=== PATIENT | male | born 1950 | race Caucasian/White ===

== ENCOUNTER 2017-07-24 17:44 | Emergency (ER) | payer MEDICARE, MEDICAID, SELFPAY ==
[2017-07-24 17:45] VITALS: BP 158/75; PULSE 74; RESP 20; TEMP 36.6; O2SAT 97; BMI 23.6
--- NOTE | 2017-07-24 18:08 | EKG12_ITS ---
Test Reason : COUGH Blood Pressure : / mmHG Vent. Rate : 057 BPM Atrial Rate : 057 BPM P-R Int : 192 ms QRS Dur : 080 ms QT Int : 386 ms P-R-T Axes : 039 046 063 degrees QTc Int : 375 ms Sinus bradycardia Low voltage QRS (limb leads) Confirmed by CARLIN RANDALL, KENNY ([id number]), editor newspaper HATTIE MARTINES ([id number]) on 07/25/2017 10:07:47 AM Referred By: DC Confirmed By:KENNY GILLIS MD
[2017-07-24] MEDS: Doxycycline 100 MG CAPSULE PO (18:15)
--- NOTE | 2017-07-24 18:15 | ED.VISSUMM ---
- ER Visit Summary Date of Service: 07/24/17 Chief Complaint: Shortness of breath History of Present Illness: The patient is a 67 M with worsening shortness of breath since yesterday. The patient has a history of COPD. He does report some chest tightness. Increased sputum. He tried albuterol, but had minimal relief. No fevers. Patient takes Coumadin. His INR check today was 2.0 per family. Physical Examination: Afebrile and vital signs unremarkable. 97% on room air. The patient has expiratory wheezing throughout all batres. Heart regular. Skin appears normal. Sitting comfortably in no acute distress. Test Results: EKG, chest x-ray, labs pending Emergency Department Course and Treatment: Patient was treated with nebulizers. Also received prednisone while awaiting results. X-ray unremarkable. No acute changes. No infiltrate. EKG showed sinus rhythm at a rate of 57. No sign of acute ischemia or infarction. CBC, BMP, and troponin normal. Patient was reassessed. He had improvement in his symptoms. Will prescribe a course of prednisone and albuterol. Should also treated with doxycycline. Patient was advised that doxycycline can raise his INR and make his blood thin. Patient's next INR check is in 2 weeks. I advised him that this is too long. He must get his INR rechecked in the next 2-3 days. Patient and family voiced understanding and agreement. They will get his INR rechecked on Monday or of this week. Patient will be discharged. Follow-up with primary care. Smoking cessation was advised. Treatment Plan: As above Disposition: Discharge Impression: 1. COPD exacerbation This note was generated with [employer] dictation software. It may contain incorrect words, spelling, and punctuation that were not noted in review of the chart prior to signing ED Disposition - Plan for ED Patient: Chief Complaint: Cough Instructions: ED COPD Flare Prescriptions: Albuterol Inhaler [Ventolin Hfa] 2 puff INHALATION Q4H PRN PRN #1 inhaler PRN Reason: Wheezing Prednisone 40 mg PO DAILY #8 tab Doxycycline Hyclate 1 tab PO BID #14 cap Referrals: Daija Douglas MD [Primary Care Provider] -
--- NOTE | 2017-07-24 18:20 | RAD_ITS ---
STUDY: X-RAY CHEST REASON FOR EXAM: Male, 67 years old. Cough TECHNIQUE: AP portable COMPARISON: January 12, 2016 FINDINGS: There is mild interstitial thickening in both lower lobes. There is no demonstrated pleural abnormality. Heart is upper normal size. Normal mediastinum and gale. Normal visualized pulmonary arteries. Normal visualized aortic arch and descending thoracic aorta. Normal visualized thoracic spine. Normal visualized ribs, clavicles, and shoulders. There is no demonstrated abnormality of the visualized soft tissue structures of the upper abdomen. No significant change since prior exam RAD/Chest 1 View (Portable) IMPRESSION: Chronic interstitial thickening at the lung bases. No acute infiltration Electronically Signed: Gonzales Chaney MD at 19:16 EST , Service support ,
[2017-07-24 18:25] VITALS: PULSE 80; RESP 20
[2017-07-24] MEDS: Albuterol 2.5 MG/3 ML VIAL.NEB. INHALATION (18:25)
[2017-07-24] MEDS: Ipratropium/Albuterol Sulfate 3 ML AMPUL.NEB INHALATION (18:25)
[2017-07-24 18:41] LABS: Absolute Lymphocyte Count 1.65 X10^3/ul (0.83-4.51); Absolute Neutrophil Count 5.6 X10^3/uL (2.0-7.7); Basophil# 0.05 X10^3/uL; Basophil% 0.6 % (0-1); Eosinophil# 0.09 X10^3/uL; Eosinophils% 1.1 % (0-5); Hemoglobin 15.4 g/dl (13.0-16.5); Lymphocyte # 1.65 X10^3/ul (4.0); Lymphocyte % 20.8 % (19-41); Mean Corp Hgb Conc 33.5 g/gl (32-36); Mean Corpuscular Hgb 33.6 pg (27.0-32.0); Mean Corpuscular Volume 100.2 fL (80-94); Monocyte# 0.53 X10^3/uL; Monocyte% 6.7 % (0-10); Neutrophil % 70.5 % (47-70); Platelet Count 223 K/mm3 (150-450); RBC Distribution Width CV 13.2 % (11.6-14.6); RBC Distribution Width SD 47.9 fl (35.1-43.9); Red Blood Count 4.59 M/mm3 (4.6-6.2); White Blood Count 7.9 K/mm3 (4.4-11.0)
[2017-07-24 18:42] LABS: POSITIVE COUNT NO; POSITIVE DIFFERENTIAL NO; POSITIVE MORPHOLOGY NO
[2017-07-24 19:02] LABS: Anion Gap 7 (5-15); BUN 15 mg/dL (7-18); BUN/Creat Ratio 20.7 RATIO (10-20); Calcium,Total 9.2 mg/dL (8.5-10.1); Chloride 105 mmol/L (98-107); Creatinine, Serum 0.72 mg/dL (0.70-1.30); EST Glomerular Filtration Rate 114 mL/min (>60); Est Glom Filt Rate - Afr Amer 138 mL/min (>60); Glucose 86 mg/dL (74-106); Potassium 3.5 mmol/L (3.5-5.1); Sodium Level 140 mmol/L (136-145)
[2017-07-24 20:09] VITALS: BP 144/78; PULSE 61; RESP 20; O2SAT 94
--- NOTE | 2017-07-24 20:13 | ED.DEP ---
ED Disposition - Plan for ED Patient: Chief Complaint: Cough Instructions: ED COPD Flare Prescriptions: Albuterol Inhaler [Ventolin Hfa] 2 puff INHALATION Q4H PRN PRN #1 inhaler PRN Reason: Wheezing Prednisone 40 mg PO DAILY #8 tab Doxycycline Hyclate 1 tab PO BID #14 cap Referrals: Daija Douglas MD [Primary Care Provider] -
[2017-07-24] MEDS: Acetaminophen 500 MG Tablet 1000 MG PO (20:30)
[2017-07-24 20:32] VITALS: PULSE 60; RESP 22; O2SAT 93
== END 2017-07-24 20:33 | disposition home or self-care (01) ==
LOC: ED 18:41
PROVIDERS: Emergency Provider Emergency Medicine; Family Provider Internal Medicine; PCP Internal Medicine
DX: J44.1 Chronic obstructive pulmonary disease with (acute) exacerbation (principal); R07.9 Chest pain, unspecified; G93.0 Cerebral cysts; I25.2 Old myocardial infarction; Z72.0 Tobacco use; Z79.01 Long term (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 of anticoagulants; Z79.51 Long term (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 of inhaled steroids; Z79.82 Long term (current) use of aspirin; Z79.891 Long term (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 of opiate analgesic; Z79.899 Other long term (current) drug therapy
CPT/HCPCS: 71045; 80048; 84484; 85025; 93005; 94640; 99284

== ENCOUNTER → 2017-08-23 13:14 | Outpatient (CLI) | payer MEDICARE, MEDICAID, SELFPAY ==
[2017-08-23 15:57] LABS: Amphetamine Urine VISTA NEGATIVE (<1000 ng/mL); Barbiturate Urine VISTA NEGATIVE (< 200 ng/mL); Benzodiazepine Urine VISTA NEGATIVE (< 200 ng/mL); Cocaine Urine VISTA NEGATIVE (< 300 ng/mL); Ecstacy Urine VISTA NEGATIVE (< 500 ng/mL); Methadone Urine VISTA NEGATIVE (< 300 ng/mL); PCP Urine VISTA NEGATIVE (< 25 ng/mL); THC Urine VISTA NEGATIVE (< 50 ng/mL); Vista UDS pH Range 6
== END ==
PROVIDERS: Family Provider Internal Medicine; PCP Internal Medicine; Visit Provider Anesthesiology Pain Medicine
DX: R69 Illness, unspecified (principal)
CPT/HCPCS: 80307

== ENCOUNTER 2017-09-29 11:18 | Emergency (ER) | payer MEDICARE, MEDICAID, SELFPAY ==
[2017-09-29 11:18] VITALS: BP 156/73; PULSE 54; RESP 16; TEMP 37.2; O2SAT 95; BMI 23.4
--- NOTE | 2017-09-29 11:48 | VDLE_ITS ---
Reason For Study: LEG PAIN Procedure LEFT Exam performed portable in ED. GSV is normal. A preliminary report was called and/or faxed CFV is compressible, spontaneous, phasic, to Dr. Tapia. competent, and demonstrates normal augmentation. FV is compressible, spontaneous, phasic, competent and demonstrates normal augmentation. POP V is compressible, spontaneous, phasic, competent and demonstrates normal augmentation. T/P Trunk is compressible. PTV is compressible. LT PerV is compressible. Interpretation Summary Deep veins of the left lower extremity are patent and compressible segmentally. There is no evidence of left lower extremity deep vein thrombosis. Valvular competence appears intact within the proximal deep venous system on the left . The left greater saphenous vein appears patent and compressible segmentally. Ordering Physician: Perfecto Tapia Referring Physician: Elisha Vizcarra Performed By: Nya Bansal RVT
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
[2017-09-29 12:41] LABS: International Normalized Ratio 2.2; Prothrombin Time (Protime)PT. 24.5 SECONDS (11.7-14.9)
--- NOTE | 2017-09-29 12:52 | ED.DEP ---
ED Disposition - Plan for ED Patient: Chief Complaint: Wound Instructions: ED Hematoma Referrals: Daija Douglas MD [Primary Care Provider] -
== END 2017-09-29 13:35 | disposition home or self-care (01) ==
LOC: ED 12:46
PROVIDERS: Emergency Provider Emergency Medicine; Family Provider Internal Medicine; PCP Internal Medicine
DX: S70.12XA Contusion of left thigh, initial encounter (principal); Z86.718 Personal history of other venous thrombosis and embolism; Z86.711 Personal history of pulmonary embolism; Z79.01 Long term (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 of anticoagulants; F17.210 Nicotine dependence, cigarettes, uncomplicated; W22.8XXA Striking against or struck by other objects, initial encounter; Y93.89 Activity, other specified; Y92.89 Other specified places as the place of occurrence of the external cause; Y99.8 Other external cause status
CPT/HCPCS: 36415; 85610; 93971; 99282

== ENCOUNTER 2017-10-26 15:26 | Emergency (ER) | payer MEDICARE, MEDICAID, SELFPAY ==
[2017-10-26 15:27] VITALS: BP 172/73; PULSE 60; RESP 24; TEMP 36.4; O2SAT 95; BMI 23.5
--- NOTE | 2017-10-26 15:44 | CT_ITS ---
STUDY: CT BRAIN WITHOUT CONTRAST REASON FOR EXAM: Male, 67 years old. Headache on Coumadin. RADIATION DOSAGE (If Supplied By Facility): CTDIvol = ( 44.99 ) mGy, DLP = ( 829.85 ) mGycm TECHNIQUE: Transaxial CT imaging of the brain was performed without administration of intravenous contrast material. Individualized dose optimization techniques were used for this CT. COMPARISON: Prior head CT exam of October 17, 2015 FINDINGS: Normal soft tissue structures. Normal calvarium. There is mild cerebral atrophy with widening of the extra-axial spaces and ventricular dilatation. There are areas of decreased attenuation within the white matter tracts of the supratentorial brain, consistent with microvascular disease changes. Normal basal ganglia and thalami. Normal brainstem. Normal cerebellum. There is no intracranial hemorrhage. There are no findings of an acute ischemic infarction. Normal visualized paranasal sinuses. CT/Brain/Head without Contrast IMPRESSION: No acute intracranial findings. Negative for hemorrhage, hematoma or mass density. Mild atrophy and chronic small vessel ischemic changes. Carotid artery calcifications. Normal paranasal sinuses. Electronically Signed: Evelia Pitts MD at 16:35 EDT , Service support ,
[2017-10-26] MEDS: DiphenhydrAMINE 50 MG/ML Syringe 25 MG IV (16:01)
[2017-10-26 16:25] LABS: International Normalized Ratio 1.7
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
[2017-10-26] MEDS: morphine 8 MG/ML Syringe 6 MG IV (17:35)
[2017-10-26] MEDS: Ondansetron 4 MG/2 ML Vial IV (17:36)
[2017-10-26 17:37] VITALS: BP 162/70; PULSE 61; RESP 16; O2SAT 96
--- NOTE | 2017-10-26 18:28 | ED.DEP ---
ED Disposition - Plan for ED Patient: Disposition: Home or Assisted Living Chief Complaint: Headache Instructions: ED Cephalgia Unspecified Referrals: Daija Douglas MD [Primary Care Provider] - 3-5 Days if not improving Additional Instructions: Follow-up your primary care physician or return to ER feeling worse.
[2017-10-26 18:34] VITALS: PULSE 67; RESP 14; O2SAT 97
== END 2017-10-26 18:35 | disposition home or self-care (01) ==
PROVIDERS: Emergency Provider Emergency Medicine; Family Provider Internal Medicine; PCP Internal Medicine
DX: R51 Headache (principal); I25.2 Old myocardial infarction; I10 Essential (primary) hypertension; Z79.01 Long term (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 of anticoagulants; Z86.73 Personal history of transient ischemic attack (TIA), and cerebral infarction without residual deficits; Z95.5 Presence of coronary angioplasty implant and graft; Z72.0 Tobacco use; Z79.51 Long term (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 of inhaled steroids; Z79.82 Long term (current) use of aspirin; Z79.891 Long term (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 of opiate analgesic; Z79.899 Other long term (current) drug therapy
CPT/HCPCS: 70450; 85610; 96374; 96375; 99283; A4216; J2405

== ENCOUNTER 2017-10-27 09:05 | Emergency (ER) | payer MEDICARE, MEDICAID, SELFPAY ==
[2017-10-27 09:06] VITALS: BP 146/78; PULSE 56; RESP 17; TEMP 35.9; O2SAT 94; BMI 23.8
--- NOTE | 2017-10-27 09:30 | ED.DCSUM_ITS ---
- ER Visit Summary Date of Service: 10/27/17 Chief Complaint: Headache History of Present Illness: The patient is a 67 M who was seen last night for left-sided headache. He had a negative head CT and was given Benadryl without improvement. He states he was given a dose of morphine and felt better and went home. He states that by time he went to bed his headache was hurting worse. States he had migraines in the past but in the past several years has not really had any. He notes the headache is left-sided in the retro-orbital region. He describes it as throbbing sensation. He states it is affecting his vision today stating that his left eye is blurry. When asked him to describe it any further he states it just feels like his eye is numb. He is lined in the right eye. He states he has some nausea but no vomiting. He denies any light sensitivity. No rashes. Physical Examination: Afebrile vital signs are stable Gen: Well-nourished well-developed Head: Normocephalic atraumatic Eyes: Left eye PERRL EOMI. right eye demonstrates strabismus and pupillary dilatation. ENT: TMs clear no rhinorrhea moist mucous membranes Neck: Supple no lymphadenopathy no JVD nontender CVS: Regular rate rhythm no murmurs normal S1-S2 Respiratory: No distress clear to auscultation bilaterally chest nontender Abdomen: Soft nontender nondistended normal bowel sounds no masses Back: Nontender Extremity: Nontender no edema Skin: Normal color no rash Neuro: alert orientated ?3 CN II-XII intact normal strength sensation reflexes gait cerebellar Psych: Normal affect normal mood Test Results: ESR 3. INR 1.5. White count 5.4. Emergency Department Course and Treatment: CT was reviewed from yesterday. Patient received Toradol Compazine and Benadryl and fluids. He states he was in a better. He received a dose of Solu-Medrol and as he was getting the dose that his headache was actually getting better. He has been resting comfortably. Patient was advised his INR was subtherapeutic and he will double his dose of Coumadin tonight and tomorrow have his doctor recheck it after the weekend. He will be discharged home to follow-up with his doctors return if worsening. Impression:. Headache This note was generated with [employer] dictation software. It may contain incorrect words, spelling, and punctuation that were not noted in review of the chart prior to signing ED Disposition - Plan for ED Patient: Disposition: Home or Assisted Living Chief Complaint: Headache Instructions: ED Cephalgia Unspecified Referrals: Daija Douglas MD [Primary Care Provider] - (call to arrange follow up)
[2017-10-27 09:36] LABS: Absolute Lymphocyte Count 1.41 X10^3/ul (0.83-4.51); Absolute Neutrophil Count 3.4 X10^3/uL (2.0-7.7); Basophil# 0.09 X10^3/uL; Basophil% 1.7 % (0-1); Eosinophil# 0.14 X10^3/uL; Eosinophils% 2.6 % (0-5); Hemoglobin 12.8 g/dl (13.0-16.5); Lymphocyte # 1.41 X10^3/ul (4.0); Lymphocyte % 26.2 % (19-41); Mean Corpuscular Hgb 31.7 pg (27.0-32.0); Mean Platelet Vol. 9.7 fl (6.2-12.0); Monocyte% 7.4 % (0-10); Neutrophil # 3.35 X10^3/uL (2.7-7.7); Neutrophil % 62.1 % (47-70); Platelet Count 238 K/mm3 (150-450); RBC Distribution Width CV 13.4 % (11.6-14.6); Red Blood Count 4.04 M/mm3 (4.6-6.2); White Blood Count 5.4 K/mm3 (4.4-11.0)
[2017-10-27] MEDS: 0.9% Normal Saline 1,000 ML 1000 ML IV (09:39)
[2017-10-27] MEDS: DiphenhydrAMINE 50 MG/ML Syringe 25 MG IV (09:39)
[2017-10-27] MEDS: proCHLORPERazine 10 MG/2 ML Vial IV (09:40)
[2017-10-27] MEDS: Ketorolac 30 MG/ML Syringe IV (09:40)
[2017-10-27 09:45] LABS: POSITIVE COUNT NO; POSITIVE DIFFERENTIAL NO; POSITIVE MORPHOLOGY NO
[2017-10-27 09:49] LABS: Erythrocyte Sedimentation Rate 3 mm/hr (0-20)
[2017-10-27 09:53] LABS: International Normalized Ratio 1.5; Prothrombin Time (Protime)PT. 18.5 SECONDS (11.7-14.9)
[2017-10-27] MEDS: MethylPREDNISolone 125 MG/2 ML Vial IV (11:04)
[2017-10-27 12:06] VITALS: BP 135/70; PULSE 60; RESP 14; O2SAT 99
[2017-10-27 13:24] VITALS: BP 128/70; PULSE 80; RESP 14; O2SAT 99
== END 2017-10-27 13:34 | disposition home or self-care (01) ==
PROVIDERS: Emergency Provider Emergency Medicine; Family Provider Internal Medicine; PCP Internal Medicine
DX: R51 Headache (principal); J44.9 Chronic obstructive pulmonary disease, unspecified; I10 Essential (primary) hypertension; K27.9 Peptic ulcer, site unspecified, unspecified as acute or chronic, without hemorrhage or perforation; Z72.0 Tobacco use; Z79.51 Long term (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 of inhaled steroids; Z79.01 Long term (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 of anticoagulants; Z79.82 Long term (current) use of aspirin; Z79.891 Long term (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 of opiate analgesic; Z79.899 Other long term (current) drug therapy
CPT/HCPCS: 85025; 85610; 85652; 96361; 96374; 96375; 99283; J7030; A4216

== ENCOUNTER 2017-11-13 14:31 | Emergency (ER) | payer MEDICARE, MEDICAID, SELFPAY ==
[2017-11-13 14:31] VITALS: BP 173/87; PULSE 59; RESP 16; TEMP 36.4; O2SAT 98; BMI 23.1
--- NOTE | 2017-11-13 15:31 | ED.DCSUM_ITS ---
- ER Visit Summary Date of Service: 11/13/17 Chief Complaint: Nausea, vomiting, diarrhea History of Present Illness: The patient is a 67 M ends to the emergency department with 2 days of nausea, vomiting, diarrhea, and abdominal cramping. The patient states that he felt like he ate bad food 2 days ago. He states that about 6 hours after he ate, he began to have some diffuse abdominal cramping. He has been nauseated with multiple bouts of emesis. He has had loose watery diarrhea. He denies any blood in the diarrhea or the emesis. Patient is on Coumadin for history of peripheral vascular disease and DVT. He also has a history of ulcerative colitis. He has had no blood in his bowel movements. He denies any fevers or chills. He has not found anything that improves the symptoms. Physical Examination: Vital signs reviewed General: Well-nourished, well-developed Head: Normocephalic, atraumatic Eyes: Pupils equal and reactive, extraocular muscles intact Neck, supple, no lymphadenopathy Heart: Regular rate and rhythm Respiratory: No distress, clear bilaterally Abdomen: Soft, nontender, nondistended, no peritoneal signs Back: Nontender Extremities: Nontender, no edema, no cords Skin: Normal color no rash Neuro: Alert and oriented, no focal or lateralizing deficits Test Results: [] Emergency Department Course and Treatment: Patient has a abdomen. I cannot re- create any pain. I did obtain screening labs which are unremarkable. The patient was treated with fluids, Zofran, and Bentyl. He did have improvement of his cramping and nausea. At this time, I do not suspect a dangerous process. He has had no blood in his diarrhea. His INR is mildly subtherapeutic , but his hemoglobin is normal. I do feel that this is likely from the food that he ate. The patient will be treated symptomatically. Again, his reevaluation is unremarkable. He will be discharged home. Treatment Plan: [] Disposition: Charge Impression:. Gastroenteritis This note was generated with [employer] dictation software. It may contain incorrect words, spelling, and punctuation that were not noted in review of the chart prior to signing ED Disposition - Plan for ED Patient: Chief Complaint: Nausea/Vomiting/Diarrhea Instructions: ED Food Poison Or Gastroenteritis Prescriptions: Ondansetron [Zofran Odt] 4 mg PO Q8H PRN PRN #10 tab PRN Reason: Nausea Dicyclomine HCl [Bentyl] 20 mg PO TIDAC #20 cap Referrals: Daija Douglas MD [Primary Care Provider] -
[2017-11-13] MEDS: Dicyclomine 20 MG/2 ML Vial IM (15:46)
[2017-11-13] MEDS: 0.9% Normal Saline 1,000 ML 1000 ML IV (15:46)
[2017-11-13] MEDS: Morphine 4 MG/ML Syringe IV (15:46)
[2017-11-13] MEDS: proMETHazine 25 MG/ML Syringe 6.25 MG IV (15:46)
[2017-11-13 15:47] LABS: Absolute Lymphocyte Count 1.55 X10^3/ul (0.83-4.51); Absolute Neutrophil Count 6.3 X10^3/uL (2.0-7.7); Basophil# 0.04 X10^3/uL; Basophil% 0.5 % (0-1); Eosinophil# 0.11 X10^3/uL; Eosinophils% 1.3 % (0-5); Hematocrit 46.3 % (40-54); Hemoglobin 15.3 g/dl (13.0-16.5); Lymphocyte # 1.55 X10^3/ul (4.0); Lymphocyte % 17.9 % (19-41); Mean Corpuscular Hgb 31.5 pg (27.0-32.0); Mean Corpuscular Volume 95.5 fL (80-94); Mean Platelet Vol. 9.6 fl (6.2-12.0); Monocyte# 0.68 X10^3/uL; Monocyte% 7.9 % (0-10); Neutrophil # 6.26 X10^3/uL (2.7-7.7); Neutrophil % 72.3 % (47-70); Platelet Count 324 K/mm3 (150-450); RBC Distribution Width CV 13.2 % (11.6-14.6); RBC Distribution Width SD 45.9 fl (35.1-43.9); Red Blood Count 4.85 M/mm3 (4.6-6.2); White Blood Count 8.7 K/mm3 (4.4-11.0)
[2017-11-13 15:51] VITALS: PULSE 60; RESP 16
[2017-11-13 15:55] LABS: POSITIVE COUNT NO; POSITIVE DIFFERENTIAL NO; POSITIVE MORPHOLOGY NO
[2017-11-13 16:17] LABS: ALB/GLOB Ratio 1.2 RATIO (0.9-2.4); AST(SGOT) 29 U/L (15-37); Alanine Aminotransfer ALT/SGPT 29 U/L (16-61); Albumin, Serum 4.3 g/dL (3.2-5.0); Alkaline Phosphatase 85 U/L (45-117); Anion Gap 8 (5-15); BUN 24 mg/dL (7-18); BUN/Creat Ratio 23.3 RATIO (10-20); Calcium,Total 9.1 mg/dL (8.5-10.1); Chloride 99 mmol/L (98-107); Creatinine, Serum 1.03 mg/dL (0.70-1.30); EST Glomerular Filtration Rate 76 mL/min (>60); Est Glom Filt Rate - Afr Amer 92 mL/min (>60); Estimated Creatinine Clearance 66.41 ml/min; Globulin 3.5 g/dL (2.2-4.2); Glucose 98 mg/dL (74-106); Lipase 120 U/L (73-393); Potassium 3.9 mmol/L (3.5-5.1); Protein, Total 7.8 g/dL (6.4-8.2); Sodium Level 137 mmol/L (136-145)
[2017-11-13 16:30] LABS: International Normalized Ratio 1.9; Prothrombin Time (Protime)PT. 21.4 SECONDS (11.7-14.9)
[2017-11-13 16:53] VITALS: BP 163/76; PULSE 52; RESP 16
[2017-11-13 17:26] VITALS: PULSE 78; RESP 16
== END 2017-11-13 17:26 | disposition home or self-care (01) ==
LOC: ED 15:55
PROVIDERS: Emergency Provider Emergency Medicine; Family Provider Internal Medicine; PCP Internal Medicine
DX: K52.9 Noninfective gastroenteritis and colitis, unspecified (principal); I73.9 Peripheral vascular disease, unspecified; Z86.718 Personal history of other venous thrombosis and embolism; Z79.01 Long term (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 of anticoagulants; Z87.19 Personal history of other diseases of the digestive system
CPT/HCPCS: 80053; 83690; 85025; 85610; 96361; 96372; 96374; 96375; 99284; J7030; A4216

== ENCOUNTER 2017-12-10 15:49 | Emergency (ER) | payer MEDICARE, SELFPAY ==
[2017-12-10 15:50] VITALS: BP 144/86; PULSE 62; RESP 16; TEMP 36.6; O2SAT 97; BMI 24.3
--- NOTE | 2017-12-10 16:12 | ED.DCSUM_ITS ---
- ER Visit Summary Date of Service: 12/10/17 Chief Complaint: Right leg pain History of Present Illness: The patient is a 67 M right calf pain for 16 weeks. He is not sure what brought this on. He can feel a lump. His PCP thought that it would resolve on its own. He presents today for continued symptoms and pain. He denies any other associated symptoms like shortness of breath or chest pain. Denies any new weakness or numbness in his leg. Denies any skin changes. Physical Examination: Vital signs unremarkable. Patient is alert and oriented. No acute distress. Sitting and breathing comfortably. Inspection is unremarkable. He is neurovascularly intact distally. Moves all extremities. Good range of motion. Good strength and sensation. He does have a soft palpable cord running transversely over his mid right calf. Test Results: Ultrasound not available at this time. Emergency Department Course and Treatment: Patient likely has an SVT or hematoma. I would like to get an ultrasound, but it is not available. He is on anticoagulation. I have low suspicion for DVT. I will arrange for an outpatient ultrasound. He was treated with pain medicine here. Follow-up with his pain doctor. Return for any new or worsening issues. Treatment Plan: As above Disposition: Discharge Impression: 1. Right calf pain This note was generated with [employer] dictation software. It may contain incorrect words, spelling, and punctuation that were not noted in review of the chart prior to signing ED Disposition - Plan for ED Patient: Chief Complaint: Lower Extremity Injury Referrals: Daija Douglas MD [Primary Care Provider] -
--- NOTE | 2017-12-10 16:12 | ED.DEP ---
ED Disposition - Plan for ED Patient: Chief Complaint: Lower Extremity Injury Instructions: Possible Causes of Low Back or Leg Pain Referrals: Daija Douglas MD [Primary Care Provider] -
[2017-12-10] MEDS: HYDROcodone Bitartrate/Apap 5/325 Tablet PO (16:14)
== END 2017-12-10 16:18 | disposition home or self-care (01) ==
PROVIDERS: Emergency Provider Emergency Medicine; Family Provider Internal Medicine; PCP Internal Medicine
DX: M79.661 Pain in right lower leg (principal); J44.9 Chronic obstructive pulmonary disease, unspecified; I10 Essential (primary) hypertension; F41.9 Anxiety disorder, unspecified; Z72.0 Tobacco use; Z79.01 Long term (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 of anticoagulants; Z79.891 Long term (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 of opiate analgesic; Z79.51 Long term (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 of inhaled steroids; Z79.82 Long term (current) use of aspirin; Z79.899 Other long term (current) drug therapy
CPT/HCPCS: 99283

== ENCOUNTER → 2017-12-11 12:56 | Outpatient (CLI) | payer MEDICARE, SELFPAY ==
--- NOTE | 2017-12-11 13:03 | VDLE_ITS ---
Reason For Study: LEG PAIN RIGHT LEFT GSV is normal. CFV is compressible, spontaneous, phasic, CFV is compressible, spontaneous, phasic, competent, and demonstrates normal competent and demonstrates normal augmentation. augmentation. FV is compressible, spontaneous, phasic, competent and demonstrates normal augmentation. POP V is compressible, spontaneous, phasic, competent and demonstrates normal augmentation. T/P Trunk is compressible. PTV is compressible. RT PerV is compressible. Procedure Exam performed in department. Interpretation Summary Deep veins of the right lower extremity are patent and compressible segmentally. There is no evidence of right lower extremity deep vein thrombosis. Valvular competence appears intact within the proximal deep venous system on the right . The right greater saphenous vein appears patent and compressible segmentally. Ordering Physician: Juan Lopez Referring Physician: Daija Douglas Performed By: Nya Bansal RVT
== END ==
PROVIDERS: Family Provider Internal Medicine; PCP Internal Medicine; Visit Provider Emergency Medicine
DX: M79.89 Other specified soft tissue disorders (principal)
CPT/HCPCS: 93971

== ENCOUNTER 2017-12-14 16:30 | Emergency (ER) | payer MEDICARE, SELFPAY ==
[2017-12-14 16:31] VITALS: BP 172/78; PULSE 71; RESP 18; TEMP 36.7; O2SAT 96; BMI 23.8
--- NOTE | 2017-12-14 17:10 | ED.DCSUM_ITS ---
- ER Visit Summary Date of Service: 12/14/17 Chief Complaint: Left thigh pain History of Present Illness: The patient is a 67 M presenting with left thigh pain. Patient is a poor historian. He states this has been ongoing for several years. Patient had right leg pain last week and was seen in the ED at that time. He was seen by his primary care physician yesterday. Today he called the ambulance due to pain in his left hip and thigh. He has a history of peripheral vascular disease with stents. He has not seen his vascular surgeon in the past year. He denies fever. He is able to ambulate with a cane and/or walker. Denies recent fall. Physical Examination: Vitals are stable. Patient is afebrile. Alert no acute distress. HEENT exam is unremarkable. Neck is supple. Lungs are clear and equal bilaterally. Heart is regular rate and rhythm. Abdomen is soft nontender nondistended. Extremities mild left inner thigh tenderness, no erythema or warmth. Active full range of motion. Normal strength. Dopplerable DP and PT pulses. Skin is warm and dry. No focal neurologic deficit. Remainder of exam is unremarkable. Emergency Department Course and Treatment: INR 1.9. Venous Doppler shows no evidence of DVT. He was given morphine IM ?1. He is advised to follow-up with his primary care physician and his vascular surgeon. He is advised return to ED for any worsening complaints. Disposition: Discharge home Impression: Chronic left lower extremity pain This note was generated with [employer] dictation software. It may contain incorrect words, spelling, and punctuation that were not noted in review of the chart prior to signing ED Disposition - Plan for ED Patient: Chief Complaint: Lower Extremity Injury Referrals: Daija Douglas MD [Primary Care Provider] -
[2017-12-14 17:32] LABS: International Normalized Ratio 1.9; Prothrombin Time (Protime)PT. 21.5 SECONDS (11.7-14.9)
--- NOTE | 2017-12-14 17:38 | US_ITS ---
STUDY: VENOUS DOPPLER ULTRASOUND - LEFT LOWER EXTREMITY REASON FOR EXAM: Male, 67 years old. Left hip and thigh pain. TECHNIQUE: Ultrasound evaluation of the deep vein system to include biares-scale imaging and compression was performed. Baires-scale imaging and Doppler sonographic evaluation, including duplex spectral analysis and qualitative color flow sonography, was performed. COMPARISON: None. FINDINGS: Common Femoral Vein: Normal compression, spontaneity and augmentation. Normal color Doppler. Common Femoral Vein/Greater Saphenous Junction: Normal compression and color flow. Femoral Proximal: Normal compression and color flow. Femoral Middle: Normal compression, spontaneity and augmentation. Normal color Doppler. Femoral Distal: Normal compression and color flow. Popliteal Vein: Normal compression, spontaneity and augmentation. Normal color Doppler. Posterior Tibial Vein: Normal compression and color flow. Peroneal Vein: Normal compression and color flow. US/Venous Duplex Imag/Limited/Uni IMPRESSION: Normal venous Doppler ultrasound of the lower extremity. Electronically Signed: Evelia Pitts MD at 18:35 EDT , Service support ,
--- NOTE | 2017-12-14 18:44 | ED.DEP ---
ED Disposition - Plan for ED Patient: Chief Complaint: Lower Extremity Injury Instructions: ED Chronic Pain Management Referrals: Daija Douglas MD [Primary Care Provider] -
[2017-12-14] MEDS: morphine 8 MG/ML Syringe 6 MG IM (18:53)
[2017-12-14] MEDS: Ondansetron 4 MG/2 ML Vial IM (18:53)
[2017-12-14 18:56] VITALS: BP 192/64; PULSE 65; RESP 18; O2SAT 95
[2017-12-14 19:02] VITALS: BP 163/71
== END 2017-12-14 19:14 | disposition home or self-care (01) ==
LOC: ED 17:08
PROVIDERS: Emergency Provider Emergency Medicine; Family Provider Internal Medicine; PCP Internal Medicine
DX: M79.652 Pain in left thigh (principal); M25.552 Pain in left hip; G89.29 Other chronic pain; J44.9 Chronic obstructive pulmonary disease, unspecified; I10 Essential (primary) hypertension; I73.9 Peripheral vascular disease, unspecified; Z79.82 Long term (current) use of aspirin; Z79.01 Long term (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 of anticoagulants; Z79.899 Other long term (current) drug therapy; Z72.0 Tobacco use
CPT/HCPCS: 36415; 85610; 93971; 96372; 99284; J2405

== ENCOUNTER → 2017-12-21 20:03 | Outpatient (CLI) | payer MEDICARE, SELFPAY | PROVIDERS: Family Provider Internal Medicine; PCP Internal Medicine; Visit Provider Internal Medicine | DX: G47.33 Obstructive sleep apnea (adult) (pediatric) (principal) | CPT/HCPCS: 95810 ==

== ENCOUNTER → 2018-01-10 13:38 | Outpatient (CLI) | payer MEDICARE, SELFPAY ==
[2018-01-10 14:13] LABS: Amphetamine Urine VISTA NEGATIVE (<1000 ng/mL); Barbiturate Urine VISTA NEGATIVE (< 200 ng/mL); Benzodiazepine Urine VISTA NEGATIVE (< 200 ng/mL); Cocaine Urine VISTA NEGATIVE (< 300 ng/mL); Ecstacy Urine VISTA NEGATIVE (< 500 ng/mL); Methadone Urine VISTA NEGATIVE (< 300 ng/mL); PCP Urine VISTA NEGATIVE (< 25 ng/mL); THC Urine VISTA NEGATIVE (< 50 ng/mL); Vista UDS pH Range 6
== END ==
PROVIDERS: Family Provider Internal Medicine; PCP Internal Medicine; Visit Provider Anesthesiology Pain Medicine
DX: F11.20 Opioid dependence, uncomplicated (principal)
CPT/HCPCS: 80307

== ENCOUNTER 2018-02-28 11:30 | Outpatient (RCR) | payer MEDICARE, SELFPAY ==
--- NOTE | 2017-12-18 08:51 | HP.PTEVAL_ITS ---
Patient's Visit Information PEDRO PABLO SIERRA is a 67 year old M referred to Physical Therapy by Elisha Vizcarra with a diagnosis of Back Pain and Leg Weakness. Date of Evaluation: 12/18/17 Physical Therapist: Marnie Mendez, PT - Visit Plan Frequency: 2x /Week Duration: 4 Weeks Plan: Therapeutic exercises and activities to target BLE, core and low back strength, endurance, ROM and flexibility. Gait and balance training for improved mobility. Modalities and manual as needed to decrease pain and increase ROM. Incorporate HEP to promote maintainence and progression. - Subjective Subjective: Piero Patient presents in therapy today with chief complaint of low back pain and left leg weakness that started about a week ago and states it is due to the heat. He reports he went to the ER on Monday and was given pain medication. He ambulates with a standard cane in right hand and reports frequent falls >10 over the past year. He lives alone and does all of the house work; lives in a mobile home. He has difficult raising his left leg to get in/out of car, walking, standing. Reports at times his hips hurt so bad that it feels like his legs are going to get out. He gets short winded easily with activities. At times he has to use his rollator. At times he has numbness or tingling down legs but not consistent. Has stents in LLE. He is taking a pain pill to help relieve pain and reports that pain is best when he is sitting in recliner. Has had x-ray and MRI but not at most recent physician visit - Pain low back Pain Intensity (Out of 10): 6 Pain Intensity Range: 4, 9 Comment: worsen with activity LLE Pain Intensity (Out of 10): 3 - Objective Posture: Sitting slouched, unsupported in chair with increased posterior pelvic tilt; Static standing weight shifted to RLE. Appearance: Patient has lift in left shoe due to leg length difference; kyphotic thoracic posturing in standing. Sensation: Intact to light touch. Palpation: Tenderness to palpation along bilateral paraspinals with increase in tingling when palpating along R L1-L3 area; Pain to palpation along T10 area. Gait: Patient ambulating with reciprical gait pattern with cane in RUE. He displays decrease stance time on LLE and weight shifted to RLE; mild hip drop bilaterally. Strength: RLE grossly 4/5 and LLE grossly 4-/5 except left knee extension 3+/5, bilateraly hip abduction 4-/5 and bilateral hip extension 3+/5; low back strength grossly 4 -/5 and core strength grossly 3/5. ROM: WFL BLE except L hip flexion secondary to stents; mild limitation lumbar flexion and rotation bilaterally (L rotation with increase pain), moderate tightness lumbar extension and sidebending bilaterally with increase restriction R compared to L. Flexibility: Mild tightness bilateral hamstrings -15* knee extension bilaterally. Balance displays poor dynamic standing balance and fair+ static standing balance - Goals Goal 1:: Patient will increase BLE strength grossly by 1 muscle grade for improved performance with functional activities Goal Time Frame: 4-6 Weeks Goal 2:: Patient will increase core and low back strength grossly 1 muscle grade for improved posture Goal Time Frame: 6-8 Weeks Goal 3:: Patient will increase bilateral hamstring flexibility by 5* for improved mobility Goal Time Frame: 4-6 Weeks Goal 4:: Patient will tolerate therapeutic exercises and activities for 10 minutes without increase in low back or leg pain Goal Time Frame: 4-6 Weeks Goal 5:: Patient will increase lumbar range of motion in all planes for improved mobility Goal Time Frame: 4-6 Weeks Goal 6:: Patient will demonstrate fair dynamic standing balance to decrease risk of fall Goal Time Frame: 6-8 Weeks - Rehabilitation Potential Physical Therapy Diagnosis: Muscle Weakness, Impaired Gait Rehabilitation Potential: Fair - Anticipated Interventions Patient/Client Instruction: Educate patient on: Condition, Plan of Care For the Purpose of:: To decrease pain, To increase ROM, To improve muscle performance and motor function, To improve ability to perform ADL's, To improve ability of physical actions for home/community/work/leisure, To increase flexibility/ROM, To improve endurance, To improve balance, To improve safety with gait Therapeutic Exercise to Include: Strength training, Endurance training, Balance training, Body mechanics, Postural training, Flexibilty training, Gait and locomotor training, Passive ROM, Active ROM, Dynamic Lumbar Stabilization For the Purpose of:: To decrease pain, To increase ROM Functional Training to Include: ADL Training, Gait training For the Purpose of:: To increase ROM, To improve muscle performance and motor function, To improve ability to perform ADL's, To improve ability of physical actions for home/community/work/leisure, To improve gait and locomotor functions For the Purpose of:: To decrease pain, To increase ROM Iontophoresis (with Dexamethozone, with Acetic acid): No For the Purpose of:: To decrease pain, To increase ROM Thank you for the opportunity to evaluate your patient. For Medicare and Medicare HMO plans, please review the plan of care and approve it. It will need to be FAXED BACK to us at [phone] for Medicare purposes. Please let me know if there are questions or concerns regarding this plan of care. Physician Signature: Date:
--- NOTE | 2018-01-22 12:16 | HP.PTREVAL_ITS ---
Elisha Flowers, It has been my pleasure to treat PEDRO PABLO SIERRA over the last 8 visits for Back Pain and Leg Weakness. Please see the progress note below for an update on the physical therapy plan of care! Subjective: PATIENT REPORTS THERAPY IS HELPING HIM. HE REPORTS IT IS HELPING HIS BACK AND LEGS GET STRONGER. PATIENT REPORTS HE SAW DR. FLOWERS December AND HE WANTS HIM TO DO SOME MORE PT BEFORE HAVING ANOTHER SHOT. LAST INJECITION WAS ABOUIT 2 MONTHS AGO. Objective/Function: PATIENT IS TOLERATING PT WELL AND WOULD BENEFIT FROM CONTINUE PT DUE TO MORE ROOM FOR IMPROVEMENT. RECOMMEND CONTINUED PT WITH FOCUS ON WRITTEN HEP. UPON EXAM, LUMBAR MVMT LOSS IS FOLLOWS: FLEX - MOD, EXT - LEE ANN, BERTA SG - LEE ANN. INCREASED KYPHOSIS. BERTA LE STRENGTH IS GROSSLY 4/5 WITH MMT'ING NOW EXEPT LEFT KNEE 4-/5 IN AVAILABLE ROM AND BERTA HIP EXT 4-/5. FULL BERTA KNEE EXT NOW WITH LEFT KNEE FLEX TO 110 DEG AND RIGHT 130 DEG IN SUPINE WITH A HEEL SLIDE. OTHERWISE - THERE ARE NO SIGNIFICANT CHANGES SINCE INITIAL EVAL. Plan Plan: CONT PT 2-3 TIMES A WEEK X 3-4 MORE WEEKS PER ORIG POC: Therapeutic exercises and activities to target BLE, core and low back strength, endurance, ROM and flexibility. Gait and balance training for improved mobility. Modalities and manual as needed to decrease pain and increase ROM. Incorporate HEP to promote maintainence and progression. PATIENT IS AGREEABLE. Goals Goal 1:: Patient will increase BLE strength grossly by 1 muscle grade for improved performance with functional activities Goal Time Frame: 4-6 Weeks Goal Progress: Progressing Goal 2:: Patient will increase core and low back strength grossly 1 muscle grade for improved posture Goal Time Frame: 6-8 Weeks Goal Progress: Progressing Goal 3:: Patient will increase bilateral hamstring flexibility by 5* for improved mobility Goal Time Frame: 4-6 Weeks Goal Progress: Progressing Goal 4:: Patient will tolerate therapeutic exercises and activities for 10 minutes without increase in low back or leg pain Goal Time Frame: 4-6 Weeks Goal Progress: Progressing Goal 5:: Patient will increase lumbar range of motion in all planes for improved mobility Goal Time Frame: 4-6 Weeks Goal Progress: Progressing Goal 6:: Patient will demonstrate fair dynamic standing balance to decrease risk of fall Goal Time Frame: 6-8 Weeks Goal Progress: Progressing Anticipated Interventions Patient/Client Instruction: Educate patient on: Condition, Plan of Care For the Purpose of:: To decrease pain, To increase ROM, To improve muscle performance and motor function, To improve ability to perform ADL's, To improve ability of physical actions for home/community/work/leisure, To increase flexibility/ROM, To improve endurance, To improve balance, To improve safety with gait Therapeutic Exercise to Include: Strength training, Endurance training, Balance training, Body mechanics, Postural training, Flexibilty training, Gait and locomotor training, Passive ROM, Active ROM, Dynamic Lumbar Stabilization For the Purpose of:: To decrease pain, To increase ROM Functional Training to Include: ADL Training, Gait training For the Purpose of:: To increase ROM, To improve muscle performance and motor function, To improve ability to perform ADL's, To improve ability of physical actions for home/community/work/leisure, To improve gait and locomotor functions For the Purpose of:: To decrease pain, To increase ROM Iontophoresis (with Dexamethozone, with Acetic acid): No For the Purpose of:: To decrease pain, To increase ROM Please do not hesitate to contact me at [phone] by phone or Fax: if you have questions or concerns regarding this new plan of care! Sincerely, Nidia Danielle
--- NOTE | 2018-02-14 11:29 | HP.PTREVAL ---
Elisha Flowers, It has been my pleasure to treat PEDRO PABLO SIERRA over the last 13 visits for Back Pain and Leg Weakness. Please see the progress note below for an update on the physical therapy plan of care! Subjective: PATIENT REPORTS SOMETHING IS MAKING HIS HIPS HURT AND HIS LEFT LEG IS HURTING MORE. HE ALSO REPORTS HIS LEFT LEG IS GETTING WEAKER FOR NO APPARENT REASON. HAD APPOINTMENT WITH DR. LLANES (FAMILY DOCTOR) YESTERDAY. ALSO SAW DR. FLOWERS 02/12/18 AND HE RECOMMENDED MORE PT. REPORTS DR. FLOWERS SAID HE ISN'T GOING TO GIVE HIM ANY MORE SHOTS YET. PATIENT REPORTS DR. FLOWERS TOLD HIM HE THINKS HE NEEDS SURGERY BUT HE ISN'T SURE BY WHOM YET. PATIENT REPORTS THAT HE IS HOPING THAT DOING MORE PT WILL HELP. HE DID SAY THAT THE SHUTTLE LEG PRESS CAUSED INCREASED PAIN. ALSO STATES IT SEEMED LIKE HIS SESSIONS WERE TOO SHORT. Objective/Function: PATIENT IS MAKING PROGRESS TOWARD AND INDEP HEP, HAS INCREASED BERTA KNEE ROM AND INCREASED BERTA LE STRENGTH ALONG WITH INCREASED LUMBAR ROM SINCE LAST RE-CHECK. UPON EXAM, LUMBAR MVMT LOSS IS FOLLOWS: FLEX - MIN, EXT - LEE ANN, BERTA SG - MOD TO LEE ANN. INCREASED KYPHOSIS. BERTA LE STRENGTH IS GROSSLY 4/5 WITH MMT'ING NOW. FULL BERTA KNEE EXT NOW WITH LEFT KNEE FLEX TO 135 DEG AND RIGHT 140 DEG IN SUPINE WITH A HEEL SLIDE. OTHERWISE - THERE ARE NO SIGNIFICANT CHANGES SINCE INITIAL EVAL. Plan Plan: TRIAL OF CONTINUED PT INCREASING TREATMENT TIME X 5 MORE VISITS FOR POSTURE CORRECTION/STRENGTHENING, INSTRUCTION IN APPROPRIATE BODY MECHANICS AND ACTIVITY MODIFICATIONS. DLS WITH A NEUTRAL SPINE. BERTA LE ROM, STRETCHING AND STRENGTHENING. FOCUS ON HEP INSTRUCTION. Goals Goal 1:: Patient will increase BLE strength grossly by 1 muscle grade for improved performance with functional activities Goal Time Frame: 4-6 Weeks Goal Progress: Progressing Goal 2:: Patient will increase core and low back strength grossly 1 muscle grade for improved posture Goal Time Frame: 6-8 Weeks Goal Progress: Progressing Goal 3:: Patient will increase bilateral hamstring flexibility by 5* for improved mobility Goal Time Frame: 4-6 Weeks Goal Progress: Progressing Goal 4:: Patient will tolerate therapeutic exercises and activities for 10 minutes without increase in low back or leg pain Goal Time Frame: 4-6 Weeks Goal Progress: Progressing Goal 5:: Patient will increase lumbar range of motion in all planes for improved mobility Goal Time Frame: 4-6 Weeks Goal Progress: Progressing Goal 6:: Patient will demonstrate fair dynamic standing balance to decrease risk of fall Goal Time Frame: 6-8 Weeks Goal Progress: Progressing Anticipated Interventions Patient/Client Instruction: Educate patient on: Condition, Plan of Care For the Purpose of:: To decrease pain, To increase ROM, To improve muscle performance and motor function, To improve ability to perform ADL's, To improve ability of physical actions for home/community/work/leisure, To increase flexibility/ROM, To improve endurance, To improve balance, To improve safety with gait Therapeutic Exercise to Include: Strength training, Endurance training, Balance training, Body mechanics, Postural training, Flexibilty training, Gait and locomotor training, Passive ROM, Active ROM, Dynamic Lumbar Stabilization For the Purpose of:: To decrease pain, To increase ROM Functional Training to Include: ADL Training, Gait training For the Purpose of:: To increase ROM, To improve muscle performance and motor function, To improve ability to perform ADL's, To improve ability of physical actions for home/community/work/leisure, To improve gait and locomotor functions For the Purpose of:: To decrease pain, To increase ROM Iontophoresis (with Dexamethozone, with Acetic acid): No For the Purpose of:: To decrease pain, To increase ROM Please do not hesitate to contact me at [phone] by phone or if you have questions or concerns regarding this new plan of care! Sincerely, Nidia Danielle
--- NOTE | 2018-02-14 12:36 | HP.PTREVAL_ITS ---
Eilsha Flowers, It has been my pleasure to treat PEDRO PABLO SIERRA over the last 13 visits for Back Pain and Leg Weakness. Please see the progress note below for an update on the physical therapy plan of care! Subjective: PATIENT REPORTS SOMETHING IS MAKING HIS HIPS HURT AND HIS LEFT LEG IS HURTING MORE. HE ALSO REPORTS HIS LEFT LEG IS GETTING WEAKER FOR NO APPARENT REASON. HAD APPOINTMENT WITH DR. LLANES (FAMILY DOCTOR) YESTERDAY. ALSO SAW DR. FLOWERS 02/12/18 AND HE RECOMMENDED MORE PT. REPORTS DR. FLOWERS SAID HE ISN' T GOING TO GIVE HIM ANY MORE SHOTS YET. PATIENT REPORTS DR. FLOWERS TOLD HIM HE THINKS HE NEEDS SURGERY BUT HE ISN'T SURE BY WHOM YET. PATIENT REPORTS THAT HE IS HOPING THAT DOING MORE PT WILL HELP. HE DID SAY THAT THE SHUTTLE LEG PRESS CAUSED INCREASED PAIN. ALSO STATES IT SEEMED LIKE HIS SESSIONS WERE TOO SHORT. Objective/Function: PATIENT HAS MADE SOME PROGRESS TOWARD CURRENT PT GOALS AND IS BECOMING INDEP WITH A HEP. HE HAS INCREASED BERTA KNEE ROM AND INCREASED BERTA LE STRENGTH ALONG WITH INCREASED LUMBAR ROM SINCE LAST RE-CHECK. UPON EXAM, LUMBAR MVMT LOSS IS FOLLOWS: FLEX - MIN, EXT - LEE ANN, BERTA SG - MOD TO LEE ANN. INCREASED KYPHOSIS. BERTA LE STRENGTH IS GROSSLY 4/5 WITH MMT'ING NOW. FULL BERTA KNEE EXT NOW WITH LEFT KNEE FLEX TO 135 DEG AND RIGHT 140 DEG IN SUPINE WITH A HEEL SLIDE. OTHERWISE - THERE ARE NO SIGNIFICANT CHANGES SINCE INITIAL EVAL. PATIENT ABLE TO TOLERATE EX'S TODAY WITH CUEING WITHOUT INCREASED C/O PAIN. Plan Plan: TRIAL OF CONTINUED PT INCREASING TREATMENT TIME X 5 MORE VISITS FOR POSTURE CORRECTION/STRENGTHENING, INSTRUCTION IN APPROPRIATE BODY MECHANICS AND ACTIVITY MODIFICATIONS. DLS WITH A NEUTRAL SPINE. BERTA LE ROM, STRETCHING AND STRENGTHENING. FOCUS ON HEP INSTRUCTION. Goals Goal 1:: Patient will increase BLE strength grossly by 1 muscle grade for improved performance with functional activities Goal Time Frame: 4-6 Weeks Goal Progress: Progressing Goal 2:: Patient will increase core and low back strength grossly 1 muscle grade for improved posture Goal Time Frame: 6-8 Weeks Goal Progress: Not Progressing Goal 3:: Patient will increase bilateral hamstring flexibility by 5* for improved mobility Goal Time Frame: 4-6 Weeks Goal Progress: Progressing Goal 4:: Patient will tolerate therapeutic exercises and activities for 10 minutes without increase in low back or leg pain Goal Time Frame: 4-6 Weeks Goal Progress: Progressing Goal 5:: Patient will increase lumbar range of motion in all planes for improved mobility Goal Time Frame: 4-6 Weeks Goal Progress: Progressing Goal 6:: Patient will demonstrate fair dynamic standing balance to decrease risk of fall Goal Time Frame: 6-8 Weeks Goal Progress: Not Progressing Anticipated Interventions Patient/Client Instruction: Educate patient on: Condition, Plan of Care For the Purpose of:: To decrease pain, To increase ROM, To improve muscle performance and motor function, To improve ability to perform ADL's, To improve ability of physical actions for home/community/work/leisure, To increase flexibility/ROM, To improve endurance, To improve balance, To improve safety with gait Therapeutic Exercise to Include: Strength training, Endurance training, Balance training, Body mechanics, Postural training, Flexibilty training, Gait and locomotor training, Passive ROM, Active ROM, Dynamic Lumbar Stabilization For the Purpose of:: To decrease pain, To increase ROM Functional Training to Include: ADL Training, Gait training For the Purpose of:: To increase ROM, To improve muscle performance and motor function, To improve ability to perform ADL's, To improve ability of physical actions for home/community/work/leisure, To improve gait and locomotor functions For the Purpose of:: To decrease pain, To increase ROM Iontophoresis (with Dexamethozone, with Acetic acid): No For the Purpose of:: To decrease pain, To increase ROM Please do not hesitate to contact me at [phone] by phone or Fax: if you have questions or concerns regarding this new plan of care! Sincerely, Nidia Danielle
--- NOTE | 2018-04-05 12:20 | HP.PT.NRP ---
HP - Discharge Summary (1) - Patient Information PEDRO PABLO SIERRA was seen in my office for initial evaluation on 12/18/17. The following Plan of Care was established for this patient: Initial Frequency: 2x /Week Initial Duration: 4 Weeks - Anticipated Interventions Patient/Client Instruction: Educate patient on: Condition, Plan of Care For the Purpose of:: To decrease pain, To increase ROM, To improve muscle performance and motor function, To improve ability to perform ADL's, To improve ability of physical actions for home/community/work/leisure, To increase flexibility/ROM, To improve endurance, To improve balance, To improve safety with gait Therapeutic Exercise to Include: Strength training, Endurance training, Balance training, Body mechanics, Postural training, Flexibilty training, Gait and locomotor training, Passive ROM, Active ROM, Dynamic Lumbar Stabilization For the Purpose of:: To decrease pain, To increase ROM Functional Training to Include: ADL Training, Gait training For the Purpose of:: To increase ROM, To improve muscle performance and motor function, To improve ability to perform ADL's, To improve ability of physical actions for home/community/work/leisure, To improve gait and locomotor functions For the Purpose of:: To decrease pain, To increase ROM Iontophoresis (with Dexamethozone, with Acetic acid): No For the Purpose of:: To decrease pain, To increase ROM This patient was last seen in our office 02/28/18. Pertinent comments regarding their Physical therapy will appear below: This patient has not returned to Physical Therapy and is appropriate to return to MD for further follow-up as needed. At this point I will be discontinuing this patient from physical therapy. I would be happy to see this patient again in the future if found appropriate by the physician. Thank you! Nidia Danielle
== END 2018-02-28 19:00 | disposition home or self-care (01) ==
LOC: PT 11:30
PROVIDERS: Family Provider Internal Medicine; PCP Internal Medicine; Visit Provider Anesthesiology Pain Medicine
DX: M54.9 Dorsalgia, unspecified (principal); R29.898 Other symptoms and signs involving the musculoskeletal system
CPT/HCPCS: 97035; 97110; 97162; 97164; 97530

== ENCOUNTER 2018-03-07 10:18 | Emergency (ER) | payer MEDICARE, SELFPAY ==
[2018-03-07 10:19] VITALS: BP 160/74; PULSE 58; RESP 19; TEMP 36.8; O2SAT 99; BMI 22.5
[2018-03-07 10:51] LABS: International Normalized Ratio 1.8; Prothrombin Time (Protime)PT. 20.5 SECONDS (11.7-14.9)
--- NOTE | 2018-03-07 11:39 | ED.DCSUM_ITS ---
- ER Visit Summary Date of Service: 03/07/18 Chief Complaint: Left arm skin tear History of Present Illness: The patient is a 67 M who is on Coumadin needs his INR checked states that he stumbled and caught his left arm against the counter last night causing a tear of the skin on the left arm. He notes his tetanus has been within the past 5-10 years. Eyes any other injuries. Physical Examination: Afebrile vital signs are stable There is #2 1 cm skin avulsions that are superficial to the left posterior forearm. There is no active bleeding. Test Results: INR 1.8 Emergency Department Course and Treatment: Wounds were cleansed and dressed with bacitracin. He was advised of his INR. He will double his dose today and contact his primary care physician for retesting. Impression: 1. Left arm skin avulsion 2. Subtherapeutic INR This note was generated with [employer] dictation software. It may contain incorrect words, spelling, and punctuation that were not noted in review of the chart prior to signing ED Disposition - Plan for ED Patient: Disposition: Home or Assisted Living Chief Complaint: Wound Instructions: ED Avulsion Dermal Referrals: Daija Douglas MD [Primary Care Provider] - 2 Days Additional Instructions: Take 7.5 mg of Coumadin when you get home and take your usual dose at your regularly scheduled time. You need to have your INR checked on Monday Good local wound care as directed.
[2018-03-07 11:48] VITALS: PULSE 53; RESP 14; O2SAT 99
== END 2018-03-07 11:49 | disposition home or self-care (01) ==
PROVIDERS: Emergency Provider Emergency Medicine; Family Provider Internal Medicine; PCP Internal Medicine
DX: S51.802A Unspecified open wound of left forearm, initial encounter (principal); J44.9 Chronic obstructive pulmonary disease, unspecified; I73.9 Peripheral vascular disease, unspecified; Z72.0 Tobacco use; Z79.01 Long term (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 of anticoagulants; Z79.51 Long term (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 of inhaled steroids; Z79.82 Long term (current) use of aspirin; Z79.891 Long term (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 of opiate analgesic; Z79.899 Other long term (current) drug therapy; W22.09XA Striking against other stationary object, initial encounter; Y93.01 Activity, walking, marching and hiking; Y92.009 Unspecified place in unspecified non-institutional (private) residence as the place of occurrence of the external cause; Y99.8 Other external cause status
CPT/HCPCS: 85610; 99282

== ENCOUNTER 2018-05-19 19:22 | Emergency (ER) | payer MEDICARE, SELFPAY ==
[2018-05-17 17:22] VITALS: BMI 23.6
[2018-05-19 19:23] VITALS: BP 150/74; PULSE 75; RESP 18; TEMP 36.4; O2SAT 95; BMI 23.1
--- NOTE | 2018-05-19 19:32 | RAD_ITS ---
STUDY: X-RAY - RIGHT HAND REASON FOR EXAM: Male, 67 years old. Fall. Pain. TECHNIQUE: Three view(s) of the hand. COMPARISON: None. FINDINGS: Bones: There is generalized osteopenia. There is a remote healed fracture of the base of fourth metacarpal. Joints: There is osteoarthrosis. Soft tissues: The soft tissues are unremarkable. Foreign body: None RAD/Hand Min 3 Views IMPRESSION: Osteopenia with osteoarthrosis. No acute pathology. Electronically Signed: Uri Lee MD at 20:41 EST , Service support ,
--- NOTE | 2018-05-19 19:59 | ED.DCSUM_ITS ---
- ER Visit Summary Date of Service: 05/19/18 Chief Complaint: Right hand injury History of Present Illness: The patient is a 67 M who had a mechanical fall on his deck this morning trying to catch a dog. Complaining of increasing pain to the right thumb throughout the day. He is right-hand dominant. He denies paresthesias. He denies any other injury from the fall. Physical Examination: Vital signs grossly unremarkable. Patient sitting at the side of bed. He is in no acute distress. Head and neck examination reveals no sign of trauma. Right upper extremity examination reveals moderate tenderness over the thenar eminence of the right hand. He has full range of motion of the thumb. There are no puncture mcadams or abrasions. He has normal cap refill and sensation distally. There is no tenderness at the wrist or elbow. Test Results: Right hand x-rays reveal no evidence of acute fracture. There is an questionable linear metallic foreign body noted to the mid right thumb. This was discussed with the patient. Patient had no puncture wound or injury to this area of the thumb today. This is likely an old finding. Emergency Department Course and Treatment: Patient is placed in a thumb spica splint. He has pain medication from his pain management physician at home that he can take. Treatment Plan: [] Disposition: Discharge Impression: Hand contusion status post mechanical fall This note was generated with [employer] dictation software. It may contain incorrect words, spelling, and punctuation that were not noted in review of the chart prior to signing ED Disposition - Plan for ED Patient: Chief Complaint: Upper Extremity Injury Referrals: Daija Douglas MD [Primary Care Provider] -
--- NOTE | 2018-05-19 20:00 | ED.DEP ---
ED Disposition - Plan for ED Patient: Disposition: Home or Assisted Living Chief Complaint: Upper Extremity Injury Instructions: ED Contusion Hand Referrals: Daija Douglas MD [Primary Care Provider] - Elisha Vizcarra MD [STAFF PHYSICIAN] -
--- OUTSIDE RECORDS SUMMARY | 2018-07-13 21:45 | XMS RPT_ITS ---
:1950 Author Organization [place] Support Name Relationship Address Phone R Unavailable Unavailable Unavailable BASILIO, MICHELLE Unavailable Unavailable + [place] [address] R Unavailable Unavailable Unavailable BASILIO, MICHELLE Unavailable Unavailable + [place] [address] INDRASUSANIE Unavailable Unavailable + RICE GIOVANA Unavailable Unavailable + R Unavailable Unavailable Unavailable BASILIO, MICHELLE Unavailable Unavailable + [place] [address] R Unavailable Unavailable Unavailable BASILIO, MICHELLE Unavailable Unavailable + [place] [address] R Unavailable Unavailable Unavailable BASILIO, MICHELLE Unavailable Unavailable + [place] [address] R Unavailable Unavailable Unavailable BASILIO, MICHELLE Unavailable Unavailable + [place] [address] R Unavailable Unavailable Unavailable BASILIO, MICHELLE Unavailable Unavailable + [place] [address] R Unavailable Unavailable Unavailable BASILIO, MICHELLE Unavailable Unavailable + [place] [address] R Unavailable Unavailable Unavailable BASILIO, MICHELLE Unavailable Unavailable + [place] [address] R Unavailable Unavailable Unavailable R Unavailable Unavailable Unavailable BASILIO, MICHELLE Unavailable Unavailable + [place] [address] R Unavailable Unavailable Unavailable RICE GIOVANA Unavailable . + [place] [address] BASILIO, MICHELLE Unavailable Unavailable + [place] [address] R Unavailable Unavailable Unavailable RICE, GIOVANA Unavailable . + [place] [address] MICHELLE MONTANA Unavailable Unavailable + [place] [address] R Unavailable Unavailable Unavailable RICE GIOVANA Unavailable . + [place] [address] BASILIO MICHELLE Unavailable Unavailable + [place] [address] RICE, GIOVANA Unavailable Unavailable + RICE, GIOVANA Unavailable Unavailable + R Unavailable Unavailable Unavailable RICE, GIOVANA Unavailable . + [place] [address] BASILIO MICHELLE Unavailable Unavailable + [place] [address] R Unavailable Unavailable Unavailable RICE, GIOVANA Unavailable . + [place] [address] BASILIO MICHELLE Unavailable Unavailable + [place] [address] R Unavailable Unavailable Unavailable RICE GIOVANA Unavailable . + [place] [address] TIMBO MONTANARY Unavailable Unavailable + [place] [address] Care Team Providers Name Role Phone CHAMP GUTIERREZ NOAH Del RioFlavio Attending Unavailable HO CRANE Primary Care Unavailable SELENE SCOTT, DR. CARLOS Ferreira Primary Care Unavailable RENATE SCOTT MD. ELTON Wiley Admitting Unavailable RENATE SCOTT MD. ELTON Wiley Attending Unavailable PRUDENCIO SCOTT, DR. SEBASTIAN Consulting Unavailable RENATE SCOTT MD. ELTON Wiley Consulting Unavailable GANTA, CARLOS Referring Unavailable GANTA, CARLOS Referring Unavailable GANTA, CARLOS Referring Unavailable GANTA, CARLOS Referring Unavailable GANTA, CARLOS Attending Unavailable GANTA, CARLOS Referring Unavailable PARK STEVENSON (TENSION WORKER) Attending Unavailable GANTA, CARLOS Referring Unavailable GANTA, CARLOS Referring Unavailable PARK STEVENSON (TENSION WORKER) Referring Unavailable PARK STEVENSON (TENSION WORKER) Attending Unavailable GANTA, CARLOS Referring Unavailable GANTA, CARLOS Referring Unavailable ENOCH PANTOJA (PA) Referring Unavailable GANTA, CARLOS Referring Unavailable GANTA, CARLOS Referring Unavailable MARQUITA BRAGA ([facility]) Attending Unavailable MARQUITA BRAGA (TENSION WORKER) Referring Unavailable PODLOGTIA SNOW ([facility]) Attending Unavailable GANTA, CARLOS Referring Unavailable BECKIE MENSAHA (PT) Attending Unavailable PODLOGAR, TIA (TENSION WORKER) Referring Unavailable MENSAH, ALIE (PT) Attending Unavailable PODLOGAR, TIA (TENSION WORKER) Referring Unavailable MENSAH, ALIE (PT) Attending Unavailable PODLOGAR, TIA (TENSION WORKER) Referring Unavailable GANTA, CARLOS Referring Unavailable MENSAH, ALIE (PT) Attending Unavailable PODLOGAR, TIA (TENSION WORKER) Referring Unavailable MENSAH, ALIE (PT) Attending Unavailable PODLOGAR, TIA (TENSION WORKER) Referring Unavailable MENSAH, ALIE (PT) Attending Unavailable PODLOGAR, TIA (TENSION WORKER) Referring Unavailable MENSAH, ALIE (PT) Attending Unavailable PODLOGAR, TIA (TENSION WORKER) Referring Unavailable MENSAH, ALIE (PT) Attending Unavailable PODLOGAR, TIA ([facility]) Referring Unavailable GRAHAM, PARK ([facility]) Attending Unavailable GANTA, CARLOS Referring Unavailable GRAHAM, PARK ([facility]) Referring Unavailable GRAHAMPARK ([facility]) Referring Unavailable GANTA, CARLOS Referring Unavailable PARK STEVENSON ([facility]) Attending Unavailable PARK STEVENSON ([facility]) Attending Unavailable ADENIKESELMA OTT Attending Unavailable PARK STEVENSON ([facility]) Referring Unavailable GANTA, CARLOS Referring Unavailable ADENIKESELMA OTT Referring Unavailable GANTA, CARLOS Attending Unavailable GANTA, CARLOS Referring Unavailable GANTA, CARLOS Referring Unavailable GANTA, CARLOS Referring Unavailable GANTA, CARLOS Referring Unavailable SMOLOCK, CHRISTOPHER Referring Unavailable SMOLOCK, AGAPITOER Attending Unavailable GANTA, CARLOS Referring Unavailable GANTA, CARLOS Referring Unavailable PARK STEVENSON ([facility]) Attending Unavailable GANTA, CARLOS Referring Unavailable GRAHAMPARK ([facility]) Referring Unavailable GANTA, CARLOS Referring Unavailable GRAHAMPARK ([facility]) Attending Unavailable GANTA, CARLOS Referring Unavailable GANTA, CARLOS Referring Unavailable GANTA, CARLOS Referring Unavailable GANTA, CARLOS Attending Unavailable GANTA, CARLOS Referring Unavailable GANTA, CARLOS Referring Unavailable GANTA, CARLOS Referring Unavailable GANTA, CARLSO Referring Unavailable GRAHAMPARK ([facility]) Attending Unavailable GANTA, CARLOS Referring Unavailable PARK STEVENSON ([facility]) Referring Unavailable GANTA, CARLOS Referring Unavailable GANTA, CARLOS Referring Unavailable BasalElisha pena Attending Unavailable Basali Aykoby Referring Unavailable Ganta, Carlos Primary Care Unavailable Ganta, Carlos Primary Care Unavailable Willie, Perfecto Attending Unavailable Basali, Clayman Attending Unavailable Basali, Ayman Referring Unavailable Ganta, Carlos Primary Care Unavailable Ganta, Carlos Primary Care Unavailable Perfecto Tapia Attending Unavailable Ganta, Carlos Primary Care Unavailable Gonzales Dixon Attending Unavailable Ganta, Carlos Primary Care Unavailable Perfecto Bush Attending Unavailable Ganta, Carlos Primary Care Unavailable Juan Lopez Attending Unavailable Ganta, Carlos Primary Care Unavailable Perfecto Tapia Attending Unavailable Juan Lopez Attending Unavailable Juan Lopez Referring Unavailable Ganta, Carlos Primary Care Unavailable Basali, Ayman Attending Unavailable Basali, Ayman Referring Unavailable Ganta, Carlos Primary Care Unavailable Ganta, Carlos Primary Care Unavailable Ana Solano Attending Unavailable Ganta, Carlos Attending Unavailable Ganta, Carlos Primary Care Unavailable Basali, Ayman Attending Unavailable Basali, Ayman Referring Unavailable Ganta, Carlos Primary Care Unavailable Ganta, Carlos Primary Care Unavailable Perfecto Bush Attending Unavailable Basali, Elisha Attending Unavailable Basali, Ayman Referring Unavailable Ganta, Carlos Primary Care Unavailable Ganta, Carlos Primary Care Unavailable Emilie James Attending Unavailable PROBLEMS PROBLEMS DATE TYPE CONDITION / CODE ATTENDING STATUS SOURCE 05/18/2018 Active Gastrointestinal NA Active [facility] hemorrhage, [facility] unspecified / [place] K92.2(ICD-10) Repository 04/05/2018 Unknown M54.9 - Dorsalgia, Basali, Ayman Active [facility] unspecified / Community M54.9(ICD-10) Hospital Repository 02/21/2018 Active Low back pain / NA Active [facility] M54.5(ICD-10) [facility] [place] Repository 02/21/2018 Active Pain in left leg / NA Active [facility] M79.605(ICD-10) [facility] [place] Repository 01/10/2018 Unknown F11.20 - Opioid Basali, Ayman Active [facility] dependence, Community uncomplicated / Hospital F11.20(ICD-10) Repository 12/21/2017 Unknown G47.33 - Obstructive Ganta, Carlos Active [facility] sleep apnea (adult) Community (pediatric) / Hospital G47.33(ICD-10) Repository 01/08/2018 Unknown M79.604 - Pain in Willie, Perfecto Active [place] right leg / Community M79.604(ICD-10) Hospital Repository 12/04/2017 Active Other headache NA Active [facility] syndrome / [facility] G44.89(ICD-10) [place] Repository 11/17/2017 Active Hemicrania continua / NA Active [facility] G44.51(ICD-10) Clinic [facility] [place] Repository 11/17/2017 Active 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 / [facility] M31.6(ICD-10) [place] Repository 04/27/2015 Active Peripheral vascular NA Active [facility] disease, unspecified / [facility] I73.9(ICD-10) [place] Repository 11/17/2017 Active custodial (current) NA Active [facility] use of anticoagulants Clinic [facility] / Z79.01(ICD-10) [place] Repository 11/17/2017 Active Other [facility] NA Active [facility] (current) drug therapy [facility] / Z79.899(ICD-10) [place] Repository 11/17/2017 Active Labor and delivery NA Active [facility] complicated by other [facility] cord complications, [place] not applicable or Repository unspecified / O69.89X0(ICD-10) 11/17/2017 Active Unspecified NA Active [facility] atherosclerosis / [facility] I70.90(ICD-10) [place] Repository 10/13/2017 Active Encounter for NA Active [facility] screening for [facility] cardiovascular [place] disorders / Repository Z13.6(ICD-10) 07/08/2014 Active Hyperlipidemia, NA Active [facility] unspecified / [facility] E78.5(ICD-10) [place] Repository 10/13/2017 Active Essential (primary) NA Active [facility] hypertension / [facility] I10(ICD-10) [place] Repository 09/27/2017 Active Unspecified injury of Active [facility] left thigh, initial [facility] encounter / [place] S79.922A(ICD-10) Repository 09/27/2017 Active Pain in left thigh / NA Active [facility] M79.652(ICD-10) Clinic [facility] [place] Repository 08/31/2017 Active Fall on same level NA Active [facility] from slipping, [facility] tripping and stumbling [place] without subsequent Repository striking against object, initial encounter / W01.0XXA(ICD-10) 08/31/2017 Active Pain in left knee / NA Active [facility] M25.562(ICD-10) Clinic [facility] [place] Repository 08/31/2017 Active Pain in left hip / NA Active [facility] M25.552(ICD-10) Clinic Main [place] Repository 08/16/2017 Active Pleurodynia / NA Active [facility] R07.81(ICD-10) [facility] Main [place] Repository 07/26/2017 Active Unspecified visual NA Active [facility] disturbance / [facility] H53.9(ICD-10) [place] Repository 07/26/2017 Active Anesthesia of skin / NA Active [facility] R20.0(ICD-10) [facility] Main [place] Repository 07/26/2017 Active Dizziness and NA Active [facility] giddiness / Clinic [facility] R42(ICD-10) [place] Repository 07/26/2017 Active Personal history of NA Active [facility] other diseases of the [facility] Main nervous system and [place] sense organs / Repository Z86.69(ICD-10) 08/25/2017 Unknown R06.02 - Shortness of Willie, Perfecto Active [facility] breath / [facility] R06.02(ICD-10) [facility] Repository 07/10/2017 Active Unknown / UNK(Unknown) NA Active [facility] Repository 07/28/2017 Unknown M25.562 - Pain in left Basali, Ayman Active [place] knee / M25.562(ICD-10) [facility] Repository PROCEDURES PROCEDURES No Procedure Records FoundRESULTS RESULTS PROGRESS Observed: 06/04/2018 Status: COMPLETED Source: [place] 3:34 PM [facility] REPOSITORY HNO ID: [id number] Author: Irlanda Guadalupe RN Service: (none) Author Type: (none) Type: Progress Notes Filed: 06/04/2018 3:35 PM Note Text: per written order by dr montenegro patient is to take 10mg Mon,Fri and 7.5mg all other days PATIENT NOTIFIED OF INFORMATION PROGRESS Observed: 06/04/2018 Status: COMPLETED Source: [place] 2:51 PM [facility] REPOSITORY HNO ID: [id number] Author: Irlanda Guadalupe RN Service: (none) Author Type: (none) Type: Progress Notes Filed: 06/04/2018 2:53 PM Note Text: patient had inr completed at [facility] patients inr is 1.7 (patients inr range is 2.0-3.0) patient is currently taking 10mg Fri and 7.5mg all other days patients last dose change was on 05/18/18 due to a low level of 1.6 (dose at that time was 10mg Mon and 7.5mg all other days) patient has had no changes in medication and no missed doses and no change in diet Advised patient that they would be contacted regarding medication dose and when to follow up after information is reviewed by provider. After provider review please contact the patient with information and schedule follow up appointment with coumadin clinic. FYI - patient has been scheduled for a 2 week follow up inr on 06/21/18 (appt with pcp also this day) CBC Collected: 05/23/2018 Status: F Source: [place] 9:41 AM [facility] REPOSITORY TYPE CODE TESTS RESULT OUT OF REFERENCE UNITS RANGE LAB WBC 3.70-11.00 k/uL WBC 6.54 LAB RBC 4.20-6.00 m/uL RBC 4.37 LAB HGB 13.0-17.0 g/dL Low Hemoglobin 12.4 LAB HCT 39.0-51.0 % Hematocrit 40.2 LAB MCV 80.0-100.0 fL MCV 92.0 LAB MCH 26.0-34.0 pG MCH 28.4 LAB MCHC 30.5-36.0 g/dL MCHC 30.8 LAB RDWCV 11.5-15.0 % RDW-CV High 17.1 LAB PLTCT 150-400 k/uL Platelet Count 333 LAB MPV 9.0-12.7 fL MPV 10.6 LAB ABSNUC <0.01 k/uL Absolute nRBC <0.01 Performed By: #### CBC #### [facility] [address] [place], [place] [address] SPINE LUMBAR Observed: 05/23/2018 Status: F Source: [place] (ROUTINE) 7:47 AM [facility] REPOSITORY [facility] Imaging Services [address] [place] [address] Spine Lumbar (Routine) MR#: [id number] Acct: [id number] Name: MILES SIERRA Shannan Rep #: [id number] : 1950 M 67 From: Neil Murry MD PCP: Carlos Morton MD Status: REG CLI Study: Spine Lumbar (Routine) Date of Exam: 05/23/18 Exam# [id number] Ordering Dr: Elisha Flowers MD STUDY: MRI LUMBAR SPINE WITHOUT CONTRAST REASON FOR EXAM: Male, 67 years old. Low back pain and bilateral leg weakness TECHNIQUE: Standardized fat and water weighted pulse sequences were obtained in the sagittal and axial planes. COMPARISON: 03/23/2016, report only CT abdomen 02/06/2016 FINDINGS: T12-L1: Normal endplates. Normal disc height, hydration and morphology. Normal bilateral facet joints. Normal central canal and bilateral lateral recesses. Normal bilateral intervertebral neural foramina. Normal lumbar lordosis. There is no substantial scoliosis. Normal conus medullaris that terminates at the L1 level. Schmorl's node in the superior endplate of L3. L1-2: Normal endplates. Normal disc height, hydration and morphology. Normal bilateral facet joints. Normal central canal and bilateral lateral recesses. Normal bilateral intervertebral neural foramina. L2-3: Bulging annulus with mild central canal stenosis. L3-4: Bulging annulus with moderate bilateral foraminal stenoses. L4-5: Bulging annulus and central annular fissure with moderate right and mild left foraminal stenoses. L5-S1: Bulging annulus with mild bilateral foraminal stenoses. Normal visualized sacral ala. Normal visualized paraspinous soft tissue structures. A left adrenal mass cannot be excluded, incompletely imaged. This has previously been described as an adenoma. MRI/Spine Lumbar (Routine) IMPRESSION: Multilevel degenerative disease as described. Moderate foraminal stenoses are present bilaterally at L3-4 and on the right at L4-5. Electronically Signed: Neil Murry MD at 9:56 EST Tel , Service support , CC: Elisha Flowers MD; Carlos Morton MD Bottle Gauger: Signed PROGRESS Observed: 05/22/2018 Status: COMPLETED Source: [place] 4:18 PM [facility] REPOSITORY HNO ID: [id number] Author: Karin Isaacs LPN Service: (none) Author Type: (none) Type: Progress Notes Filed: 05/22/2018 4:18 PM Note Text: Patient notified of additional labs , he will come to lab tomorrow. PROGRESS Observed: 05/22/2018 Status: COMPLETED Source: [place] 1:29 PM [facility] REPOSITORY HNO ID: [id number] Author: Carlos Morton Service: (none) Author Type: Physician Type: Progress Notes Filed: 05/22/2018 4:18 PM Note Text: Please let him know that I am ordering a cbc for him to check his hb levels, Recent cbc 4 days ago was normal PROGRESS Observed: 05/21/2018 Status: COMPLETED Source: [place] 5:02 PM [facility] REPOSITORY HNO ID: [id number] Author: Debby Saldana LPN Service: (none) Author Type: (none) Type: Progress Notes Filed: 05/22/2018 4:18 PM Note Text: Phoned patient and went over coumadin instructions 10 mg Monday and 7.5 mg other days and recheck INR in few weeks with understanding. Patient has appt scheduled on 06/04/2018. Patient said having black stools, sticky tar, having problems having bowel movements, still very hard at first. Has been taking stool softener, miralax. PROGRESS Observed: 05/21/2018 Status: COMPLETED Source: [place] 4:56 PM [facility] REPOSITORY HNO ID: [id number] Author: Carlos Morton Service: (none) Author Type: Physician Type: Progress Notes Filed: 05/22/2018 4:18 PM Note Text: Please ask patient to cont the same as I doubt compliance during the past couple weeks, with diet and medication Recheck in a couple weeks. PROGRESS Observed: 05/21/2018 Status: COMPLETED Source: [place] 2:39 PM [facility] REPOSITORY HNO ID: [id number] Author: Irlanda Guadalupe RN Service: (none) Author Type: (none) Type: Progress Notes Filed: 05/21/2018 2:41 PM Note Text: patient had inr completed at [facility] patients inr is 1.2 (patients inr range is 2.0-3.0) patient is currently taking 10mg Mon and 7.5mg all other days patients last dose change was on 05/18/18 due to a low level of 1.6 (dose at that time was 10mg Mon and 7.5mg all other days) patient has had no changes in medication except for coumadin and no missed doses and no change in diet Advised patient that they would be contacted regarding medication dose and when to follow up after information is reviewed by provider. After provider review please contact the patient with information and schedule follow up appointment with coumadin clinic. FYI - patient has been scheduled for a 2 week follow up inr on 06/04/18 EMERGENCY DEPARTMENT Observed: 05/20/2018 Status: F Source: [place] SUMMARY 12:34 AM [facility] REPOSITORY [facility] Medical Records Department [address] [place] [address] Emergency Department Summary 05/19/181957 MR#: [id number] Acct: [id number] Name: MILES SIERRA Rep #: [id number] : 1950 67 From: Emilie James MD PCP: Carlos Morton MD Status: DEP ER - ER Visit Summary Date of Service: 05/19/18 Chief Complaint: Right hand injury History of Present Illness: The patient is a 67 M who had a mechanical fall on his deck this morning trying to catch a dog. Complaining of increasing pain to the right thumb throughout the day. He is right-hand dominant. He denies paresthesias. He denies any other injury from the fall. Physical Examination: Vital signs grossly unremarkable. Patient sitting at the side of bed. He is in no acute distress. Head and neck examination reveals no sign of trauma. Right upper extremity examination reveals moderate tenderness over the thenar eminence of the right hand. He has full range of motion of the thumb. There are no puncture mcadams or abrasions. He has normal cap refill and sensation distally. There is no tenderness at the wrist or elbow. Test Results: Right hand x-rays reveal no evidence of acute fracture. There is an questionable linear metallic foreign body noted to the mid right thumb. This was discussed with the patient. Patient had no puncture wound or injury to this area of the thumb today. This is likely an old finding. Emergency Department Course and Treatment: Patient is placed in a thumb spica splint. He has pain medication from his pain management physician at home that he can take. Treatment Plan: [] Disposition: Discharge Impression: Hand contusion status post mechanical fall This note was generated with [employer]Go[employer] software. It may contain incorrect words, spelling, and punctuation that were not noted in review of the chart prior to signing ED Disposition - Plan for ED Patient: Chief Complaint: Upper Extremity Injury Referrals: Carlos Morton MD [Primary Care Provider] - What to do if you have Problems For any increased pain, shortness of breath, bleeding, nausea or vomiting, chest pain, or any unexpected problems, contact your Primary Care Provider. Call [facility] ([phone]) or report to the closest Emergency Room. Call 911 if necessary. 05/20/18 0034 <Electronically signed by Emilie James MD> Date Emilie James MD Cosigner Signature (If Indicated): Date CC: Carlos Morton MD DISCHARGE INSTRUCTION Observed: 05/19/2018 Status: F Source: [place] 8:00 PM [facility] REPOSITORY [facility] Medical Records Department [address] [place] [address] Discharge Instruction 05/19/181999 MR#: [id number] Acct: [id number] Name: MILES SIERRA Rep #: [id number] : 1950 67 From: Emilie James MD PCP: Carlos Morton MD Status: REG ER ED Disposition - Plan for ED Patient: Disposition: Home or Assisted Living Chief Complaint: Upper Extremity Injury Instructions: ED Contusion Hand Referrals: Carlos Morton MD [Primary Care Provider] - Elisha Flowers MD [STAFF PHYSICIAN] - What to do if you have Problems For any increased pain, shortness of breath, bleeding, nausea or vomiting, chest pain, or any unexpected problems, contact your Primary Care Provider. Call [facility] ([phone]) or report to the closest Emergency Room. Call 911 if necessary. 05/19/181999 <Electronically signed by Emilie James MD> Date Emilie James MD Cosigner Signature (If Indicated): Date CC: Carlos Morton MD HAND MIN 3 VIEWS Observed: 05/19/2018 Status: F Source: [place] 7:33 PM [facility] REPOSITORY [facility] Imaging Services [address] [place] [address] Hand Min 3 Views MR#: [id number] Acct: [id number] Name: MILES SIERRA Rep #: [id number] : 1950 67 From: Uri Lee MD PCP: Carlos Morton MD Status: DEP ER Study: Hand Min 3 Views Date of Exam: 05/19/18 Exam# [id number] Ordering Dr: Emilie James MD STUDY: X-RAY - RIGHT HAND REASON FOR EXAM: Male, 67 years old. Fall. Pain. TECHNIQUE: Three view(s) of the hand. COMPARISON: None. FINDINGS: Bones: There is generalized osteopenia. There is a remote healed fracture of the base of fourth metacarpal. Joints: There is osteoarthrosis. Soft tissues: The soft tissues are unremarkable. Foreign body: None RAD/Hand Min 3 Views IMPRESSION: Osteopenia with osteoarthrosis. No acute pathology. Electronically Signed: Uri Lee MD at 20:41 EST , Service support , CC: Carlos Morton MD; Emilie James MD Bottle Gauger: Signed PROGRESS Observed: 05/18/2018 Status: COMPLETED Source: [place] 11:19 AM [facility] REPOSITORY HNO ID: [id number] Author: Park Stevenson Service: (none) Author Type: Nurse Practitioner Type: Progress Notes Filed: 05/18/2018 4:05 PM Note Text: Reviewed instructions with patient during visit today. Instructed to take 10mg on Fridays and 7.5mg all other days. Recheck INR in 3 days. Park Stevenson APRN.[facility] CBC Collected: 05/18/2018 Status: F Source: [place] 10:15 AM [facility] REPOSITORY TYPE CODE TESTS RESULT OUT OF REFERENCE UNITS RANGE LAB WWBC 3.70-11.00 k/uL [place] WBC 7.54 LAB WRBC 4.20-6.00 m/uL [facility] RBC 4.51 LAB WHGB 13.0-17.0 g/dL Low [place] Hemoglobin 12.7 LAB WHCT 39.0-51.0 % [facility] Hematocrit 40.5 LAB WMCV 80.0-100.0 fL [facility] MCV 89.8 LAB WMCH 26.0-34.0 pg [place] MCH 28.2 LAB WMCHC 30.5-36.0 g/dL [facility] MCHC 31.4 LAB WRDW 11.5-15.0 % [place] High RDW 16.5 LAB WPLT 150-400 k/uL [facility] Platelet Cnt 314 LAB WMPV 9.0-12.7 fL [facility] MPV 10.3 Result Comment: Test performed at: [address] [place] [address]. HEMOGLOBIN A1C Collected: 05/18/2018 Status: F Source: [place] 10:12 AM [facility] REPOSITORY TYPE CODE TESTS RESULT OUT OF REFERENCE UNITS RANGE LAB HGBA1C 4.3-5.6 % High Hemoglobin A1c 6.0 Result Comment: [place] [employer] guidelines indicate that patients with HgbA1c in the range 5.7-6.4% are at increased risk for development of diabetes, and intervention by lifestyle modification may be beneficial. HgbA1c greater or equal to 6.5% is considered diagnostic of diabetes. LAB HBA0 mg/dL Est. Average Glucose 126 Result Comment: eAG: (Estimated average glucose) is a calculated value from HgbA1c and is desk representative of the average blood glucose level in the last 2-3 month period. Performed By: #### HBA1C #### [facility] [address] [place], [place] [address] PROGRESS Observed: 05/18/2018 Status: COMPLETED Source: [place] 9:45 AM [facility] REPOSITORY HNO ID: [id number] Author: Irlanda Guadalupe RN Service: (none) Author Type: (none) Type: Progress Notes Filed: 05/18/2018 9:46 AM Note Text: patient had inr completed at [facility] patients inr is 1.6 (patients inr range is 2.0-3.0) patient is currently taking 10mg Mon and 7.5mg all other days patients last dose change was on 04/13/18 due to a low level of 1.2 (dose at that time was 7.5mg daily) patient has had no changes in medication and did have missed doses due to being in the hospital and no change in diet patient has follow up appt with EVELIN Stevenson today and has been instructed to discuss results and follow up at appt. PROGRESS Observed: 05/18/2018 Status: COMPLETED Source: [place] 8:44 AM [facility] REPOSITORY HNO ID: [id number] Author: Park Stevenson Service: (none) Author Type: Nurse Practitioner Type: Progress Notes Filed: 05/18/2018 10:11 AM Note Text: CC/HPI Provider Documentation: In follow-up of hospitalization, Miles Sierra is a 67 year old male with the chief complaint of bright red rectal bleeding x1 day with evaluation at [facility] and admission 05/14-05/15/18. Patient reported bright red bleeding from rectum with 4-6 episodes in a 24 hour period. Patient with noted hx of hemorrhoids and similar episodes in the past year. He is on blood thinners for recurrent DVT/PE and NSAIDs. Also c/o constipation x5 days. Nothing tried for relief. Evaluation in the ER revealed stable H/H at 13.1/40.7 and patient was asymptomatic. He was started on a stool softener d/t constipation and chronic opioid use. NSAIDs and anticoagulants held. BP was also noted to be elevated 190s-180s upon arrival- treated with patient's routine HTN medications with improvement during hospital course. Patient was admitted for observation. H/H remained stable with resolved bleeding. Patient was discharged home on Miralax, Iron supplement decreased from TID to once daily and coumadin was resumed. Patient instructed to follow up with PCP. Today patient presents with complaints of abdominal discomfort and continued rectal bleeding. Patient reports having small, hard black stool this AM and blood with wiping. Some nausea this morning, no vomiting. Associated symptoms include rectal pain/pressure. Denies fever, chills, vomiting or other abnormal bleeding. Patient wants noted having MRI completed 05/23 per . Patient also complained that prepackaged medications from [facility] where not correct and that he is missing medications. Brought list form [facility] home list from several years ago. INR completed prior to appointment. INR 1.6 today. I have reviewed the patient?s last hospital course including diagnostic testing performed during this hospitalization, their discharge medications, and my assessment and plan with the patient and any family members present at today?s visit. PAST MEDICAL HISTORY: Reviewed and updated ALLERGIES: Reviewed and updated MEDICATIONS: Reviewed and updated SOCIAL HISTORY: Reviewed and updated FAMILY HISTORY: Reviewed and updated REVIEW OF SYSTEMS GENERAL: Fatigue, Negative for significant weight loss, fever RESPIRATORY: cough, wheezing, SOB CARDIOVASCULAR: Negative for chest pain, leg swelling or palpitations GI: Constipation, Negative for heart burn, vomiting and Positive for abdominal discomfort , constipation , nausea , rectal pain : No history of dysuria, frequency or incontinence HEMATOLOGY/LYMPHOLOGY: Negative for prolonged bleeding and swollen nodes, Positive for bruises easily on anticoagulants. All other systems reviewed and negative, other than HPI. PHYSICAL EXAMINATION BP 128/72 Pulse 65 Temp (Src) 98.6 (Temporal Artery) Resp 16 Wt 157 lb (71.2kg) SpO2 95% General appearance: well appearing, alert, in no acute distress and well-hydrated, well nourished, motor and sensory appear to be normal Lungs: clear, diminished, to auscultation no wheezing or rhonchi, +moist non-productive cough Heart: RRR without murmur, gallop, or rubs. No ectopy Abdomen: Abdomen soft, mildly distending with generalized tenderness. Bowel sounds normal. No masses, organomegaly, Extremities: Extremities normal. No deformities, edema, or skin discoloration. Scattered bruising and noted abrasion to left forearm. 1. I have reviewed the patient record including associated test results during the last hospitalization Yes 2. I have reviewed Lab test Yes 3. I have reviewed Radiology test Yes 4. I reviewed assessment/plan with the patient/family member Yes ASSESSMENT/PLAN: 1. Lower GI bleed - ICD9: 578.9, ICD10: K92.2 (primary diagnosis) - No acute or concerning exam findings. Asymptomatic, vitals stable, will obtain STAT CBC today. If H/H remains stable feel patient is okay to wait until 06/06 for GI follow up - DION CBC - Follow up with GI as scheduled, 06/06 - Stop NSAIDs - Coumadin resumed with caution 2. Hospital discharge follow-up - ICD9: V67.59, ICD10: Z09 - Plan as above, see #1 3. Anticoagulation goal of INR 2 to 3 - ICD9: V58.83, V58.61, ICD10: Z51.81, Z79.01 - subtherapeutic at 1.6 today - Change coumadin schedule to 10mg on Fridays, 7.5mg all other days - Recheck INR in 3 days 4. Drug-induced constipation - ICD9: 564.09, E980.5, ICD10: K59.03 - Continue Senna-s as prescribed in hospital - Increase Miralax to twice daily until BMs are normal, then decrease to once daily - Should continue the above regimen given chronic opioid use 5. Encounter for medication management - ICD9: V58.69, ICD10: Z79.899 - Significant time spent reconciling medication list, reviewing medications as well as their indications with patient - Updated prescriptions sent to [facility] to reflect updated medications 6. Need for vaccination - ICD9: V05.9, ICD10: Z23 - PNEUMOCOCCAL IMMUNIZATION PPSV 23 Park Stevenson APRN.ACE May 18, 2018 8:44 AM CNJOSE ALBERTO Observed: 05/18/2018 Status: COMPLETED Source: [place] 8:40 AM [facility] REPOSITORY Office Visit (INTMWS) MILES SIERRA ([id number]) 1950 M Date Time Provider Department 05/18/18 8:40 AM [facility] ST[facility] (ACE) INTMWS During your visit today, we recorded the following information about you: Temperature Pulse Respiration Blood pressure 98.6 degrees 65/minute 16/minute 128/72 Weight 71.2 kg Park Stevenson APRN.CNP 05/18/2018 10:11 AM Signed CC/HPI Provider Documentation: In follow-up of hospitalization, Miles Sierra is a 67 year old male with the chief complaint of bright red rectal bleeding x1 day with evaluation at [facility] and admission 05/14-05/15/18. Patient reported bright red bleeding from rectum with 4-6 episodes in a 24 hour period. Patient with noted hx of hemorrhoids and similar episodes in the past year. He is on blood thinners for recurrent DVT/PE and NSAIDs. Also c/o constipation x5 days. Nothing tried for relief. Evaluation in the ER revealed stable H/H at 13.1/40.7 and patient was asymptomatic. He was started on a stool softener d/t constipation and chronic opioid use. NSAIDs and anticoagulants held. BP was also noted to be elevated 190s-180s upon arrival- treated with patient's routine HTN medications with improvement during hospital course. Patient was admitted for observation. H/H remained stable with resolved bleeding. Patient was discharged home on Miralax, Iron supplement decreased from TID to once daily and coumadin was resumed. Patient instructed to follow up with PCP. Today patient presents with complaints of abdominal discomfort and continued rectal bleeding. Patient reports having small, hard black stool this AM and blood with wiping. Some nausea this morning, no vomiting. Associated symptoms include rectal pain/pressure. Denies fever, chills, vomiting or other abnormal bleeding. Patient wants noted having MRI completed 05/23 per . Patient also complained that prepackaged medications from [facility] where not correct and that he is missing medications. Brought list form [facility] home list from several years ago. INR completed prior to appointment. INR 1.6 today. I have reviewed the patient?s last hospital course including diagnostic testing performed during this hospitalization, their discharge medications, and my assessment and plan with the patient and any family members present at today?s visit. PAST MEDICAL HISTORY: Reviewed and updated ALLERGIES: Reviewed and updated MEDICATIONS: Reviewed and updated SOCIAL HISTORY: Reviewed and updated FAMILY HISTORY: Reviewed and updated REVIEW OF SYSTEMS GENERAL: Fatigue, Negative for significant weight loss, fever RESPIRATORY: cough, wheezing, SOB CARDIOVASCULAR: Negative for chest pain, leg swelling or palpitations GI: Constipation, Negative for heart burn, vomiting and Positive for abdominal discomfort , constipation , nausea , rectal pain : No history of dysuria, frequency or incontinence HEMATOLOGY/LYMPHOLOGY: Negative for prolonged bleeding and swollen nodes, Positive for bruises easily on anticoagulants. All other systems reviewed and negative, other than HPI. PHYSICAL EXAMINATION BP 128/72 Pulse 65 Temp (Src) 98.6 (Temporal Artery) Resp 16 Wt 157 lb (71.2kg) SpO2 95% General appearance: well appearing, alert, in no acute distress and well-hydrated, well nourished, motor and sensory appear to be normal Lungs: clear, diminished, to auscultation no wheezing or rhonchi, +moist non-productive cough Heart: RRR without murmur, gallop, or rubs. No ectopy Abdomen: Abdomen soft, mildly distending with generalized tenderness. Bowel sounds normal. No masses, organomegaly, Extremities: Extremities normal. No deformities, edema, or skin discoloration. Scattered bruising and noted abrasion to left forearm. 1. I have reviewed the patient record including associated test results during the last hospitalization Yes 2. I have reviewed Lab test Yes 3. I have reviewed Radiology test Yes 4. I reviewed assessment/plan with the patient/family member Yes ASSESSMENT/PLAN: 1. Lower GI bleed - ICD9: 578.9, ICD10: K92.2 (primary diagnosis) - No acute or concerning exam findings. Asymptomatic, vitals stable, will obtain STAT CBC today. If H/H remains stable feel patient is okay to wait until 06/06 for GI follow up - DION CBC - Follow up with GI as scheduled, 06/06 - Stop NSAIDs - Coumadin resumed with caution 2. Hospital discharge follow-up - ICD9: V67.59, ICD10: Z09 - Plan as above, see #1 3. Anticoagulation goal of INR 2 to 3 - ICD9: V58.83, V58.61, ICD10: Z51.81, Z79.01 - subtherapeutic at 1.6 today - Change coumadin schedule to 10mg on Fridays, 7.5mg all other days - Recheck INR in 3 days 4. Drug-induced constipation - ICD9: 564.09, E980.5, ICD10: K59.03 - Continue Senna-s as prescribed in hospital - Increase Miralax to twice daily until BMs are normal, then decrease to once daily - Should continue the above regimen given chronic opioid use 5. Encounter for medication management - ICD9: V58.69, ICD10: Z79.899 - Significant time spent reconciling medication list, reviewing medications as well as their indications with patient - Updated prescriptions sent to [facility] to reflect updated medications 6. Need for vaccination - ICD9: V05.9, ICD10: Z23 - PNEUMOCOCCAL IMMUNIZATION PPSV 23 Park Stevenson APRN.TENSION WORKER May 18, 2018 8:44 AM Park Stevenson APRN.TENSION WORKER 05/18/2018 9:48 AM Signed Okay to take Miralax twice daily until BMs are regular then decrease to once daily. Referring Provider: SELF [200] Allergies As of Date: 05/18/2018 (No Known Allergies) Date Reviewed: 05/18/2018 Reviewed by: Berta Zazueta Ma - Fully Assessed Reason for Visit: Recheck [92] Cmt: ER follow up, Rectal bleeding Primary Visit Diagnosis:Lower GI bleed [K92.2] Other Visit Diagnoses:Hospital discharge follow-up [Z09] Anticoagulation goal of INR 2 to 3 [Z51.81, Z79.01] Drug-induced constipation [K59.03] Encounter for medication management [Z79.899] Need for vaccination [Z23] Order(s):INR (POC) [[id number]] Order #: [id number] #:[id number] [id number] [SQWCBC] Order #: [id number] FUTURE PNEUMOCOCCAL IMMUNIZATION PPSV 23 [[id number]] Order #: [id number] dicyclomine (BENTYL) 20 mg tabletTake 1 tablet by mouth three times daily with meals.Disp: 90 tabletRfl: 3 ferrous sulfate 325 mg (65 mg iron) tabletTake 1 tablet by mouth daily with breakfast.Disp: 30 tabletRfl: 5 metoprolol tartrate, short acting, (LOPRESSOR) 25 mg tabletTake 1 tablet by mouth twice daily.Disp: 56 tabletRfl: 11 Prescriptions as of 05/18/2018 Sig: DICYCLOMINE 20 MG TABLET Take 1 tablet by mouth three * FERROUS SULFATE 325 MG (65 MG* Take 1 tablet by mouth daily * METOPROLOL TARTRATE 25 MG TAB* Take 1 tablet by mouth twice * CARBAMAZEPINE ER 200 MG TABLE* TAKE 1 TABLET BY MOUTH TWICE * ATORVASTATIN 40 MG TABLET TAKE 1 TABLET BY MOUTH DAILY GABAPENTIN 300 MG CAPSULE Take 1 capsule by mouth twice* HYDROXYZINE HCL 50 MG TABLET Take 1 tablet by mouth three * FINASTERIDE 5 MG TABLET Take 1 tablet by mouth once d* PANTOPRAZOLE 40 MG TABLET,DEL* Take 1 tablet by mouth once d* MIRTAZAPINE 15 MG TABLET Take 1 tablet by mouth daily * SERTRALINE 100 MG TABLET TAKE 1 TABLET BY MOUTH DAILY TAMSULOSIN 0.4 MG CAPSULE TAKE 1 CAPSULE BY MOUTH DAILY SENNOSIDES 8.6 MG TABLET Take 1 tablet by mouth daily * COMPOUNDED PRESCRIPTION 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 Hypertension [I10] More... Hyperlipidemia [E78.5] INVALID FOR* More... CAD (coronary artery disease) [I25.10] INVALID FOR* More... COPD (chronic obstructive pulmonary disease) (H* More... Tobacco use disorder [F17.200] More... Anxiety and depression [F41.9, F32.9] More... Blindness of right eye [H54.40] Bilateral shoulder pain [M25.511, M25.512] INVALID FOR* Neck pain [M54.2] INVALID FOR* Chronic low back pain [M54.5, G89.29] INVALID FOR* Vertebral compression fracture [M48.50XA] INVALID FOR* Lumbar spondylosis [M47.816] INVALID FOR* Lumbar radiculopathy [M54.16] INVALID FOR* Rectal bleeding [K62.5] 11/13/2013 Ischemia of extremity [I99.8] INVALID FOR*02/10/2014 More... Urinary retention [R33.9] INVALID FOR* More... DISPOSITION AND FOLLOW-UP [V999.01] INVALID FOR* More... Erythema of groin [L53.9] INVALID FOR*02/10/2014 More... SUMMARY [V999.95] INVALID FOR* More... Pain, postoperative, acute [G89.18] INVALID FOR*02/10/2014 More... Thrombosis [I82.90] INVALID FOR*02/10/2014 More... Anticoagulation goal of INR 2 to 3 [Z51.81, Z79*INVALID FOR* More... Melena [K92.1] INVALID FOR* More... IBD (inflammatory bowel disease) [K52.9] INVALID FOR* More... Abdominal pain, other specified site [R10.9] INVALID FOR* More... Anxiety [F41.9] INVALID FOR* More... Urinary retention with incomplete bladder empty*INVALID FOR* More... Hyponatremia [E87.1] INVALID FOR* More... GI bleeding [D62] INVALID FOR* More... Anemia due to acute blood loss [D62] INVALID FOR* More... s/p left femoral endarterectomy/aortoiliac sten*INVALID FOR* More... PVD (peripheral vascular disease) (HCC) [I73.9] INVALID FOR* More... Lupus anticoagulant disorder (HCC) [D68.62] INVALID FOR* More... Ulcerative colitis (HCC) [K51.90] INVALID FOR* More... Smoker [F17.200] INVALID FOR* More... Hematoma, postoperative [QSP6234] INVALID FOR*08/11/2014 More... Lipoma of abdominal wall [D17.1] INVALID FOR* More... Ischaemic rest pain of lower extremity (HCC) [I*INVALID FOR* Illiterate [Z55.0] INVALID FOR* Pain in left shoulder [M25.512] INVALID FOR* More... Acute GI bleeding [K92.2] INVALID FOR* More... Hypotension due to blood loss [I95.89] INVALID FOR* More... Dysuria [R30.0] INVALID FOR* More... Lipoma of back [D17.1] INVALID FOR* Seizure disorder (HCC) [G40.909] INVALID FOR*07/10/2017 Trigeminal neuralgia [G50.0] INVALID FOR* More... 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 Other instructions from your clinician: Okay to take Miralax twice daily until BMs are regular then decrease to once daily. Prescriptions ordered this encounter Disp Refills Start End DICYCLOMINE 20 MG TABLET 90 t* 3 05/18/2018 Route: ORAL Sig: Take 1 tablet by mouth three times daily with meals. FERROUS SULFATE 325 MG (65 MG IRON) * 30 t* 5 05/18/2018 Route: ORAL Sig: Take 1 tablet by mouth daily with breakfast. METOPROLOL TARTRATE 25 MG TABLET 56 t* 11 05/18/2018 Class: Med Update Route: ORAL Sig: Take 1 tablet by mouth twice daily. Medications Discontinued During This Encounter Omeprazole 40 mg capsule 30 c* 2 11/17/2017 05/18/2018 Si po qd while on prednisone Disc: Reason for discontinue is not on file. ondansetron (ZOFRAN) 8 mg tablet 10 t* 0 11/14/2017 05/18/2018 Route: ORAL Sig: Take 0.5 tablets by mouth every 8 hours as needed. Disc: Reason for discontinue is not on file. aspirin, enteric coated (ASPIRIN, EN* 05/18/2018 Class: Historical Med Route: ORAL Sig: Take 81 mg by mouth once daily. Disc: Reason for discontinue is not on file. meloxicam (MOBIC) 7.5 mg tablet 28 t* 0 04/25/2018 05/18/2018 Cmt: Maximum Refills Reached Sig: TAKE 1 TABLET BY MOUTH DAILY FOR PAIN WITH FOOD. Patient not taking: Reported on 05/18/2018 Disc: Reason for discontinue is not on file. divalproex DR (DEPAKOTE) 250 mg EC t* 60 t* 3 07/03/2017 05/18/2018 Route: ORAL Sig: Take 1 tablet by mouth twice daily. Disc: Reason for discontinue is not on file. docusate sodium 100 mg capsule 0 10/30/2013 05/18/2018 Class: OTC Route: ORAL Sig: Take 1 capsule by mouth twice daily. Disc: Reason for discontinue is not on file. metoprolol tartrate, short acting, (* 56 t* 11 03/29/2018 05/18/2018 Cmt: Maximum Refills Reached Sig: TAKE 1 TABLET BY MOUTH TWICE A DAY *TAKE WITH 25MG Disc: Reason for discontinue is not on file. ferrous sulfate 325 mg (65 mg iron) * 11/24/2014 05/18/2018 Class: Historical Med Route: ORAL Sig: Take 325 mg by mouth daily with breakfast. Disc: Reason for discontinue is not on file. metoprolol tartrate, short acting, (* 56 t* 11 03/29/2018 05/18/2018 Cmt: Maximum Refills Reached Sig: TAKE 1 TABLET BY MOUTH TWICE A DAY *TAKE WITH 50MG Disc: Reason for discontinue is not on file. predniSONE (DELTASONE) 20 mg tablet 05/18/2018 Class: Historical Med Route: ORAL Sig: Take 20 mg by mouth once daily. Two tabs daily Disc: Reason for discontinue is not on file. busPIRone (BUSPAR) 10 mg tablet 84 t* 11 03/29/2018 05/18/2018 Cmt: Maximum Refills Reached Route: ORAL Sig: Take 1 tablet by mouth three times daily. Disc: Reason for discontinue is not on file. Encounter Status:Closed by PARK STEVENSON CNP on 05/18/18 CBC Collected: 05/15/2018 Status: F Source: [facility] 5:30 AM [facility] REPOSIT[facility] TYPE CODE TESTS RESULT OUT OF REFERENCE UNITS RANGE LAB WBC(LOINC) 4.60-10.80 10 3/mcL WBC 5.90 LAB RBCCT(LOINC 4.04-6.13 10 6/mcL ) RBC 4.37 LAB HGB(LOINC) 14.0-18.0 G/dL Low Hgb 12.2 LAB HCT(LOINC) 42.0-52.0 % Low Hct 37.6 LAB MCV(LOINC) 80.0-94.0 fL MCV 86.0 LAB MCH(LOINC) 27.0-31.2 pg MCH 27.9 LAB MCHC(LOINC) 31.8-35.4 G/dL MCHC 32.5 LAB RDW(LOINC) 11.5-14.5 % High RDW 16.7 LAB PLT(LOINC) 130-400 10 3/mcL Platelet 291 LAB MPV(LOINC) 7.4-10.4 fL MPV 8.3 Performed By: #### ANEU, CBC, ADIFF #### [address] [address] .AUTO DIFF Collected: 05/15/2018 Status: F Source: [facility] 5:30 AM [facility] REPOSITORY TYPE CODE TESTS RESULT OUT OF REFERENCE UNITS RANGE LAB AISHWARYA(LOINC) 37.0-80.0 % Neutrophil % 59.7 LAB LYM(LOINC) 10.0-50.0 % Lymphocyte % 28.5 LAB MON(LOINC) 1.7-13.0 % Monocyte % 7.6 LAB EO(LOINC) 0.0-7.0 % Eosinophil % 3.0 LAB BAS(LOINC) 0.0-2.5 % Basophil % 1.2 LAB ABLYM(LOIN 0.77-3.85 10 3/mcL C) Lymphocyte, 1.70 Absolute LAB RONALD(LOINC 0.15-1.00 10 3/mcL ) Monocyte, 0.40 Absolute LAB AEOS(LOINC 0.00-0.40 10 3/mcL ) Eosinophil, 0.20 Absolute LAB ABAS(LOINC 0.00-0.19 10 3/mcL ) Basophil, 0.10 Absolute Performed By: #### ANEU, CBC, ADIFF #### [address] [place], [place] [address] .NEUABS Collected: 05/15/2018 Status: F Source: [facility] 5:30 AM [facility] REPOSITORY TYPE CODE TESTS RESULT OUT OF REFERENCE UNITS RANGE LAB ANEU(LOINC) 2.85-6.16 10 3/mcL Neutrophil, 3.50 Absolute Performed By: #### ANEU, CBC, ADIFF #### [address] [address] HH Collected: 05/14/2018 Status: F Source: [facility] 11:19 PM [facility] REPOSITORY TYPE CODE TESTS RESULT OUT OF RANGE REFERENCE UNITS LAB HGB(LOINC) 14.0-18.0 G/dL Low Hgb 12.3 LAB HCT(LOINC) 42.0-52.0 % Low Hct 38.1 Performed By: #### HH #### [address] [address] PRO Collected: 05/14/2018 Status: F Source: [facility] 5:37 PM [facility] REPOSITORY TYPE CODE TESTS RESULT OUT OF REFERENCE UNITS RANGE LAB PT(LOINC) 9.3-14.6 seconds Protime High 27.6 LAB INR(LOINC) 0.9-1.2 ratio PT High International 2.8 Ratio Result Comment: Standard Dose 2.0 - 3.0 High Dose 2.5 - 3.5 The recommended therapeutic range for oral anticoagulant therapy is: LOW RISK: Prophylaxis of venous thrombosis INR: 2.0 - 3.0 Treatment of pulmonary embolism 2.0 - 3.0 Prevention of systemic embolism 2.0 - 3.0 HIGH RISK: Mechanical prosthetic valves 2.5 - 3.5 Performed By: #### PRO, APTT #### [address] [address] APTT Collected: 05/14/2018 Status: F Source: [facility] 5:37 PM [facility] REPOSITORY TYPE CODE TESTS RESULT OUT OF REFERENCE UNITS RANGE LAB PDOSE(LOIN C) Heparin dose Coumadin PO (APTT) LAB APTT0(LOIN 24.4-35.6 seconds C) High APTT 37.8 Result Comment: For Heparin anticoagulation therapy, the recommended therapeutic range is: 47.7-87.7 seconds (1.5 - 2.5 the normal plasma mean). Patients on heparin therapy may have an extreme result. Performed By: #### PRO, APTT #### [address] [address] ABO/RH RETYPE GEL Collected: 05/14/2018 Status: F Source: [facility] 5:17 PM [facility] REPOSITORY Order Comment: Ordered by Discern TYPE CODE TESTS RESULT OUT OF RANGE REFERENCE UNITS LAB CD:[id number](LOINC) Unknown ABO/Rh O POS Retype Gel Performed By: #### ABORG #### [address] [address] CBC Collected: 05/14/2018 Status: F Source: [facility] 4:13 PM [facility] REPOSITORY TYPE CODE TESTS RESULT OUT OF REFERENCE UNITS RANGE LAB WBC(LOINC) 4.60-10.80 10 3/mcL WBC 6.60 LAB RBCCT(LOINC 4.04-6.13 10 6/mcL ) RBC 4.73 LAB HGB(LOINC) 14.0-18.0 G/dL Low Hgb 13.1 LAB HCT(LOINC) 42.0-52.0 % Low Hct 40.7 LAB MCV(LOINC) 80.0-94.0 fL MCV 86.1 LAB MCH(LOINC) 27.0-31.2 pg MCH 27.7 LAB MCHC(LOINC) 31.8-35.4 G/dL MCHC 32.2 LAB RDW(LOINC) 11.5-14.5 % High RDW 16.8 LAB PLT(LOINC) 130-400 10 3/mcL Platelet 299 LAB MPV(LOINC) 7.4-10.4 fL MPV 7.8 Performed By: #### CBC, ANEU, ADIFF #### [address] [address] #### CMP, GFR #### [address] [address] .AUTO DIFF Collected: 05/14/2018 Status: F Source: [facility] 4:13 PM [facility] REPOSITORY TYPE CODE TESTS RESULT OUT OF REFERENCE UNITS RANGE LAB AISHWARYA(LOINC) 37.0-80.0 % Neutrophil % 69.5 LAB LYM(LOINC) 10.0-50.0 % Lymphocyte % 20.4 LAB MON(LOINC) 1.7-13.0 % Monocyte % 7.3 LAB EO(LOINC) 0.0-7.0 % Eosinophil % 1.6 LAB BAS(LOINC) 0.0-2.5 % Basophil % 1.2 LAB ABLYM(LOIN 0.77-3.85 10 3/mcL C) Lymphocyte, 1.30 Absolute LAB RONALD(LOINC 0.15-1.00 10 3/mcL ) Monocyte, 0.50 Absolute LAB AEOS(LOINC 0.00-0.40 10 3/mcL ) Eosinophil, 0.10 Absolute LAB ABAS(LOINC 0.00-0.19 10 3/mcL ) Basophil, 0.10 Absolute Performed By: #### CBC, ANEU, ADIFF #### [facility] [address] [place], [place] [address] #### CMP, GFR #### [address] [address] .NEUABS Collected: 05/14/2018 Status: F Source: [facility] 4:13 [facility] REPOSITORY TYPE CODE TESTS RESULT OUT OF REFERENCE UNITS RANGE LAB ANEU(LOINC) 2.85-6.16 10 3/mcL Neutrophil, 4.60 Absolute Performed By: #### CBC, ANEU, ADIFF #### [place] [id number] [place], [place] [address] #### CMP, GFR #### [address] [address] .GFR Collected: 05/14/2018 Status: F Source: [facility] 4:13 [facility] REPOSITORY TYPE CODE TESTS RESULT OUT OF REFERENCE UNITS RANGE LAB GFRAA(LOINC ml/min/1.73 ) sqm GFR 99 [place] Result Comment: GFR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 (NON-CORONARY) 07/01- Placement of lysis catheter from distal aorta to left SFA - PAST SURGICAL HISTORY OF left wrist laceration with fracture - PAST SURGICAL HISTORY OF 1967 right eye -wood and steel removed - REPAIR ING HERNIA,5+Y/O,REDUCIBL right inguinal repair x 2 - REVASCULARIZATION ILIAC ARTERY ANGIOP 1ST VSL 12/01/2014 1.. Angioplasty left external 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 Mechanical thrombectomy left ileofemoral arteries 2. Angioplasty left iliac artery, left common femoral artery 3. Open repair left brachial artery - SHX VASCULAR SURGERY 10/23/2013 1. Left femoral endarterectomy with patch angioplasty 2. Left profundaplasty 3. Left iliac artery recanalization and stenting 4. Right iliac artery stenting 5. Bilateral iliac artery angioplasty ALLERGIES Patient has no known allergies. MEDICATIONS sertraline (ZOLOFT) 100 mg tablet TAKE 1 TABLET BY MOUTH DAILY tamsulosin ER (FLOMAX) 0.4 mg cap TAKE 1 CAPSULE BY MOUTH DAILY Back Brace misc Rigid back brace for compression Fx L3 support. gabapentin (NEURONTIN) 300 mg capsule Take 1 capsule by mouth twice daily. HYDROcodone-acetaminophen (NORCO) 5-325 mg per tablet Take 1 tablet by mouth as directed. COMPOUNDED PRESCRIPTION BLOOD PRESSURE CUFF FOR HOME USE. DX: LABILE BLOOD PRESSURE hydrOXYzine HCl (ATARAX) 50 mg tablet TAKE 1 TABLET BY MOUTH THREE TIMES A DAY NEEDED busPIRone (BUSPAR) 10 mg tablet TAKE 1 TABLET BY MOUTH THREE TIMES A DAY COMPOUNDED PRESCRIPTION Aerosol supplies Dx:J44.1 NPI#[id number] meloxicam (MOBIC) 7.5 mg tablet TAKE 1 TABLET BY MOUTH DAILY FOR PAIN WITH FOOD. Omeprazole 40 mg capsule 1 po qd while on prednisone ondansetron (ZOFRAN) 8 mg tablet Take 0.5 tablets by mouth every 8 hours as needed. warfarin (COUMADIN) 5 mg tablet Take 1 tablet by mouth once daily. ipratropium-albuterol (DUONEB) 0.5 mg-3 mg(2.5 mg base)/3 mL nebu Inhale 3 mL as instructed every 6 hours as needed (wheezing). Use over 5-15minutes per nebulizer. albuterol HFA (VENTOLIN HFA) 90 mcg/actuation inhaler Inhale 2 Puffs as instructed every 4 hours as needed. COMPOUNDED PRESCRIPTION 3 prong cane senna (SENNA CONCENTRATE) 8.6 mg tab Take 1 tablet by mouth daily at bedtime. mirtazapine (REMERON) 15 mg tablet Take 1 tablet by mouth daily at bedtime. gabapentin (NEURONTIN) 600 mg tablet Take 1 tablet by mouth four times daily for [address] (DEPAKOTE) 250 mg EC tablet Take 1 tablet by mouth twice daily. LORazepam (ATIVAN) 0.5 mg tab Take 1 tablet by mouth twice daily as needed. pantoprazole DR (PROTONIX) 40 mg tablet Take 1 tablet by mouth daily before breakfast. Take on empty stomach, 1/2 hr before meal. metoprolol tartrate, short acting, (LOPRESSOR) 50 mg tablet Take 1 tablet by mouth twice daily. Take twice a day with 25 mg tab finasteride (PROSCAR) 5 mg tablet Take 1 tablet by mouth once daily. atorvastatin (LIPITOR) 40 mg tablet Take 1 tablet by mouth once daily. carBAMazepine XR (TEGRETOL XR) 200 mg 12 hr tablet Take 1 tablet by mouth twice daily. COMPOUNDED PRESCRIPTION Hinged knee brace- right Re: osteoarthritis of the knee fluticasone-salmeterol (ADVAIR DISKUS) 250-50 mcg/dose dsdv Inhale 1 Puff as instructed twice daily. RINSE AND GARGLE MOUTH WITH WATER AFTER EACH USE. Leg Brace (KNEE SUPPORT BRACE[place] [facility] [place] use the brace daily in the morning especially if he needs to bear weight . predniSONE (DELTASONE) 20 mg tablet Take 20 mg by mouth once daily. Two tabs daily aspirin, enteric coated (ASPIRIN, ENTERIC COATED) 81 mg EC tablet Take 81 mg by mouth once daily. lidocaine 4 % gel Apply 1 Patch as directed every 24 hours. ferrous sulfate 325 mg (65 mg iron) tablet Take 325 mg by mouth daily with breakfast. docusate sodium 100 mg capsule Take 1 capsule by mouth twice daily. Blood Pressure Monitor kit Check bp 2 to 3x daily FAMILY HISTORY Problem Relation Age of Onset - Coronary Artery Disease Mother HTN; DM - Hypertension Mother - Coronary Artery Disease Father HTN; DM - Hypertension Father - Coronary Artery Disease Sister DM - Heart Brother PPM - Heart Brother DM - Ischemic Heart Disease Maternal Grandfather - Diabetes Maternal Grandmother MVP - Ischemic Heart Disease Paternal Grandfather - other (MVA) Maternal Uncle broken back - other (MVA) Daughter broken back Social History Substance Use Topics - Smoking status: Current Every Day Smoker Packs/day: 0.50 Years: 50.00 Types: Cigarettes Start date: 06/19/1958 - Smokeless tobacco: Never Used - Alcohol use No Comment: History of alcohol abuse. I cut that out. PHYSICAL EXAM BP 124/72 Pulse 60 Temp 36.3 ?C (97.4 ?F) (Temporal Artery) Resp 16 Wt 68.9 kg (152 lb) SpO2 94% BMI 23.11 kg/m? General Appearance: well appearing, in no acute distress, alert Pysch: mood and affect broad and appropriate Skin: Skin color, texture, turgor normal for age; Head: normocephalic, atraumatic Eyes: conjunctiva pink and moist, no icterus, sclera white, non-injected Lungs: Lungs sounds diminished, scattered wheezes on inspiration with rhonci Heart: RRR without murmur, gallop, or rubs. No ectopy Abdomen: Abdomen soft, non-tender. Bowel sounds normal. No masses, organomegaly Bilateral Lower Extremities: No deformities, edema, skin discoloration, clubbing or cyanosis. Good capillary refill. BP CONTROLLED (<130/80) due on 1967 INFLUENZA(1) due on 02/17/2018 PNEUMOVAX AGE 65 AND OVER WITH 5YR LOOKBACK(1) due on 03/25/2018 STATIN MED ADHERENCE due on 03/19/2018 LDL CHOLESTEROL due on 11/17/2018 ANNUAL PCP TEAM CHRONIC DISEASE VISIT due on 02/13/2019 DIABETES SCREEN due on 10/13/2020 COLORECTAL CANCER SCREENING,SEE MODIFIER due on 10/17/2021 LIPID SCREEN due on 11/17/2022 DTAP,TDAP,TD(2 - Td) due on 01/03/2023 PROSTATE CANCER SCREENING DISCUSSION Completed ABDOMINAL AORTIC ANEURYSM SCREENING TOPIC Completed ADULT PREVNAR-13 Completed HEPATITIS C SCREENING Completed ASSESSMENT/PLAN: 1. Pulmonary emphysema, unspecified emphysema type (HCC) - ICD9: 492.8, ICD10: J43.9 (primary diagnosis) - Stable - Unclear if patient is using prescribed medications - Refills ordered for inhalers - Strongly recommend smoking cessation - Follow up in 3 months 2. Hypertension, unspecified type - ICD9: 401.9, ICD10: I10 - good control - Continue current medication(s) - Encouraged dietary sodium restriction/DASH diet - Recommended regular aerobic exercise. - Recommend home blood pressure monitoring, to bring results in on next visit - Recheck in 3 months, sooner should new symptoms or problems arise. - Goal of BP <130/80 - Patient counselled on smoking cessation. - Recommended no refined sugar, low refined starch, healthy oil intake (olive oil), healthy protein (fish) along the lines of the Mediterranean diet. 3. Hyperlipidemia, unspecified hyperlipidemia type - ICD9: 272.4, ICD10: E78.5 - good control - Continue current medication. - Encouraged following a low fat, low cholesterol diet. - Check fasting lipid panel and ALT in 6 months. - Follow up in 12 weeks. - Encouraged following a low carbohydrate, healthy oil intake diet. 4. Coronary artery disease, angina presence unspecified, unspecified vessel or lesion type, unspecified whether [place] or transplanted heart - ICD9: 414.00, ICD10: I25.10 - Stable - Continue current medications - Follow up in 3 months 5. Vertebral compression fracture (HCC) - ICD9: 805.8, ICD10: M48.50XA - continue tx with pain management as scheduled - Reviewed the need for Calcium and Vitamin D supplements and weight bearing exercise as tolerated - Patient to follow up with [facility] on status of back brace as previously ordered 6. COPD with chronic bronchitis (HCC) - ICD9: 491.20, ICD10: J44.9 - Stable, plan as above see #1 - FLUTICASONE 250 MCG-SALMETEROL 50 MCG/DOSE BLISTR POWDR FOR INHALATION 7. Tobacco use disorder - ICD9: 305.1, ICD10: F17.200 - Cessation encouraged. - Physiologic and physical aspects of tobacco addiction as well as strategies for quitting were discussed. - Counseling was given focusing on the harmful effects of this addiction especially given the patient's medical condition(s) which will be worsened because of the chemicals in tobacco. 8. Need for vaccination - ICD9: V05.9, ICD10: Z23 - INFLUENZA SEASONAL HIGH DOSE AGE 65+ Park Stevenson APRN.TENSION WORKER Prescription instructions reviewed with patient as applicable. Potential red flag symptoms discussed with the patient. Reviewed appropriate action plan to take if red flag symptoms occur. Patient agreeable to treatment plan. Referring Provider: CARLOS MORTON [[id number]] Allergies As of Date: 03/14/2018 (No Known Allergies) Date Reviewed: 03/14/2018 Reviewed by: Berta Zazueta Ma - Fully Assessed Reason for Visit: Recheck [92] Cmt: 3 Month follow up Imm/Inj [58] Cmt: Flu Vaccine Reason For Visit History Recorded Primary Visit Diagnosis:Pulmonary emphysema, unspecified emphysema type (HCC) [J43.9] Other Visit Diagnoses:Hypertension, unspecified type [I10] Hyperlipidemia, unspecified hyperlipidemia type [E78.5] Coronary artery disease, angina presence unspecified, unspecified vessel or lesion type, unspecified whether [place] or transplanted heart [I25.10] Vertebral compression fracture (HCC) [M48.50XA] COPD with chronic bronchitis (HCC) [J44.9] Tobacco use disorder [F17.200] Need for vaccination [Z23] Order(s):fluticasone-salmeterol (ADVAIR DISKUS) 250-50 mcg/dose dsdvInhale 1 Puff as instructed twice daily. RINSE AND GARGLE MOUTH WITH WATER AFTER EACH USE.Disp: 3 InhalerRfl: 3 albuterol HFA (VENTOLIN HFA) 90 mcg/actuation inhalerInhale 2 Puffs as instructed every 4 hours as needed.Disp: 1 InhalerRfl: 5 INFLUENZA SEASONAL HIGH DOSE AGE 65+ [[id number]] Order #: [id number] Prescriptions as of 03/14/2018 Sig: FLUTICASONE 250 MCG-SALMETERO* Inhale 1 Puff as instructed t* ALBUTEROL SULFATE HFA 90 MCG/* Inhale 2 Puffs as instructed * SERTRALINE 100 MG TABLET TAKE 1 TABLET BY MOUTH DAILY TAMSULOSIN 0.4 MG CAPSULE TAKE 1 CAPSULE BY MOUTH DAILY BACK BRACE Rigid back brace for compress* GABAPENTIN 300 MG CAPSULE Take 1 capsule by mouth twice* HYDROCODONE 5 MG-ACETAMINOPHE* Take 1 tablet by mouth as dir* HYDROXYZINE HCL 50 MG TABLET TAKE 1 TABLET BY MOUTH THREE * BUSPIRONE 10 MG TABLET TAKE 1 TABLET BY MOUTH THREE * MELOXICAM 7.5 MG TABLET TAKE 1 TABLET BY MOUTH DAILY * OMEPRAZOLE 40 MG CAPSULE,MATHEUS* 1 po qd while on prednisone ONDANSETRON HCL 8 MG TABLET Take 0.5 tablets by mouth dillon* WARFARIN 5 MG TABLET Take 1 tablet by mouth once d* IPRATROPIUM-ALBUTEROL 0.5 MG-* Inhale 3 mL as instructed dillon* SENNOSIDES 8.6 MG TABLET Take 1 tablet by mouth daily * MIRTAZAPINE 15 MG TABLET Take 1 tablet by mouth daily * DIVALPROEX 250 MG TABLET,MATHEUS* Take 1 tablet by mouth twice * PANTOPRAZOLE 40 MG TABLET,DEL* Take 1 tablet by mouth daily * METOPROLOL TARTRATE 50 MG TAB* Take 1 tablet by mouth twice * FINASTERIDE 5 MG TABLET Take 1 tablet by mouth once d* ATORVASTATIN 40 MG TABLET Take 1 tablet by mouth once d* CARBAMAZEPINE ER 200 MG TABLE* Take 1 tablet by mouth twice * PREDNISONE 20 MG TABLET Take 20 mg by mouth once dominick* ASPIRIN 81 MG TABLET,DELAYED * Take 81 mg by mouth once dominick* LIDOCAINE 4 % TOPICAL GEL Apply 1 Patch as directed dillon* FERROUS SULFATE 325 MG (65 MG* Take 325 mg by mouth daily wi* DOCUSATE SODIUM 100 MG CAPSULE Take 1 capsule by mouth twice* BLOOD PRESSURE MONITOR KIT Check bp 2 to 3x daily Problem List As Of Date 03/14/2018 Noted Resolved Headache [R51] INVALID FOR* Class: 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 Hypertension [I10] Priority: D More... Hyperlipidemia [E78.5] INVALID FOR* Priority: E More... CAD (coronary artery disease) [I25.10] INVALID FOR* Priority: J More... COPD (chronic obstructive pulmonary disease) (H* Priority: C More... Tobacco use disorder [F17.200] More... Anxiety and depression [F41.9, F32.9] Priority: E More... Blindness of right eye [H54.40] Bilateral shoulder pain [M25.511, M25.512] INVALID FOR* Neck pain [M54.2] INVALID FOR* Chronic low back pain [M54.5, G89.29] INVALID FOR* Vertebral compression fracture [M48.50XA] INVALID FOR* Lumbar spondylosis [M47.816] INVALID FOR* Lumbar radiculopathy [M54.16] INVALID FOR* Rectal bleeding [K62.5] 11/13/2013 Ischemia of extremity [I99.8] INVALID FOR*02/10/2014 Priority: B More... Urinary retention [R33.9] INVALID FOR* Priority: E More... DISPOSITION AND FOLLOW-UP [V999.01] INVALID FOR* Priority: M More... Erythema of groin [L53.9] INVALID FOR*02/10/2014 Priority: B More... SUMMARY [V999.95] INVALID FOR* Priority: Very Severe More... Pain, postoperative, acute [G89.18] INVALID FOR*02/10/2014 Priority: B More... Thrombosis [I82.90] INVALID FOR*02/10/2014 Priority: A More... Anticoagulation goal of INR 2 to 3 [Z51.81, Z79*INVALID FOR* Priority: B More... Melena [K92.1] INVALID FOR* Priority: A More... IBD (inflammatory bowel disease) [K52.9] INVALID FOR* Priority: K More... Abdominal pain, other specified site [R10.9] INVALID FOR* Priority: I More... Anxiety [F41.9] INVALID FOR* Priority: K More... Urinary retention with incomplete bladder empty*INVALID FOR* Priority: C More... Hyponatremia [E87.1] INVALID FOR* More... GI bleeding [D62] INVALID FOR* Priority: B More... Anemia due to acute blood loss [D62] INVALID FOR* More... s/p left femoral endarterectomy/aortoiliac sten*INVALID FOR* Priority: A More... PVD (peripheral vascular disease) ([facility]) [I73.9] INVALID FOR* More... Lupus anticoagulant disorder ([facility]) [D68.62] INVALID FOR* More... Ulcerative colitis ([facility]) [K51.90] INVALID FOR* Priority: G More... Smoker [F17.200] INVALID FOR* Priority: C More... Hematoma, postoperative [ZXI1674] INVALID FOR*08/11/2014 Priority: C More... Lipoma of abdominal wall [D17.1] INVALID FOR* More... Ischaemic rest pain of lower extremity (HCC) [I*INVALID FOR* Illiterate [Z55.0] INVALID FOR* Pain in left shoulder [M25.512] INVALID FOR* More... Acute GI bleeding [K92.2] INVALID FOR* Priority: A More... Hypotension due to blood loss [I95.89] INVALID FOR* Priority: B More... Dysuria [R30.0] INVALID FOR* Priority: D More... Lipoma of back [D17.1] INVALID FOR* Seizure disorder (HCC) [G40.909] INVALID FOR*07/10/2017 Trigeminal neuralgia [G50.0] INVALID FOR* More... 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 Prescriptions ordered this encounter Disp Refills Start End FLUTICASONE 250 MCG-SALMETEROL 50 MC* 3 In* 3 03/14/2018 Route: INHALATION Sig: Inhale 1 Puff as instructed twice daily. RINSE AND GARGLE MOUTH WITH WATER AFTER EACH USE. ALBUTEROL SULFATE HFA 90 MCG/ACTUATI* 1 In* 5 03/14/2018 Route: INHALATION Sig: Inhale 2 Puffs as instructed every 4 hours as needed. Medications Discontinued During This Encounter COMPOUNDED PRESCRIPTION 1 Ea* 0 01/11/2018 03/14/2018 Class: Print RX Sig: BLOOD PRESSURE CUFF FOR HOME USE. DX: LABILE BLOOD PRESSURE Disc: Reason for discontinue is not on file. COMPOUNDED PRESCRIPTION 1 Ea* 1 09/25/2017 03/14/2018 Class: Print RX Si prong cane Disc: Reason for discontinue is not on file. COMPOUNDED PRESCRIPTION 1 Ea* 1 04/03/2017 03/14/2018 Class: Print RX Sig: Hinged knee brace- right Re: osteoarthritis of the knee Disc: Reason for discontinue is not on file. COMPOUNDED PRESCRIPTION 1 Ea* 2 12/12/2017 03/14/2018 Class: Print RX Sig: Aerosol supplies Dx:J44.1 NPI#[id number] Disc: Reason for discontinue is not on file. gabapentin (NEURONTIN) 600 mg tablet 120 * 2 08/03/2017 03/14/2018 Route: ORAL Sig: Take 1 tablet by mouth four times daily for 90 days. Patient not taking: Reported on 02/13/2018 Disc: Reason for discontinue is not on file. [facility] Ea* 0 03/22/2017 03/14/2018 Class: Print RX Sig: Please use the brace daily in the morning especially if he needs to bear weight . Disc: Reason for discontinue is not on file. LORazepam (ATIVAN) 0.5 mg tab 30 t* 0 05/09/2017 03/14/2018 Class: Print RX Route: ORAL Sig: Take 1 tablet by mouth twice daily as needed. Disc: Reason for discontinue is not on file. fluticasone-salmeterol (ADVAIR DISKU* 3 In* 3 03/22/2017 03/14/2018 Route: INHALATION Sig: Inhale 1 Puff as instructed twice daily. RINSE AND GARGLE MOUTH WITH WATER AFTER EACH USE. Disc: Reason for discontinue is not on file. albuterol HFA (VENTOLIN HFA) 90 mcg/* 1 In* 5 10/13/2017 03/14/2018 Route: INHALATION Sig: Inhale 2 Puffs as instructed every 4 hours as needed. Disc: Reason for discontinue is not on file. Disposition: Return in about 3 months (around 06/13/2018). Follow-up and Disposition History Recorded Encounter Status:Closed by PARK STEVENSON CNP on 03/14/18 PROGRESS Observed: 03/09/2018 Status: COMPLETED Source: [place] 4:06 PM [facility] REPOSITORY HNO ID: [id number] Author: Irlanda Guadalupe RN Service: (none) Author Type: (none) Type: Progress Notes Filed: 03/09/2018 4:06 PM Note Text: per written order by dr montenegro patient is to hold coumadin today and then restart on 5mg mon and 7.5mg all other days PATIENT NOTIFIED OF INFORMATION PROGRESS Observed: 03/09/2018 Status: COMPLETED Source: [place] 11:16 AM [facility] REPOSITORY HNO ID: [id number] Author: Irlanda Guadalupe RN Service: (none) Author Type: (none) Type: Progress Notes Filed: 03/09/2018 11:18 AM Note Text: patient had inr completed at [facility] patients inr is 3.3 (patients inr range is 2.0-3.0) patient is currently taking 7.5mg daily per ER orders patients last dose change was on 03/07/18 due to a low level of 1.8 at [facility] ER (dose at that time was 5mg Mon and 7.5mg all other days) patient has had no changes in medication except for coumadin and no missed doses and no change in diet Advised patient that they would be contacted regarding medication dose and when to follow up after information is reviewed by provider. After provider review please contact the patient with information and schedule follow up appointment with coumadin clinic. FYI - patient has been scheduled for a 1 week follow up inr on 03/16/18 EMERGENCY DEPARTMENT Observed: 03/07/2018 Status: F Source: [facility] 4:22 [facility] REPOSITORY [facility] Medical Records Department [address] [place] [address] Emergency Department Summary 03/07/18 1138 MR#: [id number] Acct: [id number] Name: MILES SIERRA Rep #: [id number] : 1950 67 From: Perfecto Bush DO PCP: Carlos Morton MD Status: DEP ER - ER Visit Summary Date of Service: 03/07/18 Chief Complaint: Left arm skin tear History of Present Illness: The patient is a 67 M who is on Coumadin needs his INR checked states that he stumbled and caught his left arm against the counter last night causing a tear of the skin on the left arm. He notes his tetanus has been within the past 5-10 years. Eyes any other injuries. Physical Examination: Afebrile vital signs are stable There is #2 1 cm skin avulsions that are superficial to the left posterior forearm. There is no active bleeding. Test Results: INR 1.8 Emergency Department Course and Treatment: Wounds were cleansed and dressed with bacitracin. He was advised of his INR. He will double his dose today and contact his primary care physician for retesting. Impression: 1. Left arm skin avulsion 2. Subtherapeutic INR This note was generated with Silver[employer] dictation software. It may contain incorrect words, spelling, and punctuation that were not noted in review of the chart prior to signing ED Disposition - Plan for ED Patient: Disposition: Home or Assisted Living Chief Complaint: Wound Instructions: ED Avulsion Dermal Referrals: Carlos Morton MD [Primary Care Provider] - 2 Days Additional Instructions: Take 7.5 mg of Coumadin when you get home and take your usual dose at your regularly scheduled time. You need to have your INR checked on Monday Good local wound care as directed. What to do if you have Problems For any increased pain, shortness of breath, bleeding, nausea or vomiting, chest pain, or any unexpected problems, contact your Primary Care Provider. Call [facility] ([phone]) or report to the closest Emergency Room. Call 911 if necessary. 03/07/18 1622 <Electronically signed by Perfecto Bush DO> Date Perfecto Lennon Signature (If Indicated): Date CC: Carlos Morton MD PROTHROMBIN TIME W/INR Collected: 03/07/2018 Status: F Source: [place] 10:30 AM [facility] REPOSITORY TYPE CODE TESTS RESULT OUT OF RANGE REFERENCE UNITS LAB L300.4150 11.7-14.9 SECONDS High PROTIME 20.5 LAB L300.4200 Normal INR 1.8 Performed By: #### L300.3900 #### [facility] [address] [place], [address] CNPTOUTREACH Observed: 02/27/2018 Status: COMPLETED Source: [place] 12:00 AM [facility] REPOSITORY Patient Outreach ([facility]) MILES SIERRA ([id number]) 1950 M Date Time Provider Department 02/27/18 CARLOS MORTON [facility] During your visit today, we recorded the following information about you: Allergies As of Date: 02/27/2018 (No Known Allergies) Date Reviewed: 02/13/2018 Reviewed by: John Joshi Ma - Fully Assessed Visit Diagnosis:Medication management [Z79.899] Order(s):HGB A1C [[id number]] Order #: [id number] FUTURE Prescriptions as of 02/27/2018 Sig: BACK BRACE Rigid back brace for compress* GABAPENTIN 300 MG CAPSULE Take 1 capsule by mouth twice* HYDROCODONE 5 MG-ACETAMINOPHE* Take 1 tablet by mouth as dir* X COMPOUNDED PRESCRIPTION BLOOD PRESSURE CUFF FOR HOME * X HYDROXYZINE HCL 50 MG TABLET TAKE 1 TABLET BY MOUTH THREE * X BUSPIRONE 10 MG TABLET TAKE 1 TABLET BY MOUTH THREE * X COMPOUNDED PRESCRIPTION 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* MELOXICAM 7.5 MG TABLET TAKE 1 TABLET BY MOUTH DAILY * OMEPRAZOLE 40 MG CAPSULE,MATHEUS* 1 po qd while on prednisone ONDANSETRON HCL 8 MG TABLET Take 0.5 tablets by mouth dillon* X WARFARIN 5 MG TABLET Take 1 tablet by mouth once d* IPRATROPIUM-ALBUTEROL 0.5 MG-* Inhale 3 mL as instructed dillon* X SERTRALINE 50 MG TABLET Take 1 tablet by mouth once d* X ALBUTEROL SULFATE HFA 90 MCG/* Inhale 2 Puffs as instructed * X COMPOUNDED PRESCRIPTION 3 prong cane SENNOSIDES 8.6 MG TABLET Take 1 tablet by mouth daily * X MIRTAZAPINE 15 MG TABLET Take 1 tablet by mouth daily * X GABAPENTIN 600 MG TABLET Take 1 tablet by mouth four t* Patient not taking: Reported on 02/13/2018 DIVALPROEX 250 MG TABLET,MATHEUS* Take 1 tablet by mouth twice * X LORAZEPAM 0.5 MG TABLET Take 1 tablet by mouth twice * X PANTOPRAZOLE 40 MG TABLET,DEL* Take 1 tablet by mouth daily * X METOPROLOL TARTRATE 50 MG TAB* Take 1 tablet by mouth twice * ATORVASTATIN 40 MG TABLET Take 1 tablet by mouth once d* CARBAMAZEPINE ER 200 MG TABLE* Take 1 tablet by mouth twice * X SERTRALINE 100 MG TABLET Take 1 tablet by mouth once d* X FINASTERIDE 5 MG TABLET Take 1 tablet by mouth once d* X TAMSULOSIN 0.4 MG CAPSULE Take 1 capsule by mouth once * X COMPOUNDED PRESCRIPTION Hinged knee brace- right Re: * X FLUTICASONE 250 MCG-SALMETERO* Inhale 1 Puff as instructed t* X LEG BRACE Please use the brace daily in* PREDNISONE 20 MG TABLET Take 20 mg by mouth once dominick* ASPIRIN 81 MG TABLET,DELAYED * Take 81 mg by mouth once dominick* LIDOCAINE 4 % TOPICAL GEL Apply 1 Patch as directed dillon* FERROUS SULFATE 325 MG (65 MG* Take 325 mg by mouth daily wi* DOCUSATE SODIUM 100 MG CAPSULE Take 1 capsule by mouth twice* BLOOD PRESSURE MONITOR KIT Check bp 2 to 3x daily Problem List As Of Date 02/27/2018 Noted Resolved Headache [R51] INVALID FOR* Class: 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 Hypertension [I10] Priority: D More... Hyperlipidemia [E78.5] INVALID FOR* Priority: E More... CAD (coronary artery disease) [I25.10] INVALID FOR* Priority: J More... COPD (chronic obstructive pulmonary disease) (H* Priority: C More... Tobacco use disorder [F17.200] More... Anxiety and depression [F41.9, F32.9] Priority: E More... Blindness of right eye [H54.40] Bilateral shoulder pain [M25.511, M25.512] INVALID FOR* Neck pain [M54.2] INVALID FOR* Chronic low back pain [M54.5, G89.29] INVALID FOR* Vertebral compression fracture [M48.50XA] INVALID FOR* Lumbar spondylosis [M47.816] INVALID FOR* Lumbar radiculopathy [M54.16] INVALID FOR* Rectal bleeding [K62.5] 11/13/2013 Ischemia of extremity [I99.8] INVALID FOR*02/10/2014 Priority: B More... Urinary retention [R33.9] INVALID FOR* Priority: E More... DISPOSITION AND FOLLOW-UP [V999.01] INVALID FOR* Priority: M More... Erythema of groin [L53.9] INVALID FOR*02/10/2014 Priority: B More... SUMMARY [V999.95] INVALID FOR* Priority: Very Severe More... Pain, postoperative, acute [G89.18] INVALID FOR*02/10/2014 Priority: B More... Thrombosis [I82.90] INVALID FOR*02/10/2014 Priority: A More... Anticoagulation goal of INR 2 to 3 [Z51.81, Z79*INVALID FOR* Priority: B More... Melena [K92.1] INVALID FOR* Priority: A More... IBD (inflammatory bowel disease) [K52.9] INVALID FOR* Priority: K More... Abdominal pain, other specified site [R10.9] INVALID FOR* Priority: I More... Anxiety [F41.9] INVALID FOR* Priority: K More... Urinary retention with incomplete bladder empty*INVALID FOR* Priority: C More... Hyponatremia [E87.1] INVALID FOR* More... GI bleeding [D62] INVALID FOR* Priority: B More... Anemia due to acute blood loss [D62] INVALID FOR* More... s/p left femoral endarterectomy/aortoiliac sten*INVALID FOR* Priority: A More... PVD (peripheral vascular disease) ([facility]) [I73.9] INVALID FOR* More... Lupus anticoagulant disorder (HCC) [D68.62] INVALID FOR* More... Ulcerative colitis ([facility]) [K51.90] INVALID FOR* Priority: G More... Smoker [F17.200] INVALID FOR* Priority: C More... Hematoma, postoperative [YUE0725] INVALID FOR*08/11/2014 Priority: C More... Lipoma of abdominal wall [D17.1] INVALID FOR* More... Ischaemic rest pain of lower extremity (HCC) [I*INVALID FOR* Illiterate [Z55.0] INVALID FOR* Pain in left shoulder [M25.512] INVALID FOR* More... Acute GI bleeding [K92.2] INVALID FOR* Priority: A More... Hypotension due to blood loss [I95.89] INVALID FOR* Priority: B More... Dysuria [R30.0] INVALID FOR* Priority: D More... Lipoma of back [D17.1] INVALID FOR* Seizure disorder (HCC) [G40.909] INVALID FOR*07/10/2017 Trigeminal neuralgia [G50.0] INVALID FOR* More... 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 Encounter Status:Closed by ANJALI TELLO on 03/30/18 QI Observed: 02/26/2018 Status: COMPLETED Source: [place] 12:00 AM [facility] REPOS[facility] Telephone (INTMWS) MARIELAMILES CASTANEDA ([id number]) 1950 M Date Time Provider Department 02/26/18 CARLOS MORTON During your visit today, we recorded the following information about you: Karin Ricketts, RN, RN 02/26/2018 4:41 PM Signed Pt calls, stating [facility] did not receive fax for back brace that was sent over on 02/23. Pt asking if rx can be faxed again. Demian Desai LPN 02/27/2018 9:53 AM Signed Written rx has been refaxed to [facility]. Demian Desai LPN Debby Shana [employer]GAN[employer]ER 03/09/2018 11:26 AM Signed Patient calling having issues with getting back brace [facility] had to order smaller size for him. He did not know phone number which I gave him that. Advised to call and find out if still able to get brace from them. Patient will let office know if not. 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* MELOXICAM 7.5 MG TABLET TAKE 1 TABLET BY MOUTH DAILY * OMEPRAZOLE 40 MG CAPSULE,MATHEUS* 1 po qd while on prednisone ONDANSETRON HCL 8 MG TABLET Take 0.5 tablets by mouth dillon* WARFARIN 5 MG TABLET Take 1 tablet by mouth once d* IPRATROPIUM-ALBUTEROL 0.5 MG-* Inhale 3 mL as instructed dillon* ALBUTEROL SULFATE HFA 90 MCG/* Inhale 2 Puffs as instructed * X SERTRALINE 50 MG TABLET Take 1 tablet by mouth once d* COMPOUNDED PRESCRIPTION 3 prong cane SENNOSIDES 8.6 MG TABLET Take 1 tablet by mouth daily * MIRTAZAPINE 15 MG TABLET Take 1 tablet by mouth daily * DIVALPROEX 250 MG TABLET,MATHEUS* Take 1 tablet by mouth twice * LORAZEPAM 0.5 MG TABLET Take 1 tablet by mouth twice * PANTOPRAZOLE 40 MG TABLET,DEL* Take 1 tablet by mouth daily * METOPROLOL TARTRATE 50 MG TAB* Take 1 tablet by mouth twice * FINASTERIDE 5 MG TABLET Take 1 tablet by mouth once d* ATORVASTATIN 40 MG TABLET Take 1 tablet by mouth once d* CARBAMAZEPINE ER 200 MG TABLE* Take 1 tablet by mouth twice * X SERTRALINE 100 MG TABLET Take 1 tablet by mouth once d* X TAMSULOSIN 0.4 MG CAPSULE Take 1 capsule by mouth once * COMPOUNDED PRESCRIPTION Hinged knee brace- right Re: * FLUTICASONE 250 MCG-SALMETERO* Inhale 1 Puff as instructed t* LEG BRACE Please use the brace daily in* PREDNISONE 20 MG TABLET Take 20 mg by mouth once dominick* ASPIRIN 81 MG TABLET,DELAYED * Take 81 mg by mouth once dominick* LIDOCAINE 4 % TOPICAL GEL Apply 1 Patch as directed dillon* FERROUS SULFATE 325 MG (65 MG* Take 325 mg by mouth daily wi* DOCUSATE SODIUM 100 MG CAPSULE Take 1 capsule by mouth twice* BLOOD PRESSURE MONITOR KIT Check bp 2 to 3x daily Problem List As Of Date 02/26/2018 Noted Resolved Headache [R51] INVALID FOR* Class: 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 Hypertension [I10] Priority: D More... Hyperlipidemia [E78.5] INVALID FOR* Priority: E More... CAD (coronary artery disease) [I25.10] INVALID FOR* Priority: J More... COPD (chronic obstructive pulmonary disease) (H* Priority: C More... Tobacco use disorder [F17.200] More... Anxiety and depression [F41.9, F32.9] Priority: E More... Blindness of right eye [H54.40] Bilateral shoulder pain [M25.511, M25.512] INVALID FOR* Neck pain [M54.2] INVALID FOR* Chronic low back pain [M54.5, G89.29] INVALID FOR* Vertebral compression fracture [M48.50XA] INVALID FOR* Lumbar spondylosis [M47.816] INVALID FOR* Lumbar radiculopathy [M54.16] INVALID FOR* Rectal bleeding [K62.5] 11/13/2013 Ischemia of extremity [I99.8] INVALID FOR*02/10/2014 Priority: B More... Urinary retention [R33.9] INVALID FOR* Priority: E More... DISPOSITION AND FOLLOW-UP [V999.01] INVALID FOR* Priority: M More... Erythema of groin [L53.9] INVALID FOR*02/10/2014 Priority: B More... SUMMARY [V999.95] INVALID FOR* Priority: Very Severe More... Pain, postoperative, acute [G89.18] INVALID FOR*02/10/2014 Priority: B More... Thrombosis [I82.90] INVALID FOR*02/10/2014 Priority: A More... Anticoagulation goal of INR 2 to 3 [Z51.81, Z79*INVALID FOR* Priority: B More... Melena [K92.1] INVALID FOR* Priority: A More... IBD (inflammatory bowel disease) [K52.9] INVALID FOR* Priority: K More... Abdominal pain, other specified site [R10.9] INVALID FOR* Priority: I More... Anxiety [F41.9] INVALID FOR* Priority: K More... Urinary retention with incomplete bladder empty*INVALID FOR* Priority: C More... Hyponatremia [E87.1] INVALID FOR* More... GI bleeding [D62] INVALID FOR* Priority: B More... Anemia due to acute blood loss [D62] INVALID FOR* More... s/p left femoral endarterectomy/aortoiliac sten*INVALID FOR* Priority: A More... PVD (peripheral vascular disease) (HCC) [I73.9] INVALID FOR* More... Lupus anticoagulant disorder (HCC) [D68.62] INVALID FOR* More... Ulcerative colitis (HCC) [K51.90] INVALID FOR* Priority: G More... Smoker [F17.200] INVALID FOR* Priority: C More... Hematoma, postoperative [WQG2980] INVALID FOR*08/11/2014 Priority: C More... Lipoma of abdominal wall [D17.1] INVALID FOR* More... Ischaemic rest pain of lower extremity (HCC) [I*INVALID FOR* Illiterate [Z55.0] INVALID FOR* Pain in left shoulder [M25.512] INVALID FOR* More... Acute GI bleeding [K92.2] INVALID FOR* Priority: A More... Hypotension due to blood loss [I95.89] INVALID FOR* Priority: B More... Dysuria [R30.0] INVALID FOR* Priority: D More... Lipoma of back [D17.1] INVALID FOR* Seizure disorder (HCC) [G40.909] INVALID FOR*07/10/2017 Trigeminal neuralgia [G50.0] INVALID FOR* More... 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 Encounter Status:Closed by DEMIAN DESAI LPN on 02/27/18 XR LUMBAR 3V Observed: 02/21/2018 Status: F Source: [place] AP/LAT/L5-S1 2:57 PM [facility] * * *Final Report* * * DATE OF EXAM: Feb 21 2018 2:57PM WOX [id number] - XR LUMBAR 3V AP/LAT/L5-S1 / PROCEDURE REASON: multiple diagnoses * * * * Physician Interpretation * * * * EXAM: LUMBAR SPINE, 3 VIEWS; AP PELVIS AND LEFT HIP, 3 VIEWS CLINICAL: 67-year-old male with low back pain left leg pain TECHNIQUE: AP, lateral coned down lateral ; AP pelvis, coned down AP and frog lateral left hip COMPARISON: Left hip done on 08/29/2017 and lumbar spine done on 11/26/2012 RESULTS: Counting reference: The iliac crest level is considered L4.L5 or the first vertebrae proximal to the sacrum is considered L5. Mild narrowing of L3/L4 disc space. There is a moderate to severe superior endplate compression fracture of the L3 vertebral body with 6 mm retrolisthesis of L3 in relation L4. Vertebral bodies and pedicles are intact. Osteopenia. Abdominal aortic calcifications are present. AP pelvis and left hip: Moderate superomedial narrowing of the left hip with small subchondral cysts. Bone island in the left femoral neck.. Mild superomedial hip joint space narrowing the right hip. Sacroiliac joints not well-visualized. Arterial callus occasions are present. IMPRESSION: L3 COMPRESSION FRACTURE HAS PROGRESSED SINCE THE PREVIOUS EXAMINATION. SPINE IS OTHERWISE UNCHANGED. MODERATE DEGENERATIVE CHANGES OF LEFT HIP UNCHANGED COMPARED TO PREVIOUS EXAM. Bottle Gauger: SHANELL Transcribe Date/Time: Feb 21 2018 3:04P Dictated by : KALPESH CHARLES MD This examination was interpreted and the report reviewed and electronically signed by: KALPESH CHARLES MD on Feb 21 2018 3:13PM EST [id number] XR HIP 3V PELV+ Observed: 02/21/2018 Status: F Source: [place] AP/LAT LT 2:57 PM [facility] REPOSITORY * * *Final Report* * * DATE OF EXAM: Feb 21 2018 2:57PM WOX [id number] - XR HIP 3V PELV+ AP/LAT LT / PROCEDURE REASON: multiple diagnoses * * * * Physician Interpretation * * * * EXAM: LUMBAR SPINE, 3 VIEWS; AP PELVIS AND LEFT HIP, 3 VIEWS CLINICAL: 67-year-old male with low back pain left leg pain TECHNIQUE: AP, lateral coned down lateral ; AP pelvis, coned down AP and frog lateral left hip COMPARISON: Left hip done on 08/29/2017 and lumbar spine done on 11/26/2012 RESULTS: Counting reference: The iliac crest level is considered L4.L5 or the first vertebrae proximal to the sacrum is considered L5. Mild narrowing of L3/L4 disc space. There is a moderate to severe superior endplate compression fracture of the L3 vertebral body with 6 mm retrolisthesis of L3 in relation L4. Vertebral bodies and pedicles are intact. Osteopenia. Abdominal aortic calcifications are present. AP pelvis and left hip: Moderate superomedial narrowing of the left hip with small subchondral cysts. Bone island in the left femoral neck.. Mild superomedial hip joint space narrowing the right hip. Sacroiliac joints not well-visualized. Arterial callus occasions are present. IMPRESSION: L3 COMPRESSION FRACTURE HAS PROGRESSED SINCE THE PREVIOUS EXAMINATION. SPINE IS OTHERWISE UNCHANGED. MODERATE DEGENERATIVE CHANGES OF LEFT HIP UNCHANGED COMPARED TO PREVIOUS EXAM. Bottle Gauger: Boyibang Transcribe Date/Time: Feb 21 2018 3:04P Dictated by : KALPESH CHARLES MD This examination was interpreted and the report reviewed and electronically signed by: KALPESH CHARLES MD on Feb 21 2018 3:13PM EST [id number] PROGRESS Observed: 02/21/2018 Status: COMPLETED Source: [place] 2:40 PM [facility] HNO ID: [id number] Author: Noemi Ashton (Rt) William Pierre Service: (none) Author Type: Pile Header Type: Progress Notes Filed: 02/21/2018 2:57 PM Note Text: Radiology Service Progress Note PATIENT NAME: Miles Sierra DATE OF SERVICE: February 21, 2018 TIME: 2:40 PM PATIENT IDENTITY VERIFICATION COMPLETED USING TWO (2) METHODS: Patient confirmed name verbally and Date of . PATIENT GENDER DATA: Male PATIENT RELEVANT IMPLANT DATA REVIEWED: Not Applicable RADIOLOGY DEPARTMENT: General X-ray: Exam(s) Completed: Spine X-Ray(s): Lumbar AP / LAT / L5-S1 Pelvis X-Ray: Pelvis with Hip Left PERIPHERAL IV DATA: Not applicable SIGNED BY: RT Joni February 21, 2018 2:40 PM PROGRESS Observed: 02/21/2018 Status: COMPLETED Source: [place] 2:14 PM [facility] HNO ID: [id number] Author: Carlos Morton Service: (none) Author Type: Physician Type: Progress Notes Filed: 02/21/2018 4:39 PM Note Text: Cont the same and recheck in 2 weeks PROGRESS Observed: 02/21/2018 Status: COMPLETED Source: [place] 11:10 AM [facility] REPOS[facility] HNO ID: [id number] Author: Irlanda Guadalupe RN Service: (none) Author Type: (none) Type: Progress Notes Filed: 02/21/2018 11:11 AM Note Text: patient had inr completed at [facility] patients inr is 2.4 (patients inr range is 2.0-3.0) patient is currently taking 5mg Mon and 7.5mg all other days patients last dose change was on 02/13/18 due to a low level of 1.6 (dose at that time was 5mg Mon,Fri and 7.5mg all other days) patient has had no changes in medication and no missed doses and no change in diet Advised patient to continue on the same dose(s) and that they would only be contacted regarding dosage and follow up instructions after review with provider, if a change is needed. Written instructions given and patient verbalized understanding. Presently scheduled in 2 weeks (03/07/18) for follow up INR. PROGRESS Observed: 02/20/2018 Status: COMPLETED Source: [place] 9:52 AM [facility] RE[facility] HNO ID: [id number] Author: Berta Zazueta Ma Service: (none) Author Type: (none) Type: Progress Notes Filed: 02/20/2018 2:37 PM Note Text: Patient notified. PROGRESS Observed: 02/16/2018 Status: COMPLETED Source: [place] 2:46 PM [facility] HNO ID: [id number] Author: Park Richey) Graham Service: (none) Author Type: Nurse Practitioner Type: Progress Notes Filed: 02/20/2018 2:37 PM Note Text: Please notify patient Xrays have been ordered, he may have these completed at his convenience. Park Stevenson, CHARLES.ACE Almanzar, I will go ahead and order xrays although I do not strongly believe imaging is necessary given patient's hx, exam on Monday and previous Xray in August and MRI within the past year or so at [facility]. He would probably benefit from regular follow up as he does not seem to follow through with instructions/orders. He also doesn't seem to be aware of medications or changes when ordered or discussed either with us or with pain management. Thanks! Park PROGRESS Observed: 02/16/2018 Status: COMPLETED Source: [place] 10:35 AM [facility] RE[facility] HNO ID: [id number] Author: Aleja Low Service: (none) Author Type: Registered Nurse Type: Progress Notes Filed: 02/20/2018 2:37 PM Note Text: PRIMARY CARE COORDINATION FOLLOW-UP NOTE Provider Action/FYI Please file XRs so pt can be referred to Ortho. Patient identified by name and date of . YES Spoke to patient Summary: Pt has pain and radicular pain L leg w/neuropathy. Has not had XRs done recently. Please file XRs and perhaps we can refer him to Ortho for eval. Not sure if needs to see hip or spinal yet. His F/U with Dr Flowers 03/07. Concerns: Pt has had neuropathy but pain is worsening L leg each day. Pt VERY difficult to assess as has very low pain threshold. Thinks neuropathy result of vascular bypass surgery. I tried to explain NOT from surg but rather poor circ. May also have back/hip problem. I called Alannah's office nad he did not decrease Maricruz- pt had stopped and he now back on at 300mg BID. May need to consider increase had previously been taking 600mg QID. [employer] plan for next outreach: Will follow up after XRs done. Signature Aleja Low RN Ambulatory [facility] February 16, 2018 ACETOUTRNACHOCH Observed: 02/16/2018 Status: COMPLETED Source: [place] 12:00 AM [facility] REPOSITORY Patient Outreach (INTMWS) MILES SIERRA ([id number]) 1950 M Date Time Provider Department 02/16/18 ALEJA SCHWARTZ During your visit today, we recorded the following information about you: Aleja Barrett RN 02/20/2018 2:37 PM Signed PRIMARY CARE COORDINATION FOLLOW-UP NOTE Provider Action/FYI Please file XRs so pt can be referred to Ortho. Patient identified by name and date of . YES Spoke to patient Summary: Pt has pain and radicular pain L leg w/neuropathy. Has not had XRs done recently. Please file XRs and perhaps we can refer him to Ortho for eval. Not sure if needs to see hip or spinal yet. His F/U with Dr Flowers 03/07. Concerns: Pt has had neuropathy but pain is worsening L leg each day. Pt VERY difficult to assess as has very low pain threshold. Thinks neuropathy result of vascular bypass surgery. I tried to explain NOT from surg but rather poor circ. May also have back/hip problem. I called Alannah's office nad he did not decrease Maricruz- pt had stopped and he now back on at 300mg BID. May need to consider increase had previously been taking 600mg QID. [employer] plan for next outreach: Will follow up after XRs done. Yudy Low RN [facility] 234 BEDS AT [facility] February 16, 2018 Park Stevenson APRN.ACE 02/20/2018 2:37 PM Signed Please notify patient Xrays have been ordered, he may have these completed at his convenience. Park Stevenson APRN.ACE Jenelle, I will go ahead and order xrays although I do not strongly believe imaging is necessary given patient's hx, exam on Monday and previous Xray in August and MRI within the past year or so at [facility]. He would probably benefit from regular follow up as he does not seem to follow through with instructions/orders. He also doesn't seem to be aware of medications or changes when ordered or discussed either with us or with pain management. Thanks! Park Zazueta Ma 02/20/2018 2:37 PM Signed Patient notified. Allergies As of Date: 02/16/2018 (No Known Allergies) Date Reviewed: 02/13/2018 Reviewed by: John Joshi Ma - Fully Assessed Primary Visit Diagnosis:Lumbar pain with radiation down left leg [M54.5, M79.605] Order(s):XR HIP GENERAL 3V PELV/AP/LAT LT [[id number]] Order #: [id number] FUTURE XR LUMBAR GENERAL 3V AP/LAT/L5-S1 [[id number]] Order #: [id number] FUTURE Prescriptions as of 02/16/2018 Sig: GABAPENTIN 300 MG CAPSULE Take 1 capsule by mouth twice* HYDROCODONE 5 MG-ACETAMINOPHE* Take 1 tablet by mouth as dir* COMPOUNDED PRESCRIPTION BLOOD PRESSURE CUFF FOR HOME * HYDROXYZINE HCL 50 MG TABLET TAKE 1 TABLET BY MOUTH THREE * BUSPIRONE 10 MG TABLET TAKE 1 TABLET BY MOUTH THREE * COMPOUNDED PRESCRIPTION 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* MELOXICAM 7.5 MG TABLET TAKE 1 TABLET BY MOUTH DAILY * OMEPRAZOLE 40 MG CAPSULE,MATHEUS* 1 po qd while on prednisone ONDANSETRON HCL 8 MG TABLET Take 0.5 tablets by mouth dillon* WARFARIN 5 MG TABLET Take 1 tablet by mouth once d* SERTRALINE 50 MG TABLET Take 1 tablet by mouth once d* IPRATROPIUM-ALBUTEROL 0.5 MG-* Inhale 3 mL as instructed dillon* ALBUTEROL SULFATE HFA 90 MCG/* Inhale 2 Puffs as instructed * COMPOUNDED PRESCRIPTION 3 prong cane SENNOSIDES 8.6 MG TABLET Take 1 tablet by mouth daily * MIRTAZAPINE 15 MG TABLET Take 1 tablet by mouth daily * GABAPENTIN 600 MG TABLET Take 1 tablet by mouth four t* Patient not taking: Reported on 02/13/2018 DIVALPROEX 250 MG TABLET,MATHEUS* Take 1 tablet by mouth twice * LORAZEPAM 0.5 MG TABLET Take 1 tablet by mouth twice * PANTOPRAZOLE 40 MG TABLET,DEL* Take 1 tablet by mouth daily * METOPROLOL TARTRATE 50 MG TAB* Take 1 tablet by mouth twice * SERTRALINE 100 MG TABLET Take 1 tablet by mouth once d* FINASTERIDE 5 MG TABLET Take 1 tablet by mouth once d* ATORVASTATIN 40 MG TABLET Take 1 tablet by mouth once d* CARBAMAZEPINE ER 200 MG TABLE* Take 1 tablet by mouth twice * TAMSULOSIN 0.4 MG CAPSULE Take 1 capsule by mouth once * COMPOUNDED PRESCRIPTION Hinged knee brace- right Re: * FLUTICASONE 250 MCG-SALMETERO* Inhale 1 Puff as instructed t* LEG BRACE Please use the brace daily in* PREDNISONE 20 MG TABLET Take 20 mg by mouth once dominick* ASPIRIN 81 MG TABLET,DELAYED * Take 81 mg by mouth once dominick* LIDOCAINE 4 % TOPICAL GEL Apply 1 Patch as directed dillon* FERROUS SULFATE 325 MG (65 MG* Take 325 mg by mouth daily wi* DOCUSATE SODIUM 100 MG CAPSULE Take 1 capsule by mouth twice* BLOOD PRESSURE MONITOR KIT Check bp 2 to 3x daily Problem List As Of Date 02/16/2018 Noted Resolved Headache [R51] INVALID FOR* Class: 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 Hypertension [I10] Priority: D More... Hyperlipidemia [E78.5] INVALID FOR* Priority: E More... CAD (coronary artery disease) [I25.10] INVALID FOR* Priority: J More... COPD (chronic obstructive pulmonary disease) (H* Priority: C More... Tobacco use disorder [F17.200] More... Anxiety and depression [F41.9, F32.9] Priority: E More... Blindness of right eye [H54.40] Bilateral shoulder pain [M25.511, M25.512] INVALID FOR* Neck pain [M54.2] INVALID FOR* Chronic low back pain [M54.5, G89.29] INVALID FOR* Vertebral compression fracture [M48.50XA] INVALID FOR* Lumbar spondylosis [M47.816] INVALID FOR* Lumbar radiculopathy [M54.16] INVALID FOR* Rectal bleeding [K62.5] 11/13/2013 Ischemia of extremity [I99.8] INVALID FOR*02/10/2014 Priority: B More... Urinary retention [R33.9] INVALID FOR* Priority: E More... DISPOSITION AND FOLLOW-UP [V999.01] INVALID FOR* Priority: M More... Erythema of groin [L53.9] INVALID FOR*02/10/2014 Priority: B More... SUMMARY [V999.95] INVALID FOR* Priority: Very Severe More... Pain, postoperative, acute [G89.18] INVALID FOR*02/10/2014 Priority: B More... Thrombosis [I82.90] INVALID FOR*02/10/2014 Priority: A More... Anticoagulation goal of INR 2 to 3 [Z51.81, Z79*INVALID FOR* Priority: B More... Melena [K92.1] INVALID FOR* Priority: A More... IBD (inflammatory bowel disease) [K52.9] INVALID FOR* Priority: K More... Abdominal pain, other specified site [R10.9] INVALID FOR* Priority: I More... Anxiety [F41.9] INVALID FOR* Priority: K More... Urinary retention with incomplete bladder empty*INVALID FOR* Priority: C More... Hyponatremia [E87.1] INVALID FOR* More... GI bleeding [D62] INVALID FOR* Priority: B More... Anemia due to acute blood loss [D62] INVALID FOR* More... s/p left femoral endarterectomy/aortoiliac sten*INVALID FOR* Priority: A More... PVD (peripheral vascular disease) (HCC) [I73.9] INVALID FOR* More... Lupus anticoagulant disorder (HCC) [D68.62] INVALID FOR* More... Ulcerative colitis (HCC) [K51.90] INVALID FOR* Priority: G More... Smoker [F17.200] INVALID FOR* Priority: C More... Hematoma, postoperative [EAF7288] INVALID FOR*08/11/2014 Priority: C More... Lipoma of abdominal wall [D17.1] INVALID FOR* More... Ischaemic rest pain of lower extremity (HCC) [I*INVALID FOR* Illiterate [Z55.0] INVALID FOR* Pain in left shoulder [M25.512] INVALID FOR* More... Acute GI bleeding [K92.2] INVALID FOR* Priority: A More... Hypotension due to blood loss [I95.89] INVALID FOR* Priority: B More... Dysuria [R30.0] INVALID FOR* Priority: D More... Lipoma of back [D17.1] INVALID FOR* Seizure disorder (HCC) [G40.909] INVALID FOR*07/10/2017 Trigeminal neuralgia [G50.0] INVALID FOR* More... 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 Encounter Status:Closed by LEIDY FRANCISCO LPN on 02/20/18 RE-EVALUATION - PT (1) Observed: 02/14/2018 Status: F Source: [place] 12:38 PM [facility] REPOSITORY [facility] [place] [address] Fax REEVALUATION / MEDICARE RECERTIFICATION PHYSICAL THERAPY MR#: [id number] Acct: [id number] Name: MILES SIERRA Rep #: [id number] : 1950 67 From: Nidia Danielle PT, Cert. MDT Referring DrFlavio: Elisha Flowers MD Status: REG RCR Insurance: [facility] *IN NETWORK SELF PAY INSURANCE Elisha Flowers, It has been my pleasure to treat MILES SIERRA over the last 13 visits for Back Pain and Leg Weakness. Please see the progress note below for an update on the physical therapy plan of care! Subjective: PATIENT REPORTS SOMETHING IS MAKING HIS HIPS HURT AND HIS LEFT LEG IS HURTING MORE. HE ALSO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 2017 as patient doesn't recall receiving this - Continue PT as ordered - Follow up in 4 weeks or sooner if symptoms persist or worsen - Follow up with pain management as scheduled, suggest inquiring about hip injections. Ex- plans to attend appointment d/t medication changes as patient is unsure - Consider ortho consult if pain management unable to perform injections 2. Left hip pain - ICD9: 719.45, ICD10: M25.552 - Plan as above 3. Anticoagulation goal of INR 2 to 3 - ICD9: V58.83, V58.61, ICD10: Z51.81, Z79.01 - Reviewed INR with patient and ex- - INR 1.6 today, goal is 2-3 - Increase coumadin to 7.5mg daily except Mondays take only 5mg - Repeat INR in 1 week as scheduled Park Stevenson APRN.ACE Stevenson APRN.T[employer]ION WORKER 02/13/2018 1:33 PM Signed Please check at home or with Irwin to see if you have Meloxicam (Mobic). Start Ice to hip and back 2-3x a day. Continue Physical Therapy. Follow up with as scheduled and ask about possible injections. If he doesn't perform hip injections please notify office and we will send you to orthopedics. Referring Provider: SELF [[id number]] Allergies As of Date: 02/13/2018 (No Known Allergies) Date Reviewed: 02/13/2018 Reviewed by: John Joshi Ma - Fully Assessed Reason for Visit: left leg pain [Other] Primary Visit Diagnosis:Chronic bilateral low back pain with sciatica [M54.5, G89.29] Other Visit Diagnoses:Left hip pain [M25.552] Anticoagulation goal of INR 2 to 3 [Z51.81, Z79.01] Prescriptions as of 02/13/2018 Sig: GABAPENTIN 300 MG CAPSULE Take 1 capsule by mouth twice* HYDROCODONE 5 MG-ACETAMINOPHE* Take 1 tablet by mouth as dir* COMPOUNDED PRESCRIPTION BLOOD PRESSURE CUFF FOR HOME * HYDROXYZINE HCL 50 MG TABLET TAKE 1 TABLET BY MOUTH THREE * BUSPIRONE 10 MG TABLET TAKE 1 TABLET BY MOUTH THREE * COMPOUNDED PRESCRIPTION 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* MELOXICAM 7.5 MG TABLET TAKE 1 TABLET BY MOUTH DAILY * OMEPRAZOLE 40 MG CAPSULE,MATHEUS* 1 po qd while on prednisone ONDANSETRON HCL 8 MG TABLET Take 0.5 tablets by mouth dillon* WARFARIN 5 MG TABLET Take 1 tablet by mouth once d* SERTRALINE 50 MG TABLET Take 1 tablet by mouth once d* IPRATROPIUM-ALBUTEROL 0.5 MG-* Inhale 3 mL as instructed dillon* ALBUTEROL SULFATE HFA 90 MCG/* Inhale 2 Puffs as instructed * COMPOUNDED PRESCRIPTION 3 prong cane SENNOSIDES 8.6 MG TABLET Take 1 tablet by mouth daily * MIRTAZAPINE 15 MG TABLET Take 1 tablet by mouth daily * DIVALPROEX 250 MG TABLET,MATHEUS* Take 1 tablet by mouth twice * LORAZEPAM 0.5 MG TABLET Take 1 tablet by mouth twice * PANTOPRAZOLE 40 MG TABLET,DEL* Take 1 tablet by mouth daily * METOPROLOL TARTRATE 50 MG TAB* Take 1 tablet by mouth twice * SERTRALINE 100 MG TABLET Take 1 tablet by mouth once d* FINASTERIDE 5 MG TABLET Take 1 tablet by mouth once d* ATORVASTATIN 40 MG TABLET Take 1 tablet by mouth once d* CARBAMAZEPINE ER 200 MG TABLE* Take 1 tablet by mouth twice * TAMSULOSIN 0.4 MG CAPSULE Take 1 capsule by mouth once * COMPOUNDED PRESCRIPTION Hinged knee brace- right Re: * FLUTICASONE 250 MCG-SALMETERO* Inhale 1 Puff as instructed t* LEG BRACE Please use the brace daily in* PREDNISONE 20 MG TABLET Take 20 mg by mouth once dominick* ASPIRIN 81 MG TABLET,DELAYED * Take 81 mg by mouth once dominick* LIDOCAINE 4 % TOPICAL GEL Apply 1 Patch as directed dillon* FERROUS SULFATE 325 MG (65 MG* Take 325 mg by mouth daily wi* DOCUSATE SODIUM 100 MG CAPSULE Take 1 capsule by mouth twice* BLOOD PRESSURE MONITOR KIT Check bp 2 to 3x daily GABAPENTIN 600 MG TABLET Take 1 tablet by mouth four t* Patient not taking: Reported on 02/13/2018 Medication notes this encounter GABAPENTIN 300 MG CAPSULE >> John Joshi Ma 02/13/2018 12:53 PM >> JOHN JOSHI MA Feb 13, 2018 12:53 PM Prescribed by pain mgmt Dr. Flowers HYDROCODONE 5 MG-ACETAMINOPHEN 325 MG TABLET >> John Joshi Ma 02/13/2018 12:52 PM >> JOHN JOSHI MA Feb 13, 2018 12:52 PM Prescribed by pain mgmt Dr. 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 Hypertension [I10] Priority: D More... Hyperlipidemia [E78.5] INVALID FOR* Priority: E More... CAD (coronary artery disease) [I25.10] INVALID FOR* Priority: J More... COPD (chronic obstructive pulmonary disease) (H* Priority: C More... Tobacco use disorder [F17.200] More... Anxiety and depression [F41.9, F32.9] Priority: E More... Blindness of right eye [H54.40] Bilateral shoulder pain [M25.511, M25.512] INVALID FOR* Neck pain [M54.2] INVALID FOR* Chronic low back pain [M54.5, G89.29] INVALID FOR* Vertebral compression fracture [M48.50XA] INVALID FOR* Lumbar spondylosis [M47.816] INVALID FOR* Lumbar radiculopathy [M54.16] INVALID FOR* Rectal bleeding [K62.5] 11/13/2013 Ischemia of extremity [I99.8] INVALID FOR*02/10/2014 Priority: B More... Urinary retention [R33.9] INVALID FOR* Priority: E More... DISPOSITION AND FOLLOW-UP [V999.01] INVALID FOR* Priority: M More... Erythema of groin [L53.9] INVALID FOR*02/10/2014 Priority: B More... SUMMARY [V999.95] INVALID FOR* Priority: Very Severe More... Pain, postoperative, acute [G89.18] INVALID FOR*02/10/2014 Priority: B More... Thrombosis [I82.90] INVALID FOR*02/10/2014 Priority: A More... Anticoagulation goal of INR 2 to 3 [Z51.81, Z79*INVALID FOR* Priority: B More... Melena [K92.1] INVALID FOR* Priority: A More... IBD (inflammatory bowel disease) [K52.9] INVALID FOR* Priority: K More... Abdominal pain, other specified site [R10.9] INVALID FOR* Priority: I More... Anxiety [F41.9] INVALID FOR* Priority: K More... Urinary retention with incomplete bladder empty*INVALID FOR* Priority: C More... Hyponatremia [E87.1] INVALID FOR* More... GI bleeding [D62] INVALID FOR* Priority: B More... Anemia due to acute blood loss [D62] INVALID FOR* More... s/p left femoral endarterectomy/aortoiliac sten*INVALID FOR* Priority: A More... PVD (peripheral vascular disease) (HCC) [I73.9] INVALID FOR* More... Lupus anticoagulant disorder (HCC) [D68.62] INVALID FOR* More... Ulcerative colitis (HCC) [K51.90] INVALID FOR* Priority: G More... Smoker [F17.200] INVALID FOR* Priority: C More... Hematoma, postoperative [TQS3973] INVALID FOR*08/11/2014 Priority: C More... Lipoma of abdominal wall [D17.1] INVALID FOR* More... Ischaemic rest pain of lower extremity (HCC) [I*INVALID FOR* Illiterate [Z55.0] INVALID FOR* Pain in left shoulder [M25.512] INVALID FOR* More... Acute GI bleeding [K92.2] INVALID FOR* Priority: A More... Hypotension due to blood loss [I95.89] INVALID FOR* Priority: B More... Dysuria [R30.0] INVALID FOR* Priority: D More... Lipoma of back [D17.1] INVALID FOR* Seizure disorder (HCC) [G40.909] INVALID FOR*07/10/2017 Trigeminal neuralgia [G50.0] INVALID FOR* More... 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 Other instructions from your clinician: Please check at home or with [facility] to see if you have Meloxicam (Mobic). Start Ice to hip and back 2-3x a day. Continue Physical Therapy. Follow up with as scheduled and ask about possible injections. If he doesn't perform hip injections please notify office and we will send you to orthopedics. Encounter Status:Closed by PARK STEVENSON CNP on 02/13/18 PROGRESS Observed: 02/06/2018 Status: COMPLETED Source: [place] 5:01 PM [facility] RE[facility]IT[facility] HNO ID: [id number] Author: Demian Desai LPN Service: (none) Author Type: (none) Type: Progress Notes Filed: 02/06/2018 5:01 PM Note Text: Patient notified and verbalized understanding. Demian Desai LPN PROGRESS Observed: 02/06/2018 Status: COMPLETED Source: [place] 4:59 PM [facility] HNO ID: [id number] Author: Noemy Silva LPN Service: (none) Author Type: (none) Type: Progress Notes Filed: 02/06/2018 5:01 PM Note Text: Patient notified and scheduled for 1 week. PROGRESS Observed: 02/06/2018 Status: COMPLETED Source: [place] 4:51 PM [facility] REPOSITORY HNO ID: [id number] Author: Carlos Morton Service: (none) Author Type: Physician Type: Progress Notes Filed: 02/06/2018 5:01 PM Note Text: Cont the same for a week and recheck PROGRESS Observed: 02/06/2018 Status: COMPLETED Source: [place] 2:42 PM [facility] REPOSITORY HNO ID: [id number] Author: Irlanda Guadalupe RN Service: (none) Author Type: (none) Type: Progress Notes Filed: 02/06/2018 2:43 PM Note Text: patient had inr completed at [facility] patients inr is 1.5 (patients inr range is 2.0-3.0) patient is currently taking 5mg Mon,Fri and 7.5mg all other days patients last dose change was on 01/23/18 due to a high level of 3.1 (dose at that time was 7.5mg daily) patient has had no changes in medication except for coumadin and no missed doses and no change in diet Advised patient that they would be contacted regarding medication dose and when to follow up after information is reviewed by provider. After provider review please contact the patient with information and schedule follow up appointment with coumadin clinic. FYI -patient has been scheduled for a 1 week follow up inr on 02/21/18 CNOV Observed: 01/24/2018 Status: COMPLETED Source: [place] 2:30 PM [facility] REPOSITORY Office Visit (LALITA) MILES SIERRA ([id number]) 1950 M Date Time Provider Department 01/24/18 2:30 PM JOHN DIGGS During your visit today, we recorded the following information about you: Temperature Pulse Respiration Blood pressure 97.7 degrees 45/minute 18/minute 169/64 John Diggs MD 01/27/2018 3:17 PM Signed [facility] ESTABL[facility] PATIENT NOTE January 24, 2018 67 year old male for follow up 4 years s/p left fem endart/iliac stenting. Interval History: c/o neurogenic leg issues. No ischemic rest pain. Missed yearly f/u in Jun 2017. Meds include: coumadin, asa, statin Tob: Tobacco Use: .5 packs/day, for 50 years. Types: Cigarettes Physical Exam: 01/24/18 1323 BP: 169/64 Pulse: (!) 45 Resp: 18 Temp: 36.5 ?C (97.7 ?F) TempSrc: Temporal Artery SpO2: 99% On exam bilateral legs warm and perfused. No open lesions on either foot. Labs: Creatinine Date Value Ref Range Status 10/13/2017 0.83 0.73 - 1.22 mg/dL Final 03/22/2017 0.69 (L) 0.73 - 1.22 mg/dL Final 02/10/2016 0.88 0.70 - 1.40 mg/dL Final 02/09/2016 0.87 0.70 - 1.40 mg/dL Final Cholesterol, Total Date Value Ref Range Status 11/17/2017 143 <200 mg/dL Final Comment: <200 mg/dL, Desirable 200-239 mg/dL, Borderline high >239 mg/dL, High HDL Cholesterol Date Value Ref Range Status 11/17/2017 61 >39 mg/dL Final Comment: 40-59 mg/dL, Acceptable >59 mg/dL, High: Negative risk factor for coronary heart disease <40 mg/dL, Low: Positive risk factor for coronary heart disease LDL Cholesterol Date Value Ref Range Status 11/17/2017 56 <100 mg/dL Final Comment: <100 mg/dL, Optimal 100-129 mg/dL, Near optimal/above optimal 130-159 mg/dL, Borderline high 160-189 mg/dL, High >189 mg/dL, Very high Secondary prevention optimal LDL Cholesterol levels are recommended to be < 70 mg/dL Triglyceride Date Value Ref Range Status 11/17/2017 131 <150 mg/dL Final Comment: <150 mg/dL, Normal 150-199 mg/dL, Borderline high 200-499 mg/dL, High >499 mg/dL, Very high Glucose Date Value Ref Range Status 10/13/2017 81 74 - 99 mg/dL Final Comment: The [place] [employer] (ADA) provides guidance for cutoff values for fasting glucose and random glucose. The ADA defines fasting as no caloric intake for at least 8 hours. Fasting plasma glucose results between 100 to 125 mg/dL indicate increased risk for diabetes (prediabetes). Fasting plasma glucose results greater than or equal to 126 mg/dL meet the criteria for diagnosis of diabetes. In the absence of unequivocal hyperglycemia, results should be confirmed by repeat testing. In a patient with classic symptoms of hyperglycemia or hyperglycemic crisis, random plasma glucose results greater than or equal to 200 mg/dL meet the criteria for diagnosis of diabetes. Reference: Standards of Medical Care in Diabetes 2016, [place] [employer]. Diabetes Care. 2016.39(Suppl 1). Lab Results Component Value Date HBA1C 5.6 03/22/2017 HBA1C 5.9 07/31/2015 HBA1C 5.7 05/30/2014 Imaging studies: I have personally reviewed the following images/data: SRUTHI 1.0 right and 0.8 left. Unchanged from 1.5 years prior. Impression: 67yo male with stable leg arterial disease/AIOD but without limb threatening ischemia; this is NOT the etiology of his vague leg complaints which are likely neurogenic. Plan: No indication for further leg arterial intervention at this time. Long discussion with the patient. He is very difficult and given to arbitrarily creating his own explanations to explain his leg complaints. Understands need for best medical care and continued follow up for this problem including after any intervention/operation for it. Counseled regarding above and reviewed signs and symptoms of limb threatening ischemia at length. -continue coumadin and asa -continue statin with goal TC < 200, TG < 150, HDL > 40, LDL < 100/70 -blood pressure control. -blood sugar control with goal HgA1C < 6.5. -foot care including usage of properly fitting shoes. -needs tobacco cessation and avoid 2nd and 3rd hand smoke. -regular walking exercise with goal 30 minutes continuously @ 2-3mph for minimum 5 days/week. F/u 1 year with PVRs or sooner if issues. I spent more than 50% of the visit counseling the patient on the plan and treatment options. Face to Face time was 15 minutes. John Diggs M.D., F.A.C.S. Staff, Vascular Surgery January 24, 2018 2:04 PM Referring Provider: SELF [200] Allergies As of Date: 01/24/2018 (No Known Allergies) Date Reviewed: 01/24/2018 Reviewed by: Samreen Rosado Ma - Fully Assessed Reason for Visit: Established Patient [175] Primary Visit Diagnosis:s/p left femoral endarterectomy/aortoiliac stenting 10/2013 [I73.9] Prescriptions as of 01/24/2018 Sig: HYDROXYZINE HCL 50 MG TABLET TAKE 1 TABLET BY MOUTH THREE * BUSPIRONE 10 MG TABLET TAKE 1 TABLET BY MOUTH THREE * MELOXICAM 7.5 MG TABLET TAKE 1 TABLET BY MOUTH DAILY * OMEPRAZOLE 40 MG CAPSULE,MATHEUS* 1 po qd while on prednisone ONDANSETRON HCL 8 MG TABLET Take 0.5 tablets by mouth dillon* WARFARIN 5 MG TABLET Take 1 tablet by mouth once d* SERTRALINE 50 MG TABLET Take 1 tablet by mouth once d* ALBUTEROL SULFATE HFA 90 MCG/* Inhale 2 Puffs as instructed * SENNOSIDES 8.6 MG TABLET Take 1 tablet by mouth daily * MIRTAZAPINE 15 MG TABLET Take 1 tablet by mouth daily * GABAPENTIN 600 MG TABLET Take 1 tablet by mouth four t* DIVALPROEX 250 MG TABLET,MATHEUS* Take 1 tablet by mouth twice * LORAZEPAM 0.5 MG TABLET Take 1 tablet by mouth twice * PANTOPRAZOLE 40 MG TABLET,DEL* Take 1 tablet by mouth daily * METOPROLOL TARTRATE 50 MG TAB* Take 1 tablet by mouth twice * SERTRALINE 100 MG TABLET Take 1 tablet by mouth once d* FINASTERIDE 5 MG TABLET Take 1 tablet by mouth once d* ATORVASTATIN 40 MG TABLET Take 1 tablet by mouth once d* CARBAMAZEPINE ER 200 MG TABLE* Take 1 tablet by mouth twice * TAMSULOSIN 0.4 MG CAPSULE Take 1 capsule by mouth once * FLUTICASONE 250 MCG-SALMETERO* Inhale 1 Puff as instructed t* PREDNISONE 20 MG TABLET Take 20 mg by mouth once dominick* ASPIRIN 81 MG TABLET,DELAYED * Take 81 mg by mouth once dominick* LIDOCAINE 4 % TOPICAL GEL Apply 1 Patch as directed dillon* FERROUS SULFATE 325 MG (65 MG* Take 325 mg by mouth daily wi* DOCUSATE SODIUM 100 MG CAPSULE Take 1 capsule by mouth twice* COMPOUNDED PRESCRIPTION BLOOD PRESSURE CUFF FOR HOME * COMPOUNDED PRESCRIPTION 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 Hypertension [I10] Priority: D More... Hyperlipidemia [E78.5] INVALID FOR* Priority: E More... CAD (coronary artery disease) [I25.10] INVALID FOR* Priority: J More... COPD (chronic obstructive pulmonary disease) (H* Priority: C More... Tobacco use disorder [F17.200] More... Anxiety and depression [F41.9, F32.9] Priority: E More... Blindness of right eye [H54.40] Bilateral shoulder pain [M25.511, M25.512] INVALID FOR* Neck pain [M54.2] INVALID FOR* Chronic low back pain [M54.5, G89.29] INVALID FOR* Vertebral compression fracture [EGI7092] INVALID FOR* Lumbar spondylosis [M47.816] INVALID FOR* Lumbar radiculopathy [M54.16] INVALID FOR* Rectal bleeding [K62.5] 11/13/2013 Ischemia of extremity [I99.8] INVALID FOR*02/10/2014 Priority: B More... Urinary retention [R33.9] INVALID FOR* Priority: E More... DISPOSITION AND FOLLOW-UP [V999.01] INVALID FOR* Priority: M More... Erythema of groin [L53.9] INVALID FOR*02/10/2014 Priority: B More... SUMMARY [V999.95] INVALID FOR* Priority: Very Severe More... Pain, postoperative, acute [G89.18] INVALID FOR*02/10/2014 Priority: B More... Thrombosis [I82.90] INVALID FOR*02/10/2014 Priority: A More... Anticoagulation goal of INR 2 to 3 [Z51.81, Z79*INVALID FOR* Priority: B More... Melena [K92.1] INVALID FOR* Priority: A More... IBD (inflammatory bowel disease) [K52.9] INVALID FOR* Priority: K More... Abdominal pain, other specified site [R10.9] INVALID FOR* Priority: I More... Anxiety [F41.9] INVALID FOR* Priority: K More... Urinary retention with incomplete bladder empty*INVALID FOR* Priority: C More... Hyponatremia [E87.1] INVALID FOR* More... GI bleeding [D62] INVALID FOR* Priority: B More... Anemia due to acute blood loss [D62] INVALID FOR* More... s/p left femoral endarterectomy/aortoiliac sten*INVALID FOR* Priority: A More... PVD (peripheral vascular disease) ([facility]) [I73.9] INVALID FOR* More... Lupus anticoagulant disorder ([facility]) [D68.62] INVALID FOR* More... Ulcerative colitis ([facility]) [K51.90] INVALID FOR* Priority: G More... Smoker [F17.200] INVALID FOR* Priority: C More... Hematoma, postoperative [MHV1328] INVALID FOR*08/11/2014 Priority: C More... Lipoma of abdominal wall [D17.1] INVALID FOR* More... Ischaemic rest pain of lower extremity (HCC) [I*INVALID FOR* Illiterate [Z55.0] INVALID FOR* Pain in left shoulder [M25.512] INVALID FOR* More... Acute GI bleeding [K92.2] INVALID FOR* Priority: A More... Hypotension due to blood loss [I95.89] INVALID FOR* Priority: B More... Dysuria [R30.0] INVALID FOR* Priority: D More... Lipoma of back [D17.1] INVALID FOR* Seizure disorder ([facility]) [G40.909] INVALID FOR*07/10/2017 Trigeminal neuralgia [G50.0] INVALID FOR* More... 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 Medications Discontinued During This Encounter acetaminophen (TYLENOL) 325 mg tablet 0 02/09/2016 01/24/2018 Class: Med Update Route: ORAL Sig: Take 2 tablets by mouth every 4 hours as needed for Pain. Disc: Course of therapy completed fentaNYL (DURAGESIC) 50 mcg/hr 01/24/2018 Class: Historical Med Route: TRANSDERMAL Sig: Apply 1 Patch as directed every 72 hours. Disc: Course of therapy completed predniSONE (DELTASONE) 20 mg tablet 30 t* 0 11/17/2017 01/24/2018 Si po qd Disc: Course of therapy completed warfarin (JANTOVEN) 4 mg tablet 01/24/2018 Class: Historical Med Route: ORAL Sig: Take 4 mg by mouth daily as directed. Disc: Course of therapy completed Disposition: Return in about 1 year (around 01/24/2019). Follow-up and Disposition History Recorded Encounter Status:Closed by JOHN DIGGS MD on 01/27/18 PROGRESS Observed: 01/24/2018 Status: COMPLETED Source: [place] 2:03 PM [facility] RE[facility]IT[facility] O ID: [id number] Author: John Diggs Service: (none) Author Type: Physician Type: Progress Notes Filed: 01/27/2018 3:17 PM Note Text: [facility] ESTABL[facility] PATIENT NOTE January 24, 2018 67 year old male for follow up 4 years s/p left fem endart/iliac stenting. Interval History: c/o neurogenic leg issues. No ischemic rest pain. Missed yearly f/u in Jun 2017. Meds include: coumadin, asa, statin Tob: Tobacco Use: .5 packs/day, for 50 years. Types: Cigarettes Physical Exam: 01/24/18 1323 BP: 169/64 Pulse: (!) 45 Resp: 18 Temp: 36.5 ?C (97.7 ?F) TempSrc: Temporal Artery SpO2: 99% On exam bilateral legs warm and perfused. No open lesions on either foot. Labs: Creatinine Date Value Ref Range Status 10/13/2017 0.83 0.73 - 1.22 mg/dL Final 03/22/2017 0.69 (L) 0.73 - 1.22 mg/dL Final 02/10/2016 0.88 0.70 - 1.40 mg/dL Final 02/09/2016 0.87 0.70 - 1.40 mg/dL Final Cholesterol, Total Date Value Ref Range Status 11/17/2017 143 <200 mg/dL Final Comment: <200 mg/dL, Desirable 200-239 mg/dL, Borderline high >239 mg/dL, High HDL Cholesterol Date Value Ref Range Status 11/17/2017 61 >39 mg/dL Final Comment: 40-59 mg/dL, Acceptable >59 mg/dL, High: Negative risk factor for coronary heart disease <40 mg/dL, Low: Positive risk factor for coronary heart disease LDL Cholesterol Date Value Ref Range Status 11/17/2017 56 <100 mg/dL Final Comment: <100 mg/dL, Optimal 100-129 mg/dL, Near optimal/above optimal 130-159 mg/dL, Borderline high 160-189 mg/dL, High >189 mg/dL, Very high Secondary prevention optimal LDL Cholesterol levels are recommended to be < 70 mg/dL Triglyceride Date Value Ref Range Status 11/17/2017 131 <150 mg/dL Final Comment: <150 mg/dL, Normal 150-199 mg/dL, Borderline high 200-499 mg/dL, High >499 mg/dL, Very high Glucose Date Value Ref Range Status 10/13/2017 81 74 - 99 mg/dL Final Comment: The [place] [employer] (ADA) provides guidance for cutoff values for fasting glucose and random glucose. The ADA defines fasting as no caloric intake for at least 8 hours. Fasting plasma glucose results between 100 to 125 mg/dL indicate increased risk for diabetes (prediabetes). Fasting plasma glucose results greater than or equal to 126 mg/dL meet the criteria for diagnosis of diabetes. In the absence of unequivocal hyperglycemia, results should be confirmed by repeat testing. In a patient with classic symptoms of hyperglycemia or hyperglycemic crisis, random plasma glucose results greater than or equal to 200 mg/dL meet the criteria for diagnosis of diabetes. Reference: Standards of Medical Care in Diabetes 2016, [place] [employer]. Diabetes Care. 2016.39(Suppl 1). Lab Results Component Value Date HBA1C 5.6 03/22/2017 HBA1C 5.9 07/31/2015 HBA1C 5.7 05/30/2014 Imaging studies: I have personally reviewed the following images/data: SRUTHI 1.0 right and 0.8 left. Unchanged from 1.5 years prior. Impression: 67yo male with stable leg arterial disease/AIOD but without limb threatening ischemia; this is NOT the etiology of his vague leg complaints which are likely neurogenic. Plan: No indication for further leg arterial intervention at this time. Long discussion with the patient. He is very difficult and given to arbitrarily creating his own explanations to explain his leg complaints. Understands need for best medical care and continued follow up for this problem including after any intervention/operation for it. Counseled regarding above and reviewed signs and symptoms of limb threatening ischemia at length. -continue coumadin and asa -continue statin with goal TC < 200, TG < 150, HDL > 40, LDL < 100/70 -blood pressure control. -blood sugar control with goal HgA1C < 6.5. -foot care including usage of properly fitting shoes. -needs tobacco cessation and avoid 2nd and 3rd hand smoke. -regular walking exercise with goal 30 minutes continuously @ 2-3mph for minimum 5 days/week. F/u 1 year with PVRs or sooner if issues. I spent more than 50% of the visit counseling the patient on the plan and treatment options. Face to Face time was 15 minutes. John Diggs M.D., F.A.C.S. Staff, Vascular Surgery January 24, 2018 2:04 PM PROGRESS Observed: 01/23/2018 Status: COMPLETED Source: [place] 5:02 PM [facility] REPOSITORY HNO ID: [id number] Author: Leidy Francisco LPN Service: (none) Author Type: (none) Type: Progress Notes Filed: 01/23/2018 5:03 PM Note Text: Pt notified. PROGRESS Observed: 01/23/2018 Status: COMPLETED Source: [place] 4:56 PM [facility] REPOSITORY HNO ID: [id number] Author: Carlos Morton Service: (none) Author Type: Physician Type: Progress Notes Filed: 01/23/2018 5:03 PM Note Text: Take 5 mgs MF, 7.5 mgs on the rest of the days, Recheck in 2 weeks. PROGRESS Observed: 01/23/2018 Status: COMPLETED Source: [place] 3:11 PM [facility] REPOSITORY O ID: [id number] Author: Irlanda Guadalupe RN Service: (none) Author Type: (none) Type: Progress Notes Filed: 01/23/2018 3:13 PM Note Text: patient had inr completed at [facility] patients inr is 3.1 (patients inr range is 2.0-3.0) patient is currently taking 7.5mg daily patients last dose change was on 12/07/17 due to a low level of 1.3 (dose at that time was 5mg Tues,Mon and 7.5mg all other days) patient has had no changes in medication and no missed doses and no change in diet Advised patient that they would be contacted regarding medication dose and when to follow up after information is reviewed by provider. After provider review please contact the patient with information and schedule follow up appointment with coumadin clinic. FYI - patient has been scheduled for a 1 week follow up inr on 01/30/18 RE-EVALUATION - PT (1) Observed: 01/22/2018 Status: F Source: [place] 12:33 PM [facility] REPOSITORY [facility] [address] [place] [address]. [address] [place] [address] Fax REEVALUATION / MEDICARE RECERTIFICATION PHYSICAL THERAPY MR#: [id number] Acct: [id number] Name: MILES SIERRA Rep #: [id number] : 1950 67 From: Nidia Danielle PT, Cert. MDT Referring DrFlavio: Elisha Flowers MD Status: REG RCR Insurance: [facility] *IN NETWORK SELF PAY INSURANCE Elisha Flowers, It has been my pleasure to treat MILES SIERRA over the last 8 visits for Back Pain and Leg Weakness. Please see the progress note below for an update on the physical therapy plan of care! Subjective: PATIENT REPORTS THERAPY IS HELPING HIM. HE REPORTS IT IS HELPING HIS BACK AND LEGS GET STRONGER. PATIENT REPORTS HE SAW DR. FLOWERS December AND HE WANTS HIM TO DO SOME MORE PT BEFORE HAVING ANOTHER SHOT. LAST INJECITION WAS ABOUIT 2 MONTHS AGO. Objective/Function: PATIENT IS TOLERATING PT WELL AND WOULD BENEFIT FROM CONTINUE PT DUE TO MORE ROOM FOR IMPROVEMENT. RECOMMEND CONTINUED PT WITH FOCUS ON WRITTEN HEP. UPON EXAM, LUMBAR MVMT LOSS IS FOLLOWS: FLEX - MOD, EXT - LEE ANN, BERTA SG - LEE ANN. INCREASED KYPHOSIS. BERTA LE STRENGTH IS GROSSLY 4/5 WITH MMT'ING NOW EXEPT LEFT KNEE 4- /5 IN AVAILABLE ROM AND BERTA HIP EXT 4-/5. FULL BERTA KNEE EXT NOW WITH LEFT KNEE FLEX TO 110 DEG AND RIGHT 130 DEG IN SUPINE WITH A HEEL SLIDE. OTHERWISE - THERE ARE NO SIGNIFICANT CHANGES SINCE INITIAL EVAL. Plan Plan: CONT PT 2-3 TIMES A WEEK X 3-4 MORE WEEKS PER ORIG POC: Therapeutic exercises and activities to target BLE, core and low back strength, endurance, ROM and flexibility. Gait and balance training for improved mobility. Modalities and manual as needed to decrease pain and increase ROM. Incorporate HEP to promote maintainence and progression. PATIENT IS AGREEABLE. Goals Goal 1:: Patient will increase BLE strength grossly by 1 muscle grade for improved performance with functional activities Goal Time Frame: 4-6 Weeks Goal Progress: Progressing Goal 2:: Patient will increase core and low back strength grossly 1 muscle grade for improved posture Goal Time Frame: 6-8 Weeks Goal Progress: Progressing Goal 3:: Patient will increase bilateral hamstring flexibility by 5* for improved mobility Goal Time Frame: 4-6 Weeks Goal Progress: Progressing Goal 4:: Patient will tolerate therapeutic exercises and activities for 10 minutes without increase in low back or leg pain Goal Time Frame: 4-6 Weeks Goal Progress: Progressing Goal 5:: Patient will increase lumbar range of motion in all planes for improved mobility Goal Time Frame: 4-6 Weeks Goal Progress: Progressing Goal 6:: Patient will demonstrate fair dynamic standing balance to decrease risk of fall Goal Time Frame: 6-8 Weeks Goal Progress: Progressing Anticipated Interventions Patient/Client Instruction: Educate patient on: Condition, Plan of Care For the Purpose of:: To decrease pain, To increase ROM, To improve muscle performance and motor function, To improve ability to perform ADL's, To improve ability of physical actions for home/community/work/leisure, To increase flexibility/ROM, To improve endurance, To improve balance, To improve safety with gait Therapeutic Exercise to Include: Strength training, Endurance training, Balance training, Body mechanics, Postural training, Flexibilty training, Gait and locomotor training, Passive ROM, Active ROM, Dynamic Lumbar Stabilization For the Purpose of:: To decrease pain, To increase ROM Functional Training to Include: ADL Training, Gait training For the Purpose of:: To increase ROM, To improve muscle performance and motor function, To improve ability to perform ADL's, To improve ability of physical actions for home/community/work/leisure, To improve gait and locomotor functions For the Purpose of:: To decrease pain, To increase ROM Iontophoresis (with Dexamethozone, with Acetic acid): No For the Purpose of:: To decrease pain, To increase ROM Please do not hesitate to contact me at [phone] by phone or if you have questions or concerns regarding this new plan of care! Sincerely, Nidia Danielle <Electronically signed by Nidia Danielle PT, Cert. MDT> 01/22/18 1233 CC: Elisha Flowers MD; Carlos Morton MD MAURO Signed For Medicare only, by signing this I certify the plan of care. Physicians Signature Date PROGRESS Observed: 01/11/2018 Status: COMPLETED Source: [place] 1:06 PM [facility] REPOSITORY HNO ID: [id number] Author: Etta Dillon LPN Service: (none) Author Type: (none) Type: Progress Notes Filed: 01/11/2018 1:49 PM Note Text: Manual Readin/64 Pulse: 60 BP Harshad average: 132/66 P: 56 Repeat BP Check: 146/72 P55 #1 136/64 P55 #2 126/69 P57 #3 122/65 P55 #4 131/66 P57 #5 145/66 P58 #6 Reason for blood pressure check - Last BP elevated Patient is: Taking medication as prescribed Yes Took medication today Yes If no, date medication last taken N/A Experiencing side effects No BP was elevated at appt with Dr Flowers's office yesterday. Reports that he was having significant left leg pain at that time of appt. States that his BP was 165/135 at that time. Denies any chest pain. Does note shortness of breath with exertion (states that he is be wearing O2). Has dizziness with walking. Also has headaches 2-3/wk; does not treat with anything. Daily caffeine use. Current everyday tobacco use. Alert and oriented. Pt has been identified by name and birthdate: Yes Allergies reviewed: Yes Latex allergy: no. Medication - prescribed and OTC reviewed and updated: Yes Do you need any prescription refills prior to your next visit: No Health Maintenance: Reviewed and up to date Patient advised to continue with current medications and would be contacted with any further instructions after review by Dr consumer analyst. Etta Dillon LPN CNNURSE Observed: 01/11/2018 Status: COMPLETED Source: [place] 1:00 PM [facility] REPOSITORY Nurse Visit (FAMPWS) MILES SIERRA ([id number]) 1950 M Date Time Provider Department 01/11/18 1:00 PM [facility] During your visit today, we recorded the following information about you: Pulse Blood pressure 56/minute 132/66 Etta Dillon LPN 01/11/2018 1:49 PM Signed Manual Readin/64 Pulse: 60 BP Harshad average: 132/66 P: 56 Repeat BP Check: 146/72 P55 #1 136/64 P55 #2 126/69 P57 #3 122/65 P55 #4 131/66 P57 #5 145/66 P58 #6 Reason for blood pressure check - Last BP elevated Patient is: Taking medication as prescribed Yes Took medication today Yes If no, date medication last taken N/A Experiencing side effects No BP was elevated at appt with Dr Flowers's office yesterday. Reports that he was having significant left leg pain at that time of appt. States that his BP was 165/135 at that time. Denies any chest pain. Does note shortness of breath with exertion (states that he is be wearing O2). Has dizziness with walking. Also has headaches 2-3/wk; does not treat with anything. Daily caffeine use. Current everyday tobacco use. Alert and oriented. Pt has been identified by name and birthdate: Yes Allergies reviewed: Yes Latex allergy: no. Medication - prescribed and OTC reviewed and updated: Yes Do you need any prescription refills prior to your next visit: No Health Maintenance: Reviewed and up to date Patient advised to continue with current medications and would be contacted with any further instructions after review by consumer analyst. 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* MELOXICAM 7.5 MG TABLET TAKE 1 TABLET BY MOUTH DAILY * PREDNISONE 20 MG TABLET 2 po qd OMEPRAZOLE 40 MG CAPSULE,MATHEUS* 1 po qd while on prednisone ONDANSETRON HCL 8 MG TABLET Take 0.5 tablets by mouth dillon* WARFARIN 5 MG TABLET Take 1 tablet by mouth once d* SERTRALINE 50 MG TABLET Take 1 tablet by mouth once d* IPRATROPIUM-ALBUTEROL 0.5 MG-* Inhale 3 mL as instructed dillon* ALBUTEROL SULFATE HFA 90 MCG/* Inhale 2 Puffs as instructed * COMPOUNDED PRESCRIPTION 3 prong cane SENNOSIDES 8.6 MG TABLET Take 1 tablet by mouth daily * MIRTAZAPINE 15 MG TABLET Take 1 tablet by mouth daily * GABAPENTIN 600 MG TABLET Take 1 tablet by mouth four t* DIVALPROEX 250 MG TABLET,MATHEUS* Take 1 tablet by mouth twice * LORAZEPAM 0.5 MG TABLET Take 1 tablet by mouth twice * PANTOPRAZOLE 40 MG TABLET,DEL* Take 1 tablet by mouth daily * METOPROLOL TARTRATE 50 MG TAB* Take 1 tablet by mouth twice * SERTRALINE 100 MG TABLET Take 1 tablet by mouth once d* FINASTERIDE 5 MG TABLET Take 1 tablet by mouth once d* ATORVASTATIN 40 MG TABLET Take 1 tablet by mouth once d* CARBAMAZEPINE ER 200 MG TABLE* Take 1 tablet by mouth twice * TAMSULOSIN 0.4 MG CAPSULE Take 1 capsule by mouth once * COMPOUNDED PRESCRIPTION Hinged knee brace- right Re: * FLUTICASONE 250 MCG-SALMETERO* Inhale 1 Puff as instructed t* LEG BRACE Please use the brace daily in* PREDNISONE 20 MG TABLET Take 20 mg by mouth once dominick* ASPIRIN 81 MG TABLET,DELAYED * Take 81 mg by mouth once dominick* WARFARIN 4 MG TABLET Take 4 mg by mouth daily as d* LIDOCAINE 5 % TOPICAL PATCH Apply 1 Patch as directed dillon* ACETAMINOPHEN 325 MG TABLET Take 2 tablets by mouth every* FENTANYL 50 MCG/HR TRANSDERMA* Apply 1 Patch as directed dillon* FERROUS SULFATE 325 MG (65 MG* Take 325 mg by mouth daily wi* DOCUSATE SODIUM 100 MG CAPSULE Take 1 capsule by mouth twice* BLOOD PRESSURE MONITOR KIT Check bp 2 to 3x daily Problem List As Of Date 01/11/2018 Noted Resolved Headache [R51] INVALID FOR* Class: 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 Hypertension [I10] Priority: D More... Hyperlipidemia [E78.5] INVALID FOR* Priority: E More... CAD (coronary artery disease) [I25.10] INVALID FOR* Priority: J More... COPD (chronic obstructive pulmonary disease) (H* Priority: C More... Tobacco use disorder [F17.200] More... Anxiety and depression [F41.9, F32.9] Priority: E More... Blindness of right eye [H54.40] Bilateral shoulder pain [M25.511, M25.512] INVALID FOR* Neck pain [M54.2] INVALID FOR* Chronic low back pain [M54.5, G89.29] INVALID FOR* Vertebral compression fracture [FZO0687] INVALID FOR* Lumbar spondylosis [M47.816] INVALID FOR* Lumbar radiculopathy [M54.16] INVALID FOR* Rectal bleeding [K62.5] 11/13/2013 Ischemia of extremity [I99.8] INVALID FOR*02/10/2014 Priority: B More... Urinary retention [R33.9] INVALID FOR* Priority: E More... DISPOSITION AND FOLLOW-UP [V999.01] INVALID FOR* Priority: M More... Erythema of groin [L53.9] INVALID FOR*02/10/2014 Priority: B More... SUMMARY [V999.95] INVALID FOR* Priority: Very Severe More... Pain, postoperative, acute [G89.18] INVALID FOR*02/10/2014 Priority: B More... Thrombosis [I82.90] INVALID FOR*02/10/2014 Priority: A More... Anticoagulation goal of INR 2 to 3 [Z51.81, Z79*INVALID FOR* Priority: B More... Melena [K92.1] INVALID FOR* Priority: A More... IBD (inflammatory bowel disease) [K52.9] INVALID FOR* Priority: K More... Abdominal pain, other specified site [R10.9] INVALID FOR* Priority: I More... Anxiety [F41.9] INVALID FOR* Priority: K More... Urinary retention with incomplete bladder empty*INVALID FOR* Priority: C More... Hyponatremia [E87.1] INVALID FOR* More... GI bleeding [D62] INVALID FOR* Priority: B More... Anemia due to acute blood loss [D62] INVALID FOR* More... s/p left femoral endarterectomy/aortoiliac sten*INVALID FOR* Priority: A More... PVD (peripheral vascular disease) (HCC) [I73.9] INVALID FOR* More... Lupus anticoagulant disorder (HCC) [D68.62] INVALID FOR* More... Ulcerative colitis (HCC) [K51.90] INVALID FOR* Priority: G More... Smoker [F17.200] INVALID FOR* Priority: C More... Hematoma, postoperative [PVA4247] INVALID FOR*08/11/2014 Priority: C More... Lipoma of abdominal wall [D17.1] INVALID FOR* More... Ischaemic rest pain of lower extremity (HCC) [I*INVALID FOR* Illiterate [Z55.0] INVALID FOR* Pain in left shoulder [M25.512] INVALID FOR* More... Acute GI bleeding [K92.2] INVALID FOR* Priority: A More... Hypotension due to blood loss [I95.89] INVALID FOR* Priority: B More... Dysuria [R30.0] INVALID FOR* Priority: D More... Lipoma of back [D17.1] INVALID FOR* Seizure disorder (HCC) [G40.909] INVALID FOR*07/10/2017 Trigeminal neuralgia [G50.0] INVALID FOR* More... 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 Encounter Status:Closed by ETTA DILLON LPN on 01/11/18 URINE DRUG SCREEN Collected: 01/10/2018 Status: F Source: [place] (VIST[place]) 1:44 PM [facility] REPOSITORY Order Comment: List of Drugs Taken or Suspected? UNK TYPE CODE TESTS RESULT OUT OF RANGE REFERENCE UNITS LAB L505.0075 TO BE Normal CONFIRMED Result Comment: CONFIRMATORY TESTING FOR ALL POSITIVE URINE DRUG SCREEN RESULTS WILL ONLY BE SENT OUT UPON PHYSICIAN ORDER. VISTA Urine Drug Screen methods provide only preliminary analytical test results. A more specific alternate chemical method must be used in order to obtain a confirmed analytical result. Gas chromatography/mass spectrometery (GC/MS) is the preferred confirmatory method. Clinical consideration and professional judgement should be applied to any drug of abuse test result, particularly when preliminary positive results are used. URINE TCA TESTING MUST BE ORDERED SEPARATELY. USE TEST MNEMONIC: [facility] LAB L505.5005 VISTA UDS PH 6 Normal LAB L505.5015 <1000 ng/mL AMPHETAMINES Normal NEGATIVE LAB L505.5025 < 200 ng/mL BARBITIURATES Normal NEGATIVE LAB L505.5035 < 200 ng/mL BENZODIAZIPINE Normal NEGATIVE LAB L505.5045 < 300 ng/mL COCAINE Normal NEGATIVE LAB L505.5055 < 500 ng/mL ECSTACY Normal NEGATIVE LAB L505.5065 < 300 ng/mL METHADONE Normal NEGATIVE LAB L505.5075 < 300 High ng/mL OPIATES POSITIVE LAB L505.5085 < 25 ng/mL PCP Normal NEGATIVE LAB L505.5095 < 50 ng/mL THC Normal NEGATIVE Performed By: #### L505.5000 #### [facility] [address] [place], [address] MISCELLANEOUS LAB Collected: 01/10/2018 Status: F Source: [place] PROCEDURE 1:44 PM [facility] REPOSITORY Order Comment: Test(s) Ordered: #[id number] URINE TOX RUN LOWEST TEST TYPE CODE TESTS RESULT OUT OF RANGE REFERENCE UNITS LAB L801.1541 Normal [facility] TEST Result Comment: [id number] 6+OXYCODONE-BUND (ng/mL) DRUG RESULT SCREEN CUTOFF ____ Amphetamines,Urine Negative ng/mL 1000 Amphetamine test includes Amphetamine and Methamphetamine. Barbiturates Negative ng/mL 200 Benzodiazepines Negative ng/mL 200 Cannabinoid Negative ng/mL 20 Cocaine (Metab) Negative ng/mL 300 Opiates POSITIVE ng/mL 300 Opiates test includes Codeine, Morphine, Hydromorphone, Hydrocodone. Please Note: Confirmation performed by Mass Spectrometry Codeine Negative 300 Morphine Negative 300 Hydromorphone Positive Hydromorphone Confirm 531 ng/mL 300 Hydrocodone Positive Hydrocodone Confirm >3000 ng/mL 300 Oxycodone/Oxymorphone,Urine Negative ng/mL 300 Test includes Oxydodone and Oxymorphone. TESTING PERFORMED AT [facility]. ORIGINAL REPORT ON FILE IN LAB CONTAINS ADDITIONAL TEST SITE INFORMATION. Performed By: #### L801.1541 #### [facility] [address] [place], [address] PROGRESS Observed: 12/28/2017 Status: COMPLETED Source: [place] 12:37 PM [facility] REPOSITORY HNO ID: [id number] Author: Carlos Morton Service: (none) Author Type: Physician Type: Progress Notes Filed: 12/28/2017 12:58 PM Note Text: agree PROGRESS Observed: 12/28/2017 Status: COMPLETED Source: [place] 9:45 AM [facility] REPOSITORY [facility] ID: [id number] Author: Irlanda Guadalupe RN Service: (none) Author Type: (none) Type: Progress Notes Filed: 12/28/2017 9:46 AM Note Text: patient had inr completed at [facility] patients inr is 3.0 (patients inr range is 2.0-3.0) patient is currently taking 7.5mg daily patients last dose change was on 12/07/17 due to a low level of 1.3 (dose at that time was 5mg Tues,Fri and 7.5mg all other days) patient has had no changes in medication and no missed doses and no change in diet Advised patient to continue on the same dose(s) and that they would only be contacted regarding dosage and follow up instructions after review with provider, if a change is needed. Written instructions given and patient verbalized understanding. Presently scheduled in 2 weeks (01/18/18) for follow up INR. INITAL EVALUATION (1) Observed: 12/18/2017 Status: F Source: [place] - PT 8:51 AM [facility] REPOSITORY [facility] [place] [address] Fax REHABILITATION SERVICES INITIAL EVALUATION MR#: [id number] Acct: [id number] Name: MILES SIERRA Rep #: [id number] : 1950 67 From: Marnie Martines PT Referring Dr.: Elisha Flowers MD Status: REG RCR Insurance: [facility] *IN NETWORK SELF PAY INSURANCE Patient's Visit Information MILES SIERRA is a 67 year old M referred to Physical Therapy by Elisha Flowers with a diagnosis of Back Pain and Leg Weakness. Date of Evaluation: 12/18/17 Physical Therapist: Marnie Martines, PT - Visit Plan Frequency: 2x /Week Duration: 4 Weeks Plan: Therapeutic exercises and activities to target BLE, core and low back strength, endurance, ROM and flexibility. Gait and balance training for improved mobility. Modalities and manual as needed to decrease pain and increase ROM. Incorporate HEP to promote maintainence and progression. - Subjective Subjective: Piero Patient presents in therapy today with chief complaint of low back pain and left leg weakness that started about a week ago and states it is due to the heat. He reports he went to the ER on Monday and was given pain medication. He ambulates with a standard cane in right hand and reports frequent falls >10 over the past year. He lives alone and does all of the house work; lives in a mobile home. He has difficult raising his left leg to get in/out of car, walking, standing. Reports at times his hips hurt so bad that it feels like his legs are going to get out. He gets short winded easily with activities. At times he has to use his rollator. At times he has numbness or tingling down legs but not consistent. Has stents in LLE. He is taking a pain pill to help relieve pain and reports that pain is best when he is sitting in recliner. Has had x-ray and MRI but not at most recent physician visit - Pain low back Pain Intensity (Out of 10): 6 Pain Intensity Range: 4, 9 Comment: worsen with activity LLE Pain Intensity (Out of 10): 3 - Objective Posture: Sitting slouched, unsupported in chair with increased posterior pelvic tilt; Static standing weight shifted to RLE. Appearance: Patient has lift in left shoe due to leg length difference; kyphotic thoracic posturing in standing. Sensation: Intact to light touch. Palpation: Tenderness to palpation along bilateral paraspinals with increase in tingling when palpating along R L1-L3 area; Pain to palpation along T10 area. Gait: Patient ambulating with reciprical gait pattern with cane in RUE. He displays decrease stance time on LLE and weight shifted to RLE; mild hip drop bilaterally. Strength: RLE grossly 4/5 and LLE grossly 4-/5 except left knee extension 3+/5, bilateraly hip abduction 4-/5 and bilateral hip extension 3+/5; low back strength grossly 4-/5 and core strength grossly 3/5. ROM: WFL BLE except L hip flexion secondary to stents; mild limitation lumbar flexion and rotation bilaterally (L rotation with increase pain), moderate tightness lumbar extension and sidebending bilaterally with increase restriction R compared to L. Flexibility: Mild tightness bilateral hamstrings -15* knee extension bilaterally. Balance displays poor dynamic standing balance and fair+ static standing balance - Goals Goal 1:: Patient will increase BLE strength grossly by 1 muscle grade for improved performance with functional activities Goal Time Frame: 4-6 Weeks Goal 2:: Patient will increase core and low back strength grossly 1 muscle grade for improved posture Goal Time Frame: 6-8 Weeks Goal 3:: Patient will increase bilateral hamstring flexibility by 5* for improved mobility Goal Time Frame: 4-6 Weeks Goal 4:: Patient will tolerate therapeutic exercises and activities for 10 minutes without increase in low back or leg pain Goal Time Frame: 4-6 Weeks Goal 5:: Patient will increase lumbar range of motion in all planes for improved mobility Goal Time Frame: 4-6 Weeks Goal 6:: Patient will demonstrate fair dynamic standing balance to decrease risk of fall Goal Time Frame: 6-8 Weeks - Rehabilitation Potential Physical Therapy Diagnosis: Muscle Weakness, Impaired Gait Rehabilitation Potential: Fair - Anticipated Interventions Patient/Client Instruction: Educate patient on: Condition, Plan of Care For the Purpose of:: To decrease pain, To increase ROM, To improve muscle performance and motor function, To improve ability to perform ADL's, To improve ability of physical actions for home/community/work/leisure, To increase flexibility/ROM, To improve endurance, To improve balance, To improve safety with gait Therapeutic Exercise to Include: Strength training, Endurance training, Balance training, Body mechanics, Postural training, Flexibilty training, Gait and locomotor training, Passive ROM, Active ROM, Dynamic Lumbar Stabilization For the Purpose of:: To decrease pain, To increase ROM Functional Training to Include: ADL Training, Gait training For the Purpose of:: To increase ROM, To improve muscle performance and motor function, To improve ability to perform ADL's, To improve ability of physical actions for home/community/work/leisure, To improve gait and locomotor functions For the Purpose of:: To decrease pain, To increase ROM Iontophoresis (with Dexamethozone, with Acetic acid): No For the Purpose of:: To decrease pain, To increase ROM Thank you for the opportunity to evaluate your patient. For Medicare and Medicare HMO plans, please review the plan of care and approve it. It will need to be FAXED BACK to us at [phone] for Medicare purposes. Please let me know if there are questions or concerns regarding this plan of care. Physician Signature: Date: <Electronically signed by Marnie Martines PT> 12/18/17 0851 CC: Elisha Flowers MD; Carlos Morton MD WONG Signed For Medicare only, by signing this I certify the plan of care. Physicians Signature Date EMERGENCY DEPARTMENT Observed: 12/14/2017 Status: F Source: [place] SUMMARY 8:40 PM [facility] REPOSITORY [facility] Medical Records Department [address] [place] [address] Emergency Department Summary 12/14/17 1706 MR#: [id number] Acct: [id number] Name: MILES SIERRA Rep #: [id number] : 1950 67 From: Ana Solano MD PCP: Carlos Morton MD Status: DEP ER - ER Visit Summary Date of Service: 12/14/17 Chief Complaint: Left thigh pain History of Present Illness: The patient is a 67 M presenting with left thigh pain. Patient is a poor historian. He states this has been ongoing for several years. Patient had right leg pain last week and was seen in the ED at that time. He was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 GABAPENTIN 600 MG TABLET Take 1 tablet by mouth four t* DIVALPROEX 250 MG TABLET,MATHEUS* Take 1 tablet by mouth twice * LORAZEPAM 0.5 MG TABLET Take 1 tablet by mouth twice * PANTOPRAZOLE 40 MG TABLET,DEL* Take 1 tablet by mouth daily * METOPROLOL TARTRATE 50 MG TAB* Take 1 tablet by mouth twice * SERTRALINE 100 MG TABLET Take 1 tablet by mouth once d* FINASTERIDE 5 MG TABLET Take 1 tablet by mouth once d* ATORVASTATIN 40 MG TABLET Take 1 tablet by mouth once d* CARBAMAZEPINE ER 200 MG TABLE* Take 1 tablet by mouth twice * TAMSULOSIN 0.4 MG CAPSULE Take 1 capsule by mouth once * COMPOUNDED PRESCRIPTION Hinged knee brace- right Re: * FLUTICASONE 250 MCG-SALMETERO* Inhale 1 Puff as instructed t* LEG BRACE Please use the brace daily in* PREDNISONE 20 MG TABLET Take 20 mg by mouth once dominick* ASPIRIN 81 MG TABLET,DELAYED * Take 81 mg by mouth once dominick* WARFARIN 4 MG TABLET Take 4 mg by mouth daily as d* LIDOCAINE 5 % TOPICAL PATCH Apply 1 Patch as directed dillon* ACETAMINOPHEN 325 MG TABLET Take 2 tablets by mouth every* FENTANYL 50 MCG/HR TRANSDERMA* Apply 1 Patch as directed dillon* FERROUS SULFATE 325 MG (65 MG* Take 325 mg by mouth daily wi* DOCUSATE SODIUM 100 MG CAPSULE Take 1 capsule by mouth twice* BLOOD PRESSURE MONITOR KIT Check bp 2 to 3x daily Problem List As Of Date 12/12/2017 Noted Resolved Headache [R51] INVALID FOR* Class: 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 Hypertension [I10] Priority: D More... Hyperlipidemia [E78.5] INVALID FOR* Priority: E More... CAD (coronary artery disease) [I25.10] INVALID FOR* Priority: J More... COPD (chronic obstructive pulmonary disease) (H* Priority: C More... Tobacco use disorder [F17.200] More... Anxiety and depression [F41.9, F32.9] Priority: E More... Blindness of right eye [H54.40] Bilateral shoulder pain [M25.511, M25.512] INVALID FOR* Neck pain [M54.2] INVALID FOR* Chronic low back pain [M54.5, G89.29] INVALID FOR* Vertebral compression fracture [M48.50XA] INVALID FOR* Lumbar spondylosis [M47.816] INVALID FOR* Lumbar radiculopathy [M54.16] INVALID FOR* Rectal bleeding [K62.5] 11/13/2013 Ischemia of extremity [I99.8] INVALID FOR*02/10/2014 Priority: B More... Urinary retention [R33.9] INVALID FOR* Priority: E More... DISPOSITION AND FOLLOW-UP [V999.01] INVALID FOR* Priority: M More... Erythema of groin [L53.9] INVALID FOR*02/10/2014 Priority: B More... SUMMARY [V999.95] INVALID FOR* Priority: Very Severe More... Pain, postoperative, acute [G89.18] INVALID FOR*02/10/2014 Priority: B More... Thrombosis [I82.90] INVALID FOR*02/10/2014 Priority: A More... Anticoagulation goal of INR 2 to 3 [Z51.81, Z79*INVALID FOR* Priority: B More... Melena [K92.1] INVALID FOR* Priority: A More... IBD (inflammatory bowel disease) [K52.9] INVALID FOR* Priority: K More... Abdominal pain, other specified site [R10.9] INVALID FOR* Priority: I More... Anxiety [F41.9] INVALID FOR* Priority: K More... Urinary retention with incomplete bladder empty*INVALID FOR* Priority: C More... Hyponatremia [E87.1] INVALID FOR* More... GI bleeding [D62] INVALID FOR* Priority: B More... Anemia due to acute blood loss [D62] INVALID FOR* More... s/p left femoral endarterectomy/aortoiliac sten*INVALID FOR* Priority: A More... PVD (peripheral vascular disease) (HCC) [I73.9] INVALID FOR* More... Lupus anticoagulant disorder (HCC) [D68.62] INVALID FOR* More... Ulcerative colitis (HCC) [K51.90] INVALID FOR* Priority: G More... Smoker [F17.200] INVALID FOR* Priority: C More... Hematoma, postoperative [[id number]] INVALID FOR*08/11/2014 Priority: C More... Lipoma of abdominal wall [D17.1] INVALID FOR* More... Ischaemic rest pain of lower extremity (HCC) [I*INVALID FOR* Illiterate [Z55.0] INVALID FOR* Pain in left shoulder [M25.512] INVALID FOR* More... Acute GI bleeding [K92.2] INVALID FOR* Priority: A More... Hypotension due to blood loss [I95.89] INVALID FOR* Priority: B More... Dysuria [R30.0] INVALID FOR* Priority: D More... Lipoma of back [D17.1] INVALID FOR* Seizure disorder (HCC) [G40.909] INVALID FOR*07/10/2017 Trigeminal neuralgia [G50.0] INVALID FOR* More... 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 Prescriptions ordered this encounter Disp Refills Start End COMPOUNDED PRESCRIPTION 1 Ea* 2 12/12/2017 Class: Print RX Sig: Aerosol supplies Dx:J44.1 NPI#[id number] Medications Discontinued During This Encounter COMPOUNDED PRESCRIPTION 1 Ea* 2 10/01/2015 12/12/2017 Class: Print RX Sig: Aerosol supplies Dx:J44.1 NPI#[id number] Disc: Reason for discontinue is not on file. Encounter Status:Closed by CARLOS MORTON MD on 12/12/17 EMERGENCY DEPARTMENT Observed: 12/10/2017 Status: F Source: [place] SUMMARY 11:58 PM [facility] REPOSITORY [facility] Medical Records Department [address] [place] [id number] Emergency Department Summary 12/10/17 1607 MR#: [id number] Acct: [id number] Name: MILES SIERRA Rep #: [id number] : 1950 67 From: Perfecto Tapia MD PCP: Carlos Morton MD Status: DEP ER - ER Visit Summary Date of Service: 12/10/17 Chief Complaint: Right leg pain History of Present Illness: The patient is a 67 M right calf pain for 16 weeks. He is not sure what brought this on. He can feel a lump. His PCP thought that it would resolve on its own. He presents today for continued symptoms and pain. He denies any other associated symptoms like shortness of breath or chest pain. Denies any new weakness or numbness in his leg. Denies any skin changes. Physical Examination: Vital signs unremarkable. Patient is alert and oriented. No acute distress. Sitting and breathing comfortably. Inspection is unremarkable. He is neurovascularly intact distally. Moves all extremities. Good range of motion. Good strength and sensation. He does have a soft palpable cord running transversely over his mid right calf. Test Results: Ultrasound not available at this time. Emergency Department Course and Treatment: Patient likely has an SVT or hematoma. I would like to get an ultrasound, but it is not available. He is on anticoagulation. I have low suspicion for DVT. I will arrange for an outpatient ultrasound. He was treated with pain medicine here. Follow-up with his pain doctor. Return for any new or worsening issues. Treatment Plan: As above Disposition: Discharge Impression: 1. Right calf pain This note was generated with Silvercar dictation software. It may contain incorrect words, spelling, and punctuation that were not noted in review of the chart prior to signing ED Disposition - Plan for ED Patient: Chief Complaint: Lower Extremity Injury Referrals: Carlos Morton MD [Primary Care Provider] - What to do if you have Problems For any increased pain, shortness of breath, bleeding, nausea or vomiting, chest pain, or any unexpected problems, contact your Primary Care Provider. Call [facility] ([phone]) or report to the closest Emergency Room. Call 911 if necessary. 12/10/17 7999 <Electronically signed by Perfecto Tapia MD> Date Perfecto Tapia MD Cosigner Signature (If Indicated): Date CC: Carlos Morton MD DISCHARGE INSTRUCTION Observed: 12/10/2017 Status: F Source: [place] 11:58 PM [facility] REPOSITORY [facility] Medical Records Department [address] [place] [address] Discharge Instruction 12/10/17 1612 MR#: [id number] Acct: [id number] Name: MILES SIERRA Rep #: [id number] : 1950 67 From: Perfecto Tapia MD PCP: Carlos Morton MD Status: DEP ER ED Disposition - Plan for ED Patient: Chief Complaint: Lower Extremity Injury Instructions: Possible Causes of Low Back or Leg Pain Referrals: Carlos Morton MD [Primary Care Provider] - What to do if you have Problems For any increased pain, shortness of breath, bleeding, nausea or vomiting, chest pain, or any unexpected problems, contact your Primary Care Provider. Call [facility] ([phone]) or report to the closest Emergency Room. Call 911 if necessary. 12/10/17 9376 <Electronically signed by Perfecto Tapia MD> Date Perfecto Tapia MD Cosigner Signature (If Indicated): Date CC: Carlos Morton MD PROGRESS Observed: 12/08/2017 Status: COMPLETED Source: [place] 8:38 AM [facility] [place] REPOSITORY HNO ID: [id number] Author: Irlanda Guadalupe RN Service: (none) Author Type: (none) Type: Progress Notes Filed: 12/08/2017 8:39 AM Note Text: per written order by dr montenegro patient is to take 7.5mg daily PATIENT NOTIFIED OF INFORMATION PROGRESS Observed: 12/07/2017 Status: COMPLETED Source: [place] 3:46 PM [facility] REPOSITORY HNO ID: [id number] Author: Irlanda Guadalupe RN Service: (none) Author Type: (none) Type: Progress Notes Filed: 12/07/2017 3:48 PM Note Text: patient had inr completed at [facility] patients inr is 1.3 (patients inr range is 2.0-3.0) patient is currently taking 5mg Tues,Fri and 7.5mg all other days patients last dose change was on 11/30/17 due to a low level of 1.4 (dose at that time was 5mg Tues,Thur,Sun and 7.5mg all other days) patient has had no changes in medication except for coumadin and no missed doses and no change in diet Advised patient that they would be contacted regarding medication dose and when to follow up after information is reviewed by provider. After provider review please contact the patient with information and schedule follow up appointment with coumadin clinic. FYI - patient has been scheduled for a 1 week follow up inr on 12/14/17 MRA CAROTID WO IVCON Observed: 12/04/2017 Status: F Source: [place] 4:05 PM [facility] REPOSITORY * * *Final Report* * * DATE OF EXAM: Dec 04 2017 4:05PM [facility] 0275 - MRA CAROTID WO IVCON / PROCEDURE REASON: Unspecified atherosclerosis * * * * Physician Interpretation * * * * EXAMINATION: MRI BRAIN WO/W IVCON, MRA CAROTID WO IVCON CLINICAL HISTORY: Other headache syndrome. Left-sided headaches and left blurred vision. TECHNIQUE: Extracranial mass protocol with and without gadolinium with axial diffusion and gradient echo imaging. Intracranial 3D cvow-vd-veenrt MRA with 2D multiplanar and 3D maximum intensity projections calculated on the imaging workstation under physician supervision. MQ: MRAB_3 Contrast: IV administration of 14 ml of Dotarem COMPARISON: 07/26/2017 RESULT: BRAIN: Acute Change: There is no evidence of restricted diffusion to suggest an acute infarct. Hemorrhage: No evidence of prior parenchymal hemorrhage on the gradient echo images. Mass Lesion/ Mass Effect: No evidence of an intracranial mass or extra-axial fluid collection with the exception of a small arachnoid cyst in the ventral medial aspect of the left middle cranial fossa that is stable in appearance.. No abnormal parenchymal or leptomeningeal enhancement is appreciated otherwise following gadolinium administration No significant mass effect. Chronic Change: Moderate patchy and confluent hyperintensity is again noted in the supratentorial white matter on FLAIR and T2 which is nonspecific but likely represents chronic microvascular ischemia in view of the patient's chronologic age. Small remote cortical infarcts are again noted along the inferior aspect of left cerebellar hemisphere. Parenchyma: Mild generalized parenchymal volume loss is again noted. The brain parenchyma is otherwise within normal limits of signal intensity and morphology. Ventricles: Mild enlargement commensurate with volume loss. No significant change. Skull Base: Hypothalamic and pituitary region are grossly normal. Craniocervical junction is normal. No significant marrow replacement process. Vasculature: A normal flow void is noted in the major dural venous sinuses suggesting patency by spin echo criteria. Other: Minimal mucosal thickening in the anterior ethmoid air cells. Prior right cataract surgery. EXTRACRANIAL MRA: Carotid Stenosis: Right Common: No significant stenosis. Right Internal Plaque: Short segment mild eccentric plaque formation in the proximal right ICA. Severe stenosis at the right ECA origin. Right Internal Carotid Stenosis (% by NASCET Criteria): 26 Left Common: No significant stenosis. Left Internal Carotid Plaque: Short segment mild eccentric plaque formation in the proximal left ICA Left Internal Carotid Stenosis (% by NASCET Criteria): 11 Cervical Vertebral Arteries: Patency: Bilateral Dominance: Right IMPRESSION: Small remote cerebellar cortical infarcts and moderate chronic supratentorial microvascular ischemic changes without evidence of an acute intracranial process. No significant stenosis in either carotid bifurcation by NASCET criteria. Patent cervical vertebral arteries. Bottle Gauger: SHANELL Transcribe Date/Time: Dec 04 2017 4:12P Dictated by : АНДРЕЙ MAURICIO MD This examination was interpreted and the report reviewed and electronically signed by: АНДРЕЙ MAURICIO MD on Dec 04 2017 4:21PM EST [id number] MRI BRAIN WO/W Observed: 12/04/2017 Status: F Source: [place] IVCON 4:05 PM [facility] REPOSITORY * * *Final Report* * * DATE OF EXAM: Dec 04 2017 4:05PM [facility] 0295 - MRI BRAIN WO/W IVCON / PROCEDURE REASON: Other headache syndrome * * * * Physician Interpretation * * * * EXAMINATION: MRI BRAIN WO/W IVCON, MRA CAROTID WO IVCON CLINICAL HISTORY: Other headache syndrome. Left-sided headaches and left blurred vision. TECHNIQUE: Extracranial mass protocol with and without gadolinium with axial diffusion and gradient echo imaging. Intracranial 3D akfo-gc-breuuk MRA with 2D multiplanar and 3D maximum intensity projections calculated on the imaging workstation under physician supervision. MQ: MRAB_3 Contrast: IV administration of 14 ml of Dotarem COMPARISON: 07/26/2017 RESULT: BRAIN: Acute Change: There is no evidence of restricted diffusion to suggest an acute infarct. Hemorrhage: No evidence of prior parenchymal hemorrhage on the gradient echo images. Mass Lesion/ Mass Effect: No evidence of an intracranial mass or extra-axial fluid collection with the exception of a small arachnoid cyst in the ventral medial aspect of the left middle cranial fossa that is stable in appearance.. No abnormal parenchymal or leptomeningeal enhancement is appreciated otherwise following gadolinium administration No significant mass effect. Chronic Change: Moderate patchy and confluent hyperintensity is again noted in the supratentorial white matter on FLAIR and T2 which is nonspecific but likely represents chronic microvascular ischemia in view of the patient's chronologic age. Small remote cortical infarcts are again noted along the inferior aspect of left cerebellar hemisphere. Parenchyma: Mild generalized parenchymal volume loss is again noted. The brain parenchyma is otherwise within normal limits of signal intensity and morphology. Ventricles: Mild enlargement commensurate with volume loss. No significant change. Skull Base: Hypothalamic and pituitary region are grossly normal. Craniocervical junction is normal. No significant marrow replacement process. Vasculature: A normal flow void is noted in the major dural venous sinuses suggesting patency by spin echo criteria. Other: Minimal mucosal thickening in the anterior ethmoid air cells. Prior right cataract surgery. EXTRACRANIAL MRA: Carotid Stenosis: Right Common: No significant stenosis. Right Internal Plaque: Short segment mild eccentric plaque formation in the proximal right ICA. Severe stenosis at the right ECA origin. Right Internal Carotid Stenosis (% by NASCET Criteria): 26 Left Common: No significant stenosis. Left Internal Carotid Plaque: Short segment mild eccentric plaque formation in the proximal left ICA Left Internal Carotid Stenosis (% by NASCET Criteria): 11 Cervical Vertebral Arteries: Patency: Bilateral Dominance: Right IMPRESSION: Small remote cerebellar cortical infarcts and moderate chronic supratentorial microvascular ischemic changes without evidence of an acute intracranial process. No significant stenosis in either carotid bifurcation by NASCET criteria. Patent cervical vertebral arteries. Bottle Gauger: PSCB Transcribe Date/Time: Dec 04 2017 4:12P Dictated by : АНДРЕЙ MAURICIO MD This examination was interpreted and the report reviewed and electronically signed by: АНДРЕЙ MAURICIO MD on Dec 04 2017 4:21PM EST [id number] PROGRESS Observed: 12/04/2017 Status: COMPLETED Source: [place] 3:46 PM [facility] REPOSITORY HNO ID: [id number] Author: Gloria Bolden Rt Service: (none) Author Type: (none) Type: Progress Notes Filed: 12/04/2017 3:51 PM Note Text: Radiology Service Progress Note PATIENT NAME: Miles Sierra DATE OF SERVICE: December 04, 2017 TIME: 3:47 PM PATIENT IDENTITY VERIFICATION COMPLETED USING TWO (2) METHODS: Patient confirmed name verbally and Date of . PATIENT GENDER DATA: Male PATIENT RELEVANT IMPLANT DATA REVIEWED: Yes CONTRAST INDUCED NEPHROPATHY RISK FACTORS: Patient age > 60 years CREATININE: Creatinine Date Value Ref Range Status 10/13/2017 0.83 0.73 - 1.22 mg/dL Final 03/22/2017 0.69 (L) 0.73 - 1.22 mg/dL Final 02/10/2016 0.88 0.70 - 1.40 mg/dL Final eGFR-All Other Races Date Value Ref Range Status 10/13/2017 >60 . Final Comment: eGFR (Estimated GFR) Units of measure: mL/min/1.73 meters squared eGFR is derived from the reexpressed MDRD Study equation using the following parameters: serum creatinine, age, gender and race. The creatinine assay has been calibrated to be traceable to IDMS. An eGFR <60 mL/min/1.73m2 for >3 months is consistent with chronic kidney disease. Refer to KDOQI guidelines for clinical interpretation. In patients with unstable renal function, e.g. those with acute kidney injury, the eGFR may not accurately reflect actual GFR. eGFR- Date Value Ref Range Status 10/13/2017 >60 Final P.O.C.T. RESULTS: POC done: Yes, See Lab Tab December 04, 2017 RADIOLOGIST NOTIFIED?: No ALLERGIES: Reviewed and unchanged CONTRAST ALLERGY: NO. PERIPHERAL IV ACCESS: Ambulatory: IV type: A peripheral IV was started in the Right antecubital site with a Angio cath: 22 gauge., Site assessment: Clean,Dry and Intact, Site disposition Discontinued RADIOLOGY DEPARTMENT: MR; Exam(s) Completed: Head: Routine Brain mra carotids SIGNED BY: Gloria Severino December 04, 2017 3:47 PM PROGRESS Observed: 11/30/2017 Status: COMPLETED Source: [place] 4:09 PM [facility] REPOSITORY HNO ID: [id number] Author: Karin Isaacs LPN Service: (none) Author Type: (none) Type: Progress Notes Filed: 11/30/2017 4:10 PM Note Text: Pt notified of results with understanding, correctly read back instructions. Appointment scheduled. Tracker updated. PROGRESS Observed: 11/30/2017 Status: COMPLETED Source: [place] 2:30 PM [facility] REPOSITORY HNO ID: [id number] Author: Park Stevenson Service: (none) Author Type: Nurse Practitioner Type: Progress Notes Filed: 11/30/2017 4:10 PM Note Text: Please take 5mg Coumadin on Monday and Fridays. 7.5mg all other days and recheck in 1 week. Park Stevenson APRN.CNP PROGRESS Observed: 11/30/2017 Status: COMPLETED Source: [place] 2:05 PM [facility] REPOSITORY HNO ID: [id number] Author: Karin Isaacs LPN Service: (none) Author Type: (none) Type: Progress Notes Filed: 11/30/2017 4:10 PM Note Text: please indicate dose on Monday and Monday. thanks PROGRESS Observed: 11/30/2017 Status: COMPLETED Source: [place] 1:17 PM [facility] REPOSITORY HNO ID: [id number] Author: Carlos Morton Service: (none) Author Type: Physician Type: Progress Notes Filed: 11/30/2017 4:10 PM Note Text: Please take 7.5 mgs all day of the week except Monday and Monday and recheck in 1 week Regards, Carlos Morton MD PROGRESS Observed: 11/30/2017 Status: COMPLETED Source: [place] 9:45 AM [facility] REPOSITORY HNO ID: [id number] Author: Irlanda Guadalupe RN Service: (none) Author Type: (none) Type: Progress Notes Filed: 11/30/2017 9:47 AM Note Text: patient had inr completed at [facility] patients inr is 1.4 (patients inr range is 2.0-3.0) patient is currently taking 5mg Tues,Thurs,Sun and 7.5mg all other day patients last dose change was on 11/09/17 due to a low level of 1.8 (dose at that time was 5mg Mon,Wed,Fri and 7.5mg all other days) patient has had no changes in medication and no missed doses and no change in diet Advised patient that they would be contacted regarding medication dose and when to follow up after information is reviewed by provider. After provider review please contact the patient with information and schedule follow up appointment with coumadin clinic. FYI- patient has been scheduled for a 2 week follow up inr on 12/14/17 PROGRESS Observed: 11/27/2017 Status: COMPLETED Source: [place] 11:00 AM [facility] REPOSITORY HNO ID: [id number] Author: Luis Murray Service: (none) Author Type: Physician Type: Progress Notes Filed: 11/27/2017 11:36 AM Note Text: Patient presents with: Derm Problem: right leg bruise HPI: Bruise: Location: Right calf Duration: 1 week Pruritis/Pain: Tender to touch Change: Turned from purple to yellow Drainage/blister/pustule/ulceration: Feels a lump in there Treatment: Rub from pain medicine doctor. MEDICATIONS: predniSONE (DELTASONE) 20 mg tablet 2 po qd Omeprazole 40 mg capsule 1 po qd while on prednisone ondansetron (ZOFRAN) 8 mg tablet Take 0.5 tablets by mouth every 8 hours as needed. meloxicam (MOBIC) 7.5 mg tablet Take 1 tablet by mouth once daily. for pain. Take with food. warfarin (COUMADIN) 5 mg tablet Take 1 tablet by mouth once daily. busPIRone (BUSPAR) 10 mg tablet TAKE 1 TABLET BY MOUTH THREE TIMES A DAY sertraline (ZOLOFT) 50 mg tablet Take 1 tablet by mouth once daily. Total of 150mg daily ipratropium-albuterol (DUONEB) 0.5 mg-3 mg(2.5 mg base)/3 mL nebu Inhale 3 mL as instructed every 6 hours as needed (wheezing). Use over 5-15minutes per nebulizer. albuterol HFA (VENTOLIN HFA) 90 mcg/actuation inhaler Inhale 2 Puffs as instructed every 4 hours as needed. COMPOUNDED PRESCRIPTION 3 prong cane hydrOXYzine HCl (ATARAX) 50 mg tablet Take 1 tablet by mouth three times daily as needed. ondansetron orally disintegrating (ZOFRAN ODT) 4 mg disintegrating tablet dissolve 1 tablet ON TONGUE every 6 hours if needed for nausea and vomiting senna (SENNA CONCENTRATE) 8.6 mg tab Take 1 tablet by mouth daily at bedtime. mirtazapine (REMERON) 15 mg tablet Take 1 tablet by mouth daily at bedtime. divalproex DR (DEPAKOTE) 250 mg EC tablet Take 1 tablet by mouth twice daily. LORazepam (ATIVAN) 0.5 mg tab Take 1 tablet by mouth twice daily as needed. pantoprazole DR (PROTONIX) 40 mg tablet Take 1 tablet by mouth daily before breakfast. Take on empty stomach, 1/2 hr before meal. metoprolol tartrate, short acting, (LOPRESSOR) 50 mg tablet Take 1 tablet by mouth twice daily. Take twice a day with 25 mg tab sertraline (ZOLOFT) 100 mg tablet Take 1 tablet by mouth once daily. finasteride (PROSCAR) 5 mg tablet Take 1 tablet by mouth once daily. atorvastatin (LIPITOR) 40 mg tablet Take 1 tablet by mouth once daily. carBAMazepine XR (TEGRETOL XR) 200 mg 12 hr tablet Take 1 tablet by mouth twice daily. tamsulosin ER (FLOMAX) 0.4 mg cp24 Take 1 capsule by mouth once daily. COMPOUNDED PRESCRIPTION Hinged knee brace- right Re: osteoarthritis of the knee fluticasone-salmeterol (ADVAIR DISKUS) 250-50 mcg/dose dsdv Inhale 1 Puff as instructed twice daily. RINSE AND GARGLE MOUTH WITH WATER AFTER EACH USE. Leg Brace [place] [facility] [place] use [place] brace daily in the morning especially if he needs to bear weight . predniSONE (DELTASONE) 20 mg tablet Take 20 mg by mouth once daily. Two tabs daily aspirin, enteric coated (ASPIRIN, ENTERIC COATED) 81 mg EC tablet Take 81 mg by mouth once daily. warfarin (JANTOVEN) 4 mg tablet Take 4 mg by mouth daily as directed. lidocaine (LIDODERM) 5 % Apply 1 Patch as directed every 24 hours. acetaminophen (TYLENOL) 325 mg tablet Take 2 tablets by mouth every 4 hours as needed for Pain. COMPOUNDED PRESCRIPTION Aerosol supplies Dx:J44.1 NP#[id number] fentaNYL (DURAGESIC) 50 mcg/hr Apply 1 Patch as directed every 72 hours. ferrous sulfate 325 mg (65 mg iron) tablet Take 325 mg by mouth daily with breakfast. docusate sodium 100 mg capsule Take 1 capsule by mouth twice daily. Blood Pressure Monitor kit Check bp 2 to 3x daily gabapentin (NEURONTIN) 600 mg tablet Take 1 tablet by mouth four times daily for 90 days. ALLERGIES: ALLERGIES No Known Allergies VITALS: BP 160/74 Pulse (!) 56 Resp 20 Wt 70.3 kg (155 lb) BMI 23.57 kg/m? PHYSICAL EXAM: GEN: pleasant, no acute distress, alert, smells of smoke, cigarettes in chest pocket, ambulates with a walker HEART: regular rate, regular rhythm, no murmurs LUNGS: clear to auscultation, no wheezes or crackles, no increased WOB EXT: no clubbing, no cyanosis, no edema. 10x7cm ecchymosis mid to upper right calf which is mildly tender and subcutaneous firmness in the upper 1/3. Component Latest Ref Rng AND Units 10/26/2017 11/02/2017 11/09/2017 11/16/2017 INR (POCT) 0.8 - 1.2 1.8 (H) 2.0 (H) 1.8 (H) 2.3 (H) Component Latest Ref Rng AND Units 11/17/2017 PT INR 0.9 - 1.3 2.4 (H) ASSESSMENT/PLAN: 1. Traumatic ecchymosis of right lower leg, initial encounter - ICD9: 924.10, ICD10: S80.11XA Reassured of healing bruise while on therapeutic anticoagulation without suspicious findings. Luis Murray MD CNOV Observed: 11/27/2017 Status: COMPLETED Source: [place] 11:00 AM [facility] REPOSITORY Office Visit (WSTR) MILES SIERRA ([id number]) 1950 M Date Time Provider Department 11/27/17 11:00 AM LUIS MURRAY [facility] During your visit today, we recorded the following information about you: Pulse Respiration Blood pressure Weight 56/minute 20/minute 160/74 70.3 kg Luis Murray MD 11/27/2017 11:36 AM Signed Patient presents with: Derm Problem: right leg bruise HPI: Bruise: Location: Right calf Duration: 1 week Pruritis/Pain: Tender to touch Change: Turned from purple to yellow Drainage/blister/pustule/ulceration: Feels a lump in there Treatment: Rub from pain medicine doctor. MEDICATIONS: predniSONE (DELTASONE) 20 mg tablet 2 po qd Omeprazole 40 mg capsule 1 po qd while on prednisone ondansetron (ZOFRAN) 8 mg tablet Take 0.5 tablets by mouth every 8 hours as needed. meloxicam (MOBIC) 7.5 mg tablet Take 1 tablet by mouth once daily. for pain. Take with food. warfarin (COUMADIN) 5 mg tablet Take 1 tablet by mouth once daily. busPIRone (BUSPAR) 10 mg tablet TAKE 1 TABLET BY MOUTH THREE TIMES A DAY sertraline (ZOLOFT) 50 mg tablet Take 1 tablet by mouth once daily. Total of 150mg daily ipratropium-albuterol (DUONEB) 0.5 mg-3 mg(2.5 mg base)/3 mL nebu Inhale 3 mL as instructed every 6 hours as needed (wheezing). Use over 5-15minutes per nebulizer. albuterol HFA (VENTOLIN HFA) 90 mcg/actuation inhaler Inhale 2 Puffs as instructed every 4 hours as needed. COMPOUNDED PRESCRIPTION 3 prong cane hydrOXYzine HCl (ATARAX) 50 mg tablet Take 1 tablet by mouth three times daily as needed. ondansetron orally disintegrating (ZOFRAN ODT) 4 mg disintegrating tablet dissolve 1 tablet ON TONGUE every 6 hours if needed for nausea and vomiting senna (SENNA CONCENTRATE) 8.6 mg tab Take 1 tablet by mouth daily at bedtime. mirtazapine (REMERON) 15 mg tablet Take 1 tablet by mouth daily at bedtime. divalproex DR (DEPAKOTE) 250 mg EC tablet Take 1 tablet by mouth twice daily. LORazepam (ATIVAN) 0.5 mg tab Take 1 tablet by mouth twice daily as needed. pantoprazole DR (PROTONIX) 40 mg tablet Take 1 tablet by mouth daily before breakfast. Take on empty stomach, 1/2 hr before meal. metoprolol tartrate, short acting, (LOPRESSOR) 50 mg tablet Take 1 tablet by mouth twice daily. Take twice a day with 25 mg tab sertraline (ZOLOFT) 100 mg tablet Take 1 tablet by mouth once daily. finasteride (PROSCAR) 5 mg tablet Take 1 tablet by mouth once daily. atorvastatin (LIPITOR) 40 mg tablet Take 1 tablet by mouth once daily. carBAMazepine XR (TEGRETOL XR) 200 mg 12 hr tablet Take 1 tablet by mouth twice daily. tamsulosin ER (FLOMAX) 0.4 mg cp24 Take 1 capsule by mouth once daily. COMPOUNDED PRESCRIPTION Hinged knee brace- right Re: osteoarthritis of the knee fluticasone-salmeterol (ADVAIR DISKUS) 250-50 mcg/dose dsdv Inhale 1 Puff as instructed twice daily. RINSE AND GARGLE MOUTH WITH WATER AFTER EACH USE. Leg Brace ([place]EE [place] BRACE[place] [facility] [place] use [place] brace daily in the morning especially if he needs to bear weight . predniSONE (DELTASONE) 20 mg tablet Take 20 mg by mouth once daily. Two tabs daily aspirin, enteric coated (ASPIRIN, ENTERIC COATED) 81 mg EC tablet Take 81 mg by mouth once daily. warfarin (JANTOVEN) 4 mg tablet Take 4 mg by mouth daily as directed. lidocaine (LIDODERM) 5 % Apply 1 Patch as directed every 24 hours. acetaminophen (TYLENOL) 325 mg tablet Take 2 tablets by mouth every 4 hours as needed for Pain. COMPOUNDED PRESCRIPTION Aerosol supplies Dx:J44.1 NPI#[id number] fentaNYL (DURAGESIC) 50 mcg/hr Apply 1 Patch as directed every 72 hours. ferrous sulfate 325 mg (65 mg iron) tablet Take 325 mg by mouth daily with breakfast. docusate sodium 100 mg capsule Take 1 capsule by mouth twice daily. Blood Pressure Monitor kit Check bp 2 to 3x daily gabapentin (NEURONTIN) 600 mg tablet Take 1 tablet by mouth four times daily for 90 days. ALLERGIES: ALLERGIES No Known Allergies VITALS: BP 160/74 Pulse (!) 56 Resp 20 Wt 70.3 kg (155 lb) BMI 23.57 kg/m? PHYSICAL EXAM: GEN: pleasant, no acute distress, alert, smells of smoke, cigarettes in chest pocket, ambulates with a walker HEART: regular rate, regular rhythm, no murmurs LUNGS: clear to auscultation, no wheezes or crackles, no increased WOB EXT: no clubbing, no cyanosis, no edema. 10x7cm ecchymosis mid to upper right calf which is mildly tender and subcutaneous firmness in the upper 1/3. Component Latest Ref Rng AND Units 10/26/2017 11/02/2017 11/09/2017 11/16/2017 INR (POCT) 0.8 - 1.2 1.8 (H) 2.0 (H) 1.8 (H) 2.3 (H) Component Latest Ref Rng AND Units 11/17/2017 PT INR 0.9 - 1.3 2.4 (H) ASSESSMENT/PLAN: 1. Traumatic ecchymosis of right lower leg, initial encounter - ICD9: 924.10, ICD10: S80.11XA Reassured of healing bruise while on therapeutic anticoagulation without suspicious findings. Luis Murray MD Referring Provider: SELF [[id number]] Allergies As of Date: 11/27/2017 (No Known Allergies) Date Reviewed: 11/27/2017 Reviewed by: Noemy Silva LPN - Fully Assessed Reason for Visit: Derm Problem [33] Cmt: right leg bruise Primary Visit Diagnosis:Traumatic ecchymosis of right lower leg, initial encounter [S80.11XA] Prescriptions as of 11/27/2017 Sig: PREDNISONE 20 MG TABLET 2 po qd OMEPRAZOLE 40 MG CAPSULE,MATHEUS* 1 po qd while on prednisone ONDANSETRON HCL 8 MG TABLET Take 0.5 tablets by mouth dillon* MELOXICAM 7.5 MG TABLET Take 1 tablet by mouth once d* WARFARIN 5 MG TABLET Take 1 tablet by mouth once d* BUSPIRONE 10 MG TABLET TAKE 1 TABLET BY MOUTH THREE * SERTRALINE 50 MG TABLET Take 1 tablet by mouth once d* IPRATROPIUM-ALBUTEROL 0.5 MG-* Inhale 3 mL as instructed dillon* ALBUTEROL SULFATE HFA 90 MCG/* Inhale 2 Puffs as instructed * COMPOUNDED PRESCRIPTION 3 prong cane HYDROXYZINE HCL 50 MG TABLET Take 1 tablet by mouth three * ONDANSETRON 4 MG DISINTEGRATI* dissolve 1 tablet ON TONGUE e* SENNOSIDES 8.6 MG TABLET Take 1 tablet by mouth daily * MIRTAZAPINE 15 MG TABLET Take 1 tablet by mouth daily * DIVALPROEX 250 MG TABLET,MATHEUS* Take 1 tablet by mouth twice * LORAZEPAM 0.5 MG TABLET Take 1 tablet by mouth twice * PANTOPRAZOLE 40 MG TABLET,DEL* Take 1 tablet by mouth daily * METOPROLOL TARTRATE 50 MG TAB* Take 1 tablet by mouth twice * SERTRALINE 100 MG TABLET Take 1 tablet by mouth once d* FINASTERIDE 5 MG TABLET Take 1 tablet by mouth once d* ATORVASTATIN 40 MG TABLET Take 1 tablet by mouth once d* CARBAMAZEPINE ER 200 MG TABLE* Take 1 tablet by mouth twice * TAMSULOSIN 0.4 MG CAPSULE Take 1 capsule by mouth once * COMPOUNDED PRESCRIPTION Hinged knee brace- right Re: * FLUTICASONE 250 MCG-SALMETERO* Inhale 1 Puff as instructed t* LEG BRACE Please use the brace daily in* PREDNISONE 20 MG TABLET Take 20 mg by mouth once dominick* ASPIRIN 81 MG TABLET,DELAYED * Take 81 mg by mouth once dominick* WARFARIN 4 MG TABLET Take 4 mg by mouth daily as d* LIDOCAINE 5 % TOPICAL PATCH Apply 1 Patch as directed dillon* ACETAMINOPHEN 325 MG TABLET Take 2 tablets by mouth every* COMPOUNDED PRESCRIPTION 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 Hypertension [I10] Priority: D More... Hyperlipidemia [E78.5] INVALID FOR* Priority: E More... CAD (coronary artery disease) [I25.10] INVALID FOR* Priority: J More... COPD (chronic obstructive pulmonary disease) (H* Priority: C More... Tobacco use disorder [F17.200] More... Anxiety and depression [F41.9, F32.9] Priority: E More... Blindness of right eye [H54.40] Bilateral shoulder pain [M25.511, M25.512] INVALID FOR* Neck pain [M54.2] INVALID FOR* Chronic low back pain [M54.5, G89.29] INVALID FOR* Vertebral compression fracture [M48.50XA] INVALID FOR* Lumbar spondylosis [M47.816] INVALID FOR* Lumbar radiculopathy [M54.16] INVALID FOR* Rectal bleeding [K62.5] 11/13/2013 Ischemia of extremity [I99.8] INVALID FOR*02/10/2014 Priority: B More... Urinary retention [R33.9] INVALID FOR* Priority: E More... DISPOSITION AND FOLLOW-UP [V999.01] INVALID FOR* Priority: M More... Erythema of groin [L53.9] INVALID FOR*02/10/2014 Priority: B More... SUMMARY [V999.95] INVALID FOR* Priority: Very Severe More... Pain, postoperative, acute [G89.18] INVALID FOR*02/10/2014 Priority: B More... Thrombosis [I82.90] INVALID FOR*02/10/2014 Priority: A More... Anticoagulation goal of INR 2 to 3 [Z51.81, Z79*INVALID FOR* Priority: B More... Melena [K92.1] INVALID FOR* Priority: A More... IBD (inflammatory bowel disease) [K52.9] INVALID FOR* Priority: K More... Abdominal pain, other specified site [R10.9] INVALID FOR* Priority: I More... Anxiety [F41.9] INVALID FOR* Priority: K More... Urinary retention with incomplete bladder empty*INVALID FOR* Priority: C More... Hyponatremia [E87.1] INVALID FOR* More... GI bleeding [D62] INVALID FOR* Priority: B More... Anemia due to acute blood loss [D62] INVALID FOR* More... s/p left femoral endarterectomy/aortoiliac sten*INVALID FOR* Priority: A More... PVD (peripheral vascular disease) ([facility]) [I73.9] INVALID FOR* More... Lupus anticoagulant disorder (HCC) [D68.62] INVALID FOR* More... Ulcerative colitis ([facility]) [K51.90] INVALID FOR* Priority: G More... Smoker [F17.200] INVALID FOR* Priority: C More... Hematoma, postoperative [RWZ0570] INVALID FOR*08/11/2014 Priority: C More... Lipoma of abdominal wall [D17.1] INVALID FOR* More... Ischaemic rest pain of lower extremity (HCC) [I*INVALID FOR* Illiterate [Z55.0] INVALID FOR* Pain in left shoulder [M25.512] INVALID FOR* More... Acute GI bleeding [K92.2] INVALID FOR* Priority: A More... Hypotension due to blood loss [I95.89] INVALID FOR* Priority: B More... Dysuria [R30.0] INVALID FOR* Priority: D More... Lipoma of back [D17.1] INVALID FOR* Seizure disorder (HCC) [G40.909] INVALID FOR*07/10/2017 Trigeminal neuralgia [G50.0] INVALID FOR* More... 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 Encounter Status:Closed by LUIS MURRAY MD on 11/27/17 PROGRESS Observed: 11/23/2017 Status: COMPLETED Source: [place] 12:53 PM [facility] REPOSITORY O ID: [id number] Author: Aleja Barrett [facility] Service: (none) Author Type: Registered Nurse Type: Progress Notes Filed: 11/23/2017 12:57 PM Note Text: PRIMARY CARE COORDINATION FOLLOW-UP NOTE Provider Action/FYI Pt scheduled for MRI/MRA as requested Will discuss sleep study at upcoming appt. Patient identified by name and date of . YES Spoke to patient Summary: Asked to help pt schedule MRI/MRA requested by Neurology at [facility]. Pt was scheduled for 12/04 2:20pm and pt was notified and information mailed to him. Was also asked to contact ordering MD and modify order as requested and did so. Concerns: Pt mentioned needing sleep study done and will discuss at appt with LODGE OFFICER in 2 wks. Apparently had initial study done quite a long time ago but did not follow up at that time. [employer] plan for next outreach: No further follow up needed at this time Signature Aleja Barrett RN November 23, 2017 DYANA Observed: 11/23/2017 Status: COMPLETED Source: [place] 12:00 AM [facility] REPOSITORY Patient Outreach (INTM[facility]) MILES SIERRA ([id number]) 1950 M Date Time Provider Department 11/23/17 ALEJA SCHWARTZ During your visit today, we recorded the following information about you: Aleja Barrett RN 11/23/2017 12:57 PM Signed PRIMARY CARE COORDINATION FOLLOW-UP NOTE Provider Action/FYI Pt scheduled for MRI/MRA as requested Will discuss sleep study at upcoming appt. Patient identified by name and date of . YES Spoke to patient Summary: Asked to help pt schedule MRI/MRA requested by Neurology at [facility]. Pt was scheduled for 12/04 2:20pm and pt was notified and information mailed to him. Was also asked to contact ordering MD and modify order as requested and did so. Concerns: Pt mentioned needing sleep study done and will discuss at appt with LODGE OFFICER in 2 wks. Apparently had initial study done quite a long time ago but did not follow up at that time. [employer] plan for next outreach: No further follow up needed at this time Signature Aleja Barrett RN November 23, 2017 Allergies As of Date: 11/23/2017 (No Known Allergies) Date Reviewed: 11/17/2017 Reviewed by: Luisa Chandler Ma - Fully Assessed Reason for Visit: [employer] Chronic Care [0127] Prescriptions as of 11/23/2017 Sig: PREDNISONE 20 MG TABLET 2 po qd OMEPRAZOLE 40 MG CAPSULE,MATHEUS* 1 po qd while on prednisone ONDANSETRON HCL 8 MG TABLET Take 0.5 tablets by mouth dillon* MELOXICAM 7.5 MG TABLET Take 1 tablet by mouth once d* WARFARIN 5 MG TABLET Take 1 tablet by mouth once d* BUSPIRONE 10 MG TABLET TAKE 1 TABLET BY MOUTH THREE * SERTRALINE 50 MG TABLET Take 1 tablet by mouth once d* IPRATROPIUM-ALBUTEROL 0.5 MG-* Inhale 3 mL as instructed dillon* ALBUTEROL SULFATE HFA 90 MCG/* Inhale 2 Puffs as instructed * COMPOUNDED PRESCRIPTION 3 prong cane HYDROXYZINE HCL 50 MG TABLET Take 1 tablet by mouth three * ONDANSETRON 4 MG DISINTEGRATI* dissolve 1 tablet ON TONGUE e* SENNOSIDES 8.6 MG TABLET Take 1 tablet by mouth daily * MIRTAZAPINE 15 MG TABLET Take 1 tablet by mouth daily * GABAPENTIN 600 MG TABLET Take 1 tablet by mouth four t* DIVALPROEX 250 MG TABLET,MATHEUS* Take 1 tablet by mouth twice * LORAZEPAM 0.5 MG TABLET Take 1 tablet by mouth twice * PANTOPRAZOLE 40 MG TABLET,DEL* Take 1 tablet by mouth daily * METOPROLOL TARTRATE 50 MG TAB* Take 1 tablet by mouth twice * SERTRALINE 100 MG TABLET Take 1 tablet by mouth once d* FINASTERIDE 5 MG TABLET Take 1 tablet by mouth once d* ATORVASTATIN 40 MG TABLET Take 1 tablet by mouth once d* CARBAMAZEPINE ER 200 MG TABLE* Take 1 tablet by mouth twice * TAMSULOSIN 0.4 MG CAPSULE Take 1 capsule by mouth once * COMPOUNDED PRESCRIPTION Hinged knee brace- right Re: * FLUTICASONE 250 MCG-SALMETERO* Inhale 1 Puff as instructed t* LEG BRACE Please use the brace daily in* PREDNISONE 20 MG TABLET Take 20 mg by mouth once dominick* ASPIRIN 81 MG TABLET,DELAYED * Take 81 mg by mouth once dominick* WARFARIN 4 MG TABLET Take 4 mg by mouth daily as d* LIDOCAINE 5 % TOPICAL PATCH Apply 1 Patch as directed dillon* ACETAMINOPHEN 325 MG TABLET Take 2 tablets by mouth every* COMPOUNDED PRESCRIPTION 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 Hypertension [I10] Priority: D More... Hyperlipidemia [E78.5] INVALID FOR* Priority: E More... CAD (coronary artery disease) [I25.10] INVALID FOR* Priority: J More... COPD (chronic obstructive pulmonary disease) (H* Priority: C More... Tobacco use disorder [F17.200] More... Anxiety and depression [F41.9, F32.9] Priority: E More... Blindness of right eye [H54.40] Bilateral shoulder pain [M25.511, M25.512] INVALID FOR* Neck pain [M54.2] INVALID FOR* Chronic low back pain [M54.5, G89.29] INVALID FOR* Vertebral compression fracture [M48.50XA] INVALID FOR* Lumbar spondylosis [M47.816] INVALID FOR* Lumbar radiculopathy [M54.16] INVALID FOR* Rectal bleeding [K62.5] 11/13/2013 Ischemia of extremity [I99.8] INVALID FOR*02/10/2014 Priority: B More... Urinary retention [R33.9] INVALID FOR* Priority: E More... DISPOSITION AND FOLLOW-UP [V999.01] INVALID FOR* Priority: M More... Erythema of groin [L53.9] INVALID FOR*02/10/2014 Priority: B More... SUMMARY [V999.95] INVALID FOR* Priority: Very Severe More... Pain, postoperative, acute [G89.18] INVALID FOR*02/10/2014 Priority: B More... Thrombosis [I82.90] INVALID FOR*02/10/2014 Priority: A More... Anticoagulation goal of INR 2 to 3 [Z51.81, Z79*INVALID FOR* Priority: B More... Melena [K92.1] INVALID FOR* Priority: A More... IBD (inflammatory bowel disease) [K52.9] INVALID FOR* Priority: K More... Abdominal pain, other specified site [R10.9] INVALID FOR* Priority: I More... Anxiety [F41.9] INVALID FOR* Priority: K More... Urinary retention with incomplete bladder empty*INVALID FOR* Priority: C More... Hyponatremia [E87.1] INVALID FOR* More... GI bleeding [D62] INVALID FOR* Priority: B More... Anemia due to acute blood loss [D62] INVALID FOR* More... s/p left femoral endarterectomy/aortoiliac sten*INVALID FOR* Priority: A More... PVD (peripheral vascular disease) (HCC) [I73.9] INVALID FOR* More... Lupus anticoagulant disorder (HCC) [D68.62] INVALID FOR* More... Ulcerative colitis (HCC) [K51.90] INVALID FOR* Priority: G More... Smoker [F17.200] INVALID FOR* Priority: C More... Hematoma, postoperative [DYQ7943] INVALID FOR*08/11/2014 Priority: C More... Lipoma of abdominal wall [D17.1] INVALID FOR* More... Ischaemic rest pain of lower extremity (HCC) [I*INVALID FOR* Illiterate [Z55.0] INVALID FOR* Pain in left shoulder [M25.512] INVALID FOR* More... Acute GI bleeding [K92.2] INVALID FOR* Priority: A More... Hypotension due to blood loss [I95.89] INVALID FOR* Priority: B More... Dysuria [R30.0] INVALID FOR* Priority: D More... Lipoma of back [D17.1] INVALID FOR* Seizure disorder (HCC) [G40.909] INVALID FOR*07/10/2017 Trigeminal neuralgia [G50.0] INVALID FOR* More... 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 Encounter Status:Closed by ALEJA LOW on 11/23/17 PROGRESS Observed: 11/20/2017 Status: COMPLETED Source: [place] 1:09 PM [facility] REPOSITORY HNO ID: [id number] Author: Alie NessPtPauline Mensah Service: (none) Author Type: Physical Therapist Type: Progress Notes Filed: 11/20/2017 1:13 PM Note Text: [facility] PHYSICAL THERAPY DISCONTINUANCE OF CARE Plan of Care Period: Start of Care Date: 09/12/17 Last Visit Date: 10/09/2017 Therapy Program: The following is a summary of the interventions provided for this episode of care; Therapeutic exercise and Manual therapy Assessment: Based on most recent visit, patient was progressing as expected toward functional goals based on documented objective information regarding overall function. Unable to formally assess goal achievement due to non-compliance with therapy plan of care. Reason for Discontinuation of Care: Patient has not returned to therapy or scheduled additional follow-up appointments. Alie Mensah, PT PROTIME Collected: 11/17/2017 Status: F Source: [place] 4:10 PM [facility] REPOSITORY TYPE CODE TESTS RESULT OUT OF RANGE REFERENCE UNITS LAB PSEC 9.7-13.0 sec High PT Sec 23.5 LAB INR 0.9-1.3 High PT INR 2.4 Result Comment: Vitamin K Antagonist (VKA) Therapeutic Range: INR 2 to 3 (Target INR of 2.5) Note: For patients treated with VKA drugs, such as warfarin, the [place] [employer] 2012 Guideline recommends a therapeutic INR range of 2 to 3 (target INR of 2.5). This recommendation includes high-risk patients with antiphospholipid syndrome with previous arterial or venous thromboembolism, current-generation mechanical or bioprosthetic aortic heart valve replacement. Note: Patients with mechanical aortic valve replacement and additional risk factors for thromboembolic events (atrial fibrillation, previous thromboembolism, LV dysfunction, hypercoagulable conditions) or an older generation mechanical AVR (i.e., ball in-Cage) or any mechanical MVR should have a INR therapeutic range of 2.5 to 3.5 (target INR of 3). Jael WARNER, et al. Chest 2012, 141:7S-47S Gio KENNY et al. [facility] 2017, 70: 252-289 Performed By: #### PT #### [facility] [address] [place] [address] CBC Collected: 11/17/2017 Status: F Source: [place] 4:09 PM [facility] REPOSITORY TYPE CODE TESTS RESULT OUT OF REFERENCE UNITS RANGE LAB WBC 3.70-11.00 k/uL WBC 6.95 LAB RBC 4.20-6.00 m/uL RBC 4.33 LAB HGB 13.0-17.0 g/dL Hemoglobin 13.5 LAB HCT 39.0-51.0 % Hematocrit 41.8 LAB MCV 80.0-100.0 fL MCV 96.5 LAB MCH 26.0-34.0 pG MCH 31.2 LAB MCHC 30.5-36.0 g/dL MCHC 32.3 LAB RDWCV 11.5-15.0 % RDW-CV 13.0 LAB PLTCT 150-400 k/uL Platelet Count 305 LAB MPV 9.0-12.7 fL MPV 10.2 LAB ABSNUC <0.01 k/uL Absolute nRBC <0.01 Performed By: #### CBC, WSR, CRP #### [facility] LYYN [address] [id number] SED RATE WESTERGREN Collected: 11/17/2017 Status: F Source: [place] 4: [facility] REPOSITORY TYPE CODE TESTS RESULT OUT OF REFERENCE UNITS RANGE LAB WSR 0-15 mm/hr Sed Rate Westergren 2 Performed By: #### CBC, WSR, CRP #### [id number] [id number] C-REACTIVE PROTEIN Collected: 11/17/2017 Status: F Source: [place] 4:09 [facility] REPOSITORY TYPE CODE TESTS RESULT OUT OF REFERENCE UNITS RANGE LAB CRP <0.9 mg/dL C-Reactive 0.5 Protein Performed By: #### CBC, WSR, CRP #### [address] [address] [place], [place] [address] LIPID PANEL, BASIC Collected: 11/17/2017 Status: F Source: [place] 4:09 [facility] REPOSITORY TYPE CODE TESTS RESULT OUT OF REFERENCE UNITS RANGE LAB CHOL <200 mg/dL Cholesterol 143 Result Comment: <200 mg/dL, Desirable 200-239 mg/dL, Borderline high >239 mg/dL, High LAB TRIGLY <150 mg/dL Triglyceride 131 Result Comment: <150 mg/dL, Normal 150-199 mg/dL, Borderline high 200-499 mg/dL, High >499 mg/dL, Very high LAB HDL >39 mg/dL HDL-Cholesterol 61 Result Comment: 40-59 mg/dL, Acceptable >59 mg/dL, High: Negative risk factor for coronary heart disease <40 mg/dL, Low: Positive risk factor for coronary heart disease LAB LDL <100 mg/dL LDL-Cholesterol 56 Result Comment: <100 mg/dL, Optimal 100-129 mg/dL, Near optimal/above optimal 130-159 mg/dL, Borderline high 160-189 mg/dL, High >189 mg/dL, Very high Secondary prevention optimal LDL Cholesterol levels are recommended to be < 70 mg/dL LAB NONHDL <130 mg/dL Non HDL Cholesterol 82 Result Comment: <130 mg/dL, Optimal 130-159 mg/dL, Near optimal/above optimal 160-189 mg/dL, Borderline high 190-219 mg/dL, High >219 mg/dL, Very high Secondary prevention optimal non HDL Cholesterol levels are recommended to be < 100 mg/dL LAB FT hrs Fasting Time 16 LAB VLDL <30 mg/dL VLDL Cholesterol 26 LAB TCHDL <5.10 TC:HDL Ratio 2.34 LAB LDLHDL <2.54 LDL:HDL Ratio 0.92 Result Comment: Reference: 1. National Cholesterol Education Program ATP III Guideline At-A-Glance Quick Desk Reference: National Heart, Lung, and Blood [place]. National Institutes of Health. 2001: NIH Publication No. 01-3305. 2. An International Atherosclerosis Society position paper: global recommendations for the management of dyslipidemia: executive summary, Atherosclerosis. 2014: 232(2):410-413. Performed By: #### LIPB #### [facility] [address] [address] [place] Observed: 11/17/2017 Status: COMPLETED Source: [place] 1:40 PM [facility] REPOSITORY Office Visit (NEABYN) MILES SIERRA ([id number]) 1950 M Date Time Provider Department 11/17/17 1:40 PM SELMA WALTON During your visit today, we recorded the following information about you: Pulse Blood pressure Weight Height 51/minute 149/76 70.9 kg 1.727 m Selma Walton MD 11/18/2017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 acetaminophen (TYLENOL) 325 mg tablet Take 2 tablets by mouth every 4 hours as needed for Pain. COMPOUNDED PRESCRIPTION Aerosol supplies Dx:J44.1 NPI#[id number] fentaNYL (DURAGESIC) 50 mcg/hr Apply 1 Patch as directed every 72 hours. ferrous sulfate 325 mg (65 mg iron) tablet Take 325 mg by mouth daily with breakfast. docusate sodium 100 mg capsule Take 1 capsule by mouth twice daily. Blood Pressure Monitor kit Check bp 2 to 3x daily FAMILY HISTORY Problem Relation Age of Onset - Coronary Artery Disease Mother HTN; DM - Hypertension Mother - Coronary Artery Disease Father HTN; DM - Hypertension Father - Coronary Artery Disease Sister DM - Heart Brother PPM - Heart Brother DM - Ischemic Heart Disease Maternal Grandfather - Diabetes Maternal Grandmother MVP - Ischemic Heart Disease Paternal Grandfather - MVA [OTHER] Maternal Uncle broken back - MVA [OTHER] Daughter broken back Social History Substance Use Topics - Smoking status: Former Smoker Packs/day: 0.50 Years: 50.00 Types: Cigarettes Start date: 06/19/1958 Quit date: 08/04/2015 - Smokeless tobacco: Never Used - Alcohol use No Comment: History of alcohol abuse. I cut that out. PHYSICAL EXAM BP 110/70 Pulse 72 Resp 16 Wt 70.3 kg (155 lb) BMI 23.57 kg/m? General Appearance: well appearing, in no acute distress, alert Skin: Skin color, texture, turgor normal for age; Lungs: Lungs clear to auscultation. No wheezing, rhonchi, rales Heart: RRR without murmur, gallop, or rubs. No ectopy Abdomen: Negative findings: no masses palpable, no organomegaly and bowel sounds normoactive, Positive findings: tenderness mild generalized PNEUMOVAX AGE 65 AND OVER WITH 5YR LOOKBACK(1) due on 03/25/2018 DIABETES SCREEN due on 10/13/2020 COLORECTAL CANCER SCREENING,SEE MODIFIER due on 10/17/2021 LIPID SCREEN due on 10/13/2022 DTAP,TDAP,TD(2 - Td) due on 01/03/2023 PROSTATE CANCER SCREENING DISCUSSION Completed ABDOMINAL AORTIC ANEURYSM SCREENING TOPIC Completed ADULT PREVNAR-13 Completed INFLUENZA Completed HEPATITIS C SCREENING Completed ASSESSMENT/PLAN: 1. Gastroenteritis - ICD9: 558.9, ICD10: K52.9 - Improved - Continue fluid intake, bland diet and plenty of rest - Take bentyl as prescribed - Informational handout provided on gastroenteritis - Follow as needed for new or worsening symptoms Park Stevenson APRN.ACE Prescription instructions reviewed with patient as applicable. Potential red flag symptoms discussed with the patient. Reviewed appropriate action plan to take if red flag symptoms occur. Patient agreeable to treatment plan. Park Stevenson APRN.CNP 11/16/2017 1:32 PM [facility]endum [facility]: [phone] GASTROENTERITIS Your exam shows you have gastroenteritis, a common illness. Symptoms can include nausea, vomiting, stomach cramps, diarrhea, and a slight fever. Viral gastroenteritis, usually the most common form clears up in 2-3 days with bed rest and a clear liquid diet. If you are not vomiting, you can start on small sips of water or Pedialyte every 20-30 minutes; gradually increase this to 1-2 cups every hour as tolerated. Try crackers and dry toast as your symptoms improve. If you tolerate for 24 hours can increase diet to potatoes; rice; noodles; ripe bananas; applesauce; smooth peanut butter; white bread; chicken or turkey without the skin; lean ground beef; fish. Stay away from milk and dairy products, alcohol, and drugs that upset your stomach for the next week. Medications ? Take two tablespoons of Kaopectate or two tablespoons of Pepto-Bismol after each loose stool. Do not take more than eight doses. ? If Kaopectate does not help in 12 hours, take two tablets of Imodium after each loose stool. Do not take more than eight tablets in 24 hours. ? If the Imodium does not help in 24 hours or if the diarrhea is still severe after 12 hours, call your doctor. Call your doctor or the emergency department if you have: persistent vomiting, bloody stools, dehydration, fainting, high fever, increased pain or pain in the abdomen on the right side. Viral gastroenteritis is hard to tell from food poisoning. If other members of your family also become ill, check with your doctor or the health department. Referring Provider: SELF [[id number]] Allergies As of Date: 11/16/2017 (No Known Allergies) Date Reviewed: 11/16/2017 Reviewed by: Shelley (Thaddeus) THADDEUS Correa - Fully Assessed Reason for Visit: ED Follow-up [821] Cmt: food poisioning, tommie barrientos Primary Visit Diagnosis:Gastroenteritis [K52.9] Prescriptions as of 11/16/2017 Sig: ONDANSETRON HCL 8 MG TABLET Take 0.5 tablets by mouth dillon* MELOXICAM 7.5 MG TABLET Take 1 tablet by mouth once d* WARFARIN 5 MG TABLET Take 1 tablet by mouth once d* BUSPIRONE 10 MG TABLET TAKE 1 TABLET BY MOUTH THREE * SERTRALINE 50 MG TABLET Take 1 tablet by mouth once d* IPRATROPIUM-ALBUTEROL 0.5 MG-* Inhale 3 mL as instructed dillon* ALBUTEROL SULFATE HFA 90 MCG/* Inhale 2 Puffs as instructed * COMPOUNDED PRESCRIPTION 3 prong cane HYDROXYZINE HCL 50 MG TABLET Take 1 tablet by mouth three * ONDANSETRON 4 MG DISINTEGRATI* dissolve 1 tablet ON TONGUE e* SENNOSIDES 8.6 MG TABLET Take 1 tablet by mouth daily * MIRTAZAPINE 15 MG TABLET Take 1 tablet by mouth daily * GABAPENTIN 600 MG TABLET Take 1 tablet by mouth four t* DIVALPROEX 250 MG TABLET,MATHEUS* Take 1 tablet by mouth twice * LORAZEPAM 0.5 MG TABLET Take 1 tablet by mouth twice * PANTOPRAZOLE 40 MG TABLET,DEL* Take 1 tablet by mouth daily * METOPROLOL TARTRATE 50 MG TAB* Take 1 tablet by mouth twice * SERTRALINE 100 MG TABLET Take 1 tablet by mouth once d* FINASTERIDE 5 MG TABLET Take 1 tablet by mouth once d* ATORVASTATIN 40 MG TABLET Take 1 tablet by mouth once d* CARBAMAZEPINE ER 200 MG TABLE* Take 1 tablet by mouth twice * TAMSULOSIN 0.4 MG CAPSULE Take 1 capsule by mouth once * COMPOUNDED PRESCRIPTION Hinged knee brace- right Re: * FLUTICASONE 250 MCG-SALMETERO* Inhale 1 Puff as instructed t* LEG BRACE Please use the brace daily in* PREDNISONE 20 MG TABLET Take 20 mg by mouth once dominick* ASPIRIN 81 MG TABLET,DELAYED * Take 81 mg by mouth once dominick* WARFARIN 4 MG TABLET Take 4 mg by mouth daily as d* LIDOCAINE 5 % TOPICAL PATCH Apply 1 Patch as directed dillon* ACETAMINOPHEN 325 MG TABLET Take 2 tablets by mouth every* COMPOUNDED PRESCRIPTION 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 Hypertension [I10] Priority: D More... Hyperlipidemia [E78.5] INVALID FOR* Priority: E More... CAD (coronary artery disease) [I25.10] INVALID FOR* Priority: J More... COPD (chronic obstructive pulmonary disease) (H* Priority: C More... Tobacco use disorder [F17.200] More... Anxiety and depression [F41.9, F32.9] Priority: E More... Blindness of right eye [H54.40] Bilateral shoulder pain [M25.511, M25.512] INVALID FOR* Neck pain [M54.2] INVALID FOR* Chronic low back pain [M54.5, G89.29] INVALID FOR* Vertebral compression fracture [M48.50XA] INVALID FOR* Lumbar spondylosis [M47.816] INVALID FOR* Lumbar radiculopathy [M54.16] INVALID FOR* Rectal bleeding [K62.5] 11/13/2013 Ischemia of extremity [I99.8] INVALID FOR*02/10/2014 Priority: B More... Urinary retention [R33.9] INVALID FOR* Priority: E More... DISPOSITION AND FOLLOW-UP [V999.01] INVALID FOR* Priority: M More... Erythema of groin [L53.9] INVALID FOR*02/10/2014 Priority: B More... SUMMARY [V999.95] INVALID FOR* Priority: Very Severe More... Pain, postoperative, acute [G89.18] INVALID FOR*02/10/2014 Priority: B More... Thrombosis [I82.90] INVALID FOR*02/10/2014 Priority: A More... Anticoagulation goal of INR 2 to 3 [Z51.81, Z79*INVALID FOR* Priority: B More... Melena [K92.1] INVALID FOR* Priority: A More... IBD (inflammatory bowel disease) [K52.9] INVALID FOR* Priority: K More... Abdominal pain, other specified site [R10.9] INVALID FOR* Priority: I More... Anxiety [F41.9] INVALID FOR* Priority: K More... Urinary retention with incomplete bladder empty*INVALID FOR* Priority: C More... Hyponatremia [E87.1] INVALID FOR* More... GI bleeding [D62] INVALID FOR* Priority: B More... Anemia due to acute blood loss [D62] INVALID FOR* More... s/p left femoral endarterectomy/aortoiliac sten*INVALID FOR* Priority: A More... PVD (peripheral vascular disease) (HCC) [I73.9] INVALID FOR* More... Lupus anticoagulant disorder (HCC) [D68.62] INVALID FOR* More... Ulcerative colitis (HCC) [K51.90] INVALID FOR* Priority: G More... Smoker [F17.200] INVALID FOR* Priority: C More... Hematoma, postoperative [XMC4514] INVALID FOR*08/11/2014 Priority: C More... Lipoma of abdominal wall [D17.1] INVALID FOR* More... Ischaemic rest pain of lower extremity (HCC) [I*INVALID FOR* Illiterate [Z55.0] INVALID FOR* Pain in left shoulder [M25.512] INVALID FOR* More... Acute GI bleeding [K92.2] INVALID FOR* Priority: A More... Hypotension due to blood loss [I95.89] INVALID FOR* Priority: B More... Dysuria [R30.0] INVALID FOR* Priority: D More... Lipoma of back [D17.1] INVALID FOR* Seizure disorder (HCC) [G40.909] INVALID FOR*07/10/2017 Trigeminal neuralgia [G50.0] INVALID FOR* More... Other instructions from your clinician: [facility]: [phone] GASTROENTERITIS Your exam shows you have gastroenteritis, a common illness. Symptoms can include nausea, vomiting, stomach cramps, diarrhea, and a slight fever. Viral gastroenteritis, usually the most common form clears up in 2-3 days with bed rest and a clear liquid diet. If you are not vomiting, you can start on small sips of water or Pedialyte every 20-30 minutes; gradually increase this to 1-2 cups every hour as tolerated. Try crackers and dry toast as your symptoms improve. If you tolerate for 24 hours can increase diet to potatoes; rice; noodles; ripe bananas; applesauce; smooth peanut butter; white bread; chicken or turkey without the skin; lean ground beef; fish. Stay away from milk and dairy products, alcohol, and drugs that upset your stomach for the next week. Medications ? Take two tablespoons of Kaopectate or two tablespoons of Pepto-Bismol after each loose stool. Do not take more than eight doses. ? If Kaopectate does not help in 12 hours, take two tablets of Imodium after each loose stool. Do not take more than eight tablets in 24 hours. ? If the Imodium does not help in 24 hours or if the diarrhea is still severe after 12 hours, call your doctor. Call your doctor or the emergency department if you have: persistent vomiting, bloody stools, dehydration, fainting, high fever, increased pain or pain in the abdomen on the right side. Viral gastroenteritis is hard to tell from food poisoning. If other members of your family also become ill, check with your doctor or the health department. Encounter Status:Closed by PARK STEVENSON CNP on 11/16/17 PROGRESS Observed: 11/16/2017 Status: COMPLETED Source: [place] 8:34 AM [facility] REPOSITORY HNO ID: [id number] Author: Sonia Cortes RN Service: (none) Author Type: (none) Type: Progress Notes Filed: 11/16/2017 8:42 AM Note Text: Patient had INR completed at [facility] Patient's INR is 2.3 Patient is currently taking 7.5mg MWFSa, 5 mg all other days Patient's last dose change was 11/09/17 due to low INR at 1.8 Patient has had no medication and no change in diet. Advised patient to continue on same dose and they would only be contacted with different instructions after provider review. Written instructions were given to patient and patient verbalized understanding. Presently, patient has been scheduled for 11/30/17 for INR follow up. QI Observed: 11/16/2017 Status: COMPLETED Source: [place] 12:00 AM [facility] REPOSITORY Telephone ([employer]) MILES SIERRA ([id number]) 1950 M Date Time Provider Department 11/16/17 CARLOS MORTON During your visit today, we recorded the following information about you: Sonia Cortes RN 11/16/2017 9:17 AM Signed Accidentally closed patient's INR encounter prior to receiving physician instructions. Please advise. Patient had INR completed at [facility] Patient's INR is 2.3 Patient is currently taking 7.5mg MWFSa, 5 mg all other days Patient's last dose change was 11/09/17 due to low INR at 1.8 Patient has had no medication and no change in diet. ? Advised patient to continue on same dose and they would only be contacted with different instructions after provider review. Written instructions were given to patient and patient verbalized understanding. Presently, patient has been scheduled for 11/30/17 for INR follow up. CARLOS MORTON MD 11/16/2017 12:54 PM Signed Agree with instructions Shelley Correa MA, MA 11/16/2017 1:52 PM Signed Patient informed of results, verbalized understanding. Shelley Correa MA Allergies As of Date: 11/16/2017 (No Known Allergies) Date Reviewed: 11/16/2017 Reviewed by: Shelley Garrison) THADDEUS Correa - Fully Assessed Reason for Visit: Coumadin/INR [1207] Prescriptions as of 11/16/2017 Sig: ONDANSETRON HCL 8 MG TABLET Take 0.5 tablets by mouth dillon* MELOXICAM 7.5 MG TABLET Take 1 tablet by mouth once d* WARFARIN 5 MG TABLET Take 1 tablet by mouth once d* BUSPIRONE 10 MG TABLET TAKE 1 TABLET BY MOUTH THREE * SERTRALINE 50 MG TABLET Take 1 tablet by mouth once d* IPRATROPIUM-ALBUTEROL 0.5 MG-* Inhale 3 mL as instructed dillon* ALBUTEROL SULFATE HFA 90 MCG/* Inhale 2 Puffs as instructed * COMPOUNDED PRESCRIPTION 3 prong cane HYDROXYZINE HCL 50 MG TABLET Take 1 tablet by mouth three * ONDANSETRON 4 MG DISINTEGRATI* dissolve 1 tablet ON TONGUE e* SENNOSIDES 8.6 MG TABLET Take 1 tablet by mouth daily * MIRTAZAPINE 15 MG TABLET Take 1 tablet by mouth daily * GABAPENTIN 600 MG TABLET Take 1 tablet by mouth four t* DIVALPROEX 250 MG TABLET,MATHEUS* Take 1 tablet by mouth twice * LORAZEPAM 0.5 MG TABLET Take 1 tablet by mouth twice * PANTOPRAZOLE 40 MG TABLET,DEL* Take 1 tablet by mouth daily * METOPROLOL TARTRATE 50 MG TAB* Take 1 tablet by mouth twice * SERTRALINE 100 MG TABLET Take 1 tablet by mouth once d* FINASTERIDE 5 MG TABLET Take 1 tablet by mouth once d* ATORVASTATIN 40 MG TABLET Take 1 tablet by mouth once d* CARBAMAZEPINE ER 200 MG TABLE* Take 1 tablet by mouth twice * TAMSULOSIN 0.4 MG CAPSULE Take 1 capsule by mouth once * COMPOUNDED PRESCRIPTION Hinged knee brace- right Re: * FLUTICASONE 250 MCG-SALMETERO* Inhale 1 Puff as instructed t* LEG BRACE Please use the brace daily in* PREDNISONE 20 MG TABLET Take 20 mg by mouth once dominick* ASPIRIN 81 MG TABLET,DELAYED * Take 81 mg by mouth once dominick* WARFARIN 4 MG TABLET Take 4 mg by mouth daily as d* LIDOCAINE 5 % TOPICAL PATCH Apply 1 Patch as directed dillon* ACETAMINOPHEN 325 MG TABLET Take 2 tablets by mouth every* COMPOUNDED PRESCRIPTION 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 Hypertension [I10] Priority: D More... Hyperlipidemia [E78.5] INVALID FOR* Priority: E More... CAD (coronary artery disease) [I25.10] INVALID FOR* Priority: J More... COPD (chronic obstructive pulmonary disease) (H* Priority: C More... Tobacco use disorder [F17.200] More... Anxiety and depression [F41.9, F32.9] Priority: E More... Blindness of right eye [H54.40] Bilateral shoulder pain [M25.511, M25.512] INVALID FOR* Neck pain [M54.2] INVALID FOR* Chronic low back pain [M54.5, G89.29] INVALID FOR* Vertebral compression fracture [M48.50XA] INVALID FOR* Lumbar spondylosis [M47.816] INVALID FOR* Lumbar radiculopathy [M54.16] INVALID FOR* Rectal bleeding [K62.5] 11/13/2013 Ischemia of extremity [I99.8] INVALID FOR*02/10/2014 Priority: B More... Urinary retention [R33.9] INVALID FOR* Priority: E More... DISPOSITION AND FOLLOW-UP [V999.01] INVALID FOR* Priority: M More... Erythema of groin [L53.9] INVALID FOR*02/10/2014 Priority: B More... SUMMARY [V999.95] INVALID FOR* Priority: Very Severe More... Pain, postoperative, acute [G89.18] INVALID FOR*02/10/2014 Priority: B More... Thrombosis [I82.90] INVALID FOR*02/10/2014 Priority: A More... Anticoagulation goal of INR 2 to 3 [Z51.81, Z79*INVALID FOR* Priority: B More... Melena [K92.1] INVALID FOR* Priority: A More... IBD (inflammatory bowel disease) [K52.9] INVALID FOR* Priority: K More... Abdominal pain, other specified site [R10.9] INVALID FOR* Priority: I More... Anxiety [F41.9] INVALID FOR* Priority: K More... Urinary retention with incomplete bladder empty*INVALID FOR* Priority: C More... Hyponatremia [E87.1] INVALID FOR* More... GI bleeding [D62] INVALID FOR* Priority: B More... Anemia due to acute blood loss [D62] INVALID FOR* More... s/p left femoral endarterectomy/aortoiliac sten*INVALID FOR* Priority: A More... PVD (peripheral vascular disease) (HCC) [I73.9] INVALID FOR* More... Lupus anticoagulant disorder (HCC) [D68.62] INVALID FOR* More... Ulcerative colitis (HCC) [K51.90] INVALID FOR* Priority: G More... Smoker [F17.200] INVALID FOR* Priority: C More... Hematoma, postoperative [CXT4182] INVALID FOR*08/11/2014 Priority: C More... Lipoma of abdominal wall [D17.1] INVALID FOR* More... Ischaemic rest pain of lower extremity (HCC) [I*INVALID FOR* Illiterate [Z55.0] INVALID FOR* Pain in left shoulder [M25.512] INVALID FOR* More... Acute GI bleeding [K92.2] INVALID FOR* Priority: A More... Hypotension due to blood loss [I95.89] INVALID FOR* Priority: B More... Dysuria [R30.0] INVALID FOR* Priority: D More... Lipoma of back [D17.1] INVALID FOR* Seizure disorder (HCC) [G40.909] INVALID FOR*07/10/2017 Trigeminal neuralgia [G50.0] INVALID FOR* More... Encounter Status:Closed by KARIN ISAACS LPN on 11/16/17 EMERGENCY DEPARTMENT Observed: 11/13/2017 Status: F Source: [place] SUMMARY 11:27 PM [facility] REPOSITORY [facility] Medical Records Department [address] [place] [address] Emergency Department Summary 11/13/17 1530 MR#: [id number] Acct: [id number] Name: MILES SIERRA Rep #: [id number] : 1950 67 From: Juan Lopez MD PCP: Carlos Morton MD Status: DEP ER - ER Visit Summary Date of Service: 11/13/17 Chief Complaint: Nausea, vomiting, diarrhea History of Present Illness: The patient is a 67 M ends to the emergency department with 2 days of nausea, vomiting, diarrhea, and abdominal cramping. The patient states that he felt like he ate bad food 2 days ago. He states that about 6 hours after he ate, he began to have some diffuse abdominal cramping. He has been nauseated with multiple bouts of emesis. He has had loose watery diarrhea. He denies any blood in the diarrhea or the emesis. Patient is on Coumadin for history of peripheral vascular disease and DVT. He also has a history of ulcerative colitis. He has had no blood in his bowel movements. He denies any fevers or chills. He has not found anything that improves the symptoms. Physical Examination: Vital signs reviewed General: Well-nourished, well-developed Head: Normocephalic, atraumatic Eyes: Pupils equal and reactive, extraocular muscles intact Neck, supple, no lymphadenopathy Heart: Regular rate and rhythm Respiratory: No distress, clear bilaterally Abdomen: Soft, nontender, nondistended, no peritoneal signs Back: Nontender Extremities: Nontender, no edema, no cords Skin: Normal color no rash Neuro: Alert and oriented, no focal or lateralizing deficits Test Results: [] Emergency Department Course and Treatment: Patient has a abdomen. I cannot re-create any pain. I did obtain screening labs which are unremarkable. The patient was treated with fluids, Zofran, and Bentyl. He did have improvement of his cramping and nausea. At this time, I do not suspect a dangerous process. He has had no blood in his diarrhea. His INR is mildly subtherapeutic, but his hemoglobin is normal. I do feel that this is likely from the food that he ate. The patient will be treated symptomatically. Again, his reevaluation is unremarkable. He will be discharged home. Treatment Plan: [] Disposition: Charge Impression:. Gastroenteritis This note was generated with Silvercar dictation software. It may contain incorrect words, spelling, and punctuation that were not noted in review of the chart prior to signing ED Disposition - Plan for ED Patient: Chief Complaint: Nausea/Vomiting/Diarrhea Instructions: ED Food Poison Or Gastroenteritis Prescriptions: Ondansetron [Zofran Odt] 4 mg PO Q8H PRN PRN #10 tab PRN Reason: Nausea Dicyclomine HCl [Bentyl] 20 mg PO TIDAC #20 cap Referrals: Carlos Morton MD [Primary Care Provider] - What to do if you have Problems For any increased pain, shortness of breath, bleeding, nausea or vomiting, chest pain, or any unexpected problems, contact your Primary Care Provider. Call [facility] ([phone]) or report to the closest Emergency Room. Call 911 if necessary. 11/13/17 3869 <Electronically signed by Juan Lopez MD> Date Juan Lopez MD Cosigner Signature (If Indicated): Date CC: Carlos Morton MD CBC W/DIFF, AUTOMATED Collected: 11/13/2017 Status: F Source: [place] 3:35 PM [facility] REPOSITORY TYPE CODE TESTS RESULT OUT OF RANGE REFERENCE UNITS LAB L100.1000 4.4-11.0 K/mm3 Normal WBC 8.7 LAB L100.1200 4.6-6.2 M/mm3 Normal RBC 4.85 LAB L100.1300 13.0-16.5 g/dl Normal HGB 15.3 LAB L100.1400 40-54 % Normal HCT 46.3 LAB L100.1500 80-94 fL High MCV 95.5 LAB L100.1600 27.0-32.0 pg Normal MCH 31.5 LAB L100.1700 32-36 g/gl Normal MCHC 33.0 LAB L100.1810 11.6-14.6 % Normal RDW CV 13.2 LAB L100.1820 35.1-43.9 fl High RDW SD 45.9 LAB L100.1900 150-450 K/mm3 Normal PLT 324 LAB L100.2000 6.2-12.0 fl Normal MPV 9.6 LAB L100.2100 47-70 % High NEUT% 72.3 LAB L100.2200 19-41 % Low LY% 17.9 LAB L100.2300 0-10 % Normal MONO% 7.9 LAB L100.2400 0-5 % Normal EO% 1.3 LAB L100.2500 0-1 % Normal BASO% 0.5 LAB L100.2550 0.0-0.9 % Normal IM GRAN % 0.100 Result Comment: IG% - Immature Granulocytes (promyelocytes, myelocytes and metamyelocytes) > 1% indicates that a LEFT SHIFT is Present. LAB L100.2620 2.0-7.7 X10 3/uL Normal Absolute Neut 6.3 LAB L100.2720 0.83-4.51 X10 3/ul Normal Absolute Lymph 1.55 Performed By: #### L100.0100 #### [facility] [place], [address] COMPREHENSIVE METABOLIC Collected: 11/13/2017 Status: F Source: [facility] 3:35 PM [facility] REPOSITORY TYPE CODE TESTS RESULT OUT OF RANGE REFERENCE UNITS LAB L501.0100 74-106 mg/dL Normal GLU 98 Result Comment: Please note revised GLUCOSE reference range effective 2017. LAB L501.1000 7-18 mg/dL High BUN 24 LAB L501.1100 0.70-1.30 mg/dL Normal CREAT,SERUM 1.03 Result Comment: The validity of the calculated GFR AND GFRAA in patients over 70 years has not been determined. Clinical correlation is essential. LAB L501.1110 >60 mL/min Normal EST GFR 76 Result Comment: Non- GFR Calc LAB L501.1115 >60 mL/min Normal EST GFR - AA 92 Result Comment: GFR Calc LAB L501.1255 ml/min Normal Estimated CRCL 66.41 LAB L501.1300 10-20 RATIO High BUN/CRE 23.3 LAB L501.1500 6.4-8. g/dL Normal 2 T PROT 7.8 LAB L501.1800 3.2-5. g/dL Normal 0 ALB 4.3 LAB L501.1950 2.2-4. g/dL Normal 2 GLOB 3.5 LAB L501.2000 0.9-2. RATIO Normal 4 A/G 1.2 LAB L501.2200 8.5-10 mg/dL Normal .1 CA 9.1 LAB L501.4100 15-37 U/L Normal AST 29 LAB L501.4305 45-117 U/L Normal ALK P 85 LAB L501.4405 16-61 U/L Normal ALT 29 LAB L501.4600 0.20-1 mg/dL Normal .00 T BILI 0.30 LAB L501.5300 136-14 mmol/L Normal 5 NA 137 LAB L501.5600 3.5-5. mmol/L Normal 1 K 3.9 LAB L501.5900 98-107 mmol/L Normal CL 99 LAB L501.6100 21.0-3 mmol/L Normal 2.0 CO2 30.0 LAB L501.6200 5-15 Normal GAP 8 Performed By: #### L500.4050, L501.2450 #### [facility] [address] [facility] [place], [place], [id number] LIPASE Collected: 11/13/2017 Status: F Source: [place] 3:35 PM [facility] REPOSITORY TYPE CODE TESTS RESULT OUT OF RANGE REFERENCE UNITS LAB L501.2450 73-393 U/L Normal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 prong cane HYDROXYZINE HCL 50 MG TABLET Take 1 tablet by mouth three * ONDANSETRON 4 MG DISINTEGRATI* dissolve 1 tablet ON TONGUE e* SENNOSIDES 8.6 MG TABLET Take 1 tablet by mouth daily * MIRTAZAPINE 15 MG TABLET Take 1 tablet by mouth daily * GABAPENTIN 600 MG TABLET Take 1 tablet by mouth four t* DIVALPROEX 250 MG TABLET,MATHEUS* Take 1 tablet by mouth twice * LORAZEPAM 0.5 MG TABLET Take 1 tablet by mouth twice * PANTOPRAZOLE 40 MG TABLET,DEL* Take 1 tablet by mouth daily * METOPROLOL TARTRATE 50 MG TAB* Take 1 tablet by mouth twice * SERTRALINE 100 MG TABLET Take 1 tablet by mouth once d* FINASTERIDE 5 MG TABLET Take 1 tablet by mouth once d* ATORVASTATIN 40 MG TABLET Take 1 tablet by mouth once d* CARBAMAZEPINE ER 200 MG TABLE* Take 1 tablet by mouth twice * TAMSULOSIN 0.4 MG CAPSULE Take 1 capsule by mouth once * COMPOUNDED PRESCRIPTION Hinged knee brace- right Re: * FLUTICASONE 250 MCG-SALMETERO* Inhale 1 Puff as instructed t* LEG BRACE Please use the brace daily in* PREDNISONE 20 MG TABLET Take 20 mg by mouth once dominick* ASPIRIN 81 MG TABLET,DELAYED * Take 81 mg by mouth once dominick* WARFARIN 4 MG TABLET Take 4 mg by mouth daily as d* LIDOCAINE 5 % TOPICAL PATCH Apply 1 Patch as directed dillon* ACETAMINOPHEN 325 MG TABLET Take 2 tablets by mouth every* COMPOUNDED PRESCRIPTION 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* FENTANYL 50 MCG/HR TRANSDERMA* Apply 1 Patch as directed dillon* FERROUS SULFATE 325 MG (65 MG* Take 325 mg by mouth daily wi* DOCUSATE SODIUM 100 MG CAPSULE Take 1 capsule by mouth twice* BLOOD PRESSURE MONITOR KIT Check bp 2 to 3x daily Problem List As Of Date 11/08/2017 Noted Resolved Headache [R51] INVALID FOR* Class: 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 Hypertension [I10] Priority: D More... Hyperlipidemia [E78.5] INVALID FOR* Priority: E More... CAD (coronary artery disease) [I25.10] INVALID FOR* Priority: J More... COPD (chronic obstructive pulmonary disease) (H* Priority: C More... Tobacco use disorder [F17.200] More... Anxiety and depression [F41.9, F32.9] Priority: E More... Blindness of right eye [H54.40] Bilateral shoulder pain [M25.511, M25.512] INVALID FOR* Neck pain [M54.2] INVALID FOR* Chronic low back pain [M54.5, G89.29] INVALID FOR* Vertebral compression fracture [M48.50XA] INVALID FOR* Lumbar spondylosis [M47.816] INVALID FOR* Lumbar radiculopathy [M54.16] INVALID FOR* Rectal bleeding [K62.5] 11/13/2013 Ischemia of extremity [I99.8] INVALID FOR*02/10/2014 Priority: B More... Urinary retention [R33.9] INVALID FOR* Priority: E More... DISPOSITION AND FOLLOW-UP [V999.01] INVALID FOR* Priority: M More... Erythema of groin [L53.9] INVALID FOR*02/10/2014 Priority: B More... SUMMARY [V999.95] INVALID FOR* Priority: Very Severe More... Pain, postoperative, acute [G89.18] INVALID FOR*02/10/2014 Priority: B More... Thrombosis [I82.90] INVALID FOR*02/10/2014 Priority: A More... Anticoagulation goal of INR 2 to 3 [Z51.81, Z79*INVALID FOR* Priority: B More... Melena [K92.1] INVALID FOR* Priority: A More... IBD (inflammatory bowel disease) [K52.9] INVALID FOR* Priority: K More... Abdominal pain, other specified site [R10.9] INVALID FOR* Priority: I More... Anxiety [F41.9] INVALID FOR* Priority: K More... Urinary retention with incomplete bladder empty*INVALID FOR* Priority: C More... Hyponatremia [E87.1] INVALID FOR* More... GI bleeding [D62] INVALID FOR* Priority: B More... Anemia due to acute blood loss [D62] INVALID FOR* More... s/p left femoral endarterectomy/aortoiliac sten*INVALID FOR* Priority: A More... PVD (peripheral vascular disease) (HCC) [I73.9] INVALID FOR* More... Lupus anticoagulant disorder (HCC) [D68.62] INVALID FOR* More... Ulcerative colitis (HCC) [K51.90] INVALID FOR* Priority: G More... Smoker [F17.200] INVALID FOR* Priority: C More... Hematoma, postoperative [MRD9331] INVALID FOR*08/11/2014 Priority: C More... Lipoma of abdominal wall [D17.1] INVALID FOR* More... Ischaemic rest pain of lower extremity (HCC) [I*INVALID FOR* Illiterate [Z55.0] INVALID FOR* Pain in left shoulder [M25.512] INVALID FOR* More... Acute GI bleeding [K92.2] INVALID FOR* Priority: A More... Hypotension due to blood loss [I95.89] INVALID FOR* Priority: B More... Dysuria [R30.0] INVALID FOR* Priority: D More... Lipoma of back [D17.1] INVALID FOR* Seizure disorder (HCC) [G40.909] INVALID FOR*07/10/2017 Trigeminal neuralgia [G50.0] INVALID FOR* More... Other instructions from your clinician: Please make an eye doctor appointment SUSANNE. Prescriptions ordered this encounter Disp Refills Start End MELOXICAM 7.5 MG TABLET 30 t* 0 11/08/2017 Route: ORAL Sig: Take 1 tablet by mouth once daily. for pain. Take with food. Encounter Status:Closed by PARK STEVENSON CNP on 11/08/17 PROGRESS Observed: 11/02/2017 Status: COMPLETED Source: [place] 1:31 PM [facility] REPOSITORY HNO ID: [id number] Author: Debby Saldana LPN Service: (none) Author Type: (none) Type: Progress Notes Filed: 11/02/2017 1:33 PM Note Text: This note was created using Company [employer]. Subjective Miles Sierra is a 67 year old male. Review of Systems Objective There were no vitals taken for this visit. Physical Exam Assessment and Plan Patient returned call and said could not get in his voicemail, went over coumadin instructions as below per Dr Morton with understanding and scheduled appt for 11/09/2017 for coumadin clinic. PROGRESS Observed: 11/02/2017 Status: COMPLETED Source: [place] 12:42 PM [facility] REPOSITORY HNO ID: [id number] Author: Demian Deasi LPN Service: (none) Author Type: (none) Type: Progress Notes Filed: 11/02/2017 1:33 PM Note Text: Phoned patient and left message regarding information and to call back to schedule INR appt for next week. Demian Desai LPN PROGRESS Observed: 11/02/2017 Status: COMPLETED Source: [place] 12:37 PM [facility] REPOSITORY HNO ID: [id number] Author: Carlos Morton Service: (none) Author Type: Physician Type: Progress Notes Filed: 11/02/2017 1:33 PM Note Text: Cont same and recheck in a week PROGRESS Observed: 11/02/2017 Status: COMPLETED Source: [place] 8:56 [facility] REPOSITORY HNO ID: [id number] Author: Sonia Cortes RN Service: (none) Author Type: (none) Type: Progress Notes Filed: 11/02/2017 8:57 AM Note Text: Patient had INR completed at [facility] Patient's INR is 2.0 Patient is currently taking 5 mg MWF and 7.5 mg all other days Patient's last dose change was 08/03/17 due to INR at 3.0 Patient has had no medication and no change in diet. Advised patient that they would be contacted regarding medication dose and follow-up once reviewed by provider. After provider review, please contact patient with information and schedule follow-up appointment with coumadin clinic. EMERGENCY DEPARTMENT Observed: 10/27/2017 Status: F Source: [place] SUMMARY 3:45 PM [facility] REPOSITORY [facility] Medical Records Department [address] [place] [address] Emergency Department Summary 10/27/17 0928 MR#: [id number] Acct: [id number] Name: MILES SIERRA Rep #: [id number] : 1950 67 From: Perfecto Bush DO PCP: Carlos Morton MD Status: DEP ER - ER Visit Summary Date of Service: 10/27/17 Chief Complaint: Headache History of Present Illness: The patient is a 67 M who was seen last night for left-sided headache. He had a negative head CT and was given Benadryl without improvement. He states he was given a dose of morphine and felt better and went home. He states that by time he went to bed his headache was hurting worse. States he had migraines in the past but in the past several years has not really had any. He notes the headache is left-sided in the retro-orbital region. He describes it as throbbing sensation. He states it is affecting his vision today stating that his left eye is blurry. When asked him to describe it any further he states it just feels like his eye is numb. He is lined in the right eye. He states he has some nausea but no vomiting. He denies any light sensitivity. No rashes. Physical Examination: Afebrile vital signs are stable Gen: Well-nourished well-developed Head: Normocephalic atraumatic Eyes: Left eye PERRL EOMI. right eye demonstrates strabismus and pupillary dilatation. ENT: TMs clear no rhinorrhea moist mucous membranes Neck: Supple no lymphadenopathy no JVD nontender CVS: Regular rate rhythm no murmurs normal S1-S2 Respiratory: No distress clear to auscultation bilaterally chest nontender Abdomen: Soft nontender nondistended normal bowel sounds no masses Back: Nontender Extremity: Nontender no edema Skin: Normal color no rash Neuro: alert orientated 3 CN II-XII intact normal strength sensation reflexes gait cerebellar Psych: Normal affect normal mood Test Results: ESR 3. INR 1.5. White count 5.4. Emergency Department Course and Treatment: CT was reviewed from yesterday. Patient received Toradol Compazine and Benadryl and fluids. He states he was in a better. He received a dose of Solu-Medrol and as he was getting the dose that his headache was actually getting better. He has been resting comfortably. Patient was advised his INR was subtherapeutic and he will double his dose of Coumadin tonight and tomorrow have his doctor recheck it after the weekend. He will be discharged home to follow-up with his doctors return if worsening. Impression:. Headache This note was generated with Silvercar dictation software. It may contain incorrect words, spelling, and punctuation that were not noted in review of the chart prior to signing ED Disposition - Plan for ED Patient: Disposition: Home or Assisted Living Chief Complaint: Headache Instructions: ED Cephalgia Unspecified Referrals: Carlos Morton MD [Primary Care Provider] - (call to arrange follow up) What to do if you have Problems For any increased pain, shortness of breath, bleeding, nausea or vomiting, chest pain, or any unexpected problems, contact your Primary Care Provider. Call [facility] ([phone]) or report to the closest Emergency Room. Call 911 if necessary. 10/27/17 5972 <Electronically signed by Perfecto Bush DO> Date Perfecto Bush DO Cosigner Signature (If Indicated): Date CC: Carlos Morton MD CBC W/DIFF, AUTOMATED Collected: 10/27/2017 Status: F Source: [place] 9:30 AM [facility] REPOSITORY TYPE CODE TESTS RESULT OUT OF RANGE REFERENCE UNITS LAB L100.1000 4.4-11.0 K/mm3 Normal WBC 5.4 LAB L100.1200 4.6-6.2 M/mm3 Low RBC 4.04 LAB L100.1300 13.0-16.5 g/dl Low HGB 12.8 LAB L100.1400 40-54 % Normal HCT 40.0 LAB L100.1500 80-94 fL High MCV 99.0 LAB L100.1600 27.0-32.0 pg Normal MCH 31.7 LAB L100.1700 32-36 g/gl Normal MCHC 32.0 LAB L100.1810 11.6-14.6 % Normal RDW CV 13.4 LAB L100.1820 35.1-43.9 fl High RDW SD 49.0 LAB L100.1900 150-450 K/mm3 Normal PLT 238 LAB L100.2000 6.2-12.0 fl Normal MPV 9.7 LAB L100.2100 47-70 % Normal NEUT% 62.1 LAB L100.2200 19-41 % Normal LY% 26.2 LAB L100.2300 0-10 % Normal MONO% 7.4 LAB L100.2400 0-5 % Normal EO% 2.6 LAB L100.2500 0-1 % High BASO% 1.7 LAB L100.2550 0.0-0.9 % Normal IM GRAN % 0.000 Result Comment: IG% - Immature Granulocytes (promyelocytes, myelocytes and metamyelocytes) > 1% indicates that a LEFT SHIFT is Present. LAB L100.2620 2.0-7.7 X10 3/uL Normal Absolute Neut 3.4 LAB L100.2720 0.83-4.51 X10 3/ul Normal Absolute Lymph 1.41 Performed By: #### L100.0100, L101.9900 #### [facility] [address] [place], [address] ERYTHROCYTE SED RATE Collected: 10/27/2017 Status: F Source: [place] 9:30 AM [facility] REPOSITORY TYPE CODE TESTS RESULT OUT OF RANGE REFERENCE UNITS LAB L102.0000 0-20 mm/hr Normal SED RATE 3 Performed By: #### L100.0100, L101.9900 #### [facility] [address] [place], [address] PROTHROMBIN TIME W/INR Collected: 10/27/2017 Status: F Source: [place] 9:30 AM [facility] REPOSITORY TYPE CODE TESTS RESULT OUT OF RANGE REFERENCE UNITS LAB L300.4150 11.7-14.9 SECONDS High PROTIME 18.5 LAB L300.4200 Normal INR 1.5 Performed By: #### L300.3900 #### [facility] [address] [place], [address] EMERGENCY DEPARTMENT Observed: 10/26/2017 Status: F Source: [place] SUMMARY 11:00 PM [facility] REPOSITORY [facility] Medical Records Department [address] [place] [address] Emergency Department Summary 10/26/17 1725 MR#: [id number] Acct: [id number] Name: MILES SIERRA Rep #: [id number] : 1950 67 From: Gonzales Dixon MD PCP: Carlos Morton MD Status: DEP ER - ER Visit Summary Date of Service: 10/26/17 Chief Complaint: Headache History of Present Illness: The patient is a 67 M history of prior CVA, MA, hypertension. He has vascular stents and states he is on Coumadin. States that he has had a left sided headache for gradual onset of yesterday. He states he woke up basically with a headache. It was not thunderclap. He has no history of intracranial bleeds. There is been no trauma or fever. No sinus congestion. He does state he has chronic dryness in his right eye from trauma when he was a young male. This headache is left-sided. He denies any problems moving his arms or legs. No fever or neck pain. Physical Examination: Older male no acute distress vital signs are stable afebrile. H EENT exam right eye pupils are regular. 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 No facial droop. Normal speech. Extraocular motions are intact. Neck nontender no lymphadenopathy no meningismus. Heart regular rhythm no murmur. Lungs clear to auscultation bilaterally. Abdomen soft nontender. Moving all 4 extremities. Neurovascular intact. 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 Normal speech. No facial droop. No ataxia. Normal services mgr and sensation bilaterally both upper and lower extremities. Test Results: Patient is on Coumadin his INR is 1.7. I did CT his brain due to him being on Coumadin and it shows no bleed or acute process. There are chronic changes as read by the radiologist and reviewed by me. Emergency Department Course and Treatment: Patient was treated with IV Benadryl with limited success.. On repeat exam his pain is not significantly changed and his neurologic exam remains the same. He will be given a dose of morphine and Zofran and reassess. Repeat exam patient is doing well at 1814. His neurologic exam is unchanged. He feels comfortable and wants to be discharged home. Treatment Plan: Follow-up his primary care physician. Disposition: Discharge Impression: Acute cephalgia of uncertain etiology Anticoagulated on Coumadin This note was generated with Silvercar dictation software. It may contain incorrect words, spelling, and punctuation that were not noted in review of the chart prior to signing ED Disposition - Plan for ED Patient: Chief Complaint: Headache Referrals: Carlos Morton MD [Primary Care Provider] - What to do if you have Problems For any increased pain, shortness of breath, bleeding, nausea or vomiting, chest pain, or any unexpected problems, contact your Primary Care Provider. Call [facility] ([phone]) or report to the closest Emergency Room. Call 911 if necessary. 10/26/17 2300 <Electronically signed by Gonzales Dixon MD> Date Gonzales Dixon MD Cosigner Signature (If Indicated): Date CC: Carlos Morton MD DISCHARGE INSTRUCTION Observed: 10/26/2017 Status: F Source: [place] 11:00 PM [facility] REPOSITORY [facility] Medical Records Department [address] [place] [address] Discharge Instruction 10/26/17 1828 MR#: [id number] Acct: [id number] Name: MILES SIERRA Rep #: [id number] : 1950 67 From: Gonzales Dixon MD PCP: Carlos Morton MD Status: DEP ER ED Disposition - Plan for ED Patient: Disposition: Home or Assisted Living Chief Complaint: Headache Instructions: ED Cephalgia Unspecified Referrals: Carlos Morton MD [Primary Care Provider] - 3-5 Days if not improving Additional Instructions: Follow-up your primary care physician or return to ER feeling worse. What to do if you have Problems For any increased pain, shortness of breath, bleeding, nausea or vomiting, chest pain, or any unexpected problems, contact your Primary Care Provider. Call [facility] ([phone]) or report to the closest Emergency Room. Call 911 if necessary. 10/26/17 2300 <Electronically signed by Gonzales Dixon MD> Date Gonzales Dixon MD Cosigner Signature (If Indicated): Date CC: Carlos Morton MD PROTHROMBIN TIME W/INR Collected: 10/26/2017 Status: F Source: [place] 4:00 PM [facility] REPOSITORY TYPE CODE TESTS RESULT OUT OF RANGE REFERENCE UNITS LAB L300.4150 11.7-14.9 SECONDS High PROTIME 20.0 LAB L300.4200 Normal INR 1.7 Performed By: #### L300.3900 #### [facility] [place], [address] BRAIN/HEAD WITHOUT Observed: 10/26/2017 Status: F Source: [place] CONTRAST 3:49 PM [facility] REPOSITORY [facility] Imaging Services [address] [place] [address] Brain/Head without Contrast MR#: [id number] Acct: [id number] Name: MILES SIERRA Rep #: [id number] : 1950 M 67 From: Evelia Pitts MD PCP: Carlos Morton MD Status: REG ER Study: Brain/Head without Contrast Date of Exam: 10/26/17 Exam# [id number] Ordering Dr: Gonzales Dixon MD STUDY: CT BRAIN WITHOUT CONTRAST REASON FOR EXAM: Male, 67 years old. Headache on Coumadin. RADIATION DOSAGE (If Supplied By Facility): CTDIvol = ( 44.99 ) mGy, DLP = ( 829.85 ) mGycm TECHNIQUE: Transaxial CT imaging of the brain was performed without administration of intravenous contrast material. Individualized dose optimization techniques were used for this CT. COMPARISON: Prior head CT exam of October 17, 2015 FINDINGS: Normal soft tissue structures. Normal calvarium. There is mild cerebral atrophy with widening of the extra- axial spaces and ventricular dilatation. There are areas of decreased attenuation within the white matter tracts of the supratentorial brain, consistent with microvascular disease changes. Normal basal ganglia and thalami. Normal brainstem. Normal cerebellum. There is no intracranial hemorrhage. There are no findings of an acute ischemic infarction. Normal visualized paranasal sinuses. CT/Brain/Head without Contrast IMPRESSION: No acute intracranial findings. Negative for hemorrhage, hematoma or mass density. Mild atrophy and chronic small vessel ischemic changes. Carotid artery calcifications. Normal paranasal sinuses. Electronically Signed: Evelia Pitts MD at 16:35 EDT , Service support , CC: Carlos Morton MD; Gonzales Dixon MD Bottle Gauger: Signed PROGRESS Observed: 10/26/2017 Status: COMPLETED Source: [place] 2:48 PM [facility] REPOSITORY HNO ID: [id number] Author: Shelley Correa)THADDEUS Service: (none) Author Type: Tuyere Fitter Type: Progress Notes Filed: 10/26/2017 2:49 PM Note Text: Patient informed of results, verbalized understanding. Scheduled to have re drawn in one week Shelley oCrrea MA PROGRESS Observed: 10/26/2017 Status: COMPLETED Source: [place] 2:47 PM [facility] REPOSITORY HNO ID: [id number] Author: Shelley Correa Ma, MA Service: (none) Author Type: Tuyere Fitter Type: Progress Notes Filed: 10/26/2017 2:49 PM Note Text: This note was created using [employer] Cub[employer]. Subjective Miles Sierra is a 67 year old male. Review of Systems Objective There were no vitals taken for this visit. Physical Exam Assessment and Plan PROGRESS Observed: 10/26/2017 Status: COMPLETED Source: [place] 12:58 PM [facility] REPOSITORY HNO ID: [id number] Author: Carlos Morton Service: (none) Author Type: Physician Type: Progress Notes Filed: 10/26/2017 2:49 PM Note Text: Cont the same and recheck in 1 week PROGRESS Observed: 10/26/2017 Status: COMPLETED Source: [place] 8:44 AM [facility] REPOSITORY HNO ID: [id number] Author: Sonia Cortes RN Service: (none) Author Type: (none) Type: Progress Notes Filed: 10/26/2017 8:46 AM Note Text: Patient had INR completed at [facility] Patient's INR is 1.8 Patient is currently taking 5 mg MWF and 7.5 mg all other days Patient's last dose change was 08/03/17 due to high INR at 3.0 Patient has had no medication and no change in diet. Advised patient that they would be contacted regarding medication dose and follow-up once reviewed by provider. After provider review, please contact patient with information and schedule follow-up appointment with coumadin clinic. PROGRESS Observed: 10/19/2017 Status: COMPLETED Source: [place] 4:32 PM [facility] REPOSITORY HNO ID: [id number] Author: Beckie Medina RN Service: (none) Author Type: (none) Type: Progress Notes Filed: 10/19/2017 4:33 PM Note Text: Patient returned call. Given INR recheck instructions. Scheduled one week appointment. Beckie Medina RN PROGRESS Observed: 10/19/2017 Status: COMPLETED Source: [place] 3:52 PM [facility] REPOSITORY HNO ID: [id number] Author: Sonia Cortes RN Service: (none) Author Type: (none) Type: Progress Notes Filed: 10/19/2017 3:53 PM Note Text: Attempted to call patient again. Unable to get a hold of him. Please try to call again later if has not returned call. PROGRESS Observed: 10/19/2017 Status: COMPLETED Source: [place] 1:45 PM [facility] REPOSITORY HNO ID: [id number] Author: Sonia Cortes RN Service: (none) Author Type: (none) Type: Progress Notes Filed: 10/19/2017 1:49 PM Note Text: Left patient message to call back for INR instructions. Sonia Cortes RN PROGRESS Observed: 10/19/2017 Status: COMPLETED Source: [place] 1:08 PM [facility] REPOSITORY HNO ID: [id number] Author: Carlos Morton Service: (none) Author Type: Physician Type: Progress Notes Filed: 10/19/2017 4:33 PM Note Text: Agree that he should recheck every 2 weeks even if normal but this time I want him to recheck in a week PROGRESS Observed: 10/19/2017 Status: COMPLETED Source: [place] 10:04 AM [facility] REPOSITORY HNO ID: [id number] Author: Sonia Cortes RN Service: (none) Author Type: (none) Type: Progress Notes Filed: 10/19/2017 10:07 AM Note Text: Patient had INR completed at [facility] Patient's INR is 2.7 Patient is currently taking 5mg Tue, Sa and 7.5mg all other days although he was advised to take 5mg MWF and 7.5mg all other days at previous appt. Patient's last dose change was 08/03/17 due to high INR Patient has had no medication and no change in diet. Advised patient to continue on same dose and they would only be contacted with different instructions after provider review. Written instructions were given to patient and patient verbalized understanding. Patient states that 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 told him he needs to recheck INR every 2 weeks even if INR is WNL. Please advise and notify patient if he needs to recheck INR in 2 weeks. Sonia Cortes RN PROGRESS Observed: 10/13/2017 Status: COMPLETED Source: [place] 3:06 PM [facility] REPOSITORY HNO ID: [id number] Author: Christa Rosenbaum Service: (none) Author Type: Thoroughbred Horse Farm Manager Type: Progress Notes Filed: 10/13/2017 3:06 PM Note Text: Radiology Service Progress Note PATIENT NAME: Miles Sierra DATE OF SERVICE: October 13, 2017 TIME: 3:06 PM PATIENT IDENTITY VERIFICATION COMPLETED USING TWO (2) METHODS: Patient confirmed name verbally and Date of . PATIENT GENDER DATA: Male PATIENT RELEVANT IMPLANT DATA REVIEWED: Not Applicable RADIOLOGY DEPARTMENT: Ultrasound PERIPHERAL IV DATA: Not applicable SIGNED BY: CHRISTA ROSENBAUM RDMS RVVasu October 13, 2017 3:06 PM US SCREENING AAA Observed: 10/13/2017 Status: F Source: [place] 3:04 PM [facility] REPOSITORY * * *Final Report* * * DATE OF EXAM: Oct 13 2017 3:04PM WRU 1028 - US SCREENING AAA / PROCEDURE REASON: Encounter for screening for cardiovascular disorders * * * * Physician Interpretation * * * * ABDOMINAL AORTA SCREENING ULTRASOUND HISTORY: Screening evaluation for abdominal aortic aneurysm. TECHNIQUE: Sonography of the abdominal aorta was performed. Images were obtained and stored in a permanent archive. COMPARISON: None RESULT: AORTA (AP x TV): Proximal: 2.3x 2.5 cm Mid (Level of renal arteries): 1.7x 1.7 cm Distal: 1.4x 1.6 cm Common Iliac Arteries (AP x TV): Right: 0.5x 0.7 cm Left: 0.7x 0.8 cm Atherosclerotic plaque: present IMPRESSION: NEGATIVE STUDY FOR ABDOMINAL AORTIC ANEURYSM. Bottle Gauger: SHANELL Transcribe Date/Time: Oct 15 2017 4:37P Dictated by : CYNTHIA PRIETO MD This examination was interpreted and the report reviewed and electronically signed by: CYNTHIA PRIETO MD on Oct 15 2017 4:44PM EST [id number] COMP METABOLIC PANEL Collected: 10/13/2017 Status: F Source: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 Inhale 3 mL as instructed every 6 hours as needed (wheezing). Use over 5-15minutes per nebulizer. albuterol (PROVENTIL) 5 mg/mL nebu Inhale 0.5 mL as instructed one time only for 1 dose. 1 DOSE NOW - BACK OFFICE. PLACE 0.5 ML PER DROPPER AND 2.5 ML OF NORMAL SALINE INTO RESERVOIR. divalproex DR (DEPAKOTE) 250 mg EC tablet Take 1 tablet by mouth twice daily. LORazepam (ATIVAN) 0.5 mg tab Take 1 tablet by mouth twice daily as needed. traZODone (DESYREL) 50 mg tablet take 1 tablet by mouth at bedtime pantoprazole DR (PROTONIX) 40 mg tablet Take 1 tablet by mouth daily before breakfast. Take on empty stomach, 1/2 hr before meal. metoprolol tartrate, short acting, (LOPRESSOR) 50 mg tablet Take 1 tablet by mouth twice daily. Take twice a day with 25 mg tab sertraline (ZOLOFT) 100 mg tablet Take 1 tablet by mouth once daily. finasteride (PROSCAR) 5 mg tablet Take 1 tablet by mouth once daily. atorvastatin (LIPITOR) 40 mg tablet Take 1 tablet by mouth once daily. carBAMazepine XR (TEGRETOL XR) 200 mg 12 hr tablet Take 1 tablet by mouth twice daily. tamsulosin ER (FLOMAX) 0.4 mg cp24 Take 1 capsule by mouth once daily. COMPOUNDED PRESCRIPTION Hinged knee brace- right Re: osteoarthritis of the knee LORazepam (ATIVAN) 0.5 mg tab Take by mouth twice daily as needed. fluticasone-salmeterol (ADVAIR DISKUS) 250-50 mcg/dose dsdv Inhale 1 Puff as instructed twice daily. RINSE AND GARGLE MOUTH WITH WATER AFTER EACH USE. Leg Brace (KNEE SUPPORT BRACE[place] [facility] [place] use [place] brace daily in the morning especially if he needs to bear weight . predniSONE (DELTASONE) 20 mg tablet Take 20 mg by mouth once daily. Two tabs daily aspirin, enteric coated (ASPIRIN, ENTERIC COATED) 81 mg EC tablet Take 81 mg by mouth once daily. warfarin (JANTOVEN) 4 mg tablet Take 4 mg by mouth daily as directed. lidocaine (LIDODERM) 5 % Apply 1 Patch as directed every 24 hours. acetaminophen (TYLENOL) 325 mg tablet Take 2 tablets by mouth every 4 hours as needed for Pain. COMPOUNDED PRESCRIPTION Aerosol supplies Dx:J44.1 NPI#[id number] albuterol HFA (PROAIR HFA) 90 mcg/actuation inhaler Inhale 2 Puffs as instructed every 4 hours as needed. fentaNYL (DURAGESIC) 50 mcg/hr Apply 1 Patch as directed every 72 hours. ferrous sulfate 325 mg (65 mg iron) tablet Take 325 mg by mouth daily with breakfast. docusate sodium 100 mg capsule Take 1 capsule by mouth twice daily. Blood Pressure Monitor kit Check bp 2 to 3x daily FAMILY HISTORY Problem Relation Age of Onset - Coronary Artery Disease Mother HTN; DM - Hypertension Mother - Coronary Artery Disease Father HTN; DM - Hypertension Father - Coronary Artery Disease Sister DM - Heart Brother PPM - Heart Brother DM - Ischemic Heart Disease Maternal Grandfather - Diabetes Maternal Grandmother MVP - Ischemic Heart Disease Paternal Grandfather - MVA [OTHER] Maternal Uncle broken back - MVA [OTHER] Daughter broken back Social History Substance Use Topics - Smoking status: Former Smoker Packs/day: 0.50 Years: 50.00 Types: Cigarettes Start date: 06/19/1958 Quit date: 08/04/2015 - Smokeless tobacco: Never Used - Alcohol use No Comment: History of alcohol abuse. ANDquot;I cut that out.ANDquot; PHYSICAL EXAM BP 126/78 Pulse (!) 52 Temp 37 ?C (98.6 ?F) (Temporal Artery) Resp 16 Wt 70.8 kg (156 lb) SpO2 96% BMI 23.72 kg/m2 General Appearance: well appearing, in no acute distress, alert Skin: Skin color, texture, turgor normal for age; Head: normocephalic, atraumatic Eyes: conjunctiva pink and moist, no icterus, sclera white, non-injected Ears: external ears normal to inspection and palpation, canals clear, Left tympanic membrane normal. , Right tympanic membrane normal Nose/sinus: Nares normal. Septum midline. Mucosa normal. No drainage. Neck: Thyroid normal size and symmetric without palpable nodules, No adenopathy Oropharynx: lips normal without lesions, tongue midline and normal, soft palate, uvula, and tonsils normal, teeth absent Lungs: Negative findings: normal respiratory rate and rhythm and no chest deformities noted, Positive findings: wheezing Heart: Bradycardic RRR without murmur, gallop, or rubs. No ectopy Abdomen: Abdomen soft, non-tender. Bowel sounds normal. No masses, organomegaly Bilateral Lower Extremities: No deformities, edema, skin discoloration, clubbing or cyanosis. ABDOMINAL AORTIC ANEURYSM SCREENING TOPIC due on 2014 PNEUMOVAX AGE 65 AND OVER WITH 5YR LOOKBACK(1) due on 03/25/2018 DIABETES SCREEN due on 03/22/2020 LIPID SCREEN due on 10/29/2020 COLORECTAL CANCER SCREENING,SEE MODIFIER due on 10/17/2021 TETANUS due on 01/03/2023 PROSTATE CANCER SCREENING DISCUSSION Completed ADULT PREVNAR-13 Completed INFLUENZA Completed HEPATITIS C SCREENING Completed ASSESSMENT/PLAN: 1. Pulmonary emphysema, unspecified emphysema type (HCC) - ICD9: 492.8, ICD10: J43.9 (primary diagnosis) - Stable - Continue current medications - Follow up in 3 months, sooner for new or worsening symptoms 2. Essential hypertension - ICD9: 401.9, ICD10: I10 - good control - Continue current medication(s) - Encouraged dietary sodium restriction/DASH diet - Recommended regular aerobic exercise. - Recheck in 3 months, sooner should new symptoms or problems arise. - Goal of BP ANDlt;140/90 - Patient counselled on smoking cessation. - Recommended no refined sugar, low refined starch, healthy oil intake (olive oil), healthy protein (fish) along the lines of the Mediterranean diet. - COMP METABOLIC PANEL 3. PVD (peripheral vascular disease) (HCC) - ICD9: 443.9, ICD10: I73.9 - Stable - Recent ER 09/29/17visit related to left leg injury. - LLE Davis Duplex was normal without evidence of DVT - Follow up in 3 months, sooner for new or worsening symptoms 4. Hyperlipidemia, unspecified hyperlipidemia type - ICD9: 272.4, ICD10: E78.5 - to be determined upon return of lab results - Continue current medication. - Encouraged following a low fat, low cholesterol diet. - Discussed the benefits of regular aerobic exercise and weight loss. - Check fasting lipid panel and ALT. - Follow up in 12 weeks. - Encouraged following a low carbohydrate, healthy oil intake diet. - LIPID PANEL BASIC - COMP METABOLIC PANEL 5. Anxiety and depression - ICD9: 300.00, 311, ICD10: F41.9, F32.9 - No acute or concerning exam findings - Discontinue Trazodone, Increase Zoloft - Follow up in 3 months, sooner for new or worsening symptoms 6. Urinary retention - ICD9: 788.20, ICD10: R33.9 - Stable - Continue current medication regimen - Follow up in 3 months, sooner for new or worsening symptoms 7. Tobacco use disorder - ICD9: 305.1, ICD10: F17.200 - Cessation encouraged. - Physiologic and physical aspects of tobacco addiction as well as strategies for quitting were discussed. - Counseling was given focusing on the harmful effects of this addiction especially given the patient's medical condition(s) which will be worsened because of the chemicals in tobacco. 8. Screening for AAA (aortic abdominal aneurysm) - ICD9: V81.2, ICD10: Z13.6 - US SCREENING FOR AAA Prescription instructions reviewed with patient as applicable. Potential red flag symptoms discussed with the patient. Reviewed appropriate action plan to take if red flag symptoms occur. Patient agreeable to treatment plan. Park Stevenson APRN.TENSION WORKER Referring Provider: CARLOS MORTON [[id number]] Allergies As of Date: 10/13/2017 (No Known Allergies) Date Reviewed: 10/13/2017 Reviewed by: Berta Zazueta Ma - Fully Assessed Reason for Visit: Recheck [92] Cmt: 3 month follow up Reason For Visit History Recorded Primary Visit Diagnosis:Pulmonary emphysema, unspecified emphysema type (HCC) [J43.9] Other Visit Diagnoses:Essential hypertension [I10] PVD (peripheral vascular disease) (HCC) [I73.9] Hyperlipidemia, unspecified hyperlipidemia type [E78.5] Anxiety and depression [F41.9, F32.9] Urinary retention [R33.9] Tobacco use disorder [F17.200] Screening for AAA (aortic abdominal aneurysm) [Z13.6] Order(s):LIPID PANEL BASIC [SQLIPB] Order #: [id number] FUTURE COMP METABOLIC PANEL [SQCMP] Order #: [id number] FUTURE US SCREENING FOR AAA [[id number]] Order #: [id number] FUTURE sertraline (ZOLOFT) 50 mg tabletTake 1 tablet by mouth once daily. Total of 150mg dailyDisp: 30 tabletRfl: 5 Prescriptions as of 10/13/2017 Sig: BUSPIRONE 10 MG TABLET TAKE 1 TABLET BY MOUTH THREE * SERTRALINE 50 MG TABLET Take 1 tablet by mouth once d* COMPOUNDED PRESCRIPTION 3 prong cane HYDROXYZINE HCL 50 MG TABLET Take 1 tablet by mouth three * ONDANSETRON 4 MG DISINTEGRATI* dissolve 1 tablet ON TONGUE e* SENNOSIDES 8.6 MG TABLET Take 1 tablet by mouth daily * MIRTAZAPINE 15 MG TABLET Take 1 tablet by mouth daily * WARFARIN 5 MG TABLET Take 1 tablet by mouth once d* GABAPENTIN 600 MG TABLET Take 1 tablet by mouth four t* IPRATROPIUM-ALBUTEROL 0.5 MG-* Inhale 3 mL as instructed dillon* DIVALPROEX 250 MG TABLET,MATHEUS* Take 1 tablet by mouth twice * LORAZEPAM 0.5 MG TABLET Take 1 tablet by mouth twice * PANTOPRAZOLE 40 MG TABLET,DEL* Take 1 tablet by mouth daily * METOPROLOL TARTRATE 50 MG TAB* Take 1 tablet by mouth twice * SERTRALINE 100 MG TABLET Take 1 tablet by mouth once d* FINASTERIDE 5 MG TABLET Take 1 tablet by mouth once d* ATORVASTATIN 40 MG TABLET Take 1 tablet by mouth once d* CARBAMAZEPINE ER 200 MG TABLE* Take 1 tablet by mouth twice * TAMSULOSIN 0.4 MG CAPSULE Take 1 capsule by mouth once * COMPOUNDED PRESCRIPTION Hinged knee brace- right Re: * FLUTICASONE 250 MCG-SALMETERO* Inhale 1 Puff as instructed t* LEG BRACE Please use the brace daily in* PREDNISONE 20 MG TABLET Take 20 mg by mouth once dominick* ASPIRIN 81 MG TABLET,DELAYED * Take 81 mg by mouth once dominick* WARFARIN 4 MG TABLET Take 4 mg by mouth daily as d* LIDOCAINE 5 % TOPICAL PATCH Apply 1 Patch as directed dillon* ACETAMINOPHEN 325 MG TABLET Take 2 tablets by mouth every* COMPOUNDED PRESCRIPTION 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 Hypertension [I10] Priority: D More... Hyperlipidemia [E78.5] INVALID FOR* Priority: E More... CAD (coronary artery disease) [I25.10] INVALID FOR* Priority: J More... COPD (chronic obstructive pulmonary disease) (H* Priority: C More... Tobacco use disorder [F17.200] More... Anxiety and depression [F41.9, F32.9] Priority: E More... Blindness of right eye [H54.40] Bilateral shoulder pain [M25.511, M25.512] INVALID FOR* Neck pain [M54.2] INVALID FOR* Chronic low back pain [M54.5, G89.29] INVALID FOR* Vertebral compression fracture [M48.50XA] INVALID FOR* Lumbar spondylosis [M47.816] INVALID FOR* Lumbar radiculopathy [M54.16] INVALID FOR* Rectal bleeding [K62.5] 11/13/2013 Ischemia of extremity [I99.8] INVALID FOR*02/10/2014 Priority: B More... Urinary retention [R33.9] INVALID FOR* Priority: E More... DISPOSITION AND FOLLOW-UP [V999.01] INVALID FOR* Priority: M More... Erythema of groin [L53.9] INVALID FOR*02/10/2014 Priority: B More... SUMMARY [V999.95] INVALID FOR* Priority: Very Severe More... Pain, postoperative, acute [G89.18] INVALID FOR*02/10/2014 Priority: B More... Thrombosis [I82.90] INVALID FOR*02/10/2014 Priority: A More... Anticoagulation goal of INR 2 to 3 [Z51.81, Z79*INVALID FOR* Priority: B More... Melena [K92.1] INVALID FOR* Priority: A More... IBD (inflammatory bowel disease) [K52.9] INVALID FOR* Priority: K More... Abdominal pain, other specified site [R10.9] INVALID FOR* Priority: I More... Anxiety [F41.9] INVALID FOR* Priority: K More... Urinary retention with incomplete bladder empty*INVALID FOR* Priority: C More... Hyponatremia [E87.1] INVALID FOR* More... GI bleeding [D62] INVALID FOR* Priority: B More... Anemia due to acute blood loss [D62] INVALID FOR* More... s/p left femoral endarterectomy/aortoiliac sten*INVALID FOR* Priority: A More... PVD (peripheral vascular disease) ([facility]) [I73.9] INVALID FOR* More... Lupus anticoagulant disorder (HCC) [D68.62] INVALID FOR* More... Ulcerative colitis ([facility]) [K51.90] INVALID FOR* Priority: G More... Smoker [F17.200] INVALID FOR* Priority: C More... Hematoma, postoperative [YQY5481] INVALID FOR*08/11/2014 Priority: C More... Lipoma of abdominal wall [D17.1] INVALID FOR* More... Ischaemic rest pain of lower extremity (HCC) [I*INVALID FOR* Illiterate [Z55.0] INVALID FOR* Pain in left shoulder [M25.512] INVALID FOR* More... Acute GI bleeding [K92.2] INVALID FOR* Priority: A More... Hypotension due to blood loss [I95.89] INVALID FOR* Priority: B More... Dysuria [R30.0] INVALID FOR* Priority: D More... Lipoma of back [D17.1] INVALID FOR* Seizure disorder ([facility]) [G40.909] INVALID FOR*07/10/2017 Trigeminal neuralgia [G50.0] INVALID FOR* More... Prescriptions ordered this encounter Disp Refills Start End SERTRALINE 50 MG TABLET 30 t* 5 10/13/2017 Route: ORAL Sig: Take 1 tablet by mouth once daily. Total of 150mg daily Medications Discontinued During This Encounter traZODone (DESYREL) 50 mg tablet 30 t* 5 05/09/2017 10/13/2017 Sig: take 1 tablet by mouth at bedtime Disc: Reason for discontinue is not on file. albuterol (PROVENTIL) 5 mg/mL nebu 1 mL 0 07/27/2017 10/13/2017 Class: Back Office Route: INHALATION Sig: Inhale 0.5 mL as instructed one time only for 1 dose. 1 DOSE NOW - BACK OFFICE. PLACE 0.5 ML PER DROPPER AND 2.5 ML OF NORMAL SALINE INTO RESERVOIR. Disc: Reason for discontinue is not on file. LORazepam (ATIVAN) 0.5 mg tab 03/22/2017 10/13/2017 Class: Historical Med Route: ORAL Sig: Take by mouth twice daily as needed. Disc: Reason for discontinue is not on file. Disposition: Return in about 3 months (around 01/12/2018). Follow-up and Disposition History Recorded Encounter Status:Closed by PARK STEVENSON CNP on 10/13/17 PROGRESS Observed: 10/09/2017 Status: COMPLETED Source: [place] 6:31 PM [facility] REPOSITORY O ID: [id number] Author: Alie (Pt) Rodrick Service: (none) Author Type: Physical Therapist Type: Progress Notes Filed: 10/09/2017 6:35 PM Note Text: Episode Visit Count: 8 Therapist That Will Oversee The Plan Of Care: Alie Mensah Start of Care Date: 09/12/17 Onset Date: 09/05/17 Plan of Care Certification Date: 09/12/17 [facility] PHYSICAL THERAPY TREATMENT NOTE ASSESSMENT: Miles Sierra demonstrated improvements in decreased pain in left thigh and able to advance to blue rep band for exs as well as increased time on seated stair climber. Pt demonstrated exs with no pain reactions and is doing well with ambulation with rollator The patient will continue to benefit from continued skilled physical therapy for progression of exs. PLAN FOR NEXT VISIT: Plan of care update SUBJECTIVE: Pt notes that he had shooting pain in left thigh yesterday but today it feels stiff. Pain Score: 7/10 Pain Location: Thigh - Left ( 8/10 back) Description: Aching Frequency: Continuous Post Treatment Pain Score: No Change Pain Location: Thigh - Left;Low Back/Lumbar Spine - Left Post Treatment Pain Description: Aching OBJECTIVE MEASURES WITH LEVEL OF FUNCTION: none taken today TREATMENT: Therapeutic Exercise: 1: bluerep band trunk extension 3x12 2: blue rep band seated scapular retraction 3x12 3: blue rep band core stabilization with pedrturbation front and left side 3x15 4: seated stepper 30 rpm for 4 min. 5: AAROM for hip flexion and abduction/ adduction supine 2x15 6: hip isometric adduction with pillow seated 2x10 7: heel slides seated 2x15 8: hip abduction/ adduction blue rep band with pillow in sitting 3x10 9: active seated marches 3x10 Skilled Intervention: Patient was educated in proper exercise technique and purpose for exercises. Skilled judgment was provided in selection of appropriate interventions. Correct performance of therapeutic exercises was facilitated with visual cuing. Manual Therapy: Soft Tissue Mobilization: with tennis ball light pressure to thoracic and lumbar paraspinals x10 min. seated in chair , arms resting on table x10 minutes Skilled Intervention: Manual skills to improve joint mobility, ROM, and decrease pain. Utilized anatomy knowledge of the therapist, and assessment of patient's response to intervention. Billing: [facility]: Therapeutic Exercise ([id number]): 1:1 time: 30 minutes (2 units: 23-37 mins) [facility]: Manual Therapy ([id number]): 1:1 time: 10 minutes (1 unit: 8-22 mins) Total time: 40 minutes Alie Mensah PT CNTHERAPY Observed: 10/09/2017 Status: COMPLETED Source: [place] 2:45 PM [facility] REPOSITORY OT/PT/Speech Visit (PTWS) MILES SIERRA ([id number]) 1950 M Date Time Provider Department 10/09/17 2:45 PM ALIE MENSAH (PT) PTWS Date Time Provider Department Center 10/09/2017 2:45 PM [id number], LISA (PT) PTWS COUNTS INCLUDE 234 BEDS AT [facility] Reason for Visit: Physical Therapy [503] PT Discharge [752] Reason For Visit History Recorded Primary Visit Diagnosis:Chronic bilateral low back pain without sciatica [M54.5, G89.29] Allergies As of Date: 10/09/2017 (No Known Allergies) Date Reviewed: 09/27/2017 Reviewed by: Kelton Giron - Fully Assessed Prescriptions as of 10/09/2017 Sig: COMPOUNDED PRESCRIPTION 3 alexandreag kristi HYDROXYZINE HCL 50 MG TABLET Take 1 tablet by mouth three * ONDANSETRON 4 MG DISINTEGRATI* dissolve 1 tablet ON TONGUE e* SENNOSIDES 8.6 MG TABLET Take 1 tablet by mouth daily * MIRTAZAPINE 15 MG TABLET Take 1 tablet by mouth daily * X WARFARIN 5 MG TABLET Take 1 tablet by mouth once d* GABAPENTIN 600 MG TABLET Take 1 tablet by mouth four t* X IPRATROPIUM-ALBUTEROL 0.5 MG-* Inhale 3 mL as instructed dillon* X ALBUTEROL SULFATE CONCENTRATE* Inhale 0.5 mL as instructed o* X BUSPIRONE 10 MG TABLET Take 1 tablet by mouth three * DIVALPROEX 250 MG TABLET,MATHEUS* Take 1 tablet by mouth twice * LORAZEPAM 0.5 MG TABLET Take 1 tablet by mouth twice * X TRAZODONE 50 MG TABLET take 1 tablet by mouth at bed* PANTOPRAZOLE 40 MG TABLET,DEL* Take 1 tablet by mouth daily * METOPROLOL TARTRATE 50 MG TAB* Take 1 tablet by mouth twice * SERTRALINE 100 MG TABLET Take 1 tablet by mouth once d* FINASTERIDE 5 MG TABLET Take 1 tablet by mouth once d* ATORVASTATIN 40 MG TABLET Take 1 tablet by mouth once d* CARBAMAZEPINE ER 200 MG TABLE* Take 1 tablet by mouth twice * TAMSULOSIN 0.4 MG CAPSULE Take 1 capsule by mouth once * COMPOUNDED PRESCRIPTION Hinged knee brace- right Re: * FLUTICASONE 250 MCG-SALMETERO* Inhale 1 Puff as instructed t* LEG BRACE Please use the brace daily in* X LORAZEPAM 0.5 MG TABLET Take by mouth twice daily as* PREDNISONE 20 MG TABLET Take 20 mg by mouth once dominick* ASPIRIN 81 MG TABLET,DELAYED * Take 81 mg by mouth once dominick* WARFARIN 4 MG TABLET Take 4 mg by mouth daily as d* LIDOCAINE 5 % TOPICAL PATCH Apply 1 Patch as directed dillon* ACETAMINOPHEN 325 MG TABLET Take 2 tablets by mouth every* COMPOUNDED PRESCRIPTION 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* X ALBUTEROL SULFATE HFA 90 MCG/* Inhale 2 Puffs as instructed * FENTANYL 50 MCG/HR TRANSDERMA* Apply 1 Patch as directed dillon* FERROUS SULFATE 325 MG (65 MG* Take 325 mg by mouth daily wi* DOCUSATE SODIUM 100 MG CAPSULE Take 1 capsule by mouth twice* BLOOD PRESSURE MONITOR KIT Check bp 2 to 3x daily Progress Notes: Alie Mensah, PT 10/09/2017 6:35 PM Signed Episode Visit Count: 8 Therapist That Will Oversee The Plan Of Care: Alie Mensah Start of Care Date: 09/12/17 Onset Date: 09/05/17 Plan of Care Certification Date: 09/12/17 REHABILITATION AND SPORTS THERAPY PHYSICAL THERAPY TREATMENT NOTE ASSESSMENT: Miles Shannan Mariela demonstrated improvements in decreased pain in left thigh and able to advance to blue rep band for exs as well as increased time on seated stair climber. Pt demonstrated exs with no pain reactions and is doing well with ambulation with rollator The patient will continue to benefit from continued skilled physical therapy for progression of exs. PLAN FOR NEXT VISIT: Plan of care update SUBJECTIVE: Pt notes that he had shooting pain in left thigh yesterday but today it feels stiff. Pain Score: 7/10 Pain Location: Thigh - Left ( 8/10 back) Description: Aching Frequency: Continuous Post Treatment Pain Score: No Change Pain Location: Thigh - Left;Low Back/Lumbar Spine - Left Post Treatment Pain Description: Aching OBJECTIVE MEASURES WITH LEVEL OF FUNCTION: none taken today TREATMENT: Therapeutic Exercise: 1: bluerep band trunk extension 3x12 2: blue rep band seated scapular retraction 3x12 3: blue rep band core stabilization with pedrturbation front and left side 3x15 4: seated stepper 30 rpm for 4 min. 5: AAROM for hip flexion and abduction/ adduction supine 2x15 6: hip isometric adduction with pillow seated 2x10 7: heel slides seated 2x15 8: hip abduction/ adduction blue rep band with pillow in sitting 3x10 9: active seated marches 3x10 Skilled Intervention: Patient was educated in proper exercise technique and purpose for exercises. Skilled judgment was provided in selection of appropriate interventions. Correct performance of therapeutic exercises was facilitated with visual cuing. Manual Therapy: Soft Tissue Mobilization: with tennis ball light pressure to thoracic and lumbar paraspinals x10 min. seated in chair , arms resting on table x10 minutes Skilled Intervention: Manual skills to improve joint mobility, ROM, and decrease pain. Utilized anatomy knowledge of the therapist, and assessment of patient's response to intervention. Billing: [facility]: Therapeutic Exercise ([id number]): 1:1 time: 30 minutes (2 units: 23-37 mins) [facility]: Manual Therapy ([id number]): 1:1 time: 10 minutes (1 unit: 8-22 mins) Total time: 40 minutes CATARINA Baca PT 11/20/2017 1:13 PM Signed [facility] REHABILITATION AND SPORTS THERAPY PHYSICAL THERAPY DISCONTINUANCE OF CARE Plan of Care Period: Start of Care Date: 09/12/17 Last Visit Date: 10/09/2017 Therapy Program: The following is a summary of the interventions provided for this episode of care; Therapeutic exercise and Manual therapy Assessment: Based on most recent visit, patient was progressing as expected toward functional goals based on documented objective information regarding overall function. Unable to formally assess goal achievement due to non-compliance with therapy plan of care. Reason for Discontinuation of Care: Patient has not returned to therapy or scheduled additional follow-up appointments. Alie Mensah PT PROGRESS Observed: 10/05/2017 Status: COMPLETED Source: [place] 4:59 PM [facility] REPOSITORY HNO ID: [id number] Author: Alie NessPtPauline Mensah Service: (none) Author Type: Physical Therapist Type: Progress Notes Filed: 10/05/2017 5:02 PM Note Text: Episode Visit Count: 7 Therapist That Will Oversee The Plan Of Care: Alie Mensah Start of Care Date: 09/12/17 Onset Date: 09/05/17 Plan of Care Certification Date: 09/12/17 REHABILITATION AND SPORTS THERAPY PHYSICAL THERAPY TREATMENT NOTE ASSESSMENT: Miles Sierra demonstrated improvements in mobility and tolerance to exs. Less tightness and tenderness in left paraspinals. Primary complaint today of thigh pain but did well with seated stair climber. The patient will continue to benefit from continued skilled physical therapy for progression of LE exs PLAN FOR NEXT VISIT: Increase time with seated stair climber. SUBJECTIVE: Pt notes that his back hurts some. Thigh Hurts worst when he gets up from his recliner Pain Score: 9/10 Pain Location: Thigh - Left Description: Aching Frequency: Continuous Post Treatment Pain Score: 8/10 Pain Location: Low Back/Lumbar Spine - Left;Thigh - Left Post Treatment Pain Description: Aching OBJECTIVE MEASURES WITH LEVEL OF FUNCTION: LE AROM L Knee Flexion: 130 Degrees TREATMENT: Therapeutic Exercise: 1: green rep band trunk extension 3x15 2: green rep band seated scapular retraction 3x15 3: green rep band core stabilization with pedrturbation front and left side 3x15 4: seated stepper 30 rpm for 3 min. 5: AAROM for hip flexion and abduction/ adduction hooklying supine 2x10 6: hip isometric adduction with pillow seated 2x10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 risk 1 or more 1-2/3 Recommend addressing strengthening and balance 8-10 visits over 3 months. Consider recheck in 3 months Complex at risk 2 or more 3/3 Will likely be extended duration 10-12 visits over 3 months. Consider recheck every month for 3 months PLAN FOR NEXT VISIT: Rep band trunk extension. sit to stand, step taps in parallel bars SUBJECTIVE: Pt notes that last treatment was helpful but still with pain along thoracic and lumbar paraspinal region. Arrives today without rollator. States that he was in a hurry and did not have time to get it Pain Score: 9/10 Pain Location: Low Back/Lumbar Spine - Left Description: Aching Frequency: Continuous OBJECTIVE MEASURES WITH LEVEL OF FUNCTION: 30 Second Sit to Stand Test (reps): 4 reps ( with arms) 4 Stage Balance Test Narrow base of support (sec): 10 sec Semi-tandem base of support (sec): 10 sec Tandem base of support (sec): 10 sec Timed Up and Go (sec): 28 sec ( with st. cane) Falls Screen Test Score Fall Risk Norms Timed Up and Go 28 seconds greater than 12 seconds Norms: Male Norms: Age 60-69: normal range is 6-10 seconds 4 Stage Balance Test unable to hold tandem for 10 seconds narrow base of support: 10seconds semi-tandem: 10seconds tandem: 10seconds single leg stance: R:n/tsec L: n/tsec 30 Second Chair Stand 4repetitions below average score Below average: Men: Age: 65-69; < 12 reps indicates risk for falls TREATMENT: Therapeutic Exercise: 1: sit to stand Skilled Intervention: Patient was educated in proper exercise technique and purpose for exercises. Skilled judgment was provided in selection of appropriate interventions. Correct performance of therapeutic exercises was facilitated with verbal and visual cuing. Manual Therapy: Soft Tissue Mobilization: lacrosse ball to left paraspinals while sitting with arms supported x15 min Skilled Intervention: Manual skills to improve joint mobility, ROM, and decrease pain. Utilized anatomy knowledge of the therapist, and assessment of patient's response to intervention. Billing: [facility]: Therapeutic Exercise ([id number]): 1:1 time: 5 minutes (no charge) Manual Therapy ([id number]): 1:1 time: 15 minutes (1 unit: 8-22 mins) Total time: 20 minutes Alie Mensah PT CNTHERAPY Observed: 09/14/2017 Status: COMPLETED Source: [place] 2:45 PM [facility] REPOSITORY OT/PT/Speech Visit (PTWS) MILES SIERRA ([id number]) 1950 M Date Time Provider Department 09/14/17 2:45 PM ALIE MENSAH (PT) PTWS Date Time Provider Department Center 09/14/2017 2:45 PM [id number], LISA (PT) PTWS COUNTS INCLUDE 234 BEDS AT [facility] Reason for Visit: Physical Therapy [503] Primary Visit Diagnosis:Chronic bilateral low back pain without sciatica [M54.5, G89.29] Allergies As of Date: 09/14/2017 (No Known Allergies) Date Reviewed: 09/07/2017 Reviewed by: Kaye Monk LPN - Fully Assessed Prescriptions as of 09/14/2017 Sig: WARFARIN 5 MG TABLET Take 1 tablet by mouth once d* HYDROXYZINE HCL 50 MG TABLET Take 1 tablet by mouth three * ONDANSETRON 4 MG DISINTEGRATI* dissolve 1 tablet ON TONGUE e* GABAPENTIN 600 MG TABLET Take 1 tablet by mouth four t* IPRATROPIUM-ALBUTEROL 0.5 MG-* Inhale 3 mL as instructed dillon* ALBUTEROL SULFATE CONCENTRATE* Inhale 0.5 mL as instructed o* BUSPIRONE 10 MG TABLET Take 1 tablet by mouth three * MIRTAZAPINE 15 MG TABLET Take 1 tablet by mouth daily * DIVALPROEX 250 MG TABLET,MATHEUS* Take 1 tablet by mouth twice * LORAZEPAM 0.5 MG TABLET Take 1 tablet by mouth twice * TRAZODONE 50 MG TABLET take 1 tablet by mouth at bed* PANTOPRAZOLE 40 MG TABLET,DEL* Take 1 tablet by mouth daily * METOPROLOL TARTRATE 50 MG TAB* Take 1 tablet by mouth twice * SERTRALINE 100 MG TABLET Take 1 tablet by mouth once d* FINASTERIDE 5 MG TABLET Take 1 tablet by mouth once d* ATORVASTATIN 40 MG TABLET Take 1 tablet by mouth once d* CARBAMAZEPINE ER 200 MG TABLE* Take 1 tablet by mouth twice * TAMSULOSIN 0.4 MG CAPSULE Take 1 capsule by mouth once * COMPOUNDED PRESCRIPTION Hinged knee brace- right Re: * LORAZEPAM 0.5 MG TABLET Take by mouth twice daily as* FLUTICASONE 250 MCG-SALMETERO* Inhale 1 Puff as instructed t* LEG BRACE Please use the brace daily in* PREDNISONE 20 MG TABLET Take 20 mg by mouth once dominick* ASPIRIN 81 MG TABLET,DELAYED * Take 81 mg by mouth once dominick* WARFARIN 4 MG TABLET Take 4 mg by mouth daily as d* LIDOCAINE 5 % TOPICAL PATCH Apply 1 Patch as directed dillon* SENNOSIDES 8.6 MG TABLET Take 8.6 mg by mouth daily at* ACETAMINOPHEN 325 MG TABLET Take 2 tablets by mouth every* COMPOUNDED PRESCRIPTION 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* ALBUTEROL SULFATE HFA 90 MCG/* Inhale 2 Puffs as instructed * FENTANYL 50 MCG/HR TRANSDERMA* Apply 1 Patch as directed dillon* FERROUS SULFATE 325 MG (65 MG* Take 325 mg by mouth daily wi* DOCUSATE SODIUM 100 MG CAPSULE Take 1 capsule by mouth twice* BLOOD PRESSURE MONITOR KIT Check bp 2 to 3x daily Progress Notes: Alie Mensah, PT 09/14/2017 3:53 PM Signed Episode Visit Count: 2 Therapist That Will Oversee The Plan Of Care: Alie Mensah Start of Care Date: 09/12/17 Onset Date: 09/05/17 Plan of Care Certification Date: 09/12/17 REHABILITATION AND SPORTS THERAPY PHYSICAL THERAPY TREATMENT NOTE ASSESSMENT: Miles Sierra demonstrated difficulty with falls screen . He is inactive at risk for falls and will benefit from PT for strengthening and balance. Pt with continued pain in low back left. decreased tightness in paraspinals noted The patient will continue to benefit from continued skilled physical therapy for progression of lumbar / core and leg strengthening Based on objective finding, the patient meets the criteria for: Inactive at risk GROUP FALLS IN PAST YEAR POSITIVE RESULTS ON FALLS SCREEN SUGGESTED INTERVENTIONS SUGGESTED VISITS Active low risk 0 0/3 Recommend referral to community wellness 1 visit. Consider recheck in 3 months Active at risk 0 - 1 1/3 Recommend addressing strengthening and balance 4-6 visits over 3 months. Inactive at risk 1 or more 1-2/3 Recommend addressing strengthening and balance 8-10 visits over 3 months. Consider recheck in 3 months Complex at risk 2 or more 3/3 Will likely be extended duration 10-12 visits over 3 months. Consider recheck every month for 3 months PLAN FOR NEXT VISIT: Rep band trunk extension. sit to stand, step taps in parallel bars SUBJECTIVE: Pt notes that last treatment was helpful but still with pain along thoracic and lumbar paraspinal region. Arrives today without rollator. States that he was in a hurry and did not have time to get it Pain Score: 9/10 Pain Location: Low Back/Lumbar Spine - Left Description: Aching Frequency: Continuous OBJECTIVE MEASURES WITH LEVEL OF FUNCTION: 30 Second Sit to Stand Test (reps): 4 reps ( with arms) 4 Stage Balance Test Narrow base of support (sec): 10 sec Semi-tandem base of support (sec): 10 sec Tandem base of support (sec): 10 sec Timed Up and Go (sec): 28 sec ( with st. cane) Falls Screen Test Score Fall Risk Norms Timed Up and Go 28 seconds greater than 12 seconds Norms: Male Norms: Age 60-69: normal range is 6-10 seconds 4 Stage Balance Test unable to hold tandem for 10 seconds narrow base of support: 10seconds semi-tandem: 10seconds tandem: 10seconds single leg stance: R:n/tsec L: n/tsec 30 Second Chair Stand 4repetitions below average score Below average: Men: Age: 65-69; < 12 reps indicates risk for falls TREATMENT: Therapeutic Exercise: 1: sit to stand Skilled Intervention: Patient was educated in proper exercise technique and purpose for exercises. Skilled judgment was provided in selection of appropriate interventions. Correct performance of therapeutic exercises was facilitated with verbal and visual cuing. Manual Therapy: Soft Tissue Mobilization: lacrosse ball to left paraspinals while sitting with arms supported x15 min Skilled Intervention: Manual skills to improve joint mobility, ROM, and decrease pain. Utilized anatomy knowledge of the therapist, and assessment of patient's response to intervention. Billing: [facility]: Therapeutic Exercise ([id number]): 1:1 time: 5 minutes (no charge) Manual Therapy ([id number]): 1:1 time: 15 minutes (1 unit: 8-22 mins) Total time: 20 minutes Alie Mensah PT PROGRESS Observed: 09/12/2017 Status: COMPLETED Source: [place] 1:11 PM [facility] REPOSITORY O ID: [id number] Author: Alie (PtPauline Mensah Service: (none) Author Type: Physical Therapist Type: Progress Notes Filed: 09/12/2017 1:19 PM Note Text: Episode Visit Count: 1 Therapist That Will Oversee The Plan Of Care: Alie Mensah Start of Care Date: 09/12/17 Onset Date: 09/05/17 Plan of Care Certification Date: 09/12/17 Patient Identified by Name and Date of : Yes REHABILITATION AND SPORTS THERAPY PHYSICAL THERAPY EVALUATION PLAN OF CARE: Assessment: Miles Sierra presents with the chief complaint of low back pain left greater than right. pt with chronic back pain . Sees pain management and had recent injection to back but tried lifting a couch with pain left paraspinal region. Tightness noted in paraspinal which improved with soft tissue mobilization. Pt reports several falls . Will assess for falls. He presents with impairments of decreased trunk ROM, postural deviations, pain and decreased functional status. . He may benefit from skilled therapy services to improve back pain and improve strength and mobility to decrease risk of falls. Pt advised to use his rollator walker rather than cane. Low Back Pain Subgroup Classification Low Back Pain Subgroup Classification: Graded activity subgroup: recommended visits 12. Graded Activity Subgroup Classification based on: (objective findings, chronic history and fall risk) Prognosis: Fair Fair due to: multiple co- morbidities;clinical presentation;chronic nature of impairments Goals for Episode of Care: created on 09/12/17 through 10/13/17 Independent in home exercises. Patient will decrease pain rating by 2 points to meet minimal clinical important difference for numeric pain rating scale. Patient will be able to tolerate standing upright and daily activities without increased symptoms. Patient will report no falls. Improve performance on 4 Stage Balance Test to reflect decreased fall risk. G CODE REPORTING Based on clinical assessment and the score on the AM-PAC Scale Score Assessment Tool, the G code and corresponding severity modifiers are documented below. Evaluation: 09/12/2017 Current Status: Mobility: Walking and Moving Around: G8978 CK 40-59% impaired Goal Status: Mobility: Walking and Moving Around: G8979 CK 40-59% impaired Planned Interventions, Frequency, and Duration: Current Frequency: 2x/week Duration: 4 weeks Total Number of Visits Planned: 8 Patient to be see for Planned Treatment Interventions: Therapeutic exercise;Manual therapy;Neuromuscular re-education PLAN FOR NEXT VISIT: Will assess mobility for falls Patient demonstrates good understanding of plan of care and treatment. The above goals and plan of care were discussed and agreed upon by patient/family. SUBJECTIVE: Miles Sierra is a 67 year old male seen today for Low back pain, left greater than right . Chronic back pain for which he recieives injections, last injection 08/31 Functional Limitations: ( getting up out of chair. uses hands) Prior Level of Function: (has uses rollator and st. cane. for one year) Patient Goals: decrease back pain to prevous level Intake Information: Prescription present Previous Treatment: Injections;Pain Meds Falls Interview: Fall with injury in the last year Relevant History Employment: Retired Home Environment Patient Lives With: Family Entry To Home: Stairs;With Rail Number Of Stairs Into Home: 3 Spine History Symptoms Location at Onset: Back Pain is Worse Always: Standing Sleeping Position: Prone - head either right or left Sleep Affected by Pain: Pain awakens Previous Episodes: Yes Pain Score: 9/10 Pain Location: Low Back/Lumbar Spine - Left Description: Aching Frequency: Continuous Post Treatment Pain Score: 7/10 Pain Location: Low Back/Lumbar Spine - Left Post Treatment Pain Description: Aching OBJECTIVE MEASURES WITH LEVEL OF FUNCTION: Posture / Alignment Posture: Increased thoracic kyphosis;Rounded shoulders;Decreased lumbar lordosis Gait Assessment Gait: Independent Gait Device: Cane Gait Deviations: ( decreased adriano, equal step length) Spine Observations Spine Observations: forward flexed stooped posture Spine Palpation L Lumbar Spine Palpation Tenderness: Paraspinals Lumbar Spine AROM Lumbar Flexion: Moderate limitation Lumbar Extension: Major limitation Lumbar R Side-Bend: Minimal limitation Lumbar L Side-Bend: Moderate limitation Repeated Test Movements - Lumbar RFIS - Symptoms During: no effect KIRILL - Symptoms During: increases Static Testing - Lumbar Sit Slouched: no effect Sit Erect: worse Stand Erect: worse LE Strength R Hip Flexion: 4/5 R Knee Extension: 4/5 L Hip Flexion: 4/5 L Knee Extension: 4/5 Functional Strength Functional Strength: Extensive use of hands for sit to stand Education: Education Learning Preferences: Explanation Barriers: None Learning/educational needs: Plan of Care Education Provided: Yes, see treatment interventions for education provided Education Provided To: Patient Education Mode/Type: Explanation/Discussion Response to Education/Teach Back: States/Identifies TREATMENT: Evaluation Manual Therapy: Soft Tissue Mobilization: lacrosse ball to left paraspinals while sitting with arms supported x15 min Skilled Intervention: Manual skills to improve joint mobility, ROM, and decrease pain. Utilized anatomy knowledge of the therapist, and assessment of patient's response to intervention. Billing: [facility]: Evaluation - Moderate Complexity ([id number]) Manual Therapy ([id number]): 1:1 time: 15 minutes (1 unit: 8-22 mins) Total time: 45 minutes Alie Mensah PT CNTHERAPY Observed: 09/12/2017 Status: COMPLETED Source: [place] 10:30 AM [facility] REPOSITORY OT/PT/Speech Visit (PTWS) MILES SIERRA ([id number]) 1950 M Date Time Provider Department 09/12/17 10:30 AM ALIE MENSAH (PT) PTWS Date Time Provider Department Center 09/12/2017 10:30 AM [id number], LISA (PT) PTWS COUNTS INCLUDE 234 BEDS AT THE [facility] Reason for Visit: PT Eval [267] Patient Education [91] Primary Visit Diagnosis:Chronic bilateral low back pain without sciatica [M54.5, G89.29] Allergies As of Date: 09/12/2017 (No Known Allergies) Date Reviewed: 09/07/2017 Reviewed by: Kaye Monk LPN - Fully Assessed Prescriptions as of 09/12/2017 Sig: WARFARIN 5 MG TABLET Take 1 tablet by mouth once d* HYDROXYZINE HCL 50 MG TABLET Take 1 tablet by mouth three * ONDANSETRON 4 MG DISINTEGRATI* dissolve 1 tablet ON TONGUE e* GABAPENTIN 600 MG TABLET Take 1 tablet by mouth four t* IPRATROPIUM-ALBUTEROL 0.5 MG-* Inhale 3 mL as instructed dillon* ALBUTEROL SULFATE CONCENTRATE* Inhale 0.5 mL as instructed o* BUSPIRONE 10 MG TABLET Take 1 tablet by mouth three * MIRTAZAPINE 15 MG TABLET Take 1 tablet by mouth daily * DIVALPROEX 250 MG TABLET,MATHEUS* Take 1 tablet by mouth twice * LORAZEPAM 0.5 MG TABLET Take 1 tablet by mouth twice * TRAZODONE 50 MG TABLET take 1 tablet by mouth at bed* PANTOPRAZOLE 40 MG TABLET,DEL* Take 1 tablet by mouth daily * METOPROLOL TARTRATE 50 MG TAB* Take 1 tablet by mouth twice * SERTRALINE 100 MG TABLET Take 1 tablet by mouth once d* FINASTERIDE 5 MG TABLET Take 1 tablet by mouth once d* ATORVASTATIN 40 MG TABLET Take 1 tablet by mouth once d* CARBAMAZEPINE ER 200 MG TABLE* Take 1 tablet by mouth twice * TAMSULOSIN 0.4 MG CAPSULE Take 1 capsule by mouth once * COMPOUNDED PRESCRIPTION Hinged knee brace- right Re: * LORAZEPAM 0.5 MG TABLET Take by mouth twice daily as* FLUTICASONE 250 MCG-SALMETERO* Inhale 1 Puff as instructed t* LEG BRACE Please use the brace daily in* PREDNISONE 20 MG TABLET Take 20 mg by mouth once dominick* ASPIRIN 81 MG TABLET,DELAYED * Take 81 mg by mouth once dominick* WARFARIN 4 MG TABLET Take 4 mg by mouth daily as d* LIDOCAINE 5 % TOPICAL PATCH Apply 1 Patch as directed dillon* SENNOSIDES 8.6 MG TABLET Take 8.6 mg by mouth daily at* ACETAMINOPHEN 325 MG TABLET Take 2 tablets by mouth every* COMPOUNDED PRESCRIPTION 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* ALBUTEROL SULFATE HFA 90 MCG/* Inhale 2 Puffs as instructed * FENTANYL 50 MCG/HR TRANSDERMA* Apply 1 Patch as directed dillon* FERROUS SULFATE 325 MG (65 MG* Take 325 mg by mouth daily wi* DOCUSATE SODIUM 100 MG CAPSULE Take 1 capsule by mouth twice* BLOOD PRESSURE MONITOR KIT Check bp 2 to 3x daily Progress Notes: Alie Mensah, PT 09/12/2017 1:19 PM Signed Episode Visit Count: 1 Therapist That Will Oversee The Plan Of Care: Alie Mensah Start of Care Date: 09/12/17 Onset Date: 09/05/17 Plan of Care Certification Date: 09/12/17 Patient Identified by Name and Date of : Yes REHABILITATION AND SPORTS THERAPY PHYSICAL THERAPY EVALUATION PLAN OF CARE: Assessment: Miles Sierra presents with the chief complaint of low back pain left greater than right. pt with chronic back pain . Sees pain management and had recent injection to back but tried lifting a couch with pain left paraspinal region. Tightness noted in paraspinal which improved with soft tissue mobilization. Pt reports several falls . Will assess for falls. He presents with impairments of decreased trunk ROM, postural deviations, pain and decreased functional status. . He may benefit from skilled therapy services to improve back pain and improve strength and mobility to decrease risk of falls. Pt advised to use his rollator walker rather than cane. Low Back Pain Subgroup Classification Low Back Pain Subgroup Classification: Graded activity subgroup: recommended visits 12. Graded Activity Subgroup Classification based on: (objective findings, chronic history and fall risk) Prognosis: Fair Fair due to: multiple co- morbidities;clinical presentation;chronic nature of impairments Goals for Episode of Care: created on 09/12/17 through 10/13/17 Independent in home exercises. Patient will decrease pain rating by 2 points to meet minimal clinical important difference for numeric pain rating scale. Patient will be able to tolerate standing upright and daily activities without increased symptoms. Patient will report no falls. Improve performance on 4 Stage Balance Test to reflect decreased fall risk. G CODE REPORTING Based on clinical assessment and the score on the AM-PAC Scale Score Assessment Tool, the G code and corresponding severity modifiers are documented below. Evaluation: 09/12/2017 Current Status: Mobility: Walking and Moving Around: G8978 CK 40-59% impaired Goal Status: Mobility: Walking and Moving Around: G8979 CK 40-59% impaired Planned Interventions, Frequency, and Duration: Current Frequency: 2x/week Duration: 4 weeks Total Number of Visits Planned: 8 Patient to be see for Planned Treatment Interventions: Therapeutic exercise;Manual therapy;Neuromuscular re-education PLAN FOR NEXT VISIT: Will assess mobility for falls Patient demonstrates good understanding of plan of care and treatment. The above goals and plan of care were discussed and agreed upon by patient/family. SUBJECTIVE: Miles Sierra is a 67 year old male seen today for Low back pain, left greater than right . Chronic back pain for which he recieives injections, last injection 08/31 Functional Limitations: ( getting up out of chair. uses hands) Prior Level of Function: (has uses rollator and st. cane. for one year) Patient Goals: decrease back pain to prevous level Intake Information: Prescription present Previous Treatment: Injections;Pain Meds Falls Interview: Fall with injury in the last year Relevant History Employment: Retired Home Environment Patient Lives With: Family Entry To Home: Stairs;With Rail Number Of Stairs Into Home: 3 Spine History Symptoms Location at Onset: Back Pain is Worse Always: Standing Sleeping Position: Prone - head either right or left Sleep Affected by Pain: Pain awakens Previous Episodes: Yes Pain Score: 9/10 Pain Location: Low Back/Lumbar Spine - Left Description: Aching Frequency: Continuous Post Treatment Pain Score: 7/10 Pain Location: Low Back/Lumbar Spine - Left Post Treatment Pain Description: Aching OBJECTIVE MEASURES WITH LEVEL OF FUNCTION: Posture / Alignment Posture: Increased thoracic kyphosis;Rounded shoulders;Decreased lumbar lordosis Gait Assessment Gait: Independent Gait Device: Cane Gait Deviations: ( decreased adriano, equal step length) Spine Observations Spine Observations: forward flexed stooped posture Spine Palpation L Lumbar Spine Palpation Tenderness: Paraspinals Lumbar Spine AROM Lumbar Flexion: Moderate limitation Lumbar Extension: Major limitation Lumbar R Side-Bend: Minimal limitation Lumbar L Side-Bend: Moderate limitation Repeated Test Movements - Lumbar RFIS - Symptoms During: no effect KIRILL - Symptoms During: increases Static Testing - Lumbar Sit Slouched: no effect Sit Erect: worse Stand Erect: worse LE Strength R Hip Flexion: 4/5 R Knee Extension: 4/5 L Hip Flexion: 4/5 L Knee Extension: 4/5 Functional Strength Functional Strength: Extensive use of hands for sit to stand Education: Education Learning Preferences: Explanation Barriers: None Learning/educational needs: Plan of Care Education Provided: Yes, see treatment interventions for education provided Education Provided To: Patient Education Mode/Type: Explanation/Discussion Response to Education/Teach Back: States/Identifies TREATMENT: Evaluation Manual Therapy: Soft Tissue Mobilization: lacrosse ball to left paraspinals while sitting with arms supported x15 min Skilled Intervention: Manual skills to improve joint mobility, ROM, and decrease pain. Utilized anatomy knowledge of the therapist, and assessment of patient's response to intervention. Billing: [facility]: Evaluation - Moderate Complexity (75613) Manual Therapy (67105): 1:1 time: 15 minutes (1 unit: 8-22 mins) Total time: 45 minutes Alie Mensah PT PROGRESS Observed: 09/07/2017 Status: COMPLETED Source: [place] 1:38 PM [facility] HNO ID: [id number] Author: Carlos Morton Service: (none) Author Type: Physician Type: Progress Notes Filed: 09/07/2017 3:11 PM Note Text: Cont same agree with recheck date PROGRESS Observed: 09/07/2017 Status: COMPLETED Source: [place] 10:11 AM [facility] HNO ID: [id number] Author: Sonia Cortes RN Service: (none) Author Type: (none) Type: Progress Notes Filed: 09/07/2017 10:12 AM Note Text: Patient had INR completed at [facility] Patient's INR is 1.9 Patient is currently taking 5 mg MWF and 7.5 mg all other days Patient's last dose change was 08/03/17 due to hgih INR at 3.0 Patient has had no medication and no change in diet. Advised patient to continue on same dose and they would only be contacted with different instructions after provider review. Written instructions were given to patient and patient verbalized understanding. Presently, patient has been scheduled for 09/21/17 for INR follow up. PROGRESS Observed: 09/07/2017 Status: COMPLETED Source: [place] 9:17 AM [facility] O ID: [id number] Author: Tia Richey) CHARLES Triplett.ACE Service: (none) Author Type: Nurse Practitioner Type: Progress Notes Filed: 09/07/2017 10:52 AM Note Text: 09/07/2017 Patient presents with: Back Pain: a couple days ago was helping move a couch since then can not straighten up SUBJECTIVE: This is a 67 year old that is here today for Above Complaints. Two days ago patient was helping move a couch. Later that evening across his lower back he started to ache. He describes the pain as constant and a cramping, uncomfortable feeling. Aggravated by trying to get up. No alleviating factors. Is treated by pain management with fenatyl patches, gabapentin and Sanders for chronic back pain. Pain radiates down left leg at times. Denies leg numbness, tingling, weakness, bowel/bladder incontinence. PAST MEDICAL HISTORY Diagnosis Date - Anxiety and depression with history of suicide attempts - ASO (arteriosclerosis obliterans) Aorta, Iliac, Renal - Asthma - Blindness of right eye 1969 - Blood dyscrasia - CAD (coronary artery disease) 03/04/2013 - Chronic back pain reports broken back twice - COPD with emphysema (HCC) - Diabetes mellitus without mention of complication Diabetes mellitus (no meds) - Former smoker - GI bleeding 12/2013 secondary to AVMs - High cholesterol - Hypertension - Illiterate - MA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 busPIRone (BUSPAR) 5 mg tablet 90 t* 5 06/23/2017 07/10/2017 Route: ORAL Sig: Take 1 tablet by mouth three times daily. Disc: Reason for discontinue is not on file. Mirtazapine (REMERON) 7.5 mg tablet 30 t* 5 06/08/2017 07/10/2017 Route: ORAL Sig: Take 1 tablet by mouth daily at bedtime. Disc: Reason for discontinue is not on file. Encounter Status:Closed by CARLOS MORTON MD on 07/10/17 HOSP Observed: 07/10/2017 Status: COMPLETED Source: [place] 9:30 AM [facility] REPOSITORY Anticoagulation Visit (COUMWS) MILES SIERRA ([id number]) 1950 M Date Time Provider Department 07/10/17 9:30 AM [facility] During your visit today, we recorded the following information about you: Irlanda Guadalupe RN 07/10/2017 9:49 AM Signed patient had inr completed at [facility] patients inr is 2.4 (patients inr range is 2.0-3.0) patient is currently taking 7.5mg Mon,Wed,Fri and 5mg all other days patients last dose change was on 07/07/17 due to a low level of 1.6 (dose at that time was 5mg daily) patient has had no changes in medication except for the coumadin and no change in diet Advised patient to continue on the same dose(s) and that they would only be contacted regarding dosage and follow up instructions after review with provider, if a change is needed. Written instructions given and patient verbalized understanding. Presently scheduled in 2 weeks (07/24/17) for follow up INR sine this is the first normal reading since dose change. CARLOS MORTON MD 07/10/2017 1:09 PM Signed agree Referring Provider: CARLOS MORTON [[id number]] Allergies As of Date: 07/10/2017 (No Known Allergies) Date Reviewed: 07/10/2017 Reviewed by: Demian Desai LPN - Fully Assessed Reason for Visit: Anticoagulation [8] Visit Diagnoses:Coronary artery disease with angina pectoris, unspecified vessel or lesion type, unspecified whether [place] or transplanted heart (HCC) [I25.119] PVD (peripheral vascular disease) ([facility]) [I73.9] Prescriptions as of 07/10/2017 Sig: DIVALPROEX 250 MG TABLET,MATHEUS* Take 1 tablet by mouth twice * X BUSPIRONE 5 MG TABLET Take 1 tablet by mouth three * X MIRTAZAPINE 7.5 MG TABLET Take 1 tablet by mouth daily * LORAZEPAM 0.5 MG TABLET Take 1 tablet by mouth twice * TRAZODONE 50 MG TABLET take 1 tablet by mouth at bed* GABAPENTIN 600 MG TABLET Take 1 tablet by mouth four t* PANTOPRAZOLE 40 MG TABLET,DEL* Take 1 tablet by mouth daily * METOPROLOL TARTRATE 50 MG TAB* Take 1 tablet by mouth twice * SERTRALINE 100 MG TABLET Take 1 tablet by mouth once d* FINASTERIDE 5 MG TABLET Take 1 tablet by mouth once d* ATORVASTATIN 40 MG TABLET Take 1 tablet by mouth once d* CARBAMAZEPINE ER 200 MG TABLE* Take 1 tablet by mouth twice * TAMSULOSIN 0.4 MG CAPSULE Take 1 capsule by mouth once * WARFARIN 5 MG TABLET Take 1 tablet by mouth once d* ONDANSETRON 4 MG DISINTEGRATI* Take 1 tablet by mouth every * IPRATROPIUM-ALBUTEROL 0.5 MG-* Inhale 3 mL as instructed dillon* COMPOUNDED PRESCRIPTION Hinged knee brace- right Re: * LORAZEPAM 0.5 MG TABLET Take by mouth twice daily as* FLUTICASONE 250 MCG-SALMETERO* Inhale 1 Puff as instructed t* LEG BRACE Please use the brace daily in* PREDNISONE 20 MG TABLET Take 20 mg by mouth once dominick* ASPIRIN 81 MG TABLET,DELAYED * Take 81 mg by mouth once dominick* WARFARIN 4 MG TABLET Take 4 mg by mouth daily as d* LIDOCAINE 5 % TOPICAL PATCH Apply 1 Patch as directed dillon* SENNOSIDES 8.6 MG TABLET Take 8.6 mg by mouth daily at* ACETAMINOPHEN 325 MG TABLET Take 2 tablets by mouth every* COMPOUNDED PRESCRIPTION 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 Hypertension [I10] Priority: D More... Hyperlipidemia [E78.5] INVALID FOR* Priority: E More... CAD (coronary artery disease) [I25.10] INVALID FOR* Priority: J More... COPD (chronic obstructive pulmonary disease) (H* Priority: C More... Tobacco use disorder [F17.200] More... Anxiety and depression [F41.8] Priority: E More... Blindness of right eye [H54.40] Bilateral shoulder pain [M25.511, M25.512] INVALID FOR* Neck pain [M54.2] INVALID FOR* Chronic low back pain [M54.5, G89.29] INVALID FOR* Vertebral compression fracture [M48.50XA] INVALID FOR* Lumbar spondylosis [M47.816] INVALID FOR* Lumbar radiculopathy [M54.16] INVALID FOR* Rectal bleeding [K62.5] 11/13/2013 Ischemia of extremity [I99.8] INVALID FOR*02/10/2014 Priority: B More... Urinary retention [R33.9] INVALID FOR* Priority: E More... DISPOSITION AND FOLLOW-UP [V999.01] INVALID FOR* Priority: M More... Erythema of groin [L53.9] INVALID FOR*02/10/2014 Priority: B More... SUMMARY [V999.95] INVALID FOR* Priority: Very Severe More... Pain, postoperative, acute [G89.18] INVALID FOR*02/10/2014 Priority: B More... Thrombosis [I82.90] INVALID FOR*02/10/2014 Priority: A More... Anticoagulation goal of INR 2 to 3 [Z51.81, Z79*INVALID FOR* Priority: B More... Melena [K92.1] INVALID FOR* Priority: A More... IBD (inflammatory bowel disease) [K52.9] INVALID FOR* Priority: K More... Abdominal pain, other specified site [R10.9] INVALID FOR* Priority: I More... Anxiety [F41.9] INVALID FOR* Priority: K More... Urinary retention with incomplete bladder empty*INVALID FOR* Priority: C More... Hyponatremia [E87.1] INVALID FOR* More... GI bleeding [D62] INVALID FOR* Priority: B More... Anemia due to acute blood loss [D62] INVALID FOR* More... s/p left femoral endarterectomy/aortoiliac sten*INVALID FOR* Priority: A More... PVD (peripheral vascular disease) ([facility]) [I73.9] INVALID FOR* More... Lupus anticoagulant disorder ([facility]) [D68.62] INVALID FOR* More... Ulcerative colitis ([facility]) [K51.90] INVALID FOR* Priority: G More... Smoker [F17.200] INVALID FOR* Priority: C More... Hematoma, postoperative [XVU9206] INVALID FOR*08/11/2014 Priority: C More... Lipoma of abdominal wall [D17.1] INVALID FOR* More... Ischaemic rest pain of lower extremity (HCC) [I*INVALID FOR* Illiterate [Z55.0] INVALID FOR* Pain in left shoulder [M25.512] INVALID FOR* More... Acute GI bleeding [K92.2] INVALID FOR* Priority: A More... Hypotension due to blood loss [I95.89] INVALID FOR* Priority: B More... Dysuria [R30.0] INVALID FOR* Priority: D More... Lipoma of back [D17.1] INVALID FOR* Seizure disorder (HCC) [G40.909] INVALID FOR* Trigeminal neuralgia [G50.0] INVALID FOR* More... Follow-up and Disposition History Recorded Encounter Status:Closed by IRLANDA GUADALUPE RN on 07/10/17 PROGRESS Observed: 07/07/2017 Status: COMPLETED Source: [place] 4:48 PM [facility] REPOSITORY HNO ID: [id number] Author: Karin Isaacs LPN Service: (none) Author Type: (none) Type: Progress Notes Filed: 07/10/2017 8:34 AM Note Text: left message on [employer] mail with instructions and to call office to confirm message received. PROGRESS Observed: 07/07/2017 Status: COMPLETED Source: [place] 4:31 PM [facility] REPOSITORY HNO ID: [id number] Author: Carlos Morton Service: (none) Author Type: Physician Type: Progress Notes Filed: 07/10/2017 8:34 AM Note Text: Take 7.5 mgs on MWF and 5 mgs the rest of the week, recheck in a weeks time PROGRESS Observed: 07/07/2017 Status: COMPLETED Source: [place] 2:31 PM [facility] REPOSITORY HNO ID: [id number] Author: Irlanda Guadalupe RN Service: (none) Author Type: (none) Type: Progress Notes Filed: 07/07/2017 2:33 PM Note Text: patient had inr completed at [facility] patients inr is 1.6 (patients inr range is 2.0-3.0) patient is currently taking 5mg daily patients last dose change was on 06/09/17 due to a low level of 1.3 (dose at that time was 5mg Mon,Mon and 2.5mg all other days) patient has had no changes in medication and no change in diet Advised patient that they would be contacted regarding medication dose and when to follow up after information is reviewed by provider. After provider review please contact the patient with information and schedule follow up appointment with coumadin clinic. FYI - patient has been scheduled for a follow up inr on Monday07/10/17 due appt with pcp this day HOSP Observed: 07/07/2017 Status: COMPLETED Source: [place] 1:45 PM [facility] REPOSITORY Anticoagulation Visit (COUMWS) MILES SIERRA ([id number]) 1950 M Date Time Provider Department 07/07/17 1:45 PM [facility] During your visit today, we recorded the following information about you: Irlanda Guadalupe RN 07/07/2017 2:33 PM Signed patient had inr completed at [facility] patients inr is 1.6 (patients inr range is 2.0-3.0) patient is currently taking 5mg daily patients last dose change was on 06/09/17 due to a low level of 1.3 (dose at that time was 5mg Mon,Wed and 2.5mg all other days) patient has had no changes in medication and no change in diet Advised patient that they would be contacted regarding medication dose and when to follow up after information is reviewed by provider. After provider review please contact the patient with information and schedule follow up appointment with coumadin clinic. FYI - patient has been scheduled for a follow up inr on Monday07/10/17 due appt with pcp this day CARLOS MORTON MD 07/10/2017 8:34 AM Signed Take 7.5 mgs on MWF and 5 mgs the rest of the week, recheck in a weeks time Karin Isaacs LPN 07/10/2017 8:34 AM Signed left message on [employer] voice mail with instructions and to call office to confirm message received. Referring Provider: CARLOS MORTON [[id number]] Allergies As of Date: 07/07/2017 (No Known Allergies) Date Reviewed: 07/07/2017 Reviewed by: Irlanda Guadalupe RN - Fully Assessed Reason for Visit: Anticoagulation [8] Visit Diagnoses:Coronary artery disease with angina pectoris, unspecified vessel or lesion type, unspecified whether [place] or transplanted heart (HCC) [I25.119] PVD (peripheral vascular disease) ([facility]) [I73.9] Prescriptions as of 07/07/2017 Sig: DIVALPROEX 250 MG TABLET,MATHEUS* Take 1 tablet by mouth twice * HYDROCODONE 5 MG-ACETAMINOPHE* Take 1 tablet by mouth every * BUSPIRONE 5 MG TABLET Take 1 tablet by mouth three * MIRTAZAPINE 7.5 MG TABLET Take 1 tablet by mouth daily * LORAZEPAM 0.5 MG TABLET Take 1 tablet by mouth twice * TRAZODONE 50 MG TABLET take 1 tablet by mouth at bed* GABAPENTIN 600 MG TABLET Take 1 tablet by mouth four t* PANTOPRAZOLE 40 MG TABLET,DEL* Take 1 tablet by mouth daily * METOPROLOL TARTRATE 50 MG TAB* Take 1 tablet by mouth twice * SERTRALINE 100 MG TABLET Take 1 tablet by mouth once d* FINASTERIDE 5 MG TABLET Take 1 tablet by mouth once d* ATORVASTATIN 40 MG TABLET Take 1 tablet by mouth once d* CARBAMAZEPINE ER 200 MG TABLE* Take 1 tablet by mouth twice * TAMSULOSIN 0.4 MG CAPSULE Take 1 capsule by mouth once * WARFARIN 5 MG TABLET Take 1 tablet by mouth once d* ONDANSETRON 4 MG DISINTEGRATI* Take 1 tablet by mouth every * IPRATROPIUM-ALBUTEROL 0.5 MG-* Inhale 3 mL as instructed dillon* COMPOUNDED PRESCRIPTION Hinged knee brace- right Re: * LORAZEPAM 0.5 MG TABLET Take by mouth twice daily as* FLUTICASONE 250 MCG-SALMETERO* Inhale 1 Puff as instructed t* LEG BRACE Please use the brace daily in* PREDNISONE 20 MG TABLET Take 20 mg by mouth once dominick* ASPIRIN 81 MG TABLET,DELAYED * Take 81 mg by mouth once dominick* WARFARIN 4 MG TABLET Take 4 mg by mouth daily as d* LIDOCAINE 5 % TOPICAL PATCH Apply 1 Patch as directed dillon* SENNOSIDES 8.6 MG TABLET Take 8.6 mg by mouth daily at* ACETAMINOPHEN 325 MG TABLET Take 2 tablets by mouth every* COMPOUNDED PRESCRIPTION 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 Hypertension [I10] Priority: D More... Hyperlipidemia [E78.5] INVALID FOR* Priority: E More... CAD (coronary artery disease) [I25.10] INVALID FOR* Priority: J More... COPD (chronic obstructive pulmonary disease) (H* Priority: C More... Tobacco use disorder [F17.200] More... Anxiety and depression [F41.8] Priority: E More... Blindness of right eye [H54.40] Bilateral shoulder pain [M25.511, M25.512] INVALID FOR* Neck pain [M54.2] INVALID FOR* Chronic low back pain [M54.5, G89.29] INVALID FOR* Vertebral compression fracture [M48.50XA] INVALID FOR* Lumbar spondylosis [M47.816] INVALID FOR* Lumbar radiculopathy [M54.16] INVALID FOR* Rectal bleeding [K62.5] 11/13/2013 Ischemia of extremity [I99.8] INVALID FOR*02/10/2014 Priority: B More... Urinary retention [R33.9] INVALID FOR* Priority: E More... DISPOSITION AND FOLLOW-UP [V999.01] INVALID FOR* Priority: M More... Erythema of groin [L53.9] INVALID FOR*02/10/2014 Priority: B More... SUMMARY [V999.95] INVALID FOR* Priority: Very Severe More... Pain, postoperative, acute [G89.18] INVALID FOR*02/10/2014 Priority: B More... Thrombosis [I82.90] INVALID FOR*02/10/2014 Priority: A More... Anticoagulation goal of INR 2 to 3 [Z51.81, Z79*INVALID FOR* Priority: B More... Melena [K92.1] INVALID FOR* Priority: A More... IBD (inflammatory bowel disease) [K52.9] INVALID FOR* Priority: K More... Abdominal pain, other specified site [R10.9] INVALID FOR* Priority: I More... Anxiety [F41.9] INVALID FOR* Priority: K More... Urinary retention with incomplete bladder empty*INVALID FOR* Priority: C More... Hyponatremia [E87.1] INVALID FOR* More... GI bleeding [D62] INVALID FOR* Priority: B More... Anemia due to acute blood loss [D62] INVALID FOR* More... s/p left femoral endarterectomy/aortoiliac sten*INVALID FOR* Priority: A More... PVD (peripheral vascular disease) (HCC) [I73.9] INVALID FOR* More... Lupus anticoagulant disorder (HCC) [D68.62] INVALID FOR* More... Ulcerative colitis (HCC) [K51.90] INVALID FOR* Priority: G More... Smoker [F17.200] INVALID FOR* Priority: C More... Hematoma, postoperative [SVM3589] INVALID FOR*08/11/2014 Priority: C More... Lipoma of abdominal wall [D17.1] INVALID FOR* More... Ischaemic rest pain of lower extremity (HCC) [I*INVALID FOR* Illiterate [Z55.0] INVALID FOR* Pain in left shoulder [M25.512] INVALID FOR* More... Acute GI bleeding [K92.2] INVALID FOR* Priority: A More... Hypotension due to blood loss [I95.89] INVALID FOR* Priority: B More... Dysuria [R30.0] INVALID FOR* Priority: D More... Lipoma of back [D17.1] INVALID FOR* Seizure disorder (HCC) [G40.909] INVALID FOR* Trigeminal neuralgia [G50.0] INVALID FOR* More... Follow-up and Disposition History Recorded Encounter Status:Closed by IRLANDA GUADALUPE RN on 07/10/17 KNEE 4 OR MORE Observed: 07/04/2017 Status: F Source: [place] VIEWS 12:38 PM [facility] REPOSITORY [facility] Imaging Services [address] [place] [address] Knee 4 or More Views MR#: [id number] Acct: [id number] Name: MILES SIERRA Rep #: [id number] : 1950 M 67 From: Jasson Plata MD PCP: Carlos Morton MD Status: REG CLI Study: Knee 4 or More Views Date of Exam: 07/04/17 Exam# [id number] Ordering Dr: Elisha Flowers MD STUDY: X-RAY - RIGHT KNEE REASON FOR EXAM: Male, 67 years old. Knee pain following multiple falls. TECHNIQUE: 4 view(s) of the knee. COMPARISON: None. FINDINGS: Normal visualized distal femur. Normal visualized proximal tibia and fibula. Normal proximal tibiofibular articulation. Normal medial femorotibial compartment. Normal lateral femorotibial compartment. Normal patellofemoral articulation. There are atherosclerotic calcifications. RAD/Knee 4 or More Views IMPRESSION: No acute abnormality is seen. Electronically Signed: Jasson Plata MD at 13:35 EST Tel [phone], Service support , CC: Elisha Flowers MD; Carlos Morton MD Bottle Gauger: Signed KNEE 4 OR MORE Observed: 07/04/2017 Status: F Source: [place] VIEWS 12:38 PM [facility] REPOSITORY [facility] Imaging Services [address] [place] [id number] Knee 4 or More Views MR#: [id number] Acct: [id number] Name: MILES SIERRA Rep #: [id number] : 1950 67 From: Jasson Plata MD PCP: Carlos Morton MD Status: REG CLI Study: Knee 4 or More Views Date of Exam: 07/04/17 Exam# [id number] Ordering Dr: Elisha Flowers MD STUDY: X-RAY - LEFT KNEE REASON FOR EXAM: Male, 67 years old. Knee pain. Multiple falls. TECHNIQUE: 4 view(s) of the knee. COMPARISON: None. FINDINGS: Normal visualized distal femur. Normal visualized proximal tibia and fibula. Normal proximal tibiofibular articulation. Normal medial femorotibial compartment. Normal lateral femorotibial compartment. Normal patellofemoral articulation. There are atherosclerotic calcifications. RAD/Knee 4 or More Views IMPRESSION: No acute abnormality is seen. Electronically Signed: Jasson Plata MD at 13:36 EST Tel [phone], Service support , CC: Elisha Flowers MD; Carlos Morton MD Bottle Gauger: Signed OBSOLETE Observed: 06/29/2017 Status: COMPLETED Source: [place] 12:00 AM [facility] REPOSITORY Refill (INTMWS) MILES SIERRA ([id number]) 1950 M Date Time Provider Department 06/29/17 CARLOS MORTON During your visit today, we recorded the following information about you: Caity Salmeron Psr 06/29/2017 10:02 AM Signed Patient has been identified by name and date of : Yes Pending Prescriptions Disp Refills HYDROCODONE 5 MG-ACETAMINOPHEN 325 MG TABLET Sig: Take 1 tablet by mouth every 6 hours as needed for Pain. JOHN Class: C-II NAVI: No RX INSTRUCTIONS: Patient is out of the medication - asking if he can order picker today? Print and leave at the Medical Records front services agent. Call Giovana Bhakta at: [phone] Caity Salmeron Psr Natasha Garcia LPN 06/29/2017 1:37 PM Signed Patient has been identified by name and date of : Yes Patient phones for refill(s): Pending Prescriptions Disp Refills HYDROCODONE 5 MG-ACETAMINOPHEN 325 MG TABLET Sig: Take 1 tablet by mouth every 6 hours as needed for Pain.Earliest Fill Date: 06/29/17 JOHN Class: C-II NAVI: No Date of last office visit in primary care: 05/31/2017 3-4 month follow-up scheduled w/PCP: 07/10/2017 Last 2 Encounter Wt Readings: Date: Wt: 05/31/2017 72.1 kg (159 lb) 03/22/2017 76.2 kg (168 lb) Previous labs/tests for medication: Not applicable Please advise. Thank you. Natasha Desai LPN 06/30/2017 9:12 AM Signed Left message to notify patient that written rx will be in medical records to be picked up. Demian Desai LPN Allergies As of Date: 06/29/2017 (No Known Allergies) Date Reviewed: 06/16/2017 Reviewed by: Irlanda Guadalupe RN - Fully Assessed Reason for Visit: Refill Request [94] Primary Visit Diagnosis:s/p left femoral endarterectomy/aortoiliac stenting 10/2013 [I73.9] Order(s):HYDROcodone-acetaminophen (NORCO) 5-325 mg per tabletTake 1 tablet by mouth every 6 hours as needed for Pain for up to 7 days. Earliest Fill Date: 06/30/17Disp: 30 tabletRfl: 0 Prescriptions as of 06/29/2017 Sig: HYDROCODONE 5 MG-ACETAMINOPHE* Take 1 tablet by mouth every * BUSPIRONE 5 MG TABLET Take 1 tablet by mouth three * MIRTAZAPINE 7.5 MG TABLET Take 1 tablet by mouth daily * LORAZEPAM 0.5 MG TABLET Take 1 tablet by mouth twice * TRAZODONE 50 MG TABLET take 1 tablet by mouth at bed* GABAPENTIN 600 MG TABLET Take 1 tablet by mouth four t* PANTOPRAZOLE 40 MG TABLET,DEL* Take 1 tablet by mouth daily * METOPROLOL TARTRATE 50 MG TAB* Take 1 tablet by mouth twice * SERTRALINE 100 MG TABLET Take 1 tablet by mouth once d* FINASTERIDE 5 MG TABLET Take 1 tablet by mouth once d* ATORVASTATIN 40 MG TABLET Take 1 tablet by mouth once d* CARBAMAZEPINE ER 200 MG TABLE* Take 1 tablet by mouth twice * TAMSULOSIN 0.4 MG CAPSULE Take 1 capsule by mouth once * WARFARIN 5 MG TABLET Take 1 tablet by mouth once d* ONDANSETRON 4 MG DISINTEGRATI* Take 1 tablet by mouth every * IPRATROPIUM-ALBUTEROL 0.5 MG-* Inhale 3 mL as instructed dillon* COMPOUNDED PRESCRIPTION Hinged knee brace- right Re: * LORAZEPAM 0.5 MG TABLET Take by mouth twice daily as* FLUTICASONE 250 MCG-SALMETERO* Inhale 1 Puff as instructed t* LEG BRACE Please use the brace daily in* PREDNISONE 20 MG TABLET Take 20 mg by mouth once dominick* ASPIRIN 81 MG TABLET,DELAYED * Take 81 mg by mouth once dominick* WARFARIN 4 MG TABLET Take 4 mg by mouth daily as d* LIDOCAINE 5 % TOPICAL PATCH Apply 1 Patch as directed dillon* SENNOSIDES 8.6 MG TABLET Take 8.6 mg by mouth daily at* ACETAMINOPHEN 325 MG TABLET Take 2 tablets by mouth every* COMPOUNDED PRESCRIPTION 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 Hypertension [I10] Priority: D More... Hyperlipidemia [E78.5] INVALID FOR* Priority: E More... CAD (coronary artery disease) [I25.10] INVALID FOR* Priority: J More... COPD (chronic obstructive pulmonary disease) (H* Priority: C More... Tobacco use disorder [F17.200] More... Anxiety and depression [F41.8] Priority: E More... Blindness of right eye [H54.40] Bilateral shoulder pain [M25.511, M25.512] INVALID FOR* Neck pain [M54.2] INVALID FOR* Chronic low back pain [M54.5, G89.29] INVALID FOR* Vertebral compression fracture [M48.50XA] INVALID FOR* Lumbar spondylosis [M47.816] INVALID FOR* Lumbar radiculopathy [M54.16] INVALID FOR* Rectal bleeding [K62.5] 11/13/2013 Ischemia of extremity [I99.8] INVALID FOR*02/10/2014 Priority: B More... Urinary retention [R33.9] INVALID FOR* Priority: E More... DISPOSITION AND FOLLOW-UP [V999.01] INVALID FOR* Priority: M More... Erythema of groin [L53.9] INVALID FOR*02/10/2014 Priority: B More... SUMMARY [V999.95] INVALID FOR* Priority: Very Severe More... Pain, postoperative, acute [G89.18] INVALID FOR*02/10/2014 Priority: B More... Thrombosis [I82.90] INVALID FOR*02/10/2014 Priority: A More... Anticoagulation goal of INR 2 to 3 [Z51.81, Z79*INVALID FOR* Priority: B More... Melena [K92.1] INVALID FOR* Priority: A More... IBD (inflammatory bowel disease) [K52.9] INVALID FOR* Priority: K More... Abdominal pain, other specified site [R10.9] INVALID FOR* Priority: I More... Anxiety [F41.9] INVALID FOR* Priority: K More... Urinary retention with incomplete bladder empty*INVALID FOR* Priority: C More... Hyponatremia [E87.1] INVALID FOR* More... GI bleeding [D62] INVALID FOR* Priority: B More... Anemia due to acute blood loss [D62] INVALID FOR* More... s/p left femoral endarterectomy/aortoiliac sten*INVALID FOR* Priority: A More... PVD (peripheral vascular disease) (HCC) [I73.9] INVALID FOR* More... Lupus anticoagulant disorder (HCC) [D68.62] INVALID FOR* More... Ulcerative colitis (HCC) [K51.90] INVALID FOR* Priority: G More... Smoker [F17.200] INVALID FOR* Priority: C More... Hematoma, postoperative [WHD5133] INVALID FOR*08/11/2014 Priority: C More... Lipoma of abdominal wall [D17.1] INVALID FOR* More... Ischaemic rest pain of lower extremity (HCC) [I*INVALID FOR* Illiterate [Z55.0] INVALID FOR* Pain in left shoulder [M25.512] INVALID FOR* More... Acute GI bleeding [K92.2] INVALID FOR* Priority: A More... Hypotension due to blood loss [I95.89] INVALID FOR* Priority: B More... Dysuria [R30.0] INVALID FOR* Priority: D More... Lipoma of back [D17.1] INVALID FOR* Prescriptions ordered this encounter Disp Refills Start End HYDROCODONE 5 MG-ACETAMINOPHEN 325 M* 30 t* 0 06/30/2017 07/07/2017 Class: Print RX Route: ORAL Sig: Take 1 tablet by mouth every 6 hours as needed for Pain for up to 7 days. Earliest Fill Date: 06/30/17 Medications Discontinued During This Encounter HYDROcodone-acetaminophen (NORCO) 5-* 06/30/2017 Class: Historical Med Route: ORAL Sig: Take 1 tablet by mouth every 6 hours as needed for Pain. Disc: Reason for discontinue is not on file. Encounter Status:Closed by DEMIAN DESAI LPN on 06/30/17 RACHEL Observed: 06/27/2017 Status: COMPLETED Source: [place] 12:00 AM [facility] REPOSITORY [facility] MILES SIERRA ([id number]) 1950 M Date Time Provider Department 06/27/17 [facility] visit today, we recorded the following information about you: Allergies As of Date: 06/27/2017 (No Known Allergies) Date Reviewed: 06/16/2017 Reviewed by: Irlanda Guadalupe RN - Fully Assessed Visit Diagnosis:Medication management [Z79.899] Order(s):LIPID PANEL BASIC [SQLIPB] Order #: [id number] FUTURE Prescriptions as of 06/27/2017 Sig: X BUSPIRONE 5 MG TABLET Take 1 tablet by mouth three * X MIRTAZAPINE 7.5 MG TABLET Take 1 tablet by mouth daily * LORAZEPAM 0.5 MG TABLET Take 1 tablet by mouth twice * TRAZODONE 50 MG TABLET take 1 tablet by mouth at bed* X GABAPENTIN 600 MG TABLET Take 1 tablet by mouth four t* PANTOPRAZOLE 40 MG TABLET,DEL* Take 1 tablet by mouth daily * METOPROLOL TARTRATE 50 MG TAB* Take 1 tablet by mouth twice * SERTRALINE 100 MG TABLET Take 1 tablet by mouth once d* FINASTERIDE 5 MG TABLET Take 1 tablet by mouth once d* ATORVASTATIN 40 MG TABLET Take 1 tablet by mouth once d* CARBAMAZEPINE ER 200 MG TABLE* Take 1 tablet by mouth twice * TAMSULOSIN 0.4 MG CAPSULE Take 1 capsule by mouth once * WARFARIN 5 MG TABLET Take 1 tablet by mouth once d* ONDANSETRON 4 MG DISINTEGRATI* Take 1 tablet by mouth every * X IPRATROPIUM-ALBUTEROL 0.5 MG-* Inhale 3 mL as instructed dillon* COMPOUNDED PRESCRIPTION Hinged knee brace- right Re: * LORAZEPAM 0.5 MG TABLET Take by mouth twice daily as* FLUTICASONE 250 MCG-SALMETERO* Inhale 1 Puff as instructed t* LEG BRACE Please use the brace daily in* PREDNISONE 20 MG TABLET Take 20 mg by mouth once dominick* ASPIRIN 81 MG TABLET,DELAYED * Take 81 mg by mouth once dominick* WARFARIN 4 MG TABLET Take 4 mg by mouth daily as d* LIDOCAINE 5 % TOPICAL PATCH Apply 1 Patch as directed dillon* SENNOSIDES 8.6 MG TABLET Take 8.6 mg by mouth daily at* X HYDROCODONE 5 MG-ACETAMINOPHE* Take 1 tablet by mouth every * ACETAMINOPHEN 325 MG TABLET Take 2 tablets by mouth every* COMPOUNDED PRESCRIPTION 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 Hypertension [I10] Priority: D More... Hyperlipidemia [E78.5] INVALID FOR* Priority: E More... CAD (coronary artery disease) [I25.10] INVALID FOR* Priority: J More... COPD (chronic obstructive pulmonary disease) (H* Priority: C More... Tobacco use disorder [F17.200] More... Anxiety and depression [F41.8] Priority: E More... Blindness of right eye [H54.40] Bilateral shoulder pain [M25.511, M25.512] INVALID FOR* Neck pain [M54.2] INVALID FOR* Chronic low back pain [M54.5, G89.29] INVALID FOR* Vertebral compression fracture [M48.50XA] INVALID FOR* Lumbar spondylosis [M47.816] INVALID FOR* Lumbar radiculopathy [M54.16] INVALID FOR* Rectal bleeding [K62.5] 11/13/2013 Ischemia of extremity [I99.8] INVALID FOR*02/10/2014 Priority: B More... Urinary retention [R33.9] INVALID FOR* Priority: E More... DISPOSITION AND FOLLOW-UP [V999.01] INVALID FOR* Priority: M More... Erythema of groin [L53.9] INVALID FOR*02/10/2014 Priority: B More... SUMMARY [V999.95] INVALID FOR* Priority: Very Severe More... Pain, postoperative, acute [G89.18] INVALID FOR*02/10/2014 Priority: B More... Thrombosis [I82.90] INVALID FOR*02/10/2014 Priority: A More... Anticoagulation goal of INR 2 to 3 [Z51.81, Z79*INVALID FOR* Priority: B More... Melena [K92.1] INVALID FOR* Priority: A More... IBD (inflammatory bowel disease) [K52.9] INVALID FOR* Priority: K More... Abdominal pain, other specified site [R10.9] INVALID FOR* Priority: I More... Anxiety [F41.9] INVALID FOR* Priority: K More... Urinary retention with incomplete bladder empty*INVALID FOR* Priority: C More... Hyponatremia [E87.1] INVALID FOR* More... GI bleeding [D62] INVALID FOR* Priority: B More... Anemia due to acute blood loss [D62] INVALID FOR* More... s/p left femoral endarterectomy/aortoiliac sten*INVALID FOR* Priority: A More... PVD (peripheral vascular disease) ([facility]) [I73.9] INVALID FOR* More... Lupus anticoagulant disorder (HCC) [D68.62] INVALID FOR* More... Ulcerative colitis (HCC) [K51.90] INVALID FOR* Priority: G More... Smoker [F17.200] INVALID FOR* Priority: C More... Hematoma, postoperative [EAS0069] INVALID FOR*08/11/2014 Priority: C More... Lipoma of abdominal wall [D17.1] INVALID FOR* More... Ischaemic rest pain of lower extremity (HCC) [I*INVALID FOR* Illiterate [Z55.0] INVALID FOR* Pain in left shoulder [M25.512] INVALID FOR* More... Acute GI bleeding [K92.2] INVALID FOR* Priority: A More... Hypotension due to blood loss [I95.89] INVALID FOR* Priority: B More... Dysuria [R30.0] INVALID FOR* Priority: D More... Lipoma of back [D17.1] INVALID FOR* Encounter Status:Closed by ANJALI TELLO on 08/06/17 OBSOLETE Observed: 06/22/2017 Status: COMPLETED Source: [place] 12:00 AM [facility] REPOSITORY Refill (INTMWS) MILES SIERRA ([id number]) 1950 M Date Time Provider Department 06/22/17 CARLOS MORTON INTMWS During your visit today, we recorded the following information about you: Mayra Washington 06/22/2017 12:58 PM Signed Patient has been identified by name and date of : Yes Pending Prescriptions Disp Refills BUSPIRONE 5 MG TABLET 90 tablet 0 Sig: Take 1 tablet by mouth three times daily. NAVI: No RX INSTRUCTIONS: Patient aware RX will be sent to pharmacy. No need to notify patient. Mayra Vidales Psr Nani Grewal RN 06/22/2017 3:48 PM Signed Patient has been identified by name and date of : Yes Patient phones for refill(s): Pending Prescriptions Disp Refills BUSPIRONE 5 MG TABLET 90 tablet 5 Sig: Take 1 tablet by mouth three times daily. NAVI: No Date of last office visit in primary care: 05/31/17, future appt. 07/10/17 Last 2 Encounter Wt Readings: Date: Wt: 05/31/2017 72.1 kg (159 lb) 03/22/2017 76.2 kg (168 lb) Previous labs/tests for medication: Blood Pressure: BUN (mg/dL) Date Value 03/22/2017 10 Sodium (mmol/L) Date Value 03/22/2017 137 Last 1 Encounter BP Readings: Date: BP: 05/31/2017 110/70 Liver Function: ALT (U/L) Date Value 03/22/2017 19 AST (U/L) Date Value 03/22/2017 24 Please advise. Thank you. Nani Desai LPN 06/23/2017 1:23 PM Signed The following approved medication requests have been transmitted electronically. Signed Prescriptions Disp Refills busPIRone (BUSPAR) 5 mg tablet 90 tablet 5 Sig: Take 1 tablet by mouth three times daily. NAVI: No Authorizing Provider: CARLOS MORTON LPN Allergies As of Date: 06/22/2017 (No Known Allergies) Date Reviewed: 06/16/2017 Reviewed by: Irlanda Guadalupe RN - Fully Assessed Reason for Visit: Refill Request [94] Order(s):busPIRone (BUSPAR) 5 mg tabletTake 1 tablet by mouth three times daily.Disp: 90 tabletRfl: 5 Prescriptions as of 06/22/2017 Sig: BUSPIRONE 5 MG TABLET Take 1 tablet by mouth three * MIRTAZAPINE 7.5 MG TABLET Take 1 tablet by mouth daily * LORAZEPAM 0.5 MG TABLET Take 1 tablet by mouth twice * TRAZODONE 50 MG TABLET take 1 tablet by mouth at bed* GABAPENTIN 600 MG TABLET Take 1 tablet by mouth four t* PANTOPRAZOLE 40 MG TABLET,DEL* Take 1 tablet by mouth daily * METOPROLOL TARTRATE 50 MG TAB* Take 1 tablet by mouth twice * SERTRALINE 100 MG TABLET Take 1 tablet by mouth once d* FINASTERIDE 5 MG TABLET Take 1 tablet by mouth once d* ATORVASTATIN 40 MG TABLET Take 1 tablet by mouth once d* CARBAMAZEPINE ER 200 MG TABLE* Take 1 tablet by mouth twice * TAMSULOSIN 0.4 MG CAPSULE Take 1 capsule by mouth once * WARFARIN 5 MG TABLET Take 1 tablet by mouth once d* ONDANSETRON 4 MG DISINTEGRATI* Take 1 tablet by mouth every * IPRATROPIUM-ALBUTEROL 0.5 MG-* Inhale 3 mL as instructed dillon* COMPOUNDED PRESCRIPTION Hinged knee brace- right Re: * LORAZEPAM 0.5 MG TABLET Take by mouth twice daily as* FLUTICASONE 250 MCG-SALMETERO* Inhale 1 Puff as instructed t* LEG BRACE Please use the brace daily in* PREDNISONE 20 MG TABLET Take 20 mg by mouth once dominick* ASPIRIN 81 MG TABLET,DELAYED * Take 81 mg by mouth once dominick* WARFARIN 4 MG TABLET Take 4 mg by mouth daily as d* LIDOCAINE 5 % TOPICAL PATCH Apply 1 Patch as directed dillon* SENNOSIDES 8.6 MG TABLET Take 8.6 mg by mouth daily at* HYDROCODONE 5 MG-ACETAMINOPHE* Take 1 tablet by mouth every * ACETAMINOPHEN 325 MG TABLET Take 2 tablets by mouth every* COMPOUNDED PRESCRIPTION 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 Hypertension [I10] Priority: D More... Hyperlipidemia [E78.5] INVALID FOR* Priority: E More... CAD (coronary artery disease) [I25.10] INVALID FOR* Priority: J More... COPD (chronic obstructive pulmonary disease) (H* Priority: C More... Tobacco use disorder [F17.200] More... Anxiety and depression [F41.8] Priority: E More... Blindness of right eye [H54.40] Bilateral shoulder pain [M25.511, M25.512] INVALID FOR* Neck pain [M54.2] INVALID FOR* Chronic low back pain [M54.5, G89.29] INVALID FOR* Vertebral compression fracture [M48.50XA] INVALID FOR* Lumbar spondylosis [M47.816] INVALID FOR* Lumbar radiculopathy [M54.16] INVALID FOR* Rectal bleeding [K62.5] 11/13/2013 Ischemia of extremity [I99.8] INVALID FOR*02/10/2014 Priority: B More... Urinary retention [R33.9] INVALID FOR* Priority: E More... DISPOSITION AND FOLLOW-UP [V999.01] INVALID FOR* Priority: M More... Erythema of groin [L53.9] INVALID FOR*02/10/2014 Priority: B More... SUMMARY [V999.95] INVALID FOR* Priority: Very Severe More... Pain, postoperative, acute [G89.18] INVALID FOR*02/10/2014 Priority: B More... Thrombosis [I82.90] INVALID FOR*02/10/2014 Priority: A More... Anticoagulation goal of INR 2 to 3 [Z51.81, Z79*INVALID FOR* Priority: B More... Melena [K92.1] INVALID FOR* Priority: A More... IBD (inflammatory bowel disease) [K52.9] INVALID FOR* Priority: K More... Abdominal pain, other specified site [R10.9] INVALID FOR* Priority: I More... Anxiety [F41.9] INVALID FOR* Priority: K More... Urinary retention with incomplete bladder empty*INVALID FOR* Priority: C More... Hyponatremia [E87.1] INVALID FOR* More... GI bleeding [D62] INVALID FOR* Priority: B More... Anemia due to acute blood loss [D62] INVALID FOR* More... s/p left femoral endarterectomy/aortoiliac sten*INVALID FOR* Priority: A More... PVD (peripheral vascular disease) (HCC) [I73.9] INVALID FOR* More... Lupus anticoagulant disorder (HCC) [D68.62] INVALID FOR* More... Ulcerative colitis (HCC) [K51.90] INVALID FOR* Priority: G More... Smoker [F17.200] INVALID FOR* Priority: C More... Hematoma, postoperative [MJL0888] INVALID FOR*08/11/2014 Priority: C More... Lipoma of abdominal wall [D17.1] INVALID FOR* More... Ischaemic rest pain of lower extremity (HCC) [I*INVALID FOR* Illiterate [Z55.0] INVALID FOR* Pain in left shoulder [M25.512] INVALID FOR* More... Acute GI bleeding [K92.2] INVALID FOR* Priority: A More... Hypotension due to blood loss [I95.89] INVALID FOR* Priority: B More... Dysuria [R30.0] INVALID FOR* Priority: D More... Lipoma of back [D17.1] INVALID FOR* Prescriptions ordered this encounter Disp Refills Start End BUSPIRONE 5 MG TABLET 90 t* 5 06/23/2017 Route: ORAL Sig: Take 1 tablet by mouth three times daily. Medications Discontinued During This Encounter busPIRone (BUSPAR) 5 mg tablet 90 t* 0 04/21/2017 06/23/2017 Route: ORAL Sig: Take 1 tablet by mouth three times daily. Disc: Reason for discontinue is not on file. Encounter Status:Closed by DEMIAN DESAI LPN on 06/23/17 PROGRESS Observed: 06/16/2017 Status: COMPLETED Source: [place] 4:30 PM [facility] REPOSITORY HNO ID: [id number] Author: Irlanda Guadalupe RN Service: (none) Author Type: (none) Type: Progress Notes Filed: 06/16/2017 4:30 PM Note Text: per written order by dr montenegro she agrees with information below, encounter is being closed PROGRESS Observed: 06/16/2017 Status: COMPLETED Source: [place] 2:14 PM [facility] REPOSITORY HNO ID: [id number] Author: Irlanda Guadalupe RN Service: (none) Author Type: (none) Type: Progress Notes Filed: 06/16/2017 2:15 PM Note Text: patient had inr completed at [facility] patients inr is 1.9 (patients inr range is 2.0-3.0) patient is currently taking 5mg daily patients last dose change was on 06/09/17 due to a low level of 1.3 (dose at that time was 5mg Mon,Wed, and 2.5mg all other days) patient has had no changes in medication except for coumadin and no change in diet Advised patient to continue on the same dose(s) and that they would only be contacted regarding dosage and follow up instructions after review with provider, if a change is needed. Written instructions given and patient verbalized understanding. Presently scheduled in 2 weeks (06/30/17) for follow up INR. HOSP Observed: 06/16/2017 Status: COMPLETED Source: [place] 1:15 PM [facility]POS[facility] Anticoagulation Visit (COUMWS) MILES SIERRA ([id number]) 1950 M Date Time Provider Department 06/16/17 1:15 PM [facility] COU[facility] During your visit today, we recorded the following information about you: Irlanda Guadalupe RN 06/16/2017 2:15 PM Signed patient had inr completed at [facility] patients inr is 1.9 (patients inr range is 2.0-3.0) patient is currently taking 5mg daily patients last dose change was on 06/09/17 due to a low level of 1.3 (dose at that time was 5mg Mon,Wed, and 2.5mg all other days) patient has had no changes in medication except for coumadin and no change in diet Advised patient to continue on the same dose(s) and that they would only be contacted regarding dosage and follow up instructions after review with provider, if a change is needed. Written instructions given and patient verbalized understanding. Presently scheduled in 2 weeks (06/30/17) for follow up INR. Irlanda Guadalupe RN 06/16/2017 4:30 PM Signed per written order by dr montenegro she agrees with information below, encounter is being closed Referring Provider: CARLOS MORTON [[id number]] Allergies As of Date: 06/16/2017 (No Known Allergies) Date Reviewed: 06/16/2017 Reviewed by: Irlanda Guadalupe RN - Fully Assessed Reason for Visit: Anticoagulation [8] Visit Diagnoses:Coronary artery disease with angina pectoris, unspecified vessel or lesion type, unspecified whether [place] or transplanted heart (HCC) [I25.119] PVD (peripheral vascular disease) ([facility]) [I73.9] Order(s):INR (POC) [8576263] Order #: [id number]. #:[id number] Prescriptions as of 06/16/2017 Sig: MIRTAZAPINE 7.5 MG TABLET Take 1 tablet by mouth daily * LORAZEPAM 0.5 MG TABLET Take 1 tablet by mouth twice * TRAZODONE 50 MG TABLET take 1 tablet by mouth at bed* BUSPIRONE 5 MG TABLET Take 1 tablet by mouth three * GABAPENTIN 600 MG TABLET Take 1 tablet by mouth four t* PANTOPRAZOLE 40 MG TABLET,DEL* Take 1 tablet by mouth daily * METOPROLOL TARTRATE 50 MG TAB* Take 1 tablet by mouth twice * SERTRALINE 100 MG TABLET Take 1 tablet by mouth once d* FINASTERIDE 5 MG TABLET Take 1 tablet by mouth once d* ATORVASTATIN 40 MG TABLET Take 1 tablet by mouth once d* CARBAMAZEPINE ER 200 MG TABLE* Take 1 tablet by mouth twice * TAMSULOSIN 0.4 MG CAPSULE Take 1 capsule by mouth once * WARFARIN 5 MG TABLET Take 1 tablet by mouth once d* ONDANSETRON 4 MG DISINTEGRATI* Take 1 tablet by mouth every * IPRATROPIUM-ALBUTEROL 0.5 MG-* Inhale 3 mL as instructed dillon* COMPOUNDED PRESCRIPTION Hinged knee brace- right Re: * LORAZEPAM 0.5 MG TABLET Take by mouth twice daily as* FLUTICASONE 250 MCG-SALMETERO* Inhale 1 Puff as instructed t* LEG BRACE Please use the brace daily in* PREDNISONE 20 MG TABLET Take 20 mg by mouth once dominick* ASPIRIN 81 MG TABLET,DELAYED * Take 81 mg by mouth once dominick* WARFARIN 4 MG TABLET Take 4 mg by mouth daily as d* LIDOCAINE 5 % TOPICAL PATCH Apply 1 Patch as directed dillon* SENNOSIDES 8.6 MG TABLET Take 8.6 mg by mouth daily at* HYDROCODONE 5 MG-ACETAMINOPHE* Take 1 tablet by mouth every * ACETAMINOPHEN 325 MG TABLET Take 2 tablets by mouth every* COMPOUNDED PRESCRIPTION 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 Hypertension [I10] Priority: D More... Hyperlipidemia [E78.5] INVALID FOR* Priority: E More... CAD (coronary artery disease) [I25.10] INVALID FOR* Priority: J More... COPD (chronic obstructive pulmonary disease) (H* Priority: C More... Tobacco use disorder [F17.200] More... Anxiety and depression [F41.8] Priority: E More... Blindness of right eye [H54.40] Bilateral shoulder pain [M25.511, M25.512] INVALID FOR* Neck pain [M54.2] INVALID FOR* Chronic low back pain [M54.5, G89.29] INVALID FOR* Vertebral compression fracture [M48.50XA] INVALID FOR* Lumbar spondylosis [M47.816] INVALID FOR* Lumbar radiculopathy [M54.16] INVALID FOR* Rectal bleeding [K62.5] 11/13/2013 Ischemia of extremity [I99.8] INVALID FOR*02/10/2014 Priority: B More... Urinary retention [R33.9] INVALID FOR* Priority: E More... DISPOSITION AND FOLLOW-UP [V999.01] INVALID FOR* Priority: M More... Erythema of groin [L53.9] INVALID FOR*02/10/2014 Priority: B More... SUMMARY [V999.95] INVALID FOR* Priority: Very Severe More... Pain, postoperative, acute [G89.18] INVALID FOR*02/10/2014 Priority: B More... Thrombosis [I82.90] INVALID FOR*02/10/2014 Priority: A More... Anticoagulation goal of INR 2 to 3 [Z51.81, Z79*INVALID FOR* Priority: B More... Melena [K92.1] INVALID FOR* Priority: A More... IBD (inflammatory bowel disease) [K52.9] INVALID FOR* Priority: K More... Abdominal pain, other specified site [R10.9] INVALID FOR* Priority: I More... Anxiety [F41.9] INVALID FOR* Priority: K More... Urinary retention with incomplete bladder empty*INVALID FOR* Priority: C More... Hyponatremia [E87.1] INVALID FOR* More... GI bleeding [D62] INVALID FOR* Priority: B More... Anemia due to acute blood loss [D62] INVALID FOR* More... s/p left femoral endarterectomy/aortoiliac sten*INVALID FOR* Priority: A More... PVD (peripheral vascular disease) (HCC) [I73.9] INVALID FOR* More... Lupus anticoagulant disorder (HCC) [D68.62] INVALID FOR* More... Ulcerative colitis (HCC) [K51.90] INVALID FOR* Priority: G More... Smoker [F17.200] INVALID FOR* Priority: C More... Hematoma, postoperative [XLU3077] INVALID FOR*08/11/2014 Priority: C More... Lipoma of abdominal wall [D17.1] INVALID FOR* More... Ischaemic rest pain of lower extremity (HCC) [I*INVALID FOR* Illiterate [Z55.0] INVALID FOR* Pain in left shoulder [M25.512] INVALID FOR* More... Acute GI bleeding [K92.2] INVALID FOR* Priority: A More... Hypotension due to blood loss [I95.89] INVALID FOR* Priority: B More... Dysuria [R30.0] INVALID FOR* Priority: D More... Lipoma of back [D17.1] INVALID FOR* Follow-up and Disposition History Recorded Encounter Status:Closed by IRLANDA GUADALUPE RN on 06/16/17 PROGRESS Observed: 06/09/2017 Status: COMPLETED Source: [place] 1:33 PM [facility] REPOS[facility] HNO ID: [id number] Author: Irlanda Guadalupe RN Service: (none) Author Type: (none) Type: Progress Notes Filed: 06/09/2017 1:34 PM Note Text: per written order by dr montenegro patient is to take 5mg daily and recheck and scheduled patient has been notified PROGRESS Observed: 06/09/2017 Status: COMPLETED Source: [place] 11:56 AM [facility] REPOS[facility] HNO ID: [id number] Author: Irlanda Guadalupe RN Service: (none) Author Type: (none) Type: Progress Notes Filed: 06/09/2017 11:58 AM Note Text: patient had inr completed at [facility] patients inr is 1.3 (patients inr range is 2.0-3.0) patient is currently taking 5mg Mon,Mon and 2.5mg all other days patients last dose change was on 06/02/17 due to a low level of 1.3 (dose at that time was 2.5mg daily) patient has had no changes in medication except for coumadin and no change in diet Advised patient that they would be contacted regarding medication dose and when to follow up after information is reviewed by provider. After provider review please contact the patient with information and schedule follow up appointment with coumadin clinic. FYI- patient has been scheduled for a 1 week follow up inr on 06/16/17 HOSP Observed: 06/09/2017 Status: COMPLETED Source: [place] 11:30 AM [facility]POS[facility] Anticoagulation Visit (COUMWS) MILES SIERRA ([id number]) 1950 M Date Time Provider Department 06/09/17 11:30 AM [facility] During your visit today, we recorded the following information about you: Irlanda Guadalupe RN 06/09/2017 11:58 AM Signed patient had inr completed at [facility] patients inr is 1.3 (patients inr range is 2.0-3.0) patient is currently taking 5mg Mon,Mon and 2.5mg all other days patients last dose change was on 06/02/17 due to a low level of 1.3 (dose at that time was 2.5mg daily) patient has had no changes in medication except for coumadin and no change in diet Advised patient that they would be contacted regarding medication dose and when to follow up after information is reviewed by provider. After provider review please contact the patient with information and schedule follow up appointment with coumadin clinic. FYI- patient has been scheduled for a 1 week follow up inr on 06/16/17 Irlanda Guadalupe RN 06/09/2017 1:34 PM Signed per written order by dr montenegro patient is to take 5mg daily and recheck and scheduled patient has been notified Referring Provider: CARLOS MORTON [[id number]] Allergies As of Date: 06/09/2017 (No Known Allergies) Date Reviewed: 06/09/2017 Reviewed by: Irlanda Guadalupe RN - Fully Assessed Reason for Visit: Anticoagulation [8] Visit Diagnoses:Coronary artery disease with angina pectoris, unspecified vessel or lesion type, unspecified whether [place] or transplanted heart (HCC) [I25.119] PVD (peripheral vascular disease) ([facility]) [I73.9] Order(s):INR (POC) [0680675] Order #: [id number]. #:[id number] Prescriptions as of 06/09/2017 Sig: MIRTAZAPINE 7.5 MG TABLET Take 1 tablet by mouth daily * LORAZEPAM 0.5 MG TABLET Take 1 tablet by mouth twice * TRAZODONE 50 MG TABLET take 1 tablet by mouth at bed* BUSPIRONE 5 MG TABLET Take 1 tablet by mouth three * GABAPENTIN 600 MG TABLET Take 1 tablet by mouth four t* PANTOPRAZOLE 40 MG TABLET,DEL* Take 1 tablet by mouth daily * METOPROLOL TARTRATE 50 MG TAB* Take 1 tablet by mouth twice * SERTRALINE 100 MG TABLET Take 1 tablet by mouth once d* FINASTERIDE 5 MG TABLET Take 1 tablet by mouth once d* ATORVASTATIN 40 MG TABLET Take 1 tablet by mouth once d* CARBAMAZEPINE ER 200 MG TABLE* Take 1 tablet by mouth twice * TAMSULOSIN 0.4 MG CAPSULE Take 1 capsule by mouth once * WARFARIN 5 MG TABLET Take 1 tablet by mouth once d* ONDANSETRON 4 MG DISINTEGRATI* Take 1 tablet by mouth every * IPRATROPIUM-ALBUTEROL 0.5 MG-* Inhale 3 mL as instructed dillon* COMPOUNDED PRESCRIPTION Hinged knee brace- right Re: * LORAZEPAM 0.5 MG TABLET Take by mouth twice daily as* FLUTICASONE 250 MCG-SALMETERO* Inhale 1 Puff as instructed t* LEG BRACE Please use the brace daily in* PREDNISONE 20 MG TABLET Take 20 mg by mouth once dominick* ASPIRIN 81 MG TABLET,DELAYED * Take 81 mg by mouth once dominick* WARFARIN 4 MG TABLET Take 4 mg by mouth daily as d* LIDOCAINE 5 % TOPICAL PATCH Apply 1 Patch as directed dillon* SENNOSIDES 8.6 MG TABLET Take 8.6 mg by mouth daily at* HYDROCODONE 5 MG-ACETAMINOPHE* Take 1 tablet by mouth every * ACETAMINOPHEN 325 MG TABLET Take 2 tablets by mouth every* COMPOUNDED PRESCRIPTION 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 Hypertension [I10] Priority: D More... Hyperlipidemia [E78.5] INVALID FOR* Priority: E More... CAD (coronary artery disease) [I25.10] INVALID FOR* Priority: J More... COPD (chronic obstructive pulmonary disease) (H* Priority: C More... Tobacco use disorder [F17.200] More... Anxiety and depression [F41.8] Priority: E More... Blindness of right eye [H54.40] Bilateral shoulder pain [M25.511, M25.512] INVALID FOR* Neck pain [M54.2] INVALID FOR* Chronic low back pain [M54.5, G89.29] INVALID FOR* Vertebral compression fracture [M48.50XA] INVALID FOR* Lumbar spondylosis [M47.816] INVALID FOR* Lumbar radiculopathy [M54.16] INVALID FOR* Rectal bleeding [K62.5] 11/13/2013 Ischemia of extremity [I99.8] INVALID FOR*02/10/2014 Priority: B More... Urinary retention [R33.9] INVALID FOR* Priority: E More... DISPOSITION AND FOLLOW-UP [V999.01] INVALID FOR* Priority: M More... Erythema of groin [L53.9] INVALID FOR*02/10/2014 Priority: B More... SUMMARY [V999.95] INVALID FOR* Priority: Very Severe More... Pain, postoperative, acute [G89.18] INVALID FOR*02/10/2014 Priority: B More... Thrombosis [I82.90] INVALID FOR*02/10/2014 Priority: A More... Anticoagulation goal of INR 2 to 3 [Z51.81, Z79*INVALID FOR* Priority: B More... Melena [K92.1] INVALID FOR* Priority: A More... IBD (inflammatory bowel disease) [K52.9] INVALID FOR* Priority: K More... Abdominal pain, other specified site [R10.9] INVALID FOR* Priority: I More... Anxiety [F41.9] INVALID FOR* Priority: K More... Urinary retention with incomplete bladder empty*INVALID FOR* Priority: C More... Hyponatremia [E87.1] INVALID FOR* More... GI bleeding [D62] INVALID FOR* Priority: B More... Anemia due to acute blood loss [D62] INVALID FOR* More... s/p left femoral endarterectomy/aortoiliac sten*INVALID FOR* Priority: A More... PVD (peripheral vascular disease) (HCC) [I73.9] INVALID FOR* More... Lupus anticoagulant disorder (HCC) [D68.62] INVALID FOR* More... Ulcerative colitis (HCC) [K51.90] INVALID FOR* Priority: G More... Smoker [F17.200] INVALID FOR* Priority: C More... Hematoma, postoperative [SEP4677] INVALID FOR*08/11/2014 Priority: C More... Lipoma of abdominal wall [D17.1] INVALID FOR* More... Ischaemic rest pain of lower extremity (HCC) [I*INVALID FOR* Illiterate [Z55.0] INVALID FOR* Pain in left shoulder [M25.512] INVALID FOR* More... Acute GI bleeding [K92.2] INVALID FOR* Priority: A More... Hypotension due to blood loss [I95.89] INVALID FOR* Priority: B More... Dysuria [R30.0] INVALID FOR* Priority: D More... Lipoma of back [D17.1] INVALID FOR* Medications Discontinued During This Encounter warfarin (COUMADIN) 2 mg tablet 30 t* 11 04/07/2017 06/09/2017 Route: ORAL Sig: Take 1 tablet by mouth once daily. Disc: Changing Therapy/Dosage Form Follow-up and Disposition History Recorded Encounter Status:Closed by IRLANDA GUADALUPE RN on 06/09/17 OBSOLETE Observed: 06/07/2017 Status: COMPLETED Source: [place] 12:00 AM [facility] REPOS[facility] Refill (INTMWS) MILES SIERRA ([id number]) 1950 M Date Time Provider Department 06/07/17 CARLOS MORTON INTBingWS During your visit today, we recorded the following information about you: Nani Grewal RN 06/08/2017 1:11 PM Signed Patient has been identified by name and date of : Yes Patient phones for refill(s): Pending Prescriptions Disp Refills MIRTAZAPINE 7.5 MG TABLET 30 tablet 5 Sig: Take 1 tablet by mouth daily at bedtime. NAVI: No Date of last office visit in primary care: 05/31/17, future appt. 07/10/17 Last 2 Encounter Wt Readings: Date: Wt: 05/31/2017 72.1 kg (159 lb) 03/22/2017 76.2 kg (168 lb) Previous labs/tests for medication: Blood Pressure: BUN (mg/dL) Date Value 03/22/2017 10 Sodium (mmol/L) Date Value 03/22/2017 137 Last 1 Encounter BP Readings: Date: BP: 05/31/2017 110/70 Liver Function: ALT (U/L) Date Value 03/22/2017 19 AST (U/L) Date Value 03/22/2017 24 Please advise. Thank you. Nani Braga CNP 06/08/2017 1:52 PM Signed The following approved medication requests have been transmitted electronically. Signed Prescriptions Disp Refills Mirtazapine (REMERON) 7.5 mg tablet 30 tablet 5 Sig: Take 1 tablet by mouth daily at bedtime. NAVI: No Authorizing Provider: MARQUITA BRAGA (ACE) Marquita Braga CNP Allergies As of Date: 06/07/2017 (No Known Allergies) Date Reviewed: 05/31/2017 Reviewed by: Devante Clarke Casino [employer]er - Fully Assessed Reason for Visit: Refill Request [94] Order(s):Mirtazapine (REMERON) 7.5 mg tabletTake 1 tablet by mouth daily at bedtime.Disp: 30 tabletRfl: 5 Prescriptions as of 06/07/2017 Sig: MIRTAZAPINE 7.5 MG TABLET Take 1 tablet by mouth daily * LORAZEPAM 0.5 MG TABLET Take 1 tablet by mouth twice * TRAZODONE 50 MG TABLET take 1 tablet by mouth at bed* BUSPIRONE 5 MG TABLET Take 1 tablet by mouth three * GABAPENTIN 600 MG TABLET Take 1 tablet by mouth four t* PANTOPRAZOLE 40 MG TABLET,DEL* Take 1 tablet by mouth daily * METOPROLOL TARTRATE 50 MG TAB* Take 1 tablet by mouth twice * SERTRALINE 100 MG TABLET Take 1 tablet by mouth once d* FINASTERIDE 5 MG TABLET Take 1 tablet by mouth once d* ATORVASTATIN 40 MG TABLET Take 1 tablet by mouth once d* CARBAMAZEPINE ER 200 MG TABLE* Take 1 tablet by mouth twice * TAMSULOSIN 0.4 MG CAPSULE Take 1 capsule by mouth once * WARFARIN 5 MG TABLET Take 1 tablet by mouth once d* WARFARIN 2 MG TABLET Take 1 tablet by mouth once d* ONDANSETRON 4 MG DISINTEGRATI* Take 1 tablet by mouth every * IPRATROPIUM-ALBUTEROL 0.5 MG-* Inhale 3 mL as instructed dillon* COMPOUNDED PRESCRIPTION Hinged knee brace- right Re: * LORAZEPAM 0.5 MG TABLET Take by mouth twice daily as* FLUTICASONE 250 MCG-SALMETERO* Inhale 1 Puff as instructed t* LEG BRACE Please use the brace daily in* PREDNISONE 20 MG TABLET Take 20 mg by mouth once dominick* ASPIRIN 81 MG TABLET,DELAYED * Take 81 mg by mouth once dominick* WARFARIN 4 MG TABLET Take 4 mg by mouth daily as d* LIDOCAINE 5 % TOPICAL PATCH Apply 1 Patch as directed dillon* SENNOSIDES 8.6 MG TABLET Take 8.6 mg by mouth daily at* HYDROCODONE 5 MG-ACETAMINOPHE* Take 1 tablet by mouth every * ACETAMINOPHEN 325 MG TABLET Take 2 tablets by mouth every* COMPOUNDED PRESCRIPTION 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 Hypertension [I10] Priority: D More... Hyperlipidemia [E78.5] INVALID FOR* Priority: E More... CAD (coronary artery disease) [I25.10] INVALID FOR* Priority: J More... COPD (chronic obstructive pulmonary disease) (H* Priority: C More... Tobacco use disorder [F17.200] More... Anxiety and depression [F41.8] Priority: E More... Blindness of right eye [H54.40] Bilateral shoulder pain [M25.511, M25.512] INVALID FOR* Neck pain [M54.2] INVALID FOR* Chronic low back pain [M54.5, G89.29] INVALID FOR* Vertebral compression fracture [M48.50XA] INVALID FOR* Lumbar spondylosis [M47.816] INVALID FOR* Lumbar radiculopathy [M54.16] INVALID FOR* Rectal bleeding [K62.5] 11/13/2013 Ischemia of extremity [I99.8] INVALID FOR*02/10/2014 Priority: B More... Urinary retention [R33.9] INVALID FOR* Priority: E More... DISPOSITION AND FOLLOW-UP [V999.01] INVALID FOR* Priority: M More... Erythema of groin [L53.9] INVALID FOR*02/10/2014 Priority: B More... SUMMARY [V999.95] INVALID FOR* Priority: Very Severe More... Pain, postoperative, acute [G89.18] INVALID FOR*02/10/2014 Priority: B More... Thrombosis [I82.90] INVALID FOR*02/10/2014 Priority: A More... Anticoagulation goal of INR 2 to 3 [Z51.81, Z79*INVALID FOR* Priority: B More... Melena [K92.1] INVALID FOR* Priority: A More... IBD (inflammatory bowel disease) [K52.9] INVALID FOR* Priority: K More... Abdominal pain, other specified site [R10.9] INVALID FOR* Priority: I More... Anxiety [F41.9] INVALID FOR* Priority: K More... Urinary retention with incomplete bladder empty*INVALID FOR* Priority: C More... Hyponatremia [E87.1] INVALID FOR* More... GI bleeding [D62] INVALID FOR* Priority: B More... Anemia due to acute blood loss [D62] INVALID FOR* More... s/p left femoral endarterectomy/aortoiliac sten*INVALID FOR* Priority: A More... PVD (peripheral vascular disease) (HCC) [I73.9] INVALID FOR* More... Lupus anticoagulant disorder (HCC) [D68.62] INVALID FOR* More... Ulcerative colitis (HCC) [K51.90] INVALID FOR* Priority: G More... Smoker [F17.200] INVALID FOR* Priority: C More... Hematoma, postoperative [RAR0471] INVALID FOR*08/11/2014 Priority: C More... Lipoma of abdominal wall [D17.1] INVALID FOR* More... Ischaemic rest pain of lower extremity (HCC) [I*INVALID FOR* Illiterate [Z55.0] INVALID FOR* Pain in left shoulder [M25.512] INVALID FOR* More... Acute GI bleeding [K92.2] INVALID FOR* Priority: A More... Hypotension due to blood loss [I95.89] INVALID FOR* Priority: B More... Dysuria [R30.0] INVALID FOR* Priority: D More... Lipoma of back [D17.1] INVALID FOR* Prescriptions ordered this encounter Disp Refills Start End MIRTAZAPINE 7.5 MG TABLET 30 t* 5 06/08/2017 Route: ORAL Sig: Take 1 tablet by mouth daily at bedtime. Medications Discontinued During This Encounter Mirtazapine (REMERON) 7.5 mg tablet 30 t* 0 06/07/2017 06/08/2017 Sig: TAKE ONE TABLET BY MOUTH DAILY AT BEDTIME Disc: Reason for discontinue is not on file. Encounter Status:Closed by MARQUITA BRAGA CNP on 06/08/17 ALLERGIES ALLERGIES DATE TYPE / CODE NAME / CODE REACTION SEVERITY SOURCE 05/19/2018 [address] No [address] [facility] Allergy/416 Allergies/W31822 [facility] 743475(SNOM 0388(RXNORM) Repository ED CT) Drug NO KNOWN [facility] Class/57975 ALLERGIES [place] 1003(SNOMED Repository CT) ENCOUNTERS ENCOUNTERS ADMIT/DISCHARGE ACCOUNT NUMBER ADMITTING ENCOUNTER LOCATION SOURCE CLASS 06/04/2018/06/05/20 [id number] Ambulatory [address] [place] Repository 05/23/2018/05/23/20 [id number] Ambulatory [address] Repository 05/23/2018 [id number] Ambulatory [facility] ding:MRI Repository 05/21/2018/05/23/20 [id number] Ambulatory [address] Repository 05/19/2018/12/01 [id number] [place] [facility] ding:ED Repository 05/18/2018/05/18/20 [id number] Ambulatory [place] [facility] [place] Repository 05/18/2018/05/21/20 [id number] Ambulatory [address] [place] Repository 05/18/2018/05/21/20 [id number] Ambulatory [address] [place] Repository 05/14/2018/05/15/20 [id number] RENATE RANDALL., Ambulatory BBuilding:MS Cecilia Shabazz MD. [facility] URRoom: [facility] 0232Bed: A [facility] Repository 05/11/2018/05/14/20 [id number] Ambulatory [address] [place] Repository 04/27/2018/04/30/20 [id number] Ambulatory [address] [place] Repository 04/13/2018/04/16/20 [id number] Ambulatory [address] [place] Repository 04/11/2018/04/12/20 [id number] Ambulatory [address] [place] Repository 03/30/2018/04/02/20 [id number] Ambulatory [address] [place] Repository 03/16/2018/03/19/20 [id number] Ambulatory [address] [place] Repository 03/14/2018/03/15/20 [id number] Ambulatory [address] [place] Repository 03/09/2018/03/12/20 [id number] Ambulatory [address] [place] Repository 03/07/2018/03/07/20 [id number] Emergency [place] [facility] ding:ED Repository 03/07/2018/03/08/20 [id number] Ambulatory [address] [place] Repository 02/28/2018/02/29/20 [id number] Ambulatory Dion Dion [facility] ding:PT Repository 02/21/2018/02/22/20 [id number] Ambulatory [address] [place] Repository 02/21/2018/02/23/20 [id number] Ambulatory [address] [place] Repository 02/13/2018/02/15/20 [id number] Ambulatory [address] [place] Repository 02/13/2018/02/15/20 [id number] Ambulatory [address] [place] Repository 02/06/2018/02/08/20 [id number] Ambulatory [address] [place] Repository 01/24/2018/01/29/20 [id number] Ambulatory [address] [place] Repository 01/24/2018/01/25/20 [id number] Ambulatory [address] [place] Repository 01/23/2018/01/25/20 [id number] Ambulatory [address] [place] Repository 01/11/2018/01/13/20 [id number] Ambulatory [address] [place] Repository 01/10/2018 [id number] Ambulatory [facility] ding:LAB Repository 12/28/2017/12/30/19 [id number] Ambulatory [address] Repository 12/21/2017 [id number] Ambulatory [facility] ding:SL Repository 12/14/2017/12/15/19 [id number] Emergency [address] ding:ED Repository 12/14/2017/12/16/19 [id number] Ambulatory [address] [place] Repository 12/12/2017/12/14/19 [id number] Ambulatory [address] [place] Repository 12/11/2017 [id number] Ambulatory [facility] ding:CVS Repository 12/10/2017/12/11/19 [id number] Emergency [address] ding:ED Repository 12/07/2017/12/09/19 [id number] Ambulatory [address] [place] Repository 12/04/2017/02/10/20 [id number] Ambulatory [address] [place] Repository 11/30/2017/12/02/19 [id number] Ambulatory [address] [place] Repository 11/27/2017/11/29/19 [id number] Ambulatory [address] [place] Repository 11/17/2017 [id number] Ambulatory [facility] [place] Repository 11/17/2017 [id number] Ambulatory [facility] [place] Repository 11/16/2017/11/18/19 [id number] Ambulatory [address] [place] Repository 11/16/2017/11/17/19 [id number] Ambulatory [address] [place] Repository 11/13/2017/11/14/19 [id number] Emergency Dion Dion [facility] ding:ED Repository 11/09/2017/11/11/19 [id number] Ambulatory [address] [place] Repository 11/08/2017/11/10/19 [id number] Ambulatory [address] [place] Repository 11/02/2017/11/04/19 [id number] Ambulatory [address] [place] Repository 10/27/2017/10/28/19 [id number] Emergency Dion Dion [facility] ding:ED Repository 10/26/2017/10/27/19 [id number] Emergency Dion Dion [facility] ding:ED Repository 10/26/2017/10/28/19 [id number] Ambulatory [address] [place] Repository 10/19/2017/10/21/19 [id number] Ambulatory [address] [place] Repository 10/13/2017/10/18/19 [id number] Ambulatory [address] [place] Repository 10/13/2017 [id number] Ambulatory [facility] [place] Repository 10/13/2017/10/17/19 [id number] Ambulatory [address] [place] Repository 10/09/2017/10/11/19 [id number] Ambulatory [address] [place] Repository 10/05/2017/10/10/19 [id number] Ambulatory [address] [place] Repository 10/03/2017/10/07/19 [id number] Ambulatory Zam[facility] [place] Repository 09/29/2017/09/30/19 [id number] Emergency [place] [facility] ding:ED Repository 09/28/2017/10/03/19 [id number] Ambulatory Zamora [facility] [place] Repository 09/27/2017/09/28/19 [id number] Ambulatory [address] [place] Repository 09/27/2017/09/29/19 [id number] Ambulatory [address] [place] Repository 09/26/2017/09/28/19 [id number] Ambulatory [address] [place] Repository 09/24/2017/09/25/19 [id number] Emergency BBuilding:BUCK Brooks [address] [place] [address] Repository 09/21/2017/10/03/19 [id number] Ambulatory [place] [facility] [place] Repository 09/19/2017/09/21/19 [id number] Ambulatory [address] [place] Repository 09/14/2017/09/16/19 [id number] Ambulatory [address] [place] Repository 09/12/2017 [id number] [facility] [place] Repository 09/07/2017/09/08/19 [id number] Ambulatory [address] [place] Repository 09/07/2017/09/09/19 [id number] Ambulatory [address] [place] Repository 08/31/2017/09/01/19 [id number] Ambulatory [address] [place] Repository 08/31/2017/09/02/19 [id number] Ambulatory [address] [place] Repository 08/24/2017/08/26/19 [id number] Ambulatory [address] [place] Repository 08/23/2017 [id number] Ambulatory [facility] ding:LAB Repository 08/17/2017/08/19/19 [id number] Ambulatory [address] [place] Repository 08/16/2017/08/16/19 [id number] Ambulatory [address] [place] Repository 08/16/2017/08/18/19 [id number] Ambulatory [address] [place] Repository 08/03/2017/08/04/19 [id number] Ambulatory [address] [place] Repository 07/27/2017/07/28/19 [id number] Ambulatory [address] [place] Repository 07/27/2017/07/28/19 [id number] Ambulatory [address] [place] Repository 07/26/2017/07/26/19 [id number] Ambulatory [address] [place] Repository 07/24/2017/07/24/19 [id number] Emergency [address] ding:ED Repository 07/24/2017/07/25/19 [id number] Ambulatory [address] [place] Repository 07/21/2017/07/21/19 [id number] Ambulatory [address] [place] Repository 07/10/2017/07/10/19 [id number] Ambulatory [address] [place] Repository 07/10/2017/07/11/19 [id number] Ambulatory [address] Repository 07/07/2017/07/10/19 [id number] Ambulatory [address] Repository 07/04/2017 [id number] Ambulatory [facility] ding:RAD Repository 06/16/2017/06/20/19 [id number] Ambulatory [address] Repository 06/09/2017/06/13/20 [id number] Ambulatory [address] Repository PAYERS PAYERS ENCOUNTER GUARANTOR PAYER SUBSCRIBER SOURCE 05/23/2018 MILES R Primary MILES R Dion [id number] Insurance:[facility] HENSELDOB: Community ALICIA LEACH *IN [facility] [id number] Number: Repository [id number]: 330 [id number] [phone] () Date:[id number] [address]BP: 05/23/2018 Secondary NOT GIVENUNK [place] Insurance:SELF PAY [facility] Number: Effective Repository Date:2018-05-17 05/19/2018 MILES R Primary MILES R Dion [id number] [facility] ALICIA LEACH *IN [facility] [id number] Number: Repository [id number]: 330 [id number] [phone] () Date:1360-65-01CM[address] [address]DO: 05/19/2018 Secondary NOT GIVENUNK Dion Insurance:SELF PAY [facility] Number: Effective Repository Date:2018-05-19 05/14/2018 MILES R Primary MILES R [facility] HENSELDOB: Insurance:[place] HENSELDOB: [facility] [id number] Repository [facility]IA TAV[facility] Number: 0 ALICIA TAVERAS [address] [place] [address] [id number] [address] [place] [address] [id number]: (330) Date:2018-05-14 88892Ugf: [id number] [phone] ()Tel: ([phone]) Name:MIKO Aguilar (HP) () [address] [place] [address] 000-0000 (WP) [id number]: 03/07/2018 MILES R Primary MILES R [place] [id number] Insurance:[facility] HENSELDOB: Community ALICIA DRLOT *IN [facility] [id number] Number: Repository [id number]: 330 [id number] [phone] () Date:0542-35-70UQ[address] [address]UR: 03/07/2018 Secondary NOT GIVENUNK [place] Insurance:SELF PAY [facility] Number: Effective Repository Date:2018-03-07 02/28/2018 MILES R Primary MILES R Dion [id number] Insurance:[facility] HENSELDOB: Community ALICIA DRLOT *IN [facility] [id number] Number: Repository [address]Vzw: 330 [id number] [phone] () Date:5209-82-45JQ[address] [address]EV: 02/28/2018 Secondary NOT GIVENUNK Dion Insurance:SELF PAY [facility] Number: Effective Repository Date:2017-12-14 01/10/2018 MILES R Primary MILES R [place] [id number] Insurance:[facility] HENSELDOB: Community ALICIA DRLOT *IN [facility] [id number] Number: Repository [phone]: 330 [id number] [phone] () Date:[id number] [address]PO: 01/10/2018 Secondary NOT GIVENUNK [place] Insurance:SELF PAY [facility] Number: Effective Repository Date:2018-01-10 12/21/2017 MILES R Primary MILES R Dion [id number] Insurance:[facility] HENSELDOB: Community ALICIA DRLOT *IN [facility] [id number] Number: Repository [id number]: 330 [id number] [phone] () Date:1313-58-45DQ [address] [address]RX: 12/21/2017 Secondary NOT GIVENUNK Dion Insurance:SELF PAY [facility] Number: Effective Repository Date:2017-12-12 12/14/2017 MILES R Primary MILES R [place] [id number] Insurance:[facility] HENSELDOB: Community ALICIA DRLOT *IN [facility] [id number], [place] Number: Repository [id number]: 330 [id number] [phone] () Date:1140-67-73PT[address] [address]XU: 12/14/2017 Secondary NOT GIVENUNK Dion Insurance:SELF PAY [facility] Number: Effective Repository Date:2017-12-14 12/11/2017 MILES R Primary MILES R [place] [id number] [facility] H[facility]OB: Community ALICIA DRLOT *IN [facility] [id number], [place] Number: Repository [address]Gwb: 330 [id number] [phone] () Date:0001-22-30UW [address] [address]DS: 12/11/2017 Secondary NOT GIVENUNK [place] Insurance:SELF PAY [facility] Number: Effective Repository Date:2017-12-11 12/10/2017 MILES R Primary MILES R [place] [id number] Insurance:[facility] HENSELDOB: Community ALICIA DRLOT *IN [place] [id number], [place] Number: Repository [id number]: [phone] [id number] [phone] (HP) Date:1954-14-58BA[address] [address]HG: 12/10/2017 Secondary NOT GIVENUNK Dion Insurance:SELF PAY [facility] Number: Effective Repository Date:2017-12-10 11/13/2017 MILES R Primary MILES R Dion [id number] Insurance:MEDICARE HENSELDOB: Community ALICIA DRLOT PART A [facility] [id number], [place] Number: Repository [address]Dmv: 330 [id number] [phone] () Date:2017-11-13 11/13/2017 Secondary MILES R [place] Insurance:MEDICAIDPol HENSELDOB: [facility] icy Number: [id number] Hospital [id number] Repository Date:2017-11-13 11/13/2017 Tertiary NOT GIVENUNK Dion Insurance:SELF PAY [facility] Number: Effective Repository Date:2017-11-13 10/27/2017 MILES R Primary MILES R [place] [id number] Insurance:MEDICARE HENSELDOB: Community ALICIA DRLOT PART A [facility] [id number], [place] Number: Repository [address]Ilp: 330 [id number] [phone] () Date:2017-10-27 10/27/2017 Secondary MILES R [place] Insurance:MEDICAIDPol HENSELDOB: Community icy Number: [id number] Hospital [id number] Repository Date:2017-10-27 10/27/2017 Tertiary NOT GIVENUNK Dion Insurance:SELF PAY [facility] Number: Effective Repository Date:2017-10-27 10/26/2017 MILES R Primary MILES R Dion [id number] Insurance:MEDICARE HENSELDOB: Community ALICIA DRLOT PART A [facility] [id number] Number: Repository [address]Mra: 330 [id number] [phone] (HP) Date:2017-10-26 10/26/2017 Secondary MILES R Dion Insurance:MEDICAIDPol HENSELDOB: [facility] icy Number: [id number] Hospital [id number] Repository Date:2017-10-26 10/26/2017 Tertiary NOT GIVENUNK Dion Insurance:SELF PAY [facility]: Effective Repository Date:2017-10-26 09/29/2017 MILES R Primary MILES R [place] [id number] Insurance:MEDICARE HENSELDOB: [facility] DRLOT PART A BPolicy [id number] Number: Repository [address]Thh: 330 [id number] [phone] () Date:2017-09-29 09/29/2017 Secondary MILES R [place] Insurance:MEDICAIDPol HENSELDOB: [facility] icy Number: [id number] Hospital [id number] Repository Date:2017-09-29 09/29/2017 Tertiary NOT GIVENUNK Dion Insurance:SELF PAY [facility] Number: Effective Repository Date:2017-09-29 09/24/2017 MILES R Primary MILES R [facility] HENSELDOB: Insurance:MEDICARE HENSELDOB: [facility] [id number] PART [facility] Number: [id number] [place] [address] Date:2017-09-[address] [place] [address] [id number]: [phone] [id number] [id number]: Name:[facility] [phone] ()Tel: ([phone]) Administrators LLCPO () () [address]Esdhewagz, 000-0000 () [place] [address]SA: 09/24/2017 Secondary MILES R [facility] Insurance:MEDICAID OF HENSELDOB: [facility] Number: [id number] Repository [id number] Date:2017-09-24[place], [place] [id number]: ([phone]) Name:MAYKEL CARRILLO [phone] [id number], [place] ()Tel: [phone]: () [phone] 08/23/2017 MILES R Primary MILES R Dion [id number] Insurance:MEDICARE HENSELDOB: Community ALICIA DRLOT PART A [facility] [id number] Number: Repository [address]Xnh: 330 [id number] [phone] (HP) Date:2017-08-23 08/23/2017 Secondary MILES R Dion Insurance:MEDICAIDPol HENSELDOB: [facility] icy Number: [id number] Hospital [id number] Repository Date:2017-08-23 08/23/2017 Tertiary NOT GIVENUNK Dion Insurance:SELF PAY [facility] Number: Effective Repository Date:2017-08-23 07/24/2017 MILES R Primary MILES R [place] [id number] Insurance:MEDICARE HENSELDOB: [facility] DRLOT PART A [facility] [id number] Number: Repository [address]Ijp: 330 [id number] [phone] () Date:2017-07-24 07/24/2017 Secondary MILES R [place] Insurance:MEDICAIDPol HENSELDOB: Community icy Number: [id number] Hospital [id number] Repository Date:2017-07-24 07/24/2017 Tertiary NOT GIVENUNK Dion Insurance:SELF PAY [facility] Number: Effective Repository Date:2017-07-24 07/04/2017 MILES R Primary MILES R [place] [id number] Insurance:MEDICARE [facility]ENSELDOB[facility] A [facility] [id number] Number: Repository [id number]: 330 [id number] () Date:2017-07-04 07/04/2017 Secondary MILES R Dion Insurance:MEDICAIDPol HENSELDOB: Community icy Number: [id number] Hospital [id number] Repository Date:2017-07-04 07/04/2017 Tertiary NOT GIVENUNK Dion Insurance:SELF PAY [facility] Number: Effective Repository Date:2017-07-04
== END 2018-05-19 20:30 | disposition home or self-care (01) ==
PROVIDERS: Emergency Provider Emergency Medicine; Family Provider Internal Medicine; PCP Internal Medicine
DX: S60.229A Contusion of unspecified hand, initial encounter (principal); J44.9 Chronic obstructive pulmonary disease, unspecified; I10 Essential (primary) hypertension; I73.9 Peripheral vascular disease, unspecified; Z72.0 Tobacco use; Z79.01 Long term (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 of anticoagulants; Z79.51 Long term (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 of inhaled steroids; Z79.82 Long term (current) use of aspirin; Z79.891 Long term (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 of opiate analgesic; W18.30XA Fall on same level, unspecified, initial encounter; Y93.89 Activity, other specified; Y92.008 Other place in unspecified non-institutional (private) residence as the place of occurrence of the external cause; Y99.8 Other external cause status
CPT/HCPCS: 73130; 99283

== ENCOUNTER → 2018-05-23 07:27 | Outpatient (CLI) | payer MEDICARE, SELFPAY ==
[2018-05-17 17:22] VITALS: BMI 23.6
[2018-05-19 19:23] VITALS: BMI 23.1
--- NOTE | 2018-05-23 07:47 | MRI_ITS ---
STUDY: MRI LUMBAR SPINE WITHOUT CONTRAST REASON FOR EXAM: Male, 67 years old. Low back pain and bilateral leg weakness TECHNIQUE: Standardized fat and water weighted pulse sequences were obtained in the sagittal and axial planes. COMPARISON: 03/23/2016, report only CT abdomen 02/06/2016 FINDINGS: T12-L1: Normal endplates. Normal disc height, hydration and morphology. Normal bilateral facet joints. Normal central canal and bilateral lateral recesses. Normal bilateral intervertebral neural foramina. Normal lumbar lordosis. There is no substantial scoliosis. Normal conus medullaris that terminates at the L1 level. Schmorl's node in the superior endplate of L3. L1-2: Normal endplates. Normal disc height, hydration and morphology. Normal bilateral facet joints. Normal central canal and bilateral lateral recesses. Normal bilateral intervertebral neural foramina. L2-3: Bulging annulus with mild central canal stenosis. L3-4: Bulging annulus with moderate bilateral foraminal stenoses. L4-5: Bulging annulus and central annular fissure with moderate right and mild left foraminal stenoses. L5-S1: Bulging annulus with mild bilateral foraminal stenoses. Normal visualized sacral ala. Normal visualized paraspinous soft tissue structures. A left adrenal mass cannot be excluded, incompletely imaged. This has previously been described as an adenoma. MRI/Spine Lumbar (Routine) IMPRESSION: Multilevel degenerative disease as described. Moderate foraminal stenoses are present bilaterally at L3-4 and on the right at L4-5. Electronically Signed: Neil Murry MD at 9:56 EST Tel , Service support ,
== END ==
PROVIDERS: Family Provider Internal Medicine; PCP Internal Medicine; Referring Provider Anesthesiology Pain Medicine; Visit Provider Anesthesiology Pain Medicine
DX: M54.9 Dorsalgia, unspecified (principal); M79.606 Pain in leg, unspecified
CPT/HCPCS: 72148

== ENCOUNTER → 2018-06-06 15:18 | Outpatient (CLI) | payer MEDICARE, SELFPAY ==
[2018-05-19 19:23] VITALS: BMI 23.1
[2018-06-06 17:27] LABS: Hematocrit 43.6 % (40-54); Hemoglobin 13.9 g/dl (13.0-16.5); Mean Corp Hgb Conc 31.9 g/gl (32-36); Mean Corpuscular Hgb 28.2 pg (27.0-32.0); Mean Corpuscular Volume 88.4 fL (80-94); Mean Platelet Vol. 9.6 fl (6.2-12.0); Platelet Count 388 K/mm3 (150-450); RBC Distribution Width CV 16.7 % (11.6-14.6); RBC Distribution Width SD 53.8 fl (35.1-43.9); Red Blood Count 4.93 M/mm3 (4.6-6.2); White Blood Count 7.2 K/mm3 (4.4-11.0)
[2018-06-06 17:30] LABS: Scan Indicated on CBC? Y/N NO
[2018-06-06 17:39] LABS: Ferritin 31 ng/mL (26-388); Iron 277 ug/dL (65-175)
== END ==
PROVIDERS: Family Provider Internal Medicine; PCP Internal Medicine; Referring Provider Internal Medicine Gastroenterology; Visit Provider Internal Medicine Gastroenterology
DX: D50.9 Iron deficiency anemia, unspecified (principal); K62.5 Hemorrhage of anus and rectum
CPT/HCPCS: 36415; 82728; 83540; 85027

== ENCOUNTER 2018-08-21 13:30 | Outpatient (RCR) | payer MEDICARE, SELFPAY ==
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
--- NOTE | 2018-08-21 14:04 | HP.PTDCSUM_ITS ---
HP - PT D/C Summary It has been my pleasure to treat PEDRO PABLO SIERRA under orders from Elisha Vizcarra MD, for the diagnosis of BACK AND LEG PAIN, FALLS for a total of 8 visit(s). Discharge Date: Please see the following information for a summary of their discharge status. - Subjective Subjective: PATIENT REPORTS HE CAN MOVE AROUND THE HOUSE AND DO SOME CLEANING BETTER NOW. PATIENT REPORTS HIS PAIN IS NOT ANY BETTER SINCE STARTING THERAPY. HE REPORTS THAT HIS WALKING IS NOT BETTER EITHER SINCE STARTING THERAPY. HE REPORTS HE IS TRYING TO DO HIS HOME EX'S. APPOINTMENT WITH DR. ROSARIO (VASCULAR SURGEON) PENDING 09/05/18. - Overall Improvement % Improvement: 60 - Objective Objective/Function: PATIENT HAS MADE MINIMAL PROGRESS WITH PT AND IS INDEP WITH A HEP NOW. THIS PATIENT AMBULATES INDEP'LY INTO PT USING A STRAIGHT CANE OFF AND ON. HE WALKS WITH A MILD LIMP ON THE LLE. NO LOB NOTED WITH GAIT ON LEVEL SURFACES X > 300 FEET. CADANCE IS FAIR AND HE IS ABLE TO MAINTAIN IS BALANCE WHILE LOOKING AROUND AND TALKING WHILE WALKING. PATIENT IS ABLE TO INDEP'LY TRANSFER FROM SIT TO STAND WITHOUT UE ASSIST. LUMBAR MVMT LOSS IS FOLLOWS: FLEX - MIN TO MOD, EXT - LEE ANN, BERTA SG -LEE ANN. INCREASED KYPHOSIS. STRENGTH: RI GHT HIP 4/5, KNEE 5/5, ANKLE 5/5. LEFT HIP 4-/5, KNEE 3-/5, ANKLE 4/5. WITH MMT'ING NOW. FULL BERTA KNEE EXT WITH LEFT KNEE FLEX TO 122 DEG AND RIGHT 136 DEG IN SUPINE WITH A HEEL SLIDE. LEFT KNEE EXT LAG OF APPROX 8 DEGREES IN SITTING. Sitting/Standing Posture: SLOUCHED POSTURE WITH PPT, FORWARD HEAD, ROUNDED SHOULDERS AND INCREASED KYPHOSIS. Lordosis: REDUCED. Active Correction of posture: INCREASES PAIN BUT DECREASED PAIN WITH PASSIVE CORRECTION IN SITTING. Sensory deficit: DECREASED LIGHT TOUCH LEFT LATERAL THIGH AND LEG COMPARED TO RIGHT. Reflexes: BERTA LE'S 1/2. Dural Signs: POSITIVE BERTA LE DURAL SIGN. Core strength: POOR. Palpation: TENDERNESS WITH PALPATION OF LOWER LUMBAR SPINE, LEFT PARASPINALS AND LEFT HIP REGION. OTHER: HELPED PATIENT FILL OUT OSWESTRY AT HIS REQUEST AND THIS WENT RATHER EASILY. PATIENT IS ABLE TO SINGLE LEG STANCE ON RIGHT LE X 24 SECONDS BUT ONLY ABLE TO SLS ON LLE X APPROX 10 SEC BEFORE C/O INCREASED LLE PAIN. LUMBAR OSWESTRY HAS IMPROVED FROM. 33 TO 28. - Goals Goal 1:: DECREASE C/O BACK AND LE SX'S. Goal Progress: Not Progressing Goal 2:: IMPROVE SITTING, STANDING, WALKING, ADL, SLEEP AND HOUSEWORK FUNCTION Goal Progress: Progressing Goal 3:: INSTRUCT IN PROPHYLAXIS Goal Progress: Goal Met - Plan Plan: D/C TO HEP FOR CONTINUED IMPROVEMENT. PATIENT AGREEABLE - D/C Information If there are questions or concerns regarding this patient's physical therapy, please feel free to call me at [phone]. Thank you for the referral of this patient. Sincerely, Nidia Danielle, PT, Cert MDT
== END 2018-08-21 19:00 | disposition home or self-care (01) ==
LOC: PT 13:30
PROVIDERS: Family Provider Internal Medicine; PCP Internal Medicine; Referring Provider Anesthesiology Pain Medicine; Visit Provider Anesthesiology Pain Medicine
DX: M54.9 Dorsalgia, unspecified (principal); M79.606 Pain in leg, unspecified; R29.6 Repeated falls
CPT/HCPCS: 97110; 97162; 97530

== ENCOUNTER → 2018-09-20 09:11 | Outpatient (CLI) | payer MEDICARE, SELFPAY ==
--- NOTE | 2018-09-20 09:28 | ART_ITS ---
Reason For Study: Atherosclerosis with intermittant claudication Procedure A bilateral lower extremity continuous wave Doppler with analog waveform analysis and ankle brachial indexes. Left Segmental Pressures Left brachial= 154mmHg. Left posterior tibial artery = 150mmHg. Left dorsalis pedis artery = NCmmHg. Left digit = 71 mmHg. The left dorsalis pedis waveforms are biphasic. The left posterior tibial artery waveforms are biphasic. Right Segmental Pressures Right brachial= 164mmHg. Right posterior tibial artery = 161mmHg. Right dorsalis pedis artery = NCmmHg. Right digit = 86 mmHg. The right dorsalis pedis waveforms are triphasic. The right posterior tibial artery waveforms are triphasic. Indices The right ankle brachial index by the posterior tibial artery is .98. The right ankle brachial index by the dorsalis pedis is NC. The right digital-brachial index is .52. The left ankle brachial index by the posterior tibial artery is .91. The left ankle brachial index by the dorsalis pedis is NC. The left digital-brachial index is .43. Interpretation Summary 1. Adequate flow at rest with eric 0.98/0.91. right leg is triphasic and left is biphasic. 2. Bilateral small vessel disease wth dbi 0.52/0.43. Ordering Physician: Deni Calzada Referring Physician: Deni Calzada Performed By: Nya Bansal Vasu
--- NOTE | 2018-09-20 09:28 | ADUL_ITS ---
Reason For Study: Atherosclerosis with intermittant claudication Left Velocities Ext Iliac Artery, dist = 83.8 cm./sec. Common Femoral Artery, prox = 81.4 cm./sec. Supf. Femoral Artery, prox = 62.6 cm./sec. Supf. Femoral Artery, mid = 72.0 cm./sec. Supf. Femoral Artery, dist = 68.2 cm./sec. Profunda Femoral Artery = 30.5 cm./sec. Popliteal Artery, proximal, = 32.3 cm./sec. Popliteal Artery, mid = 36.1 cm./sec. Popliteal Artery, distal = 28.6 cm./sec. Post. Tibial Artery, prox = 22.9 cm./sec. Post Tibial Artery, mid = 11.7 cm./sec. Post Tibial Artery, dist. = 12.2 cm./sec. Peroneal Artery, prox = 16.8 cm./sec. Peroneal Artery, mid = 20.3 cm./sec. Peroneal Artery,dist. = 21.8 cm./sec. Ant.Tibial Artery, prox = 27.6 cm./sec. Ant Tibial Artery, mid = 21.9 cm./sec. Ant. Tibial Artery, distal = 25.7 cm./sec. Procedure Exam performed in department. Interpretation Summary 1. Left leg with biphasic flow to monophasic flow distally. no stenosis seen. Ordering Physician: Deni Calzada Referring Physician: Deni Calzada Performed By: Nya Bansal RVT
--- NOTE | 2018-09-20 09:30 | AAVD_ITS ---
Reason For Study: Aorto-Iliac stenosis Aorta Measurements Aorta Doppler Measurements Proximal aorta measures1.6 x 1.6cm. in cross- Peak systolic flow velocities within the proximal sectional axis. aorta measure 69.0 cm/sec. Proximal aorta measures1.5cm. in longitudinal Peak systolic flow velocities within the mid aorta axis. measure 45.7 cm/sec. Mid aorta measures1.3 x 1.3cm. in cross-sectional Peak systolic flow velocities within the distal axis. aorta measure 45.7 cm/sec. Mid aorta measures1.3cm. in longitudinal axis. Distal aorta measures.90 x .96cm. in cross- sectional axis. Distal aorta measures.84cm. in longitudinal axis. Left Iliac Artery Left iliac artery measures .42 cm. in the longitudinal axis. Left iliac artery measures .40 x .51 cm. in the cross-sectional axis. Peak systolic velocity in the left iliac artery measures 124.9 cm/sec. Right Iliac Artery Right iliac artery measures .63 cm. in the longitudinal axis. Right iliac artery measures .67 x .65 cm. in the cross-sectional axis. Peak systolic velocity in the right iliac artery measures 176.4 cm/sec. Procedure Aorta IVC Iliac vasculature or bypass grafts 16219. Exam performed in department. Interpretation Summary 1. no aortoiliac stenosis or aneurysm. Ordering Physician: Deni Calzada Referring Physician: Deni Calzada Performed By: Nya Bansal RVT
== END ==
PROVIDERS: Family Provider Internal Medicine; PCP Internal Medicine; Referring Provider Surgery Vascular Surgery; Visit Provider Surgery Vascular Surgery
DX: I70.0 Atherosclerosis of aorta (principal); I77.1 Stricture of artery; I70.213 Atherosclerosis of native arteries of extremities with intermittent claudication, bilateral legs
CPT/HCPCS: 93922; 93926; 93978

== ENCOUNTER 2018-10-28 20:28 | Emergency (ER) | payer MEDICARE, SELFPAY ==
[2018-10-28 20:29] VITALS: BP 161/82; PULSE 77; RESP 16; TEMP 36.9; O2SAT 94; BMI 23.6
[2018-10-28 20:36] VITALS: O2SAT 94
--- NOTE | 2018-10-28 20:42 | ED.RN ---
PT STATES HE WAS FEELING SOB AND WHEEZY TODAY, CHEST PAIN WITH COUGHING, HAS HAD BURNING WHILE URINATING PT STATES HIS PEE LOOKS BLOODY, AND HAS PAIN IN HIS LEFT LEG. PT IS BLIND IN HIS RIGHT EYE PUPIL IS NONREACTIVE 5MM, LEFT PUPIL IS PERRL 3MM.
--- NOTE | 2018-10-28 20:47 | ED.VISSUMM ---
- ER Visit Summary Date of Service: 10/28/18 Chief Complaint: Shortness of breath History of Present Illness: The patient is a 68 M who complains of shortness of breath. Is been ongoing for 3 days. He ran out of his albuterol inhaler and nebulizer treatments and that is when his symptoms got worse. He has had a cough productive of sputum. He has had some sharp chest pains as well. He denies any fevers. He admits to some dysuria. He told his doctor about hematuria but he states that went away but was told to come to the ER if he did develop pain with urination. He does have a history of COPD and continues to smoke. Physical Examination: Vital signs reviewed. HEENT exam unremarkable. Heart is regular rate and rhythm without murmurs. Lungs have diffuse expiratory wheezing. There is no chest tenderness. Abdomen soft and nontender. Extremities have no edema. His neurologic exam is normal. Skin exam reveals no rashes. Test Results: Urinalysis has 50-100 white blood cells. Chest x-ray shows a questionable mass and emphysema. The CT of the chest reveals no mass located. There is emphysematous changes with no infiltrates. Emergency Department Course and Treatment: Patient was given albuterol and prednisone. I will give him Levaquin for the UTI which will cover pulmonary pathology as well. I will give him Tylenol for his headache. I will refill his albuterol inhaler and nebulizer treatment medications. Levaquin for home. He will follow-up with his PCP Treatment Plan: [] Disposition: Discharge Impression: COPD exacerbation, UTI This note was generated with [employer] dictation software. It may contain incorrect words, spelling, and punctuation that were not noted in review of the chart prior to signing ED Disposition - Plan for ED Patient: Referrals: Daija Douglas MD [Primary Care Provider] -
[2018-10-28] MEDS: Albuterol 2.5 MG/3 ML VIAL.NEB. INHALATION (20:57)
[2018-10-28 20:58] VITALS: PULSE 77; RESP 20
[2018-10-28] MEDS: predniSONE 20 MG Tablet 60 MG PO (21:01)
--- NOTE | 2018-10-28 21:14 | ED.RN ---
PT LUNG SOUNDS ARE CLEAR ON AUSCULTATION IN THE UPPER LOBES AND SLIGHTLY DIMINISHED IN THE LOWER LOBES BUT CLEAR AFTER COMPLETING THE BREATHING TREATMENT.
--- NOTE | 2018-10-28 21:28 | RAD_ITS ---
STUDY: X-RAY CHEST REASON FOR EXAM: Male, 68 years old. Cough. TECHNIQUE: Single frontal view of the chest. COMPARISON: July 24, 2017 FINDINGS: There is a vague rounded opacity within the lateral right lower lung. The lungs are hyperinflated. Normal size heart. Normal mediastinum and gale. Normal visualized pulmonary arteries. There is atherosclerotic calcification of the aortic arch with tortuosity. There are diffuse degenerative changes of the visualized thoracic spine. Normal visualized ribs, clavicles, and shoulders. There is no demonstrated abnormality of the visualized soft tissue structures of the upper abdomen. RAD/Chest PA and Lateral IMPRESSION: Vague rounded opacity within the right lateral lower lung, may be secondary to a confluence of shadows however cannot exclude underlying mass, recommend CT for further evaluation. COPD. Electronically Signed: Maura Spears MD at 21:54 EDT Tel , Service support ,
[2018-10-28 21:41] LABS: Mucous, Urine 0 SEEN /hpf (<or=2+); Squamous Epithelial Cells - UA 0 SEEN /hpf (0-5)
[2018-10-28 21:48] LABS: Color, Urine Yellow (Yellow); Glucose, Dipstick Normal (Normal); Ketone-Dipstick Negative (Negative); Leukocyte Esterase-Dipstick 500 /ul (Negative); Nitrite-Dipstick Positive (Negative); Occult Blood-Urine 150 /ul (Negative); Protein-Dipstick 30 mg/dl (Negative); Urine Bilirubin Dipstick Negative (Negative); Urine Clarity Cloudy (Clear); Urine Urobilinogen Normal (Normal)
--- NOTE | 2018-10-28 22:03 | CT_ITS ---
STUDY: CT CHEST WITHOUT CONTRAST REASON FOR EXAM: Male, 68 years old. Cough. RADIATION DOSAGE (If Supplied By Facility): CTDIvol = ( 10.36 ) mGy, DLP = ( 422.18 ) mGycm TECHNIQUE: Transaxial imaging was performed without the administration of intravenous contrast material. Individualized dose optimization techniques were used for this CT. COMPARISON: Chest radiograph dated October 28, 2018. And CT dated September 28, 2015 FINDINGS: There are emphysematous changes present. There is biapical scarring. There is stable focal thickening of the lateral right major fissure. Normal heart and pericardium. Normal mediastinum. Normal hilar regions. Normal unenhanced pulmonary arteries. There is atherosclerotic calcification of the aortic arch and descending thoracic aorta. There are multi-level degenerative changes of the thoracic spine. The limited images of the abdomen demonstrate stable bilateral adrenal nodules consistent with underlying adenomas. There is cholelithiasis. CT/Chest without Contrast IMPRESSION: Emphysema. No mass identified. Atherosclerosis. Stable adrenal adenomas. Cholelithiasis. Electronically Signed: Maura Spears MD at 22:35 EDT Tel , Service support ,
[2018-10-28 22:10] LABS: Bacteria 3+ /hpf (None Seen)
[2018-10-28 22:11] LABS: White Blood Cells 50-100 SEEN /hpf (0-5)
[2018-10-28 22:12] LABS: Red Blood Cells-Urine 5-10 SEEN /hpf (0-5); Transitional Epithelial - Ur 0-5 SEEN /hpf (0-5)
[2018-10-28 22:35] VITALS: BP 148/72; PULSE 76; RESP 16; O2SAT 96
--- NOTE | 2018-10-28 22:49 | ED.DEP ---
ED Disposition - Plan for ED Patient: Disposition: Home or Assisted Living Instructions: ED COPD Flare Prescriptions: Albuterol Aerosols [Ventolin Aerosols] 2.5 mg INHALATION Q4H PRN #25 vial Albuterol Inhaler [Ventolin Hfa] 1 - 2 puff INHALATION Q4H PRN PRN #1 inhaler PRN Reason: Wheezing levoFLOXacin tablet [Levaquin] 500 mg PO DAILY #6 tab predniSONE tablet 60 mg PO DAILY #12 tab Referrals: Daija Douglas MD [Primary Care Provider] -
[2018-10-28] MEDS: Acetaminophen 500 MG Tablet 1000 MG PO (23:02)
[2018-10-28] MEDS: levoFLOXacin 750 MG Tablet PO (23:03)
[2018-10-28 23:10] VITALS: BP 163/71; PULSE 73; RESP 17; O2SAT 93
== END 2018-10-28 23:11 | disposition home or self-care (01) ==
PROVIDERS: Emergency Provider Emergency Medicine; Family Provider Internal Medicine; PCP Internal Medicine
DX: J43.9 Emphysema, unspecified (principal); N39.0 Urinary tract infection, site not specified; I10 Essential (primary) hypertension; F17.200 Nicotine dependence, unspecified, uncomplicated; Z79.82 Long term (current) use of aspirin; Z79.01 Long term (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 of anticoagulants; Z79.899 Other long term (current) drug therapy
CPT/HCPCS: 71046; 71250; 81001; 94640; 99283

== ENCOUNTER → 2018-11-22 | Outpatient (CLI) | payer MEDICARE, SELFPAY ==
[2018-10-28 20:29] VITALS: BMI 23.6
[2018-11-22 14:51] LABS: Amphetamine Urine VISTA NEGATIVE (<1000 ng/mL); Barbiturate Urine VISTA NEGATIVE (< 200 ng/mL); Benzodiazepine Urine VISTA NEGATIVE (< 200 ng/mL); Cocaine Urine VISTA NEGATIVE (< 300 ng/mL); Ecstacy Urine VISTA NEGATIVE (< 500 ng/mL); Methadone Urine VISTA NEGATIVE (< 300 ng/mL); PCP Urine VISTA NEGATIVE (< 25 ng/mL); THC Urine VISTA NEGATIVE (< 50 ng/mL); Vista UDS pH Range 6
== END | disposition home or self-care (01) ==
LOC: LAB 13:24
PROVIDERS: Family Provider Internal Medicine; PCP Internal Medicine; Referring Provider Anesthesiology Pain Medicine; Visit Provider Anesthesiology Pain Medicine
DX: F11.20 Opioid dependence, uncomplicated (principal)
CPT/HCPCS: 80307

== ENCOUNTER 2018-12-21 18:29 | Emergency (ER) | payer MEDICARE, SELFPAY ==
[2018-12-21 18:30] VITALS: BP 163/76; PULSE 64; RESP 15; TEMP 36.7; O2SAT 93; BMI 22.8
[2018-12-21 19:10] VITALS: O2SAT 92
--- NOTE | 2018-12-21 19:45 | ED.RN ---
THIS NURSE WENT INTO THE ROOM TO DISCONNECT THE PT FROM THE BP CUFF AND MARKETING DEVELOPER. PT BEGAN YELLING AND CUSSING AT THIS NURSE. THIS NURSE INFORMED THE PT THAT IT IS NOT APPROPRIATE TO YELL AND CUSS AT THE STAFF AND THIS BEHAVIOR NEEDS TO STOP. PT APOLOGIZED TO THIS NURSE. PT REQUESTED TO SPEAK TO THE RN TEACHER. THIS NURSE SAT AND SPOKE WITH THE PT ABOUT HIS FRUSTRATIONS. PT STATES THAT DOCTOR KEPT ASKING ME QUESTIONS AND IT HURTS MY HEAD TO ANSWER QUESTIONS. THIS NURSE EXPLAINED THAT THE DOCTOR ASKS ADDITIONAL QUESTIONS IN ATTEMPT TO DETERMINE HIS CURRENT CONDITION AND WHAT TESTING OR LAB WORK IS APPROPRIATE. DURING THIS CONVERSATION, PT STATES YOU DO NOT UNDERSTAND HOW MANY TIMES I HAVE TRIED TO KILL MYSELF. IF I GO HOME RIGHT NOW I AM GOING TO TAKE ALL OF MY MEDICINE. I HAVE ENOUGH MEDICINE TO KILL EVERYONE IN THIS PLACE. THIS NURSE CONFIRMED SO WHAT YOU ARE TELLING ME IS IF YOU GO HOME YOU ARE GOING TO KILL YOURSELF. PT STATES YES IF I GO HOME I AM GOING TO KILL MYSELF. THIS NURSE SPOKE WITH DR PAYTON ABOUT THE SAME. DR PAYTON BACK IN THE ROOM TO SPEAK WITH THE PT. PT APOLOGIZED TO DR PAYTON FOR ACTING THE WAY HE DID. DR PAYTON SPOKE WITH THE PT ABOUT BEING SUICIDAL. PT STATES IF YOU HELP MY HEADACHE THEN NO I AM NOT SUICIDAL. PT EXPLAINED THAT ALL OF HIS MEDICATIONS ARE IN A LOCKED MEDICATION DISPENSER. HE DOES NOT HAVE A CISNEROS TO THE MEDICATION DISPENSER ONLY THE NURSE HAS THE CISNEROS.
--- NOTE | 2018-12-21 19:54 | ED.DCSUM_ITS ---
- ER Visit Summary Date of Service: 12/21/18 Chief Complaint: Possible aspiration History of Present Illness: The patient is a 68 M who states that earlier today he was chewing some morales beans when he felt that some of them went into his left lung. He states he feels short of breath has been coughing up phlegm. He states that has not happened he coughed very hard and eventually some slimy material came out. Due to the forcefulness of his coughing he developed a headache. Is described as all over and aching. He denies any neurologic deficits. He states he has a history of COPD and needs solution for his machine. He is a smoker Physical Examination: Afebrile vital signs are stable Gen: Well-nourished well-developed Head: Normocephalic atraumatic Eyes: Perrl EOMI ENT: TMs clear no rhinorrhea moist mucous membranes Neck: Supple no lymphadenopathy no JVD nontender CVS: Regular rate rhythm no murmurs normal S1-S2 Respiratory: No distress expiratory wheezing. Moist cough chest nontender Abdomen: Soft nontender nondistended normal bowel sounds no masses Back: Nontender Extremity: Nontender no edema Skin: Normal color no rash Neuro: alert orientated ?3 CN II-XII intact normal strength sensation Emergency Department Course and Treatment: An attempted to get history from the patient patient became very angry. He began waving his fist at me telling me I need to be careful. Patient was informed that that behavior is not tolerated in the department and that if he wishes to be aggressive and threatening he can do it elsewhere. He was asked to leave the emergency department. When nursing went back into the room he tells him that he is suicidal and wants to go home take all of his medications. He states he wants to speak with the head doctor to fire the doctor that saw him (me). He states that his daughter who is a nurse knows more about medicine than anybody and we better be careful what we say to him because when she gets here there will be held to pay. When I go back into the room and asked him if he is suicidal he states that his medications are in a machine that is locked that only dispenses so many at the appropriate time. He states that he does not know how to talk to male people. He states he is not actually suicidal. He states that he just wants some help with his breathing. Patient was advised that if he can remain calm and appropriate with staff would be happy to give him a breathing treatment. I think it is highly [place] that he did have a small aspiration. I do not believe at this time he has a pneumonia. He has bronchospasm and will treat him with albuterol aerosols and a short course of prednisone. He received Tylenol for headache. Should he develop fevers that time we would evaluate for aspiration pneumonia. Impression: 1. Aspiration 2. Bronchospasm 3. Headache This note was generated with [employer] dictation software. It may contain incorrect words, spelling, and punctuation that were not noted in review of the chart prior to signing ED Disposition - Plan for ED Patient: Disposition: Home or Assisted Living Instructions: Copd Flare Prescriptions: Prednisone [Deltasone] 40 mg PO DAILY #10 tab Prescription Printed Albuterol Aerosols [Ventolin Aerosols] 2.5 mg INHALATION Q4H PRN #25 vial Prescription Printed Referrals: Daija Douglas MD [Primary Care Provider] - 3-5 Days
[2018-12-21 20:05] VITALS: PULSE 79; RESP 26
[2018-12-21] MEDS: Ipratropium/Albuterol Sulfate 3 ML AMPUL.NEB INHALATION (20:05)
[2018-12-21] MEDS: Acetaminophen 500 MG Tablet 1000 MG PO (20:19)
[2018-12-21] MEDS: predniSONE 20 MG Tablet 60 MG PO (20:19)
[2018-12-21 20:26] VITALS: BP 159/87; PULSE 71; RESP 22; O2SAT 97
--- NOTE | 2018-12-21 20:27 | ED.RN ---
THIS NURSE REVIEWED D/C INSTRUCTIONS WITH PT. PT VERBALIZED UNDERSTANDING OF INSTRUCTIONS. IV D/C. IV CATHETER INTACT. PT TOLERATED WELL. PT DENIES FURTHER NEEDS OR QUESTIONS AT THIS TIME.
== END 2018-12-21 20:28 | disposition home or self-care (01) ==
PROVIDERS: Emergency Provider Emergency Medicine; Family Provider Internal Medicine; PCP Internal Medicine
DX: T17.920A Food in respiratory tract, part unspecified causing asphyxiation, initial encounter (principal); J44.1 Chronic obstructive pulmonary disease with (acute) exacerbation; J98.01 Acute bronchospasm; R51 Headache; F17.200 Nicotine dependence, unspecified, uncomplicated
CPT/HCPCS: 94640; 99283; A4216

== ENCOUNTER 2019-02-09 10:11 | Emergency (ER) | payer MEDICARE, SELFPAY ==
[2019-02-09 10:12] VITALS: BP 137/80; PULSE 68; RESP 14; TEMP 36.1; O2SAT 95; BMI 22.1
--- NOTE | 2019-02-09 10:58 | RAD_ITS ---
STUDY: X-RAY - PELVIS AND LEFT HIP REASON FOR EXAM: Male, 68 years old. Fall, left hip pain TECHNIQUE: 3 views of the pelvis and hip. COMPARISON: None. FINDINGS: There is a non-specific bowel gas pattern. Normal visualized soft tissue structures. Vascular calcifications and stents are identified. Sclerotic lesion of the right ilium is stable when compared to prior CT of 02/06/2016. Normal bilateral superior and inferior pubic rami. Normal pubic symphysis. Normal bilateral ischial tuberosities. Normal visualized femoral head. Normal acetabulum. Normal hip joint. RAD/HIP, UNI W/ Pelvis 2-3 Views IMPRESSION: 1. No demonstrated fracture or malalignment. If pain persists or if there is a high index of suspicion for fracture, CT/MRI suggested. Electronically Signed: Dylan Zaragoza MD ([place]) at 11:31 EDT , Service support ,
--- NOTE | 2019-02-09 10:58 | RAD_ITS ---
STUDY: X-RAY - LUMBAR SPINE REASON FOR EXAM: Male, 68 years old. Fall, back pain TECHNIQUE: 3 view(s) of the lumbar spine were obtained. COMPARISON: CT from 02/06/2016 FINDINGS: Normal lumbar lordosis. There is no substantial scoliosis. There is a normal alignment of the vertebrae. There is diffuse demineralization with multi-level endplate spondylosis. Disc heights are relatively preserved. Compression deformity of L3 is stable since 2016. Extensive arterial vascular stents are noted as well as atherosclerosis. RAD/Lumbar Spine 2 or 3 Views IMPRESSION: 1. No acute compression fracture. 2. Stable, chronic L3 compression fracture. Electronically Signed: Dylan Zaragoza MD ([place]) at 11:33 EDT , Service support ,
[2019-02-09 11:45] VITALS: BP 132/80; PULSE 70; RESP 14; O2SAT 98
--- NOTE | 2019-02-09 11:45 | ED.VIS.BACK ---
History of Present Illness Informant: Patient Onset: Days - 2 days ago Context: Sudden Onset Injury: Fall Timing: Continuous Quality: Aching Location: Lumbar, Buttock, Left Leg Current Severity: Moderate Maximum Severity: Moderate Worsened by: improves with: Movement, Ambulation Relieved by: Nothing Narrative: 68-year-old male presents with low back and left hip pain after a fall 2 days ago. It was mechanical fall in his kitchen. He had no prodromal symptoms or head trauma or loss of consciousness. He is still ambulatory. The pain radiates down into his legs. No numbness tingling or weakness difficulty with urination constipation or loss of bowel or bladder function or fevers. Prior similar symptoms: Yes, With Prior Back Pain Recent Illness/Hospitalization: No <Cornelius Gaxiola - Last Filed: 02/09/19 11:50> <David Walton - Last Filed: 02/09/19 11:53> Chief Complaint: Back Past Medical History Past Medical History: - - COPD Surgical History: appendectomy, cholecystectomy, herniorrhaphy, - - Carpal tunnel surgery. Surgery on right eye at age 18 Lives: Alone Smoking Status: Light Smoker (<10/day) Alcohol: Occasional - Family History Paternal Family History: Reports: No pertinent history Maternal Family History: Reports: No pertinent history Additional Family History: reports a family history of diabetes <Cornelius Gaxiola - Last Filed: 02/09/19 11:50> <David Walton - Last Filed: 02/09/19 11:53> - Allergies and Home Meds Allergies/Adverse Reactions: Allergies No Known Allergies Allergy (Verified 05/19/18 19:23) Primary Care Physician: Daija Douglas MD [Primary Care Provider] - Review of Systems All systems negative except as indicated Musculoskeletal: Reports: Back pain <Cornelius Gaxiola - Last Filed: 02/09/19 11:50> Physical Exam Vital Signs/Narrative: Vital Signs Temp Pulse Resp BP Pulse Ox 02/09/19 10:12 97 F L 68 14 137/80 H 95 Inital Vital Signs reviewed: Yes General: Well nourished, Well developed Head: Normocephalic, Atraumatic Eyes: Perrl, EOMI ENT: Moist mucous membranes Neck: Supple, Nontender Cardiovascular: Regular rate, Regular rhythm Respiratory: No distress, CTA bilaterally, Chest nontender Abdomen: Soft, Nontender, Nondistended, Normal bowel sounds, No masses Back: Normal Inspection, Paraspinal Tenderness, Negative SLR - Right, Negative SLR - Left. Negative for: Spinal tenderness Extremeties: Nontender, No edema Skin: Normal color, No rash Neuro: Alert, Oriented, Normal Strength, Normal Sensation, Normal DTR, Normal Gait, Normal Reflexes <Cornelius Gaxiola - Last Filed: 02/09/19 11:50> Vital Signs/Narrative: Vital Signs Temp Pulse Resp BP Pulse Ox 02/09/19 11:45 70 14 132/80 H 98 02/09/19 10:12 97 F L 68 14 137/80 H 95 <David Walton - Last Filed: 02/09/19 11:53> Diagnostic/Tx/Re-eval - Medical Decision Making Patient declined analgesia. X-rays of his hip/pelvis, and lumbar spine only show chronic L3 compression fracture no new findings. Patient reassured. He is on Neurontin for chronic pain. He will continue this. He will alternate Tylenol. Advised on rest ice and follow-up with his primary care physician. He is ambulatory and is agreeable with this plan. Impressions Hip/Pelvis X-Ray 02/09/19 10:58 IMPRESSION: 1. No demonstrated fracture or malalignment. If pain persists or if there is a high index of suspicion for fracture, CT/MRI suggested. Electronically Signed: Dylan Zaragoza MD ([place]) at 11:31 EDT , Service support , Lumbar Spine X-Ray 02/09/19 10:58 IMPRESSION: 1. No acute compression fracture. 2. Stable, chronic L3 compression fracture. Electronically Signed: Dylan Zaragoza MD ([place]) at 11:33 EDT , Service support , 02/09/19 10:58 HIP, UNI W/ Pelvis 2-3 Views [RAD] Stat Xray Lumbar [Lumbar Spine 2 or 3 Views] [RAD] Stat <Cornelius Gaxiola - Last Filed: 02/09/19 11:50> - Medical Decision Making Seen and examined with Cornelius Turner, agree with the above patient has some discomfort to the left lateral area of the back after fall see the note for full details, he has full range of motion of his lower extremities abdomen soft nontender he has some mild pain on exam to this area neurologic exam normal please see the full note for details and management plan <David Walton - Last Filed: 02/09/19 11:53> Disposition: Home <Cornelius Gaxiola - Last Filed: 02/09/19 11:50> ED Disposition <Cornelius Gaxiola - Last Filed: 02/09/19 11:50> <David Walton - Last Filed: 02/09/19 11:53> - Plan for ED Patient: Disposition: Home or Assisted Living Diagnosis: Contusion of hip, left, Contusion of back Instructions: CONTUSION, Back Referrals: Daija Douglas MD [Primary Care Provider] -
[2019-02-09 12:01] VITALS: BP 126/78; PULSE 80; RESP 14; O2SAT 98
== END 2019-02-09 12:12 | disposition home or self-care (01) ==
PROVIDERS: Emergency Provider Physician Assistant Medical; Family Provider Internal Medicine; PCP Internal Medicine
DX: S70.02XA Contusion of left hip, initial encounter (principal); S20.222A Contusion of left back wall of thorax, initial encounter; J44.9 Chronic obstructive pulmonary disease, unspecified; F17.200 Nicotine dependence, unspecified, uncomplicated; W18.30XA Fall on same level, unspecified, initial encounter; Y93.89 Activity, other specified; Y92.000 Kitchen of unspecified non-institutional (private) residence as the place of occurrence of the external cause; Y99.8 Other external cause status
CPT/HCPCS: 72100; 73502; 99282

== ENCOUNTER → 2019-03-01 | Outpatient (CLI) | payer MEDICARE, SELFPAY ==
[2019-02-09 10:12] VITALS: BMI 22.1
--- NOTE | 2019-03-01 16:00 | MRI_ITS ---
STUDY: MRI LUMBAR SPINE WITHOUT CONTRAST REASON FOR EXAM: Male, 68 years old. Left hip pain TECHNIQUE: Standardized fat and water weighted pulse sequences were obtained in the sagittal and axial planes. COMPARISON: May 23, 2018 FINDINGS: T12-L1: Normal endplates. Normal disc height, hydration and morphology. Normal bilateral facet joints. Normal central canal and bilateral lateral recesses. Normal bilateral intervertebral neural foramina. Normal lumbar lordosis. There is no substantial scoliosis. Normal conus medullaris that terminates at T12 L1-2: Mild endplate spurring.. Normal disc height, hydration and morphology. Normal bilateral facet joints. Normal central canal and bilateral lateral recesses. Normal bilateral intervertebral neural foramina. L2-3: Mild endplate spurring. Chronic wedging of superior endplate of L3.. Normal disc height, desiccation and minimal annular bulge with small central annular tear but no focal disc protrusion. Normal bilateral facet joints. Normal central canal and bilateral lateral recesses. Normal bilateral intervertebral neural foramina. L3-4: Grade 1 retrolisthesis. Normal endplates. Normal disc height, desiccation and minimal bulging disc osteophyte complex.. Normal bilateral facet joints. Normal central canal and bilateral lateral recesses. Mild to moderate bilateral neural foraminal encroachment. L4-5: Normal endplates. Normal disc height, desiccation and minimal annular bulge.. Mild facet arthropathy and thickening of ligamenta flava greater on the right.. Normal central canal and bilateral lateral recesses. Moderate right and mild left neuroforaminal stenosis L5-S1: Normal endplates. Normal disc height, desiccation and minimal annular bulge in association with tiny left paracentral disc extrusion with superior migration of disc fragment mildly encroaching upon the left anterior thecal sac.. Bilateral facet arthropathy and mild thickening of ligamenta flava.. Normal central canal and bilateral lateral recesses. Mild bilateral neural foraminal encroachment. Normal visualized sacral ala. Normal visualized paraspinous soft tissue structures. No significant change since prior exam MRI/Spine Lumbar (Routine) IMPRESSION: No evidence for acute fracture or other significant bony pathology. Multilevel spinal stenosis secondary to disc disease and bony hypertrophy. Findings as above Electronically Signed: Gonzales Chaney MD at 17:02 EDT , Service support ,
== END | disposition home or self-care (01) ==
LOC: MRI 15:25
PROVIDERS: Family Provider Internal Medicine; PCP Internal Medicine; Referring Provider Anesthesiology Pain Medicine; Visit Provider Anesthesiology Pain Medicine
DX: M54.9 Dorsalgia, unspecified (principal); R29.898 Other symptoms and signs involving the musculoskeletal system
CPT/HCPCS: 72148

== ENCOUNTER 2019-08-16 17:25 | Emergency (ER) | payer MEDICARE, MEDICAID, SELFPAY ==
[2019-08-16 17:27] VITALS: BP 176/96; PULSE 70; RESP 18; TEMP 36.8; O2SAT 96; BMI 25.4
[2019-08-16 18:26] LABS: Absolute Lymphocyte Count 0.99 X10^3/uL (0.83-4.51); Absolute Neutrophil Count 11.2 X10^3/uL (2.0-7.7); Basophil# 0.05 X10^3/uL; Basophil% 0.4 % (0-1); Hemoglobin 14.8 g/dL (13.0-16.5); Lymphocyte # 0.99 X10^3/ul (4.0); Lymphocyte % 7.8 % (19-41); Mean Corp Hgb Conc 32.2 g/dL (32-36); Mean Corpuscular Hgb 30.2 pg (27.0-32.0); Mean Corpuscular Volume 93.9 fL (80-94); Mean Platelet Vol. 9.8 fl (6.2-12.0); Monocyte# 0.42 X10^3/uL; Monocyte% 3.3 % (0-10); NRBC Flagged by Analyzer 0 % (0-5); Neutrophil % 87.7 % (47-70); Platelet Count 324 K/mm3 (150-450); RBC Distribution Width CV 15.2 % (11.6-14.6); RBC Distribution Width SD 52.6 fl (35.1-43.9); White Blood Count 12.8 K/mm3 (4.4-11.0)
[2019-08-16 18:33] LABS: International Normalized Ratio 1.6; Prothrombin Time (Protime)PT. 18.6 SECONDS (11.7-14.9)
[2019-08-16 18:36] LABS: Anion Gap 4 (5-15); BUN 16 mg/dL (7-18); BUN/Creat Ratio 15.2 RATIO (10-20); Calcium,Total 9.3 mg/dL (8.5-10.1); Chloride 107 mmol/L (98-107); Creatinine, Serum 1.05 mg/dL (0.70-1.30); EST Glomerular Filtration Rate 74 mL/min (>60); Est Glom Filt Rate - Afr Amer 90 mL/min (>60); Estimated Creatinine Clearance 63.33 ml/min; Glucose 129 mg/dL (74-106); Potassium 3.9 mmol/L (3.5-5.1); Sodium Level 140 mmol/L (136-145)
[2019-08-16] MEDS: Morphine 4 MG/ML Syringe IV (18:39)
[2019-08-16 19:19] LABS: Bacteria 0 SEEN /hpf (None Seen); Mucous, Urine 0 SEEN /hpf (<or=2+); Red Blood Cells-Urine 0 SEEN /hpf (0-5); Squamous Epithelial Cells - UA 0 SEEN /hpf (0-5); White Blood Cells 0 SEEN /hpf (0-5)
[2019-08-16 19:24] LABS: Color, Urine Straw (Yellow); Glucose, Dipstick Normal (Normal); Ketone-Dipstick Negative (Negative); Leukocyte Esterase-Dipstick Negative /ul (Negative); Nitrite-Dipstick Negative (Negative); Occult Blood-Urine Negative /ul (Negative); Protein-Dipstick Negative (Negative); Urine Bilirubin Dipstick Negative (Negative); Urine Clarity Clear (Clear); Urine Urobilinogen Normal (Normal); Urine pH 6.5 (5.0 - 8.0)
--- NOTE | 2019-08-16 19:56 | ED.DCSUM_ITS ---
- ER Visit Summary Date of Service: 08/16/19 Chief Complaint: Left thigh pain History of Present Illness: The patient is a [address] Vizcarra, Dr. Douglas, and Dr. Staples. Patient reports that he saw Dr. Staples 2 weeks ago and had x-rays, ultrasound, and an MRI of his leg and that showed that the stents were bunched together. He states that he called her today and that he was told to come to the emergency department be transferred there for admission. Patient reports he has left thigh pain that began 2 weeks ago. Is a continuous squeezing pain that is 9 out of 10 currently and 10 out of 10 at worst. Is worsened by walking. Is relieved by sitting in his recliner and Vicodin. Physical Examination: Vitals: Stable. Afebrile. General: Well-nourished and well-developed. Head: Normocephalic atraumatic. Neck: Supple, no lymphadenopathy. No JVD. Nontender. Cardiovascular: Regular rate and rhythm. No murmurs. Respiratory: No respiratory distress. Clear to auscultation bilaterally. Abdominal: Soft, nontender, nondistended, normal bowel sounds. No guarding, rebound, or peritoneal signs. Back: Moderate diffuse tenderness outpatient over the lumbar spine and paraspinous musculature lumbar region bilaterally. Extremities: Mild tenderness palpation to the medial left thigh. He has a 2+ dorsalis pedis pulse. Less than 2-second capillary refill. There is no peripheral edema. He has no tenderness over his calf., no edema. Skin: Normal color, no rash. Neurologic: Alert and oriented ?3. Cranial nerves II through XII are intact. Normal strength and sensation. Psych: Normal affect. Test Results: CBC shows a white count 12.8 with segmented neutrophils of 88. Chem-7 shows a glucose of 129. INR is 1.6. UA is normal. Emergency Department Course and Treatment: Patient was treated with a dose of morphine and Zofran IV. He is resting comfortably. Treatment Plan: The patient was discussed with , covering for Dr. Staples his vascular surgeon, he agrees that if the patient has a palpable dorsalis pedis pulse that he does not need to be admitted. He will be discharged instructions to follow-up with Dr. Staples next week for further evaluation and treatment. He is in pain management and I am not going to change his opiate- based medications. Return to the emergency department for any worsening symptoms. Disposition: To home in improved and stable condition. Impression: 1. Low back pain, chronic. 2. Left thigh pain. 3. Peripheral arterial disease. This note was generated with [employer] software. It may contain incorrect words, spelling, and punctuation that were not noted in review of the chart prior to signing ED Disposition - Plan for ED Patient: Disposition: Home or Assisted Living Instructions: Peripheral Arterial Stent Additional Instructions: Follow up with Dr. Staples as soon as possible.
[2019-08-16 20:23] VITALS: BP 167/94; PULSE 56; RESP 20; O2SAT 94
== END 2019-08-16 20:24 | disposition home or self-care (01) ==
LOC: ED 17:58
PROVIDERS: Emergency Provider Emergency Medicine; PCP Internal Medicine
DX: M54.5 Low back pain (principal); M79.652 Pain in left thigh; I73.9 Peripheral vascular disease, unspecified; I10 Essential (primary) hypertension; J44.9 Chronic obstructive pulmonary disease, unspecified; E11.9 Type 2 diabetes mellitus without complications; Z79.899 Other long term (current) drug therapy; Z79.01 Long term (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 of anticoagulants; Z87.891 Personal history of nicotine dependence
CPT/HCPCS: 80048; 81001; 85025; 85610; 96374; 99283; J7040; A4216

== ENCOUNTER → 2019-08-29 14:18 | Outpatient (CLI) | payer MEDICARE, MEDICAID, SELFPAY ==
[2019-08-16 17:27] VITALS: BMI 25.4
[2019-08-29 16:17] LABS: Amphetamine Urine VISTA NEGATIVE (<1000 ng/mL); Barbiturate Urine VISTA NEGATIVE (< 200 ng/mL); Benzodiazepine Urine VISTA NEGATIVE (< 200 ng/mL); Cocaine Urine VISTA NEGATIVE (< 300 ng/mL); Ecstacy Urine VISTA NEGATIVE (< 500 ng/mL); Methadone Urine VISTA NEGATIVE (< 300 ng/mL); PCP Urine VISTA NEGATIVE (< 25 ng/mL); THC Urine VISTA NEGATIVE (< 50 ng/mL); Vista UDS pH Range 7
== END ==
PROVIDERS: PCP Internal Medicine; Referring Provider Anesthesiology Pain Medicine; Visit Provider Anesthesiology Pain Medicine
DX: F11.20 Opioid dependence, uncomplicated (principal)
CPT/HCPCS: 80307

== ENCOUNTER 2019-10-16 16:25 | Emergency (ER) | payer MEDICARE, MEDICAID, SELFPAY ==
[2019-10-16] VITALS (7 sets, daily range): BP systolic 150–178; BP diastolic 66–81; PULSE 71–88; RESP 17–22; TEMP 36.6–37.1; O2SAT 92–98; BMI 24.0
--- NOTE | 2019-10-16 17:30 | ED.DCSUM_ITS ---
- ER Visit Summary Date of Service: 10/16/19 Chief Complaint: Possible surgical site infection History of Present Illness: The patient is a 69 M who presents with possible infection to his surgical site in his left hip area. Patient had recent vascular surgery on 10/08/2019 at [facility] by Dr. Villa. Patient states he feels he was discharged too soon. Patient noted some white and yellow drainage from his wound. Patient admits to subjective fevers. Patient states his fever was so high I almost passed out. Patient does admit to some occasional shortness of breath. Patient admits to nausea but denies any vomiting. Patient denies any chest pain. Physical Examination: Vital signs are stable. Patient is afebrile here. Patient is in no acute distress. Oral mucosa is pink and moist. Neck is supple. Trachea is midline. There is no JVD. Heart was regular rate and rhythm. Lungs are clear and equal bilateral. Abdomen is soft. Bowel sounds are normal. There is no tenderness. Cranial nerves II through XII are intact. There are no focal motor or sensory deficits. Skin is warm and dry. There is some drainage from the surgical site on the anterior aspect of his left hip. There is some mild erythema of the wound margins. There is tenderness to palpat ion over this area. There is no fluctuance. There is some edema of the left lower extremity. Pedal pulses are equal bilaterally. Test Results: CBC shows a mild anemia with a hemoglobin 11.0 and hematocrit 34.4. This was improved compared to prior results. Metabolic profile was essentially within normal limits. CRP was elevated at 72.9. Sed rate was also elevated at 39. X-rays of the left hip were obtained. There is no evidence of osteomyelitis or involvement of the hip joint or bone. Emergency Department Course and Treatment: Patient was given morphine. Patient was started on Zosyn and vancomycin. Case was discussed with Dr. Lopez from [facility]. Patient will be transferred there for further evaluatio n. Patient understood and was agreeable with the plan. All questions were answered. Disposition: Transfer to [facility] Impression: Postoperative wound infection This note was generated with [employer] dictation software. It may contain incorrect words, spelling, and punctuation that were not noted in review of the chart prior to signing ED Disposition - Plan for ED Patient: Disposition: Acute Care Hospital - Other Diagnosis: Postoperative wound infection Referrals: Daija Douglas MD [Primary Care Provider] -
[2019-10-16 17:35] LABS: Absolute Lymphocyte Count 0.89 X10^3/uL (0.83-4.51); Absolute Neutrophil Count 6.5 X10^3/uL (2.0-7.7); Basophil# 0.06 X10^3/uL; Basophil% 0.7 % (0-1); Eosinophil# 0.06 X10^3/uL; Eosinophils% 0.7 % (0-5); Hematocrit 34.4 % (40-54); Lymphocyte # 0.89 X10^3/ul (4.0); Lymphocyte % 10.7 % (19-41); Mean Corpuscular Hgb 30.1 pg (27.0-32.0); Mean Platelet Vol. 9.3 fl (6.2-12.0); Monocyte# 0.76 X10^3/uL; Monocyte% 9.1 % (0-10); NRBC Flagged by Analyzer 0 % (0-5); Neutrophil # 6.46 X10^3/uL (2.7-7.7); Neutrophil % 77.7 % (47-70); Platelet Count 391 K/mm3 (150-450); RBC Distribution Width CV 16.5 % (11.6-14.6); RBC Distribution Width SD 51.6 fl (35.1-43.9); Red Blood Count 3.66 M/mm3 (4.6-6.2); White Blood Count 8.3 K/mm3 (4.4-11.0)
[2019-10-16] MEDS: 0.9% Normal Saline 1,000 ML 1000 ML IV (17:39)
[2019-10-16 17:50] LABS: ALB/GLOB Ratio 0.8 RATIO (0.9-2.4); AST(SGOT) 86 U/L (15-37); Alanine Aminotransfer ALT/SGPT 94 U/L (16-61); Albumin, Serum 3.2 g/dL (3.2-5.0); Alkaline Phosphatase 72 U/L (45-117); Anion Gap 8 (5-15); BUN 20 mg/dL (7-18); BUN/Creat Ratio 24.4 RATIO (10-20); Calcium,Total 8.8 mg/dL (8.5-10.1); Chloride 100 mmol/L (98-107); Creatinine, Serum 0.82 mg/dL (0.70-1.30); EST Glomerular Filtration Rate 99 mL/min (>60); Erythrocyte Sedimentation Rate 39 mm/hr (0-20); Est Glom Filt Rate - Afr Amer 119 mL/min (>60); Glucose 99 mg/dL (74-106); Potassium 3.5 mmol/L (3.5-5.1); Protein, Total 7.2 g/dL (6.4-8.2); Sodium Level 134 mmol/L (136-145)
--- NOTE | 2019-10-16 17:51 | RAD_ITS ---
STUDY: X-RAY - PELVIS AND LEFT HIP REASON FOR EXAM: Male, 69 years old. LEFT HIP PAIN. TECHNIQUE: 3 views of the pelvis and hip. COMPARISON: None. FINDINGS: There is a non-specific bowel gas pattern. Normal visualized soft tissue structures. Bilateral iliac artery stents are stable. Stable bone island in the right posterior iliac crest. Normal bilateral iliac wings, sacroiliac joints and visualized sacrum. Normal bilateral superior and inferior pubic rami. Normal pubic symphysis. Normal bilateral ischial tuberosities. Normal visualized femoral head. Normal acetabulum. Normal hip joint. RAD/HIP, UNI W/ Pelvis 2-3 Views IMPRESSION: No change or acute abnormality. Electronically Signed: Thomas Hutton MD at 18:24 EDT , Service support ,
[2019-10-16] MEDS: Morphine 4 MG/ML Syringe IV (19:11)
[2019-10-16] MEDS: Vancomycin IV 1,000 MG/200 ML BAG 200 MG IV (21:47)
[2019-10-17 00:04] VITALS: BP 142/71; PULSE 81; RESP 20; TEMP 36.9; O2SAT 91
== END 2019-10-17 00:07 | disposition short-term general hospital (02) ==
PROVIDERS: Emergency Provider Emergency Medicine; PCP Internal Medicine
DX: T81.41XA Infection following a procedure, superficial incisional surgical site, initial encounter (principal); R06.02 Shortness of breath; J44.9 Chronic obstructive pulmonary disease, unspecified; Z79.01 Long term (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 of anticoagulants
CPT/HCPCS: 36415; 73502; 80053; 85025; 85652; 86140; 87040; 87070; 87075; 87077; 87186; 87205; 96361; 96365; 96367; 99285; J7030; A4216

== ENCOUNTER 2019-10-25 22:37 | Inpatient (IN) | payer MEDICARE, MEDICAID, SELFPAY ==
[2019-10-16 16:25] VITALS: BMI 24.0
--- NOTE | 2019-10-25 22:46 | PCM.HP.STD ---
Problem List (1) Debility Status: Acute (2) Deep incisional surgical site infection Status: Acute (3) Lupus anticoagulant disorder Status: Chronic (4) Coronary artery disease Status: Chronic (5) Chronic obstructive pulmonary disease Status: Chronic (6) Diabetes mellitus Status: Chronic (7) Seizure disorder Status: Chronic (8) Peripheral arterial occlusive disease Status: Chronic (9) Asthma Status: Chronic (10) Hyperlipidemia Status: Chronic (11) Obstructive sleep apnea Status: Chronic (12) Hypertension Status: Chronic History of Present Illness Date of Admission: 10/25/19 Chief Complaint: Here for rehabilitation, strengthening, prior to discharge home alone. The patient is a 69 year old Male with below past medical history with followin10/08/2019 [facility]: Left common femoral endarterectomy with bovine patch, redo. Thrombectomy of the occluded left RADHA, EIA. Left common and External iliac stents (Cast x 2), Jessica x 2 from origin of RADHA to groin. 10/10/2019 Hematoma evacuation, left EIA to [employer] bypass with 7mm ringed PTFE retrograde open RADHA angioplasty, open thrombectomy of left iliac artery with extraction of previously placed stent that was crushed, thrombosed. 10/14/2019 Discharge to home from [facility]. 10/16/2019 Presented to Emergency Department with possible surgical site infection. 10/16/2019 X-ray pelvis, left hip negative for acute event. Yellow, white discharge from wound. Subjective fevers. Occasional shortness of breath, nausea, no vomiting. Hemoglobin 11.0, Hematocrit 34.4, CMP okay. C reactive protein 72.9, Erythrocyte sedimentation rate 39. Zosyn, Vancomycin, Morphine given. Transfer to [facility]. 10/17/2019 Admit to [facility]. 10/17/2019 Obvious left groin wound infection with graft involvement. IV antibiotics, imaging, OR for exploration, possible debridement. 10/18/2019 Left groin wound debridement with placement of sartorius flap. 10/20/2019 Wound VAC left iliac artery graft. Pain controlled with Tylenol, Oxycodone, Dilaudid. Tolerating Diet. 10/21/2019 Infectious Disease noted CTA showed retroperitoneal hematoma. Wound culture growing Klebsiella Pneumoniae. Received 5 days Vancomycin, Zosyn. Stop Vancomycin. Continue Zosyn IV 4 weeks postop, need PICC line. 10/24/2019 Plavix, coumadin, heparin drip for lupus anticoagulant disorder. 10/25/2019 Admit to TCU with debility, here for rehabilitation, strengthening, prior to discharge home alone. Past Medical History Past Medical History (Chronic Problems): Chronic Problems Lupus anticoagulant disorder (Chronic) Coronary artery disease (Chronic) Chronic obstructive pulmonary disease (Chronic) Diabetes mellitus (Chronic) Seizure disorder (Chronic) Peripheral arterial occlusive disease (Chronic) Asthma (Chronic) Hyperlipidemia (Chronic) Obstructive sleep apnea (Chronic) Peripheral vascular disease (Chronic) Status post stent Anxiety (Chronic) COPD (chronic obstructive pulmonary disease) with emphysema (Chronic) Hypertension (Chronic) Chronically on opiate therapy (Chronic) Chronic use of fentanyl patch 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 (Chronic) On warfarin BPH (benign prostatic hyperplasia) (Chronic) Chronic tamsulosin and finasteride Ulcerative colitis (Chronic) Chronic sulfasalazine, Bentyl Tobacco abuse (Chronic) Allergies No Known Allergies Allergy (Verified 10/16/19 16:30) Home Medications: Ambulatory Orders Medication Instructions Recorded Albuterol Inhaler [Ventolin Hfa] 2 puff INHALATION Q4H PRN PRN 01/26/14 Gabapentin [Neurontin] 300 mg PO 0900,1600 01/26/14 Tamsulosin HCl [Flomax] 0.4 mg PO QHS 01/26/14 Pantoprazole Sodium [Protonix] 40 mg PO DAILY 09/08/14 Finasteride [Proscar] 5 mg PO DAILY 11/14/14 Atorvastatin Calcium [Lipitor] 40 mg PO QHS 09/23/15 Metoprolol Tartrate [Lopressor 25 mg PO BID 12/02/15 (beta joel)] Sertraline HCl [Zoloft] 100 mg PO DAILY 12/02/15 Enoxaparin [Lovenox] 80 mg SUBCUT Q12@0600,1800 08/16/19 Lidocaine 4% Topical 2 patch SQ DAILY 08/16/19 Mirtazapine [Remeron] 15 mg PO QHS 08/16/19 Nicotine Patch 21 mg SQ DAILY 08/16/19 Acetaminophen [Acetaminophen Extra 1,000 mg PO Q6H 10/25/19 Strength] Amlodipine [Norvasc] 5 mg PO DAILY 10/25/19 Benzonatate [Tessalon Perle] 100 mg PO TID PRN PRN 10/25/19 Clopidogrel Bisulfate [Plavix] 75 mg PO DAILY 10/25/19 Fluticasone/Umeclidin/Vilanter 1 puff INHALATION DAILY 10/25/19 [Trelegy Ellipta 100-62.5-25] Gabapentin [Neurontin] 600 mg PO QHS 10/25/19 Guaifenesin/Dextromethorphan 5 ml PO Q4H PRN 10/25/19 [Guaifenesin-Dm 100-10 mg/5 ml] Ipratropium/Albuterol Sulfate 3 ml INHALATION Q6H.RT PRN 10/25/19 [Duoneb] Oxycodone [Oxyir] 5 mg PO Q6H PRN PRN 10/25/19 Tizanidine HCl 2 mg PO Q8H PRN 10/25/19 hydrOXYzine tablet [Atarax tablet] 50 mg PO TID PRN 10/25/19 Albuterol Aerosols [Ventolin 2.5 mg INHALATION Q6H PRN PRN 10/26/19 Aerosols] Carbamazepine [Tegretol] 200 mg PO Q12H 10/26/19 Dicyclomine HCl [Bentyl] 20 mg PO TIDAC 10/26/19 Surgical History: angioplasty - Multiple lower extremity stents., appendectomy, cholecystectomy, herniorrhaphy - Right inguinal., - - Amputation left thumb, Right Carpal tunnel surgery. Surgery on right eye at age 18, Hemorrhoidectomy, left wrist fracture. Psychiatric History: Anxiety, Depression, - - Panic disorder. Lives: Alone Smoking Status: Current every day smoker Tobacco Use: Cigarettes Alcohol: Sober Drugs: None - *Family History Paternal History Items: No pertinent history Maternal History Items: No pertinent history Review of Systems Constitutional: Denies: Chills, Fever, Weight Change HEENT: Denies: Head Aches, Sinus Congestion, Sinus Drainage Cardiovascular: Denies: Chest Pain, Palpitations Respiratory: Denies: Cough, Shortness of breath at rest, Sputum production Gastrointestinal: Denies: Abdominal Pain, Nausea, Vomiting Genitourinary: Denies: Dysuria Musculoskeletal: Denies: Joint Pain, Joint Tenderness Skin: Denies: Rash, Wounds Neurological: Denies: Numbness, Tingling, Focal weakness Psychiatric: Denies: Anxiety, Depression, Homicidal Ideations, Suicidal Ideations Hematologic/ Lymphatic: Denies: Easy Bruising, Easy Bleeding VTE Information - Inpt Only VTE Present on Admission: No VTE Mechan Device Prophylaxis: Knee High RENAE Hose VTE Pharm Prophylaxis ordered?: Yes Patient Problems: Active and Suspected Problems Debility (Acute) Deep incisional surgical site infection (Acute) - Physical Exam Vitals/I&O's: Body Mass Index (BMI) 24.0 Finger Stick Blood Glucose 85 General: Alert, Oriented x3, Cooperative HEENT: Atraumatic, PERRLA, EOMI, Normocephalic Neck: Supple, No JVD, Negative Carotid Bruits Lungs: Clear to auscultation, Normal air movement Cardiovascular: Regular rate, No murmurs Abdomen: Bowel Sounds Present, Soft, Non Tender Extremities: No edema, Capillary Refill Less than 3 Seconds, - - Right upper extremity PICC line. Skin: No rashes, Ulcer/ Wound - Left groin wound, wound VAC applied. Musculoskeletal: No Tenderness to Palpation of Joints or Extremities Neurological: Cranial nerves II-XII grossly intact Psych/Mental Status: Normal Affect, Appropriate Assessment/Plan All Active Problems Debility (Acute) Deep incisional surgical site infection (Acute) Lower GI bleed (Acute) Failure to thrive (Acute) Pneumothorax (Acute) Supratherapeutic INR (Acute) Acute on chronic respiratory failure with hypoxemia (Acute) Acute exacerbation of chronic obstructive pulmonary disease (COPD) (Acute) GI bleed (Acute) Acute blood loss anemia (Acute) The administrative codes within the [employer] content you are accessing may have as of 03/19/2013. Please contact your IT Dept/Help Desk and request the latest Regulatory release be installed. IT Dept/Help Desk- Please refer to our FAQ page ([email or web address] or contact [employer] Customer Support at [email or web address] (Resolved) 69 year old male with below past medical history hospitalized for left groin surgical wound infection, underwent debridement with placement sartorius flap, admitted to TCU with debility, here for rehabilitation, strengthening, prison intravenous antibiotics, prior to discharge home alone. Debility - PT/OT. Pain - Tylenol 1000MG Q6H, Oxycodone 5MG Q6H PRN pain (4-10), Lidoderm 2 patches TD daily, Lidocaine 2% jelly topical Q6H PRN dressing changes. Bowel - Miralax 17GM daily, Senna/colace 2 tablets BID, Dulcolax 10MG daily PRN. Adult immunization - Administer Prevnar 13, Pneumovax 23, Fluzone as appropriate. DVT prophylaxis - Not necessary, already anticoagulated. COPD - Trelegy 1 puff daily (formulary equivalent), Duoneb 3ML Q6H PRN, Albuterol 2.5MG Q6H. Hypertension - Metoprolol 25MG BID, Amlodipine 5MG daily. Hyperlipidemia - Atorvastatin 40MG QHS. Cough - Tessalon perles 100MG TID PRN, Robitussin DM 5ML Q4H PRN. Seizure disorder - Carbamazepine 200MG Q12H. PAOD - Plavix 75MG daily, oral anticoagulation. IBS - Bentyl 20MG TIDAC. Lupus anticoagulant - Lovenox 80MG BID bridge, warfarin 5MG daily, monitor INR, stop Lovenox when INR 2-3. BPH - Finasteride 5MG daily, Tamsulosin 0.4MG QHS. Neuropathic pain - Gabapentin 300MG BID, 600MG QHS. Nutrition - Glucerna 120ML 4x/day. Pruritus - Hydroxyzine 50MG TID PRN. Coronary Artery Disease - Metoprolol 25MG BID, Plavix 75MG daily. Depression/insomnia/appetite loss - Mirtazapine 15MG QHS. Tobacco Abuse - Nicotine patch 21MG daily. GERD - Pantoprazole 40MG daily. Left groin infection - Zosyn 3.375GM IV Q8H thru 11/16/2019. Depression - Sertraline 100MG daily. Muscle spasm - Tizanidine 2MG Q8H PRN.
[2019-10-25 22:47] VITALS: BP 171/69; PULSE 70; RESP 18; TEMP 36.1; O2SAT 95
[2019-10-26 00:57] VITALS: BMI 25.1
[2019-10-26 01:02] VITALS: BMI 25.2
[2019-10-26] MEDS: Lidocaine 2% Jelly 1 APPLIC Tube TOPICAL (01:18)
[2019-10-26] MEDS: Piperacil/Tazobactam 3.375 GM Q8 PREMIX IV ×4 (01:21→21:50)
[2019-10-26] MEDS: 0.9% Saline Lock 10 ML Syringe IV ×2 (01:31→21:50)
[2019-10-26] MEDS: Enoxaparin 80 MG/0.8 ML Syringe SC ×2 (05:45→17:53)
[2019-10-26] MEDS: Sertraline 100 MG Tablet PO (05:45)
[2019-10-26] MEDS: Lidocaine 5% Patch 2 PATCH TOPICAL (05:45)
[2019-10-26] MEDS: Clopidogrel Bisulfate 75 MG Tablet PO (05:45)
[2019-10-26 05:46] VITALS: BP 134/62; PULSE 76
[2019-10-26] MEDS: Metoprolol Tartrate 25 MG Tablet PO ×2 (05:46→17:50)
[2019-10-26] MEDS: Dicyclomine 10 MG Capsule 20 MG PO ×3 (05:46→16:10)
[2019-10-26] MEDS: amLODIPine 5 MG Tablet PO (05:47)
[2019-10-26] MEDS: Pantoprazole Sodium 40 MG Tablet PO (05:48)
[2019-10-26] MEDS: carBAMazepine 200 MG Tablet PO ×2 (05:49→17:52)
[2019-10-26] MEDS: Finasteride 5 MG Tablet PO (05:49)
[2019-10-26] MEDS: Glucerna Shake 120 ML LIQUID PO ×4 (05:51→21:49)
[2019-10-26] MEDS: Acetaminophen 500 MG Tablet 1000 MG PO ×3 (05:51→17:49)
[2019-10-26] MEDS: oxyCODONE 5 MG Tablet PO ×3 (06:07→16:09)
[2019-10-26 06:09] LABS: Absolute Lymphocyte Count 1.69 X10^3/uL (0.83-4.51); Absolute Neutrophil Count 5.6 X10^3/uL (2.0-7.7); Basophil% 1.2 % (0-1); Eosinophil# 0.28 X10^3/uL; Eosinophils% 3.3 % (0-5); Hematocrit 32.6 % (40-54); Hemoglobin 10.1 g/dL (13.0-16.5); Lymphocyte # 1.69 X10^3/ul (4.0); Lymphocyte % 20.2 % (19-41); Mean Corpuscular Hgb 29.9 pg (27.0-32.0); Mean Corpuscular Volume 96.4 fL (80-94); Mean Platelet Vol. 9.1 fl (6.2-12.0); Monocyte# 0.68 X10^3/uL; Monocyte% 8.1 % (0-10); NRBC Flagged by Analyzer 0 % (0-5); Neutrophil # 5.56 X10^3/uL (2.7-7.7); Neutrophil % 66.6 % (47-70); Platelet Count 631 K/mm3 (150-450); RBC Distribution Width CV 16.2 % (11.6-14.6); RBC Distribution Width SD 56.9 fl (35.1-43.9); Red Blood Count 3.38 M/mm3 (4.6-6.2); White Blood Count 8.4 K/mm3 (4.4-11.0)
[2019-10-26 06:24] LABS: Anion Gap 7 (5-15); BUN 19 mg/dL (7-18); BUN/Creat Ratio 23.9 RATIO (10-20); Calcium,Total 8.8 mg/dL (8.5-10.1); Chloride 105 mmol/L (98-107); EST Glomerular Filtration Rate 102 mL/min (>60); Est Glom Filt Rate - Afr Amer 124 mL/min (>60); Estimated Creatinine Clearance 83.13 ml/min; Glucose 103 mg/dL (74-106); Sodium Level 140 mmol/L (136-145)
[2019-10-26] MEDS: Gabapentin 300 MG Capsule PO ×2 (08:10→15:13)
[2019-10-26 08:57] LABS: International Normalized Ratio 1.7; Prothrombin Time (Protime)PT. 19.1 SECONDS (11.7-14.9)
--- NOTE | 2019-10-26 11:36 | NURSING ---
Resident complained about pain medicine given every 6 hours and he is used to receiving it every [address] Joseph and given new order for Oxycodone 5mg every 4 hours as needed for pain.
[2019-10-26] MEDS: Tuberculin,Purif.prot.deriv. 50 TU/ML Vial 5 ML ID (11:52)
--- NOTE | 2019-10-26 13:13 | NURSING ---
Called [facility] per patient's request. Left message in lost and found letting them know pt's cane was left in his room.
[2019-10-26 13:59] VITALS: BP 132/60; PULSE 76; RESP 16; TEMP 36.7; O2SAT 94
[2019-10-26 17:50] VITALS: PULSE 76
[2019-10-26] MEDS: Atorvastatin Calcium 40 MG Tablet PO (21:47)
[2019-10-26] MEDS: Tamsulosin HCl 0.4 MG Capsule PO (21:47)
[2019-10-26] MEDS: Gabapentin 300 MG Capsule 600 MG PO (21:47)
[2019-10-26] MEDS: Mirtazapine 15 MG Tablet PO (21:49)
--- NOTE | 2019-10-26 23:02 | PCA ---
RUG DRYING MACHINE OPERATOR offered HS care and patient refused. Was approached several other times by both Tamika SIMMONS and Nurse Sonali. Did not want to get washed tonight.
[2019-10-27 05:57] LABS: International Normalized Ratio 1.6; Prothrombin Time (Protime)PT. 18.4 SECONDS (11.7-14.9)
[2019-10-27 06:31] VITALS: BP 135/57; PULSE 75
[2019-10-27] MEDS: Metoprolol Tartrate 25 MG Tablet PO ×2 (06:31→17:30)
[2019-10-27] MEDS: Finasteride 5 MG Tablet PO (06:31)
[2019-10-27] MEDS: Enoxaparin 80 MG/0.8 ML Syringe SC ×2 (06:31→17:31)
[2019-10-27] MEDS: Pantoprazole Sodium 40 MG Tablet PO (06:31)
[2019-10-27] MEDS: Clopidogrel Bisulfate 75 MG Tablet PO (06:31)
[2019-10-27] MEDS: amLODIPine 5 MG Tablet PO (06:31)
[2019-10-27] MEDS: Dicyclomine 10 MG Capsule 20 MG PO ×3 (06:31→17:32)
[2019-10-27] MEDS: Sertraline 100 MG Tablet PO (06:31)
[2019-10-27] MEDS: carBAMazepine 200 MG Tablet PO ×2 (06:31→17:30)
[2019-10-27] MEDS: Lidocaine 5% Patch 2 PATCH TOPICAL (06:34)
[2019-10-27] MEDS: 0.9% Saline Lock 10 ML Syringe IV (06:37)
[2019-10-27] MEDS: Piperacil/Tazobactam 3.375 GM Q8 PREMIX IV ×3 (06:37→21:26)
[2019-10-27] MEDS: Glucerna Shake 120 ML LIQUID PO ×4 (06:46→21:26)
[2019-10-27] MEDS: Acetaminophen 500 MG Tablet 1000 MG PO ×3 (06:49→17:37)
[2019-10-27] MEDS: Gabapentin 300 MG Capsule PO ×2 (08:10→17:31)
[2019-10-27 10:00] VITALS: PULSE 65; RESP 16
--- NOTE | 2019-10-27 10:24 | NURSING ---
Spoke with POA and provided update.
[2019-10-27 11:05] VITALS: O2SAT 90
[2019-10-27 15:21] VITALS: BP 142/78; PULSE 74; RESP 16; TEMP 36.6; O2SAT 95
[2019-10-27 17:30] VITALS: PULSE 74
[2019-10-27] MEDS: oxyCODONE 5 MG Tablet PO ×2 (17:37→21:42)
[2019-10-27] MEDS: Tamsulosin HCl 0.4 MG Capsule PO (21:27)
[2019-10-27] MEDS: Atorvastatin Calcium 40 MG Tablet PO (21:28)
[2019-10-27] MEDS: Mirtazapine 15 MG Tablet PO (21:38)
[2019-10-27] MEDS: Gabapentin 300 MG Capsule 600 MG PO (21:38)
--- NOTE | 2019-10-28 02:15 | NURSING ---
Pt resting in bed on rt side, eyes closed, appears to be sleeping.
[2019-10-28 05:47] LABS: International Normalized Ratio 1.6; Prothrombin Time (Protime)PT. 18.2 SECONDS (11.7-14.9)
[2019-10-28] MEDS: Glucerna Shake 120 ML LIQUID PO ×4 (06:05→21:41)
[2019-10-28] MEDS: Clopidogrel Bisulfate 75 MG Tablet PO (06:05)
[2019-10-28] MEDS: oxyCODONE 5 MG Tablet PO ×4 (06:05→21:41)
[2019-10-28 06:06] VITALS: BP 117/59; PULSE 78
[2019-10-28] MEDS: Dicyclomine 10 MG Capsule 20 MG PO ×3 (06:06→15:53)
[2019-10-28] MEDS: Enoxaparin 80 MG/0.8 ML Syringe SC ×2 (06:06→18:50)
[2019-10-28] MEDS: Metoprolol Tartrate 25 MG Tablet PO ×2 (06:06→18:46)
[2019-10-28] MEDS: Finasteride 5 MG Tablet PO (06:07)
[2019-10-28] MEDS: amLODIPine 5 MG Tablet PO (06:07)
[2019-10-28] MEDS: Pantoprazole Sodium 40 MG Tablet PO (06:07)
[2019-10-28] MEDS: Lidocaine 5% Patch 2 PATCH TOPICAL (06:09)
[2019-10-28] MEDS: carBAMazepine 200 MG Tablet PO ×2 (06:09→18:49)
[2019-10-28] MEDS: Sertraline 100 MG Tablet PO (06:09)
[2019-10-28] MEDS: Piperacil/Tazobactam 3.375 GM Q8 PREMIX IV (06:14)
[2019-10-28] MEDS: Acetaminophen 500 MG Tablet 1000 MG PO ×3 (06:16→18:49)
[2019-10-28 06:42] VITALS: O2SAT 92
[2019-10-28] MEDS: Gabapentin 300 MG Capsule PO ×2 (08:30→15:53)
--- NOTE | 2019-10-28 11:45 | PCM.PN.RX ---
<Shanell Pearl - Last Filed: 10/28/19 13:59> Progress Note - Pharmacy Subjective: TCU Admission Objective: Allergies No Known Allergies Allergy (Verified 10/16/19 16:30) Current Medications Generic Name Dose Route Start Last Admin Trade Name Freq PRN Reason Stop Dose Admin Acetaminophen 1,000 mg 10/26/19 00:15 10/28/19 06:16 Tylenol PO 1,000 mg Q6H LEON Administration Albuterol Sulfate 2.5 mg 10/26/19 00:05 Ventolin Aerosols INHALATION Q6H PRN PRN Wheezing/Shortness of Breath Albuterol/Ipratropium 3 ml 10/26/19 00:05 Duoneb INHALATION Q6H.RT PRN WHEEZING Amlodipine Besylate 5 mg 10/26/19 06:00 10/28/19 06:07 Norvasc PO 5 mg DAILY LEON Administration Atorvastatin Calcium 40 mg 10/26/19 22:00 10/27/19 21:28 Lipitor PO 40 mg QHS LEON Administration Benzonatate 100 mg 10/26/19 00:05 Tessalon Perle PO TID PRN PRN COUGH Carbamazepine 200 mg 10/26/19 06:00 10/28/19 06:09 Tegretol PO 200 mg Q12 LEON Administration Clopidogrel Bisulfate 75 mg 10/26/19 06:00 10/28/19 06:05 Plavix PO 75 mg DAILY LEON Administration Dicyclomine HCl 20 mg 10/26/19 06:45 10/28/19 06:06 Bentyl PO 20 mg TIDAC LEON Administration Enoxaparin Sodium 80 mg 10/26/19 06:00 10/28/19 06:06 Lovenox SC 80 mg Q12@0600,1800 LEON Administration Finasteride 5 mg 10/26/19 06:00 10/28/19 06:07 Proscar PO 5 mg DAILY LEON Administration Gabapentin 300 mg 10/26/19 09:00 10/28/19 08:30 Neurontin PO 300 mg 0900,1600 LEON Administration Gabapentin 600 mg 10/26/19 22:00 10/27/19 21:38 Neurontin PO 600 mg QHS LEON Administration Guaifenesin 5 ml 10/26/19 00:17 Robitussin Dm PO Q4H PRN PRN Heparin Sodium (Beef Lung) 50 units 10/25/19 23:04 IV UD PRN PICC Line Heparin Flush Hydroxyzine HCl 50 mg 10/26/19 00:05 Atarax Tablet PO TID PRN PRN ITCHING Sodium Chloride 250 mls @ 15 mls/hr 10/25/19 23:05 10/27/19 06:37 IV 0 mls/hr .[id number] PRN Infusion Saline Flush Sodium Chloride 250 mls @ 15 mls/hr 10/25/19 23:05 IV .[id number] PRN Additional IVPB Infusion Piperacillin Sod/Tazobactam 50 mls @ 12.5 mls/hr 10/28/19 14:00 Sod 3.375 gm/ Sodium Chloride IV 11/16/19 23:59 Q8 LEON Lidocaine 2 patch 10/26/19 06:00 10/28/19 06:09 Lidoderm Patch TOPICAL 2 patch DAILY LEON Administration Lidocaine HCl 1 applic 10/26/19 00:10 10/26/19 01:18 Xylocaine 2% Jelly TOPICAL 1 applic Q6H PRN PRN Administration Pain Score 1-1010 Protocol Metoprolol Tartrate 25 mg 10/26/19 06:00 10/28/19 06:06 Lopressor (Beta [place]) PO 25 mg BID LEON Administration Mirtazapine 15 mg 10/26/19 22:00 10/27/19 21:38 Remeron PO 15 mg QHS LEON Administration Nicotine 21 mg 10/26/19 06:00 10/28/19 06:07 Nicoderm Cq (Pbkc) TRANSDERM. 21 mg DAILY LEON Administration Non-Formulary Medication 1 puff 10/26/19 06:00 Fluticasone/Umeclidin/Vilanter [Trelegy Ellipta 100-62.5-25] IH DAILY LEON Nutritional Formula (Lactose Free) 120 ml 10/26/19 06:00 10/28/19 06:05 Glucerna Shake PO 120 ml 4X/DAY LEON Administration Oxycodone HCl 5 mg 10/26/19 11:36 10/28/19 06:05 Oxyir PO 5 mg Q4H PRN PRN Administration Pain Score 4-10/10 Pantoprazole Sodium 40 mg 10/26/19 06:00 10/28/19 06:07 Protonix PO 40 mg DAILY LEON Administration Sertraline HCl 100 mg 10/26/19 06:00 10/28/19 06:09 Zoloft PO 100 mg DAILY LEON Administration Sodium Chloride 10 - 40 ml 10/25/19 23:04 10/27/19 06:37 IV 10 ml UD PRN Administration Open End PICC Flush Sodium Chloride 10 - 40 ml 10/25/19 23:04 0.9% Nacl (Sterile) Posiflush IV UD PRN Port access or dressing change Tamsulosin HCl 0.4 mg 10/26/19 22:00 10/27/19 21:27 Flomax PO 0.4 mg QHS LEON Administration Tizanidine HCl 2 mg 10/26/19 00:05 Zanaflex PO Q8H PRN PRN Muscle Spasms Tuberculin PPD 5 tu 11/02/19 10:00 Tubersol, Aplisol, Ppd ID 11/02/19 10:01 X1 ONE Warfarin Sodium 6 mg 10/28/19 17:00 Coumadin (Pbkc) PO DAILY@1700 [facility] Problem List Debility (Acute) Deep incisional surgical site infection (Acute) Lupus anticoagulant disorder (Chronic) Coronary artery disease (Chronic) Chronic obstructive pulmonary disease (Chronic) Diabetes mellitus (Chronic) Seizure disorder (Chronic) Peripheral arterial occlusive disease (Chronic) Asthma (Chronic) Hyperlipidemia (Chronic) Obstructive sleep apnea (Chronic) Vital Signs Temp Pulse Resp BP Pulse Ox 97.9 F 78 16 117/59 L 92 10/27/19 15:21 10/28/19 06:06 10/27/19 15:21 10/28/19 06:06 10/28/19 06:42 Oxygen Flow Rate (L/min) 2 Oxygen Delivery Method Room Air Weight: 75.041 kg Body Mass Index (BMI) 25.1 Finger Stick Blood Glucose 85 Sodium 140 mmol/L (136-145) 10/26/19 06:00 Potassium 4.0 mmol/L (3.5-5.1) 10/26/19 06:00 Chloride 105 mmol/L (98-107) 10/26/19 06:00 Carbon Dioxide 28.0 mmol/L (21.0-32.0) 10/26/19 06:00 Anion Gap 7 (5-15) 10/26/19 06:00 BUN 19 mg/dL (7-18) H 10/26/19 06:00 Creatinine 0.80 mg/dL (0.70-1.30) 10/26/19 06:00 Est GFR (MDRD) Af Amer 124 mL/min (>60) 10/26/19 06:00 Est GFR (MDRD) Non-Af 102 mL/min (>60) 10/26/19 06:00 BUN/Creatinine Ratio 23.9 RATIO (10-20) H 10/26/19 06:00 Glucose 103 mg/dL (74-106) 10/26/19 06:00 Assessment/Plan: 1. Pain: acetaminophen 1000mg PO Q6H, oxycodone 5mg PO Q4H PRN pain 4-1010, lidocaine 5% patch 2 patches transdermally daily, lidocaine 2% jelly topically Q6H PRN dressing changes. Please continue to monitor for S/S of respiratory depression and constipation. 2. Left groin infection: piperacillin/tazobactam 3.375mg IV Q8H thru 11/16/2019. Please continue to monitor renal function and for S/S of worsening infection. *3. COPD: Fluticasone/salmeterol 232/14mcg inhaler 1 puff BID, umeclidinium inhaler 1 puff daily, albuterol nebulized solution 2.5mg inhalation Q6H PRN wheezing/SOB, ipratropium/albuterol 3mL inhalation Q6H PRN wheezing. Please add if albuterol or ipratropium/albuterol should be used 1st line vs. second line for shortness of breath. Thanks. Please continue to monitor for SOB, wheezing, dry mouth, dry eyes and thrush. Please swish and spit water after fluticasone/salmeterol uses. 4. Hypertension/CAD/PAOD: metoprolol tartrate 25mg PO BID, amlodipine 5mg PO daily, clopidogrel 75mg PO daily. Please continue to monitor BP, HR, edema and S/S of bleeding. *5. Hyperlipidemia: atorvastatin 40mg PO QHS. The last lipid panel is from 2014. Please consider ordering one now and then annually as clinically appropriate. Thanks. Please continue to monitor for muscle pain. 6. Lupus anticoagulant: enoxaparin 80mg SC BID (bridge) and warfarin 6mg PO daily@1700. INR 10/27 is 1.6. Please see physician note regarding D/C of bridge. Please continue to monitor INR, platelets, and S/S of bleeding. 7. Seizure disorder: carbamazepine 200mg PO Q12H. Please continue to monitor for S/S of seizures, rash and platelets. 8. IBS: dicyclomine 20mg PO TIDAC. Please continue to monitor for S/S of IBS, dry mouth, and dry eyes. 9. BPH: finasteride 5mg PO daily and tamsulosin 0.4mg PO QHS. Please continue to monitor for hypotension and urinary retention/flow. 10. Neuropathic pain: gabapentin 300mg PO BID and 600mg PO QHS. Please continue to monitor renal function and for falls. 11. GERD: pantoprazole 40mg PO daily. Please continue to monitor for S/S of GERD. 12. Muscle spasm: tizanidine 2mg PO Q8H PRN muscle spams. Please continue to monitor for muscle spasms and PRN usage. 13. Pruritus: hydroxyzine 50mg PO TID PRN itching. Please continue to monitor for itching and PRN usage. *14. Tobacco abuse: nicotine 21mg patch transdermally daily. Please continue to monitor for nicotine cravings and consider adding 4mg gum PRN if patient begins to have nicotine cravings. *15. Cough: benzonatate 100mg PO TID PRN cough and guaifenesin DM 5mL Q4H PRN. Please add PRN reason for guaifenesin and if it being used for cough, please add which agent should be used first line and which should be used second line. Thanks. Please continue to monitor for cough and PRN usage. Psychotropic Medications: 1. Depression: sertraline 100mg PO daily. Please consider GDR by 04/2020. 2. Depression/insomnia/appetite loss: mirtazapine 15mg PO QHS. No self propelled mining machine operator note at the time of writing this note to assess appetite. GDR not indicated if patient's appetite is still poor. Unnecessary Medications: None *Bowel Regimen: None, please consider adding bowel regimen if clinically indicated. Patient has been receiving oxycodone. Date of Note:: 10/28/19 - Provider Comments Provider responsibility: Provider responsible to enter orders to implement recommendations <Keith Joseph Chi - Last Filed: 10/28/19 16:49> Progress Note - Pharmacy Subjective: [] Objective: Allergies No Known Allergies Allergy (Verified 10/16/19 16:30) Current Medications Generic Name Dose Route Start Last Admin Trade Name Freq PRN Reason Stop Dose Admin Acetaminophen 1,000 mg 10/26/19 00:15 10/28/19 11:47 Tylenol PO 1,000 mg Q6H LEON Administration Albuterol Sulfate 2.5 mg 10/26/19 00:05 Ventolin Aerosols INHALATION Q6H PRN PRN Wheezing/Shortness of Breath Albuterol/Ipratropium 3 ml 10/26/19 00:05 Duoneb INHALATION Q6H.RT PRN WHEEZING Amlodipine Besylate 5 mg 10/26/19 06:00 10/28/19 06:07 Norvasc PO 5 mg DAILY LEON Administration Atorvastatin Calcium 40 mg 10/26/19 22:00 10/27/19 21:28 Lipitor PO 40 mg QHS LEON Administration Benzonatate 100 mg 10/26/19 00:05 Tessalon Perle PO TID PRN PRN COUGH Carbamazepine 200 mg 10/26/19 06:00 10/28/19 06:09 Tegretol PO 200 mg Q12 LEON Administration Clopidogrel Bisulfate 75 mg 10/26/19 06:00 10/28/19 06:05 Plavix PO 75 mg DAILY LEON Administration Dicyclomine HCl 20 mg 10/26/19 06:45 10/28/19 15:53 Bentyl PO 20 mg TIDAC LEON Administration Enoxaparin Sodium 80 mg 10/26/19 06:00 10/28/19 06:06 Lovenox SC 80 mg Q12@0600,1800 LEON Administration Finasteride 5 mg 10/26/19 06:00 10/28/19 06:07 Proscar PO 5 mg DAILY LEON Administration Gabapentin 300 mg 10/26/19 09:00 10/28/19 15:53 Neurontin PO 300 mg 0900,1600 LEON Administration Gabapentin 600 mg 10/26/19 22:00 10/27/19 21:38 Neurontin PO 600 mg QHS LEON Administration Guaifenesin 5 ml 10/26/19 00:17 Robitussin Dm PO Q4H PRN PRN Heparin Sodium (Beef Lung) 50 units 10/25/19 23:04 IV UD PRN PICC Line Heparin Flush Hydroxyzine HCl 50 mg 10/26/19 00:05 Atarax Tablet PO TID PRN PRN ITCHING Sodium Chloride 250 mls @ 15 mls/hr 10/25/19 23:05 10/27/19 06:37 IV 0 mls/hr .[id number] PRN Infusion Saline Flush Sodium Chloride 250 mls @ 15 mls/hr 10/25/19 23:05 IV .[id number] PRN Additional IVPB Infusion Piperacillin Sod/Tazobactam 50 mls @ 12.5 mls/hr 10/28/19 14:00 10/28/19 13:52 Sod 3.375 gm/ Sodium Chloride IV 11/16/19 23:59 12.5 mls/hr Q8 LEON Administration Lidocaine 2 patch 10/26/19 06:00 10/28/19 06:09 Lidoderm Patch TOPICAL 2 patch DAILY LEON Administration Lidocaine HCl 1 applic 10/26/19 00:10 10/26/19 01:18 Xylocaine 2% Jelly TOPICAL 1 applic Q6H PRN PRN Administration Pain Score 1-10/10 Protocol Metoprolol Tartrate 25 mg 10/26/19 06:00 10/28/19 06:06 Lopressor (Beta [place]) PO 25 mg BID LEON Administration Mirtazapine 15 mg 10/26/19 22:00 10/27/19 21:38 Remeron PO 15 mg QHS LEON Administration Nicotine 21 mg 10/26/19 06:00 10/28/19 06:07 Nicoderm Cq (Pbkc) TRANSDERM. 21 mg DAILY LEON Administration Nutritional Formula 1 packet 10/28/19 17:00 Elpidio - [place] Flavor PO BIDCM LEON Nutritional Formula (Lactose Free) 120 ml 10/26/19 06:00 10/28/19 11:46 Glucerna Shake PO 120 ml 4X/DAY LEON Administration Oxycodone HCl 5 mg 10/26/19 11:36 10/28/19 15:53 Oxyir PO 5 mg Q4H PRN PRN Administration Pain Score 4-10/10 Pantoprazole Sodium 40 mg 10/26/19 06:00 10/28/19 06:07 Protonix PO 40 mg DAILY LEON Administration Fluticasone/Salmeterol 1 puff 10/28/19 18:00 Fluticasone-Salmeterol 232-14 IH Q12 LEON Sertraline HCl 100 mg 10/26/19 06:00 10/28/19 06:09 Zoloft PO 100 mg DAILY LEON Administration Sodium Chloride 10 - 40 ml 10/25/19 23:04 10/27/19 06:37 IV 10 ml UD PRN Administration Open End PICC Flush Sodium Chloride 10 - 40 ml 10/25/19 23:04 0.9% Nacl (Sterile) Posiflush IV UD PRN Port access or dressing change Tamsulosin HCl 0.4 mg 10/26/19 22:00 10/27/19 21:27 Flomax PO 0.4 mg QHS LEON Administration Tizanidine HCl 2 mg 10/26/19 00:05 10/28/19 13:42 Zanaflex PO 2 mg Q8H PRN PRN Administration Muscle Spasms Tuberculin PPD 5 tu 11/02/19 10:00 Tubersol, Aplisol, Ppd ID 11/02/19 10:01 X1 ONE Umeclidinium [place] 1 puff 10/29/19 06:00 Incruse Ellipta Inhaler DAILY [facility] Warfarin Sodium 6 mg 10/28/19 17:00 Coumadin (Pbkc) PO DAILY@1700 [facility] Problem List Debility (Acute) Deep incisional surgical site infection (Acute) Lupus anticoagulant disorder (Chronic) Coronary artery disease (Chronic) Chronic obstructive pulmonary disease (Chronic) Diabetes mellitus (Chronic) Seizure disorder (Chronic) Peripheral arterial occlusive disease (Chronic) Asthma (Chronic) Hyperlipidemia (Chronic) Obstructive sleep apnea (Chronic) Vital Signs Temp Pulse Resp BP Pulse Ox 97.9 F 78 16 117/59 L 92 10/27/19 15:21 10/28/19 06:06 10/27/19 15:21 10/28/19 06:06 10/28/19 06:42 Oxygen Flow Rate (L/min) 2 Oxygen Delivery Method Room Air Weight: 75.041 kg Body Mass Index (BMI) 25.1 Finger Stick Blood Glucose 85 Sodium 140 mmol/L (136-145) 10/26/19 06:00 Potassium 4.0 mmol/L (3.5-5.1) 10/26/19 06:00 Chloride 105 mmol/L (98-107) 10/26/19 06:00 Carbon Dioxide 28.0 mmol/L (21.0-32.0) 10/26/19 06:00 Anion Gap 7 (5-15) 10/26/19 06:00 BUN 19 mg/dL (7-18) H 10/26/19 06:00 Creatinine 0.80 mg/dL (0.70-1.30) 10/26/19 06:00 Est GFR (MDRD) Af Amer 124 mL/min (>60) 10/26/19 06:00 Est GFR (MDRD) Non-Af 102 mL/min (>60) 10/26/19 06:00 BUN/Creatinine Ratio 23.9 RATIO (10-20) H 10/26/19 06:00 Glucose 103 mg/dL (74-106) 10/26/19 06:00 Assessment/Plan: Psychotropic Medications: Unnecessary Medications: Bowel Regimen: - Provider Comments Provider responsibility: Provider responsible to enter orders to implement recommendations Provider Comments to Recommendations by Pharmacy: Agree
[2019-10-28] MEDS: tiZANidine HCl 2 MG Tablet PO (13:42)
[2019-10-28 16:00] VITALS: BP 151/75; PULSE 74; RESP 16; TEMP 36.8; O2SAT 92
--- NOTE | 2019-10-28 16:52 | CASEMGMT ---
Social Work Discussed code status with pt. Pt confirmed full code. MOLST form completed and placed in chart. Patricia Cifuentes MSW EXTRACT OPERATOR
--- NOTE | 2019-10-28 17:28 | NURSING ---
THIS NURSE CHANGED PT WOUND VAC. RN AWARE
[2019-10-28 18:46] VITALS: BP 151/75; PULSE 74
[2019-10-28] MEDS: Fluticasone/Salmeterol 232-14 Inhaler 1 PUFF IH (18:48)
--- NOTE | 2019-10-28 19:30 | NURSING ---
IV Zosyn completed at 6pm
[2019-10-28] MEDS: Gabapentin 300 MG Capsule 600 MG PO (21:42)
[2019-10-28] MEDS: Atorvastatin Calcium 40 MG Tablet PO (21:43)
[2019-10-28] MEDS: Mirtazapine 15 MG Tablet PO (21:43)
[2019-10-28] MEDS: Tamsulosin HCl 0.4 MG Capsule PO (21:44)
--- NOTE | 2019-10-28 22:35 | NURSING ---
Discussed code status with family. Family wishes patient be a DNR CC per his advanced directives.
[2019-10-29] MEDS: 0.9% Saline Lock 10 ML Syringe IV (04:44)
[2019-10-29] MEDS: oxyCODONE 5 MG Tablet PO ×4 (04:50→19:53)
[2019-10-29] MEDS: Glucerna Shake 120 ML LIQUID PO ×4 (04:50→19:55)
[2019-10-29 04:52] VITALS: BP 136/70; PULSE 65; RESP 18; TEMP 36.4; O2SAT 94
[2019-10-29] MEDS: Fluticasone/Salmeterol 232-14 Inhaler 1 PUFF IH ×2 (04:53→17:59)
[2019-10-29] MEDS: Umeclidinium Bromide Inhaler 1 PUFF IH (04:55)
[2019-10-29 04:56] VITALS: BP 136/70; PULSE 65
[2019-10-29] MEDS: Dicyclomine 10 MG Capsule 20 MG PO ×3 (04:56→17:57)
[2019-10-29] MEDS: Metoprolol Tartrate 25 MG Tablet PO ×2 (04:56→18:02)
[2019-10-29] MEDS: Lidocaine 5% Patch 2 PATCH TOPICAL (04:56)
[2019-10-29] MEDS: Acetaminophen 500 MG Tablet 1000 MG PO ×3 (04:57→18:03)
[2019-10-29] MEDS: Sertraline 100 MG Tablet PO (04:57)
[2019-10-29] MEDS: Finasteride 5 MG Tablet PO (04:58)
[2019-10-29] MEDS: Pantoprazole Sodium 40 MG Tablet PO (04:58)
[2019-10-29] MEDS: carBAMazepine 200 MG Tablet PO ×2 (04:58→18:03)
[2019-10-29] MEDS: amLODIPine 5 MG Tablet PO (04:59)
[2019-10-29] MEDS: Clopidogrel Bisulfate 75 MG Tablet PO (04:59)
[2019-10-29] MEDS: Enoxaparin 80 MG/0.8 ML Syringe SC ×2 (05:09→18:03)
[2019-10-29 06:14] LABS: International Normalized Ratio 1.5; Prothrombin Time (Protime)PT. 17.9 SECONDS (11.7-14.9)
[2019-10-29 06:55] VITALS: O2SAT 94
[2019-10-29] MEDS: Gabapentin 300 MG Capsule PO ×2 (09:04→15:37)
[2019-10-29 16:14] VITALS: BP 149/69; PULSE 72; RESP 18; TEMP 36.2; O2SAT 93
[2019-10-29 18:02] VITALS: BP 149/69; PULSE 72
[2019-10-29] MEDS: Tamsulosin HCl 0.4 MG Capsule PO (19:54)
[2019-10-29] MEDS: Mirtazapine 15 MG Tablet PO (19:54)
[2019-10-29] MEDS: Gabapentin 300 MG Capsule 600 MG PO (19:55)
[2019-10-29] MEDS: Atorvastatin Calcium 40 MG Tablet PO (19:55)
[2019-10-30 05:50] VITALS: BP 128/61; PULSE 68; RESP 18; TEMP 36.3; O2SAT 94
[2019-10-30] MEDS: 0.9% Saline Lock 10 ML Syringe IV ×2 (05:59→21:42)
[2019-10-30] MEDS: oxyCODONE 5 MG Tablet PO ×4 (06:00→21:43)
[2019-10-30] MEDS: Umeclidinium Bromide Inhaler 1 PUFF IH (06:01)
[2019-10-30] MEDS: Fluticasone/Salmeterol 232-14 Inhaler 1 PUFF IH ×2 (06:02→19:04)
[2019-10-30] MEDS: amLODIPine 5 MG Tablet PO (06:03)
[2019-10-30] MEDS: carBAMazepine 200 MG Tablet PO ×2 (06:03→19:06)
[2019-10-30] MEDS: Sertraline 100 MG Tablet PO (06:03)
[2019-10-30] MEDS: Acetaminophen 500 MG Tablet 1000 MG PO ×3 (06:03→19:06)
[2019-10-30] MEDS: Dicyclomine 10 MG Capsule 20 MG PO ×3 (06:03→19:05)
[2019-10-30] MEDS: Enoxaparin 80 MG/0.8 ML Syringe SC ×2 (06:03→19:05)
[2019-10-30 06:04] VITALS: BP 128/61; PULSE 68
[2019-10-30] MEDS: Finasteride 5 MG Tablet PO (06:04)
[2019-10-30] MEDS: Metoprolol Tartrate 25 MG Tablet PO ×2 (06:04→19:05)
[2019-10-30] MEDS: Pantoprazole Sodium 40 MG Tablet PO (06:04)
[2019-10-30] MEDS: Clopidogrel Bisulfate 75 MG Tablet PO (06:04)
[2019-10-30] MEDS: Glucerna Shake 120 ML LIQUID PO ×4 (06:06→21:56)
[2019-10-30] MEDS: Lidocaine 5% Patch 2 PATCH TOPICAL (06:13)
[2019-10-30 06:15] LABS: International Normalized Ratio 1.6; Prothrombin Time (Protime)PT. 18.2 SECONDS (11.7-14.9)
[2019-10-30 06:32] VITALS: O2SAT 95
[2019-10-30] MEDS: Gabapentin 300 MG Capsule PO ×2 (08:48→14:55)
[2019-10-30] MEDS: tiZANidine HCl 2 MG Tablet PO (08:49)
--- NOTE | 2019-10-30 14:32 | MDS.RN ---
Pain interview for maria eugenia 10/31/19 completed.
[2019-10-30 14:34] VITALS: BP 140/57; PULSE 69; RESP 16; TEMP 36.1; O2SAT 94
[2019-10-30 19:05] VITALS: BP 157/68; PULSE 69
--- NOTE | 2019-10-30 20:15 | NURSING ---
wound vac changed, good seal, no leak. pt tolerated well. wound bed beefy red. pt resting in bed on back.
[2019-10-30] MEDS: Gabapentin 300 MG Capsule 600 MG PO (21:54)
[2019-10-30] MEDS: Mirtazapine 15 MG Tablet PO (21:54)
[2019-10-30] MEDS: Tamsulosin HCl 0.4 MG Capsule PO (21:54)
[2019-10-30] MEDS: Atorvastatin Calcium 40 MG Tablet PO (21:54)
[2019-10-31] MEDS: 0.9% Saline Lock 10 ML Syringe IV ×6 (05:30→21:17)
[2019-10-31] MEDS: Enoxaparin 80 MG/0.8 ML Syringe SC ×2 (05:35→16:44)
[2019-10-31] MEDS: amLODIPine 5 MG Tablet PO (05:35)
[2019-10-31] MEDS: Dicyclomine 10 MG Capsule 20 MG PO ×3 (05:35→16:43)
[2019-10-31] MEDS: Clopidogrel Bisulfate 75 MG Tablet PO (05:35)
[2019-10-31] MEDS: Acetaminophen 500 MG Tablet 1000 MG PO ×3 (05:35→21:22)
[2019-10-31 05:36] VITALS: BP 139/63; PULSE 63
[2019-10-31] MEDS: oxyCODONE 5 MG Tablet PO ×3 (05:36→21:18)
[2019-10-31] MEDS: Sertraline 100 MG Tablet PO (05:36)
[2019-10-31] MEDS: carBAMazepine 200 MG Tablet PO ×2 (05:36→16:46)
[2019-10-31] MEDS: Metoprolol Tartrate 25 MG Tablet PO ×2 (05:36→16:51)
[2019-10-31] MEDS: Fluticasone/Salmeterol 232-14 Inhaler 1 PUFF IH ×2 (05:40→16:44)
[2019-10-31] MEDS: Finasteride 5 MG Tablet PO (05:40)
[2019-10-31] MEDS: Umeclidinium Bromide Inhaler 1 PUFF IH (05:40)
[2019-10-31] MEDS: Lidocaine 5% Patch 2 PATCH TOPICAL (05:44)
[2019-10-31] MEDS: Glucerna Shake 120 ML LIQUID PO ×4 (05:47→21:21)
[2019-10-31] MEDS: Pantoprazole Sodium 40 MG Tablet PO (05:48)
[2019-10-31 06:11] LABS: International Normalized Ratio 1.7; Prothrombin Time (Protime)PT. 19.6 SECONDS (11.7-14.9)
[2019-10-31 06:46] VITALS: O2SAT 96
[2019-10-31] MEDS: Gabapentin 300 MG Capsule PO ×2 (08:32→16:42)
--- NOTE | 2019-10-31 11:25 | NURSING ---
Contacted Vascular Clinician for when the suture to the left inner thigh can be removed. Waiting for return call.
--- NOTE | 2019-10-31 13:19 | NURSING ---
Spoke with Dr. Villa's office, Vascular surgeon. The suture to patients left inner thigh is to stay in place until f/u on November 24.
--- NOTE | 2019-10-31 13:23 | CASEMGMT ---
Social Work IDT met with patient and ex- via conference call for care plan meeting. Discussed patient's progress in therapy. Pt is SBA for bed mobility, walking 50 ft with FWW at SBA, decreased strength in LLE and limited ROM due to weakness and pain. Pt is SBA to [facility] for transfers, but has declined ADLs. Pt is on a regular diet, receiving Glucerna shakes, med pass, Elpidio. Pt has fair intake, has med ordered for appetite stimulant. Pt can come out of room isolation 11/06. Pt receiving IV ATBs Q8 until 11/15, has a wound vac without a stop date, and cannot return home until IVs are discontinued. Explained insurance with [employer]D 10/31. Pt has Passport with [facility], [facility] and med dispenser services. Will continue to follow for DC planning. MINA IsaacW
[2019-10-31 16:51] VITALS: PULSE 74
[2019-10-31] MEDS: Tamsulosin HCl 0.4 MG Capsule PO (21:21)
[2019-10-31] MEDS: Gabapentin 300 MG Capsule 600 MG PO (21:22)
[2019-10-31] MEDS: Atorvastatin Calcium 40 MG Tablet PO (21:23)
[2019-10-31] MEDS: Mirtazapine 15 MG Tablet PO (21:23)
[2019-11-01] MEDS: Fluticasone/Salmeterol 232-14 Inhaler 1 PUFF IH ×2 (06:06→16:57)
[2019-11-01] MEDS: Glucerna Shake 120 ML LIQUID PO ×4 (06:06→21:51)
[2019-11-01] MEDS: oxyCODONE 5 MG Tablet PO ×3 (06:06→23:24)
[2019-11-01] MEDS: Umeclidinium Bromide Inhaler 1 PUFF IH (06:07)
[2019-11-01 06:08] VITALS: BP 142/69; PULSE 69
[2019-11-01 06:08] LABS: International Normalized Ratio 1.9; Prothrombin Time (Protime)PT. 21.5 SECONDS (11.7-14.9)
[2019-11-01] MEDS: Metoprolol Tartrate 25 MG Tablet PO ×2 (06:08→17:00)
[2019-11-01] MEDS: Acetaminophen 500 MG Tablet 1000 MG PO ×3 (06:08→21:49)
[2019-11-01] MEDS: Dicyclomine 10 MG Capsule 20 MG PO ×3 (06:08→16:54)
[2019-11-01] MEDS: Sertraline 100 MG Tablet PO (06:08)
[2019-11-01] MEDS: carBAMazepine 200 MG Tablet PO ×2 (06:09→17:04)
[2019-11-01] MEDS: amLODIPine 5 MG Tablet PO (06:09)
[2019-11-01] MEDS: Pantoprazole Sodium 40 MG Tablet PO (06:09)
[2019-11-01] MEDS: Finasteride 5 MG Tablet PO (06:09)
[2019-11-01] MEDS: Clopidogrel Bisulfate 75 MG Tablet PO (06:10)
[2019-11-01] MEDS: Lidocaine 5% Patch 2 PATCH TOPICAL (06:17)
[2019-11-01 06:21] VITALS: BP 142/69; PULSE 69; RESP 18; TEMP 36.4; O2SAT 90
[2019-11-01] MEDS: Enoxaparin 80 MG/0.8 ML Syringe SC (06:24)
[2019-11-01 07:25] VITALS: O2SAT 91
[2019-11-01] MEDS: Gabapentin 300 MG Capsule PO ×2 (08:38→16:53)
[2019-11-01] MEDS: 0.9% Saline Lock 10 ML Syringe IV ×2 (14:15→21:43)
[2019-11-01 14:41] VITALS: BP 143/75; PULSE 79; RESP 16; TEMP 36.2; O2SAT 92
[2019-11-01 17:00] VITALS: PULSE 65
[2019-11-01 18:46] VITALS: RESP 14
[2019-11-01] MEDS: Mirtazapine 15 MG Tablet PO (21:49)
[2019-11-01] MEDS: Gabapentin 300 MG Capsule 600 MG PO (21:49)
[2019-11-01] MEDS: Atorvastatin Calcium 40 MG Tablet PO (21:49)
[2019-11-01] MEDS: Tamsulosin HCl 0.4 MG Capsule PO (21:50)
[2019-11-02] MEDS: 0.9% Saline Lock 10 ML Syringe IV ×3 (05:46→21:20)
[2019-11-02] MEDS: Lidocaine 5% Patch 2 PATCH TOPICAL (05:50)
[2019-11-02] MEDS: Dicyclomine 10 MG Capsule 20 MG PO ×3 (05:50→16:05)
[2019-11-02] MEDS: Acetaminophen 500 MG Tablet 1000 MG PO ×3 (05:50→21:17)
[2019-11-02 05:51] VITALS: BP 129/62; PULSE 63
[2019-11-02] MEDS: Metoprolol Tartrate 25 MG Tablet PO ×2 (05:51→18:02)
[2019-11-02] MEDS: Glucerna Shake 120 ML LIQUID PO ×4 (05:51→21:06)
[2019-11-02] MEDS: carBAMazepine 200 MG Tablet PO ×2 (05:51→18:02)
[2019-11-02] MEDS: Finasteride 5 MG Tablet PO (05:51)
[2019-11-02] MEDS: Pantoprazole Sodium 40 MG Tablet PO (05:51)
[2019-11-02] MEDS: Clopidogrel Bisulfate 75 MG Tablet PO (05:51)
[2019-11-02] MEDS: Fluticasone/Salmeterol 232-14 Inhaler 1 PUFF IH ×2 (05:53→18:02)
[2019-11-02] MEDS: amLODIPine 5 MG Tablet PO (05:53)
[2019-11-02] MEDS: Sertraline 100 MG Tablet PO (05:53)
[2019-11-02] MEDS: Umeclidinium Bromide Inhaler 1 PUFF IH (05:54)
[2019-11-02] MEDS: oxyCODONE 5 MG Tablet PO ×3 (06:00→21:06)
[2019-11-02 06:03] VITALS: RESP 18; TEMP 36.9; O2SAT 95
[2019-11-02 06:56] LABS: Absolute Lymphocyte Count 1.62 X10^3/uL (0.83-4.51); Absolute Neutrophil Count 3.3 X10^3/uL (2.0-7.7); Basophil# 0.12 X10^3/uL; Basophil% 1.9 % (0-1); Eosinophil# 0.67 X10^3/uL; Eosinophils% 10.7 % (0-5); Hematocrit 30.6 % (40-54); Hemoglobin 9.4 g/dL (13.0-16.5); Lymphocyte # 1.62 X10^3/ul (4.0); Lymphocyte % 25.8 % (19-41); Mean Corp Hgb Conc 30.7 g/dL (32-36); Mean Corpuscular Volume 94.4 fL (80-94); Mean Platelet Vol. 9.3 fl (6.2-12.0); Monocyte# 0.53 X10^3/uL; Monocyte% 8.4 % (0-10); NRBC Flagged by Analyzer 0 % (0-5); Neutrophil # 3.31 X10^3/uL (2.7-7.7); Neutrophil % 52.7 % (47-70); Platelet Count 400 K/mm3 (150-450); RBC Distribution Width CV 15.6 % (11.6-14.6); RBC Distribution Width SD 53.7 fl (35.1-43.9); Red Blood Count 3.24 M/mm3 (4.6-6.2); White Blood Count 6.3 K/mm3 (4.4-11.0)
[2019-11-02 07:14] LABS: Anion Gap 4 (5-15); BUN 21 mg/dL (7-18); BUN/Creat Ratio 25.8 RATIO (10-20); Calcium,Total 8.7 mg/dL (8.5-10.1); Chloride 107 mmol/L (98-107); Creatinine, Serum 0.82 mg/dL (0.70-1.30); EST Glomerular Filtration Rate 99 mL/min (>60); Est Glom Filt Rate - Afr Amer 120 mL/min (>60); Glucose 110 mg/dL (74-106); Potassium 3.9 mmol/L (3.5-5.1); Sodium Level 139 mmol/L (136-145)
[2019-11-02] MEDS: Gabapentin 300 MG Capsule PO ×2 (09:14→16:05)
[2019-11-02] MEDS: Tuberculin,Purif.prot.deriv. 50 TU/ML Vial 5 ML ID (10:44)
[2019-11-02 16:14] VITALS: BP 153/63; PULSE 70; RESP 16; TEMP 36.3; O2SAT 93
[2019-11-02 18:02] VITALS: PULSE 70
[2019-11-02] MEDS: Senna/Docusate Sodium 1 Tablet 2 TABLET PO (18:02)
[2019-11-02] MEDS: Mirtazapine 15 MG Tablet PO (21:17)
[2019-11-02] MEDS: Tamsulosin HCl 0.4 MG Capsule PO (21:17)
[2019-11-02] MEDS: Atorvastatin Calcium 40 MG Tablet PO (21:17)
[2019-11-02] MEDS: Gabapentin 300 MG Capsule 600 MG PO (21:17)
[2019-11-03] MEDS: oxyCODONE 5 MG Tablet PO ×4 (06:46→20:35)
[2019-11-03] MEDS: Glucerna Shake 120 ML LIQUID PO ×4 (06:46→20:55)
[2019-11-03] MEDS: 0.9% Saline Lock 10 ML Syringe IV ×3 (06:46→20:55)
[2019-11-03] MEDS: Senna/Docusate Sodium 1 Tablet 2 TABLET PO ×2 (06:46→16:20)
[2019-11-03 06:47] VITALS: BP 138/57; PULSE 60
[2019-11-03] MEDS: Finasteride 5 MG Tablet PO (06:47)
[2019-11-03] MEDS: Metoprolol Tartrate 25 MG Tablet PO ×2 (06:47→16:21)
[2019-11-03] MEDS: carBAMazepine 200 MG Tablet PO ×2 (06:47→16:20)
[2019-11-03] MEDS: Sertraline 100 MG Tablet PO (06:47)
[2019-11-03] MEDS: Pantoprazole Sodium 40 MG Tablet PO (06:47)
[2019-11-03] MEDS: amLODIPine 5 MG Tablet PO (06:47)
[2019-11-03] MEDS: Acetaminophen 500 MG Tablet 1000 MG PO ×3 (06:47→21:05)
[2019-11-03] MEDS: Dicyclomine 10 MG Capsule 20 MG PO ×3 (06:47→16:20)
[2019-11-03] MEDS: Clopidogrel Bisulfate 75 MG Tablet PO (06:47)
[2019-11-03] MEDS: Lidocaine 5% Patch 2 PATCH TOPICAL (06:48)
[2019-11-03] MEDS: Umeclidinium Bromide Inhaler 1 PUFF IH (06:50)
[2019-11-03] MEDS: Fluticasone/Salmeterol 232-14 Inhaler 1 PUFF IH ×2 (06:50→16:15)
[2019-11-03] MEDS: Gabapentin 300 MG Capsule PO ×2 (09:41→16:20)
[2019-11-03 15:26] VITALS: BP 128/53; PULSE 74; RESP 18; TEMP 36.4; O2SAT 94
[2019-11-03 16:21] VITALS: BP 128/53; PULSE 74
[2019-11-03] MEDS: Benzonatate 100 MG Capsule PO (17:28)
[2019-11-03 19:50] VITALS: PULSE 64; RESP 18; O2SAT 96
[2019-11-03] MEDS: Ipratropium/Albuterol Sulfate 3 ML AMPUL.NEB INHALATION (19:50)
[2019-11-03] MEDS: Atorvastatin Calcium 40 MG Tablet PO (21:05)
[2019-11-03] MEDS: Tamsulosin HCl 0.4 MG Capsule PO (21:05)
[2019-11-03] MEDS: Gabapentin 300 MG Capsule 600 MG PO (21:05)
[2019-11-03] MEDS: Mirtazapine 15 MG Tablet PO (21:05)
[2019-11-03 23:13] VITALS: PULSE 74; O2SAT 95
[2019-11-04] VITALS (8 sets, daily range): BP systolic 135–156; BP diastolic 68–71; PULSE 68–80; RESP 16–18; TEMP 36–36.9; O2SAT 86–96
[2019-11-04] MEDS: Glucerna Shake 120 ML LIQUID PO ×4 (06:02→22:19)
[2019-11-04] MEDS: 0.9% Saline Lock 10 ML Syringe IV ×3 (06:03→22:16)
[2019-11-04] MEDS: Clopidogrel Bisulfate 75 MG Tablet PO (06:03)
[2019-11-04] MEDS: Metoprolol Tartrate 25 MG Tablet PO ×2 (06:03→18:42)
[2019-11-04] MEDS: Senna/Docusate Sodium 1 Tablet 2 TABLET PO ×2 (06:03→18:43)
[2019-11-04] MEDS: carBAMazepine 200 MG Tablet PO ×2 (06:03→18:47)
[2019-11-04] MEDS: amLODIPine 5 MG Tablet PO (06:03)
[2019-11-04] MEDS: Finasteride 5 MG Tablet PO (06:03)
[2019-11-04] MEDS: Dicyclomine 10 MG Capsule 20 MG PO ×3 (06:03→15:55)
[2019-11-04] MEDS: Acetaminophen 500 MG Tablet 1000 MG PO ×3 (06:04→22:22)
[2019-11-04] MEDS: oxyCODONE 5 MG Tablet PO ×3 (06:04→22:19)
[2019-11-04] MEDS: Umeclidinium Bromide Inhaler 1 PUFF IH (06:04)
[2019-11-04] MEDS: Lidocaine 5% Patch 2 PATCH TOPICAL (06:05)
[2019-11-04] MEDS: Fluticasone/Salmeterol 232-14 Inhaler 1 PUFF IH ×2 (06:05→18:38)
[2019-11-04] MEDS: Pantoprazole Sodium 40 MG Tablet PO (06:14)
[2019-11-04] MEDS: Sertraline 100 MG Tablet PO (06:16)
[2019-11-04] MEDS: Ipratropium/Albuterol Sulfate 3 ML AMPUL.NEB INHALATION ×3 (06:27→21:10)
[2019-11-04 06:28] LABS: International Normalized Ratio 2.2; Prothrombin Time (Protime)PT. 23.7 SECONDS (11.7-14.9)
[2019-11-04] MEDS: Gabapentin 300 MG Capsule PO ×2 (08:12→15:55)
--- NOTE | 2019-11-04 12:37 | NURSING ---
wound photo: left groin
[2019-11-04] MEDS: Atorvastatin Calcium 40 MG Tablet PO (22:22)
[2019-11-04] MEDS: Mirtazapine 15 MG Tablet PO (22:22)
[2019-11-04] MEDS: Tamsulosin HCl 0.4 MG Capsule PO (22:23)
[2019-11-04] MEDS: Gabapentin 300 MG Capsule 600 MG PO (22:23)
[2019-11-05] MEDS: Glucerna Shake 120 ML LIQUID PO ×4 (06:44→21:36)
[2019-11-05 06:45] VITALS: BP 117/55; PULSE 70; RESP 18; TEMP 36.3; O2SAT 94
[2019-11-05] MEDS: Fluticasone/Salmeterol 232-14 Inhaler 1 PUFF IH ×2 (06:46→16:53)
[2019-11-05] MEDS: Lidocaine 5% Patch 2 PATCH TOPICAL (06:47)
[2019-11-05] MEDS: Umeclidinium Bromide Inhaler 1 PUFF IH (06:47)
[2019-11-05 06:48] VITALS: BP 117/55; PULSE 70
[2019-11-05] MEDS: Dicyclomine 10 MG Capsule 20 MG PO ×3 (06:48→16:48)
[2019-11-05] MEDS: Metoprolol Tartrate 25 MG Tablet PO ×2 (06:48→16:47)
[2019-11-05] MEDS: Finasteride 5 MG Tablet PO (06:49)
[2019-11-05] MEDS: Clopidogrel Bisulfate 75 MG Tablet PO (06:49)
[2019-11-05] MEDS: amLODIPine 5 MG Tablet PO (06:49)
[2019-11-05] MEDS: Acetaminophen 500 MG Tablet 1000 MG PO ×3 (06:50→21:40)
[2019-11-05] MEDS: Senna/Docusate Sodium 1 Tablet 2 TABLET PO ×2 (06:50→16:50)
[2019-11-05] MEDS: Pantoprazole Sodium 40 MG Tablet PO (06:50)
[2019-11-05] MEDS: carBAMazepine 200 MG Tablet PO ×2 (06:51→16:53)
[2019-11-05] MEDS: Sertraline 100 MG Tablet PO (06:52)
[2019-11-05] MEDS: oxyCODONE 5 MG Tablet PO (06:56)
[2019-11-05 07:30] VITALS: PULSE 86; RESP 18; O2SAT 91
[2019-11-05] MEDS: Ipratropium/Albuterol Sulfate 3 ML AMPUL.NEB INHALATION ×2 (07:30→19:16)
[2019-11-05] MEDS: Gabapentin 300 MG Capsule PO ×2 (08:47→16:49)
[2019-11-05] MEDS: 0.9% Saline Lock 10 ML Syringe IV (12:43)
[2019-11-05 14:26] VITALS: BP 144/64; PULSE 74; RESP 16; TEMP 36.8; O2SAT 93
[2019-11-05 16:47] VITALS: PULSE 74
[2019-11-05 20:04] VITALS: PULSE 78; RESP 18
[2019-11-05] MEDS: Gabapentin 300 MG Capsule 600 MG PO (21:36)
[2019-11-05] MEDS: Atorvastatin Calcium 40 MG Tablet PO (21:37)
[2019-11-05] MEDS: Mirtazapine 15 MG Tablet PO (21:37)
[2019-11-05] MEDS: Tamsulosin HCl 0.4 MG Capsule PO (21:40)
[2019-11-06] VITALS (7 sets, daily range): BP systolic 129–146; BP diastolic 60–77; PULSE 59–78; RESP 14–18; TEMP 36.1–36.7; O2SAT 94
--- NOTE | 2019-11-06 03:06 | PCA ---
pt refused to do PM care this evening
[2019-11-06] MEDS: oxyCODONE 5 MG Tablet PO ×3 (06:28→22:03)
[2019-11-06] MEDS: Fluticasone/Salmeterol 232-14 Inhaler 1 PUFF IH ×2 (06:29→17:10)
[2019-11-06] MEDS: Pantoprazole Sodium 40 MG Tablet PO (06:29)
[2019-11-06] MEDS: Umeclidinium Bromide Inhaler 1 PUFF IH (06:30)
[2019-11-06] MEDS: Lidocaine 5% Patch 2 PATCH TOPICAL (06:31)
[2019-11-06] MEDS: carBAMazepine 200 MG Tablet PO ×2 (06:31→17:08)
[2019-11-06] MEDS: Clopidogrel Bisulfate 75 MG Tablet PO (06:32)
[2019-11-06] MEDS: Finasteride 5 MG Tablet PO (06:32)
[2019-11-06] MEDS: Metoprolol Tartrate 25 MG Tablet PO ×2 (06:32→17:08)
[2019-11-06] MEDS: Acetaminophen 500 MG Tablet 1000 MG PO ×3 (06:32→22:06)
[2019-11-06] MEDS: Dicyclomine 10 MG Capsule 20 MG PO ×3 (06:32→17:07)
[2019-11-06] MEDS: amLODIPine 5 MG Tablet PO (06:32)
[2019-11-06] MEDS: Senna/Docusate Sodium 1 Tablet 2 TABLET PO ×2 (06:32→17:07)
[2019-11-06] MEDS: Sertraline 100 MG Tablet PO (06:33)
[2019-11-06] MEDS: Glucerna Shake 120 ML LIQUID PO ×3 (06:37→22:03)
[2019-11-06] MEDS: Gabapentin 300 MG Capsule PO ×2 (08:15→17:07)
--- NOTE | 2019-11-06 12:05 | NURSING ---
Resident given PRN Oxyir before PT. Resident states he spoke with family earlier today.
[2019-11-06] MEDS: Ipratropium/Albuterol Sulfate 3 ML AMPUL.NEB INHALATION ×2 (13:40→19:55)
[2019-11-06] MEDS: 0.9% Saline Lock 10 ML Syringe IV (21:53)
[2019-11-06] MEDS: Gabapentin 300 MG Capsule 600 MG PO (22:06)
[2019-11-06] MEDS: Mirtazapine 15 MG Tablet PO (22:06)
[2019-11-06] MEDS: Atorvastatin Calcium 40 MG Tablet PO (22:06)
[2019-11-06] MEDS: Tamsulosin HCl 0.4 MG Capsule PO (22:06)
[2019-11-07] VITALS (7 sets, daily range): BP systolic 125–136; BP diastolic 55–71; PULSE 61–75; RESP 14–18; TEMP 36.1–36.7; O2SAT 92–97
[2019-11-07] MEDS: 0.9% Saline Lock 10 ML Syringe IV ×2 (06:18→21:59)
[2019-11-07] MEDS: Fluticasone/Salmeterol 232-14 Inhaler 1 PUFF IH ×2 (06:24→17:01)
[2019-11-07] MEDS: Glucerna Shake 120 ML LIQUID PO ×4 (06:24→22:10)
[2019-11-07] MEDS: oxyCODONE 5 MG Tablet PO ×4 (06:24→21:59)
[2019-11-07] MEDS: Umeclidinium Bromide Inhaler 1 PUFF IH (06:24)
[2019-11-07] MEDS: Sertraline 100 MG Tablet PO (06:25)
[2019-11-07] MEDS: Metoprolol Tartrate 25 MG Tablet PO ×2 (06:25→17:00)
[2019-11-07] MEDS: Acetaminophen 500 MG Tablet 1000 MG PO ×3 (06:25→22:09)
[2019-11-07] MEDS: amLODIPine 5 MG Tablet PO (06:25)
[2019-11-07] MEDS: Dicyclomine 10 MG Capsule 20 MG PO ×3 (06:25→15:33)
[2019-11-07] MEDS: carBAMazepine 200 MG Tablet PO ×2 (06:25→17:00)
[2019-11-07] MEDS: Clopidogrel Bisulfate 75 MG Tablet PO (06:25)
[2019-11-07] MEDS: Senna/Docusate Sodium 1 Tablet 2 TABLET PO ×2 (06:25→17:00)
[2019-11-07] MEDS: Pantoprazole Sodium 40 MG Tablet PO (06:25)
[2019-11-07] MEDS: Lidocaine 5% Patch 2 PATCH TOPICAL (06:27)
[2019-11-07] MEDS: Finasteride 5 MG Tablet PO (06:30)
--- NOTE | 2019-11-07 06:34 | NURSING ---
Pt refusing to have lab draw blood. Wanting blood drawn from PICC Line. Verified with lab that INR can be drawn from PICC as long as more than 5ml are waisted before draw.
[2019-11-07 06:45] LABS: International Normalized Ratio 2.5; Prothrombin Time (Protime)PT. 26.1 SECONDS (11.7-14.9)
[2019-11-07] MEDS: Gabapentin 300 MG Capsule PO ×2 (09:29→15:33)
[2019-11-07] MEDS: Ipratropium/Albuterol Sulfate 3 ML AMPUL.NEB INHALATION ×2 (13:45→18:57)
[2019-11-07] MEDS: Gabapentin 300 MG Capsule 600 MG PO (22:08)
[2019-11-07] MEDS: Mirtazapine 15 MG Tablet PO (22:08)
[2019-11-07] MEDS: Atorvastatin Calcium 40 MG Tablet PO (22:09)
[2019-11-07] MEDS: Tamsulosin HCl 0.4 MG Capsule PO (22:09)
[2019-11-08] MEDS: Glucerna Shake 120 ML LIQUID PO ×4 (06:39→22:38)
[2019-11-08] MEDS: Fluticasone/Salmeterol 232-14 Inhaler 1 PUFF IH ×2 (06:39→17:12)
[2019-11-08] MEDS: Umeclidinium Bromide Inhaler 1 PUFF IH (06:39)
[2019-11-08] MEDS: carBAMazepine 200 MG Tablet PO ×2 (06:40→17:08)
[2019-11-08] MEDS: Senna/Docusate Sodium 1 Tablet 2 TABLET PO ×2 (06:40→17:08)
[2019-11-08] MEDS: 0.9% Saline Lock 10 ML Syringe IV ×2 (06:40→22:41)
[2019-11-08] MEDS: Dicyclomine 10 MG Capsule 20 MG PO ×3 (06:41→17:05)
[2019-11-08] MEDS: Finasteride 5 MG Tablet PO (06:41)
[2019-11-08] MEDS: Acetaminophen 500 MG Tablet 1000 MG PO ×3 (06:41→22:31)
[2019-11-08] MEDS: amLODIPine 5 MG Tablet PO (06:41)
[2019-11-08] MEDS: Pantoprazole Sodium 40 MG Tablet PO (06:41)
[2019-11-08] MEDS: Clopidogrel Bisulfate 75 MG Tablet PO (06:41)
[2019-11-08] MEDS: Sertraline 100 MG Tablet PO (06:41)
[2019-11-08] MEDS: Lidocaine 5% Patch 2 PATCH TOPICAL (06:46)
[2019-11-08 06:48] VITALS: BP 157/77; PULSE 71
[2019-11-08] MEDS: Metoprolol Tartrate 25 MG Tablet PO ×2 (06:48→17:07)
[2019-11-08] MEDS: Gabapentin 300 MG Capsule PO ×2 (10:32→17:05)
[2019-11-08] MEDS: oxyCODONE 5 MG Tablet PO ×2 (10:34→22:31)
[2019-11-08 13:19] VITALS: PULSE 80; RESP 18; O2SAT 92
[2019-11-08 15:07] VITALS: BP 158/59; PULSE 85; RESP 20; TEMP 36.6; O2SAT 97
[2019-11-08 17:07] VITALS: PULSE 81
[2019-11-08] MEDS: guaiFENesin Dm 10 ML UDC 5 ML PO ×2 (17:59→23:37)
[2019-11-08 19:32] VITALS: PULSE 78; RESP 18
[2019-11-08] MEDS: Ipratropium/Albuterol Sulfate 3 ML AMPUL.NEB INHALATION (19:32)
[2019-11-08] MEDS: Mirtazapine 15 MG Tablet PO (22:32)
[2019-11-08] MEDS: Tamsulosin HCl 0.4 MG Capsule PO (22:33)
[2019-11-08] MEDS: Atorvastatin Calcium 40 MG Tablet PO (22:35)
[2019-11-08] MEDS: Gabapentin 300 MG Capsule 600 MG PO (22:35)
[2019-11-09] MEDS: oxyCODONE 5 MG Tablet PO ×3 (05:59→19:59)
[2019-11-09] MEDS: carBAMazepine 200 MG Tablet PO ×2 (06:00→18:38)
[2019-11-09] MEDS: Acetaminophen 500 MG Tablet 1000 MG PO ×3 (06:00→21:58)
[2019-11-09] MEDS: Dicyclomine 10 MG Capsule 20 MG PO ×3 (06:00→14:55)
[2019-11-09] MEDS: Senna/Docusate Sodium 1 Tablet 2 TABLET PO ×2 (06:00→18:40)
[2019-11-09] MEDS: Pantoprazole Sodium 40 MG Tablet PO (06:00)
[2019-11-09 06:01] VITALS: BP 136/66; PULSE 68
[2019-11-09] MEDS: Finasteride 5 MG Tablet PO (06:01)
[2019-11-09] MEDS: Metoprolol Tartrate 25 MG Tablet PO ×2 (06:01→18:39)
[2019-11-09] MEDS: amLODIPine 5 MG Tablet PO (06:01)
[2019-11-09] MEDS: Clopidogrel Bisulfate 75 MG Tablet PO (06:02)
[2019-11-09] MEDS: Sertraline 100 MG Tablet PO (06:03)
[2019-11-09 06:06] VITALS: BP 136/66; PULSE 68; RESP 16; TEMP 36.7; O2SAT 93
[2019-11-09] MEDS: Glucerna Shake 120 ML LIQUID PO ×4 (06:10→21:55)
[2019-11-09] MEDS: Lidocaine 5% Patch 2 PATCH TOPICAL (06:11)
[2019-11-09] MEDS: Fluticasone/Salmeterol 232-14 Inhaler 1 PUFF IH ×2 (06:16→18:38)
[2019-11-09] MEDS: Umeclidinium Bromide Inhaler 1 PUFF IH (06:16)
[2019-11-09 07:12] LABS: Absolute Lymphocyte Count 1.74 X10^3/uL (0.83-4.51); Absolute Neutrophil Count 4.1 X10^3/uL (2.0-7.7); Basophil# 0.13 X10^3/uL; Basophil% 1.8 % (0-1); Eosinophil# 0.48 X10^3/uL; Eosinophils% 6.7 % (0-5); Hematocrit 30.6 % (40-54); Hemoglobin 9.1 g/dL (13.0-16.5); Lymphocyte # 1.74 X10^3/ul (4.0); Lymphocyte % 24.4 % (19-41); Mean Corp Hgb Conc 29.7 g/dL (32-36); Mean Corpuscular Hgb 27.9 pg (27.0-32.0); Mean Corpuscular Volume 93.9 fL (80-94); Mean Platelet Vol. 9.5 fl (6.2-12.0); Monocyte# 0.64 X10^3/uL; NRBC Flagged by Analyzer 0 % (0-5); Neutrophil # 4.09 X10^3/uL (2.7-7.7); Neutrophil % 57.3 % (47-70); Platelet Count 329 K/mm3 (150-450); RBC Distribution Width CV 15.8 % (11.6-14.6); RBC Distribution Width SD 53.8 fl (35.1-43.9); Red Blood Count 3.26 M/mm3 (4.6-6.2); White Blood Count 7.1 K/mm3 (4.4-11.0)
[2019-11-09 07:35] LABS: Anion Gap 7 (5-15); BUN 24 mg/dL (7-18); BUN/Creat Ratio 25.6 RATIO (10-20); Calcium,Total 8.8 mg/dL (8.5-10.1); Chloride 105 mmol/L (98-107); Creatinine, Serum 0.94 mg/dL (0.70-1.30); EST Glomerular Filtration Rate 84 mL/min (>60); Est Glom Filt Rate - Afr Amer 102 mL/min (>60); Estimated Creatinine Clearance 70.74 ml/min; Glucose 99 mg/dL (74-106); Potassium 3.9 mmol/L (3.5-5.1); Sodium Level 140 mmol/L (136-145)
[2019-11-09] MEDS: Gabapentin 300 MG Capsule PO ×2 (08:21→14:54)
[2019-11-09 13:41] VITALS: O2SAT 94
--- NOTE | 2019-11-09 13:46 | NURSING ---
Resident on phone with ex at this time.
--- NOTE | 2019-11-09 14:56 | NURSING ---
Resident requested Bentyl 20mg at this time.
[2019-11-09 16:00] VITALS: BP 148/67; PULSE 70; RESP 16; TEMP 36.8; O2SAT 95
[2019-11-09 18:39] VITALS: BP 148/67; PULSE 70
[2019-11-09] MEDS: Gabapentin 300 MG Capsule 600 MG PO (21:55)
[2019-11-09] MEDS: Tamsulosin HCl 0.4 MG Capsule PO (21:58)
[2019-11-09] MEDS: Mirtazapine 15 MG Tablet PO (21:58)
[2019-11-09] MEDS: Atorvastatin Calcium 40 MG Tablet PO (21:59)
[2019-11-10] VITALS (8 sets, daily range): BP systolic 126–152; BP diastolic 60–72; PULSE 61–85; RESP 14–22; TEMP 36.2–36.7; O2SAT 90–91
[2019-11-10] MEDS: oxyCODONE 5 MG Tablet PO ×5 (01:10→20:53)
[2019-11-10] MEDS: amLODIPine 5 MG Tablet PO (06:45)
[2019-11-10] MEDS: Acetaminophen 500 MG Tablet 1000 MG PO ×3 (06:45→21:03)
[2019-11-10] MEDS: Clopidogrel Bisulfate 75 MG Tablet PO (06:45)
[2019-11-10] MEDS: carBAMazepine 200 MG Tablet PO ×2 (06:45→17:25)
[2019-11-10] MEDS: Sertraline 100 MG Tablet PO (06:45)
[2019-11-10] MEDS: Pantoprazole Sodium 40 MG Tablet PO (06:45)
[2019-11-10] MEDS: Senna/Docusate Sodium 1 Tablet 2 TABLET PO (06:45)
[2019-11-10] MEDS: Metoprolol Tartrate 25 MG Tablet PO ×2 (06:46→17:24)
[2019-11-10] MEDS: Dicyclomine 10 MG Capsule 20 MG PO ×3 (06:46→16:14)
[2019-11-10] MEDS: Finasteride 5 MG Tablet PO (06:46)
[2019-11-10] MEDS: Glucerna Shake 120 ML LIQUID PO ×4 (06:48→20:53)
[2019-11-10] MEDS: Ipratropium/Albuterol Sulfate 3 ML AMPUL.NEB INHALATION ×3 (06:50→19:18)
[2019-11-10] MEDS: Lidocaine 5% Patch 2 PATCH TOPICAL (06:53)
[2019-11-10] MEDS: Umeclidinium Bromide Inhaler 1 PUFF IH (06:55)
[2019-11-10] MEDS: Fluticasone/Salmeterol 232-14 Inhaler 1 PUFF IH ×2 (06:55→17:24)
[2019-11-10] MEDS: Gabapentin 300 MG Capsule PO ×2 (10:13→16:14)
[2019-11-10] MEDS: 0.9% Saline Lock 10 ML Syringe IV (20:53)
[2019-11-10] MEDS: Mirtazapine 15 MG Tablet PO (21:03)
[2019-11-10] MEDS: Tamsulosin HCl 0.4 MG Capsule PO (21:03)
[2019-11-10] MEDS: Gabapentin 300 MG Capsule 600 MG PO (21:03)
[2019-11-10] MEDS: Atorvastatin Calcium 40 MG Tablet PO (21:03)
[2019-11-11] MEDS: 0.9% Saline Lock 10 ML Syringe IV ×3 (05:59→20:59)
[2019-11-11 06:02] VITALS: BP 129/55; PULSE 66
[2019-11-11] MEDS: Sertraline 100 MG Tablet PO (06:02)
[2019-11-11] MEDS: Acetaminophen 500 MG Tablet 1000 MG PO ×3 (06:02→20:47)
[2019-11-11] MEDS: carBAMazepine 200 MG Tablet PO ×2 (06:02→17:49)
[2019-11-11] MEDS: Lidocaine 5% Patch 2 PATCH TOPICAL (06:02)
[2019-11-11] MEDS: Senna/Docusate Sodium 1 Tablet 2 TABLET PO (06:02)
[2019-11-11] MEDS: Finasteride 5 MG Tablet PO (06:02)
[2019-11-11] MEDS: Clopidogrel Bisulfate 75 MG Tablet PO (06:02)
[2019-11-11] MEDS: Metoprolol Tartrate 25 MG Tablet PO ×2 (06:02→17:49)
[2019-11-11] MEDS: Dicyclomine 10 MG Capsule 20 MG PO ×3 (06:02→15:57)
[2019-11-11] MEDS: amLODIPine 5 MG Tablet PO (06:02)
[2019-11-11] MEDS: Pantoprazole Sodium 40 MG Tablet PO (06:03)
[2019-11-11] MEDS: Glucerna Shake 120 ML LIQUID PO ×4 (06:03→20:46)
[2019-11-11] MEDS: Fluticasone/Salmeterol 232-14 Inhaler 1 PUFF IH ×2 (06:03→17:47)
[2019-11-11] MEDS: oxyCODONE 5 MG Tablet PO ×4 (06:03→20:45)
[2019-11-11] MEDS: Umeclidinium Bromide Inhaler 1 PUFF IH (06:04)
[2019-11-11 06:14] VITALS: RESP 17; TEMP 36.6; O2SAT 97
[2019-11-11 07:08] LABS: International Normalized Ratio 2.7; Prothrombin Time (Protime)PT. 28.7 SECONDS (11.7-14.9)
[2019-11-11] MEDS: Gabapentin 300 MG Capsule PO ×2 (08:06→15:57)
--- NOTE | 2019-11-11 14:40 | NURSING ---
Wound vac changed at this time. Pt tolerated well. Good seal, no leaks. Pt resting in bed, call light in reach.
[2019-11-11 15:40] VITALS: BP 159/69; PULSE 72; RESP 16; TEMP 36.7; O2SAT 93
[2019-11-11 17:49] VITALS: BP 159/69; PULSE 72
[2019-11-11 19:04] VITALS: PULSE 71; RESP 18; O2SAT 90
[2019-11-11] MEDS: Ipratropium/Albuterol Sulfate 3 ML AMPUL.NEB INHALATION (19:04)
[2019-11-11] MEDS: Tamsulosin HCl 0.4 MG Capsule PO (20:46)
[2019-11-11] MEDS: Gabapentin 300 MG Capsule 600 MG PO (20:47)
[2019-11-11] MEDS: Mirtazapine 15 MG Tablet PO (20:47)
[2019-11-11] MEDS: Atorvastatin Calcium 40 MG Tablet PO (20:48)
[2019-11-12] VITALS (7 sets, daily range): BP systolic 144–157; BP diastolic 63–93; PULSE 68–80; RESP 16–20; TEMP 36.5–36.8; O2SAT 90–95
[2019-11-12] MEDS: oxyCODONE 5 MG Tablet PO ×4 (05:56→22:02)
[2019-11-12] MEDS: Glucerna Shake 120 ML LIQUID PO ×4 (05:56→22:06)
[2019-11-12] MEDS: Lidocaine 5% Patch 2 PATCH TOPICAL (05:57)
[2019-11-12] MEDS: carBAMazepine 200 MG Tablet PO ×2 (05:59→17:20)
[2019-11-12] MEDS: Umeclidinium Bromide Inhaler 1 PUFF IH (05:59)
[2019-11-12] MEDS: Fluticasone/Salmeterol 232-14 Inhaler 1 PUFF IH ×2 (05:59→17:24)
[2019-11-12] MEDS: Dicyclomine 10 MG Capsule 20 MG PO ×3 (06:00→16:02)
[2019-11-12] MEDS: Metoprolol Tartrate 25 MG Tablet PO ×2 (06:00→17:19)
[2019-11-12] MEDS: amLODIPine 5 MG Tablet PO (06:00)
[2019-11-12] MEDS: Acetaminophen 500 MG Tablet 1000 MG PO ×3 (06:00→22:02)
[2019-11-12] MEDS: Clopidogrel Bisulfate 75 MG Tablet PO (06:00)
[2019-11-12] MEDS: Finasteride 5 MG Tablet PO (06:01)
[2019-11-12] MEDS: Pantoprazole Sodium 40 MG Tablet PO (06:01)
[2019-11-12] MEDS: Sertraline 100 MG Tablet PO (06:02)
[2019-11-12] MEDS: Ipratropium/Albuterol Sulfate 3 ML AMPUL.NEB INHALATION ×3 (07:40→19:42)
[2019-11-12] MEDS: Gabapentin 300 MG Capsule PO ×2 (08:30→16:00)
[2019-11-12] MEDS: Senna/Docusate Sodium 1 Tablet 2 TABLET PO (16:00)
[2019-11-12] MEDS: 0.9% Saline Lock 10 ML Syringe IV (21:51)
[2019-11-12] MEDS: Gabapentin 300 MG Capsule 600 MG PO (22:02)
[2019-11-12] MEDS: Mirtazapine 15 MG Tablet PO (22:02)
[2019-11-12] MEDS: Tamsulosin HCl 0.4 MG Capsule PO (22:02)
[2019-11-12] MEDS: Atorvastatin Calcium 40 MG Tablet PO (22:03)
[2019-11-13] MEDS: 0.9% Saline Lock 10 ML Syringe IV ×2 (05:58→21:30)
[2019-11-13 05:59] VITALS: BP 131/51; PULSE 70
[2019-11-13] MEDS: Metoprolol Tartrate 25 MG Tablet PO ×2 (05:59→17:04)
[2019-11-13] MEDS: Dicyclomine 10 MG Capsule 20 MG PO ×3 (05:59→15:50)
[2019-11-13] MEDS: Clopidogrel Bisulfate 75 MG Tablet PO (06:01)
[2019-11-13] MEDS: Acetaminophen 500 MG Tablet 1000 MG PO ×3 (06:01→21:41)
[2019-11-13] MEDS: Sertraline 100 MG Tablet PO (06:02)
[2019-11-13] MEDS: Pantoprazole Sodium 40 MG Tablet PO (06:02)
[2019-11-13] MEDS: amLODIPine 5 MG Tablet PO (06:02)
[2019-11-13] MEDS: carBAMazepine 200 MG Tablet PO ×2 (06:02→17:03)
[2019-11-13] MEDS: oxyCODONE 5 MG Tablet PO ×4 (06:03→21:31)
[2019-11-13] MEDS: Finasteride 5 MG Tablet PO (06:03)
[2019-11-13] MEDS: Lidocaine 5% Patch 2 PATCH TOPICAL (06:03)
[2019-11-13] MEDS: Fluticasone/Salmeterol 232-14 Inhaler 1 PUFF IH ×2 (06:04→17:06)
[2019-11-13] MEDS: Umeclidinium Bromide Inhaler 1 PUFF IH (06:08)
[2019-11-13] MEDS: Glucerna Shake 120 ML LIQUID PO ×4 (06:08→21:31)
[2019-11-13 06:12] VITALS: RESP 19; TEMP 36.3; O2SAT 93
[2019-11-13] MEDS: Gabapentin 300 MG Capsule PO ×2 (08:13→15:50)
[2019-11-13] MEDS: Benzonatate 100 MG Capsule PO (11:20)
--- NOTE | 2019-11-13 11:24 | NURSING ---
Resident on phone with ex at this time.
[2019-11-13 11:25] VITALS: PULSE 64; RESP 18; O2SAT 91
[2019-11-13 11:37] VITALS: BP 162/77; PULSE 64; RESP 18; TEMP 36.6; O2SAT 91
[2019-11-13 13:45] VITALS: PULSE 84; RESP 18; O2SAT 96
[2019-11-13] MEDS: Ipratropium/Albuterol Sulfate 3 ML AMPUL.NEB INHALATION (13:45)
[2019-11-13] MEDS: Senna/Docusate Sodium 1 Tablet 2 TABLET PO (17:03)
[2019-11-13 17:04] VITALS: BP 162/77; PULSE 64
--- NOTE | 2019-11-13 17:11 | CASEMGMT ---
Social Work Spoke with pt about DC plans. Pt has f/u appt with surgeon to get sutures removed on 11/24 and surgeon does not want them removed prior. Pt still has wound vac. IDT recommending pt DC after f/u appt to ensure safe DC. Pt requesting hospital bed and FWW at home with [facility]. Will restart Passport services as well. Explained insurance NRD 11/13. Will continue to follow.
[2019-11-13] MEDS: Tamsulosin HCl 0.4 MG Capsule PO (21:41)
[2019-11-13] MEDS: Atorvastatin Calcium 40 MG Tablet PO (21:41)
[2019-11-13] MEDS: Mirtazapine 15 MG Tablet PO (21:41)
[2019-11-13] MEDS: Gabapentin 300 MG Capsule 600 MG PO (21:41)
[2019-11-14 05:38] VITALS: BP 144/68; PULSE 63; RESP 18; TEMP 36.5; O2SAT 93
[2019-11-14] MEDS: Glucerna Shake 120 ML LIQUID PO ×4 (05:39→20:54)
[2019-11-14] MEDS: 0.9% Saline Lock 10 ML Syringe IV ×3 (05:39→20:58)
[2019-11-14] MEDS: Acetaminophen 500 MG Tablet 1000 MG PO ×3 (05:40→20:55)
[2019-11-14] MEDS: Dicyclomine 10 MG Capsule 20 MG PO ×3 (05:41→16:38)
[2019-11-14] MEDS: Senna/Docusate Sodium 1 Tablet 2 TABLET PO ×2 (05:43→17:52)
[2019-11-14] MEDS: carBAMazepine 200 MG Tablet PO ×2 (05:43→17:52)
[2019-11-14] MEDS: Sertraline 100 MG Tablet PO (05:44)
[2019-11-14] MEDS: amLODIPine 5 MG Tablet PO (05:44)
[2019-11-14] MEDS: Clopidogrel Bisulfate 75 MG Tablet PO (05:44)
[2019-11-14 05:45] VITALS: BP 120/60; PULSE 63
[2019-11-14] MEDS: Finasteride 5 MG Tablet PO (05:45)
[2019-11-14] MEDS: Metoprolol Tartrate 25 MG Tablet PO ×2 (05:45→17:52)
[2019-11-14] MEDS: Umeclidinium Bromide Inhaler 1 PUFF IH (05:46)
[2019-11-14] MEDS: Fluticasone/Salmeterol 232-14 Inhaler 1 PUFF IH ×2 (05:46→17:51)
[2019-11-14] MEDS: Lidocaine 5% Patch 2 PATCH TOPICAL (05:47)
[2019-11-14] MEDS: Pantoprazole Sodium 40 MG Tablet PO (05:48)
[2019-11-14 06:16] LABS: International Normalized Ratio 2.7; Prothrombin Time (Protime)PT. 27.9 SECONDS (11.7-14.9)
[2019-11-14] MEDS: Gabapentin 300 MG Capsule PO ×2 (08:26→16:38)
[2019-11-14] MEDS: oxyCODONE 5 MG Tablet PO ×3 (10:31→20:53)
--- NOTE | 2019-11-14 11:22 | VDLE_ITS ---
Reason For Study: Pain RIGHT LEFT GSV is normal. GSV is normal. CFV is compressible, spontaneous, phasic, CFV and SFJ visualized with color only. competent and demonstrates normal Normal venousflow noted. augmentation. FV is compressible, spontaneous, phasic, FV is compressible, spontaneous, phasic, competent and demonstrates normal competent and demonstrates normal augmentation. augmentation. POP V is compressible, spontaneous, phasic, POP V is compressible, spontaneous, phasic, competent and demonstrates normal competent and demonstrates normal augmentation. augmentation. T/P Trunk is compressible. T/P Trunk is compressible. PTV is compressible. PTV is compressible. LT PerV is compressible. RT PerV is compressible. Procedure Exam performed portable in patient room. A preliminary report was called and/or faxed to TCU. Interpretation Summary Deep veins of the lower extremities are bilaterally patent and compressible segmentally. There is no evidence of deep vein thrombosis on either side. Valvular competence appears intact within the proximal deep venous systems bilaterally. The great saphenous veins appear bilaterally patent and compressible segmentally. Ordering Physician: Keith Joseph Referring Physician: Daija Douglas Performed By: Nohemi Juárez RVT
[2019-11-14] MEDS: Ipratropium/Albuterol Sulfate 3 ML AMPUL.NEB INHALATION (14:00)
[2019-11-14 14:53] VITALS: BP 140/65; PULSE 60; RESP 20; TEMP 36.3; O2SAT 96
--- NOTE | 2019-11-14 15:00 | NURSING ---
called vascular to check on doppler study, they reported that they will try to come up this afternoon, but might be tomorrow morning
[2019-11-14 17:52] VITALS: PULSE 62
[2019-11-14] MEDS: Gabapentin 300 MG Capsule 600 MG PO (20:54)
[2019-11-14] MEDS: Mirtazapine 15 MG Tablet PO (20:55)
[2019-11-14] MEDS: Atorvastatin Calcium 40 MG Tablet PO (20:55)
[2019-11-14] MEDS: Tamsulosin HCl 0.4 MG Capsule PO (20:56)
[2019-11-14] MEDS: Benzonatate 100 MG Capsule PO (21:09)
[2019-11-15 05:48] VITALS: BP 137/70; PULSE 64; RESP 18; TEMP 36.6; O2SAT 92
[2019-11-15] MEDS: oxyCODONE 5 MG Tablet PO ×4 (05:51→21:13)
[2019-11-15] MEDS: Umeclidinium Bromide Inhaler 1 PUFF IH (05:51)
[2019-11-15] MEDS: Fluticasone/Salmeterol 232-14 Inhaler 1 PUFF IH ×2 (05:51→17:11)
[2019-11-15] MEDS: Glucerna Shake 120 ML LIQUID PO ×4 (05:51→21:12)
[2019-11-15] MEDS: Lidocaine 5% Patch 2 PATCH TOPICAL (05:53)
[2019-11-15] MEDS: Finasteride 5 MG Tablet PO (05:55)
[2019-11-15] MEDS: Dicyclomine 10 MG Capsule 20 MG PO ×3 (05:56→16:07)
[2019-11-15] MEDS: Pantoprazole Sodium 40 MG Tablet PO (05:56)
[2019-11-15] MEDS: Sertraline 100 MG Tablet PO (05:56)
[2019-11-15] MEDS: Acetaminophen 500 MG Tablet 1000 MG PO ×3 (05:56→21:14)
[2019-11-15 05:57] VITALS: BP 137/70; PULSE 64
[2019-11-15] MEDS: amLODIPine 5 MG Tablet PO (05:57)
[2019-11-15] MEDS: carBAMazepine 200 MG Tablet PO ×2 (05:57→17:13)
[2019-11-15] MEDS: Metoprolol Tartrate 25 MG Tablet PO ×2 (05:57→17:11)
[2019-11-15] MEDS: Clopidogrel Bisulfate 75 MG Tablet PO (05:58)
[2019-11-15 07:00] VITALS: PULSE 72; RESP 18; O2SAT 93
[2019-11-15] MEDS: Ipratropium/Albuterol Sulfate 3 ML AMPUL.NEB INHALATION ×2 (07:00→19:05)
[2019-11-15] MEDS: Gabapentin 300 MG Capsule PO ×2 (08:03→16:07)
--- NOTE | 2019-11-15 11:41 | NURSING ---
wound photo: left groin
[2019-11-15] MEDS: Benzonatate 100 MG Capsule PO (12:03)
--- NOTE | 2019-11-15 12:09 | CASEMGMT ---
Addendum entered by Patricia Cifuentes 11/18/19 13:20: Notified on this date [facility] is unable to staff pt. Referred to [facility] whom accepted pt with SOC 11/19 for wound vac. Addendum entered by Patricia Cifuentse 11/15/19 14:13: [facility] cannot staff pt's needs. Referred back to [facility]. Addendum entered by Patricia Cifuentes 11/15/19 12:21: Wade Quick C.M. contacted and pt has services with [facility]. Referral made to them for skilled services. Addendum entered by Patricia Cifuentes 11/15/19 12:11: Notified Ynes Yusuf and she will restart services. Original Note: Social Work Insurance issued LCD 11/16, DC 11/17. Spoke with pt and ex . Notified wound nurse. Pt will DC home with wound vac until f/u appt with surgeon 11/24. Exwife able to assist when HHC is not in the home. Referred to [facility] PT/OT/SN. exwife to transport pt home. Referred to [facility] for hospital bed and FWW. Plan: DC home 11/17 with wound vac, [facility] PT/OT/SN, hospital bed and FWW. MINA IsaacW
[2019-11-15] MEDS: 0.9% Saline Lock 10 ML Syringe IV ×2 (13:40→21:12)
--- NOTE | 2019-11-15 15:15 | DCINST_ITS ---
- Discharge Diagnoses Current Active Problems: Current Active and Chronic Problems Debility (Acute) Deep incisional surgical site infection (Acute) Lupus anticoagulant disorder (Chronic) Coronary artery disease (Chronic) Chronic obstructive pulmonary disease (Chronic) Diabetes mellitus (Chronic) Seizure disorder (Chronic) Peripheral arterial occlusive disease (Chronic) Asthma (Chronic) Hyperlipidemia (Chronic) Obstructive sleep apnea (Chronic) You will use the following diet at home:: No restrictions, Regular Your food should be the consistency of: Regular Your liquids should be the consistency of: Regular/Thin Discharge Activity: Return to Normal Activity, May Shower, Use Walker Weight Bearing Status: Weight bearing as tolerated Call your doctor if you observe: Fever of 101 or Higher, Inability to urinate, Inability to have a bowel movement, Shortness of breath, Chest pain, Uncontrolled pain Allergies/Adverse Reactions: Allergies No Known Allergies Allergy (Verified 10/16/19 16:30) Medications to take at Discharge Albuterol Inhaler [Ventolin Hfa] 2 puff INHALATION Q4H PRN PRN 01/26/14 Gabapentin [Neurontin] 300 mg PO 0900,1600 01/26/14 Tamsulosin HCl [Flomax] 0.4 mg PO QHS 01/26/14 Pantoprazole Sodium [Protonix] 40 mg PO DAILY 09/08/14 Finasteride [Proscar] 5 mg PO DAILY 11/14/14 Atorvastatin Calcium [Lipitor] 40 mg PO QHS 09/23/15 Metoprolol Tartrate [Lopressor (beta joel)] 25 mg PO BID 12/02/15 Sertraline HCl [Zoloft] 100 mg PO DAILY 12/02/15 Lidocaine 4% Topical 2 patch SQ DAILY 08/16/19 Mirtazapine [Remeron] 15 mg PO QHS 08/16/19 Nicotine Patch 21 mg SQ DAILY 08/16/19 Acetaminophen [Acetaminophen Extra Strength] 1,000 mg PO Q6H 10/25/19 Amlodipine [Norvasc] 5 mg PO DAILY 10/25/19 Benzonatate [Tessalon Perle] 100 mg PO TID PRN PRN 10/25/19 Clopidogrel Bisulfate [Plavix] 75 mg PO DAILY 10/25/19 Fluticasone/Umeclidin/Vilanter [Trelegy Ellipta 100-62.5-25] 1 puff INHALATION DAILY 10/25/19 Gabapentin [Neurontin] 600 mg PO QHS 10/25/19 Guaifenesin/Dextromethorphan [Guaifenesin-Dm 100-10 mg/5 ml] 5 ml PO Q4H PRN 10/25/19 Ipratropium/Albuterol Sulfate [Duoneb] 3 ml INHALATION Q6H.RT PRN 10/25/19 Tizanidine HCl 2 mg PO Q8H PRN 10/25/19 hydrOXYzine tablet [Atarax tablet] 50 mg PO TID PRN 10/25/19 Albuterol Aerosols [Ventolin Aerosols] 2.5 mg INHALATION Q6H PRN PRN 10/26/19 Carbamazepine [Tegretol] 200 mg PO Q12H 10/26/19 Dicyclomine HCl [Bentyl] 20 mg PO TIDAC 10/26/19 Oxycodone [Oxyir] 5 mg PO Q6H PRN PRN 7 Days #42 tablet 11/15/19 Warfarin [Coumadin] 7.5 mg PO DAILY@1700 #30 tab 11/15/19 The following prescriptions were given: Warfarin [Coumadin] 7.5 mg PO DAILY@1700 #30 tab Transmission Status: Pending to [facility] Oxycodone [Oxyir] 5 mg PO Q6H PRN PRN 7 Days #42 tablet PRN Reason: Pain Score 4-10/10 Transmission Status: Sent to [facility] Primary Care Physician: Daija Douglas MD [Primary Care Provider] - Please follow up with your Primary Care Physician in: 1 week. Test Results: Test results from this visit will be discussed in further detail at your follow- up appointment, if applicable. Please Follow Up With: Tha Mathews, Vascular Clinician When: 2 weeks. Please Follow Up With: Vascular Tracer Clerk [facility] ([facility]) When: 2 weeks. Please Follow Up With: Ryan Villa MD ([facility]) When: 2 weeks. Proposed Discharge Date: 11/18/19
--- NOTE | 2019-11-15 15:16 | PCM.DC.SUM ---
Discharge Date and Diagnosis - Problem List Patient Problems: Active and Suspected Problems Debility (Acute) Deep incisional surgical site infection (Acute) Date of Admission: 10/25/19 Date of Discharge: 11/18/19 - Primary Discharge Diagnosis Acute Problems: Active Problems Debility (Acute) Deep incisional surgical site infection (Acute) - Secondary Discharge Diagnosis Chronic Problems: Chronic Problems Lupus anticoagulant disorder (Chronic) Coronary artery disease (Chronic) Chronic obstructive pulmonary disease (Chronic) Diabetes mellitus (Chronic) Seizure disorder (Chronic) Peripheral arterial occlusive disease (Chronic) Asthma (Chronic) Hyperlipidemia (Chronic) Obstructive sleep apnea (Chronic) Peripheral vascular disease (Chronic) Status post stent Anxiety (Chronic) COPD (chronic obstructive pulmonary disease) with emphysema (Chronic) Hypertension (Chronic) Chronically on opiate therapy (Chronic) Chronic use of fentanyl patch 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 (Chronic) On warfarin BPH (benign prostatic hyperplasia) (Chronic) Chronic tamsulosin and finasteride Ulcerative colitis (Chronic) Chronic sulfasalazine, Bentyl Tobacco abuse (Chronic) Hospital Course and Treatment Imaging Results: 10/26/19 02:58 Diet: Regular Diet Is pt able to select menu?: Yes Labs (Last 48 Hours) 11/14/19 05:43 PT 27.9 H INR 2.7 Consultations 10/26/19 02:37 Consult: Onc/Wound/floor cleaner Routine Comment: Reason for Consult:: wound vac Operations: None Procedures: None Summary of Care Provided: The patient is a 69 year old Male with below past medical history hospitalized for left groin surgical wound infection, underwent debridement with placement sartorius flap, admitted to TCU with debility, here for rehabilitation, strengthening, buttermaker continuous churn intravenous antibiotics, prior to discharge home alone. Discharge home alone with wound vac, [facility] PT/OT/SN, Hospital Bed, Front Wheeled Walker. Patient Problems: Active and Suspected Problems Debility (Acute) Deep incisional surgical site infection (Acute) - Physical Exam Vitals/I&O's: Vital Signs Temp Pulse Resp BP Pulse Ox 97.9 F 72 18 137/70 H 93 11/15/19 05:48 11/15/19 07:00 11/15/19 07:00 11/15/19 05:57 11/15/19 07:00 Oxygen Flow Rate (L/min) 2 Oxygen Delivery Method Room Air Weight: 82.185 kg Body Mass Index (BMI) 25.1 Finger Stick Blood Glucose 85 Intake and Output for Last 24 Hours 11/13/19 11/14/19 11/15/19 23:59 23:59 23:59 Intake Total 899.17 / 899.17 899.79 / 899.79 700 / 700 Output Total 525 / 525 Balance 899.17 / 899.17 899.79 / 899.79 175 / 175 Current Medications Acetaminophen (Tylenol) 1,000 mg PO TID [facility] Last Admin: 11/15/19 13:39 Dose: 1,000 mg Documented by: Albuterol Sulfate (Ventolin Aerosols) 2.5 mg INHALATION Q6H PRN PRN PRN Reason: Wheezing/Shortness of Breath Albuterol/Ipratropium (Duoneb) 3 ml INHALATION Q6HWA.RT [facility] Last Admin: 11/15/19 07:00 Dose: 3 ml Documented by: Amlodipine Besylate (Norvasc) 5 mg PO DAILY [facility] Last Admin: 11/15/19 05:57 Dose: 5 mg Documented by: Atorvastatin Calcium (Lipitor) 40 mg PO QHS [facility] Last Admin: 11/14/19 20:55 Dose: 40 mg Documented by: Benzonatate (Tessalon Perle) 100 mg PO TID PRN PRN PRN Reason: COUGH Last Admin: 11/15/19 12:03 Dose: 100 mg Documented by: Carbamazepine (Tegretol) 200 mg PO Q12 [facility] Last Admin: 11/15/19 05:57 Dose: 200 mg Documented by: Clopidogrel Bisulfate (Plavix) 75 mg PO DAILY [facility] Last Admin: 11/15/19 05:58 Dose: 75 mg Documented by: Dicyclomine HCl (Bentyl) 20 mg PO TIDAC [facility] Last Admin: 11/15/19 11:04 Dose: 20 mg Documented by: Finasteride (Proscar) 5 mg PO DAILY [facility] Last Admin: 11/15/19 05:55 Dose: 5 mg Documented by: Gabapentin (Neurontin) 300 mg PO 0900,1600 [facility] Last Admin: 11/15/19 08:03 Dose: 300 mg Documented by: Gabapentin (Neurontin) 600 mg PO QHS [facility] Last Admin: 11/14/19 20:54 Dose: 600 mg Documented by: Guaifenesin (Robitussin Dm) 5 ml PO Q4H PRN PRN Last Admin: 11/08/19 23:37 Dose: 5 ml Documented by: Heparin Sodium (Beef Lung) () 50 units IV UD PRN PRN Reason: PICC Line Heparin Flush Hydroxyzine HCl (Atarax Tablet) 50 mg PO TID PRN PRN PRN Reason: ITCHING Sodium Chloride () 250 mls @ 15 mls/hr IV .[id number] PRN PRN Reason: Saline Flush Last Infusion: 11/14/19 20:59 Dose: 0 mls/hr Documented by: Sodium Chloride () 250 mls @ 15 mls/hr IV .[id number] PRN PRN Reason: Additional IVPB Infusion Piperacillin Sod/Tazobactam (Sod 3.375 gm/ Sodium Chloride) 50 mls @ 12.5 mls/hr IV Q8 [facility] Stop: 11/16/19 23:59 Last Admin: 11/15/19 13:39 Dose: 12.5 mls/hr Documented by: Lidocaine (Lidoderm Patch) 2 patch TOPICAL DAILY [facility] Last Admin: 11/15/19 05:53 Dose: 2 patch Documented by: Lidocaine HCl (Xylocaine 2% Jelly) 1 applic TOPICAL Q6H PRN PRN; Protocol PRN Reason: Pain Score 1-1010 Last Admin: 10/26/19 01:18 Dose: 1 applic Documented by: Metoprolol Tartrate (Lopressor (Beta Savannah)) 25 mg PO BID [facility] Last Admin: 11/15/19 05:57 Dose: 25 mg Documented by: Mirtazapine (Remeron) 15 mg PO QHS [facility] Last Admin: 11/14/19 20:55 Dose: 15 mg Documented by: Nicotine (Nicoderm Cq (Pbkc)) 21 mg TRANSDERM. DAILY [facility] Last Admin: 11/15/19 05:57 Dose: 21 mg Documented by: Nutritional Formula (Lactose Free) (Glucerna Shake) 120 ml PO 4X/DAY [facility] Last Admin: 11/15/19 11:05 Dose: 120 ml Documented by: Oxycodone HCl (Oxyir) 5 mg PO Q4H PRN PRN PRN Reason: Pain Score 4-10/10 Last Admin: 11/15/19 11:04 Dose: 5 mg Documented by: Pantoprazole Sodium (Protonix) 40 mg PO DAILY [facility] Last Admin: 11/15/19 05:56 Dose: 40 mg Documented by: Fluticasone/Salmeterol (Fluticasone-Salmeterol 232-14) 1 puff IH Q12 [facility] Last Admin: 11/15/19 05:51 Dose: 1 puff Documented by: Senna/Docusate Sodium (Senokot-S, Brittany-Colace) 2 tablet PO BID [facility] Last Admin: 11/15/19 05:58 Dose: Not Given Documented by: Sertraline HCl (Zoloft) 100 mg PO DAILY [facility] Last Admin: 11/15/19 05:56 Dose: 100 mg Documented by: Sodium Chloride () 10 - 40 ml IV UD PRN PRN Reason: Open End PICC Flush Last Admin: 11/15/19 13:40 Dose: 20 ml Documented by: Sodium Chloride (0.9% Nacl (Sterile) Posiflush) 10 - 40 ml IV UD PRN PRN Reason: Port access or dressing change Tamsulosin HCl (Flomax) 0.4 mg PO QHS [facility] Last Admin: 11/14/19 20:56 Dose: 0.4 mg Documented by: Tizanidine HCl (Zanaflex) 2 mg PO Q8H PRN PRN PRN Reason: Muscle Spasms Last Admin: 10/30/19 08:49 Dose: 2 mg Documented by: Umeclidinium Wayne (Incruse Ellipta Inhaler) 1 puff IH DAILY [facility] Last Admin: 11/15/19 05:51 Dose: 1 puff Documented by: Warfarin Sodium (Coumadin (Pbkc)) 7.5 mg PO DAILY@1700 [facility] Last Admin: 11/14/19 16:39 Dose: 7.5 mg Documented by: Discharge Diet: No Restrictions Discharge Activity: Return to Normal Activity, May Shower, Use Walker Weight Bearing Status: Weight bearing as tolerated Call your doctor if you observe: Fever of 101 or Higher, Inability to urinate, Inability to have a bowel movement, Shortness of breath, Chest pain, Uncontrolled pain Home Medications: Medications to take at Discharge Albuterol Inhaler [Ventolin Hfa] 2 puff INHALATION Q4H PRN PRN 01/26/14 Gabapentin [Neurontin] 300 mg PO 0900,1600 01/26/14 Tamsulosin HCl [Flomax] 0.4 mg PO QHS 08/10/14 Pantoprazole Sodium [Protonix] 40 mg PO DAILY 09/08/14 Finasteride [Proscar] 5 mg PO DAILY 11/14/14 Atorvastatin Calcium [Lipitor] 40 mg PO QHS 09/23/15 Metoprolol Tartrate [Lopressor (beta savannah)] 25 mg PO BID 12/02/15 Sertraline HCl [Zoloft] 100 mg PO DAILY 12/02/15 Lidocaine 4% Topical 2 patch SQ DAILY 08/16/19 Mirtazapine [Remeron] 15 mg PO QHS 08/16/19 Nicotine Patch 21 mg SQ DAILY 08/16/19 Acetaminophen [Acetaminophen Extra Strength] 1,000 mg PO Q6H 10/25/19 Amlodipine [Norvasc] 5 mg PO DAILY 10/25/19 Benzonatate [Tessalon Perle] 100 mg PO TID PRN PRN 10/25/19 Clopidogrel Bisulfate [Plavix] 75 mg PO DAILY 10/25/19 Fluticasone/Umeclidin/Vilanter [Trelegy Ellipta 100-62.5-25] 1 puff INHALATION DAILY 10/25/19 Gabapentin [Neurontin] 600 mg PO QHS 10/25/19 Guaifenesin/Dextromethorphan [Guaifenesin-Dm 100-10 mg/5 ml] 5 ml PO Q4H PRN 10/25/19 Ipratropium/Albuterol Sulfate [Duoneb] 3 ml INHALATION Q6H.RT PRN 10/25/19 Tizanidine HCl 2 mg PO Q8H PRN 10/25/19 hydrOXYzine tablet [Atarax tablet] 50 mg PO TID PRN 10/25/19 Albuterol Aerosols [Ventolin Aerosols] 2.5 mg INHALATION Q6H PRN PRN 10/26/19 Carbamazepine [Tegretol] 200 mg PO Q12H 10/26/19 Dicyclomine HCl [Bentyl] 20 mg PO TIDAC 10/26/19 Oxycodone [Oxyir] 5 mg PO Q6H PRN PRN 7 Days #42 tablet 11/15/19 Warfarin [Coumadin] 7.5 mg PO DAILY@1700 #30 tab 11/15/19 Following Prescrptions Were Given to Patient: Warfarin [Coumadin] 7.5 mg PO DAILY@1700 #30 tab Transmission Status: Pending to [facility] Oxycodone [Oxyir] 5 mg PO Q6H PRN PRN 7 Days #42 tablet PRN Reason: Pain Score 4-10/10 Transmission Status: Sent to [facility] Primary Care Physician: Daija Douglas MD [Primary Care Provider] - Please follow up with your Primary Care Physician in: 1 week. Please Follow Up With: Tha Mathews, Vascular Clinician When: 2 weeks. Please Follow Up With: Vascular Shoe Parts [facility] ([facility]) When: 2 weeks. Please Follow Up With: Ryan Villa MD ([facility]) When: 2 weeks. Disposition: Home with Home Health Minutes spent on discharge:: 35 Patient Condition:: Stable Medical Necessity - Tobacco Use Smoking Status: Former smoker Tobacco Use: Cigarettes Meaningful Use Info Meaningful Use Diagnoses (Choose all that apply): None applicable
[2019-11-15 16:00] VITALS: BP 144/68; PULSE 81; RESP 18; TEMP 36.6; O2SAT 96
[2019-11-15 17:11] VITALS: BP 144/68; PULSE 81
[2019-11-15] MEDS: Senna/Docusate Sodium 1 Tablet 2 TABLET PO (17:12)
[2019-11-15 19:05] VITALS: PULSE 72; RESP 18
[2019-11-15] MEDS: Mirtazapine 15 MG Tablet PO (21:13)
[2019-11-15] MEDS: Tamsulosin HCl 0.4 MG Capsule PO (21:13)
[2019-11-15] MEDS: Atorvastatin Calcium 40 MG Tablet PO (21:14)
[2019-11-15] MEDS: Gabapentin 300 MG Capsule 600 MG PO (21:14)
--- NOTE | 2019-11-15 22:39 | NURSING ---
Attempted to call patient's ex , Giovana per patient and Giovana's request. No answer, no voice message given due to mailbox being full.
[2019-11-16 05:30] VITALS: BP 128/66; PULSE 60; RESP 18; TEMP 36.3; O2SAT 91
[2019-11-16] MEDS: Lidocaine 5% Patch 2 PATCH TOPICAL (05:31)
[2019-11-16] MEDS: oxyCODONE 5 MG Tablet PO ×3 (05:32→21:44)
[2019-11-16] MEDS: Glucerna Shake 120 ML LIQUID PO ×4 (05:35→21:38)
[2019-11-16] MEDS: Umeclidinium Bromide Inhaler 1 PUFF IH (05:35)
[2019-11-16] MEDS: Fluticasone/Salmeterol 232-14 Inhaler 1 PUFF IH ×2 (05:35→17:31)
[2019-11-16] MEDS: Finasteride 5 MG Tablet PO (05:36)
[2019-11-16] MEDS: Acetaminophen 500 MG Tablet 1000 MG PO ×3 (05:36→21:31)
[2019-11-16] MEDS: carBAMazepine 200 MG Tablet PO ×2 (05:37→17:29)
[2019-11-16] MEDS: Senna/Docusate Sodium 1 Tablet 2 TABLET PO ×2 (05:37→17:29)
[2019-11-16] MEDS: Sertraline 100 MG Tablet PO (05:37)
[2019-11-16 05:38] VITALS: BP 128/66; PULSE 60
[2019-11-16] MEDS: Metoprolol Tartrate 25 MG Tablet PO ×2 (05:38→17:36)
[2019-11-16] MEDS: Pantoprazole Sodium 40 MG Tablet PO (05:38)
[2019-11-16] MEDS: Dicyclomine 10 MG Capsule 20 MG PO ×3 (05:38→17:31)
[2019-11-16] MEDS: Clopidogrel Bisulfate 75 MG Tablet PO (05:39)
[2019-11-16] MEDS: amLODIPine 5 MG Tablet PO (05:39)
[2019-11-16 07:03] LABS: Absolute Lymphocyte Count 1.44 X10^3/uL (0.83-4.51); Absolute Neutrophil Count 3.1 X10^3/uL (2.0-7.7); Basophil% 1.8 % (0-1); Eosinophil# 0.47 X10^3/uL; Eosinophils% 8.4 % (0-5); Hematocrit 30.8 % (40-54); Hemoglobin 8.9 g/dL (13.0-16.5); Lymphocyte # 1.44 X10^3/ul (4.0); Lymphocyte % 25.8 % (19-41); Mean Corp Hgb Conc 28.9 g/dL (32-36); Mean Corpuscular Hgb 26.6 pg (27.0-32.0); Mean Corpuscular Volume 91.9 fL (80-94); Mean Platelet Vol. 9.9 fl (6.2-12.0); Monocyte# 0.47 X10^3/uL; Monocyte% 8.4 % (0-10); NRBC Flagged by Analyzer 0 % (0-5); Neutrophil # 3.09 X10^3/uL (2.7-7.7); Neutrophil % 55.2 % (47-70); Platelet Count 310 K/mm3 (150-450); RBC Distribution Width CV 15.5 % (11.6-14.6); RBC Distribution Width SD 52.4 fl (35.1-43.9); Red Blood Count 3.35 M/mm3 (4.6-6.2); White Blood Count 5.6 K/mm3 (4.4-11.0)
[2019-11-16 07:40] LABS: Anion Gap 6 (5-15); BUN 22 mg/dL (7-18); BUN/Creat Ratio 25.5 RATIO (10-20); Calcium,Total 8.9 mg/dL (8.5-10.1); Chloride 107 mmol/L (98-107); Creatinine, Serum 0.86 mg/dL (0.70-1.30); EST Glomerular Filtration Rate 93 mL/min (>60); Est Glom Filt Rate - Afr Amer 113 mL/min (>60); Estimated Creatinine Clearance 77.33 ml/min; Glucose 109 mg/dL (74-106); Potassium 3.7 mmol/L (3.5-5.1); Sodium Level 141 mmol/L (136-145)
[2019-11-16] MEDS: Gabapentin 300 MG Capsule PO ×2 (10:33→17:32)
[2019-11-16] MEDS: 0.9% Saline Lock 10 ML Syringe IV (11:06)
[2019-11-16] MEDS: Ipratropium/Albuterol Sulfate 3 ML AMPUL.NEB INHALATION (13:30)
[2019-11-16 13:31] VITALS: PULSE 68; RESP 16; O2SAT 91
[2019-11-16 14:21] VITALS: BP 114/72; PULSE 71; RESP 16; TEMP 36.7; O2SAT 92
[2019-11-16 17:36] VITALS: BP 114/72; PULSE 71
[2019-11-16] MEDS: Tamsulosin HCl 0.4 MG Capsule PO (21:30)
[2019-11-16] MEDS: Mirtazapine 15 MG Tablet PO (21:31)
[2019-11-16] MEDS: Gabapentin 300 MG Capsule 600 MG PO (21:31)
[2019-11-16] MEDS: Atorvastatin Calcium 40 MG Tablet PO (21:33)
[2019-11-17] MEDS: Lidocaine 5% Patch 2 PATCH TOPICAL (05:09)
[2019-11-17 05:10] VITALS: BP 124/64; PULSE 61; RESP 16; TEMP 36.9; O2SAT 92
[2019-11-17 05:11] VITALS: BP 124/64; PULSE 61
[2019-11-17] MEDS: amLODIPine 5 MG Tablet PO (05:11)
[2019-11-17] MEDS: Metoprolol Tartrate 25 MG Tablet PO ×2 (05:11→17:31)
[2019-11-17] MEDS: Dicyclomine 10 MG Capsule 20 MG PO ×3 (05:12→15:34)
[2019-11-17] MEDS: Umeclidinium Bromide Inhaler 1 PUFF IH (05:13)
[2019-11-17] MEDS: Finasteride 5 MG Tablet PO (05:13)
[2019-11-17] MEDS: Glucerna Shake 120 ML LIQUID PO ×4 (05:13→19:51)
[2019-11-17] MEDS: Fluticasone/Salmeterol 232-14 Inhaler 1 PUFF IH ×2 (05:13→17:31)
[2019-11-17] MEDS: Acetaminophen 500 MG Tablet 1000 MG PO ×3 (05:15→19:50)
[2019-11-17] MEDS: Clopidogrel Bisulfate 75 MG Tablet PO (05:15)
[2019-11-17] MEDS: Sertraline 100 MG Tablet PO (05:16)
[2019-11-17] MEDS: carBAMazepine 200 MG Tablet PO ×2 (05:17→17:31)
[2019-11-17] MEDS: oxyCODONE 5 MG Tablet PO ×3 (05:23→19:48)
[2019-11-17] MEDS: Pantoprazole Sodium 40 MG Tablet PO (05:30)
--- NOTE | 2019-11-17 05:32 | NURSING ---
0530- PICC line DC'd to [facility] per orders. PICC length 45cm. Scant blood at site. Occlusive dressing applied and Pt instructed to lay flat until 0600. Pt tolerated well.
[2019-11-17] MEDS: Gabapentin 300 MG Capsule PO ×2 (09:51→15:35)
[2019-11-17 10:00] VITALS: PULSE 67; RESP 14; O2SAT 91
[2019-11-17] MEDS: Benzonatate 100 MG Capsule PO ×2 (11:30→19:51)
[2019-11-17 14:40] VITALS: BP 138/69; PULSE 68; RESP 16; TEMP 36.4; O2SAT 94
[2019-11-17 17:31] VITALS: PULSE 68
[2019-11-17] MEDS: Senna/Docusate Sodium 1 Tablet 2 TABLET PO (17:31)
[2019-11-17] MEDS: Tamsulosin HCl 0.4 MG Capsule PO (19:52)
[2019-11-17] MEDS: Atorvastatin Calcium 40 MG Tablet PO (19:52)
[2019-11-17] MEDS: Gabapentin 300 MG Capsule 600 MG PO (19:53)
[2019-11-17] MEDS: Mirtazapine 15 MG Tablet PO (19:53)
[2019-11-18 04:47] VITALS: BP 143/60; PULSE 63; RESP 16; TEMP 36.2; O2SAT 94
[2019-11-18] MEDS: Fluticasone/Salmeterol 232-14 Inhaler 1 PUFF IH ×2 (04:49→17:20)
[2019-11-18] MEDS: oxyCODONE 5 MG Tablet PO ×3 (04:50→21:08)
[2019-11-18] MEDS: Umeclidinium Bromide Inhaler 1 PUFF IH (04:50)
[2019-11-18] MEDS: Benzonatate 100 MG Capsule PO (04:50)
[2019-11-18] MEDS: Glucerna Shake 120 ML LIQUID PO ×4 (04:51→21:03)
[2019-11-18] MEDS: Finasteride 5 MG Tablet PO (04:51)
[2019-11-18] MEDS: Lidocaine 5% Patch 2 PATCH TOPICAL (04:51)
[2019-11-18] MEDS: Pantoprazole Sodium 40 MG Tablet PO (04:51)
[2019-11-18 04:53] VITALS: BP 143/60; PULSE 63
[2019-11-18] MEDS: Metoprolol Tartrate 25 MG Tablet PO ×2 (04:53→17:20)
[2019-11-18] MEDS: Dicyclomine 10 MG Capsule 20 MG PO ×3 (04:53→17:17)
[2019-11-18] MEDS: Acetaminophen 500 MG Tablet 1000 MG PO ×3 (04:54→21:04)
[2019-11-18] MEDS: Sertraline 100 MG Tablet PO (04:54)
[2019-11-18] MEDS: carBAMazepine 200 MG Tablet PO ×2 (04:55→17:20)
[2019-11-18] MEDS: amLODIPine 5 MG Tablet PO (04:59)
[2019-11-18] MEDS: Clopidogrel Bisulfate 75 MG Tablet PO (04:59)
[2019-11-18 06:00] LABS: International Normalized Ratio 2.4; Prothrombin Time (Protime)PT. 25.5 SECONDS (11.7-14.9)
[2019-11-18 07:01] VITALS: O2SAT 94
--- NOTE | 2019-11-18 07:33 | NURSING ---
Pt daughter María Montana called around 8:30 pm wondering if she could speak with someone about her father being discharged on 11/17 at noon. This nurse gave pt daughter social science manager extension and told her I would leave a message with social science manager.
[2019-11-18] MEDS: Gabapentin 300 MG Capsule PO ×2 (08:48→17:17)
[2019-11-18 08:51] VITALS: PULSE 57; RESP 18; O2SAT 90
--- NOTE | 2019-11-18 09:10 | NURSING ---
pt was given TCU questionare for DC. pt stating he not ready to go home, message left with Patricia LYNN. Pt would like to speak with her.
--- NOTE | 2019-11-18 10:43 | NURSING ---
Wound nurse changed wound vac to LT inner groin area.
--- NOTE | 2019-11-18 11:25 | NURSING ---
wound photo: left groin
--- NOTE | 2019-11-18 12:01 | NURSING ---
Pt switched over to the home VAC. reviewed alarms, how to plug in VAC, and how to return the VAC. pt very distracted about how he feels he really cannot walk and doesn't feel like he should be going home. Pt is a standby assist with a wheeled walker. Proof of delivery signed by pt and faced to [employer] per this nurse.
--- NOTE | 2019-11-18 13:21 | CASEMGMT ---
Addendum entered by Patricia Cifuentes 11/18/19 16:52: Spoke with pt and exW several times to reiterated below information. Pt choosing not to DC on this date and exW not to burr picker pt. Reexplained pt would have to pay privately for this date if insurance does not cover. Both parties state they do not have the funds to pay privately, again encouraged at DC. At 16:47, pt called SW into room and agreed to transfer to SNF. Explained pt would not be able to transfer on this date, still would need to pay privately, pt understood. Provided SNF list to pt and indicated those with past positive COVID pts per pt request. Pt to speak with exW on referrals to make on the following day. Notified [facility]. Will continue to follow. Original Note: Social Work Received phone calls from pt, dtr, seblefe and Ynes Yusuf about concerns pt has with DC home on this date. Spoke with each democrat to explain pt was issued LCD from insurance and for pt to remain until f/u 11/24, pt would need to pay privately $660/day as TCU is not Medicaid certified. Explained [facility] is ordered and can assist and exwife explained she could assist if needed when spoke with her 11/14. ExW inquired about appeal rights. Explained pt was given appeal rights when [employer] was issued 11/14 and he did not file an appeal, and the appeal would not be valid if filed on this date. ExW insistent on filing an appeal - Rocío contact information given. Rocío opened appeal case #[id number]. NATHANIEL spoke with Rocío to clarify appeal - Rocío stated once [employer] and medical information is reviewed, they will determine if appeal is valid. Clinical information faxed per request. [employer] contacted SW that hospital beds are on back order until 11/21, despite confirmation given to SW 11/14 on bed delivery on this date. Explained to pt if he does not want to return home, he can transfer to another SNF under [facility] Medicaid, but since he still has to DC on this date, if there is not an accepting facility pt would still be liable for $660/day. Pt denied as he is concerned about COVID in SNFs and cannot pay privately. explained to pt about hospital bed and if there was another alternative for sleeping arrangements at home. Pt stated the bed is too low, the couch is too low, but he has recliner chair he could sleep in. again, reiterated transfer to SNF. Pt will consider, but at this time plan is to DC home on this date. reiterated to pt he is able to complete ADLS independently and walking 200 ft with FWW. Will await [facility] outcome. Spoke with Will to confirm delivery of hospital bed to pt's home when received and FWW deliver to pt's room on this date. ExW to transport pt home. Patricia Cifuentes, MANAGER GROUP SERVICE TECH
[2019-11-18 13:51] VITALS: BP 149/67; PULSE 62; RESP 16; TEMP 36.8; O2SAT 94
[2019-11-18 17:20] VITALS: PULSE 62
[2019-11-18] MEDS: Tamsulosin HCl 0.4 MG Capsule PO (21:04)
[2019-11-18] MEDS: Gabapentin 300 MG Capsule 600 MG PO (21:04)
[2019-11-18] MEDS: Mirtazapine 15 MG Tablet PO (21:04)
[2019-11-18] MEDS: Atorvastatin Calcium 40 MG Tablet PO (21:04)
[2019-11-19 06:15] VITALS: BP 138/73; PULSE 69; RESP 16; TEMP 36.8; O2SAT 92
[2019-11-19] MEDS: Umeclidinium Bromide Inhaler 1 PUFF IH (06:18)
[2019-11-19] MEDS: Fluticasone/Salmeterol 232-14 Inhaler 1 PUFF IH ×2 (06:18→16:31)
[2019-11-19] MEDS: Glucerna Shake 120 ML LIQUID PO ×3 (06:19→16:32)
[2019-11-19] MEDS: Dicyclomine 10 MG Capsule 20 MG PO ×3 (06:20→16:31)
[2019-11-19] MEDS: oxyCODONE 5 MG Tablet PO ×3 (06:20→18:21)
[2019-11-19 06:21] VITALS: BP 138/73; PULSE 69
[2019-11-19] MEDS: Metoprolol Tartrate 25 MG Tablet PO ×2 (06:21→16:32)
[2019-11-19] MEDS: carBAMazepine 200 MG Tablet PO ×2 (06:22→16:32)
[2019-11-19] MEDS: Clopidogrel Bisulfate 75 MG Tablet PO (06:22)
[2019-11-19] MEDS: Acetaminophen 500 MG Tablet 1000 MG PO ×2 (06:22→13:46)
[2019-11-19] MEDS: Pantoprazole Sodium 40 MG Tablet PO (06:23)
[2019-11-19] MEDS: Sertraline 100 MG Tablet PO (06:23)
[2019-11-19] MEDS: Finasteride 5 MG Tablet PO (06:24)
[2019-11-19] MEDS: amLODIPine 5 MG Tablet PO (06:25)
--- NOTE | 2019-11-19 08:34 | CASEMGMT ---
Addendum entered by Patricia Cifuentes 11/19/19 18:50: Spoke with dtr and exw several times related to pt's insurance and DC decisions. Continued to explain the insurance is not covering pt's stay in TCU since 11/17 and pt agreed to transfer to [facility]. Family very adamant that pt will receive coverage from insurance - they have spoke to the insurance to indicate otherwise; however, SW nor CM have received any supporting documentation. Family's wishing pt remain in TCU and states pt cannot make his own decisions, and they refuse for him to leave TCU. Explained pt is able to make his own decisions - BIMS are 15/15 and there is not expert eval completed on pt, nor any Probate Court documents to support otherwise. Spoke with pt several times on his wishes and the facts on the insurance coverage. Reiterated if pt remains in TCU he will continue to be liable for $660/day, and pt stated he does not have the funds to pay for that. Pt ultimately decided, against his family's wishes, to transfer to [facility] on this date. Pt appreciative of SW and care provided from staff. Plan: DC 11/18 [facility] under Medicaid, Physician's w/c transport 6:30 pm. Addendum entered by Patricia Cifuentes 11/19/19 14:15: [facility] accepted pt for this date. Pt agreeable to transfer but wanted to wait until appeal. Rocío contacted that appeal was not submitted timely and pt is responsible for financial liability. Spoke with exW and dtr about above information. Exw having difficulty understanding TCU is not a Medicaid certified facility and pt cannot remain here and that is why pt would transfer to another SNF if he does not feel safe returning home. COBY spoke with exW as well explaining the insurance information and process. [facility] at 6:30 pm. IDT aware. PASRR completed. DC info faxed to [facility]. Original Note: Social Work Spoke with pt about SNF decision. Pt agreed for SW to refer to all facilitates without COVID. Referrals made. Will continue to follow. Patricia Cifuentes, MINA ASTORGAW
[2019-11-19] MEDS: Gabapentin 300 MG Capsule PO ×2 (09:09→16:31)
[2019-11-19 09:14] VITALS: PULSE 60; RESP 18; O2SAT 92
--- NOTE | 2019-11-19 14:28 | PCM.TXEXTCAR ---
- Diet 10/26/19 02:58 Diet: Regular Diet Is pt able to select menu?: Yes - Routine Orders/Code Status Suppository Type: Dulcolax 10mg Suppository Frequency: Daily PRN Code Status: Full Code - Wound(s) Left thigh Wound Type: Open Surgical Wound Dressing Change: home wound vac Left groin Wound Type: Open Surgical Wound Dressing Change: home wound vac intact Left medial thigh Wound Type: Surgical Incision Dressing Change: Dry Sterile Dressing Left pinky Wound Type: Abrasion Blisters left thigh Wound Type: blisters Dressing Change: Adaptic/DSD Left Inner thigh Wound Type: Abrasion Dressing Change: Mepilex 11/07 Left lower abdomen (above sutures) Wound Type: Open blister Dressing Change: adaptic w/DSD - Therapies Weight Bearing: Weight bearing as tolerated Extremity Affected:: Bilateral Lower - Problem/Diagnosis (1) Debility Status: Acute Current Visit: Yes (2) Deep incisional surgical site infection Status: Acute Current Visit: Yes (3) Lupus anticoagulant disorder Status: Chronic Current Visit: Yes (4) Coronary artery disease Status: Chronic Current Visit: Yes (5) Chronic obstructive pulmonary disease Status: Chronic Current Visit: Yes (6) Diabetes mellitus Status: Chronic Current Visit: Yes (7) Seizure disorder Status: Chronic Current Visit: Yes (8) Peripheral arterial occlusive disease Status: Chronic Current Visit: Yes (9) Asthma Status: Chronic Current Visit: Yes (10) Hyperlipidemia Status: Chronic Current Visit: Yes (11) Obstructive sleep apnea Status: Chronic Current Visit: Yes (12) Hypertension Status: Chronic Current Visit: No - Allergies/Procedures Done in Hospital Allergies/Adverse Reactions: Allergies No Known Allergies Allergy (Verified 10/16/19 16:30) - Type of Care/Length of Stay Estimated LOS: Convalescent Care Less Than 30 days Type of Care Needed: Intermediate Rehab Potential: Good Prognosis: Fair - Additional Orders/Day of Discharge Day of Discharge: 11/19/19 - Dietary and Speech Recommendations Dietitian Recommendations/Changes: Res does not want diet changed from Regular. - Follow Up Care Primary Care Physician: Daija Douglas MD [Primary Care Provider] - Please follow up with your Primary Care Physician in: 1 week. Please Follow Up With: Tha Mathews, Vascular Clinician When: 2 weeks. Please Follow Up With: Vascular Ink Technician [place] ([facility]) When: 2 weeks. Please Follow Up With: Ryan Villa MD ([facility]) When: 2 weeks. Please Follow Up With: Daija Douglas MD (PCP)
[2019-11-19 14:54] VITALS: BP 139/65; PULSE 69; RESP 22; TEMP 36.9; O2SAT 93
--- NOTE | 2019-11-19 16:21 | NURSING ---
attempted to give report to nurse at [facility] and alumnae secretary unable to get through, left number for nurse to call back for report on pt.
[2019-11-19 16:32] VITALS: PULSE 69
== END 2019-11-19 19:23 | disposition intermediate care facility (04) | DRG 949 ==
PROVIDERS: Admitting Provider Family Medicine Geriatric Medicine; PCP Internal Medicine; Visit Provider Family Medicine Geriatric Medicine
DX: T81.42XD Infection following a procedure, deep incisional surgical site, subsequent encounter (principal); K66.1 Hemoperitoneum; D68.62 Lupus anticoagulant syndrome; K51.90 Ulcerative colitis, unspecified, without complications; I10 Essential (primary) hypertension; G47.33 Obstructive sleep apnea (adult) (pediatric); E78.5 Hyperlipidemia, unspecified; E11.51 Type 2 diabetes mellitus with diabetic peripheral angiopathy without gangrene; J44.9 Chronic obstructive pulmonary disease, unspecified; I25.10 Atherosclerotic heart disease of native coronary artery without angina pectoris; B96.1 Klebsiella pneumoniae [K. pneumoniae] as the cause of diseases classified elsewhere; N40.0 Benign prostatic hyperplasia without lower urinary tract symptoms; F17.210 Nicotine dependence, cigarettes, uncomplicated; G40.909 Epilepsy, unspecified, not intractable, without status epilepticus; K21.9 Gastro-esophageal reflux disease without esophagitis; F32.9 Major depressive disorder, single episode, unspecified; F41.0 Panic disorder [episodic paroxysmal anxiety]; Y83.8 Other surgical procedures as the cause of abnormal reaction of the patient, or of later complication, without mention of misadventure at the time of the procedure
CPT/HCPCS: 36415; 80048; 85025; 85610; 87635; 93970; 94640; 97110; 97116; 97162; 97166; 97530; 97535; 97802; 99406; G2023; J7050; A4216; U0002

== ENCOUNTER 2019-12-16 15:40 | Emergency (ER) | payer MEDICARE, MEDICAID, SELFPAY ==
[2019-12-16 15:42] VITALS: BP 184/72; PULSE 64; RESP 18; TEMP 36.7; O2SAT 98; BMI 27.7
[2019-12-16 15:45] VITALS: BP 171/69
--- NOTE | 2019-12-16 17:05 | ED.DCSUM_ITS ---
History of Present Illness Chief Complaint: Edema Detail of Chief Complaint: Leg swelling and pain Informant: Patient Onset: Days Context: Gradual Onset Current Severity: Moderate Maximum Severity: Moderate Narrative: Patient presents secondary to left leg swelling and pain. He had surgery on November 24 to remove a blood clot and a stent in his leg. This was done by Dr. Villa at [facility]. Patient is currently on Coumadin. He states over the past couple of days has had increasing left leg pain and swelling. - Past Medical History (1) Anxiety Status: Chronic (2) Asthma Status: Chronic (3) BPH (benign prostatic hyperplasia) Status: Chronic Comment: Chronic tamsulosin and finasteride (4) COPD (chronic obstructive pulmonary disease) with emphysema Status: Chronic (5) 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 Status: Chronic Comment: On warfarin (6) Chronic obstructive pulmonary disease Status: Chronic (7) Diabetes mellitus Status: Chronic (8) Hyperlipidemia Status: Chronic (9) Hypertension Status: Chronic (10) Lupus anticoagulant disorder Status: Chronic (11) Obstructive sleep apnea Status: Chronic (12) Peripheral arterial occlusive disease Status: Chronic (13) Peripheral vascular disease Status: Chronic Comment: Status post stent (14) Seizure disorder Status: Chronic (15) Ulcerative colitis Status: Chronic Comment: Chronic sulfasalazine, Bentyl Past Medical History - Allergies and Home Meds Allergies/Adverse Reactions: Allergies No Known Allergies Allergy (Verified 10/16/19 16:30) Primary Care Physician: Daija Douglas MD [Primary Care Provider] - Prior records reviewed: Yes Surgical History: angioplasty - Multiple lower extremity stents., appendectomy, cholecystectomy, herniorrhaphy - Right inguinal., - - Amputation left thumb, Right Carpal tunnel surgery. Surgery on right eye at age 18, Hemorrhoidectomy, left wrist fracture. Lives: [facility] Smoking Status: Former smoker - Family History Paternal Family History: Reports: No pertinent history Maternal Family History: Reports: No pertinent history Additional Family History: reports a family history of diabetes Review of Systems General: Denies: Chills, Fever Eyes: Denies: Visual changes - bilaterally ENT: Denies: Bilateral ear pain Cardiovascular: Denies: Chest pain Respiratory: Denies: Dyspnea, Cough Gastrointestinal: Denies: Abdominal pain, Nausea, Vomiting, Diarrhea Genitourinary: Denies: Dysuria Musculoskeletal: Reports: Swelling, Extremity Pain Skin: Reports: Wounds. Denies: Rash Neurological: Denies: Headache Psych: Denies: Depression, Anxiety Hematologic: Denies: Easy bruising, Easy bleeding Allergy: Denies: Uticaria Physical Exam Vital Signs/Narrative: Vital Signs Temp Pulse Resp BP Pulse Ox 12/16/19 15:45 171/69 H 12/16/19 15:42 98.1 F 64 18 184/72 H 98 Inital Vital Signs reviewed: Yes General: Well nourished, Well developed Head: Normocephalic ENT: Moist mucous membranes Neck: Supple Cardiovascular: Regular rate, Regular rhythm Respiratory: No distress, CTA bilaterally Abdomen: Soft, Nontender Back: Nontender Extremities: - - Plus edema to the left lower extremity. Mild erythema. Healing surgical wound to the left groin is noted without sign of acute infection. Neurological: Alert, Oriented x3 Psychological: Normal affect Diagnostic/Tx/Re-eval Impressions Venous Duplex 12/16/19 17:16 IMPRESSION: There is no evidence of DVT of the evaluated venous structures of the left lower extremity. Electronically Signed: Amaury Gong MD at 18:36 EDT , Service support , Abdomen/Pelvis CTA 12/16/19 18:43 IMPRESSION: 1. Patent bilateral common and external iliac stents. 2. Irregular common femoral anastomosis at the site of surgical clipping with increased abnormal soft tissue density in the left groin. Slow leak is not excluded. 3. Occlusion of the distal right peroneal artery. 4. Left adrenal mass, present on the prior study. Electronically Signed: Nani Aragon MD at 20:41 EDT Tel , Service support , 12/16/19 18:43 CTA Abd w/Runoff W/WO Contrast [CT] Stat Laboratory Results 12/16/19 12/16/19 12/16/19 17:22 17:22 17:22 WBC 5.4 RBC 4.26 L Hgb 10.5 L Hct 36.4 L MCV 85.4 MCH 24.6 L MCHC 28.8 L RDW Std Deviation 49.1 H RDW Coeff of Aly 15.7 H Plt Count 303 MPV 10.2 Immature Gran % (Auto) 0.400 Neut % (Auto) 58.0 Lymph % (Auto) 26.4 [place] % (Auto) 9.2 Eos % (Auto) 4.2 Baso % (Auto) 1.8 H Absolute Neuts (auto) 3.1 Absolute Lymphs (auto) 1.43 Nucleated RBC % 0 PT 21.0 H INR 1.9 Sodium 141 Potassium 4.1 Chloride 104 Carbon Dioxide 31.0 Anion Gap 6 BUN 18 Creatinine 0.83 Estim Creat Clear Calc 80.12 Est GFR (MDRD) Af Amer 118 Est GFR (MDRD) Non-Af 98 BUN/Creatinine Ratio 21.8 H Glucose 99 Calcium 8.8 - Medical Decision Making Blood work is discussed with the patient. His INR is slightly subtherapeutic. Venous ultrasound reveals no evidence of DVT. Because I do not have access to arterial ultrasound at night I did get a CTA of the abdomen with runoff to the legs. This was read as increased abnormal soft tissue density in the left groin and a slow leak from the anastomotic site could not be excluded. I spoke with Dr. Stevens, vascular surgery on-call for Dr. Villa. After obtaining verbal consent from the patient I did send images of the CT to him. He would like the patient to be transferred so he can see him in person and evaluate the wound and leg. Patient is in agreement with this. Patient will be transferred to [place] under Dr. Stevens's service. ED Disposition - Plan for ED Patient: Disposition: Acute Care Hospital - Other Diagnosis: Postoperative complication Referrals: Daija Douglas MD [Primary Care Provider] -
--- NOTE | 2019-12-16 17:16 | US_ITS ---
STUDY: VENOUS DOPPLER ULTRASOUND - LEFT LOWER EXTREMITY REASON FOR EXAM: Male, 69 years old. LT LEG SWELLING RECENT STENT AND BLOOD CLOT REMOVED TECHNIQUE: Ultrasound evaluation of the deep vein system to include baires-scale imaging and compression was performed. Baires-scale imaging and Doppler sonographic evaluation, including duplex spectral analysis and qualitative color flow sonography, was performed. COMPARISON: Previous study of 12/14/2017 FINDINGS: Common Femoral Vein: Normal compression, spontaneity and augmentation. Normal color Doppler. Limited visualization secondary to overlying bandage. Common Femoral Vein/Greater Saphenous Junction: Normal compression. No internal echoes. Deep Femoral Vein: Not imaged Femoral Proximal: Normal compression. No internal echoes. Femoral Middle: Normal compression, spontaneity and augmentation. Normal color Doppler. Femoral Distal: Normal compression. No internal echoes. Popliteal Vein: Normal compression, spontaneity and augmentation. Normal color Doppler. Posterior Tibial Vein: Normal compression. No internal echoes. Peroneal Vein: Normal compression. No internal echoes. US/Venous Duplex Imag/Limited/Uni IMPRESSION: There is no evidence of DVT of the evaluated venous structures of the left lower extremity. Electronically Signed: Amaury Gong MD at 18:36 EDT , Service support ,
[2019-12-16] MEDS: Ondansetron 4 MG/2 ML Vial IV (17:26)
[2019-12-16] MEDS: Morphine 4 MG/ML Syringe IV (17:26)
[2019-12-16 17:36] LABS: Absolute Lymphocyte Count 1.43 X10^3/uL (0.83-4.51); Absolute Neutrophil Count 3.1 X10^3/uL (2.0-7.7); Basophil% 1.8 % (0-1); Eosinophil# 0.23 X10^3/uL; Eosinophils% 4.2 % (0-5); Hematocrit 36.4 % (40-54); Hemoglobin 10.5 g/dL (13.0-16.5); Lymphocyte # 1.43 X10^3/ul (4.0); Lymphocyte % 26.4 % (19-41); Mean Corp Hgb Conc 28.8 g/dL (32-36); Mean Corpuscular Hgb 24.6 pg (27.0-32.0); Mean Corpuscular Volume 85.4 fL (80-94); Mean Platelet Vol. 10.2 fl (6.2-12.0); Monocyte% 9.2 % (0-10); NRBC Flagged by Analyzer 0 % (0-5); Neutrophil # 3.14 X10^3/uL (2.7-7.7); Platelet Count 303 K/mm3 (150-450); RBC Distribution Width CV 15.7 % (11.6-14.6); RBC Distribution Width SD 49.1 fl (35.1-43.9); Red Blood Count 4.26 M/mm3 (4.6-6.2); White Blood Count 5.4 K/mm3 (4.4-11.0)
[2019-12-16 17:46] LABS: International Normalized Ratio 1.9
[2019-12-16 17:51] LABS: Anion Gap 6 (5-15); BUN 18 mg/dL (7-18); BUN/Creat Ratio 21.8 RATIO (10-20); Calcium,Total 8.8 mg/dL (8.5-10.1); Chloride 104 mmol/L (98-107); Creatinine, Serum 0.83 mg/dL (0.70-1.30); EST Glomerular Filtration Rate 98 mL/min (>60); Est Glom Filt Rate - Afr Amer 118 mL/min (>60); Estimated Creatinine Clearance 80.12 ml/min; Glucose 99 mg/dL (74-106); Potassium 4.1 mmol/L (3.5-5.1); Sodium Level 141 mmol/L (136-145)
[2019-12-16 18:16] VITALS: BP 187/79; PULSE 80; RESP 18; O2SAT 92
--- NOTE | 2019-12-16 18:43 | CT_ITS ---
STUDY: CTA OF THE ABDOMINAL AORTA AND BILATERAL LOWER EXTREMITIES REASON FOR EXAM: Male, 69 years old. LT LEG EDEMA,RECENT ARTERIAL CLOT WITH STENT LT LEG -- HX:PVD,ASTHMA,COPD,HLD,MULT CLOTS AND STENTS IN LEG RADIATION DOSAGE (If Supplied By Facility): CTDIvol = ( 9.40 ) mGy, DLP = ( 1264.23 ) mGycm TECHNIQUE: Axial CT angiography multi-detector data acquisition was obtained from the to the following intravenous administration of IV 100mL Isovue-370. Axial images and MIP images were reconstructed from the axial data set. Post-processing of the angiographic images was performed, with multiplanar reformation and 3D reconstruction. Individualized dose optimization techniques were used for this CT. TECHNICAL QUALITY: Good COMPARISON: 02/06/2016. Descriptors of Narrowing: None (0%) Mild (< 50%) Moderate (50-70%) Severe (70-90%) Subtotal/Total Occlusion (90-100%) Non-Evaluable (technically non-diagnostic FINDINGS: Abdominal aorta is normal in caliber. There is moderate atherosclerotic calcification. SMA is patent. Atherosclerotic calcification at the origins of the renal arteries. Inferior mesenteric artery is patent. Left adrenal mass, partially imaged. This was identified on the prior study but is not adequately compared due to partial visualization on today''s examination. Right common iliac artery: Patent stent. Right external iliac artery: Patent stent. Right internal iliac artery: There is severe diffuse narrowing. Left common iliac artery: Patent stent. Left external iliac artery: Patent stent. Left internal iliac artery: Critical stenosis or occlusion with distal reconstitution. RIGHT LOWER EXTREMITY Right common femoral artery: There is mild diffuse narrowing. Right profundus femoris: No demonstrated narrowing. Right superficial femoral: No demonstrated narrowing. Right popliteal artery: No demonstrated narrowing. Right tibioperoneal trunk: No demonstrated narrowing. Right anterior tibial artery: No demonstrated narrowing. Right posterior tibial artery: No demonstrated narrowing. Right peroneal artery: No demonstrated narrowing with nonvisualization at the distal calf. LEFT LOWER EXTREMITY Left common femoral artery: No demonstrated narrowing. There is irregularity with L shaped anastomosis versus pseudoaneurysm at the site of surgical clips in the left groin. There is moderate abnormal soft tissue density which is new compared to 2016. Question low-grade leak. Left profundus femoris: No demonstrated narrowing. Left superficial femoral: There is mild diffuse narrowing. Left popliteal artery: There is mild diffuse narrowing. Left tibioperoneal trunk: No demonstrated narrowing. Left anterior tibial artery: No demonstrated narrowing. Left posterior tibial artery: No demonstrated narrowing. Left peroneal artery: No demonstrated narrowing. CT/CTA Abd w/Runoff W/WO Contrast IMPRESSION: 1. Patent bilateral common and external iliac stents. 2. Irregular common femoral anastomosis at the site of surgical clipping with increased abnormal soft tissue density in the left groin. Slow leak is not excluded. 3. Occlusion of the distal right peroneal artery. 4. Left adrenal mass, present on the prior study. Electronically Signed: Nani Aragon MD at 20:41 EDT Tel , Service support ,
[2019-12-16 20:34] VITALS: BP 152/65; PULSE 78; RESP 16; O2SAT 95
[2019-12-16 22:25] VITALS: BP 150/87; PULSE 78; RESP 16; O2SAT 95
--- NOTE | 2019-12-16 22:58 | ED.RN ---
Called [facility],. gave update to nurse Shai about transfer to [facility]
[2019-12-17 00:03] VITALS: BP 156/66; PULSE 86; RESP 16; O2SAT 93
[2019-12-17 00:06] VITALS: BP 133/79; PULSE 78; RESP 17; O2SAT 94
[2019-12-17] MEDS: Acetaminophen 500 MG Tablet 1000 MG PO (01:36)
== END 2019-12-17 01:37 | disposition short-term general hospital (02) ==
PROVIDERS: Emergency Provider Emergency Medicine; PCP Internal Medicine
DX: Z98.890 Other specified postprocedural states (principal); E11.9 Type 2 diabetes mellitus without complications; I10 Essential (primary) hypertension; J44.9 Chronic obstructive pulmonary disease, unspecified; F41.9 Anxiety disorder, unspecified; E78.5 Hyperlipidemia, unspecified; Z79.84 Long term (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 of oral hypoglycemic drugs; Z79.01 Long term (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 of anticoagulants; Z87.891 Personal history of nicotine dependence
CPT/HCPCS: 75635; 80048; 85025; 85610; 93971; 96374; 96375; 99285; Q9967; A4216; J2405

== ENCOUNTER 2020-02-25 11:22 | Emergency (ER) | payer MEDICARE, MEDICAID, SELFPAY ==
[2020-02-25 11:23] VITALS: BP 133/97; PULSE 58; RESP 16; TEMP 36.2; O2SAT 97; BMI 27.3
--- NOTE | 2020-02-25 11:45 | EKG12_ITS ---
Test Reason : EDEMA Blood Pressure : / mmHG Vent. Rate : 053 BPM Atrial Rate : 053 BPM P-R Int : 194 ms QRS Dur : 086 ms QT Int : 388 ms P-R-T Axes : 025 061 075 degrees QTc Int : 364 ms Sinus bradycardia Otherwise normal ECG Confirmed by DIMAS RANDALL, NATE ([id number]), supervising film or videotape editor NARGIS VAN ([id number]) on 02/27/2020 9:38:00 AM Referred By: JAMIE Confirmed By:NATE COCHRAN MD
--- NOTE | 2020-02-25 11:46 | VDLE_ITS ---
Reason For Study: swelling Procedure LEFT Exam performed portable in ED. GSV is normal. The exam was abbreviated due to the COVID 19 CFV is compressible, spontaneous, phasic, protocol. competent, and demonstrates normal The exam was diagnostic. augmentation. A preliminary report was called and/or faxed FV is compressible, spontaneous, phasic, to Dr. Santos. competent and demonstrates normal augmentation. POP V is compressible, spontaneous, phasic, competent and demonstrates normal augmentation. T/P Trunk is compressible. PTV is compressible. LT PerV is compressible. Hypoechoic area behind the knee measuring .78 x 2.16 cm. Area is nonvascular. Interpretation Summary Deep veins of the left lower extremity are patent and compressible segmentally. There is no evidence of left lower extremity deep vein thrombosis. Valvular competence appears intact within the proximal deep venous system on the left . The left great saphenous vein appears patent and compressible segmentally. A non-vascular, hypoechoic structure is noted in the left popliteal space, measuring 0.78 cm x 2.16 cm. This probably represents a popliteal cyst. Clinical correlation is advised. Ordering Physician: Santos Santos Performed By: Duran Sweet, RVT
--- NOTE | 2020-02-25 11:49 | ED.DCSUM_ITS ---
History of Present Illness Chief Complaint: Edema Narrative: Patient is a 69-year-old male who presents with left leg swelling. History is difficult to obtain as the patient is a poor informant. He reports that he has had 4 surgeries on his left leg. He states that he has multiple stents in the leg and that 1 was bent up and had a clot on it. It sounds like he had a surgery for removal of the stent. On review of prior records it appears that he has had multiple visits to this emergency department in which she was transferred back to the hospital with his vascular surgeon. He was seen here in late November after removal of the stent. At that time there appeared to be an abnormal fluid collection and he was transferred to [facility]. Patient states that his swelling actually has been present in the left leg ever since that surgery and that that is not new or worse. He also states that the wound looked red. He notes this is been going on really ever since the surgery as well. When asked what brought him to the emergency department today he stated he was sent by the vascular surgeon who he actually had an appointment with today. Eventually the patient stated that he had a therapist to the house today who checked his breathing and it was low. On further questioning it was actually his pulse that was low in the low 40s. He believes the therapist contacted his primary care physician who then contacted the vascular surgeons office. The patient states he was contacted by the vascular surgeon's office who then canceled the appointment and told him to just reschedule after his emergency department visit today. Patient denies any chest pain difficulty breathing dizziness lightheadedness. Patient does report intermittent pain in the left leg although he is not having pain currently. Past Medical History - Allergies and Home Meds Allergies/Adverse Reactions: Allergies No Known Allergies Allergy (Verified 02/25/20 11:23) Primary Care Physician: Daija Douglas MD [Primary Care Provider] - Past Medical History: - - Hypertension, hyperlipidemia, peripheral arterial disease Surgical History: angioplasty - Multiple lower extremity stents., appendectomy, cholecystectomy, herniorrhaphy - Right inguinal., - - Amputation left thumb, Right Carpal tunnel surgery. Surgery on right eye at age 18, Hemorrhoidectomy, left wrist fracture. Smoking Status: Former smoker - Family History Paternal Family History: Reports: No pertinent history Maternal Family History: Reports: No pertinent history Additional Family History: reports a family history of diabetes Review of Systems All systems negative except as indicated General: Denies: Fever Eyes: Denies: Visual changes - bilaterally Cardiovascular: Denies: Chest pain Respiratory: Denies: Dyspnea Gastrointestinal: Denies: Abdominal pain, Nausea, Vomiting Musculoskeletal: Reports: Swelling, Extremity Pain Skin: Denies: Rash Neurological: Denies: Headache Allergy: Denies: Uticaria Physical Exam Vital Signs/Narrative: Vital Signs Temp Pulse Resp BP Pulse Ox 02/25/20 11:23 97.2 F L 58 L 16 133/97 H 97 Inital Vital Signs reviewed: Yes General: Well nourished Head: Normocephalic Eyes: EOMI ENT: Moist mucous membranes Neck: Supple Cardiovascular: Regular rate, Regular rhythm Respiratory: No distress Abdomen: Soft Extremities: - - I do not appreciate any significant edema of the lower extremities patient has a normal Doppler signal on left dorsalis pedis pulse the extremities are warm with brisk capillary refill, the surgical scar at the left groin has no erythema induration fluctuance or drainage. This is a keloid scar. Skin: Normal color Neurological: Alert Psychological: Normal affect Diagnostic/Tx/Re-eval Laboratory Results 02/25/20 02/25/20 02/25/20 12:30 12:30 12:30 WBC 5.5 RBC 5.21 Hgb 11.1 L Hct 39.0 L MCV 74.9 L MCH 21.3 L MCHC 28.5 L RDW Std Deviation 45.2 H RDW Coeff of Aly 17.1 H Plt Count 396 MPV 10.2 Immature Gran % (Auto) 0.200 Neut % (Auto) 68.0 Lymph % (Auto) 22.5 [place] % (Auto) 7.0 Eos % (Auto) 0.7 Baso % (Auto) 1.6 H Absolute Neuts (auto) 3.7 Absolute Lymphs (auto) 1.23 Nucleated RBC % 0 PT 31.4 H INR 3.1 Sodium 138 Potassium 4.1 Chloride 105 Carbon Dioxide 30.0 Anion Gap 3 L BUN 15 Creatinine 0.85 Estim Creat Clear Calc 78.24 Est GFR (MDRD) Af Amer 115 Est GFR (MDRD) Non-Af 95 BUN/Creatinine Ratio 17.7 Glucose 99 Calcium 9.8 - Medical Decision Making At this time I do not appreciate any significant edema of the lower extremities. Patient was advised that the redness he is seeing at his surgical site is scar tissue related and that this is not infected. EKG shows sinus bradycardia at a rate of 53. Venous duplex is negative for DVT. There is a hypoechoic area behind the knee which is most likely related to process such as Harrison's cyst. His serum laboratory studies are unremarkable. Patient was reassured. He was advised to follow-up with his primary care physician and vascular surgeon. Patient was discharged. ED Disposition - Plan for ED Patient: Disposition: Home or Assisted Living Diagnosis: Visit for wound check, Bradycardia Instructions: ED Bradycardia Referrals: Daija Douglas MD [Primary Care Provider] -
[2020-02-25 12:50] LABS: Absolute Lymphocyte Count 1.23 X10^3/uL (0.83-4.51); Absolute Neutrophil Count 3.7 X10^3/uL (2.0-7.7); Basophil# 0.09 X10^3/uL; Basophil% 1.6 % (0-1); Eosinophil# 0.04 X10^3/uL; Eosinophils% 0.7 % (0-5); Hemoglobin 11.1 g/dL (13.0-16.5); Lymphocyte # 1.23 X10^3/ul (4.0); Lymphocyte % 22.5 % (19-41); Mean Corp Hgb Conc 28.5 g/dL (32-36); Mean Corpuscular Hgb 21.3 pg (27.0-32.0); Mean Corpuscular Volume 74.9 fL (80-94); Mean Platelet Vol. 10.2 fl (6.2-12.0); Monocyte# 0.38 X10^3/uL; NRBC Flagged by Analyzer 0 % (0-5); Neutrophil # 3.71 X10^3/uL (2.7-7.7); Platelet Count 396 K/mm3 (150-450); RBC Distribution Width CV 17.1 % (11.6-14.6); RBC Distribution Width SD 45.2 fl (35.1-43.9); Red Blood Count 5.21 M/mm3 (4.6-6.2); White Blood Count 5.5 K/mm3 (4.4-11.0)
[2020-02-25 13:01] LABS: BUN 15 mg/dL (7-18); Creatinine, Serum 0.85 mg/dL (0.70-1.30); Estimated Creatinine Clearance 78.24 ml/min; Glucose 99 mg/dL (74-106)
[2020-02-25 13:02] LABS: Anion Gap 3 (5-15); BUN/Creat Ratio 17.7 RATIO (10-20); Calcium,Total 9.8 mg/dL (8.5-10.1); Chloride 105 mmol/L (98-107); EST Glomerular Filtration Rate 95 mL/min (>60); Est Glom Filt Rate - Afr Amer 115 mL/min (>60); Potassium 4.1 mmol/L (3.5-5.1); Sodium Level 138 mmol/L (136-145)
[2020-02-25 13:08] LABS: International Normalized Ratio 3.1; Prothrombin Time (Protime)PT. 31.4 SECONDS (11.7-14.9)
[2020-02-25 13:35] VITALS: PULSE 52; RESP 24; O2SAT 93
[2020-02-25 13:54] VITALS: BP 166/102; PULSE 57; RESP 21; O2SAT 96
== END 2020-02-25 13:55 | disposition home or self-care (01) ==
PROVIDERS: Emergency Provider Emergency Medicine; PCP Internal Medicine
DX: Z48.00 Encounter for change or removal of nonsurgical wound dressing (principal); R00.1 Bradycardia, unspecified; E78.5 Hyperlipidemia, unspecified; I10 Essential (primary) hypertension; Z87.891 Personal history of nicotine dependence; Z79.02 Long term (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 of antithrombotics/antiplatelets; Z79.899 Other long term (current) drug therapy
CPT/HCPCS: 80048; 85025; 85610; 93005; 93971; 99284

== ENCOUNTER → 2020-02-27 15:15 | Outpatient (CLI) | payer MEDICARE, MEDICAID, SELFPAY ==
[2020-02-25 11:23] VITALS: BMI 27.3
[2020-02-27 16:17] LABS: International Normalized Ratio 2.7; Prothrombin Time (Protime)PT. 28.2 SECONDS (11.7-14.9)
== END ==
PROVIDERS: PCP Internal Medicine; Referring Provider Nurse Practitioner Primary Care; Visit Provider Nurse Practitioner Primary Care
DX: I73.9 Peripheral vascular disease, unspecified (principal)
CPT/HCPCS: 85610

== ENCOUNTER 2020-03-26 09:34 | Emergency (ER) | payer MEDICARE, MEDICAID, SELFPAY ==
[2020-03-26 09:35] VITALS: BP 179/82; PULSE 64; RESP 16; TEMP 36.3; O2SAT 96; BMI 25.0
--- NOTE | 2020-03-26 10:06 | ART_ITS ---
Reason For Study: Pain Procedure A bilateral lower extremity continuous wave Doppler with analog waveform analysis and ankle brachial indexes. Left Segmental Pressures Left brachial= 202mmHg. Left posterior tibial artery = 126mmHg. Left dorsalis pedis artery = 150mmHg. Left digit = 76 mmHg. The left dorsalis pedis waveforms are monophasic. The left posterior tibial artery waveforms are monophasic. Right Segmental Pressures Right brachial= 186mmHg. Right posterior tibial artery = 200mmHg. Right dorsalis pedis artery = >254mmHg. Right digit = 145 mmHg. The right dorsalis pedis waveforms are triphasic. The right posterior tibial artery waveforms are triphasic. Indices The right ankle brachial index by the dorsalis pedis is NC. The right ankle brachial index by the posterior tibial artery is 0.99. The right digital-brachial index is 0.72. The left ankle brachial index by the dorsalis pedis is 0.74. The left ankle brachial index by the posterior tibial artery is 0.62. The left digital-brachial index is 0.38. Interpretation Summary Mild disease right lower extremity arterial examination based upon non-compressibility of the right dorsalis pedis although the right posterior tibialis demonstrates an ankle-brachial index of 0.99 and the Doppler waveforms of the right posterior tibial and dorsalis pedis are triphasic Abnormal right digital brachial index Moderately severe left lower extremity occlusive disease based upon ankle-brachial indices and Doppler waveforms. Abnormal left digital brachial index Ordering Physician: Charis Walker Referring Physician: Daija Douglas Performed By: Nohemi Juárez RVT and Student
[2020-03-26 11:00] LABS: Absolute Lymphocyte Count 1.32 X10^3/uL (0.83-4.51); Basophil# 0.06 X10^3/uL; Basophil% 1.2 % (0-1); Eosinophil# 0.06 X10^3/uL; Eosinophils% 1.2 % (0-5); Hematocrit 36.3 % (40-54); Hemoglobin 10.1 g/dL (13.0-16.5); Lymphocyte # 1.32 X10^3/ul (4.0); Lymphocyte % 27.4 % (19-41); Mean Corp Hgb Conc 27.8 g/dL (32-36); Mean Corpuscular Hgb 21.1 pg (27.0-32.0); Mean Corpuscular Volume 75.8 fL (80-94); Mean Platelet Vol. 9.4 fl (6.2-12.0); Monocyte# 0.38 X10^3/uL; Monocyte% 7.9 % (0-10); NRBC Flagged by Analyzer 0 % (0-5); Neutrophil % 62.3 % (47-70); Platelet Count 261 K/mm3 (150-450); RBC Distribution Width CV 19.3 % (11.6-14.6); Red Blood Count 4.79 M/mm3 (4.6-6.2); White Blood Count 4.8 K/mm3 (4.4-11.0)
[2020-03-26 11:10] LABS: International Normalized Ratio 1.6; Prothrombin Time (Protime)PT. 18.2 SECONDS (11.7-14.9)
[2020-03-26 11:13] LABS: Anion Gap 6 (5-15); BUN 19 mg/dL (7-18); BUN/Creat Ratio 23.2 RATIO (10-20); Chloride 108 mmol/L (98-107); Creatinine, Serum 0.82 mg/dL (0.70-1.30); EST Glomerular Filtration Rate 99 mL/min (>60); Est Glom Filt Rate - Afr Amer 119 mL/min (>60); Glucose 98 mg/dL (74-106); Potassium 3.8 mmol/L (3.5-5.1); Sodium Level 143 mmol/L (136-145)
--- NOTE | 2020-03-26 11:57 | VDLE_ITS ---
Reason For Study: Swelling Procedure LEFT This is a venous duplex using B-mode, color GSV is normal. flow and spectral Doppler. CFV is compressible, spontaneous, phasic, Exam performed portable in ED. competent, and demonstrates normal A preliminary report was called and/or faxed augmentation. to RN. FV is compressible, spontaneous, phasic, competent and demonstrates normal augmentation. POP V is compressible, spontaneous, phasic, competent and demonstrates normal augmentation. T/P Trunk is compressible. PTV is compressible. LT PerV is compressible. Interpretation Summary There is no evidence of left lower extremity deep vein thrombosis. Left great saphenous vein appears patent and compressible segmentally. Ordering Physician: Charis Walker Referring Physician: Daija Douglas Performed By: Nohemi Juárez RVT and Student
--- NOTE | 2020-03-26 14:54 | ED.DCSUM_ITS ---
- ER Visit Summary Date of Service: 03/26/20 Chief Complaint: [Pain and swelling to left leg] History of Present Illness: The patient is a 69 M [presents to the emergency department with discomfort in his left leg that he has had since [facility]. Patient describes discomfort to the inner aspect of the left upper thigh. Patient noticed swelling to the area. Patient states that in November he had surgery with a vascular surgeon at [facility] and had stents put in his left leg as he has history of peripheral artery disease. He is currently on Coumadin. Patient states he has been compliant with his Coumadin and his last INR about a week ago was 2.0. Patient states he is got an appointment with pain management next week. Patient has history of COPD, diabetes, hypertension, lupus, seizure disorder, peripheral artery disease, and DVT history. Patient denies any injury to his left leg. He has history of chronic back pain issues but does not feel that the pain is coming from his back.] Physical Examination: [HEENT-PERRLA, EOMI. Cranial nerves II through XII grossly intact. TMs clear. Mucous membranes moist. No adenopathy. Cardiovascular-regular rate and rhythm without murmur or ectopy Lungs-clear to auscultation, chest wall stable without crepitus or subcu emphysema Abdomen-normoactive bowel sounds, soft, nontender, no rebound or rigidity, no peritoneal signs. Extremities-intact ?4, normal range of motion, normal pulses, atraumatic. Left leg-patient has good range of motion of flexion-extension at the hip, knee, and ankle. Cap refill is 3 seconds. Palpable pulses at dorsal pedal and posterior tibial regions noted is +1. Popliteal pulse +1. Femoral pulse +2. Extremities warm to the touch. Negative straight leg raises. Deep tendon reflexes are plus 2 out of 4 bilaterally.] Test Results: [CBC with differential obtained was normal. Chemistries unremarkable. INR was 1.6. Ankle-brachial index ease obtained showed an SRUTHI of 0.74 at the dorsal pedal region as well as 0.62 the posterior tibial region, as well as 0.38 at the digital branch. It was noted that patient had moderately severe lower extremity peripheral vascular disease. Patient had venous Doppler that was negative for DVT.] Emergency Department Course and Treatment: [] Treatment Plan: [Results discussed with patient. Patient does not have an acute occlusion of his lower extremity. I feel he can follow-up with his vascular surgeon and primary care physician as well as pain management. I will give him a prescription for [place] for pain.] Disposition: [Discharged home in stable condition] Impression: [Left leg pain-etiology uncertain Peripheral vascular disease-chronic Coumadin coagulopathy] This note was generated with [employer] dictation software. It may contain incorrect words, spelling, and punctuation that were not noted in review of the chart prior to signing ED Disposition - Plan for ED Patient: Referrals: Daija Douglas MD [Primary Care Provider] -
--- NOTE | 2020-03-26 14:59 | DCINST.ED_ITS ---
ED Disposition - Plan for ED Patient: Instructions: ED PVD Prescriptions: Hydrocodone Bitart/Apap 5-325 [[place] 5MG-325MG] 1 tab PO Q4H PRN PRN 2 Days #14 tab PRN Reason: Pain Prescription Printed Referrals: Daija Douglas MD [Primary Care Provider] - 3-5 Days
[2020-03-26 15:08] VITALS: BP 134/69; PULSE 84; RESP 16; O2SAT 97
== END 2020-03-26 15:20 | disposition home or self-care (01) ==
LOC: ED 11:18
PROVIDERS: Emergency Provider Emergency Medicine; PCP Internal Medicine
DX: M79.605 Pain in left leg (principal); I73.9 Peripheral vascular disease, unspecified; R79.1 Abnormal coagulation profile; J44.9 Chronic obstructive pulmonary disease, unspecified; I10 Essential (primary) hypertension; T45.515A Adverse effect of anticoagulants, initial encounter; Z79.01 Long term (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 of anticoagulants
CPT/HCPCS: 80048; 85025; 85610; 93922; 93971; 99283

== ENCOUNTER 2020-07-22 18:42 | Emergency (ER) | payer MEDICARE, MEDICAID, SELFPAY ==
[2020-07-22 18:43] VITALS: BP 152/71; PULSE 64; RESP 18; TEMP 36.6; O2SAT 92; BMI 24.3
--- NOTE | 2020-07-22 19:07 | CT_ITS ---
STUDY: CT ABDOMEN AND PELVIS WITH CONTRAST REASON FOR EXAM: Male, 70 years old. FELL ON ICE X 2,FLANK PAIN -- HX:HTN,CAD,NH,ASTHMA,COPD -- APPENDECTOMY, LEG STENTS RADIATION DOSAGE (If Supplied By Facility): CTDIvol = ( 13.87 ) mGy, DLP = ( 598.35 ) mGycm TECHNIQUE: Transaxial images were obtained from the dome of the diaphragm to the symphysis pubis without oral contrast. IV 100mL Isovue-300 was administered. Sagittal and coronal images were reconstructed. Individualized dose optimization techniques were used for this CT. COMPARISON: 02/06/[address] of the chest dated 10/28/2018 FINDINGS: The visualized lung bases are unremarkable. The visualized portions of the heart are within normal limits. Within the right hepatic lobe there is a peripherally enhancing to small to characterize low-attenuation focus within appearance consistent with a hemangioma. Normal gallbladder and extrahepatic biliary system. Normal spleen. Normal pancreas. There are stable circumscribed, smooth, low attenuation bilateral adrenal masses, consistent with adrenal adenomas, larger on the left. There are curvilinear calcifications within the kidneys, likely vascular. Normal visualized stomach. Normal small intestine. There are multiple colonic diverticula consistent with diverticulosis. There is non-visualization of the appendix. There is diffuse atherosclerotic calcification of the abdominal aorta, without a demonstrated aneurysm. There are stents within the common iliac arteries. Normal inferior vena cava. Normal retroperitoneum. Normal urinary bladder. There are postsurgical changes within the left inguinal region. There are diffuse degenerative changes of the visualized lumbar spine. There are stable superior endplate deformities of L2 and L3 There are stable sclerotic foci within the right iliac wing consistent with bone islands. CT/Abdomen/Pelvis W IV Cont ONLY IMPRESSION: No acute intra-abdominal injury. Atherosclerosis. Stable bilateral adrenal adenomas. Colonic diverticulosis. Degenerative changes of the lumbar spine. Electronically Signed: Maura Spears MD at 20:32 EST Tel , Service support ,
--- NOTE | 2020-07-22 19:08 | ED.DCSUM_ITS ---
History of Present Illness Chief Complaint: Fall Narrative: Patient is a 70-year-old male who presents after a fall. He slipped and fell on ice twice yesterday. He complains of left thigh pain and left flank pain. He is anticoagulated on warfarin. He also reports a history of multiple vascular surgeries with stent and removal on the left. He denies any numbness tingling weakness. No chest pain upper back pain abdominal pain. No urinary retention or fecal incontinence. He denies any head injury. No headache vomiting neck pain. Past Medical History - Allergies and Home Meds Allergies/Adverse Reactions: Allergies No Known Allergies Allergy (Verified 07/22/20 18:49) Primary Care Physician: Daija Douglas MD [Primary Care Provider] - Past Medical History: - - Hypertension, hyperlipidemia, peripheral vascular disease. Surgical History: angioplasty - Multiple lower extremity stents., appendectomy, cholecystectomy, herniorrhaphy - Right inguinal., - - Amputation left thumb, Right Carpal tunnel surgery. Surgery on right eye at age 18, Hemorrhoidectomy, left wrist fracture. Smoking Status: Former smoker - Family History Paternal Family History: Reports: No pertinent history Maternal Family History: Reports: No pertinent history Additional Family History: reports a family history of diabetes Review of Systems All systems negative except as indicated General: Denies: Fever Eyes: Denies: Visual changes - bilaterally ENT: Denies: Bilateral ear pain Cardiovascular: Denies: Chest pain Respiratory: Denies: Dyspnea Gastrointestinal: Denies: Abdominal pain Musculoskeletal: Reports: Back pain Skin: Denies: Rash Neurological: Denies: Headache Hematologic: Reports: Easy bruising, Easy bleeding Allergy: Denies: Uticaria Physical Exam Vital Signs/Narrative: Vital Signs Temp Pulse Resp BP Pulse Ox 07/22/20 18:43 97.9 F 64 18 152/71 H 92 Inital Vital Signs reviewed: Yes General: Well nourished, Well developed Head: Normocephalic Eyes: EOMI ENT: Moist mucous membranes Neck: Supple Cardiovascular: Regular rate, Regular rhythm Respiratory: No distress, CTA bilaterally Abdomen: Soft, Nontender Back: - - Left CVA/flank tenderness, left CVA erythema/contusion Extremities: - - Left thigh tenderness no deformity no hip pain with range of motion no knee or lower leg tenderness brisk capillary refill skin warm and dry, normal sensation Neurological: Alert Psychological: Normal affect Diagnostic/Tx/Re-eval Impressions Abdomen/Pelvis CT 07/22/20 19:07 IMPRESSION: No acute intra-abdominal injury. Atherosclerosis. Stable bilateral adrenal adenomas. Colonic diverticulosis. Degenerative changes of the lumbar spine. Electronically Signed: Maura Spears MD at 20:32 EST Tel , Service support , Femur X-Ray 07/22/20 20:10 IMPRESSION: No acute osseous injury. Electronically Signed: Maura Spears MD at 20:46 EST Tel , Service support , 07/22/20 19:07 CT Abd [Abdomen/Pelvis W IV Cont ONLY] [CT] Stat 07/22/20 20:10 Femur Min 2 Views [RAD] Stat Laboratory Results 07/22/20 07/22/20 07/22/20 19:20 19:20 19:20 WBC 6.9 RBC 4.63 Hgb 11.0 L Hct 36.0 L MCV 77.8 L MCH 23.8 L MCHC 30.6 L RDW Std Deviation 51.9 H RDW Coeff of Aly 18.7 H Plt Count 272 MPV 9.6 Immature Gran % (Auto) 0.400 Neut % (Auto) 69.9 Lymph % (Auto) 19.9 [place] % (Auto) 8.7 Eos % (Auto) 0.4 Baso % (Auto) 0.7 Absolute Neuts (auto) 4.8 Absolute Lymphs (auto) 1.37 Nucleated RBC % 0 PT 18.1 H INR 1.6 Sodium 134 L Potassium 3.9 Chloride 101 Carbon Dioxide 27.0 Anion Gap 6 BUN 15 Creatinine 1.42 H Estim Creat Clear Calc 46.16 Est GFR (MDRD) Af Amer 63 Est GFR (MDRD) Non-Af 52 L BUN/Creatinine Ratio 10.6 Glucose 94 Calcium 9.1 - Medical Decision Making As patient is anticoagulated with a flank injury CT imaging was obtained to rule out renal injury. This shows no acute intra-abdominal process. Left femur x- ray shows no acute osseous injury. Serum labs notable for mild elevation of creatinine from prior labs. His creatinine is 1.42. He was given IV fluids. He was given morphine and Zofran here for symptoms and was provided with a prescription for short course of [place] for pain. He understands to follow-up as an outpatient and return for new or worsening symptoms and the patient was discharged. ED Disposition - Plan for ED Patient: Disposition: Home or Assisted Living Diagnosis: Contusion, flank, Thigh contusion Instructions: ED Contusion, Lower Extremity, ED Back Contusion Prescriptions: Hydrocodone Bitart/Apap 5-325 [[place] 5MG-325MG] 1 tab PO Q6H PRN PRN 3 Days #10 tab PRN Reason: Pain Prescription Printed Referrals: Daija Douglas MD [Primary Care Provider] -
[2020-07-22 19:28] LABS: Absolute Lymphocyte Count 1.37 X10^3/uL (0.83-4.51); Absolute Neutrophil Count 4.8 X10^3/uL (2.0-7.7); Basophil# 0.05 X10^3/uL; Basophil% 0.7 % (0-1); Eosinophil# 0.03 X10^3/uL; Eosinophils% 0.4 % (0-5); Lymphocyte # 1.37 X10^3/ul (4.0); Lymphocyte % 19.9 % (19-41); Mean Corp Hgb Conc 30.6 g/dL (32-36); Mean Corpuscular Hgb 23.8 pg (27.0-32.0); Mean Corpuscular Volume 77.8 fL (80-94); Mean Platelet Vol. 9.6 fl (6.2-12.0); Monocyte% 8.7 % (0-10); NRBC Flagged by Analyzer 0 % (0-5); Neutrophil # 4.82 X10^3/uL (2.7-7.7); Neutrophil % 69.9 % (47-70); Platelet Count 272 K/mm3 (150-450); RBC Distribution Width CV 18.7 % (11.6-14.6); RBC Distribution Width SD 51.9 fl (35.1-43.9); Red Blood Count 4.63 M/mm3 (4.6-6.2); White Blood Count 6.9 K/mm3 (4.4-11.0)
[2020-07-22 19:36] LABS: International Normalized Ratio 1.6; Prothrombin Time (Protime)PT. 18.1 SECONDS (11.7-14.9)
[2020-07-22 19:49] LABS: Anion Gap 6 (5-15); BUN 15 mg/dL (7-18); BUN/Creat Ratio 10.6 RATIO (10-20); Calcium,Total 9.1 mg/dL (8.5-10.1); Chloride 101 mmol/L (98-107); Creatinine, Serum 1.42 mg/dL (0.70-1.30); EST Glomerular Filtration Rate 52 mL/min (>60); Est Glom Filt Rate - Afr Amer 63 mL/min (>60); Estimated Creatinine Clearance 46.16 ml/min; Glucose 94 mg/dL (74-106); Potassium 3.9 mmol/L (3.5-5.1); Sodium Level 134 mmol/L (136-145)
--- NOTE | 2020-07-22 20:10 | RAD_ITS ---
STUDY: X-RAY - LEFT FEMUR REASON FOR STUDY: Male, 70 years old. Slipped and fell on the ice twice yesterday. C/O pain to back and L leg. TECHNIQUE: 4 view(s) of the femur. COMPARISON: None. FINDINGS: Normal visualized femur. There are vascular calcifications. RAD/Femur Min 2 Views IMPRESSION: No acute osseous injury. Electronically Signed: Muara Spears MD at 20:46 EST Tel , Service support ,
[2020-07-22] MEDS: Morphine 4 MG/ML Syringe IV (20:54)
[2020-07-22] MEDS: Ondansetron 4 MG/2 ML Vial IV (20:55)
[2020-07-22] MEDS: 0.9% Normal Saline 1,000 ML 999 ML IV (21:00)
[2020-07-22 21:19] VITALS: BP 170/69; PULSE 57; RESP 16; O2SAT 92
[2020-07-22 22:23] VITALS: BP 168/72; PULSE 62; RESP 16
== END 2020-07-22 22:24 | disposition home or self-care (01) ==
PROVIDERS: Emergency Provider Emergency Medicine; PCP Internal Medicine
DX: S30.1XXA Contusion of abdominal wall, initial encounter (principal); S70.12XA Contusion of left thigh, initial encounter; W00.0XXA Fall on same level due to ice and snow, initial encounter; Z79.01 Long term (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 of anticoagulants; Z87.891 Personal history of nicotine dependence; Z90.49 Acquired absence of other specified parts of digestive tract
CPT/HCPCS: 73552; 74177; 80048; 85025; 85610; 96374; 96375; 99283; J7030; Q9967; A4216; J2405

== ENCOUNTER 2020-08-08 16:59 | Observation (INO) | payer MEDICARE, MEDICAID, SELFPAY ==
[2020-08-08 16:59] VITALS: BP 210/76; PULSE 62; RESP 17; TEMP 36.8; O2SAT 95; BMI 22.8
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
[2020-08-08] MEDS: Ondansetron 4 MG/2 ML Vial IV (17:36)
[2020-08-08] MEDS: Morphine 4 MG/ML Syringe IV (17:36)
--- NOTE | 2020-08-08 17:50 | RAD_ITS ---
STUDY: X-RAY - THORACIC SPINE REASON FOR EXAM: Male, 70 years old. CHRONIC BACK PAIN, LEFT LEG AND HIP PAIN, UNABLE TO AMBULATE TECHNIQUE: 3 view(s) of the thoracic spine were obtained. COMPARISON: None. FINDINGS: Normal kyphosis of the thoracic spine. There is no substantial scoliosis. There is demineralization of the thoracic spine with endplate spondylosis. There is multilevel disc space narrowing of the thoracic spine. There is atherosclerosis of the thoracic aorta. RAD/Thoracic Spine 3 Views IMPRESSION: Degenerative disc disease, spondylosis and osteopenia. No compression fracture. Electronically Signed: Dylan Zaragoza MD ([place]) at 18:10 EST , Service support ,
--- NOTE | 2020-08-08 17:50 | RAD_ITS ---
EXAM: XR LUMBOSACRAL SPINE, 2 OR 3 VIEWS CLINICAL INDICATION: CHRONIC BACK PAIN, LEFT LEG AND HIP PAIN, UNABLE TO AMBULATE TECHNIQUE: Frontal and lateral views of the lumbar spine and sacrum. This report was created using [employer] report [employer] technology. COMPARISON: Abdomen/pelvis CT 07/22/2020, CTA 12/16/2019 FINDINGS: VERTEBRAE: Diffuse osteopenia. Compression fractures of L2 and L3 are stable since prior abdomen/pelvis CT of 07/22/2020, although new since CTA 12/16/2019. No spondylolisthesis. Preservation of the normal lumbar lordosis. No significant facet arthropathy. DISC SPACES: No acute findings. Disc spaces are maintained. VASCULATURE: Atherosclerosis of the abdominal aorta with bilateral iliac artery stents. GASTROINTESTINAL TRACT: Unremarkable as visualized. Included bowel gas pattern is non-obstructive. RAD/Lumbar Spine 2 or 3 Views IMPRESSION: No acute findings in the lumbar spine. L2 and L3 compression fractures stable since 07/22/2020 (but L2 compression new since 12/16/2019). Electronically Signed: Dylan Zaragoza MD ([place]) at 18:08 EST , Service support ,
[2020-08-08 18:07] LABS: Absolute Neutrophil Count 4.1 X10^3/uL (2.0-7.7); Basophil# 0.07 X10^3/uL; Basophil% 1.2 % (0-1); Eosinophil# 0.01 X10^3/uL; Eosinophils% 0.2 % (0-5); Hematocrit 38.3 % (40-54); Hemoglobin 11.8 g/dL (13.0-16.5); Lymphocyte % 22.2 % (19-41); Mean Corp Hgb Conc 30.8 g/dL (32-36); Mean Corpuscular Hgb 24.5 pg (27.0-32.0); Mean Corpuscular Volume 79.5 fL (80-94); Mean Platelet Vol. 9.6 fl (6.2-12.0); Monocyte# 0.34 X10^3/uL; Monocyte% 5.8 % (0-10); NRBC Flagged by Analyzer 0 % (0-5); Neutrophil # 4.11 X10^3/uL (2.7-7.7); Neutrophil % 70.3 % (47-70); Platelet Count 442 K/mm3 (150-450); RBC Distribution Width CV 18.8 % (11.6-14.6); RBC Distribution Width SD 53.8 fl (35.1-43.9); Red Blood Count 4.82 M/mm3 (4.6-6.2); White Blood Count 5.9 K/mm3 (4.4-11.0)
[2020-08-08 18:11] LABS: International Normalized Ratio 3.3; Prothrombin Time (Protime)PT. 32.9 SECONDS (11.7-14.9)
[2020-08-08 18:19] LABS: Anion Gap 5 (5-15); BUN 13 mg/dL (7-18); BUN/Creat Ratio 10.6 RATIO (10-20); Calcium,Total 9.2 mg/dL (8.5-10.1); Chloride 97 mmol/L (98-107); Creatinine, Serum 1.23 mg/dL (0.70-1.30); EST Glomerular Filtration Rate 62 mL/min (>60); Est Glom Filt Rate - Afr Amer 75 mL/min (>60); Estimated Creatinine Clearance 53.01 ml/min; Glucose 104 mg/dL (74-106); Potassium 4.1 mmol/L (3.5-5.1); Sodium Level 132 mmol/L (136-145)
[2020-08-08 18:53] VITALS: BP 203/69; PULSE 56; RESP 19; O2SAT 93
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
[2020-08-08 19:20] VITALS: BP 175/79; PULSE 53; RESP 19; TEMP 36.9; O2SAT 94
[2020-08-08 20:02] VITALS: BMI 23.2
[2020-08-08 20:07] VITALS: BP 178/70; PULSE 57; RESP 18; TEMP 36.3; O2SAT 94
[2020-08-08 20:10] VITALS: BMI 23.2
[2020-08-08] MEDS: Atorvastatin Calcium 40 MG Tablet PO (21:05)
[2020-08-08] MEDS: Mirtazapine 15 MG Tablet PO (21:05)
[2020-08-08] MEDS: Tamsulosin HCl 0.4 MG Capsule PO (21:05)
[2020-08-08] MEDS: carBAMazepine 200 MG Tablet PO (21:05)
[2020-08-08] MEDS: Gabapentin 600 MG Tablet PO (21:05)
[2020-08-08 21:06] VITALS: BP 178/70; PULSE 57; O2SAT 94
[2020-08-08] MEDS: Metoprolol Tartrate 25 MG Tablet PO (21:06)
[2020-08-09] VITALS (10 sets, daily range): BP systolic 128–170; BP diastolic 40–75; PULSE 55–75; RESP 16–18; TEMP 36.6–36.9; O2SAT 89–96
[2020-08-09] MEDS: oxyCODONE 5 MG Tablet PO ×5 (02:19→21:27)
[2020-08-09] MEDS: 0.9% Saline Lock 10 ML Syringe IV (02:24)
[2020-08-09] MEDS: Ondansetron 4 MG/2 ML Vial IV (02:24)
[2020-08-09 06:11] LABS: International Normalized Ratio 3.2; Prothrombin Time (Protime)PT. 32.7 SECONDS (11.7-14.9)
[2020-08-09] MEDS: Dicyclomine 10 MG Capsule 20 MG PO ×3 (06:30→17:03)
[2020-08-09] MEDS: Ipratropium/Albuterol Sulfate 3 ML AMPUL.NEB INHALATION ×3 (07:19→19:55)
[2020-08-09] MEDS: Metoprolol Tartrate 25 MG Tablet PO ×2 (07:59→21:30)
[2020-08-09] MEDS: Gabapentin 300 MG Capsule PO ×2 (07:59→17:04)
[2020-08-09] MEDS: Sertraline 100 MG Tablet PO (07:59)
[2020-08-09] MEDS: Pantoprazole Sodium 40 MG Tablet PO (07:59)
[2020-08-09] MEDS: carBAMazepine 200 MG Tablet PO ×2 (08:00→21:27)
[2020-08-09] MEDS: Finasteride 5 MG Tablet PO (08:00)
[2020-08-09] MEDS: Clopidogrel Bisulfate 75 MG Tablet PO (08:00)
[2020-08-09] MEDS: Aspirin 81 MG TAB.CHEW PO (08:00)
[2020-08-09] MEDS: amLODIPine 5 MG Tablet PO (08:01)
--- NOTE | 2020-08-09 12:39 | PN_ITS ---
Patient Problems: Active and Suspected Problems Debility (Acute) Compression fracture (Acute) Intractable back pain (Acute) Subjective: Patient still having pain in his back and states that he has had chronic anterior left thigh numbness since vascular surgery years ago does state that he has distal numbness that is new since his falls. Denies any bowel or bladder incontinence. Vitals/I&O's: Vital Signs Temp Pulse Resp BP Pulse Ox 36.6 C 61 18 170/40 H 95 08/09/20 08:00 08/09/20 08:00 08/09/20 08:00 08/09/20 08:00 08/09/20 08:00 Oxygen Flow Rate (L/min) 3 Oxygen Delivery Method Nasal Cannula Weight: 69.3 kg Body Mass Index (BMI) 23.2 Finger Stick Blood Glucose 85 Intake and Output for Last 24 Hours 08/07/20 08/08/20 08/09/20 23:59 23:59 23:59 Output Total 450 / 450 Balance -450 / -450 General: Alert, No apparent distress HEENT: Atraumatic, Normocephalic, - - Amblyopia of the right eye. Oral: Moist Mucosa, No Gingival or Mucosal Lesions/ Ulcerations Neck: No Nodes, Thyroid Normal Size and Texture Lungs: Clear to auscultation, Normal air movement, No rhonchi, No wheeze, No rales Cardiovascular: Regular rate, Regular Rhythm, Normal S1, Normal S2, No murmurs Abdomen: Bowel Sounds Present, Soft, Non Tender, Non-Distended, No Hepato- splenomegaly Extremities: No edema, No Calf Tenderness Skin: No rashes, No breakdown Musculoskeletal: Cachexia, Muscle Wasting Neurological: - - Muscle strength 5 5 in lower extremities bilaterally. Diminished sensation on the left lower extremity compared to the right. Psych/Mental Status: Normal Affect, Appropriate Laboratory Results 08/08/20 17:40: WBC 5.9, RBC 4.82, Hgb 11.8 L, Hct 38.3 L, MCV 79.5 L, MCH 24.5 L, MCHC 30.8 L, RDW Std Deviation 53.8 H, RDW Coeff of Aly 18.8 H, Plt Count 442, MPV 9.6, Immature Gran % (Auto) 0.300, Neut % (Auto) 70.3 H, Lymph % (Auto) 22.2, [place] % (Auto) 5.8, Eos % (Auto) 0.2, Baso % (Auto) 1.2 H, Absolute Neuts (auto) 4.1, Absolute Lymphs (auto) 1.30, Nucleated RBC % 0 08/08/20 17:40: PT 32.9 H, INR 3.3 08/08/20 17:40: Sodium 132 L, Potassium 4.1, Chloride 97 L, Carbon Dioxide 30.0, Anion Gap 5, BUN 13, Creatinine 1.23, Estim Creat Clear Calc 53.01, Est GFR (MDRD) Af Amer 75, Est GFR (MDRD) Non-Af 62, BUN/Creatinine Ratio 10.6, Glucose 104, Calcium 9.2 08/09/20 05:27: Vitamin D 25-Hydroxy Pending 08/09/20 05:27: PT 32.7 H, INR 3.2 Lumbar spine x-ray reviewed and showed L2 and L3 compression fractures. Reviewed CT of the abdomen pelvis from [facility] that also showed the compression fractures of L2 and L3. Current Medications Acetaminophen (Acetaminophen 500 Mg Tablet) 1,000 mg PO Q6H PRN PRN PRN Reason: pain 1-10/fever Albuterol Sulfate (Albuterol 2.5 Mg/3 Ml Vial.Neb.) 2.5 mg INHALATION Q4H PRN PRN PRN Reason: sob/wheezing Albuterol/Ipratropium (Ipratropium/Albuterol Sulfate 3 Ml Ampul.Neb) 3 ml INHALATION Q6HWA.RT [facility] Last Admin: 08/09/20 07:19 Dose: 3 ml Documented by: Amlodipine Besylate (Amlodipine 5 Mg Tablet) 5 mg PO DAILY [facility] Last Admin: 08/09/20 08:01 Dose: 5 mg Documented by: Aspirin (Aspirin 81 Mg Tab.Chew) 81 mg PO DAILY@0800 [facility] Last Admin: 08/09/20 08:00 Dose: 81 mg Documented by: Atorvastatin Calcium (Atorvastatin Calcium 40 Mg Tablet) 40 mg PO QHS [facility] Last Admin: 08/08/20 21:05 Dose: 40 mg Documented by: Carbamazepine (Carbamazepine 200 Mg Tablet) 200 mg PO Q12 [facility] Last Admin: 08/09/20 08:00 Dose: 200 mg Documented by: Clopidogrel Bisulfate (Clopidogrel Bisulfate 75 Mg Tablet) 75 mg PO DAILY [facility] Last Admin: 08/09/20 08:00 Dose: 75 mg Documented by: Dicyclomine HCl (Dicyclomine 10 Mg Capsule) 20 mg PO TIDAC [facility] Last Admin: 08/09/20 12:34 Dose: 20 mg Documented by: Finasteride (Finasteride 5 Mg Tablet) 5 mg PO DAILY [facility] Last Admin: 08/09/20 08:00 Dose: 5 mg Documented by: Gabapentin (Gabapentin 300 Mg Capsule) 300 mg PO 0900,1600 [facility] Last Admin: 08/09/20 07:59 Dose: 300 mg Documented by: Gabapentin (Gabapentin 600 Mg Tablet) 600 mg PO QHS [facility] Last Admin: 08/08/20 21:05 Dose: 600 mg Documented by: Guaifenesin (Guaifenesin Dm 10 Ml Udc) 5 ml PO Q4H PRN PRN PRN Reason: COUGH Hydralazine HCl (Hydralazine 20 Mg/Ml Vial) 5 mg IV Q6H PRN PRN PRN Reason: sbp > 160 or dbp > 120 Hydroxyzine Pamoate (Hydroxyzine Chichi 25 Mg Capsule) 50 mg PO TID PRN PRN PRN Reason: ITCHING Metoprolol Tartrate (Metoprolol Tartrate 25 Mg Tablet) 25 mg PO BID [facility] Last Admin: 08/09/20 07:59 Dose: 25 mg Documented by: Mirtazapine (Mirtazapine 15 Mg Tablet) 15 mg PO QHS [facility] Last Admin: 08/08/20 21:05 Dose: 15 mg Documented by: Nicotine (Nicotine 14 Mg Patch) 14 mg TD DAILY [facility] Last Admin: 08/09/20 07:58 Dose: 14 mg Documented by: Nutritional Formula (Lactose Free) (Ensure Enlive 120 Ml Liquid) 120 ml PO 4X/ DAY [facility] Last Admin: 08/09/20 08:06 Dose: 120 ml Documented by: Ondansetron HCl (Ondansetron 4 Mg/2 Ml Vial) 4 mg IV Q8H PRN PRN PRN Reason: NAUSEA/VOMITING Last Admin: 08/09/20 02:24 Dose: 4 mg Documented by: Oxycodone HCl (Oxycodone 5 Mg Tablet) 5 mg PO Q4H PRN PRN PRN Reason: Pain Score 6-10/10 Last Admin: 08/09/20 12:34 Dose: 5 mg Documented by: Pantoprazole Sodium (Pantoprazole Sodium 40 Mg Tablet) 40 mg PO DAILY [facility] Last Admin: 08/09/20 07:59 Dose: 40 mg Documented by: Senna/Docusate Sodium (Senna/Docusate Sodium 1 Tablet) 2 tablet PO BID PRN PRN PRN Reason: Constipation Sertraline HCl (Sertraline 100 Mg Tablet) 100 mg PO DAILY [facility] Last Admin: 08/09/20 07:59 Dose: 100 mg Documented by: Sodium Chloride (0.9% Saline Lock 10 Ml Syringe) 10 - 40 ml IV UD PRN PRN Reason: SALINE FLUSH Last Admin: 08/09/20 02:24 Dose: 10 ml Documented by: Tamsulosin HCl (Tamsulosin Hcl 0.4 Mg Capsule) 0.4 mg PO QHS [facility] Last Admin: 08/08/20 21:05 Dose: 0.4 mg Documented by: Tizanidine HCl (Tizanidine Hcl 2 Mg Tablet) 2 mg PO Q8H PRN PRN PRN Reason: Muscle Spasms Medical Necessity - Tobacco Use Smoking Status: Current every day smoker Tobacco Use: Cigarettes Assessment/Plan All Active Problems Debility (Acute) Compression fracture (Acute) Intractable back pain (Acute) The administrative codes within the [employer] content you are accessing may have as of 03/19/2013. Please contact your IT Dept/Help Desk and request the latest Regulatory release be installed. IT Dept/Help Desk- Please refer to our FAQ page ([email or web address]_[email or web address]) or contact [employer] Customer Support at [email or web address] (Resolved) 1. Back pain Due to compression fractures of L2 and L3. Patient gives mixed history and regards to paresthesias in the left lower extremity that at least part of it is chronic and some of it may be new. Patient is adamant that his distal paresthesias and numbness are new since his falls. Therefore that would make me concerned for this being possibly radicular component. No obvious disc impingement noted on CT image. Plan: * Continue with pain control and optimize as able. Discussed with the patient that the goal of pain control is to make him functional without making him s omnolent so that he can engage in therapy * Check an MRI to rule out any radicular component to his vertebral fractures or if there is some other process that may be contributing to his left leg numbne ss. 2. Debility Patient has had debility for years but has been just having increasing falls and inability to maintain on his own. Patient expressed frustration and spoke extensively about his history of leg pain and about how he was very functional and is variety of jobs prior to the point where he could not manage on his own. Plan: * PT OT evaluate and treat * Did discuss a care home facility with the patient. Explained that it is intended to be a short-term stay and the goal is to get him functional to the point where he can safely return home. Patient expressed discussed that some of the other facilities that he is stated that they wanted to essentially liquidate his assets and I have become a permanent resident. I informed him that that is not the goal but did eventually get him back home. 3. History of VTE/lupus anticoagulant INR is slightly supratherapeutic. Plan: * Warfarin currently held. * Continue to monitor INR. Anticipate patient be able to resume warfarin on the 4. Peripheral arterial disease Patient has a history of iliac stents Plan: * Continue with aspirin, clopidogrel and statin. 5. VTE prophylaxis: Not indicated as patient is already properly anticoagulated Greater than 40 minutes of which greater than 50% of the time was spent discussing with patient about his weakness, the possibility of care home facility and the goal of him returning home in safe condition so that he can perform his ADLs. OBSV E&M: 92807 Subsequent observation care L3
[2020-08-09] MEDS: tiZANidine HCl 2 MG Tablet PO (21:27)
[2020-08-09] MEDS: Mirtazapine 15 MG Tablet PO (21:27)
[2020-08-09] MEDS: Atorvastatin Calcium 40 MG Tablet PO (21:27)
[2020-08-09] MEDS: Tamsulosin HCl 0.4 MG Capsule PO (21:27)
[2020-08-09] MEDS: Gabapentin 600 MG Tablet PO (21:27)
[2020-08-10] VITALS (11 sets, daily range): BP systolic 137–166; BP diastolic 53–81; PULSE 60–74; RESP 16–20; TEMP 36.1–36.6; O2SAT 85–95
[2020-08-10] MEDS: oxyCODONE 5 MG Tablet PO ×3 (02:23→14:25)
[2020-08-10] MEDS: 0.9% Saline Lock 10 ML Syringe IV (02:24)
[2020-08-10] MEDS: Dicyclomine 10 MG Capsule 20 MG PO ×3 (06:46→16:15)
[2020-08-10] MEDS: Ipratropium/Albuterol Sulfate 3 ML AMPUL.NEB INHALATION ×3 (07:25→19:55)
[2020-08-10] MEDS: Aspirin 81 MG TAB.CHEW PO (08:23)
[2020-08-10] MEDS: Pantoprazole Sodium 40 MG Tablet PO (08:23)
[2020-08-10] MEDS: Finasteride 5 MG Tablet PO (08:24)
[2020-08-10] MEDS: Clopidogrel Bisulfate 75 MG Tablet PO (08:24)
[2020-08-10] MEDS: amLODIPine 5 MG Tablet PO (08:24)
[2020-08-10] MEDS: Gabapentin 300 MG Capsule PO ×2 (08:24→16:15)
[2020-08-10] MEDS: Metoprolol Tartrate 25 MG Tablet PO ×2 (08:24→21:09)
[2020-08-10] MEDS: carBAMazepine 200 MG Tablet PO ×2 (08:25→21:06)
[2020-08-10] MEDS: Sertraline 100 MG Tablet PO (08:25)
[2020-08-10] MEDS: guaiFENesin Dm 10 ML UDC 5 ML PO ×2 (08:38→17:59)
[2020-08-10] MEDS: Senna/Docusate Sodium 1 Tablet 2 TABLET PO (08:38)
[2020-08-10 08:54] LABS: Vitamin D,25 Hydroxy 12.2 ng/mL
--- NOTE | 2020-08-10 09:32 | CASEMGMT ---
Social Work Note SW received message from Liseth at [facility] stating she is pt's CM. Liseth states pt has Home Delivered Meals, Emergency Response Button, Medication Dispenser, 11 hours a week aide services through [facility]. Nohemi Spears FUNNEL SETTER, SCRAP PREPARER
--- NOTE | 2020-08-10 10:46 | CASEMGMT ---
RN CM in to discuss BOYD form with patient. RN CM explained BOYD form, pt voiced understanding. Pt signed BOYD form and filed in chart. Pt provided with copy of signed BOYD form. Pt had no further questions or concerns at this time.
[2020-08-10] MEDS: Acetaminophen 500 MG Tablet 1000 MG PO (11:29)
[2020-08-10] MEDS: guaiFENesin Dm 10 ML UDC PO (12:16)
[2020-08-10] MEDS: tiZANidine HCl 2 MG Tablet PO (12:17)
--- NOTE | 2020-08-10 13:13 | CASEMGMT ---
Social Work Note SW in to speak with pt to discuss discharge planning. SW introduced self and role at [facility]. Pt is alert and orientated and answers questions appropriately. Living Arrangements: Pt states he lives alone in a mobile home with six steps to enter. PCP: Dr. Douglas Pharmacy: [facility] DME: Pt states he has two walkers, one with wheels. Transportation: Pt states he used to be able to drive, states he no longer does. SW asked pt who drives pt to appointments and pt states I haven't had any appointments. Substance Abuse Hx: Pt denied Mental Health Hx: Pt states history of anxiety and depression. Pt states he is prescribed medications through his PCP. Pt denied any history of suicidal thoughts/plans/ideations. Pt denied any current suicidal thoughts/plans/ideations. HHC: Pt is active with [facility]. Pt states he has 1 RN that comes in a week SNF: Pt states he has been to [facility] and [facility] [place] in the past. Pt state she was at [facility] for a year. Pt states he didn't like [facility]. Pt states he was at [facility] for two months and then was discharged home. Pt state she didn't think he was ready to discharge home. SW asked pt if he appealed the discharge and pt states no. SW spoke with pt regarding discharge plans. SW asked pt about SNF. Pt states he is agreeable to SNF. Patient was provided a list of SNF providers including quality and resource use data and consistent with the patient?s preferred geographic region, medical needs, and insurance network. Pt states he has difficulty reading. Pt states he would like to stay in [place] for SNF. SW verbally reviewed list of SNF with pt. The patient?s preferred provider is [facility]. SW explained referral process. NATHANIEL placed a call to Michelle at [facility], [facility] does have beds available. SW provided referral. SW faxed referral. Plan: SNF pending acceptance and pre-cert Nohemi Spears AIR PLANT ENGINEER, SKID ADZER
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
--- NOTE | 2020-08-10 19:14 | PCM.PROGNOTE ---
Patient Problems: Active and Suspected Problems Debility (Acute) Compression fracture (Acute) Intractable back pain (Acute) Subjective: Patient was seen and examined today, he underwent an MRI of his lumbar spine which showed acute compression fracture of L2, I spoke briefly with pain management by phone but unfortunately he is not available to see the patient as he is on vacation. I have elected to place the patient on OxyContin and increase the patient's oral oxycodone for now. He will be seen by PT and OT. - Physical Exam Vitals/I&O's: Vital Signs Temp Pulse Resp BP Pulse Ox 97.9 F 72 20 H 137/53 H 85 08/10/20 08:20 08/10/20 13:16 08/10/20 13:16 08/10/20 08:20 08/10/20 10:09 Oxygen Flow Rate (L/min) 2 Oxygen Delivery Method Room Air Weight: 69.3 kg Body Mass Index (BMI) 23.2 Finger Stick Blood Glucose 85 Intake and Output for Last 24 Hours 08/08/20 08/09/20 08/10/20 23:59 23:59 23:59 Intake Total 640 / 640 Output Total 750 / 875 824 / 824 Balance -110 / -235 -824 / -824 General: Alert, Oriented x3, Cooperative, Well developed, Well nourished HEENT: Atraumatic, PERRLA, EOMI, Normocephalic Oral: Moist Mucosa Neck: Supple, No JVD, Trachea Midline, Thyroid Normal Size and Texture Lungs: Clear to auscultation, Normal air movement, No rhonchi, No wheeze, No rales Cardiovascular: Regular rate, Regular Rhythm, Normal S1, Normal S2, No murmurs, PMI Normal, No rub noted, No Gallop Abdomen: Bowel Sounds Present, Soft, Non Tender, Non-Distended Extremities: No clubbing, No cyanosis, No edema, Capillary Refill Less than 3 Seconds Skin: No rashes, No breakdown Musculoskeletal: No Tenderness to Palpation of Joints or Extremities Neurological: Cranial nerves II-XII grossly intact, Neuro grossly intact, Sensory exam intact to light touch and pain Psych/Mental Status: Normal Affect, Appropriate, Alert and oriented to time, place, person, mood and affect Laboratory Results 08/09/20 05:27: Vitamin D 25-Hydroxy 12.2 08/10/20 05:45: PT 22.0 H, INR 2.0 Current Medications Acetaminophen (Acetaminophen 500 Mg Tablet) 1,000 mg PO Q6H PRN PRN PRN Reason: pain 1-10/fever Last Admin: 08/10/20 11:29 Dose: 1,000 mg Documented by: Albuterol Sulfate (Albuterol 2.5 Mg/3 Ml Vial.Neb.) 2.5 mg INHALATION Q4H PRN PRN PRN Reason: sob/wheezing Albuterol/Ipratropium (Ipratropium/Albuterol Sulfate 3 Ml Ampul.Neb) 3 ml INHALATION Q6HWA.RT [facility] Last Admin: 08/10/20 13:15 Dose: 3 ml Documented by: Amlodipine Besylate (Amlodipine 5 Mg Tablet) 5 mg PO DAILY [facility] Last Admin: 08/10/20 08:24 Dose: 5 mg Documented by: Aspirin (Aspirin 81 Mg Tab.Chew) 81 mg PO DAILY@0800 [facility] Last Admin: 08/10/20 08:23 Dose: 81 mg Documented by: Atorvastatin Calcium (Atorvastatin Calcium 40 Mg Tablet) 40 mg PO QHS [facility] Last Admin: 08/09/20 21:27 Dose: 40 mg Documented by: Carbamazepine (Carbamazepine 200 Mg Tablet) 200 mg PO Q12 [facility] Last Admin: 08/10/20 08:25 Dose: 200 mg Documented by: Clopidogrel Bisulfate (Clopidogrel Bisulfate 75 Mg Tablet) 75 mg PO DAILY [facility] Last Admin: 08/10/20 08:24 Dose: 75 mg Documented by: Dicyclomine HCl (Dicyclomine 10 Mg Capsule) 20 mg PO TIDAC [facility] Last Admin: 08/10/20 16:15 Dose: 20 mg Documented by: Finasteride (Finasteride 5 Mg Tablet) 5 mg PO DAILY [facility] Last Admin: 08/10/20 08:24 Dose: 5 mg Documented by: Gabapentin (Gabapentin 300 Mg Capsule) 300 mg PO 0900,1600 [facility] Last Admin: 08/10/20 16:15 Dose: 300 mg Documented by: Gabapentin (Gabapentin 600 Mg Tablet) 600 mg PO QHS [facility] Last Admin: 08/09/20 21:27 Dose: 600 mg Documented by: Guaifenesin (Guaifenesin Dm 10 Ml Udc) 5 ml PO Q4H PRN PRN PRN Reason: COUGH Last Admin: 08/10/20 17:59 Dose: 5 ml Documented by: Hydralazine HCl (Hydralazine 20 Mg/Ml Vial) 5 mg IV Q6H PRN PRN PRN Reason: sbp > 160 or dbp > 120 Hydroxyzine Pamoate (Hydroxyzine Chichi 25 Mg Capsule) 50 mg PO TID PRN PRN PRN Reason: ITCHING Metoprolol Tartrate (Metoprolol Tartrate 25 Mg Tablet) 25 mg PO BID [facility] Last Admin: 08/10/20 08:24 Dose: 25 mg Documented by: Mirtazapine (Mirtazapine 15 Mg Tablet) 15 mg PO QHS [facility] Last Admin: 08/09/20 21:27 Dose: 15 mg Documented by: Nicotine (Nicotine 14 Mg Patch) 14 mg TD DAILY [facility] Last Admin: 08/10/20 08:24 Dose: 14 mg Documented by: Nutritional Formula (Lactose Free) (Ensure Enlive 120 Ml Liquid) 120 ml PO 4X/DAY [facility] Last Admin: 08/10/20 16:15 Dose: 120 ml Documented by: Ondansetron HCl (Ondansetron 4 Mg/2 Ml Vial) 4 mg IV Q8H PRN PRN PRN Reason: NAUSEA/VOMITING Last Admin: 08/09/20 02:24 Dose: 4 mg Documented by: Oxycodone HCl (Oxycodone Cr 20 Mg Tablet) 20 mg PO BID [facility] Oxycodone HCl (Oxycodone 5 Mg Tablet) 5 - 10 mg PO Q4H PRN PRN PRN Reason: Pain Score 6-10/10 Pantoprazole Sodium (Pantoprazole Sodium 40 Mg Tablet) 40 mg PO DAILY [facility] Last Admin: 08/10/20 08:23 Dose: 40 mg Documented by: Senna/Docusate Sodium (Senna/Docusate Sodium 1 Tablet) 2 tablet PO BID PRN PRN PRN Reason: Constipation Last Admin: 08/10/20 08:38 Dose: 2 tablet Documented by: Sertraline HCl (Sertraline 100 Mg Tablet) 100 mg PO DAILY [facility] Last Admin: 08/10/20 08:25 Dose: 100 mg Documented by: Sodium Chloride (0.9% Saline Lock 10 Ml Syringe) 10 - 40 ml IV UD PRN PRN Reason: SALINE FLUSH Last Admin: 08/10/20 02:24 Dose: 10 ml Documented by: Tamsulosin HCl (Tamsulosin Hcl 0.4 Mg Capsule) 0.4 mg PO QHS [facility] Last Admin: 08/09/20 21:27 Dose: 0.4 mg Documented by: Tizanidine HCl (Tizanidine Hcl 2 Mg Tablet) 2 mg PO Q8H PRN PRN PRN Reason: Muscle Spasms Last Admin: 08/10/20 12:17 Dose: 2 mg Documented by: Medical Necessity - Tobacco Use Smoking Status: Current every day smoker Tobacco Use: Cigarettes Assessment/Plan All Active Problems Debility (Acute) Compression fracture (Acute) Intractable back pain (Acute) The administrative codes within the [employer] content you are accessing may have as of 03/19/2013. Please contact your IT Dept/Help Desk and request the latest Regulatory release be installed. IT Dept/Help Desk- Please refer to our FAQ page ([email or web address]) or contact [employer] Customer Support at [email or web address] (Resolved) #1 acute compression fracture of L2-secondary to osteoporosis, patient will be seen by PT and OT, I placed the patient on time release oxycodone and immediate release oxycodone. Patient may need placement in an extended care facility for at least short-term rehab services, I will discuss this with him. Patient will not be able to have a kyphoplasty at this time as his pain management doctor is out of town at this time. I will discuss this with the patient tomorrow #2 coronary artery disease #3 chronic obstructive pulmonary disease-patient is not on continuous O2 at home, he does have O2 for use as needed however #4 seizure disorder #5 type 2 diabetes #6 chronic use of anticoagulants-patient will be restarted on his Coumadin tomorrow, his dose was confirmed by nursing tonight #7 peripheral vascular disease-patient is on chronic anticoagulation with Coumadin due to peripheral vascular disease, he will be started back on his Coumadin tomorrow OBSV E&M: 54585 Subsequent observation care L3
--- NOTE | 2020-08-10 21:00 | NURSING ---
Dr. Guerin asked me to talk to patient about his coumadin dose. Pt states he takes 10 mg Monday, Monday & Monday and 5 mg on the other days of the week. He states that he takes it for blood clots in his leg and that he has 5 stents in his leg. Dr. Guerin also asked me if the patient uses home oxygen. He states he uses 2L prn (mostly at night). Further explained to pt that per Dr. Guerin he has a new compression fracture in his back and that Dr. Vizcarra is currently out of state. Therefore he will be managed with pain meds at this time and no possibility of a kyphoplasty since Dr. Vizcarra is not here. Pt acknowledged understanding.
[2020-08-10] MEDS: Atorvastatin Calcium 40 MG Tablet PO (21:05)
[2020-08-10] MEDS: Tamsulosin HCl 0.4 MG Capsule PO (21:05)
[2020-08-10] MEDS: Gabapentin 600 MG Tablet PO (21:05)
[2020-08-10] MEDS: Mirtazapine 15 MG Tablet PO (21:06)
[2020-08-11] VITALS (12 sets, daily range): BP systolic 150–171; BP diastolic 69–84; PULSE 63–80; RESP 16–22; TEMP 36.2–36.6; O2SAT 88–96
[2020-08-11] MEDS: guaiFENesin Dm 10 ML UDC 5 ML PO ×4 (04:45→22:17)
[2020-08-11] MEDS: Acetaminophen 500 MG Tablet 1000 MG PO ×2 (04:46→22:16)
[2020-08-11] MEDS: tiZANidine HCl 2 MG Tablet PO ×2 (04:46→13:21)
[2020-08-11] MEDS: oxyCODONE 5 MG Tablet PO ×3 (04:46→18:02)
[2020-08-11] MEDS: Dicyclomine 10 MG Capsule 20 MG PO ×3 (04:46→16:12)
[2020-08-11] MEDS: Albuterol 2.5 MG/3 ML VIAL.NEB. INHALATION (04:51)
[2020-08-11 05:55] LABS: International Normalized Ratio 1.2; Prothrombin Time (Protime)PT. 14.9 SECONDS (11.7-14.9)
[2020-08-11] MEDS: Ipratropium/Albuterol Sulfate 3 ML AMPUL.NEB INHALATION ×2 (07:09→19:56)
[2020-08-11] MEDS: amLODIPine 5 MG Tablet PO (09:08)
[2020-08-11] MEDS: Finasteride 5 MG Tablet PO (09:08)
[2020-08-11] MEDS: Metoprolol Tartrate 25 MG Tablet PO ×2 (09:08→22:17)
[2020-08-11] MEDS: Gabapentin 300 MG Capsule PO ×2 (09:08→16:12)
[2020-08-11] MEDS: Aspirin 81 MG TAB.CHEW PO (09:08)
[2020-08-11] MEDS: Clopidogrel Bisulfate 75 MG Tablet PO (09:08)
[2020-08-11] MEDS: Pantoprazole Sodium 40 MG Tablet PO (09:09)
[2020-08-11] MEDS: carBAMazepine 200 MG Tablet PO ×2 (09:17→22:15)
[2020-08-11] MEDS: Sertraline 100 MG Tablet PO (09:18)
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
[2020-08-11] MEDS: Senna/Docusate Sodium 1 Tablet 2 TABLET PO (13:21)
--- NOTE | 2020-08-11 17:15 | PN_ITS ---
Patient Problems: Active and Suspected Problems Debility (Acute) Compression fracture (Acute) Intractable back pain (Acute) Subjective: Patient was seen and examined today, his MRI yesterday showed an acute compression fracture of L2, I went over this with the patient today, high school social science teacher told me that the patient would like to go to an extended care facility for short-term rehab-patient seemed unaware that he requested this today. Patient does not appear lethargic today, I asked him if his pain was controlled on his present medication he states that he feels it could be increased, I have agreed to increase his OxyContin to 30 mg twice a day. Objective: General: Alert, Oriented x3, Cooperative, Well developed, Well nourished HEENT: Atraumatic, PERRLA, EOMI, Normocephalic Oral: Moist Mucosa Neck: Supple, No JVD, Trachea Midline, Thyroid Normal Size and Texture Lungs: Clear to auscultation, Normal air movement, No rhonchi, No wheeze, No rales Cardiovascular: Regular rate, Regular Rhythm, Normal S1, Normal S2, No murmurs, PMI Normal, No rub noted, No Gallop Abdomen: Bowel Sounds Present, Soft, Non Tender, Non-Distended Extremities: No clubbing, No cyanosis, No edema, Capillary Refill Less than 3 Seconds Skin: No rashes, No breakdown Musculoskeletal: No Tenderness to Palpation of Joints or Extremities Neurological: Cranial nerves II-XII grossly intact, Neuro grossly intact, Sensory exam intact to light touch and pain Psych/Mental Status: Normal Affect, Appropriate, Alert and oriented to time, place, person, mood and affect - Physical Exam Vitals/I&O's: Vital Signs Temp Pulse Resp BP Pulse Ox 97.8 F 70 18 159/76 H 94 08/11/20 13:27 08/11/20 13:36 08/11/20 13:27 08/11/20 13:27 08/11/20 13:27 Oxygen Flow Rate (L/min) 3 Oxygen Delivery Method Nasal Cannula Weight: 69.3 kg Body Mass Index (BMI) 23.2 Finger Stick Blood Glucose 85 Intake and Output for Last 24 Hours 08/09/20 08/10/20 08/11/20 23:59 23:59 23:59 Intake Total 640 / 640 250 / 250 Output Total 750 / 875 1024 / 1024 400 / 400 Balance -110 / -235 -1024 / -1024 -150 / -150 Laboratory Results 08/11/20 05:16: PT 14.9, INR 1.2 Current Medications Acetaminophen (Acetaminophen 500 Mg Tablet) 1,000 mg PO Q6H PRN PRN PRN Reason: pain 1-10/fever Last Admin: 08/11/20 04:46 Dose: 1,000 mg Documented by: Albuterol Sulfate (Albuterol 2.5 Mg/3 Ml Vial.Neb.) 2.5 mg INHALATION Q4H PRN PRN PRN Reason: sob/wheezing Last Admin: 08/11/20 04:51 Dose: 2.5 mg Documented by: Albuterol/Ipratropium (Ipratropium/Albuterol Sulfate 3 Ml Ampul.Neb) 3 ml INHALATION Q6HWA.RT [facility] Last Admin: 08/11/20 07:09 Dose: 3 ml Documented by: Amlodipine Besylate (Amlodipine 5 Mg Tablet) 5 mg PO DAILY [facility] Last Admin: 08/11/20 09:08 Dose: 5 mg Documented by: Aspirin (Aspirin 81 Mg Tab.Chew) 81 mg PO DAILY@0800 [facility] Last Admin: 08/11/20 09:08 Dose: 81 mg Documented by: Atorvastatin Calcium (Atorvastatin Calcium 40 Mg Tablet) 40 mg PO QHS [facility] Last Admin: 08/10/20 21:05 Dose: 40 mg Documented by: Carbamazepine (Carbamazepine 200 Mg Tablet) 200 mg PO Q12 [facility] Last Admin: 08/11/20 09:17 Dose: 200 mg Documented by: Clopidogrel Bisulfate (Clopidogrel Bisulfate 75 Mg Tablet) 75 mg PO DAILY [facility] Last Admin: 08/11/20 09:08 Dose: 75 mg Documented by: Dicyclomine HCl (Dicyclomine 10 Mg Capsule) 20 mg PO TIDAC [facility] Last Admin: 08/11/20 16:12 Dose: 20 mg Documented by: Finasteride (Finasteride 5 Mg Tablet) 5 mg PO DAILY [facility] Last Admin: 08/11/20 09:08 Dose: 5 mg Documented by: Gabapentin (Gabapentin 300 Mg Capsule) 300 mg PO 0900,1600 [facility] Last Admin: 08/11/20 16:12 Dose: 300 mg Documented by: Gabapentin (Gabapentin 600 Mg Tablet) 600 mg PO QHS [facility] Last Admin: 08/10/20 21:05 Dose: 600 mg Documented by: Guaifenesin (Guaifenesin Dm 10 Ml Udc) 5 ml PO Q4H PRN PRN PRN Reason: COUGH Last Admin: 08/11/20 16:12 Dose: 5 ml Documented by: Hydralazine HCl (Hydralazine 20 Mg/Ml Vial) 5 mg IV Q6H PRN PRN PRN Reason: sbp > 160 or dbp > 120 Hydroxyzine Pamoate (Hydroxyzine Chichi 25 Mg Capsule) 50 mg PO TID PRN PRN PRN Reason: ITCHING Metoprolol Tartrate (Metoprolol Tartrate 25 Mg Tablet) 25 mg PO BID [facility] Last Admin: 08/11/20 09:08 Dose: 25 mg Documented by: Mirtazapine (Mirtazapine 15 Mg Tablet) 15 mg PO QHS [facility] Last Admin: 08/10/20 21:06 Dose: 15 mg Documented by: Nicotine (Nicotine 14 Mg Patch) 14 mg TD DAILY [facility] Last Admin: 08/11/20 09:09 Dose: 14 mg Documented by: Nutritional Formula (Lactose Free) (Ensure Enlive 120 Ml Liquid) 120 ml PO 4X/DAY [facility] Last Admin: 08/11/20 16:14 Dose: Not Given Documented by: Ondansetron HCl (Ondansetron 4 Mg/2 Ml Vial) 4 mg IV Q8H PRN PRN PRN Reason: NAUSEA/VOMITING Last Admin: 08/09/20 02:24 Dose: 4 mg Documented by: Oxycodone HCl (Oxycodone Cr 20 Mg Tablet) 20 mg PO BID [facility] Last Admin: 08/11/20 09:08 Dose: 20 mg Documented by: Oxycodone HCl (Oxycodone 5 Mg Tablet) 5 - 10 mg PO Q4H PRN PRN PRN Reason: Pain Score 4-10/10 Last Admin: 08/11/20 13:21 Dose: 5 mg Documented by: Pantoprazole Sodium (Pantoprazole Sodium 40 Mg Tablet) 40 mg PO DAILY [facility] Last Admin: 08/11/20 09:09 Dose: 40 mg Documented by: Senna/Docusate Sodium (Senna/Docusate Sodium 1 Tablet) 2 tablet PO BID PRN PRN PRN Reason: Constipation Last Admin: 08/11/20 13:21 Dose: 2 tablet Documented by: Sertraline HCl (Sertraline 100 Mg Tablet) 100 mg PO DAILY [facility] Last Admin: 08/11/20 09:18 Dose: 100 mg Documented by: Sodium Chloride (0.9% Saline Lock 10 Ml Syringe) 10 - 40 ml IV UD PRN PRN Reason: SALINE FLUSH Last Admin: 08/10/20 02:24 Dose: 10 ml Documented by: Tamsulosin HCl (Tamsulosin Hcl 0.4 Mg Capsule) 0.4 mg PO QHS [facility] Last Admin: 08/10/20 21:05 Dose: 0.4 mg Documented by: Tizanidine HCl (Tizanidine Hcl 2 Mg Tablet) 2 mg PO Q8H PRN PRN PRN Reason: Muscle Spasms Last Admin: 08/11/20 13:21 Dose: 2 mg Documented by: Warfarin Sodium (Warfarin 5 Mg Tablet) 5 mg PO SuTuThSa@1700 [facility] Last Admin: 08/11/20 16:13 Dose: 5 mg Documented by: Warfarin Sodium (Warfarin 5 Mg Tablet) 10 mg PO MoWeFr@1700 [facility] Medical Necessity - Tobacco Use Smoking Status: Current every day smoker Tobacco Use: Cigarettes Assessment/Plan All Active Problems Debility (Acute) Compression fracture (Acute) Intractable back pain (Acute) The administrative codes within the [employer] content you are accessing may have exp ired as of 03/19/2013. Please contact your IT Dept/Help Desk and request the latest Regulatory release be installed. IT Dept/Help Desk- Please refer to our FAQ page ([email or web address]) or contact [employer] Customer Support at [email or web address] (Resolved) #1 acute compression fracture of L2-secondary to osteoporosis, patient will be seen by PT and OT, patient will need short-term placement in a intermediate facility, I have increased the patient's OxyContin to 30 mg twice daily #2 coronary artery disease #3 chronic obstructive pulmonary disease-patient is not on continuous O2 at home, he does have O2 for use as needed however, patient is requiring 2 to 3 L of nasal cannula oxygen to maintain his pulse ox. #4 seizure disorder #5 type 2 diabetes #6 chronic use of anticoagulants-patient's INR was 1.2 today, his Coumadin was restarted today, INR will be rechecked tomorrow #7 peripheral vascular disease-patient is on chronic anticoagulation with Coumadin due to peripheral vascular disease #8 essential hypertension-I placed the patient on Cozaar today, he is already on amlodipine. OBSV E&M: 46993 Subsequent observation care L3
[2020-08-11] MEDS: Losartan Potassium 50 MG Tablet PO (18:02)
[2020-08-11] MEDS: Gabapentin 600 MG Tablet PO (22:15)
[2020-08-11] MEDS: oxyCODONE CR 15 MG Tablet 30 MG PO (22:16)
[2020-08-11] MEDS: Mirtazapine 15 MG Tablet PO (22:16)
[2020-08-11] MEDS: Tamsulosin HCl 0.4 MG Capsule PO (22:16)
[2020-08-11] MEDS: Atorvastatin Calcium 40 MG Tablet PO (22:17)
[2020-08-12] VITALS (7 sets, daily range): BP systolic 115–126; BP diastolic 58–67; PULSE 56–63; RESP 18–20; TEMP 36.4–36.6; O2SAT 92–96
[2020-08-12] MEDS: oxyCODONE 5 MG Tablet PO ×2 (05:40→13:35)
[2020-08-12] MEDS: Acetaminophen 500 MG Tablet 1000 MG PO (05:40)
[2020-08-12] MEDS: guaiFENesin Dm 10 ML UDC 5 ML PO (05:40)
[2020-08-12] MEDS: Senna/Docusate Sodium 1 Tablet 2 TABLET PO (05:40)
[2020-08-12] MEDS: tiZANidine HCl 2 MG Tablet PO ×2 (05:41→17:14)
[2020-08-12 06:45] LABS: International Normalized Ratio 1.1; Prothrombin Time (Protime)PT. 13.3 SECONDS (11.7-14.9)
[2020-08-12] MEDS: Aspirin 81 MG TAB.CHEW PO (07:35)
[2020-08-12] MEDS: Gabapentin 300 MG Capsule PO ×2 (07:35→17:14)
[2020-08-12] MEDS: Pantoprazole Sodium 40 MG Tablet PO (09:25)
[2020-08-12] MEDS: Finasteride 5 MG Tablet PO (09:26)
[2020-08-12] MEDS: amLODIPine 5 MG Tablet PO (09:26)
[2020-08-12] MEDS: Clopidogrel Bisulfate 75 MG Tablet PO (09:26)
[2020-08-12] MEDS: Metoprolol Tartrate 25 MG Tablet PO (09:26)
[2020-08-12] MEDS: Sertraline 100 MG Tablet PO (09:26)
[2020-08-12] MEDS: Losartan Potassium 50 MG Tablet PO (09:26)
[2020-08-12] MEDS: carBAMazepine 200 MG Tablet PO (09:26)
[2020-08-12] MEDS: oxyCODONE CR 15 MG Tablet 30 MG PO (09:30)
--- NOTE | 2020-08-12 11:36 | CASEMGMT ---
Social Work Note SW spoke with physician. Pt is not asking about going to [facility]. SW in to speak with pt. Pt asked about going to [facility]. SW reminded pt that he initially said he wasn't going back to [facility] or [facility]. SW explained that pre-cert for [facility] was already submitted yesterday, would waste a day if pre-cert would need to be resubmitted. SW informed pt that if he goes to [facility] and would like to be transferred to [facility] from [facility] he can requests to do that. Pt states understanding, agreeable to discharge to [facility]. SW informed pt that if pre-cert is obtained today for [facility], he is medically ready for discharge today. Pt states understanding. Plan: [facility] pending pre-cert Nohemi Spears [employer] PUBLIC SCHOOL TEACHER, RELATIONSHIP MANAGEMENT LEAD
[2020-08-12] MEDS: Ipratropium/Albuterol Sulfate 3 ML AMPUL.NEB INHALATION (13:17)
--- NOTE | 2020-08-12 15:30 | CASEMGMT ---
Social Work Note SW received message from Michelle at [facility] stating pre-cert was obtained and pt can discharge to [facility] today.Physician updated, pt medically ready for discharge today. SW in to speak with pt. SW updated pt that pre-cert was obtained for [facility] and pt can discharge today. Pt asked what is going to be done for his back. SW informed pt that [facility] can continue to manage pain and pt will likely need to follow up as an outpatient for pain management. Pt states that 4-5 years ago when he was at [facility] he was frustrated with the care he was getting and made a comment of I'd rather be . Pt states they shipped me to a different facility. SW asked pt if he was discharged to a psychiatric hospital. Pt states I think so, it was at [facility]. Pt states that this was the only time he was at a psych hospital. Pt states a long time ago he did try to commit suicide by taking some pills. Pt currently denied any suicidal thoughts/plans/ideations. NATHANIEL spoke with pt regarding future goals for self. Pt states he would like to be able to walk without pain and be able to garden and go fishing again. Again pt denied any current suicidal thoughts/plans/ideations. Pt does have future goals for self. SW also asked pt about seizure disorder as this is needed for PAS/RR information. Pt states he had seizures after the age of 21 and he only started to get them while he was at [facility] (4-5 years ago). SW informed pt that this worker will set up transportation and let pt know time. Pt states understanding. Pt states he will call his ex- Giovana to update her. NATHANIEL spoke with RN, pt can transport via cot. NATHANIEL then received a call from pt's ex- Giovana. Giovana states she is pt's HCPOA and pt doesn't need to go to [facility] and pt needs to go to [facility] where she works at. NATHANIEL informed Giovana that pt is alert and orientated x3, is own person and is able to make own decisions. Giovana states well he makes poor decisions. NATHANIEL informed Giovana that he has a right to do that. Giovana states If you tell pt to do anything he will just do it. Giovana states he told me that you are telling him that he has to go to [facility]. SW informed Giovana that this worker provided pt with list of SNF that accept pt's insurance and pt was able to decide which SNF he wanted to go to. NATHANIEL informed Giovana that pt had told this worker yesterday that he didn't want to return to [facility] and also didn't want to go to the custodial that his ex- works at ([facility]). Giovana states well pt can't see. NATHANIEL informed Giovana that this worker did verbally go over list of SNF as well with pt and pt mentioned he wanted to stay in [facility] so this worker verbally provided pt with list of SNF that accept pt's insurance. Giovana states how is he ready for discharge from the hospital, he needs to have back surgery. NATHANIEL informed Giovana that medically pt is ready for discharge, pt will likely need to follow up as an outpatient for his back. Giovana states that is not what he told me. NATHANIEL informed pt that again pt is medically ready for discharge and that this worker can go back in to talk to pt to make sure he is still agreeable to [facility] but if pt is still agreeable to [facility] then pt will be discharged to [facility] today. NATHANIEL informed Giovana that since pt is medically ready for discharge, this worker cannot guarantee pt's insurance would cover another night in the hospital. SW and physician in to speak with pt. SW updated pt that Giovana had called this worker stating pt needed to go to [facility]. SW spoke with pt about how yesterday he told this worker he didn't want to go to [facility], [facility], or the SNF that his ex- works at. Pt confirms he said this. SW and physician reiterated to pt that he is his own person and can make his own decision but a decision needs to be made today. Pt then called his ex- Giovana and had Giovana on the phone. Pt told Giovana that he is agreeable to [facility]. NATHANIEL reiterated to pt that if he gets to [facility] and doesn't like it there he can request to transfer to a different SNF. Giovana then asked to speak to this worker again. Pt handed this worker his phone. NATHANIEL spoke with Giovana. Giovana states she is fine with pt going to [facility], she just wants pt to be happy. Giovana asked for pt to call her when he arrives to [facility] and she will bring his stuff to [facility]. SW updated pt to call Giovana once he is at [facility] and she will bring him his stuff. Both pt and Giovana aware that Giovana will not be able to visit pt while he is at [facility]. NATHANIEL faxed completed discharge paperwork to [facility] including transfer to extended care facility, signed medication list, any scripts, COVID test, COVID screening tool and PAS/RR. Original in SNF folder and copy on pt's chart. NATHANIEL completed PAS/RR, original in SNF folder and copy on pt's chart. SW accessed trip assist and earliest Physician's can transport is 5:30pm. Transportation form completed and placed on SNF folder and copy on pt's chart. SW updated pt on transportation time. RN updated. NATHANIEL placed a call to Michelle at [facility] and left message updating her on transportation time. NATHANIEL placed a call to pt's RAMANA Childers at [facility] and left message updating her on pt's discharge to [facility] today. Plan: [facility] skilled today with Physician's transporting pt via cot at 5:30pm Nohemi Spears FARMWORKER PULLET FARM, MICROFILM MOUNTER
--- NOTE | 2020-08-12 15:36 | PCM.TXEXTCAR ---
- Diet 08/12/20 11:40 Diet: Regular Food consistency:: Regular Liquid Consistency:: Regular/Thin Dietary Modifications:: Cardiac / Heart Healthy - Routine Orders/Code Status O2 Liters per Minute: 3 O2 Frequency: Continuous Keep PO Greater than or Equal to (%): 90 Routine Lab Work: - - INR daily x5 days, then q. weekly thereafter, maintain INR between 2 and 3 Code Status: Full Code - Therapies Physical Therapy: Eval and Treat Occupational Therapy: Eval and Treat - Problem/Diagnosis (1) Lumbar compression fracture Status: Acute Comment: L2 (2) Seizure disorder Status: Chronic (3) Peripheral arterial occlusive disease Status: Chronic Comment: Patient is on chronic anticoagulation (4) Hyperlipidemia Status: Chronic (5) Intractable back pain Status: Acute Comment: Due to L2 compression fracture and degenerative disc disease of the lumbar spine (6) COPD (chronic obstructive pulmonary disease) with emphysema Status: Chronic (7) 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 Status: Chronic Comment: On warfarin (8) BPH (benign prostatic hyperplasia) Status: Chronic Comment: Chronic tamsulosin and finasteride (9) Ulcerative colitis Status: Chronic (10) Osteoporosis Status: Chronic (11) Chronic respiratory failure with hypoxia Status: Chronic Comment: Due to COPD (12) Hypertension Status: Chronic - Allergies/Procedures Done in Hospital Allergies/Adverse Reactions: Allergies No Known Allergies Allergy (Verified 08/08/20 17:03) - Type of Care/Length of Stay Estimated LOS: Convalescent Care Less Than 30 days Type of Care Needed: Skilled Rehab Potential: Good Prognosis: Good - Additional Orders/Day of Discharge H&P will serve as current which was dated: 08/08/20 Day of Discharge: 08/12/20 - Follow Up Care Primary Care Physician: Daija Douglas MD [Primary Care Provider] -
--- NOTE | 2020-08-12 16:19 | NURSING ---
report called to lita pisano
--- NOTE | 2020-08-12 18:03 | NURSING ---
verbal report given to transport
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
== END 2020-08-12 18:10 | disposition skilled nursing facility (03) ==
LOC: ED 18:41 → MS3 19:16
PROVIDERS: Admitting Provider Hospitalist; Emergency Provider Emergency Medicine; PCP Internal Medicine; Visit Provider Internal Medicine
DX: M80.88XA Other osteoporosis with current pathological fracture, vertebra(e), initial encounter for fracture (principal); M51.36 Other intervertebral disc degeneration, lumbar region; E11.51 Type 2 diabetes mellitus with diabetic peripheral angiopathy without gangrene; E78.5 Hyperlipidemia, unspecified; I25.10 Atherosclerotic heart disease of native coronary artery without angina pectoris; Z23 Encounter for immunization; I10 Essential (primary) hypertension; J44.9 Chronic obstructive pulmonary disease, unspecified; G89.29 Other chronic pain; D68.62 Lupus anticoagulant syndrome; G40.909 Epilepsy, unspecified, not intractable, without status epilepticus; G47.33 Obstructive sleep apnea (adult) (pediatric); F41.9 Anxiety disorder, unspecified; N40.0 Benign prostatic hyperplasia without lower urinary tract symptoms; Z79.891 Long term (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 of opiate analgesic; K51.90 Ulcerative colitis, unspecified, without complications; F17.210 Nicotine dependence, cigarettes, uncomplicated; F32.9 Major depressive disorder, single episode, unspecified; J96.11 Chronic respiratory failure with hypoxia; Z79.01 Long term (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 of anticoagulants; Z79.899 Other long term (current) drug therapy
CPT/HCPCS: 36415; 72072; 72100; 72148; 80048; 82306; 85025; 85610; 87426; 94640; 96374; 96375; 96376; 97110; 97116; 97162; 97166; 97530; 97535; 99218; 99285; G0008; 90686; A4216; G0378; J2405

== ENCOUNTER 2021-01-20 18:50 | Emergency (ER) | payer MEDICARE, MEDICAID, SELFPAY ==
[2021-01-20 18:51] VITALS: BP 146/76; PULSE 71; RESP 14; TEMP 36.8; O2SAT 96; BMI 23.4
--- NOTE | 2021-01-20 19:10 | EKG12_ITS ---
Test Reason : CP Blood Pressure : / mmHG Vent. Rate : 071 BPM Atrial Rate : 071 BPM P-R Int : 200 ms QRS Dur : 084 ms QT Int : 360 ms P-R-T Axes : 077 071 084 degrees QTc Int : 391 ms Sinus rhythm with Premature atrial complexes Otherwise normal ECG Confirmed by CARLIN RANDALL, KENNY ([id number]), editorial director RAE NATH ([id number]) on 01/25/2021 9:39:50 AM Referred By: MR Confirmed By:KENNY GILLIS MD
--- NOTE | 2021-01-20 19:15 | RAD_ITS ---
STUDY: X-RAY CHEST REASON FOR EXAM: Male, 70 years old. Chest pain TECHNIQUE: Frontal and lateral views COMPARISON: 10/28/2018. FINDINGS: The lungs are clear and expanded. There is no demonstrated pleural abnormality. Normal size heart. Normal mediastinum and gale. Normal visualized pulmonary arteries. Calcified aortic arch and descending thoracic aorta. Degenerative changes of the thoracic spine. Normal visualized ribs, clavicles, and shoulders. There is no demonstrated abnormality of the visualized soft tissue structures of the upper abdomen. RAD/Chest PA and Lateral IMPRESSION: Normal x-ray examination of the chest. Electronically Signed: Mario Cramer DO at 20:27 EDT Tel [phone], Service support ,
[2021-01-20 19:57] VITALS: BP 122/106; PULSE 66; RESP 24; O2SAT 95
[2021-01-20 19:58] VITALS: O2SAT 95
[2021-01-20] MEDS: Aspirin 81 MG TAB.CHEW 324 MG PO (20:04)
[2021-01-20 20:18] LABS: Absolute Lymphocyte Count 1.29 X10^3/uL (0.83-4.51); Absolute Neutrophil Count 4.4 X10^3/uL (2.0-7.7); Basophil# 0.08 X10^3/uL; Basophil% 1.2 % (0-1); Eosinophil# 0.08 X10^3/uL; Eosinophils% 1.2 % (0-5); Hematocrit 33.8 % (40-54); Hemoglobin 8.9 g/dL (13.0-16.5); Lymphocyte # 1.29 X10^3/ul (0.83-4.51); Lymphocyte % 19.9 % (19-41); Mean Corp Hgb Conc 26.3 g/dL (32-36); Mean Corpuscular Hgb 19.5 pg (27.0-32.0); Mean Corpuscular Volume 74.1 fL (80-94); Monocyte# 0.56 X10^3/uL; Monocyte% 8.6 % (0-10); NRBC Flagged by Analyzer 0 % (0-5); Neutrophil # 4.44 X10^3/uL (2.7-7.7); Neutrophil % 68.6 % (47-70); POSITIVE MORPHOLOGY YES; Platelet Count 389 K/mm3 (150-450); RBC Distribution Width CV 21.2 % (11.6-14.6); RBC Distribution Width SD 55.7 fl (35.1-43.9); Red Blood Count 4.56 M/mm3 (4.6-6.2); White Blood Count 6.5 K/mm3 (4.4-11.0)
[2021-01-20 20:24] LABS: Differential Indicated SCAN CRITERIA MET
[2021-01-20 20:33] LABS: Anion Gap 5 (5-15); BUN 19 mg/dL (7-18); BUN/Creat Ratio 14.3 RATIO (10-20); Calcium,Total 9.4 mg/dL (8.5-10.1); Chloride 102 mmol/L (98-107); Creatinine, Serum 1.33 mg/dL (0.70-1.30); EST Glomerular Filtration Rate 56 mL/min (>60); Est Glom Filt Rate - Afr Amer 68 mL/min (>60); Estimated Creatinine Clearance 49.29 ml/min; Glucose 107 mg/dL (74-106); Sodium Level 137 mmol/L (136-145); Troponin-I HS 7.2 pg/mL (3.0-78.5)
[2021-01-20] MEDS: predniSONE 20 MG Tablet 40 MG PO (20:42)
[2021-01-20 20:43] LABS: Differential Comment SCANNED
[2021-01-20] MEDS: Albuterol 2.5 MG/3 ML VIAL.NEB. INHALATION (20:49)
[2021-01-20] MEDS: Ipratropium/Albuterol Sulfate 3 ML AMPUL.NEB INHALATION (20:49)
[2021-01-20 20:50] VITALS: PULSE 60; RESP 18
[2021-01-20 21:26] VITALS: BP 169/61; PULSE 66
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
[2021-01-20 22:09] LABS: Troponin-I HS 7.4 pg/mL (3.0-78.5)
== END 2021-01-20 23:27 | disposition home or self-care (01) ==
PROVIDERS: Emergency Provider Emergency Medicine; PCP Internal Medicine
DX: J44.1 Chronic obstructive pulmonary disease with (acute) exacerbation (principal); F17.210 Nicotine dependence, cigarettes, uncomplicated; E78.00 Pure hypercholesterolemia, unspecified; Z79.02 Long term (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 of antithrombotics/antiplatelets
CPT/HCPCS: 71046; 80048; 84484; 85025; 93005; 94640; 99284; A4216

== ENCOUNTER 2021-01-21 14:58 | Observation (INO) | payer MEDICARE, MEDICAID, SELFPAY ==
[2021-01-20 18:51] VITALS: BMI 23.4
[2021-01-21] VITALS (7 sets, daily range): BP systolic 116–141; BP diastolic 53–96; PULSE 55–96; RESP 15–20; TEMP 36.3–37.2; O2SAT 94–100; BMI 22.8; BMI 23.6
--- NOTE | 2021-01-21 15:28 | EKG12_ITS ---
Test Reason : SOB Blood Pressure : / mmHG Vent. Rate : 057 BPM Atrial Rate : 057 BPM P-R Int : 202 ms QRS Dur : 086 ms QT Int : 410 ms P-R-T Axes : 036 069 083 degrees QTc Int : 399 ms Sinus bradycardia with Premature atrial complexes Otherwise normal ECG Confirmed by CARLIN RANDALL, KENNY ([id number]), newspaper editor managing RAE NATH ([id number]) on 01/25/2021 10:02:16 AM Referred By: TANIYA/GARIMA Confirmed By:KENNY GILLIS MD
--- NOTE | 2021-01-21 15:28 | CT_ITS ---
STUDY: CT ABDOMEN AND PELVIS WITHOUT CONTRAST REASON FOR EXAM: Male, 70 years old. Pain RADIATION DOSAGE (If Supplied By Facility): CTDIvol = ( 7.79 ) mGy, DLP = ( 376.15 ) mGycm TECHNIQUE: Transaxial images were obtained from the dome of the diaphragm to the symphysis pubis without oral contrast, and without intravenous contrast. Sagittal and coronal images were reconstructed. Individualized dose optimization techniques were used for this CT. COMPARISON: 07/22/2020. FINDINGS: The visualized lung bases are unremarkable. The visualized portions of the heart are within normal limits. Normal liver. Normal gallbladder and extrahepatic biliary system. Normal spleen. Normal pancreas. 3.6 x 2.8 cm left adrenal hypoattenuated nodule. Right adrenal 1.7 x 1.2 cm hypoattenuated nodule. Mostly vascular calcifications in the kidneys. Nonobstructive stones cannot be excluded. Normal visualized stomach. Normal small intestine. Normal colon. The appendix is not visualized. Calcified abdominal aorta. Bilateral iliac stents. Normal inferior vena cava. Normal retroperitoneum. Normal urinary bladder. Small fatty umbilical hernia. Stable focal sclerosis possible bony island of the right ilium at the SI joint level.. Increasing compression of L2 since the previous study. CT/Abdomen/Pelvis without Cont IMPRESSION: Stable bilateral adrenal lesions. Increasing compression of L2 since the previous study. Small fatty umbilical hernia. Electronically Signed: Mario Cramer DO at 17:10 EDT Tel [phone], Service support ,
--- NOTE | 2021-01-21 15:29 | EDS_ITS ---
HPI History of Present Illness Chief Complaint: Abd Pain Detail of Chief Complaint: Cough, abdominal pain, diarrhea, and chest pain Informant: patient Narrative Narrative: Patient presents to the emergency department today with multiple comp laints. Patient states that he was in the hospital last evening in the ER and had blood work and some breathing treatments and was discharged home with diagnosis of COPD exacerbation. Patient had a chest x-ray that was normal but he is convinced that he might have pneumonia. Patient states that he went home and started having large amounts of watery stools. Patient currently on warfarin. Patient states that he has had the Covid vaccine. Patient denies any fevers. He has had some mild nausea but no vomiting. Prior similar symptoms: No PFSH PFS Medical History Asthma COPD (chronic obstructive pulmonary disease) High cholesterol Hypertension Seizures Sleep apnea Home Medications gabapentin 300 mg PO 0900,1600 01/26/14 [History Last Taken 03/26/20] tamsulosin 0.4 mg PO QHS 01/26/14 [History Last Taken 10/25/19 08:33] finasteride 5 mg PO DAILY 11/14/14 [History Last Taken 10/25/19 08:35] atorvastatin 40 mg PO QHS 09/23/15 [History Last Taken 03/25/20] metoprolol tartrate 25 mg PO BID 12/02/15 [History Last Taken 03/26/20] sertraline 100 mg PO DAILY 12/02/15 [History Last Taken 10/25/19 08:35] mirtazapine 15 mg PO QHS 08/16/19 [History Last Taken 10/25/19 20:18] acetaminophen 1,000 mg PO Q6H PRN 10/25/19 [History Last Taken Unknown] amlodipine 5 mg PO DAILY 10/25/19 [History Last Taken 03/26/20] clopidogrel 75 mg PO DAILY 10/25/19 [History Last Taken 03/26/20] dextromethorphan-guaifenesin 5 ml PO Q4H PRN 10/25/19 [History Last Taken Unknown] gabapentin 600 mg PO QHS 10/25/19 [History Last Taken 03/25/20] hydroxyzine HCl 50 mg PO TID PRN 10/25/19 [History Last Taken Unknown] tizanidine 2 mg PO Q8H PRN 10/25/19 [History Last Taken Unknown] carbamazepine 200 mg PO Q12H 10/26/19 [History Last Taken 10/25/19 20:18] omeprazole 40 mg PO DAILY 12/16/19 [History Last Taken Unknown] warfarin 10 mg PO MOWEFR 02/25/20 [History Last Taken Unknown] aspirin 81 mg PO DAILY@0800 08/08/20 [History Last Taken Unknown] warfarin 5 mg PO SUTUTHSA 08/10/20 [History Last Taken Unknown] albuterol sulfate 2.5 mg INHALATION Q4H PRN PRN vial.neb. 08/12/20 [Rx Last Taken Unknown] ipratropium-albuterol 3 ml INHALATION Q6HWA.RT ampul.neb 08/12/20 [Rx Last Taken Unknown] losartan 50 mg PO DAILY tab 08/12/20 [Rx Last Taken Unknown] prednisone 60 mg PO DAILY #15 tablet 01/20/21 [Rx Last Taken Unknown] Allergy/AdvReac Type Severity Reaction Status Date / Time No Known Allergies Allergy Verified 01/21/21 15:01 Social History Smoking Status: Current every day smoker tobacco type: cigarettes ROS ROS ED Constitutional Constitutional ED: Reports systems reviewed and no addt'l complaints, except as documented; Denies body ache(s), change in weight or chills Eyes Eyes: Denies acute decrease in peripheral vision, change in vision, double vision or loss of vision ENT ENT ED: Reports none; Denies ear pain, lip swelling, loss taste/smell, neck pain, otalgia or sore throat Cardiovascular Cardiovascular: Reports none and chest pain; Denies abdominal pain, chest pain with activity, leg edema, lightheadedness, palpitations, rapid heart rate or syncope Respiratory/Chest Respiratory/Chest: Reports none, cough and dyspnea; Denies change in mental status, dry cough, hemoptysis, shortness of breath at rest or shortness of breath with exertion Gastrointestinal Gastrointestinal: Reports none, abdominal pain, diarrhea and nausea; Denies change in stool character, hematemesis, hematochezia, melena, rectal bleeding or vomiting Genitourinary Genitourinary ED: Reports none; Denies abdominal discomfort, anuria, dysuria, genital pain or polyuria Musculoskeletal Musculoskeletal: Reports none; Denies arthralgias, back pain, difficulty walking, extremity pain, muscle weakness or myalgias Integumentary Reports none; Denies abscess or rash Neurologic Neurologic: Reports none; Denies abnormal gait, confusion, focal weakness, frequent falls, headache(s), loss of vision, numbness, paresthesias, radicular pain, vertigo or weakness Psychiatric Psychiatric: Reports systems reviewed and no addt'l complaints, except as documented and none; Denies behavioral changes, confusion, difficulty concentrating, hallucinations, suicidal ideation, tactile hallucinations or visual hallucinations Endocrine Endocrinology: Denies none, cold intolerance, excessive sweating, fatigue or heat intolerance Hematologic/Lymphatic Hematologic/Lymphatic: Reports none; Denies anemia, easy bleeding or easy bruising Allergic/Immunologic Allergic/Immunologic ED: Denies as per HPI, none, lip swelling, mouth swelling, throat swelling, tongue swelling or hives EXAM Physical Exam Const Vital Signs: 01/21/21 14:58 01/21/21 15:57 01/21/21 17:36 Temperature 98.0 F Temperature Source Temporal Pulse Rate 96 59 L 56 L Respiratory Rate 20 H 16 15 Blood Pressure 116/53 L 125/58 H Blood Pressure Mean 74 80 Pulse Ox 100 98 Oxygen Delivery Method Room Air Room Air Positive well nourished and well developed General Appearance ED: well developed and NAD HEENT Reports TM's clear and moist mucous membranes normocephalic and atraumatic; Negative for trauma or tenderness Tympanic Membrane ED: Yes TM's clear Eyes PERRL and EOMs intact bilaterally General Eye ED: Negative for pale conjunctiva or scleral icterus Neck no lymphadenopathy, supple and no JVD General: Negative for tenderness Chest Wall inspection of chest normal and palpation of chest normal Chest: Negative for tenderness Resp normal respiratory effort Resp Narrative: Patient has diffuse expiratory wheezes throughout. No sign ificant tachypnea. No accessory muscle use or retractions. Effort and Inspection: Negative for respiratory distress or pain with movement Auscultation: wheezes; Negative for rhonchi or diminished lung sounds Cardio regular rate, regular rhythm, S1 normal heart sound, S2 normal heart sound and no murmurs Peripheral Pulses: pulses 2+ throughout GI normal to inspection, nondistended, normoactive bowel sounds, soft to palpation, non-distended and no masses GI Narrative: Patient has some diffuse tenderness over left lower quadrant with some guarding. There is no rebound, rigidity, or peritoneal signs. Palpation: soft Back/Spine no CVA tenderness and no thoracic nor lumbar tenderness Extremity normal to inspection General Extremety ED: Negative for edema General Extremity: Negative for edema Neuro oriented x3, CN's II-XII intact bilaterally, no sensory deficits noted and gait normal Sensorium / Orientation: awake, alert, oriented to person, oriented to place and oriented to time Motor Exam: strength 5/5 throughout and strength abnormal Psych mental status grossly normal Skin no rashes or lesions noted and no wounds MDM MDM MDM Narrative Medical decision making narrative: Results discussed with patient. Patient is concerned about going home and just feels weak. He does have evidence of acute kidney injury I suspect likely secondary to diarrhea. Patient will be admitted for observation for IV hydration and pulmonary toilet. Lab Data Attestation: I reviewed the patient's lab results. Labs: Laboratory Results - last 24 hr 01/21/21 01/21/21 01/21/21 15:50 15:50 15:50 WBC 9.5 RBC 4.71 Hgb 9.0 L Hct 35.5 L MCV 75.4 L MCH 19.1 L MCHC 25.4 L RDW Std Deviation 57.1 H RDW Coeff of Aly 21.3 H Plt Count 415 MPV 9.9 Immature Gran % (Auto) 0.400 Neut % (Auto) 82.3 H Lymph % (Auto) 11.1 L [place] % (Auto) 5.7 Eos % (Auto) 0.0 Baso % (Auto) 0.5 Absolute Neuts (auto) 7.8 H Absolute Lymphs (auto) 1.05 Nucleated RBC % 0 Platelet Estimate SLT INC Hypochromasia 2+ Anisocytosis 2+ Microcytosis 2+ Tear Drop Cells RARE Ovalocytes 1+ Acanthocytes (Spur) RARE PT INR Sodium 134 L Potassium 4.8 Chloride 102 Carbon Dioxide 22.0 Anion Gap 10 BUN 19 H Creatinine 1.85 H Estim Creat Clear Calc 35.25 Est GFR (MDRD) Af Amer 47 L Est GFR (MDRD) Non-Af 38 L BUN/Creatinine Ratio 10.3 Glucose 96 Lactic Acid 1.8 Calcium 9.5 Total Bilirubin 0.20 AST 17 ALT 24 Alkaline Phosphatase 68 Troponin I High Sens 6.7 Total Protein 8.4 H Albumin 4.4 Globulin 4.0 Albumin/Globulin Ratio 1.1 01/21/21 16:08 WBC RBC Hgb Hct MCV MCH MCHC RDW Std Deviation RDW Coeff of Aly Plt Count MPV Immature Gran % (Auto) Neut % (Auto) Lymph % (Auto) Galax % (Auto) Eos % (Auto) Baso % (Auto) Absolute Neuts (auto) Absolute Lymphs (auto) Nucleated RBC % Platelet Estimate Hypochromasia Anisocytosis Microcytosis Tear Drop Cells Ovalocytes Acanthocytes (Spur) PT 21.0 H INR 1.9 Sodium Potassium Chloride Carbon Dioxide Anion Gap BUN Creatinine Estim Creat Clear Calc Est GFR (MDRD) Af Amer Est GFR (MDRD) Non-Af BUN/Creatinine Ratio Glucose Lactic Acid Calcium Total Bilirubin AST ALT Alkaline Phosphatase Troponin I High Sens Total Protein Albumin Globulin Albumin/Globulin Ratio Radiography Chest X-Ray - ED: 1 View Diagnostic Testing: Radiology Impression Abdomen/Pelvis CT 01/21/21 15:28 IMPRESSION: Stable bilateral adrenal lesions. Increasing compression of L2 since the previous study. Small fatty umbilical hernia. Electronically Signed: Mario Cramer DO at 17:10 EDT Tel [phone], Service support , 1 view chest x-ray obtained interpreted by myself as no acute disease process. Radiology in agreement. EKG Initial EKG: Comments: Sinus rhythm with a ventricular rate of 57 bpm with occasional PACs. Discharge Plan Triage Chief Complaint: Abd Pain ED Provider: Charis Walker Dx/Rx/DC Orders Clinical Impression: COPD exacerbation, Weakness, Gastroenteritis, Chest pain, Abdominal pain Prescriptions: No Action tamsulosin 0.4 MG capsule 0.4 mg PO QHS RF: 0 gabapentin 300 MG capsule 300 mg PO 0900,1600 RF: 0 finasteride 5 MG tablet 5 mg PO DAILY RF: 0 atorvastatin 40 MG tablet 40 mg PO QHS RF: 0 sertraline 50 MG tablet 100 mg PO DAILY RF: 0 metoprolol tartrate 25 MG tablet 25 mg PO BID RF: 0 mirtazapine 15 MG tablet 15 mg PO QHS RF: 0 tizanidine 2 MG tablet 2 mg PO Q8H PRN (Reason: Muscle Spasms) RF: 0 acetaminophen 500 MG tablet 1,000 mg PO Q6H PRN (Reason: Pain Or Fever) RF: 0 dextromethorphan-guaifenesin 5 ML liquid 5 ml PO Q4H PRN (Reason: Cough) RF: 0 clopidogrel 75 MG tablet 75 mg PO DAILY RF: 0 amlodipine 5 MG tablet 5 mg PO DAILY RF: 0 gabapentin 300 MG capsule 600 mg PO QHS RF: 0 hydroxyzine HCl 10 MG tablet 50 mg PO TID PRN (Reason: Itching) RF: 0 carbamazepine 200 MG tablet 200 mg PO Q12H RF: 0 omeprazole 40 MG capsule,delayed release(DR/EC) 40 mg PO DAILY RF: 0 warfarin 7.5 MG tablet 10 mg PO MOWEFR RF: 0 aspirin 81 MG tablet,chewable 81 mg PO DAILY@0800 RF: 0 warfarin 5 MG tablet 5 mg PO SUTUTHSA RF: 0 albuterol sulfate 2.5 MG/3 ML solution for nebulization 2.5 mg INHALATION Q4H PRN PRN (Reason: sob/wheezing) RF: 0 losartan 50 MG tablet 50 mg PO DAILY RF: 0 ipratropium-albuterol 3 ML solution for nebulization 3 ml INHALATION Q6HWA.RT RF: 0 prednisone 20 mg tablet 60 mg PO DAILY Qty: 15 RF: 0 Primary Care Provider: Daija Douglas Referrals: Daija Douglas MD [Primary Care Provider] - Disposition Disposition: Acute Care Hospital [facility]
[2021-01-21] MEDS: Ipratropium/Albuterol Sulfate 3 ML AMPUL.NEB INHALATION (15:45)
[2021-01-21] MEDS: 0.9% Normal Saline 1,000 ML 1000 ML IV (16:02)
[2021-01-21 16:18] LABS: Absolute Lymphocyte Count 1.05 X10^3/uL (0.83-4.51); Absolute Neutrophil Count 7.8 X10^3/uL (2.0-7.7); Basophil# 0.05 X10^3/uL; Basophil% 0.5 % (0-1); Hematocrit 35.5 % (40-54); Lymphocyte # 1.05 X10^3/ul (0.83-4.51); Lymphocyte % 11.1 % (19-41); Mean Corp Hgb Conc 25.4 g/dL (32-36); Mean Corpuscular Hgb 19.1 pg (27.0-32.0); Mean Corpuscular Volume 75.4 fL (80-94); Mean Platelet Vol. 9.9 fl (6.2-12.0); Monocyte# 0.54 X10^3/uL; Monocyte% 5.7 % (0-10); NRBC Flagged by Analyzer 0 % (0-5); Neutrophil # 7.82 X10^3/uL (2.7-7.7); Neutrophil % 82.3 % (47-70); POSITIVE MORPHOLOGY YES; Platelet Count 415 K/mm3 (150-450); RBC Distribution Width CV 21.3 % (11.6-14.6); RBC Distribution Width SD 57.1 fl (35.1-43.9); Red Blood Count 4.71 M/mm3 (4.6-6.2); White Blood Count 9.5 K/mm3 (4.4-11.0)
[2021-01-21 16:20] LABS: Differential Indicated SCAN CRITERIA MET
[2021-01-21 16:26] LABS: ALB/GLOB Ratio 1.1 RATIO (0.9-2.4); AST(SGOT) 17 U/L (15-37); Alanine Aminotransfer ALT/SGPT 24 U/L (16-61); Albumin, Serum 4.4 g/dL (3.2-5.0); Alkaline Phosphatase 68 U/L (45-117); Anion Gap 10 (5-15); BUN 19 mg/dL (7-18); BUN/Creat Ratio 10.3 RATIO (10-20); Calcium,Total 9.5 mg/dL (8.5-10.1); Chloride 102 mmol/L (98-107); Creatinine, Serum 1.85 mg/dL (0.70-1.30); EST Glomerular Filtration Rate 38 mL/min (>60); Est Glom Filt Rate - Afr Amer 47 mL/min (>60); Estimated Creatinine Clearance 35.25 ml/min; Glucose 96 mg/dL (74-106); Potassium 4.8 mmol/L (3.5-5.1); Protein, Total 8.4 g/dL (6.4-8.2); Sodium Level 134 mmol/L (136-145); Troponin-I HS 6.7 pg/mL (3.0-78.5)
[2021-01-21 16:27] LABS: Lactic Acid 1.8 mmol/L (0.4-1.9)
[2021-01-21 16:27] LABS: International Normalized Ratio 1.9
[2021-01-21 16:53] LABS: Acanthocytes RARE; Anisocytosis 2+; Hypochromasia 2+; Microcytosis 2+; Platelet Estimate SLT INC (ADEQ)
[2021-01-21 16:54] LABS: Ovalocyte 1+; Tear Drop Cell RARE
--- NOTE | 2021-01-21 17:44 | ED.RN ---
covid negative. discontinued covid precautions. samina chandler rn [id number]
--- NOTE | 2021-01-21 17:45 | RAD_ITS ---
STUDY: X-RAY CHEST REASON FOR EXAM: Male, 70 years old. Cough TECHNIQUE: Frontal view COMPARISON: 10/28/2018. FINDINGS: The lungs are clear and expanded. There is no demonstrated pleural abnormality. Normal size heart. Normal mediastinum and gale. Normal visualized pulmonary arteries. Calcified aortic arch and descending thoracic aorta. Normal visualized thoracic spine. Degenerative changes at the shoulders. There is no demonstrated abnormality of the visualized soft tissue structures of the upper abdomen. RAD/Chest 1 View (Portable) IMPRESSION: Normal x-ray examination of the chest. Electronically Signed: Mario Cramer DO at 18:17 EDT Tel [phone], Service support ,
--- NOTE | 2021-01-21 18:42 | PCM.HP.STD ---
Documented by User: DIEGO Antonio 01/21/21 18:55 HPI - General General Date of Admission: 01/21/21 Date of Service: 01/21/21 Chief Complaint: Gastroenteritis HPI Narrative PEDRO PABLO SIERRA, is a 70 M who presents with continued complaints of nausea and watery stools. Patient also states that he has been short of breath however patient does not appear in distress and is currently 98% on room air. Patient was seen and evaluated last night and a chest x-ray was done both last night and today which showed no acute pulmonary process yet patient is convinced that he has pneumonia. Patient is not tachycardic or tachypneic nor does patient have an elevated white blood cell count. Patient denies fever, chills, cough, chest pain, vomiting, constipation. [facility] Medical History (Updated 01/21/21 @ 19:21 by Emilie Machuca) Asthma Atrial fibrillation Chronic pain COPD (chronic obstructive pulmonary disease) Depression Diabetes Falls frequently High cholesterol Hypertension Irregular heart beat Kidney stones On home oxygen therapy Pancreatitis Seizures Sleep apnea Smoker Stroke/cerebrovascular accident Home Medications gabapentin 300 mg PO 0900,1600 01/26/14 [History Last Taken 03/26/20] tamsulosin 0.4 mg PO QHS 01/26/14 [History Last Taken 10/25/19 08:33] finasteride 5 mg PO DAILY 11/14/14 [History Last Taken 10/25/19 08:35] atorvastatin 40 mg PO QHS 09/23/15 [History Last Taken 03/25/20] metoprolol tartrate 25 mg PO BID 12/02/15 [History Last Taken 03/26/20] sertraline 100 mg PO DAILY 12/02/15 [History Last Taken 10/25/19 08:35] mirtazapine 15 mg PO QHS 08/16/19 [History Last Taken 10/25/19 20:18] acetaminophen 1,000 mg PO Q6H PRN 10/25/19 [History Last Taken Unknown] amlodipine 5 mg PO DAILY 10/25/19 [History Last Taken 03/26/20] clopidogrel 75 mg PO DAILY 10/25/19 [History Last Taken 03/26/20] dextromethorphan-guaifenesin 5 ml PO Q4H PRN 10/25/19 [History Last Taken Unknown] gabapentin 600 mg PO QHS 10/25/19 [History Last Taken 03/25/20] hydroxyzine HCl 50 mg PO TID PRN 10/25/19 [History Last Taken Unknown] tizanidine 2 mg PO Q8H PRN 10/25/19 [History Last Taken Unknown] carbamazepine 200 mg PO Q12H 10/26/19 [History Last Taken 10/25/19 20:18] omeprazole 40 mg PO DAILY 12/16/19 [History Last Taken Unknown] warfarin 10 mg PO MOWEFR 02/25/20 [History Last Taken Unknown] aspirin 81 mg PO DAILY@0800 08/08/20 [History Last Taken Unknown] warfarin 5 mg PO SUTUTHSA 08/10/20 [History Last Taken Unknown] albuterol sulfate 2.5 mg INHALATION Q4H PRN PRN vial.neb. 08/12/20 [Rx Last Taken Unknown] ipratropium-albuterol 3 ml INHALATION Q6HWA.RT ampul.neb 08/12/20 [Rx Last Taken Unknown] losartan 50 mg PO DAILY tab 08/12/20 [Rx Last Taken Unknown] prednisone 60 mg PO DAILY #15 tablet 01/20/21 [Rx Last Taken Unknown] Allergy/AdvReac Type Severity Reaction Status Date / Time No Known Allergies Allergy Verified 01/21/21 15:01 Surgical History (Updated 01/21/21 @ 19:21 by Emilie Machuca) History of appendectomy Social History Smoking Status: Current every day smoker tobacco type: cigarettes ROS Constitutional Constitutional: Reports chills; Denies anorexia, fatigue, fever(s) or weakness Cardiovascular Cardiovascular: Denies chest pain, edema or palpitations Respiratory/Chest Respiratory/Chest: Reports shortness of breath at rest and shortness of breath with exertion; Denies cough or wheezing Gastrointestinal Gastrointestinal: Reports abdominal pain, diarrhea and nausea; Denies constipation or vomiting Genitourinary Genitourinary: Denies dysuria Musculoskeletal Musculoskeletal: Denies back pain, extremity pain, joint pain or joint stiffness Integumentary Integumentary: Denies dry skin Neurologic Neurologic: Denies abnormal gait, abnormal speech, confusion, dizziness or focal weakness Psychiatric Psychiatric: Denies anxiety or depression Endocrine Endocrinology: Denies change in body appearance Hematologic/Lymphatic Hematologic/Lymphatic: Denies easy bleeding or easy bruising Vital Signs Vital Signs Vital Signs: 01/21/21 14:58 01/21/21 15:57 01/21/21 17:36 Temperature 98.0 F Temperature Source Temporal Pulse Rate 96 59 L 56 L Respiratory Rate 20 H 16 15 Blood Pressure 116/53 L 125/58 H Blood Pressure Mean 74 80 Pulse Ox 100 98 Oxygen Delivery Method Room Air Room Air Weight Weight: 150 lb Body Mass Index (BMI) 22.8 Physical Exam Const alert and oriented x3 General Appearance: cooperative HEENT normocephalic and head/scalp atraumatic Eyes conjunctivae normal and no scleral icterus Neck supple and no JVD General: trachea midline Resp normal respiratory effort, normal air movement and clear to auscultation bilaterally Cardio regular rate, regular rhythm, S1 normal heart sound and S2 normal heart sound Rate: bradycardia GI normal to inspection, nondistended, normoactive bowel sounds, soft to palpation and non-tender Auscultation: hyperactive bowel sounds Extremity normal capillary refill and no clubbing, cyanosis or edema General Extremity: no tenderness to palpation of joints or extremities Skin General Skin Exam: no breakdown and turgor normal Lesions: no lesions Rashes: no rashes Neuro no focal motor deficits and no sensory deficits noted Speech: speech normal Motor Exam: strength 5/5 throughout Results Lab / Micro Data Result Diagrams: 01/21/21 15:50 01/21/21 15:50 Labs: Laboratory Results - last 24 hr 01/21/21 15:50: WBC 9.5, RBC 4.71, Hgb 9.0 L, Hct 35.5 L, MCV 75.4 L, MCH 19.1 L, MCHC 25.4 L, RDW Std Deviation 57.1 H, RDW Coeff of Aly 21.3 H, Plt Count 415, MPV 9.9, Immature Gran % (Auto) 0.400, Neut % (Auto) 82.3 H, Lymph % (Auto) 11.1 L, [place] % (Auto) 5.7, Eos % (Auto) 0.0, Baso % (Auto) 0.5, Absolute Neuts (auto) 7.8 H, Absolute Lymphs (auto) 1.05, Nucleated RBC % 0, Platelet Estimate SLT INC, Hypochromasia 2+, Anisocytosis 2+, Microcytosis 2+, Tear Drop Cells RARE, Ovalocytes 1+, Acanthocytes (Spur) RARE 01/21/21 15:50: Sodium 134 L, Potassium 4.8, Chloride 102, Carbon Dioxide 22.0, Anion Gap 10, BUN 19 H, Creatinine 1.85 H, Estim Creat Clear Calc 35.25, Est GFR (MDRD) Af Amer 47 L, Est GFR (MDRD) Non-Af 38 L, BUN/Creatinine Ratio 10.3, Glucose 96, Calcium 9.5, Total Bilirubin 0.20, AST 17, ALT 24, Alkaline Phosphatase 68, Troponin I High Sens 6.7, Total Protein 8.4 H, Albumin 4.4, Globulin 4.0, Albumin/Globulin Ratio 1.1 01/21/21 15:50: Lactic Acid 1.8 01/21/21 16:08: PT 21.0 H, INR 1.9 Micro: Microbiology 01/21/21 15:50 Mucosa - Nose SARS-CoV-2 Antigen (Rapid) - Final Radiology Impression Abdomen/Pelvis CT 01/21/21 15:28 IMPRESSION: Stable bilateral adrenal lesions. Increasing compression of L2 since the previous study. Small fatty umbilical hernia. Electronically Signed: Mario Cramer DO at 17:10 EDT Tel [phone], Service support , Chest X-Ray 01/21/21 17:45 IMPRESSION: Normal x-ray examination of the chest. Electronically Signed: Mario Cramer DO at 18:17 EDT Tel [phone], Service support , Assessment & Plan Assessment/Plan (1) Gastroenteritis: (2) COPD exacerbation: PLAN: 1. Gastroenteritis -Admit to [facility] [place] for observation -Full liquid diet -Enteric pathogen panel ordered -PT and OT to eval and treat -As needed Zofran 2. Acute kidney injury -Likely secondary to gastroenteritis -Normal saline 125 ml/hr -BMP in a.m. -Intake and output 3. COPD exacerbation -Encourage incentive spirometry -As needed albuterol treatments ordered -Continue prednisone -DuoNebs every 6 hour while awake 4. Hypertension -Continue antihypertensive regimen -Vital signs per protocol, trend BP. Vital signs currently stable 5. Coronary artery disease -Continue anticoagulant therapy 6. Chronic pain -Continue home medication regimen DVT prophylaxis-not indicated, encourage ambulation This patient was seen by JESUS AntonioC under the supervision of Dr. Guerin. Documented by User: Dr. Ryan Guerin, DO 01/21/21 19:33 HPI - General General Date of Admission: 01/21/21 [facility] Medical History (Updated 01/21/21 @ 19:21 by Emilie Machuca) Asthma Atrial fibrillation Chronic pain COPD (chronic obstructive pulmonary disease) Depression Diabetes Falls frequently High cholesterol Hypertension Irregular heart beat Kidney stones On home oxygen therapy Pancreatitis Seizures Sleep apnea Smoker Stroke/cerebrovascular accident Home Medications gabapentin 300 mg PO 0900,1600 01/26/14 [History Last Taken 03/26/20] tamsulosin 0.4 mg PO QHS 01/26/14 [History Last Taken 10/25/19 08:33] finasteride 5 mg PO DAILY 11/14/14 [History Last Taken 10/25/19 08:35] atorvastatin 40 mg PO QHS 09/23/15 [History Last Taken 03/25/20] metoprolol tartrate 25 mg PO BID 12/02/15 [History Last Taken 03/26/20] sertraline 100 mg PO DAILY 12/02/15 [History Last Taken 10/25/19 08:35] mirtazapine 15 mg PO QHS 08/16/19 [History Last Taken 10/25/19 20:18] acetaminophen 1,000 mg PO Q6H PRN 10/25/19 [History Last Taken Unknown] amlodipine 5 mg PO DAILY 10/25/19 [History Last Taken 03/26/20] clopidogrel 75 mg PO DAILY 10/25/19 [History Last Taken 03/26/20] dextromethorphan-guaifenesin 5 ml PO Q4H PRN 10/25/19 [History Last Taken Unknown] gabapentin 600 mg PO QHS 10/25/19 [History Last Taken 03/25/20] hydroxyzine HCl 50 mg PO TID PRN 10/25/19 [History Last Taken Unknown] tizanidine 2 mg PO Q8H PRN 10/25/19 [History Last Taken Unknown] carbamazepine 200 mg PO Q12H 10/26/19 [History Last Taken 10/25/19 20:18] omeprazole 40 mg PO DAILY 12/16/19 [History Last Taken Unknown] warfarin 10 mg PO MOWEFR 02/25/20 [History Last Taken Unknown] aspirin 81 mg PO DAILY@0800 08/08/20 [History Last Taken Unknown] warfarin 5 mg PO SUTUTHSA 08/10/20 [History Last Taken Unknown] albuterol sulfate 2.5 mg INHALATION Q4H PRN PRN vial.neb. 08/12/20 [Rx Last Taken Unknown] ipratropium-albuterol 3 ml INHALATION Q6HWA.RT ampul.neb 08/12/20 [Rx Last Taken Unknown] losartan 50 mg PO DAILY tab 08/12/20 [Rx Last Taken Unknown] prednisone 60 mg PO DAILY #15 tablet 01/20/21 [Rx Last Taken Unknown] Allergy/AdvReac Type Severity Reaction Status Date / Time No Known Allergies Allergy Verified 01/21/21 15:01 Surgical History (Updated 01/21/21 @ 19:21 by Emilie Machuca) History of appendectomy Social History Smoking Status: Current every day smoker tobacco type: cigarettes Results Lab / Micro Data Result Diagrams: 01/21/21 15:50 01/21/21 15:50 Charges/Coding Addendum Addendum: Patient was seen and examined today independently of Luann Elizabeth, patient came to the ER today with multiple complaints including chest wall discomfort, abdominal discomfort, diarrhea, and cough. He had been seen in the emergency room on 01/20/2021 and given medication for COPD exacerbation and chest pain. Patient told the ER physician today that if he was not admitted, he would just end up coming back to the emergency room again for evaluation. He told this examiner he was not given any pain medications to go home on from the ER the other day and he feels that he needs pain medication. On examination he appeared in good health and spirits. Vital signs as documented. Skin warm and dry and without overt rashes. Neck without JVD, neck was supple, trachea midline, thyroid was normal. Lungs clear bilaterally, normal air movement was noted. Heart exam notable for regular rhythm, normal sounds and absence of murmurs, rubs or gallops. Abdomen unremarkable and without evidence of organomegaly, masses, or abdominal aortic enlargement. Bowel sounds are present, abdomen is not distended. Extremities nonedematous, no cyanosis was noted, no clubbing was noted. Neuro: Cranial nerves II through XII are grossly intact, no focal motor deficits were noted, sensation to light touch and pinprick intact, motor exam 5/5 throughout. Psych: Patient is alert and oriented x3, he does not appear anxious or depressed, he does not appear agitated. Patient's labs were remarkable for hemoglobin of 9, creatinine of 1.85, and a BUN of 19. Patient has CT of the abdomen and pelvis which did not reveal any acute process. Patient will be placed in observation status on Medr 3 for gastroenteritis and acute kidney injury, IV fluids will be administered, he will be reevaluated tomorrow. Patient will be seen by PT and OT. I have reviewed Luann Elizabeth's history and physical including her medical assessment and plan of care and endorse it. Visit Charges OBSV E&M: [id number] Initial observation care L3
[2021-01-21] MEDS: 0.9% Normal Saline 1,000 ML 125 ML IV (21:31)
[2021-01-21] MEDS: Acetaminophen 500 MG Tablet 1000 MG PO (22:28)
[2021-01-21] MEDS: Gabapentin 600 MG Tablet PO (22:29)
[2021-01-21] MEDS: Mirtazapine 15 MG Tablet PO (22:29)
[2021-01-21] MEDS: carBAMazepine 200 MG Tablet PO (22:30)
[2021-01-21] MEDS: Tamsulosin HCl 0.4 MG Capsule PO (22:36)
[2021-01-22] VITALS (7 sets, daily range): BP systolic 126–158; BP diastolic 56–64; PULSE 57–81; RESP 16–20; TEMP 36.4–36.7; O2SAT 88–94
[2021-01-22] MEDS: 0.9% Normal Saline 1,000 ML 125 ML IV (04:32)
[2021-01-22 05:25] LABS: Anion Gap 7 (5-15); BUN 16 mg/dL (7-18); BUN/Creat Ratio 13.6 RATIO (10-20); Calcium,Total 7.9 mg/dL (8.5-10.1); Chloride 110 mmol/L (98-107); Creatinine, Serum 1.18 mg/dL (0.70-1.30); EST Glomerular Filtration Rate 65 mL/min (>60); Est Glom Filt Rate - Afr Amer 78 mL/min (>60); Estimated Creatinine Clearance 55.55 ml/min; Glucose 123 mg/dL (74-106); Potassium 4.5 mmol/L (3.5-5.1); Sodium Level 139 mmol/L (136-145)
[2021-01-22] MEDS: Ipratropium/Albuterol Sulfate 3 ML AMPUL.NEB INHALATION ×2 (07:02→13:23)
[2021-01-22 09:21] LABS: Mucous, Urine 0 SEEN /hpf (<or=2+); Red Blood Cells-Urine 0 SEEN /hpf (0-5)
[2021-01-22 09:25] LABS: Color, Urine Yellow (Yellow); Glucose, Dipstick Normal (Normal); Ketone-Dipstick Negative (Negative); Leukocyte Esterase-Dipstick 500 /ul (Negative); Nitrite-Dipstick Positive (Negative); Occult Blood-Urine Negative /ul (Negative); Protein-Dipstick 15 mg/dl (Negative); Specific Gravity, Urine 1.015 (1.002-1.030); Urine Bilirubin Dipstick Negative (Negative); Urine Clarity Sl. Cloudy (Clear); Urine Urobilinogen Normal (Normal)
[2021-01-22 09:33] LABS: Bacteria 2+ /hpf (None Seen); Squamous Epithelial Cells - UA 0-5 SEEN /hpf (0-5); White Blood Cells 0-5 SEEN /hpf (0-5)
[2021-01-22] MEDS: Clopidogrel Bisulfate 75 MG Tablet PO (09:59)
[2021-01-22] MEDS: amLODIPine 5 MG Tablet PO (09:59)
[2021-01-22] MEDS: Pantoprazole Sodium 40 MG Tablet PO (10:00)
[2021-01-22] MEDS: predniSONE 20 MG Tablet 60 MG PO (10:00)
[2021-01-22] MEDS: Gabapentin 300 MG Capsule PO ×2 (10:00→18:01)
[2021-01-22] MEDS: Losartan Potassium 50 MG Tablet PO (10:00)
[2021-01-22] MEDS: Metoprolol Tartrate 25 MG Tablet PO (10:00)
[2021-01-22] MEDS: Sertraline 100 MG Tablet PO (10:00)
[2021-01-22] MEDS: carBAMazepine 200 MG Tablet PO (10:01)
[2021-01-22] MEDS: Aspirin 81 MG TAB.CHEW PO (10:01)
--- NOTE | 2021-01-22 11:37 | PCM.DC ---
Discharge Instructions Diet Discharge Diet: No restrictions Activity Discharge Activity: Return to Normal Activity Follow Up Care Test Results: Test results from this visit will be discussed in further detail at your follow-up appointment, if applicable. Discharge Plan Admission Admit Date/Time: 01/21/21 18:42 Primary Reason for Your Visit: diarrhea, dehydration Attending Provider: Ryan Guerin Primary Care Provider: Daija Douglas Instructions Patient Instructions: ED Chest Pain, Noncardiac Additional Instructions / Restrictions: Do not take more than 3000 mg of Tylenol daily-your hydrocodone contains Tylenol Discharge Orders/Prescriptions Prescriptions: New hydrocodone-acetaminophen 5-325 mg tablet 1 tab PO Q4H PRN (Reason: pain) 7 Days Qty: 20 RF: 0 Continued tamsulosin 0.4 MG capsule 0.4 mg PO QHS RF: 0 gabapentin 300 MG capsule 300 mg PO 0900,1600 RF: 0 finasteride 5 MG tablet 5 mg PO DAILY RF: 0 atorvastatin 40 MG tablet 40 mg PO QHS RF: 0 sertraline 50 MG tablet 100 mg PO DAILY RF: 0 metoprolol tartrate 25 MG tablet 25 mg PO BID RF: 0 mirtazapine 15 MG tablet 15 mg PO QHS RF: 0 tizanidine 2 MG tablet 2 mg PO Q8H PRN (Reason: Muscle Spasms) RF: 0 acetaminophen 500 MG tablet 1,000 mg PO Q6H PRN (Reason: Pain Or Fever) RF: 0 dextromethorphan-guaifenesin 5 ML liquid 5 ml PO Q4H PRN (Reason: Cough) RF: 0 clopidogrel 75 MG tablet 75 mg PO DAILY RF: 0 amlodipine 5 MG tablet 5 mg PO DAILY RF: 0 gabapentin 300 MG capsule 600 mg PO QHS RF: 0 hydroxyzine HCl 10 MG tablet 50 mg PO TID PRN (Reason: Itching) RF: 0 carbamazepine 200 MG tablet 200 mg PO Q12H RF: 0 omeprazole 40 MG capsule,delayed release(DR/EC) 40 mg PO DAILY RF: 0 warfarin 7.5 MG tablet 10 mg PO MOWEFR RF: 0 aspirin 81 MG tablet,chewable 81 mg PO DAILY@0800 RF: 0 warfarin 5 MG tablet 5 mg PO SUTUTHSA RF: 0 albuterol sulfate 2.5 MG/3 ML solution for nebulization 2.5 mg INHALATION Q4H PRN PRN (Reason: sob/wheezing) RF: 0 losartan 50 MG tablet 50 mg PO DAILY RF: 0 ipratropium-albuterol 3 ML solution for nebulization 3 ml INHALATION Q6HWA.RT RF: 0 prednisone 20 mg tablet 60 mg PO DAILY Qty: 15 RF: 0 Referrals / Follow Up: Daija Douglas MD [Primary Care Provider] - Within 1 Week Disposition Disposition (needs filled in before D/C Order can be placed): Home, Self Care
--- NOTE | 2021-01-22 12:35 | CASEMGMT ---
RN CM in to pt room. Therapy ordered but has not worked with pt yet. Pt states he lives alone and has aide services through [facility] and also has a nurse and therapy that comes to his home but he is unsure of the name. He would like the services to continue. TC to [facility] and spoke with Angela to see if she is aware who the skilled care is through. They do not have this on file although verified that they do see the pt. Pt waiver service immigration case worker number given. Christy Glynn [phone]. TC to her, left message requesting info. TC to main number, spoke with Frankie. States the skilled info is not on his care plan. He gave pt [facility] immigration case worker Eva at . TC to her, she is out of office until Monday. TC to 's office, spoke with Mary. She states pt is active with [facility]. TC to [facility] who state they are not active. TC to N[facility] Ashley, left message. Pt states he can call the agency once he gets home to continue services. Pt states he has a cane at home and has no other needs as a walker cannot fit in his mobile home. No further needs at this time.
--- NOTE | 2021-01-22 15:37 | DS.PCM_ITS ---
Providers Date of Admission: 01/21/21 Date of Discharge: 01/22/21 Primary Care Physician: Dr. Daija Douglas MD Reason For Visit: GASTROENTERITIS Diagnosis Discharge Diagnosis (1) Gastroenteritis: Status: Acute Code(s): K52.9 - Noninfective gastroenteritis and colitis, unspecified (2) COPD exacerbation: Status: Chronic Code(s): J44.1 - Chronic obstructive pulmonary disease with (acute) exacerbation Plan: 1. 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 #7 anemia-etiology unclear\ #8 chronic obstructive pulmonary disease Medications at Discharge Home Medications gabapentin 300 mg PO 0900,1600 01/26/14 tamsulosin 0.4 mg PO QHS 01/26/14 finasteride 5 mg PO DAILY 11/14/14 atorvastatin 40 mg PO QHS 09/23/15 metoprolol tartrate 25 mg PO BID 12/02/15 sertraline 100 mg PO DAILY 12/02/15 mirtazapine 15 mg PO QHS 08/16/19 acetaminophen 1,000 mg PO Q6H PRN 10/25/19 amlodipine 5 mg PO DAILY 10/25/19 clopidogrel 75 mg PO DAILY 10/25/19 dextromethorphan-guaifenesin 5 ml PO Q4H PRN 10/25/19 gabapentin 600 mg PO QHS 10/25/19 hydroxyzine HCl 50 mg PO TID PRN 10/25/19 tizanidine 2 mg PO Q8H PRN 10/25/19 carbamazepine 200 mg PO Q12H 10/26/19 omeprazole 40 mg PO DAILY 12/16/19 warfarin 10 mg PO MOWEFR 02/25/20 aspirin 81 mg PO DAILY@0800 08/08/20 warfarin 5 mg PO SUTUTHSA 08/10/20 albuterol sulfate 2.5 mg INHALATION Q4H PRN PRN vial.neb. 08/12/20 ipratropium-albuterol 3 ml INHALATION Q6HWA.RT ampul.neb 08/12/20 losartan 50 mg PO DAILY tab 08/12/20 prednisone 60 mg PO DAILY #15 tablet 01/20/21 hydrocodone-acetaminophen 1 tab PO Q4H PRN 7 Days #20 tab 01/22/21 Hospital Course Operations None Procedures None Summary of Care Provided Minutes Spent on Discharge: 30 Hospital Course: This 70-year-old white male was seen in the emergency room at [facility] with a chief complaint of diarrhea and generalized abdominal pain, he had been seen in the emergency room the day before and was given treatment for an exacerbation of COPD. Patient had other complaints such as chest wall discomfort and lower back pain also. Work-up in the emergency mel included a CT of the abdomen which showed no acute process, patient's creatinine was noted to be elevated, patient's white blood cell count was normal. Patient's hemoglobin was 9. Patient told the emergency room physician at the time of examination that if he was discharged home he would just return to the ER for further evaluation. Patient was placed in observation status on MedSurg 3, he had no evidence of diarrhea during his hospitalization and did not complain of abdominal pain. Patient's repeat labs after fluid administration were improved, hemoglobin did not drop during his hospitalization. On 01/22/2021, patient was seen and examined: On examination he appeared older than his stated age. Vital signs as documented. Skin warm and dry and without overt rashes. Neck without JVD, neck was supple, trachea midline, thyroid was normal. Lungs clear bilaterally, normal air movement was noted. Heart exam notable for regular rhythm, normal sounds and absence of murmurs, rubs or gallops. Abdomen unremarkable and without evidence of organomegaly, masses, or abdominal aortic enlargement. Bowel sounds are present, abdomen is not distended. Extremities nonedematous, no cyanosis was noted, no clubbing was noted. Neuro: Cranial nerves II through XII are grossly intact, no focal motor deficits were noted, sensation to light touch and pinprick intact, motor exam 5/5 throughout. Psych: Patient is alert and oriented x3, he does not appear anxious or depressed, he does not appear a gitated. Patient was discharged in stable condition on 01/22/2021. A serum iron and TIBC was drawn prior to the patient's discharge, the results of which are not known at the time of the dictation of this discharge summary. I relayed this to the patient's PCP by phone today (Dr. Douglas) for follow-up purposes. I also relayed the fact that I gave him a prescription for #20 [place] 5/325 for his chronic pain. Weight / BMI Weight Weight: 70.398 kg Body Mass Index (BMI) 23.6 ABG / Lab / Microbiology Data Result Diagrams: 01/21/21 15:50 01/22/21 04:45 Laboratory: Laboratory Results - last 24 hr 01/21/21 15:50: WBC 9.5, RBC 4.71, Hgb 9.0 L, Hct 35.5 L, MCV 75.4 L, MCH 19.1 L , MCHC 25.4 L, RDW Std Deviation 57.1 H, RDW Coeff of Aly 21.3 H, Plt Count 415, MPV 9.9, Immature Gran % (Auto) 0.400, Neut % (Auto) 82.3 H, Lymph % (Auto) 11.1 L, [place] % (Auto) 5.7, Eos % (Auto) 0.0, Baso % (Auto) 0.5, Absolute Neuts (auto) 7.8 H, Absolute Lymphs (auto) 1.05, Nucleated RBC % 0, Platelet Estimate SLT INC, Hypochromasia 2+, Anisocytosis 2+, Microcytosis 2+, Tear Drop Cells RARE, Ovalocytes 1+, Acanthocytes (Spur) RARE 01/21/21 15:50: Sodium 134 L, Potassium 4.8, Chloride 102, Carbon Dioxide 22.0, Anion Gap 10, BUN 19 H, Creatinine 1.85 H, Estim Creat Clear Calc 35.25, Est GFR (MDRD) Af Amer 47 L, Est GFR (MDRD) Non-Af 38 L, BUN/Creatinine Ratio 10.3, Glucose 96, Calcium 9.5, Total Bilirubin 0.20, AST 17, ALT 24, Alkaline Phosphatase 68, Troponin I High Sens 6.7, Total Protein 8.4 H, Albumin 4.4, Globulin 4.0, Albumin/Globulin Ratio 1.1 01/21/21 15:50: Lactic Acid 1.8 01/21/21 16:08: PT 21.0 H, INR 1.9 01/22/21 04:45: Sodium 139, Potassium 4.5, Chloride 110 H, Carbon Dioxide 22.0, Anion Gap 7, BUN 16, Creatinine 1.18, Estim Creat Clear Calc 55.55, Est GFR (MDRD) Af Amer 78, Est GFR (MDRD) Non-Af 65, BUN/Creatinine Ratio 13.6, Glucose 123 H, Calcium 7.9 L 01/22/21 09:00: Urine Color Yellow, Urine Clarity Sl. Cloudy, Urine pH 6.0, Ur Specific [place] 1.015, Urine Protein 15 H, Urine Glucose (UA) Normal, Urine Ketones Negative, Urine Occult Blood Negative, Urine Nitrite Positive H, Urine Bilirubin Negative, Urine Urobilinogen Normal, Ur Leukocyte Esterase 500 H, Urine RBC 0 SEEN, Urine WBC 0-5 SEEN, Ur Squamous Epith Cells 0-5 SEEN, Urine Bacteria 2+, Urine Mucus 0 SEEN Microbiology: Microbiology 01/21/21 15:50 Mucosa - Nose SARS-CoV-2 Antigen (Rapid) - Final Radiography Diagnostic Testing: Radiology Impression Abdomen/Pelvis CT 01/21/21 15:28 IMPRESSION: Stable bilateral adrenal lesions. Increasing compression of L2 since the previous study. Small fatty umbilical hernia. Electronically Signed: Mario Cramer DO at 17:10 EDT Tel [phone], Service support , Chest X-Ray 01/21/21 17:45 IMPRESSION: Normal x-ray examination of the chest. Electronically Signed: Maroi Cramer DO at 18:17 EDT Tel [phone], Service support , D/C Instructions Discharge Diet: No restrictions Meaningful Use Info Meaningful Use Diagnoses (Choose all that apply): None applicable Discharge Plan Admission Admit Date/Time: 01/21/21 18:42 Primary Reason for Your Visit: diarrhea, dehydration Attending Provider: Ryan Guerin Primary Care Provider: Daija Douglas Instructions Patient Instructions: ED Chest Pain, Noncardiac Additional Instructions / Restrictions: Do not take more than 3000 mg of Tylenol daily-your hydrocodone contains Tylenol Discharge Orders/Prescriptions Prescriptions: New hydrocodone-acetaminophen 5-325 mg tablet 1 tab PO Q4H PRN (Reason: pain) 7 Days Qty: 20 RF: 0 Continued tamsulosin 0.4 MG capsule 0.4 mg PO QHS RF: 0 gabapentin 300 MG capsule 300 mg PO 0900,1600 RF: 0 finasteride 5 MG tablet 5 mg PO DAILY RF: 0 atorvastatin 40 MG tablet 40 mg PO QHS RF: 0 sertraline 50 MG tablet 100 mg PO DAILY RF: 0 metoprolol tartrate 25 MG tablet 25 mg PO BID RF: 0 mirtazapine 15 MG tablet 15 mg PO QHS RF: 0 tizanidine 2 MG tablet 2 mg PO Q8H PRN (Reason: Muscle Spasms) RF: 0 acetaminophen 500 MG tablet 1,000 mg PO Q6H PRN (Reason: Pain Or Fever) RF: 0 dextromethorphan-guaifenesin 5 ML liquid 5 ml PO Q4H PRN (Reason: Cough) RF: 0 clopidogrel 75 MG tablet 75 mg PO DAILY RF: 0 amlodipine 5 MG tablet 5 mg PO DAILY RF: 0 gabapentin 300 MG capsule 600 mg PO QHS RF: 0 hydroxyzine HCl 10 MG tablet 50 mg PO TID PRN (Reason: Itching) RF: 0 carbamazepine 200 MG tablet 200 mg PO Q12H RF: 0 omeprazole 40 MG capsule,delayed release(DR/EC) 40 mg PO DAILY RF: 0 warfarin 7.5 MG tablet 10 mg PO MOWEFR RF: 0 aspirin 81 MG tablet,chewable 81 mg PO DAILY@0800 RF: 0 warfarin 5 MG tablet 5 mg PO SUTUTHSA RF: 0 albuterol sulfate 2.5 MG/3 ML solution for nebulization 2.5 mg INHALATION Q4H PRN PRN (Reason: sob/wheezing) RF: 0 losartan 50 MG tablet 50 mg PO DAILY RF: 0 ipratropium-albuterol 3 ML solution for nebulization 3 ml INHALATION Q6HWA.RT RF: 0 prednisone 20 mg tablet 60 mg PO DAILY Qty: 15 RF: 0 Referrals / Follow Up: Daija Douglas MD [Primary Care Provider] - Within 1 Week Disposition Disposition (needs filled in before D/C Order can be placed): Home, Self Care Charges/Coding Visit Charges OBSV E&M: 84525 Observation care discharge
[2021-01-22 16:06] LABS: Iron 12 ug/dL (65-175); Iron Binding Capacity,Total 359 ug/dL (250-450)
== END 2021-01-22 19:27 | disposition home or self-care (01) ==
LOC: ED 18:37 → MS3 18:48
PROVIDERS: Admitting Provider Internal Medicine; Emergency Provider Emergency Medicine; PCP Internal Medicine; Visit Provider Internal Medicine
DX: A08.4 Viral intestinal infection, unspecified (principal); E86.0 Dehydration; J44.1 Chronic obstructive pulmonary disease with (acute) exacerbation; G89.29 Other chronic pain; G40.909 Epilepsy, unspecified, not intractable, without status epilepticus; E78.00 Pure hypercholesterolemia, unspecified; I10 Essential (primary) hypertension; I25.10 Atherosclerotic heart disease of native coronary artery without angina pectoris; I48.91 Unspecified atrial fibrillation; E11.9 Type 2 diabetes mellitus without complications; G47.30 Sleep apnea, unspecified; M51.36 Other intervertebral disc degeneration, lumbar region; F17.210 Nicotine dependence, cigarettes, uncomplicated; N17.9 Acute kidney failure, unspecified; Z79.01 Long term (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 of anticoagulants; Z79.899 Other long term (current) drug therapy; Z79.02 Long term (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 of antithrombotics/antiplatelets; Z79.82 Long term (current) use of aspirin; D64.9 Anemia, unspecified
CPT/HCPCS: 36415; 71045; 74176; 80048; 80053; 81001; 83540; 83550; 83605; 84484; 85025; 85610; 87426; 93005; 94640; 96360; 96361; 99218; 99284; 99406; J7030; G0378

== ENCOUNTER 2021-01-23 09:38 | Emergency (ER) | payer MEDICARE, MEDICAID, SELFPAY ==
[2021-01-21 19:11] VITALS: BMI 23.6
[2021-01-23 09:39] VITALS: BP 208/81; PULSE 74; RESP 18; TEMP 36.9; O2SAT 96; BMI 22.8
[2021-01-23 09:40] VITALS: BP 208/81; PULSE 74; RESP 18; TEMP 36.9; O2SAT 96
[2021-01-23] MEDS: Ondansetron 8 MG Tablet 4 MG PO (10:09)
--- NOTE | 2021-01-23 10:14 | EDS_ITS ---
HPI History of Present Illness Chief Complaint: Nausea/Vomiting Informant: patient Onset/Context/Timing Onset: Days Context: Gradual Onset Timing: Intermittent Current Severity: Mild Maximum Severity: Mild Narrative Narrative: Said multiple vascular leg surgeries history of prior stroke, CT, CAD D.70-year-old male is on Coumadin for prior blood clots nausea vomiting for last 3 to 4 days. No melena. No fever. Had a prior appendectomy. States that he has had upper abdominal pain. Patient thinks it is from eating bad Fritos. He has been in the emergency department 2 other times this week. He was admitted 1 of those 2. Prior similar symptoms: Yes Recent Illness/Hospitalization: No PFSH PFS Medical History Asthma Atrial fibrillation Chronic pain COPD (chronic obstructive pulmonary disease) Depression Diabetes Falls frequently High cholesterol Hypertension Irregular heart beat Kidney stones On home oxygen therapy Pancreatitis Seizures Sleep apnea Smoker Stroke/cerebrovascular accident Home Medications gabapentin 300 mg PO 0900,1600 01/26/14 [History Last Taken 03/26/20] tamsulosin 0.4 mg PO QHS 01/26/14 [History Last Taken 10/25/19 08:33] finasteride 5 mg PO DAILY 11/14/14 [History Last Taken 10/25/19 08:35] atorvastatin 40 mg PO QHS 09/23/15 [History Last Taken 03/25/20] metoprolol tartrate 25 mg PO BID 12/02/15 [History Last Taken 03/26/20] sertraline 100 mg PO DAILY 12/02/15 [History Last Taken 10/25/19 08:35] mirtazapine 15 mg PO QHS 08/16/19 [History Last Taken 10/25/19 20:18] acetaminophen 1,000 mg PO Q6H PRN 10/25/19 [History Last Taken Unknown] amlodipine 5 mg PO DAILY 10/25/19 [History Last Taken 03/26/20] clopidogrel 75 mg PO DAILY 10/25/19 [History Last Taken 03/26/20] dextromethorphan-guaifenesin 5 ml PO Q4H PRN 10/25/19 [History Last Taken Unknown] gabapentin 600 mg PO QHS 10/25/19 [History Last Taken 03/25/20] hydroxyzine HCl 50 mg PO TID PRN 10/25/19 [History Last Taken Unknown] tizanidine 2 mg PO Q8H PRN 10/25/19 [History Last Taken Unknown] carbamazepine 200 mg PO Q12H 10/26/19 [History Last Taken 10/25/19 20:18] omeprazole 40 mg PO DAILY 12/16/19 [History Last Taken Unknown] warfarin 10 mg PO MOWEFR 02/25/20 [History Last Taken Unknown] aspirin 81 mg PO DAILY@0800 08/08/20 [History Last Taken Unknown] warfarin 5 mg PO SUTUTHSA 08/10/20 [History Last Taken Unknown] albuterol sulfate 2.5 mg INHALATION Q4H PRN PRN vial.neb. 08/12/20 [Rx Last Taken Unknown] ipratropium-albuterol 3 ml INHALATION Q6HWA.RT ampul.neb 08/12/20 [Rx Last Taken Unknown] losartan 50 mg PO DAILY tab 08/12/20 [Rx Last Taken Unknown] prednisone 60 mg PO DAILY #15 tablet 01/20/21 [Rx Last Taken Unknown] hydrocodone-acetaminophen 1 tab PO Q4H PRN 7 Days #20 tab 01/22/21 [Rx Last Taken Unknown] ondansetron HCl [Zofran] 4 mg PO Q6H PRN #10 tab 01/23/21 [Rx Last Taken Unknown] Allergy/AdvReac Type Severity Reaction Status Date / Time No Known Allergies Allergy Verified 01/23/21 09:41 Surgical History History of appendectomy Social History Smoking Status: Current every day smoker tobacco type: cigarettes ROS ROS ED ROS Narrative Nausea, vomiting and diarrhea. Review of Systems ROS Unobtainable: Denies due to encephalopathy Constitutional Constitutional ED: Denies chills or fever(s) Eyes Eyes: Denies change in vision ENT ENT ED: Denies ear pain or sore throat Cardiovascular Cardiovascular: Denies chest pain Respiratory/Chest Respiratory/Chest: Denies cough or dyspnea Gastrointestinal Gastrointestinal: Reports abdominal pain, diarrhea, nausea and vomiting; Denies constipation or melena Genitourinary Genitourinary ED: Denies dysuria Musculoskeletal Musculoskeletal: Denies myalgias Integumentary Denies rash Neurologic Neurologic: Denies headache(s) Psychiatric Psychiatric: Denies depression Endocrine Endocrinology: Denies polyuria Allergic/Immunologic Allergic/Immunologic ED: Denies urticaria EXAM Physical Exam Narrative Exam Narrative: Older male no acute distress. Vital signs stable afebrile. H EENT exam dry extremities. Neck nontender. Lungs coarse breath sounds bilaterally. No rales or rhonchi. Heart regular rate and rhythm rate about 70 no murmur. Abdomen soft. Nondistended normal bowel sounds no peritoneal signs. He complains of mild upper abdominal tenderness. Nondistended. No signs of obstruction. No masses. No hernias. Moving all 4 extremities. No edema. He is awake and alert. No focal motor deficits. Const Vital Signs: 01/23/21 09:39 01/23/21 09:40 Temperature 98.4 F 98.4 F Temperature Source Temporal Temporal Pulse Rate 74 74 Respiratory Rate 18 18 Blood Pressure 208/81 H 208/81 H Blood Pressure Mean 123 123 Pulse Ox 96 96 Oxygen Delivery Method Room Air Room Air Positive well nourished and well developed General Appearance ED: well developed and NAD HEENT Reports dry mucous membranes Negative for trauma or tenderness Mouth ED: Yes dry mucous membranes Mouth: dry mucous membranes Eyes PERRL and EOMs intact bilaterally Neck no lymphadenopathy, supple and no JVD General: Negative for tenderness Chest Wall inspection of chest normal and palpation of chest normal Resp normal respiratory effort Resp Narrative: Coarse breath sounds bilaterally. Auscultation: Negative for rales or rhonchi Cardio regular rate, regular rhythm, S1 normal heart sound, S2 normal heart sound and no murmurs GI normal to inspection, nondistended, normoactive bowel sounds, non-distended and no masses; Negative for non-tender GI Narrative: Mild epigastric tenderness. No signs of obstruction. No peritoneal signs Inspection: Negative for abdominal distention Auscultation: normoactive bowel sounds; Negative for hyperactive bowel sounds or hypoactive bowel sounds Palpation: soft and tender; Negative for guarding or rebound tenderness present Back/Spine no CVA tenderness Extremity normal to inspection General Extremety ED: Negative for edema or tenderness General Extremity: Negative for edema Neuro oriented x3 and CN's II-XII intact bilaterally Sensorium / Orientation: alert Motor Exam: strength 5/5 throughout Psych mental status grossly normal Attitude: No agitated Mood & Affect: Negative for depressed or tearful Skin no rashes or lesions noted and no wounds MDM MDM MDM Narrative Medical decision making narrative: 70-year-old male nausea and vomiting history of pancreatitis. Clinically appears mildly dehydrated with mild epigastric abdominal pain. I will run screening labs. I do not think he needs any imaging at this time. Receive IV fluids and Zofran and will go from there. Repeat exam at 11:15 AM patient doing well. Abdomen is benign. He denies discussed outpatient therapy. I explained to him he really does not meet criteria for admission. He will be discharged home with a prescription for Zofran. Lab Data Attestation: I reviewed the patient's lab results. Lab results narrative: CBC shows a mildly elevated white count 13.8. Hemoglobin is 9 which is his baseline. Chemistries show sodium 131. Gap of 8. Creatinine 1.1. Liver enzymes unremarkable. Lipase normal at 98. Labs: Laboratory Results - last 24 hr 01/23/21 01/23/21 10:35 10:35 WBC 13.8 H RBC 4.61 Hgb 9.1 L Hct 32.6 L MCV 70.7 L D MCH 19.7 L MCHC 27.9 L D RDW Std Deviation 51.8 H RDW Coeff of Aly 20.6 H Plt Count 432 MPV 9.4 Immature Gran % (Auto) 0.400 Neut % (Auto) 85.9 H Lymph % (Auto) 7.7 L [place] % (Auto) 5.9 Eos % (Auto) 0.0 Baso % (Auto) 0.1 Absolute Neuts (auto) 11.9 H Absolute Lymphs (auto) 1.06 Nucleated RBC % 0 Sodium 131 L Potassium 3.8 Chloride 95 L Carbon Dioxide 28.0 Anion Gap 8 BUN 19 H Creatinine 1.11 Estim Creat Clear Calc 58.74 Est GFR (MDRD) Af Amer 84 Est GFR (MDRD) Non-Af 69 BUN/Creatinine Ratio 17.1 Glucose 109 H Calcium 9.3 Total Bilirubin 0.40 AST 14 L ALT 23 Alkaline Phosphatase 62 Total Protein 8.3 H Albumin 4.5 Globulin 3.8 Albumin/Globulin Ratio 1.2 Lipase 98 Discharge Plan Triage Chief Complaint: Nausea/Vomiting ED Provider: Aris Dixon Dx/Rx/DC Orders Clinical Impression: Abdominal pain, Vomiting and diarrhea Instructions: Abdominal Pain, ED Vomiting (Adult) Prescriptions: New ondansetron HCl [Zofran] 4 mg tablet 4 mg PO Q6H PRN (Reason: nausea and vomiting) Qty: 10 RF: 0 No Action tamsulosin 0.4 MG capsule 0.4 mg PO QHS RF: 0 gabapentin 300 MG capsule 300 mg PO 0900,1600 RF: 0 finasteride 5 MG tablet 5 mg PO DAILY RF: 0 atorvastatin 40 MG tablet 40 mg PO QHS RF: 0 sertraline 50 MG tablet 100 mg PO DAILY RF: 0 metoprolol tartrate 25 MG tablet 25 mg PO BID RF: 0 mirtazapine 15 MG tablet 15 mg PO QHS RF: 0 tizanidine 2 MG tablet 2 mg PO Q8H PRN (Reason: Muscle Spasms) RF: 0 acetaminophen 500 MG tablet 1,000 mg PO Q6H PRN (Reason: Pain Or Fever) RF: 0 dextromethorphan-guaifenesin 5 ML liquid 5 ml PO Q4H PRN (Reason: Cough) RF: 0 clopidogrel 75 MG tablet 75 mg PO DAILY RF: 0 amlodipine 5 MG tablet 5 mg PO DAILY RF: 0 gabapentin 300 MG capsule 600 mg PO QHS RF: 0 hydroxyzine HCl 10 MG tablet 50 mg PO TID PRN (Reason: Itching) RF: 0 carbamazepine 200 MG tablet 200 mg PO Q12H RF: 0 omeprazole 40 MG capsule,delayed release(DR/EC) 40 mg PO DAILY RF: 0 warfarin 7.5 MG tablet 10 mg PO MOWEFR RF: 0 aspirin 81 MG tablet,chewable 81 mg PO DAILY@0800 RF: 0 warfarin 5 MG tablet 5 mg PO [facility] RF: 0 albuterol sulfate 2.5 MG/3 ML solution for nebulization 2.5 mg INHALATION Q4H PRN PRN (Reason: sob/wheezing) RF: 0 losartan 50 MG tablet 50 mg PO DAILY RF: 0 ipratropium-albuterol 3 ML solution for nebulization 3 ml INHALATION Q6HWA.RT RF: 0 prednisone 20 mg tablet 60 mg PO DAILY Qty: 15 RF: 0 hydrocodone-acetaminophen 5-325 mg tablet 1 tab PO Q4H PRN (Reason: pain) 7 Days Qty: 20 RF: 0 Primary Care Provider: Daija Douglas Referrals: Daija Douglas MD [Primary Care Provider] - 1-2 Days if not improving Activity Restrictions/Additional Instructions: Plenty of fluids and rest. Increase your diet slowly as tolerated. Zofran as needed for nausea. If not improving follow-up with your primary care physician. At this time there is no reason to admit to the hospital. Disposition Disposition: Home, Self Care
[2021-01-23] MEDS: 0.9% Normal Saline 1,000 ML 1000 ML IV (10:47)
[2021-01-23 10:49] LABS: Absolute Lymphocyte Count 1.06 X10^3/uL (0.83-4.51); Absolute Neutrophil Count 11.9 X10^3/uL (2.0-7.7); Basophil# 0.02 X10^3/uL; Basophil% 0.1 % (0-1); Hematocrit 32.6 % (40-54); Hemoglobin 9.1 g/dL (13.0-16.5); Lymphocyte # 1.06 X10^3/ul (0.83-4.51); Lymphocyte % 7.7 % (19-41); Mean Corp Hgb Conc 27.9 g/dL (32-36); Mean Corpuscular Hgb 19.7 pg (27.0-32.0); Mean Corpuscular Volume 70.7 fL (80-94); Mean Platelet Vol. 9.4 fl (6.2-12.0); Monocyte# 0.82 X10^3/uL; Monocyte% 5.9 % (0-10); NRBC Flagged by Analyzer 0 % (0-5); Neutrophil # 11.85 X10^3/uL (2.7-7.7); Neutrophil % 85.9 % (47-70); POSITIVE MORPHOLOGY YES; Platelet Count 432 K/mm3 (150-450); RBC Distribution Width CV 20.6 % (11.6-14.6); RBC Distribution Width SD 51.8 fl (35.1-43.9); Red Blood Count 4.61 M/mm3 (4.6-6.2); White Blood Count 13.8 K/mm3 (4.4-11.0)
[2021-01-23 10:55] LABS: Differential Indicated SCAN CRITERIA MET
[2021-01-23 11:09] LABS: ALB/GLOB Ratio 1.2 RATIO (0.9-2.4); AST(SGOT) 14 U/L (15-37); Alanine Aminotransfer ALT/SGPT 23 U/L (16-61); Albumin, Serum 4.5 g/dL (3.2-5.0); Alkaline Phosphatase 62 U/L (45-117); Anion Gap 8 (5-15); BUN 19 mg/dL (7-18); BUN/Creat Ratio 17.1 RATIO (10-20); Calcium,Total 9.3 mg/dL (8.5-10.1); Chloride 95 mmol/L (98-107); Creatinine, Serum 1.11 mg/dL (0.70-1.30); EST Glomerular Filtration Rate 69 mL/min (>60); Est Glom Filt Rate - Afr Amer 84 mL/min (>60); Estimated Creatinine Clearance 58.74 ml/min; Globulin 3.8 g/dL (2.2-4.2); Glucose 109 mg/dL (74-106); Lipase 98 U/L (73-393); Potassium 3.8 mmol/L (3.5-5.1); Protein, Total 8.3 g/dL (6.4-8.2); Sodium Level 131 mmol/L (136-145)
[2021-01-23 11:28] VITALS: BP 176/98; PULSE 99; RESP 16; O2SAT 97
[2021-01-23 11:35] LABS: Anisocytosis 1+; Hypochromasia 2+; Microcytosis 1+; Platelet Estimate ADEQUATE (ADEQ)
== END 2021-01-23 11:35 | disposition home or self-care (01) ==
PROVIDERS: Emergency Provider Emergency Medicine; PCP Internal Medicine
DX: R10.10 Upper abdominal pain, unspecified (principal); R11.2 Nausea with vomiting, unspecified; R19.7 Diarrhea, unspecified; F17.210 Nicotine dependence, cigarettes, uncomplicated; I25.10 Atherosclerotic heart disease of native coronary artery without angina pectoris; Z86.73 Personal history of transient ischemic attack (TIA), and cerebral infarction without residual deficits; Z86.718 Personal history of other venous thrombosis and embolism
CPT/HCPCS: 80053; 83690; 85025; 99283; J7030; A4216

== ENCOUNTER 2021-04-01 14:12 | Emergency (ER) | payer MEDICARE, MEDICAID, SELFPAY ==
[2021-04-01 14:13] VITALS: BP 147/74; PULSE 63; RESP 20; TEMP 36.7; O2SAT 96; BMI 23.6
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
[2021-04-01] MEDS: Acetaminophen 500 MG Tablet 1000 MG PO (14:51)
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
[2021-04-01 15:50] VITALS: BP 149/63; PULSE 53; RESP 18
== END 2021-04-01 15:53 | disposition home or self-care (01) ==
PROVIDERS: Emergency Provider Emergency Medicine; PCP Internal Medicine
DX: S20.219A Contusion of unspecified front wall of thorax, initial encounter (principal); F17.210 Nicotine dependence, cigarettes, uncomplicated; G47.30 Sleep apnea, unspecified; Z86.73 Personal history of transient ischemic attack (TIA), and cerebral infarction without residual deficits; Z86.718 Personal history of other venous thrombosis and embolism; Z79.01 Long term (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 of anticoagulants; Y04.2XXA Assault by strike against or bumped into by another person, initial encounter
CPT/HCPCS: 71046; 99283

== ENCOUNTER → 2021-05-31 11:17 | Outpatient (CLI) | payer MEDICARE, MEDICAID, SELFPAY ==
--- NOTE | 2021-05-31 13:07 | NEURO_ITS ---
NCS and/or EMG Patient Report Ordering Doctor: Jaden Toribio DATE OF SERVICE: 05/31/21 Indication: Intermittent, bilateral hand numbness. Affects all fingers, but symptoms are more prominent on the right side. Condition is worse in cold weather. He reports neck stiffness, but no radicular pain. Findings: Nerve conduction studies were performed in the right and left upper extremities. The right median motor study recording the abductor pollicis brevis showed a normal amplitude, mildly prolonged distal latency and slightly slowed conduction velocity. The right ulnar motor study recording the abductor digiti minimi showed a normal amplitude, normal distal latency and slightly slowed conduction velocity. No conduction block or focal slowing was present across the elbow. The right median sensory response recording digit two showed a normal amplitude, borderline prolonged latency and slowed conduction velocity. The right ulnar sensory response recording digit five showed a borderline normal amplitude, prolonged latency and slowed conduction velocity. The right radial sensory response recording over the extensor snuff box showed a normal amplitude, normal latency and mildly slowed conduction velocity. Right median-ulnar lumbrical / interosseous motor latencies showed a prolonged median latency compared to the ulnar. The left median motor study recording the abductor pollicis brevis showed a normal amplitude, mildly prolonged distal latency and slowed conduction velocity. The left ulnar motor study recording the abductor digiti minimi showed a normal amplitude, normal distal latency and mildly slowed conduction velocity. No conduction block or focal slowing was present across the elbow. The left median sensory response recording digit two showed a normal amplitude, normal latency and borderline conduction velocity. The left ulnar sensory response recording digit five showed a borderline amplitude, normal latency and mildly slowed conduction velocity. The left radial sensory response recording over the extensor snuff box showed a normal amplitude, normal latency and slowed conduction velocity. Left median-ulnar lumbrical / interosseous motor latencies showed a normal median latency compared to the ulnar. Needle EMG of the right upper extremity muscles was performed. The paraspinal muscles were not sampled due to the patient's anticoagulation. No active denervation was seen in any muscle, however, insertional activity was slightly increased in the first dorsal interosseous. Motor units in the abductor pollicis brevis were distant and could not be assessed for morphology. The deltoid, triceps, carpi radialis and first dorsal interosseous muscles demonstrated no rmal motor unit morphology, activation and recruitment patterns. Needle EMG of the left upper extremity muscles was performed. The paraspinal muscles were not sampled due to the patient's anticoagulation. No active denervation was seen in any muscle. Motor units were large and long with reduced recruitment in the triceps muscle. Motor units were slightly large amplitude and long duration with normal recruitment in the flexor carpi radialis muscle. The other sampled muscles in the left upper extremity were largely unremarkable. Impression: This is an abnormal and complex study. There is electrophysiologic evidence consistent with: 1. 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 2. A mild, chronic, left C6-7 radiculopathy. There was is no active denervation to suggest ongoing axonal injury. In addition, there are subtle findings suggestive, but not diagnostic of additional pathology. First, the right ulnar nerve demonstrated focal slowing across the wrist. This can be seen in an ulnar neuropathy across Guyon's canal, however, a diagnosis cannot be reached based on a single abnormality. If this is a clinical consideration, it can be explored further with a neuromuscular ul trasound of the right wrist. Lastly, the diffusely slow nerve conductions are of unclear significance, but raises the possibility of a more generalized underlying polyneuropathy. This was not explored further as it was not the indication for the current study. Kenan Trujillo D.O. Multi Select Codes Neurology Neurology Interp Codes: 91632-72 Musc tst done w/nerv tst early (interp) (Qty:2) and 18219-16 [facility] cnd test 13/> studies (interp)
== END ==
PROVIDERS: PCP Internal Medicine; Referring Provider Orthopaedic Surgery; Visit Provider Orthopaedic Surgery
DX: G56.03 Carpal tunnel syndrome, bilateral upper limbs (principal); I73.9 Peripheral vascular disease, unspecified
CPT/HCPCS: 95885; 95913

== ENCOUNTER 2021-06-04 23:00 | Emergency (ER) | payer MEDICARE, MEDICAID, SELFPAY ==
[2021-06-04 23:01] VITALS: BP 202/99; PULSE 87; RESP 18; TEMP 36.2; O2SAT 97; BMI 23.6
[2021-06-04] MEDS: Diphth,Pertuss(Acell),Tet Vac 0.5 ML Vial IM (23:28)
[2021-06-04] MEDS: Lidocaine 1% (20 ml mdv) 20 ML Vial INFILT (23:30)
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
[2021-06-05 00:37] VITALS: RESP 18
== END 2021-06-05 00:42 | disposition home or self-care (01) ==
PROVIDERS: Emergency Provider Emergency Medicine; PCP Internal Medicine
DX: S61.411A Laceration without foreign body of right hand, initial encounter (principal); F17.210 Nicotine dependence, cigarettes, uncomplicated; G47.30 Sleep apnea, unspecified; Y09 Assault by unspecified means
CPT/HCPCS: 12002; 90471; 90715; 99283

== ENCOUNTER 2021-06-12 16:14 | Emergency (ER) | payer MEDICARE, MEDICAID, SELFPAY ==
[2021-06-12 16:15] VITALS: BP 223/96; PULSE 59; RESP 18; TEMP 36; O2SAT 96; BMI 24.6
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
[2021-06-12] MEDS: BACITRACIN 15 GM Tube 1 APPLIC TOPICAL (16:44)
[2021-06-12] MEDS: HYDROcodone Bitartrate/Apap 5/325 Tablet PO (16:46)
[2021-06-12 16:55] VITALS: BP 182/81; PULSE 61
== END 2021-06-12 16:58 | disposition home or self-care (01) ==
PROVIDERS: Emergency Provider Emergency Medicine; PCP Internal Medicine
DX: T23.341A Burn of third degree of multiple right fingers (nail), including thumb, initial encounter (principal); F17.210 Nicotine dependence, cigarettes, uncomplicated; G47.30 Sleep apnea, unspecified; X08.8XXA Exposure to other specified smoke, fire and flames, initial encounter
CPT/HCPCS: 99283

== ENCOUNTER 2021-08-12 00:30 | Emergency (ER) | payer MEDICARE, MEDICAID, SELFPAY ==
[2021-08-12 00:32] VITALS: BP 224/88; PULSE 76; RESP 16; TEMP 36.4; O2SAT 96; BMI 24.8
[2021-08-12 00:47] VITALS: BP 196/88
--- NOTE | 2021-08-12 00:55 | ED.VIS.GI ---
HPI HPI - GI History of Present Illness Chief Complaint: Nausea/Vomiting Informant: patient Abdominal Pain/Flank Pain Onset: Today and Hours Context: Gradual Onset Timing: Continuous Quality: Aching Location: Diffuse Current Severity: Mild Maximum Severity: Mild Nausea/Vomiting/Emesis GI Symptom: Positive for Nausea and Vomiting Onset: Today Quality: Positive for Nonbilious Severity: Mild Diarrhea/Melena/Hematochezia GI Symptom: Negative for Diarrhea, Melena and Hematochezia Associated Symptoms Associated Symptoms: Negative for Dysuria, Frequency, Hematuria and Urgency Narrative Narrative: 71-year-old male history of A. fib, chronic pain, peripheral arterial disease, COPD, diabetes, pancreatitis with a prior appendectomy. He is on the blood thinners Coumadin and Plavix secondary to his A. fib and peripheral arterial disease. Patient states that he ate a fruit cocktail this evening and several minutes after that started having nausea and vomiting. Also diffuse abdominal discomfort. Prior to that he was not having any abdominal pain. Denies any hematemesis. Denies any melena or diarrhea. No dysuria. He has had no change in his bowel movements. He denies any fevers. Prior similar symptoms: No Recent Illness/Hospitalization: No PFSH PFSH Medical History Asthma Atrial fibrillation Chronic pain COPD (chronic obstructive pulmonary disease) Depression Diabetes Falls frequently High cholesterol Hypertension Irregular heart beat Kidney stones On home oxygen therapy Pancreatitis Seizures Sleep apnea Smoker Stroke/cerebrovascular accident Home Medications gabapentin 300 mg PO 0900,1600 01/26/14 [History Last Taken 03/26/20] tamsulosin 0.4 mg PO QHS 01/26/14 [History Last Taken 10/25/19 08:33] finasteride 5 mg PO DAILY 11/14/14 [History Last Taken 10/25/19 08:35] atorvastatin 40 mg PO QHS 09/23/15 [History Last Taken 03/25/20] metoprolol tartrate 25 mg PO BID 12/02/15 [History Last Taken 03/26/20] sertraline 100 mg PO DAILY 12/02/15 [History Last Taken 10/25/19 08:35] mirtazapine 15 mg PO QHS 08/16/19 [History Last Taken 10/25/19 20:18] acetaminophen 1,000 mg PO Q6H PRN 10/25/19 [History Last Taken Unknown] amlodipine 5 mg PO DAILY 10/25/19 [History Last Taken 03/26/20] clopidogrel 75 mg PO DAILY 10/25/19 [History Last Taken 03/26/20] dextromethorphan-guaifenesin 5 ml PO Q4H PRN 10/25/19 [History Last Taken Unknown] gabapentin 600 mg PO QHS 10/25/19 [History Last Taken 03/25/20] hydroxyzine HCl 50 mg PO TID PRN 10/25/19 [History Last Taken Unknown] tizanidine 2 mg PO Q8H PRN 10/25/19 [History Last Taken Unknown] carbamazepine 200 mg PO Q12H 10/26/19 [History Last Taken 10/25/19 20:18] omeprazole 40 mg PO DAILY 12/16/19 [History Last Taken Unknown] warfarin 10 mg PO MOWEFR 02/25/20 [History Last Taken Unknown] aspirin 81 mg PO DAILY@0800 08/08/20 [History Last Taken Unknown] warfarin 5 mg PO SUTUTHSA 08/10/20 [History Last Taken Unknown] albuterol sulfate 2.5 mg INHALATION Q4H PRN PRN vial.neb. 08/12/20 [Rx Last Taken Unknown] ipratropium-albuterol 3 ml INHALATION Q6HWA.RT ampul.neb 08/12/20 [Rx Last Taken Unknown] losartan 50 mg PO DAILY tab 08/12/20 [Rx Last Taken Unknown] prednisone 60 mg PO DAILY #15 tablet 01/20/21 [Rx Last Taken Unknown] hydrocodone-acetaminophen 1 tab PO Q4H PRN 7 Days #20 tab 01/22/21 [Rx Last Taken Unknown] ondansetron HCl [Zofran] 4 mg PO Q6H PRN #10 tab 01/23/21 [Rx Last Taken Unknown] bacitracin 1 applic TOPICAL BID #14 g 06/12/21 [Rx Last Taken Unknown] hydrocodone-acetaminophen 1 tab PO Q6H PRN 3 Days #12 tab 06/12/21 [Rx Last Taken Unknown] ondansetron 4 mg PO Q6H PRN #7 tab 08/12/21 [Rx Last Taken Unknown] Allergy/AdvReac Type Severity Reaction Status Date / Time No Known Allergies Allergy Verified 08/12/21 00:37 Surgical History History of appendectomy Social History Smoking Status: Current some day smoker tobacco type: cigarettes ROS ROS ED ROS Narrative Nausea, vomiting and abdominal pain. Review of Systems ROS Unobtainable: Denies due to encephalopathy Constitutional Constitutional ED: Denies chills or fever(s) ENT ENT ED: Denies ear pain Cardiovascular Cardiovascular: Denies chest pain or palpitations Respiratory/Chest Respiratory/Chest: Denies cough or dyspnea Gastrointestinal Gastrointestinal: Reports abdominal pain, nausea and vomiting; Denies constipation, diarrhea or melena Genitourinary Genitourinary ED: Denies dysuria Musculoskeletal Musculoskeletal: Denies myalgias Integumentary Denies rash Neurologic Neurologic: Denies headache(s) Psychiatric Psychiatric: Denies depression Endocrine Endocrinology: Denies polyuria Hematologic/Lymphatic Hematologic/Lymphatic: Denies easy bruising Allergic/Immunologic Allergic/Immunologic ED: Denies urticaria EXAM Physical Exam Narrative Exam Narrative: 69-year-old male no acute distress vital signs stable afebrile. Initial blood pressure 224/88 repeated 196/88. He does not look septic nor toxic nor dehydrated. He is in no acute distress. H EENT exam unremarkable. Moist use membranes. Neck nontender. Lungs coarse breath sounds. No wheezing. Heart regular rhythm no murmur. Chest were nontender. Abdomen soft nondistended normal bowel sounds no peritoneal signs. Mild epigastric tenderness. No rebound, guarding or rigidity. No distention. No signs of obstruction. Soft. No hernia or mass. No pulsatile mass. Both the right upper and right lower quadrants are unremarkable. Moving all 4 extremities. Calves are nontender without edema. Neurologically is awake and alert. Back nontender. No focal motor deficits. Const Vital Signs: 08/12/21 00:32 08/12/21 00:47 Temperature 97.5 F L Temperature Source Temporal Pulse Rate 76 Respiratory Rate 16 Blood Pressure 224/88 H 196/88 H Blood Pressure Mean 133 124 Pulse Ox 96 Oxygen Delivery Method Room Air Positive well nourished and well developed; Negative for obese, cachectic, contractures or unkempt General Appearance ED: well developed and NAD; Negative for unkempt, cachectic, contractures or pallor Nutritional Appearance: Negative for cachectic or obese HEENT Reports moist mucous membranes normocephalic and atraumatic; Negative for trauma or tenderness Eyes PERRL and EOMs intact bilaterally General Eye ED: Negative for pale conjunctiva Neck no lymphadenopathy, supple and no JVD General: Negative for tenderness Resp normal respiratory effort and clear to auscultation bilaterally Auscultation: Negative for rales, rhonchi or wheezes Cardio regular rate, regular rhythm, S1 normal heart sound, S2 normal heart sound and no murmurs GI non-distended and no masses; Negative for non-tender Inspection: Negative for abdominal distention Auscultation: normoactive bowel sounds; Negative for hyperactive bowel sounds or hypoactive bowel sounds Palpation: soft and tender; Negative for guarding, rigid, hepatomegaly, splenomegaly or rebound tenderness present Back/Spine no CVA tenderness General Back: Negative for CVA tenderness Cervical Spine: Negative for cervical spine tenderness Thoracic Spine / Upper Back: Negative for thoracic spinal tenderness Lumbar Spine / Lower Back: Negative for lumbar spinal tenderness Extremity full ROM General Extremety ED: Negative for edema or tenderness General Extremity: Negative for edema Neuro CN's II-XII intact bilaterally and moves all extremities Sensorium / Orientation: alert, oriented to person, oriented to place and oriented to time; Negative for orientation impaired, confused, lethargic or stuporous Motor Exam: strength 5/5 throughout Psych mental status grossly normal and thought process normal Appearance: Negative for unkempt Attitude: No agitated Mood & Affect: Negative for depressed, anxious or tearful Skin no wounds General Skin Exam: Negative for jaundice or pallor Lesions: no lesions Rashes: no rashes MDM MDM MDM Narrative Medical decision making narrative: 71-year-old male with nausea and vomiting diffuse abdominal discomfort. Exam benign. Screening labs will be obtained. He was written for Zofran for nausea and did not want to need anything for pain. Patient's labs are unremarkable. On repeat exam at 2:30 AM he still complaining of abdominal pain and nausea. He will be given additional dose of Zofran. CAT scan of his abdomen is being obtained. He is tender but otherwise his abdominal exam is benign. There are no peritoneal signs. Repeat exam at 4:00 AM patient is doing well. He will be discharged home. Repeat abdominal exam is benign. He and I discussed all test results. He will be written for Zofran for nausea. Follow-up with his primary care physician as needed. Lab Data Attestation: I reviewed the patient's lab results. Lab results narrative: CBC shows a white count of 10.4. H&H 10.4 and 36. Patient is chronically anemic and this is his baseline. Platelets 401. Patient is on Coumadin his INR is 2.1. Electrolytes show sodium 135. Gap of 8 normal BUN and creatinine of 10 and 1.1. Liver enzymes unremarkable. Glucose of 162. Lipase 46. Labs: Laboratory Results - last 24 hr 08/12/21 08/12/21 08/12/21 00:39 00:39 Unknown WBC 10.4 RBC 4.84 Hgb 10.4 L Hct 36.2 L MCV 74.8 L MCH 21.5 L MCHC 28.7 L RDW Std Deviation 50.2 H RDW Coeff of Aly 18.7 H Plt Count 401 MPV 10.3 Immature Gran % (Auto) 0.500 Neut % (Auto) 93.3 H Lymph % (Auto) 4.2 L Leon % (Auto) 1.4 Eos % (Auto) 0.0 Baso % (Auto) 0.6 Absolute Neuts (auto) 9.7 H Absolute Lymphs (auto) 0.44 L Nucleated RBC % 0 Anisocytosis 1+ Microcytosis 1+ PT 23.1 H INR 2.1 Sodium 135 L Potassium 3.8 Chloride 101 Carbon Dioxide 26.0 Anion Gap 8 BUN 10 Creatinine 1.11 Estim Creat Clear Calc 58.20 Est GFR (MDRD) Af Amer 84 Est GFR (MDRD) Non-Af 69 BUN/Creatinine Ratio 9.0 L Glucose 162 H Calcium 9.4 Total Bilirubin 0.30 AST 15 ALT 19 Alkaline Phosphatase 70 Total Protein 8.1 Albumin 4.2 Globulin 3.9 Albumin/Globulin Ratio 1.1 Lipase 46 L Radiography Diagnostic Testing: Clinical Impression(s) from Imaging Studies Abdomen/Pelvis CT 08/12/21 02:34 IMPRESSION: Negative enhanced CT of the abdomen and pelvis for acute abnormality. Interval increase in right renal cystic hypodensity now measuring approximately 1.6 cm in diameter likely cyst. This measured 6 mm on prior CTA from 12/16/[address] abdomen from 01/21/2021. Recommend follow up dedicated renal ultrasound for further evaluation due to increased size. Stable adrenal gland nodules. Electronically Signed: Kenan Dunn MD at 3:36 EST , CT of the abdomen showed chronic changes no acute process. Nothing acute specifically account for his nausea, vomiting or abdominal pain. There is no signs of obstruction. This was read by the radiologist. Discharge Plan Triage Chief Complaint: Nausea/Vomiting ED Provider: Aris Dixon Dx/Rx/DC Orders Clinical Impression: Nausea & vomiting, 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, Abdominal pain, History of atrial fibrillation, History of diabetes mellitus Instructions: Abdominal Pain, ED Vomiting (Adult) Prescriptions: New ondansetron 4 mg tablet,disintegrating 4 mg PO Q6H PRN (Reason: nausea and vomiting) Qty: 7 RF: 0 No Action tamsulosin 0.4 MG capsule 0.4 mg PO QHS RF: 0 gabapentin 300 MG capsule 300 mg PO 0900,1600 RF: 0 finasteride 5 MG tablet 5 mg PO DAILY RF: 0 atorvastatin 40 MG tablet 40 mg PO QHS RF: 0 sertraline 50 MG tablet 100 mg PO DAILY RF: 0 metoprolol tartrate 25 MG tablet 25 mg PO BID RF: 0 mirtazapine 15 MG tablet 15 mg PO QHS RF: 0 tizanidine 2 MG tablet 2 mg PO Q8H PRN (Reason: Muscle Spasms) RF: 0 acetaminophen 500 MG tablet 1,000 mg PO Q6H PRN (Reason: Pain Or Fever) RF: 0 dextromethorphan-guaifenesin 5 ML liquid 5 ml PO Q4H PRN (Reason: Cough) RF: 0 clopidogrel 75 MG tablet 75 mg PO DAILY RF: 0 amlodipine 5 MG tablet 5 mg PO DAILY RF: 0 gabapentin 300 MG capsule 600 mg PO QHS RF: 0 hydroxyzine HCl 10 MG tablet 50 mg PO TID PRN (Reason: Itching) RF: 0 carbamazepine 200 MG tablet 200 mg PO Q12H RF: 0 omeprazole 40 MG capsule,delayed release(DR/EC) 40 mg PO DAILY RF: 0 warfarin 7.5 MG tablet 10 mg PO MOWEFR RF: 0 aspirin 81 MG tablet,chewable 81 mg PO DAILY@0800 RF: 0 warfarin 5 MG tablet 5 mg PO SUTUTHSA RF: 0 albuterol sulfate 2.5 MG/3 ML solution for nebulization 2.5 mg INHALATION Q4H PRN PRN (Reason: sob/wheezing) RF: 0 losartan 50 MG tablet 50 mg PO DAILY RF: 0 ipratropium-albuterol 3 ML solution for nebulization 3 ml INHALATION Q6HWA.RT RF: 0 prednisone 20 mg tablet 60 mg PO DAILY Qty: 15 RF: 0 hydrocodone-acetaminophen 5-325 mg tablet 1 tab PO Q4H PRN (Reason: pain) 7 Days Qty: 20 RF: 0 ondansetron HCl [Zofran] 4 mg tablet 4 mg PO Q6H PRN (Reason: nausea and vomiting) Qty: 10 RF: 0 hydrocodone-acetaminophen 5-325 mg tablet 1 tab PO Q6H PRN (Reason: pain) 3 Days Qty: 12 RF: 0 bacitracin 500 unit/gram ointment 1 applic topical BID Qty: 14 RF: 0 Primary Care Provider: Daija Douglas Referrals: Daija Douglas MD [Primary Care Provider] - 3-5 Days if not improving Activity Restrictions/Additional Instructions: Your labs and CAT scan were unremarkable. This may be secondary to either a virus or potentially food poisoning. It should progressively improve. Plenty of fluids and rest. Zofran as needed for nausea. Follow-up with your doctor if not improving or return emergency department if feeling worse. Disposition Disposition: Home, Self Care
[2021-08-12] MEDS: Ondansetron 4 MG/2 ML Vial IV ×2 (01:00→02:50)
[2021-08-12] MEDS: 0.9% Normal Saline 1,000 ML 1000 ML IV (01:00)
[2021-08-12 01:03] LABS: Absolute Lymphocyte Count 0.44 X10^3/uL (0.83-4.51); Absolute Neutrophil Count 9.7 X10^3/uL (2.0-7.7); Basophil# 0.06 X10^3/uL; Basophil% 0.6 % (0-1); Hematocrit 36.2 % (40-54); Hemoglobin 10.4 g/dL (13.0-16.5); Lymphocyte # 0.44 X10^3/ul (0.83-4.51); Lymphocyte % 4.2 % (19-41); Mean Corp Hgb Conc 28.7 g/dL (32-36); Mean Corpuscular Hgb 21.5 pg (27.0-32.0); Mean Corpuscular Volume 74.8 fL (80-94); Mean Platelet Vol. 10.3 fl (6.2-12.0); Monocyte# 0.15 X10^3/uL; Monocyte% 1.4 % (0-10); NRBC Flagged by Analyzer 0 % (0-5); Neutrophil % 93.3 % (47-70); POSITIVE DIFFERENTIAL YES; Platelet Count 401 K/mm3 (150-450); RBC Distribution Width CV 18.7 % (11.6-14.6); RBC Distribution Width SD 50.2 fl (35.1-43.9); Red Blood Count 4.84 M/mm3 (4.6-6.2); White Blood Count 10.4 K/mm3 (4.4-11.0)
[2021-08-12 01:12] LABS: Differential Indicated SCAN CRITERIA MET
[2021-08-12 01:16] LABS: ALB/GLOB Ratio 1.1 RATIO (0.9-2.4); AST(SGOT) 15 U/L (15-37); Alanine Aminotransfer ALT/SGPT 19 U/L (16-61); Albumin, Serum 4.2 g/dL (3.2-5.0); Alkaline Phosphatase 70 U/L (45-117); Anion Gap 8 (5-15); BUN 10 mg/dL (7-18); Calcium,Total 9.4 mg/dL (8.5-10.1); Chloride 101 mmol/L (98-107); Creatinine, Serum 1.11 mg/dL (0.70-1.30); EST Glomerular Filtration Rate 69 mL/min (>60); Est Glom Filt Rate - Afr Amer 84 mL/min (>60); Globulin 3.9 g/dL (2.2-4.2); Glucose 162 mg/dL (74-106); Lipase 46 U/L (73-393); Potassium 3.8 mmol/L (3.5-5.1); Protein, Total 8.1 g/dL (6.4-8.2); Sodium Level 135 mmol/L (136-145)
[2021-08-12 01:18] LABS: International Normalized Ratio 2.1; Prothrombin Time (Protime)PT. 23.1 SECONDS (11.7-14.9)
[2021-08-12 01:20] LABS: Anisocytosis 1+
[2021-08-12 01:21] LABS: Microcytosis 1+
--- NOTE | 2021-08-12 02:34 | CT_ITS ---
STUDY: CT ABDOMEN AND PELVIS WITH CONTRAST REASON FOR EXAM: Male, 71 years old. abd pain RADIATION DOSAGE (If Supplied By Facility): CTDIvol = ( 12.44 ) mGy, DLP = ( 1044.69 ) mGycm TECHNIQUE: Transaxial images were obtained from the dome of the diaphragm to the symphysis pubis without oral contrast. IV 100mL Isovue-[id number] was administered. Sagittal and coronal images were reconstructed. Individualized dose optimization techniques were used for this CT. COMPARISON: CT abdomen pelvis from 01/21/2021 and CTA abdomen from 12/16/2019. FINDINGS: The visualized lung bases are unremarkable. The visualized portions of the heart are within normal limits. Normal liver. Normal gallbladder and extrahepatic biliary system. The gallbladder is mildly dilated. Normal spleen. Normal pancreas. Stable bilateral adrenal gland nodules largest on the left measuring approximately 3.6 cm in diameter. There is scattered bilateral renal vascular calcifications. No hydroureter or ureteral calculus. Interval increased size of right renal mid pole cystic hypodensity measuring approximately 1.6 cm in diameter. There is a small hiatal hernia. Normal small intestine. Normal colon. There are surgical clips in the region of the appendix consistent with a prior appendectomy. There is diffuse atherosclerotic calcification of the abdominal aorta, without a demonstrated aneurysm. Normal inferior vena cava. Normal retroperitoneum. Normal urinary bladder. There is a small umbilical hernia containing fat. There are diffuse degenerative changes of the visualized lumbar spine. Stable L2 superior endplate compression deformity. Stable sclerotic focus in the right iliac bone likely bone island. CT/Abdomen/Pelvis W IV Cont ONLY IMPRESSION: Negative enhanced CT of the abdomen and pelvis for acute abnormality. Interval increase in right renal cystic hypodensity now measuring approximately 1.6 cm in diameter likely cyst. This measured 6 mm on prior CTA from 12/16/[address] abdomen from 01/21/2021. Recommend follow up dedicated renal ultrasound for further evaluation due to increased size. Stable adrenal gland nodules. Electronically Signed: Kenan Dunn MD at 3:36 EST ,
[2021-08-12 04:26] VITALS: BP 211/89; PULSE 70; RESP 18; O2SAT 93
--- NOTE | 2021-08-12 04:43 | ED.RN ---
PTS HEALTH INSURANCE DOES NOT COVER [place], PT UNABLE TO AFFORD 12.61 FOR SELF PAY AND STATES HE'LL JUST GO WITHOUT. JOEY BURRELL CALLED FOR [facility].
== END 2021-08-12 04:49 | disposition home or self-care (01) ==
PROVIDERS: Emergency Provider Emergency Medicine; PCP Internal Medicine; Visit Provider Emergency Medicine
DX: R10.9 Unspecified abdominal pain (principal); R11.2 Nausea with vomiting, unspecified; F17.210 Nicotine dependence, cigarettes, uncomplicated; G47.30 Sleep apnea, unspecified; Z79.01 Long term (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 of anticoagulants
CPT/HCPCS: 74177; 80053; 83690; 85025; 85610; 96361; 96374; 96376; 99285; J7030; Q9967; A4216; J2405

== ENCOUNTER 2021-08-18 18:58 | Inpatient (IN) | payer MEDICARE, MEDICAID, SELFPAY ==
[2021-08-18 19:00] VITALS: BP 221/77; PULSE 60; RESP 18; TEMP 36.5; O2SAT 95; BMI 24.6
--- NOTE | 2021-08-18 19:21 | EDS_ITS ---
HPI HPI - GI History of Present Illness Chief Complaint: Abd Pain Informant: patient Narrative Narrative: Patient presents persistent lower abdominal pain for the past 6 days. Was seen in the ED 6 days ago. History of appendectomy. He had a work-up at that time with lab work and CT scan of abdomen pelvis with contrast notable for renal cyst of 1.8 cm. History of paroxysmal atrial fibrillation peripheral artery disease on Coumadin and Plavix. History of pancreatitis. At that time declined any pain medicines. Given Zofran he went home he states he started vomiting at home. States typically at night. When he takes p.o. intake he would vomit. Had endoscopy years ago. He is having bowel movements. No diarrhea. No urinary symptoms. Prior similar symptoms: Yes PFSH PFSH Medical History Asthma Atrial fibrillation Chronic pain COPD (chronic obstructive pulmonary disease) Depression Diabetes Falls frequently High cholesterol Hypertension Irregular heart beat Kidney stones On home oxygen therapy Pancreatitis Seizures Sleep apnea Smoker Stroke/cerebrovascular accident Home Medications gabapentin 300 mg PO 0900,1600 01/26/14 [History Last Taken 03/26/20] tamsulosin 0.4 mg PO QHS 01/26/14 [History Last Taken 10/25/19 08:33] finasteride 5 mg PO DAILY 11/14/14 [History Last Taken 10/25/19 08:35] atorvastatin 40 mg PO QHS 09/23/15 [History Last Taken 03/25/20] metoprolol tartrate 25 mg PO BID 12/02/15 [History Last Taken 03/26/20] sertraline 100 mg PO DAILY 12/02/15 [History Last Taken 10/25/19 08:35] mirtazapine 15 mg PO QHS 08/16/19 [History Last Taken 10/25/19 20:18] acetaminophen 1,000 mg PO Q6H PRN 10/25/19 [History Last Taken Unknown] amlodipine 5 mg PO DAILY 10/25/19 [History Last Taken 03/26/20] clopidogrel 75 mg PO DAILY 10/25/19 [History Last Taken 03/26/20] dextromethorphan-guaifenesin 5 ml PO Q4H PRN 10/25/19 [History Last Taken Unknown] gabapentin 600 mg PO QHS 10/25/19 [History Last Taken 03/25/20] hydroxyzine HCl 50 mg PO TID PRN 10/25/19 [History Last Taken Unknown] tizanidine 2 mg PO Q8H PRN 10/25/19 [History Last Taken Unknown] carbamazepine 200 mg PO Q12H 10/26/19 [History Last Taken 10/25/19 20:18] omeprazole 40 mg PO DAILY 12/16/19 [History Last Taken Unknown] warfarin 10 mg PO MOWEFR 02/25/20 [History Last Taken Unknown] aspirin 81 mg PO DAILY@0800 08/08/20 [History Last Taken Unknown] warfarin 5 mg PO SUTUTHSA 08/10/20 [History Last Taken Unknown] albuterol sulfate 2.5 mg INHALATION Q4H PRN PRN vial.neb. 08/12/20 [Rx Last Taken Unknown] ipratropium-albuterol 3 ml INHALATION Q6HWA.RT ampul.neb 08/12/20 [Rx Last Taken Unknown] losartan 50 mg PO DAILY tab 08/12/20 [Rx Last Taken Unknown] prednisone 60 mg PO DAILY #15 tablet 01/20/21 [Rx Last Taken Unknown] hydrocodone-acetaminophen 1 tab PO Q4H PRN 7 Days #20 tab 01/22/21 [Rx Last Taken Unknown] ondansetron HCl [Zofran] 4 mg PO Q6H PRN #10 tab 01/23/21 [Rx Last Taken Unknown] bacitracin 1 applic TOPICAL BID #14 g 06/12/21 [Rx Last Taken Unknown] hydrocodone-acetaminophen 1 tab PO Q6H PRN 3 Days #12 tab 06/12/21 [Rx Last Taken Unknown] ondansetron 4 mg PO Q6H PRN #7 tab 08/12/21 [Rx Last Taken Unknown] Allergy/AdvReac Type Severity Reaction Status Date / Time No Known Allergies Allergy Verified 08/18/21 19:04 Surgical History History of appendectomy Social History Smoking Status: Former smoker ROS ROS ED Constitutional Constitutional ED: Denies chills, fever(s) or sweats Eyes Eyes: Denies change in vision ENT ENT ED: Denies dysphagia or sore throat Cardiovascular Cardiovascular: Denies chest pain, leg edema, palpitations or racing heartbeat Respiratory/Chest Respiratory/Chest: Denies cough, dyspnea or dyspnea on exertion Gastrointestinal Gastrointestinal: Reports abdominal pain, nausea and vomiting; Denies diarrhea Genitourinary Genitourinary ED: Denies dysuria, hematuria or urinary frequency Musculoskeletal Musculoskeletal: Denies back pain, extremity pain or neck pain Integumentary Denies rash or wounds Neurologic Neurologic: Denies headache(s), paresthesias or weakness EXAM Physical Exam Const Vital Signs: 08/18/21 19:00 08/18/21 21:24 Temperature 97.7 F L Temperature Source Oral Pulse Rate 60 64 Respiratory Rate 18 16 Blood Pressure 221/77 H 220/74 H Blood Pressure Mean 125 122 Pulse Ox 95 99 Oxygen Delivery Method Room Air Nasal Cannula Oxygen Flow Rate (L/min) 2 Positive well nourished and well developed General Appearance ED: well developed and NAD HEENT Reports moist mucous membranes normocephalic and atraumatic Eyes PERRL, EOMs intact bilaterally and conjunctivae normal General Eye ED: Yes normal appearance of both eyes Neck no lymphadenopathy and supple General: Negative for tenderness Chest Wall Chest: Negative for tenderness Resp normal respiratory effort and normal air movement Effort and Inspection: symmetric chest movement; Negative for respiratory distress Cardio regular rate, regular rhythm and no murmurs Peripheral Pulses: pulses 2+ throughout GI normal to inspection, nondistended, normoactive bowel sounds GI Narrative: Tender palpation right side right lower quadrant. Palpation: Negative for guarding or rebound tenderness present Back/Spine no CVA tenderness and no thoracic nor lumbar tenderness Extremity normal to inspection General Extremety ED: Negative for edema or tenderness General Extremity: Negative for edema Neuro oriented x3 and no sensory deficits noted Sensorium / Orientation: awake and alert Skin no rashes or lesions noted and no wounds MDM MDM MDM Narrative Medical decision making narrative: Patient tender palpation right side abdomen. IV established fluids started he is given Zofran and morphine. Abdominal labs today white count 10.4 there is new transaminitis AST six sixty-five ALT six thirty-five ALP 308, total bilirubin 1.2 direct bilirubin 0.89. Lipase normal at one thirty-four. Give additional morphine due to still having symptoms however slightly improved. Initial heart rate was 220s on arrival after pain medicines blood pressure did go down to one seventy. INR 2.3. Ultrasound was obtained noting significant distended gallbladder, there was sludge versus small stones. There is no thickening of the gallbladder wall common bile duct 5.5 mm. There is no pericholecystic fluid. Also noting ringdown artifact per radiology from the gallbladder suggesting adenomyomatosis. However with patient's history reporting colic symptoms with pain and vomiting after food since seen 6 days ago and elevated liver enzymes, this is more consistent with gallbladder symptoms. I did discuss with on-call surgeon Dr. Andrews [phone] who will evaluate the patient in the ED. Disposition pending. On reevaluation blood pressure went back up to220/74, will give 10 mg of hydralazine. Patient evaluated agrees with findings. However patient complex medical history. Surgeon spoke with medicine team for admission to medicine service with plan OR tomorrow. Lab Data Attestation: I reviewed the patient's lab results. Labs: Laboratory Results - last 24 hr 08/18/21 08/18/21 08/18/21 19:05 19:05 19:05 WBC 10.4 RBC 4.57 L Hgb 9.9 L Hct 33.7 L MCV 73.7 L MCH 21.7 L MCHC 29.4 L RDW Std Deviation 50.4 H RDW Coeff of Aly 19.1 H Plt Count 522 H MPV 9.8 Immature Gran % (Auto) 0.500 Neut % (Auto) 91.9 H Lymph % (Auto) 3.3 L Hendricks % (Auto) 3.9 Eos % (Auto) 0.0 Baso % (Auto) 0.4 Absolute Neuts (auto) 9.6 H Absolute Lymphs (auto) 0.34 L Nucleated RBC % 0 Differential Comment SCANNED PT 24.1 H INR 2.3 Sodium 138 Potassium 3.6 Chloride 102 Carbon Dioxide 28.0 Anion Gap 8 BUN 14 Creatinine 1.17 Estim Creat Clear Calc 55.21 Est GFR (MDRD) Af Amer 79 Est GFR (MDRD) Non-Af 65 BUN/Creatinine Ratio 12.0 Glucose 186 H Calcium 9.3 Total Bilirubin 1.20 H Direct Bilirubin 0.89 H AST 665 H ALT 635 H Alkaline Phosphatase 308 H Total Protein 7.1 Albumin 3.1 L Globulin 4.0 Lipase 134 Radiography Diagnostic Testing: Clinical Impression(s) from Imaging Studies Gallbladder Ultrasound 08/18/21 19:59 IMPRESSION: There is biliary sludge dependent within the gallbladder vs small gallstones. There is hypoechoic foci of the right kidney. These are consistent for cysts. No follow up required. Electronically Signed: Raymundo Duron MD at 21:12 EST , Discharge Plan Dx/Rx/DC Orders Clinical Impression: Biliary colic, Abdominal pain, Transaminitis, Biliary sludge determined by ultrasound, Current use of anticoagulant therapy, Elevated blood pressure reading in office with diagnosis of hypertension Disposition Disposition: Acute Care Hospital [facility] Discharge Date/Time: 08/18/21 22:31
[2021-08-18 19:24] LABS: Absolute Lymphocyte Count 0.34 X10^3/uL (0.83-4.51); Absolute Neutrophil Count 9.6 X10^3/uL (2.0-7.7); Basophil# 0.04 X10^3/uL; Basophil% 0.4 % (0-1); Hematocrit 33.7 % (40-54); Hemoglobin 9.9 g/dL (13.0-16.5); Lymphocyte # 0.34 X10^3/ul (0.83-4.51); Lymphocyte % 3.3 % (19-41); Mean Corp Hgb Conc 29.4 g/dL (32-36); Mean Corpuscular Hgb 21.7 pg (27.0-32.0); Mean Corpuscular Volume 73.7 fL (80-94); Mean Platelet Vol. 9.8 fl (6.2-12.0); Monocyte# 0.41 X10^3/uL; Monocyte% 3.9 % (0-10); NRBC Flagged by Analyzer 0 % (0-5); Neutrophil # 9.55 X10^3/uL (2.7-7.7); Neutrophil % 91.9 % (47-70); POSITIVE DIFFERENTIAL YES; Platelet Count 522 K/mm3 (150-450); RBC Distribution Width CV 19.1 % (11.6-14.6); RBC Distribution Width SD 50.4 fl (35.1-43.9); Red Blood Count 4.57 M/mm3 (4.6-6.2); White Blood Count 10.4 K/mm3 (4.4-11.0)
[2021-08-18] MEDS: 0.9% Normal Saline 1,000 ML 150 ML IV (19:27)
[2021-08-18] MEDS: Morphine 4 MG/ML Syringe IV ×3 (19:27→23:52)
[2021-08-18] MEDS: Ondansetron 4 MG/2 ML Vial IV ×2 (19:27→23:51)
[2021-08-18 19:33] LABS: Differential Indicated SCAN CRITERIA MET
[2021-08-18 19:39] LABS: AST(SGOT) 665 U/L (15-37); Alanine Aminotransfer ALT/SGPT 635 U/L (16-61); Albumin, Serum 3.1 g/dL (3.2-5.0); Alkaline Phosphatase 308 U/L (45-117); Anion Gap 8 (5-15); BUN 14 mg/dL (7-18); Bilirubin, Direct 0.89 mg/dL (0.00-0.30); Calcium,Total 9.3 mg/dL (8.5-10.1); Chloride 102 mmol/L (98-107); Creatinine, Serum 1.17 mg/dL (0.70-1.30); EST Glomerular Filtration Rate 65 mL/min (>60); Est Glom Filt Rate - Afr Amer 79 mL/min (>60); Estimated Creatinine Clearance 55.21 ml/min; Glucose 186 mg/dL (74-106); Lipase 134 U/L (73-393); Potassium 3.6 mmol/L (3.5-5.1); Protein, Total 7.1 g/dL (6.4-8.2); Sodium Level 138 mmol/L (136-145)
[2021-08-18 19:43] LABS: International Normalized Ratio 2.3; Prothrombin Time (Protime)PT. 24.1 SECONDS (11.7-14.9)
--- NOTE | 2021-08-18 19:59 | US_ITS ---
STUDY: ABDOMINAL ULTRASOUND - RIGHT UPPER QUADRANT REASON FOR VISIT: Male, 71 years old. ABDOMEN PAIN abd pain TECHNIQUE: Ultrasound evaluation of the right upper quadrant was performed with real-time and static finley-scale imaging. TECHNICAL QUALITY: Adequate. COMPARISON: CT 08/12/2019 FINDINGS: Liver: There is normal echogenicity of the liver. The bile ducts are within normal limits. There is hepatic color flow. The direction of portal flow is hepatopetal. There is 12 x 11 mm echogenic demonstrated mass lesion. Gallbladder: There is a markedly distended gallbladder. The gallbladder wall measures 3 mm. There is a negative sonographic Pacheco''s sign. There is no pericholecystic fluid. There is biliary sludge dependent within the gallbladder vs small gallstones. Ringdown artifact in the wall of the gallbladder can suggest adenomyomatosis Common Bile Duct (C.B.D.): The common bile duct measures ( in mm): 5.5 Pancreas: Normal size of the head, body of the pancreas. There is normal echogenicity of the pancreas. There is no demonstrated pancreatic mass or cyst. Right Kidney: Normal size of the right kidney. The right kidney measures 10.8 cm. . Normal renal cortex. There is a cyst. This measures 15 mm. There is no right hydronephrosis. Aorta: It is not visualized. There is too much overlying bowel gas. . US/Gallbladder IMPRESSION: There is biliary sludge dependent within the gallbladder vs small gallstones. There is hypoechoic foci of the right kidney. These are consistent for cysts. No follow up required. Electronically Signed: Raymundo Duron MD at 21:12 EST ,
[2021-08-18 20:06] LABS: Differential Comment SCANNED
[2021-08-18 21:24] VITALS: BP 220/74; PULSE 64; RESP 16; O2SAT 99
[2021-08-18] MEDS: hydrALAZINE 20 MG/ML Vial 10 MG IV (21:33)
--- NOTE | 2021-08-18 21:57 | EX.PCM.CON.S ---
Assessment & Plan Assessment/Plan (1) Acute cholecystitis: PLAN: The patient had an ultrasound today which showed sludge and small stones in the gallbladder. The patient is exquisitely tender in the right upper quadrant with an elevated white count. The patient reports nausea and vomiting with eating. The patient also had elevated AST and ALT. Given the fact that his ducts do not appear dilated on the imaging and he does not have definitive stones mostly sludge on the ultrasound I believe he is in the finley zone for an ERCP. I recommend laparoscopic cholecystectomy with cholangiogram to remove the gallbladder as it is likely the source of the problem and may be causing the elevated transaminitis. I would also be able to evaluate the bile duct for stones during cholangiogram. I discussed this with him and he is in agreement. I discussed the procedure in detail with the patient. I discussed the risks, benefits, and alternatives of the procedure. I discussed the risks including but not limited to bleeding, infection, injury to surrounding organs such as the liver, bile duct, bowels. I did discuss the possibility of having to convert to an open procedure as well as the possibility that if any injuries occurred this may necessitate further surgery at a tertiary care center. Patient also seems to be having decreased oxygen saturation and hypertension. Patient is also on aspirin, Plavix, Coumadin. I have asked the hospitalist service to admit the patient and optimize these variables as much as possible overnight and to reverse the Coumadin and hold the aspirin and Plavix if possible. I will plan for laparoscopic cholecystectomy with cholangiogram tomorrow if able with possible ERCP the following day. Patient will be started on antibiotics and labs will be rechecked in the morning. Cornelius Andrews MD Pager: [facility] [address] [place] [address], [address] [place] [address] Office: HPI Consult Data Date of Consult: 08/18/21 HPI Narrative HPI Narrative: PEDRO PABLO SIERRA, is a 71 M who presents with abdominal pain vomiting. The patient reports that he was in the emergency room recently and ever since he has been vomiting with every meal and he has been having a lot of abdominal pain especially in the upper abdomen. He also says he has fevers but was not able to give me a temperature. [facility] Medical History Asthma Atrial fibrillation Chronic pain COPD (chronic obstructive pulmonary disease) Depression Diabetes Falls frequently High cholesterol Hypertension Irregular heart beat Kidney stones On home oxygen therapy Pancreatitis Seizures Sleep apnea Smoker Stroke/cerebrovascular accident Home Medications gabapentin 300 mg PO 0900,1600 01/26/14 [History Last Taken 03/26/20] tamsulosin 0.4 mg PO QHS 01/26/14 [History Last Taken 10/25/19 08:33] finasteride 5 mg PO DAILY 11/14/14 [History Last Taken 10/25/19 08:35] atorvastatin 40 mg PO QHS 09/23/15 [History Last Taken 03/25/20] metoprolol tartrate 25 mg PO BID 12/02/15 [History Last Taken 03/26/20] sertraline 100 mg PO DAILY 12/02/15 [History Last Taken 10/25/19 08:35] mirtazapine 15 mg PO QHS 08/16/19 [History Last Taken 10/25/19 20:18] acetaminophen 1,000 mg PO Q6H PRN 10/25/19 [History Last Taken Unknown] amlodipine 5 mg PO DAILY 10/25/19 [History Last Taken 03/26/20] clopidogrel 75 mg PO DAILY 10/25/19 [History Last Taken 03/26/20] dextromethorphan-guaifenesin 5 ml PO Q4H PRN 10/25/19 [History Last Taken Unknown] gabapentin 600 mg PO QHS 10/25/19 [History Last Taken 03/25/20] hydroxyzine HCl 50 mg PO TID PRN 10/25/19 [History Last Taken Unknown] tizanidine 2 mg PO Q8H PRN 10/25/19 [History Last Taken Unknown] carbamazepine 200 mg PO Q12H 10/26/19 [History Last Taken 10/25/19 20:18] omeprazole 40 mg PO DAILY 12/16/19 [History Last Taken Unknown] warfarin 10 mg PO MOWEFR 02/25/20 [History Last Taken Unknown] aspirin 81 mg PO DAILY@0800 08/08/20 [History Last Taken Unknown] warfarin 5 mg PO SUTUTHSA 08/10/20 [History Last Taken Unknown] albuterol sulfate 2.5 mg INHALATION Q4H PRN PRN vial.neb. 08/12/20 [Rx Last Taken Unknown] ipratropium-albuterol 3 ml INHALATION Q6HWA.RT ampul.neb 08/12/20 [Rx Last Taken Unknown] losartan 50 mg PO DAILY tab 08/12/20 [Rx Last Taken Unknown] prednisone 60 mg PO DAILY #15 tablet 01/20/21 [Rx Last Taken Unknown] hydrocodone-acetaminophen 1 tab PO Q4H PRN 7 Days #20 tab 01/22/21 [Rx Last Taken Unknown] ondansetron HCl [Zofran] 4 mg PO Q6H PRN #10 tab 01/23/21 [Rx Last Taken Unknown] bacitracin 1 applic TOPICAL BID #14 g 06/12/21 [Rx Last Taken Unknown] hydrocodone-acetaminophen 1 tab PO Q6H PRN 3 Days #12 tab 06/12/21 [Rx Last Taken Unknown] ondansetron 4 mg PO Q6H PRN #7 tab 08/12/21 [Rx Last Taken Unknown] Allergy/AdvReac Type Severity Reaction Status Date / Time No Known Allergies Allergy Verified 08/18/21 19:04 Surgical History History of appendectomy Social History Smoking Status: Current some day smoker tobacco type: cigarettes ROS Constitutional Constitutional: Reports fever(s); Denies chills Eyes Eyes: Denies blurry vision ENT HEENT: Denies abnormal hearing Cardiovascular Cardiovascular: Denies chest pain Respiratory/Chest Respiratory/Chest: Denies cough Gastrointestinal Gastrointestinal: Reports abdominal pain, nausea and vomiting; Denies constipation or diarrhea Genitourinary Genitourinary: Denies change in urinary stream Musculoskeletal Musculoskeletal: Denies abnormal gait Integumentary Integumentary: Denies jaundice Neurologic Neurologic: Denies dizziness Psychiatric Psychiatric: Denies anxiety Endocrine Endocrinology: Denies flushing Hematologic/Lymphatic Hematologic/Lymphatic: Reports easy bleeding Physical Exam Const alert General Appearance: cooperative HEENT normocephalic Eyes PERRL Neck full ROM Resp normal respiratory effort Cardio Rate: regular rate GI soft to palpation and non-distended Palpation: tender RUQ and Pacheco's sign Extremity General Extremity: normal exam except as noted Neuro CN's II-XII intact bilaterally Psych mental status grossly normal Lab / Micro Data Result Diagrams: 08/18/21 19:05 08/18/21 19:05 Labs: Laboratory Results - last 24 hr 08/18/21 19:05: WBC 10.4, RBC 4.57 L, Hgb 9.9 L, Hct 33.7 L, MCV 73.7 L, MCH 21.7 L, MCHC 29.4 L, RDW Std Deviation 50.4 H, RDW Coeff of Aly 19.1 H, Plt Count 522 H, MPV 9.8, Immature Gran % (Auto) 0.500, Neut % (Auto) 91.9 H, Lymph % (Auto) 3.3 L, [place] % (Auto) 3.9, Eos % (Auto) 0.0, Baso % (Auto) 0.4, Absolute Neuts (auto) 9.6 H, Absolute Lymphs (auto) 0.34 L, Nucleated RBC % 0, Differential Comment SCANNED 08/18/21 19:05: Sodium 138, Potassium 3.6, Chloride 102, Carbon Dioxide 28.0, Anion Gap 8, BUN 14, Creatinine 1.17, Estim Creat Clear Calc 55.21, Est GFR (MDRD) Af Amer 79, Est GFR (MDRD) Non-Af 65, BUN/Creatinine Ratio 12.0, Glucose 186 H, Calcium 9.3, Total Bilirubin 1.20 H, Direct Bilirubin 0.89 H, AST 665 H, ALT 635 H, Alkaline Phosphatase 308 H, Total Protein 7.1, Albumin 3.1 L, Globulin 4.0, Lipase 134 08/18/21 19:05: PT 24.1 H, INR 2.3 Micro: Microbiology 08/18/21 20:40 Nasal Secretion SARS-CoV-2 Antigen (Rapid) - Final Radiology Impression Gallbladder Ultrasound 08/18/21 19:59 IMPRESSION: There is biliary sludge dependent within the gallbladder vs small gallstones. There is hypoechoic foci of the right kidney. These are consistent for cysts. No follow up required. Electronically Signed: Raymundo Duron MD at 21:12 EST ,
[2021-08-18 22:11] VITALS: BP 192/68; PULSE 69; RESP 18; O2SAT 95
[2021-08-18 22:30] VITALS: BP 192/68; PULSE 69; RESP 18; TEMP 36.5; O2SAT 95
[2021-08-18 22:55] VITALS: BP 184/61; PULSE 80; RESP 18; TEMP 36.9; O2SAT 97
[2021-08-18 22:56] VITALS: BMI 23.8
[2021-08-18] MEDS: 0.9% Normal Saline 1,000 ML 100 ML IV (23:05)
--- NOTE | 2021-08-18 23:47 | PCM.HP.STD ---
[facility] - General General Date of Admission: 08/18/21 HPI Narrative PEDRO PABLO SIERRA, is a 71 M who presents to the hospital with persistent right upper quadrant abdominal pain. He was seen on 12 August for this issue and was discharged home. He says that his abdominal pain has just continued to get worse. LFTs are currently elevated in the ER and general surgery was consulted for possible cholecystitis. On his previous ED visit he did have a CT scan which demonstrated a renal cyst. Today he had a ultrasound of his gallbladder that demonstrated sludge and small stones. He is having significant tenderness in his right upper quadrant and have a leukocytosis. He states that he is forgetting a lot of his medical history secondary to age but states that he takes Coumadin for A. fib and and is also on aspirin and Plavix he is not sure why, he states it is for his heart. FORMERLY [facility], [facility] Medical History Asthma Atrial fibrillation Chronic pain COPD (chronic obstructive pulmonary disease) Depression Diabetes Falls frequently High cholesterol Hypertension Irregular heart beat Kidney stones On home oxygen therapy Pancreatitis Seizures Sleep apnea Smoker Stroke/cerebrovascular accident Home Medications gabapentin 300 mg PO 0900,1600 01/26/14 [History Last Taken 03/26/20] tamsulosin 0.4 mg PO QHS 01/26/14 [History Last Taken 10/25/19 08:33] finasteride 5 mg PO DAILY 11/14/14 [History Last Taken 10/25/19 08:35] atorvastatin 40 mg PO QHS 09/23/15 [History Last Taken 03/25/20] metoprolol tartrate 25 mg PO BID 12/02/15 [History Last Taken 03/26/20] sertraline 100 mg PO DAILY 12/02/15 [History Last Taken 10/25/19 08:35] mirtazapine 15 mg PO QHS 08/16/19 [History Last Taken 10/25/19 20:18] acetaminophen 1,000 mg PO Q6H PRN 10/25/19 [History Last Taken Unknown] amlodipine 5 mg PO DAILY 10/25/19 [History Last Taken 03/26/20] clopidogrel 75 mg PO DAILY 10/25/19 [History Last Taken 03/26/20] dextromethorphan-guaifenesin 5 ml PO Q4H PRN 10/25/19 [History Last Taken Unknown] gabapentin 600 mg PO QHS 10/25/19 [History Last Taken 03/25/20] hydroxyzine HCl 50 mg PO TID PRN 10/25/19 [History Last Taken Unknown] tizanidine 2 mg PO Q8H PRN 10/25/19 [History Last Taken Unknown] carbamazepine 200 mg PO Q12H 10/26/19 [History Last Taken 10/25/19 20:18] omeprazole 40 mg PO DAILY 12/16/19 [History Last Taken Unknown] warfarin 10 mg PO MOWEFR 02/25/20 [History Last Taken Unknown] aspirin 81 mg PO DAILY@0800 08/08/20 [History Last Taken Unknown] warfarin 5 mg PO SUTUTHSA 08/10/20 [History Last Taken Unknown] albuterol sulfate 2.5 mg INHALATION Q4H PRN PRN vial.neb. 08/12/20 [Rx Last Taken Unknown] ipratropium-albuterol 3 ml INHALATION Q6HWA.RT ampul.neb 08/12/20 [Rx Last Taken Unknown] losartan 50 mg PO DAILY tab 08/12/20 [Rx Last Taken Unknown] prednisone 60 mg PO DAILY #15 tablet 01/20/21 [Rx Last Taken Unknown] hydrocodone-acetaminophen 1 tab PO Q4H PRN 7 Days #20 tab 01/22/21 [Rx Last Taken Unknown] ondansetron HCl [Zofran] 4 mg PO Q6H PRN #10 tab 01/23/21 [Rx Last Taken Unknown] bacitracin 1 applic TOPICAL BID #14 g 06/12/21 [Rx Last Taken Unknown] hydrocodone-acetaminophen 1 tab PO Q6H PRN 3 Days #12 tab 06/12/21 [Rx Last Taken Unknown] ondansetron 4 mg PO Q6H PRN #7 tab 08/12/21 [Rx Last Taken Unknown] Allergy/AdvReac Type Severity Reaction Status Date / Time No Known Allergies Allergy Verified 08/18/21 19:04 Family History unable to obtain unable to obtain (He states that he does not have a good memory and does not remember any of his family history) Surgical History History of appendectomy Social History Smoking Status: Former smoker ROS Constitutional Constitutional: Denies chills, fatigue, fever(s) or malaise Eyes Eyes: Denies blurry vision ENT HEENT: Denies headache(s) or nasal discharge Cardiovascular Cardiovascular: Denies chest pain, dyspnea on exertion or syncope Respiratory/Chest Respiratory/Chest: Denies cough, shortness of breath at rest or shortness of breath with exertion Gastrointestinal Gastrointestinal: Reports abdominal pain, nausea and vomiting; Denies constipation or diarrhea Genitourinary Genitourinary: Denies dysuria Neurologic Neurologic: Denies focal weakness, numbness or tremor(s) Psychiatric Psychiatric: Denies anxiety or depression Vital Signs Vital Signs Vital Signs: 08/18/21 19:00 08/18/21 21:24 08/18/21 22:11 Temperature 97.7 F L Temperature Source Oral Pulse Rate 60 64 69 Respiratory Rate 18 16 18 Blood Pressure 221/77 H 220/74 H 192/68 H Blood Pressure Mean 125 122 109 Blood Pressure Source Blood Pressure Position Blood Pressure Location Pulse Ox 95 99 95 Oxygen Delivery Method Room Air Nasal Cannula Room Air Oxygen Flow Rate (L/min) 2 08/18/21 22:30 08/18/21 22:55 Temperature 97.7 F L 98.4 F Temperature Source Oral Oral Pulse Rate 69 80 Respiratory Rate 18 18 Blood Pressure 192/68 H 184/61 H Blood Pressure Mean 109 102 Blood Pressure Source Monitor Blood Pressure Position Right Lateral Blood Pressure Location Left Arm Pulse Ox 95 97 Oxygen Delivery Method Room Air Room Air Oxygen Flow Rate (L/min) Weight Weight: 156 lb 8.451 oz Body Mass Index (BMI) 23.8 Physical Exam Const alert, oriented x3 and no apparent distress General Appearance: cooperative HEENT normocephalic Mouth: dry mucous membranes Eyes PERRL, EOMs intact bilaterally and conjunctivae normal Neck supple and no JVD Resp normal respiratory effort, no retractions, no use of accessory muscles and clear to auscultation bilaterally Auscultation: Negative for crackles, rales, rhonchi or wheezes Cardio regular rate, regular rhythm, S1 normal heart sound, S2 normal heart sound and no murmurs GI soft to palpation and non-distended; Negative for hepatosplenomegaly Palpation: tender RUQ Extremity no clubbing, cyanosis or edema Skin no rashes or lesions noted Neuro no focal motor deficits and no sensory deficits noted Psych affect normal Appearance: appropriate Results Lab / Micro Data Result Diagrams: 08/18/21 19:05 08/18/21 19:05 Labs: Laboratory Results - last 24 hr 08/18/21 19:05: WBC 10.4, RBC 4.57 L, Hgb 9.9 L, Hct 33.7 L, MCV 73.7 L, MCH 21.7 L, MCHC 29.4 L, RDW Std Deviation 50.4 H, RDW Coeff of Aly 19.1 H, Plt Count 522 H, MPV 9.8, Immature Gran % (Auto) 0.500, Neut % (Auto) 91.9 H, Lymph % (Auto) 3.3 L, Barbour % (Auto) 3.9, Eos % (Auto) 0.0, Baso % (Auto) 0.4, Absolute Neuts (auto) 9.6 H, Absolute Lymphs (auto) 0.34 L, Nucleated RBC % 0, Differential Comment SCANNED 08/18/21 19:05: Sodium 138, Potassium 3.6, Chloride 102, Carbon Dioxide 28.0, Anion Gap 8, BUN 14, Creatinine 1.17, Estim Creat Clear Calc 55.21, Est GFR (MDRD) Af Amer 79, Est GFR (MDRD) Non-Af 65, BUN/Creatinine Ratio 12.0, Glucose 186 H, Calcium 9.3, Total Bilirubin 1.20 H, Direct Bilirubin 0.89 H, AST 665 H, ALT 635 H, Alkaline Phosphatase 308 H, Total Protein 7.1, Albumin 3.1 L, Globulin 4.0, Lipase 134 08/18/21 19:05: PT 24.1 H, INR 2.3 Micro: Microbiology 08/18/21 20:40 Nasal Secretion SARS-CoV-2 Antigen (Rapid) - Final Radiology Impression Gallbladder Ultrasound 08/18/21 19:59 IMPRESSION: There is biliary sludge dependent within the gallbladder vs small gallstones. There is hypoechoic foci of the right kidney. These are consistent for cysts. No follow up required. Electronically Signed: Raymundo Duron MD at 21:12 EST Reading Location ID and State: [facility] / [place] , Service support , Assessment & Plan Assessment/Plan (1) Transaminitis: (2) Acute cholecystitis: PLAN: 1. Acute cholecystitis with elevated LFTs ?We will consult the general surgery for cholecystectomy in the morning ?Continue with IV fluids and Zosyn ?We will make him n.p.o. except for medications ?Morphine for pain 2. HTN/HLD/A. fib/peripheral vascular disease ?He is unsure of his chronic medical conditions he is on Coumadin and his INR was 2.3, will reverse with p.o. vitamin K this evening, will hold his Coumadin and recheck his INR in the morning if necessary can transfuse plasma to get his INR ready for surgery. ?His blood pressures have been elevated to over 200 systolic, this is likely a reaction to not holding down his meds secondary to his nausea and vomiting for his acute cholecystitis as well as his pain. We will continue with his morphine for pain and we will restart his home blood pressure medications and will also place him on hydralazine ?We will hold his aspirin and his Plavix it appears that he may be on these due to peripheral vascular disease a stent to the been placed for that issue 3. Lupus anticoagulant with possible history of a DVT ?Unsure as to whether or not he truly has lupus anticoagulant and a history of DVT as he is unable to provide a significant portion of his medical history, will hold his Coumadin in light of the need for surgery and then restart his Coumadin as soon as possible after surgery 4. Possible seizure disorder ?Unsure as to what medications he takes as they are not verifiable at this time ?Can restart his carbamazepine once verified 5. COPD ?Not in exacerbation 6. GERD ?Stable ?Continue with PPI when verified DVT: Therapeutic INR Charges/Coding Visit Charges Inpatient E&M: 99041 Init Hosp L3
[2021-08-18 23:53] VITALS: PULSE 84
[2021-08-18] MEDS: Phytonadione (Vit K1) 5 MG TABLET PO (23:53)
[2021-08-18] MEDS: Metoprolol Tartrate 25 MG Tablet PO (23:53)
[2021-08-19] VITALS (23 sets, daily range): BP systolic 123–170; BP diastolic 48–76; PULSE 55–86; RESP 16–22; TEMP 36.4–37.2; O2SAT 92–97; BMI 23.7
[2021-08-19 05:46] LABS: Absolute Lymphocyte Count 1.01 X10^3/uL (0.83-4.51); Absolute Neutrophil Count 9.1 X10^3/uL (2.0-7.7); Basophil# 0.04 X10^3/uL; Basophil% 0.4 % (0-1); Eosinophil# 0.01 X10^3/uL; Eosinophils% 0.1 % (0-5); Hematocrit 29.3 % (40-54); Hemoglobin 8.7 g/dL (13.0-16.5); Lymphocyte # 1.01 X10^3/ul (0.83-4.51); Lymphocyte % 9.4 % (19-41); Mean Corp Hgb Conc 29.7 g/dL (32-36); Mean Corpuscular Hgb 21.5 pg (27.0-32.0); Mean Corpuscular Volume 72.3 fL (80-94); Mean Platelet Vol. 9.9 fl (6.2-12.0); Monocyte# 0.56 X10^3/uL; Monocyte% 5.2 % (0-10); NRBC Flagged by Analyzer 0 % (0-5); Neutrophil % 84.2 % (47-70); Platelet Count 459 K/mm3 (150-450); RBC Distribution Width SD 48.5 fl (35.1-43.9); Red Blood Count 4.05 M/mm3 (4.6-6.2); White Blood Count 10.8 K/mm3 (4.4-11.0)
[2021-08-19 05:58] LABS: International Normalized Ratio 2.4; Prothrombin Time (Protime)PT. 25.6 SECONDS (11.7-14.9)
[2021-08-19 06:20] LABS: ALB/GLOB Ratio 0.7 RATIO (0.9-2.4); AST(SGOT) 421 U/L (15-37); Alanine Aminotransfer ALT/SGPT 536 U/L (16-61); Albumin, Serum 2.5 g/dL (3.2-5.0); Alkaline Phosphatase 271 U/L (45-117); Anion Gap 5 (5-15); BUN 10 mg/dL (7-18); BUN/Creat Ratio 10.4 RATIO (10-20); Chloride 105 mmol/L (98-107); Creatinine, Serum 0.96 mg/dL (0.70-1.30); EST Glomerular Filtration Rate 82 mL/min (>60); Est Glom Filt Rate - Afr Amer 99 mL/min (>60); Estimated Creatinine Clearance 67.29 ml/min; Globulin 3.7 g/dL (2.2-4.2); Glucose 103 mg/dL (74-106); Potassium 3.7 mmol/L (3.5-5.1); Protein, Total 6.2 g/dL (6.4-8.2); Sodium Level 138 mmol/L (136-145)
[2021-08-19] MEDS: Ondansetron 4 MG/2 ML Vial IV (09:07)
[2021-08-19] MEDS: Metoprolol Tartrate 25 MG Tablet PO ×2 (09:08→21:18)
[2021-08-19] MEDS: Losartan Potassium 50 MG Tablet PO (09:08)
[2021-08-19] MEDS: amLODIPine 10 MG Tablet PO (09:08)
[2021-08-19] MEDS: Morphine 4 MG/ML Syringe IV (09:08)
[2021-08-19] MEDS: 0.9% Saline Lock 10 ML Syringe IV ×3 (09:08→21:33)
[2021-08-19 10:41] LABS: Bedside Glucose 107 mg/dL (74-106)
--- NOTE | 2021-08-19 12:15 | CASEMGMT ---
SEYMOUR BOLES UNIT CONTROLLER CM to room to meet with patient for initial transition planning/care coordination assessment. SEYMOUR BOLES introduced self and role at [facility]. Pt voices understanding and consents to assessment at this time. Pt resting in bed in no distress at this time. Pt is A/O at this time. Pt answered questions, but often answers were vague and blunt at times. Care providers, pharmacy, and demographics verified/updated at this time. PCP: Dr Douglas Specialists: Dr Villa--vascular surgeon @ [facility]. Preferred Pharmacy: [facility] Retail Insurance: [employer], [facility] Prescription Benefit: Yes Living Will/HPOA: Pt states has both. Pt's ex-, Giovana, is his HPOA. LNOK: Ex-/POA, Giovana Bhakta. Pt has a daughter, Michelle Montana. Pt states he does not want her listed on his demographics. Living Arrangements: Lives alone in mobile home w/5 steps to enter. Pt states there is an elevator to get into his home. SEYMOUR BOLES inquired if it is a chair or stair lift but he states no, it is an elevator. Pt states is has been difficult to take care of himself in the home. He states he has a CM, Liseth, and that he is supposed to have aides assist in the home, but states, They haven't come because they're lazy. Pt states he receives home delivered meals and the [employer] also helps provide some meals. Pt stated a nurse comes to help me with my medication but then unable to recall where the nurse is from. SEYMOUR BOLES inquired if he asked nurse to assist w/getting a glucometer or teaching of same. Pt stated, No. She doesn't stick around enough to ask her. Transportation: Pt states he does not drive--he states his daughter provides transportation and then states, She took my car and phone DME: States has the following DME: shower chair, cane, medical alert button, nebulizer. Pt states he is supposed to wear a CPAP or BIPAP but he doesn't, stating, Giovana made it so I wasn't allowed to use it. Pt would not elaborate further. Pt states he does not have a glucometer, stating he used to have one but no one taught me how to use it and I don't have it any longer'. Pt states he has Home O2 that he got through [employer] and states he has a concentrator and portable tanks, but states he doesn't use them. He states he is supposed to wear 2 l/m but not sure if it is supposed to be worn all the time or just w/exertion. He states he does not recall switching DME companies after [employer] went out of business. HHC/SNF: Discussed discharge planning w/pt. He states he may be interested in HHC @ discharge, stating, I can't tell you that right now. PLAN: TBD. Home w/possible HHC. Perry GROSSN RN CM
--- NOTE | 2021-08-19 12:27 | CASEMGMT ---
NATHANIEL was informed patient has [facility] and Liseth is his outpatient case manager. NATHANIEL called [facility] and spoke with Frankie on the coverage line. Patient has a medical alert button. He is supposed to have aides from [place], but they are having staffing issues. Mago Hayes GARAGE SUPERVISOR KRISTIAN
[2021-08-19 13:26] LABS: International Normalized Ratio 1.7
[2021-08-19 13:26] LABS: Bedside Glucose 108 mg/dL (74-106)
[2021-08-19 13:27] LABS: Partial Thromboplast Time 37.1 Seconds (24.1-36.2)
[2021-08-19] MEDS: Ipratropium/Albuterol Sulfate 3 ML AMPUL.NEB INHALATION ×2 (14:06→20:09)
--- NOTE | 2021-08-19 14:43 | PCM.PN.BLA ---
Progress Note The patient received FFP and was on the table to begin cholecystectomy when he started to complain about crushing pressure in his chest which started just before he was entering the OR. Surgery was aborted and the patient will be sent back to the floor. I discussed this with the hospitalist service and will be consult cardiology for opinion and I will order cholecystostomy tube placement while cardiac work-up is performed. Plan to treat his acute cholecystitis with drainage and antibiotics and I will bring him back in a few weeks after cardiac work-up for cholecystectomy. Patient may start a clear liquid diet if he is feeling hungry although he was feeling uncomfortable. Cornelius Andrews MD Pager: [facility] [address] [place] [address] [address] [place] [address] Office:
--- NOTE | 2021-08-19 14:48 | EKG12_ITS ---
Test Reason : Blood Pressure : / mmHG Vent. Rate : 058 BPM Atrial Rate : 057 BPM P-R Int : 000 ms QRS Dur : 092 ms QT Int : 430 ms P-R-T Axes : 000 066 077 degrees QTc Int : 422 ms Sinus rhythm Confirmed by MONTANA RANDALL, OSMANY ([id number]), sound editor RAE NATH ([id number]) on 08/20/2021 1:38:59 PM Referred By: OSIRIS Confirmed By:JAMAICA BOYLE MD
--- NOTE | 2021-08-19 15:04 | PN.HOSP_ITS ---
Subjective Subjective Follow-up on acute cholecystitis: Patient was seen and examined prior to going to PACU for his planned cholecystectomy. His INR this morning was 2.4. He received 2 units of packed RBCs. Repeat INR was 1.6. Patient denied any complaints at time of being seen. In PACU, he complained of chest pressure that was left-sided. EKG showed no acute ST-T changes. Patient stated over the last few days he has been falling, has fallen several times on the same side. Planned laparoscopic cholecystectomy was postponed. Discussed with general surgery, cardiology will be consulted, patient will also receive cholecystostomy tube tomorrow with IR. Objective Data Objective Data Vital Signs: Vital Signs Temp Pulse Resp BP Pulse Ox 98.4 F 61 16 129/66 H 93 08/19/21 14:42 08/19/21 15:00 08/19/21 15:00 08/19/21 15:00 08/19/21 15:00 Oxygen Flow Rate (L/min) 3 Oxygen Delivery Method Nasal Cannula Weight: 71 kg Body Mass Index (BMI) 23.7 Intake & Output: Intake and Output for Last 24 Hours 08/17/21 08/18/21 08/19/21 23:59 23:59 23:59 Intake Total 535 / 535 1491.67 / 1491.67 Output Total 875 / 875 Balance 535 / 535 616.67 / 616.67 Lab / Micro Data Result Diagrams: 08/19/21 05:33 08/19/21 05:33 Labs: Laboratory Results - last 24 hr 08/18/21 19:05: WBC 10.4, RBC 4.57 L, Hgb 9.9 L, Hct 33.7 L, MCV 73.7 L, MCH 21.7 L, MCHC 29.4 L, RDW Std Deviation 50.4 H, RDW Coeff of Aly 19.1 H, Plt C ount 522 H, MPV 9.8, Immature Gran % (Auto) 0.500, Neut % (Auto) 91.9 H, Lymph % (Auto) 3.3 L, Shannon % (Auto) 3.9, Eos % (Auto) 0.0, Baso % (Auto) 0.4, Absolute Neuts (auto) 9.6 H, Absolute Lymphs (auto) 0.34 L, Nucleated RBC % 0, Differential Comment SCANNED 08/18/21 19:05: Sodium 138, Potassium 3.6, Chloride 102, Carbon Dioxide 28.0, Anion Gap 8, BUN 14, Creatinine 1.17, Estim Creat Clear Calc 55.21, Est GFR (MDRD) Af Amer 79, Est GFR (MDRD) Non-Af 65, BUN/Creatinine Ratio 12.0, Glucose 186 H, Calcium 9.3, Total Bilirubin 1.20 H, Direct Bilirubin 0.89 H, AST 665 H, ALT 635 H, Alkaline Phosphatase 308 H, Total Protein 7.1, Albumin 3.1 L, Globulin 4.0, Lipase 134 08/18/21 19:05: PT 24.1 H, INR 2.3 08/19/21 05:33: WBC 10.8, RBC 4.05 L, Hgb 8.7 L, Hct 29.3 L, MCV 72.3 L, MCH 21.5 L, MCHC 29.7 L, RDW Std Deviation 48.5 H, RDW Coeff of Aly 19.0 H, Plt Count 459 H, MPV 9.9, Immature Gran % (Auto) 0.700, Neut % (Auto) 84.2 H, Lymph % (Auto) 9.4 L, Shannon % (Auto) 5.2, Eos % (Auto) 0.1, Baso % (Auto) 0.4, Absolute Neuts (auto) 9.1 H, Absolute Lymphs (auto) 1.01, Nucleated RBC % 0 08/19/21 05:33: PT 25.6 H, INR 2.4 08/19/21 05:33: Sodium 138, Potassium 3.7, Chloride 105, Carbon Dioxide 28.0, Anion Gap 5, BUN 10, Creatinine 0.96, Estim Creat Clear Calc 67.29, Est GFR (MDRD) Af Amer 99, Est GFR (MDRD) Non-Af 82, BUN/Creatinine Ratio 10.4, Glucose 103, Calcium 8.0 L, Total Bilirubin 1.40 H, AST 421 H, ALT 536 H, Alkaline Phosphatase 271 H, Total Protein 6.2 L, Albumin 2.5 L, Globulin 3.7, Albumin/Globulin Ratio 0.7 L 08/19/21 05:33: Hemoglobin A1c 6.0 H 08/19/21 06:45: Blood Type O POSITIVE, Antibody Screen NEGATIVE 08/19/21 10:29: POC Glucose 107 H 08/19/21 12:52: PT 19.0 H, INR 1.7, APTT 37.1 H 08/19/21 13:19: POC Glucose 108 H Micro: Microbiology 08/18/21 20:40 Nasal Secretion SARS-CoV-2 Antigen (Rapid) - Final Radiography Diagnostic Testing: Radiology Impression Gallbladder Ultrasound 08/18/21 19:59 IMPRESSION: There is biliary sludge dependent within the gallbladder vs small gallstones. There is hypoechoic foci of the right kidney. These are consistent for cysts. No follow up required. Electronically Signed: Raymundo Duron MD at 21:12 EST Reading Location ID and State: [facility] / [place] , Service support , Physical Exam Narrative Physical exam: General: Alert, Oriented x3, Cooperative, No apparent distress, Well developed HEENT: Atraumatic Oral: Moist Mucosa Neck: Supple Lungs: Left lower chest wall/left upper quadrant pain, reproducible clear to auscultation Cardiovascular: HS I+II, regular, no murmurs Abdomen: Bowel Sounds Present, Soft, Non Tender Extremities: No edema Assessment & Plan Assessment/Plan (1) Transaminitis: (2) Acute cholecystitis: PLAN: 1. Acute chest pain, likely secondary to musculoskeletal pain as chest discomfort is reproducible EKG shows no acute ST-T changes, high-sensitivity troponin is 13 History of CAD. Cardiology consulted, trend troponins Continue metoprolol, losartan, aspirin, statin 2. Acute cholecystitis, fairly stable, Patient will going for cholecystostomy tomorrow with IR Continue on IV Zosyn, repeat blood work in a.m. 3. Hypertension, controlled, continue on amlodipine, losartan, metoprolol 4. Lupus anticoagulant with possible history of a DVT, patient is a poor historian INR is currently 1.6, status post 2 units of FFP Patient going for IR cholecystostomy tube placement Continue to hold Coumadin 5. Seizure disorder, continue carbamazepine 6. Nicotine dependence, on replacement, advised to quit 7. Rest of his chronic medical conditions including COPD with chronic hypoxic respiratory failure on 2 L of oxygen, GERD, remained stable 8. DVT PPx- SCDs pending resumption of coumadin Charges/Coding Visit Charges Inpatient E&M: 79087 Subs Hosp L3
[2021-08-19 15:39] LABS: Troponin-I HS 13 pg/mL (3.0-78.0)
--- NOTE | 2021-08-19 15:57 | RAD_ITS ---
STUDY: X-RAY CHEST REASON FOR EXAM: Male, 71 years old. Left lower chest pain TECHNIQUE: Frontal view COMPARISON: 04/01/2021 FINDINGS: The lungs are clear and expanded. There is no demonstrated pleural abnormality. Normal size heart. Normal mediastinum and gale. Normal visualized pulmonary arteries. Calcified aortic arch and descending thoracic aorta. Normal visualized thoracic spine. The degenerative changes at the shoulders. There is no demonstrated abnormality of the visualized soft tissue structures of the upper abdomen. RAD/Chest 1 View (Portable) IMPRESSION: Normal x-ray examination of the chest. Electronically Signed: Mario Cramer DO at 16:17 EST ,
[2021-08-19 16:16] LABS: Bedside Glucose 103 mg/dL (74-106)
[2021-08-19] MEDS: carBAMazepine 200 MG Tablet PO ×2 (16:18→21:18)
[2021-08-19] MEDS: Morphine 2 MG/ML Syringe IV ×2 (16:29→21:49)
[2021-08-19 17:11] LABS: Troponin-I HS 13 pg/mL (3.0-78.0)
[2021-08-19] MEDS: 0.9% Normal Saline 1,000 ML 100 ML IV (18:17)
--- NOTE | 2021-08-19 19:55 | ECHOD_ITS ---
Reason For Study: Afib, Aflutter Procedure This was a 2D Doppler, Color Flow transthoracic echocardiogram. Exam performed portable in patient room. Left Ventricle Normal LV size. Left ventricular systolic function is normal. The estimated ejection fraction is 65 %. Stage 1 diastolic dysfunction. No regional wall motion abnormalities noted. Right Ventricle Normal RV size. Normal systolic function. Atria Normal left atrium. Normal right atrium. Mitral Valve Normal mitral valve. Mild (1+) eccentric mitral valve insufficiency. Tricuspid Valve Normal tricuspid valve. Aortic Valve Normal aortic valve. Trisinus/trileaflet aortic valve. Pulmonic Valve Normal pulmonic valve. Great Vessels Normal aortic root. The pulmonary artery is normal size. Normal inferior vena cava. Pericardium/Pleural No pericardial effusion. MMode/2D Measurements & Calculations LVIDd: 4.8 cm IVSd: 1.0 cm Ao root diam: 3.0 cm LVIDs: 3.1 cm LVPWd: 1.1 cm RVDd: 2.8 cm FS: 35.0 % LAV(MOD-bp): 43.0 ml LVAd ap4: 26.1 cm2 SV(MOD-sp4): 45.3 ml LAV(MOD-bp) Indexed: 23.4 ml/m2 LVLd ap4: 7.7 cm LAV(MOD-sp2): 45.6 ml EDV(MOD-sp4): 73.2 ml LAV(MOD-sp4): 41.1 ml EDV(sp4-el): 74.5 ml LVAs ap4: 14.6 cm2 LVLs ap4: 6.9 cm ESV(MOD-sp4): 27.9 ml ESV(sp4-el): 26.3 ml EF(MOD-sp4): 61.8 % EF(sp4-el): 64.8 % SV(sp4-el): 48.2 ml LA A4 area: 16.2 cm2 LA dimension(2D): 4.4 cm RA A4 area: 13.6 cm2 Doppler Measurements & Calculations MV E max doron: 98.9 cm/sec Lat Peak E' Doron: 7.6 cm/sec Med Peak E' Doron: 7.5 cm/sec MV A max doron: 108.7 cm/sec E/E' lat: 13.1 E/E' med: 13.2 MV E/A: 0.91 Ao V2 max: 132.1 cm/sec LV V1 max: 96.6 cm/sec PA V2 max: 95.9 cm/sec Ao max P.0 mmHg LV V1 max P.7 mmHg Ao V2 mean: 88.6 cm/sec Ao mean P.5 mmHg Ao V2 VTI: 29.5 cm ECHO/Echo Complete Interpretation Summary Normal LV size. Left ventricular systolic function is normal. The estimated ejection fraction is 65 %. Stage 1 diastolic dysfunction. Mild (1+) eccentric mitral valve insufficiency. Ordering Physician: Brendan Vallejo Referring Physician: Daija Douglas Performed By: Cristina Jacobo, GABY, RVT
--- NOTE | 2021-08-19 19:56 | PCM.CONS.C ---
Assessment & Plan Assessment/Plan (1) Hypertension: PLAN: He does have a history of hypertension which is uncontrolled at this particular time we will continue to aggressively monitor his blood pressure. I suspect that the chest discomfort may have been related to his uncontrolled blood pressure. His cardiac enzymes are thus far normal I would recommend an echocardiogram to assess his ventricular function. If no significant abnormalities noted then I would recommend proceeding with the surgery. (2) Preop cardiovascular exam: PLAN: I suspect that the chest discomfort may have been related to his uncontrolled blood pressure. His cardiac enzymes are thus far normal I would recommend an echocardiogram to assess his ventricular function. If no significant abnormalities noted then I would recommend proceeding with the surgery. (3) 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: PLAN: He is on chronic anticoagulation likely secondary to atrial fibrillation I do not see any evidence of the above at this particular time we will continue monitoring him. Thank you for allowing me to participate in the care of your patient. Please don't hesitate to call if any issues arise. HPI Consult Data Date of Consult: 08/19/21 HPI Narrative HPI Narrative: PEDRO PABLO SIERRA, is a 71 M who presents with abdominal discomfort and thought to have cholecystitis. He was scheduled to go to the operating room and complained of chest discomfort and on the basis of the above the procedure was canceled and cardiology consultation sought. He has not had any further chest discomfort. He does have a history of paroxysmal atrial fibrillation and had previously been on anticoagulation. He denies any current neck arm or jaw discomfort suggest angina and has not had any chest pain. His EKG done here demonstrated normal sinus rhythm with no acute changes. He has had no dizziness or diaphoresis no near syncope or syncope. His blood pressure at that time was noted to be markedly elevated. [facility] Medical History Asthma Atrial fibrillation Chronic pain COPD (chronic obstructive pulmonary disease) Depression Diabetes Falls frequently High cholesterol Hypertension Irregular heart beat Kidney stones On home oxygen therapy Pancreatitis Seizures Sleep apnea Smoker Stroke/cerebrovascular accident Home Medications gabapentin 300 mg PO DAILY 01/26/14 [History Last Taken 03/26/20] tamsulosin 0.4 mg PO QHS 01/26/14 [History Last Taken 10/25/19 08:33] finasteride 5 mg PO DAILY 11/14/14 [History Last Taken 10/25/19 08:35] atorvastatin 40 mg PO QHS 09/23/15 [History Last Taken 03/25/20] metoprolol tartrate 50 mg PO BID 12/02/15 [History Last Taken 03/26/20] sertraline 100 mg PO DAILY 12/02/15 [History Last Taken 10/25/19 08:35] mirtazapine 15 mg PO QHS 08/16/19 [History Last Taken 10/25/19 20:18] amlodipine 5 mg PO DAILY 10/25/19 [History Last Taken 03/26/20] clopidogrel 75 mg PO DAILY 10/25/19 [History Last Taken 03/26/20] carbamazepine 200 mg PO Q12H 10/26/19 [History Last Taken 10/25/19 20:18] warfarin 10 mg PO DAILY 02/25/20 [History Last Taken Unknown] aspirin 81 mg PO DAILY@0800 08/08/20 [History Last Taken Unknown] albuterol sulfate 2.5 mg INHALATION Q4H PRN PRN vial.neb. 08/12/20 [Rx Last Taken Unknown] dicyclomine 20 mg PO TID 08/19/21 [History Last Taken Unknown] ipratropium-albuterol 3 ml INHALATION Q6HWA.RT 08/19/21 [History Last Taken Unknown] losartan 100 mg PO DAILY 08/19/21 [History Last Taken Unknown] pantoprazole 40 mg PO DAILY 08/19/21 [History Last Taken Unknown] Allergy/AdvReac Type Severity Reaction Status Date / Time No Known Allergies Allergy Verified 08/18/21 19:04 Family History unable to obtain Surgical History History of appendectomy Social History Smoking Status: Former smoker ROS Constitutional Constitutional: Denies fever(s) or weight loss Eyes Eyes: Reports systems reviewed and no addt'l complaints, except as documented ENT HEENT: Reports systems reviewed and no addt'l complaints, except as documented Cardiovascular Cardiovascular: Reports chest pain at rest; Denies dyspnea at rest, dyspnea on exertion, edema, palpitations or paroxysmal nocturnal dyspnea Respiratory/Chest Respiratory/Chest: Denies dyspnea on exertion, productive cough, shortness of breath at rest or shortness of breath with exertion Gastrointestinal Gastrointestinal: Reports abdominal pain; Denies change in bowel habits, nausea, vomiting or weight changes Genitourinary Genitourinary: Denies difficulty urinating Musculoskeletal Musculoskeletal: Denies joint stiffness or muscle weakness Integumentary Integumentary: Denies lesions Neurologic Neurologic: Denies dizziness or syncope Psychiatric Psychiatric: Denies anxiety Endocrine Endocrinology: Denies excessive sweating or fatigue Hematologic/Lymphatic Hematologic/Lymphatic: Denies anemia Allergic/Immunologic Allergic/Immunologic: Denies seasonal rhinorrhea Physical Exam Const alert, oriented x3 and no apparent distress General Appearance: cooperative HEENT hearing grossly normal bilaterally Head and Scalp: atraumatic Eyes EOMs intact bilaterally Neck General: normal visual inspection Chest inspection of chest normal and palpation of chest normal Resp normal respiratory effort Auscultation: clear to auscultation bilaterally Cardio regular rate, regular rhythm, S1 normal heart sound and S2 normal heart sound Jugular Venous Distention: JVD GI normal to inspection, nondistended, normoactive bowel sounds Extremity normal capillary refill and no pedal edema Peripheral Pulses: Yes pulses 2+ throughout and femoral pulses present Skin no rashes or lesions noted Neuro oriented x3 and CN's II-XII intact bilaterally Psych Appearance: grossly normal and appropriate Risk Stratification Risk Stratification Applicable: Yes Age >/= 65: Yes >/= 3 CAD Risk Factors (HTN, HLD, DM, family hx of CAD, or current smoker): No Aspirin Use in the Past 7 Days: No Severe Angina (>/= episodes in 24 hours): No EKG ST Changes >/= 0.5mm: No Positive Cardiac Marker: No GONSALO Risk Stratification Score: 1 GONSALO % Risk: 5% Risk Objective Data Vital Signs: Vital Signs Temp Pulse Resp BP Pulse Ox 98.2 F 80 18 137/62 H 94 08/19/21 18:15 08/19/21 18:15 08/19/21 18:15 08/19/21 18:15 08/19/21 18:15 Oxygen Flow Rate (L/min) 4 Oxygen Delivery Method Nasal Cannula Weight: 156 lb 8.451 oz Body Mass Index (BMI) 23.7 Intake & Output: Intake and Output for Last 24 Hours 08/17/21 08/18/21 08/19/21 23:59 23:59 23:59 Intake Total 535 / 535 2193.34 / 2193.34 Output Total 875 / 875 Balance 535 / 535 1318.34 / 1318.34 Lab / Micro Data Result Diagrams: 08/19/21 05:33 08/19/21 05:33 Labs: Laboratory Results - last 24 hr 08/18/21 19:05: Differential Comment SCANNED 08/19/21 05:33: WBC 10.8, RBC 4.05 L, Hgb 8.7 L, Hct 29.3 L, MCV 72.3 L, MCH 21.5 L, MCHC 29.7 L, RDW Std Deviation 48.5 H, RDW Coeff of Aly 19.0 H, Plt Count 459 H, MPV 9.9, Immature Gran % (Auto) 0.700, Neut % (Auto) 84.2 H, Lymph % (Auto) 9.4 L, [place] % (Auto) 5.2, Eos % (Auto) 0.1, Baso % (Auto) 0.4, Absolute Neuts (auto) 9.1 H, Absolute Lymphs (auto) 1.01, Nucleated RBC % 0 08/19/21 05:33: PT 25.6 H, INR 2.4 08/19/21 05:33: Sodium 138, Potassium 3.7, Chloride 105, Carbon Dioxide 28.0, Anion Gap 5, BUN 10, Creatinine 0.96, Estim Creat Clear Calc 67.29, Est GFR (MDRD) Af Amer 99, Est GFR (MDRD) Non-Af 82, BUN/Creatinine Ratio 10.4, Glucose 103, Calcium 8.0 L, Total Bilirubin 1.40 H, AST 421 H, ALT 536 H, Alkaline Phosphatase 271 H, Total Protein 6.2 L, Albumin 2.5 L, Globulin 3.7, Albumin/Globulin Ratio 0.7 L 08/19/21 05:33: Hemoglobin A1c 6.0 H 08/19/21 06:45: Blood Type O POSITIVE, Antibody Screen NEGATIVE 08/19/21 10:29: POC Glucose 107 H 08/19/21 12:52: PT 19.0 H, INR 1.7, APTT 37.1 H 08/19/21 13:19: POC Glucose 108 H 08/19/21 14:47: Troponin I High Sens 13 08/19/21 16:07: POC Glucose 103 08/19/21 16:20: Troponin I High Sens 13 Micro: Microbiology 08/18/21 20:40 Nasal Secretion SARS-CoV-2 Antigen (Rapid) - Final Cardiology Labs/Tests 08/19/21 05:33: WBC 10.8, RBC 4.05 L, Hgb 8.7 L, Hct 29.3 L, MCV 72.3 L, MCH 21.5 L, MCHC 29.7 L, Plt Count 459 H, MPV 9.9, Immature Gran % (Auto) 0.700, Neut % (Auto) 84.2 H, Lymph % (Auto) 9.4 L, [place] % (Auto) 5.2, Eos % (Auto) 0.1, Baso % (Auto) 0.4, Absolute Neuts (auto) 9.1 H, Nucleated RBC % 0 08/19/21 05:33: PT 25.6 H, INR 2.4 08/19/21 05:33: Sodium 138, Potassium 3.7, Chloride 105, Carbon Dioxide 28.0, Anion Gap 5, BUN 10, Creatinine 0.96, Est GFR (MDRD) Af Amer 99, Est GFR (MDRD) Non-Af 82, BUN/Creatinine Ratio 10.4, Glucose 103, Calcium 8.0 L, Total Bilirubin 1.40 H 08/19/21 05:33: Hemoglobin A1c 6.0 H 08/19/21 12:52: PT 19.0 H, INR 1.7, APTT 37.1 H Rhythm: EKG: ECHO: Stress Test: Cardiac Cath: PCI: CT Surgery: Holter monitor: EPS: PPM: CXR: Chest CT Scan: Radiography Diagnostic Testing: Radiology Impression Gallbladder Ultrasound 08/18/21 19:59 IMPRESSION: There is biliary sludge dependent within the gallbladder vs small gallstones. There is hypoechoic foci of the right kidney. These are consistent for cysts. No follow up required. Electronically Signed: Raymundo Duron MD at 21:12 EST , Chest X-Ray 08/19/21 15:57 IMPRESSION: Normal x-ray examination of the chest. Electronically Signed: Mario Cramer DO at 16:17 EST ,
[2021-08-19] MEDS: Atorvastatin Calcium 40 MG Tablet PO (21:17)
[2021-08-19] MEDS: MELATONIN 3 MG TABLET PO (21:23)
[2021-08-19 22:47] LABS: Troponin-I HS 15 pg/mL (3.0-78.0)
[2021-08-19 23:01] LABS: Bedside Glucose 113 mg/dL (74-106)
[2021-08-20] VITALS (15 sets, daily range): BP systolic 163–213; BP diastolic 60–79; PULSE 56–70; RESP 13–20; TEMP 36.6–37; O2SAT 86–98; BMI 23.7
[2021-08-20] MEDS: 0.9% Normal Saline 1,000 ML 100 ML IV ×2 (02:11→12:08)
[2021-08-20 05:11] LABS: Absolute Lymphocyte Count 0.77 X10^3/uL (0.83-4.51); Absolute Neutrophil Count 4.9 X10^3/uL (2.0-7.7); Basophil# 0.05 X10^3/uL; Basophil% 0.8 % (0-1); Eosinophil# 0.14 X10^3/uL; Eosinophils% 2.2 % (0-5); Hematocrit 27.1 % (40-54); Hemoglobin 7.8 g/dL (13.0-16.5); Lymphocyte # 0.77 X10^3/ul (0.83-4.51); Lymphocyte % 12.2 % (19-41); Mean Corp Hgb Conc 28.8 g/dL (32-36); Mean Corpuscular Volume 72.8 fL (80-94); Mean Platelet Vol. 9.7 fl (6.2-12.0); Monocyte# 0.43 X10^3/uL; Monocyte% 6.8 % (0-10); NRBC Flagged by Analyzer 0 % (0-5); Neutrophil # 4.85 X10^3/uL (2.7-7.7); Neutrophil % 77.2 % (47-70); Platelet Count 409 K/mm3 (150-450); RBC Distribution Width CV 19.5 % (11.6-14.6); RBC Distribution Width SD 50.8 fl (35.1-43.9); Red Blood Count 3.72 M/mm3 (4.6-6.2); White Blood Count 6.3 K/mm3 (4.4-11.0)
[2021-08-20 05:25] LABS: International Normalized Ratio 1.3; Prothrombin Time (Protime)PT. 15.8 SECONDS (11.7-14.9)
[2021-08-20 05:37] LABS: ALB/GLOB Ratio 0.8 RATIO (0.9-2.4); AST(SGOT) 150 U/L (15-37); Alanine Aminotransfer ALT/SGPT 335 U/L (16-61); Albumin, Serum 2.7 g/dL (3.2-5.0); Alkaline Phosphatase 224 U/L (45-117); Anion Gap 5 (5-15); BUN 12 mg/dL (7-18); BUN/Creat Ratio 11.9 RATIO (10-20); Calcium,Total 7.9 mg/dL (8.5-10.1); Chloride 107 mmol/L (98-107); Creatinine, Serum 1.01 mg/dL (0.70-1.30); EST Glomerular Filtration Rate 77 mL/min (>60); Est Glom Filt Rate - Afr Amer 93 mL/min (>60); Estimated Creatinine Clearance 63.96 ml/min; Globulin 3.5 g/dL (2.2-4.2); Glucose 99 mg/dL (74-106); Potassium 3.7 mmol/L (3.5-5.1); Protein, Total 6.2 g/dL (6.4-8.2); Sodium Level 139 mmol/L (136-145)
[2021-08-20 06:26] LABS: Bedside Glucose 108 mg/dL (74-106)
[2021-08-20] MEDS: Ipratropium/Albuterol Sulfate 3 ML AMPUL.NEB INHALATION ×2 (07:03→20:34)
--- NOTE | 2021-08-20 08:30 | CT_ITS ---
PROCEDURE: CT GUIDED percutaneous cholecystostomy. DATE: 08/20/2021 INDICATION: Male, 71 years old. Acute cholecystitis. PHYSICIAN: Jasson Plata M.D. RADIATION DOSAGE (If Supplied By Facility): CTDIvol = ( 16.76 ) mGy, DLP = ( 866.09 ) mGycm. Individualized dose optimization techniques were utilized. PROCEDURE: The risks, benefits, and alternatives to the procedure were explained to the patient. The specific risk of hemorrhage requiring further treatment or intervention was detailed and accepted. Follow-up instructions were discussed with the patient as well. Written informed consent was obtained. The patient was brought into the CT suite and placed in the supine position. . An appropriate entry site was identified. The overlying skin was prepped and draped in the usual sterile fashion. 1% lidocaine was administered subcutaneously for local anesthesia. Conscious sedation was performed. The patient received 2 mg of VERSED and 50 mcg of FENTANYL intravenously. Conscious sedation was started at 9:20 AM and terminated at 9:40 AM. The patient was independently monitored by the department nurse. Under CT guidance, a percutaneous cholecystostomy was performed utilizing an 8 Maldivian catheter drainage. The patient tolerated the procedure well without immediate complications. CT/CT Guidance Abscess Drg w/Cath IMPRESSION: Successful CT guided percutaneous cholecystostomy with placement of an 8 Maldivian catheter within the gallbladder lumen. The patient tolerated the procedure well. Conscious sedation protocol was followed. Electronically Signed: Jasson Plata MD at 10:15 EST ,
[2021-08-20] MEDS: Midazolam 2 MG/2 ML Syringe (09:20)
[2021-08-20] MEDS: 0.9% Normal Saline 500 ML IV.SOLN. (09:20)
[2021-08-20] MEDS: fentaNYL 100 MCG/2 ML Ampul (09:20)
[2021-08-20] MEDS: Lidocaine 2% (5ml sdv) 5 ML VIAL.MPF (09:20)
[2021-08-20] MEDS: amLODIPine 10 MG Tablet PO (12:10)
[2021-08-20] MEDS: Metoprolol Tartrate 25 MG Tablet PO ×2 (12:10→22:19)
[2021-08-20] MEDS: carBAMazepine 200 MG Tablet PO ×2 (12:10→22:19)
[2021-08-20] MEDS: Losartan Potassium 100 MG Tablet PO (12:11)
[2021-08-20] MEDS: Pantoprazole Sodium 40 MG Tablet PO (12:11)
[2021-08-20] MEDS: Aspirin 81 MG TAB.CHEW PO (12:11)
[2021-08-20] MEDS: Morphine 2 MG/ML Syringe IV ×3 (12:13→19:53)
--- NOTE | 2021-08-20 12:28 | PCM.PN.SRG ---
Subjective Subjective Patient reports some mild upper quadrant discomfort. No chest pain this morning. Objective Data Objective Data Vital Signs: Vital Signs Temp Pulse Resp BP Pulse Ox 98.3 F 60 18 184/71 H 96 08/20/21 12:00 08/20/21 12:10 08/20/21 12:00 08/20/21 12:10 08/20/21 12:00 Oxygen Flow Rate (L/min) 3 Oxygen Delivery Method Nasal Cannula Weight: 156 lb 8.451 oz Body Mass Index (BMI) 23.7 Intake & Output: Intake and Output for Last 24 Hours 08/18/21 08/19/21 08/20/21 23:59 23:59 23:59 Intake Total 535 / 535 2236.88 / 2436.88 2086.67 / 2086.67 Output Total 875 / 1275 1075 / 1075 Balance 535 / 535 1361.88 / 1161.88 1011.67 / 1011.67 Lab / Micro Data Result Diagrams: 08/20/21 04:34 08/20/21 04:34 Labs: Laboratory Results - last 24 hr 08/19/21 12:52: PT 19.0 H, INR 1.7, APTT 37.1 H 08/19/21 13:19: POC Glucose 108 H 08/19/21 14:47: Troponin I High Sens 13 08/19/21 16:07: POC Glucose 103 08/19/21 16:20: Troponin I High Sens 13 08/19/21 22:25: Troponin I High Sens 15 08/19/21 22:54: POC Glucose 113 H 08/20/21 04:34: PT 15.8 H, INR 1.3 08/20/21 04:34: WBC 6.3, RBC 3.72 L, Hgb 7.8 L, Hct 27.1 L, MCV 72.8 L, MCH 21.0 L, MCHC 28.8 L, RDW Std Deviation 50.8 H, RDW Coeff of Aly 19.5 H, Plt Count 409, MPV 9.7, Immature Gran % (Auto) 0.800, Neut % (Auto) 77.2 H, Lymph % (Auto) 12.2 L, [place] % (Auto) 6.8, Eos % (Auto) 2.2, Baso % (Auto) 0.8, Absolute Neuts (auto) 4.9, Absolute Lymphs (auto) 0.77 L, Nucleated RBC % 0 08/20/21 04:34: Sodium 139, Potassium 3.7, Chloride 107, Carbon Dioxide 27.0, Anion Gap 5, BUN 12, Creatinine 1.01, Estim Creat Clear Calc 63.96, Est GFR (MDRD) Af Amer 93, Est GFR (MDRD) Non-Af 77, BUN/Creatinine Ratio 11.9, Glucose 99, Calcium 7.9 L, Total Bilirubin 0.70, AST 150 H, ALT 335 H, Alkaline Phosphatase 224 H, Total Protein 6.2 L, Albumin 2.7 L, Globulin 3.5, Albumin/Globulin Ratio 0.8 L 08/20/21 06:16: POC Glucose 108 H Micro: Microbiology 08/18/21 20:40 Nasal Secretion SARS-CoV-2 Antigen (Rapid) - Final Radiography Diagnostic Testing: Radiology Impression Chest X-Ray 08/19/21 15:57 IMPRESSION: Normal x-ray examination of the chest. Electronically Signed: Mario Cramer DO at 16:17 EST , Abscess Drainage CT 08/20/21 08:30 IMPRESSION: Successful CT guided percutaneous cholecystostomy with placement of an 8 [place] catheter within the gallbladder lumen. The patient tolerated the procedure well. Conscious sedation protocol was followed. Electronically Signed: Jasson Plata MD at 10:15 EST , Physical Exam Const oriented x3 and no apparent distress Resp normal respiratory effort GI soft to palpation Palpation: tender RUQ Assessment & Plan Assessment/Plan (1) Acute cholecystitis: PLAN: The patient had chest pain before surgery yesterday and so surgery was canceled. Patient had cholecystostomy tube placed this morning to temporize him. He may start a clear liquid diet and advance as tolerated and be sent home on some oral antibiotics and follow-up with me for elective cholecystectomy in 2 to 3 weeks. That will allow for any work-up cardiology needs to do and to allow his gallbladder to cooldown. Cornelius Andrews MD Pager: [facility] [address] [place] [address], [address] [place] [address] Office:
[2021-08-20 12:31] LABS: Bedside Glucose 106 mg/dL (74-106)
--- NOTE | 2021-08-20 13:45 | PCM.PN.HOSP ---
Subjective Subjective Follow-up on acute cholecystitis: Patient was seen and examined. He was seen earlier on in complaining of pain in the abdomen post cholecystostomy tube placement today. He was medicated. Patient later on accidentally pulled out his cholecystostomy tube. No other acute events overnight. Objective Data Objective Data Vital Signs: Vital Signs Temp Pulse Resp BP Pulse Ox 98.3 F 60 18 184/71 H 96 08/20/21 12:00 08/20/21 12:10 08/20/21 12:00 08/20/21 12:10 08/20/21 12:00 Oxygen Flow Rate (L/min) 3 Oxygen Delivery Method Nasal Cannula Weight: 71 kg Body Mass Index (BMI) 23.7 Intake & Output: Intake and Output for Last 24 Hours 08/18/21 08/19/21 08/20/21 23:59 23:59 23:59 Intake Total 535 / 535 2236.88 / 2436.88 2086.67 / 2086.67 Output Total 875 / 1275 1075 / 1075 Balance 535 / 535 1361.88 / 1161.88 1011.67 / 1011.67 Lab / Micro Data Result Diagrams: 08/20/21 04:34 08/20/21 04:34 Labs: Laboratory Results - last 24 hr 08/19/21 14:47: Troponin I High Sens 13 08/19/21 16:07: POC Glucose 103 08/19/21 16:20: Troponin I High Sens 13 08/19/21 22:25: Troponin I High Sens 15 08/19/21 22:54: POC Glucose 113 H 08/20/21 04:34: PT 15.8 H, INR 1.3 08/20/21 04:34: WBC 6.3, RBC 3.72 L, Hgb 7.8 L, Hct 27.1 L, MCV 72.8 L, MCH 21.0 L, MCHC 28.8 L, RDW Std Deviation 50.8 H, RDW Coeff of Aly 19.5 H, Plt Count 409, MPV 9.7, Immature Gran % (Auto) 0.800, Neut % (Auto) 77.2 H, Lymph % (Auto) 12.2 L, [place] % (Auto) 6.8, Eos % (Auto) 2.2, Baso % (Auto) 0.8, Absolute Neuts (auto) 4.9, Absolute Lymphs (auto) 0.77 L, Nucleated RBC % 0 08/20/21 04:34: Sodium 139, Potassium 3.7, Chloride 107, Carbon Dioxide 27.0, Anion Gap 5, BUN 12, Creatinine 1.01, Estim Creat Clear Calc 63.96, Est GFR (MDRD) Af Amer 93, Est GFR (MDRD) Non-Af 77, BUN/Creatinine Ratio 11.9, Glucose 99, Calcium 7.9 L, Total Bilirubin 0.70, AST 150 H, ALT 335 H, Alkaline Phosphatase 224 H, Total Protein 6.2 L, Albumin 2.7 L, Globulin 3.5, Albumin/Globulin Ratio 0.8 L 08/20/21 06:16: POC Glucose 108 H 08/20/21 12:18: POC Glucose 106 Micro: Microbiology 08/18/21 20:40 Nasal Secretion SARS-CoV-2 Antigen (Rapid) - Final Radiography Diagnostic Testing: Radiology Impression Chest X-Ray 08/19/21 15:57 IMPRESSION: Normal x-ray examination of the chest. Electronically Signed: Mario Cramer DO at 16:17 EST , Abscess Drainage CT 08/20/21 08:30 IMPRESSION: Successful CT guided percutaneous cholecystostomy with placement of an 8 Bengali catheter within the gallbladder lumen. The patient tolerated the procedure well. Conscious sedation protocol was followed. Electronically Signed: Jasson Plata MD at 10:15 EST , Physical Exam Narrative Physical exam: General: Alert, Oriented x3, Cooperative, No apparent distress, Well developed HEENT: Atraumatic Oral: Moist Mucosa Neck: Supple Lungs: Left lower chest wall/left upper quadrant pain, reproducible clear to auscultation Cardiovascular: HS I+II, regular, no murmurs Abdomen: Bowel Sounds Present, Soft, Non Tender Extremities: No edema Assessment & Plan Assessment/Plan (1) Transaminitis: (2) Acute cholecystitis: PLAN: 1. Acute cholecystitis, status post cholecystostomy tube placement Continue on IV Zosyn, repeat blood work in a.m. 2. Hypertension, controlled, continue on amlodipine, losartan, metoprolol 3. Lupus anticoagulant with possible history of a DVT, patient is a poor historian INR is currently 1.6, status post 2 units of FFP Patient going for IR cholecystostomy tube placement Continue to hold Coumadin 4. Seizure disorder, continue carbamazepine 5. Nicotine dependence, on replacement, advised to quit 6. Rest of his chronic medical conditions including COPD with chronic hypoxic respiratory failure on 2 L of oxygen, GERD, remained stable 7. DVT PPx- SCDs pending resumption of coumadin Charges/Coding Visit Charges Inpatient E&M: 86983 Subs Hosp L2
--- NOTE | 2021-08-20 15:45 | CASEMGMT ---
SW received a message from Katherine Shi, patient's [employer] with [facility]. Patient gets 14 meals a week. 7 meals from [employer] and 7 from [employer]. He has a medical alert button, and he has a nurse from [facility] to fill his medication box. Her number is [phone]. Mago TOWNSEND
--- NOTE | 2021-08-20 15:51 | CASEMGMT ---
Per Alfonzo ARMSTRONG, pt has SN thru [facility]. Call to [facility] and pt is not active with them. Message left with [facility] regarding pt. CM to follow. Earl AHUJA CM
--- NOTE | 2021-08-20 16:01 | CASEMGMT ---
According to the [facility] website, [facility] following are in-network tertiary facilities: [facility], [place], [facility], [place], [facility], [facility], [facility], [facility], and . Earl AHUJA CM
[2021-08-20] MEDS: 0.9% Saline Lock 10 ML Syringe IV (16:31)
[2021-08-20 17:21] LABS: Bedside Glucose 112 mg/dL (74-106)
[2021-08-20] MEDS: 0.9% Normal Saline 1,000 ML 75 ML IV (18:46)
[2021-08-20] MEDS: Ondansetron 4 MG/2 ML Vial IV (19:53)
[2021-08-20] MEDS: Atorvastatin Calcium 40 MG Tablet PO (22:19)
[2021-08-20] MEDS: Mirtazapine 15 MG Tablet PO (22:21)
[2021-08-20] MEDS: Tamsulosin HCl 0.4 MG Capsule PO (22:21)
[2021-08-20 22:31] LABS: Bedside Glucose 127 mg/dL (74-106)
[2021-08-21] VITALS (7 sets, daily range): BP systolic 183; BP diastolic 69; PULSE 45–61; RESP 18; TEMP 36.4; O2SAT 95–98
--- NOTE | 2021-08-21 05:21 | NURSING ---
report called to [facility] nurse alex for transfer.
[2021-08-21] MEDS: 0.9% Normal Saline 1,000 ML 75 ML IV (06:08)
[2021-08-21 06:16] LABS: Bedside Glucose 102 mg/dL (74-106)
--- NOTE | 2021-08-21 06:38 | NURSING ---
Call daughter and left a voicemail to call back, also call ex- but mailbox was full so no message left.
--- NOTE | 2021-08-21 07:21 | PCM.PN.SRG ---
Subjective Subjective patient pulled out his cholecystotomy tube last evening no IR coverage awaiting transfer to another facility with IR coverage for placement of cholecystotomy tube Objective Data Objective Data Vital Signs: Vital Signs Temp Pulse Resp BP Pulse Ox 97.6 F L 58 L 18 183/69 H 98 08/21/21 04:12 08/21/21 05:59 08/21/21 04:12 08/21/21 04:12 08/21/21 04:12 Oxygen Flow Rate (L/min) 3 Oxygen Delivery Method Nasal Cannula Weight: 71 kg Body Mass Index (BMI) 23.7 Intake & Output: Intake and Output for Last 24 Hours 08/19/21 08/20/21 08/21/21 23:59 23:59 23:59 Intake Total 2236.88 / 2436.88 2440.00 / 2440.00 902.75 / 902.75 Output Total 875 / 1275 1510 / 1710 460 / 460 Balance 1361.88 / 1161.88 930.00 / 730.00 442.75 / 442.75 Lab / Micro Data Result Diagrams: 08/20/21 04:34 08/20/21 04:34 Labs: Laboratory Results - last 24 hr 08/20/21 12:18: POC Glucose 106 08/20/21 16:36: POC Glucose 112 H 08/20/21 22:09: POC Glucose 127 H 08/21/21 06:06: POC Glucose 102 Micro: Microbiology 08/18/21 20:40 Nasal Secretion SARS-CoV-2 Antigen (Rapid) - Final Radiography Diagnostic Testing: Radiology Impression Echocardiogram 08/19/21 19:55 Interpretation Summary Normal LV size. Left ventricular systolic function is normal. The estimated ejection fraction is 65 %. Stage 1 diastolic dysfunction. Mild (1+) eccentric mitral valve insufficiency. Ordering Physician: Brendan Vallejo Referring Physician: Daija Douglas Performed By: Cristina Jacobo, RDCS, RVT Abscess Drainage CT 08/20/21 08:30 IMPRESSION: Successful CT guided percutaneous cholecystostomy with placement of an 8 Mozamb[place] catheter within the gallbladder lumen. The patient tolerated the procedure well. Conscious sedation protocol was followed. Electronically Signed: Jasson Plata MD at 10:15 EST , Physical Exam Resp normal respiratory effort GI GI Narrative: unchanged Assessment & Plan Assessment/Plan (1) Abdominal pain: PLAN: awaiting transfer
[2021-08-21 07:32] LABS: International Normalized Ratio 1.2; Prothrombin Time (Protime)PT. 14.9 SECONDS (11.7-14.9)
[2021-08-21] MEDS: Ipratropium/Albuterol Sulfate 3 ML AMPUL.NEB INHALATION (07:33)
[2021-08-21] MEDS: Morphine 2 MG/ML Syringe IV (07:52)
[2021-08-21] MEDS: Pantoprazole Sodium 40 MG Tablet PO (07:56)
[2021-08-21] MEDS: Losartan Potassium 100 MG Tablet PO (07:56)
[2021-08-21] MEDS: amLODIPine 10 MG Tablet PO (07:56)
[2021-08-21] MEDS: Finasteride 5 MG Tablet PO (07:57)
[2021-08-21] MEDS: Metoprolol Tartrate 25 MG Tablet PO (07:57)
[2021-08-21] MEDS: Aspirin 81 MG TAB.CHEW PO (07:57)
[2021-08-21] MEDS: carBAMazepine 200 MG Tablet PO (07:58)
--- NOTE | 2021-08-21 09:07 | DS.PCM_ITS ---
Providers Date of Admission: 08/18/21 Date of Discharge: 08/21/21 Primary Care Physician: Dr. Daija Douglas MD Consultations 08/19/21 14:37 Consult: Cardiology Routine Consulting Provider: Brendan Vallejo Reason for Consult: pre-op management, chest pain EMERGENT Consult: No MD Notified: Yes Date Notified: 08/19/21 Time Notified: 14:50 Method of Notification: Text Reason For Visit: CHOLECYSTITIS Diagnosis Discharge Diagnosis (1) Abdominal pain: Status: Acute Code(s): R10.9 - Unspecified abdominal pain Medications at Discharge Home Medications gabapentin 300 mg PO DAILY 01/26/14 tamsulosin 0.4 mg PO QHS 01/26/14 finasteride 5 mg PO DAILY 11/14/14 atorvastatin 40 mg PO QHS 09/23/15 metoprolol tartrate 50 mg PO BID 12/02/15 sertraline 100 mg PO DAILY 12/02/15 mirtazapine 15 mg PO QHS 08/16/19 amlodipine 5 mg PO DAILY 10/25/19 clopidogrel 75 mg PO DAILY 10/25/19 carbamazepine 200 mg PO Q12H 10/26/19 warfarin 10 mg PO DAILY 02/25/20 aspirin 81 mg PO DAILY@0800 08/08/20 albuterol sulfate 2.5 mg INHALATION Q4H PRN PRN vial.neb. 08/12/20 dicyclomine 20 mg PO TID 08/19/21 ipratropium-albuterol 3 ml INHALATION Q6HWA.RT 08/19/21 losartan 100 mg PO DAILY 08/19/21 pantoprazole 40 mg PO DAILY 08/19/21 Hospital Course Operations None Procedures 2-D Echocardiogram and - (cholecystostomy tube on 08/20/21) Summary of Care Provided Minutes Spent on Discharge: 35 Hospital Course: 71-year-old with multiple comorbidities who presents with persistent right upper quadrant pain. Patient was found to have acute cholecystitis. Ultrasound gallbladder shows sludge and small stones. He was on Coumadin for atrial fibrillation. He received FFP's to reverse his INR. Patient was going to get cholecystectomy on through. He started to complain of chest discomfort in PACU. EKG was unremarkable. Troponins were negative. Patient has history of CAD. Cardiology was consulted. Patient went for cholecystostomy tube placement on 08/20/21 by IR. Postoperatively, patient accidentally pulled out his cholecystostomy tube. IR had unfortunately left for the day and will not be back until Monday. It was recommended the patient be discharged to tertiary center for IR cholecystostomy tube placement. Patient was accepted by the [facility]. Overnight, there were no acute events. He continues to have some right upper quadrant pain. He was on IV Zosyn. Physical Exam Narrative Physical exam: General: Alert, Oriented x3, Cooperative, No apparent distress, Well developed HEENT: Atraumatic Oral: Moist Mucosa Neck: Supple Lungs: Left lower chest wall/left upper quadrant pain, reproducible clear to auscultation Cardiovascular: HS I+II, regular, no murmurs Abdomen: Bowel Sounds Present, Soft, Non Tender Extremities: No edema Weight / BMI Weight Weight: 71 kg Body Mass Index (BMI) 23.7 ABG / Lab / Microbiology Data Result Diagrams: 08/20/21 04:34 08/20/21 04:34 Laboratory: Laboratory Results - last 24 hr 08/20/21 12:18: POC Glucose 106 08/20/21 16:36: POC Glucose 112 H 08/20/21 22:09: POC Glucose 127 H 08/21/21 06:06: POC Glucose 102 08/21/21 06:42: PT 14.9, INR 1.2 Microbiology: Microbiology 08/18/21 20:40 Nasal Secretion SARS-CoV-2 Antigen (Rapid) - Final Radiography Diagnostic Testing: Radiology Impression Echocardiogram 08/19/21 19:55 Interpretation Summary Normal LV size. Left ventricular systolic function is normal. The estimated ejection fraction is 65 %. Stage 1 diastolic dysfunction. Mild (1+) eccentric mitral valve insufficiency. Ordering Physician: Brendan Vallejo Referring Physician: Daija Douglas Performed By: Cristina Jacobo, RDCS, RVT Abscess Drainage CT 08/20/21 08:30 IMPRESSION: Successful CT guided percutaneous cholecystostomy with placement of an 8 Cameroonian catheter within the gallbladder lumen. The patient tolerated the procedure well. Conscious sedation protocol was followed. Electronically Signed: Jasson Plata MD at 10:15 EST , D/C Instructions Discharge Diet: No restrictions Meaningful Use Info Meaningful Use Diagnoses (Choose all that apply): None applicable Discharge Plan Admission Admit Date/Time: 08/18/21 21:54 Primary Reason for Your Visit: Acute cholecystitis Attending Provider: Joi Osuna Primary Care Provider: Daija Douglas Consulting Providers: Brendan Vallejo Discharge Orders/Prescriptions Prescriptions: No Action tamsulosin 0.4 MG capsule 0.4 mg PO QHS RF: 0 gabapentin 300 MG capsule 300 mg PO DAILY RF: 0 finasteride 5 MG tablet 5 mg PO DAILY RF: 0 atorvastatin 40 MG tablet 40 mg PO QHS RF: 0 sertraline 50 MG tablet 100 mg PO DAILY RF: 0 metoprolol tartrate 25 MG tablet 50 mg PO BID RF: 0 mirtazapine 15 MG tablet 15 mg PO QHS RF: 0 clopidogrel 75 MG tablet 75 mg PO DAILY RF: 0 amlodipine 5 MG tablet 5 mg PO DAILY RF: 0 carbamazepine 200 MG tablet 200 mg PO Q12H RF: 0 warfarin 7.5 MG tablet 10 mg PO DAILY RF: 0 aspirin 81 MG tablet,chewable 81 mg PO DAILY@0800 RF: 0 albuterol sulfate 2.5 MG/3 ML solution for nebulization 2.5 mg INHALATION Q4H PRN PRN (Reason: sob/wheezing) RF: 0 dicyclomine 20 mg tablet 20 mg PO TID RF: 0 losartan 100 mg tablet 100 mg PO DAILY RF: 0 pantoprazole 40 mg tablet,delayed release (DR/EC) 40 mg PO DAILY RF: 0 ipratropium-albuterol 3 ML solution for nebulization 3 ml INHALATION Q6HWA.RT RF: 0 Referrals / Follow Up: Daija Douglas MD [Primary Care Provider] - Disposition Disposition (needs filled in before D/C Order can be placed): [facility] Charges/Coding Visit Charges Inpatient E&M: 04308 Disch Hosp
--- NOTE | 2021-08-23 09:14 | CASEMGMT ---
This SEYMOUR BOLES received call back from [facility] stating pt is active with SN for one day/week for med management. Bon Wier is aware that pt was transferred to [facility] on 08/21/21, voices understanding. Earl AHUJA CM
--- NOTE | 2021-08-23 09:18 | CASEMGMT ---
NATHANIEL called Liseth with [facility] and left her a voice mail letting her know patient was transferred to [facility] [place]. NATHANIEL also called Katherine Shi, Digester Cook with [facility] and left her a voice mail letting her know patient was transferred to [facility] [place]. Mago TOWNSEND
== END 2021-08-21 09:50 | disposition short-term general hospital (02) | DRG 445 ==
LOC: ED 22:08 → PCU 22:15
PROVIDERS: Anesthesiology; Surgery; Admitting Provider Family Medicine; Emergency Provider Emergency Medicine; PCP Internal Medicine; Visit Provider Internal Medicine
PROC: 30233K1 Transfusion of Nonautologous Frozen Plasma into Peripheral Vein, Percutaneous Approach (ICD-10-PCS; CPT 47610; principal; 2021-08-19 13:45)
DX: K80.62 Calculus of gallbladder and bile duct with acute cholecystitis without obstruction (principal); J96.11 Chronic respiratory failure with hypoxia; E11.51 Type 2 diabetes mellitus with diabetic peripheral angiopathy without gangrene; I48.0 Paroxysmal atrial fibrillation; G40.909 Epilepsy, unspecified, not intractable, without status epilepticus; E78.5 Hyperlipidemia, unspecified; G47.30 Sleep apnea, unspecified; J44.9 Chronic obstructive pulmonary disease, unspecified; I10 Essential (primary) hypertension; K21.9 Gastro-esophageal reflux disease without esophagitis; I25.10 Atherosclerotic heart disease of native coronary artery without angina pectoris; G89.29 Other chronic pain; R74.01 Elevation of levels of liver transaminase levels; N28.1 Cyst of kidney, acquired; Z87.891 Personal history of nicotine dependence; Z79.82 Long term (current) use of aspirin; Z79.02 Long term (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 of antithrombotics/antiplatelets; Z79.01 Long term (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 of anticoagulants; Z79.899 Other long term (current) drug therapy; Z99.81 Dependence on supplemental oxygen; R76.0 Raised antibody titer; R07.89 Other chest pain; Z53.09 Procedure and treatment not carried out because of other contraindication
CPT/HCPCS: 36415; 71045; 75989; 76705; 80048; 80053; 80076; 82962; 83036; 83690; 84484; 85025; 85610; 85730; 86850; 86900; 86901; 87426; 93005; 93306; 94640; 97162; 97166; 99156; 99285; 99406; J7030; J7040; J7050; P9017; A4216; J2405

== ENCOUNTER 2021-09-17 16:55 | Emergency (ER) | payer MEDICARE, MEDICAID, SELFPAY ==
[2021-09-17 16:56] VITALS: BP 220/84; PULSE 85; RESP 16; TEMP 36; O2SAT 97; BMI 23.7
--- NOTE | 2021-09-17 17:20 | US_ITS ---
INDICATION: PAIN-abd EXAMINATION: US Abdomen RUQ (limited) TECHNIQUE: Baires-scale and color Doppler imaging was performed of the right upper abdominal quadrant. COMPARISON: 08/18/2021. Findings: The liver is homogenous and normal in echogenicity and echotexture. There is no evidence of contour nodularity. No focal hepatic mass is identified. The main portal vein is normal in size and patent demonstrating hepatopetal flow. The gallbladder is contracted with mild diffuse wall thickening consistent with the post prandial state, limiting evaluation for stones, although none are seen. There is no pericholecystic fluid. Sonographic Pacheco''s tenderness is not appreciated. There is no evidence of intrahepatic biliary ductal dilatation. The CBD is nondilated measuring 4 mm at the level of the sal hepatis. The visualized portions of the pancreas are unremarkable without evidence of focal or diffuse enlargement. Specifically, the tail is obscured by overlying bowel gas. Right kidney measures 10.7 cm in length. It is normal in echogenicity. No focal renal lesion is identified. There is no evidence of hydronephrosis. US/Gallbladder IMPRESSION: Postprandial contracted gallbladder with multiple septations. No evidence of stones. Electronically Signed: Kenan Kaba MD at 19:33 EDT ,
--- NOTE | 2021-09-17 17:24 | ED.VIS.GI ---
HPI HPI - GI History of Present Illness Chief Complaint: Abd Pain Narrative Narrative: 71-year-old male presents with right upper quadrant pain that has had for weeks. He relates history that he was seen in the emergency department and was in the OR, but felt that the surgeon did not finish his job. He states he had a water balloon in his side that he pulled out, then was sent to the [facility] for continued care at the main campus. He states he was discharged from there around the 11th of last month, approximately 2 weeks ago, and was told that if he has pain in his gallbladder area again that he needs to go back to the [facility]. He states has been nauseated but denies any fevers or chills. He has had exquisite pain in his right upper quadrant. No exacerbating or alleviating factors that he can name. His history and physical is limited secondary to his age, and he repeatedly says I do not remember. PFSH [facility] Medical History Asthma Atrial fibrillation Chronic pain COPD (chronic obstructive pulmonary disease) Depression Diabetes Falls frequently High cholesterol Hypertension Irregular heart beat Kidney stones On home oxygen therapy Pancreatitis Seizures Sleep apnea Smoker Stroke/cerebrovascular accident Home Medications gabapentin 300 mg PO DAILY 01/26/14 [History Last Taken 03/26/20] tamsulosin 0.4 mg PO QHS 01/26/14 [History Last Taken 10/25/19 08:33] finasteride 5 mg PO DAILY 11/14/14 [History Last Taken 10/25/19 08:35] atorvastatin 40 mg PO QHS 09/23/15 [History Last Taken 03/25/20] metoprolol tartrate 50 mg PO BID 12/02/15 [History Last Taken 03/26/20] sertraline 100 mg PO DAILY 12/02/15 [History Last Taken 10/25/19 08:35] mirtazapine 15 mg PO QHS 08/16/19 [History Last Taken 10/25/19 20:18] amlodipine 5 mg PO DAILY 10/25/19 [History Last Taken 03/26/20] clopidogrel 75 mg PO DAILY 10/25/19 [History Last Taken 03/26/20] carbamazepine 200 mg PO Q12H 10/26/19 [History Last Taken 10/25/19 20:18] warfarin 10 mg PO DAILY 02/25/20 [History Last Taken Unknown] aspirin 81 mg PO DAILY@0800 08/08/20 [History Last Taken Unknown] albuterol sulfate 2.5 mg INHALATION Q4H PRN PRN vial.neb. 08/12/20 [Rx Last Taken Unknown] dicyclomine 20 mg PO TID 08/19/21 [History Last Taken Unknown] ipratropium-albuterol 3 ml INHALATION Q6HWA.RT 08/19/21 [History Last Taken Unknown] losartan 100 mg PO DAILY 08/19/21 [History Last Taken Unknown] pantoprazole 40 mg PO DAILY 08/19/21 [History Last Taken Unknown] Allergy/AdvReac Type Severity Reaction Status Date / Time No Known Allergies Allergy Verified 08/18/21 19:04 Surgical History History of appendectomy Social History Smoking Status: Current every day smoker tobacco type: cigarettes ROS ROS ED ROS Narrative Constitutional: No fever, no chills. HEENT: No sore throat. No neck pain. No loss of vision. No rhinorrhea. Cardiovascular: No chest pain. No palpitations. No pedal edema. Respiratory: No cough, no shortness of breath. Abdominal: Right upper quadrant abdominal pain. Positive nausea. No vomiting. Decreased p.o. intake and decreased appetite. Genitourinary: No dysuria. No hematuria. Musculoskeletal: No myalgias. No arthralgias. Neurologic: No headaches. No dizziness. No lightheadedness. Skin: No rash. No change in color. Psychiatric: No depression. No anxiety. EXAM Physical Exam Narrative Exam Narrative: Afebrile. Vital signs noted. HEENT: Normocephalic. Atraumatic. PERRL, EOMI. Neck soft and supple. No point tenderness or step off. Cardiovascular: Regular rate and rhythm. No murmurs, rubs, or gallops appreciated. Respiratory: No tachypnea. Lungs clear to auscultation bilaterally. Gastrointestinal: Abdomen soft, tenderness in right upper quadrant. With normoactive bowel sounds. No rebound or guarding. Neurological: Awake. Alert. Nonfocal, nonlateralizing. Skin: No rash. Normal color. No pallor. Musculoskeletal: No pedal edema. Full range of motion extremities. Const Vital Signs: 09/17/21 16:56 09/17/21 19:06 09/17/21 20:16 Temperature 96.8 F L 97.3 F L Temperature Source Temporal Oral Pulse Rate 85 76 85 Respiratory Rate 16 16 17 Blood Pressure 220/84 H 204/76 H 171/80 H Blood Pressure Mean 129 118 110 Pulse Ox 97 98 96 Oxygen Delivery Method Room Air Room Air Room Air MDM MDM MDM Narrative Medical decision making narrative: I reviewed his prior records. He had been admitted by medicine as he takes Coumadin and multiple other medications. He had been seen by Dr. Andrews. Patient underwent CT-guided cholecystostomy and apparently had a drain placed. They thought ERCP was the better option given that he did not have any dilation of his bile ducts. He did note sludge and gallstones. Patient will be administered morphine and we will obtain an ultrasound along with basic laboratory work including CMP, CBC, and lipase. Patient was administered morphine for analgesia. He has normal white count of 7.1, hemoglobin low at 7.9, but stable, this appears to be around his baseline. Platelet count normal at 342. INR subtherapeutic at 1.3. His electrolyte panel is grossly unremarkable, AST and ALT are normal. Alk phos is also normal at 79. While his urine may be positive for nitrites, there are 0-5 WBCs and he is not having dysuria. I do not feel that antibiotics are required. His ultrasound of his gallbladder shows the gallbladder to be contracted postprandially. There is no thickened gallbladder wall and the common bile duct is normal at 4 mm. I did discuss the patient with Dr. Andrews. What had happened/transpired when he needed emergent cholecystectomy is at patient had stated that he had chest pain. He was sent to the [facility] for presurgical testing. Patient states that they discharged him without taking out his gallbladder, and told him to return to the [facility] if he had more problems with his gallbladder, but they were going to remove it at a later date after presurgical testing. At this point in time, I do feel that the patient can be discharged safely home to get his presurgical testing for elective cholecystectomy by the [facility]. He does not have any evidence of cholecystitis now. His abdomen remains soft and he states he feels improved. He will follow up with his primary care physician and with the [facility] surgeons. Disposition is discharged home in stable condition. Lab Data Attestation: I reviewed the patient's lab results. Labs: Laboratory Results - last 24 hr 09/17/21 09/17/21 09/17/21 17:55 17:55 17:55 WBC 7.1 RBC 3.50 L Hgb 7.9 L Hct 26.3 L MCV 75.1 L MCH 22.6 L MCHC 30.0 L RDW Std Deviation 53.1 H RDW Coeff of Aly 19.6 H Plt Count 342 MPV 9.5 Immature Gran % (Auto) 0.300 Neut % (Auto) 73.0 H Lymph % (Auto) 16.9 L Walsh % (Auto) 7.1 Eos % (Auto) 1.1 Baso % (Auto) 1.6 H Absolute Neuts (auto) 5.2 Absolute Lymphs (auto) 1.19 Nucleated RBC % 0 PT 15.4 H INR 1.3 Sodium 136 Potassium 4.2 Chloride 104 Carbon Dioxide 25.0 Anion Gap 7 BUN 14 Creatinine 1.12 Estim Creat Clear Calc 57.68 Est GFR (MDRD) Af Amer 83 Est GFR (MDRD) Non-Af 68 BUN/Creatinine Ratio 12.5 Glucose 100 Calcium 8.7 Total Bilirubin 0.30 AST 19 ALT 36 Alkaline Phosphatase 79 Total Protein 7.3 Albumin 3.8 Globulin 3.5 Albumin/Globulin Ratio 1.1 Lipase 102 Urine Color Urine Clarity Urine pH Ur Specific Benton Urine Protein Urine Glucose (UA) Urine Ketones Urine Occult Blood Urine Nitrite Urine Bilirubin Urine Urobilinogen Ur Leukocyte Esterase Urine RBC Urine WBC Ur Squamous Epith Cells Urine Bacteria Urine Mucus 09/17/21 18:17 WBC RBC Hgb Hct MCV MCH MCHC RDW Std Deviation RDW Coeff of Aly Plt Count MPV Immature Gran % (Auto) Neut % (Auto) Lymph % (Auto) Walsh % (Auto) Eos % (Auto) Baso % (Auto) Absolute Neuts (auto) Absolute Lymphs (auto) Nucleated RBC % PT INR Sodium Potassium Chloride Carbon Dioxide Anion Gap BUN Creatinine Estim Creat Clear Calc Est GFR (MDRD) Af Amer Est GFR (MDRD) Non-Af BUN/Creatinine Ratio Glucose Calcium Total Bilirubin AST ALT Alkaline Phosphatase Total Protein Albumin Globulin Albumin/Globulin Ratio Lipase Urine Color Yellow Urine Clarity Clear Urine pH 6.0 Ur Specific Benton 1.010 Urine Protein 15 H Urine Glucose (UA) Normal Urine Ketones Negative Urine Occult Blood Negative Urine Nitrite Positive H Urine Bilirubin Negative Urine Urobilinogen Normal Ur Leukocyte Esterase 25 H Urine RBC 0 SEEN Urine WBC 0-5 SEEN Ur Squamous Epith Cells 0-5 SEEN Urine Bacteria 1+ Urine Mucus 0 SEEN Radiography Diagnostic Testing: Clinical Impression(s) from Imaging Studies Gallbladder Ultrasound 09/17/21 17:20 IMPRESSION: Postprandial contracted gallbladder with multiple septations. No evidence of stones. Electronically Signed: Kenan Kaba MD at 19:33 EDT , Discharge Plan Triage Chief Complaint: Abd Pain ED Provider: Gato Mayer Dx/Rx/DC Orders Clinical Impression: Biliary colic, Abdominal pain, right upper quadrant Instructions: ED Abdominal Pain Unkn Cause Male... Prescriptions: No Action tamsulosin 0.4 MG capsule 0.4 mg PO QHS RF: 0 gabapentin 300 MG capsule 300 mg PO DAILY RF: 0 finasteride 5 MG tablet 5 mg PO DAILY RF: 0 atorvastatin 40 MG tablet 40 mg PO QHS RF: 0 sertraline 50 MG tablet 100 mg PO DAILY RF: 0 metoprolol tartrate 25 MG tablet 50 mg PO BID RF: 0 mirtazapine 15 MG tablet 15 mg PO QHS RF: 0 clopidogrel 75 MG tablet 75 mg PO DAILY RF: 0 amlodipine 5 MG tablet 5 mg PO DAILY RF: 0 carbamazepine 200 MG tablet 200 mg PO Q12H RF: 0 warfarin 7.5 MG tablet 10 mg PO DAILY RF: 0 aspirin 81 MG tablet,chewable 81 mg PO DAILY@0800 RF: 0 albuterol sulfate 2.5 MG/3 ML solution for nebulization 2.5 mg INHALATION Q4H PRN PRN (Reason: sob/wheezing) RF: 0 dicyclomine 20 mg tablet 20 mg PO TID RF: 0 losartan 100 mg tablet 100 mg PO DAILY RF: 0 pantoprazole 40 mg tablet,delayed release (DR/EC) 40 mg PO DAILY RF: 0 ipratropium-albuterol 3 ML solution for nebulization 3 ml INHALATION Q6HWA.RT RF: 0 Primary Care Provider: Daija Douglas Referrals: Daija Douglas MD [Primary Care Provider] - 3-5 Days if not improving (Get your outpatient presurgical testing through your primary care provider) Activity Restrictions/Additional Instructions: Any presurgical testing needs to be performed as an outpatient through your primary care physician, or at the [facility] where your surgeon will be. Disposition Disposition: Home, Self Care
[2021-09-17] MEDS: 0.9% Normal Saline 1,000 ML 125 ML IV (18:01)
[2021-09-17 18:10] LABS: Absolute Lymphocyte Count 1.19 X10^3/uL (0.83-4.51); Absolute Neutrophil Count 5.2 X10^3/uL (2.0-7.7); Basophil# 0.11 X10^3/uL; Basophil% 1.6 % (0-1); Eosinophil# 0.08 X10^3/uL; Eosinophils% 1.1 % (0-5); Hematocrit 26.3 % (40-54); Hemoglobin 7.9 g/dL (13.0-16.5); Lymphocyte # 1.19 X10^3/ul (0.83-4.51); Lymphocyte % 16.9 % (19-41); Mean Corpuscular Hgb 22.6 pg (27.0-32.0); Mean Corpuscular Volume 75.1 fL (80-94); Mean Platelet Vol. 9.5 fl (6.2-12.0); Monocyte% 7.1 % (0-10); NRBC Flagged by Analyzer 0 % (0-5); Neutrophil # 5.15 X10^3/uL (2.7-7.7); Platelet Count 342 K/mm3 (150-450); RBC Distribution Width CV 19.6 % (11.6-14.6); RBC Distribution Width SD 53.1 fl (35.1-43.9); White Blood Count 7.1 K/mm3 (4.4-11.0)
[2021-09-17 18:17] LABS: International Normalized Ratio 1.3; Prothrombin Time (Protime)PT. 15.4 SECONDS (11.7-14.9)
[2021-09-17 18:26] LABS: ALB/GLOB Ratio 1.1 RATIO (0.9-2.4); AST(SGOT) 19 U/L (15-37); Alanine Aminotransfer ALT/SGPT 36 U/L (16-61); Albumin, Serum 3.8 g/dL (3.2-5.0); Alkaline Phosphatase 79 U/L (45-117); Anion Gap 7 (5-15); BUN 14 mg/dL (7-18); BUN/Creat Ratio 12.5 RATIO (10-20); Calcium,Total 8.7 mg/dL (8.5-10.1); Chloride 104 mmol/L (98-107); Creatinine, Serum 1.12 mg/dL (0.70-1.30); EST Glomerular Filtration Rate 68 mL/min (>60); Est Glom Filt Rate - Afr Amer 83 mL/min (>60); Estimated Creatinine Clearance 57.68 ml/min; Globulin 3.5 g/dL (2.2-4.2); Glucose 100 mg/dL (74-106); Lipase 102 U/L (73-393); Potassium 4.2 mmol/L (3.5-5.1); Protein, Total 7.3 g/dL (6.4-8.2); Sodium Level 136 mmol/L (136-145)
[2021-09-17 18:26] LABS: Mucous, Urine 0 SEEN /hpf (<or=2+); Red Blood Cells-Urine 0 SEEN /hpf (0-5)
[2021-09-17 18:40] LABS: Color, Urine Yellow (Yellow); Glucose, Dipstick Normal (Normal); Ketone-Dipstick Negative (Negative); Leukocyte Esterase-Dipstick 25 /ul (Negative); Nitrite-Dipstick Positive (Negative); Occult Blood-Urine Negative /ul (Negative); Protein-Dipstick 15 mg/dl (Negative); Urine Bilirubin Dipstick Negative (Negative); Urine Clarity Clear (Clear); Urine Urobilinogen Normal (Normal)
[2021-09-17 18:48] LABS: Squamous Epithelial Cells - UA 0-5 SEEN /hpf (0-5)
[2021-09-17 18:49] LABS: Bacteria 1+ /hpf (None Seen); White Blood Cells 0-5 SEEN /hpf (0-5)
[2021-09-17] MEDS: Morphine 4 MG/ML Syringe IV (19:03)
[2021-09-17 19:06] VITALS: BP 204/76; PULSE 76; RESP 16; O2SAT 98
[2021-09-17] MEDS: hydrALAZINE 20 MG/ML Vial 10 MG IV (19:30)
[2021-09-17 20:16] VITALS: BP 171/80; PULSE 85; RESP 17; TEMP 36.3; O2SAT 96
== END 2021-09-17 20:45 | disposition home or self-care (01) ==
PROVIDERS: Emergency Provider Emergency Medicine; PCP Internal Medicine; Visit Provider Emergency Medicine
DX: K80.70 Calculus of gallbladder and bile duct without cholecystitis without obstruction (principal); J44.9 Chronic obstructive pulmonary disease, unspecified; I48.91 Unspecified atrial fibrillation; R56.9 Unspecified convulsions; E11.9 Type 2 diabetes mellitus without complications; I10 Essential (primary) hypertension; E78.00 Pure hypercholesterolemia, unspecified; J45.909 Unspecified asthma, uncomplicated; G89.4 Chronic pain syndrome; F17.210 Nicotine dependence, cigarettes, uncomplicated; Z79.01 Long term (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 of anticoagulants; Z79.899 Other long term (current) drug therapy; Z79.82 Long term (current) use of aspirin; Z86.73 Personal history of transient ischemic attack (TIA), and cerebral infarction without residual deficits; Z99.81 Dependence on supplemental oxygen
CPT/HCPCS: 76705; 80053; 81001; 83690; 85025; 85610; 96374; 96375; 99283; J7030; A4216

== ENCOUNTER 2021-09-22 09:46 | Outpatient (RCR) | payer MEDICARE, MEDICAID, SELFPAY ==
[2021-09-22 09:57] LABS: Absolute Lymphocyte Count 1.51 X10^3/uL (0.83-4.51); Absolute Neutrophil Count 3.7 X10^3/uL (2.0-7.7); Basophil# 0.13 X10^3/uL; Basophil% 2.1 % (0-1); Eosinophil# 0.31 X10^3/uL; Eosinophils% 5.1 % (0-5); Hematocrit 31.7 % (40-54); Hemoglobin 9.1 g/dL (13.0-16.5); Lymphocyte # 1.51 X10^3/ul (0.83-4.51); Lymphocyte % 24.8 % (19-41); Mean Corp Hgb Conc 28.7 g/dL (32-36); Mean Corpuscular Hgb 22.2 pg (27.0-32.0); Mean Corpuscular Volume 77.5 fL (80-94); Mean Platelet Vol. 9.9 fl (6.2-12.0); Monocyte# 0.42 X10^3/uL; Monocyte% 6.9 % (0-10); NRBC Flagged by Analyzer 0 % (0-5); Neutrophil # 3.69 X10^3/uL (2.7-7.7); Neutrophil % 60.6 % (47-70); Platelet Count 351 K/mm3 (150-450); RBC Distribution Width CV 19.9 % (11.6-14.6); RBC Distribution Width SD 56.2 fl (35.1-43.9); Red Blood Count 4.09 M/mm3 (4.6-6.2); White Blood Count 6.1 K/mm3 (4.4-11.0)
== END 2021-09-22 18:00 | disposition home or self-care (01) ==
LOC: HHLAB 09:46
PROVIDERS: PCP Internal Medicine; Visit Provider Internal Medicine
DX: K85.90 Acute pancreatitis without necrosis or infection, unspecified (principal); K81.9 Cholecystitis, unspecified; E11.51 Type 2 diabetes mellitus with diabetic peripheral angiopathy without gangrene
CPT/HCPCS: 85025

== ENCOUNTER 2021-10-08 14:11 | Emergency (ER) | payer MEDICARE, MEDICAID, SELFPAY ==
[2021-10-08 14:12] VITALS: BP 209/96; PULSE 74; RESP 16; TEMP 36.7; O2SAT 95; BMI 24.7
--- NOTE | 2021-10-08 14:46 | CT_ITS ---
STUDY: CT ABDOMEN AND PELVIS WITH CONTRAST REASON FOR EXAM: Male, 71 years old. lower abd pain RADIATION DOSAGE (If Supplied By Facility): CTDIvol = ( 10.70 ) mGy, DLP = ( 539.24 ) mGycm TECHNIQUE: Transaxial images were obtained from the dome of the diaphragm to the symphysis pubis without oral contrast. IV 100mL Isovue-300 was administered. Sagittal and coronal images were reconstructed. Individualized dose optimization techniques were used for this CT. COMPARISON: CT of abdomen and pelvis dated February 06, 2016 FINDINGS: The visualized lung bases are unremarkable. The visualized portions of the heart are within normal limits. Small cyst in the medial and posterior aspect of the right lobe of the liver unchanged. Normal remaining aspects of the liver. The gallbladder is contracted. Normal spleen. Normal pancreas. Stable 3.78 x 2.96 cm moderate size but benign left adrenal myelolipoma, which is been present since February 06, 2016. Normal right adrenal gland. There is mild cortical atrophy of the right kidney, consistent with chronic medical renal disease. Moderate to severe atrophy of the left kidney. Moderate to significant atherosclerotic calcifications of the renal arteries. Small cysts of the right kidney reidentified which do not require any additional imaging. Normal visualized stomach. Normal small intestine. Normal colon. There are surgical clips in the region of the appendix consistent with a prior appendectomy. No free air or free fluid or bowel dilatation. There is diffuse atherosclerotic calcification of the abdominal aorta, without a demonstrated aneurysm. Stable bilateral iliac artery stents and endograft. Normal inferior vena cava. Normal retroperitoneum. Mildly circumferential thickening of the bladder wall likely due to chronic cystitis. A small amount of air within the fluid distended bladder is presumably related to catheterization. Small bilateral fat-containing inguinal hernias. Small bilateral visualized testicular hydroceles. Small calcifications of the prostate gland. There are diffuse degenerative changes of the visualized lumbar spine. Chronic compression deformities of the L2 and L3 vertebral bodies. Benign bone islands of the right iliac wing. CT/Abdomen/Pelvis W IV Cont ONLY IMPRESSION: 1. No acute process of the abdomen and pelvis. 2. Mildly circumferential thickening of the bladder wall likely due to chronic cystitis. A small amount of air within the fluid distended bladder is presumably related to catheterization. 3. No free air or free fluid or bowel dilatation. Electronically Signed: Eliazar Owens MD at 17:00 EDT ,
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
[2021-10-08] MEDS: Morphine 4 MG/ML Syringe IV ×2 (15:03→16:20)
[2021-10-08] MEDS: 0.9% Normal Saline 1,000 ML 125 ML IV (15:06)
[2021-10-08 15:16] LABS: Absolute Lymphocyte Count 1.26 X10^3/uL (0.83-4.51); Absolute Neutrophil Count 4.3 X10^3/uL (2.0-7.7); Basophil# 0.08 X10^3/uL; Basophil% 1.3 % (0-1); Eosinophil# 0.03 X10^3/uL; Eosinophils% 0.5 % (0-5); Hematocrit 28.9 % (40-54); Hemoglobin 8.3 g/dL (13.0-16.5); Lymphocyte # 1.26 X10^3/ul (0.83-4.51); Lymphocyte % 20.5 % (19-41); Mean Corp Hgb Conc 28.7 g/dL (32-36); Mean Corpuscular Hgb 21.4 pg (27.0-32.0); Mean Corpuscular Volume 74.7 fL (80-94); Mean Platelet Vol. 10.1 fl (6.2-12.0); Monocyte# 0.43 X10^3/uL; NRBC Flagged by Analyzer 0 % (0-5); Neutrophil # 4.32 X10^3/uL (2.7-7.7); Neutrophil % 70.4 % (47-70); Platelet Count 349 K/mm3 (150-450); RBC Distribution Width CV 18.6 % (11.6-14.6); RBC Distribution Width SD 50.4 fl (35.1-43.9); Red Blood Count 3.87 M/mm3 (4.6-6.2); White Blood Count 6.1 K/mm3 (4.4-11.0)
[2021-10-08] MEDS: cloNIDine HCl 0.2 MG Tablet PO (15:16)
[2021-10-08] MEDS: Albuterol 2.5 MG/3 ML VIAL.NEB. INHALATION (15:20)
[2021-10-08 15:21] VITALS: PULSE 75; RESP 21
[2021-10-08 15:33] LABS: AST(SGOT) 12 U/L (15-37); Alanine Aminotransfer ALT/SGPT 21 U/L (16-61); Albumin, Serum 3.8 g/dL (3.2-5.0); Alkaline Phosphatase 74 U/L (45-117); Anion Gap 3 (5-15); BUN 19 mg/dL (7-18); BUN/Creat Ratio 20.2 RATIO (10-20); Calcium,Total 9.1 mg/dL (8.5-10.1); Chloride 105 mmol/L (98-107); Creatinine, Serum 0.94 mg/dL (0.70-1.30); EST Glomerular Filtration Rate 84 mL/min (>60); Est Glom Filt Rate - Afr Amer 101 mL/min (>60); Estimated Creatinine Clearance 68.72 ml/min; Globulin 3.7 g/dL (2.2-4.2); Glucose 99 mg/dL (74-106); Lipase 93 U/L (73-393); Potassium 3.7 mmol/L (3.5-5.1); Protein, Total 7.5 g/dL (6.4-8.2); Sodium Level 138 mmol/L (136-145)
[2021-10-08 15:55] LABS: International Normalized Ratio 2.4; Prothrombin Time (Protime)PT. 25.7 SECONDS (11.7-14.9)
[2021-10-08 16:02] LABS: Mucous, Urine 0 SEEN /hpf (<or=2+); Red Blood Cells-Urine 0 SEEN /hpf (0-5)
[2021-10-08 16:06] LABS: Color, Urine Yellow (Yellow); Glucose, Dipstick Normal (Normal); Ketone-Dipstick Negative (Negative); Leukocyte Esterase-Dipstick 500 /ul (Negative); Nitrite-Dipstick Positive (Negative); Occult Blood-Urine 10 /ul (Negative); Protein-Dipstick 100 mg/dl (Negative); Urine Bilirubin Dipstick Negative (Negative); Urine Clarity Sl. Cloudy (Clear); Urine Urobilinogen Normal (Normal); Urine pH 6.5 (5.0 - 8.0)
[2021-10-08 16:09] VITALS: BP 178/88; PULSE 111; RESP 18; O2SAT 99
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
[2021-10-08] MEDS: Ondansetron 4 MG/2 ML Vial IV (16:20)
[2021-10-08 16:22] VITALS: BP 154/67; PULSE 63; RESP 20; O2SAT 95
[2021-10-08 16:49] LABS: Bacteria 3+ /hpf (None Seen); Squamous Epithelial Cells - UA 0-5 SEEN /hpf (0-5); White Blood Cells 10-25 SEEN /hpf (0-5)
[2021-10-08] MEDS: Cephalexin 250 MG Capsule 500 MG PO (17:12)
[2021-10-08 17:14] VITALS: BP 149/62; PULSE 58; RESP 18; O2SAT 98
== END 2021-10-08 17:20 | disposition home or self-care (01) ==
PROVIDERS: Emergency Provider Emergency Medicine; PCP Internal Medicine; Visit Provider Emergency Medicine
DX: I10 Essential (primary) hypertension (principal); J43.9 Emphysema, unspecified; K80.70 Calculus of gallbladder and bile duct without cholecystitis without obstruction; N39.0 Urinary tract infection, site not specified; R07.89 Other chest pain; R10.30 Lower abdominal pain, unspecified; F17.210 Nicotine dependence, cigarettes, uncomplicated; G47.30 Sleep apnea, unspecified; Z86.73 Personal history of transient ischemic attack (TIA), and cerebral infarction without residual deficits; Z99.81 Dependence on supplemental oxygen
CPT/HCPCS: 71046; 74177; 80053; 81001; 83690; 85025; 85610; 94640; 96374; 96375; 96376; 99285; J7030; Q9967; A4216; J2405

== ENCOUNTER → 2021-11-11 | Outpatient (CLI) | payer MEDICARE, MEDICAID, SELFPAY ==
[2021-11-11 13:25] LABS: International Normalized Ratio 1.2; Prothrombin Time (Protime)PT. 15.1 SECONDS (11.7-14.9)
== END | disposition home or self-care (01) ==
LOC: LABSPEC 12:57
PROVIDERS: PCP Internal Medicine; Referring Provider Nurse Practitioner; Visit Provider Nurse Practitioner
DX: I25.10 Atherosclerotic heart disease of native coronary artery without angina pectoris (principal)
CPT/HCPCS: 85610

== ENCOUNTER 2021-11-25 17:27 | Inpatient (IN) | payer MEDICARE, MEDICAID, SELFPAY ==
[2021-11-25] VITALS (7 sets, daily range): BP systolic 133–183; BP diastolic 40–107; PULSE 63–73; RESP 16–18; TEMP 36.4–36.6; O2SAT 96–100; BMI 24.7; BMI 24.0
--- NOTE | 2021-11-25 17:42 | EX.ED.DYSGE1 ---
HPI History of Present Illness Chief Complaint: Complaint Informant: patient Onset/Context/Timing Onset: Yesterday Context: Gradual Onset Timing: Continuous Quality: Burning Location: Suprapubic area Worsened by: Urination Relieved by: Nothing Narrative Narrative: Patient with dysuria that began yesterday. Patient states that back in August he removed a Pizano catheter while the balloon was still inflated. Patient states that he was transferred to [facility] at that time. Patient states he has been on antibiotics since that time and just finished his antibiotics yesterday. Patient states that after he finished his antibiotics he started having some dysuria. Patient describes it as a burning sensation. Patient states it is only with urination. Patient states he has pain over the left side of his abdomen. Patient states he feels like there is still part of the Pizano catheter in his abdomen. [facility] Medical History Asthma Atrial fibrillation Chronic pain COPD (chronic obstructive pulmonary disease) Depression Diabetes Falls frequently High cholesterol Hypertension Irregular heart beat Kidney stones On home oxygen therapy Pancreatitis Seizures Sleep apnea Smoker Stroke/cerebrovascular accident Home Medications tamsulosin 0.4 mg PO QHS 01/26/14 [History Last Taken 10/25/19 08:33] finasteride 5 mg PO DAILY 11/14/14 [History Last Taken 10/25/19 08:35] atorvastatin 40 mg PO QHS 09/23/15 [History Last Taken 03/25/20] metoprolol tartrate 12.5 mg PO BID 12/02/15 [History Last Taken 03/26/20] sertraline 100 mg PO DAILY 12/02/15 [History Last Taken 10/25/19 08:35] mirtazapine 15 mg PO QHS 08/16/19 [History Last Taken 10/25/19 20:18] clopidogrel 75 mg PO DAILY 10/25/19 [History Last Taken 03/26/20] carbamazepine 200 mg PO Q12H 10/26/19 [History Last Taken 10/25/19 20:18] warfarin 6 mg PO DAILY 02/25/20 [History Last Taken Unknown] aspirin 81 mg PO DAILY@0800 08/08/20 [History Last Taken Unknown] albuterol sulfate 2.5 mg INHALATION Q4H PRN PRN vial.neb. 08/12/20 [Rx Last Taken Unknown] ipratropium-albuterol 3 ml INHALATION Q6HWA.RT 08/19/21 [History Last Taken Unknown] losartan 100 mg PO DAILY 08/19/21 [History Last Taken Unknown] pantoprazole 40 mg PO DAILY 08/19/21 [History Last Taken Unknown] lidocaine 1 patch TOPICAL DAILY 10/08/21 [History Last Taken Unknown] alendronate mg PO 11/25/21 [History Last Taken Unknown] hydrochlorothiazide 25 mg PO DAILY 11/25/21 [History Last Taken Unknown] nifedipine 90 mg PO DAILY 11/25/21 [History Last Taken Unknown] Allergy/AdvReac Type Severity Reaction Status Date / Time No Known Allergies Allergy Verified 10/08/21 14:15 Family History Other Heart disease Surgical History History of appendectomy S/P arterial stent Social History Smoking Status: Current every day smoker tobacco type: cigarettes alcohol intake: former details: Former 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 ROS ED Constitutional Constitutional ED: Denies chills or fever(s) Eyes Eyes: Denies blurry vision or change in vision ENT ENT ED: Denies rhinorrhea or sore throat Cardiovascular Cardiovascular: Denies chest pain or palpitations Respiratory/Chest Respiratory/Chest: Reports cough and dyspnea Gastrointestinal Gastrointestinal: Reports abdominal pain and nausea; Denies vomiting Genitourinary Genitourinary ED: Reports dysuria; Denies hematuria Musculoskeletal Musculoskeletal: Denies back pain or neck pain Integumentary Denies abscess or rash Neurologic Neurologic: Reports headache(s); Denies weakness Allergic/Immunologic Allergic/Immunologic ED: Denies mouth swelling or urticaria EXAM Physical Exam Const Vital Signs: 11/25/21 17:29 11/25/21 17:33 11/25/21 19:24 Temperature 97.6 F L 97.6 F L Temperature Source Oral Oral Pulse Rate 65 65 66 Respiratory Rate 16 16 16 Blood Pressure 145/45 H 145/45 H 147/107 H Blood Pressure Mean 78 78 120 Pulse Ox 98 98 100 Oxygen Delivery Method Room Air Room Air Room Air Positive well nourished and well developed General Appearance ED: well developed and NAD HEENT Reports moist mucous membranes Neck supple and no JVD Resp normal respiratory effort and clear to auscultation bilaterally Cardio regular rate, regular rhythm and no murmurs GI normal to inspection, nondistended, normoactive bowel sounds and non-tender Palpation: soft Extremity normal to inspection General Extremety ED: Negative for edema or tenderness General Extremity: Negative for edema Neuro oriented x3, CN's II-XII intact bilaterally and no sensory deficits noted Sensorium / Orientation: alert Motor Exam: strength 5/5 throughout Psych mental status grossly normal Skin no rashes or lesions noted MDM MDM MDM Narrative Medical decision making narrative: Patient was given morphine and Zofran here. CBC shows a hemoglobin of 4.4. This was repeated and remained at 4.4. Comprehensive metabolic profile shows a BUN of [address] scan of the abdomen and pelvis was obtained. There are subcentimeter calcifications in the kidneys bilaterally. There is moderate atrophy of the left kidney. There is no acute process. This was interpreted by the radiologist and reviewed by myself. Rectal examination showed maroon stool. This was sent for occult blood. Patient was typed and crossmatched for 2 units packed red blood cells. Case was discussed with Dr. Henderson. He recommended giving Protonix 40 mg IV twice daily. He will follow with the patient in the hospital. Case was discussed with the hospitalist. We will admit the patient to his service. Patient understood and was agreeable with the plan. All questions were answered. Lab Data Attestation: I reviewed the patient's lab results. Labs: Laboratory Results - last 24 hr 11/25/21 11/25/21 11/25/21 17:50 17:50 18:17 WBC 7.3 7.1 RBC 2.34 L 2.36 L Hgb 4.4 L* 4.4 L* Hct 16.8 L 16.9 L MCV 71.8 L 71.6 L MCH 18.8 L 18.6 L MCHC 26.2 L 26.0 L RDW Std Deviation 48.2 H 48.7 H RDW Coeff of Aly 18.6 H 18.6 H Plt Count 421 398 MPV 10.7 10.2 Immature Gran % (Auto) 0.400 0.600 Neut % (Auto) 77.6 H 80.9 H Lymph % (Auto) 15.4 L 11.4 L Ray % (Auto) 5.6 6.3 Eos % (Auto) 0.3 0.1 Baso % (Auto) 0.7 0.7 Absolute Neuts (auto) 5.7 5.8 Absolute Lymphs (auto) 1.13 0.81 L Nucleated RBC % 0.5 0.6 Differential Comment SCANNED SCANNED Diff Path Review May foll May foll Hypochromasia 1+ 1+ Sodium 133 L Potassium 4.2 Chloride 101 Carbon Dioxide 23.0 Anion Gap 9 BUN 24 H Creatinine 1.44 H Estim Creat Clear Calc 44.86 Est GFR (MDRD) Af Amer 62 Est GFR (MDRD) Non-Af 51 L BUN/Creatinine Ratio 16.7 Glucose 113 H Calcium 8.2 L Total Bilirubin 0.20 AST 10 L ALT 20 Alkaline Phosphatase 54 Total Protein 6.8 Albumin 3.7 Globulin 3.1 Albumin/Globulin Ratio 1.2 Urine Color Urine Clarity Urine pH Ur Specific [place] Urine Protein Urine Glucose (UA) Urine Ketones Urine Occult Blood Urine Nitrite Urine Bilirubin Urine Urobilinogen Ur Leukocyte Esterase Urine RBC Urine WBC Ur Squamous Epith Cells Urine Bacteria Urine Mucus Blood Type Antibody Screen Crossmatch 11/25/21 11/25/21 11/25/21 19:02 19:02 19:27 WBC RBC Hgb Hct MCV MCH MCHC RDW Std Deviation RDW Coeff of Aly Plt Count MPV Immature Gran % (Auto) Neut % (Auto) Lymph % (Auto) Ray % (Auto) Eos % (Auto) Baso % (Auto) Absolute Neuts (auto) Absolute Lymphs (auto) Nucleated RBC % Differential Comment Diff Path Review Hypochromasia Sodium Potassium Chloride Carbon Dioxide Anion Gap BUN Creatinine Estim Creat Clear Calc Est GFR (MDRD) Af Amer Est GFR (MDRD) Non-Af BUN/Creatinine Ratio Glucose Calcium Total Bilirubin AST ALT Alkaline Phosphatase Total Protein Albumin Globulin Albumin/Globulin Ratio Urine Color Straw Urine Clarity Clear Urine pH 7.0 Ur Specific [place] 1.010 Urine Protein Negative Urine Glucose (UA) Normal Urine Ketones Negative Urine Occult Blood 50 H Urine Nitrite Negative Urine Bilirubin Negative Urine Urobilinogen Normal Ur Leukocyte Esterase Negative Urine RBC 5-10 SEEN Urine WBC 0 SEEN Ur Squamous Epith Cells 0 SEEN Urine Bacteria RARE Urine Mucus 0 SEEN Blood Type O POSITIVE Antibody Screen NEGATIVE Crossmatch See Detail Radiography Diagnostic Testing: Clinical Impression(s) from Imaging Studies Abdomen/Pelvis CT 11/25/21 17:46 IMPRESSION: Subcentimeter calcifications in the bilateral kidneys, likely combination of nonobstructing stones in vascular calcification. Moderate atrophy of the left kidney. Stable bilateral adrenal nodules. These are likely adenomas. Small to moderate-sized hydroceles bilaterally. Electronically Signed: Ralph Gates MD at 18:37 EDT Reading Location ID and State: [facility] / [place] Tel , Service support , Discharge Plan Triage Chief Complaint: Complaint ED Provider: Raul Melchor Dx/Rx/DC Orders Clinical Impression: Anemia, Gastrointestinal bleeding Prescriptions: No Action tamsulosin 0.4 MG capsule 0.4 mg PO QHS RF: 0 finasteride 5 MG tablet 5 mg PO DAILY RF: 0 atorvastatin 40 MG tablet 40 mg PO QHS RF: 0 sertraline 50 MG tablet 100 mg PO DAILY RF: 0 metoprolol tartrate 25 MG tablet 12.5 mg PO BID RF: 0 mirtazapine 15 MG tablet 15 mg PO QHS RF: 0 clopidogrel 75 MG tablet 75 mg PO DAILY RF: 0 carbamazepine 200 MG tablet 200 mg PO Q12H RF: 0 warfarin 7.5 MG tablet 6 mg PO DAILY RF: 0 aspirin 81 MG tablet,chewable 81 mg PO DAILY@0800 RF: 0 albuterol sulfate 2.5 MG/3 ML solution for nebulization 2.5 mg INHALATION Q4H PRN PRN (Reason: sob/wheezing) RF: 0 losartan 100 mg tablet 100 mg PO DAILY RF: 0 pantoprazole 40 mg tablet,delayed release (DR/EC) 40 mg PO DAILY RF: 0 ipratropium-albuterol 3 ML solution for nebulization 3 ml INHALATION Q6HWA.RT RF: 0 lidocaine 5 % adhesive patch,medicated 1 patch topical DAILY RF: 0 nifedipine 90 mg tablet extended release 90 mg PO DAILY RF: 0 alendronate 70 mg tablet PO RF: 0 hydrochlorothiazide 12.5 mg capsule 25 mg PO DAILY RF: 0 Primary Care Provider: Daija Douglas Referrals: Daija Douglas MD [Primary Care Provider] - Disposition Disposition: Acute Care [facility]
--- NOTE | 2021-11-25 17:46 | CT_ITS ---
STUDY: CT ABDOMEN AND PELVIS WITHOUT CONTRAST REASON FOR EXAM: Male, 71 years old. Abdominal pain RADIATION DOSAGE (If Supplied By Facility): CTDIvol = ( 6.69 ) mGy, DLP = ( 424.35 ) mGycm TECHNIQUE: Transaxial images were obtained from the dome of the diaphragm to the symphysis pubis without oral contrast, and without intravenous contrast. Sagittal and coronal images were reconstructed. Individualized dose optimization techniques were used for this CT. COMPARISON: 10/08/2021 FINDINGS: Lung bases clear. Atherosclerosis of the coronary arteries noted. Unremarkable liver, spleen, pancreas, and gallbladder. Stable bilateral adrenal nodules, consistent with adenomas. Moderate atrophy of the left kidney. Subcentimeter calcifications in the bilateral kidneys, likely combination of vascular constipation is a nonobstructing stones. No radiopaque stone in the ureters. Status post appendectomy. Bowel loops nonobstructed. No free air or free fluid. No adenopathy. Vascular calcification. No abdominal aortic aneurysm. Aortobiiliac graft in place. Sections through the pelvis demonstrate a normal sized prostate. Urinary bladder grossly intact. Small fat-containing inguinal hernias. Postsurgical changes in the left inguinal region with scarring. Small to moderate-sized bilateral hydroceles. Old compression fractures of L2 on L3. Multilevel thoracolumbar spondylosis. Osteoarthritis of the bilateral hip joints. Diffuse osteopenia. CT/Abdomen/Pelvis without Cont IMPRESSION: Subcentimeter calcifications in the bilateral kidneys, likely combination of nonobstructing stones in vascular calcification. Moderate atrophy of the left kidney. Stable bilateral adrenal nodules. These are likely adenomas. Small to moderate-sized hydroceles bilaterally. Electronically Signed: Ralph Gates MD at 18:37 EDT ,
[2021-11-25 17:59] LABS: Absolute Lymphocyte Count 1.13 X10^3/uL (0.83-4.51); Absolute Neutrophil Count 5.7 X10^3/uL (2.0-7.7); Basophil# 0.05 X10^3/uL; Basophil% 0.7 % (0-1); Eosinophil# 0.02 X10^3/uL; Eosinophils% 0.3 % (0-5); Hematocrit 16.8 % (40-54); Lymphocyte # 1.13 X10^3/ul (0.83-4.51); Lymphocyte % 15.4 % (19-41); Mean Corp Hgb Conc 26.2 g/dL (32-36); Mean Corpuscular Hgb 18.8 pg (27.0-32.0); Mean Corpuscular Volume 71.8 fL (80-94); Mean Platelet Vol. 10.7 fl (6.2-12.0); Monocyte# 0.41 X10^3/uL; Monocyte% 5.6 % (0-10); NRBC Flagged by Analyzer 0.5 % (0-5); Neutrophil % 77.6 % (47-70); POSITIVE COUNT YES; Platelet Count 421 K/mm3 (150-450); RBC Distribution Width CV 18.6 % (11.6-14.6); RBC Distribution Width SD 48.2 fl (35.1-43.9); Red Blood Count 2.34 M/mm3 (4.6-6.2); White Blood Count 7.3 K/mm3 (4.4-11.0)
[2021-11-25 18:04] LABS: Hemoglobin 4.4 g/dL (13.0-16.5)
[2021-11-25 18:05] LABS: Differential Indicated SCAN CRITERIA MET
[2021-11-25 18:16] LABS: ALB/GLOB Ratio 1.2 RATIO (0.9-2.4); AST(SGOT) 10 U/L (15-37); Alanine Aminotransfer ALT/SGPT 20 U/L (16-61); Albumin, Serum 3.7 g/dL (3.2-5.0); Alkaline Phosphatase 54 U/L (45-117); Anion Gap 9 (5-15); BUN 24 mg/dL (7-18); BUN/Creat Ratio 16.7 RATIO (10-20); Calcium,Total 8.2 mg/dL (8.5-10.1); Chloride 101 mmol/L (98-107); Creatinine, Serum 1.44 mg/dL (0.70-1.30); EST Glomerular Filtration Rate 51 mL/min (>60); Est Glom Filt Rate - Afr Amer 62 mL/min (>60); Estimated Creatinine Clearance 44.86 ml/min; Globulin 3.1 g/dL (2.2-4.2); Glucose 113 mg/dL (74-106); Potassium 4.2 mmol/L (3.5-5.1); Protein, Total 6.8 g/dL (6.4-8.2); Sodium Level 133 mmol/L (136-145)
[2021-11-25 18:29] LABS: Absolute Lymphocyte Count 0.81 X10^3/uL (0.83-4.51); Absolute Neutrophil Count 5.8 X10^3/uL (2.0-7.7); Basophil# 0.05 X10^3/uL; Basophil% 0.7 % (0-1); Eosinophil# 0.01 X10^3/uL; Eosinophils% 0.1 % (0-5); Hematocrit 16.9 % (40-54); Lymphocyte # 0.81 X10^3/ul (0.83-4.51); Lymphocyte % 11.4 % (19-41); Mean Corpuscular Hgb 18.6 pg (27.0-32.0); Mean Corpuscular Volume 71.6 fL (80-94); Mean Platelet Vol. 10.2 fl (6.2-12.0); Monocyte# 0.45 X10^3/uL; Monocyte% 6.3 % (0-10); NRBC Flagged by Analyzer 0.6 % (0-5); Neutrophil # 5.77 X10^3/uL (2.7-7.7); Neutrophil % 80.9 % (47-70); POSITIVE COUNT YES; Platelet Count 398 K/mm3 (150-450); RBC Distribution Width CV 18.6 % (11.6-14.6); RBC Distribution Width SD 48.7 fl (35.1-43.9); Red Blood Count 2.36 M/mm3 (4.6-6.2); White Blood Count 7.1 K/mm3 (4.4-11.0)
[2021-11-25 18:31] LABS: Differential Indicated SCAN CRITERIA MET; Hemoglobin 4.4 g/dL (13.0-16.5)
[2021-11-25 18:32] LABS: Differential Comment SCANNED
[2021-11-25 18:33] LABS: Hypochromasia 1+
[2021-11-25 18:33] LABS: Differential Comment SCANNED
[2021-11-25 18:34] LABS: Hypochromasia 1+
[2021-11-25 19:33] LABS: Mucous, Urine 0 SEEN /hpf (<or=2+); Squamous Epithelial Cells - UA 0 SEEN /hpf (0-5); White Blood Cells 0 SEEN /hpf (0-5)
[2021-11-25 19:35] LABS: Color, Urine Straw (Yellow); Glucose, Dipstick Normal (Normal); Ketone-Dipstick Negative (Negative); Leukocyte Esterase-Dipstick Negative /ul (Negative); Nitrite-Dipstick Negative (Negative); Occult Blood-Urine 50 /ul (Negative); Protein-Dipstick Negative (Negative); Urine Bilirubin Dipstick Negative (Negative); Urine Clarity Clear (Clear); Urine Urobilinogen Normal (Normal)
[2021-11-25] MEDS: Ondansetron 4 MG/2 ML Vial IV (19:44)
[2021-11-25] MEDS: Morphine 4 MG/ML Syringe IV ×2 (19:44→21:41)
[2021-11-25 19:52] LABS: Bacteria RARE /hpf (None Seen); Red Blood Cells-Urine 5-10 SEEN /hpf (0-5)
[2021-11-25 20:11] LABS: Prothrombin Time (Protime)PT. 49.2 SECONDS (11.7-14.9)
--- NOTE | 2021-11-25 20:17 | PCM.HP.STD ---
[facility] - General General Date of Admission: 11/25/21 HPI Narrative PEDRO PABLO SIERRA, is a 71 M with a significant history of COPD and asthma; tobacco abuse; depression and anxiety on sertraline and mirtazapine; BPH on finasteride and tamsulosin; DVT on Coumadin; PAD with reportedly 9 stents in his left leg and 2 stents in his right leg who presents to emergency department with a same day history of black watery diarrhea. Associated with symptoms is nausea. He denies vomiting. Also patient reports a recurrence of dysuria on the same day of presentation. History is limited as patient is a poor informant. He reports dysuria that started right after August 2021. He report that he has been on antibiotics for 1 week and his dysuria started on the same day of presentation which is the next day after he completed antibiotics use. Reportedly previously he had an indwelling Pizano catheter that he ripped off. Reports good appetite but report that he is too weak and fatigued to get up and make food. After the patient reports left abdominal pain that has been going on for about 6 months. Patient reports chronic productive cough. He called his PCPs office and was instructed to come to the emergency department. Patient walks with a cane. [facility] Medical History Asthma Atrial fibrillation Chronic pain COPD (chronic obstructive pulmonary disease) Depression Diabetes Falls frequently High cholesterol Hypertension Irregular heart beat Kidney stones On home oxygen therapy Pancreatitis Seizures Sleep apnea Smoker Stroke/cerebrovascular accident Home Medications tamsulosin 0.4 mg PO QHS 01/26/14 [History Last Taken 10/25/19 08:33] finasteride 5 mg PO DAILY 11/14/14 [History Last Taken 10/25/19 08:35] atorvastatin 40 mg PO QHS 09/23/15 [History Last Taken 03/25/20] metoprolol tartrate 12.5 mg PO BID 12/02/15 [History Last Taken 03/26/20] sertraline 100 mg PO DAILY 12/02/15 [History Last Taken 10/25/19 08:35] mirtazapine 15 mg PO QHS 08/16/19 [History Last Taken 10/25/19 20:18] clopidogrel 75 mg PO DAILY 10/25/19 [History Last Taken 03/26/20] carbamazepine 200 mg PO Q12H 10/26/19 [History Last Taken 10/25/19 20:18] warfarin 6 mg PO DAILY 02/25/20 [History Last Taken Unknown] aspirin 81 mg PO DAILY@0800 08/08/20 [History Last Taken Unknown] albuterol sulfate 2.5 mg INHALATION Q4H PRN PRN vial.neb. 08/12/20 [Rx Last Taken Unknown] ipratropium-albuterol 3 ml INHALATION Q6HWA.RT 08/19/21 [History Last Taken Unknown] losartan 100 mg PO DAILY 08/19/21 [History Last Taken Unknown] pantoprazole 40 mg PO DAILY 08/19/21 [History Last Taken Unknown] lidocaine 1 patch TOPICAL DAILY 10/08/21 [History Last Taken Unknown] alendronate mg PO 11/25/21 [History Last Taken Unknown] hydrochlorothiazide 25 mg PO DAILY 11/25/21 [History Last Taken Unknown] nifedipine 90 mg PO DAILY 11/25/21 [History Last Taken Unknown] Allergy/AdvReac Type Severity Reaction Status Date / Time No Known Allergies Allergy Verified 10/08/21 14:15 Family History Other Heart disease Surgical History History of appendectomy S/P arterial stent Social History Smoking Status: Current every day smoker tobacco type: cigarettes alcohol intake: former details: Former 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 ROS Narrative Pertinent positives and pertinent negatives as noted in HPI. All other systems were reviewed and are negative. Vital Signs Vital Signs Vital Signs: 11/25/21 17:29 11/25/21 17:33 11/25/21 19:24 Temperature 97.6 F L 97.6 F L Temperature Source Oral Oral Pulse Rate 65 65 66 Respiratory Rate 16 16 16 Blood Pressure 145/45 H 145/45 H 147/107 H Blood Pressure Mean 78 78 120 Pulse Ox 98 98 100 Oxygen Delivery Method Room Air Room Air Room Air Weight Weight: 73.7 kg Body Mass Index (BMI) 24.7 Physical Exam Narrative Physical exam: General: Well-nourished, well-developed. Head: Normocephalic, atraumatic, no tenderness Eyes: Vision is grossly intact. EOMI ENT, no trauma, moist mucous membranes, no rhinorrhea Neck: Nontender, full range of motion, no spinal tenderness, deformities, step-off CVS: Regular rate and rhythm. S1-S2 present. No murmur, gallop or rub. Respiratory : Wheezes and rhonchi, chest wall nontender. Abdomen: Soft, nondistended, normal bowel sounds. Abdomen is nontender to light palpation. Patient did not want deep palpation on his left lower quadrant. : Deferred Back: Nontender, no CVA tenderness Extremities: Nontender full range of motion, no trauma Skin: Normal color, no trauma, abrasions Neuro: Alert, oriented, cranial nerves II through XII grossly intact. Psychiatry: Normal mood. Normal affect. Not depressed. Not anxious. Results Lab / Micro Data Result Diagrams: 11/25/21 18:17 11/25/21 17:50 Labs: Laboratory Results - last 24 hr 11/25/21 17:50: WBC 7.3, RBC 2.34 L, Hgb 4.4 L*, Hct 16.8 L, MCV 71.8 L, MCH 18.8 L, MCHC 26.2 L, RDW Std Deviation 48.2 H, RDW Coeff of Aly 18.6 H, Plt Count 421, MPV 10.7, Immature Gran % (Auto) 0.400, Neut % (Auto) 77.6 H, Lymph % (Auto) 15.4 L, [place] % (Auto) 5.6, Eos % (Auto) 0.3, Baso % (Auto) 0.7, Absolute Neuts (auto) 5.7, Absolute Lymphs (auto) 1.13, Nucleated RBC % 0.5, Differential Comment SCANNED, Diff Path Review May foll, Hypochromasia 1+ 11/25/21 17:50: Sodium 133 L, Potassium 4.2, Chloride 101, Carbon Dioxide 23.0, Anion Gap 9, BUN 24 H, Creatinine 1.44 H, Estim Creat Clear Calc 44.86, Est GFR (MDRD) Af Amer 62, Est GFR (MDRD) Non-Af 51 L, BUN/Creatinine Ratio 16.7, Glucose 113 H, Calcium 8.2 L, Total Bilirubin 0.20, AST 10 L, ALT 20, Alkaline Phosphatase 54, Total Protein 6.8, Albumin 3.7, Globulin 3.1, Albumin/Globulin Ratio 1.2 11/25/21 18:17: WBC 7.1, RBC 2.36 L, Hgb 4.4 L*, Hct 16.9 L, MCV 71.6 L, MCH 18.6 L, MCHC 26.0 L, RDW Std Deviation 48.7 H, RDW Coeff of Aly 18.6 H, Plt Count 398, MPV 10.2, Immature Gran % (Auto) 0.600, Neut % (Auto) 80.9 H, Lymph % (Auto) 11.4 L, [place] % (Auto) 6.3, Eos % (Auto) 0.1, Baso % (Auto) 0.7, Absolute Neuts (auto) 5.8, Absolute Lymphs (auto) 0.81 L, Nucleated RBC % 0.6, Differential Comment SCANNED, Diff Path Review May foll, Hypochromasia 1+ 11/25/21 19:02: Crossmatch See Detail 11/25/21 19:27: Urine Color Straw, Urine Clarity Clear, Urine pH 7.0, Ur Specific [place] 1.010, Urine Protein Negative, Urine Glucose (UA) Normal, Urine Ketones Negative, Urine Occult Blood 50 H, Urine Nitrite Negative, Urine Bilirubin Negative, Urine Urobilinogen Normal, Ur Leukocyte Esterase Negative, Urine RBC 5-10 SEEN, Urine WBC 0 SEEN, Ur Squamous Epith Cells 0 SEEN, Urine Bacteria RARE, Urine Mucus 0 SEEN Micro: Microbiology 11/25/21 19:00 Stool Stool Occult Blood (LACI) - Final Occult Blood Positive Radiology Impression Abdomen/Pelvis CT 11/25/21 17:46 IMPRESSION: Subcentimeter calcifications in the bilateral kidneys, likely combination of nonobstructing stones in vascular calcification. Moderate atrophy of the left kidney. Stable bilateral adrenal nodules. These are likely adenomas. Small to moderate-sized hydroceles bilaterally. Electronically Signed: Ralph Gates MD at 18:37 EDT , Assessment & Plan Assessment/Plan (1) ABLA (acute blood loss anemia): PLAN: Acute blood loss anemia on chronic anemia Hemoglobin on presentation was of 4.4. Repeat was still 4.4. Review of previous records shows chronic anemia. Patient was typed and screened and 2 units ordered at emergency department to be transfused. Follow-up H&H after transfusions Abdomen pelvis CT was visualized and independently interpreted and agree with allege interpretation above. Emergency department doctor discussed the case with property consultant who will follow. Inpatient consult for GI. IV fluids Iron panel; ferritin level; folic acid and vitamin B12 level ordered. Peripheral artery disease with multiple stents/history of DVT Hold aspirin and Plavix at this time. Consider discussion with vascular surgeon. Hold Coumadin. PT/INR ordered at emergency department; follow. Trend PT/INR. FLEX Creatinine presentation was 1.44. Review of record shows a creatinine baseline around 1. BUN is 24. BUN over creatinine is 16.7. Likely ATN. Avoid nephrotoxins. Hold home hydrochlorothiazide and losartan. Trend BMP Hyponatremia Sodium of 133, mild. Likely secondary to volume contraction. Trend BMP. Fluid and blood as above. Hypertension Blood pressure is not within goal. Continue home blood pressure medications. Trend blood pressures in the setting of acute blood loss anemia. Parameters placed on blood pressure medications Dysuria Urinalysis at the emergency department was unremarkable for infection. Urine occult blood and urine RBC presents. Monitor. DVT prophylaxis: SCD ordered. Miscellaneous: On carbamazepine for unknown indications and this will be continued. On the unclear whether patient has a history of seizures; trigeminal neuralgia or other Charges/Coding Visit Charges Inpatient E&M: 07620 Init Hosp L3
[2021-11-25 21:03] LABS: International Normalized Ratio 5.4
[2021-11-25 21:27] LABS: Platelet Count 416 K/mm3 (150-450)
--- NOTE | 2021-11-25 21:35 | ED.RN ---
blood transfusion started, scanner not working. down time blood transfusion form started.
[2021-11-25] MEDS: Phytonadione (Vit K1) 5 MG TABLET PO (22:00)
[2021-11-25 22:19] LABS: Ferritin 5 ng/mL (26-388)
--- NOTE | 2021-11-25 23:00 | CON.PCM_ITS ---
Assessment & Plan Assessment/Plan (1) ABLA (acute blood loss anemia): PLAN: The differential diagnosis for his acute blood loss anemia GI bleed with rapid transit. His risk factors are being on Antiplatelet and antico agulation therapy, lower GI bleed secondary to diverticular bleed, AVM, telangiectasia and less likely neoplasia. He will undergo an upper endoscopy negative he will need to have. He was explained alternatives, risk, benefits including not withstanding bleeding, infection, perforation, need for emergent surgery . He will have an ASA of 3. HPI Consult Data Date of Consult: 11/26/21 HPI Narrative HPI Narrative: PEDRO PABLO SIERRA, is a 71 M who presents with bloody diarrhea. His past medical history is significant for COPD and asthma; tobacco abuse; depression and anxiety on sertraline and mirtazapine; BPH on finasteride and tamsulosin; DVT on Coumadin; PAD with reportedly 9 stents in his left leg and 2 stents in his right leg who presents to emergency department with a same day history of black watery diarrhea. He also complains of fatigue.. He has a history of atrial flutter and come to be a severe peripheral vascular disease requiring Coumadin. Because of his CAD he also takes Plavix therapy. In the ED he was discovered to have a hemoglobin of 4.4. He received 2 units packed red blood cells and his hemoglobin went up to 6.5. He is not having any chest pain or shortness of breath.. He does not know when his last colonoscopy was. He is not a very good historian. [facility] Medical History Asthma Atrial fibrillation Chronic pain COPD (chronic obstructive pulmonary disease) Depression Diabetes Falls frequently High cholesterol Hypertension Irregular heart beat Kidney stones On home oxygen therapy Pancreatitis Seizures Sleep apnea Smoker Stroke/cerebrovascular accident Home Medications tamsulosin 0.4 mg PO QHS 01/26/14 [History Last Taken 10/25/19 08:33] finasteride 5 mg PO DAILY 11/14/14 [History Last Taken 10/25/19 08:35] atorvastatin 40 mg PO QHS 09/23/15 [History Last Taken 03/25/20] metoprolol tartrate 12.5 mg PO BID 12/02/15 [History Last Taken 03/26/20] sertraline 100 mg PO DAILY 12/02/15 [History Last Taken 10/25/19 08:35] mirtazapine 15 mg PO QHS 08/16/19 [History Last Taken 10/25/19 20:18] clopidogrel 75 mg PO DAILY 10/25/19 [History Last Taken 03/26/20] carbamazepine 200 mg PO Q12H 10/26/19 [History Last Taken 10/25/19 20:18] warfarin 6 mg PO DAILY 02/25/20 [History Last Taken Unknown] aspirin 81 mg PO DAILY@0800 08/08/20 [History Last Taken Unknown] albuterol sulfate 2.5 mg INHALATION Q4H PRN PRN vial.neb. 08/12/20 [Rx Last Taken Unknown] ipratropium-albuterol 3 ml INHALATION Q6HWA.RT 08/19/21 [History Last Taken Unknown] losartan 100 mg PO DAILY 08/19/21 [History Last Taken Unknown] pantoprazole 40 mg PO DAILY 08/19/21 [History Last Taken Unknown] lidocaine 1 patch TOPICAL DAILY 10/08/21 [History Last Taken Unknown] alendronate mg PO 11/25/21 [History Last Taken Unknown] hydrochlorothiazide 25 mg PO DAILY 11/25/21 [History Last Taken Unknown] nifedipine 90 mg PO DAILY 11/25/21 [History Last Taken Unknown] Allergy/AdvReac Type Severity Reaction Status Date / Time No Known Allergies Allergy Verified 10/08/21 14:15 Family History Other Heart disease Surgical History History of appendectomy S/P arterial stent Social History Smoking Status: Current every day smoker tobacco type: cigarettes alcohol intake: former details: Former 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 Gastrointestinal Gastrointestinal: Reports melena Physical Exam Const alert General Appearance: cooperative Orientation / Consciousness: oriented to person HEENT hearing grossly normal bilaterally Head and Scalp: normal to inspection Face and Sinus: face symmetric Nose: external nose normal Mouth: oral and palatal mucosa normal Eyes conjunctivae normal General Eye: normal appearance of both eyes Neck full ROM General: normal visual inspection Lymph Lymphatic: no lymphadenopathy noted Chest inspection of chest normal and palpation of chest normal Chest: symmetrical chest wall rise Resp normal respiratory effort Effort and Inspection: able to speak in complete sentences Cardio regular rate GI non-distended Percussion: normal to percussion Rectal Exam: deferred Neuro Speech: speech normal Gait (Neuro): normal gait Lab / Micro Data Result Diagrams: 11/26/21 08:15 11/26/21 08:34 Labs: Laboratory Results - last 24 hr 11/25/21 17:00: PT 49.2 H, INR 5.4 H* 11/25/21 17:50: WBC 7.3, RBC 2.34 L, Hgb 4.4 L*, Hct 16.8 L, MCV 71.8 L, MCH 18.8 L, MCHC 26.2 L, RDW Std Deviation 48.2 H, RDW Coeff of Aly 18.6 H, Plt Count 421, MPV 10.7, Immature Gran % (Auto) 0.400, Neut % (Auto) 77.6 H, Lymph % (Auto) 15.4 L, [place] % (Auto) 5.6, Eos % (Auto) 0.3, Baso % (Auto) 0.7, Absolute Neuts (auto) 5.7, Absolute Lymphs (auto) 1.13, Nucleated RBC % 0.5, Differential Comment SCANNED, Diff Path Review May foll, Hypochromasia 1+ 11/25/21 17:50: Sodium 133 L, Potassium 4.2, Chloride 101, Carbon Dioxide 23.0, Anion Gap 9, BUN 24 H, Creatinine 1.44 H, Estim Creat Clear Calc 44.86, Est GFR (MDRD) Af Amer 62, Est GFR (MDRD) Non-Af 51 L, BUN/Creatinine Ratio 16.7, Glucose 113 H, Calcium 8.2 L, Total Bilirubin 0.20, AST 10 L, ALT 20, Alkaline Phosphatase 54, Total Protein 6.8, Albumin 3.7, Globulin 3.1, Albumin/Globulin Ratio 1.2 11/25/21 17:50: Ferritin 5 L, Folate 12.90 11/25/21 17:50: Iron 10 L, TIBC 466 H, Iron Saturation 2.1 L 11/25/21 18:17: WBC 7.1, RBC 2.36 L, Hgb 4.4 L*, Hct 16.9 L, MCV 71.6 L, MCH 18.6 L, MCHC 26.0 L, RDW Std Deviation 48.7 H, RDW Coeff of Aly 18.6 H, Plt Count 398, MPV 10.2, Immature Gran % (Auto) 0.600, Neut % (Auto) 80.9 H, Lymph % (Auto) 11.4 L, [place] % (Auto) 6.3, Eos % (Auto) 0.1, Baso % (Auto) 0.7, Absolute Neuts (auto) 5.8, Absolute Lymphs (auto) 0.81 L, Nucleated RBC % 0.6, Differential Comment SCANNED, Diff Path Review October foll, Hypochromasia 1+ 11/25/21 18:17: Retic Count 2.10 H, Immature Retic Fraction 25.00 H, Retic Hgb Equivalent 15.0 L 11/25/21 19:02: Blood Type O POSITIVE, Antibody Screen NEGATIVE 11/25/21 19:02: Crossmatch See Detail 11/25/21 19:27: Urine Color Straw, Urine Clarity Clear, Urine pH 7.0, Ur Specific [place] 1.010, Urine Protein Negative, Urine Glucose (UA) Normal, Urine Ketones Negative, Urine Occult Blood 50 H, Urine Nitrite Negative, Urine Bilirubin Negative, Urine Urobilinogen Normal, Ur Leukocyte Esterase Negative, Urine RBC 5-10 SEEN, Urine WBC 0 SEEN, Ur Squamous Epith Cells 0 SEEN, Urine Bacteria RARE, Urine Mucus 0 SEEN 11/26/21 08:15: Hgb 6.5 L, Hct 21.3 L 11/26/21 08:34: Vitamin B12 403 11/26/21 08:34: PT 19.4 H, INR 1.7 11/26/21 08:34: Sodium 137, Potassium 3.8, Chloride 102, Carbon Dioxide 30.0, Anion Gap 5, BUN 22 H, Creatinine 1.20, Estim Creat Clear Calc 53.83, Est GFR (MDRD) Af Amer 76, Est GFR (MDRD) Non-Af 63, BUN/Creatinine Ratio 18.3, Glucose 84, Calcium 8.6 11/26/21 08:34: Troponin I High Sens 13 Micro: Microbiology 11/25/21 19:00 Stool Stool Occult Blood (LACI) - Final Occult Blood Positive Radiology Impression Abdomen/Pelvis CT 11/25/21 17:46 IMPRESSION: Subcentimeter calcifications in the bilateral kidneys, likely combination of nonobstructing stones in vascular calcification. Moderate atrophy of the left kidney. Stable bilateral adrenal nodules. These are likely adenomas. Small to moderate-sized hydroceles bilaterally. Electronically Signed: Ralph Gates MD at 18:37 EDT , Chest X-Ray 11/26/21 06:15 IMPRESSION: No acute findings in the chest. COPD changes. Electronically Signed: Raymundo Zaragoza MD at 6:56 EDT , Charges/Coding Visit Charges Inpatient E&M: 73363 Init Hosp L2
--- NOTE | 2021-11-25 23:32 | NURSING ---
Addendum entered by Michelle Pelayo 11/25/21 23:42: Wasnt able to put money w/ the meds, so money is in the room inside med drawer. Pt aware. Original Note: Pt home meds locked up in the med cabinet in the med room. Pt has also $56 waldron in the bag with the meds.
[2021-11-26] VITALS (27 sets, daily range): BP systolic 119–166; BP diastolic 44–73; PULSE 61–82; RESP 16–22; TEMP 36.2–36.8; O2SAT 89–100; BMI 24.0
--- NOTE | 2021-11-26 00:05 | NURSING ---
blood transfusion started, unable to scan bag. Downtime form continue to use.
[2021-11-26] MEDS: Mirtazapine 15 MG Tablet PO ×2 (00:09→21:33)
[2021-11-26] MEDS: Tamsulosin HCl 0.4 MG Capsule PO ×2 (00:09→21:31)
[2021-11-26] MEDS: carBAMazepine 200 MG Tablet PO ×3 (00:09→21:34)
[2021-11-26] MEDS: Metoprolol Tartrate 25 MG Tablet 12.5 MG PO ×3 (00:09→21:31)
[2021-11-26] MEDS: Atorvastatin Calcium 40 MG Tablet PO ×2 (00:10→21:31)
[2021-11-26 01:06] LABS: Iron 10 ug/dL (65-175); Iron Binding Capacity,Total 466 ug/dL (250-450); PERCENT IRON SATURATION 2.1 % (15.0-55.0)
--- NOTE | 2021-11-26 04:18 | NURSING ---
2nd unit of FFP started, was able to scan/verify in the computer initially. Now wouldn't allow RN to log VS in. Downtime form use to log VS in.
--- NOTE | 2021-11-26 06:15 | RAD_ITS ---
EXAM: XR CHEST, 1 VIEW CLINICAL INDICATION: wheezes TECHNIQUE: Frontal view of the chest. This report was created using [employer] report generation technology. COMPARISON: 10/08/2021 FINDINGS: LUNGS AND PLEURAL SPACES: Hyperinflation. No pneumothorax. No effusion. HEART: Unremarkable. Cardiac silhouette not enlarged. MEDIASTINUM: Central airways and mediastinal contour are unremarkable. BONES/JOINTS: Unremarkable. SOFT TISSUES: Unremarkable. RAD/Chest 1 View (Portable) IMPRESSION: No acute findings in the chest. COPD changes. Electronically Signed: Raymundo Zaragoza MD at 6:56 EDT ,
--- NOTE | 2021-11-26 06:25 | PCM.PN.BLA ---
Progress Note On presentation patient reported a history of asthma, COPD and emphysema. Nurse reported that FFP is running and patient has some wheezes. Nurse requesting as needed breathing treatment. Lasix 40 mg IV push x1 ordered. Stat chest x-ray ordered. Breathing treatment [id number] ordered.
[2021-11-26] MEDS: Morphine 2 MG/ML Syringe IV (06:49)
[2021-11-26] MEDS: Furosemide 40 MG/4 ML Vial IV (06:49)
[2021-11-26] MEDS: 0.9% Saline Lock 10 ML Syringe IV (06:49)
[2021-11-26] MEDS: Ipratropium/Albuterol Sulfate 3 ML AMPUL.NEB INHALATION (07:08)
[2021-11-26 08:57] LABS: International Normalized Ratio 1.7; Prothrombin Time (Protime)PT. 19.4 SECONDS (11.7-14.9)
[2021-11-26 09:17] LABS: Vitamin B12 403 pg/mL (211-911)
[2021-11-26 09:20] LABS: Anion Gap 5 (5-15); BUN 22 mg/dL (7-18); BUN/Creat Ratio 18.3 RATIO (10-20); Calcium,Total 8.6 mg/dL (8.5-10.1); Chloride 102 mmol/L (98-107); EST Glomerular Filtration Rate 63 mL/min (>60); Est Glom Filt Rate - Afr Amer 76 mL/min (>60); Estimated Creatinine Clearance 53.83 ml/min; Glucose 84 mg/dL (74-106); Potassium 3.8 mmol/L (3.5-5.1); Sodium Level 137 mmol/L (136-145)
[2021-11-26 09:51] LABS: Hematocrit 21.3 % (40-54); Hemoglobin 6.5 g/dL (13.0-16.5)
[2021-11-26] MEDS: Lidocaine 5% Patch 1 PATCH TOPICAL (09:57)
--- NOTE | 2021-11-26 10:02 | PCM.PN.HOSP ---
Objective Data Objective Data Vital Signs: Vital Signs Temp Pulse Resp BP Pulse Ox 98.3 F 82 18 146/57 H 93 11/26/21 07:28 11/26/21 07:44 11/26/21 07:28 11/26/21 07:28 11/26/21 07:28 Oxygen Delivery Method Room Air Weight: 157 lb 13.616 oz Body Mass Index (BMI) 24.0 Intake & Output: Intake and Output for Last 24 Hours 11/24/21 11/25/21 11/26/21 23:59 23:59 23:59 Intake Total 25 / 25 800 / 800 Output Total 300 / 300 900 / 900 Balance -275 / -275 -100 / -100 Lab / Micro Data Result Diagrams: 11/26/21 08:15 11/26/21 08:34 Labs: Laboratory Results - last 24 hr 11/25/21 17:00: PT 49.2 H, INR 5.4 H* 11/25/21 17:50: WBC 7.3, RBC 2.34 L, Hgb 4.4 L*, Hct 16.8 L, MCV 71.8 L, MCH 18.8 L, MCHC 26.2 L, RDW Std Deviation 48.2 H, RDW Coeff of Aly 18.6 H, Plt Count 421, MPV 10.7, Immature Gran % (Auto) 0.400, Neut % (Auto) 77.6 H, Lymph % (Auto) 15.4 L, [place] % (Auto) 5.6, Eos % (Auto) 0.3, Baso % (Auto) 0.7, Absolute Neuts (auto) 5.7, Absolute Lymphs (auto) 1.13, Nucleated RBC % 0.5, Differential Comment SCANNED, Diff Path Review October foll, Hypochromasia 1+ 11/25/21 17:50: Sodium 133 L, Potassium 4.2, Chloride 101, Carbon Dioxide 23.0, Anion Gap 9, BUN 24 H, Creatinine 1.44 H, Estim Creat Clear Calc 44.86, Est GFR (MDRD) Af Amer 62, Est GFR (MDRD) Non-Af 51 L, BUN/Creatinine Ratio 16.7, Glucose 113 H, Calcium 8.2 L, Total Bilirubin 0.20, AST 10 L, ALT 20, Alkaline Phosphatase 54, Total Protein 6.8, Albumin 3.7, Globulin 3.1, Albumin/Globulin Ratio 1.2 11/25/21 17:50: Ferritin 5 L, Folate 12.90 11/25/21 17:50: Iron 10 L, TIBC 466 H, Iron Saturation 2.1 L 11/25/21 18:17: WBC 7.1, RBC 2.36 L, Hgb 4.4 L*, Hct 16.9 L, MCV 71.6 L, MCH 18.6 L, MCHC 26.0 L, RDW Std Deviation 48.7 H, RDW Coeff of Aly 18.6 H, Plt Count 398, MPV 10.2, Immature Gran % (Auto) 0.600, Neut % (Auto) 80.9 H, Lymph % (Auto) 11.4 L, [place] % (Auto) 6.3, Eos % (Auto) 0.1, Baso % (Auto) 0.7, Absolute Neuts (auto) 5.8, Absolute Lymphs (auto) 0.81 L, Nucleated RBC % 0.6, Differential Comment SCANNED, Diff Path Review May foll, Hypochromasia 1+ 11/25/21 18:17: Retic Count 2.10 H, Immature Retic Fraction 25.00 H, Retic Hgb Equivalent 15.0 L 11/25/21 19:02: Blood Type O POSITIVE, Antibody Screen NEGATIVE 11/25/21 19:02: Crossmatch See Detail 11/25/21 19:27: Urine Color Straw, Urine Clarity Clear, Urine pH 7.0, Ur Specific [place] 1.010, Urine Protein Negative, Urine Glucose (UA) Normal, Urine Ketones Negative, Urine Occult Blood 50 H, Urine Nitrite Negative, Urine Bilirubin Negative, Urine Urobilinogen Normal, Ur Leukocyte Esterase Negative, Urine RBC 5-10 SEEN, Urine WBC 0 SEEN, Ur Squamous Epith Cells 0 SEEN, Urine Bacteria RARE, Urine Mucus 0 SEEN 11/26/21 08:15: Hgb 6.5 L, Hct 21.3 L 11/26/21 08:34: Vitamin B12 403 11/26/21 08:34: PT 19.4 H, INR 1.7 11/26/21 08:34: Sodium 137, Potassium 3.8, Chloride 102, Carbon Dioxide 30.0, Anion Gap 5, BUN 22 H, Creatinine 1.20, Estim Creat Clear Calc 53.83, Est GFR (MDRD) Af Amer 76, Est GFR (MDRD) Non-Af 63, BUN/Creatinine Ratio 18.3, Glucose 84, Calcium 8.6 Micro: Microbiology 11/25/21 19:00 Stool Stool Occult Blood (LACI) - Final Occult Blood Positive Radiography Diagnostic Testing: Radiology Impression Abdomen/Pelvis CT 11/25/21 17:46 IMPRESSION: Subcentimeter calcifications in the bilateral kidneys, likely combination of nonobstructing stones in vascular calcification. Moderate atrophy of the left kidney. Stable bilateral adrenal nodules. These are likely adenomas. Small to moderate-sized hydroceles bilaterally. Electronically Signed: Ralph Gates MD at 18:37 EDT , Chest X-Ray 11/26/21 06:15 IMPRESSION: No acute findings in the chest. COPD changes. Electronically Signed: Raymundo Zaragoza MD at 6:56 EDT , Physical Exam Narrative Patient is not a good historian, history is patchy, tangential and is not in chronological order. Patient is treated he has multiple DVT in the legs and is on warfarin for that. His hemoglobin was 13 to 14 g in July 2019, then dropped to 8.3-9 in September 2021 and now admitted with hemoglobin 4.4. He has been having black diarrhea/melena intermittently about 1-2 times per week ongoing since August 2021. Patient also stated he has 90 stents on the right leg and 2 stents in the left leg. Patient is on aspirin Plavix. He is also chronic, continuous smoker. Patient is right eye blind. He follows Dr. Castillo, vascular surgeon in [facility]. Physical exam General: Alert, Oriented x3, Cooperative, pale looking HEENT: Conjunctiva pallor. Atraumatic, PERRLA, EOMI, Normocephalic Oral: Oral mucosa dry. No Gingival or Mucosal Lesions/ Ulcerations Neck: Supple, No JVD, Negative Carotid Bruits Lungs: Air entry diminished in bilateral lung bases. Bilateral rhonchi Cardiovascular: Regular rate, Regular Rhythm, Normal S1, Normal S2, LLSB systolic murmur. Pulses are diminished in left leg, popliteal DP and PT. Delayed capillary refill Abdomen: Bowel Sounds Present, Soft, Non Tender, Non-Distended : No renal angle tenderness. No suprapubic tenderness. Extremities: No edema, Skin: No rashes, No breakdown Musculoskeletal: No Tenderness to Palpation of Joints or Extremities. Muscle strength 4/5 at left knee and hip joints. Moderate muscle atrophy of both lower extremities Neurological: Cranial nerves II-XII grossly intact, DTR 2+/4 and Symmetrical, Neuro grossly intact Psych/Mental Status: Normal Affect, Appropriate.
[2021-11-26 11:00] LABS: Troponin-I HS 13 pg/mL (3.0-78.0)
--- NOTE | 2021-11-26 11:26 | CASEMGMT ---
This RN CM to room to complete CM assessment and pt is out of the dept for EGD at this time. CM to attempt again later. SStaten RN CM
--- NOTE | 2021-11-26 11:30 | EGD_PTH ---
PATIENT: PEDRO PABLO SIERRA LOC: [facility]#:[id number] AGE/SX: 71/M ROOM: [facility] RE11/25/[address]: Dr. Ryan Guerin DO : 1950 BED: 1 DIS: 11/30/2021 SPEC #: [id number] RECD: 11/26/21 14:39 STATUS: SIDNEY RELiu #: [id number] SORIN: 11/26/21 11:[address]: Paulino Henderson DEPT: SURGICAL PATHOLOGY RECD BY: Radha Harden ENTERED: 11/29/21 08:11 SP TYPE: EGD BIOPSY OTHR DR: MD Dr. Fran Shah MD Dr. Mark Tereletsky, DO Dr. Prakash Chand, MD Dr. Rahsaan Friend, DO Tissues: Esophagus, NOS Procedures: Special Stain Group II Surgery Specimen Level IV Alcian Blue/PAS (control) Comments: @ Ordering doctor for SUIV edited from to @ by JF at 11/29/21 0855 @ Submitting doctor edited from to @ by ALMASOD at 11/29/21 0855 HEADER OPERATION: [place] [place] PRE-OP DIAGNOSIS: Anemia, GI bleed TISSUE SUBMITTED: Biopsy distal esophagus MICROSCOPIC DIAGNOSIS Distal esophagus, biopsy: Fragments of gastroesophageal mucosa with mild chronic inflammation. Intestinal metaplasia (goblet cell metaplasia) not identified. See comment. HARRIS:em 11/30/2021 COMMENT Alcian blue/PAS stain with matched control is used in the evaluation of the specimen. MICROSCOPIC DESCRIPTION Slides are reviewed. GROSS DESCRIPTION Received in fixative is one container labeled with the patient's name and designated biopsy distal esophagus. The specimen consists of multiple irregular fragments of light coley soft tissue that in aggregate measure 1 x 0.3 x 0.1 cm. The specimen is totally submitted in one cassette. / SJ:em 11/29/2021 TC:3 CPT: 35054, 07727
--- NOTE | 2021-11-26 12:28 | OP.EGD_ITS ---
Patient Name: Miles Sifuentes Procedure Date: 11/26/2021 12:07 PM Date of : 1950 Age: 71 Procedure: Upper GI endoscopy Indications: Acute post hemorrhagic anemia, Iron deficiency anemia Providers: Paulino Henderson DO Medicines: Monitored Anesthesia Care Patient Profile: This is a 71 year old male. Refer to note in patient chart for documentation of history and physical. Patient has symptoms of acute dyspepsia. Complications: No immediate complications. Procedure: Pre-Anesthesia Assessment: - Prior to the procedure, a History and Physical was performed, and patient medications and allergies were reviewed. The risks and benefits of the procedure and the sedation options and risks were discussed with the patient. All questions were answered and informed consent was obtained. Patient identification and proposed procedure were verified by the physician in the pre-procedure area. Mental Status Examination: alert and oriented. Airway Examination: normal oropharyngeal airway and neck mobility. Respiratory Examination: clear to auscultation. CV Examination: normal. Prophylactic Antibiotics: The patient does not require prophylactic antibiotics. Prior Anticoagulants: The patient has taken no previous anticoagulant or antiplatelet agents. After reviewing the risks and benefits, the patient was deemed in satisfactory condition to undergo the procedure. The anesthesia plan was to use moderate sedation / analgesia (conscious sedation). Immediately prior to administration of medications, the patient was re-assessed for adequacy to receive sedatives. The heart rate, respiratory rate, oxygen saturations, blood pressure, adequacy of pulmonary ventilation, and response to care were monitored throughout the procedure. The physical status of the patient was re-assessed after the procedure. After obtaining informed consent, the endoscope was passed under direct vision. Throughout the procedure, the patient's blood pressure, pulse, and oxygen saturations were monitored continuously. The gastroscope was introduced through the mouth, and advanced to the second part of duodenum. The upper GI endoscopy was accomplished without difficulty. The patient tolerated the procedure well. Scope In: 12:19:35 PM Scope Out: 12:22:37 PM Total Procedure Duration Time 0 hours 3 minutes 2 seconds Findings: The Z-line was irregular and was found 39 cm from the incisors. Biopsies were taken with a cold forceps for histology. Verification of patient identification for the specimen was done. Estimated blood loss was minimal. A medium-sized hiatal hernia was present. The entire examined stomach was normal. The second portion of the duodenum was normal. Impression: - Z-line irregular, 39 cm from the incisors. Biopsied. - Medium-sized hiatal hernia. - Normal stomach. - Normal second portion of the duodenum. Recommendation: - Written discharge instructions were provided to the patient. - The signs and symptoms of potential delayed complications were discussed with the patient. - Patient has a contact number available for emergencies. - Return to normal activities tomorrow. - Resume previous diet. - Continue present medications. - Await pathology results. Procedure Code(s): --- Professional --- 41391, Esophagogastroduodenoscopy, flexible, transoral; with biopsy, single or multiple CPT copyright 2017 [employer]. All rights reserved. The codes documented in this report are preliminary and upon pullboat engineer review may be revised to meet current compliance requirements. Paulino Henderson DO 11/26/2021 12:27:29 PM This report has been signed electronically. Number of Addenda: 1 Note Initiated On: 11/26/2021 12:07 PM Addendum Number: 1 Addendum Date: 03/22/2022 6:27:21 AM MAC was used as sedation for this procedure. Paulino Henderson DO 03/22/2022 6:27:26 AM This report has been signed electronically.
--- NOTE | 2021-11-26 12:28 | OP.CCLET_ITS ---
03/22/2022 Daija Douglas [address] [place] [address] Re : Upper GI endoscopy procedure for Miles Sifuentes Dear Dr. Douglas This procedure was performed on Friday, November 26, 2021. My impressions and recommendations are as follows: Impressions : - Z-line irregular, 39 cm from the incisors. Biopsied. - Medium-sized hiatal hernia. - Normal stomach. - Normal second portion of the duodenum. Recommendations : - Written discharge instructions were provided to the patient. - The signs and symptoms of potential delayed complications were discussed with the patient. - Patient has a contact number available for emergencies. - Return to normal activities tomorrow. - Resume previous diet. - Continue present medications. - Await pathology results. My findings are described in the full procedure note, which is enclosed. If I can be of further assistance, please feel free to contact me at . Sincerely, Paulino Henderson, 11/26/2021 12:27:29 PM This report has been signed electronically.
[2021-11-26 12:39] LABS: Pathologist Review Reviewed
[2021-11-26 12:39] LABS: Pathologist Review Reviewed
[2021-11-26] MEDS: Bisacodyl 5 MG Tablet 20 MG PO (13:27)
[2021-11-26] MEDS: Finasteride 5 MG Tablet PO (13:27)
[2021-11-26] MEDS: Sertraline 100 MG Tablet PO (13:28)
[2021-11-26] MEDS: NIFEdipine 90 MG Tablet PO (13:28)
--- NOTE | 2021-11-26 13:37 | PCM.PN.HOSP ---
Documented by User: Rashawn SALDIVAR 11/26/21 13:52 Subjective Subjective Patient is a 71-year-old male comfortably resting in bed, alert and orient x3. Patient reports some abdominal discomfort and reports melanotic stools on admission. Does not appear in acute distress. Objective Data Objective Data Vital Signs: Vital Signs Temp Pulse Resp BP Pulse Ox 97.5 F L 67 16 140/56 H 96 11/26/21 12:45 11/26/21 13:27 11/26/21 12:45 11/26/21 13:27 11/26/21 12:45 Oxygen Flow Rate (L/min) 2 Oxygen Delivery Method Nasal Cannula Weight: 157 lb 13.616 oz Body Mass Index (BMI) 24.0 Intake & Output: Intake and Output for Last 24 Hours 11/24/21 11/25/21 11/26/21 23:59 23:59 23:59 Intake Total 25 / 25 1010 / 1010 Output Total 300 / 300 2900 / 2900 Balance -275 / -275 -1890 / -1890 Lab / Micro Data Result Diagrams: 11/26/21 08:15 11/26/21 08:34 Labs: Laboratory Results - last 24 hr 11/25/21 17:00: PT 49.2 H, INR 5.4 H* 11/25/21 17:50: WBC 7.3, RBC 2.34 L, Hgb 4.4 L*, Hct 16.8 L, MCV 71.8 L, MCH 18.8 L, MCHC 26.2 L, RDW Std Deviation 48.2 H, RDW Coeff of Aly 18.6 H, Plt Count 421, MPV 10.7, Immature Gran % (Auto) 0.400, Neut % (Auto) 77.6 H, Lymph % (Auto) 15.4 L, [place] % (Auto) 5.6, Eos % (Auto) 0.3, Baso % (Auto) 0.7, Absolute Neuts (auto) 5.7, Absolute Lymphs (auto) 1.13, Nucleated RBC % 0.5, Differential Comment SCANNED, Diff Path Review Reviewed, Hypochromasia 1+ 11/25/21 17:50: Sodium 133 L, Potassium 4.2, Chloride 101, Carbon Dioxide 23.0, Anion Gap 9, BUN 24 H, Creatinine 1.44 H, Estim Creat Clear Calc 44.86, Est GFR (MDRD) Af Amer 62, Est GFR (MDRD) Non-Af 51 L, BUN/Creatinine Ratio 16.7, Glucose 113 H, Calcium 8.2 L, Total Bilirubin 0.20, AST 10 L, ALT 20, Alkaline Phosphatase 54, Total Protein 6.8, Albumin 3.7, Globulin 3.1, Albumin/Globulin Ratio 1.2 11/25/21 17:50: Ferritin 5 L, Folate 12.90 11/25/21 17:50: Iron 10 L, TIBC 466 H, Iron Saturation 2.1 L 11/25/21 18:17: WBC 7.1, RBC 2.36 L, Hgb 4.4 L*, Hct 16.9 L, MCV 71.6 L, MCH 18.6 L, MCHC 26.0 L, RDW Std Deviation 48.7 H, RDW Coeff of Aly 18.6 H, Plt Count 398, MPV 10.2, Immature Gran % (Auto) 0.600, Neut % (Auto) 80.9 H, Lymph % (Auto) 11.4 L, Pick[place] % (Auto) 6.3, Eos % (Auto) 0.1, Baso % (Auto) 0.7, Absolute Neuts (auto) 5.8, Absolute Lymphs (auto) 0.81 L, Nucleated RBC % 0.6, Differential Comment SCANNED, Diff Path Review Reviewed, Hypochromasia 1+ 11/25/21 18:17: Retic Count 2.10 H, Immature Retic Fraction 25.00 H, Retic Hgb Equivalent 15.0 L 11/25/21 19:02: Blood Type O POSITIVE, Antibody Screen NEGATIVE 11/25/21 19:02: Crossmatch See Detail 11/25/21 19:27: Urine Color Straw, Urine Clarity Clear, Urine pH 7.0, Ur Specific [place] 1.010, Urine Protein Negative, Urine Glucose (UA) Normal, Urine Ketones Negative, Urine Occult Blood 50 H, Urine Nitrite Negative, Urine Bilirubin Negative, Urine Urobilinogen Normal, Ur Leukocyte Esterase Negative, Urine RBC 5-10 SEEN, Urine WBC 0 SEEN, Ur Squamous Epith Cells 0 SEEN, Urine Bacteria RARE, Urine Mucus 0 SEEN 11/26/21 08:15: Hgb 6.5 L, Hct 21.3 L 11/26/21 08:34: Vitamin B12 403 11/26/21 08:34: PT 19.4 H, INR 1.7 11/26/21 08:34: Sodium 137, Potassium 3.8, Chloride 102, Carbon Dioxide 30.0, Anion Gap 5, BUN 22 H, Creatinine 1.20, Estim Creat Clear Calc 53.83, Est GFR (MDRD) Af Amer 76, Est GFR (MDRD) Non-Af 63, BUN/Creatinine Ratio 18.3, Glucose 84, Calcium 8.6 11/26/21 08:34: Troponin I High Sens 13 Micro: Microbiology 11/25/21 19:00 Stool Stool Occult Blood (LACI) - Final Occult Blood Positive Radiography Diagnostic Testing: Radiology Impression Abdomen/Pelvis CT 11/25/21 17:46 IMPRESSION: Subcentimeter calcifications in the bilateral kidneys, likely combination of nonobstructing stones in vascular calcification. Moderate atrophy of the left kidney. Stable bilateral adrenal nodules. These are likely adenomas. Small to moderate-sized hydroceles bilaterally. Electronically Signed: Ralph Gates MD at 18:37 EDT , Chest X-Ray 11/26/21 06:15 IMPRESSION: No acute findings in the chest. COPD changes. Electronically Signed: Raymundo Zaragoza MD at 6:56 EDT , Physical Exam Const alert, oriented x3 and no apparent distress HEENT head/scalp atraumatic and moist oral mucous membranes Head and Scalp: normocephalic Eyes PERRL and EOMs intact bilaterally Neck no lymphadenopathy, supple and no JVD Resp normal respiratory effort, no retractions and no use of accessory muscles Cardio regular rate, regular rhythm and no JVD GI normal to inspection, nondistended, normoactive bowel sounds and soft to palpation Extremity normal to inspection, full ROM and no clubbing, cyanosis or edema Skin no rashes or lesions noted, no wounds and skin turgor normal Neuro CN's II-XII intact bilaterally Psych affect normal Assessment & Plan Assessment/Plan (1) ABLA (acute blood loss anemia): PLAN: Day 1 Discharge planning: To be determined. 1) acute on chronic blood loss anemia Hemoglobin currently 6.5 after being transfused 2 units of PRBCs on 11/25/2021. Patient underwent EGD, results as above. Patient is to follow-up with Dr. Henderson as an outpatient. Will transfuse 1 more unit of PRBCs and continue to trend CBC. Continue to hold aspirin, Plavix and Coumadin. 2) iron deficiency anemia Iron studies reveal iron deficiency anemia, will initiate p.o. iron supplementation as well as above. 3) FLEX Resolved, creatinine currently 1.2, will continue to monitor. Avoid nephrotoxic's. 4) hyponatremia Resolved. Sodium currently 137, will continue to monitor. 5) HTN Stable, continue home nifedipine and metoprolol. Hold home hydrochlorothiazide. DVT prophylaxis - SCDs, chemoprophylaxis not indicated due to #1. Patient seen by Rashawn Corona PA-C, under the supervision of Dr. Maynard. Time spent on patient care: 10 minutes. Documented by User: Dr. Brody Maynard MD 11/26/21 16:01 Objective Data Lab / Micro Data Result Diagrams: 11/26/21 08:15 11/26/21 08:34 Physical Exam Narrative Patient is not a good historian, history is patchy, tangential and is not in chronological order. Patient is treated he has multiple DVT in the legs and is on warfarin for that. His hemoglobin was 13 to 14 g in July 2019, then dropped to 8.3-9 in September 2021 and now admitted with hemoglobin 4.4. He has been having black diarrhea/melena intermittently about 1-2 times per week ongoing since August 2021. Patient also stated he has 9 stents on the right leg and 2 stents in the left leg. Patient is on aspirin Plavix. He is also chronic, continuous smoker. Patient is right eye blind. He follows Dr. Castillo, vascular surgeon in [facility]. Physical exam General: Alert, Oriented x3, Cooperative, pale looking HEENT: Conjunctiva pallor. Atraumatic, PERRLA, EOMI, Normocephalic Oral: Oral mucosa dry. No Gingival or Mucosal Lesions/ Ulcerations Neck: Supple, No JVD, Negative Carotid Bruits Lungs: Air entry diminished in bilateral lung bases. Bilateral rhonchi Cardiovascular: Regular rate, Regular Rhythm, Normal S1, Normal S2, LLSB systolic murmur. Pulses are diminished in left leg, popliteal DP and PT. Delayed capillary refill Abdomen: Bowel Sounds Present, Soft, Non Tender, Non-Distended : No renal angle tenderness. No suprapubic tenderness. Extremities: No edema, Skin: No rashes, No breakdown Musculoskeletal: No Tenderness to Palpation of Joints or Extremities. Muscle strength 4/5 at left knee and hip joints. Moderate muscle atrophy of both lower extremities Neurological: Cranial nerves II-XII grossly intact, DTR 2+/4 and Symmetrical, Neuro grossly intact Psych/Mental Status: Normal Affect, Appropriate. Assessment & Plan Assessment/Plan (1) ABLA (acute blood loss anemia): PLAN: This patient was seen in conjunction with YARIEL Silver. I have independently interviewed and examined the patient and reviewed pertinent history, examination findings, laboratory and plan of management. I have reviewed the note and agree with the documented findings with the few additional points. In brief, patient is admitted for severe anemia along with melena. Patient also nauseated. Patient has chronic productive cough with history of COPD and chronic cigarette/tobacco use. 1. Acute on chronic blood loss anemia, iron deficiency anemia due to GI blood loss on 3 antiplatelet/anticoagulation medication: Patient had 2 units of PRBC transfusion hemoglobin went up to 6.5 from 4.4. Monitor PRBC ordered. GI consulted. Patient had EGD done reported medium size hiatus hernia, normal stomach. Normal second portion of duodenum. Aspirin, Plavix and warfarin held. 2. Severe peripheral arterial disease and recurrent DVT of lower extremities: he had 9 stents on the right leg and 2 stents in the left leg. Patient is on aspirin Plavix and Coumadin. He follows Dr. Castillo, vascular surgeon in [facility]. 3. COPD he is also chronic, continuous smoker. 4. FLEX: Resolved. Creatinine 1.2. Avoid nephrotoxins. 5. Acute hyponatremia, resolved. Repeat sodium 137. Hold HCTZ 6. Other comorbidities include hypertension, on nifedipine and metoprolol. Patient is right eye blind. I have discussed my assessment with YARIEL Silver and orders have been reviewed. Total time of the visit including total time spent in counseling or coordination of care, (more than 50% of the total time, spent in obtaining medical information from nurses and other ancillary care providers,explaining to the patient about labs, imaging, diagnosis and management), discussion with biztalk consultant, review of labs and imaging is 45 minutes. I spent 30 minutes and Rashawn SALDIVAR spent 15 minutes Charges/Coding Visit Charges Inpatient E&M: 21385 Subs Hosp L3
--- NOTE | 2021-11-26 13:59 | CASEMGMT ---
SEYMOUR BOLES assessment: Face to Face with patient for initial transition planning/care coordination assessment. SEYMOUR BOLES introduced self and role at [facility], pt voices understanding and consents to assessment. Pt is sitting up in chair in on distress on 2L nc. Pt is A/Ox4 and answers all questions appropriately. Care providers, pharmacy, and demographics verified. Presentation: Pt presented for possible FB left in after 'ripped clark out' in August Admitting dx: Acute blood loss anemia PCP: Misael Specialists: estuardo Villa at [facility]; surgeon Justino Preferred Pharmacy: [facility] Insurance: [facility] Prescription Benefit: AARPM[employer] Living Will/HPOA: Pt has LW/HPOA and is aware that they are on file at [facility]. Pt's ex-, Givoana Bhakta, is HPOA. LNOK: Giovana Bhakta, ex-; Michelle Montana, daughter Living Arrangements: Pt lives alone in mobile home and states no concerns at home. Pt is independent with ADL's but states needs help with cleaning and states has not has aides at home in awhile. Transportation: Pt does not drive and states no transportation concerns. DME/HHC: Pt has the following DME: cane, shower chair, nebulizer, medical alert, and home oxygen concentrator/tanks thru [facility] that pt states he uses as needed. Pt denies need for any further DME. Pt has [facility] for SN. HARDIK order and clinicals faxed to [place] and green sheet left on chart for [facility]. Pt states no hx of SNF. [facility] and states CM is having trouble getting aides for pt. Pt does get 14 meals/week. Pt states no concerns with going home at time of discharge. Pt is retired. Pt smokes a pack of cigarettes daily and does not drink ETOH. Pt voices no further concerns/needs. CM to follow for any further discharge planning/needs. Advised pt to ask for CM if any further questions/concerns/needs arise, voices understanding. Pt Goal: Home Plan: [place] [place]OL[facility]
--- NOTE | 2021-11-26 15:00 | NURSING ---
pt refusing tele monitor at this time. will try to reapply later.
[2021-11-26] MEDS: Ensure Clear 120 ML Liquid PO ×2 (17:19→21:28)
[2021-11-26] MEDS: Acetaminophen 325 MG Tablet 650 MG PO (17:19)
[2021-11-26] MEDS: Electrolyte Solution/Peg's 4000 ML PO (18:04)
[2021-11-26] MEDS: Magnesium Citrate 300 ML PO (19:53)
[2021-11-27] VITALS (13 sets, daily range): BP systolic 138–160; BP diastolic 57–65; PULSE 61–82; RESP 16–20; TEMP 36.5–36.6; O2SAT 86–97; BMI 24.0
[2021-11-27 06:08] LABS: Absolute Neutrophil Count 4.2 X10^3/uL (2.0-7.7); Basophil# 0.08 X10^3/uL; Basophil% 1.3 % (0-1); Eosinophil# 0.18 X10^3/uL; Eosinophils% 2.9 % (0-5); Hematocrit 25.3 % (40-54); Hemoglobin 7.7 g/dL (13.0-16.5); Lymphocyte % 20.8 % (19-41); Mean Corp Hgb Conc 30.4 g/dL (32-36); Mean Corpuscular Hgb 23.7 pg (27.0-32.0); Mean Corpuscular Volume 77.8 fL (80-94); Mean Platelet Vol. 10.3 fl (6.2-12.0); Monocyte# 0.49 X10^3/uL; Monocyte% 7.9 % (0-10); NRBC Flagged by Analyzer 0 % (0-5); Neutrophil # 4.16 X10^3/uL (2.7-7.7); Neutrophil % 66.6 % (47-70); Platelet Count 288 K/mm3 (150-450); RBC Distribution Width CV 19.7 % (11.6-14.6); RBC Distribution Width SD 55.3 fl (35.1-43.9); Red Blood Count 3.25 M/mm3 (4.6-6.2); White Blood Count 6.2 K/mm3 (4.4-11.0)
[2021-11-27 06:29] LABS: International Normalized Ratio 1.3; Prothrombin Time (Protime)PT. 16.1 SECONDS (11.7-14.9)
[2021-11-27 06:35] LABS: Anion Gap 5 (5-15); BUN 13 mg/dL (7-18); BUN/Creat Ratio 13.1 RATIO (10-20); Calcium,Total 8.4 mg/dL (8.5-10.1); Chloride 105 mmol/L (98-107); Creatinine, Serum 0.99 mg/dL (0.70-1.30); EST Glomerular Filtration Rate 79 mL/min (>60); Est Glom Filt Rate - Afr Amer 95 mL/min (>60); Estimated Creatinine Clearance 65.25 ml/min; Glucose 85 mg/dL (74-106); Potassium 3.3 mmol/L (3.5-5.1); Sodium Level 137 mmol/L (136-145)
--- NOTE | 2021-11-27 07:47 | NURSING ---
Pt taken to endosocopy for colonoscopy via bed by BUS WASHER. Pt 94% on room air.
--- NOTE | 2021-11-27 09:50 | NURSING ---
Pt back for colonoscopy
--- NOTE | 2021-11-27 11:07 | NURSING ---
Pt not given AM medication at this time as patient says he wants to wait. Will attempt to give medications later.
--- NOTE | 2021-11-27 11:08 | PN.HOSP_ITS ---
Objective Data Objective Data Vital Signs: Vital Signs Temp Pulse Resp BP Pulse Ox 97.9 F 65 17 159/62 H 92 11/27/21 09:51 11/27/21 09:51 11/27/21 09:51 11/27/21 09:51 11/27/21 09:51 Oxygen Flow Rate (L/min) 2 Oxygen Delivery Method Nasal Cannula Weight: 157 lb 13.616 oz Body Mass Index (BMI) 24.0 Intake & Output: Intake and Output for Last 24 Hours 11/25/21 11/26/21 11/27/21 23:59 23:59 23:59 Intake Total 1760 / 1760 110 / 110 Output Total 300 / 300 3075 / 3075 Balance -275 / -275 -1315 / -1315 110 / 110 Lab / Micro Data Result Diagrams: 11/27/21 05:05 11/27/21 05:05 Labs: Laboratory Results - last 24 hr 11/25/21 17:50: Diff Path Review Reviewed 11/25/21 18:17: Diff Path Review Reviewed 11/25/21 19:02: Crossmatch See Detail 11/27/21 05:05: PT 16.1 H, INR 1.3 11/27/21 05:05: WBC 6.2, RBC 3.25 L, Hgb 7.7 L, Hct 25.3 L, MCV 77.8 L D, MCH 23.7 L, MCHC 30.4 L D, RDW Std Deviation 55.3 H, RDW Coeff of Aly 19.7 H, Plt Count 288, MPV 10.3, Immature Gran % (Auto) 0.500, Neut % (Auto) 66.6, Lymph % (Auto) 20.8, Posey % (Auto) 7.9, Eos % (Auto) 2.9, Baso % (Auto) 1.3 H, Absolute Neuts (auto) 4.2, Absolute Lymphs (auto) 1.30, Nucleated RBC % 0 11/27/21 05:05: Sodium 137, Potassium 3.3 L, Chloride 105, Carbon Dioxide 27.0, Anion Gap 5, BUN 13, Creatinine 0.99, Estim Creat Clear Calc 65.25, Est GFR (MDRD) Af Amer 95, Est GFR (MDRD) Non-Af 79, BUN/Creatinine Ratio 13.1, Glucose 85, Calcium 8.4 L Micro: Microbiology 11/25/21 19:00 Stool Stool Occult Blood (LACI) - Final Occult Blood Positive Physical Exam Narrative Seen and examined. Patient had colonoscopy today. Patient is irritable. He mentioned that he has tube in his left side, some surgeon treated. His history is not concrete, chronological order and patchy. He cannot explain his symptoms. I tried to get the phone number of vascular surgeon Dr. Villa but he said he did with his ex-, Kaleb who is not available now but he can get it in the evening. Patient is also retold with the nurses Physical exam General: Alert, Oriented x3, Cooperative, pale looking HEENT: Conjunctiva pallor. Atraumatic, PERRLA, EOMI, Normocephalic Oral: Oral mucosa moist. No Gingival or Mucosal Lesions/ Ulcerations Neck: Supple, No JVD, Negative Carotid Bruits Lungs: Air entry diminished in bilateral lung bases. Bilateral rhonchi Cardiovascular: Regular rate, Regular Rhythm, Normal S1, Normal S2, LLSB systolic murmur. Pulses are diminished in left leg, popliteal DP and PT. Delayed capillary refill Abdomen: Bowel Sounds Present, Soft, Non Tender, Non-Distended : No renal angle tenderness. No suprapubic tenderness. Extremities: No edema, Skin: Surgical scar over the abdomen. Surgical scar over the left thigh and pelvic area anteriorly Musculoskeletal: No Tenderness to Palpation of Joints or Extremities. Muscle strength 4/5 at left knee and hip joints. Moderate muscle atrophy of both lower extremities Neurological: Cranial nerves II-XII grossly intact, DTR 2+/4 Psych/Mental Status: Irritable. Assessment & Plan Assessment/Plan (1) ABLA (acute blood loss anemia): PLAN: The patient is admitted for severe anemia along with melena. Patient also nauseated. Patient has chronic productive cough with history of COPD and chronic cigarette/tobacco use. 1. Acute on chronic blood loss anemia, iron deficiency anemia due to GI blood loss on 3 antiplatelet/anticoagulation medication: Patient had 2 units of PRBC transfusion hemoglobin went up to 6.5 from 4.4. Monitor PRBC ordered. GI consulted. Patient had EGD done on 11/26 reported medium size hiatus hernia, normal stomach. Normal second portion of duodenum. Aspirin, Plavix and warfarin held. 11/27: Hemoglobin 7.7. After 3 units of PRBC transfusion and 3 units of FFP. Iron work-up shows iron deficiency anemia with iron saturation 2.1% ferritin 5. IV iron ordered patient went for colonoscopy today. Hemorrhoids, 3 1 to 2 mm polyp in sigmoid colon, cecum removed with hot snare. Single bleeding ascending colonic angiodysplastic treated with APC. Discussed with GI DrFlavio Henderson. Edilma johns PPI every 12 hourly. Agreed to start warfarin 6 mg daily as patient is high risk for thromboembolism admission below 2. Severe peripheral arterial disease and recurrent DVT of lower extremities: he had 9 stents on the right leg and 2 stents in the left leg. Patient is on aspirin Plavix and Coumadin. He follows Dr. Castillo, vascular surgeon in [facility]. As hemoglobin is still low 7.7, will hold aspirin and Plavix. Patient does not telephone number office vascular surgeon but said his ex- has it and she is not available right now but he might get it in the evening. Patient has last stent put more than a year ago as per the patient. 3. COPD he is also chronic, continuous smoker. 4. FLEX: Resolved. Creatinine 1.2. Avoid nephrotoxins. Mild hypokalemia, potassium getting replaced 5. Acute hyponatremia, resolved. Repeat sodium 137. Hold HCTZ 6. Other comorbidities include hypertension, on nifedipine and metoprolol. Patient is right eye blind. Total time of the visit including total time spent in counseling or coordination of care, (more than 50% of the total time, spent in obtaining medical information from nurses and other ancillary care providers,explaining to the patient about labs, imaging, diagnosis and management), , review of labs and nicho ging is 40 minutes. Charges/Coding Visit Charges Inpatient E&M: 47092 Subs Hosp L3
[2021-11-27] MEDS: Lidocaine 5% Patch 1 PATCH TOPICAL (11:19)
[2021-11-27] MEDS: NIFEdipine 90 MG Tablet PO (11:22)
[2021-11-27] MEDS: Metoprolol Tartrate 25 MG Tablet 12.5 MG PO ×2 (11:22→21:58)
[2021-11-27] MEDS: Sertraline 100 MG Tablet PO (11:23)
[2021-11-27] MEDS: carBAMazepine 200 MG Tablet PO ×2 (11:23→22:06)
[2021-11-27] MEDS: Finasteride 5 MG Tablet PO (11:23)
[2021-11-27] MEDS: Acetaminophen 325 MG Tablet 650 MG PO ×2 (11:27→21:53)
[2021-11-27] MEDS: Ipratropium/Albuterol Sulfate 3 ML AMPUL.NEB INHALATION ×3 (11:29→19:15)
[2021-11-27] MEDS: Ferrous Sulfate 325 MG Tablet PO (11:52)
[2021-11-27 14:41] LABS: Anion Gap 8 (5-15); BUN 10 mg/dL (7-18); BUN/Creat Ratio 8.7 RATIO (10-20); Calcium,Total 8.1 mg/dL (8.5-10.1); Chloride 106 mmol/L (98-107); Creatinine, Serum 1.15 mg/dL (0.70-1.30); EST Glomerular Filtration Rate 66 mL/min (>60); Est Glom Filt Rate - Afr Amer 80 mL/min (>60); Estimated Creatinine Clearance 56.17 ml/min; Glucose 174 mg/dL (74-106); Potassium 3.5 mmol/L (3.5-5.1); Sodium Level 138 mmol/L (136-145)
[2021-11-27] MEDS: Potassium Chloride Oral Tablet 20 MEQ 40 MEQ PO (14:57)
--- NOTE | 2021-11-27 15:18 | CASEMGMT ---
Social Work Based on pt's PT/OT evaluations, it seems pt may benefit from rehab at a custodial facility. SW met w/pt in room, spoke w/him about going to rehab from the hospital versus going home. Initially pt spoke about some difficult experiences he's had in the past at nursing homes. However, after he spoke about this he did state if he does not get stronger he knows he may need to go. NATHANIEL provided to pt a list of custodial facilities in pt's preferred geographic area that take his insurance, complete with quality and resource use data. NATHANIEL asked pt to review the list for where he may consider going, and that SW Monday will follow up w/him. Pt states understanding. Plan: TBD, pt considering possible SNF placement for rehab
[2021-11-27] MEDS: Ensure Clear 120 ML Liquid PO ×2 (17:24→21:59)
[2021-11-27] MEDS: Morphine 2 MG/ML Syringe IV ×2 (17:32→21:53)
[2021-11-27] MEDS: 0.9% Saline Lock 10 ML Syringe IV (17:32)
--- NOTE | 2021-11-27 19:40 | NURSING ---
Discussed with patient therapies and monitoring that he has been refusing throughout the day. Patient states that he will not wear the heart monitor tonight and verbalizes that he understands this may delay care and can result in bad outcomes for his personal health. Patient states I am willing to accept that, but the truth is I can't sleep with that thing on. Will continue to monitor patient. pediatric dermatologist remains off at this time as per patients wishes.
[2021-11-27] MEDS: MELATONIN 3 MG TABLET PO (21:53)
[2021-11-27] MEDS: Mirtazapine 15 MG Tablet PO (21:57)
[2021-11-27] MEDS: Tamsulosin HCl 0.4 MG Capsule PO (21:57)
[2021-11-27] MEDS: Atorvastatin Calcium 40 MG Tablet PO (21:58)
[2021-11-28] VITALS (9 sets, daily range): BP systolic 139–172; BP diastolic 55–77; PULSE 60–83; RESP 14–24; TEMP 36.2–36.6; O2SAT 91–97
[2021-11-28 06:00] LABS: Absolute Lymphocyte Count 1.22 X10^3/uL (0.83-4.51); Basophil# 0.05 X10^3/uL; Basophil% 0.7 % (0-1); Eosinophil# 0.03 X10^3/uL; Eosinophils% 0.4 % (0-5); Hematocrit 23.4 % (40-54); Lymphocyte # 1.22 X10^3/ul (0.83-4.51); Lymphocyte % 17.5 % (19-41); Mean Corp Hgb Conc 29.9 g/dL (32-36); Mean Corpuscular Hgb 23.7 pg (27.0-32.0); Mean Corpuscular Volume 79.3 fL (80-94); Mean Platelet Vol. 10.7 fl (6.2-12.0); Monocyte# 0.59 X10^3/uL; Monocyte% 8.5 % (0-10); NRBC Flagged by Analyzer 0.7 % (0-5); Neutrophil # 5.02 X10^3/uL (2.7-7.7); POSITIVE MORPHOLOGY YES; Platelet Count 257 K/mm3 (150-450); RBC Distribution Width CV 20.5 % (11.6-14.6); RBC Distribution Width SD 59.4 fl (35.1-43.9); Red Blood Count 2.95 M/mm3 (4.6-6.2)
[2021-11-28 06:05] LABS: Differential Indicated SCAN CRITERIA MET
[2021-11-28 06:17] LABS: International Normalized Ratio 1.2; Prothrombin Time (Protime)PT. 15.2 SECONDS (11.7-14.9)
[2021-11-28 06:28] LABS: Anion Gap 5 (5-15); BUN 13 mg/dL (7-18); BUN/Creat Ratio 12.7 RATIO (10-20); Calcium,Total 7.9 mg/dL (8.5-10.1); Chloride 109 mmol/L (98-107); Creatinine, Serum 1.02 mg/dL (0.70-1.30); EST Glomerular Filtration Rate 76 mL/min (>60); Est Glom Filt Rate - Afr Amer 92 mL/min (>60); Estimated Creatinine Clearance 63.33 ml/min; Glucose 106 mg/dL (74-106); Potassium 3.7 mmol/L (3.5-5.1); Sodium Level 140 mmol/L (136-145)
[2021-11-28 06:39] LABS: Differential Comment SCANNED; Hypochromasia 2+
[2021-11-28 06:40] LABS: Anisocytosis 1+; Macrocytosis RARE; Microcytosis 1+; Ovalocyte 1+; Polychromasia RARE
--- NOTE | 2021-11-28 07:48 | PN.HOSP_ITS ---
Subjective Subjective Follow-up for severe anemia, PAD multiple comorbidities Patient is still in severe anemia. Chronic tingling in the legs. Objective Data Objective Data Vital Signs: Vital Signs Temp Pulse Resp BP Pulse Ox 97.9 F 60 14 139/55 H 94 11/28/21 03:09 11/28/21 03:09 11/28/21 03:09 11/28/21 03:09 11/28/21 03:09 Oxygen Flow Rate (L/min) 2 Oxygen Delivery Method Room Air Weight: 157 lb 13.616 oz Body Mass Index (BMI) 24.0 Intake & Output: Intake and Output for Last 24 Hours 11/26/21 11/27/21 11/28/21 23:59 23:59 23:59 Intake Total 1760 / 1760 1290 / 1690 700 / 700 Output Total 3075 / 3075 450 / 750 500 / 500 Balance -1315 / -1315 840 / 940 200 / 200 Lab / Micro Data Result Diagrams: 11/28/21 05:15 11/28/21 05:15 Labs: Laboratory Results - last 24 hr 11/27/21 14:15: Sodium 138, Potassium 3.5, Chloride 106, Carbon Dioxide 24.0, Anion Gap 8, BUN 10, Creatinine 1.15, Estim Creat Clear Calc 56.17, Est GFR (MDRD) Af Amer 80, Est GFR (MDRD) Non-Af 66, BUN/Creatinine Ratio 8.7 L, Glucose 174 H, Calcium 8.1 L 11/28/21 05:15: WBC 7.0, RBC 2.95 L, Hgb 7.0 L, Hct 23.4 L, MCV 79.3 L, MCH 23.7 L, MCHC 29.9 L, RDW Std Deviation 59.4 H, RDW Coeff of Aly 20.5 H, Plt Count 257, MPV 10.7, Immature Gran % (Auto) 0.900, Neut % (Auto) 72.0 H, Lymph % (Auto) 17.5 L, [place] % (Auto) 8.5, Eos % (Auto) 0.4, Baso % (Auto) 0.7, Absolute Neuts (auto) 5.0, Absolute Lymphs (auto) 1.22, Nucleated RBC % 0.7, Differential Comment SCANNED, Polychromasia RARE, Hypochromasia 2+, Anisocytosis 1+, Microcytosis 1+, Macrocytosis RARE, Ovalocytes 1+ 11/28/21 05:15: Sodium 140, Potassium 3.7, Chloride 109 H, Carbon Dioxide 26.0, Anion Gap 5, BUN 13, Creatinine 1.02, Estim Creat Clear Calc 63.33, Est GFR (MDRD) Af Amer 92, Est GFR (MDRD) Non-Af 76, BUN/Creatinine Ratio 12.7, Glucose 106, Calcium 7.9 L, Magnesium 2.0 11/28/21 05:15: PT 15.2 H, INR 1.2 11/28/21 05:15: Phosphorus 2.0 L Micro: Microbiology 11/25/21 19:00 Stool Stool Occult Blood (LACI) - Final Occult Blood Positive Physical Exam Narrative Seen and examined. Patient had colonoscopy today. The patient is still irritable. He said he did not sleep for last 3 days and wants to sleep. Feels tingling in the He does not want to be bothered. I called his ex- Mrs. Giovana Bhakta but should not bean picker machine operator the phone and no voice message set up. I also tried to call Dr. Ryan Villa, [facility] Surgeon. Physical exam General: Alert, Oriented x3, Cooperative, pale looking, irritable HEENT: Conjunctiva pallor. Atraumatic, PERRLA, EOMI, Normocephalic Oral: Oral mucosa moist. No Gingival or Mucosal Lesions/ Ulcerations Neck: Supple, No JVD, Negative Carotid Bruits Lungs: Air entry diminished in bilateral lung bases. Bilateral rhonchi Cardiovascular: Regular rate, Regular Rhythm, Normal S1, Normal S2, LLSB systolic murmur. Pulses are diminished in left leg, popliteal DP and PT. De layed capillary refill Abdomen: Bowel Sounds Present, Soft, Non Tender, Non-Distended : No renal angle tenderness. No suprapubic tenderness. Extremities: No edema, Skin: Surgical scar over the abdomen. Surgical scar over the left thigh and pelvic area anteriorly Musculoskeletal: No Tenderness to Palpation of Joints or Extremities. Moderate muscle atrophy of both lower extremities Neurological: Cranial nerves II-XII grossly intact, DTR 2+/4 Psych/Mental Status: Irritable. Assessment & Plan Assessment/Plan (1) ABLA (acute blood loss anemia): PLAN: The patient is admitted for severe anemia along with melena. Patient also nauseated. Patient has chronic productive cough with history of COPD and chronic cigarette/tobacco use. 1. Acute on chronic blood loss anemia, iron deficiency anemia due to GI blood loss on 3 antiplatelet/anticoagulation medication: Patient had 2 units of PRBC transfusion hemoglobin went up to 6.5 from 4.4. Monitor PRBC ordered. GI consulted. Patient had EGD done on 11/26 reported medium size hiatus hernia, normal stomach. Normal second portion of duodenum. Aspirin, Plavix and warfarin held. 11/27: Hemoglobin 7.7. After 3 units of PRBC transfusion and 3 units of FFP. Iron work-up shows iron deficiency anemia with iron saturation 2.1% ferritin 5. IV iron ordered patient went for colonoscopy today. Hemorrhoids, 3 1 to 2 mm polyp in sigmoid colon, cecum removed with hot snare. Single bleeding ascending colonic angiodysplastic treated with APC. Discussed with GI Dr. Santiago. Continue PPI every 12 hourly. Agreed to start warfarin 6 mg daily as patient is high risk for thromboembolism admission below 11/28: Hemoglobin is 7.0. IV iron ordered. No external loss of blood. Check ferritin tomorrow a.m. monitor CBC daily. Stool for occult blood positive 2. Severe peripheral arterial disease and recurrent DVT of lower extremities: he had 9 stents on the right leg and 2 stents in the left leg. Patient is on aspirin Plavix and Coumadin. He follows Dr. Villa, vascular surgeon in [facility]. As hemoglobin is still low 7.7, will hold aspirin and Plavix. Patient does not telephone number office vascular surgeon but said his ex- has it and she is not available right now but he might get it in the evening. Patient has last stent put more than a year ago as per the patient. 11/28: I tried to talk to Dr. Huber Villa, vascular surgeon [facility] regarding anticoagulant but could not connect. I talked to Dr. Guajardo on 11/27 and agreed for starting on baby aspirin today. Warfarin was restarted yesterday, 6 mg daily home dose. INR 1.2. 3. COPD he is also chronic, continuous smoker. 4. FLEX: Resolved. Creatinine 1.2. Avoid nephrotoxins. Mild hypokalemia, potassium getting replaced 5. Acute hyponatremia, resolved. Repeat sodium 137. Hold HCTZ 11/28: Hyponatremia corrected but patient has hypophosphatemia. On Neutra-Phos. Magnesium normal 2.0. Potassium 3.7. 6. Other comorbidities include hypertension, on nifedipine and metoprolol. Patient is right eye blind. Total time of the visit including total time spent in counseling or coordination of care, (more than 50% of the total time, spent in obtaining medical information from nurses and other ancillary care providers,explaining to the patient about labs, imaging, diagnosis and management), , review of labs and imaging is 40 minutes. Charges/Coding Visit Charges Inpatient E&M: 18080 Subs Hosp L2
[2021-11-28] MEDS: carBAMazepine 200 MG Tablet PO ×2 (09:27→21:10)
[2021-11-28] MEDS: Sertraline 100 MG Tablet PO (09:27)
[2021-11-28] MEDS: Na Biphos/Potassium Phosphate PACKET 1 PACKET PO ×3 (09:27→21:04)
[2021-11-28] MEDS: Finasteride 5 MG Tablet PO (09:28)
[2021-11-28] MEDS: NIFEdipine 90 MG Tablet PO (09:28)
[2021-11-28] MEDS: Metoprolol Tartrate 25 MG Tablet 12.5 MG PO ×2 (09:28→21:09)
[2021-11-28] MEDS: Aspirin E.C. 81 MG Tablet PO (09:28)
[2021-11-28] MEDS: Lidocaine 5% Patch 1 PATCH TOPICAL (09:29)
[2021-11-28] MEDS: Ipratropium/Albuterol Sulfate 3 ML AMPUL.NEB INHALATION ×3 (09:49→19:03)
[2021-11-28] MEDS: Ensure Clear 120 ML Liquid PO ×2 (12:51→21:02)
[2021-11-28] MEDS: Ferrous Sulfate 325 MG Tablet PO (12:52)
[2021-11-28] MEDS: 0.9% Normal Saline 1,000 ML 15 ML IV (15:04)
[2021-11-28] MEDS: Acetaminophen 325 MG Tablet 650 MG PO ×2 (15:05→21:06)
[2021-11-28] MEDS: 0.9% Saline Lock 10 ML Syringe IV (21:03)
[2021-11-28] MEDS: Tamsulosin HCl 0.4 MG Capsule PO (21:04)
[2021-11-28] MEDS: Atorvastatin Calcium 40 MG Tablet PO (21:07)
[2021-11-28] MEDS: MELATONIN 3 MG TABLET PO (21:07)
[2021-11-28] MEDS: Mirtazapine 15 MG Tablet PO (21:11)
[2021-11-29] VITALS (11 sets, daily range): BP systolic 149–180; BP diastolic 58–83; PULSE 62–70; RESP 16–27; TEMP 36.4–36.8; O2SAT 92–96
[2021-11-29] MEDS: Benzonatate 100 MG Capsule PO ×2 (02:31→10:02)
[2021-11-29] MEDS: Ipratropium/Albuterol Sulfate 3 ML AMPUL.NEB INHALATION ×4 (07:33→19:05)
--- NOTE | 2021-11-29 09:32 | CASEMGMT ---
Physician spoke with patient about going to a [facility] facility. Patient told physician to ask his ex- where he will go. Physician tried to call patient's ex- as did NATHANIEL and it goes right to her voice mailbox which is full. NATHANIEL will try again. Mago TOWNSEND
[2021-11-29] MEDS: Sertraline 100 MG Tablet PO (09:45)
[2021-11-29] MEDS: carBAMazepine 200 MG Tablet PO ×2 (09:45→22:15)
[2021-11-29] MEDS: NIFEdipine 90 MG Tablet PO (09:45)
[2021-11-29] MEDS: Aspirin E.C. 81 MG Tablet PO (09:45)
[2021-11-29] MEDS: Metoprolol Tartrate 25 MG Tablet 12.5 MG PO ×2 (09:46→22:14)
[2021-11-29] MEDS: Finasteride 5 MG Tablet PO (09:46)
[2021-11-29] MEDS: Lidocaine 5% Patch 1 PATCH TOPICAL (09:48)
[2021-11-29 09:55] LABS: Absolute Lymphocyte Count 0.93 X10^3/uL (0.83-4.51); Absolute Neutrophil Count 5.3 X10^3/uL (2.0-7.7); Basophil# 0.09 X10^3/uL; Basophil% 1.3 % (0-1); Eosinophil# 0.24 X10^3/uL; Eosinophils% 3.4 % (0-5); Hematocrit 25.2 % (40-54); Hemoglobin 7.4 g/dL (13.0-16.5); Lymphocyte # 0.93 X10^3/ul (0.83-4.51); Lymphocyte % 13.2 % (19-41); Mean Corp Hgb Conc 29.4 g/dL (32-36); Mean Corpuscular Hgb 23.9 pg (27.0-32.0); Mean Corpuscular Volume 81.6 fL (80-94); Mean Platelet Vol. 10.2 fl (6.2-12.0); Monocyte# 0.39 X10^3/uL; Monocyte% 5.5 % (0-10); NRBC Flagged by Analyzer 0.9 % (0-5); Neutrophil # 5.29 X10^3/uL (2.7-7.7); POSITIVE MORPHOLOGY YES; Platelet Count 275 K/mm3 (150-450); RBC Distribution Width CV 22.5 % (11.6-14.6); RBC Distribution Width SD 62.1 fl (35.1-43.9); Red Blood Count 3.09 M/mm3 (4.6-6.2); White Blood Count 7.1 K/mm3 (4.4-11.0)
[2021-11-29 10:00] LABS: Differential Indicated SCAN CRITERIA MET
[2021-11-29] MEDS: Ensure Clear 120 ML Liquid PO ×4 (10:01→22:19)
[2021-11-29 10:11] LABS: International Normalized Ratio 1.3; Prothrombin Time (Protime)PT. 16.1 SECONDS (11.7-14.9)
[2021-11-29 10:33] LABS: Anion Gap 6 (5-15); BUN 11 mg/dL (7-18); BUN/Creat Ratio 11.4 RATIO (10-20); Calcium,Total 8.5 mg/dL (8.5-10.1); Chloride 109 mmol/L (98-107); Creatinine, Serum 0.96 mg/dL (0.70-1.30); EST Glomerular Filtration Rate 82 mL/min (>60); Est Glom Filt Rate - Afr Amer 99 mL/min (>60); Estimated Creatinine Clearance 67.29 ml/min; Ferritin 157 ng/mL (26-388); Glucose 97 mg/dL (74-106); Potassium 3.6 mmol/L (3.5-5.1); Sodium Level 141 mmol/L (136-145)
--- NOTE | 2021-11-29 10:46 | CASEMGMT ---
SW attempted to call patient's ex- again. It rang several times this time, but her voice mailbox was still full. SW will talk with patient. Mago Hayes SORTER PACKER KRISTIAN
[2021-11-29 10:49] LABS: Anisocytosis 2+; Hypochromasia 1+; Platelet Estimate ADEQUATE (ADEQ); Polychromasia 1+
--- NOTE | 2021-11-29 11:50 | CASEMGMT ---
SW spoke with patient's ex- Giovana. SW spoke with her about alf choices as patient is deferring to her. Her two choices were [facility] and [facility]. SW will work on referrals. Patient does have a list of SNF providers including quality and resource use data and consistent with the patient?s preferred geographic region, medical needs, and insurance network in his room. SW reviewed patient's insurance website and it does not look like [facility] is in network. SW faxed referral to [facility] and also called Steffany regarding referral. Await response. Mago Hayes INTEGRATION ARCHITECT KRISTIAN
[2021-11-29] MEDS: Acetaminophen 325 MG Tablet 650 MG PO (12:23)
[2021-11-29] MEDS: Ferrous Sulfate 325 MG Tablet PO (12:23)
[2021-11-29] MEDS: Na Biphos/Potassium Phosphate PACKET 1 PACKET PO ×2 (14:34→22:14)
--- NOTE | 2021-11-29 19:00 | PCM.PN.HOSP ---
Subjective Subjective She was seen and examined today, initially he was rude to the nursing staff on the laboratory, he initially refuses blood draw this morning, patient asked me what I wanted when I approached him in his room. I explained to him that we had to draw blood and I wanted to know what his plans were as far as discharge planning was, patient states he is going to leave it up to his ex- to make a decision whether he goes to a nursing facility or goes to his home when he is discharged. Lab was obtained later on in the morning, it showed a hemoglobin of 7.4 which is low but stable, patient's INR was 1.3 Objective Data Objective Data Vital Signs: Vital Signs Temp Pulse Resp BP Pulse Ox 98.2 F 70 16 157/65 H 94 11/29/21 15:46 11/29/21 15:46 11/29/21 15:46 11/29/21 15:46 11/29/21 15:46 Oxygen Flow Rate (L/min) 2 Oxygen Delivery Method Room Air Weight: 71.6 kg Body Mass Index (BMI) 24.0 Intake & Output: Intake and Output for Last 24 Hours 11/27/21 11/28/21 11/29/21 23:59 23:59 23:59 Intake Total 1290 / 1690 2030 / 2030 1080 / 1080 Output Total 450 / 750 1100 / 1300 1225 / 1225 Balance 840 / 940 930 / 730 -145 / -145 Lab / Micro Data Result Diagrams: 11/29/21 09:34 11/29/21 09:34 Labs: Laboratory Results - last 24 hr 11/29/21 09:34: WBC 7.1, RBC 3.09 L, Hgb 7.4 L, Hct 25.2 L, MCV 81.6, MCH 23.9 L, MCHC 29.4 L, RDW Std Deviation 62.1 H, RDW Coeff of Aly 22.5 H, Plt Count 275, MPV 10.2, Immature Gran % (Auto) 1.600 H, Neut % (Auto) 75.0 H, Lymph % (Auto) 13.2 L, [place] % (Auto) 5.5, Eos % (Auto) 3.4, Baso % (Auto) 1.3 H, Absolute Neuts (auto) 5.3, Absolute Lymphs (auto) 0.93, Nucleated RBC % 0.9, Platelet Estimate ADEQUATE, Polychromasia 1+, Hypochromasia 1+, Anisocytosis 2+ 11/29/21 09:34: Sodium 141, Potassium 3.6, Chloride 109 H, Carbon Dioxide 26.0, Anion Gap 6, BUN 11, Creatinine 0.96, Estim Creat Clear Calc 67.29, Est GFR (MDRD) Af Amer 99, Est GFR (MDRD) Non-Af 82, BUN/Creatinine Ratio 11.4, Glucose 97, Calcium 8.5, Ferritin 157 11/29/21 09:34: PT 16.1 H, INR 1.3 Micro: Microbiology 11/25/21 19:00 Stool Stool Occult Blood (LACI) - Final Occult Blood Positive Physical Exam Const alert, oriented x3 and no apparent distress General Appearance: cooperative, well kempt and well developed Orientation / Consciousness: awake, oriented to person, oriented to place and oriented to time HEENT normocephalic, head/scalp atraumatic and moist oral mucous membranes Head and Scalp: normocephalic Eyes PERRL, EOMs intact bilaterally and conjunctivae normal Neck nuchal rigidity, supple, no JVD, thyroid normal and no carotid bruits General: trachea midline Resp normal respiratory effort, no retractions, no use of accessory muscles and clear to auscultation bilaterally Auscultation: Negative for rales, rhonchi or wheezes Cardio regular rate, regular rhythm, S1 normal heart sound, S2 normal heart sound, no murmurs, no rub and no gallops GI normal to inspection, nondistended, normoactive bowel sounds, soft to palpation, non-tender and non-distended Extremity no clubbing, cyanosis or edema Skin no rashes or lesions noted General Skin Exam: no breakdown Neuro oriented x3, CN's II-XII intact bilaterally, no focal motor deficits and no sensory deficits noted Sensorium / Orientation: awake and alert Speech: speech normal Psych Psych Narrative: Patient appears rude and aggressive at times Assessment & Plan Assessment/Plan (1) ABLA (acute blood loss anemia): PLAN: 1. Acute on chronic blood loss anemia secondary to bleeding angiodysplasia of the colon-this appears of stabilized at this time, patient is back on anticoagulants at this time, he will be monitored with daily labs-if the patient allows lab draws. I will give the patient another dose of IV iron #2 severe peripheral artery disease with recurrent DVTs of the lower extremities-patient was on aspirin, Plavix, and Coumadin, the aspirin and the Plavix are being held at this time, patient has resumed warfarin but it is now on therapeutic, INR will be rechecked tomorrow #3 chronic obstructive pulmonary disease-this appears stable at this time #4 acute kidney injury-resolved #5 essential hypertension-patient will remain on his present medications #6 acute debility-patient has consented to go to an extended care facility for rehab services, his ex- was contacted, she is his POA and she agreed that he should go for short-term rehab services. We will plan on either [facility] or [facility]. #7 hypophosphatemia-patient's phosphorus will be rechecked tomorrow Charges/Coding Visit Charges Inpatient E&M: 92736 Subs Hosp L3
[2021-11-29] MEDS: Atorvastatin Calcium 40 MG Tablet PO (22:14)
[2021-11-29] MEDS: Tamsulosin HCl 0.4 MG Capsule PO (22:14)
[2021-11-29] MEDS: Mirtazapine 15 MG Tablet PO (22:16)
[2021-11-29] MEDS: Glycerin/Hypromellose/PEG400 15 ml Bottle 1 DRP EACH EYE (22:50)
[2021-11-30] VITALS (8 sets, daily range): BP systolic 134–171; BP diastolic 50–84; PULSE 60–88; RESP 17–18; TEMP 36.3–36.9; O2SAT 90–94
[2021-11-30] MEDS: Glycerin/Hypromellose/PEG400 15 ml Bottle 1 DRP EACH EYE ×2 (05:33→11:23)
[2021-11-30] MEDS: Na Biphos/Potassium Phosphate PACKET 1 PACKET PO ×2 (05:34→14:00)
[2021-11-30 06:44] LABS: Absolute Lymphocyte Count 1.13 X10^3/uL (0.83-4.51); Absolute Neutrophil Count 6.9 X10^3/uL (2.0-7.7); Basophil# 0.14 X10^3/uL; Basophil% 1.5 % (0-1); Eosinophil# 0.33 X10^3/uL; Eosinophils% 3.5 % (0-5); Hematocrit 26.9 % (40-54); Hemoglobin 7.8 g/dL (13.0-16.5); Lymphocyte # 1.13 X10^3/ul (0.83-4.51); Lymphocyte % 12.2 % (19-41); Mean Corpuscular Hgb 24.3 pg (27.0-32.0); Mean Corpuscular Volume 83.8 fL (80-94); Mean Platelet Vol. 10.8 fl (6.2-12.0); Monocyte# 0.65 X10^3/uL; NRBC Flagged by Analyzer 2.7 % (0-5); Neutrophil # 6.92 X10^3/uL (2.7-7.7); Neutrophil % 74.4 % (47-70); POSITIVE MORPHOLOGY YES; Platelet Count 305 K/mm3 (150-450); RBC Distribution Width CV 24.2 % (11.6-14.6); RBC Distribution Width SD 64.9 fl (35.1-43.9); Red Blood Count 3.21 M/mm3 (4.6-6.2); White Blood Count 9.3 K/mm3 (4.4-11.0)
[2021-11-30 06:50] LABS: Differential Indicated SCAN CRITERIA MET
[2021-11-30] MEDS: Ipratropium/Albuterol Sulfate 3 ML AMPUL.NEB INHALATION ×3 (06:53→15:03)
[2021-11-30 06:55] LABS: International Normalized Ratio 1.4; Prothrombin Time (Protime)PT. 17.1 SECONDS (11.7-14.9)
[2021-11-30 07:11] LABS: Anion Gap 7 (5-15); BUN 11 mg/dL (7-18); Calcium,Total 8.9 mg/dL (8.5-10.1); Chloride 107 mmol/L (98-107); Creatinine, Serum 0.91 mg/dL (0.70-1.30); EST Glomerular Filtration Rate 87 mL/min (>60); Est Glom Filt Rate - Afr Amer 105 mL/min (>60); Estimated Creatinine Clearance 70.99 ml/min; Glucose 90 mg/dL (74-106); Potassium 3.4 mmol/L (3.5-5.1); Sodium Level 140 mmol/L (136-145)
[2021-11-30 07:15] LABS: Anisocytosis 2+
[2021-11-30 07:16] LABS: Polychromasia 2+
[2021-11-30 07:19] LABS: Phosphorus 3.4 mg/dL (2.5-4.9)
--- NOTE | 2021-11-30 07:56 | BH.SGPN.T2 ---
Behaviors/Verbalizations/Mental Status: [] Client Response/Progress/Benefit: [] Narrative Note: []Pt refused to put on nasal cannula after treatment desat 89%
[2021-11-30] MEDS: Aspirin E.C. 81 MG Tablet PO (08:56)
[2021-11-30] MEDS: Potassium Chloride Oral Tablet 20 MEQ 40 MEQ PO (08:56)
[2021-11-30] MEDS: Lidocaine 5% Patch 1 PATCH TOPICAL (08:58)
--- NOTE | 2021-11-30 09:36 | CASEMGMT ---
Discharge Maintenance Operator Contacted Steffany at [facility]. Patient has been accepted. Pre-cert was started yesterday 11/29/21. Faxed Updated. Will stay in touch. Racheal Martin Discharge Maintenance Operator
[2021-11-30] MEDS: Metoprolol Tartrate 25 MG Tablet 12.5 MG PO (10:11)
--- NOTE | 2021-11-30 10:11 | CASEMGMT ---
Social Work Note SW received call from Steffany at [facility] stating pre-cert has been obtained and pt can discharge to [facility] today. NATHANIEL updated physician. Plan: [facility] today skilled Nohemi Spears MSW, WOOD FURNITURE ASSEMBLER
[2021-11-30] MEDS: NIFEdipine 90 MG Tablet PO (10:12)
[2021-11-30] MEDS: Finasteride 5 MG Tablet PO (10:12)
[2021-11-30] MEDS: carBAMazepine 200 MG Tablet PO (10:13)
[2021-11-30] MEDS: Sertraline 100 MG Tablet PO (10:13)
--- NOTE | 2021-11-30 10:14 | TREXTCAR_ITS ---
Diet 11/27/21 09:05 Diet: Regular - General Food consistency:: Easy to Chew Liquid Consistency:: Regular/Thin Is pt able to select menu?: Yes Diet Comments: Except meds with sips Routine Orders/Code Status Routine Lab Work: CBC (In 1 week), BMP (1 week) and INR (Daily x5 days, Weekly thereafter-Maintain INR between 2 and 3, Start labs on 12/01/2021) Code Status: Full Code Wound(s) Right posterior forearm: Wound Type: Abrasion Therapies Weight Bearing: Full weight bearing Physical Therapy: Eval and Treat Occupational Therapy: Eval and Treat Problem/Diagnosis (1) ABLA (acute blood loss anemia): Status: Acute Comment: secondary to bleeding angodysplasia of the colon (2) COPD (chronic obstructive pulmonary disease) with emphysema: Status: Chronic (3) Peripheral vascular disease: Status: Chronic Comment: Status post stent (4) 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: Status: Chronic Comment: On warfarin (5) Iron deficiency anemia: Status: Chronic (6) Hypertension: Status: Chronic (7) History of atrial fibrillation: Status: Chronic Allergies/Procedures Done in Hospital Allergies No Known Allergies Allergy (Verified 10/08/21 14:15) Procedures: Colonoscopy and EGD Type of Care/Length of Stay Estimated LOS: Convalescent Care Less Than 30 days Type of Care Needed: Skilled Rehab Potential: Good Prognosis: Good Additional Orders/Day of Discharge H&P will serve as current which was dated: 11/25/21 Day of Discharge: 11/30/21 Dietary and Speech Recommendations Dietitian Recommendations/Changes: Continue Regular diet as ordered---will adjust solid foods to [id number] consistency per pt request. Will continue ensure clear 120 ml 4 times per day with medpass. Discharge Plan Admission Admit Date/Time: 11/25/21 19:47 Primary Reason for Your Visit: lower GI bleed, anemia Attending Provider: Ryan Guerin Primary Care Provider: Daija Douglas Consulting Providers: Paulino Henderson ; Fran Cartwright ; Brody Maynard Discharge Orders/Prescriptions Prescriptions: New acetaminophen [Tylenol] 325 mg Tablet 650 mg PO Q6H PRN PRN (Reason: Pain 1-10 Or Fever) Qty: 0 RF: 0 Ensure Clear Liquid 120 ml PO 4X/DAY Qty: 0 RF: 0 ferrous sulfate [FeroSul] 325 mg (65 mg iron) Tablet 325 mg PO BID Qty: 1 RF: 0 ipratropium-albuterol 0.5 mg-3 mg(2.5 mg base)/3 mL Solution For Nebulization 3 ml inhalation 4XD Qty: 3 RF: 0 nicotine 21 mg/24 hr Patch 24 Hour 21 mg transdermal DAILY Qty: 0 RF: 0 warfarin [Jantoven] 6 mg Tablet 6 mg PO DINNER Qty: 0 RF: 0 Continued tamsulosin 0.4 MG capsule 0.4 mg PO QHS RF: 0 finasteride 5 MG tablet 5 mg PO DAILY RF: 0 atorvastatin 40 MG tablet 40 mg PO QHS RF: 0 sertraline 50 MG tablet 100 mg PO DAILY RF: 0 metoprolol tartrate 25 MG tablet 12.5 mg PO BID RF: 0 mirtazapine 15 MG tablet 15 mg PO QHS RF: 0 clopidogrel 75 MG tablet 75 mg PO DAILY RF: 0 carbamazepine 200 MG tablet 200 mg PO Q12H RF: 0 albuterol sulfate 2.5 MG/3 ML solution for nebulization 2.5 mg INHALATION Q4H PRN PRN (Reason: sob/wheezing) RF: 0 losartan 100 mg tablet 100 mg PO DAILY RF: 0 pantoprazole 40 mg tablet,delayed release (DR/EC) 40 mg PO DAILY RF: 0 lidocaine 5 % adhesive patch,medicated 1 patch topical DAILY RF: 0 nifedipine 90 mg tablet extended release 90 mg PO DAILY RF: 0 Changed alendronate 70 mg tablet 70 mg PO QWEEK Qty: 1 RF: 0 Discontinued warfarin 7.5 MG tablet 6 mg PO DAILY RF: 0 aspirin 81 MG tablet,chewable 81 mg PO DAILY@0800 RF: 0 ipratropium-albuterol 3 ML solution for nebulization 3 ml INHALATION Q6HWA.RT RF: 0 hydrochlorothiazide 12.5 mg capsule 25 mg PO DAILY RF: 0 Referrals / Follow Up: Daija Douglas MD [Primary Care Provider] - Disposition Disposition (needs filled in before D/C Order can be placed): [facility] Facility
[2021-11-30] MEDS: Ferrous Sulfate 325 MG Tablet PO (10:57)
--- NOTE | 2021-11-30 11:20 | CASEMGMT ---
Addendum entered by Nohemi Spears 11/30/21 11:47: NATHANIEL received email from Carisa that pt will be going to a private room and pt will need a COVID test. SW in to speak with pt. SW updated pt that this worker has been working with Giovana and plan is for pt to go to [facility] today and pt will have a private room. Pt states understanding. SW attempted to call Giovana to update, no answer, voicemail full and unable to leave message. SW to fax discharge paperwork once completed. Plan: [facility] skilled today Original Note: Social Work Note NATHANIEL placed a call to pt's ex Giovana and updated her that pt has been accepted to [facility], pre-cert has been obtained and pt will discharge to [facility]. Giovana states that pt will need to go to a private room because if pt is not in a private room, he will not stay in facility. NATHANIEL informed Giovana that this worker will check with [facility] and let her know. NATHANIEL placed a call to Steffany at [facility] and asked if pt is going to a private room or if pt can go to a private room. NATHANIEL also emailed Steffany. NATHANIEL waiting for call or email back from Steffany at [facility]. Nohemi Spears FAST FOOD CREW MEMBER, HYDRODYNAMICS TEACHER
[2021-11-30] MEDS: Acetaminophen 325 MG Tablet 650 MG PO (11:24)
--- NOTE | 2021-11-30 11:48 | PCM.DC.SUM ---
Providers Date of Admission: 11/25/21 Date of Discharge: 11/30/21 Primary Care Physician: Dr. Daija Douglas MD Consultations 11/25/21 23:29 Consult: Gastroenterology Routine Consulting Provider: Paulino Henderson Reason for Consult: ABLA EMERGENT Consult: No MD Notified: Yes Date Notified: 11/25/21 Time Notified: 19:55 Method of Notification: notified via ED MD Reason For Visit: ABLA Diagnosis Discharge Diagnosis (1) ABLA (acute blood loss anemia): Status: Acute Code(s): D62 - Acute posthemorrhagic anemia (2) COPD (chronic obstructive pulmonary disease) with emphysema: Status: Chronic Code(s): J43.9 - Emphysema, unspecified (3) Peripheral vascular disease: Status: Chronic Code(s): I73.9 - Peripheral vascular disease, unspecified (4) 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: Status: Chronic 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 1.? Acute on chronic blood loss anemia secondary to bleeding angiodysplasia of the colon-requiring blood transfusion #2 severe peripheral artery disease with recurrent DVTs of the lower extremities #3 chronic obstructive pulmonary disease #4 acute kidney injury was ruled out #5 essential hypertension #6 acute debility #7 hypophosphatemia-patient's phosphorus will be rechecked tomorrow #8 mild dehydration Medications at Discharge Home Medications tamsulosin 0.4 mg capsule 0.4 mg PO QHS bph 01/26/14 finasteride 5 mg tablet 5 mg PO DAILY prostate 11/14/14 atorvastatin 40 mg tablet 40 mg PO QHS Cholesterol 09/23/15 metoprolol tartrate 25 mg tablet 12.5 mg PO BID Bp 12/02/15 sertraline 50 mg tablet 100 mg PO DAILY mood stabilizer 12/02/15 mirtazapine 15 mg tablet 15 mg PO QHS anti depressant 08/16/19 clopidogrel 75 mg tablet 75 mg PO DAILY blood thinner 10/25/19 carbamazepine 200 mg tablet 200 mg PO Q12H Check with primary doctor 10/26/19 albuterol sulfate 2.5 mg (3 mL) inhalation Q4H PRN PRN sob/wheezing 08/12/20 losartan 100 mg tablet 100 mg PO DAILY Blood pressure 08/19/21 pantoprazole 40 mg tablet,delayed release 40 mg PO DAILY GERD 08/19/21 lidocaine 5 % topical patch 1 patch topical DAILY 10/08/21 nifedipine 90 mg tablet,extended release 90 mg PO DAILY 11/25/21 acetaminophen 325 mg tablet (Tylenol) 650 mg PO Q6H PRN PRN Pain 1-10 Or Fever #0 tabs 11/30/21 alendronate 70 mg tablet 70 mg PO QWEEK #1 TAB 11/30/21 ferrous sulfate 325 mg (65 mg iron) tablet (FeroSul) 325 mg PO BID #1 TAB 11/30/21 food supplemt, lactose-reduced (Ensure Clear) 120 ml PO 4X/DAY #0 mL 11/30/21 ipratropium 0.5 mg-albuterol 3 mg (2.5 mg base)/3 mL nebulization soln 3 ml inhalation 4XD #3 mL 11/30/21 nicotine 21 mg/24 hr daily transdermal patch 21 mg transdermal DAILY #0 ea 11/30/21 warfarin 6 mg tablet (Jantoven) 6 mg PO DINNER #0 tabs 11/30/21 Hospital Course Operations None Procedures Colonoscopy and EGD Summary of Care Provided Minutes Spent on Discharge: 33 Hospital Course: This 71-year-old white male was seen in the emergency room at [facility] with a history of black watery diarrhea, he also complained of nausea but no vomiting. He was instructed to go to the emergency room by his PCP for evaluation. CT of the abdomen and pelvis was obtained no acute pathology was visualized, patient's creatinine was elevated at 1.44, patient was admitted to PCU, he received 3 units of packed red blood cells, he underwent a work-up by gastroenterology who performed a colonoscopy which showed angiodysplasia of the colon, he was seen in consultation by PT and OT, they felt the patient would benefit from inpatient half-way services, his ex- was contacted at his request to give advice as to whether he should go to a half-way facility, it was agreed he would go to a half-way facility. On 11/30/2021, patient was seen and examined: On examination he appeared in good health and spirits. Vital signs as documented. Skin warm and dry and without overt rashes. Neck without JVD, neck was supple, trachea midline, thyroid was normal. Lungs clear bilaterally, normal air movement was noted. Heart exam notable for regular rhythm, normal sounds and absence of murmurs, rubs or gallops. Abdomen unremarkable and without evidence of organomegaly, masses, or abdominal aortic enlargement. Bowel sounds are present, abdomen is not distended. Extremities nonedematous, no cyanosis was noted, no clubbing was noted. Neuro: Cranial nerves II through XII are grossly intact, no focal motor deficits were noted, sensation to light touch and pinprick intact, motor exam 5/5 throughout. Psych: Patient is alert and oriented x3, he does not appear anxious or depressed, he does not appear agitated. Patient was felt to be stable for transfer to an extended care facility on 11/30/2021 Weight / BMI Weight Weight: 71.6 kg Body Mass Index (BMI) 24.0 ABG / Lab / Microbiology Data Result Diagrams: 11/30/21 Unknown 11/30/21 Unknown Laboratory: Laboratory Results - last 24 hr 11/30/21 05:29: PT 17.1 H, INR 1.4 11/30/21 : WBC 9.3, RBC 3.21 L, Hgb 7.8 L, Hct 26.9 L, MCV 83.8, MCH 24.3 L, MCHC 29.0 L, RDW Std Deviation 64.9 H, RDW Coeff of Aly 24.2 H, Plt Count 305, MPV 10.8, Immature Gran % (Auto) 1.400 H, Neut % (Auto) 74.4 H, Lymph % (Auto) 12.2 L, Mills % (Auto) 7.0, Eos % (Auto) 3.5, Baso % (Auto) 1.5 H, Absolute Neuts (auto) 6.9, Absolute Lymphs (auto) 1.13, Nucleated RBC % 2.7, Polychromasia 2+, Anisocytosis 2+ 11/30/21 : Sodium 140, Potassium 3.4 L, Chloride 107, Carbon Dioxide 26.0, Anion Gap 7, BUN 11, Creatinine 0.91, Estim Creat Clear Calc 70.99, Est GFR (MDRD) Af Amer 105, Est GFR (MDRD) Non-Af 87, BUN/Creatinine Ratio 12.0, Glucose 90, Calcium 8.9 11/30/21 : Phosphorus 3.4 Microbiology: Microbiology 11/25/21 19:00 Stool Stool Occult Blood (LACI) - Final Occult Blood Positive Meaningful Use Info Meaningful Use Diagnoses (Choose all that apply): None applicable Discharge Plan Admission Admit Date/Time: 11/25/21 19:47 Primary Reason for Your Visit: lower GI bleed, anemia Attending Provider: Ryan Guerin Primary Care Provider: Daija Douglas Consulting Providers: Santiago,Paulino ; Fran Cartwright ; Brody Maynard Discharge Orders/Prescriptions Prescriptions: New acetaminophen [Tylenol] 325 mg Tablet 650 mg PO Q6H PRN PRN (Reason: Pain 1-10 Or Fever) Qty: 0 0RF Ensure Clear Liquid 120 ml PO 4X/DAY Qty: 0 0RF ferrous sulfate [FeroSul] 325 mg (65 mg iron) Tablet 325 mg PO BID Qty: 1 0RF ipratropium-albuterol 0.5 mg-3 mg(2.5 mg base)/3 mL Solution For Nebulization 3 ml inhalation 4XD Qty: 3 0RF nicotine 21 mg/24 hr Patch 24 Hour 21 mg transdermal DAILY Qty: 0 0RF warfarin [Jantoven] 6 mg Tablet 6 mg PO DINNER Qty: 0 0RF Continued tamsulosin 0.4 MG capsule 0.4 mg PO QHS Label Comments: Prostate and urine finasteride 5 MG tablet 5 mg PO DAILY Label Comments: prostate atorvastatin 40 MG tablet 40 mg PO QHS Label Comments: CHOLESTEROL sertraline 50 MG tablet 100 mg PO DAILY Label Comments: depression metoprolol tartrate 25 MG tablet 12.5 mg PO BID Label Comments: blood pressure / heart rate mirtazapine 15 MG tablet 15 mg PO QHS clopidogrel 75 MG tablet 75 mg PO DAILY carbamazepine 200 MG tablet 200 mg PO Q12H Label Comments: face pain albuterol sulfate 2.5 MG/3 ML solution for nebulization 2.5 mg INHALATION Q4H PRN PRN (Reason: sob/wheezing) 0RF losartan 100 mg tablet 100 mg PO DAILY pantoprazole 40 mg tablet,delayed release (DR/EC) 40 mg PO DAILY lidocaine 5 % adhesive patch,medicated 1 patch topical DAILY Label Comments: PLACE 1 PATCH ON TO CLEAN INTACT SKIN FOR UP TO 12 HOURS IN A 24 HOUR PERIOD nifedipine 90 mg tablet extended release 90 mg PO DAILY Changed alendronate 70 mg tablet 70 mg PO QWEEK Qty: 1 0RF Discontinued warfarin 7.5 MG tablet 6 mg PO DAILY aspirin 81 MG tablet,chewable 81 mg PO DAILY@0800 ipratropium-albuterol 3 ML solution for nebulization 3 ml INHALATION Q6HWA.RT hydrochlorothiazide 12.5 mg capsule 25 mg PO DAILY Referrals / Follow Up: Daija Douglas MD [Primary Care Provider] - Disposition Disposition (needs filled in before D/C Order can be placed): Care Home Facility Charges/Coding Visit Charges Inpatient E&M: 67182 Disch Hosp
--- NOTE | 2021-11-30 11:54 | CPS ---
PT REFUSED TO WEAR O2 SAT WAS 70%, AFTER AEROSOL TREATMENT HE COMPLIED TO WEARING NC AT 3L SAT 90%
--- NOTE | 2021-11-30 13:25 | CASEMGMT ---
Call to [facility] to notify that pt will d/c to SNF today, voices understanding. Earl AHUJA CM
[2021-11-30] MEDS: Ensure Clear 120 ML Liquid PO (14:00)
--- NOTE | 2021-11-30 14:14 | NURSING ---
Report called to [facility] and spoke with Catrina
--- NOTE | 2021-11-30 14:36 | PHA.DC.MR ---
Pharmacy Service has performed discharge medication reconciliation for this patient. The patient's discharge medication list was reviewed for discrepancies and discrepancies were resolved. Home Medications tamsulosin 0.4 mg PO QHS 01/26/14 finasteride 5 mg PO DAILY 11/14/14 atorvastatin 40 mg PO QHS 09/23/15 metoprolol tartrate 12.5 mg PO BID 12/02/15 sertraline 100 mg PO DAILY 12/02/15 mirtazapine 15 mg PO QHS 08/16/19 clopidogrel 75 mg PO DAILY 10/25/19 carbamazepine 200 mg PO Q12H 10/26/19 albuterol sulfate 2.5 mg INHALATION Q4H PRN PRN vial.neb. 08/12/20 losartan 100 mg PO DAILY 08/19/21 pantoprazole 40 mg PO DAILY 08/19/21 lidocaine 1 patch TOPICAL DAILY 10/08/21 nifedipine 90 mg PO DAILY 11/25/21 acetaminophen [Tylenol] 650 mg PO Q6H PRN PRN #0 tab 11/30/21 alendronate 70 mg PO QWEEK #1 tab 11/30/21 ferrous sulfate [FeroSul] 325 mg PO BID #1 tab 11/30/21 food supplemt, lactose-reduced [Ensure Clear] 120 ml PO 4X/DAY #0 ml 11/30/21 ipratropium-albuterol 3 ml INHALATION 4XD #3 ml 11/30/21 nicotine 21 mg TRANSDERMAL DAILY #0 ea 11/30/21 warfarin [Jantoven] 6 mg PO DINNER #0 tab 11/30/21
--- NOTE | 2021-11-30 15:12 | CASEMGMT ---
Addendum entered by Nohemi Spears 11/30/21 15:40: SW also placed a call to pt's RAMANA Childers at [facility] and left message updating her on pt's discharge. Original Note: Social Work Note SW completed [facility] in HENS. Original in SNF folder and copy on pt's chart. SW faxed completed discharge paperwork to [facility] including transfer to extended care facility, signed medication list, any scripts, COVID test/tool, and HENS. Original in SNF folder and copy on pt's chart. SW spoke with MIKE Loaiza, confirms pt can transport via cot. SW accessed trip assist and arranged transportation via cot for 4:00pm. Transportation form completed and placed on SNF folder and copy on pt's chart. SW updated Josse MCKEON on transportation time. SW placed a call to Steffany at [facility] and updated her on transportation time. SW attempted to call Giovana twice to update, no answer, voicemail full, unable to leave message. SW in to speak with pt. SW updated pt on discharge and transportation time. Pt states that he spoke with Giovana and she is aware he is going to [facility] today. Plan: [facility] skilled today with Physician's transporting pt via cot at 4:00pm Nohemi Spears FINANCIAL CONSULTANT, MEDICAL MICROBIOLOGIST
--- NOTE | 2021-11-30 16:06 | CASEMGMT ---
Addendum entered by Nohemi Spears 11/30/21 16:39: Plan: [facility] skilled today under Convalescent stay with Physician's transporting pt via cot at 4:00pm Original Note: Social Work Note SW attempted to call Giovana again to update, no answer, voicemail full, unable to leave message. SW has tried calling Giovana 3x to update on discharge with no answer and SW being unable to leave voicemail. Per previous conversation with pt, pt stated that he spoke with Giovana who is aware pt will be going to [facility] today. Nohemi Spears PESTICIDE USE MEDICAL COORDINATOR, IT DATA ARCHITECT
[2021-12-01 16:09] LABS: Endomysial Antibody IgA Negative (Negative)
[2021-12-01 18:04] LABS: Deamidated Gliadin IgA 3 units (0-19); Deamidated Gliadin IgG 2 units (0-19); Immunoglobulin A 131 mg/dL (61-437); t-Transglutaminase IgA <2 U/mL (0-3)
[2021-12-02 16:58] LABS: Deamidated Gliadin IgA 3 units (0-19); Deamidated Gliadin IgG 1 units (0-19); Immunoglobulin A 128 mg/dL (61-437); t-Transglutaminase IgA <2 U/mL (0-3)
== END 2021-11-30 16:19 | disposition skilled nursing facility (03) | DRG 378 ==
LOC: ED 20:36 → PCU 20:46
PROVIDERS: Anesthesiology; Internal Medicine; Internal Medicine Gastroenterology; Physician Assistant; Admitting Provider Hospitalist; Emergency Provider Emergency Medicine; PCP Internal Medicine; Visit Provider Internal Medicine
PROC: 0DJ08ZZ Inspection of Upper Intestinal Tract, Via Natural or Artificial Opening Endoscopic (ICD-10-PCS; CPT 43235; principal; 2021-11-26 11:25)
DX: K55.21 Angiodysplasia of colon with hemorrhage (principal); I13.0 Hypertensive heart and chronic kidney disease with heart failure and stage 1 through stage 4 chronic kidney disease, or unspecified chronic kidney disease; D62 Acute posthemorrhagic anemia; I50.32 Chronic diastolic (congestive) heart failure; E87.1 Hypo-osmolality and hyponatremia; E11.22 Type 2 diabetes mellitus with diabetic chronic kidney disease; E11.51 Type 2 diabetes mellitus with diabetic peripheral angiopathy without gangrene; J43.9 Emphysema, unspecified; E78.00 Pure hypercholesterolemia, unspecified; F17.210 Nicotine dependence, cigarettes, uncomplicated; N18.2 Chronic kidney disease, stage 2 (mild); F41.9 Anxiety disorder, unspecified; E87.6 Hypokalemia; K44.9 Diaphragmatic hernia without obstruction or gangrene; K63.5 Polyp of colon; G47.33 Obstructive sleep apnea (adult) (pediatric); K64.8 Other hemorrhoids; N40.0 Benign prostatic hyperplasia without lower urinary tract symptoms; Z79.02 Long term (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 of antithrombotics/antiplatelets; R79.1 Abnormal coagulation profile; Z79.01 Long term (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 of anticoagulants; N26.1 Atrophy of kidney (terminal); Z86.718 Personal history of other venous thrombosis and embolism; Z79.899 Other long term (current) drug therapy; Z79.82 Long term (current) use of aspirin; Z99.81 Dependence on supplemental oxygen; G89.29 Other chronic pain; F32.A Depression, unspecified
CPT/HCPCS: 36415; 71045; 74176; 80048; 80053; 81001; 82274; 82607; 82728; 82746; 82784; 83516; 83540; 83550; 83735; 84100; 84484; 85014; 85018; 85025; 85045; 85610; 86255; 86644; 86850; 86900; 86901; 86920; 86922; 87426; 88305; 88313; 94640; 97162; 97165; 97530; 97802; 99285; J7030; J7040; J7050; J7120; P9016; A4216; J1940; J2405; J2916; J3490; P9017

== ENCOUNTER → 2021-12-01 | Outpatient (REF) | payer SELFPAY ==
[2021-12-01 08:04] LABS: Hematocrit 29.4 % (40-54); Hemoglobin 8.3 g/dL (13.0-16.5); Mean Corp Hgb Conc 28.2 g/dL (32-36); Mean Corpuscular Hgb 24.3 pg (27.0-32.0); Mean Corpuscular Volume 86.2 fL (80-94); Mean Platelet Vol. 11.1 fl (6.2-12.0); POSITIVE MORPHOLOGY YES; Platelet Count 307 K/mm3 (150-450); RBC Distribution Width CV 26.7 % (11.6-14.6); RBC Distribution Width SD 68.4 fl (35.1-43.9); Red Blood Count 3.41 M/mm3 (4.6-6.2); White Blood Count 7.5 K/mm3 (4.4-11.0)
[2021-12-01 08:16] LABS: International Normalized Ratio 1.4; Prothrombin Time (Protime)PT. 16.9 SECONDS (11.7-14.9)
[2021-12-01 08:57] LABS: Scan Indicated on CBC? Y/N YES- FLAGS NOTED
[2021-12-01 09:25] LABS: Anion Gap 7 (5-15); BUN 14 mg/dL (7-18); BUN/Creat Ratio 14.6 RATIO (10-20); Calcium,Total 9.5 mg/dL (8.5-10.1); Chloride 105 mmol/L (98-107); Creatinine, Serum 0.96 mg/dL (0.70-1.30); EST Glomerular Filtration Rate 82 mL/min (>60); Est Glom Filt Rate - Afr Amer 99 mL/min (>60); Glucose 96 mg/dL (74-106); Potassium 3.9 mmol/L (3.5-5.1); Sodium Level 138 mmol/L (136-145)
== END | disposition home or self-care (01) ==
LOC: OLS.SW1020 05:18
PROVIDERS: PCP Internal Medicine; Referring Provider Family Medicine; Visit Provider Family Medicine
DX: D64.9 Anemia, unspecified (principal); J44.9 Chronic obstructive pulmonary disease, unspecified; Z79.899 Other long term (current) drug therapy; Z79.01 Long term (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 of anticoagulants
CPT/HCPCS: 36415; 80048; 85027; 85610

== ENCOUNTER → 2021-12-04 | Outpatient (REF) | payer SELFPAY ==
[2021-12-04 12:04] LABS: Mucous, Urine 0 SEEN /hpf (<or=2+); Red Blood Cells-Urine 0 SEEN /hpf (0-5)
[2021-12-04 12:13] LABS: Color, Urine Yellow (Yellow); Glucose, Dipstick Normal (Normal); Ketone-Dipstick Negative (Negative); Leukocyte Esterase-Dipstick 500 /ul (Negative); Nitrite-Dipstick Negative (Negative); Occult Blood-Urine 25 /ul (Negative); Protein-Dipstick Negative (Negative); Specific Gravity, Urine 1.015 (1.002-1.030); Urine Bilirubin Dipstick Negative (Negative); Urine Clarity Cloudy (Clear); Urine Urobilinogen Normal (Normal)
[2021-12-04 12:19] LABS: Squamous Epithelial Cells - UA 0-5 SEEN /hpf (0-5); White Blood Cells 0-5 SEEN /hpf (0-5)
[2021-12-04 12:20] LABS: Bacteria 4+ /hpf (None Seen)
== END | disposition home or self-care (01) ==
LOC: OLS.SW1020 06:30
PROVIDERS: PCP Internal Medicine; Visit Provider Family Medicine
DX: R30.0 Dysuria (principal)
CPT/HCPCS: 81001; 87086; 87088; 87186

== ENCOUNTER → 2021-12-06 | Outpatient (REF) | payer SELFPAY ==
[2021-12-06 09:06] LABS: Absolute Lymphocyte Count 1.64 X10^3/uL (0.83-4.51); Absolute Neutrophil Count 4.5 X10^3/uL (2.0-7.7); Basophil# 0.11 X10^3/uL; Basophil% 1.6 % (0-1); Eosinophil# 0.28 X10^3/uL; Hematocrit 35.5 % (40-54); Hemoglobin 10.2 g/dL (13.0-16.5); Lymphocyte # 1.64 X10^3/ul (0.83-4.51); Lymphocyte % 23.6 % (19-41); Mean Corp Hgb Conc 28.7 g/dL (32-36); Mean Corpuscular Hgb 26.6 pg (27.0-32.0); Mean Corpuscular Volume 92.7 fL (80-94); Mean Platelet Vol. 10.7 fl (6.2-12.0); Monocyte# 0.45 X10^3/uL; Monocyte% 6.5 % (0-10); NRBC Flagged by Analyzer 0 % (0-5); Neutrophil # 4.46 X10^3/uL (2.7-7.7); POSITIVE MORPHOLOGY YES; Platelet Count 265 K/mm3 (150-450); RBC Distribution Width CV 30.6 % (11.6-14.6); Red Blood Count 3.83 M/mm3 (4.6-6.2)
[2021-12-06 09:10] LABS: RBC Distribution Width SD 100.5 fl (35.1-43.9)
[2021-12-06 09:13] LABS: Differential Indicated SCAN CRITERIA MET
[2021-12-06 09:15] LABS: International Normalized Ratio 1.2; Prothrombin Time (Protime)PT. 14.9 SECONDS (11.7-14.9)
[2021-12-06 09:24] LABS: Anion Gap 7 (5-15); BUN 18 mg/dL (7-18); BUN/Creat Ratio 17.1 RATIO (10-20); Calcium,Total 8.9 mg/dL (8.5-10.1); Chloride 106 mmol/L (98-107); Creatinine, Serum 1.05 mg/dL (0.70-1.30); EST Glomerular Filtration Rate 74 mL/min (>60); Est Glom Filt Rate - Afr Amer 89 mL/min (>60); Glucose 75 mg/dL (74-106); Potassium 4.6 mmol/L (3.5-5.1); Sodium Level 138 mmol/L (136-145)
[2021-12-06 09:47] LABS: Anisocytosis 4+; Platelet Estimate ADEQUATE (ADEQ); Poikilocytosis 1+
[2021-12-06 09:48] LABS: Hypochromasia 1+; Macrocytosis 1+; Microcytosis 1+; Ovalocyte 2+; Tear Drop Cell 1+
== END | disposition home or self-care (01) ==
LOC: OLS.SW300 07:00
PROVIDERS: PCP Internal Medicine; Referring Provider Family Medicine; Visit Provider Family Medicine
DX: Z79.01 Long term (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 of anticoagulants (principal)
CPT/HCPCS: 36415; 80048; 85025; 85610

== ENCOUNTER → 2021-12-08 | Outpatient (REF) | payer SELFPAY ==
[2021-12-08 06:35] LABS: Hematocrit 36.1 % (40-54); Hemoglobin 10.6 g/dL (13.0-16.5); Mean Corp Hgb Conc 29.4 g/dL (32-36); Mean Corpuscular Hgb 26.8 pg (27.0-32.0); Mean Corpuscular Volume 91.2 fL (80-94); Mean Platelet Vol. 10.8 fl (6.2-12.0); POSITIVE MORPHOLOGY YES; Platelet Count 295 K/mm3 (150-450); RBC Distribution Width CV 30.4 % (11.6-14.6); RBC Distribution Width SD 97.8 fl (35.1-43.9); Red Blood Count 3.96 M/mm3 (4.6-6.2); White Blood Count 6.1 K/mm3 (4.4-11.0)
[2021-12-08 06:37] LABS: Scan Indicated on CBC? Y/N YES- FLAGS NOTED
[2021-12-08 06:43] LABS: International Normalized Ratio 1.5; Prothrombin Time (Protime)PT. 17.5 SECONDS (11.7-14.9)
[2021-12-08 06:51] LABS: Anion Gap 6 (5-15); BUN 24 mg/dL (7-18); BUN/Creat Ratio 23.1 RATIO (10-20); Calcium,Total 8.8 mg/dL (8.5-10.1); Chloride 107 mmol/L (98-107); Creatinine, Serum 1.04 mg/dL (0.70-1.30); EST Glomerular Filtration Rate 75 mL/min (>60); Est Glom Filt Rate - Afr Amer 90 mL/min (>60); Glucose 89 mg/dL (74-106); Potassium 4.3 mmol/L (3.5-5.1); Sodium Level 140 mmol/L (136-145)
[2021-12-08 06:58] LABS: Carbamazepine (Tegretol) 7.9 ug/mL (4.0-12.0)
== END | disposition home or self-care (01) ==
LOC: OLS.SW1020 04:00
PROVIDERS: PCP Internal Medicine; Referring Provider Family Medicine; Visit Provider Family Medicine
DX: D64.9 Anemia, unspecified (principal); J44.9 Chronic obstructive pulmonary disease, unspecified; Z79.899 Other long term (current) drug therapy; Z79.01 Long term (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 of anticoagulants
CPT/HCPCS: 36415; 80048; 80156; 85027; 85610

== ENCOUNTER → 2021-12-10 | Outpatient (REF) | payer SELFPAY ==
[2021-12-10 07:45] LABS: Hematocrit 38.5 % (40-54); Hemoglobin 11.5 g/dL (13.0-16.5); Mean Corp Hgb Conc 29.9 g/dL (32-36); Mean Corpuscular Hgb 27.4 pg (27.0-32.0); Mean Corpuscular Volume 91.7 fL (80-94); Mean Platelet Vol. 10.2 fl (6.2-12.0); POSITIVE MORPHOLOGY YES; Platelet Count 327 K/mm3 (150-450); RBC Distribution Width CV 29.7 % (11.6-14.6); RBC Distribution Width SD 95.8 fl (35.1-43.9); White Blood Count 5.7 K/mm3 (4.4-11.0)
[2021-12-10 07:51] LABS: Scan Indicated on CBC? Y/N YES- FLAGS NOTED
[2021-12-10 08:23] LABS: Anion Gap 6 (5-15); BUN 21 mg/dL (7-18); BUN/Creat Ratio 21.5 RATIO (10-20); Chloride 106 mmol/L (98-107); Creatinine, Serum 0.98 mg/dL (0.70-1.30); EST Glomerular Filtration Rate 80 mL/min (>60); Est Glom Filt Rate - Afr Amer 97 mL/min (>60); Glucose 94 mg/dL (74-106); Potassium 4.2 mmol/L (3.5-5.1); Sodium Level 138 mmol/L (136-145)
[2021-12-10 08:50] LABS: International Normalized Ratio 1.6; Prothrombin Time (Protime)PT. 18.3 SECONDS (11.7-14.9)
== END | disposition home or self-care (01) ==
LOC: OLS.SW1020 05:00
PROVIDERS: PCP Internal Medicine; Visit Provider Family Medicine
DX: D64.9 Anemia, unspecified (principal); J44.9 Chronic obstructive pulmonary disease, unspecified; Z79.01 Long term (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 of anticoagulants
CPT/HCPCS: 36415; 80048; 85027; 85610

== ENCOUNTER → 2021-12-17 | Outpatient (REF) | payer SELFPAY ==
[2021-12-17 08:51] LABS: INR Fingerstick 1.5; Prothrombin Time Fingerstick 18.5 SEC (11.7-14.9)
== END | disposition home or self-care (01) ==
LOC: OLS.SW300 05:00
PROVIDERS: PCP Internal Medicine; Referring Provider Family Medicine; Visit Provider Family Medicine
DX: I48.91 Unspecified atrial fibrillation (principal)
CPT/HCPCS: 36416; 85610

== ENCOUNTER → 2021-12-23 | Outpatient (REF) | payer SELFPAY ==
[2021-12-23 07:35] LABS: INR Fingerstick 2.5; Prothrombin Time Fingerstick 29.1 SEC (11.7-14.9)
== END | disposition home or self-care (01) ==
LOC: OLS.SW300 05:00
PROVIDERS: PCP Internal Medicine; Referring Provider Family Medicine; Visit Provider Family Medicine
DX: Z79.01 Long term (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 of anticoagulants (principal)
CPT/HCPCS: 36416; 85610

== ENCOUNTER → 2021-12-29 | Outpatient (REF) | payer MEDICARE, MEDICAID, SELFPAY ==
[2021-12-29 09:28] LABS: Hematocrit 36.5 % (40-54); Hemoglobin 11.6 g/dL (13.0-16.5); Mean Corp Hgb Conc 31.8 g/dL (32-36); Mean Corpuscular Hgb 30.1 pg (27.0-32.0); Mean Corpuscular Volume 94.6 fL (80-94); POSITIVE MORPHOLOGY YES; Platelet Count 207 K/mm3 (150-450); RBC Distribution Width CV 24.9 % (11.6-14.6); RBC Distribution Width SD 83.6 fl (35.1-43.9); Red Blood Count 3.86 M/mm3 (4.6-6.2); White Blood Count 5.3 K/mm3 (4.4-11.0)
[2021-12-29 09:29] LABS: Scan Indicated on CBC? Y/N YES- FLAGS NOTED
[2021-12-29 09:36] LABS: Anion Gap 4 (5-15); BUN 26 mg/dL (7-18); BUN/Creat Ratio 29.5 RATIO (10-20); Chloride 103 mmol/L (98-107); Creatinine, Serum 0.88 mg/dL (0.70-1.30); EST Glomerular Filtration Rate 90 mL/min (>60); Est Glom Filt Rate - Afr Amer 109 mL/min (>60); Glucose 89 mg/dL (74-106); Potassium 3.6 mmol/L (3.5-5.1); Sodium Level 138 mmol/L (136-145)
== END | disposition home or self-care (01) ==
LOC: OLS.SW300 06:55
PROVIDERS: PCP Internal Medicine; Visit Provider Family Medicine
DX: D64.9 Anemia, unspecified (principal); J44.9 Chronic obstructive pulmonary disease, unspecified
CPT/HCPCS: 36415; 80048; 85027

== ENCOUNTER → 2021-12-30 | Outpatient (REF) | payer MEDICARE, MEDICAID, SELFPAY ==
[2021-12-30 08:41] LABS: INR Fingerstick 2.2; Prothrombin Time Fingerstick 25.6 SEC (11.7-14.9)
== END | disposition home or self-care (01) ==
LOC: OLS.SW300 04:00
PROVIDERS: PCP Internal Medicine; Visit Provider Family Medicine
DX: I48.91 Unspecified atrial fibrillation (principal)
CPT/HCPCS: 36416; 85610

== ENCOUNTER 2022-01-28 14:01 | Emergency (ER) | payer MEDICARE, MEDICAID, SELFPAY ==
[2022-01-28 14:03] VITALS: BP 232/112; PULSE 61; RESP 16; TEMP 36; O2SAT 97; BMI 22.9
--- NOTE | 2022-01-28 14:57 | EKG12_ITS ---
Test Reason : HTN Blood Pressure : / mmHG Vent. Rate : 061 BPM Atrial Rate : 061 BPM P-R Int : 170 ms QRS Dur : 086 ms QT Int : 410 ms P-R-T Axes : 075 066 082 degrees QTc Int : 412 ms Sinus rhythm with occasional Premature ventricular complexes Otherwise normal ECG Confirmed by CARLIN RANDALL, KENNY ([id number]), order editor RAE NATH ([id number]) on 01/31/2022 10:13:15 AM Referred By: Confirmed By:KENNY GILLIS MD
--- NOTE | 2022-01-28 15:10 | EDS_ITS ---
HPI History of Present Illness Chief Complaint: Hypertension Detail of Chief Complaint: High blood pressure Informant: patient Onset/Context/Timing Onset: - (Unknown) Context: - (Unknown) Timing: - (Unknown) Quality: Systolic greater than 200 and diastolic greater than 110 Location: Cardiovascular Current Severity: Unknown Maximum Severity: Unknown Worsened by: Has not taken blood pressure meds in 3 weeks Relieved by: Nothing Associated Symptoms Associated Symptoms: Mild headache Narrative Narrative: Patient is a 71-year-old male who was admitted to [facility] 3 to 4 weeks ago for GI bleed. He was discharged to nursing facility. His blood pressure meds were discontinued because he had low blood pressure. He was informed that he does not need blood pressure medicine. He saw his PCP today. Blood pressure was elevated. He was sent to the emergency department. He denies double vision, blurred vision loss of vision. He has a traumatic injury to the right eye that occurred many years ago. His vision is altered. He denies ringing in his ears, decreased hearing or drainage from his ears. He denies rhinorrhea, postnasal drainage or congestion. He denies change in voice. He reports difficulty swallowing because he has no teeth. He denies cardiac or respiratory symptoms. He denies GI symptoms. He denies urologic symptoms. He denies new paresthesia or anesthesia. He has had problems with his anterior left thigh status post surgery 1 year ago. He has tingling of his toes which is chronic. He denies trouble with balance that is new. Prior similar symptoms: No Recent Illness/Hospitalization: Yes [facility] Medical History Asthma Atrial fibrillation Chronic pain COPD (chronic obstructive pulmonary disease) Depression Diabetes Falls frequently High cholesterol Hypertension Irregular heart beat Kidney stones On home oxygen therapy Pancreatitis Seizures Sleep apnea Smoker Stroke/cerebrovascular accident Home Medications tamsulosin 0.4 mg capsule 0.4 mg PO QHS bph 01/26/14 [History Last Taken 10/25/19 08:33] finasteride 5 mg tablet 5 mg PO DAILY prostate 11/14/14 [History Last Taken 10/25/19 08:35] atorvastatin 40 mg tablet 40 mg PO QHS Cholesterol 09/23/15 [History Last Taken 03/25/20] metoprolol tartrate 25 mg tablet 12.5 mg PO BID Bp 12/02/15 [History Last Taken 03/26/20] sertraline 50 mg tablet 100 mg PO DAILY mood stabilizer 12/02/15 [History Last Taken 10/25/19 08:35] mirtazapine 15 mg tablet 15 mg PO QHS anti depressant 08/16/19 [History Last Taken 10/25/19 20:18] clopidogrel 75 mg tablet 75 mg PO DAILY blood thinner 10/25/19 [History Last Taken 03/26/20] carbamazepine 200 mg tablet 200 mg PO Q12H Check with primary doctor 10/26/19 [History Last Taken 10/25/19 20:18] albuterol sulfate 2.5 mg/3 mL (0.083 %) solution for nebulization 2.5 mg (3 mL) inhalation Q4H PRN PRN sob/wheezing 08/12/20 [Rx Last Taken Unknown] losartan 100 mg tablet 100 mg PO DAILY Blood pressure 08/19/21 [History Last Taken Unknown] pantoprazole 40 mg tablet,delayed release 40 mg PO DAILY GERD 08/19/21 [History Last Taken Unknown] lidocaine 5 % topical patch 1 patch topical DAILY 10/08/21 [History Last Taken Unknown] nifedipine 90 mg tablet,extended release 90 mg PO DAILY 11/25/21 [History Last Taken Unknown] acetaminophen 325 mg tablet (Tylenol) 650 mg PO Q6H PRN PRN Pain 1-10 Or Fever #0 tabs 11/30/21 [Rx Last Taken Unknown] alendronate 70 mg tablet 70 mg PO QWEEK #1 TAB 11/30/21 [Rx Last Taken Unknown] ferrous sulfate 325 mg (65 mg iron) tablet (FeroSul) 325 mg PO BID #1 TAB 11/30/21 [Rx Last Taken Unknown] food supplemt, lactose-reduced (Ensure Clear oral liquid) 120 ml PO 4X/DAY #0 mL 11/30/21 [Rx Last Taken Unknown] ipratropium 0.5 mg-albuterol 3 mg (2.5 mg base)/3 mL nebulization soln 3 ml inhalation 4XD #3 mL 11/30/21 [Rx Last Taken Unknown] nicotine 21 mg/24 hr daily transdermal patch 21 mg transdermal DAILY #0 ea 11/30/21 [Rx Last Taken Unknown] warfarin 6 mg tablet (Jantoven) 6 mg PO DINNER #0 tabs 11/30/21 [Rx Last Taken Unknown] metoprolol succinate 25 mg tablet,extended release 24 hr 25 mg PO DAILY #30 tabs 01/28/22 [Rx Last Taken Unknown] nifedipine 30 mg tablet,extended release 30 mg PO DAILY #30 tabs 01/28/22 [Rx Last Taken Unknown] Allergy/AdvReac Type Severity Reaction Status Date / Time No Known Allergies Allergy Verified 01/28/22 14:04 Family History Other Heart disease Surgical History History of appendectomy S/P arterial stent Social History (Updated 01/28/22 @ 15:[address] Fco Monroy MD) household members: none Smoking Status: Current every day smoker tobacco type: cigarettes alcohol intake: former details: Former 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 ROS ED Constitutional Constitutional ED: Denies chills, fever(s), subjective, sweats or weight loss Eyes Eyes: Reports other Details: Traumatic injury right I with altered vision ; Denies blurry vision, change in vision or diplopia ENT ENT ED: Denies ear pain, rhinorrhea or sore throat Cardiovascular Cardiovascular: Denies chest pain, orthopnea, palpitations, paroxysmal nocturnal dyspnea or racing heartbeat Respiratory/Chest Respiratory/Chest: Denies cough, dyspnea, dyspnea on exertion, orthopnea or paroxysmal nocturnal dyspnea Gastrointestinal Gastrointestinal: Denies abdominal pain, constipation, melena, nausea or vomiting Genitourinary Genitourinary ED: Denies dysuria, hematuria or urinary frequency Musculoskeletal Musculoskeletal: Reports other Details: Left anterior thigh pain documented in the narrative portion of the HPI ; Denies arthralgias, back pain, myalgias or neck pain Integumentary Denies rash Neurologic Neurologic: Reports headache(s) and paresthesias; Denies weakness Hematologic/Lymphatic Hematologic/Lymphatic: Reports anemia; Denies easy bleeding or easy bruising EXAM Physical Exam Const Vital Signs: 01/28/22 14:03 01/28/22 15:15 01/28/22 15:53 Temperature 96.8 F L Temperature Source Temporal Pulse Rate 61 54 L Respiratory Rate 16 20 H Respiratory Effort Normal Non-Labored Respiratory Pattern Normal Blood Pressure 232/112 H 200/88 H Blood Pressure Mean 152 125 Pulse Ox 97 97 Oxygen Delivery Method Room Air Room Air Positive well nourished, well developed and unkempt; Negative for obese, cachectic or contractures General Appearance ED: unkempt, well developed and NAD; Negative for cachectic, contractures, cyanotic, diaphoretic or pallor Nutritional Appearance: Negative for cachectic or obese HEENT Reports TM's clear and moist mucous membranes HEENT Narrative: Ears are normal. Nares patent. Uvula midline. No erythema or exudate. Negative for trauma or tenderness Tympanic Membrane ED: Yes TM's clear Eyes Negative for PERRL or EOMs intact bilaterally Eyes Narrative: Patient does have outward deviation of the right eye. Gaze is conjugate. Patient has deformity to the pupil due to prior traumatic injury. General Eye ED: Negative for pale conjunctiva or scleral icterus Neck no lymphadenopathy, supple and no JVD Chest Wall inspection of chest normal and palpation of chest normal Resp normal respiratory effort and clear to auscultation bilaterally Cardio regular rate, regular rhythm, S1 normal heart sound, S2 normal heart sound and no murmurs GI normal to inspection, nondistended, normoactive bowel sounds, non-tender, non- distended and no masses; Negative for hepatosplenomegaly Palpation: soft Back/Spine no CVA tenderness Cervical Spine: Negative for cervical spine tenderness Thoracic Spine / Upper Back: Negative for thoracic spinal tenderness Lumbar Spine / Lower Back: Negative for lumbar spinal tenderness Extremity Negative for normal to inspection Extremity Narrative: Patient has stigmata of peripheral arterial disease. Neuro oriented x3, CN's II-XII intact bilaterally and No no sensory deficits noted Neuro Narrative: Acute sensation distal feet due to chronic issue most likely neuropathy from PAD. Sensorium / Orientation: alert Motor Exam: strength 5/5 throughout Psych mental status grossly normal Psych Narrative: Patient has a harsh voice. Patient is perturbed and voiced he was perturbed bec ause no one has done anything for his blood pressure. Appearance: unkempt Skin no rashes or lesions noted and no wounds General Skin Exam: Negative for jaundice or pallor MDM MDM MDM Narrative Medical decision making narrative: Patient with essentially asymptomatic hypertension. His hypertension is due to discontinuation of his medication. He was told he did not need to take them and they were not resumed when he was discharged from the nursing facility 3 weeks ago. Will obtain appropriate work-up to assess for endorgan injury. Blood pressure at 1549 is 210/92. Since patient has no objective findings and no evidence of endorgan injury will start patient on nifedipine 30 mg XL and metoprolol 25 mg. He was on nifedipine 90 mg XL. Patient was informed it is not appropriate since there is no evidence of endorgan injury to lower his blood pressure abruptly. He will need to follow-up with Dr. Mohan his primary care physician in 1 to 2 weeks to have his blood pressure reassessed and adjust medication as needed. Lab Data Attestation: I reviewed the patient's lab results. Lab results narrative: There is no evidence of endorgan injury. Patient had proteinuria on prior urinalysis. Labs: Laboratory Results - last 24 hr 01/28/22 01/28/22 01/28/22 15:00 15:10 15:10 WBC 6.0 RBC 5.14 Hgb 16.2 Hct 49.1 MCV 95.5 H MCH 31.5 MCHC 33.0 RDW Std Deviation 54.1 H RDW Coeff of Aly 16.9 H Plt Count 250 MPV 9.8 Sodium 135 L Potassium 4.0 Chloride 99 Carbon Dioxide 31.0 Anion Gap 5 BUN 12 Creatinine 1.02 Estim Creat Clear Calc 63.33 Est GFR (MDRD) Af Amer 92 Est GFR (MDRD) Non-Af 76 BUN/Creatinine Ratio 11.8 Glucose 110 H Calcium 10.3 H Urine Color Yellow Urine Clarity Clear Urine pH 6.5 Ur Specific [place] 1.015 Urine Protein 100 H Urine Glucose (UA) Normal Urine Ketones Negative Urine Occult Blood 10 H Urine Nitrite Negative Urine Bilirubin Negative Urine Urobilinogen Normal Ur Leukocyte Esterase Negative Urine RBC 0 SEEN Urine WBC 0 SEEN Ur Squamous Epith Cells 0 SEEN Urine Bacteria 0 SEEN Urine Mucus 0 SEEN EKG Initial EKG: Attestation: I personally reviewed and interpreted this EKG as follows: Interpretation: Sinus Rhythm (Rate is 61. [place] intervals 170. Cures duration 86. QT duration of 110 ms. [place] is normal. There are premature ventricular beats noted.) Prior: Unchanged Discharge Plan Triage Chief Complaint: Hypertension ED Provider: Fco Monroy Dx/Rx/DC Orders Clinical Impression: Accelerated essential hypertension, History of COPD, History of peripheral arterial disease, Asymptomatic proteinuria Prescriptions: New metoprolol succinate 25 mg tablet extended release 24 hr 25 mg PO DAILY Qty: 30 0RF nifedipine 30 mg tablet extended release 30 mg PO DAILY Qty: 30 0RF No Action tamsulosin 0.4 MG capsule 0.4 mg PO QHS Label Comments: Prostate and urine finasteride 5 MG tablet 5 mg PO DAILY Label Comments: prostate atorvastatin 40 MG tablet 40 mg PO QHS Label Comments: CHOLESTEROL sertraline 50 MG tablet 100 mg PO DAILY Label Comments: depression metoprolol tartrate 25 MG tablet 12.5 mg PO BID Label Comments: blood pressure / heart rate mirtazapine 15 MG tablet 15 mg PO QHS clopidogrel 75 MG tablet 75 mg PO DAILY carbamazepine 200 MG tablet 200 mg PO Q12H Label Comments: face pain albuterol sulfate 2.5 MG/3 ML solution for nebulization 2.5 mg INHALATION Q4H PRN PRN (Reason: sob/wheezing) 0RF losartan 100 mg tablet 100 mg PO DAILY pantoprazole 40 mg tablet,delayed release (DR/EC) 40 mg PO DAILY lidocaine 5 % adhesive patch,medicated 1 patch topical DAILY Label Comments: PLACE 1 PATCH ON TO CLEAN INTACT SKIN FOR UP TO 12 HOURS IN A 24 HOUR PERIOD nifedipine 90 mg tablet extended release 90 mg PO DAILY acetaminophen [Tylenol] 325 mg Tablet 650 mg PO Q6H PRN PRN (Reason: Pain 1-10 Or Fever) Qty: 0 0RF Ensure Clear Liquid 120 ml PO 4X/DAY Qty: 0 0RF ferrous sulfate [FeroSul] 325 mg (65 mg iron) Tablet 325 mg PO BID Qty: 1 0RF ipratropium-albuterol 0.5 mg-3 mg(2.5 mg base)/3 mL Solution For Nebulization 3 ml inhalation 4XD Qty: 3 0RF nicotine 21 mg/24 hr Patch 24 Hour 21 mg transdermal DAILY Qty: 0 0RF warfarin [Jantoven] 6 mg Tablet 6 mg PO DINNER Qty: 0 0RF alendronate 70 mg tablet 70 mg PO QWEEK Qty: 1 0RF Primary Care Provider: Daija Douglas Referrals: Daija Douglas MD [Primary Care Provider] - 1-2 Weeks Activity Restrictions/Additional Instructions: Call Dr. Anderson's office for blood pressure check in 1 to 2 weeks. She may need to adjust your medication dosage. Disposition Disposition: Home, Self Care
[2022-01-28 15:16] LABS: Bacteria 0 SEEN /hpf (None Seen); Mucous, Urine 0 SEEN /hpf (<or=2+); Red Blood Cells-Urine 0 SEEN /hpf (0-5); Squamous Epithelial Cells - UA 0 SEEN /hpf (0-5); White Blood Cells 0 SEEN /hpf (0-5)
[2022-01-28 15:18] LABS: Hematocrit 49.1 % (40-54); Hemoglobin 16.2 g/dL (13.0-16.5); Mean Corpuscular Hgb 31.5 pg (27.0-32.0); Mean Corpuscular Volume 95.5 fL (80-94); Mean Platelet Vol. 9.8 fl (6.2-12.0); Platelet Count 250 K/mm3 (150-450); RBC Distribution Width CV 16.9 % (11.6-14.6); RBC Distribution Width SD 54.1 fl (35.1-43.9); Red Blood Count 5.14 M/mm3 (4.6-6.2)
[2022-01-28 15:25] LABS: Color, Urine Yellow (Yellow); Glucose, Dipstick Normal (Normal); Ketone-Dipstick Negative (Negative); Leukocyte Esterase-Dipstick Negative /ul (Negative); Nitrite-Dipstick Negative (Negative); Occult Blood-Urine 10 /ul (Negative); Protein-Dipstick 100 mg/dl (Negative); Specific Gravity, Urine 1.015 (1.002-1.030); Urine Bilirubin Dipstick Negative (Negative); Urine Clarity Clear (Clear); Urine Urobilinogen Normal (Normal); Urine pH 6.5 (5.0 - 8.0)
[2022-01-28 15:32] LABS: Anion Gap 5 (5-15); BUN 12 mg/dL (7-18); BUN/Creat Ratio 11.8 RATIO (10-20); Calcium,Total 10.3 mg/dL (8.5-10.1); Chloride 99 mmol/L (98-107); Creatinine, Serum 1.02 mg/dL (0.70-1.30); EST Glomerular Filtration Rate 76 mL/min (>60); Est Glom Filt Rate - Afr Amer 92 mL/min (>60); Estimated Creatinine Clearance 63.33 ml/min; Glucose 110 mg/dL (74-106); Sodium Level 135 mmol/L (136-145)
[2022-01-28 15:53] VITALS: BP 200/88; PULSE 54; RESP 20; O2SAT 97
[2022-01-28] MEDS: Metoprolol Tartrate 25 MG Tablet PO (16:15)
[2022-01-28] MEDS: NIFEdipine 30 MG Tablet PO (16:15)
== END 2022-01-28 16:23 | disposition home or self-care (01) ==
PROVIDERS: Emergency Provider Emergency Medicine; PCP Internal Medicine; Visit Provider Emergency Medicine
DX: I10 Essential (primary) hypertension (principal); F17.210 Nicotine dependence, cigarettes, uncomplicated; G47.30 Sleep apnea, unspecified; R80.9 Proteinuria, unspecified; Z86.73 Personal history of transient ischemic attack (TIA), and cerebral infarction without residual deficits; Z99.81 Dependence on supplemental oxygen
CPT/HCPCS: 80048; 81001; 85027; 93005; 99284; A4216

== ENCOUNTER 2022-03-02 15:10 | Emergency (ER) | payer MEDICARE, MEDICAID, SELFPAY ==
[2022-03-02 15:10] VITALS: BP 227/105; PULSE 75; RESP 19; TEMP 36.6; O2SAT 94; BMI 23.5
--- NOTE | 2022-03-02 15:45 | EKG12_ITS ---
Test Reason : GEN ILLNESS Blood Pressure : / mmHG Vent. Rate : 073 BPM Atrial Rate : 073 BPM P-R Int : 162 ms QRS Dur : 080 ms QT Int : 388 ms P-R-T Axes : 051 058 079 degrees QTc Int : 427 ms Sinus rhythm with Premature atrial complexes Otherwise normal ECG Confirmed by DIMAS RANDALL, NATE ([id number]), commissioning editor RAE NATH ([id number]) on 03/04/2022 10:03:03 AM Referred By: MISSY Confirmed By:NATE COCHRAN MD
--- NOTE | 2022-03-02 15:46 | EX.ED.DYSGE1 ---
HPI History of Present Illness Chief Complaint: General Illness Narrative Narrative: Presented with abdominal pain. He states in the bilateral lower quadrants. Patient states he has not had much stool but has had bowel movements. Patient states this has been an ongoing problem for months when he was seen by surgery here at [facility]. He was admitted for acute cholecystitis and had a cholecystostomy tube placed. He ultimately was transferred to [facility]. Patient states he saw Dr. Badillo there. Patient did not have cholecystectomy here at the hospital because he was having issues with hypoxia and hypertension. Since that time he has followed up with Dr. Badillo and he was told that he cannot have any surgery because it would be difficult because of his breathing issues. He recommended that he quit smoking and he would be able to reevaluate him for surgery. The patient states he has not quit smoking. He states that the abdominal pain he is experienced today is lower in the abdomen is not in the right upper quadrant. He states that this has been ongoing for months. Patient does report that he started having some epigastric pain/chest pain 2 days ago. Patient states this is new. He does not have shortness of breath. Is not had fever, chills. [facility] Medical History Asthma Atrial fibrillation Chronic pain COPD (chronic obstructive pulmonary disease) Depression Diabetes Falls frequently High cholesterol Hypertension Irregular heart beat Kidney stones On home oxygen therapy Pancreatitis Seizures Sleep apnea Smoker Stroke/cerebrovascular accident Home Medications tamsulosin 0.4 mg capsule 0.4 mg PO QHS bph 01/26/14 [History Last Taken 10/25/19 08:33] finasteride 5 mg tablet 5 mg PO DAILY prostate 11/14/14 [History Last Taken 10/25/19 08:35] atorvastatin 40 mg tablet 40 mg PO QHS Cholesterol 09/23/15 [History Last Taken 03/25/20] sertraline 50 mg tablet 100 mg PO DAILY mood stabilizer 12/02/15 [History Last Taken 10/25/19 08:35] mirtazapine 15 mg tablet 15 mg PO QHS anti depressant 08/16/19 [History Last Taken 10/25/19 20:18] clopidogrel 75 mg tablet 75 mg PO DAILY blood thinner 10/25/19 [History Last Taken 03/26/20] carbamazepine 200 mg tablet 200 mg PO Q12H Check with primary doctor 10/26/19 [History Last Taken 10/25/19 20:18] albuterol sulfate 2.5 mg/3 mL (0.083 %) solution for nebulization 2.5 mg (3 mL) inhalation Q4H PRN PRN sob/wheezing 08/12/20 [Rx Last Taken Unknown] losartan 100 mg tablet 100 mg PO DAILY Blood pressure 08/19/21 [History Last Taken Unknown] pantoprazole 40 mg tablet,delayed release 40 mg PO DAILY GERD 08/19/21 [History Last Taken Unknown] lidocaine 5 % topical patch 1 patch topical DAILY 10/08/21 [History Last Taken Unknown] nifedipine 90 mg tablet,extended release 90 mg PO DAILY 11/25/21 [History Last Taken Unknown] acetaminophen 325 mg tablet (Tylenol) 650 mg PO Q6H PRN PRN Pain 1-10 Or Fever #0 tabs 11/30/21 [Rx Last Taken Unknown] alendronate 70 mg tablet 70 mg PO QWEEK #1 TAB 11/30/21 [Rx Last Taken Unknown] ferrous sulfate 325 mg (65 mg iron) tablet (FeroSul) 325 mg PO BID #1 TAB 11/30/21 [Rx Last Taken Unknown] food supplemt, lactose-reduced (Ensure Clear oral liquid) 120 ml PO 4X/DAY #0 mL 11/30/21 [Rx Last Taken Unknown] ipratropium 0.5 mg-albuterol 3 mg (2.5 mg base)/3 mL nebulization soln 3 ml inhalation 4XD #3 mL 11/30/21 [Rx Last Taken Unknown] nicotine 21 mg/24 hr daily transdermal patch 21 mg transdermal DAILY #0 ea 11/30/21 [Rx Last Taken Unknown] metoprolol succinate 25 mg tablet,extended release 24 hr 25 mg PO DAILY #30 tabs 01/28/22 [Rx Last Taken Unknown] Allergy/AdvReac Type Severity Reaction Status Date / Time No Known Allergies Allergy Verified 03/02/22 15:18 Family History Other Heart disease Surgical History History of appendectomy S/P arterial stent Social History (Updated 01/28/22 @ 15:[address] Fco Monroy MD) household members: none Smoking Status: Current every day smoker tobacco type: cigarettes alcohol intake: former details: Former alcoholic EXAM Physical Exam Const Vital Signs: 03/02/22 15:10 03/02/22 15:29 03/02/22 17:41 Temperature 97.9 F 97.5 F L Temperature Source Temporal Oral Pulse Rate 75 59 L Respiratory Rate 19 H 19 H Respiratory Effort Normal Non-Labored Respiratory Pattern Normal Blood Pressure 227/105 H 197/69 H Blood Pressure Mean 145 111 Pulse Ox 94 93 Oxygen Delivery Method Room Air Room Air 03/02/22 19:05 Temperature Temperature Source Pulse Rate 56 L Respiratory Rate 18 Respiratory Effort Respiratory Pattern Blood Pressure 209/81 H Blood Pressure Mean 123 Pulse Ox 92 Oxygen Delivery Method Room Air MDM MDM MDM Narrative Medical decision making narrative: Patient presenting with chronic abdominal pain although today it is lower in his abdomen. He is also complaining of some chest discomfort in the epigastrium. I obtained an EKG which shows a normal sinus rhythm with a ventricular rate of 73 bpm without sign of ischemic and occasional PACs. Chest x-ray on my interpretation shows no acute cardiopulmonary process and radiologist does agree. Patient treated with morphine and Zofran while here in the ED. CBC and CMP are unremarkable. Lipase is within normal limits. I did obtain a CT of the abdomen pelvis which shows no acute abnormalities and chronic abdominal findings. Patient has had this pain in his epigastric for 3 days constantly and I do not believe he needs a delta troponin or another EKG. I do not believe he needs to be admitted for this. Since his blood work and CAT scan are normal I do not believe he needs anything from a GI aspect or surgical aspect. I did prenatal genetic counselor him that if he needed follow-up for his gallbladder that he should see Dr. Badillo at [facility]. I recommended that he quit smoking cigarettes as this has been holding back his surgery on his gallbladder. He is a poor surgical candidate at this point because of it. Patient will be discharged home in stable condition. Impression: 1. Chest pain?noncardiac 2. abdominal pain 3. Tobacco abuse Lab Data Attestation: I reviewed the patient's lab results. Labs: Laboratory Results - last 24 hr 03/02/22 03/02/22 14:57 14:57 WBC 6.8 RBC 5.14 Hgb 16.3 Hct 48.8 MCV 94.9 H MCH 31.7 MCHC 33.4 RDW Std Deviation 47.0 H RDW Coeff of Aly 13.9 Plt Count 296 MPV 9.9 Immature Gran % (Auto) 0.600 Neut % (Auto) 67.4 Lymph % (Auto) 22.8 [place] % (Auto) 7.3 Eos % (Auto) 1.0 Baso % (Auto) 0.9 Absolute Neuts (auto) 4.6 Absolute Lymphs (auto) 1.54 Nucleated RBC % 0 Sodium 138 Potassium 3.8 Chloride 101 Carbon Dioxide 30.0 Anion Gap 7 BUN 16 Creatinine 1.08 Estim Creat Clear Calc 59.81 Est GFR (MDRD) Af Amer 86 Est GFR (MDRD) Non-Af 71 BUN/Creatinine Ratio 14.8 Glucose 98 Calcium 9.7 Total Bilirubin 0.20 AST 15 ALT 27 Alkaline Phosphatase 67 Troponin I High Sens 18 Total Protein 7.5 Albumin 3.8 Globulin 3.7 Albumin/Globulin Ratio 1.0 Lipase 95 Radiography Diagnostic Testing: Clinical Impression(s) from Imaging Studies Chest X-Ray 03/02/22 16:04 IMPRESSION: There are no acute findings. 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 Decrease in size of the hypodensity of the right kidney. Other findings as above. Electronically Signed: Raymundo Duron MD at 18:01 EDT , Discharge Plan Triage Chief Complaint: General Illness ED Provider: Skip Adler Dx/Rx/DC Orders Prescriptions: No Action tamsulosin 0.4 MG capsule 0.4 mg PO QHS Label Comments: Prostate and urine finasteride 5 MG tablet 5 mg PO DAILY Label Comments: prostate atorvastatin 40 MG tablet 40 mg PO QHS Label Comments: CHOLESTEROL sertraline 50 MG tablet 100 mg PO DAILY Label Comments: depression mirtazapine 15 MG tablet 15 mg PO QHS clopidogrel 75 MG tablet 75 mg PO DAILY carbamazepine 200 MG tablet 200 mg PO Q12H Label Comments: face pain albuterol sulfate 2.5 MG/3 ML solution for nebulization 2.5 mg INHALATION Q4H PRN PRN (Reason: sob/wheezing) 0RF losartan 100 mg tablet 100 mg PO DAILY pantoprazole 40 mg tablet,delayed release (DR/EC) 40 mg PO DAILY lidocaine 5 % adhesive patch,medicated 1 patch topical DAILY Label Comments: PLACE 1 PATCH ON TO CLEAN INTACT SKIN FOR UP TO 12 HOURS IN A 24 HOUR PERIOD nifedipine 90 mg tablet extended release 90 mg PO DAILY acetaminophen [Tylenol] 325 mg Tablet 650 mg PO Q6H PRN PRN (Reason: Pain 1-10 Or Fever) Qty: 0 0RF Ensure Clear Liquid 120 ml PO 4X/DAY Qty: 0 0RF ferrous sulfate [FeroSul] 325 mg (65 mg iron) Tablet 325 mg PO BID Qty: 1 0RF ipratropium-albuterol 0.5 mg-3 mg(2.5 mg base)/3 mL Solution For Nebulization 3 ml inhalation 4XD Qty: 3 0RF nicotine 21 mg/24 hr Patch 24 Hour 21 mg transdermal DAILY Qty: 0 0RF alendronate 70 mg tablet 70 mg PO QWEEK Qty: 1 0RF metoprolol succinate 25 mg tablet extended release 24 hr 25 mg PO DAILY Qty: 30 0RF Primary Care Provider: Daija Douglas Referrals: Daija Douglas MD [Primary Care Provider] -
[2022-03-02 15:56] LABS: Absolute Lymphocyte Count 1.54 X10^3/uL (0.83-4.51); Absolute Neutrophil Count 4.6 X10^3/uL (2.0-7.7); Basophil# 0.06 X10^3/uL; Basophil% 0.9 % (0-1); Eosinophil# 0.07 X10^3/uL; Hematocrit 48.8 % (40-54); Hemoglobin 16.3 g/dL (13.0-16.5); Lymphocyte # 1.54 X10^3/ul (0.83-4.51); Lymphocyte % 22.8 % (19-41); Mean Corp Hgb Conc 33.4 g/dL (32-36); Mean Corpuscular Hgb 31.7 pg (27.0-32.0); Mean Corpuscular Volume 94.9 fL (80-94); Mean Platelet Vol. 9.9 fl (6.2-12.0); Monocyte# 0.49 X10^3/uL; Monocyte% 7.3 % (0-10); NRBC Flagged by Analyzer 0 % (0-5); Neutrophil # 4.55 X10^3/uL (2.7-7.7); Neutrophil % 67.4 % (47-70); Platelet Count 296 K/mm3 (150-450); RBC Distribution Width CV 13.9 % (11.6-14.6); Red Blood Count 5.14 M/mm3 (4.6-6.2); White Blood Count 6.8 K/mm3 (4.4-11.0)
--- NOTE | 2022-03-02 16:04 | RAD_ITS ---
STUDY: X-RAY CHEST REASON FOR EXAM: Male, 71 years old. chest pain TECHNIQUE: XR Chest 1 View COMPARISON: 10/08/2021 FINDINGS: There is no demonstrated pleural abnormality. Normal size heart. Normal mediastinum and gale. Normal visualized pulmonary arteries. There is atherosclerotic calcification of the aortic arch with tortuosity. There are diffuse degenerative changes of the visualized thoracic spine. There is degenerative osteoarthritis of the bilateral shoulders. There is no demonstrated abnormality of the visualized soft tissue structures of the upper abdomen. RAD/Chest 1 View (Portable) IMPRESSION: There are no acute findings. Electronically Signed: Raymundo Duron MD at 16:14 EDT ,
[2022-03-02 16:18] LABS: AST(SGOT) 15 U/L (15-37); Alanine Aminotransfer ALT/SGPT 27 U/L (16-61); Albumin, Serum 3.8 g/dL (3.2-5.0); Alkaline Phosphatase 67 U/L (45-117); Anion Gap 7 (5-15); BUN 16 mg/dL (7-18); BUN/Creat Ratio 14.8 RATIO (10-20); Calcium,Total 9.7 mg/dL (8.5-10.1); Chloride 101 mmol/L (98-107); Creatinine, Serum 1.08 mg/dL (0.70-1.30); EST Glomerular Filtration Rate 71 mL/min (>60); Est Glom Filt Rate - Afr Amer 86 mL/min (>60); Estimated Creatinine Clearance 59.81 ml/min; Globulin 3.7 g/dL (2.2-4.2); Glucose 98 mg/dL (74-106); Lipase 95 U/L (73-393); Potassium 3.8 mmol/L (3.5-5.1); Protein, Total 7.5 g/dL (6.4-8.2); Sodium Level 138 mmol/L (136-145); Troponin-I HS 18 pg/mL (3.0-78.0)
[2022-03-02] MEDS: Ondansetron 4 MG/2 ML Vial IV (16:26)
[2022-03-02] MEDS: Morphine 4 MG/ML Syringe IV (16:31)
--- NOTE | 2022-03-02 17:25 | CT_ITS ---
STUDY: CT Abdomen And Pelvis W/ Contrast Injection 03/02/2022 5:54 PM REASON FOR EXAM: Male, 71 years old. Abdominal pain ab pain Individualized dose optimization techniques were used for this CT. COMPARISON: 10/08/2021 . TECHNIQUE: CT Abdomen And Pelvis W/ Contrast Injection IV 100mL [id number] FINDINGS: There are atherosclerotic calcifications of visualized coronary arteries. The visualized portions of the heart are within normal limits. Normal liver. Normal gallbladder and extrahepatic biliary system. Normal spleen. Normal pancreas. Stable 38 mm left adrenal mass. Decrease in size of the hypodensity of the right kidney. There is moderate cortical atrophy of the left kidney, consistent with chronic medical renal disease. Normal visualized stomach. Normal small intestine. Stool throughout the colon. There are surgical clips in the region of the appendix consistent with a prior appendectomy. 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 There are calcifications of the abdominal aorta. This is consistent for atherosclerotic disease. There is NO abdominal aortic aneurysm. Vascular workup can be obtained based on clinical correlation. Normal inferior vena cava. Subcentimeter mesenteric lymph nodes. There is a right inguinal hernia containing fat. There is no bowel involvement. There is no incarceration. There is no findings suggesting that this is causing a bowel obstruction. Normal urinary bladder. There are prostatic calcifications.Stable sclerotic foci in the pelvic bone. There is an umbilical hernia containing fat. There are diffuse degenerative changes of the visualized lumbar spine. Stable compression deformity of L2. Stable compression formation of L3. 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 Decrease in size of the hypodensity of the right kidney. Other findings as above. Electronically Signed: Raymundo Duron MD at 18:01 EDT ,
[2022-03-02 17:41] VITALS: BP 197/69; PULSE 59; RESP 19; TEMP 36.4; O2SAT 93
[2022-03-02 19:05] VITALS: BP 209/81; PULSE 56; RESP 18; O2SAT 92
== END 2022-03-02 20:14 | disposition home or self-care (01) ==
PROVIDERS: Emergency Provider Student in an Organized Health Care Education/Training Program; PCP Internal Medicine; Visit Provider Student in an Organized Health Care Education/Training Program
DX: R07.89 Other chest pain (principal); J44.9 Chronic obstructive pulmonary disease, unspecified; R10.30 Lower abdominal pain, unspecified; E78.00 Pure hypercholesterolemia, unspecified; I10 Essential (primary) hypertension; G47.30 Sleep apnea, unspecified; F17.210 Nicotine dependence, cigarettes, uncomplicated; F32.A Depression, unspecified; Z86.73 Personal history of transient ischemic attack (TIA), and cerebral infarction without residual deficits; Z99.81 Dependence on supplemental oxygen; Z79.899 Other long term (current) drug therapy
CPT/HCPCS: 71045; 74177; 80053; 83690; 84484; 85025; 93005; 96374; 96375; 99285; Q9967; A4216; J2405

== ENCOUNTER 2022-03-07 15:22 | Emergency (ER) | payer MEDICARE, MEDICAID, SELFPAY ==
[2022-03-07 15:23] VITALS: BP 193/88; PULSE 84; RESP 16; TEMP 36.3; O2SAT 93; BMI 20.5
--- NOTE | 2022-03-07 15:34 | RAD_ITS ---
STUDY: X-RAY - UNILATERAL RIBS ( LEFT ) WITH CHEST REASON FOR EXAM: Male, 71 years old. INJURY TECHNIQUE - RIBS: 4 view(s) of the ribs. TECHNIQUE - CHEST: Single PA view of the chest. COMPARISON: 03/02/2022 FINDINGS - RIBS: Normal visualized ribs without a demonstrated fracture. FINDINGS - CHEST: There is hyperinflation of the lungs consistent with chronic obstructive lung disease (COPD). There is no demonstrated pleural abnormality. Normal size heart. Normal mediastinum and gale. Normal visualized pulmonary arteries. Normal visualized aortic arch and descending thoracic aorta. Normal visualized thoracic spine. Normal visualized ribs, clavicles, and shoulders. There is no demonstrated abnormality of the visualized soft tissue structures of the upper abdomen. RAD/Ribs Uni Min 3V w/PA Chest IMPRESSION: RIBS: Normal x-ray examination of the ribs. CHEST: Normal x-ray examination of the chest. Electronically Signed: Job Puentes MD at 16:10 EDT ,
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
[2022-03-07] MEDS: HYDROcodone Bitartrate/Apap 5/325 Tablet PO (17:22)
[2022-03-07 17:28] VITALS: RESP 18
== END 2022-03-07 17:39 | disposition home or self-care (01) ==
PROVIDERS: Emergency Provider Emergency Medicine; PCP Internal Medicine; Visit Provider Emergency Medicine
DX: S20.211A Contusion of right front wall of thorax, initial encounter (principal); S51.811A Laceration without foreign body of right forearm, initial encounter; S51.812A Laceration without foreign body of left forearm, initial encounter; F17.210 Nicotine dependence, cigarettes, uncomplicated; G47.30 Sleep apnea, unspecified; Z99.81 Dependence on supplemental oxygen; Y09 Assault by unspecified means
CPT/HCPCS: 71101; 99283

== ENCOUNTER 2022-03-08 17:30 | Emergency (ER) | payer MEDICARE, MEDICAID, SELFPAY ==
[2022-03-08 17:31] VITALS: BP 217/113; PULSE 88; RESP 15; TEMP 36.4; O2SAT 98; BMI 20.5
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
[2022-03-08] MEDS: HYDROcodone Bitartrate/Apap 5/325 Tablet PO (20:46)
--- NOTE | 2022-03-08 20:55 | RAD_ITS ---
STUDY: X-RAY - UNILATERAL RIBS ( LEFT ) WITH CHEST REASON FOR EXAM: Male, 71 years old. fall TECHNIQUE - RIBS: 4 view(s) of the ribs. TECHNIQUE - CHEST: PA COMPARISON: None. FINDINGS - RIBS: Acute nondisplaced fracture of the left ninth and seventh ribs. Old healed fracture of the fifth rib FINDINGS - CHEST: The lungs are clear and expanded. There is no demonstrated pleural abnormality. Normal size heart. Normal mediastinum and gale. Normal visualized pulmonary arteries. Mildly calcified aortic arch and descending thoracic aorta. Dorsal spine demonstrates mild scoliosis and degenerative change Normal visualized , clavicles, and shoulders. There is no demonstrated abnormality of the visualized soft tissue structures of the upper abdomen. RAD/Ribs Uni Min 3V w/PA Chest IMPRESSION: RIBS: Acute nondisplaced fractures of left ninth and seventh.. CHEST: No acute cardiopulmonary pathology. Specifically no evidence for pneumothorax. Electronically Signed: Gonzales Chaney MD at 21:20 EDT ,
[2022-03-08 22:25] VITALS: BP 208/109; PULSE 71; RESP 18; O2SAT 94
[2022-03-08] MEDS: cloNIDine HCl 0.1 MG Tablet PO (22:26)
[2022-03-08 23:13] VITALS: BP 178/93; PULSE 71; RESP 16; O2SAT 96
--- NOTE | 2022-03-08 23:35 | ED.RN ---
1900: PT IN TRIAGE AREA WAITING FOR A ROOM. CURRENTLY ED IS COMPLETELY FULL. PT WAS AWARE OF THIS BY PREVIOUS RN. PT APPROACHES TRIAGE DESK AT CHANGE OF SHIFT AND IS YELLING AND WANTING TO KNOW WHAT IS TAKING SO LONG BECAUSE HIS LIFE IS ON THE LINE D/T SOB. THIS RN TOLD PT UNDERSTAND YOUR FRUSTRATION BUT ED CONTINUES TO BE FULL AND ED DOCTORS ARE DOING THEIR BEST TO SEE AND TREAT PATIENTS QUICKLY POSSIBLE. CHECKED PT'S PULSE OX SINCE PT C/O SOB & NOTED TO BE 90-91% ON RA. EMOTIONAL SUPPORT GIVEN. PT CONTINUED TO TALK RUDELY TO THIS NURSE AND TRIAGE QUALITY CONSULTANT BUT DID AGREE TO WAIT IN THE DESIGNATED WAITING AREA.
--- NOTE | 2022-03-08 23:40 | ED.RN ---
ASSISTING PT OUT TO THE CAR. PT NOTED TO HAVE 02 ON ATTACHED TO ED WHEELCHAIR. PT INSISTED HE WAS TO GO HOME WITH THE O2 TANK. TOLD PT THAT WE DON'T NORMALLY DO THAT BUT WOULD CHECK WITH THE CHARGE NURSE TO SEE IF THIS WAS TRUE. CHARGE NURSE CAME OUT TO SPEAK TO PATIENT AND LET HIM KNOW THAT HE WAS NOT TO GO HOME WITH THE 02 TANK. PT BECAME VERY RUDE TO THE CHARGE NURSE AND TOLD HER SHE WAS LYING AND THAT THIS WAS BULL SHIT. PT WENT ON TO SAY THAT HE DIDN'T CARE WHAT SHE SAID HE WAS GOING HOME WITH THE TANK. CHARGE NURSE AND MYSELF EXPLAINED TO PATIENT THAT THIS IS AGAINST HOSPITAL POLICY. PT REPORTS HE HAS 02 AT HOME. PT REPORTS HE WILL BE CALLING MANAGEMENT IN THE MORNING TO COMPLAIN ABOUT HIS WAIT TIME & CARE RECEIVED WHILE IN THE ED. PT WAS NOTED TO BE VERY DIFFICULT AND RUDE TO STAFF WHILE HERE.
== END 2022-03-08 23:26 | disposition home or self-care (01) ==
PROVIDERS: Emergency Provider Emergency Medicine; PCP Internal Medicine; Visit Provider Emergency Medicine
DX: S22.32XA Fracture of one rib, left side, initial encounter for closed fracture (principal); F17.210 Nicotine dependence, cigarettes, uncomplicated; G47.30 Sleep apnea, unspecified; Z99.81 Dependence on supplemental oxygen; Z86.73 Personal history of transient ischemic attack (TIA), and cerebral infarction without residual deficits; Y04.8XXA Assault by other bodily force, initial encounter
CPT/HCPCS: 71101; 99285

== ENCOUNTER → 2022-05-13 | Outpatient (REF) | payer MEDICARE, MEDICAID, SELFPAY | LOC: OLS.SW 04:00 | PROVIDERS: PCP Internal Medicine; Referring Provider Family Medicine; Visit Provider Family Medicine | DX: Z51.81 Encounter for therapeutic drug level monitoring (principal) | CPT/HCPCS: 36415 ==

== ENCOUNTER → 2022-06-14 | Outpatient (REF) | payer MEDICARE, MEDICAID, SELFPAY ==
[2022-06-14 09:43] LABS: Hematocrit 45.9 % (40-54); Mean Corp Hgb Conc 32.7 g/dL (32-36); Mean Corpuscular Hgb 32.8 pg (27.0-32.0); Mean Corpuscular Volume 100.4 fL (80-94); Platelet Count 239 K/mm3 (150-450); RBC Distribution Width CV 14.2 % (11.6-14.6); RBC Distribution Width SD 51.8 fl (35.1-43.9); Red Blood Count 4.57 M/mm3 (4.6-6.2); White Blood Count 5.5 K/mm3 (4.4-11.0)
[2022-06-14 09:56] LABS: Vitamin D,25 Hydroxy 40.8 ng/mL
[2022-06-14 09:59] LABS: ALB/GLOB Ratio 1.1 RATIO (0.9-2.4); AST(SGOT) 13 U/L (15-37); Alanine Aminotransfer ALT/SGPT 31 U/L (16-61); Albumin, Serum 3.4 g/dL (3.2-5.0); Alkaline Phosphatase 68 U/L (45-117); Anion Gap 4 (5-15); BUN 20 mg/dL (7-18); BUN/Creat Ratio 22.5 RATIO (10-20); Calcium,Total 9.1 mg/dL (8.5-10.1); Chloride 104 mmol/L (98-107); Cholesterol 139 mg/dL (200); Creatinine, Serum 0.89 mg/dL (0.70-1.30); EST Glomerular Filtration Rate 89 mL/min (>60); Est Glom Filt Rate - Afr Amer 108 mL/min (>60); Glucose 76 mg/dL (74-106); High Density Lipoprotein 65 mg/dL; Potassium 3.9 mmol/L (3.5-5.1); Protein, Total 6.4 g/dL (6.4-8.2); Sodium Level 139 mmol/L (136-145); Triglycerides 111 mg/dL; Very Low Density Lipoprotein 22 mg/dL (5-40)
== END ==
LOC: OLS.SW 04:00
PROVIDERS: PCP Internal Medicine; Referring Provider Family Medicine; Visit Provider Family Medicine
DX: E78.5 Hyperlipidemia, unspecified (principal)
CPT/HCPCS: 36415; 80053; 80061; 82306; 85027

== ENCOUNTER → 2022-07-12 | Outpatient (REF) | payer MEDICARE, MEDICAID, SELFPAY | LOC: OLS.SW 05:00 | PROVIDERS: PCP Internal Medicine; Visit Provider Family Medicine | DX: Z79.899 Other long term (current) drug therapy (principal) | CPT/HCPCS: 36415 ==

== ENCOUNTER → 2022-08-11 | Outpatient (REF) | payer MEDICARE, MEDICAID, SELFPAY | LOC: OLS.SW 05:00 | PROVIDERS: PCP Internal Medicine; Visit Provider Family Medicine | DX: Z79.899 Other long term (current) drug therapy (principal) | CPT/HCPCS: 36415 ==

== ENCOUNTER 2022-10-21 18:28 | Emergency (ER) | payer MEDICARE, MEDICAID, SELFPAY ==
[2022-10-21 18:30] VITALS: BP 168/88; PULSE 99; RESP 16; TEMP 36.4; O2SAT 96
--- NOTE | 2022-10-21 19:28 | CT_ITS ---
STUDY: CT ABDOMEN AND PELVIS WITH CONTRAST REASON FOR EXAM: Male, 72 years old. Left sided abd pain RADIATION DOSAGE (If Supplied By Facility): CTDIvol = ( 13.15 ) mGy, DLP = ( 637.73 ) mGycm TECHNIQUE: IV 93 mL Isovue-370 was administered. Transaxial images were obtained from the dome of the diaphragm to the symphysis pubis. Multiplanar coronal and sagittal images were reformatted. Individualized Dose Optimization Techniques Were Used For This CT. COMPARISON: 10/08/2021, 03/02/2022 FINDINGS: The visualized lung bases are unremarkable. The visualized portions of the heart are within normal limits. Small right liver lesion near the sal hepatis redemonstrated. Folded/septated gallbladder fundus redemonstrated. Normal extrahepatic biliary system. Normal spleen. Normal pancreas. Unchanged 3.6 cm left adrenal mass and 1.8 cm right adrenal nodule. Normal visualized stomach. Normal small intestine. Normal colon. Prior appendectomy. Normal abdominal aorta. Left iliac stent graft remains occluded. No retroperitoneal adenopathy. Normal right kidney. Atrophic left kidney. Normal urinary bladder. There are prostatic calcifications. Normal abdominal wall. T11 superior endplate sclerosis is new compared to 03/02/2022. L2 and L3 superior endplate deformities redemonstrated. CT/Abdomen/Pelvis W IV Cont ONLY IMPRESSION: T11 superior endplate sclerosis is new compared to 03/02/2022, perhaps stress fracture. No other new abnormal finding the abdomen or pelvis. Electronically Signed: Андрей King MD at 21:10 EDT ,
--- NOTE | 2022-10-21 19:32 | ED.VIS.GI ---
HPI HPI - GI History of Present Illness Chief Complaint: Abd Pain Informant: patient Abdominal Pain/Flank Pain Onset: Weeks (Several) Context: Gradual Onset Timing: Continuous Quality: - (pain) Location: - (Left abdomen) Current Severity: Moderate Maximum Severity: Moderate Worsened by: Nothing Relieved by: Nothing (Including bowel movement which does not help his discomfort) Nausea/Vomiting/Emesis GI Symptom: Positive for Nausea; Negative for Vomiting Diarrhea/Melena/Hematochezia GI Symptom: Negative for Diarrhea, Melena or Hematochezia Narrative Narrative: Patient's been having left-sided abdominal discomfort for weeks as well as nausea no fevers or chills. Radiates into his back at times, nonspecific. No urinary symptoms. He states he has a history of a partial appendectomy. [facility] Medical History Asthma Atrial fibrillation Chronic pain COPD (chronic obstructive pulmonary disease) Depression Diabetes Falls frequently High cholesterol Hypertension Irregular heart beat Kidney stones On home oxygen therapy Pancreatitis Seizures Sleep apnea Smoker Stroke/cerebrovascular accident Home Medications tamsulosin 0.4 mg capsule 0.4 mg PO QHS bph 01/26/14 [History Last Taken 10/25/19 08:33] finasteride 5 mg tablet 5 mg PO DAILY prostate 11/14/14 [History Last Taken 10/25/19 08:35] atorvastatin 40 mg tablet 40 mg PO QHS Cholesterol 09/23/15 [History Last Taken 03/25/20] sertraline 50 mg tablet 100 mg PO DAILY mood stabilizer 12/02/15 [History Last Taken 10/25/19 08:35] mirtazapine 15 mg tablet 15 mg PO QHS anti depressant 08/16/19 [History Last Taken 10/25/19 20:18] clopidogrel 75 mg tablet 75 mg PO DAILY blood thinner 10/25/19 [History Last Taken 03/26/20] carbamazepine 200 mg tablet 200 mg PO Q12H Check with primary doctor 10/26/19 [History Last Taken 10/25/19 20:18] albuterol sulfate 2.5 mg/3 mL (0.083 %) solution for nebulization 2.5 mg (3 mL) inhalation Q4H PRN PRN sob/wheezing 08/12/20 [Rx Last Taken Unknown] losartan 100 mg tablet 100 mg PO DAILY Blood pressure 08/19/21 [History Last Taken Unknown] pantoprazole 40 mg tablet,delayed release 40 mg PO DAILY GERD 08/19/21 [History Last Taken Unknown] lidocaine 5 % topical patch 1 patch topical DAILY 10/08/21 [History Last Taken Unknown] nifedipine 90 mg tablet,extended release 90 mg PO DAILY 11/25/21 [History Last Taken Unknown] acetaminophen 325 mg tablet (Tylenol) 650 mg PO Q6H PRN PRN Pain 1-10 Or Fever #0 tabs 11/30/21 [Rx Last Taken Unknown] alendronate 70 mg tablet 70 mg PO QWEEK #1 TAB 11/30/21 [Rx Last Taken Unknown] ferrous sulfate 325 mg (65 mg iron) tablet (FeroSul) 325 mg PO BID #1 TAB 11/30/21 [Rx Last Taken Unknown] food supplemt, lactose-reduced (Ensure Clear oral liquid) 120 ml PO 4X/DAY #0 mL 11/30/21 [Rx Last Taken Unknown] ipratropium 0.5 mg-albuterol 3 mg (2.5 mg base)/3 mL nebulization soln 3 ml inhalation 4XD #3 mL 11/30/21 [Rx Last Taken Unknown] nicotine 21 mg/24 hr daily transdermal patch 21 mg transdermal DAILY #0 ea 11/30/21 [Rx Last Taken Unknown] metoprolol succinate 25 mg tablet,extended release 24 hr 25 mg PO DAILY #30 tabs 01/28/22 [Rx Last Taken Unknown] hydrocodone-acetaminophen 5-325mg 5mg-325mg 1 tab PO Q4H PRN pain 7 days #14 tabs 03/07/22 [Rx Last Taken Unknown] cephalexin 500 mg capsule 500 mg PO Q6 7 days #28 CAPSULES 10/21/22 [Rx Last Taken Unknown] Allergy/AdvReac Type Severity Reaction Status Date / Time No Known Allergies Allergy Verified 10/21/22 18:29 Family History Other Heart disease Surgical History History of appendectomy S/P arterial stent Social History household members: none Smoking Status: Current every day smoker tobacco type: cigarettes alcohol intake: former details: Former 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 ROS ED Constitutional Constitutional ED: Denies chills or fever(s) Eyes Eyes: Denies change in vision or diplopia ENT ENT ED: Denies rhinorrhea or sore throat Cardiovascular Cardiovascular: Denies chest pain or palpitations Respiratory/Chest Respiratory/Chest: Denies cough or dyspnea Gastrointestinal Gastrointestinal: Reports abdominal pain, constipation and nausea; Denies diarrhea or vomiting Genitourinary Genitourinary ED: Denies dysuria or hematuria Musculoskeletal Musculoskeletal: Reports back pain; Denies neck pain Integumentary Denies abscess or rash Neurologic Neurologic: Denies headache(s), paresthesias or weakness Psychiatric Psychiatric: Denies anxiety or suicidal thoughts EXAM Physical Exam Const Vital Signs: 10/21/22 18:30 Temperature 97.5 F L Temperature Source Temporal Pulse Rate 99 Respiratory Rate 16 Blood Pressure 168/88 H Blood Pressure Mean 114 Pulse Ox 96 Oxygen Delivery Method Room Air Positive well nourished, well developed and unkempt Constitutional Narrative: In no distress General Appearance ED: unkempt, well developed and NAD HEENT Reports moist mucous membranes normocephalic and atraumatic Eyes PERRL and EOMs intact bilaterally Neck full ROM and supple Resp normal respiratory effort and clear to auscultation bilaterally Cardio regular rate, regular rhythm and no murmurs GI non-distended GI Narrative: Tender left lower and mid abdomen as well as the right upper quadrant with voluntary guarding on both. No rebound tenderness detectable, but patient limits the exam by grabbing the examiner's hand. Auscultation: normoactive bowel sounds Palpation: soft Back/Spine Back/Spine Narrative: Mild left CVA tenderness subjective per patient. Normal inspection no rash. General Back: other FROM Extremity normal to inspection General Extremety ED: Negative for edema, pulses abnormal or tenderness General Extremity: Negative for edema or pulses abnormal Neuro oriented x3, CN's II-XII intact bilaterally and no sensory deficits noted Sensorium / Orientation: awake and alert Motor Exam: strength 5/5 throughout Psych Psych Narrative: labile. unnecessarily rude at times. Appearance: unkempt Skin no rashes or lesions noted and no wounds MDM MDM MDM Narrative Medical decision making narrative: Diverticulitis, ureteral stone and urinary tract pathology, other GI pathology in the differential diagnosis. This is not an exclusive list, but I think a CT is reasonable. This was done with IV contrast, I reviewed the images and the radiologist's interpretation and I agree with it. Essentially negative for anything intra-abdominal. His urine appears to show signs of infection, this was sent for culture and we will treat him empirically, I do not think we need to cover him for pyelo, he barely was tender if at all in the left back, and he has no urinary symptoms. The cephalexin I am putting him on will cover him for early pyelo if I put him on it for a week which is the plan. His symptoms were treated here with morphine and Zofran and IV fluids. Lab Data Attestation: I reviewed the patient's lab results. Labs: Laboratory Results - last 24 hr 10/21/22 10/21/22 10/21/22 19:40 19:40 19:50 WBC 10.4 RBC 4.51 L Hgb 14.4 Hct 43.1 MCV 95.6 H MCH 31.9 MCHC 33.4 RDW Std Deviation 45.7 H RDW Coeff of Aly 13.0 Plt Count 339 MPV 8.9 Immature Gran % (Auto) 1.200 H Neut % (Auto) 84.2 H Lymph % (Auto) 8.2 L [place] % (Auto) 5.4 Eos % (Auto) 0.4 Baso % (Auto) 0.6 Absolute Neuts (auto) 8.8 H Absolute Lymphs (auto) 0.85 Nucleated RBC % 0 Sodium 135 L Potassium 3.6 Chloride 99 Carbon Dioxide 28.0 Anion Gap 8 BUN 17 Creatinine 1.04 Est GFR (MDRD) Af Amer 90 Est GFR (MDRD) Non-Af 74 BUN/Creatinine Ratio 16.3 Glucose 104 Calcium 9.8 Total Bilirubin 0.30 AST 20 ALT 41 Alkaline Phosphatase 84 Total Protein 7.2 Albumin 3.0 L Globulin 4.2 Albumin/Globulin Ratio 0.7 L Lipase 42 Urine Color Yellow Urine Clarity Sl. Cloudy Urine pH 6.0 Ur Specific [place] 1.010 Urine Protein 100 H Urine Glucose (UA) Normal Urine Ketones Negative Urine Occult Blood 50 H Urine Nitrite Negative Urine Bilirubin Negative Urine Urobilinogen Normal Ur Leukocyte Esterase 500 H Urine RBC 0 SEEN Urine WBC 25-50 SEEN Ur Squamous Epith Cells 0-5 SEEN Urine Bacteria 2+ Urine Mucus 0 SEEN Radiography Diagnostic Testing: Clinical Impression(s) from Imaging Studies Abdomen/Pelvis CT 10/21/22 19:28 IMPRESSION: T11 superior endplate sclerosis is new compared to 03/02/2022, perhaps stress fracture. No other new abnormal finding the abdomen or pelvis. Electronically Signed: Андрей King MD at 21:10 EDT , Discharge Plan Triage Chief Complaint: Abd Pain Other Complaint: Nausea/Vomiting ED Provider: Jaden Jauregui Dx/Rx/DC Orders Clinical Impression: Left sided abdominal pain, Urinary tract infection Instructions: Abdominal Pain, Urinary Tract Infections in Men Prescriptions: New cephalexin [cephalexin] 500 mg capsule 500 mg PO Q6 7 Days Qty: 28 0RF No Action tamsulosin 0.4 MG capsule 0.4 mg PO QHS Label Comments: Prostate and urine finasteride 5 MG tablet 5 mg PO DAILY Label Comments: prostate atorvastatin 40 MG tablet 40 mg PO QHS Label Comments: CHOLESTEROL sertraline 50 MG tablet 100 mg PO DAILY Label Comments: depression mirtazapine 15 MG tablet 15 mg PO QHS clopidogrel 75 MG tablet 75 mg PO DAILY carbamazepine 200 MG tablet 200 mg PO Q12H Label Comments: face pain albuterol sulfate 2.5 MG/3 ML solution for nebulization 2.5 mg INHALATION Q4H PRN PRN (Reason: sob/wheezing) 0RF losartan 100 mg tablet 100 mg PO DAILY pantoprazole 40 mg tablet,delayed release (DR/EC) 40 mg PO DAILY lidocaine 5 % adhesive patch,medicated 1 patch topical DAILY Label Comments: PLACE 1 PATCH ON TO CLEAN INTACT SKIN FOR UP TO 12 HOURS IN A 24 HOUR PERIOD nifedipine 90 mg tablet extended release 90 mg PO DAILY acetaminophen [Tylenol] 325 mg Tablet 650 mg PO Q6H PRN PRN (Reason: Pain 1-10 Or Fever) Qty: 0 0RF Ensure Clear Liquid 120 ml PO 4X/DAY Qty: 0 0RF ferrous sulfate [FeroSul] 325 mg (65 mg iron) Tablet 325 mg PO BID Qty: 1 0RF ipratropium-albuterol 0.5 mg-3 mg(2.5 mg base)/3 mL Solution For Nebulization 3 ml inhalation 4XD Qty: 3 0RF nicotine 21 mg/24 hr Patch 24 Hour 21 mg transdermal DAILY Qty: 0 0RF alendronate 70 mg tablet 70 mg PO QWEEK Qty: 1 0RF metoprolol succinate 25 mg tablet extended release 24 hr 25 mg PO DAILY Qty: 30 0RF hydrocodone-acetaminophen 5-325 mg tablet 1 tab PO Q4H PRN (Reason: pain) 7 Days Qty: 14 0RF Primary Care Provider: Daija Douglas Referrals: Daija Douglas MD [Primary Care Provider] - 3-5 Days if not improving Disposition Disposition: Home, Self Care
[2022-10-21 19:47] LABS: Absolute Lymphocyte Count 0.85 X10^3/uL (0.83-4.51); Absolute Neutrophil Count 8.8 X10^3/uL (2.0-7.7); Basophil# 0.06 X10^3/uL; Basophil% 0.6 % (0-1); Eosinophil# 0.04 X10^3/uL; Eosinophils% 0.4 % (0-5); Hematocrit 43.1 % (40-54); Hemoglobin 14.4 g/dL (13.0-16.5); Lymphocyte # 0.85 X10^3/ul (0.83-4.51); Lymphocyte % 8.2 % (19-41); Mean Corp Hgb Conc 33.4 g/dL (32-36); Mean Corpuscular Hgb 31.9 pg (27.0-32.0); Mean Corpuscular Volume 95.6 fL (80-94); Mean Platelet Vol. 8.9 fl (6.2-12.0); Monocyte# 0.56 X10^3/uL; Monocyte% 5.4 % (0-10); NRBC Flagged by Analyzer 0 % (0-5); Neutrophil # 8.77 X10^3/uL (2.7-7.7); Neutrophil % 84.2 % (47-70); Platelet Count 339 K/mm3 (150-450); RBC Distribution Width SD 45.7 fl (35.1-43.9); Red Blood Count 4.51 M/mm3 (4.6-6.2); White Blood Count 10.4 K/mm3 (4.4-11.0)
[2022-10-21] MEDS: 0.9% Normal Saline 1,000 ML 1000 ML IV (19:49)
[2022-10-21] MEDS: Morphine 4 MG/ML Syringe IV (19:49)
[2022-10-21] MEDS: Ondansetron 4 MG/2 ML Vial IV (19:49)
[2022-10-21 19:56] LABS: Mucous, Urine 0 SEEN /hpf (<or=2+); Red Blood Cells-Urine 0 SEEN /hpf (0-5)
[2022-10-21 19:57] LABS: Color, Urine Yellow (Yellow); Glucose, Dipstick Normal (Normal); Ketone-Dipstick Negative (Negative); Leukocyte Esterase-Dipstick 500 /ul (Negative); Nitrite-Dipstick Negative (Negative); Occult Blood-Urine 50 /ul (Negative); Protein-Dipstick 100 mg/dl (Negative); Urine Bilirubin Dipstick Negative (Negative); Urine Clarity Sl. Cloudy (Clear); Urine Urobilinogen Normal (Normal)
[2022-10-21 20:04] LABS: ALB/GLOB Ratio 0.7 RATIO (0.9-2.4); AST(SGOT) 20 U/L (15-37); Alanine Aminotransfer ALT/SGPT 41 U/L (16-61); Alkaline Phosphatase 84 U/L (45-117); Anion Gap 8 (5-15); BUN 17 mg/dL (7-18); BUN/Creat Ratio 16.3 RATIO (10-20); Calcium,Total 9.8 mg/dL (8.5-10.1); Chloride 99 mmol/L (98-107); Creatinine, Serum 1.04 mg/dL (0.70-1.30); EST Glomerular Filtration Rate 74 mL/min (>60); Est Glom Filt Rate - Afr Amer 90 mL/min (>60); Globulin 4.2 g/dL (2.2-4.2); Glucose 104 mg/dL (74-106); Lipase 42 U/L (13-75); Potassium 3.6 mmol/L (3.5-5.1); Protein, Total 7.2 g/dL (6.4-8.2); Sodium Level 135 mmol/L (136-145)
[2022-10-21 20:16] LABS: Bacteria 2+ /hpf (None Seen); Squamous Epithelial Cells - UA 0-5 SEEN /hpf (0-5); White Blood Cells 25-50 SEEN /hpf (0-5)
[2022-10-21] MEDS: Cephalexin 250 MG Capsule 500 MG PO (21:27)
--- NOTE | 2022-10-21 21:31 | ED.RN ---
attempted to call ex , Giovana for ride home. no answer
== END 2022-10-21 22:04 | disposition home or self-care (01) ==
PROVIDERS: Emergency Provider Emergency Medicine; PCP Internal Medicine; Visit Provider Emergency Medicine
DX: R10.9 Unspecified abdominal pain (principal); N39.0 Urinary tract infection, site not specified; F17.210 Nicotine dependence, cigarettes, uncomplicated; G47.30 Sleep apnea, unspecified; Z99.81 Dependence on supplemental oxygen
CPT/HCPCS: 74177; 80053; 81001; 83690; 85025; 87086; 87088; 87186; 96361; 96374; 96375; 99285; J7030; Q9967; A4216; J2405

== ENCOUNTER 2022-12-31 15:14 | Emergency (ER) | payer MEDICARE, SELFPAY ==
[2022-12-31 15:16] VITALS: BP 118/66; PULSE 75; RESP 15; TEMP 35.9; O2SAT 93; BMI 21.7
--- NOTE | 2022-12-31 15:42 | EDS_ITS ---
HPI <YARIEL Vidal - Last Filed: 12/31/22 16:26> History of Present Illness Chief Complaint: Weakness Narrative Narrative: 72-year-old male states he has chronic mobility issues and falls every day. He fell today and landed on his butt. He denies injuries. He states his ex- was visiting and called EMS so they brought him in for evaluation. He has been using a cane. States he is supposed to have a walker but it broke. He has no other acute complaints. [facility] <YARIEL Vidal - Last Filed: 12/31/22 16:26> [facility] Medical History Asthma Atrial fibrillation Chronic pain COPD (chronic obstructive pulmonary disease) Depression Diabetes Falls frequently High cholesterol Hypertension Irregular heart beat Kidney stones On home oxygen therapy Pancreatitis Seizures Sleep apnea Smoker Stroke/cerebrovascular accident Home Medications tamsulosin 0.4 mg capsule 0.4 mg PO QHS bph 01/26/14 [History Last Taken 10/25/19 08:33] finasteride 5 mg tablet 5 mg PO DAILY prostate 11/14/14 [History Last Taken 10/25/19 08:35] atorvastatin 40 mg tablet 40 mg PO QHS Cholesterol 09/23/15 [History Last Taken 03/25/20] sertraline 50 mg tablet 100 mg PO DAILY mood stabilizer 12/02/15 [History Last Taken 10/25/19 08:35] mirtazapine 15 mg tablet 15 mg PO QHS anti depressant 08/16/19 [History Last Taken 10/25/19 20:18] clopidogrel 75 mg tablet 75 mg PO DAILY blood thinner 10/25/19 [History Last Taken 03/26/20] carbamazepine 200 mg tablet 200 mg PO Q12H Check with primary doctor 10/26/19 [History Last Taken 10/25/19 20:18] albuterol sulfate 2.5 mg/3 mL (0.083 %) solution for nebulization 2.5 mg (3 mL) inhalation Q4H PRN PRN sob/wheezing 08/12/20 [Rx Last Taken Unknown] losartan 100 mg tablet 100 mg PO DAILY Blood pressure 08/19/21 [History Last Taken Unknown] pantoprazole 40 mg tablet,delayed release 40 mg PO DAILY GERD 08/19/21 [History Last Taken Unknown] lidocaine 5 % topical patch 1 patch topical DAILY 10/08/21 [History Last Taken Unknown] nifedipine 90 mg tablet,extended release 90 mg PO DAILY 11/25/21 [History Last Taken Unknown] acetaminophen 325 mg tablet (Tylenol) 650 mg (2 x 325 mg) PO Q6H PRN PRN Pain 1- 10 Or Fever #0 tabs 11/30/21 [Rx Last Taken Unknown] alendronate 70 mg tablet 70 mg PO QWEEK #1 TAB 11/30/21 [Rx Last Taken Unknown] ferrous sulfate 325 mg (65 mg iron) tablet (FeroSul) 325 mg PO BID #1 TAB 11/30/21 [Rx Last Taken Unknown] food supplemt, lactose-reduced (Ensure Clear oral liquid) 120 ml PO 4X/DAY #0 mL 11/30/21 [Rx Last Taken Unknown] ipratropium 0.5 mg-albuterol 3 mg (2.5 mg base)/3 mL nebulization soln 3 ml inhalation 4XD #3 mL 11/30/21 [Rx Last Taken Unknown] nicotine 21 mg/24 hr daily transdermal patch 21 mg transdermal DAILY #0 ea 11/30/21 [Rx Last Taken Unknown] metoprolol succinate 25 mg tablet,extended release 24 hr 25 mg PO DAILY #30 tabs 01/28/22 [Rx Last Taken Unknown] hydrocodone-acetaminophen 5-325mg 5mg-325mg 1 tab PO Q4H PRN pain 7 days #14 tabs 03/07/22 [Rx Last Taken Unknown] cephalexin 500 mg capsule 500 mg PO Q6 7 days #28 CAPSULES 10/21/22 [Rx Last Taken Unknown] Allergy/AdvReac Type Severity Reaction Status Date / Time No Known Allergies Allergy Verified 12/31/22 15:15 Family History Other Heart disease Surgical History History of appendectomy S/P arterial stent Social History household members: none Smoking Status: Current every day smoker tobacco type: cigarettes alcohol intake: former details: Former 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 <YARIEL Vidal - Last Filed: 12/31/22 16:26> ROS ED ROS Narrative Constitutional: Negative for fever, chills, malaise. CVS: Negative for palpitations, chest pain, syncope. Respiratory: Negative for shortness of breath, cough. GI: Negative for abdominal pain, nausea, vomiting,. Neuro: Negative for headache, motor/sensory dysfunction. Skin: Negative for wound. Musc: Negative for joint pain, swelling, trauma. EXAM <YARIEL Vidal - Last Filed: 12/31/22 16:26> Physical Exam Narrative Exam Narrative: CONST: Patient sitting in no acute distress. EYES: Right pupil deformity is chronic. Left pupil equal round reactive. EOMI. ENT: Normal inspection, moist mucous membranes. NECK: Normal inspection. No midline spinal tenderness, no step off or crepitus. RESP: No respiratory distress, CTAB. No chest wall tenderness. CVS: Regular rate and rhythm, no murmur, no gallop. ABD: Soft and nontender, no guarding or rebound, nondistended.. Back: Normal inspection, no midline spinal tenderness or step-offs. SKIN: Color normal, no rash, warm, dry, intact. EXTREMITIES: Normal appearance, full ROM, no pedal edema. Distal pulses intact. NEURO: Oriented x4. PSYCH: Normal affect. Const Vital Signs: 12/31/22 15:16 12/31/22 15:20 Temperature 96.6 F L Temperature Source Temporal Pulse Rate 75 Respiratory Rate 15 Respiratory Effort Normal Non-Labored Respiratory Pattern Normal Blood Pressure 118/66 Blood Pressure Mean 83 Pulse Ox 93 Oxygen Delivery Method Room Air <Dr. Huber Alvarado MD - Last Filed: 12/31/22 22:22> Physical Exam Const Vital Signs: 12/31/22 15:16 12/31/22 15:20 Temperature 96.6 F L Temperature Source Temporal Pulse Rate 75 Respiratory Rate 15 Respiratory Effort Normal Non-Labored Respiratory Pattern Normal Blood Pressure 118/66 Blood Pressure Mean 83 Pulse Ox 93 Oxygen Delivery Method Room Air MDM <YARIEL Vidal - Last Filed: 12/31/22 16:26> MDM MDM Narrative Medical decision making narrative: Patient states he is for mobility and falls daily. Today he fell onto his butt and had no injuries but his ex- called the squad. He has no complaints. On exam there are no signs of injury. I provided a walker since his broke. He does not want admitted and wants to go home. He is able to ambulate here and was discharged in stable condition. <Dr. Huber Alvarado MD - Last Filed: 12/31/22 22:22> [facility] Treatment and Re-Evaluation :: I have personally performed a face to face assessment of the patient and have reviewed the LUIS Note. I performed a substantive portion of the visit including all aspects of the following. My echevarria findings include: History: Patient presents after fall at home. He states he has chronic instability related to leg repairs and other unknown issues. This has been going on for years. He used to have a walker but it broke. He was using his sisters for a while but she needed it and took it back. He has been trying to get by with a cane but it is difficult. Today he fell when his sister was there and she called EMS. He states this is nothing out of the ordinary. He feels perfectly fine. He did not hurt himself. Although he is pleasant here he states he has no interest in any x-rays or blood work. This is a chronic recurrent problem and he feels perfectly fine. We have checked with him a couple times and he is very consistent on this. Exam: Patient is awake alert. I am not seeing any signs of acute trauma on the head torso or extremities. His lungs are clear. His saturations are normal. His heart is regular. His abdomen is benign. Extremities show no sign of deformity or contusions. He has a history of vascular disease but there is no sign of acute ischemia. Medical Decision Making: Patient is awake alert appropriate. He is capable of making his own decisions. He states he did not want to come in here and does not want an evaluation. We will get him back home per his wishes. Discharge Plan Triage Chief Complaint: Weakness ED Midlevel Provider: Alie Bess ED Provider: Huber Alvarado Dx/Rx/DC Orders Clinical Impression: Accident due to mechanical fall without injury Instructions: Exercises to Prevent Falls Prescriptions: No Action tamsulosin 0.4 MG capsule 0.4 mg PO QHS Patient Comments: Prostate and urine finasteride 5 MG tablet 5 mg PO DAILY Patient Comments: prostate atorvastatin 40 MG tablet 40 mg PO QHS Patient Comments: CHOLESTEROL sertraline 50 MG tablet 100 mg PO DAILY Patient Comments: depression mirtazapine 15 MG tablet 15 mg PO QHS clopidogrel 75 MG tablet 75 mg PO DAILY carbamazepine 200 MG tablet 200 mg PO Q12H Patient Comments: face pain albuterol sulfate 2.5 MG/3 ML solution for nebulization 2.5 mg INHALATION Q4H PRN PRN (Reason: sob/wheezing) 0RF losartan 100 mg tablet 100 mg PO DAILY pantoprazole 40 mg tablet,delayed release (DR/EC) 40 mg PO DAILY lidocaine 5 % adhesive patch,medicated 1 patch topical DAILY Patient Comments: PLACE 1 PATCH ON TO CLEAN INTACT SKIN FOR UP TO 12 HOURS IN A 24 HOUR PERIOD nifedipine 90 mg tablet extended release 90 mg PO DAILY acetaminophen [Tylenol] 325 mg Tablet 650 mg PO Q6H PRN PRN (Reason: Pain 1-10 Or Fever) Qty: 0 0RF Ensure Clear Liquid 120 ml PO 4X/DAY Qty: 0 0RF ferrous sulfate [FeroSul] 325 mg (65 mg iron) Tablet 325 mg PO BID Qty: 1 0RF ipratropium-albuterol 0.5 mg-3 mg(2.5 mg base)/3 mL Solution For Nebulization 3 ml inhalation 4XD Qty: 3 0RF nicotine 21 mg/24 hr Patch 24 Hour 21 mg transdermal DAILY Qty: 0 0RF alendronate 70 mg tablet 70 mg PO QWEEK Qty: 1 0RF metoprolol succinate 25 mg tablet extended release 24 hr 25 mg PO DAILY Qty: 30 0RF hydrocodone-acetaminophen 5-325 mg tablet 1 tab PO Q4H PRN (Reason: pain) 7 Days Qty: 14 0RF cephalexin [cephalexin] 500 mg capsule 500 mg PO Q6 7 Days Qty: 28 0RF Primary Care Provider: Daija Douglas Referrals: Daija Douglas MD [Primary Care Provider] - Activity Restrictions/Additional Instructions: Please use the walker and follow-up with your primary care doctor. Disposition Disposition: Home, Self Care Discharge Date/Time: 12/31/22 16:29
== END 2022-12-31 16:29 | disposition home or self-care (01) ==
PROVIDERS: Emergency Provider Emergency Medicine; PCP Internal Medicine; Visit Provider Emergency Medicine
DX: R53.1 Weakness (principal); F17.210 Nicotine dependence, cigarettes, uncomplicated; G47.30 Sleep apnea, unspecified; Z99.81 Dependence on supplemental oxygen; Z86.73 Personal history of transient ischemic attack (TIA), and cerebral infarction without residual deficits; W19.XXXA Unspecified fall, initial encounter
CPT/HCPCS: 99284

== ENCOUNTER 2023-02-17 21:31 | Emergency (ER) | payer MEDICARE, SELFPAY ==
[2023-02-17 21:32] VITALS: BP 203/152; PULSE 72; RESP 18; TEMP 35.8; O2SAT 98
[2023-02-17 21:35] VITALS: BMI 21.5
--- NOTE | 2023-02-17 21:39 | ED.RN ---
CALL JOEY BURRELL WITH INFO [phone]
[2023-02-17 23:04] VITALS: BP 212/141; PULSE 88; RESP 16; O2SAT 98
--- NOTE | 2023-02-17 23:46 | CT_ITS ---
EXAM: CT CERVICAL SPINE WITHOUT INTRAVENOUS CONTRAST CLINICAL INDICATION: fall/trauma/pain TECHNIQUE: Helically acquired images were obtained of the cervical spine without intravenous contrast. 2D reformatted images were reviewed. This CT exam was performed using one or more of the following dose reduction techniques: automated exposure control, adjustment of the mA and/or kV according to patient size, and/or use of iterative reconstruction technique. RADIATION DOSE: CTDIvol = 12.65 mGy, DLP = 278.81 mGy-cm COMPARISON: No relevant prior studies available. FINDINGS: VERTEBRAE: Mildly accentuated lordotic curvature of the cervical spine, no subluxation. DISCS/SPINAL CANAL/NEURAL FORAMINA: Marked posterior disc space narrowing at C5-6 and C6-7 mild spondylosis and endplate sclerosis at these levels. Moderate right C5-6 and bilateral C6-7 neural foraminal stenosis. Suspicion of mild multilevel spinal stenosis, AP diameter of the canal is roughly 8 mm at C5-C6 due to combined bulging or protruding disc and mild ligamentum flavum hypertrophy. SOFT TISSUES: Unremarkable. No prevertebral soft tissue swelling. VASCULATURE: Moderate cervical carotid calcifications, greater on the right. LYMPH NODES: Unremarkable. No cervical adenopathy. LUNG APICES: Advanced emphysematous change in the lung apices. OTHER FINDINGS: Bones appear mildly to moderately demineralized. CT/Spine Cervical without Contras IMPRESSION: No acute posttraumatic abnormality. Demineralization, degenerative changes, chronic lung changes, and cervical carotid calcifications. Electronically Signed: Melania Herrera MD at 1:00 EDT ,
--- NOTE | 2023-02-17 23:46 | CT_ITS ---
EXAM: CT HEAD WITHOUT INTRAVENOUS CONTRAST CLINICAL INDICATION: fall/trauma TECHNIQUE: Multiple axial images were obtained of the head without intravenous contrast. This CT exam was performed using one or more of the following dose reduction techniques: automated exposure control, adjustment of the mA and/or kV according to patient size, and/or use of iterative reconstruction technique. RADIATION DOSE: CTDIvol = 44.99 mGy, DLP = 829.85 mGy-cm. COMPARISON: October 26, 2017. FINDINGS: BRAIN AND EXTRA-AXIAL SPACES: Moderate cerebral volume loss and chronic white matter changes. Moderate intracranial carotid calcifications. Mild punctate calcification at vertebral basilar junction. Prominent CSF density in the left middle cranial fossa, likely incidental arachnoid cyst, similar to prior exam. No evidence of acute infarct. No intracranial mass or mass effect. There is preservation of the finley/white matter interface. Posterior fossa structures are unremarkable. Basal cisterns are patent. No intracranial hemorrhage. BONES/JOINTS: See above. SINUSES: Completely included. Well aerated. Intact nasal bones and zygomatic arches. MASTOID AIR CELLS: Unremarkable. Clear. ORBITS: Visualized globes, extraocular muscles, optic nerves and retrobulbar fat appear unremarkable. CT/Brain/Head without Contrast IMPRESSION: Moderate chronic changes. No acute abnormality. Electronically Signed: Melania Herrera MD at 0:48 EDT ,
[2023-02-18 00:38] LABS: International Normalized Ratio 0.9; Prothrombin Time (Protime)PT. 12.4 SECONDS (11.7-14.9)
[2023-02-18 01:00] VITALS: BP 190/110; PULSE 88; RESP 16; O2SAT 98
--- NOTE | 2023-02-18 01:42 | ED.VIS.FALL ---
HPI HPI - Fall History of Present Illness Chief Complaint: Fall Informant: patient Narrative Narrative: Patient states he fell into a bunch of garbage cans tonight. He is on Coumadin. He states he hit his head and his left leg able to walk afterwards, thinks he may have lost consciousness but he is not sure and it was unwitnessed by his family he was here with him. Complains of some neck discomfort as well that is nonlateralizing and just feels sore. Denies any other injury or pain or prodromal symptoms. He states this was an accident. [facility] Medical History Asthma Atrial fibrillation Chronic pain COPD (chronic obstructive pulmonary disease) Depression Diabetes Falls frequently High cholesterol Hypertension Irregular heart beat Kidney stones On home oxygen therapy Pancreatitis Seizures Sleep apnea Smoker Stroke/cerebrovascular accident Home Medications tamsulosin 0.4 mg capsule 0.4 mg PO QHS bph 01/26/14 [History Last Taken 10/25/19 08:33] finasteride 5 mg tablet 5 mg PO DAILY prostate 11/14/14 [History Last Taken 10/25/19 08:35] atorvastatin 40 mg tablet 40 mg PO QHS Cholesterol 09/23/15 [History Last Taken 03/25/20] sertraline 50 mg tablet 100 mg PO DAILY mood stabilizer 12/02/15 [History Last Taken 10/25/19 08:35] mirtazapine 15 mg tablet 15 mg PO QHS anti depressant 08/16/19 [History Last Taken 10/25/19 20:18] clopidogrel 75 mg tablet 75 mg PO DAILY blood thinner 10/25/19 [History Last Taken 03/26/20] carbamazepine 200 mg tablet 200 mg PO Q12H Check with primary doctor 10/26/19 [History Last Taken 10/25/19 20:18] albuterol sulfate 2.5 mg/3 mL (0.083 %) solution for nebulization 2.5 mg (3 mL) inhalation Q4H PRN PRN sob/wheezing 08/12/20 [Rx Last Taken Unknown] losartan 100 mg tablet 100 mg PO DAILY Blood pressure 08/19/21 [History Last Taken Unknown] pantoprazole 40 mg tablet,delayed release 40 mg PO DAILY GERD 08/19/21 [History Last Taken Unknown] lidocaine 5 % topical patch 1 patch topical DAILY 10/08/21 [History Last Taken Unknown] nifedipine 90 mg tablet,extended release 90 mg PO DAILY 11/25/21 [History Last Taken Unknown] acetaminophen 325 mg tablet (Tylenol) 650 mg (2 x 325 mg) PO Q6H PRN PRN Pain 1-10 Or Fever #0 tabs 11/30/21 [Rx Last Taken Unknown] alendronate 70 mg tablet 70 mg PO QWEEK #1 TAB 11/30/21 [Rx Last Taken Unknown] ferrous sulfate 325 mg (65 mg iron) tablet (FeroSul) 325 mg PO BID #1 TAB 11/30/21 [Rx Last Taken Unknown] food supplemt, lactose-reduced (Ensure Clear oral liquid) 120 ml PO 4X/DAY #0 mL 11/30/21 [Rx Last Taken Unknown] ipratropium 0.5 mg-albuterol 3 mg (2.5 mg base)/3 mL nebulization soln 3 ml inhalation 4XD #3 mL 11/30/21 [Rx Last Taken Unknown] nicotine 21 mg/24 hr daily transdermal patch 21 mg transdermal DAILY #0 ea 11/30/21 [Rx Last Taken Unknown] metoprolol succinate 25 mg tablet,extended release 24 hr 25 mg PO DAILY #30 tabs 01/28/22 [Rx Last Taken Unknown] Allergy/AdvReac Type Severity Reaction Status Date / Time No Known Allergies Allergy Verified 02/17/23 21:32 Family History Other Heart disease Surgical History History of appendectomy S/P arterial stent Social History household members: none Smoking Status: Current every day smoker tobacco type: cigarettes alcohol intake: former details: Former 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 ROS ED Constitutional Constitutional ED: Denies chills or fever(s) Eyes Eyes: Denies change in vision or diplopia ENT ENT ED: Denies ear pain, epistaxis, facial pain or rhinorrhea Cardiovascular Cardiovascular: Denies chest pain or palpitations Respiratory/Chest Respiratory/Chest: Denies cough or dyspnea Gastrointestinal Gastrointestinal: Denies abdominal pain, diarrhea, melena, nausea or vomiting Genitourinary Genitourinary ED: Denies dysuria or hematuria Musculoskeletal Musculoskeletal: Reports extremity pain and neck pain; Denies back pain Integumentary Reports Abrasions; Denies abscess, laceration or rash Neurologic Neurologic: Reports headache(s); Denies confusion, paresthesias or weakness EXAM Physical Exam Const Vital Signs: 02/17/23 21:32 02/17/23 23:04 02/17/23 23:09 Temperature 96.4 F L Temperature Source Temporal Pulse Rate 72 88 Respiratory Rate 18 16 Respiratory Effort Normal Respiratory Depth Normal Respiratory Pattern Normal Blood Pressure 203/152 H 212/141 H Blood Pressure Mean 169 164 Pulse Ox 98 98 Oxygen Delivery Method Room Air Room Air Positive well nourished and well developed General Appearance ED: well developed and NAD HEENT Reports TM's clear and nasal mucous membranes and turbinates normal HEENT Narrative: Erythematous forehead without hematoma, crepitance, depression. No other signs of head trauma. atraumatic Face and Sinus: Negative for facial tenderness Tympanic Membrane ED: Yes TM's clear Eyes PERRL and EOMs intact bilaterally Visual Acuity: other Other Details: no entrapment or pain with extraocular movements Neck full ROM and supple Neck Narrative: Diffusely tender, bilateral paraspinal and midline throughout nonfocal General: tenderness Chest Wall inspection of chest normal and palpation of chest normal Chest: symmetrical chest wall rise; Negative for crepitus or tenderness Resp normal respiratory effort and clear to auscultation bilaterally Percussion: other equal BS bilat Cardio Rate: regular rate Rhythm: regular rhythm GI normal to inspection, nondistended, normoactive bowel sounds, soft to palpation and non-tender Back/Spine normal ROM Cervical Spine: Negative for cervical spine tenderness Thoracic Spine / Upper Back: Negative for thoracic spinal tenderness Lumbar Spine / Lower Back: Negative for lumbar spinal tenderness Extremity normal to inspection and full ROM Extremity Narrative: Abrasions to the left gonzalez and the lateral knee but no bony tenderness or limited range of motion, no effusion at the knee. Full range of motion all 4 extremities. General Extremety ED: Negative for tenderness Neuro oriented x3, CN's II-XII intact bilaterally, moves all extremities, no focal motor deficits and no sensory deficits noted [place] Coma Scale: document GCS findings Spontaneous Obeys Commands Oriented 15 Sensorium / Orientation: awake and alert Psych mental status grossly normal and thought process normal Skin no wounds Lesions: no lesions Rashes: no rashes MDM MDM MDM Narrative Medical decision making narrative: INR 0.9, brain CT and cervical spine CT were obtained, I reviewed the images and the reports and I agree with them, negative for acute traumatic abnormality. Discharged in stable condition will be offered Tylenol prior to discharge. Lab Data Attestation: I reviewed the patient's lab results. Labs: Laboratory Results - last 24 hr 02/18/23 00:25 PT 12.4 INR 0.9 Radiography Diagnostic Testing: Clinical Impression(s) from Imaging Studies Brain CT 02/17/23 23:46 IMPRESSION: Moderate chronic changes. No acute abnormality. Electronically Signed: Melania Herrera MD at 0:48 EDT , Cervical Spine CT 02/17/23 23:46 IMPRESSION: No acute posttraumatic abnormality. Demineralization, degenerative changes, chronic lung changes, and cervical carotid calcifications. Electronically Signed: Melania Herrera MD at 1:00 EDT , Discharge Plan Triage Chief Complaint: Fall Other Complaint: Back Other, Pain/Inj ED Provider: Jaden Jauregui Dx/Rx/DC Orders Clinical Impression: Acute cervical myofascial strain, Closed head injury, Accidental fall, Abrasion of left leg Instructions: ED Neck Sprain or Strain Prescriptions: No Action tamsulosin 0.4 MG capsule 0.4 mg PO QHS Patient Comments: Prostate and urine finasteride 5 MG tablet 5 mg PO DAILY Patient Comments: prostate atorvastatin 40 MG tablet 40 mg PO QHS Patient Comments: CHOLESTEROL sertraline 50 MG tablet 100 mg PO DAILY Patient Comments: depression mirtazapine 15 MG tablet 15 mg PO QHS clopidogrel 75 MG tablet 75 mg PO DAILY carbamazepine 200 MG tablet 200 mg PO Q12H Patient Comments: face pain albuterol sulfate 2.5 MG/3 ML solution for nebulization 2.5 mg INHALATION Q4H PRN PRN (Reason: sob/wheezing) 0RF losartan 100 mg tablet 100 mg PO DAILY pantoprazole 40 mg tablet,delayed release (DR/EC) 40 mg PO DAILY lidocaine 5 % adhesive patch,medicated 1 patch topical DAILY Patient Comments: PLACE 1 PATCH ON TO CLEAN INTACT SKIN FOR UP TO 12 HOURS IN A 24 HOUR PERIOD nifedipine 90 mg tablet extended release 90 mg PO DAILY acetaminophen [Tylenol] 325 mg Tablet 650 mg PO Q6H PRN PRN (Reason: Pain 1-10 Or Fever) Qty: 0 0RF Ensure Clear Liquid 120 ml PO 4X/DAY Qty: 0 0RF ferrous sulfate [FeroSul] 325 mg (65 mg iron) Tablet 325 mg PO BID Qty: 1 0RF ipratropium-albuterol 0.5 mg-3 mg(2.5 mg base)/3 mL Solution For Nebulization 3 ml inhalation 4XD Qty: 3 0RF nicotine 21 mg/24 hr Patch 24 Hour 21 mg transdermal DAILY Qty: 0 0RF alendronate 70 mg tablet 70 mg PO QWEEK Qty: 1 0RF metoprolol succinate 25 mg tablet extended release 24 hr 25 mg PO DAILY Qty: 30 0RF Primary Care Provider: Daija Douglas Referrals: Daija Douglas MD [Primary Care Provider] - As Needed Disposition Disposition: Home, Self Care
[2023-02-18 01:56] VITALS: BP 157/113; PULSE 88; RESP 16
== END 2023-02-18 01:58 | disposition home or self-care (01) ==
PROVIDERS: Emergency Provider Emergency Medicine; PCP Internal Medicine; Visit Provider Emergency Medicine
DX: S16.1XXA Strain of muscle, fascia and tendon at neck level, initial encounter (principal); S09.90XA Unspecified injury of head, initial encounter; S80.812A Abrasion, left lower leg, initial encounter; F17.210 Nicotine dependence, cigarettes, uncomplicated; Z79.01 Long term (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 of anticoagulants; Z99.81 Dependence on supplemental oxygen; Z86.73 Personal history of transient ischemic attack (TIA), and cerebral infarction without residual deficits; W19.XXXA Unspecified fall, initial encounter
CPT/HCPCS: 70450; 72125; 85610; 99285

== ENCOUNTER 2023-02-25 17:21 | Emergency (ER) | payer MEDICARE, SELFPAY ==
[2023-02-25 17:22] VITALS: BP 187/76; PULSE 84; RESP 16; TEMP 36.1; O2SAT 100
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
--- NOTE | 2023-02-25 19:35 | RAD_ITS ---
STUDY: X-RAY - LEFT FOOT CLINICAL: Male, 72 years old. injury, pain TECHNIQUE: 3 view(s) of the foot. COMPARISON: None. FINDINGS: Normal talus, calcaneus, and tarsal bones. Normal visualized subtalar, talonavicular, calcaneocuboid, tarsal and tarsometatarsal articulations. Normal metatarsi. There is degenerative arthrosis of the metatarsophalangeal joint of the hallux . Normal tibial and fibular sesamoid bones. Normal interphalangeal joint of the great toe. Nondisplaced fracture of the first distal phalanx best seen on image 1. Normal second through fifth metatarsophalangeal joints. Normal interphalangeal joints and phalanges of the lesser toes. First and second digit soft tissue swelling. RAD/Foot min 3 Views IMPRESSION: First distal phalanx nondisplaced fracture. Electronically Signed: Dylan Zaragoza MD (Brooks) at 19:09 EDT ,
[2023-02-25 19:37] VITALS: BMI 22.4
[2023-02-25 19:41] VITALS: BP 193/87; PULSE 67; RESP 15; O2SAT 97
== END 2023-02-25 19:42 | disposition home or self-care (01) ==
PROVIDERS: Emergency Provider Emergency Medicine; PCP Internal Medicine; Visit Provider Emergency Medicine
DX: S92.412A Displaced fracture of proximal phalanx of left great toe, initial encounter for closed fracture (principal); F17.210 Nicotine dependence, cigarettes, uncomplicated; G47.30 Sleep apnea, unspecified; W19.XXXA Unspecified fall, initial encounter; Z86.73 Personal history of transient ischemic attack (TIA), and cerebral infarction without residual deficits; Z99.81 Dependence on supplemental oxygen
CPT/HCPCS: 73630; 99285

== ENCOUNTER 2023-03-29 18:16 | Emergency (ER) | payer MEDICARE, SELFPAY ==
[2023-03-29 18:17] VITALS: BP 243/88; PULSE 103; RESP 16; TEMP 36.4; O2SAT 97
[2023-03-29 19:20] VITALS: BP 195/80; PULSE 84; RESP 18; O2SAT 92
[2023-03-29 19:22] VITALS: BMI 21.9
--- NOTE | 2023-03-29 19:27 | CT_ITS ---
STUDY: CT BRAIN WITHOUT CONTRAST REASON FOR EXAM: Male, 72 years old. head traum RADIATION DOSAGE (If Supplied By Facility): CTDIvol = ( 44.99 ) mGy, DLP = ( 829.85 ) mGycm TECHNIQUE: Transaxial CT imaging of the brain was performed without administration of intravenous contrast material. Individualized dose optimization techniques were used for this CT. COMPARISON: 02/18/2023. FINDINGS: Normal soft tissue structures. Normal calvarium. There is mild cerebral atrophy with widening of the extra-axial spaces and ventricular dilatation. There are areas of decreased attenuation within the white matter tracts of the supratentorial brain, consistent with microvascular disease changes. Normal basal ganglia and thalami. Normal brainstem. Normal cerebellum. There is no intracranial hemorrhage. There are no findings of an acute ischemic infarction. Normal visualized paranasal sinuses. CT/Brain/Head without Contrast IMPRESSION: Chronic changes as described, stable study in the interval. Specifically, no acute intracranial hemorrhage or space-occupying lesion. No skull fracture. Electronically Signed: Irish Velásquez MD at 19:56 EDT ,
--- NOTE | 2023-03-29 19:41 | RAD_ITS ---
STUDY: X-RAY - LEFT SHOULDER REASON FOR EXAM: Male, 72 years old. trauma TECHNIQUE: 2 view(s) of the shoulder. COMPARISON: None. FINDINGS: Normal glenohumeral articulation. There is degenerative arthrosis of the acromioclavicular joint without inferior osseous spur formation. Normal acromion. Normal humeral head and visualized proximal humerus. The soft tissue structures are unremarkable. There is no demonstrated fracture. Normal visualized pulmonary apex. RAD/Shoulder min 2 Views IMPRESSION: Mild degenerative disease with no acute fracture or subluxation. Electronically Signed: Irish Velásquez MD at 20:21 EDT ,
--- NOTE | 2023-03-29 19:42 | CM.ED ---
Social Work SW performed chart review; patient has HCPOA documents on file as of 2019. Patient's HCPOA is patient's ex , Giovana and alternate is patient's daughter, Michelle. It is noted on patient's HCPOA document the patient has not completed LW. Carine Springer MEDICAL SUPPLY TECHNICIAN, KRISTIAN
--- NOTE | 2023-03-29 22:01 | EDS_ITS ---
HPI HPI - Fall History of Present Illness Chief Complaint: Fall Detail of Chief Complaint: Hit head. Informant: patient and family Occured/Mechanism Occurred: Today Mechanism/Context: Yes same level fall and Yes trip Pain/Injury Pain Location: head and upper extremity Quality of Pain: Dull Current Severity: Mild Maximum Severity: Mild Associated Symptoms Associated Symptoms: Negative for Parasthesias, Weakness, Loss of function, I nability to ambulate, Loss of consciousness or Amnesia Narrative Narrative: 72-year-old male extensive past medical history including A-fib, COPD, peripheral vascular disease etc. reportedly tripped and fell getting out of a car hit his head. Also complaining of left shoulder discomfort. Denies recent illness. Prior similar symptoms: Yes Recent Illness/Hospitalization: No PFSH PFSH Medical History Asthma Atrial fibrillation Chronic pain COPD (chronic obstructive pulmonary disease) Depression Diabetes Falls frequently High cholesterol Hypertension Irregular heart beat Kidney stones On home oxygen therapy Pancreatitis Seizures Sleep apnea Smoker Stroke/cerebrovascular accident Home Medications tamsulosin 0.4 mg capsule 0.4 mg PO QHS bph 01/26/14 [History Last Taken 10/25/19 08:33] finasteride 5 mg tablet 5 mg PO DAILY prostate 11/14/14 [History Last Taken 10/25/19 08:35] atorvastatin 40 mg tablet 40 mg PO QHS Cholesterol 09/23/15 [History Last Taken 03/25/20] sertraline 50 mg tablet 100 mg PO DAILY mood stabilizer 12/02/15 [History Last Taken 10/25/19 08:35] mirtazapine 15 mg tablet 15 mg PO QHS anti depressant 08/16/19 [History Last Taken 10/25/19 20:18] clopidogrel 75 mg tablet 75 mg PO DAILY blood thinner 10/25/19 [History Last Taken 03/26/20] carbamazepine 200 mg tablet 200 mg PO Q12H Check with primary doctor 10/26/19 [History Last Taken 10/25/19 20:18] albuterol sulfate 2.5 mg/3 mL (0.083 %) solution for nebulization 2.5 mg (3 mL) inhalation Q4H PRN PRN sob/wheezing 08/12/20 [Rx Last Taken Unknown] losartan 100 mg tablet 100 mg PO DAILY Blood pressure 08/19/21 [History Last Taken Unknown] pantoprazole 40 mg tablet,delayed release 40 mg PO DAILY GERD 08/19/21 [History Last Taken Unknown] lidocaine 5 % topical patch 1 patch topical DAILY 10/08/21 [History Last Taken Unknown] nifedipine 90 mg tablet,extended release 90 mg PO DAILY 11/25/21 [History Last Taken Unknown] acetaminophen 325 mg tablet (Tylenol) 650 mg (2 x 325 mg) PO Q6H PRN PRN Pain 1- 10 Or Fever #0 tabs 11/30/21 [Rx Last Taken Unknown] alendronate 70 mg tablet 70 mg PO QWEEK #1 TAB 11/30/21 [Rx Last Taken Unknown] ferrous sulfate 325 mg (65 mg iron) tablet (FeroSul) 325 mg PO BID #1 TAB 11/30/21 [Rx Last Taken Unknown] food supplemt, lactose-reduced (Ensure Clear oral liquid) 120 ml PO 4X/DAY #0 mL 11/30/21 [Rx Last Taken Unknown] ipratropium 0.5 mg-albuterol 3 mg (2.5 mg base)/3 mL nebulization soln 3 ml inhalation 4XD #3 mL 11/30/21 [Rx Last Taken Unknown] nicotine 21 mg/24 hr daily transdermal patch 21 mg transdermal DAILY #0 ea 11/30/21 [Rx Last Taken Unknown] metoprolol succinate 25 mg tablet,extended release 24 hr 25 mg PO DAILY #30 tabs 01/28/22 [Rx Last Taken Unknown] hydrocodone-acetaminophen 5-325mg 5mg-325mg 1 tab PO Q6H PRN PRN Pain 3 days #10 TABLETS 02/25/23 [Rx Last Taken Unknown] Allergy/AdvReac Type Severity Reaction Status Date / Time No Known Allergies Allergy Verified 02/25/23 17:24 Family History Other Heart disease Surgical History History of appendectomy S/P arterial stent Social History household members: none Smoking Status: Current every day smoker tobacco type: cigarettes alcohol intake: former details: Former 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 ROS ED ROS Narrative Denies recent illness. Review of Systems ROS Unobtainable: Denies due to encephalopathy Constitutional Constitutional ED: Denies chills or fever(s) Eyes Eyes: Denies blurry vision ENT ENT ED: Denies ear pain Cardiovascular Cardiovascular: Denies chest pain Respiratory/Chest Respiratory/Chest: Denies cough or dyspnea Gastrointestinal Gastrointestinal: Denies abdominal pain Genitourinary Genitourinary ED: Denies dysuria or hematuria Musculoskeletal Musculoskeletal: Denies arthralgias Integumentary Denies abscess Neurologic Neurologic: Denies headache(s) Psychiatric Psychiatric: Denies anxiety Endocrine Endocrinology: Denies polydipsia Hematologic/Lymphatic Hematologic/Lymphatic: Denies easy bleeding or easy bruising Allergic/Immunologic Allergic/Immunologic ED: Denies mouth swelling or tongue swelling EXAM Physical Exam Narrative Exam Narrative: 72-year-old male vital signs stable afebrile. Initial blood pressure elevated 243/88. Pulse ox 97% on room air. Afebrile. He does not look septic or toxic. H EENT exam pupils round reactive light extra motions are intact. No facial trauma. I do not find any hematomas or lacerations on his scalp. His scalp is nontender. C-spine trachea nontender. Lungs clear. Heart regular rate about 85 no murmur. Chest wall and ribs nontender. Abdomen soft nontender. Back and spine nontender. Moving all 4 extremities. Is mild tenderness to his left shoulder and abrasion on the posterior aspect of his upper arm. No gross bony deformity. Left elbow: Forearm and wrist and hand are nontender. 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 Right upper extremity is nontender no deformity. On his right leg he is a contusion behind his right lateral knee. And laterally. There is no significant bony deformity or tenderness. Both hips, knees ankles and feet are otherwise unremarkable. Neurologically is awake. He is answering questions and following commands. He is moving all 4 extremities. Const Vital Signs: 03/29/23 18:17 03/29/23 19:20 Temperature 97.6 F L Temperature Source Temporal Pulse Rate 103 H 84 Respiratory Rate 16 18 Blood Pressure 243/88 H 195/80 H Blood Pressure Mean 139 118 Pulse Ox 97 92 Oxygen Delivery Method Room Air Room Air Positive well nourished and well developed; Negative for cachectic, contractures or unkempt General Appearance ED: well developed and NAD; Negative for unkempt, cachectic or contractures Nutritional Appearance: Negative for cachectic HEENT Reports normocephalic HEENT Narrative: Reported head trauma but no hematomas, abrasions nor lacerations. Nontender. atraumatic; Negative for trauma, contusion, hematoma or tenderness Eyes PERRL and EOMs intact bilaterally General Eye ED: Negative for pale conjunctiva or scleral icterus Neck full ROM, no lymphadenopathy and supple General: Negative for tenderness Chest Wall inspection of chest normal and palpation of chest normal Chest: Negative for other Resp normal respiratory effort, no retractions and clear to auscultation bilaterally Auscultation: Negative for rales, rhonchi or wheezes Cardio regular rate, regular rhythm, S1 normal heart sound, S2 normal heart sound and no murmurs Rate: Negative for bradycardia or tachycardic GI non-tender, non-distended and no masses Inspection: Negative for abdominal distention Auscultation: normoactive bowel sounds Palpation: soft; Negative for guarding Back/Spine no CVA tenderness General Back: Negative for CVA tenderness Cervical Spine: Negative for cervical spine tenderness Thoracic Spine / Upper Back: Negative for ROM limited or thoracic spinal tenderness Lumbar Spine / Lower Back: Negative for lumbar spinal tenderness or paraspinal muscle tenderness Neuro moves all extremities and no focal motor deficits Jacob Coma Scale: document GCS findings Spontaneous Obeys Commands Oriented 15 Sensorium / Orientation: alert, oriented to person and oriented to place Motor Exam: strength 5/5 throughout Psych Appearance: Negative for unkempt Skin Skin Narrative: Abrasion and contusion right lateral knee. Also left upper arm. General Skin Exam: Negative for other Lesions: no lesions Rashes: no rashes Trauma: abrasion MDM MDM MDM Narrative Medical decision making narrative: 72-year-old male fell hit his head reportedly on blood thinners. CAT scan of his brain showed no acute abnormality. No skull fracture. No bleed. Read by the radiologist. Left shoulder x-ray showed no acute abnormality. Repeat exam patient doing well at 10 PM. Will be discharged home with his family. History & Record Review Discussion w/independent historian: Patient Additional record(s) reviewed:: Prior inpatient record, Prior outpatient record, Prior ED visit and Prior labs Radiography Diagnostic Testing: Clinical Impression(s) from Imaging Studies Brain CT 03/29/23 19:27 IMPRESSION: Chronic changes as described, stable study in the interval. Specifically, no acute intracranial hemorrhage or space-occupying lesion. No skull fracture. Electronically Signed: Irish Mischiu, MD at 19:56 EDT , Shoulder X-Ray 03/29/23 19:41 IMPRESSION: Mild degenerative disease with no acute fracture or subluxation. Electronically Signed: Irish Velásquez MD at 20:21 EDT , Left shoulder x-ray, myself and radiologist showed no acute abnormality. Chronic changes. No fracture. No dislocation. Discharge Plan Triage Chief Complaint: Fall ED Provider: Aris Dixon Dx/Rx/DC Orders Clinical Impression: Fall, 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, History of atrial fibrillation, Head injury, Contusion of left shoulder, Abrasion of leg, History of COPD Instructions: ED Head Injury (Adult) Prescriptions: No Action tamsulosin 0.4 MG capsule 0.4 mg PO QHS Patient Comments: Prostate and urine finasteride 5 MG tablet 5 mg PO DAILY Patient Comments: prostate atorvastatin 40 MG tablet 40 mg PO QHS Patient Comments: CHOLESTEROL sertraline 50 MG tablet 100 mg PO DAILY Patient Comments: depression mirtazapine 15 MG tablet 15 mg PO QHS clopidogrel 75 MG tablet 75 mg PO DAILY carbamazepine 200 MG tablet 200 mg PO Q12H Patient Comments: face pain albuterol sulfate 2.5 MG/3 ML solution for nebulization 2.5 mg INHALATION Q4H PRN PRN (Reason: sob/wheezing) 0RF losartan 100 mg tablet 100 mg PO DAILY pantoprazole 40 mg tablet,delayed release (DR/EC) 40 mg PO DAILY lidocaine 5 % adhesive patch,medicated 1 patch topical DAILY Patient Comments: PLACE 1 PATCH ON TO CLEAN INTACT SKIN FOR UP TO 12 HOURS IN A 24 HOUR PERIOD nifedipine 90 mg tablet extended release 90 mg PO DAILY acetaminophen [Tylenol] 325 mg Tablet 650 mg PO Q6H PRN PRN (Reason: Pain 1-10 Or Fever) Qty: 0 0RF Ensure Clear Liquid 120 ml PO 4X/DAY Qty: 0 0RF ferrous sulfate [FeroSul] 325 mg (65 mg iron) Tablet 325 mg PO BID Qty: 1 0RF ipratropium-albuterol 0.5 mg-3 mg(2.5 mg base)/3 mL Solution For Nebulization 3 ml inhalation 4XD Qty: 3 0RF nicotine 21 mg/24 hr Patch 24 Hour 21 mg transdermal DAILY Qty: 0 0RF alendronate 70 mg tablet 70 mg PO QWEEK Qty: 1 0RF metoprolol succinate 25 mg tablet extended release 24 hr 25 mg PO DAILY Qty: 30 0RF hydrocodone-acetaminophen [hydrocodone-acetaminophen] 5-325 mg tablet 1 tab PO Q6H PRN PRN (Reason: Pain) 3 Days Qty: 10 0RF Primary Care Provider: Daija Douglas Referrals: Daija Douglas MD [Primary Care Provider] - As Needed Activity Restrictions/Additional Instructions: CAT scan of his brain and x-ray of his shoulder were both unremarkable. Tylenol for any pain. Doctor as needed. Return if intractable vomiting or not behaving his baseline. Disposition Disposition: Home, Self Care
== END 2023-03-29 22:57 | disposition home or self-care (01) ==
PROVIDERS: Emergency Provider Emergency Medicine; PCP Internal Medicine; Visit Provider Emergency Medicine
DX: S09.90XA Unspecified injury of head, initial encounter (principal); J44.9 Chronic obstructive pulmonary disease, unspecified; S40.012A Contusion of left shoulder, initial encounter; S80.211A Abrasion, right knee, initial encounter; F17.210 Nicotine dependence, cigarettes, uncomplicated; Z99.81 Dependence on supplemental oxygen; Z86.73 Personal history of transient ischemic attack (TIA), and cerebral infarction without residual deficits; Z79.01 Long term (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 of anticoagulants; W18.30XA Fall on same level, unspecified, initial encounter
CPT/HCPCS: 99282; 70450; 73030

== ENCOUNTER 2023-03-30 14:09 | Inpatient (IN) | payer MEDICARE, SELFPAY ==
[2023-03-30] VITALS (7 sets, daily range): BP systolic 160–212; BP diastolic 78–89; PULSE 70–87; RESP 18; TEMP 35.8–36.7; O2SAT 95–97; BMI 20.9
--- NOTE | 2023-03-30 15:45 | EKG12_ITS ---
Test Reason : FALL Blood Pressure : / mmHG Vent. Rate : 076 BPM Atrial Rate : 076 BPM P-R Int : 158 ms QRS Dur : 086 ms QT Int : 372 ms P-R-T Axes : -03 072 083 degrees QTc Int : 418 ms Sinus rhythm with Premature atrial complexes Otherwise normal ECG Confirmed by DIMAS RANDALL, NATE ([id number]), managing editor NARGIS VAN ([id number]) on 04/04/2023 7:56:40 AM Referred By: Confirmed By:NATE COCHRAN MD
--- NOTE | 2023-03-30 15:46 | CT_ITS ---
STUDY: CT THORACIC SPINE WITHOUT CONTRAST REASON FOR EXAM: Male, 72 years old. Trauma RADIATION DOSAGE (If Supplied By Facility): CTDIvol = ( 18.42 ) mGy, DLP = ( 795.10 ) mGycm TECHNIQUE: The patient was scanned in a multi detector CT scanner. High resolution imaging was performed. Images were obtained from C5-C6 to L1-L2. Sagittal and coronal images were reconstructed. Individualized dose optimization techniques were used for this CT. COMPARISON: None. FINDINGS: There is multilevel degenerative disc disease and cervical spondylosis. There is an increased kyphosis of the thoracic spine. There is scoliosis, convexity to the right. There is multilevel endplate spondylosis of the thoracic spine. There is multilevel degenerative disc disease with loss of the disc space heights. Diffuse osteopenia/osteoporosis. There is mild decrease in vertebral body height on the left side of T11 which may indicate sequela of minimal compression fracture, exact age indeterminate. The vertebral body height throughout the remainder of the thoracic spine is fairly well-preserved. The soft tissue structures are unremarkable. Calcified atherosclerotic disease throughout the aorta noted. There are diffuse emphysematous changes throughout the lung batres. There is biapical pleural thickening with subpleural scarring. CT/Spine Thoracic without Contras IMPRESSION: Diffuse osteopenia/osteoporosis with minimal compression fracture of T11, exact age indeterminate. No retropulsion or extension to the pedicles visualized. Underlying degenerative disease. No subluxation. Electronically Signed: Irish Velásquez MD at 17:12 EDT ,
--- NOTE | 2023-03-30 15:46 | RAD_ITS ---
STUDY: X-RAY - PELVIS REASON FOR EXAM: Male, 72 years old. Trauma TECHNIQUE: One view of the pelvis was obtained. COMPARISON: None. FINDINGS: Increased fecal debris within the colon consistent with constipation. Normal visualized soft tissue structures. Vascular calcifications consistent with peripheral lateral disease. Stenting throughout the bilateral iliac arteries. Surgical clips projecting over the left hip/inguinal region. There is narrowing with cortical sclerosis and osteophyte formation of the sacroiliac joint consistent with degenerative osteoarthritic changes. Normal visualized bilateral superior and inferior pubic rami. Normal pubic symphysis. Normal ischial tuberosities. Normal visualized right femoral head. Normal right acetabulum. There is mild articular joint space narrowing of the right hip. Normal visualized left femoral head. Normal left acetabulum. There is mild articular joint space narrowing of the left hip. RAD/Pelvis 1 or 2 Views IMPRESSION: Mild multilevel degenerative disease with no acute fracture or subluxation. Electronically Signed: Irish Velásquez MD at 17:14 EDT ,
--- NOTE | 2023-03-30 15:46 | RAD_ITS ---
STUDY: X-RAY - RIGHT SHOULDER REASON FOR EXAM: Male, 72 years old. Trauma TECHNIQUE: 3 view(s) of the shoulder. COMPARISON: None. FINDINGS: There is mild degenerative arthrosis of the glenohumeral articulation. There is degenerative arthrosis of the acromioclavicular joint with mild inferior osseous spur formation. Normal acromion. Normal humeral head and visualized proximal humerus. The soft tissue structures are unremarkable. There is no demonstrated fracture. Normal visualized pulmonary apex. RAD/Shoulder min 2 Views IMPRESSION: Mild degenerative disease as described with no acute fracture or subluxation. Electronically Signed: Irish Velásquez MD at 17:15 EDT ,
--- NOTE | 2023-03-30 15:47 | EDS_ITS ---
HPI History of Present Illness Chief Complaint: Fall Informant: patient and family Narrative Narrative: Patient presents with falls and multiple areas of pain. This patient falls quite frequently. He states he has been falling for years. He states he has a walker but it does not do much good. However, his sister states that his house is so full of material that you cannot get a walker through it so he does not actually use the walker. He has fallen a little bit more this week than normal but he falls almost every day. He was seen here yesterday for a fall. He has not fallen since and they all agree on that. But he still has areas of pain and his sister was concerned so she had him brought in again. His largest area of complaint is the lower thoracic spine. He also has both shoulders sore. He swears he did not hit his head but they did scan his head yesterday. He is not having neck pain. He denies fevers or chills. He admits that he feels weaker than normal but he thinks it is just due to pain. [facility] Medical History (Updated 03/30/23 @ 20:[address] Huber Alvarado MD) Asthma Atrial fibrillation Chronic pain COPD (chronic obstructive pulmonary disease) COPD (chronic obstructive pulmonary disease) Depression Diabetes Falls frequently High cholesterol Hypertension Irregular heart beat Kidney stones On home oxygen therapy Pancreatitis Seizures Sleep apnea Smoker Stroke/cerebrovascular accident Home Medications tamsulosin 0.4 mg capsule 0.4 mg PO QHS bph 01/26/14 [History Last Taken 03/28/23] finasteride 5 mg tablet 5 mg PO DAILY prostate 11/14/14 [History Last Taken 03/28/23] atorvastatin 40 mg tablet 40 mg PO QHS Cholesterol 09/23/15 [History Last Taken 03/28/23] sertraline 50 mg tablet 100 mg PO DAILY mood stabilizer 12/02/15 [History Last Taken 03/28/23] mirtazapine 15 mg tablet 15 mg PO QHS anti depressant 08/16/19 [History Last Taken 03/28/23] clopidogrel 75 mg tablet 75 mg PO DAILY blood thinner 10/25/19 [History Last Taken 03/28/23] carbamazepine 200 mg tablet 200 mg PO Q12H Check with primary doctor 10/26/19 [History Last Taken 03/28/23] losartan 100 mg tablet 100 mg PO DAILY Blood pressure 08/19/21 [History Last Taken 03/28/23] pantoprazole 40 mg tablet,delayed release 40 mg PO DAILY GERD 08/19/21 [History Last Taken 03/28/23] nifedipine 90 mg tablet,extended release 90 mg PO DAILY 11/25/21 [History Last Taken 03/28/23] acetaminophen 325 mg tablet (Tylenol) 650 mg (2 x 325 mg) PO Q6H PRN PRN Pain 1- 10 Or Fever #0 tabs 11/30/21 [Rx Last Taken 03/28/23] alendronate 70 mg tablet 70 mg PO QWEEK #1 TAB 11/30/21 [Rx Last Taken 03/28/23] ferrous sulfate 325 mg (65 mg iron) tablet (FeroSul) 325 mg PO BID #1 TAB 11/30/21 [Rx Last Taken 03/28/23] nicotine 21 mg/24 hr daily transdermal patch 21 mg transdermal DAILY #0 ea 11/30/21 [Rx Last Taken 03/28/23] hydrocodone-acetaminophen 5-325mg 5mg-325mg 1 tab PO Q6H PRN PRN Pain 3 days #10 TABLETS 02/25/23 [Rx Last Taken 03/28/23] albuterol sulfate 90 mcg/actuation aerosol inhaler 1 puff inhalation Q8H 03/30/23 [History Last Taken 03/28/23] metoprolol tartrate 25 mg tablet 25 mg PO DAILY 03/30/23 [History Last Taken 04/10] Allergy/AdvReac Type Severity Reaction Status Date / Time No Known Allergies Allergy Verified 03/30/23 14:14 Family History Other Heart disease Surgical History History of appendectomy S/P arterial stent Social History household members: none Smoking Status: Current every day smoker tobacco type: cigarettes alcohol intake: former details: Former 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 ROS ED ROS Narrative A complete review of systems was performed and is negative except as documented in the history of present illness. Some specific details below. Constitutional: No recent fevers or chills. He has some decreased energy. EYE: No discharge, visual complaints, or pain. ENT: No difficulty swallowing. No swelling. No pain. No reflux symptoms. Denies hitting his head in any time. CV: He does admit to some soreness mostly on the right side of his chest but he states that is where he hit it. It hurts to press or move. He is not short of breath though. Respiratory: No coughing or dyspnea. GI: No abdominal pain. No nausea vomiting diarrhea. No blood in stool. : No frequency dysuria or hematuria. Musculoskeletal: See history of present illness. Skin: No rash. Nondiaphoretic. He does have some contusions from fall and people helping him up. Neuro: No focal weakness or numbness. He does have a slight increase in generalized weakness though. Endocrine: No polyuria or polydipsia. EXAM Physical Exam Narrative Exam Narrative: CONSTITUTIONAL: Patient is nontoxic in appearance. The patient looks co mfortable. Work of breathing looks normal. HEENT: No notable trauma. Mucous membranes slightly dry. EYES: No conjunctival injection. No proptosis. NECK:No JVD. No stridor. CARDIOVASCULAR: Regular rate. Regular rhythm. No notable murmur. No JVD. RESPIRATORY: No respiratory distress. Breathing is unlabored. No wheezes. He does have some mild tenderness on the right superior lateral chest at the anterior axillary line. But I do not see any bruising there. I do not feel any subcu air. Saturations are normal at 97% on room air showing no hypoxia. GASTROINTESTINAL: Not distended. Bowel sounds are normal. No tenderness. No guarding. No rebound. No palpable mass. No bruit is heard. GENITOURINARY: No tenderness over the bladder. No CVA tenderness. MUSCULOSKELETAL: No deformities. Although both shoulders hurt he moves them both well and there is no sign of physical deformity or dislocation. At times he states the hips hurt at other times he states they do not. But they move pretty well. He states that the knees are sore but they are sore all the time. I do not see any bruising. There is no effusion. There is no tenderness. He moves them well. NEUROLOGICAL: Patient is alert and appropriate. No focal deficit noted. He is at baseline and acts normal per his sister in the room. SKIN: Not diaphoretic or pale. He does have some mild contusions in various spots and what looks like a handprint on his left upper arm where somebody likely helped him up which is what he states. PSYCHIATRIC: Patient is calm. Mood is appropriate. Const Vital Signs: 03/30/23 14:10 03/30/23 15:32 Temperature 96.5 F L Temperature Source Temporal Pulse Rate 87 Respiratory Rate 18 Respiratory Effort Normal Respiratory Depth Normal Respiratory Pattern Normal Blood Pressure 212/86 H Blood Pressure Mean 128 Pulse Ox 97 Oxygen Delivery Method Room Air Room Air MDM MDM MDM Narrative Medical decision making narrative: Patient's CBC shows no acute abnormalities. Patient's electrolytes show no significant abnormalities. Minimally low sodium. Patient's urine does show signs of infection with being cloudy, positive leukocyte esterase, 3+ bacteria and positive white cells. I looked at prior cultures. He did have some resistance. But he was sensitive to Zosyn so he was started on this. I have added lactate and urine cultures as well as blood culture Lactic acid level is pending. My independent interpretation of the 4 view x-ray of his right shoulder is negative for acute fracture consistent with final reading. My independent interpretation of the patient's single view pelvis x-ray shows DJD but no acute fracture. This is consistent with final reading. Single view chest x-ray my independent interpretation shows no acute process and this is also consistent with final reading. CT scan of his thoracic spine did note a very slight T11 compression fracture but it was uncertain age. He does have pain near this area but is actually a little bit higher in his back. But in either case this would not require acute treatment. We attempted to ambulate the patient. He was too weak to walk. He was close to falling just standing on the edge of the bed. This is evidently much weaker and more unstable than he normally is. Case is discussed with hospitalist and he will be admitted. His family is going to try to clean out his house somewhat while he is in the hospital so he actually has room to move around and use a walker in his house. Lab Data Attestation: I reviewed the patient's lab results. Labs: Laboratory Results - last 24 hr 03/30/23 03/30/23 16:03 17:04 WBC 10.0 RBC 4.81 Hgb 15.4 Hct 46.9 MCV 97.5 H MCH 32.0 MCHC 32.8 RDW Std Deviation 50.3 H RDW Coeff of Aly 13.9 Plt Count 276 MPV 9.8 Immature Gran % (Auto) 0.300 Neut % (Auto) 79.2 H Lymph % (Auto) 9.3 L [place] % (Auto) 10.5 H Eos % (Auto) 0.0 Baso % (Auto) 0.7 Absolute Neuts (auto) 7.9 H Absolute Lymphs (auto) 0.93 Nucleated RBC % 0 Sodium 134 L Potassium 4.0 Chloride 99 Carbon Dioxide 31.0 Anion Gap 4 L BUN 19 H Creatinine 1.19 Est GFR (MDRD) Af Amer 77 Est GFR (MDRD) Non-Af 64 BUN/Creatinine Ratio 16.0 Glucose 104 Calcium 9.8 Urine Color Yellow Urine Clarity Sl. Cloudy Urine pH 6.0 Ur Specific [place] 1.020 Urine Protein 100 H Urine Glucose (UA) Normal Urine Ketones Negative Urine Occult Blood 50 H Urine Nitrite Negative Urine Bilirubin Negative Urine Urobilinogen Normal Ur Leukocyte Esterase 500 H Urine RBC 0 SEEN Urine WBC 25-50 SEEN Ur Squamous Epith Cells 0-5 SEEN Urine Bacteria 3+ Urine Mucus 0 SEEN Radiography Diagnostic Testing: Clinical Impression(s) from Imaging Studies Pelvis X-Ray 03/30/23 15:46 IMPRESSION: Mild multilevel degenerative disease with no acute fracture or subluxation. Electronically Signed: Irish Velásquez MD at 17:14 EDT Reading Location ID and State: [address] [place] [address] , Service support , Shoulder X-Ray 03/30/23 15:46 IMPRESSION: Mild degenerative disease as described with no acute fracture or subluxation. Electronically Signed: Irish Velásquez MD at 17:15 EDT , Thoracic Spine CT 03/30/23 15:46 IMPRESSION: Diffuse osteopenia/osteoporosis with minimal compression fracture of T11, exact age indeterminate. No retropulsion or extension to the pedicles visualized. Underlying degenerative disease. No subluxation. Electronically Signed: Irish Velásquez MD at 17:12 EDT , Chest X-Ray 03/30/23 16:30 IMPRESSION: No acute cardiac pulmonary disease. Electronically Signed: Irish Velásquez MD at 17:15 EDT , EKG Initial EKG: Comments: My independent interpretation the patient's EKG shows sinus rhythm with occasional PACs. No PVC. Mild baseline variation and nonspecific changes. No acute ST elevation or depression. MN interval, QRS duration and QTc are normal. Discharge Plan Dx/Rx/DC Orders Clinical Impression: Compression fracture of thoracic vertebra, Multiple falls, Acute UTI, Inability to walk Disposition Disposition: [facility]
[2023-03-30] MEDS: 0.9% Normal Saline (500mL Bag) 500 ML 1000 ML IV (16:05)
[2023-03-30 16:13] LABS: Absolute Lymphocyte Count 0.93 X10^3/uL (0.83-4.51); Absolute Neutrophil Count 7.9 X10^3/uL (2.0-7.7); Basophil# 0.07 X10^3/uL; Basophil% 0.7 % (0-1); Hematocrit 46.9 % (40-54); Hemoglobin 15.4 g/dL (13.0-16.5); Lymphocyte # 0.93 X10^3/ul (0.83-4.51); Lymphocyte % 9.3 % (19-41); Mean Corp Hgb Conc 32.8 g/dL (32-36); Mean Corpuscular Volume 97.5 fL (80-94); Mean Platelet Vol. 9.8 fl (6.2-12.0); Monocyte# 1.05 X10^3/uL; Monocyte% 10.5 % (0-10); NRBC Flagged by Analyzer 0 % (0-5); Neutrophil # 7.92 X10^3/uL (2.7-7.7); Neutrophil % 79.2 % (47-70); Platelet Count 276 K/mm3 (150-450); RBC Distribution Width CV 13.9 % (11.6-14.6); RBC Distribution Width SD 50.3 fl (35.1-43.9); Red Blood Count 4.81 M/mm3 (4.6-6.2)
[2023-03-30 16:29] LABS: Anion Gap 4 (5-15); BUN 19 mg/dL (7-18); Calcium,Total 9.8 mg/dL (8.5-10.1); Chloride 99 mmol/L (98-107); Creatinine, Serum 1.19 mg/dL (0.70-1.30); EST Glomerular Filtration Rate 64 mL/min (>60); Est Glom Filt Rate - Afr Amer 77 mL/min (>60); Glucose 104 mg/dL (74-106); Sodium Level 134 mmol/L (136-145)
--- NOTE | 2023-03-30 16:30 | RAD_ITS ---
STUDY: X-RAY CHEST REASON FOR EXAM: Male, 72 years old. Trauma TECHNIQUE: Single AP portable view of the chest. COMPARISON: 03/02/2022. FINDINGS: The lungs are clear and expanded. There is no demonstrated pleural abnormality. Normal size heart. Normal mediastinum and gale. Normal visualized pulmonary arteries. There is atherosclerotic calcification of the aortic arch with tortuosity. There are diffuse degenerative changes of the visualized thoracic spine. There is degenerative osteoarthritis of the bilateral shoulders. There is no demonstrated abnormality of the visualized soft tissue structures of the upper abdomen. RAD/Chest 1 View (Portable) IMPRESSION: No acute cardiac pulmonary disease. Electronically Signed: Irish Velásqeuz MD at 17:15 EDT ,
[2023-03-30 17:09] LABS: Mucous, Urine 0 SEEN /hpf (<or=2+); Red Blood Cells-Urine 0 SEEN /hpf (0-5)
[2023-03-30 17:13] LABS: Color, Urine Yellow (Yellow); Glucose, Dipstick Normal (Normal); Ketone-Dipstick Negative (Negative); Leukocyte Esterase-Dipstick 500 /ul (Negative); Nitrite-Dipstick Negative (Negative); Occult Blood-Urine 50 /ul (Negative); Protein-Dipstick 100 mg/dl (Negative); Urine Bilirubin Dipstick Negative (Negative); Urine Clarity Sl. Cloudy (Clear); Urine Urobilinogen Normal (Normal)
[2023-03-30 17:41] LABS: Bacteria 3+ /hpf (None Seen); Squamous Epithelial Cells - UA 0-5 SEEN /hpf (0-5); White Blood Cells 25-50 SEEN /hpf (0-5)
--- NOTE | 2023-03-30 19:32 | PCM.HP.STD ---
HPI - General General Date of Admission: 03/30/23 Date of Service: 03/30/23 Chief Complaint: Weakness HPI Narrative PEDRO PABLO SIERRA, is a 72 M with a significant history of COPD; hyperlipidemia; hypertension; and chronic falls who presents to the emergency department with generalized weakness above his baseline. Of note the day before presentation patient was sent to the emergency department for fall and multiple images were done. Patient was discharged home. On this new day of presentation patient has not fallen but he is too weak to the point that he could not walk. Also patient reports of lower back pain. Also, the patient has a burning sensation with urination. [facility] Medical History (Updated 03/30/23 @ 20:[address] Fran Cartwright MD) Asthma Atrial fibrillation Chronic pain COPD (chronic obstructive pulmonary disease) COPD (chronic obstructive pulmonary disease) Depression Diabetes Falls frequently High cholesterol Hypertension Irregular heart beat Kidney stones On home oxygen therapy Pancreatitis Seizures Sleep apnea Smoker Stroke/cerebrovascular accident Home Medications tamsulosin 0.4 mg capsule 0.4 mg PO QHS bph 01/26/14 [History Last Taken 03/28/23] finasteride 5 mg tablet 5 mg PO DAILY prostate 11/14/14 [History Last Taken 03/28/23] atorvastatin 40 mg tablet 40 mg PO QHS Cholesterol 09/23/15 [History Last Taken 03/28/23] sertraline 50 mg tablet 100 mg PO DAILY mood stabilizer 12/02/15 [History Last Taken 03/28/23] mirtazapine 15 mg tablet 15 mg PO QHS anti depressant 08/16/19 [History Last Taken 03/28/23] clopidogrel 75 mg tablet 75 mg PO DAILY blood thinner 10/25/19 [History Last Taken 03/28/23] carbamazepine 200 mg tablet 200 mg PO Q12H Check with primary doctor 10/26/19 [History Last Taken 03/28/23] losartan 100 mg tablet 100 mg PO DAILY Blood pressure 08/19/21 [History Last Taken 03/28/23] pantoprazole 40 mg tablet,delayed release 40 mg PO DAILY GERD 08/19/21 [History Last Taken 03/28/23] nifedipine 90 mg tablet,extended release 90 mg PO DAILY 11/25/21 [History Last Taken 03/28/23] acetaminophen 325 mg tablet (Tylenol) 650 mg (2 x 325 mg) PO Q6H PRN PRN Pain 1-10 Or Fever #0 tabs 11/30/21 [Rx Last Taken 03/28/23] alendronate 70 mg tablet 70 mg PO QWEEK #1 TAB 11/30/21 [Rx Last Taken 03/28/23] ferrous sulfate 325 mg (65 mg iron) tablet (FeroSul) 325 mg PO BID #1 TAB 11/30/21 [Rx Last Taken 03/28/23] nicotine 21 mg/24 hr daily transdermal patch 21 mg transdermal DAILY #0 ea 11/30/21 [Rx Last Taken 03/28/23] hydrocodone-acetaminophen 5-325mg 5mg-325mg 1 tab PO Q6H PRN PRN Pain 3 days #10 TABLETS 02/25/23 [Rx Last Taken 03/28/23] albuterol sulfate 90 mcg/actuation aerosol inhaler 1 puff inhalation Q8H 03/30/23 [History Last Taken 03/28/23] metoprolol tartrate 25 mg tablet 25 mg PO DAILY 03/30/23 [History Last Taken 03/28/23] Allergy/AdvReac Type Severity Reaction Status Date / Time No Known Allergies Allergy Verified 03/30/23 14:14 Family History Other Heart disease Surgical History History of appendectomy S/P arterial stent Social History household members: none Smoking Status: Current every day smoker tobacco type: cigarettes alcohol intake: former details: Former 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 ROS Narrative Pertinent positives and pertinent negatives as noted in HPI. All other systems were reviewed and are negative Vital Signs Vital Signs Vital Signs: 03/30/23 14:10 03/30/23 15:32 Temperature 96.5 F L Temperature Source Temporal Pulse Rate 87 Respiratory Rate 18 Respiratory Effort Normal Respiratory Depth Normal Respiratory Pattern Normal Blood Pressure 212/86 H Blood Pressure Mean 128 Pulse Ox 97 Oxygen Delivery Method Room Air Room Air Physical Exam Narrative Physical exam: General: Well-nourished, well-developed. Head: Normocephalic, atraumatic, no tenderness Eyes: Vision is grossly intact. EOMI ENT, no trauma, moist mucous membranes, no rhinorrhea Neck: Nontender, No thyromegaly. CVS: Regular rate and rhythm. S1-S2 present. No murmur, gallop or rub. Respiratory : clear to auscultation bilaterally, chest wall nontender Abdomen: Soft, nontender, nondistended, normal bowel sounds, no masses : Deferred Back: Nontender, no midline spinal tenderness, deformities, step-offs Extremities: Nontender full range of motion Skin: Normal color, no trauma, abrasions Neuro: Alert, oriented, cranial nerves II through XII grossly intact. Psychiatry: Normal mood. Normal affect. Not depressed. Not anxious. Results Lab / Micro Data 03/30/23 16:03 03/30/23 16:03 Labs: Laboratory Results - last 24 hr 03/30/23 16:03: WBC 10.0, RBC 4.81, Hgb 15.4, Hct 46.9, MCV 97.5 H, MCH 32.0, MCHC 32.8, RDW Std Deviation 50.3 H, RDW Coeff of Aly 13.9, Plt Count 276, MPV 9.8, Immature Gran % (Auto) 0.300, Neut % (Auto) 79.2 H, Lymph % (Auto) 9.3 L, [place] % (Auto) 10.5 H, Eos % (Auto) 0.0, Baso % (Auto) 0.7, Absolute Neuts (auto) 7.9 H, Absolute Lymphs (auto) 0.93, Nucleated RBC % 0, Sodium 134 L, Potassium 4.0, Chloride 99, Carbon Dioxide 31.0, Anion Gap 4 L, BUN 19 H, Creatinine 1.19, Est GFR (MDRD) Af Amer 77, Est GFR (MDRD) Non-Af 64, BUN/Creatinine Ratio 16.0, Glucose 104, Calcium 9.8 03/30/23 17:04: Urine Color Yellow, Urine Clarity Sl. Cloudy, Urine pH 6.0, Ur Specific [place] 1.020, Urine Protein 100 H, Urine Glucose (UA) Normal, Urine Ketones Negative, Urine Occult Blood 50 H, Urine Nitrite Negative, Urine Bilirubin Negative, Urine Urobilinogen Normal, Ur Leukocyte Esterase 500 H, Urine RBC 0 SEEN, Urine WBC 25-50 SEEN, Ur Squamous Epith Cells 0-5 SEEN, Urine Bacteria 3+, Urine Mucus 0 SEEN Radiology Impression Pelvis X-Ray 03/30/23 15:46 IMPRESSION: Mild multilevel degenerative disease with no acute fracture or subluxation. Electronically Signed: Irish Velásquez MD at 17:14 EDT Reading Location ID and State: [id number] / [place] , Service support , Shoulder X-Ray 03/30/23 15:46 IMPRESSION: Mild degenerative disease as described with no acute fracture or subluxation. Electronically Signed: Irish Vleásquez MD at 17:15 EDT Reading Location ID and State: [id number] / [place] , Service support , Thoracic Spine CT 03/30/23 15:46 IMPRESSION: Diffuse osteopenia/osteoporosis with minimal compression fracture of T11, exact age indeterminate. No retropulsion or extension to the pedicles visualized. Underlying degenerative disease. No subluxation. Electronically Signed: Irish Velásquez MD at 17:12 EDT Reading Location ID and State: [facility] / [place] , Service support , Chest X-Ray 03/30/23 16:30 IMPRESSION: No acute cardiac pulmonary disease. Electronically Signed: Irish Velásquez MD at 17:15 EDT Reading Location ID and State: [facility] / [place] , Service support , Assessment & Plan Assessment/Plan (1) UTI (urinary tract infection): QUALIFIERS: Urinary tract infection type: acute cystitis Hematuria presence: without hematuria Qualified Code(s): N30.00 - Acute cystitis without hematuria (2) Weakness: (3) Chronic respiratory failure with hypoxia: PLAN: Plan Acute cystitis Likely contributing to his weakness. Urinalysis at the emergency department was remarkable for leukocyte esterase of 500; urine RBC of 25-50; urine bacteria 3+. Of note urine nitrite was negative. Previous urine culture microbiology was reviewed. Urine culture on 10/23/2022 was resistant to many organisms including ampicillin; ceftriaxone; Bactrim; and Levaquin. However it was sensitive to ampicillin/sulbactam; gentamicin; imipenem; Macrodantin; Zosyn; and tobramycin. Patient was started on Zosyn at the emergency department and continued Generalized weakness and frequent falls PT and OT to work with patient. Case management consult. Impression of chest x-ray by radiology: No acute cardiopulmonary disease. Independent review of chest x-ray by hospitalist: Agrees with radiology interpretation. Thoracic spine CT on presentation with minimal compression fracture of T1 which is age indeterminate. Tylenol ordered. As needed oxycodone ordered. COPD Does not seem to be in exacerbation As needed albuterol ordered. Hypertensive Urgency Home blood pressure medication resumed.. Hydralazine ordered. Trend blood pressures Tobacco abuse Counseled Nicotine patch prescribed. Paroxysmal A-fib Noted RVR. Metoprolol continued. Not on anticoagulation which I agree with if patient has multiple falls. History of CVA Stable Plavix continued. DVT prophylaxis SCDs ordered Time spent in the patient's overall evaluation,decision-making process, review of diagnostic data, adjustment of management, discussion with other providers, nursing nursing and ancillary staff involved in patient's care documentation, 70 minutes. Charges/Coding Visit Charges Inpatient E&M: 48573 Init Hosp L3
[2023-03-30] MEDS: Piperacil/Tazobactam 4.5 GM in 0.9% Normal Saline (100mL MB+) 100 ML IV (20:20)
[2023-03-30 21:05] LABS: Lactic Acid 1.4 mmol/L (0.4-1.9)
[2023-03-30] MEDS: carBAMazepine 200 MG Tablet PO (21:47)
[2023-03-30] MEDS: Mirtazapine 15 MG Tablet PO (21:47)
[2023-03-30] MEDS: Metoprolol Tartrate 25 MG Tablet PO (21:47)
[2023-03-30] MEDS: Tamsulosin HCl 0.4 MG Capsule PO (21:48)
[2023-03-30] MEDS: Acetaminophen 325 MG Tablet 650 MG PO (21:48)
[2023-03-30] MEDS: Atorvastatin Calcium 40 MG Tablet PO (21:48)
[2023-03-31] VITALS (9 sets, daily range): BP systolic 105–172; BP diastolic 53–74; PULSE 56–81; RESP 16–18; TEMP 36.4–36.7; O2SAT 91–96; BMI 20.5
[2023-03-31] MEDS: Piperacil/Tazobactam 3.375 GM in 0.9% Normal Saline (50mL MB+) 50 ML IV ×3 (05:46→21:16)
[2023-03-31] MEDS: 0.9% Normal Saline (250mL Bag) 250 ML 15 ML IV (05:46)
--- NOTE | 2023-03-31 07:12 | PCM.PN.HOSP ---
Reason for Visit Reason for Visit: Diagnoses Chronic respiratory failure with hypoxia (03/30/23) Acute cystitis without hematuria (03/30/23) Weakness (03/30/23) Subjective Subjective Patient still feeling very weak today and not much better from last night yet, continue on IV antibiotics, worked with therapy and said he feels somewhat sore all over and did when he was working with him from his recent falls Objective Data Objective Data Vital Signs: Vital Signs Temp Pulse Resp BP Pulse Ox O2 Del Method 98.0 F 71 16 156/72 H 96 Room Air 03/31/23 05:46 03/31/23 05:46 03/31/23 05:46 03/31/23 05:46 03/31/23 05:46 03/31/23 05:46 Oxygen Delivery Method Room Air Weight: 64.4 kg Body Mass Index (BMI) 20.9 Intake & Output: Intake and Output for Last 24 Hours 03/29/23 03/30/23 03/31/23 23:59 23:59 23:59 Intake Total 600 / 700 300 / 300 Output Total 100 / 100 200 / 200 Balance 500 / 600 100 / 100 Lab / Micro Data 03/31/23 06:25 03/31/23 06:25 Labs: Laboratory Results - last 24 hr 03/30/23 16:03: WBC 10.0, RBC 4.81, Hgb 15.4, Hct 46.9, MCV 97.5 H, MCH 32.0, MCHC 32.8, RDW Std Deviation 50.3 H, RDW Coeff of Aly 13.9, Plt Count 276, MPV 9.8, Immature Gran % (Auto) 0.300, Neut % (Auto) 79.2 H, Lymph % (Auto) 9.3 L, [place] % (Auto) 10.5 H, Eos % (Auto) 0.0, Baso % (Auto) 0.7, Absolute Neuts (auto) 7.9 H, Absolute Lymphs (auto) 0.93, Nucleated RBC % 0, Sodium 134 L, Potassium 4.0, Chloride 99, Carbon Dioxide 31.0, Anion Gap 4 L, BUN 19 H, Creatinine 1.19, Est GFR (MDRD) Af Amer 77, Est GFR (MDRD) Non-Af 64, BUN/Creatinine Ratio 16.0, Glucose 104, Calcium 9.8 03/30/23 17:04: Urine Color Yellow, Urine Clarity Sl. Cloudy, Urine pH 6.0, Ur Specific [place] 1.020, Urine Protein 100 H, Urine Glucose (UA) Normal, Urine Ketones Negative, Urine Occult Blood 50 H, Urine Nitrite Negative, Urine Bilirubin Negative, Urine Urobilinogen Normal, Ur Leukocyte Esterase 500 H, Urine RBC 0 SEEN, Urine WBC 25-50 SEEN, Ur Squamous Epith Cells 0-5 SEEN, Urine Bacteria 3+, Urine Mucus 0 SEEN 03/30/23 20:20: Lactic Acid 1.4 Radiography Diagnostic Testing: Radiology Impression Pelvis X-Ray 03/30/23 15:46 IMPRESSION: Mild multilevel degenerative disease with no acute fracture or subluxation. Electronically Signed: Irish Velásquez MD at 17:14 EDT Reading Location ID and State: [facility] / [facility] , Service support , Shoulder X-Ray 03/30/23 15:46 IMPRESSION: Mild degenerative disease as described with no acute fracture or subluxation. Electronically Signed: Irish Velásquez MD at 17:15 EDT Reading Location ID and State: [facility] / [facility] , Service support , Thoracic Spine CT 03/30/23 15:46 IMPRESSION: Diffuse osteopenia/osteoporosis with minimal compression fracture of T11, exact age indeterminate. No retropulsion or extension to the pedicles visualized. Underlying degenerative disease. No subluxation. Electronically Signed: Irish Velásquez MD at 17:12 EDT Reading Location ID and State: [facility] / [facility] , Service support , Chest X-Ray 03/30/23 16:30 IMPRESSION: No acute cardiac pulmonary disease. Electronically Signed: Irish Velásquez MD at 17:15 EDT Reading Location ID and State: [facility] / [facility] , Service support , Physical Exam Narrative General: Alert, oriented, no apparent distress HEENT: Atraumatic, normocephalic Eyes: Anicteric, normal conjunctiva, extraocular movements grossly intact Neck: Supple Respiratory: Clear to auscultation bilaterally, normal respiratory effort Cardiovascular: Regular rate GI: Soft, nontender, nondistended Extremities: No edema Musculoskeletal: Moving all extremities Neuro: No overt focal neurological deficits Skin: Patient has scattered bruising Psych: Cooperative Assessment & Plan Assessment/Plan (1) UTI (urinary tract infection): QUALIFIERS: Hematuria presence: without hematuria Urinary tract infection type: acute cystitis Qualified Code(s): N30.00 - Acute cystitis without hematuria (2) Weakness: (3) Chronic respiratory failure with hypoxia: PLAN: Plan #Acute cystitis -Likely contributing to his weakness. -Urinalysis at the emergency department was remarkable for leukocyte esterase of 500; urine RBC of 25-50; urine bacteria 3+. Of note urine nitrite was negative. Previous urine culture microbiology was reviewed. -Urine culture on 10/23/2022 was resistant to many organisms including ampicillin; ceftriaxone; Bactrim; and Levaquin. However it was sensitive to ampicillin/sulbactam; gentamicin; imipenem; Macrodantin; Zosyn; and tobramycin. -Patient was started on Zosyn at the emergency department and continued -03/31: Follow cultures, continue antibiotics #Generalized weakness and frequent falls -PT and OT to work with patient. Case management consult. -Impression of chest x-ray by radiology: No acute cardiopulmonary disease. -Thoracic spine CT on presentation with minimal compression fracture of T1 which is age indeterminate. -Tylenol ordered. As needed oxycodone ordered. -03/31: Seen the day prior to admission as he had fallen and imaging negative for acute process, Re-presented to the ED not because of another fall but just because of the pain and generalized weakness on top of all of his frequent falls. PT/OT, recommendation from PT was SNF placement given his falls and weakness, patient tentatively open to that depending on where he would be able to go and if this is ultimately the recommended course of action #COPD- uses 2L home O2 -Does not seem to be in exacerbation -As needed albuterol ordered. -03/31: At baseline #Hypertensive Urgency -Home blood pressure medication resumed. -Hydralazine ordered. -Trend blood pressures -03/31: Decrease significantly, query compliance with home medications, will adjust medications #GERD -Continue PPI #Tobacco abuse -Counseled -Nicotine patch prescribed. #Paroxysmal A-fib -Metoprolol continued. Not on anticoagulation which I agree with if patient has multiple falls. #History of CVA -Stable -Plavix continued. -statin #BPH -on home tamsulosin and finasteride #DVT prophylaxis SCDs ordered Time spent in the patient's overall evaluation,decision-making process, review of diagnostic data, adjustment of management, discussion with other providers, nursing nursing and ancillary staff involved in patient's care documentation, 36 minutes. Charges/Coding Visit Charges Inpatient E&M: 78527 Subs Hosp L2
[2023-03-31 07:42] LABS: Absolute Lymphocyte Count 0.79 X10^3/uL (0.83-4.51); Absolute Neutrophil Count 4.7 X10^3/uL (2.0-7.7); Basophil# 0.06 X10^3/uL; Basophil% 0.9 % (0-1); Eosinophil# 0.05 X10^3/uL; Eosinophils% 0.8 % (0-5); Hematocrit 41.8 % (40-54); Hemoglobin 13.7 g/dL (13.0-16.5); Lymphocyte # 0.79 X10^3/ul (0.83-4.51); Lymphocyte % 12.4 % (19-41); Mean Corp Hgb Conc 32.8 g/dL (32-36); Mean Corpuscular Hgb 31.6 pg (27.0-32.0); Mean Corpuscular Volume 96.5 fL (80-94); Mean Platelet Vol. 9.8 fl (6.2-12.0); Monocyte# 0.73 X10^3/uL; Monocyte% 11.5 % (0-10); NRBC Flagged by Analyzer 0 % (0-5); Neutrophil # 4.72 X10^3/uL (2.7-7.7); Neutrophil % 74.2 % (47-70); Platelet Count 263 K/mm3 (150-450); RBC Distribution Width CV 13.8 % (11.6-14.6); RBC Distribution Width SD 49.2 fl (35.1-43.9); Red Blood Count 4.33 M/mm3 (4.6-6.2); White Blood Count 6.4 K/mm3 (4.4-11.0)
[2023-03-31 08:13] LABS: Anion Gap 10 (5-15); BUN 17 mg/dL (7-18); BUN/Creat Ratio 14.4 RATIO (10-20); Calcium,Total 8.8 mg/dL (8.5-10.1); Chloride 101 mmol/L (98-107); Creatinine, Serum 1.18 mg/dL (0.70-1.30); EST Glomerular Filtration Rate 64 mL/min (>60); Est Glom Filt Rate - Afr Amer 78 mL/min (>60); Estimated Creatinine Clearance 50.79 ml/min; Glucose 98 mg/dL (74-106); Sodium Level 139 mmol/L (136-145)
[2023-03-31] MEDS: Finasteride 5 MG Tablet PO (08:28)
[2023-03-31] MEDS: Losartan Potassium 100 MG Tablet PO (08:28)
[2023-03-31] MEDS: Pantoprazole Sodium 40 MG Tablet PO (08:28)
[2023-03-31] MEDS: Ferrous Sulfate 325 MG Tablet PO ×2 (08:28→17:03)
[2023-03-31] MEDS: NIFEdipine 90 MG Tablet PO (08:29)
[2023-03-31] MEDS: Clopidogrel Bisulfate 75 MG Tablet PO (08:29)
[2023-03-31] MEDS: Sertraline 100 MG Tablet PO (08:30)
[2023-03-31] MEDS: Enoxaparin 40 MG/0.4 ML Syringe SC (08:31)
[2023-03-31] MEDS: Metoprolol Tartrate 25 MG Tablet PO (08:39)
[2023-03-31] MEDS: Flu Vacc QS2023-24(65YR UP)/PF 240 MCG/0.7 ML Syringe IM (08:52)
[2023-03-31] MEDS: carBAMazepine 200 MG Tablet PO ×2 (08:54→19:44)
--- NOTE | 2023-03-31 10:20 | CASEMGMT ---
SEYMOUR BOLES Assessment: Face to Face with pt for initial transition planning/care coordination assessment. SEYMOUR BOLES introduced self and role at [facility], pt voices understanding and consents to assessment. Pt is A&O x3. Pt. sitting up in bed chair at bedside. Care providers, pharmacy, and demographics verified/updated. Admitting Dx: Acute UTI PCP: Misael Specialists: Denies Preferred Pharmacy: [facility] ([facility] Insurance: [employer] Prescription Benefit: yes LNOK: Giovana Bhakta(ex-) Living Will/HCPOA: Per chart review patient has both his LW and HCPOA on file with [facility]. Giovana Bhakta is his HCPOA Living Arrangements: Pt lives alone in a mobile home with no steps to enter. Pt. states prior to this admission he was I in all ADLs and IADLs Transportation: Pt states prior to this admission he was able to drive himself DME:shower chair, raised toilet seat, cane, rear WW, grab bars, hand held shower, medical alert, 4-6 L oxygen PRN HS. Pt. states he is not sure who the DME company is (per chart review it was through [employer] previously. Messaged [employer] to see if current provider). Denies needs for additional DME at this time. HHC/SNF: Per chart review, [facility], but he denies Hx of HHC. Pt states he feels he would benefit from more watching. He states he feels he could use assistance with cleaning and cooking. CM to follow. Advised pt to ask CM if any further question/concerns/needs arise, voices understanding. Pt Goal: Home with HHC Plan: TBD pending therapy troy
[2023-03-31] MEDS: Potassium Chloride Oral Tablet 20 MEQ 60 MEQ PO (10:30)
--- NOTE | 2023-03-31 11:33 | CASEMGMT ---
Discharge Planning A list of SNF providers including quality and resource use data and consistent with the patient's preferred geographic region, medical needs, and insurance network was created in [facility].? This list was provided to the SW. Jacquie Michaud Discharge Planning Asst.
--- NOTE | 2023-03-31 13:00 | CASEMGMT ---
Social Work SW met with pt to discuss discharge plan. Pt lives at home alone with limited support and is agreeable to short term SNF as recommended by therapy prior to return home. A list of SNF providers including quality and resource use data and consistent with the patient?s preferred geographic region, medical needs, and insurance network were provided from the [facility] Guide. SW reviewed list with pt and pts preferred provider is [facility]. Referral to be made. Plan: [facility], pending acceptance and precSHANE Garcia
--- NOTE | 2023-03-31 13:19 | CASEMGMT ---
Discharge Planning Referral sent to [facility] via [facility]. Jacquie Michaud, Discharge Planning Asst.
--- NOTE | 2023-03-31 14:03 | CASEMGMT ---
Discharge Planning Patient has been accepted by [facility] and precert submitted. Jacquie Michaud, Discharge Planning Asst.
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
[2023-03-31] MEDS: Acetaminophen 325 MG Tablet 650 MG PO (17:03)
[2023-03-31] MEDS: oxyCODONE 5 MG Tablet PO (19:43)
[2023-03-31] MEDS: Atorvastatin Calcium 40 MG Tablet PO (21:16)
[2023-03-31] MEDS: Metoprolol Tartrate 25 MG Tablet 12.5 MG PO (21:16)
[2023-03-31] MEDS: Mirtazapine 15 MG Tablet PO (21:17)
[2023-03-31] MEDS: Tamsulosin HCl 0.4 MG Capsule PO (21:17)
[2023-04-01] VITALS (7 sets, daily range): BP systolic 109–158; BP diastolic 50–84; PULSE 60–87; RESP 16; TEMP 36.6–36.9; O2SAT 92–94
[2023-04-01 05:45] LABS: Absolute Lymphocyte Count 0.97 X10^3/uL (0.83-4.51); Absolute Neutrophil Count 4.5 X10^3/uL (2.0-7.7); Basophil# 0.08 X10^3/uL; Basophil% 1.3 % (0-1); Eosinophils% 1.6 % (0-5); Hematocrit 40.7 % (40-54); Hemoglobin 13.7 g/dL (13.0-16.5); Lymphocyte # 0.97 X10^3/ul (0.83-4.51); Lymphocyte % 15.3 % (19-41); Mean Corp Hgb Conc 33.7 g/dL (32-36); Mean Corpuscular Hgb 32.5 pg (27.0-32.0); Mean Corpuscular Volume 96.7 fL (80-94); NRBC Flagged by Analyzer 0 % (0-5); Neutrophil # 4.46 X10^3/uL (2.7-7.7); Neutrophil % 70.2 % (47-70); Platelet Count 292 K/mm3 (150-450); RBC Distribution Width CV 14.1 % (11.6-14.6); RBC Distribution Width SD 49.7 fl (35.1-43.9); Red Blood Count 4.21 M/mm3 (4.6-6.2); White Blood Count 6.4 K/mm3 (4.4-11.0)
[2023-04-01] MEDS: Piperacil/Tazobactam 3.375 GM in 0.9% Normal Saline (50mL MB+) 50 ML IV ×3 (05:54→21:28)
[2023-04-01] MEDS: Acetaminophen 325 MG Tablet 650 MG PO ×2 (06:25→19:22)
[2023-04-01] MEDS: oxyCODONE 5 MG Tablet PO ×2 (06:25→19:23)
[2023-04-01 06:38] LABS: ALB/GLOB Ratio 0.7 RATIO (0.9-2.4); AST(SGOT) 12 U/L (15-37); Alanine Aminotransfer ALT/SGPT 21 U/L (16-61); Albumin, Serum 2.6 g/dL (3.2-5.0); Alkaline Phosphatase 57 U/L (45-117); Anion Gap 7 (5-15); BUN 21 mg/dL (7-18); BUN/Creat Ratio 15.6 RATIO (10-20); Calcium,Total 8.9 mg/dL (8.5-10.1); Chloride 107 mmol/L (98-107); Creatinine, Serum 1.35 mg/dL (0.70-1.30); EST Glomerular Filtration Rate 55 mL/min (>60); Est Glom Filt Rate - Afr Amer 67 mL/min (>60); Estimated Creatinine Clearance 43.43 ml/min; Globulin 3.9 g/dL (2.2-4.2); Glucose 107 mg/dL (74-106); Potassium 3.8 mmol/L (3.5-5.1); Protein, Total 6.5 g/dL (6.4-8.2); Sodium Level 141 mmol/L (136-145)
--- NOTE | 2023-04-01 07:51 | PN.HOSP_ITS ---
Reason for Visit Reason for Visit: Diagnoses Chronic respiratory failure with hypoxia (03/30/23) Acute cystitis without hematuria (03/30/23) Weakness (03/30/23) Objective Data Objective Data Vital Signs: Vital Signs Temp Pulse Resp BP Pulse Ox O2 Del Method O2 Flow Rate 98.5 F 73 16 153/84 H 93 Room Air 93 04/01/23 07:43 04/01/23 07:43 04/01/23 07:43 04/01/23 07:43 04/01/23 07:43 04/01/23 07:43 04/01/23 07:43 Oxygen Flow Rate (L/min) 93 Oxygen Delivery Method Room Air Weight: 63 kg Body Mass Index (BMI) 20.5 Intake & Output: Intake and Output for Last 24 Hours 03/30/23 03/31/23 04/01/23 23:59 23:59 23:59 Intake Total 600 / 700 400 / 400 800 / 800 Output Total 100 / 100 550 / 550 700 / 700 Balance 500 / 600 -150 / -150 100 / 100 Lab / Micro Data 04/01/23 05:14 04/01/23 05:14 Labs: Laboratory Results - last 24 hr 03/31/23 06:25: Sodium 139, Potassium 3.0 L, Chloride 101, Carbon Dioxide 28.0, Anion Gap 10, BUN 17, Creatinine 1.18, Estim Creat Clear Calc 50.79, Est GFR (MDRD) Af Amer 78, Est GFR (MDRD) Non-Af 64, BUN/Creatinine Ratio 14.4, Glucose 98, Calcium 8.8 04/01/23 05:14: WBC 6.4, RBC 4.21 L, Hgb 13.7, Hct 40.7, MCV 96.7 H, MCH 32.5 H, MCHC 33.7, RDW Std Deviation 49.7 H, RDW Coeff of Aly 14.1, Plt Count 292, MPV 10.0, Immature Gran % (Auto) 0.600, Neut % (Auto) 70.2 H, Lymph % (Auto) 15.3 L, [place] % (Auto) 11.0 H, Eos % (Auto) 1.6, Baso % (Auto) 1.3 H, Absolute Neuts (auto) 4.5, Absolute Lymphs (auto) 0.97, Nucleated RBC % 0, Sodium 141, Potassium 3.8, Chloride 107, Carbon Dioxide 27.0, Anion Gap 7, BUN 21 H, Crea tinine 1.35 H, Estim Creat Clear Calc 43.43, Est GFR (MDRD) Af Amer 67, Est GFR (MDRD) Non-Af 55 L, BUN/Creatinine Ratio 15.6, Glucose 107 H, Calcium 8.9, Total Bilirubin 0.30, AST 12 L, ALT 21, Alkaline Phosphatase 57, Total Protein 6.5, Albumin 2.6 L, Globulin 3.9, Albumin/Globulin Ratio 0.7 L Micro: Microbiology 03/30/23 17:04 Urine, Clean Catch Urine Culture - Preliminary Presumptive E. coli Physical Exam Narrative General: Alert, oriented, no apparent distress HEENT: Atraumatic, normocephalic Eyes: Anicteric, normal conjunctiva, extraocular movements grossly intact Neck: Supple Respiratory: Clear to auscultation bilaterally, normal respiratory effort Cardiovascular: Regular rate GI: Soft, nontender, nondistended Extremities: No edema Musculoskeletal: Moving all extremities Neuro: No overt focal neurological deficits Skin: Patient has scattered bruising Psych: Cooperative Assessment & Plan Assessment/Plan (1) UTI (urinary tract infection): QUALIFIERS: Hematuria presence: without hematuria Urinary tract infection type: acute cystitis Qualified Code(s): N30.00 - Acute cystitis without hematuria (2) Weakness: (3) Chronic respiratory failure with hypoxia: PLAN: Plan Patient is a 72-year-old gentleman admitted with multiple falls and progressive generalized weakness diagnosed with acute cystitis admitted to regular nursing floor 1. Acute cystitis ? Urine culture so far positive for E. coli final identification and sensitivities pending 2. Physical deconditioning with multiple falls - Requested for PT OT eval and social worker assistant to assist with discharge planning 3. Chronic hypoxic respiratory failure ? Secondary to COPD. Patient is on baseline home oxygen 2 L at rest 4. Acute hypertensive emergency ? Resolved 5. GERD ? On PPI 6.Tobacco abuse -Counseled; -Nicotine patch prescribed. 7. Paroxysmal A-fib -Metoprolol continued. Not on anticoagulation which I agree with if patient has multiple falls. 8. History of CVA -Stable, Plavix and statins continued. 9. BPH -on home tamsulosin and finasteride 10. DVT prophylaxis ? SC Lovenox Time spent in the patient's overall evaluation,decision-making process, review of diagnostic data, adjustment of management, discussion with other providers, nursing nursing and ancillary staff involved in patient's care documentation, 36 minutes. Charges/Coding Visit Charges Inpatient E&M: 77069 Subs Hosp L2
[2023-04-01] MEDS: Ferrous Sulfate 325 MG Tablet PO ×2 (07:55→16:31)
[2023-04-01] MEDS: carBAMazepine 200 MG Tablet PO ×2 (07:55→19:17)
[2023-04-01] MEDS: Losartan Potassium 25 MG Tablet 75 MG PO (10:30)
[2023-04-01] MEDS: Metoprolol Tartrate 25 MG Tablet 12.5 MG PO ×2 (10:31→19:18)
[2023-04-01] MEDS: Clopidogrel Bisulfate 75 MG Tablet PO (10:36)
[2023-04-01] MEDS: Finasteride 5 MG Tablet PO (10:36)
[2023-04-01] MEDS: NIFEdipine 90 MG Tablet PO (10:36)
[2023-04-01] MEDS: Pantoprazole Sodium 40 MG Tablet PO (10:37)
[2023-04-01] MEDS: Sertraline 100 MG Tablet PO (10:37)
[2023-04-01] MEDS: Tamsulosin HCl 0.4 MG Capsule PO (19:17)
[2023-04-01] MEDS: Atorvastatin Calcium 40 MG Tablet PO (19:18)
[2023-04-01] MEDS: Mirtazapine 15 MG Tablet PO (19:19)
--- NOTE | 2023-04-01 20:51 | NURSING ---
pt had visitor in room and visitor gave pt a cigarette. pt insisted that he was going to go and smoke the cigarette. told pt arias can't smoke in here, and he could not go outside to smoke. told visitor to take cigarette home with him. visitor took cigarette and pt returned to bed.
[2023-04-01] MEDS: MELATONIN 3 MG TABLET PO (21:52)
[2023-04-02] VITALS (9 sets, daily range): BP systolic 143–181; BP diastolic 62–82; PULSE 60–80; RESP 14–16; TEMP 36.3–36.9; O2SAT 92–96
[2023-04-02] MEDS: Acetaminophen 325 MG Tablet 650 MG PO (05:18)
[2023-04-02] MEDS: oxyCODONE 5 MG Tablet PO (05:19)
[2023-04-02] MEDS: Piperacil/Tazobactam 3.375 GM in 0.9% Normal Saline (50mL MB+) 50 ML IV (05:20)
[2023-04-02 06:02] LABS: Absolute Lymphocyte Count 1.01 X10^3/uL (0.83-4.51); Absolute Neutrophil Count 2.5 X10^3/uL (2.0-7.7); Basophil# 0.06 X10^3/uL; Basophil% 1.4 % (0-1); Eosinophil# 0.19 X10^3/uL; Eosinophils% 4.4 % (0-5); Hematocrit 38.8 % (40-54); Hemoglobin 12.7 g/dL (13.0-16.5); Lymphocyte # 1.01 X10^3/ul (0.83-4.51); Lymphocyte % 23.5 % (19-41); Mean Corp Hgb Conc 32.7 g/dL (32-36); Mean Corpuscular Hgb 32.1 pg (27.0-32.0); Mean Platelet Vol. 9.8 fl (6.2-12.0); Monocyte# 0.48 X10^3/uL; Monocyte% 11.2 % (0-10); NRBC Flagged by Analyzer 0 % (0-5); Neutrophil # 2.51 X10^3/uL (2.7-7.7); Neutrophil % 58.6 % (47-70); Platelet Count 302 K/mm3 (150-450); RBC Distribution Width CV 13.9 % (11.6-14.6); RBC Distribution Width SD 50.4 fl (35.1-43.9); Red Blood Count 3.96 M/mm3 (4.6-6.2); White Blood Count 4.3 K/mm3 (4.4-11.0)
--- NOTE | 2023-04-02 06:52 | PCM.PN.BLA ---
Progress Note Urine culture returned positive for ESBL E. coli. E. coli is however sensitive to Zosyn in vitro. Cannot be certain whether E. coli will be sensitive in vivo. Zosyn discontinued. Started on Merrem, adjusted for creatinine clearance.
[2023-04-02 06:54] LABS: Anion Gap 6 (5-15); BUN 20 mg/dL (7-18); BUN/Creat Ratio 16.3 RATIO (10-20); Calcium,Total 8.8 mg/dL (8.5-10.1); Chloride 107 mmol/L (98-107); Creatinine, Serum 1.23 mg/dL (0.70-1.30); EST Glomerular Filtration Rate 61 mL/min (>60); Est Glom Filt Rate - Afr Amer 74 mL/min (>60); Estimated Creatinine Clearance 47.66 ml/min; Glucose 91 mg/dL (74-106); Phosphorus 2.6 mg/dL (2.5-4.9); Potassium 3.7 mmol/L (3.5-5.1); Sodium Level 140 mmol/L (136-145)
[2023-04-02] MEDS: Albuterol 2.5 MG/3 ML VIAL.NEB. INHALATION ×2 (07:05→19:47)
[2023-04-02] MEDS: Meropenem 1 GM in 0.9% Normal Saline (100mL MB+) 100 ML IV (07:24)
--- NOTE | 2023-04-02 07:35 | PN.HOSP_ITS ---
Reason for Visit Reason for Visit: Diagnoses Chronic respiratory failure with hypoxia (03/30/23) Acute cystitis without hematuria (03/30/23) Weakness (03/30/23) Subjective Subjective Patient urine cultures came back positive for ESBL positive E. coli patient was on ceftriaxone discontinued placed on meropenem Objective Data Objective Data Vital Signs: Vital Signs Temp Pulse Resp BP Pulse Ox O2 Del Method O2 Flow Rate 97.6 F L 60 14 143/68 H 93 Nasal Cannula 2 04/02/23 02:45 04/02/23 07:08 04/02/23 07:08 04/02/23 02:45 04/02/23 07:08 04/02/23 07:08 04/02/23 07:08 Oxygen Flow Rate (L/min) 2 Oxygen Delivery Method Nasal Cannula Weight: 63 kg Body Mass Index (BMI) 20.5 Intake & Output: Intake and Output for Last 24 Hours 03/31/23 04/01/23 04/02/23 23:59 23:59 23:59 Intake Total 400 / 400 1150 / 1150 176.46 / 176.46 Output Total 550 / 550 950 / 950 Balance -150 / -150 200 / 200 176.46 / 176.46 Lab / Micro Data 04/02/23 05:07 04/02/23 05:07 Labs: Laboratory Results - last 24 hr 04/02/23 05:07: WBC 4.3 L, RBC 3.96 L, Hgb 12.7 L, Hct 38.8 L, MCV 98.0 H, MCH 32.1 H, MCHC 32.7, RDW Std Deviation 50.4 H, RDW Coeff of Aly 13.9, Plt Count 302, MPV 9.8, Immature Gran % (Auto) 0.900, Neut % (Auto) 58.6, Lymph % (Auto) 23.5, [place] % (Auto) 11.2 H, Eos % (Auto) 4.4, Baso % (Auto) 1.4 H, Absolute Neuts (auto) 2.5, Absolute Lymphs (auto) 1.01, Nucleated RBC % 0, Sodium 140, Potassium 3.7, Chloride 107, Carbon Dioxide 27.0, Anion Gap 6, BUN 20 H, Creatinine 1.23, Estim Creat Clear Calc 47.66, Est GFR (MDRD) Af Amer 74, Est GFR (MDRD) Non-Af 61, BUN/Creatinine Ratio 16.3, Glucose 91, Calcium 8.8, Phos phorus 2.6, Magnesium 2.0 Micro: Microbiology 03/30/23 17:04 Urine, Clean Catch Urine Culture - Preliminary ESBL Escherichia coli Physical Exam Narrative General: Alert, oriented, no apparent distress HEENT: Atraumatic, normocephalic Eyes: Anicteric, normal conjunctiva, extraocular movements grossly intact Neck: Supple Respiratory: Clear to auscultation bilaterally, normal respiratory effort Cardiovascular: Regular rate GI: Soft, nontender, nondistended Extremities: No edema Musculoskeletal: Moving all extremities Neuro: No overt focal neurological deficits Skin: Patient has scattered bruising Psych: Cooperative Assessment & Plan Assessment/Plan (1) UTI (urinary tract infection): QUALIFIERS: Hematuria presence: without hematuria Urinary tract infection type: acute cystitis Qualified Code(s): N30.00 - Acute cystitis without hematuria (2) Weakness: (3) Chronic respiratory failure with hypoxia: PLAN: Plan Patient is a 72-year-old gentleman admitted with multiple falls and progressive generalized weakness diagnosed with acute cystitis admitted to regular nursing floor 1. Acute cystitis ? Urine culture so far positive for E. coli final identification and sensitivities pending ? 04/02/2023; Patient urine cultures came back positive for ESBL positive E. coli patient was on ceftriaxone discontinued placed on meropenem 2. Physical deconditioning with multiple falls - Requested for PT OT eval and older adult social work specialist to assist with discharge planning 3. Chronic hypoxic respiratory failure ? Secondary to COPD. Patient is on baseline home oxygen 2 L at rest 4. Acute hypertensive emergency ? Resolved 5. GERD ? On PPI 6.Tobacco abuse -Counseled; -Nicotine patch prescribed. 7. Paroxysmal A-fib -Metoprolol continued. Not on anticoagulation which I agree with if patient has multiple falls. 8. History of CVA -Stable, Plavix and statins continued. 9. BPH -on home tamsulosin and finasteride 10. DVT prophylaxis ? SC Lovenox Time spent in the patient's overall evaluation,decision-making process, review of diagnostic data, adjustment of management, discussion with other providers, nursing nursing and ancillary staff involved in patient's care documentation, 36 minutes.
[2023-04-02] MEDS: carBAMazepine 200 MG Tablet PO ×2 (08:52→20:23)
[2023-04-02] MEDS: Ferrous Sulfate 325 MG Tablet PO ×2 (08:52→16:06)
[2023-04-02] MEDS: Metoprolol Tartrate 25 MG Tablet 12.5 MG PO ×2 (08:53→20:22)
[2023-04-02] MEDS: Losartan Potassium 25 MG Tablet 75 MG PO (08:53)
[2023-04-02] MEDS: Clopidogrel Bisulfate 75 MG Tablet PO (08:55)
[2023-04-02] MEDS: Sertraline 100 MG Tablet PO (08:56)
[2023-04-02] MEDS: Finasteride 5 MG Tablet PO (08:56)
[2023-04-02] MEDS: NIFEdipine 90 MG Tablet PO (08:57)
[2023-04-02] MEDS: Pantoprazole Sodium 40 MG Tablet PO (08:57)
[2023-04-02] MEDS: Atorvastatin Calcium 40 MG Tablet PO (20:23)
[2023-04-02] MEDS: Tamsulosin HCl 0.4 MG Capsule PO (20:24)
[2023-04-02] MEDS: Mirtazapine 15 MG Tablet PO (20:24)
[2023-04-02] MEDS: Meropenem 500 MG in 0.9% Normal Saline (50mL MB+) 50 ML 100 MG IV (21:09)
[2023-04-03] VITALS (13 sets, daily range): BP systolic 133–180; BP diastolic 65–90; PULSE 40–100; RESP 16–17; TEMP 36.4–37; O2SAT 88–95
[2023-04-03] MEDS: hydrALAZINE 20 MG/ML Vial 5 MG IV ×2 (05:06→23:01)
[2023-04-03 06:50] LABS: Absolute Lymphocyte Count 1.22 X10^3/uL (0.83-4.51); Absolute Neutrophil Count 3.5 X10^3/uL (2.0-7.7); Basophil# 0.08 X10^3/uL; Basophil% 1.5 % (0-1); Eosinophil# 0.21 X10^3/uL; Eosinophils% 3.9 % (0-5); Hematocrit 40.8 % (40-54); Hemoglobin 13.6 g/dL (13.0-16.5); Lymphocyte # 1.22 X10^3/ul (0.83-4.51); Lymphocyte % 22.5 % (19-41); Mean Corp Hgb Conc 33.3 g/dL (32-36); Mean Corpuscular Hgb 32.2 pg (27.0-32.0); Mean Corpuscular Volume 96.5 fL (80-94); Mean Platelet Vol. 9.7 fl (6.2-12.0); Monocyte# 0.41 X10^3/uL; Monocyte% 7.6 % (0-10); NRBC Flagged by Analyzer 0 % (0-5); Neutrophil # 3.46 X10^3/uL (2.7-7.7); Neutrophil % 63.8 % (47-70); Platelet Count 357 K/mm3 (150-450); RBC Distribution Width CV 13.6 % (11.6-14.6); RBC Distribution Width SD 48.4 fl (35.1-43.9); Red Blood Count 4.23 M/mm3 (4.6-6.2); White Blood Count 5.4 K/mm3 (4.4-11.0)
[2023-04-03 07:21] LABS: Anion Gap 6 (5-15); BUN 21 mg/dL (7-18); BUN/Creat Ratio 17.5 RATIO (10-20); Calcium,Total 9.3 mg/dL (8.5-10.1); Chloride 104 mmol/L (98-107); EST Glomerular Filtration Rate 63 mL/min (>60); Est Glom Filt Rate - Afr Amer 76 mL/min (>60); Estimated Creatinine Clearance 48.85 ml/min; Glucose 92 mg/dL (74-106); Potassium 3.6 mmol/L (3.5-5.1); Sodium Level 138 mmol/L (136-145)
--- NOTE | 2023-04-03 08:01 | EKG12_ITS ---
Test Reason : AMALIA Blood Pressure : / mmHG Vent. Rate : 077 BPM Atrial Rate : 077 BPM P-R Int : 190 ms QRS Dur : 088 ms QT Int : 386 ms P-R-T Axes : 022 062 084 degrees QTc Int : 436 ms Sinus rhythm with Premature atrial complexes Minimal voltage criteria for LVH, may be normal variant ( Sokolow-Khan ) Septal infarct , age undetermined Abnormal ECG When compared with ECG of 30-MAR-2023 15:54, MANUAL COMPARISON REQUIRED, DATA IS UNCONFIRMED Confirmed by DIMAS RANDALL, NATE ([id number]), writer editor ETHAN DAIGLE ([id number]) on 04/06/2023 1:24:33 PM Referred By: FARSHAD Confirmed By:NATE COCHRAN MD
[2023-04-03] MEDS: Losartan Potassium 25 MG Tablet 75 MG PO (08:25)
[2023-04-03] MEDS: Metoprolol Tartrate 25 MG Tablet 12.5 MG PO ×2 (08:25→21:23)
[2023-04-03] MEDS: Ferrous Sulfate 325 MG Tablet PO ×2 (08:25→16:11)
[2023-04-03] MEDS: Finasteride 5 MG Tablet PO (08:26)
[2023-04-03] MEDS: Sertraline 100 MG Tablet PO (08:27)
[2023-04-03] MEDS: carBAMazepine 200 MG Tablet PO ×2 (08:27→21:18)
[2023-04-03] MEDS: NIFEdipine 90 MG Tablet PO (08:27)
[2023-04-03] MEDS: Clopidogrel Bisulfate 75 MG Tablet PO (08:27)
[2023-04-03] MEDS: Pantoprazole Sodium 40 MG Tablet PO (08:27)
[2023-04-03] MEDS: Meropenem 500 MG in 0.9% Normal Saline (50mL MB+) 50 ML 100 MG IV (09:24)
[2023-04-03] MEDS: oxyCODONE 5 MG Tablet PO (09:24)
[2023-04-03] MEDS: Acetaminophen 325 MG Tablet 650 MG PO (09:25)
--- NOTE | 2023-04-03 09:26 | CASEMGMT ---
Addendum entered by Sharmaine Leal 04/03/23 15:49: Social Work Infectious Disease stated to write order for IV abx. Sw informed [facility] via [facility] of this update. Sw will continue to follow. Sharmaine Leal, AIRPORT ELECTRICIAN, WOOD FLOOR REFINISHER Original Note: Social Work CC asked for updates on antibiotics. As per Dr. Galindo, pt may go to SNF on IV Invanz, 1 gm 1 time per day through a peripheral line. However he did consult infectious disease so this may change. SW relayed this information to [facility] via [facility]. SW will continue to follow. EVELIN Garcia
[2023-04-03] MEDS: 0.9% Saline Lock 10 ML Syringe IV ×2 (09:29→23:01)
--- NOTE | 2023-04-03 10:46 | PCM.PN.HOSP ---
Reason for Visit Reason for Visit: Diagnoses Chronic respiratory failure with hypoxia (03/30/23) Acute cystitis without hematuria (03/30/23) Weakness (03/30/23) Subjective Subjective Complains of feeling weak Objective Data Objective Data Vital Signs: Vital Signs Temp Pulse Resp BP Pulse Ox O2 Del Method O2 Flow Rate 97.6 F L 76 16 156/74 H 88 Room Air 2 04/03/23 09:33 04/03/23 09:33 04/03/23 09:33 04/03/23 09:33 04/03/23 09:34 04/03/23 09:34 04/03/23 09:33 Oxygen Flow Rate (L/min) 2 Oxygen Delivery Method Room Air Weight: 63 kg Body Mass Index (BMI) 20.5 Intake & Output: Intake and Output for Last 24 Hours 04/01/23 04/02/23 04/03/23 23:59 23:59 23:59 Intake Total 1150 / 1150 356.46 / 481.46 185 / 185 Output Total 950 / 950 Balance 200 / 200 356.46 / 481.46 185 / 185 Lab / Micro Data 04/03/23 05:30 04/03/23 05:30 Labs: Laboratory Results - last 24 hr 04/03/23 05:30: WBC 5.4, RBC 4.23 L, Hgb 13.6, Hct 40.8, MCV 96.5 H, MCH 32.2 H, MCHC 33.3, RDW Std Deviation 48.4 H, RDW Coeff of Aly 13.6, Plt Count 357, MPV 9.7, Immature Gran % (Auto) 0.700, Neut % (Auto) 63.8, Lymph % (Auto) 22.5, [place] % (Auto) 7.6, Eos % (Auto) 3.9, Baso % (Auto) 1.5 H, Absolute Neuts (auto) 3.5, Absolute Lymphs (auto) 1.22, Nucleated RBC % 0, Sodium 138, Potassium 3.6, Chloride 104, Carbon Dioxide 28.0, Anion Gap 6, BUN 21 H, Creatinine 1.20, Estim Creat Clear Calc 48.85, Est GFR (MDRD) Af Amer 76, Est GFR (MDRD) Non-Af 63, BUN/Creatinine Ratio 17.5, Glucose 92, Calcium 9.3 Micro: Microbiology 03/30/23 17:04 Urine, Clean Catch Urine Culture - Final ESBL Escherichia coli 03/30/23 20:00 Blood Culture (Wb) - Anticubital Right Blood Culture - Preliminary No growth in 48 hours. 03/30/23 20:18 Blood Culture (Wb) - Anticubital Right Blood Culture - Preliminary No growth in 48 hours. Physical Exam Narrative General: Alert, oriented, no apparent distress HEENT: Atraumatic, normocephalic Eyes: Anicteric, normal conjunctiva, extraocular movements grossly intact Neck: Supple Respiratory: Clear to auscultation bilaterally, normal respiratory effort Cardiovascular: Regular rate GI: Soft, nontender, nondistended Extremities: No edema Musculoskeletal: Moving all extremities Neuro: No overt focal neurological deficits Skin: Patient has scattered bruising Psych: Cooperative Assessment & Plan Assessment/Plan (1) UTI (urinary tract infection): QUALIFIERS: Urinary tract infection type: acute cystitis Hematuria presence: without hematuria Qualified Code(s): N30.00 - Acute cystitis without hematuria (2) Weakness: (3) Chronic respiratory failure with hypoxia: PLAN: Plan Patient is a 72-year-old gentleman admitted with multiple falls and progressive generalized weakness diagnosed with acute cystitis admitted to regular nursing floor 1. Acute cystitis ? Urine culture so far positive for E. coli final identification and sensitivities pending ? 04/02/2023; Patient urine cultures came back positive for ESBL positive E. coli patient was on ceftriaxone discontinued placed on meropenem - 04/03/2023; Consulted ID for dc abx 2. Physical deconditioning with multiple falls - Requested for PT OT eval and social science research assistant to assist with discharge planning 3. Chronic hypoxic respiratory failure ? Secondary to COPD. Patient is on baseline home oxygen 2 L at rest 4. Acute hypertensive emergency ? Resolved 5. GERD ? On PPI 6.Tobacco abuse -Counseled; -Nicotine patch prescribed. 7. Paroxysmal A-fib -Metoprolol continued. Not on anticoagulation which I agree with if patient has multiple falls. 8. History of CVA -Stable, Plavix and statins continued. 9. BPH -on home tamsulosin and finasteride 10. DVT prophylaxis ? [place] Lovenox Time spent in the patient's overall evaluation,decision-making process, review of diagnostic data, adjustment of management, discussion with other providers, nursing nursing and ancillary staff involved in patient's care documentation, 36 minutes. Charges/Coding Visit Charges Inpatient E&M: 17551 Subs Hosp L2
[2023-04-03] MEDS: Ertapenem Sod 1 GM in 0.9% Normal Saline (50mL MB+) 50 ML IV (16:08)
--- NOTE | 2023-04-03 17:03 | CON.PCM.ID_ITS ---
Assessment & Plan Assessment/Plan (1) Acute UTI: PLAN: esbl ecoli uti - on meropenem. Will order midline and 7 more days ertapenem with weekly labs. boo Herron HPI Consult Data Date of Consult: 04/03/23 HPI Narrative Reason for Consultation: uti HPI Narrative: PEDRO PABLO SIERRA, is a 72 M who presented with several days weakness, falls, dysuria, fatigue. Admitted on ceftriaxone, now on meropenem. Dysuria improved, no fever here. No abd pain. Full ROS performed and neg except as noted above. [facility] Medical History Asthma Atrial fibrillation Chronic pain COPD (chronic obstructive pulmonary disease) COPD (chronic obstructive pulmonary disease) Depression Diabetes Falls frequently High cholesterol Hypertension Irregular heart beat Kidney stones On home oxygen therapy Pancreatitis Seizures Sleep apnea Smoker Stroke/cerebrovascular accident Home Medications tamsulosin 0.4 mg capsule 0.4 mg PO QHS bph 01/26/14 [History Last Taken 03/28/23] finasteride 5 mg tablet 5 mg PO DAILY prostate 11/14/14 [History Last Taken 03/28/23] atorvastatin 40 mg tablet 40 mg PO QHS Cholesterol 09/23/15 [History Last Taken 03/28/23] sertraline 50 mg tablet 100 mg PO DAILY mood stabilizer 12/02/15 [History Last Taken 03/28/23] mirtazapine 15 mg tablet 15 mg PO QHS anti depressant 08/16/19 [History Last Taken 03/28/23] clopidogrel 75 mg tablet 75 mg PO DAILY blood thinner 10/25/19 [History Last Tra en 03/28/23] carbamazepine 200 mg tablet 200 mg PO Q12H Check with primary doctor 10/26/19 [History Last Taken 03/28/23] losartan 100 mg tablet 100 mg PO DAILY Blood pressure 08/19/21 [History Last Ta kiana 03/28/23] pantoprazole 40 mg tablet,delayed release 40 mg PO DAILY GERD 08/19/21 [History Last Taken 03/28/23] nifedipine 90 mg tablet,extended release 90 mg PO DAILY 11/25/21 [History Last Taken 03/28/23] acetaminophen 325 mg tablet (Tylenol) 650 mg (2 x 325 mg) PO Q6H PRN PRN Pain 1- 10 Or Fever #0 tabs 11/30/21 [Rx Last Taken 03/28/23] alendronate 70 mg tablet 70 mg PO QWEEK #1 TAB 11/30/21 [Rx Last Taken 03/28/23] ferrous sulfate 325 mg (65 mg iron) tablet (FeroSul) 325 mg PO BID #1 TAB 0 11/30/21 [Rx Last Taken 03/28/23] nicotine 21 mg/24 hr daily transdermal patch 21 mg transdermal DAILY #0 ea 11/30/21 [Rx Last Taken 03/28/23] hydrocodone-acetaminophen 5-325mg 5mg-325mg 1 tab PO Q6H PRN PRN Pain 3 days #10 TABLETS 02/25/23 [Rx Last Taken 03/28/23] albuterol sulfate 90 mcg/actuation aerosol inhaler 1 puff inhalation Q8H 03/30/23 [History Last Taken 03/28/23] metoprolol tartrate 25 mg tablet 25 mg PO DAILY 03/30/23 [History Last Taken 03/28/23] ertapenem 1 gram solution for injection 1 g IV Q24 7 days #7 ea 04/03/23 [Rx Last Taken Unknown] Allergy/AdvReac Type Severity Reaction Status Date / Time No Known Allergies Allergy Verified 03/30/23 14:14 Family History Other Heart disease Surgical History History of appendectomy S/P arterial stent Social History household members: none Smoking Status: Current every day smoker tobacco type: cigarettes alcohol intake: former details: Former alcoholic Physical Exam Const alert and no apparent distress General Appearance: cooperative HEENT normocephalic and head/scalp atraumatic Eyes PERRL and EOMs intact bilaterally Neck supple and No nodes Resp normal air movement and clear to auscultation bilaterally Cardio regular rate and regular rhythm GI soft to palpation, non-tender and non-distended Skin no rashes or lesions noted Neuro CN's II-XII intact bilaterally Lab / Micro Data Attestation: I reviewed the patient's lab results. 04/03/23 05:30 10/16/23 05:30 Labs: Laboratory Results - last 24 hr 04/03/23 05:30: WBC 5.4, RBC 4.23 L, Hgb 13.6, Hct 40.8, MCV 96.5 H, MCH 32.2 H, MCHC 33.3, RDW Std Deviation 48.4 H, RDW Coeff of Aly 13.6, Plt Count 357, MPV 9.7, Immature Gran % (Auto) 0.700, Neut % (Auto) 63.8, Lymph % (Auto) 22.5, [place] % (Auto) 7.6, Eos % (Auto) 3.9, Baso % (Auto) 1.5 H, Absolute Neuts (auto) 3.5, Absolute Lymphs (auto) 1.22, Nucleated RBC % 0, Sodium 138, Potassium 3.6, Chloride 104, Carbon Dioxide 28.0, Anion Gap 6, BUN 21 H, Creatinine 1.20, Estim Creat Clear Calc 48.85, Est GFR (MDRD) Af Amer 76, Est GFR (MDRD) Non-Af 63, BUN/Creatinine Ratio 17.5, Glucose 92, Calcium 9.3 Micro: Microbiology 03/30/23 17:04 Urine, Clean Catch Urine Culture - Final ESBL Escherichia coli
[2023-04-03] MEDS: Mirtazapine 15 MG Tablet PO (21:23)
[2023-04-03] MEDS: Tamsulosin HCl 0.4 MG Capsule PO (21:23)
[2023-04-03] MEDS: Atorvastatin Calcium 40 MG Tablet PO (21:23)
[2023-04-04] VITALS (7 sets, daily range): BP systolic 183–188; BP diastolic 79–83; PULSE 44–74; RESP 16–18; TEMP 36.4–36.6; O2SAT 92–95
[2023-04-04] MEDS: Alendronate Sodium 70 MG Tablet PO (05:00)
[2023-04-04] MEDS: hydrALAZINE 20 MG/ML Vial 5 MG IV ×2 (05:07→11:37)
[2023-04-04 06:21] LABS: Absolute Lymphocyte Count 1.49 X10^3/uL (0.83-4.51); Absolute Neutrophil Count 4.1 X10^3/uL (2.0-7.7); Basophil# 0.07 X10^3/uL; Basophil% 1.1 % (0-1); Eosinophil# 0.21 X10^3/uL; Eosinophils% 3.3 % (0-5); Hematocrit 46.6 % (40-54); Hemoglobin 15.1 g/dL (13.0-16.5); Lymphocyte # 1.49 X10^3/ul (0.83-4.51); Lymphocyte % 23.6 % (19-41); Mean Corp Hgb Conc 32.4 g/dL (32-36); Mean Corpuscular Hgb 31.3 pg (27.0-32.0); Mean Corpuscular Volume 96.7 fL (80-94); Mean Platelet Vol. 9.3 fl (6.2-12.0); Monocyte% 6.3 % (0-10); NRBC Flagged by Analyzer 0 % (0-5); Neutrophil # 4.07 X10^3/uL (2.7-7.7); Neutrophil % 64.4 % (47-70); Platelet Count 379 K/mm3 (150-450); RBC Distribution Width CV 13.6 % (11.6-14.6); RBC Distribution Width SD 48.9 fl (35.1-43.9); Red Blood Count 4.82 M/mm3 (4.6-6.2); White Blood Count 6.3 K/mm3 (4.4-11.0)
[2023-04-04 06:57] LABS: Anion Gap 4 (5-15); BUN 26 mg/dL (7-18); BUN/Creat Ratio 20.3 RATIO (10-20); Calcium,Total 9.7 mg/dL (8.5-10.1); Chloride 103 mmol/L (98-107); Creatinine, Serum 1.28 mg/dL (0.70-1.30); EST Glomerular Filtration Rate 58 mL/min (>60); Est Glom Filt Rate - Afr Amer 71 mL/min (>60); Glucose 101 mg/dL (74-106); Potassium 3.9 mmol/L (3.5-5.1); Sodium Level 136 mmol/L (136-145)
--- NOTE | 2023-04-04 07:31 | PN.HOSP_ITS ---
Reason for Visit Reason for Visit: Diagnoses Chronic respiratory failure with hypoxia (03/30/23) Acute cystitis without hematuria (03/30/23) Urinary tract infection, site not specified (03/30/23) Weakness (03/30/23) Subjective Subjective Patient was seen in consultation by infectious disease antibiotics for discharge recommended. We will proceed to arrange for discharge Objective Data Objective Data Vital Signs: Vital Signs Temp Pulse Resp BP Pulse Ox O2 Del Method O2 Flow Rate 97.8 F 74 16 183/83 H 95 Room Air 2 04/04/23 05:13 04/04/23 05:13 04/04/23 05:13 04/04/23 05:13 04/04/23 06:59 04/04/23 06:59 04/03/23 15:53 Oxygen Flow Rate (L/min) 2 Oxygen Delivery Method Room Air Weight: 63 kg Body Mass Index (BMI) 20.5 Intake & Output: Intake and Output for Last 24 Hours 04/02/23 04/03/23 04/04/23 23:59 23:59 23:59 Intake Total 356.46 / 481.46 645 / 945 500 / 500 Balance 356.46 / 481.46 645 / 945 500 / 500 Lab / Micro Data 04/04/23 06:05 04/04/23 06:05 Labs: Laboratory Results - last 24 hr 04/04/23 06:05: WBC 6.3, RBC 4.82, Hgb 15.1, Hct 46.6, MCV 96.7 H, MCH 31.3, MCHC 32.4, RDW Std Deviation 48.9 H, RDW Coeff of Aly 13.6, Plt Count 379, MPV 9.3, Immature Gran % (Auto) 1.300 H, Neut % (Auto) 64.4, Lymph % (Auto) 23.6, [place] % (Auto) 6.3, Eos % (Auto) 3.3, Baso % (Auto) 1.1 H, Absolute Neuts (auto) 4.1, Absolute Lymphs (auto) 1.49, Nucleated RBC % 0, Sodium 136, Potassium 3.9, Chloride 103, Carbon Dioxide 29.0, Anion Gap 4 L, BUN 26 H, Creatinine 1.28, Estim Creat Clear Calc 45.80, Est GFR (MDRD) Af Amer 71, Est GFR (MDRD) Non-Af 58 L, BUN/Creatinine Ratio 20.3 H, Glucose 101, Calcium 9.7 Micro: Microbiology 03/30/23 17:04 Urine, Clean Catch Urine Culture - Final ESBL Escherichia coli 03/30/23 20:00 Blood Culture (Wb) - Anticubital Right Blood Culture - Preliminary No growth in 48 hours. 03/30/23 20:18 Blood Culture (Wb) - Anticubital Right Blood Culture - Preliminary No growth in 48 hours. Physical Exam Narrative General: Alert, oriented, no apparent distress HEENT: Atraumatic, normocephalic Eyes: Anicteric, normal conjunctiva, extraocular movements grossly intact Neck: Supple Respiratory: Clear to auscultation bilaterally, normal respiratory effort Cardiovascular: Regular rate GI: Soft, nontender, nondistended Extremities: No edema Musculoskeletal: Moving all extremities Neuro: No overt focal neurological deficits Skin: Patient has scattered bruising Psych: Cooperative Assessment & Plan Assessment/Plan (1) UTI (urinary tract infection): QUALIFIERS: Hematuria presence: without hematuria Urinary tract infection type: acute cystitis Qualified Code(s): N30.00 - Acute cystitis without hematuria (2) Weakness: (3) Chronic respiratory failure with hypoxia: PLAN: Plan Patient is a 72-year-old gentleman admitted with multiple falls and progressive generalized weakness diagnosed with acute cystitis admitted to regular nursing floor 1. Acute cystitis ? Urine culture so far positive for E. coli final identification and sensitivities pending ? 04/02/2023; Patient urine cultures came back positive for ESBL positive E. coli patient was on ceftriaxone discontinued placed on meropenem - 04/03/2023; Consulted ID for dc abx -04/04/2023 patient to be discharged with Ertapemen for 7 days 2. Physical deconditioning with multiple falls - Requested for PT OT eval and social service technician to assist with discharge planning 3. Chronic hypoxic respiratory failure ? Secondary to COPD. Patient is on baseline home oxygen 2 L at rest 4. Acute hypertensive emergency ? Resolved 5. GERD ? On PPI 6.Tobacco abuse -Counseled; -Nicotine patch prescribed. 7. Paroxysmal A-fib -Metoprolol continued. Not on anticoagulation which I agree with if patient has multiple falls. 8. History of CVA -Stable, Plavix and statins continued. 9. BPH -on home tamsulosin and finasteride 10. DVT prophylaxis ? [place] Lovenox Time spent in the patient's overall evaluation,decision-making process, review of diagnostic data, adjustment of management, discussion with other providers, nursing nursing and ancillary staff involved in patient's care documentation, 36 minutes. Charges/Coding Visit Charges Inpatient E&M: 20373 Subs Hosp L2
--- NOTE | 2023-04-04 09:02 | CASEMGMT ---
Discharge Planning [facility] has obtained auth. SW updated. Jacquei Michaud, Discharge Planning Asst.
--- NOTE | 2023-04-04 09:21 | TREXTCAR_ITS ---
Diet Diet Order/Speech Therapy: 03/31/23 10:08 Diet: Regular - General Type of Dietary Supplement:: Ensure Compact Is pt able to select menu?: Yes Diet Comments: chocolate ensure compact tid w/ meals Wound(s) generalized: Wound Type: scabbed areas throughout Therapies Physical Therapy: Eval and Treat Occupational Therapy: Eval and Treat Problem/Diagnosis (1) UTI (urinary tract infection): Status: Acute Code(s): N39.0 - Urinary tract infection, site not specified (2) Weakness: Status: Acute Code(s): R53.1 - Weakness (3) Chronic respiratory failure with hypoxia: Status: Chronic Code(s): J96.11 - Chronic respiratory failure with hypoxia Comment: Due to COPD Plan Patient is a 72-year-old gentleman admitted with multiple falls and progressive generalized weakness diagnosed with acute cystitis admitted to regular nursing floor 1. Acute cystitis ? Urine culture so far positive for E. coli final identification and sensitivities pending ? 04/02/2023; Patient urine cultures came back positive for ESBL positive E. coli patient was on ceftriaxone discontinued placed on meropenem - 04/03/2023; Consulted ID for dc abx -04/04/2023 patient to be discharged with Ertapemen for 7 days 2. Physical deconditioning with multiple falls - Requested for PT OT eval and manager social responsibility to assist with discharge planning 3. Chronic hypoxic respiratory failure ? Secondary to COPD. Patient is on baseline home oxygen 2 L at rest 4. Acute hypertensive emergency ? Resolved 5. GERD ? On PPI 6.Tobacco abuse -Counseled; -Nicotine patch prescribed. 7. Paroxysmal A-fib -Metoprolol continued. Not on anticoagulation which I agree with if patient has multiple falls. 8. History of CVA -Stable, Plavix and statins continued. 9. BPH -on home tamsulosin and finasteride 10. DVT prophylaxis ? SC Lovenox Time spent in the patient's overall evaluation,decision-making process, review of diagnostic data, adjustment of management, discussion with other providers, nursing nursing and ancillary staff involved in patient's care documentation, 36 minutes. 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 Will provide chocolate ensure compact tid w/ meals for increased nutrition if consumed. Discharge Plan Admission Admit Date/Time: 03/30/23 19:21 Attending Provider: Frankie Galindo Primary Care Provider: Daija Douglas Consulting Providers: Fran Cartwright; Celia Toribio; Rodrigo Moore Discharge Orders/Prescriptions Prescriptions: New ertapenem 1 gram Recon Soln 1 g IV Q24 7 Days Qty: 7 0RF Rx Instructions: dx: esbl ecoli uti weekly cmp and cbc while on iv abx. Fax to [phone] sennosides-docusate sodium [Stool Softener-Stimulant Laxat] 8.6-50 mg Tablet 2 tab PO BID PRN PRN (Reason: Constipation) Qty: 0 0RF oxycodone 5 mg Tablet 5 mg PO Q6H PRN PRN (Reason: Pain Score 6-10) 3 Days Qty: 10 0RF Continued tamsulosin 0.4 MG capsule 0.4 mg PO QHS Patient Comments: Prostate and urine finasteride 5 MG tablet 5 mg PO DAILY Patient Comments: prostate atorvastatin 40 MG tablet 40 mg PO QHS Patient Comments: CHOLESTEROL sertraline 50 MG tablet 100 mg PO DAILY Patient Comments: depression mirtazapine 15 MG tablet 15 mg PO QHS clopidogrel 75 MG tablet 75 mg PO DAILY carbamazepine 200 MG tablet 200 mg PO Q12H Patient Comments: face pain losartan 100 mg tablet 100 mg PO DAILY pantoprazole 40 mg tablet,delayed release (DR/EC) 40 mg PO DAILY nifedipine 90 mg tablet extended release 90 mg PO DAILY acetaminophen [Tylenol] 325 mg Tablet 650 mg PO Q6H PRN PRN (Reason: Pain 1-10 Or Fever) Qty: 0 0RF ferrous sulfate [FeroSul] 325 mg (65 mg iron) Tablet 325 mg PO BID Qty: 1 0RF nicotine 21 mg/24 hr Patch 24 Hour 21 mg transdermal DAILY Qty: 0 0RF alendronate 70 mg tablet 70 mg PO QWEEK Qty: 1 0RF metoprolol tartrate 25 mg tablet 25 mg PO DAILY albuterol sulfate 90 mcg/actuation HFA aerosol inhaler 1 puff INHALATION Q8H Discontinued hydrocodone-acetaminophen [hydrocodone-acetaminophen] 5-325 mg tablet 1 tab PO Q6H PRN PRN (Reason: Pain) 3 Days Qty: 10 0RF Referrals / Follow Up: Daija Douglas MD [Primary Care Provider] - Within 2 Weeks Disposition Disposition (needs filled in before D/C Order can be placed): Shelter Facility (1) UTI (urinary tract infection) Qualifiers: Urinary tract infection type: acute cystitis Hematuria presence: without hematuria Qualified Code(s): N30.00 - Acute cystitis without hematuria
[2023-04-04] MEDS: Ertapenem Sod 1 GM in 0.9% Normal Saline (50mL MB+) 50 ML IV (09:32)
[2023-04-04] MEDS: 0.9% Saline Lock 10 ML Syringe IV (09:32)
[2023-04-04] MEDS: Enoxaparin 40 MG/0.4 ML Syringe SC (09:37)
[2023-04-04] MEDS: Sertraline 100 MG Tablet PO (09:38)
[2023-04-04] MEDS: Finasteride 5 MG Tablet PO (09:38)
[2023-04-04] MEDS: Pantoprazole Sodium 40 MG Tablet PO (09:38)
[2023-04-04] MEDS: Losartan Potassium 25 MG Tablet 75 MG PO (09:38)
[2023-04-04] MEDS: Clopidogrel Bisulfate 75 MG Tablet PO (09:38)
[2023-04-04] MEDS: carBAMazepine 200 MG Tablet PO (09:38)
[2023-04-04] MEDS: Ferrous Sulfate 325 MG Tablet PO (09:38)
[2023-04-04] MEDS: NIFEdipine 90 MG Tablet PO (09:39)
--- NOTE | 2023-04-04 10:02 | DS.PCM_ITS ---
Providers Date of Admission: 03/30/23 Primary Care Physician: Dr. Daija Douglas MD Consultations 04/03/23 08:57 Consult: Infectious Disease Routine Consulting Provider: Rodrigo Moore Reason for Consult: ESBL UTI EMERGENT Consult: No MD Notified: Yes Date Notified: 04/03/23 Time Notified: 08:58 Method of Notification: Text Reason For Visit: ACUTE UTI Diagnosis Discharge Diagnosis (1) UTI (urinary tract infection): Status: Acute Code(s): N39.0 - Urinary tract infection, site not specified Qualifiers: Urinary tract infection type: acute cystitis Hematuria presence: without hematuria Qualified Code(s): N30.00 - Acute cystitis without hematuria (2) Weakness: Status: Acute Code(s): R53.1 - Weakness (3) Chronic respiratory failure with hypoxia: Status: Chronic Code(s): J96.11 - Chronic respiratory failure with hypoxia Plan Patient is a 72-year-old gentleman admitted with multiple falls and progressive generalized weakness diagnosed with acute cystitis admitted to regular nursing floor 1. Acute cystitis ? Urine culture so far positive for E. coli final identification and sensitivities pending ? 04/02/2023; Patient urine cultures came back positive for ESBL positive E. coli patient was on ceftriaxone discontinued placed on meropenem - 04/03/2023; Consulted ID for dc abx -04/04/2023 patient to be discharged with Ertapemen for 7 days 2. Physical deconditioning with multiple falls - Requested for PT OT eval and social work coordinator to assist with discharge planning 3. Chronic hypoxic respiratory failure ? Secondary to COPD. Patient is on baseline home oxygen 2 L at rest 4. Acute hypertensive emergency ? Resolved 5. GERD ? On PPI 6.Tobacco abuse -Counseled; -Nicotine patch prescribed. 7. Paroxysmal A-fib -Metoprolol continued. Not on anticoagulation which I agree with if patient has multiple falls. 8. History of CVA -Stable, Plavix and statins continued. 9. BPH -on home tamsulosin and finasteride 10. DVT prophylaxis ? SC Lovenox Time spent in the patient's overall evaluation,decision-making process, review of diagnostic data, adjustment of management, discussion with other providers, nursing nursing and ancillary staff involved in patient's care documentation, 36 minutes. Medications at Discharge Home Medications tamsulosin 0.4 mg capsule 0.4 mg PO QHS bph 01/26/14 finasteride 5 mg tablet 5 mg PO DAILY prostate 11/14/14 atorvastatin 40 mg tablet 40 mg PO QHS Cholesterol 09/23/15 sertraline 50 mg tablet 100 mg PO DAILY mood stabilizer 12/02/15 mirtazapine 15 mg tablet 15 mg PO QHS anti depressant 08/16/19 clopidogrel 75 mg tablet 75 mg PO DAILY blood thinner 10/25/19 carbamazepine 200 mg tablet 200 mg PO Q12H Check with primary doctor 10/26/19 losartan 100 mg tablet 100 mg PO DAILY Blood pressure 08/19/21 pantoprazole 40 mg tablet,delayed release 40 mg PO DAILY GERD 08/19/21 nifedipine 90 mg tablet,extended release 90 mg PO DAILY 11/25/21 acetaminophen 325 mg tablet (Tylenol) 650 mg (2 x 325 mg) PO Q6H PRN PRN Pain 1- 10 Or Fever #0 tabs 11/30/21 alendronate 70 mg tablet 70 mg PO QWEEK #1 TAB 11/30/21 ferrous sulfate 325 mg (65 mg iron) tablet (FeroSul) 325 mg PO BID #1 TAB 11/30/21 nicotine 21 mg/24 hr daily transdermal patch 21 mg transdermal DAILY #0 ea 11/30/21 albuterol sulfate 90 mcg/actuation aerosol inhaler 1 puff inhalation Q8H 03/30/23 metoprolol tartrate 25 mg tablet 25 mg PO DAILY 03/30/23 ertapenem 1 gram solution for injection 1 g IV Q24 7 days #7 ea 04/03/23 oxycodone 5 mg tablet 5 mg PO Q6H PRN PRN Pain Score 6-10 3 days #10 tabs 04/04/23 sennosides 8.6 mg-docusate sodium 50 mg tablet (Stool Softener-Stimulant Laxative) 2 tab PO BID PRN PRN Constipation #0 tabs 04/04/23 Hospital Course Summary of Care Provided Minutes Spent on Discharge: 36 Physical Exam Narrative GENERAL: cooperative HEENT: Atraumatic; normocephalic EYES; Anicteric, Normal Conjunctiva NECK; supple, normal thyroid, RESPIRATORY: Diminished to auscultation CARDIOVASCULAR: Regular S1 S2, GI: soft, normoactive bowel sounds, : No Renal angle tenderness; EXTREMITIES: No edema, no clubbing, MUSCULOSKELETAL: no muscle wasting NEURO: Awake; no lateralizing signs. SKIN: No Rash PSYCH; Flat affect Weight / BMI Weight Weight: 63 kg Body Mass Index (BMI) 20.5 ABG / Lab / Microbiology Data 04/04/23 06:05 04/04/23 06:05 Laboratory: Laboratory Results - last 24 hr 04/04/23 06:05: WBC 6.3, RBC 4.82, Hgb 15.1, Hct 46.6, MCV 96.7 H, MCH 31.3, MCHC 32.4, RDW Std Deviation 48.9 H, RDW Coeff of Aly 13.6, Plt Count 379, MPV 9.3, Immature Gran % (Auto) 1.300 H, Neut % (Auto) 64.4, Lymph % (Auto) 23.6, [place] % (Auto) 6.3, Eos % (Auto) 3.3, Baso % (Auto) 1.1 H, Absolute Neuts (auto) 4.1, Absolute Lymphs (auto) 1.49, Nucleated RBC % 0, Sodium 136, Potassium 3.9, Chloride 103, Carbon Dioxide 29.0, Anion Gap 4 L, BUN 26 H, Creatinine 1.28, Estim Creat Clear Calc 45.80, Est GFR (MDRD) Af Amer 71, Est GFR (MDRD) Non-Af 58 L, BUN/Creatinine Ratio 20.3 H, Glucose 101, Calcium 9.7 Microbiology: Microbiology 03/30/23 17:04 Urine, Clean Catch Urine Culture - Final ESBL Escherichia coli 03/30/23 20:00 Blood Culture (Wb) - Anticubital Right Blood Culture - Preliminary No growth in 48 hours. 03/30/23 20:18 Blood Culture (Wb) - Anticubital Right Blood Culture - Preliminary No growth in 48 hours. D/C Instructions Discharge Diet: No restrictions Discharge Activity: Return to Normal Activity Call your doctor if you observe: Fever of 101 or Higher, Shortness of breath, Fainting spells and Chest pain Meaningful Use Info Meaningful Use Diagnoses (Choose all that apply): None applicable Discharge Plan Admission Admit Date/Time: 03/30/23 19:21 Attending Provider: Frankie Galindo Primary Care Provider: Daija Douglas Consulting Providers: Fran Cartwright; Celia Toribio; Rodrigo Moore Discharge Orders/Prescriptions Prescriptions: New ertapenem 1 gram Recon Soln 1 g IV Q24 7 Days Qty: 7 0RF Rx Instructions: dx: esbl ecoli uti weekly cmp and cbc while on iv abx. Fax to [phone] sennosides-docusate sodium [Stool Softener-Stimulant Laxat] 8.6-50 mg Tablet 2 tab PO BID PRN PRN (Reason: Constipation) Qty: 0 0RF oxycodone 5 mg Tablet 5 mg PO Q6H PRN PRN (Reason: Pain Score 6-10) 3 Days Qty: 10 0RF Continued tamsulosin 0.4 MG capsule 0.4 mg PO QHS Patient Comments: Prostate and urine finasteride 5 MG tablet 5 mg PO DAILY Patient Comments: prostate atorvastatin 40 MG tablet 40 mg PO QHS Patient Comments: CHOLESTEROL sertraline 50 MG tablet 100 mg PO DAILY Patient Comments: depression mirtazapine 15 MG tablet 15 mg PO QHS clopidogrel 75 MG tablet 75 mg PO DAILY carbamazepine 200 MG tablet 200 mg PO Q12H Patient Comments: face pain losartan 100 mg tablet 100 mg PO DAILY pantoprazole 40 mg tablet,delayed release (DR/EC) 40 mg PO DAILY nifedipine 90 mg tablet extended release 90 mg PO DAILY acetaminophen [Tylenol] 325 mg Tablet 650 mg PO Q6H PRN PRN (Reason: Pain 1-10 Or Fever) Qty: 0 0RF ferrous sulfate [FeroSul] 325 mg (65 mg iron) Tablet 325 mg PO BID Qty: 1 0RF nicotine 21 mg/24 hr Patch 24 Hour 21 mg transdermal DAILY Qty: 0 0RF alendronate 70 mg tablet 70 mg PO QWEEK Qty: 1 0RF metoprolol tartrate 25 mg tablet 25 mg PO DAILY albuterol sulfate 90 mcg/actuation HFA aerosol inhaler 1 puff INHALATION Q8H Discontinued hydrocodone-acetaminophen [hydrocodone-acetaminophen] 5-325 mg tablet 1 tab PO Q6H PRN PRN (Reason: Pain) 3 Days Qty: 10 0RF Referrals / Follow Up: Daija Douglas MD [Primary Care Provider] - Within 2 Weeks Disposition Disposition (needs filled in before D/C Order can be placed): [facility] Charges/Coding Visit Charges Inpatient E&M: 88877 Disch Hosp >30min
--- NOTE | 2023-04-04 10:17 | PHA.DC.MC.R ---
Pharmacy [facility] has performed discharge medication reconciliation and counseling for this patient. The patient's discharge medication list was reviewed for discrepancies and discrepancies were resolved. The patient was counseled on the following discharge medications and changes in medications for homegoing were reviewed. The Reason for Use, instructions for use, and potential side effects were reviewed for all new medications. The patient's questions regarding all of their medications were answered. 1. Ertapenem 1 gram IV daily x 7 days 2. Oxycodone 5 mg PO Q6H PRN pain score 6-10/10 The patient was able to verbally demonstrate an understanding of their discharge medications. Medications at Discharge Home Medications tamsulosin 0.4 mg capsule 0.4 mg PO QHS bph 01/26/14 finasteride 5 mg tablet 5 mg PO DAILY prostate 11/14/14 atorvastatin 40 mg tablet 40 mg PO QHS Cholesterol 09/23/15 sertraline 50 mg tablet 100 mg PO DAILY mood stabilizer 12/02/15 mirtazapine 15 mg tablet 15 mg PO QHS anti depressant 08/16/19 clopidogrel 75 mg tablet 75 mg PO DAILY blood thinner 10/25/19 carbamazepine 200 mg tablet 200 mg PO Q12H Check with primary doctor 10/26/19 losartan 100 mg tablet 100 mg PO DAILY Blood pressure 08/19/21 pantoprazole 40 mg tablet,delayed release 40 mg PO DAILY GERD 08/19/21 nifedipine 90 mg tablet,extended release 90 mg PO DAILY 11/25/21 acetaminophen 325 mg tablet (Tylenol) 650 mg (2 x 325 mg) PO Q6H PRN PRN Pain 1-10 Or Fever #0 tabs 11/30/21 alendronate 70 mg tablet 70 mg PO QWEEK #1 TAB 11/30/21 ferrous sulfate 325 mg (65 mg iron) tablet (FeroSul) 325 mg PO BID #1 TAB 11/30/21 nicotine 21 mg/24 hr daily transdermal patch 21 mg transdermal DAILY #0 ea 11/30/21 albuterol sulfate 90 mcg/actuation aerosol inhaler 1 puff inhalation Q8H 03/30/23 metoprolol tartrate 25 mg tablet 25 mg PO DAILY 03/30/23 ertapenem 1 gram solution for injection 1 g IV Q24 7 days #7 ea 04/03/23 oxycodone 5 mg tablet 5 mg PO Q6H PRN PRN Pain Score 6-10 3 days #10 tabs 04/04/23 sennosides 8.6 mg-docusate sodium 50 mg tablet (Stool Softener-Stimulant Laxative) 2 tab PO BID PRN PRN Constipation #0 tabs 04/04/23
--- NOTE | 2023-04-04 10:35 | CASEMGMT ---
Discharge Planning Discharge orders, signed med list, and transport time [facility]. [facility] will transport patient by wheelchair (although they said a cot may be sent d/t availability) at 11:30. Nursing, , patient and his contact updated. Jacquie Michaud, Discharge Planning Asst.
--- NOTE | 2023-04-04 10:40 | CASEMGMT ---
Social Work Patient medically ready for discharge. Precert was approved for transfer to [facility]. 7000 completed and sent along with discharge orders to [facility]. Patent notified, call attempted to be made to [facility]. Patient agreed to above. Transport arranged with [facility] Patient notified of transfer time. Sharmaine Leal, COURTROOM CLERK, CHIEF OF PRODUCTION
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
[2023-04-04] MEDS: oxyCODONE 5 MG Tablet PO (11:45)
== END 2023-04-04 11:58 | disposition skilled nursing facility (03) | DRG 690 ==
LOC: ED 17:44 → MS3 19:39
PROVIDERS: Internal Medicine; Admitting Provider Hospitalist; Emergency Provider Emergency Medicine; PCP Internal Medicine; Visit Provider Internal Medicine
DX: N30.00 Acute cystitis without hematuria (principal); J96.11 Chronic respiratory failure with hypoxia; I16.1 Hypertensive emergency; S09.90XA Unspecified injury of head, initial encounter; E11.9 Type 2 diabetes mellitus without complications; E78.00 Pure hypercholesterolemia, unspecified; B96.20 Unspecified Escherichia coli [E. coli] as the cause of diseases classified elsewhere; J44.9 Chronic obstructive pulmonary disease, unspecified; I48.0 Paroxysmal atrial fibrillation; F17.210 Nicotine dependence, cigarettes, uncomplicated; R26.2 Difficulty in walking, not elsewhere classified; I10 Essential (primary) hypertension; M19.90 Unspecified osteoarthritis, unspecified site; K21.9 Gastro-esophageal reflux disease without esophagitis; W18.30XA Fall on same level, unspecified, initial encounter; S40.012A Contusion of left shoulder, initial encounter; S80.211A Abrasion, right knee, initial encounter; Z79.02 Long term (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 of antithrombotics/antiplatelets; Z79.83 Long term (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 of bisphosphonates; G89.29 Other chronic pain; Z79.01 Long term (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 of anticoagulants; Z23 Encounter for immunization; Z79.899 Other long term (current) drug therapy; Z99.81 Dependence on supplemental oxygen; N40.0 Benign prostatic hyperplasia without lower urinary tract symptoms
CPT/HCPCS: 36415; 70450; 71045; 72128; 72170; 73030; 80048; 80053; 81001; 83605; 83735; 84100; 85025; 87040; 87086; 87088; 87186; 93005; 94640; 97110; 97116; 97162; 97166; 97530; 97535; 99282; 99285; J2185; J7040; J7050; 90662; A4216

== ENCOUNTER → 2023-05-19 | Outpatient (REF) | payer MEDICARE, MEDICAID, SELFPAY ==
[2023-05-19 09:04] LABS: Hematocrit 42.2 % (40-54); Hemoglobin 13.8 g/dL (13.0-16.5); Mean Corp Hgb Conc 32.7 g/dL (32-36); Mean Corpuscular Hgb 32.5 pg (27.0-32.0); Mean Corpuscular Volume 99.5 fL (80-94); Mean Platelet Vol. 9.9 fl (6.2-12.0); Platelet Count 284 K/mm3 (150-450); RBC Distribution Width CV 14.3 % (11.6-14.6); RBC Distribution Width SD 52.4 fl (35.1-43.9); Red Blood Count 4.24 M/mm3 (4.6-6.2); White Blood Count 6.2 K/mm3 (4.4-11.0)
[2023-05-19 09:19] LABS: ALB/GLOB Ratio 1.1 RATIO (0.9-2.4); AST(SGOT) 17 U/L (15-37); Alanine Aminotransfer ALT/SGPT 33 U/L (16-61); Albumin, Serum 3.4 g/dL (3.2-5.0); Alkaline Phosphatase 72 U/L (45-117); Anion Gap 3 (5-15); BUN 22 mg/dL (7-18); BUN/Creat Ratio 18.6 RATIO (10-20); Calcium,Total 8.7 mg/dL (8.5-10.1); Chloride 109 mmol/L (98-107); Creatinine, Serum 1.18 mg/dL (0.70-1.30); EST Glomerular Filtration Rate 64 mL/min (>60); Est Glom Filt Rate - Afr Amer 78 mL/min (>60); Globulin 3.1 g/dL (2.2-4.2); Glucose 100 mg/dL (74-106); Potassium 3.6 mmol/L (3.5-5.1); Protein, Total 6.5 g/dL (6.4-8.2); Sodium Level 141 mmol/L (136-145)
== END ==
LOC: OLS.SW 05:00
PROVIDERS: PCP Internal Medicine; Visit Provider Family Medicine
DX: J44.9 Chronic obstructive pulmonary disease, unspecified (principal); E11.9 Type 2 diabetes mellitus without complications; I48.0 Paroxysmal atrial fibrillation; J96.11 Chronic respiratory failure with hypoxia
CPT/HCPCS: 36415; 80053; 85027

== ENCOUNTER → 2023-06-14 | Outpatient (CLI) | payer MEDICARE, MEDICAID, SELFPAY ==
[2023-06-14 11:28] LABS: Absolute Lymphocyte Count 1.09 X10^3/uL (0.83-4.51); Absolute Neutrophil Count 4.7 X10^3/uL (2.0-7.7); Basophil# 0.09 X10^3/uL; Basophil% 1.4 % (0-1); Eosinophil# 0.13 X10^3/uL; Hematocrit 45.7 % (40-54); Hemoglobin 15.8 g/dL (13.0-16.5); Lymphocyte # 1.09 X10^3/ul (0.83-4.51); Lymphocyte % 16.8 % (19-41); Mean Corp Hgb Conc 34.6 g/dL (32-36); Mean Corpuscular Hgb 33.4 pg (27.0-32.0); Mean Corpuscular Volume 96.6 fL (80-94); Mean Platelet Vol. 9.9 fl (6.2-12.0); Monocyte# 0.46 X10^3/uL; Monocyte% 7.1 % (0-10); NRBC Flagged by Analyzer 0 % (0-5); Neutrophil # 4.69 X10^3/uL (2.7-7.7); Neutrophil % 72.2 % (47-70); Platelet Count 285 K/mm3 (150-450); RBC Distribution Width CV 13.1 % (11.6-14.6); RBC Distribution Width SD 46.5 fl (35.1-43.9); Red Blood Count 4.73 M/mm3 (4.6-6.2); White Blood Count 6.5 K/mm3 (4.4-11.0)
[2023-06-14 11:51] LABS: Anion Gap 5 (5-15); BUN 20 mg/dL (7-18); BUN/Creat Ratio 16.1 RATIO (10-20); Calcium,Total 9.8 mg/dL (8.5-10.1); Chloride 104 mmol/L (98-107); Creatinine, Serum 1.24 mg/dL (0.70-1.30); EST Glomerular Filtration Rate 61 mL/min (>60); Est Glom Filt Rate - Afr Amer 73 mL/min (>60); Glucose 108 mg/dL (74-106); Potassium 4.2 mmol/L (3.5-5.1); Sodium Level 139 mmol/L (136-145)
== END | disposition home or self-care (01) ==
LOC: LABSPEC 11:14
PROVIDERS: PCP Internal Medicine; Referring Provider Internal Medicine; Visit Provider Internal Medicine
DX: K92.2 Gastrointestinal hemorrhage, unspecified (principal); Z79.02 Long term (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 of antithrombotics/antiplatelets
CPT/HCPCS: 80048; 85025

== ENCOUNTER 2023-07-24 16:43 | Inpatient (IN) | payer MEDICARE, MEDICAID, SELFPAY ==
[2023-07-24 16:44] VITALS: BP 135/105; PULSE 58; RESP 18; TEMP 35.9; O2SAT 95
--- NOTE | 2023-07-24 16:52 | RAD_ITS ---
STUDY: X-RAY - PELVIS AND RIGHT HIP REASON FOR EXAM: Male, 73 years old. fall, attn rami TECHNIQUE: 3 views of the pelvis and hip. COMPARISON: None. FINDINGS: There is a non-specific bowel gas pattern. Bilateral iliac grafts are noted. Normal bilateral iliac wings, sacroiliac joints and visualized sacrum. There is an acute comminuted fracture of the right superior pubic ramus with mild overlapping and separation of fracture fragments. There is also a nondisplaced fracture of the inferior ramus Normal pubic symphysis. Normal bilateral ischial tuberosities. Normal visualized femoral head. Normal acetabulum. Normal hip joint. RAD/HIP, UNI W/ Pelvis 2-3 Views IMPRESSION: Acute fractures of right superior and inferior pubic rami Electronically Signed: Gonzales Chaney MD at 17:27 EST ,
[2023-07-24 17:27] VITALS: BP 193/74; PULSE 75; RESP 16; O2SAT 94; BMI 22.8
--- NOTE | 2023-07-24 17:33 | EDS_ITS ---
HPI History of Present Illness HPI Narrative: Patient presents with right hip pain that began after a fall today. Patient states his right leg gave out and caused him to fall. Patient states he was recently discharged from [facility] and is back at home. Patient states he was walking in his driveway when he fell. Patient denies any head injury or loss of consciousness. Patient denies any paresthesias or weakness. Patient describes his pain as sharp. Patient states it is worse with movement. Patient admits to some tingling in his right leg. Patient denies any weakness. Patient denies any other injuries. Chief Complaint: Fall Informant: patient Occured/Mechanism Mechanism/Context: Yes fall Onset/Context/Timing Onset: Today Context: Sudden Onset Timing: Continuous Quality of Pain: Sharp Location: Right hip Worsened by: Movement, weightbearing Relieved by: Nothing Associated Symptoms Associated Symptoms: Positive for Parasthesia; Negative for Weakness or Loss [facility] Funtion [facility] History Asthma Atrial fibrillation Chronic pain COPD (chronic obstructive pulmonary disease) COPD (chronic obstructive pulmonary disease) Depression Diabetes Falls frequently High cholesterol Hypertension Irregular heart beat Kidney stones On home oxygen therapy Pancreatitis Seizures Sleep apnea Smoker Stroke/cerebrovascular accident Home Medications tamsulosin 0.4 mg capsule 0.4 mg PO QHS bph 01/26/14 [History Last Taken 03/28/23] finasteride 5 mg tablet 5 mg PO DAILY prostate 11/14/14 [History Last Taken 03/28/23] atorvastatin 40 mg tablet 40 mg PO QHS Cholesterol 09/23/15 [History Last Taken 03/28/23] sertraline 50 mg tablet 100 mg PO DAILY mood stabilizer 12/02/15 [History Last Taken 03/28/23] mirtazapine 15 mg tablet 15 mg PO QHS anti depressant 08/16/19 [History Last Taken 03/28/23] clopidogrel 75 mg tablet 75 mg PO DAILY blood thinner 10/25/19 [History Last Taken 03/28/23] carbamazepine 200 mg tablet 200 mg PO Q12H Check with primary doctor 10/26/19 [History Last Taken 03/28/23] losartan 100 mg tablet 100 mg PO DAILY Blood pressure 08/19/21 [History Last Taken 03/28/23] pantoprazole 40 mg tablet,delayed release 40 mg PO DAILY GERD 08/19/21 [History Last Taken 03/28/23] nifedipine 90 mg tablet,extended release 90 mg PO DAILY 11/25/21 [History Last Taken 03/28/23] acetaminophen 325 mg tablet (Tylenol) 650 mg (2 x 325 mg) PO Q6H PRN PRN Pain 1- 10 Or Fever #0 tabs 11/30/21 [Rx Last Taken 03/28/23] alendronate 70 mg tablet 70 mg PO QWEEK #1 TAB 11/30/21 [Rx Last Taken 03/28/23] ferrous sulfate 325 mg (65 mg iron) tablet (FeroSul) 325 mg PO BID #1 TAB 11/30 [Rx Last Taken 03/28/23] nicotine 21 mg/24 hr daily transdermal patch 21 mg transdermal DAILY #0 ea 11/30/21 [Rx Last Taken 03/28/23] albuterol sulfate 90 mcg/actuation aerosol inhaler 1 puff inhalation Q8H 03/30/23 [History Last Taken 03/28/23] metoprolol tartrate 25 mg tablet 25 mg PO DAILY 03/30/23 [History Last Taken 03/28/23] ertapenem 1 gram solution for injection 1 g IV Q24 7 days #7 ea 04/03/23 [Rx Last Taken Unknown] oxycodone 5 mg tablet 5 mg PO Q6H PRN PRN Pain Score 6-10 3 days #10 tabs 04/04/23 [Rx Last Taken Unknown] sennosides 8.6 mg-docusate sodium 50 mg tablet (Stool Softener-Stimulant Laxative) 2 tab PO BID PRN PRN Constipation #0 tabs 04/04/23 [Rx Last Taken Unknown] Allergy/AdvReac Type Severity Reaction Status Date / Time No Known Allergies Allergy Verified 07/24/23 16:43 Family History Other Heart disease Surgical History History of appendectomy S/P arterial stent Social History household members: none Smoking Status: Current every day smoker tobacco type: cigarettes alcohol intake: former details: Former 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 ROS ED Constitutional Constitutional ED: Denies chills or fever(s) Eyes Eyes: Denies blurry vision or change in vision ENT ENT ED: Denies rhinorrhea or sore throat Cardiovascular Cardiovascular: Denies chest pain or palpitations Respiratory/Chest Respiratory/Chest: Denies cough or dyspnea Gastrointestinal Gastrointestinal: Denies nausea or vomiting Genitourinary Genitourinary ED: Denies dysuria or hematuria Musculoskeletal Musculoskeletal: Denies back pain or neck pain Integumentary Denies abscess or rash Neurologic Neurologic: Denies headache(s) or weakness Allergic/Immunologic Allergic/Immunologic ED: Denies mouth swelling or urticaria EXAM Physical Exam Const Vital Signs: 07/24/23 16:44 07/24/23 17:27 07/24/23 17:27 Temperature 96.7 F L Temperature Source Temporal Pulse Rate 58 L 75 Respiratory Rate 18 16 Respiratory Effort Normal Respiratory Depth Normal Respiratory Pattern Normal Blood Pressure 135/105 H 193/74 H Blood Pressure Mean 115 113 Pulse Ox 95 94 Oxygen Delivery Method Room Air Room Air Room Air 07/24/23 20:17 Temperature Temperature Source Pulse Rate 71 Respiratory Rate 16 Respiratory Effort Respiratory Depth Respiratory Pattern Blood Pressure 194/90 H Blood Pressure Mean 124 Pulse Ox 90 Oxygen Delivery Method Room Air Positive well nourished and well developed General Appearance ED: well developed and NAD HEENT Reports moist mucous membranes Neck full ROM and supple Resp normal respiratory effort and clear to auscultation bilaterally Cardio regular rate and regular rhythm GI non-tender and non-distended Extremity Extremity Narrative: There is tenderness of the right hip and pelvis. There is no obvious deformity noted. Range of motion was limited in all motions of the right hip secondary to pain. Strength is 5/5 bilaterally in the lower extremities. There are no sensory deficits noted. Pedal pulses are equal bilaterally. General Extremety ED: Yes weight-bearing difficulty General Extremity: weight-bearing difficulty Neuro oriented x3, CN's II-XII intact bilaterally, moves all extremities and no sensory deficits noted Sensorium / Orientation: alert Motor Exam: strength 5/5 throughout Psych mental status grossly normal MDM MDM MDM Narrative Medical decision making narrative: Protocol right hip x-ray in triage was ordered to assess for fracture. CBC will be obtained to assess for leukocytosis and anemia. Basic metabolic profile will be obtained to assess for electrolyte abnormality and renal function. Lab Data Attestation: I reviewed the patient's lab results. Lab results narrative: CBC was reviewed and was within normal limits. Basic metabolic profile was reviewed and was essentially within normal limits. Labs: Laboratory Results - last 24 hr 07/24/23 17:20 WBC 7.1 RBC 5.00 Hgb 16.2 Hct 47.4 MCV 94.8 H MCH 32.4 H MCHC 34.2 RDW Std Deviation 44.3 H RDW Coeff of Aly 12.8 Plt Count 285 MPV 9.8 Immature Gran % (Auto) 0.600 Neut % (Auto) 74.0 H Lymph % (Auto) 16.0 L [place] % (Auto) 7.3 Eos % (Auto) 1.1 Baso % (Auto) 1.0 Absolute Neuts (auto) 5.3 Absolute Lymphs (auto) 1.14 Nucleated RBC % 0 Sodium 139 Potassium 3.8 Chloride 103 Carbon Dioxide 28.0 Anion Gap 8 BUN 18 Creatinine 1.28 Estim Creat Clear Calc 48.70 Est GFR (MDRD) Af Amer 71 Est GFR (MDRD) Non-Af 58 L BUN/Creatinine Ratio 14.1 Glucose 134 H Calcium 9.8 Radiography Diagnostic Testing: Clinical Impression(s) from Imaging Studies Hip/Pelvis X-Ray 07/24/23 16:52 IMPRESSION: Acute fractures of right superior and inferior pubic rami Electronically Signed: Gonzales Chaney MD at 17:27 EST Reading Location ID and State: [facility] / [place] Tel , Service support , X-rays of the right hip were obtained. There are 3 views. On my independent interpretation, there are fractures of the right superior and inferior pubic rami. There is minimal displacement noted. There is no femoral neck fracture noted. Radiologist also interpreted the x-rays and agrees. Treatment and Re-Evaluation Narrative: I attempted to contact sr. social media & mobile manager to see if the patient can [facility] or if he would need to be readmitted to the hospital. There is no sr. social media & mobile manager here in the emergency department today. Therefore, case will be discussed with the hospitalist for admission. Patient understood and was agreeable with the plan. All questions were answered. Discharge Plan Triage Chief Complaint: Fall Other Complaint: Lower Extremity Injury ED Provider: Raul Melchor Dx/Rx/DC Orders Clinical Impression: Tobacco abuse, Closed fracture of right inferior pubic ramus, Closed fracture of right superior pubic ramus Prescriptions: No Action tamsulosin 0.4 MG capsule 0.4 mg PO QHS Patient Comments: Prostate and urine finasteride 5 MG tablet 5 mg PO DAILY Patient Comments: prostate atorvastatin 40 MG tablet 40 mg PO QHS Patient Comments: CHOLESTEROL sertraline 50 MG tablet 100 mg PO DAILY Patient Comments: depression mirtazapine 15 MG tablet 15 mg PO QHS clopidogrel 75 MG tablet 75 mg PO DAILY carbamazepine 200 MG tablet 200 mg PO Q12H Patient Comments: face pain losartan 100 mg tablet 100 mg PO DAILY pantoprazole 40 mg tablet,delayed release (DR/EC) 40 mg PO DAILY nifedipine 90 mg tablet extended release 90 mg PO DAILY acetaminophen [Tylenol] 325 mg Tablet 650 mg PO Q6H PRN PRN (Reason: Pain 1-10 Or Fever) Qty: 0 0RF ferrous sulfate [FeroSul] 325 mg (65 mg iron) Tablet 325 mg PO BID Qty: 1 0RF nicotine 21 mg/24 hr Patch 24 Hour 21 mg transdermal DAILY Qty: 0 0RF alendronate 70 mg tablet 70 mg PO QWEEK Qty: 1 0RF metoprolol tartrate 25 mg tablet 25 mg PO DAILY albuterol sulfate 90 mcg/actuation HFA aerosol inhaler 1 puff INHALATION Q8H ertapenem 1 gram Recon Soln 1 g IV Q24 7 Days Qty: 7 0RF Rx Instructions: dx: esbl ecoli uti weekly cmp and cbc while on iv abx. Fax to [phone] sennosides-docusate sodium [Stool Softener-Stimulant Laxat] 8.6-50 mg Tablet 2 tab PO BID PRN PRN (Reason: Constipation) Qty: 0 0RF oxycodone 5 mg Tablet 5 mg PO Q6H PRN PRN (Reason: Pain Score 6-10) 3 Days Qty: 10 0RF Primary Care Provider: Daija Douglas Referrals: Daija Douglas MD [Primary Care Provider] - Disposition Disposition: Acute Care [facility]
[2023-07-24] MEDS: Morphine 4 MG/ML Syringe IV ×3 (17:56→22:51)
[2023-07-24 18:20] LABS: Absolute Lymphocyte Count 1.14 X10^3/uL (0.83-4.51); Absolute Neutrophil Count 5.3 X10^3/uL (2.0-7.7); Basophil# 0.07 X10^3/uL; Eosinophil# 0.08 X10^3/uL; Eosinophils% 1.1 % (0-5); Hematocrit 47.4 % (40-54); Hemoglobin 16.2 g/dL (13.0-16.5); Lymphocyte # 1.14 X10^3/ul (0.83-4.51); Mean Corp Hgb Conc 34.2 g/dL (32-36); Mean Corpuscular Hgb 32.4 pg (27.0-32.0); Mean Corpuscular Volume 94.8 fL (80-94); Mean Platelet Vol. 9.8 fl (6.2-12.0); Monocyte# 0.52 X10^3/uL; Monocyte% 7.3 % (0-10); NRBC Flagged by Analyzer 0 % (0-5); Neutrophil # 5.29 X10^3/uL (2.7-7.7); Platelet Count 285 K/mm3 (150-450); RBC Distribution Width CV 12.8 % (11.6-14.6); RBC Distribution Width SD 44.3 fl (35.1-43.9); White Blood Count 7.1 K/mm3 (4.4-11.0)
[2023-07-24 18:33] LABS: Anion Gap 8 (5-15); BUN 18 mg/dL (7-18); BUN/Creat Ratio 14.1 RATIO (10-20); Calcium,Total 9.8 mg/dL (8.5-10.1); Chloride 103 mmol/L (98-107); Creatinine, Serum 1.28 mg/dL (0.70-1.30); EST Glomerular Filtration Rate 58 mL/min (>60); Est Glom Filt Rate - Afr Amer 71 mL/min (>60); Glucose 134 mg/dL (74-106); Potassium 3.8 mmol/L (3.5-5.1); Sodium Level 139 mmol/L (136-145)
[2023-07-24 20:17] VITALS: BP 194/90; PULSE 71; RESP 16; O2SAT 90
--- NOTE | 2023-07-24 21:04 | HP.PCM_ITS ---
HPI - General General Date of Admission: 07/24/23 Date of Service: 07/24/23 Chief Complaint: fall with fracture HPI Narrative PEDRO PABLO SIERRA, is a 73 M who presents to the emergency room with chief complaint of pain after suffering a fall. Patient was out shopping with his brother when he was lifting groceries and fell to his right side and felt significant pain in his hip area. X-rays revealed two pubic rami fractures. Patient has sign ificant past medical history of recent discharge from custodial for debility and weakness. Patient does also have a history of long-term smoking. Patient denies any chest pain, shortness of breath fevers or chills at present time. He will be admitted for pain control and case management to arrange for snf care facility. [facility] Medical History Asthma Atrial fibrillation Chronic pain COPD (chronic obstructive pulmonary disease) COPD (chronic obstructive pulmonary disease) Depression Diabetes Falls frequently High cholesterol Hypertension Irregular heart beat Kidney stones On home oxygen therapy Pancreatitis Seizures Sleep apnea Smoker Stroke/cerebrovascular accident Home Medications tamsulosin 0.4 mg capsule 0.4 mg PO QHS bph 01/26/14 [History Last Taken 03/28/23] finasteride 5 mg tablet 5 mg PO DAILY prostate 11/14/14 [History Last Taken 03/28/23] atorvastatin 40 mg tablet 40 mg PO QHS Cholesterol 09/23/15 [History Last Taken 03/28/23] sertraline 50 mg tablet 100 mg PO DAILY mood stabilizer 12/02/15 [History Last Taken 03/28/23] mirtazapine 15 mg tablet 15 mg PO QHS anti depressant 08/16/19 [History Last Tra en 03/28/23] clopidogrel 75 mg tablet 75 mg PO DAILY blood thinner 10/25/19 [History Last Taken 03/28/23] carbamazepine 200 mg tablet 200 mg PO Q12H Check with primary doctor 10/26/19 [History Last Taken 03/28/23] losartan 100 mg tablet 100 mg PO DAILY Blood pressure 08/19/21 [History Last Taken 03/28/23] pantoprazole 40 mg tablet,delayed release 40 mg PO DAILY GERD 08/19/21 [History Last Taken 03/28/23] nifedipine 90 mg tablet,extended release 90 mg PO DAILY 11/25/21 [History Last Taken 03/28/23] acetaminophen 325 mg tablet (Tylenol) 650 mg (2 x 325 mg) PO Q6H PRN PRN Pain 1- 10 Or Fever #0 tabs 11/30/21 [Rx Last Taken 03/28/23] alendronate 70 mg tablet 70 mg PO QWEEK #1 TAB 11/30/21 [Rx Last Taken 03/28/23] ferrous sulfate 325 mg (65 mg iron) tablet (FeroSul) 325 mg PO BID #1 TAB 11/30/21 [Rx Last Taken 03/28/23] nicotine 21 mg/24 hr daily transdermal patch 21 mg transdermal DAILY #0 ea 11/30/21 [Rx Last Taken 03/28/23] albuterol sulfate 90 mcg/actuation aerosol inhaler 1 puff inhalation Q8H 03/30/23 [History Last Taken 03/28/23] metoprolol tartrate 25 mg tablet 25 mg PO DAILY 03/30/23 [History Last Taken 03/28/23] ertapenem 1 gram solution for injection 1 g IV Q24 7 days #7 ea 04/03/23 [Rx Last Taken Unknown] oxycodone 5 mg tablet 5 mg PO Q6H PRN PRN Pain Score 6-10 3 days #10 tabs 04/04/23 [Rx Last Taken Unknown] sennosides 8.6 mg-docusate sodium 50 mg tablet (Stool Softener-Stimulant Laxative) 2 tab PO BID PRN PRN Constipation #0 tabs 04/04/23 [Rx Last Taken Unknown] Allergy/AdvReac Type Severity Reaction Status Date / Time No Known Allergies Allergy Verified 07/24/23 16:43 Family History Other Heart disease Surgical History History of appendectomy S/P arterial stent Social History household members: none Smoking Status: Current every day smoker tobacco type: cigarettes alcohol intake: former details: Former 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 Constitutional Constitutional: Denies chills or fever(s) Eyes Eyes: Denies blurry vision ENT HEENT: Denies abnormal hearing Cardiovascular Cardiovascular: Reports chest pain Respiratory/Chest Respiratory/Chest: Denies shortness of breath at rest Gastrointestinal Gastrointestinal: Denies abdominal pain Genitourinary Genitourinary: Denies dysuria Musculoskeletal Musculoskeletal: Reports extremity pain and joint pain Integumentary Integumentary: Denies dry skin Neurologic Neurologic: Denies confusion or dizziness Psychiatric Psychiatric: Denies depression Vital Signs Vital Signs Vital Signs: 07/24/23 16:44 07/24/23 17:27 07/24/23 17:27 Temperature 96.7 F L Temperature Source Temporal Pulse Rate 58 L 75 Respiratory Rate 18 16 Respiratory Effort Normal Respiratory Depth Normal Respiratory Pattern Normal Blood Pressure 135/105 H 193/74 H Blood Pressure Mean 115 113 Pulse Ox 95 94 Oxygen Delivery Method Room Air Room Air Room Air 07/24/23 20:17 Temperature Temperature Source Pulse Rate 71 Respiratory Rate 16 Respiratory Effort Respiratory Depth Respiratory Pattern Blood Pressure 194/90 H Blood Pressure Mean 124 Pulse Ox 90 Oxygen Delivery Method Room Air Weight Weight: 149 lb 14.629 oz Body Mass Index (BMI) 22.8 Physical Exam Const oriented x3 General Appearance: cooperative HEENT normocephalic and head/scalp atraumatic Eyes PERRL Neck no lymphadenopathy Lymph Lymphatic: no lymphadenopathy noted Resp normal respiratory effort and normal air movement Auscultation: wheezes Cardio regular rate, regular rhythm, S1 normal heart sound and S2 normal heart sound GI normal to inspection, nondistended, normoactive bowel sounds Extremity Extremity Narrative: tenderness in right pelvis Skin General Skin Exam: no breakdown Neuro no focal motor deficits and no sensory deficits noted Psych thought process normal, cooperative and affect normal Results Lab / Micro Data 07/24/23 17:20 07/24/23 17:20 Labs: Laboratory Results - last 24 hr 07/24/23 17:20: WBC 7.1, RBC 5.00, Hgb 16.2, Hct 47.4, MCV 94.8 H, MCH 32.4 H, MCHC 34.2, RDW Std Deviation 44.3 H, RDW Coeff of Aly 12.8, Plt Count 285, MPV 9.8, Immature Gran % (Auto) 0.600, Neut % (Auto) 74.0 H, Lymph % (Auto) 16.0 L, Williams % (Auto) 7.3, Eos % (Auto) 1.1, Baso % (Auto) 1.0, Absolute Neuts (auto) 5.3, Absolute Lymphs (auto) 1.14, Nucleated RBC % 0, Sodium 139, Potassium 3.8, Chloride 103, Carbon Dioxide 28.0, Anion Gap 8, BUN 18, Creatinine 1.28, Estim Creat Clear Calc 48.70, Est GFR (MDRD) Af Amer 71, Est GFR (MDRD) Non-Af 58 L, BUN/Creatinine Ratio 14.1, Glucose 134 H, Calcium 9.8 Imaging Radiology Impression Hip/Pelvis X-Ray 07/24/23 16:52 IMPRESSION: Acute fractures of right superior and inferior pubic rami Electronically Signed: Gonzales Chaney MD at 17:27 EST , Assessment & Plan Assessment/Plan (1) Closed fracture of right superior pubic ramus: (2) Closed fracture of right inferior pubic ramus: (3) Inability to walk: (4) Weakness: PLAN: Plan 1 closed fracture of right superior and right inferior pubic ramus?admit patient to general medical floor, morphine as needed pain, consult case management for discharge planning 2. History of smoking will add nicotine patch 3. Hypertension we will continue routine home medications 4. COPD?continue inhalers for control 5 DVT prophylaxis?low molecular weight heparin if not on anticoagulation Charges/Coding Visit Charges Inpatient E&M: 71203 Init Hosp L2
[2023-07-24 21:13] VITALS: BP 210/89; PULSE 65; RESP 16; O2SAT 91
[2023-07-24 21:55] VITALS: BP 215/93; PULSE 69; RESP 18; TEMP 36.6; O2SAT 95; BMI 17.4
[2023-07-24] MEDS: Atorvastatin Calcium 40 MG Tablet PO (22:48)
[2023-07-24] MEDS: Mirtazapine 15 MG Tablet PO (22:48)
[2023-07-24] MEDS: carBAMazepine 200 MG Tablet PO (22:50)
[2023-07-24] MEDS: Tamsulosin HCl 0.4 MG Capsule PO (22:50)
[2023-07-24 23:09] VITALS: O2SAT 95
[2023-07-25] VITALS (8 sets, daily range): BP systolic 118–174; BP diastolic 65–94; PULSE 70–88; RESP 18; TEMP 36.5–36.8; O2SAT 86–95
[2023-07-25] MEDS: Morphine 2 MG/ML Syringe IV (06:53)
[2023-07-25 06:57] LABS: Absolute Lymphocyte Count 1.22 X10^3/uL (0.83-4.51); Absolute Neutrophil Count 4.9 X10^3/uL (2.0-7.7); Basophil# 0.06 X10^3/uL; Basophil% 0.9 % (0-1); Eosinophil# 0.05 X10^3/uL; Eosinophils% 0.7 % (0-5); Hematocrit 41.9 % (40-54); Hemoglobin 14.3 g/dL (13.0-16.5); Lymphocyte # 1.22 X10^3/ul (0.83-4.51); Lymphocyte % 17.6 % (19-41); Mean Corp Hgb Conc 34.1 g/dL (32-36); Mean Corpuscular Hgb 32.5 pg (27.0-32.0); Mean Corpuscular Volume 95.2 fL (80-94); Mean Platelet Vol. 9.7 fl (6.2-12.0); Monocyte# 0.69 X10^3/uL; NRBC Flagged by Analyzer 0 % (0-5); Neutrophil # 4.88 X10^3/uL (2.7-7.7); Neutrophil % 70.5 % (47-70); Platelet Count 245 K/mm3 (150-450); RBC Distribution Width CV 12.7 % (11.6-14.6); RBC Distribution Width SD 44.9 fl (35.1-43.9); White Blood Count 6.9 K/mm3 (4.4-11.0)
[2023-07-25 07:45] LABS: Anion Gap 8 (5-15); BUN 16 mg/dL (7-18); BUN/Creat Ratio 13.2 RATIO (10-20); Calcium,Total 9.3 mg/dL (8.5-10.1); Chloride 105 mmol/L (98-107); Creatinine, Serum 1.21 mg/dL (0.70-1.30); EST Glomerular Filtration Rate 62 mL/min (>60); Est Glom Filt Rate - Afr Amer 75 mL/min (>60); Estimated Creatinine Clearance 39.28 ml/min; Glucose 126 mg/dL (74-106); Potassium 3.5 mmol/L (3.5-5.1); Sodium Level 138 mmol/L (136-145)
[2023-07-25] MEDS: Losartan Potassium 100 MG Tablet PO (09:33)
[2023-07-25] MEDS: Sertraline 100 MG Tablet PO (09:33)
[2023-07-25] MEDS: Metoprolol Tartrate 25 MG Tablet PO (09:34)
[2023-07-25] MEDS: NIFEdipine 90 MG Tablet PO (09:35)
[2023-07-25] MEDS: Clopidogrel Bisulfate 75 MG Tablet PO (09:35)
[2023-07-25] MEDS: Pantoprazole Sodium 40 MG Tablet PO (09:35)
[2023-07-25] MEDS: Ferrous Sulfate 325 MG Tablet PO (09:35)
[2023-07-25] MEDS: carBAMazepine 200 MG Tablet PO ×2 (09:36→21:34)
[2023-07-25] MEDS: Finasteride 5 MG Tablet PO (09:36)
[2023-07-25] MEDS: Acetaminophen 500 MG Tablet 1000 MG PO ×3 (09:42→21:40)
[2023-07-25] MEDS: Menthol/Lanolin/Calamine/Znox 113 GM Tube 1 APPLIC TOPICAL ×2 (10:28→21:34)
[2023-07-25] MEDS: Nystatin Powder 15gm Bottle 1 APPLIC TOPICAL ×2 (10:29→21:33)
--- NOTE | 2023-07-25 11:12 | CASEMGMT ---
Discharge Planning A list of?SNF providers including quality and resource use data and consistent with the patient's preferred geographic region, medical needs, and insurance network was created in CarePort Guide.? This list was provided to the SW. Jacquie Michaud Discharge Planning Asst.
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
[2023-07-25] MEDS: oxyCODONE 5 MG Tablet PO (14:11)
--- NOTE | 2023-07-25 14:20 | CASEMGMT ---
Discharge Planning Referral sent via CarePort to [facility]. Jacquie Michaud, Discharge Planning Asst.
--- NOTE | 2023-07-25 14:55 | CASEMGMT ---
Discharge Planning OT eval sent to [facility]. Asked for precert to be started. Jacquie Michaud, Discharge Planning Asst.
--- NOTE | 2023-07-25 15:19 | PN.HOSP_ITS ---
Reason for Visit Reason for Visit: Diagnoses Difficulty in walking, not elsewhere classified (07/24/23) Weakness (07/24/23) Fracture of superior rim of right pubis, initial encounter for closed fracture (07/24/23) Other specified fracture of right pubis, initial encounter for closed fracture (07/24/23) Subjective Subjective Patient was admitted yesterday evening for pelvic fractures after a fall. Seen at bedside this morning. Was sitting up comfortably in bed, in no acute distress. Patient was initially short and terse in his responses to me but was providing longer responses near the end of our conversation. He has not been out of bed yet this morning. He denies any pelvic pain at rest. His main concern is that he knows he will have significant pain when working with therapy and wants to make sure that pain is treated. No other acute concerns at this time. Objective Data Objective Data Vital Signs: Vital Signs Temp Pulse Resp BP Pulse Ox O2 Del Method 97.7 F L 81 18 118/65 89 Room Air 07/25/23 14:00 07/25/23 14:00 07/25/23 14:00 07/25/23 14:00 07/25/23 14:00 07/25/23 14:00 Oxygen Delivery Method Room Air Weight: 51.846 kg Body Mass Index (BMI) 17.4 Intake & Output: Intake and Output for Last 24 Hours 07/23/23 07/24/23 07/25/23 23:59 23:59 23:59 Intake Total 240 / 240 Balance 240 / 240 Lab / Micro Data 07/25/23 06:31 07/25/23 06:31 Labs: Laboratory Results - last 24 hr 07/24/23 17:20: WBC 7.1, RBC 5.00, Hgb 16.2, Hct 47.4, MCV 94.8 H, MCH 32.4 H, MCHC 34.2, RDW Std Deviation 44.3 H, RDW Coeff of Aly 12.8, Plt Count 285, MPV 9.8, Immature Gran % (Auto) 0.600, Neut % (Auto) 74.0 H, Lymph % (Auto) 16.0 L, Gallia % (Auto) 7.3, Eos % (Auto) 1.1, Baso % (Auto) 1.0, Absolute Neuts (auto) 5.3, Absolute Lymphs (auto) 1.14, Nucleated RBC % 0, Sodium 139, Potassium 3.8, Chloride 103, Carbon Dioxide 28.0, Anion Gap 8, BUN 18, Creatinine 1.28, Estim Creat Clear Calc 48.70, Est GFR (MDRD) Af Amer 71, Est GFR (MDRD) Non-Af 58 L, BUN/Creatinine Ratio 14.1, Glucose 134 H, Calcium 9.8 07/25/23 06:31: WBC 6.9, RBC 4.40 L, Hgb 14.3, Hct 41.9, MCV 95.2 H, MCH 32.5 H, MCHC 34.1, RDW Std Deviation 44.9 H, RDW Coeff of Aly 12.7, Plt Count 245, MPV 9.7, Immature Gran % (Auto) 0.300, Neut % (Auto) 70.5 H, Lymph % (Auto) 17.6 L, Gallia % (Auto) 10.0, Eos % (Auto) 0.7, Baso % (Auto) 0.9, Absolute Neuts (auto) 4.9, Absolute Lymphs (auto) 1.22, Nucleated RBC % 0, Sodium 138, Potassium 3.5, Chloride 105, Carbon Dioxide 25.0, Anion Gap 8, BUN 16, Creatinine 1.21, Estim Creat Clear Calc 39.28, Est GFR (MDRD) Af Amer 75, Est GFR (MDRD) Non-Af 62, BUN/Creatinine Ratio 13.2, Glucose 126 H, Calcium 9.3 Radiography Diagnostic Testing: Radiology Impression Hip/Pelvis X-Ray 07/24/23 16:52 IMPRESSION: Acute fractures of right superior and inferior pubic rami Electronically Signed: Gonzales Chaney MD at 17:27 EST Reading Location ID and State: [facility] / [place] Tel , Service support , Physical Exam Const alert and no apparent distress Constitutional Narrative: Elderely male, thin and cachetic appearing, sitting up comfortably in bed, short but appropriate responses to questions, no acute distress. General Appearance: cooperative HEENT normocephalic, head/scalp atraumatic, hearing grossly normal bilaterally and nasal mucous membranes and turbinates normal Eyes PERRL, EOMs intact bilaterally and conjunctivae normal Neck full ROM, no lymphadenopathy and supple Lymph Lymphatic: no lymphadenopathy noted Chest inspection of chest normal Resp normal respiratory effort, normal air movement, no use of accessory muscles and clear to auscultation bilaterally Cardio regular rate, regular rhythm, no murmurs and peripheral pulses 2+ throughout GI normal to inspection, nondistended, normoactive bowel sounds, soft to palpation, non-tender and non-distended Back/Spine Back/Spine Narrative: No gross abnormalities on visual exam. Extremity no pedal edema Extremity Narrative: No gross abnormalities of visual exam. Skin no rashes or lesions noted Neuro no focal motor deficits and no sensory deficits noted Speech: speech normal Psych mental status grossly normal Assessment & Plan Assessment/Plan (1) Closed fracture of right superior pubic ramus: (2) Closed fracture of right inferior pubic ramus: (3) Inability to walk: PLAN: Plan Patient is a 73 year old male who presented to [facility] ED on 07/24/2023 with hip and pelvic pain after a mechanical fall. 1. Closed fractures of right superior and right inferior pubic ramus, acute on chronic debility - PT/OT/CM following. Planning for SNF on discharge. Patient notably had good experience at [facility], would like to be discharged back there if possible. Scheduled tylenol, oxycodone as needed and IV dilaudid as needed for breakthrough pain. 2. Suspected malnutrition - BMI 17 on admit, presented with pubic fractures after ground level mechanical fall. Thin and cachectic appearing. Nutrition consulted. Chronic medical conditions: - COPD with chronic hypoxic respiratory failure: On home 2L NC. Stable, not in acute exacerbation. Continue home inhalers. - Hypertension: Continue home lopressor, losartan, nifedipine. - BPH with LUTS: Continue home tamsulosin and finasteride. - Depression: Continue home sertraline and mirtazapine. - GERD: Continue home PPI. - History of CVA: Continue home plavix and statin. - Paroxysmal Afib: Continue home lopressor. Not on AC due to recurrent falls. DVT prophylaxis: Lovenox Code status: Full code, verified Expected disposition: SNF, likely medically ready on 07/26 Total clinical time spent by myself addressing the patient's medical issues, reviewing all the data, and collaborating with patient's care team: 25 minutes. Charges/Coding Visit Charges Inpatient E&M: 91539 Subs Hosp L1
[2023-07-25] MEDS: Albuterol 2.5 MG/3 ML VIAL.NEB. INHALATION (19:17)
[2023-07-25] MEDS: Mirtazapine 15 MG Tablet PO (21:33)
[2023-07-25] MEDS: Atorvastatin Calcium 40 MG Tablet PO (21:34)
[2023-07-25] MEDS: Tamsulosin HCl 0.4 MG Capsule PO (21:34)
[2023-07-26 04:00] VITALS: BP 162/85; PULSE 70; RESP 18; TEMP 36.6; O2SAT 94
[2023-07-26 06:59] VITALS: O2SAT 94
[2023-07-26 08:38] VITALS: BP 170/109; PULSE 79; RESP 18; TEMP 36.6; O2SAT 87
[2023-07-26] MEDS: Enoxaparin 40 MG/0.4 ML Syringe SC (08:46)
[2023-07-26] MEDS: Finasteride 5 MG Tablet PO (08:47)
[2023-07-26] MEDS: Clopidogrel Bisulfate 75 MG Tablet PO (08:47)
[2023-07-26] MEDS: Ferrous Sulfate 325 MG Tablet PO (08:47)
[2023-07-26] MEDS: Pantoprazole Sodium 40 MG Tablet PO (08:47)
[2023-07-26 08:48] VITALS: PULSE 79
[2023-07-26] MEDS: Acetaminophen 500 MG Tablet 1000 MG PO ×2 (08:48→14:20)
[2023-07-26] MEDS: oxyCODONE 5 MG Tablet PO ×2 (08:48→14:20)
[2023-07-26] MEDS: Metoprolol Tartrate 25 MG Tablet PO (08:48)
[2023-07-26] MEDS: NIFEdipine 90 MG Tablet PO (08:49)
[2023-07-26] MEDS: Losartan Potassium 100 MG Tablet PO (08:50)
--- NOTE | 2023-07-26 10:07 | CPS ---
Susi RN called this RT to say that the patient was requesting a breathing treatment. Pt refused this morning for his treatment as well. I went into the room to give the Pt his ventolin as per Susi's call. Pt states I do not want them and they are not going to help me as i am dying, please dont ask anymore. I will send a Backline message to Dr Rocha to see about changing them to PRN incase the patient decided he would like to do them.
[2023-07-26] MEDS: Sertraline 100 MG Tablet PO (10:14)
[2023-07-26] MEDS: carBAMazepine 200 MG Tablet PO (10:14)
--- NOTE | 2023-07-26 10:29 | CASEMGMT ---
Social Work - APS referral Call to [facility] at [phone]. Message left for APS worker, Ramirez Adler to call this writer editor for referral. Social work following. VASILE Adamson
--- NOTE | 2023-07-26 11:35 | CASEMGMT ---
Discharge Planning [facility] has obtained auth. SW updated. Jacquie Michaud, Discharge Planning Asst.
[2023-07-26 12:10] VITALS: BP 107/59; PULSE 67; RESP 18; O2SAT 90
--- NOTE | 2023-07-26 12:12 | DCINST_ITS ---
Discharge Instructions Diet Discharge Diet: No restrictions Activity Discharge Activity: No Restrictions Weight Bearing Status: Weight bearing as tolerated Follow Up Care Test Results: Test results from this visit will be discussed in further detail at your follow- up appointment, if applicable. Discharge Plan Admission Admit Date/Time: 07/24/23 21:10 Primary Reason for Your Visit: fall with hip/pelvic pain Attending Provider: Roman Patel Primary Care Provider: Daija Douglas Consulting Providers: Андрей Cooley Discharge Orders/Prescriptions Prescriptions: New acetaminophen 500 mg Tablet 1,000 mg PO Q8 30 Days Qty: 0 0RF oxycodone 5 mg Tablet 5 mg PO Q4H PRN PRN (Reason: Pain Score 4-10) 7 Days Qty: 42 0RF Continued tamsulosin 0.4 MG capsule 0.4 mg PO QHS Patient Comments: Prostate and urine finasteride 5 MG tablet 5 mg PO DAILY Patient Comments: prostate atorvastatin 40 MG tablet 40 mg PO QHS Patient Comments: CHOLESTEROL sertraline 50 MG tablet 100 mg PO DAILY Patient Comments: depression mirtazapine 15 MG tablet 15 mg PO QHS clopidogrel 75 MG tablet 75 mg PO DAILY carbamazepine 200 MG tablet 200 mg PO Q12H Patient Comments: face pain losartan 100 mg tablet 100 mg PO DAILY pantoprazole 40 mg tablet,delayed release (DR/EC) 40 mg PO DAILY nifedipine 90 mg tablet extended release 90 mg PO DAILY nicotine 21 mg/24 hr Patch 24 Hour 21 mg transdermal DAILY Qty: 0 0RF alendronate 70 mg tablet 70 mg PO QWEEK Qty: 1 0RF metoprolol tartrate 25 mg tablet 25 mg PO DAILY albuterol sulfate 90 mcg/actuation HFA aerosol inhaler 1 puff INHALATION Q8H sennosides-docusate sodium [Stool Softener-Stimulant Laxat] 8.6-50 mg Tablet 2 tab PO BID PRN PRN (Reason: Constipation) Qty: 0 0RF Discontinued acetaminophen [Tylenol] 325 mg Tablet 650 mg PO Q6H PRN PRN (Reason: Pain 1-10 Or Fever) Qty: 0 0RF ferrous sulfate [FeroSul] 325 mg (65 mg iron) Tablet 325 mg PO BID Qty: 1 0RF ertapenem 1 gram Recon Soln 1 g IV Q24 7 Days Qty: 7 0RF Rx Instructions: dx: esbl ecoli uti weekly cmp and cbc while on iv abx. Fax to [phone] Referrals / Follow Up: Daija Douglas MD [Primary Care Provider] - Disposition Disposition (needs filled in before D/C Order can be placed): Nursing Home Facility
--- NOTE | 2023-07-26 12:18 | PCM.TXEXTCAR ---
Diet Diet Order/Speech Therapy: 07/24/23 21:54 Diet: Regular - General Food consistency:: Regular Liquid Consistency:: Regular/Thin Type of Dietary Supplement:: Ensure Plus High Protein Diet Comments: 240mL ensure plus HP w/ breakfast and dinner tray; magic cup w/ lunch Routine Orders/Code Status O2 Liters per Minute: 2 O2 Frequency: Continuous Keep PO Greater than or Equal to (%): 88 Code Status: Full Code Therapies Weight Bearing: Full weight bearing Extremity Affected:: Bilateral Lower Physical Therapy: Eval and Treat Occupational Therapy: Eval and Treat Problem/Diagnosis (1) Closed fracture of right superior pubic ramus: Status: Acute Code(s): S32.511A - Fracture of superior rim of right pubis, initial encounter for closed fracture (2) Closed fracture of right inferior pubic ramus: Status: Acute Code(s): S32.591A - Other specified fracture of right pubis, initial encounter for closed fracture (3) Inability to walk: Status: Acute Code(s): R26.2 - Difficulty in walking, not elsewhere classified Plan Patient is a 73 year old male who presented to [facility] ED on 07/24/2023 with hip and pelvic pain after a mechanical fall. Short hospital course as noted below. Patient discharged to care home facility in stable condition on 07/26. 1. Closed fractures of right superior and right inferior pubic ramus, acute on chronic debility ? PT/OT/case management followed. Treating pain with scheduled Tylenol and oxycodone as needed every 4 hours. Stable for discharge to skilled nurse facility. 2. Moderate to severe malnutrition - BMI 17 on admit, presented with pubic fractures after ground level mechanical fall. Thin and cachectic appearing. Nutrition followed, ensure added to meals while inpatient. Chronic medical conditions: - COPD with chronic hypoxic respiratory failure: On home 2L NC. Stable, not in acute exacerbation. Continue home inhalers. - Hypertension: Continue home lopressor, losartan, nifedipine. - BPH with LUTS: Continue home tamsulosin and finasteride. - Depression: Continue home sertraline and mirtazapine. - GERD: Continue home PPI. - History of CVA: Continue home plavix and statin. - Paroxysmal Afib: Continue home lopressor. Not on AC due to recurrent falls. Total clinical time spent by myself addressing the patient's discharge needs: 25 minutes. Allergies/Procedures Done in Hospital Allergies No Known Allergies Allergy (Verified 07/24/23 16:43) Procedures: - (Hip/pelvis x-ray) Type of Care/Length of Stay Estimated LOS: Convalescent Care Less Than 30 days Type of Care Needed: Skilled Rehab Potential: Fair Prognosis: Fair Additional Orders/Day of Discharge H&P will serve as current which was dated: 07/24/23 Day of Discharge: 07/26/23 Dietary and Speech Recommendations Dietitian Recommendations/Changes: Will continue liberalized regular diet and encouraged improved PO at meals. Will add 240mL ensure plus HP 2 times per day w/ breakfast and dinner meals. Will add magic cup w/ lunch meal. Monitor blood glucose given hx of DM noted. Discharge Plan Admission Admit Date/Time: 07/24/23 21:10 Primary Reason for Your Visit: fall with hip/pelvic pain Attending Provider: Roman Patel Primary Care Provider: Daija Douglas Consulting Providers: Андрей Cooley Discharge Orders/Prescriptions Prescriptions: New acetaminophen 500 mg Tablet 1,000 mg PO Q8 30 Days Qty: 0 0RF oxycodone 5 mg Tablet 5 mg PO Q4H PRN PRN (Reason: Pain Score 4-10) 7 Days Qty: 42 0RF Continued tamsulosin 0.4 MG capsule 0.4 mg PO QHS Patient Comments: Prostate and urine finasteride 5 MG tablet 5 mg PO DAILY Patient Comments: prostate atorvastatin 40 MG tablet 40 mg PO QHS Patient Comments: CHOLESTEROL sertraline 50 MG tablet 100 mg PO DAILY Patient Comments: depression mirtazapine 15 MG tablet 15 mg PO QHS clopidogrel 75 MG tablet 75 mg PO DAILY carbamazepine 200 MG tablet 200 mg PO Q12H Patient Comments: face pain losartan 100 mg tablet 100 mg PO DAILY pantoprazole 40 mg tablet,delayed release (DR/EC) 40 mg PO DAILY nifedipine 90 mg tablet extended release 90 mg PO DAILY nicotine 21 mg/24 hr Patch 24 Hour 21 mg transdermal DAILY Qty: 0 0RF alendronate 70 mg tablet 70 mg PO QWEEK Qty: 1 0RF metoprolol tartrate 25 mg tablet 25 mg PO DAILY albuterol sulfate 90 mcg/actuation HFA aerosol inhaler 1 puff INHALATION Q8H sennosides-docusate sodium [Stool Softener-Stimulant Laxat] 8.6-50 mg Tablet 2 tab PO BID PRN PRN (Reason: Constipation) Qty: 0 0RF Discontinued acetaminophen [Tylenol] 325 mg Tablet 650 mg PO Q6H PRN PRN (Reason: Pain 1-10 Or Fever) Qty: 0 0RF ferrous sulfate [FeroSul] 325 mg (65 mg iron) Tablet 325 mg PO BID Qty: 1 0RF ertapenem 1 gram Recon Soln 1 g IV Q24 7 Days Qty: 7 0RF Rx Instructions: dx: esbl ecoli uti weekly cmp and cbc while on iv abx. Fax to [phone] Referrals / Follow Up: Daija Douglas MD [Primary Care Provider] - Disposition Disposition (needs filled in before D/C Order can be placed): [facility] Facility Charges/Coding Visit Charges Inpatient E&M: 54452 Disch Hosp
--- NOTE | 2023-07-26 12:23 | DS.PCM_ITS ---
Providers Date of Admission: 07/24/23 Date of Discharge: 07/26/23 Primary Care Physician: Dr. Daija Douglas MD Reason For Visit: FALL WITH PUBIC RAMI FRACTURES Diagnosis Discharge Diagnosis (1) Closed fracture of right superior pubic ramus: Status: Acute Code(s): S32.511A - Fracture of superior rim of right pubis, initial encounter for closed fracture (2) Closed fracture of right inferior pubic ramus: Status: Acute Code(s): S32.591A - Other specified fracture of right pubis, initial encounter for closed fracture (3) Inability to walk: Status: Acute Code(s): R26.2 - Difficulty in walking, not elsewhere classified Medications at Discharge Home Medications tamsulosin 0.4 mg capsule 0.4 mg PO QHS bph 01/26/14 finasteride 5 mg tablet 5 mg PO DAILY prostate 11/14/14 atorvastatin 40 mg tablet 40 mg PO QHS Cholesterol 09/23/15 sertraline 50 mg tablet 100 mg PO DAILY mood stabilizer 12/02/15 mirtazapine 15 mg tablet 15 mg PO QHS anti depressant 08/16/19 clopidogrel 75 mg tablet 75 mg PO DAILY blood thinner 10/25/19 carbamazepine 200 mg tablet 200 mg PO Q12H Check with primary doctor 10/26/19 losartan 100 mg tablet 100 mg PO DAILY Blood pressure 08/19/21 pantoprazole 40 mg tablet,delayed release 40 mg PO DAILY GERD 08/19/21 nifedipine 90 mg tablet,extended release 90 mg PO DAILY blood pressure 11/25/21 alendronate 70 mg tablet 70 mg PO QWEEK #1 TAB 11/30/21 nicotine 21 mg/24 hr daily transdermal patch 21 mg transdermal DAILY #0 ea 11/30/21 albuterol sulfate 90 mcg/actuation aerosol inhaler 1 puff inhalation Q8H breathing 03/30/23 metoprolol tartrate 25 mg tablet 25 mg PO DAILY Blood pressure 03/30/23 sennosides 8.6 mg-docusate sodium 50 mg tablet (Stool Softener-Stimulant Laxative) 2 tab PO BID PRN PRN Constipation #0 tabs 04/04/23 acetaminophen 500 mg tablet 1,000 mg (2 x 500 mg) PO Q8 30 days #0 tabs 07/26/23 oxycodone 5 mg tablet 5 mg PO Q4H PRN PRN Pain Score 4-10 7 days #42 tabs 07/26/23 Hospital Course Operations None Procedures - (Hip/pelvis x-ray) Summary of Care Provided Minutes Spent on Discharge: 25 Hospital Course: Patient is a 73 year old male who presented to [facility] ED on 07/24/2023 with hip and pelvic pain after a mechanical fall. Short hospital course as noted below. Patient discharged to long term facility in stable condition on 07/26. 1. Closed fractures of right superior and right inferior pubic ramus, acute on chronic debility ? PT/OT/case management followed. Treating pain with scheduled Tylenol and oxycodone as needed every 4 hours. Stable for discharge to skilled nurse facility. 2. Moderate to severe malnutrition - BMI 17 on admit, presented with pubic fractures after ground level mechanical fall. Thin and cachectic appearing. Nutrition followed, ensure added to meals while inpatient. Chronic medical conditions: - COPD with chronic hypoxic respiratory failure: On home 2L NC. Stable, not in acute exacerbation. Continue home inhalers. - Hypertension: Continue home lopressor, losartan, nifedipine. - BPH with LUTS: Continue home tamsulosin and finasteride. - Depression: Continue home sertraline and mirtazapine. - GERD: Continue home PPI. - History of CVA: Continue home plavix and statin. - Paroxysmal Afib: Continue home lopressor. Not on AC due to recurrent falls. Total clinical time spent by myself addressing the patient's discharge needs: 25 minutes. Physical Exam Const alert and no apparent distress Constitutional Narrative: Elderely male, thin and cachetic appearing, sitting up comfortably in bed, short but appropriate responses to questions, no acute distress. General Appearance: cooperative HEENT normocephalic, head/scalp atraumatic, hearing grossly normal bilaterally and nasal mucous membranes and turbinates normal Eyes PERRL, EOMs intact bilaterally and conjunctivae normal Neck full ROM, no lymphadenopathy and supple Lymph Lymphatic: no lymphadenopathy noted Chest inspection of chest normal Resp normal respiratory effort, normal air movement, no use of accessory muscles and clear to auscultation bilaterally Cardio regular rate, regular rhythm, no murmurs and peripheral pulses 2+ throughout GI normal to inspection, nondistended, normoactive bowel sounds, soft to palpation, non-tender and non-distended Back/Spine Back/Spine Narrative: No gross abnormalities on visual exam. Extremity no pedal edema Extremity Narrative: No gross abnormalities of visual exam. Skin no rashes or lesions noted Neuro no focal motor deficits and no sensory deficits noted Speech: speech normal Psych mental status grossly normal Medical Records Data Medical Nutrition Assessment Dietitian: Malnutrition Criteria Met Start: 07/25/23 16:00 Freq: Status: Active Protocol: Document 07/25/23 16:16 RMA (Rec: 07/25/23 16:16 RMA [id number]) Nutrition Malnutrition Evidence of Malnutrition Exists Yes Malnutrition (severe): Chronic Evidenced By Suboptimal Energy Intake ( Severe),Weight Loss (Severe), Physical Changes (Severe) Clinical Problem Chronic Disease or Condition Related Malnutrition Etiology Severe protein-calorie malnutrition in the context of chronic disease related to inadequate oral/energy intake and increased energy expenditure related to respiratory disease Signs/Symptoms as evidenced by ~20% unintentional weight loss x less than 6 months, PO meeting less than 50% estimated nutrition needs x past 3-4 months, muscle wasting/fat depletion in the clavicle, arms, legs and BMI 17.4 Status Active Problem Recommendation Dietitian Recommendations/Changes Will continue liberalized regular diet and encouraged improved PO at meals. Will add 240mL ensure plus HP 2 times per day w/ breakfast and dinner meals. Will add magic cup w/ lunch meal. Monitor blood glucose given hx of DM noted. Weight / BMI Weight Weight: 51.846 kg Body Mass Index (BMI) 17.4 ABG / Lab / Microbiology Data 07/25/23 06:31 07/25/23 06:31 D/C Instructions Discharge Diet: No restrictions Weight Bearing Status: Weight bearing as tolerated Meaningful Use Info Meaningful Use Diagnoses (Choose all that apply): None applicable Discharge Plan Admission Admit Date/Time: 07/24/23 21:10 Primary Reason for Your Visit: fall with hip/pelvic pain Attending Provider: Roman Patel Primary Care Provider: Daija Douglas Consulting Providers: Андрей Cooley Discharge Orders/Prescriptions Prescriptions: New acetaminophen 500 mg Tablet 1,000 mg PO Q8 30 Days Qty: 0 0RF oxycodone 5 mg Tablet 5 mg PO Q4H PRN PRN (Reason: Pain Score 4-10) 7 Days Qty: 42 0RF Continued tamsulosin 0.4 MG capsule 0.4 mg PO QHS Patient Comments: Prostate and urine finasteride 5 MG tablet 5 mg PO DAILY Patient Comments: prostate atorvastatin 40 MG tablet 40 mg PO QHS Patient Comments: CHOLESTEROL sertraline 50 MG tablet 100 mg PO DAILY Patient Comments: depression mirtazapine 15 MG tablet 15 mg PO QHS clopidogrel 75 MG tablet 75 mg PO DAILY carbamazepine 200 MG tablet 200 mg PO Q12H Patient Comments: face pain losartan 100 mg tablet 100 mg PO DAILY pantoprazole 40 mg tablet,delayed release (DR/EC) 40 mg PO DAILY nifedipine 90 mg tablet extended release 90 mg PO DAILY nicotine 21 mg/24 hr Patch 24 Hour 21 mg transdermal DAILY Qty: 0 0RF alendronate 70 mg tablet 70 mg PO QWEEK Qty: 1 0RF metoprolol tartrate 25 mg tablet 25 mg PO DAILY albuterol sulfate 90 mcg/actuation HFA aerosol inhaler 1 puff INHALATION Q8H sennosides-docusate sodium [Stool Softener-Stimulant Laxat] 8.6-50 mg Tablet 2 tab PO BID PRN PRN (Reason: Constipation) Qty: 0 0RF Discontinued acetaminophen [Tylenol] 325 mg Tablet 650 mg PO Q6H PRN PRN (Reason: Pain 1-10 Or Fever) Qty: 0 0RF ferrous sulfate [FeroSul] 325 mg (65 mg iron) Tablet 325 mg PO BID Qty: 1 0RF ertapenem 1 gram Recon Soln 1 g IV Q24 7 Days Qty: 7 0RF Rx Instructions: dx: esbl ecoli uti weekly cmp and cbc while on iv abx. Fax to [phone] Referrals / Follow Up: Daija Douglas MD [Primary Care Provider] - Disposition Disposition (needs filled in before D/C Order can be placed): Long Term Facility Charges/Coding Visit Charges Inpatient E&M: 09358 Disch Hosp
--- NOTE | 2023-07-26 13:16 | CASEMGMT ---
Social Work Precert has been obtained for pt to be admitted to [facility]. Physician updated and pt is ready for discharge today. 7000 exemption form completed in [facility]. DC assistant boiler operator updated and to complete discharge. Disposition: [facility], skilled level of care under convalescent stay. SHANE Tinoco
--- NOTE | 2023-07-26 13:55 | CASEMGMT ---
Discharge Planning Discharge orders, signed med list, and transport time sent via [facility] to [facility]. Physicians will transport patient by cot at 3p. Nursing, SW, patient, and his listed next of kin updated. Jacquie Michaud, Discharge Planning Asst.
--- NOTE | 2023-07-26 14:19 | PHA.DC.MR.R ---
Pharmacy [place] Med Reconciliation Pharmacy Service has performed discharge medication reconciliation for this patient. The patient's discharge medication list was reviewed for discrepancies and discrepancies were resolved. Medications at Discharge Home Medications tamsulosin 0.4 mg capsule 0.4 mg PO QHS bph 01/26/14 finasteride 5 mg tablet 5 mg PO DAILY prostate 11/14/14 atorvastatin 40 mg tablet 40 mg PO QHS Cholesterol 09/23/15 sertraline 50 mg tablet 100 mg PO DAILY mood stabilizer 12/02/15 mirtazapine 15 mg tablet 15 mg PO QHS anti depressant 08/16/19 clopidogrel 75 mg tablet 75 mg PO DAILY blood thinner 10/25/19 carbamazepine 200 mg tablet 200 mg PO Q12H Check with primary doctor 10/26/19 losartan 100 mg tablet 100 mg PO DAILY Blood pressure 08/19/21 pantoprazole 40 mg tablet,delayed release 40 mg PO DAILY GERD 08/19/21 nifedipine 90 mg tablet,extended release 90 mg PO DAILY blood pressure 11/25/21 alendronate 70 mg tablet 70 mg PO QWEEK #1 TAB 11/30/21 nicotine 21 mg/24 hr daily transdermal patch 21 mg transdermal DAILY #0 ea 11/30/21 albuterol sulfate 90 mcg/actuation aerosol inhaler 1 puff inhalation Q8H breathing 03/30/23 metoprolol tartrate 25 mg tablet 25 mg PO DAILY Blood pressure 03/30/23 sennosides 8.6 mg-docusate sodium 50 mg tablet (Stool Softener-Stimulant Laxative) 2 tab PO BID PRN PRN Constipation #0 tabs 04/04/23 acetaminophen 500 mg tablet 1,000 mg (2 x 500 mg) PO Q8 30 days #0 tabs 07/26/23 oxycodone 5 mg tablet 5 mg PO Q4H PRN PRN Pain Score 4-10 7 days #42 tabs 07/26/23
== END 2023-07-26 15:32 | disposition skilled nursing facility (03) | DRG 535 ==
LOC: ED 20:57 → MS3 21:49
PROVIDERS: Admitting Provider Family Medicine; Emergency Provider Emergency Medicine; PCP Internal Medicine; Visit Provider Hospitalist
DX: S32.511A Fracture of superior rim of right pubis, initial encounter for closed fracture (principal); E43 Unspecified severe protein-calorie malnutrition; J96.11 Chronic respiratory failure with hypoxia; Z68.1 Body mass index [BMI] 19.9 or less, adult; Z99.81 Dependence on supplemental oxygen; I48.0 Paroxysmal atrial fibrillation; E11.9 Type 2 diabetes mellitus without complications; J44.9 Chronic obstructive pulmonary disease, unspecified; I10 Essential (primary) hypertension; F32.A Depression, unspecified; S32.591A Other specified fracture of right pubis, initial encounter for closed fracture; E78.00 Pure hypercholesterolemia, unspecified; F17.210 Nicotine dependence, cigarettes, uncomplicated; R26.2 Difficulty in walking, not elsewhere classified; K21.9 Gastro-esophageal reflux disease without esophagitis; W19.XXXA Unspecified fall, initial encounter; G47.30 Sleep apnea, unspecified; R53.1 Weakness; N40.1 Benign prostatic hyperplasia with lower urinary tract symptoms; Z79.51 Long term (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 of inhaled steroids; Z79.899 Other long term (current) drug therapy; Z86.73 Personal history of transient ischemic attack (TIA), and cerebral infarction without residual deficits; Z79.02 Long term (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 of antithrombotics/antiplatelets
CPT/HCPCS: 36415; 73502; 80048; 85025; 94640; 97163; 97166; 97530; 97535; 97802; 99285; 99406; A4216

== ENCOUNTER 2023-07-30 20:29 | Inpatient (IN) | payer MEDICARE, MEDICAID, SELFPAY ==
[2023-07-30] VITALS (11 sets, daily range): BP systolic 178–233; BP diastolic 80–101; PULSE 86–102; RESP 27–36; TEMP 37.2–37.6; O2SAT 84–100; BMI 24.2
--- NOTE | 2023-07-30 20:50 | EKG12_ITS ---
Test Reason : SOB Blood Pressure : / mmHG Vent. Rate : 089 BPM Atrial Rate : 000 BPM P-R Int : 000 ms QRS Dur : 080 ms QT Int : 336 ms P-R-T Axes : 000 065 083 degrees QTc Int : 408 ms Atrial fibrillation Abnormal ECG Confirmed by Juan Downey ([id number]), photographic editor RAE NATH ([id number]) on 08/01/2023 9:11:13 AM Referred By: DEANNA Confirmed By:Juan Downey
--- NOTE | 2023-07-30 20:56 | EDS_ITS ---
HPI <DIEGO Hopper - Last Filed: 07/30/23 22:27> History of Present Illness Chief Complaint: Shortness of Breath Narrative Narrative: Patient is a 73-year-old male with a long medical history including COPD on 3 to 5 L nasal cannula, history of recent pubic rami fracture, hypertension, history of ulcerative colitis, presenting to the emergency department for shortness of breath. Patient was admitted here on 24 July, discharged to a prison. Per the prison, the patient was more short of breath, tachypneic, and was wheezing more. Patient is alert and oriented to self. Patient is coarse, not answering to my questions. He is aggressive and is answering. I am not sure if this is his baseline. Patient's vital signs are stable on his 3 to 5 L of nasal cannula oxygen, patient is tachypneic. He does have audible wheezing. PFS <DIEGO Hopper - Last Filed: 07/30/23 22:27> [facility] Medical History Asthma Atrial fibrillation Chronic pain COPD (chronic obstructive pulmonary disease) COPD (chronic obstructive pulmonary disease) Depression Diabetes Falls frequently High cholesterol Hypertension Irregular heart beat Kidney stones On home oxygen therapy Pancreatitis Seizures Sleep apnea Smoker Stroke/cerebrovascular accident Home Medications tamsulosin 0.4 mg capsule 0.4 mg PO QHS bph 01/26/14 [History Last Taken 03/28/23] finasteride 5 mg tablet 5 mg PO DAILY prostate 11/14/14 [History Last Taken 03/28/23] atorvastatin 40 mg tablet 40 mg PO QHS Cholesterol 09/23/15 [History Last Taken 03/28/23] mirtazapine 15 mg tablet 15 mg PO QHS anti depressant 08/16/19 [History Last Taken 03/28/23] clopidogrel 75 mg tablet 75 mg PO DAILY blood thinner 10/25/19 [History Last Taken 03/28/23] carbamazepine 200 mg tablet 200 mg PO Q12H Check with primary doctor 10/26/19 [History Last Taken 03/28/23] losartan 100 mg tablet 100 mg PO DAILY Blood pressure 08/19/21 [History Last Taken 03/28/23] pantoprazole 40 mg tablet,delayed release 40 mg PO DAILY GERD 08/19/21 [History Last Taken 03/28/23] nifedipine 90 mg tablet,extended release 90 mg PO DAILY blood pressure 11/25/21 [History Last Taken 03/28/23] alendronate 70 mg tablet 70 mg PO QWEEK #1 TAB 11/30/21 [Rx Last Taken 03/28/23] nicotine 21 mg/24 hr daily transdermal patch 21 mg transdermal DAILY #0 ea 11/30/21 [Rx Last Taken 03/28/23] albuterol sulfate 90 mcg/actuation aerosol inhaler 1 puff inhalation Q8H breathing 03/30/23 [History Last Taken 03/28/23] metoprolol tartrate 25 mg tablet 25 mg PO DAILY Blood pressure 03/30/23 [History Last Taken 03/28/23] sennosides 8.6 mg-docusate sodium 50 mg tablet (Stool Softener-Stimulant Laxative) 2 tab PO BID PRN PRN Constipation #0 tabs 04/04/23 [Rx Last Taken Unknown] acetaminophen 500 mg tablet 1,000 mg (2 x 500 mg) PO Q8 30 days #0 tabs 07/26/23 [Rx Last Taken Unknown] oxycodone 5 mg tablet 5 mg PO Q4H PRN PRN Pain Score 4-10 7 days #42 tabs 07/26/23 [Rx Last Taken Unknown] Allergy/AdvReac Type Severity Reaction Status Date / Time No Known Allergies Allergy Verified 07/24/23 16:43 Family History Other Heart disease Surgical History History of appendectomy S/P arterial stent Social History household members: none Smoking Status: Current every day smoker tobacco type: cigarettes alcohol intake: former details: Former 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 <DIEGO Hopper - Last Filed: 07/30/23 22:27> ROS ED ROS Narrative When asked if the patient feels short of breath or if he has any complaints, he does not answer any questions. EXAM <DIEGO Hopper - Last Filed: 07/30/23 22:27> Physical Exam Narrative Exam Narrative: Vital signs reviewed. Patient's heart rate is 85, patient is 94 to 95% on 3 L. Patient is tachypneic. HEET: Head normocephalic atraumatic, TMs clear bilaterally. Posterior pharynx is clear, moist mucous membranes. Nares clear bilaterally. Neck: Supple with no lymphadenopathy or tenderness. No signs of meningismus. Cardiac: Regular rate and rhythm no murmurs gallops or rubs, equal peripheral pulses bilaterally. Respiratory: Patient has expiratory wheezing throughout pulmonary exam.. No chest tenderness. Abdomen: Soft, nontender, nondistended. No abdominal bruit or pulsatile masses. No hepatosplenomegaly Extremities: No peripheral edema, no signs of gross trauma or deformity. Active full range of motion of all extremities. Neuro: Cranial nerves II through XII intact, no focal neurological deficits. Skin: Clean dry and intact with no rash, purpura, petechiae, vesicles or pustules. Backs/flank: No CVA tenderness, no midline spinal tenderness, no deformity. Psych: Normal mood and affect. No SI, HI or acute psychosis. Const Vital Signs: 07/30/23 20:30 07/30/23 20:33 07/30/23 20:34 Temperature 99 F 99 F 99 F Temperature Source Temporal Temporal Temporal Pulse Rate 86 88 88 Respiratory Rate 35 H 33 H 30 H Respiratory Effort Respiratory Depth Respiratory Pattern Blood Pressure 178/101 H 178/101 H 178/101 H Blood Pressure Mean 126 126 126 Pulse Ox 95 95 95 Oxygen Delivery Method Nasal Cannula Nasal Cannula Nasal Cannula Oxygen Flow Rate (L/min) 3 3 3 07/30/23 20:36 07/30/23 20:56 07/30/23 21:15 Temperature Temperature Source Pulse Rate 90 Respiratory Rate 27 H Respiratory Effort Short of Breath Labored Respiratory Depth Normal Respiratory Pattern Tachypnea Blood Pressure 219/80 H Blood Pressure Mean 126 Pulse Ox 95 Oxygen Delivery Method Nasal Cannula Nasal Cannula Nasal Cannula Oxygen Flow Rate (L/min) 3 3 3 07/30/23 21:05 07/30/23 21:51 07/30/23 22:08 Temperature 99.7 F H Temperature Source Temporal Pulse Rate 95 101 H 96 Respiratory Rate 28 H 33 H 36 H Respiratory Effort Respiratory Depth Respiratory Pattern Tachypnea Tachypnea Blood Pressure 218/87 H Blood Pressure Mean 130 Pulse Ox 91 Oxygen Delivery Method Nasal Cannula Oxygen Flow Rate (L/min) 3 07/30/23 22:24 07/30/23 23:00 07/30/23 23:25 Temperature 99 F 99.4 F H 99 F Temperature Source Temporal Temporal Temporal Pulse Rate 101 H 96 102 H Respiratory Rate 30 H 36 H 33 H Respiratory Effort Respiratory Depth Respiratory Pattern Blood Pressure 233/90 H 219/85 H 219/85 H Blood Pressure Mean 137 129 129 Pulse Ox 94 84 100 Oxygen Delivery Method Nasal Cannula Room Air Nasal Cannula Oxygen Flow Rate (L/min) 3 3 <Dr. Huber Alvarado MD - Last Filed: 07/31/23 00:08> Physical Exam Const Vital Signs: 07/30/23 20:30 07/30/23 20:33 07/30/23 20:34 Temperature 99 F 99 F 99 F Temperature Source Temporal Temporal Temporal Pulse Rate 86 88 88 Respiratory Rate 35 H 33 H 30 H Respiratory Effort Respiratory Depth Respiratory Pattern Blood Pressure 178/101 H 178/101 H 178/101 H Blood Pressure Mean 126 126 126 Pulse Ox 95 95 95 Oxygen Delivery Method Nasal Cannula Nasal Cannula Nasal Cannula Oxygen Flow Rate (L/min) 3 3 3 07/30/23 20:36 07/30/23 20:56 07/30/23 21:15 Temperature Temperature Source Pulse Rate 90 Respiratory Rate 27 H Respiratory Effort Short of Breath Labored Respiratory Depth Normal Respiratory Pattern Tachypnea Blood Pressure 219/80 H Blood Pressure Mean 126 Pulse Ox 95 Oxygen Delivery Method Nasal Cannula Nasal Cannula Nasal Cannula Oxygen Flow Rate (L/min) 3 3 3 07/30/23 21:05 07/30/23 21:51 07/30/23 22:08 Temperature 99.7 F H Temperature Source Temporal Pulse Rate 95 101 H 96 Respiratory Rate 28 H 33 H 36 H Respiratory Effort Respiratory Depth Respiratory Pattern Tachypnea Tachypnea Blood Pressure 218/87 H Blood Pressure Mean 130 Pulse Ox 91 Oxygen Delivery Method Nasal Cannula Oxygen Flow Rate (L/min) 3 07/30/23 22:24 07/30/23 23:00 07/30/23 23:25 Temperature 99 F 99.4 F H 99 F Temperature Source Temporal Temporal Temporal Pulse Rate 101 H 96 102 H Respiratory Rate 30 H 36 H 33 H Respiratory Effort Respiratory Depth Respiratory Pattern Blood Pressure 233/90 H 219/85 H 219/85 H Blood Pressure Mean 137 129 129 Pulse Ox 94 84 100 Oxygen Delivery Method Nasal Cannula Room Air Nasal Cannula Oxygen Flow Rate (L/min) 3 3 MDM <Андрей Ng NP-C - Last Filed: 07/30/23 22:27> [facility] Lab Data Labs: Laboratory Results - last 24 hr 07/30/23 07/30/23 20:51 21:55 WBC 5.5 RBC 4.07 L Hgb 13.3 Hct 40.4 MCV 99.3 H MCH 32.7 H MCHC 32.9 RDW Std Deviation 48.3 H RDW Coeff of Aly 13.2 Plt Count 262 MPV 9.4 Immature Gran % (Auto) 0.500 Neut % (Auto) 76.5 H Lymph % (Auto) 10.9 L [place] % (Auto) 10.7 H Eos % (Auto) 0.5 Baso % (Auto) 0.9 Absolute Neuts (auto) 4.2 Absolute Lymphs (auto) 0.60 L Nucleated RBC % 0 Sodium 138 Potassium 4.2 Chloride 102 Carbon Dioxide 29.0 Anion Gap 7 BUN 26 H Creatinine 1.14 Estim Creat Clear Calc 55.00 Est GFR (MDRD) Af Amer 81 Est GFR (MDRD) Non-Af 67 BUN/Creatinine Ratio 22.8 H Glucose 114 H Calcium 9.2 Troponin I High Sens 15 B-Natriuretic Peptide 218.8 H Urine Color Yellow Urine Clarity Clear Urine pH 7.0 Ur Specific [place] 1.010 Urine Protein 30 H Urine Glucose (UA) Normal Urine Ketones Negative Urine Occult Blood 10 H Urine Nitrite Negative Urine Bilirubin Negative Urine Urobilinogen Normal Ur Leukocyte Esterase Negative Urine RBC 0 SEEN Urine WBC 0 SEEN Ur Squamous Epith Cells 0 SEEN Urine Bacteria 0 SEEN Urine Mucus 0 SEEN ABG Data ABG results: ABG 07/30/23 21:22 Specimen Type LASHAE Sample Site Not entered O2 % 3.0 VBG pH 7.36 VBG pO2 38 VBG HCO3 28 H VBG Total CO2 29 VBG O2 Sat (Calc) 69 VBG Base Excess 2 POC Mix VBG pCO2 Pt Tmp 48.6 O2 Delivery Device Cannula Radiography Diagnostic Testing: Clinical Impression(s) from Imaging Studies Brain CT 07/30/23 20:58 IMPRESSION: Age-related changes of the brain. Electronically Signed: Mario Cramer DO at 21:46 EST , Chest X-Ray 07/30/23 20:58 IMPRESSION: No radiographic evidence of acute cardiopulmonary disease. Electronically Signed: Mario Cramer DO at 21:10 EST , Treatment and Re-Evaluation :: Patient arrives in mild to moderate distress secondary to shortness of breath. Patient with 3 to 5 L is 94% however patient is tachypneic at a rate of 30. Patient's blood pressure is elevated over 200/100. Patient appears confused. Patient is moving all extremities. Currently at the prison after sustaining a pubic rami fracture. Differential diagnosis includes community- acquired pneumonia, sepsis, fever, metabolic encephalopathy, viral syndrome. Patient's chest x-ray showed no radiographic evidence of any acute cardiopulmonary disease. Patient's urinalysis showed patient's urinalysis was negative for any infection. Patient CT scan of the brain shows age-related changes. Patient's laboratory values show a normal CBC, patient's chemistries were unremarkable, troponin was negative, patient's proBNP was 218.8. Patient did receive a respiratory panel, patient was positive for influenza A. This does reflect the patient's dyspnea, altered mental status. He believe the patient need to be admitted to the hospital. <Dr. Huber Alvarado MD - Last Filed: 07/31/23 00:08> [facility] Narrative Medical decision making narrative: I have personally performed a face to face assessment of the patient and have reviewed the LUIS Note. I performed a substantive portion of the visit including all aspects of the following. My echevarria findings include: History: This patient was sent in by prison for increased blood pressure and increased dyspnea today. There is a report of a fever although I am not finding what that level was. Patient does admit that he is short of breath. He thinks it is a day or 2 but he is not a good informant for details. He seems a little bit confused that waxes and wanes. But he is not hypoxic. I have talked to some of the nurses here who knows him and evidently this is really not significantly far off his baseline. Exam: Patient is awake and alert. He is breathing quickly but he does not look markedly dyspneic. His saturations are good. But he is extremely tight and wheezing. Significant AP diameter increase with chronic COPD and extensive inspiratory and expiratory wheezes. Heart is regular at about 90. Abdomen is soft and nontender. I did not press on the pelvic areas as he has known fractures. Medical Decision Making: Patient is giving breathing treatments. He is still wheezing significantly after that. He is given steroids. I did end up giving him Ativan. Evidently he has some sundowning which she was getting a little combative. But he was not hypoxic with this. Blood pressure is also up. I do not know if he got his metoprolol or nifedipine or losartan today. He was given hydralazine here and it has helped. Chest x-ray shows no acute process. CT of the head was done because we were not sure if he had had a change in mental status but evidently he is about his baseline. And he had had recent falls and hospitalization. Patient is still wheezing quite a bit. I do not think this would be tolerated at the prison. He is tachypneic but not tachycardic. He is not saturating. I believe his influenza A and severe COPD with wheezing does explain the tachypnea. Lab Data Labs: Laboratory Results - last 24 hr 07/30/23 07/30/23 20:51 21:55 WBC 5.5 RBC 4.07 L Hgb 13.3 Hct 40.4 MCV 99.3 H MCH 32.7 H MCHC 32.9 RDW Std Deviation 48.3 H RDW Coeff of Aly 13.2 Plt Count 262 MPV 9.4 Immature Gran % (Auto) 0.500 Neut % (Auto) 76.5 H Lymph % (Auto) 10.9 L [place] % (Auto) 10.7 H Eos % (Auto) 0.5 Baso % (Auto) 0.9 Absolute Neuts (auto) 4.2 Absolute Lymphs (auto) 0.60 L Nucleated RBC % 0 Sodium 138 Potassium 4.2 Chloride 102 Carbon Dioxide 29.0 Anion Gap 7 BUN 26 H Creatinine 1.14 Estim Creat Clear Calc 55.00 Est GFR (MDRD) Af Amer 81 Est GFR (MDRD) Non-Af 67 BUN/Creatinine Ratio 22.8 H Glucose 114 H Calcium 9.2 Troponin I High Sens 15 B-Natriuretic Peptide 218.8 H Urine Color Yellow Urine Clarity Clear Urine pH 7.0 Ur Specific [place] 1.010 Urine Protein 30 H Urine Glucose (UA) Normal Urine Ketones Negative Urine Occult Blood 10 H Urine Nitrite Negative Urine Bilirubin Negative Urine Urobilinogen Normal Ur Leukocyte Esterase Negative Urine RBC 0 SEEN Urine WBC 0 SEEN Ur Squamous Epith Cells 0 SEEN Urine Bacteria 0 SEEN Urine Mucus 0 SEEN ABG Data ABG results: ABG 07/30/23 21:22 Specimen Type LASHAE Sample Site Not entered O2 % 3.0 VBG pH 7.36 VBG pO2 38 VBG HCO3 28 H VBG Total CO2 29 VBG O2 Sat (Calc) 69 VBG Base Excess 2 POC Mix VBG pCO2 Pt Tmp 48.6 O2 Delivery Device Cannula Radiography Diagnostic Testing: Clinical Impression(s) from Imaging Studies Brain CT 07/30/23 20:58 IMPRESSION: Age-related changes of the brain. Electronically Signed: Mario Cramer DO at 21:46 EST , Chest X-Ray 07/30/23 20:58 IMPRESSION: No radiographic evidence of acute cardiopulmonary disease. Electronically Signed: Mario Cramer DO at 21:10 EST , Discharge Plan Dx/Rx/DC Orders Clinical Impression: Acute dyspnea, Hypertension, Acute metabolic encephalopathy, Influenza A, COPD with acute exacerbation Disposition Disposition: Acute Care [facility]
--- NOTE | 2023-07-30 20:58 | RAD_ITS ---
INDICATION: cough EXAMINATION/TECHNIQUE: X-RAY - XR Chest 1 View COMPARISON: March 30, 2023 FINDINGS: LINES/DEVICES: None. LUNGS: No consolidation, edema or effusion. No pneumothorax. MEDIASTINUM AND CARDIOVASCULAR STRUCTURES: Cardiac silhouette not enlarged. Calcified aortic arch. Central airways and mediastinal contour are unremarkable. BONES AND SOFT TISSUES: Degenerative vertebral changes. RAD/Chest 1 View (Portable) IMPRESSION: No radiographic evidence of acute cardiopulmonary disease. Electronically Signed: Mario Cramer DO at 21:10 EST ,
--- NOTE | 2023-07-30 20:58 | CT_ITS ---
STUDY: CT BRAIN WITHOUT CONTRAST REASON FOR EXAM: Male, 73 years old. altered mental status RADIATION DOSAGE (If Supplied By Facility): CTDIvol = ( 44.99 ) mGy, DLP = ( 829.85 ) mGycm TECHNIQUE: Transaxial CT imaging of the brain was performed without administration of intravenous contrast material. Individualized dose optimization techniques were used for this CT. COMPARISON: No relevant priors. FINDINGS: Normal soft tissue structures. Normal calvarium. Normal size ventricles and extra-axial spaces for the patient''s age. Bilateral white matter microangiopathic ischemic changes of the cerebral hemispheres. Normal basal ganglia and thalami. Normal brainstem. Normal cerebellum. There is no intracranial hemorrhage. There are no findings of an acute ischemic infarction. Normal visualized paranasal sinuses. CT/Brain/Head without Contrast IMPRESSION: Age-related changes of the brain. Electronically Signed: Mario Cramer DO at 21:46 EST ,
[2023-07-30 21:05] LABS: Absolute Neutrophil Count 4.2 X10^3/uL (2.0-7.7); Basophil# 0.05 X10^3/uL; Basophil% 0.9 % (0-1); Eosinophil# 0.03 X10^3/uL; Eosinophils% 0.5 % (0-5); Hematocrit 40.4 % (40-54); Hemoglobin 13.3 g/dL (13.0-16.5); Lymphocyte % 10.9 % (19-41); Mean Corp Hgb Conc 32.9 g/dL (32-36); Mean Corpuscular Hgb 32.7 pg (27.0-32.0); Mean Corpuscular Volume 99.3 fL (80-94); Mean Platelet Vol. 9.4 fl (6.2-12.0); Monocyte# 0.59 X10^3/uL; Monocyte% 10.7 % (0-10); NRBC Flagged by Analyzer 0 % (0-5); Neutrophil # 4.19 X10^3/uL (2.7-7.7); Neutrophil % 76.5 % (47-70); POSITIVE DIFFERENTIAL YES; Platelet Count 262 K/mm3 (150-450); RBC Distribution Width CV 13.2 % (11.6-14.6); RBC Distribution Width SD 48.3 fl (35.1-43.9); Red Blood Count 4.07 M/mm3 (4.6-6.2); White Blood Count 5.5 K/mm3 (4.4-11.0)
[2023-07-30] MEDS: MethylPREDNISolone 125 MG/2 ML Vial 60 MG IV (21:07)
[2023-07-30] MEDS: Albuterol 2.5 MG/3 ML VIAL.NEB. INHALATION ×2 (21:07→22:08)
[2023-07-30] MEDS: Ipratropium/Albuterol Sulfate 3 ML AMPUL.NEB INHALATION (21:07)
[2023-07-30] MEDS: 0.9% Normal Saline (1000mL) 1,000 ML 999 ML IV (21:07)
[2023-07-30 21:26] LABS: Anion Gap 7 (5-15); BUN 26 mg/dL (7-18); BUN/Creat Ratio 22.8 RATIO (10-20); Calcium,Total 9.2 mg/dL (8.5-10.1); Chloride 102 mmol/L (98-107); Creatinine, Serum 1.14 mg/dL (0.70-1.30); EST Glomerular Filtration Rate 67 mL/min (>60); Est Glom Filt Rate - Afr Amer 81 mL/min (>60); Glucose 114 mg/dL (74-106); Potassium 4.2 mmol/L (3.5-5.1); Sodium Level 138 mmol/L (136-145); Troponin-I HS 15 pg/mL (3.0-78.0)
[2023-07-30 21:26] LABS: Blood Gas Specimen Type VEN; O2 Delivery Device Cannula; SITE Not entered; VBG BASE EXCESS 2 mmol/L (-1.0-3.5); VBG Bicarbonate 28 mmol/L (22-26); VBG PO2 38 mmHg (25-40); VBG SO2 69 % (50-70); VBG TCO2 29 mmol/L (23-33); VBG pCO2 48.6 mmHg (41-51); VBG pH 7.36 (7.32-7.42)
[2023-07-30] MEDS: hydrALAZINE 20 MG/ML Vial 10 MG IV (21:35)
[2023-07-30 21:39] LABS: BNP,B-Type NATRIURETIC PEPTIDE 218.8 pg/mL (0-100)
[2023-07-30 22:01] LABS: Bacteria 0 SEEN /hpf (None Seen); Mucous, Urine 0 SEEN /hpf (<or=2+); Red Blood Cells-Urine 0 SEEN /hpf (0-5); Squamous Epithelial Cells - UA 0 SEEN /hpf (0-5); White Blood Cells 0 SEEN /hpf (0-5)
[2023-07-30 22:05] LABS: Color, Urine Yellow (Yellow); Glucose, Dipstick Normal (Normal); Ketone-Dipstick Negative (Negative); Leukocyte Esterase-Dipstick Negative /ul (Negative); Nitrite-Dipstick Negative (Negative); Occult Blood-Urine 10 /ul (Negative); Protein-Dipstick 30 mg/dl (Negative); Urine Bilirubin Dipstick Negative (Negative); Urine Clarity Clear (Clear); Urine Urobilinogen Normal (Normal)
[2023-07-30] MEDS: hydrALAZINE 20 MG/ML Vial IV (23:18)
[2023-07-30] MEDS: Lorazepam 2 MG/ML WCH Syringe 1 MG IV (23:19)
--- NOTE | 2023-07-30 23:21 | ED.RN ---
Patient is refusing to wear oxygen. This RN educated him on the reason why he needs it and he replied with let me , that's okay . RN informed the physician and appropriate meds were given.
--- NOTE | 2023-07-30 23:47 | PCM.HP.STD ---
HPI - General General Date of Admission: 07/30/23 Date of Service: 07/30/23 Chief Complaint: Shortness of breath and wheezing for about 4 days. Confused and disoriented. HPI Narrative PEDRO PABLO SIERRA, is a 73 M with history of COPD on 3 to 5 L of oxygen from [facility] came to ED for shortness of breath along with wheezing and cough. alf, patient was febrile. Patient was found tachypneic and short of breath. He is confused, agitated and trying to pull out IV line and monitor wires therefore complete history unobtainable. Patient could not give chronological orders of his symptoms and timeline. Denies any chest pain but might have congestion. In ED, he was found to have high blood pressure 178/101, tachypneic. One-time blood pressure also recorded 233/90. Patient found to have flu positive. Patient was given Solu-Medrol, Tamiflu, DuoNeb nebulization in ED along with hydralazine 20 mg IV. Patient is further admitted [facility] Medical History Asthma Atrial fibrillation Chronic pain COPD (chronic obstructive pulmonary disease) COPD (chronic obstructive pulmonary disease) Depression Diabetes Falls frequently High cholesterol Hypertension Irregular heart beat Kidney stones On home oxygen therapy Pancreatitis Seizures Sleep apnea Smoker Stroke/cerebrovascular accident Home Medications tamsulosin 0.4 mg capsule 0.4 mg PO QHS bph 01/26/14 [History Last Taken 03/28/23] finasteride 5 mg tablet 5 mg PO DAILY prostate 11/14/14 [History Last Taken 03/28/23] atorvastatin 40 mg tablet 40 mg PO QHS Cholesterol 09/23/15 [History Last Taken 03/28/23] mirtazapine 15 mg tablet 15 mg PO QHS anti depressant 08/16/19 [History Last Taken 03/28/23] clopidogrel 75 mg tablet 75 mg PO DAILY blood thinner 10/25/19 [History Last Taken 03/28/23] carbamazepine 200 mg tablet 200 mg PO Q12H Check with primary doctor 10/26/19 [History Last Taken 03/28/23] losartan 100 mg tablet 100 mg PO DAILY Blood pressure 08/19/21 [History Last Taken 03/28/23] pantoprazole 40 mg tablet,delayed release 40 mg PO DAILY GERD 08/19/21 [History Last Taken 03/28/23] nifedipine 90 mg tablet,extended release 90 mg PO DAILY blood pressure 11/25/21 [History Last Taken 03/28/23] alendronate 70 mg tablet 70 mg PO QWEEK #1 TAB 11/30/21 [Rx Last Taken 03/28/23] nicotine 21 mg/24 hr daily transdermal patch 21 mg transdermal DAILY #0 ea 11/30/21 [Rx Last Taken 03/28/23] albuterol sulfate 90 mcg/actuation aerosol inhaler 1 puff inhalation Q8H breathing 03/30/23 [History Last Taken 03/28/23] metoprolol tartrate 25 mg tablet 25 mg PO DAILY Blood pressure 03/30/23 [History Last Taken 03/28/23] sennosides 8.6 mg-docusate sodium 50 mg tablet (Stool Softener-Stimulant Laxative) 2 tab PO BID PRN PRN Constipation #0 tabs 04/04/23 [Rx Last Taken Unknown] acetaminophen 500 mg tablet 1,000 mg (2 x 500 mg) PO Q8 30 days #0 tabs 07/26/23 [Rx Last Taken Unknown] oxycodone 5 mg tablet 5 mg PO Q4H PRN PRN Pain Score 4-10 7 days #42 tabs 07/26/23 [Rx Last Taken Unknown] Allergy/AdvReac Type Severity Reaction Status Date / Time No Known Allergies Allergy Verified 07/24/23 16:43 Family History Other Heart disease Surgical History History of appendectomy S/P arterial stent Social History household members: none Smoking Status: Current every day smoker tobacco type: cigarettes alcohol intake: former details: Former 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 ROS Narrative 14 system ROS unobtainable as patient is very confused and disoriented, agitated. In delirium Review of Systems ROS Unobtainable: due to encephalopathy and due to mental condition Vital Signs Vital Signs Vital Signs: 07/30/23 20:30 07/30/23 20:33 07/30/23 20:34 Temperature 99 F 99 F 99 F Temperature Source Temporal Temporal Temporal Pulse Rate 86 88 88 Respiratory Rate 35 H 33 H 30 H Respiratory Effort Respiratory Depth Respiratory Pattern Blood Pressure 178/101 H 178/101 H 178/101 H Blood Pressure Mean 126 126 126 Pulse Ox 95 95 95 Oxygen Delivery Method Nasal Cannula Nasal Cannula Nasal Cannula Oxygen Flow Rate (L/min) 3 3 3 07/30/23 20:36 07/30/23 20:56 07/30/23 21:15 Temperature Temperature Source Pulse Rate 90 Respiratory Rate 27 H Respiratory Effort Short of Breath Labored Respiratory Depth Normal Respiratory Pattern Tachypnea Blood Pressure 219/80 H Blood Pressure Mean 126 Pulse Ox 95 Oxygen Delivery Method Nasal Cannula Nasal Cannula Nasal Cannula Oxygen Flow Rate (L/min) 3 3 3 07/30/23 21:05 07/30/23 21:51 07/30/23 22:08 Temperature 99.7 F H Temperature Source Temporal Pulse Rate 95 101 H 96 Respiratory Rate 28 H 33 H 36 H Respiratory Effort Respiratory Depth Respiratory Pattern Tachypnea Tachypnea Blood Pressure 218/87 H Blood Pressure Mean 130 Pulse Ox 91 Oxygen Delivery Method Nasal Cannula Oxygen Flow Rate (L/min) 3 07/30/23 22:24 07/30/23 23:00 07/30/23 23:25 Temperature 99 F 99.4 F H 99 F Temperature Source Temporal Temporal Temporal Pulse Rate 101 H 96 102 H Respiratory Rate 30 H 36 H 33 H Respiratory Effort Respiratory Depth Respiratory Pattern Blood Pressure 233/90 H 219/85 H 219/85 H Blood Pressure Mean 137 129 129 Pulse Ox 94 84 100 Oxygen Delivery Method Nasal Cannula Room Air Nasal Cannula Oxygen Flow Rate (L/min) 3 3 Weight Weight: 159 lb 6.307 oz Body Mass Index (BMI) 24.2 Physical Exam Narrative General: Awake, hyperactive, disoriented to time place and person. HEENT: Atraumatic, PERRLA, EOMI, Normocephalic Oral: Oral mucosa dry. No Gingival or Mucosal Lesions/ Ulcerations Neck: Supple, No JVD, Negative Carotid Bruits Chest wall/Lungs: Air entry severely diminished in all lung batres. Tachypneic, bilateral wheezing. Cardiovascular: Regular rate, Regular Rhythm, Normal S1, Normal S2, No M/G/R Abdomen: Bowel Sounds Present, Soft, Non Tender, Non-Distended : No dysuria. No renal angle tenderness. No suprapubic tenderness. Extremities: No edema, Capillary Refill Less than 3 Seconds Skin: No rashes, No breakdown Musculoskeletal: No Tenderness to Palpation of Joints or Extremities Neurological: Cranial nerves II-XII grossly intact, DTR 2+/4. No acute focal neurological deficit. Psych/Mental Status: Inattention, disoriented, hyperactive agitated, delirium. Results Lab / Micro Data 07/30/23 20:51 07/30/23 20:51 Labs: Laboratory Results - last 24 hr 07/30/23 20:51: WBC 5.5, RBC 4.07 L, Hgb 13.3, Hct 40.4, MCV 99.3 H, MCH 32.7 H, MCHC 32.9, RDW Std Deviation 48.3 H, RDW Coeff of Aly 13.2, Plt Count 262, MPV 9.4, Immature Gran % (Auto) 0.500, Neut % (Auto) 76.5 H, Lymph % (Auto) 10.9 L, [place] % (Auto) 10.7 H, Eos % (Auto) 0.5, Baso % (Auto) 0.9, Absolute Neuts (auto) 4.2, Absolute Lymphs (auto) 0.60 L, Nucleated RBC % 0, Sodium 138, Potassium 4.2, Chloride 102, Carbon Dioxide 29.0, Anion Gap 7, BUN 26 H, Creatinine 1.14, Estim Creat Clear Calc 55.00, Est GFR (MDRD) Af Amer 81, Est GFR (MDRD) Non-Af 67, BUN/Creatinine Ratio 22.8 H, Glucose 114 H, Calcium 9.2, Troponin I High Sens 15, B-Natriuretic Peptide 218.8 H 07/30/23 21:55: Urine Color Yellow, Urine Clarity Clear, Urine pH 7.0, Ur Specific [place] 1.010, Urine Protein 30 H, Urine Glucose (UA) Normal, Urine Ketones Negative, Urine Occult Blood 10 H, Urine Nitrite Negative, Urine Bilirubin Negative, Urine Urobilinogen Normal, Ur Leukocyte Esterase Negative, Urine RBC 0 SEEN, Urine WBC 0 SEEN, Ur Squamous Epith Cells 0 SEEN, Urine Bacteria 0 SEEN, Urine Mucus 0 SEEN Micro: Microbiology 07/30/23 21:12 Mucosa - Nose SARS-CoV-2, Influenza & RSV (PCR) - Final Influenzae A ABG Data ABG results: ABG 07/30/23 21:22 Specimen Type LASHAE Sample Site Not entered O2 % 3.0 VBG pH 7.36 VBG pO2 38 VBG HCO3 28 H VBG Total CO2 29 VBG O2 Sat (Calc) 69 VBG Base Excess 2 POC Mix VBG pCO2 Pt Tmp 48.6 O2 Delivery Device Cannula Imaging Radiology Impression Brain CT 07/30/23 20:58 IMPRESSION: Age-related changes of the brain. Electronically Signed: Mario Cramer, DO at 21:46 EST , Chest X-Ray 07/30/23 20:58 IMPRESSION: No radiographic evidence of acute cardiopulmonary disease. Electronically Signed: Mario Cramer DO at 21:10 EST , Assessment & Plan Assessment/Plan (1) COPD with acute exacerbation: (2) Influenza A: (3) Acute metabolic encephalopathy: PLAN: Plan This is 73 old gentleman being admitted for multiple reasons including shortness of breath, tachypnea, wheezing suggestive of COPD exacerbation due to influenza A, acute encephalopathy and hypertensive urgency 1. COPD exacerbation from influenza A: Patient is being admitted in PCU. Chest x-ray initially reviewed and does not show acute infiltrate but bilateral interstitial markings. Patient is started on Tamiflu. Patient is being managed on scheduled bronchodilator, IV Solu-Medrol, Mucinex, incentive spirometry and Pep. Zithromax 500 mg daily added 2. Acute encephalopathy most likely due to infectious/metabolic encephalopathy: Treat the underlying disorder. Avoid benzodiazepines. Orientation cues. If at all needed can use low-dose Haldol. 3. Hypertensive urgency: Blood pressure very high. Patient was given hydralazine in the ED. Resume home medications metoprolol losartan and nifedipine. IV labetalol and hydralazine as needed for hypertensive urgency. 4. Recent closed fracture of right superior pubic ramus: Patient was admitted between July 24 to for fall and pubic rami fracture of right side. 5. Moderate to severe chronic malnutrition: [employer] Up [employer] consult. Nutritional supplement. 6. History of paroxysmal A-fib: Not on anticoagulant due to history of recurrent fall. On metoprolol. 7. Multiple other chronic comorbidities include BPH with with history of [place], on tamsulosin and finasteride, depression, GERD, history of CVA: Patient on Plavix and statin, PPI. Continue sertraline and mirtazapine. Advanced directive/living will/CODE STATUS: Cannot be ascertained patient is confused and oriented. Full code unverified. Microbiology Past 72 Hours 07/30/23 21:12 Mucosa - Nose SARS-CoV-2, Influenza & RSV (PCR) - Final Influenzae A Laboratory Results 07/30/23 20:51: WBC 5.5, RBC 4.07 L, Hgb 13.3, Hct 40.4, MCV 99.3 H, MCH 32.7 H, MCHC 32.9, RDW Std Deviation 48.3 H, RDW Coeff of Aly 13.2, Plt Count 262, MPV 9.4, Immature Gran % (Auto) 0.500, Neut % (Auto) 76.5 H, Lymph % (Auto) 10.9 L, [place] % (Auto) 10.7 H, Eos % (Auto) 0.5, Baso % (Auto) 0.9, Absolute Neuts (auto) 4.2, Absolute Lymphs (auto) 0.60 L, Nucleated RBC % 0, Sodium 138, Potassium 4.2, Chloride 102, Carbon Dioxide 29.0, Anion Gap 7, BUN 26 H, Creatinine 1.14, Estim Creat Clear Calc 55.00, Est GFR (MDRD) Af Amer 81, Est GFR (MDRD) Non-Af 67, BUN/Creatinine Ratio 22.8 H, Glucose 114 H, Calcium 9.2, Troponin I High Sens 15, B-Natriuretic Peptide 218.8 H 07/30/23 21:22: Specimen Type LASHAE, Sample Site Not entered, O2 % 3.0, VBG pH 7.36, VBG pO2 38, VBG HCO3 28 H, VBG Total CO2 29, VBG O2 Sat (Calc) 69, VBG Base Excess 2, POC Mix VBG pCO2 Pt Tmp 48.6, O2 Delivery Device Cannula 07/30/23 21:55: Urine Color Yellow, Urine Clarity Clear, Urine pH 7.0, Ur Specific [place] 1.010, Urine Protein 30 H, Urine Glucose (UA) Normal, Urine Ketones Negative, Urine Occult Blood 10 H, Urine Nitrite Negative, Urine Bilirubin Negative, Urine Urobilinogen Normal, Ur Leukocyte Esterase Negative, Urine RBC 0 SEEN, Urine WBC 0 SEEN, Ur Squamous Epith Cells 0 SEEN, Urine Bacteria 0 SEEN, Urine Mucus 0 SEEN Clinical Impression(s) from Imaging Studies Brain CT 07/30/23 20:58 IMPRESSION: Age-related changes of the brain. Chest X-Ray 07/30/23 20:58 IMPRESSION: No radiographic evidence of acute cardiopulmonary disease. Electronically Signed: Mario Cramer DO at 21:10 EST Reading Location ID and State: [facility] / [place] Tel [phone], Service support , Charges/Coding Visit Charges Inpatient E&M: 42125 Init Hosp L3
[2023-07-31] VITALS (31 sets, daily range): BP systolic 123–208; BP diastolic 59–161; PULSE 66–115; RESP 16–39; TEMP 36.2–37.5; O2SAT 92–98; BMI 22.4
--- NOTE | 2023-07-31 00:04 | ED.RN ---
Patient is refusing to wear his blood pressure cuff, oxygen, and pulse ox. RT was called to humidify his oxygen in hopes that he would wear it again.
[2023-07-31] MEDS: Labetalol (Prefilled) 20 MG/4 ML IV (01:39)
[2023-07-31] MEDS: 0.9% Saline Lock 10 ML Syringe IV ×3 (01:42→20:14)
--- NOTE | 2023-07-31 02:55 | NURSING ---
This RN placed pt's ring and watch in denture cup w/ pt label. Cup then placed in patient med drawer and locked up.
--- NOTE | 2023-07-31 03:01 | NURSING ---
0300- pt placed in restraints at this time by this RN and Vonda Erickson RN. Pt continuously pulling leads, oxygen and primofit off. Not able to be redirected despite distraction and consistent verbal de-escalation and explanation
--- NOTE | 2023-07-31 03:04 | NURSING ---
0304- physician notified of restraint application by this RN
[2023-07-31 06:39] LABS: Absolute Lymphocyte Count 0.39 X10^3/uL (0.83-4.51); Absolute Neutrophil Count 4.7 X10^3/uL (2.0-7.7); Basophil# 0.02 X10^3/uL; Basophil% 0.4 % (0-1); Hematocrit 37.9 % (40-54); Hemoglobin 12.6 g/dL (13.0-16.5); Lymphocyte # 0.39 X10^3/ul (0.83-4.51); Lymphocyte % 7.1 % (19-41); Mean Corp Hgb Conc 33.2 g/dL (32-36); Mean Corpuscular Hgb 32.7 pg (27.0-32.0); Mean Corpuscular Volume 98.4 fL (80-94); Mean Platelet Vol. 10.1 fl (6.2-12.0); Monocyte# 0.39 X10^3/uL; Monocyte% 7.1 % (0-10); NRBC Flagged by Analyzer 0 % (0-5); Neutrophil # 4.65 X10^3/uL (2.7-7.7); POSITIVE DIFFERENTIAL YES; Platelet Count 284 K/mm3 (150-450); RBC Distribution Width CV 13.2 % (11.6-14.6); RBC Distribution Width SD 47.2 fl (35.1-43.9); Red Blood Count 3.85 M/mm3 (4.6-6.2); White Blood Count 5.5 K/mm3 (4.4-11.0)
[2023-07-31 06:45] LABS: Anion Gap 8 (5-15); BUN 23 mg/dL (7-18); BUN/Creat Ratio 22.8 RATIO (10-20); Calcium,Total 8.6 mg/dL (8.5-10.1); Chloride 102 mmol/L (98-107); Creatinine, Serum 1.01 mg/dL (0.70-1.30); EST Glomerular Filtration Rate 77 mL/min (>60); Est Glom Filt Rate - Afr Amer 93 mL/min (>60); Glucose 113 mg/dL (74-106); Sodium Level 139 mmol/L (136-145)
[2023-07-31] MEDS: Ipratropium/Albuterol Sulfate 3 ML AMPUL.NEB INHALATION ×5 (07:10→23:03)
[2023-07-31] MEDS: Oseltamivir Phosphate 75 MG Capsule PO ×2 (10:18→20:14)
[2023-07-31] MEDS: guaiFENesin 1,200 MG Tablet 1200 MG PO ×2 (10:18→20:13)
--- NOTE | 2023-07-31 13:37 | CASEMGMT ---
Patient is from [facility] skilled. SW met with patient, introduced self and role at [facility]. Patient confirmed his plan is to return to [facility] at discharge. Plan: d/c back to [facility] when medically ready and insurance approves. Mago TOWNSEND
[2023-07-31] MEDS: NIFEdipine 90 MG Tablet PO (16:49)
[2023-07-31] MEDS: Losartan Potassium 100 MG Tablet PO (16:49)
[2023-07-31] MEDS: guaiFENesin Dm 10 ML UDC PO (16:49)
[2023-07-31] MEDS: oxyCODONE 5 MG Tablet PO ×2 (16:49→23:15)
[2023-07-31] MEDS: hydroCHLOROthiazide 12.5mg 12.5 MG PO (16:49)
--- NOTE | 2023-07-31 16:54 | PCM.PN.HOSP ---
Reason for Visit Reason for Visit: Diagnoses Metabolic encephalopathy (07/30/23) Influenza due to other identified influenza virus with other respiratory manifestations (07/30/23) Chronic obstructive pulmonary disease with (acute) exacerbation (07/30/23) Subjective Subjective Patient was seen and examined today, this afternoon he is alert and appropriate and is able to take orals. Objective Data Objective Data Vital Signs: Vital Signs Temp Pulse Resp BP Pulse Ox O2 Del Method O2 Flow Rate 98.8 F 92 24 H 189/84 H 93 Nasal Cannula 2 07/31/23 12:00 07/31/23 16:00 07/31/23 16:00 07/31/23 16:00 07/31/23 16:00 07/31/23 16:00 07/31/23 16:00 Oxygen Flow Rate (L/min) 2 Oxygen Delivery Method Nasal Cannula Weight: 67.1 kg Body Mass Index (BMI) 22.4 Intake & Output: Intake and Output for Last 24 Hours 07/29/23 07/30/23 07/31/23 23:59 23:59 23:59 Intake Total 1000 / 1000 Output Total 1025 / 1025 Balance 1000 / 1000 -1025 / -1025 Lab / Micro Data 07/31/23 05:15 07/31/23 05:15 Labs: Laboratory Results - last 24 hr 07/30/23 20:51: WBC 5.5, RBC 4.07 L, Hgb 13.3, Hct 40.4, MCV 99.3 H, MCH 32.7 H, MCHC 32.9, RDW Std Deviation 48.3 H, RDW Coeff of Aly 13.2, Plt Count 262, MPV 9.4, Immature Gran % (Auto) 0.500, Neut % (Auto) 76.5 H, Lymph % (Auto) 10.9 L, [place] % (Auto) 10.7 H, Eos % (Auto) 0.5, Baso % (Auto) 0.9, Absolute Neuts (auto) 4.2, Absolute Lymphs (auto) 0.60 L, Nucleated RBC % 0, Sodium 138, Potassium 4.2, Chloride 102, Carbon Dioxide 29.0, Anion Gap 7, BUN 26 H, Creatinine 1.14, Estim Creat Clear Calc 55.00, Est GFR (MDRD) Af Amer 81, Est GFR (MDRD) Non-Af 67, BUN/Creatinine Ratio 22.8 H, Glucose 114 H, Calcium 9.2, Troponin I High Sens 15, B-Natriuretic Peptide 218.8 H 07/30/23 21:55: Urine Color Yellow, Urine Clarity Clear, Urine pH 7.0, Ur Specific [place] 1.010, Urine Protein 30 H, Urine Glucose (UA) Normal, Urine Ketones Negative, Urine Occult Blood 10 H, Urine Nitrite Negative, Urine Bilirubin Negative, Urine Urobilinogen Normal, Ur Leukocyte Esterase Negative, Urine RBC 0 SEEN, Urine WBC 0 SEEN, Ur Squamous Epith Cells 0 SEEN, Urine Bacteria 0 SEEN, Urine Mucus 0 SEEN 07/31/23 05:15: WBC 5.5, RBC 3.85 L, Hgb 12.6 L, Hct 37.9 L, MCV 98.4 H, MCH 32.7 H, MCHC 33.2, RDW Std Deviation 47.2 H, RDW Coeff of Aly 13.2, Plt Count 284, MPV 10.1, Immature Gran % (Auto) 0.400, Neut % (Auto) 85.0 H, Lymph % (Auto) 7.1 L, [place] % (Auto) 7.1, Eos % (Auto) 0.0, Baso % (Auto) 0.4, Absolute Neuts (auto) 4.7, Absolute Lymphs (auto) 0.39 L, Nucleated RBC % 0, Sodium 139, Potassium 4.0, Chloride 102, Carbon Dioxide 29.0, Anion Gap 8, BUN 23 H, Creatinine 1.01, Estim Creat Clear Calc 60.90, Est GFR (MDRD) Af Amer 93, Est GFR (MDRD) Non-Af 77, BUN/Creatinine Ratio 22.8 H, Glucose 113 H, Calcium 8.6 Micro: Microbiology 07/30/23 21:12 Mucosa - Nose SARS-CoV-2, Influenza & RSV (PCR) - Final Influenzae A ABG Data ABG results: ABG 07/30/23 21:22 Specimen Type LASHAE Sample Site Not entered O2 % 3.0 VBG pH 7.36 VBG pO2 38 VBG HCO3 28 H VBG Total CO2 29 VBG O2 Sat (Calc) 69 VBG Base Excess 2 POC Mix VBG pCO2 Pt Tmp 48.6 O2 Delivery Device Cannula Radiography Diagnostic Testing: Radiology Impression Brain CT 07/30/23 20:58 IMPRESSION: Age-related changes of the brain. Electronically Signed: Mario Cramer DO at 21:46 EST , Chest X-Ray 07/30/23 20:58 IMPRESSION: No radiographic evidence of acute cardiopulmonary disease. Electronically Signed: Mario Cramer DO at 21:10 EST , Physical Exam Const alert, no apparent distress and average body habitus General Appearance: cooperative, well kempt and well developed Orientation / Consciousness: awake, oriented to person and oriented to place HEENT normocephalic, head/scalp atraumatic and moist oral mucous membranes Eyes PERRL, EOMs intact bilaterally and conjunctivae normal Neck supple, no JVD, thyroid normal and no carotid bruits General: trachea midline Resp normal respiratory effort, no retractions and no use of accessory muscles Resp Narrative: Patient has mild expiratory wheezes bilaterally Auscultation: wheezes expiratory wheezes; Negative for rales or rhonchi Cardio regular rate, regular rhythm, S1 normal heart sound, S2 normal heart sound, no murmurs, no rub and no gallops GI normal to inspection, nondistended, normoactive bowel sounds, soft to palpation, non-tender and non-distended Extremity no clubbing, cyanosis or edema Skin no rashes or lesions noted General Skin Exam: no breakdown Neuro CN's II-XII intact bilaterally, moves all extremities, no focal motor deficits and no sensory deficits noted Sensorium / Orientation: awake, alert, oriented to person and oriented to place Speech: speech normal Psych affect normal Assessment & Plan Assessment/Plan (1) COPD with acute exacerbation: PLAN: Plan 1. Acute exacerbation of COPD-patient is currently on 2 L of oxygen via nasal cannula, continue aerosol treatments and Solu-Medrol #2 influenza A-patient is on Tamiflu #3 acute metabolic encephalopathy-etiology unclear, provide supportive care #4 recent pelvic fracture-patient will be given oral narcotics for pain, he will be seen by PT and OT #5 chronic hypoxic respiratory failure-patient is on O2 at his nursing facility presently #6 uncontrolled hypertension-patient will be placed back on his oral medications for blood pressure Total clinical time spent by myself addressing patient's medical issues, reviewing all of his data, and collaborating with patient's care team: 35 minutes Charges/Coding Visit Charges Inpatient E&M: 39284 Subs Hosp L2
[2023-08-01] VITALS (11 sets, daily range): BP systolic 145–189; BP diastolic 65–89; PULSE 68–90; RESP 18–25; TEMP 36.4–36.8; O2SAT 93–98
[2023-08-01] MEDS: Ipratropium/Albuterol Sulfate 3 ML AMPUL.NEB INHALATION ×5 (03:51→23:59)
[2023-08-01] MEDS: 0.9% Saline Lock 10 ML Syringe IV ×2 (05:29→21:29)
[2023-08-01] MEDS: oxyCODONE 5 MG Tablet PO ×2 (07:59→21:28)
[2023-08-01] MEDS: hydroCHLOROthiazide 12.5mg 12.5 MG PO (07:59)
[2023-08-01] MEDS: guaiFENesin 1,200 MG Tablet 1200 MG PO ×2 (08:00→21:28)
[2023-08-01] MEDS: Losartan Potassium 100 MG Tablet PO (08:00)
[2023-08-01] MEDS: NIFEdipine 90 MG Tablet PO (08:00)
[2023-08-01] MEDS: Oseltamivir Phosphate 75 MG Capsule PO ×2 (08:01→21:28)
[2023-08-01] MEDS: guaiFENesin Dm 10 ML UDC PO ×2 (08:20→19:47)
--- NOTE | 2023-08-01 15:31 | PCM.PN.HOSP ---
Reason for Visit Reason for Visit: Diagnoses Metabolic encephalopathy (07/30/23) Influenza due to other identified influenza virus with other respiratory manifestations (07/30/23) Chronic obstructive pulmonary disease with (acute) exacerbation (07/30/23) Subjective Subjective Patient was seen and examined today, he is alert and appropriate, he does not appear agitated. I have learned from discharge planning that the patient will need precertification to return to his group home facility. Objective Data Objective Data Vital Signs: Vital Signs Temp Pulse Resp BP Pulse Ox O2 Del Method O2 Flow Rate 98.3 F 86 21 H 145/66 H 96 Nasal Cannula 2 08/01/23 14:07 08/01/23 15:29 08/01/23 15:29 08/01/23 14:07 08/01/23 14:07 08/01/23 14:21 08/01/23 15:17 Oxygen Flow Rate (L/min) 2 Oxygen Delivery Method Nasal Cannula Weight: 67.1 kg Body Mass Index (BMI) 22.4 Intake & Output: Intake and Output for Last 24 Hours 07/30/23 07/31/23 08/01/23 23:59 23:59 23:59 Intake Total 1000 / 1000 Output Total 1225 / 1625 1250 / 1250 Balance 1000 / 1000 -1225 / -1625 -1250 / -1250 Lab / Micro Data 07/31/23 05:15 07/31/23 05:15 Micro: Microbiology 07/30/23 21:12 Mucosa - Nose SARS-CoV-2, Influenza & RSV (PCR) - Final Influenzae A Physical Exam Narrative alert, no apparent distress and average body habitus General Appearance: cooperative, well kempt and well developed Orientation / Consciousness: awake, oriented to person and oriented to place HEENT normocephalic, head/scalp atraumatic and moist oral mucous membranes Eyes PERRL, EOMs intact bilaterally and conjunctivae normal Neck supple, no JVD, thyroid normal and no carotid bruits General: trachea midline Resp normal respiratory effort, no retractions and no use of accessory muscles Resp Narrative: Patient has mild expiratory wheezes bilaterally Auscultation: wheezes expiratory wheezes; Negative for rales or rhonchi Cardio regular rate, regular rhythm, S1 normal heart sound, S2 normal heart sound, no murmurs, no rub and no gallops GI normal to inspection, nondistended, normoactive bowel sounds, soft to palpation, non-tender and non-distended Extremity no clubbing, cyanosis or edema Skin no rashes or lesions noted General Skin Exam: no breakdown Neuro CN's II-XII intact bilaterally, moves all extremities, no focal motor deficits and no sensory deficits noted Sensorium / Orientation: awake, alert, oriented to person and oriented to place Speech: speech normal Psych affect normal Assessment & Plan Assessment/Plan (1) COPD with acute exacerbation: PLAN: Plan 1. Acute exacerbation of COPD-patient is currently on 2 L of oxygen via nasal cannula, continue aerosol treatments and Solu-Medrol #2 influenza A-patient is on Tamiflu #3 acute metabolic encephalopathy-etiology unclear, this is currently resolved #4 recent pelvic fracture-patient will be given oral narcotics for pain, he will be seen by PT and OT #5 chronic hypoxic respiratory failure-patient is on O2 at his nursing facility presently #6 uncontrolled hypertension-patient's blood pressure has improved today on his oral medications, it will continue to be monitored Total clinical time spent by myself addressing patient's medical issues, reviewing all of his data, and collaborating with patient's care team: 25 minutes Charges/Coding Visit Charges Inpatient E&M: 12096 Subs Hosp L1
[2023-08-01] MEDS: BENZOCAINE/MENTHOL 1 LOZENGE MUCOUS MEM ×3 (15:44→22:09)
[2023-08-01] MEDS: Labetalol (Prefilled) 20 MG/4 ML IV (22:09)
[2023-08-02] VITALS (10 sets, daily range): BP systolic 147–191; BP diastolic 59–89; PULSE 68–98; RESP 16–20; TEMP 36.2–36.6; O2SAT 2–96
[2023-08-02] MEDS: BENZOCAINE/MENTHOL 1 LOZENGE MUCOUS MEM ×2 (00:42→12:59)
[2023-08-02] MEDS: guaiFENesin Dm 10 ML UDC PO (03:21)
[2023-08-02] MEDS: Ipratropium/Albuterol Sulfate 3 ML AMPUL.NEB INHALATION ×4 (03:55→18:36)
[2023-08-02] MEDS: 0.9% Saline Lock 10 ML Syringe IV (08:17)
[2023-08-02] MEDS: Labetalol (Prefilled) 20 MG/4 ML IV (08:17)
[2023-08-02] MEDS: NIFEdipine 90 MG Tablet PO (10:40)
[2023-08-02] MEDS: Oseltamivir Phosphate 75 MG Capsule PO ×2 (10:40→19:27)
[2023-08-02] MEDS: guaiFENesin 1,200 MG Tablet 1200 MG PO ×2 (10:40→19:27)
[2023-08-02] MEDS: hydroCHLOROthiazide 12.5mg 12.5 MG PO (10:40)
[2023-08-02] MEDS: Losartan Potassium 100 MG Tablet PO (10:40)
--- NOTE | 2023-08-02 13:16 | CASEMGMT ---
Discharge Planning Updates sent via [facility] to [facility]. Requested that precert be started. Jacquie Michaud, Discharge Planning Asst.
[2023-08-02] MEDS: oxyCODONE 5 MG Tablet PO (15:25)
--- NOTE | 2023-08-02 15:49 | PCM.TXEXTCAR ---
Diet Diet Order/Speech Therapy: 07/31/23 16:57 Diet: Regular - General Is pt able to select menu?: Yes Routine Orders/Code Status O2 Liters per Minute: 2 O2 Frequency: Continuous Code Status: Full Code Wound(s) Left Elbow: Wound Type: Scab Therapies Weight Bearing: Full weight bearing Problem/Diagnosis (1) COPD with acute exacerbation: Status: Chronic Code(s): J44.1 - Chronic obstructive pulmonary disease with (acute) exacerbation (2) Closed fracture of right inferior pubic ramus: Status: Acute Code(s): S32.591A - Other specified fracture of right pubis, initial encounter for closed fracture Plan 1. Acute exacerbation of COPD-patient is currently on 2 L of oxygen via nasal cannula, continue aerosol treatments and Solu-Medrol #2 influenza A-patient is on Tamiflu #3 acute metabolic encephalopathy-etiology unclear, this is currently resolved #4 recent pelvic fracture-patient will be given oral narcotics for pain, he will be seen by PT and OT #5 chronic hypoxic respiratory failure-patient is on O2 at his nursing facility presently #6 uncontrolled hypertension-patient's blood pressure has improved today on his oral medications, it will continue to be monitored Total clinical time spent by myself addressing patient's medical issues, reviewing all of his data, and collaborating with patient's care team: 25 minutes Allergies/Procedures Done in Hospital Allergies No Known Allergies Allergy (Verified 07/24/23 16:43) Procedures: None Type of Care/Length of Stay Estimated LOS: Convalescent Care Less Than 30 days Type of Care Needed: Skilled Rehab Potential: Good Prognosis: Good Additional Orders/Day of Discharge H&P will serve as current which was dated: 07/30/23 Day of Discharge: 08/02/23 Dietary and Speech Recommendations Dietitian Recommendations/Changes: As medically able, rec SANTOS to Cardiac / Consistent CHO - consistency per [employer]. Monitor need for po supplement pending po intake/wts and order if indicated Discharge Plan Admission Admit Date/Time: 07/30/23 23:48 Primary Reason for Your Visit: COPD exacerbation, influenza A Attending Provider: Ryan Guerin Primary Care Provider: Daija Douglas Consulting Providers: Brody Maynard Discharge Orders/Prescriptions Prescriptions: New guaifenesin [Mucus Relief ER] 1,200 mg Tablet Extended Release 12hr 1,200 mg PO BID Qty: 0 0RF dextromethorphan-guaifenesin 10-100 mg/5 mL Syrup 10 ml PO Q6H PRN PRN (Reason: COUGH) Qty: 0 0RF oseltamivir 75 mg Capsule 75 mg PO BID Qty: 0 0RF Rx Instructions: Continue for seven doses, then discontinue hydrochlorothiazide 12.5 mg Capsule 12.5 mg PO DAILY Qty: 0 0RF oxycodone 5 mg Tablet 5 - 10 mg PO Q4H PRN PRN (Reason: Pain Score 6-10) 2 Days Qty: 10 0RF Continued tamsulosin 0.4 MG capsule 0.4 mg PO QHS Patient Comments: Prostate and urine finasteride 5 MG tablet 5 mg PO DAILY Patient Comments: prostate atorvastatin 40 MG tablet 40 mg PO QHS Patient Comments: CHOLESTEROL mirtazapine 15 MG tablet 15 mg PO QHS clopidogrel 75 MG tablet 75 mg PO DAILY carbamazepine 200 MG tablet 200 mg PO Q12H Patient Comments: face pain losartan 100 mg tablet 100 mg PO DAILY pantoprazole 40 mg tablet,delayed release (DR/EC) 40 mg PO DAILY nifedipine 90 mg tablet extended release 90 mg PO DAILY alendronate 70 mg tablet 70 mg PO QWEEK Qty: 1 0RF metoprolol tartrate 25 mg tablet 25 mg PO DAILY sennosides-docusate sodium [Stool Softener-Stimulant Laxat] 8.6-50 mg Tablet 2 tab PO BID PRN PRN (Reason: Constipation) Qty: 0 0RF acetaminophen 500 mg Tablet 1,000 mg PO Q8 30 Days Qty: 0 0RF Discontinued nicotine 21 mg/24 hr Patch 24 Hour 21 mg transdermal DAILY Qty: 0 0RF albuterol sulfate 90 mcg/actuation HFA aerosol inhaler 1 puff INHALATION Q8H oxycodone 5 mg Tablet 5 mg PO Q4H PRN PRN (Reason: Pain Score 4-10) 7 Days Qty: 42 0RF Referrals / Follow Up: Daija Douglas MD [Primary Care Provider] - Disposition Disposition (needs filled in before D/C Order can be placed): Custodial Facility
--- NOTE | 2023-08-02 16:20 | PCM.DC.SUM ---
Providers Date of Admission: 07/30/23 Date of Discharge: 08/02/23 Primary Care Physician: Dr. Daija Douglas MD Reason For Visit: HYPERTENSIVVE URGENCY, COPD EXA Diagnosis Discharge Diagnosis (1) COPD with acute exacerbation: Status: Chronic Code(s): J44.1 - Chronic obstructive pulmonary disease with (acute) exacerbation (2) Closed fracture of right inferior pubic ramus: Status: Acute Code(s): S32.591A - Other specified fracture of right pubis, initial encounter for closed fracture Plan 1. Acute exacerbation of COPD-patient is currently on 2 L of oxygen via nasal cannula, continue aerosol treatments and Solu-Medrol #2 influenza A-patient is on Tamiflu #3 acute metabolic encephalopathy-etiology unclear, this is currently resolved #4 recent pelvic fracture-patient will be given oral narcotics for pain, he will be seen by PT and OT #5 chronic hypoxic respiratory failure-patient is on O2 at his nursing facility presently #6 uncontrolled hypertension-patient's blood pressure has improved today on his oral medications, it will continue to be monitored Total clinical time spent by myself addressing patient's medical issues, reviewing all of his data, and collaborating with patient's care team: 25 minutes Medications at Discharge Home Medications tamsulosin 0.4 mg capsule 0.4 mg PO QHS bph 01/26/14 finasteride 5 mg tablet 5 mg PO DAILY prostate 11/14/14 atorvastatin 40 mg tablet 40 mg PO QHS Cholesterol 09/23/15 mirtazapine 15 mg tablet 15 mg PO QHS anti depressant 08/16/19 clopidogrel 75 mg tablet 75 mg PO DAILY blood thinner 10/25/19 carbamazepine 200 mg tablet 200 mg PO Q12H Check with primary doctor 10/26/19 losartan 100 mg tablet 100 mg PO DAILY Blood pressure 08/19/21 pantoprazole 40 mg tablet,delayed release 40 mg PO DAILY GERD 08/19/21 nifedipine 90 mg tablet,extended release 90 mg PO DAILY blood pressure 11/25/21 alendronate 70 mg tablet 70 mg PO QWEEK #1 TAB 11/30/21 metoprolol tartrate 25 mg tablet 25 mg PO DAILY Blood pressure 03/30/23 sennosides 8.6 mg-docusate sodium 50 mg tablet (Stool Softener-Stimulant Laxative) 2 tab PO BID PRN PRN Constipation #0 tabs 04/04/23 acetaminophen 500 mg tablet 1,000 mg (2 x 500 mg) PO Q8 30 days #0 tabs 07/26/23 dextromethorphan-guaifenesin 10 mg-100 mg/5 mL oral syrup 10 ml PO Q6H PRN PRN COUGH #0 mL 08/02/23 guaifenesin 1,200 mg tablet, extended release 12 hr (Mucus Relief ER) 1,200 mg PO BID #0 tabs 08/02/23 hydrochlorothiazide 12.5 mg capsule 12.5 mg PO DAILY #0 caps 08/02/23 oseltamivir 75 mg capsule 75 mg PO BID #0 caps 08/02/23 oxycodone 5 mg tablet 5 - 10 mg (1 - 2 x 5 mg) PO Q4H PRN PRN Pain Score 6-10 2 days #10 tabs 08/02/23 Hospital Course Operations None Procedures None Summary of Care Provided Minutes Spent on Discharge: 33 Hospital Course: 73-year-old white male was seen in the emergency room at [facility] with complaints of shortness of breath, patient was on supplemental oxygen at home and had a recent pubic rami fracture and was in a extended care facility. Patient became short of breath at the longterm and had audible wheezing, he was sent to the emergency room for evaluation of increasing shortness of breath. Workup in the emergency room included a chest x-ray which showed no radiographic evidence of acute cardiopulmonary disease, patient was noted to be tachypneic with respiratory rate of 30, his blood pressure was elevated. Patient also appeared confused. Patient was positive for influenza A. Patient was admitted to ICU, he was treated for COPD exacerbation from influenza A, he was given IV Solu-Medrol and scheduled bronchodilators. He remained confused for time while he was hospitalized but gradually the patient's mentation improved. On 08/02/2023, patient was seen and examined: On examination he appeared in good health and spirits. Vital signs as documented. Skin warm and dry and without overt rashes. Neck without JVD, neck was supple, trachea midline, thyroid was normal. Lungs clear bilaterally, normal air movement was noted. Heart exam notable for regular rhythm, normal sounds and absence of murmurs, rubs or gallops. Abdomen unremarkable and without evidence of organomegaly, masses, or abdominal aortic enlargement. Bowel sounds are present, abdomen is not distended. Extremities nonedematous, no cyanosis was noted, no clubbing was noted. Neuro: Cranial nerves II through XII are grossly intact, no focal motor deficits were noted, sensation to light touch and pinprick intact, motor exam 5/5 throughout. Psych: Patient is alert and oriented x3, he does not appear anxious or depressed, he does not appear agitated. Patient was transferred to long term facility on 08/02/2023 in stable condition Weight / BMI Weight Weight: 67.1 kg Body Mass Index (BMI) 22.4 ABG / Lab / Microbiology Data 07/31/23 05:15 07/31/23 05:15 Microbiology: Microbiology 07/30/23 21:12 Mucosa - Nose SARS-CoV-2, Influenza & RSV (PCR) - Final Influenzae A Meaningful Use Info Meaningful Use Diagnoses (Choose all that apply): None applicable Discharge Plan Admission Admit Date/Time: 07/30/23 23:48 Primary Reason for Your Visit: COPD exacerbation, influenza A Attending Provider: Ryan Guerin Primary Care Provider: Daija Douglas Consulting Providers: Brody Maynard Discharge Orders/Prescriptions Prescriptions: New guaifenesin [Mucus Relief ER] 1,200 mg Tablet Extended Release 12hr 1,200 mg PO BID Qty: 0 0RF dextromethorphan-guaifenesin 10-100 mg/5 mL Syrup 10 ml PO Q6H PRN PRN (Reason: COUGH) Qty: 0 0RF oseltamivir 75 mg Capsule 75 mg PO BID Qty: 0 0RF Rx Instructions: Continue for seven doses, then discontinue hydrochlorothiazide 12.5 mg Capsule 12.5 mg PO DAILY Qty: 0 0RF oxycodone 5 mg Tablet 5 - 10 mg PO Q4H PRN PRN (Reason: Pain Score 6-10) 2 Days Qty: 10 0RF Continued tamsulosin 0.4 MG capsule 0.4 mg PO QHS Patient Comments: Prostate and urine finasteride 5 MG tablet 5 mg PO DAILY Patient Comments: prostate atorvastatin 40 MG tablet 40 mg PO QHS Patient Comments: CHOLESTEROL mirtazapine 15 MG tablet 15 mg PO QHS clopidogrel 75 MG tablet 75 mg PO DAILY carbamazepine 200 MG tablet 200 mg PO Q12H Patient Comments: face pain losartan 100 mg tablet 100 mg PO DAILY pantoprazole 40 mg tablet,delayed release (DR/EC) 40 mg PO DAILY nifedipine 90 mg tablet extended release 90 mg PO DAILY alendronate 70 mg tablet 70 mg PO QWEEK Qty: 1 0RF metoprolol tartrate 25 mg tablet 25 mg PO DAILY sennosides-docusate sodium [Stool Softener-Stimulant Laxat] 8.6-50 mg Tablet 2 tab PO BID PRN PRN (Reason: Constipation) Qty: 0 0RF acetaminophen 500 mg Tablet 1,000 mg PO Q8 30 Days Qty: 0 0RF Discontinued nicotine 21 mg/24 hr Patch 24 Hour 21 mg transdermal DAILY Qty: 0 0RF albuterol sulfate 90 mcg/actuation HFA aerosol inhaler 1 puff INHALATION Q8H oxycodone 5 mg Tablet 5 mg PO Q4H PRN PRN (Reason: Pain Score 4-10) 7 Days Qty: 42 0RF Referrals / Follow Up: Daija Douglas MD [Primary Care Provider] - Disposition Disposition (needs filled in before D/C Order can be placed): Group Home Facility Charges/Coding Visit Charges Inpatient E&M: 94168 Disch Hosp >30min
--- NOTE | 2023-08-02 16:28 | CASEMGMT ---
Social Work Precert has been obtained for return to [facility]. Physician updated and pt is ready for dc today. Green Sheet on chart to facilitate return to [facility]. Disposition: Return to [facility], skilled level of care SHANE Tinoco
== END 2023-08-02 21:15 | disposition skilled nursing facility (03) | DRG 190 ==
LOC: ED 22:27 → ICU 07-31 00:30
PROVIDERS: Nurse Practitioner; Admitting Provider Internal Medicine; Emergency Provider Emergency Medicine; PCP Internal Medicine; Visit Provider Internal Medicine
DX: J44.1 Chronic obstructive pulmonary disease with (acute) exacerbation (principal); G93.41 Metabolic encephalopathy; S32.591A Other specified fracture of right pubis, initial encounter for closed fracture; J96.11 Chronic respiratory failure with hypoxia; J10.81 Influenza due to other identified influenza virus with encephalopathy; Z99.81 Dependence on supplemental oxygen; E11.9 Type 2 diabetes mellitus without complications; I48.0 Paroxysmal atrial fibrillation; I16.0 Hypertensive urgency; F32.A Depression, unspecified; E78.00 Pure hypercholesterolemia, unspecified; F17.210 Nicotine dependence, cigarettes, uncomplicated; I10 Essential (primary) hypertension; K21.9 Gastro-esophageal reflux disease without esophagitis; J10.1 Influenza due to other identified influenza virus with other respiratory manifestations; G47.30 Sleep apnea, unspecified; W19.XXXA Unspecified fall, initial encounter; N40.0 Benign prostatic hyperplasia without lower urinary tract symptoms; Z79.02 Long term (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 of antithrombotics/antiplatelets; Z79.83 Long term (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 of bisphosphonates; Z79.899 Other long term (current) drug therapy; Z86.73 Personal history of transient ischemic attack (TIA), and cerebral infarction without residual deficits
CPT/HCPCS: 70450; 71045; 80048; 81001; 82803; 83880; 84484; 85025; 87631; 93005; 94640; 94668; 94762; 97116; 97162; 97166; 99285; 99406; J7030; A4216

== ENCOUNTER → 2023-10-25 | Outpatient (REF) | payer MEDICARE, MEDICAID, SELFPAY ==
[2023-10-25 08:58] LABS: Hematocrit 44.1 % (40-54); Hemoglobin 14.1 g/dL (13.0-16.5); Mean Corpuscular Hgb 32.1 pg (27.0-32.0); Mean Corpuscular Volume 100.5 fL (80-94); Mean Platelet Vol. 9.7 fl (6.2-12.0); Platelet Count 306 K/mm3 (150-450); RBC Distribution Width CV 12.9 % (11.6-14.6); RBC Distribution Width SD 48.3 fl (35.1-43.9); Red Blood Count 4.39 M/mm3 (4.6-6.2)
[2023-10-25 09:20] LABS: ALB/GLOB Ratio 0.9 RATIO (0.9-2.4); AST(SGOT) 16 U/L (15-37); Alanine Aminotransfer ALT/SGPT 32 U/L (16-61); Albumin, Serum 3.3 g/dL (3.2-5.0); Alkaline Phosphatase 93 U/L (45-117); Anion Gap 5 (5-15); BUN 23 mg/dL (7-18); BUN/Creat Ratio 21.7 RATIO (10-20); Calcium,Total 9.2 mg/dL (8.5-10.1); Chloride 108 mmol/L (98-107); Creatinine, Serum 1.06 mg/dL (0.70-1.30); EST Glomerular Filtration Rate 73 mL/min (>60); Est Glom Filt Rate - Afr Amer 88 mL/min (>60); Globulin 3.6 g/dL (2.2-4.2); Glucose 89 mg/dL (74-106); Potassium 3.9 mmol/L (3.5-5.1); Protein, Total 6.9 g/dL (6.4-8.2); Sodium Level 139 mmol/L (136-145)
== END ==
LOC: OLS.SW 04:35
PROVIDERS: PCP Internal Medicine; Referring Provider Family Medicine; Visit Provider Family Medicine
DX: E11.9 Type 2 diabetes mellitus without complications (principal); J44.9 Chronic obstructive pulmonary disease, unspecified
CPT/HCPCS: 36415; 80053; 85027

== ENCOUNTER 2023-12-08 12:49 | Emergency (ER) | payer MEDICARE, MEDICAID, SELFPAY ==
[2023-12-08 12:50] VITALS: PULSE 88; RESP 18; TEMP 36.4; O2SAT 98; BMI 22.6
[2023-12-08 12:57] VITALS: BP 198/93
--- NOTE | 2023-12-08 13:21 | EKG12_ITS ---
Test Reason : Blood Pressure : / mmHG Vent. Rate : 064 BPM Atrial Rate : 064 BPM P-R Int : 186 ms QRS Dur : 090 ms QT Int : 396 ms P-R-T Axes : 050 062 082 degrees QTc Int : 408 ms Normal sinus rhythm Normal ECG Confirmed by Juan Downey ([id number]), primer expeditor and drier RAE NATH ([id number]) on 12/12/2023 5:58:20 AM Referred By: Confirmed By:Juan Downey
--- NOTE | 2023-12-08 13:23 | ED.VIS.GI ---
HPI HPI - GI History of Present Illness Chief Complaint: Diarrhea Detail of Chief Complaint: Diarrhea for weeks. Informant: patient Nausea/Vomiting/Emesis GI Symptom: Positive for Nausea Severity: Mild Diarrhea/Melena/Hematochezia GI Symptom: Positive for Diarrhea; Negative for Melena or Hematochezia Onset: Weeks Stool Quality: Positive for Loose Severity: Moderate Associated Symptoms Associated Symptoms: Positive for Dysuria; Negative for Frequency, Hematuria or Urgency Narrative Narrative: 73-year-old male history of COPD, diabetes and A-fib and patient does not know if or what blood thinner he is on. Recently was admitted to the hospital and then went to a nursing for about 6 months she has been home for about a month. He states for at least 2 weeks maybe longer he has had diarrhea. Initially started is about 6 episodes a day now is down about 3-4. He denies any gross blood or black stool. Mild nausea no significant vomiting. Family is not here yet. I hope to speak with the daughter. She is currently living with him and caring for him after he was discharged from the [facility]. The squad said there may be a thought that he may have to go back to the [facility] per family. I have not spoken with them yet. Prior similar symptoms: Yes Recent Illness/Hospitalization: Yes [facility] Medical History Closed fracture of right inferior pubic ramus Acute UTI COPD (chronic obstructive pulmonary disease) UTI (urinary tract infection) Depression Diabetes Kidney stones Chronic pain Pancreatitis On home oxygen therapy Irregular heart beat Atrial fibrillation Stroke/cerebrovascular accident Smoker Falls frequently Seizures Sleep apnea COPD (chronic obstructive pulmonary disease) Asthma High cholesterol Tobacco abuse Home Medications ?Medication ?Instructions ?Recorded ?Last Taken ?Type tamsulosin 0.4 mg capsule 0.4 mg PO QHS bph 01/26/14 03/28/23 History finasteride 5 mg tablet 5 mg PO DAILY prostate 11/14/14 03/28/23 History atorvastatin 40 mg tablet 40 mg PO QHS Cholesterol 09/23/15 03/28/23 History mirtazapine 15 mg tablet 15 mg PO QHS anti depressant 08/16/19 03/28/23 History clopidogrel 75 mg tablet 75 mg PO DAILY blood thinner 10/25/19 03/28/23 History losartan 100 mg tablet 100 mg PO DAILY Blood pressure 08/19/21 03/28/23 History pantoprazole 40 mg tablet,delayed 40 mg PO DAILY GERD 08/19/21 03/28/23 History release nifedipine 90 mg tablet,extended 90 mg PO DAILY blood pressure 11/25/21 03/28/23 History release alendronate 70 mg tablet 70 mg PO QWEEK #1 TAB 11/30/21 03/28/23 Rx metoprolol tartrate 25 mg tablet 25 mg PO DAILY Blood pressure 03/30/23 03/28/23 History sennosides 8.6 mg-docusate sodium 2 tab PO BID PRN PRN Constipation 04/04/23 Unknown Rx 50 mg tablet (Stool #0 tabs Softener-Stimulant Laxative) acetaminophen 500 mg tablet 1,000 mg (2 x 500 mg) PO Q8 30 07/26/23 Unknown Rx days #0 tabs oxycodone 5 mg tablet 5 - 10 mg (1 - 2 x 5 mg) PO Q4H 08/02/23 Unknown Rx PRN PRN Pain Score 6-10 2 days #10 tabs albuterol sulfate 90 mcg/actuation 1 puff inhalation Q8H 08/22/23 Unknown History aerosol inhaler aluminum-magnesium hydroxide 225 30 ml PO Q4H PRN 08/22/23 Unknown History mg-200 mg/5 mL oral suspension carbamazepine 200 mg 200 mg PO Q12H 08/22/23 Unknown History tablet,extended release,12 hr cholecalciferol (vitamin D3) 50 50 mcg PO DAILY 08/22/23 Unknown History mcg (2,000 unit) tablet clonidine HCl 0.1 mg tablet 0.1 mg PO BID 08/22/23 Unknown History guaifenesin 100 mg/5 mL oral liquid 200 mg PO Q4H PRN 08/22/23 Unknown History guaifenesin 400 mg tablet 400 mg PO BID PRN 08/22/23 Unknown History sertraline 100 mg tablet 100 mg PO DAILY 08/22/23 Unknown History Allergy/AdvReac Type Severity Reaction Status Date / Time No Known Allergies Allergy Verified 08/22/23 10:12 Family History Other Heart disease Surgical History S/P arterial stent History of appendectomy Social History household members: none Smoking Status: Former smoker how long ago did patient quit smoking: Has not smoked in 7 weeks alcohol intake: former details: Former alcoholic quit several years ago substance use type: does not use caffeine: Yes Type: coffee Number of servings: 3 ROS ROS ED ROS Narrative Diarrhea. Review of Systems ROS Unobtainable: Denies due to encephalopathy Constitutional Constitutional ED: Denies chills or fever(s) ENT ENT ED: Denies ear pain Cardiovascular Cardiovascular: Denies chest pain Gastrointestinal Gastrointestinal: Reports diarrhea and nausea; Denies abdominal pain, constipation, melena or vomiting Genitourinary Genitourinary ED: Reports dysuria Musculoskeletal Musculoskeletal: Denies arthralgias Integumentary Denies abscess Neurologic Neurologic: Denies headache(s) Psychiatric Psychiatric: Denies anxiety Endocrine Endocrinology: Denies polydipsia Hematologic/Lymphatic Hematologic/Lymphatic: Denies easy bleeding Allergic/Immunologic Allergic/Immunologic ED: Denies mouth swelling, tongue swelling or urticaria EXAM Physical Exam Narrative Exam Narrative: 69-year-old male no acute distress vital signs are stable and afebrile. H EENT exam unremarkable. Neck nontender. Lungs clear to auscultation. Heart rate about 90. Appears to be a regular rhythm. No murmur. Chest wall ribs nontender. Abdomen soft nontender. Back nontender. Moving all 4 extremities. Nontender. No deformity. No significant edema. Neurological he is awake and alert no focal motor deficits. Const Vital Signs: 12/08/23 12:50 12/08/23 12:57 12/08/23 13:26 Temperature 97.6 F L Temperature Source Temporal Pulse Rate 88 Respiratory Rate 18 16 Blood Pressure 198/93 H Blood Pressure Mean 128 Pulse Ox 98 94 Oxygen Delivery Method Room Air Room Air 12/08/23 15:05 Temperature 97.7 F L Temperature Source Pulse Rate 82 Respiratory Rate 18 Blood Pressure 182/93 H Blood Pressure Mean 122 Pulse Ox 96 Oxygen Delivery Method Positive well nourished and well developed; Negative for cachectic, contractures or unkempt General Appearance ED: well developed and NAD; Negative for unkempt, cachectic, contractures or pallor Nutritional Appearance: Negative for cachectic HEENT Reports moist mucous membranes; Denies dry mucous membranes normocephalic and atraumatic; Negative for trauma or tenderness Mouth ED: No dry mucous membranes Mouth: No dry mucous membranes Eyes PERRL and EOMs intact bilaterally General Eye ED: Negative for pale conjunctiva or scleral icterus Neck no lymphadenopathy, supple and no JVD General: Negative for tenderness Carotids: Negative for other Lymph Lymphatic: other Resp normal respiratory effort and clear to auscultation bilaterally Effort and Inspection: Negative for respiratory distress or retractions Auscultation: Negative for rales, rhonchi, wheezes or diminished lung sounds Cardio regular rate, regular rhythm, S1 normal heart sound, S2 normal heart sound and no murmurs Rate: Negative for bradycardia or tachycardic Rhythm: Negative for abnormal rhythm GI non-tender, non-distended and no masses Inspection: Negative for abdominal distention Auscultation: normoactive bowel sounds Palpation: soft; Negative for tender, guarding, hernia, mass, pulsatile mass or rebound tenderness present Back/Spine no CVA tenderness General Back: Negative for CVA tenderness Cervical Spine: Negative for cervical spine tenderness Thoracic Spine / Upper Back: Negative for thoracic spinal tenderness Lumbar Spine / Lower Back: Negative for lumbar spinal tenderness Coccyx: Negative for other Extremity full ROM General Extremety ED: Negative for edema or tenderness General Extremity: Negative for edema Neuro CN's II-XII intact bilaterally and moves all extremities Sensorium / Orientation: alert, oriented to person and oriented to place; Negative for orientation impaired, confused, lethargic or stuporous Motor Exam: strength 5/5 throughout Psych mental status grossly normal and thought process normal Appearance: Negative for unkempt Attitude: No agitated Mood & Affect: Negative for depressed, anxious or tearful Skin no wounds General Skin Exam: Negative for jaundice or pallor Lesions: no lesions Rashes: no rashes Trauma: Negative for abrasion Nails: Negative for discolored MDM MDM MDM Narrative Medical decision making narrative: 73-year-old diarrhea. Screening labs to be obtained. Once family arrives I will discuss with them the history and get their take on whether he needs readmission to a [facility]. Repeat exam at 3 PM patient is doing well. I called his ex- who is the power of small package and bundle sorter clerk. She states he does not need to be sent back to the [facility]. He hated it when he was in the nursing and the last time he called her every day daily finally took him out. She lives by him and checks on him daily. As do other family members and he has a brother that stops by also. She is comfortable with him being discharged home. I discussed all this with the patient and he is also comfortable being discharged home. He has not been able to produce any urine sodium sent a urine sample I do not think he needs straight cath he does not have any urinary symptoms significantly. He is also had no bowel movement so we have not sent anything for C. difficile which I do not think this is. Plenty of fluids and rest. Outpatient follow-up. History & Record Review Discussion w/independent historian: Patient and Family Additional record(s) reviewed:: Prior inpatient record, Prior outpatient record, Prior ED visit and Prior labs Lab Data Attestation: I reviewed the patient's lab results. Lab results narrative: CBC shows a white count of 5.9. H&H of 15 and 47. Platelet count 300. Electrolytes show a gap of 11. Normal BUN and creatinine of 17 and 1.1. Liver enzymes are normal. Checks x-ray shows chronic changes no acute process. Labs: Laboratory Results - last 24 hr 12/08/23 13:34 WBC 5.9 RBC 5.01 Hgb 15.8 Hct 47.3 MCV 94.4 H MCH 31.5 MCHC 33.4 RDW Std Deviation 42.1 RDW Coeff of Aly 12.1 Plt Count 300 MPV 9.9 Immature Gran % (Auto) 0.300 Neut % (Auto) 75.4 H Lymph % (Auto) 16.3 L [place] % (Auto) 6.3 Eos % (Auto) 0.5 Baso % (Auto) 1.2 H Absolute Neuts (auto) 4.4 Absolute Lymphs (auto) 0.96 Nucleated RBC % 0 PT 14.0 INR 1.1 Sodium 138 Potassium 3.7 Chloride 103 Carbon Dioxide 24.0 Anion Gap 11 BUN 17 Creatinine 1.10 Estim Creat Clear Calc 56.42 Est GFR (MDRD) Af Amer 84 Est GFR (MDRD) Non-Af 69 BUN/Creatinine Ratio 15.5 Glucose 118 H Calcium 9.6 Total Bilirubin 0.20 AST 33 ALT 54 Alkaline Phosphatase 79 Total Protein 7.6 Albumin 3.9 Globulin 3.7 Albumin/Globulin Ratio 1.1 Radiography Chest X-Ray - ED: 1 View, Read by ED Physician, Heart, Lungs, Mediastinum, Bony Structures, No Acute Disease and Chronic Changes Diagnostic Testing: Clinical Impression(s) from Imaging Studies Chest X-Ray 12/08/23 13:55 IMPRESSION: Hyperinflation. Scattered calcified granulomas. Prominence of the central pulmonary arteries. Electronically Signed: Jasson Plata MD at 14:11 EDT , Chest x-ray, portable, single view interpreted both by myself and radiologist shows chronic changes no acute process. Rhythm Strip Rhythm Strip: Sinus Rhythm Rate: 64 Ectopy: None EKG Initial EKG: Attestation: I personally reviewed and interpreted this EKG as follows: Interpretation: Sinus Rhythm and No Acute Injury Pattern Comments: Normal sinus rhythm rate is 64 no acute signs of FL or ischemia. Discharge Plan Triage Chief Complaint: Diarrhea ED Provider: Aris Dixon Dx/Rx/DC Orders Clinical Impression: Diarrhea, History of atrial fibrillation, History of diabetes mellitus, History of COPD Instructions: ED Diarrhea, Unknown Cause Prescriptions: No Action albuterol sulfate 90 mcg/actuation HFA aerosol inhaler 1 puff inhalation Q8H aluminum-magnesium hydroxide 225-200 mg/5 mL suspension 30 ml PO Q4H PRN carbamazepine 200 mg tablet extended release 12 hr 200 mg PO Q12H guaifenesin 400 mg tablet 400 mg PO BID PRN guaifenesin 100 mg/5 mL liquid 200 mg PO Q4H PRN sertraline 100 mg tablet 100 mg PO DAILY cholecalciferol (vitamin D3) 50 mcg (2,000 unit) tablet 50 mcg PO DAILY clonidine HCl 0.1 mg tablet 0.1 mg PO BID tamsulosin 0.4 MG capsule 0.4 mg PO QHS Patient Comments: Prostate and urine finasteride 5 MG tablet 5 mg PO DAILY Patient Comments: prostate atorvastatin 40 MG tablet 40 mg PO QHS Patient Comments: CHOLESTEROL mirtazapine 15 MG tablet 15 mg PO QHS clopidogrel 75 MG tablet 75 mg PO DAILY losartan 100 mg tablet 100 mg PO DAILY pantoprazole 40 mg tablet,delayed release (DR/EC) 40 mg PO DAILY nifedipine 90 mg tablet extended release 90 mg PO DAILY alendronate 70 mg tablet 70 mg PO QWEEK Qty: 1 0RF metoprolol tartrate 25 mg tablet 25 mg PO DAILY sennosides-docusate sodium [Stool Softener-Stimulant Laxat] 8.6-50 mg Tablet 2 tab PO BID PRN PRN (Reason: Constipation) Qty: 0 0RF acetaminophen 500 mg Tablet 1,000 mg PO Q8 30 Days Qty: 0 0RF oxycodone 5 mg Tablet 5 - 10 mg PO Q4H PRN PRN (Reason: Pain Score 6-10) 2 Days Qty: 10 0RF Primary Care Provider: Daija Douglas Referrals: Daija Douglas MD [Primary Care Provider] - 3-5 Days if not improving Activity Restrictions/Additional Instructions: Your labs look good. Plenty of fluids and rest to prevent from getting dehydrated from the diarrhea. If the diarrhea or is not improving in the next 24 to 48 hours you may start using Imodium to decrease diarrhea. Follow-up with your doctor if not improving or return to the emergency department if feeling worse. Print Language: Greek Disposition Disposition: Home, Self Care
[2023-12-08 13:26] VITALS: RESP 16; O2SAT 94
[2023-12-08 13:46] LABS: Absolute Lymphocyte Count 0.96 X10^3/uL (0.83-4.51); Absolute Neutrophil Count 4.4 X10^3/uL (2.0-7.7); Basophil# 0.07 X10^3/uL; Basophil% 1.2 % (0-1); Eosinophil# 0.03 X10^3/uL; Eosinophils% 0.5 % (0-5); Hematocrit 47.3 % (40-54); Hemoglobin 15.8 g/dL (13.0-16.5); Lymphocyte # 0.96 X10^3/ul (0.83-4.51); Lymphocyte % 16.3 % (19-41); Mean Corp Hgb Conc 33.4 g/dL (32-36); Mean Corpuscular Hgb 31.5 pg (27.0-32.0); Mean Corpuscular Volume 94.4 fL (80-94); Mean Platelet Vol. 9.9 fl (6.2-12.0); Monocyte# 0.37 X10^3/uL; Monocyte% 6.3 % (0-10); NRBC Flagged by Analyzer 0 % (0-5); Neutrophil # 4.43 X10^3/uL (2.7-7.7); Neutrophil % 75.4 % (47-70); Platelet Count 300 K/mm3 (150-450); RBC Distribution Width CV 12.1 % (11.6-14.6); RBC Distribution Width SD 42.1 fl (35.1-43.9); Red Blood Count 5.01 M/mm3 (4.6-6.2); White Blood Count 5.9 K/mm3 (4.4-11.0)
[2023-12-08 13:55] LABS: ALB/GLOB Ratio 1.1 RATIO (0.9-2.4); AST(SGOT) 33 U/L (15-37); Alanine Aminotransfer ALT/SGPT 54 U/L (16-61); Albumin, Serum 3.9 g/dL (3.2-5.0); Alkaline Phosphatase 79 U/L (45-117); Anion Gap 11 (5-15); BUN 17 mg/dL (7-18); BUN/Creat Ratio 15.5 RATIO (10-20); Calcium,Total 9.6 mg/dL (8.5-10.1); Chloride 103 mmol/L (98-107); EST Glomerular Filtration Rate 69 mL/min (>60); Est Glom Filt Rate - Afr Amer 84 mL/min (>60); Estimated Creatinine Clearance 56.42 ml/min; Globulin 3.7 g/dL (2.2-4.2); Glucose 118 mg/dL (74-106); Potassium 3.7 mmol/L (3.5-5.1); Protein, Total 7.6 g/dL (6.4-8.2); Sodium Level 138 mmol/L (136-145)
--- NOTE | 2023-12-08 13:55 | RAD_ITS ---
STUDY: X-RAY CHEST REASON FOR EXAM: Male, 73 years old. Weakness TECHNIQUE: Single AP portable view of the chest. COMPARISON: Comparison is made with prior study dated July 30, 2023. FINDINGS: Hyperinflation. Scattered calcified granulomas. There is no demonstrated pleural abnormality. Normal size heart. Normal mediastinum and gale. There is prominence of the pulmonary hilar arteries without peripheral pulmonary vascular congestion, suggesting pulmonary hypertension. There is atherosclerotic calcification of the aortic arch with tortuosity. There are diffuse degenerative changes of the visualized thoracic spine. Normal visualized ribs, clavicles, and shoulders. There is no demonstrated abnormality of the visualized soft tissue structures of the upper abdomen. RAD/Chest 1 View (Portable) IMPRESSION: Hyperinflation. Scattered calcified granulomas. Prominence of the central pulmonary arteries. Electronically Signed: Jasson Plata MD at 14:11 EDT ,
[2023-12-08 14:04] LABS: International Normalized Ratio 1.1
[2023-12-08 15:05] VITALS: BP 182/93; PULSE 82; RESP 18; TEMP 36.5; O2SAT 96
== END 2023-12-08 15:19 | disposition home or self-care (01) ==
PROVIDERS: Emergency Provider Emergency Medicine; PCP Internal Medicine; Visit Provider Emergency Medicine
DX: R19.7 Diarrhea, unspecified (principal); J44.9 Chronic obstructive pulmonary disease, unspecified; I48.91 Unspecified atrial fibrillation; E11.9 Type 2 diabetes mellitus without complications; Z86.73 Personal history of transient ischemic attack (TIA), and cerebral infarction without residual deficits; Z87.891 Personal history of nicotine dependence
CPT/HCPCS: 71045; 80053; 85025; 85610; 93005; 99283

== ENCOUNTER 2024-01-03 20:10 | Emergency (ER) | payer MEDICARE, MEDICAID, SELFPAY ==
[2024-01-03 20:12] VITALS: BP 198/133; PULSE 87; RESP 18; TEMP 36.6; O2SAT 93
--- NOTE | 2024-01-03 21:28 | ED.VIS.LOWEX ---
HPI History of Present Illness Chief Complaint: Fall Narrative Narrative: 23-year-old male presenting with right leg pain. He states he tripped between the toilet and the bathtub injuring his left tibia. He is able to ambulate but it hurts. No lacerations. No numbness or tingling. [facility] Medical History Closed fracture of right inferior pubic ramus Acute UTI COPD (chronic obstructive pulmonary disease) UTI (urinary tract infection) Depression Diabetes Kidney stones Chronic pain Pancreatitis On home oxygen therapy Irregular heart beat Atrial fibrillation Stroke/cerebrovascular accident Smoker Falls frequently Seizures Sleep apnea COPD (chronic obstructive pulmonary disease) Asthma High cholesterol Tobacco abuse Home Medications ?Medication ?Instructions ?Recorded ?Last Taken ?Type tamsulosin 0.4 mg capsule 0.4 mg PO QHS bph 01/26/14 03/28/23 History finasteride 5 mg tablet 5 mg PO DAILY prostate 11/14/14 03/28/23 History atorvastatin 40 mg tablet 40 mg PO QHS Cholesterol 09/23/15 03/28/23 History mirtazapine 15 mg tablet 15 mg PO QHS anti depressant 08/16/19 03/28/23 History clopidogrel 75 mg tablet 75 mg PO DAILY blood thinner 10/25/19 03/28/23 History losartan 100 mg tablet 100 mg PO DAILY Blood pressure 08/19/21 03/28/23 History pantoprazole 40 mg tablet,delayed 40 mg PO DAILY GERD 08/19/21 03/28/23 History release nifedipine 90 mg tablet,extended 90 mg PO DAILY blood pressure 11/25/21 03/28/23 History release alendronate 70 mg tablet 70 mg PO QWEEK #1 TAB 11/30/21 03/28/23 Rx metoprolol tartrate 25 mg tablet 25 mg PO DAILY Blood pressure 03/30/23 03/28/23 History sennosides 8.6 mg-docusate sodium 2 tab PO BID PRN PRN Constipation 04/04/23 Unknown Rx 50 mg tablet (Stool #0 tabs Softener-Stimulant Laxative) acetaminophen 500 mg tablet 1,000 mg (2 x 500 mg) PO Q8 30 07/26/23 Unknown Rx days #0 tabs oxycodone 5 mg tablet 5 - 10 mg (1 - 2 x 5 mg) PO Q4H 08/02/23 Unknown Rx PRN PRN Pain Score 6-10 2 days #10 tabs albuterol sulfate 90 mcg/actuation 1 puff inhalation Q8H 08/22/23 Unknown History aerosol inhaler aluminum-magnesium hydroxide 225 30 ml PO Q4H PRN 08/22/23 Unknown History mg-200 mg/5 mL oral suspension carbamazepine 200 mg 200 mg PO Q12H 08/22/23 Unknown History tablet,extended release,12 hr cholecalciferol (vitamin D3) 50 50 mcg PO DAILY 08/22/23 Unknown History mcg (2,000 unit) tablet clonidine HCl 0.1 mg tablet 0.1 mg PO BID 08/22/23 Unknown History guaifenesin 100 mg/5 mL oral liquid 200 mg PO Q4H PRN 08/22/23 Unknown History guaifenesin 400 mg tablet 400 mg PO BID PRN 08/22/23 Unknown History sertraline 100 mg tablet 100 mg PO DAILY 08/22/23 Unknown History Allergy/AdvReac Type Severity Reaction Status Date / Time No Known Allergies Allergy Verified 01/03/24 20:12 Family History Other Heart disease Surgical History S/P arterial stent History of appendectomy Social History household members: none Smoking Status: Former smoker how long ago did patient quit smoking: Has not smoked in 7 weeks alcohol intake: former details: Former alcoholic quit several years ago substance use type: does not use caffeine: Yes Type: coffee Number of servings: 3 ROS ROS ED Constitutional Constitutional ED: Denies chills, fever(s) or sweats Eyes Eyes: Denies blurry vision or change in vision ENT ENT ED: Denies ear pain or sore throat Cardiovascular Cardiovascular: Denies chest pain, palpitations or racing heartbeat Respiratory/Chest Respiratory/Chest: Denies cough, dyspnea or sputum Gastrointestinal Gastrointestinal: Denies abdominal pain, constipation, diarrhea, nausea or vomiting Genitourinary Genitourinary ED: Denies dysuria, hematuria or urinary frequency Musculoskeletal Musculoskeletal: Reports other Details: Right tibial pain ; Denies arthralgias, myalgias or neck pain Integumentary Denies abscess, Abrasions or rash Neurologic Neurologic: Denies headache(s), paresthesias or weakness Psychiatric Psychiatric: Denies anxiety, depression, suicidal ideation or suicidal thoughts Endocrine Endocrinology: Denies polydipsia or polyuria EXAM Physical Exam Const Vital Signs: 01/03/24 20:12 01/03/24 21:02 Temperature 97.9 F Temperature Source Temporal Pulse Rate 87 Respiratory Rate 18 Respiratory Effort Normal Non-Labored Respiratory Depth Normal Respiratory Pattern Normal Blood Pressure 198/133 H Blood Pressure Mean 154 Pulse Ox 93 Oxygen Delivery Method Room Air Room Air Positive well nourished General Appearance ED: NAD HEENT Reports moist mucous membranes normocephalic Resp normal respiratory effort Cardio regular rate and regular rhythm Extremity Extremity Narrative: There is an area of redness and swelling over the distal tibia no obvious deformity. Tender to palpation. Neuro oriented x3, CN's II-XII intact bilaterally, moves all extremities and no sensory deficits noted Sensorium / Orientation: alert Psych mental status grossly normal MDM MDM MDM Narrative Medical decision making narrative: Patient senting with right leg pain. Differential tibial fracture tibial contusion. Patient request something for pain and was given [place]. X-rays of the tib-fib 2 views on my interpretation showed no acute fracture or subluxation. Patient counseled to ice, rest, elevation at home. He has a cane that he uses to ambulate. Discharged stable condition. Impression: 1. Lower extremity contusion Radiography Diagnostic Testing: Clinical Impression(s) from Imaging Studies Tibia/Fibula X-Ray 01/03/24 21:29 IMPRESSION: Negative right tibia and fibula x-rays. Electronically Signed: Charles Nielsen MD at 22:15 EDT , Discharge Plan Triage Chief Complaint: Fall ED Provider: Skip Adler Dx/Rx/DC Orders Instructions: ED Contusion, Lower Extremity Prescriptions: No Action albuterol sulfate 90 mcg/actuation HFA aerosol inhaler 1 puff inhalation Q8H aluminum-magnesium hydroxide 225-200 mg/5 mL suspension 30 ml PO Q4H PRN carbamazepine 200 mg tablet extended release 12 hr 200 mg PO Q12H guaifenesin 400 mg tablet 400 mg PO BID PRN guaifenesin 100 mg/5 mL liquid 200 mg PO Q4H PRN sertraline 100 mg tablet 100 mg PO DAILY cholecalciferol (vitamin D3) 50 mcg (2,000 unit) tablet 50 mcg PO DAILY clonidine HCl 0.1 mg tablet 0.1 mg PO BID tamsulosin 0.4 MG capsule 0.4 mg PO QHS Patient Comments: Prostate and urine finasteride 5 MG tablet 5 mg PO DAILY Patient Comments: prostate atorvastatin 40 MG tablet 40 mg PO QHS Patient Comments: CHOLESTEROL mirtazapine 15 MG tablet 15 mg PO QHS clopidogrel 75 MG tablet 75 mg PO DAILY losartan 100 mg tablet 100 mg PO DAILY pantoprazole 40 mg tablet,delayed release (DR/EC) 40 mg PO DAILY nifedipine 90 mg tablet extended release 90 mg PO DAILY alendronate 70 mg tablet 70 mg PO QWEEK Qty: 1 0RF metoprolol tartrate 25 mg tablet 25 mg PO DAILY sennosides-docusate sodium [Stool Softener-Stimulant Laxat] 8.6-50 mg Tablet 2 tab PO BID PRN PRN (Reason: Constipation) Qty: 0 0RF acetaminophen 500 mg Tablet 1,000 mg PO Q8 30 Days Qty: 0 0RF oxycodone 5 mg Tablet 5 - 10 mg PO Q4H PRN PRN (Reason: Pain Score 6-10) 2 Days Qty: 10 0RF Primary Care Provider: Daija Douglas Referrals: Daija Douglas MD [Primary Care Provider] - Print Language: Sinhala Disposition Disposition: Home, Self Care
--- NOTE | 2024-01-03 21:29 | RAD_ITS ---
EXAM: XR RIGHT TIBIA AND FIBULA, 2 VIEWS CLINICAL INDICATION: pain TECHNIQUE: Frontal and lateral views of the right tibia and fibula. COMPARISON: No relevant prior studies available. FINDINGS: BONES/JOINTS: Unremarkable. No acute fracture. No subluxation. Normal alignment. Preservation of the joint space. No sclerotic or destructive changes observed. SOFT TISSUES: Unremarkable. No soft tissue swelling or gas. No radiopaque foreign body. RAD/Tibia & Fibula 2 Views IMPRESSION: Negative right tibia and fibula x-rays. Electronically Signed: Charles Nielsen MD at 22:15 EDT ,
[2024-01-03] MEDS: HYDROcodone Bitartrate/Apap 5/325 Tablet PO (21:39)
[2024-01-03 22:29] VITALS: BP 124/71; PULSE 71; RESP 16; TEMP 36.6; O2SAT 99
== END 2024-01-03 22:30 | disposition home or self-care (01) ==
PROVIDERS: Emergency Provider Student in an Organized Health Care Education/Training Program; PCP Internal Medicine; Visit Provider Student in an Organized Health Care Education/Training Program
DX: S80.11XA Contusion of right lower leg, initial encounter (principal); J44.9 Chronic obstructive pulmonary disease, unspecified; E11.9 Type 2 diabetes mellitus without complications; Z86.73 Personal history of transient ischemic attack (TIA), and cerebral infarction without residual deficits; Z87.891 Personal history of nicotine dependence; X58.XXXA Exposure to other specified factors, initial encounter
CPT/HCPCS: 73590; 99282

== ENCOUNTER 2024-02-20 13:31 | Emergency (ER) | payer MEDICARE, MEDICAID, SELFPAY ==
[2024-02-20] VITALS (11 sets, daily range): BP systolic 188–222; BP diastolic 86–135; PULSE 57–78; RESP 16–18; TEMP 36.1–36.6; O2SAT 93–98
--- NOTE | 2024-02-20 16:15 | NURSING ---
[facility] [place] [facility] [phone]
--- NOTE | 2024-02-20 17:14 | EDS_ITS ---
HPI HPI - Fall History of Present Illness Chief Complaint: Fall PFSH PFSH Medical History Closed fracture of right inferior pubic ramus Acute UTI COPD (chronic obstructive pulmonary disease) UTI (urinary tract infection) Depression Diabetes Kidney stones Chronic pain Pancreatitis On home oxygen therapy Irregular heart beat Atrial fibrillation Stroke/cerebrovascular accident Smoker Falls frequently Seizures Sleep apnea COPD (chronic obstructive pulmonary disease) Asthma High cholesterol Tobacco abuse Home Medications ?Medication ?Instructions ?Recorded ?Last Taken ?Type tamsulosin 0.4 mg capsule 0.4 mg PO QHS bph 01/26/14 03/28/23 History finasteride 5 mg tablet 5 mg PO DAILY prostate 11/14/14 03/28/23 History atorvastatin 40 mg tablet 40 mg PO QHS Cholesterol 09/23/15 03/28/23 History mirtazapine 15 mg tablet 15 mg PO QHS anti depressant 08/16/19 03/28/23 History clopidogrel 75 mg tablet 75 mg PO DAILY blood thinner 10/25/19 03/28/23 History losartan 100 mg tablet 100 mg PO DAILY Blood pressure 08/19/21 03/28/23 History pantoprazole 40 mg tablet,delayed 40 mg PO DAILY GERD 08/19/21 03/28/23 History release nifedipine 90 mg tablet,extended 90 mg PO DAILY blood pressure 11/25/21 03/28/23 History release alendronate 70 mg tablet 70 mg PO QWEEK #1 TAB 11/30/21 03/28/23 Rx metoprolol tartrate 25 mg tablet 25 mg PO DAILY Blood pressure 03/30/23 03/28/23 History sennosides 8.6 mg-docusate sodium 2 tab PO BID PRN PRN Constipation 04/04/23 Unknown Rx 50 mg tablet (Stool #0 tabs Softener-Stimulant Laxative) acetaminophen 500 mg tablet 1,000 mg (2 x 500 mg) PO Q8 30 07/26/23 Unknown Rx days #0 tabs oxycodone 5 mg tablet 5 - 10 mg (1 - 2 x 5 mg) PO Q4H 08/02/23 Unknown Rx PRN PRN Pain Score 6-10 2 days #10 tabs albuterol sulfate 90 mcg/actuation 1 puff inhalation Q8H 08/22/23 Unknown History aerosol inhaler aluminum-magnesium hydroxide 225 30 ml PO Q4H PRN 08/22/23 Unknown History mg-200 mg/5 mL oral suspension carbamazepine 200 mg 200 mg PO Q12H 08/22/23 Unknown History tablet,extended release,12 hr cholecalciferol (vitamin D3) 50 50 mcg PO DAILY 08/22/23 Unknown History mcg (2,000 unit) tablet clonidine HCl 0.1 mg tablet 0.1 mg PO BID 08/22/23 Unknown History guaifenesin 100 mg/5 mL oral liquid 200 mg PO Q4H PRN 08/22/23 Unknown History guaifenesin 400 mg tablet 400 mg PO BID PRN 08/22/23 Unknown History sertraline 100 mg tablet 100 mg PO DAILY 08/22/23 Unknown History Allergy/AdvReac Type Severity Reaction Status Date / Time No Known Allergies Allergy Verified 02/20/24 13:34 Family History Other Heart disease Surgical History S/P arterial stent History of appendectomy Social History household members: none Smoking Status: Current some day smoker tobacco type: cigarettes how long ago did patient quit smoking: Has not smoked in 7 weeks alcohol intake: former details: Former alcoholic quit several years ago substance use type: does not use caffeine: Yes Type: coffee Number of servings: 3 EXAM Physical Exam Const Vital Signs: 02/20/24 13:34 02/20/24 15:32 02/20/24 17:00 Temperature 97 F L Temperature Source Temporal Pulse Rate 78 57 L 57 L Pulse Rate [Lying] Pulse Rate [Sitting (for 1 minute prior to obtaining)] Pulse Rate [Standing (for 1 minute prior to obtaining)] Respiratory Rate 18 16 16 Respiratory Effort Blood Pressure 206/106 H 217/101 H 205/108 H Blood Pressure [Lying] Blood Pressure [Sitting (for 1 minute prior to obtaining)] Blood Pressure [Standing (for 1 minute prior to obtaining)] Blood Pressure Mean 139 139 140 Blood Pressure Mean [Lying] Blood Pressure Mean [Sitting (for 1 minute prior to obtaining)] Blood Pressure Mean [Standing (for 1 minute prior to obtaining)] Pulse Ox 93 98 97 Oxygen Delivery Method Room Air Room Air Room Air 02/20/24 17:12 02/20/24 17:17 02/20/24 18:34 Temperature Temperature Source Pulse Rate Pulse Rate [Lying] 57 L Pulse Rate [Sitting (for 1 minute prior to obtaining)] 64 Pulse Rate [Standing (for 1 minute prior to obtaining)] 65 Respiratory Rate Respiratory Effort Normal Non-Labored Blood Pressure Blood Pressure [Lying] 204/135 H Blood Pressure [Sitting (for 1 minute prior to obtaining)] 213/93 H Blood Pressure [Standing (for 1 minute prior to obtaining)] 222/101 H Blood Pressure Mean Blood Pressure Mean [Lying] 158 Blood Pressure Mean [Sitting (for 1 minute prior to obtaining)] 133 Blood Pressure Mean [Standing (for 1 minute prior to obtaining)] 141 Pulse Ox 96 97 Oxygen Delivery Method Room Air Room Air 02/20/24 18:55 02/20/24 19:02 02/20/24 19:05 Temperature Temperature Source Pulse Rate 69 Pulse Rate [Lying] Pulse Rate [Sitting (for 1 minute prior to obtaining)] Pulse Rate [Standing (for 1 minute prior to obtaining)] Respiratory Rate Respiratory Effort Blood Pressure 206/93 H 211/86 H 198/86 H Blood Pressure [Lying] Blood Pressure [Sitting (for 1 minute prior to obtaining)] Blood Pressure [Standing (for 1 minute prior to obtaining)] Blood Pressure Mean 130 127 123 Blood Pressure Mean [Lying] Blood Pressure Mean [Sitting (for 1 minute prior to obtaining)] Blood Pressure Mean [Standing (for 1 minute prior to obtaining)] Pulse Ox Oxygen Delivery Method 02/20/24 21:00 Temperature Temperature Source Pulse Rate 59 L Pulse Rate [Lying] Pulse Rate [Sitting (for 1 minute prior to obtaining)] Pulse Rate [Standing (for 1 minute prior to obtaining)] Respiratory Rate Respiratory Effort Blood Pressure 188/86 H Blood Pressure [Lying] Blood Pressure [Sitting (for 1 minute prior to obtaining)] Blood Pressure [Standing (for 1 minute prior to obtaining)] Blood Pressure Mean 120 Blood Pressure Mean [Lying] Blood Pressure Mean [Sitting (for 1 minute prior to obtaining)] Blood Pressure Mean [Standing (for 1 minute prior to obtaining)] Pulse Ox 98 Oxygen Delivery Method Room Air MDM MDM MDM Narrative Medical decision making narrative: HISTORY OF PRESENT ILLNESS: 73-year-old male presents with frequent falls. Notes 3 falls last 24 hours. Notes he gets dizzy and falls. He notes especially when rising from a seated position after he takes a few steps he gets lightheaded and falls. He notes he lives alone. Denies head trauma. Denies loss of consciousness. Denies blood thinners. He further states for the last several days he is noted chest pain, shortness of breath, diarrhea and burning urination. No chest pain currently, no shortness of breath currently. He also endorses left knee pain. The patient denies recent surgery in the last 4 weeks or immobilization in the last 3 days, denies previous diagnosis of DVT or PE, hemoptysis, unilateral leg swelling or malignancy with treatment the last 6 months or palliative. No estrogen use noted. Patient denies sudden onset of pain, no tearing sensation, no migratory symptoms, no new numbness, weakness or loss of sensation. Patient denies family history or personal history of Connective tissue disorders (Marfan's Syndrome, Maria Fernanda Danlos etc) REVIEW OF SYSTEMS: Pertinent positives: Dizziness, chest pain, short of breath, diarrhea, burning with urination Pertinent negatives: Leg swelling PHYSICAL EXAM: Nursing triage notes reviewed, Vital signs reviewed Constitutional: please see mdm HENT: MMM Eyes: Pupils equal round and reactive to light, Extraocular muscles intact Neck: No stridor, no JVD, full neck ROM Lungs: Clear to auscultation, No wheezing or rales. No increased work of breathing, no conversational dyspnea, no accessory muscle use, no nasal flaring. No respiratory distress noted Heart: Regular rate and rhythm, No murmurs, No rubs and No gallops, 2+ distal pulses (radial, femoral, posterior tibial) in all extremities Abdomen: Soft, there is no tenderness, rigidity, rebound or guarding, no obvious peritoneal signs, no palpable pulsatile abdominal masses, no auscultated abdominal bruit : No CVAT Extremities: No edema Neuro: Alert and oriented x3, neuro exam at baseline, cranial nerves II through XII are intact. No pain with extraocular muscle movement. There is negative test of skew. 5 of 5 strength in upper and lower extremities in flexion extension. Intact sensation to light touch in upper and lower extremity dermatomes. No truncal or extremity ataxia. No dysdiadochokinesia. Normal gait. 2+ reflexes in upper and lower extremities. No meningeal signs. Negative Babinski. NIH of 0. Skin: No rash or lesions noted MEDICAL DECISION MAKING: Chief Complaint: Frequent falls External records reviewed: Imaging reviewed: Factors affecting care: GI bleed, COPD, peripheral vascular disease, history of seizures, hyperlipidemia, Social determinants of health: none History obtained from others: none Consults: none [facility] Narrative: The patient was initially hypertensive otherwise afebrile and nontoxic- appearing. No focal neurologic deficits on exam. NIH of 0. I considered the following differential diagnosis: ICH, mass, injury to the thoracic cervical spine, injury to the left knee or femur, ACS, arrhythmia, anemia, drug intoxication, alcohol intoxication I obtained a broad lab and imaging workup to further elucidate etiology patient complaint ALL IMAGES (IF OBTAINED) HAVE BEEN PERSONALLY REVIEWED AND INTERPRETED BY M YSELF. EKG with normal sinus rhythm, normal axis, normal intervals, no STEMI BMP without significant electrolyte abnormality, no FLEX, no evidence of metabolic acidosis or endorgan hypoperfusion Lipase is wnl indicating no pancreatic inflammation. High-sensitivity troponin is negative, no evidence of myocardial ischemia x 2 CBC without leukocytosis, severe anemia, no thrombocytopenia. Urine tox screen negative Serum alcohol negative CT scan of the head, cervical and thoracic spine showed no evidence of acute traumatic injury X-rays of the chest, left knee and left femur were read reviewed person by myself showed no evidence of obvious intrathoracic process such as pneumonia or pneumothorax, did not show any evidence of bony injury to the left femur left knee as well. Radiology agrees my interpretation On reevaluation. The patient ambulated here without significant difficulty. We provided him with a walker which greatly improved his stability. I suspect his presentation is secondary to advanced age and relative deconditioning. He was able to ambulate here. Was offered admission Aguirre alert and orient x 3 he had capacity to make his own medical decisions and chose to be discharged home and will of admission at this time stating he feels much better walking with a walker In terms of patient's blood pressure he was given a dose of IV hydralazine here which improved his blood pressure. He was encouraged to continue to take his home blood pressure medicine including nifedipine, Toprol, losartan. He was encouraged follow with his primary care physician for further antihypertensive titration as an outpatient The patient and/or family, caregivers express understanding. The patient and/or family, caregivers agrees with the plan. Shared decision making: I will have a discussion with the patient and or visitors regarding risk/benefits of further testing or admission. They will be made aware of of the risk/benefits inherent in this decision they will be given the opportunity to voice understanding. Total critical care time today provided was at least 0 minutes. This excludes separately billable procedures. Critical care time (if documented) is secondary to the patient having high probability of clinically significant/life threatening deterioration in the patient's condition which required my urgent intervention. Impression: 1. Gait abnormality 2. Deconditioning 3. Elevated blood pressure 4. History of hypertension Dispo: Discharge home This note was generated with [employer] dictation software. It may contain incorrect words, spelling, and punctuation that were not noted in review of the chart prior to signing. Lab Data Labs: Laboratory Results - last 24 hr 02/20/24 02/20/24 02/20/24 17:14 17:25 18:20 WBC 6.6 RBC 5.35 Hgb 17.1 H Hct 51.8 MCV 96.8 H MCH 32.0 MCHC 33.0 RDW Std Deviation 47.1 H RDW Coeff of Aly 13.2 Plt Count 307 MPV 9.8 Sodium 137 Potassium 4.3 Chloride 98 Carbon Dioxide 30.0 Anion Gap 9 BUN 18 Creatinine 1.35 H Est GFR (MDRD) Af Amer 66 Est GFR (MDRD) Non-Af 55 L BUN/Creatinine Ratio 13.3 Glucose 84 Calcium 10.7 H Troponin I High Sens 14 Lipase 23 Urine Color Yellow Urine Clarity Sl. Cloudy Urine pH 6.0 Ur Specific Lyles 1.020 Urine Protein 30 H Urine Glucose (UA) Normal Urine Ketones 5 H Urine Occult Blood Negative Urine Nitrite Negative Urine Bilirubin Negative Urine Urobilinogen Normal Ur Leukocyte Esterase 25 H Urine RBC 0 SEEN Urine WBC 0-5 SEEN Ur Squamous Epith Cells 0-5 SEEN Ur Renal Epithelial Cell 0-5 SEEN Urine Bacteria 3+ Urine Mucus 0 SEEN Urine Opiates Screen NEGATIVE Urine Methadone Screen NEGATIVE Ur Barbiturates Screen NEGATIVE Ur Phencyclidine Scrn NEGATIVE Ur Amphetamines Screen NEGATIVE MDMA (Ecstasy) Screen NEGATIVE U Benzodiazepines Scrn NEGATIVE Urine Cocaine Screen NEGATIVE U Cannabinoids Screen NEGATIVE Ur Drug Screen Comment Ethyl Alcohol < 3.0 POC Glucose 83 02/20/24 20:00 WBC RBC Hgb Hct MCV MCH MCHC RDW Std Deviation RDW Coeff of Aly Plt Count MPV Sodium Potassium Chloride Carbon Dioxide Anion Gap BUN Creatinine Est GFR (MDRD) Af Amer Est GFR (MDRD) Non-Af BUN/Creatinine Ratio Glucose Calcium Troponin I High Sens 18 Lipase Urine Color Urine Clarity Urine pH Ur Specific Lyles Urine Protein Urine Glucose (UA) Urine Ketones Urine Occult Blood Urine Nitrite Urine Bilirubin Urine Urobilinogen Ur Leukocyte Esterase Urine RBC Urine WBC Ur Squamous Epith Cells Ur Renal Epithelial Cell Urine Bacteria Urine Mucus Urine Opiates Screen Urine Methadone Screen Ur Barbiturates Screen Ur Phencyclidine Scrn Ur Amphetamines Screen MDMA (Ecstasy) Screen U Benzodiazepines Scrn Urine Cocaine Screen U Cannabinoids Screen Ur Drug Screen Comment Ethyl Alcohol POC Glucose Radiography Diagnostic Testing: Clinical Impression(s) from Imaging Studies Brain CT 02/20/24 17:20 IMPRESSION: Chronic involutional changes of the brain. Electronically Signed: Jaden Aguirre MD at 18:40 EDT , Cervical Spine CT 02/20/24 17:20 IMPRESSION: Multilevel degenerative changes, as described above. Electronically Signed: Jaden Aguirre MD at 18:43 EDT Reading Location ID and State: [facility] / [place] , Service support , Femur X-Ray 02/20/24 17:20 IMPRESSION: Demineralization. No fracture seen. Electronically Signed: Jaden Aguirre MD at 18:56 EDT Reading Location ID and State: [facility] / [place] , Service support , Knee X-Ray 02/20/24 17:20 IMPRESSION: Degenerative arthrosis. Electronically Signed: Jaden Aguirre MD at 18:53 EDT , Thoracic Spine CT 02/20/24 17:20 IMPRESSION: Degenerative change. Chronic T11 compression fracture. No acute thoracic fracture. Electronically Signed: Jaden Aguirre MD at 18:51 EDT , Chest X-Ray 02/20/24 17:21 IMPRESSION: Degenerative changes, as described above. No demonstrated acute cardiopulmonary process. Electronically Signed: Jaden Aguirre MD at 19:02 EDT , Discharge Plan Triage Chief Complaint: Fall ED Provider: Olayinka Cordova Dx/Rx/DC Orders Instructions: ED Fall Prevention Prescriptions: No Action albuterol sulfate 90 mcg/actuation HFA aerosol inhaler 1 puff inhalation Q8H aluminum-magnesium hydroxide 225-200 mg/5 mL suspension 30 ml PO Q4H PRN carbamazepine 200 mg tablet extended release 12 hr 200 mg PO Q12H guaifenesin 400 mg tablet 400 mg PO BID PRN guaifenesin 100 mg/5 mL liquid 200 mg PO Q4H PRN sertraline 100 mg tablet 100 mg PO DAILY cholecalciferol (vitamin D3) 50 mcg (2,000 unit) tablet 50 mcg PO DAILY clonidine HCl 0.1 mg tablet 0.1 mg PO BID tamsulosin 0.4 MG capsule 0.4 mg PO QHS Patient Comments: Prostate and urine finasteride 5 MG tablet 5 mg PO DAILY Patient Comments: prostate atorvastatin 40 MG tablet 40 mg PO QHS Patient Comments: CHOLESTEROL mirtazapine 15 MG tablet 15 mg PO QHS clopidogrel 75 MG tablet 75 mg PO DAILY losartan 100 mg tablet 100 mg PO DAILY pantoprazole 40 mg tablet,delayed release (DR/EC) 40 mg PO DAILY nifedipine 90 mg tablet extended release 90 mg PO DAILY alendronate 70 mg tablet 70 mg PO QWEEK Qty: 1 0RF metoprolol tartrate 25 mg tablet 25 mg PO DAILY sennosides-docusate sodium [Stool Softener-Stimulant Laxat] 8.6-50 mg Tablet 2 tab PO BID PRN PRN (Reason: Constipation) Qty: 0 0RF acetaminophen 500 mg Tablet 1,000 mg PO Q8 30 Days Qty: 0 0RF oxycodone 5 mg Tablet 5 - 10 mg PO Q4H PRN PRN (Reason: Pain Score 6-10) 2 Days Qty: 10 0RF Primary Care Provider: Daija Douglas Referrals: Daija Douglas MD [Primary Care Provider] - Activity Restrictions/Additional Instructions: Thank you for trusting us with your care today! Please take Tylenol (2 pills, 650 mg), ibuprofen (2 pills, 400 mg) every 6 hours as needed for pain and fever control. Please return to the emergency department if your symptoms change or worsen. Please follow with your primary care physician for further outpatient evaluation and management. Specifically of elevated blood pressure reading Print Language: [place] Disposition Disposition: Home, Self Care
--- NOTE | 2024-02-20 17:20 | RAD_ITS ---
STUDY: X-RAY - LEFT FEMUR REASON FOR STUDY: Male, 73 years old. Pain. TECHNIQUE: 2 view(s) of the femur. COMPARISON: None. FINDINGS: There is diffuse demineralization of the femur. There is no acute fracture. There are vascular calcifications. RAD/Femur Min 2 Views IMPRESSION: Demineralization. No fracture seen. Electronically Signed: Jaden Aguirre MD at 18:56 EDT ,
--- NOTE | 2024-02-20 17:20 | CT_ITS ---
STUDY: CT THORACIC SPINE WITHOUT CONTRAST REASON FOR EXAM: Male, 73 years old. Back pain RADIATION DOSAGE (If Supplied By Facility): CTDIvol = ( 18.51 ) mGy, DLP = ( 699.57 ) mGycm TECHNIQUE: The patient was scanned in a multi detector CT scanner. High resolution imaging was performed. Images were obtained from C7 to L1. Sagittal and coronal images were reconstructed. Individualized dose optimization techniques were used for this CT. COMPARISON: March 30, 2023 FINDINGS: Normal visualized cervical spine. There is an increased kyphosis of the thoracic spine. There is no substantial scoliosis. There is multilevel endplate spondylosis of the thoracic spine. There is stable T11 compression fracture with 10% loss of height of the superior endplate and mild sclerosis. There is L2 compression fracture of uncertain age extending beyond the [id number]. The soft tissue structures are unremarkable. There is emphysema and fibrotic densities of the lungs. CT/Spine Thoracic without Contras IMPRESSION: Degenerative change. Chronic T11 compression fracture. No acute thoracic fracture. Electronically Signed: Jaden Aguirre MD at 18:51 EDT ,
--- NOTE | 2024-02-20 17:20 | RAD_ITS ---
STUDY: X-RAY - LEFT KNEE REASON FOR EXAM: Male, 73 years old. Pain TECHNIQUE: 2 view(s) of the knee. COMPARISON: None. FINDINGS: There is demineralization of the visualized distal femur. There is demineralization of the tibia and fibula. Normal proximal tibiofibular articulation. There is no demonstrated fracture. There is mild degenerative arthrosis of the medial femorotibial compartment. Normal lateral femorotibial compartment. Normal patellofemoral articulation. There are atherosclerotic calcifications. RAD/Knee 1 or 2 Views IMPRESSION: Degenerative arthrosis. Electronically Signed: Jaden Aguirre MD at 18:53 EDT ,
--- NOTE | 2024-02-20 17:20 | CT_ITS ---
STUDY: CT CERVICAL SPINE WITHOUT CONTRAST REASON FOR EXAM: Male, 73 years old. Neck pain after fall RADIATION DOSAGE (If Supplied By Facility): CTDIvol = ( 13.89 ) mGy, DLP = ( 297.49 ) mGycm TECHNIQUE: High resolution transaxial imaging was performed without contrast material. Sagittal and coronal images were reconstructed. Individualized dose optimization techniques were used for this CT. COMPARISON: None FINDINGS: Normal craniovertebral junction. Normal anterior atlantoaxial articulation. Normal odontoid process. There is an exaggerated cervical lordosis. Normal vertebral bodies and posterior osseous elements. There is no acute fracture. C2-3: Normal endplates. Normal disc height and morphology. Normal central canal and intervertebral neuroforamina. C3-4: Mild spurring. Mild facet spurring. Normal central canal and intervertebral neuroforamina. C4-5: Normal endplates. Normal disc height and morphology. Normal central canal and intervertebral neuroforamina. C5-6: Disc space narrowing. Spurring. Facet spurring on the right. No canal stenosis. Right foraminal narrowing. C6-7: Disc space narrowing. Spurring. Facet spurring. No canal stenosis. Bilateral foraminal narrowing. C7-T1: Normal endplates. Normal disc height and morphology. Normal central canal and intervertebral neuroforamina. Normal visualized soft tissue structures. There are atherosclerotic calcifications. CT/Spine Cervical without Contras IMPRESSION: Multilevel degenerative changes, as described above. Electronically Signed: Jaden Aguirre MD at 18:43 EDT ,
--- NOTE | 2024-02-20 17:20 | CT_ITS ---
STUDY: CT BRAIN WITHOUT CONTRAST REASON FOR EXAM: Male, 73 years old. Fall, head trauma RADIATION DOSAGE (If Supplied By Facility): CTDIvol = ( 44.99 ) mGy, DLP = ( 829.85 ) mGycm TECHNIQUE: Transaxial CT imaging of the brain was performed without administration of intravenous contrast material. Individualized dose optimization techniques were used for this CT. COMPARISON: July 30, 2023. FINDINGS: Normal soft tissue structures. Normal calvarium. There is mild cerebral atrophy with widening of the extra-axial spaces and ventricular dilatation. There are moderate areas of decreased attenuation within the white matter tracts of the supratentorial brain, consistent with microvascular disease changes. There is stable 2.3 cm arachnoid cyst of the left middle cranial fossa. There is right thalamic infarct. Normal brainstem. Normal cerebellum. There is no intracranial hemorrhage. There are no findings of an acute ischemic infarction. There are atherosclerotic calcifications. Normal visualized paranasal sinuses. CT/Brain/Head without Contrast IMPRESSION: Chronic involutional changes of the brain. Electronically Signed: Jaden Aguirre MD at 18:40 EDT ,
--- NOTE | 2024-02-20 17:21 | RAD_ITS ---
STUDY: X-RAY CHEST REASON FOR EXAM: Male, 73 years old. Dizziness TECHNIQUE: Single AP portable view of the chest. COMPARISON: December 08, 2023 FINDINGS: There are monitoring devices. The lungs are clear and hyper expanded. There is no demonstrated pleural abnormality. Normal size heart. Normal mediastinum and gale. Normal visualized pulmonary arteries. There is atherosclerotic calcification of the aortic arch with tortuosity. There is demineralization of the osseous structures. There are healed left rib fractures. There is no demonstrated abnormality of the visualized soft tissue structures of the upper abdomen. RAD/Chest 1 View (Portable) IMPRESSION: Degenerative changes, as described above. No demonstrated acute cardiopulmonary process. Electronically Signed: Jaden Aguirre MD at 19:02 EDT ,
[2024-02-20] MEDS: Ondansetron 4 MG/2 ML Vial IV (17:32)
[2024-02-20] MEDS: 0.9% Normal Saline (1000mL) 1,000 ML 1000 ML IV (17:32)
[2024-02-20 17:33] LABS: Hematocrit 51.8 % (40-54); Hemoglobin 17.1 g/dL (13.0-16.5); Mean Corpuscular Volume 96.8 fL (80-94); Mean Platelet Vol. 9.8 fl (6.2-12.0); Platelet Count 307 K/mm3 (150-450); RBC Distribution Width CV 13.2 % (11.6-14.6); RBC Distribution Width SD 47.1 fl (35.1-43.9); Red Blood Count 5.35 M/mm3 (4.6-6.2); White Blood Count 6.6 K/mm3 (4.4-11.0)
[2024-02-20 17:36] LABS: Bedside Glucose 83 mg/dL (74-106)
[2024-02-20 18:00] LABS: Anion Gap 9 (5-15); BUN 18 mg/dL (7-18); BUN/Creat Ratio 13.3 RATIO (10-20); Calcium,Total 10.7 mg/dL (8.5-10.1); Chloride 98 mmol/L (98-107); Creatinine, Serum 1.35 mg/dL (0.70-1.30); EST Glomerular Filtration Rate 55 mL/min (>60); Est Glom Filt Rate - Afr Amer 66 mL/min (>60); Glucose 84 mg/dL (74-106); Lipase 23 U/L (13-75); Potassium 4.3 mmol/L (3.5-5.1); Sodium Level 137 mmol/L (136-145); Troponin-I HS (w/2H Reflex) 14 pg/mL (3.0-78.0)
[2024-02-20 18:25] LABS: Mucous, Urine 0 SEEN /hpf (<or=2+); Red Blood Cells-Urine 0 SEEN /hpf (0-5)
[2024-02-20 18:31] LABS: Color, Urine Yellow (Yellow); Glucose, Dipstick Normal (Normal); Ketone-Dipstick 5 mg/dl (Negative); Leukocyte Esterase-Dipstick 25 /ul (Negative); Nitrite-Dipstick Negative (Negative); Occult Blood-Urine Negative /ul (Negative); Protein-Dipstick 30 mg/dl (Negative); Urine Bilirubin Dipstick Negative (Negative); Urine Clarity Sl. Cloudy (Clear); Urine Urobilinogen Normal (Normal)
[2024-02-20 18:52] LABS: Amphetamine Urine VISTA NEGATIVE (<1000 ng/mL); Barbiturate Urine VISTA NEGATIVE (< 200 ng/mL); Benzodiazepine Urine VISTA NEGATIVE (< 200 ng/mL); Cocaine Urine VISTA NEGATIVE (< 300 ng/mL); Ecstacy Urine VISTA NEGATIVE (< 500 ng/mL); Methadone Urine VISTA NEGATIVE (< 300 ng/mL); PCP Urine VISTA NEGATIVE (< 25 ng/mL); THC Urine VISTA NEGATIVE (< 50 ng/mL); Vista UDS pH Range 4
[2024-02-20] MEDS: hydrALAZINE 20 MG/ML Vial 10 MG IV (18:54)
[2024-02-20 19:10] LABS: Bacteria 3+ /hpf (None Seen); White Blood Cells 0-5 SEEN /hpf (0-5)
[2024-02-20 19:12] LABS: Squamous Epithelial Cells - UA 0-5 SEEN /hpf (0-5)
[2024-02-20 19:13] LABS: Renal Epithelial Cells 0-5 SEEN /hpf (0-5)
[2024-02-20 19:29] LABS: Reflex Troponin-HS? (from REC) Y
[2024-02-20 19:39] LABS: Alcohol, Blood (Medical)-Serum < 3.0 mg/dL
[2024-02-20 20:48] LABS: Troponin-I HS 18 pg/mL (3.0-78.0)
[2024-02-20] MEDS: Acetaminophen 325 MG Tablet 650 MG PO (21:22)
== END 2024-02-20 21:32 | disposition home or self-care (01) ==
PROVIDERS: Emergency Provider Emergency Medicine; PCP Internal Medicine; Visit Provider Emergency Medicine
DX: R26.9 Unspecified abnormalities of gait and mobility (principal); J44.9 Chronic obstructive pulmonary disease, unspecified; E11.51 Type 2 diabetes mellitus with diabetic peripheral angiopathy without gangrene; I10 Essential (primary) hypertension; F17.210 Nicotine dependence, cigarettes, uncomplicated; Z86.73 Personal history of transient ischemic attack (TIA), and cerebral infarction without residual deficits
CPT/HCPCS: 70450; 71045; 72125; 72128; 73552; 73560; 80048; 80307; 81001; 82077; 82962; 83690; 84484; 85027; 93005; 96361; 96374; 96375; 96376; 99285; J7030; A4216; J2405

== ENCOUNTER 2024-04-06 11:07 | Inpatient (IN) | payer MEDICARE, MEDICAID, SELFPAY ==
[2024-04-06] VITALS (11 sets, daily range): BP systolic 146–201; BP diastolic 66–158; PULSE 64–85; RESP 16–18; TEMP 36.1–36.6; O2SAT 93–99; BMI 22.6; BMI 23.1
--- NOTE | 2024-04-06 12:04 | EKG12_ITS ---
Test Reason : FALL Blood Pressure : / mmHG Vent. Rate : 073 BPM Atrial Rate : 073 BPM P-R Int : 192 ms QRS Dur : 078 ms QT Int : 382 ms P-R-T Axes : 078 076 089 degrees QTc Int : 420 ms Sinus rhythm with Premature atrial complexes Otherwise normal ECG Confirmed by Juan Downey ([id number]), supervising film or videotape editor RAE NATH ([id number]) on 04/08/2024 11:27:15 AM Referred By: Confirmed By:Juan Downey
--- NOTE | 2024-04-06 12:04 | CT_ITS ---
INDICATION: fall EXAMINATION: CT BRAIN - CT Head or Brain W/O Contrast Injection TECHNIQUE: Multiple axial images were obtained of the head without intravenous contrast. The protocol utilizes one or more of the following dose reduction techniques: automated exposure control, adjustment of mA and/or kV according to patient size,and/or use of iterative reconstruction technique. IV Contrast dosage and agent: None. RADIATION DOSAGE (If Supplied By Facility): CTDIvol = ( 44.99 ) mGy, DLP = ( 829.85 ) mGycm COMPARISON: Prior study dated: 02/20/2024 FINDINGS: BRAIN PARENCHYMA: No intra- or extra-axial hemorrhage. No evidence of acute infarct. No intracranial mass or mass effect. There is preservation of the finley/white matter interface. Small old lacunar infarct in the right thalamus. Periventricular deep white matter changes likely due to chronic microvascular disease. Arachnoid cyst in the left temporal fossa is again seen. Atherosclerotic calcifications of the cavernous internal carotid arteries. Posterior fossa structures are unremarkable. CSF SPACES: Mild diffuse atrophy. No hydrocephalus. Basal cisterns are patent. CALVARIUM, SKULL BASE, PARANASAL SINUSES AND MASTOID AIR CELLS: Clear. No discrete lytic or blastic abnormalities. ORBITS: Both globes, extraocular muscles, optic nerves and retrobulbar fat appear essentially unremarkable. ASPECTS Score for Acute Strokes: 10 CT/Brain/Head without Contrast IMPRESSION: 1. No acute intracranial process. 2. Chronic involutional changes of the brain. 3. Old right thalamic lacunar infarct. Electronically Signed: Tomasz Lauren MD at 13:29 EDT ,
--- NOTE | 2024-04-06 12:04 | RAD_ITS ---
INDICATION: fall EXAMINATION/TECHNIQUE: X-RAY - XR Spine Thoracic 2 Views COMPARISON: CT scan of the thoracic spine of 02/20/2024 FINDINGS: VERTEBRAE: Preserved vertebral body height. No evidence of acute compression fracture deformity. Decreased height of lower thoracic vertebra appears to be chronic. No spondylolisthesis. Increased thoracic kyphosis. No substantial scoliosis. DISCS: Mild multilevel disc space narrowing. INCLUDED CHEST/ABDOMEN: No paravertebral soft tissue swelling. RAD/Thoracic Spine 2 Views IMPRESSION: No evidence of thoracic spinal fracture or spondylolisthesis. Electronically Signed: Tomasz Lauren MD at 14:30 EDT ,
--- NOTE | 2024-04-06 12:04 | RAD_ITS ---
INDICATION: fall EXAMINATION/TECHNIQUE: X-RAY - XR Spine Lumbar 2 or 3 Views COMPARISON: No relevant prior comparison study available FINDINGS: VERTEBRAE: Moderate to severe compression fractures of L2 and L3 vertebrae of undetermined age and appears to be chronic. Demineralization of the osseous structures. No spondylolisthesis. Preservation of the normal lumbar lordosis. No substantial scoliosis. DISCS: Disc spaces are maintained. INCLUDED ABDOMEN: Vascular stents the common iliac arteries bilaterally. RAD/Lumbar Spine 2 or 3 Views IMPRESSION: Moderate to severe compression fractures of L2 and L3 vertebrae of undetermined age and could be chronic. Electronically Signed: Tomasz Lauren MD at 14:33 EDT ,
--- NOTE | 2024-04-06 12:06 | ED.VIS.FALL ---
HPI HPI - Fall History of Present Illness Chief Complaint: Fall Detail of Chief Complaint: Fall/syncope Informant: patient and family Narrative Narrative: Patient presents the emergency department after a fall today. It is unclear exactly what happened but he states that he was in the living room by his couch when he fell onto the floor. He thinks maybe he passed out. He is a poor historian. Daughter is concerned that he also fell yesterday and thinks he keeps passing out. Patient denies chest pain or shortness of breath currently. He denies fever or recent illness. He does complain of back pain and a headache. He denies neck pain. [facility] Medical History Closed fracture of right inferior pubic ramus Acute UTI COPD (chronic obstructive pulmonary disease) UTI (urinary tract infection) Depression Diabetes Kidney stones Chronic pain Pancreatitis On home oxygen therapy Irregular heart beat Atrial fibrillation Stroke/cerebrovascular accident Smoker Falls frequently Seizures Sleep apnea COPD (chronic obstructive pulmonary disease) Asthma High cholesterol Tobacco abuse Home Medications ?Medication ?Instructions ?Recorded ?Last Taken ?Type tamsulosin 0.4 mg capsule 0.4 mg PO QHS bph 01/26/14 03/28/23 History finasteride 5 mg tablet 5 mg PO DAILY prostate 11/14/14 03/28/23 History atorvastatin 40 mg tablet 40 mg PO QHS Cholesterol 09/23/15 03/28/23 History mirtazapine 15 mg tablet 15 mg PO QHS anti depressant 08/16/19 03/28/23 History clopidogrel 75 mg tablet 75 mg PO DAILY blood thinner 10/25/19 03/28/23 History losartan 100 mg tablet 100 mg PO DAILY Blood pressure 08/19/21 03/28/23 History pantoprazole 40 mg tablet,delayed 40 mg PO DAILY GERD 08/19/21 03/28/23 History release nifedipine 90 mg tablet,extended 90 mg PO DAILY blood pressure 11/25/21 03/28/23 History release alendronate 70 mg tablet 70 mg PO QWEEK #1 TAB 11/30/21 03/28/23 Rx metoprolol tartrate 25 mg tablet 25 mg PO DAILY Blood pressure 03/30/23 03/28/23 History sennosides 8.6 mg-docusate sodium 2 tab PO BID PRN PRN Constipation 04/04/23 Unknown Rx 50 mg tablet (Stool #0 tabs Softener-Stimulant Laxative) acetaminophen 500 mg tablet 1,000 mg (2 x 500 mg) PO Q8 30 07/26/23 Unknown Rx days #0 tabs oxycodone 5 mg tablet 5 - 10 mg (1 - 2 x 5 mg) PO Q4H 08/02/23 Unknown Rx PRN PRN Pain Score 6-10 2 days #10 tabs albuterol sulfate 90 mcg/actuation 1 puff inhalation Q8H 08/22/23 Unknown History aerosol inhaler aluminum-magnesium hydroxide 225 30 ml PO Q4H PRN 08/22/23 Unknown History mg-200 mg/5 mL oral suspension carbamazepine 200 mg 200 mg PO Q12H 08/22/23 Unknown History tablet,extended release,12 hr cholecalciferol (vitamin D3) 50 50 mcg PO DAILY 08/22/23 Unknown History mcg (2,000 unit) tablet clonidine HCl 0.1 mg tablet 0.1 mg PO BID 08/22/23 Unknown History guaifenesin 100 mg/5 mL oral liquid 200 mg PO Q4H PRN 08/22/23 Unknown History guaifenesin 400 mg tablet 400 mg PO BID PRN 08/22/23 Unknown History sertraline 100 mg tablet 100 mg PO DAILY 08/22/23 Unknown History Allergy/AdvReac Type Severity Reaction Status Date / Time No Known Allergies Allergy Verified 04/06/24 11:12 Family History Other Heart disease Surgical History S/P arterial stent History of appendectomy Social History household members: none Smoking Status: Current some day smoker tobacco type: cigarettes how long ago did patient quit smoking: Has not smoked in 7 weeks alcohol intake: former details: Former alcoholic quit several years ago substance use type: does not use caffeine: Yes Type: coffee Number of servings: 3 ROS ROS ED Review of Systems ROS Unobtainable: other Constitutional Constitutional ED: Reports lethargy; Denies chills, fever(s), sweats or weight loss Eyes Eyes: Denies blurry vision, change in vision or diplopia ENT ENT ED: Denies rhinorrhea or sore throat Cardiovascular Cardiovascular: Reports chest pain and racing heartbeat; Denies orthopnea Respiratory/Chest Respiratory/Chest: Reports dyspnea and dyspnea on exertion; Denies cough, orthopnea or sputum Gastrointestinal Gastrointestinal: Denies abdominal pain, diarrhea, nausea or vomiting Genitourinary Genitourinary ED: Denies dysuria, hematuria or urinary frequency Musculoskeletal Musculoskeletal: Reports back pain; Denies arthralgias, myalgias or neck pain Integumentary Denies abscess, Abrasions or rash Neurologic Neurologic: Reports headache(s) and other Details: Syncope ; Denies weakness Psychiatric Psychiatric: Denies anxiety, depression or suicidal thoughts Endocrine Endocrinology: Denies polydipsia, polyphagia or polyuria Hematologic/Lymphatic Hematologic/Lymphatic: Denies easy bleeding, easy bruising or lymphadenopathy Allergic/Immunologic Allergic/Immunologic ED: Denies mouth swelling, tongue swelling or urticaria EXAM Physical Exam Const Vital Signs: 04/06/24 11:08 04/06/24 11:24 04/06/24 11:46 Temperature 98 F Temperature Source Oral Pulse Rate 85 Respiratory Rate 16 Respiratory Effort Normal Non-Labored Respiratory Depth Normal Respiratory Pattern Normal Blood Pressure 196/147 H 201/91 H Blood Pressure Mean 163 127 Pulse Ox 96 96 Oxygen Delivery Method Room Air Room Air 04/06/24 13:00 04/06/24 13:22 04/06/24 13:27 Temperature Temperature Source Pulse Rate 72 68 Respiratory Rate Respiratory Effort Respiratory Depth Respiratory Pattern Blood Pressure 194/158 H 197/84 H 191/80 H Blood Pressure Mean 165 121 117 Pulse Ox Oxygen Delivery Method 04/06/24 14:45 Temperature Temperature Source Pulse Rate Respiratory Rate Respiratory Effort Respiratory Depth Respiratory Pattern Blood Pressure 177/139 H Blood Pressure Mean 152 Pulse Ox Oxygen Delivery Method Positive well nourished and well developed General Appearance ED: well developed and NAD HEENT Reports TM's clear and moist mucous membranes normocephalic and atraumatic; Negative for trauma or tenderness Tympanic Membrane ED: Yes TM's clear Eyes PERRL and EOMs intact bilaterally General Eye ED: Negative for pale conjunctiva or scleral icterus Neck no lymphadenopathy, supple and no JVD Neck Narrative: Mild diffuse tenderness over the cervical spine. There is no bony step-offs or depressions. Has good range of motion. General: tenderness Chest Wall inspection of chest normal and palpation of chest normal Chest: Negative for tenderness Resp normal respiratory effort and clear to auscultation bilaterally Effort and Inspection: Negative for respiratory distress or pain with movement Auscultation: Negative for rhonchi, wheezes or diminished lung sounds Cardio regular rate, regular rhythm, S1 normal heart sound, S2 normal heart sound and no murmurs Peripheral Pulses: pulses 2+ throughout GI normal to inspection, nondistended, normoactive bowel sounds, soft to palpation, non-tender, non-distended and no masses Back/Spine no CVA tenderness Back/Spine Narrative: Patient with mild diffuse tenderness over thoracic and lumbar spine. Patient also tenderness over the left lumbar paraspinal musculature. Negative straight leg raises. Deep tendon reflexes plus 2 out of 4 bilaterally at the patella and Achilles. Patient has normal affect extension. Patient has normal sensation to light touch Extremity normal to inspection General Extremety ED: Negative for edema General Extremity: Negative for edema Neuro oriented x3, CN's II-XII intact bilaterally, no sensory deficits noted and gait normal Sensorium / Orientation: awake, alert, oriented to person, oriented to place and oriented to time Motor Exam: strength 5/5 throughout and strength abnormal Psych mental status grossly normal Skin no rashes or lesions noted and no wounds MDM MDM MDM Narrative Medical decision making narrative: Patient presents to the emergency department with multiple falls. Patient complaining of low back pain. Patient per daughter has been having passing out spells. Clinically patient nontoxic-appearing. He is a poor historian. IV line established. EKG obtained on arrival showed a sinus rhythm with rate of 73 bpm with occasional PACs. CBC with differential, 6.5 with hemoglobin 17 and platelets 329. Chemistries unremarkable. BUN 22 and creat 1.36. Urinalysis was normal. CT scan of the brain without contrast showed no acute disease process. Patient had a CT of the cervical spine that showed chronic degenerative changes. Patient had x-rays of the thoracic spine that showed no acute fractures. X-rays of the lumbar spine showed compression fractures of L2 and L3. Chest x-ray unremarkable. Patient was hypertensive and received labetalol 20 mg IV bolus. He was medicated with morphine and Zofran. Will discuss case with hospitalist to evaluate patient for admission. After I discussed results with patient he tells me that 5 or 6 months ago he spent time in a retirement due to compression fractures in his back therefore it is unclear if these are new or more severe. Lab Data Attestation: I reviewed the patient's lab results. Labs: Laboratory Results - last 24 hr 04/06/24 04/06/24 11:16 11:22 WBC 6.5 RBC 5.08 Hgb 17.0 H Hct 49.3 MCV 97.0 H MCH 33.5 H MCHC 34.5 RDW Std Deviation 46.7 H RDW Coeff of Aly 13.0 Plt Count 329 MPV 10.2 Immature Gran % (Auto) 0.500 Neut % (Auto) 66.3 Lymph % (Auto) 24.3 [place] % (Auto) 6.9 Eos % (Auto) 0.9 Baso % (Auto) 1.1 H Absolute Neuts (auto) 4.3 Absolute Lymphs (auto) 1.59 Nucleated RBC % 0 Sodium 138 Potassium 4.1 Chloride 104 Carbon Dioxide 31.0 Anion Gap 3 L BUN 22 H Creatinine 1.36 H Estim Creat Clear Calc 42.94 Est GFR (MDRD) Af Amer 66 Est GFR (MDRD) Non-Af 54 L BUN/Creatinine Ratio 16.2 Glucose 99 Calcium 10.0 Troponin I High Sens 9 Urine Color Yellow Urine Clarity Clear Urine pH 6.0 Ur Specific [place] 1.020 Urine Protein 30 H Urine Glucose (UA) Normal Urine Ketones Negative Urine Occult Blood Negative Urine Nitrite Negative Urine Bilirubin Negative Urine Urobilinogen Normal Ur Leukocyte Esterase 25 H Urine RBC 0 SEEN Urine WBC 0 SEEN Ur Squamous Epith Cells 5-10 SEEN Urine Bacteria 0 SEEN Urine Mucus 0 SEEN Radiography Diagnostic Testing: Clinical Impression(s) from Imaging Studies Brain CT 04/06/24 12:04 IMPRESSION: 1. No acute intracranial process. 2. Chronic involutional changes of the brain. 3. Old right thalamic lacunar infarct. Electronically Signed: Tomasz Lauren MD at 13:29 EDT , Lumbar Spine X-Ray 04/06/24 12:04 IMPRESSION: Moderate to severe compression fractures of L2 and L3 vertebrae of undetermined age and could be chronic. Electronically Signed: Tomasz Lauren MD at 14:33 EDT , Thoracic Spine X-Ray 04/06/24 12:04 IMPRESSION: No evidence of thoracic spinal fracture or spondylolisthesis. Electronically Signed: Tomasz Lauren MD at 14:30 EDT , Cervical Spine CT 04/06/24 12:08 IMPRESSION: 1. No evidence of acute cervical spinal fracture or spondylolisthesis. 2. Degenerative changes. Electronically Signed: Tomasz Lauren MD at 14:08 EDT , Chest X-Ray 04/06/24 12:55 IMPRESSION: No radiographic evidence of acute cardiopulmonary disease. Electronically Signed: Tomasz Lauren MD at 14:31 EDT , Discharge Plan Dx/Rx/DC Orders Clinical Impression: Falls, Hypertension, Compression fx, lumbar spine, Syncope Disposition Disposition: Acute Care [facility]
--- NOTE | 2024-04-06 12:08 | CT_ITS ---
INDICATION: fall EXAMINATION: CT CERVICAL SPINE - CT Spine Cervical W/O Contrast Injection TECHNIQUE: Helically acquired images were obtained of the cervical spine. 2D reformatted images were reviewed. The protocol utilizes one or more of the following dose reduction techniques: automated exposure control, adjustment of mA and/or kV according to patient size,and/or use of iterative reconstruction technique. IV Contrast dosage and agent: None. RADIATION DOSAGE (If Supplied By Facility): CTDIvol = ( 15.19 ) mGy, DLP = ( 306.27 ) mGycm COMPARISON: No relevant prior comparison study available FINDINGS: VERTEBRAE: No fracture or traumatic subluxation. No discrete lytic or blastic abnormality. Exaggerated cervical lordosis. The alignment of the vertebral bodies unremarkable. Normal craniocervical junction and cervicothoracic junction. DISCS and SPINAL CANAL: Narrowing of C5-C6 and C6-7 disc spaces. Endplate spondylosis. Posterior lateral degenerative spurs on the right side these levels with narrowing of the right neural foramina. No critical central spinal canal stenosis. NECK SOFT TISSUES: No prevertebral soft tissue swelling. Atherosclerotic calcifications of the carotid arteries bilaterally. LUNG APICES: Clear. CT/Spine Cervical without Contras IMPRESSION: 1. No evidence of acute cervical spinal fracture or spondylolisthesis. 2. Degenerative changes. Electronically Signed: Tomasz Lauren MD at 14:08 EDT ,
[2024-04-06] MEDS: 0.9% Normal Saline (1000mL) 1,000 ML 1000 ML IV (12:10)
[2024-04-06 12:11] LABS: Bacteria 0 SEEN /hpf (None Seen); Mucous, Urine 0 SEEN /hpf (<or=2+); Red Blood Cells-Urine 0 SEEN /hpf (0-5); White Blood Cells 0 SEEN /hpf (0-5)
[2024-04-06 12:13] LABS: Absolute Lymphocyte Count 1.59 X10^3/uL (0.83-4.51); Absolute Neutrophil Count 4.3 X10^3/uL (2.0-7.7); Basophil# 0.07 X10^3/uL; Basophil% 1.1 % (0-1); Eosinophil# 0.06 X10^3/uL; Eosinophils% 0.9 % (0-5); Hematocrit 49.3 % (40-54); Lymphocyte # 1.59 X10^3/ul (0.83-4.51); Lymphocyte % 24.3 % (19-41); Mean Corp Hgb Conc 34.5 g/dL (32-36); Mean Corpuscular Hgb 33.5 pg (27.0-32.0); Mean Platelet Vol. 10.2 fl (6.2-12.0); Monocyte# 0.45 X10^3/uL; Monocyte% 6.9 % (0-10); NRBC Flagged by Analyzer 0 % (0-5); Neutrophil # 4.34 X10^3/uL (2.7-7.7); Neutrophil % 66.3 % (47-70); Platelet Count 329 K/mm3 (150-450); RBC Distribution Width SD 46.7 fl (35.1-43.9); Red Blood Count 5.08 M/mm3 (4.6-6.2); White Blood Count 6.5 K/mm3 (4.4-11.0)
[2024-04-06 12:14] LABS: Color, Urine Yellow (Yellow); Glucose, Dipstick Normal (Normal); Ketone-Dipstick Negative (Negative); Leukocyte Esterase-Dipstick 25 /ul (Negative); Nitrite-Dipstick Negative (Negative); Occult Blood-Urine Negative /ul (Negative); Protein-Dipstick 30 mg/dl (Negative); Urine Bilirubin Dipstick Negative (Negative); Urine Clarity Clear (Clear); Urine Urobilinogen Normal (Normal)
[2024-04-06 12:29] LABS: Anion Gap 3 (5-15); BUN 22 mg/dL (7-18); BUN/Creat Ratio 16.2 RATIO (10-20); Chloride 104 mmol/L (98-107); Creatinine, Serum 1.36 mg/dL (0.70-1.30); EST Glomerular Filtration Rate 54 mL/min (>60); Est Glom Filt Rate - Afr Amer 66 mL/min (>60); Estimated Creatinine Clearance 42.94 ml/min; Glucose 99 mg/dL (74-106); Potassium 4.1 mmol/L (3.5-5.1); Sodium Level 138 mmol/L (136-145); Troponin-I HS 9 pg/mL (3.0-78.0)
[2024-04-06 12:31] LABS: Squamous Epithelial Cells - UA 5-10 SEEN /hpf (0-5)
--- NOTE | 2024-04-06 12:55 | RAD_ITS ---
INDICATION: fall EXAMINATION/TECHNIQUE: X-RAY - XR Chest 1 View COMPARISON: No relevant prior comparison study available FINDINGS: LINES/DEVICES: None. LUNGS: No consolidation, edema or effusion. No pneumothorax. MEDIASTINUM AND CARDIOVASCULAR STRUCTURES: Cardiac silhouette not enlarged. Central airways and mediastinal contour are unremarkable. BONES AND SOFT TISSUES: No demonstrated acute osseous changes. RAD/Chest 1 View (Portable) IMPRESSION: No radiographic evidence of acute cardiopulmonary disease. Electronically Signed: Tomasz Lauren MD at 14:31 EDT ,
[2024-04-06] MEDS: Labetalol (Prefilled) 20 MG/4 ML Vial IV (13:23)
[2024-04-06] MEDS: Morphine 4 MG/ML Syringe IV (15:28)
[2024-04-06] MEDS: Ondansetron 4 MG/2 ML Vial IV (15:28)
--- NOTE | 2024-04-06 15:45 | HP.PCM.HOS_ITS ---
HPI - General General Date of Admission: 04/06/24 Date of Service: 04/06/24 Chief Complaint: Recurrent fall 3 times. Today passed out. BP high. HPI Narrative PEDRO PABLO SIERRA, is a 73 M came to ER after he passed out today after a fall. Patient had 3 falls in last 1 week but did not recently had passing out. He might have passed out 2-3 times in whole life. He stated he loses balance most likely from the back pain and fell on the lateral side. He had lumbar vertebral fracture after a fall about 4 months ago and was in rehab and since then he has pain, complaint of 03/28 which has not gotten better. Its mostly related with pain on movement. Patient lives in his mobile home/trailer In ED, his BP was found high. BP was 201/91 now 165/69 after labetalol. Twelve-lead EKG normal sinus rhythm with multiple PVCs at rate 73 bpm. Patient denies dizziness, diaphoresis or vertigo. He thinks his passing out might have been short but it was unwitnessed. Patient also gets chest pain on coughing, chronic problem with the left side. He is a chronic smoker smokes more than a pack per day since age of 14 [facility] Medical History Closed fracture of right inferior pubic ramus Acute UTI COPD (chronic obstructive pulmonary disease) UTI (urinary tract infection) Depression Diabetes Kidney stones Chronic pain Pancreatitis On home oxygen therapy Irregular heart beat Atrial fibrillation Stroke/cerebrovascular accident Smoker Falls frequently Seizures Sleep apnea COPD (chronic obstructive pulmonary disease) Asthma High cholesterol Tobacco abuse Home Medications ?Medication ?Instructions ?Recorded ?Last Taken ?Type tamsulosin 0.4 mg capsule 0.4 mg PO QHS bph 01/26/14 03/28/23 History finasteride 5 mg tablet 5 mg PO DAILY prostate 11/14/14 03/28/23 History atorvastatin 40 mg tablet 40 mg PO QHS Cholesterol 09/23/15 03/28/23 History mirtazapine 15 mg tablet 15 mg PO QHS anti depressant 08/16/19 03/28/23 History clopidogrel 75 mg tablet 75 mg PO DAILY blood thinner 10/25/19 03/28/23 History losartan 100 mg tablet 100 mg PO DAILY Blood pressure 08/19/21 03/28/23 History pantoprazole 40 mg tablet,delayed 40 mg PO DAILY GERD 08/19/21 03/28/23 History release nifedipine 90 mg tablet,extended 90 mg PO DAILY blood pressure 11/25/21 03/28/23 History release alendronate 70 mg tablet 70 mg PO QWEEK #1 TAB 11/30/21 03/28/23 Rx metoprolol tartrate 25 mg tablet 25 mg PO DAILY Blood pressure 03/30/23 03/28/23 History sennosides 8.6 mg-docusate sodium 2 tab PO BID PRN PRN Constipation 04/04/23 Unknown Rx 50 mg tablet (Stool #0 tabs Softener-Stimulant Laxative) acetaminophen 500 mg tablet 1,000 mg (2 x 500 mg) PO Q8 30 07/26/23 Unknown Rx days #0 tabs oxycodone 5 mg tablet 5 - 10 mg (1 - 2 x 5 mg) PO Q4H 08/02/23 Unknown Rx PRN PRN Pain Score 6-10 2 days #10 tabs albuterol sulfate 90 mcg/actuation 1 puff inhalation Q8H 08/22/23 Unknown History aerosol inhaler aluminum-magnesium hydroxide 225 30 ml PO Q4H PRN 08/22/23 Unknown History mg-200 mg/5 mL oral suspension carbamazepine 200 mg 200 mg PO Q12H 08/22/23 Unknown History tablet,extended release,12 hr cholecalciferol (vitamin D3) 50 50 mcg PO DAILY 08/22/23 Unknown History mcg (2,000 unit) tablet clonidine HCl 0.1 mg tablet 0.1 mg PO BID 08/22/23 Unknown History guaifenesin 100 mg/5 mL oral liquid 200 mg PO Q4H PRN 08/22/23 Unknown History guaifenesin 400 mg tablet 400 mg PO BID PRN 08/22/23 Unknown History sertraline 100 mg tablet 100 mg PO DAILY 08/22/23 Unknown History Allergy/AdvReac Type Severity Reaction Status Date / Time No Known Allergies Allergy Verified 04/06/24 11:12 Family History Other Heart disease Surgical History S/P arterial stent History of appendectomy Social History household members: none Smoking Status: Current some day smoker tobacco type: cigarettes how long ago did patient quit smoking: Has not smoked in 7 weeks alcohol intake: former details: Former alcoholic quit several years ago substance use type: does not use caffeine: Yes Type: coffee Number of servings: 3 ROS ROS Narrative Constitutional: Reports fatigue and weakness. No fever. HEENT: Reports systems reviewed and no addt'l complaints, except as documented Respiratory/Chest: Chronic smoker. No acute shortness of breath or respiratory distress or wheezing. CVS: Chest pain most likely pleuritic as described in HPI Gastrointestinal: Denies coffee ground emesis, hematemesis or vomiting Genitourinary: Denies burning urination or new urinary tract symptoms Musculoskeletal: Chronic back pain. Poor balance. Denies acute joint pain or limited range of motion. Neurologic: Denies seizure-like symptoms. skin: No ulcer. No rash Endocrinology: Reports systems reviewed and no addt'l complaints, except as documented Hematologic/Lymphatic: Reports systems reviewed and no addt'l complaints, except as documented Rest 14 ROS are negative except as mentioned in HPI Vital Signs Vital Signs Vital Signs: 04/06/24 11:08 04/06/24 11:24 04/06/24 11:46 Temperature 98 F Temperature Source Oral Pulse Rate 85 Respiratory Rate 16 Respiratory Effort Normal Non-Labored Respiratory Depth Normal Respiratory Pattern Normal Blood Pressure 196/147 H 201/91 H Blood Pressure Mean 163 127 Pulse Ox 96 96 Oxygen Delivery Method Room Air Room Air 04/06/24 13:00 04/06/24 13:22 04/06/24 13:27 Temperature Temperature Source Pulse Rate 72 68 Respiratory Rate Respiratory Effort Respiratory Depth Respiratory Pattern Blood Pressure 194/158 H 197/84 H 191/80 H Blood Pressure Mean 165 121 117 Pulse Ox Oxygen Delivery Method 04/06/24 14:45 Temperature Temperature Source Pulse Rate Respiratory Rate Respiratory Effort Respiratory Depth Respiratory Pattern Blood Pressure 177/139 H Blood Pressure Mean 152 Pulse Ox Oxygen Delivery Method Weight Weight: 140 lb 6.951 oz Body Mass Index (BMI) 22.6 Physical Exam Narrative General: Alert, Oriented x3, Cooperative HEENT: Atraumatic, PERRLA, EOMI, Normocephalic Oral: Oral mucosa dry no Gingival or Mucosal Lesions/ Ulcerations Neck: Supple, No JVD, Negative Carotid Bruits Chest wall/Lungs: Air entry diminished in bilateral lung bases. No crepitation/rhonchi Cardiovascular: Regular rate, Regular Rhythm, Normal S1, Normal S2, No M/G/R Abdomen: Bowel Sounds Present, Soft, Non Tender, Non-Distended : No dysuria. No renal angle tenderness. No suprapubic tenderness. Extremities: No edema, Capillary Refill Less than 3 Seconds Skin: No rashes, No breakdown Musculoskeletal: No Tenderness to Palpation of Joints or Extremities. Gait instability ROM intact in hips and joints. Spine: Tenderness present at the lumbar spine. Cannot sit up for long time. ROM at lumbar spine understated Neurological: Cranial nerves II-XII grossly intact, DTR 2+/4. No acute focal neurological deficit. Psych/Mental Status: Normal Affect, Appropriate. Results Lab / Micro Data 04/06/24 11:22 04/06/24 11:22 Labs: Laboratory Results - last 24 hr 04/06/24 11:16: Urine Color Yellow, Urine Clarity Clear, Urine pH 6.0, Ur Specific [place] 1.020, Urine Protein 30 H, Urine Glucose (UA) Normal, Urine Ketones Negative, Urine Occult Blood Negative, Urine Nitrite Negative, Urine Bilirubin Negative, Urine Urobilinogen Normal, Ur Leukocyte Esterase 25 H, Urine RBC 0 SEEN, Urine WBC 0 SEEN, Ur Squamous Epith Cells 5-10 SEEN, Urine Bacteria 0 SEEN, Urine Mucus 0 SEEN 04/06/24 11:22: WBC 6.5, RBC 5.08, Hgb 17.0 H, Hct 49.3, MCV 97.0 H, MCH 33.5 H, MCHC 34.5, RDW Std Deviation 46.7 H, RDW Coeff of Aly 13.0, Plt Count 329, MPV 10.2, Immature Gran % (Auto) 0.500, Neut % (Auto) 66.3, Lymph % (Auto) 24.3, [place] % (Auto) 6.9, Eos % (Auto) 0.9, Baso % (Auto) 1.1 H, Absolute Neuts (auto) 4.3, Absolute Lymphs (auto) 1.59, Nucleated RBC % 0, Sodium 138, Potassium 4.1, Chloride 104, Carbon Dioxide 31.0, Anion Gap 3 L, BUN 22 H, Creatinine 1.36 H, Estim Creat Clear Calc 42.94, Est GFR (MDRD) Af Amer 66, Est GFR (MDRD) Non-Af 54 L, BUN/Creatinine Ratio 16.2, Glucose 99, Calcium 10.0, Troponin I High Sens 9 Imaging Radiology Impression Brain CT 04/06/24 12:04 IMPRESSION: 1. No acute intracranial process. 2. Chronic involutional changes of the brain. 3. Old right thalamic lacunar infarct. Electronically Signed: Tomasz Lauren MD at 13:29 EDT , Lumbar Spine X-Ray 04/06/24 12:04 IMPRESSION: Moderate to severe compression fractures of L2 and L3 vertebrae of undetermined age and could be chronic. Electronically Signed: Tomasz Lauren MD at 14:33 EDT Reading Location ID and State: [facility] / [place] Tel , Service support , Thoracic Spine X-Ray 04/06/24 12:04 IMPRESSION: No evidence of thoracic spinal fracture or spondylolisthesis. Electronically Signed: Tomasz Lauren MD at 14:30 EDT Reading Location ID and State: [facility] / [place] Tel , Service support , Cervical Spine CT 04/06/24 12:08 IMPRESSION: 1. No evidence of acute cervical spinal fracture or spondylolisthesis. 2. Degenerative changes. Electronically Signed: Tomasz Lauren MD at 14:08 EDT , Chest X-Ray 04/06/24 12:55 IMPRESSION: No radiographic evidence of acute cardiopulmonary disease. Electronically Signed: Tomasz Lauren MD at 14:31 EDT Reading Location ID and State: [facility] / [place] Tel , Service support , Assessment & Plan Assessment/Plan (1) Syncope: (2) Falls: (3) Hypertension: PLAN: Plan This 73 gentleman being admitted for acute on recurrent fall with syncope. BP was also high in systolic 200s 1. Syncope, unwitnessed exact etiology unclear possible vasovagal after fall: Patient is being admitted in PCU. Cardiac monitoring. First troponin is normal. Repeat second troponin. Twelve-lead EKG nondiagnostic. Orthostatic blood pressure tomorrow AM. Repeat echo. 2. Acute on recurrent fall: Most likely due to lumbar fracture L2-L3 about 4 months ago. PT and OT ordered. No sciatica or neurological compression signs. Pain control. 3. Hypertensive urgency: BP in systolic 200. Labetalol 20 mg IV was given in ED. Labetalol 20 mg IV for SBP more than 180 mmHg ordered. 4. Chronic active smoker with COPD and chronic cough: Patient denies any change in pattern of cough or sputum production or shortness of breath. Does not seem in exacerbation. Has chronic left-sided chest pain due to cough. Pleuritic in nature. 5. Paroxysmal A-fib: Patient not on anticoagulant. Twelve-lead EKG currently shows sinus rhythm. Probably discontinued due to GI bleed. Not on any rate control medication. 6. Osteoporosis and degenerative arthritis, chronic L2-L3 lumbar fracture: As mentioned above. PT and OT ordered DVT prophylaxis: Lovenox 40 Mg subcu daily. Discontinue if platelet count drops less than 50,000 or hemoglobin less than 8 g% Living will/advanced directive/end of life care: Patient does not have living will or advanced directive. His daughter is power of international sales representative for health after discussion of benefits/risks procedures involved with full code, DNR CC arrest and DNR CC, the patient opted for full code. Patient does want artificial life support including intubation, tube feed, ventilator and/chest compression, central venous catheter, vasopressor and DC shock if needed Total time spent in [id number] encounter in discussion of advanced directive 17 minutes. Laboratory Results 04/06/24 11:16: Urine Color Yellow, Urine Clarity Clear, Urine pH 6.0, Ur Specific [place] 1.020, Urine Protein 30 H, Urine Glucose (UA) Normal, Urine Ketones Negative, Urine Occult Blood Negative, Urine Nitrite Negative, Urine Bilirubin Negative, Urine Urobilinogen Normal, Ur Leukocyte Esterase 25 H, Urine RBC 0 SEEN, Urine WBC 0 SEEN, Ur Squamous Epith Cells 5-10 SEEN, Urine Bacteria 0 SEEN, Urine Mucus 0 SEEN 04/06/24 11:22: WBC 6.5, RBC 5.08, Hgb 17.0 H, Hct 49.3, MCV 97.0 H, MCH 33.5 H, MCHC 34.5, RDW Std Deviation 46.7 H, RDW Coeff of Aly 13.0, Plt Count 329, MPV 10.2, Immature Gran % (Auto) 0.500, Neut % (Auto) 66.3, Lymph % (Auto) 24.3, [place] % (Auto) 6.9, Eos % (Auto) 0.9, Baso % (Auto) 1.1 H, Absolute Neuts (auto) 4.3, Absolute Lymphs (auto) 1.59, Nucleated RBC % 0, Sodium 138, Potassium 4.1, Chloride 104, Carbon Dioxide 31.0, Anion Gap 3 L, BUN 22 H, Creatinine 1.36 H, Estim Creat Clear Calc 42.94, Est GFR (MDRD) Af Amer 66, Est GFR (MDRD) Non-Af 54 L, BUN/Creatinine Ratio 16.2, Glucose 99, Calcium 10.0, Magnesium 2.3, Troponin I High Sens 9 Clinical Impression(s) from Imaging Studies Brain CT 04/06/24 12:04 IMPRESSION: 1. No acute intracranial process. 2. Chronic involutional changes of the brain. 3. Old right thalamic lacunar infarct. Lumbar Spine X-Ray 04/06/24 12:04 IMPRESSION: Moderate to severe compression fractures of L2 and L3 vertebrae of undetermined age and could be chronic. Thoracic Spine X-Ray 04/06/24 12:04 IMPRESSION: No evidence of thoracic spinal fracture or spondylolisthesis. Electronically Signed: Tomasz Lauren MD at 14:30 EDT , Cervical Spine CT 04/06/24 12:08 IMPRESSION: 1. No evidence of acute cervical spinal fracture or spondylolisthesis. 2. Degenerative changes. Electronically Signed: Tomasz Lauren MD at 14:08 EDT , Chest X-Ray 04/06/24 12:55 IMPRESSION: No radiographic evidence of acute cardiopulmonary disease. Electronically Signed: Tomasz Lauren MD at 14:31 EDT , Charges/Coding Visit Charges Inpatient E&M: 63838 Init Hosp L3 Procedures Hospitalists Procedures: 54106 Advncd Care Plan 30 Min
[2024-04-06 16:22] LABS: Magnesium 2.3 mg/dL (1.6-2.6)
--- NOTE | 2024-04-06 18:02 | ECHOD_ITS ---
Version 2 Reason For Study: SYNCOPE Procedure This was a 2D Doppler, Color Flow transthoracic echocardiogram. PT refused to lay in left lateral position and was uncooperative. The study was technically difficult. Exam performed portable in patient room. Left Ventricle Normal LV size. Mild concentric left ventricular hypertrophy. The left ventricular ejection fraction is 50 %. Unable to assess diastolic function based on available data. Right Ventricle Normal right ventricle. Atria The left and right atria are normal. Mitral Valve Trivial mitral valve insufficiency. Tricuspid Valve Trivial tricuspid valve insufficiency. Unable to estimate RV systolic pressure due to insufficient tricuspid regurgitant envelope. Aortic Valve Trileaflet aortic valve with mildly thickened leaflets. Leaflet excursion appears mildly restricted. Pulmonic Valve The pulmonic valve is not well visualized. Great Vessels The aortic root is not well visualized. Pericardium/Pleural Trivial pericardial effusion. Epicardial fat. MMode/2D Measurements & Calculations LVIDd: 3.9 cm IVSd: 1.4 cm LA dimension: 3.7 cm LVIDs: 3.0 cm LVPWd: 1.1 cm FS: 23.0 % TAPSE: 1.3 cm Time Measurements MV dec time: 0.29 sec Doppler Measurements & Calculations MV E max doron: 59.7 cm/sec Lat Peak E' Doron: 5.0 cm/sec Med Peak E' Doron: 8.7 cm/sec MV A max doron: 54.4 cm/sec E/E' lat: 12.0 E/E' med: 6.9 MV E/A: 1.1 MV V2 max: 75.0 cm/sec MV P1/2t max doron: 75.8 cm/sec PA V2 max: 50.7 cm/sec MV max P.2 mmHg MV P1/2t: 99.4 msec MV V2 mean: 31.1 cm/sec MV mean P.50 mmHg MV dec slope: 223.2 cm/sec2 MV V2 VTI: 30.5 cm MVA(P1/2t): 2.2 cm2 ECHO/Echo Complete Interpretation Summary Technically difficult study with suboptimal images Mild concentric left ventricular hypertrophy. The left ventricular ejection fraction is 50 %. Trileaflet aortic valve with mildly thickened leaflets. Leaflet excursion appea rs mildly restricted. Patient markedly bradycardic during the study. Ordering Physician: Brody Maynard Performed By: Rj King RCS
[2024-04-06] MEDS: Lactated Ringers 1,000 ML 75 ML IV (18:33)
[2024-04-06] MEDS: cloNIDine HCl 0.2 MG Tablet PO (18:33)
[2024-04-06] MEDS: amLODIPine 10 MG Tablet PO (18:33)
[2024-04-06] MEDS: Pantoprazole Sodium 40 MG Tablet PO (18:34)
[2024-04-06] MEDS: Enoxaparin 40 MG/0.4 ML Syringe SC (18:34)
[2024-04-06 19:53] LABS: Troponin-I HS 18 pg/mL (3.0-78.0)
[2024-04-06] MEDS: Atorvastatin Calcium 40 MG Tablet PO (22:19)
[2024-04-06] MEDS: Acetaminophen 500 MG Tablet 1000 MG PO (22:19)
[2024-04-06] MEDS: guaiFENesin/D-Methorphan TAB.SR.12H 2 TABLET PO (22:19)
[2024-04-07] VITALS (7 sets, daily range): BP systolic 132–176; BP diastolic 58–74; PULSE 59–95; RESP 16–18; TEMP 36.4–36.7; O2SAT 93–96
[2024-04-07] MEDS: carBAMazepine 200 MG Tablet PO ×3 (02:20→22:30)
[2024-04-07 05:01] LABS: Absolute Lymphocyte Count 1.44 X10^3/uL (0.83-4.51); Absolute Neutrophil Count 3.8 X10^3/uL (2.0-7.7); Basophil# 0.09 X10^3/uL; Basophil% 1.5 % (0-1); Eosinophil# 0.09 X10^3/uL; Eosinophils% 1.5 % (0-5); Hematocrit 42.4 % (40-54); Hemoglobin 14.2 g/dL (13.0-16.5); Lymphocyte # 1.44 X10^3/ul (0.83-4.51); Lymphocyte % 24.4 % (19-41); Mean Corp Hgb Conc 33.5 g/dL (32-36); Mean Corpuscular Hgb 32.8 pg (27.0-32.0); Mean Corpuscular Volume 97.9 fL (80-94); Mean Platelet Vol. 9.8 fl (6.2-12.0); Monocyte# 0.46 X10^3/uL; Monocyte% 7.8 % (0-10); NRBC Flagged by Analyzer 0 % (0-5); Neutrophil # 3.81 X10^3/uL (2.7-7.7); Neutrophil % 64.5 % (47-70); Platelet Count 292 K/mm3 (150-450); RBC Distribution Width CV 12.8 % (11.6-14.6); RBC Distribution Width SD 46.1 fl (35.1-43.9); Red Blood Count 4.33 M/mm3 (4.6-6.2); White Blood Count 5.9 K/mm3 (4.4-11.0)
[2024-04-07 05:48] LABS: Anion Gap 4 (5-15); BUN 17 mg/dL (7-18); BUN/Creat Ratio 16.2 RATIO (10-20); Calcium,Total 9.1 mg/dL (8.5-10.1); Chloride 106 mmol/L (98-107); Creatinine, Serum 1.05 mg/dL (0.70-1.30); EST Glomerular Filtration Rate 73 mL/min (>60); Est Glom Filt Rate - Afr Amer 89 mL/min (>60); Glucose 95 mg/dL (74-106); Potassium 3.6 mmol/L (3.5-5.1); Sodium Level 135 mmol/L (136-145)
[2024-04-07] MEDS: Acetaminophen 500 MG Tablet 1000 MG PO ×3 (06:07→22:28)
[2024-04-07] MEDS: Cholecalciferol (VIT D3) 25 MCG TABLET (1,000 UNITS) 50 MCG PO (10:18)
[2024-04-07] MEDS: guaiFENesin/D-Methorphan TAB.SR.12H 2 TABLET PO ×2 (10:18→22:28)
[2024-04-07] MEDS: cloNIDine HCl 0.2 MG Tablet PO ×2 (10:19→22:28)
[2024-04-07] MEDS: Clopidogrel Bisulfate 75 MG Tablet PO (10:19)
[2024-04-07] MEDS: amLODIPine 10 MG Tablet PO (10:19)
[2024-04-07] MEDS: Pantoprazole Sodium 40 MG Tablet PO (10:19)
--- NOTE | 2024-04-07 14:25 | PN_ITS ---
Subjective Subjective Patient seen and examined. He complained of not feeling very well. He was admitted with a complaint of syncope and mechanical falls. He was found to be hypotensive urgency with blood pressure of 201/91 at time he came in. States he feels quite weak and tired. He denies any chest pain, patient's, dizziness, nausea vomiting or any other symptoms. Review of symptoms otherwise negative. Objective Data Objective Data Vital Signs: Vital Signs Temp Pulse Resp BP Pulse Ox O2 Del Method 97.6 F L 62 18 137/66 H 95 Room Air 04/07/24 09:55 04/07/24 11:49 04/07/24 09:55 04/07/24 11:49 04/07/24 09:55 04/07/24 13:38 Oxygen Delivery Method Room Air Weight: 143 lb 4.807 oz Body Mass Index (BMI) 23.1 Intake & Output: Intake and Output for Last 24 Hours 04/05/24 04/06/24 04/07/24 23:59 23:59 23:59 Intake Total 1000 / 1150 1150 / 1150 Output Total 100 / 100 Balance 1000 / 1050 1050 / 1050 Lab / Micro Data 04/07/24 04:25 04/07/24 04:25 Labs: Laboratory Results - last 24 hr 04/06/24 11:22: Magnesium 2.3 04/06/24 19:00: Troponin I High Sens 18 04/07/24 04:25: WBC 5.9, RBC 4.33 L, Hgb 14.2, Hct 42.4, MCV 97.9 H, MCH 32.8 H, MCHC 33.5, RDW Std Deviation 46.1 H, RDW Coeff of Aly 12.8, Plt Count 292, MPV 9.8, Immature Gran % (Auto) 0.300, Neut % (Auto) 64.5, Lymph % (Auto) 24.4, [place] % (Auto) 7.8, Eos % (Auto) 1.5, Baso % (Auto) 1.5 H, Absolute Neuts (auto) 3.8, Absolute Lymphs (auto) 1.44, Nucleated RBC % 0, Sodium 135 L, Potassium 3.6, Chloride 106, Carbon Dioxide 25.0, Anion Gap 4 L, BUN 17, Creatinine 1.05, Estim Creat Clear Calc 55.70, Est GFR (MDRD) Af Amer 89, Est GFR (MDRD) Non-Af 73, BUN/Creatinine Ratio 16.2, Glucose 95, Calcium 9.1, TSH 1.730 Radiography Diagnostic Testing: Radiology Impression Lumbar Spine X-Ray 04/06/24 12:04 IMPRESSION: Moderate to severe compression fractures of L2 and L3 vertebrae of undetermined age and could be chronic. Electronically Signed: Tomasz Lauren MD at 14:33 EDT , Thoracic Spine X-Ray 04/06/24 12:04 IMPRESSION: No evidence of thoracic spinal fracture or spondylolisthesis. Electronically Signed: Tomasz Lauren MD at 14:30 EDT , Chest X-Ray 04/06/24 12:55 IMPRESSION: No radiographic evidence of acute cardiopulmonary disease. Electronically Signed: Tomasz Lauren MD at 14:31 EDT , Physical Exam Const alert and oriented x3 Constitutional Narrative: frail, weak General Appearance: cooperative HEENT normocephalic, head/scalp atraumatic and moist oral mucous membranes Eyes PERRL and EOMs intact bilaterally Neck no lymphadenopathy and supple Lymph Lymphatic: no lymphadenopathy noted and no lymphedema noted Resp normal respiratory effort, normal air movement and clear to auscultation bilaterally Cardio regular rate, regular rhythm, S1 normal heart sound, S2 normal heart sound and no murmurs GI normal to inspection, nondistended, normoactive bowel sounds, soft to palpation, non-tender and non-distended Extremity normal capillary refill, no clubbing, cyanosis or edema and no calf tenderness Skin General Skin Exam: no breakdown Neuro CN's II-XII intact bilaterally, no focal motor deficits, no sensory deficits noted and deep tendon reflexes 2+ bilaterally Motor Exam: strength 5/5 throughout and general weakness Psych thought process normal and cooperative Appearance: appropriate Mood & Affect: flat affect Assessment & Plan Assessment/Plan (1) Compression fx, lumbar spine: (2) Syncope: (3) Falls: PLAN: Plan #Syncope * Patient had an unwitnessed syncope at home. Etiology is unclear. Troponins were negative. * Orthostatics also negative. Hydrate gently with IV fluids. 2D echo ordered. * May benefit from 30-day event monitor at discharge * Fall precautions #Debility due to recurrent falls. * Has an L2-L3 lumbar fracture which is likely chronic * PT OT on board. Fall precautions. * Pain meds for pain control #Hypertensive urgency * Blood pressure was markedly elevated in the 200s systolic in the ED. * Was given IV labetalol. * On p.o. amlodipine and p.o. clonidine as well as p.o. metoprolol, p.o. losartan and nifedipine * IV hydralazine prn * #COPD: * Not in exacerbation. * Breathing treatments with bronchodilators.. * Does have a chronic cough. #Paroxysmal A-fib: * Not on anticoagulants and was likely discontinued due to GI bleed. * Also not on any antiarrhythmic or rate controlling medications. * Will monitor. EKG showed normal sinus rhythm on admission. * #History of osteoporosis and degenerative arthritis: PT OT on board. Fall precautions. On Fosamax weekly #DVT prophylaxis: Lovenox Charges/Coding Visit Charges Inpatient E&M: 82726 Subs Hosp L2
[2024-04-07] MEDS: Budesonide Respules 0.5 MG/2 ML AMPUL.NEB. INHALATION (19:09)
[2024-04-07] MEDS: Albuterol 2.5 MG/3 ML VIAL.NEB. INHALATION (19:09)
[2024-04-07] MEDS: Atorvastatin Calcium 40 MG Tablet PO (22:29)
[2024-04-07] MEDS: Tamsulosin HCl 0.4 MG Capsule PO (22:34)
[2024-04-07] MEDS: Mirtazapine 15 MG Tablet PO (22:34)
[2024-04-08] VITALS (8 sets, daily range): BP systolic 122–152; BP diastolic 62–76; PULSE 42–63; RESP 14–18; TEMP 36.3–36.8; O2SAT 87–96
[2024-04-08] MEDS: Acetaminophen 500 MG Tablet 1000 MG PO ×2 (06:14→22:26)
[2024-04-08 06:58] LABS: Absolute Neutrophil Count 4.1 X10^3/uL (2.0-7.7); Basophil# 0.08 X10^3/uL; Basophil% 1.3 % (0-1); Eosinophil# 0.12 X10^3/uL; Hemoglobin 14.6 g/dL (13.0-16.5); Mean Corp Hgb Conc 33.2 g/dL (32-36); Mean Corpuscular Hgb 32.7 pg (27.0-32.0); Mean Corpuscular Volume 98.4 fL (80-94); Mean Platelet Vol. 9.9 fl (6.2-12.0); Monocyte# 0.52 X10^3/uL; Monocyte% 8.7 % (0-10); NRBC Flagged by Analyzer 0 % (0-5); Neutrophil # 4.06 X10^3/uL (2.7-7.7); Neutrophil % 67.7 % (47-70); Platelet Count 270 K/mm3 (150-450); Red Blood Count 4.47 M/mm3 (4.6-6.2)
[2024-04-08 07:45] LABS: Anion Gap 9 (5-15); BUN 12 mg/dL (7-18); BUN/Creat Ratio 10.4 RATIO (10-20); Calcium,Total 9.6 mg/dL (8.5-10.1); Chloride 108 mmol/L (98-107); Creatinine, Serum 1.15 mg/dL (0.70-1.30); EST Glomerular Filtration Rate 66 mL/min (>60); Est Glom Filt Rate - Afr Amer 80 mL/min (>60); Estimated Creatinine Clearance 50.86 ml/min; Glucose 92 mg/dL (74-106); Potassium 3.9 mmol/L (3.5-5.1); Sodium Level 142 mmol/L (136-145)
[2024-04-08] MEDS: Enoxaparin 40 MG/0.4 ML Syringe SC (08:53)
[2024-04-08] MEDS: Losartan Potassium 100 MG Tablet PO (08:53)
[2024-04-08] MEDS: carBAMazepine 200 MG Tablet PO ×2 (08:54→22:26)
[2024-04-08] MEDS: NIFEdipine 90 MG Tablet PO (08:54)
[2024-04-08] MEDS: Pantoprazole Sodium 40 MG Tablet PO (08:54)
[2024-04-08] MEDS: Metoprolol Tartrate 25 MG Tablet PO (08:54)
[2024-04-08] MEDS: Clopidogrel Bisulfate 75 MG Tablet PO (08:55)
[2024-04-08] MEDS: Finasteride 5 MG Tablet PO (08:55)
[2024-04-08] MEDS: Cholecalciferol (VIT D3) 25 MCG TABLET (1,000 UNITS) 50 MCG PO (08:55)
[2024-04-08] MEDS: guaiFENesin/D-Methorphan TAB.SR.12H 2 TABLET PO ×2 (09:53→22:24)
[2024-04-08] MEDS: Sertraline 100 MG Tablet PO (09:53)
[2024-04-08] MEDS: cloNIDine HCl 0.2 MG Tablet PO (09:53)
--- NOTE | 2024-04-08 11:20 | PN.HOSP_ITS ---
Reason for Visit Reason for Visit: Diagnoses Essential (primary) hypertension (04/07/24) Repeated falls (04/07/24) Syncope and collapse (04/07/24) Wedge compression fracture of unspecified lumbar vertebra, initial encounter for closed fracture (04/07/24) Subjective Subjective Recalls falling, no LOC. Complains of back pain. Has fallen around 9 times recently. Objective Data Objective Data Vital Signs: Vital Signs Temp Pulse Resp BP Pulse Ox O2 Del Method 36.8 C 60 14 152/76 H 94 Room Air 04/08/24 08:40 04/08/24 08:54 04/08/24 08:40 04/08/24 08:54 04/08/24 08:40 04/08/24 10:00 Oxygen Delivery Method Room Air Weight: 65 kg Body Mass Index (BMI) 23.1 Intake & Output: Intake and Output for Last 24 Hours 04/06/24 04/07/24 04/08/24 23:59 23:59 23:59 Intake Total 1000 / 1150 1150 / 1150 Output Total 100 / 100 Balance 1000 / 1050 1050 / 1050 Lab / Micro Data 04/08/24 06:12 04/08/24 06:12 Labs: Laboratory Results - last 24 hr 04/08/24 06:12: WBC 6.0, RBC 4.47 L, Hgb 14.6, Hct 44.0, MCV 98.4 H, MCH 32.7 H, MCHC 33.2, RDW Std Deviation 47.0 H, RDW Coeff of Aly 13.0, Plt Count 270, MPV 9.9, Immature Gran % (Auto) 0.300, Neut % (Auto) 67.7, Lymph % (Auto) 20.0, [place] % (Auto) 8.7, Eos % (Auto) 2.0, Baso % (Auto) 1.3 H, Absolute Neuts (auto) 4.1, Absolute Lymphs (auto) 1.20, Nucleated RBC % 0, Sodium 142, Potassium 3.9, C hloride 108 H, Carbon Dioxide 24.0, Anion Gap 9, BUN 12, Creatinine 1.15, Estim Creat Clear Calc 50.86, Est GFR (MDRD) Af Amer 80, Est GFR (MDRD) Non-Af 66, BUN/Creatinine Ratio 10.4, Glucose 92, Calcium 9.6 Physical Exam Const alert and no apparent distress HEENT head/scalp atraumatic and moist oral mucous membranes Resp normal respiratory effort, no retractions, no use of accessory muscles and clear to auscultation bilaterally Cardio regular rate, regular rhythm, S1 normal heart sound and S2 normal heart sound GI normal to inspection, nondistended, normoactive bowel sounds, soft to palpation, non-tender and non-distended Extremity normal to inspection and full ROM Neuro Sensorium / Orientation: awake and alert Assessment & Plan Assessment/Plan (1) Compression fx, lumbar spine: (2) Syncope: (3) Falls: PLAN: Plan Fall * pt recalls falling. Doubt syncope. Suspect due to chronic debility. * head CT showed no acute process. Low EF * EF 50%, down from 2021. Follow up with cardiology as outpt. L2-3 compression fractures. * suspect chronic * T-spine CT on 02/19 noted L2 compression fracture of uncertain age (L3 not visualized) * 25-OH d level 35.4. Start ergocalciferol HTN urgency * improved * continue nifedipine, losartan, metoprolol tartrate, clonidine Chronic conditions: * COPD: stable * afib: continue daily dosing of metoprolol tartrate. No anticoagulants given h/o GI bleed, and falls also make their use higher risk. VTE prophylaxis: LMWH. Charges/Coding Visit Charges Inpatient E&M: 17469 Subs Hosp L2
[2024-04-08 12:26] LABS: Vitamin D,25 Hydroxy 35.4 ng/mL
--- NOTE | 2024-04-08 13:45 | CASEMGMT ---
[facility] Face to Face with patient for initial transition planning/care coordination assessment. RN CM introduced self and role at [facility]. Patient lying in bed, alert and oriented. Patient willing to participate in assessment and is able to answer all questions appropriately. Care providers, pharmacy, and demographics verified. Strata: 3 PCP: Misael Specialists: none Preferred Pharmacy: [facility] Insurance: [facility] Prescription Benefit: yes Living Will/HPOA: yes, ex- Giovana Bhakta LNOK: ex-, daughter Living Arrangements: Patient lives alone in a mobile home with 5 steps to enter. Patient states he was independent at home. Transportation: ex- DME/HHC: Patient has cane at home. No previous HHC, patient has been to [facility] in the past. RN RAMANA reviewed progress with therapy, requiring moderate assist x2. Discuss possible SNF at discharge. Patient agreeable to SNF and prefers [facility], declined SNF list . Patient states he has no further needs or concerns at this time. SW updated regarding request for [facility]. CM to follow for discharge planning needs that may arise. Disposition Plan: SNF pending acceptance. Nohemi MOONEY, RN, CM
--- NOTE | 2024-04-08 14:22 | CASEMGMT ---
Social Work Per RNCM, pt is requesting placement at [facility] and denies need for SNF list. DC group fitness assistant department head updated and referral to be sent to [facility]. SW left VM with pt dgt requesting return call. Plan: [facility], pending acceptance SHANE Tinoco
--- NOTE | 2024-04-08 14:33 | CASEMGMT ---
Addendum entered by Jacquie Michaud 04/08/24 16:38: [facility] has accepted. Jacquie Michaud DC Planning Asst. Original Note: Discharge Planning Referral sent to [facility] via [facility]. Jacquie Michaud DC Planning Asst.
[2024-04-08] MEDS: Ergocalciferol 1.25 MG (50, 000 UNIT) Capsule PO (19:53)
[2024-04-08] MEDS: Albuterol 2.5 MG/3 ML VIAL.NEB. INHALATION (20:10)
[2024-04-08] MEDS: Budesonide Respules 0.5 MG/2 ML AMPUL.NEB. INHALATION (20:10)
[2024-04-08] MEDS: Atorvastatin Calcium 40 MG Tablet PO (22:26)
[2024-04-08] MEDS: Mirtazapine 15 MG Tablet PO (22:26)
[2024-04-08] MEDS: Tamsulosin HCl 0.4 MG Capsule PO (22:26)
[2024-04-09] VITALS (8 sets, daily range): BP systolic 91–146; BP diastolic 54–68; PULSE 50–64; RESP 16–18; TEMP 35.9–36.5; O2SAT 93–96
[2024-04-09] MEDS: hydrOXYzine 50 MG/ML Vial 100 MG IM (01:56)
[2024-04-09] MEDS: Haloperidol Lactate 5 MG/ML Vial 2 MG IM (03:41)
[2024-04-09 06:43] LABS: Absolute Lymphocyte Count 1.04 X10^3/uL (0.83-4.51); Absolute Neutrophil Count 5.9 X10^3/uL (2.0-7.7); Basophil# 0.05 X10^3/uL; Basophil% 0.7 % (0-1); Eosinophil# 0.07 X10^3/uL; Eosinophils% 0.9 % (0-5); Hematocrit 45.7 % (40-54); Lymphocyte # 1.04 X10^3/ul (0.83-4.51); Lymphocyte % 13.6 % (19-41); Mean Corp Hgb Conc 32.8 g/dL (32-36); Mean Corpuscular Hgb 32.5 pg (27.0-32.0); Mean Corpuscular Volume 98.9 fL (80-94); Monocyte# 0.55 X10^3/uL; Monocyte% 7.2 % (0-10); NRBC Flagged by Analyzer 0 % (0-5); Neutrophil % 77.1 % (47-70); Platelet Count 309 K/mm3 (150-450); RBC Distribution Width CV 13.2 % (11.6-14.6); Red Blood Count 4.62 M/mm3 (4.6-6.2); White Blood Count 7.7 K/mm3 (4.4-11.0)
[2024-04-09] MEDS: Budesonide Respules 0.5 MG/2 ML AMPUL.NEB. INHALATION (07:14)
[2024-04-09] MEDS: Albuterol 2.5 MG/3 ML VIAL.NEB. INHALATION ×2 (07:14→13:22)
[2024-04-09 07:29] LABS: Anion Gap 4 (5-15); BUN 22 mg/dL (7-18); BUN/Creat Ratio 15.3 RATIO (10-20); Calcium,Total 9.8 mg/dL (8.5-10.1); Chloride 107 mmol/L (98-107); Creatinine, Serum 1.44 mg/dL (0.70-1.30); EST Glomerular Filtration Rate 51 mL/min (>60); Est Glom Filt Rate - Afr Amer 62 mL/min (>60); Estimated Creatinine Clearance 40.61 ml/min; Glucose 97 mg/dL (74-106); Sodium Level 137 mmol/L (136-145)
--- NOTE | 2024-04-09 10:19 | PCM.PN.HOSP ---
Reason for Visit Reason for Visit: Diagnoses Essential (primary) hypertension (04/07/24) Repeated falls (04/07/24) Syncope and collapse (04/07/24) Wedge compression fracture of unspecified lumbar vertebra, initial encounter for closed fracture (04/07/24) Subjective Subjective Asking me, Who are you?. Objective Data Objective Data Vital Signs: Vital Signs Temp Pulse Resp BP Pulse Ox O2 Del Method O2 Flow Rate 35.9 C L 57 L 16 146/63 H 93 Room Air 2 04/09/24 09:15 04/09/24 09:15 04/09/24 09:15 04/09/24 09:15 04/09/24 09:15 04/09/24 09:15 04/09/24 08:43 Oxygen Flow Rate (L/min) 2 Oxygen Delivery Method Room Air Weight: 65 kg Body Mass Index (BMI) 23.1 Intake & Output: Intake and Output for Last 24 Hours 04/07/24 04/08/24 04/09/24 23:59 23:59 23:59 Intake Total 1150 / 1150 Output Total 100 / 100 300 / 300 Balance 1050 / 1050 -300 / -300 Lab / Micro Data 04/09/24 05:52 04/09/24 05:52 Labs: Laboratory Results - last 24 hr 04/08/24 06:12: Vitamin D 25-Hydroxy 35.4 04/09/24 05:52: WBC 7.7, RBC 4.62, Hgb 15.0, Hct 45.7, MCV 98.9 H, MCH 32.5 H, MCHC 32.8, RDW Std Deviation 48.0 H, RDW Coeff of Aly 13.2, Plt Count 309, MPV 10.0, Immature Gran % (Auto) 0.500, Neut % (Auto) 77.1 H, Lymph % (Auto) 13.6 L, Gregg % (Auto) 7.2, Eos % (Auto) 0.9, Baso % (Auto) 0.7, Absolute Neuts (auto) 5.9, Absolute Lymphs (auto) 1.04, Nucleated RBC % 0, Sodium 137, Potassium 4.0, Chloride 107, Carbon Dioxide 26.0, Anion Gap 4 L, BUN 22 H, Creatinine 1.44 H, Estim Creat Clear Calc 40.61, Est GFR (MDRD) Af Amer 62, Est GFR (MDRD) Non-Af 51 L, BUN/Creatinine Ratio 15.3, Glucose 97, Calcium 9.8 Radiography Diagnostic Testing: Radiology Impression Echocardiogram 04/06/24 18:02 Interpretation Summary Technically difficult study with suboptimal images Mild concentric left ventricular hypertrophy. The left ventricular ejection fraction is 50 %. Trileaflet aortic valve with mildly thickened leaflets. Leaflet excursion appears mildly restricted. Patient markedly bradycardic during the study. Ordering Physician: Brody Maynard Performed By: Rj King RCS Physical Exam Const alert and no apparent distress HEENT head/scalp atraumatic and moist oral mucous membranes Resp normal respiratory effort, no retractions, no use of accessory muscles and clear to auscultation bilaterally Cardio regular rate, regular rhythm, S1 normal heart sound and S2 normal heart sound GI normal to inspection, nondistended, normoactive bowel sounds, soft to palpation, non-tender and non-distended Extremity normal to inspection and full ROM Assessment & Plan Assessment/Plan (1) Compression fx, lumbar spine: (2) Syncope: (3) Falls: PLAN: Plan Fall pt recalls falling. Doubt syncope. Suspect due to chronic debility. head CT showed no acute process. Low EF EF 50%, down from 2021. Follow up with cardiology as outpt. L2-3 compression fractures. suspect chronic T-spine CT on 02/19 noted L2 compression fracture of uncertain age (L3 not visualized) 25-OH d level 35.4. Start ergocalciferol HTN urgency improved continue nifedipine, losartan, metoprolol tartrate, clonidine Chronic conditions: COPD: stable afib: continue daily dosing of metoprolol tartrate. No anticoagulants given h/o GI bleed, and falls also make their use higher risk. VTE prophylaxis: LMWH. Disposition: to [facility] on 04/10 Charges/Coding Visit Charges Inpatient E&M: 74298 Subs Hosp L2
[2024-04-09] MEDS: Enoxaparin 40 MG/0.4 ML Syringe SC (11:07)
[2024-04-09] MEDS: cloNIDine HCl 0.2 MG Tablet PO (11:07)
[2024-04-09] MEDS: Pantoprazole Sodium 40 MG Tablet PO (11:08)
[2024-04-09] MEDS: Losartan Potassium 100 MG Tablet PO (11:12)
[2024-04-09] MEDS: Sertraline 100 MG Tablet PO (11:12)
[2024-04-09] MEDS: Clopidogrel Bisulfate 75 MG Tablet PO (11:12)
[2024-04-09] MEDS: NIFEdipine 90 MG Tablet PO (11:12)
[2024-04-09] MEDS: guaiFENesin/D-Methorphan TAB.SR.12H 2 TABLET PO ×2 (11:12→23:13)
[2024-04-09] MEDS: carBAMazepine 200 MG Tablet PO ×2 (11:13→23:13)
[2024-04-09] MEDS: Finasteride 5 MG Tablet PO (11:13)
[2024-04-09] MEDS: Metoprolol Tartrate 25 MG Tablet PO (11:31)
[2024-04-09] MEDS: Acetaminophen 500 MG Tablet 1000 MG PO ×2 (13:48→23:13)
--- NOTE | 2024-04-09 19:48 | NURSING ---
Attempted to call pts daughter Michelle with update. No answer. VM left to call back if she would like to talk with nurse.
[2024-04-09] MEDS: Mirtazapine 15 MG Tablet PO (23:13)
[2024-04-09] MEDS: Atorvastatin Calcium 40 MG Tablet PO (23:13)
[2024-04-09] MEDS: Tamsulosin HCl 0.4 MG Capsule PO (23:14)
[2024-04-10 06:30] VITALS: BP 160/71; PULSE 57; RESP 18; TEMP 36.4; O2SAT 95
[2024-04-10] MEDS: Acetaminophen 500 MG Tablet 1000 MG PO (06:50)
[2024-04-10 07:16] LABS: Anion Gap 5 (5-15); BUN 28 mg/dL (7-18); BUN/Creat Ratio 16.1 RATIO (10-20); Calcium,Total 9.4 mg/dL (8.5-10.1); Chloride 106 mmol/L (98-107); Creatinine, Serum 1.74 mg/dL (0.70-1.30); EST Glomerular Filtration Rate 41 mL/min (>60); Est Glom Filt Rate - Afr Amer 50 mL/min (>60); Estimated Creatinine Clearance 33.61 ml/min; Glucose 90 mg/dL (74-106); Potassium 4.1 mmol/L (3.5-5.1); Sodium Level 136 mmol/L (136-145)
[2024-04-10 08:12] LABS: Absolute Lymphocyte Count 1.36 X10^3/uL (0.83-4.51); Absolute Neutrophil Count 5.5 X10^3/uL (2.0-7.7); Basophil# 0.05 X10^3/uL; Basophil% 0.7 % (0-1); Eosinophil# 0.02 X10^3/uL; Eosinophils% 0.3 % (0-5); Hematocrit 45.6 % (40-54); Hemoglobin 15.4 g/dL (13.0-16.5); Lymphocyte # 1.36 X10^3/ul (0.83-4.51); Mean Corp Hgb Conc 33.8 g/dL (32-36); Mean Corpuscular Hgb 33.6 pg (27.0-32.0); Mean Corpuscular Volume 99.3 fL (80-94); Mean Platelet Vol. 10.1 fl (6.2-12.0); Monocyte# 0.53 X10^3/uL; NRBC Flagged by Analyzer 0 % (0-5); Neutrophil # 5.53 X10^3/uL (2.7-7.7); Neutrophil % 73.2 % (47-70); Platelet Count 296 K/mm3 (150-450); RBC Distribution Width CV 13.4 % (11.6-14.6); RBC Distribution Width SD 48.8 fl (35.1-43.9); Red Blood Count 4.59 M/mm3 (4.6-6.2); White Blood Count 7.6 K/mm3 (4.4-11.0)
[2024-04-10 09:04] VITALS: BP 134/67; PULSE 52; RESP 16; TEMP 35.7; O2SAT 92
[2024-04-10 09:08] VITALS: BP 134/67; PULSE 52
[2024-04-10] MEDS: Metoprolol Tartrate 25 MG Tablet PO (09:08)
[2024-04-10] MEDS: cloNIDine HCl 0.2 MG Tablet PO (09:08)
[2024-04-10] MEDS: guaiFENesin/D-Methorphan TAB.SR.12H 2 TABLET PO (09:09)
[2024-04-10] MEDS: Enoxaparin 40 MG/0.4 ML Syringe SC (09:09)
[2024-04-10] MEDS: Losartan Potassium 100 MG Tablet PO (09:09)
[2024-04-10] MEDS: Clopidogrel Bisulfate 75 MG Tablet PO (09:10)
[2024-04-10] MEDS: Pantoprazole Sodium 40 MG Tablet PO (09:11)
[2024-04-10] MEDS: carBAMazepine 200 MG Tablet PO (09:11)
[2024-04-10] MEDS: Finasteride 5 MG Tablet PO (09:11)
[2024-04-10] MEDS: Sertraline 100 MG Tablet PO (09:12)
[2024-04-10] MEDS: NIFEdipine 90 MG Tablet PO (10:10)
[2024-04-10] MEDS: Senna/Docusate Sodium 1 Tablet 2 TABLET PO (10:10)
--- NOTE | 2024-04-10 11:33 | TREXTCAR_ITS ---
Diet Diet Order/Speech Therapy: 04/07/24 16:52 Diet: Regular - No Added Salt Food consistency:: Regular Liquid Consistency:: Regular/Thin Type of Dietary Supplement:: Ensure Plus High Protein Diet Comments: 240mL ensure plus HP w/ breakfast and dinner tray Routine Orders/Code Status Code Status: Full Code Therapies Weight Bearing: Full weight bearing Physical Therapy: Eval and Treat Occupational Therapy: Eval and Treat Problem/Diagnosis (1) Compression fx, lumbar spine: Status: Acute Code(s): S32.000A - Wedge compression fracture of unspecified lumbar vertebra, initial encounter for closed fracture (2) Syncope: Status: Acute Code(s): R55 - Syncope and collapse (3) Falls: Status: Acute Code(s): R29.6 - Repeated falls Plan Fall * pt recalls falling. Doubt syncope. Suspect due to chronic debility. * head CT showed no acute process. Low EF * EF 50%, down from 2021. Follow up with cardiology as outpt. L2-3 compression fractures. * suspect chronic * T-spine CT on 02/19 noted L2 compression fracture of uncertain age (L3 not visualized) * 25-OH d level 35.4. Start ergocalciferol HTN urgency * improved * continue nifedipine, losartan, metoprolol tartrate, clonidine Chronic conditions: * COPD: stable * afib: continue daily dosing of metoprolol tartrate. No anticoagulants given h/o GI bleed, and falls also make their use higher risk. VTE prophylaxis: LMWH. Disposition: to [facility] on 04/10 Allergies/Procedures Done in Hospital Allergies No Known Allergies Allergy (Verified 04/06/24 11:12) Procedures: 2-D Echocardiogram Type of Care/Length of Stay Estimated LOS: Convalescent Care Less Than 30 days Type of Care Needed: Skilled Rehab Potential: Fair Prognosis: Fair Additional Orders/Day of Discharge Day of Discharge: 04/10/24 Dietary and Speech Recommendations Dietitian Recommendations/Changes: Will liberalize diet to regular/no added salt to help optimize oral intake at meals. Will add 240mL ensure plus HP w/ breakfast and dinner. Adjust ONS as needed to support energy/protein needs. Discharge Plan Admission Admit Date/Time: 04/07/24 15:30 Primary Reason for Your Visit: fall Attending Provider: Raul Merino Primary Care Provider: Daija Douglas Consulting Providers: Brody Maynard; Kathi Ibrahim Discharge Orders/Prescriptions Prescriptions: New ergocalciferol (vitamin D2) [Vitamin D2] 1,250 mcg (50,000 unit) Capsule 1,250 mcg PO Q7D Qty: 0 0RF Continued albuterol sulfate 90 mcg/actuation HFA aerosol inhaler 1 puff inhalation Q8H carbamazepine 200 mg tablet extended release 12 hr 200 mg PO Q12H guaifenesin 100 mg/5 mL liquid 200 mg PO Q4H PRN (Reason: congestion) sertraline 100 mg tablet 100 mg PO DAILY cholecalciferol (vitamin D3) 50 mcg (2,000 unit) tablet 50 mcg PO DAILY clonidine HCl 0.1 mg tablet 0.1 mg PO BID tamsulosin 0.4 MG capsule 0.4 mg PO QHS Patient Comments: Prostate and urine finasteride 5 MG tablet 5 mg PO DAILY Patient Comments: prostate atorvastatin 40 MG tablet 40 mg PO QHS Patient Comments: CHOLESTEROL mirtazapine 15 MG tablet 15 mg PO QHS clopidogrel 75 MG tablet 75 mg PO DAILY losartan 100 mg tablet 100 mg PO DAILY pantoprazole 40 mg tablet,delayed release (DR/EC) 40 mg PO DAILY nifedipine 90 mg tablet extended release 90 mg PO DAILY alendronate 70 mg tablet 70 mg PO QWEEK Qty: 1 0RF metoprolol tartrate 25 mg tablet 25 mg PO DAILY sennosides-docusate sodium [Stool Softener-Stimulant Laxat] 8.6-50 mg Tablet 2 tab PO BID PRN PRN (Reason: Constipation) Qty: 0 0RF acetaminophen 500 mg Tablet 1,000 mg PO Q8 30 Days Qty: 0 0RF Discontinued aluminum-magnesium hydroxide 225-200 mg/5 mL suspension 30 ml PO Q4H PRN guaifenesin 400 mg tablet 400 mg PO BID PRN (Reason: congestion) oxycodone 5 mg Tablet 5 - 10 mg PO Q4H PRN PRN (Reason: Pain Score 6-10) 2 Days Qty: 10 0RF Referrals / Follow Up: [facility] [Provider Group] - Within 3 Months Daija Douglas MD [Primary Care Provider] - Within 2 Weeks Disposition Disposition (needs filled in before D/C Order can be placed): Care Home Facility
--- NOTE | 2024-04-10 11:46 | CASEMGMT ---
Patient is ready for discharge to [facility]. 7000 was completed in [facility] system. [facility] transport patient. Plan: d/c to [facility] under skilled level of care on a convalescent stay. [facility] will transport patient via cot. Mago TOWNSEND
--- NOTE | 2024-04-10 12:09 | CASEMGMT ---
Discharge Planning Discharge orders, signed med list, and transport time sent via [facility] to [facility]. [facility] will transport patient by cot at 1p. Nursing, SW, patient, and his sister (Giovana) updated. Jacquie Michaud DC Planning Asst.
[2024-04-10 12:19] VITALS: BP 97/52; PULSE 51; RESP 16; TEMP 36.1; O2SAT 92
--- NOTE | 2024-04-10 12:38 | DS.PCM_ITS ---
Providers Date of Admission: 04/07/24 Primary Care Physician: Dr. Daija Douglas MD Reason For Visit: HTN URGENCY, SYNCOPE Diagnosis Discharge Diagnosis (1) Compression fx, lumbar spine: Status: Acute Code(s): S32.000A - Wedge compression fracture of unspecified lumbar vertebra, initial encounter for closed fracture (2) Syncope: Status: Acute Code(s): R55 - Syncope and collapse (3) Falls: Status: Acute Code(s): R29.6 - Repeated falls Plan Fall * pt recalls falling. Doubt syncope. Suspect due to chronic debility. * head CT showed no acute process. Low EF * EF 50%, down from 2021. Follow up with cardiology as outpt. * continue losartan, metoprolol tartrate L2-3 compression fractures. * suspect chronic * T-spine CT on 02/19 noted L2 compression fracture of uncertain age (L3 not visualized) * 25-OH d level 35.4. Start ergocalciferol HTN urgency * improved * continue nifedipine, losartan, metoprolol tartrate, clonidine Chronic conditions: * COPD: stable * afib: continue daily dosing of metoprolol tartrate. No anticoagulants given h/o GI bleed, and falls also make their use higher risk. VTE prophylaxis: LMWH. Disposition: to [facility] today Medications at Discharge Home Medications tamsulosin 0.4 mg capsule 0.4 mg PO QHS bph 01/26/14 finasteride 5 mg tablet 5 mg PO DAILY prostate 11/14/14 atorvastatin 40 mg tablet 40 mg PO QHS Cholesterol 09/23/15 mirtazapine 15 mg tablet 15 mg PO QHS anti depressant 08/16/19 clopidogrel 75 mg tablet 75 mg PO DAILY blood thinner 10/25/19 losartan 100 mg tablet 100 mg PO DAILY Blood pressure 08/19/21 pantoprazole 40 mg tablet,delayed release 40 mg PO DAILY GERD 08/19/21 nifedipine 90 mg tablet,extended release 90 mg PO DAILY blood pressure 11/25/21 alendronate 70 mg tablet 70 mg PO QWEEK #1 TAB 11/30/21 metoprolol tartrate 25 mg tablet 25 mg PO DAILY Blood pressure 03/30/23 sennosides 8.6 mg-docusate sodium 50 mg tablet (Stool Softener-Stimulant Laxative) 2 tab PO BID PRN PRN Constipation #0 tabs 04/04/23 acetaminophen 500 mg tablet 1,000 mg (2 x 500 mg) PO Q8 30 days #0 tabs 07/26/23 albuterol sulfate 90 mcg/actuation aerosol inhaler 1 puff inhalation Q8H 08/22/23 carbamazepine 200 mg tablet,extended release,12 hr 200 mg PO Q12H 08/22/23 cholecalciferol (vitamin D3) 50 mcg (2,000 unit) tablet 50 mcg PO DAILY 08/22/23 clonidine HCl 0.1 mg tablet 0.1 mg PO BID 08/22/23 guaifenesin 100 mg/5 mL oral liquid 200 mg PO Q4H PRN congestion 08/22/23 sertraline 100 mg tablet 100 mg PO DAILY 08/22/23 ergocalciferol (vitamin D2) 1,250 mcg (50,000 unit) capsule (Vitamin D2) 1,250 mcg PO Q7D #0 caps 04/10/24 Physical Exam Const alert Constitutional Narrative: sleeping in bed. groggy. afebrile. Cardio regular rate, regular rhythm, S1 normal heart sound and S2 normal heart sound GI normal to inspection, nondistended, normoactive bowel sounds, soft to palpation, non-tender and non-distended Extremity normal to inspection and full ROM Neuro Sensorium / Orientation: awake and alert Weight / BMI Weight Weight: 65 kg Body Mass Index (BMI) 23.1 ABG / Lab / Microbiology Data 04/10/24 06:10 04/10/24 06:10 Laboratory: Laboratory Results - last 24 hr 04/10/24 06:10: WBC 7.6, RBC 4.59 L, Hgb 15.4, Hct 45.6, MCV 99.3 H, MCH 33.6 H, MCHC 33.8, RDW Std Deviation 48.8 H, RDW Coeff of Aly 13.4, Plt Count 296, MPV 10.1, Immature Gran % (Auto) 0.800, Neut % (Auto) 73.2 H, Lymph % (Auto) 18.0 L, Maverick % (Auto) 7.0, Eos % (Auto) 0.3, Baso % (Auto) 0.7, Absolute Neuts (auto) 5.5, Absolute Lymphs (auto) 1.36, Nucleated RBC % 0, Sodium 136, Potassium 4.1, Chloride 106, Carbon Dioxide 25.0, Anion Gap 5, BUN 28 H, Creatinine 1.74 H, Estim Creat Clear Calc 33.61, Est GFR (MDRD) Af Amer 50 L, Est GFR (MDRD) Non-Af 41 L, BUN/Creatinine Ratio 16.1, Glucose 90, Calcium 9.4 Meaningful Use Info Meaningful Use Meaningful Use Diagnoses (Choose all that apply): None applicable Ischemic Stroke Statin Dosing Therapy Reference: STATIN DOSE THERAPY REFERENCE: * Patients > 75 years receive moderate or high dose statin therapy. * Patients 75 years or YOUNGER should receive HIGH intensity statin dose unless contraindicated. You will be required to document reason for non-treatment if statin daily dose does not meet guidelines. HIGH DOSE STATIN THERAPY DAILY Atorvastatin > than or = to 40 mg Rosuvastatin > than or = to 20 mg Amlodipine + Atorvastatin > than or = to 2.5/40 mg Ezetimibe + Simvastatin 10/80 mg Simvastatin 80mg Discharge Plan Admission Admit Date/Time: 04/07/24 15:30 Primary Reason for Your Visit: fall Attending Provider: Raul Merino Primary Care Provider: Daija Douglas Consulting Providers: Brody Maynard; Kathi Ibrahim Discharge Orders/Prescriptions Prescriptions: New ergocalciferol (vitamin D2) [Vitamin D2] 1,250 mcg (50,000 unit) Capsule 1,250 mcg PO Q7D Qty: 0 0RF Continued albuterol sulfate 90 mcg/actuation HFA aerosol inhaler 1 puff inhalation Q8H carbamazepine 200 mg tablet extended release 12 hr 200 mg PO Q12H guaifenesin 100 mg/5 mL liquid 200 mg PO Q4H PRN (Reason: congestion) sertraline 100 mg tablet 100 mg PO DAILY cholecalciferol (vitamin D3) 50 mcg (2,000 unit) tablet 50 mcg PO DAILY clonidine HCl 0.1 mg tablet 0.1 mg PO BID tamsulosin 0.4 MG capsule 0.4 mg PO QHS Patient Comments: Prostate and urine finasteride 5 MG tablet 5 mg PO DAILY Patient Comments: prostate atorvastatin 40 MG tablet 40 mg PO QHS Patient Comments: CHOLESTEROL mirtazapine 15 MG tablet 15 mg PO QHS clopidogrel 75 MG tablet 75 mg PO DAILY losartan 100 mg tablet 100 mg PO DAILY pantoprazole 40 mg tablet,delayed release (DR/EC) 40 mg PO DAILY nifedipine 90 mg tablet extended release 90 mg PO DAILY alendronate 70 mg tablet 70 mg PO QWEEK Qty: 1 0RF metoprolol tartrate 25 mg tablet 25 mg PO DAILY sennosides-docusate sodium [Stool Softener-Stimulant Laxat] 8.6-50 mg Tablet 2 tab PO BID PRN PRN (Reason: Constipation) Qty: 0 0RF acetaminophen 500 mg Tablet 1,000 mg PO Q8 30 Days Qty: 0 0RF Discontinued aluminum-magnesium hydroxide 225-200 mg/5 mL suspension 30 ml PO Q4H PRN guaifenesin 400 mg tablet 400 mg PO BID PRN (Reason: congestion) oxycodone 5 mg Tablet 5 - 10 mg PO Q4H PRN PRN (Reason: Pain Score 6-10) 2 Days Qty: 10 0RF Referrals / Follow Up: [facility] [Provider Group] - Within 3 Months Daija Douglas MD [Primary Care Provider] - Within 2 Weeks Disposition Disposition (needs filled in before D/C Order can be placed): Senior Living Facility Charges/Coding Visit Charges Inpatient E&M: 32877 Disch Hosp
--- NOTE | 2024-04-10 12:58 | NURSING ---
[facility] and spoke with Robina @ 12:56
--- NOTE | 2024-04-10 14:42 | PHA.DC.MR.R ---
Pharmacy [place] Med Reconciliation Pharmacy Service has performed discharge medication reconciliation for this patient. The patient's discharge medication list was reviewed for discrepancies and discrepancies were resolved. Medications at Discharge Home Medications tamsulosin 0.4 mg capsule 0.4 mg PO QHS bph 01/26/14 finasteride 5 mg tablet 5 mg PO DAILY prostate 11/14/14 atorvastatin 40 mg tablet 40 mg PO QHS Cholesterol 09/23/15 mirtazapine 15 mg tablet 15 mg PO QHS anti depressant 08/16/19 clopidogrel 75 mg tablet 75 mg PO DAILY blood thinner 10/25/19 losartan 100 mg tablet 100 mg PO DAILY Blood pressure 08/19/21 pantoprazole 40 mg tablet,delayed release 40 mg PO DAILY GERD 08/19/21 nifedipine 90 mg tablet,extended release 90 mg PO DAILY blood pressure 11/25/21 alendronate 70 mg tablet 70 mg PO QWEEK #1 TAB 11/30/21 metoprolol tartrate 25 mg tablet 25 mg PO DAILY Blood pressure 03/30/23 sennosides 8.6 mg-docusate sodium 50 mg tablet (Stool Softener-Stimulant Laxative) 2 tab PO BID PRN PRN Constipation #0 tabs 04/04/23 acetaminophen 500 mg tablet 1,000 mg (2 x 500 mg) PO Q8 30 days #0 tabs 07/26/23 albuterol sulfate 90 mcg/actuation aerosol inhaler 1 puff inhalation Q8H 08/22/23 carbamazepine 200 mg tablet,extended release,12 hr 200 mg PO Q12H 08/22/23 cholecalciferol (vitamin D3) 50 mcg (2,000 unit) tablet 50 mcg PO DAILY 08/22/23 clonidine HCl 0.1 mg tablet 0.1 mg PO BID 08/22/23 guaifenesin 100 mg/5 mL oral liquid 200 mg PO Q4H PRN congestion 08/22/23 sertraline 100 mg tablet 100 mg PO DAILY 08/22/23 ergocalciferol (vitamin D2) 1,250 mcg (50,000 unit) capsule (Vitamin D2) 1,250 mcg PO Q7D #0 caps 04/10/24
--- NOTE | 2024-04-16 18:59 | CASEMGMT ---
Social Work - Adult Protective Services Received call from Ramirez at [facility], who has had a call regarding the patient. Ramirez asking for discharge disposition. For continuity of care, to assist in APS needs, notified of discharge to [facility] on 04.10.24. No other services requested. -VASILE Mcwilliams
== END 2024-04-10 15:04 | disposition skilled nursing facility (03) | DRG 552 ==
LOC: ED 16:13 → PCU 17:37
PROVIDERS: Student in an Organized Health Care Education/Training Program; Admitting Provider Internal Medicine; Emergency Provider Emergency Medicine; PCP Internal Medicine
DX: S32.000A Wedge compression fracture of unspecified lumbar vertebra, initial encounter for closed fracture (principal); I16.0 Hypertensive urgency; E11.22 Type 2 diabetes mellitus with diabetic chronic kidney disease; J44.9 Chronic obstructive pulmonary disease, unspecified; N18.32 Chronic kidney disease, stage 3b; I12.9 Hypertensive chronic kidney disease with stage 1 through stage 4 chronic kidney disease, or unspecified chronic kidney disease; I48.0 Paroxysmal atrial fibrillation; E78.00 Pure hypercholesterolemia, unspecified; F17.210 Nicotine dependence, cigarettes, uncomplicated; G47.30 Sleep apnea, unspecified; W19.XXXA Unspecified fall, initial encounter; Z79.51 Long term (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 of inhaled steroids; Z79.899 Other long term (current) drug therapy; Z86.73 Personal history of transient ischemic attack (TIA), and cerebral infarction without residual deficits
CPT/HCPCS: 36415; 70450; 71045; 72070; 72100; 72125; 80048; 81001; 82306; 83735; 84443; 84484; 85025; 93005; 93306; 94640; 94668; 97116; 97162; 97166; 97530; 97535; 97802; 99285; J7030; J7120; A4216; J2405

== ENCOUNTER 2024-08-25 16:10 | Inpatient (IN) | payer MEDICARE, MEDICAID, SELFPAY ==
[2024-08-25] VITALS (7 sets, daily range): BP systolic 153–214; BP diastolic 71–90; PULSE 60–74; RESP 18–24; TEMP 36.5–36.6; O2SAT 88–95; BMI 23.1
--- NOTE | 2024-08-25 16:19 | RAD_ITS ---
PROCEDURE: CHEST 1 VIEW (PORTABLE) REASON FOR EXAM: Weakness TECHNIQUE: Frontal view of the chest. COMPARISON: 04/06/2024 FINDINGS: Cardiomediastinal silhouette is within normal limits. Lungs are clear. No sizable pneumothorax. Emphysema. RAD/Chest 1 View (Portable) IMPRESSION: No acute airspace abnormality. Reading Location: [facility]
--- NOTE | 2024-08-25 16:20 | ED.VIS.GI ---
HPI HPI - GI History of Present Illness Chief Complaint: Confusion Informant: patient and EMS Narrative Narrative: 74-year-old male presents with diarrhea and feeling weak. Daughter is not here but she called in the provide a little bit of extra history before the patient's arrival, apparently he has been in a senior care [facility] when he arrived home 5 days ago, he was having diarrhea when he got home, patient states he was having it before he left the senior care as well, and he has been having diarrhea all over the daughter's trailer where he has been living, he has Alzheimer's, so he has been smoking and dropping cigarettes all over the trailer, is weak. History is limited for the patient but he states has been drinking fluids and not having abdominal pain and not vomiting. Denies any cough or out of breath. When asked if he was on antibiotics for anything recently he does not know. When asked if he has a history of C. difficile he does not know. [facility] Medical History Compression fx, lumbar spine Hypertension Falls Hypertension Closed fracture of right superior pubic ramus Multiple falls Compression fracture of thoracic vertebra History of atrial fibrillation Iron deficiency anemia Chronic respiratory failure with hypoxia Osteoporosis Lumbar compression fracture Compression fracture Obstructive sleep apnea Hyperlipidemia Asthma Peripheral arterial occlusive disease Seizure disorder Chronic obstructive pulmonary disease Coronary artery disease Lupus anticoagulant disorder BPH (benign prostatic hyperplasia) Ulcerative colitis Peripheral vascular disease Anxiety COPD (chronic obstructive pulmonary disease) with emphysema Closed fracture of right inferior pubic ramus Acute UTI COPD (chronic obstructive pulmonary disease) UTI (urinary tract infection) Depression Diabetes Kidney stones Chronic pain Pancreatitis On home oxygen therapy Irregular heart beat Atrial fibrillation Stroke/cerebrovascular accident Smoker Falls frequently Seizures Sleep apnea COPD (chronic obstructive pulmonary disease) Asthma High cholesterol Tobacco abuse Home Medications ?Medication ?Instructions ?Recorded ?Last Taken ?Type tamsulosin 0.4 mg capsule 0.4 mg PO QHS bph 01/26/14 03/28/23 History finasteride 5 mg tablet 5 mg PO DAILY prostate 11/14/14 03/28/23 History atorvastatin 40 mg tablet 40 mg PO QHS Cholesterol 09/23/15 03/28/23 History mirtazapine 15 mg tablet 15 mg PO QHS anti depressant 08/16/19 03/28/23 History clopidogrel 75 mg tablet 75 mg PO DAILY blood thinner 10/25/19 03/28/23 History losartan 100 mg tablet 100 mg PO DAILY Blood pressure 08/19/21 03/28/23 History pantoprazole 40 mg tablet,delayed 40 mg PO DAILY GERD 08/19/21 03/28/23 History release nifedipine 90 mg tablet,extended 90 mg PO DAILY blood pressure 11/25/21 03/28/23 History release alendronate 70 mg tablet 70 mg PO QWEEK #1 TAB 11/30/21 03/28/23 Rx metoprolol tartrate 25 mg tablet 25 mg PO DAILY Blood pressure 03/30/23 03/28/23 History sennosides 8.6 mg-docusate sodium 2 tab PO BID PRN PRN Constipation 04/04/23 Unknown Rx 50 mg tablet (Stool #0 tabs Softener-Stimulant Laxative) acetaminophen 500 mg tablet 1,000 mg (2 x 500 mg) PO Q8 30 07/26/23 Unknown Rx days #0 tabs albuterol sulfate 90 mcg/actuation 1 puff inhalation Q8H 08/22/23 Unknown History aerosol inhaler carbamazepine 200 mg 200 mg PO Q12H 08/22/23 Unknown History tablet,extended release,12 hr cholecalciferol (vitamin D3) 50 50 mcg PO DAILY 08/22/23 Unknown History mcg (2,000 unit) tablet clonidine HCl 0.1 mg tablet 0.1 mg PO BID 08/22/23 Unknown History guaifenesin 100 mg/5 mL oral liquid 200 mg PO Q4H PRN congestion 08/22/23 Unknown History sertraline 100 mg tablet 100 mg PO DAILY 08/22/23 Unknown History ergocalciferol (vitamin D2) 1,250 1,250 mcg PO Q7D #0 caps 04/10/24 Unknown Rx mcg (50,000 unit) capsule (Vitamin D2) Allergy/AdvReac Type Severity Reaction Status Date / Time No Known Allergies Allergy Verified 04/06/24 11:12 Family History Other Heart disease Surgical History S/P arterial stent History of appendectomy Social History household members: none Smoking Status: Current some day smoker tobacco type: cigarettes how long ago did patient quit smoking: Has not smoked in 7 weeks alcohol intake: former details: Former alcoholic quit several years ago substance use type: does not use caffeine: Yes Type: coffee Number of servings: 3 ROS ROS ED Constitutional Constitutional ED: Reports fatigue; Denies chills or fever(s) Eyes Eyes: Denies change in vision or diplopia ENT ENT ED: Denies rhinorrhea or sore throat Cardiovascular Cardiovascular: Denies chest pain or palpitations Respiratory/Chest Respiratory/Chest: Denies cough or dyspnea Gastrointestinal Gastrointestinal: Reports diarrhea; Denies abdominal pain, melena, nausea or vomiting Genitourinary Genitourinary ED: Denies dysuria or hematuria Musculoskeletal Musculoskeletal: Denies back pain or neck pain Integumentary Denies abscess or rash Neurologic Neurologic: Reports confusion; Denies abnormal speech, focal weakness, headache(s) or paresthesias Psychiatric Psychiatric: Denies suicidal thoughts EXAM Physical Exam Const Vital Signs: 08/25/24 16:12 Temperature 97.7 F L Temperature Source Temporal Positive well nourished and well developed General Appearance ED: well developed and NAD HEENT Reports moist mucous membranes normocephalic and atraumatic Eyes Eyes Narrative: Dilated right pupil with disconjugate gaze right eye. Left appears normal. Left EOMs generally intact. Neck full ROM, no lymphadenopathy and supple Resp normal respiratory effort and clear to auscultation bilaterally Cardio regular rate, regular rhythm and no murmurs Rate: Negative for tachycardic GI non-tender and non-distended Auscultation: normoactive bowel sounds Palpation: soft Back/Spine no CVA tenderness General Back: other FROM Extremity normal to inspection General Extremety ED: Negative for edema, pulses abnormal or tenderness General Extremity: Negative for edema or pulses abnormal Neuro CN's II-XII intact bilaterally and no sensory deficits noted Sensorium / Orientation: awake, alert, oriented to person and oriented to place Motor Exam: strength 5/5 throughout Psych mental status grossly normal and thought process normal Skin no rashes or lesions noted and no wounds Skin Narrative: Patient has brown diarrhea scattered about his legs, his feet, and his clothes. MDM MDM MDM Narrative Medical decision making narrative: Patient was given IV fluids, his vital signs were monitored and stable, obtained labs which are unremarkable, except for prerenal azotemia consistent with mild dehydration. Ordered enteric bacterial panel as well as C. difficile given the limited information available, he has not provided diarrhea yet for this test to be run but given his debility and history, plan will be admission to the hospital. Lab Data Attestation: I reviewed the patient's lab results. Labs: Laboratory Results - last 24 hr 08/25/24 16:40 WBC 5.9 RBC 4.52 L Hgb 14.2 Hct 43.3 MCV 95.8 H MCH 31.4 MCHC 32.8 RDW Std Deviation 46.6 H RDW Coeff of Aly 13.2 Plt Count 245 MPV 9.5 Immature Gran % (Auto) 0.300 Neut % (Auto) 78.4 H Lymph % (Auto) 10.3 L [place] % (Auto) 9.9 Eos % (Auto) 0.3 Baso % (Auto) 0.8 Absolute Neuts (auto) 4.6 Absolute Lymphs (auto) 0.61 L Nucleated RBC % 0 Sodium 139 Potassium 3.8 Chloride 102 Carbon Dioxide 24.5 Anion Gap 13 BUN 25 H Creatinine 1.17 Est GFR (MDRD) Non-Af 65 BUN/Creatinine Ratio 21.4 H Glucose 98 Calcium 10.0 Total Bilirubin 0.22 AST 26 ALT 32 Alkaline Phosphatase 77 Total Protein 7.7 Albumin 4.5 Globulin 3.2 Albumin/Globulin Ratio 1.4 Radiography Diagnostic Testing: Clinical Impression(s) from Imaging Studies Chest X-Ray 08/25/24 16:19 IMPRESSION: No acute airspace abnormality. Reading [facility] Management Discussion w/another healthcare provider: Hospitalist Discharge Plan Dx/Rx/DC Orders Clinical Impression: Debility, Acute diarrhea, Mild dehydration Disposition Disposition: [facility] Care [facility]
[2024-08-25] MEDS: 0.9% Normal Saline (1000mL) 1,000 ML 200 ML IV (16:41)
[2024-08-25 16:46] LABS: Absolute Lymphocyte Count 0.61 X10^3/uL (0.83-4.51); Absolute Neutrophil Count 4.6 X10^3/uL (2.0-7.7); Basophil# 0.05 X10^3/uL; Basophil% 0.8 % (0-1); Eosinophil# 0.02 X10^3/uL; Eosinophils% 0.3 % (0-5); Hematocrit 43.3 % (40-54); Hemoglobin 14.2 g/dL (13.0-16.5); Lymphocyte # 0.61 X10^3/ul (0.83-4.51); Lymphocyte % 10.3 % (19-41); Mean Corp Hgb Conc 32.8 g/dL (32-36); Mean Corpuscular Hgb 31.4 pg (27.0-32.0); Mean Corpuscular Volume 95.8 fL (80-94); Mean Platelet Vol. 9.5 fl (6.2-12.0); Monocyte# 0.59 X10^3/uL; Monocyte% 9.9 % (0-10); NRBC Flagged by Analyzer 0 % (0-5); Neutrophil # 4.64 X10^3/uL (2.7-7.7); Neutrophil % 78.4 % (47-70); Platelet Count 245 K/mm3 (150-450); RBC Distribution Width CV 13.2 % (11.6-14.6); RBC Distribution Width SD 46.6 fl (35.1-43.9); Red Blood Count 4.52 M/mm3 (4.6-6.2); White Blood Count 5.9 K/mm3 (4.4-11.0)
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
[2024-08-25 17:27] LABS: ALB/GLOB Ratio 1.4 RATIO (0.9-2.4); AST(SGOT) 26 U/L (<=37); Alanine Aminotransfer ALT/SGPT 32 U/L (<=46); Albumin, Serum 4.5 g/dL (3.4-4.8); Alkaline Phosphatase 77 U/L (40-129); Anion Gap 13 (5-15); BUN 25 mg/dL (4-19); BUN/Creat Ratio 21.4 RATIO (10-20); Carbon Dioxide 24.5 mmol/L (21.0-32.0); Chloride 102 mmol/L (98-108); Creatinine, Serum 1.17 mg/dL (0.70-1.20); EST Glomerular Filtration Rate 65 (>60); Globulin 3.2 g/dL (2.2-4.2); Glucose 98 mg/dL (70-99); Potassium 3.8 mmol/L (3.3-5.1); Protein, Total 7.7 g/dL (5.9-8.4); Sodium Level 139 mmol/L (133-145); Total Bilirubin 0.22 mg/dL (0.00-1.30)
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
--- NOTE | 2024-08-25 18:20 | PCM.HP.STD ---
HPI - General General Date of Admission: 08/25/24 Date of Service: 08/25/24 Chief Complaint: Diarrhea/generalized weakness HPI Narrative PEDRO PABLO SIERRA, is a 74 M who presented to the emergency department [facility] on 08/25/2024 with a chief complaint of generalized weakness and diarrhea. Patient had recently been at [facility] and was discharged about 5 days ago on 08/20/2024. His daughter called in and assisted with history but was not able to get the bedside at the time of my evaluation. Per her report he been having diarrhea since he was discharged home. He evidently was having it prior to discharge as well. He does have some baseline dementia and has been having diarrhea all of her house. He also smokes and has been dropping his cigarettes all of her trailer and she reports he has been having some weakness. It does not appear she has had any falls. Patient's review of systems is overall negative except for his diarrhea. He is not clear with his recent medical history and it does not appear he has been compliant with his medications. Vital signs on presentation showed temperature of 97.7, heart rate 66, blood pressure 197/90, respiratory was 24 and oxygen saturation is 93% on room air. His CBC is completely unremarkable. Chemistry panel is unremarkable. Chest x-ray is unremarkable for acute findings. [facility], LAT[facility] Medical History Compression fx, lumbar spine Hypertension Falls Hypertension Closed fracture of right superior pubic ramus Multiple falls Compression fracture of thoracic vertebra History of atrial fibrillation Iron deficiency anemia Chronic respiratory failure with hypoxia Osteoporosis Lumbar compression fracture Compression fracture Obstructive sleep apnea Hyperlipidemia Asthma Peripheral arterial occlusive disease Seizure disorder Chronic obstructive pulmonary disease Coronary artery disease Lupus anticoagulant disorder BPH (benign prostatic hyperplasia) Ulcerative colitis Peripheral vascular disease Anxiety COPD (chronic obstructive pulmonary disease) with emphysema Closed fracture of right inferior pubic ramus Acute UTI COPD (chronic obstructive pulmonary disease) UTI (urinary tract infection) Depression Diabetes Kidney stones Chronic pain Pancreatitis On home oxygen therapy Irregular heart beat Atrial fibrillation Stroke/cerebrovascular accident Smoker Falls frequently Seizures Sleep apnea COPD (chronic obstructive pulmonary disease) Asthma High cholesterol Tobacco abuse Home Medications ?Medication ?Instructions ?Recorded ?Last Taken ?Type tamsulosin 0.4 mg capsule 0.4 mg PO QHS bph 01/26/14 03/28/23 History finasteride 5 mg tablet 5 mg PO DAILY prostate 11/14/14 03/28/23 History atorvastatin 40 mg tablet 40 mg PO QHS Cholesterol 09/23/15 03/28/23 History mirtazapine 15 mg tablet 15 mg PO QHS anti depressant 08/16/19 03/28/23 History clopidogrel 75 mg tablet 75 mg PO DAILY blood thinner 10/25/19 03/28/23 History losartan 100 mg tablet 100 mg PO DAILY Blood pressure 08/19/21 03/28/23 History pantoprazole 40 mg tablet,delayed 40 mg PO DAILY GERD 08/19/21 03/28/23 History release nifedipine 90 mg tablet,extended 90 mg PO DAILY blood pressure 11/25/21 03/28/23 History release alendronate 70 mg tablet 70 mg PO QWEEK #1 TAB 11/30/21 03/28/23 Rx metoprolol tartrate 25 mg tablet 25 mg PO DAILY Blood pressure 03/30/23 03/28/23 History sennosides 8.6 mg-docusate sodium 2 tab PO BID PRN PRN Constipation 04/04/23 Unknown Rx 50 mg tablet (Stool #0 tabs Softener-Stimulant Laxative) acetaminophen 500 mg tablet 1,000 mg (2 x 500 mg) PO Q8 30 07/26/23 Unknown Rx days #0 tabs albuterol sulfate 90 mcg/actuation 1 puff inhalation Q8H 08/22/23 Unknown History aerosol inhaler carbamazepine 200 mg 200 mg PO Q12H 08/22/23 Unknown History tablet,extended release,12 hr cholecalciferol (vitamin D3) 50 50 mcg PO DAILY 08/22/23 Unknown History mcg (2,000 unit) tablet clonidine HCl 0.1 mg tablet 0.1 mg PO BID 08/22/23 Unknown History guaifenesin 100 mg/5 mL oral liquid 200 mg PO Q4H PRN congestion 08/22/23 Unknown History sertraline 100 mg tablet 100 mg PO DAILY 08/22/23 Unknown History ergocalciferol (vitamin D2) 1,250 1,250 mcg PO Q7D #0 caps 04/10/24 Unknown Rx mcg (50,000 unit) capsule (Vitamin D2) Allergy/AdvReac Type Severity Reaction Status Date / Time No Known Allergies Allergy Verified 04/06/24 11:12 Family History Other Heart disease Surgical History S/P arterial stent History of appendectomy Social History (Updated 08/25/24 @ 18:[address] 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 quit several years ago substance use type: does not use caffeine: Yes Type: coffee Number of servings: 3 ROS Constitutional Constitutional: Reports weakness; Denies anorexia, change in weight, chills, fatigue, fever(s), malaise, night sweats or other Eyes Eyes: Denies blurry vision, change in eye color, change in vision, discharge from eye(s), double vision, erythema, eye pain, loss of vision or other ENT HEENT: Denies abnormal hearing, dysphagia, ear pain, epistaxis, headache(s), hearing loss, nasal congestion, nasal discharge, post nasal drip, sinus pressure, sore throat or other Cardiovascular Cardiovascular: Denies chest pain, claudication, dyspnea on exertion, edema, lightheadedness, orthopnea, palpitations, paroxysmal nocturnal dyspnea, rapid heart rate, syncope or other Respiratory/Chest Respiratory/Chest: Denies cough, dyspnea, excessive phlegm production, hemoptysis, productive cough, shortness of breath at rest, shortness of breath with exertion, wheezing or other Gastrointestinal Gastrointestinal: Reports diarrhea; Denies abdominal pain, coffee ground emesis, constipation, dyspepsia, hematemesis, hematochezia, loose stools, melena, nausea, vomiting or other Genitourinary Genitourinary: Denies burning urination, difficulty urinating, dysuria, hematuria, nocturia, urinary frequency, urinary hesitancy, urinary incontinence, urinary urgency or other Musculoskeletal Musculoskeletal: Denies arthralgias, back pain, joint pain, joint stiffness, joint swelling, myalgias, neck pain or other Neurologic Neurologic: Denies abnormal gait, abnormal speech, confusion, disequilibrium, dizziness, focal weakness, headache(s), numbness, paresthesias, seizure-like activity, seizures, syncope, tingling, tremor(s) or other Psychiatric Psychiatric: Denies anxiety, depression, homicidal ideation, suicidal ideation or other Endocrine Endocrinology: Denies change in body appearance, cold intolerance, excessive sweating, heat intolerance, polydipsia, polyuria or other Hematologic/Lymphatic Hematologic/Lymphatic: Denies anemia, easy bleeding, easy bruising, lymphadenopathy or other Allergic/Immunologic Allergic/Immunologic: Denies rhinitis, hives, eczemia, asthma or other Vital Signs Vital Signs Vital Signs: 08/25/24 16:12 Temperature 97.7 F L Temperature Source Temporal Physical Exam Const alert, no apparent distress, average body habitus and well nourished Constitutional Narrative: Older, white male, sitting up in bed, appears nontoxic and comfortable, oriented to self and place but not time General Appearance: cooperative HEENT normocephalic and head/scalp atraumatic HEENT Narrative: Mild hearing loss, Mallampati 2, no thrush Eyes conjunctivae normal Eyes Narrative: No scleral icterus Resp normal respiratory effort, no retractions, no use of accessory muscles and No clear to auscultation bilaterally Resp Narrative: Scattered end expiratory wheezes Auscultation: wheezes; Negative for rales or rhonchi Cardio regular rate, regular rhythm, S1 normal heart sound, S2 normal heart sound, no murmurs, no rub, no gallops and no clicks GI normal to inspection, nondistended, normoactive bowel sounds, soft to palpation and non-tender Extremity no clubbing, cyanosis or edema Extremity Narrative: Pedal and radial pulses are 2+ Neuro oriented x3 and moves all extremities Neuro Narrative: Significant generalized weakness-proximal greater than distal but no focal deficits Sensorium / Orientation: awake, alert, oriented to person and oriented to place; Negative for oriented to time Speech: speech normal Psych Psych Narrative: Pleasantly confused at this time however has been intermittently agitated Results Lab / Micro Data 08/25/24 16:40 08/25/24 16:40 Labs: Laboratory Results - last 24 hr 08/25/24 16:40: WBC 5.9, RBC 4.52 L, Hgb 14.2, Hct 43.3, MCV 95.8 H, MCH 31.4, MCHC 32.8, RDW Std Deviation 46.6 H, RDW Coeff of Aly 13.2, Plt Count 245, MPV 9.5, Immature Gran % (Auto) 0.300, Neut % (Auto) 78.4 H, Lymph % (Auto) 10.3 L, [place] % (Auto) 9.9, Eos % (Auto) 0.3, Baso % (Auto) 0.8, Absolute Neuts (auto) 4.6, Absolute Lymphs (auto) 0.61 L, Nucleated RBC % 0, Sodium 139, Potassium 3.8, Chloride 102, Carbon Dioxide 24.5, Anion Gap 13, BUN 25 H, Creatinine 1.17, Est GFR (MDRD) Non-Af 65, BUN/Creatinine Ratio 21.4 H, Glucose 98, Calcium 10.0, Total Bilirubin 0.22, AST 26, ALT 32, Alkaline Phosphatase 77, Total Protein 7.7, Albumin 4.5, Globulin 3.2, Albumin/Globulin Ratio 1.4 Imaging Radiology Impression Chest X-Ray 08/25/24 16:19 IMPRESSION: No acute airspace abnormality. Reading [facility] Assessment & Plan Assessment/Plan (1) Acute diarrhea: (2) Weakness: (3) Failure to thrive: QUALIFIERS: Failure to thrive age range: in adult Qualified Code(s): R62.7 - Adult failure to thrive (4) Debility: PLAN: Plan Acute diarrhea -Patient does not appear to be dehydrated -Check enteric panel and C. difficile -Monitor stools -If enteric panel and C. difficile are negative consider Imodium if diarrhea is ongoing Generalized weakness/debility/failure to thrive -Since that family is having difficulty taking care of him in the current living environment -Was recently discharged from [facility] however patient was adamant that he did not want to go back to the same place -? If ECF should be pursued -PT/OT/case management consultation pending COPD -Patient does have some wheezing on presentation but not hypoxic -Will utilize scheduled and as needed nebulizers -If wheezing persistent may need to consider short taper of steroids Osteoporosis -Restart alendronate at discharge -Cont home cholecalciferol Seizure disorder -Continue home carbamazepine CAD/essential hypertension/hyperlipidemia/history of stroke/PAD -Blood pressure is markedly elevated on presentation however it does not appear patient been compliant with his medications -Restart home nifedipine 90 mg daily -Restart home metoprolol 25 mg p.o. daily -restart home losartan 100 mg daily -Restart home clonidine 0.1 mg p.o. twice daily -Restart home Plavix History of atrial fibrillation -Patient is on no current treatment other than beta-joel -Monitor vital signs BPH with obstruction -continue home Flomax -Continue home finasteride GERD -continue PPI Tobacco abuse -14 mcg nicotine patch -Recommend cessation Alzheimer's type dementia -Suspect patient needs more supervision than the currently available home -Monitor for behavior abnormalities and sundowning -May need to consider adding low-dose risperidone if problematic DVT prophylaxis -Subcu Lovenox daily CODE STATUS -Full code but unverified as no one was available to have end-of-life discussion with -Will need clarified Charges/Coding Visit Charges Inpatient E&M: 23853 Init Hosp L2
[2024-08-25] MEDS: hydrALAZINE 20 MG/ML Vial 10 MG IV (18:44)
--- NOTE | 2024-08-25 19:25 | CASEMGMT ---
Social Work: Since the initial phone contact with patient's daughter, Michelle, Michelle called social organization professor back 3 additional times, all with the same information. Each time social organization professor spoke with Michelle, her speech was noted to be extremely rapid. Michelle would not at any point stop talking and required re-direction from social organization professor each and every time. chemical tank worker did get permission from pateint to let Michelle know that he was being admitted which social organization professor did (permission from patient at 19:05, end time social organization professor provided notification over the phone to Michelle was 19:28). Patient's HPOA/ex- and her granddaughter Elba arrived at the hospital just as patient was getting ready to be taken to the acute floor. Giovana started to repeat everything that had already been discussed which social organization professor shared was not needed at this time. It was decided/agreed to allow patient to rest and Giovana stated she will follow up with patient and staff tomorrow. (end time: 19:25) Emilie Pearl, CONSUMER LOAN SPECIALIST, PIECE MEAT TRIMMER
--- NOTE | 2024-08-25 19:55 | NURSING ---
attempted to call ex- and daughter to update med list. patient's ex- didn't answer and his daughters message said she is unreachable.
[2024-08-25] MEDS: Ipratropium/Albuterol Sulfate 3 ML AMPUL.NEB INHALATION (19:56)
[2024-08-25] MEDS: cloNIDine HCl 0.1 MG Tablet PO (20:07)
[2024-08-25] MEDS: Tamsulosin HCl 0.4 MG Capsule PO (20:57)
[2024-08-25] MEDS: Acetaminophen 500 MG Tablet 1000 MG PO (20:57)
[2024-08-25] MEDS: Metoprolol Tartrate 25 MG Tablet PO (20:57)
[2024-08-25] MEDS: Atorvastatin Calcium 40 MG Tablet PO (20:57)
[2024-08-25] MEDS: Mirtazapine 15 MG Tablet PO (20:57)
[2024-08-25] MEDS: carBAMazepine 200 MG Tablet PO (20:58)
[2024-08-25] MEDS: Losartan Potassium 100 MG Tablet PO (20:58)
[2024-08-26] VITALS (9 sets, daily range): BP systolic 137–194; BP diastolic 67–93; PULSE 51–78; RESP 16–18; TEMP 36.4–36.6; O2SAT 92–95; BMI 22.6
[2024-08-26] MEDS: Menthol/Lanolin/Calamine/Znox 113 GM Tube 1 APPLIC TOPICAL ×2 (04:21→22:19)
[2024-08-26] MEDS: hydrALAZINE 20 MG/ML Vial 10 MG IV (04:27)
[2024-08-26] MEDS: 0.9% Saline Lock 10 ML Syringe IV (04:29)
[2024-08-26] MEDS: Acetaminophen 500 MG Tablet 1000 MG PO ×3 (05:26→22:23)
[2024-08-26 06:59] LABS: Absolute Lymphocyte Count 0.94 X10^3/uL (0.83-4.51); Absolute Neutrophil Count 2.9 X10^3/uL (2.0-7.7); Basophil# 0.05 X10^3/uL; Basophil% 1.1 % (0-1); Eosinophil# 0.16 X10^3/uL; Eosinophils% 3.4 % (0-5); Hematocrit 40.6 % (40-54); Hemoglobin 13.3 g/dL (13.0-16.5); Lymphocyte # 0.94 X10^3/ul (0.83-4.51); Lymphocyte % 19.8 % (19-41); Mean Corp Hgb Conc 32.8 g/dL (32-36); Mean Corpuscular Hgb 31.2 pg (27.0-32.0); Mean Corpuscular Volume 95.3 fL (80-94); Mean Platelet Vol. 9.9 fl (6.2-12.0); Monocyte# 0.72 X10^3/uL; Monocyte% 15.2 % (0-10); NRBC Flagged by Analyzer 0 % (0-5); Neutrophil # 2.86 X10^3/uL (2.7-7.7); Neutrophil % 60.3 % (47-70); Platelet Count 242 K/mm3 (150-450); RBC Distribution Width CV 13.3 % (11.6-14.6); RBC Distribution Width SD 46.7 fl (35.1-43.9); Red Blood Count 4.26 M/mm3 (4.6-6.2); White Blood Count 4.7 K/mm3 (4.4-11.0)
[2024-08-26] MEDS: Ipratropium/Albuterol Sulfate 3 ML AMPUL.NEB INHALATION ×2 (07:04→13:53)
[2024-08-26 08:50] LABS: ALB/GLOB Ratio 1.4 RATIO (0.9-2.4); AST(SGOT) 23 U/L (<=37); Alanine Aminotransfer ALT/SGPT 28 U/L (<=46); Alkaline Phosphatase 67 U/L (40-129); Anion Gap 16 (5-15); BUN 23 mg/dL (4-19); BUN/Creat Ratio 21.8 RATIO (10-20); Calcium,Total 9.4 mg/dL (7.6-11.0); Carbon Dioxide 17.6 mmol/L (21.0-32.0); Chloride 105 mmol/L (98-108); Creatinine, Serum 1.04 mg/dL (0.70-1.20); EST Glomerular Filtration Rate 75 (>60); Estimated Creatinine Clearance 58.77 ml/min (50-250); Globulin 2.9 g/dL (2.2-4.2); Glucose 88 mg/dL (70-99); Magnesium 1.9 mg/dL (1.5-2.2); Phosphorus 3.1 mg/dL (2.7-4.5); Potassium 3.6 mmol/L (3.3-5.1); Protein, Total 6.9 g/dL (5.9-8.4); Sodium Level 139 mmol/L (133-145); Total Bilirubin 0.25 mg/dL (0.00-1.30)
--- NOTE | 2024-08-26 09:07 | PCM.PN.HOSP ---
Reason for Visit Reason for Visit: Diagnoses Diarrhea, unspecified (08/25/24) Weakness (08/25/24) Other malaise (08/25/24) Adult failure to thrive (08/25/24) Subjective Subjective Patient evaluated at bedside, reports he is having a lot of gas and feels like he is going to have a bowel movement, no diarrhea or vomiting, denies any shortness of breath Objective Data Objective Data Vital Signs: Vital Signs Temp Pulse Resp BP Pulse Ox O2 Del Method O2 Flow Rate 97.8 F 77 16 148/72 H 93 Nasal Cannula 2 08/26/24 07:35 08/26/24 07:35 08/26/24 07:35 08/26/24 07:35 08/26/24 07:35 08/26/24 07:38 08/26/24 07:38 Oxygen Flow Rate (L/min) 2 Oxygen Delivery Method Nasal Cannula Weight: 67.7 kg Body Mass Index (BMI) 22.6 Intake & Output: Intake and Output for Last 24 Hours 08/24/24 08/26/24 08/26/24 23:59 00:59 23:59 Intake Total 1000 / 1000 300 / 300 Output Total 400 / 400 300 / 300 Balance 600 / 600 0 / 0 Lab / Micro Data 08/26/24 06:10 08/26/24 06:10 Labs: Laboratory Results - last 24 hr 08/25/24 16:40: WBC 5.9, RBC 4.52 L, Hgb 14.2, Hct 43.3, MCV 95.8 H, MCH 31.4, MCHC 32.8, RDW Std Deviation 46.6 H, RDW Coeff of Aly 13.2, Plt Count 245, MPV 9.5, Immature Gran % (Auto) 0.300, Neut % (Auto) 78.4 H, Lymph % (Auto) 10.3 L, [place] % (Auto) 9.9, Eos % (Auto) 0.3, Baso % (Auto) 0.8, Absolute Neuts (auto) 4.6, Absolute Lymphs (auto) 0.61 L, Nucleated RBC % 0, Sodium 139, Potassium 3.8, Chloride 102, Carbon Dioxide 24.5, Anion Gap 13, BUN 25 H, Creatinine 1.17, Est GFR (MDRD) Non-Af 65, BUN/Creatinine Ratio 21.4 H, Glucose 98, Calcium 10.0, Total Bilirubin 0.22, AST 26, ALT 32, Alkaline Phosphatase 77, Total Protein 7.7, Albumin 4.5, Globulin 3.2, Albumin/Globulin Ratio 1.4 08/26/24 06:10: WBC 4.7, RBC 4.26 L, Hgb 13.3, Hct 40.6, MCV 95.3 H, MCH 31.2, MCHC 32.8, RDW Std Deviation 46.7 H, RDW Coeff of Aly 13.3, Plt Count 242, MPV 9.9, Immature Gran % (Auto) 0.200, Neut % (Auto) 60.3, Lymph % (Auto) 19.8, [place] % (Auto) 15.2 H, Eos % (Auto) 3.4, Baso % (Auto) 1.1 H, Absolute Neuts (auto) 2.9, Absolute Lymphs (auto) 0.94, Nucleated RBC % 0, Sodium 139, Potassium 3.6, Chloride 105, Carbon Dioxide 17.6 L, Anion Gap 16 H, BUN 23 H, Creatinine 1.04, Estim Creat Clear Calc 58.77, Est GFR (MDRD) Non-Af 75, BUN/Creatinine Ratio 21.8 H, Glucose 88, Calcium 9.4, Phosphorus 3.1, Magnesium 1.9, Total Bilirubin 0.25, AST 23, ALT 28, Alkaline Phosphatase 67, Total Protein 6.9, Albumin 4.0, Globulin 2.9, Albumin/Globulin Ratio 1.4 Radiography Diagnostic Testing: Radiology Impression Chest X-Ray 08/25/24 16:19 IMPRESSION: No acute airspace abnormality. Reading Location: [facility] Physical Exam Narrative General: Alert, no apparent distress HEENT: Atraumatic Eyes: Anicteric, Neck: Supple Respiratory: Clear to auscultation bilaterally, normal respiratory effort Cardiovascular: Regular rate GI: Soft, nontender, nondistended Extremities: No edema Musculoskeletal: Moving all extremities Neuro: No overt focal neurological deficits Skin: No rashes appreciated Psych: Cooperative Assessment & Plan Assessment/Plan (1) Weakness: (2) Acute diarrhea: PLAN: Plan # Generalized weakness/debility/failure to thrive -Patient recently had been at [facility] and was discharged 08/20/2024 but has been having diarrhea since that time -May be due to diarrhea but cannot say definitively, checking UA -PT/OT # Diarrhea -Unclear etiology -Stool studies ordered -Respiratory panel ordered and is negative # Acute hypoxia -Unclear etiology -Patient 88% on room air now requiring 2 L of O2 -Chest x-ray with no acute abnormality -COVID and influenza negative, no tachycardia, tachypnea, shortness of breath or other indication that patient may have PE, it is possible there is component of atelectasis, incentive spirometer -Patient on nebs -No wheezing or other indication for IV steroids or that patient is having COPD exacerbation # Patient with noted history of COPD -Continue nebs #HX CAD/PAD/CVA -Continue home beta-joel and Plavix and statin # History of seizure disorder -Patient on Tegretol #Hypertension -Continue clonidine, metoprolol, nifedipine, losartan #Chronic BPH with obstruction -Continue home medications #Tobacco use -Advise cessation -Nicotine replacement available if desired #Depression/anxiety -Continue home medications #GERD -Continue PPI #DVT ppx: Lovenox subcu Celia Toribio MD Charges/Coding Visit Charges Inpatient E&M: 71048 Subs Hosp L2
[2024-08-26] MEDS: cloNIDine HCl 0.1 MG Tablet PO ×2 (09:59→22:29)
[2024-08-26] MEDS: Sertraline 100 MG Tablet PO (10:00)
[2024-08-26] MEDS: Clopidogrel Bisulfate 75 MG Tablet PO (10:00)
[2024-08-26] MEDS: carBAMazepine 200 MG Tablet PO ×2 (10:00→22:29)
[2024-08-26] MEDS: Pantoprazole Sodium 40 MG Tablet PO (10:00)
[2024-08-26] MEDS: Finasteride 5 MG Tablet PO (10:00)
[2024-08-26] MEDS: NIFEdipine 90 MG Tablet PO (10:00)
[2024-08-26] MEDS: Enoxaparin 40 MG/0.4 ML Syringe SC (10:01)
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
[2024-08-26] MEDS: Metoprolol Tartrate 25 MG Tablet PO (10:32)
[2024-08-26 11:22] LABS: Lactic Acid 1.1 mmol/L (0.0-2.0)
[2024-08-26] MEDS: Ergocalciferol 1.25 MG (50, 000 UNIT) Capsule PO (11:54)
[2024-08-26] MEDS: Losartan Potassium 100 MG Tablet PO (11:54)
--- NOTE | 2024-08-26 16:33 | CASEMGMT ---
Met with patient to complete BOYD form. Pt was upset and would not sign. Attempted to call pts xwife twice with no answer. Original form placed in pt?s chart and copy placed in pts room. Jacquie Michaud, Discharge Planning Asst
[2024-08-26] MEDS: Atorvastatin Calcium 40 MG Tablet PO (22:29)
[2024-08-26] MEDS: Mirtazapine 15 MG Tablet PO (22:29)
[2024-08-26] MEDS: Tamsulosin HCl 0.4 MG Capsule PO (22:29)
[2024-08-27] VITALS (9 sets, daily range): BP systolic 117–163; BP diastolic 65–76; PULSE 64–94; RESP 16–18; TEMP 36.4–37; O2SAT 87–97; BMI 22.8
[2024-08-27] MEDS: Acetaminophen 500 MG Tablet 1000 MG PO ×3 (06:19→20:16)
[2024-08-27 06:56] LABS: Absolute Lymphocyte Count 0.95 X10^3/uL (0.83-4.51); Absolute Neutrophil Count 2.3 X10^3/uL (2.0-7.7); Basophil# 0.05 X10^3/uL; Basophil% 1.2 % (0-1); Eosinophil# 0.26 X10^3/uL; Eosinophils% 6.3 % (0-5); Hematocrit 38.4 % (40-54); Hemoglobin 12.8 g/dL (13.0-16.5); Lymphocyte # 0.95 X10^3/ul (0.83-4.51); Mean Corp Hgb Conc 33.3 g/dL (32-36); Mean Corpuscular Hgb 31.4 pg (27.0-32.0); Mean Corpuscular Volume 94.3 fL (80-94); Monocyte# 0.54 X10^3/uL; Monocyte% 13.1 % (0-10); NRBC Flagged by Analyzer 0 % (0-5); Neutrophil # 2.32 X10^3/uL (2.7-7.7); Neutrophil % 56.2 % (47-70); Platelet Count 253 K/mm3 (150-450); RBC Distribution Width CV 13.3 % (11.6-14.6); RBC Distribution Width SD 46.1 fl (35.1-43.9); Red Blood Count 4.07 M/mm3 (4.6-6.2); White Blood Count 4.1 K/mm3 (4.4-11.0)
[2024-08-27] MEDS: Ipratropium/Albuterol Sulfate 3 ML AMPUL.NEB INHALATION ×3 (07:20→19:22)
[2024-08-27 08:05] LABS: Anion Gap 14 (5-15); BUN 20 mg/dL (4-19); BUN/Creat Ratio 17.2 RATIO (10-20); Calcium,Total 9.5 mg/dL (7.6-11.0); Carbon Dioxide 19.9 mmol/L (21.0-32.0); Chloride 104 mmol/L (98-108); Creatinine, Serum 1.18 mg/dL (0.70-1.20); EST Glomerular Filtration Rate 64 (>60); Estimated Creatinine Clearance 52.25 ml/min (50-250); Glucose 97 mg/dL (70-99); Potassium 3.4 mmol/L (3.3-5.1); Sodium Level 139 mmol/L (133-145)
[2024-08-27] MEDS: Menthol/Lanolin/Calamine/Znox 113 GM Tube 1 APPLIC TOPICAL ×2 (08:07→20:16)
[2024-08-27] MEDS: cloNIDine HCl 0.1 MG Tablet PO ×2 (08:07→20:14)
[2024-08-27] MEDS: Losartan Potassium 100 MG Tablet PO (08:07)
[2024-08-27] MEDS: carBAMazepine 200 MG Tablet PO ×2 (08:08→20:15)
[2024-08-27] MEDS: Pantoprazole Sodium 40 MG Tablet PO (08:11)
[2024-08-27] MEDS: Metoprolol Tartrate 25 MG Tablet PO (08:15)
[2024-08-27] MEDS: Enoxaparin 40 MG/0.4 ML Syringe SC (08:15)
[2024-08-27] MEDS: Clopidogrel Bisulfate 75 MG Tablet PO (08:15)
[2024-08-27] MEDS: Finasteride 5 MG Tablet PO (08:15)
--- NOTE | 2024-08-27 08:31 | PCM.PN.HOSP ---
Reason for Visit Reason for Visit: Diagnoses Diarrhea, unspecified (08/25/24) Weakness (08/25/24) Other malaise (08/25/24) Adult failure to thrive (08/25/24) Subjective Subjective Patient sitting in bed, reports some suprapubic tenderness, some chronic shortness of breath and chronic cough, has chronic pain in legs as well, had small bowel movement earlier, aside from the suprapubic discomfort for 1 day he denies any other acute complaints Objective Data Objective Data Vital Signs: Vital Signs Temp Pulse Resp BP Pulse Ox O2 Del Method O2 Flow Rate 97.5 F L 64 18 163/76 H 91 Nasal Cannula 2 08/27/24 08:00 08/27/24 08:15 08/27/24 08:00 08/27/24 08:00 08/27/24 08:00 08/27/24 08:00 08/27/24 08:00 Oxygen Flow Rate (L/min) 2 Oxygen Delivery Method Nasal Cannula Weight: 68.3 kg Body Mass Index (BMI) 22.8 Intake & Output: Intake and Output for Last 24 Hours 08/26/24 08/26/24 08/27/24 00:59 23:59 23:59 Intake Total 1000 / 1000 300 / 300 Output Total 400 / 400 300 / 800 800 / 800 Balance 600 / 600 0 / -500 -800 / -800 Lab / Micro Data 08/27/24 06:01 08/27/24 06:01 Labs: Laboratory Results - last 24 hr 08/26/24 06:10: Sodium 139, Potassium 3.6, Chloride 105, Carbon Dioxide 17.6 L, Anion Gap 16 H, BUN 23 H, Creatinine 1.04, Estim Creat Clear Calc 58.77, Est GFR (MDRD) Non-Af 75, BUN/Creatinine Ratio 21.8 H, Glucose 88, Calcium 9.4, Phosphorus 3.1, Magnesium 1.9, Total Bilirubin 0.25, AST 23, ALT 28, Alkaline Phosphatase 67, Total Protein 6.9, Albumin 4.0, Globulin 2.9, Albumin/Globulin Ratio 1.4 08/26/24 09:19: Lactic Acid 1.1 08/27/24 06:01: WBC 4.1 L, RBC 4.07 L, Hgb 12.8 L, Hct 38.4 L, MCV 94.3 H, MCH 31.4, MCHC 33.3, RDW Std Deviation 46.1 H, RDW Coeff of Aly 13.3, Plt Count 253, MPV 10.0, Immature Gran % (Auto) 0.200, Neut % (Auto) 56.2, Lymph % (Auto) 23.0, [place] % (Auto) 13.1 H, Eos % (Auto) 6.3 H, Baso % (Auto) 1.2 H, Absolute Neuts (auto) 2.3, Absolute Lymphs (auto) 0.95, Nucleated RBC % 0, Sodium 139, Potassium 3.4, Chloride 104, Carbon Dioxide 19.9 L, Anion Gap 14, BUN 20 H, Creatinine 1.18, Estim Creat Clear Calc 52.25, Est GFR (MDRD) Non-Af 64, BUN/Creatinine Ratio 17.2, Glucose 97, Calcium 9.5 Micro: Microbiology 08/26/24 10:09 Mucosa - Nasopharyngeal Respiratory Panel (PCR) - Final 08/26/24 10:20 Nasal Secretion SARS-CoV-2 Antigen (Rapid) - Final Physical Exam Narrative General: Alert, no apparent distress HEENT: Atraumatic Eyes: Anicteric, Neck: Supple Respiratory: Clear to auscultation bilaterally, normal respiratory effort Cardiovascular: Regular rate GI: Soft, nondistended, reportedly little bit of tenderness palpation lower quadrants however when palpating with stethoscope did not seem to have any pain or distress Extremities: No edema Musculoskeletal: Moving all extremities Neuro: No overt focal neurological deficits Skin: No rashes appreciated Psych: Overall cooperative Assessment & Plan Assessment/Plan (1) Weakness: (2) Acute diarrhea: PLAN: Plan # Generalized weakness/debility/failure to thrive -Patient recently had been at [facility] and was discharged 08/20/2024 but has been having diarrhea since that time -May be due to diarrhea but cannot say definitively, checking UA -PT/OT -08/27: UA ordered, yet to be collected, will follow-up, continue to work with physical therapy, case management social work following # Diarrhea -Unclear etiology -Stool studies ordered -Respiratory panel ordered and is negative -08/27: Has not had any significant diarrhea, had 1 formed bowel movement earlier today, diarrhea resolved # Hypoxia, patient supposed to be on 3 L as needed at home -Patient 88% on room air now requiring 2 L of O2 -Chest x-ray with no acute abnormality -COVID and influenza negative, no tachycardia, tachypnea, shortness of breath or other indication that patient may have PE, it is possible there is component of atelectasis, incentive spirometer -Patient on nebs -No wheezing or other indication for IV steroids or that patient is having COPD exacerbation -08/27: Patient on nebs, per documentation he is supposed to be on 3 L as needed for his COPD, do not think there is an acute superimposed process at this time. He reports his breathing is at baseline, may just need to assess for updated O2 requirements on discharge # Anemia -08/27: Hemoglobin 12.8, was 14.2 on presentation, no noted ongoing blood loss but will check FOBT. Will also repeat in this afternoon to verify no further drop. Will continue Plavix for now given no vital instability or overt bleeding low threshold to hold if needed. Will change Lovenox to SCDs Chronic medical problems: # Patient with noted history of COPD -Continue nebs #HX CAD/PAD/CVA -Continue home beta-joel and Plavix and statin # History of seizure disorder -Patient on Tegretol #Hypertension -Continue clonidine, metoprolol, nifedipine, losartan #Chronic BPH with obstruction -Continue home medications #Tobacco use -Advise cessation -Nicotine replacement available if desired #Depression/anxiety -Continue home medications #GERD -Continue PPI #DVT ppx: SCDs Celia Toribio MD Time spent in the patient's overall evaluation,decision-making process, review of diagnostic data, adjustment of management, discussion with other providers, nursing nursing and ancillary staff involved in patient's care documentation, 36 minutes Charges/Coding Visit Charges Inpatient E&M: 47118 Subs Hosp L2
[2024-08-27] MEDS: Sertraline 100 MG Tablet PO (09:49)
[2024-08-27] MEDS: NIFEdipine 90 MG Tablet PO (09:49)
[2024-08-27 12:35] LABS: Mucous, Urine 0 SEEN /hpf (<or=2+)
[2024-08-27 12:45] LABS: Color, Urine Yellow (Yellow); Glucose, Dipstick Normal (Normal); Ketone-Dipstick Negative (Negative); Leukocyte Esterase-Dipstick 500 /ul (Negative); Nitrite-Dipstick Positive (Negative); Occult Blood-Urine Negative /ul (Negative); Protein-Dipstick 30 mg/dl (Negative); Specific Gravity, Urine 1.015 (1.002-1.030); Urine Bilirubin Dipstick Negative (Negative); Urine Clarity Clear (Clear); Urine Urobilinogen Normal (Normal)
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
[2024-08-27 13:26] LABS: Bacteria 4+ /hpf (None Seen); Red Blood Cells-Urine 0 SEEN /hpf (0-5); Squamous Epithelial Cells - UA 0-5 SEEN /hpf (0-5); White Blood Cells 25-50 SEEN /hpf (0-5)
--- NOTE | 2024-08-27 13:32 | PCM.HOSP.N ---
Hospitalist Note UA abnormal and is suggestive of UTI and given this and patient suprapubic tenderness we will start patient on Rocephin and await urine culture
[2024-08-27 14:04] LABS: Hematocrit 40.6 % (40-54); Hemoglobin 13.5 g/dL (13.0-16.5); Mean Corp Hgb Conc 33.3 g/dL (32-36); Mean Corpuscular Hgb 31.5 pg (27.0-32.0); Mean Corpuscular Volume 94.6 fL (80-94); Mean Platelet Vol. 9.8 fl (6.2-12.0); Platelet Count 283 K/mm3 (150-450); RBC Distribution Width CV 13.4 % (11.6-14.6); Red Blood Count 4.29 M/mm3 (4.6-6.2); White Blood Count 4.9 K/mm3 (4.4-11.0)
[2024-08-27] MEDS: 0.9% Normal Saline (100mL Bag) 100 ML 15 ML IV (14:06)
[2024-08-27] MEDS: 0.9% Saline Lock 10 ML Syringe IV (14:06)
[2024-08-27] MEDS: Ceftriaxone 1 GM/50 ML BAG IV (14:06)
--- NOTE | 2024-08-27 16:13 | PCM.HOSP.N ---
Hospitalist Note Repeat hemoglobin actually improved, suspect that this was then margin of bladder, will DC FOBT
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
--- NOTE | 2024-08-27 16:33 | CASEMGMT ---
Discharge Planning Referral sent to [facility]. Jacquie Michaud DC Planning Asst.
[2024-08-27] MEDS: Tamsulosin HCl 0.4 MG Capsule PO (20:14)
[2024-08-27] MEDS: Atorvastatin Calcium 40 MG Tablet PO (20:15)
[2024-08-27] MEDS: Mirtazapine 15 MG Tablet PO (20:15)
[2024-08-28] VITALS (9 sets, daily range): BP systolic 138–172; BP diastolic 58–68; PULSE 60–79; RESP 16–18; TEMP 36.4–36.8; O2SAT 92–96; BMI 23.9
[2024-08-28] MEDS: Acetaminophen 500 MG Tablet 1000 MG PO ×3 (06:22→20:59)
[2024-08-28 07:17] LABS: Absolute Lymphocyte Count 1.06 X10^3/uL (0.83-4.51); Absolute Neutrophil Count 2.5 X10^3/uL (2.0-7.7); Basophil# 0.08 X10^3/uL; Basophil% 1.8 % (0-1); Eosinophil# 0.34 X10^3/uL; Eosinophils% 7.5 % (0-5); Hemoglobin 12.8 g/dL (13.0-16.5); Lymphocyte # 1.06 X10^3/ul (0.83-4.51); Lymphocyte % 23.4 % (19-41); Mean Corp Hgb Conc 32.8 g/dL (32-36); Mean Corpuscular Hgb 31.1 pg (27.0-32.0); Mean Corpuscular Volume 94.7 fL (80-94); Mean Platelet Vol. 9.8 fl (6.2-12.0); Monocyte# 0.51 X10^3/uL; Monocyte% 11.3 % (0-10); NRBC Flagged by Analyzer 0 % (0-5); Neutrophil # 2.52 X10^3/uL (2.7-7.7); Neutrophil % 55.6 % (47-70); Platelet Count 279 K/mm3 (150-450); RBC Distribution Width CV 13.3 % (11.6-14.6); RBC Distribution Width SD 46.1 fl (35.1-43.9); Red Blood Count 4.12 M/mm3 (4.6-6.2); White Blood Count 4.5 K/mm3 (4.4-11.0)
[2024-08-28] MEDS: Ipratropium/Albuterol Sulfate 3 ML AMPUL.NEB INHALATION ×3 (07:39→20:40)
[2024-08-28 08:15] LABS: Anion Gap 13 (5-15); BUN 25 mg/dL (4-19); BUN/Creat Ratio 21.6 RATIO (10-20); Calcium,Total 9.8 mg/dL (7.6-11.0); Carbon Dioxide 21.9 mmol/L (21.0-32.0); Chloride 105 mmol/L (98-108); Creatinine, Serum 1.14 mg/dL (0.70-1.20); EST Glomerular Filtration Rate 67 (>60); Estimated Creatinine Clearance 54.17 ml/min (50-250); Glucose 93 mg/dL (70-99); Potassium 3.8 mmol/L (3.3-5.1); Sodium Level 140 mmol/L (133-145)
[2024-08-28] MEDS: Metoprolol Tartrate 25 MG Tablet PO (09:35)
[2024-08-28] MEDS: cloNIDine HCl 0.1 MG Tablet PO ×2 (09:35→20:58)
[2024-08-28] MEDS: Losartan Potassium 100 MG Tablet PO (09:35)
[2024-08-28] MEDS: Menthol/Lanolin/Calamine/Znox 113 GM Tube 1 APPLIC TOPICAL ×2 (09:35→20:59)
[2024-08-28] MEDS: Clopidogrel Bisulfate 75 MG Tablet PO (09:35)
[2024-08-28] MEDS: Sertraline 100 MG Tablet PO (09:36)
[2024-08-28] MEDS: Ceftriaxone 1 GM/50 ML BAG IV (09:36)
[2024-08-28] MEDS: Pantoprazole Sodium 40 MG Tablet PO (09:36)
[2024-08-28] MEDS: carBAMazepine 200 MG Tablet PO ×2 (09:36→20:58)
[2024-08-28] MEDS: Finasteride 5 MG Tablet PO (09:36)
[2024-08-28] MEDS: NIFEdipine 90 MG Tablet PO (09:36)
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
--- NOTE | 2024-08-28 10:57 | CASEMGMT ---
Addendum entered by Jacquie Michaud 08/29/24 08:52: [facility] has declined d/t unpaid balance at previous snf. SW updated. Jacquie Michaud DC Planning Asst. Original Note: Discharge Planning Referral sent to [facility]. Jacquie Michaud DC Planning Asst.
--- NOTE | 2024-08-28 14:58 | PCM.PN.HOSP ---
Reason for Visit Reason for Visit: Diagnoses Diarrhea, unspecified (08/27/24) Weakness (08/27/24) Other malaise (08/27/24) Adult failure to thrive (08/27/24) Subjective Subjective Still reports a little bit of stomach upset. Denies any vomiting, not having any further diarrhea, no changes in his breathing Objective Data Objective Data Vital Signs: Vital Signs Temp Pulse Resp BP Pulse Ox O2 Del Method O2 Flow Rate 97.7 F L 60 18 138/61 H 96 Nasal Cannula 2 08/28/24 13:58 08/28/24 13:58 08/28/24 13:58 08/28/24 13:58 08/28/24 13:58 08/28/24 14:00 08/28/24 14:00 Oxygen Flow Rate (L/min) 2 Oxygen Delivery Method Nasal Cannula Weight: 71.6 kg Body Mass Index (BMI) 23.9 Intake & Output: Intake and Output for Last 24 Hours 08/26/24 08/27/24 08/28/24 23:59 23:59 23:59 Intake Total 300 / 300 150 / 150 50 / 50 Output Total 300 / 800 800 / 800 300 / 300 Balance 0 / -500 -650 / -650 -250 / -250 Lab / Micro Data 08/28/24 06:30 08/28/24 06:30 Labs: Laboratory Results - last 24 hr 08/28/24 06:30: WBC 4.5, RBC 4.12 L, Hgb 12.8 L, Hct 39.0 L, MCV 94.7 H, MCH 31.1, MCHC 32.8, RDW Std Deviation 46.1 H, RDW Coeff of Aly 13.3, Plt Count 279, MPV 9.8, Immature Gran % (Auto) 0.400, Neut % (Auto) 55.6, Lymph % (Auto) 23.4, [place] % (Auto) 11.3 H, Eos % (Auto) 7.5 H, Baso % (Auto) 1.8 H, Absolute Neuts (auto) 2.5, Absolute Lymphs (auto) 1.06, Nucleated RBC % 0, Sodium 140, Potassium 3.8, Chloride 105, Carbon Dioxide 21.9, Anion Gap 13, BUN 25 H, Creatinine 1.14, Estim Creat Clear Calc 54.17, Est GFR (MDRD) Non-Af 67, BUN/Creatinine Ratio 21.6 H, Glucose 93, Calcium 9.8 Micro: Microbiology 08/27/24 12:25 Urine, Clean Catch Urine Culture - Preliminary Presumptive E. coli Gram negative holly 08/26/24 10:09 Mucosa - Nasopharyngeal Respiratory Panel (PCR) - Final 08/26/24 10:20 Nasal Secretion SARS-CoV-2 Antigen (Rapid) - Final Physical Exam Narrative General: Alert, no apparent distress HEENT: Atraumatic Eyes: Anicteric, Neck: Supple Respiratory: Clear to auscultation bilaterally, normal respiratory effort Cardiovascular: Regular rate GI: Soft, nondistended, does not seem to be tender to palpation no rebound, guarding, rigidity Extremities: No edema Musculoskeletal: Moving all extremities Neuro: No overt focal neurological deficits Skin: No rashes appreciated Psych: Overall cooperative Assessment & Plan Assessment/Plan (1) Weakness: (2) Acute diarrhea: PLAN: Plan # Generalized weakness/debility/failure to thrive -Patient recently had been at [facility] and was discharged 08/20/2024 but has been having diarrhea since that time -May be due to diarrhea but cannot say definitively, checking UA -PT/OT -08/27: UA ordered, yet to be collected, will follow-up, continue to work with physical therapy, case management social work following -08/28: Patient now agreeable to placement, placement avenues been pursued # Urinary tract infection -08/28: UA suggestive of UTI and urine culture positive for gram-negative rods, awaiting culture and sensitivity data, this may have contributed to some of patient's symptoms, patient will still benefit from placement # Diarrhea?resolved -Unclear etiology -Stool studies ordered -Respiratory panel ordered and is negative -08/27: Has not had any significant diarrhea, had 1 formed bowel movement earlier today, diarrhea resolved # Hypoxia, patient supposed to be on 3 L as needed at home -Patient 88% on room air now requiring 2 L of O2 -Chest x-ray with no acute abnormality -COVID and influenza negative, no tachycardia, tachypnea, shortness of breath or other indication that patient may have PE, it is possible there is component of atelectasis, incentive spirometer -Patient on nebs -No wheezing or other indication for IV steroids or that patient is having COPD exacerbation -08/27: Patient on nebs, per documentation he is supposed to be on 3 L as needed for his COPD, do not think there is an acute superimposed process at this time. He reports his breathing is at baseline, may just need to assess for updated O2 requirements on discharge -08/28: On every evaluation patient has his oxygen off and reports his breathing is at baseline # Anemia -08/27: Hemoglobin 12.8, was 14.2 on presentation, no noted ongoing blood loss but will check FOBT. Will also repeat in this afternoon to verify no further drop. Will continue Plavix for now given no vital instability or overt bleeding low threshold to hold if needed. Will change Lovenox to SCDs -08/28: Hemoglobin overall stable, no further workup at this time Chronic medical problems: # Patient with noted history of COPD -Continue nebs #HX CAD/PAD/CVA -Continue home beta-joel and Plavix and statin # History of seizure disorder -Patient on Tegretol #Hypertension -Continue clonidine, metoprolol, nifedipine, losartan #Chronic BPH with obstruction -Continue home medications #Tobacco use -Advise cessation -Nicotine replacement available if desired #Depression/anxiety -Continue home medications #GERD -Continue PPI #DVT ppx: SCDs Celia Toribio MD Time spent in the patient's overall evaluation,decision-making process, review of diagnostic data, adjustment of management, discussion with other providers, nursing nursing and ancillary staff involved in patient's care documentation, 35 minutes Charges/Coding Visit Charges Inpatient E&M: 90527 Subs Hosp L2
[2024-08-28] MEDS: Mirtazapine 15 MG Tablet PO (20:58)
[2024-08-28] MEDS: Atorvastatin Calcium 40 MG Tablet PO (20:58)
[2024-08-28] MEDS: Tamsulosin HCl 0.4 MG Capsule PO (20:58)
[2024-08-29] VITALS (7 sets, daily range): BP systolic 145–169; BP diastolic 46–93; PULSE 56–71; RESP 18–20; TEMP 36.3–36.6; O2SAT 90–93; BMI 23.0
[2024-08-29] MEDS: Acetaminophen 500 MG Tablet 1000 MG PO ×3 (05:27→21:39)
[2024-08-29 06:48] LABS: Absolute Lymphocyte Count 1.17 X10^3/uL (0.83-4.51); Absolute Neutrophil Count 3.1 X10^3/uL (2.0-7.7); Basophil# 0.07 X10^3/uL; Basophil% 1.3 % (0-1); Eosinophil# 0.43 X10^3/uL; Eosinophils% 8.2 % (0-5); Hematocrit 39.2 % (40-54); Hemoglobin 12.8 g/dL (13.0-16.5); Lymphocyte # 1.17 X10^3/ul (0.83-4.51); Lymphocyte % 22.3 % (19-41); Mean Corp Hgb Conc 32.7 g/dL (32-36); Mean Corpuscular Hgb 31.4 pg (27.0-32.0); Mean Corpuscular Volume 96.1 fL (80-94); Mean Platelet Vol. 9.8 fl (6.2-12.0); Monocyte# 0.42 X10^3/uL; NRBC Flagged by Analyzer 0 % (0-5); Neutrophil # 3.14 X10^3/uL (2.7-7.7); Neutrophil % 59.8 % (47-70); Platelet Count 277 K/mm3 (150-450); RBC Distribution Width CV 13.5 % (11.6-14.6); RBC Distribution Width SD 47.8 fl (35.1-43.9); Red Blood Count 4.08 M/mm3 (4.6-6.2); White Blood Count 5.3 K/mm3 (4.4-11.0)
--- NOTE | 2024-08-29 08:05 | PCM.PN.HOSP ---
Reason for Visit Reason for Visit: Diagnoses Diarrhea, unspecified (08/27/24) Weakness (08/27/24) Other malaise (08/27/24) Adult failure to thrive (08/27/24) Subjective Subjective Patient resting in bed, reports he feels a little bit unwell overall still with a little bit of stomach upset but still feeling better than he did on arrival Objective Data Objective Data Vital Signs: Vital Signs Temp Pulse Resp BP Pulse Ox O2 Del Method O2 Flow Rate 97.9 F 61 18 145/46 H 92 Room Air 2 08/29/24 04:25 08/29/24 04:25 08/29/24 04:25 08/29/24 04:25 08/29/24 04:25 08/29/24 04:08/28/24 21:01 Oxygen Flow Rate (L/min) 2 Oxygen Delivery Method Room Air Weight: 69 kg Body Mass Index (BMI) 23.0 Intake & Output: Intake and Output for Last 24 Hours 08/27/24 08/28/24 08/29/24 23:59 23:59 23:59 Intake Total 150 / 150 325 / 325 450 / 450 Output Total 800 / 800 950 / 950 725 / 725 Balance -650 / -650 -625 / -625 -275 / -275 Lab / Micro Data 08/29/24 06:04 08/29/24 06:04 Labs: Laboratory Results - last 24 hr 08/28/24 06:30: Sodium 140, Potassium 3.8, Chloride 105, Carbon Dioxide 21.9, Anion Gap 13, BUN 25 H, Creatinine 1.14, Estim Creat Clear Calc 54.17, Est GFR (MDRD) Non-Af 67, BUN/Creatinine Ratio 21.6 H, Glucose 93, Calcium 9.8 08/29/24 06:04: WBC 5.3, RBC 4.08 L, Hgb 12.8 L, Hct 39.2 L, MCV 96.1 H, MCH 31.4, MCHC 32.7, RDW Std Deviation 47.8 H, RDW Coeff of Aly 13.5, Plt Count 277, MPV 9.8, Immature Gran % (Auto) 0.400, Neut % (Auto) 59.8, Lymph % (Auto) 22.3, [place] % (Auto) 8.0, Eos % (Auto) 8.2 H, Baso % (Auto) 1.3 H, Absolute Neuts (auto) 3.1, Absolute Lymphs (auto) 1.17, Nucleated RBC % 0 Micro: Microbiology 08/27/24 12:25 Urine, Clean Catch Urine Culture - Preliminary Presumptive E. coli Gram negative holly 08/26/24 10:09 Mucosa - Nasopharyngeal Respiratory Panel (PCR) - Final 08/26/24 10:20 Nasal Secretion SARS-CoV-2 Antigen (Rapid) - Final Physical Exam Narrative General: Alert, no apparent distress HEENT: Atraumatic Eyes: Anicteric, Neck: Supple Respiratory: Clear to auscultation bilaterally, normal respiratory effort Cardiovascular: Regular rate GI: Soft, nondistended, nontender to palpation, no rebound, guarding, rigidity Extremities: No edema Musculoskeletal: Moving all extremities Neuro: No overt focal neurological deficits Skin: No rashes appreciated Psych: Overall cooperative Assessment & Plan Assessment/Plan (1) Weakness: (2) Acute diarrhea: PLAN: Plan # Generalized weakness/debility/failure to thrive -Patient recently had been at [facility] and was discharged 08/20/2024 but has been having diarrhea since that time -May be due to diarrhea but cannot say definitively, checking UA -PT/OT -08/27: UA ordered, yet to be collected, will follow-up, continue to work with physical therapy, case management social work following -08/28: Patient now agreeable to placement, placement avenues been pursued -08/29: Patient pending acceptance and pre-CERT for [facility], patient stable and will be cleared for discharge once antibiotic and DC plan in place # Urinary tract infection -08/28: UA suggestive of UTI and urine culture positive for gram-negative rods, awaiting culture and sensitivity data, this may have contributed to some of patient's symptoms, patient will still benefit from placement -08/29: Patient growing ESBL E. coli, infectious disease consulted # Hypoxia, patient supposed to be on 3 L as needed at home -Patient 88% on room air now requiring 2 L of O2 -Chest x-ray with no acute abnormality -COVID and influenza negative, no tachycardia, tachypnea, shortness of breath or other indication that patient may have PE, it is possible there is component of atelectasis, incentive spirometer -Patient on nebs -No wheezing or other indication for IV steroids or that patient is having COPD exacerbation -08/27: Patient on nebs, per documentation he is supposed to be on 3 L as needed for his COPD, do not think there is an acute superimposed process at this time. He reports his breathing is at baseline, may just need to assess for updated O2 requirements on discharge -08/28: On every evaluation patient has his oxygen off and reports his breathing is at baseline -08/29: This a.m. patient 92% on room air -08/29: Patient presently on room air, continue nebs # Anemia -08/27: Hemoglobin 12.8, was 14.2 on presentation, no noted ongoing blood loss but will check FOBT. Will also repeat in this afternoon to verify no further drop. Will continue Plavix for now given no vital instability or overt bleeding low threshold to hold if needed. Will change Lovenox to SCDs -08/28: Hemoglobin overall stable, no further workup at this time -08/29: Hemoglobin still stable, will not need to presently pursue any further workup Chronic medical problems: # Patient with noted history of COPD -Continue nebs #HX CAD/PAD/CVA -Continue home beta-joel and Plavix and statin # History of seizure disorder -Patient on Tegretol #Hypertension -Continue clonidine, metoprolol, nifedipine, losartan #Chronic BPH with obstruction -Continue home medications #Tobacco use -Advise cessation -Nicotine replacement available if desired #Depression/anxiety -Continue home medications #GERD -Continue PPI # Diarrhea?resolved -Unclear etiology -Stool studies ordered -Respiratory panel ordered and is negative -08/27: Has not had any significant diarrhea, had 1 formed bowel movement earlier today, diarrhea resolved #DVT ppx: SCDs Celia Toribio MD Time spent in the patient's overall evaluation,decision-making process, review of diagnostic data, adjustment of management, discussion with other providers, nursing nursing and ancillary staff involved in patient's care documentation, 35 minutes Charges/Coding Visit Charges Inpatient E&M: 05178 Subs Hosp L2
[2024-08-29] MEDS: Menthol/Lanolin/Calamine/Znox 113 GM Tube 1 APPLIC TOPICAL ×2 (08:56→21:38)
[2024-08-29] MEDS: cloNIDine HCl 0.1 MG Tablet PO ×2 (08:57→21:39)
[2024-08-29] MEDS: carBAMazepine 200 MG Tablet PO ×2 (08:57→21:39)
[2024-08-29] MEDS: Clopidogrel Bisulfate 75 MG Tablet PO (08:57)
[2024-08-29] MEDS: Finasteride 5 MG Tablet PO (08:57)
[2024-08-29] MEDS: Losartan Potassium 100 MG Tablet PO (08:57)
[2024-08-29] MEDS: NIFEdipine 90 MG Tablet PO (08:57)
[2024-08-29] MEDS: Sertraline 100 MG Tablet PO (08:58)
[2024-08-29] MEDS: Metoprolol Tartrate 25 MG Tablet PO (08:58)
[2024-08-29] MEDS: Pantoprazole Sodium 40 MG Tablet PO (08:58)
[2024-08-29 09:12] LABS: Anion Gap 14 (5-15); BUN 30 mg/dL (4-19); BUN/Creat Ratio 24.6 RATIO (10-20); Carbon Dioxide 22.8 mmol/L (21.0-32.0); Chloride 104 mmol/L (98-108); Creatinine, Serum 1.21 mg/dL (0.70-1.20); EST Glomerular Filtration Rate 62 (>60); Estimated Creatinine Clearance 51.03 ml/min (50-250); Glucose 91 mg/dL (70-99); Potassium 4.1 mmol/L (3.3-5.1); Sodium Level 141 mmol/L (133-145)
[2024-08-29] MEDS: Ceftriaxone 1 GM/50 ML BAG IV (09:17)
--- NOTE | 2024-08-29 10:08 | CASEMGMT ---
Social Work- NATHANIEL met with pt to discuss that [facility] is unable to accept pt referral. Pt reports that he will go wherever will take me in [place]. NATHANIEL discussed [facility] return with pt, as facility had previously reported they may be willing to accept pt; pt agreeable. NATHANIEL updated [facility] on referral request. NATHANIEL received a call from Alysa at [facility]. Alysa will reach out to Giovana to confirm payee information. NATHANIEL remains available to follow. Plan: [facility]; skilled level of care pending acceptance and precert SHANE Cao
[2024-08-29] MEDS: 0.9% Saline Lock 10 ML Syringe IV (11:57)
[2024-08-29] MEDS: Piperacil/Tazobactam 4.5 GM in 0.9% Normal Saline (100mL MB+) 100 ML IV (11:57)
[2024-08-29] MEDS: Ipratropium/Albuterol Sulfate 3 ML AMPUL.NEB INHALATION ×2 (12:50→19:29)
--- NOTE | 2024-08-29 13:48 | CASEMGMT ---
Social Work- NATHANIEL spoke with [facility] Steffany to discuss who may be able to assist pt with payee, as prior, pt ex- would revoke [facility] payee and pt owes $5k to the facility. [facility] will only accept with pt having a payee in place who will allow [facility] to recoup patient liability cost. Steffany reports that pt brother declined to be involved in that capacity. NATHANIEL provided APS contact information for case picker and turf and grounds supervisor. NATHANIEL remains available to follow. SHANE Cao
[2024-08-29] MEDS: Piperacil/Tazobactam 3.375 GM in 0.9% Normal Saline (50mL MB+) 50 ML IV (21:32)
[2024-08-29] MEDS: Atorvastatin Calcium 40 MG Tablet PO (21:39)
[2024-08-29] MEDS: Mirtazapine 15 MG Tablet PO (21:39)
[2024-08-29] MEDS: Tamsulosin HCl 0.4 MG Capsule PO (21:39)
[2024-08-30] VITALS (8 sets, daily range): BP systolic 137–163; BP diastolic 71–85; PULSE 57–82; RESP 16–18; TEMP 36.4–37; O2SAT 91–93; BMI 23.4
[2024-08-30] MEDS: Piperacil/Tazobactam 3.375 GM in 0.9% Normal Saline (50mL MB+) 50 ML IV (05:46)
[2024-08-30] MEDS: Acetaminophen 500 MG Tablet 1000 MG PO ×3 (05:55→22:20)
[2024-08-30 06:20] LABS: Absolute Neutrophil Count 3.7 X10^3/uL (2.0-7.7); Basophil# 0.09 X10^3/uL; Basophil% 1.6 % (0-1); Eosinophil# 0.44 X10^3/uL; Eosinophils% 7.8 % (0-5); Hematocrit 41.8 % (40-54); Hemoglobin 13.8 g/dL (13.0-16.5); Lymphocyte % 17.8 % (19-41); Mean Corpuscular Hgb 31.9 pg (27.0-32.0); Mean Corpuscular Volume 96.5 fL (80-94); Mean Platelet Vol. 9.7 fl (6.2-12.0); Monocyte# 0.43 X10^3/uL; Monocyte% 7.6 % (0-10); NRBC Flagged by Analyzer 0 % (0-5); Neutrophil # 3.65 X10^3/uL (2.7-7.7); Neutrophil % 64.8 % (47-70); Platelet Count 309 K/mm3 (150-450); RBC Distribution Width CV 13.3 % (11.6-14.6); RBC Distribution Width SD 47.7 fl (35.1-43.9); Red Blood Count 4.33 M/mm3 (4.6-6.2); White Blood Count 5.6 K/mm3 (4.4-11.0)
--- NOTE | 2024-08-30 07:09 | PN.HOSP_ITS ---
Reason for Visit Reason for Visit: Diagnoses Diarrhea, unspecified (08/27/24) Weakness (08/27/24) Other malaise (08/27/24) Adult failure to thrive (08/27/24) Subjective Subjective Patient reports today he has increased cough and he is wheezing more, reports his stomach feels empty Objective Data Objective Data Vital Signs: Vital Signs Temp Pulse Resp BP Pulse Ox O2 Del Method O2 Flow Rate 98.6 F 65 18 147/75 H 92 Room Air 2 08/30/24 04:00 08/30/24 04:00 08/30/24 04:00 08/30/24 04:00 08/30/24 04:00 08/30/24 04:00 08/29/24 13:15 Oxygen Flow Rate (L/min) 2 Oxygen Delivery Method Room Air Weight: 70.1 kg Body Mass Index (BMI) 23.4 Intake & Output: Intake and Output for Last 24 Hours 08/28/24 08/29/24 08/30/24 23:59 23:59 23:59 Intake Total 325 / 325 966.67 / 966.67 50 / 50 Output Total 950 / 950 1225 / 1225 Balance -625 / -625 -258.33 / -258.33 50 / 50 Lab / Micro Data 08/30/24 05:48 08/30/24 05:48 Labs: Laboratory Results - last 24 hr 08/29/24 06:04: Sodium 141, Potassium 4.1, Chloride 104, Carbon Dioxide 22.8, Anion Gap 14, BUN 30 H, Creatinine 1.21 H, Estim Creat Clear Calc 51.03, Est GFR (MDRD) Non-Af 62, BUN/Creatinine Ratio 24.6 H, Glucose 91, Calcium 10.0 08/30/24 05:48: WBC 5.6, RBC 4.33 L, Hgb 13.8, Hct 41.8, MCV 96.5 H, MCH 31.9, MCHC 33.0, RDW Std Deviation 47.7 H, RDW Coeff of Aly 13.3, Plt Count 309, MPV 9.7, Immature Gran % (Auto) 0.400, Neut % (Auto) 64.8, Lymph % (Auto) 17.8 L, [place] % (Auto) 7.6, Eos % (Auto) 7.8 H, Baso % (Auto) 1.6 H, Absolute Neuts (auto) 3.7, Absolute Lymphs (auto) 1.00, Nucleated RBC % 0 Micro: Microbiology 08/27/24 12:25 Urine, Clean Catch Urine Culture - Preliminary ESBL Escherichia coli 08/26/24 10:09 Mucosa - Nasopharyngeal Respiratory Panel (PCR) - Final 08/26/24 10:20 Nasal Secretion SARS-CoV-2 Antigen (Rapid) - Final Physical Exam Narrative General: Alert, no apparent distress HEENT: Atraumatic Eyes: Anicteric, Neck: Supple Respiratory: Fairly normal respiratory effort but is diffusely wheezing Cardiovascular: Regular rate GI: Soft, nondistended, nontender to palpation, no rebound, guarding, rigidity Extremities: No edema Musculoskeletal: Moving all extremities Neuro: No overt focal neurological deficits Skin: No rashes appreciated Psych: Overall cooperative Assessment & Plan Assessment/Plan (1) Weakness: (2) Acute diarrhea: PLAN: Plan # Generalized weakness/debility/failure to thrive -Patient recently had been at [facility] and was discharged 08/20/2024 but has been having diarrhea since that time -May be due to diarrhea but cannot say definitively, checking UA -PT/OT -08/27: UA ordered, yet to be collected, will follow-up, continue to work with physical therapy, case management social work following -08/28: Patient now agreeable to placement, placement avenues been pursued -08/29: Patient pending acceptance and pre-CERT for [facility], patient stable and will be cleared for discharge once antibiotic and DC plan in place -08/30: Awaiting [facility] and [facility] determinations about payee so that patient can be placed at [facility], further dispo pending this # Urinary tract infection?ESBL E. coli UTI -08/28: UA suggestive of UTI and urine culture positive for gram-negative rods, awaiting culture and sensitivity data, this may have contributed to some of patient's symptoms, patient will still benefit from placement -08/29: Patient growing ESBL E. coli, infectious disease consulted -08/30: Continue patient on Zosyn, ID consult pending # Hypoxia, patient supposed to be on 3 L as needed at home-now mild COPD exacerbation -Patient 88% on room air now requiring 2 L of O2 -Chest x-ray with no acute abnormality -COVID and influenza negative, no tachycardia, tachypnea, shortness of breath or other indication that patient may have PE, it is possible there is component of atelectasis, incentive spirometer -Patient on nebs -No wheezing or other indication for IV steroids or that patient is having COPD exacerbation -08/27: Patient on nebs, per documentation he is supposed to be on 3 L as needed for his COPD, do not think there is an acute superimposed process at this time. He reports his breathing is at baseline, may just need to assess for updated O2 requirements on discharge -08/28: On every evaluation patient has his oxygen off and reports his breathing is at baseline -08/29: This a.m. patient 92% on room air -08/29: Patient presently on room air, continue nebs -08/30: Patient with some increased cough and is having wheezing, seems mild COPD exacerbation, nebs, brief oral steroid course for 5 days and oral azithromycin x 3 days. Encourage incentive spirometer and mobilization. Will swab for COVID and respiratory panel Chronic medical problems: # Patient with noted history of COPD -Continue nebs #HX CAD/PAD/CVA -Continue home beta-joel and Plavix and statin # History of seizure disorder -Patient on Tegretol #Hypertension -Continue clonidine, metoprolol, nifedipine, losartan #Chronic BPH with obstruction -Continue home medications #Tobacco use -Advise cessation -Nicotine replacement available if desired #Depression/anxiety -Continue home medications #GERD -Continue PPI # Diarrhea?resolved -Unclear etiology -Stool studies ordered -Respiratory panel ordered and is negative -08/27: Has not had any significant diarrhea, had 1 formed bowel movement earlier today, diarrhea resolved # Anemia -08/27: Hemoglobin 12.8, was 14.2 on presentation, no noted ongoing blood loss but will check FOBT. Will also repeat in this afternoon to verify no further drop. Will continue Plavix for now given no vital instability or overt bleeding low threshold to hold if needed. Will change Lovenox to SCDs -08/28: Hemoglobin overall stable, no further workup at this time -08/29: Hemoglobin still stable, will not need to presently pursue any further workup #DVT ppx: SCDs Celia Toribio MD Time spent in the patient's overall evaluation,decision-making process, review of diagnostic data, adjustment of management, discussion with other providers, nursing nursing and ancillary staff involved in patient's care documentation, 36 minutes Charges/Coding Visit Charges Inpatient E&M: 48738 Subs Hosp L2
[2024-08-30 08:20] LABS: Anion Gap 13 (5-15); BUN 26 mg/dL (4-19); BUN/Creat Ratio 21.4 RATIO (10-20); Calcium,Total 10.1 mg/dL (7.6-11.0); Carbon Dioxide 22.7 mmol/L (21.0-32.0); Chloride 102 mmol/L (98-108); Creatinine, Serum 1.21 mg/dL (0.70-1.20); EST Glomerular Filtration Rate 62 (>60); Estimated Creatinine Clearance 51.03 ml/min (50-250); Glucose 94 mg/dL (70-99); Potassium 4.2 mmol/L (3.3-5.1); Sodium Level 138 mmol/L (133-145)
[2024-08-30] MEDS: carBAMazepine 200 MG Tablet PO ×2 (09:04→22:23)
[2024-08-30] MEDS: NIFEdipine 90 MG Tablet PO (09:04)
[2024-08-30] MEDS: Losartan Potassium 100 MG Tablet PO (09:05)
[2024-08-30] MEDS: Metoprolol Tartrate 25 MG Tablet PO (09:05)
[2024-08-30] MEDS: Clopidogrel Bisulfate 75 MG Tablet PO (09:05)
[2024-08-30] MEDS: cloNIDine HCl 0.1 MG Tablet PO ×2 (09:06→22:20)
[2024-08-30] MEDS: Pantoprazole Sodium 40 MG Tablet PO (09:07)
[2024-08-30] MEDS: Menthol/Lanolin/Calamine/Znox 113 GM Tube 1 APPLIC TOPICAL ×2 (09:07→22:23)
[2024-08-30] MEDS: Finasteride 5 MG Tablet PO (09:07)
[2024-08-30] MEDS: Sertraline 100 MG Tablet PO (09:07)
[2024-08-30] MEDS: Ipratropium/Albuterol Sulfate 3 ML AMPUL.NEB INHALATION ×2 (09:21→19:39)
--- NOTE | 2024-08-30 11:17 | NURSING ---
new meds zithromax and prednisone unable to pull from [facility] at this time
--- NOTE | 2024-08-30 13:11 | CASEMGMT ---
Social Work- NATHANIEL called and left messages for Angeli and Nahed at [facility]. NATHANIEL called to collaborate with Steffany at [facility] on discharge plans; Steffany is awaiting information from Angeli and did not have any updates on ability to accept. NATHANIEL remains available to follow. SHANE Cao
[2024-08-30] MEDS: Azithromycin 250 MG Tablet 500 MG PO (13:19)
[2024-08-30] MEDS: predniSONE 20 MG Tablet 40 MG PO (13:19)
--- NOTE | 2024-08-30 13:40 | NURSING ---
pt refusing any swabs/testing in his nose
--- NOTE | 2024-08-30 13:43 | PCM.CONS.GEN ---
Assessment & Plan Assessment/Plan (1) Weakness: (2) Failure to thrive: QUALIFIERS: Failure to thrive age range: in adult Qualified Code(s): R62.7 - Adult failure to thrive PLAN: Ucx with ESBL ecoli, UA with 25-50 wbc but denies urinary symptoms. On azithro for short course for presumed copd exacerbation. Will change zosyn to macrobid, plan on 5 day course for suspected uti. Will follow prn, thank you HPI Consult Data Date of Consult: 08/30/24 HPI Narrative Reason for Consultation: esbl infection HPI Narrative: PEDRO PABLO SIERRA, is a 74 M with h/o compression fracture of L-spine, htn, afib, presented 08/25 with several days weakness, unable to care for himself at home. Had been having some diarrhea, not feeling well. Some dry cough. No dysuria or urine changes. Now on zosyn for (+) ucx. Feeling ok today. Full ROS performed and neg except as noted above. [facility] Medical History Compression fx, lumbar spine Hypertension Falls Hypertension Closed fracture of right superior pubic ramus Multiple falls Compression fracture of thoracic vertebra History of atrial fibrillation Iron deficiency anemia Chronic respiratory failure with hypoxia Osteoporosis Lumbar compression fracture Compression fracture Obstructive sleep apnea Hyperlipidemia Asthma Peripheral arterial occlusive disease Seizure disorder Chronic obstructive pulmonary disease Coronary artery disease Lupus anticoagulant disorder BPH (benign prostatic hyperplasia) Ulcerative colitis Peripheral vascular disease Anxiety COPD (chronic obstructive pulmonary disease) with emphysema Closed fracture of right inferior pubic ramus Acute UTI COPD (chronic obstructive pulmonary disease) UTI (urinary tract infection) Depression Diabetes Kidney stones Chronic pain Pancreatitis On home oxygen therapy Irregular heart beat Atrial fibrillation Stroke/cerebrovascular accident Smoker Falls frequently Seizures Sleep apnea COPD (chronic obstructive pulmonary disease) Asthma High cholesterol Tobacco abuse Home Medications ?Medication ?Instructions ?Recorded ?Last Taken ?Type tamsulosin 0.4 mg capsule 0.4 mg PO QHS bph 01/26/14 03/28/23 History finasteride 5 mg tablet 5 mg PO DAILY prostate 11/14/14 03/28/23 History atorvastatin 40 mg tablet 40 mg PO QHS Cholesterol 09/23/15 03/28/23 History mirtazapine 15 mg tablet 15 mg PO QHS anti depressant 08/16/19 03/28/23 History clopidogrel 75 mg tablet 75 mg PO DAILY blood thinner 10/25/19 03/28/23 History losartan 100 mg tablet 100 mg PO DAILY Blood pressure 08/19/21 03/28/23 History pantoprazole 40 mg tablet,delayed 40 mg PO DAILY GERD 08/19/21 03/28/23 History release nifedipine 90 mg tablet,extended 90 mg PO DAILY blood pressure 11/25/21 03/28/23 History release alendronate 70 mg tablet 70 mg PO QWEEK #1 TAB 11/30/21 03/28/23 Rx metoprolol tartrate 25 mg tablet 25 mg PO DAILY Blood pressure 03/30/23 03/28/23 History sennosides 8.6 mg-docusate sodium 2 tab PO BID PRN PRN Constipation 04/04/23 Unknown Rx 50 mg tablet (Stool #0 tabs Softener-Stimulant Laxative) acetaminophen 500 mg tablet 1,000 mg (2 x 500 mg) PO Q8 30 07/26/23 Unknown Rx days #0 tabs albuterol sulfate 90 mcg/actuation 1 puff inhalation Q8H 08/22/23 Unknown History aerosol inhaler carbamazepine 200 mg 200 mg PO Q12H 08/22/23 Unknown History tablet,extended release,12 hr cholecalciferol (vitamin D3) 50 50 mcg PO DAILY 08/22/23 Unknown History mcg (2,000 unit) tablet clonidine HCl 0.1 mg tablet 0.1 mg PO BID 08/22/23 Unknown History guaifenesin 100 mg/5 mL oral liquid 200 mg PO Q4H PRN congestion 08/22/23 Unknown History sertraline 100 mg tablet 100 mg PO DAILY 08/22/23 Unknown History ergocalciferol (vitamin D2) 1,250 1,250 mcg PO Q7D #0 caps 04/10/24 Unknown Rx mcg (50,000 unit) capsule (Vitamin D2) Allergy/AdvReac Type Severity Reaction Status Date / Time No Known Allergies Allergy Verified 04/06/24 11:12 Family History Other Heart disease Surgical History S/P arterial stent History of appendectomy Social History (Updated 08/25/24 @ 18:[address] 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: [employer] 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 Smoking Status: Current some day smoker tobacco type: cigarettes alcohol intake: former details: Former alcoholic quit several years ago substance use type: does not use caffeine: Yes Type: coffee Number of servings: 3 Physical Exam Const alert and no apparent distress General Appearance: cooperative HEENT normocephalic and head/scalp atraumatic Eyes PERRL and EOMs intact bilaterally Neck supple and No nodes Resp normal air movement and clear to auscultation bilaterally Cardio regular rate and regular rhythm GI soft to palpation, non-tender and non-distended Extremity General Extremity: Negative for edema Skin no rashes or lesions noted Neuro CN's II-XII intact bilaterally Lab / Micro Data Attestation: I reviewed the patient's lab results. 08/30/24 05:48 08/30/24 05:48 Labs: Laboratory Results - last 24 hr 08/30/24 05:48: WBC 5.6, RBC 4.33 L, Hgb 13.8, Hct 41.8, MCV 96.5 H, MCH 31.9, MCHC 33.0, RDW Std Deviation 47.7 H, RDW Coeff of Aly 13.3, Plt Count 309, MPV 9.7, Immature Gran % (Auto) 0.400, Neut % (Auto) 64.8, Lymph % (Auto) 17.8 L, [place] % (Auto) 7.6, Eos % (Auto) 7.8 H, Baso % (Auto) 1.6 H, Absolute Neuts (auto) 3.7, Absolute Lymphs (auto) 1.00, Nucleated RBC % 0, Sodium 138, Potassium 4.2, Chloride 102, Carbon Dioxide 22.7, Anion Gap 13, BUN 26 H, Creatinine 1.21 H, Estim Creat Clear Calc 51.03, Est GFR (MDRD) Non-Af 62, BUN/Creatinine Ratio 21.4 H, Glucose 94, Calcium 10.1 Micro: Microbiology 08/27/24 12:25 Urine, Clean Catch Urine Culture - Preliminary ESBL Escherichia coli
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
--- NOTE | 2024-08-30 14:40 | CASEMGMT ---
[facility] has accepted. Updates sent and precert will be submitted. Jacquie Michaud DC Planning Asst.
[2024-08-30] MEDS: Tamsulosin HCl 0.4 MG Capsule PO (22:20)
[2024-08-30] MEDS: Atorvastatin Calcium 40 MG Tablet PO (22:20)
[2024-08-30] MEDS: Mirtazapine 15 MG Tablet PO (22:20)
[2024-08-30] MEDS: 0.9% Saline Lock 10 ML Syringe IV ×2 (22:21→22:49)
[2024-08-30] MEDS: Nitrofurantoin Macrocrystals 100 MG Capsule PO (22:22)
[2024-08-30] MEDS: hydrALAZINE 20 MG/ML Vial 10 MG IV (22:49)
[2024-08-31] VITALS (10 sets, daily range): BP systolic 126–160; BP diastolic 66–71; PULSE 60–83; RESP 14–18; TEMP 36.3–36.8; O2SAT 88–97; BMI 22.6
[2024-08-31] MEDS: Acetaminophen 500 MG Tablet 1000 MG PO ×3 (05:58→21:01)
[2024-08-31] MEDS: Ipratropium/Albuterol Sulfate 3 ML AMPUL.NEB INHALATION ×2 (07:26→19:22)
--- NOTE | 2024-08-31 07:48 | PN.HOSP_ITS ---
Reason for Visit Reason for Visit: Diagnoses Diarrhea, unspecified (08/27/24) Weakness (08/27/24) Other malaise (08/27/24) Adult failure to thrive (08/27/24) Subjective Subjective Every day on evaluation patient reports he feels terrible though is always resting comfortably, complaints are vague, reports may be some GI upset but does report bowel movement earlier today, no vomiting, breathing improving Objective Data Objective Data Vital Signs: Vital Signs Temp Pulse Resp BP Pulse Ox O2 Del Method O2 Flow Rate 97.4 F L 75 14 160/70 H 92 Room Air 2 08/31/24 05:57 08/31/24 07:29 08/31/24 07:29 08/31/24 05:57 08/31/24 07:29 08/31/24 07:29 08/30/24 09:05 Oxygen Flow Rate (L/min) 2 Oxygen Delivery Method Room Air Weight: 67.6 kg Body Mass Index (BMI) 22.6 Intake & Output: Intake and Output for Last 24 Hours 08/29/24 08/30/24 08/31/24 23:59 23:59 23:59 Intake Total 966.67 / 966.67 600 / 600 100 / 100 Output Total 1225 / 1225 200 / 200 Balance -258.33 / -258.33 400 / 400 100 / 100 Lab / Micro Data 08/30/24 05:48 08/31/24 06:37 Labs: Laboratory Results - last 24 hr 08/30/24 05:48: Sodium 138, Potassium 4.2, Chloride 102, Carbon Dioxide 22.7, Anion Gap 13, BUN 26 H, Creatinine 1.21 H, Estim Creat Clear Calc 51.03, Est GFR (MDRD) Non-Af 62, BUN/Creatinine Ratio 21.4 H, Glucose 94, Calcium 10.1 Micro: Microbiology 08/27/24 12:25 Urine, Clean Catch Urine Culture - Preliminary ESBL Escherichia coli 08/26/24 10:09 Mucosa - Nasopharyngeal Respiratory Panel (PCR) - Final 08/26/24 10:20 Nasal Secretion SARS-CoV-2 Antigen (Rapid) - Final Physical Exam Narrative General: Alert, no apparent distress HEENT: Atraumatic Eyes: Anicteric, Neck: Supple Respiratory: Normal respiratory effort with wheezing resolved Cardiovascular: Regular rate GI: Soft, nondistended, nontender to palpation, no rebound, guarding, rigidity Extremities: No edema Musculoskeletal: Moving all extremities Neuro: No overt focal neurological deficits Skin: No rashes appreciated Psych: Overall cooperative Assessment & Plan Assessment/Plan (1) Weakness: (2) Acute diarrhea: PLAN: Plan # Generalized weakness/debility/failure to thrive -Patient recently had been at [facility] [place] and was discharged 08/20/2024 but has been having diarrhea since that time -May be due to diarrhea but cannot say definitively, checking UA -PT/OT -08/27: UA ordered, yet to be collected, will follow-up, continue to work with physical therapy, case management social work following -08/28: Patient now agreeable to placement, placement avenues been pursued -08/29: Patient pending acceptance and pre-CERT for [facility], patient stable and will be cleared for discharge once antibiotic and DC plan in place -08/30: Awaiting [facility] [place] and [facility]PS determinations about payee so that patient can be placed at [facility] [place], further dispo pending this -08/31: Patient accepted and pre-CERT pending # Urinary tract infection?ESBL E. coli UTI -08/28: UA suggestive of UTI and urine culture positive for gram-negative rods, awaiting culture and sensitivity data, this may have contributed to some of patient's symptoms, patient will still benefit from placement -08/29: Patient growing ESBL E. coli, infectious disease consulted -08/30: Continue patient on Zosyn, ID consult pending -08/31: Patient transitioned to Macrobid, ID note reviewed # Hypoxia, patient supposed to be on 3 L as needed at home-now mild COPD exacerbation -Patient 88% on room air now requiring 2 L of O2 -Chest x-ray with no acute abnormality -COVID and influenza negative, no tachycardia, tachypnea, shortness of breath or other indication that patient may have PE, it is possible there is component of atelectasis, incentive spirometer -Patient on nebs -No wheezing or other indication for IV steroids or that patient is having COPD exacerbation -08/27: Patient on nebs, per documentation he is supposed to be on 3 L as needed for his COPD, do not think there is an acute superimposed process at this time. He reports his breathing is at baseline, may just need to assess for updated O2 requirements on discharge -08/28: On every evaluation patient has his oxygen off and reports his breathing is at baseline -08/29: This a.m. patient 92% on room air -08/29: Patient presently on room air, continue nebs -08/30: Patient with some increased cough and is having wheezing, seems mild COPD exacerbation, nebs, brief oral steroid course for 5 days and oral azithromycin x 3 days. Encourage incentive spirometer and mobilization. Will swab for COVID and respiratory panel -08/31: Patient adamantly refused respiratory panels, does seem to be doing better on oral steroids and azithromycin, wheezing resolved, will complete course for treatment for mild COPD exacerbation #Hypertension -Continue clonidine, metoprolol, nifedipine, losartan -08/31: Remains hypertensive, metoprolol tartrate was only once daily, this was changed to twice daily especially given continued hypertension, clonidine also changed to 3 times daily for better control Chronic medical problems: # Patient with noted history of COPD -Continue nebs #HX CAD/PAD/CVA -Continue home beta-joel and Plavix and statin # History of seizure disorder -Patient on Tegretol #Chronic BPH with obstruction -Continue home medications #Tobacco use -Advise cessation -Nicotine replacement available if desired #Depression/anxiety -Continue home medications #GERD -Continue PPI # Diarrhea?resolved -Unclear etiology -Stool studies ordered -Respiratory panel ordered and is negative -08/27: Has not had any significant diarrhea, had 1 formed bowel movement earlier today, diarrhea resolved # Anemia -08/27: Hemoglobin 12.8, was 14.2 on presentation, no noted ongoing blood loss but will check FOBT. Will also repeat in this afternoon to verify no further drop. Will continue Plavix for now given no vital instability or overt bleeding low threshold to hold if needed. Will change Lovenox to SCDs -08/28: Hemoglobin overall stable, no further workup at this time -08/29: Hemoglobin still stable, will not need to presently pursue any further workup #DVT ppx: SCDs Celia Toribio MD Time spent in the patient's overall evaluation,decision-making process, review of diagnostic data, adjustment of management, discussion with other providers, nursing nursing and ancillary staff involved in patient's care documentation, 36 minutes Charges/Coding Visit Charges Inpatient E&M: 83212 Subs Hosp L2
[2024-08-31] MEDS: predniSONE 20 MG Tablet 40 MG PO (08:24)
[2024-08-31] MEDS: Losartan Potassium 100 MG Tablet PO (08:25)
[2024-08-31] MEDS: cloNIDine HCl 0.1 MG Tablet PO ×3 (08:25→21:01)
[2024-08-31] MEDS: Menthol/Lanolin/Calamine/Znox 113 GM Tube 1 APPLIC TOPICAL ×2 (08:25→21:07)
[2024-08-31] MEDS: Metoprolol Tartrate 25 MG Tablet PO ×2 (08:26→21:02)
[2024-08-31] MEDS: Nitrofurantoin Macrocrystals 100 MG Capsule PO ×2 (08:27→21:02)
[2024-08-31] MEDS: Clopidogrel Bisulfate 75 MG Tablet PO (08:28)
[2024-08-31] MEDS: NIFEdipine 90 MG Tablet PO (08:28)
[2024-08-31] MEDS: Finasteride 5 MG Tablet PO (08:29)
[2024-08-31] MEDS: carBAMazepine 200 MG Tablet PO ×2 (08:29→21:03)
[2024-08-31] MEDS: Pantoprazole Sodium 40 MG Tablet PO (08:29)
[2024-08-31] MEDS: Azithromycin 250 MG Tablet 500 MG PO (08:30)
[2024-08-31] MEDS: Sertraline 100 MG Tablet PO (08:30)
[2024-08-31 08:44] LABS: Anion Gap 15 (5-15); BUN 30 mg/dL (4-19); BUN/Creat Ratio 25.7 RATIO (10-20); Carbon Dioxide 21.5 mmol/L (21.0-32.0); Chloride 102 mmol/L (98-108); Creatinine, Serum 1.16 mg/dL (0.70-1.20); EST Glomerular Filtration Rate 66 (>60); Estimated Creatinine Clearance 52.61 ml/min (50-250); Glucose 93 mg/dL (70-99); Potassium 3.8 mmol/L (3.3-5.1); Sodium Level 138 mmol/L (133-145)
--- NOTE | 2024-08-31 14:28 | CASEMGMT ---
Social Work SW checked [facility] multiple times, no precert has been attained for pt to go to [facility]. SW will continue to follow. EVELIN Garcia
[2024-08-31] MEDS: Mirtazapine 15 MG Tablet PO (21:02)
[2024-08-31] MEDS: Atorvastatin Calcium 40 MG Tablet PO (21:02)
[2024-08-31] MEDS: Tamsulosin HCl 0.4 MG Capsule PO (21:02)
[2024-09-01] VITALS (10 sets, daily range): BP systolic 127–174; BP diastolic 63–88; PULSE 58–85; RESP 16–18; TEMP 36.4–36.7; O2SAT 92–98
[2024-09-01] MEDS: hydrALAZINE 20 MG/ML Vial 10 MG IV (03:48)
[2024-09-01] MEDS: cloNIDine HCl 0.1 MG Tablet PO ×3 (05:34→22:21)
[2024-09-01] MEDS: Acetaminophen 500 MG Tablet 1000 MG PO ×3 (05:35→22:23)
[2024-09-01 06:04] LABS: Absolute Lymphocyte Count 1.45 X10^3/uL (0.83-4.51); Absolute Neutrophil Count 4.9 X10^3/uL (2.0-7.7); Basophil# 0.07 X10^3/uL; Eosinophil# 0.03 X10^3/uL; Eosinophils% 0.4 % (0-5); Hematocrit 43.2 % (40-54); Hemoglobin 14.1 g/dL (13.0-16.5); Lymphocyte # 1.45 X10^3/ul (0.83-4.51); Lymphocyte % 20.9 % (19-41); Mean Corp Hgb Conc 32.6 g/dL (32-36); Mean Corpuscular Hgb 31.4 pg (27.0-32.0); Mean Corpuscular Volume 96.2 fL (80-94); Mean Platelet Vol. 9.5 fl (6.2-12.0); Monocyte# 0.43 X10^3/uL; Monocyte% 6.2 % (0-10); NRBC Flagged by Analyzer 0 % (0-5); Neutrophil # 4.92 X10^3/uL (2.7-7.7); Neutrophil % 70.9 % (47-70); Platelet Count 367 K/mm3 (150-450); RBC Distribution Width CV 13.3 % (11.6-14.6); RBC Distribution Width SD 47.4 fl (35.1-43.9); Red Blood Count 4.49 M/mm3 (4.6-6.2); White Blood Count 6.9 K/mm3 (4.4-11.0)
[2024-09-01] MEDS: Ipratropium/Albuterol Sulfate 3 ML AMPUL.NEB INHALATION ×3 (06:50→18:55)
[2024-09-01 06:57] LABS: Anion Gap 16 (5-15); BUN 40 mg/dL (4-19); BUN/Creat Ratio 30.2 RATIO (10-20); Calcium,Total 9.7 mg/dL (7.6-11.0); Carbon Dioxide 19.4 mmol/L (21.0-32.0); Chloride 103 mmol/L (98-108); Creatinine, Serum 1.33 mg/dL (0.70-1.20); EST Glomerular Filtration Rate 56 (>60); Estimated Creatinine Clearance 45.89 ml/min (50-250); Glucose 83 mg/dL (70-99); Potassium 3.8 mmol/L (3.3-5.1); Sodium Level 139 mmol/L (133-145)
--- NOTE | 2024-09-01 07:58 | PN.HOSP_ITS ---
Reason for Visit Reason for Visit: Diagnoses Diarrhea, unspecified (08/27/24) Weakness (08/27/24) Other malaise (08/27/24) Adult failure to thrive (08/27/24) Subjective Subjective Patient reports he did not sleep well last night, also has an aching left side of his neck, no other new acute complaints Objective Data Objective Data Vital Signs: Vital Signs Temp Pulse Resp BP Pulse Ox O2 Del Method O2 Flow Rate 97.5 F L 58 L 16 167/88 H 93 Room Air 2 09/01/24 05:32 09/01/24 05:32 09/01/24 05:32 09/01/24 05:32 09/01/24 05:32 09/01/24 06:50 08/31/24 21:30 Oxygen Flow Rate (L/min) 2 Oxygen Delivery Method Room Air Weight: 67.6 kg Body Mass Index (BMI) 22.6 Intake & Output: Intake and Output for Last 24 Hours 08/30/24 08/31/24 09/01/24 23:59 23:59 23:59 Intake Total 600 / 600 820 / 1020 350 / 350 Output Total 200 / 200 400 / 400 Balance 400 / 400 820 / 1020 -50 / -50 Lab / Micro Data 09/01/24 05:26 09/01/24 05:26 Labs: Laboratory Results - last 24 hr 08/31/24 06:37: Sodium 138, Potassium 3.8, Chloride 102, Carbon Dioxide 21.5, Anion Gap 15, BUN 30 H, Creatinine 1.16, Estim Creat Clear Calc 52.61, Est GFR (MDRD) Non-Af 66, BUN/Creatinine Ratio 25.7 H, Glucose 93, Calcium 10.0 09/01/24 05:26: WBC 6.9, RBC 4.49 L, Hgb 14.1, Hct 43.2, MCV 96.2 H, MCH 31.4, MCHC 32.6, RDW Std Deviation 47.4 H, RDW Coeff of Aly 13.3, Plt Count 367, MPV 9.5, Immature Gran % (Auto) 0.600, Neut % (Auto) 70.9 H, Lymph % (Auto) 20.9, [place] % (Auto) 6.2, Eos % (Auto) 0.4, Baso % (Auto) 1.0, Absolute Neuts (auto) 4.9, Absolute Lymphs (auto) 1.45, Nucleated RBC % 0, Sodium 139, Potassium 3.8, Chloride 103, Carbon Dioxide 19.4 L, Anion Gap 16 H, BUN 40 H, Creatinine 1.33 H , Estim Creat Clear Calc 45.89 L, Est GFR (MDRD) Non-Af 56 L, BUN/Creatinine Ratio 30.2 H, Glucose 83, Calcium 9.7 Micro: Microbiology 08/27/24 12:25 Urine, Clean Catch Urine Culture - Preliminary ESBL Escherichia coli 08/26/24 10:09 Mucosa - Nasopharyngeal Respiratory Panel (PCR) - Final 08/26/24 10:20 Nasal Secretion SARS-CoV-2 Antigen (Rapid) - Final Physical Exam Narrative General: Alert, no apparent distress HEENT: Atraumatic Eyes: Anicteric, Neck: Supple Respiratory: Normal respiratory effort with wheezing resolved Cardiovascular: Regular rate GI: Soft, nondistended, nontender to palpation, no rebound, guarding, rigidity Extremities: No edema Musculoskeletal: Moving all extremities Neuro: No overt focal neurological deficits Skin: No rashes appreciated Psych: Overall cooperative Assessment & Plan Assessment/Plan (1) Weakness: (2) Acute diarrhea: PLAN: Plan # Generalized weakness/debility/failure to thrive -Patient recently had been at [facility] and was discharged 08/20/2024 but has been having diarrhea since that time -May be due to diarrhea but cannot say definitively, checking UA -PT/OT -08/27: UA ordered, yet to be collected, will follow-up, continue to work with physical therapy, case management social work following -08/28: Patient now agreeable to placement, placement avenues been pursued -08/29: Patient pending acceptance and pre-CERT for [facility], patient stable and will be cleared for discharge once antibiotic and DC plan in place -08/30: Awaiting [facility] and [facility] determinations about payee so that patient can be placed at [facility], further dispo pending this -08/31: Patient accepted and pre-CERT pending -09/01: Patient requires placement, still awaiting insurance authorization # Urinary tract infection?ESBL E. coli UTI -08/28: UA suggestive of UTI and urine culture positive for gram-negative rods, awaiting culture and sensitivity data, this may have contributed to some of patient's symptoms, patient will still benefit from placement -08/29: Patient growing ESBL E. coli, infectious disease consulted -08/30: Continue patient on Zosyn, ID consult pending -08/31: Patient transitioned to Macrobid, ID note reviewed -09/01: Tolerating Macrobid, continuing biotics and supportive care # Hypoxia, patient supposed to be on 3 L as needed at home-now mild COPD exacerbation -Patient 88% on room air now requiring 2 L of O2 -Chest x-ray with no acute abnormality -COVID and influenza negative, no tachycardia, tachypnea, shortness of breath or other indication that patient may have PE, it is possible there is component of atelectasis, incentive spirometer -Patient on nebs -No wheezing or other indication for IV steroids or that patient is having COPD exacerbation -08/27: Patient on nebs, per documentation he is supposed to be on 3 L as needed for his COPD, do not think there is an acute superimposed process at this time. He reports his breathing is at baseline, may just need to assess for updated O2 requirements on discharge -08/28: On every evaluation patient has his oxygen off and reports his breathing is at baseline -08/29: This a.m. patient 92% on room air -08/29: Patient presently on room air, continue nebs -08/30: Patient with some increased cough and is having wheezing, seems mild COPD exacerbation, nebs, brief oral steroid course for 5 days and oral azithromycin x 3 days. Encourage incentive spirometer and mobilization. Will swab for COVID and respiratory panel -08/31: Patient adamantly refused respiratory panels, does seem to be doing better on oral steroids and azithromycin, wheezing resolved, will complete course for treatment for mild COPD exacerbation -09/01: Significantly improved, continue azithromycin and prednisone #Hypertension -Continue clonidine, metoprolol, nifedipine, losartan -08/31: Remains hypertensive, metoprolol tartrate was only once daily, this was changed to twice daily especially given continued hypertension, clonidine also changed to 3 times daily for better control -09/01: BP variable, did get down to systolic in 120s yesterday but increased again, will need to continue to work on adjusting medications, did just have increasing clonidine tomorrow, can consider further adjustments tomorrow if patient remains hypertensive Chronic medical problems: # Patient with noted history of COPD -Continue nebs #HX CAD/PAD/CVA -Continue home beta-joel and Plavix and statin # History of seizure disorder -Patient on Tegretol #Chronic BPH with obstruction -Continue home medications #Tobacco use -Advise cessation -Nicotine replacement available if desired #Depression/anxiety -Continue home medications #GERD -Continue PPI # Diarrhea?resolved -Unclear etiology -Stool studies ordered -Respiratory panel ordered and is negative -08/27: Has not had any significant diarrhea, had 1 formed bowel movement earlier today, diarrhea resolved # Anemia -08/27: Hemoglobin 12.8, was 14.2 on presentation, no noted ongoing blood loss but will check FOBT. Will also repeat in this afternoon to verify no further drop. Will continue Plavix for now given no vital instability or overt bleeding low threshold to hold if needed. Will change Lovenox to SCDs -08/28: Hemoglobin overall stable, no further workup at this time -08/29: Hemoglobin still stable, will not need to presently pursue any further workup #DVT ppx: SCDs Celia Toribio MD Charges/Coding Visit Charges Inpatient E&M: 00606 Subs Hosp L1
[2024-09-01] MEDS: 0.9% Normal Saline (1000mL) 1,000 ML 50 ML IV (09:02)
[2024-09-01] MEDS: 0.9% Saline Lock 10 ML Syringe IV (09:02)
[2024-09-01] MEDS: Nitrofurantoin Macrocrystals 100 MG Capsule PO ×2 (09:03→22:22)
[2024-09-01] MEDS: Metoprolol Tartrate 25 MG Tablet PO ×2 (09:03→22:21)
[2024-09-01] MEDS: Menthol/Lanolin/Calamine/Znox 113 GM Tube 1 APPLIC TOPICAL ×2 (09:03→22:21)
[2024-09-01] MEDS: predniSONE 20 MG Tablet 40 MG PO (09:04)
[2024-09-01] MEDS: Losartan Potassium 100 MG Tablet PO (09:05)
[2024-09-01] MEDS: Clopidogrel Bisulfate 75 MG Tablet PO (09:05)
[2024-09-01] MEDS: NIFEdipine 90 MG Tablet PO (09:05)
[2024-09-01] MEDS: Pantoprazole Sodium 40 MG Tablet PO (09:05)
[2024-09-01] MEDS: carBAMazepine 200 MG Tablet PO ×2 (09:06→22:22)
[2024-09-01] MEDS: Finasteride 5 MG Tablet PO (09:06)
[2024-09-01] MEDS: Azithromycin 250 MG Tablet 500 MG PO (09:06)
[2024-09-01] MEDS: Sertraline 100 MG Tablet PO (09:07)
[2024-09-01 14:17] LABS: Anion Gap 13 (5-15); BUN 39 mg/dL (4-19); BUN/Creat Ratio 26.8 RATIO (10-20); Calcium,Total 9.6 mg/dL (7.6-11.0); Carbon Dioxide 21.9 mmol/L (21.0-32.0); Chloride 102 mmol/L (98-108); Creatinine, Serum 1.44 mg/dL (0.70-1.20); EST Glomerular Filtration Rate 51 (>60); Estimated Creatinine Clearance 42.38 ml/min (50-250); Glucose 118 mg/dL (70-99); Potassium 4.1 mmol/L (3.3-5.1); Sodium Level 137 mmol/L (133-145)
[2024-09-01] MEDS: Atorvastatin Calcium 40 MG Tablet PO (22:21)
[2024-09-01] MEDS: Tamsulosin HCl 0.4 MG Capsule PO (22:22)
[2024-09-01] MEDS: Mirtazapine 15 MG Tablet PO (22:22)
[2024-09-01] MEDS: MELATONIN 10 MG TABLET PO (22:26)
[2024-09-02] VITALS (7 sets, daily range): BP systolic 138–150; BP diastolic 59–88; PULSE 62–77; RESP 16–18; TEMP 36.3–36.6; O2SAT 92–94; BMI 22.8
[2024-09-02] MEDS: cloNIDine HCl 0.1 MG Tablet PO ×3 (05:09→20:48)
[2024-09-02] MEDS: Acetaminophen 500 MG Tablet 1000 MG PO ×3 (05:10→20:47)
[2024-09-02] MEDS: Ipratropium/Albuterol Sulfate 3 ML AMPUL.NEB INHALATION (07:35)
--- NOTE | 2024-09-02 09:27 | CASEMGMT ---
[facility] has obtained auth to admit. SW updated. Jacquie Michaud DC Planning Asst.
[2024-09-02] MEDS: predniSONE 20 MG Tablet 40 MG PO (10:04)
[2024-09-02] MEDS: Menthol/Lanolin/Calamine/Znox 113 GM Tube 1 APPLIC TOPICAL ×2 (10:04→20:47)
[2024-09-02] MEDS: Nitrofurantoin Macrocrystals 100 MG Capsule PO (10:05)
[2024-09-02] MEDS: Sertraline 100 MG Tablet PO (10:05)
[2024-09-02] MEDS: Finasteride 5 MG Tablet PO (10:05)
[2024-09-02] MEDS: carBAMazepine 200 MG Tablet PO ×2 (10:05→20:48)
[2024-09-02] MEDS: Ergocalciferol 1.25 MG (50, 000 UNIT) Capsule PO (10:05)
[2024-09-02] MEDS: Losartan Potassium 100 MG Tablet PO (10:06)
[2024-09-02] MEDS: Metoprolol Tartrate 25 MG Tablet PO ×2 (10:06→20:48)
[2024-09-02] MEDS: Pantoprazole Sodium 40 MG Tablet PO (10:06)
[2024-09-02] MEDS: NIFEdipine 90 MG Tablet PO (10:07)
[2024-09-02] MEDS: Clopidogrel Bisulfate 75 MG Tablet PO (10:10)
[2024-09-02] MEDS: Meropenem 1 GM in 0.9% Normal Saline (100mL MB+) 100 ML IV (11:27)
[2024-09-02 13:34] LABS: Anion Gap 11 (5-15); BUN 33 mg/dL (4-19); Calcium,Total 9.2 mg/dL (7.6-11.0); Carbon Dioxide 20.8 mmol/L (21.0-32.0); Chloride 106 mmol/L (98-108); Creatinine, Serum 1.22 mg/dL (0.70-1.20); EST Glomerular Filtration Rate 62 (>60); Estimated Creatinine Clearance 50.54 ml/min (50-250); Glucose 99 mg/dL (70-99); Sodium Level 138 mmol/L (133-145)
--- NOTE | 2024-09-02 14:25 | PCM.PN.ID ---
Physical Exam Narrative C/o some dysuria. No fever, no abd pain Const alert and no apparent distress General Appearance: cooperative Resp normal air movement and clear to auscultation bilaterally Cardio regular rate and regular rhythm GI soft to palpation, non-tender and non-distended Skin no rashes or lesions noted ID ID: Route of nutrition/ use of supplements: [] Nutritional Intake: [] IV Site: [] Pizano Catheter: [] Assessment & Plan Assessment/Plan (1) Weakness: (2) Failure to thrive: QUALIFIERS: Failure to thrive age range: in adult Qualified Code(s): R62.7 - Adult failure to thrive PLAN: Ucx with ESBL ecoli, UA with 25-50 wbc. Now with urinary sx. Macrobid less effective with decreasing GFR. Will change to meropenem. If leaves soon, would give one dose fosfomycin 3gm po before discharge. Will follow
--- NOTE | 2024-09-02 14:46 | PCM.PN.HOSP ---
Reason for Visit Reason for Visit: Diagnoses Diarrhea, unspecified (08/27/24) Weakness (08/27/24) Other malaise (08/27/24) Adult failure to thrive (08/27/24) Objective Data Objective Data Vital Signs: Vital Signs Temp Pulse Resp BP Pulse Ox O2 Del Method O2 Flow Rate 97.5 F L 77 18 149/74 H 92 Room Air 2 09/02/24 10:14 09/02/24 10:14 09/02/24 10:14 09/02/24 10:14 09/02/24 10:14 09/02/24 10:14 09/01/24 22:41 Oxygen Flow Rate (L/min) 2 Oxygen Delivery Method Room Air Weight: 150 lb 9.211 oz Body Mass Index (BMI) 22.8 Intake & Output: Intake and Output for Last 24 Hours 08/31/24 09/01/24 09/02/24 23:59 23:59 23:59 Intake Total 820 / 1020 1050 / 1050 100 / 100 Output Total 750 / 750 600 / 600 Balance 820 / 1020 300 / 300 -500 / -500 Lab / Micro Data 09/01/24 05:26 09/02/24 05:22 Labs: Laboratory Results - last 24 hr 09/02/24 05:22: Sodium 138, Potassium 4.0, Chloride 106, Carbon Dioxide 20.8 L, Anion Gap 11, BUN 33 H, Creatinine 1.22 H, Estim Creat Clear Calc 50.54, Est GFR (MDRD) Non-Af 62, BUN/Creatinine Ratio 27.0 H, Glucose 99, Calcium 9.2 Micro: Microbiology 08/27/24 12:25 Urine, Clean Catch Urine Culture - Preliminary ESBL Escherichia coli 08/26/24 10:09 Mucosa - Nasopharyngeal Respiratory Panel (PCR) - Final 08/26/24 10:20 Nasal Secretion SARS-CoV-2 Antigen (Rapid) - Final Physical Exam Narrative Seen and examined Patient has chronic issues, chronic cough. Assessment & Plan Assessment/Plan (1) Weakness: (2) Acute diarrhea: PLAN: Plan # Generalized weakness/debility/failure to thrive -Patient recently had been at [facility] and was discharged 08/20/2024 but has been having diarrhea since that time -May be due to diarrhea but cannot say definitively, checking UA -PT/OT -08/27: UA ordered, yet to be collected, will follow-up, continue to work with physical therapy, case management social work following -08/28: Patient now agreeable to placement, placement avenues been pursued -08/29: Patient pending acceptance and pre-CERT for [facility], patient stable and will be cleared for discharge once antibiotic and DC plan in place -08/30: Awaiting [facility] and [facility] determinations about payee so that patient can be placed at [facility], further dispo pending this -08/31: Patient accepted and pre-CERT pending -09/01: Patient requires placement, still awaiting insurance authorization # Urinary tract infection?ESBL E. coli UTI -08/28: UA suggestive of UTI and urine culture positive for gram-negative rods, awaiting culture and sensitivity data, this may have contributed to some of patient's symptoms, patient will still benefit from placement -08/29: Patient growing ESBL E. coli, infectious disease consulted -08/30: Continue patient on Zosyn, ID consult pending -08/31: Patient transitioned to Macrobid, ID note reviewed -09/01: Tolerating Macrobid, continuing biotics and supportive care # Hypoxia, patient supposed to be on 3 L as needed at home-now mild COPD exacerbation -Patient 88% on room air now requiring 2 L of O2 -Chest x-ray with no acute abnormality -COVID and influenza negative, no tachycardia, tachypnea, shortness of breath or other indication that patient may have PE, it is possible there is component of atelectasis, incentive spirometer -Patient on nebs -No wheezing or other indication for IV steroids or that patient is having COPD exacerbation -08/27: Patient on nebs, per documentation he is supposed to be on 3 L as needed for his COPD, do not think there is an acute superimposed process at this time. He reports his breathing is at baseline, may just need to assess for updated O2 requirements on discharge -08/28: On every evaluation patient has his oxygen off and reports his breathing is at baseline -08/29: This a.m. patient 92% on room air -08/29: Patient presently on room air, continue nebs -08/30: Patient with some increased cough and is having wheezing, seems mild COPD exacerbation, nebs, brief oral steroid course for 5 days and oral azithromycin x 3 days. Encourage incentive spirometer and mobilization. Will swab for COVID and respiratory panel -08/31: Patient adamantly refused respiratory panels, does seem to be doing better on oral steroids and azithromycin, wheezing resolved, will complete course for treatment for mild COPD exacerbation -09/01: Significantly improved, continue azithromycin and prednisone #Hypertension -Continue clonidine, metoprolol, nifedipine, losartan -08/31: Remains hypertensive, metoprolol tartrate was only once daily, this was changed to twice daily especially given continued hypertension, clonidine also changed to 3 times daily for better control -09/01: BP variable, did get down to systolic in 120s yesterday but increased again, will need to continue to work on adjusting medications, did just have increasing clonidine tomorrow, can consider further adjustments tomorrow if patient remains hypertensive Chronic medical problems: # Patient with noted history of COPD -Continue nebs #HX CAD/PAD/CVA -Continue home beta-joel and Plavix and statin # History of seizure disorder -Patient on Tegretol #Chronic BPH with obstruction -Continue home medications #Tobacco use -Advise cessation -Nicotine replacement available if desired #Depression/anxiety -Continue home medications #GERD -Continue PPI # Diarrhea?resolved -Unclear etiology -Stool studies ordered -Respiratory panel ordered and is negative -08/27: Has not had any significant diarrhea, had 1 formed bowel movement earlier today, diarrhea resolved # Anemia -08/27: Hemoglobin 12.8, was 14.2 on presentation, no noted ongoing blood loss but will check FOBT. Will also repeat in this afternoon to verify no further drop. Will continue Plavix for now given no vital instability or overt bleeding low threshold to hold if needed. Will change Lovenox to SCDs -08/28: Hemoglobin overall stable, no further workup at this time -08/29: Hemoglobin still stable, will not need to presently pursue any further workup #DVT ppx: SCDs Celia Toribio MD
--- NOTE | 2024-09-02 14:49 | PCM.TXEXTCAR ---
Diet Diet Order/Speech Therapy: 08/25/24 19:21 Diet: Cardiac - Heart Healthy Food consistency:: Regular Liquid Consistency:: Regular/Thin DC O2, CPAP, BIPAP needs Home O2 Discharge instructions: No Problem/Diagnosis (1) Weakness: Status: Acute Code(s): R53.1 - Weakness (2) Acute diarrhea: Status: Acute Code(s): R19.7 - Diarrhea, unspecified Plan # Generalized weakness/debility/failure to thrive -Patient recently had been at [facility] and was discharged 08/20/2024 but has been having diarrhea since that time -May be due to diarrhea but cannot say definitively, checking UA -PT/OT -08/27: UA ordered, yet to be collected, will follow-up, continue to work with physical therapy, case management social work following -08/28: Patient now agreeable to placement, placement avenues been pursued -08/29: Patient pending acceptance and pre-CERT for [facility], patient stable and will be cleared for discharge once antibiotic and DC plan in place -08/30: Awaiting [facility] and [facility] determinations about payee so that patient can be placed at [facility], further dispo pending this -08/31: Patient accepted and pre-CERT pending -09/01: Patient requires placement, still awaiting insurance authorization # Urinary tract infection?ESBL E. coli UTI -08/28: UA suggestive of UTI and urine culture positive for gram-negative rods, awaiting culture and sensitivity data, this may have contributed to some of patient's symptoms, patient will still benefit from placement -08/29: Patient growing ESBL E. coli, infectious disease consulted -08/30: Continue patient on Zosyn, ID consult pending -08/31: Patient transitioned to Macrobid, ID note reviewed -09/01: Tolerating Macrobid, continuing biotics and supportive care # Hypoxia, patient supposed to be on 3 L as needed at home-now mild COPD exacerbation -Patient 88% on room air now requiring 2 L of O2 -Chest x-ray with no acute abnormality -COVID and influenza negative, no tachycardia, tachypnea, shortness of breath or other indication that patient may have PE, it is possible there is component of atelectasis, incentive spirometer -Patient on nebs -No wheezing or other indication for IV steroids or that patient is having COPD exacerbation -08/27: Patient on nebs, per documentation he is supposed to be on 3 L as needed for his COPD, do not think there is an acute superimposed process at this time. He reports his breathing is at baseline, may just need to assess for updated O2 requirements on discharge -08/28: On every evaluation patient has his oxygen off and reports his breathing is at baseline -08/29: This a.m. patient 92% on room air -08/29: Patient presently on room air, continue nebs -08/30: Patient with some increased cough and is having wheezing, seems mild COPD exacerbation, nebs, brief oral steroid course for 5 days and oral azithromycin x 3 days. Encourage incentive spirometer and mobilization. Will swab for COVID and respiratory panel -08/31: Patient adamantly refused respiratory panels, does seem to be doing better on oral steroids and azithromycin, wheezing resolved, will complete course for treatment for mild COPD exacerbation -09/01: Significantly improved, continue azithromycin and prednisone #Hypertension -Continue clonidine, metoprolol, nifedipine, losartan -08/31: Remains hypertensive, metoprolol tartrate was only once daily, this was changed to twice daily especially given continued hypertension, clonidine also changed to 3 times daily for better control -09/01: BP variable, did get down to systolic in 120s yesterday but increased again, will need to continue to work on adjusting medications, did just have increasing clonidine tomorrow, can consider further adjustments tomorrow if patient remains hypertensive Chronic medical problems: # Patient with noted history of COPD -Continue nebs #HX CAD/PAD/CVA -Continue home beta-joel and Plavix and statin # History of seizure disorder -Patient on Tegretol #Chronic BPH with obstruction -Continue home medications #Tobacco use -Advise cessation -Nicotine replacement available if desired #Depression/anxiety -Continue home medications #GERD -Continue PPI # Diarrhea?resolved -Unclear etiology -Stool studies ordered -Respiratory panel ordered and is negative -08/27: Has not had any significant diarrhea, had 1 formed bowel movement earlier today, diarrhea resolved # Anemia -08/27: Hemoglobin 12.8, was 14.2 on presentation, no noted ongoing blood loss but will check FOBT. Will also repeat in this afternoon to verify no further drop. Will continue Plavix for now given no vital instability or overt bleeding low threshold to hold if needed. Will change Lovenox to SCDs -08/28: Hemoglobin overall stable, no further workup at this time -08/29: Hemoglobin still stable, will not need to presently pursue any further workup #DVT ppx: Philippe Toribio MD Allergies/Procedures Done in Hospital Allergies No Known Allergies Allergy (Verified 04/06/24 11:12) Type of Care/Length of Stay Estimated LOS: Convalescent Care Less Than 30 days Type of Care Needed: Skilled Rehab Potential: Good Prognosis: Good Additional Orders/Day of Discharge Day of Discharge: 09/02/24 Dietary and Speech Recommendations Dietitian Recommendations/Changes: Continue Cardiac diet as ordered Monitor for changes in pt nutritional status and make additional rec as indicated Discharge Plan Admission Admit Date/Time: 08/27/24 18:22 Attending Provider: Brody Maynard Primary Care Provider: Daija Douglas Consulting Providers: Lisha Talamantes; Rodrigo Moore; Celia Toribio Discharge Orders/Prescriptions Prescriptions: New clonidine HCl 0.1 mg Tablet 0.1 mg PO TID Qty: 0 0RF Rx Instructions: Hold for heart less than 50 or systolic blood pressure less than 140 mmHg. dextromethorphan-guaifenesin 60-1,200 mg tablet extended release 12 hr 1 tab PO BID 7 Days Qty: 14 0RF nicotine 14 mg/24 hr Patch 24 Hour 14 mg transdermal DAILY 28 Days Qty: 28 0RF prednisone 20 mg Tablet 40 mg PO BREAKFAST 1 Days Qty: 2 0RF Rx Instructions: For 1 more day tomorrow 09/03/2024 Continued albuterol sulfate 90 mcg/actuation HFA aerosol inhaler 1 puff inhalation Q8H carbamazepine 200 mg tablet extended release 12 hr 200 mg PO Q12H guaifenesin 100 mg/5 mL liquid 200 mg PO Q4H PRN (Reason: congestion) sertraline 100 mg tablet 100 mg PO DAILY cholecalciferol (vitamin D3) 50 mcg (2,000 unit) tablet 50 mcg PO DAILY tamsulosin 0.4 MG capsule 0.4 mg PO QHS Patient Comments: Prostate and urine finasteride 5 MG tablet 5 mg PO DAILY Patient Comments: prostate atorvastatin 40 MG tablet 40 mg PO QHS Patient Comments: CHOLESTEROL mirtazapine 15 MG tablet 15 mg PO QHS clopidogrel 75 MG tablet 75 mg PO DAILY losartan 100 mg tablet 100 mg PO DAILY pantoprazole 40 mg tablet,delayed release (DR/EC) 40 mg PO DAILY nifedipine 90 mg tablet extended release 90 mg PO DAILY alendronate 70 mg tablet 70 mg PO QWEEK Qty: 1 0RF metoprolol tartrate 25 mg tablet 25 mg PO DAILY sennosides-docusate sodium [Stool Softener-Stimulant Laxat] 8.6-50 mg Tablet 2 tab PO BID PRN PRN (Reason: Constipation) Qty: 0 0RF acetaminophen 500 mg Tablet 1,000 mg PO Q8 30 Days Qty: 0 0RF ergocalciferol (vitamin D2) [Vitamin D2] 1,250 mcg (50,000 unit) Capsule 1,250 mcg PO Q7D Qty: 0 0RF Discontinued clonidine HCl 0.1 mg tablet 0.1 mg PO BID Referrals / Follow Up: Daija Douglas MD [Primary Care Provider] - Disposition Disposition (needs filled in before D/C Order can be placed): [facility] Facility
--- NOTE | 2024-09-02 14:59 | DS.PCM_ITS ---
Providers Date of Admission: 08/27/24 Date of Discharge: 09/02/24 Primary Care Physician: Dr. Daija Douglas MD Consultations 08/29/24 11:06 Consult: Infectious Disease Routine Consulting Provider: Rodrigo Moore Reason for Consult: ESBL UTI, pending placement acceptance EMERGENT Consult: No MD Notified: Yes Date Notified: 08/29/24 Time Notified: 11:09 Method of Notification: Text Reason For Visit: FAILURE TO THRIVE Diagnosis Discharge Diagnosis (1) Weakness: Status: Acute Code(s): R53.1 - Weakness (2) Acute diarrhea: Status: Acute Code(s): R19.7 - Diarrhea, unspecified Plan This is 74-year-old gentleman was admitted with recurrent diarrhea, generalized weakness after recent discharge from [facility]. Patient was found to have UTI, ESBL E. coli. He also has mild COPD exacerbation. # Generalized weakness/debility/failure to thrive -Patient recently had been at [facility] and was discharged 08/20/2024 but has been having diarrhea since that time -May be due to diarrhea but cannot say definitively, checking UA -PT/OT -08/27: UA ordered, yet to be collected, will follow-up, continue to work with physical therapy, case management social work following -08/28: Patient now agreeable to placement, placement avenues been pursued -08/29: Patient pending acceptance and pre-CERT for [facility], patient stable and will be cleared for discharge once antibiotic and DC plan in place -08/30: Awaiting [facility] and [facility] determinations about payee so that patient can be placed at [facility], further dispo pending this -08/31: Patient accepted and pre-CERT pending -09/01: Patient requires placement, still awaiting insurance authorization 09/02: Pre-CERT authorized therefore being discharged to SNF. # Urinary tract infection?ESBL E. coli UTI -08/28: UA suggestive of UTI and urine culture positive for gram-negative rods, awaiting culture and sensitivity data, this may have contributed to some of patient's symptoms, patient will still benefit from placement -08/29: Patient growing ESBL E. coli, infectious disease consulted -08/30: Continue patient on Zosyn, ID consult pending -08/31: Patient transitioned to Macrobid, ID note reviewed -09/01: Tolerating Macrobid, continuing biotics and supportive care 09/02: ID follow-up appreciated. Discharge after 1 dose of fosfomycin 3 g oral. # Hypoxia, patient supposed to be on 3 L as needed at home-now mild COPD exacerbation -Patient 88% on room air now requiring 2 L of O2 -Chest x-ray with no acute abnormality -COVID and influenza negative, no tachycardia, tachypnea, shortness of breath or other indication that patient may have PE, it is possible there is component of atelectasis, incentive spirometer -Patient on nebs -No wheezing or other indication for IV steroids or that patient is having COPD exacerbation -08/27: Patient on nebs, per documentation he is supposed to be on 3 L as needed for his COPD, do not think there is an acute superimposed process at this time. He reports his breathing is at baseline, may just need to assess for updated O2 requirements on discharge -08/28: On every evaluation patient has his oxygen off and reports his breathing is at baseline -08/29: This a.m. patient 92% on room air -08/29: Patient presently on room air, continue nebs -08/30: Patient with some increased cough and is having wheezing, seems mild COPD exacerbation, nebs, brief oral steroid course for 5 days and oral azithromycin x 3 days. Encourage incentive spirometer and mobilization. Will swab for COVID and respiratory panel -08/31: Patient adamantly refused respiratory panels, does seem to be doing better on oral steroids and azithromycin, wheezing resolved, will complete course for treatment for mild COPD exacerbation -09/01: Significantly improved, continue azithromycin and prednisone 09/02: Patient complained of mild cough. Patient had different rounds of antibiotics including ceftriaxone, azithromycin and Zosyn. Discussed with ID. Initially though ordered regimen but patient is being discharged today therefore 1 dose of 3 g of fosfomycin ordered. #Hypertension -Continue clonidine, metoprolol, nifedipine, losartan -08/31: Remains hypertensive, metoprolol tartrate was only once daily, this was changed to twice daily especially given continued hypertension, clonidine also changed to 3 times daily for better control -09/01: BP variable, did get down to systolic in 120s yesterday but increased again, will need to continue to work on adjusting medications, did just have increasing clonidine tomorrow, can consider further adjustments tomorrow if patient remains hypertensive 09/02: Blood pressure is controlled Chronic medical problems: # Patient with noted history of COPD -Continue nebs #HX CAD/PAD/CVA -Continue home beta-joel and Plavix and statin # History of seizure disorder -Patient on Tegretol #Chronic BPH with obstruction -Continue home medications #Tobacco use -Advise cessation -Nicotine replacement available if desired #Depression/anxiety -Continue home medications #GERD -Continue PPI # Diarrhea?resolved -Unclear etiology -Stool studies ordered -Respiratory panel ordered and is negative -08/27: Has not had any significant diarrhea, had 1 formed bowel movement earlier today, diarrhea resolved # Anemia -08/27: Hemoglobin 12.8, was 14.2 on presentation, no noted ongoing blood loss but will check FOBT. Will also repeat in this afternoon to verify no further drop. Will continue Plavix for now given no vital instability or overt bleeding low threshold to hold if needed. Will change Lovenox to SCDs -08/28: Hemoglobin overall stable, no further workup at this time -08/29: Hemoglobin still stable, will not need to presently pursue any further workup #[facility] [place] medication reconciliation done. Discharge follow-up instructions completed. Discharge process discussed with the patient and all questions were answered to patient's satisfaction. Follow with PCP in 1 to 2 weeks Total time spent, exact 35 minutes on discharge meds reconciliation, examination, coordination of care with nurses and ancillary staff, review of imaging and blood test and discussion with the patient on follow-up instructions. Medications at Discharge Home Medications tamsulosin 0.4 mg capsule 0.4 mg PO QHS bph 01/26/14 finasteride 5 mg tablet 5 mg PO DAILY prostate 11/14/14 atorvastatin 40 mg tablet 40 mg PO QHS Cholesterol 09/23/15 mirtazapine 15 mg tablet 15 mg PO QHS anti depressant 08/16/19 clopidogrel 75 mg tablet 75 mg PO DAILY blood thinner 10/25/19 losartan 100 mg tablet 100 mg PO DAILY Blood pressure 08/19/21 pantoprazole 40 mg tablet,delayed release 40 mg PO DAILY GERD 08/19/21 nifedipine 90 mg tablet,extended release 90 mg PO DAILY blood pressure 11/25/21 alendronate 70 mg tablet 70 mg PO QWEEK #1 TAB 11/30/21 metoprolol tartrate 25 mg tablet 25 mg PO DAILY Blood pressure 03/30/23 sennosides 8.6 mg-docusate sodium 50 mg tablet (Stool Softener-Stimulant Laxative) 2 tab PO BID PRN PRN Constipation #0 tabs 04/04/23 acetaminophen 500 mg tablet 1,000 mg (2 x 500 mg) PO Q8 30 days #0 tabs 07/26/23 albuterol sulfate 90 mcg/actuation aerosol inhaler 1 puff inhalation Q8H 08/22/23 carbamazepine 200 mg tablet,extended release,12 hr 200 mg PO Q12H 08/22/23 cholecalciferol (vitamin D3) 50 mcg (2,000 unit) tablet 50 mcg PO DAILY 08/22/23 guaifenesin 100 mg/5 mL oral liquid 200 mg PO Q4H PRN congestion 08/22/23 sertraline 100 mg tablet 100 mg PO DAILY 08/22/23 ergocalciferol (vitamin D2) 1,250 mcg (50,000 unit) capsule (Vitamin D2) 1,250 mcg PO Q7D #0 caps 04/10/24 clonidine HCl 0.1 mg tablet 0.1 mg PO TID #0 tabs 09/02/24 dextromethorphan-guaifenesin ER 60 mg-1,200 mg tab,extend release,12hr 1 tab PO BID 7 days #14 tabs 09/02/24 nicotine 14 mg/24 hr daily transdermal patch 14 mg transdermal DAILY 28 days #28 ea 09/02/24 prednisone 20 mg tablet 40 mg (2 x 20 mg) PO BREAKFAST 1 day #2 tabs 09/02/24 Physical Exam Narrative Seen and examined Patient complained of mild cough.. ESBL E. coli on urine culture. Patient changes the topic during history taking. Physical exam General: Alert, Oriented x3, Cooperative HEENT: Atraumatic, PERRLA, EOMI, Normocephalic Oral: No Gingival or Mucosal Lesions/ Ulcerations Neck: Supple, No JVD, Negative Carotid Bruits Chest wall/Lungs: Air entry diminished in bilateral lung bases. No crepitation/rhonchi Cardiovascular: Regular rate, Regular Rhythm, Normal S1, Normal S2, No M/G/R Abdomen: Bowel Sounds Present, Soft, Non Tender, Non-Distended : No dysuria. No renal angle tenderness. No suprapubic tenderness. Extremities: No edema, Capillary Refill Less than 3 Seconds Skin: No rashes, No breakdown Musculoskeletal: No Tenderness to Palpation of Joints or Extremities. Muscle strength 4+/5 at knees and hip joints. Numbness of the left leg, chronic. Neurological: Cranial nerves II-XII grossly intact, DTR 2+/4. No acute focal neurological deficit. Psych/Mental Status: Flat affect Weight / BMI Weight Weight: 150 lb 9.211 oz Body Mass Index (BMI) 22.8 ABG / Lab / Microbiology Data 09/01/24 05:26 09/02/24 05:22 Laboratory: Laboratory Results - last 24 hr 09/02/24 05:22: Sodium 138, Potassium 4.0, Chloride 106, Carbon Dioxide 20.8 L, Anion Gap 11, BUN 33 H, Creatinine 1.22 H, Estim Creat Clear Calc 50.54, Est GFR (MDRD) Non-Af 62, BUN/Creatinine Ratio 27.0 H, Glucose 99, Calcium 9.2 Microbiology: Microbiology 08/27/24 12:25 Urine, Clean Catch Urine Culture - Preliminary ESBL Escherichia coli 08/26/24 10:09 Mucosa - Nasopharyngeal Respiratory Panel (PCR) - Final 08/26/24 10:20 Nasal Secretion SARS-CoV-2 Antigen (Rapid) - Final D/C Instructions DC O2, CPAP, BIPAP Needs Home O2 Discharge instructions: No Meaningful Use Info Meaningful Use Meaningful Use Diagnoses (Choose all that apply): None applicable Ischemic Stroke Statin Dosing Therapy Reference: STATIN DOSE THERAPY REFERENCE: * Patients > 75 years receive moderate or high dose statin therapy. * Patients 75 years or YOUNGER should receive HIGH intensity statin dose unless contraindicated. You will be required to document reason for non-treatment if statin daily dose does not meet guidelines. HIGH DOSE STATIN THERAPY DAILY Atorvastatin > than or = to 40 mg Rosuvastatin > than or = to 20 mg Amlodipine + Atorvastatin > than or = to 2.5/40 mg Ezetimibe + Simvastatin 10/80 mg Simvastatin 80mg Discharge Plan Admission Admit Date/Time: 08/27/24 18:22 Attending Provider: Brody Maynard Primary Care Provider: Daija Douglas Consulting Providers: Lisha Talamantes; Rodrigo Moore; Celia Toribio Discharge Orders/Prescriptions Prescriptions: New clonidine HCl 0.1 mg Tablet 0.1 mg PO TID Qty: 0 0RF Rx Instructions: Hold for heart less than 50 or systolic blood pressure less than 140 mmHg. dextromethorphan-guaifenesin 60-1,200 mg tablet extended release 12 hr 1 tab PO BID 7 Days Qty: 14 0RF nicotine 14 mg/24 hr Patch 24 Hour 14 mg transdermal DAILY 28 Days Qty: 28 0RF prednisone 20 mg Tablet 40 mg PO BREAKFAST 1 Days Qty: 2 0RF Rx Instructions: For 1 more day tomorrow 09/03/2024 Continued albuterol sulfate 90 mcg/actuation HFA aerosol inhaler 1 puff inhalation Q8H carbamazepine 200 mg tablet extended release 12 hr 200 mg PO Q12H guaifenesin 100 mg/5 mL liquid 200 mg PO Q4H PRN (Reason: congestion) sertraline 100 mg tablet 100 mg PO DAILY cholecalciferol (vitamin D3) 50 mcg (2,000 unit) tablet 50 mcg PO DAILY tamsulosin 0.4 MG capsule 0.4 mg PO QHS Patient Comments: Prostate and urine finasteride 5 MG tablet 5 mg PO DAILY Patient Comments: prostate atorvastatin 40 MG tablet 40 mg PO QHS Patient Comments: CHOLESTEROL mirtazapine 15 MG tablet 15 mg PO QHS clopidogrel 75 MG tablet 75 mg PO DAILY losartan 100 mg tablet 100 mg PO DAILY pantoprazole 40 mg tablet,delayed release (DR/EC) 40 mg PO DAILY nifedipine 90 mg tablet extended release 90 mg PO DAILY alendronate 70 mg tablet 70 mg PO QWEEK Qty: 1 0RF metoprolol tartrate 25 mg tablet 25 mg PO DAILY sennosides-docusate sodium [Stool Softener-Stimulant Laxat] 8.6-50 mg Tablet 2 tab PO BID PRN PRN (Reason: Constipation) Qty: 0 0RF acetaminophen 500 mg Tablet 1,000 mg PO Q8 30 Days Qty: 0 0RF ergocalciferol (vitamin D2) [Vitamin D2] 1,250 mcg (50,000 unit) Capsule 1,250 mcg PO Q7D Qty: 0 0RF Discontinued clonidine HCl 0.1 mg tablet 0.1 mg PO BID Referrals / Follow Up: Daija Douglas MD [Primary Care Provider] - Rodrigo Moore MD [Med Staff - Active Staff] - Within 1 Month (As needed for ESBL UTI) Disposition Disposition (needs filled in before D/C Order can be placed): [facility] Facility Charges/Coding Visit Charges Inpatient E&M: 82591 Disch Hosp >30min
--- NOTE | 2024-09-02 15:07 | PHA.DC.MR.R ---
Pharmacy [place] Med Reconciliation Pharmacy Service has performed discharge medication reconciliation for this patient. The patient's discharge medication list was reviewed for discrepancies and discrepancies were resolved. Medications at Discharge Home Medications tamsulosin 0.4 mg capsule 0.4 mg PO QHS bph 01/26/14 finasteride 5 mg tablet 5 mg PO DAILY prostate 11/14/14 atorvastatin 40 mg tablet 40 mg PO QHS Cholesterol 09/23/15 mirtazapine 15 mg tablet 15 mg PO QHS anti depressant 08/16/19 clopidogrel 75 mg tablet 75 mg PO DAILY blood thinner 10/25/19 losartan 100 mg tablet 100 mg PO DAILY Blood pressure 08/19/21 pantoprazole 40 mg tablet,delayed release 40 mg PO DAILY GERD 08/19/21 nifedipine 90 mg tablet,extended release 90 mg PO DAILY blood pressure 11/25/21 alendronate 70 mg tablet 70 mg PO QWEEK #1 TAB 11/30/21 metoprolol tartrate 25 mg tablet 25 mg PO DAILY Blood pressure 03/30/23 sennosides 8.6 mg-docusate sodium 50 mg tablet (Stool Softener-Stimulant Laxative) 2 tab PO BID PRN PRN Constipation #0 tabs 04/04/23 acetaminophen 500 mg tablet 1,000 mg (2 x 500 mg) PO Q8 30 days #0 tabs 07/26/23 albuterol sulfate 90 mcg/actuation aerosol inhaler 1 puff inhalation Q8H 08/22/23 carbamazepine 200 mg tablet,extended release,12 hr 200 mg PO Q12H 08/22/23 cholecalciferol (vitamin D3) 50 mcg (2,000 unit) tablet 50 mcg PO DAILY 08/22/23 guaifenesin 100 mg/5 mL oral liquid 200 mg PO Q4H PRN congestion 08/22/23 sertraline 100 mg tablet 100 mg PO DAILY 08/22/23 ergocalciferol (vitamin D2) 1,250 mcg (50,000 unit) capsule (Vitamin D2) 1,250 mcg PO Q7D #0 caps 04/10/24 clonidine HCl 0.1 mg tablet 0.1 mg PO TID #0 tabs 09/02/24 dextromethorphan-guaifenesin ER 60 mg-1,200 mg tab,extend release,12hr 1 tab PO BID 7 days #14 tabs 09/02/24 nicotine 14 mg/24 hr daily transdermal patch 14 mg transdermal DAILY 28 days #28 ea 09/02/24 prednisone 20 mg tablet 40 mg (2 x 20 mg) PO BREAKFAST 1 day #2 tabs 09/02/24
--- NOTE | 2024-09-02 15:17 | CASEMGMT ---
Addendum entered by Magalie Vega 09/02/24 16:06: Social Work- SW called JEFFREY Suh, to advise of pt discharge to [facility]. Angeli reports that she will follow up with pt at the facility. NATHANIEL called pt brother, Johnny, to advise of d/c as well. DCA to call Giovana. SHANE Cao Original Note: Social Work Precert has been obtained.? Physician updated and pt is ready for discharge today.? 7000 convalescent form completed in [facility]. DCA notified of discharge. Final arrangements and notifications to be completed by DCA. Disposition:CC, skilled level of care under convalescent stay. SHANE Cao
[2024-09-02] MEDS: guaiFENesin/D-Methorphan TAB.SR.12H 2 TABLET PO ×2 (15:51→20:49)
[2024-09-02] MEDS: FOSFOMYCIN TROMETHAMINE 3 GM PACKET PO (15:52)
--- NOTE | 2024-09-02 16:22 | CASEMGMT ---
Discharge Planning Discharge orders, signed med list, and transport time sent to [facility]. Physicians will transport pt by wheelchair at 7p. Nursing, SW, pt, and his xwife (Giovana) updated. Jacquie Michaud DC Planning
[2024-09-02] MEDS: Atorvastatin Calcium 40 MG Tablet PO (20:47)
[2024-09-02] MEDS: Tamsulosin HCl 0.4 MG Capsule PO (20:47)
[2024-09-02] MEDS: Mirtazapine 15 MG Tablet PO (20:49)
[2024-09-02] MEDS: MELATONIN 10 MG TABLET PO (20:49)
== END 2024-09-02 21:35 | disposition skilled nursing facility (03) | DRG 690 ==
LOC: ED 17:46 → MS3 18:35
PROVIDERS: Internal Medicine; Admitting Provider Internal Medicine; Emergency Provider Emergency Medicine; PCP Internal Medicine; Visit Provider Internal Medicine
DX: N39.0 Urinary tract infection, site not specified (principal); J44.1 Chronic obstructive pulmonary disease with (acute) exacerbation; F02.83 Dementia in other diseases classified elsewhere, unspecified severity, with mood disturbance; F02.84 Dementia in other diseases classified elsewhere, unspecified severity, with anxiety; Z16.12 Extended spectrum beta lactamase (ESBL) resistance; R62.7 Adult failure to thrive; I48.91 Unspecified atrial fibrillation; G30.9 Alzheimer's disease, unspecified; B96.20 Unspecified Escherichia coli [E. coli] as the cause of diseases classified elsewhere; G40.909 Epilepsy, unspecified, not intractable, without status epilepticus; I10 Essential (primary) hypertension; I73.9 Peripheral vascular disease, unspecified; D64.9 Anemia, unspecified; R19.7 Diarrhea, unspecified; E78.00 Pure hypercholesterolemia, unspecified; F17.210 Nicotine dependence, cigarettes, uncomplicated; I25.10 Atherosclerotic heart disease of native coronary artery without angina pectoris; G47.33 Obstructive sleep apnea (adult) (pediatric); K21.9 Gastro-esophageal reflux disease without esophagitis; M79.604 Pain in right leg; M79.605 Pain in left leg; N13.8 Other obstructive and reflux uropathy; R09.02 Hypoxemia; M81.0 Age-related osteoporosis without current pathological fracture; N40.1 Benign prostatic hyperplasia with lower urinary tract symptoms; R53.81 Other malaise; G89.29 Other chronic pain; Z95.5 Presence of coronary angioplasty implant and graft; Z79.02 Long term (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 of antithrombotics/antiplatelets; Z86.73 Personal history of transient ischemic attack (TIA), and cerebral infarction without residual deficits; Z87.19 Personal history of other diseases of the digestive system; Z90.49 Acquired absence of other specified parts of digestive tract; Z79.899 Other long term (current) drug therapy; Z91.148 Patient's other noncompliance with medication regimen for other reason; Z87.81 Personal history of (healed) traumatic fracture; Z68.22 Body mass index [BMI] 22.0-22.9, adult
CPT/HCPCS: 36415; 71045; 80048; 80053; 81001; 83605; 83735; 84100; 85025; 85027; 87077; 87086; 87088; 87186; 87426; 87633; 94640; 94668; 97110; 97116; 97162; 97166; 97530; 97535; 97802; 99285; 99406; J2185; A4216

== ENCOUNTER → 2024-11-05 | Outpatient (REF) | payer MEDICARE, MEDICAID, SELFPAY ==
[2024-11-05 09:06] LABS: Cholesterol 140 mg/dL (<=200); High Density Lipoprotein 64 mg/dL; Low Density Lipoprotein Calc. 63 mg/dL; Triglycerides 63 mg/dL; Very Low Density Lipoprotein 13 mg/dL (5-40); cholesterol:hdl ratio screen 2.18
[2024-11-05 09:58] LABS: Vitamin D,25 Hydroxy 51.2 ng/mL (30-100)
== END ==
LOC: OLS.SW 05:00
PROVIDERS: PCP Internal Medicine; Visit Provider Internal Medicine
DX: E78.5 Hyperlipidemia, unspecified (principal); M81.0 Age-related osteoporosis without current pathological fracture
CPT/HCPCS: 36415; 80061; 82306

== ENCOUNTER → 2024-12-02 05:00 | Outpatient (REF) | payer MEDICARE, MEDICAID, SELFPAY ==
[2024-12-02 09:29] LABS: Hematocrit 35.2 % (40-54); Hemoglobin 11.1 g/dL (13.0-16.5); Mean Corp Hgb Conc 31.5 g/dL (32-36); Mean Corpuscular Hgb 28.6 pg (27.0-32.0); Mean Corpuscular Volume 90.7 fL (80-94); Mean Platelet Vol. 10.2 fl (6.2-12.0); Platelet Count 314 K/mm3 (150-450); RBC Distribution Width CV 13.2 % (11.6-14.6); RBC Distribution Width SD 43.6 fl (35.1-43.9); Red Blood Count 3.88 M/mm3 (4.6-6.2); White Blood Count 5.1 K/mm3 (4.4-11.0)
[2024-12-02 10:05] LABS: Anion Gap 11 (5-15); BUN 28 mg/dL (4-19); BUN/Creat Ratio 23.5 RATIO (10-20); Calcium,Total 9.4 mg/dL (7.6-11.0); Carbon Dioxide 25.5 mmol/L (21.0-32.0); Chloride 104 mmol/L (98-108); Creatinine, Serum 1.21 mg/dL (0.70-1.20); EST Glomerular Filtration Rate 62 (>60); Glucose 86 mg/dL (70-99); Potassium 4.1 mmol/L (3.3-5.1); Sodium Level 141 mmol/L (133-145); Vitamin D,25 Hydroxy 46.6 ng/mL (30-100)
== END ==
LOC: OLS.SW 05:00
PROVIDERS: PCP Internal Medicine; Visit Provider Internal Medicine
DX: Z79.899 Other long term (current) drug therapy (principal)
CPT/HCPCS: 36415; 80048; 82306; 85027

== ENCOUNTER 2024-12-13 17:45 | Inpatient (IN) | payer MEDICARE, MEDICAID, SELFPAY ==
[2024-12-13] VITALS (12 sets, daily range): BP systolic 185–226; BP diastolic 72–95; PULSE 63–80; RESP 17–30; TEMP 36.4–36.8; O2SAT 94–100; BMI 24.3; BMI 23.6
--- NOTE | 2024-12-13 18:02 | ED.VIS.DYS ---
HPI History of Present Illness Chief Complaint: Shortness of Breath Detail of Chief Complaint: Shortness of breath Informant: patient Narrative Narrative: Patient presents with shortness of breath has been somewhat chronic but worse today. Daughter states that he has been pretty noncompliant with his breathing treatments and nebulizer. Patient has history of COPD and gets frequent exacerbations. Normally is on 2 L of O2 and the visiting nurse today put him on 4 L. Complains of a cough with productive sputum. He denies fevers. Denies chest pain. Patient has history of A-fib and is currently on Coumadin. Recently returned home from being in a fpc for a time 1 week ago. [facility] Medical History Compression fx, lumbar spine Hypertension Falls Hypertension Closed fracture of right superior pubic ramus Multiple falls Compression fracture of thoracic vertebra History of atrial fibrillation Iron deficiency anemia Chronic respiratory failure with hypoxia Osteoporosis Lumbar compression fracture Compression fracture Obstructive sleep apnea Hyperlipidemia Asthma Peripheral arterial occlusive disease Seizure disorder Chronic obstructive pulmonary disease Coronary artery disease Lupus anticoagulant disorder BPH (benign prostatic hyperplasia) Ulcerative colitis Peripheral vascular disease Anxiety COPD (chronic obstructive pulmonary disease) with emphysema Closed fracture of right inferior pubic ramus Acute UTI COPD (chronic obstructive pulmonary disease) UTI (urinary tract infection) Depression Diabetes Kidney stones Chronic pain Pancreatitis On home oxygen therapy Irregular heart beat Atrial fibrillation Stroke/cerebrovascular accident Smoker Falls frequently Seizures Sleep apnea COPD (chronic obstructive pulmonary disease) Asthma High cholesterol Tobacco abuse Home Medications ?Medication ?Instructions ?Recorded ?Last Taken ?Type tamsulosin 0.4 mg capsule 0.4 mg PO QHS bph 01/26/14 03/28/23 History finasteride 5 mg tablet 5 mg PO DAILY prostate 11/14/14 03/28/23 History atorvastatin 40 mg tablet 40 mg PO QHS Cholesterol 09/23/15 03/28/23 History mirtazapine 15 mg tablet 15 mg PO QHS anti depressant 08/16/19 03/28/23 History clopidogrel 75 mg tablet 75 mg PO DAILY blood thinner 10/25/19 03/28/23 History losartan 100 mg tablet 100 mg PO DAILY Blood pressure 08/19/21 03/28/23 History pantoprazole 40 mg tablet,delayed 40 mg PO DAILY GERD 08/19/21 03/28/23 History release nifedipine 90 mg tablet,extended 90 mg PO DAILY blood pressure 11/25/21 03/28/23 History release alendronate 70 mg tablet 70 mg PO QWEEK #1 TAB 11/30/21 03/28/23 Rx metoprolol tartrate 25 mg tablet 25 mg PO DAILY Blood pressure 03/30/23 03/28/23 History sennosides 8.6 mg-docusate sodium 2 tab PO BID PRN PRN Constipation 04/04/23 Unknown Rx 50 mg tablet (Stool #0 tabs Softener-Stimulant Laxative) acetaminophen 500 mg tablet 1,000 mg (2 x 500 mg) PO Q8 30 07/26/23 Unknown Rx days #0 tabs albuterol sulfate 90 mcg/actuation 1 puff inhalation Q8H 08/22/23 Unknown History aerosol inhaler carbamazepine 200 mg 200 mg PO Q12H 08/22/23 Unknown History tablet,extended release,12 hr cholecalciferol (vitamin D3) 50 50 mcg PO DAILY 08/22/23 Unknown History mcg (2,000 unit) tablet guaifenesin 100 mg/5 mL oral liquid 200 mg PO Q4H PRN congestion 08/22/23 Unknown History sertraline 100 mg tablet 100 mg PO DAILY 08/22/23 Unknown History ergocalciferol (vitamin D2) 1,250 1,250 mcg PO Q7D #0 caps 04/10/24 Unknown Rx mcg (50,000 unit) capsule (Vitamin D2) clonidine HCl 0.1 mg tablet 0.1 mg PO TID #0 tabs 09/02/24 Unknown Rx dextromethorphan-guaifenesin ER 60 1 tab PO BID 7 days #14 tabs 09/02/24 Unknown Rx mg-1,200 mg tab,extend release,12hr nicotine 14 mg/24 hr daily 14 mg transdermal DAILY 28 days 09/02/24 Unknown Rx transdermal patch #28 ea prednisone 20 mg tablet 40 mg (2 x 20 mg) PO BREAKFAST 1 09/02/24 Unknown Rx day #2 tabs Allergy/AdvReac Type Severity Reaction Status Date / Time No Known Allergies Allergy Verified 04/06/24 11:12 Family History Other Heart disease Surgical History S/P arterial stent History of appendectomy Social History (Updated 08/25/24 @ 18:[address] 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 Smoking Status: Current some day smoker tobacco type: cigarettes alcohol intake: former details: Former alcoholic quit several years ago substance use type: does not use caffeine: Yes Type: coffee Number of servings: 3 ROS ROS ED Review of Systems ROS Unobtainable: other Constitutional Constitutional ED: Reports lethargy; Denies chills, fever(s), sweats or weight loss Eyes Eyes: Denies blurry vision, change in vision or diplopia ENT ENT ED: Denies rhinorrhea or sore throat Cardiovascular Cardiovascular: Denies chest pain, orthopnea or racing heartbeat Respiratory/Chest Respiratory/Chest: Reports cough, dyspnea, dyspnea on exertion and sputum; Denies orthopnea Gastrointestinal Gastrointestinal: Denies abdominal pain, diarrhea, nausea or vomiting Genitourinary Genitourinary ED: Denies dysuria, hematuria or urinary frequency Musculoskeletal Musculoskeletal: Denies arthralgias, back pain, myalgias or neck pain Integumentary Denies abscess, Abrasions or rash Neurologic Neurologic: Denies headache(s) or weakness Psychiatric Psychiatric: Denies anxiety, depression or suicidal thoughts Endocrine Endocrinology: Denies polydipsia, polyphagia or polyuria Hematologic/Lymphatic Hematologic/Lymphatic: Denies easy bleeding, easy bruising or lymphadenopathy Allergic/Immunologic Allergic/Immunologic ED: Denies mouth swelling, tongue swelling or urticaria EXAM Physical Exam Const Vital Signs: 12/13/24 17:46 12/13/24 17:49 12/13/24 18:10 Temperature 98.3 F Temperature Source Temporal Pulse Rate 65 Respiratory Rate 22 H Respiratory Effort Short of Breath Respiratory Depth Shallow Respiratory Pattern Tachypnea Blood Pressure 226/90 H Blood Pressure Mean 135 Pulse Ox 100 100 Oxygen Delivery Method Room Air Nasal Cannula Nasal Cannula Oxygen Flow Rate (L/min) 3 3.5 12/13/24 18:10 12/13/24 18:46 12/13/24 18:48 Temperature 97.8 F Temperature Source Temporal Pulse Rate 63 80 79 Respiratory Rate 24 H 27 H 30 H Respiratory Effort Respiratory Depth Respiratory Pattern Tachypnea Blood Pressure 212/84 H 212/84 H Blood Pressure Mean 126 126 Pulse Ox 100 99 Oxygen Delivery Method Nasal Cannula Room Air Oxygen Flow Rate (L/min) 12/13/24 19:00 Temperature 97.9 F Temperature Source Temporal Pulse Rate 72 Respiratory Rate 22 H Respiratory Effort Respiratory Depth Respiratory Pattern Blood Pressure 185/72 H Blood Pressure Mean 109 Pulse Ox 98 Oxygen Delivery Method Nasal Cannula Oxygen Flow Rate (L/min) Positive well nourished and well developed General Appearance ED: well developed and NAD HEENT Reports TM's clear and moist mucous membranes normocephalic and atraumatic; Negative for trauma or tenderness Tympanic Membrane ED: Yes TM's clear Eyes PERRL and EOMs intact bilaterally General Eye ED: Negative for pale conjunctiva or scleral icterus Neck no lymphadenopathy, supple and no JVD General: Negative for tenderness Chest Wall inspection of chest normal and palpation of chest normal Chest: Negative for tenderness Resp No normal respiratory effort and No clear to auscultation bilaterally Resp Narrative: Mild tachypnea with expiratory wheezes throughout. Somewhat diminished breath sounds bilaterally. No accessory muscle use or retractions. Effort and Inspection: Negative for respiratory distress or pain with movement Auscultation: wheezes; Negative for rhonchi or diminished lung sounds Cardio regular rate, regular rhythm, S1 normal heart sound, S2 normal heart sound and no murmurs Peripheral Pulses: pulses 2+ throughout GI normal to inspection, nondistended, normoactive bowel sounds, soft to palpation, non-tender, non-distended and no masses Back/Spine no CVA tenderness and no thoracic nor lumbar tenderness Extremity normal to inspection General Extremety ED: Negative for edema General Extremity: Negative for edema Neuro oriented x3, CN's II-XII intact bilaterally, no sensory deficits noted and gait normal Sensorium / Orientation: awake, alert, oriented to person, oriented to place and oriented to time Motor Exam: strength 5/5 throughout and strength abnormal Psych mental status grossly normal Skin no rashes or lesions noted and no wounds MDM MDM MDM Narrative Medical decision making narrative: Patient presents with increased dyspnea. History of COPD normally on 2 L and today was bumped up to 4 L by visiting nurse. Per daughter is not always compliant with his medications and oxygen. He denies any chest pain. EKG obtained arrival shows sinus rhythm with regular rate of 67 bpm with first-degree AV block. CBC with differential shows a white count 5.9 with hemoglobin 11.5 and platelet count 299. Chemistries unremarkable. 1 view chest x-ray obtained was unremarkable. Lab Data Attestation: I reviewed the patient's lab results. Labs: Laboratory Results - last 24 hr 12/13/24 18:26 WBC 5.9 RBC 4.15 L Hgb 11.5 L Hct 37.5 L MCV 90.4 MCH 27.7 MCHC 30.7 L RDW Std Deviation 44.8 H RDW Coeff of Aly 13.7 Plt Count 299 MPV 9.7 Immature Gran % (Auto) 0.300 Neut % (Auto) 67.3 Lymph % (Auto) 19.5 [place] % (Auto) 8.9 Eos % (Auto) 3.0 Baso % (Auto) 1.0 Absolute Neuts (auto) 4.0 Absolute Lymphs (auto) 1.16 Nucleated RBC % 0 PT 12.5 INR 0.9 Sodium 141 Potassium 3.7 Chloride 104 Carbon Dioxide 24.4 Anion Gap 13 BUN 12 Creatinine 1.11 Estim Creat Clear Calc 55.63 Est GFR (MDRD) Non-Af 69 BUN/Creatinine Ratio 11.0 Glucose 102 H Calcium 9.7 Radiography Diagnostic Testing: Clinical Impression(s) from Imaging Studies Chest X-Ray 12/13/24 18:39 IMPRESSION: No significant change since last exam. Reading Location: [facility] 1 view chest x-ray obtained interpreted by myself as no evidence of infiltrate or pneumothorax or acute disease process. Radiology in agreement. EKG Initial EKG: Attestation: I personally reviewed and interpreted this EKG as follows: Comments: Sinus rhythm with ventricular rate of 67 bpm with first-degree AV block Discharge Plan Triage Chief Complaint: Shortness of Breath ED Provider: Charis Walker Dx/Rx/DC Orders Clinical Impression: COPD exacerbation, Dyspnea, Hypertension Prescriptions: No Action albuterol sulfate 90 mcg/actuation HFA aerosol inhaler 1 puff inhalation Q8H carbamazepine 200 mg tablet extended release 12 hr 200 mg PO Q12H guaifenesin 100 mg/5 mL liquid 200 mg PO Q4H PRN (Reason: congestion) sertraline 100 mg tablet 100 mg PO DAILY cholecalciferol (vitamin D3) 50 mcg (2,000 unit) tablet 50 mcg PO DAILY tamsulosin 0.4 MG capsule 0.4 mg PO QHS Patient Comments: Prostate and urine finasteride 5 MG tablet 5 mg PO DAILY Patient Comments: prostate atorvastatin 40 MG tablet 40 mg PO QHS Patient Comments: CHOLESTEROL mirtazapine 15 MG tablet 15 mg PO QHS clopidogrel 75 MG tablet 75 mg PO DAILY losartan 100 mg tablet 100 mg PO DAILY pantoprazole 40 mg tablet,delayed release (DR/EC) 40 mg PO DAILY nifedipine 90 mg tablet extended release 90 mg PO DAILY alendronate 70 mg tablet 70 mg PO QWEEK Qty: 1 0RF metoprolol tartrate 25 mg tablet 25 mg PO DAILY sennosides-docusate sodium [Stool Softener-Stimulant Laxat] 8.6-50 mg Tablet 2 tab PO BID PRN PRN (Reason: Constipation) Qty: 0 0RF acetaminophen 500 mg Tablet 1,000 mg PO Q8 30 Days Qty: 0 0RF ergocalciferol (vitamin D2) [Vitamin D2] 1,250 mcg (50,000 unit) Capsule 1,250 mcg PO Q7D Qty: 0 0RF clonidine HCl 0.1 mg Tablet 0.1 mg PO TID Qty: 0 0RF Rx Instructions: Hold for heart less than 50 or systolic blood pressure less than 140 mmHg. dextromethorphan-guaifenesin 60-1,200 mg tablet extended release 12 hr 1 tab PO BID 7 Days Qty: 14 0RF nicotine 14 mg/24 hr Patch 24 Hour 14 mg transdermal DAILY 28 Days Qty: 28 0RF prednisone 20 mg Tablet 40 mg PO BREAKFAST 1 Days Qty: 2 0RF Rx Instructions: For 1 more day tomorrow 09/03/2024 Primary Care Provider: Daija Douglas Referrals: Daija Douglas MD [Primary Care Provider] - Print Language: Honduran Disposition Disposition: Acute Care Hospital [facility]
[2024-12-13] MEDS: Albuterol 2.5 MG/3 ML VIAL.NEB. INHALATION ×3 (18:09→18:12)
[2024-12-13] MEDS: Ipratropium/Albuterol Sulfate 3 ML AMPUL.NEB INHALATION (18:09)
[2024-12-13] MEDS: MethylPREDNISolone 125 MG/2 ML Vial IV (18:30)
[2024-12-13 18:38] LABS: Absolute Lymphocyte Count 1.16 X10^3/uL (0.83-4.51); Basophil# 0.06 X10^3/uL; Eosinophil# 0.18 X10^3/uL; Hematocrit 37.5 % (40-54); Hemoglobin 11.5 g/dL (13.0-16.5); Lymphocyte # 1.16 X10^3/ul (0.83-4.51); Lymphocyte % 19.5 % (19-41); Mean Corp Hgb Conc 30.7 g/dL (32-36); Mean Corpuscular Hgb 27.7 pg (27.0-32.0); Mean Corpuscular Volume 90.4 fL (80-94); Mean Platelet Vol. 9.7 fl (6.2-12.0); Monocyte# 0.53 X10^3/uL; Monocyte% 8.9 % (0-10); NRBC Flagged by Analyzer 0 % (0-5); Neutrophil # 3.99 X10^3/uL (2.7-7.7); Neutrophil % 67.3 % (47-70); Platelet Count 299 K/mm3 (150-450); RBC Distribution Width CV 13.7 % (11.6-14.6); RBC Distribution Width SD 44.8 fl (35.1-43.9); Red Blood Count 4.15 M/mm3 (4.6-6.2); White Blood Count 5.9 K/mm3 (4.4-11.0)
--- NOTE | 2024-12-13 18:39 | RAD_ITS ---
PROCEDURE: CHEST 1 VIEW (PORTABLE) 12/13/2024 REASON FOR EXAM: DYSPNEA TECHNIQUE: Frontal view of the chest. COMPARISON: Chest radiograph 08/25/2024. FINDINGS: The patient is slightly rotated. Hardware: None. Heart: The heart size is normal. Lungs: Persistent findings of emphysema. No focal consolidation, pleural effusion or pneumothorax. Bones: Degenerative changes are identified within the thoracic spine. RAD/Chest 1 View (Portable) IMPRESSION: No significant change since last exam. Reading Location: [id number]
[2024-12-13 19:01] LABS: Anion Gap 13 (5-15); BUN 12 mg/dL (4-19); Calcium,Total 9.7 mg/dL (7.6-11.0); Carbon Dioxide 24.4 mmol/L (21.0-32.0); Chloride 104 mmol/L (98-108); Creatinine, Serum 1.11 mg/dL (0.70-1.20); EST Glomerular Filtration Rate 69 (>60); Estimated Creatinine Clearance 55.63 ml/min (50-250); Glucose 102 mg/dL (70-99); Potassium 3.7 mmol/L (3.3-5.1); Sodium Level 141 mmol/L (133-145)
[2024-12-13 19:29] LABS: International Normalized Ratio 0.9; Prothrombin Time (Protime)PT. 12.5 SECONDS (11.7-14.9)
--- NOTE | 2024-12-13 19:49 | PCM.HP.STD ---
HPI - General General Date of Admission: 12/13/24 Date of Service: 12/13/24 Chief Complaint: Dyspnea, wheezing. HPI Narrative The patient is a 74 y/o M w/ PMHx: Former EtOH abuse, PAD s/p peripheral PCI, PAF reporting that he is on chronic Coumadin therapy, HTN, HLD, Chronic anemia/Fe deficiency anemia, COPD/Asthma w/ Chronic Hypoxic Respiratory Failure (2L NC), Seizure disorder, CKD stage III unclear subtype or GFR trending, GERD, BPH with obstructive pathology, Anxiety and depression, PJ, Tobacco use who presents to the [facility] ED on 12/13/2024 with history of worsening dyspnea over the last 40 hours with increasing fatigue, malaise, severe wheezing and tightness normally on 2 L oxygen supplementation however today visiting nurse presented and evaluated him with noted increased hypoxia prompting increase up to 4 L with complaint of cough occasionally productive with no fevers or chills prompting referral to the ED to be cautious. Workup in the ED included T90.3, heart rate 65, BP initially 226/90, respiratory rate 22, initially under percent on room air transiently requiring 3.5 L nasal cannula noted to be at 100% on room air, most recent repeat vitals T97.9 Temporal, heart rate 72, BP 185/72, respiratory rate 22, 98% on supplemental oxygen, CBC with WBC 5.9, hemoglobin 0.5, MCV 90.4, platelet 299 without marked shift, INR 0.9, BMP with glucose 102 otherwise unremarkable, BUN/creatinine 12/1.11, GFR 69, chest x-ray with persistent COPD type changes with no acute cardiopulmonary findings, rapid SARS COVID/influenza/RSV PCR negative. In the ED patient administered DuoNeb therapy and Solu-Medrol 125 mg IV x 1. Blood culture x 2 pending per ED. given appearance in the ED with increased work of breathing ongoing, significant tightness, wheezing and evidence of some respiratory distress component requested ABG and will trial BiPAP. [facility] Medical History Weakness Debility Failure to thrive Compression fx, lumbar spine Hypertension Falls Hypertension Closed fracture of right superior pubic ramus Multiple falls Compression fracture of thoracic vertebra History of atrial fibrillation Iron deficiency anemia Chronic respiratory failure with hypoxia Osteoporosis Lumbar compression fracture Compression fracture Obstructive sleep apnea Hyperlipidemia Asthma Peripheral arterial occlusive disease Seizure disorder Chronic obstructive pulmonary disease Coronary artery disease Lupus anticoagulant disorder BPH (benign prostatic hyperplasia) Ulcerative colitis Peripheral vascular disease Anxiety COPD (chronic obstructive pulmonary disease) with emphysema Closed fracture of right inferior pubic ramus Acute UTI COPD (chronic obstructive pulmonary disease) UTI (urinary tract infection) Depression Diabetes Kidney stones Chronic pain Pancreatitis On home oxygen therapy Irregular heart beat Atrial fibrillation Stroke/cerebrovascular accident Smoker Falls frequently Seizures Sleep apnea COPD (chronic obstructive pulmonary disease) Asthma High cholesterol Tobacco abuse Home Medications ?Medication ?Instructions ?Recorded ?Last Taken ?Type tamsulosin 0.4 mg capsule 0.4 mg PO QHS bph 01/26/14 03/28/23 History finasteride 5 mg tablet 5 mg PO DAILY prostate 11/14/14 03/28/23 History atorvastatin 40 mg tablet 40 mg PO QHS Cholesterol 09/23/15 03/28/23 History mirtazapine 15 mg tablet 15 mg PO QHS anti depressant 08/16/19 03/28/23 History clopidogrel 75 mg tablet 75 mg PO DAILY blood thinner 10/25/19 03/28/23 History losartan 100 mg tablet 100 mg PO DAILY Blood pressure 08/19/21 03/28/23 History pantoprazole 40 mg tablet,delayed 40 mg PO DAILY GERD 08/19/21 03/28/23 History release nifedipine 90 mg tablet,extended 90 mg PO DAILY blood pressure 11/25/21 03/28/23 History release alendronate 70 mg tablet 70 mg PO QWEEK OSTEOPROSIS #1 TAB 11/30/21 03/28/23 Rx metoprolol tartrate 25 mg tablet 25 mg PO DAILY Blood pressure 03/30/23 03/28/23 History sennosides 8.6 mg-docusate sodium 2 tab PO BID PRN PRN Constipation 04/04/23 Unknown Rx 50 mg tablet (Stool #0 tabs Softener-Stimulant Laxative) albuterol sulfate 90 mcg/actuation 1 puff inhalation Q8H SOB 08/22/23 Unknown History aerosol inhaler carbamazepine 200 mg 200 mg PO Q12H SEIZURES 08/22/23 Unknown History tablet,extended release,12 hr cholecalciferol (vitamin D3) 50 50 mcg PO DAILY SUPPLEMENT 08/22/23 Unknown History mcg (2,000 unit) tablet sertraline 100 mg tablet 100 mg PO DAILY DEPRESSION 08/22/23 Unknown History ergocalciferol (vitamin D2) 1,250 1,250 mcg PO Q7D SUPPLEMENT #0 caps 04/10/24 Unknown Rx mcg (50,000 unit) capsule (Vitamin D2) clonidine HCl 0.1 mg tablet 0.1 mg PO TID HTN #0 tabs 09/02/24 Unknown Rx dextromethorphan-guaifenesin ER 60 1 tab PO BID COUGH 7 days #14 tabs 09/02/24 Unknown Rx mg-1,200 mg tab,extend release,12hr nicotine 14 mg/24 hr daily 14 mg transdermal DAILY NICOTINE 09/02/24 Unknown Rx transdermal patch 28 days #28 ea prednisone 20 mg tablet 40 mg (2 x 20 mg) PO BREAKFAST 1 09/02/24 Unknown Rx day #2 tabs acetaminophen 500 mg tablet 1,000 mg PO Q8 PRN fever or pain 12/13/24 Unknown History albuterol sulfate 2.5 mg/3 mL 2.5 mg continuous nebulization 12/13/24 12/13/24 History (0.083 %) solution for nebulization DAILY SHORTNESS OF BREATH clonidine 0.2 mg/24 hr weekly 1 patch topical QWEEK BLOOD 12/13/24 Unknown History transdermal patch PRESSURE gabapentin 100 mg capsule 100 mg PO DAILY PAIN 12/13/24 Unknown History Allergy/AdvReac Type Severity Reaction Status Date / Time No Known Allergies Allergy Verified 04/06/24 11:12 Family History (Updated 12/13/24 @ 20:[address] Shilpa Contreras MD) Mother Heart disease CVA (cerebral vascular accident) Hypertension Father Heart disease CVA (cerebral vascular accident) Hypertension Surgical History S/P arterial stent History of appendectomy Social History (Updated 12/13/24 @ 20:[address] 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 HEENT: Eyes: No visual loss, blurred vision, double vision or yellow sclerae. Ears, Nose, Throat: No hearing loss, sneezing, congestion, runny nose or sore throat. SKIN: No rash or itching, lesions, wounds except + occasional stage ecchymoses, abrasions. CARDIOVASCULAR: No chest pain, chest pressure or chest discomfort, palpitations, edema, orthopnea, syncopal events. RESPIRATORY: + Dyspnea, chest tightness, productive cough intermittently, wheezing. No hemoptysis. GASTROINTESTINAL: + Lack of appetite/anorexia. No nausea, vomiting or diarrhea, abdominal pain, melena, BRBPR. GENITOURINARY: No dysuria, frequency, urgency or retention. NEUROLOGICAL: + Seizure disorder. No headache, dizziness, syncope, paralysis, ataxia, numbness or tingling in the extremities, focal weakness, change in bowel or bladder control. MUSCULOSKELETAL: + muscle, back pain, joint pain or stiffness. HEMATOLOGIC: + Chronic anemia, easy bleeding/bruising. LYMPHATICS: No enlarged nodes. No history of splenectomy. PSYCHIATRIC: + History of anxiety and depression. ENDOCRINOLOGIC: No reports of sweating, cold or heat intolerance. No polyuria or polydipsia. ALLERGIES: + History of asthma. Vital Signs Vital Signs Vital Signs: 12/13/24 17:46 12/13/24 17:49 12/13/24 18:10 Temperature 98.3 F Temperature Source Temporal Pulse Rate 65 Respiratory Rate 22 H Respiratory Effort Short of Breath Respiratory Depth Shallow Respiratory Pattern Tachypnea Blood Pressure 226/90 H Blood Pressure Mean 135 Pulse Ox 100 100 Oxygen Delivery Method Room Air Nasal Cannula Nasal Cannula Oxygen Flow Rate (L/min) 3 3.5 12/13/24 18:10 12/13/24 18:46 12/13/24 18:48 Temperature 97.8 F Temperature Source Temporal Pulse Rate 63 80 79 Respiratory Rate 24 H 27 H 30 H Respiratory Effort Respiratory Depth Respiratory Pattern Tachypnea Blood Pressure 212/84 H 212/84 H Blood Pressure Mean 126 126 Pulse Ox 100 99 Oxygen Delivery Method Nasal Cannula Room Air Oxygen Flow Rate (L/min) 12/13/24 19:00 Temperature 97.9 F Temperature Source Temporal Pulse Rate 72 Respiratory Rate 22 H Respiratory Effort Respiratory Depth Respiratory Pattern Blood Pressure 185/72 H Blood Pressure Mean 109 Pulse Ox 98 Oxygen Delivery Method Nasal Cannula Oxygen Flow Rate (L/min) Weight Weight: 160 lb 0.889 oz Body Mass Index (BMI) 24.3 Physical Exam Narrative Physical Examination: General: Awake, alert, oriented x 3 and cooperative, seated upright in ED bed, some conversational dyspnea noted, accessory muscle usage, evidence of respiratory distress. Skin: Normal color, normal turgor, no icterus, no cyanosis except occasional stage ecchymoses, abrasion. HEENT: AT/NC, EOMI with right pupil atypical size/shape, dry MM, no carotid bruits or JVD noted. Lungs: Severely diminished, tight, greater bases, soft end expiratory wheezing, increased work of breathing evident, accessory muscle usage evident, respiratory distress evident, no obvious rhonchi or rales. Heart: Regular rate and rhythm; no gallop, rub audible. Abdomen: Soft, NTTP, ND, mildly distant normal BS, no appreciated HSM. Extremities: No cyanosis, no clubbing, no significant distal edema noted. Neurological: Patient awake, alert, oriented as noted, cognitive function intact; pupils equally reactive to light and accommodation, cranial nerves grossly normal with as noted right pupil atypical size/shape, moving all 4 extremities, no focal deficits, strength severely globally decreased secondary to acute presentation with respiratory distress per Psychiatric: Affect appears fatigued, evident respiratory distress as noted, no acute evidence of depressive or anxiety feelings but does have underlying history. Results Lab / Micro Data 12/13/24 18:26 12/13/24 18:26 Labs: Laboratory Results - last 24 hr 12/13/24 18:26: WBC 5.9, RBC 4.15 L, Hgb 11.5 L, Hct 37.5 L, MCV 90.4, MCH 27.7, MCHC 30.7 L, RDW Std Deviation 44.8 H, RDW Coeff of Aly 13.7, Plt Count 299, MPV 9.7, Immature Gran % (Auto) 0.300, Neut % (Auto) 67.3, Lymph % (Auto) 19.5, Alfalfa % (Auto) 8.9, Eos % (Auto) 3.0, Baso % (Auto) 1.0, Absolute Neuts (auto) 4.0, Absolute Lymphs (auto) 1.16, Nucleated RBC % 0, PT 12.5, INR 0.9, Sodium 141, Potassium 3.7, Chloride 104, Carbon Dioxide 24.4, Anion Gap 13, BUN 12, Creatinine 1.11, Estim Creat Clear Calc 55.63, Est GFR (MDRD) Non-Af 69, BUN/Creatinine Ratio 11.0, Glucose 102 H, Calcium 9.7 Micro: Microbiology 12/13/24 18:26 Mucosa - Nose SARS-CoV-2, Influenza & RSV (PCR) - Final Imaging Radiology Impression Chest X-Ray 12/13/24 18:39 IMPRESSION: No significant change since last exam. Reading Location: [facility] Assessment & Plan Assessment/Plan (1) COPD exacerbation: PLAN: Plan The patient is a 74 y/o M w/ PMHx: Former EtOH abuse, PAD s/p peripheral PCI, PAF reporting that he is on chronic Coumadin therapy, HTN, HLD, Chronic anemia/Fe deficiency anemia, COPD/Asthma w/ Chronic Hypoxic Respiratory Failure (2L NC), Seizure disorder, CKD stage III unclear subtype or GFR trending, GERD, BPH with obstructive pathology, Anxiety and depression, PJ, Tobacco use who presents to the [facility] ED on 12/13/2024 with history of worsening dyspnea over the last 40 hours with increasing fatigue, malaise, severe wheezing and tightness normally on 2 L oxygen supplementation however today visiting nurse presented and evaluated him with noted increased hypoxia prompting increase up to 4 L with complaint of cough occasionally productive with no fevers or chills prompting referral to the ED to be cautious. #1. Acute on Chronic Hypoxic Respiratory Failure secondary to Acute on Chronic COPD/Asthma exacerbation: Will admit to PCU given planned BiPAP usage, will obtain ABG, once able to transition off BiPAP will wean oxygen as tolerated to home supplementation level previously noted at 2 L, will maintain on ATC duonebs, PRN albuterol, IV methylprednisolone, HOB, IS parameters, will obtain sputum Cx, respiratory viral panel, procalcitonin, will hold on immediately abx therapy but low threshold to add if appropriate. #2. Hypertension, uncontrolled suspected secondary to #1 possibly missing some of his medication on day of presentation: Continue home regimen including clonidine, losartan, metoprolol, nifedipine, PRN hydralazine. #3. Chronic Kidney Disease Stage II per GFR trending: Admission BUN/Cr 12/1.11, GFR 69, baseline renal function 1.1-1.2, repeat BMP in AM. #4. Chronic normocytic anemia/iron deficient anemia: Hemoglobin 0.5, MCV 90.4, baseline hemoglobin noted to vacillate however does range 11-12 but has previously also been in the 13-14 range, most recently 12/02/2024 hemoglobin 11.1, continue to trend. #5. PAF: Will continue patient home metoprolol regimen, noted that he is on Coumadin but clarified to be certain his INR is 0.9, we will continue to trend. #6. Hyperlipidemia: Will continue patient on statin therapy. #7. Anxiety and depression: Will continue patient home sertraline and mirtazapine home regimen #8. BPH with obstructive pathology: Will continue patient on Flomax and finasteride regimen, monitor for retention. #9. GERD: Will continue patient on PPI. #10. Seizure disorder: Continue home carbamazepine regimen. #11. Tobacco Abuse: Encouraged cessation, inpatient consultation per RT, NR if desired. #12. PJ: Noncompliant with PAP therapy, ABG requested, trialing BIPAP as noted. #13. PAD: Will continue patient's Plavix, statin, hypertensive regimen as noted, clarifying is he stating that he is on Coumadin but his INR is subtherapeutic. #14. Former alcohol abuse: Encourage continued sobriety. #15. DVT prophylaxis: Will continue Coumadin with INR trending however suspect patient has been noncompliant as INR upon presentation is 0.9. #16. 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 Discussed CODE status at length including difference between FULL code, DNR-CCA and DNR-CC status. Following discussions about the differences in these status, requested Full Code status. Advanced Care Planning Face to Face Time: 16 minutes. Charges/Coding Visit Charges Inpatient E&M: 23594 Init Hosp L3 Procedures Hospitalists Procedures: 60924 Advncd Care Plan 30 Min
--- OUTSIDE RECORDS SUMMARY | 2024-12-13 20:39 | XMS RPT_ITS | CCD ---
Author Organization [facility] Care Team Providers Care Under Seal Operator Name Role Phone Selene RANDALL, Daija Primary Care Provider Madeline ASSISTANT PASTRY CHEF, Beatriz Unavailable Unavailab johnson Morton MD, Daija Unavailable 13, Pharmacist Unavailable Artemio RN, Lizette Unavailable [phone] Dr. Daija Morton Primary Care Provider Dr. Jaden Toribio Referring Provider Dr. Jaden Toribio Other Provider Dr. Soto Trujillo Attending Provider Dr. Micky Good Emergency Provider Dr. Cornelius Andrews Attending Provider Dr. Joi Osuna Referring Provider Dr. Dominguez Campbell Admit Provider Dr. Dominguez Campbell Attending Provider Dr. Dominguez Campbell Other Provider Dr. Irasema Valencia Attending Provider Dr. Dominguez Campbell Referring Provider Dr. Brendan Vallejo Attending Provider Dr. Brendan Vallejo Referring Provider Dr. Joi Osuna Other Provider Dr. Joi Osuna Attending Provider Dr. Brendan Vallejo Other Provider Kaye Ortega MD Unavailable DR DAIJA MORTON MD Primary Care Physician Noemi AHUJA, Fco Unavailable Dr. Daija Morton Primary Care Provider Madeline KIMBLE, Beatriz Unavailable Unavailab Daija Kilpatrick MD Unavailable Mode RANDALL, Ye Unavailable Shania DENISE, Emilie Smart Unavailable Ryan May MD Unavailable Geronimo Medina DO Unavailable Dr. Raul Melchor Emergency Provider Dr. Fran Cartwright Admit Provider Dr. Fran Cartwright Attending Provider Dr. Fran Cartwright Other Provider Dr. Paulino Henderson Attending Provider Dr. Paulino Henderson Other Provider Dr. Brody Maynard Other Provider Dr. Brody Maynard Attending Provider Dr. Ryan Guerin Attending Provider Dr. Ryan Guerin Other Provider Dr. Daija Morton Primary Care Provider Dr. Micky Good Emergency Provider Dr. Dominguez Campbell Admit Provider Dr. Joi Osuna Other Provider Dr. Brendan Vallejo Other Provider Dr. Cornelius Andrews Attending Provider Dr. Joi Osuna Attending Provider Dr. Ryan Guerin Referring Provider Dr. Brody Maynard Attending Provider Dr. Daija Morton Primary Care Provider Daija Morton MD Primary Care Provider 13, Pharmacist Unavailable Raúl RANDALL, Kaye Lyon Unavailable Mode RANDALL, Ye Unavailable Emilie Jauregui PA-C Unavailable Ryan May MD Unavailable Geronimo Medina DO Unavailable Emilie Jauregui PA-C Unavailable Selene RANDALL, Daija Primary Care Provider 13, Pharmacist Unavailable Raúl RANDALL, Kaye Lyon Unavailable Mode RANDALL, Ye Unavailable Emilie Jauregui PA-C Unavailable Ryan May MD Unavailable Geronimo Mednia DO Unavailable Daija Morton MD Primary Care Provider Emilie Jauregui PA-C Unavailable Ryan May MD Unavailable Geronimo Medina DO Unavailable Dr. Daija Morton Primary Care Provider Dr. Huber Alvarado Emergency Provider Dr. Fran Cartwright Admit Provider Dr. Fran Cartwright Attending Provider Dr. Fran Cartwright Other Provider Dr. Celia Toribio Attending Provider Dr. Celia Toribio Other Provider Dr. Frankie Galindo Attending Provider Unavailable Mateo, Dr. aDvid Other Provider Unavailable Oscar, Dr. Wallace Other Provider [phone] Geronimo Medina DO Unavailable Dr. Daija Morton Primary Care Provider Dr. Huber Alvarado Emergency Provider Chay, Dr. Peters Admit Provider Chay, Dr. Peters Attending Provider Chay, Dr. Peters Other Provider Dr. Celia Toribio Attending Provider Dr. Celia Toribio Other Provider Dr. Frankie Galindo Attending Provider Unavailable Mateo, Other Provider Unavailable Oscar, Dr. Wallace Other Provider [phone] SELENE RANDALL, DR DAIJA France Primary Care Darby MORTON MD, DR DAIJA France Attending Darby MORTON MD, DR DAIJA France Primary Care Unavailsayra FRANCO MD, DR PRIYANKA Alatorre Attending Unavailable Dr. Raul Melchor Emergency Provider Dr. Андрей Cooley Attending Provider Dr. Daija Morton Primary Care Provider Dr. Huber Alvarado Emergency Provider Dr. Fran Cartwright Admit Provider Dr. Fran Cartwright Other Provider Dr. Frankie Galindo Attending Provider Unavailable Mateo, Other Provider Unavailable Catarino, Dr. Yang Other Provider Dr. Elton Moore Other Provider [phone] Dr. Raul Melchor Emergency Provider Dr. Андрей Cooley Attending Provider Dr. Андрей Cooley Admit Provider Dr. Андрей Cooley Other Provider Dr. Roman Patel Attending Provider Dr. Roman Patel Other Provider Dr. Daija Morton Primary Care Provider Dr. Huber Alvarado Emergency Provider Dr. Fran Cartwright Admit Provider Dr. Fran Cartwright Other Provider Dr. Frankie Galindo Attending Provider Unavailable Dr. Frankie Galindo Other Provider Unavailable Dr. Celia Toribio Other Provider Dr. Elton Moore Other Provider Dr. Brody Maynard Admit Provider Dr. Brody Maynard Other Provider Dr. Ryan Guerin Attending Provider Dr. Ryan Guerin Other Provider Selene RANDALL, Daija Primary Care Provider Madeline KIMBLE, Beatriz Smith Unavailable Daija Morton MD Unavailable Noemi AHUJA, Fco Unavailable Selene RANDALL, Dr. Choe Primary Care Provider Dr. Carla Prather MD Attending Provider Unavaila ble Shania RANDALL, Dr. Stanley Emergency Provider Dr. Lisha Talamantes DO Admit Provider Dr. Lisha Talamantes DO Attending Provider Dr. Jaden Jauregui MD Emergency Provider Dr. Lisha Talamantes DO Admit Provider Dr. Lisha Talamantes DO Attending Provider Dr. Lisha Talamantes DO Other Provider Catarino RANDALL, Dr. Yang Attending Provider Catarino RANDALL, Dr. Yang Other Provider Oscar RANDALL, Dr. Wallace Other Provider Caesar RANDALL, Dr. Skinner Attending Provider Caesar RANDALL, Dr. Skinner Other Provider Selene RANDALL, Dr. Choe Primary Care Provider [phone] Yamilka RANDALL, Dr. Aguirre Attending Provider Unavaila ble Lisha Talamantes Admitting Unavailable Albin, Lisha Attending Unavailable Albin, Lisha Consulting Unavailable Ganta, Daija Primary Care Unavailable Celia Toribio Attending Unavailable Celia Toribio Consulting Unavailable Maxi Acevedo Attending Unavailable Ganta, Daija Primary Care Unavailable Ganta, Daija Primary Care Unavailable Gudla KOFFI Carla Attending Unavailable Caesar, Brody Consulting Unavailable Caesar, Brody Admitting Unavailable Raul Merino Attending Unavailable Ganta, Daija Primary Care Unavailable Koram, Kathi Vivian Consulting Unavailable Jb Adler Attending Unavailable Ganta, Daija Primary Care Unavailable Olayinka Cordova Attending Unavailable Ganta, Daija Primary Care Unavailable Ganta, Daija Primary Care Unavailable Gudla Carla RAIN Attending Unavailable Ikea Carla RAIN Attending Unavailable Ganta, Daija Primary Care Unavailable Celia Toribio Attending Unavailable Albin, Lisha Admitting Unavailable Albin, Lisha Consulting Unavailable Ganta, Daija Primary Care Unavailable Elton Moore Consulting Unavailable Celia Toribio Consulting Unavailable Caesar, Brody Attending Unavailable Caesar, Brody Consulting Unavailable Caesar, Brody Attending Unavailable Ganta, Daija Primary Care Unavailable Koram, Kathi Vivian Attending Unavailable Caesar, Brody Consulting Unavailable Caesar, Brody Admitting Unavailable Koram, Kathi Vivian Consulting Unavailable Caesar, Brody Admitting Unavailable Caesar, Brody Consulting Unavailable Raul Merino Attending Unavailable Ganta, Daija Primary Care Unavailable Koram, Kathi Vivian Consulting Unavailable Angelique Raul Consulting Unavailable Gudla KOFFI, Carla Attending Unavailable Ganta, Daija Primary Care Unavailable Ganta, Daija Primary Care Unavailable Gudla KOFFI, Carla Attending Unavailable Ganta, Adija Primary Care Unavailable Aris Dixon Attending Unavailable Caesar, Brody Attending Unavailable Albin, Lisha Admitting Unavailable Albin, Lisha Consulting Unavailable Ganta, Daija Primary Care Unavailable Elton Moore Consulting Unavailable Toribio, Celia Consulting Unavailable 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 Diagnosis: Pulmonary emphysema, unspecified emphysema type (HCC) [J43.9] 1 Each 03/27/2019 Active Start: 03-27-2019 >Nebulizer For Home Indications: Pulmonary emphysema, unspecified emphysema type (HCC) Nebulizer for home use. Diagnosis: Pulmonary emphysema, unspecified emphysema type (HCC) [J43.9] 1 Each 0 03/27/2019 Active Comment on above: Nebulizer for home u se. Diagnosis: Pulmonary emphysema, unspecified emphysema type (HCC) [J43.9] acetaminophen 500 mg oral tablet (20 sources) Start: 07-26-19 take 2 tablets by mouth every eight hours Acetaminophen 500 mg Tablet Active 1000 mg PO EVERY 8 HOURS 0 July 26, 2023 1:00am Start: 11-30-2021 End: 07-26-2023 take 1-10 tablets by mouth every six hours as needed for pain Acetaminophen (Tylenol) 325 mg Tablet Discontinued 650 mg PO EVERY 6 HOURS NEEDED as needed for Pain 1-10 Or Fever 0 November 30, 2021 12:00am July 26, 2023 1:12pm Start: 11-30-2021 End: 07-26-2023 albuterol 0.83 mg/ml inhalation solution (20 sources) beta2-Adrenergic Agonist Start: 12-12-2024 albuterol (PROVENTIL ) 2.5 mg /3 mL (0.083 %) nebulizer solution Indications: Other emphysema (HCC) , Wheezing , On home oxygen therapy Use 3 mL via nebulizer every 4 hours as needed for wheezing/shortness of breath. 90 mL 5 12/12/2024 Active Start: 11-21-2023 End: 01-23-2024 albuterol (PROVENTIL) 2.5 mg /3 mL (0.083 %) nebulizer solution Indications: COPD with chronic bronchitis (HCC) , Other emphysema (HCC) Use 3 mL via nebulizer every 4 hours as needed for wheezing/shortness of breath. Use over 5-15minutes. 120 mL 1 11/21/2023 01/23/2024 Discontinued Start: 08-22-2023 Albuterol Sulf ate 90 mcg/actuation HFA aerosol inhaler Active 1 NMA INHALATION Q8H August 22, 2023 1:00am Start: 06-08-2023 End: 01-23-2024 take 2 puff(s) by inhalation every four hours as needed for wheezing albuterol HFA (VENTOLIN HFA) 90 mcg/actuation inhaler Indications: Other emphysema (HCC) Inhale 2 Puffs as instructed every 4 hours as needed for wheezing/shortness of breath. 1 Each 5 01/23/2024 Active Start: 03-30-2023 End: 08-02-2023 Albuterol Sulfate 90 mcg/act uation HFA aerosol inhaler Discontinued 1 NMA INHALATION Q8H March 30, 2023 12:00am August 02, 2023 5:08pm Start: 03-30-2023 End: 08-02-2023 Start: 03-30-2023 take 1 puff(s) by in halation every eight hours Albuterol Sulfate Active 1 PUFF INHALATION Q8H March 29, 2023 11:00pm Start: 02-04-2022 End: 08-27-2022 take 2 puff(s) by inhalation every four hours as needed for wheezing albuterol HFA (VENTOLIN HFA) 90 mcg/actuation inhaler Inhale 2 Puffs as instructed every 4 hours as needed for wheezing/shortness of breath. 1 Each 5 08/27/2022 Active Start: 08-02-2021 End: 01-14-2022 take 2 puff(s) by inhalation every four hours as needed albuterol HFA (VENTOLIN HFA) 90 mcg/actuation inhaler Indications: COPD with chronic bronchitis (HCC) Inhale 2 Puffs as instructed every 4 hours as needed. 18 g 3 01/14/2022 Active Start: 09-29-2020 End: 05-05-2021 albuterol HFA (VENTOLIN HFA) 90 mcg/actuation inhaler Indications: COPD with chronic bronchitis (HCC) [The details of the medication are not available because there are pending changes by a home health clinician.] 18 g 3 09/29/2020 05/05/2021 Discontinued Start: 10-28-2018 End: 03-30-2023 take 2.5 mg by inhalation every four hours as needed for wheezing Albuterol Sulfate 2.5 MG/3 ML solution for nebulization Discontinued 2.5 mg INHALATION EVERY 4 HOURS NEEDED as needed for sob/wheezing August 12, 2020 1:00am March 30, 2023 7:44pm Start: 12-02-2015 End: 12-07-2015 take 1 puff(s) by inhalation every four hours as needed Albuterol Sulfate (Proair Hfa (Sp)Vent Pts) 1 PUFF inhaler Discontinued 2 NMA INHALATION EVERY 4 HOURS NEEDED as needed for Shortness Of Breath December 02, 2015 12:00am December 07, 2015 10:01am Start: 12-02-2015 End: 12-07-2015 Start: 12-02-2015 End: 12-07-2015 take 1 puff(s) by inhalation every four hours as needed Albuterol Sulfate (Proair Hfa (Sp)Vent Pts) 1 PUFF inhaler Discontinued 2 PUFF INHALATION EVERY 4 HOURS NEEDED December 01, 2015 11:00pm December 07, 2015 9:01am Start: 01-26-2014 End: 08-12-2020 take 1 puff(s) by inhalation every four hours as needed Albuterol Sulfate (Ventolin Hfa) 1 INHALER inhaler Discontinued 2 PUFF INHALATION EVERY 4 HOURS NEEDED January 26, 2014 9:01pm August 12, 2020 4:28pm Start: 01-26-2014 End: 08-12-2020 Albuterol Sulfate (Ventolin Hfa) 1 INHALER inhaler Discontinued 2 NMA INHALATION EVERY 4 HOURS NEEDED as needed for Shortness Of Breath January 26, 2014 12:00am August 12, 2020 4:28pm Start: 01-26-2014 End: 08-12-2020 Start: 01-26-2014 End: 08-12-2020 take 1 puff(s) by inhalation every four hours as needed Albuterol Sulfate (Ventolin Hfa) 1 INHALER inhaler Discontinued 2 PUFF INHALATION EVERY 4 HOURS NEEDED January 25, 2014 11:00pm August 12, 2020 3:28pm Start: 03-21-2013 End: 07-24-2013 Albuterol Sulfate (Ventolin Hfa) 1 INHALER inhaler Discontinued 2 EVERY 4 HOURS NEEDED March 21, 2013 11:35pm July 24, 2013 5:25am Start: 03-21-2013 End: 07-24-2013 Albuterol Sulfate (Ventolin Hfa) 1 INHALER inhaler Discontinued 2 EVERY 4 HOURS NEEDED as needed for BREATHING March 21, 2013 12:00am July 24, 2013 5:25am Start: 03-21-2013 End: 07-24-2013 Albuterol Sulfate (Ventolin Hfa) 1 INHALER inhaler Discontinued 2 EVERY 4 HOURS NEEDED March 20, 2013 11:00pm July 24, 2013 4:25am Start: 03-21-2013 End: 07-24-2013 Albuterol Sulfate (Ventolin Hfa) 1 INHALER inhaler Discontinued 2 EVERY 4 HOURS NEEDED March 21, 2013 12:00am July 24, 2013 5:25am Start: 03-20-2013 End: 05-23-2013 Albuterol Sulfate (Ventolin Hfa) 1 INHALER inhaler Discontinued 1 March 20, 2013 6:18pm May 23, 2013 5:28pm Start: 03-20-2013 End: 05-23-2013 Albuterol Sulfate (Ventolin Hfa) 1 INHALER inhaler Discontinued March 19, 2013 11:00pm May 23, 2013 4:28pm Start: 03-20-2013 End: 05-23-2013 Albuterol Sulfate (Ventolin Hfa) 1 INHALER inhaler Discontinued March 20, 2013 12:00am May 23, 2013 5:28pm Comment on above: Inhale 2 Puffs as in structed every 4 hours as needed. Inhale 2 Puffs as in structed every 4 hours as needed for wheezing/shortness of breath. albuterol 0.833 mg/ml / ipratropium bromide 0.167 mg/ml inhalation solution (20 sources) Anticholinergic, beta2-Adrenergic Agonist Start: 3 End: 4 take 3 mL by inhalation every six hours as needed for wheezing ipratropium-albute rol (DUONEB) 0.5 mg-3 mg(2.5 mg base)/3 mL nebu Indications: Other emphysema (HCC) Inhale 3 mL as instructed every 6 hours as needed for wheezing/shortness of breath. 120 mL 5 11/21/2023 Active Start: 11-30-2021 End: 03-30-2023 take 1 mL by inhalation four times daily Ipratropium-Albuterol 0.5 mg-3 mg(2.5 mg base)/3 mL Solution For Nebulization Discontinued 3 mL INHALATION 4 times daily 3 November 30, 2021 12:00am March 30, 2023 7:44pm Start: 11-30-2021 End: 03-30-2023 take 1 mL by inhalation four times daily Ipratropium-Albuterol Discontinued 3 ML INHALATION 4 times daily 3 November 29, 2021 11:00pm March 30, 2023 6:44pm Start: 10-25-2019 End: 11-30-2021 take 1 mL by inhalation every six hours as needed for wheezing Ipratropium-Albuterol 3 ML solution for nebulization Discontinued 3 mL inhalation EVERY 6 HOURS as needed for Wheezing October 25, 2019 12:00am August 12, 2020 4:28pm Start: 10-25-2019 End: 03-30-2023 Start: 04-11-2018 End: 05-30-2023 take 1 mL by inhalation every six hours Ipratropium-Albuterol 3 ML solution for nebulization Discontinued 3 mL INHALATION EVERY 6 HOURS WHILE AWAKE August 19, 2021 3:15pm November 30, 2021 11:33am Comment on above: Inhale 3 mL as instr ucted every 6 hours as needed for wheezing/shortness of breath. alendronic acid 70 mg oral tablet (20 sources) Bisphosphonate Start: 11-26-19 End: 12-01-19 take 1 tablet by mouth every week Alendronate 70 mg tablet Active 70 mg PO EVERY WEEK November 30, 2021 11:39am Start: 11-25-2021 End: 11-30-2021 Alendronate Discontinued MG PO November 24, 2021 11:00pm November 30, 2021 10:39am Start: 10-19-2020 End: 10-21-2021 take 1 tablet by mouth every week alendronate (FOSAMAX) 70 mg tablet Take 1 tablet by mouth one time a week. 4 tablet 11 10/19/2020 08/13/2021 Discontinued Comment on above: Take 1 tablet by jorge th one time a week. atorvastatin 40 mg oral tablet (20 sources) HMG-CoA Reductase Inhibitor Start: 09-23-19 16 End: 01-23-20 take 1 tablet by mouth once daily atorvastatin (LIPITOR) 40 mg tablet Indications: Mixed hyperlipidemia Take 1 tablet by mouth once daily. 30 tablet 5 01/23/2024 Active Comment on above: Take 1 tablet by jorge th once daily. budesonide 0.25 mg/ml inhalation suspension (20 sources) Corticosteroid Start: 06-06-20 End: 03-12-20 budesonide (PULMICORT) 0.5 mg/2 mL nebulizer solution Indications: COPD with chronic bronchitis (HCC) Use 2 mL via nebulizer two times a day. 120 mL 5 03/12/2024 Active Start: 04-05-2021 End: 02-02-2022 budesonide (PULMICORT) 0.5 m g/2 mL nebulizer solution Indications: COPD with chronic bronchitis (HCC) Use 2 mL via nebulizer twice daily. 60 mL 5 10/07/2021 02/02/2022 Discontinued (Discontinued by Patient) Comment on above: Use 2 mL via nebuliz er twice daily. Use 2 mL via nebuliz er two times a day. 12 hr carBAMazepine 200 mg extended release oral tablet (20 sources) Mood Stabilizer Start: take 1 tablet by mouth every twelve hours Carbamazepine 200 mg tablet extended release 12 hr Active 200 mg PO Q12H August 22, 2023 1:00am Start: 06-08-2023 End: 01-23-2024 take 1 tablet by mouth twice daily carBAMazepine XR (TEGRETOL XR) 200 mg 12 hr tablet Indications: Left leg pain Take 1 tablet by mouth two times a day. 60 tablet 5 01/23/2024 Active Start: 03-28-2023 take 1 tablet by jorge th twice daily carBAMazepine XR (TEGRETOL XR) 200 mg 12 hr tablet Take 1 tablet by mouth two times a day. 56 tablet 2 03/28/2023 Active Start: 12-21-2022 take 1 tablet by jorge th twice daily carBAMazepine XR (TEGRETOL XR) 200 mg 12 hr tablet Take 1 tablet by mouth twice daily. 56 tablet 2 12/21/2022 Active Start: 02-04-2022 take 1 tablet by jorge th twice daily carBAMazepine XR (TEGRETOL XR) 200 mg 12 hr tablet Take 1 tablet by mouth twice daily. 56 tablet 5 02/04/2022 Active Start: 10-20-2020 End: 10-07-2021 take 1 tablet by mouth twice daily carBAMazepine XR (TEGRETOL XR) 200 mg 12 hr tablet Take 1 tablet by mouth twice daily. 56 tablet 5 10/07/2021 Active Start: 09-09-2014 End: 10-26-2019 take 1 tablet by mouth twice daily at mealtime Carbamazepine 200 MG tablet Discontinued 200 mg PO TWICE DAILY WITH MEALS 60 September 09, 2014 12:00am October 26, 2019 12:04am Start: 09-09-2014 End: 08-22-2023 take 1 tablet by mouth every twelve hours Carbamazepine 200 MG tablet Discontinued 200 mg PO Q12H October 26, 2019 12:04am August 22, 2023 11:17am Comment on above: Take 1 tablet by jorge th twice daily. Take 1 tablet by jorge two times a day. cephalexin 500 mg oral capsule (17 sources) Cephalosporin Antibacterial Start: End: take 1 capsule by mouth three times daily cephALEXin (KEFLEX) 500 mg capsule Indications: Urinary tract infection without hematuria, site unspecified Take 1 capsule by mouth three times a day for 7 days. 21 capsule 03/23/2024 03/30/2024 Active Start: 10-21-2022 End: 02-17-2023 take 1 capsule by mouth every six hours Cephalexin 500 mg capsule Discontinued 500 mg PO EVERY 6 HOURS 28 7 October 21, 2022 12:00am February 17, 2023 11:06pm Start: 10-08-2021 take 500 mg by mouth three times daily Cephalexin Active 500 MG PO THREE TIMES A DAY October 08, 2021 5:03pm cholecalciferol 0.05 mg oral tablet (3 sources) Vitamin D Start: 08-22-2023 take 1 tablet by mouth once daily Cholecalciferol (Vitamin D3) 50 mcg (2,000 unit) tablet Active 50 ug PO DAILY August 22, 2023 1:00am 168 hr cloNIDine 0.43006 mg/hr transdermal system (10 sources) Central alpha-2 Adrenergic Agonist Start: 12-12-2024 cloNIDine TTS (CATAPRES-TTS) 0.2 mg/24 hr Apply 1 patch as directed one time a week. 4 patch 1 12/12/2024 Active Start: 09-02-2024 Clonidine Hcl 0.1 mg Tablet Active 0.1 mg PO THREE TIMES A DAY 0 September 02, 2024 12:00am Hold for heart less than 50 or systolic blood pressure less than 140 mmHg. Start: 08-22-2023 End: 09-02-2024 take 1 tablet by mouth twice daily Clonidine Hcl 0.1 mg tablet Discontinued 0.1 mg PO TWICE A DAY August 22, 2023 1:00am September 02, 2024 2:54pm clopidogrel 75 mg oral tablet (20 sources) [id number] Platelet Inhibitor Start: 10-25-2019 End: 01-23-2024 take 1 tablet by mouth once daily clopidogrel (PLAVIX) 75 mg tablet Indications: Coronary artery disease involving jena coronary artery of jena heart without angina pectoris , Peripheral arterial disease Take 1 tablet by mouth once daily. 30 tablet 5 01/23/2024 Active Comment on above: Take 1 tablet by jorge once daily. 12 hr dextromethorphan hydrobromide 60 mg / guaiFENesin 1200 mg extended release oral tablet (6 sources) Uncompetitive Y-cjaahc-C-aspartat e Receptor Antagonist, Sigma-1 Agonist Start: 09-02-2024 Dextromethorphan- Guaifenesin 60-1,200 mg tablet extended release 12 hr Active 1 {tbl} PO TWICE A DAY 14 7 September 02, 2024 12:00am Start: 08-02-2023 End: 08-22-2023 take 1 mL by mouth every six hours as needed for cough Dextromethorphan-Guaifenesin 10-100 mg/5 mL Syrup Discontinued 10 mL PO EVERY 6 HOURS NEEDED as needed for COUGH 0 August 02, 2023 1:00am August 22, 2023 11:44am Start: 08-02-2023 dicyclomine hydrochloride 10 mg oral capsule (20 sources) Anticholinergic Start: 10-22-2022 End: 10-29-2022 dicyclomine 10 mg oral capsule Dose : 10 mg = 1 cap(s), Oral, QID, # 28 cap(s), 0 Refill(s) Start Date: 10/22/22 Stop Date: 10/29/22 Status: Ordered Start: 11-13-2017 End: 08-12-2020 take 2 capsules by mouth three times daily before mealtime Dicyclomine 10 MG capsule Discontinued 20 mg PO THREE TIMES DAILY BEFORE MEALS October 26, 2019 12:04am August 12, 2020 4:28pm Start: 11-13-2017 End: 08-12-2020 take 20 mg by mouth three times daily before mealtime Dicyclomine Discontinued 20 MG PO THREE TIMES DAILY BEFORE MEALS October 25, 2019 11:04pm August 12, 2020 3:28pm Start: 03-05-2016 End: 09-13-2021 take 1 tablet by mouth three times daily at mealtime dicyclomine (BENTYL) 20 mg tablet Take 1 tablet by mouth three times daily with meals. 270 tablet 3 01/29/2020 02/01/2021 Discontinued Start: 11-14-2014 End: 09-29-2015 take 2 capsules by mouth three times daily Dicyclomine Hcl 10 MG capsule Discontinued 20 mg PO THREE TIMES A DAY November 14, 2014 12:00am September 29, 2015 1:01pm Start: 11-14-2014 End: 09-29-2015 Comment on above: Take 1 tablet by jorge three times daily with meals. docusate sodium 50 mg / sennosides, custodial 8.6 mg oral tablet (9 sources) Start: 04-04-2023 Sennosides-Docusate Sodium (Stool Softener-Stimulant Laxat) 8.6-50 mg Tablet Active 2 {tbl} PO TWICE DAILY NEEDED as needed for Constipation 0 April 04, 2023 12:00am Start: 04-04-2023 ergocalciferol 1.25 mg oral capsule (8 sources) Provitamin D2 Compound Start: 12-12-2024 take 1 capsule by mouth every week ergocalciferol 50,000 unit capsule (VITAMIN D2, DRISDOL) Take 1 capsule by mouth one time a week. Use as directed. 4 capsule 5 12/12/2024 Active Start: 04-10-2024 Ergocalciferol (Vitamin D2) (Vitamin D2) 1,250 mcg (50,000 unit) Capsule Active 1250 ug PO Q7D 0 April 10, 2024 12:00am famotidine 20 mg oral tablet (2 sources) Histamine-2 Receptor Antagonist Start: 03-05-2016 Pepcid 20 mg oral tablet Dose : 20 mg = 1 tab(s), Oral, BID, # 180 tab(s) Start Date: 03/05/16 Status: Ordered finasteride 5 mg oral tablet (20 sources) 5-alpha Reductase Inhibitor Start: 11-14-2014 End: 01-23-2024 take 1 tablet by mouth once daily finasteride (PROSCAR) 5 mg tablet Indications: BPH with obstruction/lower urinary tract symptoms Take 1 tablet by mouth once daily. 30 tablet 5 01/23/2024 Active Comment on above: Take 1 tablet by jorge th once daily. fluticasone / salmeterol (20 sources) Corticosteroid, beta2-Adrenergic Agonist Start: 03-05-2016 take 1 dose by inhalation twice daily Advair Diskus 250 mcg-50 mcg inhalation powder Dose = 1 puff(s), Inhalation, BID Start Date: 03/05/16 Status: Ordered Start: 05-24-2013 End: 05-27-2013 take 1 puff(s) by inhalation once daily Fluticasone Propion-Salmeterol (Advair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 Injury of head; 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: [Unspecified injury of head, initial encounter] 03-29-2023 Episodic Other liver diseases (20 sources) Enzyme level - finding; 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: [Elevated transaminase measurement] Episodic Other lower respiratory disease (20 sources) History of chronic obstructive airway disease; 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: [Personal history of other diseases of the respiratory system] 02-05-2022 Episodic Other lower respiratory disease (5 sources) Dyspnea; 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: [Dyspnea, unspecified] 07-30-2023 Episodic Other lower respiratory disease (2 sources) Dyspnea, unspecified; 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: [Other respiratory abnormalities] 07-30-2023 Episodic Other lower respiratory disease (3 sources) Wheezing; 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: [Wheezing] 12-12-2024 Episodic Other nervous system disorders (1 source) Walking disability; 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: [Difficulty in walking, not elsewhere classified] Chronic Other nervous system disorders (10 sources) Unable to walk; 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: [Difficulty in walking, not elsewhere classified] 03-30-2023 Chronic Other nervous system disorders (10 sources) Difficulty in walking, not elsewhere classified; 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: [Difficulty in walking] 03-30-2023 Chronic Other nervous system disorders (5 sources) Metabolic encephalopathy; 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: [Metabolic encephalopathy] 07-30-2023 Chronic Other nervous system disorders (2 sources) Metabolic encephalopathy; 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: [Metabolic encephalopathy] 07-30-2023 Chronic Other nutritional; endocrine; and metabolic disorders (20 sources) H/O: diabetes mellitus; 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: [Personal history of other endocrine, nutritional and metabolic disease] 08-20-2021 Episodic Other nutritional; endocrine; and metabolic disorders (6 sources) Failure to thrive 08-08-2020 Episodic Other nutritional; endocrine; and metabolic disorders (1 source) Adult failure to thrive; 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: [Adult failure to thrive] Onset: Episodic Other screening for suspected conditions (not mental disorders or infectious disease) (20 sources) INR raised; 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: [Abnormal coagulation profile] Episodic Other upper respiratory disease (1 source) Sore throat - chronic; 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: [Chronic pharyngitis] 11-21-2023 Chronic Paralysis (2 sources) 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 Peripheral and visceral atherosclerosis (20 sources) Peripheral vascular disease, unspecified; 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: [Peripheral vascular disease, unspecified] Onset: 4 Resolved: 3 09-13-2021 Chronic Comment on above: Status post stent Pleurisy; pneumothorax; pulmonary collapse (20 sources) Pneumothorax; 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: [Pneumothorax, unspecified] 08-08-2020 Episodic Residual codes; unclassified (20 sources) Obstructive sleep apnea syndrome; 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: [Obstructive sleep apnea (adult) (pediatric)] Onset: 0 09-12-2019 Chronic Residual codes; unclassified (1 source) History of clinical finding in subject; 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: [Personal history of other medical treatment] Episodic Residual codes; unclassified (1 source) Tobacco user; 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: [Tobacco use] Episodic Residual codes; unclassified (1 source) Pain; 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: [Pain, unspecified] Episodic Respiratory failure; insufficiency; arrest (adult) (20 sources) Chronic hypoxemic respiratory failure; 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: [Chronic respiratory failure with hypoxia] Onset: 3 08-12-2020 Chronic Comment on above: Due to COPD Secondary to COPD ex acerbation, bronchitis Spondylosis; intervertebral disc disorders; other back problems (20 sources) Lumbar spondylosis; 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: [Spondylosis without myelopathy or radiculopathy, lumbar region] Onset: 3 Resolved: 1 07-05-2013 Chronic Sprains and strains (11 sources) Strain of neck muscle; 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: [Strain of muscle, fascia and tendon at neck level, initial encounter] 02-18-2023 Episodic Substance-related disorders (20 sources) Tobacco dependence in remission; 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: [Nicotine dependence, unspecified, in remission] Onset: 5 Resolved: 3 04-27-2020 Chronic Superficial injury; contusion (20 sources) Contusion of flank; 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: [Contusion of abdominal wall, initial encounter] 07-23-2020 Episodic Syncope (5 sources) Syncope; 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: [Syncope and collapse] Onset: 04-18-2024 Episodic Unclassified (20 sources) Failure to thrive; 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: [Failure to thrive] 08-08-2020 Urinary tract infections (20 sources) Acute urinary tract infection; 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: [Urinary tract infection, site not specified] Onset: Episodic Urinary tract infections (2 sources) Urinary tract infections Past or Other Problems Problem Classification Problem Date Documented Da te Episodic/Chronic Abdominal pain (20 sources) Right upper quadrant pain; 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: [Right upper quadrant pain] Onset: 12-22-2013 Resolved: 06-08-2023 09-13-2021 Episodic Acute posthemorrhagic anemia (20 sources) Acute posthemorrhagic anemia; 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: [Acute posthemorrhagic anemia] Onset: 01-09-2014 Resolved: 06-08-2023 06-14-2021 Episodic Comment on above: secondary to bleedin g angodysplasia of the colon Administrative/social admission (20 sources) Illiteracy; 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: [Illiteracy and low-level literacy] Onset: 04-16-2015 04-16-2015 Episodic Biliary tract disease (20 sources) Cholecystitis; 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: [Cholecystitis, unspecified] Onset: 08-21-2021 Resolved: 06-08-2023 09-13-2021 Episodic Complications of surgical procedures or medical care (20 sources) Postoperative wound infection; 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: [Infection following a procedure, other surgical site, initial encounter] Onset: 07-07-2014 Resolved: 06-08-2023 10-25-2019 Episodic Epilepsy; convulsions (20 sources) Seizure disorder; 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: [Epilepsy, unspecified, not intractable, without status epilepticus] Onset: 07-03-2017 Resolved: 07-10-2017 12-16-2019 Chronic Fluid and electrolyte disorders (20 sources) Hyponatremia; 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: [Hypo-osmolality and hyponatremia] Onset: 12-28-2013 Resolved: 06-08-2023 06-08-2023 Episodic Gastrointestinal hemorrhage (20 sources) Melena; 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: [Melena] Onset: 12-15-2013 Resolved: 08-18-2022 06-15-2021 Episodic Genitourinary symptoms and ill-defined conditions (20 sources) Retention of urine; 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: [Retention of urine, unspecified] Onset: 10-25-2013 Resolved: 06-08-2023 06-14-2021 Episodic Headache; including migraine (20 sources) Hemicrania continua; 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] Onset: 11-17-2017 Resolved: 06-08-2023 11-17-2017 Chronic Headache; including migraine (20 sources) Headache; 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: [Headache] Onset: 08-26-1997 Resolved: 06-08-2023 11-03-2017 Episodic Noninfectious gastroenteritis (20 sources) Inflammatory bowel disease; 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: [Noninfective gastroenteritis and colitis, unspecified] Onset: 12-20-2013 01-28-2021 Episodic Other aftercare (20 sources) Anticoagulant effect; 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: [Encounter for therapeutic drug level monitoring] Onset: 11-19-2013 12-17-2019 Episodic Other and unspecified benign neoplasm (20 sources) Lipoma of abdominal wall; 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: [Benign lipomatous neoplasm of skin and subcutaneous tissue of trunk] Onset: 09-09-2014 Resolved: 06-08-2023 09-09-2014 Episodic Other and unspecified benign neoplasm (20 sources) Lipoma of back; 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: [Benign lipomatous neoplasm of skin and subcutaneous tissue of trunk] Onset: 05-13-2016 Resolved: 06-08-2023 05-13-2016 Episodic Other circulatory disease (20 sources) Low blood pressure; 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: [Other hypotension] Onset: 02-07-2016 Resolved: 06-08-2023 06-15-2021 Episodic Other circulatory disease (20 sources) Limb ischemia; 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: [Other disorder of circulatory system] Onset: 10-14-2013 Resolved: 06-08-2023 09-13-2021 Episodic Other connective tissue disease (20 sources) Intermittent claudication; 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: [Pain in leg, unspecified] Onset: 11-19-2014 09-13-2021 Episodic Other connective tissue disease (20 sources) Pain in left lower limb; 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: [Pain in left leg] Onset: 05-02-2019 05-02-2019 Episodic Other connective tissue disease (8 sources) Repeated falls; 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: [History of fall] Onset: 04-10-2024 03-30-2023 Episodic Other connective tissue disease (1 source) Pain in right leg; 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: [Pain in right leg] Onset: 06-21-2024 Episodic Other fractures (20 sources) Compression fracture of vertebral column; 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: [Collapsed vertebra, not elsewhere classified, site unspecified, initial encounter for fracture] Onset: 07-05-2013 Resolved: 04-23-2020 04-23-2020 Episodic Other fractures (1 source) Wedge compression fracture of unspecified lumbar vertebra, initial encounter for closed fracture; 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: [Wedge compression fracture of unspecified lumbar vertebra, initial encounter for closed fracture] Onset: 04-10-2024 Episodic Other inflammatory condition of skin (20 sources) Erythema; 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: [Erythematous condition, unspecified] Onset: 10-30-2013 Resolved: 02-10-2014 06-14-2021 Episodic Other nervous system disorders (20 sources) Trigeminal neuralgia; 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: [Trigeminal neuralgia] Onset: 07-05-2017 07-05-2017 Episodic Other nervous system disorders (20 sources) Acute postoperative pain; 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: [Other acute postprocedural pain] Onset: 10-30-2013 Resolved: 02-10-2014 06-14-2021 Episodic Other nervous system disorders (1 source) Unspecified abnormalities of gait and mobility; 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: [Unspecified abnormalities of gait and mobility] Onset: 06-21-2024 Episodic Other non-traumatic joint disorders (20 sources) Shoulder pain; 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: [Pain in right shoulder] Onset: 05-12-2013 05-12-2013 Episodic Other non-traumatic joint disorders (20 sources) Pain in right shoulder; 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: [Pain in joint, shoulder region] Onset: 05-12-2013 Resolved: 06-08-2023 05-12-2013 Episodic Other non-traumatic joint disorders (20 sources) Pain in left shoulder; 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: [Pain in joint, shoulder region] Onset: 07-01-2015 Resolved: 08-18-2022 08-18-2022 Episodic Other nutritional; endocrine; and metabolic disorders (20 sources) Hypophosphatemia; 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: [Other disorders of phosphorus metabolism] Onset: 10-11-2019 Resolved: 10-13-2019 10-13-2019 Chronic Phlebitis; thrombophlebitis and thromboembolism (20 sources) Thrombosis; 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: [Acute embolism and thrombosis of unspecified vein] Onset: 11-12-2013 Resolved: 02-10-2014 06-14-2021 Episodic Regional enteritis and ulcerative colitis (20 sources) Ulcerative colitis; 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: [Ulcerative colitis, unspecified, without complications] Onset: 06-24-2014 Resolved: 11-09-2018 08-12-2020 Chronic Spondylosis; intervertebral disc disorders; other back problems (20 sources) Low back pain; 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: [Low back pain] Onset: 12-18-2012 Resolved: 06-08-2023 05-12-2013 Episodic Comment on above: Due to L2 compressio n fracture and degenerative disc disease of the lumbar spine Systemic lupus erythematosus and connective tissue disorders (20 sources) Temporal arteritis; 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: [Other giant cell arteritis] Onset: 11-17-2017 Resolved: 11-09-2018 11-09-2018 Chronic Unclassified (20 sources) DISPOSITION AND FOLLOW-UP Onset: 10-25-2013 Resolved: 08-18-2022 08-18-2022 Unclassified (20 sources) SUMMARY Onset: 10-30-2013 Resolved: 08-18-2022 06-14-2021 Unclassified (20 sources) The administrative codes within the IMO content you are accessing may have as of 03/19/2013. Please contact your IT Dept/Help Desk and request the latest Regulatory release be installed. IT Dept/Help Desk- Please refer to our FAQ page ([email or web address]) or contact O Customer Support at [email or web address] 03-20-2013 Results Test Name Value Interpretation Reference Range Facility CBC W Auto Differential pane l (Bld)on 12-12-2024 Basophils (Bld) [#/Vol] 0.09 10*3/uL [facility] Basophils/100 WBC (Bld) 1.5 % [facility] Differential cell count method Nom (Bld) Auto [facility] Eosinophils (Bld) [#/Vol] 0.22 10*3/uL [facility] Eosinophils/100 WBC (Bld) 3.7 % [facility] Erythrocyte distribution width (RBC) [Ratio] 13.8 % 11.5 - 15.0 % [facility] Hematocrit (Bld) [Volume fraction] 38.3 % Low 39.0 - 51.0 % [facility] Hemoglobin (Bld) [Mass/Vol] 11.7 g/dL Low 13.0 - 17.0 g/dL [facility] Immature granulocytes (Bld) [#/Vol] [facility] Immature granulocytes/100 WBC (Bld) 0.3 % [facility] Interpretation and review of laboratory results Abnormal [facility] Lymphocytes (Bld) [#/Vol] 0.8 10*3/uL Low [facility] Lymphocytes/100 WBC (Bld) 13.6 % [facility] MCH (RBC) [Entitic mass] 27.9 pg 26. 0 - 34.0 pg [facility] MCHC (RBC) [Mass/Vol] 30.5 g/dL 30.5 - 36.0 g/dL [facility] MCV (RBC) [Entitic vol] 91.4 fL 80.0 - 100.0 fL [facility] Monocytes (Bld) [#/Vol] 0.51 10*3/uL [facility] Monocytes/100 WBC (Bld) 8.7 % [facility] Neutrophils (Bld) [#/Vol] 4.25 10*3/uL [facility] Neutrophils/100 WBC (Bld) 72.2 % [facility] Nucleated RBC (Bld) [#/Vol] [facility] Nucleated RBC/100 WBC (Bld) [Ratio] 0 % /100 WBC [facility] Platelet mean volume (Bld) [Entitic vol] 10.5 fL 9.0 - 12.7 fL [facility] Platelets (Bld) [#/Vol] 310 10*3/uL [facility] RBC (Bld) [#/Vol] 4.19 10*6/uL Low 4.20 - 6.0 0 m/uL [facility] WBC (Bld) [#/Vol] 5.89 10*3/uL [facility] Basic Metabolic Profile (BMP )on 12-02-2024 BUN/CRE 23.5 RATIO High 10-20 [facility] Comment on above: Order Comment: 307.2 Performed By: #### L 100.0500, L500.2500, L506.1001 ####[facility] [address] [place], [address] Calcium [Mass/Vol] 9.4 mg/dL Normal 7.6-11.0 [facility] Comment on above: Order Comment: 307.2 Performed By: #### L 100.0500, L500.2500, L506.1001 ####[facility] [address] [place], [address] Chloride [Moles/Vol] 104 mmol/L Normal 98-108 [facility] Comment on above: Order Comment: 307.2 Performed By: #### L 100.0500, L500.2500, L506.1001 ####[facility] [address] [place], [address] CO2 [Moles/Vol] 25.5 mmol/L Normal 21.0-32.0 [facility] Comment on above: Order Comment: 307.2 Performed By: #### L 100.0500, L500.2500, L506.1001 ####[facility] [address] [place], [address] Creatinine [Mass/Vol] 1.21 mg/dL High 0.70-1.[address] [facility] Comment on above: Order Comment: 307.2 Performed By: #### L 100.0500, L500.2500, L506.1001 ####[facility] [address] [place], [address] GAP 11 Normal 5-15 [facility] Comment on above: Order Comment: 307.2 Performed By: #### L 100.0500, L500.2500, L506.1001 ####[facility] [address] [place], [address] GFR/1.73 sq M.predicted among non-blacks MDRD (S/P/Bld) [Vol rate/Area] 62 mL/min/{1.73_m2} Normal >60 [facility] Comment on above: Order Comment: 307.2 Result Comment: mL/m in/1.73m2 CKD-EPI Creatinine Equation (2020) Performed By: #### L 100.0500, L500.2500, L506.1001 ####[facility] [address] [place], [address] Glucose [Mass/Vol] 86 mg/dL Normal 70-99 [facility] Comment on above: Order Comment: 307.2 Performed By: #### L 100.0500, L500.2500, L506.1001 ####[facility] [address] [place], [address] Potassium [Moles/Vol] 4.1 mmol/L Normal 3.3-5.[address] [facility] Comment on above: Order Comment: 307.2 Performed By: #### L 100.0500, L500.2500, L506.1001 ####[facility] [address] [place], [address] Sodium [Moles/Vol] 141 mmol/L Normal 133-145 [facility] Comment on above: Order Comment: 307.2 Performed By: #### L 100.0500, L500.2500, L506.1001 ####[facility] [address] [place], [address] Urea nitrogen [Mass/Vol] 28 mg/dL High 4-19 [facility] Comment on above: Order Comment: 307.2 Performed By: #### L 100.0500, L500.2500, L506.1001 ####[facility] [address] [place], [address] CBC-Complete Blood Cnt No Di ffon 12-02-2024 Erythrocyte distribution width (RBC) [Ratio] 13.2 % Normal 11.6-14.6 [facility] Comment on above: Order Comment: 307.2 Performed By: #### L 100.0500, L500.2500, L506.1001 ####[facility] [address] [place], [address] Hematocrit (Bld) [Volume fraction] 35.2 % Low 40-54 [facility] Comment on above: Order Comment: 307.2 Performed By: #### L 100.0500, L500.2500, L506.1001 ####[facility] [address] [place] [place], [address] Hemoglobin (Bld) [Mass/Vol] 11.1 g/dL Low 13.0-16.5 [facility] Comment on above: Order Comment: 307.2 Performed By: #### L 100.0500, L500.2500, L506.1001 ####[facility] [address] [place], [address] MCH (RBC) [Entitic mass] 28.6 pg Normal 27.0-32.0 [facility] Comment on above: Order Comment: 307.2 Performed By: #### L 100.0500, L500.2500, L506.1001 ####[facility] [address] [place], [address] MCHC (RBC) [Mass/Vol] 31.5 g/dL Low 32-[address] [facility] Comment on above: Order Comment: 307.2 Performed By: #### L 100.0500, L500.2500, L506.1001 ####[facility] [address] [place], [address] MCV (RBC) [Entitic vol] 90.7 fL Normal 80-94 [facility] Comment on above: Order Comment: 307.2 Performed By: #### L 100.0500, L500.2500, L506.1001 ####[facility] [address] [place], [address] Platelet mean volume (Bld) [Entitic vol] 10.2 fL Normal 6.2-12.0 [facility] Comment on above: Order Comment: 307.2 Performed By: #### L 100.0500, L500.2500, L506.1001 ####[facility] [address] [place], [address] Platelets (Bld) [#/Vol] 314 10*3/uL Normal 150-450 [facility] Comment on above: Order Comment: 307.2 Performed By: #### L 100.0500, L500.2500, L506.1001 ####[facility] [address] [place], [address] RBC (Bld) [#/Vol] 3.88 10*6/uL Low 4.6-6.2 [facility] Comment on above: Order Comment: 307.2 Performed By: #### L 100.0500, L500.2500, L506.1001 ####[facility] [address] [place], [address] RDW SD 43.6 fl Normal 35.1-43.9 [facility] Comment on above: Order Comment: 307.2 Performed By: #### L 100.0500, L500.2500, L506.1001 ####[facility] [address] [place], [address] WBC (Bld) [#/Vol] 5.1 10*3/uL Normal 4.4-11.0 [facility] Comment on above: Order Comment: 307.2 Performed By: #### L 100.0500, L500.2500, L506.1001 ####[facility] [address] [place], [address] Vitamin D,25 Hydroxyon 12-02 Vitamin D 25-OH 46.6 ng/mL Normal 30-100 [facility] Comment on above: Order Comment: 307.2 Result Comment: Teri min D StatusDeficiency: <20 ng/mL (50nmol/L)Insufficiency: 20-30 ng/mL (50-75 nmol/L)Sufficiency: 30-100 ng/mL (75-250 nmol/L)Toxicity: >100 ng/mL (>250 nmol/L) Performed By: #### L 100.0500, L500.2500, L506.1001 ####[facility] [address] [place], [address] Calculated very low density lipoprotein (VLDL) cholesterol measurementOrdered By: Carla Prather on 11-05-2024 Calculated very low density lipoprotein (VLDL) cholesterol measurement 13 mg/dL 5-40 [facility] LDL calc ser/plasOrdered By: Carla Prather on 11-05-2024 Cholesterol in LDL [Mass/Vol] 63 mg/dL [facility] Comment on above: Aovkbkznpg=954-534 m g/dL & Higher Zgyh=937 mg/dL or greater Lipid Profileon 11-05-2024 CHOL:HDL 2.18 Normal [facility] Comment on above: Order Comment: 307.2 Performed By: #### L 500.4100, L506.1001 ####[facility] [address] [place], [address] Cholesterol [Mass/Vol] 140 mg/dL Normal <=200 [facility] Comment on above: Order Comment: 307.2 Result Comment: Chol esterol level, Desirable <200 mg/dLBorderline high cholesterol 200-239 mg/dLHigh cholesterol >=240 mg/dLRecommendations of the NCEP Adult Treatment Panel for thefollowing risk-cutoff thresholds for the [place] Americanpulation. Performed By: #### L 500.4100, L506.1001 ####[facility] [address] [place], [address] Cholesterol in HDL [Mass/Vol] 64 mg/dL Normal [facility] Comment on above: Order Comment: 307.2 Result Comment: Yasmin onal Cholesterol Education Program (NCEP) guidelines:<40 mg/dL: Low HDL-cholesterol (major risk factor for CHD)>= 60 mg/dL: High HDL-cholesterol (negative risk factor forCHD)HDL-cholesterol is affected by a number of factors, e.g.smoking, exercise, hormones, sex and age. Performed By: #### L 500.4100, L506.1001 ####[facility] [address] [place], [address] Cholesterol in LDL [Mass/Vol] 63 mg/dL Normal [facility] Comment on above: Order Comment: 307.2 Result Comment: Bord smcavk=765-198 mg/dL Higher Efvi=270 mg/dL or greater Performed By: #### L 500.4100, L506.1001 ####[facility] [address] [place], [address] Cholesterol in VLDL [Mass/Vol] 13 mg/dL Normal 5-40 [facility] Comment on above: Order Comment: 307.2 Performed By: #### L 500.4100, L506.1001 ####[facility] [address] [place], [address] Triglyceride [Mass/Vol] 63 mg/dL Normal [facility] Comment on above: Order Comment: 307.2 Result Comment: The drugs N-Acetylcysteine and Metamizole may falselydepress this assay.Normal range: <150 mg/dLBorderline High: 150-199 mg/dLHigh: 200-499 mg/dLVery High: >500 mg/dL Performed By: #### L 500.4100, L506.1001 ####[facility] [address] [place], [address] Screening total cholesterol/ high density lipoprotein (HDL) cholesterol ratioOrdered By: Carla Prather on 11-05-2024 Cholesterol.total/Choles terol in HDL [Mass ratio] 2.18 {ratio} [facility] Serum or plasma cholesterol in HDL measurement (mass/volume)Ordered By: Carla Prather on 11-05-2024 Cholesterol in HDL [Mass/Vol] 64 mg/dL >40 [facility] Comment on above: National Cholesterol Education Program (NCEP) guidelines:<40 mg/dL: Low HDL-cholesterol (major risk factor for CHD)>= 60 mg/dL: High HDL-cholesterol (negative risk factor for CHD)HDL-cholesterol is affected by a number of factors, e.g. smoking, exercise, hormones, sex and age. Serum or plasma cholesterol measurement (mass/volume)Ordered By: Carla Prather on 11-05-2024 Cholesterol [Mass/Vol] 140 mg/dL <201 [facility] Comment on above: Cholesterol level, D esirable <200 mg/dLBorderline high cholesterol 200-239 mg/dLHigh cholesterol >=240 mg/dLRecommendations of the NCEP Adult Treatment Panel for the following risk-cutoff thresholds for the [place] population. Triglycerides measurementOrd ered By: Carla Prather on 11-05-2024 Triglyceride [Mass/Vol] 63 mg/dL <199 [facility] Comment on above: The drugs N-Acetylcy steine and Metamizole may falsely depress this assay. Normal range: <150 mg/dLBorderline High: 150-199 mg/dLHigh: 200-499 mg/dLVery High: >500 mg/dL Vitamin D,25 Hydroxyon 11-05 Vitamin D 25-OH 51.2 ng/mL Normal 30-100 [facility] Comment on above: Order Comment: 307.2 Result Comment: Teri min D StatusDeficiency: <20 ng/mL (50nmol/L)Insufficiency: 20-30 ng/mL (50-75 nmol/L)Sufficiency: 30-100 ng/mL (75-250 nmol/L)Toxicity: >100 ng/mL (>250 nmol/L) Performed By: #### L 500.4100, L506.1001 ####[facility] [address] [place], [address] Lipid Profileon 11-04-2024 CHOL Normal <=200 [facility] Comment on above: Order Comment: 307-2 Result Comment: MICHOACANO ENT REFUSED-NOTFIED NURSE Performed By: #### L 500.4100 ####[facility] [address] [place], [address] CHOL:HDL Normal [facility] Comment on above: Order Comment: 307-2 Result Comment: MICHOACANO ENT REFUSED-NOTFIED NURSE Performed By: #### L 500.4100 ####[facility] [address] [place], [address] CLDL Normal [facility] Comment on above: Order Comment: 307-2 Result Comment: MICHOACANO ENT REFUSED-NOTFIED NURSE Performed By: #### L 500.4100 ####[facility] [address] [place], [address] HDL Normal [facility] Comment on above: Order Comment: 307-2 Result Comment: MICHOACANO ENT REFUSED-NOTFIED NURSE Performed By: #### L 500.4100 ####[facility] [address] [place], [address] TRIG Normal [facility] Comment on above: Order Comment: 307-2 Result Comment: MICHOACANO ENT REFUSED-NOTFIED NURSE Performed By: #### L 500.4100 ####[facility] [address] [place], [address] VLDL Normal 5-40 [facility] Comment on above: Order Comment: 307-2 Result Comment: MICHOACANO ENT REFUSED-NOTFIED NURSE Performed By: #### L 500.4100 ####[facility] [address] [place], [address] Carbamazepine (Tegretol)on 0 10-16-2024 CARBAMAZEPINE 7.1 ug/mL Normal 4.0-12.0 [facility] Comment on above: Order Comment: 300 Performed By: #### L 501.7900 ####[facility] [address] [place], [address] Serum or plasma carbamazepin e level (mass/volume)Ordered By: Carla Prather on 10-16-2024 carBAMazepine [Mass/Vol] 7.1 ug/mL 4.0-12.0 [facility] Urine Cultureon 09-08-2024 URC Normal [facility] Comment on above: Performed By: #### M 100.2200, L400.0001 ####[facility] [address] [place], [address] Anion gap in Serum or Plasma Ordered By: Celia Toribio on 09-02-2024 Anion gap [Moles/Vol] 11 mmol/L 5-[address] [facility] BUN/creatinine ratioOrdered By: Celia Toribio on 09-02-2024 Urea nitrogen/Creatinine [Mass ratio] 27.0 mg/mg High 10-20 [facility] Basic Metabolic Profile (BMP )on 09-02-2024 BUN/CRE 27.0 RATIO High - [facility] Comment on above: Performed By: #### L 500.2500, L100.0100 ####[facility] [address] [place], [address] Calcium [Mass/Vol] 9.2 mg/dL Normal 7.6-11.0 [facility] Comment on above: Performed By: #### L 500.2500, L100.0100 ####[facility] [address] [place], [address] Chloride [Moles/Vol] 106 mmol/L Normal 98-108 [facility] Comment on above: Performed By: #### L 500.2500, L100.0100 ####[facility] [address] [place], [address] CO2 [Moles/Vol] 20.8 mmol/L Low 21.0-32.0 [facility] Comment on above: Performed By: #### L 500.2500, L100.0100 ####[facility] [address] [place], [address] Creatinine [Mass/Vol] 1.22 mg/dL High 0.70-1.[address] [facility] Comment on above: Performed By: #### L 500.2500, L100.0100 ####[facility] [address] [place], [address] ECRCL 50.54 ml/min Normal 50-250 [facility] Comment on above: Performed By: #### L 500.2500, L100.0100 ####[facility] [address] [place], [address] GAP 11 Normal 5-15 [facility] Comment on above: Performed By: #### L 500.2500, L100.0100 ####[facility] [address] [place], [address] GFR/1.73 sq M.predicted among non-blacks MDRD (S/P/Bld) [Vol rate/Area] 62 mL/min/{1.73_m2} Normal >60 [facility] Comment on above: Result Comment: mL/m in/1.73m2 CKD-EPI Creatinine Equation (2020) Performed By: #### L 500.2500, L100.0100 ####[facility] [address] [place], [address] Glucose [Mass/Vol] 99 mg/dL Normal 70-99 [facility] Comment on above: Performed By: #### L 500.2500, L100.0100 ####[facility] [address] [place], [address] Potassium [Moles/Vol] 4.0 mmol/L Normal 3.3-5.[address] [facility] Comment on above: Performed By: #### L 500.2500, L100.0100 ####[facility] [address] [place], [address] Sodium [Moles/Vol] 138 mmol/L Normal 133-145 [facility] Comment on above: Performed By: #### L 500.2500, L100.0100 ####[facility] [address] [place], [address] Urea nitrogen [Mass/Vol] 33 mg/dL High 4-19 [facility] Comment on above: Performed By: #### L 500.2500, L100.0100 ####[facility] [address] [place], [address] CBC W/Diff, Automatedon 03- Absolute Neut Normal 2.0-7.7 [facility] Comment on above: Result Comment: Canc elled via OM: MD Ordered Performed By: #### L 500.2500, L100.0100 ####[facility] [address] [place], [address] HCT Normal 40-54 [facility] Comment on above: Result Comment: Canc elled via OM: MD Ordered Performed By: #### L 500.2500, L100.0100 ####[facility] [address] [place], [address] HGB Normal 13.0-16.5 [facility] Comment on above: Result Comment: Canc elled via OM: MD Ordered Performed By: #### L 500.2500, L100.0100 ####[facility] [address] [place], [address] MCH Normal 27.0-32.0 [facility] Comment on above: Result Comment: Canc elled via OM: MD Ordered Performed By: #### L 500.2500, L100.0100 ####[facility] [address] [place], [address] MCHC Normal 32-36 [facility] Comment on above: Result Comment: Canc elled via OM: MD Ordered Performed By: #### L 500.2500, L100.0100 ####[facility] [address] [place], [address] MCV Normal 80-94 [facility] Comment on above: Result Comment: Canc elled via OM: MD Ordered Performed By: #### L 500.2500, L100.0100 ####[facility] [address] [place], [address] NEUT% Normal 47-70 [facility] Comment on above: Result Comment: Canc elled via OM: MD Ordered Performed By: #### L 500.2500, L100.0100 ####[facility] [address] [place], [address] PLT Normal 150-450 [facility] Comment on above: Result Comment: Canc elled via OM: MD Ordered Performed By: #### L 500.2500, L100.0100 ####[facility] [address] [place], [address] RBC Normal 4.6-6.2 [facility] Comment on above: Result Comment: Canc elled via OM: MD Ordered Performed By: #### L 500.2500, L100.0100 ####[facility] [address] [place], [address] RDW CV Normal 11.6-14.6 [facility] Comment on above: Result Comment: Canc elled via OM: MD Ordered Performed By: #### L 500.2500, L100.0100 ####[facility] [address] [place], [address] RDW SD Normal 35.1-43.9 [facility] Comment on above: Result Comment: Canc elled via OM: MD Ordered Performed By: #### L 500.2500, L100.0100 ####[facility] [address] [place], [address] WBC Normal 4.4-11.0 [facility] Comment on above: Result Comment: Canc elled via OM: MD Ordered Performed By: #### L 500.2500, L100.0100 ####[facility] [address] [place], [address] Carbon dioxide, total [Moles /volume] in Central venous bloodOrdered By: Celia Toribio on 09-02-2024 CO2 [Moles/Vol] 20.8 mmol/L Low 21.0-32.0 [facility] Chloride assayOrdered By: Yariel Toribio on 09-02-2024 Chloride [Moles/Vol] 106 mmol/L 98-108 [facility] Estimation of creatinine zeke aranceOrdered By: Celia Toribio on 09-02-2024 Estimated Creatinine Clearance Calc 50.54 ml/min 50-250 [facility] GFR/1.73 sq M.predicted gisella g non-blacks MDRD (S/P/Bld) [Vol rate/Area]Ordered By: Celia Toribio on 09-02-2024 Estimated GFR (MDRD) Non-Af Amer 62 >60 [facility] Comment on above: mL/min/1.73m2 CKD-EP I Creatinine Equation (2020) Glomerular filtration rate ( GFR) estimation/1.73 sq m using serum, plasma, or whole bOrdered By: Celia Toribio on 09-02-2024 GFR/1.73 sq M.predicted among non-blacks MDRD (S/P/Bld) [Vol rate/Area] 62 mL/min/{1.73_m2} >60 [facility] Comment on above: mL/min/1.73m2 CKD-EP I Creatinine Equation (2020) Potassium (Unsp spec) [Mass/ Vol]Ordered By: Celia Toribio on 09-02-2024 Potassium [Moles/Vol] 4.0 mmol/L 3.3-5.[address] [facility] Potassium measurement (mass/ volume)Ordered By: Celia Toribio on 09-02-2024 Potassium (Unsp spec) [Mass/Vol] 4.0 mmol/L 3.3-5.1 [facility] Serum creatinine measurement (mass/volume)Ordered By: Celia Toribio on 09-02-2024 Creatinine [Mass/Vol] 1.22 mg/dL High 0.70-1.[address] [facility] Serum glucose measurement (m ass/volume)Ordered By: Celia Toribio on 09-02-2024 Glucose [Mass/Vol] 99 mg/dL 70-99 [facility] Serum or plasma calcium luis urement (mass/volume)Ordered By: Celia Toribio on 09-02-2024 Calcium [Mass/Vol] 9.2 mg/dL 7.6-11.0 [facility] Serum or plasma urea nitroge n measurement (mass/volume)Ordered By: Celia Toribio on 03-17-2025 Urea nitrogen [Mass/Vol] 33 mg/dL High 4-19 [facility] Sodium levelOrdered By: Rigoberto Toribio on 09-02-2024 Sodium [Moles/Vol] 138 mmol/L 133-145 [facility] Absolute lymphocyte countOrd ered By: Celia Toribio on 09-01-2024 Lymphocytes Auto (Unsp spec) [#/Vol] 1.45 10*3/uL 0.83-4.51 [facility] Absolute neutrophil countOrd ered By: Celia Toribio on 09-01-2024 Neutrophils (Bld) [#/Vol] 4.9 10*3/uL 2.0-7.7 [facility] Automated lymphocyte count a s percentage of total leukocytesOrdered By: Celia Toribio on 09-01-2024 Lymphocytes/100 WBC Auto (Unsp spec) 20.9 % 19-41 [facility] Basic Metabolic Profile (BMP )on 09-01-2024 BUN/CRE 26.8 RATIO High 10-20 [facility] Comment on above: Order Comment: PT RE FUSED REPORTED TO ОЛЕГ STORY. ОЛЕГ STORY SAID SHE WOULDTRY TO DRAW. Performed By: #### L 500.2500 ####[facility] [address] [place], [address] Calcium [Mass/Vol] 9.6 mg/dL Normal 7.6-11.0 [facility] Comment on above: Order Comment: PT RE FUSED REPORTED TO ОЛЕГ STORY. ОЛЕГ STORY SAID SHE WOULDTRY TO DRAW. Performed By: #### L 500.2500 ####[facility] [address] [place], [address] Chloride [Moles/Vol] 102 mmol/L Normal 98-108 [facility] Comment on above: Order Comment: PT RE FUSED REPORTED TO ОЛЕГ STORY. ОЛЕГ STORY SAID SHE WOULDTRY TO DRAW. Performed By: #### L 500.2500 ####[facility] [address] [place], [address] CO2 [Moles/Vol] 21.9 mmol/L Normal 21.0-32.0 [facility] Comment on above: Order Comment: PT RE FUSED REPORTED TO RN JEZ. RN JEZ SAID SHE WOULDTRY TO DRAW. Performed By: #### L 500.2500 ####[facility] [address] [place], [place], [phone] Creatinine [Mass/Vol] 1.44 mg/dL High 0.70-1.[address] [facility] Comment on above: Order Comment: PT RE FUSED REPORTED TO RN JEZ. RN JEZ SAID SHE WOULDTRY TO DRAW. Performed By: #### L 500.2500 ####[facility] [address] [place], [address] ECRCL 42.38 ml/min Low 50-250 [facility] Comment on above: Order Comment: PT RE FUSED REPORTED TO ОЛЕГ STORY. RN JEZ SAID SHE WOULDTRY TO DRAW. Performed By: #### L 500.2500 ####[facility] [address] [place], [address] GAP 13 Normal 5-15 [facility] Comment on above: Order Comment: PT RE FUSED REPORTED TO ОЛЕГ STORY. RN JEZ SAID SHE WOULDTRY TO DRAW. Performed By: #### L 500.2500 ####[facility] [address] [place], [place], [phone] GFR/1.73 sq M.predicted among non-blacks MDRD (S/P/Bld) [Vol rate/Area] 51 mL/min/{1.73_m2} Low >60 [facility] Comment on above: Order Comment: PT RE FUSED REPORTED TO RN JEZ. RN JEZ SAID SHE WOULDTRY TO DRAW. Result Comment: mL/m in/1.73m2 CKD-EPI Creatinine Equation (2020) Performed By: #### L 500.2500 ####[facility] [address] [place], [place], [phone] Glucose [Mass/Vol] 118 mg/dL High 70-99 [facility] Comment on above: Order Comment: PT RE FUSED REPORTED TO ОЛЕГ STORY. RN JEZ SAID SHE WOULDTRY TO DRAW. Performed By: #### L 500.2500 ####[facility] [address] [place], [address] Potassium [Moles/Vol] 4.1 mmol/L Normal 3.3-5.[address] [facility] Comment on above: Order Comment: PT RE FUSED REPORTED TO RN JEZ. RN JEZ SAID SHE WOULDTRY TO DRAW. Performed By: #### L 500.2500 ####[facility] [address] [place], [address] Sodium [Moles/Vol] 137 mmol/L Normal 133-145 [facility] Comment on above: Order Comment: PT RE FUSED REPORTED TO RN JEZ. RN JEZ SAID SHE WOULDTRY TO DRAW. Performed By: #### L 500.2500 ####[facility] [address] [place], [address] Urea nitrogen [Mass/Vol] 39 mg/dL High 4-19 [facility] Comment on above: Order Comment: PT RE FUSED REPORTED TO ОЛЕГ STORY. RN JEZ SAID SHE WOULDTRY TO DRAW. Performed By: #### L 500.2500 ####[facility] [address] [place], [address] BUN/CRE 30.2 RATIO High 10-20 [facility] Comment on above: Performed By: #### L 100.0100, L500.2500 ####[facility] [address] [place], [address] Calcium [Mass/Vol] 9.7 mg/dL Normal 7.6-11.0 [facility] Comment on above: Performed By: #### L 100.0100, L500.2500 ####[facility] [address] [place], [address] Chloride [Moles/Vol] 103 mmol/L Normal 98-108 [facility] Comment on above: Performed By: #### L 100.0100, L500.2500 ####[facility] [address] [place], [address] CO2 [Moles/Vol] 19.4 mmol/L Low 21.0-32.0 [facility] Comment on above: Performed By: #### L 100.0100, L500.2500 ####[facility] [address] [place], [address] Creatinine [Mass/Vol] 1.33 mg/dL High 0.70-1.[address] [facility] Comment on above: Performed By: #### L 100.0100, L500.2500 ####[facility] [address] [place], [address] ECRCL 45.89 ml/min Low 50-250 [facility] Comment on above: Performed By: #### L 100.0100, L500.2500 ####[facility] [address] [place], [address] GAP 16 High 5-15 [facility] Comment on above: Performed By: #### L 100.0100, L500.2500 ####[facility] [address] [place], [address] GFR/1.73 sq M.predicted among non-blacks MDRD (S/P/Bld) [Vol rate/Area] 56 mL/min/{1.73_m2} Low >60 [facility] Comment on above: Result Comment: mL/m in/1.73m2 CKD-EPI Creatinine Equation (2020) Performed By: #### L 100.0100, L500.2500 ####[facility] [address] [place], [address] Glucose [Mass/Vol] 83 mg/dL Normal 70-99 [facility] Comment on above: Performed By: #### L 100.0100, L500.2500 ####[facility] [address] [place], [address] Potassium [Moles/Vol] 3.8 mmol/L Normal 3.3-5.[address] [facility] Comment on above: Performed By: #### L 100.0100, L500.2500 ####[facility] [address] [place], [address] Sodium [Moles/Vol] 139 mmol/L Normal 133-145 [facility] Comment on above: Performed By: #### L 100.0100, L500.2500 ####[facility] [address] [place], [address] Urea nitrogen [Mass/Vol] 40 mg/dL High 4-19 [facility] Comment on above: Performed By: #### L 100.0100, L500.2500 ####[facility] [address] [place], [address] Basophil percentageOrdered B y: Celia Toribio on 09-01-2024 Basophils/100 WBC (Bld) 1.0 % 0-1 [facility] CBC W/Diff, Automatedon 08-17 Absolute Lymph 1.45 X10 3/uL Normal 0.83-4.51 [facility] Comment on above: Performed By: #### L 100.0100 ####[facility] [address] [place], [address] Absolute Neut 4.9 X10 3/uL Normal 2.0-7.7 [facility] Comment on above: Performed By: #### L 100.0100 ####[facility] [address] [place], [address] Basophils/100 WBC (Bld) 1.0 % Normal 0-1 [facility] Comment on above: Performed By: #### L 100.0100 ####[facility] [address] [place], [address] Eosinophils/100 WBC (Bld) 0.4 % Normal 0-5 [facility] Comment on above: Performed By: #### L 100.0100 ####[facility] [address] [place], [address] Erythrocyte distribution width (RBC) [Ratio] 13.3 % Normal 11.6-14.6 [facility] Comment on above: Performed By: #### L 100.0100 ####[facility] [address] [place], [address] Hematocrit (Bld) [Volume fraction] 43.2 % Normal 40-54 [facility] Comment on above: Performed By: #### L 100.0100 ####[facility] [address] [place], [address] Hemoglobin (Bld) [Mass/Vol] 14.1 g/dL Normal 13.0-16.5 [facility] Comment on above: Performed By: #### L 100.0100 ####[facility] [address] [place], [address] IG% 0.600 Normal 0.0-0.9 [facility] Comment on above: Result Comment: IG% - Immature Granulocytes (promyelocytes, myelocytes andmetamyelocytes) > 1% indicates that a LEFT SHIFT is Present. Performed By: #### L 100.0100 ####[facility] [address] [place], [address] Lymphocytes/100 WBC (Bld) 20.9 % Normal 19-41 [facility] Comment on above: Performed By: #### L 100.0100 ####[facility] [address] [place], [address] MCH (RBC) [Entitic mass] 31.4 pg Normal 27.0-32.0 [facility] Comment on above: Performed By: #### L 100.0100 ####[facility] [address] [place], [address] MCHC (RBC) [Mass/Vol] 32.6 g/dL Normal 32-[address] [facility] Comment on above: Performed By: #### L 100.0100 ####[facility] [address] [place], [address] MCV (RBC) [Entitic vol] 96.2 fL High 80-94 [facility] Comment on above: Performed By: #### L 100.0100 ####[facility] [address] [place], [address] Monocytes/100 WBC (Bld) 6.2 % Normal 0-10 [facility] Comment on above: Performed By: #### L 100.0100 ####[facility] [address] [place], [address] Neutrophils/100 WBC (Bld) 70.9 % High 47-70 [facility] Comment on above: Performed By: #### L 100.0100 ####[facility] [address] [place], [address] Nucleated RBC (Bld) [#/Vol] 0 10*3/uL Normal 0-5 [facility] Comment on above: Performed By: #### L 100.0100 ####[facility] [address] [place], [address] Platelet mean volume (Bld) [Entitic vol] 9.5 fL Normal 6.2-12.0 [facility] Comment on above: Performed By: #### L 100.0100 ####[facility] [address] [place], [address] Platelets (Bld) [#/Vol] 367 10*3/uL Normal 150-450 [facility] Comment on above: Performed By: #### L 100.0100 ####[facility] [address] [place], [address] RBC (Bld) [#/Vol] 4.49 10*6/uL Low 4.6-6.2 [facility] Comment on above: Performed By: #### L 100.0100 ####[facility] [address] [place], [address] RDW SD 47.4 fl High 35.1-43.9 [facility] Comment on above: Performed By: #### L 100.0100 ####[facility] [address] [place], [address] WBC (Bld) [#/Vol] 6.9 10*3/uL Normal 4.4-11.0 [facility] Comment on above: Performed By: #### L 100.0100 ####[facility] [address] [place], [address] Absolute Neut Normal 2.0-7.7 [facility] Comment on above: Result Comment: Canc elled via OM: MD Ordered Performed By: #### L 100.0100, L500.2500 ####[facility] [address] [place], [address] HCT Normal 40-54 [facility] Comment on above: Result Comment: Canc elled via OM: MD Ordered Performed By: #### L 100.0100, L500.2500 ####[facility] [address] [place], [address] HGB Normal 13.0-16.5 [facility] Comment on above: Result Comment: Canc elled via OM: MD Ordered Performed By: #### L 100.0100, L500.2500 ####[facility] [address] [place], [address] MCH Normal 27.0-32.0 [facility] Comment on above: Result Comment: Canc elled via OM: MD Ordered Performed By: #### L 100.0100, L500.2500 ####[facility] [address] [place], [address] MCHC Normal 32-36 [facility] Comment on above: Result Comment: Canc elled via OM: MD Ordered Performed By: #### L 100.0100, L500.2500 ####[facility] [address] [place], [address] MCV Normal 80-94 [facility] Comment on above: Result Comment: Canc elled via OM: MD Ordered Performed By: #### L 100.0100, L500.2500 ####[facility] [address] [place], [address] NEUT% Normal 47-70 [facility] Comment on above: Result Comment: Canc elled via OM: MD Ordered Performed By: #### L 100.0100, L500.2500 ####[facility] [address] [place], [address] PLT Normal 150-450 [facility] Comment on above: Result Comment: Canc elled via OM: MD Ordered Performed By: #### L 100.0100, L500.2500 ####[facility] [address] [place], [address] RBC Normal 4.6-6.2 [facility] Comment on above: Result Comment: Canc elled via OM: MD Ordered Performed By: #### L 100.0100, L500.2500 ####[facility] [address] [place], [address] RDW CV Normal 11.6-14.6 [facility] Comment on above: Result Comment: Canc elled via OM: MD Ordered Performed By: #### L 100.0100, L500.2500 ####[facility] [address] [place], [address] RDW SD Normal 35.1-43.9 [facility] Comment on above: Result Comment: Canc elled via OM: MD Ordered Performed By: #### L 100.0100, L500.2500 ####[facility] [address] [place], [address] WBC Normal 4.4-11.0 [facility] Comment on above: Result Comment: Canc elled via OM: MD Ordered Performed By: #### L 100.0100, L500.2500 ####[facility] [address] [place], [address] Eosinophil percentageOrdered By: Celia Toribio on 09-01-2024 Eosinophils/100 WBC (Bld) 0.4 % 0-5 [facility] Erythrocyte distribution wid th ratioOrdered By: Celia Toribio on 09-01-2024 Erythrocyte distribution width (RBC) [Ratio] 13.3 % 11.6-14.6 [facility] Erythrocyte distribution wid th standard deviationOrdered By: Celia Toribio on 09-01-2024 Erythrocyte distribution width (RBC) [Entitic vol] 47.4 fL High 35.1-43.9 [facility] Erythrocyte distribution width (RBC) [Ratio] 47.4 fl High 35.1-43.9 [facility] Hematocrit Auto (Bld) [Volum e fraction]Ordered By: Celia Toribio on 09-01-2024 Hematocrit (Bld) [Volume fraction] 43.2 % 40-54 [facility] Hemoglobin measurementOrdere d By: Celia Toribio on 09-01-2024 Hemoglobin (Bld) [Mass/Vol] 14.1 g/dL 13.0-16.5 [facility] Immature granulocytes/100 WB C Auto (Bld)Ordered By: Celia Toribio on 09-01-2024 Immature granulocytes/100 WBC (Bld) 0.600 % 0.0-0.9 [facility] Comment on above: IG% - Immature Granu locytes (promyelocytes, myelocytes and metamyelocytes) > 1% indicates that a LEFT SHIFT is Present. Lymphocytes Auto (Unsp spec) [#/Vol]Ordered By: Celia Toribio on 09-01-2024 Lymphocytes (Bld) [#/Vol] 1.45 10*3/uL 0.83-4.51 [facility] Lymphocytes/100 WBC Auto (Un sp spec)Ordered By: Celia Toribio on 09-01-2024 Lymphocytes/100 WBC (Bld) 20.9 % 19-41 [facility] MCV (mean corpuscular volume ) determinationOrdered By: Celia Toribio on 09-01-2024 MCV (RBC) [Entitic vol] 96.2 fL High 80-94 [facility] Mean corpuscular hemoglobin (MCH) determinationOrdered By: Celia Toribio on 09-01-2024 MCH (RBC) [Entitic mass] 31.4 pg 27.0-32.0 [facility] Mean corpuscular hemoglobin concentration (MCHC) determinationOrdered By: Celia Toribio on 09-01-2024 MCHC (RBC) [Mass/Vol] 32.6 g/dL 32-[address] [facility] Mean platelet volume determi nationOrdered By: Celia Toribio on 09-01-2024 Platelet mean volume (Bld) [Entitic vol] 9.5 fL 6.2-12.0 [facility] Monocyte percentageOrdered B y: Celia Toribio on 09-01-2024 Monocytes/100 WBC (Bld) 6.2 % 0-10 [facility] Neutrophil percentageOrdered By: Celia Toribio on 09-01-2024 Neutrophils/100 WBC (Bld) 70.9 % High 47-70 [facility] Nucleated red blood cell per centageOrdered By: Celia Toribio on 09-01-2024 Nucleated RBC/100 WBC (Bld) [Ratio] 0 % 0-5 [facility] Platelet countOrdered By: Yariel Toribio on 09-01-2024 Platelets (Bld) [#/Vol] 367 10*3/uL 150-450 [facility] RBC Auto (Bld) [#/Vol]Ordere d By: Celia Toribio on 09-01-2024 RBC (Bld) [#/Vol] 4.49 10*6/uL Low 4.6-6.2 [facility] White blood cell (WBC) count Ordered By: Celia Toribio on 09-01-2024 WBC (Bld) [#/Vol] 6.9 10*3/uL 4.4-11.0 [facility] Basic Metabolic Profile (BMP )on 08-31-2024 BUN/CRE 25.7 RATIO High 10-20 [facility] Comment on above: Performed By: #### L 500.2500, L100.0100 ####[facility] [address] [place], [address] Calcium [Mass/Vol] 10.0 mg/dL Normal 7.6-11.0 [facility] Comment on above: Performed By: #### L 500.2500, L100.0100 ####[facility] [address] [place], [address] Chloride [Moles/Vol] 102 mmol/L Normal 98-108 [facility] Comment on above: Performed By: #### L 500.2500, L100.0100 ####[facility] [address] [place], [address] CO2 [Moles/Vol] 21.5 mmol/L Normal 21.0-32.0 [facility] Comment on above: Performed By: #### L 500.2500, L100.0100 ####[facility] [address] [place], [address] Creatinine [Mass/Vol] 1.16 mg/dL Normal 0.70-1.[address] [facility] Comment on above: Performed By: #### L 500.2500, L100.0100 ####[facility] [address] [place], [address] ECRCL 52.61 ml/min Normal 50-250 [facility] Comment on above: Performed By: #### L 500.2500, L100.0100 ####[facility] [address] [place], [address] GAP 15 Normal 5-15 [facility] Comment on above: Performed By: #### L 500.2500, L100.0100 ####[facility] [address] [place], [address] GFR/1.73 sq M.predicted among non-blacks MDRD (S/P/Bld) [Vol rate/Area] 66 mL/min/{1.73_m2} Normal >60 [facility] Comment on above: Result Comment: mL/m in/1.73m2 CKD-EPI Creatinine Equation (2020) Performed By: #### L 500.2500, L100.0100 ####[facility] [address] [place], [address] Glucose [Mass/Vol] 93 mg/dL Normal 70-99 [facility] Comment on above: Performed By: #### L 500.2500, L100.0100 ####[facility] [address] [place], [address] Potassium [Moles/Vol] 3.8 mmol/L Normal 3.3-5.[address] [facility] Comment on above: Performed By: #### L 500.2500, L100.0100 ####[facility] [address] [place], [address] Sodium [Moles/Vol] 138 mmol/L Normal 133-145 [facility] Comment on above: Performed By: #### L 500.2500, L100.0100 ####[facility] [address] [place], [address] Urea nitrogen [Mass/Vol] 30 mg/dL High 4-19 [facility] Comment on above: Performed By: #### L 500.2500, L100.0100 ####[facility] [address] [place], [address] CBC W/Diff, Automatedon 08-17 Absolute Neut Normal 2.0-7.7 [facility] Comment on above: Result Comment: Bethanie luna via OM: Ordered Performed By: #### L 500.2500, L100.0100 ####[facility] [address] [place], [address] HCT Normal 40-54 [facility] Comment on above: Result Comment: Canc elled via OM: MD Ordered Performed By: #### L 500.2500, L100.0100 ####[facility] [address] [place], [address] HGB Normal 13.0-16.5 [facility] Comment on above: Result Comment: Canc elled via OM: MD Ordered Performed By: #### L 500.2500, L100.0100 ####[facility] [address] [place], [address] MCH Normal 27.0-32.0 [facility] Comment on above: Result Comment: Canc elled via OM: MD Ordered Performed By: #### L 500.2500, L100.0100 ####[facility] [address] [place], [address] MCHC Normal 32-36 [facility] Comment on above: Result Comment: Canc elled via OM: MD Ordered Performed By: #### L 500.2500, L100.0100 ####[facility] [address] [place], [address] MCV Normal 80-94 [facility] Comment on above: Result Comment: Canc elled via OM: MD Ordered Performed By: #### L 500.2500, L100.0100 ####[facility] [address] [place], [address] NEUT% Normal 47-70 [facility] Comment on above: Result Comment: Canc elled via OM: MD Ordered Performed By: #### L 500.2500, L100.0100 ####[facility] [address] [place], [address] PLT Normal 150-450 [facility] Comment on above: Result Comment: Canc elled via OM: MD Ordered Performed By: #### L 500.2500, L100.0100 ####[facility] [address] [place], [address] RBC Normal 4.6-6.2 [facility] Comment on above: Result Comment: Canc elled via OM: MD Ordered Performed By: #### L 500.2500, L100.0100 ####[facility] [address] [place], [address] RDW CV Normal 11.6-14.6 [facility] Comment on above: Result Comment: Canc elled via OM: MD Ordered Performed By: #### L 500.2500, L100.0100 ####[facility] [address] [place], [address] RDW SD Normal 35.1-43.9 [facility] Comment on above: Result Comment: Canc elled via OM: MD Ordered Performed By: #### L 500.2500, L100.0100 ####[facility] [address] [place], [address] WBC Normal 4.4-11.0 [facility] Comment on above: Result Comment: Canc elled via OM: MD Ordered Performed By: #### L 500.2500, L100.0100 ####[facility] [address] [place], [address] Basic Metabolic Profile (BMP )on 08-30-2024 BUN/CRE 21.4 RATIO High 10-20 [facility] Comment on above: Performed By: #### L 500.2500, L100.0100 ####[facility] [address] [place], [address] Calcium [Mass/Vol] 10.1 mg/dL Normal 7.6-11.0 [facility] Comment on above: Performed By: #### L 500.2500, L100.0100 ####[facility] [address] [place], [address] Chloride [Moles/Vol] 102 mmol/L Normal 98-108 [facility] Comment on above: Performed By: #### L 500.2500, L100.0100 ####[facility] [address] [place], [address] CO2 [Moles/Vol] 22.7 mmol/L Normal 21.0-32.0 [facility] Comment on above: Performed By: #### L 500.2500, L100.0100 ####[facility] [address] [place], [address] Creatinine [Mass/Vol] 1.21 mg/dL High 0.70-1.[address] [facility] Comment on above: Performed By: #### L 500.2500, L100.0100 ####[facility] [address] [place], [address] ECRCL 51.03 ml/min Normal 50-250 [facility] Comment on above: Performed By: #### L 500.2500, L100.0100 ####[facility] [address] [place], [address] GAP 13 Normal 5-15 [facility] Comment on above: Performed By: #### L 500.2500, L100.0100 ####[facility] [address] [place], [address] GFR/1.73 sq M.predicted among non-blacks MDRD (S/P/Bld) [Vol rate/Area] 62 mL/min/{1.73_m2} Normal >60 [facility] Comment on above: Result Comment: mL/m in/1.73m2 CKD-EPI Creatinine Equation (2020) Performed By: #### L 500.2500, L100.0100 ####[facility] [address] [place], [address] Glucose [Mass/Vol] 94 mg/dL Normal 70-99 [facility] Comment on above: Performed By: #### L 500.2500, L100.0100 ####[facility] [address] [place], [address] Potassium [Moles/Vol] 4.2 mmol/L Normal 3.3-5.[address] [facility] Comment on above: Performed By: #### L 500.2500, L100.0100 ####[facility] [address] [place], [address] Sodium [Moles/Vol] 138 mmol/L Normal 133-145 [facility] Comment on above: Performed By: #### L 500.2500, L100.0100 ####[facility] [address] [place], [address] Urea nitrogen [Mass/Vol] 26 mg/dL High 4-19 [facility] Comment on above: Performed By: #### L 500.2500, L100.0100 ####[facility] [address] [place], [address] CBC W/Diff, Automatedon 03-06 22-2024 Absolute Lymph 1.00 X10 3/uL Normal 0.83-4.51 [facility] Comment on above: Performed By: #### L 500.2500, L100.0100 ####[facility] [address] [place], [address] Absolute Neut 3.7 X10 3/uL Normal 2.0-7.7 [facility] Comment on above: Performed By: #### L 500.2500, L100.0100 ####[facility] [address] [place], [address] Basophils/100 WBC (Bld) 1.6 % High 0-1 [facility] Comment on above: Performed By: #### L 500.2500, L100.0100 ####[facility] [address] [place], [address] Eosinophils/100 WBC (Bld) 7.8 % High 0-5 [facility] Comment on above: Performed By: #### L 500.2500, L100.0100 ####[facility] [address] [place], [address] Erythrocyte distribution width (RBC) [Ratio] 13.3 % Normal 11.6-14.6 [facility] Comment on above: Performed By: #### L 500.2500, L100.0100 ####[facility] [address] [place], [address] Hematocrit (Bld) [Volume fraction] 41.8 % Normal 40-54 [facility] Comment on above: Performed By: #### L 500.2500, L100.0100 ####[facility] [address] [place], [address] Hemoglobin (Bld) [Mass/Vol] 13.8 g/dL Normal 13.0-16.5 [facility] Comment on above: Performed By: #### L 500.2500, L100.0100 ####[facility] [address] [place], [address] IG% 0.400 Normal 0.0-0.9 [facility] Comment on above: Result Comment: IG% - Immature Granulocytes (promyelocytes, myelocytes andmetamyelocytes) > 1% indicates that a LEFT SHIFT is Present. Performed By: #### L 500.2500, L100.0100 ####[facility] [address] [place], [address] Lymphocytes/100 WBC (Bld) 17.8 % Low 19-41 [facility] Comment on above: Performed By: #### L 500.2500, L100.0100 ####[facility] [address] [place], [address] MCH (RBC) [Entitic mass] 31.9 pg Normal 27.0-32.0 [facility] Comment on above: Performed By: #### L 500.2500, L100.0100 ####[facility] [address] [place], [address] MCHC (RBC) [Mass/Vol] 33.0 g/dL Normal 32-[address] [facility] Comment on above: Performed By: #### L 500.2500, L100.0100 ####[facility] [address] [place], [address] MCV (RBC) [Entitic vol] 96.5 fL High 80-94 [facility] Comment on above: Performed By: #### L 500.2500, L100.0100 ####[facility] [address] [place], [address] Monocytes/100 WBC (Bld) 7.6 % Normal 0-10 [facility] Comment on above: Performed By: #### L 500.2500, L100.0100 ####[facility] [address] [place], [address] Neutrophils/100 WBC (Bld) 64.8 % Normal 47-70 [facility] Comment on above: Performed By: #### L 500.2500, L100.0100 ####[facility] [address] [place], [address] Nucleated RBC (Bld) [#/Vol] 0 10*3/uL Normal 0-5 [facility] Comment on above: Performed By: #### L 500.2500, L100.0100 ####[facility] [address] [place], [address] Platelet mean volume (Bld) [Entitic vol] 9.7 fL Normal 6.2-12.0 [facility] Comment on above: Performed By: #### L 500.2500, L100.0100 ####[facility] [address] [place], [address] Platelets (Bld) [#/Vol] 309 10*3/uL Normal 150-450 [facility] Comment on above: Performed By: #### L 500.2500, L100.0100 ####[facility] [address] [place], [address] RBC (Bld) [#/Vol] 4.33 10*6/uL Low 4.6-6.2 [facility] Comment on above: Performed By: #### L 500.2500, L100.0100 ####[facility] [address] [place], [address] RDW SD 47.7 fl High 35.1-43.9 [facility] Comment on above: Performed By: #### L 500.2500, L100.0100 ####[facility] [address] [place], [address] WBC (Bld) [#/Vol] 5.6 10*3/uL Normal 4.4-11.0 [facility] Comment on above: Performed By: #### L 500.2500, L100.0100 ####[facility] [address] [place], [address] Consultation - Infectious Dx on 08-30-2024 Consultation - Infectious Dx Normal [facility] Basic Metabolic Profile (BMP )on 08-29-2024 BUN/CRE 24.6 RATIO High 10-20 [facility] Comment on above: Performed By: #### L 500.2500, L100.0100 ####[facility] [address] [place], [address] Calcium [Mass/Vol] 10.0 mg/dL Normal 7.6-11.0 [facility] Comment on above: Performed By: #### L 500.2500, L100.0100 ####[facility] [address] [place], [address] Chloride [Moles/Vol] 104 mmol/L Normal 98-108 [facility] Comment on above: Performed By: #### L 500.2500, L100.0100 ####[facility] [address] [place], [address] CO2 [Moles/Vol] 22.8 mmol/L Normal 21.0-32.0 [facility] Comment on above: Performed By: #### L 500.2500, L100.0100 ####[facility] [address] [place], [address] Creatinine [Mass/Vol] 1.21 mg/dL High 0.70-1.[address] [facility] Comment on above: Performed By: #### L 500.2500, L100.0100 ####[facility] [address] [place], [address] ECRCL 51.03 ml/min Normal 50-250 [facility] Comment on above: Performed By: #### L 500.2500, L100.0100 ####[facility] [address] [place], [address] GAP 14 Normal 5-15 [facility] Comment on above: Performed By: #### L 500.2500, L100.0100 ####[facility] [address] [place], [address] GFR/1.73 sq M.predicted among non-blacks MDRD (S/P/Bld) [Vol rate/Area] 62 mL/min/{1.73_m2} Normal >60 [facility] Comment on above: Result Comment: mL/m in/1.73m2 CKD-EPI Creatinine Equation (2020) Performed By: #### L 500.2500, L100.0100 ####[facility] [address] [place], [address] Glucose [Mass/Vol] 91 mg/dL Normal 70-99 [facility] Comment on above: Performed By: #### L 500.2500, L100.0100 ####[facility] [address] [place], [address] Potassium [Moles/Vol] 4.1 mmol/L Normal 3.3-5.[address] [facility] Comment on above: Performed By: #### L 500.2500, L100.0100 ####[facility] [address] [place], [address] Sodium [Moles/Vol] 141 mmol/L Normal 133-145 [facility] Comment on above: Performed By: #### L 500.2500, L100.0100 ####[facility] [address] [place], [address] Urea nitrogen [Mass/Vol] 30 mg/dL High 4-19 [facility] Comment on above: Performed By: #### L 500.2500, L100.0100 ####[facility] [address] [place], [address] CBC W/Diff, Automatedon 03-1 -2024 Absolute Lymph 1.17 X10 3/uL Normal 0.83-4.51 [facility] Comment on above: Performed By: #### L 500.2500, L100.0100 ####[facility] [address] [place], [address] Absolute Neut 3.1 X10 3/uL Normal 2.0-7.7 [facility] Comment on above: Performed By: #### L 500.2500, L100.0100 ####[facility] [address] [place], [address] Basophils/100 WBC (Bld) 1.3 % High 0-1 [facility] Comment on above: Performed By: #### L 500.2500, L100.0100 ####[facility] [address] [place], [address] Eosinophils/100 WBC (Bld) 8.2 % High 0-5 [facility] Comment on above: Performed By: #### L 500.2500, L100.0100 ####[facility] [address] [place], [address] Erythrocyte distribution width (RBC) [Ratio] 13.5 % Normal 11.6-14.6 [facility] Comment on above: Performed By: #### L 500.2500, L100.0100 ####[facility] [address] [place], [address] Hematocrit (Bld) [Volume fraction] 39.2 % Low 40-54 [facility] Comment on above: Performed By: #### L 500.2500, L100.0100 ####[facility] [address] [place], [address] Hemoglobin (Bld) [Mass/Vol] 12.8 g/dL Low 13.0-16.5 [facility] Comment on above: Performed By: #### L 500.2500, L100.0100 ####[facility] [address] [place], [address] IG% 0.400 Normal 0.0-0.9 [facility] Comment on above: Result Comment: IG% - Immature Granulocytes (promyelocytes, myelocytes andmetamyelocytes) > 1% indicates that a LEFT SHIFT is Present. Performed By: #### L 500.2500, L100.0100 ####[facility] [address] [place], [address] Lymphocytes/100 WBC (Bld) 22.3 % Normal 19-41 [facility] Comment on above: Performed By: #### L 500.2500, L100.0100 ####[facility] [address] [place], [address] MCH (RBC) [Entitic mass] 31.4 pg Normal 27.0-32.0 [facility] Comment on above: Performed By: #### L 500.2500, L100.0100 ####[facility] [address] [place], [address] MCHC (RBC) [Mass/Vol] 32.7 g/dL Normal 32-[address] [facility] Comment on above: Performed By: #### L 500.2500, L100.0100 ####[facility] [address] [place], [address] MCV (RBC) [Entitic vol] 96.1 fL High 80-94 [facility] Comment on above: Performed By: #### L 500.2500, L100.0100 ####[facility] [address] [place], [address] Monocytes/100 WBC (Bld) 8.0 % Normal 0-10 [facility] Comment on above: Performed By: #### L 500.2500, L100.0100 ####[facility] [address] [place], [address] Neutrophils/100 WBC (Bld) 59.8 % Normal 47-70 [facility] Comment on above: Performed By: #### L 500.2500, L100.0100 ####[facility] [address] [place], [address] Nucleated RBC (Bld) [#/Vol] 0 10*3/uL Normal 0-5 [facility] Comment on above: Performed By: #### L 500.2500, L100.0100 ####[facility] [address] [place], [address] Platelet mean volume (Bld) [Entitic vol] 9.8 fL Normal 6.2-12.0 [facility] Comment on above: Performed By: #### L 500.2500, L100.0100 ####[facility] [address] [place], [address] Platelets (Bld) [#/Vol] 277 10*3/uL Normal 150-450 [facility] Comment on above: Performed By: #### L 500.2500, L100.0100 ####[facility] [address] [place], [address] RBC (Bld) [#/Vol] 4.08 10*6/uL Low 4.6-6.2 [facility] Comment on above: Performed By: #### L 500.2500, L100.0100 ####[facility] [address] [place], [address] RDW SD 47.8 fl High 35.1-43.9 [facility] Comment on above: Performed By: #### L 500.2500, L100.0100 ####[facility] [address] [place], [address] WBC (Bld) [#/Vol] 5.3 10*3/uL Normal 4.4-11.0 [facility] Comment on above: Performed By: #### L 500.2500, L100.0100 ####[facility] [address] [place], [address] Basic Metabolic Profile (BMP )on 08-28-2024 BUN/CRE 21.6 RATIO High 10-20 [facility] Comment on above: Performed By: #### L 500.2500, L100.0100 ####[facility] [address] [place], [address] Calcium [Mass/Vol] 9.8 mg/dL Normal 7.6-11.0 [facility] Comment on above: Performed By: #### L 500.2500, L100.0100 ####[facility] [address] [place], [address] Chloride [Moles/Vol] 105 mmol/L Normal 98-108 [facility] Comment on above: Performed By: #### L 500.2500, L100.0100 ####[facility] [address] [place], [address] CO2 [Moles/Vol] 21.9 mmol/L Normal 21.0-32.0 [facility] Comment on above: Performed By: #### L 500.2500, L100.0100 ####[facility] [address] [place], [address] Creatinine [Mass/Vol] 1.14 mg/dL Normal 0.70-1.[address] [facility] Comment on above: Performed By: #### L 500.2500, L100.0100 ####[facility] [address] [place], [address] ECRCL 54.17 ml/min Normal 50-250 [facility] Comment on above: Performed By: #### L 500.2500, L100.0100 ####[facility] [address] [place], [address] GAP 13 Normal 5-15 [facility] Comment on above: Performed By: #### L 500.2500, L100.0100 ####[facility] [address] [place], [address] GFR/1.73 sq M.predicted among non-blacks MDRD (S/P/Bld) [Vol rate/Area] 67 mL/min/{1.73_m2} Normal >60 [facility] Comment on above: Result Comment: mL/m in/1.73m2 CKD-EPI Creatinine Equation (2020) Performed By: #### L 500.2500, L100.0100 ####[facility] [address] [place], [address] Glucose [Mass/Vol] 93 mg/dL Normal 70-99 [facility] Comment on above: Performed By: #### L 500.2500, L100.0100 ####[facility] [address] [place], [address] Potassium [Moles/Vol] 3.8 mmol/L Normal 3.3-5.[address] [facility] Comment on above: Performed By: #### L 500.2500, L100.0100 ####[facility] [address] [place], [address] Sodium [Moles/Vol] 140 mmol/L Normal 133-145 [facility] Comment on above: Performed By: #### L 500.2500, L100.0100 ####[facility] [address] [place], [address] Urea nitrogen [Mass/Vol] 25 mg/dL High 4-19 [facility] Comment on above: Performed By: #### L 500.2500, L100.0100 ####[facility] [address] [place], [address] CBC W/Diff, Automatedon 03-06 20-2024 Absolute Lymph 1.06 X10 3/uL Normal 0.83-4.51 [facility] Comment on above: Performed By: #### L 500.2500, L100.0100 ####[facility] [address] [place], [address] Absolute Neut 2.5 X10 3/uL Normal 2.0-7.7 [facility] Comment on above: Performed By: #### L 500.2500, L100.0100 ####[facility] [address] [place], [address] Basophils/100 WBC (Bld) 1.8 % High 0-1 [facility] Comment on above: Performed By: #### L 500.2500, L100.0100 ####[facility] [address] [place], [address] Eosinophils/100 WBC (Bld) 7.5 % High 0-5 [facility] Comment on above: Performed By: #### L 500.2500, L100.0100 ####[facility] [address] [place], [address] Erythrocyte distribution width (RBC) [Ratio] 13.3 % Normal 11.6-14.6 [facility] Comment on above: Performed By: #### L 500.2500, L100.0100 ####[facility] [address] [place], [address] Hematocrit (Bld) [Volume fraction] 39.0 % Low 40-54 [facility] Comment on above: Performed By: #### L 500.2500, L100.0100 ####[facility] [address] [place], [address] Hemoglobin (Bld) [Mass/Vol] 12.8 g/dL Low 13.0-16.5 [facility] Comment on above: Performed By: #### L 500.2500, L100.0100 ####[facility] [address] [place], [address] IG% 0.400 Normal 0.0-0.9 [facility] Comment on above: Result Comment: IG% - Immature Granulocytes (promyelocytes, myelocytes andmetamyelocytes) > 1% indicates that a LEFT SHIFT is Present. Performed By: #### L 500.2500, L100.0100 ####[facility] [address] [place], [address] Lymphocytes/100 WBC (Bld) 23.4 % Normal 19-41 [facility] Comment on above: Performed By: #### L 500.2500, L100.0100 ####[facility] [address] [place], [address] MCH (RBC) [Entitic mass] 31.1 pg Normal 27.0-32.0 [facility] Comment on above: Performed By: #### L 500.2500, L100.0100 ####[facility] [address] [place], [address] MCHC (RBC) [Mass/Vol] 32.8 g/dL Normal 32-[address] [facility] Comment on above: Performed By: #### L 500.2500, L100.0100 ####[facility] [address] [place], [address] MCV (RBC) [Entitic vol] 94.7 fL High 80-94 [facility] Comment on above: Performed By: #### L 500.2500, L100.0100 ####[facility] [address] [place], [address] Monocytes/100 WBC (Bld) 11.3 % High 0-10 [facility] Comment on above: Performed By: #### L 500.2500, L100.0100 ####[facility] [address] [place], [address] Neutrophils/100 WBC (Bld) 55.6 % Normal 47-70 [facility] Comment on above: Performed By: #### L 500.2500, L100.0100 ####[facility] [address] [place], [address] Nucleated RBC (Bld) [#/Vol] 0 10*3/uL Normal 0-5 [facility] Comment on above: Performed By: #### L 500.2500, L100.0100 ####[facility] [address] [place], [address] Platelet mean volume (Bld) [Entitic vol] 9.8 fL Normal 6.2-12.0 [facility] Comment on above: Performed By: #### L 500.2500, L100.0100 ####[facility] [address] [place], [address] Platelets (Bld) [#/Vol] 279 10*3/uL Normal 150-450 [facility] Comment on above: Performed By: #### L 500.2500, L100.0100 ####[facility] [address] [place], [address] RBC (Bld) [#/Vol] 4.12 10*6/uL Low 4.6-6.2 [facility] Comment on above: Performed By: #### L 500.2500, L100.0100 ####[facility] [address] [place], [address] RDW SD 46.1 fl High 35.1-43.9 [facility] Comment on above: Performed By: #### L 500.2500, L100.0100 ####[facility] [address] [place], [address] WBC (Bld) [#/Vol] 4.5 10*3/uL Normal 4.4-11.0 [facility] Comment on above: Performed By: #### L 500.2500, L100.0100 ####[facility] [address] [place], [address] Basic Metabolic Profile (BMP )on 08-27-2024 BUN/CRE 17.2 RATIO Normal 10-20 [facility] Comment on above: Performed By: #### L 500.2500, L100.0100 ####[facility] [address] [place], [address] Calcium [Mass/Vol] 9.5 mg/dL Normal 7.6-11.0 [facility] Comment on above: Performed By: #### L 500.2500, L100.0100 ####[facility] [address] [place], [address] Chloride [Moles/Vol] 104 mmol/L Normal 98-108 [facility] Comment on above: Performed By: #### L 500.2500, L100.0100 ####[facility] [address] [place], [address] CO2 [Moles/Vol] 19.9 mmol/L Low 21.0-32.0 [facility] Comment on above: Performed By: #### L 500.2500, L100.0100 ####[facility] [address] [place], [address] Creatinine [Mass/Vol] 1.18 mg/dL Normal 0.70-1.[address] [facility] Comment on above: Performed By: #### L 500.2500, L100.0100 ####[facility] [address] [place], [address] ECRCL 52.25 ml/min Normal 50-250 [facility] Comment on above: Performed By: #### L 500.2500, L100.0100 ####[facility] [address] [place], [address] GAP 14 Normal 5-15 [facility] Comment on above: Performed By: #### L 500.2500, L100.0100 ####[facility] [address] [place], [address] GFR/1.73 sq M.predicted among non-blacks MDRD (S/P/Bld) [Vol rate/Area] 64 mL/min/{1.73_m2} Normal >60 [facility] Comment on above: Result Comment: mL/m in/1.73m2 CKD-EPI Creatinine Equation (2020) Performed By: #### L 500.2500, L100.0100 ####[facility] [address] [place], [address] Glucose [Mass/Vol] 97 mg/dL Normal 70-99 [facility] Comment on above: Performed By: #### L 500.2500, L100.0100 ####[facility] [address] [place], [address] Potassium [Moles/Vol] 3.4 mmol/L Normal 3.3-5.[address] [facility] Comment on above: Performed By: #### L 500.2500, L100.0100 ####[facility] [address] [place], [address] Sodium [Moles/Vol] 139 mmol/L Normal 133-145 [facility] Comment on above: Performed By: #### L 500.2500, L100.0100 ####[facility] [address] [place], [address] Urea nitrogen [Mass/Vol] 20 mg/dL High 4-19 [facility] Comment on above: Performed By: #### L 500.2500, L100.0100 ####[facility] [address] [place], [address] Bilirubin Test strip Ql (U)O rdered By: Celia Toribio on 08-27-2024 Bilirubin Ql (U) Negative Negative [facility] CBC W/Diff, Automatedon 08-17 Absolute Lymph 0.95 X10 3/uL Normal 0.83-4.51 [facility] Comment on above: Performed By: #### L 500.2500, L100.0100 ####[facility] [address] [place], [address] Absolute Neut 2.3 X10 3/uL Normal 2.0-7.7 [facility] Comment on above: Performed By: #### L 500.2500, L100.0100 ####[facility] [address] [place], [address] Basophils/100 WBC (Bld) 1.2 % High 0-1 [facility] Comment on above: Performed By: #### L 500.2500, L100.0100 ####[facility] [address] [place], [address] Eosinophils/100 WBC (Bld) 6.3 % High 0-5 [facility] Comment on above: Performed By: #### L 500.2500, L100.0100 ####[facility] [address] [place], [address] Erythrocyte distribution width (RBC) [Ratio] 13.3 % Normal 11.6-14.6 [facility] Comment on above: Performed By: #### L 500.2500, L100.0100 ####[facility] [address] [place], [address] Hematocrit (Bld) [Volume fraction] 38.4 % Low 40-54 [facility] Comment on above: Performed By: #### L 500.2500, L100.0100 ####[facility] [address] [place], [address] Hemoglobin (Bld) [Mass/Vol] 12.8 g/dL Low 13.0-16.5 [facility] Comment on above: Performed By: #### L 500.2500, L100.0100 ####[facility] [address] [place], [address] IG% 0.200 Normal 0.0-0.9 [facility] Comment on above: Result Comment: IG% - Immature Granulocytes (promyelocytes, myelocytes andmetamyelocytes) > 1% indicates that a LEFT SHIFT is Present. Performed By: #### L 500.2500, L100.0100 ####[facility] [address] [place], [address] Lymphocytes/100 WBC (Bld) 23.0 % Normal 19-41 [facility] Comment on above: Performed By: #### L 500.2500, L100.0100 ####[facility] [address] [place], [address] MCH (RBC) [Entitic mass] 31.4 pg Normal 27.0-32.0 [facility] Comment on above: Performed By: #### L 500.2500, L100.0100 ####[facility] [address] [place], [address] MCHC (RBC) [Mass/Vol] 33.3 g/dL Normal 32-[address] [facility] Comment on above: Performed By: #### L 500.2500, L100.0100 ####[facility] [address] [place], [address] MCV (RBC) [Entitic vol] 94.3 fL High 80-94 [facility] Comment on above: Performed By: #### L 500.2500, L100.0100 ####[facility] [address] [place], [address] Monocytes/100 WBC (Bld) 13.1 % High 0-10 [facility] Comment on above: Performed By: #### L 500.2500, L100.0100 ####[facility] [address] [place], [address] Neutrophils/100 WBC (Bld) 56.2 % Normal 47-70 [facility] Comment on above: Performed By: #### L 500.2500, L100.0100 ####[facility] [address] [place], [address] Nucleated RBC (Bld) [#/Vol] 0 10*3/uL Normal 0-5 [facility] Comment on above: Performed By: #### L 500.2500, L100.0100 ####[facility] [address] [place], [address] Platelet mean volume (Bld) [Entitic vol] 10.0 fL Normal 6.2-12.0 [facility] Comment on above: Performed By: #### L 500.2500, L100.0100 ####[facility] [address] [place], [address] Platelets (Bld) [#/Vol] 253 10*3/uL Normal 150-450 [facility] Comment on above: Performed By: #### L 500.2500, L100.0100 ####[facility] [address] [place], [address] RBC (Bld) [#/Vol] 4.07 10*6/uL Low 4.6-6.2 [facility] Comment on above: Performed By: #### L 500.2500, L100.0100 ####[facility] [address] [place], [address] RDW SD 46.1 fl High 35.1-43.9 [facility] Comment on above: Performed By: #### L 500.2500, L100.0100 ####[facility] [address] [place], [address] WBC (Bld) [#/Vol] 4.1 10*3/uL Low 4.4-11.0 [facility] Comment on above: Performed By: #### L 500.2500, L100.0100 ####[facility] [address] [place], [address] CBC-Complete Blood Cnt No Di ffon 08-27-2024 Erythrocyte distribution width (RBC) [Ratio] 13.4 % Normal 11.6-14.6 [facility] Comment on above: Performed By: #### L 100.0500 ####[facility] [address] [place], [address] Hematocrit (Bld) [Volume fraction] 40.6 % Normal 40-54 [facility] Comment on above: Performed By: #### L 100.0500 ####[facility] [address] [place], [address] Hemoglobin (Bld) [Mass/Vol] 13.5 g/dL Normal 13.0-16.5 [facility] Comment on above: Performed By: #### L 100.0500 ####[facility] [address] [place], [address] MCH (RBC) [Entitic mass] 31.5 pg Normal 27.0-32.0 [facility] Comment on above: Performed By: #### L 100.0500 ####[facility] [address] [place], [address] MCHC (RBC) [Mass/Vol] 33.3 g/dL Normal 32-[address] [facility] Comment on above: Performed By: #### L 100.0500 ####[facility] [address] [place], [address] MCV (RBC) [Entitic vol] 94.6 fL High 80-94 [facility] Comment on above: Performed By: #### L 100.0500 ####[facility] [address] [place], [address] Platelet mean volume (Bld) [Entitic vol] 9.8 fL Normal 6.2-12.0 [facility] Comment on above: Performed By: #### L 100.0500 ####[facility] [address] [place], [address] Platelets (Bld) [#/Vol] 283 10*3/uL Normal 150-450 [facility] Comment on above: Performed By: #### L 100.0500 ####[facility] [address] [place], [address] RBC (Bld) [#/Vol] 4.29 10*6/uL Low 4.6-6.2 [facility] Comment on above: Performed By: #### L 100.0500 ####[facility] [address] [place], [address] RDW SD 46.0 fl High 35.1-43.9 [facility] Comment on above: Performed By: #### L 100.0500 ####[facility] [address] [place], [address] WBC (Bld) [#/Vol] 4.9 10*3/uL Normal 4.4-11.0 [facility] Comment on above: Performed By: #### L 100.0500 ####[facility] [address] [place], [address] Epithelial cells.squamous LM Ql (Urine sed)Ordered By: Celia Toribio on 08-27-2024 Epithelial cells.squamous LM.HPF (Urine sed) [#/Area] 0 /[HPF] 0-5 [facility] Glucose Ql (U)Ordered By: Yariel Toribio on 08-27-2024 Urine Glucose (UA) Normal mg/dl Normal [facility] Ketones Test strip Ql (U)Ord ered By: Celia Toribio on 08-27-2024 Ketones Ql (U) Negative Negative [facility] Microscopic analysis of urin e for red blood cells (RBC)Ordered By: Celia Toribio on 08-27-2024 Microscopic analysis of urine for red blood cells (RBC) 0 SEEN /hpf 0-5 [facility] Urine RBC 0 SEEN /hpf 0-5 [facility] Mucus LM Ql (Urine sed)Order ed By: Celia Toribio on 08-27-2024 Mucus Ql (Urine sed) 0 SEEN /hpf [facility] Nitrite Test strip Ql (U)Ord ered By: Ceila Toribio on 08-27-2024 Nitrite Ql (U) Positive High Negative [facility] Protein Test strip Ql (U)Ord ered By: Celia Toribio on 08-27-2024 Protein Ql (U) 30 mg/dl High Negative [facility] Squamous epithelial cells de tection in urine sediment by light microscopyOrdered By: Celia Toribio on 08-27-2024 Epithelial cells.squamous LM Ql (Urine sed) 0-5 SEEN /hpf 0-5 [facility] Urinalysis, Completeon 08-27 BACTERIA 4+ /hpf Normal None Seen [facility] Comment on above: Order Comment: CLEAN CATCH Performed By: #### M 100.2200, L400.0001 ####[facility] [address] [place], [address] EPI,SQUAMOUS 0-5 SEEN Normal 0-5 [facility] Comment on above: Order Comment: CLEAN CATCH Performed By: #### M 100.2200, L400.0001 ####[facility] [address] [place], [address] RBC 0 SEEN Normal 0-5 [facility] Comment on above: Order Comment: CLEAN CATCH Performed By: #### M 100.2200, L400.0001 ####[facility] [address] [place], [address] WBC 25-50 SEEN Normal 0-5 [facility] Comment on above: Order Comment: CLEAN CATCH Performed By: #### M 100.2200, L400.0001 ####[facility] [address] [place], [address] Mucus Ql (Urine sed) 0 SEEN Normal [facility] Comment on above: Order Comment: CLEAN CATCH Performed By: #### M 100.2200, L400.0001 ####[facility] [address] [place], [address] Urine blood detectionOrdered By: Celia Toribio on 08-27-2024 Urine Occult Blood Negative Negative [facility] Urine clarityOrdered By: Allyson Toribio on 08-27-2024 Clarity (U) Clear Clear [facility] [facility] Urine color determinationOrd ered By: Celia Toribio on 08-27-2024 Color (U) Yellow Yellow [facility] Urine cultureOrdered By: Allyson Toribio on 08-27-2024 Bacteria identified Cx Nom (U) ESBL Escherichia coli Abnormal [facility] Urine glucose detectionOrder ed By: Celia Toribio on 08-27-2024 Glucose Ql (U) Normal mg/dl Normal [facility] Urine leukocyte esterase det ection by dipstickOrdered By: Celia Toribio on 08-27-2024 Leukocyte esterase Test strip Ql (U) 500 /ul High Negative [facility] Urine pHOrdered By: Celia rapp on 08-27-2024 pH (U) 6.0 [pH] 5.0 - 8.0 [facility] Urine sediment bacteria coun t by microscopy (number/high power field)Ordered By: Celia Toribio on 08-27-2024 Bacteria LM.HPF (Urine sed) [#/Area] 4 /[HPF] None Seen [facility] Urine specific gravity measu rementOrdered By: eClia Toribio on 08-27-2024 Specific gravity (U) [Rel density] 1.015 1.002-1.030 [facility] Urine urobilinogen measureme ntOrdered By: Celia Toribio on 08-27-2024 Urobilinogen Ql (U) Normal mg/dl Normal [facility] Urobilinogen Ql (U)Ordered B y: Celia Toribio on 08-27-2024 Urine Urobilinogen Normal mg/dl Normal [facility] White blood cell countOrdere d By: Celia Toribio on 08-27-2024 Urine WBC 25-50 SEEN /hpf 0-5 [facility] White blood cell count 25-50 SEEN /hpf 0-5 [facility] Bilirubin, totalOrdered By: Lisha Talamantes on 08-26-2024 Bilirubin [Mass/Vol] 0.25 mg/dL 0.00-1.30 [facility] CBC W/Diff, Automatedon 08-17 Absolute Lymph 0.94 X10 3/uL Normal 0.83-4.51 [facility] Comment on above: Performed By: #### L 501.5200, L100.0100, L500.4050, L501.2300 ####[facility] [address] [place], [address] Absolute Neut 2.9 X10 3/uL Normal 2.0-7.7 [facility] Comment on above: Performed By: #### L 501.5200, L100.0100, L500.4050, L501.2300 ####[facility] [address] [place], [address] Basophils/100 WBC (Bld) 1.1 % High 0-1 [facility] Comment on above: Performed By: #### L 501.5200, L100.0100, L500.4050, L501.2300 ####[facility] [address] [place], [address] Eosinophils/100 WBC (Bld) 3.4 % Normal 0-5 [facility] Comment on above: Performed By: #### L 501.5200, L100.0100, L500.4050, L501.2300 ####[facility] [address] [place], [address] Erythrocyte distribution width (RBC) [Ratio] 13.3 % Normal 11.6-14.6 [facility] Comment on above: Performed By: #### L 501.5200, L100.0100, L500.4050, L501.2300 ####[facility] [address] [place], [address] Hematocrit (Bld) [Volume fraction] 40.6 % Normal 40-54 [facility] Comment on above: Performed By: #### L 501.5200, L100.0100, L500.4050, L501.2300 ####[facility] [address] [place], [address] Hemoglobin (Bld) [Mass/Vol] 13.3 g/dL Normal 13.0-16.5 [facility] Comment on above: Performed By: #### L 501.5200, L100.0100, L500.4050, L501.2300 ####[facility] [address] [place], [address] IG% 0.200 Normal 0.0-0.9 [facility] Comment on above: Result Comment: IG% - Immature Granulocytes (promyelocytes, myelocytes andmetamyelocytes) > 1% indicates that a LEFT SHIFT is Present. Performed By: #### L 501.5200, L100.0100, L500.4050, L501.2300 ####[facility] [address] [place], [address] Lymphocytes/100 WBC (Bld) 19.8 % Normal 19-41 [facility] Comment on above: Performed By: #### L 501.5200, L100.0100, L500.4050, L501.2300 ####[facility] [address] [place], [address] MCH (RBC) [Entitic mass] 31.2 pg Normal 27.0-32.0 [facility] Comment on above: Performed By: #### L 501.5200, L100.0100, L500.4050, L501.2300 ####[facility] [address] [place], [address] MCHC (RBC) [Mass/Vol] 32.8 g/dL Normal 32-[address] [facility] Comment on above: Performed By: #### L 501.5200, L100.0100, L500.4050, L501.2300 ####[facility] [address] [place], [address] MCV (RBC) [Entitic vol] 95.3 fL High 80-94 [facility] Comment on above: Performed By: #### L 501.5200, L100.0100, L500.4050, L501.2300 ####[facility] [address] [place], [address] Monocytes/100 WBC (Bld) 15.2 % High 0-10 [facility] Comment on above: Performed By: #### L 501.5200, L100.0100, L500.4050, L501.2300 ####[facility] [address] [place], [address] Neutrophils/100 WBC (Bld) 60.3 % Normal 47-70 [facility] Comment on above: Performed By: #### L 501.5200, L100.0100, L500.4050, L501.2300 ####[facility] [address] [place], [address] Nucleated RBC (Bld) [#/Vol] 0 10*3/uL Normal 0-5 [facility] Comment on above: Performed By: #### L 501.5200, L100.0100, L500.4050, L501.2300 ####[facility] [address] [place], [address] Platelet mean volume (Bld) [Entitic vol] 9.9 fL Normal 6.2-12.0 [facility] Comment on above: Performed By: #### L 501.5200, L100.0100, L500.4050, L501.2300 ####[facility] [address] [place], [address] Platelets (Bld) [#/Vol] 242 10*3/uL Normal 150-450 [facility] Comment on above: Performed By: #### L 501.5200, L100.0100, L500.4050, L501.2300 ####[facility] [address] [place], [address] RBC (Bld) [#/Vol] 4.26 10*6/uL Low 4.6-6.2 [facility] Comment on above: Performed By: #### L 501.5200, L100.0100, L500.4050, L501.2300 ####[facility] [address] [place], [address] RDW SD 46.7 fl High 35.1-43.9 [facility] Comment on above: Performed By: #### L 501.5200, L100.0100, L500.4050, L501.2300 ####[facility] [address] [place], [address] WBC (Bld) [#/Vol] 4.7 10*3/uL Normal 4.4-11.0 [facility] Comment on above: Performed By: #### L 501.5200, L100.0100, L500.4050, L501.2300 ####[facility] [address] [place], [address] COVID 19 AG RAPID (ОЛЕГ Dixon)on 08-26-2024 SARS-CoV-2 (COVID-19) RNA ALEENA+probe Ql (Unsp spec) Normal [facility] Comment on above: Performed By: #### M 100.505 ####[facility] [address] [place], [address] COVID-19 virus antigen assay Ordered By: Celia Toribio on 08-26-2024 SARS-CoV-2 (COVID-19) Ag IA.rapid Ql (Resp) [facility] Comprehensive Metabolic Prof ilon 08-26-2024 Albumin [Mass/Vol] 4.0 g/dL Normal 3.4-4.8 [facility] Comment on above: Performed By: #### L 501.5200, L100.0100, L500.4050, L501.2300 ####[facility] [address] [place], [address] Albumin/Globulin [Mass ratio] 1.4 {ratio} Normal 0.9-2.4 [facility] Comment on above: Performed By: #### L 501.5200, L100.0100, L500.4050, L501.2300 ####[facility] [address] [place], [address] ALK PHOS 67 U/L Normal 40-129 [facility] Comment on above: Performed By: #### L 501.5200, L100.0100, L500.4050, L501.2300 ####[facility] [address] [place], [address] ALT [Catalytic activity/Vol] 28 U/L Normal <=46 [facility] Comment on above: Performed By: #### L 501.5200, L100.0100, L500.4050, L501.2300 ####[facility] [address] [place], [address] AST [Catalytic activity/Vol] 23 U/L Normal <=37 [facility] Comment on above: Performed By: #### L 501.5200, L100.0100, L500.4050, L501.2300 ####[facility] [address] [place], [address] Bilirubin [Mass/Vol] 0.25 mg/dL Normal 0.00-1.30 [facility] Comment on above: Performed By: #### L 501.5200, L100.0100, L500.4050, L501.2300 ####[facility] [address] [place], [address] BUN/CRE 21.8 RATIO High 10-20 [facility] Comment on above: Performed By: #### L 501.5200, L100.0100, L500.4050, L501.2300 ####[facility] [address] [place], [address] Calcium [Mass/Vol] 9.4 mg/dL Normal 7.6-11.0 [facility] Comment on above: Performed By: #### L 501.5200, L100.0100, L500.4050, L501.2300 ####[facility] [address] [place], [address] Chloride [Moles/Vol] 105 mmol/L Normal 98-108 [facility] Comment on above: Performed By: #### L 501.5200, L100.0100, L500.4050, L501.2300 ####[facility] [address] [place], [address] CO2 [Moles/Vol] 17.6 mmol/L Low 21.0-32.0 [facility] Comment on above: Performed By: #### L 501.5200, L100.0100, L500.4050, L501.2300 ####[facility] [address] [place], [address] Creatinine [Mass/Vol] 1.04 mg/dL Normal 0.70-1.[address] [facility] Comment on above: Performed By: #### L 501.5200, L100.0100, L500.4050, L501.2300 ####[facility] [address] [place], [address] ECRCL 58.77 ml/min Normal 50-250 [facility] Comment on above: Performed By: #### L 501.5200, L100.0100, L500.4050, L501.2300 ####[facility] [address] [place], [address] GAP 16 High 5-15 [facility] Comment on above: Performed By: #### L 501.5200, L100.0100, L500.4050, L501.2300 ####[facility] [address] [place], [address] GFR/1.73 sq M.predicted among non-blacks MDRD (S/P/Bld) [Vol rate/Area] 75 mL/min/{1.73_m2} Normal >60 [facility] Comment on above: Result Comment: mL/m in/1.73m2 CKD-EPI Creatinine Equation (2020) Performed By: #### L 501.5200, L100.0100, L500.4050, L501.2300 ####[facility] [address] [place], [address] Globulin (S) [Mass/Vol] 2.9 g/dL Normal 2.2-4.2 [facility] Comment on above: Performed By: #### L 501.5200, L100.0100, L500.4050, L501.2300 ####[facility] [address] [place], [address] Glucose [Mass/Vol] 88 mg/dL Normal 70-99 [facility] Comment on above: Performed By: #### L 501.5200, L100.0100, L500.4050, L501.2300 ####[facility] [address] [place], [address] Potassium [Moles/Vol] 3.6 mmol/L Normal 3.3-5.[address] [facility] Comment on above: Performed By: #### L 501.5200, L100.0100, L500.4050, L501.2300 ####[facility] [address] [place], [address] Sodium [Moles/Vol] 139 mmol/L Normal 133-145 [facility] Comment on above: Performed By: #### L 501.5200, L100.0100, L500.4050, L501.2300 ####[facility] [address] [place], [address] T PROT 6.9 g/dL Normal 5.9-8.4 [facility] Comment on above: Performed By: #### L 501.5200, L100.0100, L500.4050, L501.2300 ####[facility] [address] [place], [address] Urea nitrogen [Mass/Vol] 23 mg/dL High 4-19 [facility] Comment on above: Performed By: #### L 501.5200, L100.0100, L500.4050, L501.2300 ####[facility] [address] [place], [address] Laboratory - Chemistry and C hemistry - challengeOrdered By: Lisha Talamantes on 08-26-2024 AST [Catalytic activity/Vol] 23 U/L <38 [facility] Lactic Acidon 08-26-2024 Lactate [Moles/Vol] 1.1 mmol/L Normal 0.0-2.0 [facility] Comment on above: Order Comment: Y Performed By: #### L 503.6005 ####[facility] [address] [place], [place], [id number] Lactic acid measurementOrder ed By: Celia Toribio on 08-26-2024 Lactate [Moles/Vol] 1.1 mmol/L 0.0-2.0 [facility] Magnesiumon 08-26-2024 Magnesium [Mass/Vol] 1.9 mg/dL Normal 1.5-2.2 [facility] Comment on above: Performed By: #### L 501.5200, L100.0100, L500.4050, L501.2300 ####[facility] [address] [place], [place], [address] Magnesium (Unsp spec) [Mass/ Vol]Ordered By: Lisha Talamantes on 08-26-2024 Magnesium [Mass/Vol] 1.9 mg/dL 1.5-2.2 [facility] Magnesium measurement (mass/ volume)Ordered By: Lisha Talamantes on 08-26-2024 Magnesium (Unsp spec) [Mass/Vol] 1.9 mg/dL 1.5-2.2 [facility] Phosphoruson 08-26-2024 Phosphate [Mass/Vol] 3.1 mg/dL Normal 2.7-4.5 [facility] Comment on above: Performed By: #### L 501.5200, L100.0100, L500.4050, L501.2300 ####[facility] [address] [place], [place], [address] RESPIRATORY PANEL MOLECULARo n 08-26-2024 RP PANEL Normal [facility] Comment on above: Performed By: #### M 100.638 ####[facility] [address] [place], [place], [address] Respiratory pathogens DNA an d RNA panel ALEENA+probe (Resp)Ordered By: Celia Toribio on 08-26-2024 Respiratory Panel (PCR) [facility] Respiratory pathogens detect ion panel by molecular detection methodOrdered By: Celia Toribio on 08-26-2024 Respiratory pathogens DNA and RNA panel ALEENA+probe (Resp) [facility] SARS-CoV-2 (COVID-19) Ag IA. rapid Ql (Resp)Ordered By: Celia Toribio on 08-26-2024 SARS-CoV-2 Antigen (Rapid) [facility] Serum globulin measurementOr dered By: Lisha Talamantes on 08-26-2024 Globulin (S) [Mass/Vol] 2.9 g/dL 2.2-4.2 [facility] Serum or plasma alanine saul otransferase (ALT) measurementOrdered By: Lihsa Talamantes on 08-26-2024 ALT [Catalytic activity/Vol] 28 U/L <47 [facility] Serum or plasma albumin luis urement (mass/volume)Ordered By: Lisha Talamantes on 08-26-2024 Albumin [Mass/Vol] 4.0 g/dL 3.4-4.8 [facility] Serum or plasma albumin/glob ulin mass ratioOrdered By: Lisha Talamantes on 08-26-2024 Albumin/Globulin [Mass ratio] 1.4 {ratio} 0.9-2.4 [facility] Serum or plasma alkaline kathleen sphatase measurementOrdered By: Lisha Talamantes on 08-26-2024 ALP [Catalytic activity/Vol] 67 U/L 40-129 [facility] Serum phosphorus measurement Ordered By: Lisha Talamantes on 08-26-2024 Phosphorus Level 3.1 mg/dL 2.7-4.5 [facility] Total proteinOrdered By: Ying Talamantes on 08-26-2024 Protein [Mass/Vol] 6.9 g/dL 5.9-8.4 [facility] Absolute neutrophil countOrd ered By: Jaden Jauregui on 08-25-2024 Neutrophils (Bld) [#/Vol] 4.6 10*3/uL 2.0-7.7 [facility] Anion gap in Serum or Plasma Ordered By: Jaden Jauregui on 08-25-2024 Anion gap [Moles/Vol] 13 mmol/L 5-[address] [facility] BUN/creatinine ratioOrdered By: Jaden Jauregui on 08-25-2024 Urea nitrogen/Creatinine [Mass ratio] 21.4 mg/mg High 10-20 [facility] Basophil percentageOrdered B y: Jaden Jauregui on 08-25-2024 Basophils/100 WBC (Bld) 0.8 % 0-1 [facility] Bilirubin, totalOrdered By: Jaden Jauregui on 08-25-2024 Bilirubin [Mass/Vol] 0.22 mg/dL 0.00-1.30 [facility] CBC W/Diff, Automatedon Absolute Lymph 0.61 X10 3/uL Low 0.83-4.51 [facility] Comment on above: Performed By: #### L 500.4050, L100.0100 ####[facility] [address] [place], [address] Absolute Neut 4.6 X10 3/uL Normal 2.0-7.7 [facility] Comment on above: Performed By: #### L 500.4050, L100.0100 ####[facility] [address] [place], [address] Basophils/100 WBC (Bld) 0.8 % Normal 0-1 [facility] Comment on above: Performed By: #### L 500.4050, L100.0100 ####[facility] [address] [place], [address] Eosinophils/100 WBC (Bld) 0.3 % Normal 0-5 [facility] Comment on above: Performed By: #### L 500.4050, L100.0100 ####[facility] [address] [place], [address] Erythrocyte distribution width (RBC) [Ratio] 13.2 % Normal 11.6-14.6 [facility] Comment on above: Performed By: #### L 500.4050, L100.0100 ####[facility] [address] [place], [address] Hematocrit (Bld) [Volume fraction] 43.3 % Normal 40-54 [facility] Comment on above: Performed By: #### L 500.4050, L100.0100 ####[facility] [address] [place], [address] Hemoglobin (Bld) [Mass/Vol] 14.2 g/dL Normal 13.0-16.5 [facility] Comment on above: Performed By: #### L 500.4050, L100.0100 ####[facility] [address] [place], [address] IG% 0.300 Normal 0.0-0.9 [facility] Comment on above: Result Comment: IG% - Immature Granulocytes (promyelocytes, myelocytes andmetamyelocytes) > 1% indicates that a LEFT SHIFT is Present. Performed By: #### L 500.4050, L100.0100 ####[facility] [address] [place], [address] Lymphocytes/100 WBC (Bld) 10.3 % Low 19-41 [facility] Comment on above: Performed By: #### L 500.4050, L100.0100 ####[facility] [address] [place], [address] MCH (RBC) [Entitic mass] 31.4 pg Normal 27.0-32.0 [facility] Comment on above: Performed By: #### L 500.4050, L100.0100 ####[facility] [address] [place], [address] MCHC (RBC) [Mass/Vol] 32.8 g/dL Normal 32-[address] [facility] Comment on above: Performed By: #### L 500.4050, L100.0100 ####[facility] [address] [place], [address] MCV (RBC) [Entitic vol] 95.8 fL High 80-94 [facility] Comment on above: Performed By: #### L 500.4050, L100.0100 ####[facility] [address] [place], [address] Monocytes/100 WBC (Bld) 9.9 % Normal 0-10 [facility] Comment on above: Performed By: #### L 500.4050, L100.0100 ####[facility] [address] [place], [address] Neutrophils/100 WBC (Bld) 78.4 % High 47-70 [facility] Comment on above: Performed By: #### L 500.4050, L100.0100 ####[facility] [address] [place], [address] Nucleated RBC (Bld) [#/Vol] 0 10*3/uL Normal 0-5 [facility] Comment on above: Performed By: #### L 500.4050, L100.0100 ####[facility] [address] [place], [address] Platelet mean volume (Bld) [Entitic vol] 9.5 fL Normal 6.2-12.0 [facility] Comment on above: Performed By: #### L 500.4050, L100.0100 ####[facility] [address] [place], [address] Platelets (Bld) [#/Vol] 245 10*3/uL Normal 150-450 [facility] Comment on above: Performed By: #### L 500.4050, L100.0100 ####[facility] [address] [place], [address] RBC (Bld) [#/Vol] 4.52 10*6/uL Low 4.6-6.2 [facility] Comment on above: Performed By: #### L 500.4050, L100.0100 ####[facility] [address] [place], [address] RDW SD 46.6 fl High 35.1-43.9 [facility] Comment on above: Performed By: #### L 500.4050, L100.0100 ####[facility] [address] [place], [address] WBC (Bld) [#/Vol] 5.9 10*3/uL Normal 4.4-11.0 [facility] Comment on above: Performed By: #### L 500.4050, L100.0100 ####[facility] [address] [place], [address] Carbon dioxide, total [Moles /volume] in Central venous bloodOrdered By: Jaden Jauregui on 08-25-2024 CO2 [Moles/Vol] 24.5 mmol/L 21.0-32.0 [facility] Chest 1 View (Portable)on Chest 1 View (Portable) Normal [facility] Chloride assayOrdered By: Joseph Jauregui on 08-25-2024 Chloride [Moles/Vol] 102 mmol/L 98-108 [facility] Comprehensive Metabolic Prof ilon 08-25-2024 Albumin [Mass/Vol] 4.5 g/dL Normal 3.4-4.8 [facility] Comment on above: Performed By: #### L 500.4050, L100.0100 ####[facility] [address] [place], [address] Albumin/Globulin [Mass ratio] 1.4 {ratio} Normal 0.9-2.4 [facility] Comment on above: Performed By: #### L 500.4050, L100.0100 ####[facility] [address] [place], [address] ALK PHOS 77 U/L Normal 40-129 [facility] Comment on above: Performed By: #### L 500.4050, L100.0100 ####[facility] [address] [place], [address] ALT [Catalytic activity/Vol] 32 U/L Normal <=46 [facility] Comment on above: Performed By: #### L 500.4050, L100.0100 ####[facility] [address] [place], [place], AST [Catalytic activity/Vol] 26 U/L Normal <=37 [facility] Comment on above: Performed By: #### L 500.4050, L100.0100 ####[facility] [address] [place], [address] Bilirubin [Mass/Vol] 0.22 mg/dL Normal 0.00-1.30 [facility] Comment on above: Performed By: #### L 500.4050, L100.0100 ####[facility] [address] [place], [address] BUN/CRE 21.4 RATIO High 10-20 [facility] Comment on above: Performed By: #### L 500.4050, L100.0100 ####[facility] [address] [place], [address] Calcium [Mass/Vol] 10.0 mg/dL Normal 7.6-11.0 [facility] Comment on above: Performed By: #### L 500.4050, L100.0100 ####[facility] [address] [place], [address] Chloride [Moles/Vol] 102 mmol/L Normal 98-108 [facility] Comment on above: Performed By: #### L 500.4050, L100.0100 ####[facility] [address] [place], [address] CO2 [Moles/Vol] 24.5 mmol/L Normal 21.0-32.0 [facility] Comment on above: Performed By: #### L 500.4050, L100.0100 ####[facility] [address] [place], [address] Creatinine [Mass/Vol] 1.17 mg/dL Normal 0.70-1.[address] [facility] Comment on above: Performed By: #### L 500.4050, L100.0100 ####[facility] [address] [place], [address] GAP 13 Normal 5-15 [facility] Comment on above: Performed By: #### L 500.4050, L100.0100 ####[facility] [address] [place], [address] GFR/1.73 sq M.predicted among non-blacks MDRD (S/P/Bld) [Vol rate/Area] 65 mL/min/{1.73_m2} Normal >60 [facility] Comment on above: Result Comment: mL/m in/1.73m2 CKD-EPI Creatinine Equation (2020) Performed By: #### L 500.4050, L100.0100 ####[facility] [address] [place], [address] Globulin (S) [Mass/Vol] 3.2 g/dL Normal 2.2-4.2 [facility] Comment on above: Performed By: #### L 500.4050, L100.0100 ####[facility] [address] [place], [address] Glucose [Mass/Vol] 98 mg/dL Normal 70-99 [facility] Comment on above: Performed By: #### L 500.4050, L100.0100 ####[facility] [address] [place], [address] Potassium [Moles/Vol] 3.8 mmol/L Normal 3.3-5.[address] [facility] Comment on above: Performed By: #### L 500.4050, L100.0100 ####[facility] [address] [place], [address] Sodium [Moles/Vol] 139 mmol/L Normal 133-145 [facility] Comment on above: Performed By: #### L 500.4050, L100.0100 ####[facility] [address] [place], [address] T PROT 7.7 g/dL Normal 5.9-8.4 [facility] Comment on above: Performed By: #### L 500.4050, L100.0100 ####[facility] [address] [place], [address] Urea nitrogen [Mass/Vol] 25 mg/dL High 4-19 [facility] Comment on above: Performed By: #### L 500.4050, L100.0100 ####[facility] [address] [place], [address] Emergency Department Summary on 08-25-2024 Emergency Department Summary Normal [facility] Eosinophil percentageOrdered By: Jaden Jauregui on 08-25-2024 Eosinophils/100 WBC (Bld) 0.3 % 0-5 [facility] Erythrocyte distribution wid th ratioOrdered By: Jaden Jauregui on 08-25-2024 Erythrocyte distribution width (RBC) [Ratio] 13.2 % 11.6-14.6 [facility] Erythrocyte distribution wid th standard deviationOrdered By: Jaden Jauregui on 08-25-2024 Erythrocyte distribution width (RBC) [Entitic vol] 46.6 fL High 35.1-43.9 [facility] GFR/1.73 sq M.predicted gisella g non-blacks MDRD (S/P/Bld) [Vol rate/Area]Ordered By: Jaden Jauregui on 08-25-2024 Estimated GFR (MDRD) Non-Af Amer 65 >60 [facility] Comment on above: mL/min/1.73m2 CKD-EP I Creatinine Equation (2020) H AND P Exam - Hospital[place] 08-25-2024 H&P Exam - Hospitalist Normal [facility] Hematocrit Auto (Bld) [Volum e fraction]Ordered By: Jaden Jauregui on 08-25-2024 Hematocrit (Bld) [Volume fraction] 43.3 % 40-54 [facility] Hemoglobin measurementOrdere d By: Jaden Jauregui on 08-25-2024 Hemoglobin (Bld) [Mass/Vol] 14.2 g/dL 13.0-16.5 [facility] Immature granulocytes/100 WB C Auto (Bld)Ordered By: Jaden Jauregui on 08-25-2024 Immature granulocytes/100 WBC (Bld) 0.300 % 0.0-0.9 [facility] Comment on above: IG% - Immature Granu locytes (promyelocytes, myelocytes and metamyelocytes) > 1% indicates that a LEFT SHIFT is Present. Laboratory - Chemistry and C hemistry - challengeOrdered By: Jaden Jauregui on 08-25-2024 AST [Catalytic activity/Vol] 26 U/L <38 [facility] Lymphocytes Auto (Unsp spec) [#/Vol]Ordered By: Jaden Jauregui on 08-25-2024 Lymphocytes (Bld) [#/Vol] 0.61 10*3/uL Low 0.83-4.51 [facility] Lymphocytes/100 WBC Auto (Un sp spec)Ordered By: Jaden Jauregui on 08-25-2024 Lymphocytes/100 WBC (Bld) 10.3 % Low 19-41 [facility] MCV (mean corpuscular volume ) determinationOrdered By: Jaden Jauregui on 08-25-2024 MCV (RBC) [Entitic vol] 95.8 fL High 80-94 [facility] Mean corpuscular hemoglobin (MCH) determinationOrdered By: Jaden Jauregui on 08-25-2024 MCH (RBC) [Entitic mass] 31.4 pg 27.0-32.0 [facility] Mean corpuscular hemoglobin concentration (MCHC) determinationOrdered By: Jaden Jauregui on 08-25-2024 MCHC (RBC) [Mass/Vol] 32.8 g/dL 32-[address] [facility] Mean platelet volume determi nationOrdered By: Jaden Jauregui on 08-25-2024 Platelet mean volume (Bld) [Entitic vol] 9.5 fL 6.2-12.0 [facility] Monocyte percentageOrdered B y: Jaden Jauregui on 08-25-2024 Monocytes/100 WBC (Bld) 9.9 % 0-10 [facility] Neutrophil percentageOrdered By: Jaden Jauregui on 08-25-2024 Neutrophils/100 WBC (Bld) 78.4 % High 47-70 [facility] Nucleated red blood cell per centageOrdered By: Jaden Jauregui on 08-25-2024 Nucleated RBC/100 WBC (Bld) [Ratio] 0 % 0-5 [facility] Platelet countOrdered By: Joseph Jauregui on 08-25-2024 Platelets (Bld) [#/Vol] 245 10*3/uL 150-450 [facility] Potassium (Unsp spec) [Mass/ Vol]Ordered By: Jaden Jauregui on 08-25-2024 Potassium [Moles/Vol] 3.8 mmol/L 3.3-5.[address] [facility] RBC Auto (Bld) [#/Vol]Ordere d By: Jaden Jauregui on 08-25-2024 RBC (Bld) [#/Vol] 4.52 10*6/uL Low 4.6-6.2 [facility] Serum creatinine measurement (mass/volume)Ordered By: Jaden Jauregui on 08-25-2024 Creatinine [Mass/Vol] 1.17 mg/dL 0.70-1.[address] [facility] Serum globulin measurementOr dered By: Jaden Jauregui on 08-25-2024 Globulin (S) [Mass/Vol] 3.2 g/dL 2.2-4.2 [facility] Serum glucose measurement (m ass/volume)Ordered By: Jaden Jauregui on 08-25-2024 Glucose [Mass/Vol] 98 mg/dL 70-99 [facility] Serum or plasma alanine saul otransferase (ALT) measurementOrdered By: Jaden Jauregui on 08-25-2024 ALT [Catalytic activity/Vol] 32 U/L <47 [facility] Serum or plasma albumin luis urement (mass/volume)Ordered By: Jaden Jauregui on 08-25-2024 Albumin [Mass/Vol] 4.5 g/dL 3.4-4.8 [facility] Serum or plasma albumin/glob ulin mass ratioOrdered By: Jaden Jauregui on 08-25-2024 Albumin/Globulin [Mass ratio] 1.4 {ratio} 0.9-2.4 [facility] Serum or plasma alkaline kathleen sphatase measurementOrdered By: Jaden Jauregui on 08-25-2024 ALP [Catalytic activity/Vol] 77 U/L 40-129 [facility] Serum or plasma calcium luis urement (mass/volume)Ordered By: Jaden Jauregui on 08-25-2024 Calcium [Mass/Vol] 10.0 mg/dL 7.6-11.0 [facility] Serum or plasma urea nitroge n measurement (mass/volume)Ordered By: Jaden Jauregui on 08-25-2024 Urea nitrogen [Mass/Vol] 25 mg/dL High 4-19 [facility] Sodium levelOrdered By: Maurice Jauregui on 08-25-2024 Sodium [Moles/Vol] 139 mmol/L 133-145 [facility] Total proteinOrdered By: Rad Jauregui on 08-25-2024 Protein [Mass/Vol] 7.7 g/dL 5.9-8.4 [facility] White blood cell (WBC) count Ordered By: Jaden Jauregui on 08-25-2024 WBC (Bld) [#/Vol] 5.9 10*3/uL 4.4-11.0 [facility] 30-BD-Tiaspyj DOrdered By: Landry Prather on 07-15-2024 Vitamin D 25-Hydroxy 36.0 ng/mL [facility] Comment on above: Vitamin D 25(OH) Sta tus Range Deficiency <20 ng/mL (50nmol/L) Insufficiency 20 - 30 ng/mL (50 - 75 nmol/L) Sufficiency 30 - 100 ng/mL (75 - 250 nmol/L) Toxicity >100 ng/mL (>250 nmol/L) Absolute neutrophil countOrd ered By: Carla Prather on 07-15-2024 Neutrophils (Bld) [#/Vol] 2.7 10*3/uL 2.0-7.7 [facility] Albumin to globulin ratioOrd ered By: Carla Prather on 07-15-2024 Albumin/Globulin [Mass ratio] 1.0 {ratio} Normal 0.9-2.4 [facility] Comment on above: Order Comment: 414-2 Performed By: #### L 500.4050, L100.0100, L506.1000, L501.9985, L501.7900, L503.0105, L501.5200 ####[facility] [address] [place], [place], [id number] Basophil percentageOrdered B y: Carla Prather on 07-15-2024 Basophils/100 WBC (Bld) 1.4 % High 0-1 [facility] Bilirubin, totalOrdered By: Carla Prather on 07-15-2024 Bilirubin [Mass/Vol] 0.30 mg/dL Normal 0.20-1.00 [facility] Comment on above: For patients on eltr ombopag therapy, use of Dimension [place] TBIL is not recommended. Order Comment: 414-2 Result Comment: For patients on eltrombopag therapy, use of Dimension [place] TBIL is not recommended. Performed By: #### L 500.4050, L100.0100, L506.1000, L501.9985, L501.7900, L503.0105, L501.5200 ####[facility] [address] [place], [place], [id number] Blood urea nitrogen (BUN)/cr eatinine ratioOrdered By: Carla Prather on 07-15-2024 Urea nitrogen/Creatinine [Mass ratio] 25.4 mg/mg High 10-20 [facility] CBC W/Diff, Automatedon 06-20 Absolute Lymph 1.38 X10 3/uL Normal 0.83-4.51 [facility] Comment on above: Order Comment: 414-2 Performed By: #### L 500.4050, L100.0100, L506.1000, L501.9985, L501.7900, L503.0105, L501.5200 ####[facility] [address] [place], [address] Absolute Neut 2.7 X10 3/uL Normal 2.0-7.7 [facility] Comment on above: Order Comment: 414-2 Performed By: #### L 500.4050, L100.0100, L506.1000, L501.9985, L501.7900, L503.0105, L501.5200 ####[facility] [address] [place], [address] Basophils/100 WBC (Bld) 1.4 % High 0-1 [facility] Comment on above: Order Comment: 414-2 Performed By: #### L 500.4050, L100.0100, L506.1000, L501.9985, L501.7900, L503.0105, L501.5200 ####[facility] [address] [place], [address] Eosinophils/100 WBC (Bld) 9.4 % High 0-5 [facility] Comment on above: Order Comment: 414-2 Performed By: #### L 500.4050, L100.0100, L506.1000, L501.9985, L501.7900, L503.0105, L501.5200 ####[facility] [address] [place], [address] Erythrocyte distribution width (RBC) [Ratio] 12.8 % Normal 11.6-14.6 [facility] Comment on above: Order Comment: 414-2 Performed By: #### L 500.4050, L100.0100, L506.1000, L501.9985, L501.7900, L503.0105, L501.5200 ####[facility] [address] [place], [address] Hematocrit (Bld) [Volume fraction] 45.8 % Normal 40-54 [facility] Comment on above: Order Comment: 414-2 Performed By: #### L 500.4050, L100.0100, L506.1000, L501.9985, L501.7900, L503.0105, L501.5200 ####[facility] [address] [place], [address] Hemoglobin (Bld) [Mass/Vol] 14.8 g/dL Normal 13.0-16.5 [facility] Comment on above: Order Comment: 414-2 Performed By: #### L 500.4050, L100.0100, L506.1000, L501.9985, L501.7900, L503.0105, L501.5200 ####[facility] [address] [place], [address] IG% 0.400 Normal 0.0-0.9 [facility] Comment on above: Order Comment: 414-2 Result Comment: IG% - Immature Granulocytes (promyelocytes, myelocytes andmetamyelocytes) > 1% indicates that a LEFT SHIFT is Present. Performed By: #### L 500.4050, L100.0100, L506.1000, L501.9985, L501.7900, L503.0105, L501.5200 ####[facility] [address] [place], [address] Lymphocytes/100 WBC (Bld) 26.9 % Normal 19-41 [facility] Comment on above: Order Comment: 414-2 Performed By: #### L 500.4050, L100.0100, L506.1000, L501.9985, L501.7900, L503.0105, L501.5200 ####[facility] [address] [place], [address] MCH (RBC) [Entitic mass] 31.2 pg Normal 27.0-32.0 [facility] Comment on above: Order Comment: 414-2 Performed By: #### L 500.4050, L100.0100, L506.1000, L501.9985, L501.7900, L503.0105, L501.5200 ####[facility] [address] [place], [address] MCHC (RBC) [Mass/Vol] 32.3 g/dL Normal 32-[address] [facility] Comment on above: Order Comment: 414-2 Performed By: #### L 500.4050, L100.0100, L506.1000, L501.9985, L501.7900, L503.0105, L501.5200 ####[facility] [address] [place], [address] MCV (RBC) [Entitic vol] 96.4 fL High 80-94 [facility] Comment on above: Order Comment: 414-2 Performed By: #### L 500.4050, L100.0100, L506.1000, L501.9985, L501.7900, L503.0105, L501.5200 ####[facility] [address] [place], [address] Monocytes/100 WBC (Bld) 8.8 % Normal 0-10 [facility] Comment on above: Order Comment: 414-2 Performed By: #### L 500.4050, L100.0100, L506.1000, L501.9985, L501.7900, L503.0105, L501.5200 ####[facility] [address] [place], [address] Neutrophils/100 WBC (Bld) 53.1 % Normal 47-70 [facility] Comment on above: Order Comment: 414-2 Performed By: #### L 500.4050, L100.0100, L506.1000, L501.9985, L501.7900, L503.0105, L501.5200 ####[facility] [address] [place], [address] Nucleated RBC (Bld) [#/Vol] 0 10*3/uL Normal 0-5 [facility] Comment on above: Order Comment: 414-2 Performed By: #### L 500.4050, L100.0100, L506.1000, L501.9985, L501.7900, L503.0105, L501.5200 ####[facility] [address] [place], [address] Platelet mean volume (Bld) [Entitic vol] 9.6 fL Normal 6.2-12.0 [facility] Comment on above: Order Comment: 414-2 Performed By: #### L 500.4050, L100.0100, L506.1000, L501.9985, L501.7900, L503.0105, L501.5200 ####[facility] [address] [place], [address] Platelets (Bld) [#/Vol] 295 10*3/uL Normal 150-450 [facility] Comment on above: Order Comment: 414-2 Performed By: #### L 500.4050, L100.0100, L506.1000, L501.9985, L501.7900, L503.0105, L501.5200 ####[facility] [address] [place], [address] RBC (Bld) [#/Vol] 4.75 10*6/uL Normal 4.6-6.2 [facility] Comment on above: Order Comment: 414-2 Performed By: #### L 500.4050, L100.0100, L506.1000, L501.9985, L501.7900, L503.0105, L501.5200 ####[facility] [address] [place], [address] RDW SD 45.4 fl High 35.1-43.9 [facility] Comment on above: Order Comment: 414-2 Performed By: #### L 500.4050, L100.0100, L506.1000, L501.9985, L501.7900, L503.0105, L501.5200 ####[facility] [address] [place], [place], [id number] WBC (Bld) [#/Vol] 5.1 10*3/uL Normal 4.4-11.0 [facility] Comment on above: Order Comment: 414-2 Performed By: #### L 500.4050, L100.0100, L506.1000, L501.9985, L501.7900, L503.0105, L501.5200 ####[facility] [address] [place], [place], [address] Carbamazepine (Tegretol)on 07-15-2024 CARBAMAZEPINE 7.0 ug/mL Normal 4.0-12.0 [facility] Comment on above: Order Comment: 414-2 Performed By: #### L 500.4050, L100.0100, L506.1000, L501.9985, L501.7900, L503.0105, L501.5200 ####[facility] [address] [place], [place], [id number] Carbon dioxide measurementOr dered By: Carla Prather on 07-15-2024 CO2 [Moles/Vol] 24.0 mmol/L Normal 21.0-32.0 [facility] Comment on above: Order Comment: 414-2 Performed By: #### L 500.4050, L100.0100, L506.1000, L501.9985, L501.7900, L503.0105, L501.5200 ####[facility] [address] [place], [address] Chloride measurementOrdered By: Carla Prather on 07-15-2024 Chloride [Moles/Vol] 107 mmol/L Normal 98-107 [facility] Comment on above: Order Comment: 414-2 Performed By: #### L 500.4050, L100.0100, L506.1000, L501.9985, L501.7900, L503.0105, L501.5200 ####[facility] [address] [place], [place], [id number] Comprehensive Metabolic Prof ilon 07-15-2024 ALK P 70 U/L Normal 45-117 [facility] Comment on above: Order Comment: 414-2 Performed By: #### L 500.4050, L100.0100, L506.1000, L501.9985, L501.7900, L503.0105, L501.5200 ####[facility] [address] [place], [place], [id number] BUN/CRE 25.4 RATIO High 10-20 [facility] Comment on above: Order Comment: 414-2 Performed By: #### L 500.4050, L100.0100, L506.1000, L501.9985, L501.7900, L503.0105, L501.5200 ####[facility] [address] [place], [address] CA,Total 10.1 mg/dL Normal 8.5-10.1 [facility] Comment on above: Order Comment: 414-2 Performed By: #### L 500.4050, L100.0100, L506.1000, L501.9985, L501.7900, L503.0105, L501.5200 ####[facility] [address] [place], [place], [address] EST GFR - AA 77 mL/min Normal >60 [facility] Comment on above: Order Comment: 414-2 Result Comment: Afri can Omani GFR Calc Performed By: #### L 500.4050, L100.0100, L506.1000, L501.9985, L501.7900, L503.0105, L501.5200 ####[facility] [address] [place], [address] GAP 7 Normal 5-15 [facility] Comment on above: Order Comment: 414-2 Performed By: #### L 500.4050, L100.0100, L506.1000, L501.9985, L501.7900, L503.0105, L501.5200 ####[facility] [address] [place], [address] GFR/1.73 sq M.predicted among non-blacks MDRD (S/P/Bld) [Vol rate/Area] 64 mL/min/{1.73_m2} Normal >60 [facility] Comment on above: Order Comment: 414-2 Result Comment: Non- GFR Calc Performed By: #### L 500.4050, L100.0100, L506.1000, L501.9985, L501.7900, L503.0105, L501.5200 ####[facility] [address] [place], [address] T PROT 8.0 g/dL Normal 6.4-8.2 [facility] Comment on above: Order Comment: 414-2 Performed By: #### L 500.4050, L100.0100, L506.1000, L501.9985, L501.7900, L503.0105, L501.5200 ####[facility] [address] [place], [place], [id number] Comprehensive Metabolic Prof ilOrdered By: Carla Prather on 07-15-2024 AST [Catalytic activity/Vol] 23 U/L Normal 15-37 [facility] Comment on above: Order Comment: 414-2 Performed By: #### L 500.4050, L100.0100, L506.1000, L501.9985, L501.7900, L503.0105, L501.5200 ####[facility] [address] [place], [address] Eosinophil percentageOrdered By: Carla Prather on 07-15-2024 Eosinophils/100 WBC (Bld) 9.4 % High 0-5 [facility] Erythrocyte distribution wid th ratioOrdered By: Carlaangeline Prather on 07-15-2024 Erythrocyte distribution width (RBC) [Ratio] 12.8 % 11.6-14.6 [facility] Erythrocyte distribution wid th standard deviationOrdered By: Carla Prather on 07-15-2024 Erythrocyte distribution width (RBC) [Entitic vol] 45.4 fL High 35.1-43.9 [facility] Estimated glomerular filtrat ion rate (GFR) AmericanOrdered By: Carla Prather on 07-15-2024 Estimated GFR (MDRD) Amer 77 mL/min >60 [facility] Comment on above: GFR Calc Glomerular filtration rate ( GFR) estimationOrdered By: Carla Prather on 07-15-2024 Estimated GFR (MDRD) Non-Af Amer 64 mL/min >60 [facility] Comment on above: Non- GFR Calc Glucose measurementOrdered B y: Carla Prather on 07-15-2024 Glucose [Mass/Vol] 103 mg/dL Normal 74-106 [facility] Comment on above: Fasting Glucose resu lt from 100 to 125 mg/dL suggests IMPAIRED HOMEOSTASIS per A.D.A. criteria. Order Comment: 414-2 Result Comment: Fast ing Glucose result from 100 to 125 mg/dLsuggests IMPAIRED HOMEOSTASIS per A.D.A. criteria. Performed By: #### L 500.4050, L100.0100, L506.1000, L501.9985, L501.7900, L503.0105, L501.5200 ####[facility] [address] [place], [place], [address] Hematocrit Auto (Bld) [Volum e fraction]Ordered By: Carla Prather on 07-15-2024 Hematocrit (Bld) [Volume fraction] 45.8 % 40-54 [facility] Hemoglobin A1con 07-15-2024 HbA1c (Bld) [Mass fraction] 5.6 % Normal 3.8-5.6 [facility] Comment on above: Order Comment: 414-2 Result Comment: Norm al < 5.7 % Prediabetic 5.7 - 6.4 % Diabetic >or= 6.5 % Please note range changes. Performed By: #### L 500.4050, L100.0100, L506.1000, L501.9985, L501.7900, L503.0105, L501.5200 ####[facility] [address] [place], [place], [id number] Hemoglobin A1c percentageOrd ered By: Carla Prather on 07-15-2024 HbA1c (Bld) [Mass fraction] 5.6 % 3.8-5.6 [facility] Comment on above: Normal < 5.7 % Predi abetic 5.7 - 6.4 % Diabetic >or= 6.5 % Please note range changes. Hemoglobin measurementOrdere d By: Carla Prather on 07-15-2024 Hemoglobin (Bld) [Mass/Vol] 14.8 g/dL 13.0-16.5 [facility] Immature granulocytes/100 WB C Auto (Bld)Ordered By: Carla Prather on 07-15-2024 Immature granulocytes/100 WBC (Bld) 0.400 % 0.0-0.9 [facility] Comment on above: IG% - Immature Granu locytes (promyelocytes, myelocytes and metamyelocytes) > 1% indicates that a LEFT SHIFT is Present. Lymphocytes Auto (Unsp spec) [#/Vol]Ordered By: Carla Prather on 07-15-2024 Lymphocytes (Bld) [#/Vol] 1.38 10*3/uL 0.83-4.51 [facility] Lymphocytes/100 WBC Auto (Un sp spec)Ordered By: Carla Prather on 07-15-2024 Lymphocytes/100 WBC (Bld) 26.9 % 19-41 [facility] MCV (mean corpuscular volume ) determinationOrdered By: Carla Prather on 07-15-2024 MCV (RBC) [Entitic vol] 96.4 fL High 80-94 [facility] Magnesium measurementOrdered By: Carla Prather on 07-15-2024 Magnesium [Mass/Vol] 2.1 mg/dL Normal 1.6-2.6 [facility] Comment on above: Order Comment: 414-2 Performed By: #### L 500.4050, L100.0100, L506.1000, L501.9985, L501.7900, L503.0105, L501.5200 ####[facility] [address] [place], [address] Mean corpuscular hemoglobin (MCH) determinationOrdered By: Carla Prather on 07-15-2024 MCH (RBC) [Entitic mass] 31.2 pg 27.0-32.0 [facility] Mean corpuscular hemoglobin concentration (MCHC) determinationOrdered By: Carla Prather on 07-15-2024 MCHC (RBC) [Mass/Vol] 32.3 g/dL 32-[address] [facility] Mean platelet volume determi nationOrdered By: Carla Prather on 07-15-2024 Platelet mean volume (Bld) [Entitic vol] 9.6 fL 6.2-12.0 [facility] Monocyte percentageOrdered B y: Carla Prather on 07-15-2024 Monocytes/100 WBC (Bld) 8.8 % 0-10 [facility] Neutrophil percentageOrdered By: Carla Prather on 07-15-2024 Neutrophils/100 WBC (Bld) 53.1 % 47-70 [facility] Nucleated red blood cell per centageOrdered By: Carla Prather on 07-15-2024 Nucleated RBC/100 WBC (Bld) [Ratio] 0 % 0-5 [facility] Platelet countOrdered By: Wilfredo Prather on 07-15-2024 Platelets (Bld) [#/Vol] 295 10*3/uL 150-450 [facility] Potassium measurementOrdered By: Carla Prather on 07-15-2024 Potassium [Moles/Vol] 3.8 mmol/L Normal 3.5-5.[address] [facility] Comment on above: Order Comment: 414-2 Performed By: #### L 500.4050, L100.0100, L506.1000, L501.9985, L501.7900, L503.0105, L501.5200 ####[facility] [address] [place], [address] RBC Auto (Bld) [#/Vol]Ordere d By: Carla Prather on 07-15-2024 RBC (Bld) [#/Vol] 4.75 10*6/uL 4.6-6.2 [facility] Serum anion gap measurementO rdered By: Carla Prather on 07-15-2024 Anion gap [Moles/Vol] 7 mmol/L 5-[address] [facility] Serum globulin measurementOr dered By: Carla Prather on 07-15-2024 Globulin (S) [Mass/Vol] 4.1 g/dL Normal 2.2-4.2 [facility] Comment on above: Order Comment: 414-2 Performed By: #### L 500.4050, L100.0100, L506.1000, L501.9985, L501.7900, L503.0105, L501.5200 ####[facility] [address] [place], [place], [id number] Serum or plasma alanine saul otransferase (ALT) measurementOrdered By: Carla Prather on 07-15-2024 ALT [Catalytic activity/Vol] 37 U/L Normal 16-61 [facility] Comment on above: Order Comment: 414-2 Performed By: #### L 500.4050, L100.0100, L506.1000, L501.9985, L501.7900, L503.0105, L501.5200 ####[facility] [address] [place], [address] Serum or plasma albumin luis urement (mass/volume)Ordered By: Carla Prather on 07-15-2024 Albumin [Mass/Vol] 3.9 g/dL Normal 3.2-5.0 [facility] Comment on above: Order Comment: 414-2 Performed By: #### L 500.4050, L100.0100, L506.1000, L501.9985, L501.7900, L503.0105, L501.5200 ####[facility] [address] [place], [place], [id number]45) Serum or plasma alkaline kathleen sphatase measurementOrdered By: Carla Prather on 07-15-2024 ALP [Catalytic activity/Vol] 70 U/L 45-117 [facility] Serum or plasma calcium luis urement (mass/volume)Ordered By: Carla Prather on 07-15-2024 Calcium [Mass/Vol] 10.1 mg/dL 8.5-10.1 [facility] Serum or plasma creatinine m easurement (mass/volume)Ordered By: Carla Prather on 07-15-2024 Creatinine [Mass/Vol] 1.18 mg/dL Normal 0.70-1.[address] [facility] Comment on above: The validity of the calculated GFR & GFRAA in patients over 70 years has not been determined. Clinical correlation is essential. Order Comment: 414-2 Result Comment: The validity of the calculated GFR GFRAA in patients over70 years has not been determined. Clinical correlation isessential. Performed By: #### L 500.4050, L100.0100, L506.1000, L501.9985, L501.7900, L503.0105, L501.5200 ####[facility] [address] [place], [address] Serum or plasma urea nitroge n measurement (mass/volume)Ordered By: Carla Prather on 07-15-2024 Urea nitrogen [Mass/Vol] 30 mg/dL High 7-18 [facility] Comment on above: Order Comment: 414-2 Performed By: #### L 500.4050, L100.0100, L506.1000, L501.9985, L501.7900, L503.0105, L501.5200 ####[facility] [address] [place], [address] Sodium levelOrdered By: Luca Prather on 07-15-2024 Sodium [Moles/Vol] 138 mmol/L Normal 136-145 [facility] Comment on above: Order Comment: 414-2 Performed By: #### L 500.4050, L100.0100, L506.1000, L501.9985, L501.7900, L503.0105, L501.5200 ####[facility] [address] [place], [place], [id number] Total proteinOrdered By: Ming Prather on 07-15-2024 Protein [Mass/Vol] 8.0 g/dL 6.4-8.2 [facility] Vitamin B12on 07-15-2024 Cobalamin (Vitamin B12) [Mass/Vol] 692 pg/mL Normal 91 [facility] Comment on above: Order Comment: 414-2 Performed By: #### L 500.4050, L100.0100, L506.1000, L501.9985, L501.7900, L503.0105, L501.5200 ####[facility] [address] [place], [place], [id number] Vitamin B12 measurementOrder ed By: Carla Prather on 07-15-2024 Cobalamin (Vitamin B12) [Mass/Vol] 692 pg/mL - [facility] Vitamin D,25 Hydroxyon 07-15 Vitamin D 25-OH 36.0 ng/mL Normal [facility] Comment on above: Order Comment: 414-2 Result Comment: Teri min D 25(OH) Status Range Deficiency <20 ng/mL (50nmol/L) Insufficiency 20 - 30 ng/mL (50 - 75 nmol/L) Sufficiency 30 - 100 ng/mL (75 - 250 nmol/L) Toxicity >100 ng/mL (>250 nmol/L) Performed By: #### L 500.4050, L100.0100, L506.1000, L501.9985, L501.7900, L503.0105, L501.5200 ####[facility] [address] [place], [address] White blood cell (WBC) count Ordered By: Carla Prather on 07-15-2024 WBC (Bld) [#/Vol] 5.1 10*3/uL 4.4-11.0 [facility] carBAMazepine [Mass/Vol]Orde red By: Carla Prather on 07-15-2024 Carbamazepine (Tegretol) Level 7.0 ug/mL 4.0-12.0 [facility] Basic Metabolic Profile (BMP )on 04-15-2024 BUN Normal 7-18 [facility] Comment on above: Result Comment: Canc elled via OM: Order cancelled - Patient discharged Performed By: #### L 100.0100, L500.2500 ####[facility] [address] [place], [address] BUN/CRE Normal 10-20 [facility] Comment on above: Result Comment: Canc elled via OM: Order cancelled - Patient discharged Performed By: #### L 100.0100, L500.2500 ####[facility] [address] [place], [address] CA,Total Normal 8.5-10.1 [facility] Comment on above: Result Comment: Canc elled via OM: Order cancelled - Patient discharged Performed By: #### L 100.0100, L500.2500 ####[facility] [address] [place], [address] CL Normal 98-107 [facility] Comment on above: Result Comment: Canc elled via OM: Order cancelled - Patient discharged Performed By: #### L 100.0100, L500.2500 ####[facility] [address] [place], [address] CO2 Normal 21.0-32.0 [facility] Comment on above: Result Comment: Canc elled via OM: Order cancelled - Patient discharged Performed By: #### L 100.0100, L500.2500 ####[facility] [address] [place], [address] CREAT,SERUM Normal 0.70-1.30 [facility] Comment on above: Result Comment: Canc elled via OM: Order cancelled - Patient discharged Performed By: #### L 100.0100, L500.2500 ####[facility] [address] [place], [address] EST GFR Normal >60 [facility] Comment on above: Result Comment: Canc elled via OM: Order cancelled - Patient discharged Performed By: #### L 100.0100, L500.2500 ####[facility] [address] [place], [address] EST GFR - AA Normal >60 [facility] Comment on above: Result Comment: Canc elled via OM: Order cancelled - Patient discharged Performed By: #### L 100.0100, L500.2500 ####[facility] [address] [place], [address] GAP Normal 5-15 [facility] Comment on above: Result Comment: Canc elled via OM: Order cancelled - Patient discharged Performed By: #### L 100.0100, L500.2500 ####[facility] [address] [place], [address] GLU Normal 74-106 [facility] Comment on above: Result Comment: Canc elled via OM: Order cancelled - Patient discharged Performed By: #### L 100.0100, L500.2500 ####[facility] [address] [place], [address] Potassium Normal 3.5-5.1 [facility] Comment on above: Result Comment: Canc elled via OM: Order cancelled - Patient discharged Performed By: #### L 100.0100, L500.2500 ####[facility] [address] [place], [address] Basic Metabolic Profile (BMP) Normal 136-145 [facility] Comment on above: Result Comment: Canc elled via OM: Order cancelled - Patient discharged Performed By: #### L 100.0100, L500.2500 ####[facility] [address] [place], [address] CBC W/Diff, Automatedon 10-2 Absolute Neut Normal 2.0-7.7 [facility] Comment on above: Result Comment: Canc elled via OM: Order cancelled - Patient discharged Performed By: #### L 100.0100, L500.2500 ####[facility] [address] [place], [address] HCT Normal 40-54 [facility] Comment on above: Result Comment: Canc elled via OM: Order cancelled - Patient discharged Performed By: #### L 100.0100, L500.2500 ####[facility] [address] [place], [address] HGB Normal 13.0-16.5 [facility] Comment on above: Result Comment: Canc elled via OM: Order cancelled - Patient discharged Performed By: #### L 100.0100, L500.2500 ####[facility] [address] [place], [address] MCH Normal 27.0-32.0 [facility] Comment on above: Result Comment: Canc elled via OM: Order cancelled - Patient discharged Performed By: #### L 100.0100, L500.2500 ####[facility] [address] [place], [address] MCHC Normal 32-36 [facility] Comment on above: Result Comment: Canc elled via OM: Order cancelled - Patient discharged Performed By: #### L 100.0100, L500.2500 ####[facility] [address] [place], [address] MCV Normal 80-94 [facility] Comment on above: Result Comment: Canc elled via OM: Order cancelled - Patient discharged Performed By: #### L 100.0100, L500.2500 ####[facility] [address] [place], [address] NEUT% Normal 47-70 [facility] Comment on above: Result Comment: Canc elled via OM: Order cancelled - Patient discharged Performed By: #### L 100.0100, L500.2500 ####[facility] [address] [place], [address] PLT Normal 150-450 [facility] Comment on above: Result Comment: Canc elled via OM: Order cancelled - Patient discharged Performed By: #### L 100.0100, L500.2500 ####[facility] [address] [place], [address] RBC Normal 4.6-6.2 [facility] Comment on above: Result Comment: Canc elled via OM: Order cancelled - Patient discharged Performed By: #### L 100.0100, L500.2500 ####[facility] [address] [place], [address] RDW CV Normal 11.6-14.6 [facility] Comment on above: Result Comment: Canc elled via OM: Order cancelled - Patient discharged Performed By: #### L 100.0100, L500.2500 ####[facility] [address] [place], [address] RDW SD Normal 35.1-43.9 [facility] Comment on above: Result Comment: Canc elled via OM: Order cancelled - Patient discharged Performed By: #### L 100.0100, L500.2500 ####[facility] [address] [place], [address] WBC Normal 4.4-11.0 [facility] Comment on above: Result Comment: Canc elled via OM: Order cancelled - Patient discharged Performed By: #### L 100.0100, L500.2500 ####[facility] [address] [place], [address] Basic Metabolic Profile (BMP )on 04-14-2024 BUN Normal 7-18 [facility] Comment on above: Result Comment: Canc elled via OM: Order cancelled - Patient discharged Performed By: #### L 100.0100, L500.2500 ####[facility] [address] [place], [address] BUN/CRE Normal 10-20 [facility] Comment on above: Result Comment: Canc elled via OM: Order cancelled - Patient discharged Performed By: #### L 100.0100, L500.2500 ####[facility] [address] [place], [address] CA,Total Normal 8.5-10.1 [facility] Comment on above: Result Comment: Canc elled via OM: Order cancelled - Patient discharged Performed By: #### L 100.0100, L500.2500 ####[facility] [address] [place], [address] CL Normal 98-107 [facility] Comment on above: Result Comment: Canc elled via OM: Order cancelled - Patient discharged Performed By: #### L 100.0100, L500.2500 ####[facility] [address] [place], [address] CO2 Normal 21.0-32.0 [facility] Comment on above: Result Comment: Canc elled via OM: Order cancelled - Patient discharged Performed By: #### L 100.0100, L500.2500 ####[facility] [address] [place], [address] CREAT,SERUM Normal 0.70-1.30 [facility] Comment on above: Result Comment: Canc elled via OM: Order cancelled - Patient discharged Performed By: #### L 100.0100, L500.2500 ####[facility] [address] [place], [address] EST GFR Normal >60 [facility] Comment on above: Result Comment: Canc elled via OM: Order cancelled - Patient discharged Performed By: #### L 100.0100, L500.2500 ####[facility] [address] [place], [address] EST GFR - AA Normal >60 [facility] Comment on above: Result Comment: Canc elled via OM: Order cancelled - Patient discharged Performed By: #### L 100.0100, L500.2500 ####[facility] [address] [place], [address] GAP Normal 5-15 [facility] Comment on above: Result Comment: Canc elled via OM: Order cancelled - Patient discharged Performed By: #### L 100.0100, L500.2500 ####[facility] [address] [place], [address] GLU Normal 74-106 [facility] Comment on above: Result Comment: Canc elled via OM: Order cancelled - Patient discharged Performed By: #### L 100.0100, L500.2500 ####[facility] [address] [place], [address] Potassium Normal 3.5-5.1 [facility] Comment on above: Result Comment: Canc elled via OM: Order cancelled - Patient discharged Performed By: #### L 100.0100, L500.2500 ####[facility] [address] [place], [address] Basic Metabolic Profile (BMP) Normal 136-145 [facility] Comment on above: Result Comment: Canc elled via OM: Order cancelled - Patient discharged Performed By: #### L 100.0100, L500.2500 ####[facility] [address] [place], [address] CBC W/Diff, Automatedon 10-2 Absolute Neut Normal 2.0-7.7 [facility] Comment on above: Result Comment: Canc elled via OM: Order cancelled - Patient discharged Performed By: #### L 100.0100, L500.2500 ####[facility] [address] [place], [address] HCT Normal 40-54 [facility] Comment on above: Result Comment: Canc elled via OM: Order cancelled - Patient discharged Performed By: #### L 100.0100, L500.2500 ####[facility] [address] [place], [address] HGB Normal 13.0-16.5 [facility] Comment on above: Result Comment: Canc elled via OM: Order cancelled - Patient discharged Performed By: #### L 100.0100, L500.2500 ####[facility] [address] [place], [address] MCH Normal 27.0-32.0 [facility] Comment on above: Result Comment: Canc elled via OM: Order cancelled - Patient discharged Performed By: #### L 100.0100, L500.2500 ####[facility] [address] [place], [address] MCHC Normal 32-36 [facility] Comment on above: Result Comment: Canc elled via OM: Order cancelled - Patient discharged Performed By: #### L 100.0100, L500.2500 ####[facility] [address] [place], [address] MCV Normal 80-94 [facility] Comment on above: Result Comment: Canc elled via OM: Order cancelled - Patient discharged Performed By: #### L 100.0100, L500.2500 ####[facility] [address] [place], [address] NEUT% Normal 47-70 [facility] Comment on above: Result Comment: Canc elled via OM: Order cancelled - Patient discharged Performed By: #### L 100.0100, L500.2500 ####[facility] [address] [place], [address] PLT Normal 150-450 [facility] Comment on above: Result Comment: Canc elled via OM: Order cancelled - Patient discharged Performed By: #### L 100.0100, L500.2500 ####[facility] [address] [place], [address] RBC Normal 4.6-6.2 [facility] Comment on above: Result Comment: Canc elled via OM: Order cancelled - Patient discharged Performed By: #### L 100.0100, L500.2500 ####[facility] [address] [place], [address] RDW CV Normal 11.6-14.6 [facility] Comment on above: Result Comment: Canc elled via OM: Order cancelled - Patient discharged Performed By: #### L 100.0100, L500.2500 ####[facility] [address] [place], [address] RDW SD Normal 35.1-43.9 [facility] Comment on above: Result Comment: Canc elled via OM: Order cancelled - Patient discharged Performed By: #### L 100.0100, L500.2500 ####[facility] [address] [place], [address] WBC Normal 4.4-11.0 [facility] Comment on above: Result Comment: Canc elled via OM: Order cancelled - Patient discharged Performed By: #### L 100.0100, L500.2500 ####[facility] [address] [place], [address] Basic Metabolic Profile (BMP )on 04-13-2024 BUN Normal 7-18 [facility] Comment on above: Result Comment: Canc elled via OM: Order cancelled - Patient discharged Performed By: #### L 100.0100, L500.2500 ####[facility] [address] [place], [address] BUN/CRE Normal 10-20 [facility] Comment on above: Result Comment: Canc elled via OM: Order cancelled - Patient discharged Performed By: #### L 100.0100, L500.2500 ####[facility] [address] [place], [address] CA,Total Normal 8.5-10.1 [facility] Comment on above: Result Comment: Canc elled via OM: Order cancelled - Patient discharged Performed By: #### L 100.0100, L500.2500 ####[facility] [address] [place], [address] CL Normal 98-107 [facility] Comment on above: Result Comment: Canc elled via OM: Order cancelled - Patient discharged Performed By: #### L 100.0100, L500.2500 ####[facility] [address] [place], [address] CO2 Normal 21.0-32.0 [facility] Comment on above: Result Comment: Canc elled via OM: Order cancelled - Patient discharged Performed By: #### L 100.0100, L500.2500 ####[facility] [address] [place], [address] CREAT,SERUM Normal 0.70-1.30 [facility] Comment on above: Result Comment: Canc elled via OM: Order cancelled - Patient discharged Performed By: #### L 100.0100, L500.2500 ####[facility] [address] [place], [address] EST GFR Normal >60 [facility] Comment on above: Result Comment: Canc elled via OM: Order cancelled - Patient discharged Performed By: #### L 100.0100, L500.2500 ####[facility] [address] [place], [address] EST GFR - AA Normal >60 [facility] Comment on above: Result Comment: Canc elled via OM: Order cancelled - Patient discharged Performed By: #### L 100.0100, L500.2500 ####[facility] [address] [place], [address] GAP Normal 5-15 [facility] Comment on above: Result Comment: Canc elled via OM: Order cancelled - Patient discharged Performed By: #### L 100.0100, L500.2500 ####[facility] [address] [place], [address] GLU Normal 74-106 [facility] Comment on above: Result Comment: Canc elled via OM: Order cancelled - Patient discharged Performed By: #### L 100.0100, L500.2500 ####[facility] [address] [place], [address] Potassium Normal 3.5-5.1 [facility] Comment on above: Result Comment: Canc elled via OM: Order cancelled - Patient discharged Performed By: #### L 100.0100, L500.2500 ####[facility] [address] [place], [address] Basic Metabolic Profile (BMP) Normal 136-145 [facility] Comment on above: Result Comment: Canc elled via OM: Order cancelled - Patient discharged Performed By: #### L 100.0100, L500.2500 ####[facility] [address] [place], [address] CBC W/Diff, Automatedon 10-2 Absolute Neut Normal 2.0-7.7 [facility] Comment on above: Result Comment: Canc elled via OM: Order cancelled - Patient discharged Performed By: #### L 100.0100, L500.2500 ####[facility] [address] [place], [address] HCT Normal 40-54 [facility] Comment on above: Result Comment: Canc elled via OM: Order cancelled - Patient discharged Performed By: #### L 100.0100, L500.2500 ####[facility] [address] [place], [address] HGB Normal 13.0-16.5 [facility] Comment on above: Result Comment: Canc elled via OM: Order cancelled - Patient discharged Performed By: #### L 100.0100, L500.2500 ####[facility] [address] [place], [address] MCH Normal 27.0-32.0 [facility] Comment on above: Result Comment: Canc elled via OM: Order cancelled - Patient discharged Performed By: #### L 100.0100, L500.2500 ####[facility] [address] [place], [address] MCHC Normal 32-36 [facility] Comment on above: Result Comment: Canc elled via OM: Order cancelled - Patient discharged Performed By: #### L 100.0100, L500.2500 ####[facility] [address] [place], [address] MCV Normal 80-94 [facility] Comment on above: Result Comment: Canc elled via OM: Order cancelled - Patient discharged Performed By: #### L 100.0100, L500.2500 ####[facility] [address] [place], [address] NEUT% Normal 47-70 [facility] Comment on above: Result Comment: Canc elled via OM: Order cancelled - Patient discharged Performed By: #### L 100.0100, L500.2500 ####[facility] [address] [place], [address] PLT Normal 150-450 [facility] Comment on above: Result Comment: Canc elled via OM: Order cancelled - Patient discharged Performed By: #### L 100.0100, L500.2500 ####[facility] [address] [place], [address] RBC Normal 4.6-6.2 [facility] Comment on above: Result Comment: Canc elled via OM: Order cancelled - Patient discharged Performed By: #### L 100.0100, L500.2500 ####[facility] [address] [place], [address] RDW CV Normal 11.6-14.6 [facility] Comment on above: Result Comment: Canc elled via OM: Order cancelled - Patient discharged Performed By: #### L 100.0100, L500.2500 ####[facility] [address] [place], [address] RDW SD Normal 35.1-43.9 [facility] Comment on above: Result Comment: Canc elled via OM: Order cancelled - Patient discharged Performed By: #### L 100.0100, L500.2500 ####[facility] [address] [place], [address] WBC Normal 4.4-11.0 [facility] Comment on above: Result Comment: Canc elled via OM: Order cancelled - Patient discharged Performed By: #### L 100.0100, L500.2500 ####[facility] [address] [place], [address] Basic Metabolic Profile (BMP )on 04-12-2024 BUN/CRE 21.1 RATIO High 10-20 [facility] Comment on above: Order Comment: 306-2 Performed By: #### L 100.0500, L500.2500 ####[facility] [address] [place], [address] CA,Total 10.1 mg/dL Normal 8.5-10.1 [facility] Comment on above: Order Comment: 306-2 Performed By: #### L 100.0500, L500.2500 ####[facility] [address] [place], [address] Chloride [Moles/Vol] 106 mmol/L Normal 98-107 [facility] Comment on above: Order Comment: 306-2 Performed By: #### L 100.0500, L500.2500 ####[facility] [address] [place], [address] CO2 [Moles/Vol] 27.0 mmol/L Normal 21.0-32.0 [facility] Comment on above: Order Comment: 306-2 Performed By: #### L 100.0500, L500.2500 ####[facility] [address] [place], [address] Creatinine [Mass/Vol] 1.28 mg/dL Normal 0.70-1.[address] [facility] Comment on above: Order Comment: 306-2 Result Comment: The validity of the calculated GFR GFRAA in patients over70 years has not been determined. Clinical correlation isessential. Performed By: #### L 100.0500, L500.2500 ####[facility] [address] [place], [address] EST GFR - AA 71 mL/min Normal >60 [facility] Comment on above: Order Comment: 306-2 Result Comment: Afri can [place] GFR Calc Performed By: #### L 100.0500, L500.2500 ####[facility] [address] [place], [address] GAP 7 Normal 5-15 [facility] Comment on above: Order Comment: 306-2 Performed By: #### L 100.0500, L500.2500 ####[facility] [address] [place], [address] GFR/1.73 sq M.predicted among non-blacks MDRD (S/P/Bld) [Vol rate/Area] 58 mL/min/{1.73_m2} Low >60 [facility] Comment on above: Order Comment: 306-2 Result Comment: Non- GFR Calc Performed By: #### L 100.0500, L500.2500 ####[facility] [address] [place], [address] Glucose [Mass/Vol] 94 mg/dL Normal 74-106 [facility] Comment on above: Order Comment: 306-2 Performed By: #### L 100.0500, L500.2500 ####[facility] [address] [place], [address] Potassium [Moles/Vol] 3.6 mmol/L Normal 3.5-5.[address] [facility] Comment on above: Order Comment: 306-2 Performed By: #### L 100.0500, L500.2500 ####[facility] [address] [place], [address] Sodium [Moles/Vol] 140 mmol/L Normal 136-145 [facility] Comment on above: Order Comment: 306-2 Performed By: #### L 100.0500, L500.2500 ####[facility] [address] [place], [address] Urea nitrogen [Mass/Vol] 27 mg/dL High 7-18 [facility] Comment on above: Order Comment: 306-2 Performed By: #### L 100.0500, L500.2500 ####[facility] [address] [place], [address] BUN Normal 7-18 [facility] Comment on above: Result Comment: Canc elled via OM: Order cancelled - Patient discharged Performed By: #### L 500.2500, L100.0100 ####[facility] [address] [place], [address] BUN/CRE Normal 10-20 [facility] Comment on above: Result Comment: Canc elled via OM: Order cancelled - Patient discharged Performed By: #### L 500.2500, L100.0100 ####[facility] [address] [place], [address] CA,Total Normal 8.5-10.1 [facility] Comment on above: Result Comment: Canc elled via OM: Order cancelled - Patient discharged Performed By: #### L 500.2500, L100.0100 ####[facility] [address] [place], [address] CL Normal 98-107 [facility] Comment on above: Result Comment: Canc elled via OM: Order cancelled - Patient discharged Performed By: #### L 500.2500, L100.0100 ####[facility] [address] [place], [address] CO2 Normal 21.0-32.0 [facility] Comment on above: Result Comment: Canc elled via OM: Order cancelled - Patient discharged Performed By: #### L 500.2500, L100.0100 ####[facility] [address] [place], [address] CREAT,SERUM Normal 0.70-1.30 [facility] Comment on above: Result Comment: Canc elled via OM: Order cancelled - Patient discharged Performed By: #### L 500.2500, L100.0100 ####[facility] [address] [place], [address] EST GFR Normal >60 [facility] Comment on above: Result Comment: Canc elled via OM: Order cancelled - Patient discharged Performed By: #### L 500.2500, L100.0100 ####[facility] [address] [place], [address] EST GFR - AA Normal >60 [facility] Comment on above: Result Comment: Canc elled via OM: Order cancelled - Patient discharged Performed By: #### L 500.2500, L100.0100 ####[facility] [address] [place], [address] GAP Normal 5-15 [facility] Comment on above: Result Comment: Canc elled via OM: Order cancelled - Patient discharged Performed By: #### L 500.2500, L100.0100 ####[facility] [address] [place], [address] GLU Normal 74-106 [facility] Comment on above: Result Comment: Canc elled via OM: Order cancelled - Patient discharged Performed By: #### L 500.2500, L100.0100 ####[facility] [address] [place], [address] Potassium Normal 3.5-5.1 [facility] Comment on above: Result Comment: Canc elled via OM: Order cancelled - Patient discharged Performed By: #### L 500.2500, L100.0100 ####[facility] [address] [place], [address] Basic Metabolic Profile (BMP) Normal 136-145 [facility] Comment on above: Result Comment: Canc elled via OM: Order cancelled - Patient discharged Performed By: #### L 500.2500, L100.0100 ####[facility] [address] [place], [address] CBC W/Diff, Automatedon 10-2 -2023 Absolute Neut Normal 2.0-7.7 [facility] Comment on above: Result Comment: Canc elled via OM: Order cancelled - Patient discharged Performed By: #### L 500.2500, L100.0100 ####[facility] [address] [place], [address] HCT Normal 40-54 [facility] Comment on above: Result Comment: Canc elled via OM: Order cancelled - Patient discharged Performed By: #### L 500.2500, L100.0100 ####[facility] [address] [place], [address] HGB Normal 13.0-16.5 [facility] Comment on above: Result Comment: Canc elled via OM: Order cancelled - Patient discharged Performed By: #### L 500.2500, L100.0100 ####[facility] [address] [place], [address] MCH Normal 27.0-32.0 [facility] Comment on above: Result Comment: Canc elled via OM: Order cancelled - Patient discharged Performed By: #### L 500.2500, L100.0100 ####[facility] [address] [place], [address] MCHC Normal 32-36 [facility] Comment on above: Result Comment: Canc elled via OM: Order cancelled - Patient discharged Performed By: #### L 500.2500, L100.0100 ####[facility] [address] [place], [address] MCV Normal 80-94 [facility] Comment on above: Result Comment: Canc elled via OM: Order cancelled - Patient discharged Performed By: #### L 500.2500, L100.0100 ####[facility] [address] [place], [address] NEUT% Normal 47-70 [facility] Comment on above: Result Comment: Canc elled via OM: Order cancelled - Patient discharged Performed By: #### L 500.2500, L100.0100 ####[facility] [address] [place], [address] PLT Normal 150-450 [facility] Comment on above: Result Comment: Canc elled via OM: Order cancelled - Patient discharged Performed By: #### L 500.2500, L100.0100 ####[facility] [address] [place], [address] RBC Normal 4.6-6.2 [facility] Comment on above: Result Comment: Canc elled via OM: Order cancelled - Patient discharged Performed By: #### L 500.2500, L100.0100 ####[facility] [address] [place], [address] RDW CV Normal 11.6-14.6 [facility] Comment on above: Result Comment: Canc elled via OM: Order cancelled - Patient discharged Performed By: #### L 500.2500, L100.0100 ####[facility] [address] [place], [address] RDW SD Normal 35.1-43.9 [facility] Comment on above: Result Comment: Canc elled via OM: Order cancelled - Patient discharged Performed By: #### L 500.2500, L100.0100 ####[facility] [address] [place], [address] WBC Normal 4.4-11.0 [facility] Comment on above: Result Comment: Canc elled via OM: Order cancelled - Patient discharged Performed By: #### L 500.2500, L100.0100 ####[facility] [address] [place], [address] CBC-Complete Blood Cnt No Iris panchalon 04-12-2024 Erythrocyte distribution width (RBC) [Ratio] 13.3 % Normal 11.6-14.6 [facility] Comment on above: Order Comment: 306-2 Performed By: #### L 100.0500, L500.2500 ####[facility] [address] [place], [address] Hematocrit (Bld) [Volume fraction] 49.2 % Normal 40-54 [facility] Comment on above: Order Comment: 306-2 Performed By: #### L 100.0500, L500.2500 ####[facility] [address] [place], [address] Hemoglobin (Bld) [Mass/Vol] 16.4 g/dL Normal 13.0-16.5 [facility] Comment on above: Order Comment: 306-2 Performed By: #### L 100.0500, L500.2500 ####[facility] [address] [place], [address] MCH (RBC) [Entitic mass] 33.4 pg High 27.0-32.0 [facility] Comment on above: Order Comment: 306-2 Performed By: #### L 100.0500, L500.2500 ####[facility] [address] [place], [address] MCHC (RBC) [Mass/Vol] 33.3 g/dL Normal 32-[address] [facility] Comment on above: Order Comment: 306-2 Performed By: #### L 100.0500, L500.2500 ####[facility] [address] [place], [address] MCV (RBC) [Entitic vol] 100.2 fL High 80-94 [facility] Comment on above: Order Comment: 306-2 Performed By: #### L 100.0500, L500.2500 ####[facility] [address] [place], [address] Platelet mean volume (Bld) [Entitic vol] 10.1 fL Normal 6.2-12.0 [facility] Comment on above: Order Comment: 306-2 Performed By: #### L 100.0500, L500.2500 ####[facility] [address] [place], [address] Platelets (Bld) [#/Vol] 305 10*3/uL Normal 150-450 [facility] Comment on above: Order Comment: 306-2 Performed By: #### L 100.0500, L500.2500 ####[facility] [address] [place], [address] RBC (Bld) [#/Vol] 4.91 10*6/uL Normal 4.6-6.2 [facility] Comment on above: Order Comment: 306-2 Performed By: #### L 100.0500, L500.2500 ####[facility] [address] [place], [address] RDW SD 49.8 fl High 35.1-43.9 [facility] Comment on above: Order Comment: 306-2 Performed By: #### L 100.0500, L500.2500 ####[facility] [address] [place], [address] WBC (Bld) [#/Vol] 7.4 10*3/uL Normal 4.4-11.0 [facility] Comment on above: Order Comment: 306-2 Performed By: #### L 100.0500, L500.2500 ####[facility] [address] [place], [address] Basic Metabolic Profile (BMP )on 04-11-2024 BUN Normal 7-18 [facility] Comment on above: Result Comment: Canc elled via OM: Order cancelled - Patient discharged Performed By: #### L 500.2500, L100.0100 ####[facility] [address] [place], [address] BUN/CRE Normal 10-20 [facility] Comment on above: Result Comment: Canc elled via OM: Order cancelled - Patient discharged Performed By: #### L 500.2500, L100.0100 ####[facility] [address] [place], [address] CA,Total Normal 8.5-10.1 [facility] Comment on above: Result Comment: Canc elled via OM: Order cancelled - Patient discharged Performed By: #### L 500.2500, L100.0100 ####[facility] [address] [place], [address] CL Normal 98-107 [facility] Comment on above: Result Comment: Canc elled via OM: Order cancelled - Patient discharged Performed By: #### L 500.2500, L100.0100 ####[facility] [address] [place], [address] CO2 Normal 21.0-32.0 [facility] Comment on above: Result Comment: Canc elled via OM: Order cancelled - Patient discharged Performed By: #### L 500.2500, L100.0100 ####[facility] [address] [place], [address] CREAT,SERUM Normal 0.70-1.30 [facility] Comment on above: Result Comment: Canc elled via OM: Order cancelled - Patient discharged Performed By: #### L 500.2500, L100.0100 ####[facility] [address] [place], [address] EST GFR Normal >60 [facility] Comment on above: Result Comment: Canc elled via OM: Order cancelled - Patient discharged Performed By: #### L 500.2500, L100.0100 ####[facility] [address] [place], [address] EST GFR - AA Normal >60 [facility] Comment on above: Result Comment: Canc elled via OM: Order cancelled - Patient discharged Performed By: #### L 500.2500, L100.0100 ####[facility] [address] [place], [address] GAP Normal 5-15 [facility] Comment on above: Result Comment: Canc elled via OM: Order cancelled - Patient discharged Performed By: #### L 500.2500, L100.0100 ####[facility] [address] [place], [address] GLU Normal 74-106 [facility] Comment on above: Result Comment: Canc elled via OM: Order cancelled - Patient discharged Performed By: #### L 500.2500, L100.0100 ####[facility] [address] [place], [address] Potassium Normal 3.5-5.1 [facility] Comment on above: Result Comment: Canc elled via OM: Order cancelled - Patient discharged Performed By: #### L 500.2500, L100.0100 ####[facility] [address] [place], [address] Basic Metabolic Profile (BMP) Normal 136-145 [facility] Comment on above: Result Comment: Canc elled via OM: Order cancelled - Patient discharged Performed By: #### L 500.2500, L100.0100 ####[facility] [address] [place], [address] CBC W/Diff, Automatedon 10-2 Absolute Neut Normal 2.0-7.7 [facility] Comment on above: Result Comment: Canc elled via OM: Order cancelled - Patient discharged Performed By: #### L 500.2500, L100.0100 ####[facility] [address] [place], [address] HCT Normal 40-54 [facility] Comment on above: Result Comment: Canc elled via OM: Order cancelled - Patient discharged Performed By: #### L 500.2500, L100.0100 ####[facility] [address] [place], [address] HGB Normal 13.0-16.5 [facility] Comment on above: Result Comment: Canc elled via OM: Order cancelled - Patient discharged Performed By: #### L 500.2500, L100.0100 ####[facility] [address] [place], [address] MCH Normal 27.0-32.0 [facility] Comment on above: Result Comment: Canc elled via OM: Order cancelled - Patient discharged Performed By: #### L 500.2500, L100.0100 ####[facility] [address] [place], [address] MCHC Normal 32-36 [facility] Comment on above: Result Comment: Canc elled via OM: Order cancelled - Patient discharged Performed By: #### L 500.2500, L100.0100 ####[facility] [address] [place], [address] MCV Normal 80-94 [facility] Comment on above: Result Comment: Canc elled via OM: Order cancelled - Patient discharged Performed By: #### L 500.2500, L100.0100 ####[facility] [address] [place], [address] NEUT% Normal 47-70 [facility] Comment on above: Result Comment: Canc elled via OM: Order cancelled - Patient discharged Performed By: #### L 500.2500, L100.0100 ####[facility] [address] [place], [address] PLT Normal 150-450 [facility] Comment on above: Result Comment: Canc elled via OM: Order cancelled - Patient discharged Performed By: #### L 500.2500, L100.0100 ####[facility] [address] [place], [address] RBC Normal 4.6-6.2 [facility] Comment on above: Result Comment: Canc elled via OM: Order cancelled - Patient discharged Performed By: #### L 500.2500, L100.0100 ####[facility] [address] [place], [address] RDW CV Normal 11.6-14.6 [facility] Comment on above: Result Comment: Canc elled via OM: Order cancelled - Patient discharged Performed By: #### L 500.2500, L100.0100 ####[facility] [address] [place], [address] RDW SD Normal 35.1-43.9 [facility] Comment on above: Result Comment: Canc elled via OM: Order cancelled - Patient discharged Performed By: #### L 500.2500, L100.0100 ####[facility] [address] [place], [address] WBC Normal 4.4-11.0 [facility] Comment on above: Result Comment: Canc elled via OM: Order cancelled - Patient discharged Performed By: #### L 500.2500, L100.0100 ####[facility] [address] [place], [address] Basic Metabolic Profile (BMP )on 04-10-2024 BUN/CRE 16.1 RATIO Normal 10-20 [facility] Comment on above: Performed By: #### L 100.0100, L500.2500 ####[facility] [address] [place], [address] CA,Total 9.4 mg/dL Normal 8.5-10.1 [facility] Comment on above: Performed By: #### L 100.0100, L500.2500 ####[facility] [address] [place], [address] Chloride [Moles/Vol] 106 mmol/L Normal 98-107 [facility] Comment on above: Performed By: #### L 100.0100, L500.2500 ####[facility] [address] [place], [address] CO2 [Moles/Vol] 25.0 mmol/L Normal 21.0-32.0 [facility] Comment on above: Performed By: #### L 100.0100, L500.2500 ####[facility] [address] [place], [address] Creatinine [Mass/Vol] 1.74 mg/dL High 0.70-1.[address] [facility] Comment on above: Result Comment: The validity of the calculated GFR GFRAA in patients over70 years has not been determined. Clinical correlation isessential. Performed By: #### L 100.0100, L500.2500 ####[facility] [address] [place], [address] ECRCL 33.61 ml/min Normal [facility] Comment on above: Performed By: #### L 100.0100, L500.2500 ####[facility] [address] [place], [address] EST GFR - AA 50 mL/min Low >60 [facility] Comment on above: Result Comment: Afri can [place] GFR Calc Performed By: #### L 100.0100, L500.2500 ####[facility] [address] [place], [address] GAP 5 Normal 5-15 [facility] Comment on above: Performed By: #### L 100.0100, L500.2500 ####[facility] [address] [place], [address] GFR/1.73 sq M.predicted among non-blacks MDRD (S/P/Bld) [Vol rate/Area] 41 mL/min/{1.73_m2} Low >60 [facility] Comment on above: Result Comment: Non- GFR Calc Performed By: #### L 100.0100, L500.2500 ####[facility] [address] [place], [address] Glucose [Mass/Vol] 90 mg/dL Normal 74-106 [facility] Comment on above: Performed By: #### L 100.0100, L500.2500 ####[facility] [address] [place], [address] Potassium [Moles/Vol] 4.1 mmol/L Normal 3.5-5.[address] [facility] Comment on above: Performed By: #### L 100.0100, L500.2500 ####[facility] [address] [place], [address] Sodium [Moles/Vol] 136 mmol/L Normal 136-145 [facility] Comment on above: Performed By: #### L 100.0100, L500.2500 ####[facility] [address] [place], [address] Urea nitrogen [Mass/Vol] 28 mg/dL High 7-18 [facility] Comment on above: Performed By: #### L 100.0100, L500.2500 ####[facility] [address] [place], [address] CBC W/Diff, Automatedon 10-2 -2023 Absolute Lymph 1.36 X10 3/uL Normal 0.83-4.51 [facility] Comment on above: Performed By: #### L 100.0100, L500.2500 ####[facility] [address] [place], [address] Absolute Neut 5.5 X10 3/uL Normal 2.0-7.7 [facility] Comment on above: Performed By: #### L 100.0100, L500.2500 ####[facility] [address] [place], [address] Basophils/100 WBC (Bld) 0.7 % Normal 0-1 [facility] Comment on above: Performed By: #### L 100.0100, L500.2500 ####[facility] [address] [place], [address] Eosinophils/100 WBC (Bld) 0.3 % Normal 0-5 [facility] Comment on above: Performed By: #### L 100.0100, L500.2500 ####[facility] [address] [place], [address] Erythrocyte distribution width (RBC) [Ratio] 13.4 % Normal 11.6-14.6 [facility] Comment on above: Performed By: #### L 100.0100, L500.2500 ####[facility] [address] [place], [address] Hematocrit (Bld) [Volume fraction] 45.6 % Normal 40-54 [facility] Comment on above: Performed By: #### L 100.0100, L500.2500 ####[facility] [address] [place], [address] Hemoglobin (Bld) [Mass/Vol] 15.4 g/dL Normal 13.0-16.5 [facility] Comment on above: Performed By: #### L 100.0100, L500.2500 ####[facility] [address] [place], [address] IG% 0.800 Normal 0.0-0.9 [facility] Comment on above: Result Comment: IG% - Immature Granulocytes (promyelocytes, myelocytes andmetamyelocytes) > 1% indicates that a LEFT SHIFT is Present. Performed By: #### L 100.0100, L500.2500 ####[facility] [address] [place], [address] Lymphocytes/100 WBC (Bld) 18.0 % Low 19-41 [facility] Comment on above: Performed By: #### L 100.0100, L500.2500 ####[facility] [address] [place], [address] MCH (RBC) [Entitic mass] 33.6 pg High 27.0-32.0 [facility] Comment on above: Performed By: #### L 100.0100, L500.2500 ####[facility] [address] [place], [address] MCHC (RBC) [Mass/Vol] 33.8 g/dL Normal 32-[address] [facility] Comment on above: Performed By: #### L 100.0100, L500.2500 ####[facility] [address] [place], [address] MCV (RBC) [Entitic vol] 99.3 fL High 80-94 [facility] Comment on above: Performed By: #### L 100.0100, L500.2500 ####[facility] [address] [place], [address] Monocytes/100 WBC (Bld) 7.0 % Normal 0-10 [facility] Comment on above: Performed By: #### L 100.0100, L500.2500 ####[facility] [address] [place], [address] Neutrophils/100 WBC (Bld) 73.2 % High 47-70 [facility] Comment on above: Performed By: #### L 100.0100, L500.2500 ####[facility] [address] [place], [address] Nucleated RBC (Bld) [#/Vol] 0 10*3/uL Normal 0-5 [facility] Comment on above: Performed By: #### L 100.0100, L500.2500 ####[facility] [address] [place], [address] Platelet mean volume (Bld) [Entitic vol] 10.1 fL Normal 6.2-12.0 [facility] Comment on above: Performed By: #### L 100.0100, L500.2500 ####[facility] [address] [place], [address] Platelets (Bld) [#/Vol] 296 10*3/uL Normal 150-450 [facility] Comment on above: Performed By: #### L 100.0100, L500.2500 ####[facility] [address] [place], [address] RBC (Bld) [#/Vol] 4.59 10*6/uL Low 4.6-6.2 [facility] Comment on above: Performed By: #### L 100.0100, L500.2500 ####[facility] [address] [place], [address] RDW SD 48.8 fl High 35.1-43.9 [facility] Comment on above: Performed By: #### L 100.0100, L500.2500 ####[facility] [address] [place], [address] WBC (Bld) [#/Vol] 7.6 10*3/uL Normal 4.4-11.0 [facility] Comment on above: Performed By: #### L 100.0100, L500.2500 ####[facility] [address] [place], [address] Basic Metabolic Profile (BMP )on 04-09-2024 BUN/CRE 15.3 RATIO Normal 10-20 [facility] Comment on above: Performed By: #### L 500.2500, L100.0100 ####[facility] [address] [place], [address] CA,Total 9.8 mg/dL Normal 8.5-10.1 [facility] Comment on above: Performed By: #### L 500.2500, L100.0100 ####[facility] [address] [place], [address] Chloride [Moles/Vol] 107 mmol/L Normal 98-107 [facility] Comment on above: Performed By: #### L 500.2500, L100.0100 ####[facility] [address] [place], [address] CO2 [Moles/Vol] 26.0 mmol/L Normal 21.0-32.0 [facility] Comment on above: Performed By: #### L 500.2500, L100.0100 ####[facility] [address] [place], [address] Creatinine [Mass/Vol] 1.44 mg/dL High 0.70-1.[address] [facility] Comment on above: Result Comment: The validity of the calculated GFR GFRAA in patients over70 years has not been determined. Clinical correlation isessential. Performed By: #### L 500.2500, L100.0100 ####[facility] [address] [place], [address] ECRCL 40.61 ml/min Normal [facility] Comment on above: Performed By: #### L 500.2500, L100.0100 ####[facility] [address] [place], [address] EST GFR - AA 62 mL/min Normal >60 [facility] Comment on above: Result Comment: Afri can [place] GFR Calc Performed By: #### L 500.2500, L100.0100 ####[facility] [address] [place], [address] GAP 4 Low 5-15 [facility] Comment on above: Performed By: #### L 500.2500, L100.0100 ####[facility] [address] [place], [address] GFR/1.73 sq M.predicted among non-blacks MDRD (S/P/Bld) [Vol rate/Area] 51 mL/min/{1.73_m2} Low >60 [facility] Comment on above: Result Comment: Non- GFR Calc Performed By: #### L 500.2500, L100.0100 ####[facility] [address] [place], [address] Glucose [Mass/Vol] 97 mg/dL Normal 74-106 [facility] Comment on above: Performed By: #### L 500.2500, L100.0100 ####[facility] [address] [place], [address] Potassium [Moles/Vol] 4.0 mmol/L Normal 3.5-5.[address] [facility] Comment on above: Result Comment: Mode rate Hemolysis, Result may be falsely increased. Performed By: #### L 500.2500, L100.0100 ####[facility] [address] [place], [address] Sodium [Moles/Vol] 137 mmol/L Normal 136-145 [facility] Comment on above: Performed By: #### L 500.2500, L100.0100 ####[facility] [address] [place], [address] Urea nitrogen [Mass/Vol] 22 mg/dL High 7-18 [facility] Comment on above: Performed By: #### L 500.2500, L100.0100 ####[facility] [address] [place], [address] CBC W/Diff, Automatedon 10-2 Absolute Lymph 1.04 X10 3/uL Normal 0.83-4.51 [facility] Comment on above: Performed By: #### L 500.2500, L100.0100 ####[facility] [address] [place], [address] Absolute Neut 5.9 X10 3/uL Normal 2.0-7.7 [facility] Comment on above: Performed By: #### L 500.2500, L100.0100 ####[facility] [address] [place], [address] Basophils/100 WBC (Bld) 0.7 % Normal 0-1 [facility] Comment on above: Performed By: #### L 500.2500, L100.0100 ####[facility] [address] [place], [address] Eosinophils/100 WBC (Bld) 0.9 % Normal 0-5 [facility] Comment on above: Performed By: #### L 500.2500, L100.0100 ####[facility] [address] [place], [address] Erythrocyte distribution width (RBC) [Ratio] 13.2 % Normal 11.6-14.6 [facility] Comment on above: Performed By: #### L 500.2500, L100.0100 ####[facility] [address] [place], [address] Hematocrit (Bld) [Volume fraction] 45.7 % Normal 40-54 [facility] Comment on above: Performed By: #### L 500.2500, L100.0100 ####[facility] [address] [place], [address] Hemoglobin (Bld) [Mass/Vol] 15.0 g/dL Normal 13.0-16.5 [facility] Comment on above: Performed By: #### L 500.2500, L100.0100 ####[facility] [address] [place], [address] IG% 0.500 Normal 0.0-0.9 [facility] Comment on above: Result Comment: IG% - Immature Granulocytes (promyelocytes, myelocytes andmetamyelocytes) > 1% indicates that a LEFT SHIFT is Present. Performed By: #### L 500.2500, L100.0100 ####[facility] [address] [place], [address] Lymphocytes/100 WBC (Bld) 13.6 % Low 19-41 [facility] Comment on above: Performed By: #### L 500.2500, L100.0100 ####[facility] [address] [place], [address] MCH (RBC) [Entitic mass] 32.5 pg High 27.0-32.0 [facility] Comment on above: Performed By: #### L 500.2500, L100.0100 ####[facility] [address] [place], [address] MCHC (RBC) [Mass/Vol] 32.8 g/dL Normal 32-[address] [facility] Comment on above: Performed By: #### L 500.2500, L100.0100 ####[facility] [address] [place], [address] MCV (RBC) [Entitic vol] 98.9 fL High 80-94 [facility] Comment on above: Performed By: #### L 500.2500, L100.0100 ####[facility] [address] [place], [address] Monocytes/100 WBC (Bld) 7.2 % Normal 0-10 [facility] Comment on above: Performed By: #### L 500.2500, L100.0100 ####[facility] [address] [place], [address] Neutrophils/100 WBC (Bld) 77.1 % High 47-70 [facility] Comment on above: Performed By: #### L 500.2500, L100.0100 ####[facility] [address] [place], [address] Nucleated RBC (Bld) [#/Vol] 0 10*3/uL Normal 0-5 [facility] Comment on above: Performed By: #### L 500.2500, L100.0100 ####[facility] [address] [place], [address] Platelet mean volume (Bld) [Entitic vol] 10.0 fL Normal 6.2-12.0 [facility] Comment on above: Performed By: #### L 500.2500, L100.0100 ####[facility] [address] [place], [address] Platelets (Bld) [#/Vol] 309 10*3/uL Normal 150-450 [facility] Comment on above: Performed By: #### L 500.2500, L100.0100 ####[facility] [address] [place], [address] RBC (Bld) [#/Vol] 4.62 10*6/uL Normal 4.6-6.2 [facility] Comment on above: Performed By: #### L 500.2500, L100.0100 ####[facility] [address] [place], [address] RDW SD 48.0 fl High 35.1-43.9 [facility] Comment on above: Performed By: #### L 500.2500, L100.0100 ####[facility] [address] [place], [address] WBC (Bld) [#/Vol] 7.7 10*3/uL Normal 4.4-11.0 [facility] Comment on above: Performed By: #### L 500.2500, L100.0100 ####[facility] [address] [place], [address] Basic Metabolic Profile (BMP )on 04-08-2024 BUN/CRE 10.4 RATIO Normal 10-20 [facility] Comment on above: Performed By: #### L 500.2500, L100.0100 ####[facility] [address] [place], [address] CA,Total 9.6 mg/dL Normal 8.5-10.1 [facility] Comment on above: Performed By: #### L 500.2500, L100.0100 ####[facility] [address] [place], [address] Chloride [Moles/Vol] 108 mmol/L High 98-107 [facility] Comment on above: Performed By: #### L 500.2500, L100.0100 ####[facility] [address] [place], [address] CO2 [Moles/Vol] 24.0 mmol/L Normal 21.0-32.0 [facility] Comment on above: Performed By: #### L 500.2500, L100.0100 ####[facility] [address] [place], [address] Creatinine [Mass/Vol] 1.15 mg/dL Normal 0.70-1.[address] [facility] Comment on above: Result Comment: The validity of the calculated GFR GFRAA in patients over70 years has not been determined. Clinical correlation isessential. Performed By: #### L 500.2500, L100.0100 ####[facility] [address] [place], [address] ECRCL 50.86 ml/min Normal [facility] Comment on above: Performed By: #### L 500.2500, L100.0100 ####[facility] [address] [place], [address] EST GFR - AA 80 mL/min Normal >60 [facility] Comment on above: Result Comment: Afri can [place] GFR Calc Performed By: #### L 500.2500, L100.0100 ####[facility] [address] [place], [address] GAP 9 Normal 5-15 [facility] Comment on above: Performed By: #### L 500.2500, L100.0100 ####[facility] [address] [place], [address] GFR/1.73 sq M.predicted among non-blacks MDRD (S/P/Bld) [Vol rate/Area] 66 mL/min/{1.73_m2} Normal >60 [facility] Comment on above: Result Comment: Non- GFR Calc Performed By: #### L 500.2500, L100.0100 ####[facility] [address] [place], [address] Glucose [Mass/Vol] 92 mg/dL Normal 74-106 [facility] Comment on above: Performed By: #### L 500.2500, L100.0100 ####[facility] [address] [place], [address] Potassium [Moles/Vol] 3.9 mmol/L Normal 3.5-5.[address] [facility] Comment on above: Result Comment: Slig ht Hemolysis, Result may be falsely increased. Performed By: #### L 500.2500, L100.0100 ####[facility] [address] [place], [address] Sodium [Moles/Vol] 142 mmol/L Normal 136-145 [facility] Comment on above: Performed By: #### L 500.2500, L100.0100 ####[facility] [address] [place], [address] Urea nitrogen [Mass/Vol] 12 mg/dL Normal 7-18 [facility] Comment on above: Performed By: #### L 500.2500, L100.0100 ####[facility] [address] [place], [address] CBC W/Diff, Automatedon 10-2 Absolute Lymph 1.20 X10 3/uL Normal 0.83-4.51 [facility] Comment on above: Performed By: #### L 500.2500, L100.0100 ####[facility] [address] [place], [address] Absolute Neut 4.1 X10 3/uL Normal 2.0-7.7 [facility] Comment on above: Performed By: #### L 500.2500, L100.0100 ####[facility] [address] [place], [address] Basophils/100 WBC (Bld) 1.3 % High 0-1 [facility] Comment on above: Performed By: #### L 500.2500, L100.0100 ####[facility] [address] [place], [address] Eosinophils/100 WBC (Bld) 2.0 % Normal 0-5 [facility] Comment on above: Performed By: #### L 500.2500, L100.0100 ####[facility] [address] [place], [address] Erythrocyte distribution width (RBC) [Ratio] 13.0 % Normal 11.6-14.6 [facility] Comment on above: Performed By: #### L 500.2500, L100.0100 ####[facility] [address] [place], [address] Hematocrit (Bld) [Volume fraction] 44.0 % Normal 40-54 [facility] Comment on above: Performed By: #### L 500.2500, L100.0100 ####[facility] [address] [place], [address] Hemoglobin (Bld) [Mass/Vol] 14.6 g/dL Normal 13.0-16.5 [facility] Comment on above: Performed By: #### L 500.2500, L100.0100 ####[facility] [address] [place], [address] IG% 0.300 Normal 0.0-0.9 [facility] Comment on above: Result Comment: IG% - Immature Granulocytes (promyelocytes, myelocytes andmetamyelocytes) > 1% indicates that a LEFT SHIFT is Present. Performed By: #### L 500.2500, L100.0100 ####[facility] [address] [place], [address] Lymphocytes/100 WBC (Bld) 20.0 % Normal 19-41 [facility] Comment on above: Performed By: #### L 500.2500, L100.0100 ####[facility] [address] [place], [address] MCH (RBC) [Entitic mass] 32.7 pg High 27.0-32.0 [facility] Comment on above: Performed By: #### L 500.2500, L100.0100 ####[facility] [address] [place], [address] MCHC (RBC) [Mass/Vol] 33.2 g/dL Normal 32-[address] [facility] Comment on above: Performed By: #### L 500.2500, L100.0100 ####[facility] [address] [place], [address] MCV (RBC) [Entitic vol] 98.4 fL High 80-94 [facility] Comment on above: Performed By: #### L 500.2500, L100.0100 ####[facility] [address] [place], [address] Monocytes/100 WBC (Bld) 8.7 % Normal 0-10 [facility] Comment on above: Performed By: #### L 500.2500, L100.0100 ####[facility] [address] [place], [address] Neutrophils/100 WBC (Bld) 67.7 % Normal 47-70 [facility] Comment on above: Performed By: #### L 500.2500, L100.0100 ####[facility] [address] [place], [address] Nucleated RBC (Bld) [#/Vol] 0 10*3/uL Normal 0-5 [facility] Comment on above: Performed By: #### L 500.2500, L100.0100 ####[facility] [address] [place], [address] Platelet mean volume (Bld) [Entitic vol] 9.9 fL Normal 6.2-12.0 [facility] Comment on above: Performed By: #### L 500.2500, L100.0100 ####[facility] [address] [place], [address] Platelets (Bld) [#/Vol] 270 10*3/uL Normal 150-450 [facility] Comment on above: Performed By: #### L 500.2500, L100.0100 ####[facility] [address] [place], [address] RBC (Bld) [#/Vol] 4.47 10*6/uL Low 4.6-6.2 [facility] Comment on above: Performed By: #### L 500.2500, L100.0100 ####[facility] [address] [place], [address] RDW SD 47.0 fl High 35.1-43.9 [facility] Comment on above: Performed By: #### L 500.2500, L100.0100 ####[facility] [address] [place], [address] WBC (Bld) [#/Vol] 6.0 10*3/uL Normal 4.4-11.0 [facility] Comment on above: Performed By: #### L 500.2500, L100.0100 ####[facility] [address] [place], [address] Vitamin D,25 Hydroxyon 04-08 Vitamin D 25-OH 35.4 ng/mL Normal [facility] Comment on above: Result Comment: Teri min D 25(OH) Status Range Deficiency <20 ng/mL (50nmol/L) Insufficiency 20 - 30 ng/mL (50 - 75 nmol/L) Sufficiency 30 - 100 ng/mL (75 - 250 nmol/L) Toxicity >100 ng/mL (>250 nmol/L) Performed By: #### L 506.1000 ####[facility] [address] [place], [address] Basic Metabolic Profile (BMP )on 04-07-2024 BUN/CRE 16.2 RATIO Normal 04-07 [facility] Comment on above: Performed By: #### L 100.0100, L501.9520, L500.2500 ####[facility] [address] [place], [address] CA,Total 9.1 mg/dL Normal 8.5-10.1 [facility] Comment on above: Performed By: #### L 100.0100, L501.9520, L500.2500 ####[facility] [address] [place], [address] Chloride [Moles/Vol] 106 mmol/L Normal 98-107 [facility] Comment on above: Performed By: #### L 100.0100, L501.9520, L500.2500 ####[facility] [address] [place], [address] CO2 [Moles/Vol] 25.0 mmol/L Normal 21.0-32.0 [facility] Comment on above: Performed By: #### L 100.0100, L501.9520, L500.2500 ####[facility] [address] [place], [address] Creatinine [Mass/Vol] 1.05 mg/dL Normal 0.70-1.[address] [facility] Comment on above: Result Comment: The validity of the calculated GFR GFRAA in patients over70 years has not been determined. Clinical correlation isessential. Performed By: #### L 100.0100, L501.9520, L500.2500 ####[facility] [address] [place], [address] ECRCL 55.70 ml/min Normal [facility] Comment on above: Performed By: #### L 100.0100, L501.9520, L500.2500 ####[facility] [address] [place], [address] EST GFR - AA 89 mL/min Normal >60 [facility] Comment on above: Result Comment: Afri can Omani GFR Calc Performed By: #### L 100.0100, L501.9520, L500.2500 ####[facility] [address] [place], [address] GAP 4 Low 5-15 [facility] Comment on above: Performed By: #### L 100.0100, L501.9520, L500.2500 ####[facility] [address] [place], [address] GFR/1.73 sq M.predicted among non-blacks MDRD (S/P/Bld) [Vol rate/Area] 73 mL/min/{1.73_m2} Normal >60 [facility] Comment on above: Result Comment: Non- GFR Calc Performed By: #### L 100.0100, L501.9520, L500.2500 ####[facility] [address] [place], [address] Glucose [Mass/Vol] 95 mg/dL Normal 74-106 [facility] Comment on above: Performed By: #### L 100.0100, L501.9520, L500.2500 ####[facility] [address] [place], [address] Potassium [Moles/Vol] 3.6 mmol/L Normal 3.5-5.[address] [facility] Comment on above: Performed By: #### L 100.0100, L501.9520, L500.2500 ####[facility] [address] [place], [address] Sodium [Moles/Vol] 135 mmol/L Low 136-145 [facility] Comment on above: Performed By: #### L 100.0100, L501.9520, L500.2500 ####[facility] [address] [place], [address] Urea nitrogen [Mass/Vol] 17 mg/dL Normal 7-18 [facility] Comment on above: Performed By: #### L 100.0100, L501.9520, L500.2500 ####[facility] [address] [place], [address] CBC W/Diff, Automatedon 10-2 0-4 Absolute Lymph 1.44 X10 3/uL Normal 0.83-4.51 [facility] Comment on above: Performed By: #### L 100.0100, L501.9520, L500.2500 ####[facility] [address] [place], [address] Absolute Neut 3.8 X10 3/uL Normal 2.0-7.7 [facility] Comment on above: Performed By: #### L 100.0100, L501.9520, L500.2500 ####[facility] [address] [place], [address] Basophils/100 WBC (Bld) 1.5 % High 0-1 [facility] Comment on above: Performed By: #### L 100.0100, L501.9520, L500.2500 ####[facility] [address] [place], [address] Eosinophils/100 WBC (Bld) 1.5 % Normal 0-5 [facility] Comment on above: Performed By: #### L 100.0100, L501.9520, L500.2500 ####[facility] [address] [place], [address] Erythrocyte distribution width (RBC) [Ratio] 12.8 % Normal 11.6-14.6 [facility] Comment on above: Performed By: #### L 100.0100, L501.9520, L500.2500 ####[facility] [address] [place], [address] Hematocrit (Bld) [Volume fraction] 42.4 % Normal 40-54 [facility] Comment on above: Performed By: #### L 100.0100, L501.9520, L500.2500 ####[facility] [address] [place], [address] Hemoglobin (Bld) [Mass/Vol] 14.2 g/dL Normal 13.0-16.5 [facility] Comment on above: Performed By: #### L 100.0100, L501.9520, L500.2500 ####[facility] [address] [place], [address] IG% 0.300 Normal 0.0-0.9 [facility] Comment on above: Result Comment: IG% - Immature Granulocytes (promyelocytes, myelocytes andmetamyelocytes) > 1% indicates that a LEFT SHIFT is Present. Performed By: #### L 100.0100, L501.9520, L500.2500 ####[facility] [address] [place], [address] Lymphocytes/100 WBC (Bld) 24.4 % Normal 19-41 [facility] Comment on above: Performed By: #### L 100.0100, L501.9520, L500.2500 ####[facility] [address] [place], [address] MCH (RBC) [Entitic mass] 32.8 pg High 27.0-32.0 [facility] Comment on above: Performed By: #### L 100.0100, L501.9520, L500.2500 ####[facility] [address] [place], [address] MCHC (RBC) [Mass/Vol] 33.5 g/dL Normal 32-[address] [facility] Comment on above: Performed By: #### L 100.0100, L501.9520, L500.2500 ####[facility] [address] [place], [address] MCV (RBC) [Entitic vol] 97.9 fL High 80-94 [facility] Comment on above: Performed By: #### L 100.0100, L501.9520, L500.2500 ####[facility] [address] [place], [address] Monocytes/100 WBC (Bld) 7.8 % Normal 0-10 [facility] Comment on above: Performed By: #### L 100.0100, L501.9520, L500.2500 ####[facility] [address] [place], [address] Neutrophils/100 WBC (Bld) 64.5 % Normal 47-70 [facility] Comment on above: Performed By: #### L 100.0100, L501.9520, L500.2500 ####[facility] [address] [place], [address] Nucleated RBC (Bld) [#/Vol] 0 10*3/uL Normal 0-5 [facility] Comment on above: Performed By: #### L 100.0100, L501.9520, L500.2500 ####[facility] [address] [place], [address] Platelet mean volume (Bld) [Entitic vol] 9.8 fL Normal 6.2-12.0 [facility] Comment on above: Performed By: #### L 100.0100, L501.9520, L500.2500 ####[facility] [address] [place], [address] Platelets (Bld) [#/Vol] 292 10*3/uL Normal 150-450 [facility] Comment on above: Performed By: #### L 100.0100, L501.9520, L500.2500 ####[facility] [address] [place], [address] RBC (Bld) [#/Vol] 4.33 10*6/uL Low 4.6-6.2 [facility] Comment on above: Performed By: #### L 100.0100, L501.9520, L500.2500 ####[facility] [address] [place], [address] RDW SD 46.1 fl High 35.1-43.9 [facility] Comment on above: Performed By: #### L 100.0100, L501.9520, L500.2500 ####[facility] [address] [place], [address] WBC (Bld) [#/Vol] 5.9 10*3/uL Normal 4.4-11.0 [facility] Comment on above: Performed By: #### L 100.0100, L501.9520, L500.2500 ####[facility] [address] [place], [address] Thyroid Stim Hormone (TSH)on 10-20-2024 TSH 1.730 uIU/mL Normal 0.358-3.740 [facility] Comment on above: Performed By: #### L 100.0100, L501.9520, L500.2500 ####[facility] [address] [place], [address] 12 Lead EKGon 04-06-2024 12 Lead EKG Normal [facility] Basic Metabolic Profile (BMP )on 04-06-2024 BUN/CRE 16.2 RATIO Normal 04-07 [facility] Comment on above: Order Comment: 'TROP ' Serial specimen #1, #2 or #3: 1 Performed By: #### L 500.2500, L100.0100, L501.4020 ####[facility] [address] [place], [address] CA,Total 10.0 mg/dL Normal 8.5-10.1 [facility] Comment on above: Order Comment: 'TROP ' Serial specimen #1, #2 or #3: 1 Performed By: #### L 500.2500, L100.0100, L501.4020 ####[facility] [address] [place], [address] Chloride [Moles/Vol] 104 mmol/L Normal 98-107 [facility] Comment on above: Order Comment: 'TROP ' Serial specimen #1, #2 or #3: 1 Performed By: #### L 500.2500, L100.0100, L501.4020 ####[facility] [address] [place], [address] CO2 [Moles/Vol] 31.0 mmol/L Normal 21.0-32.0 [facility] Comment on above: Order Comment: 'TROP ' Serial specimen #1, #2 or #3: 1 Performed By: #### L 500.2500, L100.0100, L501.4020 ####[facility] [address] [place], [address] Creatinine [Mass/Vol] 1.36 mg/dL High 0.70-1.[address] [facility] Comment on above: Order Comment: 'TROP ' Serial specimen #1, #2 or #3: 1 Result Comment: The validity of the calculated GFR GFRAA in patients over70 years has not been determined. Clinical correlation isessential. Performed By: #### L 500.2500, L100.0100, L501.4020 ####[facility] [address] [place], [address] ECRCL 42.94 ml/min Normal [facility] Comment on above: Order Comment: 'TROP ' Serial specimen #1, #2 or #3: 1 Performed By: #### L 500.2500, L100.0100, L501.4020 ####[facility] [address] [place], [address] EST GFR - AA 66 mL/min Normal >60 [facility] Comment on above: Order Comment: 'TROP ' Serial specimen #1, #2 or #3: 1 Result Comment: Afri can [place] GFR Calc Performed By: #### L 500.2500, L100.0100, L501.4020 ####[facility] [address] [place], [address] GAP 3 Low 5-15 [facility] Comment on above: Order Comment: 'TROP ' Serial specimen #1, #2 or #3: 1 Performed By: #### L 500.2500, L100.0100, L501.4020 ####[facility] [address] [place], [address] GFR/1.73 sq M.predicted among non-blacks MDRD (S/P/Bld) [Vol rate/Area] 54 mL/min/{1.73_m2} Low >60 [facility] Comment on above: Order Comment: 'TROP ' Serial specimen #1, #2 or #3: 1 Result Comment: Non- GFR Calc Performed By: #### L 500.2500, L100.0100, L501.4020 ####[facility] [address] [place], [address] Glucose [Mass/Vol] 99 mg/dL Normal 74-106 [facility] Comment on above: Order Comment: 'TROP ' Serial specimen #1, #2 or #3: 1 Performed By: #### L 500.2500, L100.0100, L501.4020 ####[facility] [address] [place], [address] Potassium [Moles/Vol] 4.1 mmol/L Normal 3.5-5.[address] [facility] Comment on above: Order Comment: 'TROP ' Serial specimen #1, #2 or #3: 1 Performed By: #### L 500.2500, L100.0100, L501.4020 ####[facility] [address] [place], [address] Sodium [Moles/Vol] 138 mmol/L Normal 136-145 [facility] Comment on above: Order Comment: 'TROP ' Serial specimen #1, #2 or #3: 1 Performed By: #### L 500.2500, L100.0100, L501.4020 ####[facility] [address] [place], [address] Urea nitrogen [Mass/Vol] 22 mg/dL High 7-18 [facility] Comment on above: Order Comment: 'TROP ' Serial specimen #1, #2 or #3: 1 Performed By: #### L 500.2500, L100.0100, L501.4020 ####[facility] [address] [place], [address] Brain/Head without Contrasto n - Brain/Head without Contrast Normal [facility] CBC W/Diff, Automatedon 10- Absolute Lymph 1.59 X10 3/uL Normal 0.83-4.51 [facility] Comment on above: Performed By: #### L 500.2500, L100.0100, L501.4020 ####[facility] [address] [place], [address] Absolute Neut 4.3 X10 3/uL Normal 2.0-7.7 [facility] Comment on above: Performed By: #### L 500.2500, L100.0100, L501.4020 ####[facility] [address] [place], [address] Basophils/100 WBC (Bld) 1.1 % High 0-1 [facility] Comment on above: Performed By: #### L 500.2500, L100.0100, L501.4020 ####[facility] [address] [place], [address] Eosinophils/100 WBC (Bld) 0.9 % Normal 0-5 [facility] Comment on above: Performed By: #### L 500.2500, L100.0100, L501.4020 ####[facility] [address] [place], [address] Erythrocyte distribution width (RBC) [Ratio] 13.0 % Normal 11.6-14.6 [facility] Comment on above: Performed By: #### L 500.2500, L100.0100, L501.4020 ####[facility] [address] [place], [address] Hematocrit (Bld) [Volume fraction] 49.3 % Normal 40-54 [facility] Comment on above: Performed By: #### L 500.2500, L100.0100, L501.4020 ####[facility] [address] [place], [address] Hemoglobin (Bld) [Mass/Vol] 17.0 g/dL High 13.0-16.5 [facility] Comment on above: Performed By: #### L 500.2500, L100.0100, L501.4020 ####[facility] [address] [place], [address] IG% 0.500 Normal 0.0-0.9 [facility] Comment on above: Result Comment: IG% - Immature Granulocytes (promyelocytes, myelocytes andmetamyelocytes) > 1% indicates that a LEFT SHIFT is Present. Performed By: #### L 500.2500, L100.0100, L501.4020 ####[facility] [address] [place], [address] Lymphocytes/100 WBC (Bld) 24.3 % Normal 19-41 [facility] Comment on above: Performed By: #### L 500.2500, L100.0100, L501.4020 ####[facility] [address] [place], [address] MCH (RBC) [Entitic mass] 33.5 pg High 27.0-32.0 [facility] Comment on above: Performed By: #### L 500.2500, L100.0100, L501.4020 ####[facility] [address] [place], [address] MCHC (RBC) [Mass/Vol] 34.5 g/dL Normal 32-[address] [facility] Comment on above: Performed By: #### L 500.2500, L100.0100, L501.4020 ####[facility] [address] [place], [address] MCV (RBC) [Entitic vol] 97.0 fL High 80-94 [facility] Comment on above: Performed By: #### L 500.2500, L100.0100, L501.4020 ####[facility] [address] [place], [address] Monocytes/100 WBC (Bld) 6.9 % Normal 0-10 [facility] Comment on above: Performed By: #### L 500.2500, L100.0100, L501.4020 ####[facility] [address] [place], [address] Neutrophils/100 WBC (Bld) 66.3 % Normal 47-70 [facility] Comment on above: Performed By: #### L 500.2500, L100.0100, L501.4020 ####[facility] [address] [place], [address] Nucleated RBC (Bld) [#/Vol] 0 10*3/uL Normal 0-5 [facility] Comment on above: Performed By: #### L 500.2500, L100.0100, L501.4020 ####[facility] [address] [place], [address] Platelet mean volume (Bld) [Entitic vol] 10.2 fL Normal 6.2-12.0 [facility] Comment on above: Performed By: #### L 500.2500, L100.0100, L501.4020 ####[facility] [address] [place], [address] Platelets (Bld) [#/Vol] 329 10*3/uL Normal 150-450 [facility] Comment on above: Performed By: #### L 500.2500, L100.0100, L501.4020 ####[facility] [address] [place], [address] RBC (Bld) [#/Vol] 5.08 10*6/uL Normal 4.6-6.2 [facility] Comment on above: Performed By: #### L 500.2500, L100.0100, L501.4020 ####[facility] [address] [place], [address] RDW SD 46.7 fl High 35.1-43.9 [facility] Comment on above: Performed By: #### L 500.2500, L100.0100, L501.4020 ####[facility] [address] [place], [address] WBC (Bld) [#/Vol] 6.5 10*3/uL Normal 4.4-11.0 [facility] Comment on above: Performed By: #### L 500.2500, L100.0100, L501.4020 ####[facility] [address] [place], [address] Chest 1 View (Portable)on Chest 1 View (Portable) Normal [facility] Echo Completeon 04-06-2024 Echo Complete Normal [facility] Emergency Department Summary on 04-06-2024 Emergency Department Summary Normal [facility] H AND P Exam - Hospitaliston 04-06-2024 H&P Exam - Hospitalist Normal [facility] L501.4020on 04-06-2024 TROPONIN-I HS 18 pg/mL Normal 3.0-78.0 [facility] Comment on above: Order Comment: 'TROP ' Serial specimen #1, #2 or #3: 2 Result Comment: Plea se Note: New Test Units and Gender Specific Reference Ranges. For more information see Policy Stat Procedure [place] High Sensitivity Troponin (TNIH) and attachments. Performed By: #### L 501.4020 ####[facility] [address] [place], [address] TROPONIN-I HS 9 pg/mL Normal 3.0-78.0 [facility] Comment on above: Order Comment: 'TROP ' Serial specimen #1, #2 or #3: 1 Result Comment: Plea se Note: New Test Units and Gender Specific Reference Ranges. For more information see Policy Stat Procedure [place] High Sensitivity Troponin (TNIH) and attachments. Performed By: #### L 500.2500, L100.0100, L501.4020 ####[facility] [address] [place], [address] Lumbar Spine 2 or 3 Viewson 04-06-2024 Lumbar Spine 2 or 3 Views Normal [facility] Magnesiumon 04-06-2024 Magnesium [Mass/Vol] 2.3 mg/dL Normal 1.6-2.6 [facility] Comment on above: Performed By: #### L 501.5200 ####[facility] [address] [place], [address] Spine Cervical without Contr ason 04-06-2024 Spine Cervical without Contras Normal [facility] Thoracic Spine 2 Viewson Thoracic Spine 2 Views Normal [facility] Urinalysis, Completeon 04-06 EPI,SQUAMOUS 5-10 SEEN Normal 0-5 [facility] Comment on above: Order Comment: CLEAN CATCH Performed By: #### L 400.0001 ####[facility] [address] [place], [address] BACTERIA 0 SEEN Normal None Seen [facility] Comment on above: Order Comment: CLEAN CATCH Performed By: #### L 400.0001 ####[facility] [address] [place], [address] Mucus Ql (Urine sed) 0 SEEN Normal [facility] Comment on above: Order Comment: CLEAN CATCH Performed By: #### L 400.0001 ####[facility] [address] [place], [address] RBC 0 SEEN Normal 0-5 [facility] Comment on above: Order Comment: CLEAN CATCH Performed By: #### L 400.0001 ####[facility] [address] [place], [address] WBC 0 SEEN Normal 0-5 [facility] Comment on above: Order Comment: CLEAN CATCH Performed By: #### L 400.0001 ####[facility] [address] [place], [address] UA DIP, URINE (POC)on 2023 BILIRUBIN UA (POCT) Negative Negative [facility] CLARITY UA (POCT) Cloudy [facility] COLOR UA (POCT) Yellow [facility] GLUCOSE UA (POCT) Negative Negative mg/dL [facility] Hemoglobin Ql (U) Negative Negative [facility] Interpretation and review of laboratory results Abnormal [facility] KETONE UA (POCT) Trace Negative mg/dL [facility] LEUKOCYTES UA (POCT) Trace Abnormal Negative [facility] NITRITE UA (POCT) Positive Abnormal Negative [facility] PH UA (POCT) 6.0 4.5 - 8.0 [facility] Protein Ql (U) 100 mg/dL Abnormal Negative [facility] SPECIFIC GRAVITY UA (POCT) 1.025 1.005 - 1.030 [facility] UROBILINOGEN UA (POCT) 0.2 Malaika l E.U./dL [facility] Location:[facility], [address] [place] [address] Rd, [place], [place], [address] [place] [address] POINT OF CARE [facility] Alcohol, Blood (Medical)-Ser umon 02-20-2024 SERUM ETOH < 3.0 Normal [facility] Comment on above: Result Comment: The serum:whole blood ethanol ratio is approximately 1.14and varies slightly with hematocrit.Medical Alcohol reference interval and critical value innon-tolerant individuals; 50 - 100 Impairment 100 Intoxication 100 - 250 Severe Poisoning 250 - 400 Deep/possible fatal coma Performed By: #### L 501.2450, L100.0500, L500.2500, L501.5425, L501.9100 ####[facility] [address] [place], [place], [id number] Basic Metabolic Profile (BMP )on 02-20-2024 BUN/CRE 13.3 RATIO Normal 10-20 [facility] Comment on above: Order Comment: 1Y Performed By: #### L 501.2450, L100.0500, L500.2500, L501.5425, L501.9100 ####[facility] [address] [place], [place], [id number] CA,Total 10.7 mg/dL High 8.5-10.1 [facility] Comment on above: Order Comment: 1Y Performed By: #### L 501.2450, L100.0500, L500.2500, L501.5425, L501.9100 ####[facility] [address] [place], [address] Chloride [Moles/Vol] 98 mmol/L Normal 98-107 [facility] Comment on above: Order Comment: 1Y Performed By: #### L 501.2450, L100.0500, L500.2500, L501.5425, L501.9100 ####[facility] [address] [place], [address] CO2 [Moles/Vol] 30.0 mmol/L Normal 21.0-32.0 [facility] Comment on above: Order Comment: 1Y Performed By: #### L 501.2450, L100.0500, L500.2500, L501.5425, L501.9100 ####[facility] [address] [place], [address] Creatinine [Mass/Vol] 1.35 mg/dL High 0.70-1.[address] [facility] Comment on above: Order Comment: 1Y Result Comment: The validity of the calculated GFR GFRAA in patients over70 years has not been determined. Clinical correlation isessential. Performed By: #### L 501.2450, L100.0500, L500.2500, L501.5425, L501.9100 ####[facility] [address] [place], [address] EST GFR - AA 66 mL/min Normal >60 [facility] Comment on above: Order Comment: 1Y Result Comment: Afri can [place] GFR Calc Performed By: #### L 501.2450, L100.0500, L500.2500, L501.5425, L501.9100 ####[facility] [address] [place], [address] GAP 9 Normal 5-15 [facility] Comment on above: Order Comment: 1Y Performed By: #### L 501.2450, L100.0500, L500.2500, L501.5425, L501.9100 ####[facility] [address] [place], [address] GFR/1.73 sq M.predicted among non-blacks MDRD (S/P/Bld) [Vol rate/Area] 55 mL/min/{1.73_m2} Low >60 [facility] Comment on above: Order Comment: 1Y Result Comment: Non- GFR Calc Performed By: #### L 501.2450, L100.0500, L500.2500, L501.5425, L501.9100 ####[facility] [address] [place], [address] Glucose [Mass/Vol] 84 mg/dL Normal 74-106 [facility] Comment on above: Order Comment: 1Y Performed By: #### L 501.2450, L100.0500, L500.2500, L501.5425, L501.9100 ####[facility] [address] [place], [address] Potassium [Moles/Vol] 4.3 mmol/L Normal 3.5-5.[address] [facility] Comment on above: Order Comment: 1Y Performed By: #### L 501.2450, L100.0500, L500.2500, L501.5425, L501.9100 ####[facility] [address] [place], [address] Sodium [Moles/Vol] 137 mmol/L Normal 136-145 [facility] Comment on above: Order Comment: 1Y Performed By: #### L 501.2450, L100.0500, L500.2500, L501.5425, L501.9100 ####[facility] [address] [place], [address] Urea nitrogen [Mass/Vol] 18 mg/dL Normal 7-18 [facility] Comment on above: Order Comment: 1Y Performed By: #### L 501.2450, L100.0500, L500.2500, L501.5425, L501.9100 ####[facility] [address] [place], [address] Bedside Glucoseon 02-20-2024 FINGERSTICK GLU 83 mg/dL Normal 74-106 [facility] Comment on above: Result Comment: RONA LO OF PATIENT CARE PER NURSING PROTOCOL Performed By: #### L 501.080 ####[facility] [address] [place], [address] Brain/Head without Contrasto n 02-20-2024 Brain/Head without Contrast Normal [facility] CBC-Complete Blood Cnt No Di ffon 02-20-2024 Erythrocyte distribution width (RBC) [Ratio] 13.2 % Normal 11.6-14.6 [facility] Comment on above: Performed By: #### L 501.2450, L100.0500, L500.2500, L501.5425, L501.9100 ####[facility] [address] [place], [address] Hematocrit (Bld) [Volume fraction] 51.8 % Normal 40-54 [facility] Comment on above: Performed By: #### L 501.2450, L100.0500, L500.2500, L501.5425, L501.9100 ####[facility] [address] [place], [address] Hemoglobin (Bld) [Mass/Vol] 17.1 g/dL High 13.0-16.5 [facility] Comment on above: Performed By: #### L 501.2450, L100.0500, L500.2500, L501.5425, L501.9100 ####[facility] [address] [place], [address] MCH (RBC) [Entitic mass] 32.0 pg Normal 27.0-32.0 [facility] Comment on above: Performed By: #### L 501.2450, L100.0500, L500.2500, L501.5425, L501.9100 ####[facility] [address] [place], [address] MCHC (RBC) [Mass/Vol] 33.0 g/dL Normal 32-[address] [facility] Comment on above: Performed By: #### L 501.2450, L100.0500, L500.2500, L501.5425, L501.9100 ####[facility] [address] [place], [address] MCV (RBC) [Entitic vol] 96.8 fL High 80-94 [facility] Comment on above: Performed By: #### L 501.2450, L100.0500, L500.2500, L501.5425, L501.9100 ####[facility] [address] [place], [address] Platelet mean volume (Bld) [Entitic vol] 9.8 fL Normal 6.2-12.0 [facility] Comment on above: Performed By: #### L 501.2450, L100.0500, L500.2500, L501.5425, L501.9100 ####[facility] [address] [place], [address] Platelets (Bld) [#/Vol] 307 10*3/uL Normal 150-450 [facility] Comment on above: Performed By: #### L 501.2450, L100.0500, L500.2500, L501.5425, L501.9100 ####[facility] [address] [place], [address] RBC (Bld) [#/Vol] 5.35 10*6/uL Normal 4.6-6.2 [facility] Comment on above: Performed By: #### L 501.2450, L100.0500, L500.2500, L501.5425, L501.9100 ####[facility] [address] [place], [address] RDW SD 47.1 fl High 35.1-43.9 [facility] Comment on above: Performed By: #### L 501.2450, L100.0500, L500.2500, L501.5425, L501.9100 ####[facility] [address] [place], [address] WBC (Bld) [#/Vol] 6.6 10*3/uL Normal 4.4-11.0 [facility] Comment on above: Performed By: #### L 501.2450, L100.0500, L500.2500, L501.5425, L501.9100 ####[facility] [address] [place], [address] Chest 1 View (Portable)on Chest 1 View (Portable) Normal [facility] Emergency Department Summary on 02-20-2024 Emergency Department Summary Normal [facility] Femur Min 2 Viewson 02-20-20 24 Femur Min 2 Views Normal [facility] Knee 1 or 2 Viewson 02-20-20 24 Knee 1 or 2 Views Normal [facility] L501.4020on 02-20-2024 TROPONIN-I HS 18 pg/mL Normal 3.0-78.0 [facility] Comment on above: Result Comment: Plea se Note: New Test Units and Gender Specific Reference Ranges. For more information see Policy Stat Procedure [place] High Sensitivity Troponin (TNIH) and attachments. Performed By: #### L 501.4020 ####[facility] [address] [place], [address] L501.5425on 02-20-2024 TROPONIN-I HS 14 pg/mL Normal 3.0-78.0 [facility] Comment on above: Order Comment: 1Y Result Comment: Plea se Note: New Test Units and Gender Specific Reference Ranges. For more information see Policy Stat Procedure [place] High Sensitivity Troponin (TNIH) and attachments. Performed By: #### L 501.2450, L100.0500, L500.2500, L501.5425, L501.9100 ####[facility] [address] [place], [address] Lipaseon 02-20-2024 Lipase [Catalytic activity/Vol] 23 U/L Normal 13-75 [facility] Comment on above: Order Comment: 1Y Result Comment: Brant gregorio note:LIPASE revised reference range effective 22.New Lipase methodology. Expected to produce lower valuesthan the previous assay method.NEW Reference Range: 13 - 75 U/L Performed By: #### L 501.2450, L100.0500, L500.2500, L501.5425, L501.9100 ####[facility] [address] [place], [address] Spine Cervical without Contr ason 02-20-2024 Spine Cervical without Contras Normal [facility] Spine Thoracic without Contr ason 02-20-2024 Spine Thoracic without Contras Normal [facility] Urinalysis, Completeon 02-19 EPI,RENAL 0-5 SEEN Normal 0-5 [facility] Comment on above: Order Comment: MEHREEN CTOR TO SPECIFY Performed By: #### L 400.0001 ####[facility] [address] [place], [address] EPI,SQUAMOUS 0-5 SEEN Normal 0-5 [facility] Comment on above: Order Comment: MEHREEN CTOR TO SPECIFY Performed By: #### L 400.0001 ####[facility] [address] [place], [address] BACTERIA 3+ /hpf Normal None Seen [facility] Comment on above: Order Comment: MEHREEN CTOR TO SPECIFY Performed By: #### L 400.0001 ####[facility] [address] [place], [address] WBC 0-5 SEEN Normal 0-5 [facility] Comment on above: Order Comment: COLLE CTOR TO SPECIFY Performed By: #### L 400.0001 ####[facility] [address] [place], [address] Mucus Ql (Urine sed) 0 SEEN Normal [facility] Comment on above: Order Comment: MEHREEN CTOR TO SPECIFY Performed By: #### L 400.0001 ####[facility] [address] [place], [address] RBC 0 SEEN Normal 0-5 [facility] Comment on above: Order Comment: MEHREEN CTOR TO SPECIFY Performed By: #### L 400.0001 ####[facility] [address] [place] [address] Urine Drug Screen (VISTA)on 02-20-2024 AMPHETAMINES Negative Normal <1000 ng/mL [facility] Comment on above: Performed By: #### L 505.5000 ####[facility] [address] [place] [address] BARBITIURATES Negative Normal < 200 ng/mL [facility] Comment on above: Performed By: #### L 505.5000 ####[facility] [address] [place] [address] BENZODIAZIPINE Negative Normal < 200 ng/mL [facility] Comment on above: Performed By: #### L 505.5000 ####[facility] [address] [place] [address] COCAINE Negative Normal < 300 ng/mL [facility] Comment on above: Performed By: #### L 505.5000 ####[facility] [address] [place] [address] ECSTACY Negative Normal < 500 ng/mL [facility] Comment on above: Performed By: #### L 505.5000 ####[facility] [address] [place] [address] METHADONE Negative Normal < 300 ng/mL [facility] Comment on above: Performed By: #### L 505.5000 ####[facility] [address] [place], [address] OPIATES Negative Normal < 300 ng/mL [facility] Comment on above: Performed By: #### L 505.5000 ####[facility] [address] [place], [address] PCP Negative Normal < 25 ng/mL [facility] Comment on above: Performed By: #### L 505.5000 ####[facility] [address] [place], [address] THC Negative Normal < 50 ng/mL [facility] Comment on above: Performed By: #### L 505.5000 ####[facility] [address] [place], [address] VISTA UDS PH 4 Normal [facility] Comment on above: Performed By: #### L 505.5000 ####[facility] [address] [place], [address] Emergency Department Summary on 01-03-2024 Emergency Department Summary Normal [facility] Tibia Fibula 2 Viewson 01-02 Tibia Fibula 2 Views Normal [facility] 12 Lead EKGon 12-08-2023 12 Lead EKG Normal [facility] CBC W/Diff, Automatedon 11-18 Absolute Lymph 0.96 X10 3/uL Normal 0.83-4.51 [facility] Comment on above: Performed By: #### L 500.4050, L100.0100 ####[facility] [address] [place], [address] Absolute Neut 4.4 X10 3/uL Normal 2.0-7.7 [facility] Comment on above: Performed By: #### L 500.4050, L100.0100 ####[facility] [address] [place], [address] Basophils/100 WBC (Bld) 1.2 % High 0-1 [facility] Comment on above: Performed By: #### L 500.4050, L100.0100 ####[facility] [address] [place], [address] Eosinophils/100 WBC (Bld) 0.5 % Normal 0-5 [facility] Comment on above: Performed By: #### L 500.4050, L100.0100 ####[facility] [address] [place], [address] Erythrocyte distribution width (RBC) [Ratio] 12.1 % Normal 11.6-14.6 [facility] Comment on above: Performed By: #### L 500.4050, L100.0100 ####[facility] [address] [place], [address] Hematocrit (Bld) [Volume fraction] 47.3 % Normal 40-54 [facility] Comment on above: Performed By: #### L 500.4050, L100.0100 ####[facility] [address] [place], [address] Hemoglobin (Bld) [Mass/Vol] 15.8 g/dL Normal 13.0-16.5 [facility] Comment on above: Performed By: #### L 500.4050, L100.0100 ####[facility] [address] [place], [address] IG% 0.300 Normal 0.0-0.9 [facility] Comment on above: Result Comment: IG% - Immature Granulocytes (promyelocytes, myelocytes andmetamyelocytes) > 1% indicates that a LEFT SHIFT is Present. Performed By: #### L 500.4050, L100.0100 ####[facility] [address] [place], [address] Lymphocytes/100 WBC (Bld) 16.3 % Low 19-41 [facility] Comment on above: Performed By: #### L 500.4050, L100.0100 ####[facility] [address] [place], [address] MCH (RBC) [Entitic mass] 31.5 pg Normal 27.0-32.0 [facility] Comment on above: Performed By: #### L 500.4050, L100.0100 ####[facility] [address] [place], [address] MCHC (RBC) [Mass/Vol] 33.4 g/dL Normal 32-[address] [facility] Comment on above: Performed By: #### L 500.4050, L100.0100 ####[facility] [address] [place], [address] MCV (RBC) [Entitic vol] 94.4 fL High 80-94 [facility] Comment on above: Performed By: #### L 500.4050, L100.0100 ####[facility] [address] [place], [address] Monocytes/100 WBC (Bld) 6.3 % Normal 0-10 [facility] Comment on above: Performed By: #### L 500.4050, L100.0100 ####[facility] [address] [place], [address] Neutrophils/100 WBC (Bld) 75.4 % High 47-70 [facility] Comment on above: Performed By: #### L 500.4050, L100.0100 ####[facility] [address] [place], [address] Nucleated RBC (Bld) [#/Vol] 0 10*3/uL Normal 0-5 [facility] Comment on above: Performed By: #### L 500.4050, L100.0100 ####[facility] [address] [place], [address] Platelet mean volume (Bld) [Entitic vol] 9.9 fL Normal 6.2-12.0 [facility] Comment on above: Performed By: #### L 500.4050, L100.0100 ####[facility] [address] [place], [address] Platelets (Bld) [#/Vol] 300 10*3/uL Normal 150-450 [facility] Comment on above: Performed By: #### L 500.4050, L100.0100 ####[facility] [address] [place], [address] RBC (Bld) [#/Vol] 5.01 10*6/uL Normal 4.6-6.2 [facility] Comment on above: Performed By: #### L 500.4050, L100.0100 ####[facility] [address] [place], [address] RDW SD 42.1 fl Normal 35.1-43.9 [facility] Comment on above: Performed By: #### L 500.4050, L100.0100 ####[facility] [address] [place], [address] WBC (Bld) [#/Vol] 5.9 10*3/uL Normal 4.4-11.0 [facility] Comment on above: Performed By: #### L 500.4050, L100.0100 ####[facility] [address] [place], [address] Chest 1 View (Portable)on Chest 1 View (Portable) Normal [facility] Comprehensive Metabolic Prof ilon 12-08-2023 Albumin [Mass/Vol] 3.9 g/dL Normal 3.2-5.0 [facility] Comment on above: Performed By: #### L 500.4050, L100.0100 ####[facility] [address] [place], [address] Albumin/Globulin [Mass ratio] 1.1 {ratio} Normal 0.9-2.4 [facility] Comment on above: Performed By: #### L 500.4050, L100.0100 ####[facility] [address] [place], [address] ALK P 79 U/L Normal 45-117 [facility] Comment on above: Performed By: #### L 500.4050, L100.0100 ####[facility] [address] [place], [address] ALT [Catalytic activity/Vol] 54 U/L Normal 16-61 [facility] Comment on above: Performed By: #### L 500.4050, L100.0100 ####[facility] [address] [place], [address] AST [Catalytic activity/Vol] 33 U/L Normal 15-37 [facility] Comment on above: Performed By: #### L 500.4050, L100.0100 ####[facility] [address] [place], [address] Bilirubin [Mass/Vol] 0.20 mg/dL Normal 0.20-1.00 [facility] Comment on above: Result Comment: For patients on eltrombopag therapy, use of Dimension [place] TBIL is not recommended. Performed By: #### L 500.4050, L100.0100 ####[facility] [address] [place], [address] BUN/CRE 15.5 RATIO Normal 10-20 [facility] Comment on above: Performed By: #### L 500.4050, L100.0100 ####[facility] [address] [place], [address] CA,Total 9.6 mg/dL Normal 8.5-10.1 [facility] Comment on above: Performed By: #### L 500.4050, L100.0100 ####[facility] [address] [place], [address] Chloride [Moles/Vol] 103 mmol/L Normal 98-107 [facility] Comment on above: Performed By: #### L 500.4050, L100.0100 ####[facility] [address] [place], [address] CO2 [Moles/Vol] 24.0 mmol/L Normal 21.0-32.0 [facility] Comment on above: Performed By: #### L 500.4050, L100.0100 ####[facility] [address] [place], [address] Creatinine [Mass/Vol] 1.10 mg/dL Normal 0.70-1.[address] [facility] Comment on above: Result Comment: The validity of the calculated GFR GFRAA in patients over70 years has not been determined. Clinical correlation isessential. Performed By: #### L 500.4050, L100.0100 ####[facility] [address] [place], [address] ECRCL 56.42 ml/min Normal [facility] Comment on above: Performed By: #### L 500.4050, L100.0100 ####[facility] [address] [place], [address] EST GFR - AA 84 mL/min Normal >60 [facility] Comment on above: Result Comment: Afri can [place] GFR Calc Performed By: #### L 500.4050, L100.0100 ####[facility] [address] [place], [address] GAP 11 Normal 5-15 [facility] Comment on above: Performed By: #### L 500.4050, L100.0100 ####[facility] [address] [place], [address] GFR/1.73 sq M.predicted among non-blacks MDRD (S/P/Bld) [Vol rate/Area] 69 mL/min/{1.73_m2} Normal >60 [facility] Comment on above: Result Comment: Non- GFR Calc Performed By: #### L 500.4050, L100.0100 ####[facility] [address] [place], [address] Globulin (S) [Mass/Vol] 3.7 g/dL Normal 2.2-4.2 [facility] Comment on above: Performed By: #### L 500.4050, L100.0100 ####[facility] [address] [place], [address] Glucose [Mass/Vol] 118 mg/dL High 74-106 [facility] Comment on above: Result Comment: Fast ing Glucose result from 100 to 125 mg/dLsuggests IMPAIRED HOMEOSTASIS per A.D.A. criteria. Performed By: #### L 500.4050, L100.0100 ####[facility] [address] [place], [address] Potassium [Moles/Vol] 3.7 mmol/L Normal 3.5-5.[address] [facility] Comment on above: Performed By: #### L 500.4050, L100.0100 ####[facility] [address] [place], [address] Sodium [Moles/Vol] 138 mmol/L Normal 136-145 [facility] Comment on above: Performed By: #### L 500.4050, L100.0100 ####[facility] [address] [place], [address] T PROT 7.6 g/dL Normal 6.4-8.2 [facility] Comment on above: Performed By: #### L 500.4050, L100.0100 ####[facility] [address] [place], [address] Urea nitrogen [Mass/Vol] 17 mg/dL Normal 7-18 [facility] Comment on above: Performed By: #### L 500.4050, L100.0100 ####[facility] [address] [place], [address] Emergency Department Summary on 12-08-2023 Emergency Department Summary Normal [facility] Prothrombin Time w/INRon INR Coag (PPP) [Relative time] 1.1 {INR} Normal [facility] Comment on above: Performed By: #### L 300.3900 ####[facility] [address] [place], [address] PT Coag (PPP) [Time] 14.0 s Normal 11.7-14.9 [facility] Comment on above: Performed By: #### L 300.3900 ####[facility] [address] [place], [address] Urinalysis, Completeon 12-07 BACTERIA Normal None Seen [facility] Comment on above: Order Comment: MEHREEN CTOR TO SPECIFY Result Comment: NO U RINE COLLECTED. PATIENT DEPARTED ED. Performed By: #### L 400.0001 ####[facility] [address] [place], [address] BILIRUBIN URINE Normal Negative [facility] Comment on above: Order Comment: COLLE CTOR TO SPECIFY Result Comment: NO U RINE COLLECTED. PATIENT DEPARTED ED. Performed By: #### L 400.0001 ####[facility] [address] [place], [address] Clarity (U) Normal Clear [facility] Comment on above: Order Comment: COLLE CTOR TO SPECIFY Result Comment: NO U RINE COLLECTED. PATIENT DEPARTED ED. Performed By: #### L 400.0001 ####[facility] [address] [place], [address] Color (U) Normal Yellow [facility] Comment on above: Order Comment: MEHREEN CTOR TO SPECIFY Result Comment: NO U RINE COLLECTED. PATIENT DEPARTED ED. Performed By: #### L 400.0001 ####[facility] [address] [place], [address] EPI,SQUAMOUS Normal 0-5 [facility] Comment on above: Order Comment: COLLE CTOR TO SPECIFY Result Comment: NO U RINE COLLECTED. PATIENT DEPARTED ED. Performed By: #### L 400.0001 ####[facility] [address] [place], [address] GLUCOSE, UR Normal Normal [facility] Comment on above: Order Comment: MEHREEN CTOR TO SPECIFY Result Comment: NO U RINE COLLECTED. PATIENT DEPARTED ED. Performed By: #### L 400.0001 ####[facility] [address] [place], [address] KETONE UR Normal Negative [facility] Comment on above: Order Comment: MEHREEN CTOR TO SPECIFY Result Comment: NO U RINE COLLECTED. PATIENT DEPARTED ED. Performed By: #### L 400.0001 ####[facility] [address] [place], [address] LEUK ESTERASE Normal Negative [facility] Comment on above: Order Comment: MEHREEN CTOR TO SPECIFY Result Comment: NO U RINE COLLECTED. PATIENT DEPARTED ED. Performed By: #### L 400.0001 ####[facility] [address] [place], [address] Mucus Ql (Urine sed) Normal [facility] Comment on above: Order Comment: MEHREEN CTOR TO SPECIFY Result Comment: NO U RINE COLLECTED. PATIENT DEPARTED ED. Performed By: #### L 400.0001 ####[facility] [address] [place], [address] Nitrite Ql (U) Normal Negative [facility] Comment on above: Order Comment: MEHREEN CTOR TO SPECIFY Result Comment: NO U RINE COLLECTED. PATIENT DEPARTED ED. Performed By: #### [id number] ####[facility] [id number] [place], [address] OCCULT BLOOD-UR Normal Negative [facility] Comment on above: Order Comment: MEHREEN CTOR TO SPECIFY Result Comment: NO U RINE COLLECTED. PATIENT DEPARTED ED. Performed By: #### [id number] ####[facility] [id number] [place], [address] pH UR Normal 5.0 - 8.0 [facility] Comment on above: Order Comment: MEHREEN CTOR TO SPECIFY Result Comment: NO U RINE COLLECTED. PATIENT DEPARTED ED. Performed By: #### [id number] ####[facility] [id number] [place], [address] PROT DIPSTX Normal Negative [facility] Comment on above: Order Comment: MEHREEN CTOR TO SPECIFY Result Comment: NO U RINE COLLECTED. PATIENT DEPARTED ED. Performed By: #### [id number] ####[facility] [id number] [place], [address] RBC Normal 0-5 [facility] Comment on above: Order Comment: MEHREEN CTOR TO SPECIFY Result Comment: NO U RINE COLLECTED. PATIENT DEPARTED ED. Performed By: #### [id number] ####[facility] [id number] [place], [address] SP.GR. DIPSTX Normal 1.002-1.030 [facility] Comment on above: Order Comment: MEHREEN CTOR TO SPECIFY Result Comment: NO U RINE COLLECTED. PATIENT DEPARTED ED. Performed By: #### [id number] ####[facility] [id number] [place], [address] UR Preservative Normal [facility] Comment on above: Order Comment: MEHREEN CTOR TO SPECIFY Result Comment: NO U RINE COLLECTED. PATIENT DEPARTED ED. Performed By: #### [id number] ####[facility] [id number] [place], [address] UROBILI Normal Normal [facility] Comment on above: Order Comment: COLLE CTOR TO SPECIFY Result Comment: NO U RINE COLLECTED. PATIENT DEPARTED ED. Performed By: #### [id number] ####[facility] [id number] [place], [address] WBC Normal 0-5 [facility] Comment on above: Order Comment: COLLE CTOR TO SPECIFY Result Comment: NO U RINE COLLECTED. PATIENT DEPARTED ED. Performed By: #### [id number] ####[facility] [id number] [place], [address] Absolute lymphocyte countOrd ered By: Brody Maynard on 07-31-2023 Lymphocytes Auto (Unsp spec) [#/Vol] 0.39 10*3/uL 0.83-4.51 [facility] Automated lymphocyte count a s percentage of total leukocytesOrdered By: Brody Maynard on 07-31-2023 Lymphocytes/100 WBC Auto (Unsp spec) 7.1 % 19-41 [facility] Basophil percentageOrdered B y: Brody Maynard on 07-31-2023 Basophil percentage 12.6 g/dL 13.0-16.5 [facility] Basophil percentage 113 mg/dL 74-106 [facility] Basophil percentage 139 mmol/L 136-145 [facility] Basophil percentage 4.0 mmol/L 3.5-5.1 [facility] Basophil percentage 102 mmol/L 98-107 [facility] Basophils (Bld) [#/Vol] 5.5 10*3/uL 4.4-11.0 [facility] Basophils (Bld) [#/Vol] 4.7 10*3/uL 2.0-7.7 [facility] Basophils/100 WBC (Bld) 85.0 % 47-70 [facility] Basophils/100 WBC (Bld) 7.1 % 0-10 [facility] Basophils/100 WBC (Bld) 0.0 % 0-5 [facility] Basophils/100 WBC (Bld) 0.4 % 0-1 [facility] Determination of erythrocyte mean corpuscular volume (MCV)Ordered By: Brody Maynard on 07-31-2023 MCV (RBC) [Entitic vol] 98.4 fL 80-94 [facility] Erythrocyte distribution wid th ratioOrdered By: Brody Maynard on 07-31-2023 Erythrocyte distribution width (RBC) [Ratio] 13.2 % 11.6-14.6 [facility] Erythrocyte distribution wid th standard deviationOrdered By: Brody Maynard on 07-31-2023 Erythrocyte distribution width (RBC) [Entitic vol] 47.2 fL 35.1-43.9 [facility] Hematocrit Auto (Bld) [Volum e fraction]Ordered By: Brody Maynard on 07-31-2023 Hematocrit (Bld) [Volume fraction] 37.9 % 40-54 [facility] Immature granulocytes/100 WB C Auto (Bld)Ordered By: Brody Maynard on 07-31-2023 Immature granulocytes/100 WBC (Bld) 0.400 % 0.0-0.9 [facility] No Panel InformationOrdered By: Brody Maynard on 07-31-2023 32.7 pg 27.0-32.0 [facility] 33.2 g/dL 32-36 [facility] 284 K/mm3 150-450 [facility] 10.1 fl 6.2-12.0 [facility] 0 % 0-5 [facility] 77 mL/min >60 [facility] 93 mL/min >60 [facility] 60.90 ml/min [facility] 22.8 RATIO 10-20 [facility] 29.0 mmol/L 21.0-32.0 [facility] RBC Auto (Bld) [#/Vol]Ordere d By: Brody Maynard on 07-31-2023 RBC (Bld) [#/Vol] 3.85 10*6/uL 4.6-6.2 [facility] Serum or plasma calcium luis urement (mass/volume)Ordered By: Brody Maynard on 07-31-2023 Calcium [Mass/Vol] 8.6 mg/dL 8.5-10.1 [facility] Serum or plasma creatinine m easurement (mass/volume)Ordered By: Brody Maynard on 07-31-2023 Creatinine [Mass/Vol] 1.01 mg/dL 0.70-1.[address] [facility] Serum or plasma urea nitroge n measurement (mass/volume)Ordered By: Brody Maynard on 07-31-2023 Urea nitrogen [Mass/Vol] 23 mg/dL 7-18 [facility] Thin prep Papanicolaou smear with manual screeningOrdered By: Brody Maynard on 07-31-2023 Thin prep Papanicolaou smear with manual screening 8 5-15 [facility] Absolute lymphocyte countOrd ered By: Андрей Ng on 07-30-2023 Lymphocytes Auto (Unsp spec) [#/Vol] 0.60 10*3/uL 0.83-4.51 [facility] Automated lymphocyte count a s percentage of total leukocytesOrdered By: Андрей Ng on 07-30-2023 Lymphocytes/100 WBC Auto (Unsp spec) 10.9 % 19-41 [facility] Base excessOrdered By: ED IN MARGIEER on 07-30-2023 Base excess Calc (BldV) [Moles/Vol] 2 mmol/L -1.0-3.5 [facility] Basophil percentageOrdered B y: Андрей Ng on 07-30-2023 Basophil percentage 0 SEEN /hpf 0-5 [facility] Basophil percentage 13.3 g/dL 13.0-16.5 [facility] Basophil percentage 114 mg/dL 74-106 [facility] Basophil percentage 138 mmol/L 136-145 [facility] Basophil percentage 4.2 mmol/L 3.5-5.1 [facility] Basophil percentage 102 mmol/L 98-107 [facility] Basophils (Bld) [#/Vol] 5.5 10*3/uL 4.4-11.0 [facility] Basophils (Bld) [#/Vol] 4.2 10*3/uL 2.0-7.7 [facility] Basophils/100 WBC (Bld) 76.5 % 47-70 [facility] Basophils/100 WBC (Bld) 10.7 % 0-10 [facility] Basophils/100 WBC (Bld) 0.5 % 0-5 [facility] Basophils/100 WBC (Bld) 0.9 % 0-1 [facility] Bilirubin Test strip Ql (U)O rdered By: Андрей Ng on 07-30-2023 Bilirubin Ql (U) Negative Negative [facility] CO2 (BldV) [Moles/Vol]Ordere d By: ED PROVIDER on 07-30-2023 CO2 [Moles/Vol] 29 mmol/L 23-33 [facility] Determination of erythrocyte mean corpuscular volume (MCV)Ordered By: Андрей Ng on 07-30-2023 MCV (RBC) [Entitic vol] 99.3 fL 80-94 [facility] Erythrocyte distribution wid th ratioOrdered By: Андрей Ng on 07-30-2023 Erythrocyte distribution width (RBC) [Ratio] 13.2 % 11.6-14.6 [facility] Erythrocyte distribution wid th standard deviationOrdered By: Андрей Ng on 07-30-2023 Erythrocyte distribution width (RBC) [Entitic vol] 48.3 fL 35.1-43.9 [facility] Hematocrit Auto (Bld) [Volum e fraction]Ordered By: Андрей Ng on 07-30-2023 Hematocrit (Bld) [Volume fraction] 40.4 % 40-54 [facility] Immature granulocytes/100 WB C Auto (Bld)Ordered By: Андрей Ng on 07-30-2023 Immature granulocytes/100 WBC (Bld) 0.500 % 0.0-0.9 [facility] Ketones Test strip Ql (U)Ord ered By: Андрей Ng on 07-30-2023 Ketones Ql (U) Negative Negative [facility] Mucus LM Ql (Urine sed)Order ed By: Андрей Ng on 07-30-2023 Mucus Ql (Urine sed) 0 SEEN /hpf [facility] Nitrite Test strip Ql (U)Ord ered By: Андрей Ng on 07-30-2023 Nitrite Ql (U) Negative Negative [facility] No Panel InformationOrdered By: Андрей Ng on 07-30-2023 0 SEEN /hpf 0-5 [facility] Influenzae A [facility] 32.7 pg 27.0-32.0 [facility] 32.9 g/dL 32-36 [facility] 262 K/mm3 150-450 [facility] 9.4 fl 6.2-12.0 [facility] 0 % 0-5 [facility] 67 mL/min >60 [facility] 81 mL/min >60 [facility] 55.00 ml/min [facility] 22.8 RATIO 10-20 [facility] 15 pg/mL 3.0-78.0 [facility] 29.0 mmol/L 21.0-32.0 [facility] 218.8 pg/mL 0-100 [facility] No Panel InformationOrdered By: ED PROVIDER on 07-30-2023 LASHAE [facility] Not entered [facility] Cannula [facility] 3.0 [facility] 28 mmol/L 22-26 [facility] 69 % 50-70 [facility] PCO2 venousOrdered By: ED IN OVIDER on 07-30-2023 CO2 (BldV) [Partial pressure] 48.6 mm[Hg] 41-51 [facility] PO2 venousOrdered By: ED PRO VIDER on 07-30-2023 Oxygen (BldV) [Partial pressure] 38 mm[Hg] 25-40 [facility] Protein Test strip Ql (U)Ord ered By: Андрей Ng on 07-30-2023 Protein Ql (U) 30 mg/dl Negative [facility] RBC Auto (Bld) [#/Vol]Ordere d By: нАдрей Ng on 07-30-2023 RBC (Bld) [#/Vol] 4.07 10*6/uL 4.6-6.2 [facility] Serum or plasma calcium luis urement (mass/volume)Ordered By: Андрей Ng on 07-30-2023 Calcium [Mass/Vol] 9.2 mg/dL 8.5-10.1 [facility] Serum or plasma creatinine m easurement (mass/volume)Ordered By: Андрей Ng on 07-30-2023 Creatinine [Mass/Vol] 1.14 mg/dL 0.70-1.[address] [facility] Serum or plasma urea nitroge n measurement (mass/volume)Ordered By: Андрей Ng on 07-30-2023 Urea nitrogen [Mass/Vol] 26 mg/dL 7-18 [facility] Squamous epithelial cells de tection in urine sediment by light microscopyOrdered By: Андрей Ng on 07-30-2023 Epithelial cells.squamous LM Ql (Urine sed) 0 SEEN /hpf 0-5 [facility] Thin prep Papanicolaou smear with manual screeningOrdered By: Андрей Ng on 07-30-2023 Thin prep Papanicolaou smear with manual screening 7 5-15 [facility] Urine blood detectionOrdered By: Андрей Ng on 07-30-2023 RBC Ql (U) 10 /ul Negative [facility] Urine clarityOrdered By: Italia Ng on 07-30-2023 Clarity (U) Clear Clear [facility] Urine color determinationOrd ered By: Андрей Ng on 07-30-2023 Color (U) Yellow Yellow [facility] Urine glucose detectionOrder ed By: Андрей Ng on 07-30-2023 Glucose Ql (U) Normal mg/dl Normal [facility] Urine leukocyte esterase det ection by dipstickOrdered By: Андрей Ng on 07-30-2023 Leukocyte esterase Test strip Ql (U) Negative Negative [facility] Urine pHOrdered By: Андрей garland on 07-30-2023 pH (U) 7.0 [pH] 5.0 - 8.0 [facility] Urine sediment bacteria coun t by microscopy (number/high power field)Ordered By: Андрей Ng on 07-30-2023 Bacteria LM.HPF (Urine sed) [#/Area] 0 /[HPF] None Seen [facility] Urine specific gravity measu rementOrdered By: Андрей Ng on 07-30-2023 Specific gravity (U) [Rel density] 1.010 1.002-1.030 [facility] Urine urobilinogen measureme ntOrdered By: Андрей Ng on 07-30-2023 Urobilinogen Ql (U) Normal mg/dl Normal [facility] Venous blood pH measurementO rdered By: ED PROVIDER on 07-30-2023 pH (BldV) 7.36 [pH] 7.32-7.42 [facility] Basophil percentageOrdered B y: Андрей Cooley on 07-27-2023 Basophil percentage 12.8 g/dL 13.0-16.5 [facility] Basophil percentage 103 mg/dL 74-106 [facility] Basophil percentage 141 mmol/L 136-145 [facility] Basophil percentage 3.7 mmol/L 3.5-5.1 [facility] Basophil percentage 110 mmol/L 98-107 [facility] Basophils (Bld) [#/Vol] 6.8 10*3/uL 4.4-11.0 [facility] Determination of erythrocyte mean corpuscular volume (MCV)Ordered By: Андрей Cooley on 07-27-2023 MCV (RBC) [Entitic vol] 98.5 fL 80-94 [facility] Erythrocyte distribution wid th ratioOrdered By: Андрей Cooley on 07-27-2023 Erythrocyte distribution width (RBC) [Ratio] 13.1 % 11.6-14.6 [facility] Erythrocyte distribution wid th standard deviationOrdered By: Андрей Cooley on 07-27-2023 Erythrocyte distribution width (RBC) [Entitic vol] 46.7 fL 35.1-43.9 [facility] Hematocrit Auto (Bld) [Volum e fraction]Ordered By: Андрей Cooley on 07-27-2023 Hematocrit (Bld) [Volume fraction] 38.9 % 40-54 [facility] No Panel InformationOrdered By: Андрей Cooley on 07-27-2023 32.4 pg 27.0-32.0 [facility] 32.9 g/dL 32-36 [facility] 246 K/mm3 150-450 [facility] 10.1 fl 6.2-12.0 [facility] 56 mL/min >60 [facility] 68 mL/min >60 [facility] 26.5 RATIO 10-20 [facility] 29.0 mmol/L 21.0-32.0 [facility] RBC Auto (Bld) [#/Vol]Ordere d By: Андрей Cooley on 07-27-2023 RBC (Bld) [#/Vol] 3.95 10*6/uL 4.6-6.2 [facility] Serum or plasma calcium luis urement (mass/volume)Ordered By: Андрей Cooley on 07-27-2023 Calcium [Mass/Vol] 9.5 mg/dL 8.5-10.1 [facility] Serum or plasma creatinine m easurement (mass/volume)Ordered By: Андрей Cooley on 07-27-2023 Creatinine [Mass/Vol] 1.32 mg/dL 0.70-1.[address] [facility] Serum or plasma urea nitroge n measurement (mass/volume)Ordered By: Андрей Cooley on 07-27-2023 Urea nitrogen [Mass/Vol] 35 mg/dL 7-18 [facility] Thin prep Papanicolaou smear with manual screeningOrdered By: Андрей Cooley on 07-27-2023 Thin prep Papanicolaou smear with manual screening 2 5-15 [facility] Absolute lymphocyte countOrd ered By: Андрей Cooley on 07-25-2023 Lymphocytes Auto (Unsp spec) [#/Vol] 1.22 10*3/uL 0.83-4.51 [facility] Automated lymphocyte count a s percentage of total leukocytesOrdered By: Андрей Cooley on 07-25-2023 Lymphocytes/100 WBC Auto (Unsp spec) 17.6 % 19-41 [facility] Basophil percentageOrdered B y: Андрей Cooley on 07-25-2023 Basophil percentage 14.3 g/dL 13.0-16.5 [facility] Basophil percentage 126 mg/dL 74-106 [facility] Basophil percentage 138 mmol/L 136-145 [facility] Basophil percentage 3.5 mmol/L 3.5-5.1 [facility] Basophil percentage 105 mmol/L 98-107 [facility] Basophils (Bld) [#/Vol] 6.9 10*3/uL 4.4-11.0 [facility] Basophils (Bld) [#/Vol] 4.9 10*3/uL 2.0-7.7 [facility] Basophils/100 WBC (Bld) 70.5 % 47-70 [facility] Basophils/100 WBC (Bld) 10.0 % 0-10 [facility] Basophils/100 WBC (Bld) 0.7 % 0-5 [facility] Basophils/100 WBC (Bld) 0.9 % 0-1 [facility] Determination of erythrocyte mean corpuscular volume (MCV)Ordered By: Андрей Cooley on 07-25-2023 MCV (RBC) [Entitic vol] 95.2 fL 80-94 [facility] Erythrocyte distribution wid th ratioOrdered By: Андрей Cooley on 07-25-2023 Erythrocyte distribution width (RBC) [Ratio] 12.7 % 11.6-14.6 [facility] Erythrocyte distribution wid th standard deviationOrdered By: Андрей Cooley on 07-25-2023 Erythrocyte distribution width (RBC) [Entitic vol] 44.9 fL 35.1-43.9 [facility] Hematocrit Auto (Bld) [Volum e fraction]Ordered By: Андрей Cooley on 07-25-2023 Hematocrit (Bld) [Volume fraction] 41.9 % 40-54 [facility] Immature granulocytes/100 WB C Auto (Bld)Ordered By: Андрей Cooley on 07-25-2023 Immature granulocytes/100 WBC (Bld) 0.300 % 0.0-0.9 [facility] No Panel InformationOrdered By: Андрей Cooley on 07-25-2023 32.5 pg 27.0-32.0 [facility] 34.1 g/dL 32-36 [facility] 245 K/mm3 150-450 [facility] 9.7 fl 6.2-12.0 [facility] 0 % 0-5 [facility] 62 mL/min >60 [facility] 75 mL/min >60 [facility] 39.28 ml/min [facility] 13.2 RATIO 10-20 [facility] 25.0 mmol/L 21.0-32.0 [facility] RBC Auto (Bld) [#/Vol]Ordere d By: Андрей Cooley on 07-25-2023 RBC (Bld) [#/Vol] 4.40 10*6/uL 4.6-6.2 [facility] Serum or plasma calcium luis urement (mass/volume)Ordered By: Андрей Cooley on 07-25-2023 Calcium [Mass/Vol] 9.3 mg/dL 8.5-10.1 [facility] Serum or plasma creatinine m easurement (mass/volume)Ordered By: Андрей Cooley on 07-25-2023 Creatinine [Mass/Vol] 1.21 mg/dL 0.70-1.[address] [facility] Serum or plasma urea nitroge n measurement (mass/volume)Ordered By: Андрей Cooley on 07-25-2023 Urea nitrogen [Mass/Vol] 16 mg/dL 7-18 [facility] Thin prep Papanicolaou smear with manual screeningOrdered By: Андрей Cooley on 07-25-2023 Thin prep Papanicolaou smear with manual screening 8 5-15 [facility] Absolute lymphocyte countOrd ered By: Raul Melchor on 07-24-2023 Lymphocytes Auto (Unsp spec) [#/Vol] 1.14 10*3/uL 0.83-4.51 [facility] Automated lymphocyte count a s percentage of total leukocytesOrdered By: Raul Melchor on 07-24-2023 Lymphocytes/100 WBC Auto (Unsp spec) 16.0 % 19-41 [facility] Basophil percentageOrdered B y: Raul Melchor on 07-24-2023 Basophils/100 WBC (Bld) 1.0 % 0-1 [facility] Chloride [Moles/Vol] 103 mmol/L 98-107 [facility] Eosinophils/100 WBC (Bld) 1.1 % 0-5 [facility] Glucose [Mass/Vol] 134 mg/dL 74-106 [facility] Comment on above: Fasting Glucose resu lt greater than or equal to 126 mg/dL suggests DIABETES MELLITUS per A.D.A. criteria. Hemoglobin (Bld) [Mass/Vol] 16.2 g/dL 13.0-16.5 [facility] Monocytes/100 WBC (Bld) 7.3 % 0-10 [facility] Neutrophils (Bld) [#/Vol] 5.3 10*3/uL 2.0-7.7 [facility] Neutrophils/100 WBC (Bld) 74.0 % 47-70 [facility] Potassium [Moles/Vol] 3.8 mmol/L 3.5-5.[address] [facility] Comment on above: Moderate Hemolysis, Result may be falsely increased. Sodium [Moles/Vol] 139 mmol/L 136-145 [facility] WBC (Bld) [#/Vol] 7.1 10*3/uL 4.4-11.0 [facility] Determination of erythrocyte mean corpuscular volume (MCV)Ordered By: Raul Melchor on 07-24-2023 MCV (RBC) [Entitic vol] 94.8 fL 80-94 [facility] Erythrocyte distribution wid th ratioOrdered By: Raul Melchor on 07-24-2023 Erythrocyte distribution width (RBC) [Ratio] 12.8 % 11.6-14.6 [facility] Erythrocyte distribution wid th standard deviationOrdered By: Raul Melchor on 07-24-2023 Erythrocyte distribution width (RBC) [Entitic vol] 44.3 fL 35.1-43.9 [facility] Hematocrit Auto (Bld) [Volum e fraction]Ordered By: Raul Melchor on 07-24-2023 Hematocrit (Bld) [Volume fraction] 47.4 % 40-54 [facility] Immature granulocytes/100 WB C Auto (Bld)Ordered By: Raul Melchor on 07-24-2023 Immature granulocytes/100 WBC (Bld) 0.600 % 0.0-0.9 [facility] Comment on above: IG% - Immature Granu locytes (promyelocytes, myelocytes and metamyelocytes) > 1% indicates that a LEFT SHIFT is Present. Laboratory - Chemistry and C hemistry - challengeOrdered By: Raul Melchor on 07-24-2023 CO2 [Moles/Vol] 28.0 mmol/L 21.0-32.0 [facility] Urea nitrogen/Creatinine [Mass ratio] 14.1 mg/mg 10-20 [facility] Laboratory - Hematology and Cell countsOrdered By: Raul Melchor on 07-24-2023 MCH (RBC) [Entitic mass] 32.4 pg 27.0-32.0 [facility] MCHC (RBC) [Mass/Vol] 34.2 g/dL 32-[address] [facility] Nucleated RBC/100 WBC (Bld) [Ratio] 0 % 0-5 [facility] Platelets (Bld) [#/Vol] 285 10*3/uL 150-450 [facility] No Panel InformationOrdered By: Raul Melchor on 07-24-2023 Estimated Creatinine Clearance Calc 48.70 ml/min [facility] Estimated GFR (MDRD) Amer 71 mL/min >60 [facility] Comment on above: GFR Calc Estimated GFR (MDRD) Non-Af Amer 58 mL/min >60 [facility] Comment on above: Non- GFR Calc Platelet mean volume Ye-Ec ker (Bld) [Entitic vol]Ordered By: Raul Melchor on 07-24-2023 Platelet mean volume (Bld) [Entitic vol] 9.8 fL 6.2-12.0 [facility] RBC Auto (Bld) [#/Vol]Ordere d By: Raul Melchor on 07-24-2023 RBC (Bld) [#/Vol] 5.00 10*6/uL 4.6-6.2 [facility] Serum or plasma calcium luis urement (mass/volume)Ordered By: Raul Melchor on 07-24-2023 Calcium [Mass/Vol] 9.8 mg/dL 8.5-10.1 [facility] Serum or plasma creatinine m easurement (mass/volume)Ordered By: Raul Melchor on 07-24-2023 Creatinine [Mass/Vol] 1.28 mg/dL 0.70-1.[address] [facility] Comment on above: The validity of the calculated GFR & GFRAA in patients over 70 years has not been determined. Clinical correlation is essential. Serum or plasma urea nitroge n measurement (mass/volume)Ordered By: Raul Melchor on 07-24-2023 Urea nitrogen [Mass/Vol] 18 mg/dL 7-18 [facility] Thin prep Papanicolaou smear with manual screeningOrdered By: Raul Melchor on 07-24-2023 Thin prep Papanicolaou smear with manual screening 8 5-15 [facility] UAon 07-10-2023 Color (U) Yellow Normal [facility] ([place]) Comment on above: Performed By: #### U A #### [address] [address] Glucose (U) [Mass/Vol] Negative Normal Negative [facility] ([place]) Comment on above: Performed By: #### U A #### [address] [address] Ketones Ql (U) Negative Normal Neg-Trace [facility] ([place]) Comment on above: Performed By: #### U A #### [address] [address] UA Appear Clear Normal Clear [facility] ([place]) Comment on above: Performed By: #### U A #### [address] [address] UA Blood Negative Normal Neg-Trace [facility] ([place] Comment on above: Performed By: #### U A #### [place] [address] UA Leuk Est Negative Normal Negative [facility] ([place] Comment on above: Performed By: #### U A #### [place] [address] UA Nitrite Negative Normal Negative [facility] ([place] Comment on above: Performed By: #### U A #### [place] [address] UA pH 5.5 Normal 5.0 - 8.0 [facility] ([place]) Comment on above: Performed By: #### U A #### [place] [address] UA Protein 30 mg/dL Normal Negative [facility] ([place] Comment on above: Performed By: #### U A #### [place] [address] UA Spec Grav 1.020 Normal 1.006-1.029 [facility] ([place]) Comment on above: Performed By: #### U A #### [place] [address] UA Specimen Type Void Normal [facility] ([place]) Comment on above: Performed By: #### U A #### [place] [address] UA Urobilinogen 0.2 E.U./dL Normal 0.2-1.0 [facility] ([place]) Comment on above: Performed By: #### U A #### [place] [address] Urobilinogen (U) [Mass/Vol] Negative Normal Neg-Trace [facility] ([place]) Comment on above: Performed By: #### U A #### [facility] [address] [place] [id number] Absolute lymphocyte countOrd ered By: Daija Morton on 06-14-2023 Lymphocytes Auto (Unsp spec) [#/Vol] 1.09 10*3/uL 0.83-4.51 [facility] Basophil percentageOrdered B y: Daija Morton on 06-14-2023 Basophil percentage 108 mg/dL 74-106 [facility] Basophil percentage 139 mmol/L 136-145 [facility] Basophil percentage 4.2 mmol/L 3.5-5.1 [facility] Basophil percentage 104 mmol/L 98-107 [facility] Basophils (Bld) [#/Vol] 6.5 10*3/uL 4.4-11.0 [facility] Basophils (Bld) [#/Vol] 4.7 10*3/uL 2.0-7.7 [facility] Basophils/100 WBC (Bld) 1.4 % 0-1 [facility] Basophils/100 WBC (Bld) 72.2 % 47-70 [facility] Basophils/100 WBC (Bld) 2.0 % 0-5 [facility] Chloride [Moles/Vol] 104 mmol/L 98-107 [facility] WBC (Bld) 2.0 % 0-5 [facility] Glucose [Mass/Vol] 108 mg/dL 74-106 [facility] Comment on above: Fasting Glucose resu lt from 100 to 125 mg/dL suggests IMPAIRED HOMEOSTASIS per A.D.A. criteria. Neutrophils (Bld) [#/Vol] 4.7 10*3/uL 2.0-7.7 [facility] Neutrophils/100 WBC (Bld) 72.2 % 47-70 [facility] Potassium [Moles/Vol] 4.2 mmol/L 3.5-5.[address] [facility] Sodium [Moles/Vol] 139 mmol/L 136-145 [facility] WBC (Bld) [#/Vol] 6.5 10*3/uL 4.4-11.0 [facility] Blood erythrocytes count (nu mber/volume)Ordered By: Daija Morton on 06-14-2023 RBC (Bld) [#/Vol] 4.73 10*6/uL 4.6-6.2 [facility] Blood hemoglobin measurement (mass/volume)Ordered By: Daija Morton on 06-14-2023 Hemoglobin (Bld) [Mass/Vol] 15.8 g/dL 13.0-16.5 [facility] Blood lymphocytes/100 leukoc ytesOrdered By: Daija Morton on 06-14-2023 Lymphocytes/100 WBC (Bld) 16.8 % 19-41 [facility] Blood monocytes/100 leukocyt esOrdered By: Daija Morton on 06-14-2023 Monocytes/100 WBC (Bld) 7.1 % 0-10 [facility] Blood platelet mean volumeOr dered By: Daija Morton on 06-14-2023 Platelet mean volume (Bld) [Entitic vol] 9.9 fL 6.2-12.0 [facility] Determination of erythrocyte mean corpuscular volume (MCV)Ordered By: Daija Morton on 06-14-2023 MCV (RBC) [Entitic vol] 96.6 fL 80-94 [facility] Hematocrit Auto (Bld) [Volum e fraction]Ordered By: Daija Morton on 06-14-2023 Hematocrit (Bld) [Volume fraction] 45.7 % 40-54 [facility] Laboratory - Chemistry and C hemistry - challengeOrdered By: Daija Morton on 06-14-2023 CO2 [Moles/Vol] 30.0 mmol/L 21.0-32.0 [facility] Urea nitrogen/Creatinine [Mass ratio] 16.1 mg/mg 10-20 [facility] Laboratory - Hematology and Cell countsOrdered By: Daija Morton on 06-14-2023 Erythrocyte distribution width (RBC) [Entitic vol] 46.5 fL 35.1-43.9 [facility] Erythrocyte distribution width (RBC) [Ratio] 13.1 % 11.6-14.6 [facility] Immature granulocytes/100 WBC (Bld) 0.500 % 0.0-0.9 [facility] Comment on above: IG% - Immature Granu locytes (promyelocytes, myelocytes and metamyelocytes) > 1% indicates that a LEFT SHIFT is Present. MCH (RBC) [Entitic mass] 33.4 pg 27.0-32.0 [facility] Nucleated RBC/100 WBC (Bld) [Ratio] 0 % 0-5 [facility] MCHC Auto (RBC) [Mass/Vol]Or dered By: Daija Morton on 06-14-2023 MCHC (RBC) [Mass/Vol] 34.6 g/dL 32-[address] [facility] No Panel InformationOrdered By: Daija Morton on 06-14-2023 Estimated GFR (MDRD) Amer 73 mL/min >60 [facility] Comment on above: GFR Calc Estimated GFR (MDRD) Non-Af Amer 61 mL/min >60 [facility] Comment on above: Non- GFR Calc 33.4 pg 27.0-32.0 [facility] 13.1 % 11.6-14.6 [facility] 46.5 fl 35.1-43.9 [facility] 0.500 % 0.0-0.9 [facility] 0 % 0-5 [facility] 61 mL/min >60 [facility] 73 mL/min >60 [facility] 16.1 RATIO 10-20 [facility] 30.0 mmol/L 21.0-32.0 [facility] Platelets bldOrdered By: Nemesio Morton on 06-14-2023 Platelets (Bld) [#/Vol] 285 10*3/uL 150-450 [facility] Serum or plasma calcium luis urement (mass/volume)Ordered By: Daija Morton on 06-14-2023 Calcium [Mass/Vol] 9.8 mg/dL 8.5-10.1 [facility] Serum or plasma creatinine m easurement (mass/volume)Ordered By: Daija Morton on 06-14-2023 Creatinine [Mass/Vol] 1.24 mg/dL 0.70-1.[address] [facility] Comment on above: The validity of the calculated GFR & GFRAA in patients over 70 years has not been determined. Clinical correlation is essential. Serum or plasma urea nitroge n measurement (mass/volume)Ordered By: Daija Morton on 06-14-2023 Urea nitrogen [Mass/Vol] 20 mg/dL 7-18 [facility] Thin prep Papanicolaou smear with manual screeningOrdered By: Daija Morton on 06-14-2023 Thin prep Papanicolaou smear with manual screening 5 5-15 [facility] Basophil percentageOrdered B y: Андрей Cooley on 05-19-2023 Basophil percentage 100 mg/dL 74-106 [facility] Basophil percentage 6.5 g/dL 6.4-8.2 [facility] Basophil percentage 0.30 mg/dL 0.20-1.00 [facility] Basophil percentage 141 mmol/L 136-145 [facility] Basophil percentage 3.6 mmol/L 3.5-5.1 [facility] Basophil percentage 109 mmol/L 98-107 [facility] Basophils (Bld) [#/Vol] 6.2 10*3/uL 4.4-11.0 [facility] Bilirubin [Mass/Vol] 0.30 mg/dL 0.20-1.00 [facility] Comment on above: For patients on eltr ombopag therapy, use of Dimension [place] TBIL is not recommended. Chloride [Moles/Vol] 109 mmol/L 98-107 [facility] Glucose [Mass/Vol] 100 mg/dL 74-106 [facility] Comment on above: Fasting Glucose resu lt from 100 to 125 mg/dL suggests IMPAIRED HOMEOSTASIS per A.D.A. criteria. Potassium [Moles/Vol] 3.6 mmol/L 3.5-5.[address] [facility] Protein [Mass/Vol] 6.5 g/dL 6.4-8.2 [facility] Sodium [Moles/Vol] 141 mmol/L 136-145 [facility] WBC (Bld) [#/Vol] 6.2 10*3/uL 4.4-11.0 [facility] Blood erythrocytes count (nu mber/volume)Ordered By: Андрей Cooley on 05-19-2023 RBC (Bld) [#/Vol] 4.24 10*6/uL 4.6-6.2 [facility] Blood hemoglobin measurement (mass/volume)Ordered By: Андрей Cooley on 05-19-2023 Hemoglobin (Bld) [Mass/Vol] 13.8 g/dL 13.0-16.5 [facility] Blood platelet mean volumeOr dered By: Андрей Cooley on 05-19-2023 Platelet mean volume (Bld) [Entitic vol] 9.9 fL 6.2-12.0 [facility] Determination of erythrocyte mean corpuscular volume (MCV)Ordered By: Андрей Cooley on 05-19-2023 MCV (RBC) [Entitic vol] 99.5 fL 80-94 [facility] Hematocrit Auto (Bld) [Volum e fraction]Ordered By: Андрей Cooley on 05-19-2023 Hematocrit (Bld) [Volume fraction] 42.2 % 40-54 [facility] Laboratory - Chemistry and C hemistry - challengeOrdered By: Андрей Cooley on 05-19-2023 ALP [Catalytic activity/Vol] 72 U/L 45-117 [facility] ALT [Catalytic activity/Vol] 33 U/L 16-61 [facility] CO2 [Moles/Vol] 29.0 mmol/L 21.0-32.0 [facility] Globulin (S) [Mass/Vol] 3.1 g/dL 2.2-4.2 [facility] Urea nitrogen/Creatinine [Mass ratio] 18.6 mg/mg 10-20 [facility] Laboratory - Hematology and Cell countsOrdered By: Андрей Cooley on 05-19-2023 Erythrocyte distribution width (RBC) [Entitic vol] 52.4 fL 35.1-43.9 [facility] Erythrocyte distribution width (RBC) [Ratio] 14.3 % 11.6-14.6 [facility] MCH (RBC) [Entitic mass] 32.5 pg 27.0-32.0 [facility] MCHC Auto (RBC) [Mass/Vol]Or dered By: Андрей Cooley on 05-19-2023 MCHC (RBC) [Mass/Vol] 32.7 g/dL 32-[address] [facility] No Panel InformationOrdered By: Андрей Cooley on 05-19-2023 Estimated GFR (MDRD) Amer 78 mL/min >60 [facility] Comment on above: GFR Calc Estimated GFR (MDRD) Non-Af Amer 64 mL/min >60 [facility] Comment on above: Non- GFR Calc 32.5 pg 27.0-32.0 [facility] 14.3 % 11.6-14.6 [facility] 52.4 fl 35.1-43.9 [facility] 64 mL/min >60 [facility] 78 mL/min >60 [facility] 18.6 RATIO 10-20 [facility] 3.1 g/dL 2.2-4.2 [facility] 72 U/L 45-117 [facility] 33 U/L 16-61 [facility] 29.0 mmol/L 21.0-32.0 [facility] Platelets bldOrdered By: Italia Cooley on 05-19-2023 Platelets (Bld) [#/Vol] 284 10*3/uL 150-450 [facility] Serum or plasma albumin luis urement (mass/volume)Ordered By: Андрей Cooley on 05-19-2023 Albumin [Mass/Vol] 3.4 g/dL 3.2-5.0 [facility] Serum or plasma albumin/glob ulin mass ratioOrdered By: Андрей Cooley on 05-19-2023 Albumin/Globulin [Mass ratio] 1.1 {ratio} 0.9-2.4 [facility] Serum or plasma calcium luis urement (mass/volume)Ordered By: Андрей Cooley on 05-19-2023 Calcium [Mass/Vol] 8.7 mg/dL 8.5-10.1 [facility] Serum or plasma creatinine m easurement (mass/volume)Ordered By: Андрей Cooley on 05-19-2023 Creatinine [Mass/Vol] 1.18 mg/dL 0.70-1.[address] [facility] Comment on above: The validity of the calculated GFR & GFRAA in patients over 70 years has not been determined. Clinical correlation is essential. Serum or plasma urea nitroge n measurement (mass/volume)Ordered By: Андрей Cooley on 05-19-2023 Urea nitrogen [Mass/Vol] 22 mg/dL 7-18 [facility] Thin prep Papanicolaou smear with manual screeningOrdered By: Андрей Cooley on 05-19-2023 Thin prep Papanicolaou smear with manual screening 17 U/L 15-37 [facility] Thin prep Papanicolaou smear with manual screening 3 5-15 [facility] Basophil percentageOrdered B y: Андрей Coloey on 04-19-2023 Basophil percentage 92 mg/dL 74-106 [facility] Basophil percentage 6.8 g/dL 6.4-8.2 [facility] Basophil percentage 0.20 mg/dL 0.20-1.00 [facility] Basophil percentage 140 mmol/L 136-145 [facility] Basophil percentage 4.0 mmol/L 3.5-5.1 [facility] Basophil percentage 105 mmol/L 98-107 [facility] Basophils (Bld) [#/Vol] 6.2 10*3/uL 4.4-11.0 [facility] Bilirubin [Mass/Vol] 0.20 mg/dL 0.20-1.00 [facility] Comment on above: For patients on eltr ombopag therapy, use of Dimension [place] TBIL is not recommended. Chloride [Moles/Vol] 105 mmol/L 98-107 [facility] Glucose [Mass/Vol] 92 mg/dL 74-106 [facility] Potassium [Moles/Vol] 4.0 mmol/L 3.5-5.[address] [facility] Protein [Mass/Vol] 6.8 g/dL 6.4-8.2 [facility] Sodium [Moles/Vol] 140 mmol/L 136-145 [facility] WBC (Bld) [#/Vol] 6.2 10*3/uL 4.4-11.0 [facility] Blood erythrocytes count (nu mber/volume)Ordered By: Андрей Cooley on 04-19-2023 RBC (Bld) [#/Vol] 4.26 10*6/uL 4.6-6.2 [facility] Blood hemoglobin measurement (mass/volume)Ordered By: Андрей Cooley on 04-19-2023 Hemoglobin (Bld) [Mass/Vol] 13.6 g/dL 13.0-16.5 [facility] Blood platelet mean volumeOr dered By: Андрей Cooley on 04-19-2023 Platelet mean volume (Bld) [Entitic vol] 9.7 fL 6.2-12.0 [facility] Determination of erythrocyte mean corpuscular volume (MCV)Ordered By: Андрей Cooley on 04-19-2023 MCV (RBC) [Entitic vol] 99.5 fL 80-94 [facility] Hematocrit Auto (Bld) [Volum e fraction]Ordered By: Андрей Cooley on 04-19-2023 Hematocrit (Bld) [Volume fraction] 42.4 % 40-54 [facility] Laboratory - Chemistry and C hemistry - challengeOrdered By: Андрей Cooley on 04-19-2023 ALP [Catalytic activity/Vol] 82 U/L 45-117 [facility] ALT [Catalytic activity/Vol] 27 U/L 16-61 [facility] CO2 [Moles/Vol] 29.0 mmol/L 21.0-32.0 [facility] Globulin (S) [Mass/Vol] 3.5 g/dL 2.2-4.2 [facility] Urea nitrogen/Creatinine [Mass ratio] 22.2 mg/mg 10-20 [facility] Laboratory - Hematology and Cell countsOrdered By: Андрей Cooley on 04-19-2023 Erythrocyte distribution width (RBC) [Entitic vol] 51.8 fL 35.1-43.9 [facility] Erythrocyte distribution width (RBC) [Ratio] 14.4 % 11.6-14.6 [facility] MCH (RBC) [Entitic mass] 31.9 pg 27.0-32.0 [facility] MCHC Auto (RBC) [Mass/Vol]Or dered By: Андрей Cooley on 04-19-2023 MCHC (RBC) [Mass/Vol] 32.1 g/dL 32-[address] [facility] No Panel InformationOrdered By: Андрей Cooley on 04-19-2023 Estimated GFR (MDRD) Amer 86 mL/min >60 [facility] Comment on above: GFR Calc Estimated GFR (MDRD) Non-Af Amer 71 mL/min >60 [facility] Comment on above: Non- GFR Calc 31.9 pg 27.0-32.0 [facility] 14.4 % 11.6-14.6 [facility] 51.8 fl 35.1-43.9 [facility] 71 mL/min >60 [facility] 86 mL/min >60 [facility] 22.2 RATIO 04-07 [facility] 3.5 g/dL 2.2-4.2 [facility] 82 U/L 45-117 [facility] 27 U/L 16-61 [facility] 29.0 mmol/L 21.0-32.0 [facility] Platelets bldOrdered By: Italia Cooley on 04-19-2023 Platelets (Bld) [#/Vol] 382 10*3/uL 150-450 [facility] Serum or plasma albumin luis urement (mass/volume)Ordered By: Андрей Cooley on 04-19-2023 Albumin [Mass/Vol] 3.3 g/dL 3.2-5.0 [facility] Serum or plasma albumin/glob ulin mass ratioOrdered By: Андрей Cooley on 04-19-2023 Albumin/Globulin [Mass ratio] 0.9 {ratio} 0.9-2.4 [facility] Serum or plasma calcium luis urement (mass/volume)Ordered By: Андрей Cooley on 04-19-2023 Calcium [Mass/Vol] 9.1 mg/dL 8.5-10.1 [facility] Serum or plasma creatinine m easurement (mass/volume)Ordered By: Андрей Cooley on 04-19-2023 Creatinine [Mass/Vol] 1.08 mg/dL 0.70-1.[address] [facility] Comment on above: The validity of the calculated GFR & GFRAA in patients over 70 years has not been determined. Clinical correlation is essential. Serum or plasma urea nitroge n measurement (mass/volume)Ordered By: Андрей Cooley on 04-19-2023 Urea nitrogen [Mass/Vol] 24 mg/dL 7-18 [facility] Thin prep Papanicolaou smear with manual screeningOrdered By: Андрей Cooley on 04-19-2023 Thin prep Papanicolaou smear with manual screening 19 U/L 15-37 [facility] Thin prep Papanicolaou smear with manual screening 6 5-15 [facility] Whole blood hemoglobin A1c/t otal hemoglobin ratio (mass fraction)Ordered By: Андрей Cooley on 04-17-2023 HbA1c (Bld) [Mass fraction] 5.2 % 3.8-5.6 [facility] Comment on above: Normal < 5.7 % Predi abetic 5.7 - 6.4 % Diabetic >or= 6.5 % Please note range changes. Basophil percentageOrdered B y: Андрей Cooley on 04-12-2023 Basophil percentage 92 mg/dL 74-106 [facility] Basophil percentage 6.4 g/dL 6.4-8.2 [facility] Basophil percentage 0.10 mg/dL 0.20-1.00 [facility] Basophil percentage 139 mmol/L 136-145 [facility] Basophil percentage 4.1 mmol/L 3.5-5.1 [facility] Basophil percentage 107 mmol/L 98-107 [facility] Basophils (Bld) [#/Vol] 7.8 10*3/uL 4.4-11.0 [facility] Bilirubin [Mass/Vol] 0.10 mg/dL 0.20-1.00 [facility] Comment on above: For patients on eltr ombopag therapy, use of Dimension [place] TBIL is not recommended. Chloride [Moles/Vol] 107 mmol/L 98-107 [facility] Glucose [Mass/Vol] 92 mg/dL 74-106 [facility] Potassium [Moles/Vol] 4.1 mmol/L 3.5-5.[address] [facility] Protein [Mass/Vol] 6.4 g/dL 6.4-8.2 [facility] Sodium [Moles/Vol] 139 mmol/L 136-145 [facility] WBC (Bld) [#/Vol] 7.8 10*3/uL 4.4-11.0 [facility] Blood erythrocytes count (nu mber/volume)Ordered By: Андрей Cooley on 04-12-2023 RBC (Bld) [#/Vol] 4.04 10*6/uL 4.6-6.2 [facility] Blood hemoglobin measurement (mass/volume)Ordered By: Андрей Cooley on 04-12-2023 Hemoglobin (Bld) [Mass/Vol] 13.2 g/dL 13.0-16.5 [facility] Blood platelet mean volumeOr dered By: Андрей Cooley on 04-12-2023 Platelet mean volume (Bld) [Entitic vol] 9.7 fL 6.2-12.0 [facility] Determination of erythrocyte mean corpuscular volume (MCV)Ordered By: Андрей Cooley on 04-12-2023 MCV (RBC) [Entitic vol] 97.5 fL 80-94 [facility] Hematocrit Auto (Bld) [Volum e fraction]Ordered By: Андрей Cooley on 04-12-2023 Hematocrit (Bld) [Volume fraction] 39.4 % 40-54 [facility] Laboratory - Chemistry and C hemistry - challengeOrdered By: Андрей Cooley on 04-12-2023 ALP [Catalytic activity/Vol] 88 U/L 45-117 [facility] ALT [Catalytic activity/Vol] 32 U/L 16-61 [facility] CO2 [Moles/Vol] 26.0 mmol/L 21.0-32.0 [facility] Globulin (S) [Mass/Vol] 3.4 g/dL 2.2-4.2 [facility] Urea nitrogen/Creatinine [Mass ratio] 20.2 mg/mg 10 [facility] Laboratory - Hematology and Cell countsOrdered By: Андрей Cooley on 04-12-2023 Erythrocyte distribution width (RBC) [Entitic vol] 49.3 fL 35.1-43.9 [facility] Erythrocyte distribution width (RBC) [Ratio] 13.8 % 11.6-14.6 [facility] MCH (RBC) [Entitic mass] 32.7 pg 27.0-32.0 [facility] MCHC Auto (RBC) [Mass/Vol]Or dered By: Андрей Cooley on 04-12-2023 MCHC (RBC) [Mass/Vol] 33.5 g/dL 32-[address] [facility] No Panel InformationOrdered By: Андрей Cooley on 04-12-2023 Estimated GFR (MDRD) Amer 77 mL/min >60 [facility] Comment on above: GFR Calc Estimated GFR (MDRD) Non-Af Amer 64 mL/min >60 [facility] Comment on above: Non- GFR Calc 32.7 pg 27.0-32.0 [facility] 13.8 % 11.6-14.6 [facility] 49.3 fl 35.1-43.9 [facility] 64 mL/min >60 [facility] 77 mL/min >60 [facility] 20.2 RATIO 10-20 [facility] 3.4 g/dL 2.2-4.2 [facility] 88 U/L 45-117 [facility] 32 U/L 16-61 [facility] 26.0 mmol/L 21.0-32.0 [facility] Platelets bldOrdered By: Italia Cooley on 04-12-2023 Platelets (Bld) [#/Vol] 385 10*3/uL 150-450 [facility] Serum or plasma albumin luis urement (mass/volume)Ordered By: Андрей Cooley on 04-12-2023 Albumin [Mass/Vol] 3.0 g/dL 3.2-5.0 [facility] Serum or plasma albumin/glob ulin mass ratioOrdered By: Андрей Cooley on 04-12-2023 Albumin/Globulin [Mass ratio] 0.9 {ratio} 0.9-2.4 [facility] Serum or plasma calcium luis urement (mass/volume)Ordered By: Андрей Cooley on 04-12-2023 Calcium [Mass/Vol] 8.7 mg/dL 8.5-10.1 [facility] Serum or plasma creatinine m easurement (mass/volume)Ordered By: Андрей Cooley on 04-12-2023 Creatinine [Mass/Vol] 1.19 mg/dL 0.70-1.[address] [facility] Comment on above: The validity of the calculated GFR & GFRAA in patients over 70 years has not been determined. Clinical correlation is essential. Serum or plasma urea nitroge n measurement (mass/volume)Ordered By: Андрей Cooley on 04-12-2023 Urea nitrogen [Mass/Vol] 24 mg/dL 7-18 [facility] Thin prep Papanicolaou smear with manual screeningOrdered By: Андрей Cooley on 04-12-2023 Thin prep Papanicolaou smear with manual screening 21 U/L 15-37 [facility] Thin prep Papanicolaou smear with manual screening 6 5-15 [facility] Basophil percentageOrdered B y: Андрей Cooley on 04-05-2023 Basophil percentage 105 mg/dL 74-106 [facility] Basophil percentage 6.7 g/dL 6.4-8.2 [facility] Basophil percentage 0.20 mg/dL 0.20-1.00 [facility] Basophil percentage 139 mmol/L 136-145 [facility] Basophil percentage 3.9 mmol/L 3.5-5.1 [facility] Basophil percentage 105 mmol/L 98-107 [facility] Basophils (Bld) [#/Vol] 5.8 10*3/uL 4.4-11.0 [facility] Bilirubin [Mass/Vol] 0.20 mg/dL 0.20-1.00 [facility] Comment on above: For patients on eltr ombopag therapy, use of Dimension [place] TBIL is not recommended. Chloride [Moles/Vol] 105 mmol/L 98-107 [facility] Glucose [Mass/Vol] 105 mg/dL 74-106 [facility] Comment on above: Fasting Glucose resu lt from 100 to 125 mg/dL suggests IMPAIRED HOMEOSTASIS per A.D.A. criteria. Potassium [Moles/Vol] 3.9 mmol/L 3.5-5.[address] [facility] Protein [Mass/Vol] 6.7 g/dL 6.4-8.2 [facility] Sodium [Moles/Vol] 139 mmol/L 136-145 [facility] WBC (Bld) [#/Vol] 5.8 10*3/uL 4.4-11.0 [facility] Blood erythrocytes count (nu mber/volume)Ordered By: Андрей Cooley on 04-05-2023 RBC (Bld) [#/Vol] 4.40 10*6/uL 4.6-6.2 [facility] Blood hemoglobin measurement (mass/volume)Ordered By: Андерй Cooley on 04-05-2023 Hemoglobin (Bld) [Mass/Vol] 13.9 g/dL 13.0-16.5 [facility] Blood platelet mean volumeOr dered By: Андрей Cooley on 04-05-2023 Platelet mean volume (Bld) [Entitic vol] 9.5 fL 6.2-12.0 [facility] Determination of erythrocyte mean corpuscular volume (MCV)Ordered By: Андрей Cooley on 04-05-2023 MCV (RBC) [Entitic vol] 96.8 fL 80-94 [facility] Hematocrit Auto (Bld) [Volum e fraction]Ordered By: Андрей Cooley on 04-05-2023 Hematocrit (Bld) [Volume fraction] 42.6 % 40-54 [facility] Laboratory - Chemistry and C hemistry - challengeOrdered By: Андрей Cooley on 04-05-2023 ALP [Catalytic activity/Vol] 60 U/L 45- [facility] ALT [Catalytic activity/Vol] 54 U/L [facility] CO2 [Moles/Vol] 28.0 mmol/L 21.0-32.0 [facility] Globulin (S) [Mass/Vol] 3.8 g/dL 2.2-4.2 [facility] Urea nitrogen/Creatinine [Mass ratio] 22.0 mg/mg 04-07 [facility] Laboratory - Hematology and Cell countsOrdered By: Андрей Cooley on 04-05-2023 Erythrocyte distribution width (RBC) [Entitic vol] 50.1 fL 35.1-43.9 [facility] Erythrocyte distribution width (RBC) [Ratio] 14.0 % 11.6-14.6 [facility] MCH (RBC) [Entitic mass] 31.6 pg 27.0-32.0 [facility] MCHC Auto (RBC) [Mass/Vol]Or dered By: Андрей Cooley on 04-05-2023 MCHC (RBC) [Mass/Vol] 32.6 g/dL 32-[address] [facility] No Panel InformationOrdered By: Андрей Cooley on 04-05-2023 Estimated GFR (MDRD) Amer 85 mL/min >60 [facility] Comment on above: GFR Calc Estimated GFR (MDRD) Non-Af Amer 70 mL/min >60 [facility] Comment on above: Non- GFR Calc 31.6 pg 27.0-32.0 [facility] 14.0 % 11.6-14.6 [facility] 50.1 fl 35.1-43.9 [facility] 70 mL/min >60 [facility] 85 mL/min >60 [facility] 22.0 RATIO 04-07 [facility] 3.8 g/dL 2.2-4.2 [facility] 60 U/L 45-117 [facility] 54 U/L [facility] 28.0 mmol/L 21.0-32.0 [facility] Platelets bldOrdered By: Italia Cooley on 04-05-2023 Platelets (Bld) [#/Vol] 399 10*3/uL 150-450 [facility] Serum or plasma albumin luis urement (mass/volume)Ordered By: Андрей Cooley on 04-05-2023 Albumin [Mass/Vol] 2.9 g/dL 3.2-5.0 [facility] Serum or plasma albumin/glob ulin mass ratioOrdered By: Андрей Cooley on 04-05-2023 Albumin/Globulin [Mass ratio] 0.8 {ratio} 0.9-2.4 [facility] Serum or plasma calcium luis urement (mass/volume)Ordered By: Андрей Cooley on 04-05-2023 Calcium [Mass/Vol] 9.3 mg/dL 8.5-10.1 [facility] Serum or plasma creatinine m easurement (mass/volume)Ordered By: Андрей Cooley on 04-05-2023 Creatinine [Mass/Vol] 1.09 mg/dL 0.70-1.[address] [facility] Comment on above: The validity of the calculated GFR & GFRAA in patients over 70 years has not been determined. Clinical correlation is essential. Serum or plasma urea nitroge n measurement (mass/volume)Ordered By: Андрей Cooley on 04-05-2023 Urea nitrogen [Mass/Vol] 24 mg/dL 7-18 [facility] Thin prep Papanicolaou smear with manual screeningOrdered By: Андрей Cooley on 04-05-2023 Thin prep Papanicolaou smear with manual screening 38 U/L 15-37 [facility] Thin prep Papanicolaou smear with manual screening 6 5-15 [facility] Absolute lymphocyte countOrd ered By: Frankie Galindo on 04-04-2023 Lymphocytes Auto (Unsp spec) [#/Vol] 1.49 10*3/uL 0.83-4.51 [facility] Basophil percentageOrdered B y: Frankie Galindo on 04-04-2023 Basophil percentage 101 mg/dL 74-106 [facility] Basophil percentage 136 mmol/L 136-145 [facility] Basophil percentage 3.9 mmol/L 3.5-5.1 [facility] Basophil percentage 103 mmol/L 98-107 [facility] Basophils (Bld) [#/Vol] 6.3 10*3/uL 4.4-11.0 [facility] Basophils (Bld) [#/Vol] 4.1 10*3/uL 2.0-7.7 [facility] Basophils/100 WBC (Bld) 1.1 % 0-1 [facility] Basophils/100 WBC (Bld) 64.4 % 47-70 [facility] Basophils/100 WBC (Bld) 3.3 % 0-5 [facility] Chloride [Moles/Vol] 103 mmol/L 98-107 [facility] Eosinophils/100 WBC (Bld) 3.3 % 0-5 [facility] Glucose [Mass/Vol] 101 mg/dL 74-106 [facility] Comment on above: Fasting Glucose resu lt from 100 to 125 mg/dL suggests IMPAIRED HOMEOSTASIS per A.D.A. criteria. Neutrophils (Bld) [#/Vol] 4.1 10*3/uL 2.0-7.7 [facility] Neutrophils/100 WBC (Bld) 64.4 % 47-70 [facility] Potassium [Moles/Vol] 3.9 mmol/L 3.5-5.[address] [facility] Sodium [Moles/Vol] 136 mmol/L 136-145 [facility] WBC (Bld) [#/Vol] 6.3 10*3/uL 4.4-11.0 [facility] Blood erythrocytes count (nu mber/volume)Ordered By: Frankie Galindo on 04-04-2023 RBC (Bld) [#/Vol] 4.82 10*6/uL 4.6-6.2 [facility] Blood hemoglobin measurement (mass/volume)Ordered By: Frankie Galindo on 04-04-2023 Hemoglobin (Bld) [Mass/Vol] 15.1 g/dL 13.0-16.5 [facility] Blood lymphocytes/100 leukoc ytesOrdered By: Frankie Galindo on 04-04-2023 Lymphocytes/100 WBC (Bld) 23.6 % 19-41 [facility] Blood monocytes/100 leukocyt esOrdered By: Frankie Galindo on 04-04-2023 Monocytes/100 WBC (Bld) 6.3 % 0-10 [facility] Blood platelet mean volumeOr dered By: Frankie Galindo on 04-04-2023 Platelet mean volume (Bld) [Entitic vol] 9.3 fL 6.2-12.0 [facility] Determination of erythrocyte mean corpuscular volume (MCV)Ordered By: Frankie Galindo on 04-04-2023 MCV (RBC) [Entitic vol] 96.7 fL 80-94 [facility] Hematocrit Auto (Bld) [Volum e fraction]Ordered By: Frankie Galindo on 04-04-2023 Hematocrit (Bld) [Volume fraction] 46.6 % 40-54 [facility] Laboratory - Chemistry and C hemistry - challengeOrdered By: Frankie Galindo on 04-04-2023 CO2 [Moles/Vol] 29.0 mmol/L 21.0-32.0 [facility] Urea nitrogen/Creatinine [Mass ratio] 20.3 mg/mg 10-20 [facility] Laboratory - Hematology and Cell countsOrdered By: Frankie Galindo on 04-04-2023 Erythrocyte distribution width (RBC) [Entitic vol] 48.9 fL 35.1-43.9 [facility] Erythrocyte distribution width (RBC) [Ratio] 13.6 % 11.6-14.6 [facility] Immature granulocytes/100 WBC (Bld) 1.300 % 0.0-0.9 [facility] Comment on above: IG% - Immature Granu locytes (promyelocytes, myelocytes and metamyelocytes) > 1% indicates that a LEFT SHIFT is Present. MCH (RBC) [Entitic mass] 31.3 pg 27.0-32.0 [facility] Nucleated RBC/100 WBC (Bld) [Ratio] 0 % 0-5 [facility] MCHC Auto (RBC) [Mass/Vol]Or dered By: Frankie Galindo on 04-04-2023 MCHC (RBC) [Mass/Vol] 32.4 g/dL 32-[address] [facility] No Panel InformationOrdered By: Frankie Galindo on 04-04-2023 Estimated Creatinine Clearance Calc 45.80 ml/min [facility] Estimated GFR (MDRD) Amer 71 mL/min >60 [facility] Comment on above: GFR Calc Estimated GFR (MDRD) Non-Af Amer 58 mL/min >60 [facility] Comment on above: Non- GFR Calc 31.3 pg 27.0-32.0 [facility] 13.6 % 11.6-14.6 [facility] 48.9 fl 35.1-43.9 [facility] 1.300 % 0.0-0.9 [facility] 0 % 0-5 [facility] 58 mL/min >60 [facility] 71 mL/min >60 [facility] 45.80 ml/min [facility] 20.3 RATIO 10-20 [facility] 29.0 mmol/L 21.0-32.0 [facility] Platelets bldOrdered By: Sebastien Galindo on 04-04-2023 Platelets (Bld) [#/Vol] 379 10*3/uL 150-450 [facility] Serum or plasma calcium luis urement (mass/volume)Ordered By: Frankie Galindo on 04-04-2023 Calcium [Mass/Vol] 9.7 mg/dL 8.5-10.1 [facility] Serum or plasma creatinine m easurement (mass/volume)Ordered By: Frankie Galindo on 04-04-2023 Creatinine [Mass/Vol] 1.28 mg/dL 0.70-1.[address] [facility] Comment on above: The validity of the calculated GFR & GFRAA in patients over 70 years has not been determined. Clinical correlation is essential. Serum or plasma urea nitroge n measurement (mass/volume)Ordered By: Frankie Galindo on 04-04-2023 Urea nitrogen [Mass/Vol] 26 mg/dL 7-18 [facility] Thin prep Papanicolaou smear with manual screeningOrdered By: Frankie Galindo on 04-04-2023 Thin prep Papanicolaou smear with manual screening 4 - [facility] Basophil percentageOrdered B y: Frankie Galindo on 04-02-2023 Basophil percentage 2.6 mg/dL 2.5-4.9 [facility] Laboratory - Chemistry and C hemistry - challengeOrdered By: Frankie Galindo on 04-02-2023 Magnesium [Mass/Vol] 2.0 mg/dL 1.6-2.6 [facility] No Panel InformationOrdered By: Frankie Galindo on 04-02-2023 2.0 mg/dL 1.6-2.6 [facility] Basophil percentageOrdered B y: Celia Toribio on 04-01-2023 Basophil percentage 6.5 g/dL 6.4-8.2 [facility] Basophil percentage 0.30 mg/dL 0.20-1.00 [facility] Bilirubin [Mass/Vol] 0.30 mg/dL 0.20-1.00 [facility] Comment on above: For patients on eltr ombopag therapy, use of Dimension [place] TBIL is not recommended. Protein [Mass/Vol] 6.5 g/dL 6.4-8.2 [facility] Laboratory - Chemistry and C hemistry - challengeOrdered By: Celia Toribio on 04-01-2023 ALP [Catalytic activity/Vol] 57 U/L [facility] ALT [Catalytic activity/Vol] 21 U/L [facility] Globulin (S) [Mass/Vol] 3.9 g/dL 2.2-4.2 [facility] No Panel InformationOrdered By: Celia Toribio on 04-01-2023 3.9 g/dL 2.2-4.2 [facility] 57 U/L [facility] 21 U/L [facility] Serum or plasma albumin luis urement (mass/volume)Ordered By: Celia Toribio on 04-01-2023 Albumin [Mass/Vol] 2.6 g/dL 3.2-5.0 [facility] Serum or plasma albumin/glob ulin mass ratioOrdered By: Celia Toribio on 04-01-2023 Albumin/Globulin [Mass ratio] 0.7 {ratio} 0.9-2.4 [facility] Thin prep Papanicolaou smear with manual screeningOrdered By: Celia Toribio on 04-01-2023 Thin prep Papanicolaou smear with manual screening 12 U/L 15 [facility] Absolute lymphocyte countOrd ered By: Huber Alvarado on 03-30-2023 Lymphocytes Auto (Unsp spec) [#/Vol] 0.93 10*3/uL 0.83-4.51 [facility] Bacteria identified Cx Nom ( U)Ordered By: Huber Alvarado on 03-30-2023 Culture, urine ESBL Escherichia coli [facility] Basophil percentageOrdered B y: Huber Alvarado on 03-30-2023 Basophil percentage 1.4 mmol/L 0.4-2.0 [facility] Lactate [Moles/Vol] 1.4 mmol/L 0.4-2.0 [facility] Basophil percentage 25-50 SEEN /hpf 0-5 [facility] Basophils/100 WBC (Bld) 0.7 % 0-1 [facility] Chloride [Moles/Vol] 99 mmol/L 98-107 [facility] Eosinophils/100 WBC (Bld) 0.0 % 0-5 [facility] Glucose [Mass/Vol] 104 mg/dL 74-106 [facility] Comment on above: Fasting Glucose resu lt from 100 to 125 mg/dL suggests IMPAIRED HOMEOSTASIS per A.D.A. criteria. Neutrophils (Bld) [#/Vol] 7.9 10*3/uL 2.0-7.7 [facility] Neutrophils/100 WBC (Bld) 79.2 % 47-70 [facility] Potassium [Moles/Vol] 4.0 mmol/L 3.5-5.[address] [facility] Sodium [Moles/Vol] 134 mmol/L 136-145 [facility] WBC (Bld) [#/Vol] 10.0 10*3/uL 4.4-11.0 [facility] Bilirubin Test strip Ql (U)O rdered By: Huber Alvarado on 03-30-2023 Bilirubin Ql (U) Negative Negative [facility] Blood erythrocytes count (nu mber/volume)Ordered By: Huber Alvarado on 03-30-2023 RBC (Bld) [#/Vol] 4.81 10*6/uL 4.6-6.2 [facility] Blood hemoglobin measurement (mass/volume)Ordered By: Huber Alvarado on 03-30-2023 Hemoglobin (Bld) [Mass/Vol] 15.4 g/dL 13.0-16.5 [facility] Blood lymphocytes/100 leukoc ytesOrdered By: Huber Alvarado on 03-30-2023 Lymphocytes/100 WBC (Bld) 9.3 % 19-41 [facility] Blood monocytes/100 leukocyt esOrdered By: Huber Alvarado on 03-30-2023 Monocytes/100 WBC (Bld) 10.5 % 0-10 [facility] Blood platelet mean volumeOr dered By: Huber Alvarado on 03-30-2023 Platelet mean volume (Bld) [Entitic vol] 9.8 fL 6.2-12.0 [facility] Culture, urineOrdered By: Baldo Chan on 03-30-2023 Bacteria identified Cx Nom (U) ESBL Escherichia coli [facility] Bacteria identified Cx Nom (U) ESBL Escherichia coli [facility] Determination of erythrocyte mean corpuscular volume (MCV)Ordered By: Huber Alvarado on 03-30-2023 MCV (RBC) [Entitic vol] 97.5 fL 80-94 [facility] Hematocrit Auto (Bld) [Volum e fraction]Ordered By: Huber Alvarado on 03-30-2023 Hematocrit (Bld) [Volume fraction] 46.9 % 40-54 [facility] Ketones Test strip Ql (U)Ord ered By: Huber Alvarado on 03-30-2023 Ketones Ql (U) Negative Negative [facility] Laboratory - Chemistry and C hemistry - challengeOrdered By: Huber Alvarado on 03-30-2023 CO2 [Moles/Vol] 31.0 mmol/L 21.0-32.0 [facility] Urea nitrogen/Creatinine [Mass ratio] 16.0 mg/mg 10-20 [facility] Laboratory - Hematology and Cell countsOrdered By: Huber Alvarado on 03-30-2023 Erythrocyte distribution width (RBC) [Entitic vol] 50.3 fL 35.1-43.9 [facility] Erythrocyte distribution width (RBC) [Ratio] 13.9 % 11.6-14.6 [facility] Immature granulocytes/100 WBC (Bld) 0.300 % 0.0-0.9 [facility] Comment on above: IG% - Immature Granu locytes (promyelocytes, myelocytes and metamyelocytes) > 1% indicates that a LEFT SHIFT is Present. MCH (RBC) [Entitic mass] 32.0 pg 27.0-32.0 [facility] Nucleated RBC/100 WBC (Bld) [Ratio] 0 % 0-5 [facility] Laboratory - Microbiology an d Antimicrobial susceptibilityOrdered By: Huber Alvarado on 03-30-2023 Bacteria identified Cx Nom (Bld) No growth in 5 days. [facility] MCHC Auto (RBC) [Mass/Vol]Or dered By: Huber Alvarado on 03-30-2023 MCHC (RBC) [Mass/Vol] 32.8 g/dL 32-[address] [facility] Mucus LM Ql (Urine sed)Order ed By: Huber Alvarado on 03-30-2023 Mucus Ql (Urine sed) 0 SEEN /hpf [facility] Nitrite Test strip Ql (U)Ord ered By: Huber Alvarado on 03-30-2023 Nitrite Ql (U) Negative Negative [facility] No Panel InformationOrdered By: Huber Alvarado on 03-30-2023 No growth in 5 days. [facility] Estimated GFR (MDRD) Amer 77 mL/min >60 [facility] Comment on above: GFR Calc Estimated GFR (MDRD) Non-Af Amer 64 mL/min >60 [facility] Comment on above: Non- GFR Calc Platelets bldOrdered By: Beck Alvarado on 03-30-2023 Platelets (Bld) [#/Vol] 276 10*3/uL 150-450 [facility] Protein Test strip Ql (U)Ord ered By: Huber Alvarado on 03-30-2023 Protein Ql (U) 100 mg/dl Negative [facility] Serum or plasma calcium luis urement (mass/volume)Ordered By: Huber Alvarado on 03-30-2023 Calcium [Mass/Vol] 9.8 mg/dL 8.5-10.1 [facility] Serum or plasma creatinine m easurement (mass/volume)Ordered By: Huber Alvarado on 03-30-2023 Creatinine [Mass/Vol] 1.19 mg/dL 0.70-1.[address] [facility] Comment on above: The validity of the calculated GFR & GFRAA in patients over 70 years has not been determined. Clinical correlation is essential. Serum or plasma urea nitroge n measurement (mass/volume)Ordered By: Huber Alvarado on 03-30-2023 Urea nitrogen [Mass/Vol] 19 mg/dL 7-18 [facility] Squamous epithelial cells de tection in urine sediment by light microscopyOrdered By: Huber Alvarado on 03-30-2023 Epithelial cells.squamous LM Ql (Urine sed) 0-5 SEEN /hpf 0-5 [facility] Thin prep Papanicolaou smear with manual screeningOrdered By: Huebr Alvarado on 03-30-2023 Thin prep Papanicolaou smear with manual screening 4 5-15 [facility] Urine blood detectionOrdered By: Huber Alvarado on 03-30-2023 RBC Ql (U) 50 /ul Negative [facility] RBC Ql (U) 0 SEEN /hpf 0-5 [facility] Urine clarityOrdered By: Beck Alvarado on 03-30-2023 Clarity (U) Sl. Cloudy Clear [facility] Urine color determinationOrd ered By: Huber Alvarado on 03-30-2023 Color (U) Yellow Yellow [facility] Urine glucose detectionOrder ed By: Huber Alvarado on 03-30-2023 Glucose Ql (U) Normal mg/dl Normal [facility] Urine leukocyte esterase det ection by dipstickOrdered By: Huber Alvarado on 03-30-2023 Leukocyte esterase Test strip Ql (U) 500 /ul Negative [facility] Urine pHOrdered By: Hbuer billingsley on 03-30-2023 pH (U) 6.0 [pH] 5.0 - 8.0 [facility] Urine sediment bacteria coun t by microscopy (number/high power field)Ordered By: Huber Alvarado on 03-30-2023 Bacteria LM.HPF (Urine sed) [#/Area] 3 /[HPF] None Seen [facility] Urine specific gravity measu rementOrdered By: Huber Alvarado on 03-30-2023 Specific gravity (U) [Rel density] 1.020 1.002-1.030 [facility] Urobilinogen Auto test strip Ql (U)Ordered By: Huber Alvarado on 03-30-2023 Urobilinogen Ql (U) Normal mg/dl Normal [facility] INR in Blood by Coagulation assayOrdered By: Jaden Jauregui on 02-18-2023 INR Coag (Bld) [Relative time] 0.9 {INR} [facility] Laboratory - CoagulationOrde red By: Jaden Jauregui on 02-18-2023 PT Coag (PPP) [Time] 12.4 s 11.7-14.[address] [facility] [address] ABD/PELVIS W/ IV CONTRAST ONLYon 10-23-2022 CT ABD/PELVIS W/ IV CONTRAST ONLY ORIGINAL EXAMINATION: CT OF THE ABDOMEN AND PELVIS WITH CONTRAST 10/22/2022 9:37 pm TECHNIQUE: CT of the abdomen and pelvis was performed with the administration of intravenous contrast. Multiplanar reformatted images are provided for review. Automated exposure control, iterative reconstruction, and/or weight based adjustment of the mA/kV was utilized to reduce the radiation dose to as low as reasonably achievable. COMPARISON: 01/25/2022. HISTORY: ORDERING SYSTEM PROVIDED HISTORY: Partial appendectomy. Reason for Exam: pain FINDINGS: Visualized lung bases are clear. Small hiatal hernia. Stable 1.1 cm hypodense lesion in the right hepatic lobe is unchanged. Again noted is a stable peripherally hyperdense versus enhancing structure with possible internal septations within the gallbladder fundus; correlate with ultrasound results. Spleen is unremarkable. Stable 1.1 cm cystic lesion at the head of pancreas. Unchanged right and left adrenal nodules measuring 2 cm and 3.4 cm respectively. Kidneys are symmetric in enhancement without hydronephrosis. Left kidney is atrophic. There are tiny nonobstructive bilateral renal calculi versus renal vascular calcifications. Urinary bladder is unremarkable. Prostate is mildly enlarged and contains dystrophic calcifications. Small bowel, colon are normal in caliber. Appendix is surgically absent. Mild colonic diverticulosis without diverticulitis. There is no definite bowel wall thickening, intraperitoneal free air or focal fluid collection. No abdominal or pelvic lymphadenopathy. Nonaneurysmal abdominal aorta. 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 Again seen is soft tissue induration/scarring around the common femoral vessels. No acute fracture or destructive osseous lesion. Sclerotic focus within the right iliac bone are stable and likely relate to bone islands. Multiple left rib deformities are new from 01/25/2022 study, although appears to be healing with callus formation. New areas of probable posttraumatic sclerosis of T11 vertebral body, which could be subacute to chronic. Remote L2, L3 compression deformity. Small fat containing right inguinal hernia. IMPRESSION: No acute intra-abdominal findings Bilateral common external iliac artery stent grafts. Age indeterminate occlusion of the left external iliac artery stent graft with distal reconstitution at superficial and deep femoral arteries. Additional findings as above. I have personally reviewed the images of this examination and agree with the resident's findings and interpretation. Interpreted by: Amaury Vargas Preliminary Report By: Belen Medrano Electronically signed By Amaury Vargas Dictated Date: 10/22/2022 9:40:49 PM Prelim Date: 10/22/2022 10:13:55 PM Sign Date: 10/22/2022 10:33:36 PM Ordering Provider: PRIYANKA Betts [facility] ([place]) .Auto Diffon 10-22-2022 Basophil, Absolute 0.1 10 3/mcL Normal 0.0-0.2 [facility] ([place]) Comment on above: Performed By: #### A DIFF, LIP, MDW, CMP, GFR, ANEU, CBC #### [address] [address] Basophils/100 WBC (Bld) 0.8 % Normal 0.0-2.5 [facility] ([place]) Comment on above: Performed By: #### A DIFF, LIP, MDW, CMP, GFR, ANEU, CBC #### [address] [address] Eosinophil, Absolute 0.0 10 3/mcL Normal 0.0-0.4 [facility] ([place]) Comment on above: Performed By: #### A DIFF, LIP, MDW, CMP, GFR, ANEU, CBC #### [address] [address] Eosinophils/100 WBC (Bld) 0.3 % Normal 0.0-7.0 [facility] ([place]) Comment on above: Performed By: #### A DIFF, LIP, MDW, CMP, GFR, ANEU, CBC #### [address] [address] Lymphocyte, Absolute 0.9 10 3/mcL Normal 0.8-3.9 [facility]) Comment on above: Performed By: #### A DIFF, LIP, MDW, CMP, GFR, ANEU, CBC #### [address] [address] Lymphocytes/100 WBC (Bld) 8.1 % Low 10.0-50.0 [facility] ([place]) Comment on above: Performed By: #### A DIFF, LIP, MDW, CMP, GFR, ANEU, CBC #### [address] [address] Monocyte, Absolute 0.7 10 3/mcL Normal 0.2-1.0 [facility] ([place]) Comment on above: Performed By: #### A DIFF, LIP, MDW, CMP, GFR, ANEU, CBC #### [address] [address] Monocytes/100 WBC (Bld) 6.8 % Normal 1.7-13.0 [facility] ([place]) Comment on above: Performed By: #### A DIFF, LIP, MDW, CMP, GFR, ANEU, CBC #### [address] [address] Neutrophils/100 WBC (Bld) 84.0 % High 37.0-80.0 [facility] ([place]) Comment on above: Performed By: #### A DIFF, LIP, MDW, CMP, GFR, ANEU, CBC #### [address] [address] .GFRon 10-22-2022 GFR Non- 58 ml/min/1.73sqm Normal [facility] ([place]) Comment on above: Result Comment: GFR Population mean for , [...] 15 mL/min/1.73 square meters Performed By: #### A DIFF, LIP, MDW, CMP, GFR, ANEU, CBC #### [address] [address] GFR 71 ml/min/1.73sqm Normal [facility] ([place]) Comment on above: Result Comment: GFR Population mean for , [...] 15 mL/min/1.73 square meters Performed By: #### A DIFF, LIP, MDW, CMP, GFR, ANEU, CBC #### [address] [address] .MDWon 10-22-2022 Monocyte Distribution Width 24.33 High 0.00-20.00 [facility] ([place]) Comment on above: Result Comment: For adults in ED, MDW>20.0 may be associated with a higher risk of sepsis during the first 12hrs of hospital admission Performed By: #### A DIFF, LIP, MDW, CMP, GFR, ANEU, CBC #### [address] [address] .NEUABSon 10-22-2022 Neutrophil, Absolute 8.9 10 3/mcL High 2.9-6.2 [facility] ([place]) Comment on above: Performed By: #### A DIFF, LIP, MDW, CMP, GFR, ANEU, CBC #### [address] [address] CBCon 10-22-2022 Erythrocyte distribution width (RBC) [Ratio] 14.0 % Normal 11.5-14.5 [facility] ([place]) Comment on above: Performed By: #### A DIFF, LIP, MDW, CMP, GFR, ANEU, CBC #### [address] [address] Hematocrit (Bld) [Volume fraction] 38.9 % Low 42.0-52.0 [facility] ([place]) Comment on above: Performed By: #### A DIFF, LIP, MDW, CMP, GFR, ANEU, CBC #### [address] [address] Hgb 13.5 G/dL Low 14.0-18.0 [facility] ([place]) Comment on above: Performed By: #### A DIFF, LIP, MDW, CMP, GFR, ANEU, CBC #### [place] [address] MCH (RBC) [Entitic mass] 33.0 pg High 27.0-31.2 [facility] ([place]) Comment on above: Performed By: #### A DIFF, LIP, MDW, CMP, GFR, ANEU, CBC #### [place] [address] MCHC 34.8 G/dL Normal 31.8-35.4 [facility] ([place]) Comment on above: Performed By: #### A DIFF, LIP, MDW, CMP, GFR, ANEU, CBC #### [place] [address] MCV (RBC) [Entitic vol] 95.0 fL High 80.0-94.0 [facility] ([place]) Comment on above: Performed By: #### A DIFF, LIP, MDW, CMP, GFR, ANEU, CBC #### [place] [address] Platelet 344 10 3/mcL Normal 130-400 [facility] ([place]) Comment on above: Performed By: #### A DIFF, LIP, MDW, CMP, GFR, ANEU, CBC #### [address] [address] Platelet mean volume (Bld) [Entitic vol] 7.1 fL Low 7.4-10.4 [facility] ([place]) Comment on above: Performed By: #### A DIFF, LIP, MDW, CMP, GFR, ANEU, CBC #### [address] [address] RBC 4.10 10 6/mcL Normal 4.04-6.13 [facility] ([place]) Comment on above: Performed By: #### A DIFF, LIP, MDW, CMP, GFR, ANEU, CBC #### [address] [address] WBC 10.6 10 3/mcL Normal 4.6-10.8 [facility] ([place]) Comment on above: Performed By: #### A DIFF, LIP, MDW, CMP, GFR, ANEU, CBC #### [address] [address] CMPon 10-22-2022 Albumin Level 2.9 G/dL Low 3.4-4.8 [facility] ([place]) Comment on above: Performed By: #### A DIFF, LIP, MDW, CMP, GFR, ANEU, CBC #### [address] [address] Albumin/Globulin [Mass ratio] 0.8 {ratio} Low 1.1-2.5 [facility] ([place]) Comment on above: Performed By: #### A DIFF, LIP, MDW, CMP, GFR, ANEU, CBC #### [address] [address] ALP [Catalytic activity/Vol] 98 U/L Normal 40-135 [facility] ([place]) Comment on above: Performed By: #### A DIFF, LIP, MDW, CMP, GFR, ANEU, CBC #### [address] [address] ALT [Catalytic activity/Vol] 46 U/L Normal 16-63 [facility] ([place]) Comment on above: Performed By: #### A DIFF, LIP, MDW, CMP, GFR, ANEU, CBC #### [address] [address] AST [Catalytic activity/Vol] 29 U/L Normal 10-40 [facility] ([place]) Comment on above: Performed By: #### A DIFF, LIP, MDW, CMP, GFR, ANEU, CBC #### [address] [address] Bili Total 0.3 mg/dL Normal 0.2-1.0 [facility] ([place]) Comment on above: Result Comment: Use of this assay is not recommended for patients undergoing treatment with eltrombopag due to the potential for falsely elevated results. Performed By: #### A DIFF, LIP, MDW, CMP, GFR, ANEU, CBC #### [address] [address] BUN/Creatinine Ratio 17 ratio Normal 7-27 [facility] ([place]) Comment on above: Performed By: #### A DIFF, LIP, MDW, CMP, GFR, ANEU, CBC #### [address] [address] Calcium [Mass/Vol] 9.2 mg/dL Normal 8.4-10.2 [facility] ([place]) Comment on above: Performed By: #### A DIFF, LIP, MDW, CMP, GFR, ANEU, CBC #### [address] [address] Chloride [Moles/Vol] 96 mmol/L Low 98-107 [facility] ([place]) Comment on above: Performed By: #### A DIFF, LIP, MDW, CMP, GFR, ANEU, CBC #### [address] [address] CO2 [Moles/Vol] 33 mmol/L High 23-31 [facility] ([place]) Comment on above: Performed By: #### A DIFF, LIP, MDW, CMP, GFR, ANEU, CBC #### [address] [address] Creatinine [Mass/Vol] 1.22 mg/dL Normal 0.70-1.30 [facility] ([place]) Comment on above: Performed By: #### A DIFF, LIP, MDW, CMP, GFR, ANEU, CBC #### [address] [address] Electrolyte Balance 5.0 mEq/L Normal 4.0-15.0 [facility] ([place]) Comment on above: Performed By: #### A DIFF, LIP, MDW, CMP, GFR, ANEU, CBC #### [address] [address] Globulin 3.5 G/dL Normal [facility] ([place]) Comment on above: Performed By: #### A DIFF, LIP, MDW, CMP, GFR, ANEU, CBC #### [address] [address] Glucose [Mass/Vol] 111 mg/dL High 83-110 [facility] ([place]) Comment on above: Performed By: #### A DIFF, LIP, MDW, CMP, GFR, ANEU, CBC #### [address] [address] Potassium [Moles/Vol] 4.3 mmol/L Normal 3.5-5.1 [facility] ([place]) Comment on above: Performed By: #### A DIFF, LIP, MDW, CMP, GFR, ANEU, CBC #### [address] [address] Sodium [Moles/Vol] 134 mmol/L Low 136-145 [facility] ([place]) Comment on above: Performed By: #### A DIFF, LIP, MDW, CMP, GFR, ANEU, CBC #### [address] [address] Total Protein 6.4 G/dL Normal 6.4-8.2 [facility] ([place]) Comment on above: Performed By: #### A DIFF, LIP, MDW, CMP, GFR, ANEU, CBC #### [address] [address] Urea nitrogen [Mass/Vol] 21 mg/dL High 7-18 [facility] ([place]) Comment on above: Performed By: #### A DIFF, LIP, MDW, CMP, GFR, ANEU, CBC #### [place] [address] [place], [place] [address] LABORATORYOrdered By: SYSTEM SYSTEM on 10-22-2022 Albumin BCP dye [Mass/Vol] 2.9 G/dL Invalid Interpretation Code 3.4 - 4.8 G/dL AO ADM SS Albumin/Globulin [Mass ratio] 0.8 {ratio} Invalid Interpretation Code 1.1 - 2.5 ratio AO ADM SS ALP [Catalytic activity/Vol] 98 U/L Invalid Interpretation Code 40 - 135 U/L AO ADM SS ALT With P-5'-P [Catalytic activity/Vol] 46 U/L Invalid Interpretation Code 16 - 63 U/L AO ADM SS AST With P-5'-P [Catalytic activity/Vol] 29 U/L Invalid Interpretation Code 10 - 40 U/L AO ADM SS Bilirubin [Mass/Vol] 0.3 mg/dL Invalid Interpretation Code 0.2 - 1.0 mg/dL AO ADM SS Calcium [Mass/Vol] 9.2 mg/dL Invalid Interpretation Code 8.4 - 10.2 mg/dL AO ADM SS Chloride [Moles/Vol] 96 mmol/L Invalid Interpretation Code 98 - 107 mmol/L AO ADM SS CO2 [Moles/Vol] 33 mmol/L Invalid Interpretation Code 23 - 31 mmol/L AO ADM SS Creatinine [Mass/Vol] 1.22 mg/dL Invalid Interpretation Code 0.70 - 1.30 mg/dL AO ADM SS Electrolyte Balance 5.0 mEq/L Invalid Interpretation Code 4.0 - 15.0 mEq/L AO ADM SS GFR/1.73 sq M.predicted among blacks MDRD (S/P/Bld) [Vol rate/Area] 71 ml/min/1.73sqm Invalid Interpretation Code AO Chemistry S GFR/1.73 sq M.predicted among non-blacks MDRD (S/P/Bld) [Vol rate/Area] 58 ml/min/1.73sqm Invalid Interpretation Code AO Chemistry S Globulin 3.5 G/dL Invalid Interpretation Code AO ADM SS Glucose [Mass/Vol] 111 mg/dL Invalid Interpretation Code 83 - 110 mg/dL AO ADM SS Lipase [Catalytic activity/Vol] 32 U/L Invalid Interpretation Code 16 - 77 U/L AO ADM SS Potassium [Moles/Vol] 4.3 mmol/L Invalid Interpretation Code 3.5 - 5.1 mmol/L AO ADM SS Protein [Mass/Vol] 6.4 G/dL Invalid Interpretation Code 6.4 - 8.2 G/dL AO ADM SS Sodium [Moles/Vol] 134 mmol/L Invalid Interpretation Code 136 - 145 mmol/L AO ADM SS Urea nitrogen [Mass/Vol] 21 mg/dL Invalid Interpretation Code 7 - 18 mg/dL AO ADM SS Urea nitrogen/Creatinine [Mass ratio] 17 ratio Invalid Interpretation Code 7 - 27 ratio AO ADM SS LABORATORYOrdered By: Ailyn Walker on 10-22-2022 Basophil, Absolute 0.1 103/mcL Invalid Interpretation Code 0.0 - 0.2 10^3/mcL AO Workflow SS Basophils/100 WBC (Bld) 0.8 % Invalid Interpretation Code 0.0 - 2.5 % AO Workflow SS Eosinophil, Absolute 0.0 103/mcL Invalid Interpretation Code 0.0 - 0.4 10^3/mcL AO Workflow SS Eosinophils/100 WBC (Bld) 0.3 % Invalid Interpretation Code 0.0 - 7.0 % AO Workflow SS Erythrocyte distribution width (RBC) [Ratio] 14.0 % Invalid Interpretation Code 11.5 - 14.5 % AO Workflow SS Hematocrit (Bld) [Volume fraction] 38.9 % Invalid Interpretation Code 42.0 - 52.0 % AO Workflow SS Hemoglobin (Bld) [Mass/Vol] 13.5 G/dL Invalid Interpretation Code 14.0 - 18.0 G/dL AO Workflow SS Lymphocyte, Absolute 0.9 103/mcL Invalid Interpretation Code 0.8 - 3.9 10^3/mcL AO Workflow SS Lymphocytes/100 WBC (Bld) 8.1 % Invalid Interpretation Code 10.0 - 50.0 % AO Workflow SS MCH (RBC) [Entitic mass] 33.0 pg Invalid Interpretation Code 27.0 - 31.2 pg AO Workflow SS MCHC 34.8 G/dL Invalid Interpretation Code 31.8 - 35.4 G/dL AO Workflow SS MCV (RBC) [Entitic vol] 95.0 fL Invalid Interpretation Code 80.0 - 94.0 fL AO Workflow SS Monocyte distribution width Auto (Bld) [Entitic vol] 24.33 Invalid Interpretation Code 0.00 - 20.00 AO Workflow SS Comment on above: Result Comment: For adults in ED, MDW>20.0 may be associated with a higher risk of sepsis during the first 12hrs of hospital admission Monocyte, Absolute 0.7 103/mcL Invalid Interpretation Code 0.2 - 1.0 10^3/mcL AO Workflow SS Monocytes/100 WBC (Bld) 6.8 % Invalid Interpretation Code 1.7 - 13.0 % AO Workflow SS Neutrophil, Absolute 8.9 103/mcL Invalid Interpretation Code 2.9 - 6.2 10^3/mcL AO Workflow SS Neutrophils/100 WBC (Bld) 84.0 % Invalid Interpretation Code 37.0 - 80.0 % AO Workflow SS Platelet mean volume (Bld) [Entitic vol] 7.1 fL Invalid Interpretation Code 7.4 - 10.4 fL AO Workflow SS Platelets (Bld) [#/Vol] 344 103/mcL Invalid Interpretation Code 130 - 400 10^3/mcL AO Workflow SS RBC (Bld) [#/Vol] 4.10 106/mcL Invalid Interpretation Code 4.04 - 6.13 10^6/mcL AO Workflow SS WBC (Bld) [#/Vol] 10.6 103/mcL Invalid Interpretation Code 4.6 - 10.8 10^3/mcL AO Workflow SS LIPon 10-22-2022 Lipase Level 32 U/L Normal 16-77 [facility] ([place]) Comment on above: Performed By: #### A DIFF, LIP, MDW, CMP, GFR, ANEU, CBC #### [address] [address] Absolute lymphocyte countOrd ered By: Dr. Jauregui on 10-21-2022 Lymphocytes Auto (Unsp spec) [#/Vol] 0.85 10*3/uL 0.83-4.51 [facility] Basophil percentageOrdered B y: Dr. Jauregui on 10-21-2022 Basophil percentage 25-50 SEEN /hpf 0-5 [facility] Basophils/100 WBC (Bld) 0.6 % 0-1 [facility] Bilirubin [Mass/Vol] 0.30 mg/dL 0.20-1.00 [facility] Comment on above: For patients on eltr ombopag therapy, use of Dimension [place] TBIL is not recommended. Chloride [Moles/Vol] 99 mmol/L 98-107 [facility] Eosinophils/100 WBC (Bld) 0.4 % 0-5 [facility] Glucose [Mass/Vol] 104 mg/dL 74-106 [facility] Comment on above: Fasting Glucose resu lt from 100 to 125 mg/dL suggests IMPAIRED HOMEOSTASIS per A.D.A. criteria. Neutrophils (Bld) [#/Vol] 8.8 10*3/uL 2.0-7.7 [facility] Neutrophils/100 WBC (Bld) 84.2 % 47-70 [facility] Potassium [Moles/Vol] 3.6 mmol/L 3.5-5.[address] [facility] Protein [Mass/Vol] 7.2 g/dL 6.4-8.2 [facility] Sodium [Moles/Vol] 135 mmol/L 136-145 [facility] WBC (Bld) [#/Vol] 10.4 10*3/uL 4.4-11.0 [facility] Bilirubin Test strip Ql (U)O rdered By: Dr. Jauregui on 10-21-2022 Bilirubin Ql (U) Negative Negative [facility] Blood erythrocytes count (nu mber/volume)Ordered By: Dr. Jauregui on 10-21-2022 RBC (Bld) [#/Vol] 4.51 10*6/uL 4.6-6.2 [facility] Blood hemoglobin measurement (mass/volume)Ordered By: Dr. Jauregui on 10-21-2022 Hemoglobin (Bld) [Mass/Vol] 14.4 g/dL 13.0-16.5 [facility] Blood lymphocytes/100 leukoc ytesOrdered By: Dr. Jauregui on 10-21-2022 Lymphocytes/100 WBC (Bld) 8.2 % 19-41 [facility] Blood monocytes/100 leukocyt esOrdered By: Dr. Jauregui on 10-21-2022 Monocytes/100 WBC (Bld) 5.4 % 0-10 [facility] Blood platelet mean volumeOr dered By: Dr. Jauregui on 10-21-2022 Platelet mean volume (Bld) [Entitic vol] 8.9 fL 6.2-12.0 [facility] Culture, urineOrdered By: Joseph Jauregui on 10-21-2022 Bacteria identified Cx Nom (U) Presumptive E. coli [facility] Determination of erythrocyte mean corpuscular volume (MCV)Ordered By: Dr. Jauregui on 10-21-2022 MCV (RBC) [Entitic vol] 95.6 fL 80-94 [facility] Hematocrit Auto (Bld) [Volum e fraction]Ordered By: Dr. Jauregui on 10-21-2022 Hematocrit (Bld) [Volume fraction] 43.1 % 40-54 [facility] Ketones Test strip Ql (U)Ord ered By: Dr. Jauregui on 10-21-2022 Ketones Ql (U) Negative Negative [facility] Laboratory - Chemistry and C hemistry - challengeOrdered By: Dr. Jauregui on 10-21-2022 ALP [Catalytic activity/Vol] 84 U/L 45-117 [facility] ALT [Catalytic activity/Vol] 41 U/L 16-61 [facility] CO2 [Moles/Vol] 28.0 mmol/L 21.0-32.0 [facility] Globulin (S) [Mass/Vol] 4.2 g/dL 2.2-4.2 [facility] Lipase [Catalytic activity/Vol] 42 U/L 13-75 [facility] Comment on above: Please note:LIPASE r evised reference range effective 22. New Lipase methodology. Expected to produce lower values than the previous assay method. NEW Reference Range: 13 - 75 U/L Urea nitrogen/Creatinine [Mass ratio] 16.3 mg/mg 10-20 [facility] Laboratory - Hematology and Cell countsOrdered By: Dr. Jauregui on 10-21-2022 Erythrocyte distribution width (RBC) [Entitic vol] 45.7 fL 35.1-43.9 [facility] Erythrocyte distribution width (RBC) [Ratio] 13.0 % 11.6-14.6 [facility] Immature granulocytes/100 WBC (Bld) 1.200 % 0.0-0.9 [facility] Comment on above: IG% - Immature Granu locytes (promyelocytes, myelocytes and metamyelocytes) > 1% indicates that a LEFT SHIFT is Present. MCH (RBC) [Entitic mass] 31.9 pg 27.0-32.0 [facility] Nucleated RBC/100 WBC (Bld) [Ratio] 0 % 0-5 [facility] MCHC Auto (RBC) [Mass/Vol]Or dered By: Dr. Jauregui on 10-21-2022 MCHC (RBC) [Mass/Vol] 33.4 g/dL 32-[address] [facility] Mucus LM Ql (Urine sed)Order ed By: Dr. Jauregui on 10-21-2022 Mucus Ql (Urine sed) 0 SEEN /hpf [facility] Nitrite Test strip Ql (U)Ord ered By: Dr. Jauregui on 10-21-2022 Nitrite Ql (U) Negative Negative [facility] No Panel InformationOrdered By: Dr. Jauregui on 10-21-2022 Estimated GFR (MDRD) Amer 90 mL/min >60 [facility] Comment on above: GFR Calc Estimated GFR (MDRD) Non-Af Amer 74 mL/min >60 [facility] Comment on above: Non- GFR Calc Platelets bldOrdered By: Dr. Jauregui on 10-21-2022 Platelets (Bld) [#/Vol] 339 10*3/uL 150-450 [facility] Protein Test strip Ql (U)Ord ered By: Dr. Jauregui on 10-21-2022 Protein Ql (U) 100 mg/dl Negative [facility] Serum or plasma albumin luis urement (mass/volume)Ordered By: Dr. Jauregui on 10-21-2022 Albumin [Mass/Vol] 3.0 g/dL 3.2-5.0 [facility] Serum or plasma albumin/glob ulin mass ratioOrdered By: Dr. Jauregui on 10-21-2022 Albumin/Globulin [Mass ratio] 0.7 {ratio} 0.9-2.4 [facility] Serum or plasma calcium luis urement (mass/volume)Ordered By: Dr. Jauregui on 10-21-2022 Calcium [Mass/Vol] 9.8 mg/dL 8.5-10.1 [facility] Serum or plasma creatinine m easurement (mass/volume)Ordered By: Dr. Jauregui on 10-21-2022 Creatinine [Mass/Vol] 1.04 mg/dL 0.70-1.[address] [facility] Comment on above: The validity of the calculated GFR & GFRAA in patients over 70 years has not been determined. Clinical correlation is essential. Serum or plasma urea nitroge n measurement (mass/volume)Ordered By: Dr. Jauregui on 10-21-2022 Urea nitrogen [Mass/Vol] 17 mg/dL 7-18 [facility] Squamous epithelial cells de tection in urine sediment by light microscopyOrdered By: Dr. Jauregui on 10-21-2022 Epithelial cells.squamous LM Ql (Urine sed) 0-5 SEEN /hpf 0-5 [facility] Thin prep Papanicolaou smear with manual screeningOrdered By: Dr. Jauregui on 10-21-2022 Thin prep Papanicolaou smear with manual screening 20 U/L 15-37 [facility] Thin prep Papanicolaou smear with manual screening 8 5-15 [facility] Urine blood detectionOrdered By: Dr. Jauregui on 10-21-2022 RBC Ql (U) 50 /ul Negative [facility] RBC Ql (U) 0 SEEN /hpf 0-5 [facility] Urine clarityOrdered By: Dr. Jauregui on 10-21-2022 Clarity (U) Sl. Cloudy Clear [facility] Urine color determinationOrd ered By: Dr. Jauregui on 10-21-2022 Color (U) Yellow Yellow [facility] Urine glucose detectionOrder ed By: Dr. Jauregui on 10-21-2022 Glucose Ql (U) Normal mg/dl Normal [facility] Urine leukocyte esterase det ection by dipstickOrdered By: Dr. Jauregui on 10-21-2022 Leukocyte esterase Test strip Ql (U) 500 /ul Negative [facility] Urine pHOrdered By: Dr. Brice ne on 10-21-2022 pH (U) 6.0 [pH] 5.0 - 8.0 [facility] Urine sediment bacteria coun t by microscopy (number/high power field)Ordered By: Dr. Jauregui on 10-21-2022 Bacteria LM.HPF (Urine sed) [#/Area] 2 /[HPF] None Seen [facility] Urine specific gravity measu rementOrdered By: Dr. Jauregui on 10-21-2022 Specific gravity (U) [Rel density] 1.010 1.002-1.030 [facility] Urobilinogen Auto test strip Ql (U)Ordered By: Dr. Jauregui on 10-21-2022 Urobilinogen Ql (U) Normal mg/dl Normal [facility] No Panel InformationOrdered By: Андрей Cooley on 08-11-2022 Miscellaneous Test See comment [facility] Comment on above: TEST RESULT LIMITSCa rbamazepine(Tegretol), S 7.1 ug/mL 4.0-12.0 In conjunction with other antiepileptic drugs Therapeutic 4.0 - 8.0 Toxicity 9.0 - 12.0 Carbamazepine alone Therapeutic 8.0 - 12.0 Detection Limit = 2.0 <2.0 indicated None Detected Verified by repeat analysis TESTING PERFORMED AT [facility]. ORIGINAL REPORT ON FILE IN LAB CONTAINS ADDITIONAL TEST SITE INFORMATION. No Panel InformationOrdered By: Андрей Cooley on 07-12-2022 Miscellaneous Test See comment [facility] Comment on above: TEST RESULT LIMITSCarbamazepine(Tegretol),SCarbamazepine(Tegretol), S 6.3 ug/mL 4.0-12.0 In conjunction with other antiepileptic drugs Therapeutic 4.0 - 8.0 Toxicity 9.0 - 12.0 Carbamazepine alone Therapeutic 8.0 - 12.0 Detection Limit = 2.0 <2.0 indicated None Detected ____ TESTING PERFORMED AT [facility]. ORIGINAL REPORT ON FILE IN LAB CONTAINS ADDITIONAL TEST SITE INFORMATION. Basophil percentageOrdered B y: Андрей Cooley on 06-14-2022 Bilirubin [Mass/Vol] 0.20 mg/dL 0.20-1.00 [facility] Comment on above: For patients on eltr ombopag therapy, use of Dimension [place] TBIL is not recommended. Chloride [Moles/Vol] 104 mmol/L 98-107 [facility] Cholesterol [Mass/Vol] 139 mg/dL <200 [facility] Comment on above: <200 mg/dL Desirable 200-240 mg/dL Borderline >240 mg/dL High Risk Glucose [Mass/Vol] 76 mg/dL 74-106 [facility] Potassium [Moles/Vol] 3.9 mmol/L 3.5-5.[address] [facility] Protein [Mass/Vol] 6.4 g/dL 6.4-8.2 [facility] Sodium [Moles/Vol] 139 mmol/L 136-145 [facility] Triglyceride [Mass/Vol] 111 mg/dL <199 [facility] Comment on above: The drugs N-Acetylcy steine and Metamizole may falsely depress this assay.Serum Triglycerides Reference Interval Normal <150 mg/dL Borderline high 150 - 199 mg/dL High 200 - 499 mg/dL Very High > or = 500 mg/dL WBC (Bld) [#/Vol] 5.5 10*3/uL 4.4-11.0 [facility] Blood erythrocytes count (nu mber/volume)Ordered By: Андрей Cooley on 06-14-2022 RBC (Bld) [#/Vol] 4.57 10*6/uL 4.6-6.2 [facility] Blood hemoglobin measurement (mass/volume)Ordered By: Андрей Cooley on 06-14-2022 Hemoglobin (Bld) [Mass/Vol] 15.0 g/dL 13.0-16.5 [facility] Blood platelet mean volumeOr dered By: Андрей Cooley on 06-14-2022 Platelet mean volume (Bld) [Entitic vol] 10.0 fL 6.2-12.0 [facility] Determination of erythrocyte mean corpuscular volume (MCV)Ordered By: Андрей Cooley on 06-14-2022 MCV (RBC) [Entitic vol] 100.4 fL 80-94 [facility] Hematocrit Auto (Bld) [Volum e fraction]Ordered By: Андрей Cooley on 06-14-2022 Hematocrit (Bld) [Volume fraction] 45.9 % 40-54 [facility] Laboratory - Chemistry and C hemistry - challengeOrdered By: Андрей Cooley on 06-14-2022 ALP [Catalytic activity/Vol] 68 U/L 45-117 [facility] ALT [Catalytic activity/Vol] 31 U/L 16-61 [facility] CO2 [Moles/Vol] 31.0 mmol/L 21.0-32.0 [facility] Globulin (S) [Mass/Vol] 3.0 g/dL 2.2-4.2 [facility] Urea nitrogen/Creatinine [Mass ratio] 22.5 mg/mg 10-20 [facility] Laboratory - Hematology and Cell countsOrdered By: Андрей Cooley on 06-14-2022 Erythrocyte distribution width (RBC) [Entitic vol] 51.8 fL 35.1-43.9 [facility] Erythrocyte distribution width (RBC) [Ratio] 14.2 % 11.6-14.6 [facility] MCH (RBC) [Entitic mass] 32.8 pg 27.0-32.0 [facility] MCHC Auto (RBC) [Mass/Vol]Or dered By: Андрей Cooley on 06-14-2022 MCHC (RBC) [Mass/Vol] 32.7 g/dL 32-[address] [facility] No Panel InformationOrdered By: Андрей Cooley on 06-14-2022 Estimated GFR (MDRD) Amer 108 mL/min >60 [facility] Comment on above: GFR Calc Estimated GFR (MDRD) Non-Af Amer 89 mL/min >60 [facility] [facility] Comment on above: Non- GFR Calc Vitamin D 25-Hydroxy 40.8 ng/mL [facility] Comment on above: Vitamin D 25(OH) Sta tus Range Deficiency <20 ng/mL (50nmol/L) Insufficiency 20 - 30 ng/mL (50 - 75 nmol/L) Sufficiency 30 - 100 ng/mL (75 - 250 nmol/L) Toxicity >100 ng/mL (>250 nmol/L) Platelets bldOrdered By: Italia Cooley on 06-14-2022 Platelets (Bld) [#/Vol] 239 10*3/uL 150-450 [facility] Serum or plasma albumin luis urement (mass/volume)Ordered By: Андрей Cooley on 06-14-2022 Albumin [Mass/Vol] 3.4 g/dL 3.2-5.0 [facility] Serum or plasma albumin/glob ulin mass ratioOrdered By: Андрей Cooley on 06-14-2022 Albumin/Globulin [Mass ratio] 1.1 {ratio} 0.9-2.4 [facility] Serum or plasma calcium luis urement (mass/volume)Ordered By: Андрей Cooley on 06-14-2022 Calcium [Mass/Vol] 9.1 mg/dL 8.5-10.1 [facility] Serum or plasma cholesterol in HDL measurement (mass/volume)Ordered By: Андрей Cooley on 06-14-2022 Cholesterol in HDL [Mass/Vol] 65 mg/dL >40 [facility] Comment on above: The drugs N-Acetylcy steine and Metamizole may falsely depress this assay. Reference Range HDL <40 mg/dL Low HDL Cholesterol HDL >or= 60 mg/dL High HDL Cholesterol Serum or plasma cholesterol in VLDL measurement (mass/volume)Ordered By: Андрей Cooley on 06-14-2022 Cholesterol in VLDL [Mass/Vol] 22 mg/dL 5-40 [facility] Serum or plasma creatinine m easurement (mass/volume)Ordered By: Андрей Cooley on 06-14-2022 Creatinine [Mass/Vol] 0.89 mg/dL 0.70-1.[address] [facility] Comment on above: The validity of the calculated GFR & GFRAA in patients over 70 years has not been determined. Clinical correlation is essential. Serum or plasma low density lipoprotein (LDL) cholesterol measurement (mass/volume)Ordered By: Андрей Cooley on 06-14-2022 Cholesterol in LDL [Mass/Vol] 52 mg/dL 0-130 [facility] Serum or plasma urea nitroge n measurement (mass/volume)Ordered By: Андрей Cooley on 06-14-2022 Urea nitrogen [Mass/Vol] 20 mg/dL 7-18 [facility] Thin prep Papanicolaou smear with manual screeningOrdered By: Андрей Cooley on 06-14-2022 Thin prep Papanicolaou smear with manual screening 13 U/L 15-37 [facility] Thin prep Papanicolaou smear with manual screening 4 5-15 [facility] No Panel InformationOrdered By: Андрей Cooley on 05-13-2022 Miscellaneous Test See comment [facility] Comment on above: TEST RESULT LIMITSCa rbamazepine(Tegretol), S 6.2 ug/mL 4.0-12.0 In conjunction with other antiepileptic drugs Therapeutic 4.0 - 8.0 Toxicity 9.0 - 12.0 Carbamazepine alone Therapeutic 8.0 - 12.0 Detection Limit = 2.0 <2.0 indicated None Detected ____ [facility]. ORIGINAL REPORT ON FILE IN LAB CONTAINS ADDITIONAL TEST SITE INFORMATION. Absolute lymphocyte counton 03-15-2022 Lymphocytes Auto (Unsp spec) [#/Vol] 1.09 10*3/uL 0.83-4.51 [facility] Work Phone: Basophil percentageon 2021 Basophils/100 WBC (Bld) 0.7 % 0-1 [facility] Work Phone: Bilirubin [Mass/Vol] 0.30 mg/dL 0.20-1.00 [facility] Work Phone: Comment on above: For patients on eltr ombopag therapy, use of Dimension [place] TBIL is not recommended. Chloride [Moles/Vol] 96 mmol/L 98-107 [facility] Work Phone: [phone] Cholesterol [Mass/Vol] 137 mg/dL <200 [facility] Work Phone: Comment on above: <200 mg/dL Desirable 200-240 mg/dL Borderline >240 mg/dL High Risk Eosinophils/100 WBC (Bld) 1.0 % 0-5 [facility] Work Phone: Glucose [Mass/Vol] 84 mg/dL 74-106 [facility] Work Phone: [phone] Neutrophils (Bld) [#/Vol] 5.3 10*3/uL 2.0-7.7 [facility] Work Phone: [phone] Neutrophils/100 WBC (Bld) 74.4 % 47-70 [facility] Work Phone: [phone] Potassium [Moles/Vol] 3.5 mmol/L 3.5-5.[address] [facility] Work Phone: Comment on above: Slight Hemolysis, Re sult may be falsely increased. Protein [Mass/Vol] 7.2 g/dL 6.4-8.2 [facility] Work Phone: Sodium [Moles/Vol] 133 mmol/L 136-145 [facility] Work Phone: [phone] Triglyceride [Mass/Vol] 121 mg/dL <199 [facility] Work Phone: Comment on above: The drugs N-Acetylcy steine and Metamizole may falsely depress this assay.Serum Triglycerides Reference Interval Normal <150 mg/dL Borderline high 150 - 199 mg/dL High 200 - 499 mg/dL Very High > or = 500 mg/dL WBC (Bld) [#/Vol] 7.2 10*3/uL 4.4-11.0 [facility] Work Phone: [phone] Blood erythrocytes count (nu mber/volume)on 03-15-2022 RBC (Bld) [#/Vol] 5.31 10*6/uL 4.6-6.2 [facility] Work Phone: [phone] Blood hemoglobin measurement (mass/volume)on 03-15-2022 Hemoglobin (Bld) [Mass/Vol] 17.0 g/dL 13.0-16.5 [facility] Work Phone: Blood lymphocytes/100 leukoc yteson 03-15-2022 Lymphocytes/100 WBC (Bld) 15.2 % 19-41 [facility] Work Phone: Blood monocytes/100 leukocyt eson 03-15-2022 Monocytes/100 WBC (Bld) 7.9 % 0-10 [facility] Work Phone: Blood platelet mean volumeon 03-15-2022 Platelet mean volume (Bld) [Entitic vol] 9.8 fL 6.2-12.0 [facility] Work Phone: Determination of erythrocyte mean corpuscular volume (MCV)on 03-15-2022 MCV (RBC) [Entitic vol] 93.2 fL 80-94 [facility] Work Phone: Hematocrit Auto (Bld) [Volum e fraction]on 03-15-2022 Hematocrit (Bld) [Volume fraction] 49.5 % 40-54 [facility] Work Phone: [phone] INR in Blood by Coagulation assayon 03-15-2022 INR Coag (Bld) [Relative time] 0.9 {INR} [facility] Work Phone: Laboratory - Chemistry and C hemistry - challengeon 03-15-2022 ALP [Catalytic activity/Vol] 71 U/L 45-117 [facility] Work Phone: ALT [Catalytic activity/Vol] 41 U/L 16-61 [facility] Work Phone: CO2 [Moles/Vol] 28.0 mmol/L 21.0-32.0 [facility] Work Phone: Globulin (S) [Mass/Vol] 4.1 g/dL 2.2-4.2 [facility] Work Phone: Urea nitrogen/Creatinine [Mass ratio] 21.2 mg/mg 10-20 [facility] Work Phone: Laboratory - Coagulationon 0 03-15-2022 PT Coag (PPP) [Time] 11.8 s 11.7-14.9 [facility] Work Phone: [phone] Laboratory - Hematology and Cell countson 03-15-2022 Erythrocyte distribution width (RBC) [Entitic vol] 44.0 fL 35.1-43.9 [facility] Work Phone: [phone] Erythrocyte distribution width (RBC) [Ratio] 12.7 % 11.6-14.6 [facility] Work Phone: [phone] Immature granulocytes/100 WBC (Bld) 0.800 % 0.0-0.9 [facility] Work Phone: [phone] Comment on above: IG% - Immature Granu locytes (promyelocytes, myelocytes and metamyelocytes) > 1% indicates that a LEFT SHIFT is Present. MCH (RBC) [Entitic mass] 32.0 pg 27.0-32.0 [facility] Work Phone: [phone] Nucleated RBC/100 WBC (Bld) [Ratio] 0 % 0-5 [facility] Work Phone: [phone] MCHC Auto (RBC) [Mass/Vol]on 03-15-2022 MCHC (RBC) [Mass/Vol] 34.3 g/dL 32-[address] [facility] Work Phone: [phone] Panel Informationon 03-15 Carbamazepine (Tegretol) Level 7.3 ug/mL 4.0-12.0 [facility] Work Phone: [phone] Estimated GFR (MDRD) Amer 101 mL/min >60 [facility] Work Phone: [phone] Comment on above: GFR Calc Estimated GFR (MDRD) Non-Af Amer 84 mL/min >60 [facility] Work Phone: [phone] Comment on above: Non- GFR Calc Platelets bldon 03-15-2022 Platelets (Bld) [#/Vol] 327 10*3/uL 150-450 [facility] Work Phone: [phone] Serum or plasma albumin luis urement (mass/volume)on 03-15-2022 Albumin [Mass/Vol] 3.1 g/dL 3.2-5.0 [facility] Work Phone: Serum or plasma albumin/glob ulin mass ratioon 03-15-2022 Albumin/Globulin [Mass ratio] 0.8 {ratio} 0.9-2.4 [facility] Work Phone: Serum or plasma calcium luis urement (mass/volume)on 03-15-2022 Calcium [Mass/Vol] 9.1 mg/dL 8.5-10.1 [facility] Work Phone: Serum or plasma cholesterol in HDL measurement (mass/volume)on 03-15-2022 Cholesterol in HDL [Mass/Vol] 72 mg/dL >40 [facility] Work Phone: Comment on above: The drugs N-Acetylcy steine and Metamizole may falsely depress this assay. Reference Range HDL <40 mg/dL Low HDL Cholesterol HDL >or= 60 mg/dL High HDL Cholesterol Serum or plasma cholesterol in VLDL measurement (mass/volume)on 03-15-2022 Cholesterol in VLDL [Mass/Vol] 24 mg/dL 5-40 [facility] Work Phone: Serum or plasma creatinine m easurement (mass/volume)on 03-15-2022 Creatinine [Mass/Vol] 0.94 mg/dL 0.70-1.[address] [facility] Work Phone: Comment on above: The validity of the calculated GFR & GFRAA in patients over 70 years has not been determined. Clinical correlation is essential. Serum or plasma low density lipoprotein (LDL) cholesterol measurement (mass/volume)on 03-15-2022 Cholesterol in LDL [Mass/Vol] 41 mg/dL 0-130 [facility] Work Phone: Serum or plasma urea nitroge n measurement (mass/volume)on 03-15-2022 Urea nitrogen [Mass/Vol] 20 mg/dL 7-18 [facility] Work Phone: [phone] Thin prep Papanicolaou smear with manual screeningon 03-15-2022 Thin prep Papanicolaou smear with manual screening 54 U/L 15-37 [facility] Work Phone: Comment on above: Slight Hemolysis, Re sult may be falsely increased. Thin prep Papanicolaou smear with manual screening 9 5-15 [facility] Work Phone: Absolute lymphocyte counton 03-02-2022 Lymphocytes Auto (Unsp spec) [#/Vol] 1.54 10*3/uL 0.83-4.51 [facility] Work Phone: Basophil percentageon 2021 Basophils/100 WBC (Bld) 0.9 % 0-1 [facility] Work Phone: Bilirubin [Mass/Vol] 0.20 mg/dL 0.20-1.00 [facility] Work Phone: Comment on above: For patients on eltr ombopag therapy, use of Dimension [place] TBIL is not recommended. Chloride [Moles/Vol] 101 mmol/L 98-107 [facility] Work Phone: Eosinophils/100 WBC (Bld) 1.0 % 0-5 [facility] Work Phone: Glucose [Mass/Vol] 98 mg/dL 74-106 [facility] Work Phone: Neutrophils (Bld) [#/Vol] 4.6 10*3/uL 2.0-7.7 [facility] Work Phone: Neutrophils/100 WBC (Bld) 67.4 % 47-70 [facility] Work Phone: Potassium [Moles/Vol] 3.8 mmol/L 3.5-5.[address] [facility] Work Phone: Protein [Mass/Vol] 7.5 g/dL 6.4-8.2 [facility] Work Phone: Sodium [Moles/Vol] 138 mmol/L 136-145 [facility] Work Phone: WBC (Bld) [#/Vol] 6.8 10*3/uL 4.4-11.0 [facility] Work Phone: Blood erythrocytes count (nu mber/volume)on 03-02-2022 RBC (Bld) [#/Vol] 5.14 10*6/uL 4.6-6.2 [facility] Work Phone: Blood hemoglobin measurement (mass/volume)on 03-02-2022 Hemoglobin (Bld) [Mass/Vol] 16.3 g/dL 13.0-16.5 [facility] Work Phone: Blood lymphocytes/100 leukoc yteson 03-02-2022 Lymphocytes/100 WBC (Bld) 22.8 % 19-41 [facility] Work Phone: Blood monocytes/100 leukocyt eson 03-02-2022 Monocytes/100 WBC (Bld) 7.3 % 0-10 [facility] Work Phone: Blood platelet mean volumeon 03-02-2022 Platelet mean volume (Bld) [Entitic vol] 9.9 fL 6.2-12.0 [facility] Work Phone: Determination of erythrocyte mean corpuscular volume (MCV)on 03-02-2022 MCV (RBC) [Entitic vol] 94.9 fL 80-94 [facility] Work Phone: Hematocrit Auto (Bld) [Volum e fraction]on 03-02-2022 Hematocrit (Bld) [Volume fraction] 48.8 % 40-54 [facility] Work Phone: Laboratory - Chemistry and C hemistry - challengeon 03-02-2022 ALP [Catalytic activity/Vol] 67 U/L 45-117 [facility] Work Phone: ALT [Catalytic activity/Vol] 27 U/L 16-61 [facility] Work Phone: CO2 [Moles/Vol] 30.0 mmol/L 21.0-32.0 [facility] Work Phone: Globulin (S) [Mass/Vol] 3.7 g/dL 2.2-4.2 [facility] Work Phone: [phone] Lipase [Catalytic activity/Vol] 95 U/L 73-393 [facility] Work Phone: [phone] Urea nitrogen/Creatinine [Mass ratio] 14.8 mg/mg 10-20 [facility]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 Phone: [phone] Erythrocyte distribution width (RBC) [Ratio] 30.6 % 11.6-14.6 [facility] Work Phone: [phone] Immature granulocytes/100 WBC (Bld) 0.300 % 0.0-0.9 [facility] Work Phone: Comment on above: IG% - Immature Granu locytes (promyelocytes, myelocytes and metamyelocytes) > 1% indicates that a LEFT SHIFT is Present. MCH (RBC) [Entitic mass] 26.6 pg 27.0-32.0 [facility] Work Phone: [phone] Nucleated RBC/100 WBC (Bld) [Ratio] 0 % 0-5 [facility] Work Phone: [phone] MCHC Auto (RBC) [Mass/Vol]on 12-06-2021 MCHC (RBC) [Mass/Vol] 28.7 g/dL 32-[address] [facility] Work Phone: Macrocytes detectionon 12-06 Macrocytes Ql (Bld) 1+ [facility] Work Phone: [phone] No Panel Informationon 12-06 Estimated GFR (MDRD) Amer 89 mL/min >60 [facility] Work Phone: Comment on above: GFR Calc Estimated GFR (MDRD) Non-Af Amer 74 mL/min >60 [facility] Work Phone: Comment on above: Non- GFR Calc Ovalocyte detectionon 2021 Ovalocytes LM Ql (Bld) 2+ [facility] Work Phone: Platelets bldon 12-06-2021 Platelets (Bld) [#/Vol] 265 10*3/uL 150-450 [facility] Work Phone: Serum or plasma calcium luis urement (mass/volume)on 12-06-2021 Calcium [Mass/Vol] 8.9 mg/dL 8.5-10.1 [facility] Work Phone: Serum or plasma creatinine m easurement (mass/volume)on 12-06-2021 Creatinine [Mass/Vol] 1.05 mg/dL 0.70-1.[address] [facility] Work Phone: Comment on above: The validity of the calculated GFR & GFRAA in patients over 70 years has not been determined. Clinical correlation is essential. Serum or plasma urea nitroge n measurement (mass/volume)on 12-06-2021 Urea nitrogen [Mass/Vol] 18 mg/dL 7-18 [facility] Work Phone: Teardrop cell detectionon Dacrocytes LM Ql (Bld) 1+ [facility] Work Phone: Thin prep Papanicolaou smear with manual screeningon 12-06-2021 Thin prep Papanicolaou smear with manual screening 1+ [facility] Work Phone: Thin prep Papanicolaou smear with manual screening 7 5-15 [facility] Work Phone: Basophil percentageon 2021 Basophil percentage 0-5 SEEN /hpf 0-5 [facility] Work Phone: Bilirubin Test strip Ql (U)o n 12-04-2021 Bilirubin Ql (U) Negative Negative [facility] Work Phone: Ketones Test strip Ql (U)on 12-04-2021 Ketones Ql (U) Negative Negative [facility] Work Phone: Mucus LM Ql (Urine sed)on Mucus Ql (Urine sed) 0 SEEN /hpf [facility] Work Phone: Nitrite Test strip Ql (U)on 12-04-2021 Nitrite Ql (U) Negative Negative [facility] Work Phone: Protein Test strip Ql (U)on 12-04-2021 Protein Ql (U) Negative Negative [facility] Work Phone: Squamous epithelial cells de tection in urine sediment by light microscopyon 12-04-2021 Epithelial cells.squamous LM Ql (Urine sed) 0-5 SEEN /hpf 0-5 [facility] Work Phone: Urine blood detectionon 11-17 RBC Ql (U) 25 /ul Negative [facility] Work Phone: RBC Ql (U) 0 SEEN /hpf 0-5 [facility] Work Phone: Urine clarityon 12-04-2021 Clarity (U) Cloudy Clear [facility] Work Phone: Urine color determinationon 12-04-2021 Color (U) Yellow Yellow [facility] Work Phone: Urine glucose detectionon Glucose Ql (U) Normal mg/dl Normal [facility] Work Phone: Urine leukocyte esterase det ection by dipstickon 12-04-2021 Leukocyte esterase Test strip Ql (U) 500 /ul Negative [facility] Work Phone: Urine pHon 12-04-2021 pH (U) 6.0 [pH] 5.0 - 8.0 [facility] Work Phone: Urine sediment bacteria coun t by microscopy (number/high power field)on 12-04-2021 Bacteria LM.HPF (Urine sed) [#/Area] 4 /[HPF] None Seen [facility] Work Phone: Urine specific gravity measu rementon 12-04-2021 Specific gravity (U) [Rel density] 1.015 1.002-1.030 [facility] Work Phone: Urobilinogen Auto test strip Ql (U)on 12-04-2021 Urobilinogen Ql (U) Normal mg/dl Normal [facility] Work Phone: Basophil percentageon 2021 Chloride [Moles/Vol] 105 mmol/L 98-107 [facility] Work Phone: [phone] Glucose [Mass/Vol] 96 mg/dL 74-106 [facility] Work Phone: [phone] Potassium [Moles/Vol] 3.9 mmol/L 3.5-5.[address] [facility] Work Phone: [phone] Sodium [Moles/Vol] 138 mmol/L 136-145 [facility] Work Phone: [phone] WBC (Bld) [#/Vol] 7.5 10*3/uL 4.4-11.0 [facility] Work Phone: Blood erythrocytes count (nu mber/volume)on 12-01-2021 RBC (Bld) [#/Vol] 3.41 10*6/uL 4.6-6.2 [facility] Work Phone: [phone] Blood hemoglobin measurement (mass/volume)on 12-01-2021 Hemoglobin (Bld) [Mass/Vol] 8.3 g/dL 13.0-16.5 [facility] Work Phone: [phone] Blood platelet mean volumeon 12-01-2021 Platelet mean volume (Bld) [Entitic vol] 11.1 fL 6.2-12.0 [facility] Work Phone: [phone] Determination of erythrocyte mean corpuscular volume (MCV)on 12-01-2021 MCV (RBC) [Entitic vol] 86.2 fL 80-94 [facility] Work Phone: Hematocrit Auto (Bld) [Volum e fraction]on 12-01-2021 Hematocrit (Bld) [Volume fraction] 29.4 % 40-54 [facility] Work Phone: INR in Blood by Coagulation assayon 12-01-2021 INR Coag (Bld) [Relative time] 1.4 {INR} [facility] Work Phone: Laboratory - Chemistry and C hemistry - challengeon 12-01-2021 CO2 [Moles/Vol] 26.0 mmol/L 21.0-32.0 [facility] Work Phone: Urea nitrogen/Creatinine [Mass ratio] 14.6 mg/mg 10-20 [facility] Work Phone: Laboratory - Coagulationon 0 12-01-2021 PT Coag (PPP) [Time] 16.9 s 11.7-14.9 [facility] Work Phone: Laboratory - Hematology and Cell countson 12-01-2021 Erythrocyte distribution width (RBC) [Entitic vol] 68.4 fL 35.1-43.9 [facility] Work Phone: Erythrocyte distribution width (RBC) [Ratio] 26.7 % 11.6-14.6 [facility] Work Phone: [phone] MCH (RBC) [Entitic mass] 24.3 pg 27.0-32.0 [facility] Work Phone: MCHC Auto (RBC) [Mass/Vol]on 12-01-2021 MCHC (RBC) [Mass/Vol] 28.2 g/dL 32-[address] [facility] Work Phone: No Panel Informationon 12-01 Estimated GFR (MDRD) Amer 99 mL/min >60 [facility] Work Phone: Comment on above: GFR Calc Estimated GFR (MDRD) Non-Af Amer 82 mL/min >60 [facility] [facility] Work Phone: Comment on above: Non- GFR Calc Platelets bldon 12-01-2021 Platelets (Bld) [#/Vol] 307 10*3/uL 150-450 [facility] Work Phone: [phone] Serum or plasma calcium luis urement (mass/volume)on 12-01-2021 Calcium [Mass/Vol] 9.5 mg/dL 8.5-10.1 [facility] Work Phone: [phone] Serum or plasma creatinine m easurement (mass/volume)on 12-01-2021 Creatinine [Mass/Vol] 0.96 mg/dL 0.70-1.[address] [facility] Work Phone: [phone] Comment on above: The validity of the calculated GFR & GFRAA in patients over 70 years has not been determined. Clinical correlation is essential. Serum or plasma urea nitroge n measurement (mass/volume)on 12-01-2021 Urea nitrogen [Mass/Vol] 14 mg/dL 7-18 [facility] Work Phone: [phone] Thin prep Papanicolaou smear with manual screeningon 12-01-2021 Thin prep Papanicolaou smear with manual screening 7 -15 [facility] Work Phone: [phone] Absolute lymphocyte counton 11-30-2021 Lymphocytes Auto (Unsp spec) [#/Vol] 1.13 10*3/uL 0.83-4.51 [facility] Work Phone: [phone] Basophil percentageon 2021 Basophil percentage 3.4 mg[facility]dL 2.5-4.9 [facility]: Basophils/100 WBC (Bld) 1.5 % 0-1 [facility] Work Phone: Chloride [Moles/Vol] 107 mmol/L 98-107 [facility] Work Phone: Eosinophils/100 WBC (Bld) 3.5 % 0-5 [facility] Work Phone: Glucose [Mass/Vol] 90 mg/dL 74-106 [facility] Work Phone: Neutrophils (Bld) [#/Vol] 6.9 10*3/uL 2.0-7.7 [facility] Work Phone: Neutrophils/100 WBC (Bld) 74.4 % 47-70 [facility] Work Phone: Potassium [Moles/Vol] 3.4 mmol/L 3.5-5.1 [facility]: Sodium [Moles/Vol] 140 mmol/L 136-145 [facility]: WBC (Bld) [#/Vol] 9.3 10*3/uL 4.4-11.0 [facility] Work Phone: Blood erythrocytes count (nu mber/volume)on 11-30-2021 RBC (Bld) [#/Vol] 3.21 10*6/uL 4.6-6.2 [facility]: Blood hemoglobin measurement (mass/volume)on 11-30-2021 Hemoglobin (Bld) [Mass/Vol] 7.8 g/dL 13.0-16.5 [facility] Work Phone: Blood lymphocytes/100 leukoc yteson 11-30-2021 Lymphocytes/100 WBC (Bld) 12.2 % 19-41 [facility] Work Phone: Blood monocytes/100 leukocyt eson 11-30-2021 Monocytes/100 WBC (Bld) 7.0 % 0-10 [facility] Work Phone: Blood platelet mean volumeon 11-30-2021 Platelet mean volume (Bld) [Entitic vol] 10.8 fL 6.2-12.0 [facility] Work Phone: Blood polychromasia detectio n by light microscopyon 11-30-2021 Polychromasia LM Ql (Bld) 2+ [facility] Work Phone: Determination of erythrocyte mean corpuscular volume (MCV)on 11-30-2021 MCV (RBC) [Entitic vol] 83.8 fL 80-94 [facility] Work Phone: Hematocrit Auto (Bld) [Volum e fraction]on 11-30-2021 Hematocrit (Bld) [Volume fraction] 26.9 % 40-54 [facility] Work Phone: INR in Blood by Coagulation assayon 11-30-2021 INR Coag (Bld) [Relative time] 1.4 {INR} [facility] Work Phone: [phone] Laboratory - Chemistry and C hemistry - challengeon 11-30-2021 CO2 [Moles/Vol] 26.0 mmol/L 21.0-32.0 [facility] Work Phone: [phone] Urea nitrogen/Creatinine [Mass ratio] 12.0 mg/mg 10-20 [facility] Work Phone: [phone] Laboratory - Coagulationon 0 11-30-2021 PT Coag (PPP) [Time] 17.1 s 11.7-14.9 [facility] Work Phone: [phone] Laboratory - Hematology and Cell countson 11-30-2021 Anisocytosis Ql (Bld) 2+ [facility] Work Phone: [phone] Erythrocyte distribution width (RBC) [Entitic vol] 64.9 fL 35.1-43.9 [facility] Work Phone: [phone] Erythrocyte distribution width (RBC) [Ratio] 24.2 % 11.6-14.6 [facility] Work Phone: [phone] Immature granulocytes/100 WBC (Bld) 1.400 % 0.0-0.9 [facility] Work Phone: [phone] Comment on above: IG% - Immature Granu locytes (promyelocytes, myelocytes and metamyelocytes) > 1% indicates that a LEFT SHIFT is Present. MCH (RBC) [Entitic mass] 24.3 pg 27.0-32.0 [facility] Work Phone: Nucleated RBC/100 WBC (Bld) [Ratio] 2.7 % 0-5 [facility] Work Phone: [phone] MCHC Auto (RBC) [Mass/Vol]on 11-30-2021 MCHC (RBC) [Mass/Vol] 29.0 g/dL 32-[address] [facility] Work Phone: No Panel Informationon 11-30 Estimated Creatinine Clearance Calc 70.99 ml/min [facility] Work Phone: Estimated GFR (MDRD) Amer 105 mL/min >60 [facility] Work Phone: [phone] Comment on above: GFR Calc Estimated GFR (MDRD) Non-Af Amer 87 mL/min >60 [facility] Work Phone: Comment on above: Non- GFR Calc Anti-Gliadin IgA Antibody 3 units 0-19 [facility] Work Phone: Comment on above: Negative 0 - 19 Weak Positive 20 - 30 Moderate to Strong Positive >30 Anti-Gliadin IgG Antibody 1 units 0-19 [facility] Work Phone: Comment on above: Negative 0 - 19 Weak Positive 20 - 30 Moderate to Strong Positive >30 Endomysial IgA Antibody Negative Negative [facility] Work Phone: Tissue Transglutaminase IgG Ab <2 U/mL 0-5 [facility] Work Phone: Comment on above: Negative 0 - 5 Weak Positive 6 - 9 Positive >9 Platelets bldon 11-30-2021 Platelets (Bld) [#/Vol] 305 10*3/uL 150-450 [facility] Work Phone: [phone] Serum IgA measurement (units /volume)on 11-30-2021 IgA Qn (S) 128 mg/dL 61-437 [facility] Work Phone: [phone] Comment on above: Performed at: [address] [id number] Director: Дмитрий Tran PhD, Phone: [phone] Serum or plasma calcium luis urement (mass/volume)on 11-30-2021 Calcium [Mass/Vol] 8.9 mg/dL 8.5-10.1 [facility] Work Phone: Serum or plasma creatinine m easurement (mass/volume)on 11-30-2021 Creatinine [Mass/Vol] 0.91 mg/dL 0.70-1.[address] [facility] Work Phone: Comment on above: The validity of the calculated GFR & GFRAA in patients over 70 years has not been determined. Clinical correlation is essential. Serum or plasma urea nitroge n measurement (mass/volume)on 11-30-2021 Urea nitrogen [Mass/Vol] 11 mg/dL 7-18 [facility] Work Phone: Serum tissue transglutaminas e IgA antibody assay (units/volume)on 11-30-2021 tTG IgA Qn (S) <2 U/mL 0-3 [facility] Work Phone: Comment on above: Negative 0 - 3 Weak Positive 4 - 10 Positive >10 Tissue Transglutaminase (tTG) has been identified as the endomysial antigen. Studies have demonstr- ated that endomysial IgA antibodies have over 99% specificity for gluten sensitive enteropathy. Thin prep Papanicolaou smear with manual screeningon 11-30-2021 Thin prep Papanicolaou smear with manual screening 7 5-15 [facility] Work Phone: Blood platelet adequacy dete ction by light microscopyon 11-29-2021 Platelets LM Ql (Bld) ADEQUATE ADEQ [facility] Work Phone: Hypochromatic red blood cell detectionon 11-29-2021 Hypochromia Ql (Bld) 1+ [facility] Work Phone: Serum or plasma ferritin arlyn surement (mass/volume)on 11-29-2021 Ferritin [Mass/Vol] 157 ng/mL 26-388 [facility] Work Phone: Blood manual differential co mment interpretation (narrative result)on 11-28-2021 Manual differential comment Ghassan (Bld) [Interp] SCANNED [facility] Work Phone: Laboratory - Chemistry and C hemistry - challengeon 11-28-2021 Magnesium [Mass/Vol] 2.0 mg/dL 1.6-2.6 [facility] Work Phone: Macrocytes detectionon 11-28 Macrocytes Ql (Bld) RARE [facility] Work Phone: Ovalocyte detectionon 2021 Ovalocytes LM Ql (Bld) 1+ [facility] Work Phone: Thin prep Papanicolaou smear with manual screeningon 11-28-2021 Thin prep Papanicolaou smear with manual screening 1+ [facility] Work Phone: Laboratory - Chemistry and C hemistry - challengeon 11-26-2021 Cobalamin (Vitamin B12) [Mass/Vol] 403 pg/mL 211-911 [facility] Work Phone: No Panel Informationon 11-26 Troponin I High Sensitivity 13 pg/mL 3.0-78.0 [facility] Work Phone: Comment on above: Please Note: New [place] t Units and Gender Specific Reference Ranges. For more information see Policy Stat Procedure [place] High Sensitivity Troponin (TNIH) and attachments. Absolute lymphocyte counton 11-25-2021 Lymphocytes Auto (Unsp spec) [#/Vol] 0.81 10*3/uL 0.83-4.51 [facility] Work Phone: Basophil percentageon 2021 Basophil percentage 0 SEEN /hpf 0-5 [facility] Work Phone: Basophils/100 WBC (Bld) 0.7 % 0-1 [facility] Work Phone: Eosinophils/100 WBC (Bld) 0.1 % 0-5 [facility] Work Phone: Neutrophils (Bld) [#/Vol] 5.8 10*3/uL 2.0-7.7 [facility] Work Phone: Neutrophils/100 WBC (Bld) 80.9 % 47-70 [facility] Work Phone: WBC (Bld) [#/Vol] 7.1 10*3/uL 4.4-11.0 [facility] Work Phone: [phone] Bilirubin [Mass/Vol] 0.20 mg/dL 0.20-1.00 [facility] Work Phone: Comment on above: For patients on eltr ombopag therapy, use of Dimension [place] TBIL is not recommended. Chloride [Moles/Vol] 101 mmol/L 98-107 [facility] Work Phone: [phone] Glucose [Mass/Vol] 113 mg/dL 74-106 [facility] Work Phone: Comment on above: Fasting Glucose resu lt from 100 to 125 mg/dL suggests IMPAIRED HOMEOSTASIS per A.D.A. criteria. Potassium [Moles/Vol] 4.2 mmol/L 3.5-5.[address] [facility] Work Phone: Protein [Mass/Vol] 6.8 g/dL 6.4-8.2 [facility] Work Phone: [phone] Sodium [Moles/Vol] 133 mmol/L 136-145 [facility] Work Phone: Bilirubin Test strip Ql (U)o n 11-25-2021 Bilirubin Ql (U) Negative Negative [facility] Work Phone: [phone] Blood erythrocytes count (nu mber/volume)on 11-25-2021 RBC (Bld) [#/Vol] 2.36 10*6/uL 4.6-6.2 [facility] Work Phone: [phone] Blood hemoglobin measurement (mass/volume)on 11-25-2021 Hemoglobin (Bld) [Mass/Vol] 4.4 g/dL 13.0-16.5 [facility] Work Phone: Comment on above: CRITICAL VALUE VERIF IED. CALLED TO [id number]/09/22 [id number] Kateryna Horn.RESULTS READ BACK BY SAME . Blood lymphocytes/100 leukoc yteson 11-25-2021 Lymphocytes/100 WBC (Bld) 11.4 % 19-41 [facility] Work Phone: Blood manual differential co mment interpretation (narrative result)on 11-25-2021 Manual differential comment Ghassan (Bld) [Interp] SCANNED [facility] Work Phone: Comment on above: ANEMIA NOTED Blood monocytes/100 leukocyt eson 11-25-2021 Monocytes/100 WBC (Bld) 6.3 % 0-10 [facility] Work Phone: Blood platelet mean volumeon 11-25-2021 Platelet mean volume (Bld) [Entitic vol] 10.2 fL 6.2-12.0 [facility] Work Phone: Determination of erythrocyte mean corpuscular volume (MCV)on 11-25-2021 MCV (RBC) [Entitic vol] 71.6 fL 80-94 [facility] Work Phone: Hematocrit Auto (Bld) [Volum e fraction]on 11-25-2021 Hematocrit (Bld) [Volume fraction] 16.9 % 40-54 [facility] Work Phone: Hemoglobin in reticulocytes (mass per reticulocyte)on 11-25-2021 Hemoglobin (Reticulocytes) [Entitic mass] 15.0 pg 30-35 [facility] Work Phone: Hypochromatic red blood cell detectionon 11-25-2021 Hypochromia Ql (Bld) 1+ [facility] Work Phone: INR in Blood by Coagulation assayon 11-25-2021 INR Coag (Bld) [Relative time] 5.4 {INR} [facility] Work Phone: Comment on above: CRITICAL VALUE VERIF IED. CALLED TO [id number] Kateryna Horn.RESULTS READ BACK BY SAME . Iron measurement (mass/mass) on 11-25-2021 Iron (Unsp spec) [Mass/Mass] 10 ug/dL 65-175 [facility] Work Phone: Ketones Test strip Ql (U)on 11-25-2021 Ketones Ql (U) Negative Negative [facility] Work Phone: Laboratory - Chemistry and C hemistry - challengeon 11-25-2021 ALP [Catalytic activity/Vol] 54 U/L 45-117 [facility] Work Phone: [phone] ALT [Catalytic activity/Vol] 20 U/L 16-61 [facility] Work Phone: [phone] CO2 [Moles/Vol] 23.0 mmol/L 21.0-32.0 [facility] Work Phone: [phone] Globulin (S) [Mass/Vol] 3.1 g/dL 2.2-4.2 [facility] Work Phone: [phone] Urea nitrogen/Creatinine [Mass ratio] 16.7 mg/mg 10-20 [facility] Work Phone: [phone] Laboratory - Coagulationon 0 11-25-2021 PT Coag (PPP) [Time] 49.2 s 11.7-14.9 [facility] Work Phone: [phone] Laboratory - Hematology and Cell countson 11-25-2021 Erythrocyte distribution width (RBC) [Entitic vol] 48.7 fL 35.1-43.9 [facility] Work Phone: [phone] Erythrocyte distribution width (RBC) [Ratio] 18.6 % 11.6-14.6 [facility] Work Phone: [phone] Immature granulocytes/100 WBC (Bld) 0.600 % 0.0-0.9 [facility] Work Phone: [phone] Comment on above: IG% - Immature Granu locytes (promyelocytes, myelocytes and metamyelocytes) > 1% indicates that a LEFT SHIFT is Present. MCH (RBC) [Entitic mass] 18.6 pg 27.0-32.0 [facility] Work Phone: [phone] Nucleated RBC/100 WBC (Bld) [Ratio] 0.6 % 0-5 [facility] Work Phone: [phone] Lower GI hemoglobin IA Ql (S tl)on 11-25-2021 Stool Occult Blood (LACI) Positive [facility] Work Phone: [phone] MCHC Auto (RBC) [Mass/Vol]on 11-25-2021 MCHC (RBC) [Mass/Vol] 26.0 g/dL 32-[address] [facility] Work Phone: Mucus LM Ql (Urine sed)on Mucus Ql (Urine sed) 0 SEEN /hpf [facility] Work Phone: Nitrite Test strip Ql (U)on 11-25-2021 Nitrite Ql (U) Negative Negative [facility] Work Phone: [phone] No Panel Informationon 11-25 Immature Reticulocyte Fraction 25.00 % 3.00-15.90 [facility] Work Phone: [phone] Reticulocyte Count 2.10 % 0.5-1.5 [facility] Work Phone: [phone] Estimated Creatinine Clearance Calc 44.86 ml/min [facility] Work Phone: [phone] Estimated GFR (MDRD) Amer 62 mL/min >60 [facility] Work Phone: Comment on above: GFR Calc Estimated GFR (MDRD) Non-Af Amer 51 mL/min >60 [facility] Work Phone: Comment on above: Non- GFR Calc Total Iron Binding Capacity 466 ug/dL 250-450 [facility] Work Phone: [phone] Platelets bldon 11-25-2021 Platelets (Bld) [#/Vol] 398 10*3/uL 150-450 [facility] Work Phone: [phone] Protein Test strip Ql (U)on 11-25-2021 Protein Ql (U) Negative Negative [facility] Work Phone: [phone] Review by pathologiston Pathologist review Ghassan (Unsp spec) [Interp] Lena jj [facility] Work Phone: Pathologist review Ghassan (Unsp spec) [Interp] Reviewed [facility] Work Phone: [phone] Comment on above: Previous reported re sult: Lena gardner Edited by: ALMASOD on 11/26/21:1239Severe Microcytic anemia.Clinical correlation necessary.Sebastian Gonzalez M.D. 11/26/21 AMENDED REPORT 11/26/21 1239 PATH REV previously reported as: October Serum or plasma albumin luis urement (mass/volume)on 11-25-2021 Albumin [Mass/Vol] 3.7 g/dL 3.2-5.0 [facility] Work Phone: Serum or plasma albumin/glob ulin mass ratioon 11-25-2021 Albumin/Globulin [Mass ratio] 1.2 {ratio} 0.9-2.4 [facility] Work Phone: Serum or plasma calcium luis urement (mass/volume)on 11-25-2021 Calcium [Mass/Vol] 8.2 mg/dL 8.5-10.1 [facility] Work Phone: Serum or plasma creatinine m easurement (mass/volume)on 11-25-2021 Creatinine [Mass/Vol] 1.44 mg/dL 0.70-1.[address] [facility] Work Phone: Comment on above: The validity of the calculated GFR & GFRAA in patients over 70 years has not been determined. Clinical correlation is essential. Serum or plasma ferritin arlyn surement (mass/volume)on 11-25-2021 Ferritin [Mass/Vol] 5 ng/mL 26-388 [facility] Work Phone: Serum or plasma folate measu rement (mass/volume)on 11-25-2021 Folate [Mass/Vol] 12.90 ng/mL 3.1-55.4 [facility] Work Phone: Serum or plasma iron saturat ion measurement (mass fraction)on 11-25-2021 Iron saturation [Mass fraction] 2.1 % 15.0-55.0 [facility] Work Phone: Serum or plasma urea nitroge n measurement (mass/volume)on 11-25-2021 Urea nitrogen [Mass/Vol] 24 mg/dL 7-18 [facility] Work Phone: Squamous epithelial cells de tection in urine sediment by light microscopyon 11-25-2021 Epithelial cells.squamous LM Ql (Urine sed) 0 SEEN /hpf 0-5 [facility] Work Phone: Thin prep Papanicolaou smear with manual screeningon 11-25-2021 Thin prep Papanicolaou smear with manual screening 10 U/L 15-37 [facility] Work Phone: Thin prep Papanicolaou smear with manual screening 9 5-15 [facility] Work Phone: Urine blood detectionon RBC Ql (U) 50 /ul Negative [facility] Work Phone: RBC Ql (U) 5-10 SEEN /hpf 0-5 [facility] Work Phone: Urine clarityon 11-25-2021 Clarity (U) Clear Clear [facility] Work Phone: Urine color determinationon 11-25-2021 Color (U) Straw Yellow [facility] Work Phone: Urine glucose detectionon Glucose Ql (U) Normal mg/dl Normal [facility] Work Phone: Urine leukocyte esterase det ection by dipstickon 11-25-2021 Leukocyte esterase Test strip Ql (U) Negative Negative [facility] Work Phone: Urine pHon 11-25-2021 pH (U) 7.0 [pH] 5.0 - 8.0 [facility] Work Phone: Urine sediment bacteria coun t by microscopy (number/high power field)on 11-25-2021 Bacteria LM.HPF (Urine sed) [#/Area] RARE /hpf None Seen [facility] Work Phone: Urine specific gravity measu rementon 11-25-2021 Specific gravity (U) [Rel density] 1.010 1.002-1.030 [facility] Work Phone: Urobilinogen Auto test strip Ql (U)on 11-25-2021 Urobilinogen Ql (U) Normal mg/dl Normal [facility] Work Phone: INR in Blood by Coagulation assayon 11-11-2021 INR Coag (Bld) [Relative time] 1.2 {INR} [facility] Laboratory - Coagulationon 0 11-11-2021 PT Coag (PPP) [Time] 15.1 s 11.7-14.9 [facility] Work Phone: No Panel Informationon 11-08 DLCO (ml/min/mmHg) 7.15 ml/min/mmHg [facility] DLCO/VA (ml/min/mmHg/L) 1.63 ml/min/mmHg/L [facility] [id number]% PRE (L/S) 0.30 L/S [facility] FEV1 PRE (L) 0.85 L [facility] FEV1/FVC PRE (%) 0.38 % [facility] FVC PRE (L) 2.23 L [facility] PEF PRE (L/S) 1.51 L/S [facility] VA (L) 4.38 L [facility] CNCOon 10-18-2021 CNCO Letter Text Letter Text Normal [facility] INR FINGERSTICK B/Oon 2021 INR Coag (Bld) [Relative time] 2.2 EXT [facility] Quality Check No [facility] Absolute lymphocyte counton 10-08-2021 Lymphocytes Auto (Unsp spec) [#/Vol] 1.26 10*3/uL 0.83-4.51 [facility] Work Phone: Basophil percentageon 2021 Basophil percentage 10-25 SEEN /hpf 0-5 [facility] Work Phone: Basophils/100 WBC (Bld) 1.3 % 0-1 [facility] Work Phone: Bilirubin [Mass/Vol] 0.30 mg/dL 0.20-1.00 [facility] Work Phone: Comment on above: For patients on eltr ombopag therapy, use of Dimension [place] TBIL is not recommended. Chloride [Moles/Vol] 105 mmol/L 98-107 [facility] Work Phone: Eosinophils/100 WBC (Bld) 0.5 % 0-5 [facility] Work Phone: Glucose [Mass/Vol] 99 mg/dL 74-106 [facility] Work Phone: Neutrophils (Bld) [#/Vol] 4.3 10*3/uL 2.0-7.7 [facility] Work Phone: Neutrophils/100 WBC (Bld) 70.4 % 47-70 [facility] Work Phone: Potassium [Moles/Vol] 3.7 mmol/L 3.5-5.[address] [facility] Work Phone: Protein [Mass/Vol] 7.5 g/dL 6.4-8.2 [facility] Work Phone: Sodium [Moles/Vol] 138 mmol/L 136-145 [facility] Work Phone: WBC (Bld) [#/Vol] 6.1 10*3/uL 4.4-11.0 [facility] Work Phone: Bilirubin Test strip Ql (U)o n 10-08-2021 Bilirubin Ql (U) Negative Negative [facility] Work Phone: Blood erythrocytes count (nu mber/volume)on 10-08-2021 RBC (Bld) [#/Vol] 3.87 10*6/uL 4.6-6.2 [facility] Work Phone: Blood hemoglobin measurement (mass/volume)on 10-08-2021 Hemoglobin (Bld) [Mass/Vol] 8.3 g/dL 13.0-16.5 [facility] Work Phone: Blood lymphocytes/100 leukoc yteson 10-08-2021 Lymphocytes/100 WBC (Bld) 20.5 % 19-41 [facility] Work Phone: Blood monocytes/100 leukocyt eson 10-08-2021 Monocytes/100 WBC (Bld) 7.0 % 0-10 [facility] Work Phone: Blood platelet mean volumeon 10-08-2021 Platelet mean volume (Bld) [Entitic vol] 10.1 fL 6.2-12.0 [facility] Work Phone: Determination of erythrocyte mean corpuscular volume (MCV)on 10-08-2021 MCV (RBC) [Entitic vol] 74.7 fL 80-94 [facility] Work Phone: Hematocrit Auto (Bld) [Volum e fraction]on 10-08-2021 Hematocrit (Bld) [Volume fraction] 28.9 % 40-54 [facility] Work Phone: INR in Blood by Coagulation assayon 10-08-2021 INR Coag (Bld) [Relative time] 2.4 {INR} [facility] Work Phone: Ketones Test strip Ql (U)on 10-08-2021 Ketones Ql (U) Negative Negative [facility] Work Phone: Laboratory - Chemistry and C hemistry - challengeon 10-08-2021 ALP [Catalytic activity/Vol] 74 U/L 45-117 [facility] Work Phone: ALT [Catalytic activity/Vol] 21 U/L 16-61 [facility] Work Phone: [phone] CO2 [Moles/Vol] 30.0 mmol/L 21.0-32.0 [facility] Work Phone: Globulin (S) [Mass/Vol] 3.7 g/dL 2.2-4.2 [facility] Work Phone: Lipase [Catalytic activity/Vol] 93 U/L 73-393 [facility] Work Phone: Urea nitrogen/Creatinine [Mass ratio] 20.2 mg/mg 10-20 [facility] Work Phone: Laboratory - Coagulationon 0 10-08-2021 PT Coag (PPP) [Time] 25.7 s 11.7-14.9 [facility] Work Phone: Laboratory - Hematology and Cell countson 10-08-2021 Erythrocyte distribution width (RBC) [Entitic vol] 50.4 fL 35.1-43.9 [facility] Work Phone: [phone] Erythrocyte distribution width (RBC) [Ratio] 18.6 % 11.6-14.6 [facility] Work Phone: [phone] Immature granulocytes/100 WBC (Bld) 0.300 % 0.0-0.9 [facility] Work Phone: [phone] Comment on above: IG% - Immature Granu locytes (promyelocytes, myelocytes and metamyelocytes) > 1% indicates that a LEFT SHIFT is Present. MCH (RBC) [Entitic mass] 21.4 pg 27.0-32.0 [facility] Work Phone: [phone] Nucleated RBC/100 WBC (Bld) [Ratio] 0 % 0-5 [facility] Work Phone: [phone] MCHC Auto (RBC) [Mass/Vol]on 10-08-2021 MCHC (RBC) [Mass/Vol] 28.7 g/dL 32-[address] [facility] Work Phone: [phone] Mucus LM Ql (Urine sed)on Mucus Ql (Urine sed) 0 SEEN /hpf [facility] Work Phone: [phone] Nitrite Test strip Ql (U)on 10-08-2021 Nitrite Ql (U) Positive Negative [facility] Work Phone: [phone] Panel Informationon 10-08 Estimated Creatinine Clearance Calc 68.72 ml/min [facility] Work Phone: [phone] Estimated GFR (MDRD) Amer 101 mL/min >60 [facility] Work Phone: [phone] Comment on above: GFR Calc Estimated GFR (MDRD) Non-Af Amer 84 mL/min >60 [facility] Work Phone: [phone] Comment on above: Non- GFR Calc Platelets bldon 10-08-2021 Platelets (Bld) [#/Vol] 349 10*3/uL 150-450 [facility] Work Phone: [phone] Protein Test strip Ql (U)on 10-08-2021 Protein Ql (U) 100 mg/dl Negative [facility] Work Phone: [phone] Serum or plasma albumin luis urement (mass/volume)on 10-08-2021 Albumin [Mass/Vol] 3.8 g/dL 3.2-5.0 [facility] Work Phone: [phone] Serum or plasma albumin/glob ulin mass ratioon 10-08-2021 Albumin/Globulin [Mass ratio] 1.0 {ratio} 0.9-2.4 [facility] Work Phone: [phone] Serum or plasma calcium luis urement (mass/volume)on 10-08-2021 Calcium [Mass/Vol] 9.1 mg/dL 8.5-10.1 [facility] Work Phone: [phone] Serum or plasma creatinine m easurement (mass/volume)on 10-08-2021 Creatinine [Mass/Vol] 0.94 mg/dL 0.70-1.[address] [facility] Work Phone: Comment on above: The validity of the calculated GFR & GFRAA in patients over 70 years has not been determined. Clinical correlation is essential. Serum or plasma urea nitroge n measurement (mass/volume)on 10-08-2021 Urea nitrogen [Mass/Vol] 19 mg/dL 7-18 [facility] Work Phone: [phone] Squamous epithelial cells de tection in urine sediment by light microscopyon 10-08-2021 Epithelial cells.squamous LM Ql (Urine sed) 0-5 SEEN /hpf 0-5 [facility] Work Phone: [phone] Thin prep Papanicolaou smear with manual screeningon 10-08-2021 Thin prep Papanicolaou smear with manual screening 12 U/L 15-37 [facility] Work Phone: [phone] Thin prep Papanicolaou smear with manual screening 3 5-15 [facility] Work Phone: [phone] Urine blood detectionon 09-18 RBC Ql (U) 10 /ul Negative [facility] Work Phone: RBC Ql (U) 0 SEEN /hpf 0-5 [facility] Work Phone: Urine clarityon 10-08-2021 Clarity (U) Sl. Cloudy Clear [facility] Work Phone: Urine color determinationon 10-08-2021 Color (U) Yellow Yellow [facility] Work Phone: Urine glucose detectionon Glucose Ql (U) Normal mg/dl Normal [facility] Work Phone: Urine leukocyte esterase det ection by dipstickon 10-08-2021 Leukocyte esterase Test strip Ql (U) 500 /ul Negative [facility] Work Phone: Urine pHon 10-08-2021 pH (U) 6.5 [pH] 5.0 - 8.0 [facility] Work Phone: Urine sediment bacteria coun t by microscopy (number/high power field)on 10-08-2021 Bacteria LM.HPF (Urine sed) [#/Area] 3 /[HPF] None Seen [facility] Work Phone: Urine specific gravity measu rementon 10-08-2021 Specific gravity (U) [Rel density] 1.010 1.002-1.030 [facility] Work Phone: Urobilinogen Auto test strip Ql (U)on 10-08-2021 Urobilinogen Ql (U) Normal mg/dl Normal [facility] Work Phone: Absolute lymphocyte counton 09-22-2021 Lymphocytes Auto (Unsp spec) [#/Vol] 1.51 10*3/uL 0.83-4.51 [facility] Work Phone: Basophil percentageon 2021 Basophils/100 WBC (Bld) 2.1 % 0-1 [facility] Work Phone: Eosinophils/100 WBC (Bld) 5.1 % 0-5 [facility] Work Phone: Neutrophils (Bld) [#/Vol] 3.7 10*3/uL 2.0-7.7 [facility] Work Phone: Neutrophils/100 WBC (Bld) 60.6 % 47-70 [facility] Work Phone: WBC (Bld) [#/Vol] 6.1 10*3/uL 4.4-11.0 [facility]: Blood erythrocytes count (nu mber/volume)on 09-22-2021 RBC (Bld) [#/Vol] 4.09 10*6/uL 4.6-6.2 [facility] Work Phone: Blood hemoglobin measurement (mass/volume)on 09-22-2021 Hemoglobin (Bld) [Mass/Vol] 9.1 g/dL 13.0-16.5 [facility] Work Phone: Blood lymphocytes/100 leukoc yteson 09-22-2021 Lymphocytes/100 WBC (Bld) 24.8 % 19-41 [facility] Work Phone: Blood monocytes/100 leukocyt eson 09-22-2021 Monocytes/100 WBC (Bld) 6.9 % 0-10 [facility] Work Phone: Blood platelet mean volumeon 09-22-2021 Platelet mean volume (Bld) [Entitic vol] 9.9 fL 6.2-12.0 [facility] Work Phone: Determination of erythrocyte mean corpuscular volume (MCV)on 09-22-2021 MCV (RBC) [Entitic vol] 77.5 fL 80-94 [facility] Work Phone: Hematocrit Auto (Bld) [Volum e fraction]on 09-22-2021 Hematocrit (Bld) [Volume fraction] 31.7 % 40-54 [facility] Work Phone: Laboratory - Hematology and Cell countson 09-22-2021 Erythrocyte distribution width (RBC) [Entitic vol] 56.2 fL 35.1-43.9 [facility] Work Phone: Erythrocyte distribution width (RBC) [Ratio] 19.9 % 11.6-14.6 [facility] Work Phone: Immature granulocytes/100 WBC (Bld) 0.500 % 0.0-0.9 [facility] Work Phone: Comment on above: IG% - Immature Granu locytes (promyelocytes, myelocytes and metamyelocytes) > 1% indicates that a LEFT SHIFT is Present. MCH (RBC) [Entitic mass] 22.2 pg 27.0-32.0 [facility] Work Phone: Nucleated RBC/100 WBC (Bld) [Ratio] 0 % 0-5 [facility] Work Phone: MCHC Auto (RBC) [Mass/Vol]on 09-22-2021 MCHC (RBC) [Mass/Vol] 28.7 g/dL 32-[address] [facility] Work Phone: Platelets bldon 09-22-2021 Platelets (Bld) [#/Vol] 351 10*3/uL 150-450 [facility] Work Phone: CNPNon 09-21-2021 CNPN Telephone ([id number]) PEDRO PABLO SIERRA ([id number]) 1950 M T Date Time Provider Department 09/21/21 YE COELLO1 During your visit today, we recorded the following information about you: Veronica Reyes LPN 09/21/2021 8:44 AM Signed ОЛЕГ BOUDREAUX W/DR. ORTEGA'S OFFICE TRANFERRED PATIENT TO ME TO SCHEDULE APPT W/DR. COELLO TO DISCUSS CHOLECYSTECTOMY. OFFERED TO SCHEDULE APPT, PATIENT VOICED THAT I WOULD NEED TO SPEAK WITH HIS EX-, JOSEPH BURRELL. TRIED REACHING HER AT NUMBER PATIENT GAVE ME, VM FULL, UNABLE TO LEAVE MESSAGE. MIKE Hardin RN 09/21/2021 11:01 AM Signed Pt called back in about making appointment W/DR. COELLO TO DISCUSS CHOLECYSTECTOMY. He states he will make sure his ex- is awake to answer phone call to schedule appointment. Tried to send message to nurse that he previously talked with. Allergies As of Date: 09/21/2021 (No Known Allergies) Date Reviewed: 09/15/2021 Reviewed by: Anjel Braga APRN.ASSISTANT PASTRY CHEF - Fully Assessed Reason for Visit: Appointment [[id number]] Cmt: CONSULT FOR CHOLECYSTECTOMY Prescriptions as of 09/21/2021 - warfarin (COUMADIN) 6 mg tablet Take 2 tablets by mouth once daily. As dosed based on PT/INR - NIFEdipine ER (PROCARDIA XL) 90 mg 24 hr tablet Take 1 tablet by mouth once daily. - aspirin 81 mg chewable tablet Take 1 tablet by mouth once daily. - metoprolol succinate ER (TOPROL XL) 25 mg 24 hr tablet Take 0.5 tablets by mouth once daily. - warfarin (COUMADIN) 5 mg tablet Warfarin 12 mg starting 09/13/2021 - alendronate (FOSAMAX) 70 mg tablet Take 1 tablet by mouth one time a week. - gabapentin (NEURONTIN) 300 mg capsule Take 1 capsule in the AM, 1 capsule midday and 2 capsules at bedtime - albuterol HFA (VENTOLIN HFA) 90 mcg/actuation inhaler Inhale 2 Puffs as instructed every 4 hours as needed. - finasteride (PROSCAR) 5 mg tablet Take 1 tablet by mouth once daily. - ipratropium-albuterol (DUONEB) 0.5 mg-3 mg(2.5 mg base)/3 mL nebu Inhale 3 mL as instructed every 6 hours as needed for wheezing/shortness of breath. - budesonide (PULMICORT) 0.5 mg/2 mL nebulizer solution Use 2 mL via nebulizer twice daily. - Nebulizer Accessories kit Provide nebulizer accessory kit - carBAMazepine XR (TEGRETOL XR) 200 mg 12 hr tablet Take 1 tablet by mouth twice daily. - atorvastatin (LIPITOR) 40 mg tablet Take 1 tablet by mouth once daily. - losartan (COZAAR) 100 mg tablet Take 1 tablet by mouth once daily. - sertraline (ZOLOFT) 100 mg tablet Take 1 tablet by mouth once daily. - mirtazapine (REMERON) 15 mg tablet Take 1 tablet by mouth daily at bedtime. - pantoprazole DR (PROTONIX) 40 mg tablet Take 1 tablet by mouth once daily. - tamsulosin (FLOMAX) 0.4 mg Take 1 capsule by mouth once daily. - Back Brace misc Rigid back brace for compression Fx L3 support. - clopidogrel (PLAVIX) 75 mg tablet Take 1 tablet by mouth once daily. - diclofenac sodium (VOLTAREN) 1 % topical gel Apply 2 g to affected area four times daily. - >Nebulizer For Home Nebulizer for home use. Diagnosis: Pulmonary emphysema, unspecified emphysema type (HCC) [J43.9] - COMPOUNDED PRESCRIPTION Aerosol supplies Dx:J44.1 NPI#[id number] - COMPOUNDED PRESCRIPTION NEBULIZER FOR HOME USE. 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] Anxiety and depression [F41.9, F32.A] Blindness of right eye [H54.40] Bilateral shoulder pain [M25.511, M25.512] 05/12/2013 Neck pain [M54.2] 05/12/2013 Chronic low back pain [M54.50, G89.29] 06/23/2013 Vertebral compression fracture (HCC) [M48.50XA] 07/05/2013 04/23/2020 Lumbar spondylosis [M47.816] 07/05/2013 Lumbar radiculopathy [M54.16] 07/05/2013 Rectal bleeding [K62.5] 11/13/2013 Ischemia of extremity [I99.8] 10/14/2013 02/10/2014 Urinary retention [R33.9] 10/25/2013 DISPOSITION AND FOLLOW-UP [V999.01] 10/25/2013 Erythema of groin [L53.9] 10/30/2013 02/10/2014 SUMMARY [V999.95] 10/30/2013 Pain, postoperative, acute [G89.18] 10/30/2013 02/10/2014 Thrombosis [I82.90] 11/12/2013 02/10/2014 Anticoagulation goal of INR 2 to 3 [Z51.81, Z79*11/19/2013 Melena [K92.1] 12/15/2013 IBD (inflammatory bowel disease) [K52.9] 12/20/2013 RUQ abdominal pain [R10.11] 12/22/2013 Anxiety [F41.9] 12/23/2013 Urinary retention with incomplete bladder empty*12/26/2013 Hyponatremia [E87.1] 12/28/2013 GI bleeding [D62] 01/09/2014 Acute blood loss anemia [D62] 01/28/2014 10/13/2019 s/p left fem (more content not included)... Normal [facility] Absolute lymphocyte counton 09-17-2021 Lymphocytes Auto (Unsp spec) [#/Vol] 1.19 10*3/uL 0.83-4.51 [facility] Work Phone: Basophil percentageon 2021 Basophil percentage 0-5 SEEN /hpf 0-5 [facility] Work Phone: Basophils/100 WBC (Bld) 1.6 % 0-1 [facility] Work Phone: Bilirubin [Mass/Vol] 0.30 mg/dL 0.20-1.00 [facility] Work Phone: Comment on above: For patients on eltr ombopag therapy, use of Dimension [place] TBIL is not recommended. Chloride [Moles/Vol] 104 mmol/L 98-107 [facility] Work Phone: Eosinophils/100 WBC (Bld) 1.1 % 0-5 [facility] Work Phone: Glucose [Mass/Vol] 100 mg/dL 74-106 [facility] Work Phone: Comment on above: Fasting Glucose resu lt from 100 to 125 mg/dL suggests IMPAIRED HOMEOSTASIS per A.D.A. criteria. Neutrophils (Bld) [#/Vol] 5.2 10*3/uL 2.0-7.7 [facility] Work Phone: Neutrophils/100 WBC (Bld) 73.0 % 47-70 [facility] Work Phone: Potassium [Moles/Vol] 4.2 mmol/L 3.5-5.[address] [facility] Work Phone: Protein [Mass/Vol] 7.3 g/dL 6.4-8.2 [facility] Work Phone: Sodium [Moles/Vol] 136 mmol/L 136-145 [facility] Work Phone: WBC (Bld) [#/Vol] 7.1 10*3/uL 4.4-11.0 [facility] Work Phone: Bilirubin Test strip Ql (U)o n 09-17-2021 Bilirubin Ql (U) Negative Negative [facility] Work Phone: [phone] Blood erythrocytes count (nu mber/volume)on 09-17-2021 RBC (Bld) [#/Vol] 3.50 10*6/uL 4.6-6.2 [facility] Work Phone: Blood hemoglobin measurement (mass/volume)on 09-17-2021 Hemoglobin (Bld) [Mass/Vol] 7.9 g/dL 13.0-16.5 [facility] Work Phone: Blood lymphocytes/100 leukoc yteson 09-17-2021 Lymphocytes/100 WBC (Bld) 16.9 % 19-41 [facility] Work Phone: Blood monocytes/100 leukocyt eson 09-17-2021 Monocytes/100 WBC (Bld) 7.1 % 0-10 [facility] Work Phone: Blood platelet mean volumeon 09-17-2021 Platelet mean volume (Bld) [Entitic vol] 9.5 fL 6.2-12.0 [facility] Work Phone: Determination of erythrocyte mean corpuscular volume (MCV)on 09-17-2021 MCV (RBC) [Entitic vol] 75.1 fL 80-94 [facility] Work Phone: Hematocrit Auto (Bld) [Volum e fraction]on 09-17-2021 Hematocrit (Bld) [Volume fraction] 26.3 % 40-54 [facility] Work Phone: INR in Blood by Coagulation assayon 09-17-2021 INR Coag (Bld) [Relative time] 1.3 {INR} [facility] Work Phone: Ketones Test strip Ql (U)on 09-17-2021 Ketones Ql (U) Negative Negative [facility] Work Phone: [phone] Laboratory - Chemistry and C hemistry - challengeon 09-17-2021 ALP [Catalytic activity/Vol] 79 U/L 45-117 [facility] Work Phone: ALT [Catalytic activity/Vol] 36 U/L 16-61 [facility] Work Phone: CO2 [Moles/Vol] 25.0 mmol/L 21.0-32.0 [facility] Work Phone: Globulin (S) [Mass/Vol] 3.5 g/dL 2.2-4.2 [facility] Work Phone: Lipase [Catalytic activity/Vol] 102 U/L 73-393 [facility] Work Phone: Urea nitrogen/Creatinine [Mass ratio] 12.5 mg/mg 10-20 [facility] Work Phone: Laboratory - Coagulationon 0 09-17-2021 PT Coag (PPP) [Time] 15.4 s 11.7-14.9 [facility] Work Phone: Laboratory - Hematology and Cell countson 09-17-2021 Erythrocyte distribution width (RBC) [Entitic vol] 53.1 fL 35.1-43.9 [facility] Work Phone: [phone] Erythrocyte distribution width (RBC) [Ratio] 19.6 % 11.6-14.6 [facility] Work Phone: [phone] Immature granulocytes/100 WBC (Bld) 0.300 % 0.0-0.9 [facility] Work Phone: [phone] Comment on above: IG% - Immature Granu locytes (promyelocytes, myelocytes and metamyelocytes) > 1% indicates that a LEFT SHIFT is Present. MCH (RBC) [Entitic mass] 22.6 pg 27.0-32.0 [facility] Work Phone: [phone] Nucleated RBC/100 WBC (Bld) [Ratio] 0 % 0-5 [facility] Work Phone: [phone] MCHC Auto (RBC) [Mass/Vol]on 09-17-2021 MCHC (RBC) [Mass/Vol] 30.0 g/dL 32-[address] [facility] Work Phone: [phone] Mucus LM Ql (Urine sed)on Mucus Ql (Urine sed) 0 SEEN /hpf [facility] Work Phone: [phone] Nitrite Test strip Ql (U)on 09-17-2021 Nitrite Ql (U) Positive Negative [facility] Work Phone: No Panel Informationon 09-17 Estimated Creatinine Clearance Calc 57.68 ml/min [facility] Work Phone: [phone] Estimated GFR (MDRD) Amer 83 mL/min >60 [facility] Work Phone: [phone] Comment on above: GFR Calc Estimated GFR (MDRD) Non-Af Amer 68 mL/min >60 [facility] Work Phone: [phone] Comment on above: Non- GFR Calc Platelets bldon 09-17-2021 Platelets (Bld) [#/Vol] 342 10*3/uL 150-450 [facility] Work Phone: [phone] Protein Test strip Ql (U)on 09-17-2021 Protein Ql (U) 15 mg/dl Negative [facility] Work Phone: [phone] Serum or plasma albumin luis urement (mass/volume)on 09-17-2021 Albumin [Mass/Vol] 3.8 g/dL 3.2-5.0 [facility] Work Phone: [phone] Serum or plasma albumin/glob ulin mass ratioon 09-17-2021 Albumin/Globulin [Mass ratio] 1.1 {ratio} 0.9-2.4 [facility] Work Phone: [phone] Serum or plasma calcium luis urement (mass/volume)on 09-17-2021 Calcium [Mass/Vol] 8.7 mg/dL 8.5-10.1 [facility] Work Phone: [phone] Serum or plasma creatinine m easurement (mass/volume)on 09-17-2021 Creatinine [Mass/Vol] 1.12 mg/dL 0.70-1.[address] [facility] Work Phone: Comment on above: The validity of the calculated GFR & GFRAA in patients over 70 years has not been determined. Clinical correlation is essential. Serum or plasma urea nitroge n measurement (mass/volume)on 09-17-2021 Urea nitrogen [Mass/Vol] 14 mg/dL 7-18 [facility] Work Phone: Squamous epithelial cells de tection in urine sediment by light microscopyon 09-17-2021 Epithelial cells.squamous LM Ql (Urine sed) 0-5 SEEN /hpf 0-5 [facility] Work Phone: Thin prep Papanicolaou smear with manual screeningon 09-17-2021 Thin prep Papanicolaou smear with manual screening 19 U/L 15-37 [facility] Work Phone: [phone] Thin prep Papanicolaou smear with manual screening 7 5-15 [facility] Work Phone: [phone] Urine blood detectionon 04- RBC Ql (U) Negative Negative [facility] Work Phone: [phone] RBC Ql (U) 0 SEEN /hpf 0-5 [facility] Work Phone: Urine clarityon 09-17-2021 Clarity (U) Clear Clear [facility] Work Phone: Urine color determinationon 09-17-2021 Color (U) Yellow Yellow [facility] Work Phone: Urine glucose detectionon Glucose Ql (U) Normal mg/dl Normal [facility] Work Phone: Urine leukocyte esterase det ection by dipstickon 09-17-2021 Leukocyte esterase Test strip Ql (U) 25 /ul Negative [facility] Work Phone: Urine pHon 09-17-2021 pH (U) 6.0 [pH] 5.0 - 8.0 [facility] Work Phone: Urine sediment bacteria coun t by microscopy (number/high power field)on 09-17-2021 Bacteria LM.HPF (Urine sed) [#/Area] 1 /[HPF] None Seen [facility] Work Phone: Urine specific gravity measu rementon 09-17-2021 Specific gravity (U) [Rel density] 1.010 1.002-1.030 [facility] Work Phone: Urobilinogen Auto test strip Ql (U)on 09-17-2021 Urobilinogen Ql (U) Normal mg/dl Normal [facility] Work Phone: PT panel Coag (PPP)on 2021 INR Coag (Bld) [Relative time] 2.1 (EXT) 2.0 - 3.0 [facility] UA DIP, URINE (POC)on 2021 BILIRUBIN UA (POCT) Negative Negative [facility] CLARITY UA (POCT) Clear [facility] COLOR UA (POCT) Yellow [facility] GLUCOSE UA (POCT) Negative Negative mg/dL [facility] HEMOGLOBIN/BLOOD UA (POCT) Trace-lysed Abnormal Negative [facility] KETONE UA (POCT) Negative Negative mg/dL [facility] LEUKOCYTES UA (POCT) Small Abnormal Negative [facility] NITRITE UA (POCT) Positive Abnormal Negative [facility] PH UA (POCT) 5.5 4.5 - 8.0 [facility] Protein Ql (U) 100 mg/dL Abnormal Negative mg/dL [facility] SPECIFIC GRAVITY UA (POCT) 1.020 1.005 - 1.030 [facility] UROBILINOGEN UA (POCT) 0.2 E.U./dL Malaika l E.U./dL [facility] Glucose Glucometer (BldC) [M ass/Vol]on 08-21-2021 Glucose [Mass/Vol] 102 mg/dL 74-106 [facility] Work Phone: Comment on above: MANAGEMENT OF PATIEN T CARE PER NURSING PROTOCOL INR in Blood by Coagulation assayon 08-21-2021 INR Coag (Bld) [Relative time] 1.2 {INR} [facility] Work Phone: Laboratory - Coagulationon 0 08-21-2021 PT Coag (PPP) [Time] 14.9 s 11.7-14.9 [facility] Work Phone: Absolute lymphocyte counton 08-20-2021 Lymphocytes Auto (Unsp spec) [#/Vol] 0.77 10*3/uL 0.83-4.51 [facility] Work Phone: Basophil percentageon 2021 Basophils/100 WBC (Bld) 0.8 % 0-1 [facility] Work Phone: Bilirubin [Mass/Vol] 0.70 mg/dL 0.20-1.00 [facility] Work Phone: Comment on above: For patients on eltr ombopag therapy, use of Dimension [place] TBIL is not recommended. Chloride [Moles/Vol] 107 mmol/L 98-107 [facility] Work Phone: Eosinophils/100 WBC (Bld) 2.2 % 0-5 [facility] Work Phone: Glucose [Mass/Vol] 99 mg/dL 74-106 [facility] Work Phone: Neutrophils (Bld) [#/Vol] 4.9 10*3/uL 2.0-7.7 [facility] Work Phone: Neutrophils/100 WBC (Bld) 77.2 % 47-70 [facility] Work Phone: Potassium [Moles/Vol] 3.7 mmol/L 3.5-5.[address] [facility] Work Phone: Protein [Mass/Vol] 6.2 g/dL 6.4-8.2 [facility] Work Phone: Sodium [Moles/Vol] 139 mmol/L 136-145 [facility] Work Phone: WBC (Bld) [#/Vol] 6.3 10*3/uL 4.4-11.0 [facility] Work Phone: Blood erythrocytes count (nu mber/volume)on 08-20-2021 RBC (Bld) [#/Vol] 3.72 10*6/uL 4.6-6.2 [facility] Work Phone: Blood hemoglobin measurement (mass/volume)on 08-20-2021 Hemoglobin (Bld) [Mass/Vol] 7.8 g/dL 13.0-16.5 [facility] Work Phone: Blood lymphocytes/100 leukoc yteson 08-20-2021 Lymphocytes/100 WBC (Bld) 12.2 % 19-41 [facility] Work Phone: Blood monocytes/100 leukocyt eson 08-20-2021 Monocytes/100 WBC (Bld) 6.8 % 0-10 [facility] Work Phone: Blood platelet mean volumeon 08-20-2021 Platelet mean volume (Bld) [Entitic vol] 9.7 fL 6.2-12.0 [facility] Work Phone: Determination of erythrocyte mean corpuscular volume (MCV)on 08-20-2021 MCV (RBC) [Entitic vol] 72.8 fL 80-94 [facility] Work Phone: Hematocrit Auto (Bld) [Volum e fraction]on 08-20-2021 Hematocrit (Bld) [Volume fraction] 27.1 % 40-54 [facility] Work Phone: [phone] Laboratory - Chemistry and C hemistry - challengeon 08-20-2021 ALP [Catalytic activity/Vol] 224 U/L 45-117 [facility] Work Phone: [phone] ALT [Catalytic activity/Vol] 335 U/L 16-61 [facility] Work Phone: [phone] CO2 [Moles/Vol] 27.0 mmol/L 21.0-32.0 [facility] Work Phone: [phone] Globulin (S) [Mass/Vol] 3.5 g/dL 2.2-4.2 [facility] Work Phone: [phone] Urea nitrogen/Creatinine [Mass ratio] 11.9 mg/mg 10-20 [facility] Work Phone: [phone] Laboratory - Hematology and Cell countson 08-20-2021 Erythrocyte distribution width (RBC) [Entitic vol] 50.8 fL 35.1-43.9 [facility] [facility] Work Phone: [phone] Erythrocyte distribution width (RBC) [Ratio] 19.5 % 11.6-14.6 [facility] Work Phone: [phone] Immature granulocytes/100 WBC (Bld) 0.800 % 0.0-0.9 [facility] Work Phone: [phone] Comment on above: IG% - Immature Granu locytes (promyelocytes, myelocytes and metamyelocytes) > 1% indicates that a LEFT SHIFT is Present. MCH (RBC) [Entitic mass] 21.0 pg 27.0-32.0 [facility] Work Phone: [phone] Nucleated RBC/100 WBC (Bld) [Ratio] 0 % 0-5 [facility] Work Phone: [phone] MCHC Auto (RBC) [Mass/Vol]on 08-20-2021 MCHC (RBC) [Mass/Vol] 28.8 g/dL 32-36 [facility]: [phone] Panel Informationon 08-20 Estimated Creatinine Clearance Calc 63.96 ml/min [facility] Work Phone: Estimated GFR (MDRD) Amer 93 mL/min >60 [facility] Work Phone: Comment on above: GFR Calc Estimated GFR (MDRD) Non-Af Amer 77 mL/min >60 [facility] Work Phone: Comment on above: Non- GFR Calc Platelets bldon 08-20-2021 Platelets (Bld) [#/Vol] 409 10*3/uL 150-450 [facility] Work Phone: Serum or plasma albumin luis urement (mass/volume)on 08-20-2021 Albumin [Mass/Vol] 2.7 g/dL 3.2-5.0 [facility] Work Phone: Serum or plasma albumin/glob ulin mass ratioon 08-20-2021 Albumin/Globulin [Mass ratio] 0.8 {ratio} 0.9-2.4 [facility] Work Phone: Serum or plasma calcium luis urement (mass/volume)on 08-20-2021 Calcium [Mass/Vol] 7.9 mg/dL 8.5-10.1 [facility] Work Phone: Serum or plasma creatinine m easurement (mass/volume)on 08-20-2021 Creatinine [Mass/Vol] 1.01 mg/dL 0.70-1.[address] [facility] Work Phone: Comment on above: The validity of the calculated GFR & GFRAA in patients over 70 years has not been determined. Clinical correlation is essential. Serum or plasma urea nitroge n measurement (mass/volume)on 08-20-2021 Urea nitrogen [Mass/Vol] 12 mg/dL 7-18 [facility] Work Phone: Thin prep Papanicolaou smear with manual screeningon 08-20-2021 Thin prep Papanicolaou smear with manual screening 150 U/L 15-37 [facility] Work Phone: Thin prep Papanicolaou smear with manual screening 5 5-15 [facility] Work Phone: Laboratory - Coagulationon 0 08-19-2021 aPTT Coag (Bld) [Time] 37.1 s 24.1-36.2 [facility] Work Phone: No Panel Informationon 08-19 Troponin I High Sensitivity 15 pg/mL 3.0-78.0 [facility] Work Phone: Comment on above: Please Note: New [place] t Units and Gender Specific Reference Ranges. For more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 (AK,AV,EU,FV,HL,BENI,MM, SP) - Abnormal; Notable for the following components: Albumin 5.2 (*) 3.9 - 4.9 g/dL Bilirubin, Total <0.2 (*) 0.2 - 1.3 mg/dL Glucose 106 (*) 74 - 99 mg/dL All other components within normal limits HIGH SENSITIVITY TROPONIN T (AK AV,EU,FV,HL,BENI,MM,SP) - Abnormal; Notable for the following components: MARCIE High Sensitivity 15 (*) <12 ng/L All other components within normal limits HIGH SENSITIVITY TROPONIN T (AK AV,EU,FV,HL,BENI,MM,SP) - Abnormal; Notable for the following components: MARCIE High Sensitivity 16 (*) <12 ng/L All other components within normal limits TROPONIN T (AK,EU,FV,HL,BENI,MM,SP) PROTHROMBIN TIME / PT (AK,AV,EU,FV,HL,BENI,MM, SP) HIGH SENSITIVITY TROPONIN T (AK AV,EU,FV,HL,BENI,MM,SP) CT BRAIN WO IVCON Final Result IMPRESSION: NO CT EVIDENCE OF ACUTE INTRACRANIAL PROCESS. Live Source Operator: SHANELL Transcribe Date/Time: Apr 10 2020 4:01P Dictated by : REBECCA BRYAN MD This examination was interpreted and the report reviewed and electronically signed by: REBECCA BRYAN MD on Apr 10 2020 4:04PM EST XR CHEST 2V FRONTAL/LAT Final Result IMPRESSION: Mild interstitial prominence suggestive of airways inflammation such as asthma or bronchitis Live Source Operator: SHANELL Transcribe Date/Time: Apr 10 2020 3:50P Dictated by : DAIANA SEBASTIAN MD This examination was interpreted and the report reviewed and electronically signed by: DAIANA SEBASTIAN MD on Apr 10 2020 3:51PM EST Procedures ED Course / Clinical Impression ED Course as of Apr 11 2200 Others' Documentation Fri Apr 10, 2020 1927 Patient was signed out pending third high-sensitivity troponin. Via care path, this is a low risk ACS condition. Patient was reevaluated. He states he is still having just a mild headache which is fairly typical for him and resolves with Aleve. Discussed he should not be taking NSAIDs while on Coumadin. He is amenable for d/c home and understands return precautions. [MARCELA] ED Course User Index [MARCELA] YARIEL Dickinson Clinical Impressions as of Apr 11 2200 Hypertension, unspecified type Nonintractable headache, unspecified chronicity pattern, unspecified headache type MDM / Disposition / Plan 69-year-old male history of COPD CAD [place] obesity diabetes is here today with elevated blood pressure at an appointment today and was encouraged to come get ED evaluation. Levels: Blood pressure 208/88 here otherwise normal Labs: CBC, CMP, troponin, INR Imaging: Chest x-ray EKG is normal sinus rhythm no obvious ST segment elevation or depression Patient was given Tylenol for headache. He was given his home metoprolol and Norvasc as he did not yet take these today. He is trending down after his home medications into the 180s systolic. CT brain is unremarkable. High-sensitivity troponin initially of 15, second high-sensitivity troponin at 16. This does qualify for the third hour troponin. He is chest pain-free currently. Patient was signed out to Marnie Iglesias PA-C at end of shift pending 3rd hour trop. Plan to d/c home if within normal range. Discussed plan and management with Dr. Barkley. SIGNATURE: HOWIE Spear) YARIEL Lisa 04/10/201808 Attending Note I have personally performed a face to face assessment of the patient and have reviewed the PA/PRIVATE SECRETARY note. My echevarria findings include: History is 69-year-old male here today with elevated blood pressure as well as generalized headache he states he gets migraines and this feels similar. He has no other complaints to me including no nausea no vomiting no blurred vision including no chest pain despite time the physician's fws faculty assistant he was having chest pain he told me he was having no chest pain. He admits he did not take his blood pressure medication today. Exam is nontoxic male no acute distress vital signs reviewed and are significant for hypertension otherwise no tachycardia lungs clear to auscultation well-appearing nonfocal neurologic exam including cranial nerves II through XII tested and unremarkable no upper or lower extremity drift sensation changes or ataxia or noticeable weakness no slurred speech no meningeal signs. Assessment/Plan are cardiovascular evaluation given that he told the physicians fws faculty assistant he was having left changes chest pain but he told me he was having none 2 high-sensitivity troponins are 15 and 16 respectively third 1 pending at the time of my discharge but since he was having no chest pain for me and he was just experiencing a migraine that was not acute in onset sudden onset he had not taken his blood pressure medication he was given his hypertensive medications to improve his blood pressure. CT brain shows no evidence of acute process. Chest x-ray shows mild interstitial prominence suggestive of airway inflammation such as asthma or bronchitis, sinus rhythm at [address] elevation otherwise nonspecific nondiagnostic ST-T wave changes, patient likely after third troponin will be discharged home to follow-up as an outpatient for hypertension. Signature: Alie Barkley DO Date: 04/11/2020 Time: 10:00 PM Alie Barkley 04/11/20 2203 Normal [facility] High Sens Troponin Ton 04-10 High Sensitivity MARCIE 16 ng/L High <12 [facility] High Sensitivity MARCIE 16 ng/L High <12 [facility] High Sensitivity MARCIE 15 ng/L High <12 [facility] PROGRESSon 04-10-2020 PROGRESS HNO ID: [id number] Author: William Murray (Ct) Service: ? Author Type: Oven Worker Type: Progress Notes Filed: 04/10/2020 3:58 PM Note Text: Radiology Service Progress Note PATIENT NAME: Pedro Pablo Sierra DATE OF SERVICE: April 10, 2020 TIME: 3:57 PM PATIENT IDENTITY VERIFICATION COMPLETED USING TWO (2) IDENTIFIERS: Name and Date of confirmed by patient verbally and Name and Date of confirmed by identification band. FALL SCREENING: Has the patient had 2 falls in the last year or 1 fall with injury or currently using an Ambulatory Assistive Device (Walker, Cane, Wheelchair, Crutches, etc.)? Emergency Room Patient: Screened in ED PATIENT GENDER DATA: Male PATIENT RELEVANT IMPLANT DATA REVIEWED: Not Applicable RADIOLOGY DEPARTMENT: CT; Exam(s) Completed: Brain PERIPHERAL IV DATA: Not applicable SIGNED BY: RT Trevor April 10, 2020 3:57 PM [facility] PROGRESS HNO ID: [id number] Author: Kalee NessRt) Mac Service: Radiology Author Type: Oven Worker Type: Progress Notes Filed: 04/10/2020 3:47 PM Note Text: Radiology Service Progress Note PATIENT NAME: Pedro Pablo Sierra DATE OF SERVICE: April 10, 2020 TIME: 3:46 PM PATIENT IDENTITY VERIFICATION COMPLETED USING TWO (2) IDENTIFIERS: Name and Date of confirmed by patient verbally and Name and Date of confirmed by identification band. FALL SCREENING: Has the patient had 2 falls in the last year or 1 fall with injury or currently using an Ambulatory Assistive Device (Walker, Cane, Wheelchair, Crutches, etc.)? Emergency Room Patient: Screened in ED PATIENT GENDER DATA: Male PATIENT RELEVANT IMPLANT DATA REVIEWED: Not Applicable RADIOLOGY DEPARTMENT: General X-ray: Exam(s) Completed: Chest X-Ray PERIPHERAL IV DATA: Not applicable SIGNED BY: SEAN SPANN(R) April 10, 2020 3:46 PM [facility] Protimeon 04-10-2020 PT Coag (PPP) [Time] 1.2 s Normal 0.9-1.3 [facility] Comment on above: Result Comment: Teri min K Antagonist (VKA) Therapeutic Range: INR 2 to 3 (Target INR of 2.5) Note: For patients treated with VKA drugs, such as warfarin, the [place] [employer] 2012 Guideline recommends [...] 2.5 to 3.5 (target INR of 3). Guyatt GH, et al. Chest 2012, 141:7S-47S Gio RA, et al. [facility] 2017, 70: 252-289 PT Coag (PPP) [Time] 12.9 s Normal 9.7-13.0 [facility] Troponin Ton 04-10-2020 Troponin T.cardiac [Mass/Vol] ug/L Normal 0.000-0.029 [facility] XR CHEST 2V FRONTAL/LATon XR CHEST 2V FRONTAL/LAT * * *Final Repor t* * * DATE OF EXAM: Apr 10 2020 3:49PM VHX [id number] - XR CHEST 2V FRONTAL/LAT / PROCEDURE REASON: Chest pain * * * * Physician Interpretation * * * * EXAMINATION: CHEST RADIOGRAPH (2 VIEW FRONTAL and LATERAL) CLINICAL HISTORY: Chest pain MQ: [id number] EXAM DATE/TIME: 04/10/2020 3:49 PM COMPARISON: 10/10/2019 RESULT: Lines, tubes, and devices: None. Lungs and pleura: No consolidation. No lung mass. No pleural effusion. No pneumothorax. There is peribronchial thickening seen in the lungs. Cardiomediastinal silhouette: Normal cardiomediastinal silhouette. Bones and soft tissues: Unremarkable. IMPRESSION: Mild interstitial prominence suggestive of airways inflammation such as asthma or bronchitis Live Source Operator: SHANELL Transcribe Date/Time: Apr 10 2020 3:50P Dictated by : DAIANA SEBASTIAN MD This examination was interpreted and the report reviewed and electronically signed by: DAIANA SEBASTIAN MD on Apr 10 2020 3:51PM EST [id number] Normal [facility] CTA ABD/PEL/LOWER EXT WO/W I VCONon 04-02-2020 CTA ABD/PEL/LOWER EXT WO/W IVCON * * *Final Report* * * DATE OF EXAM: Apr 02 2020 4:52PM [facility] 0465 - CTA ABD/PEL/LOWER EXT WO/W IVCON / PROCEDURE REASON: I73.9-Peripheral vascular disease (HCC) * * * * Physician Interpretation * * * * CT ANGIOGRAM OF THE ABDOMEN, PELVIS, AND BILATERAL LOWER EXTREMITIES HISTORY: 69-year-old male with history of peripheral vascular disease TECHNIQUE: High-resolution contrast-enhanced helical CT of the abdomen, pelvis and both lower extremities was performed, timed to the arterial phase. 3-D processing was performed by the physician on an independent work station, with MIP and volume-rendering techniques. Total of 100 ml of Omnipaque 350 was injected IV during the examination. The study was performed without oral contrast. The patient tolerated the injection without complications. Dose-Length Product (DLP): 1563 mGy*cm. CT Dose Reduction Employed: Automated exposure control (AEC) RESULT: COMPARISON: CTA 10/17/[address] abdomen pelvis 02/07/2016. ABDOMEN: Images of the aorta demonstrate diffuse atherosclerotic change without significant focal stenosis or aneurysm. Celiac artery demonstrates 40-60% ostial narrowing. Superior mesenteric artery demonstrates no significant focal stenosis. Inferior mesenteric artery demonstrates no significant focal stenosis. There is a single right renal artery. Right renal artery demonstrates less than 30% narrowing. There is a single renal vein which is patent. There is a single left renal artery. Left renal artery demonstrates critical greater than 90% ostial stenosis. There is a single renal vein which is patent. RIGHT LEG: Right common iliac artery is stented in a kissing fashion against the left common iliac artery. Stent graft is patent with minimal [id number] thrombus not causing significant narrowing. The stent extends into the external iliac artery. Right external iliac artery is stented along its length. Stent is widely patent with no in-stent stenosis. Right internal iliac artery is excluded by the stent graft extending from the common to external iliac. The vessel reconstitutes faintly in the distal portions. Right common femoral artery demonstrates diffuse atherosclerotic change without significant focal stenosis. Right profunda femoris artery is widely patent with no significant stenosis. Right superficial femoral artery demonstrates diffuse atherosclerotic change multifocal areas of at least mild narrowing until the adductor hiatus where there is a region of moderate grade (40-60% stenosis (series 6 images 788 and 829). Right popliteal artery demonstrates diffuse atherosclerotic change without significant focal stenosis. Right anterior tibial artery demonstrates diffuse calcified atherosclerotic change without definite significant focal stenosis however, the small size of the vessel makes it difficult to determine degree of narrowing at sites of calcification. Dorsalis pedis is seen . Right tibioperoneal trunk is patent with no significant stenosis. Right posterior tibial artery is patent with no significant stenosis. Posterior tibial artery is seen to the foot. Right peroneal artery is patent with no significant stenosis. LEFT LEG: Left common iliac artery is stented in a kissing fashion against the right common iliac artery stent. The stent is widely patent along the length of the common iliac artery however, extends into the external iliac artery.. Left external iliac artery is stented along its length and has an area of at least moderate (40-60%) grade narrowing in the distal component secondary to mural thrombus formation (6:409). Left internal iliac artery is excluded by the stent graft but reconstitutes in the deep pelvis.. Left common femoral artery extensive surgical changes from patient's prior PTFE bypass graft from left external iliac artery to common femoral artery and a sartorius flap. 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 Left profunda femoris artery is narrowed significantly (greater than 70%) at its origin but is patent distally.. Left superficial femoral artery demonstrates high-grade narrowing (greater than 70%) at its origin (6:505) and demonstrates scattered atherosclerotic change causing multifocal areas of moderate to high-grade stenosis along its length including additional high-grade narrowing in the adductor hiatus (6:806). Left popliteal artery demonstrates diffuse atherosclerotic change with areas of moderate to high-grade narrowing including at the vessels origin just after the adductor hiatus (6:854). Left anterior tibial artery is patent with no significant stenosis. Dorsalis pedis is seen and normal in appearance. Left tibioperoneal trunk is patent with no significant stenosis. Left posterior tibial artery diffusely abnormal and diminutive and is no longer seen at the level of the ankle. Left peroneal artery is patent with no significant stenosis. NONVASCULAR FINDINGS: Liver: Redemonstrated is a small hypoattenuating region in the segment VII, too small to characterize however unchanged since 2016 and likely benign. No hepatic lesions. Biliary: No bile duct dilation. Gallbladder is unremarkable. Spleen: No mass. No splenomegaly. Pancreas: No mass or duct dilation. Adrenals: Redemonstrated is a right-sided 1.8 x 1.3 cm adrenal nodule and left-sided 3.8 x 3.2 cm cm adrenal nodule. These are unchanged in size in 2016) previously have been characterized as adenomas. Kidneys: There is delayed nephrogram and decreased excretion of contrast on the delayed phase from the left kidney likely related to the critical artery stenosis on that side. No mass, calculus or hydronephrosis. Subcentimeter hypodensities are seen which are too small to characterize but likely benign. GI tract: No dilation or wall thickening. Lymph nodes: No abdominal or pelvic lymphadenopathy. Mesentery/Peritoneum: No ascites or mass. Retroperitoneum: No mass. Pelvis: No mass, ascites or fluid collection. Bladder is unremarkable. Bones/Soft Tissues: Degenerative changes. Lower thorax: No mass or concerning nodules. No pleural effusions. IMPRESSION: Celiac artery with moderate ostial narrowing. Left renal artery with critical ostial stenosis. Additionally the left kidney demonstrates a delayed nephrogram with decreased contrast excretion compared to the right side likely related to this degree of artery stenosis. Right lower extremity; * Common and external iliac artery stent grafted. Both vessels are widely patent. * SFA has region of moderate grade stenosis at the adductor hiatus * Three-vessel runoff of the right lower extremity. The right anterior tibial artery demonstrates diffuse calcific atherosclerotic change. Left lower extremity; * Stent grafted common and external iliac with extensive surgical change from PTFE graft bypassing the external iliac to the common femoral. 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 * SFA and profunda femoris artery both demonstrate severe narrowing of there origins. These changes are similar to 10/17/2019 study. * Additional high grade stenosis at the adductor hiatus of the SFA and the origins of the popliteal artery. * Two-vessel runoff of the left lower extremity with a diffusely diseased and diminutive posterior tibial artery which is no longer seen beyond the distal calf. No acute nonvascular findings. Live Source Operator: SHANELL Transcribe Date/Time: Apr 03 2020 8:25A Dictated by : Nelson SARABIA DO This examination was interpreted and the report reviewed and electronically signed by: Nelson SARABIA DO on Apr 03 2020 9:38AM EST [id number] [facility] NURSING PROGon 04-02-2020 NURSING PROG HNO ID: [id number] Author: Libby NessRn) ОЛЕГ Coello Service: Cardiovascular Testing Author Type: Registered Nurse Type: Nursing Progress Note Filed: 04/02/2020 4:39 PM Note Text: Radiology Service Progress Note DATE OF SERVICE: April 02, 2020 TIME: 4:38 PM PATIENT IDENTITY VERIFICATION COMPLETED USING TWO (2) STANDARD IDENTIFIERS: Name and Date of confirmed by patient verbally. FALL SCREENING: Has the patient had 2 falls in the last year or 1 fall with injury or currently using an Ambulatory Assistive Device (Walker, Cane, Wheelchair, Crutches, etc.)? Yes, Patient High Risk for Falls What interventions were put in place to prevent falls during this visit? [place] Risk Wristband Applied, Instructed Patient to Call for Help if Needed, Offered Assistance with Transfers/Clothing, Instructed Patient to Remain Seated (Not on Exam Table) Until Exam and Increased Observations by Caregivers PATIENT GENDER DATA: Male ALLERGIES: Reviewed and unchanged CONTRAST ALLERGY: No EXAM: CT -CONTRAST INDUCED NEPHROPATHY RISK FACTORS: Patient age > 60 years CREATININE: Creatinine Date Value Ref Range Status 04/02/2020 1.24 (H) 0.73 - 1.22 mg/dL Final 12/17/2019 0.79 0.70 - 1.40 mg/dL Final 10/25/2019 0.80 0.70 - 1.40 mg/dL Final eGFR-All Other Races Date Value Ref Range Status 04/02/2020 58 . Final Comment: eGFR (Estimated GFR) Units [...] GFR. eGFR- Date Value Ref Range Status 04/02/2020 >60 Final P.O.C.T. RESULTS: N/A April 02, 2020 TREATMENT: N/A and No Hydration needed. IV SITE: Ambulatory: A peripheral IV was started in the Left antecubital site with a Angio cath: 20 gauge. IV SITE APPEARANCE: Clean,Dry and Intact SIGNATURE: Libby Coello RN PATIENT NAME: Pedro Pablo Sierra DATE: April 02, 2020 TIME: 4:38 PM Normal [facility] PROGRESSon 04-02-2020 PROGRESS HNO ID: [id number] Author: Lucy Levin) DEANNE Yen Service: Radiology Author Type: Oven Worker Type: Progress Notes Filed: 04/02/2020 4:51 PM Note Text: Radiology Service Progress Note PATIENT NAME: Pedro Pablo Sierra DATE OF SERVICE: April 02, 2020 TIME: 4:51 PM PATIENT IDENTITY VERIFICATION COMPLETED USING TWO (2) IDENTIFIERS: Name and Date of confirmed by patient verbally. FALL SCREENING: Has the patient had 2 falls in the last year or 1 fall with injury or currently using an Ambulatory Assistive Device (Walker, Cane, Wheelchair, Crutches, etc.)? No PATIENT GENDER DATA: Male PATIENT RELEVANT IMPLANT DATA REVIEWED: Not Applicable RADIOLOGY DEPARTMENT: CT; Exam(s) Completed: CTA Aorta/leg runoff PERIPHERAL IV DATA: Site assessment: Clean,Dry and Intact, Site disposition Discontinued SIGNED BY: DEANNE Tuttle April 02, 2020 4:51 PM [facility] APTTon 12-17-2019 aPTT Coag (Bld) [Time] 31.0 s Normal 23.0-32.4 [facility] Comment on above: Result Comment: Unfr actionated Heparin Therapeutic Ranges: Standard Heparin Nomogram: 53 to 78 seconds (anti-Xa level of 0.3 to 0.7 U/ml) Low Dose/ACS Nomogram: 49 to 67 seconds (anti-Xa level of 0.2 to 0.5 U/ml) Stroke Treatment Nomogram: 49 to 67 seconds (anti-Xa level of 0.2 to 0.5 U/ml) Note: The APTT therapeutic range has been determined for the current lot of laboratory APTT reagent in use throughout the [facility]. Performed By: #### C BCDIF, CMP, MG1, PHOS, PT, PTT ####[facility] [place], [place] [phone] CASE MANAGEMon 12-17-2019 CASE MANAGEM HNO ID: [id number] Author: Eva NessRn) ОЛЕГ Yee Service: Care Management Author Type: Registered Nurse Type: Care Mgt Progress Note Filed: 12/17/2019 4:56 PM Note Text: CARE MANAGEMENT DISCHARGE NOTE SERVICE DATE: 12/17/2019 SERVICE TIME: 4:54 PM LOS: 0 days Admission Date: 12/17/2019 DISCHARGE ARRANGEMENT (list agency and phone number) Discharge Arrangement: Return to senior care;custodial facility Was an expedited discharge program used?: No CAREGIVER ASSESSMENT: Caregiver is ready, willing and able to meet the patient's needs as recommended by the inter-professional team:: Yes Does the patient have an acute stroke diagnosis, or has the patient had a stroke during this admission?: No Patient's transition needs and plan for meeting these needs: Prison Faciliyt HANDOFF COMMUNICATION: Handoff to: Primary Care Physician Primary Care Physician Name/Phone: Daija [phone] TRANSPORTATION ARRANGEMENTS: Transportation Arrangements: Ambulance/[facility] Transportation Agency and Phone #:: Jb Koroma [phone] Date of Trip: 12/17/19 Type of Service: BLS Non-emergency Is Patient Medicaid Pending?: No Discussion of financial coverage occurred with: Patient C Wpf Developer Location: [place] Destination: [facility] Financial Care Management Responsibility: None ADDITIONAL CONTACT RESOURCES: none Discharge Information Row Name Admission (Current) from 12/17/2019 in [facility] Transportation Agency Jb good Transport Arranged To: [facility] Agency [facility] Needs Prior to Discharge: Ready for Discharge Discharge order in place. Pt will transfer back to [facility]. Transport scheduled with Jb Franci. Authorization call to [facility] for approval for transport completed, auth number provided to [facility]. Referrals updated. Discharge packet on chart. Rn notified of transport time. Patient also updated on transport scheduled for tonight. SIGNATURE: Eva Yee RN PATIENT NAME: Pedro Pablo Sierra DATE: December 17, 2019 TIME: 4:54 PM PAGER/CONTACT #: [phone] [facility] CASE MGT INIT JOSEdisha 2019 CASE MGT INIT JOSE HNO ID: [id number] Author: Eva NessRn) ОЛЕГ Yee Service: Care Management Author Type: Registered Nurse Type: Care Mgt Initial Assessment Filed: 12/17/2019 2:51 PM Note Text: CARE MANAGEMENT: ASSESSMENT AND DISCHARGE PLAN SERVICE DATE: December 17, 2019 SERVICE TIME: 2:39 PM PRIMARY CARE PHYSICIAN: DAIJA MORTON MD ADMISSION STATUS: Observation Needs Prior to Discharge: To Be Determined;OT/PT Evaluation;Precertific ation;Discharge Transportation MEDICAL: [facility] MEDICARE 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 Last discharge within 30 days: No Advance Directive: Current Advance Directive: Health Care Power of Cube Machine Tender In Chart: Yes Up To Date and Valid: Yes Health LiteracyHow often do you need to have someone help you when you read instructions, pamphlets, or other written material from your doctor or pharmacy? : 4 - Often How confident are you filling out medical forms by yourself?: 4 - A little bit If Patient scores > 3 on either question, the following interventions were put into place:: Use of plain language and active listening with Patient and family;Teach back methods employed to ensure comprehension;Use concrete and specific phrases, avoid medical jargon;Sit with Patient;Forms of communication used with patient and family;Gave Patient the opportunity to ask questions Baseline Mental Status Prior to this Illness what was the patient's Baseline Mental Status?: Alert AND Oriented Prior to this illness, has anyone described the patient having any of the following behaviors?: Not Applicable Relationship of the informant to the patient:: Self Functional Status: Needs Assistance;Dependent Does Patient Currently Receive Any Community Services or Home Care?: Prison;Physical Therapist;Occupational Therapist;Other: See Comment(speech therapy) Equipment Prior to Admission: Other: See Comment(Using equipment at facility) Location and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 non-edematous, no ecchymosis or bruising. . Neurologic: Subjective numbness over left anterior thigh. . DATA: Pending. Eloisa Lin MD PGY III general surgery Pager [phone] *On weekends or nights (after 1800) please contact the surgery director environmental pager.* Normal [facility] Magnesiumon 12-17-2019 Magnesium [Mass/Vol] 1.6 mg/dL Low 1.7-2.6 [facility] Comment on above: Performed By: #### C BCDIF, CMP, MG1, PHOS, PT, PTT ####[facility] [place], [place] [phone] NURSING PROGon 12-17-2019 NURSING PROG HNO ID: [id number] Author: Breana (Rn) ОЛЕГ Bernal Service: ? Author Type: Registered Nurse Type: Nursing Progress Note Filed: 12/17/2019 8:16 PM Note Text: Nursing Progress Note Patient Name: Pedro Pablo Sierra Patient Location: [place] [address]/ __ Daily Note:pt AANDOx3, VSS, c/o slight left leg pain, sesation wnl, dressings clean dry and intact, awaiting transport by jb carpenter, call light within reach, bed low and locked with alarms on, no needs at this time 2014 transport here to transport pt to facility, transported by stretcher This note was completed by: Breana Bernal RN [facility] NURSING PROG HNO ID: [id number] Author: Pina NessRn) ОЛЕГ Perez Service: ? Author Type: Registered Nurse Type: Nursing Progress Note Filed: 12/17/2019 11:30 AM Note Text: Nursing Progress Note Patient Name: Pedro Pablo Sierra Patient Location: / __ Daily Note: This note was completed by: Pian Perez RN vss answer questions a/o no c/o cp slight sob at intervals Lungs cl po 91% on Ra. Heparin drip initiated per order. C/o aching and tenderness numbness to left leg left groin has a dressing with slight amt of yellowish drainage noted on wound at groin site. [place] sound bed noted Pedal pulse doppled to left foot. Pain level 8/10 medicated as ordered. Medication therapy continues. [facility] NURSING PROG HNO ID: [id number] Author: Arnulfo NessRn) ОЛЕГ Thapa Service: ? Author Type: Registered Nurse Type: Nursing Progress Note Filed: 12/17/2019 6:44 AM Note Text: Nursing Progress Note Patient Name: Pedro Pablo Sierra Patient Location: -[facility]- __ Transfer Note: Patient transferred into room/unit [facility]26 in stable condition. Actions taken: patient oriented to room and call light. Admission assessment completed. Surgery at bedside speaking with patient. 0600 - waiting for lab to draw in order to begin heparin drip This note was completed by: Arnulfo Thapa RN [facility] PT EDon 12-17-2019 PT ED HNO ID: [id number] Author: Eloisa Oseguera (Pharmacist) Service: Pharmacy Author Type: Pharmacist Type: Patient Education Filed: 12/17/2019 4:15 PM Note Text: PHARMACY WARFARIN EDUCATION Patient Name: Pedro Pablo Sierra Account #: Data Unavailable Admission Date: 12/17/2019 2:59 AM Date of Contact: December 17, 2019 Time of Contact: 2:29 PM Patient new to warfarin? No: Previous (home) dosage: 7.5 mg daily Outpatient follow-up plan: [phone] Indication for warfarin: peripheral artery disease (PAD) Target INR range: 2.0 - 3.0 (Target 2.5) Patient received full warfarin education. Initial patient education included: * Reason for taking warfarin * How warfarin works * What the INR test is, frequency of testing, and the importance of monitoring warfarin with scheduled PT/INR blood draws or finger sticks * Information about plans to monitor warfarin post-discharge was reviewed * When to take warfarin and what to do if a dose is missed * Identifying tablet(s) and to notify the doctor/anticoagulation clinic if there is a change in tablet color, shape, or markings * Drug interactions (Rx, OTC, herbal) and importance of notifying the doctor/anticoagulation clinic with any changes. * Do not take or discontinue any medication or over the counter medication except on the advice of the physician or pharmacist because certain medications can affect the PT/INR. * Potential duration of therapy * Signs/symptoms of bleeding and what to do if they occur because warfarin increases the risk of bleeding * Precautionary measures to decrease trauma/bleeding * Signs/symptoms of thrombosis and what to do if they occur * Need to limit or avoid EtOH consumption * Dietary considerations discussing that a ?consistent amount? of foods with vitamin K rather than avoidances should be advised and to avoid major changes in dietary habits, or notify health professional before changing habits because diet can affect the PT/INR * Carrying identification * Importance of notifying healthcare provider and [facility] when hospitalizations occur and when another healthcare provider has asked them to stop/hold warfarin before any procedure * Importance of notifying all healthcare providers they are taking warfarin * Use of control measures if applicable * The importance of taking warfarin as instructed and the potential ramifications of non- compliance were explained to the patient. The patient was provided ?Understanding the Anticoagulant Medication Warfarin? education booklet which includes the following : compliance Issues, dietary advice, follow-up with physician, follow- up monitoring, potential adverse drug reactions and interactions. READINESS TO LEARN COGNITIVE ABILITY: Alert and oriented MOTIVATION TO LEARN: Interested FAMILY SUPPORT: Unable to assess - Family not present INSTRUCTION PROVIDED TO: Patient PATIENT LEARNS BEST BY: Individual Instruction Written Instruction - Hand-outs Verbal Instruction Demonstration Multiple Methods FACTORS AFFECTING LEARNING: None PHYSICAL LIMITATIONS AFFECTING LEARNING: None LEARNING RESPONSE DIAGNOSIS: SEE INDICATION(S) ABOVE PATIENT/FAMILY RESPONSE: Verbalizes understanding of: The signs and symptoms of a worsening condition that warrant a call to the physician. The correct actions to take to manage symptoms associated with his/her disease/illness. The physical restrictions and recommendations after discharge from the hospital. The correct action to take if medication dose is missed. The side effects associated with the medication that warrant a call to the physician. METHOD OF INSTRUCTION: Teach Back yes SUPPLEMENTAL MATERIAL PROVIDED: Warfarin booklet: FURTHER RECOMMENDATIONS (if any) No further recommendations EVIDENCE OF LEARNING Outcomes met: Indicates understanding of topic Outpatient Follow-up: [facility] Yeimi Nolasco (Composition Molder) Preceptor Addendum: The above case has been reviewed and discussed with the parts data writer. I agree with the assessment/plan described. Changes and additions to the details in the above note are indicated by italics and . ELOISA OSEGUERA, PHARMACIST Normal [facility] Phosphoruson 12-17-2019 Phosphate [Mass/Vol] 3.4 mg/dL Normal 2.5-4.5 [facility] Comment on above: Performed By: #### C BCDIF, CMP, MG1, PHOS, PT, PTT ####[place] [id number] [place], [place] [phone] Protimeon 12-17-2019 PT Coag (PPP) [Time] 16.8 s High 9.7-13.0 [facility] Comment on above: Performed By: #### C BCDIF, CMP, MG1, PHOS, PT, PTT ####[address] [phone] PT Coag (PPP) [Time] 1.6 s High 0.9-1.3 [facility] Comment on above: Result Comment: Teri min K Antagonist (VKA) Therapeutic Range: INR 2 to 3 (Target INR of 2.5) Note: For patients treated with VKA drugs, such as warfarin, the [place] [employer] 2012 Guideline recommends [...] to 3.5 (target INR of 3). Jael GH, et al. Chest 2012, 141:7S-47S Gio RA, et al. [facility] 2017, 70: 252-289 Performed By: #### C BCDIF, CMP, MG1, PHOS, PT, PTT ####[place] [id number] [place], [place] [phone] Type and Screenon 12-17-2019 ABO/RH(D) Positive Normal [facility] Comment on above: Performed By: #### T SCR ####[facility] [place], [place] [phone] Basic Metabolic Panlon 10-24 Anion gap [Moles/Vol] 11 mmol/L Normal 9-18 [facility] Comment on above: Performed By: #### C BC, BMP ####[place] [phone] Calcium [Mass/Vol] 8.4 mg/dL Low 8.5-10.5 [facility] Comment on above: Performed By: #### C BC, BMP ####[phone] Chloride [Moles/Vol] 101 mmol/L Normal 98-110 [facility] Comment on above: Performed By: #### C BC, BMP ####[place] [phone] CO2 [Moles/Vol] 27 mmol/L Normal 23-32 [facility] Comment on above: Performed By: #### C BC, BMP ####[place] [phone] Creatinine [Mass/Vol] 0.80 mg/dL Normal 0.70-1.40 [facility] Comment on above: Performed By: #### C BC, BMP ####[place] [phone] eGFR- Amer. >60 Normal >60 [facility] Comment on above: Performed By: #### C BC, BMP ####[place] [phone] GFR/1.73 sq M predicted among non-blacks MDRD (S/P/Bld) [Vol rate/Area] mL/min/{1.73_m2} Normal >60 [facility] Comment on above: Performed By: #### C BC, BMP ####[place] [phone] Glucose [Mass/Vol] 111 mg/dL High 65-100 [facility] Comment on above: Performed By: #### C BC, BMP ####[place] [phone] Potassium [Moles/Vol] 4.6 mmol/L Normal 3.5-5.0 [facility] Comment on above: Performed By: #### C LARRY, BMP ####[facility] [place], [place] [phone] Sodium [Moles/Vol] 139 mmol/L Normal 135-146 [facility] Comment on above: Performed By: #### C LARRY, BMP ####[place] [id number] [place], [place] [phone] Urea nitrogen [Mass/Vol] 19 mg/dL Normal 10-25 [facility] Comment on above: Performed By: #### C LARRY, BMP ####[place] [id number] [place], [place] [phone] CASE MANAGEMon 10-25-2019 CASE MANAGEM HNO ID: [id number] Author: Sybil Lima (Sw) Service: Case Management Author Type: Flight Line Service Attendant Type: Care Mgt Progress Note Filed: 10/25/2019 3:40 PM Note Text: CARE MANAGEMENT DISCHARGE NOTE SERVICE DATE: 10/25/2019 SERVICE TIME: 3:30 LOS: 7 days Admission Date: 10/17/2019 DISCHARGE ARRANGEMENT (list agency and phone number) Discharge Arrangement: custodial facility Was an expedited discharge program used?: No Provider Name: [facility] CAREGIVER ASSESSMENT: Caregiver is ready, willing and able to meet the patient's needs as recommended by the inter-professional team:: No Does the patient have an acute stroke diagnosis, or has the patient had a stroke during this admission?: No Patient's transition needs and plan for meeting these needs: SNF HANDOFF COMMUNICATION: Handoff to: Primary Care Physician Primary Care Physician Name/Phone: Daija Morton [phone] TRANSPORTATION ARRANGEMENTS: Transportation Arrangements: Ambulance/[place]lette Transportation Agency and Phone #:: [facility] [phone] Type of Service: BLS Non-emergency Is Patient Medicaid Pending?: No Discussion of financial coverage occurred with: Patient C Wpf Developer Location: [place] Destination: [facility] SNF Financial Care Management Responsibility: None ADDITIONAL CONTACT RESOURCES: MIKI spoke with ex- Teressa Akhtar at [facility] and LVM for Stella at [facility]. Discharge Information Row Name Admission (Current) from 10/17/[address] [facility] services Manager Entry Name Liseth ([facility]) Notes Receives meals, emergency Health line, HHC for SN/PT/OT svcs; Please update with information once discharged. Transportation Arrangements: Ambulance/[facility] Transportation Agency and Phone #:: [facility] [phone] Type of Service: BLS Non-emergency Is Patient Medicaid Pending?: No Discussion of financial coverage occurred with: Patient C Wpf Developer Location: [place] Destination: [facility] Financial Care Management Responsibility: None IMM Follow Up Copy Given: Yes Copy given to:: Patient Apprenticeship Representative Name/Relationship: patient and POA/ex- Joseph Method: In Person SIGNATURE: SHANE Mcelroy PATIENT NAME: Pedro Pablo Sierra DATE: October 25, 2019 TIME: 3:38 PM PAGER/CONTACT #: [phone] Normal [facility] CBCon 10-25-2019 Erythrocyte distribution width (RBC) [Ratio] 16.4 % High 11.5-15.0 [facility] Comment on above: Performed By: #### C LARRY, BMP ####[place] [id number] [place] [phone] Hematocrit (Bld) [Volume fraction] 31.4 % Low 39.0-51.0 [facility] Comment on above: Performed By: #### C LARRY, BMP ####[place] [id number] [place], [place] [phone] Hemoglobin (Bld) [Mass/Vol] 9.6 g/dL Low 13.0-17.0 [facility] Comment on above: Performed By: #### C BC, BMP ####[place] [phone] MCH (RBC) [Entitic mass] 29.4 pG Normal 26.0-34.0 [facility] Comment on above: Performed By: #### C BC, BMP ####[place] [phone] MCHC (RBC) [Mass/Vol] 30.6 g/dL Normal 30.5-36.0 [facility] Comment on above: Performed By: #### C BC, BMP ####[address] [phone] MCV (RBC) [Entitic vol] 96.3 fL Normal 80.0-100.0 [facility] Comment on above: Performed By: #### C BC, BMP ####[address] [phone] Platelet mean volume (Bld) [Entitic vol] 9.2 fL Normal 9.0-12.7 [facility] Comment on above: Performed By: #### C BC, BMP ####[address] [phone] Platelets (Bld) [#/Vol] 672 10*3/uL High 150-400 [facility] Comment on above: Performed By: #### C BC, BMP ####[address] [phone] RBC (Bld) [#/Vol] 3.26 10*6/uL Low 4.20-6.00 [facility] Comment on above: Performed By: #### C BC, BMP ####[address] [phone] WBC (Bld) [#/Vol] 5.27 10*3/uL Normal 3.70-11.00 [facility] Comment on above: Performed By: #### C BC, BMP ####[address] [phone] CONSULT PROGon 10-25-2019 CONSULT PROG HNO ID: [id number] Author: Josefa Garza Service: Pain Management Author Type: Physician National Van Owner Operator Type: Consult Progress Note Filed: 10/25/2019 12:48 PM Note Text: Acute Pain Management Service SERVICE DATE: 10/25/2019 SERVICE TIME: 11:45 AM Service requesting consult?: Vascular Opinion/advice regarding: post op pain ASSESSMENT : This is a 69 year old male h/o CAD c/b [place], HTN, COPD, DM, seizure disorder s/p multiple LLE procedure who is now POD # 7 s/p Left groin exploration, hematoma evacuation, debridement of soft tissues, washout; Sarotorius flap, wound vac placement. Mr. Sierra is soundly sleeping. Dicussed case with RN and no issues. Plan: 1. Continue Acetaminophen 1000 mg PO Q 6 h while inpatient, switch to PRN at time of discharge 2. Continue Gabapentin 300 mg BID, and Gabapentin 600 mg QHS 3. Continue Oxycodone 5-10 mg PO Q 4 H PRN for moderate to severe pain (5-7 days titrate to off) 4. Continue Lidoderm patch X 2 to L thigh (change to PRN at time of discharge) 5. Continue Zanaflex 2 mg PO TID for muscle spasms (w/ Holding parameters) (5-7 days, may change to PRN at time of discharge) 6. Continue bowel regimen as long as taking opioids The plan was discussed in detail with patient +/- family, bedside RN, APMS staff and primary service, who expressed agreement, understanding and comfort with the plan. APMS will sign off and defer further management to primary team. If pain worsens or difficulties arise please reconsult APMS. Thank you for including us in his care. SUBJECTIVE CHIEF COMPLAINT: post op pain HPI: 69 year old male h/o CAD c/b [place], HTN, COPD, DM, seizure disorder s/p multiple LLE procedure who is now POD # 7 s/p Left groin exploration, hematoma evacuation, debridement of soft tissues, washout; Sarotorius flap, wound vac placement. Location of pain: Surgical site Other locations of pain: No Pain score at rest: 9 - however he appears comfortable Pain score with movement (cough, deep breathe, ambulation, etc): 9 Character: severe Duration: intermittent Radiation: No Relieved: Yes - IV Pain medications and PO Pain medications Allergies: ALLERGIES No Known Allergies Current Hospital Medications Current Facility-Administered Medications Medication Dose Route Frequency - atorvastatin 40 mg tab(s) (LIPITOR) 40 mg ORAL DAILY - finasteride 5 mg tab(s) (PROSCAR) 5 mg ORAL DAILY - tamsulosin ER 0.4 mg cap(s) (FLOMAX) 0.4 mg ORAL DAILY - albuterol 2.5 mg /3 mL (0.083 %) 2.5 mg (PROVENTIL) 2.5 mg INHALATION q 6 H PRN - metoprolol tartrate (short acting) 25 mg tab(s) (LOPRESSOR) 25 mg ORAL BID - pantoprazole DR 40 mg tab(s) (PROTONIX) 40 mg ORAL DAILY (6 AM) - sertraline 100 mg tab(s) (ZOLOFT) 100 mg ORAL DAILY - NaCl 0.9% 3-5 mL 3-5 mL INTRAVENOUS q 12 H - ondansetron 4 mg tab(s) (ZOFRAN) 4 mg ORAL q 6 H PRN Or - ondansetron (PF) 4 mg injection (ZOFRAN) 4 mg INTRAVENOUS q 6 H PRN - nicotine 21 mg/24 hr 1 Patch (NICODERM) 1 Patch TRANSDERMAL DAILY And - nicotine -- REMOVE patch OTHER DAILY And - nicotine - verify patch OTHER q 8 H - oxyCODONE IR 5-10 mg tab(s) (ROXICODONE) 5-10 mg ORAL q 4 H PRN - budesonide 0.25 mg/2 mL 0.25 mg (PULMICORT) 0.25 mg INHALATION BID And - ipratropium-albuterol 3 mL nebulizer solution (DUONEB) 3 mL INHALATION QID - mirtazapine 15 mg (REMERON) 15 mg ORAL AT BEDTIME - senna 8.6 mg tab(s) (SENOKOT) 8.6 mg ORAL AT BEDTIME - piperacillin-tazobacta m iv piggyback 3.375 g in dextrose (iso-osmotic) 50 mL (ZOSYN) 3.375 g INTRAVENOUS q 6 H - acetaminophen 1,000 mg tab(s) (TYLENOL) 1,000 mg ORAL q 6 H - amLODIPine 5 mg tab(s) (NORVASC) 5 mg ORAL DAILY - carBAMazepine XR 200 mg tab(s) (TEGretol XR) 200 mg ORAL BID - dicyclomine 20 mg tab(s) (BENTYL) 20 mg ORAL TID w MEALS - docusate sodium 100 mg cap(s) (COLACE) 100 mg ORAL BID - heparin iv infusion (LOW DOSE ACS/NOMOGRAM) 25,000 units in NaCl 0.45% 250 mL PREMIX 0-3,000 Units/hr INTRAVENOUS CONTINUOUS And - heparin RATE CHANGE bolus 1,000-4,000 Units for subtherapeutic aptt results 1,000-4,000 Units INTRAVENOUS PRN - benzonatate 100 mg cap(s) (TESSALON PERLE) 100 mg ORAL TID PRN - clopidogrel 75 mg tab(s) (PLAVIX) 75 mg ORAL DAILY - NaCl 0.9% 10 mL 10 mL INTRAVENOUS q 12 H - NaCl 0.9% 20 mL 20 mL INTRAVENOUS PRN - warfarin dose per INR - Call physician daily for dose ORAL DAILY - WARFARIN - lidocaine 2 % (XYLOCAINE) MUCOUS MEMBRANE -WE-FR - gabapentin 600 mg cap(s) (NEURONTIN) 600 mg ORAL AT BEDTIME - gabapentin 300 mg cap(s) (NEURONTIN) 300 mg ORAL BID /4p - tiZANidine 2 mg tab(s) (ZANAFLEX) 2 mg ORAL TID - lidocaine 4 % 2 Patch (SALONPAS) 2 Patch TRANSDERMAL DAILY And - lidocaine patch - REMOVE OTHER AT BEDTIME And - lidocaine - VERIFY PATCH OTHER q 8 H - warfarin (COUMADIN) tab(s) 7.5 mg 7.5 mg ORAL ONCE - WARFARIN - enoxaparin 80 mg injection (LOVENOX) 1 mg/kg/dose SUBCUTANEOUS q 12 HR OBJECTIVE: Physical Exam BP 126/59 Pulse 70 Temp 36.4 ?C (97.6 ?F) (Oral) Resp 18 Ht 172.7 cm (5' 8) Wt 80.2 kg (176 lb 12.9 oz) SpO2 93% BMI 26.88 kg/m? Affect: awake, alert and oriented General Impression: appears comfortable Surgical site exam: clean, mildly tender to touch and with VAC dressing intact Neurologic Exam: Sensory exam: intact Motor Exam: LLE groin with VAC dressing, decrease movement d/t pain Respiratory Exam: Respirations: Breathing appears normal Thoracostomy tube:No Gastrointestinal Exam: Bowel sounds: Yes Nasogastric tube: No Lab Data Component Latest Ref Rng AND Units 10/25/2019 BUN 10 - 25 mg/dL 19 Creatinine 0.70 - 1.40 mg/dL 0.80 Sodium 135 - 146 mmol/L 139 Potassium 3.5 - 5.0 mmol/L 4.6 Chloride 98 - 110 mmol/L 101 CO2 23 - 32 mmol/L 27 Anion Gap 9 - 18 mmol/L 11 Calcium 8.5 - 10.5 mg/dL 8.4 (L) eGFR- >60 >60 eGFR-All Other Races >60 . >60 Component Latest Ref Rng AND Units 10/25/2019 WBC 3.70 - 11.00 k/uL 5.27 RBC 4.20 - 6.00 m/uL 3.26 (L) Hemoglobin 13.0 - 17.0 g/dL 9.6 (L) Hematocrit 39.0 - 51.0 % 31.4 (L) MCV 80.0 - 100.0 fL 96.3 MCH 26.0 - 34.0 pG 29.4 MCHC 30.5 - 36.0 g/dL 30.6 RDW-CV 11.5 - 15.0 % 16.4 (H) Platelet Count 150 - 400 k/uL 672 (H) MPV 9.0 - 12.7 fL 9.2 SIGNATURE: Josefa Garza PA-C PATIENT NAME: Pedro Pablo Sierra DATE: October 25, 2019 TIME: 12:48 PM PAGER/CONTACT #: [facility] [phone] [facility] NURSING PROGon 10-25-2019 NURSING PROG HNO ID: [id number] Author: Maryan Hutchison) ОЛЕГ Pearson Service: Nursing Author Type: Registered Nurse Type: Nursing Progress Note Filed: 10/25/2019 7:02 PM Note Text: Nursing Progress Note Patient Name: Pedro Pablo Sierra Patient Location: [place] [address] __ Daily Note: 1900 Report called to [facility]. This note was completed by: Maryan Pearson RN [facility] PROGRESSon 10-25-2019 PROGRESS HNO ID: [id number] Author: Juliana Oden (Pa) Service: Vascular Surgery Author Type: Physician National Van Owner Operator Type: Progress Notes Filed: 10/25/2019 2:27 PM Note Text: [facility] POSTOP PROGRESS NOTE Service Date: 10/25/2019Admit Date: 10/17/2019Service Time: 1400 LOS: 7 day(s) Primary Service: Vascular Surgery Vascular Physician: Lesly Lopez MD Interval Events/Issues: No events. PT/OT recommend SNF. Tolerating diet. + BM. Pain controlled. No CP/SOB. INR 1.3. MAMIE output 8 cc. IV Zosyn for 4 weeks post-op per ID recommendations. Subjective Current Facility-Administered Medications Medication Dose Route Frequency - atorvastatin 40 mg tab(s) (LIPITOR) 40 mg ORAL DAILY - finasteride 5 mg tab(s) (PROSCAR) 5 mg ORAL DAILY - tamsulosin ER 0.4 mg cap(s) (FLOMAX) 0.4 mg ORAL DAILY - albuterol 2.5 mg /3 mL (0.083 %) 2.5 mg (PROVENTIL) 2.5 mg INHALATION q 6 H PRN - metoprolol tartrate (short acting) 25 mg tab(s) (LOPRESSOR) 25 mg ORAL BID - pantoprazole DR 40 mg tab(s) (PROTONIX) 40 mg ORAL DAILY (6 AM) - sertraline 100 mg tab(s) (ZOLOFT) 100 mg ORAL DAILY - NaCl 0.9% 3-5 mL 3-5 mL INTRAVENOUS q 12 H - ondansetron 4 mg tab(s) (ZOFRAN) 4 mg ORAL q 6 H PRN Or - ondansetron (PF) 4 mg injection (ZOFRAN) 4 mg INTRAVENOUS q 6 H PRN - nicotine 21 mg/24 hr 1 Patch (NICODERM) 1 Patch TRANSDERMAL DAILY And - nicotine -- REMOVE patch OTHER DAILY And - nicotine - verify patch OTHER q 8 H - oxyCODONE IR 5-10 mg tab(s) (ROXICODONE) 5-10 mg ORAL q 4 H PRN - budesonide 0.25 mg/2 mL 0.25 mg (PULMICORT) 0.25 mg INHALATION BID And - ipratropium-albuterol 3 mL nebulizer solution (DUONEB) 3 mL INHALATION QID - mirtazapine 15 mg (REMERON) 15 mg ORAL AT BEDTIME - senna 8.6 mg tab(s) (SENOKOT) 8.6 mg ORAL AT BEDTIME - piperacillin-tazobacta m iv piggyback 3.375 g in dextrose (iso-osmotic) 50 mL (ZOSYN) 3.375 g INTRAVENOUS q 6 H - acetaminophen 1,000 mg tab(s) (TYLENOL) 1,000 mg ORAL q 6 H - amLODIPine 5 mg tab(s) (NORVASC) 5 mg ORAL DAILY - carBAMazepine XR 200 mg tab(s) (TEGretol XR) 200 mg ORAL BID - dicyclomine 20 mg tab(s) (BENTYL) 20 mg ORAL TID w MEALS - docusate sodium 100 mg cap(s) (COLACE) 100 mg ORAL BID - benzonatate 100 mg cap(s) (TESSALON PERLE) 100 mg ORAL TID PRN - clopidogrel 75 mg tab(s) (PLAVIX) 75 mg ORAL DAILY - NaCl 0.9% 10 mL 10 mL INTRAVENOUS q 12 H - NaCl 0.9% 20 mL 20 mL INTRAVENOUS PRN - warfarin dose per INR - Call physician daily for dose ORAL DAILY - WARFARIN - lidocaine 2 % (XYLOCAINE) MUCOUS MEMBRANE MO-WE-FR - gabapentin 600 mg cap(s) (NEURONTIN) 600 mg ORAL AT BEDTIME - gabapentin 300 mg cap(s) (NEURONTIN) 300 mg ORAL BID /4p - tiZANidine 2 mg tab(s) (ZANAFLEX) 2 mg ORAL TID - lidocaine 4 % 2 Patch (SALONPAS) 2 Patch TRANSDERMAL DAILY And - lidocaine patch - REMOVE OTHER AT BEDTIME And - lidocaine - VERIFY PATCH OTHER q 8 H - warfarin (COUMADIN) tab(s) 7.5 mg 7.5 mg ORAL ONCE - WARFARIN - enoxaparin 80 mg injection (LOVENOX) 1 mg/kg/dose SUBCUTANEOUS q 12 HR Medication and Non-Pharmacologic VTE Prophylaxis/Anticoagul ants Anticoagulant AND Antiplatelet Medications (From admission, onward) Start Dose Route Frequency Ordered Stop 10/25/19 1700 warfarin (COUMADIN) tab(s) 7.5 mg 7.5 mg ORAL ONCE - WARFARIN 10/25/19 0727 10/26/19 0459 10/25/19 0900 enoxaparin 80 mg injection (LOVENOX) 1 mg/kg/dose SUBCUTANEOUS EVERY 12 HOURS 10/25/19 0809 -- 10/21/19 1200 clopidogrel 75 mg tab(s) (PLAVIX) 75 mg ORAL DAILY 10/21/19 1144 -- 10/24/19 0830 activity - mobilize patient (nc,oh) 10/17/19 0215 vte current anticoag therapy (nc,oh) 10/17/19 021 pneumatic compression stockings (nc,oh) VTE Prophylaxis: Not indicated due to therapeutic AC ALLERGIES No Known Allergies Objective PHYSICAL EXAM: Patient Vitals for the past 24 hrs: BP Temp Temp src Pulse Resp SpO2 10/25/19 1129 (!) 127/45 36.9 ?C (98.5 ?F) Oral 73 17 89 % 10/25/19 1107 ? ? ? 71 18 ? 10/25/19 1056 ? ? ? 71 18 90 % 10/25/19 0726 126/59 36.4 ?C (97.6 ?F) Oral 70 18 93 % 10/25/19 0400 126/55 37.1 ?C (98.8 ?F) Oral 65 14 93 % 10/24/19 2311 129/59 36.7 ?C (98 ?F) Oral 71 16 94 % 10/24/192107 ? ? ? 82 18 97 % 10/24/192057 ? ? ? 73 18 89 % 10/24/192019 122/54 36.8 ?C (98.2 ?F) Oral 75 18 92 % 10/24/19 1652 121/69 36.6 ?C (97.9 ?F) Oral 72 16 93 % 10/24/19 1544 ? ? ? 73 18 92 % 10/24/19 1532 ? ? ? 70 16 (!) 87 % Intake/Output Summary (Last 24 hours) at 10/25/2019 1413 Last data filed at 10/25/2019 0825 Gross per 24 hour Intake ? Output 1958 ml Net -1958 ml CONSTITUTIONAL: Well developed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 RETROPERITONEAL HEMATOMA IDENTIFIED, 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 ?NO EVIDENCE FOR ACTIVE EXTRAVASATION. ?MODERATE DIFFUSE ATHEROSCLEROTIC DISEASE, WITH PATENCY OF THE RIGHT ANTERIOR AND POSTERIOR TIBIAL ARTERIES INTO THE FOOT, PATENT TO THE RIGHT PERONEAL ARTERY TO THE ANKLE, THEN ANASTOMOSING ANTERIORLY. ?PATENCY OF THE LEFT ANTERIOR TIBIAL ARTERY INTO THE FOOT THE DOMINANT VESSEL, AND TO A LESSER DEGREE THE LEFT PERONEAL ARTERY, AND ALTHOUGH THE LEFT POSTERIOR TIBIAL ARTERIES IDENTIFIED, IS MARKEDLY DIMINUTIVE IN CALIBER, HOWEVER VISUALIZED INTO THE FOOT. SIGNATURE: Marie Worley APRN.CNP PATIENT NAME: Pedro Pablo Sierra DATE: October 23, 2019 TIME: 12:32 PM PAGER/CONTACT #: [phone] [facility] CONSULT PROGon 10-23-2019 CONSULT PROG HNO ID: [id number] Author: Huong Rashid V Service: Infectious Disease Author Type: Physician Type: Consult Progress Note Filed: 10/23/2019 2:00 PM Note Text: CONSULT PROGRESS NOTE SERVICE DATE: 10/23/2019 SERVICE TIME: 1:52 PM CONSULTING SERVICE: Infectious Diseases Subjective INTERVAL HPI: Current Facility-Administered Medications Medication Dose Route Frequency - gabapentin 300 mg cap(s) (NEURONTIN) 300 mg ORAL BID - atorvastatin 40 mg tab(s) (LIPITOR) 40 mg ORAL DAILY - finasteride 5 mg tab(s) (PROSCAR) 5 mg ORAL DAILY - tamsulosin ER 0.4 mg cap(s) (FLOMAX) 0.4 mg ORAL DAILY - albuterol 2.5 mg /3 mL (0.083 %) 2.5 mg (PROVENTIL) 2.5 mg INHALATION q 6 H PRN - metoprolol tartrate (short acting) 25 mg tab(s) (LOPRESSOR) 25 mg ORAL BID - pantoprazole DR 40 mg tab(s) (PROTONIX) 40 mg ORAL DAILY (6 AM) - sertraline 100 mg tab(s) (ZOLOFT) 100 mg ORAL DAILY - NaCl 0.9% 3-5 mL 3-5 mL INTRAVENOUS q 12 H - ondansetron 4 mg tab(s) (ZOFRAN) 4 mg ORAL q 6 H PRN Or - ondansetron (PF) 4 mg injection (ZOFRAN) 4 mg INTRAVENOUS q 6 H PRN - nicotine 21 mg/24 hr 1 Patch (NICODERM) 1 Patch TRANSDERMAL DAILY And - nicotine -- REMOVE patch OTHER DAILY And - nicotine - verify patch OTHER q 8 H - oxyCODONE IR 5-10 mg tab(s) (ROXICODONE) 5-10 mg ORAL q 4 H PRN - HYDROmorphone 0.2 mg injection (DILAUDID) 0.2 mg INTRAVENOUS q 4 H PRN - budesonide 0.25 mg/2 mL 0.25 mg (PULMICORT) 0.25 mg INHALATION BID And - ipratropium-albuterol 3 mL nebulizer solution (DUONEB) 3 mL INHALATION QID - mirtazapine 15 mg (REMERON) 15 mg ORAL AT BEDTIME - senna 8.6 mg tab(s) (SENOKOT) 8.6 mg ORAL AT BEDTIME - piperacillin-tazobacta m iv piggyback 3.375 g in dextrose (iso-osmotic) 50 mL (ZOSYN) 3.375 g INTRAVENOUS q 6 H - acetaminophen 1,000 mg tab(s) (TYLENOL) 1,000 mg ORAL q 6 H - amLODIPine 5 mg tab(s) (NORVASC) 5 mg ORAL DAILY - carBAMazepine XR 200 mg tab(s) (TEGretol XR) 200 mg ORAL BID - dicyclomine 20 mg tab(s) (BENTYL) 20 mg ORAL TID w MEALS - NaCl 0.9% iv infusion 30 mL/hr INTRAVENOUS CONTINUOUS - docusate sodium 100 mg cap(s) (COLACE) 100 mg ORAL BID - heparin iv infusion (LOW DOSE ACS/NOMOGRAM) 25,000 units in NaCl 0.45% 250 mL PREMIX 0-3,000 Units/hr INTRAVENOUS CONTINUOUS And - heparin RATE CHANGE bolus 1,000-4,000 Units for subtherapeutic aptt results 1,000-4,000 Units INTRAVENOUS PRN - benzonatate 100 mg cap(s) (TESSALON PERLE) 100 mg ORAL TID PRN - clopidogrel 75 mg tab(s) (PLAVIX) 75 mg ORAL DAILY - NaCl 0.9% 10 mL 10 mL INTRAVENOUS q 12 H - NaCl 0.9% 20 mL 20 mL INTRAVENOUS PRN - warfarin dose per INR - Call physician daily for dose ORAL DAILY - WARFARIN - warfarin 5 mg tab(s) (COUMADIN) 5 mg ORAL ONCE - WARFARIN - lidocaine 2 % (XYLOCAINE) MUCOUS MEMBRANE MO-WE- Objective PHYSICAL EXAM: Physical Exam Performed: GENERAL: Alert, no distress, cooperative WOUND: I was present at the time of from dressing change, wound VAC removed, the deep wound appears very healthy pink granulation tissue and no significant purulent drainage. BP 132/65 Pulse 65 Temp (Src) 97.8 (Oral) Resp 18 Ht 5' 8 (1.73m) Wt 176 lb 12.9 oz (80.2kg) SpO2 92% BMI 26.89 kg/(m2). O2 Therapy: Nasal Cannula, Liters: 2 DATA: Diagnostic tests reviewed for today's visit: Most recent labs and imaging results. Impression/Recommendat ions Active Problems: Left groin surgical site infection Post Left EIA to TELEVISION REPORTER bypass with 7mm ringed PTFE end to end proximally to the previously placed bovine patch end to side distally. Retrograde open RADHA angioplasty with 8 x 80 mustang balloon.Open thrombectomy L iliac artery by leg incision. s/p excisional ?debridement ?of necrotic skin, subcutaneous ?tissue, ?and ?fascia of left groin, Wound VAC placement, Sartorius ?muscle ?flap ?placement ? currently receiving intravenous Zosyn.has a PICC line in place, suggest to continue intravenous Zosyn for a period of 4 weeks postop. SIGNATURE: Huong Rashid MD PATIENT NAME: Pedro Pablo Sierra DATE: October 23, 2019 TIME: 1:52 PM PAGER: [facility] NURSING PROGon 10-23-2019 NURSING PROG HNO ID: [id number] Author: Kaye (Rn) ОЛЕГ Alcala Service: ? Author Type: Registered Nurse Type: Nursing Progress Note Filed: 10/23/2019 10:54 AM Note Text: Nursing Progress Note Patient Name: Pedro Pablo Sierra Patient Location: [place] [address] [address] __ Daily Note:has good pulses with doppler. wound vac dressing intact. told pt that I would be back to change it about 1130, states that doctors have been chaging it. heparin qtt infusing nest aptt due at 1200. call light in reach This note was completed by: Kaye Alcala RN [facility] NURSING PROG HNO ID: [id number] Author: Amy (Rn) ОЛЕГ Keyes Service: Nursing Author Type: Registered Nurse Type: Nursing Progress Note Filed: 10/23/2019 2:23 AM Note Text: 2039: aPTT drawn. 2140: aPTT 38.2. Heparin changed from 1400 units/hr to 1600 units/hr. Bolus dose given- 2400 units/hr. To collect aPTT again at 0345. [facility] PROGRESSon 10-23-2019 PROGRESS HNO ID: [id number] Author: Anum Alvarez (Res) Ginna Service: Vascular Surgery Author Type: Resident Type: Progress Notes Filed: 10/23/2019 10:29 AM Note Text: [facility]ULAR [facility] POSTOP PROGRESS NOTE Service Date: 10/23/2019Admit Date: 10/17/2019Service Time: 6:52 AM LOS: 5 day(s) Primary Service: Vascular Surgery Vascular Physician: Lesly Lopez MD Interval Events/Issues: No acute events overnight Wound VAC working appropriately Pain is controlled appropriately MAMIE 25 Subjective Current Facility-Administered Medications Medication Dose Route Frequency - gabapentin 300 mg cap(s) (NEURONTIN) 300 mg ORAL BID - atorvastatin 40 mg tab(s) (LIPITOR) 40 mg ORAL DAILY - finasteride 5 mg tab(s) (PROSCAR) 5 mg ORAL DAILY - tamsulosin ER 0.4 mg cap(s) (FLOMAX) 0.4 mg ORAL DAILY - albuterol 2.5 mg /3 mL (0.083 %) 2.5 mg (PROVENTIL) 2.5 mg INHALATION q 6 H PRN - metoprolol tartrate (short acting) 25 mg tab(s) (LOPRESSOR) 25 mg ORAL BID - pantoprazole DR 40 mg tab(s) (PROTONIX) 40 mg ORAL DAILY (6 AM) - sertraline 100 mg tab(s) (ZOLOFT) 100 mg ORAL DAILY - NaCl 0.9% 3-5 mL 3-5 mL INTRAVENOUS q 12 H - ondansetron 4 mg tab(s) (ZOFRAN) 4 mg ORAL q 6 H PRN Or - ondansetron (PF) 4 mg injection (ZOFRAN) 4 mg INTRAVENOUS q 6 H PRN - nicotine 21 mg/24 hr 1 Patch (NICODERM) 1 Patch TRANSDERMAL DAILY And - nicotine -- REMOVE patch OTHER DAILY And - nicotine - verify patch OTHER q 8 H - oxyCODONE IR 5-10 mg tab(s) (ROXICODONE) 5-10 mg ORAL q 4 H PRN - HYDROmorphone 0.2 mg injection (DILAUDID) 0.2 mg INTRAVENOUS q 4 H PRN - budesonide 0.25 mg/2 mL 0.25 mg (PULMICORT) 0.25 mg INHALATION BID And - ipratropium-albuterol 3 mL nebulizer solution (DUONEB) 3 mL INHALATION QID - mirtazapine 15 mg (REMERON) 15 mg ORAL AT BEDTIME - senna 8.6 mg tab(s) (SENOKOT) 8.6 mg ORAL AT BEDTIME - piperacillin-tazobacta m iv piggyback 3.375 g in dextrose (iso-osmotic) 50 mL (ZOSYN) 3.375 g INTRAVENOUS q 6 H - acetaminophen 1,000 mg tab(s) (TYLENOL) 1,000 mg ORAL q 6 H - amLODIPine 5 mg tab(s) (NORVASC) 5 mg ORAL DAILY - carBAMazepine XR 200 mg tab(s) (TEGretol XR) 200 mg ORAL BID - dicyclomine 20 mg tab(s) (BENTYL) 20 mg ORAL TID w MEALS - NaCl 0.9% iv infusion 30 mL/hr INTRAVENOUS CONTINUOUS - docusate sodium 100 mg cap(s) (COLACE) 100 mg ORAL BID - heparin iv infusion (LOW DOSE ACS/NOMOGRAM) 25,000 units in NaCl 0.45% 250 mL PREMIX 0-3,000 Units/hr INTRAVENOUS CONTINUOUS And - heparin RATE CHANGE bolus 1,000-4,000 Units for subtherapeutic aptt results 1,000-4,000 Units INTRAVENOUS PRN - benzonatate 100 mg cap(s) (TESSALON PERLE) 100 mg ORAL TID PRN - clopidogrel 75 mg tab(s) (PLAVIX) 75 mg ORAL DAILY - NaCl 0.9% 10 mL 10 mL INTRAVENOUS q 12 H - NaCl 0.9% 20 mL 20 mL INTRAVENOUS PRN - warfarin dose per INR - Call physician daily for dose ORAL DAILY - WARFARIN Medication and Non-Pharmacologic VTE Prophylaxis/Anticoagul ants Anticoagulant AND Antiplatelet Medications (From admission, onward) Start Dose Route Frequency Ordered Stop 10/21/19 1200 clopidogrel 75 mg tab(s) (PLAVIX) 75 mg ORAL DAILY 10/21/19 1144 -- 10/20/19 1230 heparin iv infusion (LOW DOSE ACS/NOMOGRAM) 25,000 units in NaCl 0.45% 250 mL PREMIX (Heparin Infusion + Rate Change Bolus) 0-30 mL/hr 0-3,000 Units/hr INTRAVENOUS CONTINUOUS 10/20/19 1213 -- 10/17/19 0215 vte current anticoag therapy ([place], [place]) 10/17/19 0215 pneumatic compression stockings ([place] VTE Prophylaxis: VTE prophylaxis appropriate ALLERGIES No Known Allergies Objective PHYSICAL EXAM: Patient Vitals for the past 24 hrs: BP 139/57 Pulse 60 Temp 36.4 ?C (97.6 ?F) (Oral) Resp 18 Ht 172.7 cm (5' 8) Wt 80.2 kg (176 lb 12.9 oz) SpO2 95% BMI 26.88 kg/m? Intake/Output Summary (Last 24 hours) at 10/23/2019 0745 Last data filed at 10/23/2019 0659 Gross per 24 hour Intake 1250 ml Output 2980 ml Net -1730 ml CONSTITUTIONAL: Well developed and No acute distress NEUROLOGIC/PSYCHIATRIC : Oriented to time, place AND person HEENT: EOM's intact LUNGS: Clear HEART: Regular rate AND rhythm ABDOMEN: Soft INTEGUMENTARY: Wound - No SURGICAL SITES: Groin - left; wound vac in place. No crepitus or obvious infection. MAMIE SS MUSCULOSKELETAL: No deformities Pulses/Signals: biphasic DP/PTS DATA: Laboratory: Recent Labs 10/23/19 0350 10/22/19 0408 10/21/19 0714 WBC 5.08 5.80 6.34 HB 9.4* 9.3* 9.3* HCT 30.8* 31.0* 30.0* PLT 586* 580* 514* Recent Labs 10/23/19 0350 10/22/19 0407 10/21/19 0157 NA 139 138 137 K 4.0 4.3 4.1 BUN 11 13 11 CREAT 0.83 0.92 0.90 GLUC 95 103* 118* Recent Labs 10/23/19 0350 10/22/19 2040 10/22/19 1200 10/22/19 0407 10/20/19 1227 APTT 76.0* 38.2* 25.2 51.5* < > 28.9 INR 1.1 -- -- 1.0 -- 1.0 < > = values in this interval not displayed. Assessment/Plan Impression: Pedro Pablo Sierra is a 69 year old White male referred by Dr. Lopez for an opinion regarding management of L groin incision drainage after recent surgery (listed below). Mr. Sierra underwent left?common femoral endarterectomy with bovine patch, redo.Thrombectomy of the occluded Left RADHA and EIA.Left common and external?iliac stents?(Cast x 2),?(Jessica x 2)?from the origin of the RADHA to the groin on 10/08/19. Two days later, he returned to the OR on 10/10/19 for hematoma evacuation (related to anticoagulants),?Left EIA to TELEVISION REPORTER bypass with 7mm ringed PTFE, retrograde open RADHA angioplasty, and open thrombectomy?of?L iliac artery with extraction of previously placed stent that was crushed and thrombosed. Now admitted with concern for SSI and underwent wound debridement with placement of sartorius flap. Moderate protein calorie malnutrition ? Plan: Continue diet Continue neurovascular checks Bedrest until tomorrow Miralax as needed Continue abx - PICC line placed yesterday Wound vac to suction - MWF changes On plavix and coumadin and monitor CBC (lupus anticoagulant), heparin drip Home tegretol Ator 40 mg, norvasc 5 mg, lopressor Proscar, flomax Gabapentin PPI SIGNATURE: Anum Chacko MD PATIENT NAME: Pedro Pablo Sierra DATE: October 23, 2019 TIME: 7:00 AM PAGER/CONTACT #: [phone] ETX#[id number] Normal [facility] Protimeon 10-23-2019 PT Coag (PPP) [Time] 11.6 s Normal 9.7-13.0 [facility] Comment on above: Performed By: #### C BC, BMP, PT, PTT ####[facility] [place], [place] [phone] PT Coag (PPP) [Time] 1.1 s Normal 0.9-1.3 [facility] Comment on above: Result Comment: Teri min K Antagonist (VKA) Therapeutic Range: INR 2 to 3 (Target INR of 2.5) Note: For patients treated with VKA drugs, such as warfarin, the [place] [employer] 2012 Guideline recommends [...] to 3.5 (target INR of 3). Jael GH, et al. Chest 2012, 141:7S-47S Gio KENNY, et al. [facility] 2017, 70: 252-289 Performed By: #### C BC, BMP, PT, PTT ####[facility] [place], [place] [phone] APTTon 10-22-2019 aPTT Coag (Bld) [Time] 25.2 s Normal 23.0-32.4 [facility] Comment on above: Result Comment: Unfr actionated Heparin Therapeutic Ranges: Standard Heparin Nomogram: 53 to 78 seconds (anti-Xa level of 0.3 to 0.7 U/ml) Low Dose/ACS Nomogram: 49 to 67 seconds (anti-Xa level of 0.2 to 0.5 U/ml) Stroke Treatment Nomogram: 49 to 67 seconds (anti-Xa level of 0.2 to 0.5 U/ml) Note: The APTT therapeutic range has been determined for the current lot of laboratory APTT reagent in use throughout the [facility]. Performed By: #### P TT ####[facility] [place], [place] [phone] aPTT Coag (Bld) [Time] 51.5 s High 23.0-32.4 [facility] Comment on above: Result Comment: Unfr actionated Heparin Therapeutic Ranges: Standard Heparin Nomogram: 53 to 78 seconds (anti-Xa level of 0.3 to 0.7 U/ml) Low Dose/ACS Nomogram: 49 to 67 seconds (anti-Xa level of 0.2 to 0.5 U/ml) Stroke Treatment Nomogram: 49 to 67 seconds (anti-Xa level of 0.2 to 0.5 U/ml) Note: The APTT therapeutic range has been determined for the current lot of laboratory APTT reagent in use throughout the [facility]. Performed By: #### P T, PTT, BMP ####[place] [phone] Basic Metabolic Panlon 10-21 Anion gap [Moles/Vol] 10 mmol/L Normal 9-18 [facility] Comment on above: Performed By: #### P T, PTT, BMP ####[place] [phone] Calcium [Mass/Vol] 9.2 mg/dL Normal 8.5-10.5 [facility] Comment on above: Performed By: #### P T, PTT, BMP ####[place] [phone] Chloride [Moles/Vol] 99 mmol/L Normal 98-110 [facility] Comment on above: Performed By: #### P T, PTT, BMP ####[place] [phone] CO2 [Moles/Vol] 29 mmol/L Normal 23-32 [facility] Comment on above: Performed By: #### P T, PTT, BMP ####[place] [phone] Creatinine [Mass/Vol] 0.92 mg/dL Normal 0.70-1.40 [facility] Comment on above: Performed By: #### P T, PTT, BMP ####[place] [phone] eGFR- Amer. >60 Normal >60 [facility] Comment on above: Performed By: #### P T, PTT, BMP ####[address], [place] [phone] GFR/1.73 sq M predicted among non-blacks MDRD (S/P/Bld) [Vol rate/Area] mL/min/{1.73_m2} Normal >60 [facility] Comment on above: Performed By: #### P T, PTT, BMP ####[place] [phone] Glucose [Mass/Vol] 103 mg/dL High 65-100 [facility] Comment on above: Performed By: #### P T, PTT, BMP ####[place] [phone] Potassium [Moles/Vol] 4.3 mmol/L Normal 3.5-5.0 [facility] Comment on above: Performed By: #### P T, PTT, BMP ####[place] [phone] Sodium [Moles/Vol] 138 mmol/L Normal 135-146 [facility] Comment on above: Performed By: #### P T, PTT, BMP ####[place] [phone] Urea nitrogen [Mass/Vol] 13 mg/dL Normal 10-25 [facility] Comment on above: Performed By: #### P T, PTT, BMP ####[address] [phone] CASE MANAGEMon 10-22-2019 CASE MANAGEM HNO ID: [id number] Author: Sybil Lima (Sw) Service: Case Management Author Type: Flight Line Service Attendant Type: Care Mgt Progress Note Filed: 10/22/2019 3:07 PM Note Text: CARE MANAGEMENT PROGRESS NOTE SERVICE DATE: 10/22/2019 SERVICE TIME: 12:00 LOS: 4 days .MIKI spoke with patient regarding the need for ANKUR and wound vac when discharged. Patient does not want to go to a SNF. Patient states his ex- Joseph [phone], who he states used to be RN, might be willing to assist him at home. She lives a few blocks away. SW left her a message. Await call back. Patient also requested to complete POA forms. SW will complete with patient when SW can return with info from discussion with Joseph. SIGNATURE: SHANE Mcelroy PATIENT NAME: Pedro Pablo Sierra DATE: October 22, 2019 TIME: 3:03 PM PAGER/CONTACT #: [phone] Normal [facility] CBCon 10-22-2019 Erythrocyte distribution width (RBC) [Ratio] 16.9 % High 11.5-15.0 [facility] Comment on above: Performed By: #### C BC ####[place] [phone] Hematocrit (Bld) [Volume fraction] 31.0 % Low 39.0-51.0 [facility] Comment on above: Performed By: #### C BC ####[place] [phone] Hemoglobin (Bld) [Mass/Vol] 9.3 g/dL Low 13.0-17.0 [facility] Comment on above: Performed By: #### C BC ####[place] [phone] MCH (RBC) [Entitic mass] 29.5 pG Normal 26.0-34.0 [facility] Comment on above: Performed By: #### C BC ####[place] [phone] MCHC (RBC) [Mass/Vol] 30.0 g/dL Low 30.5-36.0 [facility] Comment on above: Performed By: #### C BC ####[place] [phone] MCV (RBC) [Entitic vol] 98.4 fL Normal 80.0-100.0 [facility] Comment on above: Performed By: #### C BC ####[place] [phone] Platelet mean volume (Bld) [Entitic vol] 9.4 fL Normal 9.0-12.7 [facility] Comment on above: Performed By: #### C BC ####[facility] [place], [place] [phone] Platelets (Bld) [#/Vol] 580 10*3/uL High 150-400 [facility] Comment on above: Performed By: #### C BC ####[place] [id number] [place], [place] [phone] RBC (Bld) [#/Vol] 3.15 10*6/uL Low 4.20-6.00 [facility] Comment on above: Performed By: #### C BC ####[facility] [place], [place] [phone] WBC (Bld) [#/Vol] 5.80 10*3/uL Normal 3.70-11.00 [facility] Comment on above: Performed By: #### C BC ####[facility] [place], [place] [phone] NURSING PROGon 10-22-2019 NURSING PROG HNO ID: [id number] Author: Cristina Hutchison) Cornelius, ОЛЕГ Service: ? Author Type: Registered Nurse Type: Nursing Progress Note Filed: 10/22/2019 6:56 AM Note Text: Nursing Progress Note Patient Name: Pedro Pablo Sierra Patient Location: [place] [address]/[place] [address] __ Transfer Note: Patient transferred into room/unit [facility] in stable condition. Actions taken: No futher actions taken at this time. Will continue to monitor and check with patient. This note was completed by: Cristina Shields, ОЛЕГ [facility] NUTRITIONon 10-22-2019 NUTRITION HNO ID: [id number] Author: Nidia Dsouza Service: NST-Nutrition Support Team Author Type: Registered Dietitian Type: Nutrition Filed: 10/22/2019 1:03 PM Note Text: NUTRITION THERAPY REASSESSMENT NOTE SERVICE DATE: 10/22/2019 SERVICE TIME: 1:00 PM Nutrition Assessment: Recommended Malnutrition Diagnosis: Moderate Protein-Calorie Malnutrition In the context of: Acute Illness or Injury Based on: Insufficient Energy Intake;Subcutaneous Fat Loss;Muscle Loss Nutrition Diagnosis: Problem: Increased nutrient needs Related to: Suboptimal protein/energy intake As evidenced by: Laboratory markers;Procedure/surg shai;Depletion of fat/muscle stores;Intake records;Patient/family self-report;Medical condition Estimated kilocalorie needs: [id number] KCAL Calorie Calculation Method: 25-30 kcals/kg Estimated protein needs (grams): 102-136 GM PROTEIN Grams protein determined by: 1.5-2.0 g/kg;[place] Body Weight Care Plan: Continue current diet Supplements: Ensure Max Vitamins and Minerals: Multivitamin with minerals ENCOURAGE GOOD PO INTAKES FOR HEALING Monitor and Evaluation: Meet greater than 75% of estimated needs;Monitor fluid/electrolyte balance;Monitor labs, I/Os, vital signs, weight;Monitor bowel function Interval History: Per note 10/21 Dr Chacko 69 year old White male referred by?Dr. Lopez??for an opinion regarding management of L groin incision drainage after recent surgery (listed below). Mr. Sierra underwent left?common femoral endarterectomy with bovine patch, redo.Thrombectomy of the occluded Left RADHA and EIA.Left common and external?iliac stents?(Cast x 2),?(Jessica x 2)?from the origin of the RADHA to the groin?on 10/08/19. Two days later, he returned to the OR on 10/10/19 for hematoma evacuation,?Left EIA to TELEVISION REPORTER bypass with 7mm ringed PTFE, retrograde open RADHA angioplasty, and open thrombectomy?of?L iliac artery with extraction of previously placed stent that was crushed and thrombosed.? Now admitted with concern for SSI and underwent wound debridement with placement of sartorius flap. pt with 400 ml out of wound vac = 12 gm protein Intake History: Nutrition Intake Prior to Admission: Less than 75% estimated energy needs greater than or equal to 1 month Current Intake: Less than 75% estimated energy needs over: X 4-5 DAYS IN HOSPITAL - PT STATES LOW PO INTAKES AND APPETITE Current Diet: DIET REGULAR Anthropometrics: Height: 172.7 cm (5' 8) Weight: 80.2 kg (176 lb 12.9 oz) Dosing Weight: 80.2 kg (176 lb 12.9 oz) Usual Weight: 71.7 kg (158 lb) Body mass index is 26.88 kg/m?. Overweight Weight change percentage over time: NO WT LOSS RECENTLY Physical Exam: Subcutaneous fat loss: Mild Muscle loss: Mild Potential micronutrient deficiency: Skin Edema/Ascites: No edema GI Symptoms: Anorexia Functional Status: Regressed Potential Signs of Inflammation: Acute post-operative;Hypoalb uminemia;Hyperglycemia SIGNATURE: Nidia Dsouza RD, RADHA PATIENT NAME: Pedro Pablo Sierra DATE: October 22, 2019 TIME: 1:00 PM PAGER: For further assistance and weekends please page the Group Pager [phone] [facility] PROCEDUREon 10-22-2019 PROCEDURE HNO ID: [id number] Author: Yeimi Montero RN Service: PICC Team Author Type: Registered Nurse Type: Procedures Filed: 10/22/2019 10:54 AM Note Text: PICC NURSE INSERTION NOTE DATE OF PROCEDURE: October 22, 2019 TIME OF PROCEDURE: 1000 ORDERING PHYSICIAN: Roman Ching INFORMED CONSENT: Obtained per hospital policy. INDICATION FOR LINE PLACEMENT: Incompatible drugs/need more lines available IV therapy over six days CONDITION OF LINE PLACEMENT: Sterile PRIMARY PROCEDURALIST: Katherine Dumont RN BANK CREDIT CARD COLLECTION CLERK: Yeimi Montero RN PRE-PROCEDURE REVIEW ALLERGIES No Known Allergies Known History of Venous Thrombosis: No Known History of Permanent Pacemaker or Automated Implanted Cardiac Device: No Previous Breast Surgery of Lymph Node Dissection: No History of Renal Disease with Arterio-Venous Fistula in Place or Planned: No Ultrasound Assessment Complete: Yes PROCEDURE NARRATIVE SAFE PRACTICE Hand Hygiene per Hospital Policy: Yes Skin Preparation Unit Dose Applicator Used: Chloraprep (CHG + alcohol), allowed to dry. Procedure Surface Cleansed with Antimicrobial Wipes: Yes Barriers Used by Proceduralist and all Assisting Personnel: Yes UNIVERSAL PROTOCOL / SAFETY CHECKLIST Procedure to be performed: PICC Insertion Sign in Communication: Completed Time Out: Team Confirms the Correct Patient, Correct Procedure, Correct Site and Site Marking, Correct Position (if applicable), Prep and Dry Time (if applicable). Time: 1040 Affirmation of Time Out: N/A Sign Out Discussion: Completed Yeimi Montero RN CATHETER PLACEMENT Brand: [employer] Lot: [id number] Number of Lumens: 2 Type of PICC: Power Injectable PICC Lumen Size: 5 Vincentian PLACEMENT TECHNIQUE Lidocaine: Yes. Strength: 1% Volume 2 ml Modified Seldinger Technique Used to Place Line via the Right Basilic Ultrasound Guidance: Yes Number of Attempts at Insertion: 1 Ensured control of guidewire during all aspects of the procedure: Yes Accounted for entire guidewire upon removal: Yes Internal Length: 45 cm External Length: 0 cm Trim Length: 45 cm Mid-Arm Circumference Above Insertion Site: 27 centimeters Post Insertion Pain Level Related to Procedure: 0 Action Taken to Address Pain: None needed Verified Placement: Blood return and Tip location system or device indicates the tip is located in the SVC/CAJ. Line was Flushed with 20 cc normal saline Line Secured with: Securement device Sterile Dressing Applied and Dated: Yes Sterile Caps on all Ports Prior to Leaving Procedure Area: Yes SPECIMENS: None COMPLICATIONS: None Patient Education Materials: Placed in chart [facility] Central Line Insertion checklist, attached to the Central Line-Associated Bloodstream Infection Prevention Policy, was utilized during this procedure. QUESTIONS or PROBLEMS: Call [phone] SIGNATURE: Yeimi Montero RN PATIENT NAME: Pedro Pablo Sierra DATE: October 22, 2019 TIME: 10:45 AM PAGER/CONTACT PHONE: [phone] [facility] PROGRESSon 10-22-2019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 UGLUC Negative 10/17/2019 UBILI Negative 10/17/2019 UKET Negative 10/17/2019 UHB Negative 10/17/2019 UPROT Negative 10/17/2019 UWBC Rare 10/17/2019 CMP: Lab Results Component Value Date ALB 3.1 10/17/2019 CA 8.6 10/21/2019 TBILI 0.4 10/17/2019 ALKPHOS 60 10/17/2019 AST 56 10/17/2019 GLUC 118 10/21/2019 BUN 11 10/21/2019 CREAT 0.90 10/21/2019 NA 137 10/21/2019 K 4.1 10/21/2019 CHLOR 97 10/21/2019 CO2 30 10/21/2019 ANION 10 10/21/2019 ALT 58 10/17/2019 WSR: Lab Results Component Value Date WSR 2 11/17/2017 Impression/Recommendat ions Mr. Sierra who is a 69 year old male with PMH of CAD with WI, HTN, COPD, DM, seizure disorder, peripheral arterial disease with multiple surgeries to left common femoral since 2013. Most recently on 10/08/2019 he underwent L CF endart with bovine patch redo, thrombectomy L RADHA, EIA, Left RADHA and EIA stent. He returned to the OR 2 days later for exploration and revasc due to occluded TELEVISION REPORTER requiring hematoma evacuation,?Left EIA to TELEVISION REPORTER bypass with PTFE, retrograde open RADHA angioplasty, and open thrombectomy?of?L iliac artery with extraction of previously placed stent that was crushed and thrombosed. Left groin surgical site infection s/p excisional debridement of necrotic skin, subcutaneous tissue, and fascia of left groin, Wound VAC placement, Sartorius muscle flap placement C/o purulent discharge from previous surgical site since past 1 week CTA showing retroperitoneal hematoma Intra-operatively found necrotic fat tissue that was debrided, PTFE graft appears patent No evidence of SIRS/sepsis at this time Would culture growing klebsiella pneumoniae Received total of 5 days of vancomycin and Zosyn Plan: Discontinue Vancomycin Continue IV Zosyn 3.375 mg q6h, will follow up on culture and sensitivity to decide on final home going antibiotics Anticipate adjunct faculty for medical terminology IV antibiotics and PICC line placement, duration to be determined based on clinical course and cultures This plan was discussed with Dr Alas SIGNATURE: Chanel Whittington MD PATIENT NAME: Pedro Pablo Sierra DATE: October 21, 2019 TIME: 2:42 PM PAGER/CONTACT #: [phone] Attending Note: I have examined the patient, gone over all the history, lab , Xray findings. Echevarria elements were confirmed. The above assessment and recommendations were written after my personal involvement in obtaining the history and examining the patient and direct input in writing the above notes. Discussed with the refering physician and the patient . Plan as outlined by resident's note. Evette Clement 10/21/2019 [facility] NURSING PROGon 10-21-2019 NURSING PROG HNO ID: [id number] Author: Yeimi (Rn) ОЛЕГ Wong Service: ? Author Type: Registered Nurse Type: Nursing Progress Note Filed: 10/22/2019 6:38 AM Note Text: Nursing Progress Note Patient Name: Pedro Pablo Sierra Patient Location: [id number] __ Daily Note: 1900 Received bedside report from Jaden AHUJA. 1999 Assessment complete. Please see all flowsheets. Pt takes NC off intermittently. Pt will put NC back on after education. 2345 Dr. Mcnally and chargeback analyst rounding in pt. SBAR given. Discussed high urine output. 0000 Reassessment complete. Please see all flowsheets. 0340 Per lab blessing, pt is refusing lab draws. Educated pt on the importance of labs (especially aptt). Pt is willing to have labs drawn. loss control technician was leaving unit when told pt will allow her to draw labs. loss control technician states she will be back. 0400 Reassessment complete. Please see all flowsheets. 0525 Called report to [place] [address] RN. Pt is ready for transfer. [id number] Pt transferred to [place] [id number] via bed by this RN and PCNA. Pt arrived to room in stable condition. RN notified that aptt is due at 1130. This note was completed by: Yeimi Wong RN [facility] NURSING PROG HNO ID: [id number] Author: Katherine NessRn) ОЛЕГ Dumont Service: PICC Team Author Type: Registered Nurse Type: Nursing Progress Note Filed: 10/21/2019 2:26 PM Note Text: PICC/VASCULAR ACCESS PROGRESS NOTE SERVICE DATE: 10/21/2019 SERVICE TIME: 2:05pm PICC ordered. Patient has 2 working PIV's. Plan to place PICC 10/22/19. Will continue to follow, RN aware. SIGNATURE: Katherine Dumont RN PATIENT NAME: Pedro Pablo Sierra DATE: October 21, 2019 TIME: 2:25 PM PAGER/CONTACT #: [phone] [facility] NURSING PROG HNO ID: [id number] Author: Jaden NessRnPauline New RN Service: Nursing Author Type: Registered Nurse Type: Nursing Progress Note Filed: 10/21/2019 7:56 PM Note Text: Nursing Progress Note Patient Name: Pedro Pablo Sierra Patient Location: [id number] __ Daily Note: 0700 Report received from Rosaura AHUJA 0800 Assessment completed. 1000 Juliana Oden, Roman Girard CNP, and Dr. Lopez in for left groin wound vac change. 1200 Reassessment completed 1600 Reassessment completed. 1900 Report given to Yeimi AHUJA This note was completed by: Jaden New RN [facility] PROGRESSon 10-21-2019 PROGRESS HNO ID: [id number] Author: Emilie Alan (Pharmacist) Service: Pharmacy Author Type: Pharmacist Type: Progress Notes Filed: 10/21/2019 11:29 AM Note Text: PHARMACY VANCOMYCIN DOSING NOTE Patient Name: Pedro Pablo Sierra Admission Date: 10/17/2019 Date of Consult: 10/21/2019 Time of Consult: 11:26 AM Indication: Skin/Soft tissue infection Goal Range: 10-20 mcg/mL RECOMMENDATIONS/PLAN: Pharmacy consulted for vancomycin dosing for Pedro Pablo Sierra, a 69 year old, male who is being treated with vancomycin for skin/soft tissue infection - infected left groin wound. 1. Patient is currently ordered Vancomycin 1.25 g IV q12h. Today is day 5 of therapy. 2. The most recent vancomycin level was 16.3 mcg/mL drawn at 0714 on 10/20. This is a 12 hour level on the 5th day of therapy. 3. The present dose of vancomycin is the recommended dosage for this patient at this time. Continue therapy as prescribed. 4. The next vancomycin level will be ordered for 10/25 unless clinically indicated sooner. (Pharmacy will order) We will follow patient renal function, vancomycin levels and doses with you during the course of therapy. Additional recommendations will appear in follow up notes. If you have any questions, please contact Emilie Alan, Jorge A, BCPS at [phone]. Age: [age] year old Allergies: ALLERGIES No Known Allergies Last 3 Encounter Wt Readings: Date: Wt: 10/16/2019 79.8 kg (175 lb 14.8 oz) 09/12/2019 76.7 kg (169 lb) 09/02/2019 77.2 kg (170 lb 1.6 oz) Last 1 Encounter Ht Readings: Date: Ht: 10/16/2019 172.7 cm (5' 8) CrCl: 74 mL/min Temp (24hrs), Av.7 ?C (98 ?F), Min:36.4 ?C (97.5 ?F), Max:37 ?C (98.6 ?F) - Current Temp: 36.4 ?C (97.5 ?F) Labs BUN (mg/dL) Date Value 10/21/2019 11 10/20/2019 11 10/19/2019 8 (L) Creatinine (mg/dL) Date Value 10/21/2019 0.90 10/20/2019 0.90 10/19/2019 0.83 WBC (k/uL) Date Value 10/21/2019 6.34 10/20/2019 5.68 10/20/2019 6.11 Vancomycin Levels: Vancomycin, result (ug/mL) Date/Time Value 10/21/2019 0714 16.3 11/06/2013 0512 18.7 EMILIE ALAN, PHARMACIST Normal [facility] PROGRESS HNO ID: [id number] Author: Rashawn Huntley Service: Critical Care Author Type: Anesthesiologist Type: Progress Notes Filed: 10/21/2019 1:42 PM Note Text: SURGICAL INTENSIVE CARE UNIT PROGRESS NOTE Pedro Pablo Sierra [id number] Admit Date: 10/17/2019 1:34 AM Experimental Preflight Mechanic: Dr. Huntley Surgeon: Dr. Lopez Operation: 10/18/2019 Left groin exploration, hematoma evacuation, debridement of soft tissues, washout; Sarotorius flap, wound vac placement. REASON FOR ICU ADMISSION: Neurovascular monitoring History: Pedro Pablo Sierra is a 69 year old male with a h/o CAD c/b WI, HTN, COPD, DM, seizure disorder. Underwent L CF endart with bovine patch redo. Thrombectomy L RADHA, EIA, Left RADHA and EIA stent. He returned to the OR 2 days later for exploration and revasc due to occluded TELEVISION REPORTER. In the OR, he underwent hematoma evacuation,?Left EIA to TELEVISION REPORTER bypass with 7mm ringed PTFE, retrograde open RADHA angioplasty, and open thrombectomy?of?L iliac artery with extraction of previously placed stent that was crushed and thrombosed. He was then discharged on 10/13. He came back for the concerns regarding groin incision drainage. ? He is now s/p left groin exploration, hematoma evac, debridement of soft tissues, washout, sartorius flap, wound vac placement ? Neurological h/o anxiety, depression, chronic back pain Plan: - Pain control with tylenol, oxycodone and PRN IV dilaudid - Zoloft, gabapentin, mirtazapine, carbamazepine, bentyl. ? Cardiovascular h/o WI HDS Plan: - Maintain MAPs >65 - Amlodipine, atorvastatin, metoprolol ? Hematological No signs of active bleeding Plan: - heparin gtt ? Pulmonary H/o COPD, former smoker, PJ Plan: - Titrate O2 therapy to SpO2>92%, wean oxygen as able - Encourage incentive spirometry while awake - BPH, nicotine patch - duoneb, pulmicort, proventil breathing treatment ? Gastrointestinal Plan: - colace - PPI - regular diet ? Renal / Fluids / Electrolytes Plan: - IVF: NS at 30cc/hr - Maintain K>4, Mg>2 - finasteride - continue clark for accurate I/Os ? Infectious Diseases Assessment: infected groin wound with drainage s/p exploration Plan: - f/u wound cx - Zosyn and Vanc - wound vac per primary team. Changed today ? Endocrine h/o DM Plan: - accu checks AC HS ? Musculoskeletal Assessment: s/p left groin exploration Plan: - bedrest - vascular checks Q4 hr ? Prophylaxis - DVT prophylaxis: SCDs, heparin gtt - GI prophylaxis: protonix - Frequent turns ? Lines / Drains / Vascular Access - PIV - Clark ? Disposition and Activity - stable for transfer to lower level of care per primary team ? Care discussed with Attending Dr. Huntley on 10/21/2019 ========= = SUBJECTIVE MAJOR ISSUES: None VITAL SIGNS Temp: 36.4 ?C (97.5 ?F) Pulse: 66 BP: 102/50 MAP Non Invasive (Mean Arterial Pressure): 65 Resp: 16 SpO2: 95 % FLUID BALANCE: Intake/Output Summary (Last 24 hours) at 10/21/2019 1114 Last data filed at 10/21/2019 0909 Gross per 24 hour Intake 2992 ml Output 3105 ml Net -113 ml Current Weight: Weight: 79.8 kg (175 lb 14.8 oz) Admission Weight: Weight: 77.2 kg (170 lb 3.1 oz) RESPIRATORY Mechanical Ventilation: No. Supplemental Oxygen: Yes. 3L NC PHYSICAL EXAM GENERAL: no acute distress, alert and oriented x 3 NEURO: CN II-XII grossly normal, ELLIS PULMONARY: No evidence of increased WOB on NC CARDIAC: HDS ABDOMINAL: soft, non distended WOUNDS: left groin wound with vac in place Pressure ulcer: No INFUSION(S): heparin MEDICATIONS: Current Facility-Administered Medications Medication Dose Route Frequency - heparin iv infusion (LOW DOSE ACS/NOMOGRAM) 25,000 units in NaCl 0.45% 250 mL PREMIX 0-3,000 Units/hr INTRAVENOUS CONTINUOUS And - heparin RATE CHANGE bolus 1,000-4,000 Units for subtherapeutic aptt results 1,000-4,000 Units INTRAVENOUS PRN - docusate sodium 100 mg cap(s) (COLACE) 100 mg ORAL BID - vancomycin dosing and monitoring per pharmacy OTHER As Directed - acetaminophen 1,000 mg tab(s) (TYLENOL) 1,000 mg ORAL q 6 H - amLODIPine 5 mg tab(s) (NORVASC) 5 mg ORAL DAILY - carBAMazepine XR 200 mg tab(s) (TEGretol XR) 200 mg ORAL BID - dicyclomine 20 mg tab(s) (BENTYL) 20 mg ORAL TID w MEALS - NaCl 0.9% iv infusion 30 mL/hr INTRAVENOUS CONTINUOUS - gabapentin 300 mg cap(s) (NEURONTIN) 300 mg ORAL BID - atorvastatin 40 mg tab(s) (LIPITOR) 40 mg ORAL DAILY - finasteride 5 mg tab(s) (PROSCAR) 5 mg ORAL DAILY - tamsulosin ER 0.4 mg cap(s) (FLOMAX) 0.4 mg ORAL DAILY - albuterol 2.5 mg /3 mL (0.083 %) 2.5 mg (PROVENTIL) 2.5 mg INHALATION q 6 H PRN - metoprolol tartrate (short acting) 25 mg tab(s) (LOPRESSOR) 25 mg ORAL BID - pantoprazole DR 40 mg tab(s) (PROTONIX) 40 mg ORAL DAILY (6 AM) - sertraline 100 mg tab(s) (ZOLOFT) 100 mg ORAL DAILY - NaCl 0.9% 3-5 mL 3-5 mL INTRAVENOUS q 12 H - ondansetron 4 mg tab(s) (ZOFRAN) 4 mg ORAL q 6 H PRN Or - ondansetron (PF) 4 mg injection (ZOFRAN) 4 mg INTRAVENOUS q 6 H PRN - nicotine 21 mg/24 hr 1 Patch (NICODERM) 1 Patch TRANSDERMAL DAILY And - nicotine -- REMOVE patch OTHER DAILY And - nicotine - verify patch OTHER q 8 H - oxyCODONE IR 5-10 mg tab(s) (ROXICODONE) 5-10 mg ORAL q 4 H PRN - HYDROmorphone 0.2 mg injection (DILAUDID) 0.2 mg INTRAVENOUS q 4 H PRN - budesonide 0.25 mg/2 mL 0.25 mg (PULMICORT) 0.25 mg INHALATION BID And - ipratropium-albuterol 3 mL nebulizer solution (DUONEB) 3 mL INHALATION QID - mirtazapine 15 mg (REMERON) 15 mg ORAL AT BEDTIME - senna 8.6 mg tab(s) (SENOKOT) 8.6 mg ORAL AT BEDTIME - piperacillin-tazobacta m iv piggyback 3.375 g in dextrose (iso-osmotic) 50 mL (ZOSYN) 3.375 g INTRAVENOUS q 6 H - vancomycin iv piggyback 1.25 g in D5W 250 mL (VANCOCIN) 0.015 g/kg/dose INTRAVENOUS q 12 HR Patient Lines Assessed: PIV Diagnostic tests reviewed for today's visit: Most recent labs and imaging results. PATIENT CHECKLIST ? Deep vein thrombosis prophylaxis administered? Yes. ? Stress ulcer prophylaxis? Yes. ? HOB elevated 45 degrees? Yes. ? Central line or arterial line present? No ? Pain addressed? Yes. ? Plan reviewed with assigned RN? Yes. ? Nutrition: Enteral- No. TPN- No. PO- Yes. ? Family updated within last 24 hours? Yes. ? Discharge needs assessed? Yes. Vanesa Roberts MD General Surgery PGY-2 iPhone: [phone] October 21, 2019 [facility] STAFF PHYSICIAN NOTE OF PERSONAL INVOLVEMENT IN CARE ? I have reviewed the progress note?obtained and documented by the resident?and I personally participated in the echevarria components. I have discussed the case and management of the patient's care. The following comments revise or confirm relevant echevarria components of their note. Wound infection of L iliac artery graft site Acute post-op pain Hypercoagulable state Lupus anti-coagulant PVD Appropriate MS Pain controlled Stable HD's No signs of respiratory compromise As documented above Patient seen and evaluated with Vascular Surgery Patient remains stable to transfer to a lower level of care outside the ICU Level II Rashawn Huntley DO 1:42 PM October 21, 2019 [facility] PROGRESS HNO ID: [id number] Author: Lesly Salvador Service: Vascular Surgery Author Type: Physician Type: Progress Notes Filed: 10/21/2019 12:06 PM Note Text: [facility] POSTOP PROGRESS NOTE Service Date: 10/21/2019Admit Date: 10/17/2019Service Time: 6:52 AM LOS: 3 day(s) Primary Service: Vascular Surgery Vascular Physician: Lesly Lopez MD Interval Events/Issues: No acute events overnight MAMIE SS Wound VAC holding suction Subjective Current Facility-Administered Medications Medication Dose Route Frequency - gabapentin 300 mg cap(s) (NEURONTIN) 300 mg ORAL BID - atorvastatin 40 mg tab(s) (LIPITOR) 40 mg ORAL DAILY - finasteride 5 mg tab(s) (PROSCAR) 5 mg ORAL DAILY - tamsulosin ER 0.4 mg cap(s) (FLOMAX) 0.4 mg ORAL DAILY - albuterol 2.5 mg /3 mL (0.083 %) 2.5 mg (PROVENTIL) 2.5 mg INHALATION q 6 H PRN - metoprolol tartrate (short acting) 25 mg tab(s) (LOPRESSOR) 25 mg ORAL BID - pantoprazole DR 40 mg tab(s) (PROTONIX) 40 mg ORAL DAILY (6 AM) - sertraline 100 mg tab(s) (ZOLOFT) 100 mg ORAL DAILY - NaCl 0.9% 3-5 mL 3-5 mL INTRAVENOUS q 12 H - ondansetron 4 mg tab(s) (ZOFRAN) 4 mg ORAL q 6 H PRN Or - ondansetron (PF) 4 mg injection (ZOFRAN) 4 mg INTRAVENOUS q 6 H PRN - nicotine 21 mg/24 hr 1 Patch (NICODERM) 1 Patch TRANSDERMAL DAILY And - nicotine -- REMOVE patch OTHER DAILY And - nicotine - verify patch OTHER q 8 H - oxyCODONE IR 5-10 mg tab(s) (ROXICODONE) 5-10 mg ORAL q 4 H PRN - HYDROmorphone 0.2 mg injection (DILAUDID) 0.2 mg INTRAVENOUS q 4 H PRN - budesonide 0.25 mg/2 mL 0.25 mg (PULMICORT) 0.25 mg INHALATION BID And - ipratropium-albuterol 3 mL nebulizer solution (DUONEB) 3 mL INHALATION QID - mirtazapine 15 mg (REMERON) 15 mg ORAL AT BEDTIME - senna 8.6 mg tab(s) (SENOKOT) 8.6 mg ORAL AT BEDTIME - piperacillin-tazobacta m iv piggyback 3.375 g in dextrose (iso-osmotic) 50 mL (ZOSYN) 3.375 g INTRAVENOUS q 6 H - vancomycin iv piggyback 1.25 g in D5W 250 mL (VANCOCIN) 0.015 g/kg/dose INTRAVENOUS q 12 HR - vancomycin dosing and monitoring per pharmacy OTHER As Directed - acetaminophen 1,000 mg tab(s) (TYLENOL) 1,000 mg ORAL q 6 H - amLODIPine 5 mg tab(s) (NORVASC) 5 mg ORAL DAILY - carBAMazepine XR 200 mg tab(s) (TEGretol XR) 200 mg ORAL BID - dicyclomine 20 mg tab(s) (BENTYL) 20 mg ORAL TID w MEALS - NaCl 0.9% iv infusion 30 mL/hr INTRAVENOUS CONTINUOUS - docusate sodium 100 mg cap(s) (COLACE) 100 mg ORAL BID - heparin iv infusion (LOW DOSE ACS/NOMOGRAM) 25,000 units in NaCl 0.45% 250 mL PREMIX 0-3,000 Units/hr INTRAVENOUS CONTINUOUS And - heparin RATE CHANGE bolus 1,000-4,000 Units for subtherapeutic aptt results 1,000-4,000 Units INTRAVENOUS PRN Medication and Non-Pharmacologic VTE Prophylaxis/Anticoagul ants Anticoagulant AND Antiplatelet Medications (From admission, onward) Start Dose Route Frequency Ordered Stop 10/20/19 1230 heparin iv infusion (LOW DOSE ACS/NOMOGRAM) 25,000 units in NaCl 0.45% 250 mL PREMIX (Heparin Infusion + Rate Change Bolus) 0-30 mL/hr 0-3,000 Units/hr INTRAVENOUS CONTINUOUS 10/20/19 1213 -- 10/17/19 0215 vte current anticoag therapy ([place]) 10/17/19 0215 pneumatic compression stockings ([place] VTE Prophylaxis: VTE prophylaxis appropriate ALLERGIES No Known Allergies Objective PHYSICAL EXAM: Patient Vitals for the past 24 hrs: BP 111/82 Pulse 64 Temp 36.4 ?C (97.5 ?F) (Axillary) Resp 16 Ht 172.7 cm (5' 8) Wt 79.8 kg (175 lb 14.8 oz) SpO2 97% BMI 26.75 kg/m? Intake/Output Summary (Last 24 hours) at 10/21/2019 0924 Last data filed at 10/21/2019 0909 Gross per 24 hour Intake 2992 ml Output 3220 ml Net -228 ml CONSTITUTIONAL: Well developed and No acute distress NEUROLOGIC/PSYCHIATRIC : Oriented to time, place AND person HEENT: EOM's intact LUNGS: Clear HEART: Regular rate AND rhythm ABDOMEN: Soft INTEGUMENTARY: Wound - No SURGICAL SITES: Groin - left; wound vac in place. No crepitus or obvious infection. MUSCULOSKELETAL: No deformities Pulses/Signals: biphasic DP/PTS DATA: Laboratory: Recent Labs 10/21/19 0714 10/20/19 1227 10/20/19 0401 WBC 6.34 5.68 6.11 HB 9.3* 9.1* 8.9* HCT 30.0* 29.0* 28.9* PLT 514* 437* 454* Recent Labs 10/21/19 0157 10/20/19 0401 10/19/19 0327 NA 137 140 140 K 4.1 3.7 3.5 BUN 11 11 8* CREAT 0.90 0.90 0.83 GLUC 118* 121* 110* Recent Labs 10/21/19 0854 10/21/19 0157 10/20/19 1856 10/20/19 1227 APTT 68.6* 44.0* 44.7* 33.3* 28.9 INR -- -- -- 1.0 Assessment/Plan Impression: Pedro Pablo Sierra is a 69 year old White male referred by Dr. Lopez for an opinion regarding management of L groin incision drainage after recent surgery (listed below). Mr. Sierra underwent left?common femoral endarterectomy with bovine patch, redo.Thrombectomy of the occluded Left RADHA and EIA.Left common and external?iliac stents?(Cast x 2),?(Jessica x 2)?from the origin of the RADHA to the groin on 10/08/19. Two days later, he returned to the OR on 10/10/19 for hematoma evacuation,?Left EIA to TELEVISION [employer]TER bypass with 7mm ringed PTFE, retrograde open RADHA angioplasty, and open thrombectomy?of?L iliac artery with extraction of previously placed stent that was crushed and thrombosed. Now admitted with concern for SSI and underwent wound debridement with placement of sartorius flap. ? Plan: Continue diet Continue neurovascular checks Bedrest for 5 days (day 3/5) Miralax today Clark in place Continue abx Wound vac to suction- MWF changes Restart plavix and coumadin and monitor CBC (lupus anticoagulant) SIGNATURE: Anum Chacko MD PATIENT NAME: Pedro Pablo Sierra DATE: October 21, 2019 TIME: 9:22 AM PAGER/CONTACT #: [phone] I agree with the above note. The patient was seen and examined by me today. His wound VAC was changed at bedside. He is quite tender in the area, as expected. However, there is no sign of infection or ischemia. The muscle flap has excellent perfusion in the surrounding skin and soft tissue are viable. Distal perfusion remained strong. The plan will be to continue IV antibiotics for at least 2 weeks given the severe soft tissue infection and synthetic graft in place. In fact, I tend to favor IV antibiotics until the entirety of the wound is granulating well. In addition, we will begin to transition him to Coumadin and Plavix, maintaining IV heparin for his anticoagulation until his INR is therapeutic. He can be transferred to a regular medical floor from my perspective, but should remain at bed rest for at least 48 hours more (a total of 5 days of bedrest after the muscle flap procedure). We will consider allowing him to get up to a chair and ambulate with physical therapy assistance after his next wound VAC change, depending on findings at the time. The patient understands and agrees. Normal [facility] PTT,Anticoag Therapyon 10-20 aPTT Coag (Bld) [Time] 37.0 s High 23.0-32.4 [facility] Comment on above: Result Comment: Unfr actionated Heparin Therapeutic Ranges: Standard Heparin Nomogram: 53 to 78 seconds (anti-Xa level of 0.3 to 0.7 U/ml) Low Dose/ACS Nomogram: 49 to 67 seconds (anti-Xa level of 0.2 to 0.5 U/ml) Stroke Treatment Nomogram: 49 to 67 seconds (anti-Xa level of 0.2 to 0.5 U/ml) Note: The APTT therapeutic range has been determined for the current lot of laboratory APTT reagent in use throughout the [facility]. Performed By: #### P TTAC ####[facility] [place], [place] [phone] aPTT Coag (Bld) [Time] 68.6 s High 23.0-32.4 [facility] Comment on above: Result Comment: Unfr actionated Heparin Therapeutic Ranges: Standard Heparin Nomogram: 53 to 78 seconds (anti-Xa level of 0.3 to 0.7 U/ml) Low Dose/ACS Nomogram: 49 to 67 seconds (anti-Xa level of 0.2 to 0.5 U/ml) Stroke Treatment Nomogram: 49 to 67 seconds (anti-Xa level of 0.2 to 0.5 U/ml) Note: The APTT therapeutic range has been determined for the current lot of laboratory APTT reagent in use throughout the [facility]. Performed By: #### P TTAC ####[facility] [place], [place] [phone] aPTT Coag (Bld) [Time] 44.0 s High 23.0-32.4 [facility] Comment on above: Result Comment: Unfr actionated Heparin Therapeutic Ranges: Standard Heparin Nomogram: 53 to 78 seconds (anti-Xa level of 0.3 to 0.7 U/ml) Low Dose/ACS Nomogram: 49 to 67 seconds (anti-Xa level of 0.2 to 0.5 U/ml) Stroke Treatment Nomogram: 49 to 67 seconds (anti-Xa level of 0.2 to 0.5 U/ml) Note: The APTT therapeutic range has been determined for the current lot of laboratory APTT reagent in use throughout the [facility]. Performed By: #### P TTAC ####[address] [phone] Vancomycinon 10-21-2019 Vancomycin 16.3 ug/mL Normal 10.0-20.0 [facility] Comment on above: Result Comment: Refe rence ranges and high/low indicator flags are provided as general guidelines only. The treating physician must determine appropriate target levels/dosing based on the specific clinical situation. Performed By: #### V ANCRA ####[address] [phone] APTTon 10-20-2019 aPTT Coag (Bld) [Time] 30.3 s Normal 23.0-32.4 [facility] Comment on above: Result Comment: Unfr actionated Heparin Therapeutic Ranges: Standard Heparin Nomogram: 53 to 78 seconds (anti-Xa level of 0.3 to 0.7 U/ml) Low Dose/ACS Nomogram: 49 to 67 seconds (anti-Xa level of 0.2 to 0.5 U/ml) Stroke Treatment Nomogram: 49 to 67 seconds (anti-Xa level of 0.2 to 0.5 U/ml) Note: The APTT therapeutic range has been determined for the current lot of laboratory APTT reagent in use throughout the [facility]. Performed By: #### B MP, PTT ####[place] [id number] [place], [place] [phone] Basic Metabolic Panlon 10-19 Anion gap [Moles/Vol] 9 mmol/L Normal 9-18 [facility] Comment on above: Performed By: #### B MP, PTT ####[facility] [place] [address] [phone] Calcium [Mass/Vol] 8.6 mg/dL Normal 8.5-10.5 [facility] Comment on above: Performed By: #### B MP, PTT ####[place] [phone] Chloride [Moles/Vol] 103 mmol/L Normal 98-110 [facility] Comment on above: Performed By: #### B MP, PTT ####[place] [phone] CO2 [Moles/Vol] 28 mmol/L Normal 23-32 [facility] Comment on above: Performed By: #### B MP, PTT ####[place] [phone] Creatinine [Mass/Vol] 0.90 mg/dL Normal 0.70-1.40 [facility] Comment on above: Performed By: #### B MP, PTT ####[place] [phone] eGFR- Amer. >60 Normal >60 [facility] Comment on above: Performed By: #### B MP, PTT ####[place] [phone] GFR/1.73 sq M predicted among non-blacks MDRD (S/P/Bld) [Vol rate/Area] mL/min/{1.73_m2} Normal >60 [facility] Comment on above: Performed By: #### B MP, PTT ####[facility] [place] [phone] Glucose [Mass/Vol] 121 mg/dL High 65-100 [facility] Comment on above: Performed By: #### B MP, PTT ####[place] [phone] Potassium [Moles/Vol] 3.7 mmol/L Normal 3.5-5.0 [facility] Comment on above: Performed By: #### B MP, PTT ####[place] [phone] Sodium [Moles/Vol] 140 mmol/L Normal 135-146 [facility] Comment on above: Performed By: #### B MP, PTT ####[place] [phone] Urea nitrogen [Mass/Vol] 11 mg/dL Normal 10-25 [facility] Comment on above: Performed By: #### B MP, PTT ####[place] [phone] CBCon 10-20-2019 Erythrocyte distribution width (RBC) [Ratio] 17.2 % High 11.5-15.0 [facility] Comment on above: Performed By: #### C BC, PT, PTTAC ####[place] [phone] Hematocrit (Bld) [Volume fraction] 29.0 % Low 39.0-51.0 [facility] Comment on above: Performed By: #### C BC, PT, PTTAC ####[place] [phone] Hemoglobin (Bld) [Mass/Vol] 9.1 g/dL Low 13.0-17.0 [facility] Comment on above: Performed By: #### C BC, PT, PTTAC ####[place] [phone] MCH (RBC) [Entitic mass] 30.3 pG Normal 26.0-34.0 [facility] Comment on above: Performed By: #### C BC, PT, PTTAC ####[place] [phone] MCHC (RBC) [Mass/Vol] 31.4 g/dL Normal 30.5-36.0 [facility] Comment on above: Performed By: #### C BC, PT, PTTAC ####[place] [phone] MCV (RBC) [Entitic vol] 96.7 fL Normal 80.0-100.0 [facility] Comment on above: Performed By: #### C BC, PT, PTTAC ####[place] [phone] Platelet mean volume (Bld) [Entitic vol] 9.3 fL Normal 9.0-12.7 [facility] Comment on above: Performed By: #### C BC, PT, PTTAC ####[place] [phone] Platelets (Bld) [#/Vol] 437 10*3/uL High 150-400 [facility] Comment on above: Performed By: #### C BC, PT, PTTAC ####[place] [phone] RBC (Bld) [#/Vol] 3.00 10*6/uL Low 4.20-6.00 [facility] Comment on above: Performed By: #### C BC, PT, PTTAC ####[place] [phone] WBC (Bld) [#/Vol] 5.68 10*3/uL Normal 3.70-11.00 [facility] Comment on above: Performed By: #### C BC, PT, PTTAC ####[place] [phone] CBC and Differentialon 10-19 Abs Baso 0.06 k/uL Normal <0.11 [facility] Comment on above: Performed By: #### C BCDIF ####[place] [phone] Abs Phelps 0.56 k/uL Normal <0.87 [facility] Comment on above: Performed By: #### C BCDIF ####[place] [phone] Abs Neut 4.13 k/uL Normal 1.45-7.50 [facility] Comment on above: Performed By: #### C BCDIF ####[place] [phone] Basophils/100 WBC (Bld) 1.0 % Normal [facility] Comment on above: Performed By: #### C BCDIF ####[place] [phone] DTYPE Auto Diff Normal [facility] Comment on above: Performed By: #### C BCDIF ####[place] [phone] Eosinophils (Bld) [#/Vol] 0.37 10*3/uL Normal <0.46 [facility] Comment on above: Performed By: #### C BCDIF ####[place] [phone] Eosinophils/100 WBC (Bld) 6.1 % Normal [facility] Comment on above: Performed By: #### C BCDIF ####[place] [phone] Erythrocyte distribution width (RBC) [Ratio] 17.3 % High 11.5-15.0 [facility] Comment on above: Performed By: #### C BCDIF ####[place] [phone] Hematocrit (Bld) [Volume fraction] 28.9 % Low 39.0-51.0 [facility] Comment on above: Performed By: #### C BCDIF ####[place] [phone] Hemoglobin (Bld) [Mass/Vol] 8.9 g/dL Low 13.0-17.0 [facility] Comment on above: Performed By: #### C BCDIF ####[place] [phone] Lymphocytes (Bld) [#/Vol] 0.99 10*3/uL Low 1.00-4.00 [facility] Comment on above: Performed By: #### C BCDIF ####[place] [phone] Lymphocytes/100 WBC (Bld) 16.2 % Normal [facility] Comment on above: Performed By: #### C BCDIF ####[place] [phone] MCH (RBC) [Entitic mass] 29.7 pG Normal 26.0-34.0 [facility] Comment on above: Performed By: #### C BCDIF ####[place] [phone] MCHC (RBC) [Mass/Vol] 30.8 g/dL Normal 30.5-36.0 [facility] Comment on above: Performed By: #### C BCDIF ####[place] [phone] MCV (RBC) [Entitic vol] 96.3 fL Normal 80.0-100.0 [facility] Comment on above: Performed By: #### C BCDIF ####[place] [phone] Monocytes/100 WBC (Bld) 9.2 % Normal [facility] Comment on above: Performed By: #### C BCDIF ####[place] [phone] Neutrophils/100 WBC (Bld) 67.5 % Normal [facility] Comment on above: Performed By: #### C BCDIF ####[place] [phone] Platelet mean volume (Bld) [Entitic vol] 9.3 fL Normal 9.0-12.7 [facility] Comment on above: Performed By: #### C BCDIF ####[place] [phone] Platelets (Bld) [#/Vol] 454 10*3/uL High 150-400 [facility] Comment on above: Performed By: #### C BCDIF ####[place] [phone] RBC (Bld) [#/Vol] 3.00 10*6/uL Low 4.20-6.00 [facility] Comment on above: Performed By: #### C BCDIF ####[place] [id number] [place], [place] [phone] WBC (Bld) [#/Vol] 6.11 10*3/uL Normal 3.70-11.00 [facility] Comment on above: Performed By: #### C BCDIF ####[place] [id number] [place], [place] [phone] NURSING PROGon 10-20-2019 NURSING PROG HNO ID: [id number] Author: Cornelius (Rn) ОЛЕГ Gonzalez Service: Nursing Author Type: Registered Nurse Type: Nursing Progress Note Filed: 10/20/2019 6:11 PM Note Text: Nursing Progress Note Patient Name: Pedro Pablo Sierra Patient Location: [place] [address]/[facility] __ Daily Note: 0700 Bedside report received from previous shift RN. 0800 Assessment completed and charted. Neuro intact. VSS. Heparin gtt infusing. See flowsheets. 1200 Reassessment completed and charted. 1600 Reassessment completed and charted. 1900 Bedside report given to oncoming RN. This note was completed by: Cornelius Gonzalez RN [facility] NURSING PROG HNO ID: [id number] Author: Mackenzie (Rn) ОЛЕГ Valero Service: Nursing Author Type: Registered Nurse Type: Nursing Progress Note Filed: 10/19/2019 11:30 PM Note Text: Nursing Progress Note Patient Name: Pedro Pablo Sierra Patient Location: [id number] __ Daily Note: 2304 Pt x-, Joseph Burrell called for update regarding pt. Pt. Daughter is listed as POA and primary contact. Pt had confirmed earlier to this RN that his daughter was the POA. Joseph informed that pt himself could give her updates however according to POA/primary contact documentation she would need to contact pts daughter. She maintains this is wrong and that pt did not state this. She demands to speak with MD. Informed her that pt is resting however when he wakes, I will inform him that she called [phone] Security updated regarding situation x-'s threats 2309 Pt called me into room and states that yes his x- does help with his care but the paperwork is not yet changed over. Pt is telling x- to shut up and then hangs up on her and appologizes to me. I informed him that if he would like her to be the POA/primary contact, I'm happy to consult social work and they can help him to get the paperwork change. Pt agreeable to this, pleasant and thankful to RN. 2318 x- called again, very rude and demanding, security notified. This note was completed by: Mackenzie Valero RN [facility] PROGRESSon 10-20-2019 PROGRESS HNO ID: [id number] Author: Deni Xiao Service: Critical Care Author Type: Anesthesiologist Type: Progress Notes Filed: 10/20/2019 12:10 PM Note Text: SICU PROGRESS NOTE SERVICE DATE: October 20, 2019 SERVICE TIME: 11:34 AM SUBJECTIVE Interval events (last 24 hours) / Pertinent ROS: No acute events overnight. OBJECTIVE VITAL SIGNS: BP 113/55 Pulse 66 Temp 36.6 ?C (97.8 ?F) (Oral) Resp 16 Ht 172.7 cm (5' 8) Wt 79.8 kg (175 lb 14.8 oz) SpO2 97% BMI 26.75 kg/m? PHYSICAL EXAM: General Appearance: Well appearing, In no acute distress Neuro: Awake, Follows commands, Alert, Moving all extremities Pulmonary Exam: Clear to auscultation Mechanical Ventilation: No. Supplemental Oxygen: Yes NC 3LPM Cardiovascular: RRR without murmur, gallop, or rubs. No ectopy Abdomen: Soft. Skin: Wound vac L groin. Extremities: Trace edema , Peripheral Pulses: Normal. Surgical incisions: clean, dry and intact PATIENT LINES ASSESSED: PIV CURRENT MEDICATIONS: Medications reviewed. Please refer to [facility] for list of inpatient medications. DIAGNOSTIC TESTS: The following diagnostic tests/findings were reviewed: ? Most recent labs ASSESSMENT/PLAN 69-year-old male S/P wound debridement and wound VAC of left iliac artery graft site admitted to the ICU for monitoring. Appropriate mental status. Pain well-controlled with Tylenol, oxycodone, Dilaudid. Continue home Tegretol, gabapentin and Remeron. Stable hemodynamics on home metoprolol and Amlodipine. Adequate oxygenation on nasal cannula, continue aggressive bronchopulmonary hygiene. Tolerating diet. Adequate UOP, stable BUN/Cr. OK to remove clark. No infectious concerns. Stable anemia without indication for transfusion. Blood glucose well controlled. SQH/PPI. Bedrest day #2 of 5 as per vascular surgery. I am OK with the patient leaving ICU - defer to surgical team. CARE COORDINATION: Level II. SIGNATURE: Deni Mcnamara DO PATIENT NAME: Pedro Pablo Sierra DATE: October 20, 2019 TIME: 11:34 AM PAGER/CONTACT #: [phone] [facility] PROGRESS HNO ID: [id number] Author: Florence Roman (Pharmacist) Service: Pharmacy Author Type: Pharmacist Type: Progress Notes Filed: 10/20/2019 11:19 AM Note Text: PHARMACY VANCOMYCIN DOSING NOTE Patient Name: Pedro Pablo Sierra Admission Date: 10/17/2019 Date of Consult: 10/20/2019 Time of Consult: 11:16 AM Indication: Skin/Soft tissue infection Goal Range: 10-20 mcg/mL RECOMMENDATIONS/PLAN: Pharmacy consulted for vancomycin dosing for Pedro Pablo Sierra, a 69 year old, male who is being treated with vancomycin for skin/soft tissue infection. 1. Patient is currently ordered Vancomycin 1.25 g IV q12h. Today is day 4 of therapy. 2. No vancomycin level has been drawn for this dosing regimen. 3. The present dose of vancomycin is the recommended dosage for this patient at this time. Continue therapy as prescribed. 4. The next vancomycin level has been ordered for 10/21/2019. (Completed) We will follow patient renal function, vancomycin levels and doses with you during the course of therapy. Additional recommendations will appear in follow up notes. If you have any questions, please contact Geoff LongoriaD at mobile [phone]. Age: [age] year old Allergies: ALLERGIES No Known Allergies Last 3 Encounter Wt Readings: Date: Wt: 10/16/2019 79.8 kg (175 lb 14.8 oz) 09/12/2019 76.7 kg (169 lb) 09/02/2019 77.2 kg (170 lb 1.6 oz) Last 1 Encounter Ht Readings: Date: Ht: 10/16/2019 172.7 cm (5' 8) CrCl: Estimated Creatinine Clearance: 73.9 mL/min (based on SCr of 0.9 mg/dL). Temp (24hrs), Av.8 ?C (98.2 ?F), Min:36.5 ?C (97.7 ?F), Max:37.2 ?C (99 ?F) - Current Temp: 36.6 ?C (97.8 ?F) Labs BUN (mg/dL) Date Value 10/20/2019 11 10/19/2019 8 (L) 10/18/2019 7 (L) Creatinine (mg/dL) Date Value 10/20/2019 0.90 10/19/2019 0.83 10/18/2019 0.67 (L) WBC (k/uL) Date Value 10/20/2019 6.11 10/19/2019 6.72 10/18/2019 4.99 Vancomycin Levels: Vancomycin, result (ug/mL) Date/Time Value 11/06/2013 0512 18.7 11/02/2013 1112 28.0 (H) Florence Roman, Pharm D, [facility] PROGRESS HNO ID: [id number] Author: Lesly Salvador Service: Vascular Surgery Author Type: Physician Type: Progress Notes Filed: 10/20/2019 5:02 PM Note Text: [facility] POSTOP PROGRESS NOTE Service Date: 10/19/2019Admit Date: 10/17/2019Service Time: 6:52 AM LOS: 2 day(s) Primary Service: Vascular Surgery Vascular Physician: Lesly Lopez MD Interval Events/Issues: Pain at left groin site Subjective Current Facility-Administered Medications Medication Dose Route Frequency - gabapentin 300 mg cap(s) (NEURONTIN) 300 mg ORAL BID - atorvastatin 40 mg tab(s) (LIPITOR) 40 mg ORAL DAILY - finasteride 5 mg tab(s) (PROSCAR) 5 mg ORAL DAILY - tamsulosin ER 0.4 mg cap(s) (FLOMAX) 0.4 mg ORAL DAILY - albuterol 2.5 mg /3 mL (0.083 %) 2.5 mg (PROVENTIL) 2.5 mg INHALATION q 6 H PRN - metoprolol tartrate (short acting) 25 mg tab(s) (LOPRESSOR) 25 mg ORAL BID - pantoprazole DR 40 mg tab(s) (PROTONIX) 40 mg ORAL DAILY (6 AM) - sertraline 100 mg tab(s) (ZOLOFT) 100 mg ORAL DAILY - NaCl 0.9% 3-5 mL 3-5 mL INTRAVENOUS q 12 H - ondansetron 4 mg tab(s) (ZOFRAN) 4 mg ORAL q 6 H PRN Or - ondansetron (PF) 4 mg injection (ZOFRAN) 4 mg INTRAVENOUS q 6 H PRN - nicotine 21 mg/24 hr 1 Patch (NICODERM) 1 Patch TRANSDERMAL DAILY And - nicotine -- REMOVE patch OTHER DAILY And - nicotine - verify patch OTHER q 8 H - oxyCODONE IR 5-10 mg tab(s) (ROXICODONE) 5-10 mg ORAL q 4 H PRN - HYDROmorphone 0.2 mg injection (DILAUDID) 0.2 mg INTRAVENOUS q 4 H PRN - budesonide 0.25 mg/2 mL 0.25 mg (PULMICORT) 0.25 mg INHALATION BID And - ipratropium-albuterol 3 mL nebulizer solution (DUONEB) 3 mL INHALATION QID - mirtazapine 15 mg (REMERON) 15 mg ORAL AT BEDTIME - senna 8.6 mg tab(s) (SENOKOT) 8.6 mg ORAL AT BEDTIME - piperacillin-tazobacta m iv piggyback 3.375 g in dextrose (iso-osmotic) 50 mL (ZOSYN) 3.375 g INTRAVENOUS q 6 H - vancomycin iv piggyback 1.25 g in D5W 250 mL (VANCOCIN) 0.015 g/kg/dose INTRAVENOUS q 12 HR - vancomycin dosing and monitoring per pharmacy OTHER As Directed - acetaminophen 1,000 mg tab(s) (TYLENOL) 1,000 mg ORAL q 6 H - amLODIPine 5 mg tab(s) (NORVASC) 5 mg ORAL DAILY - carBAMazepine XR 200 mg tab(s) (TEGretol XR) 200 mg ORAL BID - dicyclomine 20 mg tab(s) (BENTYL) 20 mg ORAL TID w MEALS - NaCl 0.9% iv infusion 30 mL/hr INTRAVENOUS CONTINUOUS - docusate sodium 100 mg cap(s) (COLACE) 100 mg ORAL BID - heparin iv infusion 25,000 units in 0.45% NaCl 250 mL PREMIX 500 Units/hr INTRAVENOUS CONTINUOUS Medication and Non-Pharmacologic VTE Prophylaxis/Anticoagul ants Anticoagulant AND Antiplatelet Medications (From admission, onward) Start Dose Route Frequency Ordered Stop 10/19/19 1400 heparin iv infusion 25,000 units in 0.45% NaCl 250 mL PREMIX 5 mL/hr 500 Units/hr INTRAVENOUS CONTINUOUS 10/19/19 1332 -- 10/17/19 0215 vte current anticoag therapy ([place]) 10/17/19 0215 pneumatic compression stockings ([place]) VTE Prophylaxis: VTE prophylaxis appropriate ALLERGIES No Known Allergies Objective PHYSICAL EXAM: Patient Vitals for the past 24 hrs: BP 123/72 Pulse 66 Temp 36.5 ?C (97.7 ?F) (Oral) Resp 16 Ht 172.7 cm (5' 8) Wt 79.8 kg (175 lb 14.8 oz) SpO2 96% BMI 26.75 kg/m? Intake/Output Summary (Last 24 hours) at 10/20/2019 0748 Last data filed at 10/20/2019 0600 Gross per 24 hour Intake 1967.52 ml Output 3005 ml Net -1037.48 ml CONSTITUTIONAL: Well developed and No acute distress NEUROLOGIC/PSYCHIATRIC : Oriented to time, place AND person HEENT: EOM's intact LUNGS: Clear HEART: Regular rate AND rhythm ABDOMEN: Soft INTEGUMENTARY: Wound - No SURGICAL SITES: Groin - left; wound vac in place. No crepitus or obvious infection. MUSCULOSKELETAL: No deformities Pulses/Signals: biphasic DP/PTS DATA: Laboratory: Recent Labs 10/20/19 0401 10/19/19 0329 10/18/19 0709 WBC 6.11 6.72 4.99 HB 8.9* 8.8* 9.1* HCT 28.9* 28.5* 29.1* PLT 454* 425* 384 Recent Labs 10/20/19 0401 10/19/19 0327 10/18/19 0709 NA 140 140 140 K 3.7 3.5 3.5 BUN 11 8* 7* CREAT 0.90 0.83 0.67* GLUC 121* 110* 87 Recent Labs 10/20/19 0401 10/18/19 0709 10/17/19 1252 APTT 30.3 -- -- INR -- 1.5* 1.9* Assessment/Plan Impression: Pedro Pablo Sierra is a 69 year old White male referred by Dr. Lopez for an opinion regarding management of L groin incision drainage after recent surgery (listed below). Mr. Sierra underwent left?common femoral endarterectomy with bovine patch, redo.Thrombectomy of the occluded Left RADHA and EIA.Left common and external?iliac stents?(Cast x 2),?(Jessica x 2)?from the origin of the RADHA to the groin on 10/08/19. Two days later, he returned to the OR on 10/10/19 for hematoma evacuation,?Left EIA to TELEVISION REPORTER bypass with 7mm ringed PTFE, retrograde open RADHA angioplasty, and open thrombectomy?of?L iliac artery with extraction of previously placed stent that was crushed and thrombosed. Now admitted with concern for SSI and underwent wound debridement with placement of sartorius flap. ? Plan: Continue diet Continue neurovascular checks Bedrest for 5 days (day 2/5) Clark in place Continue abx Wound vac to suction- MWF changes Continue hep 500cc/hr gtt and monitor CBC (lupus anticoagulant) SIGNATURE: Ayad Tompkins MD PATIENT NAME: Pedro Pablo Sierra DATE: October 19, 2019 TIME: 6:52 AM PAGER/CONTACT #: ETX#[id number] Pt seen and examined. Stable exam since yesterday. Groin pain as expected. Strong distal perfusion. Plan for VAC change tomorrow. D/w pt at bedside, and ex- by phone yesterday evening regarding POA concerns and info exchange by phone. He will need to change his POA-HC to ex-(from daughter) to allow nurses/staff to give ex- info on his progress.the patient would like to do so. This will require social work assistance tomorrow. Both understand and agree.Lesly Lopez MD October 20, 2019 5:02 PM Normal [facility] PTT,Anticoag Therapyon 10-19 aPTT Coag (Bld) [Time] 33.3 s High 23.0-32.4 [facility] Comment on above: Result Comment: Unfr actionated Heparin Therapeutic Ranges: Standard Heparin Nomogram: 53 to 78 seconds (anti-Xa level of 0.3 to 0.7 U/ml) Low Dose/ACS Nomogram: 49 to 67 seconds (anti-Xa level of 0.2 to 0.5 U/ml) Stroke Treatment Nomogram: 49 to 67 seconds (anti-Xa level of 0.2 to 0.5 U/ml) Note: The APTT therapeutic range has been determined for the current lot of laboratory APTT reagent in use throughout the [facility]. Performed By: #### P TTAC ####[facility] [place], [place] [phone] aPTT Coag (Bld) [Time] 28.9 s Normal 23.0-32.4 [facility] Comment on above: Result Comment: Unfr actionated Heparin Therapeutic Ranges: Standard Heparin Nomogram: 53 to 78 seconds (anti-Xa level of 0.3 to 0.7 U/ml) Low Dose/ACS Nomogram: 49 to 67 seconds (anti-Xa level of 0.2 to 0.5 U/ml) Stroke Treatment Nomogram: 49 to 67 seconds (anti-Xa level of 0.2 to 0.5 U/ml) Note: The APTT therapeutic range has been determined for the current lot of laboratory APTT reagent in use throughout the [facility]. Performed By: #### C BC, PT, PTTAC ####[facility] [place], [place] [phone] Protimeon 10-20-2019 PT Coag (PPP) [Time] 11.1 s Normal 9.7-13.0 [facility] Comment on above: Performed By: #### C BC, PT, PTTAC ####[address] [phone] PT Coag (PPP) [Time] 1.0 s Normal 0.9-1.3 [facility] Comment on above: Result Comment: Teri min K Antagonist (VKA) Therapeutic Range: INR 2 to 3 (Target INR of 2.5) Note: For patients treated with VKA drugs, such as warfarin, the [place] [employer] 2012 Guideline recommends [...] to 3.5 (target INR of 3). Jael GH, et al. Chest 2012, 141:7S-47S Gio RA, et al. JAC 2017, 70: 252-289 Performed By: #### C BC, PT, PTTAC ####[id number] [place], [place] [phone] Basic Metabolic Panlon 10-18 Anion gap [Moles/Vol] 14 mmol/L Normal 9-18 [facility] Comment on above: Performed By: #### B MP ####[id number] [place], [place] [phone] Calcium [Mass/Vol] 8.0 mg/dL Low 8.5-10.5 [facility] Comment on above: Performed By: #### B MP ####[id number] [place], [place] [phone] Chloride [Moles/Vol] 101 mmol/L Normal 98-110 [facility] Comment on above: Performed By: #### B MP ####[place] [phone] CO2 [Moles/Vol] 25 mmol/L Normal 23-32 [facility] Comment on above: Performed By: #### B MP ####[place] [phone] Creatinine [Mass/Vol] 0.83 mg/dL Normal 0.70-1.40 [facility] Comment on above: Result Comment: Revi ewed Performed By: #### B MP ####[place] [phone] eGFR- Amer. >60 Normal >60 [facility] Comment on above: Performed By: #### B MP ####[place] [phone] GFR/1.73 sq M predicted among non-blacks MDRD (S/P/Bld) [Vol rate/Area] mL/min/{1.73_m2} Normal >60 [facility] Comment on above: Performed By: #### B MP ####[place] [phone] Glucose [Mass/Vol] 110 mg/dL High 65-100 [facility] Comment on above: Performed By: #### B MP ####[place] [phone] Potassium [Moles/Vol] 3.5 mmol/L Normal 3.5-5.0 [facility] Comment on above: Performed By: #### B MP ####[place] [phone] Sodium [Moles/Vol] 140 mmol/L Normal 135-146 [facility] Comment on above: Performed By: #### B MP ####[place] [phone] Urea nitrogen [Mass/Vol] 8 mg/dL Low 10-25 [facility] Comment on above: Performed By: #### B MP ####[place] [phone] CBC and Differentialon 10-18 Abs Baso 0.03 k/uL Normal <0.11 [facility] Comment on above: Performed By: #### C BCDIF ####[place] [phone] Abs Phelps 0.46 k/uL Normal <0.87 [facility] Comment on above: Performed By: #### C BCDIF ####[place] [phone] Abs Neut 4.79 k/uL Normal 1.45-7.50 [facility] Comment on above: Performed By: #### C BCDIF ####[place] [phone] Basophils/100 WBC (Bld) 0.4 % Normal [facility] Comment on above: Performed By: #### C BCDIF ####[place] [phone] DTYPE Auto Diff Normal [facility] Comment on above: Performed By: #### C BCDIF ####[place] [phone] Eosinophils (Bld) [#/Vol] 0.27 10*3/uL Normal <0.46 [facility] Comment on above: Performed By: #### C BCDIF ####[place] [phone] Eosinophils/100 WBC (Bld) 4.0 % Normal [facility] Comment on above: Performed By: #### C BCDIF ####[place] [phone] Erythrocyte distribution width (RBC) [Ratio] 17.2 % High 11.5-15.0 [facility] Comment on above: Performed By: #### C BCDIF ####[place] [phone] Hematocrit (Bld) [Volume fraction] 28.5 % Low 39.0-51.0 [facility] Comment on above: Performed By: #### C BCDIF ####[place] [phone] Hemoglobin (Bld) [Mass/Vol] 8.8 g/dL Low 13.0-17.0 [facility] Comment on above: Performed By: #### C BCDIF ####[place] [phone] Lymphocytes (Bld) [#/Vol] 1.17 10*3/uL Normal 1.00-4.00 [facility] Comment on above: Performed By: #### C BCDIF ####[place] [phone] Lymphocytes/100 WBC (Bld) 17.4 % Normal [facility] Comment on above: Performed By: #### C BCDIF ####[place] [phone] MCH (RBC) [Entitic mass] 29.6 pG Normal 26.0-34.0 [facility] Comment on above: Performed By: #### C BCDIF ####[place] [phone] MCHC (RBC) [Mass/Vol] 30.9 g/dL Normal 30.5-36.0 [facility] Comment on above: Performed By: #### C BCDIF ####[place] [phone] MCV (RBC) [Entitic vol] 96.0 fL Normal 80.0-100.0 [facility] Comment on above: Performed By: #### C BCDIF ####[place] [phone] Monocytes/100 WBC (Bld) 6.8 % Normal [facility] Comment on above: Performed By: #### C BCDIF ####[place] [phone] Neutrophils/100 WBC (Bld) 71.4 % Normal [facility] Comment on above: Performed By: #### C BCDIF ####[id number] [place], [place] [phone] Platelet mean volume (Bld) [Entitic vol] 9.4 fL Normal 9.0-12.7 [facility] Comment on above: Performed By: #### C BCDIF ####[address] [phone] Platelets (Bld) [#/Vol] 425 10*3/uL High 150-400 [facility] Comment on above: Performed By: #### C BCDIF ####[address] [phone] RBC (Bld) [#/Vol] 2.97 10*6/uL Low 4.20-6.00 [facility] Comment on above: Performed By: #### C BCDIF ####[address] [phone] WBC (Bld) [#/Vol] 6.72 10*3/uL Normal 3.70-11.00 [facility] Comment on above: Performed By: #### C BCDIF ####[address] [phone] NURSING PROGon 10-19-2019 NURSING PROG HNO ID: [id number] Author: Bart (Rn) ОЛЕГ Ac Service: Critical Care Author Type: Registered Nurse Type: Nursing Progress Note Filed: 10/19/2019 7:29 PM Note Text: Nursing Progress Note Patient Name: Pedro Pablo Sierra Patient Location: [id number] __ Daily Note: 0700 Assumed care of pt, A+Ox3, bedside report completed, in bed resting and in stable condition 0800 Assessment completed and documented, IV capped, clean and flushing w/o difficulty. Pt verbalize his pain is 10/10, denies SOB, CP at this time. Wound vac on and functioning, lower extremities pulses present bilaterally, 3L NC, Call light w/i reach, will continue to monitor. 1200 Reassessment completed and documented, Pt stable condition, VSS, will continue to monitor 1600 Reassessment completed and documented, Pt stable condition, VSS, will continue to monitor 1925 Bedside report completed, in bed resting and in stable condition This note was completed by: BART AC RN [facility] NURSING PROG HNO ID: [id number] Author: Fran NessRn) ОЛЕГ Lucero Service: ? Author Type: Registered Nurse Type: Nursing Progress Note Filed: 10/19/2019 6:50 AM Note Text: Nursing Progress Note Patient Name: Pedro Pablo Sierra Patient Location: [id number] __ Daily Note: 1900: Patient handoff at bedside, assumed care of patient 2000: Assessment 0000: Reassessment 0100: Rounds at bedside with Dr. Randle, notified by this RN of increased abdominal firmness. Patient assessed with Dr. Randle, no new orders 0400: Reassessment 0700: Patient handoff at bedside, end of patient care This note was completed by: Fran Lucero RN [facility] NUTRITIONon 10-19-2019 NUTRITION HNO ID: [id number] Author: Muna Rivas Service: Nutrition Therapy Author Type: Registered Dietitian Type: Nutrition Filed: 10/19/2019 12:33 PM Note Text: NUTRITION THERAPY SCREEN NOTE SERVICE DATE: 10/19/2019 SERVICE TIME: 12:25 PM Care Plan: Continue current diet Supplements: Impact AR HPI: 69 yo male with h/o CAD c/b WI, HTN, COPD, DM, and seizure disorder s/p s/p left groin exploration, hematoma evac, debridement of soft tissues, washout, sartorius flap, wound vac placement Intake History: + Nursing Screen for unintentional weight loss and decreased oral intake. No significant weight loss noted. Unable to obtain nutritional history/preferences. Will refer to DTR for follow up. Current Diet: DIET REGULAR Anthropometrics: Height: 172.7 cm (5' 8) Weight: 76.7 kg (169 lb 1.5 oz) Last Wt Readings: Date: Wt: 10/16/2019 76.7 kg (169 lb 1.5 oz) 09/12/2019 76.7 kg (169 lb) 09/02/2019 77.2 kg (170 lb 1.6 oz) 09/02/2019 74.8 kg (165 lb) 08/30/2019 74.8 kg (165 lb) 08/22/2019 74.4 kg (164 lb) 08/08/2019 74.4 kg (164 lb) 08/07/2019 74.4 kg (164 lb) 07/11/2019 73.5 kg (162 lb) 07/02/2019 74.2 kg (163 lb 8 oz) 06/25/2019 74.8 kg (164 lb 14.4 oz) 05/02/2019 72.7 kg (160 lb 4.8 oz) 03/26/2019 69.4 kg (153 lb) 03/19/2019 69.4 kg (153 lb) 12/21/2018 71.8 kg (158 lb 6.4 oz) 11/09/2018 73.9 kg (163 lb) SIGNATURE: Muna Rivas RD, LD PATIENT NAME: Pedro Pablo Sierra DATE: October 19, 2019 TIME: 12:25 PM PAGER: For further assistance and weekends please page the Group Pager [phone] [facility] PROGRESSon 10-19-2019 PROGRESS HNO ID: [id number] Author: Florence Roman (Pharmacist) Service: Pharmacy Author Type: Pharmacist Type: Progress Notes Filed: 10/19/2019 10:58 AM Note Text: PHARMACY VANCOMYCIN DOSING NOTE Patient Name: Pedro Pablo Sierra Admission Date: 10/17/2019 Date of Consult: 10/19/2019 Time of Consult: 10:50 AM Indication: Skin/Soft tissue infection Goal Range: 10-20 mcg/mL RECOMMENDATIONS/PLAN: Pharmacy consulted for vancomycin dosing for Pedro Pablo Sierra, a 69 year old, male who is being treated with vancomycin for skin/soft tissue infection. 1. Patient is currently ordered Vancomycin 1.25 g IV q12h. Today is day 3 of therapy. 2. No vancomycin level has been drawn for this dosing regimen. 3. The present dose of vancomycin is the recommended dosage for this patient at this time. Continue therapy as prescribed. 4. The next vancomycin level will be ordered for 10/21/2019 unless clinically indicated sooner. (Pharmacy will order) We will follow patient renal function, vancomycin levels and doses with you during the course of therapy. Additional recommendations will appear in follow up notes. If you have any questions, please contact Geoff LongoriaD at mobile [phone]. Age: [age] year old Allergies: ALLERGIES No Known Allergies Last 3 Encounter Wt Readings: Date: Wt: 10/16/2019 76.7 kg (169 lb 1.5 oz) 09/12/2019 76.7 kg (169 lb) 09/02/2019 77.2 kg (170 lb 1.6 oz) Last 1 Encounter Ht Readings: Date: Ht: 10/16/2019 172.7 cm (5' 8) CrCl: Estimated Creatinine Clearance: 80.1 mL/min (based on SCr of 0.83 mg/dL). Temp (24hrs), Av.6 ?C (97.9 ?F), Min:36.2 ?C (97.2 ?F), Max:37 ?C (98.6 ?F) - Current Temp: 36.9 ?C (98.4 ?F) Labs BUN (mg/dL) Date Value 10/19/2019 8 (L) 10/18/2019 7 (L) 10/17/2019 14 Creatinine (mg/dL) Date Value 10/19/2019 0.83 10/18/2019 0.67 (L) 10/17/2019 0.64 (L) WBC (k/uL) Date Value 10/19/2019 6.72 10/18/2019 4.99 10/17/2019 6.10 Vancomycin Levels: Vancomycin, result (ug/mL) Date/Time Value 11/06/2013 0512 18.7 11/02/2013 1112 28.0 (H) Florence Roman, Pharm D, [facility] PROGRESS HNO ID: [id number] Author: Lesly Salvador Service: Vascular Surgery Author Type: Physician Type: Progress Notes Filed: 10/19/2019 1:26 PM Note Text: [facility] POSTOP PROGRESS NOTE Service Date: 10/19/2019Admit Date: 10/17/2019Service Time: 6:52 AM LOS: 1 day(s) Primary Service: Vascular Surgery Vascular Physician: Lesly Lopez MD Interval Events/Issues: Underwent procedure and transferred to ICU for monitoring Subjective Current Facility-Administered Medications Medication Dose Route Frequency - gabapentin 300 mg cap(s) (NEURONTIN) 300 mg ORAL BID - atorvastatin 40 mg tab(s) (LIPITOR) 40 mg ORAL DAILY - finasteride 5 mg tab(s) (PROSCAR) 5 mg ORAL DAILY - tamsulosin ER 0.4 mg cap(s) (FLOMAX) 0.4 mg ORAL DAILY - albuterol 2.5 mg /3 mL (0.083 %) 2.5 mg (PROVENTIL) 2.5 mg INHALATION q 6 H PRN - metoprolol tartrate (short acting) 25 mg tab(s) (LOPRESSOR) 25 mg ORAL BID - pantoprazole DR 40 mg tab(s) (PROTONIX) 40 mg ORAL DAILY (6 AM) - sertraline 100 mg tab(s) (ZOLOFT) 100 mg ORAL DAILY - NaCl 0.9% 3-5 mL 3-5 mL INTRAVENOUS q 12 H - ondansetron 4 mg tab(s) (ZOFRAN) 4 mg ORAL q 6 H PRN Or - ondansetron (PF) 4 mg injection (ZOFRAN) 4 mg INTRAVENOUS q 6 H PRN - nicotine 21 mg/24 hr 1 Patch (NICODERM) 1 Patch TRANSDERMAL DAILY And - nicotine -- REMOVE patch OTHER DAILY And - nicotine - verify patch OTHER q 8 H - oxyCODONE IR 5-10 mg tab(s) (ROXICODONE) 5-10 mg ORAL q 4 H PRN - HYDROmorphone 0.2 mg injection (DILAUDID) 0.2 mg INTRAVENOUS q 4 H PRN - budesonide 0.25 mg/2 mL 0.25 mg (PULMICORT) 0.25 mg INHALATION BID And - ipratropium-albuterol 3 mL nebulizer solution (DUONEB) 3 mL INHALATION QID - mirtazapine 15 mg (REMERON) 15 mg ORAL AT BEDTIME - senna 8.6 mg tab(s) (SENOKOT) 8.6 mg ORAL AT BEDTIME - piperacillin-tazobacta m iv piggyback 3.375 g in dextrose (iso-osmotic) 50 mL (ZOSYN) 3.375 g INTRAVENOUS q 6 H - vancomycin iv piggyback 1.25 g in D5W 250 mL (VANCOCIN) 0.015 g/kg/dose INTRAVENOUS q 12 HR - vancomycin dosing and monitoring per pharmacy OTHER As Directed - acetaminophen 1,000 mg tab(s) (TYLENOL) 1,000 mg ORAL q 6 H - amLODIPine 5 mg tab(s) (NORVASC) 5 mg ORAL DAILY - carBAMazepine XR 200 mg tab(s) (TEGretol XR) 200 mg ORAL BID - dicyclomine 20 mg tab(s) (BENTYL) 20 mg ORAL TID w MEALS - NaCl 0.9% iv infusion 30 mL/hr INTRAVENOUS CONTINUOUS Medication and Non-Pharmacologic VTE Prophylaxis/Anticoagul ants 10/17/19214 vte current anticoag therapy (nc,wi) 10/17/19214 pneumatic compression stockings ([place], [place]) VTE Prophylaxis: VTE prophylaxis appropriate ALLERGIES No Known Allergies Objective PHYSICAL EXAM: Patient Vitals for the past 24 hrs: BP Temp Temp src Pulse Resp SpO2 Height Weight 10/19/19 0600 (!) 127/49 ? ? 65 21 97 % ? ? 10/19/19 0500 (!) 113/48 ? ? 62 18 98 % ? ? 10/19/19 0400 132/51 36.9 ?C (98.4 ?F) Oral 64 17 98 % ? ? 10/19/19 0300 (!) 110/48 ? ? 66 18 95 % ? ? 10/19/19 0200 125/56 ? ? 66 19 96 % ? ? 10/19/19 0100 123/59 ? ? 69 20 92 % ? ? 10/19/19 0000 129/60 36.8 ?C (98.2 ?F) Oral 70 19 90 % ? 76.7 kg (169 lb 1.5 oz) 10/18/19 2300 (!) 113/47 ? ? 66 17 96 % ? ? 10/18/19 2200 96/64 ? ? 77 19 95 % ? ? 10/18/19 2100 (!) 121/49 ? ? 87 24 95 % ? ? 10/18/198 ? ? ? 84 15 97 % ? ? 10/18/19 2000 133/56 37 ?C (98.6 ?F) Oral 83 13 98 % ? ? 10/18/19 1900 (!) 135/33 ? ? 76 21 94 % ? ? 10/18/19 1800 144/74 ? ? 71 23 97 % ? ? 10/18/19 1741 ? 36.2 ?C (97.2 ?F) Temporal ? 10/18/19 1730 157/75 ? ? 76 20 95 % ? ? 10/18/19 1726 ? 77.2 kg (170 lb 3.1 oz) 10/18/19 1725 ? 172.7 cm (5' 8) 77.2 kg (170 lb 3.1 oz) 10/18/19 1700 148/52 ? ? 76 16 96 % ? ? 10/18/19 1629 122/66 ? ? 72 18 95 % ? ? 10/18/19 1615 123/68 ? ? 73 19 94 % ? ? 10/18/19 1600 133/60 ? ? 74 17 93 % ? ? 10/18/19 1545 144/63 ? ? 77 22 92 % ? ? 10/18/19 1530 146/63 36.4 ?C (97.5 ?F) Temporal Art 81 20 94 % ? ? 10/18/19 1115 131/56 36.2 ?C (97.2 ?F) Temporal Art ? 16 94 % ? ? 10/18/19 1052 ? ? ? 63 18 ? ? ? 10/18/19 1045 ? ? ? 65 16 95 % ? ? 10/18/19 0712 128/67 36.3 ?C (97.4 ?F) Oral 75 16 96 % ? ? 10/18/19 0710 ? ? ? 84 16 ? ? ? 10/18/19 0704 ? ? ? 67 16 97 % ? ? Intake/Output Summary (Last 24 hours) at 10/19/2019 0652 Last data filed at 10/19/2019 0600 Gross per 24 hour Intake 1841 ml Output 2575 ml Net -734 ml CONSTITUTIONAL: Well developed and No acute distress NEUROLOGIC/PSYCHIATRIC : Oriented to time, place AND person HEENT: EOM's intact LUNGS: Clear HEART: Regular rate AND rhythm ABDOMEN: Soft INTEGUMENTARY: Wound - No SURGICAL SITES: Groin - left; wound vac in place MUSCULOSKELETAL: No deformities Pulses/Signals: biphasic DP/PTS DATA: Laboratory: Recent Labs 10/19/19 0329 10/18/19 0709 10/17/19 0629 WBC 6.72 4.99 6.10 HB 8.8* 9.1* 9.5* HCT 28.5* 29.1* 29.9* PLT 425* 384 362 Recent Labs 10/19/19 0327 10/18/19 0709 10/17/19 1338 10/17/19 0629 10/17/19 0241 NA 140 140 -- 139 136 K 3.5 3.5 3.5 3.2* 3.4* BUN 8* 7* -- 14 15 CREAT 0.83 0.67* -- 0.64* 0.69* GLUC 110* 87 -- 104* 112* MG -- -- -- -- 2.0 Recent Labs 10/18/19 0709 10/17/19 1252 10/17/19 0629 10/17/19 0241 APTT -- -- -- 45.1* INR 1.5* 1.9* 4.8* 5.1* Assessment/Plan Impression: Pedro Pablo Sierra is a 69 year old White male referred by Dr. Lopez for an opinion regarding management of L groin incision drainage after recent surgery (listed below). Mr. Sierra underwent left?common femoral endarterectomy with bovine patch, redo.Thrombectomy of the occluded Left RADHA and EIA.Left common and external?iliac stents?(Cast x 2),?(Jessica x 2)?from the origin of the RADHA to the groin on 10/08/19. Two days later, he returned to the OR on 10/10/19 for hematoma evacuation,?Left EIA to TELEVISION REPORTER bypass with 7mm ringed PTFE, retrograde open RADHA angioplasty, and open thrombectomy?of?L iliac artery with extraction of previously placed stent that was crushed and thrombosed. Now admitted with concern for SSI and underwent wound debridement with placement of sartorius flap. ? Plan: Continue diet Continue neurovascular checks Bedrest for [address] Continue abx Wound vac to suction Will discuss timeline for resuming anticoagulation SIGNATURE: Ayad Tompkins MD PATIENT NAME: Pedro Pablo Sierra DATE: October 19, 2019 TIME: 6:52 AM PAGER/CONTACT #: [phone] Agree with the above note. The patient was seen and examined by me this morning. Clinically, he is doing well without sign of bleeding or sepsis. His peripheral pulses remained strong. He has moderately severe wound pain, as would be expected after fairly extensive debridement and muscle flap creation in the setting of a previously severely scarred groin from other vascular surgeries. Overall, he is doing well at this time. The plan is for 5 days of complete bed rest so as to avoid potential muscle flap disruption. We will restart low-dose heparin today, and plan on wound VAC change 3 times per week as per routine. We will decrease his wound VAC suction pressure given groin discomfort to see if this improves some of his pain in that location. The patient understands and agrees. Normal [facility] ANES POSTPROC EVALon 020 ANES POSTPROC EVAL HNO ID: [id number] Author: Dle Garner Service: ? Author Type: Anesthesiologist Type: Anesthesia Postprocedure Evaluation Filed: 10/18/2019 3:45 PM Note Text: POST ANESTHESIA EVALUATION NOTE : 1950 Procedure Summary Date: 10/18/19 Room / Location: OR04A / [facility] OR Anesthesia Start: 1245 Anesthesia Stop: 153 Procedure: EXPLORATION INGUINAL (Left Leg) Diagnosis: Wound infection (Wound infection [T14.8XXA, L08.9]) Surgeon: Lesly Salvador Responsible Provider: Del Garner Anesthesia Type: general ASA Status: 3 - Emergent Anesthesia Type: general Last vitals Vitals Value Taken Time BP 146/63 10/18/2019 3:30 PM Temp 36 10/18/2019 3:45 PM Pulse 81 10/18/2019 3:30 PM HR SpO2 10/18/2019 3:45 PM Resp 16 10/18/2019 3:30 PM SpO2 94 % 10/18/2019 3:30 PM Post Anesthesia Patient Status Patient Evaluation: PACU. PACU/ICU Patient Condition: stable. Anticipated Disposition: phase 2 then home. Neurological Status: aware and responsive. Pulmonary Status: breathing comfortably on room air . Airway Control: returned to baseline unsupported. Cardiovascular Status: stable. Pain Management: clinically adequate. Postoperative Hydration: acceptable. Intraoperative Events: no significant anesthesia events Anesthetic Observations: no significant anesthetic observations Recommendation: continue current plan of care. SIGNATURE: Del Garner MD PATIENT NAME: Pedro Pablo Sierra DATE: October 18, 2019 TIME: 3:45 PM CSN: [id number] [facility] ANES PRE-OPon 10-18-2019 ANES PRE-OP HNO ID: [id number] Author: Del Garner Service: ? Author Type: Anesthesiologist Type: Anesthesia Preprocedure Evaluation Filed: 10/18/2019 12:12 PM Note Text: ANESTHESIOLOGY DAY OF SURGERY NOTE : 1950 Procedure(s) (LRB): EXPLORATION INGUINAL (Left) Surgeon(s): Rob Salvador Estimated body mass index is 25.88 kg/m? as calculated from the following: Height as of 10/08/19: 172.7 cm (5' 8). Weight as of this encounter: 77.2 kg (170 lb 3.1 oz). Most recent hematocrit and potassium results: Hematocrit,POC 29.1 10/18/2019 Potassium, POC 3.5 10/18/2019 Relevant Problems CARDIO (+) CAD (coronary artery disease) (+) Headache, hemicrania continua (+) Hypertension (+) PVD (peripheral vascular disease) ([facility]) (+) s/p left femoral endarterectomy/aortoil iac stenting 10/08/2019 PULMONARY (+) COPD (chronic obstructive pulmonary disease) (HCC) (+) PJ (obstructive sleep apnea) ANESTHESIA (+) PJ (obstructive sleep apnea) NEURO-PSYCH (+) Headache GI (+) GERD (gastroesophageal reflux disease) I - PHYSICAL EVALUATION AIRWAY Patient intubated: No. Mallampati: II. TM distance: >3 FB. Neck ROM: full ROM without neurological symptoms. Mouth opening: adequate. DENTAL Normal dental observations. Dental findings: teeth intact and edentulous. Additional exam findings: yes. CARDIOVASCULAR Normal cardiovascular observations. Rhythm: regular Rate: normal PULMONARY Normal pulmonary observations. Breath sounds clear to auscultation. 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 II - ANESTHESIA PLAN ASA Score: 3; emergent. Anesthetic Plan: general The patient is not a current smoker. NPO Status: adequate Monitoring plan: standard ASA. Postoperative analgesic plan: multimodal analgesia. Anesthetic Risks, Benefits, Alternatives, Personnel Discussed. Consent obtained from: patient. Patient / Surrogate agrees to blood products: yes Significant changes in the patient condition since the History and Physical, not otherwise documented in primary service progress note: no. Potential Anesthesia issues that may suggest increased risk of complications or contractions to planned procedure: none. Vitals Value Taken Time BP 131/56 10/18/2019 11:15 AM Pulse 63 10/18/2019 10:52 AM Resp 16 10/18/2019 11:15 AM Temp 36.2 ?C (97.2 ?F) 10/18/2019 11:15 AM SpO2 94 % 10/18/2019 11:15 AM Facility-Administered Medications as of 10/18/2019 Medication Dose Route Frequency - [MAR Hold due to Transfer] vancomycin dosing and monitoring per pharmacy OTHER As Directed - acetaminophen 1,000 mg tab(s) (TYLENOL) 1,000 mg ORAL Pre-Op Once - promethazine 12.5 mg tab(s) (PHENERGAN) 12.5 mg ORAL Pre-Op Once - lactated ringers infusion 30 mL/hr INTRAVENOUS CONTINUOUS - [MAR Hold due to Transfer] dicyclomine 20 mg tab(s) (BENTYL) 20 mg ORAL TID w MEALS - [MAR Hold due to Transfer] carBAMazepine XR 200 mg tab(s) (TEGretol XR) 200 mg ORAL BID - [MAR Hold due to Transfer] gabapentin 300 mg cap(s) (NEURONTIN) 300 mg ORAL BID - [MAR Hold due to Transfer] atorvastatin 40 mg tab(s) (LIPITOR) 40 mg ORAL DAILY - [MAR Hold due to Transfer] finasteride 5 mg tab(s) (PROSCAR) 5 mg ORAL DAILY - [MAR Hold due to Transfer] tamsulosin ER 0.4 mg cap(s) (FLOMAX) 0.4 mg ORAL DAILY - [MAR Hold due to Transfer] albuterol 2.5 mg /3 mL (0.083 %) 2.5 mg (PROVENTIL) 2.5 mg INHALATION q 6 H PRN - [MAR Hold due to Transfer] metoprolol tartrate (short acting) 25 mg tab(s) (LOPRESSOR) 25 mg ORAL BID - [MAR Hold due to Transfer] amLODIPine 5 mg tab(s) (NORVASC) 5 mg ORAL DAILY - [MAR Hold due to Transfer] pantoprazole DR 40 mg tab(s) (PROTONIX) 40 mg ORAL DAILY (6 AM) - [MAR Hold due to Transfer] sertraline 100 mg tab(s) (ZOLOFT) 100 mg ORAL DAILY - [MAR Hold due to Transfer] NaCl 0.9% 3-5 mL 3-5 mL INTRAVENOUS q 12 H - [MAR Hold due to Transfer] ondansetron 4 mg tab(s) (ZOFRAN) 4 mg ORAL q 6 H PRN Or - [MAR Hold due to Transfer] ondansetron (PF) 4 mg injection (ZOFRAN) 4 mg INTRAVENOUS q 6 H PRN - [MAR Hold due to Transfer] acetaminophen 650 mg tab(s) (TYLENOL) 650 mg ORAL q 6 H PRN - [MAR Hold due to Transfer] nicotine 21 mg/24 hr 1 Patch (NICODERM) 1 Patch TRANSDERMAL DAILY And - [MAR Hold due to Transfer] nicotine -- REMOVE patch OTHER DAILY And - [MAR Hold due to Transfer] nicotine - verify patch OTHER q 8 H - [MAR Hold due to Transfer] oxyCODONE IR 5-10 mg tab(s) (ROXICODONE) 5-10 mg ORAL q 4 H PRN - [MAR Hold due to Transfer] HYDROmorphone 0.2 mg injection (DILAUDID) 0.2 mg INTRAVENOUS q 4 H PRN - [MAR Hold due to Transfer] budesonide 0.25 mg/2 mL 0.25 mg (PULMICORT) 0.25 mg INHALATION BID And - [MAR Hold due to Transfer] ipratropium-albuterol 3 mL nebulizer solution (DUONEB) 3 mL INHALATION QID - [MAR Hold due to Transfer] mirtazapine 15 mg (REMERON) 15 mg ORAL AT BEDTIME - [AUG Hold due to Transfer] senna 8.6 mg tab(s) (SENOKOT) 8.6 mg ORAL AT BEDTIME - [AUG Hold due to Transfer] piperacillin-tazobacta m iv piggyback 3.375 g in dextrose (iso-osmotic) 50 mL (ZOSYN) 3.375 g INTRAVENOUS q 6 H - [AUG Hold due to Transfer] vancomycin iv piggyback 1.25 g in D5W 250 mL (VANCOCIN) 0.015 g/kg/dose INTRAVENOUS q 12 HR - [COMPLETED] potassium chloride iv piggyback 20 mEq/100 mL 20 mEq INTRAVENOUS ONCE - [AUG Hold due to Transfer] NaCl 0.9% iv infusion 75 mL/hr INTRAVENOUS CONTINUOUS Outpatient Medications as of 10/18/2019 Medication Sig - warfarin (COUMADIN) 5 mg tablet Take 1 tablet by mouth once daily. Take 5mg daily on 10/13, 10/14 with INR check on 10/15. PCP will redose Warfarin based on INR results. - benzonatate (TESSALON PERLES) 100 mg capsule Take 1 capsule by mouth three times daily as needed for Cough. - clopidogrel (PLAVIX) 75 mg tablet Take 1 tablet by mouth once daily. - gabapentin (NEURONTIN) 300 mg capsule Take 1 capsule by mouth twice daily for 180 days. - atorvastatin (LIPITOR) 40 mg tablet Take 1 tablet by mouth once daily. - carBAMazepine XR (TEGRETOL XR) 200 mg 12 hr tablet Take 1 tablet by mouth twice daily. - amLODIPine (NORVASC) 5 mg tablet Take 1 tablet by mouth once daily. - fluticasone-umeclidin- vilanter (TRELEGY ELLIPTA) 100-62.5-25 mcg dsdv Inhale 1 Puff as instructed once daily. - nicotine (NICODERM CQ) 14 mg/24 hr Apply 1 Patch as directed every 24 hours. - finasteride (PROSCAR) 5 mg tablet Take 1 tablet by mouth once daily. - tamsulosin ER (FLOMAX) 0.4 mg cap Take 1 capsule by mouth once daily. - pantoprazole DR (PROTONIX) 40 mg tablet Take 1 tablet by mouth once daily. - mirtazapine (REMERON) 15 mg tablet Take 1 tablet by mouth daily at bedtime. - metoprolol tartrate, short acting, (LOPRESSOR) 25 mg tablet Take 1 tablet by mouth twice daily. - hydrOXYzine HCl (ATARAX) 50 mg tablet Take 1 tablet by mouth three times daily as needed. - sertraline (ZOLOFT) 100 mg tablet Take 1 tablet by mouth once daily. - dicyclomine (BENTYL) 20 mg tablet Take 1 tablet by mouth three times daily with meals. - guaiFENesin (ROBITUSSIN) 100 mg/5 mL syrup Take 5 mL by mouth every 4 hours as needed for Cough. - perflutren lipid microspheres (DEFINITY) 1.1 mg/mL injection (to be provided with echo procedure) Inject 1.3 mL intravenously as directed. Administration Instructions: If no IV access, insert saline lock prior to administering contrast. Discontinue saline lock post exam. If patient has central line or IVAD, may access for administration according to line specific nursing protocol. Once exam is complete, flush line and de-access per line specific nursing protocol. Diluted IV Bolus: Dilute 1.3 ml of Definity with 8.7 ml of preservative-free saline. - nicotine (NICODERM CQ) 21 mg/24 hr Apply 1 Patch as directed every 24 hours. APPLY ONE(1) PATCH DAILY. - nicotine (NICODERM CQ) 7 mg/24 hr Apply 1 Patch as directed every 24 hours. - senna (SENNA CONCENTRATE) 8.6 mg tab Take 1 tablet by mouth daily at bedtime. - >Nebulizer For Home Nebulizer for home use. Diagnosis: Pulmonary emphysema, unspecified emphysema type (HCC) [J43.9] - albuterol HFA (VENTOLIN HFA) 90 mcg/actuation inhaler Inhale 2 Puffs as instructed every 4 hours as needed. - peg 3350-Electrolytes (GOLYTELY) 236-22.74-6.74 -5.86 gram suspension Please take this Golytely solution in its entirety on Monday in preparation for your capsule endoscopy on Monday. Do not eat any solid foods, instead drink clear liquids until you have clear bowel movements. - COMPOUNDED PRESCRIPTION Aerosol supplies Dx:J44.1 NPI#[id number] - ipratropium-albuterol (DUONEB) 0.5 mg-3 mg(2.5 mg base)/3 mL nebu Inhale 3 mL as instructed every 6 hours as needed (wheezing). Use over 5-15minutes per nebulizer. - COMPOUNDED PRESCRIPTION NEBULIZER FOR HOME USE. DX: Emphysema, COPD - Back Brace misc Rigid back brace for compression Fx L3 support. - HYDROcodone-acetaminop hen (NORCO) 5-325 mg per tablet Take 1 tablet by mouth as directed. - lidocaine 4 % gel Apply 1 Patch as directed every 24 hours. - Blood Pressure Monitor kit Check bp 2 to 3x daily I have interviewed and examined the patient. I have reviewed the medical record and/or the pre-anesthesia evaluation, pertinent labs, and test results. This contains updated information obtained within 48 hours of Surgery/Procedure. SIGNATURE: Del Garner MD PATIENT NAME: Pedro Pablo Sierra DATE: October 18, 2019 TIME: 12:11 PM CSN: [id number] [facility] Anaerobe Cultureon 0 Anaerobe Culture Sp. Request/Comment: - Eswab Culture Result - Negative for anaerobes. Normal [facility] Comment on above: Performed By: #### A NACUL ####[facility] [id number] [place], [place] [phone] Basic Metabolic Panlon 10-17 Anion gap [Moles/Vol] 12 mmol/L Normal 9-18 [facility] Comment on above: Performed By: #### P T, BMP, CBCDIF ####[place] [id number] [place], [place] [phone] Calcium [Mass/Vol] 8.4 mg/dL Low 8.5-10.5 [facility] Comment on above: Performed By: #### P T, BMP, CBCDIF ####[place] [id number] [place], [place] [phone] Chloride [Moles/Vol] 103 mmol/L Normal 98-110 [facility] Comment on above: Performed By: #### P T, BMP, CBCDIF ####[place] [phone] CO2 [Moles/Vol] 25 mmol/L Normal 23-32 [facility] Comment on above: Performed By: #### P T, BMP, CBCDIF ####[place] [phone] Creatinine [Mass/Vol] 0.67 mg/dL Low 0.70-1.40 [facility] Comment on above: Performed By: #### P T, BMP, CBCDIF ####[place] [phone] eGFR- Amer. >60 Normal >60 [facility] Comment on above: Performed By: #### P T, BMP, CBCDIF ####[place] [phone] GFR/1.73 sq M predicted among non-blacks MDRD (S/P/Bld) [Vol rate/Area] mL/min/{1.73_m2} Normal >60 [facility] Comment on above: Performed By: #### P T, BMP, CBCDIF ####[place] [phone] Glucose [Mass/Vol] 87 mg/dL Normal 65-100 [facility] Comment on above: Performed By: #### P T, BMP, CBCDIF ####[place] [phone] Potassium [Moles/Vol] 3.5 mmol/L Normal 3.5-5.0 [facility] Comment on above: Performed By: #### P T, BMP, CBCDIF ####[place] [phone] Sodium [Moles/Vol] 140 mmol/L Normal 135-146 [facility] Comment on above: Performed By: #### P T, BMP, CBCDIF ####[place] [phone] Urea nitrogen [Mass/Vol] 7 mg/dL Low 10-25 [facility] Comment on above: Performed By: #### P T, BMP, CBCDIF ####[place] [phone] CBC and Differentialon 10-17 Abs Baso 0.04 k/uL Normal <0.11 [facility] Comment on above: Performed By: #### P T, BMP, CBCDIF ####[place] [phone] Abs Phelps 0.47 k/uL Normal <0.87 [facility] Comment on above: Performed By: #### P T, BMP, CBCDIF ####[place] [phone] Abs Neut 3.25 k/uL Normal 1.45-7.50 [facility] Comment on above: Performed By: #### P T, BMP, CBCDIF ####[place] [phone] Absolute nRBC <0.01 Normal <0.01 [facility] Comment on above: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 inflammation and reactive changes. One benign lymph node. JRG/CORINA/rw 10/22/2019 Rashawn More M.D. (Electronic Signature) _ SPECIMEN SUBMITTED A: LEFT GROIN TISSUE CLINICAL DATA POSTOP INFECTION, WOUND INFECTION; EXPLORATION INGUINAL GROSS DESCRIPTION A. Received in formalin designated left groin tissue are multiple coley finley dusky and rubbery fragments of tissue that aggregate to 3.5 x 3 x 1.5 cm. Apprenticeship Representative sections are submitted in one cassette. WE/rw 10/21/2019 Gross examination performed at [facility], [address] [place] [address] Date of Report: 10/23/2019 Date of Procedure: 10/18/2019 Date of Receipt: 10/21/2019 Submitted by: Lesly Lopez M.D. Location: [facility] Diagnostic interpretation performed at [facility], [address] [address]. CLIA Number: [id number] Normal [facility] Wound Culture/Stainon 2019 Wound Culture/Stain Sp. Request/Comment: - Eswab Smear Result - No organisms seen Rare Polymorphonuclear leukocytes Rare Mononuclear cells Many Red Blood Cells Culture Result - Rare Klebsiella pneumoniae --> ABNORMAL ALERT Rare skin kishore ORGANISM: Klebsiella pneumoniae METHOD: Minimum inhibitory concentration(Vitek) Antibiotic Interp LACI Status Ampicillin RESISTANT >=32 F Gentamicin SUSCEPTIBLE <=1 F Trimeth sulfameth SUSCEPTIBLE <=20 F Ciprofloxacin SUSCEPTIBLE <=0.25 F Cefepime SUSCEPTIBLE <=1 F Piperacillin/Tazobac SUSCEPTIBLE <=4 F Ampicillin Sulbact SUSCEPTIBLE 4 F Ceftriaxone SUSCEPTIBLE <=1 F Meropenem SUSCEPTIBLE <=0.25 F Ertapenem SUSCEPTIBLE <=0.5 F Critically abnormal [facility] Comment on above: Performed By: #### W CUL ####[facility] [address] [place], [place] [phone] [facility] 10-17-2019 ALL[facility]ALTH HNO ID: [id number] Author: Angela Anderson (Chaplain) Service: Spiritual Care Author Type: Placement Coordinator Type: Allied Health Filed: 10/17/2019 12:25 PM Note Text: SPIRITUAL CARE ASSESSMENT SERVICE DATE: 10/17/2019 Visit with: Patient Length of visit (minutes): 10 Baptist / Spirituality: Quaker Reason: Referral; pre-surgery ASSESSMENT Emotional Disposition: Angry, Helpless and Lonely INTERVENTIONS Empowerment: Normalized experience of patient/family Exploration: Explored emotional needs and resources and Explored spiritual needs and resources OUTCOMES Patient debriefed/defused their experience PLAN Will follow up as requested SIGNATURE: Chaplain Riley PATIENT NAME: Pedro Pablo Sierra DATE: October 17, 2019 TIME: 12:23 PM PAGER/CONTACT #: [phone] [facility] HNO ID: [id number] Author: DEANNE Rucker (Ct) Service: Radiology Author Type: Oven Worker Type: Allied Health Filed: 10/17/2019 11:29 AM Note Text: Radiology Service Progress Note PATIENT NAME: Pedro Pablo Sierra DATE OF SERVICE: October 17, 2019 TIME: 11:28 AM PATIENT IDENTITY VERIFICATION COMPLETED USING TWO (2) IDENTIFIERS: Name and Date of confirmed by patient verbally. FALL SCREENING: Has the patient had 2 falls in the last year or 1 fall with injury or currently using an Ambulatory Assistive Device (Walker, Cane, Wheelchair, Crutches, etc.)? Yes, Patient High Risk for Falls What interventions were put in place to prevent falls during this visit? Increased Observations by Caregivers PATIENT GENDER DATA: Male PATIENT RELEVANT IMPLANT DATA REVIEWED: Not Applicable RADIOLOGY DEPARTMENT: CT; Exam(s) Completed: CTA Abdomen Pelvis PERIPHERAL IV DATA: Inpatient: see LDA documentation SIGNED BY: DEANNE Rucker October 17, 2019 11:28 AM Normal [facility] APTTon 10-17-2019 aPTT Coag (Bld) [Time] 45.1 s High 23.0-32.4 [facility] Comment on above: Result Comment: Unfr actionated Heparin Therapeutic Ranges: Standard Heparin Nomogram: 53 to 78 seconds (anti-Xa level of 0.3 to 0.7 U/ml) Low Dose/ACS Nomogram: 49 to 67 seconds (anti-Xa level of 0.2 to 0.5 U/ml) Stroke Treatment Nomogram: 49 to 67 seconds (anti-Xa level of 0.2 to 0.5 U/ml) Note: The APTT therapeutic range has been determined for the current lot of laboratory APTT reagent in use throughout the [facility]. Performed By: #### C BC, CMP, MG1, PHOS, PTT, PT ####[facility] [place], [place] [phone] CASE MGT INIT ASSESon 2019 CASE MGT INIT [facility] HNO ID: [id number] Author: Mary Carmen (Rn) Patito Meredith RN Service: Nursing Author Type: Registered Nurse Type: Care Mgt Initial Assessment Filed: 10/17/2019 2:57 PM Note Text: CARE MANAGEMENT: ASSESSMENT AND DISCHARGE PLAN SERVICE DATE: October 17, 2019 SERVICE TIME: 12:52 PM PRIMARY CARE PHYSICIAN: DAIJA MORTON MD ADMISSION STATUS: Observation Needs Prior to Discharge: To Be Determined MEDICAL: [facility] MEDICARE 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 Last discharge within 30 days: Yes Is this a planned readmission?: No Unplanned Reason: Other: See Comment(non healing wound) Followed Up with Appointment Prior to Admission: Appointment completed Advance Directive: Current Advance Directive: Health Care Power of Cube Machine Tender In Chart: Yes Up To Date and Valid: Yes Health LiteracyHow often do you need to have someone help you when you read instructions, pamphlets, or other written material from your doctor or pharmacy? : 1 - Never How confident are you filling out medical forms by yourself?: 1 - Extremely If Patient scores > 3 on either question, the following interventions were put into place:: Patient did not score > 3 on either question. Baseline Mental Status Prior to this Illness what was the patient's Baseline Mental Status?: Alert AND Oriented Prior to this illness, has anyone described the patient having any of the following behaviors?: Not Applicable Relationship of the informant to the patient:: Self Functional Status: Independent Does Patient Currently Receive Any Community Services or Home Care?: Home Health Care Agency;Meals on Wheels([place] [phone] SN/OT/PT) Equipment Prior to Admission: Walker SOCIAL: Living Arrangements: Home Lives With: Alone Financial Resources: RetiredPrimary Contact: Extended Emergency Contact Information Primary Emergency Contact: Michelle Richmond Mobile Relation: Daughter Secondary Emergency Contact: Joseph Burrell Mobile Relation: Relative Supportive Patient Contact:: Yes Contact Resources: Other;Significant Other Other Contact Name/Phone: MarceloAndtixmegan reaves/ [facility] [employer] ([facility]) [phone] Social Needs Food insecurity Worry: Sometimes true Inability: Never true Resources Needed: No Social Needs Financial resource strain: Not hard at all Social Needs Transportation needs Medical: No Non-medical: No Caregiver AssessmentCaregiver is ready, willing and able to meet the patient's needs as recommended by the inter-professional team:: Other: See Comment(TBD) Does the patient have an acute stroke diagnosis, or has the patient had a stroke during this admission?: No Patient's transition needs and plan for meeting these needs: HHC vs SNF Patient's perception of need for this admission: was recently at hospital. Had increased drainage of incision site. Physician told him to go to hospital. Medication Adherance I am convinced of the importance of my prescription medication: 0 - Agree Completely I worry that my prescription medication will do more harm than good to me : 0 - Disagree Completely I feel financially burdened by my [id number] expenses for my prescription medication:: 0 - Disagree Completely Risk Score: 0 Patient is categorized as: Low risk < 2 Are you interested in bedside delivery of your medications? No Is Patient Psychosocially Complex?: No ASSESSMENT AND PLAN: Medical Needs: Medical Needs: Durable Medical Equipment;Fall risk or frequent falls;Two or more chronic diseases Psychosocial Needs: Psychosocial Needs: None FREEDOM OF CHOICE EXPLAINED: POTENTIAL TRANSITION PLANS To Be Determined Met with patient at bedside. Patient here d/t increased drainage of L leg procedure and supratherapeutic INR. Patient is from home alone. He is retired and does not drive; he depends on his daughter and ex (Joseph [phone]) for transportation. He receives waiver services w/ [facility] for SN/OT. He receives Meals on Wheels 9 meals/wk plus some groceries. Patient to have exploration of Inguinal site today 10/16. Additional care needs TBD. TCC remains available for plan of care and transitional care needs as they arise. 1445: Liseth w/ [facility] ([facility]) [phone] call for to update on svcs received. [facility] patient receives waiver services through counts include 234 beds at the [facility] for HHC (SN/PT/OT), meals, and emergency health line. Would like to be updated on discharge plans once known. SIGNATURE: Mary Carmen Meredith RN PATIENT NAME: Pedro Pablo Sierra DATE: October 17, 2019 TIME: 12:52 PM PAGER/CONTACT #: [phone] Normal [facility] CBCon 10-17-2019 Erythrocyte distribution width (RBC) [Ratio] 16.9 % High 11.5-15.0 [facility] Comment on above: Performed By: #### C BC, CMP, MG1, PHOS, PTT, PT ####[facility] [place], [place] [phone] Hematocrit (Bld) [Volume fraction] 32.3 % Low 39.0-51.0 [facility] Comment on above: Performed By: #### C BC, CMP, MG1, PHOS, PTT, PT ####[place] [id number] [place], [place] [phone] Hemoglobin (Bld) [Mass/Vol] 10.4 g/dL Low 13.0-17.0 [facility] Comment on above: Performed By: #### C BC, CMP, MG1, PHOS, PTT, PT ####[place] [phone] MCH (RBC) [Entitic mass] 30.3 pG Normal 26.0-34.0 [facility] Comment on above: Performed By: #### C BC, CMP, MG1, PHOS, PTT, PT ####[place] [phone] MCHC (RBC) [Mass/Vol] 32.2 g/dL Normal 30.5-36.0 [facility] Comment on above: Performed By: #### C BC, CMP, MG1, PHOS, PTT, PT ####[place] [phone] MCV (RBC) [Entitic vol] 94.2 fL Normal 80.0-100.0 [facility] Comment on above: Performed By: #### C BC, CMP, MG1, PHOS, PTT, PT ####[place] [phone] Platelet mean volume (Bld) [Entitic vol] 9.4 fL Normal 9.0-12.7 [facility] Comment on above: Performed By: #### C BC, CMP, MG1, PHOS, PTT, PT ####[place] [phone] Platelets (Bld) [#/Vol] 402 10*3/uL High 150-400 [facility] Comment on above: Result Comment: Resu lt checked and verified Performed By: #### C BC, CMP, MG1, PHOS, PTT, PT ####[place] [phone] RBC (Bld) [#/Vol] 3.43 10*6/uL Low 4.20-6.00 [facility] Comment on above: Performed By: #### C BC, CMP, MG1, PHOS, PTT, PT ####[place] [phone] WBC (Bld) [#/Vol] 7.04 10*3/uL Normal 3.70-11.00 [facility] Comment on above: Performed By: #### C BC, CMP, MG1, PHOS, PTT, PT ####[place] [phone] CBC and Differentialon 10-16 Abs Baso 0.06 k/uL Normal <0.11 [facility] Comment on above: Performed By: #### P T, CMP, CBCDIF ####[place] [phone] Abs Phelps 0.63 k/uL Normal <0.87 [facility] Comment on above: Performed By: #### P T, CMP, CBCDIF ####[place] [phone] Abs Neut 4.18 k/uL Normal 1.45-7.50 [facility] Comment on above: Performed By: #### P T, CMP, CBCDIF ####[phone] Absolute nRBC <0.01 Normal <0.01 [facility] Comment on above: Performed By: #### P T, CMP, CBCDIF ####[place] [phone] Basophils/100 WBC (Bld) 1.0 % Normal [facility] Comment on above: Performed By: #### P T, CMP, CBCDIF ####[place] [phone] DTYPE Auto Diff Normal [facility] Comment on above: Performed By: #### P T, CMP, CBCDIF ####[place] [phone] Eosinophils (Bld) [#/Vol] 0.16 10*3/uL Normal <0.46 [facility] Comment on above: Performed By: #### P T, CMP, CBCDIF ####[place] [phone] Eosinophils/100 WBC (Bld) 2.6 % Normal [facility] Comment on above: Performed By: #### P T, CMP, CBCDIF ####[place] [phone] Erythrocyte distribution width (RBC) [Ratio] 16.8 % High 11.5-15.0 [facility] Comment on above: Performed By: #### P T, CMP, CBCDIF ####[place] [phone] Hematocrit (Bld) [Volume fraction] 29.9 % Low 39.0-51.0 [facility] Comment on above: Performed By: #### P T, CMP, CBCDIF ####[place] [phone] Hemoglobin (Bld) [Mass/Vol] 9.5 g/dL Low 13.0-17.0 [facility] Comment on above: Performed By: #### P T, CMP, CBCDIF ####[phone] Lymphocytes (Bld) [#/Vol] 1.07 10*3/uL Normal 1.00-4.00 [facility] Comment on above: Performed By: #### P T, CMP, CBCDIF ####[place] [phone] Lymphocytes/100 WBC (Bld) 17.5 % Normal [facility] Comment on above: Performed By: #### P T, CMP, CBCDIF ####[place] [phone] MCH (RBC) [Entitic mass] 30.2 pG Normal 26.0-34.0 [facility] Comment on above: Performed By: #### P T, CMP, CBCDIF ####[place] [phone] MCHC (RBC) [Mass/Vol] 31.8 g/dL Normal 30.5-36.0 [facility] Comment on above: Performed By: #### P T, CMP, CBCDIF ####[place] [phone] MCV (RBC) [Entitic vol] 94.9 fL Normal 80.0-100.0 [facility] Comment on above: Performed By: #### P T, CMP, CBCDIF ####[place] [phone] Monocytes/100 WBC (Bld) 10.3 % Normal [facility] Comment on above: Performed By: #### P T, CMP, CBCDIF ####[place] [phone] Neutrophils/100 WBC (Bld) 68.6 % Normal [facility] Comment on above: Performed By: #### P T, CMP, CBCDIF ####[place] [phone] NRBCs 0.0 /100 WBC Normal 0 [facility] Comment on above: Performed By: #### P T, CMP, CBCDIF ####[place] [phone] Platelet mean volume (Bld) [Entitic vol] 9.6 fL Normal 9.0-12.7 [facility] Comment on above: Performed By: #### P T, CMP, CBCDIF ####[place] [phone] Platelets (Bld) [#/Vol] 362 10*3/uL Normal 150-400 [facility] Comment on above: Performed By: #### P T, CMP, CBCDIF ####[place] [phone] RBC (Bld) [#/Vol] 3.15 10*6/uL Low 4.20-6.00 [facility] Comment on above: Performed By: #### P T, CMP, CBCDIF ####[facility] [place], [place] [phone] WBC (Bld) [#/Vol] 6.10 10*3/uL Normal 3.70-11.00 [facility] Comment on above: Performed By: #### P T, CMP, CBCDIF ####[facility] [place], [place] [phone] CTA ABD/PEL/LOWER EXT W IVCO Non 10-17-2019 CTA ABD/PEL/LOWER EXT W IVCON * * *Final Report* * * DATE OF EXAM: Oct 17 2019 11:38AM FVC 0122 - CTA ABD/PEL/LOWER EXT W IVCON / PROCEDURE REASON: Other primary vasculopathy * * * * Physician Interpretation * * * * CT ANGIOGRAM OF THE ABDOMEN, PELVIS, AND BILATERAL LOWER EXTREMITIES HISTORY: History of left groin pain; history of recent surgeries with concern for loss of lower extremity pulses; Status post L groin incision drainage after recent surgery (listed below). Mr. Sierra underwent left?common femoral endarterectomy with bovine patch, redo.Thrombectomy of the occluded Left RADHA and EIA.Left common and external?iliac stents?(Cast x 2),?(Jessica x 2)?from the origin of the RADHA to the groin?on 10/08/19. Two days later, he returned to the OR on 10/10/19 for hematoma evacuation,?Left EIA to TELEVISION REPORTER bypass with 7mm ringed PTFE, retrograde open RADHA angioplasty, and open thrombectomy?of?L iliac artery with extraction of previously placed stent that was crushed and thrombosed. TECHNIQUE: High-resolution contrast-enhanced helical CT of the abdomen, pelvis and both lower extremities was performed, timed to the arterial phase. 3-D processing was performed by the physician on an independent work station, with MIP and volume-rendering techniques. Total of 120 ml of Omnipaque 350 was injected IV during the examination. The study was performed without oral contrast. The patient tolerated the injection without complications. Dose-Length Product (DLP): 1008 mGy*cm. CT Dose Reduction Employed: Automated exposure control (AEC) RESULT: COMPARISON: Comparison is made to prior study dated 07/18/2019. ABDOMEN AND PELVIS: VASCULAR FINDINGS: Images of the abdominal aorta demonstrate moderate diffuse atherosclerotic disease, scattered regions of mural thrombus, ulcerative plaque, with peripheral calcification. The aorta is within normal limits in size, without evidence for aneurysmal dilation, or dissection. The celiac artery demonstrates mild-moderate ostial narrowing, grossly unchanged in comparison to the prior study. The superior and inferior mesenteric arteries demonstrate mild diffuse atherosclerotic disease, without evidence for flow-limiting stenosis. There are single renal arteries bilaterally, with the right renal artery demonstrating mild-moderate diffuse atherosclerotic disease, most pronounced at its ostium, with the left renal artery demonstrating moderate-severe diffuse atherosclerotic disease, adjacent to its ostium, unchanged in appearance in comparison to the prior study. RIGHT LEG: The right common iliac artery demonstrates a patent stent graft, with diffuse atherosclerotic disease identified. The right internal iliac artery demonstrates diffuse atherosclerotic disease, with dense calcification, however is patent. The right external iliac artery demonstrates a patent stent graft extended from the common iliac artery, that is patent. The right common femoral artery demonstrates mild diffuse atherosclerotic disease, however is patent. The right profunda femoris demonstrates mild-moderate diffuse atherosclerotic disease, most pronounced at its mid aspect, however is patent. The right superficial femoral artery demonstrates moderate diffuse atherosclerotic disease, most pronounced at its mid and distal aspects, however is patent. The right popliteal artery demonstrates mild diffuse atherosclerotic disease, patent. The right anterior tibial artery demonstrates moderate-severe diffuse atherosclerotic disease, with scattered regions of punctate calcification, is diffusely diminutive in caliber, however visualized in its entirety. The dorsalis pedis is seen, diminutive in caliber, however patent into the foot. The right tibioperoneal trunk demonstrates diffuse atherosclerotic disease, with punctate calcifications, is diminutive in caliber, however patent. The right posterior tibial artery is diminutive in caliber, however patent into the foot. The right peroneal artery demonstrates atherosclerotic disease, is diffusely diminutive in caliber, visualized to the ankle, then anastomosis anteriorly. LEFT LEG: The left common iliac artery demonstrates a patent stent graft, however with moderate in-stent narrowing in its proximal and mid aspects most prominently, however to a lesser degree in its distal aspect. The left internal iliac artery is identified, patent, however diffusely diminutive in caliber. The left postoperative external iliac artery again demonstrates a stent graft with moderate diffuse atherosclerotic disease, most pronounced at its proximal and mid aspects, and to a significantly lesser degree in its distal aspect, however patent. Left common iliac artery demonstrates multifocal postoperative changes, with evidence of a focal pseudoaneurysm measuring 7 mm at the surgical anastomosis. No active extravasation is identified in the region of the bypass/postoperative anastomosis. Fluid is visualized in the region, consistent with postoperative hematoma. Additionally, there is hematoma within the left hemipelvis, likely postoperative in nature. The left superficial femoral artery is diminutive in caliber, with diffuse atherosclerotic disease, however patent. The left profunda femoris demonstrates mild diffuse atherosclerotic disease, however is patent. The left popliteal artery is diminutive in caliber, however patent. The left anterior tibial artery demonstrates diffuse atherosclerotic disease, diminutive in caliber, however visualized into the foot. Dorsalis pedis is identified, patent. The left tibioperoneal trunk demonstrates diffuse atherosclerotic disease, diminutive in caliber, however patent. The left posterior tibial artery is markedly diminutive in caliber, however visualized in its entirety, patent. Left the left posterior tibial artery is visualized in the foot. The peroneal artery is visualized, and supplies significant portions of the lower extremity in addition to the anterior tibial artery, is patent to the ankle, with multiple branches identified. NONVASCULAR FINDINGS: Imaging of the lung bases demonstrate diffuse hyperinflation, with bibasilar atelectasis, without evidence for pleural effusion, pulmonary edema, or focal parenchymal pneumonia. The heart is within normal limits in size. The liver, spleen, and pancreas are unremarkable. Gallstones are identified within a dilated gallbladder, unchanged. There is no evidence of intra or extrahepatic biliary dilation. There is a 1.5 x 1.1 cm right adrenal nodule, and a 3.4 x 3.1 cm left adrenal nodule, unchanged from prior exam and consistent with with adrenal adenomas. The bilateral kidneys are without evidence for hydroureteronephrosis. The visualized loops of small and large bowel are without evidence for obstruction or focal inflammatory changes. No pathologically enlarged abdominal or pelvic lymph nodes are identified. Incidental note is made of several enhancing lymph nodes within the left groin, slightly enlarged in comparison to the prior study, likely reactive in nature. The urinary bladder is visualized, with air identified, likely secondary to recent instrumentation, correlation is recommended. The prostate is enlarged in size, with punctate calcifications, correlation with prostate serologies is recommended. Multiple sclerotic lesions are identified in again identified within the right iliac and left femoral head, unchanged. Multilevel discogenic degenerative changes of thoracolumbar spine are identified, with compression deformity of the L3 superior endplate again noted. IMPRESSION: 1. MULTIFOCAL POSTOPERATIVE CHANGES IS IDENTIFIED, WITH EVIDENCE OF LEFT GROIN AND LEFT RETROPERITONEAL HEMATOMA IDENTIFIED, 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 NO EVIDENCE FOR ACTIVE EXTRAVASATION. 2. MODERATE DIFFUSE ATHEROSCLEROTIC DISEASE, WITH PATENCY OF THE RIGHT ANTERIOR AND POSTERIOR TIBIAL ARTERIES INTO THE FOOT, PATENT TO THE RIGHT PERONEAL ARTERY TO THE ANKLE, THEN ANASTOMOSING ANTERIORLY. PATENCY OF THE LEFT ANTERIOR TIBIAL ARTERY INTO THE FOOT THE DOMINANT VESSEL, AND TO A LESSER DEGREE THE LEFT PERONEAL ARTERY, AND ALTHOUGH THE LEFT POSTERIOR TIBIAL ARTERIES IDENTIFIED, IS MARKEDLY DIMINUTIVE IN CALIBER, HOWEVER VISUALIZED INTO THE FOOT. Additional findings as described. Live Source Operator: PSCB Transcribe Date/Time: Oct 17 2019 11:56A Dictated by : VIVIAN RASCON III, MD This examination was interpreted and the report reviewed and electronically signed by: VIVIAN RASCON III, MD on Oct 17 2019 12:55PM EST [id number] Normal [facility] Comp Metabolic Panelon 10-16 Albumin [Mass/Vol] 3.1 g/dL Low 3.5-5.0 [facility] Comment on above: Performed By: #### P T, CMP, CBCDIF ####[place] [phone] ALP [Catalytic activity/Vol] 60 U/L Normal 38-113 [facility] Comment on above: Performed By: #### P T, CMP, CBCDIF ####[address] [phone] ALT [Catalytic activity/Vol] 58 U/L High 5-50 [facility] Comment on above: Performed By: #### P T, CMP, CBCDIF ####[address] [phone] Anion gap [Moles/Vol] 12 mmol/L Normal 9-18 [facility] Comment on above: Performed By: #### P T, CMP, CBCDIF ####[place] [phone] AST [Catalytic activity/Vol] 56 U/L High 7-40 [facility] Comment on above: Performed By: #### P T, CMP, CBCDIF ####[phone] Bilirubin [Mass/Vol] 0.4 mg/dL Normal 0.2-1.3 [facility] Comment on above: Performed By: #### P T, CMP, CBCDIF ####[place] [phone] Calcium [Mass/Vol] 8.0 mg/dL Low 8.5-10.5 [facility] Comment on above: Performed By: #### P T, CMP, CBCDIF ####[phone] Chloride [Moles/Vol] 103 mmol/L Normal 98-110 [facility] Comment on above: Performed By: #### P T, CMP, CBCDIF ####[place] [phone] CO2 [Moles/Vol] 24 mmol/L Normal 23-32 [facility] Comment on above: Performed By: #### P T, CMP, CBCDIF ####[place] [phone] Creatinine [Mass/Vol] 0.64 mg/dL Low 0.70-1.40 [facility] Comment on above: Performed By: #### P T, CMP, CBCDIF ####[place] [phone] eGFR- Amer. >60 Normal >60 [facility] Comment on above: Performed By: #### P T, CMP, CBCDIF ####[place] [phone] GFR/1.73 sq M predicted among non-blacks MDRD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 Adherance I am convinced of the importance of my prescription medication: 0 - Agree Completely I worry that my prescription medication will do more harm than good to me : 0 - Disagree Completely I feel financially burdened by my [id number] expenses for my prescription medication:: 0 - Disagree Completely Risk Score: 0 Patient is categorized as: Low risk < 2 Are you interested in bedside delivery of your medications? No Is Patient Psychosocially Complex?: No ASSESSMENT AND PLAN: Medical Needs: Medical Needs: Durable Medical Equipment;Fall risk or frequent falls;Two or more chronic diseases Psychosocial Needs: Psychosocial Needs: None FREEDOM OF CHOICE EXPLAINED: POTENTIAL TRANSITION PLANS To Be Determined Met with patient at bedside. Patient here d/t increased drainage of L leg procedure and supratherapeutic INR. Patient is from home alone. He is retired and does not drive; he depends on his daughter and ex (Joseph [phone]) for transportation. He receives waiver services w/ [employer] care for SN/OT. He receives Meals on Wheels 9 meals/wk plus some groceries. Patient to have exploration of Inguinal site today 10/16. Additional care needs TBD. TCC remains available for plan of care and transitional care needs as they arise. 1445: Liseth w/ [facility] ([place] [facility]) [phone] call for to update on svcs received. [facility] patient receives waiver services through counts include 234 beds at the [facility] for HHC (SN/PT/OT), meals, and emergency health line. Would like to be updated on discharge plans once known. SIGNATURE: Mary Carmen Meredith RN PATIENT NAME: Pedro Pablo Sierra DATE: October 17, 2019 TIME: 12:52 PM PAGER/CONTACT #: [phone] Previous Version Emilie Mcclelland RN, RN 10/17/2019 7:03 PM Addendum Nursing Progress Note Patient Name: Pedro Pablo Sierra Patient Location: [place] [address] 4[facility] __ Daily Note: Alert and oriented x3 with clear speech. Left groin and thigh area edema with large amounts of serous drainage. Sutures intact with redness and warmth to site. Left flank and abdomen area markings around swelling with small amount increase beyond markings. Three units FFP infused with repeat INR in process. IVzosyn and IV Vancomycin infused. IVF with KCL per orders with repeat K ordered. Patient using urinal to void. Plan for surgery today around 1600. CTA completed. Medicated with Percocet and IV dilaudid for pain. Remains NPO with mouth care done. Lungs diminished with wheeze with O2 3L NC intact. Occasional nonproductive cough. Nicoderm patch intact. This note was completed by: Emilie Mcclelland RN 1500 Transport here for operative procedure. INR 1.9 K 3.5. 1830 Patient surgery cancelled with patient back on unit. No change in assessment. Loose kerlix over incision changed for large amount serous drainage. Incision with sutures with redness. IV zosyn given. Voided clear yellow urine via urinal. Patient aware NPO after midnight. Eating dinner at this time. Previous Version Tiny Fraser RN, RN 10/17/2019 3:10 PM Signed PATIENT EDUCATION TOPIC: PROCEDURE / SURGERY: Pre-op Teaching: Logistics PATIENT NAME: Pedro Pablo Sierra PATIENT LOCATION: [place] [address] [address] 53* READINESS TO LEARN COGNITIVE ABILITY: Alert and oriented MOTIVATION TO LEARN: Eager FAMILY SUPPORT: None - Unavailable/disinteres aopllo INSTRUCTION PROVIDED TO: Patient PATIENT LEARNS BEST BY: Individual Instruction FACTORS AFFECTING LEARNING: None PHYSICAL LIMITATIONS AFFECTING LEARNING: None LEARNING RESPONSE DIAGNOSIS: ADULT: Well Adult PATIENT/FAMILY RESPONSE: Verbalizes understanding of: PRE-OPERATIVE INSTRUCTIONS-Correct action to take to follow pre-operative instructions METHOD OF INSTRUCTION: Individual instruction FOLLOW-UP PLAN: Complete - No need for follow-up INSTRUCTIONAL AIDS USED: NA SUPPLEMENTAL MATERIAL PROVIDED TO PATIENT: None REFERRAL (RECOMMENDATION): None Electronically Signed By: ОЛЕГ Almanza RN, RN 10/18/2019 4:31 AM Signed Nursing Progress Note Patient Name: Pedro Pablo Sierra Patient Location: [place] [address]/[address] [id number] __ Daily Note: Patient has been NPO since midnight and IV fluids started as scheduled. Surgery scheduled for this morning. Dressing to left groin still with large amount of serous drainage. Dressing changed as needed. Pain med PRN. Will cont to monitor. This note was completed by: ОЛЕГ Kelly, PHARMACIST 10/18/2019 10:07 AM Signed PHARMACY VANCOMYCIN DOSING NOTE Patient Name: Pedro Pablo Sierra Admission Date: 10/17/2019 Date of Consult: 10/18/2019 Time of Consult: 10:04 AM Indication: Skin/Soft tissue infection Goal Range: 10-20 mcg/mL RECOMMENDATIONS/PLAN: Pharmacy consulted for vancomycin dosing for Pedro Pablo Sierra, a 69 year old, male who is being treated with vancomycin for left groin incision infection, s/p femoral endarterectomy 10/08/19. 1. Patient is currently ordered Vancomycin 1.25 g IV q12h. Today is day 2 of therapy. 2. No vancomycin level has been drawn for this dosing regimen. 3. The present dose of vancomycin is the recommended dosage for this patient at this time. Continue therapy as prescribed. 4. The next vancomycin level will be ordered for 10/20 on the fifth day of therapy unless clinically indicated sooner. (Pharmacy will order) We will follow patient renal function, vancomycin levels and doses with you during the course of therapy. Additional recommendations will appear in follow up notes. If you have any questions, please contact Lit at [phone]. Age: [age] year old Allergies: ALLERGIES No Known Allergies Last 3 Encounter Wt Readings: Date: Wt: 10/16/2019 77.2 kg (170 lb 3.1 oz) 09/12/2019 76.7 kg (169 lb) 09/02/2019 77.2 kg (170 lb 1.6 oz) Last 1 Encounter Ht Readings: Date: Ht: 09/12/2019 172.7 cm (5' 8) CrCl: 99.3 mL/min Temp (24hrs), Av.7 ?C (98 ?F), Min:36.3 ?C (97.3 ?F), Max:36.9 ?C (98.5 ?F) - Current Temp: 36.3 ?C (97.4 ?F) Labs BUN (mg/dL) Date Value 10/18/2019 7 (L) 10/17/2019 14 10/17/2019 15 Creatinine (mg/dL) Date Value 10/18/2019 0.67 (L) 10/17/2019 0.64 (L) 10/17/2019 0.69 (L) WBC (k/uL) Date Value 10/18/2019 4.99 10/17/2019 6.10 10/17/2019 7.04 Vancomycin Levels: Vancomycin, result (ug/mL) Date/Time Value 11/06/2013 0512 18.7 11/02/2013 1112 28.0 (H) LIT ANDERSON, PHARMACIST Emilie Mcclelland, RN, RN 10/18/2019 12:40 PM Signed Nursing Progress Note Patient Name: Pedro Pablo Sierra Patient Location: [facility] OR POOL/[facility] OR POOL __ Daily Note: 0900 Alert and oriented x3 with clear speech. Bed and bath including mouth care done for comfort. Large amount of serous drainage from left groin. Left groin edema with sutures, red with tender to touch. New heplock inserted for normal saline at 75 ml and IV vancomycin. Medications given with sips of water. Remains NPO. Telemonitor intact with no chest discomforts. Oxycodone and IV dilaudid for pain. This note was completed by: Emilie Mcclelland, ОЛЕГ Progress Notes ([facility]): Emilie Haque RN 10/16/2019 2:25 PM Signed Emily from home care calls as she is starting care with Mr. Sierra. She notes that there is significant serosanguinous drainage from the left groin incision. She notes the sutures to be intact but the brittany incision skin to be pink. Picture sent to Dr. Schwarz who advised meticulous skin care with shower with soap/water and patting the skin dry. Patient is anxious to have a provider assess the incision, so an appointment will be made for the patient in clinic tomorrow. Advised to call back with any changes. Emilie Haque RN Normal [facility] Basic Metabolic Panlon 10-13 Anion gap [Moles/Vol] 12 mmol/L Normal 9-18 [facility] Comment on above: Performed By: #### C BC, BMP, PT ####[facility] [place], [place] [phone] Calcium [Mass/Vol] 8.3 mg/dL Low 8.5-10.5 [facility] Comment on above: Performed By: #### C BC BMP, PT ####[place] [phone] Chloride [Moles/Vol] 100 mmol/L Normal 98-110 [facility] Comment on above: Performed By: #### C BC BMP, PT ####[place] [phone] CO2 [Moles/Vol] 25 mmol/L Normal 23-32 [facility] Comment on above: Performed By: #### C LARRY BMP, PT ####[place] [phone] Creatinine [Mass/Vol] 0.69 mg/dL Low 0.70-1.40 [facility] Comment on above: Performed By: #### Edilma JUAREZ BMP, PT ####[place] [phone] eGFR- Amer. >60 Normal >60 [facility] Comment on above: Performed By: #### C LARRY BMP, PT ####[place] [phone] GFR/1.73 sq M predicted among non-blacks MDRD (S/P/Bld) [Vol rate/Area] mL/min/{1.73_m2} Normal >60 [facility] Comment on above: Performed By: #### C LARRY BMP, PT ####[place] [phone] Glucose [Mass/Vol] 100 mg/dL Normal 65-100 [facility] Comment on above: Performed By: #### C LARRY BMP, PT ####[place] [id number] Potassium [Moles/Vol] 3.9 mmol/L Normal 3.5-5.0 [facility] Comment on above: Performed By: #### C BC BMP, PT ####[place] [phone] Sodium [Moles/Vol] 137 mmol/L Normal 135-146 [facility] Comment on above: Performed By: #### C KATHY JUAREZ, PT ####[facility] [place], [place] [phone] Urea nitrogen [Mass/Vol] 8 mg/dL Low 10-25 [facility] Comment on above: Performed By: #### C KATHY JUAREZ, PT ####[facility] [place], [place] [phone] CASE MANAGEMon 10-14-2019 CASE MANAGEM HNO ID: [id number] Author: Guadalupe Yee (Sw) Service: ? Author Type: Flight Line Service Attendant Type: Care Mgt Progress Note Filed: 10/14/2019 10:14 AM Note Text: CARE MANAGEMENT DISCHARGE NOTE SERVICE DATE: 10/14/2019 SERVICE TIME: 9:59 AM LOS: 6 days Admission Date: 10/08/2019 DISCHARGE ARRANGEMENT (list agency and phone number) Discharge Arrangement: Home [facility] Care: Nursing;OT Provider Name: [facility] CAREGIVER ASSESSMENT: Caregiver is ready, willing and able to meet the patient's needs as recommended by the inter-professional team:: Yes Does the patient have an acute stroke diagnosis, or has the patient had a stroke during this admission?: No Patient's transition needs and plan for meeting these needs: [facility] HANDOFF COMMUNICATION: Handoff to: Primary Care Physician Sales Management Intern Name/Phone: Daija Morton/[phone] Primary Care Physician Name/Phone: Daija Morton TRANSPORTATION ARRANGEMENTS: Transportation Arrangements: Car ADDITIONAL CONTACT RESOURCES: Discharge Information Row Name Admission (Current) from 10/08/[address] [facility] Start of Care 10/16/19 Patient will be discharged home today. Patient reports his family will be here to transport him home. D/C order and AVS was sent to [facility] agency. Patient updated on his denial notice and the need to be d/c today before noon today. Addendum- Spoke with [facility] agency about drawn INR on Monday. [facility] agency reported they would provide a SOC on Monday. Updated PA to write orders to have INR drawn on Monday per [facility] request. SIGNATURE: SHAEN CLEMONS PATIENT NAME: Pedro Pablo Sierra DATE: October 14, 2019 TIME: 9:58 AM PAGER/CONTACT #: [phone] Normal [facility] CBCon 10-14-2019 Erythrocyte distribution width (RBC) [Ratio] 15.9 % High 11.5-15.0 [facility] Comment on above: Performed By: #### C BC, BMP, PT ####[place] [phone] Hematocrit (Bld) [Volume fraction] 28.2 % Low 39.0-51.0 [facility] Comment on above: Performed By: #### C LARRY BMP, PT ####[address] [phone] Hemoglobin (Bld) [Mass/Vol] 9.0 g/dL Low 13.0-17.0 [facility] Comment on above: Performed By: #### C BC, BMP, PT ####[address] [phone] MCH (RBC) [Entitic mass] 29.8 pG Normal 26.0-34.0 [facility] Comment on above: Performed By: #### C BC, BMP, PT ####[address] [phone] MCHC (RBC) [Mass/Vol] 31.9 g/dL Normal 30.5-36.0 [facility] Comment on above: Performed By: #### C BC, BMP, PT ####[address] [phone] MCV (RBC) [Entitic vol] 93.4 fL Normal 80.0-100.0 [facility] Comment on above: Performed By: #### C BC, BMP, PT ####[place] [phone] Platelet mean volume (Bld) [Entitic vol] 9.8 fL Normal 9.0-12.7 [facility] Comment on above: Performed By: #### C KATHY JUAREZ, PT ####[facility] [place], [place] [phone] Platelets (Bld) [#/Vol] 225 10*3/uL Normal 150-400 [facility] Comment on above: Performed By: #### C KATHY JUAREZ, PT ####[facility] [place], [place] [phone] RBC (Bld) [#/Vol] 3.02 10*6/uL Low 4.20-6.00 [facility] Comment on above: Performed By: #### C KATHY JUAREZ, PT ####[place] [id number] [place], [place] [phone] WBC (Bld) [#/Vol] 4.88 10*3/uL Normal 3.70-11.00 [facility] Comment on above: Performed By: #### KATHY HARRISON, PT ####[place] [id number] [place], [place] [phone] NURSING PROGon 10-14-2019 NURSING PROG HNO ID: [id number] Author: Fran (Rn) ОЛЕГ Solorio Service: ? Author Type: Registered Nurse Type: Nursing Progress Note Filed: 10/14/2019 6:05 PM Note Text: Nursing Progress Note Patient Name: Pedro Pablo Sierra Patient Location: [place] [address]/[place] [address] __ Daily Note: Patient was resting comfortably in room during day. Denied any new pain or discomfort, vitals stable throughout day. AVS was reviewed with patient and family, patient aware to f/u with pcp within a week and that f/u appts were setup with dr. may's office already. Patient aware of new medications as well as changes to old meds. All questions were answered at time of discharge, vitals stable, patient left at 1740. This note was completed by: Fran Solorio RN [facility] NUTRITIONon 10-14-2019 NUTRITION HNO ID: [id number] Author: Muna Rivas Service: Nutrition Therapy Author Type: Registered Dietitian Type: Nutrition Filed: 10/14/2019 11:33 AM Note Text: NUTRITION THERAPY PROGRESS NOTE SERVICE DATE: 10/14/2019 SERVICE TIME: 11:29 AM Care Plan: Continue current diet Supplements: Impact AR Monitor and Evaluation: Meet greater than 75% of estimated needs;Monitor bowel function;Monitor fluid/electrolyte balance;Monitor labs, I/Os, vital signs, weight Discharge Recommendations: (TBD) Interval History: f/u supplements Anthropometrics: Height: 172.7 cm (5' 8) Weight: 77.2 kg (170 lb 1.6 oz) Dosing Weight: 79 kg (174 lb 2.6 oz) Body mass index is 25.86 kg/m?. Overweight Weight change percentage over time: No weight loss noted Intake History: Current Intake: 0-25% estimated energy needs Current Diet: DIET HEART HEALTHY SIGNATURE: Muna Rivas RD, LD PATIENT NAME: Pedro Pablo Sierra DATE: October 14, 2019 TIME: 11:29 AM PAGER: For further assistance and weekends please page the Group Pager [phone] [facility] PLAN OF CAREon 10-14-2019 PLAN OF CARE HNO ID: [id number] Author: Sherly Quigley (Mechanical Meter Tester) Service: Pharmacy Author Type: Oven Worker Type: Plan of Care Filed: 10/15/2019 11:12 AM Note Text: PILOT PLANT OPERATOR HELPER BEDSIDE DELIVERY SURVEY 1. Patient to use [facility] Bedside Delivery - NO prefer own pharmacy Insurance Information as follows: 2. Insurance card on file - NO 3. Credit card for payment - NO [facility] PLAN OF CARE HNO ID: [id number] Author: Roman Girard Service: Vascular Surgery Author Type: Nurse Practitioner Type: Plan of Care Filed: 10/14/2019 5:14 PM Note Text: Coumadin monitoring for pt is performed by his PCP Dr. Morton. INR increased rapidly to 2.9 yesterday after a 10mg and then a 7.5mg dose on two sequential days, which is his home regimen. Spoke with Dr. Morton on 10/13 to discuss plan for coumadin monitoring to avoid supratherapeutic INR levels. She states he has a history of poor compliance with his medications -Dr. Morton recommended Coumadin 5mg daily, and an INR Check on Mon. 10/15. -Dr. Morton stated that she would have her Talcer call him today to make a post dc followup virtual appt on 10/15 to go over INR results. - [facility] product marketing programs manager coordinated with Home health and scheduled INR check on 10/15 -Pt's ex is picking pt up for discharge to home at 1200 per pt Roman Girard CONTOUR PATH TAPE MILL OPERATOR/ASSISTANT PASTRY CHEF Vascular Surgery Pager: [phone] [facility] PROGRESSon 10-14-2019 PROGRESS HNO ID: [id number] Author: Ayad Tompkins MD Service: Vascular Surgery Author Type: Resident Type: Progress Notes Filed: 10/14/2019 7:32 AM Note Text: [facility] POSTOP PROGRESS NOTE Service Date: 10/13/2019Admit Date: 10/08/2019Service Time: 7:08 AM LOS: 6 day(s) Primary Service: Vascular Surgery Vascular Physician: Ryan May MD Interval Events/Issues: No acute events amenable to discharge, daughter was contacted yesterday Subjective Current Facility-Administered Medications Medication Dose Route Frequency - NaCl 0.9% 3-5 mL 3-5 mL INTRAVENOUS q 12 H - ondansetron 4 mg tab(s) (ZOFRAN) 4 mg ORAL q 6 H PRN Or - ondansetron (PF) 4 mg injection (ZOFRAN) 4 mg INTRAVENOUS q 6 H PRN - bisacodyl 10 mg suppository (DULCOLAX) 10 mg RECTAL DAILY PRN - magnesium hydroxide 400 mg/5 mL 30 mL (MOM) 30 mL ORAL/FEEDING TUBE DAILY PRN - ipratropium-albuterol 3 mL nebulizer solution (DUONEB) 3 mL INHALATION q 4 H PRN - sertraline 100 mg tab(s) (ZOLOFT) 100 mg ORAL DAILY - mirtazapine 15 mg (REMERON) 15 mg ORAL AT BEDTIME - gabapentin 300 mg cap(s) (NEURONTIN) 300 mg ORAL q 12 H - pantoprazole DR 40 mg tab(s) (PROTONIX) 40 mg ORAL DAILY (6 AM) - dextrose 40 % 15 g 15 g ORAL PRN Or - glucagon 1 mg injection (GLUCAGEN) 1 mg INTRAMUSCULAR PRN Or - dextrose 50% in water 25 mL syringe 12.5 g INTRAVENOUS PRN - amLODIPine 5 mg tab(s) (NORVASC) 5 mg ORAL DAILY - carBAMazepine XR 200 mg tab(s) (TEGretol XR) 200 mg ORAL BID - insulin lispro injection (rapid acting) (HumaLOG) SUBCUTANEOUS w MEALS AND HS - nicotine 21 mg/24 hr 1 Patch (NICODERM) 1 Patch TRANSDERMAL DAILY And - nicotine -- REMOVE patch OTHER DAILY And - nicotine - verify patch OTHER q 8 H - clopidogrel 75 mg tab(s) (PLAVIX) 75 mg ORAL DAILY - budesonide 0.25 mg/2 mL 0.25 mg (PULMICORT) 0.25 mg INHALATION BID And - ipratropium-albuterol 3 mL nebulizer solution (DUONEB) 3 mL INHALATION QID - hyoscyamine sublingual 0.25 mg tab(s) (LEVSIN SL) 0.25 mg SUBLINGUAL AC and HS - finasteride 5 mg tab(s) (PROSCAR) 5 mg ORAL DAILY - tamsulosin ER 0.4 mg cap(s) (FLOMAX) 0.4 mg ORAL AT BEDTIME - atorvastatin 40 mg tab(s) (LIPITOR) 40 mg ORAL AT BEDTIME - senna 8.6 mg tab(s) (SENOKOT) 8.6 mg ORAL AT BEDTIME - polyethylene glycol 3350 17 g packet (MIRALAX, GLYCOLAX) 17 g ORAL DAILY - metoprolol tartrate (short acting) 25 mg tab(s) (LOPRESSOR) 25 mg ORAL q 12 H - warfarin dose per INR - Call physician daily for dose ORAL DAILY - WARFARIN - acetaminophen 1,000 mg tab(s) (TYLENOL) 1,000 mg ORAL q 6 H - oxyCODONE IR 5-10 mg tab(s) (ROXICODONE) 5-10 mg ORAL q 4 H PRN - enoxaparin 60 mg injection (LOVENOX) 60 mg SUBCUTANEOUS q 12 HR - guaiFENesin 100 mg oral liquid (ROBITUSSIN) 100 mg ORAL q 4 H PRN Medication and Non-Pharmacologic VTE Prophylaxis/Anticoagul ants Anticoagulant AND Antiplatelet Medications (From admission, onward) Start Dose Route Frequency Ordered Stop 10/13/19 0000 clopidogrel (PLAVIX) 75 mg tablet 75 mg ORAL DAILY 10/13/19 0720 01/11/20 2359 10/12/19 1000 enoxaparin 60 mg injection (LOVENOX) 60 mg SUBCUTANEOUS EVERY 12 HOURS 10/12/19 0752 -- 10/10/19 0900 clopidogrel 75 mg tab(s) (PLAVIX) 75 mg ORAL DAILY 10/09/19 1043 -- 10/11/19 0945 activity - mobilize patient (nc,wi) 10/08/19 1645 pneumatic compression stockings (nc,wi) VTE Prophylaxis: on AC ALLERGIES No Known Allergies Objective PHYSICAL EXAM: Patient Vitals for the past 24 hrs: BP 122/57 Pulse 67 Temp 36.4 ?C (97.6 ?F) (Temporal) Resp 16 Ht 172.7 cm (5' 8) Wt 77.2 kg (170 lb 1.6 oz) SpO2 94% BMI 25.86 kg/m? Intake/Output Summary (Last 24 hours) at 10/14/2019 0730 Last data filed at 10/14/2019 0535 Gross per 24 hour Intake ? Output 2700 ml Net -2700 ml General: NAD Msk: L flank ecchymosis Vasc: +biphasic signals in L femoral, L DP, L PT, L AT + signals R DP, R PT DATA: Laboratory: Recent Labs 10/14/19 04210/13/19 0511 10/12/19 0913 WBC 4.88 4.79 5.98 HB 9.0* 8.4* 9.7* HCT 28.2* 26.2* 29.3* PLT 225 187 173 Recent Labs 10/14/19 04210/13/19 0511 10/12/19 0913 NA 137 138 135 K 3.9 3.5 3.6 BUN 8* 8* 8* CREAT 0.69* 0.68* 0.64* GLUC 100 103* 151* Recent Labs 10/14/19 04210/13/19 0511 10/12/19 0913 INR 2.6* 2.9* 1.5* Assessment/Plan Impression: Pedro Pablo Sierra is a 69 year old White male who was admitted for surgical management of claudication w/ rest pain and is s/p L TELEVISION REPORTER EA w/ bovine patch, L RADHA and EIA thrombectomy, L CI and EI stenting 10/07 c/b thrombosis s/p EIA to TELEVISION REPORTER bypass graft w. Ringed PTFE 10/09. Plan: INR in range, will resume home coumadin regimen; d/c lovenox Reg diet, HLIV PO pain meds Cont. plavix Dressing changes PRN to groin Dispo: D/c home with C today Ayad Tompkins MD General Surgery, PGY-3 For questions Monday through Monday 6am to 6pm please page Red Team [phone] For questions during nights (6pm - 6am) and weekends, please contact the General Surgery Brass And Wind Instrument Repairer pager, [phone] Normal [facility] Protimeon 10-14-2019 PT Coag (PPP) [Time] 27.5 s High 9.7-13.0 [facility] Comment on above: Performed By: #### C BC, BMP, PT ####[facility] [place], [place] [phone] PT Coag (PPP) [Time] 2.6 s High 0.9-1.3 [facility] Comment on above: Result Comment: Teri min K Antagonist (VKA) Therapeutic Range: INR 2 to 3 (Target INR of 2.5) Note: For patients treated with VKA drugs, such as warfarin, the [place] [employer] 2012 Guideline recommends [...] to 3.5 (target INR of 3). Jael GH, et al. Chest 2012, 141:7S-47S Gio KENNY et al. JACC 2017, 70: 252-289 Performed By: #### C BC, BMP, PT ####[facility] [place], [place] [phone] THERAPY NTon 10-14-2019 THERAPY NT HNO ID: [id number] Author: Shakir Freeman (Pt) Mode Service: Physical Therapy Author Type: Physical Therapist Type: Therapy (PT/OT/Speech/Resp) Filed: 10/14/2019 10:40 AM Note Text: Physical Therapy Treatment SERVICE DATE: 10/14/2019 SERVICE TIME: 1003 to 1026 ROOM: [place] [address] Recommended Discharge Disposition: Home PT Anticipated Discharge Needs: Physical Assist at Home Physical Assist at Home for: Cleaning;Laundry;Meals ;Transportation;Shoppi ng Supervision at Home due to: Impaired cognition Recommended Discharge Equipment: Wheeled Walker PT Recommendations to Nursing: Ambulate with device;In halls;OOB for Meals;With assist of 1 person Device: Wheeled Walker PT 6 Clicks Score: 18 Precautions/Activity Restrictions: Bed/Chair Alarm;Fall Risk Precaution/Activity Restriction Comments: heart healthy diet, mobility pt ASSESSMENT : Patient Disposition at Start of Session: Supine in Bed;Call Nelson in Reach Patient Disposition at End of Session: Supine in Bed;Call Nelson in Reach(vascular team in room) Tolerance Limited By Pain;Other: See Comment(intermittent coughing spells during mobility) Physical Therapy Problem List: Safety Deficits;Decreased Activity Tolerance;Decreased Strength;Functional Mobility Impairment;Balance Impaired;Pain Patient /Caregiver Goals: Other: See Comment(ind functional mobility) Goals for Plan of Care: Able to perform HEP with: Independent Rolling with: Modified Independent Transfer supine to/from sit with: Modified Independent Transfer sit to/from stand with: Modified Independent Ambulate with: Modified Independent Distance: 200 Device: Wheeled Walker Ambulate up and down steps with: Modified Independent Number of steps: 5 Device: Rail Progress Toward Goals: Progressing as expected Due To: surgery, now POD number 1. Rehab Potential: Good PLAN: Treatment Frequency (times per week): 5 Current admission Treatment Interventions: Education;Strengthenin g;Functional Mobility Training;Balance Training;Energy Conservation Training Plan of Care developed with: Patient TREATMENT INTERVENTIONS: Therapy Diagnosis: Reduced mobility-other;Muscle Weakness (generalized);Unsteadi ness on feet Interventions Provided: Gait Training (68814);Therapeutic Activity (18808) Therapeutic Activity (71551) Treatment Minutes: 10 1 unit Skilled Intervention(s): Instructed patient in supine to sit pushing with upper extremities to sit up Instructed patient in sit to supine using safe, effective technique. Cued pt to support L LE with R LE to assistance LE in and out of bed. Discussed log roll technique Practiced bed mobility for functional mobility training and strengthening. Pt dangled at EOB, to allow his body time to adjust to changes in position prior to mobility Gait Training (01849) Treatment Minutes: 13 1 unit Skilled Intervention(s): Instruction in sit to stand technique with proper hand placement and body positioning at edge of bed/chair, Instruction in stand to sit technique with LE's touching chair/bed and reaching back for surface, Instruction in sequencing, gait pattern, Instruction in correction of gait deviations, Instruction in use of equipment, cues for sequence and pattern and pt walked with therapist assistance for functional mobility training, strengthening, and balance. Cued pt on ww use and safety. Educated pt on adjusting ww for pt's height. Total Timed Code Treatment Minutes: 23 Total Treatment Time (minutes): 23 SUBJECTIVE: Current Hospital Course: Chart reviewed and no significant medical updates relevant to therapy were noted Reason for Physical Therapy Consult : PVD s/p L LE redo TELEVISION REPORTER endarterectomy, L profundoplasty, iliac stenting on 10/08/19 Relevant Past Medical History: S/p L femoral endarterectomy/aoroili ac stenting Patient Report: Pt agreeable to participate in therapy session. Pt having coughing spells intermittently during functional mobility, stating that he gets light headed when this occurs (vascular team was notified). Home Environment Patient Lives With: Self/Alone Assistance Available: time study clerk Entry To Home: Stairs;Other: See Comment(stair lift) Number Of Stairs Into Home: 4 Number Of Stairs To Bed/Bath: 0 Tub/Shower Type: Walk in Laundry: First floor- in unit Equipment Owned: Home Oxygen;Shower Chair;Grab Bars-Shower;Hand Held Shower;Commode-Raised; Cane;Wheeled Walker Prior Functional Level: Within Functional Limits;Required Assistance Assistance Required With: Meals(has MOW) Prior Functional Level Comments: Per pt, Ind ADLs, IADLs, drives, amb using cane. Receives MOW. OBJECTIVE: Mini Cog Score: 1 (10/09/19 1010) CURRENT FUNCTIONAL STATUS: Current Functional Mobility Assist Level Additional Information Rolling Moderate Assistance Supine to Sit Minimal Assistance Sit to Supine Minimal Assistance(assistance given to lift LE in bed) Scooting Contact Guard Assistance Sit to Stand Stand By Assistance Stand to Sit Stand By Assistance Bed to Chair Toilet/Commode Gait Contact Guard Assistance Gait Device: Wheeled Walker Gait Distance (feet): 30 Stairs Curb Step Car Transfer Gait Deviations Left Lower Extremity: Stance time decreased;Step length decreased;Weight bearing decreased General Deviations/Observation s: Odilia decreased;Antalgic gait;Flexed trunk posture;Step length decreased Balance: Static Sitting;Static Standing;Dynamic Standing Static Sitting Balance: Good Patient able to maintain balance without handhold support, limited postural sway Static Standing Balance: Fair Patient able to maintain balance with handhold support, may require occasional minimal assistance Dynamic Standing Balance: Fair Patient accepts minimal challenge, able to maintain balance while turning head/trunk JH-HLM: 7: Walk 25 feet or more Please see discipline specific clinical documentation flowsheet for complete details for this therapy evaluation/treatment. SIGNATURE: Shakir Coello PT PATIENT NAME: Pedro Pablo Sierra DATE: October 14, 2019 TIME: 10:37 AM [facility] THERAPY NT HNO ID: [id number] Author: Caitlin Thomas Service: Occupational Therapy Author Type: Occupational Therapist Type: Therapy (PT/OT/Speech/Resp) Filed: 10/14/2019 10:18 AM Note Text: OCCUPATIONAL THERAPY MISSED VISIT SERVICE DATE: 10/14/2019 SERVICE TIME: 920 to 920 ROOM: [place] [address] Attempted Treatment. Patient not seen due to Declined. Pt declines OT tx stating, Not until after dinner. OT explains that it is 9 in the morning with pt verbalizing understanding and continuing to decline therapy at this time. Continue OT per POC as able. SIGNATURE: OMAYRA Granados/Daisha PATIENT NAME: Pedro Pablo Sierra DATE: October 14, 2019 TIME: 10:17 AM [facility] Basic Metabolic Panlon 10-12 Anion gap [Moles/Vol] 10 mmol/L Normal 9-18 [facility] Comment on above: Performed By: #### C BC, BMP, PT ####[place] [phone] Calcium [Mass/Vol] 8.1 mg/dL Low 8.5-10.5 [facility] Comment on above: Performed By: #### C BC, BMP, PT ####[place] [phone] Chloride [Moles/Vol] 102 mmol/L Normal 98-110 [facility] Comment on above: Performed By: #### C LARRY, BMP, PT ####[place] [phone] CO2 [Moles/Vol] 26 mmol/L Normal 23-32 [facility] Comment on above: Performed By: #### C LARRY BMP, PT ####[place] [phone] Creatinine [Mass/Vol] 0.68 mg/dL Low 0.70-1.40 [facility] Comment on above: Performed By: #### C LARRY, BMP, PT ####[place] [phone] eGFR- Amer. >60 Normal >60 [facility] Comment on above: Performed By: #### C LARRY BMP, PT ####[place] [phone] GFR/1.73 sq M predicted among non-blacks MDRD (S/P/Bld) [Vol rate/Area] mL/min/{1.73_m2} Normal >60 [facility] Comment on above: Performed By: #### C LARRY, BMP, PT ####[place] [phone] Glucose [Mass/Vol] 103 mg/dL High 65-100 [facility] Comment on above: Performed By: #### C BC, BMP, PT ####[place] [phone] Potassium [Moles/Vol] 3.5 mmol/L Normal 3.5-5.0 [facility] Comment on above: Performed By: #### C LARRY BMP, PT ####[place] [phone] [place] [phone] Sodium [Moles/Vol] 138 mmol/L Normal 135-146 [facility] Comment on above: Performed By: #### C LARRY, BMP, PT ####[place] [phone] [place] [phone] Urea nitrogen [Mass/Vol] 8 mg/dL Low 10-25 [facility] Comment on above: Performed By: #### C LARRY, BMP, PT ####[place] [phone] [place] [phone] CASE MANAGEMon 10-13-2019 CASE MANAGEM HNO ID: [id number] Author: Carly Hutchison) ОЛЕГ Man Service: Case Management Author Type: Registered Nurse Type: Care Mgt Progress Note Filed: 10/13/2019 2:06 PM Note Text: CARE MANAGEMENT PROGRESS NOTE SERVICE DATE: 10/13/2019 SERVICE TIME: 1350 LOS: 5 days Needs Prior to Discharge: To Be Determined Pt made aware that Medicare appeal was denied, aware he will need to d/c tomorrow by noon to avoid charges. Pt states understanding. Pt aware he will [facility] services. AVS faxed to [facility]en ( Waiver CM) SIGNATURE: Carly Man RN,BSN PATIENT NAME: Pedro Pablo Sierra DATE: October 13, 2019 TIME: 1:54 PM PAGER/CONTACT #: [phone] Normal [facility] CBCon 10-13-2019 Erythrocyte distribution width (RBC) [Ratio] 15.9 % High 11.5-15.0 [facility] Comment on above: Performed By: #### C LARRY BMP, PT ####[place] [phone] [place] [phone] Hematocrit (Bld) [Volume fraction] 26.2 % Low 39.0-51.0 [facility] Comment on above: Performed By: #### C LARRY, BMP, PT ####[place] [phone] [place] [phone] Hemoglobin (Bld) [Mass/Vol] 8.4 g/dL Low 13.0-17.0 [facility] Comment on above: Performed By: #### C KATHY JUAREZ, PT ####[place] [phone] MCH (RBC) [Entitic mass] 29.6 pG Normal 26.0-34.0 [facility] Comment on above: Performed By: #### C LARRY BMP, PT ####[place] [phone] MCHC (RBC) [Mass/Vol] 32.1 g/dL Normal 30.5-36.0 [facility] Comment on above: Performed By: #### C LARRY BMP, PT ####[place] [phone] MCV (RBC) [Entitic vol] 92.3 fL Normal 80.0-100.0 [facility] Comment on above: Performed By: #### C LARRY, BMP, PT ####[place] [phone] Platelet mean volume (Bld) [Entitic vol] 10.0 fL Normal 9.0-12.7 [facility] Comment on above: Performed By: #### C LARRY BMP, PT ####[place] [phone] Platelets (Bld) [#/Vol] 187 10*3/uL Normal 150-400 [facility] Comment on above: Performed By: #### C BC, BMP, PT ####[place] [phone] RBC (Bld) [#/Vol] 2.84 10*6/uL Low 4.20-6.00 [facility] Comment on above: Performed By: #### C BC, BMP, PT ####[place] [phone] WBC (Bld) [#/Vol] 4.79 10*3/uL Normal 3.70-11.00 [facility] Comment on above: Performed By: #### C LARRY, BMP, PT ####[facility] [place], [place] [phone] NURSING PROGon 10-13-2019 NURSING PROG HNO ID: [id number] Author: Stefania NessRn) ОЛЕГ García Service: ? Author Type: Registered Nurse Type: Nursing Progress Note Filed: 10/13/2019 10:12 AM Note Text: Nursing Progress Note Patient Name: Pedro Pablo Sierra Patient Location: -/-[id number] __ Daily Note:Patient expressed a desire to ambulate and get up to chair. He states he wants to get back to his normal life. Patient states he started the process to dispute his discharge. He also states his ex and daughter will not pick him up from the hospital without a plan for / care. RN inquired about his daughter and her mother helping. Patient proceeded to talk in circles and vaguely reference one of them having a CVA. No definitive answer, but patient is clear that he plans on returning home at discharge. 1000-After further discussion, patient states daughter will be able to stay with him for a while. Ex may be able to help as well. This note was completed by: Stefania García RN [facility] NURSING PROG HNO ID: [id number] Author: Emily NessRn) ОЛЕГ Linda Service: ? Author Type: Registered Nurse Type: Nursing Progress Note Filed: 10/13/2019 12:12 AM Note Text: Nursing Progress Note Patient Name: Pedro Pablo Sierra Patient Location: FV-[id number] __ Daily Note: 2151-- pt resting in bed AO3, 87% RA (patient usually 94% on 3LNC at home. Refuses to put NC back on, educated on benefits/risks. Still refuses.) expiratory wheeze heard all lobes with diminished bases, nonproductive dry cough. SR on telemetry, VSS. S1/s2 regular. Abdomen distended/firm/ and tender. Pt says it has been a few days, since before I came in since he had a BM. Hypoactive bowel sounds. Urine joslyn yet clear, encouraged to drink water more frequently. L groin cath site dressing changed with ABD as it was soiled with medium amount serosanguinous drainage. Small hematoma present along left of incision. Incision adhesive and sutures intact, no erythema. L leg numbness/tingling. Pedal/ tibial pulses present by doppler. No pressure injuries present. Safety maintained bed alarm on. Call light and possessions in reach. 0000-- page to on-call surgery team [phone]-- Pedro Pablo Sierra [phone]-- patients L groin cath site has frequent medium amount of serosanguinous drainage, dressing changed. small hematoma still present. just wanted to make aware. thanks, Emily [phone] 0000-- call back from Noman Fish, general surgery resident, says continue monitoring incision for larger amount of bloody drainage and dehiscence. This note was completed by: Emily Linda RN [facility] PROGRESSon 10-13-2019 PROGRESS HNO ID: [id number] Author: Noman Fish MD Service: General Surgery Author Type: Resident Type: Progress Notes Filed: 10/13/2019 7:13 AM Note Text: [facility]ULAR [facility] POSTOP PROGRESS NOTE Service Date: 10/13/2019Admit Date: 10/08/2019Service Time: 7:08 AM LOS: 5 day(s) Primary Service: Vascular Surgery Vascular Physician: Ryan May MD Interval Events/Issues: Drainage from incision site. Patient angry about discharge, wants gdpir-rhs-sizmc care at home. Otherwise no acute events. Subjective Current Facility-Administered Medications Medication Dose Route Frequency - NaCl 0.9% 3-5 mL 3-5 mL INTRAVENOUS q 12 H - ondansetron 4 mg tab(s) (ZOFRAN) 4 mg ORAL q 6 H PRN Or - ondansetron (PF) 4 mg injection (ZOFRAN) 4 mg INTRAVENOUS q 6 H PRN - bisacodyl 10 mg suppository (DULCOLAX) 10 mg RECTAL DAILY PRN - magnesium hydroxide 400 mg/5 mL 30 mL (MOM) 30 mL ORAL/FEEDING TUBE DAILY PRN - ipratropium-albuterol 3 mL nebulizer solution (DUONEB) 3 mL INHALATION q 4 H PRN - sertraline 100 mg tab(s) (ZOLOFT) 100 mg ORAL DAILY - mirtazapine 15 mg (REMERON) 15 mg ORAL AT BEDTIME - gabapentin 300 mg cap(s) (NEURONTIN) 300 mg ORAL q 12 H - pantoprazole DR 40 mg tab(s) (PROTONIX) 40 mg ORAL DAILY (6 AM) - dextrose 40 % 15 g 15 g ORAL PRN Or - glucagon 1 mg injection (GLUCAGEN) 1 mg INTRAMUSCULAR PRN Or - dextrose 50% in water 25 mL syringe 12.5 g INTRAVENOUS PRN - amLODIPine 5 mg tab(s) (NORVASC) 5 mg ORAL DAILY - carBAMazepine XR 200 mg tab(s) (TEGretol XR) 200 mg ORAL BID - insulin lispro injection (rapid acting) (HumaLOG) SUBCUTANEOUS w MEALS AND HS - nicotine 21 mg/24 hr 1 Patch (NICODERM) 1 Patch TRANSDERMAL DAILY And - nicotine -- REMOVE patch OTHER DAILY And - nicotine - verify patch OTHER q 8 H - clopidogrel 75 mg tab(s) (PLAVIX) 75 mg ORAL DAILY - budesonide 0.25 mg/2 mL 0.25 mg (PULMICORT) 0.25 mg INHALATION BID And - ipratropium-albuterol 3 mL nebulizer solution (DUONEB) 3 mL INHALATION QID - hyoscyamine sublingual 0.25 mg tab(s) (LEVSIN SL) 0.25 mg SUBLINGUAL AC and HS - finasteride 5 mg tab(s) (PROSCAR) 5 mg ORAL DAILY - tamsulosin ER 0.4 mg cap(s) (FLOMAX) 0.4 mg ORAL AT BEDTIME - atorvastatin 40 mg tab(s) (LIPITOR) 40 mg ORAL AT BEDTIME - senna 8.6 mg tab(s) (SENOKOT) 8.6 mg ORAL AT BEDTIME - polyethylene glycol 3350 17 g packet (MIRALAX, GLYCOLAX) 17 g ORAL DAILY - metoprolol tartrate (short acting) 25 mg tab(s) (LOPRESSOR) 25 mg ORAL q 12 H - warfarin dose per INR - Call physician daily for dose ORAL DAILY - WARFARIN - acetaminophen 1,000 mg tab(s) (TYLENOL) 1,000 mg ORAL q 6 H - oxyCODONE IR 5-10 mg tab(s) (ROXICODONE) 5-10 mg ORAL q 4 H PRN - enoxaparin 60 mg injection (LOVENOX) 60 mg SUBCUTANEOUS q 12 HR - guaiFENesin 100 mg oral liquid (ROBITUSSIN) 100 mg ORAL q 4 H PRN Medication and Non-Pharmacologic VTE Prophylaxis/Anticoagul ants Anticoagulant AND Antiplatelet Medications (From admission, onward) Start Dose Route Frequency Ordered Stop 10/12/19 1000 enoxaparin 60 mg injection (LOVENOX) 60 mg SUBCUTANEOUS EVERY 12 HOURS 10/12/19 0752 -- 10/10/19 0900 clopidogrel 75 mg tab(s) (PLAVIX) 75 mg ORAL DAILY 10/09/19 1043 -- 10/11/19 0945 activity - mobilize patient ([place], [place]) 10/08/19 1645 pneumatic compression stockings ([place]) VTE Prophylaxis: on AC ALLERGIES No Known Allergies Objective PHYSICAL EXAM: Patient Vitals for the past 24 hrs: BP Temp Temp src Pulse Resp SpO2 10/12/19 0714 ? ? ? 89 16 ? 10/12/19 0703 (!) 121/46 36.7 ?C (98.1 ?F) Temporal 92 16 88 % 10/11/19 2307 148/52 37.2 ?C (99 ?F) Temporal 81 16 94 % 10/11/19 2106 ? ? ? 81 ? ? 10/11/190 ? ? ? 78 18 (!) 86 % 10/11/19 1905 139/53 37.2 ?C (99 ?F) Temporal 80 18 (!) 85 % 10/11/19 1631 ? ? ? 74 20 ? 10/11/19 1622 ? ? ? 74 20 96 % 10/11/19 1444 151/60 36.7 ?C (98 ?F) Oral 74 16 93 % 10/11/19 1400 136/56 ? ? 72 22 95 % 10/11/19 1300 146/64 ? ? 76 22 93 % 10/11/19 1203 ? 37 ?C (98.6 ?F) Oral ? ? ? 10/11/19 1200 133/64 ? ? 74 17 95 % 10/11/19 1125 ? ? ? 80 25 ? 10/11/19 1117 ? ? ? 72 20 96 % 10/11/19 1100 128/78 ? ? 73 21 95 % 10/11/19 1000 157/62 ? ? 85 21 96 % 10/11/19 0900 125/70 ? ? 75 19 95 % 10/11/19 0800 141/54 37.2 ?C (99 ?F) Oral 73 21 98 % Intake/Output Summary (Last 24 hours) at 10/13/2019 0707 Last data filed at 10/13/2019 0648 Gross per 24 hour Intake 1400 ml Output 2305 ml Net -905 ml General: NAD Msk: L flank ecchymosis Vasc: + signals in L femoral, L DP, L PT, L AT + signals R DP, R PT DATA: Laboratory: Recent Labs 10/13/19 0510/12/19 0913 10/11/19 0330 WBC 4.79 5.98 5.78 HB 8.4* 9.7* 8.9* HCT 26.2* 29.3* 27.2* PLT 187 173 140* Recent Labs 10/13/19 0510/12/19 0913 10/11/19 0330 10/10/19 1459 NA 138 135 136 138 K 3.5 3.6 3.9 4.3 BUN 8* 8* 8* 9* CREAT 0.68* 0.64* 0.63* 0.68* GLUC 103* 151* 107* 127* MG -- -- 2.0 1.8 Recent Labs 10/13/19 0511 10/12/19 0913 10/11/19 1120 10/10/19 2000 10/10/19 1459 APTT -- -- -- 25.4 126.3* INR 2.9* 1.5* 1.0 1.0 1.0 Assessment/Plan Impression: Pedro Pablo Sierra is a 69 year old White male who is POD# 4/2, admitted for surgical management of claudication w/ rest pain and is s/p L TELEVISION REPORTER EA w/ bovine patch, L RADHA and EIA thrombectomy, L CI and EI stenting 10/07 c/b thrombosis s/p : EIA to TELEVISION REPORTER bypass graft w. Ringed PTFE 10/09. Plan: Continue lovenox to coumadin bridge Reg diet, HLIV PO pain meds S/p brittany-op abx No clark Cont. plavix Dressing changes PRN to groin Dispo: D/c home with [facility] today Noman Fish MD 7:09 AM 10/13/2019 See below: For questions Monday through Monday 6am to 6pm please page Red Team [phone] For questions during nights (6pm - 6am) and weekends, please contact the General Surgery [employer] Instrument Repairer pager, [phone] Normal [facility] Protimeon 10-13-2019 PT Coag (PPP) [Time] 30.6 s High 9.7-13.0 [facility] Comment on above: Performed By: #### C BC, BMP, PT ####[facility] [place], [place] [phone] PT Coag (PPP) [Time] 2.9 s High 0.9-1.3 [facility] Comment on above: Result Comment: Teri min K Antagonist (VKA) Therapeutic Range: INR 2 to 3 (Target INR of 2.5) Note: For patients treated with VKA drugs, such as warfarin, the [place] [employer] 2012 Guideline recommends [...] WARNER, et al. Chest 2012, 141:7S-47S Gio RA, et al. [facility] 2017, 70: 252-289 Performed By: #### C BC, BMP, PT ####[place] [id number] [place], [place] [phone] THERAPY NTon 10-13-2019 THERAPY NT HNO ID: [id number] Author: Shakir Freeman (Pt) Mode Service: Physical Therapy Author Type: Physical Therapist Type: Therapy (PT/OT/Speech/Resp) Filed: 10/13/2019 1:35 PM Note Text: Physical Therapy Treatment SERVICE DATE: 10/13/2019 SERVICE TIME: 1235 to 1300 ROOM: [place] [address] Recommended Discharge Disposition: Home PT Anticipated Discharge Needs: Physical Assist at Home Physical Assist at Home for: Cleaning;Laundry;Meals ;Transportation;Shoppi ng Supervision at Home due to: Impaired cognition Recommended Discharge Equipment: To Be Determined PT Recommendations to Nursing: Ambulate with device;In halls;OOB for Meals;With assist of 1 person Device: Wheeled Walker PT 6 Clicks Score: 18 Precautions/Activity Restrictions: Bed/Chair Alarm;Fall Risk Precaution/Activity Restriction Comments: heart healthy diet, mobility pt ASSESSMENT : Patient Disposition at Start of Session: OOB in Chair;Call Nelson in Reach;Chair Alarm Patient Disposition at End of Session: OOB in Chair;Call Nelson in Reach;Chair Alarm Tolerated Full Session Pain;Other: See Comment(reports of L LE instability) Physical Therapy Problem List: Safety Deficits;Decreased Activity Tolerance;Decreased Strength;Functional Mobility Impairment;Balance Impaired;Pain Patient /Caregiver Goals: Other: See Comment(ind functional mobility) Goals for Plan of Care: Able to perform HEP with: Independent Rolling with: Modified Independent Transfer supine to/from sit with: Modified Independent Transfer sit to/from stand with: Modified Independent Ambulate with: Modified Independent Distance: 200 Device: Wheeled Walker Ambulate up and down steps with: Modified Independent Number of steps: 5 Device: Rail Progress Toward Goals: Progressing as expected Due To: surgery, now POD number 1. Rehab Potential: Good PLAN: Treatment Frequency (times per week): 5 Current admission Treatment Interventions: Education;Strengthenin g;Functional Mobility Training;Balance Training;Energy Conservation Training Plan of Care developed with: Patient TREATMENT INTERVENTIONS: Therapy Diagnosis: Reduced mobility-other;Muscle Weakness (generalized);Unsteadi ness on feet Interventions Provided: Gait Training (98956) Gait Training (65749) Treatment Minutes: 25 2 units Skilled Intervention(s): Instruction in sit to stand technique with proper hand placement and body positioning at edge of bed/chair, Instruction in stand to sit technique with LE's touching chair/bed and reaching back for surface, Instruction in sequencing, gait pattern, Instruction in correction of gait deviations, Instruction in use of equipment, cues for sequence and pattern and pt walked with therapist assistance for functional mobility training, strengthening, and balance. Pt cued for ww use and safety. Pt required intermittent standing rest breaks due to fatigue and increased time to ambulate Total Timed Code Treatment Minutes: 25 Total Treatment Time (minutes): 25 SUBJECTIVE: Current Hospital Course: Chart reviewed; s/p hematoma evacuation on 10/09 Reason for Physical Therapy Consult : PVD s/p L LE redo TELEVISION REPORTER endarterectomy, L profundoplasty, iliac stenting on 10/08/19 Relevant Past Medical History: S/p L femoral endarterectomy/aoroili ac stenting Patient Report: Pt agreeable to participate in therapy session Home Environment Patient Lives With: Self/Alone Assistance Available: time study clerk Entry To Home: Stairs;Other: See Comment(stair lift) Number Of Stairs Into Home: 4 Number Of Stairs To Bed/Bath: 0 Tub/Shower Type: Walk in Laundry: First floor- in unit Equipment Owned: Home Oxygen;Shower Chair;Grab Bars-Shower;Hand Held Shower;Commode-Raised; Cane;Wheeled Walker Prior Functional Level: Within Functional Limits;Required Assistance Assistance Required With: Meals(has MOW) Prior Functional Level Comments: Per pt, Ind ADLs, IADLs, drives, amb using cane. Receives MOW. OBJECTIVE: Mini Cog Score: 1 (10/09/19 1010) CURRENT FUNCTIONAL STATUS: Current Functional Mobility Assist Level Additional Information Rolling Moderate Assistance Supine to Sit Moderate Assistance Sit to Supine Moderate Assistance(assistance given to elevate LE's into bed) Scooting Contact Guard Assistance Sit to Stand Contact Guard Assistance Stand to Sit Contact Guard Assistance Bed to Chair Toilet/Commode Gait Contact Guard Assistance Gait Device: Wheeled Walker Gait Distance (feet): 100 Stairs Curb Step Car Transfer Gait Deviations Left Lower Extremity: Weight bearing decreased General Deviations/Observation s: Antalgic gait;Odilia decreased;Step length decreased(required frequent standing rest breaks due to SOB and fatigu) Balance: Static Sitting;Static Standing;Dynamic Standing Static Sitting Balance: Fair Patient able to maintain balance with handhold support, may require occasional minimal assistance Static Standing Balance: Fair Patient able to maintain balance with handhold support, may require occasional minimal assistance Dynamic Standing Balance: Fair Patient accepts minimal challenge, able to maintain balance while turning head/trunk -M: 7: Walk 25 feet or more Please see discipline specific clinical documentation flowsheet for complete details for this therapy evaluation/treatment. SIGNATURE: Shakir Coello PT PATIENT NAME: Pedro Pablo Sierra DATE: October 13, 2019 TIME: 1:34 PM Normal [facility] Basic Metabolic Panlon 10-11 Anion gap [Moles/Vol] 11 mmol/L Normal 9-18 [facility] Comment on above: Performed By: #### C BC, PT, BMP ####[place] [phone] Calcium [Mass/Vol] 8.1 mg/dL Low 8.5-10.5 [facility] Comment on above: Performed By: #### C BC, PT, BMP ####[place] [phone] Chloride [Moles/Vol] 98 mmol/L Normal 98-110 [facility] Comment on above: Performed By: #### C BC, PT, BMP ####[place] [phone] CO2 [Moles/Vol] 26 mmol/L Normal 23-32 [facility] Comment on above: Performed By: #### C BC, PT, BMP ####[place] [phone] Creatinine [Mass/Vol] 0.64 mg/dL Low 0.70-1.40 [facility] Comment on above: Performed By: #### C BC, PT, BMP ####[place] [phone] eGFR- Amer. >60 Normal >60 [facility] Comment on above: Performed By: #### C BC, PT, BMP ####[place] [phone] GFR/1.73 sq M predicted among non-blacks MDRD (S/P/Bld) [Vol rate/Area] mL/min/{1.73_m2} Normal >60 [facility] Comment on above: Performed By: #### C BC, PT, BMP ####[place] [phone] Glucose [Mass/Vol] 151 mg/dL High 65-100 [facility] Comment on above: Performed By: #### C BC, PT, BMP ####[place] [phone] Potassium [Moles/Vol] 3.6 mmol/L Normal 3.5-5.0 [facility] Comment on above: Performed By: #### C BC, PT, BMP ####[place] [phone] Sodium [Moles/Vol] 135 mmol/L Normal 135-146 [facility] Comment on above: Performed By: #### C BC, PT, BMP ####[place] [phone] Urea nitrogen [Mass/Vol] 8 mg/dL Low 10-25 [facility] Comment on above: Performed By: #### C LARRY, PT, BMP ####[place] [phone] CASE MANAGEMon 10-12-2019 CASE MANAGEM HNO ID: [id number] Author: Carly (Олег) ОЛЕГ Man Service: Case Management Author Type: Registered Nurse Type: Care Mgt Progress Note Filed: 10/12/2019 12:39 PM Note Text: CARE MANAGEMENT PROGRESS NOTE SERVICE DATE: 10/12/2019 SERVICE TIME: 1230 LOS: 4 days Needs Prior to Discharge: To Be Determined Clinicals faxed to [facility] SIGNATURE: Carly Man RN,BSN PATIENT NAME: Pedro Pablo Sierra DATE: October 12, 2019 TIME: 12:38 PM PAGER/CONTACT #: [phone] [facility] CASE MANAGEM HNO ID: [id number] Author: Carly (Rn) Donovan RN Service: Case Management Author Type: Registered Nurse Type: Care Mgt Progress Note Filed: 10/12/2019 10:19 AM Note Text: CARE MANAGEMENT PROGRESS NOTE SERVICE DATE: 10/12/2019 SERVICE TIME: 1015 LOS: 4 days Needs Prior to Discharge: To Be Determined Called to speak to pt at bedside concerning d/c planning. Pt adamant that he cannot go home , states he needs someone to take care of him 24 hr a day, states HHC is not enough. Informed pt that he has an option to self pay for 24 hr caregiver, pt states he cannot afford it. Offered pt SNF as option ,sattes he will not go d/t covid, explained that there are cases of covid in this hospital and that he is safer at home. Pt Very upset, states my daughter is POA, and if she finds out you sent me home , You better watch it !) Explained to pt this CM is giving pt his options for d/c. Pt given IM letter, explained appeal process. SIGNATURE: Carly Man RN,BSN PATIENT NAME: Pedro Pablo Sierra DATE: October 12, 2019 TIME: 10:14 AM PAGER/CONTACT #: [phone] [facility] CBCon 10-12-2019 Erythrocyte distribution width (RBC) [Ratio] 16.0 % High 11.5-15.0 [facility] Comment on above: Performed By: #### C BC, PT, BMP ####[facility] [place], [place] [phone] Hematocrit (Bld) [Volume fraction] 29.3 % Low 39.0-51.0 [facility] Comment on above: Performed By: #### C BC, PT, BMP ####[facility] [place], [place] [phone] Hemoglobin (Bld) [Mass/Vol] 9.7 g/dL Low 13.0-17.0 [facility] Comment on above: Performed By: #### C BC, PT, BMP ####[place] [phone] MCH (RBC) [Entitic mass] 30.3 pG Normal 26.0-34.0 [facility] Comment on above: Performed By: #### C BC, PT, BMP ####[place] [phone] MCHC (RBC) [Mass/Vol] 33.1 g/dL Normal 30.5-36.0 [facility] Comment on above: Performed By: #### C BC, PT, BMP ####[place] [phone] MCV (RBC) [Entitic vol] 91.6 fL Normal 80.0-100.0 [facility] Comment on above: Performed By: #### C BC, PT, BMP ####[place] [phone] Platelet mean volume (Bld) [Entitic vol] 10.2 fL Normal 9.0-12.7 [facility] Comment on above: Performed By: #### C BC, PT, BMP ####[place] [phone] Platelets (Bld) [#/Vol] 173 10*3/uL Normal 150-400 [facility] Comment on above: Performed By: #### C BC, PT, BMP ####[place] [phone] RBC (Bld) [#/Vol] 3.20 10*6/uL Low 4.20-6.00 [facility] Comment on above: Performed By: #### C BC, PT, BMP ####[place] [phone] WBC (Bld) [#/Vol] 5.98 10*3/uL Normal 3.70-11.00 [facility] Comment on above: Performed By: #### C BC, PT, BMP ####[place] [address] [place], [place] [phone] NURSING PROGon 10-12-2019 NURSING PROG HNO ID: [id number] Author: Daphney (Rn) ОЛЕГ Baron Service: Nursing Author Type: Registered Nurse Type: Nursing Progress Note Filed: 10/12/2019 4:25 PM Note Text: Nursing Progress Note Patient Name: Pedro Pablo Sierra Patient Location: [place] [address]/[id number] __ Daily Note: 0900: Pt up to chair with 2 assist and walker. Pt states left leg is painful, but able to bear weight. Pt does not want to be discharged at this time, PT/OT recommending skilled, pt refusing and wanting home care around the clock. Pt requesting robitussin for cough, given at 0841 per order. 1130: Pt assisted to bathroom with nursing informatics specialist and walker. Pt was able to ambulate from bathroom to bed using walker with standby assist. 1610: Incision to left groin oozing serosang drainage. Gown saturated and needed to be changed. Abd and paper tape applied to cover and collect drainage. Pt c/o pain to left groin, 8/10. Medicated with 10mg po oxycodone. This note was completed by: Daphney Baron RN [facility] PROGRESSon 10-12-2019 PROGRESS HNO ID: [id number] Author: Elly (Azalea) Stephanie Service: Vascular Surgery Author Type: Resident Type: Progress Notes Filed: 10/12/2019 7:48 AM Note Text: [facility]ULAR [facility] POSTOP PROGRESS NOTE Service Date: 10/12/2019Admit Date: 10/08/2019Service Time: 7:43 AM LOS: 4 day(s) Primary Service: Vascular Surgery Vascular Physician: Ryan May MD Interval Events/Issues: Reporting significant pain in his L flank, L groin. Otherwise no acute events. Subjective Current Facility-Administered Medications Medication Dose Route Frequency - NaCl 0.9% 3-5 mL 3-5 mL INTRAVENOUS q 12 H - ondansetron 4 mg tab(s) (ZOFRAN) 4 mg ORAL q 6 H PRN Or - ondansetron (PF) 4 mg injection (ZOFRAN) 4 mg INTRAVENOUS q 6 H PRN - bisacodyl 10 mg suppository (DULCOLAX) 10 mg RECTAL DAILY PRN - magnesium hydroxide 400 mg/5 mL 30 mL (MOM) 30 mL ORAL/FEEDING TUBE DAILY PRN - ipratropium-albuterol 3 mL nebulizer solution (DUONEB) 3 mL INHALATION q 4 H PRN - sertraline 100 mg tab(s) (ZOLOFT) 100 mg ORAL DAILY - mirtazapine 15 mg (REMERON) 15 mg ORAL AT BEDTIME - gabapentin 300 mg cap(s) (NEURONTIN) 300 mg ORAL q 12 H - pantoprazole DR 40 mg tab(s) (PROTONIX) 40 mg ORAL DAILY (6 AM) - dextrose 40 % 15 g 15 g ORAL PRN Or - glucagon 1 mg injection (GLUCAGEN) 1 mg INTRAMUSCULAR PRN Or - dextrose 50% in water 25 mL syringe 12.5 g INTRAVENOUS PRN - amLODIPine 5 mg tab(s) (NORVASC) 5 mg ORAL DAILY - carBAMazepine XR 200 mg tab(s) (TEGretol XR) 200 mg ORAL BID - insulin lispro injection (rapid acting) (HumaLOG) SUBCUTANEOUS w MEALS AND HS - nicotine 21 mg/24 hr 1 Patch (NICODERM) 1 Patch TRANSDERMAL DAILY And - nicotine -- REMOVE patch OTHER DAILY And - nicotine - verify patch OTHER q 8 H - clopidogrel 75 mg tab(s) (PLAVIX) 75 mg ORAL DAILY - budesonide 0.25 mg/2 mL 0.25 mg (PULMICORT) 0.25 mg INHALATION BID And - ipratropium-albuterol 3 mL nebulizer solution (DUONEB) 3 mL INHALATION QID - hyoscyamine sublingual 0.25 mg tab(s) (LEVSIN SL) 0.25 mg SUBLINGUAL AC and HS - finasteride 5 mg tab(s) (PROSCAR) 5 mg ORAL DAILY - tamsulosin ER 0.4 mg cap(s) (FLOMAX) 0.4 mg ORAL AT BEDTIME - atorvastatin 40 mg tab(s) (LIPITOR) 40 mg ORAL AT BEDTIME - senna 8.6 mg tab(s) (SENOKOT) 8.6 mg ORAL AT BEDTIME - polyethylene glycol 3350 17 g packet (MIRALAX, GLYCOLAX) 17 g ORAL DAILY - HYDROcodone 5 mg - acetaminophen 325 mg tablet (NORCO) 1 tablet ORAL q 4 H PRN - fentaNYL 50 mcg/mL 25 mcg injection (SUBLIMAZE) 25 mcg INTRAVENOUS q 2 H PRN - metoprolol tartrate (short acting) 25 mg tab(s) (LOPRESSOR) 25 mg ORAL q 12 H - warfarin dose per INR - Call physician daily for dose ORAL DAILY - WARFARIN Medication and Non-Pharmacologic VTE Prophylaxis/Anticoagul ants Anticoagulant AND Antiplatelet Medications (From admission, onward) Start Dose Route Frequency Ordered Stop 10/10/19 0900 clopidogrel 75 mg tab(s) (PLAVIX) 75 mg ORAL DAILY 10/09/19 1043 -- 10/11/19 0945 activity - mobilize patient (nc,wi) 10/08/19 1645 pneumatic compression stockings ([place], [place]) VTE Prophylaxis: on AC ALLERGIES No Known Allergies Objective PHYSICAL EXAM: Patient Vitals for the past 24 hrs: BP Temp Temp src Pulse Resp SpO2 10/12/19 0714 ? ? ? 89 16 ? 10/12/19 0703 (!) 121/46 36.7 ?C (98.1 ?F) Temporal 92 16 88 % 10/11/19 2307 148/52 37.2 ?C (99 ?F) Temporal 81 16 94 % 10/11/19 2106 ? ? ? 81 ? ? 10/11/192049 ? ? ? 78 18 (!) 86 % 10/11/19 1905 139/53 37.2 ?C (99 ?F) Temporal 80 18 (!) 85 % 10/11/19 1631 ? ? ? 74 20 ? 10/11/19 1622 ? ? ? 74 20 96 % 10/11/19 1444 151/60 36.7 ?C (98 ?F) Oral 74 16 93 % 10/11/19 1400 136/56 ? ? 72 22 95 % 10/11/19 1300 146/64 ? ? 76 22 93 % 10/11/19 1203 ? 37 ?C (98.6 ?F) Oral ? ? ? 10/11/19 1200 133/64 ? ? 74 17 95 % 10/11/19 1125 ? ? ? 80 25 ? 10/11/19 1117 ? ? ? 72 20 96 % 10/11/19 1100 128/78 ? ? 73 21 95 % 10/11/19 1000 157/62 ? ? 85 21 96 % 10/11/19 0900 125/70 ? ? 75 19 95 % 10/11/19 0800 141/54 37.2 ?C (99 ?F) Oral 73 21 98 % Intake/Output Summary (Last 24 hours) at 10/12/2019 0743 Last data filed at 10/12/2019 0618 Gross per 24 hour Intake 240 ml Output 1675 ml Net -1435 ml General: NAD Msk: L flank ecchymosis Vasc: + signals in L femoral, L DP, L PT, L AT + signals R DP, R PT DATA: Laboratory: Recent Labs 10/11/19 0330 10/10/19199910/10/19 1459 WBC 5.78 7.33 7.13 HB 8.9* 7.1* 8.3* HCT 27.2* 21.7* 24.9* PLT 140* 167 173 Recent Labs 10/11/19 0330 10/10/19 1459 10/10/19 0559 NA 136 138 136 K 3.9 4.3 3.8 BUN 8* 9* 11 CREAT 0.63* 0.68* 0.69* GLUC 107* 127* 107* MG 2.0 1.8 2.0 Recent Labs 10/11/19 1120 10/10/19199910/10/19 1459 10/10/19 0559 APTT -- 25.4 126.3* 109.7* INR 1.0 1.0 1.0 -- Assessment/Plan Impression: Pedro Pablo Sierra is a 69 year old White male who is POD# 4/2, admitted for surgical management of claudication w/ rest pain and is s/p L TELEVISION REPORTER EA w/ bovine patch, L RADHA and EIA thrombectomy, L CI and EI stenting 10/07 c/b thrombosis s/p : EIA to TELEVISION REPORTER bypass graft w. Ringed PTFE 10/09. Plan: F/u labs, if Hb stable, resume lovenox to coumadin bridge Reg diet, HLIV PO pain meds w/ IVBT S/p brittany-op abx No clark Cont. plavix Dispo: plan to d/c home today vs tomorrow w/ home PT HOSPITALIZATION(S) Indication for admission/procedure: BLE pain Important/Relevant PMH/PSH: s/p left femoral endarterectomy with patch, US guided access RCFA, L profundaplasty, RUFUS recanalization AND stenting, CRISPIN stenting on 10/23, UC, CAD previous WI, DM, HTN, HLD, COPD Overall Course: 63 year old male with acute onset of BLE pain. Taken to OR for initiation of thrombolysis thru LCIA/TORITO Procedure/Surgeries: 1. Aortogram with bilateral ileofemoral runoff via left brachial artery 2. Left leg angiogram, 3rd order 3. Placement of lysis catheter from distal aorta to left SFA, 20cm treatment zone [facility] Thrombectomy Airway Difficulty: NA OR Course: Uncomplicated UNIT (summarize and transfer summary into hospital course prior to transfer of care) Unit Course / Today's Impression: Currently Managed Major Problems (list): Date: 07/03/14 Aortoiliac thrombosis s/p lysis catheter placement and subsequent thrombectomy Hypertension Anticoagulation management Numbness LUE Issues to communicate at signout: RNF Duplex of L arm pending No problems updated. Elly Brown MD General Surgery PGY-5 For questions during nights (6pm - 6am) and weekends, please contact the General Surgery [employer] pager, [phone] Normal [facility] Protimeon 10-12-2019 PT Coag (PPP) [Time] 15.6 s High 9.7-13.0 [facility] Comment on above: Performed By: #### C BC, PT, BMP ####[facility] [place], [place] [phone] PT Coag (PPP) [Time] 1.5 s High 0.9-1.3 [facility] Comment on above: Result Comment: Teri min K Antagonist (VKA) Therapeutic Range: INR 2 to 3 (Target INR of 2.5) Note: For patients treated with VKA drugs, such as warfarin, the [place] [employer] 2012 Guideline recommends [...] to 3.5 (target INR of 3). Jael GH, et al. Chest 2012, 141:7S-47S Gio RA, et al. [facility] 2017, 70: 252-289 Performed By: #### C BC, PT, [facility] ####[facility] [place], [place] [phone] ANES POSTPROC EVALon 020 ANES POSTPROC EVAL HNO ID: [id number] Author: Cassie Zavala Service: ? Author Type: Anesthesiologist Type: Anesthesia Postprocedure Evaluation Filed: 10/11/2019 7:41 AM Note Text: POST ANESTHESIA EVALUATION NOTE : 1950 Procedure Summary Date: 10/10/19 Room / Location: [address] / OR Anesthesia Start: 54 Anesthesia Stop: 1430 Procedure: ENDARTERECTOMY FEMORAL (Left Leg) Diagnosis: Femoral thrombosis (HCC) (Femoral thrombosis (HCC) [I74.3]) Surgeon: Ryan May MD Responsible Provider: Rashawn Joyner Anesthesia Type: general ASA Status: 4 Anesthesia Type: general Last vitals Vitals Value Taken Time BP 136/52 10/11/2019 7:33 AM Temp 37.3 ?C (99.1 ?F) 10/11/2019 4:00 AM Pulse 79 10/11/2019 7:40 AM HR SpO2 78 10/11/2019 7:40 AM Resp 19 10/11/2019 7:40 AM SpO2 90 % 10/11/2019 7:40 AM Vitals shown include unvalidated device data. Post Anesthesia Patient Status Patient Evaluation: floor. Neurological Status: aware and responsive. Pulmonary Status: breathing comfortably on room air . Airway Control: returned to baseline unsupported. Cardiovascular Status: stable. Pain Management: clinically adequate. Postoperative Hydration: acceptable. Recommendation: continue current plan of care. SIGNATURE: Cassie Zavala MD PATIENT NAME: Pedro Pablo Sierra DATE: October 11, 2019 TIME: 7:41 AM CSN: [id number] Normal [facility] Basic Metabolic Panlon 10-10 Anion gap [Moles/Vol] 9 mmol/L Normal 9-18 [facility] Comment on above: Performed By: #### C BC, BMP, MG1, PHOS ####[place] [phone] Calcium [Mass/Vol] 7.7 mg/dL Low 8.5-10.5 [facility] Comment on above: Performed By: #### C BC, BMP, MG1, PHOS ####[place] [phone] Chloride [Moles/Vol] 101 mmol/L Normal 98-110 [facility] Comment on above: Performed By: #### C BC, BMP, MG1, PHOS ####[place] [phone] CO2 [Moles/Vol] 26 mmol/L Normal 23-32 [facility] Comment on above: Performed By: #### C BC, BMP, MG1, PHOS ####[place] [phone] Creatinine [Mass/Vol] 0.63 mg/dL Low 0.70-1.40 [facility] Comment on above: Performed By: #### C BC, BMP, MG1, PHOS ####[place] [phone] eGFR- Amer. >60 Normal >60 [facility] Comment on above: Performed By: #### C BC, BMP, MG1, PHOS ####[place] [phone] GFR/1.73 sq M predicted among non-blacks MDRD (S/P/Bld) [Vol rate/Area] mL/min/{1.73_m2} Normal >60 [facility] Comment on above: Performed By: #### C BC, BMP, MG1, PHOS ####[place] [phone] Glucose [Mass/Vol] 107 mg/dL High 65-100 [facility] Comment on above: Performed By: #### C BC, BMP, MG1, PHOS ####[place] [phone] Potassium [Moles/Vol] 3.9 mmol/L Normal 3.5-5.0 [facility] Comment on above: Performed By: #### C BC, BMP, MG1, PHOS ####[place] [phone] Sodium [Moles/Vol] 136 mmol/L Normal 135-146 [facility] Comment on above: Performed By: #### C BC, BMP, MG1, PHOS ####[place] [phone] Urea nitrogen [Mass/Vol] 8 mg/dL Low 10-25 [facility] Comment on above: Performed By: #### C BC, BMP, MG1, PHOS ####[place] [phone] [facility] HNO ID: [id number] Author: Bri (Rn) ОЛЕГ Swann Service: Case Management Author Type: Registered Nurse Type: Care Mgt Initial Assessment Filed: 10/11/2019 2:43 PM Note Text: CARE MANAGEMENT PROGRESS NOTE SERVICE DATE: 10/11/2019 SERVICE TIME: 2:38 PM LOS: 3 days [place] of Choice Given: Yes Level of Care Discussed: Home Care Financial Disclosure Provided: Yes Financial Disclosure Comments: discussed Needs Prior to Discharge: To Be Determined;Home Care Order CM discussed with pt discharge planning. pt has his home set up for his needs with elevator and refusing rehab at this time due to Covid 19 risks. Pt was active with [facility] for nurse visit and prefers to continue. CM made referral via ascripts, pt will need F2F for PT/OT/SN at d/c. CM flagged weekend CM staff for potential d/c this weekend and will need AVS faxed at d/c to [phone]. CM to follow as needed. SIGNATURE: Bri Swann RN,BSN PATIENT NAME: Pedro Pablo Sierra DATE: October 11, 2019 TIME: 2:38 PM PAGER/CONTACT #: [phone] Normal [facility] CBCon 10-11-2019 Erythrocyte distribution width (RBC) [Ratio] 15.8 % High 11.5-15.0 [facility] Comment on above: Performed By: #### C BC, BMP, MG1, PHOS ####[place] [phone] Hematocrit (Bld) [Volume fraction] 27.2 % Low 39.0-51.0 [facility] Comment on above: Performed By: #### C BC, BMP, MG1, PHOS ####[place] [phone] Hemoglobin (Bld) [Mass/Vol] 8.9 g/dL Low 13.0-17.0 [facility] Comment on above: Performed By: #### C BC, BMP, MG1, PHOS ####[phone] MCH (RBC) [Entitic mass] 29.4 pG Normal 26.0-34.0 [facility] Comment on above: Performed By: #### C BC, BMP, MG1, PHOS ####[place] [phone] MCHC (RBC) [Mass/Vol] 32.7 g/dL Normal 30.5-36.0 [facility] Comment on above: Performed By: #### C BC, BMP, MG1, PHOS ####[place] [phone] MCV (RBC) [Entitic vol] 89.8 fL Normal 80.0-100.0 [facility] Comment on above: Performed By: #### C BC, BMP, MG1, PHOS ####[place] [phone] Platelet mean volume (Bld) [Entitic vol] 9.9 fL Normal 9.0-12.7 [facility] Comment on above: Performed By: #### C BC, BMP, MG1, PHOS ####[place] [phone] Platelets (Bld) [#/Vol] 140 10*3/uL Low 150-400 [facility] Comment on above: Performed By: #### C BC, BMP, MG1, PHOS ####[place] [phone] RBC (Bld) [#/Vol] 3.03 10*6/uL Low 4.20-6.00 [facility] Comment on above: Performed By: #### C BC, BMP, MG1, PHOS ####[place] [phone] WBC (Bld) [#/Vol] 5.78 10*3/uL Normal 3.70-11.00 [facility] Comment on above: Performed By: #### C BC, BMP, MG1, PHOS ####[place] [phone] Magnesiumon 10-11-2019 Magnesium [Mass/Vol] 2.0 mg/dL Normal 1.7-2.6 [facility] Comment on above: Performed By: #### C BC, BMP, MG1, PHOS ####[phone] NURSING PROGon 10-11-2019 NURSING PROG HNO ID: [id number] Author: Briana (Rn) ОЛЕГ Hardy Service: ? Author Type: Registered Nurse Type: Nursing Progress Note Filed: 10/11/2019 2:37 PM Note Text: Nursing Progress Note Patient Name: Pedro Pablo Sierra Patient Location: [id number]/[facility]-01 __ Daily Note: 0700. Bedside report received from fast food shift supervisor RN. Patient is resting comfortably in bed at this time. Vital signs stable. 0800. Assessment complete; see documentation. 1000. Vascular team at bedside to assess patient and to discuss plan of care. 1120. PT/INR drawn from arterial line and sent to lab. 1136. at bedside to assess patient and to discuss plan of care. 1155. Arterial line removed and pressure applied until hemostasis was achieved. Pressure dressing applied. 1200. Reassessment complete; see documentation. No significant changes in assessment at this time. 1310. Clark catheter removed. 1408. Report called to RN on [facility] who will be resuming care of patient. 1430. Patient transferred to [facility] via bed on portable O2. All belongings and chart sent with patient. This note was completed by: Briana Hardy RN [facility] PROGRESSon 10-11-2019 PROGRESS HNO ID: [id number] Author: Noman Fish MD Service: Vascular Surgery Author Type: Resident Type: Progress Notes Filed: 10/11/2019 7:31 AM Note Text: [facility] V[facility]GERY POSTOP PROGRESS NOTE Service Date: 10/11/2019Admit Date: 10/08/2019Service Time: 7:26 AM LOS: 3 day(s) Primary Service: Vascular Surgery Vascular Physician: Ryan May MD Interval Events/Issues: Some oozing from incisions yesterday evening. Heparin held, 2uPRBC given with appropriate response 7.1->8.9. Pain well controlled Good uop No complaints Subjective Current Facility-Administered Medications Medication Dose Route Frequency - NaCl 0.9% 3-5 mL 3-5 mL INTRAVENOUS q 12 H - ondansetron 4 mg tab(s) (ZOFRAN) 4 mg ORAL q 6 H PRN Or - ondansetron (PF) 4 mg injection (ZOFRAN) 4 mg INTRAVENOUS q 6 H PRN - bisacodyl 10 mg suppository (DULCOLAX) 10 mg RECTAL DAILY PRN - magnesium hydroxide 400 mg/5 mL 30 mL (MOM) 30 mL ORAL/FEEDING TUBE DAILY PRN - acetaminophen 1,000 mg tab(s) (TYLENOL) 1,000 mg ORAL q 6 H - ipratropium-albuterol 3 mL nebulizer solution (DUONEB) 3 mL INHALATION q 4 H PRN - sertraline 100 mg tab(s) (ZOLOFT) 100 mg ORAL DAILY - mirtazapine 15 mg (REMERON) 15 mg ORAL AT BEDTIME - gabapentin 300 mg cap(s) (NEURONTIN) 300 mg ORAL q 12 H - pantoprazole DR 40 mg tab(s) (PROTONIX) 40 mg ORAL DAILY (6 AM) - dextrose 40 % 15 g 15 g ORAL PRN Or - glucagon 1 mg injection (GLUCAGEN) 1 mg INTRAMUSCULAR PRN Or - dextrose 50% in water 25 mL syringe 12.5 g INTRAVENOUS PRN - metoprolol tartrate (short acting) 12.5 mg tab(s) (LOPRESSOR) 12.5 mg ORAL q 12 H - amLODIPine 5 mg tab(s) (NORVASC) 5 mg ORAL DAILY - carBAMazepine XR 200 mg tab(s) (TEGretol XR) 200 mg ORAL BID - insulin lispro injection (rapid acting) (HumaLOG) SUBCUTANEOUS w MEALS AND HS - nicotine 21 mg/24 hr 1 Patch (NICODERM) 1 Patch TRANSDERMAL DAILY And - nicotine -- REMOVE patch OTHER DAILY And - nicotine - verify patch OTHER q 8 H - clopidogrel 75 mg tab(s) (PLAVIX) 75 mg ORAL DAILY - polyethylene glycol 3350 17 g packet (MIRALAX, GLYCOLAX) 17 g ORAL DAILY PRN - docusate sodium 100 mg cap(s) (COLACE) 100 mg ORAL BID - budesonide 0.25 mg/2 mL 0.25 mg (PULMICORT) 0.25 mg INHALATION BID And - ipratropium-albuterol 3 mL nebulizer solution (DUONEB) 3 mL INHALATION QID - NaCl 0.9% iv infusion 100 mL/hr INTRAVENOUS CONTINUOUS - fentaNYL 50 mcg/mL 25 mcg injection (SUBLIMAZE) 25 mcg INTRAVENOUS q 2 H PRN - hyoscyamine sublingual 0.25 mg tab(s) (LEVSIN SL) 0.25 mg SUBLINGUAL AC and HS - potassium phosphate 15 mmol in NaCl 0.9% 250 mL 15 mmol INTRAVENOUS ONCE - calcium gluconate 2 g in NaCl 0.9% 100 mL 2 g INTRAVENOUS ONCE Medication and Non-Pharmacologic VTE Prophylaxis/Anticoagul ants Anticoagulant AND Antiplatelet Medications (From admission, onward) Start Dose Route Frequency Ordered Stop 10/10/19 0900 clopidogrel 75 mg tab(s) (PLAVIX) 75 mg ORAL DAILY 10/09/19 1043 -- 10/08/19 1645 pneumatic compression stockings (fl,oh) VTE Prophylaxis: held for bleeding ALLERGIES No Known Allergies Objective PHYSICAL EXAM: Patient Vitals for the past 24 hrs: BP Temp Temp src Pulse Resp SpO2 10/10/19 0735 ? ? ? 69 23 ? 10/10/19 0727 ? ? ? 69 22 96 % 10/10/19 0500 (!) 121/49 ? ? 70 24 95 % 10/10/19 0400 113/55 36.7 ?C (98.1 ?F) Oral 72 20 96 % 10/10/19 0300 125/101 ? ? 71 21 98 % 10/10/19 0200 126/53 ? ? 67 23 95 % 10/10/19 0100 127/58 ? ? 74 23 92 % 10/10/19 0000 141/58 37 ?C (98.6 ?F) Oral 73 ? 96 % 10/09/19 2300 136/62 ? ? 76 ? 95 % 10/09/19 2200 157/66 ? ? 81 ? 96 % 10/09/19 2100 146/57 ? ? 84 ? 95 % 10/09/19 2000 142/56 37 ?C (98.6 ?F) Oral 82 ? 95 % 10/09/19 1917 ? ? ? 93 20 93 % 10/09/19 1902 ? ? ? 95 20 95 % 10/09/19 1900 135/55 ? ? 95 ? 94 % 10/09/19 1800 146/65 ? ? 83 26 93 % 10/09/19 1700 140/57 ? ? 79 17 92 % 10/09/19 1643 ? 90 % 10/09/19 1640 ? ? ? 72 21 91 % 10/09/19 1636 ? ? ? 69 22 97 % 10/09/19 1600 131/54 36.6 ?C (97.9 ?F) Oral 81 24 94 % 10/09/19 1500 123/51 ? ? 70 15 95 % 10/09/19 1401 ? ? ? 71 25 92 % 10/09/19 1400 (!) 128/46 ? ? 71 22 (!) 87 % 10/09/19 1356 ? ? ? 72 23 ? 10/09/19 1300 138/50 ? ? 74 14 95 % 10/09/19 1200 135/76 ? ? 75 10 97 % 10/09/19 1117 ? 36.3 ?C (97.3 ?F) Temporal ? ? ? 10/09/19 1100 85/73 ? ? 72 17 93 % 10/09/19 1000 (!) 116/49 ? ? 71 17 95 % 10/09/19 0900 155/75 ? ? 75 19 95 % 10/09/19 0800 125/65 ? ? 96 23 94 % Intake/Output Summary (Last 24 hours) at 10/11/2019 0723 Last data filed at 10/11/2019 0600 Gross per 24 hour Intake 6424 ml Output 2530 ml Net 3894 ml CONSTITUTIONAL: No acute distress NEUROLOGIC/PSYCHIATRIC : Oriented to time, place AND person HEENT: No lesions LUNGS: unlabored HEART: Regular rate AND rhythm ABDOMEN: Soft INTEGUMENTARY: Wound - No SURGICAL SITES: Groin - left; Hematoma extending to flank MUSCULOSKELETAL: No deformities Pulses/Signals: Femoral Right: Palpable +1 - Left: Biphasic Signal Dorsalis Pedis Right: Triphasic Signal - Left: Biphasic Signal PT R: triphasic - Left: biphasic DATA: Laboratory: Recent Labs 10/11/19 0330 10/10/19199910/10/19 1459 WBC 5.78 7.33 7.13 HB 8.9* 7.1* 8.3* HCT 27.2* 21.7* 24.9* PLT 140* 167 173 Recent Labs 10/11/19 0330 10/10/19 1459 10/10/19 0559 NA 136 138 136 K 3.9 4.3 3.8 BUN 8* 9* 11 CREAT 0.63* 0.68* 0.69* GLUC 107* 127* 107* MG 2.0 1.8 2.0 Recent Labs 10/10/19199910/10/19 1459 10/10/19 0559 10/09/19 1625 APTT 25.4 126.3* 109.7* < > 23.9 INR 1.0 1.0 -- -- 1.0 < > = values in this interval not displayed. Assessment/Plan Impression: Pedro Pablo Sierra is a 69 year old White male who is POD# 2 s/p redo L FEA, L iliac stenting, initially admitted for rest pain. Plan: -Holding AC for now, will discuss with Dr. May when to resume. -Monitor incision site for hematoma growth/ooze, trend H/H -Possible RNF today if stable To be discussed with Dr. May. HOSPITALIZATION(S) Indication for admission/procedure: BLE pain Important/Relevant PMH/PSH: s/p left femoral endarterectomy with patch, US guided access RCFA, L profundaplasty, RUFUS recanalization AND stenting, CRISPIN stenting on 10/23, UC, CAD previous WI, DM, HTN, HLD, COPD Overall Course: 63 year old male with acute onset of BLE pain. Taken to OR for initiation of thrombolysis thru LCIA/TORITO Procedure/Surgeries: 1. Aortogram with bilateral ileofemoral runoff via left brachial artery 2. Left leg angiogram, 3rd order 3. Placement of lysis catheter from distal aorta to left SFA, 20cm treatment zone [facility] 07/02/2014 Thrombectomy Airway Difficulty: NA OR Course: Uncomplicated UNIT (summarize and transfer summary into hospital course prior to transfer of care) Unit Course / Today's Impression: Currently Managed Major Problems (list): Date: 07/03/14 Aortoiliac thrombosis s/p lysis catheter placement and subsequent thrombectomy Hypertension Anticoagulation management Numbness LUE Issues to communicate at signout: RNF Duplex of L arm pending No problems updated. SIGNATURE: Noman Fish MD PATIENT NAME: Pedro Pablo Sierra DATE: 10/11/2019 TIME: 7:24 AM PAGER/CONTACT #: See Below ETX#[id number] For questions Monday through Monday 6am to 6pm please page Red Team [phone] For questions during nights (6pm - 6am) and weekends, please contact the General Surgery [employer]r pager, [phone] Normal [facility] PROGRESS HNO ID: [id number] Author: Rashawn Huntley Service: Critical Care Author Type: Anesthesiologist Type: Progress Notes Filed: 10/11/2019 11:08 AM Note Text: SICU PROGRESS NOTE SERVICE DATE: 10/11/2019 SERVICE TIME: 6:40 AM POD #: 1/3 Subjective Interval events (last 24 hours) / Pertinent ROS: Afebrile. HD stable. Complains of pain and swelling of left groin. Received 2 units of pRBC for anemia. Objective VITAL SIGNS: BP 139/50 Pulse 75 Temp 37.3 ?C (99.1 ?F) (Oral) Resp 23 Ht 172.7 cm (5' 8) Wt 81 kg (178 lb 9.2 oz) SpO2 95% BMI 27.15 kg/m? PHYSICAL EXAM: General Appearance: Well appearing, In no acute distress Neuro: Awake, Follows commands, Moving all extremities and drowsy but arousable Pulmonary: Clear to auscultation. Breath Sounds Equal: Yes Cardiovascular: Regular rhythm Abdomen: Soft and Nontender Extremities: Edema- No Peripheral pulses- Left Femoral unable to palpate due to dressing, DP and PT biphasic. Right Femoral palpable DP and PT biphasic Wounds/Drsgs- Yes Surgical incisions covered with pressure dressing. Presence of Pressure Ulcer No Surgical incisions: pressure dressing. PATIENT LINES ASSESSED: Central Line: No central lines Arterial Line: Left radial a line Date of insertion: 10/10/19 CURRENT MEDICATIONS: Medications reviewed. Please refer to EPIC for list of inpatient medications. Current Facility-Administered Medications Medication Dose Route Frequency Provider Last Rate Last Dose - potassium phosphate 15 mmol in NaCl 0.9% 250 mL 15 mmol INTRAVENOUS ONCE Libby (Res) Johnson 41.67 mL/hr at 10/11/19 0502 15 mmol at 10/11/19 0502 - calcium gluconate 2 g in NaCl 0.9% 100 mL 2 g INTRAVENOUS ONCE Libby (Res) Johnson 100 mL/hr at 10/11/19 0631 2 g at 10/11/19 0631 - fentaNYL 50 mcg/mL 25 mcg injection (SUBLIMAZE) 25 mcg INTRAVENOUS q 2 H PRN Elly (Res) Trudy-[place] 25 mcg at 10/11/19 0648 - hyoscyamine sublingual 0.25 mg tab(s) (LEVSIN SL) 0.25 mg SUBLINGUAL AC and HS Misael (Res) MD Steffany - amLODIPine 5 mg tab(s) (NORVASC) 5 mg ORAL DAILY Misael (Res) MD Steffany 5 mg at 10/09/19 0755 - carBAMazepine XR 200 mg tab(s) (TEGretol XR) 200 mg ORAL BID Juliana (Pa) Akshat 200 mg at 10/10/192201 - insulin lispro injection (rapid acting) (HumaLOG) SUBCUTANEOUS w MEALS AND HS Juliana (Pa) Akshat - nicotine 21 mg/24 hr 1 Patch (NICODERM) 1 Patch TRANSDERMAL DAILY Juliana (Pa) Akshat 1 Patch at 10/10/19816 And - nicotine -- REMOVE patch OTHER DAILY Juliana (Pa) Akshat And - nicotine - verify patch OTHER q 8 H Juliana (Pa) Akshat - clopidogrel 75 mg tab(s) (PLAVIX) 75 mg ORAL DAILY Roman (Plant Operations Manager) Heinly 75 mg at 10/10/19816 - polyethylene glycol 3350 17 g packet (MIRALAX, GLYCOLAX) 17 g ORAL DAILY PRN Elly (Res) Chumakova-Jennifer - docusate sodium 100 mg cap(s) (COLACE) 100 mg ORAL BID Elly (Res) Chumakova-Jennifer 100 mg at 10/10/192202 - budesonide 0.25 mg/2 mL 0.25 mg (PULMICORT) 0.25 mg INHALATION BID Elly (Res) [place] 0.25 mg at 10/10/192046 And - ipratropium-albuterol 3 mL nebulizer solution (DUONEB) 3 mL INHALATION QID Elly (Res) Chumakova-Jennifer 3 mL at 10/10/192046 - NaCl 0.9% iv infusion 100 mL/hr INTRAVENOUS CONTINUOUS Lely (Res) [place]um[place]ova[place] 100 mL/hr at 10/10/191999 100 mL/hr at 10/10/191999 - NaCl 0.9% 3-5 mL 3-5 mL INTRAVENOUS q 12 H Misael (Res) MD Steffany 5 mL at 10/10/192099 - ondansetron 4 mg tab(s) (ZOFRAN) 4 mg ORAL q 6 H PRN Misael (Azalea) MD Steffany Or - ondansetron (PF) 4 mg injection (ZOFRAN) 4 mg INTRAVENOUS q 6 H PRN Misael (Azalea) MD Steffany 4 mg at 10/09/19 0830 - bisacodyl 10 mg suppository (DULCOLAX) 10 mg RECTAL DAILY PRN Misael (Azalea) MD Steffany - magnesium hydroxide 400 mg/5 mL 30 mL (MOM) 30 mL ORAL/FEEDING TUBE DAILY PRN Misael (Azalea) MD Steffany - acetaminophen 1,000 mg tab(s) (TYLENOL) 1,000 mg ORAL q 6 H Misael (Azalea) MD Steffany 1,000 mg at 10/10/19 0536 - ipratropium-albuterol 3 mL nebulizer solution (DUONEB) 3 mL INHALATION q 4 H PRN Misael (Azalea) MD Steffany 3 mL at 10/10/19 1702 - sertraline 100 mg tab(s) (ZOLOFT) 100 mg ORAL DAILY Misael (Azalea) MD Steffany 100 mg at 10/10/19 0817 - mirtazapine 15 mg (REMERON) 15 mg ORAL AT BEDTIME Misael (Azalea) MD Steffany 15 mg at 10/10/19 2203 - gabapentin 300 mg cap(s) (NEURONTIN) 300 mg ORAL q 12 H Misael (Azalea) MD Steffany 300 mg at 10/10/19 2203 - pantoprazole DR 40 mg tab(s) (PROTONIX) 40 mg ORAL DAILY (6 AM) Misael (Azalea) MD Steffany 40 mg at 10/11/19 0635 - dextrose 40 % 15 g 15 g ORAL PRN Misael (Azalea) MD Steffany Or - glucagon 1 mg injection (GLUCAGEN) 1 mg INTRAMUSCULAR PRN Misael (Azalea) MD Steffany Or - dextrose 50% in water 25 mL syringe 12.5 g INTRAVENOUS PRN Misael (Res) MD Steffany - metoprolol tartrate (short acting) 12.5 mg tab(s) (LOPRESSOR) 12.5 mg ORAL q 12 H Misael Jeter MD 12.5 mg at 10/10/19 2203 PERTINENT CULTURES: Cultures were reviewed. Pertinent cultures from this hospitalization are listed below. Plese refer to [facility] for a full listing of cultures obtained during this hospitalization. ? N/A DIAGNOSTIC TESTS: The following diagnostic tests/findings were reviewed: ? Most recent labs and imaging results. MOST RECENT CXR FINDINGS: Bibasilar atelectasis. OPERATIVE PROCEDURE(S): Date of surgery: 10/08/19 Procedure: Left common TELEVISION REPORTER endarterectomy with bovine path Left profundoplasty Left iliac stenting X4 (I-Cast X2, Jessica X2) Multiple angiograms with angioplasty Surgeon: Dr. May Date of surgery: 10/10/19 Procedure: Left EIA to TELEVISION REPORTER bypass with 7mm ringed PTFE end to end proximally to the previously placed bovine patch end to side distally. Completion angiogram Retrograde open RADHA angioplasty with 8 x 80 mustang balloon. Open thrombectomy L iliac artery by leg incision. Surgeon: Dr. 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 May on 10/08/19. She is admitted to SICU post-operatively for neurovascular checks and close hemodynamic monitoring. Developed L TELEVISION REPORTER occlusion POD2 and taken back to OR on 10/10/19 for left groin hematoma evacuation, left EIA to TELEVISION REPORTER PTFE bypass, left liac thrombectomy. Transferred to SICU for hemodynamic monitoring and neurovascular checks. ? ? REASON FOR ICU ADMISSION: Neurovascular checks q2h and hemodynamic monitoring ? Neuro: -Pain regimen: tylenol, PRN oxycodone, Fentanyl -Resume gabapentin, carbamazepine, Remeron, Zoloft -Hold other home meds ? CV: CAD, CHF, HTN, HLD, -Continue Norvasc -Lopressor 12.5mg BID ? Pulm: PJ, COPD -Duonebs q4h -Encourage OOB and IS Renal: -Monitor I/Os -Replete lytes -IVF ? GI: -Diet: NPO. Resume diet per Vascular. -Protonix for GERD -Bowel regimen ? Heme: -Monitor for signs of bleeding. Had left groin ooze immediate post-op and pressure dressing applied. -Trend H/H. Transfused 2 units pRBC overnight. -Hold Coumadin -Heparin resumption to be determined per Vascular surgery. -DVT ppx: SCDs ? Fluid/Electrolyte/Nutr ition: -mIVF ? ID: -Monitor for signs of infection -Periop Abx: Ancef for 24hr ? Endo: DM2 -SSI 1 -Hold home meds ? -Encourage OOB. -PT/OT evaluation ? Lines/Tubes/Prophylaxi s/Disposition: -Lines: Right radial a line, PIVs -Tubes: Clark -Prophylaxis: SCDs -Dispo: Transfer to [facility] Medication and Non-Pharmacologic VTE Prophylaxis/Anticoagul ants Anticoagulant AND Antiplatelet Medications (From admission, onward) Start Dose Route Frequency Ordered Stop 10/10/19 0900 clopidogrel 75 mg tab(s) (PLAVIX) 75 mg ORAL DAILY 10/09/19 1043 -- 10/08/19 1700 activity - mobilize patient ([place]) 10/08/19 1645 pneumatic compression stockings ([place]) VTE Prophylaxis: Contraindicated elevated risk of bleeding To be seen and discussed on rounds with SICU staff: Dr. Huntley ICU Checklist --------- --- VTE Prophylaxis: SIGNATURE: Misael Jeter MD PATIENT NAME: Pedro Pablo Sierra DATE: October 11, 2019 TIME: 6:40 AM PAGER/CONTACT #: [phone] [facility] STAFF PHYSICIAN NOTE OF PERSONAL INVOLVEMENT IN CARE ? I have reviewed the progress note?obtained and documented by the resident?and I personally participated in the echevarria components. I have discussed the case and management of the patient's care. The following comments revise or confirm relevant echevarria components of their note. LLE ischemia PVD Acute post-op pain Lupus anticoagulant PJ COPD Current smoker Essential HTN GERD ? Procedure/Surgeon 10/08/19 S/P L TELEVISION REPORTER endarterectomy with bovine path, profundoplasty and iliac stenting 10/10/19 Return to the OR for Femoral endarterectomy ? Pain is adequately controlled --Multimodal pain control HD's reassuring Signals reassuring following OR yesterday No signs of respiratory compromise, 4L NC --Broncho-dilators ordered Diet advanced and tolerating UOP exceeds expectations, no signs of FLEX Afebrile and without leukocytosis Defer AC to vascular surgery S/P 2 units PRBC post OR with adequate response Adequate glycemic control with SSI Following discussion with the vascular team, patient is stable to transfer to a lower level of care outside the ICU Rashawn Huntley DO 11:08 AM October 11, 2019 Normal [facility] Phosphoruson 10-11-2019 Phosphate [Mass/Vol] 1.9 mg/dL Low 2.5-4.5 [facility] Comment on above: Performed By: #### C BC, BMP, MG1, PHOS ####[address] [phone] Protimeon 10-11-2019 PT Coag (PPP) [Time] 10.9 s Normal 9.7-13.0 [facility] Comment on above: Performed By: #### P T ####[address] [phone] PT Coag (PPP) [Time] 1.0 s Normal 0.9-1.3 [facility] Comment on above: Result Comment: Teri min K Antagonist (VKA) Therapeutic Range: INR 2 to 3 (Target INR of 2.5) Note: For patients treated with VKA drugs, such as warfarin, the [place] [employer] 2012 Guideline recommends [...] to 3.5 (target INR of 3). Jael GH, et al. Chest 2012, 141:7S-47S Gio KENNY et al. [facility] 2017, 70: 252-289 Performed By: #### P T ####[facility] [place], [place] [phone] THERAPY NTon 10-11-2019 THERAPY NT HNO ID: [id number] Author: Gini (Pt) Eugenia Melvin Service: Physical Therapy Author Type: Physical Therapist Type: Therapy (PT/OT/Speech/Resp) Filed: 10/11/2019 10:43 AM Note Text: Physical Therapy Treatment SERVICE DATE: 10/11/2019 SERVICE TIME: 35 to 1020 ROOM: [id number] Recommended Discharge Disposition: Home PT Anticipated Discharge Needs: Physical Assist at Home Physical Assist at Home for: Cleaning;Laundry;Meals ;Transportation;Shoppi ng Supervision at Home due to: Impaired cognition Recommended Discharge Equipment: To Be Determined PT Recommendations to Nursing: Ambulate with device;In halls;OOB for Meals;With assist of 1 person Device: Wheeled Walker PT 6 Clicks Score: 18 Precautions/Activity Restrictions: Bed/Chair Alarm;Fall Risk Precaution/Activity Restriction Comments: heart healthy diet, mobility pt ASSESSMENT : Patient presents s/p Left femoral endarterectomy, stenting yesterday, 10/10/19. Mobility declined due to pain today, pt with difficulty WB on Left LOWER EXTREMITY now, and pain is increased. Likely he will recover as expected and still benefit from home PT, but due to decline since evaluation; it may be more to have a back up plan of SNF. Patient Disposition at Start of Session: OOB in Chair;Call Nelson in Reach;Chair Alarm Patient Disposition at End of Session: OOB in Chair;Call Nelson in Reach;Chair Alarm Tolerance Limited By Pain;Other: See Comment(reports of L LE instability) Physical Therapy Problem List: Safety Deficits;Decreased Activity Tolerance;Decreased Strength;Functional Mobility Impairment;Balance Impaired;Pain Patient /Caregiver Goals: Other: See Comment(ind functional mobility) Goals for Plan of Care: Able to perform HEP with: Independent Rolling with: Modified Independent Transfer supine to/from sit with: Modified Independent Transfer sit to/from stand with: Modified Independent Ambulate with: Modified Independent Distance: 200 Device: Wheeled Walker Ambulate up and down steps with: Modified Independent Number of steps: 5 Device: Rail Progress Toward Goals: Progressing slower than expected Due To: surgery, now POD number 1. Rehab Potential: Good PLAN: Treatment Frequency (times per week): 5 Current admission Treatment Interventions: Education;Strengthenin g;Functional Mobility Training;Balance Training;Energy Conservation Training Plan of Care developed with: Patient TREATMENT INTERVENTIONS: Therapy Diagnosis: Reduced mobility-other Interventions Provided: Therapeutic Activity (80607);Therapeutic Exercise (00206);Gait Training (26184) Therapeutic Exercise (28136) Treatment Minutes: 15 1 unit Skilled Intervention(s): Instruction in therapeutic exercise supine, very gentle with Daisha GOOD. Edu on rationale of exercises. Therapeutic Activity (35461) Treatment Minutes: 20 1 unit Skilled Intervention(s): Instructed patient in supine to sit pushing with upper extremities to sit up Instructed patient in supine to and from sit pushing with upper extremities to sit up Instruction in sit to stand technique with proper hand placement and body positioning at edge of bed/chair Gait Training (47430) Treatment Minutes: 10 1 unit Skilled Intervention(s): Instruction in sequencing, gait pattern and Instruction in correction of gait deviations Total Timed Code Treatment Minutes: 45 Total Treatment Time (minutes): 45 SUBJECTIVE: Current Hospital Course: Chart reviewed and no significant medical updates relevant to therapy were noted Reason for Physical Therapy Consult : PVD s/p L LE redo TELEVISION REPORTER endarterectomy, L profundoplasty, iliac stenting on 10/08/19 Relevant Past Medical History: S/p L femoral endarterectomy/aoroili ac stenting Patient Report: My Left leg is incredibly sore right now, moving is going to have to be slow. (And it is.) Home Environment Patient Lives With: Self/Alone Assistance Available: time study clerk Entry To Home: Stairs;Other: See Comment(stair lift) Number Of Stairs Into Home: 4 Number Of Stairs To Bed/Bath: 0 Tub/Shower Type: Walk in Laundry: First floor- in unit Equipment Owned: Home Oxygen;Shower Chair;Grab Bars-Shower;Hand Held Shower;Commode-Raised; Cane;Wheeled Walker Prior Functional Level: Within Functional Limits;Required Assistance Assistance Required With: Meals(has MOW) Prior Functional Level Comments: Per pt, Ind ADLs, IADLs, drives, amb using cane. Receives MOW. OBJECTIVE: Mini Cog Score: 1 (10/09/19 1010) CURRENT FUNCTIONAL STATUS: Current Functional Mobility Assist Level Additional Information Rolling Moderate Assistance Supine to Sit Moderate Assistance Sit to Supine Moderate Assistance Scooting Moderate Assistance Sit to Stand Minimal Assistance Stand to Sit Contact Guard Assistance Bed to Chair Toilet/Commode Gait Minimal Assistance Gait Device: Wheeled Walker Gait Distance (feet): 4 Stairs Curb Step Car Transfer Gait Deviations Left Lower Extremity: Weight bearing decreased General Deviations/Observation s: Odilia decreased;Flexed trunk posture;Antalgic gait;Step length decreased Balance: Static Sitting;Static Standing;Dynamic Standing Static Sitting Balance: Fair Patient able to maintain balance with handhold support, may require occasional minimal assistance Static Standing Balance: Fair Patient able to maintain balance with handhold support, may require occasional minimal assistance Dynamic Standing Balance: Fair Patient accepts minimal challenge, able to maintain balance while turning head/trunk JH-HLM: 5: Standing (1 or more minutes) Please see discipline specific clinical documentation flowsheet for complete details for this therapy evaluation/treatment. SIGNATURE: Gini Melvin PT PATIENT NAME: Pedro Pablo Sierra DATE: October 11, 2019 TIME: 10:40 AM Normal [facility] THERAPY NT HNO ID: [id number] Author: Caitlin Thomas Service: Occupational Therapy Author Type: Occupational Therapist Type: Therapy (PT/OT/Speech/Resp) Filed: 10/11/2019 6:48 AM Note Text: OCCUPATIONAL THERAPY MISSED VISIT SERVICE DATE: 10/11/2019 SERVICE TIME: 0647 to 0647 ROOM: [id number] Attempted Treatment. Patient not seen due to Incomplete Orders. Pt is currently on bedrest. Please update activity orders when medically appropriate for participation in Occupational Therapy treatment and out of bed mobility. Thank you. SIGNATURE: Caitlin Thomas OTR/L PATIENT NAME: Pedro Pablo Sierra DATE: October 11, 2019 TIME: 6:47 AM Normal [facility] ABG Complete Eval FOR WEST U SE ONLYon 10-10-2019 Base Excess 1 mmol/L Normal [facility] Comment on above: Result Comment: -3 t o 3 Performed By: #### A BGRTC ####[place] [id number] [place] [phone] Calcium [Mass/Vol] 1.29 mmol/L Normal 1.15-1.35 [facility] Comment on above: Performed By: #### A BGRTC ####[place] [phone] Carboxyhemoglobin,Art 1.0 % Normal <2.0 [facility] Comment on above: Performed By: #### A BGRTC ####[place] [phone] Chloride, Whole Bld FOR WEST USE ONLY 105 mmol/L Normal 98-107 [facility] Comment on above: Performed By: #### A BGRTC ####[place] [phone] CO2 [Moles/Vol] 27 mmol/L Normal 22.0-28.0 [facility] Comment on above: Performed By: #### A BGRTC ####[place] [phone] Glucose [Mass/Vol] 132 mg/dL High 65-100 [facility] Comment on above: Performed By: #### A BGRTC ####[place] [phone] HCO3 (Bld) [Moles/Vol] 26 mmol/L Normal 22-26 [facility] Comment on above: Performed By: #### A BGRTC ####[facility] [place], [place] [phone] Hematocrit (Bld) [Volume fraction] 26.3 % Low 42.0-52.0 [facility] Comment on above: Performed By: #### A BGRTC ####[place] [phone] Hemoglobin (Bld) [Mass/Vol] 8.5 g/dL Low 14-18 [facility] Comment on above: Performed By: #### A BGRTC ####[place] [phone] Lactate [Moles/Vol] 1.5 mmol/L Normal 0.4-2.0 [facility] Comment on above: Performed By: #### A BGRTC ####[place] [phone] Methemoglobin 1.4 % Normal 0.4-1.5 [facility] Comment on above: Performed By: #### A BGRTC ####[place] [phone] O2 Administered 21.0 Normal [facility] Comment on above: Performed By: #### A BGRTC ####[place] [phone] Oxygen (Bld) [Partial pressure] 136 mm Hg High 80-100 [facility] Comment on above: Performed By: #### A BGRTC ####[place] [phone] Oxygen (Bld) [Partial pressure] 99 % High 90-98 [facility] Comment on above: Performed By: #### A BGRTC ####[place] [phone] Oxyhemoglobin, Art. 96 % Normal 94-100 [facility] Comment on above: Performed By: #### A BGRTC ####[place] [phone] pCO2 46 mm Hg Normal 35-48 [facility] Comment on above: Performed By: #### A BGRTC ####[place] [phone] pH (Bld) 7.37 [pH] Normal 7.35-7.45 [facility] Comment on above: Performed By: #### A BGRTC ####[place] [phone] PO2FI FOR WEST USE ONLY 648 mmHG High 400-500 F [facility] Comment on above: Performed By: #### A BGRTC ####[place] [phone] Potassium [Moles/Vol] 3.9 mmol/L Normal 3.5-5.0 [facility] Comment on above: Performed By: #### A BGRTC ####[place] [phone] Sodium [Moles/Vol] 137 mmol/L Normal 135-145 [facility] Comment on above: Performed By: #### A BGRTC ####[place] [phone] Base Excess 2 mmol/L Normal [facility] Comment on above: Result Comment: -3 t o 3 Performed By: #### A BGRTC ####[place] [phone] Calcium [Mass/Vol] 1.09 mmol/L Low 1.15-1.35 [facility] Comment on above: Performed By: #### A BGRTC ####[phone] Carboxyhemoglobin,Art 1.3 % Normal <2.0 [facility] Comment on above: Performed By: #### A BGRTC ####[place] [phone] Chloride, Whole Bld FOR WEST USE ONLY 106 mmol/L Normal 98-107 [facility] Comment on above: Performed By: #### A BGRTC ####[place] [phone] CO2 [Moles/Vol] 28 mmol/L Normal 22.0-28.0 [facility] Comment on above: Performed By: #### A BGRTC ####[place] [phone] Glucose [Mass/Vol] 129 mg/dL High 65-100 [facility] Comment on above: Performed By: #### A BGRTC ####[facility] [place] [phone] HCO3 (Bld) [Moles/Vol] 27 mmol/L High 22-26 [facility] [facility] Comment on above: Performed By: #### A BGRTC ####[place] [phone] Hematocrit (Bld) [Volume fraction] 24.6 % Low 42.0-52.0 [facility] Comment on above: Performed By: #### A BGRTC ####[place] [phone] Hemoglobin (Bld) [Mass/Vol] 7.9 g/dL Low 14-18 [facility] Comment on above: Performed By: #### A BGRTC ####[place] [phone] Lactate [Moles/Vol] 1.1 mmol/L Normal 0.4-2.0 [facility] Comment on above: Performed By: #### A BGRTC ####[place] [phone] Methemoglobin 1.2 % Normal 0.4-1.5 [facility] Comment on above: Performed By: #### A BGRTC ####[place] [phone] O2 Administered 21.0 [facility] Comment on above: Performed By: #### A BGRTC ####[place] [phone] Oxygen (Bld) [Partial pressure] 164 mm Hg High 80-100 [facility] Comment on above: Performed By: #### A BGRTC ####[place] [id number] [place] [phone] Oxygen (Bld) [Partial pressure] 99 % High 90-98 [facility] Comment on above: Performed By: #### A BGRTC ####[place] [phone] Oxyhemoglobin, Art. 97 % Normal 94-100 [facility] Comment on above: Performed By: #### A BGRTC ####[place] [phone] pCO2 44 mm Hg Normal 35-48 [facility] Comment on above: Performed By: #### A BGRTC ####[place] [phone] pH (Bld) 7.40 [pH] Normal 7.35-7.45 [facility] Comment on above: Performed By: #### A BGRTC ####[place] [phone] PO2FI FOR WEST USE ONLY 781 mmHG High 400-500 F [facility] Comment on above: Performed By: #### A BGRTC ####[place] [phone] Potassium [Moles/Vol] 3.6 mmol/L Normal 3.5-5.0 [facility] Comment on above: Performed By: #### A BGRTC ####[place] [phone] Sodium [Moles/Vol] 137 mmol/L Normal 135-145 [facility] Comment on above: Performed By: #### A BGRTC ####[place] [phone] ALLIED HEALTHon 10-10-2019 ALLIED HEALTH HNO ID: [id number] Author: William Renee (Rt) Service: Radiology Author Type: Oven Worker Type: Allied Health Filed: 10/10/2019 6:31 AM Note Text: Radiology Service Progress Note PATIENT NAME: Pedro Pablo Sierra DATE OF SERVICE: October 10, 2019 TIME: 6:31 AM PATIENT IDENTITY VERIFICATION COMPLETED USING TWO (2) IDENTIFIERS: Name and Date of confirmed by patient verbally. PATIENT GENDER DATA: Male PATIENT RELEVANT IMPLANT DATA REVIEWED: Not Applicable RADIOLOGY DEPARTMENT: General X-ray: Exam(s) Completed: Chest X-Ray PERIPHERAL IV DATA: Not applicable SIGNED BY: RT Víctor October 10, 2019 6:31 AM [facility] ANES PRE-OPon 10-10-2019 ANES PRE-OP HNO ID: [id number] Author: Joey Markveronika Service: ? Author Type: Anesthesiologist Type: Anesthesia Preprocedure Evaluation Filed: 10/10/2019 8:24 AM Note Text: ANESTHESIOLOGY DAY OF SURGERY NOTE : 1950 Procedure(s) (LRB): ENDARTERECTOMY FEMORAL (Left) Surgeon(s): Ryan May MD Estimated body mass index is 26.35 kg/m? as calculated from the following: Height as of this encounter: 172.7 cm (5' 8). Weight as of this encounter: 78.6 kg (173 lb 4.5 oz). Most recent hematocrit and potassium results: Hematocrit,POC 23.1 10/10/2019 Potassium, POC 3.8 10/10/2019 Relevant Problems CARDIO (+) CAD (coronary artery disease) (+) Headache, hemicrania continua (+) Hypertension (+) PVD (peripheral vascular disease) ([facility]) (+) s/p left femoral endarterectomy/aortoil iac stenting 10/08/2019 (now with L TELEVISION REPORTER occlusion) PULMONARY (+) COPD (chronic obstructive pulmonary disease) ([facility]) (+) PJ (obstructive sleep apnea) ANESTHESIA (+) PJ (obstructive sleep apnea) NEURO-PSYCH (+) Headache GI (+) GERD (gastroesophageal reflux disease) Other (+) Anemia due to acute blood loss (Hgb 7.4 this AM; will order 2 units PRBCs) (+) Lupus anticoagulant disorder ([facility]) I - PHYSICAL EVALUATION AIRWAY Patient intubated: No. Mallampati: II. TM distance: >3 FB. Neck ROM: full ROM without neurological symptoms. Mouth opening: adequate. Short neck: no. Thick neck: no DENTAL Dental findings: edentulous. Additional exam findings: no II - ANESTHESIA PLAN ASA Score: 4 Anesthetic Plan: general Airway type: ETT NPO Status: adequate Monitoring plan: invasive hemodynamic monitoring. Monitoring method: arterial line Postoperative analgesic plan: parenteral or oral opioids and multimodal analgesia. Anesthetic Risks, Benefits, Alternatives, Personnel Discussed. Consent obtained from: patient. Patient / Surrogate agrees to blood products: Yes DNR status not reviewed with patient and/or family prior to surgery. Significant changes in the patient condition since the History and Physical, not otherwise documented in primary service progress note: no. Potential Anesthesia issues that may suggest increased risk of complications or contractions to planned procedure: none. Vitals Value Taken Time BP 130/53 10/10/2019 8:00 AM Pulse 76 10/10/2019 8:20 AM Resp 23 10/10/2019 8:20 AM Temp 36.8 ?C (98.2 ?F) 10/10/2019 8:00 AM SpO2 91 % 10/10/2019 8:20 AM Vitals shown include unvalidated device data. Facility-Administered Medications as of 10/10/2019 Medication Dose Route Frequency - potassium chloride ER 20 mEq tab(s) (K-DUR, KLOR-CON) 20 mEq ORAL ONCE - amLODIPine 5 mg tab(s) (NORVASC) 5 mg ORAL DAILY - carBAMazepine XR 200 mg tab(s) (TEGretol XR) 200 mg ORAL BID - insulin lispro injection (rapid acting) (HumaLOG) SUBCUTANEOUS w MEALS AND HS - nicotine 21 mg/24 hr 1 Patch (NICODERM) 1 Patch TRANSDERMAL DAILY And - nicotine -- REMOVE patch OTHER DAILY And - nicotine - verify patch OTHER q 8 H - [COMPLETED] clopidogrel 300 mg tab(s) (PLAVIX) 300 mg ORAL ONCE - clopidogrel 75 mg tab(s) (PLAVIX) 75 mg ORAL DAILY - polyethylene glycol 3350 17 g packet (MIRALAX, GLYCOLAX) 17 g ORAL DAILY PRN - docusate sodium 100 mg cap(s) (COLACE) 100 mg ORAL BID - budesonide 0.25 mg/2 mL 0.25 mg (PULMICORT) 0.25 mg INHALATION BID And - ipratropium-albuterol 3 mL nebulizer solution (DUONEB) 3 mL INHALATION QID - heparin iv infusion (LOW DOSE ACS/NOMOGRAM) 25,000 units in NaCl 0.45% 250 mL PREMIX 0-3,000 Units/hr INTRAVENOUS CONTINUOUS And - heparin RATE CHANGE bolus 1,000-4,000 Units for subtherapeutic aptt results 1,000-4,000 Units INTRAVENOUS PRN - [] heparin nomogram - NO INITIAL BOLUS OTHER ONCE (heparin bolus) - ceFAZolin iv piggyback 2 g in D5W (iso-osmotic) 100 mL (ANCEF) 2 g INTRAVENOUS [employer]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 - NaCl 0.9% iv infusion 100 mL/hr INTRAVENOUS CONTINUOUS - fentaNYL 50 mcg/mL 25 mcg injection (SUBLIMAZE) 25 mcg INTRAVENOUS q 4 H PRN - oxyCODONE IR 5-10 mg tab(s) (ROXICODONE) 5-10 mg ORAL q 4 H PRN - [COMPLETED] ceFAZolin iv piggyback 2 g in D5W (iso-osmotic) 100 mL (ANCEF) 2 g INTRAVENOUS Pre-Op Once - NaCl 0.9% 3-5 mL 3-5 mL INTRAVENOUS q 12 H - ondansetron 4 mg tab(s) (ZOFRAN) 4 mg ORAL q 6 H PRN Or - ondansetron (PF) 4 mg injection (ZOFRAN) 4 mg INTRAVENOUS q 6 H PRN - bisacodyl 10 mg suppository (DULCOLAX) 10 mg RECTAL DAILY PRN - magnesium hydroxide 400 mg/5 mL 30 mL (MOM) 30 mL ORAL/FEEDING TUBE DAILY PRN - [] oxyCODONE IR 5-10 mg tab(s) (ROXICODONE) 5-10 mg ORAL q 4 H PRN - acetaminophen 1,000 mg tab(s) (TYLENOL) 1,000 mg ORAL q 6 H - ipratropium-albuterol 3 mL nebulizer solution (DUONEB) 3 mL INHALATION q 4 H PRN - hyoscyamine sublingual 0.25 mg tab(s) (LEVSIN SL) 0.25 mg SUBLINGUAL AC and HS - sertraline 100 mg tab(s) (ZOLOFT) 100 mg ORAL DAILY - mirtazapine 15 mg (REMERON) 15 mg ORAL AT BEDTIME - gabapentin 300 mg cap(s) (NEURONTIN) 300 mg ORAL q 12 H - pantoprazole DR 40 mg tab(s) (PROTONIX) 40 mg ORAL DAILY (6 AM) - dextrose 40 % 15 g 15 g ORAL PRN Or - glucagon 1 mg injection (GLUCAGEN) 1 mg INTRAMUSCULAR PRN Or - dextrose 50% in water 25 mL syringe 12.5 g INTRAVENOUS PRN - metoprolol tartrate (short acting) 12.5 mg tab(s) (LOPRESSOR) 12.5 mg ORAL q 12 H - [COMPLETED] ceFAZolin iv piggyback 2 g in D5W (iso-osmotic) 100 mL (ANCEF) 2 g INTRAVENOUS q 12 HR - [COMPLETED] magnesium sulfate in water 2 g in sterile water 50 ml 2 g INTRAVENOUS ONCE Outpatient Medications as of 10/10/2019 Medication Sig - aspirin 81 mg chewable tablet Take 81 mg by mouth once daily. - albuterol HFA (VENTOLIN HFA) 90 mcg/actuation inhaler Inhale 2 Puffs as instructed every 4 hours as needed. - tamsulosin ER (FLOMAX) 0.4 mg cap Take 1 capsule by mouth once daily. - metoprolol tartrate, short acting, (LOPRESSOR) 25 mg tablet Take 1 tablet by mouth twice daily. - perflutren lipid microspheres (DEFINITY) 1.1 mg/mL injection (to be provided with echo procedure) Inject 1.3 mL intravenously as directed. Administration Instructions: If no IV access, insert saline lock prior to administering contrast. Discontinue saline lock post exam. If patient has central line or IVAD, may access for administration according to line specific nursing protocol. Once exam is complete, flush line and de-access per line specific nursing protocol. Diluted IV Bolus: Dilute 1.3 ml of Definity with 8.7 ml of preservative-free saline. - amLODIPine (NORVASC) 5 mg tablet Take 1 tablet by mouth once daily. - fluticasone-umeclidin- vilanter (TRELEGY ELLIPTA) 100-62.5-25 mcg dsdv Inhale 1 Puff as instructed once daily. - nicotine (NICODERM CQ) 21 mg/24 hr Apply 1 Patch as directed every 24 hours. APPLY ONE(1) PATCH DAILY. - nicotine (NICODERM CQ) 14 mg/24 hr Apply 1 Patch as directed every 24 hours. - nicotine (NICODERM CQ) 7 mg/24 hr Apply 1 Patch as directed every 24 hours. - senna (SENNA CONCENTRATE) 8.6 mg tab Take 1 tablet by mouth daily at bedtime. - warfarin (COUMADIN) 1 mg tablet Take 1 tablet by mouth once daily. - finasteride (PROSCAR) 5 mg tablet Take 1 tablet by mouth once daily. - >Nebulizer For Home Nebulizer for home use. Diagnosis: Pulmonary emphysema, unspecified emphysema type (HCC) [J43.9] - warfarin (COUMADIN) 10 mg tablet 7.5mg and 10mg all other days (Patient taking differently: 7.5mg Tuesdays and and 10mg all other days ) - pantoprazole DR (PROTONIX) 40 mg tablet Take 1 tablet by mouth once daily. - mirtazapine (REMERON) 15 mg tablet Take 1 tablet by mouth daily at bedtime. - hydrOXYzine HCl (ATARAX) 50 mg tablet Take 1 tablet by mouth three times daily as needed. - sertraline (ZOLOFT) 100 mg tablet Take 1 tablet by mouth once daily. - dicyclomine (BENTYL) 20 mg tablet Take 1 tablet by mouth three times daily with meals. - peg 3350-Electrolytes (GOLYTELY) 236-22.74-6.74 -5.86 gram suspension Please take this Golytely solution in its entirety on Monday in preparation for your capsule endoscopy on Monday. Do not eat any solid foods, instead drink clear liquids until you have clear bowel movements. - COMPOUNDED PRESCRIPTION Aerosol supplies Dx:J44.1 NPI#[id number] - ipratropium-albuterol (DUONEB) 0.5 mg-3 mg(2.5 mg base)/3 mL nebu Inhale 3 mL as instructed every 6 hours as needed (wheezing). Use over 5-15minutes per nebulizer. - COMPOUNDED PRESCRIPTION NEBULIZER FOR HOME USE. DX: Emphysema, COPD - warfarin (COUMADIN) 5 mg tablet Take 1 tablet by mouth once daily. - Back Brace misc Rigid back brace for compression Fx L3 support. - HYDROcodone-acetaminop hen (NORCO) 5-325 mg per tablet Take 1 tablet by mouth as directed. - lidocaine 4 % gel Apply 1 Patch as directed every 24 hours. - Blood Pressure Monitor kit Check bp 2 to 3x daily I have interviewed and examined the patient. I have reviewed the medical record and/or the pre-anesthesia evaluation, pertinent labs, and test results. This contains updated information obtained within 48 hours of Surgery/Procedure. SIGNATURE: Joey Sequeira MD PATIENT NAME: Pedro Pablo Sierra DATE: October 10, 2019 TIME: 8:21 AM CSN: [id number] Normal [facility] APTTon 10-10-2019 aPTT Coag (Bld) [Time] 25.4 s Normal 23.0-32.4 [facility] Comment on above: Result Comment: Unfr actionated Heparin Therapeutic Ranges: Standard Heparin Nomogram: 53 to 78 seconds (anti-Xa level of 0.3 to 0.7 U/ml) Low Dose/ACS Nomogram: 49 to 67 seconds (anti-Xa level of 0.2 to 0.5 U/ml) Stroke Treatment Nomogram: 49 to 67 seconds (anti-Xa level of 0.2 to 0.5 U/ml) Note: The APTT therapeutic range has been determined for the current lot of laboratory APTT reagent in use throughout the [facility]. Performed By: #### C BCDIF, PTT, FIBCT, PT ####[facility] [place], [place] [phone] aPTT Coag (Bld) [Time] 126.3 s High 23.0-32.4 [facility] Comment on above: Result Comment: Unfr actionated Heparin Therapeutic Ranges: Standard Heparin Nomogram: 53 to 78 seconds (anti-Xa level of 0.3 to 0.7 U/ml) Low Dose/ACS Nomogram: 49 to 67 seconds (anti-Xa level of 0.2 to 0.5 U/ml) Stroke Treatment Nomogram: 49 to 67 seconds (anti-Xa level of 0.2 to 0.5 U/ml) Note: The APTT therapeutic range has been determined for the current lot of laboratory APTT reagent in use throughout the [facility]. Called to and read back by: Landry Quintana RN [facility]10[facility]19 Royce Mccormick Performed By: #### C BCDIF, BMP, MG1, PHOS, PTT, PT ####[facility] [place], [place] [phone] aPTT Coag (Bld) [Time] 44.1 s High 23.0-32.4 [facility] Comment on above: Result Comment: Unfr actionated Heparin Therapeutic Ranges: Standard Heparin Nomogram: 53 to 78 seconds (anti-Xa level of 0.3 to 0.7 U/ml) Low Dose/ACS Nomogram: 49 to 67 seconds (anti-Xa level of 0.2 to 0.5 U/ml) Stroke Treatment Nomogram: 49 to 67 seconds (anti-Xa level of 0.2 to 0.5 U/ml) Note: The APTT therapeutic range has been determined for the current lot of laboratory APTT reagent in use throughout the [facility]. Performed By: #### P TT ####[place] [phone] Basic Metabolic Panlon 10-09 Anion gap [Moles/Vol] 11 mmol/L Normal 9-18 [facility] Comment on above: Performed By: #### C BCDIF, BMP, MG1, PHOS, PTT, PT ####[place] [phone] Calcium [Mass/Vol] 8.0 mg/dL Low 8.5-10.5 [facility] Comment on above: Performed By: #### C BCDIF, BMP, MG1, PHOS, PTT, PT ####[place] [phone] Chloride [Moles/Vol] 103 mmol/L Normal 98-110 [facility] Comment on above: Performed By: #### C BCDIF, BMP, MG1, PHOS, PTT, PT ####[place] [phone] CO2 [Moles/Vol] 24 mmol/L Normal 23-32 [facility] Comment on above: Performed By: #### C BCDIF, BMP, MG1, PHOS, PTT, PT ####[place] [phone] Creatinine [Mass/Vol] 0.68 mg/dL Low 0.70-1.40 [facility] Comment on above: Performed By: #### C BCDIF, BMP, MG1, PHOS, PTT, PT ####[place] [phone] eGFR- Amer. >60 Normal >60 [facility] Comment on above: Performed By: #### C BCDIF, BMP, MG1, PHOS, PTT, PT ####[place] [phone] GFR/1.73 sq M predicted among non-blacks MDRD (S/P/Bld) [Vol rate/Area] mL/min/{1.73_m2} Normal >60 [facility] Comment on above: Performed By: #### C BCDIF, BMP, MG1, PHOS, PTT, PT ####[place] [phone] Glucose [Mass/Vol] 127 mg/dL High 65-100 [facility] Comment on above: Performed By: #### C BCDIF, BMP, MG1, PHOS, PTT, PT ####[place] [phone] Potassium [Moles/Vol] 4.3 mmol/L Normal 3.5-5.0 [facility] Comment on above: Performed By: #### C BCDIF, BMP, MG1, PHOS, PTT, PT ####[place] [phone] Sodium [Moles/Vol] 138 mmol/L Normal 135-146 [facility] Comment on above: Performed By: #### C BCDIF, BMP, MG1, PHOS, PTT, PT ####[place] [phone] Urea nitrogen [Mass/Vol] 9 mg/dL Low 10-25 [facility] Comment on above: Performed By: #### C BCDIF, BMP, MG1, PHOS, PTT, PT ####[place] [phone] Anion gap [Moles/Vol] 8 mmol/L Low 9-18 [facility] Comment on above: Performed By: #### C BC, BMP, MG1, PHOS ####[place] [phone] Calcium [Mass/Vol] 7.9 mg/dL Low 8.5-10.5 [facility] Comment on above: Performed By: #### C BC, BMP, MG1, PHOS ####[place] [phone] Chloride [Moles/Vol] 101 mmol/L Normal 98-110 [facility] Comment on above: Performed By: #### C BC, BMP, MG1, PHOS ####[place] [phone] CO2 [Moles/Vol] 27 mmol/L Normal 23-32 [facility] Comment on above: Performed By: #### C BC, BMP, MG1, PHOS ####[place] [phone] Creatinine [Mass/Vol] 0.69 mg/dL Low 0.70-1.40 [facility] Comment on above: Performed By: #### C BC, BMP, MG1, PHOS ####[place] [phone] eGFR- Amer. >60 Normal >60 [facility] Comment on above: Performed By: #### C BC, BMP, MG1, PHOS ####[place] [phone] GFR/1.73 sq M predicted among non-blacks MDRD (S/P/Bld) [Vol rate/Area] mL/min/{1.73_m2} Normal >60 [facility] Comment on above: Performed By: #### C BC, BMP, MG1, PHOS ####[place] [phone] Glucose [Mass/Vol] 107 mg/dL High 65-100 [facility] Comment on above: Performed By: #### C BC, BMP, MG1, PHOS ####[place] [phone] Potassium [Moles/Vol] 3.8 mmol/L Normal 3.5-5.0 [facility] Comment on above: Performed By: #### C BC, BMP, MG1, PHOS ####[place] [phone] Sodium [Moles/Vol] 136 mmol/L Normal 135-146 [facility] Comment on above: Performed By: #### C BC, BMP, MG1, PHOS ####[place] [phone] Urea nitrogen [Mass/Vol] 11 mg/dL Normal 10-25 [facility] Comment on above: Performed By: #### C BC, BMP, MG1, PHOS ####[place] [phone] CASE MANAGEMon 10-10-2019 CASE MANAGEM HNO ID: [id number] Author: Bri Hutchison) ОЛЕГ Swann Service: Case Management Author Type: Registered Nurse Type: Care Mgt Progress Note Filed: 10/10/2019 4:26 PM Note Text: CARE MANAGEMENT PROGRESS NOTE SERVICE DATE: 10/10/2019 SERVICE TIME: 4:23 PM LOS: 2 days Needs Prior to Discharge: To Be Determined Pt s/p femoral endarterectomy with washout, unable to to fully engage in decision making at this time, recovering from anesthesia. D/c planning [facility] vs [facility]. CM to follow in am. SIGNATURE: Bri Swann RN,BSN PATIENT NAME: Pedro Pablo Sierra DATE: October 10, 2019 TIME: 4:23 PM PAGER/CONTACT #: [phone] Normal [facility] CBCon 10-10-2019 Erythrocyte distribution width (RBC) [Ratio] 16.0 % High 11.5-15.0 [facility] Comment on above: Performed By: #### C BC, BMP, MG1, PHOS ####[place] [phone] Hematocrit (Bld) [Volume fraction] 23.2 % Low 39.0-51.0 [facility] Comment on above: Performed By: #### C BC, BMP, MG1, PHOS ####[place] [phone] Hemoglobin (Bld) [Mass/Vol] 7.5 g/dL Low 13.0-17.0 [facility] Comment on above: Performed By: #### C BC, BMP, MG1, PHOS ####[place] [phone] MCH (RBC) [Entitic mass] 30.1 pG Normal 26.0-34.0 [facility] Comment on above: Performed By: #### C BC, BMP, MG1, PHOS ####[place] [phone] MCHC (RBC) [Mass/Vol] 32.3 g/dL Normal 30.5-36.0 [facility] Comment on above: Performed By: #### C BC, BMP, MG1, PHOS ####[place] [phone] MCV (RBC) [Entitic vol] 93.2 fL Normal 80.0-100.0 [facility] Comment on above: Performed By: #### C BC, BMP, MG1, PHOS ####[place] [phone] Platelet mean volume (Bld) [Entitic vol] 9.8 fL Normal 9.0-12.7 [facility] Comment on above: Performed By: #### C BC, BMP, MG1, PHOS ####[place] [phone] Platelets (Bld) [#/Vol] 180 10*3/uL Normal 150-400 [facility] Comment on above: Performed By: #### C BC, BMP, MG1, PHOS ####[place] [phone] RBC (Bld) [#/Vol] 2.49 10*6/uL Low 4.20-6.00 [facility] Comment on above: Performed By: #### C BC, BMP, MG1, PHOS ####[place] [phone] WBC (Bld) [#/Vol] 6.64 10*3/uL Normal 3.70-11.00 [facility] Comment on above: Performed By: #### C BC, BMP, MG1, PHOS ####[place] [phone] CBC and Differentialon 10-09 Abs Baso 0.03 k/uL Normal <0.11 [facility] Comment on above: Performed By: #### C BCDIF, PTT, FIBCT, PT ####[place] [phone] Abs Phelps 0.69 k/uL Normal <0.87 [facility] Comment on above: Performed By: #### C BCDIF, PTT, FIBCT, PT ####[place] [phone] Abs Neut 5.56 k/uL Normal 1.45-7.50 [facility] Comment on above: Performed By: #### C BCDIF, PTT, FIBCT, PT ####[place] [phone] Basophils/100 WBC (Bld) 0.4 % Normal [facility] Comment on above: Performed By: #### C BCDIF, PTT, FIBCT, PT ####[place] [phone] Eosinophils (Bld) [#/Vol] 10*3/uL Normal <0.46 [facility] Comment on above: Performed By: #### C BCDIF, PTT, FIBCT, PT ####[place] [phone] Eosinophils/100 WBC (Bld) 0.3 % Normal [facility] Comment on above: Performed By: #### C BCDIF, PTT, FIBCT, PT ####[place] [phone] Erythrocyte distribution width (RBC) [Ratio] 16.9 % High 11.5-15.0 [facility] Comment on above: Performed By: #### C BCDIF, PTT, FIBCT, PT ####[place] [address] Hematocrit (Bld) [Volume fraction] 21.7 % Low 39.0-51.0 [facility] Comment on above: Performed By: #### C BCDIF, PTT, FIBCT, PT ####[place] [address] Hemoglobin (Bld) [Mass/Vol] 7.1 g/dL Low 13.0-17.0 [facility] Comment on above: Performed By: #### C BCDIF, PTT, FIBCT, PT ####[phone] Lymphocytes (Bld) [#/Vol] 1.03 10*3/uL Normal 1.00-4.00 [facility] Comment on above: Performed By: #### C BCDIF, PTT, FIBCT, PT ####[place] [phone] Lymphocytes/100 WBC (Bld) 14.1 % Normal [facility] Comment on above: Performed By: #### C BCDIF, PTT, FIBCT, PT ####[place] [phone] MCH (RBC) [Entitic mass] 29.5 pG Normal 26.0-34.0 [facility] Comment on above: Performed By: #### C BCDIF, PTT, FIBCT, PT ####[address] [phone] MCHC (RBC) [Mass/Vol] 32.7 g/dL Normal 30.5-36.0 [facility] Comment on above: Performed By: #### C BCDIF, PTT, FIBCT, PT ####[place] [phone] MCV (RBC) [Entitic vol] 90.0 fL Normal 80.0-100.0 [facility] Comment on above: Performed By: #### C BCDIF, PTT, FIBCT, PT ####[place] [phone] Monocytes/100 WBC (Bld) 9.4 % Normal [facility] Comment on above: Performed By: #### C BCDIF, PTT, FIBCT, PT ####[place] [phone] Neutrophils/100 WBC (Bld) 75.8 % Normal [facility] Comment on above: Performed By: #### C BCDIF, PTT, FIBCT, PT ####[place] [phone] Platelet mean volume (Bld) [Entitic vol] 10.0 fL Normal 9.0-12.7 [facility] Comment on above: Performed By: #### C BCDIF, PTT, FIBCT, PT ####[place] [phone] Platelets (Bld) [#/Vol] 167 10*3/uL Normal 150-400 [facility] Comment on above: Performed By: #### C BCDIF, PTT, FIBCT, PT ####[place] [phone] RBC (Bld) [#/Vol] 2.41 10*6/uL Low 4.20-6.00 [facility] Comment on above: Performed By: #### C BCDIF, PTT, FIBCT, PT ####[place] [phone] WBC (Bld) [#/Vol] 7.33 10*3/uL Normal 3.70-11.00 [facility] Comment on above: Performed By: #### C BCDIF, PTT, FIBCT, PT ####[place] [address] Abs Baso 0.04 k/uL Normal <0.11 [facility] Comment on above: Performed By: #### C BCDIF, BMP, MG1, PHOS, PTT, PT ####[place] [address] Abs Phelps 0.56 k/uL Normal <0.87 [facility] Comment on above: Performed By: #### C BCDIF, BMP, MG1, PHOS, PTT, PT ####[place] [address] Abs Neut 5.40 k/uL Normal 1.45-7.50 [facility] Comment on above: Performed By: #### C BCDIF, BMP, MG1, PHOS, PTT, PT ####[address] Basophils/100 WBC (Bld) 0.6 % Normal [facility] Comment on above: Performed By: #### C BCDIF, BMP, MG1, PHOS, PTT, PT ####[place] [address] DTYPE Auto Diff Normal [facility] Comment on above: Performed By: #### C BCDIF, PTT, FIBCT, PT ####[place] [address] Performed By: #### C BCDIF, BMP, MG1, PHOS, PTT, PT ####[address] Eosinophils (Bld) [#/Vol] 0.06 10*3/uL Normal <0.46 [facility] Comment on above: Performed By: #### C BCDIF, BMP, MG1, PHOS, PTT, PT ####[place] [address] Eosinophils/100 WBC (Bld) 0.8 % Normal [facility] Comment on above: Performed By: #### C BCDIF, BMP, MG1, PHOS, PTT, PT ####[place] [address] Erythrocyte distribution width (RBC) [Ratio] 16.6 % High 11.5-15.0 [facility] Comment on above: Performed By: #### C BCDIF, BMP, MG1, PHOS, PTT, PT ####[place] [address] Hematocrit (Bld) [Volume fraction] 24.9 % Low 39.0-51.0 [facility] Comment on above: Performed By: #### C BCDIF, BMP, MG1, PHOS, PTT, PT ####[place] [address] Hemoglobin (Bld) [Mass/Vol] 8.3 g/dL Low 13.0-17.0 [facility] Comment on above: Performed By: #### C BCDIF, BMP, MG1, PHOS, PTT, PT ####[place] [id number] Lymphocytes (Bld) [#/Vol] 1.07 10*3/uL Normal 1.00-4.00 [facility] Comment on above: Performed By: #### C BCDIF, BMP, MG1, PHOS, PTT, PT ####[place] [phone] Lymphocytes/100 WBC (Bld) 15.0 % Normal [facility] Comment on above: Performed By: #### C BCDIF, BMP, MG1, PHOS, PTT, PT ####[place] [phone] MCH (RBC) [Entitic mass] 30.3 pG Normal 26.0-34.0 [facility] Comment on above: Performed By: #### C BCDIF, BMP, MG1, PHOS, PTT, PT ####[place] [phone] MCHC (RBC) [Mass/Vol] 33.3 g/dL Normal 30.5-36.0 [facility] Comment on above: Performed By: #### C BCDIF, BMP, MG1, PHOS, PTT, PT ####[place] [phone] MCV (RBC) [Entitic vol] 90.9 fL Normal 80.0-100.0 [facility] Comment on above: Performed By: #### C BCDIF, BMP, MG1, PHOS, PTT, PT ####[place] [phone] Monocytes/100 WBC (Bld) 7.9 % Normal [facility] Comment on above: Performed By: #### C BCDIF, BMP, MG1, PHOS, PTT, PT ####[place] [phone] Neutrophils/100 WBC (Bld) 75.7 % Normal [facility] Comment on above: Performed By: #### C BCDIF, BMP, MG1, PHOS, PTT, PT ####[place] [phone] Platelet mean volume (Bld) [Entitic vol] 9.8 fL Normal 9.0-12.7 [facility] Comment on above: Performed By: #### C BCDIF, BMP, MG1, PHOS, PTT, PT ####[place] [phone] Platelets (Bld) [#/Vol] 173 10*3/uL Normal 150-400 [facility] Comment on above: Performed By: #### C BCDIF, BMP, MG1, PHOS, PTT, PT ####[place] [id number] [place], [place] [phone] RBC (Bld) [#/Vol] 2.74 10*6/uL Low 4.20-6.00 [facility] Comment on above: Performed By: #### C BCDIF, BMP, MG1, PHOS, PTT, PT ####[place] [id number] [place] [phone] WBC (Bld) [#/Vol] 7.13 10*3/uL Normal 3.70-11.00 [facility] Comment on above: Performed By: #### C BCDIF, BMP, MG1, PHOS, PTT, PT ####[place] [phone] [place] [phone] Fibrinogenon 10-10-2019 Fibrinogen 410 mg/dL High 200-400 [facility] Comment on above: Performed By: #### C BCDIF, PTT, FIBCT, PT ####[place] [phone] HISTORY PHYSICALon 0 HISTORY PHYSICAL HNO ID: [id number] Author: Ryan May MD Service: Vascular Surgery Author Type: Physician Type: HANDP Filed: 10/10/2019 9:03 AM Note Text: As a result of the 09/03/19 order by [facility] Director Libby Harris M.D. to cancel non-essential surgeries that would use PPE, unless special criteria are met, I have reviewed the clinical record for this patient and have determined that the scheduled procedure meets the criteria to go forward because there is a threat of permanent dysfunction of an extremity or organ system. 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 Possible hematoma. Plan to reexplore, evacuate hematoma, possible ileo-femoral bypass vs fem-fem bypass. Jermaine May MD Normal [facility] Hematocriton 10-10-2019 Hematocrit (Bld) [Volume fraction] 23.1 % Low 39.0-51.0 [facility] Comment on above: Performed By: #### H CT, HGB ####[place] [id number] [place] [id number] Hemoglobinon 10-10-2019 Hemoglobin (Bld) [Mass/Vol] 7.4 g/dL Low 13.0-17.0 [facility] Comment on above: Performed By: #### H CT, HGB ####[place] [address] Magnesiumon 10-10-2019 Magnesium [Mass/Vol] 1.8 mg/dL Normal 1.7-2.6 [facility] Comment on above: Performed By: #### C BCDIF, BMP, MG1, PHOS, PTT, PT ####[place] [address] Magnesium [Mass/Vol] 2.0 mg/dL Normal 1.7-2.6 [facility] Comment on above: Performed By: #### C BC, BMP, MG1, PHOS ####[place] [address] NURSING PROGon 10-10-2019 NURSING PROG HNO ID: [id number] Author: Yeimi (Rn) ОЛЕГ Wong Service: ? Author Type: Registered Nurse Type: Nursing Progress Note Filed: 10/11/2019 7:38 AM Note Text: Nursing Progress Note Patient Name: Pedro Pablo Sierra Patient Location: [id number]/[facility] __ Daily Note: 1899 Received bedside report from Josse AHUJA. 1999 Assessment complete. Please see all flowsheets. 2099 2 units of blood ordered per Dr. Johnson. 2199 Started 1 unit of PRBC per order. 2229 Dr. Johnson and chargeback analyst Daphney rounding on pt. SBAR given. New orders received. 2214 Spoke [id number] with Dr. Johnson. Okay to go by cuff pressure. 2344 Started 1 unit of PRBC per order. 0000 Reassessment complete. Please see all flowsheets. 0130 Dr. Johnson at bedside. SBAR given. Per Dr. Johnson, draw AM labs at 0330. 0400 Reassessment complete. Please see all flowsheets. 0715 Bedside report given to Briana AHUJA. [facility] NURSING PROG HNO ID: [id number] Author: Fran NessRn) ОЛЕГ Quintana Service: Critical Care Author Type: Registered Nurse Type: Nursing Progress Note Filed: 10/10/2019 7:55 PM Note Text: Nursing Progress Note Patient Name: Pedro Pablo Sierra Patient Location: [id number]/-[facility]-0 245- __ Daily Note: 0800: Full assessment complete. 0810: Talking with Misael, who would like amlodipine held this AM, okay to give metoprolol, and okayed by vascular surgery resident to give plavix. 0830: OR team at bedside. SBAR report. Plan to give cefazolin and PRBCs in OR. [phone]: On the phone with Joseph (pt's ex-) who is concerned because she was not updated on when pt went to surgery and is not getting updates like before via text. Joseph is also stating that she signed papers at [facility] recently transfering Health Care POA into her name. Last AD is from 2013 with Michelle (daughter) as POA. 1042: Page to case management [place] 245 in OR Mr. Sierra [phone]: Ania (pt's ex-) states that she submitted papers recently while at [facility] that she is healthcare POA. Last AD I see is 2013 that has Michelle Richmond (pt's daughter) as POA. -Josse AHUJA [phone]: pT disoriented to self and time emerging from anesthesia. 1620: Pt calling director environmental light stating he is bleeding. Upon assessment, blood seeping gown and chucks pad under pt. Pressure applied to L groin sight. Page to Dr. Jeter (rn surgical). 162: Dr. Jeter at bedside, assuming full control of spontaneous Left groin bleed. 1625: Bleeding controled, page to vascular team. 1630: Vascular team at bedside to assess pt. Pulses assessed, stable. Dressing reinforced with pressure tape per vascular team. Plan to repeat labs at 8pm. Will wait to start heparin after PM labs. Dr. Jeter aware of elivated ptt. 190: Bedside report given to oncoming RN. This note was completed by: Fran Quintana RN [facility] NURSING PROG HNO ID: [id number] Author: Chrystal (Rn) ОЛЕГ Jacob Service: Critical Care Author Type: Registered Nurse Type: Nursing Progress Note Filed: 10/10/2019 6:32 AM Note Text: Nursing Progress Note Patient Name: Pedro Pablo Sierra Patient Location: [id number]/[facility] __ Daily Note: 190: Bedside handoff received from ОЛЕГ Patel. Patient resting in bed, Heparin gtt verified. Pulses dual checked 2000: Full assessment completed. See doc flowsheets. 0000: Reassessment completed. Pulses still present via dopplar. 0400: Reassessment completed. See doc flowsheets. 0545: Patient pulled out IV. Reduced access. Dr. Moody aware. IV fluids stopped. This note was completed by: Chrystal Jacob RN [facility] OPERATIVE NOon 10-10-2019 OPERATIVE NO HNO ID: [id number] Author: Ryan May MD Service: Vascular Surgery Author Type: Physician Type: Operative Report Filed: 10/10/2019 1:51 PM Note Text: OPERATIVE/PROCEDURE REPORT LOG ID: [id number] Surgery/Procedure Date: 10/10/2019 Incision/Procedure Start Time:9:52 AM Incision Close/Procedure End Time: 13:49 Surgeon(s)/Procedurali st(s) and National Van Owner Operator(s): Surgeon(s) and Role: * Ryan May MD - Primary * Elly (Azalea) Stephanie - Resident - Assisting No Additional Staff Anesthesia: General Procedure(s): Left EIA to TELEVISION REPORTER bypass with 7mm ringed PTFE end to end proximally to the previously placed bovine patch end to side distally. Completion angiogram Retrograde open RADHA angioplasty with 8 x 80 mustang balloon. Open thrombectomy L iliac artery by leg incision. Operative Indications: 69 year old male with occlusion of the left lower extremity repair and iliac stents done two days prior. Procedure details: A huddle was performed with the surgery, anesthesia, and nursing teams to confirm patient name, MRN, and procedure. The patient was brought into the operating room and placed supine. The patient underwent induction of general anesthesia and endotracheal intubation. A clark catheter was placed under sterile conditions. The patient was prepped and draped from the umbilicus down the entire left and the contralateral groin. A vertical incision was made in the left groin. The external iliac artery, common femoral artery, profunda and sfa were mobilized and controlled with vessel loops. Careful meticulous dissection of the EIA was performed with dense scar to separate it from the EIV. Heparin was given and ACT was checked every 30 minutes and heparin was then re-dosed accordingly. A longitudinal incision was made in the prior patch and thrombus was encountered with no inflow. The EIA was transected high under the inguinal ligament with the expectation that the recurrent disease was the issue in that location. A previously placed stent was removed that was crushed and thrombosed. The Palomo catheter was passed proximally with reestablishment of inflow. The 7mm ringed PTFE was spatulated and anastomosed end to end to the EIA and end to side to the patch. The proximal TELEVISION REPORTER was clamped with four orange clips. Flow was reestablished in the usual fashion. Completion angiogram revealed proximal iliac stenosis that I felt may have been flow behind one of the stent-grafts placed two days prior. The micropuncture was exchanged for a 7 Fr sheath and a wire and catheter were used to cannulated the stent graft. It was treated with angioplasty with excellent result and no residual stenosis. The arteriotomy was closed and hemostasis achieved following completion angiogram revealing FRANCESCA and peroneal runoff as before. The deep layers were closed with 2-0 and 3-0 running Vicryl suture, and the skin was closed with nylon mattress sutures. The skin was dressed with gauze. The patient was taken to the ICU in stable condition. Pre-Op/Pre-Procedure Diagnosis: LLE thrombosis Post-Op/Post-Procedure Diagnosis: same Estimated Blood Loss: 200 mls Specimens: extracted stent Implantable Devices: 7 mm ringed PTFE Drains: None Complications: None I/primary surgeon/proceduralist performed the procedure with assistance. SIGNATURE: Jermaine May MD PATIENT NAME: Pedro Pablo Sierra DATE: 10/10/2019 TIME: 1:40 PM PAGER/CONTACT #: [facility] PROGRESSon 10-10-2019 PROGRESS HNO ID: [id number] Author: Elly Brown Service: Vascular Surgery Author Type: Resident Type: Progress Notes Filed: 10/10/2019 9:04 AM Note Text: [facility]ULAR SURGERY POSTOP PROGRESS NOTE Service Date: 10/10/2019Admit Date: 10/08/2019Service Time: 7:51 AM LOS: 2 day(s) Primary Service: Vascular Surgery Vascular Physician: Ryan May MD Interval Events/Issues: No acute events overnight. Pain about the same as yesterday in his LLE. Subjective Current Facility-Administered Medications Medication Dose Route Frequency - NaCl 0.9% 3-5 mL 3-5 mL INTRAVENOUS q 12 H - ondansetron 4 mg tab(s) (ZOFRAN) 4 mg ORAL q 6 H PRN Or - ondansetron (PF) 4 mg injection (ZOFRAN) 4 mg INTRAVENOUS q 6 H PRN - bisacodyl 10 mg suppository (DULCOLAX) 10 mg RECTAL DAILY PRN - magnesium hydroxide 400 mg/5 mL 30 mL (MOM) 30 mL ORAL/FEEDING TUBE DAILY PRN - acetaminophen 1,000 mg tab(s) (TYLENOL) 1,000 mg ORAL q 6 H - ipratropium-albuterol 3 mL nebulizer solution (DUONEB) 3 mL INHALATION q 4 H PRN - hyoscyamine sublingual 0.25 mg tab(s) (LEVSIN SL) 0.25 mg SUBLINGUAL AC and HS - sertraline 100 mg tab(s) (ZOLOFT) 100 mg ORAL DAILY - mirtazapine 15 mg (REMERON) 15 mg ORAL AT BEDTIME - gabapentin 300 mg cap(s) (NEURONTIN) 300 mg ORAL q 12 H - pantoprazole DR 40 mg tab(s) (PROTONIX) 40 mg ORAL DAILY (6 AM) - dextrose 40 % 15 g 15 g ORAL PRN Or - glucagon 1 mg injection (GLUCAGEN) 1 mg INTRAMUSCULAR PRN Or - dextrose 50% in water 25 mL syringe 12.5 g INTRAVENOUS PRN - metoprolol tartrate (short acting) 12.5 mg tab(s) (LOPRESSOR) 12.5 mg ORAL q 12 H - amLODIPine 5 mg tab(s) (NORVASC) 5 mg ORAL DAILY - carBAMazepine XR 200 mg tab(s) (TEGretol XR) 200 mg ORAL BID - insulin lispro injection (rapid acting) (HumaLOG) SUBCUTANEOUS w MEALS AND HS - nicotine 21 mg/24 hr 1 Patch (NICODERM) 1 Patch TRANSDERMAL DAILY And - nicotine -- REMOVE patch OTHER DAILY And - nicotine - verify patch OTHER q 8 H - clopidogrel 75 mg tab(s) (PLAVIX) 75 mg ORAL DAILY - polyethylene glycol 3350 17 g packet (MIRALAX, GLYCOLAX) 17 g ORAL DAILY PRN - docusate sodium 100 mg cap(s) (COLACE) 100 mg ORAL BID - budesonide 0.25 mg/2 mL 0.25 mg (PULMICORT) 0.25 mg INHALATION BID And - ipratropium-albuterol 3 mL nebulizer solution (DUONEB) 3 mL INHALATION QID - heparin iv infusion (LOW DOSE ACS/NOMOGRAM) 25,000 units in NaCl 0.45% 250 mL PREMIX 0-3,000 Units/hr INTRAVENOUS CONTINUOUS And - heparin RATE CHANGE bolus 1,000-4,000 Units for subtherapeutic aptt results 1,000-4,000 Units INTRAVENOUS PRN - ceFAZolin iv piggyback 2 g in D5W (iso-osmotic) 100 mL (ANCEF) 2 g INTRAVENOUS Brass And Wind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 - NaCl 0.9% iv infusion 100 mL/hr INTRAVENOUS CONTINUOUS - fentaNYL 50 mcg/mL 25 mcg injection (SUBLIMAZE) 25 mcg INTRAVENOUS q 4 H PRN - oxyCODONE IR 5-10 mg tab(s) (ROXICODONE) 5-10 mg ORAL q 4 H PRN - potassium chloride iv piggyback 20 mEq/100 mL 20 mEq INTRAVENOUS ONCE Medication and Non-Pharmacologic VTE Prophylaxis/Anticoagul ants Anticoagulant AND Antiplatelet Medications (From admission, onward) Start Dose Route Frequency Ordered Stop 10/10/19 0900 clopidogrel 75 mg tab(s) (PLAVIX) 75 mg ORAL DAILY 10/09/19 1043 -- 10/09/19 1630 heparin iv infusion (LOW DOSE ACS/NOMOGRAM) 25,000 units in NaCl 0.45% 250 mL PREMIX (Heparin Infusion + Rate Change Bolus) 0-30 mL/hr 0-3,000 Units/hr INTRAVENOUS CONTINUOUS 10/09/19 1604 -- 10/08/19 1645 pneumatic compression stockings (nc,oh) VTE Prophylaxis: on hep gtt ALLERGIES No Known Allergies Objective PHYSICAL EXAM: Patient Vitals for the past 24 hrs: BP Temp Temp src Pulse Resp SpO2 10/10/19 0735 ? ? ? 69 23 ? 10/10/19 0727 ? ? ? 69 22 96 % 10/10/19 0500 (!) 121/49 ? ? 70 24 95 % 10/10/19 0400 113/55 36.7 ?C (98.1 ?F) Oral 72 20 96 % 10/10/19 0300 125/101 ? ? 71 21 98 % 10/10/19 0200 126/53 ? ? 67 23 95 % 10/10/19 0100 127/58 ? ? 74 23 92 % 10/10/19 0000 141/58 37 ?C (98.6 ?F) Oral 73 ? 96 % 10/09/19 2300 136/62 ? ? 76 ? 95 % 10/09/19 2200 157/66 ? ? 81 ? 96 % 10/09/19 2100 146/57 ? ? 84 ? 95 % 10/09/19 2000 142/56 37 ?C (98.6 ?F) Oral 82 ? 95 % 10/09/19 1917 ? ? ? 93 20 93 % 10/09/19 1902 ? ? ? 95 20 95 % 10/09/19 1900 135/55 ? ? 95 ? 94 % 10/09/19 1800 146/65 ? ? 83 26 93 % 10/09/19 1700 140/57 ? ? 79 17 92 % 10/09/19 1643 ? 90 % 10/09/19 1640 ? ? ? 72 21 91 % 10/09/19 1636 ? ? ? 69 22 97 % 10/09/19 1600 131/54 36.6 ?C (97.9 ?F) Oral 81 24 94 % 10/09/19 1500 123/51 ? ? 70 15 95 % 10/09/19 1401 ? ? ? 71 25 92 % 10/09/19 1400 (!) 128/46 ? ? 71 22 (!) 87 % 10/09/19 1356 ? ? ? 72 23 ? 10/09/19 1300 138/50 ? ? 74 14 95 % 10/09/19 1200 135/76 ? ? 75 10 97 % 10/09/19 1117 ? 36.3 ?C (97.3 ?F) Temporal ? ? ? 10/09/19 1100 85/73 ? ? 72 17 93 % 10/09/19 1000 (!) 116/49 ? ? 71 17 95 % 10/09/19 0900 155/75 ? ? 75 19 95 % 10/09/19 0800 125/65 ? ? 96 23 94 % Intake/Output Summary (Last 24 hours) at 10/10/2019 0750 Last data filed at 10/10/2019 0500 Gross per 24 hour Intake 1134 ml Output 1220 ml Net -86 ml CONSTITUTIONAL: No acute distress NEUROLOGIC/PSYCHIATRIC : Oriented to time, place AND person HEENT: No lesions LUNGS: unlabored HEART: Regular rate AND rhythm ABDOMEN: Soft INTEGUMENTARY: Wound - No SURGICAL SITES: Groin - left; small hematoma MUSCULOSKELETAL: No deformities Pulses/Signals: Femoral Right: Palpable +1 - Left: Biphasic Signal Dorsalis Pedis Right: Triphasic Signal - Left: Biphasic Signal DATA: Laboratory: Recent Labs 10/10/19 0704 10/10/19 0559 10/09/19 1312 10/09/19 0400 WBC -- 6.64 7.29 7.77 HB 7.4* 7.5* 9.3* 9.3* HCT 23.1* 23.2* 28.9* 28.4* PLT -- 180 200 220 Recent Labs 10/10/19 0559 10/09/19 0400 10/08/19 1800 NA 136 136 137 K 3.8 4.5 4.1 BUN 11 15 12 CREAT 0.69* 0.81 0.71 GLUC 107* 129* 160* MG 2.0 2.1 1.5* Recent Labs 10/10/19 0559 10/09/19 2328 10/09/19 1625 10/09/19 0400 10/08/19 1800 APTT 109.7* 44.1* 23.9 20.8* 53.2* INR -- -- 1.0 1.0 1.0 Assessment/Plan Impression: Pedro Pablo Sierra is a 69 year old White male who is POD# 2 s/p redo L FEA, L iliac stenting, initially admitted for rest pain. Plan: OR today for L groin hematoma evacuation, possible thrombectomy, possible fem/fem. 2U director environmental to OR Ok to cont. AC Ancef director environmental to OR HOSPITALIZATION(S) Indication for admission/procedure: BLE pain Important/Relevant PMH/PSH: s/p left femoral endarterectomy with patch, US guided access RCFA, L profundaplasty, RUFUS recanalization AND stenting, CRISPIN stenting on 10/23, UC, CAD previous [place], DM, HTN, HLD, COPD Overall Course: 63 year old male with acute onset of BLE pain. Taken to OR for initiation of thrombolysis thru LCIA/TORITO Procedure/Surgeries: 1. Aortogram with bilateral ileofemoral runoff via left brachial artery 2. Left leg angiogram, 3rd order 3. Placement of lysis catheter from distal aorta to left SFA, 20cm treatment zone [facility] 07/02/2014 Thrombectomy Airway Difficulty: NA OR Course: Uncomplicated UNIT (summarize and transfer summary into hospital course prior to transfer of care) Unit Course / Today's Impression: Currently Managed Major Problems (list): Date: 07/03/14 Aortoiliac thrombosis s/p lysis catheter placement and subsequent thrombectomy Hypertension Anticoagulation management Numbness LUE Issues to communicate at signout: RNF Duplex of L arm pending No problems updated. SIGNATURE: Elly Brown MD PATIENT NAME: Pedro Pablo Sierra DATE: October 10, 2019 TIME: 7:50 AM PAGER/CONTACT #: [phone] [facility] PROGRESS HNO ID: [id number] Author: Rashawn Huntley Service: Critical Care Author Type: Anesthesiologist Type: Progress Notes Filed: 10/10/2019 7:59 AM Note Text: SICU PROGRESS NOTE SERVICE DATE: 10/10/2019 SERVICE TIME: 6:40 AM POD #: 1 Subjective Interval events (last 24 hours) / Pertinent ROS: Afebrile. HD stable. Complains of pain and swelling of left groin. NPO for OR. Objective VITAL SIGNS: BP (!) 121/49 Pulse 70 Temp 36.7 ?C (98.1 ?F) (Oral) Resp 24 Ht 172.7 cm (5' 8) Wt 78.6 kg (173 lb 4.5 oz) SpO2 95% BMI 26.35 kg/m? PHYSICAL EXAM: General Appearance: Well appearing, In no acute distress Neuro: Awake, Follows commands, Moving all extremities and drowsy but arousable Pulmonary: Clear to auscultation. Breath Sounds Equal: Yes Cardiovascular: Regular rhythm Abdomen: Soft and Nontender Extremities: Edema- No Peripheral pulses- Left Femoral not palpable, DP and PT biphasic Right Femoral palpable DP and PT biphasic Wounds/Drsgs- Yes Surgical incisions c/d/i. Presence of Pressure Ulcer No Surgical incisions: clean, dry and intact PATIENT LINES ASSESSED: Central Line: No central lines Arterial Line: Right radial d/c'd yesterday. CURRENT MEDICATIONS: Medications reviewed. Please refer to [facility] for list of inpatient medications. Current Facility-Administered Medications Medication Dose Route Frequency Provider Last Rate Last Dose - amLODIPine 5 mg tab(s) (NORVASC) 5 mg ORAL DAILY Misael (Res) MD Steffany 5 mg at 10/09/19 0755 - carBAMazepine XR 200 mg tab(s) (TEGretol XR) 200 mg ORAL BID Rashawn Huntley 200 mg at 10/09/19 2124 - insulin lispro injection (rapid acting) (HumaLOG) SUBCUTANEOUS w MEALS AND HS Juliana (Pa) Akshat - nicotine 21 mg/24 hr 1 Patch (NICODERM) 1 Patch TRANSDERMAL DAILY Juliana (Pa) Akshat 1 Patch at 10/09/19 1124 And - nicotine -- REMOVE patch OTHER DAILY Juliana (Pa) Akshat And - nicotine - verify patch OTHER q 8 H Juliana (Pa) Akshat - clopidogrel 75 mg tab(s) (PLAVIX) 75 mg ORAL DAILY Roman Richey) Heinly - polyethylene glycol 3350 17 g packet (MIRALAX, GLYCOLAX) 17 g ORAL DAILY PRN Roman Richey) Socratesly - docusate sodium 100 mg cap(s) (COLACE) 100 mg ORAL BID Roman Richey) Heinly 100 mg at 10/09/192123 - budesonide 0.25 mg/2 mL 0.25 mg (PULMICORT) 0.25 mg INHALATION BID Juliana Price) Akshat 0.25 mg at 10/09/191901 And - ipratropium-albuterol 3 mL nebulizer solution (DUONEB) 3 mL INHALATION QID Juliana (Yariel) Akshat 3 mL at 10/09/191901 - heparin iv infusion (LOW DOSE ACS/NOMOGRAM) 25,000 units in NaCl 0.45% 250 mL PREMIX 0-3,000 Units/hr INTRAVENOUS CONTINUOUS Misael (Binu Jeter MD 11 mL/hr at 10/10/19 001 1,100 Units/hr at 10/10/1911 And - heparin RATE CHANGE bolus 1,000-4,000 Units for subtherapeutic aptt results 1,000-4,000 Units INTRAVENOUS PRN Misael (Binu Jeter MD 2,400 Units at 10/10/19 001 - ceFAZolin iv piggyback 2 g in D5W (iso-osmotic) 100 mL (ANCEF) 2 g INTRAVENOUS Brass And Wind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 Juliana Price) Akshat - NaCl 0.9% iv infusion 100 mL/hr INTRAVENOUS CONTINUOUS Misael Jeter MD Stopped at 10/10/19 0500 - fentaNYL 50 mcg/mL 25 mcg injection (SUBLIMAZE) 25 mcg INTRAVENOUS q 4 H PRN Misael Jeter MD - oxyCODONE IR 5-10 mg tab(s) (ROXICODONE) 5-10 mg ORAL q 4 H PRN Misael Jeter MD 5 mg at 10/09/192126 - NaCl 0.9% 3-5 mL 3-5 mL INTRAVENOUS q 12 H Rashawn Huntley 5 mL at 10/09/19 2100 - ondansetron 4 mg tab(s) (ZOFRAN) 4 mg ORAL q 6 H PRN Rashawn Huntley Or - ondansetron (PF) 4 mg injection (ZOFRAN) 4 mg INTRAVENOUS q 6 H PRN Rashawn Huntley 4 mg at 10/09/19 0830 - bisacodyl 10 mg suppository (DULCOLAX) 10 mg RECTAL DAILY PRN Rashawn Huntley - magnesium hydroxide 400 mg/5 mL 30 mL (MOM) 30 mL ORAL/FEEDING TUBE DAILY PRN Rashawn Huntley - acetaminophen 1,000 mg tab(s) (TYLENOL) 1,000 mg ORAL q 6 H Rashawn Medrick 1,000 mg at 10/10/19 0536 - ipratropium-albuterol 3 mL nebulizer solution (DUONEB) 3 mL INHALATION q 4 H PRN Rashawn Huntley - hyoscyamine sublingual 0.25 mg tab(s) (LEVSIN SL) 0.25 mg SUBLINGUAL AC and HS Rashawn Medpalma 0.25 mg at 10/10/19 0536 - sertraline 100 mg tab(s) (ZOLOFT) 100 mg ORAL DAILY Rashawn Huntley 100 mg at 10/09/19 0755 - mirtazapine 15 mg (REMERON) 15 mg ORAL AT BEDTIME Rashawn Huntley 15 mg at 10/09/192123 - gabapentin 300 mg cap(s) (NEURONTIN) 300 mg ORAL q 12 H Rashawn Huntley 300 mg at 10/09/192123 - pantoprazole DR 40 mg tab(s) (PROTONIX) 40 mg ORAL DAILY (6 AM) Rashawn Huntley 40 mg at 10/10/19 0536 - dextrose 40 % 15 g 15 g ORAL PRN Rashawn Huntley Or - glucagon 1 mg injection (GLUCAGEN) 1 mg INTRAMUSCULAR PRN Rashawn Huntley Or - dextrose 50% in water 25 mL syringe 12.5 g INTRAVENOUS PRN Rashawn Huntley - metoprolol tartrate (short acting) 12.5 mg tab(s) (LOPRESSOR) 12.5 mg ORAL q 12 H Rashawn Huntley 12.5 mg at 10/09/192123 PERTINENT CULTURES: Cultures were reviewed. Pertinent cultures from this hospitalization are listed below. Plese refer to [facility] for a full listing of cultures obtained during this hospitalization. ? N/A DIAGNOSTIC TESTS: The following diagnostic tests/findings were reviewed: ? Most recent labs and imaging results. MOST RECENT CXR FINDINGS: Increased vascular markings, likely fluid overload. OPERATIVE PROCEDURE(S): Date of surgery: 10/08/19 Procedure: Left common TELEVISION REPORTER endarterectomy with bovine path Left profundoplasty Left iliac stenting X4 (I-Cast X2, Jessica X2) Multiple angiograms with angioplasty Surgeon: Dr. 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 May on 10/08/19. She is admitted to SICU post-operatively for neurovascular checks and close hemodynamic monitoring. Developed L TELEVISION REPORTER occlusion POD2 and going back to OR for left groin exploration. ? ? REASON FOR ICU ADMISSION: Neurovascular checks q2h and hemodynamic monitoring ? Neuro: -Pain regimen: tylenol, PRN oxycodone, Fentanyl -Resume gabapentin, carbamazepine, Remeron, Zoloft -Hold other home meds ? CV: CAD, CHF, HTN, HLD, -Continue Norvasc -Lopressor 12.5mg BID ? Pulm: PJ, COPD -Duonebs q4h -Encourage OOB and IS -CXR showing volume overload? Renal: -Monitor I/Os -Replete lytes -IVF ? GI: -Diet: NPO for OR. -Protonix for GERD -Bowel regimen ? Heme: -Monitor for signs of bleeding. -Trend H/H. Drop likely dilutional. Repeat HANDH. -Hold Coumadin -On Heparin for reocclusion per Vascular surgery. -OR for left femoral exploration -DVT ppx: SCDs ? Fluid/Electrolyte/Nutr ition: -mIVF ? ID: -Monitor for signs of infection -Periop Abx: Ancef for 24hr ? Endo: DM2 -SSI 1 -Hold home meds ? -Encourage OOB. -PT/OT evaluation ? Lines/Tubes/Prophylaxi s/Disposition: -Lines: n/a -Tubes: n/a -Prophylaxis: SCDs -Dispo: SICU Medication and Non-Pharmacologic VTE Prophylaxis/Anticoagul ants Anticoagulant AND Antiplatelet Medications (From admission, onward) Start Dose Route Frequency Ordered Stop 10/10/19 0900 clopidogrel 75 mg tab(s) (PLAVIX) 75 mg ORAL DAILY 10/09/19 1043 -- 10/09/19 1630 heparin iv infusion (LOW DOSE ACS/NOMOGRAM) 25,000 units in NaCl 0.45% 250 mL PREMIX (Heparin Infusion + Rate Change Bolus) 0-30 mL/hr 0-3,000 Units/hr INTRAVENOUS CONTINUOUS 10/09/19 1604 -- 10/08/19 1700 activity - mobilize patient ([place]) 10/08/19 1645 pneumatic compression stockings ([place] VTE Prophylaxis: VTE prophylaxis appropriate To be seen and discussed on rounds with SICU staff: Dr. Huntley ICU Checklist --------- --- VTE Prophylaxis: SIGNATURE: Misael Jeter MD PATIENT NAME: Pedro Pablo Sierra DATE: October 10, 2019 TIME: 6:40 AM PAGER/CONTACT #: [phone] [facility] STAFF PHYSICIAN NOTE OF PERSONAL INVOLVEMENT IN CARE ? I have reviewed the progress note?obtained and documented by the resident?and I personally participated in the echevarria components. I have discussed the case and management of the patient's care. The following comments revise or confirm relevant echevarria components of their note. LLE ischemia PVD Acute post-op pain Lupus anticoagulant PJ COPD Current smoker Essential HTN GERD ? Procedure/Surgeon 10/08/19 S/P L TELEVISION REPORTER endarterectomy with bovine path, profundoplasty and iliac stenting 10/10/19 Plan to return to the OR for Femoral endarterectomy Pain is modestly controlled --Multimodal pain control HD's reassuring Decreased signals and loss of femoral pulse noted yesterday during vascular exam Doppler-able AT No signs of respiratory compromise, 2L NC --Broncho-dilators ordered NPO for OR today Hold on clark cath until surgery Afebrile and without leukocytosis Noted history of lupus anticoagulant, this was discussed with vascular team Possible need for AC post procedure On heparin infusion and plavix in preparation for surgery Adequate glycemic control with SSI Will evaluate following OR today Rashawn Huntley DO 7:56 AM October 10, 2019 Normal [facility] PTT,Anticoag Therapyon 10-09 aPTT Coag (Bld) [Time] 109.7 s High 23.0-32.4 Fa [facility] Comment on above: Result Comment: Unfr actionated Heparin Therapeutic Ranges: Standard Heparin Nomogram: 53 to 78 seconds (anti-Xa level of 0.3 to 0.7 U/ml) Low Dose/ACS Nomogram: 49 to 67 seconds (anti-Xa level of 0.2 to 0.5 U/ml) Stroke Treatment Nomogram: 49 to 67 seconds (anti-Xa level of 0.2 to 0.5 U/ml) Note: The APTT therapeutic range has been determined for the current lot of laboratory APTT reagent in use throughout the [facility]. Called to and read back by: Landry Quintana RN [facility] [address] 10/10/19 Noemí HOLLIS Performed By: #### P TTAC ####[address] [phone] Phosphoruson 10-10-2019 Phosphate [Mass/Vol] 3.0 mg/dL Normal 2.5-4.5 [facility] Comment on above: Performed By: #### C BCDIF, BMP, MG1, PHOS, PTT, PT ####[address] [phone] Phosphate [Mass/Vol] 2.1 mg/dL Low 2.5-4.5 [facility] Comment on above: Performed By: #### C BC, BMP, MG1, PHOS ####[address] [phone] Protimeon 10-10-2019 PT Coag (PPP) [Time] 10.5 s Normal 9.7-13.0 [facility] Comment on above: Performed By: #### C BCDIF, PTT, FIBCT, PT ####[place] [phone] PT Coag (PPP) [Time] 1.0 s Normal 0.9-1.3 [facility] Comment on above: Result Comment: Teri min K Antagonist (VKA) Therapeutic Range: INR 2 to 3 (Target INR of 2.5) Note: For patients treated with VKA drugs, such as warfarin, the [place] [employer] 2012 Guideline recommends [...] WARNER, et al. Chest 2012, 141:7S-47S Gio RA, et al. JAC 2017, 70: 252-289 Performed By: #### C BCDIF, PTT, FIBCT, PT ####[place] [phone] Performed By: #### C BCDIF, BMP, MG1, PHOS, PTT, PT ####[place] [phone] PT Coag (PPP) [Time] 10.9 s Normal 9.7-13.0 [facility] Comment on above: Performed By: #### C BCDIF, BMP, MG1, PHOS, PTT, PT ####[place] [phone] SURGICAL PATHOLOGYon 020 SURGICAL PATHOLOGY Specimen originated from [facility] Specimen #: [id number] Submitting Physician: RYAN MAY FINAL DIAGNOSIS Left femoral stent, removal Metal stent with thrombus. CDT/violetta 10/15/2019 COMMENT Movat stain was performed to assess the tissue architecture with adequate control. Movat stain shows blood cell-rich thrombus. There is no evidence of vascular wall. Parul Coley M.D. (Electronic Signature) _ SPECIMEN SUBMITTED A: LEFT FEMORAL STENT CLINICAL DATA PERIPHERAL VASCULAR DISEASE; LEFT FEMORAL ENDARTERECTOMY GROSS DESCRIPTION A. Received in formalin labeled left femoral stent is a metal wire stent with red-brown hemorrhagic material measuring 2.7 x 1.0 x 1.0 cm. No vessel is seen. Apprenticeship Representative sections are submitted in formalin in one cassette. KVNevaeh/joseph 10/14/2019 [place] [address] Date of Report: 10/15/2019 Date of Procedure: 10/10/2019 Date of Receipt: 10/11/2019 Submitted by: RYAN MAY Location: [facility] Diagnostic interpretation performed at [place] [address]. [place] Number: [id number] [facility] THERAPY NTon 10-10-2019 THERAPY NT HNO ID: [id number] Author: Shakir Freeman (Pt) Mode Service: Physical Therapy Author Type: Physical Therapist Type: Therapy (PT/OT/Speech/Resp) Filed: 10/10/2019 1:18 PM Note Text: .PHYSICAL THERAPY MISSED VISIT SERVICE DATE: 10/10/2019 SERVICE TIME: 1317 to 1317 ROOM: [place] ( OPERATING ROOM) Attempted Treatment. Patient not seen due to Surgery. SIGNATURE: Shakir G Mode, PT PATIENT NAME: Pedro Pablo Sierra DATE: October 10, 2019 TIME: 1:18 PM [facility] THERAPY NT HNO ID: [id number] Author: Caitlin Thomas Service: Occupational Therapy Author Type: Occupational Therapist Type: Therapy (PT/OT/Speech/Resp) Filed: 10/10/2019 7:37 AM Note Text: OCCUPATIONAL THERAPY MISSED VISIT SERVICE DATE: 10/10/2019 SERVICE TIME: 735 to 735 ROOM: [place] [address] Attempted Treatment. Patient not seen due to Surgery. Pt going back to OR. OT tx on hold today. Will continue to monitor. SIGNATURE: Caitlin Thomas OTR/L PATIENT NAME: Pedro Pablo Sierra DATE: October 10, 2019 TIME: 7:36 AM [facility] XR CHEST 1V FRONTAL PORTon 0 10-10-2019 XR CHEST 1V FRONTAL PORT * * *Final Repo rt* * * DATE OF EXAM: Oct 10 2019 6:34AM FVX [id number] - XR CHEST 1V FRONTAL PORT / PROCEDURE REASON: Post-operative / post-procedure assessment, asymptomatic * * * * Physician Interpretation * * * * EXAMINATION: CHEST RADIOGRAPH (PORTABLE SINGLE VIEW AP) Exam Date/Time: 10/10/2019 6:34 AM CLINICAL HISTORY: Post-operative / post-procedure assessment, asymptomatic MQ: XCPR_5 Comparison: 08/22/2019 RESULT: The heart is normal in size. Thoracic aorta is tortuous, containing atherosclerotic calcifications. Mild blunting of both costophrenic angles. Bibasilar airspace opacities, left greater than right, which may relate to atelectasis. There is no obvious pneumothorax or pulmonary vascular redistribution. There is scoliosis, osteopenia, and multilevel degenerative change seen within the thoracic spine. IMPRESSION: Mild blunting of both costophrenic angles. Bibasilar airspace opacities, which may relate to atelectasis. Live Source Operator: SHANELL Transcribe Date/Time: Oct 10 2019 6:59A Dictated by : DULCE BARRON MD This examination was interpreted and the report reviewed and electronically signed by: DULCE BARRON MD on Oct 10 2019 7:00AM EST [id number] [facility] ALLIED HEALTHon 10-09-2019 ALLIED HEALTH HNO ID: [id number] Author: Markell Alonzo (Chaplain) Service: Spiritual Care Author Type: Type: Allied Health Filed: 10/09/2019 5:11 PM Note Text: SPIRITUAL CARE PROGRESS NOTE SERVICE DATE: 10/09/2019 SERVICE TIME: 1702 While engaging in spiritual care phone rounds on the SICU unit, I contacted patient's?daughter Michelle through leaving a voicemail on his phone. ?I provided spiritual presence and bucolical support through?empathetic care and?through?offer of?prayers.?I shared with patient's?daughter?kiley t if further support was needed that contact could be with patient's RN who could page the on-call mobility engineer. ? To contact the Spiritual Care Department: Please call [phone]?or Page the On-Call Placement Coordinator at pager [phone].??? Thank you for the opportunity to be of service. SIGNATURE: Chaplain Terry PATIENT NAME: Pedro Pablo Sierra DATE: October 09, 2019 TIME: 5:09 PM PAGER/CONTACT #: [phone] [facility] APTTon 10-09-2019 aPTT Coag (Bld) [Time] 20.8 s Low 23.0-32.4 [facility] Comment on above: Result Comment: Unfr actionated Heparin Therapeutic Ranges: Standard Heparin Nomogram: 53 to 78 seconds (anti-Xa level of 0.3 to 0.7 U/ml) Low Dose/ACS Nomogram: 49 to 67 seconds (anti-Xa level of 0.2 to 0.5 U/ml) Stroke Treatment Nomogram: 49 to 67 seconds (anti-Xa level of 0.2 to 0.5 U/ml) Note: The APTT therapeutic range has been determined for the current lot of laboratory APTT reagent in use throughout the [facility]. Performed By: #### C BC, BMP, MG1, PHOS, PTT, PT ####[facility] [place], [place] [phone] Basic Metabolic Panlon 10-08 Anion gap [Moles/Vol] 9 mmol/L Normal 9-18 [facility] Comment on above: Performed By: #### C BC, BMP, MG1, PHOS, PTT, PT ####[place] [phone] Calcium [Mass/Vol] 8.1 mg/dL Low 8.5-10.5 [facility] Comment on above: Performed By: #### C BC, BMP, MG1, PHOS, PTT, PT ####[place] [phone] Chloride [Moles/Vol] 101 mmol/L Normal 98-110 [facility] Comment on above: Performed By: #### C BC, BMP, MG1, PHOS, PTT, PT ####[place] [phone] CO2 [Moles/Vol] 26 mmol/L Normal 23-32 [facility] Comment on above: Performed By: #### C BC, BMP, MG1, PHOS, PTT, PT ####[place] [phone] Creatinine [Mass/Vol] 0.81 mg/dL Normal 0.70-1.40 [facility] Comment on above: Performed By: #### C BC, BMP, MG1, PHOS, PTT, PT ####[place] [phone] eGFR- Amer. >60 Normal >60 [facility] Comment on above: Performed By: #### C BC, BMP, MG1, PHOS, PTT, PT ####[place] [phone] GFR/1.73 sq M predicted among non-blacks MDRD (S/P/Bld) [Vol rate/Area] mL/min/{1.73_m2} Normal >60 [facility] Comment on above: Performed By: #### C BC, BMP, MG1, PHOS, PTT, PT ####[place] [phone] Glucose [Mass/Vol] 129 mg/dL High 65-100 [facility] Comment on above: Performed By: #### C BC, BMP, MG1, PHOS, PTT, PT ####[place] [phone] Potassium [Moles/Vol] 4.5 mmol/L Normal 3.5-5.0 [facility] Comment on above: Performed By: #### C BC, BMP, MG1, PHOS, PTT, PT ####[place] [phone] [place] [phone] Sodium [Moles/Vol] 136 mmol/L Normal 135-146 [facility] Comment on above: Performed By: #### C BC, BMP, MG1, PHOS, PTT, PT ####[place] [phone] [place] [phone] Urea nitrogen [Mass/Vol] 15 mg/dL Normal 10-25 [facility] Comment on above: Performed By: #### C BC, BMP, MG1, PHOS, PTT, PT ####[place] [phone] [place] [phone] CASE MANAGEMon 10-09-2019 CASE MANAGEM HNO ID: [id number] Author: Carly Hutchison) ОЛЕГ Man Service: Case Management Author Type: Registered Nurse Type: Care Mgt Progress Note Filed: 10/09/2019 1:48 PM Note Text: CARE MANAGEMENT PROGRESS NOTE SERVICE DATE: 10/09/2019 SERVICE TIME: 1345 LOS: 1 day Needs Prior to Discharge: To Be Determined Spoke to pt waiver coordinator , she states she is working on getting pt a caregiver, states pt gets 14 meals a week, he has an emergency response button and a nurse sees him once a week. Pt nurse is from [facility] ). Carmen would like AVS faxed at d/c to [phone] SIGNATURE: Carly Man RN,BSN PATIENT NAME: Pedro Pablo Sierra DATE: October 09, 2019 TIME: 1:44 PM PAGER/CONTACT #: [phone] [facility] CASE MGT INIT [place] 2019 CASE MGT INIT JOSE HNO ID: [id number] Author: Carly (Rn) ОЛЕГ Man Service: Case Management Author Type: Registered Nurse Type: Care Mgt Initial Assessment Filed: 10/09/2019 12:41 PM Note Text: CARE MANAGEMENT: ASSESSMENT AND DISCHARGE PLAN SERVICE DATE: October 09, 2019 SERVICE TIME: 1240 PRIMARY CARE PHYSICIAN: DAIJA MORTON MD ADMISSION STATUS: Inpatient Needs Prior to Discharge: To Be Determined MEDICAL: [facility] MEDICARE Patient/Apprenticeship Representative Stated Goals: To improve my functional status;To have reduction in symptoms;To return home to life as it was Health Insurance: Medicare;Medicaid Health Issues Impacting Discharge Plan: Newly diagnosed;Chronic Newly Diagnosed: s/p Redo left TELEVISION REPORTER endarterectomy, left profundoplasty, left iliac stenting Chronic: HTN, HLD, COPD, 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 Last discharge within 30 days: No Advance Directive: Current Advance Directive: Health Care Power of Cube Machine Tender;Living Will In Chart: Yes Up To Date and Valid: Yes Health LiteracyHow often do you need to have someone help you when you read instructions, pamphlets, or other written material from your doctor or pharmacy? : 2 - Rarely How confident are you filling out medical forms by yourself?: 3 - Somewhat If Patient scores > 3 on either question, the following interventions were put into place:: Use of plain language and active listening with Patient and family;Use concrete and specific phrases, avoid medical jargon;Teach back methods employed to ensure comprehension;Gave Patient the opportunity to ask questions;Sit with Patient;Forms of communication used with patient and family Baseline Mental Status Prior to this Illness what was the patient's Baseline Mental Status?: Alert AND Oriented Prior to this illness, has anyone described the patient having any of the following behaviors?: Not Applicable Relationship of the informant to the patient:: Self Functional Status: Independent Does Patient Currently Receive Any Community Services or Home Care?: Meals on Wheels;Other: See Comment(waiver services) Equipment Prior to Admission: Walker;Oxygen;Cane SOCIAL: Living Arrangements: Home Lives With: Alone Financial Resources: RetiredPrimary Contact: Extended Emergency Contact Information Primary Emergency Contact: Michelle Richmond Mobile Relation: Daughter Secondary Emergency Contact: Joseph Burrell Mobile Relation: Relative Supportive Patient Contact:: Yes Contact Resources: Family Family Name/Phone: Michelle Richmond (BLAZE) Social Needs Food insecurity Worry: Sometimes true Inability: Never true Resources Needed: No Social Needs Financial resource strain: Not hard at all Social Needs Transportation needs Medical: No Non-medical: No Caregiver AssessmentCaregiver is ready, willing and able to meet the patient's needs as recommended by the inter-professional team:: (TBD) Does the patient have an acute stroke diagnosis, or has the patient had a stroke during this admission?: No Patient's transition needs and plan for meeting these needs: Needs TBD Patient's perception of need for this admission: Medication Adherance I am convinced of the importance of my prescription medication: 0 - Agree Completely I worry that my prescription medication will do more harm than good to me : 0 - Disagree Completely I feel financially burdened by my aty-up-jctdng expenses for my prescription medication:: 0 - Disagree Completely Risk Score: 0 Patient is categorized as: Low risk < 2 Are you interested in bedside delivery of your medications? No Is Patient Psychosocially Complex?: No ASSESSMENT AND PLAN: Medical Needs: Medical Needs: Two or more chronic diseases;Fall risk or frequent falls Psychosocial Needs: Psychosocial Needs: None FREEDOM OF CHOICE EXPLAINED: [place] of Choice Given: No Reason Not Given: No placements necessary POTENTIAL TRANSITION PLANS To Be Determined 69 yo male admitted for vascular procedure, vascular surgery following. 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 Pt states B/B is on the same floor, pt has home o2 with portability and receives MOW. Pt states he has waiver services but does not know what services he receives. States he was supposed to get aide services but no one has come to his home. Pt has Waiver Coordinator Carmen ) VM left and requested return call to determine what services pt has. PT/OT eval pending to determine needs at d/c. SIGNATURE: Carly Man RN,BSN PATIENT NAME: Pedro Pablo Sierra DATE: October 09, 2019 TIME: 12:26 PM PAGER/CONTACT #: [phone] Normal [facility] CBCon 10-09-2019 Erythrocyte distribution width (RBC) [Ratio] 15.7 % High 11.5-15.0 [facility] Comment on above: Performed By: #### C BC, BMP, MG1, PHOS, PTT, PT ####[place] [phone] Hematocrit (Bld) [Volume fraction] 28.4 % Low 39.0-51.0 [facility] Comment on above: Performed By: #### C BC, BMP, MG1, PHOS, PTT, PT ####[place] [phone] MCH (RBC) [Entitic mass] 30.2 pG Normal 26.0-34.0 [facility] Comment on above: Performed By: #### C BC, BMP, MG1, PHOS, PTT, PT ####[place] [phone] MCHC (RBC) [Mass/Vol] 32.7 g/dL Normal 30.5-36.0 [facility] Comment on above: Performed By: #### C BC, BMP, MG1, PHOS, PTT, PT ####[place] [phone] MCV (RBC) [Entitic vol] 92.2 fL Normal 80.0-100.0 [facility] Comment on above: Performed By: #### C BC, BMP, MG1, PHOS, PTT, PT ####[place] [phone] Platelet mean volume (Bld) [Entitic vol] 9.9 fL Normal 9.0-12.7 [facility] Comment on above: Performed By: #### C BC, BMP, MG1, PHOS, PTT, PT ####[place] [phone] Platelets (Bld) [#/Vol] 220 10*3/uL Normal 150-400 [facility] Comment on above: Performed By: #### C BC, BMP, MG1, PHOS, PTT, PT ####[place] [phone] RBC (Bld) [#/Vol] 3.08 10*6/uL Low 4.20-6.00 [facility] Comment on above: Performed By: #### C BC, BMP, MG1, PHOS, PTT, PT ####[place] [phone] WBC (Bld) [#/Vol] 7.77 10*3/uL Normal 3.70-11.00 [facility] Comment on above: Performed By: #### C BC, BMP, MG1, PHOS, PTT, PT ####[place] [phone] CBC and Differentialon 10-08 Abs Baso <0.03 Normal <0.11 [facility] Comment on above: Performed By: #### C BCDIF ####[place] [phone] Abs Phelps 0.50 k/uL Normal <0.87 [facility] Comment on above: Performed By: #### C BCDIF ####[place] [phone] Abs Neut 5.57 k/uL Normal 1.45-7.50 [facility] Comment on above: Performed By: #### C BCDIF ####[place] [phone] Basophils/100 WBC (Bld) 0.3 % Normal F [facility] Comment on above: Performed By: #### C BCDIF ####[place] [phone] DTYPE Auto Diff Normal [facility] Comment on above: Performed By: #### C BCDIF ####[place] [phone] Eosinophils (Bld) [#/Vol] 10*3/uL Normal <0.46 [facility] Comment on above: Performed By: #### C BCDIF ####[place] [phone] Eosinophils/100 WBC (Bld) 0.1 % Normal [facility] Comment on above: Performed By: #### C BCDIF ####[place] [phone] Erythrocyte distribution width (RBC) [Ratio] 16.0 % High 11.5-15.0 [facility] Comment on above: Performed By: #### C BCDIF ####[place] [phone] Hematocrit (Bld) [Volume fraction] 28.9 % Low 39.0-51.0 [facility] Comment on above: Performed By: #### C BCDIF ####[place] [phone] Hemoglobin (Bld) [Mass/Vol] 9.3 g/dL Low 13.0-17.0 [facility] Comment on above: Performed By: #### C BCDIF ####[place] [phone] Performed By: #### C BC, BMP, MG1, PHOS, PTT, PT ####[place] [phone] Lymphocytes (Bld) [#/Vol] 1.19 10*3/uL Normal 1.00-4.00 [facility] Comment on above: Performed By: #### C BCDIF ####[place] [phone] Lymphocytes/100 WBC (Bld) 16.3 % Normal [facility] Comment on above: Performed By: #### C BCDIF ####[place] [phone] MCH (RBC) [Entitic mass] 30.0 pG Normal 26.0-34.0 [facility] Comment on above: Performed By: #### C BCDIF ####[place] [phone] MCHC (RBC) [Mass/Vol] 32.2 g/dL Normal 30.5-36.0 [facility] Comment on above: Performed By: #### C BCDIF ####[place] [phone] MCV (RBC) [Entitic vol] 93.2 fL Normal 80.0-100.0 [facility] Comment on above: Performed By: #### C BCDIF ####[place] [phone] Monocytes/100 WBC (Bld) 6.9 % Normal [facility] Comment on above: Performed By: #### C BCDIF ####[place] [phone] Neutrophils/100 WBC (Bld) 76.4 % Normal [facility] Comment on above: Performed By: #### C BCDIF ####[place] [phone] Platelet mean volume (Bld) [Entitic vol] 9.8 fL Normal 9.0-12.7 [facility] Comment on above: Performed By: #### C BCDIF ####[address] [phone] Platelets (Bld) [#/Vol] 200 10*3/uL Normal 150-400 [facility] Comment on above: Performed By: #### C BCDIF ####[address] [phone] RBC (Bld) [#/Vol] 3.10 10*6/uL Low 4.20-6.00 [facility] Comment on above: Performed By: #### C BCDIF ####[address] [phone] WBC (Bld) [#/Vol] 7.29 10*3/uL Normal 3.70-11.00 [facility] Comment on above: Performed By: #### C BCDIF ####[address] [phone] MEDICAL EMERon 10-09-2019 MEDICAL LEYLA HNO ID: [id number] Author: Misael Jeter MD Service: Critical Care Author Type: Resident Type: Chg in Clinical Condition Filed: 10/09/2019 5:15 PM Note Text: Patient was evaluated by Dr. Mcclain and vascular surgery team this afternoon at 1PM and there was concern for decreased arterial flow to left lower extremity as the pulses were weaker than previously. An arterial duplex was ordered. Arterial duplex suggestive of left common femoral artery occlusion. US LEG ARTERIAL PERIPHER UNL VAS LAB: 10/09/19 3:52 PM IMPRESSION LEFT SIDE Common femoral artery mid: occluded . Superficial femoral artery mid: patent . Superficial femoral artery distal: patent . Profunda femoral artery origin: patent . Popliteal artery, Anterior tibial artery and Posterior tibial artery : patent?. Peroneal artery proximal: . Not visualized. Peroneal artery mid: . Not visualized. ? Given image finding, Vascular surgery team wants to start anticoagulation and plan to take the patient back to OR tomorrow. -Heparin gtt low dose ACS -NPO after midnight -OR tomorrow. The plan was discussed with Dr. Huntley. I also spoke with the patient and his emergency contact, Joseph and updated them about the plan. Misael Jeter MD General Surgery Resident PGY2 Pager: [phone] 10/09/2019 5:11 PM Normal [facility] Magnesiumon 10-09-2019 Magnesium [Mass/Vol] 2.1 mg/dL Normal 1.7-2.6 [facility] Comment on above: Result Comment: Revi ewed Performed By: #### C BC, BMP, MG1, PHOS, PTT, PT ####[place] [id number] [place], [place] [phone] NURSING PROGon 10-09-2019 NURSING PROG HNO ID: [id number] Author: Amanda NessRn) ОЛЕГ Delgadillo Service: Nursing Author Type: Registered Nurse Type: Nursing Progress Note Filed: 10/09/2019 6:36 PM Note Text: Nursing Progress Note Patient Name: Pedro Pablo Sierra Patient Location: [id number]/[facility] __ Daily Note: 1744: Bedside handoff received from ОЛЕГ Shields. 1800: Dr. Fish at bedside. Patient c/o numbness in left leg. Bilateral DP and PT pulses doppled. Dr. Fish obtaining consent for surgery tomorrow. 190: Bedside handoff given to ОЛЕГ Jarrell. This note was completed by: Amanda Delgadillo RN [facility] NURSING PROG HNO ID: [id number] Author: Cornelius Gonzalez RN Service: Nursing Author Type: Registered Nurse Type: Nursing Progress Note Filed: 10/09/2019 5:39 PM Note Text: Nursing Progress Note Patient Name: Pedro Pablo Sierra Patient Location: [id number]/[facility] __ Daily Note: 0700 Bedside report received from previous shift RN. 0800 Assessment completed and charted. Neuro intact. VSS. Pulses present via doppler. See flowsheets. 1200 Assessment completed and charted. 1600 Reassessment completed and charted. 1730 Heparin gtt started. See AUG. 1744 Bedside report given to Tigist AHUJA. This note was completed by: Cornelius Gonzalez RN [facility] NUTRITIONon 10-09-2019 NUTRITION HNO ID: [id number] Author: Muna Rivas Service: Nutrition Therapy Author Type: Registered Dietitian Type: Nutrition Filed: 10/09/2019 2:49 PM Note Text: NUTRITION THERAPY SCREEN NOTE SERVICE DATE: 10/09/2019 SERVICE TIME: 2:38 PM Care Plan: Continue current diet Supplements: Impact AR HPI: Per Rashawn Huntley 10/08/2019 69 year old male with CAD (EF 60% on 09/12/19), [place] in 2005, HTN, HLD, COPD, 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 May on 10/08/19. She is admitted to SICU post-operatively for neurovascular checks and close hemodynamic monitoring. ?? Intake History: Current Intake: 0-25% estimated energy needs Current Diet: DIET NPO Anthropometrics: Height: 172.7 cm (5' 8) Weight: 78.6 kg (173 lb 4.5 oz) Last Encounter Wt Readings: Date: Wt: 09/12/2019 76.7 kg (169 lb) 09/02/2019 78.6 kg (173 lb 4.5 oz) 09/02/2019 74.8 kg (165 lb) 08/30/2019 74.8 kg (165 lb) 08/22/2019 74.4 kg (164 lb) 08/08/2019 74.4 kg (164 lb) 08/07/2019 74.4 kg (164 lb) 07/11/2019 73.5 kg (162 lb) 07/02/2019 74.2 kg (163 lb 8 oz) 06/25/2019 74.8 kg (164 lb 14.4 oz) 05/02/2019 72.7 kg (160 lb 4.8 oz) 03/26/2019 69.4 kg (153 lb) 03/19/2019 69.4 kg (153 lb) 12/21/2018 71.8 kg (158 lb 6.4 oz) 11/09/2018 73.9 kg (163 lb) 08/08/2018 72.1 kg (159 lb) Weight change percentage over time: No weight loss noted SIGNATURE: Muna Rivas RD, LD PATIENT NAME: Pedro Pablo Sierra DATE: October 09, 2019 TIME: 2:38 PM PAGER: For further assistance and weekends please page the Group Pager [phone] [facility] PROGRESSon 10-09-2019 PROGRESS HNO ID: [id number] Author: Noman Fish MD Service: Vascular Surgery Author Type: Resident Type: Progress Notes Filed: 10/09/2019 8:36 AM Note Text: Attestation signed by Roberto Mcclain at 10/10/2019 12:35 AM STAFF PHYSICIAN ADDENDUM: I have seen and examined the patient on 10/09/19. I agree with the note documented by the resident/PA, and have discussed and determined management of this patient's care, with the following addendum: Complaining of persistent L foot rest pain. Unable to palpate left femoral pulse. Monophasic L AT signal. No PT signal. L foot is sensorimotor intact. Bedside duplex US shows no flow in L TELEVISION REPORTER. Formal arterial duplex of LLE shows occluded TELEVISION REPORTER. Plan for exploration and revascularization with Dr. May on 10/10/19. Roebrto Mcclain MD Staff, Vascular Surgery 10/09/19[facility] PROGRESS NOTE Service Date: 10/09/2019 Admit Date: 10/08/2019 Service Time: 6:30 AM LOS: 1 day(s) Primary Service: Vascular Surgery Vascular Physician: Ryan May MD Interval Events/Issues: No acute events overnight. afebrile HDS H/H 11.7- 9.3 Good uop with clark in place Left incision site hematoma noted overnight. Pain well controlled Subjective Current Facility-Administered Medications Medication Dose Route Frequency - heparin 5,000 Units injection 5,000 Units SUBCUTANEOUS q 12 H - NaCl 0.9% 3-5 mL 3-5 mL INTRAVENOUS q 12 H - lactated ringers infusion 50 mL/hr INTRAVENOUS CONTINUOUS - fentaNYL 50 mcg/mL 50 mcg injection (SUBLIMAZE) 50 mcg INTRAVENOUS q 5 MIN PRN - ondansetron 4 mg tab(s) (ZOFRAN) 4 mg ORAL q 6 H PRN Or - ondansetron (PF) 4 mg injection (ZOFRAN) 4 mg INTRAVENOUS q 6 H PRN - docusate sodium 100 mg cap(s) (COLACE) 100 mg ORAL BID PRN - bisacodyl 10 mg suppository (DULCOLAX) 10 mg RECTAL DAILY PRN - magnesium hydroxide 400 mg/5 mL 30 mL (MOM) 30 mL ORAL/FEEDING TUBE DAILY PRN - oxyCODONE IR 5-10 mg tab(s) (ROXICODONE) 5-10 mg ORAL q 4 H PRN - acetaminophen 1,000 mg tab(s) (TYLENOL) 1,000 mg ORAL q 6 H - ipratropium-albuterol 3 mL nebulizer solution (DUONEB) 3 mL INHALATION q 4 H PRN - hyoscyamine sublingual 0.25 mg tab(s) (LEVSIN SL) 0.25 mg SUBLINGUAL AC and HS - sertraline 100 mg tab(s) (ZOLOFT) 100 mg ORAL DAILY - mirtazapine 15 mg (REMERON) 15 mg ORAL AT BEDTIME - carBAMazepine 200 mg tab(s) (TEGretol) 200 mg ORAL BID - gabapentin 300 mg cap(s) (NEURONTIN) 300 mg ORAL q 12 H - pantoprazole DR 40 mg tab(s) (PROTONIX) 40 mg ORAL DAILY (6 AM) - dextrose 40 % 15 g 15 g ORAL PRN Or - glucagon 1 mg injection (GLUCAGEN) 1 mg INTRAMUSCULAR PRN Or - dextrose 50% in water 25 mL syringe 12.5 g INTRAVENOUS PRN - insulin lispro injection (rapid acting) (HumaLOG) SUBCUTANEOUS q 6 H - metoprolol tartrate (short acting) 12.5 mg tab(s) (LOPRESSOR) 12.5 mg ORAL q 12 H - ceFAZolin iv piggyback 2 g in D5W (iso-osmotic) 100 mL (ANCEF) 2 g INTRAVENOUS q 12 HR - amLODIPine 5 mg tab(s) (NORVASC) 5 mg ORAL DAILY Medication and Non-Pharmacologic VTE Prophylaxis/Anticoagul ants Anticoagulant AND Antiplatelet Medications (From admission, onward) Start Dose Route Frequency Ordered Stop 10/09/19 0900 heparin 5,000 Units injection (Surgical Risk Categories ) 5,000 Units SUBCUTANEOUS EVERY 12 HOURS 10/08/19 1655 -- 10/08/19 1700 activity - mobilize patient ([place], [place]) 10/08/19 1645 pneumatic compression stockings ([place]) VTE Prophylaxis: VTE prophylaxis appropriate ALLERGIES No Known Allergies Objective PHYSICAL EXAM: 10/09/19 0400 10/09/19 0500 10/09/19 0600 10/09/19 0726 BP: Pulse: 72 73 67 Resp: 18 17 17 Temp: 36.7 ?C (98.1 ?F) 36.8 ?C (98.2 ?F) TempSrc: Oral Temporal SpO2: 93% 96% 95% Weight: 78.6 kg (173 lb 4.5 oz) Height: Intake/Output Summary (Last 24 hours) at 10/09/2019 0826 Last data filed at 10/09/2019 0700 Gross per 24 hour Intake 3671 ml Output 2417 ml Net 1254 ml CONSTITUTIONAL: Well developed and Well nourished NEUROLOGIC/PSYCHIATRIC : Oriented to time, place AND person LUNGS: nonlabored breathing HEART: regular rate ABDOMEN: Soft and Non-tender INTEGUMENTARY: Wound - No SURGICAL SITES: Groin - right and left; Clean, dry and intact. Small left-sided hematom MUSCULOSKELETAL: No deformities Pulses/Signals: Radial Right: Palpable +2 - Left: Palpable +2 Femoral Right: Palpable +2 - Left: Palpable +2 Dorsalis Pedis Right: Palpable +2 - Left: Biphasic Signal Posterior Tibial Right: Palpable +2 - Left: Biphasic Signal DATA: Laboratory: Recent Labs 10/09/19 0400 10/08/19 1800 WBC 7.77 10.62 HB 9.3* 11.7* HCT 28.4* 35.7* PLT 220 280 Recent Labs 10/09/19 0400 10/08/19 1800 NA 136 137 K 4.5 4.1 BUN 15 12 CREAT 0.81 0.71 GLUC 129* 160* MG 2.1 1.5* Recent Labs 10/09/19 0400 10/08/19 1800 10/08/19 0749 APTT 20.8* 53.2* -- INR 1.0 1.0 1.2 Assessment/Plan Impression: 69 year old male with CAD (EF 60% on 09/12/19), [place] in 2005, HTN, HLD, COPD, 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 May on 10/08/19. Doing well postop. Small left hematoma and 2g Hgb drop, stable since overnight. Dressings removed POD1. Plan: -Ok for RNF -D/c clark -Regular diet -I/Os -Multimodality pain/nausea control -SSI -OOB/IS, PT/OT -Apply ice packs to left groin for pain/swelling -Hold anticoagulation -Ancef x24 hours postop SIGNATURE: Noman Fish MD PATIENT NAME: Pedro Pablo Sierra DATE: October 09, 2019 TIME: 8:26 AM PAGER/CONTACT #: See below. ETX#[id number] For questions Monday through Monday 6am to 6pm please page Red Team [phone] For questions during nights (6pm - 6am) and weekends, please contact the General Surgery [employer] pager, [phone] [facility] PROGRESS HNO ID: [id number] Author: Rashawn Huntley Service: Critical Care Author Type: Anesthesiologist Type: Progress Notes Filed: 10/09/2019 8:21 AM Note Text: SICU PROGRESS NOTE SERVICE DATE: 10/09/2019 SERVICE TIME: 6:40 AM POD #: 1 Subjective Interval events (last 24 hours) / Pertinent ROS: No acute events overnight. Afebrile. HD stable. Complains of pain and swelling of left groin. Objective VITAL SIGNS: BP 134/66 Pulse 67 Temp 36.7 ?C (98.1 ?F) (Oral) Resp 17 Ht 172.7 cm (5' 8) Wt 78.6 kg (173 lb 4.5 oz) SpO2 95% BMI 26.35 kg/m? PHYSICAL EXAM: General Appearance: Well appearing, In no acute distress Neuro: Awake, Follows commands, Moving all extremities and drowsy but arousable Pulmonary: Clear to auscultation. Breath Sounds Equal: Yes Cardiovascular: Regular rhythm Abdomen: Soft and Nontender Extremities: Edema- No Peripheral pulses- Left Femoral palpable DP palpable and PT biphasic Right Femoral palpable DP and PT biphasic Wounds/Drsgs- Yes Surgical incisions c/d/i. Presence of Pressure Ulcer No Surgical incisions: clean, dry and intact PATIENT LINES ASSESSED: Central Line: No central lines Arterial Line: Right Radial. Day Inserted: 10/08/19 CURRENT MEDICATIONS: Medications reviewed. Please refer to [facility] for list of inpatient medications. Current Facility-Administered Medications Medication Dose Route Frequency Provider Last Rate Last Dose - meperidine (PF) 12.5 mg injection (DEMEROL) 12.5 mg INTRAVENOUS q 10 MIN PRN Anabel Lozano - HYDROmorphone 0.2 mg injection (DILAUDID) 0.2 mg INTRAVENOUS q 5 MIN PRN Anabel Lozano - prochlorperazine 10 mg injection (COMPAZINE) 10 mg INTRAVENOUS q 6 H PRN Anabel Lozano - heparin 5,000 Units injection 5,000 Units SUBCUTANEOUS q 12 H Rashawn Huntley - NaCl 0.9% 3-5 mL 3-5 mL INTRAVENOUS q 12 H Rashawn Huntley 5 mL at 10/08/19 1700 - lactated ringers infusion 100 mL/hr INTRAVENOUS CONTINUOUS Rashawn Huntley 100 mL/hr at 10/08/19 2205 100 mL/hr at 10/08/19 2205 - fentaNYL 50 mcg/mL 50 mcg injection (SUBLIMAZE) 50 mcg INTRAVENOUS q 5 MIN PRN Rashawn Huntley - ondansetron 4 mg tab(s) (ZOFRAN) 4 mg ORAL q 6 H PRN Rashawn Huntley Or - ondansetron (PF) 4 mg injection (ZOFRAN) 4 mg INTRAVENOUS q 6 H PRN Rashawn Huntley - docusate sodium 100 mg cap(s) (COLACE) 100 mg ORAL BID PRN Rashawn Huntley - bisacodyl 10 mg suppository (DULCOLAX) 10 mg RECTAL DAILY PRN Rashawn Huntley - magnesium hydroxide 400 mg/5 mL 30 mL (MOM) 30 mL ORAL/FEEDING TUBE DAILY PRN Rashawn Huntley - oxyCODONE IR 5-10 mg tab(s) (ROXICODONE) 5-10 mg ORAL q 4 H PRN Rashawn Petersonrick 10 mg at 10/09/19 0624 - acetaminophen 1,000 mg tab(s) (TYLENOL) 1,000 mg ORAL q 6 H aRshawn Petersonrick 1,000 mg at 10/09/19 06 - ipratropium-albuterol 3 mL nebulizer solution (DUONEB) 3 mL INHALATION q 4 H PRN Rashawn Huntley - hyoscyamine sublingual 0.25 mg tab(s) (LEVSIN SL) 0.25 mg SUBLINGUAL AC and HS Rashawn Medrick 0.25 mg at 10/09/19 0625 - sertraline 100 mg tab(s) (ZOLOFT) 100 mg ORAL DAILY Rashawn Huntley 100 mg at 10/08/191808 - mirtazapine 15 mg (REMERON) 15 mg ORAL AT BEDTIME Rashawn Huntley 15 mg at 10/08/192102 - carBAMazepine 200 mg tab(s) (TEGretol) 200 mg ORAL BID Rashawn Huntley 200 mg at 10/08/192102 - gabapentin 300 mg cap(s) (NEURONTIN) 300 mg ORAL q 12 H Rashawn Petersonrick 300 mg at 10/08/191807 - pantoprazole DR 40 mg tab(s) (PROTONIX) 40 mg ORAL DAILY (6 AM) Rashawn Huntley 40 mg at 10/09/19 06 - dextrose 40 % 15 g 15 g ORAL PRN Rashawn Huntley Or - glucagon 1 mg injection (GLUCAGEN) 1 mg INTRAMUSCULAR PRN Rashawn Huntley Or - dextrose 50% in water 25 mL syringe 12.5 g INTRAVENOUS PRN Rashawn Huntley - insulin lispro injection (rapid acting) (HumaLOG) SUBCUTANEOUS q 6 H Rashawn Huntley - metoprolol tartrate (short acting) 12.5 mg tab(s) (LOPRESSOR) 12.5 mg ORAL q 12 H Rashawn Huntley 12.5 mg at 10/08/19 1806 - ceFAZolin iv piggyback 2 g in D5W (iso-osmotic) 100 mL (ANCEF) 2 g INTRAVENOUS q 12 HR Misael (Res) MD Steffany PERTINENT CULTURES: Cultures were reviewed. Pertinent cultures from this hospitalization are listed below. Plese refer to [facility] for a full listing of cultures obtained during this hospitalization. ? N/A DIAGNOSTIC TESTS: The following diagnostic tests/findings were reviewed: ? Most recent labs and imaging results. MOST RECENT CXR FINDINGS: n/a OPERATIVE PROCEDURE(S): Date of surgery: 10/08/19 Procedure: Left common TELEVISION REPORTER endarterectomy with bovine path Left profundoplasty Left iliac stenting X4 (I-Cast X2, Jessica X2) Multiple angiograms with angioplasty Surgeon: Dr. 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 May on 10/08/19. She is admitted to SICU post-operatively for neurovascular checks and close hemodynamic monitoring. ? ? REASON FOR ICU ADMISSION: Neurovascular checks q2h and hemodynamic monitoring ? Neuro: -Pain regimen: tylenol, PRN oxycodone, Fentanyl -Resume gabapentin, carbamazepine, Remeron, Zoloft -Hold other home meds ? CV: CAD, CHF, HTN, HLD, -Resume Norvasc -Lopressor 12.5mg BID ? Pulm: PJ, COPD -Duonebs q4h -Encourage OOB and IS ? Renal: -Monitor I/Os -Replete lytes -IVF until tolerating PO -D/c Clark. Void check. ? GI: -Diet: Resume diet. -Protonix for GERD -Bowel regimen ? Heme: -Monitor for signs of bleeding. -Trend H/H -Hold Coumadin, Heparin to restart possibly today. Will discus with Vascular surgery. -DVT ppx: SCDs ? Fluid/Electrolyte/Nutr ition: -mIVF ? ID: -Monitor for signs of infection -Periop Abx: Ancef for 24hr ? Endo: DM2 -SSI 1 -Hold home meds ? -Encourage OOB. -PT/OT evaluation ? Lines/Tubes/Prophylaxi s/Disposition: -Lines: Right radial a line -Tubes: D/c Clark -Prophylaxis: -Dispo: Possible RNF today Medication and Non-Pharmacologic VTE Prophylaxis/Anticoagul ants Anticoagulant AND Antiplatelet Medications (From admission, onward) Start Dose Route Frequency Ordered Stop 10/09/19 0900 heparin 5,000 Units injection (Surgical Risk Categories ) 5,000 Units SUBCUTANEOUS EVERY 12 HOURS 10/08/19 1655 -- 10/08/19 1700 activity - mobilize patient ([place]) 10/08/19 1645 pneumatic compression stockings ([place], [place]) VTE Prophylaxis: VTE prophylaxis appropriate To be seen and discussed on rounds with SICU staff: Dr. Huntley ICU Checklist --------- --- VTE Prophylaxis: SIGNATURE: Misael Jeter MD PATIENT NAME: Pedro Pablo Sierra DATE: October 09, 2019 TIME: 6:40 AM PAGER/CONTACT #: [phone] [facility] STAFF PHYSICIAN NOTE OF PERSONAL INVOLVEMENT IN CARE ? I have reviewed the progress note?obtained and documented by the resident?and I personally participated in the echevarria components. I have discussed the case and management of the patient's care. The following comments revise or confirm relevant echevarria components of their note. LLE ischemia PVD Acute post-op pain Lupus anticoagulant PJ COPD Current smoker Essential HTN GERD Procedure/Surgeon 10/08/19 S/P L TELEVISION REPORTER endarterectomy with bovine path, profundoplasty and iliac stenting Pain is modestly controlled HD's reassuring Neurovascular checks as expected No signs of respiratory compromise Diet advanced No signs of FLEX on labs, continue to monitor voids Clark and arterial line can be removed Afebrile and without leukocytosis Defer AC to vascular surgery, currently holding secondary to groin swelling Adequate glycemic control with SSI Stable to transfer to a lower level of care outside the ICU Case discussed with Vascular Sx chief resident Rashawn Huntley, 8:20 AM October 09, 2019 Normal [facility] PTT,Anticoag Therapyon 10-08 aPTT Coag (Bld) [Time] 23.9 s Normal 23.0-32.4 [facility] Comment on above: Result Comment: Unfr actionated Heparin Therapeutic Ranges: Standard Heparin Nomogram: 53 to 78 seconds (anti-Xa level of 0.3 to 0.7 U/ml) Low Dose/ACS Nomogram: 49 to 67 seconds (anti-Xa level of 0.2 to 0.5 U/ml) Stroke Treatment Nomogram: 49 to 67 seconds (anti-Xa level of 0.2 to 0.5 U/ml) Note: The APTT therapeutic range has been determined for the current lot of laboratory APTT reagent in use throughout the [facility]. Performed By: #### P T, PTTAC ####[address] [phone] Phosphoruson 10-09-2019 Phosphate [Mass/Vol] 3.6 mg/dL Normal 2.5-4.5 [facility] Comment on above: Performed By: #### C BC, BMP, MG1, PHOS, PTT, PT ####[address] [phone] Protimeon 10-09-2019 PT Coag (PPP) [Time] 10.2 s Normal 9.7-13.0 [facility] Comment on above: Performed By: #### P T, PTTAC ####[address] [phone] PT Coag (PPP) [Time] 1.0 s Normal 0.9-1.3 [facility] Comment on above: Result Comment: Teri min K Antagonist (VKA) Therapeutic Range: INR 2 to 3 (Target INR of 2.5) Note: For patients treated with VKA drugs, such as warfarin, the [place] [employer] 2012 Guideline recommends [...] to 3.5 (target INR of 3). Jael GH, et al. Chest 2012, 141:7S-47S Gio RA, et al. [facility] 2017, 70: 252-289 Performed By: #### P T, PTTAC ####[place] [phone] Performed By: #### C BC, BMP, MG1, PHOS, PTT, PT ####[place] [phone] PT Coag (PPP) [Time] 10.5 s Normal 9.7-13.0 [facility] Comment on above: Performed By: #### C BC, BMP, MG1, PHOS, PTT, PT ####[place] [phone] Staph aureus PCRon 0 MRSA PCR Negative Normal [facility] Comment on above: Performed By: #### S APCR ####[place] [phone] [place] [phone] S aureus Spec Source Nasal Normal [facility] Comment on above: Performed By: #### S APCR ####[place] [phone] [place] [phone] Staph aureus PCR Negative Normal [facility] Comment on above: Performed By: #### S APCR ####[facility] [place], [place] [phone] [address] [place], [place] [phone] THERAPY NTon 10-09-2019 THERAPY NT HNO ID: [id number] Author: Shakir Freeman (Pt) Mode Service: Physical Therapy Author Type: Physical Therapist Type: Therapy (PT/OT/Speech/Resp) Filed: 10/09/2019 2:58 PM Note Text: Physical Therapy Evaluation SERVICE DATE: 10/09/2019 SERVICE TIME: 1055 to 1120 ROOM: [place] [address] Recommended Discharge Disposition: Home PT Anticipated Discharge Needs: Physical Assist at Home Physical Assist at Home for: Cleaning;Laundry;Meals ;Transportation;Shoppi ng Supervision at Home due to: Impaired cognition Recommended Discharge Equipment: To Be Determined PT Recommendations to Nursing: Ambulate with device;In halls;OOB for Meals;With assist of 1 person Device: Wheeled Walker PT 6 Clicks Score: 18 Precautions/Activity Restrictions: Bed/Chair Alarm;Fall Risk Precaution/Activity Restriction Comments: heart healthy diet, mobility pt ASSESSMENT : Pt presents with weakness, L groin pain, decreased activity tolerance, impaired balance, and functional mobility, increasing pt's risk for falls and reliance on others for assistance. Pt could benefit from skilled therapy services to address impairments and to maximize function and safety. Pt lives alone and is normally independent in functional mobility, ADL's, and IADL's. Currently, he requires up to min assistance for OOB functional mobility when using a ww for support. Pt reports L LE pain and weakness. Based on his current functional mobility, I am recommending that he return home with home PT services, have prn assistance for IADL's, and use a ww for support during mobility. Patient Disposition at Start of Session: OOB in Chair;Call Nelson in Reach;Chair Alarm Patient Disposition at End of Session: OOB in Chair;Call Nelson in Reach;Chair Alarm Tolerance Limited By Pain;Other: See Comment(reports of L LE instability) Physical Therapy Problem List: Safety Deficits;Decreased Activity Tolerance;Decreased Strength;Functional Mobility Impairment;Balance Impaired;Pain Patient /Caregiver Goals: Other: See Comment(ind functional mobility) Goals for Plan of Care: Able to perform HEP with: Independent Rolling with: Modified Independent Transfer supine to/from sit with: Modified Independent Transfer sit to/from stand with: Modified Independent Ambulate with: Modified Independent Distance: 200 Device: Wheeled Walker Ambulate up and down steps with: Modified Independent Number of steps: 5 Device: Rail Rehab Potential: Good PLAN: Treatment Frequency (times per week): 5(+1prn visit) Current admission Treatment Interventions: Education;Strengthenin g;Functional Mobility Training;Balance Training;Energy Conservation Training Plan of Care developed with: Patient TREATMENT INTERVENTIONS: Therapy Diagnosis: Reduced mobility-other;Muscle Weakness (generalized);Unsteadi ness on feet Interventions Provided: Evaluation;Gait Training (81782) $ Evaluation-Moderate (24752) Billed Units: 1 unit Gait Training (32951) Treatment Minutes: 10 1 unit Skilled Intervention(s): Instruction in sit to stand technique with proper hand placement and body positioning at edge of bed/chair, Instruction in stand to sit technique with LE's touching chair/bed and reaching back for surface, Instruction in sequencing, gait pattern, Instruction in correction of gait deviations, Instruction in use of equipment, cues for sequence and pattern and pt walked with therapist assistance for functional mobility training, strengthening, and balance. Total Timed Code Treatment Minutes: 10 Total Treatment Time (minutes): 25 SUBJECTIVE: Current Hospital Course: Chart reviewed; refer below Reason for Physical Therapy Consult : PVD s/p L LE redo TELEVISION REPORTER endarterectomy, L profundoplasty, iliac stenting on 10/08/19 Relevant Past Medical History: CAD, [place], HTN, HLD, COPD, PJ, DM, anxiety, depression, blind R eye Patient Report: Pt agreeable to participate in therapy session Home Environment Patient Lives With: Self/Alone Assistance Available: time study clerk Entry To Home: Stairs;Other: See Comment(stair lift) Number Of Stairs Into Home: 4 Number Of Stairs To Bed/Bath: 0 Tub/Shower Type: Walk in Laundry: First floor- in unit Equipment Owned: Home Oxygen;Shower Chair;Grab Bars-Shower;Hand Held Shower;Commode-Raised; Cane;Wheeled Walker Prior Functional Level: Within Functional Limits;Required Assistance Assistance Required With: Meals(has MOW) Prior Functional Level Comments: Per pt, Ind ADLs, IADLs, drives, amb using cane. Receives MOW. OBJECTIVE: Mini Cog Score: 1 (10/09/19 1010) CURRENT FUNCTIONAL STATUS: Current Functional Mobility Assist Level Additional Information Rolling Supine to Sit Sit to Supine Scooting Stand By Assistance Sit to Stand Minimal Assistance Stand to Sit Contact Guard Assistance Bed to Chair Toilet/Commode Gait Contact Guard Assistance Gait Device: Wheeled Walker Gait Distance (feet): 100 Stairs Curb Step Car Transfer Gait Deviations Left Lower Extremity: Step length decreased;Stance time decreased General Deviations/Observation s: Odilia decreased;Flexed trunk posture;Antalgic gait;Step length decreased Balance: Static Sitting;Static Standing;Dynamic Standing Static Sitting Balance: Fair Patient able to maintain balance with handhold support, may require occasional minimal assistance Static Standing Balance: Fair Patient able to maintain balance with handhold support, may require occasional minimal assistance Dynamic Standing Balance: Fair Patient accepts minimal challenge, able to maintain balance while turning head/trunk -HLM: 7: Walk 25 feet or more Please see discipline specific clinical documentation flowsheet for complete details for this therapy evaluation/treatment. SIGNATURE: Shakir Coello PT PATIENT NAME: Pedro Pablo Sierra DATE: October 09, 2019 TIME: 2:46 PM Normal [facility] THERAPY NT HNO ID: [id number] Author: Caitlin NessOtPauline Thomas Service: Occupational Therapy Author Type: Occupational Therapist Type: Therapy (PT/OT/Speech/Resp) Filed: 10/09/2019 12:48 PM Note Text: Occupational Therapy Evaluation SERVICE DATE: 10/09/2019 SERVICE TIME: 1010 to 1050 ROOM: [id number] Recommended Discharge Disposition: Home OT Justification For Post Acute Needs: Good family support;Good premorbid functional status;Living the community premorbidly;Good sitting tolerance;Willing to participate Anticipated Discharge Needs: Physical Assist at Home;Supervision at Home;Equipment Physical Assist at Home for: Cleaning;Laundry;Shopp ing;Transportation;Med ication Management;Meals Supervision at Home due to: Impaired cognition Recommended Discharge Equipment: Shower Chair;Grab Bars-Shower;Grab Bars-Toilet;Hand Held Shower;Wheeled Walker;ADL Kit;Commode-Raised OT Recommendations to Nursing: With assist of 1 person;ADL?s in chair OT 6 Clicks Score: 18 Precautions/Activity Restrictions: Fall Risk;Lines/Tubes/Drain s Precaution/Activity Restriction Comments: mobilize, heart healthy ASSESSMENT: Pt presents with impaired self care task performance, decreased functional mobility, decreased strength/endurance, decreased safety. Patient would benefit from skilled OT services to increase activity tolerance, independence and safety with ADL performance, instruction of energy conservation techniques, provide cognitive strategies, increase safety, and improve balance during functional mobility tasks. Patient may benefit from Home Occupational Therapy to continue to progress functional mobility and ADL skills. Patient has adequate support and social structure for reasonably safe discharge home at current level. Patient requires continued monitoring of vital signs due to potential fluctuations with activity, functional mobility, and ADL's. Therapy will instruct/educate the patient regarding safe dosing of activity. Patient Disposition at Start of Session: Supine in Bed;Call Nelson in Reach Patient Disposition at End of Session: OOB in Chair;Call Nelson in Reach Tolerated Full Session Occupational Therapy Problem List: Cognitive Deficit;Education Deficit;Safety Deficits;Impaired Self Care;Decreased Activity Tolerance;Decreased Strength;Functional Mobility Impairment;Balance Impaired Patient /Caregiver Goals: Go Home Goals for Plan of Care: Grooming with: Supervision Upper Body Bathing with: Supervision Upper Body Dressing with: Supervision Lower Body Bathing with: Supervision Lower Body Dressing with: Supervision Toilet Hygiene with: Supervision Chair Transfer with: Supervision Toilet Transfer with: Supervision Tolerate (minutes of functional activity): 30 Functional Activity with: Supervision Increased Awareness of Cognitive Impairments as Related to ADL's/IADL's: Demonstrated Rehab Potential: Good PLAN: Treatment Frequency (times per week): 3(+1 prn visit) Current admission Treatment Interventions: Education;Self Care / Home Management;Energy Conservation Training;Strengthening ;Functional Mobility Training;Balance Training;Cognitive Training Plan of Care developed with: Patient TREATMENT INTERVENTIONS: Therapy Diagnosis: Reduced mobility-other;Decreas ed activities of daily living (ADL);Signs and Symptoms Involving Cognitive Functions and Awareness;Unsteadiness on feet Interventions Provided: Evaluation;Self [facility] (59943) $ Evaluation-Moderate (19657) Billed Units: 1 unit Self [facility] Management (86379) Treatment Minutes: 25 2 units Skilled Intervention(s): Instructed in energy conservation principles relating to ADLs and functional transfers. OT recommending Shower Chair;Grab Bars-Shower;Grab Bars-Toilet;Hand Held Shower;Wheeled Walker;ADL Kit;Commode-Raised for increased balance, safety, and energy conservation. Pt owns above DME. Provided instruction, cuing and facilitation for lower body dressing. Pt unable to don socks seated at EOB. Recommend LBAE for increased Ind and safety. Mod A for balance in stance during LB clothing management in stance with ww support. Pt requires mod verbal/tactile cues for safety and sequencing throughout session as pt easily distracted. Pt awake, oriented x 2. OT administers Mini Cog with patient scoring 1/5. Pt appears to present with decreased STM/cognition which may affect the patient's ability to safely perform ADLs and IADLs including medication management post discharge. Recommend skilled OT to address ADLs, IADLs, cognition, and safety post discharge. OT recommends 24 hour supervision for safety 2* decreased cognition. OT also recommends assist with all IADLs including med management and oven/stove top cooking. Pt positioned for comfort with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 Continue with nicotine patches as directed. ? Pulmonary surgical clearance. The features of this patient's history that contribute to the pulmonary risk assessment include: Very severe COPD (FEV1 46%) and continued tobacco use. ? Canet risk score- 3 Points ----> 1.6 % for all cause pulmonary complication, however, it took a course of Prednisone to obtain these results. Based on my clinical judgement, patient is a much higher risk than 1.6%. ? In order to minimize the risk of complications and optimize pulmonary status, we recommend the following: ? This patient has 1.6% risk of post-operative pulmonary complications. In order to minimize the risk of complications and optimize pulmonary status, we recommend the following: ? Intra -OP: - Per Anesthesia, would recommend use of Short acting paralytics and NM blocking agents, reducing the time for general anesthesia, Spinal vs GA. ? Post OP - Early ambulation and physical therapy as tolerated post-operatively - Encourage aggressive incentive spirometry hourly as tolerated - Bronchodilators Scheduled Q 6 hrs and as needed for wheezing or shortness of breath Staffed with Dr Steele. ? I addressed the questions of the patient, and he expressed understanding and acceptance of my answers. ? Emilie Jauregui PA-C [facility] Respiratory [place] [facility] [address] [place] [address] ? Attending Note I have personally discussed the patient and test results with Emilie Jauregui PA-C, and?I have reviewed the PA note.? History is as recorded. Exam is as recorded. Assessment/Plan are as recorded. ? Other additions or changes: None. ? Signature: Uri Steele MD Cardiovascular: +CAD, prior WI per patient, no data or evidence of MPI of 2013 +h/o CP, unclear etiology, stress test pending today +HTN, on rx, suboptimal control with med adjustments made 08/30/2019 +HLD statin compliant +PAD, s/p multiple interventions with aortoiliac disease Denies chest pain or sob. Denies hx of DVT/PE. 08/30/[address] Medina ASSESSMENT/PLAN: 1. Preoperative cardiovascular examination - ICD9: V72.81, ICD10: Z01.810 (primary diagnosis) CVRI risk 3, Intermediate risk 2.2-5.6% risk. Will check echo and MPI Pharm stress to better risk stratify ? 2. Coronary artery disease involving jena heart without angina pectoris, unspecified vessel or lesion type - ICD9: 414.01, ICD10: I25.10 Prior WI per patient but do not have data and no evidence on MPI of 2013 ? 3. Chest pain, unspecified type - ICD9: 786.50, ICD10: R07.9 Chest pain of unclear etiology, patient with significant risk factor(s) of family history of early coronary heart disease, Hypertension, Hyperlipidemia, history of CAD and smoking - Stress testing- see orders ? 4. Essential hypertension - ICD9: 401.9, ICD10: I10 - suboptimal control - Encouraged dietary sodium restriction/DASH diet - Recommended regular aerobic exercise. - Reviewed risks of HTN and principles of treatment - Goal of BP <130/80 - Patient counselled on smoking cessation. ? 5. Mixed hyperlipidemia - ICD9: 272.2, ICD10: E78.2 - good control - Continue current dose of atorvastatin (Lipitor) 40 mg. - ECG COMPLETE - ECHO - NM CARDIAC PERF STRESS/PHARM ? 6. PAD (peripheral artery disease) (HCC) - ICD9: 443.9, ICD10: I73.9 S/p multiple interventions with aortoiliac disease ? 7. Smoker - ICD9: 305.1, ICD10: F17.200 - Cessation encouraged. - Physiologic and physical aspects of tobacco addiction as well as strategies for quitting were discussed. - Counseling was given focusing on the harmful effects of this addiction especially given the patient's medical condition(s) which will be worsened because of the chemicals in tobacco. - Counseling was given 3-4 minutes. - On Nicotine patch wean per pulmonary ? ? We had a long discussion regarding his events, treatment, prevention and prognosis. I reviewed the secondary prevention program in great detail with reference to risks, benefits, personal goals and mechanics. We discussed his coronary risk factors and perioperative cardiac risk. We discussed smoking cessation at great length. ? He does have hypertension and some of this is labile related to his claudication pain. I did suggest trial of amlodipine to help with his blood pressure and this may or may not help with some his peripheral vascular flow symptoms. He is on a relatively low to medium dose beta joel and it is possible this may contribute to some vascular pain with less opposed alpha receptor stimulation and vasoconstriction. If he does have CAD, which is very likely, then continuing the beta joel if Ok with vascular service would be helpful. ? We will do a pharm MPI and echo preop for better risk stratification however his risk is at least intermediate at 2.2-5.6% cardiac event perioperatively. I will review his results and further recommendations at that time. ? Thank you for allowing me the privilege of participating in the care of your patient. Please do not hesitate to contact me if there are any questions. Geronimo Medina, DO, FACC, FCCP, FACOI GI: Negative for PUD, Nausea, Vomiting, Abdominal pain, Liver disease, ETOH > 2 drinks / day +GERD on rx. +h/o IBD, rx as needed : No history of dysuria, frequency or incontinence,, stones or chronic kidney disease +Urinary retention/BPH, on rx Endocrine: No history of diabetes. Has not taken steroids within the past 30 days. No history of endocrinological symptoms or problems. Hematology: Chronic anti-coagulation / platelet meds (Coumadin) +h/o anemia, last CBC 03/2019 normal H/H +Lupus anticoagulant disorder, on Coumadin Oncology: No history of CA metastasis, chemo within 30 days, or radiotherapy within 90 days. Has not lost 10% of body wt in 6 months. No history of oncological symptoms or problems. Psych: Anxiety and depression on rx Musculoskeletal: +chronic back pain, on rx, h/o compression fractures, following pain management, Dr. Vizcarra Skin: Negative for lesions, rash and itching. Objective PHYSICAL EXAM: VITALS: BP 149/71 Pulse 70 Temp (Src) 98.2 (Tympanic) Resp 16 Ht 5' 8 (1.73m) Wt 169 lb (76.7kg) SpO2 95% BMI 25.70 kg/(m2). General: Alert and oriented x3, using cane, antalgic gait Skin: Normal color, no rash, no lesions. HEENT: EOM, pupils equal, round and reactive. Cardiovascular: Normal S1 AND S2, no rubs, murmurs or gallops. No JVD. Pulse regular. Lungs: Normal breath sounds, no wheezes or crackles. Abdomen: Soft, non-tender, no rigidity. Extremities: No deformity, no edema or tenderness, no joint swelling or clubbing. Neurological: Normal cognition and motor skills. Pulses: Carotid and radial pulses normal +2. Diagnostic tests reviewed for today's visit: Lab Value Units Date High Low HB 14.1 g/dL 03/19/2019 17.0 13.0 HCT 44.5 % 03/19/2019 51.0 39.0 WBC 6.99 k/uL 03/19/2019 11.00 3.70 PLT 296 k/uL 03/19/2019 400 150 NA 142 mmol/L 03/19/2019 144 136 K 4.1 mmol/L 03/19/2019 5.1 3.7 GLUC 96 mg/dL 03/19/2019 99 74 BUN 12 mg/dL 03/19/2019 24 9 CREAT 0.79 mg/dL 07/18/2019 1.22 0.73 PTSEC No results within date range. INR 2.0 no uni* 08/29/2019 1.2 0.8 APTT No results within date range. ALT 21 U/L 03/19/2019 54 10 AST 22 U/L 03/19/2019 40 14 TBILI 0.2 mg/dL 03/19/2019 1.3 0.2 TSH No results within date range. Lab Value Units Date High Low HCGQT No results within date range. UHCG No results within date range. HCG, BODY* No results within date range. Lab Value Units Date High Low ABORHD No results within date range. ABSCREEN No results within date range. Hemoglobin A1C (%) Date Value 05/18/2018 6.0 03/22/2017 5.6 07/31/2015 5.9 05/30/2014 5.7 08/19/2013 5.5 Most recent labs Most recent imaging Most recent EKG Assessment/Plan CAD (coronary artery disease) Assessment: h/o WI per pt, pending MPI today ordered by Dr. Medina Echo 09/12/2019 CONCLUSIONS: - Technically difficult exam due to body habitus. - Exam indication: SOB - The left ventricle is normal in size. Left ventricular systolic function is normal. EF = 60 ? 5% (3D) Grade I left ventricular diastolic dysfunction. - The right ventricle is normal in size. Right ventricular systolic function is normal. - Estimated right ventricular systolic pressure is 15 mmHg consistent with normal pulmonary artery pressures. Estimated right atrial pressure is 8 mmHg based on IVC ?assessment. - No significant valvular disease. - The patient has not had a prior CC echocardiographic exam for comparison. ? Hyperlipidemia Assessment: stable on rx Hypertension Assessment: controlled on rx 09/12/19 1052 09/12/19 1054 BP: 160/101 149/71 PVD (peripheral vascular disease) ([facility]) Assessment: s/p multiple interventions with aortoiliac disease COPD (chronic obstructive pulmonary disease) ([facility]) Assessment: severe, attempting to quit, Nicoderm patch. Following Dr. Steele, received Pulmonary clearance, see ROS PJ (obstructive sleep apnea) Assessment: does not wear CPAP, does use 2L oxygen at night for nocturnal hypoxia IBD (inflammatory bowel disease) Assessment: no current tx, rx as needed. No recent flares GERD (gastroesophageal reflux disease) Assessment: controlled on rx Urinary retention with incomplete bladder emptying Assessment: controlled on rx Anemia due to acute blood loss Assessment: +h/o anemia, last CBC 03/2019 normal H/H, new labs pending Lupus anticoagulant disorder (HCC) Assessment: currently on Coumadin, TE sent to surgeon for pre-op instructions Blindness of right eye . Chronic low back pain Assessment: h/o compression fractures, following pain management, rx as needed Anxiety and depression Assessment: stable on rx per pt Illiterate Assessment: pt states severe difficulty reading, please assist with discharge instructions METS: Climb a flight of stairs or walk up a hill (5.50 METs) Patient denies any chest pain or undue shortness of breath with the above physical activity. ASA Class: 3 ANESTHESIA FINDINGS: Intubation History: No history of difficult intubation Significant Anesthesia Considerations: None Airway Exam: General: Normal appearance Mallampati Score is CLASS I ULBT: Class II - Lower incisors can bite the upper lip below the keshav line Neck: Normal appearance and function, Distance from hyoid to mentum during neck extension is at least 3 finger breaths Mouth: Normal tongue size and Mouth opening greater than 2 finger breaths Dentition: NONE Airway History: No abnormal airway history STOP BANG Score: PJ does not use CPAP/BiPAP Pulmonary surgical recommendations from Dr. Steele's office Intra -OP: - Per Anesthesia, would recommend use of Short acting paralytics and NM blocking agents, reducing the time for general anesthesia, Spinal vs GA. ? Post OP - Early ambulation and physical therapy as tolerated post-operatively - Encourage aggressive incentive spirometry hourly as tolerated - Bronchodilators Scheduled Q 6 hrs and as needed for wheezing or shortness of breath PLAN Pt optimally prepared for surgery, pending day of surgery Pt has received pulmonary clearance and cardiac clearance is pending Echo/MPI. CONSULTS: Patient does not require consults for optimization at this time. The Following Tests/Procedures Have Been Initiated: Orders Placed This Encounter >CBC + AUTO DIFF Standing Status: Future Number of Occurrences: 1 Standing Expiration Date: 09/10/2020 >CMP Standing Status: Future Number of Occurrences: 1 Standing Expiration Date: 09/10/2020 TYPE + SCREEN,30 DAY Standing Status: Future Number of Occurrences: 1 Standing Expiration Date: 09/10/2020 , EKG not indicated per [facility] protocol Planned Anesthetic: Per anesthesia choice Instructions Given to Patient: Instructions located in the after visit summary. Patient given verbal and written preop instructions and voices comprehension and compliance. SIGNATURE: Marilyn Yee APRN.CNP PATIENT NAME: Pedro Pablo Sierra DATE: September 11, 2019 TIME: 11:52 AM PAGER/CONTACT #: [facility] 09-02-2019 [facility] Patient:Pedro Pablo Sierra MRN: Height:5' 8(1.727 m) Weight:169 lb (76.658 kg) Outpatient Medications as of 10/10/19: aspirin 81 mg chewable tablet gabapentin (NEURONTIN) 300 mg capsule warfarin (COUMADIN) 5 mg tablet enoxaparin (LOVENOX) 60 mg/0.6 mL syrg atorvastatin (LIPITOR) 40 mg tablet carBAMazepine XR (TEGRETOL XR) 200 mg 12 hr tablet perflutren lipid microspheres (DEFINITY) 1.1 mg/mL injection (to be provided with echo procedure) amLODIPine (NORVASC) 5 mg tablet fluticasone-umeclidin- vilanter (TRELEGY ELLIPTA) 100-62.5-25 mcg dsdv nicotine (NICODERM CQ) 21 mg/24 hr nicotine (NICODERM CQ) 14 mg/24 hr nicotine (NICODERM CQ) 7 mg/24 hr senna (SENNA CONCENTRATE) 8.6 mg tab warfarin (COUMADIN) 1 mg tablet finasteride (PROSCAR) 5 mg tablet >Nebulizer For Home albuterol HFA (VENTOLIN HFA) 90 mcg/actuation inhaler warfarin (COUMADIN) 10 mg tablet tamsulosin ER (FLOMAX) 0.[address] (PROTONIX) 40 mg tablet mirtazapine (REMERON) 15 mg tablet metoprolol tartrate, short acting, (LOPRESSOR) 25 mg tablet hydrOXYzine HCl (ATARAX) 50 mg tablet sertraline (ZOLOFT) 100 mg tablet dicyclomine (BENTYL) 20 mg tablet peg 3350-Electrolytes (GOLYTELY) 236-22.74-6.74 -5.86 gram suspension COMPOUNDED PRESCRIPTION ipratropium-albuterol (DUONEB) 0.5 mg-3 mg(2.5 mg base)/3 mL nebu COMPOUNDED PRESCRIPTION warfarin (COUMADIN) 5 mg tablet Back Brace misc HYDROcodone-acetaminop hen (NORCO) 5-325 mg per tablet lidocaine 4 % gel Blood Pressure Monitor kit Admission/Clinic Administered Medications as of 10/10/19: potassium chloride ER 20 mEq tab(s) (K-DUR, KLOR-CON) amLODIPine 5 mg tab(s) (NORVASC) carBAMazepine XR 200 mg tab(s) (TEGretol XR) insulin lispro injection (rapid acting) (HumaLOG) nicotine 21 mg/24 hr 1 Patch (NICODERM) nicotine -- REMOVE patch nicotine - verify patch clopidogrel 75 mg tab(s) (PLAVIX) polyethylene glycol 3350 17 g packet (MIRALAX, GLYCOLAX) docusate sodium 100 mg cap(s) (COLACE) budesonide 0.25 mg/2 mL 0.25 mg (PULMICORT) ipratropium-albuterol 3 mL nebulizer solution (DUONEB) heparin iv infusion (LOW DOSE ACS/NOMOGRAM) 25,000 units in NaCl 0.45% 250 mL PREMIX heparin RATE CHANGE bolus 1,000-4,000 Units for subtherapeutic aptt results ceFAZolin iv piggyback 2 g in D5W (iso-osmotic) 100 mL (ANCEF) NaCl 0.9% iv infusion fentaNYL 50 mcg/mL 25 mcg injection (SUBLIMAZE) oxyCODONE IR 5-10 mg tab(s) (ROXICODONE) NaCl 0.9% 3-5 mL ondansetron 4 mg tab(s) (ZOFRAN) ondansetron (PF) 4 mg injection (ZOFRAN) bisacodyl 10 mg suppository (DULCOLAX) magnesium hydroxide 400 mg/5 mL 30 mL (MOM) acetaminophen 1,000 mg tab(s) (TYLENOL) ipratropium-albuterol 3 mL nebulizer solution (DUONEB) hyoscyamine sublingual 0.25 mg tab(s) (LEVSIN SL) sertraline 100 mg tab(s) (ZOLOFT) mirtazapine 15 mg (REMERON) gabapentin 300 mg cap(s) (NEURONTIN) pantoprazole DR 40 mg tab(s) (PROTONIX) dextrose 40 % 15 g glucagon 1 mg injection (GLUCAGEN) dextrose 50% in water 25 mL syringe metoprolol tartrate (short acting) 12.5 mg tab(s) (LOPRESSOR) Problem List: Headache [R51] Spondylosis of lumbar region without myelopathy or radiculopathy [M47.816] Low back pain [M54.5] Hypertension [I10] Hyperlipidemia [E78.5] CAD (coronary artery disease) [I25.10] COPD (chronic obstructive pulmonary disease) (HCC) [J44.9] Tobacco use disorder [F17.200] Anxiety and depression [F41.9, F32.9] Blindness of right eye [H54.40] Bilateral shoulder pain [M25.511, M25.512] Neck pain [M54.2] Chronic low back pain [M54.5, G89.29] Vertebral compression fracture ([facility]) [M48.50XA] Lumbar spondylosis [M47.816] Lumbar radiculopathy [M54.16] Urinary retention [R33.9] DISPOSITION AND FOLLOW-UP [V999.01] SUMMARY [V999.95] Anticoagulation goal of INR 2 to 3 [Z51.81, Z79.01] Melena [K92.1] IBD (inflammatory bowel disease) [K52.9] Abdominal pain, other specified site [R10.9] Anxiety [F41.9] Urinary retention with incomplete bladder emptying [R33.9] Hyponatremia [E87.1] GI bleeding [D62] Anemia due to acute blood loss [D62] s/p left femoral endarterectomy/aortoil iac stenting 10/08/2019 [I73.9] PVD (peripheral vascular disease) ([facility]) [I73.9] Lupus anticoagulant disorder ([facility]) [D68.62] Smoker [F17.200] Lipoma of abdominal wall [D17.1] Ischaemic rest pain of lower extremity [I73.9] Illiterate [Z55.0] Pain in left shoulder [M25.512] Acute GI bleeding [K92.2] Hypotension due to blood loss [I95.89] Dysuria [R30.0] Lipoma of back [D17.1] Trigeminal neuralgia [G50.0] Headache, 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 Contact made with patient: No - Unable to leave message - entered next patient outreach date for the following business day in the Track Pt Outreach. End outreach Patient identified by name and . Discussed care with patient Hi my name is Aleja Barrett RN and I am calling from the [facility] on behalf of your PCP, DAIJA MORTON MD Because of the Covid-19 outbreak, I am calling to help make sure you are feeling well and that you have what you need to manage your well-being, since it is so important to stay home and take social distancing seriously to help protect your health at this time. If you have any health concerns, we will come up with a plan on how to proceed. SYMPTOMS: I'd like to ask some question about how you are managing your health. Would that be OK? Yes Do you have any new or worsening symptoms that you'd like to discuss with your doctor? No ACTION TAKEN: No action required - No symptoms reported. MEDICATIONS: Do you have any questions about taking your medication or which medications you should be on? No Do you need any medication refills at this time, including any of the medications you might take only when needed? No ACTION TAKEN: No action required SOCIAL: We would like to make sure you have what you need so that your basics needs are met - including your personal safety, food, housing and medications. Would you like to speak with a social work senior stereo compiler team lead to help give you support for any of these needs? No It can be normal to feel anxious or down during a time like this. Would you like to talk to a mental health professional about how you have been feeling? No ACTION TAKEN: No action taken Thank you for taking the time to talk with me today. We want to work with you to ensure that we are keeping your medical conditions well-controlled and to keep you healthy and out of the doctor's office or hospital. Our team would like to stay connected with you to make sure you are feeling well. Our calls should take 10 minutes or less, and we'll plan to call you weekly for the next few weeks to months while this outbreak continues to help make sure you stay well. Remember in the meantime, if you have concerns in between our calls, please call your PCP's office right away. Thank you. At present, these are our recommendations regarding the coronavirus (COVID-19) outbreak: ? Avoid public places as much as possible. ? Avoid close contact (within 6 feet) with others you don't live with, especially if they are sick. ? Stay home if you are sick. ? Wash your hands regularly for at least 20 seconds with soap and water. ? Wear a cloth mask in public places to help reduce community spread. ? Do not go to your Doctor's office unless instructed to do so. For any non-emergency symptoms, call your Doctor's office to get instructions on how to manage (we might recommend a telephone or virtual visit). For emergency symptoms, proceed to Emergency Department as usual but inform them of cough and fever symptoms SUSANNE if present (or call on the way if possible). Enter next patient outreach date for the following week on the same day of the week as today in the Track Pt Outreach section. Progress Notes ([facility]): Leidy Francisco LPN 10/07/2019 8:03 AM Signed Upcoming appointment: none, last appt 07/11/19 Medication request: Pending Prescriptions Disp Refills GABAPENTIN 300 MG CAPSULE 180 capsule 3 Sig: Take 1 capsule by mouth twice daily for 160 days. NAVI: No WARFARIN 5 MG TABLET 30 tablet 11 Sig: Take 1 tablet by mouth once daily. NAVI: No Please review and advise. Kaleb Ngo APRN.CNP 10/07/2019 8:09 AM Signed The following approved medication requests have been transmitted electronically. Signed Prescriptions Disp Refills gabapentin (NEURONTIN) 300 mg capsule 180 capsule 1 Sig: Take 1 capsule by mouth twice daily for 180 days. NAVI: No Authorizing Provider: [employer] (ACE) warfarin (COUMADIN) 5 mg tablet 30 tablet 11 Sig: Take 1 tablet by mouth once daily. NAVI: No Authorizing Provider: [employer] (ACE) Kaleb Ngo APRN.ACE Normal [facility] Culture, urine Bacteria identified Cx Nom (U) Presumptive E. coli [facility] Work Phone: Lower GI hemoglobin IA Ql (S tl) Stool Occult Blood (LACI) Positive [facility] Work Phone: Vital Signs Date Time Vital Sign Value Performing Clinician Kim johnson 12-12-2024 13:57-0400 Body mass index (BMI) [Ratio] 24.05 kg/m2 Anjel Older CONTOUR PATH TAPE MILL OPERATOR.ASSISTANT PASTRY CHEF Work Phone: [facility] 12-12-2024 13:57-0400 Body weight 71.76 kg Anjel Older CONTOUR PATH TAPE MILL OPERATOR.ASSISTANT PASTRY CHEF Work Phone: [facility] 12-12-2024 13:57-0400 Diastolic blood pressure 83 mm[Hg] Anjel Older CONTOUR PATH TAPE MILL OPERATOR.ASSISTANT PASTRY CHEF Work Phone: [facility] 12-12-2024 13:57-0400 Heart rate 65 /min Anjel Older CONTOUR PATH TAPE MILL OPERATOR.ASSISTANT PASTRY CHEF Work Phone: [facility] 12-12-2024 13:57-0400 Respiratory rate 20 /min Anjel Older CONTOUR PATH TAPE MILL OPERATOR.ASSISTANT PASTRY CHEF Work Phone: [facility] 12-12-2024 13:57-0400 SaO2% (BldA) [Mass fraction] 94 % Anjel Older CONTOUR PATH TAPE MILL OPERATOR.ASSISTANT PASTRY CHEF Work Phone: [facility] 12-12-2024 13:57-0400 Systolic blood pressure 185 mm[Hg] CONTOUR PATH TAPE MILL OPERATOR.ASSISTANT PASTRY CHEF Work Phone: [facility] 09-02-2024 20:48-0400 Heart rate 62 /min Dr. Daija Morton MD Work Phone: [facility] 09-02-2024 19:34-0400 Body temperature 97.5 [degF] Dr. Daija Morton MD Work Phone: [facility] 09-02-2024 19:34-0400 Diastolic blood pressure 77 mm[Hg] Dr. Daija Morton MD Work Phone: [facility] 09-02-2024 19:34-0400 Respiratory rate 16 /min Dr. Daija Morton MD Work Phone: [facility] 09-02-2024 19:34-0400 SaO2% (BldA) [Mass fraction] 92 % Dr. Daija Morton MD Work Phone: 1(088)072-882304 [place] [address] 09-02-2024 19:34-0400 Systolic blood pressure 146 mm[Hg] Dr. Daija Morton MD Work Phone: 5(547)861-779304 [place] [address] 09-02-2024 10:22-0400 Body height 172.[address] Daija Morton MD Work Phone: 0(986)847-714404 [place] [address] 09-02-2024 10:22-0400 Body weight 68.[address] Daija Motron MD Work Phone: 2(292)738-618104 [place] [address] 09-02-2024 06:00-0400 Body mass index (BMI) [Ratio] 22.8 kg/m2 Dr. Daija Morton MD Work Phone: 5(934)178-923804 [place] [address] 09-01-2024 22:41-0400 Inhaled oxygen flow rate 2 L/min Dr. Daija Morton MD Work Phone: 6(689)801-197504 [place] [address] 08-25-2024 18:11-0400 Diastolic blood pressure 90 mm[Hg] Dr. Daija Morton MD Work Phone: 2(614)232-826004 [place] [address] 08-25-2024 18:11-0400 Heart rate 66 /min Dr. Daija Morton MD Work Phone: 1(672)631-241204 [place] [address] 08-25-2024 18:11-0400 Respiratory rate 24 /min Dr. Daija Morton MD Work Phone: 5(484)739-252604 [place] [address] 08-25-2024 18:11-0400 SaO2% (BldA) [Mass fraction] 93 % Dr. Daija Morton MD Work Phone: 8(853)782-479804 [place] [address] 08-25-2024 18:11-0400 Systolic blood pressure 197 mm[Hg] Dr. Daija Morton MD Work Phone: 5(252)077-627204 [place] [address] 08-25-2024 16:12-0400 Body height 165.[address] Daija Morton MD Work Phone: 2(887)452-097104 [place] [address] 08-25-2024 16:12-0400 Body temperature 97.7 [degF] Dr. Daija Morton MD Work Phone: [facility] 03-23-2024 13:19-0400 Diastolic blood pressure 98 mm[Hg] Pura Praisler-Wood CONTOUR PATH TAPE MILL OPERATOR.ASSISTANT PASTRY CHEF Work Phone: [facility] 03-23-2024 13:19-0400 Systolic blood pressure 230 mm[Hg] Pura Praisler-Wood CONTOUR PATH TAPE MILL OPERATOR.ASSISTANT PASTRY CHEF Work Phone: [facility] 03-23-2024 13:12-0400 Body mass index (BMI) [Ratio] 20.92 kg/m2 Pura Praisler-Wood CONTOUR PATH TAPE MILL OPERATOR.ASSISTANT PASTRY CHEF Work Phone: [facility] 03-23-2024 13:12-0400 Body temperature 96.91 [degF] Pura Praisler-Wood CONTOUR PATH TAPE MILL OPERATOR.ASSISTANT PASTRY CHEF Work Phone: [facility] 03-23-2024 13:12-0400 Body weight 62.4 kg Pura Praisler-Wood CONTOUR PATH TAPE MILL OPERATOR.ASSISTANT PASTRY CHEF Work Phone: [facility] 03-23-2024 13:12-0400 Heart rate 74 /min Pura Praisler-Wood CONTOUR PATH TAPE MILL OPERATOR.ASSISTANT PASTRY CHEF Work Phone: [facility] 03-23-2024 13:12-0400 Respiratory rate 16 /min Pura Praisler-Wood CONTOUR PATH TAPE MILL OPERATOR.ASSISTANT PASTRY CHEF Work Phone: [facility] 11-21-2023 12:49-0400 Diastolic blood pressure 94 mm[Hg] Rebekah Bogner PA-C Work Phone: [facility] 11-21-2023 12:49-0400 Systolic blood pressure 200 mm[Hg] Rebekah Bogner PA-C Work Phone: [facility] 11-21-2023 12:42-0400 Body mass index (BMI) [Ratio] 22.96 kg/m2 Rebekah Bogner PA-C Work Phone: [facility] 11-21-2023 12:42-0400 Body weight 68.49 kg Rebekah Bogner PA-C Work Phone: [facility] 11-21-2023 12:42-0400 Heart rate 60 /min Rebekah Bogner PA-C Work Phone: [facility] 11-21-2023 12:42-0400 Respiratory rate 16 /min Rebekah Bogner PA-C Work Phone: [facility] 11-21-2023 12:42-0400 SaO2% (BldA) [Mass fraction] 92 % Rebekah Bogner PA-C Work Phone: [facility] 08-02-2023 19:35-0500 Inhaled oxygen flow rate 2 L/min Dr. Daija Morton Work Phone: [facility] 08-02-2023 19:27-0500 Body temperature 97.9 [degF] Dr. Daija Morton Work Phone: [facility] 08-02-2023 19:27-0500 Diastolic blood pressure 59 mm[Hg] Dr. Daija Morton Work Phone: [facility] 08-02-2023 19:27-0500 Heart rate 98 /min Dr. Daija Morton Work Phone: [facility] 08-02-2023 19:27-0500 Respiratory rate 16 /min Dr. Daija Morton Work Phone: [facility] 08-02-2023 19:27-0500 SaO2% (BldA) [Mass fraction] 93 % Dr. Daija Morton Work Phone: [facility] 08-02-2023 19:27-0500 Systolic blood pressure 149 mm[Hg] Dr. Daija Morton Work Phone: [facility] 07-31-2023 10:17-0500 Body height 172.[address] Daija Morton Work Phone: [facility] 07-31-2023 10:17-0500 Body weight 67.[address] Daija Morton Work Phone: 5(097)105-041102 [place] [address] 07-31-2023 00:57-0500 Body mass index (BMI) [Ratio] 22.4 kg/m2 Dr. Daija Morton Work Phone: 1(317)944-250304 [place] [address] 07-31-2023 00:05-0500 Body temperature 99 [degF] Dr. Daija Morton Work Phone: 8(153)439-760004 [place] [address] 07-31-2023 00:05-0500 Diastolic blood pressure 107 mm[Hg] Dr. Daija Morton Work Phone: 3(324)389-983104 [place] [address] 07-31-2023 00:05-0500 Heart rate 107 /min Dr. Daija Morton Work Phone: 6(410)237-321904 [place] [address] 07-31-2023 00:05-0500 Respiratory rate 30 /min Dr. Daija Morton Work Phone: 7(646)801-201604 [place] [address] 07-31-2023 00:05-0500 SaO2% (BldA) [Mass fraction] 98 % Dr. Daija Morton Work Phone: 0(720)927-824104 [place] [address] 07-31-2023 00:05-0500 Systolic blood pressure 173 mm[Hg] Dr. Daija Morton Work Phone: 7(235)664-804504 [place] [address] 07-30-2023 23:25-0500 Inhaled oxygen flow rate 3 L/min Dr. Daija Morton Work Phone: 3(866)947-894704 [place] [address] 07-30-2023 20:30-0500 Body height 172.[address] Daija Morton Work Phone: 9(210)792-225004 [place] [address] 07-30-2023 20:30-0500 Body mass index (BMI) [Ratio] 24.2 kg/m2 Dr. Daija Morton Work Phone: 5(682)442-192404 [place] [address] 07-30-2023 20:30-0500 Body weight 72.[address] Daija Morton Work Phone: 8(039)754-967504 [place] [address] 07-26-2023 12:10-0500 Diastolic blood pressure 59 mm[Hg] Dr. Daija Morton Work Phone: 7(087)339-828604 [place] [address] 07-26-2023 12:10-0500 Heart rate 67 /min Dr. Daija Morton Work Phone: 7(955)073-072404 [place] [address] 07-26-2023 12:10-0500 Respiratory rate 18 /min Dr. Daija Morton Work Phone: 6(457)558-470204 [place] [address] 07-26-2023 12:10-0500 SaO2% (BldA) [Mass fraction] 90 % Dr. Daija Morton Work Phone: 3(595)788-134404 [place] [address] 07-26-2023 12:10-0500 Systolic blood pressure 107 mm[Hg] Dr. Daija Morton Work Phone: 6(243)127-344804 [place] [address] 07-26-2023 08:38-0500 Body temperature 97.8 [degF] Dr. Daija Morton Work Phone: 4(515)647-681104 [place] [address] 07-26-2023 06:59-0500 Inhaled oxygen flow rate 2 L/min Dr. Daija Morton Work Phone: 0(639)005-199404 [place] [address] 07-25-2023 16:00-0500 Body weight 51.[address] Daija Morton Work Phone: 8(613)641-223104 [place] [address] 07-24-2023 21:55-0500 Body mass index (BMI) [Ratio] 17.4 kg/m2 Dr. Daija Morton Work Phone: 5(091)550-575904 [place] [address] 07-24-2023 21:13-0500 Diastolic blood pressure 89 mm[Hg] Dr. Daija Morton Work Phone: 4(883)623-512604 [place] [address] 07-24-2023 21:13-0500 Heart rate 65 /min Dr. Daija Morton Work Phone: 6(902)103-940804 [place] [address] 07-24-2023 21:13-0500 Respiratory rate 16 /min Dr. Daija Morton Work Phone: 3(933)768-604704 [place] [address] 07-24-2023 21:13-0500 SaO2% (BldA) [Mass fraction] 91 % Dr. Daija Morton Work Phone: 6(845)499-865804 [place] [address] 07-24-2023 21:13-0500 Systolic blood pressure 210 mm[Hg] Dr. aDija Morton Work Phone: 4(326)388-619804 [place] [address] 07-24-2023 17:27-0500 Body mass index (BMI) [Ratio] 22.8 kg/m2 Dr. Daija Morton Work Phone: 5(618)837-403004 [place] [address] 07-24-2023 17:27-0500 Body weight [address] Daija Morton Work Phone: 3(708)255-639204 [place] [address] 07-24-2023 16:44-0500 Body height 172.[address] Daija Morton Work Phone: 2(336)300-605804 [place] [address] 07-24-2023 16:44-0500 Body temperature 96.7 [degF] Dr. Daija Morton Work Phone: 8(687)561-194504 [place] [address] 04-04-2023 11:37-0400 Diastolic blood pressure 79 mm[Hg] Dr. Daija Morton Work Phone: 8(255)239-642404 [place] [address] 04-04-2023 11:37-0400 Heart rate 44 /min Dr. Daija Morton Work Phone: 8(712)625-890704 [place] [address] 04-04-2023 11:37-0400 Systolic blood pressure 188 mm[Hg] Dr. Daija Morton Work Phone: 1(575)277-836004 [place] [address] 04-04-2023 10:02-0400 Body temperature 97.6 [degF] Dr. Daija Morton Work Phone: 1(214)111-746404 [place] [address] 04-04-2023 10:02-0400 Respiratory rate 18 /min Dr. Daija Morton Work Phone: 0(465)981-552904 [place] [address] 04-04-2023 10:02-0400 SaO2% (BldA) [Mass fraction] 92 % Dr. Daija Morton Work Phone: 3(299)910-078204 [place] [address] 04-03-2023 15:53-0400 Inhaled oxygen flow rate 2 L/min Dr. Daija Morton Work Phone: 0(909)129-950704 [place] [address] 03-31-2023 14:20-0400 Body mass index (BMI) [Ratio] 20.5 kg/m2 Dr. Daija Morton Work Phone: 6(761)635-344304 [place] [address] 03-31-2023 14:20-0400 Body weight [address] Daija Morton Work Phone: 7(907)326-093504 [place] [address] 03-31-2023 09:57-0400 Body height 175.[address] Daiaj Morton Work Phone: 0(372)754-208304 [place] [address] 03-30-2023 20:26-0400 Body temperature 96.7 [degF] Dr. Daija Morton Work Phone: 8(658)058-967604 [place] [address] 03-30-2023 20:26-0400 Diastolic blood pressure 78 mm[Hg] Dr. Daija Morton Work Phone: 6(668)542-984504 [place] [address] 03-30-2023 20:26-0400 Heart rate 71 /min Dr. Daija Morton Work Phone: 3(805)887-021204 [place] [address] 03-30-2023 20:26-0400 Respiratory rate 18 /min Dr. Daija oMrton Work Phone: 0(529)873-103204 [place] [address] 03-30-2023 20:26-0400 SaO2% (BldA) [Mass fraction] 97 % Dr. Daija Morton Work Phone: 3(946)985-281104 [place] [address] 03-30-2023 20:26-0400 Systolic blood pressure 181 mm[Hg] Dr. Daija Morton Work Phone: 0(864)796-507004 [place] [address] 03-30-2023 14:10-0400 Body height 172.[address] Daija Morton Work Phone: 7(306)731-676704 [place] [address] 03-29-2023 19:22-0400 Body mass index (BMI) [Ratio] 21.9 kg/m2 Dr. Daija Morton Work Phone: 6(568)959-213804 [place] [address] 03-29-2023 19:22-0400 Body weight 65.[address] Daija Morton Work Phone: 2(969)704-064504 [place] [address] 03-29-2023 19:20-0400 Diastolic blood pressure 80 mm[Hg] Dr. Daija Morton Work Phone: 0(066)967-899004 [place] [address] 03-29-2023 19:20-0400 Heart rate 84 /min Dr. Daija Morton Work Phone: 3(808)568-298804 [place] [address] 03-29-2023 19:20-0400 Respiratory rate 18 /min Dr. Daija Morton Work Phone: 9(682)789-247804 [place] [address] 03-29-2023 19:20-0400 SaO2% (BldA) [Mass fraction] 92 % Dr. Daija Morton Work Phone: 5(165)971-540804 [place] [address] 03-29-2023 19:20-0400 Systolic blood pressure 195 mm[Hg] Dr. Daija Morton Work Phone: 7(628)289-713504 [address] [place] [address] 03-29-2023 18:17-0400 Body temperature 97.6 [degF] Dr. Daija Morton Work Phone: [phone] [place] [address] 02-25-2023 19:41-0400 Diastolic blood pressure 87 mm[Hg] Dr. Daija Morton Work Phone: [phone] [place] [address] 02-25-2023 19:41-0400 Heart rate 67 /min Dr. Daija Morton Work Phone: [phone](828)[phone] [place] [address] 02-25-2023 19:41-0400 Respiratory rate 15 /min Dr. Daija Morton Work Phone: 0(935)[phone] [place] [address] 02-25-2023 19:41-0400 SaO2% (BldA) [Mass fraction] 97 % Dr. Daija Morton Work Phone: 7(095)[phone] [place] [address] 02-25-2023 19:41-0400 Systolic blood pressure 193 mm[Hg] Dr. Daija Morton Work Phone: 3(763)[phone] [place] [address] 02-25-2023 19:37-0400 Body mass index (BMI) [Ratio] 22.4 kg/m2 Dr. Daija Morton Work Phone: 8(418)[phone] [place] [address] 02-25-2023 19:37-0400 Body weight 67.[address] Daija Morton Work Phone: [facility] 02-25-2023 17:22-0400 Body temperature 97 [degF] Dr. Daija Morton Work Phone: [facility] 02-18-2023 01:56-0400 Diastolic blood pressure 113 mm[Hg] [facility] 02-18-2023 01:56-0400 Heart rate 88 /min [facility] 02-18-2023 01:56-0400 Respiratory rate 16 /min [facility] 02-18-2023 01:56-0400 Systolic blood pressure 157 mm[Hg] [facility] 02-18-2023 01:00-0400 SaO2% (BldA) [Mass fraction] 98 % [facility] 02-17-2023 21:35-0400 Body mass index (BMI) [Ratio] 21.5 kg/m2 [facility] 02-17-2023 21:35-0400 Body weight 66.13 kg [facility] 02-17-2023 21:32-0400 Body height 175.26 cm [facility] 02-17-2023 21:32-0400 Body temperature 96.4 [degF] [facility] 12-31-2022 15:16-0400 Body height 173 cm [facility] 12-31-2022 15:16-0400 Body mass index (BMI) [Ratio] 21.7 kg/m2 [facility] 12-31-2022 15:16-0400 Body temperature 96.6 [degF] [facility] 12-31-2022 15:16-0400 Body weight 65.2 kg [facility] 12-31-2022 15:16-0400 Diastolic blood pressure 66 mm[Hg] [facility] 12-31-2022 15:16-0400 Heart rate 75 /min [facility] 12-31-2022 15:16-0400 Respiratory rate 15 /min [facility] 12-31-2022 15:16-0400 SaO2% (BldA) [Mass fraction] 93 % [facility] 12-31-2022 15:16-0400 Systolic blood pressure 118 mm[Hg] [facility] 12-26-2022 14:04-0400 Diastolic blood pressure 90 mm[Hg] Ryan May MD Work Phone: [facility] 12-26-2022 14:04-0400 Heart rate 50 /min Ryan May MD Work Phone: [facility] 12-26-2022 14:04-0400 Systolic blood pressure 207 mm[Hg] Ryan May MD Work Phone: [facility] 10-22-2022 21:40-0400 Diastolic Blood Pressure Non-Invasive [address] PRIYANKA FRANCO MD [facility] 10-22-2022 21:40-0400 Heart rate 88 /min DR PRIYANKA FRANCO MD [facility] 10-22-2022 21:40-0400 Respiratory rate 20 /min DR PRIYANKA FRANCO MD [facility] 10-22-2022 21:40-0400 Systolic Blood Pressure Non-Invasive [address] PRIYANKA FRANCO MD [facility] 10-22-2022 19:59-[address] PRIYANKA FRANCO MD [facility] 10-22-2022 19:59-0400 Body temperature 98.6 [degF] DR PRIYANKA FRANCO MD [facility] 10-22-2022 19:59-0400 Diastolic Blood Pressure Non-Invasive [address] PRIYANKA FRANCO MD [facility] 10-22-2022 19:59-0400 Heart rate 97 /min DR PRIYANKA FRANCO MD [facility] 10-22-2022 19:59-0400 Respiratory rate 21 /min DR PRIYANKA FRANCO MD [facility] 10-22-2022 19:59-0400 Systolic Blood Pressure Non-Invasive [address] PRIYANKA FRANCO MD [facility] 10-21-2022 18:30-0400 Body height 172.72 cm [facility] 10-21-2022 18:30-0400 Body temperature 97.5 [degF] [facility] 10-21-2022 18:30-0400 Diastolic blood pressure 88 mm[Hg] [facility] 10-21-2022 18:30-0400 Heart rate 99 /min [facility] 10-21-2022 18:30-0400 Respiratory rate 16 /min [facility] 10-21-2022 18:30-0400 SaO2% (BldA) [Mass fraction] 96 % [facility] 10-21-2022 18:30-0400 Systolic blood pressure 168 mm[Hg] [facility] 08-27-2022 10:51-0500 Diastolic blood pressure 91 mm[Hg] Daija Morton MD Work Phone: [facility] 08-27-2022 10:51-0500 Heart rate 69 /min Daija Morton MD Work Phone: [facility] 08-27-2022 10:51-0500 Systolic blood pressure 212 mm[Hg] Daija Morton MD Work Phone: [facility] 08-27-2022 10:47-0500 Body temperature 97 [degF] Daija Morton MD Work Phone: [facility] 08-27-2022 10:47-0500 Body weight 71.22 kg Daija Morton MD Work Phone: [facility] 08-27-2022 10:47-0500 Respiratory rate 28 /min Daija Morton MD Work Phone: [facility] 08-27-2022 10:47-0500 SaO2% (BldA) [Mass fraction] 95 % Daija Morton MD Work Phone: [facility] 03-10-2022 10:10-0400 Diastolic blood pressure 90 mm[Hg] Anjel Older CONTOUR PATH TAPE MILL OPERATOR.ASSISTANT PASTRY CHEF Work Phone: [facility] 03-10-2022 10:10-0400 Heart rate 88 /min Anjel Older CONTOUR PATH TAPE MILL OPERATOR.ASSISTANT PASTRY CHEF Work Phone: [facility] 03-10-2022 10:10-0400 Respiratory rate 16 /min Anjel Older CONTOUR PATH TAPE MILL OPERATOR.ASSISTANT PASTRY CHEF Work Phone: [facility] 03-10-2022 10:10-0400 Systolic blood pressure 158 mm[Hg] Anjel Older CONTOUR PATH TAPE MILL OPERATOR.ASSISTANT PASTRY CHEF Work Phone: [facility] 03-08-2022 23:13-0400 Diastolic blood pressure 93 mm[Hg] Dr. Daija Morton Work Phone: [facility] Work Phone: 03-08-2022 23:13-0400 Heart rate 71 /min Dr. Daija Morton Work Phone: [facility] Work Phone: 03-08-2022 23:13-0400 Inhaled oxygen flow rate 3 L/min Dr. Daija Morton Work Phone: [facility] Work Phone: 03-08-2022 23:13-0400 Respiratory rate 16 /min Dr. Daija Morton Work Phone: [facility] Work Phone: 03-08-2022 23:13-0400 SaO2% (BldA) [Mass fraction] 96 % Dr. Daija Morton Work Phone: [facility] Work Phone: 03-08-2022 23:13-0400 Systolic blood pressure 178 mm[Hg] Dr. Daija Morton Work Phone: [facility] Work Phone: 03-08-2022 17:31-0400 Body height 172.[address] Daija Morton Work Phone: [facility] Work Phone: 03-08-2022 17:31-0400 Body mass index (BMI) [Ratio] 20.5 kg/m2 Dr. Daija Morton Work Phone: [facility] Work Phone: 03-08-2022 17:31-0400 Body temperature 97.6 [degF] Dr. Daija Morton Work Phone: [facility] Work Phone: 03-08-2022 17:31-0400 Body weight 61.[address] Daija Morton Work Phone: [facility] Work Phone: 03-07-2022 17:28-0400 Respiratory rate 18 /min Dr. Daija Morton Work Phone: [facility] Work Phone: 03-07-2022 15:23-0400 Body height 172.[address] Daija Morton Work Phone: [facility] Work Phone: 03-07-2022 15:23-0400 Body mass index (BMI) [Ratio] 20.5 kg/m2 Dr. Daija Morton Work Phone: [facility] Work Phone: 03-07-2022 15:23-0400 Body temperature 97.4 [degF] Dr. Daija Morton Work Phone: [facility] Work Phone: 03-07-2022 15:23-0400 Body weight 61.[address] Daija Morton Work Phone: [facility] Work Phone: 03-07-2022 15:23-0400 Diastolic blood pressure 88 mm[Hg] Dr. Daija Morton Work Phone: [facility] Work Phone: 03-07-2022 15:23-0400 Heart rate 84 /min Dr. Daija Morton Work Phone: [facility] Work Phone: 03-07-2022 15:23-0400 SaO2% (BldA) [Mass fraction] 93 % Dr. Daija Morton Work Phone: [facility] Work Phone: 03-07-2022 15:23-0400 Systolic blood pressure 193 mm[Hg] Dr. Daija Morton Work Phone: [facility] Work Phone: 03-02-2022 19:05-0400 Diastolic blood pressure 81 mm[Hg] Dr. Daija Morton Work Phone: [facility] Work Phone: 03-02-2022 19:05-0400 Heart rate 56 /min Dr. Daija Morton Work Phone: [facility] Work Phone: 03-02-2022 19:05-0400 Respiratory rate 18 /min Dr. Daija Morton Work Phone: [facility] Work Phone: 03-02-2022 19:05-0400 SaO2% (BldA) [Mass fraction] 92 % Dr. Daija Morton Work Phone: [facility] Work Phone: 03-02-2022 19:05-0400 Systolic blood pressure 209 mm[Hg] Dr. Daija Morton Work Phone: [facility] Work Phone: 03-02-2022 17:41-0400 Body temperature 97.5 [degF] Dr. Daija Morton Work Phone: [facility] Work Phone: 03-02-2022 15:10-0400 Body height 172.[address] Daija Morton Work Phone: [facility] Work Phone: 03-02-2022 15:10-0400 Body mass index (BMI) [Ratio] 23.5 kg/m2 Dr. Daija Morton Work Phone: [facility] Work Phone: 03-02-2022 15:10-0400 Body weight 70.[address] Daija Morton Work Phone: [facility] Work Phone: 01-31-2022 13:59-0400 Body height 172.7 cm Ryan May MD Work Phone: [facility] 01-31-2022 13:59-0400 Body weight 68.49 kg Ryan May MD Work Phone: [facility] 01-31-2022 13:59-0400 Diastolic blood pressure 99 mm[Hg] Ryan May MD Work Phone: [facility] 01-31-2022 13:59-0400 Systolic blood pressure 168 mm[Hg] Ryan May MD Work Phone: [facility] 01-28-2022 15:53-0400 Diastolic blood pressure 88 mm[Hg] Dr. Daija Morton Work Phone: [facility] Work Phone: 01-28-2022 15:53-0400 Heart rate 54 /min Dr. Daija Morton Work Phone: [facility] Work Phone: 01-28-2022 15:53-0400 Respiratory rate 20 /min Dr. Daija Morton Work Phone: [facility] Work Phone: 01-28-2022 15:53-0400 SaO2% (BldA) [Mass fraction] 97 % Dr. Daija Morton Work Phone: [facility] Work Phone: 01-28-2022 15:53-0400 Systolic blood pressure 200 mm[Hg] Dr. Daija Morton Work Phone: [facility] Work Phone: 01-28-2022 14:03-0400 Body height 172.[address] Daija Morton Work Phone: [facility] Work Phone: 01-28-2022 14:03-0400 Body mass index (BMI) [Ratio] 22.9 kg/m2 Dr. Daija Morton Work Phone: [facility] Work Phone: 01-28-2022 14:03-0400 Body temperature 96.8 [degF] Dr. Daija Morton Work Phone: [facility] Work Phone: 01-28-2022 14:03-0400 Body weight 68.[address] Daija Morton Work Phone: [facility] Work Phone: 01-28-2022 11:41-0400 Diastolic blood pressure 92 mm[Hg] Anjel Older CONTOUR PATH TAPE MILL OPERATOR.ASSISTANT PASTRY CHEF Work Phone: [facility] 01-28-2022 11:41-0400 Heart rate 56 /min Anjel Older CONTOUR PATH TAPE MILL OPERATOR.ASSISTANT PASTRY CHEF Work Phone: [facility] 01-28-2022 11:41-0400 Systolic blood pressure 200 mm[Hg] Anjel Older CONTOUR PATH TAPE MILL OPERATOR.ASSISTANT PASTRY CHEF Work Phone: [facility] 01-28-2022 10:57-0400 Body weight 68.49 kg Anjel Older CONTOUR PATH TAPE MILL OPERATOR.ASSISTANT PASTRY CHEF Work Phone: [facility] 01-28-2022 10:57-0400 Respiratory rate 16 /min Anjel Older CONTOUR PATH TAPE MILL OPERATOR.ASSISTANT PASTRY CHEF Work Phone: [facility] 01-20-2022 13:23-0400 Diastolic blood pressure 102 mm[Hg] Ye Coello MD Work Phone: [facility] 01-20-2022 13:23-0400 Heart rate 61 /min Ye Coello MD Work Phone: [facility] 01-20-2022 13:23-0400 SaO2% (BldA) [Mass fraction] 94 % Ye Coello MD Work Phone: [facility] 01-20-2022 13:23-0400 Systolic blood pressure 172 mm[Hg] Ye Coello MD Work Phone: [facility] 01-14-2022 10:26-0400 Body temperature 98.2 [degF] Harriett Albert CONTOUR PATH TAPE MILL OPERATOR.BELT LOOP MACHINE OPERATOR Work Phone: [facility] 01-14-2022 10:26-040 Body weight 69.67 kg Harriett Albert CONTOUR PATH TAPE MILL OPERATOR.BELT LOOP MACHINE OPERATOR Work Phone: [facility] 01-14-2022 10:26-0400 Diastolic blood pressure 80 mm[Hg] Harriett Albert CONTOUR PATH TAPE MILL OPERATOR.BELT LOOP MACHINE OPERATOR Work Phone: [facility] 01-14-2022 10:26-0400 Heart rate 78 /min Harriett Albert CONTOUR PATH TAPE MILL OPERATOR.BELT LOOP MACHINE OPERATOR Work Phone: [facility] 01-14-2022 10:26-0400 Respiratory rate 16 /min Harriett Albert CONTOUR PATH TAPE MILL OPERATOR.BELT LOOP MACHINE OPERATOR Work Phone: [facility] 01-14-2022 10:26-0400 SaO2% (BldA) [Mass fraction] 95 % Harriett Albert CONTOUR PATH TAPE MILL OPERATOR.BELT LOOP MACHINE OPERATOR Work Phone: [facility] 01-14-2022 10:26-0400 Systolic blood pressure 186 mm[Hg] Harriett Albert CONTOUR PATH TAPE MILL OPERATOR.BELT LOOP MACHINE OPERATOR Work Phone: [facility] 11-30-2021 15:02-0400 Heart rate 75 /min Dr. Daija Morton Work Phone: [facility] Work Phone: 11-30-2021 15:02-0400 Respiratory rate 17 /min Dr. Daija Morton Work Phone: [facility] Work Phone: 11-30-2021 13:57-0400 Body temperature 97.4 [degF] Dr. Daija Morton Work Phone: [facility] Work Phone: 11-30-2021 13:57-0400 Diastolic blood pressure 67 mm[Hg] Dr. Daija Morton Work Phone: [facility] Work Phone: 11-30-2021 13:57-0400 SaO2% (BldA) [Mass fraction] 93 % Dr. Daija Morton Work Phone: [facility] Work Phone: 11-30-2021 13:57-0400 Systolic blood pressure 161 mm[Hg] Dr. Daija Morton Work Phone: [facility] Work Phone: 11-30-2021 11:25-0400 Inhaled oxygen flow rate 3 L/min Dr. Daija Morton Work Phone: [facility] Work Phone: 11-29-2021 12:48-0400 Body height 172.[address] Daija Morton Work Phone: [facility] Work Phone: 11-29-2021 12:48-0400 Body weight 71.[address] Daija Morton Work Phone: [facility] Work Phone: 11-27-2021 05:25-0400 Body mass index (BMI) [Ratio] 24 kg/m2 Dr. Daija Morton Work Phone: [facility] Work Phone: 11-25-2021 21:36-0400 Body temperature 97.8 [degF] Dr. Daija Morton Work Phone: [facility] Work Phone: 11-25-2021 21:36-0400 Diastolic blood pressure 40 mm[Hg] Dr. Daija Morton Work Phone: [facility] Work Phone: 11-25-2021 21:36-0400 Heart rate 66 /min Dr. Daija Morton Work Phone: [facility] Work Phone: 11-25-2021 21:36-0400 Respiratory rate 16 /min Dr. Daija Morton Work Phone: [facility] Work Phone: 11-25-2021 21:36-0400 SaO2% (BldA) [Mass fraction] 96 % Dr. Daija Morton Work Phone: [facility] Work Phone: 11-25-2021 21:36-0400 Systolic blood pressure 133 mm[Hg] Dr. Daija Morton Work Phone: [facility] Work Phone: 11-25-2021 17:29-0400 Body height 172.[address] Daija Morton Work Phone: [facility] Work Phone: 11-25-2021 17:29-0400 Body mass index (BMI) [Ratio] 24.7 kg/m2 Dr. Daija Morton Work Phone: [facility] Work Phone: 11-25-2021 17:29-0400 Body weight 73.[address] Daija Morton Work Phone: [facility] Work Phone: 11-16-2021 14:37-0400 Body height 172.7 cm Estephania Pierre APRN.ASSISTANT PASTRY CHEF Work Phone: [facility] 11-16-2021 14:37-0400 Body weight 71.67 kg Estephania Pierre APRN.ASSISTANT PASTRY CHEF Work Phone: [facility] 11-16-2021 14:37-0400 Diastolic blood pressure 68 mm[Hg] Estephania Pierre APRN.ASSISTANT PASTRY CHEF Work Phone: [facility] 11-16-2021 14:37-0400 Heart rate 64 /min Estephaniajuice Pierre CONTOUR PATH TAPE MILL OPERATOR.ASSISTANT PASTRY CHEF Work Phone: [facility] 11-16-2021 14:37-0400 SaO2% (BldA) [Mass fraction] 100 % Estephaniajuice Pierre CONTOUR PATH TAPE MILL OPERATOR.ASSISTANT PASTRY CHEF Work Phone: [facility] 11-16-2021 14:37-0400 Systolic blood pressure 162 mm[Hg] Estephania Ignacio CONTOUR PATH TAPE MILL OPERATOR.ASSISTANT PASTRY CHEF Work Phone: [facility] 11-08-2021 12:50-0400 Heart rate 73 /min Respiratory Wstr Work Phone: [facility] 11-08-2021 12:50-0400 Respiratory rate 14 /min Respiratory Wstr Work Phone: [facility] 11-08-2021 12:50-0400 SaO2% (BldA) [Mass fraction] 97 % Respiratory Wstr Work Phone: [facility] 11-05-2021 11:22-0400 Body weight 70.31 kg Emilie Shania PA-C Work Phone: [facility] 11-05-2021 11:22-0400 Diastolic blood pressure 68 mm[Hg] Emilie Shania PA-C Work Phone: [facility] 11-05-2021 11:22-0400 Heart rate 71 /min Emilie Shania PA-C Work Phone: [facility] 11-05-2021 11:22-0400 Respiratory rate 20 /min Emilie Shania PA-C Work Phone: [facility] 11-05-2021 11:22-0400 SaO2% (BldA) [Mass fraction] 99 % Emilie Shania PA-C Work Phone: [facility] 11-05-2021 11:22-0400 Systolic blood pressure 140 mm[Hg] Emilie Shania PA-C Work Phone: [facility] 10-21-2021 11:30-0400 Diastolic blood pressure 65 mm[Hg] Mi Nurse Work Phone: [facility] 10-21-2021 11:30-0400 Heart rate 81 /min Mi Nurse Work Phone: [facility] 10-21-2021 11:30-0400 Systolic blood pressure 155 mm[Hg] Mi Nurse Work Phone: [facility] 10-13-2021 13:00-0400 Body height 172.7 cm Ye Coello MD Work Phone: [facility] 10-13-2021 13:00-0400 Body weight 71.67 kg Ye Coello MD Work Phone: [facility] 10-13-2021 13:00-0400 Diastolic blood pressure 93 mm[Hg] Ye Coello MD Work Phone: [facility] 10-13-2021 13:00-0400 Heart rate 66 /min Ye Coello MD Work Phone: [facility] 10-13-2021 13:00-0400 Systolic blood pressure 217 mm[Hg] Ye Coello MD Work Phone: [facility] 10-08-2021 17:14-0400 Diastolic blood pressure 62 mm[Hg] Dr. Daija Morton Work Phone: [facility] Work Phone: 10-08-2021 17:14-0400 Heart rate 58 /min Dr. Daija Morton Work Phone: [facility] Work Phone: 10-08-2021 17:14-0400 Respiratory rate 18 /min Dr. Daija Morton Work Phone: [facility] Work Phone: 10-08-2021 17:14-0400 SaO2% (BldA) [Mass fraction] 98 % Dr. Daija Morton Work Phone: [facility] Work Phone: 10-08-2021 17:14-0400 Systolic blood pressure 149 mm[Hg] Dr. Daija Morton Work Phone: [facility] Work Phone: 10-08-2021 14:12-0400 Body height 172.[address] Daija Morton Work Phone: [facility] Work Phone: 10-08-2021 14:12-0400 Body mass index (BMI) [Ratio] 24.7 kg/m2 Dr. Daija Morton Work Phone: [facility] Work Phone: 10-08-2021 14:12-0400 Body temperature 98.1 [degF] Dr. Daija Morton Work Phone: [facility] Work Phone: 10-08-2021 14:12-0400 Body weight 73.[address] Daija Morton Work Phone: [facility] Work Phone: 10-07-2021 11:17-0400 Body temperature 97.59 [degF] Anjel Older CONTOUR PATH TAPE MILL OPERATOR.ASSISTANT PASTRY CHEF Work Phone: [facility] 10-07-2021 11:17-0400 Body weight 70.31 kg Anjel Older CONTOUR PATH TAPE MILL OPERATOR.ASSISTANT PASTRY CHEF Work Phone: [facility] 10-07-2021 11:17-0400 Diastolic blood pressure 90 mm[Hg] Anjel Older CONTOUR PATH TAPE MILL OPERATOR.ASSISTANT PASTRY CHEF Work Phone: [facility] 10-07-2021 11:17-0400 Heart rate 67 /min Anjel Older CONTOUR PATH TAPE MILL OPERATOR.ASSISTANT PASTRY CHEF Work Phone: [facility] 10-07-2021 11:17-0400 Respiratory rate 12 /min Anjel Older CONTOUR PATH TAPE MILL OPERATOR.ASSISTANT PASTRY CHEF Work Phone: [facility] 10-07-2021 11:17-0400 SaO2% (BldA) [Mass fraction] 96 % Anjel Older CONTOUR PATH TAPE MILL OPERATOR.ASSISTANT PASTRY CHEF Work Phone: [facility] 10-07-2021 11:17-0400 Systolic blood pressure 178 mm[Hg] Anjel Omi SOTO.ASSISTANT PASTRY CHEF Work Phone: [facility] 09-29-2021 16:20-0400 Body temperature 98.24 [degF] DR PRIYANKA FRANCO MD [facility] 09-29-2021 16:20-0400 Diastolic blood pressure 91 mm[Hg] DR PRIYANKA FRANCO MD [facility] 09-29-2021 16:20-0400 Heart rate 80 /min DR PRIYANKA FRANCO MD [facility] 09-29-2021 16:20-0400 Respiratory rate 18 /min DR PRIYANKA FRANCO MD [facility] 09-29-2021 16:20-0400 Systolic blood pressure 189 mm[Hg] DR PRIYANKA FRANCO MD [facility] 09-17-2021 20:16-0400 Body temperature 97.3 [degF] Dr. Daija Morton Work Phone: [facility] Work Phone: 09-17-2021 20:16-0400 Diastolic blood pressure 80 mm[Hg] Dr. Daija Morton Work Phone: [facility] Work Phone: 09-17-2021 20:16-0400 Heart rate 85 /min Dr. Daija Morton Work Phone: [facility] Work Phone: 09-17-2021 20:16-0400 Respiratory rate 17 /min Dr. Daija Morton Work Phone: [facility] Work Phone: 09-17-2021 20:16-0400 SaO2% (BldA) [Mass fraction] 96 % Dr. Daija Morton Work Phone: [facility] Work Phone: 09-17-2021 20:16-0400 Systolic blood pressure 171 mm[Hg] Dr. Daija Morton Work Phone: [facility] Work Phone: 09-17-2021 16:56-0400 Body height 172.[address] Daija Morton Work Phone: [facility] Work Phone: 09-17-2021 16:56-0400 Body mass index (BMI) [Ratio] 23.7 kg/m2 Dr. Daija Morton Work Phone: [facility] Work Phone: 09-17-2021 16:56-0400 Body weight 70.[address] Daija Morton Work Phone: [facility] Work Phone: 09-15-2021 17:40-0400 Diastolic blood pressure 73 mm[Hg] Anjel Older CONTOUR PATH TAPE MILL OPERATOR.ASSISTANT PASTRY CHEF Work Phone: [facility] 09-15-2021 17:40-0400 Systolic blood pressure 170 mm[Hg] Anjel Older CONTOUR PATH TAPE MILL OPERATOR.ASSISTANT PASTRY CHEF Work Phone: [facility] 09-15-2021 16:57-0400 Body weight 71.22 kg Anjel Older CONTOUR PATH TAPE MILL OPERATOR.ASSISTANT PASTRY CHEF Work Phone: [facility] 09-15-2021 16:57-0400 Heart rate 68 /min Anjel Older CONTOUR PATH TAPE MILL OPERATOR.ASSISTANT PASTRY CHEF Work Phone: [facility] 09-15-2021 16:57-0400 Respiratory rate 16 /min Anjel Older CONTOUR PATH TAPE MILL OPERATOR.ASSISTANT PASTRY CHEF Work Phone: [facility] 09-15-2021 16:18-0400 Body height 172.7 cm Kaye Ortega MD Work Phone: [facility] 09-15-2021 16:18-0400 Body temperature 97.39 [degF] Kaye Ortega MD Work Phone: [facility] 09-15-2021 16:18-0400 Body weight 71.67 kg Kaye Ortega MD Work Phone: [facility] 09-15-2021 16:18-0400 Diastolic blood pressure 72 mm[Hg] Kaye Ortega MD Work Phone: [facility] 09-15-2021 16:18-0400 Heart rate 78 /min Kaye Ortega MD Work Phone: [facility] 09-15-2021 16:18-0400 SaO2% (BldA) [Mass fraction] 96 % Kaye Ortega MD Work Phone: [facility] 09-15-2021 16:18-0400 Systolic blood pressure 138 mm[Hg] Kaye Ortega MD Work Phone: [facility] 08-21-2021 09:30-0500 Body temperature 97.6 [degF] Dr. Daija Morton Work Phone: [facility] Work Phone: 08-21-2021 09:30-0500 Diastolic blood pressure 69 mm[Hg] Dr. Daija Morton Work Phone: [facility] Work Phone: 08-21-2021 09:30-0500 Heart rate 61 /min Dr. Daija Morton Work Phone: [facility] Work Phone: 08-21-2021 09:30-0500 Inhaled oxygen flow rate 3 L/min Dr. Daija Morton Work Phone: [facility] Work Phone: 08-21-2021 09:30-0500 Respiratory rate 18 /min Dr. Daija Morton Work Phone: [facility] Work Phone: 08-21-2021 09:30-0500 SaO2% (BldA) [Mass fraction] 98 % Dr. Daija Morton Work Phone: [facility] Work Phone: 08-21-2021 09:30-0500 Systolic blood pressure 183 mm[Hg] Dr. Daija Morton Work Phone: [facility] Work Phone: 08-21-2021 08:30-0500 Body temperature 97.6 [degF] Dr. Daija Morton Work Phone: [facility] Work Phone: 08-21-2021 08:30-0500 Diastolic blood pressure 69 mm[Hg] Dr. Daija Morton Work Phone: [facility] Work Phone: 08-21-2021 08:30-0500 Heart rate 61 /min Dr. Daija Morton Work Phone: [facility] Work Phone: 08-21-2021 08:30-0500 Respiratory rate 18 /min Dr. Daija Morton Work Phone: [facility] Work Phone: 08-21-2021 08:30-0500 SaO2% (BldA) [Mass fraction] 98 % Dr. Daija Morton Work Phone: [facility] Work Phone: 08-21-2021 08:30-0500 Systolic blood pressure 183 mm[Hg] Dr. Daija Morton Work Phone: [facility] Work Phone: 08-20-2021 06:18-0500 Body mass index (BMI) [Ratio] 23.7 kg/m2 Dr. Daija Morton Work Phone: [facility] Work Phone: 08-20-2021 06:18-0500 Body weight [address] Daija Morton Work Phone: [facility] Work Phone: 08-20-2021 05:18-0500 Body mass index (BMI) [Ratio] 23.7 kg/m2 Dr. Daija Morton Work Phone: [facility] Work Phone: 08-20-2021 05:18-0500 Body weight [address] Daija Morton Work Phone: [facility] Work Phone: 08-12-2021 03:26-0500 Diastolic blood pressure 89 mm[Hg] Dr. Daija Morton Work Phone: [facility] Work Phone: 08-12-2021 03:26-0500 Heart rate 70 /min Dr. Daija Morton Work Phone: [facility] Work Phone: 08-12-2021 03:26-0500 Respiratory rate 18 /min Dr. Daija Morton Work Phone: [facility] Work Phone: 08-12-2021 03:26-0500 SaO2% (BldA) [Mass fraction] 93 % Dr. Daija Morton Work Phone: [facility] Work Phone: 08-12-2021 03:26-0500 Systolic blood pressure 211 mm[Hg] Dr. Daija Morton Work Phone: [facility] Work Phone: 08-11-2021 23:32-0500 Body mass index (BMI) [Ratio] 24.8 kg/m2 Dr. Daija Morton Work Phone: [facility] Work Phone: 08-11-2021 23:32-0500 Body temperature 97.5 [degF] Dr. Daija Morton Work Phone: [facility] Work Phone: 08-11-2021 23:32-0500 Body weight 74.[address] Daija Morton Work Phone: [facility] Work Phone: 06-12-2021 15:55-0500 Diastolic blood pressure 81 mm[Hg] Dr. Daija Morton Work Phone: [facility] Work Phone: 06-12-2021 15:55-0500 Heart rate 61 /min Dr. Daija Morton Work Phone: [facility] Work Phone: 06-12-2021 15:55-0500 Systolic blood pressure 182 mm[Hg] Dr. Daija Morton Work Phone: [facility] Work Phone: 06-12-2021 15:15-0500 Body mass index (BMI) [Ratio] 24.6 kg/m2 Dr. Daija Morton Work Phone: [facility] Work Phone: 06-12-2021 15:15-0500 Body temperature 96.8 [degF] Dr. Daija Morton Work Phone: [facility] Work Phone: 06-12-2021 15:15-0500 Body weight 73.[address] Daija Morton Work Phone: [facility] Work Phone: 06-12-2021 15:15-0500 Respiratory rate 18 /min Dr. Daija Morton Work Phone: [facility] Work Phone: 06-12-2021 15:15-0500 SaO2% (BldA) [Mass fraction] 96 % Dr. Daija Morton Work Phone: [facility] Work Phone: 06-04-2021 23:37-0500 Respiratory rate 18 /min Dr. Daija Morton Work Phone: [facility] Work Phone: 06-04-2021 22:01-0500 Body mass index (BMI) [Ratio] 23.6 kg/m2 Dr. Daija Morton Work Phone: [facility] Work Phone: 06-04-2021 22:01-0500 Body temperature 97.1 [degF] Dr. Daija Morton Work Phone: [facility] Work Phone: 06-04-2021 22:01-0500 Body weight 70.[address] Daija Morton Work Phone: [facility] Work Phone: 06-04-2021 22:01-0500 Diastolic blood pressure 99 mm[Hg] Dr. Daija Morton Work Phone: [facility] Work Phone: 06-04-2021 22:01-0500 Heart rate 87 /min Dr. Daija Morton Work Phone: [facility] Work Phone: 06-04-2021 22:01-0500 SaO2% (BldA) [Mass fraction] 97 % Dr. Daija Morton Work Phone: [facility] Work Phone: 06-04-2021 22:01-0500 Systolic blood pressure 202 mm[Hg] Dr. Daija Morton Work Phone: [facility] Work Phone: Encounters Encounter Date Encounter Type Care Provider Facility Start: 12-13-2024 End: 12-13-2024 Refill Daija Morton MD Work Phone: [facility] [place] Comment on above: Refill Request Orders [facility] requesting r ecords Start: 12-12-2024 End: 12-12-2024 Subsequent hospital visit by physician [facility] Work Phone: Radiology Comment on above: Wheezing [R06.2] Start: 12-12-2024 End: 12-12-2024 Office outpatient visit 25 minutes Anjel Omi NOVAK Work Phone: [facility] [place] Comment on above: Other emphysema (HCC ) (Primary Dx); Smoker; Wheezing; Lower abdominal tenderness; Loose stools; On home oxygen therapy; Primary hypertension; Left leg pain; Falls; Weakness Start: 12-09-2024 End: 12-09-2024 Telephone encounter Daija Morton MD Work Phone: [facility] [place] Comment on above: Home Care Management ; Patient Update Start: 12-06-2024 End: 12-06-2024 Telephone encounter Daija Morton MD Work Phone: [facility] [place] Comment on above: [place] [facility] update Start: 12-03-2024 End: 12-04-2024 Telephone encounter Daija Morton MD Work Phone: [facility] [place] Comment on above: Home Health Orders Start: 12-02-2024 ambulatory [facility] Facility:[facility] Start: 11-05-2024 End: 11-05-[address] Daija Morton MD Work Phone: [facility] Work Phone: Start: 11-05-2024 End: 11-05-[address] Carla Prather MD -[facility] Start: 11-05-2024 End: 11-05-2024 ambulatory [facility] Facility:[facility] Start: 10-16-2024 ambulatory [facility] Facility:[facility] Start: 10-16-[address] Carla Prather MD -[facility] Start: 09-02-2024 Non-patient / Non-visit Dr. Brody Maynard MD -[facility] Work Phone: Start: 09-01-2024 Non-patient / Non-visit Dr. Celia rapp MD -[facility] Work Phone: Start: 08-31-2024 Non-patient / Non-visit Dr. Celia rapp MD -[facility] Work Phone: Start: 08-30-2024 Non-patient / Non-visit Dr. Celia rapp MD -[place] [facility] Work Phone: Start: 08-29-2024 Non-patient / Non-visit Dr. Celia rapp MD -[place] [place] [facility] Work Phone: Start: 08-28-2024 Non-patient / Non-visit Dr. Celia rapp MD -[place] [place] [facility] Work Phone: Start: 08-27-2024 ambulatory Celia Toribio Facility:[facility] Start: 08-27-2024 End: 09-02-2024 Evaluation and management of inpatient Dr. Brody Maynard MD -[facility] Work Phone: Start: 08-27-2024 Non-patient / Non-visit Dr. Celia rapp MD -[facility] Work Phone: Start: 08-26-2024 Non-patient / Non-visit Dr. Celia rapp MD -[facility] [place] [facility] Work Phone: Start: 08-25-2024 Non-patient / Non-visit Dr. Lisha Talamantes DO [facility] Work Phone: Start: 08-25-2024 ambulatory Lisha Talamantes Facility:[facility] Start: 08-25-2024 Evaluation and management of inpatient Dr. Lisha Talamantes DO -[facility] Work Phone: Start: 08-25-[address] Germain Morton MD Work Phone: [facility] Work Phone: Start: 07-15-2024 ambulatory Carla Constantino ty:[facility] Start: 07-15-[address] Carla Prather MD -[facility] Start: 05-17-2024 End: 05-17-2024 Telephone encounter Daija Morton MD Work Phone: [facility] [place] Comment on above: Patient Update Start: 04-29-2024 End: 05-14-2024 Telephone encounter Daija Morton MD Work Phone: [facility] [place] Comment on above: Patient Update Start: 04-12-2024 ambulatory Carla Constantino ty:[facility] Start: 04-08-2024 ambulatory Maxi Curtis Facility:[facility] Start: 04-07-2024 ambulatory [facility] Facility: [facility] [place] [place] Start: 04-07-2024 End: 04-10-2024 Evaluation and management of inpatient [facility] Facility:[facility] Start: 04-06-2024 ambulatory [facility] Facility: [facility] [place] [place] Start: 04-04-2024 End: 04-24-2024 Telephone encounter Daija Morton MD Work Phone: [facility] [place] Comment on above: Patient Update Start: 03-31-2024 End: 04-04-2024 Telephone encounter Sera SALDIVAR Work Phone: [facility] Comment on above: Results Start: 03-25-2024 End: 03-25-2024 Telephone encounter Sera SALDIVAR Work Phone: [facility] Comment on above: Results Start: 03-23-2024 End: 03-23-2024 ambulatory DAIJA MORTON Facility:[facility] Start: 03-23-2024 End: 03-23-2024 Patient encounter procedure Pura Carter APRN.CNP Work Phone: [facility] Comment on above: Uncontrolled hyperte nsion (Primary Dx); Dysuria; Urinary tract infection without hematuria, site unspecified Start: 03-12-2024 End: 03-12-2024 Refill Daija Morton MD Work Phone: [facility] [place] Comment on above: Refill Request Start: 02-20-2024 End: 02-20-2024 Emergency department patient visit Olayinka Cordova Facility:[facility] Start: 01-23-2024 Refill Daija Damon Work Phone: [facility] [place] Comment on above: Refill Request Start: 01-03-2024 End: 01-03-2024 Emergency department patient visit Jb Adler Facility:[facility] Start: 01-02-2024 Orders Only Ryan May MD Work Phone: Vascular Surgery Comment on above: Peripheral arterial disease (HCC) (Primary Dx) Start: 01-01-2024 Telephone encounter Daija pressley MD Work Phone: [facility] [place] Comment on above: No Show Start: 12-22-2023 Telephone encounter Daija pressley MD Work Phone: [facility] [place] Comment on above: Mental status change Start: 12-08-2023 Telephone encounter Daija pressley MD Work Phone: [facility] [place] Comment on above: Patient Update Start: 12-08-2023 End: 12-08-2023 Emergency department patient visit [facility] Facility:[facility] Start: 11-21-2023 End: 11-21-2023 Office outpatient visit 25 minutes Rebekah Luu PA-C Work Phone: [facility] [place] Comment on above: 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); Other emphysema (HCC); Chronic sore throat; Smoking; Closed nondisplaced fracture of pelvis with routine healing, unspecified part of pelvis, subsequent encounter; Mixed hyperlipidemia; Hypertension, unspecified type Start: 11-20-2023 Telephone encounter Daija pressley MD Work Phone: [facility] [place] Comment on above: Future Appointment Start: 11-17-2023 Telephone encounter Rebekah Luu PA-C Work Phone: [facility] [place] Comment on above: Orders (Follow skill ed nursing orders from [facility]) Start: 11-15-2023 Telephone encounter Rebekah Luu PA-C Work Phone: [facility] [place] Start: 11-09-2023 Telephone encounter Daija pressley MD Work Phone: [facility] [place] Comment on above: Orders Start: 10-19-2023 Telephone encounter Daija pressley MD Work Phone: [facility] [place] Comment on above: FYI-No Action Needed Start: 08-21-2023 ambulatory Lisakaren Farley [facility] Comment on above: Population Health Na vigation Outreach ([employer] care gaps) Start: 08-04-2023 Refill Daija Daomn Work Phone: [facility] [place] Comment on above: Refill Request Start: 08-02-2023 Dr. Daija pressley Work Phone: [facility] Work Phone: Start: 08-01-2023 Dr. Daija pressley Work Phone: [facility] Work Phone: Start: 07-31-2023 Dr. Daija pressley Work Phone: [facility] Work Phone: Start: 07-30-2023 End: 08-02-2023 Evaluation and management of inpatient Dr. Daija Morton Work Phone: [facility] Work Phone: Start: 07-30-2023 End: 08-02-2023 Dr. Daija Morton Work Phone: [facility]-Intensive Care Unit Work Phone: Start: 07-27-2023 Dr. Daija pressley Work Phone: [facility] Start: 07-26-2023 Dr. Daija pressley Work Phone: [facility] Work Phone: Start: 07-25-2023 Dr. Daija pressley Work Phone: [facility] Work Phone: Start: 07-24-2023 Evaluation and management of inpatient Dr. Daija Morton Work Phone: [facility] Work Phone: Start: 07-24-2023 Non-patient / Non-visit Dr. Vernon Morton Work Phone: [facility] Work Phone: Start: 07-24-2023 End: 07-26-2023 Dr. Daija Morton Work Phone: [facility] Work Phone: Start: 07-19-2023 Telephone encounter Daija pressley MD Work Phone: [facility] [place] Comment on above: Patient Update Start: 07-10-2023 End: 07-15-[address] DAIJA MORTON MD Facility:[facility] Start: 06-14-2023 End: 06-14-[address] Daija Morton Work Phone: [facility] Work Phone: Start: 06-14-2023 End: 06-14-[address] Daija Morton Work Phone: [facility]-Laboratory, Specimen Work Phone: Start: 06-14-2023 End: 06-14-2023 Dr. [facility] Start: 05-30-2023 Refill Daija Damon Work Phone: [facility] [place] Comment on above: Refill Request Start: 05-19-2023 Telephone encounter Daija pressley MD Work Phone: [facility] [place] Comment on above: Need verbal for Adva royce [facility] Start: 05-19-2023 End: 05-19-[address] Daija Morton Work Phone: [facility] Work Phone: Start: 05-19-2023 End: 05-19-[address] Daija Morton Work Phone: [facility] Start: 05-19-2023 End: 05-19-2023 Dr. Daija Morton Work Phone: [phone] [place] [address] Start: 04-19-[address] Daija Morton Work Phone: [phone] [place] [address] Start: 04-19-2023 Dr. Daija pressley Work Phone: [phone] [place] [address] Start: 04-17-[address] Daija Morton Work Phone: [phone] [place] [address] Start: 04-17-2023 Dr. Daija pressley Work Phone: [phone] [place] [address] Start: 04-12-[address] Daija Morton Work Phone: [phone] [place] [address] Start: 04-12-2023 Dr. Daija pressley Work Phone: [phone] [place] [address] Start: 04-05-[address] Daija Morton Work Phone: [phone] [place] [address] Start: 04-05-2023 Dr. Daija pressley Work Phone: [phone] [place] [address] Start: 04-04-2023 Non-patient / Non-visit Dr. Vernon Morton Work Phone: [facility] Work Phone: Start: 04-04-2023 Dr. Daija pressley Work Phone: [facility] Work Phone: Start: 04-03-2023 Non-patient / Non-visit Dr. Vernon Morton Work Phone: [facility] Work Phone: Start: 04-03-2023 Dr. Daija pressley Work Phone: [facility] Work Phone: Start: 04-02-2023 Non-patient / Non-visit Dr. Vernon Morton Work Phone: [facility] Work Phone: Start: 04-02-2023 Dr. Daija pressley Work Phone: [facility] Work Phone: Start: 04-01-2023 Non-patient / Non-visit Dr. Vernon Morton Work Phone: [facility] Work Phone: Start: 03-31-2023 Telephone encounter Daija pressley MD Work Phone: [address] [place] [address] Comment on above: Erroneous encounter- disregard Start: 03-31-2023 Non-patient / Non-visit Dr. Vernon Morton Work Phone: [facility] Work Phone: Start: 03-30-2023 Non-patient / Non-visit Dr. Vernon Morton Work Phone: [facility] Work Phone: Start: 03-30-2023 End: 04-04-2023 Evaluation and management of inpatient Dr. Daija Morton Work Phone: [facility] Work Phone: Start: 03-30-2023 End: 04-04-2023 Dr. Daija Morton Work Phone: [facility] Work Phone: Start: 03-29-2023 End: 03-29-2023 Emergency department patient visit Dr. Daija Morton Work Phone: [facility]-Emergency Department Work Phone: Start: 02-25-2023 End: 02-25-2023 Emergency department patient visit Dr. Daija Morton [facility] Start: 02-24-2023 Refill Anjel Braga APRN .ASSISTANT PASTRY CHEF Work Phone: [facility] [place] Comment on above: Refill Request Start: 02-17-2023 End: 02-18-2023 [facility] Start: 01-27-2023 Refill Daija Damon Work Phone: [facility] [place] Comment on above: Refill Request Start: 12-31-2022 End: 12-31-2022 [facility] Start: 12-26-2022 End: 12-26-2022 Patient encounter procedure Ryan May MD Work Phone: V[facility] Surgery Comment on above: Peripheral arterial disease (HCC) (Primary Dx) Peripheral arterial disease (HCC) (Primary Dx); PVD (peripheral vascular disease) (HCC) Start: 10-22-2022 End: 10-23-2022 Emergency department patient visit DR DAIJA MORTON MD Facility:[facility] Start: 10-22-2022 End: 10-22-2022 Emergency department patient visit DR PRIYANKA FRANCO MD [facility] Start: 10-21-2022 End: 10-21-2022 [facility] Start: 09-30-2022 Refill Daija Damon Work Phone: [facility] [place] Comment on above: Refill Request Start: 09-06-2022 Telephone encounter Anjel Braga APRN.ASSISTANT PASTRY CHEF Work Phone: [facility] [place] Comment on above: patient problem Start: 09-01-2022 Refill Daija Damon Work Phone: [facility] [place] Comment on above: Refill Request; HHC Request Start: 08-29-2022 Refill Daija Damon Work Phone: [facility] [place] Comment on above: Refill Request Start: 08-27-2022 End: 08-27-2022 Patient encounter procedure Daija Morton MD Work Phone: [facility] [place] Comment on above: Ambulatory dysfuncti on (Primary Dx); Closed fracture of multiple ribs of left side, sequela; Paroxysmal atrial fibrillation (HCC); Anemia, unspecified type; Essential hypertension; PVD (peripheral vascular disease) (HCC); Anticoagulation goal of INR 2 to 3; Uncontrolled hypertension; Declining mobility Start: 08-25-2022 Telephone encounter Daija pressley MD Work Phone: [facility] [place] Comment on above: Appointment Refill Request; [place] ent Update Start: 08-11-2022 End: 08-11-2022 Departed Referred [facility] Start: 08-02-2022 Telephone encounter Ryan Mya MD Work Phone: V[facility] Surgery Comment on above: Appointment Start: 07-12-2022 End: 07-12-2022 ambulatory [facility] Work Phone: Start: 07-12-2022 End: 07-12-2022 Departed Referred [facility] Start: 06-14-2022 End: 06-14-2022 Departed Referred [facility] Start: 06-14-2022 Registered Referred [facility] Start: 05-13-2022 End: 05-13-2022 ambulatory [facility] Work Phone: Start: 05-13-2022 End: 05-13-2022 Departed Referred [facility] Start: 03-29-2022 ambulatory Daija Damon Work Phone: [facility] [place] Start: 03-15-[address] [facility] 100/200 Start: 03-14-2022 Telephone encounter Daija pressley MD Work Phone: [facility] [place] Comment on above: Medication Question Start: 03-11-2022 Telephone encounter Anjel Braga APRN.ASSISTANT PASTRY CHEF Work Phone: [facility] [place] Comment on above: admit to [facility] Start: 03-10-2022 Telephone encounter Daija pressley MD Work Phone: [facility] [place] Comment on above: Appointment Start: 03-10-2022 End: 03-10-2022 Patient encounter procedure Anjel Braga APRN.ASSISTANT PASTRY CHEF Work Phone: [facility] [place] Comment on above: Fall, sequela (Prima ry Dx); Closed fracture of multiple ribs of left side, sequela; Pain Start: 03-09-2022 Telephone encounter Daija pressley MD Work Phone: [facility] [place] Comment on above: [facility] orders needed t [facility] Start: 03-08-2022 End: 03-08-2022 Emergency department patient visit Dr. Daija Morton [facility] Start: 03-07-2022 End: 03-07-2022 Emergency department patient visit Dr. Daija Morton [facility] Start: 03-02-2022 End: 03-02-2022 Emergency department patient visit Dr. Daija Morton Work Phone: [facility] [facility] Start: 03-02-2022 ambulatory Daija Damon Work Phone: Internal [facility] [place] Comment on above: Syncope Start: 03-02-2022 Telephone encounter Daija pressley MD Work Phone: [facility] [place] Comment on above: Erroneous encounter- disregard Start: 02-23-2022 Telephone encounter Daija pressley MD Work Phone: Internal [facility] [place] Comment on above: Orders Start: 02-22-2022 Refill Daija Damon Work Phone: [facility] [place] Comment on above: Refill Request Start: 02-01-2022 Telephone encounter Daija pressley MD Work Phone: Internal [facility] [place] Comment on above: Patient Question Start: 01-31-2022 End: 01-31-2022 Patient encounter procedure Ryan May MD Work Phone: Vascular Surgery Comment on above: s/p left femoral end arterectomy/aortoiliac stenting 10/08/2019 (Primary Dx); PVD (peripheral vascular disease) (HCC); Smoker PVD (peripheral vasc ular disease) (HCC) (Primary Dx) Start: 01-28-2022 End: 01-28-2022 Emergency department patient visit Dr. Daija Morton Work Phone: [facility]Emergency Department Start: 01-28-2022 End: 01-28-2022 Patient encounter procedure Anjel Braga APRN.ASSISTANT PASTRY CHEF Work Phone: Internal Medicine [place] Comment on above: Essential hypertensi on (Primary Dx); Chest pain, unspecified type; Acute nonintractable headache, unspecified headache type; GI bleeding; Anticoagulation goal of INR 2 to 3 Start: 01-20-2022 End: 01-20-2022 Patient encounter procedure Ye Coello MD Work Phone: [facility] Comment on above: Tobacco abuse (Prima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 pathway protocol [facility] Start: 07-24-2023 Assessment of risk o f venous thromboembolism [facility] Start: 07-24-2023 Insertion of cathete r into peripheral vein [facility] Start: 07-24-2023 Oxygen therapy [facility] Start: 07-24-2023 Providing care accor ding to standard [facility] Start: 07-24-2023 Referral to service [facility] Start: 07-24-2023 [facility] Start: 07-24-2023 Verification routine [facility] Start: 07-24-2023 Admission procedure [facility] Start: 07-24-2023 Hospital admission, emergency, from emergency room, medical [facility] Start: 07-24-2023 Consultation [facility] Start: 07-24-2023 Consultation [facility] Start: 07-24-2023 Patient referral to dietitian [facility] Start: 06-19-2023 Advance Directive Discussion Advance Directive Discussion [facility] Start: 04-04-2023 Patient discharge [facility] Start: 04-03-2023 Consultation [facility] Start: 04-02-2023 Contact precautions [facility] Start: 03-30-2023 End: 03-30-2023 Following clinical pathway protocol [facility] Start: 03-30-2023 Assessment of risk o f venous thromboembolism [facility] Start: 03-30-2023 Catheterization of vein [facility] Start: 03-30-2023 Inhalation therapy procedure [facility] Start: 03-30-2023 Insertion of cathete r into peripheral vein [facility] Start: 03-30-2023 Oxygen therapy [facility] Start: 03-30-2023 Providing care accor ding to standard [facility] Start: 03-30-2023 Provision of activit y privileges [facility] Start: 03-30-2023 Referral to occupati onal therapist [facility] Start: 03-30-2023 Referral to service [facility] Start: 03-30-2023 End: 03-30-2023 [facility] Start: 03-30-2023 End: 03-30-2023 Blood culture [facility] Start: 03-30-2023 Verification routine [facility] Start: 03-30-2023 Hospital admission, emergency, from emergency room, medical nature [facility] Start: 03-30-2023 Admission procedure [facility] Start: 03-30-2023 Bacteria identified in Blood by Culture Blood Culture [facility] Start: 03-30-2023 Consultation [facility] Start: 03-30-2023 Inhalation therapy procedure [facility] Start: 03-29-2023 [facility] Start: 03-29-2023 Emergency department visit low/moder severity EMERGENCY DEPT VISIT [facility] Start: 03-10-2023 ANNUAL PCP TEAM RN PLASTIC SURGERY MARY DISEASE VISIT ANNUAL PCP TEAM CHRONIC DISEASE VISIT [facility] Start: 02-17-2023 Covid-19 Vaccine ( season) Covid-19 Vaccine ( season) [facility] Start: 02-17-2023 Influenza vaccination [facility] Start: 02-04-2023 ANNUAL PCP TEAM RN PLASTIC SURGERY MARY DISEASE VISIT ANNUAL PCP TEAM CHRONIC DISEASE VISIT [facility] Start: 01-28-2023 ANNUAL PCP TEAM RN PLASTIC SURGERY MARY DISEASE VISIT ANNUAL PCP TEAM CHRONIC DISEASE VISIT [facility] Start: 01-14-2023 SHINGRIX VACCINE (2 of 3) MCNALLY GRIX VACCINE (2 of 3) [facility] Comment on above: Postponed from 11/19 (Declined at this time) Start: 01-03-2023 Urine microalbumin profile DTAP,TDAP,TD (2 - Td or Tdap) [facility] Start: 11-17-2022 ANNUAL PCP TEAM RN PLASTIC SURGERY MARY DISEASE VISIT ANNUAL PCP TEAM CHRONIC DISEASE VISIT [facility] Start: 10-26-2022 COVID-19 VACCINE (4 - Moderna series) COVID-19 VACCINE (4 - Moderna series) [facility] Start: 10-21-2022 [facility] Start: 10-07-2022 ANNUAL PCP TEAM RN PLASTIC SURGERY MARY DISEASE VISIT ANNUAL PCP TEAM CHRONIC DISEASE VISIT [facility] Start: 09-15-2022 ANNUAL PCP TEAM RN PLASTIC SURGERY MARY DISEASE VISIT ANNUAL PCP TEAM CHRONIC DISEASE VISIT [facility] Start: 06-19-2022 ADVANCE DIRECTIVE DISCUSSION ADVANCE DIRECTIVE DISCUSSION [facility] Start: 04-02-2022 ANNUAL PCP TEAM RN PLASTIC SURGERY MARY DISEASE VISIT ANNUAL PCP TEAM CHRONIC DISEASE VISIT [facility] Start: 03-29-2022 End: 05-29-2022 Hemoglobin A1c in Blood HGB A1C Lab Routine Medication management Expected: 03/29/2022, Expires: 05/29/2022 [facility] Work Phone: Comment on above: Expected: 03/29/2022 , Expires: 05/29/2022 Start: 03-29-2022 End: 05-29-2022 Lipid 1996 panel - Serum or Plasma LIPID PANEL BASIC Lab Routine Hyperlipidemia Expected: 03/29/2022, Expires: 05/29/2022 [facility] Work Phone: Comment on above: Expected: 03/29/2022 , Expires: 05/29/2022 Start: 03-29-2022 End: 05-29-2022 SCHEDULE LAB TESTING SCHEDULE LAB TESTING Lab Routine Expected: 03/29/2022, Expires: 05/29/2022 [facility] Work Phone: Comment on above: Expected: 03/29/2022 , Expires: 05/29/2022 Start: 02-17-2022 Influenza vaccination INFLUENZA (#1) [facility] Start: 01-14-2022 End: 03-16-2022 CBC W Auto Differential panel - Blood [facility] Work Phone: Comment on above: Expected: 01/14/2022 , Expires: 03/16/2022 Start: 11-30-2021 Patient discharge [facility] Work Phone: Start: 11-28-2021 Care planning and pr oblem solving actions [facility] Work Phone: Start: 11-26-2021 Administration of bl ood product [facility] Work Phone: Start: 11-26-2021 Catheterization of vein [facility] Work Phone: Start: 11-26-2021 Notification of physician [facility] Work Phone: Start: 11-26-2021 Referral to occupati onal therapist [facility] Work Phone: Start: 11-26-2021 End: 11-26-2021 Referral to service [facility] Work Phone: Start: 11-26-2021 Catheterization of vein [facility] Work Phone: Start: 11-26-2021 Following clinical pathway protocol [facility] Work Phone: Start: 11-26-2021 Inhalation therapy procedure [facility] Work Phone: Start: 11-25-2021 Assessment of risk o f venous thromboembolism [facility] Work Phone: Start: 11-25-2021 Insertion of cathete r into peripheral vein [facility] Work Phone: Start: 11-25-2021 Measuring intake and output [facility] Work Phone: Start: 11-25-2021 Oxygen therapy [facility] Work Phone: Start: 11-25-2021 Providing care accor ding to standard [facility] Work Phone: Start: 11-25-2021 Provision of activit y privileges [facility] Work Phone: Start: 11-25-2021 Referral to gastroenterology service [facility] Work Phone: Start: 11-25-2021 [facility] Work Phone: Start: 11-25-2021 Admission procedure [facility] Work Phone: Start: 11-25-2021 End: 11-25-2021 Administration of blood product [facility] Work Phone: Start: 11-25-2021 Patient referral to dietitian [facility] Work Phone: Start: 10-23-2021 End: 12-23-2021 PT panel - Platelet poor plasma by Coagulation assay PROTHROMBIN TIME/PT Lab Routine Anticoagulation goal of INR 2 to 3 Expected: 10/23/2021, Expires: 12/23/2021 [facility] Work Phone: Comment on above: Expected: 10/23/2021 , Expires: 12/23/2021 Start: 10-19-2021 End: 12-19-2021 Hemoglobin A1c/Hemoglobin.total in Blood HGB A1C Lab Routine Medication management Expected: 10/19/2021, Expires: 12/19/2021 [facility] Work Phone: Comment on above: Expected: 10/19/2021 , Expires: 12/19/2021 Start: 10-19-2021 End: 12-19-2021 LIPID PANEL BASIC LIPID PANEL BASIC Lab Routine Hyperlipidemia Expected: 10/19/2021, Expires: 12/19/2021 [facility] Work Phone: Comment on above: Expected: 10/19/2021 , Expires: 12/19/2021 Start: 10-19-2021 End: 12-19-2021 SCHEDULE LAB TESTING SCHEDULE LAB TESTING Lab Routine Expected: 10/19/2021, Expires: 12/19/2021 [facility] Work Phone: Comment on above: Expected: 10/19/2021 , Expires: 12/19/2021 Start: 10-17-2021 Colonoscopy COLONOSCOPY [facility] Start: 10-17-2021 COLORECTAL CANCER SCREENING COLORECTAL CANCER SCREENING [facility] Start: 09-22-2021 End: 11-22-2021 CBC W Auto Differential panel - Blood CBC + DIFF Lab Routine Anemia, unspecified type Expected: 09/22/2021, Expires: 11/22/2021 [facility] Work Phone: Comment on above: Expected: 09/22/2021 , Expires: 11/22/2021 Start: 09-22-2021 End: 11-22-2021 PT panel - Platelet poor plasma by Coagulation assay PROTHROMBIN TIME/PT Lab Routine Encounter for monitoring Coumadin therapy Expected: 09/22/2021, Expires: 11/22/2021 [facility] Work Phone: Comment on above: Expected: 09/22/2021 , Expires: 11/22/2021 Start: 08-21-2021 Patient discharge [facility] Work Phone: Start: 08-19-2021 Application of intermittent pneumatic compression device [facility] Work Phone: Start: 08-19-2021 Oxygen therapy [facility] Work Phone: Start: 08-19-2021 Tobacco use cessatio n education [facility] Work Phone: Start: 08-19-2021 [facility] Work Phone: Start: 08-19-2021 Care planning and pr oblem solving actions [facility] Work Phone: Start: 08-19-2021 Administration of bl ood product [facility] Work Phone: Start: 08-19-2021 Referral to cook restaurant [facility] Work Phone: Start: 08-19-2021 [facility] Work Phone: Start: 08-19-2021 Referral to occupati onal therapist [facility] Work Phone: Start: 08-19-2021 Referral to service [facility] Work Phone: Start: 08-19-2021 Application of intermittent pneumatic compression device [facility] Work Phone: Start: 08-19-2021 Administration of bl ood product [facility] Work Phone: Start: 08-19-2021 Administration of bl ood product [facility] Work Phone: Start: 08-19-2021 Inhalation therapy procedure [facility] Work Phone: Start: 08-18-2021 Following clinical pathway protocol [facility] Work Phone: Start: 08-18-2021 Ambulation without limitation [facility] Work Phone: Start: 08-18-2021 Assessment of risk o f venous thromboembolism [facility] Work Phone: Start: 08-18-2021 Insertion of cathete r into peripheral vein [facility] Work Phone: Start: 08-18-2021 Providing care accor ding to standard [facility] Work Phone: Start: 08-18-2021 [facility] Work Phone: Start: 08-18-2021 Admission procedure [facility] Work Phone: Start: 06-19-2021 ADVANCE DIRECTIVE DISCUSSION ADVANCE DIRECTIVE DISCUSSION [facility] Start: 06-04-2021 Smpl repair scalp/neck/ax/genit/trunk 2.6-7.5cm RPR S/N/AX/GEN/TRNK2.6-7.5CM [facility] Work Phone: Start: 11-19-2020 SHINGRIX VACCINE (2 of 3) MCNALLY GRIX VACCINE (2 of 3) [facility] Start: 11-05-2020 COVID-19 VACCINE (2 - Moderna 3-dose series) COVID-19 VACCINE (2 - Moderna 3-dose series) [facility] Start: 11-05-2020 COVID-19 VACCINE (2 - Moderna series) COVID-19 VACCINE (2 - Moderna series) [facility] Start: 03-19-2020 Hepatitis B surface antibody level LDL CHOLESTEROL [facility] Start: 11-15-2015 FECAL OCCULT BLOOD FECAL OCCULT BLOO D [facility] Start: 11-15-2015 Screening for malign ant neoplasm of colon Fecal Occult Blood [facility] Start: 01-17-2014 Medicare Annual Well ness Visit Medicare Annual Wellness Visit [facility] Start: 2009 RSV Vaccine (1 - 1-d ose 60+ series) RSV Vaccine (1 - 1-dose 60+ series) [facility] Start: 2009 RSV Vaccine (1 - Ris k 60-74 years 1-dose series) RSV Vaccine (1 - Risk 60-74 years 1-dose series) [facility] Start: 1999 Influenza vaccination LUNG CANCER SC REENING [facility] Start: 1999 Screening for malign ant neoplasm of lung Lung Cancer Screening [facility] Start: 1999 SHINGRIX VACCINE (1 of 2) MCNALLY GRIX VACCINE (1 of 2) [facility] Start: 1994 COLOGUARD (FIT-DNA) COLOGUARD (FIT-D NA) [facility] Start: [address] COLONOGRAPHY [facility] Start: 1994 Screening for malign ant neoplasm of colon [facility] Start: 1994 SIGMOIDOSCOPY SIGMOIDOSCOPY [facility] Start: 1979 Zoledronic acid therapy ALPHA- 1 ANTITRYPSIN DEFICIENCY SCREENING [facility] Start: 1967 BP CONTROLLED (<130/80) BP CONTROLLE D (<130/80) [facility] Bacteria identified in Urine by Culture URINE CULTURE Microbiology Routine Dysuria Ordered: 09/15/2021 [facility] Work Phone: Comment on above: Ordered: 09/15/2021 Bacteria identified in Urine by Culture Urine Culture [facility] Bacteria identified in Urine by Culture URINE CULTURE Microbiology Routine Dysuria 03/23/2024 2:06 PM EDT [facility] Work Phone: Clostridioides diffi cile DNA [Presence] in Unspecified specimen by ALEENA with probe detection [facility] End: 01-28-2023 ECG COMPLETE ECG COMPLETE ECG Routine Essential hypertension Chest pain, unspecified type 1 Occurrences starting 01/28/2022 until 01/28/2023 [facility] Work Phone: Comment on above: 1 Occurrences starti ng 01/28/2022 until 01/28/2023 Hemoglobin.gastroint estin alFlaviolower [Presence] in Stool by Immunoassay FECAL OCCULT BLOOD TEST Lab Routine Acute blood loss anemia Angiodysplasia of colon with hemorrhage Ordered: 01/14/2022 [facility] Work Phone: Comment on above: Ordered: 01/14/2022 Lactic acid measurement [facility] End: 12-05-2022 LUNG DIFFUSION CAPACITY (DLCO) LUNG DIFFUSION CAPACITY (DLCO) PFT Routine COPD with chronic bronchitis (HCC) 1 Occurrences starting 11/05/2021 until 12/05/2022 [facility] Work Phone: Comment on above: 1 Occurrences starti ng 11/05/2021 until 12/05/2022 Nucleic acid assay [facility] Patient Education [facility] Work Phone: Patient referral [facility] Work Phone: End: 06-18-2023 PVR LEG COREY VAS LAB PVR LEG COREY VAS LAB Vascular Lab Routine PVD (peripheral vascular disease) (HCC) 1 Occurrences starting 01/31/2022 until 06/18/2023 [facility] Work Phone: Comment on above: 1 Occurrences starti ng 01/31/2022 until 06/18/2023 PVR LEG COREY VAS LAB PVR LEG COREY VAS LAB Vascular Lab Routine Peripheral arterial disease (HCC) PVD (peripheral vascular disease) (HCC) 1 Occurrences starting 12/26/2022 [facility] Work Phone: Comment on above: 1 Occurrences starti ng 12/26/2022 End: 12-05-2022 Radiologic exam chest 2 views XR CHEST 2V FRONTAL/LAT Radiology Routine COPD with chronic bronchitis (HCC) 1 Occurrences starting 11/05/2021 until 12/05/2022 [facility] Work Phone: Comment on above: 1 Occurrences starti ng 11/05/2021 until 12/05/2022 Urinalysis complete panel - Urine URINALYSIS, WITH MICROSCOPIC Lab Routine Dysuria Hematuria, unspecified type Ordered: 09/15/2021 [facility] Work Phone: Comment on above: Ordered: 09/15/2021 Urinalysis complete panel - Urine UA WITH CULTURE IF INDICATED Lab Routine Dysuria Ordered: 09/15/2021 [facility] Work Phone: Comment on above: Ordered: 09/15/2021 End: 01-01-2025 US Lower extremity artery - bilateral PVR LEG COREY [facility] LAB Vascular Lab Routine Peripheral arterial disease (HCC) 1 Occurrences starting 01/02/2024 until 01/01/2025 [facility] Work Phone: Comment on above: 1 Occurrences starti ng 01/02/2024 until 01/01/2025 End: 01-11-2026 XR Chest PA and Lateral XR CHEST 2V FRONTAL/LAT Radiology Routine Wheezing 1 Occurrences starting 12/12/2024 until 01/11/2026 [facility] Comment on above: 1 Occurrences starti ng 12/12/2024 until 01/11/2026 XR Chest PA and Lateral XR CHEST 2V FRONTAL/LAT Radiology Routine Wheezing 12/12/2024 3:36 PM EDT [facility] Immunizations Immunization Date Immunization Notes Care Provider [facility] 03-31-2023 Influenza High-Dose Quadrivalent Dr. Daija Morton Work Phone: [facility] 03-31-2023 influenza virus vaccine, unspecified formulation Daija Morton MD Work Phone: [facility] 06-04-2021 tetanus toxoid, redu marianna diphtheria toxoid, and acellular pertussis vaccine, adsorbed Dr. Daija Morton Work Phone: [facility] 04-05-2021 influenza, high-dose , quadrivalent vaccine (FLUZONE HIGH DOSE QUADRIVALENT) Lizette Ulloa RN Work Phone: [facility] 04-05-2021 influenza virus vaccine, unspecified formulation Anjel Braga CONTOUR PATH TAPE MILL OPERATOR.ASSISTANT PASTRY CHEF Work Phone: [facility] 10-08-2020 COVID-19 vaccine, fu ll dose (MODERNA) Lizette Ulloa RN Work Phone: [facility] 09-24-2020 zoster vaccine, live Harriett B monie CONTOUR PATH TAPE MILL OPERATOR.BELT LOOP MACHINE OPERATOR Work Phone: [facility] 09-16-2020 influenza, high-dose , quadrivalent vaccine (FLUZONE HIGH DOSE QUADRIVALENT) Respiratory Wstr Work Phone: [facility] Work Phone: 08-09-2020 influenza, injectabl e, quadrivalent, contains preservative Harriett Albert CONTOUR PATH TAPE MILL OPERATOR.BELT LOOP MACHINE OPERATOR Work Phone: [facility] 08-09-2020 influenza, injectabl e, quadrivalent, preservative free Dr. Daija Morton Work Phone: [facility] 08-09-2020 influenza, seasonal, injectable Dr. Daija Morton Work Phone: [facility] 08-09-2020 influenza, seasonal, injectable, preservative free Harriett Albert CONTOUR PATH TAPE MILL OPERATOR.BELT LOOP MACHINE OPERATOR Work Phone: [facility] 05-21-2020 influenza, high-dose , quadrivalent vaccine (FLUZONE HIGH DOSE QUADRIVALENT) Lizette Ulloa RN Work Phone: [facility] Work Phone: 07-11-2019 influenza, high dose seasonal, preservative-free Lizette Ulloa RN Work Phone: [facility] Work Phone: 05-18-2018 pneumococcal polysaccharide vaccine, 23 valent Lizette Ulloa RN Work Phone: [facility] 03-14-2018 influenza, high dose seasonal, preservative-free Lizette Ulloa RN Work Phone: [facility] 05-31-2017 influenza, high dose seasonal, preservative-free Lizette Ulloa RN Work Phone: [facility] 06-01-2016 influenza, high dose seasonal, preservative-free Lizette Ulloa RN Work Phone: [facility] Work Phone: 03-23-2016 influenza, injectabl e, quadrivalent, contains preservative Harriett Albert CONTOUR PATH TAPE MILL OPERATOR.BELT LOOP MACHINE OPERATOR Work Phone: [facility] 03-23-2016 influenza, injectabl e, quadrivalent, preservative free Dr. Daija Morton Work Phone: [facility] 03-23-2016 influenza, seasonal, injectable Dr. Daija Morton Work Phone: [facility] 03-23-2016 influenza, seasonal, injectable, preservative free Lizette Ulloa RN Work Phone: [facility] Work Phone: 07-14-2015 pneumococcal conjuga te vaccine, 13 valent Lizette Ulloa RN Work Phone: [facility] Work Phone: 09-09-2014 influenza, injectabl e, quadrivalent, contains preservative Harriett Albert CONTOUR PATH TAPE MILL OPERATOR.BELT LOOP MACHINE OPERATOR Work Phone: [facility] 09-09-2014 influenza, injectabl e, quadrivalent, preservative free Dr. Daija Morton Work Phone: [facility] 09-09-2014 influenza, seasonal, injectable Dr. Daija Morton Work Phone: [facility] 09-09-2014 influenza, seasonal, injectable, preservative free Lizette Ulloa RN Work Phone: [facility] Work Phone: 03-25-2013 pneumococcal polysaccharide vaccine, 23 valent Lizette Ulloa RN Work Phone: [facility] Work Phone: 03-25-[address] Nemesio Morton Work Phone: [facility] Work Phone: 03-25-2013 pneumococcal vaccine , unspecified formulation Respiratory Wstr Work Phone: [facility] Work Phone: 03-24-[address] Daija Morton Work Phone: [facility] 03-24-2013 influenza virus vaccine, unspecified formulation Lizette Ulloa RN Work Phone: [facility] Work Phone: 03-24-2013 influenza, seasonal, injectable Harriett Albert CONTOUR PATH TAPE MILL OPERATOR.BELT LOOP MACHINE OPERATOR Work Phone: [facility] 03-24-2013 influenza, seasonal, injectable, preservative free Lizette Ulloa RN Work Phone: [facility] Work Phone: 01-03-2013 tetanus toxoid, redu marianna diphtheria toxoid, and acellular pertussis vaccine, adsorbed Lizette Ulloa RN Work Phone: [facility] Payers Date Payer Category Payer Medicare (Managed Care) [employer] MEDICARE [id number] 2023 Medicaid [id number] 2023 Self-pay [id number] 2023 Unknown [id number] 2023 Private Health Insurance [id number] 2022 Unknown [id number] 2021 Medicare [facility] AARP MEDICAR [facility] A[facility]IC[facility] HMO [id number] 2021-[facility] [phone] [address] [address] [place] [address] HMO [id number] 2017 Medicaid [id number] 2017 Medicaid [id number] 2014 Medicare [id number] 2014 Medicare [id number] 2014 Medicare [id number] 1950 Unknown [id number] 2.16.840.1.743951.3.579.2. 627 1950 Unknown [id number] 2.16.840.1.708318.3.579.2. 627 Private Health Insurance [facility] HMO IN [facility] [id number] Unknown [id number] Unknown [id number] Unknown [id number] 2.16.840.1.503172.3.579.2. 462 Unknown [id number] 2.16.840.1.509485.3.579.2. 462 Unknown [id number] 2.16.840.1.852689.3.579.2. 462 Unknown [id number] 2.16.840.1.607829.3.579.2. 462 Unknown [id number] 2.16.840.1.164967.3.579.2. 462 Unknown [id number] 2.16.840.1.042510.3.579.2. 462 Unknown [id number] 2.16.840.1.239166.3.579.2. 462 Unknown [id number] 2.16.840.1.821652.3.579.2. 462 Unknown [id number] 2.16.840.1.544353.3.579.2. 462 Unknown [id number] 2.16.840.1.585763.3.579.2. 462 Unknown [id number] 2.16.840.1.393830.3.579.2. 462 Unknown [id number] 2.16.840.1.213868.3.579.2. 462 Unknown [id number] 2.16.840.1.182019.3.579.2. 462 Unknown [id number] 2.16.840.1.792171.3.579.2. 462 Unknown [id number] 2.16.840.1.164901.3.579.2. 462 Unknown [id number] 2.16.840.1.087751.3.579.2. 462 Unknown [id number] 2.16.840.1.471729.3.579.2. 462 Unknown [id number] 2.16.840.1.299539.3.579.2. 462 Unknown [id number] 2.16.840.1.112855.3.579.2. 462 Unknown [id number] 2.16.840.1.790143.3.579.2. 462 Unknown [id number] 2.16.840.1.574126.3.579.2. 462 Unknown [id number] 2.16.840.1.942611.3.579.2. 462 Unknown [id number] 2.16840.1.995981.3.579.2. 462 Social History Date Type Detail Facility Start: 04-10-2020 Tobacco smoking stat us NHIS Ex-smoker [facility] Start: 06-19-1964 History of tobacco use Cigarette Smo ker [facility] Start: 04-10-2020 End: 12-26-2022 Cigarettes smoked current (pack per day) - Reported 2 [facility] Start: 04-10-2020 End: 03-23-2024 Tobacco use and exposure Smokeless tobacco non-user [facility] Start: 08-26-2021 End: 12-12-2024 Alcohol intake Current non-drinker of alcohol (finding) [facility] Start: 04-16-2015 History SDOH Alcohol Comment History of alcohol abuse. I cut that out. [facility] Start: 12-17-2019 History SDOH Financial 5 [facility] Start: 12-17-2019 History SDOH Food Worry 2 [facility] Start: 12-17-2019 History SDOH Food Scarcity 1 [facility] Start: 08-22-2019 End: 01-31-2022 Tobacco Comment patient started using patches [facility] Start: 1950 Sex Assigned At Not on file [facility] Start: 10-12-2020 End: 03-10-2022 Exposure to SARS-CoV-2 (event) Not sure [facility] Start: 06-19-1964 End: 03-23-2024 Tobacco smoking status NHIS Smokes tobacco daily [facility] Start: 09-17-2021 End: 04-02-2023 Tobacco smoking status NHIS Unknown if ever smoked [facility] Start: 01-20-2021 None [facility] Start: 12-16-2019 Detention [facility] Start: 08-09-2020 Cigarettes [facility] Start: 1950 Sex Assigned At Male [facility] Start: 09-14-2021 End: 01-28-2022 Exposure to SARS-CoV-2 (event) Unable to assess [facility] Start: 05-14-2018 Tobacco smoking status Light t obacco smoker (finding) [facility] Sex Assigned At Sex [facility] Start: 12-17-2019 End: 12-26-2022 Tobacco use panel [facility] How hard is it for y ou to pay for the very basics like food, housing, medical care, and heating Not hard at all [facility] (I/We) worried massimo (my/our) food would run out before (I/we) got money to buy more. Sometimes true [facility] The food that (I/we) bought just didn't last, and (I/we) didn't have money to get more. Never true [facility] Start: [birth year]-19-1964 History of tobacco use Current smoke r [facility] Start: 08-25-2024 End: 08-25-2024 Tobacco smoking status NHIS Current some day smoker [facility] Start: 08-25-2024 End: 09-02-2024 Sex Male (finding) [facility] Medical Equipment Procedure Code Equipment Code Equipment Original Text Equipment Identifier Dates Graft [place] 7mm T hin Wall Heparin Propaten Ptfe 80cm 60cm Vascular Removable - [id number] Start: 10-10-2019 Patch Cv 8x.8cm Tapr Vsgrd Bov - [id number] Start: 10-23-2013 Comment on above: Description: Implant ed left femoral artery Patch Vascu-Guar d Taper Bovine Pericardial 8x.8cm Cardiovascular [place] - [id number] Start: 10-08-2019 Stent Palmaz Gen esis Opta Pro Flexsegment 8mm 40mm Large Stainless Steel 80 - [id number] Start: 10-08-2019 Stent Palmaz Gen esis Opta Pro Flexsegment 8mm 40mm Large Stainless Steel 80 - [id number] Start: 10-08-2019 Stent Trchbr 7mm 7fr 38mm 120 - [id number] Start: 10-23-2013 Comment on above: Description: Second stent lot #[id number]. exp. 03/2016 Stent Vasc 8mm 1 5cm 120cm .035 - [id number] Start: 10-23-2013 Comment on above: Description: Implant ed in left iliac artery Stent Trchbr 7mm 7fr 38mm 120 - [id number] Start: 10-23-2013 Stent Corey 10mm 8 0mm 120cm .035 - [id number] Start: 10-23-2013 Comment on above: Description: Implant ed in right iliac artery Stent Corey 10mm 8 0mm 120cm .035 - [id number] Start: 10-23-2013 Comment on above: Description: Implant ed in right iliac artery Stent Icast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 adjustments tomorrow if patient remains hypertensive Chronic medical problems: # Patient with noted history of COPD -Continue nebs #HX CAD/PAD/CVA -Continue home beta-joel and Plavix and statin # History of seizure disorder -Patient on Tegretol #Chronic BPH with obstruction -Continue home medications #Tobacco use -Advise cessation -Nicotine replacement available if desired #Depression/anxiety -Continue home medications #GERD -Continue PPI # Diarrhea?resolved -Unclear etiology -Stool studies ordered -Respiratory panel ordered and is negative -08/27: Has not had any significant diarrhea, had 1 formed bowel movement earliertoday, diarrhea resolved # Anemia -08/27: Hemoglobin 12.8, was 14.2 on presentation, no noted ongoing blood loss but will check FOBT. Will also repeat in this afternoon to verify no further drop. Will continue Plavix for now given no vital instability or overt bleedinglow threshold to hold if needed. Will change Lovenox to SCDs -08/28: Hemoglobin overall stable, no further workup at this time -08/29: Hemoglobin still stable, will not need to presently pursue any further workup #DVT ppx: SCDs Celia Toribio MD Allergies/Procedures Done in Hospital Allergies No Known Allergies Allergy (Verified 04/06/24 11:12) Type of Care/Length of Stay Estimated LOS: Convalescent Care Less Than 30 days Type of Care Needed: Skilled Rehab Potential: Good Prognosis: Good Additional Orders/Day of Discharge Day of Discharge: 09/02/24 Dietary and Speech Recommendations Dietitian Recommendations/Changes: Continue Cardiac diet as ordered Monitor for changes in pt nutritional status and make additional rec as indicated Discharge Plan Admission Admit Date/Time: 08/27/24 18:22 Attending Provider: Brody Maynard Primary Care Provider: Daija Morton Consulting Providers: Lisha Talamantes; Elton Moore; Celia Toribio Discharge Orders/Prescriptions Prescriptions: New clonidine HCl 0.1 mg Tablet 0.1 mg PO TID Qty: 0 0RF Rx Instructions: Hold for heart less than 50 or systolic blood pressure less than 140 mmHg. dextromethorphan-guaifenesin 60-1,200 mg tablet extended release 12 hr 1 tab PO BID 7 Days Qty: 14 0RF nicotine 14 mg/24 hr Patch 24 Hour 14 mg transdermal DAILY 28 Days Qty: 28 0RF prednisone 20 mg Tablet 40 mg PO BREAKFAST 1 Days Qty: 2 0RF Rx Instructions: For 1 more day tomorrow 09/03/2024 Continued albuterol sulfate 90 mcg/actuation HFA aerosol inhaler 1 puff inhalation Q8H carbamazepine 200 mg tablet extended release 12 hr 200 mg PO Q12H guaifenesin 100 mg/5 mL liquid 200 mg PO Q4H PRN (Reason: congestion) sertraline 100 mg tablet 100 mg PO DAILY cholecalciferol (vitamin D3) 50 mcg (2,000 unit) tablet 50 mcg PO DAILY tamsulosin 0.4 MG capsule 0.4 mg PO QHS Patient Comments: Prostate and urine finasteride 5 MG tablet 5 mg PO DAILY Patient Comments: prostate atorvastatin 40 MG tablet 40 mg PO QHS Patient Comments: CHOLESTEROL mirtazapine 15 MG tablet 15 mg PO QHS clopidogrel 75 MG tablet 75 mg PO DAILY losartan 100 mg tablet 100 mg PO DAILY pantoprazole 40 mg tablet,delayed release (DR/EC) 40 mg PO DAILY nifedipine 90 mg tablet extended release 90 mg PO DAILY alendronate 70 mg tablet 70 mg PO QWEEK Qty: 1 0RF metoprolol tartrate 25 mg tablet 25 mg PO DAILY sennosides-docusate sodium [Stool Softener-Stimulant Laxat] 8.6-50 mg Tablet 2 tab PO BID PRN PRN (Reason: Constipation) Qty: 0 0RF acetaminophen 500 mg Tablet 1,000 mg PO Q8 30 Days Qty: 0 0RF ergocalciferol (vitamin D2) [Vitamin D2] 1,250 mcg (50,000 unit) Capsule 1,250 mcg PO Q7D Qty: 0 0RF Discontinued clonidine HCl 0.1 mg tablet 0.1 mg PO BID Referrals / Follow Up: Daija Morton MD [Primary Care Provider] - Disposition Disposition (needs filled in before D/C Order can be placed): [facility] 09/02/24 8974 <Electronically signed by Brody Maynard MD> Cosigner Signature (if applicable): CC: Dr. Daija Morton MD; Dr. Lisha Talamantes DO; Dr. Celia Toribio MD; Dr. Ashley MD ~ [facility] Work Phone: [phone] Progress note Author [facility] Note Date/Time September 02, 2024 2:2 8pm [facility] Medical Records Department [address] [place] [id number] Progress Note - Infect Disease 09/02/24 1425 MR#: [id number] Acct: [id number] Name: PEDRO PABLO SIERRA Shannan Rep #:[id number] : 1950 74 From: Elton pierce MD PCP: Dr. Daija Morton MD Status:ADM I N Location: [facility] [id number] Physical Exam Narrative C/o some dysuria. No fever, no abd pain Const alert and no apparent distress General Appearance: cooperative Resp normal air movement and clear to auscultation bilaterally Cardio regular rate and regular rhythm GI soft to palpation, non-tender and non-distended Skin no rashes or lesions noted ID ID: Route of nutrition/ use of supplements: [] Nutritional Intake: [] IV Site: [] Clark Catheter: [] Assessment & Plan Assessment/Plan (1) Weakness: (2) Failure to thrive: QUALIFIERS: Failure to thrive age range: in adult Qualified Code(s): R62.7 - Adult failure to thrive PLAN: Ucx with ESBL ecoli, UA with 25-50 wbc. Now with urinary sx. Macrobid less effective with decreasing GFR. Will change to meropenem. If leaves soon, would give one dose fosfomycin 3gm po before discharge. Will follow 09/02/24 1428 <Electronically signed by Elton Moore MD> Cosigner Signature (if applicable): CC: ~ Signed [facility] Work Phone: [phone] Discharge summary [facility] Medical Records Department [address] [place] [address] Discharge Summary 09/02/24 9925 MR#: [id number] Acct: [id number] Name: PEDRO PABLO SIERRA Rep #:[id number] : 1950 74 From: Brody Damon PCP: Dr. Daija Morton MD Status:ADM I N Location: [place] [address] Providers Date of Admission: 08/27/24 Date of Discharge: 09/02/24 Primary Care Physician: Dr. Daija Morton MD Consultations 08/29/24 11:06 Consult: Infectious Disease Routine Consulting Provider: Elton Moore Reason for Consult: ESBL UTI, pending placement acceptance EMERGENT Consult: No MD Notified: Yes Date Notified: 08/29/24 Time Notified: 11:09 Method of Notification: Text Reason For Visit: FAILURE TO THRIVE Diagnosis Discharge Diagnosis (1) Weakness: Status: Acute Code(s): R53.1 - Weakness (2) Acute diarrhea: Status: Acute Code(s): R19.7 - Diarrhea, unspecified Plan This is 74-year-old gentleman was admitted with recurrent diarrhea, generalized weakness after recent discharge from [facility]. Patient was found to have UTI, ESBL E. coli. He also has mild COPD exacerbation. # Generalized weakness/debility/failure to thrive -Patient recently had been at [facility] and was discharged 08/20/2024 buthas been having diarrhea since that time -May be due to diarrhea but cannot say definitively, checking UA -PT/OT -08/27: UA ordered, yet to be collected, will follow-up, continue to work with physical therapy, case management social work following -08/28: Patient now agreeable to placement, placement avenues been pursued -08/29: Patient pending acceptance and pre-CERT for [facility], patient stable and willbe cleared for discharge once antibiotic and DC plan in place -08/30: Awaiting [facility] and APS determinations about payee so that patient can be placedat [facility], further dispo pending this -08/31: Patient accepted and pre-CERT pending -09/01: Patient requires placement, still awaiting insurance authorization 09/02: Pre-CERT authorized therefore being discharged to SNF. # Urinary tract infection?ESBL E. coli UTI -08/28: UA suggestive of UTI and urine culture positive for gram-negative rods, awaiting culture andsensitivity data, this may have contributed to some of patient's symptoms, patient will still benefit from placement -08/29: Patient growing ESBL E. coli, infectious disease consulted -08/30: Continue patient on Zosyn, ID consult pending -08/31: Patient transitioned to Macrobid, ID note reviewed -09/01: Tolerating Macrobid, continuing biotics and supportive care 09/02: ID follow-up appreciated. Discharge after 1 dose of fosfomycin 3 g oral. # Hypoxia, patient supposed to be on 3 L as needed at home-now mild COPD exacerbation -Patient 88% on room air now requiring 2 L of O2 -Chest x-ray with no acute abnormality -COVID and influenza negative, no tachycardia, tachypnea, shortness of breath orother indication that patient may have PE, it is possible there is component of atelectasis, incentive spirometer -Patient on nebs -No wheezing or other indication for IV steroids or that patient is having COPD exacerbation -08/27: Patient on nebs, per documentation he is supposed to be on 3 L as needed for his COPD, do not think there is an acute superimposed process at this time. He reports his breathing is at baseline, may just need to assess for updated O2 requirements on discharge -08/28: On every evaluation patient has his oxygen off and reports his breathing is at baseline -08/29: This a.m. patient 92% on room air -08/29: Patient presently on room air, continue nebs -08/30: Patient with some increased cough and is having wheezing, seems mild COPDexacerbation, nebs,brief oral steroid course for 5 days and oral azithromycin x3 days. Encourage incentive spirometer and mobilization. Will swab for COVID and respiratory panel -08/31: Patient adamantly refused respiratory panels, does seem to be doing better on oral steroids and azithromycin, wheezing resolved, will complete course for treatment for mild COPD exacerbation -09/01: Significantly improved, continue azithromycin and prednisone 09/02: Patient complained of mild cough. Patient had different rounds of antibiotics including ceftriaxone, azithromycin and Zosyn. Discussed with ID. Initially though ordered regimen but patient is being discharged today therefore1 dose of 3 g of fosfomycin ordered. #Hypertension -Continue clonidine, metoprolol, nifedipine, losartan -08/31: Remains hypertensive, metoprolol tartrate was only once daily, this was changed to twice daily especially given continued hypertension, clonidine also changed to 3 times daily for better control -09/01: BP variable, did get down to systolic in 120s yesterday but increased again, will need to continue to work on adjusting medications, did just have increasing clonidine tomorrow, can consider further adjustments tomorrow if patient remains hypertensive 09/02: Blood pressure is controlled Chronic medical problems: # Patient with noted history of COPD -Continue nebs #HX CAD/PAD/CVA -Continue home beta-joel and Plavix and statin # History of seizure disorder -Patient on Tegretol #Chronic BPH with obstruction -Continue home medications #Tobacco use -Advise cessation -Nicotine replacement available if desired #Depression/anxiety -Continue home medications #GERD -Continue PPI # Diarrhea?resolved -Unclear etiology -Stool studies ordered -Respiratory panel ordered and is negative -08/27: Has not had any significant diarrhea, had 1 formed bowel movement earliertoday, diarrhea resolved # Anemia -08/27: Hemoglobin 12.8, was 14.2 on presentation, no noted ongoing blood loss but will check FOBT. Will also repeat in this afternoon to verify no further drop. Will continue Plavix for now given no vital instability or overt bleedinglow threshold to hold if needed. Will change Lovenox to SCDs -08/28: Hemoglobin overall stable, no further workup at this time -08/29: Hemoglobin still stable, will not need to presently pursue any further workup #DVT ppx: SCDs Discharge medication reconciliation done. Discharge follow-up instructions completed. Discharge process discussed with the patient and all questions wereanswered to patient's satisfaction. Follow with PCP in 1 to 2 weeks Total time spent, exact 35 minutes on discharge meds reconciliation, examination, coordination of care with nurses and ancillary staff, review of imaging and blood test and discussion with the patient on follow-up instructions. Medications at Discharge Home Medications tamsulosin 0.4 mg capsule 0.4 mg PO QHS bph 01/26/14 finasteride 5 mg tablet 5 mg PO DAILY prostate 11/14/14 atorvastatin 40 mg tablet 40 mg PO QHS Cholesterol 09/23/15 mirtazapine 15 mg tablet 15 mg PO QHS anti depressant 08/16/19 clopidogrel 75 mg tablet 75 mg PO DAILY blood thinner 10/25/19 losartan 100 mg tablet 100 mg PO DAILY Blood pressure 08/19/21 pantoprazole 40 mg tablet,delayed release 40 mg PO DAILY GERD 08/19/21 nifedipine 90 mg tablet,extended release 90 mg PO DAILY blood pressure 11/25/21 alendronate 70 mg tablet 70 mg PO QWEEK #1 TAB 11/30/21 metoprolol tartrate 25 mg tablet 25 mg PO DAILY Blood pressure 03/30/23 sennosides 8.6 mg-docusate sodium 50 mg tablet (Stool Softener-Stimulant Laxative) 2 tab PO BID PRNPRN Constipation #0 tabs 04/04/23 acetaminophen 500 mg tablet 1,000 mg (2 x 500 mg) PO Q8 30 days #0 tabs 07/26/23 albuterol sulfate 90 mcg/actuation aerosol inhaler 1 puff inhalation Q8H 08/22/23 carbamazepine 200 mg tablet,extended release,12 hr 200 mg PO Q12H 08/22/23 cholecalciferol (vitamin D3) 50 mcg (2,000 unit) tablet 50 mcg PO DAILY 08/22/23 guaifenesin 100 mg/5 mL oral liquid 200 mg PO Q4H PRN congestion 08/22/23 sertraline 100 mg tablet 100 mg PO DAILY 08/22/23 ergocalciferol (vitamin D2) 1,250 mcg (50,000 unit) capsule (Vitamin D2) 1,250 mcg PO Q7D #0 caps 04/10/24 clonidine HCl 0.1 mg tablet 0.1 mg PO TID #0 tabs 09/02/24 dextromethorphan-guaifenesin ER 60 mg-1,200 mg tab,extend release,12hr 1 tab PO BID 7 days #14 tabs09/02/24 nicotine 14 mg/24 hr daily transdermal patch 14 mg transdermal DAILY 28 days #28ea 09/02/24 prednisone 20 mg tablet 40 mg (2 x 20 mg) PO BREAKFAST 1 day #2 tabs 09/02/24 Physical Exam Narrative Seen and examined Patient complained of mild cough.. ESBL E. coli on urine culture. Patient changes the topic during history taking. Physical exam General: Alert, Oriented x3, Cooperative HEENT: Atraumatic, PERRLA, EOMI, Normocephalic Oral: No Gingival or Mucosal Lesions/ Ulcerations Neck: Supple, No JVD, Negative Carotid Bruits Chest wall/Lungs: Air entry diminished in bilateral lung bases. No crepitation/rhonchi Cardiovascular: Regular rate, Regular Rhythm, Normal S1, Normal S2, No M/G/R Abdomen: Bowel Sounds Present, Soft, Non Tender, Non-Distended : No dysuria. No renal angle tenderness. No suprapubic tenderness. Extremities: No edema, Capillary Refill Less than 3 Seconds Skin: No rashes, No breakdown Musculoskeletal: No Tenderness to Palpation of Joints or Extremities. Muscle strength 4+/5 at kneesand hip joints. Numbness of the left leg, chronic. Neurological: Cranial nerves II-XII grossly intact, DTR 2+/4. No acute focal neurological deficit. Psych/Mental Status: Flat affect Weight / BMI Weight Weight: 150 lb 9.211 oz Body Mass Index (BMI) 22.8 ABG / Lab / Microbiology Data 09/01/24 05:26 09/02/24 05:22 Laboratory: Laboratory Results - last 24 hr 09/02/24 05:22: Sodium 138, Potassium 4.0, Chloride 106, Carbon Dioxide 20.8 L, Anion Gap 11, BUN 33 H, Creatinine 1.22 H, Estim Creat Clear Calc 50.54, Est GFR(MDRD) Non-Af 62, BUN/Creatinine Ratio 27.0 H, Glucose 99, Calcium 9.2 Microbiology: Microbiology 08/27/24 12:25 Urine, Clean Catch Urine Culture - Preliminary ESBL Escherichia coli 08/26/24 10:09 Mucosa - Nasopharyngeal Respiratory Panel (PCR) - Final 08/26/24 10:20 Nasal Secretion SARS-CoV-2 Antigen (Rapid) - Final D/C Instructions DC O2, CPAP, BIPAP Needs Home O2 Discharge instructions: No Meaningful Use Info Meaningful Use Meaningful Use Diagnoses (Choose all that apply): None applicable Ischemic Stroke Statin Dosing Therapy Reference: STATIN DOSE THERAPY REFERENCE: * Patients > 75 years receive moderate or high dose statin therapy. * Patients 75 years or YOUNGER should receive HIGH intensity statin dose unless contraindicated. You will be required to document reason for non-treatment if statin daily dose does not meet guidelines. HIGH DOSE STATIN THERAPY DAILY Atorvastatin > than or = to 40 mg Rosuvastatin > than or = to 20 mg Amlodipine + Atorvastatin > than or = to 2.5/40 mg Ezetimibe + Simvastatin 10/80 mg Simvastatin 80mg Discharge Plan Admission Admit Date/Time: 08/27/24 18:22 Attending Provider: Brody Maynard Primary Care Provider: Daija Morton Consulting Providers: Lisha Talamantes; Elton Moore; Celia Toribio Discharge Orders/Prescriptions Prescriptions: New clonidine HCl 0.1 mg Tablet 0.1 mg PO TID Qty: 0 0RF Rx Instructions: Hold for heart less than 50 or systolic blood pressure less than 140 mmHg. dextromethorphan-guaifenesin 60-1,200 mg tablet extended release 12 hr 1 tab PO BID 7 Days Qty: 14 0RF nicotine 14 mg/24 hr Patch 24 Hour 14 mg transdermal DAILY 28 Days Qty: 28 0RF prednisone 20 mg Tablet 40 mg PO BREAKFAST 1 Days Qty: 2 0RF Rx Instructions: For 1 more day tomorrow 09/03/2024 Continued albuterol sulfate 90 mcg/actuation HFA aerosol inhaler 1 puff inhalation Q8H carbamazepine 200 mg tablet extended release 12 hr 200 mg PO Q12H guaifenesin 100 mg/5 mL liquid 200 mg PO Q4H PRN (Reason: congestion) sertraline 100 mg tablet 100 mg PO DAILY cholecalciferol (vitamin D3) 50 mcg (2,000 unit) tablet 50 mcg PO DAILY tamsulosin 0.4 MG capsule 0.4 mg PO QHS Patient Comments: Prostate and urine finasteride 5 MG tablet 5 mg PO DAILY Patient Comments: prostate atorvastatin 40 MG tablet 40 mg PO QHS Patient Comments: CHOLESTEROL mirtazapine 15 MG tablet 15 mg PO QHS clopidogrel 75 MG tablet 75 mg PO DAILY losartan 100 mg tablet 100 mg PO DAILY pantoprazole 40 mg tablet,delayed release (DR/EC) 40 mg PO DAILY nifedipine 90 mg tablet extended release 90 mg PO DAILY alendronate 70 mg tablet 70 mg PO QWEEK Qty: 1 0RF metoprolol tartrate 25 mg tablet 25 mg PO DAILY sennosides-docusate sodium [Stool Softener-Stimulant Laxat] 8.6-50 mg Tablet 2 tab PO BID PRN PRN (Reason: Constipation) Qty: 0 0RF acetaminophen 500 mg Tablet 1,000 mg PO Q8 30 Days Qty: 0 0RF ergocalciferol (vitamin D2) [Vitamin D2] 1,250 mcg (50,000 unit) Capsule 1,250 mcg PO Q7D Qty: 0 0RF Discontinued clonidine HCl 0.1 mg tablet 0.1 mg PO BID Referrals / Follow Up: Daija Morton MD [Primary Care Provider] - Elton Moore MD [Med Staff - Active Staff] - Within 1 Month (As needed for ESBL UTI) Disposition Disposition (needs filled in before D/C Order can be placed): [facility] Charges/Coding Visit Charges Inpatient E&M: 98621 Disch Hosp >30min 09/02/24 1509 Cosigner Signature (if applicable): CC: Dr. Daija Morton MD; Dr. Brody Maynard MD~ Signed [facility] Dis[facility] summary [facility] Medical Records Department [address] [place] [address] Transfer to [facility] MR#: [id number] Acct: [id number] Name: PEDRO PABLO SIERRA Rep #:[id number] : 1950 74 From: Brody Damon PCP: Dr. Daija Morton MD Status:ADM I N Certification of patient admission REQUIRED AT TIME OF ADMISSION. I CERTIFY THAT POST-HOSPITAL ECF SERVICES ARE REQUIRED TO BE GIVEN ON AN IN-PATIENT BASIS BECAUSE OF THE ABOVE NAMED PATIENT'S NEED FOR RESIDENTIAL CARE ON A CONTINUING BASIS FOR THE CONDITION(S) FOR WHICH HE/SHE WAS RECEIVING IN-PATIENT HOSPITAL SERVICES PRIOR TO HIS/HER TRANSFER TO THE [facility]. 09/02/24 1458 Diet Diet Order/Speech Therapy: 08/25/24 19:21 Diet: Cardiac - Heart Healthy Food consistency:: Regular Liquid Consistency:: Regular/Thin DC O2, CPAP, BIPAP needs Home O2 Discharge instructions: No Problem/Diagnosis (1) Weakness: Status: Acute Code(s): R53.1 - Weakness (2) Acute diarrhea: Status: Acute Code(s): R19.7 - Diarrhea, unspecified Plan # Generalized weakness/debility/failure to thrive -Patient recently had been at [facility] and was discharged 08/20/2024 buthas been having diarrhea since that time -May be due to diarrhea but cannot say definitively, checking UA -PT/OT -08/27: UA ordered, yet to be collected, will follow-up, continue to work with physical therapy, case management social work following -08/28: Patient now agreeable to placement, placement avenues been pursued -08/29: Patient pending acceptance and pre-CERT for [facility], patient stable and willbe cleared for discharge once antibiotic and DC plan in place -08/30: Awaiting [facility] and APS determinations about payee so that patient can be placedat [facility], further dispo pending this -08/31: Patient accepted and pre-CERT pending -09/01: Patient requires placement, still awaiting insurance authorization # Urinary tract infection?ESBL E. coli UTI -08/28: UA suggestive of UTI and urine culture positive for gram-negative rods, awaiting culture andsensitivity data, this may have contributed to some of patient's symptoms, patient will still benefit from placement -08/29: Patient growing ESBL E. coli, infectious disease consulted -08/30: Continue patient on Zosyn, ID consult pending -08/31: Patient transitioned to Macrobid, ID note reviewed -09/01: Tolerating Macrobid, continuing biotics and supportive care # Hypoxia, patient supposed to be on 3 L as needed at home-now mild COPD exacerbation -Patient 88% on room air now requiring 2 L of O2 -Chest x-ray with no acute abnormality -COVID and influenza negative, no tachycardia, tachypnea, shortness of breath orother indication that patient may have PE, it is possible there is component of atelectasis, incentive spirometer -Patient on nebs -No wheezing or other indication for IV steroids or that patient is having COPD exacerbation -08/27: Patient on nebs, per documentation he is supposed to be on 3 L as needed for his COPD, do not think there is an acute superimposed process at this time. He reports his breathing is at baseline, may just need to assess for updated O2 requirements on discharge -08/28: On every evaluation patient has his oxygen off and reports his breathing is at baseline -08/29: This a.m. patient 92% on room air -08/29: Patient presently on room air, continue nebs -08/30: Patient with some increased cough and is having wheezing, seems mild COPDexacerbation, nebs,brief oral steroid course for 5 days and oral azithromycin x3 days. Encourage incentive spirometer and mobilization. Will swab for COVID and respiratory panel -08/31: Patient adamantly refused respiratory panels, does seem to be doing better on oral steroids and azithromycin, wheezing resolved, will complete course for treatment for mild COPD exacerbation -09/01: Significantly improved, continue azithromycin and prednisone #Hypertension -Continue clonidine, metoprolol, nifedipine, losartan -08/31: Remains hypertensive, metoprolol tartrate was only once daily, this was changed to twice daily especially given continued hypertension, clonidine also changed to 3 times daily for better control -09/01: BP variable, did get down to systolic in 120s yesterday but increased again, will need to continue to work on adjusting medications, did just have increasing clonidine tomorrow, can consider further adjustments tomorrow if patient remains hypertensive Chronic medical problems: # Patient with noted history of COPD -Continue nebs #HX CAD/PAD/CVA -Continue home beta-joel and Plavix and statin # History of seizure disorder -Patient on Tegretol #Chronic BPH with obstruction -Continue home medications #Tobacco use -Advise cessation -Nicotine replacement available if desired #Depression/anxiety -Continue home medications #GERD -Continue PPI # Diarrhea?resolved -Unclear etiology -Stool studies ordered -Respiratory panel ordered and is negative -08/27: Has not had any significant diarrhea, had 1 formed bowel movement earliertoday, diarrhea resolved # Anemia -08/27: Hemoglobin 12.8, was 14.2 on presentation, no noted ongoing blood loss but will check FOBT. Will also repeat in this afternoon to verify no further drop. Will continue Plavix for now given no vital instability or overt bleedinglow threshold to hold if needed. Will change Lovenox to SCDs -08/28: Hemoglobin overall stable, no further workup at this time -08/29: Hemoglobin still stable, will not need to presently pursue any further workup #DVT ppx: SCDs Celia Toribio MD Allergies/Procedures Done in Hospital Allergies No Known Allergies Allergy (Verified 04/06/24 11:12) Type of Care/Length of Stay Estimated LOS: Convalescent Care Less Than 30 days Type of Care Needed: Skilled Rehab Potential: Good Prognosis: Good Additional Orders/Day of Discharge Day of Discharge: 09/02/24 Dietary and Speech Recommendations Dietitian Recommendations/Changes: Continue Cardiac diet as ordered Monitor for changes in pt nutritional status and make additional rec as indicated Discharge Plan Admission Admit Date/Time: 08/27/24 18:22 Attending Provider: Brody Maynard Primary Care Provider: Daija Morton Consulting Providers: Lisha Talamantes; Elton Moore; Celia Toribio Discharge Orders/Prescriptions Prescriptions: New clonidine HCl 0.1 mg Tablet 0.1 mg PO TID Qty: 0 0RF Rx Instructions: Hold for heart less than 50 or systolic blood pressure less than 140 mmHg. dextromethorphan-guaifenesin 60-1,200 mg tablet extended release 12 hr 1 tab PO BID 7 Days Qty: 14 0RF nicotine 14 mg/24 hr Patch 24 Hour 14 mg transdermal DAILY 28 Days Qty: 28 0RF prednisone 20 mg Tablet 40 mg PO BREAKFAST 1 Days Qty: 2 0RF Rx Instructions: For 1 more day tomorrow 09/03/2024 Continued albuterol sulfate 90 mcg/actuation HFA aerosol inhaler 1 puff inhalation Q8H carbamazepine 200 mg tablet extended release 12 hr 200 mg PO Q12H guaifenesin 100 mg/5 mL liquid 200 mg PO Q4H PRN (Reason: congestion) sertraline 100 mg tablet 100 mg PO DAILY cholecalciferol (vitamin D3) 50 mcg (2,000 unit) tablet 50 mcg PO DAILY tamsulosin 0.4 MG capsule 0.4 mg PO QHS Patient Comments: Prostate and urine finasteride 5 MG tablet 5 mg PO DAILY Patient Comments: prostate atorvastatin 40 MG tablet 40 mg PO QHS Patient Comments: CHOLESTEROL mirtazapine 15 MG tablet 15 mg PO QHS clopidogrel 75 MG tablet 75 mg PO DAILY losartan 100 mg tablet 100 mg PO DAILY pantoprazole 40 mg tablet,delayed release (DR/EC) 40 mg PO DAILY nifedipine 90 mg tablet extended release 90 mg PO DAILY alendronate 70 mg tablet 70 mg PO QWEEK Qty: 1 0RF metoprolol tartrate 25 mg tablet 25 mg PO DAILY sennosides-docusate sodium [Stool Softener-Stimulant Laxat] 8.6-50 mg Tablet 2 tab PO BID PRN PRN (Reason: Constipation) Qty: 0 0RF acetaminophen 500 mg Tablet 1,000 mg PO Q8 30 Days Qty: 0 0RF ergocalciferol (vitamin D2) [Vitamin D2] 1,250 mcg (50,000 unit) Capsule 1,250 mcg PO Q7D Qty: 0 0RF Discontinued clonidine HCl 0.1 mg tablet 0.1 mg PO BID Referrals / Follow Up: Daija Morton MD [Primary Care Provider] - Disposition Disposition (needs filled in before D/C Order can be placed): [facility] 09/02/24 [id number] Cosigner Signature (if applicable): CC: Dr. Daija Morton MD; Dr. Lisha Talamantes DO; Dr. Celia Toribio MD; Dr. Ashley MD ~ [facility]03-17-2025 Progress note [facility] Medical Records Department [address] [place] [address] Progress Note - Infect Disease 09/02/24 1425 MR#: [id number] Acct: [id number] Name: PEDRO PABLO SIERRA Shannan Rep #:[id number] : 1950 74 From: Elton pierce MD PCP: Dr. Daija Morton MD Status:ADM I N Location: MS3 [id number] Physical Exam Narrative C/o some dysuria. No fever, no abd pain Const alert and no apparent distress General Appearance: cooperative Resp normal air movement and clear to auscultation bilaterally Cardio regular rate and regular rhythm GI soft to palpation, non-tender and non-distended Skin no rashes or lesions noted ID ID: Route of nutrition/ use of supplements: [] Nutritional Intake: [] IV Site: [] Clark Catheter: [] Assessment & Plan Assessment/Plan (1) Weakness: (2) Failure to thrive: QUALIFIERS: Failure to thrive age range: in adult Qualified Code(s): R62.7 - Adult failure to thrive PLAN: Ucx with ESBL ecoli, UA with 25-50 wbc. Now with urinary sx. Macrobid less effective with decreasing GFR. Will change to meropenem. If leaves soon, would give one dose fosfomycin 3gm po before discharge. Will follow 09/02/24 1428 Cosigner Signature (if applicable): CC: ~ Signed [facility]03-16-2025 Progress note Author Celia Toribio [facility] Note Date/Time September 01, 2024 11: 27am [facility] Medical Records Department [address] [place] [address] Progress Note - Hospitalist 09/01/24 0758 MR#: [id number] Acct: [id number] Name: PEDRO PABLO SIERRA Shannan Rep #:[id number] : 1950 74 From: Celia Toribio MD PCP: Dr. Daija Morton MD Status:ADM I N Location: [place] [address] Reason for Visit Reason for Visit: Diagnoses Diarrhea, unspecified (08/27/24) Weakness (08/27/24) Other malaise (08/27/24) Adult failure to thrive (08/27/24) Subjective Subjective Patient reports he did not sleep well last night, also has an aching left side of his neck, no other new acute complaints Objective Data Objective Data Vital Signs: Vital Signs Temp Pulse Resp BP Pulse Ox O2 Del Method O2 Flow Rate 97.5 F L 58 L 16 167/88 H 93 Room Air 2 09/01/24 05:32 09/01/24 05:32 09/01/24 05:32 09/01/24 05:32 09/01/24 05:32 09/01/24 06:50 08/31/24 21:30 Oxygen Flow Rate (L/min) 2 Oxygen Delivery Method Room Air Weight: 67.6 kg Body Mass Index (BMI) 22.6 Intake & Output: Intake and Output for Last 24 Hours 08/30/24 08/31/24 09/01/24 23:59 23:59 23:59 Intake Total 600 / 600 820 / 1020 350 / 350 Output Total 200 / 200 400 / 400 Balance 400 / 400 820 / 1020 -50 / -50 Lab / Micro Data 09/01/24 05:26 09/01/24 05:26 Labs: Laboratory Results - last 24 hr 08/31/24 06:37: Sodium 138, Potassium 3.8, Chloride 102, Carbon Dioxide 21.5, Anion Gap 15, BUN 30 H, Creatinine 1.16, Estim Creat Clear Calc 52.61, Est GFR (MDRD) Non-Af 66, BUN/Creatinine Ratio 25.7 H, Glucose 93, Calcium 10.0 09/01/24 05:26: WBC 6.9, RBC 4.49 L, Hgb 14.1, Hct 43.2, MCV 96.2 H, MCH 31.4, MCHC 32.6, RDW Std Deviation 47.4 H, RDW Coeff of Aly 13.3, Plt Count 367, MPV 9.5, Immature Gran % (Auto) 0.600, Neut % (Auto) 70.9 H, Lymph % (Auto) 20.9, Phelps % (Auto) 6.2, Eos % (Auto) 0.4, Baso % (Auto) 1.0, Absolute Neuts (auto) 4.9, Absolute Lymphs (auto) 1.45, Nucleated RBC % 0, Sodium 139, Potassium 3.8, Chloride 103, Carbon Dioxide 19.4 L, Anion Gap 16 H, BUN 40 H, Creatinine 1.33 H, Estim Creat Clear Calc 45.89 L, Est GFR (MDRD) Non-Af 56 L, BUN/Creatinine Ratio 30.2 H, Glucose 83, Calcium 9.7 Micro: Microbiology 08/27/24 12:25 Urine, Clean Catch Urine Culture - Preliminary ESBL Escherichia coli 08/26/24 10:09 Mucosa - Nasopharyngeal Respiratory Panel (PCR) - Final 08/26/24 10:20 Nasal Secretion SARS-CoV-2 Antigen (Rapid) - Final Physical Exam Narrative General: Alert, no apparent distress HEENT: Atraumatic Eyes: Anicteric, Neck: Supple Respiratory: Normal respiratory effort with wheezing resolved Cardiovascular: Regular rate GI: Soft, nondistended, nontender to palpation, no rebound, guarding, rigidity Extremities: No edema Musculoskeletal: Moving all extremities Neuro: No overt focal neurological deficits Skin: No rashes appreciated Psych: Overall cooperative Assessment & Plan Assessment/Plan (1) Weakness: (2) Acute diarrhea: PLAN: Plan # Generalized weakness/debility/failure to thrive -Patient recently had been at [facility] and was discharged 08/20/2024 buthas been having diarrhea since that time -May be due to diarrhea but cannot say definitively, checking UA -PT/OT -08/27: UA ordered, yet to be collected, will follow-up, continue to work with physical therapy, case management social work following -08/28: Patient now agreeable to placement, placement avenues been pursued -08/29: Patient pending acceptance and pre-CERT for [facility], patient stable and willbe cleared for discharge once antibiotic and DC plan in place -08/30: Awaiting [facility] and APS determinations about payee so that patient can be placed at [facility], further dispo pending this -08/31: Patient accepted and pre-CERT pending -09/01: Patient requires placement, still awaiting insurance authorization # Urinary tract infection?ESBL E. coli UTI -08/28: UA suggestive of UTI and urine culture positive for gram-negative rods, awaiting culture and sensitivity data, this may have contributed to some of patient's symptoms, patient will still benefit from placement -08/29: Patient growing ESBL E. coli, infectious disease consulted -08/30: Continue patient on Zosyn, ID consult pending -08/31: Patient transitioned to Macrobid, ID note reviewed -09/01: Tolerating Macrobid, continuing biotics and supportive care # Hypoxia, patient supposed to be on 3 L as needed at home-now mild COPD exacerbation -Patient 88% on room air now requiring 2 L of O2 -Chest x-ray with no acute abnormality -COVID and influenza negative, no tachycardia, tachypnea, shortness of breath orother indication that patient may have PE, it is possible there is component of atelectasis, incentive spirometer -Patient on nebs -No wheezing or other indication for IV steroids or that patient is having COPD exacerbation -08/27: Patient on nebs, per documentation he is supposed to be on 3 L as needed for his COPD, do not think there is an acute superimposed process at this time. He reports his breathing is at baseline, may just need to assess for updated O2 requirements on discharge -08/28: On every evaluation patient has his oxygen off and reports his breathing is at baseline -08/29: This a.m. patient 92% on room air -08/29: Patient presently on room air, continue nebs -08/30: Patient with some increased cough and is having wheezing, seems mild COPDexacerbation, nebs, brief oral steroid course for 5 days and oral azithromycin x3 days. Encourage incentive spirometer and mobilization. Will swab for COVID and respiratory panel -08/31: Patient adamantly refused respiratory panels, does seem to be doing better on oral steroids and azithromycin, wheezing resolved, will complete course for treatment for mild COPD exacerbation -09/01: Significantly improved, continue azithromycin and prednisone #Hypertension -Continue clonidine, metoprolol, nifedipine, losartan -08/31: Remains hypertensive, metoprolol tartrate was only once daily, this was changed to twice daily especially given continued hypertension, clonidine also changed to 3 times daily for better control -09/01: BP variable, did get down to systolic in 120s yesterday but increased again, will need to continue to work on adjusting medications, did just have increasing clonidine tomorrow, can consider further adjustments tomorrow if patient remains hypertensive Chronic medical problems: # Patient with noted history of COPD -Continue nebs #HX CAD/PAD/CVA -Continue home beta-joel and Plavix and statin # History of seizure disorder -Patient on Tegretol #Chronic BPH with obstruction -Continue home medications #Tobacco use -Advise cessation -Nicotine replacement available if desired #Depression/anxiety -Continue home medications #GERD -Continue PPI # Diarrhea?resolved -Unclear etiology -Stool studies ordered -Respiratory panel ordered and is negative -08/27: Has not had any significant diarrhea, had 1 formed bowel movement earliertoday, diarrhea resolved # Anemia -08/27: Hemoglobin 12.8, was 14.2 on presentation, no noted ongoing blood loss but will check FOBT. Will also repeat in this afternoon to verify no further drop. Will continue Plavix for now given no vital instability or overt bleedinglow threshold to hold if needed. Will change Lovenox to SCDs -08/28: Hemoglobin overall stable, no further workup at this time -08/29: Hemoglobin still stable, will not need to presently pursue any further workup #DVT ppx: SCDs Celia Toribio MD Charges/Coding Visit Charges Inpatient E&M: 27495 Subs Hosp L1 09/01/24 1127 <Electronically signed by Celia Toribio MD> Cosigner Signature (if applicable): CC: ~ Signed [facility] Work Phone: 1(571) 798-383103-16-2025 Progress note [facility] Medical Records Department [address] [place] [address] Progress Note - Hospitalist 09/01/24 0758 MR#: [id number] Acct: [id number] Name: PEDRO PABLO SIERRA Rep #:[id number] : 1950 74 From: Celia Toribio MD PCP: Dr. Daija Morton MD Status:ADM I N Location: [address] Reason for Visit Reason for Visit: Diagnoses Diarrhea, unspecified (08/27/24) Weakness (08/27/24) Other malaise (08/27/24) Adult failure to thrive (08/27/24) Subjective Subjective Patient reports he did not sleep well last night, also has an aching left side of his neck, no other new acute complaints Objective Data Objective Data Vital Signs: Vital Signs Temp Pulse Resp BP Pulse Ox O2 Del Method O2 Flow Rate 97.5 F L 58 L 16 167/88 H 93 Room Air 2 09/01/24 05:32 09/01/24 05:32 09/01/24 05:32 09/01/24 05:32 09/01/24 05:32 09/01/24 06:50 08/31/24 21:30 Oxygen Flow Rate (L/min) 2 Oxygen Delivery Method Room Air Weight: 67.6 kg Body Mass Index (BMI) 22.6 Intake & Output: Intake and Output for Last 24 Hours 08/30/24 08/31/24 09/01/24 23:59 23:59 23:59 Intake Total 600 / 600 820 / 1020 350 / 350 Output Total 200 / 200 400 / 400 Balance 400 / 400 820 / 1020 -50 / -50 Lab / Micro Data 09/01/24 05:26 09/01/24 05:26 Labs: Laboratory Results - last 24 hr 08/31/24 06:37: Sodium 138, Potassium 3.8, Chloride 102, Carbon Dioxide 21.5, Anion Gap 15, BUN 30 H, Creatinine 1.16, Estim Creat Clear Calc 52.61, Est GFR (MDRD) Non-Af 66, BUN/Creatinine Ratio 25.7 H, Glucose 93, Calcium 10.0 09/01/24 05:26: WBC 6.9, RBC 4.49 L, Hgb 14.1, Hct 43.2, MCV 96.2 H, MCH 31.4, MCHC 32.6, RDW Std Deviation 47.4 H, RDW Coeff of Aly 13.3, Plt Count 367, MPV 9.5, Immature Gran % (Auto) 0.600, Neut %(Auto) 70.9 H, Lymph % (Auto) 20.9, Phelps % (Auto) 6.2, Eos % (Auto) 0.4, Baso % (Auto) 1.0, Absolute Neuts (auto) 4.9, Absolute Lymphs (auto) 1.45, Nucleated RBC % 0, Sodium 139, Potassium 3.8, Chloride 103, Carbon Dioxide 19.4 L, Anion Gap 16 H, BUN 40 H, Creatinine 1.33 H, Estim Creat Clear Calc 45.89 L, Est GFR (MDRD) Non-Af 56 L, BUN/Creatinine Ratio 30.2 H, Glucose 83, Calcium 9.7 Micro: Microbiology 08/27/24 12:25 Urine, Clean Catch Urine Culture - Preliminary ESBL Escherichia coli 08/26/24 10:09 Mucosa - Nasopharyngeal Respiratory Panel (PCR) - Final 08/26/24 10:20 Nasal Secretion SARS-CoV-2 Antigen (Rapid) - Final Physical Exam Narrative General: Alert, no apparent distress HEENT: Atraumatic Eyes: Anicteric, Neck: Supple Respiratory: Normal respiratory effort with wheezing resolved Cardiovascular: Regular rate GI: Soft, nondistended, nontender to palpation, no rebound, guarding, rigidity Extremities: No edema Musculoskeletal: Moving all extremities Neuro: No overt focal neurological deficits Skin: No rashes appreciated Psych: Overall cooperative Assessment & Plan Assessment/Plan (1) Weakness: (2) Acute diarrhea: PLAN: Plan # Generalized weakness/debility/failure to thrive -Patient recently had been at [facility] and was discharged 08/20/2024 buthas been having diarrhea since that time -May be due to diarrhea but cannot say definitively, checking UA -PT/OT -08/27: UA ordered, yet to be collected, will follow-up, continue to work with physical therapy, case management social work following -08/28: Patient now agreeable to placement, placement avenues been pursued -08/29: Patient pending acceptance and pre-CERT for [facility], patient stable and willbe cleared for discharge once antibiotic and DC plan in place -08/30: Awaiting [facility] and [facility] determinations about payee so that patient can be placedat [facility], further dispo pending this -08/31: Patient accepted and pre-CERT pending -09/01: Patient requires placement, still awaiting insurance authorization # Urinary tract infection?ESBL E. coli UTI -08/28: UA suggestive of UTI and urine culture positive for gram-negative rods, awaiting culture andsensitivity data, this may have contributed to some of patient's symptoms, patient will still benefit from placement -08/29: Patient growing ESBL E. coli, infectious disease consulted -08/30: Continue patient on Zosyn, ID consult pending -08/31: Patient transitioned to Macrobid, ID note reviewed -09/01: Tolerating Macrobid, continuing biotics and supportive care # Hypoxia, patient supposed to be on 3 L as needed at home-now mild COPD exacerbation -Patient 88% on room air now requiring 2 L of O2 -Chest x-ray with no acute abnormality -COVID and influenza negative, no tachycardia, tachypnea, shortness of breath orother indication that patient may have PE, it is possible there is component of atelectasis, incentive spirometer -Patient on nebs -No wheezing or other indication for IV steroids or that patient is having COPD exacerbation -08/27: Patient on nebs, per documentation he is supposed to be on 3 L as needed for his COPD, do not think there is an acute superimposed process at this time. He reports his breathing is at baseline, may just need to assess for updated O2 requirements on discharge -08/28: On every evaluation patient has his oxygen off and reports his breathing is at baseline -08/29: This a.m. patient 92% on room air -08/29: Patient presently on room air, continue nebs -08/30: Patient with some increased cough and is having wheezing, seems mild COPDexacerbation, nebs,brief oral steroid course for 5 days and oral azithromycin x3 days. Encourage incentive spirometer and mobilization. Will swab for COVID and respiratory panel -08/31: Patient adamantly refused respiratory panels, does seem to be doing better on oral steroids and azithromycin, wheezing resolved, will complete course for treatment for mild COPD exacerbation -09/01: Significantly improved, continue azithromycin and prednisone #Hypertension -Continue clonidine, metoprolol, nifedipine, losartan -08/31: Remains hypertensive, metoprolol tartrate was only once daily, this was changed to twice daily especially given continued hypertension, clonidine also changed to 3 times daily for better control -09/01: BP variable, did get down to systolic in 120s yesterday but increased again, will need to continue to work on adjusting medications, did just have increasing clonidine tomorrow, can consider further adjustments tomorrow if patient remains hypertensive Chronic medical problems: # Patient with noted history of COPD -Continue nebs #HX CAD/PAD/CVA -Continue home beta-joel and Plavix and statin # History of seizure disorder -Patient on Tegretol #Chronic BPH with obstruction -Continue home medications #Tobacco use -Advise cessation -Nicotine replacement available if desired #Depression/anxiety -Continue home medications #GERD -Continue PPI # Diarrhea?resolved -Unclear etiology -Stool studies ordered -Respiratory panel ordered and is negative -08/27: Has not had any significant diarrhea, had 1 formed bowel movement earliertoday, diarrhea resolved # Anemia -08/27: Hemoglobin 12.8, was 14.2 on presentation, no noted ongoing blood loss but will check FOBT. Will also repeat in this afternoon to verify no further drop. Will continue Plavix for now given no vital instability or overt bleedinglow threshold to hold if needed. Will change Lovenox to SCDs -08/28: Hemoglobin overall stable, no further workup at this time -08/29: Hemoglobin still stable, will not need to presently pursue any further workup #DVT ppx: SCDs Celia Toribio MD Charges/Coding Visit Charges Inpatient E&M: 56838 Subs Hosp L1 09/01/24 1127 Cosigner Signature (if applicable): CC: ~ Signed [facility]03-15-2025 Progress note Author Celia Toribio [facility] Note Date/Time August 31, 2024 12: 30pm [facility] [place] [address] Progress Note - Hospitalist 08/31/24 0748 MR#: [id number] Acct: [id number] Name: PEDRO PABLO SIERRA Rep #:[id number] : 1950 74 From: Celia Toribio MD PCP: Dr. Daija Morton MD Status:ADM I N Location: [facility] [id number] Reason for Visit Reason for Visit: Diagnoses Diarrhea, unspecified (08/27/24) Weakness (08/27/24) Other malaise (08/27/24) Adult failure to thrive (08/27/24) Subjective Subjective Every day on evaluation patient reports he feels terrible though is always resting comfortably, complaints are vague, reports may be some GI upset but doesreport bowel movement earlier today, no vomiting, breathing improving Objective Data Objective Data Vital Signs: Vital Signs Temp Pulse Resp BP Pulse Ox O2 Del Method O2 Flow Rate 97.4 F L 75 14 160/70 H 92 Room Air 2 08/31/24 05:57 08/31/24 07:29 08/31/24 07:29 08/31/24 05:57 08/31/24 07:29 08/31/24 07:29 08/30/24 09:05 Oxygen Flow Rate (L/min) 2 Oxygen Delivery Method Room Air Weight: 67.6 kg Body Mass Index (BMI) 22.6 Intake & Output: Intake and Output for Last 24 Hours 08/29/24 08/30/24 08/31/24 23:59 23:59 23:59 Intake Total 966.67 / 966.67 600 / 600 100 / 100 Output Total 1225 / 1225 200 / 200 Balance -258.33 / -258.33 400 / 400 100 / 100 Lab / Micro Data 08/30/24 05:48 08/31/24 06:37 Labs: Laboratory Results - last 24 hr 08/30/24 05:48: Sodium 138, Potassium 4.2, Chloride 102, Carbon Dioxide 22.7, Anion Gap 13, BUN 26 H, Creatinine 1.21 H, Estim Creat Clear Calc 51.03, Est GFR(MDRD) Non-Af 62, BUN/Creatinine Ratio 21.4 H, Glucose 94, Calcium 10.1 Micro: Microbiology 08/27/24 12:25 Urine, Clean Catch Urine Culture - Preliminary ESBL Escherichia coli 08/26/24 10:09 Mucosa - Nasopharyngeal Respiratory Panel (PCR) - Final 08/26/24 10:20 Nasal Secretion SARS-CoV-2 Antigen (Rapid) - Final Physical Exam Narrative General: Alert, no apparent distress HEENT: Atraumatic Eyes: Anicteric, Neck: Supple Respiratory: Normal respiratory effort with wheezing resolved Cardiovascular: Regular rate GI: Soft, nondistended, nontender to palpation, no rebound, guarding, rigidity Extremities: No edema Musculoskeletal: Moving all extremities Neuro: No overt focal neurological deficits Skin: No rashes appreciated Psych: Overall cooperative Assessment & Plan Assessment/Plan (1) Weakness: (2) Acute diarrhea: PLAN: Plan # Generalized weakness/debility/failure to thrive -Patient recently had been at [facility] and was discharged 08/20/2024 buthas been having diarrhea since that time -May be due to diarrhea but cannot say definitively, checking UA -PT/OT -08/27: UA ordered, yet to be collected, will follow-up, continue to work with physical therapy, case management social work following -08/28: Patient now agreeable to placement, placement avenues been pursued -08/29: Patient pending acceptance and pre-CERT for cc, patient stable and willbe cleared for discharge once antibiotic and DC plan in place -08/30: Awaiting [facility] and [facility] determinations about payee so that patient can be placed at [facility], further dispo pending this -08/31: Patient accepted and pre-CERT pending # Urinary tract infection?ESBL E. coli UTI -08/28: UA suggestive of UTI and urine culture positive for gram-negative rods, awaiting culture and sensitivity data, this may have contributed to some of patient's symptoms, patient will still benefit from placement -08/29: Patient growing ESBL E. coli, infectious disease consulted -08/30: Continue patient on Zosyn, ID consult pending -08/31: Patient transitioned to Macrobid, ID note reviewed # Hypoxia, patient supposed to be on 3 L as needed at home-now mild COPD exacerbation -Patient 88% on room air now requiring 2 L of O2 -Chest x-ray with no acute abnormality -COVID and influenza negative, no tachycardia, tachypnea, shortness of breath orother indication that patient may have PE, it is possible there is component of atelectasis, incentive spirometer -Patient on nebs -No wheezing or other indication for IV steroids or that patient is having COPD exacerbation -08/27: Patient on nebs, per documentation he is supposed to be on 3 L as needed for his COPD, do not think there is an acute superimposed process at this time. He reports his breathing is at baseline, may just need to assess for updated O2 requirements on discharge -08/28: On every evaluation patient has his oxygen off and reports his breathing is at baseline -08/29: This a.m. patient 92% on room air -08/29: Patient presently on room air, continue nebs -08/30: Patient with some increased cough and is having wheezing, seems mild COPDexacerbation, nebs, brief oral steroid course for 5 days and oral azithromycin x3 days. Encourage incentive spirometer and mobilization. Will swab for COVID and respiratory panel -08/31: Patient adamantly refused respiratory panels, does seem to be doing better on oral steroids and azithromycin, wheezing resolved, will complete course for treatment for mild COPD exacerbation #Hypertension -Continue clonidine, metoprolol, nifedipine, losartan -08/31: Remains hypertensive, metoprolol tartrate was only once daily, this was changed to twice daily especially given continued hypertension, clonidine also changed to 3 times daily for better control Chronic medical problems: # Patient with noted history of COPD -Continue nebs #HX CAD/PAD/CVA -Continue home beta-joel and Plavix and statin # History of seizure disorder -Patient on Tegretol #Chronic BPH with obstruction -Continue home medications #Tobacco use -Advise cessation -Nicotine replacement available if desired #Depression/anxiety -Continue home medications #GERD -Continue PPI # Diarrhea?resolved -Unclear etiology -Stool studies ordered -Respiratory panel ordered and is negative -08/27: Has not had any significant diarrhea, had 1 formed bowel movement earliertoday, diarrhea resolved # Anemia -08/27: Hemoglobin 12.8, was 14.2 on presentation, no noted ongoing blood loss but will check FOBT. Will also repeat in this afternoon to verify no further drop. Will continue Plavix for now given no vital instability or overt bleedinglow threshold to hold if needed. Will change Lovenox to SCDs -08/28: Hemoglobin overall stable, no further workup at this time -08/29: Hemoglobin still stable, will not need to presently pursue any further workup #DVT ppx: SCDs Celia Toribio MD Time spent in the patient's overall evaluation,decision-making process, review of diagnostic data, adjustment of management, discussion with other providers, nursing nursing and ancillary staff involved in patient's care documentation, 36minutes Charges/Coding Visit Charges Inpatient E&M: 34609 Subs Hosp L2 08/31/24 1230 <Electronically signed by Celia Toribio MD> Cosigner Signature (if applicable): CC: ~ Signed [facility] Work Phone: 1(141) [phone] Progress note [facility] Medical Records Department [address] [place] [address] Progress Note - Hospitalist 08/31/24 0748 MR#: [id number] Acct: [id number] Name: PEDRO PABLO SIERRA Rep #:[id number] : 1950 74 From: Celia Toribio MD PCP: Dr. Daija Morton MD Status:ADM I N [facility] Reason for Visit Reason for Visit: Diagnoses Diarrhea, unspecified (08/27/24) Weakness (08/27/24) Other malaise (08/27/24) Adult failure to thrive (08/27/24) Subjective Subjective Every day on evaluation patient reports he feels terrible though is always resting comfortably, complaints are vague, reports may be some GI upset but doesreport bowel movement earlier today, no vomiting, breathing improving Objective Data Objective Data Vital Signs: Vital Signs Temp Pulse Resp BP Pulse Ox O2 Del Method O2 Flow Rate 97.4 F L 75 14 160/70 H 92 Room Air 2 08/31/24 05:57 08/31/24 07:29 08/31/24 07:29 08/31/24 05:57 08/31/24 07:29 08/31/24 07:29 08/30/24 09:05 Oxygen Flow Rate (L/min) 2 Oxygen Delivery Method Room Air Weight: 67.6 kg Body Mass Index (BMI) 22.6 Intake & Output: Intake and Output for Last 24 Hours 08/29/24 08/30/24 08/31/24 23:59 23:59 23:59 Intake Total 966.67 / 966.67 600 / 600 100 / 100 Output Total 1225 / 1225 200 / 200 Balance -258.33 / -258.33 400 / 400 100 / 100 Lab / Micro Data 08/30/24 05:48 08/31/24 06:37 Labs: Laboratory Results - last 24 hr 08/30/24 05:48: Sodium 138, Potassium 4.2, Chloride 102, Carbon Dioxide 22.7, Anion Gap 13, BUN 26 H, Creatinine 1.21 H, Estim Creat Clear Calc 51.03, Est GFR(MDRD) Non-Af 62, BUN/Creatinine Ratio 21.4 H, Glucose 94, Calcium 10.1 Micro: Microbiology 08/27/24 12:25 Urine, Clean Catch Urine Culture - Preliminary ESBL Escherichia coli 08/26/24 10:09 Mucosa - Nasopharyngeal Respiratory Panel (PCR) - Final 08/26/24 10:20 Nasal Secretion SARS-CoV-2 Antigen (Rapid) - Final Physical Exam Narrative General: Alert, no apparent distress HEENT: Atraumatic Eyes: Anicteric, Neck: Supple Respiratory: Normal respiratory effort with wheezing resolved Cardiovascular: Regular rate GI: Soft, nondistended, nontender to palpation, no rebound, guarding, rigidity Extremities: No edema Musculoskeletal: Moving all extremities Neuro: No overt focal neurological deficits Skin: No rashes appreciated Psych: Overall cooperative Assessment & Plan Assessment/Plan (1) Weakness: (2) Acute diarrhea: PLAN: Plan # Generalized weakness/debility/failure to thrive -Patient recently had been at [facility] and was discharged 08/20/2024 buthas been having diarrhea since that time -May be due to diarrhea but cannot say definitively, checking UA -PT/OT -08/27: UA ordered, yet to be collected, will follow-up, continue to work with physical therapy, case management social work following -08/28: Patient now agreeable to placement, placement avenues been pursued -08/29: Patient pending acceptance and pre-CERT for [facility], patient stable and willbe cleared for discharge once antibiotic and DC plan in place -08/30: Awaiting [facility] and [facility] determinations about payee so that patient can be placedat [facility], further dispo pending this -08/31: Patient accepted and pre-CERT pending # Urinary tract infection?ESBL E. coli UTI -08/28: UA suggestive of UTI and urine culture positive for gram-negative rods, awaiting culture andsensitivity data, this may have contributed to some of patient's symptoms, patient will still benefit from placement -08/29: Patient growing ESBL E. coli, infectious disease consulted -08/30: Continue patient on Zosyn, ID consult pending -08/31: Patient transitioned to Macrobid, ID note reviewed # Hypoxia, patient supposed to be on 3 L as needed at home-now mild COPD exacerbation -Patient 88% on room air now requiring 2 L of O2 -Chest x-ray with no acute abnormality -COVID and influenza negative, no tachycardia, tachypnea, shortness of breath orother indication that patient may have PE, it is possible there is component of atelectasis, incentive spirometer -Patient on nebs -No wheezing or other indication for IV steroids or that patient is having COPD exacerbation -08/27: Patient on nebs, per documentation he is supposed to be on 3 L as needed for his COPD, do not think there is an acute superimposed process at this time. He reports his breathing is at baseline, may just need to assess for updated O2 requirements on discharge -08/28: On every evaluation patient has his oxygen off and reports his breathing is at baseline -08/29: This a.m. patient 92% on room air -08/29: Patient presently on room air, continue nebs -08/30: Patient with some increased cough and is having wheezing, seems mild COPDexacerbation, nebs,brief oral steroid course for 5 days and oral azithromycin x3 days. Encourage incentive spirometer and mobilization. Will swab for COVID and respiratory panel -08/31: Patient adamantly refused respiratory panels, does seem to be doing better on oral steroids and azithromycin, wheezing resolved, will complete course for treatment for mild COPD exacerbation #Hypertension -Continue clonidine, metoprolol, nifedipine, losartan -08/31: Remains hypertensive, metoprolol tartrate was only once daily, this was changed to twice daily especially given continued hypertension, clonidine also changed to 3 times daily for better control Chronic medical problems: # Patient with noted history of COPD -Continue nebs #HX CAD/PAD/CVA -Continue home beta-joel and Plavix and statin # History of seizure disorder -Patient on Tegretol #Chronic BPH with obstruction -Continue home medications #Tobacco use -Advise cessation -Nicotine replacement available if desired #Depression/anxiety -Continue home medications #GERD -Continue PPI # Diarrhea?resolved -Unclear etiology -Stool studies ordered -Respiratory panel ordered and is negative -08/27: Has not had any significant diarrhea, had 1 formed bowel movement earliertoday, diarrhea resolved # Anemia -08/27: Hemoglobin 12.8, was 14.2 on presentation, no noted ongoing blood loss but will check FOBT. Will also repeat in this afternoon to verify no further drop. Will continue Plavix for now given no vital instability or overt bleedinglow threshold to hold if needed. Will change Lovenox to SCDs -08/28: Hemoglobin overall stable, no further workup at this time -08/29: Hemoglobin still stable, will not need to presently pursue any further workup #DVT ppx: MARYSOLs Celia Toribio MD Time spent in the patient's overall evaluation,decision-making process, review of diagnostic data, adjustment of management, discussion with other providers, nursing nursing and ancillary staff involved in patient's care documentation, 36minutes Charges/Coding Visit Charges Inpatient E&M: 94473 Subs Hosp L2 08/31/24 1230 Cosigner Signature (if applicable): CC: ~ Signed [facility]03-14-2025 Consult note Author Elton Moore [facility] Note Date/Time August 30, 2024 1:4 6pm [facility] Medical Records Department [address] [place] [address] Consultation - Infectious Dx 08/30/24 1343 MR#: [id number] Acct: [id number] Name: PEDRO PABLO SIERRA Rep #:[id number] : 1950 74 From: Elton pierce MD PCP: Dr. Daija Morton MD Status:ADM I N Location: [place] [address]-1 Assessment & Plan Assessment/Plan (1) Weakness: (2) Failure to thrive: QUALIFIERS: Failure to thrive age range: in adult Qualified Code(s): R62.7 - Adult failure to thrive PLAN: Ucx with ESBL ecoli, UA with 25-50 wbc but denies urinary symptoms. On azithro for short course for presumed copd exacerbation. Will change zosyn to macrobid, plan on 5 day course for suspected uti. Will follow prn, thank you HPI Consult Data Date of Consult: 08/30/24 HPI Narrative Reason for Consultation: esbl infection HPI Narrative: PEDRO PABLO SIERRA, is a 74 M with h/o compression fracture of L-spine, htn, afib, presented 08/25 with several days weakness, unable to care for himself at home. Had been having some diarrhea, not feeling well. Some dry cough. No dysuria orurine changes. Now on zosyn for (+) ucx. Feeling ok today. Full ROS performed and neg except as noted above. [facility] Medical History Compression fx, lumbar spine Hypertension Falls Hypertension Closed fracture of right superior pubic ramus Multiple falls Compression fracture of thoracic vertebra History of atrial fibrillation Iron deficiency anemia Chronic respiratory failure with hypoxia Osteoporosis Lumbar compression fracture Compression fracture Obstructive sleep apnea Hyperlipidemia Asthma Peripheral arterial occlusive disease Seizure disorder Chronic obstructive pulmonary disease Coronary artery disease Lupus anticoagulant disorder BPH (benign prostatic hyperplasia) Ulcerative colitis Peripheral vascular disease Anxiety COPD (chronic obstructive pulmonary disease) with emphysema Closed fracture of right inferior pubic ramus Acute UTI COPD (chronic obstructive pulmonary disease) UTI (urinary tract infection) Depression Diabetes Kidney stones Chronic pain Pancreatitis On home oxygen therapy Irregular heart beat Atrial fibrillation Stroke/cerebrovascular accident Smoker Falls frequently Seizures Sleep apnea COPD (chronic obstructive pulmonary disease) Asthma High cholesterol Tobacco abuse Home Medications ?Medication ?Instructions ?Recorded ?Last Taken ?Type tamsulosin 0.4 mg capsule 0.4 mg PO QHS bph 01/26/14 1 History finasteride 5 mg tablet 5 mg PO DAILY prostate 11/1403/28/23 History atorvastatin 40 mg tablet 40 mg PO QHS Cholesterol 12/0203/28/23 History mirtazapine 15 mg tablet 15 mg PO QHS anti depressant 08/16/19 03/28/23 History clopidogrel 75 mg tablet 75 mg PO DAILY blood thinner 10/25/19 03/28/23 History losartan 100 mg tablet 100 mg PO DAILY Blood pressu re 08/19/21 03/28/23 History pantoprazole 40 mg tablet,delayed 40 mg PO DAILY GERD 08/19/21 03/28/23 History release nifedipine 90 mg tablet,extended 90 mg PO DAILY blood pressure 11/25/21 03/28/23 History release alendronate 70 mg tablet 70 mg PO QWEEK #1 TAB 03/28/23 Rx metoprolol tartrate 25 mg tablet 25 mg PO DAILY Blood pressure 03/30/23 03/28/23 History sennosides 8.6 mg-docusate sodium 2 tab PO BID PRN PRN Constipation 04/04/23 Unknown Rx 50 mg tablet (Stool #0 tabs Softener-Stimulant Laxative) acetaminophen 500 mg tablet 1,000 mg (2 x 500 mg) PO Q 8 30 07/26/23 Unknown Rx days #0 tabs albuterol sulfate 90 mcg/actuation 1 puff inhalation Q 8H 08/22/23 Unknown History aerosol inhaler carbamazepine 200 mg 200 mg PO Q12H 08/22/23 Unkn own History tablet,extended release,12 hr cholecalciferol (vitamin D3) 50 50 mcg PO DAILY Unknown History mcg (2,000 unit) tablet clonidine HCl 0.1 mg tablet 0.1 mg PO BID 08/22/23 Unk nown History guaifenesin 100 mg/5 mL oral liquid 200 mg PO Q4H PRN congestion 08/22/23 Unknown History sertraline 100 mg tablet 100 mg PO DAILY 08/22/23 Unk nown History ergocalciferol (vitamin D2) 1,250 1,250 mcg PO Q7D #0 caps 04/10/24 Unknown Rx mcg (50,000 unit) capsule (Vitamin D2) Allergy/AdvReac Type Severity Reaction Status Date / Time No Known Allergies Allergy Verified 04/06/24 11:12 Family History Other Heart disease Surgical History S/P arterial stent History of appendectomy Social History (Updated 08/25/24 @ 18:[address] 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 quit several years ago substance use type: does not use caffeine: Yes Type: coffee Number of servings: 3 Physical Exam Const alert and no apparent distress General Appearance: cooperative HEENT normocephalic and head/scalp atraumatic Eyes PERRL and EOMs intact bilaterally Neck supple and No nodes Resp normal air movement and clear to auscultation bilaterally Cardio regular rate and regular rhythm GI soft to palpation, non-tender and non-distended Extremity General Extremity: Negative for edema Skin no rashes or lesions noted Neuro CN's II-XII intact bilaterally Lab / Micro Data Attestation: I reviewed the patient's lab results. 08/30/24 05:48 08/30/24 05:48 Labs: Laboratory Results - last 24 hr 08/30/24 05:48: WBC 5.6, RBC 4.33 L, Hgb 13.8, Hct 41.8, MCV 96.5 H, MCH 31.9, MCHC 33.0, RDW Std Deviation 47.7 H, RDW Coeff of Aly 13.3, Plt Count 309, MPV 9.7, Immature Gran % (Auto) 0.400, Neut % (Auto) 64.8, Lymph % (Auto) 17.8 L, Phelps % (Auto) 7.6, Eos % (Auto) 7.8 H, Baso % (Auto) 1.6 H, Absolute Neuts (auto) 3.7, Absolute Lymphs (auto) 1.00, Nucleated RBC % 0, Sodium 138, Potassium 4.2, Chloride 102, Carbon Dioxide 22.7, Anion Gap 13, BUN 26 H, Creatinine 1.21 H, Estim Creat Clear Calc 51.03, Est GFR (MDRD) Non-Af 62, BUN/Creatinine Ratio 21.4 H, Glucose 94, Calcium 10.1 Micro: Microbiology 08/27/24 12:25 Urine, Clean Catch Urine Culture - Preliminary ESBL Escherichia coli 08/30/24 1346 <Electronically signed by Elton Moore MD> Cosigner Signature (if applicable): CC: Dr. Daija Morton MD~ Signed [facility] Work Phone: [phone] Consult note [facility] Medical Records Department [address] [place] [address] Consultation - Infectious Dx 08/30/24 1343 MR#: [id number] Acct: [id number] Name: PEDRO PABLO SIERRA Shannan Rep #:[id number] : 1950 74 From: Elton pierce MD PCP: Dr. Daija Morton MD Status:ADM I N Location: [place] [place]-8 Assessment & Plan Assessment/Plan (1) Weakness: (2) Failure to thrive: QUALIFIERS: Failure to thrive age range: in adult Qualified Code(s): R62.7 - Adult failure to thrive PLAN: Ucx with ESBL ecoli, UA with 25-50 wbc but denies urinary symptoms. On azithro for short course for presumed copd exacerbation. Will change zosyn to macrobid, plan on 5 day course for suspecteduti. Will follow prn, thank you HPI Consult Data Date of Consult: 08/30/24 HPI Narrative Reason for Consultation: esbl infection HPI Narrative: PEDRO PABLO SIERRA, is a 74 M with h/o compression fracture of L-spine, htn, afib, presented 08/25 with several days weakness, unable to care for himself at home. Had been having some diarrhea, not feeling well. Some dry cough. No dysuria orurine changes. Now on zosyn for (+) ucx. Feeling ok today. Full ROS performed and neg except as noted above. [facility] Medical History Compression fx, lumbar spine Hypertension Falls Hypertension Closed fracture of right superior pubic ramus Multiple falls Compression fracture of thoracic vertebra History of atrial fibrillation Iron deficiency anemia Chronic respiratory failure with hypoxia Osteoporosis Lumbar compression fracture Compression fracture Obstructive sleep apnea Hyperlipidemia Asthma Peripheral arterial occlusive disease Seizure disorder Chronic obstructive pulmonary disease Coronary artery disease Lupus anticoagulant disorder BPH (benign prostatic hyperplasia) Ulcerative colitis Peripheral vascular disease Anxiety COPD (chronic obstructive pulmonary disease) with emphysema Closed fracture of right inferior pubic ramus Acute UTI COPD (chronic obstructive pulmonary disease) UTI (urinary tract infection) Depression Diabetes Kidney stones Chronic pain Pancreatitis On home oxygen therapy Irregular heart beat Atrial fibrillation Stroke/cerebrovascular accident Smoker Falls frequently Seizures Sleep apnea COPD (chronic obstructive pulmonary disease) Asthma High cholesterol Tobacco abuse Home Medications ?Medication ?Instructions ?Recorded ?Last Taken ?Type tamsulosin 0.4 mg capsule 0.4 mg PO QHS bph 01/26/14 1 History finasteride 5 mg tablet 5 mg PO DAILY prostate 11/1403/28/23 History atorvastatin 40 mg tablet 40 mg PO QHS Cholesterol 12/0203/28/23 History mirtazapine 15 mg tablet 15 mg PO QHS anti depressant 08/16/19 03/28/23 History clopidogrel 75 mg tablet 75 mg PO DAILY blood thinner 10/25/19 03/28/23 History losartan 100 mg tablet 100 mg PO DAILY Blood pressu re 08/19/21 03/28/23 History pantoprazole 40 mg tablet,delayed 40 mg PO DAILY GERD 08/19/21 03/28/23 History release nifedipine 90 mg tablet,extended 90 mg PO DAILY blood pressure 11/25/21 03/28/23 History release alendronate 70 mg tablet 70 mg PO QWEEK #1 TAB 03/28/23 Rx metoprolol tartrate 25 mg tablet 25 mg PO DAILY Blood pressure 03/30/23 03/28/23 History sennosides 8.6 mg-docusate sodium 2 tab PO BID PRN PRN Constipation 04/04/23 Unknown Rx 50 mg tablet (Stool #0 tabs Softener-Stimulant Laxative) acetaminophen 500 mg tablet 1,000 mg (2 x 500 mg) PO Q 8 30 07/26/23 Unknown Rx days #0 tabs albuterol sulfate 90 mcg/actuation 1 puff inhalation Q 8H 08/22/23 Unknown History aerosol inhaler carbamazepine 200 mg 200 mg PO Q12H 08/22/23 Unkn own History tablet,extended release,12 hr cholecalciferol (vitamin D3) 50 50 mcg PO DAILY Unknown History mcg (2,000 unit) tablet clonidine HCl 0.1 mg tablet 0.1 mg PO BID 08/22/23 Unk nown History guaifenesin 100 mg/5 mL oral liquid 200 mg PO Q4H PRN congestion 08/22/23 Unknown History sertraline 100 mg tablet 100 mg PO DAILY 08/22/23 Unk nown History ergocalciferol (vitamin D2) 1,250 1,250 mcg PO Q7D #0 caps 04/10/24 Unknown Rx mcg (50,000 unit) capsule (Vitamin D2) Allergy/AdvReac Type Severity Reaction Status Date / Time No Known Allergies Allergy Verified 04/06/24 11:12 Family History Other Heart disease Surgical History S/P arterial stent History of appendectomy Social History (Updated 08/25/24 @ 18:[address] 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 Smoking Status: Current some day smoker tobacco type: cigarettes alcohol intake: former details: Former alcoholic quit several years ago substance use type: does not use caffeine: Yes Type: coffee Number of servings: 3 Physical Exam Const alert and no apparent distress General Appearance: cooperative HEENT normocephalic and head/scalp atraumatic Eyes PERRL and EOMs intact bilaterally Neck supple and No nodes Resp normal air movement and clear to auscultation bilaterally Cardio regular rate and regular rhythm GI soft to palpation, non-tender and non-distended Extremity General Extremity: Negative for edema Skin no rashes or lesions noted Neuro CN's II-XII intact bilaterally Lab / Micro Data Attestation: I reviewed the patient's lab results. 08/30/24 05:48 08/30/24 05:48 Labs: Laboratory Results - last 24 hr 08/30/24 05:48: WBC 5.6, RBC 4.33 L, Hgb 13.8, Hct 41.8, MCV 96.5 H, MCH 31.9, MCHC 33.0, RDW Std Deviation 47.7 H, RDW Coeff of Aly 13.3, Plt Count 309, MPV 9.7, Immature Gran % (Auto) 0.400, Neut %(Auto) 64.8, Lymph % (Auto) 17.8 L, Phelps % (Auto) 7.6, Eos % (Auto) 7.8 H, Baso % (Auto) 1.6 H, Absolute Neuts (auto) 3.7, Absolute Lymphs (auto) 1.00, Nucleated RBC % 0, Sodium 138, Potassium 4.2, Chloride 102, Carbon Dioxide 22.7, Anion Gap 13, BUN 26 H, Creatinine 1.21 H, Estim Creat Clear Calc 51.03, Est GFR (MDRD) Non-Af 62, BUN/Creatinine Ratio 21.4 H, Glucose 94, Calcium 10.1 Micro: Microbiology 08/27/24 12:25 Urine, Clean Catch Urine Culture - Preliminary ESBL Escherichia coli 08/30/24 1346 Cosigner Signature (if applicable): CC: Dr. Daija Morton MD~ Signed [facility]03-14-2025 Progress note Author Celia Toribio [facility] Note Date/Time August 30, 2024 11: 11am [facility] Medical Records Department [address] [place] [address] Progress Note - Hospitalist 08/30/24 0709 MR#: [id number] Acct: [id number] Name: PEDRO PABLO SIERRA Rep #:[id number] : 1950 74 From: Celia Toribio MD PCP: Dr. Daija Morton MD Status:ADM I N Location: [address] Reason for Visit Reason for Visit: Diagnoses Diarrhea, unspecified (08/27/24) Weakness (08/27/24) Other malaise (08/27/24) Adult failure to thrive (08/27/24) Subjective Subjective Patient reports today he has increased cough and he is wheezing more, reports his stomach feels empty Objective Data Objective Data Vital Signs: Vital Signs Temp Pulse Resp BP Pulse Ox O2 Del Method O2 Flow Rate 98.6 F 65 18 147/75 H 92 Room Air 2 08/30/24 04:00 08/30/24 04:00 08/30/24 04:00 08/30/24 04:00 08/30/24 04:00 08/30/24 04:00 08/29/24 13:15 Oxygen Flow Rate (L/min) 2 Oxygen Delivery Method Room Air Weight: 70.1 kg Body Mass Index (BMI) 23.4 Intake & Output: Intake and Output for Last 24 Hours 08/28/24 08/29/24 08/30/24 23:59 23:59 23:59 Intake Total 325 / 325 966.67 / 966.67 50 Output Total 950 / 950 1225 / 1225 Balance -625 / -625 -258.33 / -258.33 Lab / Micro Data 08/30/24 05:48 08/30/24 05:48 Labs: Laboratory Results - last 24 hr 08/29/24 06:04: Sodium 141, Potassium 4.1, Chloride 104, Carbon Dioxide 22.8, Anion Gap 14, BUN 30 H, Creatinine 1.21 H, Estim Creat Clear Calc 51.03, Est GFR(MDRD) Non-Af 62, BUN/Creatinine Ratio 24.6 H, Glucose 91, Calcium 10.0 08/30/24 05:48: WBC 5.6, RBC 4.33 L, Hgb 13.8, Hct 41.8, MCV 96.5 H, MCH 31.9, MCHC 33.0, RDW Std Deviation 47.7 H, RDW Coeff of Aly 13.3, Plt Count 309, MPV 9.7, Immature Gran % (Auto) 0.400, Neut % (Auto) 64.8, Lymph % (Auto) 17.8 L, Phelps % (Auto) 7.6, Eos % (Auto) 7.8 H, Baso % (Auto) 1.6 H, Absolute Neuts (auto) 3.7, Absolute Lymphs (auto) 1.00, Nucleated RBC % 0 Micro: Microbiology 08/27/24 12:25 Urine, Clean Catch Urine Culture - Preliminary ESBL Escherichia coli 08/26/24 10:09 Mucosa - Nasopharyngeal Respiratory Panel (PCR) - Final 08/26/24 10:20 Nasal Secretion SARS-CoV-2 Antigen (Rapid) - Final Physical Exam Narrative General: Alert, no apparent distress HEENT: Atraumatic Eyes: Anicteric, Neck: Supple Respiratory: Fairly normal respiratory effort but is diffusely wheezing Cardiovascular: Regular rate GI: Soft, nondistended, nontender to palpation, no rebound, guarding, rigidity Extremities: No edema Musculoskeletal: Moving all extremities Neuro: No overt focal neurological deficits Skin: No rashes appreciated Psych: Overall cooperative Assessment & Plan Assessment/Plan (1) Weakness: (2) Acute diarrhea: PLAN: Plan # Generalized weakness/debility/failure to thrive -Patient recently had been at [facility] and was discharged 08/20/2024 buthas been having diarrhea since that time -May be due to diarrhea but cannot say definitively, checking UA -PT/OT -08/27: UA ordered, yet to be collected, will follow-up, continue to work with physical therapy, case management social work following -08/28: Patient now agreeable to placement, placement avenues been pursued -08/29: Patient pending acceptance and pre-CERT for [facility], patient stable and willbe cleared for discharge once antibiotic and DC plan in place -08/30: Awaiting [facility] and [facility]PS determinations about payee so that patient can be placed at [facility], further dispo pending this # Urinary tract infection?ESBL E. coli UTI -08/28: UA suggestive of UTI and urine culture positive for gram-negative rods, awaiting culture and sensitivity data, this may have contributed to some of patient's symptoms, patient will still benefit from placement -08/29: Patient growing ESBL E. coli, infectious disease consulted -08/30: Continue patient on Zosyn, ID consult pending # Hypoxia, patient supposed to be on 3 L as needed at home-now mild COPD exacerbation -Patient 88% on room air now requiring 2 L of O2 -Chest x-ray with no acute abnormality -COVID and influenza negative, no tachycardia, tachypnea, shortness of breath orother indication that patient may have PE, it is possible there is component of atelectasis, incentive spirometer -Patient on nebs -No wheezing or other indication for IV steroids or that patient is having COPD exacerbation -08/27: Patient on nebs, per documentation he is supposed to be on 3 L as needed for his COPD, do not think there is an acute superimposed process at this time. He reports his breathing is at baseline, may just need to assess for updated O2 requirements on discharge -08/28: On every evaluation patient has his oxygen off and reports his breathing is at baseline -08/29: This a.m. patient 92% on room air -08/29: Patient presently on room air, continue nebs -08/30: Patient with some increased cough and is having wheezing, seems mild COPDexacerbation, nebs, brief oral steroid course for 5 days and oral azithromycin x3 days. Encourage incentive spirometer and mobilization. Will swab for COVID and respiratory panel Chronic medical problems: # Patient with noted history of COPD -Continue nebs #HX CAD/PAD/CVA -Continue home beta-joel and Plavix and statin # History of seizure disorder -Patient on Tegretol #Hypertension -Continue clonidine, metoprolol, nifedipine, losartan #Chronic BPH with obstruction -Continue home medications #Tobacco use -Advise cessation -Nicotine replacement available if desired #Depression/anxiety -Continue home medications #GERD -Continue PPI # Diarrhea?resolved -Unclear etiology -Stool studies ordered -Respiratory panel ordered and is negative -08/27: Has not had any significant diarrhea, had 1 formed bowel movement earliertoday, diarrhea resolved # Anemia -08/27: Hemoglobin 12.8, was 14.2 on presentation, no noted ongoing blood loss but will check FOBT. Will also repeat in this afternoon to verify no further drop. Will continue Plavix for now given no vital instability or overt bleedinglow threshold to hold if needed. Will change Lovenox to SCDs -08/28: Hemoglobin overall stable, no further workup at this time -08/29: Hemoglobin still stable, will not need to presently pursue any further workup #DVT ppx: SCDs Celia Toribio MD Time spent in the patient's overall evaluation,decision-making process, review of diagnostic data, adjustment of management, discussion with other providers, nursing nursing and ancillary staff involved in patient's care documentation, 36minutes Charges/Coding Visit Charges Inpatient E&M: 70826 Subs Hosp L2 08/30/24 1111 <Electronically signed by Celia Toribio MD> Cosigner Signature (if applicable): CC: ~ Signed [facility] Work Phone: [phone] Progress note [facility] Medical Records Department [address] [place] [address] Progress Note - Hospitalist 08/30/24708 MR#: [id number] Acct: [id number] Name: PEDRO PABLO SIERRA Rep #:[id number] : 1950 74 From: Celia Toribio MD PCP: Dr. Daija Morton MD Status:ADM I N Location: [place] [address] Reason for Visit Reason for Visit: Diagnoses Diarrhea, unspecified (08/27/24) Weakness (08/27/24) Other malaise (08/27/24) Adult failure to thrive (08/27/24) Subjective Subjective Patient reports today he has increased cough and he is wheezing more, reports his stomach feels empty Objective Data Objective Data Vital Signs: Vital Signs Temp Pulse Resp BP Pulse Ox O2 Del Method O2 Flow Rate 98.6 F 65 18 147/75 H 92 Room Air 2 08/30/24 04:00 08/30/24 04:00 08/30/24 04:00 08/30/24 04:00 08/30/24 04:00 08/30/24 04:00 08/29/24 13:15 Oxygen Flow Rate (L/min) 2 Oxygen Delivery Method Room Air Weight: 70.1 kg Body Mass Index (BMI) 23.4 Intake & Output: Intake and Output for Last 24 Hours 08/28/24 08/29/24 08/30/24 23:59 23:59 23:59 Intake Total 325 / 325 966.67 / 966.67 50 / 50 Output Total 950 / 950 1225 / 1225 Balance -625 / -625 -258.33 / -258.33 50 / 50 Lab / Micro Data 08/30/24 05:48 08/30/24 05:48 Labs: Laboratory Results - last 24 hr 08/29/24 06:04: Sodium 141, Potassium 4.1, Chloride 104, Carbon Dioxide 22.8, Anion Gap 14, BUN 30 H, Creatinine 1.21 H, Estim Creat Clear Calc 51.03, Est GFR(MDRD) Non-Af 62, BUN/Creatinine Ratio 24.6 H, Glucose 91, Calcium 10.0 08/30/24 05:48: WBC 5.6, RBC 4.33 L, Hgb 13.8, Hct 41.8, MCV 96.5 H, MCH 31.9, MCHC 33.0, RDW Std Deviation 47.7 H, RDW Coeff of Aly 13.3, Plt Count 309, MPV 9.7, Immature Gran % (Auto) 0.400, Neut %(Auto) 64.8, Lymph % (Auto) 17.8 L, Phelps % (Auto) 7.6, Eos % (Auto) 7.8 H, Baso % (Auto) 1.6 H, Absolute Neuts (auto) 3.7, Absolute Lymphs (auto) 1.00, Nucleated RBC % 0 Micro: Microbiology 08/27/24 12:25 Urine, Clean Catch Urine Culture - Preliminary ESBL Escherichia coli 08/26/24 10:09 Mucosa - Nasopharyngeal Respiratory Panel (PCR) - Final 08/26/24 10:20 Nasal Secretion SARS-CoV-2 Antigen (Rapid) - Final Physical Exam Narrative General: Alert, no apparent distress HEENT: Atraumatic Eyes: Anicteric, Neck: Supple Respiratory: Fairly normal respiratory effort but is diffusely wheezing Cardiovascular: Regular rate GI: Soft, nondistended, nontender to palpation, no rebound, guarding, rigidity Extremities: No edema Musculoskeletal: Moving all extremities Neuro: No overt focal neurological deficits Skin: No rashes appreciated Psych: Overall cooperative Assessment & Plan Assessment/Plan (1) Weakness: (2) Acute diarrhea: PLAN: Plan # Generalized weakness/debility/failure to thrive -Patient recently had been at [facility] and was discharged 08/20/2024 buthas been having diarrhea since that time -May be due to diarrhea but cannot say definitively, checking UA -PT/OT -08/27: UA ordered, yet to be collected, will follow-up, continue to work with physical therapy, case management social work following -08/28: Patient now agreeable to placement, placement avenues been pursued -08/29: Patient pending acceptance and pre-CERT for [facility], patient stable and willbe cleared for discharge once antibiotic and DC plan in place -08/30: Awaiting [facility] and [facility]PS determinations about payee so that patient can be placedat [facility], further dispo pending this # Urinary tract infection?ESBL E. coli UTI -08/28: UA suggestive of UTI and urine culture positive for gram-negative rods, awaiting culture andsensitivity data, this may have contributed to some of patient's symptoms, patient will still benefit from placement -08/29: Patient growing ESBL E. coli, infectious disease consulted -08/30: Continue patient on Zosyn, ID consult pending # Hypoxia, patient supposed to be on 3 L as needed at home-now mild COPD exacerbation -Patient 88% on room air now requiring 2 L of O2 -Chest x-ray with no acute abnormality -COVID and influenza negative, no tachycardia, tachypnea, shortness of breath orother indication that patient may have PE, it is possible there is component of atelectasis, incentive spirometer -Patient on nebs -No wheezing or other indication for IV steroids or that patient is having COPD exacerbation -08/27: Patient on nebs, per documentation he is supposed to be on 3 L as needed for his COPD, do not think there is an acute superimposed process at this time. He reports his breathing is at baseline, may just need to assess for updated O2 requirements on discharge -08/28: On every evaluation patient has his oxygen off and reports his breathing is at baseline -08/29: This a.m. patient 92% on room air -08/29: Patient presently on room air, continue nebs -08/30: Patient with some increased cough and is having wheezing, seems mild COPDexacerbation, nebs,brief oral steroid course for 5 days and oral azithromycin x3 days. Encourage incentive spirometer and mobilization. Will swab for COVID and respiratory panel Chronic medical problems: # Patient with noted history of COPD -Continue nebs #HX CAD/PAD/CVA -Continue home beta-joel and Plavix and statin # History of seizure disorder -Patient on Tegretol #Hypertension -Continue clonidine, metoprolol, nifedipine, losartan #Chronic BPH with obstruction -Continue home medications #Tobacco use -Advise cessation -Nicotine replacement available if desired #Depression/anxiety -Continue home medications #GERD -Continue PPI # Diarrhea?resolved -Unclear etiology -Stool studies ordered -Respiratory panel ordered and is negative -08/27: Has not had any significant diarrhea, had 1 formed bowel movement earliertoday, diarrhea resolved # Anemia -08/27: Hemoglobin 12.8, was 14.2 on presentation, no noted ongoing blood loss but will check FOBT. Will also repeat in this afternoon to verify no further drop. Will continue Plavix for now given no vital instability or overt bleedinglow threshold to hold if needed. Will change Lovenox to SCDs -08/28: Hemoglobin overall stable, no further workup at this time -08/29: Hemoglobin still stable, will not need to presently pursue any further workup #DVT ppx: [facility] Celia Toribio MD Time spent in the patient's overall evaluation,decision-making process, review of diagnostic data, adjustment of management, discussion with other providers, nursing nursing and ancillary staff involved in patient's care documentation, 36minutes Charges/Coding Visit Charges Inpatient E&M: 63437 Subs Hosp L2 08/30/24 1111 Cosigner Signature (if applicable): CC: ~ Signed [facility]03-13-2025 Progress note Author Celia Toribio [facility] Note Date/Time August 29, 2024 5:2 5pm [facility] Medical Records Department [address] [place] [address] Progress Note - Hospitalist 08/29/24 0805 MR#: [id number] Acct: [id number] Name: PEDRO PABLO SIERRA Rep #:[id number] : 1950 74 From: Celia Toribio MD PCP: Dr. Daija Morton MD Status:ADM I N Location: [facility] [id number] Reason for Visit Reason for Visit: Diagnoses Diarrhea, unspecified (08/27/24) Weakness (08/27/24) Other malaise (08/27/24) Adult failure to thrive (08/27/24) Subjective Subjective Patient resting in bed, reports he feels a little bit unwell overall still with a little bit of stomach upset but still feeling better than he did on arrival Objective Data Objective Data Vital Signs: Vital Signs Temp Pulse Resp BP Pulse Ox O2 Del Method O2 Flow Rate 97.9 F 61 18 145/46 H 92 Room Air 2 08/29/24 04:08/29/24 04:08/29/24 04:08/29/24 04:08/29/24 04:08/29/24 04:08/28/24 21:01 Oxygen Flow Rate (L/min) 2 Oxygen Delivery Method Room Air Weight: 69 kg Body Mass Index (BMI) 23.0 Intake & Output: Intake and Output for Last 24 Hours 08/27/24 08/28/24 08/29/24 23:59 23:59 23:59 Intake Total 150 / 150 325 / 325 450 / 450 Output Total 800 / 800 950 / 950 725 / 725 Balance -650 / -650 -625 / -625 -275 / -275 Lab / Micro Data 08/29/24 06:04 08/29/24 06:04 Labs: Laboratory Results - last 24 hr 08/28/24 06:30: Sodium 140, Potassium 3.8, Chloride 105, Carbon Dioxide 21.9, Anion Gap 13, BUN 25 H, Creatinine 1.14, Estim Creat Clear Calc 54.17, Est GFR (MDRD) Non-Af 67, BUN/Creatinine Ratio 21.6 H, Glucose 93, Calcium 9.8 08/29/24 06:04: WBC 5.3, RBC 4.08 L, Hgb 12.8 L, Hct 39.2 L, MCV 96.1 H, MCH 31.4, MCHC 32.7, RDW Std Deviation 47.8 H, RDW Coeff of Aly 13.5, Plt Count 277,MPV 9.8, Immature Gran % (Auto) 0.400, Neut % (Auto) 59.8, Lymph % (Auto) 22.3, Phelps % (Auto) 8.0, Eos % (Auto) 8.2 H, Baso % (Auto) 1.3 H, Absolute Neuts (auto) 3.1, Absolute Lymphs (auto) 1.17, Nucleated RBC % 0 Micro: Microbiology 08/27/24 12:25 Urine, Clean Catch Urine Culture - Preliminary Presumptive E. coli Gram negative holly 08/26/24 10:09 Mucosa - Nasopharyngeal Respiratory Panel (PCR) - Final 08/26/24 10:20 Nasal Secretion SARS-CoV-2 Antigen (Rapid) - Final Physical Exam Narrative General: Alert, no apparent distress HEENT: Atraumatic Eyes: Anicteric, Neck: Supple Respiratory: Clear to auscultation bilaterally, normal respiratory effort Cardiovascular: Regular rate GI: Soft, nondistended, nontender to palpation, no rebound, guarding, rigidity Extremities: No edema Musculoskeletal: Moving all extremities Neuro: No overt focal neurological deficits Skin: No rashes appreciated Psych: Overall cooperative Assessment & Plan Assessment/Plan (1) Weakness: (2) Acute diarrhea: PLAN: Plan # Generalized weakness/debility/failure to thrive -Patient recently had been at [facility] and was discharged 08/20/2024 buthas been having diarrhea since that time -May be due to diarrhea but cannot say definitively, checking UA -PT/OT -08/27: UA ordered, yet to be collected, will follow-up, continue to work with physical therapy, case management social work following -08/28: Patient now agreeable to placement, placement avenues been pursued -08/29: Patient pending acceptance and pre-CERT for [facility], patient stable and will be cleared for discharge once antibiotic and DC plan in place # Urinary tract infection -08/28: UA suggestive of UTI and urine culture positive for gram-negative rods, awaiting culture and sensitivity data, this may have contributed to some of patient's symptoms, patient will still benefit from placement -08/29: Patient growing ESBL E. coli, infectious disease consulted # Hypoxia, patient supposed to be on 3 L as needed at home -Patient 88% on room air now requiring 2 L of O2 -Chest x-ray with no acute abnormality -COVID and influenza negative, no tachycardia, tachypnea, shortness of breath orother indication that patient may have PE, it is possible there is component of atelectasis, incentive spirometer -Patient on nebs -No wheezing or other indication for IV steroids or that patient is having COPD exacerbation -08/27: Patient on nebs, per documentation he is supposed to be on 3 L as needed for his COPD, do not think there is an acute superimposed process at this time. He reports his breathing is at baseline, may just need to assess for updated O2 requirements on discharge -08/28: On every evaluation patient has his oxygen off and reports his breathing is at baseline -08/29: This a.m. patient 92% on room air -08/29: Patient presently on room air, continue nebs # Anemia -08/27: Hemoglobin 12.8, was 14.2 on presentation, no noted ongoing blood loss but will check FOBT. Will also repeat in this afternoon to verify no further drop. Will continue Plavix for now given no vital instability or overt bleedinglow threshold to hold if needed. Will change Lovenox to SCDs -08/28: Hemoglobin overall stable, no further workup at this time -08/29: Hemoglobin still stable, will not need to presently pursue any further workup Chronic medical problems: # Patient with noted history of COPD -Continue nebs #HX CAD/PAD/CVA -Continue home beta-joel and Plavix and statin # History of seizure disorder -Patient on Tegretol #Hypertension -Continue clonidine, metoprolol, nifedipine, losartan #Chronic BPH with obstruction -Continue home medications #Tobacco use -Advise cessation -Nicotine replacement available if desired #Depression/anxiety -Continue home medications #GERD -Continue PPI # Diarrhea?resolved -Unclear etiology -Stool studies ordered -Respiratory panel ordered and is negative -08/27: Has not had any significant diarrhea, had 1 formed bowel movement earliertoday, diarrhea resolved #DVT ppx: SCDs Celia Toribio MD Time spent in the patient's overall evaluation,decision-making process, review of diagnostic data, adjustment of management, discussion with other providers, nursing nursing and ancillary staff involved in patient's care documentation, 35minutes Charges/Coding Visit Charges Inpatient E&M: 46983 Subs Hosp L2 08/29/24 8055 <Electronically signed by Celia Toribio MD> Cosigner Signature (if applicable): CC: ~ Signed [facility] Work Phone: 1(366) 460-141403-13-2025 Progress note [facility] Medical Records Department [address] [place] [address] Progress Note - Hospitalist 08/29/24804 MR#: [id number] Acct: [id number] Name: PEDRO PABLO SIERRA Rep #:[id number] : 1950 74 From: Celia Toribio MD PCP: Dr. Daija Morton MD Status:ADM I N Location: [facility] [id number] Reason for Visit Reason for Visit: Diagnoses Diarrhea, unspecified (08/27/24) Weakness (08/27/24) Other malaise (08/27/24) Adult failure to thrive (08/27/24) Subjective Subjective Patient resting in bed, reports he feels a little bit unwell overall still with a little bit of stomach upset but still feeling better than he did on arrival Objective Data Objective Data Vital Signs: Vital Signs Temp Pulse Resp BP Pulse Ox O2 Del Method O2 Flow Rate 97.9 F 61 18 145/46 H 92 Room Air 2 08/29/24 04:25 08/29/24 04:25 08/29/24 04:25 08/29/24 04:25 08/29/24 04:25 08/29/24 04:25 08/28/24 21:01 Oxygen Flow Rate (L/min) 2 Oxygen Delivery Method Room Air Weight: 69 kg Body Mass Index (BMI) 23.0 Intake & Output: Intake and Output for Last 24 Hours 08/27/24 08/28/24 08/29/24 23:59 23:59 23:59 Intake Total 150 / 150 325 / 325 450 / 450 Output Total 800 / 800 950 / 950 725 / 725 Balance -650 / -650 -625 / -625 -275 / -275 Lab / Micro Data 08/29/24 06:04 08/29/24 06:04 Labs: Laboratory Results - last 24 hr 08/28/24 06:30: Sodium 140, Potassium 3.8, Chloride 105, Carbon Dioxide 21.9, Anion Gap 13, BUN 25 H, Creatinine 1.14, Estim Creat Clear Calc 54.17, Est GFR (MDRD) Non-Af 67, BUN/Creatinine Ratio 21.6 H, Glucose 93, Calcium 9.8 08/29/24 06:04: WBC 5.3, RBC 4.08 L, Hgb 12.8 L, Hct 39.2 L, MCV 96.1 H, MCH 31.4, MCHC 32.7, RDW Std Deviation 47.8 H, RDW Coeff of Aly 13.5, Plt Count 277,MPV 9.8, Immature Gran % (Auto) 0.400, Neut % (Auto) 59.8, Lymph % (Auto) 22.3, Phelps % (Auto) 8.0, Eos % (Auto) 8.2 H, Baso % (Auto) 1.3 H, Absolute Neuts (auto) 3.1, Absolute Lymphs (auto) 1.17, Nucleated RBC % 0 Micro: Microbiology 08/27/24 12:25 Urine, Clean Catch Urine Culture - Preliminary Presumptive E. coli Gram negative holly 08/26/24 10:09 Mucosa - Nasopharyngeal Respiratory Panel (PCR) - Final 08/26/24 10:20 Nasal Secretion SARS-CoV-2 Antigen (Rapid) - Final Physical Exam Narrative General: Alert, no apparent distress HEENT: Atraumatic Eyes: Anicteric, Neck: Supple Respiratory: Clear to auscultation bilaterally, normal respiratory effort Cardiovascular: Regular rate GI: Soft, nondistended, nontender to palpation, no rebound, guarding, rigidity Extremities: No edema Musculoskeletal: Moving all extremities Neuro: No overt focal neurological deficits Skin: No rashes appreciated Psych: Overall cooperative Assessment & Plan Assessment/Plan (1) Weakness: (2) Acute diarrhea: PLAN: Plan # Generalized weakness/debility/failure to thrive -Patient recently had been at [facility] and was discharged 08/20/2024 buthas been having diarrhea since that time -May be due to diarrhea but cannot say definitively, checking UA -PT/OT -08/27: UA ordered, yet to be collected, will follow-up, continue to work with physical therapy, case management social work following -08/28: Patient now agreeable to placement, placement avenues been pursued -08/29: Patient pending acceptance and pre-[facility] for [facility], patient stable and will be cleared for discharge once antibiotic and DC plan in place # Urinary tract infection -08/28: UA suggestive of UTI and urine culture positive for gram-negative rods, awaiting culture andsensitivity data, this may have contributed to some of patient's symptoms, patient will still benefit from placement -08/29: Patient growing ESBL E. coli, infectious disease consulted # Hypoxia, patient supposed to be on 3 L as needed at home -Patient 88% on room air now requiring 2 L of O2 -Chest x-ray with no acute abnormality -COVID and influenza negative, no tachycardia, tachypnea, shortness of breath orother indication that patient may have PE, it is possible there is component of atelectasis, incentive spirometer -Patient on nebs -No wheezing or other indication for IV steroids or that patient is having COPD exacerbation -08/27: Patient on nebs, per documentation he is supposed to be on 3 L as needed for his COPD, do not think there is an acute superimposed process at this time. He reports his breathing is at baseline, may just need to assess for updated O2 requirements on discharge -08/28: On every evaluation patient has his oxygen off and reports his breathing is at baseline -08/29: This a.m. patient 92% on room air -08/29: Patient presently on room air, continue nebs # Anemia -08/27: Hemoglobin 12.8, was 14.2 on presentation, no noted ongoing blood loss but will check FOBT. Will also repeat in this afternoon to verify no further drop. Will continue Plavix for now given no vital instability or overt bleedinglow threshold to hold if needed. Will change Lovenox to SCDs -08/28: Hemoglobin overall stable, no further workup at this time -08/29: Hemoglobin still stable, will not need to presently pursue any further workup Chronic medical problems: # Patient with noted history of COPD -Continue nebs #HX CAD/PAD/CVA -Continue home beta-joel and Plavix and statin # History of seizure disorder -Patient on Tegretol #Hypertension -Continue clonidine, metoprolol, nifedipine, losartan #Chronic BPH with obstruction -Continue home medications #Tobacco use -Advise cessation -Nicotine replacement available if desired #Depression/anxiety -Continue home medications #GERD -Continue PPI # Diarrhea?resolved -Unclear etiology -Stool studies ordered -Respiratory panel ordered and is negative -08/27: Has not had any significant diarrhea, had 1 formed bowel movement earliertoday, diarrhea resolved #DVT ppx: [facility] Celia Toribio MD Time spent in the patient's overall evaluation,decision-making process, review of diagnostic data, adjustment of management, discussion with other providers, nursing nursing and ancillary staff involved in patient's care documentation, 35minutes Charges/Coding Visit Charges Inpatient E&M: 51132 Subs Hosp L2 08/29/24 1725 Cosigner Signature (if applicable): CC: ~ Signed [facility]03-12-2025 Progress note Author Celia Toribio [facility] Note Date/Time August 28, 2024 3:0 4pm [facility] Medical Records Department [address] [place] [address] Progress Note - Hospitalist 08/28/24 1458 MR#: [id number] Acct: [id number] Name: PEDRO PABLO SIERRA Rep #:[id number] : 1950 74 From: Celia Toribio MD PCP: Dr. Daija Morton MD Status:ADM I N Location: [place] [address] Reason for Visit Reason for Visit: Diagnoses Diarrhea, unspecified (08/27/24) Weakness (08/27/24) Other malaise (08/27/24) Adult failure to thrive (08/27/24) Subjective Subjective Still reports a little bit of stomach upset. Denies any vomiting, not having any further diarrhea, no changes in his breathing Objective Data Objective Data Vital Signs: Vital Signs Temp Pulse Resp BP Pulse Ox O2 Del Method O2 Flow Rate 97.7 F L 60 18 138/61 H 96 Nasal Cannula 2 08/28/24 13:58 08/28/24 13:58 08/28/24 13:58 08/28/24 13:58 08/28/24 13:58 08/28/24 14:00 08/28/24 14:00 Oxygen Flow Rate (L/min) 2 Oxygen Delivery Method Nasal Cannula Weight: 71.6 kg Body Mass Index (BMI) 23.9 Intake & Output: Intake and Output for Last 24 Hours 08/26/24 08/27/24 08/28/24 23:59 23:59 23:59 Intake Total 300 / 300 150 / 150 50 / 50 Output Total 300 / 800 800 / 800 300 / 300 Balance 0 / -500 -650 / -650 -250 / -250 Lab / Micro Data 08/28/24 06:30 08/28/24 06:30 Labs: Laboratory Results - last 24 hr 08/28/24 06:30: WBC 4.5, RBC 4.12 L, Hgb 12.8 L, Hct 39.0 L, MCV 94.7 H, MCH 31.1, MCHC 32.8, RDW Std Deviation 46.1 H, RDW Coeff of Aly 13.3, Plt Count 279,MPV 9.8, Immature Gran % (Auto) 0.400, Neut % (Auto) 55.6, Lymph % (Auto) 23.4, Phelps % (Auto) 11.3 H, Eos % (Auto) 7.5 H, Baso % (Auto) 1.8 H, Absolute Neuts (auto) 2.5, Absolute Lymphs (auto) 1.06, Nucleated RBC % 0, Sodium 140, Potassium 3.8, Chloride 105, Carbon Dioxide 21.9, Anion Gap 13, BUN 25 H, Creatinine 1.14, Estim Creat Clear Calc 54.17, Est GFR (MDRD) Non-Af 67, BUN/Creatinine Ratio 21.6 H, Glucose 93, Calcium 9.8 Micro: Microbiology 08/27/24 12:25 Urine, Clean Catch Urine Culture - Preliminary Presumptive E. coli Gram negative holly 08/26/24 10:09 Mucosa - Nasopharyngeal Respiratory Panel (PCR) - Final 08/26/24 10:20 Nasal Secretion SARS-CoV-2 Antigen (Rapid) - Final Physical Exam Narrative General: Alert, no apparent distress HEENT: Atraumatic Eyes: Anicteric, Neck: Supple Respiratory: Clear to auscultation bilaterally, normal respiratory effort Cardiovascular: Regular rate GI: Soft, nondistended, does not seem to be tender to palpation no rebound, guarding, rigidity Extremities: No edema Musculoskeletal: Moving all extremities Neuro: No overt focal neurological deficits Skin: No rashes appreciated Psych: Overall cooperative Assessment & Plan Assessment/Plan (1) Weakness: (2) Acute diarrhea: PLAN: Plan # Generalized weakness/debility/failure to thrive -Patient recently had been at [facility] and was discharged 08/20/2024 buthas been having diarrhea since that time -May be due to diarrhea but cannot say definitively, checking UA -PT/OT -08/27: UA ordered, yet to be collected, will follow-up, continue to work with physical therapy, case management social work following -08/28: Patient now agreeable to placement, placement avenues been pursued # Urinary tract infection -08/28: UA suggestive of UTI and urine culture positive for gram-negative rods, awaiting culture and sensitivity data, this may have contributed to some of patient's symptoms, patient will still benefit from placement # Diarrhea?resolved -Unclear etiology -Stool studies ordered -Respiratory panel ordered and is negative -08/27: Has not had any significant diarrhea, had 1 formed bowel movement earliertoday, diarrhea resolved # Hypoxia, patient supposed to be on 3 L as needed at home -Patient 88% on room air now requiring 2 L of O2 -Chest x-ray with no acute abnormality -COVID and influenza negative, no tachycardia, tachypnea, shortness of breath orother indication that patient may have PE, it is possible there is component of atelectasis, incentive spirometer -Patient on nebs -No wheezing or other indication for IV steroids or that patient is having COPD exacerbation -08/27: Patient on nebs, per documentation he is supposed to be on 3 L as needed for his COPD, do not think there is an acute superimposed process at this time. He reports his breathing is at baseline, may just need to assess for updated O2 requirements on discharge -08/28: On every evaluation patient has his oxygen off and reports his breathing is at baseline # Anemia -08/27: Hemoglobin 12.8, was 14.2 on presentation, no noted ongoing blood loss but will check FOBT. Will also repeat in this afternoon to verify no further drop. Will continue Plavix for now given no vital instability or overt bleedinglow threshold to hold if needed. Will change Lovenox to SCDs -08/28: Hemoglobin overall stable, no further workup at this time Chronic medical problems: # Patient with noted history of COPD -Continue nebs #HX CAD/PAD/CVA -Continue home beta-joel and Plavix and statin # History of seizure disorder -Patient on Tegretol #Hypertension -Continue clonidine, metoprolol, nifedipine, losartan #Chronic BPH with obstruction -Continue home medications #Tobacco use -Advise cessation -Nicotine replacement available if desired #Depression/anxiety -Continue home medications #GERD -Continue PPI #DVT ppx: [facility] Celia Toribio MD Time spent in the patient's overall evaluation,decision-making process, review of diagnostic data, adjustment of management, discussion with other providers, nursing nursing and ancillary staff involved in patient's care documentation, 35minutes Charges/Coding Visit Charges Inpatient E&M: 10810 Subs Hosp L2 08/28/24 1504 <Electronically signed by Celia Toribio MD> Cosigner Signature (if applicable): CC: ~ Signed [facility] Work Phone: [phone]) 927-929403-12-2025 Progress note [facility] Medical Records Department [address] [place] [address] Progress Note - Hospitalist 08/28/24 6767 MR#: [id number] Acct: [id number] Name: PEDRO PABLO SIERRA Rep #:[id number] : 1950 74 From: Celia Toribio MD PCP: Dr. Daija Morton MD Status:ADM I N Location: [place] [address] Reason for Visit Reason for Visit: Diagnoses Diarrhea, unspecified (08/27/24) Weakness (08/27/24) Other malaise (08/27/24) Adult failure to thrive (08/27/24) Subjective Subjective Still reports a little bit of stomach upset. Denies any vomiting, not having any further diarrhea, no changes in his breathing Objective Data Objective Data Vital Signs: Vital Signs Temp Pulse Resp BP Pulse Ox O2 Del Method O2 Flow Rate 97.7 F L 60 18 138/61 H 96 Nasal Cannula 2 08/28/24 13:58 08/28/24 13:58 08/28/24 13:58 08/28/24 13:58 08/28/24 13:58 08/28/24 14:00 08/28/24 14:00 Oxygen Flow Rate (L/min) 2 Oxygen Delivery Method Nasal Cannula Weight: 71.6 kg Body Mass Index (BMI) 23.9 Intake & Output: Intake and Output for Last 24 Hours 08/26/24 08/27/24 08/28/24 23:59 23:59 23:59 Intake Total 300 / 300 150 / 150 50 / 50 Output Total 300 / 800 800 / 800 300 / 300 Balance 0 / -500 -650 / -650 -250 / -250 Lab / Micro Data 08/28/24 06:30 08/28/24 06:30 Labs: Laboratory Results - last 24 hr 08/28/24 06:30: WBC 4.5, RBC 4.12 L, Hgb 12.8 L, Hct 39.0 L, MCV 94.7 H, MCH 31.1, MCHC 32.8, RDW Std Deviation 46.1 H, RDW Coeff of Aly 13.3, Plt Count 279,MPV 9.8, Immature Gran % (Auto) 0.400, Neut % (Auto) 55.6, Lymph % (Auto) 23.4, Phelps % (Auto) 11.3 H, Eos % (Auto) 7.5 H, Baso % (Auto) 1.8 H,Absolute Neuts (auto) 2.5, Absolute Lymphs (auto) 1.06, Nucleated RBC % 0, Sodium 140, Potassium 3.8, Chloride 105, Carbon Dioxide 21.9, Anion Gap 13, BUN 25 H, Creatinine 1.14, Estim Creat Clear Calc 54.17, Est GFR (MDRD) Non-Af 67, BUN/Creatinine Ratio 21.6 H, Glucose 93, Calcium 9.8 Micro: Microbiology 08/27/24 12:25 Urine, Clean Catch Urine Culture - Preliminary Presumptive E. coli Gram negative holly 08/26/24 10:09 Mucosa - Nasopharyngeal Respiratory Panel (PCR) - Final 08/26/24 10:20 Nasal Secretion SARS-CoV-2 Antigen (Rapid) - Final Physical Exam Narrative General: Alert, no apparent distress HEENT: Atraumatic Eyes: Anicteric, Neck: Supple Respiratory: Clear to auscultation bilaterally, normal respiratory effort Cardiovascular: Regular rate GI: Soft, nondistended, does not seem to be tender to palpation no rebound, guarding, rigidity Extremities: No edema Musculoskeletal: Moving all extremities Neuro: No overt focal neurological deficits Skin: No rashes appreciated Psych: Overall cooperative Assessment & Plan Assessment/Plan (1) Weakness: (2) Acute diarrhea: PLAN: Plan # Generalized weakness/debility/failure to thrive -Patient recently had been at [facility] and was discharged 08/20/2024 buthas been having diarrhea since that time -May be due to diarrhea but cannot say definitively, checking UA -PT/OT -08/27: UA ordered, yet to be collected, will follow-up, continue to work with physical therapy, case management social work following -08/28: Patient now agreeable to placement, placement avenues been pursued # Urinary tract infection -08/28: UA suggestive of UTI and urine culture positive for gram-negative rods, awaiting culture andsensitivity data, this may have contributed to some of patient's symptoms, patient will still benefit from placement # Diarrhea?resolved -Unclear etiology -Stool studies ordered -Respiratory panel ordered and is negative -08/27: Has not had any significant diarrhea, had 1 formed bowel movement earliertoday, diarrhea resolved # Hypoxia, patient supposed to be on 3 L as needed at home -Patient 88% on room air now requiring 2 L of O2 -Chest x-ray with no acute abnormality -COVID and influenza negative, no tachycardia, tachypnea, shortness of breath orother indication that patient may have PE, it is possible there is component of atelectasis, incentive spirometer -Patient on nebs -No wheezing or other indication for IV steroids or that patient is having COPD exacerbation -08/27: Patient on nebs, per documentation he is supposed to be on 3 L as needed for his COPD, do not think there is an acute superimposed process at this time. He reports his breathing is at baseline, may just need to assess for updated O2 requirements on discharge -08/28: On every evaluation patient has his oxygen off and reports his breathing is at baseline # Anemia -08/27: Hemoglobin 12.8, was 14.2 on presentation, no noted ongoing blood loss but will check FOBT. Will also repeat in this afternoon to verify no further drop. Will continue Plavix for now given no vital instability or overt bleedinglow threshold to hold if needed. Will change Lovenox to SCDs -08/28: Hemoglobin overall stable, no further workup at this time Chronic medical problems: # Patient with noted history of COPD -Continue nebs #HX CAD/PAD/CVA -Continue home beta-joel and Plavix and statin # History of seizure disorder -Patient on Tegretol #Hypertension -Continue clonidine, metoprolol, nifedipine, losartan #Chronic BPH with obstruction -Continue home medications #Tobacco use -Advise cessation -Nicotine replacement available if desired #Depression/anxiety -Continue home medications #GERD -Continue PPI #[facility]px[facility] Celia Toribio MD Time spent in the patient's overall evaluation,decision-making process, review of diagnostic data, adjustment of management, discussion with other providers, nursing nursing and ancillary staff involved in patient's care documentation, 35minutes Charges/Coding Visit Charges Inpatient E&M: 86063 Subs Hosp L2 08/28/24 1504 Cosigner Signature (if applicable): CC: ~ Signed [facility]03-11-2025 Evaluation note* Diagnosis Onset Date Resolution Status Admit Date Acute diarrhea acute August 6:22pm Debility acute August 27 6:22pm Weakness acute August 27 6:22pm 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 August 172024 6:22pm [facility] Work Phone: 1(846) 924-571003-11-2025 Evaluation note* Diagnosis Onset Date Resolution Status Admit Date Acute diarrhea resolved August 6:22pm Debility inactive August 27 6:22pm Failure to thrive inactive August 172024 6:22pm Weakness inactive August 27 6:22pm [facility] Work Phone: 1([phone]) 763-102903-11-2025 Progress note Author Celia Toribio [facility] Note Date/Time August 27, 2024 4:1 3pm [facility] Medical Records Department [address] [place] [address] Progress Note - Hospitalist 08/27/24 161 MR#: [id number] Acct: [id number] Name: PEDRO PABLO SIERRA Rep #:[id number] : 1950 74 From: Celia Toribio MD PCP: Dr. Daija Morton MD Status:ADM I NO Location: [facility]3 [id number] Hospitalist Note Repeat hemoglobin actually improved, suspect that this was then margin of bladder, will DC FOBT 08/27/24 1613 <Electronically signed by Celia Toribio MD> Cosigner Signature (if applicable): CC: ~ Signed [facility] Work Phone: [phone] Progress note [facility] Medical Records Department [address] [place] [address] Progress Note - Hospitalist 08/27/24 1613 MR#: [id number] Acct: [id number] Name: PEDRO PABLO SIERRA Rep #:[id number] : 1950 74 From: Celia Toribio MD PCP: Dr. Daija Morton MD Status:ADM I NO Location: [facility] [id number] Hospitalist Note Repeat hemoglobin actually improved, suspect that this was then margin of bladder, will DC FOBT 08/27/24 1613 Cosigner Signature (if applicable): CC: ~ Signed [facility]03-11-2025 Progress note Author [facility] Note Date/Time August 27, 2024 1:3 2pm [facility] Medical Records Department [address] [place] [address] Progress Note - Hospitalist 08/27/24 1332 MR#: [id number] Acct: [id number] Name: PEDRO PABLO SIERRA R Rep #:[id number] : 1950 74 From: Celia Toribio MD PCP: Dr. Daija Morton MD Status:ADM I NO Location: [place] [address] Hospitalist Note UA abnormal and is suggestive of UTI and given this and patient suprapubic tenderness we will start patient on Rocephin and await urine culture 08/27/242 <Electronically signed by Celia Toribio MD> Cosigner Signature (if applicable): CC: ~ Signed [facility] Work Phone: 1(825) 548-360903-11-2025 Progress note Author [facility] Note Date/Time August 27, 2024 12: 52pm [facility] Medical Records Department [address] [place] [address] Progress Note - Hospitalist 08/27/24 0831 MR#: [id number] Acct: [id number] Name: PEDRO PABLO SIERRA R Rep #:[id number] : 1950 74 From: Celia Toribio MD PCP: Dr. Daija Morton MD Status:ADM I NO Location: [facility]3 [id number] Reason for Visit Reason for Visit: Diagnoses Diarrhea, unspecified (08/25/24) Weakness (08/25/24) Other malaise (08/25/24) Adult failure to thrive (08/25/24) Subjective Subjective Patient sitting in bed, reports some suprapubic tenderness, some chronic shortness of breath and chronic cough, has chronic pain in legs as well, had small bowel movement earlier, aside from the suprapubic discomfort for 1 day he denies any other acute complaints Objective Data Objective Data Vital Signs: Vital Signs Temp Pulse Resp BP Pulse Ox O2 Del Method O2 Flow Rate 97.5 F L 64 18 163/76 H 91 Nasal Cannula 2 08/27/24 08:00 08/27/24 08:15 08/27/24 08:00 08/27/24 08:00 08/27/24 08:00 08/27/24 08:00 08/27/24 08:00 Oxygen Flow Rate (L/min) 2 Oxygen Delivery Method Nasal Cannula Weight: 68.3 kg Body Mass Index (BMI) 22.8 Intake & Output: Intake and Output for Last 24 Hours 08/26/24 08/26/24 08/27/24 00:59 23:59 23:59 Intake Total 1000 / 1000 300 / 300 Output Total 400 / 400 300 / 800 800 / 800 Balance 600 / 600 0 / -500 -800 / -800 Lab / Micro Data 08/27/24 06:01 08/27/24 06:01 Labs: Laboratory Results - last 24 hr 08/26/24 06:10: Sodium 139, Potassium 3.6, Chloride 105, Carbon Dioxide 17.6 L, Anion Gap 16 H, BUN 23 H, Creatinine 1.04, Estim Creat Clear Calc 58.77, Est GFR(MDRD) Non-Af 75, BUN/Creatinine Ratio 21.8 H, Glucose 88, Calcium 9.4, Phosphorus 3.1, Magnesium 1.9, Total Bilirubin 0.25, AST 23, ALT 28, Alkaline Phosphatase 67, Total Protein 6.9, Albumin 4.0, Globulin 2.9, Albumin/Globulin Ratio 1.4 08/26/24 09:19: Lactic Acid 1.1 08/27/24 06:01: WBC 4.1 L, RBC 4.07 L, Hgb 12.8 L, Hct 38.4 L, MCV 94.3 H, MCH 31.4, MCHC 33.3, RDW Std Deviation 46.1 H, RDW Coeff of Aly 13.3, Plt Count 253,MPV 10.0, Immature Gran % (Auto) 0.200, Neut % (Auto) 56.2, Lymph % (Auto) 23.0,Phelps % (Auto) 13.1 H, Eos % (Auto) 6.3 H, Baso % (Auto) 1.2 H, Absolute Neuts (auto) 2.3, Absolute Lymphs (auto) 0.95, Nucleated RBC % 0, Sodium 139, Potassium 3.4, Chloride 104, Carbon Dioxide 19.9 L, Anion Gap 14, BUN 20 H, Creatinine 1.18, Estim Creat Clear Calc 52.25, Est GFR (MDRD) Non-Af 64, BUN/Creatinine Ratio 17.2, Glucose 97, Calcium 9.5 Micro: Microbiology 08/26/24 10:09 Mucosa - Nasopharyngeal Respiratory Panel (PCR) - Final 08/26/24 10:20 Nasal Secretion SARS-CoV-2 Antigen (Rapid) - Final Physical Exam Narrative General: Alert, no apparent distress HEENT: Atraumatic Eyes: Anicteric, Neck: Supple Respiratory: Clear to auscultation bilaterally, normal respiratory effort Cardiovascular: Regular rate GI: Soft, nondistended, reportedly little bit of tenderness palpation lower quadrants however when palpating with stethoscope did not seem to have any pain or distress Extremities: No edema Musculoskeletal: Moving all extremities Neuro: No overt focal neurological deficits Skin: No rashes appreciated Psych: Overall cooperative Assessment & Plan Assessment/Plan (1) Weakness: (2) Acute diarrhea: PLAN: Plan # Generalized weakness/debility/failure to thrive -Patient recently had been at [facility] and was discharged 08/20/2024 buthas been having diarrhea since that time -May be due to diarrhea but cannot say definitively, checking UA -PT/OT -08/27: UA ordered, yet to be collected, will follow-up, continue to work with physical therapy, case management social work following # Diarrhea -Unclear etiology -Stool studies ordered -Respiratory panel ordered and is negative -08/27: Has not had any significant diarrhea, had 1 formed bowel movement earliertoday, diarrhea resolved # Hypoxia, patient supposed to be on 3 L as needed at home -Patient 88% on room air now requiring 2 L of O2 -Chest x-ray with no acute abnormality -COVID and influenza negative, no tachycardia, tachypnea, shortness of breath orother indication that patient may have PE, it is possible there is component of atelectasis, incentive spirometer -Patient on nebs -No wheezing or other indication for IV steroids or that patient is having COPD exacerbation -08/27: Patient on nebs, per documentation he is supposed to be on 3 L as needed for his COPD, do not think there is an acute superimposed process at this time. He reports his breathing is at baseline, may just need to assess for updated O2 requirements on discharge # Anemia -08/27: Hemoglobin 12.8, was 14.2 on presentation, no noted ongoing blood loss but will check FOBT. Will also repeat in this afternoon to verify no further drop. Will continue Plavix for now given no vital instability or overt bleedinglow threshold to hold if needed. Will change Lovenox to SCDs Chronic medical problems: # Patient with noted history of COPD -Continue nebs #HX CAD/PAD/CVA -Continue home beta-joel and Plavix and statin # History of seizure disorder -Patient on Tegretol #Hypertension -Continue clonidine, metoprolol, nifedipine, losartan #Chronic BPH with obstruction -Continue home medications #Tobacco use -Advise cessation -Nicotine replacement available if desired #Depression/anxiety -Continue home medications #GERD -Continue PPI #DVT ppx: [facility] Celia Toribio MD Time spent in the patient's overall evaluation,decision-making process, review of diagnostic data, adjustment of management, discussion with other providers, nursing nursing and ancillary staff involved in patient's care documentation, 36minutes Charges/Coding Visit Charges Inpatient E&M: 69645 Subs Hosp L2 08/27/24 1252 <Electronically signed by Celia Toribio MD> Cosigner Signature (if applicable): CC: ~ Signed [facility] Work Phone: [phone] Progress note [facility] Medical Records Department [address] [place] [address] Progress Note - Hospitalist 08/27/24 1332 MR#: [id number] Acct: [id number] Name: PEDRO PABLO SIERRA Rep #:[id number] : 1950 74 From: Celia Toribio MD PCP: Dr. Daija Morton MD Status:ADM I NO Location: [place] [address] Hospitalist Note UA abnormal and is suggestive of UTI and given this and patient suprapubic tenderness we will startpatient on Rocephin and await urine culture 08/27/24 1332 Cosigner Signature (if applicable): CC: ~ Signed [facility]03-11-2025 Progress note [facility] Medical Records Department [address] [place] [address] Progress Note - Hospitalist 08/27/24830 MR#: [id number] Acct: [id number] Name: PEDRO PABLO SIERRA Rep #:[id number] : 1950 74 From: Celia Toribio MD PCP: Dr. Daija Morton MD Status:ADM I NO Location: [facility] BS638-8 Reason for Visit Reason for Visit: Diagnoses Diarrhea, unspecified (08/25/24) Weakness (08/25/24) Other malaise (08/25/24) Adult failure to thrive (08/25/24) Subjective Subjective Patient sitting in bed, reports some suprapubic tenderness, some chronic shortness of breath and chronic cough, has chronic pain in legs as well, had small bowel movement earlier, aside from the suprapubic discomfort for 1 day he denies any other acute complaints Objective Data Objective Data Vital Signs: Vital Signs Temp Pulse Resp BP Pulse Ox O2 Del Method O2 Flow Rate 97.5 F L 64 18 163/76 H 91 Nasal Cannula 2 08/27/24 08:00 08/27/24 08:15 08/27/24 08:00 08/27/24 08:00 08/27/24 08:00 08/27/24 08:00 08/27/24 08:00 Oxygen Flow Rate (L/min) 2 Oxygen Delivery Method Nasal Cannula Weight: 68.3 kg Body Mass Index (BMI) 22.8 Intake & Output: Intake and Output for Last 24 Hours 08/26/24 08/26/24 08/27/24 00:59 23:59 23:59 Intake Total 1000 / 1000 300 / 300 Output Total 400 / 400 300 / 800 800 / 800 Balance 600 / 600 0 / -500 -800 / -800 Lab / Micro Data 08/27/24 06:01 08/27/24 06:01 Labs: Laboratory Results - last 24 hr 08/26/24 06:10: Sodium 139, Potassium 3.6, Chloride 105, Carbon Dioxide 17.6 L, Anion Gap 16 H, BUN23 H, Creatinine 1.04, Estim Creat Clear Calc 58.77, Est GFR(MDRD) Non-Af 75, BUN/Creatinine Ratio 21.8 H, Glucose 88, Calcium 9.4, Phosphorus 3.1, Magnesium 1.9, Total Bilirubin 0.25, AST 23, ALT 28, Alkaline Phosphatase 67, Total Protein 6.9, Albumin 4.0, Globulin 2.9, Albumin/Globulin Ratio 1.4 08/26/24 09:19: Lactic Acid 1.1 08/27/24 06:01: WBC 4.1 L, RBC 4.07 L, Hgb 12.8 L, Hct 38.4 L, MCV 94.3 H, MCH 31.4, MCHC 33.3, RDWStd Deviation 46.1 H, RDW Coeff of Aly 13.3, Plt Count 253,MPV 10.0, Immature Gran % (Auto) 0.200, Neut % (Auto) 56.2, Lymph % (Auto) 23.0,Phelps % (Auto) 13.1 H, Eos % (Auto) 6.3 H, Baso % (Auto) 1.2 H, Absolute Neuts (auto) 2.3, Absolute Lymphs (auto) 0.95, Nucleated RBC % 0, Sodium 139, Potassium 3.4, Chloride 104, Carbon Dioxide 19.9 L, Anion Gap 14, BUN 20 H, Creatinine 1.18, Estim Creat ClearCalc 52.25, Est GFR (MDRD) Non-Af 64, BUN/Creatinine Ratio 17.2, Glucose 97, Calcium 9.5 Micro: Microbiology 08/26/24 10:09 Mucosa - Nasopharyngeal Respiratory Panel (PCR) - Final 08/26/24 10:20 Nasal Secretion SARS-CoV-2 Antigen (Rapid) - Final Physical Exam Narrative General: Alert, no apparent distress HEENT: Atraumatic Eyes: Anicteric, Neck: Supple Respiratory: Clear to auscultation bilaterally, normal respiratory effort Cardiovascular: Regular rate GI: Soft, nondistended, reportedly little bit of tenderness palpation lower quadrants however when palpating with stethoscope did not seem to have any pain or distress Extremities: No edema Musculoskeletal: Moving all extremities Neuro: No overt focal neurological deficits Skin: No rashes appreciated Psych: Overall cooperative Assessment & Plan Assessment/Plan (1) Weakness: (2) Acute diarrhea: PLAN: Plan # Generalized weakness/debility/failure to thrive -Patient recently had been at [facility] and was discharged 08/20/2024 buthas been having diarrhea since that time -May be due to diarrhea but cannot say definitively, checking UA -PT/OT -08/27: UA ordered, yet to be collected, will follow-up, continue to work with physical therapy, case management social work following # Diarrhea -Unclear etiology -Stool studies ordered -Respiratory panel ordered and is negative -08/27: Has not had any significant diarrhea, had 1 formed bowel movement earliertoday, diarrhea resolved # Hypoxia, patient supposed to be on 3 L as needed at home -Patient 88% on room air now requiring 2 L of O2 -Chest x-ray with no acute abnormality -COVID and influenza negative, no tachycardia, tachypnea, shortness of breath orother indication that patient may have PE, it is possible there is component of atelectasis, incentive spirometer -Patient on nebs -No wheezing or other indication for IV steroids or that patient is having COPD exacerbation -08/27: Patient on nebs, per documentation he is supposed to be on 3 L as needed for his COPD, do not think there is an acute superimposed process at this time. He reports his breathing is at baseline, may just need to assess for updated O2 requirements on discharge # Anemia -08/27: Hemoglobin 12.8, was 14.2 on presentation, no noted ongoing blood loss but will check FOBT. Will also repeat in this afternoon to verify no further drop. Will continue Plavix for now given no vital instability or overt bleedinglow threshold to hold if needed. Will change Lovenox to SCDs Chronic medical problems: # Patient with noted history of COPD -Continue nebs #HX CAD/PAD/CVA -Continue home beta-joel and Plavix and statin # History of seizure disorder -Patient on Tegretol #Hypertension -Continue clonidine, metoprolol, nifedipine, losartan #Chronic BPH with obstruction -Continue home medications #Tobacco use -Advise cessation -Nicotine replacement available if desired #Depression/anxiety -Continue home medications #GERD -Continue PPI #DVT ppx: [facility] Celia Toribio MD Time spent in the patient's overall evaluation,decision-making process, review of diagnostic data, adjustment of management, discussion with other providers, nursing nursing and ancillary staff involved in patient's care documentation, 36minutes Charges/Coding Visit Charges Inpatient E&M: 64549 Subs Hosp L2 08/27/24 1252 Cosigner Signature (if applicable): CC: ~ Signed [facility]03-10-2025 Progress note Author Celia Toribio [facility] Note Date/Time August 26, 2024 4:5 4pm [facility] Medical Records Department [address] [place] [address] Progress Note - Hospitalist 08/26/24906 MR#: [id number] Acct: [id number] Name: PEDRO PABLO SIERRA Rep #:[id number] : 1950 74 From: Celia Toribio MD PCP: Dr. Daija Morton MD Status:ADM I NO Location: MS3 XL999-5 Reason for Visit Reason for Visit: Diagnoses Diarrhea, unspecified (08/25/24) Weakness (08/25/24) Other malaise (08/25/24) Adult failure to thrive (08/25/24) Subjective Subjective Patient evaluated at bedside, reports he is having a lot of gas and feels like he is going to have a bowel movement, no diarrhea or vomiting, denies any shortness of breath Objective Data Objective Data Vital Signs: Vital Signs Temp Pulse Resp BP Pulse Ox O2 Del Method O2 Flow Rate 97.8 F 77 16 148/72 H 93 Nasal Cannula 2 08/26/24 07:35 08/26/24 07:35 08/26/24 07:35 08/26/24 07:35 08/26/24 07:35 08/26/24 07:38 08/26/24 07:38 Oxygen Flow Rate (L/min) 2 Oxygen Delivery Method Nasal Cannula Weight: 67.7 kg Body Mass Index (BMI) 22.6 Intake & Output: Intake and Output for Last 24 Hours 08/24/24 08/26/24 08/26/24 23:59 00:59 23:59 Intake Total 1000 / 1000 300 / 300 Output Total 400 / 400 300 / 300 Balance 600 / 600 0 / 0 Lab / Micro Data 08/26/24 06:10 08/26/24 06:10 Labs: Laboratory Results - last 24 hr 08/25/24 16:40: WBC 5.9, RBC 4.52 L, Hgb 14.2, Hct 43.3, MCV 95.8 H, MCH 31.4, MCHC 32.8, RDW Std Deviation 46.6 H, RDW Coeff of Aly 13.2, Plt Count 245, MPV 9.5, Immature Gran % (Auto) 0.300, Neut % (Auto) 78.4 H, Lymph % (Auto) 10.3 L, Phelps % (Auto) 9.9, Eos % (Auto) 0.3, Baso % (Auto) 0.8, Absolute Neuts (auto) 4.6, Absolute Lymphs (auto) 0.61 L, Nucleated RBC % 0, Sodium 139, Potassium 3.8, Chloride 102, Carbon Dioxide 24.5, Anion Gap 13, BUN 25 H, Creatinine 1.17,Est GFR (MDRD) Non- Af 65, BUN/Creatinine Ratio 21.4 H, Glucose 98, Calcium 10.0,Total Bilirubin 0.22, AST 26, ALT 32, Alkaline Phosphatase 77, Total Protein 7.7, Albumin 4.5, Globulin 3.2, Albumin/Globulin Ratio 1.4 08/26/24 06:10: WBC 4.7, RBC 4.26 L, Hgb 13.3, Hct 40.6, MCV 95.3 H, MCH 31.2, MCHC 32.8, RDW Std Deviation 46.7 H, RDW Coeff of Aly 13.3, Plt Count 242, MPV 9.9, Immature Gran % (Auto) 0.200, Neut % (Auto) 60.3, Lymph % (Auto) 19.8, Phelps% (Auto) 15.2 H, Eos % (Auto) 3.4, Baso % (Auto) 1.1 H, Absolute Neuts (auto) 2.9, Absolute Lymphs (auto) 0.94, Nucleated RBC % 0, Sodium 139, Potassium 3.6, Chloride 105, Carbon Dioxide 17.6 L, Anion Gap 16 H, BUN 23 H, Creatinine 1.04, Estim Creat Clear Calc 58.77, Est GFR (MDRD) Non-Af 75, BUN/Creatinine Ratio 21.8 H, Glucose 88, Calcium 9.4, Phosphorus 3.1, Magnesium 1.9, Total Bilirubin 0.25, AST 23, ALT 28, Alkaline Phosphatase 67, Total Protein 6.9, Albumin 4.0, Globulin 2.9, Albumin/Globulin Ratio 1.4 Radiography Diagnostic Testing: Radiology Impression Chest X-Ray 08/25/24 16:19 IMPRESSION: No acute airspace abnormality. [facility] Exam Narrative General: Alert, no apparent distress HEENT: Atraumatic Eyes: Anicteric, Neck: Supple Respiratory: Clear to auscultation bilaterally, normal respiratory effort Cardiovascular: Regular rate GI: Soft, nontender, nondistended Extremities: No edema Musculoskeletal: Moving all extremities Neuro: No overt focal neurological deficits Skin: No rashes appreciated Psych: Cooperative Assessment & Plan Assessment/Plan (1) Weakness: (2) Acute diarrhea: PLAN: Plan # Generalized weakness/debility/failure to thrive -Patient recently had been at [facility] and was discharged 08/20/2024 buthas been having diarrhea since that time -May be due to diarrhea but cannot say definitively, checking UA -PT/OT # Diarrhea -Unclear etiology -Stool studies ordered -Respiratory panel ordered and is negative # Acute hypoxia -Unclear etiology -Patient 88% on room air now requiring 2 L of O2 -Chest x-ray with no acute abnormality -COVID and influenza negative, no tachycardia, tachypnea, shortness of breath orother indication that patient may have PE, it is possible there is component of atelectasis, incentive spirometer -Patient on nebs -No wheezing or other indication for IV steroids or that patient is having COPD exacerbation # Patient with noted history of COPD -Continue nebs #HX CAD/PAD/CVA -Continue home beta-joel and Plavix and statin # History of seizure disorder -Patient on Tegretol #Hypertension -Continue clonidine, metoprolol, nifedipine, losartan #Chronic BPH with obstruction -Continue home medications #Tobacco use -Advise cessation -Nicotine replacement available if desired #Depression/anxiety -Continue home medications #GERD -Continue PPI #DVT ppx: Lovenox subcu Celia Toribio MD Charges/Coding Visit Charges Inpatient E&M: 81662 Subs Hosp L2 08/26/24 2399 <Electronically signed by Celia Toribio MD> Cosigner Signature (if applicable): CC: ~ Signed [facility] Work Phone: 1(721) 926-156503-10-2025 Progress note [facility] Medical Records Department [address] [place] [address] Progress Note - Hospitalist 08/26/24906 MR#: [id number] Acct: [id number] Name: PEDRO PABLO SIERRA Rep #:[id number] : 1950 74 From: Celia Toribio MD PCP: Dr. Daija Morton MD Status:ADM I NO Location: MS3 OU693-7 Reason for Visit Reason for Visit: Diagnoses Diarrhea, unspecified (08/25/24) Weakness (08/25/24) Other malaise (08/25/24) Adult failure to thrive (08/25/24) Subjective Subjective Patient evaluated at bedside, reports he is having a lot of gas and feels like he is going to have a bowel movement, no diarrhea or vomiting, denies any shortness of breath Objective Data Objective Data Vital Signs: Vital Signs Temp Pulse Resp BP Pulse Ox O2 Del Method O2 Flow Rate 97.8 F 77 16 148/72 H 93 Nasal Cannula 2 08/26/24 07:35 08/26/24 07:35 08/26/24 07:35 08/26/24 07:35 08/26/24 07:35 08/26/24 07:38 08/26/24 07:38 Oxygen Flow Rate (L/min) 2 Oxygen Delivery Method Nasal Cannula Weight: 67.7 kg Body Mass Index (BMI) 22.6 Intake & Output: Intake and Output for Last 24 Hours 08/24/24 08/26/24 08/26/24 23:59 00:59 23:59 Intake Total 1000 / 1000 300 / 300 Output Total 400 / 400 300 / 300 Balance 600 / 600 0 / 0 Lab / Micro Data 08/26/24 06:10 08/26/24 06:10 Labs: Laboratory Results - last 24 hr 08/25/24 16:40: WBC 5.9, RBC 4.52 L, Hgb 14.2, Hct 43.3, MCV 95.8 H, MCH 31.4, MCHC 32.8, RDW Std Deviation 46.6 H, RDW Coeff of Aly 13.2, Plt Count 245, MPV 9.5, Immature Gran % (Auto) 0.300, Neut %(Auto) 78.4 H, Lymph % (Auto) 10.3 L, Phelps % (Auto) 9.9, Eos % (Auto) 0.3, Baso % (Auto) 0.8, Absolute Neuts (auto) 4.6, Absolute Lymphs (auto) 0.61 L, Nucleated RBC % 0, Sodium 139, Potassium 3.8, Chloride 102, Carbon Dioxide 24.5, Anion Gap 13, BUN 25 H, Creatinine 1.17,Est GFR (MDRD) Non-Af 65, BUN/Creatinine Ratio 21.4 H, Glucose 98, Calcium 10.0,Total Bilirubin 0.22, AST 26, ALT 32, AlkalinePhosphatase 77, Total Protein 7.7, Albumin 4.5, Globulin 3.2, Albumin/Globulin Ratio 1.4 08/26/24 06:10: WBC 4.7, RBC 4.26 L, Hgb 13.3, Hct 40.6, MCV 95.3 H, MCH 31.2, MCHC 32.8, RDW Std Deviation 46.7 H, RDW Coeff of Aly 13.3, Plt Count 242, MPV 9.9, Immature Gran % (Auto) 0.200, Neut %(Auto) 60.3, Lymph % (Auto) 19.8, Phelps% (Auto) 15.2 H, Eos % (Auto) 3.4, Baso % (Auto) 1.1 H, Absolute Neuts (auto) 2.9, Absolute Lymphs (auto) 0.94, Nucleated RBC % 0, Sodium 139, Potassium 3.6, Chloride 105, Carbon Dioxide 17.6 L, Anion Gap 16 H, BUN 23 H, Creatinine 1.04, Estim Creat Clear Calc 58.77, Est GFR (MDRD) Non-Af 75, BUN/Creatinine Ratio 21.8 H, Glucose 88, Calcium 9.4, Phosphorus 3.1, Magnesium 1.9, Total Bilirubin 0.25, AST 23, ALT 28, Alkaline Phosphatase 67, Total Protein 6.9, Albumin 4.0, Globulin 2.9, Albumin/Globulin Ratio 1.4 Radiography Diagnostic Testing: Radiology Impression Chest X-Ray 08/25/24 16:19 IMPRESSION: No acute airspace abnormality. Reading [facility] Physical Exam Narrative General: Alert, no apparent distress HEENT: Atraumatic Eyes: Anicteric, Neck: Supple Respiratory: Clear to auscultation bilaterally, normal respiratory effort Cardiovascular: Regular rate GI: Soft, nontender, nondistended Extremities: No edema Musculoskeletal: Moving all extremities Neuro: No overt focal neurological deficits Skin: No rashes appreciated Psych: Cooperative Assessment & Plan Assessment/Plan (1) Weakness: (2) Acute diarrhea: PLAN: Plan # Generalized weakness/debility/failure to thrive -Patient recently had been at [facility] and was discharged 08/20/2024 buthas been having diarrhea since that time -May be due to diarrhea but cannot say definitively, checking UA -PT/OT # Diarrhea -Unclear etiology -Stool studies ordered -Respiratory panel ordered and is negative # Acute hypoxia -Unclear etiology -Patient 88% on room air now requiring 2 L of O2 -Chest x-ray with no acute abnormality -COVID and influenza negative, no tachycardia, tachypnea, shortness of breath orother indication that patient may have PE, it is possible there is component of atelectasis, incentive spirometer -Patient on nebs -No wheezing or other indication for IV steroids or that patient is having COPD exacerbation # Patient with noted history of COPD -Continue nebs #HX CAD/PAD/CVA -Continue home beta-joel and Plavix and statin # History of seizure disorder -Patient on Tegretol #Hypertension -Continue clonidine, metoprolol, nifedipine, losartan #Chronic BPH with obstruction -Continue home medications #Tobacco use -Advise cessation -Nicotine replacement available if desired #Depression/anxiety -Continue home medications #GERD -Continue PPI #DVT ppx: Lovenox subcu Celia Toribio MD Charges/Coding Visit Charges Inpatient E&M: 73840 Subs Hosp L2 08/26/24 1654 Cosigner Signature (if applicable): CC: ~ Signed [facility]03-09-2025 History and physical note Author Lisha Talamantes [facility] Note Date/Time August 25, 2024 7:00 pm [facility] Medical Records Department [address] [place] [address] H&P Exam - Hospitalist 08/25/24 1820 MR#: [id number] Acct: [id number] Name: PEDRO PABLO SIERRA Rep #:[id number] : 1950 74 From: Lisha Talamantes DO PCP: Dr. Daija Morton MD Status:ADM I NO Location: MS3 [id number] HPI - General General Date of Admission: 08/25/24 Date of Service: 08/25/24 Chief Complaint: Diarrhea/generalized weakness HPI Narrative PEDRO PABLO SIERRA, is a 74 M who presented to the emergency department [facility] on 08/25/2024 with a chief complaint of generalized weakness and diarrhea. Patient had recently been at [facility] and was discharged about 5 days ago on 08/20/2024. His daughter called in and assisted with history but was not able to get the bedside at the time of my evaluation. Per her report he been having diarrhea since he was discharged home. He evidently was having it prior to discharge as well. He does have somebaseline dementia and has been having diarrhea all of her house. He also smokesand has been dropping his cigarettes all of her trailer and she reports he has been having some weakness. It does not appear she has had any falls. Patient'sreview of systems is overall negative except for his diarrhea. He is not clear with his recent medical history and it does not appear he has been compliant with his medications. Vital signs on presentation showed temperature of 97.7, heart rate 66, blood pressure 197/90, respiratory was 24 and oxygen saturation is 93% on room air. His CBC is completely unremarkable. Chemistry panel is unremarkable. Chest x-ray is unremarkable for acute findings. [facility] Medical History Compression fx, lumbar spine Hypertension Falls Hypertension Closed fracture of right superior pubic ramus Multiple falls Compression fracture of thoracic vertebra History of atrial fibrillation Iron deficiency anemia Chronic respiratory failure with hypoxia Osteoporosis Lumbar compression fracture Compression fracture Obstructive sleep apnea Hyperlipidemia Asthma Peripheral arterial occlusive disease Seizure disorder Chronic obstructive pulmonary disease Coronary artery disease Lupus anticoagulant disorder BPH (benign prostatic hyperplasia) Ulcerative colitis Peripheral vascular disease Anxiety COPD (chronic obstructive pulmonary disease) with emphysema Closed fracture of right inferior pubic ramus Acute UTI COPD (chronic obstructive pulmonary disease) UTI (urinary tract infection) Depression Diabetes Kidney stones Chronic pain Pancreatitis On home oxygen therapy Irregular heart beat Atrial fibrillation Stroke/cerebrovascular accident Smoker Falls frequently Seizures Sleep apnea COPD (chronic obstructive pulmonary disease) Asthma High cholesterol Tobacco abuse Home Medications ?Medication ?Instructions ?Recorded ?Last Taken ?Type tamsulosin 0.4 mg capsule 0.4 mg PO QHS bph 01/26/14 1 History finasteride 5 mg tablet 5 mg PO DAILY prostate 11/1403/28/23 History atorvastatin 40 mg tablet 40 mg PO QHS Cholesterol 12/0203/28/23 History mirtazapine 15 mg tablet 15 mg PO QHS anti depressant 08/16/19 03/28/23 History clopidogrel 75 mg tablet 75 mg PO DAILY blood thinner 10/25/19 03/28/23 History losartan 100 mg tablet 100 mg PO DAILY Blood pressu re 08/19/21 03/28/23 History pantoprazole 40 mg tablet,delayed 40 mg PO DAILY GERD 08/19/21 03/28/23 History release nifedipine 90 mg tablet,extended 90 mg PO DAILY blood pressure 11/25/21 03/28/23 History release alendronate 70 mg tablet 70 mg PO QWEEK #1 TAB 03/28/23 Rx metoprolol tartrate 25 mg tablet 25 mg PO DAILY Blood pressure 03/30/23 03/28/23 History sennosides 8.6 mg-docusate sodium 2 tab PO BID PRN PRN Constipation 04/04/23 Unknown Rx 50 mg tablet (Stool #0 tabs Softener-Stimulant Laxative) acetaminophen 500 mg tablet 1,000 mg (2 x 500 mg) PO Q 8 30 07/26/23 Unknown Rx days #0 tabs albuterol sulfate 90 mcg/actuation 1 puff inhalation Q 8H 08/22/23 Unknown History aerosol inhaler carbamazepine 200 mg 200 mg PO Q12H 08/22/23 Unkn own History tablet,extended release,12 hr cholecalciferol (vitamin D3) 50 50 mcg PO DAILY Unknown History mcg (2,000 unit) tablet clonidine HCl 0.1 mg tablet 0.1 mg PO BID 08/22/23 Unk nown History guaifenesin 100 mg/5 mL oral liquid 200 mg PO Q4H PRN congestion 08/22/23 Unknown History sertraline 100 mg tablet 100 mg PO DAILY 08/22/23 Unk nown History ergocalciferol (vitamin D2) 1,250 1,250 mcg PO Q7D #0 caps 04/10/24 Unknown Rx mcg (50,000 unit) capsule (Vitamin D2) Allergy/AdvReac Type Severity Reaction Status Date / Time No Known Allergies Allergy Verified 04/06/24 11:12 Family History Other Heart disease Surgical History S/P arterial stent History of appendectomy Social History (Updated 08/25/24 @ 18:[address] 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 quit several years ago substance use type: does not use caffeine: Yes Type: coffee Number of servings: 3 ROS Constitutional Constitutional: Reports weakness; Denies anorexia, change in weight, chills, fatigue, fever(s), malaise, night sweats or other Eyes Eyes: Denies blurry vision, change in eye color, change in vision, discharge from eye(s), double vision, erythema, eye pain, loss of vision or other ENT HEENT: Denies abnormal hearing, dysphagia, ear pain, epistaxis, headache(s), hearing loss, nasal congestion, nasal discharge, post nasal drip, sinus pressure, sore throat or other Cardiovascular Cardiovascular: Denies chest pain, claudication, dyspnea on exertion, edema, lightheadedness, orthopnea, palpitations, paroxysmal nocturnal dyspnea, rapid heart rate, syncope or other Respiratory/Chest Respiratory/Chest: Denies cough, dyspnea, excessive phlegm production, hemoptysis, productive cough, shortness of breath at rest, shortness of breath with exertion, wheezing or other Gastrointestinal Gastrointestinal: Reports diarrhea; Denies abdominal pain, coffee ground emesis,constipation, dyspepsia, hematemesis, hematochezia, loose stools, melena, nausea, vomiting or other Genitourinary Genitourinary: Denies burning urination, difficulty urinating, dysuria, hematuria, nocturia, urinary frequency, urinary hesitancy, urinary incontinence,urinary urgency or other Musculoskeletal Musculoskeletal: Denies arthralgias, back pain, joint pain, joint stiffness, joint swelling, myalgias, neck pain or other Neurologic Neurologic: Denies abnormal gait, abnormal speech, confusion, disequilibrium, dizziness, focal weakness, headache(s), numbness, paresthesias, seizure-like activity, seizures, syncope, tingling, tremor(s) or other Psychiatric Psychiatric: Denies anxiety, depression, homicidal ideation, suicidal ideation or other Endocrine Endocrinology: Denies change in body appearance, cold intolerance, excessive sweating, heat intolerance, polydipsia, polyuria or other Hematologic/Lymphatic Hematologic/Lymphatic: Denies anemia, easy bleeding, easy bruising, lymphadenopathy or other Allergic/Immunologic Allergic/Immunologic: Denies rhinitis, hives, eczemia, asthma or other Vital Signs Vital Signs Vital Signs: 08/25/24 16:12 Temperature 97.7 F L Temperature Source Temporal Physical Exam Const alert, no apparent distress, average body habitus and well nourished Constitutional Narrative: Older, white male, sitting up in bed, appears nontoxic and comfortable, orientedto self and place but not time General Appearance: cooperative HEENT normocephalic and head/scalp atraumatic HEENT Narrative: Mild hearing loss, Mallampati 2, no thrush Eyes conjunctivae normal Eyes Narrative: No scleral icterus Resp normal respiratory effort, no retractions, no use of accessory muscles and No clear to auscultation bilaterally Resp Narrative: Scattered end expiratory wheezes Auscultation: wheezes; Negative for rales or rhonchi Cardio regular rate, regular rhythm, S1 normal heart sound, S2 normal heart sound, no murmurs, no rub, no gallops and no clicks GI normal to inspection, nondistended, normoactive bowel sounds, soft to palpation and non-tender Extremity no clubbing, cyanosis or edema Extremity Narrative: Pedal and radial pulses are 2+ Neuro oriented x3 and moves all extremities Neuro Narrative: Significant generalized weakness-proximal greater than distal but no focal deficits Sensorium / Orientation: awake, alert, oriented to person and oriented to place;Negative for oriented to time Speech: speech normal Psych Psych Narrative: Pleasantly confused at this time however has been intermittently agitated Results Lab / Micro Data 08/25/24 16:40 08/25/24 16:40 Labs: Laboratory Results - last 24 hr 08/25/24 16:40: WBC 5.9, RBC 4.52 L, Hgb 14.2, Hct 43.3, MCV 95.8 H, MCH 31.4, MCHC 32.8, RDW Std Deviation 46.6 H, RDW Coeff of Aly 13.2, Plt Count 245, MPV 9.5, Immature Gran % (Auto) 0.300, Neut % (Auto) 78.4 H, Lymph % (Auto) 10.3 L, Phelps % (Auto) 9.9, Eos % (Auto) 0.3, Baso % (Auto) 0.8, Absolute Neuts (auto) 4.6, Absolute Lymphs (auto) 0.61 L, Nucleated RBC % 0, Sodium 139, Potassium 3.8, Chloride 102, Carbon Dioxide 24.5, Anion Gap 13, BUN 25 H, Creatinine 1.17,Est GFR (MDRD) Non- Af 65, BUN/Creatinine Ratio 21.4 H, Glucose 98, Calcium 10.0,Total Bilirubin 0.22, AST 26, ALT 32, Alkaline Phosphatase 77, Total Protein 7.7, Albumin 4.5, Globulin 3.2, Albumin/Globulin Ratio 1.4 Imaging Radiology Impression Chest X-Ray 08/25/24 16:19 IMPRESSION: No acute airspace abnormality. Reading Location: [facility] Assessment & Plan Assessment/Plan (1) Acute diarrhea: (2) Weakness: (3) Failure to thrive: QUALIFIERS: Failure to thrive age range: in adult Qualified Code(s): R62.7 - Adult failure to thrive (4) Debility: PLAN: Plan Acute diarrhea -Patient does not appear to be dehydrated -Check enteric panel and C. difficile -Monitor stools -If enteric panel and C. difficile are negative consider Imodium if diarrhea is ongoing Generalized weakness/debility/failure to thrive -Since that family is having difficulty taking care of him in the current livingenvironment -Was recently discharged from [facility] however patient wasadamant that he did not want to go back to the same place -? If ECF should be pursued -PT/OT/case management consultation pending COPD -Patient does have some wheezing on presentation but not hypoxic -Will utilize scheduled and as needed nebulizers -If wheezing persistent may need to consider short taper of steroids Osteoporosis -Restart alendronate at discharge -Cont home cholecalciferol Seizure disorder -Continue home carbamazepine CAD/essential hypertension/hyperlipidemia/history of stroke/PAD -Blood pressure is markedly elevated on presentation however it does not appear patient been compliant with his medications -Restart home nifedipine 90 mg daily -Restart home metoprolol 25 mg p.o. daily -restart home losartan 100 mg daily -Restart home clonidine 0.1 mg p.o. twice daily -Restart home Plavix History of atrial fibrillation -Patient is on no current treatment other than beta-joel -Monitor vital signs BPH with obstruction -continue home Flomax -Continue home finasteride GERD -continue PPI Tobacco abuse -14 mcg nicotine patch -Recommend cessation Alzheimer's type dementia -Suspect patient needs more supervision than the currently available home -Monitor for behavior abnormalities and sundowning -May need to consider adding low-dose risperidone if problematic DVT prophylaxis -Subcu Lovenox daily CODE STATUS -Full code but unverified as no one was available to have end-of-life discussionwith -Will need clarified Charges/Coding Visit Charges Inpatient E&M: 18015 Init Hosp L2 08/25/24 1900 <Electronically signed by Lisha Talamantes DO> Cosigner Signature (if applicable): CC: Dr. Daija Morton MD; Dr. Lisha Talamantes DO~ Signed [facility] Work Phone: [phone] Discharge summary Author Jaden Jauregui [facility] Note Date/Time August 25, 2024 6:15 pm [facility] Medical Records Department [address] [place] [id number] Emergency Department Summary 08/25/24 MR#: [id number] Acct: [id number] Name: PEDRO PABLO SIERRA Rep #:[id number] : 1950 74 From: Jaden Jauregui MD PCP: Dr. Daija Morton MD Status:REG E R Location: ED HPI HPI - GI History of Present Illness Chief Complaint: Confusion Informant: patient and EMS Narrative Narrative: 74-year-old male presents with diarrhea and feeling weak. Daughter is not here but she called in the provide a little bit of extra history before the patient'sarrival, apparently he has been in a senior care [facility] when he arrived home 5 days ago, he was having diarrhea when he got home, patient stateshe was having it before he left the senior care as well, and he has been havingdiarrhea all over the daughter's trailer where he has been living, he has Alzheimer's, so he has been smoking and dropping cigarettes all over the trailer, is weak. History is limited for the patient but he states has been drinking fluids and not having abdominal pain and not vomiting. Denies any cough or out of breath. When asked if he was on antibiotics for anything recently he does not know. When asked if he has a history of C. difficile he does not know. [facility] Medical History Compression fx, lumbar spine Hypertension Falls Hypertension Closed fracture of right superior pubic ramus Multiple falls Compression fracture of thoracic vertebra History of atrial fibrillation Iron deficiency anemia Chronic respiratory failure with hypoxia Osteoporosis Lumbar compression fracture Compression fracture Obstructive sleep apnea Hyperlipidemia Asthma Peripheral arterial occlusive disease Seizure disorder Chronic obstructive pulmonary disease Coronary artery disease Lupus anticoagulant disorder BPH (benign prostatic hyperplasia) Ulcerative colitis Peripheral vascular disease Anxiety COPD (chronic obstructive pulmonary disease) with emphysema Closed fracture of right inferior pubic ramus Acute UTI COPD (chronic obstructive pulmonary disease) UTI (urinary tract infection) Depression Diabetes Kidney stones Chronic pain Pancreatitis On home oxygen therapy Irregular heart beat Atrial fibrillation Stroke/cerebrovascular accident Smoker Falls frequently Seizures Sleep apnea COPD (chronic obstructive pulmonary disease) Asthma High cholesterol Tobacco abuse Home Medications ?Medication ?Instructions ?Recorded ?Last Taken ?Type tamsulosin 0.4 mg capsule 0.4 mg PO QHS bph 01/26/14 1 History finasteride 5 mg tablet 5 mg PO DAILY prostate 11/1403/28/23 History atorvastatin 40 mg tablet 40 mg PO QHS Cholesterol 12/0203/28/23 History mirtazapine 15 mg tablet 15 mg PO QHS anti depressant 08/16/19 03/28/23 History clopidogrel 75 mg tablet 75 mg PO DAILY blood thinner 10/25/19 03/28/23 History losartan 100 mg tablet 100 mg PO DAILY Blood pressu re 08/19/21 03/28/23 History pantoprazole 40 mg tablet,delayed 40 mg PO DAILY GERD 08/19/21 03/28/23 History release nifedipine 90 mg tablet,extended 90 mg PO DAILY blood pressure 11/25/21 03/28/23 History release alendronate 70 mg tablet 70 mg PO QWEEK #1 TAB 03/28/23 Rx metoprolol tartrate 25 mg tablet 25 mg PO DAILY Blood pressure 03/30/23 03/28/23 History sennosides 8.6 mg-docusate sodium 2 tab PO BID PRN PRN Constipation 04/04/23 Unknown Rx 50 mg tablet (Stool #0 tabs Softener-Stimulant Laxative) acetaminophen 500 mg tablet 1,000 mg (2 x 500 mg) PO Q 8 30 07/26/23 Unknown Rx days #0 tabs albuterol sulfate 90 mcg/actuation 1 puff inhalation Q 8H 08/22/23 Unknown History aerosol inhaler carbamazepine 200 mg 200 mg PO Q12H 08/22/23 Unkn own History tablet,extended release,12 hr cholecalciferol (vitamin D3) 50 50 mcg PO DAILY Unknown History mcg (2,000 unit) tablet clonidine HCl 0.1 mg tablet 0.1 mg PO BID 08/22/23 Unk nown History guaifenesin 100 mg/5 mL oral liquid 200 mg PO Q4H PRN congestion 08/22/23 Unknown History sertraline 100 mg tablet 100 mg PO DAILY 08/22/23 Unk nown History ergocalciferol (vitamin D2) 1,250 1,250 mcg PO Q7D #0 caps 04/10/24 Unknown Rx mcg (50,000 unit) capsule (Vitamin D2) Allergy/AdvReac Type Severity Reaction Status Date / Time No Known Allergies Allergy Verified 04/06/24 11:12 Family History Other Heart disease Surgical History S/P arterial stent History of appendectomy Social History household members: none Smoking Status: Current some day smoker tobacco type: cigarettes how long ago did patient quit smoking: Has not smoked in 7 weeks alcohol intake: former details: Former alcoholic quit several years ago substance use type: does not use caffeine: Yes Type: coffee Number of servings: 3 ROS ROS ED Constitutional Constitutional ED: Reports fatigue; Denies chills or fever(s) Eyes Eyes: Denies change in vision or diplopia ENT ENT ED: Denies rhinorrhea or sore throat Cardiovascular Cardiovascular: Denies chest pain or palpitations Respiratory/Chest Respiratory/Chest: Denies cough or dyspnea Gastrointestinal Gastrointestinal: Reports diarrhea; Denies abdominal pain, melena, nausea or vomiting Genitourinary Genitourinary ED: Denies dysuria or hematuria Musculoskeletal Musculoskeletal: Denies back pain or neck pain Integumentary Denies abscess or rash Neurologic Neurologic: Reports confusion; Denies abnormal speech, focal weakness, headache(s) or paresthesias Psychiatric Psychiatric: Denies suicidal thoughts EXAM Physical Exam Const Vital Signs: 08/25/24 16:12 Temperature 97.7 F L Temperature Source Temporal Positive well nourished and well developed General Appearance ED: well developed and NAD HEENT Reports moist mucous membranes normocephalic and atraumatic Eyes Eyes Narrative: Dilated right pupil with disconjugate gaze right eye. Left appears normal. Left EOMs generally intact. Neck full ROM, no lymphadenopathy and supple Resp normal respiratory effort and clear to auscultation bilaterally Cardio regular rate, regular rhythm and no murmurs Rate: Negative for tachycardic GI non-tender and non-distended Auscultation: normoactive bowel sounds Palpation: soft Back/Spine no CVA tenderness General Back: other FROM Extremity normal to inspection General Extremety ED: Negative for edema, pulses abnormal or tenderness General Extremity: Negative for edema or pulses abnormal Neuro CN's II-XII intact bilaterally and no sensory deficits noted Sensorium / Orientation: awake, alert, oriented to person and oriented to place Motor Exam: strength 5/5 throughout Psych mental status grossly normal and thought process normal Skin no rashes or lesions noted and no wounds Skin Narrative: Patient has brown diarrhea scattered about his legs, his feet, and his clothes. MDM MDM MDM Narrative Medical decision making narrative: Patient was given IV fluids, his vital signs were monitored and stable, obtainedlabs which are unremarkable, except for prerenal azotemia consistent with mild dehydration. Ordered enteric bacterial panel as well as C. difficile given the limited information available, he has not provided diarrhea yet for this test shalini run but given his debility and history, plan will be admission to the hospital. Lab Data Attestation: I reviewed the patient's lab results. Labs: Laboratory Results - last 24 hr 08/25/24 16:40 WBC 5.9 RBC 4.52 L Hgb 14.2 Hct 43.3 MCV 95.8 H MCH 31.4 MCHC 32.8 RDW Std Deviation 46.6 H RDW Coeff of Aly 13.2 Plt Count 245 MPV 9.5 Immature Gran % (Auto) 0.300 Neut % (Auto) 78.4 H Lymph % (Auto) 10.3 L Phelps % (Auto) 9.9 Eos % (Auto) 0.3 Baso % (Auto) 0.8 Absolute Neuts (auto) 4.6 Absolute Lymphs (auto) 0.61 L Nucleated RBC % 0 Sodium 139 Potassium 3.8 Chloride 102 Carbon Dioxide 24.5 Anion Gap 13 BUN 25 H Creatinine 1.17 Est GFR (MDRD) Non-Af 65 BUN/Creatinine Ratio 21.4 H Glucose 98 Calcium 10.0 Total Bilirubin 0.22 AST 26 ALT 32 Alkaline Phosphatase 77 Total Protein 7.7 Albumin 4.5 Globulin 3.2 Albumin/Globulin Ratio 1.4 Radiography Diagnostic Testing: Clinical Impression(s) from Imaging Studies Chest X-Ray 08/25/24 16:19 IMPRESSION: No acute airspace abnormality. Reading [facility] Management Discussion w/another healthcare provider: Hospitalist Discharge Plan Dx/Rx/DC Orders Clinical Impression: Debility, Acute diarrhea, Mild dehydration Disposition Disposition: Acute Care Hospital [facility] What to do if you have Problems For any increased pain, shortness of breath, bleeding, nausea or vomiting, chestpain, or any unexpected problems, contact your Primary Care Provider. Call [facility] ([phone]) or report to the closest Emergency Room. Call 911 if necessary. 08/25/241814 <Electronically signed by Jaden Jauregui MD> Cosigner Signature (if applicable): CC: Dr. Daija Morton MD ~ Signed [facility] Work Phone: [phone] 598-237703-09-2025 History and physical note [facility] Medical Records Department [address] [place] [address] H&P Exam - Hospitalist 08/25/24 1820 MR#: [id number] Acct: [id number] Name: MARIELAPEDRO PABLO Rep #:[id number] : 1950 74 From: Lisha Talamantes DO PCP: Dr. Daija Morton MD Status:ADM I NO Location: MS3 [id number] HPI - General General Date of Admission: 08/25/24 Date of Service: 08/25/24 Chief Complaint: Diarrhea/generalized weakness HPI Narrative PEDRO PBALO SIERRA, is a 74 M who presented to the emergency department [facility] on 08/25/2024 with a chief complaint of generalized weakness and diarrhea. Patient had recently been at [facility] and was discharged about 5 days ago on 08/20/2024. His daughter called in and assisted with history but was not able to get the bedside at the time of my evaluation. Per her report he been having diarrhea since he was discharged home. He evidently was having it prior to discharge as well. He does have somebaseline dementia and has been having diarrhea all of her house. He also smokesand has been dropping his cigarettes all of her trailer and she reports he has been having some weakness. It does not appear she has had any falls. Patient'sreview of systems is overall negative except for his diarrhea. He is not clear with his recent medical history and it does not appear he has been compliant with his medications. Vital signs on presentation showed temperature of 97.7, heart rate 66, blood pressure 197/90, respiratory was 24 and oxygen saturation is 93% on room air. His CBC is completely unremarkable. Chemistry panel is unremarkable. Chest x-ray is unremarkable for acute findings. [facility] Medical History Compression fx, lumbar spine Hypertension Falls Hypertension Closed fracture of right superior pubic ramus Multiple falls Compression fracture of thoracic vertebra History of atrial fibrillation Iron deficiency anemia Chronic respiratory failure with hypoxia Osteoporosis Lumbar compression fracture Compression fracture Obstructive sleep apnea Hyperlipidemia Asthma Peripheral arterial occlusive disease Seizure disorder Chronic obstructive pulmonary disease Coronary artery disease Lupus anticoagulant disorder BPH (benign prostatic hyperplasia) Ulcerative colitis Peripheral vascular disease Anxiety COPD (chronic obstructive pulmonary disease) with emphysema Closed fracture of right inferior pubic ramus Acute UTI COPD (chronic obstructive pulmonary disease) UTI (urinary tract infection) Depression Diabetes Kidney stones Chronic pain Pancreatitis On home oxygen therapy Irregular heart beat Atrial fibrillation Stroke/cerebrovascular accident Smoker Falls frequently Seizures Sleep apnea COPD (chronic obstructive pulmonary disease) Asthma High cholesterol Tobacco abuse Home Medications ?Medication ?Instructions ?Recorded ?Last Taken ?Type tamsulosin 0.4 mg capsule 0.4 mg PO QHS bph 01/26/14 1 History finasteride 5 mg tablet 5 mg PO DAILY prostate 11/1403/28/23 History atorvastatin 40 mg tablet 40 mg PO QHS Cholesterol 12/0203/28/23 History mirtazapine 15 mg tablet 15 mg PO QHS anti depressant 08/16/19 03/28/23 History clopidogrel 75 mg tablet 75 mg PO DAILY blood thinner 10/25/19 03/28/23 History losartan 100 mg tablet 100 mg PO DAILY Blood pressu re 08/19/21 03/28/23 History pantoprazole 40 mg tablet,delayed 40 mg PO DAILY GERD 08/19/21 03/28/23 History release nifedipine 90 mg tablet,extended 90 mg PO DAILY blood pressure 11/25/21 03/28/23 History release alendronate 70 mg tablet 70 mg PO QWEEK #1 TAB 03/28/23 Rx metoprolol tartrate 25 mg tablet 25 mg PO DAILY Blood pressure 03/30/23 03/28/23 History sennosides 8.6 mg-docusate sodium 2 tab PO BID PRN PRN Constipation 04/04/23 Unknown Rx 50 mg tablet (Stool #0 tabs Softener-Stimulant Laxative) acetaminophen 500 mg tablet 1,000 mg (2 x 500 mg) PO Q 8 30 07/26/23 Unknown Rx days #0 tabs albuterol sulfate 90 mcg/actuation 1 puff inhalation Q 8H 08/22/23 Unknown History aerosol inhaler carbamazepine 200 mg 200 mg PO Q12H 08/22/23 Unkn own History tablet,extended release,12 hr cholecalciferol (vitamin D3) 50 50 mcg PO DAILY Unknown History mcg (2,000 unit) tablet clonidine HCl 0.1 mg tablet 0.1 mg PO BID 08/22/23 Unk nown History guaifenesin 100 mg/5 mL oral liquid 200 mg PO Q4H PRN congestion 08/22/23 Unknown History sertraline 100 mg tablet 100 mg PO DAILY 08/22/23 Unk nown History ergocalciferol (vitamin D2) 1,250 1,250 mcg PO Q7D #0 caps 04/10/24 Unknown Rx mcg (50,000 unit) capsule (Vitamin D2) Allergy/AdvReac Type Severity Reaction Status Date / Time No Known Allergies Allergy Verified 04/06/24 11:12 Family History Other Heart disease Surgical History S/P arterial stent History of appendectomy Social History (Updated 08/25/24 @ 18:[address] 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 quit several years ago substance use type: does not use caffeine: Yes Type: coffee Number of servings: 3 ROS Constitutional Constitutional: Reports weakness; Denies anorexia, change in weight, chills, fatigue, fever(s), malaise, night sweats or other Eyes Eyes: Denies blurry vision, change in eye color, change in vision, discharge from eye(s), double vision, erythema, eye pain, loss of vision or other ENT HEENT: Denies abnormal hearing, dysphagia, ear pain, epistaxis, headache(s), hearing loss, nasal congestion, nasal discharge, post nasal drip, sinus pressure, sore throat or other Cardiovascular Cardiovascular: Denies chest pain, claudication, dyspnea on exertion, edema, lightheadedness, orthopnea, palpitations, paroxysmal nocturnal dyspnea, rapid heart rate, syncope or other Respiratory/Chest Respiratory/Chest: Denies cough, dyspnea, excessive phlegm production, hemoptysis, productive cough, shortness of breath at rest, shortness of breath with exertion, wheezing or other Gastrointestinal Gastrointestinal: Reports diarrhea; Denies abdominal pain, coffee ground emesis,constipation, dyspepsia, hematemesis, hematochezia, loose stools, melena, nausea, vomiting or other Genitourinary Genitourinary: Denies burning urination, difficulty urinating, dysuria, hematuria, nocturia, urinary frequency, urinary hesitancy, urinary incontinence,urinary urgency or other Musculoskeletal Musculoskeletal: Denies arthralgias, back pain, joint pain, joint stiffness, joint swelling, myalgias, neck pain or other Neurologic Neurologic: Denies abnormal gait, abnormal speech, confusion, disequilibrium, dizziness, focal weakness, headache(s), numbness, paresthesias, seizure-like activity, seizures, syncope, tingling, tremor(s) or other Psychiatric Psychiatric: Denies anxiety, depression, homicidal ideation, suicidal ideation or other Endocrine Endocrinology: Denies change in body appearance, cold intolerance, excessive sweating, heat intolerance, polydipsia, polyuria or other Hematologic/Lymphatic Hematologic/Lymphatic: Denies anemia, easy bleeding, easy bruising, lymphadenopathy or other Allergic/Immunologic Allergic/Immunologic: Denies rhinitis, hives, eczemia, asthma or other Vital Signs Vital Signs Vital Signs: 08/25/24 16:12 Temperature 97.7 F L Temperature Source Temporal Physical Exam Const alert, no apparent distress, average body habitus and well nourished Constitutional Narrative: Older, white male, sitting up in bed, appears nontoxic and comfortable, orientedto self and place but not time General Appearance: cooperative HEENT normocephalic and head/scalp atraumatic HEENT Narrative: Mild hearing loss, Mallampati 2, no thrush Eyes conjunctivae normal Eyes Narrative: No scleral icterus Resp normal respiratory effort, no retractions, no use of accessory muscles and No clear to auscultationbilaterally Resp Narrative: Scattered end expiratory wheezes Auscultation: wheezes; Negative for rales or rhonchi Cardio regular rate, regular rhythm, S1 normal heart sound, S2 normal heart sound, no murmurs, no rub, no gallops and no clicks GI normal to inspection, nondistended, normoactive bowel sounds, soft to palpation and non-tender Extremity no clubbing, cyanosis or edema Extremity Narrative: Pedal and radial pulses are 2+ Neuro oriented x3 and moves all extremities Neuro Narrative: Significant generalized weakness-proximal greater than distal but no focal deficits Sensorium / Orientation: awake, alert, oriented to person and oriented to place;Negative for oriented to time Speech: speech normal Psych Psych Narrative: Pleasantly confused at this time however has been intermittently agitated Results Lab / Micro Data 08/25/24 16:40 08/25/24 16:40 Labs: Laboratory Results - last 24 hr 08/25/24 16:40: WBC 5.9, RBC 4.52 L, Hgb 14.2, Hct 43.3, MCV 95.8 H, MCH 31.4, MCHC 32.8, RDW Std Deviation 46.6 H, RDW Coeff of Aly 13.2, Plt Count 245, MPV 9.5, Immature Gran % (Auto) 0.300, Neut %(Auto) 78.4 H, Lymph % (Auto) 10.3 L, Phelps % (Auto) 9.9, Eos % (Auto) 0.3, Baso % (Auto) 0.8, Absolute Neuts (auto) 4.6, Absolute Lymphs (auto) 0.61 L, Nucleated RBC % 0, Sodium 139, Potassium 3.8, Chloride 102, Carbon Dioxide 24.5, Anion Gap 13, BUN 25 H, Creatinine 1.17,Est GFR (MDRD) Non-Af 65, BUN/Creatinine Ratio 21.4 H, Glucose 98, Calcium 10.0,Total Bilirubin 0.22, AST 26, ALT 32, AlkalinePhosphatase 77, Total Protein 7.7, Albumin 4.5, Globulin 3.2, Albumin/Globulin Ratio 1.4 Imaging Radiology Impression Chest X-Ray 08/25/24 16:19 IMPRESSION: No acute airspace abnormality. Reading Location: [facility] Assessment & Plan Assessment/Plan (1) Acute diarrhea: (2) Weakness: (3) Failure to thrive: QUALIFIERS: Failure to thrive age range: in adult Qualified Code(s): R62.7 - Adult failure to thrive (4) Debility: PLAN: Plan Acute diarrhea -Patient does not appear to be dehydrated -Check enteric panel and C. difficile -Monitor stools -If enteric panel and C. difficile are negative consider Imodium if diarrhea is ongoing Generalized weakness/debility/failure to thrive -Since that family is having difficulty taking care of him in the current livingenvironment -Was recently discharged from [facility] however patient wasadamant that he didnot want to go back to the same place -? If ECF should be pursued -PT/OT/case management consultation pending COPD -Patient does have some wheezing on presentation but not hypoxic -Will utilize scheduled and as needed nebulizers -If wheezing persistent may need to consider short taper of steroids Osteoporosis -Restart alendronate at discharge -Cont home cholecalciferol Seizure disorder -Continue home carbamazepine CAD/essential hypertension/hyperlipidemia/history of stroke/PAD -Blood pressure is markedly elevated on presentation however it does not appear patient been compliant with his medications -Restart home nifedipine 90 mg daily -Restart home metoprolol 25 mg p.o. daily -restart home losartan 100 mg daily -Restart home clonidine 0.1 mg p.o. twice daily -Restart home Plavix History of atrial fibrillation -Patient is on no current treatment other than beta-joel -Monitor vital signs BPH with obstruction -continue home Flomax -Continue home finasteride GERD -continue PPI Tobacco abuse -14 mcg nicotine patch -Recommend cessation Alzheimer's type dementia -Suspect patient needs more supervision than the currently available home -Monitor for behavior abnormalities and sundowning -May need to consider adding low-dose risperidone if problematic DVT prophylaxis -Subcu Lovenox daily CODE STATUS -Full code but unverified as no one was available to have end-of-life discussionwith -Will need clarified Charges/Coding Visit Charges Inpatient E&M: 03636 Init Hosp L2 08/25/24 1900 Cosigner Signature (if applicable): CC: Dr. Daija Morton MD; Dr. Lisha Talamantes, DO~ Signed [facility]03-09-2025 Discharge summary [facility] Medical Records Department [address] [place] [address] Emergency Department Summary 08/25/24 MR#: [id number] Acct: [id number] Name: PEDRO PABLO SIERRA Rep #:[id number] : 1950 74 From: Jaden Jauregui MD PCP: Dr. Daija Morton MD Status:REG E R Location: ED HPI HPI - GI History of Present Illness Chief Complaint: Confusion Informant: patient and EMS Narrative Narrative: 74-year-old male presents with diarrhea and feeling weak. Daughter is not here but she called in the provide a little bit of extra history before the patient'sarrival, apparently he has been in a senior care [facility] when he arrived home 5 days ago, he was having diarrhea when he got home, patient stateshe was having it before he left the senior care as well, and he has been havingdiarrhea all over the daughter's trailer where he has been living, he has Alzheimer's, so he has been smoking and dropping cigarettes all over the trailer, is weak. History is limited for the patient buthe states has been drinking fluids and not having abdominal pain and not vomiting. Denies any coughor out of breath. When asked if he was on antibiotics for anything recently he does not know. When asked if he has a history of C. difficile he does not know. [facility] Medical History Compression fx, lumbar spine Hypertension Falls Hypertension Closed fracture of right superior pubic ramus Multiple falls Compression fracture of thoracic vertebra History of atrial fibrillation Iron deficiency anemia Chronic respiratory failure with hypoxia Osteoporosis Lumbar compression fracture Compression fracture Obstructive sleep apnea Hyperlipidemia Asthma Peripheral arterial occlusive disease Seizure disorder Chronic obstructive pulmonary disease Coronary artery disease Lupus anticoagulant disorder BPH (benign prostatic hyperplasia) Ulcerative colitis Peripheral vascular disease Anxiety COPD (chronic obstructive pulmonary disease) with emphysema Closed fracture of right inferior pubic ramus Acute UTI COPD (chronic obstructive pulmonary disease) UTI (urinary tract infection) Depression Diabetes Kidney stones Chronic pain Pancreatitis On home oxygen therapy Irregular heart beat Atrial fibrillation Stroke/cerebrovascular accident Smoker Falls frequently Seizures Sleep apnea COPD (chronic obstructive pulmonary disease) Asthma High cholesterol Tobacco abuse Home Medications ?Medication ?Instructions ?Recorded ?Last Taken ?Type tamsulosin 0.4 mg capsule 0.4 mg PO QHS bph 01/26/14 1 History finasteride 5 mg tablet 5 mg PO DAILY prostate 11/1403/28/23 History atorvastatin 40 mg tablet 40 mg PO QHS Cholesterol 12/0203/28/23 History mirtazapine 15 mg tablet 15 mg PO QHS anti depressant 08/16/19 03/28/23 History clopidogrel 75 mg tablet 75 mg PO DAILY blood thinner 10/25/19 03/28/23 History losartan 100 mg tablet 100 mg PO DAILY Blood pressu re 08/19/21 03/28/23 History pantoprazole 40 mg tablet,delayed 40 mg PO DAILY GERD 08/19/21 03/28/23 History release nifedipine 90 mg tablet,extended 90 mg PO DAILY blood pressure 11/25/21 03/28/23 History release alendronate 70 mg tablet 70 mg PO QWEEK #1 TAB 03/28/23 Rx metoprolol tartrate 25 mg tablet 25 mg PO DAILY Blood pressure 03/30/23 03/28/23 History sennosides 8.6 mg-docusate sodium 2 tab PO BID PRN PRN Constipation 04/04/23 Unknown Rx 50 mg tablet (Stool #0 tabs Softener-Stimulant Laxative) acetaminophen 500 mg tablet 1,000 mg (2 x 500 mg) PO Q 8 30 07/26/23 Unknown Rx days #0 tabs albuterol sulfate 90 mcg/actuation 1 puff inhalation Q 8H 08/22/23 Unknown History aerosol inhaler carbamazepine 200 mg 200 mg PO Q12H 08/22/23 Unkn own History tablet,extended release,12 hr cholecalciferol (vitamin D3) 50 50 mcg PO DAILY Unknown History mcg (2,000 unit) tablet clonidine HCl 0.1 mg tablet 0.1 mg PO BID 08/22/23 Unk nown History guaifenesin 100 mg/5 mL oral liquid 200 mg PO Q4H PRN congestion 08/22/23 Unknown History sertraline 100 mg tablet 100 mg PO DAILY 08/22/23 Unk nown History ergocalciferol (vitamin D2) 1,250 1,250 mcg PO Q7D #0 caps 04/10/24 Unknown Rx mcg (50,000 unit) capsule (Vitamin D2) Allergy/AdvReac Type Severity Reaction Status Date / Time No Known Allergies Allergy Verified 04/06/24 11:12 Family History Other Heart disease Surgical History S/P arterial stent History of appendectomy Social History household members: none Smoking Status: Current some day smoker tobacco type: cigarettes how long ago did patient quit smoking: Has not smoked in 7 weeks alcohol intake: former details: Former alcoholic quit several years ago substance use type: does not use caffeine: Yes Type: coffee Number of servings: 3 ROS ROS ED Constitutional Constitutional ED: Reports fatigue; Denies chills or fever(s) Eyes Eyes: Denies change in vision or diplopia ENT ENT ED: Denies rhinorrhea or sore throat Cardiovascular Cardiovascular: Denies chest pain or palpitations Respiratory/Chest Respiratory/Chest: Denies cough or dyspnea Gastrointestinal Gastrointestinal: Reports diarrhea; Denies abdominal pain, melena, nausea or vomiting Genitourinary Genitourinary ED: Denies dysuria or hematuria Musculoskeletal Musculoskeletal: Denies back pain or neck pain Integumentary Denies abscess or rash Neurologic Neurologic: Reports confusion; Denies abnormal speech, focal weakness, headache(s) or paresthesias Psychiatric Psychiatric: Denies suicidal thoughts EXAM Physical Exam Const Vital Signs: 08/25/24 16:12 Temperature 97.7 F L Temperature Source Temporal Positive well nourished and well developed General Appearance ED: well developed and NAD HEENT Reports moist mucous membranes normocephalic and atraumatic Eyes Eyes Narrative: Dilated right pupil with disconjugate gaze right eye. Left appears normal. Left EOMs generally intact. Neck full ROM, no lymphadenopathy and supple Resp normal respiratory effort and clear to auscultation bilaterally Cardio regular rate, regular rhythm and no murmurs Rate: Negative for tachycardic GI non-tender and non-distended Auscultation: normoactive bowel sounds Palpation: soft Back/Spine no CVA tenderness General Back: other FROM Extremity normal to inspection General Extremety ED: Negative for edema, pulses abnormal or tenderness General Extremity: Negative for edema or pulses abnormal Neuro CN's II-XII intact bilaterally and no sensory deficits noted Sensorium / Orientation: awake, alert, oriented to person and oriented to place Motor Exam: strength 5/5 throughout Psych mental status grossly normal and thought process normal Skin no rashes or lesions noted and no wounds Skin Narrative: Patient has brown diarrhea scattered about his legs, his feet, and his clothes. MDM MDM MDM Narrative Medical decision making narrative: Patient was given IV fluids, his vital signs were monitored and stable, obtainedlabs which are unremarkable, except for prerenal azotemia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 11/21/2023) No current facility-administered medications for this visit. SOCIAL HISTORY Social History Tobacco Use Smoking status: Every Day Packs/day: 0.50 Years: 55.00 Additional pack years: 0.00 Total pack years: 27.50 Types: Cigarettes Start date: 06/19/1964 Smokeless tobacco: Never Tobacco comments: patient started using patches Vaping Use Vaping Use: Never used Substance Use Topics Alcohol use: No Comment: History of alcohol abuse. I cut that out. Drug use: No REVIEW OF SYSTEMS See HPI OBJECTIVE: BP 200/94 Pulse 60 Resp 16 Wt 68.5 kg (151 lb) SpO2 92% BMI 22.96 kg/m APPEARANCE Well appearing, alert, in no acute distress, well-hydrated, well nourished. NOSE/SINUS Nares normal. Septum midline. Mucosa normal. No drainage or sinus tenderness. THROAT normal, no erythema NECK Supple, no adenopathy HEART RRR with normal S1 and S2, LUNG slightly diminished COREY with coarse breath sounds COREY. No rhonchi, No wheezing. ASSESSMENT/PLAN: 1. COPD with chronic bronchitis (HCC) - ICD9: 491.20, ICD10: J44.89 (primary diagnosis) Recommend consult to pulmonary Reviewed red flags and when to seek care sooner. a - BUDESONIDE 0.5 MG/2 ML SUSPENSION FOR NEBULIZATION - CONSULT TO PULMONARY MEDICINE - ALBUTEROL SULFATE 2.5 MG/3 ML (0.083 %) SOLUTION FOR NEBULIZATION - COMPLETE BLOOD COUNT AND DIFFERENTIAL 2. Other emphysema (HCC) - ICD9: 492.8, ICD10: J43.8 As above - IPRATROPIUM 0.5 MG-ALBUTEROL 3 MG (2.5 MG BASE)/3 ML NEBULIZATION SOLN - CONSULT TO PULMONARY MEDICINE - ALBUTEROL SULFATE 2.5 MG/3 ML (0.083 %) SOLUTION FOR NEBULIZATION 3. Chronic sore throat - ICD9: 472.1, ICD10: J31.2 Recommend evaluation with ENT with smoking history - CONSULT TO ENT 4. Smoking - ICD9: 305.1, ICD10: F17.200 - Cessation encouraged. - Physiologic and physical aspects of tobacco addiction as well as strategies for quitting were discussed. - Counseling was given focusing on the harmful effects of this addiction especially given the patient's medical condition(s) which will be worsened because of the chemicals in tobacco. - CONSULT TO ENT 5. Closed nondisplaced fracture of pelvis with routine healing, unspecified part of pelvis, subsequent encounter - ICD9: V54.19, ICD10: S32.9XXD - SEAT LIFT MECHANISM COMBL - URINAL, MALE, JUG TYPE - RAISED TOILET SEAT - COMMODE CHAIR, STATIONARY - ULTRA-LIGHT ROLLATOR MISC 6. Mixed hyperlipidemia - ICD9: 272.2, ICD10: E78.2 - Control undetermined, due for labs - Counseled on healthy diet and regular exercise - HEMOGLOBIN A1C - LIPID PANEL BASIC - COMPREHENSIVE METABOLIC PANEL The patient indicates understanding of these issues and agrees with the plan. Reviewed red flags and when to seek care sooner. F/u in 4-6 weeks for recheck with PCP, sooner if needed. 7. Hypertension, unspecified type - ICD9: 401.9, ICD10: I10 Uncontrolled-patient did not take his medication today Advise take medication, repeat BP and call with results tomorrow Reviewed red flags and when to seek care sooner and when to seek care in the ED. - Recommend home blood pressure monitoring, to bring results to next visit - Encouraged sodium restriction, DASH or Mediterranean diet - Recommend regular aerobic exercise The patient indicates understanding of these issues and agrees with the plan. Rebekah Luu PA-C documented in this encounterMer[facility]06-[facility]24 Telephone encounter Note * Telephone Encounter - Nani Webb LPN - 11/20/2023 2:31 PM EDT Michelle, daughter of pt called in to request he following: *lift chair *urinal container *toilet seat riser *bedside commode *Rolator Daughter reports pt is having loose stools 4 to 5 per day and she has been giving pt Imodium and this is helping. Pt has apt 6-4-24 and all above will be discussed. I have asked th daughter to have the DME companypt will use for above. Nani Webb LPN [facility]06-03-2024 Miscellaneous Notes* Telephone Encounter - Nani Webb LPN - 11/20/2023 2:31 PM EDT Michelle, daughter of pt called in to request he following: *lift chair *urinal container *toilet seat riser *bedside commode *Rolator Daughter reports pt is having loose stools 4 to 5 per day and she has been giving pt Imodium and this is helping. Pt has apt 6-4-24 and all above will be discussed. I have asked th daughter to have the DME companypt will use for above. Nani Webb LPN documented in this encounterMer[facility]06-03-2024 Telephone encounter Note * Telephone Encounter - Josefa Vidal RN - 11/20/2023 9:02 AM EDT Please see phone notes from 11/08 and 11/14. Both calls were from a [facility] asking if provider would follow for orders. Lynnette from [facility] calling again today asking if someone wouldfollow for retirement. Unsure why her facility is calling as per 11/08 and 11/14 phone notes, [facility] was going to be seeing pt. Called [facility] to see if they are still planning on seeing pt. Per staff member there, they were not going to have a nurse until November 26 so SS was going to find another HH agency. [facility] must be the new agency that will provide retirement for pt. Called Lynnette back at [phone] to notify of this. Since agreement was given on both 11/08 by Anjel Braga that she would follow and on 11/14 per Fariba Luu saying Dr. Morton will follow. Okay given to Lynnette that Anjel Braga would follow as she had given her okay to follow on 11/08. [facility]06-03-[facility]24 Miscellaneous Notes* Telephone Encounter - Josefa Vidal RN - 11/20/2023 9:02 AM EDT Please see phone notes from 11/08 and 11/14. Both calls were from a [facility] asking if provider would follow for orders. Lynnette from [facility] calling again today asking if someone wouldfollow for retirement. Unsure why her facility is calling as per 11/08 and 11/14 phone notes, [facility] was going to be seeing pt. Called [facility] to see if they are still planning on seeing pt. Per staff member there, they were not going to have a nurse until November 26 so SS was going to find another HH agency. [facility] must be the new agency that will provide retirement for pt. Called Lynnette back at [phone] to notify of this. Since agreement was given on both 11/08 by Anjel Braga that she would follow and on 11/14 per Fariba Luu saying Dr. Morton will follow. Okay given to Lynnette that Anjel Braga would follow as she had given her okay to follow on 11/08. * Telephone Encounter - Jacquie Barnes - 11/17/2023 2:08 PM EDT Lynnette from [facility] called asking if Nevaeh Luu would follow retirement orders Lynnette can be reached at [phone] patient does have appointment on 11/20 Please advise documented in this encounterMer[facility]05-31-2024 Telephone encounter Note * Telephone Encounter - Jacquie Barnes - 11/17/2023 2:08 PM EDT Lynnette from [facility] called asking if Nevaeh Luu would follow retirement orders Lynnette can be reached at [phone] patient does have appointment on 11/20 Please advise [facility] Work Phone: 1(409) 689-195205-30-2024 Telephone encounter Note* Telephone Encounter - Kaye Manley LPN - 11/16/2023 3:35 PM EDT Spoke with Magno gave information provided. Pt voices understanding. [facility]05-30-[facility]24 Miscellaneous Notes* Telephone Encounter - Kaye Manley LPN - 11/16/2023 3:35 PM EDT Spoke with Magno gave information provided. Pt voices understanding. * Telephone Encounter - Rebekah Luu PA-C - 11/16/2023 2:40 PM EDT PCP-Dr. Morton can follow patient. Rebekah Luu PA-C * Telephone Encounter - Erika-Pina Toscano LPN - 11/15/2023 2:13 PM EDT Magno from [facility] asking if you will follow? Please advise. documented in this encounterMer[facility]05-30-2024 Telephone encounter Note * Telephone Encounter - Rebekah Luu PA-C - 11/16/2023 2:40 PM EDT PCP-Dr. Morton can follow patient. Rebekah Luu PA-C [facility] Work Phone: 1(413) 351-568705-29-2024 Telephone encounter Note* Telephone Encounter - Pina Shah LPN - 11/15/2023 2:13 PM EDT Magno from [facility] asking if you will follow? Please advise. [facility] Work Phone: 1(313) 382-410005-23-2024 Telephone encounter Note* Telephone Encounter - Berta Zazueta MA - 11/09/2023 1:41 PM EDT No name or return number was given. Was able to locate number online and information given to intake nurse. [facility]05-23-2024 Miscellaneous Notes* Telephone Encounter - Berta Zazueta MA - 11/09/2023 1:41 PM EDT No name or return number was given. Was able to locate number online and information given to intake nurse. * Telephone Encounter - Anjel Braga APRN.CNP - 11/09/2023 12:52 PM EDT Provider agrees to follow at this time. Anjel Braga APRN.CNP * Telephone Encounter - Jacquie Barnes - 11/09/2023 11:17 AM EDT [facility] called asking if provider or DANCE STUDIO MANAGER would be willing to follow for on going home care orders (Patient being discharged from [facility]) Please advise documented in this encounterMercy [facility]05-23-2024 Telephone encounter Note * Telephone Encounter - Anjel Braga APRN.CNP - 11/09/2023 12:52 PM EDT Provider agrees to follow at this time. Anjel Braga APRN.CNP [facility]05-23-2024 Telephone encounter Note* Telephone Encounter - Jacquie Barnes - 11/09/2023 11:17 AM EDT [facility] called asking if provider or DANCE STUDIO MANAGER would be willing to follow for on going home care orders (Patient being discharged from [facility]) Please advise [facility] Work Phone: 1(724) 998-371605-02-2024 Telephone encounter Note* Telephone Encounter - Harriett Albert APRN.CNS - 10/19/2023 4:49 PM EDT Noted [facility]05-02-2024 Miscellaneous Notes* Telephone Encounter - Harriett Albert APRN.CNS - 10/19/2023 4:49 PM EDT Noted * Telephone Encounter - Nani Webb LPN - 10/19/2023 4:17 PM EDT FYI: Lit client care manager with [facility] calling to let you know pt is now approved for MyCare Waiver. Pt will be receiving [employer] Waiver. Pt is still in senior care [facility]. Nani Webb LPN documented in this encounterMer[facility]05-02-2024 Telephone encounter Note * Telephone Encounter - Nani Webb LPN - 10/19/2023 4:17 PM EDT FYI: Lit client care manager with [facility] calling to let you know pt is now approved for MyCare Waiver. Pt will be receiving [employer] Waiver. Pt is still in senior care [facility]. Nani Webb LPN [facility]03-04-2024 History of Present illness Narrative* Lisa Farley MA - 08/21/2023 10:47 AM EST POPULATION HEALTH NAVIGATION OUTREACH Action/FYI LM for pt to call to schedule follow up, hcc gap closure, bp Reason for Outreach Care Gap/HCC or Scheduling Wellness Visits Care Gaps due: Follow-up Appointment Controlling Blood Pressure Patient Contacted: Unable to reach patient: Left message Navigation Signature: Lisa Farley MA August 21, 2023 10:47 AM documented in this encounterMercy Health [facility]02-19-2024 Miscellaneous Notes* Telephone Encounter - Rosaura Bartlett LPN - 08/07/2023 10:28 AM EST Patient has been identified by name and date of : No Patient phones for refill(s): Requested Prescriptions Pending Prescriptions Disp Refills sertraline (ZOLOFT) 100 mg tablet 30 tablet 11 Sig: Take 1 tablet by mouth once daily. Date of last office visit in primary care: 06/08/2023 Date of next office visit in primary care: Visit date not found Please advise. Thank you. Rosaura Bartlett LPN. * Telephone Encounter - Emilie Chase - 08/04/2023 2:29 PM EST Pharmacy verified in Epic Patient has been identified by name and date of : Yes Patient aware RX will be sent to pharmacy. No need to notify patient. Pharmacy phones for refill(s): Requested Prescriptions Pending Prescriptions Disp Refills sertraline (ZOLOFT) 100 mg tablet 30 tablet 11 Sig: Take 1 tablet by mouth once daily. Date of last office visit : 06/08/2023 Date of next office visit : Visit date not found Last 2 Encounter Wt Readings: Date: Wt: 06/08/2023 69.4 kg (153 lb) 08/27/2022 71.2 kg (157 lb) Please advise. Emilie Richmond Pss documented in this encounterMercy [facility]02-14-2024 Discharge summary Author Ryan Guerin [facility] August 02, 2023 4:20pm Note Date/Time August 02, 2023 4:00pm [facility] Medical Records Department [address] [place] [id number] Transfer to [facility] MR#: [id number] Acct: [id number] Name: PEDRO PABLO SIERRA Rep #:[id number] : 1950 73 From: Ryan Guerin DO PCP: Dr. Daija Morton MD Status:ADM I N Certification of patient admission REQUIRED AT TIME OF ADMISSION. I CERTIFY THAT [facility] ARE REQUIRED TO BE GIVEN ON AN IN-PATIENT BASIS BECAUSE OF THE ABOVE NAMED PATIENT'S NEED FOR RESIDENTIAL CARE ON A CONTINUING BASIS FOR THE CONDITION(S) FOR WHICH HE/SHE WAS RECEIVING IN-PATIENT HOSPITAL SERVICES PRIOR TO HIS/HER TRANSFER TO THE [facility]. 08/02/23 1620<Electronically signed by Ryan Guerin DO> Diet Diet Order/Speech Therapy: 07/31/23 16:57 Diet: Regular - General Is pt able to select menu?: Yes Routine Orders/Code Status O2 Liters per Minute: 2 O2 Frequency: Continuous Code Status: Full Code Wound(s) Left Elbow: Wound Type: Scab Therapies Weight Bearing: Full weight bearing Problem/Diagnosis (1) COPD with acute exacerbation: Status: Chronic Code(s): J44.1 - Chronic obstructive pulmonary disease with (acute) exacerbation (2) Closed fracture of right inferior pubic ramus: Status: Acute Code(s): S32.591A - Other specified fracture of right pubis, initial encounter for closedfracture Plan 1. Acute exacerbation of COPD-patient is currently on 2 L of oxygen via nasal cannula, continue aerosol treatments and Solu-Medrol #2 influenza A-patient is on Tamiflu #3 acute metabolic encephalopathy-etiology unclear, this is currently resolved #4 recent pelvic fracture-patient will be given oral narcotics for pain, he willbe seen by PT and OT #5 chronic hypoxic respiratory failure-patient is on O2 at his nursing facility presently #6 uncontrolled hypertension-patient's blood pressure has improved today on his oral medications, it will continue to be monitored Total clinical time spent by myself addressing patient's medical issues, reviewing all of his data, and collaborating with patient's care team: 25 minutes Allergies/Procedures Done in Hospital Allergies No Known Allergies Allergy (Verified 07/24/23 16:43) Procedures: None Type of Care/Length of Stay Estimated LOS: Convalescent Care Less Than 30 days Type of Care Needed: Skilled Rehab Potential: Good Prognosis: Good Additional Orders/Day of Discharge H&P will serve as current which was dated: 07/30/23 Day of Discharge: 08/02/23 Dietary and Speech Recommendations Dietitian Recommendations/Changes: As medically able, rec SANTOS to Cardiac / Consistent CHO - consistency per SWING TYPE LATHE OPERATOR. Monitor need for po supplement pending po intake/wts and order if indicated Discharge Plan Admission Admit Date/Time: 07/30/23 23:48 Primary Reason for Your Visit: COPD exacerbation, influenza A Attending Provider: Ryan Guerin Primary Care Provider: Daija Morton Consulting Providers: Brody Maynard Discharge Orders/Prescriptions Prescriptions: New guaifenesin [Mucus Relief ER] 1,200 mg Tablet Extended Release 12hr 1,200 mg PO BID Qty: 0 0RF dextromethorphan-guaifenesin 10-100 mg/5 mL Syrup 10 ml PO Q6H PRN PRN (Reason: COUGH) Qty: 0 0RF oseltamivir 75 mg Capsule 75 mg PO BID Qty: 0 0RF Rx Instructions: Continue for seven doses, then discontinue hydrochlorothiazide 12.5 mg Capsule 12.5 mg PO DAILY Qty: 0 0RF oxycodone 5 mg Tablet 5 - 10 mg PO Q4H PRN PRN (Reason: Pain Score 6-10) 2 Days Qty: 10 0RF Continued tamsulosin 0.4 MG capsule 0.4 mg PO QHS Patient Comments: Prostate and urine finasteride 5 MG tablet 5 mg PO DAILY Patient Comments: prostate atorvastatin 40 MG tablet 40 mg PO QHS Patient Comments: CHOLESTEROL mirtazapine 15 MG tablet 15 mg PO QHS clopidogrel 75 MG tablet 75 mg PO DAILY carbamazepine 200 MG tablet 200 mg PO Q12H Patient Comments: face pain losartan 100 mg tablet 100 mg PO DAILY pantoprazole 40 mg tablet,delayed release (DR/EC) 40 mg PO DAILY nifedipine 90 mg tablet extended release 90 mg PO DAILY alendronate 70 mg tablet 70 mg PO QWEEK Qty: 1 0RF metoprolol tartrate 25 mg tablet 25 mg PO DAILY sennosides-docusate sodium [Stool Softener-Stimulant Laxat] 8.6-50 mg Tablet 2 tab PO BID PRN PRN (Reason: Constipation) Qty: 0 0RF acetaminophen 500 mg Tablet 1,000 mg PO Q8 30 Days Qty: 0 0RF Discontinued nicotine 21 mg/24 hr Patch 24 Hour 21 mg transdermal DAILY Qty: 0 0RF albuterol sulfate 90 mcg/actuation HFA aerosol inhaler 1 puff INHALATION Q8H oxycodone 5 mg Tablet 5 mg PO Q4H PRN PRN (Reason: Pain Score 4-10) 7 Days Qty: 42 0RF Referrals / Follow Up: Daija Morton MD [Primary Care Provider] - Disposition Disposition (needs filled in before D/C Order can be placed): [facility] 08/02/23 1620 <Electronically signed by Ryan Guerin DO> Cosigner Signature (if applicable): CC: Dr. Daija Morton MD; Dr. Brody Maynard MD ~ [facility] Work Phone: 1(443) 798-941002-13-2024 Progress note Author Ryan Guerin [facility] August 01, 2023 3:34pm Note Date/Time August 01, 2023 3:34pm [facility] Medical Records Department [address] [place] [address] Progress Note - Hospitalist 08/01/23 1531 MR#: [id number] Acct: [id number] Name: PEDRO PABLO SIERRA Rep #:[id number] : 1950 73 From: Ryan Guerin DO PCP: Dr. Daija Morton MD Status:ADM I N Location: ICU ICU05-1 Reason for Visit Reason for Visit: Diagnoses Metabolic encephalopathy (07/30/23) Influenza due to other identified influenza virus with other respiratory manifestations (07/30/23) Chronic obstructive pulmonary disease with (acute) exacerbation (07/30/23) Subjective Subjective Patient was seen and examined today, he is alert and appropriate, he does not appear agitated. I have learned from discharge planning that the patient will need precertification to return to his retirement facility. Objective Data Objective Data Vital Signs: Vital Signs Temp Pulse Resp BP Pulse Ox O2 Del Method O2 Flow Rate 98.3 F 86 21 H 145/66 H 96 Nasal Cannula 2 08/01/23 14:07 08/01/23 15:29 08/01/23 15:29 08/01/23 14:07 08/01/23 14:07 08/01/23 14:21 08/01/23 15:17 Oxygen Flow Rate (L/min) 2 Oxygen Delivery Method Nasal Cannula Weight: 67.1 kg Body Mass Index (BMI) 22.4 Intake & Output: Intake and Output for Last 24 Hours 07/30/23 07/31/23 08/01/23 23:59 23:59 23:59 Intake Total 1000 / 1000 Output Total 1225 / 1625 1250 / 1250 Balance 1000 / 1000 -1225 / -1625 -1250 / -1250 Lab / Micro Data 07/31/23 05:15 02/12/24 05:15 Micro: Microbiology 07/30/23 21:12 Mucosa - Nose SARS-CoV-2, Influenza & RSV (PCR) - Final Influenzae A Physical Exam Narrative alert, no apparent distress and average body habitus General Appearance: cooperative, well kempt and well developed Orientation / Consciousness: awake, oriented to person and oriented to place HEENT normocephalic, head/scalp atraumatic and moist oral mucous membranes Eyes PERRL, EOMs intact bilaterally and conjunctivae normal Neck supple, no JVD, thyroid normal and no carotid bruits General: trachea midline Resp normal respiratory effort, no retractions and no use of accessory muscles Resp Narrative: Patient has mild expiratory wheezes bilaterally Auscultation: wheezes expiratory wheezes; Negative for rales or rhonchi Cardio regular rate, regular rhythm, S1 normal heart sound, S2 normal heart sound, no murmurs, no rub and no gallops GI normal to inspection, nondistended, normoactive bowel sounds, soft to palpation,non-tender and non-distended Extremity no clubbing, cyanosis or edema Skin no rashes or lesions noted General Skin Exam: no breakdown Neuro CN's II-XII intact bilaterally, moves all extremities, no focal motor deficits and no sensory deficits noted Sensorium / Orientation: awake, alert, oriented to person and oriented to place Speech: speech normal Psych affect normal Assessment & Plan Assessment/Plan (1) COPD with acute exacerbation: PLAN: Plan 1. Acute exacerbation of COPD-patient is currently on 2 L of oxygen via nasal cannula, continue aerosol treatments and Solu-Medrol #2 influenza A-patient is on Tamiflu #3 acute metabolic encephalopathy-etiology unclear, this is currently resolved #4 recent pelvic fracture-patient will be given oral narcotics for pain, he willbe seen by PT and OT #5 chronic hypoxic respiratory failure-patient is on O2 at his nursing facility presently #6 uncontrolled hypertension-patient's blood pressure has improved today on his oral medications, it will continue to be monitored Total clinical time spent by myself addressing patient's medical issues, reviewing all of his data, and collaborating with patient's care team: 25 minutes Charges/Coding Visit Charges Inpatient E&M: 42279 Subs Hosp L1 08/01/23 9569 <Electronically signed by Ryan Guerin DO> Cosigner Signature (if applicable): CC: ~ Signed [facility] Work Phone: 1(823) 338-875502-12-2024 Progress note Author Ryan Guerin [facility] July 31, 2023 5:02pm Note Date/Time July 31, 2023 4:57pm [facility] Medical Records Department [address] [place] [address] Progress Note - Hospitalist 07/31/23 1650 MR#: [id number] Acct: [id number] Name: PEDRO PABLO SIERRA Rep #:[id number] : 1950 73 From: Ryan Guerin DO PCP: Dr. Daija Morton MD Status:ADM I N Location: ICU ICU-1 Reason for Visit Reason for Visit: Diagnoses Metabolic encephalopathy (07/30/23) Influenza due to other identified influenza virus with other respiratory manifestations (07/30/23) Chronic obstructive pulmonary disease with (acute) exacerbation (07/30/23) Subjective Subjective Patient was seen and examined today, this afternoon he is alert and appropriate and is able to take orals. Objective Data Objective Data Vital Signs: Vital Signs Temp Pulse Resp BP Pulse Ox O2 Del Method O2 Flow Rate 98.8 F 92 24 H 189/84 H 93 Nasal Cannula 2 07/31/23 12:00 07/31/23 16:00 07/31/23 16:00 07/31/23 16:00 07/31/23 16:00 07/31/23 16:00 07/31/23 16:00 Oxygen Flow Rate (L/min) 2 Oxygen Delivery Method Nasal Cannula Weight: 67.1 kg Body Mass Index (BMI) 22.4 Intake & Output: Intake and Output for Last 24 Hours 07/29/23 07/30/23 07/31/23 23:59 23:59 23:59 Intake Total 1000 / 1000 Output Total 1025 / 1025 Balance 1000 / 1000 -1025 / -1025 Lab / Micro Data 07/31/23 05:15 07/31/23 05:15 Labs: Laboratory Results - last 24 hr 07/30/23 20:51: WBC 5.5, RBC 4.07 L, Hgb 13.3, Hct 40.4, MCV 99.3 H, MCH 32.7 H,MCHC 32.9, RDW Std Deviation 48.3 H, RDW Coeff of Aly 13.2, Plt Count 262, MPV 9.4, Immature Gran % (Auto) 0.500, Neut % (Auto) 76.5 H, Lymph % (Auto) 10.9 L, Phelps % (Auto) 10.7 H, Eos % (Auto) 0.5, Baso % (Auto) 0.9, Absolute Neuts (auto)4.2, Absolute Lymphs (auto) 0.60 L, Nucleated RBC % 0, Sodium 138, Potassium 4.2, Chloride 102, Carbon Dioxide 29.0, Anion Gap 7, BUN 26 H, Creatinine 1.14, Estim Creat Clear Calc 55.00, Est GFR (MDRD) Af Amer 81, Est GFR (MDRD) Non-Af 67, BUN/Creatinine Ratio 22.8 H, Glucose 114 H, Calcium 9.2, Troponin I High Sens 15, B-Natriuretic Peptide 218.8 H 07/30/23 21:55: Urine Color Yellow, Urine Clarity Clear, Urine pH 7.0, Ur Specific Olema 1.010, Urine Protein 30 H, Urine Glucose (UA) Normal, Urine Ketones Negative, Urine Occult Blood 10 H, Urine Nitrite Negative, Urine Bilirubin Negative, Urine Urobilinogen Normal, Ur Leukocyte Esterase Negative, Urine RBC 0 SEEN, Urine WBC 0 SEEN, Ur Squamous Epith Cells 0 SEEN, Urine Bacteria 0 SEEN, Urine Mucus 0 SEEN 07/31/23 05:15: WBC 5.5, RBC 3.85 L, Hgb 12.6 L, Hct 37.9 L, MCV 98.4 H, MCH 32.7 H, MCHC 33.2, RDW Std Deviation 47.2 H, RDW Coeff of Aly 13.2, Plt Count 284, MPV 10.1, Immature Gran % (Auto) 0.400, Neut % (Auto) 85.0 H, Lymph % (Auto) 7.1 L, Phelps % (Auto) 7.1, Eos % (Auto) 0.0, Baso % (Auto) 0.4, Absolute Neuts (auto) 4.7, Absolute Lymphs (auto) 0.39 L, Nucleated RBC % 0, Sodium 139, Potassium 4.0, Chloride 102, Carbon Dioxide 29.0, Anion Gap 8, BUN 23 H, Creatinine 1.01, Estim Creat Clear Calc 60.90, Est GFR (MDRD) Af Amer 93, Est GFR (MDRD) Non-Af 77, BUN/Creatinine Ratio 22.8 H, Glucose 113 H, Calcium 8.6 Micro: Microbiology 07/30/23 21:12 Mucosa - Nose SARS-CoV-2, Influenza & RSV (PCR) - Final Influenzae A ABG Data ABG results: ABG 07/30/23 21:22 Specimen Type LASHAE Sample Site Not entered O2 % 3.0 VBG pH 7.36 VBG pO2 38 VBG HCO3 28 H VBG Total CO2 29 VBG O2 Sat (Calc) 69 VBG Base Excess 2 POC Mix VBG pCO2 Pt Tmp 48.6 O2 Delivery Device Cannula Radiography Diagnostic Testing: Radiology Impression Brain CT 07/30/23 20:58 IMPRESSION: Age-related changes of the brain. Electronically Signed: Mario Cramer DO at 21:46 EST , Chest X-Ray 07/30/23 20:58 IMPRESSION: No radiographic evidence of acute cardiopulmonary disease. Electronically Signed: Mario Cramer DO at 21:10 EST , Physical Exam Const alert, no apparent distress and average body habitus General Appearance: cooperative, well kempt and well developed Orientation / Consciousness: awake, oriented to person and oriented to place HEENT normocephalic, head/scalp atraumatic and moist oral mucous membranes Eyes PERRL, EOMs intact bilaterally and conjunctivae normal Neck supple, no JVD, thyroid normal and no carotid bruits General: trachea midline Resp normal respiratory effort, no retractions and no use of accessory muscles Resp Narrative: Patient has mild expiratory wheezes bilaterally Auscultation: wheezes expiratory wheezes; Negative for rales or rhonchi Cardio regular rate, regular rhythm, S1 normal heart sound, S2 normal heart sound, no murmurs, no rub and no gallops GI normal to inspection, nondistended, normoactive bowel sounds, soft to palpation,non-tender and non-distended Extremity no clubbing, cyanosis or edema Skin no rashes or lesions noted General Skin Exam: no breakdown Neuro CN's II-XII intact bilaterally, moves all extremities, no focal motor deficits and no sensory deficits noted Sensorium / Orientation: awake, alert, oriented to person and oriented to place Speech: speech normal Psych affect normal Assessment & Plan Assessment/Plan (1) COPD with acute exacerbation: PLAN: Plan 1. Acute exacerbation of COPD-patient is currently on 2 L of oxygen via nasal cannula, continue aerosol treatments and Solu-Medrol #2 influenza A-patient is on Tamiflu #3 acute metabolic encephalopathy-etiology unclear, provide supportive care #4 recent pelvic fracture-patient will be given oral narcotics for pain, he willbe seen by PT and OT #5 chronic hypoxic respiratory failure-patient is on O2 at his nursing facility presently #6 uncontrolled hypertension-patient will be placed back on his oral medicationsfor blood pressure Total clinical time spent by myself addressing patient's medical issues, reviewing all of his data, and collaborating with patient's care team: 35 minutes Charges/Coding Visit Charges Inpatient E&M: 31502 Subs Hosp L2 07/31/23 1702 <Electronically signed by Ryan Guerin DO> Cosigner Signature (if applicable): CC: ~ Signed [facility] Work Phone: 1(672) 663-359602-12-2024 History and physical note Author Brody Maynard [facility] July 31, 2023 1:01am Note Date/Time July 30, 2023 11:50pm [facility] Medical Records Department [address] [place] [id number] H&P Exam - Hospitalist 07/30/23 2347 MR#: [id number] Acct: [id number] Name: PEDRO PABLO SIERRA Rep #:[id number] : 1950 73 From: Brody Damon PCP: Dr. Daija Morton MD Status:ADM I N Location: ICU ICU05-1 HPI - General General Date of Admission: 07/30/23 Date of Service: 07/30/23 Chief Complaint: Shortness of breath and wheezing for about 4 days. Confused and disoriented. HPI Narrative PEDRO PABLO SIERRA, is a 73 M with history of COPD on 3 to 5 L of oxygen from [facility] came to ED for shortness of breath along with wheezing and cough. FDC, patient was febrile. Patient was found tachypneic and short of breath. He is confused, agitated and trying to pull outIV line and monitor wires therefore complete history unobtainable. Patient could not give chronological orders of his symptoms and timeline. Denies any chest pain but might have congestion. In ED, he was found to have high blood pressure 178/101, tachypneic. One-time blood pressure also recorded 233/90. Patient found to have flu positive. Patient was given Solu-Medrol, Tamiflu, DuoNeb nebulization in ED along with hydralazine 20 mg IV. Patient is further admitted [facility] Medical History Asthma Atrial fibrillation Chronic pain COPD (chronic obstructive pulmonary disease) COPD (chronic obstructive pulmonary disease) Depression Diabetes Falls frequently High cholesterol Hypertension Irregular heart beat Kidney stones On home oxygen therapy Pancreatitis Seizures Sleep apnea Smoker Stroke/cerebrovascular accident Home Medications tamsulosin 0.4 mg capsule 0.4 mg PO QHS bph 01/26/14 [History Last Taken 03/28/23] finasteride 5 mg tablet 5 mg PO DAILY prostate 11/14/14 [History Last Taken 03/28/23] atorvastatin 40 mg tablet 40 mg PO QHS Cholesterol 09/23/15 [History Last Taken 03/28/23] mirtazapine 15 mg tablet 15 mg PO QHS anti depressant 08/16/19 [History Last Taken 03/28/23] clopidogrel 75 mg tablet 75 mg PO DAILY blood thinner 10/25/19 [History Last Taken 03/28/23] carbamazepine 200 mg tablet 200 mg PO Q12H Check with primary doctor 10/26/19 [History Last Taken 03/28/23] losartan 100 mg tablet 100 mg PO DAILY Blood pressure 08/19/21 [History Last Taken 03/28/23] pantoprazole 40 mg tablet,delayed release 40 mg PO DAILY GERD 08/19/21 [History Last Taken 03/28/23] nifedipine 90 mg tablet,extended release 90 mg PO DAILY blood pressure 11/25/21 [History Last Taken 03/28/23] alendronate 70 mg tablet 70 mg PO QWEEK #1 TAB 11/30/21 [Rx Last Taken 03/28/23] nicotine 21 mg/24 hr daily transdermal patch 21 mg transdermal DAILY #0 ea 11/30/21 [Rx Last Taken 03/28/23] albuterol sulfate 90 mcg/actuation aerosol inhaler 1 puff inhalation Q8H breathing 03/30/23 [History Last Taken 03/28/23] metoprolol tartrate 25 mg tablet 25 mg PO DAILY Blood pressure 03/30/23 [History Last Taken 03/28/23] sennosides 8.6 mg-docusate sodium 50 mg tablet (Stool Softener-Stimulant Laxative) 2 tab PO BID PRN PRN Constipation #0 tabs 04/04/23 [Rx Last Taken Unknown] acetaminophen 500 mg tablet 1,000 mg (2 x 500 mg) PO Q8 30 days #0 tabs 07/26/23[Rx Last Taken Unknown] oxycodone 5 mg tablet 5 mg PO Q4H PRN PRN Pain Score 4-10 7 days #42 tabs 07/26/23 [Rx Last Taken Unknown] Allergy/AdvReac Type Severity Reaction Status Date / Time No Known Allergies Allergy Verified 07/24/23 16:43 Family History Other Heart disease Surgical History History of appendectomy S/P arterial stent Social History household members: none Smoking Status: Current every day smoker tobacco type: cigarettes alcohol intake: former details: Former 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 ROS Narrative 14 system ROS unobtainable as patient is very confused and disoriented, agitated. In delirium Review of Systems ROS Unobtainable: due to encephalopathy and due to mental condition Vital Signs Vital Signs Vital Signs: 07/30/23 20:30 07/30/23 20:33 07/30/23 20:34 Temperature 99 F 99 F 99 F Temperature Source Temporal Temporal Temporal Pulse Rate 86 88 88 Respiratory Rate 35 H 33 H 30 H Respiratory Effort Respiratory Depth Respiratory Pattern Blood Pressure 178/101 H 178/101 H 178/101 H Blood Pressure Mean 126 126 126 Pulse Ox 95 95 95 Oxygen Delivery Method Nasal Cannula Nasal Cannula Nasal Cannula Oxygen Flow Rate (L/min) 3 3 3 07/30/23 20:36 07/30/23 20:56 07/30/23 21:15 Temperature Temperature Source Pulse Rate 90 Respiratory Rate 27 H Respiratory Effort Short of Breath Labored Respiratory Depth Normal Respiratory Pattern Tachypnea Blood Pressure 219/80 H Blood Pressure Mean 126 Pulse Ox 95 Oxygen Delivery Method Nasal Cannula Nasal Cannula Nasal Cannula Oxygen Flow Rate (L/min) 3 3 3 07/30/23 21:05 07/30/23 21:51 07/30/23 22:08 Temperature 99.7 F H Temperature Source Temporal Pulse Rate 95 101 H 96 Respiratory Rate 28 H 33 H 36 H Respiratory Effort Respiratory Depth Respiratory Pattern Tachypnea Tachypnea Blood Pressure 218/87 H Blood Pressure Mean 130 Pulse Ox 91 Oxygen Delivery Method Nasal Cannula Oxygen Flow Rate (L/min) 3 07/30/23 22:24 07/30/23 23:00 07/30/23 23:25 Temperature 99 F 99.4 F H 99 F Temperature Source Temporal Temporal Temporal Pulse Rate 101 H 96 102 H Respiratory Rate 30 H 36 H 33 H Respiratory Effort Respiratory Depth Respiratory Pattern Blood Pressure 233/90 H 219/85 H 219/85 H Blood Pressure Mean 137 129 129 Pulse Ox 94 84 100 Oxygen Delivery Method Nasal Cannula Room Air Nasal Cannula Oxygen Flow Rate (L/min) 3 3 Weight Weight: 159 lb 6.307 oz Body Mass Index (BMI) 24.2 Physical Exam Narrative General: Awake, hyperactive, disoriented to time place and person. HEENT: Atraumatic, PERRLA, EOMI, Normocephalic Oral: Oral mucosa dry. No Gingival or Mucosal Lesions/ Ulcerations Neck: Supple, No JVD, Negative Carotid Bruits Chest wall/Lungs: Air entry severely diminished in all lung batres. Tachypneic, bilateral wheezing. Cardiovascular: Regular rate, Regular Rhythm, Normal S1, Normal S2, No M/G/R Abdomen: Bowel Sounds Present, Soft, Non Tender, Non-Distended : No dysuria. No renal angle tenderness. No suprapubic tenderness. Extremities: No edema, Capillary Refill Less than 3 Seconds Skin: No rashes, No breakdown Musculoskeletal: No Tenderness to Palpation of Joints or Extremities Neurological: Cranial nerves II-XII grossly intact, DTR 2+/4. No acute focal neurological deficit. Psych/Mental Status: Inattention, disoriented, hyperactive agitated, delirium. Results Lab / Micro Data 07/30/23 20:51 07/30/23 20:51 Labs: Laboratory Results - last 24 hr 07/30/23 20:51: WBC 5.5, RBC 4.07 L, Hgb 13.3, Hct 40.4, MCV 99.3 H, MCH 32.7 H,MCHC 32.9, RDW Std Deviation 48.3 H, RDW Coeff of Aly 13.2, Plt Count 262, MPV 9.4, Immature Gran % (Auto) 0.500, Neut % (Auto) 76.5 H, Lymph % (Auto) 10.9 L, Phelps % (Auto) 10.7 H, Eos % (Auto) 0.5, Baso % (Auto) 0.9, Absolute Neuts (auto)4.2, Absolute Lymphs (auto) 0.60 L, Nucleated RBC % 0, Sodium 138, Potassium 4.2, Chloride 102, Carbon Dioxide 29.0, Anion Gap 7, BUN 26 H, Creatinine 1.14, Estim Creat Clear Calc 55.00, Est GFR (MDRD) Af Amer 81, Est GFR (MDRD) Non-Af 67, BUN/Creatinine Ratio 22.8 H, Glucose 114 H, Calcium 9.2, Troponin I High Sens 15, B-Natriuretic Peptide 218.8 H 07/30/23 21:55: Urine Color Yellow, Urine Clarity Clear, Urine pH 7.0, Ur Specific [place] 1.010, Urine Protein 30 H, Urine Glucose (UA) Normal, Urine Ketones Negative, Urine Occult Blood 10 H, Urine Nitrite Negative, Urine Bilirubin Negative, Urine Urobilinogen Normal, Ur Leukocyte Esterase Negative, Urine RBC 0 SEEN, Urine WBC 0 SEEN, Ur Squamous Epith Cells 0 SEEN, Urine Bacteria 0 SEEN, Urine Mucus 0 SEEN Micro: Microbiology 07/30/23 21:12 Mucosa - Nose SARS-CoV-2, Influenza & RSV (PCR) - Final Influenzae A ABG Data ABG results: ABG 07/30/23 21:22 Specimen Type LASHAE Sample Site Not entered O2 % 3.0 VBG pH 7.36 VBG pO2 38 VBG HCO3 28 H VBG Total CO2 29 VBG O2 Sat (Calc) 69 VBG Base Excess 2 POC Mix VBG pCO2 Pt Tmp 48.6 O2 Delivery Device Cannula Imaging Radiology Impression Brain CT 07/30/23 20:58 IMPRESSION: Age-related changes of the brain. Electronically Signed: Mario Cramer DO at 21:46 EST , Chest X-Ray 07/30/23 20:58 IMPRESSION: No radiographic evidence of acute cardiopulmonary disease. Electronically Signed: Mario Cramer DO at 21:10 EST , Assessment & Plan Assessment/Plan (1) COPD with acute exacerbation: (2) Influenza A: (3) Acute metabolic encephalopathy: PLAN: Plan This is 73 old gentleman being admitted for multiple reasons including shortnessof breath, tachypnea, wheezing suggestive of COPD exacerbation due to influenza A, acute encephalopathy and hypertensive urgency 1. COPD exacerbation from influenza A: Patient is being admitted in PCU. Chestx- ray initially reviewed and does not show acute infiltrate but bilateral interstitial markings. Patient is started on Tamiflu. Patient is being managedon scheduled bronchodilator, IV Solu-Medrol, Mucinex, incentive spirometry and Pep. Zithromax 500 mg daily added 2. Acute encephalopathy most likely due to infectious/metabolic encephalopathy:Treat the underlying disorder. Avoid benzodiazepines. Orientation cues. If atall needed can use low-dose Haldol. 3. Hypertensive urgency: Blood pressure very high. Patient was given hydralazine in the ED. Resume home medications metoprolol losartan and nifedipine. IVlabetalol and hydralazine as needed for hypertensive urgency. 4. Recent closed fracture of right superior pubic ramus: Patient was admitted between July 24 to for fall and pubic rami fracture of right side. 5. Moderate to severe chronic malnutrition: Gear Technician consult. Nutritional supplement. 6. History of paroxysmal A-fib: Not on anticoagulant due to history of recurrent fall. On metoprolol. 7. Multiple other chronic comorbidities include BPH with with history of MCDONOUGH, on tamsulosin and finasteride, depression, GERD, history of CVA: Patient on Plavix and statin, PPI. Continue sertraline and mirtazapine. Advanced directive/living will/CODE STATUS: Cannot be ascertained patient is confused and oriented. Full code unverified. Microbiology Past 72 Hours 07/30/23 21:12 Mucosa - Nose SARS-CoV-2, Influenza & RSV (PCR) - Final Influenzae A Laboratory Results 07/30/23 20:51: WBC 5.5, RBC 4.07 L, Hgb 13.3, Hct 40.4, MCV 99.3 H, MCH 32.7 H,MCHC 32.9, RDW Std Deviation 48.3 H, RDW Coeff of Aly 13.2, Plt Count 262, MPV 9.4, Immature Gran % (Auto) 0.500, Neut % (Auto) 76.5 H, Lymph % (Auto) 10.9 L, Phelps % (Auto) 10.7 H, Eos % (Auto) 0.5, Baso % (Auto) 0.9, Absolute Neuts (auto)4.2, Absolute Lymphs (auto) 0.60 L, Nucleated RBC % 0, Sodium 138, Potassium 4.2, Chloride 102, Carbon Dioxide 29.0, Anion Gap 7, BUN 26 H, Creatinine 1.14, Estim Creat Clear Calc 55.00, Est GFR (MDRD) Af Amer 81, Est GFR (MDRD) Non-Af 67, BUN/Creatinine Ratio 22.8 H, Glucose 114 H, Calcium 9.2, Troponin I High Sens 15, B-Natriuretic Peptide 218.8 H 07/30/23 21:22: Specimen Type LASHAE, Sample Site Not entered, O2 % 3.0, VBG pH 7.36, VBG pO2 38, VBG HCO3 28 H, VBG Total CO2 29, VBG O2 Sat (Calc) 69, VBG Base Excess 2, POC Mix VBG pCO2 Pt Tmp 48.6, O2 Delivery Device Cannula 07/30/23 21:55: Urine Color Yellow, Urine Clarity Clear, Urine pH 7.0, Ur Specific Olema 1.010, Urine Protein 30 H, Urine Glucose (UA) Normal, Urine Ketones Negative, Urine Occult Blood 10 H, Urine Nitrite Negative, Urine Bilirubin Negative, Urine Urobilinogen Normal, Ur Leukocyte Esterase Negative, Urine RBC 0 SEEN, Urine WBC 0 SEEN, Ur Squamous Epith Cells 0 SEEN, Urine Bacteria 0 SEEN, Urine Mucus 0 SEEN Clinical Impression(s) from Imaging Studies Brain CT 07/30/23 20:58 IMPRESSION: Age-related changes of the brain. Chest X-Ray 07/30/23 20:58 IMPRESSION: No radiographic evidence of acute cardiopulmonary disease. Electronically Signed: Mario Cramer DO at 21:10 EST , Charges/Coding Visit Charges Inpatient E&M: 14331 Init Hosp L3 07/31/23 0101 <Electronically signed by Brody Maynard MD> Cosigner Signature (if applicable): CC: Dr. Daija Morton MD; Dr. Brody Maynard MD~ Signed [facility] Work Phone: [phone]) 578-623602-12-2024 Discharge summary Author Huber Alvarado [facility] July 31, 2023 12:08am Note Date/Time July 30, 2023 8:57pm [facility] Medical Records Department [address] [place] [address] Emergency Department Summary 07/30/23 MR#: [id number] Acct: [id number] Name: PEDRO PABLO SIERRA Rep #:[id number] : 1950 73 From: Андрей CORTEZ PCP: Dr. Daija Morton MD Status:REG E R Location: ED HPI <DIEGO Hopper - Last Filed: 07/30/23 22:27> History of Present Illness Chief Complaint: Shortness of Breath Narrative Narrative: Patient is a 73-year-old male with a long medical history including COPD on 3 to5 L nasal cannula, history of recent pubic rami fracture, hypertension, history of ulcerative colitis, presenting to the emergency department for shortness of breath. Patient was admitted here on 24 July, discharged to a senior care. Per the senior care, the patient was more short of breath, tachypneic, and was wheezing more. Patient is alert and oriented to self. Patient is coarse, not answering to my questions. He is aggressive and is answering. I am not sure ifthis is his baseline. Patient's vital signs are stable on his 3 to 5 L of nasalcannula oxygen, patient is tachypneic. He does have audible wheezing. PFSH <DIEGO Hopper - Last Filed: 07/30/23 22:27> [facility] Medical History Asthma Atrial fibrillation Chronic pain COPD (chronic obstructive pulmonary disease) COPD (chronic obstructive pulmonary disease) Depression Diabetes Falls frequently High cholesterol Hypertension Irregular heart beat Kidney stones On home oxygen therapy Pancreatitis Seizures Sleep apnea Smoker Stroke/cerebrovascular accident Home Medications tamsulosin 0.4 mg capsule 0.4 mg PO QHS bph 01/26/14 [History Last Taken 03/28/23] finasteride 5 mg tablet 5 mg PO DAILY prostate 11/14/14 [History Last Taken 03/28/23] atorvastatin 40 mg tablet 40 mg PO QHS Cholesterol 09/23/15 [History Last Taken 03/28/23] mirtazapine 15 mg tablet 15 mg PO QHS anti depressant 08/16/19 [History Last Taken 03/28/23] clopidogrel 75 mg tablet 75 mg PO DAILY blood thinner 10/25/19 [History Last Taken 03/28/23] carbamazepine 200 mg tablet 200 mg PO Q12H Check with primary doctor 10/26/19 [History Last Taken 03/28/23] losartan 100 mg tablet 100 mg PO DAILY Blood pressure 08/19/21 [History Last Taken 03/28/23] pantoprazole 40 mg tablet,delayed release 40 mg PO DAILY GERD 08/19/21 [History Last Taken 03/28/23] nifedipine 90 mg tablet,extended release 90 mg PO DAILY blood pressure 11/25/21 [History Last Taken 03/28/23] alendronate 70 mg tablet 70 mg PO QWEEK #1 TAB 11/30/21 [Rx Last Taken 03/28/23] nicotine 21 mg/24 hr daily transdermal patch 21 mg transdermal DAILY #0 ea 11/30/21 [Rx Last Taken 03/28/23] albuterol sulfate 90 mcg/actuation aerosol inhaler 1 puff inhalation Q8H breathing 03/30/23 [History Last Taken 03/28/23] metoprolol tartrate 25 mg tablet 25 mg PO DAILY Blood pressure 03/30/23 [History Last Taken 03/28/23] sennosides 8.6 mg-docusate sodium 50 mg tablet (Stool Softener-Stimulant Laxative) 2 tab PO BID PRN PRN Constipation #0 tabs 04/04/23 [Rx Last Taken Unknown] acetaminophen 500 mg tablet 1,000 mg (2 x 500 mg) PO Q8 30 days #0 tabs 07/26/23[Rx Last Taken Unknown] oxycodone 5 mg tablet 5 mg PO Q4H PRN PRN Pain Score 4-10 7 days #42 tabs 07/26/23 [Rx Last Taken Unknown] Allergy/AdvReac Type Severity Reaction Status Date / Time No Known Allergies Allergy Verified 07/24/23 16:43 Family History Other Heart disease Surgical History History of appendectomy S/P arterial stent Social History household members: none Smoking Status: Current every day smoker tobacco type: cigarettes alcohol intake: former details: Former 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 <DIEGO Hopper - Last Filed: 07/30/23 22:27> ROS ED ROS Narrative When asked if the patient feels short of breath or if he has any complaints, he does not answer any questions. EXAM <DIEGO Hopper - Last Filed: 07/30/23 22:27> Physical Exam Narrative Exam Narrative: Vital signs reviewed. Patient's heart rate is 85, patient is 94 to 95% on 3 L. Patient is tachypneic. HEET: Head normocephalic atraumatic, TMs clear bilaterally. Posterior pharynx is clear, moist mucous membranes. Nares clear bilaterally. Neck: Supple with no lymphadenopathy or tenderness. No signs of meningismus. Cardiac: Regular rate and rhythm no murmurs gallops or rubs, equal peripheral pulses bilaterally. Respiratory: Patient has expiratory wheezing throughout pulmonary exam.. No chest tenderness. Abdomen: Soft, nontender, nondistended. No abdominal bruit or pulsatile masses. No hepatosplenomegaly Extremities: No peripheral edema, no signs of gross trauma or deformity. Activefull range of motion of all extremities. Neuro: Cranial nerves II through XII intact, no focal neurological deficits. Skin: Clean dry and intact with no rash, purpura, petechiae, vesicles or pustules. Backs/flank: No CVA tenderness, no midline spinal tenderness, no deformity. Psych: Normal mood and affect. No SI, HI or acute psychosis. Const Vital Signs: 07/30/23 20:30 07/30/23 20:33 07/30/23 20:34 Temperature 99 F 99 F 99 F Temperature Source Temporal Temporal Temporal Pulse Rate 86 88 88 Respiratory Rate 35 H 33 H 30 H Respiratory Effort Respiratory Depth Respiratory Pattern Blood Pressure 178/101 H 178/101 H 178/101 H Blood Pressure Mean 126 126 126 Pulse Ox 95 95 95 Oxygen Delivery Method Nasal Cannula Nasal Cannula Nasal Cannula Oxygen Flow Rate (L/min) 3 3 3 07/30/23 20:36 07/30/23 20:56 07/30/23 21:15 Temperature Temperature Source Pulse Rate 90 Respiratory Rate 27 H Respiratory Effort Short of Breath Labored Respiratory Depth Normal Respiratory Pattern Tachypnea Blood Pressure 219/80 H Blood Pressure Mean 126 Pulse Ox 95 Oxygen Delivery Method Nasal Cannula Nasal Cannula Nasal Cannula Oxygen Flow Rate (L/min) 3 3 3 07/30/23 21:05 07/30/23 21:51 07/30/23 22:08 Temperature 99.7 F H Temperature Source Temporal Pulse Rate 95 101 H 96 Respiratory Rate 28 H 33 H 36 H Respiratory Effort Respiratory Depth Respiratory Pattern Tachypnea Tachypnea Blood Pressure 218/87 H Blood Pressure Mean 130 Pulse Ox 91 Oxygen Delivery Method Nasal Cannula Oxygen Flow Rate (L/min) 3 07/30/23 22:24 07/30/23 23:00 07/30/23 23:25 Temperature 99 F 99.4 F H 99 F Temperature Source Temporal Temporal Temporal Pulse Rate 101 H 96 102 H Respiratory Rate 30 H 36 H 33 H Respiratory Effort Respiratory Depth Respiratory Pattern Blood Pressure 233/90 H 219/85 H 219/85 H Blood Pressure Mean 137 129 129 Pulse Ox 94 84 100 Oxygen Delivery Method Nasal Cannula Room Air Nasal Cannula Oxygen Flow Rate (L/min) 3 3 <Dr. Huber Alvarado MD - Last Filed: 07/31/23 00:08> Physical Exam Const Vital Signs: 07/30/23 20:30 07/30/23 20:33 07/30/23 20:34 Temperature 99 F 99 F 99 F Temperature Source Temporal Temporal Temporal Pulse Rate 86 88 88 Respiratory Rate 35 H 33 H 30 H Respiratory Effort Respiratory Depth Respiratory Pattern Blood Pressure 178/101 H 178/101 H 178/101 H Blood Pressure Mean 126 126 126 Pulse Ox 95 95 95 Oxygen Delivery Method Nasal Cannula Nasal Cannula Nasal Cannula Oxygen Flow Rate (L/min) 3 3 3 07/30/23 20:36 07/30/23 20:56 07/30/23 21:15 Temperature Temperature Source Pulse Rate 90 Respiratory Rate 27 H Respiratory Effort Short of Breath Labored Respiratory Depth Normal Respiratory Pattern Tachypnea Blood Pressure 219/80 H Blood Pressure Mean 126 Pulse Ox 95 Oxygen Delivery Method Nasal Cannula Nasal Cannula Nasal Cannula Oxygen Flow Rate (L/min) 3 3 3 07/30/23 21:05 07/30/23 21:51 07/30/23 22:08 Temperature 99.7 F H Temperature Source Temporal Pulse Rate 95 101 H 96 Respiratory Rate 28 H 33 H 36 H Respiratory Effort Respiratory Depth Respiratory Pattern Tachypnea Tachypnea Blood Pressure 218/87 H Blood Pressure Mean 130 Pulse Ox 91 Oxygen Delivery Method Nasal Cannula Oxygen Flow Rate (L/min) 3 07/30/23 22:24 07/30/23 23:00 07/30/23 23:25 Temperature 99 F 99.4 F H 99 F Temperature Source Temporal Temporal Temporal Pulse Rate 101 H 96 102 H Respiratory Rate 30 H 36 H 33 H Respiratory Effort Respiratory Depth Respiratory Pattern Blood Pressure 233/90 H 219/85 H 219/85 H Blood Pressure Mean 137 129 129 Pulse Ox 94 84 100 Oxygen Delivery Method Nasal Cannula Room Air Nasal Cannula Oxygen Flow Rate (L/min) 3 3 [facility] <DIEGO Hopper - Last Filed: 07/30/23 22:27> [facility] Lab Data Labs: Laboratory Results - last 24 hr 07/30/23 07/30/23 20:51 21:55 WBC 5.5 RBC 4.07 L Hgb 13.3 Hct 40.4 MCV 99.3 H MCH 32.7 H MCHC 32.9 RDW Std Deviation 48.3 H RDW Coeff of Aly 13.2 Plt Count 262 MPV 9.4 Immature Gran % (Auto) 0.500 Neut % (Auto) 76.5 H Lymph % (Auto) 10.9 L Phelps % (Auto) 10.7 H Eos % (Auto) 0.5 Baso % (Auto) 0.9 Absolute Neuts (auto) 4.2 Absolute Lymphs (auto) 0.60 L Nucleated RBC % 0 Sodium 138 Potassium 4.2 Chloride 102 Carbon Dioxide 29.0 Anion Gap 7 BUN 26 H Creatinine 1.14 Estim Creat Clear Calc 55.00 Est GFR (MDRD) Af Amer 81 Est GFR (MDRD) Non-Af 67 BUN/Creatinine Ratio 22.8 H Glucose 114 H Calcium 9.2 Troponin I High Sens 15 B-Natriuretic Peptide 218.8 H Urine Color Yellow Urine Clarity Clear Urine pH 7.0 Ur Specific [place] 1.010 Urine Protein 30 H Urine Glucose (UA) Normal Urine Ketones Negative Urine Occult Blood 10 H Urine Nitrite Negative Urine Bilirubin Negative Urine Urobilinogen Normal Ur Leukocyte Esterase Negative Urine RBC 0 SEEN Urine WBC 0 SEEN Ur Squamous Epith Cells 0 SEEN Urine Bacteria 0 SEEN Urine Mucus 0 SEEN ABG Data ABG results: ABG 07/30/23 21:22 Specimen Type LASHAE Sample Site Not entered O2 % 3.0 VBG pH 7.36 VBG pO2 38 VBG HCO3 28 H VBG Total CO2 29 VBG O2 Sat (Calc) 69 VBG Base Excess 2 POC Mix VBG pCO2 Pt Tmp 48.6 O2 Delivery Device Cannula Radiography Diagnostic Testing: Clinical Impression(s) from Imaging Studies Brain CT 07/30/23 20:58 IMPRESSION: Age-related changes of the brain. Electronically Signed: Mario Cramer DO at 21:46 EST , Chest X-Ray 07/30/23 20:58 IMPRESSION: No radiographic evidence of acute cardiopulmonary disease. Electronically Signed: Mario Cramer DO at 21:10 EST , Treatment and Re-Evaluation :: Patient arrives in mild to moderate distress secondary to shortness of breath. Patient with 3 to 5 L is 94% however patient is tachypneic at a rate of 30. Patient's blood pressure is elevated over 200/100. Patient appears confused. Patient is moving all extremities. Currently at the senior care after sustaining a pubic rami fracture. Differential diagnosis includes community-acquired pneumonia, sepsis, fever, metabolic encephalopathy, viral syndrome. Patient's chest x-ray showed no radiographic evidence of any acute cardiopulmonary disease. Patient's urinalysis showed patient's urinalysis was negative for any infection. Patient CT scan of the brain shows age-related changes. Patient's laboratory values show a normal CBC, patient's chemistries wereunremarkable, troponin was negative, patient's proBNP was 218.8. Patient did receive a respiratory panel, patient was positive for influenza A. This does reflect the patient's dyspnea, altered mental status. He believe the patient need to be admitted to the hospital. <Dr. Huber Alvarado MD - Last Filed: 07/31/23 00:08> [facility] Narrative Medical decision making narrative: I have personally performed a face to face assessment of the patient and have reviewed the ANDREW Note. I performed a substantive portion of the visit including all aspects of the following. My echevarria findings include: History: This patient was sent in by senior care for increased blood pressure and increased dyspnea today. There is a report of a fever although I am not finding what that level was. Patient does admit that he is short of breath. Hethinks it is a day or 2 but he is not a good informant for details. He seems a little bit confused that waxes and wanes. But he is not hypoxic. I have talkedto some of the nurses here who knows him and evidently this is really not significantly far off his baseline. Exam: Patient is awake and alert. He is breathing quickly but he does not look markedly dyspneic. His saturations are good. But he is extremely tight and wheezing. Significant AP diameter increase with chronic COPD and extensive inspiratory and expiratory wheezes. Heart is regular at about 90. Abdomen is soft and nontender. I did not press on the pelvic areas as he has known fractures. Medical Decision Making: Patient is giving breathing treatments. He is still wheezing significantly after that. He is given steroids. I did end up giving him Ativan. Evidently he has some sundowning which she was getting a little combative. But he was not hypoxic with this. Blood pressure is also up. I do not know if he got his metoprolol or nifedipine or losartan today. He was givenhydralazine here and it has helped. Chest x-ray shows no acute process. CT of the head was done because we were not sure if he had had a change in mental status but evidently he is about his baseline. And he had had recent falls and hospitalization. Patient is still wheezing quite a bit. I do not think this would be tolerated at the senior care. He is tachypneic but not tachycardic. He is not saturating. I believe his influenza A and severe COPD with wheezing does explain the tachypnea. Lab Data Labs: Laboratory Results - last 24 hr 07/30/23 07/30/23 20:51 21:55 WBC 5.5 RBC 4.07 L Hgb 13.3 Hct 40.4 MCV 99.3 H MCH 32.7 H MCHC 32.9 RDW Std Deviation 48.3 H RDW Coeff of Aly 13.2 Plt Count 262 MPV 9.4 Immature Gran % (Auto) 0.500 Neut % (Auto) 76.5 H Lymph % (Auto) 10.9 L Phelps % (Auto) 10.7 H Eos % (Auto) 0.5 Baso % (Auto) 0.9 Absolute Neuts (auto) 4.2 Absolute Lymphs (auto) 0.60 L Nucleated RBC % 0 Sodium 138 Potassium 4.2 Chloride 102 Carbon Dioxide 29.0 Anion Gap 7 BUN 26 H Creatinine 1.14 Estim Creat Clear Calc 55.00 Est GFR (MDRD) Af Amer 81 Est GFR (MDRD) Non-Af 67 BUN/Creatinine Ratio 22.8 H Glucose 114 H Calcium 9.2 Troponin I High Sens 15 B-Natriuretic Peptide 218.8 H Urine Color Yellow Urine Clarity Clear Urine pH 7.0 Ur Specific Olema 1.010 Urine Protein 30 H Urine Glucose (UA) Normal Urine Ketones Negative Urine Occult Blood 10 H Urine Nitrite Negative Urine Bilirubin Negative Urine Urobilinogen Normal Ur Leukocyte Esterase Negative Urine RBC 0 SEEN Urine WBC 0 SEEN Ur Squamous Epith Cells 0 SEEN Urine Bacteria 0 SEEN Urine Mucus 0 SEEN ABG Data ABG results: ABG 07/30/23 21:22 Specimen Type LASHAE Sample Site Not entered O2 % 3.0 VBG pH 7.36 VBG pO2 38 VBG HCO3 28 H VBG Total CO2 29 VBG O2 Sat (Calc) 69 VBG Base Excess 2 POC Mix VBG pCO2 Pt Tmp 48.6 O2 Delivery Device Cannula Radiography Diagnostic Testing: Clinical Impression(s) from Imaging Studies Brain CT 07/30/23 20:58 IMPRESSION: Age-related changes of the brain. Electronically Signed: Mario Cramer DO at 21:46 EST , Chest X-Ray 07/30/23 20:58 IMPRESSION: No radiographic evidence of acute cardiopulmonary disease. Electronically Signed: Mario Cramer DO at 21:10 EST , Discharge Plan Dx/Rx/DC Orders Clinical Impression: Acute dyspnea, Hypertension, Acute metabolic encephalopathy, Influenza A, COPD with acute exacerbation Disposition Disposition: [facility] What to do if you have Problems For any increased pain, shortness of breath, bleeding, nausea or vomiting, chestpain, or any unexpected problems, contact your Primary Care Provider. Call [facility] ([phone]) or report to the closest Emergency Room. Call 911 if necessary. 07/30/232226 <Electronically signed by Андрей CORTEZ> Cosigner Signature (if applicable): 07/31/23 0008 <Electronically signed by Huber Alvarado MD> CC: Dr. Daija Morton MD ~ Signed [facility] Work Phone: 1(667) 693-643102-11-2024 Discharge summary Author Huber Alvarado [facility] July 31, 2023 12:08am Note Date/Time July 30, 2023 8:57pm [facility] Medical Records Department [address] [place] [id number] Emergency Department Summary 07/30/23 MR#: [id number] Acct: [id number] Name: PEDRO PABLO SIERRA Rep #:[id number] : 1950 73 From: Андрей CORTEZ PCP: Dr. Daija Morton MD Status:REG E R Location: ED HPI <DIEGO Hopper - Last Filed: 07/30/23 22:27> History of Present Illness Chief Complaint: Shortness of Breath Narrative Narrative: Patient is a 73-year-old male with a long medical history including COPD on 3 to5 L nasal cannula, history of recent pubic rami fracture, hypertension, history of ulcerative colitis, presenting to the emergency department for shortness of breath. Patient was admitted here on 24 July, discharged to a senior care. Per the senior care, the patient was more short of breath, tachypneic, and was wheezing more. Patient is alert and oriented to self. Patient is coarse, not answering to my questions. He is aggressive and is answering. I am not sure ifthis is his baseline. Patient's vital signs are stable on his 3 to 5 L of nasalcannula oxygen, patient is tachypneic. He does have audible wheezing. [facility] <DIEGO Hopper - Last Filed: 07/30/23 22:27> [facility] Medical History Asthma Atrial fibrillation Chronic pain COPD (chronic obstructive pulmonary disease) COPD (chronic obstructive pulmonary disease) Depression Diabetes Falls frequently High cholesterol Hypertension Irregular heart beat Kidney stones On home oxygen therapy Pancreatitis Seizures Sleep apnea Smoker Stroke/cerebrovascular accident Home Medications tamsulosin 0.4 mg capsule 0.4 mg PO QHS bph 01/26/14 [History Last Taken 03/28/23] finasteride 5 mg tablet 5 mg PO DAILY prostate 11/14/14 [History Last Taken 03/28/23] atorvastatin 40 mg tablet 40 mg PO QHS Cholesterol 09/23/15 [History Last Taken 03/28/23] mirtazapine 15 mg tablet 15 mg PO QHS anti depressant 08/16/19 [History Last Taken 03/28/23] clopidogrel 75 mg tablet 75 mg PO DAILY blood thinner 10/25/19 [History Last Taken 03/28/23] carbamazepine 200 mg tablet 200 mg PO Q12H Check with primary doctor 10/26/19 [History Last Taken 03/28/23] losartan 100 mg tablet 100 mg PO DAILY Blood pressure 08/19/21 [History Last Taken 03/28/23] pantoprazole 40 mg tablet,delayed release 40 mg PO DAILY GERD 08/19/21 [History Last Taken 03/28/23] nifedipine 90 mg tablet,extended release 90 mg PO DAILY blood pressure 11/25/21 [History Last Taken 03/28/23] alendronate 70 mg tablet 70 mg PO QWEEK #1 TAB 11/30/21 [Rx Last Taken 03/28/23] nicotine 21 mg/24 hr daily transdermal patch 21 mg transdermal DAILY #0 ea 11/30/21 [Rx Last Taken 03/28/23] albuterol sulfate 90 mcg/actuation aerosol inhaler 1 puff inhalation Q8H breathing 03/30/23 [History Last Taken 03/28/23] metoprolol tartrate 25 mg tablet 25 mg PO DAILY Blood pressure 03/30/23 [History Last Taken 03/28/23] sennosides 8.6 mg-docusate sodium 50 mg tablet (Stool Softener-Stimulant Laxative) 2 tab PO BID PRN PRN Constipation #0 tabs 04/04/23 [Rx Last Taken Unknown] acetaminophen 500 mg tablet 1,000 mg (2 x 500 mg) PO Q8 30 days #0 tabs 07/26/23[Rx Last Taken Unknown] oxycodone 5 mg tablet 5 mg PO Q4H PRN PRN Pain Score 4-10 7 days #42 tabs 07/26/23 [Rx Last Taken Unknown] Allergy/AdvReac Type Severity Reaction Status Date / Time No Known Allergies Allergy Verified 07/24/23 16:43 Family History Other Heart disease Surgical History History of appendectomy S/P arterial stent Social History household members: none Smoking Status: Current every day smoker tobacco type: cigarettes alcohol intake: former details: Former 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 <DIEGO Hopper - Last Filed: 07/30/23 22:27> ROS ED ROS Narrative When asked if the patient feels short of breath or if he has any complaints, he does not answer any questions. EXAM <DIEGO Hopper - Last Filed: 07/30/23 22:27> Physical Exam Narrative Exam Narrative: Vital signs reviewed. Patient's heart rate is 85, patient is 94 to 95% on 3 L. Patient is tachypneic. HEET: Head normocephalic atraumatic, TMs clear bilaterally. Posterior pharynx is clear, moist mucous membranes. Nares clear bilaterally. Neck: Supple with no lymphadenopathy or tenderness. No signs of meningismus. Cardiac: Regular rate and rhythm no murmurs gallops or rubs, equal peripheral pulses bilaterally. Respiratory: Patient has expiratory wheezing throughout pulmonary exam.. No chest tenderness. Abdomen: Soft, nontender, nondistended. No abdominal bruit or pulsatile masses. No hepatosplenomegaly Extremities: No peripheral edema, no signs of gross trauma or deformity. Activefull range of motion of all extremities. Neuro: Cranial nerves II through XII intact, no focal neurological deficits. Skin: Clean dry and intact with no rash, purpura, petechiae, vesicles or pustules. Backs/flank: No CVA tenderness, no midline spinal tenderness, no deformity. Psych: Normal mood and affect. No SI, HI or acute psychosis. Const Vital Signs: 07/30/23 20:30 07/30/23 20:33 07/30/23 20:34 Temperature 99 F 99 F 99 F Temperature Source Temporal Temporal Temporal Pulse Rate 86 88 88 Respiratory Rate 35 H 33 H 30 H Respiratory Effort Respiratory Depth Respiratory Pattern Blood Pressure 178/101 H 178/101 H 178/101 H Blood Pressure Mean 126 126 126 Pulse Ox 95 95 95 Oxygen Delivery Method Nasal Cannula Nasal Cannula Nasal Cannula Oxygen Flow Rate (L/min) 3 3 3 07/30/23 20:36 07/30/23 20:56 07/30/23 21:15 Temperature Temperature Source Pulse Rate 90 Respiratory Rate 27 H Respiratory Effort Short of Breath Labored Respiratory Depth Normal Respiratory Pattern Tachypnea Blood Pressure 219/80 H Blood Pressure Mean 126 Pulse Ox 95 Oxygen Delivery Method Nasal Cannula Nasal Cannula Nasal Cannula Oxygen Flow Rate (L/min) 3 3 3 07/30/23 21:05 07/30/23 21:51 07/30/23 22:08 Temperature 99.7 F H Temperature Source Temporal Pulse Rate 95 101 H 96 Respiratory Rate 28 H 33 H 36 H Respiratory Effort Respiratory Depth Respiratory Pattern Tachypnea Tachypnea Blood Pressure 218/87 H Blood Pressure Mean 130 Pulse Ox 91 Oxygen Delivery Method Nasal Cannula Oxygen Flow Rate (L/min) 3 07/30/23 22:24 07/30/23 23:00 07/30/23 23:25 Temperature 99 F 99.4 F H 99 F Temperature Source Temporal Temporal Temporal Pulse Rate 101 H 96 102 H Respiratory Rate 30 H 36 H 33 H Respiratory Effort Respiratory Depth Respiratory Pattern Blood Pressure 233/90 H 219/85 H 219/85 H Blood Pressure Mean 137 129 129 Pulse Ox 94 84 100 Oxygen Delivery Method Nasal Cannula Room Air Nasal Cannula Oxygen Flow Rate (L/min) 3 3 <Dr. Huber Alvarado MD - Last Filed: 07/31/23 00:08> Physical Exam Const Vital Signs: 07/30/23 20:30 07/30/23 20:33 07/30/23 20:34 Temperature 99 F 99 F 99 F Temperature Source Temporal Temporal Temporal Pulse Rate 86 88 88 Respiratory Rate 35 H 33 H 30 H Respiratory Effort Respiratory Depth Respiratory Pattern Blood Pressure 178/101 H 178/101 H 178/101 H Blood Pressure Mean 126 126 126 Pulse Ox 95 95 95 Oxygen Delivery Method Nasal Cannula Nasal Cannula Nasal Cannula Oxygen Flow Rate (L/min) 3 3 3 07/30/23 20:36 07/30/23 20:56 07/30/23 21:15 Temperature Temperature Source Pulse Rate 90 Respiratory Rate 27 H Respiratory Effort Short of Breath Labored Respiratory Depth Normal Respiratory Pattern Tachypnea Blood Pressure 219/80 H Blood Pressure Mean 126 Pulse Ox 95 Oxygen Delivery Method Nasal Cannula Nasal Cannula Nasal Cannula Oxygen Flow Rate (L/min) 3 3 3 07/30/23 21:05 07/30/23 21:51 07/30/23 22:08 Temperature 99.7 F H Temperature Source Temporal Pulse Rate 95 101 H 96 Respiratory Rate 28 H 33 H 36 H Respiratory Effort Respiratory Depth Respiratory Pattern Tachypnea Tachypnea Blood Pressure 218/87 H Blood Pressure Mean 130 Pulse Ox 91 Oxygen Delivery Method Nasal Cannula Oxygen Flow Rate (L/min) 3 07/30/23 22:24 07/30/23 23:00 07/30/23 23:25 Temperature 99 F 99.4 F H 99 F Temperature Source Temporal Temporal Temporal Pulse Rate 101 H 96 102 H Respiratory Rate 30 H 36 H 33 H Respiratory Effort Respiratory Depth Respiratory Pattern Blood Pressure 233/90 H 219/85 H 219/85 H Blood Pressure Mean 137 129 129 Pulse Ox 94 84 100 Oxygen Delivery Method Nasal Cannula Room Air Nasal Cannula Oxygen Flow Rate (L/min) 3 3 MDM <DIEGO Hopper - Last Filed: 07/30/23 22:27> MDM Lab Data Labs: Laboratory Results - last 24 hr 07/30/23 07/30/23 20:51 21:55 WBC 5.5 RBC 4.07 L Hgb 13.3 Hct 40.4 MCV 99.3 H MCH 32.7 H MCHC 32.9 RDW Std Deviation 48.3 H RDW Coeff of Aly 13.2 Plt Count 262 MPV 9.4 Immature Gran % (Auto) 0.500 Neut % (Auto) 76.5 H Lymph % (Auto) 10.9 L Phelps % (Auto) 10.7 H Eos % (Auto) 0.5 Baso % (Auto) 0.9 Absolute Neuts (auto) 4.2 Absolute Lymphs (auto) 0.60 L Nucleated RBC % 0 Sodium 138 Potassium 4.2 Chloride 102 Carbon Dioxide 29.0 Anion Gap 7 BUN 26 H Creatinine 1.14 Estim Creat Clear Calc 55.00 Est GFR (MDRD) Af Amer 81 Est GFR (MDRD) Non-Af 67 BUN/Creatinine Ratio 22.8 H Glucose 114 H Calcium 9.2 Troponin I High Sens 15 B-Natriuretic Peptide 218.8 H Urine Color Yellow Urine Clarity Clear Urine pH 7.0 Ur Specific Olema 1.010 Urine Protein 30 H Urine Glucose (UA) Normal Urine Ketones Negative Urine Occult Blood 10 H Urine Nitrite Negative Urine Bilirubin Negative Urine Urobilinogen Normal Ur Leukocyte Esterase Negative Urine RBC 0 SEEN Urine WBC 0 SEEN Ur Squamous Epith Cells 0 SEEN Urine Bacteria 0 SEEN Urine Mucus 0 SEEN ABG Data ABG results: ABG 07/30/23 21:22 Specimen Type LASHAE Sample Site Not entered O2 % 3.0 VBG pH 7.36 VBG pO2 38 VBG HCO3 28 H VBG Total CO2 29 VBG O2 Sat (Calc) 69 VBG Base Excess 2 POC Mix VBG pCO2 Pt Tmp 48.6 O2 Delivery Device Cannula Radiography Diagnostic Testing: Clinical Impression(s) from Imaging Studies Brain CT 07/30/23 20:58 IMPRESSION: Age-related changes of the brain. Electronically Signed: Mario Cramer DO at 21:46 EST , Chest X-Ray 07/30/23 20:58 IMPRESSION: No radiographic evidence of acute cardiopulmonary disease. Electronically Signed: Mario Cramer DO at 21:10 EST , Treatment and Re-Evaluation :: Patient arrives in mild to moderate distress secondary to shortness of breath. Patient with 3 to 5 L is 94% however patient is tachypneic at a rate of 30. Patient's blood pressure is elevated over 200/100. Patient appears confused. Patient is moving all extremities. Currently at the senior care after sustaining a pubic rami fracture. Differential diagnosis includes community-acquired pneumonia, sepsis, fever, metabolic encephalopathy, viral syndrome. Patient's chest x-ray showed no radiographic evidence of any acute cardiopulmonary disease. Patient's urinalysis showed patient's urinalysis was negative for any infection. Patient CT scan of the brain shows age-related changes. Patient's laboratory values show a normal CBC, patient's chemistries wereunremarkable, troponin was negative, patient's proBNP was 218.8. Patient did receive a respiratory panel, patient was positive for influenza A. This does reflect the patient's dyspnea, altered mental status. He believe the patient need to be admitted to the hospital. <Dr. Huber Alvarado MD - Last Filed: 07/31/23 00:08> [facility] Narrative Medical decision making narrative: I have personally performed a face to face assessment of the patient and have reviewed the ANDREW Note. I performed a substantive portion of the visit including all aspects of the following. My echevarria findings include: History: This patient was sent in by senior care for increased blood pressure and increased dyspnea today. There is a report of a fever although I am not finding what that level was. Patient does admit that he is short of breath. Hethinks it is a day or 2 but he is not a good informant for details. He seems a little bit confused that waxes and wanes. But he is not hypoxic. I have talkedto some of the nurses here who knows him and evidently this is really not significantly far off his baseline. Exam: Patient is awake and alert. He is breathing quickly but he does not look markedly dyspneic. His saturations are good. But he is extremely tight and wheezing. Significant AP diameter increase with chronic COPD and extensive inspiratory and expiratory wheezes. Heart is regular at about 90. Abdomen is soft and nontender. I did not press on the pelvic areas as he has known fractures. Medical Decision Making: Patient is giving breathing treatments. He is still wheezing significantly after that. He is given steroids. I did end up giving him Ativan. Evidently he has some sundowning which she was getting a little combative. But he was not hypoxic with this. Blood pressure is also up. I do not know if he got his metoprolol or nifedipine or losartan today. He was givenhydralazine here and it has helped. Chest x-ray shows no acute process. CT of the head was done because we were not sure if he had had a change in mental status but evidently he is about his baseline. And he had had recent falls and hospitalization. Patient is still wheezing quite a bit. I do not think this would be tolerated at the senior care. He is tachypneic but not tachycardic. He is not saturating. I believe his influenza A and severe COPD with wheezing does explain the tachypnea. Lab Data Labs: Laboratory Results - last 24 hr 07/30/23 07/30/23 20:51 21:55 WBC 5.5 RBC 4.07 L Hgb 13.3 Hct 40.4 MCV 99.3 H MCH 32.7 H MCHC 32.9 RDW Std Deviation 48.3 H RDW Coeff of Aly 13.2 Plt Count 262 MPV 9.4 Immature Gran % (Auto) 0.500 Neut % (Auto) 76.5 H Lymph % (Auto) 10.9 L Phelps % (Auto) 10.7 H Eos % (Auto) 0.5 Baso % (Auto) 0.9 Absolute Neuts (auto) 4.2 Absolute Lymphs (auto) 0.60 L Nucleated RBC % 0 Sodium 138 Potassium 4.2 Chloride 102 Carbon Dioxide 29.0 Anion Gap 7 BUN 26 H Creatinine 1.14 Estim Creat Clear Calc 55.00 Est GFR (MDRD) Af Amer 81 Est GFR (MDRD) Non-Af 67 BUN/Creatinine Ratio 22.8 H Glucose 114 H Calcium 9.2 Troponin I High Sens 15 B-Natriuretic Peptide 218.8 H Urine Color Yellow Urine Clarity Clear Urine pH 7.0 Ur Specific Olema 1.010 Urine Protein 30 H Urine Glucose (UA) Normal Urine Ketones Negative Urine Occult Blood 10 H Urine Nitrite Negative Urine Bilirubin Negative Urine Urobilinogen Normal Ur Leukocyte Esterase Negative Urine RBC 0 SEEN Urine WBC 0 SEEN Ur Squamous Epith Cells 0 SEEN Urine Bacteria 0 SEEN Urine Mucus 0 SEEN ABG Data ABG results: ABG 07/30/23 21:22 Specimen Type LASHAE Sample Site Not entered O2 % 3.0 VBG pH 7.36 VBG pO2 38 VBG HCO3 28 H VBG Total CO2 29 VBG O2 Sat (Calc) 69 VBG Base Excess 2 POC Mix VBG pCO2 Pt Tmp 48.6 O2 Delivery Device Cannula Radiography Diagnostic Testing: Clinical Impression(s) from Imaging Studies Brain CT 07/30/23 20:58 IMPRESSION: Age-related changes of the brain. Electronically Signed: Mario Cramer DO at 21:46 EST , Chest X-Ray 07/30/23 20:58 IMPRESSION: No radiographic evidence of acute cardiopulmonary disease. Electronically Signed: Mario Cramer DO at 21:10 EST , Discharge Plan Dx/Rx/DC Orders Clinical Impression: Acute dyspnea, Hypertension, Acute metabolic encephalopathy, Influenza A, COPD with acute exacerbation Disposition Disposition: Acute Care Hospital [facility] What to do if you have Problems For any increased pain, shortness of breath, bleeding, nausea or vomiting, chestpain, or any unexpected problems, contact your Primary Care Provider. Call [facility] ([phone]) or report to the closest Emergency Room. Call 911 if necessary. 07/30/232226 <Electronically signed by Андрей CORTEZ> Cosigner Signature (if applicable): 07/31/23 0008 <Electronically signed by Huber Alvaardo MD> CC: Dr. Daija Morton MD ~ Signed [facility] Work Phone: 1(463) 448-132402-01-2024 Miscellaneous Notes* Telephone Encounter - Saundra George RN - 07/20/2023 8:49 AM EST Spoke with patient and provider message reviewed. Message left for Mahnaz with [facility] to call back if any questions. Saundra George RN * Telephone Encounter - Bryce Rogers MD - 07/19/2023 5:30 PM EST Continue to monitor. Follow up with Anjel next week as scheduled. Do fasting labs as ordered. * Telephone Encounter - Saundra George RN - 07/19/2023 2:59 PM EST Mahnaz with [facility] calls to give provider update. Patient was seen today for HH visit and during visit complained of abdominal pain, rib pain, and chest pain with coughing. Afebrile. Productive cough with clear/yellow mucus. Mahnaz reports patient continues to smoke and cough is chronic. Message left on voicemail of Sondra Alejo [phone] to request Pedro Pablo contact the office for further triage. Saundra George RN documented [facility]24 Note. MICRO - Microbiology PROCEDURE: Urine Culture [*1] SOURCE: Urine, Clean Catch BODY SITE: COLLECTED DATE/TIME: 07/10/2023 12:00 EST RECEIVED DATE/TIME: 07/10/2023 16:50 EST START DATE/TIME: 07/10/2023 16:50 EST FREE TEXT SOURCE: FINAL REPORTS Final Report [] Verified Date/Time/Personnel: 07/11/2023 14:00 EST 10,000 - 50,000 cfu/ml Mixed growth consistent with normal urogenital kishore. Performing Locations *1: This test was performed at: [facility], [address] [place] [address], [phone] , Formerly [facility], [facility] ([place])05-30-2023 Miscellaneous Notes* Telephone Encounter - Kelly Zelaya RN - 05/30/2023 2:46 PM EST Patient has been identified by name and date of : Yes, Provider Dr Morton Date 05/30/23 Time 1447. Pharmacy phones for refill(s): Requested Prescriptions Pending Prescriptions Disp Refills ipratropium-albuterol (DUONEB) 0.5 mg-3 mg(2.5 mg base)/3 mL nebu 120 mL 5 Sig: Inhale 3 mL as instructed every 6 hours as needed for wheezing/shortness of breath. Date of last office visit in primary care: 08/27/2022 Date of next office visit in primary care: Visit date not found Last 2 Encounter Wt Readings: Date: Wt: 08/27/2022 71.2 kg (157 lb) 03/08/2022 65.8 kg (145 lb) Previous labs/tests for medication: Blood Pressure: BUN (mg/dL) Date Value 02/04/2022 18 04/10/2020 17 Sodium (mmol/L) Date Value 02/04/2022 133 04/10/2020 139 Last 1 Encounter BP Readings: Date: BP: 12/26/2022 207/90 Liver Function: ALT (U/L) Date Value 09/03/2021 29 04/10/2020 19 AST (U/L) Date Value 09/03/2021 15 04/10/2020 17 Please advise. Thank you. Kelly Zelaya RN. documented in this encounterMer[facility]12-12-2023 Miscellaneous Notes* Telephone Encounter - Isabella Hdz LPN - 05/30/2023 2:39 PM EST Pharmacy calling requesting refills. Advises that pt just got discharged from senior care and theywould like to deliver these meds tomorrow if possible. Last refill Flomax and Proscar 02/28/23 Qty: 30 with 1 refill Last refill lidocaine patches 09/30/22 Qty: 15 with 0 refills JEANNINE 08/27/22 NOV none scheduled Isabella Hdz LPN documented in this encounterMer[facility]12-04-2023 Miscellaneous Notes* Telephone Encounter - Nani Webb LPN - 05/22/2023 10:17 AM EST [facility] called in and message below given. Stella's PH>[phone]. Nani More Jon MCKEON * Telephone Encounter - Sammi Cleaning LPN - 05/19/2023 7:10 PM EST Message left on secure voicemail. Sammi Cleaning LPN * Telephone Encounter - Keara Shin MD - 05/19/2023 6:45 PM EST Okay verbal order * Telephone Encounter - Bing Delgado RN - 05/19/2023 1:33 PM EST Etta- [facility]- reports patient will be discharged today with orders for SN & PT. HH would like to see patient this weekend, and no later than Monday. Requesting verbal order to follow for C. Please phone Etta with verbal: [phone] [facility] Discharge summary Author Frankie Galindo [facility] April 04, 2023 10:02am Note Date/Time April 04, 2023 9 :21am [facility] Medical Records Department [address] [place] [address] Transfer to [facility] MR#: [id number] Acct: [id number] Name: PEDRO PABLO SIERRA Rep #:[id number] : 1950 72 From: Frankie Galindo MD PCP: Dr. Daija Morton MD Status:ADM I N Certification of patient admission REQUIRED AT TIME OF ADMISSION. I CERTIFY THAT POST-HOSPITAL ECF SERVICES ARE REQUIRED TO BE GIVEN ON AN IN-PATIENT BASIS BECAUSE OF THE ABOVE NAMED PATIENT'S NEED FOR RESIDENTIAL CARE ON A CONTINUING BASIS FOR THE CONDITION(S) FOR WHICH HE/SHE WAS RECEIVING IN-PATIENT HOSPITAL SERVICES PRIOR TO HIS/HER TRANSFER TO THE ECF. 04/04/23 1002<Electronically signed by Frankie Galindo MD> Diet Diet Order/Speech Therapy: 03/31/23 10:08 Diet: Regular - General Type of Dietary Supplement:: Ensure Compact Is pt able to select menu?: Yes Diet Comments: chocolate ensure compact tid w/ meals Wound(s) generalized: Wound Type: scabbed areas throughout Therapies Physical Therapy: Eval and Treat Occupational Therapy: Eval and Treat Problem/Diagnosis (1) UTI (urinary tract infection): Status: Acute Code(s): N39.0 - Urinary tract infection, site not specified (2) Weakness: Status: Acute Code(s): R53.1 - Weakness (3) Chronic respiratory failure with hypoxia: Status: Chronic Code(s): J96.11 - Chronic respiratory failure with hypoxia Comment: Due to COPD Plan Patient is a 72-year-old gentleman admitted with multiple falls and progressive generalized weakness diagnosed with acute cystitis admitted to regular nursing floor 1. Acute cystitis ? Urine culture so far positive for E. coli final identification and sensitivities pending ? 04/02/2023; Patient urine cultures came back positive for ESBL positive E. coli patient was on ceftriaxone discontinued placed on meropenem - 04/03/2023; Consulted ID for dc abx -04/04/2023 patient to be discharged with Ertapemen for 7 days 2. Physical deconditioning with multiple falls - Requested for PT OT eval and social security benefits interviewer to assist with discharge planning 3. Chronic hypoxic respiratory failure ? Secondary to COPD. Patient is on baseline home oxygen 2 L at rest 4. Acute hypertensive emergency ? Resolved 5. GERD ? On PPI 6.Tobacco abuse -Counseled; -Nicotine patch prescribed. 7. Paroxysmal A-fib -Metoprolol continued. Not on anticoagulation which I agree with if patient hasmultiple falls. 8. History of CVA -Stable, Plavix and statins continued. 9. BPH -on home tamsulosin and finasteride 10. DVT prophylaxis ? SC Lovenox Time spent in the patient's overall evaluation,decision-making process, review of diagnostic data, adjustment of management, discussion with other providers, nursing nursing and ancillary staff involved in patient's care documentation, 36minutes. 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 Will provide chocolate ensure compact tid w/ meals for increased nutrition if consumed. Discharge Plan Admission Admit Date/Time: 03/30/23 19:21 Attending Provider: Frankie Galindo Primary Care Provider: Daija Morton Consulting Providers: Fran Cartwright; Celia Toribio; Elton Moore Discharge Orders/Prescriptions Prescriptions: New ertapenem 1 gram Recon Soln 1 g IV Q24 7 Days Qty: 7 0RF Rx Instructions: dx: esbl ecoli uti weekly cmp and cbc while on iv abx. Fax to [phone] sennosides-docusate sodium [Stool Softener-Stimulant Laxat] 8.6-50 mg Tablet 2 tab PO BID PRN PRN (Reason: Constipation) Qty: 0 0RF oxycodone 5 mg Tablet 5 mg PO Q6H PRN PRN (Reason: Pain Score 6-10) 3 Days Qty: 10 0RF Continued tamsulosin 0.4 MG capsule 0.4 mg PO QHS Patient Comments: Prostate and urine finasteride 5 MG tablet 5 mg PO DAILY Patient Comments: prostate atorvastatin 40 MG tablet 40 mg PO QHS Patient Comments: CHOLESTEROL sertraline 50 MG tablet 100 mg PO DAILY Patient Comments: depression mirtazapine 15 MG tablet 15 mg PO QHS clopidogrel 75 MG tablet 75 mg PO DAILY carbamazepine 200 MG tablet 200 mg PO Q12H Patient Comments: face pain losartan 100 mg tablet 100 mg PO DAILY pantoprazole 40 mg tablet,delayed release (DR/EC) 40 mg PO DAILY nifedipine 90 mg tablet extended release 90 mg PO DAILY acetaminophen [Tylenol] 325 mg Tablet 650 mg PO Q6H PRN PRN (Reason: Pain 1-10 Or Fever) Qty: 0 0RF ferrous sulfate [FeroSul] 325 mg (65 mg iron) Tablet 325 mg PO BID Qty: 1 0RF nicotine 21 mg/24 hr Patch 24 Hour 21 mg transdermal DAILY Qty: 0 0RF alendronate 70 mg tablet 70 mg PO QWEEK Qty: 1 0RF metoprolol tartrate 25 mg tablet 25 mg PO DAILY albuterol sulfate 90 mcg/actuation HFA aerosol inhaler 1 puff INHALATION Q8H Discontinued hydrocodone-acetaminophen [hydrocodone-acetaminophen] 5-325 mg tablet 1 tab PO Q6H PRN PRN (Reason: Pain) 3 Days Qty: 10 0RF Referrals / Follow Up: Daija Morton MD [Primary Care Provider] - Within 2 Weeks Disposition Disposition (needs filled in before D/C Order can be placed): [facility] (1) UTI (urinary tract infection) Qualifiers: Urinary tract infection type: acute cystitis Hematuria presence: without hematuria Qualified Code(s): N30.00 - Acute cystitis without hematuria 04/04/23 1002 <Electronically signed by Frankie Galindo MD> Cosigner Signature (if applicable): CC: Dr. Daija Morton MD; Dr. Fran Cartwright MD; Dr. Celia Toribio MD; Dr. Elton Moore MD ~ [facility] Work Phone: 1(995) 940-300210-17-2023 Progress note Author Frankie Galindo [facility] April 04, 2023 9:21am Note Date/Time April 04, 2023 7 :31am [facility] Medical Records Department [address] [place] [address] Progress Note - Hospitalist 04/04/23 0731 MR#: [id number] Acct: [id number] Name: ARIEL SIERRAJAYY Pierce Rep #:[id number] : 1950 72 From: Frankie Galindo MD PCP: Dr. Daija Morton MD Status:ADM I N Location: [place] [address]-1 Reason for Visit Reason for Visit: Diagnoses Chronic respiratory failure with hypoxia (03/30/23) Acute cystitis without hematuria (03/30/23) Urinary tract infection, site not specified (03/30/23) Weakness (03/30/23) Subjective Subjective Patient was seen in consultation by infectious disease antibiotics for dischargerecommended. We will proceed to arrange for discharge Objective Data Objective Data Vital Signs: Vital Signs Temp Pulse Resp BP Pulse Ox O2 Del Method O2 Flow Rate 97.8 F 74 16 183/83 H 95 Room Air 2 04/04/23 05:13 04/04/23 05:13 04/04/23 05:13 04/04/23 05:13 04/04/23 06:59 04/04/23 06:59 04/03/23 15:53 Oxygen Flow Rate (L/min) 2 Oxygen Delivery Method Room Air Weight: 63 kg Body Mass Index (BMI) 20.5 Intake & Output: Intake and Output for Last 24 Hours 04/02/23 04/03/23 04/04/23 23:59 23:59 23:59 Intake Total 356.46 / 481.46 645 / 945 500 / 500 Balance 356.46 / 481.46 645 / 945 500 / 500 Lab / Micro Data 04/04/23 06:05 04/04/23 06:05 Labs: Laboratory Results - last 24 hr 04/04/23 06:05: WBC 6.3, RBC 4.82, Hgb 15.1, Hct 46.6, MCV 96.7 H, MCH 31.3, MCHC 32.4, RDW Std Deviation 48.9 H, RDW Coeff of Aly 13.6, Plt Count 379, MPV 9.3, Immature Gran % (Auto) 1.300 H, Neut % (Auto) 64.4, Lymph % (Auto) 23.6, Phelps % (Auto) 6.3, Eos % (Auto) 3.3, Baso % (Auto) 1.1 H, Absolute Neuts (auto) 4.1, Absolute Lymphs (auto) 1.49, Nucleated RBC % 0, Sodium 136, Potassium 3.9, Chloride 103, Carbon Dioxide 29.0, Anion Gap 4 L, BUN 26 H, Creatinine 1.28, Estim Creat Clear Calc 45.80, Est GFR (MDRD) Af Amer 71, Est GFR (MDRD) Non-Af 58 L, BUN/Creatinine Ratio 20.3 H, Glucose 101, Calcium 9.7 Micro: Microbiology 03/30/23 17:04 Urine, Clean Catch Urine Culture - Final ESBL Escherichia coli 03/30/23 20:00 Blood Culture (Wb) - Anticubital Right Blood Culture - Preliminary No growth in 48 hours. 03/30/23 20:18 Blood Culture (Wb) - Anticubital Right Blood Culture - Preliminary No growth in 48 hours. Physical Exam Narrative General: Alert, oriented, no apparent distress HEENT: Atraumatic, normocephalic Eyes: Anicteric, normal conjunctiva, extraocular movements grossly intact Neck: Supple Respiratory: Clear to auscultation bilaterally, normal respiratory effort Cardiovascular: Regular rate GI: Soft, nontender, nondistended Extremities: No edema Musculoskeletal: Moving all extremities Neuro: No overt focal neurological deficits Skin: Patient has scattered bruising Psych: Cooperative Assessment & Plan Assessment/Plan (1) UTI (urinary tract infection): QUALIFIERS: Hematuria presence: without hematuria Urinary tract infection type: acute cystitis Qualified Code(s): N30.00 - Acute cystitis without hematuria (2) Weakness: (3) Chronic respiratory failure with hypoxia: PLAN: Plan Patient is a 72-year-old gentleman admitted with multiple falls and progressive generalized weakness diagnosed with acute cystitis admitted to regular nursing floor 1. Acute cystitis ? Urine culture so far positive for E. coli final identification and sensitivities pending ? 04/02/2023; Patient urine cultures came back positive for ESBL positive E. coli patient was on ceftriaxone discontinued placed on meropenem - 04/03/2023; Consulted ID for dc abx -04/04/2023 patient to be discharged with Ertapemen for 7 days 2. Physical deconditioning with multiple falls - Requested for PT OT eval and social security benefits interviewer to assist with discharge planning 3. Chronic hypoxic respiratory failure ? Secondary to COPD. Patient is on baseline home oxygen 2 L at rest 4. Acute hypertensive emergency ? Resolved 5. GERD ? On PPI 6.Tobacco abuse -Counseled; -Nicotine patch prescribed. 7. Paroxysmal A-fib -Metoprolol continued. Not on anticoagulation which I agree with if patient hasmultiple falls. 8. History of CVA -Stable, Plavix and statins continued. 9. BPH -on home tamsulosin and finasteride 10. DVT prophylaxis ? SC Lovenox Time spent in the patient's overall evaluation,decision-making process, review of diagnostic data, adjustment of management, discussion with other providers, nursing nursing and ancillary staff involved in patient's care documentation, 36minutes. Charges/Coding Visit Charges Inpatient E&M: 85600 Subs Hosp L2 04/04/23 0921 <Electronically signed by Frankie Galindo MD> Cosigner Signature (if applicable): CC: ~ Signed [facility] Work Phone: 1(302) 289-359210-16-2023 Consult note Author Elton Moore [facility] April 03, 2023 5:06pm Note Date/Time April 03, 2023 5 :04pm [facility] Medical Records Department [address] [place] [address] Consultation - Infectious Dx 04/03/23 1703 MR#: [id number] Acct: [id number] Name: PEDRO PABLO SIERRA Rep #:[id number] : 1950 72 From: Elton pierce MD PCP: Dr. Daija Morton MD Status:ADM I N [facility] Assessment & Plan Assessment/Plan (1) Acute UTI: PLAN: esbl ecoli uti - on meropenem. Will order midline and 7 more days ertapenem with weekly labs. Timothy ceja, thank youi HPI Consult Data Date of Consult: 04/03/23 HPI Narrative Reason for Consultation: uti HPI Narrative: PEDRO PABLO SIERRA, is a 72 M who presented with several days weakness, falls, dysuria, fatigue. Admitted on ceftriaxone, now on meropenem. Dysuria improved, no fever here. No abd pain. Full ROS performed and neg except as noted above. [facility] Medical History Asthma Atrial fibrillation Chronic pain COPD (chronic obstructive pulmonary disease) COPD (chronic obstructive pulmonary disease) Depression Diabetes Falls frequently High cholesterol Hypertension Irregular heart beat Kidney stones On home oxygen therapy Pancreatitis Seizures Sleep apnea Smoker Stroke/cerebrovascular accident Home Medications tamsulosin 0.4 mg capsule 0.4 mg PO QHS bph 01/26/14 [History Last Taken 03/28/23] finasteride 5 mg tablet 5 mg PO DAILY prostate 11/14/14 [History Last Taken 03/28/23] atorvastatin 40 mg tablet 40 mg PO QHS Cholesterol 09/23/15 [History Last Taken 03/28/23] sertraline 50 mg tablet 100 mg PO DAILY mood stabilizer 12/02/15 [History Last Taken 03/28/23] mirtazapine 15 mg tablet 15 mg PO QHS anti depressant 08/16/19 [History Last Taken 03/28/23] clopidogrel 75 mg tablet 75 mg PO DAILY blood thinner 10/25/19 [History Last Taken 03/28/23] carbamazepine 200 mg tablet 200 mg PO Q12H Check with primary doctor 10/26/19 [History Last Taken 03/28/23] losartan 100 mg tablet 100 mg PO DAILY Blood pressure 08/19/21 [History Last Taken 03/28/23] pantoprazole 40 mg tablet,delayed release 40 mg PO DAILY GERD 08/19/21 [History Last Taken 03/28/23] nifedipine 90 mg tablet,extended release 90 mg PO DAILY 11/25/21 [History Last Taken 03/28/23] acetaminophen 325 mg tablet (Tylenol) 650 mg (2 x 325 mg) PO Q6H PRN PRN Pain 1- 10 Or Fever #0 tabs 11/30/21 [Rx Last Taken 03/28/23] alendronate 70 mg tablet 70 mg PO QWEEK #1 TAB 11/30/21 [Rx Last Taken 03/28/23] ferrous sulfate 325 mg (65 mg iron) tablet (FeroSul) 325 mg PO BID #1 TAB 11/30/21 [Rx Last Taken 03/28/23] nicotine 21 mg/24 hr daily transdermal patch 21 mg transdermal DAILY #0 ea 11/30/21 [Rx Last Taken 03/28/23] hydrocodone-acetaminophen 5-325mg 5mg-325mg 1 tab PO Q6H PRN PRN Pain 3 days #10TABLETS 02/25/23 [Rx Last Taken 03/28/23] albuterol sulfate 90 mcg/actuation aerosol inhaler 1 puff inhalation Q8H 03/30/23 [History Last Taken 03/28/23] metoprolol tartrate 25 mg tablet 25 mg PO DAILY 03/30/23 [History Last Taken 03/28/23] ertapenem 1 gram solution for injection 1 g IV Q24 7 days #7 ea 04/03/23 [Rx Last Taken Unknown] Allergy/AdvReac Type Severity Reaction Status Date / Time No Known Allergies Allergy Verified 03/30/23 14:14 Family History Other Heart disease Surgical History History of appendectomy S/P arterial stent Social History household members: none Smoking Status: Current every day smoker tobacco type: cigarettes alcohol intake: former details: Former alcoholic Physical Exam Const alert and no apparent distress General Appearance: cooperative HEENT normocephalic and head/scalp atraumatic Eyes PERRL and EOMs intact bilaterally Neck supple and No nodes Resp normal air movement and clear to auscultation bilaterally Cardio regular rate and regular rhythm GI soft to palpation, non-tender and non-distended Skin no rashes or lesions noted Neuro CN's II-XII intact bilaterally Lab / Micro Data Attestation: I reviewed the patient's lab results. 04/03/23 05:30 04/03/23 05:30 Labs: Laboratory Results - last 24 hr 04/03/23 05:30: WBC 5.4, RBC 4.23 L, Hgb 13.6, Hct 40.8, MCV 96.5 H, MCH 32.2 H,MCHC 33.3, RDW Std Deviation 48.4 H, RDW Coeff of Aly 13.6, Plt Count 357, MPV 9.7, Immature Gran % (Auto) 0.700, Neut % (Auto) 63.8, Lymph % (Auto) 22.5, Phelps% (Auto) 7.6, Eos % (Auto) 3.9, Baso % (Auto) 1.5 H, Absolute Neuts (auto) 3.5, Absolute Lymphs (auto) 1.22, Nucleated RBC % 0, Sodium 138, Potassium 3.6, Chloride 104, Carbon Dioxide 28.0, Anion Gap 6, BUN 21 H, Creatinine 1.20, EstimCreat Clear Calc 48.85, Est GFR (MDRD) Af Amer 76, Est GFR (MDRD) Non-Af 63, BUN/Creatinine Ratio 17.5, Glucose 92, Calcium 9.3 Micro: Microbiology 03/30/23 17:04 Urine, Clean Catch Urine Culture - Final ESBL Escherichia coli 04/03/23 1706 <Electronically signed by Elton Moore MD> Cosigner Signature (if applicable): CC: Dr. Daija Morton MD; Dr. Fran Cartwright MD; Dr. Celia Toribio MD; Dr. Elton Moore MD~ Signed [facility] Work Phone: 1(423) 472-167010-16-2023 Progress note Author Frankie Galindo [facility] April 03, 2023 10:50am Note Date/Time April 03, 2023 1 0:51am [facility] Medical Records Department [address] [place] [address] Progress Note - Hospitalist 04/03/23 1046 MR#: [id number] Acct: [id number] Name: PEDRO PABLO SIERRA Rep #:[id number] : 1950 72 From: Frankie Galindo MD PCP: Dr. Daija Morton MD Status:ADM I N Location: [address] Reason for Visit Reason for Visit: Diagnoses Chronic respiratory failure with hypoxia (03/30/23) Acute cystitis without hematuria (03/30/23) Weakness (03/30/23) Subjective Subjective Complains of feeling weak Objective Data Objective Data Vital Signs: Vital Signs Temp Pulse Resp BP Pulse Ox O2 Del Method O2 Flow Rate 97.6 F L 76 16 156/74 H 88 Room Air 2 04/03/23 09:33 04/03/23 09:33 04/03/23 09:33 04/03/23 09:33 04/03/23 09:34 04/03/23 09:34 04/03/23 09:33 Oxygen Flow Rate (L/min) 2 Oxygen Delivery Method Room Air Weight: 63 kg Body Mass Index (BMI) 20.5 Intake & Output: Intake and Output for Last 24 Hours 04/01/23 04/02/23 04/03/23 23:59 23:59 23:59 Intake Total 1150 / 1150 356.46 / 481.46 185 / 185 Output Total 950 / 950 Balance 200 / 200 356.46 / 481.46 185 / 185 Lab / Micro Data 04/03/23 05:30 04/03/23 05:30 Labs: Laboratory Results - last 24 hr 04/03/23 05:30: WBC 5.4, RBC 4.23 L, Hgb 13.6, Hct 40.8, MCV 96.5 H, MCH 32.2 H,MCHC 33.3, RDW Std Deviation 48.4 H, RDW Coeff of Aly 13.6, Plt Count 357, MPV 9.7, Immature Gran % (Auto) 0.700, Neut % (Auto) 63.8, Lymph % (Auto) 22.5, Phelps% (Auto) 7.6, Eos % (Auto) 3.9, Baso % (Auto) 1.5 H, Absolute Neuts (auto) 3.5, Absolute Lymphs (auto) 1.22, Nucleated RBC % 0, Sodium 138, Potassium 3.6, Chloride 104, Carbon Dioxide 28.0, Anion Gap 6, BUN 21 H, Creatinine 1.20, EstimCreat Clear Calc 48.85, Est GFR (MDRD) Af Amer 76, Est GFR (MDRD) Non-Af 63, BUN/Creatinine Ratio 17.5, Glucose 92, Calcium 9.3 Micro: Microbiology 03/30/23 17:04 Urine, Clean Catch Urine Culture - Final ESBL Escherichia coli 03/30/23 20:00 Blood Culture (Wb) - Anticubital Right Blood Culture - Preliminary No growth in 48 hours. 03/30/23 20:18 Blood Culture (Wb) - Anticubital Right Blood Culture - Preliminary No growth in 48 hours. Physical Exam Narrative General: Alert, oriented, no apparent distress HEENT: Atraumatic, normocephalic Eyes: Anicteric, normal conjunctiva, extraocular movements grossly intact Neck: Supple Respiratory: Clear to auscultation bilaterally, normal respiratory effort Cardiovascular: Regular rate GI: Soft, nontender, nondistended Extremities: No edema Musculoskeletal: Moving all extremities Neuro: No overt focal neurological deficits Skin: Patient has scattered bruising Psych: Cooperative Assessment & Plan Assessment/Plan (1) UTI (urinary tract infection): QUALIFIERS: Urinary tract infection type: acute cystitis Hematuria presence: without hematuria Qualified Code(s): N30.00 - Acute cystitis without hematuria (2) Weakness: (3) Chronic respiratory failure with hypoxia: PLAN: Plan Patient is a 72-year-old gentleman admitted with multiple falls and progressive generalized weakness diagnosed with acute cystitis admitted to regular nursing floor 1. Acute cystitis ? Urine culture so far positive for E. coli final identification and sensitivities pending ? 04/02/2023; Patient urine cultures came back positive for ESBL positive E. coli patient was on ceftriaxone discontinued placed on meropenem - 04/03/2023; Consulted ID for dc abx 2. Physical deconditioning with multiple falls - Requested for PT OT eval and social security benefits interviewer to assist with discharge planning 3. Chronic hypoxic respiratory failure ? Secondary to COPD. Patient is on baseline home oxygen 2 L at rest 4. Acute hypertensive emergency ? Resolved 5. GERD ? On PPI 6.Tobacco abuse -Counseled; -Nicotine patch prescribed. 7. Paroxysmal A-fib -Metoprolol continued. Not on anticoagulation which I agree with if patient hasmultiple falls. 8. History of CVA -Stable, Plavix and statins continued. 9. BPH -on home tamsulosin and finasteride 10. DVT prophylaxis ? SC Lovenox Time spent in the patient's overall evaluation,decision-making process, review of diagnostic data, adjustment of management, discussion with other providers, nursing nursing and ancillary staff involved in patient's care documentation, 36minutes. Charges/Coding Visit Charges Inpatient E&M: 94963 Subs Hosp L2 04/03/23 1050 <Electronically signed by Frankie Galindo MD> Cosigner Signature (if applicable): CC: ~ Signed [facility] Work Phone: 1(290) 918-564910-15-2023 Progress note Author Frankie Galindo [facility] April 02, 2023 9:12am Note Date/Time April 02, 2023 7 :35am [facility] Medical Records Department [address] [place] [address] Progress Note - Hospitalist 04/02/23 0735 MR#: [id number] Acct: [id number] Name: PEDRO PABLO SIERRA Shannan Rep #:[id number] : 1950 72 From: Frankie Galindo MD PCP: Dr. Daija Morton MD Status:ADM I N Location: [place] [address] Reason for Visit Reason for Visit: Diagnoses Chronic respiratory failure with hypoxia (03/30/23) Acute cystitis without hematuria (03/30/23) Weakness (03/30/23) Subjective Subjective Patient urine cultures came back positive for ESBL positive E. coli patient was on ceftriaxone discontinued placed on meropenem Objective Data Objective Data Vital Signs: Vital Signs Temp Pulse Resp BP Pulse Ox O2 Del Method O2 Flow Rate 97.6 F L 60 14 143/68 H 93 Nasal Cannula 2 04/02/23 02:45 04/02/23 07:08 04/02/23 07:08 04/02/23 02:45 04/02/23 07:08 04/02/23 07:08 04/02/23 07:08 Oxygen Flow Rate (L/min) 2 Oxygen Delivery Method Nasal Cannula Weight: 63 kg Body Mass Index (BMI) 20.5 Intake & Output: Intake and Output for Last 24 Hours 03/31/23 04/01/23 04/02/23 23:59 23:59 23:59 Intake Total 400 / 400 1150 / 1150 176.46 / 176.46 Output Total 550 / 550 950 / 950 Balance -150 / -150 200 / 200 176.46 / 176.46 Lab / Micro Data 04/02/23 05:07 04/02/23 05:07 Labs: Laboratory Results - last 24 hr 04/02/23 05:07: WBC 4.3 L, RBC 3.96 L, Hgb 12.7 L, Hct 38.8 L, MCV 98.0 H, MCH 32.1 H, MCHC 32.7, RDW Std Deviation 50.4 H, RDW Coeff of Aly 13.9, Plt Count 302, MPV 9.8, Immature Gran % (Auto) 0.900, Neut % (Auto) 58.6, Lymph % (Auto) 23.5, Phelps % (Auto) 11.2 H, Eos % (Auto) 4.4, Baso % (Auto) 1.4 H, Absolute Neuts (auto) 2.5, Absolute Lymphs (auto) 1.01, Nucleated RBC % 0, Sodium 140, Potassium 3.7, Chloride 107, Carbon Dioxide 27.0, Anion Gap 6, BUN 20 H, Creatinine 1.23, Estim Creat Clear Calc 47.66, Est GFR (MDRD) Af Amer 74, Est GFR (MDRD) Non-Af 61, BUN/Creatinine Ratio 16.3, Glucose 91, Calcium 8.8, Phosphorus 2.6, Magnesium 2.0 Micro: Microbiology 03/30/23 17:04 Urine, Clean Catch Urine Culture - Preliminary ESBL Escherichia coli Physical Exam Narrative General: Alert, oriented, no apparent distress HEENT: Atraumatic, normocephalic Eyes: Anicteric, normal conjunctiva, extraocular movements grossly intact Neck: Supple Respiratory: Clear to auscultation bilaterally, normal respiratory effort Cardiovascular: Regular rate GI: Soft, nontender, nondistended Extremities: No edema Musculoskeletal: Moving all extremities Neuro: No overt focal neurological deficits Skin: Patient has scattered bruising Psych: Cooperative Assessment & Plan Assessment/Plan (1) UTI (urinary tract infection): QUALIFIERS: Hematuria presence: without hematuria Urinary tract infection type: acute cystitis Qualified Code(s): N30.00 - Acute cystitis without hematuria (2) Weakness: (3) Chronic respiratory failure with hypoxia: PLAN: Plan Patient is a 72-year-old gentleman admitted with multiple falls and progressive generalized weakness diagnosed with acute cystitis admitted to regular nursing floor 1. Acute cystitis ? Urine culture so far positive for E. coli final identification and sensitivities pending ? 04/02/2023; Patient urine cultures came back positive for ESBL positive E. coli patient was on ceftriaxone discontinued placed on meropenem 2. Physical deconditioning with multiple falls - Requested for PT OT eval and social security benefits interviewer to assist with discharge planning 3. Chronic hypoxic respiratory failure ? Secondary to COPD. Patient is on baseline home oxygen 2 L at rest 4. Acute hypertensive emergency ? Resolved 5. GERD ? On PPI 6.Tobacco abuse -Counseled; -Nicotine patch prescribed. 7. Paroxysmal A-fib -Metoprolol continued. Not on anticoagulation which I agree with if patient hasmultiple falls. 8. History of CVA -Stable, Plavix and statins continued. 9. BPH -on home tamsulosin and finasteride 10. DVT prophylaxis ? SC Lovenox Time spent in the patient's overall evaluation,decision-making process, review of diagnostic data, adjustment of management, discussion with other providers, nursing nursing and ancillary staff involved in patient's care documentation, 36minutes. 04/02/23 0912 <Electronically signed by Frankie Galindo MD> Cosigner Signature (if applicable): CC: ~ Signed [facility] Work Phone: 1(762) 797-308010-15-2023 Progress note Author Fran Vicentetootiepete [facility] April 02, 2023 6:53am Note Date/Time April 02, 2023 6 :53am [facility] Medical Records Department [address] [place] [address] Progress Note 04/02/23 0652 MR#: [id number] Acct: [id number] Name: PEDRO PABLO SIERRA R Rep #:[id number] : 1950 72 From: Fran Cartwright MD PCP: Dr. Daija Morton MD Status:ADM I N Location: [place] [address] Progress Note Urine culture returned positive for ESBL E. coli. E. coli is however sensitive to Zosyn in vitro. Cannot be certain whether E. coli will be sensitive in vivo. Zosyn discontinued. Started on Merrem, adjusted for creatinine clearance. 04/02/23652 <Electronically signed by Fran Cartwright MD> Fran Cartwright MD Cosigner Signature (if applicable): CC: ~ Signed [facility] Work Phone: 1(371) 572-628210-14-2023 Progress note Author [facility] April 01, 2023 10:02am Note Date/Time April 01, 2023 7 :53am [facility] Medical Records Department [address] [place] [address] Progress Note - Hospitalist 04/01/23 0751 MR#: [id number] Acct: [id number] Name: PEDRO PABLO SIERRA R Rep #:[id number] : 1950 72 From: Frankie Galindo MD PCP: Dr. Daija Morton MD Status:ADM I N Location: [place] [address] Reason for Visit Reason for Visit: Diagnoses Chronic respiratory failure with hypoxia (03/30/23) Acute cystitis without hematuria (03/30/23) Weakness (03/30/23) Objective Data Objective Data Vital Signs: Vital Signs Temp Pulse Resp BP Pulse Ox O2 Del Method O2 Flow Rate 98.5 F 73 16 153/84 H 93 Room Air 93 04/01/23 07:43 04/01/23 07:43 04/01/23 07:43 04/01/23 07:43 04/01/23 07:43 04/01/23 07:43 04/01/23 07:43 Oxygen Flow Rate (L/min) 93 Oxygen Delivery Method Room Air Weight: 63 kg Body Mass Index (BMI) 20.5 Intake & Output: Intake and Output for Last 24 Hours 03/30/23 03/31/23 04/01/23 23:59 23:59 23:59 Intake Total 600 / 700 400 / 400 800 / 800 Output Total 100 / 100 550 / 550 700 / 700 Balance 500 / 600 -150 / -150 100 / 100 Lab / Micro Data 04/01/23 05:14 04/01/23 05:14 Labs: Laboratory Results - last 24 hr 03/31/23 06:25: Sodium 139, Potassium 3.0 L, Chloride 101, Carbon Dioxide 28.0, Anion Gap 10, BUN 17, Creatinine 1.18, Estim Creat Clear Calc 50.79, Est GFR (MDRD) Af Amer 78, Est GFR (MDRD) Non-Af 64, BUN/Creatinine Ratio 14.4, Glucose 98, Calcium 8.8 04/01/23 05:14: WBC 6.4, RBC 4.21 L, Hgb 13.7, Hct 40.7, MCV 96.7 H, MCH 32.5 H,MCHC 33.7, RDW Std Deviation 49.7 H, RDW Coeff of Aly 14.1, Plt Count 292, MPV 10.0, Immature Gran % (Auto) 0.600, Neut % (Auto) 70.2 H, Lymph % (Auto) 15.3 L,Phelps % (Auto) 11.0 H, Eos % (Auto) 1.6, Baso % (Auto) 1.3 H, Absolute Neuts (auto) 4.5, Absolute Lymphs (auto) 0.97, Nucleated RBC % 0, Sodium 141, Potassium 3.8, Chloride 107, Carbon Dioxide 27.0, Anion Gap 7, BUN 21 H, Creatinine 1.35 H, Estim Creat Clear Calc 43.43, Est GFR (MDRD) Af Amer 67, Est GFR (MDRD) Non-Af 55 L, BUN/Creatinine Ratio 15.6, Glucose 107 H, Calcium 8.9, TotalBilirubin 0.30, AST 12 L, ALT 21, Alkaline Phosphatase 57, Total Protein 6.5, Albumin 2.6 L, Globulin 3.9, Albumin/Globulin Ratio 0.7 L Micro: Microbiology 03/30/23 17:04 Urine, Clean Catch Urine Culture - Preliminary Presumptive E. coli Physical Exam Narrative General: Alert, oriented, no apparent distress HEENT: Atraumatic, normocephalic Eyes: Anicteric, normal conjunctiva, extraocular movements grossly intact Neck: Supple Respiratory: Clear to auscultation bilaterally, normal respiratory effort Cardiovascular: Regular rate GI: Soft, nontender, nondistended Extremities: No edema Musculoskeletal: Moving all extremities Neuro: No overt focal neurological deficits Skin: Patient has scattered bruising Psych: Cooperative Assessment & Plan Assessment/Plan (1) UTI (urinary tract infection): QUALIFIERS: Hematuria presence: without hematuria Urinary tract infection type: acute cystitis Qualified Code(s): N30.00 - Acute cystitis without hematuria (2) Weakness: (3) Chronic respiratory failure with hypoxia: PLAN: Plan Patient is a 72-year-old gentleman admitted with multiple falls and progressive generalized weakness diagnosed with acute cystitis admitted to regular nursing floor 1. Acute cystitis ? Urine culture so far positive for E. coli final identification and sensitivities pending 2. Physical deconditioning with multiple falls - Requested for PT OT eval and social security benefits interviewer to assist with discharge planning 3. Chronic hypoxic respiratory failure ? Secondary to COPD. Patient is on baseline home oxygen 2 L at rest 4. Acute hypertensive emergency ? Resolved 5. GERD ? On PPI 6.Tobacco abuse -Counseled; -Nicotine patch prescribed. 7. Paroxysmal A-fib -Metoprolol continued. Not on anticoagulation which I agree with if patient hasmultiple falls. 8. History of CVA -Stable, Plavix and statins continued. 9. BPH -on home tamsulosin and finasteride 10. DVT prophylaxis ? SC Lovenox Time spent in the patient's overall evaluation,decision-making process, review of diagnostic data, adjustment of management, discussion with other providers, nursing nursing and ancillary staff involved in patient's care documentation, 36minutes. Charges/Coding Visit Charges Inpatient E&M: 74275 Subs Hosp L2 04/01/23 1002 <Electronically signed by Frankie Galindo MD> Cosigner Signature (if applicable): CC: ~ Signed [facility] Work Phone: 1([phone]) 102-886010-13-2023 Progress note Author Celia Toribio [facility] March 31, 2023 11:24am Note Date/Time March 31, 2023 7 :18am [facility] Medical Records Department [address] [place] [address] Progress Note - Hospitalist 03/31/23711 MR#: [id number] Acct: [id number] Name: PEDRO PABLO SIERRA Rep #:[id number] : 1950 72 From: Celia Toribio MD PCP: Dr. Daija Morton MD Status:ADM I N Location: [place] [address] Reason for Visit Reason for Visit: Diagnoses Chronic respiratory failure with hypoxia (03/30/23) Acute cystitis without hematuria (03/30/23) Weakness (03/30/23) Subjective Subjective Patient still feeling very weak today and not much better from last night yet, continue on IV antibiotics, worked with therapy and said he feels somewhat sore all over and did when he was working with him from his recent falls Objective Data Objective Data Vital Signs: Vital Signs Temp Pulse Resp BP Pulse Ox O2 Del Method 98.0 F 71 16 156/72 H 96 Room Air 03/31/23 05:46 03/31/23 05:46 03/31/23 05:46 03/31/23 05:46 03/31/23 05:46 03/31/23 05:46 Oxygen Delivery Method Room Air Weight: 64.4 kg Body Mass Index (BMI) 20.9 Intake & Output: Intake and Output for Last 24 Hours 03/29/23 03/30/23 03/31/23 23:59 23:59 23:59 Intake Total 600 / 700 300 / 300 Output Total 100 / 100 200 / 200 Balance 500 / 600 100 / 100 Lab / Micro Data 03/31/23 06:25 03/31/23 06:25 Labs: Laboratory Results - last 24 hr 03/30/23 16:03: WBC 10.0, RBC 4.81, Hgb 15.4, Hct 46.9, MCV 97.5 H, MCH 32.0, MCHC 32.8, RDW Std Deviation 50.3 H, RDW Coeff of Aly 13.9, Plt Count 276, MPV 9.8, Immature Gran % (Auto) 0.300, Neut % (Auto) 79.2 H, Lymph % (Auto) 9.3 L, Phelps % (Auto) 10.5 H, Eos % (Auto) 0.0, Baso % (Auto) 0.7, Absolute Neuts (auto)7.9 H, Absolute Lymphs (auto) 0.93, Nucleated RBC % 0, Sodium 134 L, Potassium 4.0, Chloride 99, Carbon Dioxide 31.0, Anion Gap 4 L, BUN 19 H, Creatinine 1.19,Est GFR (MDRD) Af Amer 77, Est GFR (MDRD) Non-Af 64, BUN/Creatinine Ratio 16.0, Glucose 104, Calcium 9.8 03/30/23 17:04: Urine Color Yellow, Urine Clarity Sl. Cloudy, Urine pH 6.0, Ur Specific Olema 1.020, Urine Protein 100 H, Urine Glucose (UA) Normal, Urine Ketones Negative, Urine Occult Blood 50 H, Urine Nitrite Negative, Urine Bilirubin Negative, Urine Urobilinogen Normal, Ur Leukocyte Esterase 500 H, Urine RBC 0 SEEN, Urine WBC 25-50 SEEN, Ur Squamous Epith Cells 0-5 SEEN, Urine Bacteria 3+, Urine Mucus 0 SEEN 03/30/23 20:20: Lactic Acid 1.4 Radiography Diagnostic Testing: Radiology Impression Pelvis X-Ray 03/30/23 15:46 IMPRESSION: Mild multilevel degenerative disease with no acute fracture or subluxation. Electronically Signed: Irish Velásquez MD at 17:14 EDT Reading Location ID and State: [place] / [place] , Service support , Shoulder X-Ray 03/30/23 15:46 IMPRESSION: Mild degenerative disease as described with no acute fracture or subluxation. Electronically Signed: Irish Velásquez MD at 17:15 EDT , Thoracic Spine CT 03/30/23 15:46 IMPRESSION: Diffuse osteopenia/osteoporosis with minimal compression fracture of T11, exact age indeterminate. No retropulsion or extension to the pedicles visualized. Underlying degenerative disease. No subluxation. Electronically Signed: Irish Velásquez MD at 17:12 EDT , Chest X-Ray 03/30/23 16:30 IMPRESSION: No acute cardiac pulmonary disease. Electronically Signed: Irish Velásquez MD at 17:15 EDT , Physical Exam Narrative General: Alert, oriented, no apparent distress HEENT: Atraumatic, normocephalic Eyes: Anicteric, normal conjunctiva, extraocular movements grossly intact Neck: Supple Respiratory: Clear to auscultation bilaterally, normal respiratory effort Cardiovascular: Regular rate GI: Soft, nontender, nondistended Extremities: No edema Musculoskeletal: Moving all extremities Neuro: No overt focal neurological deficits Skin: Patient has scattered bruising Psych: Cooperative Assessment & Plan Assessment/Plan (1) UTI (urinary tract infection): QUALIFIERS: Hematuria presence: without hematuria Urinary tract infection type: acute cystitis Qualified Code(s): N30.00 - Acute cystitis without hematuria (2) Weakness: (3) Chronic respiratory failure with hypoxia: PLAN: Plan #Acute cystitis -Likely contributing to his weakness. -Urinalysis at the emergency department was remarkable for leukocyte esterase of500; urine RBC of 25-50; urine bacteria 3+. Of note urine nitrite was negative.Previous urine culture microbiology was reviewed. -Urine culture on 10/23/2022 was resistant to many organisms including ampicillin; ceftriaxone; Bactrim; and Levaquin. However it was sensitive to ampicillin/sulbactam; gentamicin; imipenem; Macrodantin; Zosyn; and tobramycin. -Patient was started on Zosyn at the emergency department and continued -03/31: Follow cultures, continue antibiotics #Generalized weakness and frequent falls -PT and OT to work with patient. Case management consult. -Impression of chest x-ray by radiology: No acute cardiopulmonary disease. -Thoracic spine CT on presentation with minimal compression fracture of T1 whichis age indeterminate. -Tylenol ordered. As needed oxycodone ordered. -03/31: Seen the day prior to admission as he had fallen and imaging negative for acute process, Re-presented to the ED not because of another fall but just because of the pain and generalized weakness on top of all of his frequent falls. PT/OT, recommendation from PT was SNF placement given his falls and weakness, patient tentatively open to that depending on where he would be able to go and if this is ultimately the recommended course of action #COPD- uses 2L home O2 -Does not seem to be in exacerbation -As needed albuterol ordered. -03/31: At baseline #Hypertensive Urgency -Home blood pressure medication resumed. -Hydralazine ordered. -Trend blood pressures -03/31: Decrease significantly, query compliance with home medications, will adjust medications #GERD -Continue PPI #Tobacco abuse -Counseled -Nicotine patch prescribed. #Paroxysmal A-fib -Metoprolol continued. Not on anticoagulation which I agree with if patient hasmultiple falls. #History of CVA -Stable -Plavix continued. -statin #BPH -on home tamsulosin and finasteride #DVT prophylaxis SCDs ordered Time spent in the patient's overall evaluation,decision-making process, review of diagnostic data, adjustment of management, discussion with other providers, nursing nursing and ancillary staff involved in patient's care documentation, 36minutes. Charges/Coding Visit Charges Inpatient E&M: 08973 Subs Hosp L2 03/31/23 1124 <Electronically signed by Celia Toribio MD> Cosigner Signature (if applicable): CC: ~ Signed [facility] Work Phone: 1(119) 800-728810-12-2023 Discharge summary Author Huber Alvarado [facility] March 30, 2023 8:31pm Note Date/Time March 30, 2023 3 :51pm [facility] Medical Records Department [address] [place] [address] Emergency Department Summary 03/30/23 MR#: [id number] Acct: [id number] Name: PEDRO PABLO SIERRA Rep #:[id number] : 1950 72 From: Huber Alvarado MD PCP: Dr. Daija Morton MD Status:ADM I N Location: [place] [address] HPI History of Present Illness Chief Complaint: Fall Informant: patient and family Narrative Narrative: Patient presents with falls and multiple areas of pain. This patient falls quite frequently. He states he has been falling for years. He states he has a walker but it does not do much good. However, his sister states that his house is so full of material that you cannot get a walker through it so he does not actually use the walker. He has fallen a little bit more this week than normal but he falls almost every day. He was seen here yesterday for a fall. He has not fallen since and they all agree on that. But he still has areas of pain and his sister was concerned so she had him brought in again. His largest area of complaint is the lower thoracic spine. He also has both shoulders sore. He swears he did not hit his head but they did scan his head yesterday. He is not having neck pain. He denies fevers or chills. He admits that he feels weaker than normal but he thinks it is just due to pain. [facility] Medical History (Updated 03/30/23 @ 20:[address] Huber Alvarado MD) Asthma Atrial fibrillation Chronic pain COPD (chronic obstructive pulmonary disease) COPD (chronic obstructive pulmonary disease) Depression Diabetes Falls frequently High cholesterol Hypertension Irregular heart beat Kidney stones On home oxygen therapy Pancreatitis Seizures Sleep apnea Smoker Stroke/cerebrovascular accident Home Medications tamsulosin 0.4 mg capsule 0.4 mg PO QHS bph 01/26/14 [History Last Taken 03/28/23] finasteride 5 mg tablet 5 mg PO DAILY prostate 11/14/14 [History Last Taken 03/28/23] atorvastatin 40 mg tablet 40 mg PO QHS Cholesterol 09/23/15 [History Last Taken 03/28/23] sertraline 50 mg tablet 100 mg PO DAILY mood stabilizer 12/02/15 [History Last Taken 03/28/23] mirtazapine 15 mg tablet 15 mg PO QHS anti depressant 08/16/19 [History Last Taken 03/28/23] clopidogrel 75 mg tablet 75 mg PO DAILY blood thinner 10/25/19 [History Last Taken 03/28/23] carbamazepine 200 mg tablet 200 mg PO Q12H Check with primary doctor 10/26/19 [History Last Taken 03/28/23] losartan 100 mg tablet 100 mg PO DAILY Blood pressure 08/19/21 [History Last Taken 03/28/23] pantoprazole 40 mg tablet,delayed release 40 mg PO DAILY GERD 08/19/21 [History Last Taken 03/28/23] nifedipine 90 mg tablet,extended release 90 mg PO DAILY 11/25/21 [History Last Taken 03/28/23] acetaminophen 325 mg tablet (Tylenol) 650 mg (2 x 325 mg) PO Q6H PRN PRN Pain 1- 10 Or Fever #0 tabs 11/30/21 [Rx Last Taken 03/28/23] alendronate 70 mg tablet 70 mg PO QWEEK #1 TAB 11/30/21 [Rx Last Taken 03/28/23] ferrous sulfate 325 mg (65 mg iron) tablet (FeroSul) 325 mg PO BID #1 TAB 11/30/21 [Rx Last Taken 03/28/23] nicotine 21 mg/24 hr daily transdermal patch 21 mg transdermal DAILY #0 ea 11/30/21 [Rx Last Taken 03/28/23] hydrocodone-acetaminophen 5-325mg 5mg-325mg 1 tab PO Q6H PRN PRN Pain 3 days #10TABLETS 02/25/23 [Rx Last Taken 03/28/23] albuterol sulfate 90 mcg/actuation aerosol inhaler 1 puff inhalation Q8H 03/30/23 [History Last Taken 03/28/23] metoprolol tartrate 25 mg tablet 25 mg PO DAILY 03/30/23 [History Last Taken 03/28/23] Allergy/AdvReac Type Severity Reaction Status Date / Time No Known Allergies Allergy Verified 03/30/23 14:14 Family History Other Heart disease Surgical History History of appendectomy S/P arterial stent Social History household members: none Smoking Status: Current every day smoker tobacco type: cigarettes alcohol intake: former details: Former 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 ROS ED ROS Narrative A complete review of systems was performed and is negative except as documented in the history of present illness. Some specific details below. Constitutional: No recent fevers or chills. He has some decreased energy. EYE: No discharge, visual complaints, or pain. ENT: No difficulty swallowing. No swelling. No pain. No reflux symptoms. Denieshitting his head in any time. CV: He does admit to some soreness mostly on the right side of his chest but he states that is where he hit it. It hurts to press or move. He is not short of breath though. Respiratory: No coughing or dyspnea. GI: No abdominal pain. No nausea vomiting diarrhea. No blood in stool. : No frequency dysuria or hematuria. Musculoskeletal: See history of present illness. Skin: No rash. Nondiaphoretic. He does have some contusions from fall and people helping him up. Neuro: No focal weakness or numbness. He does have a slight increase in generalized weakness though. Endocrine: No polyuria or polydipsia. EXAM Physical Exam Narrative Exam Narrative: CONSTITUTIONAL: Patient is nontoxic in appearance. The patient looks comfortable. Work of breathing looks normal. HEENT: No notable trauma. Mucous membranes slightly dry. EYES: No conjunctival injection. No proptosis. NECK:No JVD. No stridor. CARDIOVASCULAR: Regular rate. Regular rhythm. No notable murmur. No JVD. RESPIRATORY: No respiratory distress. Breathing is unlabored. No wheezes. He does have some mild tenderness on the right superior lateral chest at the anterior axillary line. But I do not see any bruising there. I do not feel any subcu air. Saturations are normal at 97% on room air showing no hypoxia. GASTROINTESTINAL: Not distended. Bowel sounds are normal. No tenderness. No guarding. No rebound. No palpable mass. No bruit is heard. GENITOURINARY: No tenderness over the bladder. No CVA tenderness. MUSCULOSKELETAL: No deformities. Although both shoulders hurt he moves them both well and there is no sign of physical deformity or dislocation. At times he states the hips hurt at other times he states they do not. But they move pretty well. He states that the knees are sore but they are sore all the time. I do not see any bruising. There is no effusion. There is no tenderness. He moves them well. NEUROLOGICAL: Patient is alert and appropriate. No focal deficit noted. He is at baseline and acts normal per his sister in the room. SKIN: Not diaphoretic or pale. He does have some mild contusions in various spots and what looks like a handprint on his left upper arm where somebody likely helped him up which is what he states. PSYCHIATRIC: Patient is calm. Mood is appropriate. Const Vital Signs: 03/30/23 14:10 03/30/23 15:32 Temperature 96.5 F L Temperature Source Temporal Pulse Rate 87 Respiratory Rate 18 Respiratory Effort Normal Respiratory Depth Normal Respiratory Pattern Normal Blood Pressure 212/86 H Blood Pressure Mean 128 Pulse Ox 97 Oxygen Delivery Method Room Air Room Air MDM MDM MDM Narrative Medical decision making narrative: Patient's CBC shows no acute abnormalities. Patient's electrolytes show no significant abnormalities. Minimally low sodium. Patient's urine does show signs of infection with being cloudy, positive leukocyte esterase, 3+ bacteria and positive white cells. I looked at prior cultures. He did have some resistance. But he was sensitive to Zosyn so he wasstarted on this. I have added lactate and urine cultures as well as blood culture Lactic acid level is pending. My independent interpretation of the 4 view x-ray of his right shoulder is negative for acute fracture consistent with final reading. My independent interpretation of the patient's single view pelvis x-ray shows DJD but no acute fracture. This is consistent with final reading. Single view chest x-ray my independent interpretation shows no acute process andthis is also consistent with final reading. CT scan of his thoracic spine did note a very slight T11 compression fracture but it was uncertain age. He does have pain near this area but is actually a little bit higher in his back. But in either case this would not require acute treatment. We attempted to ambulate the patient. He was too weak to walk. He was close tofalling just standing on the edge of the bed. This is evidently much weaker andmore unstable than he normally is. Case is discussed with hospitalist and he will be admitted. His family is going to try to clean out his house somewhat while he is in the hospital so he actually has room to move around and use a walker in his house. Lab Data Attestation: I reviewed the patient's lab results. Labs: Laboratory Results - last 24 hr 03/30/23 03/30/23 16:03 17:04 WBC 10.0 RBC 4.81 Hgb 15.4 Hct 46.9 MCV 97.5 H MCH 32.0 MCHC 32.8 RDW Std Deviation 50.3 H RDW Coeff of Aly 13.9 Plt Count 276 MPV 9.8 Immature Gran % (Auto) 0.300 Neut % (Auto) 79.2 H Lymph % (Auto) 9.3 L Phelps % (Auto) 10.5 H Eos % (Auto) 0.0 Baso % (Auto) 0.7 Absolute Neuts (auto) 7.9 H Absolute Lymphs (auto) 0.93 Nucleated RBC % 0 Sodium 134 L Potassium 4.0 Chloride 99 Carbon Dioxide 31.0 Anion Gap 4 L BUN 19 H Creatinine 1.19 Est GFR (MDRD) Af Amer 77 Est GFR (MDRD) Non-Af 64 BUN/Creatinine Ratio 16.0 Glucose 104 Calcium 9.8 Urine Color Yellow Urine Clarity Sl. Cloudy Urine pH 6.0 Ur Specific Ole[place] 1.020 Urine Protein 100 H Urine Glucose (UA) Normal Urine Ketones Negative Urine Occult Blood 50 H Urine Nitrite Negative Urine Bilirubin Negative Urine Urobilinogen Normal Ur Leukocyte Esterase 500 H Urine RBC 0 SEEN Urine WBC 25-50 SEEN Ur Squamous Epith Cells 0-5 SEEN Urine Bacteria 3+ Urine Mucus 0 SEEN Radiography Diagnostic Testing: Clinical Impression(s) from Imaging Studies Pelvis X-Ray 03/30/23 15:46 IMPRESSION: Mild multilevel degenerative disease with no acute fracture or subluxation. Electronically Signed: Irish Velásquez MD at 17:14 EDT Reading Location ID and State: [facility] / [place] , Service support , Shoulder X-Ray 03/30/23 15:46 IMPRESSION: Mild degenerative disease as described with no acute fracture or subluxation. Electronically Signed: Irish Velásquez MD at 17:15 EDT , Thoracic Spine CT 03/30/23 15:46 IMPRESSION: Diffuse osteopenia/osteoporosis with minimal compression fracture of T11, exact age indeterminate. No retropulsion or extension to the pedicles visualized. Underlying degenerative disease. No subluxation. Electronically Signed: Irish Velásquez MD at 17:12 EDT , Chest X-Ray 03/30/23 16:30 IMPRESSION: No acute cardiac pulmonary disease. Electronically Signed: Irish Velásquez MD at 17:15 EDT , EKG Initial EKG: Comments: My independent interpretation the patient's EKG shows sinus rhythm with occasional PACs. No PVC. Mild baseline variation and nonspecific changes. No acute ST elevation or depression. IN interval, QRS duration and QTc are normal. Discharge Plan Dx/Rx/DC Orders Clinical Impression: Compression fracture of thoracic vertebra, Multiple falls, Acute UTI, Inabilityto walk Disposition Disposition: Acute Care Hospital [facility] What to do if you have Problems For any increased pain, shortness of breath, bleeding, nausea or vomiting, chestpain, or any unexpected problems, contact your Primary Care Provider. Call [facility] ([phone]) or report to the closest Emergency Room. Call 911 if necessary. 03/30/232030 <Electronically signed by Huber Alvarado MD> Cosigner Signature (if applicable): CC: Dr. Daija Morton MD ~ Signed [facility] Work Phone: 1(236) 188-923810-12-2023 History and physical note Author Fran Cartwright [facility] March 30, 2023 8:08pm Note Date/Time March 30, 2023 7 :32pm [facility] Medical Records Department [address] [place] [address] H&P Exam - Hospitalist 03/30/231931 MR#: [id number] Acct: [id number] Name: PEDRO PABLO SIERRA Shannan Rep #:[id number] : 1950 72 From: Fran Cartwright MD PCP: Dr. Daija Morton MD Status:ADM I N Location: [place] [address] HPI - General General Date of Admission: 03/30/23 Date of Service: 03/30/23 Chief Complaint: Weakness HPI Narrative PEDRO PABLO SIERRA, is a 72 M with a significant history of COPD; hyperlipidemia; hypertension; and chronic falls who presents to the emergency department with generalized weakness above his baseline. Of note the day before presentation patient was sent to the emergency department for fall and multiple images were done. Patient was discharged home. On this new day of presentation patient has not fallen but he is too weak to thepoint that he could not walk. Also patient reports of lower back pain. Also, the patient has a burning sensation with urination. [facility] Medical History (Updated 03/30/23 @ 20:[address] Fran Cartwright MD) Asthma Atrial fibrillation Chronic pain COPD (chronic obstructive pulmonary disease) COPD (chronic obstructive pulmonary disease) Depression Diabetes Falls frequently High cholesterol Hypertension Irregular heart beat Kidney stones On home oxygen therapy Pancreatitis Seizures Sleep apnea Smoker Stroke/cerebrovascular accident Home Medications tamsulosin 0.4 mg capsule 0.4 mg PO QHS bph 01/26/14 [History Last Taken 03/28/23] finasteride 5 mg tablet 5 mg PO DAILY prostate 11/14/14 [History Last Taken 03/28/23] atorvastatin 40 mg tablet 40 mg PO QHS Cholesterol 09/23/15 [History Last Taken 03/28/23] sertraline 50 mg tablet 100 mg PO DAILY mood stabilizer 12/02/15 [History Last Taken 03/28/23] mirtazapine 15 mg tablet 15 mg PO QHS anti depressant 08/16/19 [History Last Taken 03/28/23] clopidogrel 75 mg tablet 75 mg PO DAILY blood thinner 10/25/19 [History Last Taken 03/28/23] carbamazepine 200 mg tablet 200 mg PO Q12H Check with primary doctor 10/26/19 [History Last Taken 03/28/23] losartan 100 mg tablet 100 mg PO DAILY Blood pressure 08/19/21 [History Last Taken 03/28/23] pantoprazole 40 mg tablet,delayed release 40 mg PO DAILY GERD 08/19/21 [History Last Taken 03/28/23] nifedipine 90 mg tablet,extended release 90 mg PO DAILY 11/25/21 [History Last Taken 03/28/23] acetaminophen 325 mg tablet (Tylenol) 650 mg (2 x 325 mg) PO Q6H PRN PRN Pain 1- 10 Or Fever #0 tabs 11/30/21 [Rx Last Taken 03/28/23] alendronate 70 mg tablet 70 mg PO QWEEK #1 TAB 11/30/21 [Rx Last Taken 03/28/23] ferrous sulfate 325 mg (65 mg iron) tablet (FeroSul) 325 mg PO BID #1 TAB 11/30/21 [Rx Last Taken 03/28/23] nicotine 21 mg/24 hr daily transdermal patch 21 mg transdermal DAILY #0 ea 11/30/21 [Rx Last Taken 03/28/23] hydrocodone-acetaminophen 5-325mg 5mg-325mg 1 tab PO Q6H PRN PRN Pain 3 days #10TABLETS 02/25/23 [Rx Last Taken 03/28/23] albuterol sulfate 90 mcg/actuation aerosol inhaler 1 puff inhalation Q8H 03/30/23 [History Last Taken 03/28/23] metoprolol tartrate 25 mg tablet 25 mg PO DAILY 03/30/23 [History Last Taken 03/28/23] Allergy/AdvReac Type Severity Reaction Status Date / Time No Known Allergies Allergy Verified 03/30/23 14:14 Family History Other Heart disease Surgical History History of appendectomy S/P arterial stent Social History household members: none Smoking Status: Current every day smoker tobacco type: cigarettes alcohol intake: former details: Former 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 ROS Narrative Pertinent positives and pertinent negatives as noted in HPI. All other systems were reviewed and are negative Vital Signs Vital Signs Vital Signs: 03/30/23 14:10 03/30/23 15:32 Temperature 96.5 F L Temperature Source Temporal Pulse Rate 87 Respiratory Rate 18 Respiratory Effort Normal Respiratory Depth Normal Respiratory Pattern Normal Blood Pressure 212/86 H Blood Pressure Mean 128 Pulse Ox 97 Oxygen Delivery Method Room Air Room Air Physical Exam Narrative Physical exam: General: Well-nourished, well-developed. Head: Normocephalic, atraumatic, no tenderness Eyes: Vision is grossly intact. EOMI ENT, no trauma, moist mucous membranes, no rhinorrhea Neck: Nontender, No thyromegaly. CVS: Regular rate and rhythm. S1-S2 present. No murmur, gallop or rub. Respiratory : clear to auscultation bilaterally, chest wall nontender Abdomen: Soft, nontender, nondistended, normal bowel sounds, no masses : Deferred Back: Nontender, no midline spinal tenderness, deformities, step-offs Extremities: Nontender full range of motion Skin: Normal color, no trauma, abrasions Neuro: Alert, oriented, cranial nerves II through XII grossly intact. Psychiatry: Normal mood. Normal affect. Not depressed. Not anxious. Results Lab / Micro Data 03/30/23 16:03 03/30/23 16:03 Labs: Laboratory Results - last 24 hr 03/30/23 16:03: WBC 10.0, RBC 4.81, Hgb 15.4, Hct 46.9, MCV 97.5 H, MCH 32.0, MCHC 32.8, RDW Std Deviation 50.3 H, RDW Coeff of Aly 13.9, Plt Count 276, MPV 9.8, Immature Gran % (Auto) 0.300, Neut % (Auto) 79.2 H, Lymph % (Auto) 9.3 L, Phelps % (Auto) 10.5 H, Eos % (Auto) 0.0, Baso % (Auto) 0.7, Absolute Neuts (auto)7.9 H, Absolute Lymphs (auto) 0.93, Nucleated RBC % 0, Sodium 134 L, Potassium 4.0, Chloride 99, Carbon Dioxide 31.0, Anion Gap 4 L, BUN 19 H, Creatinine 1.19,Est GFR (MDRD) Af Amer 77, Est GFR (MDRD) Non-Af 64, BUN/Creatinine Ratio 16.0, Glucose 104, Calcium 9.8 03/30/23 17:04: Urine Color Yellow, Urine Clarity Sl. Cloudy, Urine pH 6.0, Ur Specific [place] 1.020, Urine Protein 100 H, Urine Glucose (UA) Normal, Urine Ketones Negative, Urine Occult Blood 50 H, Urine Nitrite Negative, Urine Bilirubin Negative, Urine Urobilinogen Normal, Ur Leukocyte Esterase 500 H, Urine RBC 0 SEEN, Urine WBC 25-50 SEEN, Ur Squamous Epith Cells 0-5 SEEN, Urine Bacteria 3+, Urine Mucus 0 SEEN Radiology Impression Pelvis X-Ray 03/30/23 15:46 IMPRESSION: Mild multilevel degenerative disease with no acute fracture or subluxation. Electronically Signed: Irish Velásquez MD at 17:14 EDT Reading Location ID and State: [place] / [place] , Service support , Shoulder X-Ray 03/30/23 15:46 IMPRESSION: Mild degenerative disease as described with no acute fracture or subluxation. Electronically Signed: Irish Velásquez MD at 17:15 EDT Reading Location ID and State: [email or web address] / [place] , Service support , Thoracic Spine CT 03/30/23 15:46 IMPRESSION: Diffuse osteopenia/osteoporosis with minimal compression fracture of T11, exact age indeterminate. No retropulsion or extension to the pedicles visualized. Underlying degenerative disease. No subluxation. Electronically Signed: Irish Velásquez MD at 17:12 EDT Reading Location ID and State: [email or web address] / [place] , Service support , Chest X-Ray 03/30/23 16:30 IMPRESSION: No acute cardiac pulmonary disease. Electronically Signed: Irish Velásquez MD at 17:15 EDT Reading Location ID and State: [place] / [place] , Service support , Assessment & Plan Assessment/Plan (1) UTI (urinary tract infection): QUALIFIERS: Urinary tract infection type: acute cystitis Hematuria presence: without hematuria Qualified Code(s): N30.00 - Acute cystitis without hematuria (2) Weakness: (3) Chronic respiratory failure with hypoxia: PLAN: Plan Acute cystitis Likely contributing to his weakness. Urinalysis at the emergency department was remarkable for leukocyte esterase of 500; urine RBC of 25-50; urine bacteria 3+. Of note urine nitrite was negative.Previous urine culture microbiology was reviewed. Urine culture on 10/23/2022 was resistant to many organisms including ampicillin; ceftriaxone; Bactrim; and Levaquin. However it was sensitive to ampicillin/sulbactam; gentamicin; imipenem; Macrodantin; Zosyn; and tobramycin. Patient was started on Zosyn at the emergency department and continued Generalized weakness and frequent falls PT and OT to work with patient. Case management consult. Impression of chest x-ray by radiology: No acute cardiopulmonary disease. Independent review of chest x-ray by hospitalist: Agrees with radiology interpretation. Thoracic spine CT on presentation with minimal compression fracture of T1 which is age indeterminate. Tylenol ordered. As needed oxycodone ordered. COPD Does not seem to be in exacerbation As needed albuterol ordered. Hypertensive Urgency Home blood pressure medication resumed.. Hydralazine ordered. Trend blood pressures Tobacco abuse Counseled Nicotine patch prescribed. Paroxysmal A-fib Noted RVR. Metoprolol continued. Not on anticoagulation which I agree with if patient has multiple falls. History of CVA Stable Plavix continued. DVT prophylaxis SCDs ordered Time spent in the patient's overall evaluation,decision-making process, review of diagnostic data, adjustment of management, discussion with other providers, nursing nursing and ancillary staff involved in patient's care documentation, 70minutes. Charges/Coding Visit Charges Inpatient E&M: 19554 Init Hosp L3 03/30/232007 <Electronically signed by Fran Cartwright MD> Cosigner Signature (if applicable): CC: Dr. Daija Morton MD; Dr. Fran Cartwright MD~ Signed [facility] Work Phone: 1(325) 314-683310-12-2023 Discharge summary Author Huber Alvarado [facility] March 30, 2023 8:31pm Note Date/Time March 30, 2023 3 :51pm [facility] Medical Records Department [address] [place] [address] Emergency Department Summary 03/30/23 MR#: [id number] Acct: [id number] Name: PEDRO PABLO SIERRA Rep #:[id number] : 1950 72 From: Huber Alvarado MD PCP: Dr. Daija Morton MD Status:ADM I N Location: [place] [address]-1 HPI History of Present Illness Chief Complaint: Fall Informant: patient and family Narrative Narrative: Patient presents with falls and multiple areas of pain. This patient falls quite frequently. He states he has been falling for years. He states he has a walker but it does not do much good. However, his sister states that his house is so full of material that you cannot get a walker through it so he does not actually use the walker. He has fallen a little bit more this week than normal but he falls almost every day. He was seen here yesterday for a fall. He has not fallen since and they all agree on that. But he still has areas of pain and his sister was concerned so she had him brought in again. His largest area of complaint is the lower thoracic spine. He also has both shoulders sore. He swears he did not hit his head but they did scan his head yesterday. He is not having neck pain. He denies fevers or chills. He admits that he feels weaker than normal but he thinks it is just due to pain. [facility] Medical History (Updated 03/30/23 @ 20:[address] Huber Alvarado MD) Asthma Atrial fibrillation Chronic pain COPD (chronic obstructive pulmonary disease) COPD (chronic obstructive pulmonary disease) Depression Diabetes Falls frequently High cholesterol Hypertension Irregular heart beat Kidney stones On home oxygen therapy Pancreatitis Seizures Sleep apnea Smoker Stroke/cerebrovascular accident Home Medications tamsulosin 0.4 mg capsule 0.4 mg PO QHS bph 01/26/14 [History Last Taken 03/28/23] finasteride 5 mg tablet 5 mg PO DAILY prostate 11/14/14 [History Last Taken 03/28/23] atorvastatin 40 mg tablet 40 mg PO QHS Cholesterol 09/23/15 [History Last Taken 03/28/23] sertraline 50 mg tablet 100 mg PO DAILY mood stabilizer 12/02/15 [History Last Taken 03/28/23] mirtazapine 15 mg tablet 15 mg PO QHS anti depressant 08/16/19 [History Last Taken 03/28/23] clopidogrel 75 mg tablet 75 mg PO DAILY blood thinner 10/25/19 [History Last Taken 03/28/23] carbamazepine 200 mg tablet 200 mg PO Q12H Check with primary doctor 10/26/19 [History Last Taken 03/28/23] losartan 100 mg tablet 100 mg PO DAILY Blood pressure 08/19/21 [History Last Taken 03/28/23] pantoprazole 40 mg tablet,delayed release 40 mg PO DAILY GERD 08/19/21 [History Last Taken 03/28/23] nifedipine 90 mg tablet,extended release 90 mg PO DAILY 11/25/21 [History Last Taken 03/28/23] acetaminophen 325 mg tablet (Tylenol) 650 mg (2 x 325 mg) PO Q6H PRN PRN Pain 1- 10 Or Fever #0 tabs 11/30/21 [Rx Last Taken 03/28/23] alendronate 70 mg tablet 70 mg PO QWEEK #1 TAB 11/30/21 [Rx Last Taken 03/28/23] ferrous sulfate 325 mg (65 mg iron) tablet (FeroSul) 325 mg PO BID #1 TAB 11/30/21 [Rx Last Taken 03/28/23] nicotine 21 mg/24 hr daily transdermal patch 21 mg transdermal DAILY #0 ea 11/30/21 [Rx Last Taken 03/28/23] hydrocodone-acetaminophen 5-325mg 5mg-325mg 1 tab PO Q6H PRN PRN Pain 3 days #10TABLETS 02/25/23 [Rx Last Taken 03/28/23] albuterol sulfate 90 mcg/actuation aerosol inhaler 1 puff inhalation Q8H 03/30/23 [History Last Taken 03/28/23] metoprolol tartrate 25 mg tablet 25 mg PO DAILY 03/30/23 [History Last Taken 03/28/23] Allergy/AdvReac Type Severity Reaction Status Date / Time No Known Allergies Allergy Verified 03/30/23 14:14 Family History Other Heart disease Surgical History History of appendectomy S/P arterial stent Social History household members: none Smoking Status: Current every day smoker tobacco type: cigarettes alcohol intake: former details: Former 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 ROS ED ROS Narrative A complete review of systems was performed and is negative except as documented in the history of present illness. Some specific details below. Constitutional: No recent fevers or chills. He has some decreased energy. EYE: No discharge, visual complaints, or pain. ENT: No difficulty swallowing. No swelling. No pain. No reflux symptoms. Denieshitting his head in any time. CV: He does admit to some soreness mostly on the right side of his chest but he states that is where he hit it. It hurts to press or move. He is not short of breath though. Respiratory: No coughing or dyspnea. GI: No abdominal pain. No nausea vomiting diarrhea. No blood in stool. : No frequency dysuria or hematuria. Musculoskeletal: See history of present illness. Skin: No rash. Nondiaphoretic. He does have some contusions from fall and people helping him up. Neuro: No focal weakness or numbness. He does have a slight increase in generalized weakness though. Endocrine: No polyuria or polydipsia. EXAM Physical Exam Narrative Exam Narrative: CONSTITUTIONAL: Patient is nontoxic in appearance. The patient looks comfortable. Work of breathing looks normal. HEENT: No notable trauma. Mucous membranes slightly dry. EYES: No conjunctival injection. No proptosis. NECK:No JVD. No stridor. CARDIOVASCULAR: Regular rate. Regular rhythm. No notable murmur. No JVD. RESPIRATORY: No respiratory distress. Breathing is unlabored. No wheezes. He does have some mild tenderness on the right superior lateral chest at the anterior axillary line. But I do not see any bruising there. I do not feel any subcu air. Saturations are normal at 97% on room air showing no hypoxia. GASTROINTESTINAL: Not distended. Bowel sounds are normal. No tenderness. No guarding. No rebound. No palpable mass. No bruit is heard. GENITOURINARY: No tenderness over the bladder. No CVA tenderness. MUSCULOSKELETAL: No deformities. Although both shoulders hurt he moves them both well and there is no sign of physical deformity or dislocation. At times he states the hips hurt at other times he states they do not. But they move pretty well. He states that the knees are sore but they are sore all the time. I do not see any bruising. There is no effusion. There is no tenderness. He moves them well. NEUROLOGICAL: Patient is alert and appropriate. No focal deficit noted. He is at baseline and acts normal per his sister in the room. SKIN: Not diaphoretic or pale. He does have some mild contusions in various spots and what looks like a handprint on his left upper arm where somebody likely helped him up which is what he states. PSYCHIATRIC: Patient is calm. Mood is appropriate. Const Vital Signs: 03/30/23 14:10 03/30/23 15:32 Temperature 96.5 F L Temperature Source Temporal Pulse Rate 87 Respiratory Rate 18 Respiratory Effort Normal Respiratory Depth Normal Respiratory Pattern Normal Blood Pressure 212/86 H Blood Pressure Mean 128 Pulse Ox 97 Oxygen Delivery Method Room Air Room Air MDM MDM MDM Narrative Medical decision making narrative: Patient's CBC shows no acute abnormalities. Patient's electrolytes show no significant abnormalities. Minimally low sodium. Patient's urine does show signs of infection with being cloudy, positive leukocyte esterase, 3+ bacteria and positive white cells. I looked at prior cultures. He did have some resistance. But he was sensitive to Zosyn so he wasstarted on this. I have added lactate and urine cultures as well as blood culture Lactic acid level is pending. My independent interpretation of the 4 view x-ray of his right shoulder is negative for acute fracture consistent with final reading. My independent interpretation of the patient's single view pelvis x-ray shows DJD but no acute fracture. This is consistent with final reading. Single view chest x-ray my independent interpretation shows no acute process andthis is also consistent with final reading. CT scan of his thoracic spine did note a very slight T11 compression fracture but it was uncertain age. He does have pain near this area but is actually a little bit higher in his back. But in either case this would not require acute treatment. We attempted to ambulate the patient. He was too weak to walk. He was close tofalling just standing on the edge of the bed. This is evidently much weaker andmore unstable than he normally is. Case is discussed with hospitalist and he will be admitted. His family is going to try to clean out his house somewhat while he is in the hospital so he actually has room to move around and use a walker in his house. Lab Data Attestation: I reviewed the patient's lab results. Labs: Laboratory Results - last 24 hr 03/30/23 03/30/23 16:03 17:04 WBC 10.0 RBC 4.81 Hgb 15.4 Hct 46.9 MCV 97.5 H MCH 32.0 MCHC 32.8 RDW Std Deviation 50.3 H RDW Coeff of Aly 13.9 Plt Count 276 MPV 9.8 Immature Gran % (Auto) 0.300 Neut % (Auto) 79.2 H Lymph % (Auto) 9.3 L Phelps % (Auto) 10.5 H Eos % (Auto) 0.0 Baso % (Auto) 0.7 Absolute Neuts (auto) 7.9 H Absolute Lymphs (auto) 0.93 Nucleated RBC % 0 Sodium 134 L Potassium 4.0 Chloride 99 Carbon Dioxide 31.0 Anion Gap 4 L BUN 19 H Creatinine 1.19 Est GFR (MDRD) Af Amer 77 Est GFR (MDRD) Non-Af 64 BUN/Creatinine Ratio 16.0 Glucose 104 Calcium 9.8 Urine Color Yellow Urine Clarity Sl. Cloudy Urine pH 6.0 Ur Specific [place] 1.020 Urine Protein 100 H Urine Glucose (UA) Normal Urine Ketones Negative Urine Occult Blood 50 H Urine Nitrite Negative Urine Bilirubin Negative Urine Urobilinogen Normal Ur Leukocyte Esterase 500 H Urine RBC 0 SEEN Urine WBC 25-50 SEEN Ur Squamous Epith Cells 0-5 SEEN Urine Bacteria 3+ Urine Mucus 0 SEEN Radiography Diagnostic Testing: Clinical Impression(s) from Imaging Studies Pelvis X-Ray 03/30/23 15:46 IMPRESSION: Mild multilevel degenerative disease with no acute fracture or subluxation. Electronically Signed: Irish Velásquez MD at 17:14 EDT Reading Location ID and State: [place] , Service support , Shoulder X-Ray 03/30/23 15:46 IMPRESSION: Mild degenerative disease as described with no acute fracture or subluxation. Electronically Signed: Irish Velásquez MD at 17:15 EDT , Thoracic Spine CT 03/30/23 15:46 IMPRESSION: Diffuse osteopenia/osteoporosis with minimal compression fracture of T11, exact age indeterminate. No retropulsion or extension to the pedicles visualized. Underlying degenerative disease. No subluxation. Electronically Signed: Irish Velásquez MD at 17:12 EDT Reading Location ID and State: [place] / [place] , Service support , Chest X-Ray 03/30/23 16:30 IMPRESSION: No acute cardiac pulmonary disease. Electronically Signed: Irish Velásquez MD at 17:15 EDT , EKG Initial EKG: Comments: My independent interpretation the patient's EKG shows sinus rhythm with occasional PACs. No PVC. Mild baseline variation and nonspecific changes. No acute ST elevation or depression. IN interval, QRS duration and QTc are normal. Discharge Plan Dx/Rx/DC Orders Clinical Impression: Compression fracture of thoracic vertebra, Multiple falls, Acute UTI, Inabilityto walk Disposition Disposition: Acute Care Hospital [facility] What to do if you have Problems For any increased pain, shortness of breath, bleeding, nausea or vomiting, chestpain, or any unexpected problems, contact your Primary Care Provider. Call [facility] ([phone]) or report to the closest Emergency Room. Call 911 if necessary. 03/30/232030 <Electronically signed by Huber Alvarado MD> Cosigner Signature (if applicable): CC: Dr. Daija Morton MD ~ Signed [facility] Work Phone: 1(903) 360-695109-08-2023 Miscellaneous Notes* Telephone Encounter - Debby Saldana MIKE - 02/24/2023 2:56 PM EDT Patient has been identified by name and date of : Pharmacy phones for refill(s): Requested Prescriptions Pending Prescriptions Disp Refills metoprolol tartrate, short acting, (LOPRESSOR) 25 mg tablet 30 tablet 11 Sig: Take 1 tablet by mouth twice daily. finasteride (PROSCAR) 5 mg tablet 30 tablet 11 Sig: Take 1 tablet by mouth once daily. mirtazapine (REMERON) 15 mg tablet 28 tablet 11 Sig: Take 1 tablet by mouth daily at bedtime. pantoprazole DR (PROTONIX) 40 mg tablet 28 tablet 11 Sig: Take 1 tablet by mouth once daily. tamsulosin (FLOMAX) 0.4 mg 30 capsule 11 Sig: Take 1 capsule by mouth once daily. Date of last office visit in primary care: 08/27/2022, no future appt scheduled told pharmacy he needs to schedule an appt Last 2 Encounter Wt Readings: Date: Wt: 08/27/2022 71.2 kg (157 lb) 03/08/2022 65.8 kg (145 lb) Previous labs/tests for medication: Blood Pressure: BUN (mg/dL) Date Value 02/04/2022 18 04/10/2020 17 Sodium (mmol/L) Date Value 02/04/2022 133 04/10/2020 139 Last 1 Encounter BP Readings: Date: BP: 12/26/2022 207/90 Please advise. Thank you. Debby Saldana LPN [facility] Miscellaneous Notes* Telephone Encounter - Bing Delgado RN - 01/27/2023 2:17 PM EDT Patient has been identified by name and date of : Yes, Provider Selene Date 01-27-23 Time 2:17 pm Pharmacy phones for refill(s): Requested Prescriptions Pending Prescriptions Disp Refills NIFEdipine ER (PROCARDIA XL) 90 mg 24 hr tablet 30 tablet 5 Sig: Take 1 tablet by mouth once daily. Date of last office visit with pcp: 08-27-22. Next appt: none Last 2 Encounter Wt Readings: Date: Wt: 08/27/2022 71.2 kg (157 lb) 03/08/2022 65.8 kg (145 lb) Previous labs/tests for medication: Blood Pressure: BUN (mg/dL) Date Value 02/04/2022 18 04/10/2020 17 Sodium (mmol/L) Date Value 02/04/2022 133 04/10/2020 139 Last 1 Encounter BP Readings: Date: BP: 12/26/2022 207/90 Liver Function: ALT (U/L) Date Value 09/03/2021 29 04/10/2020 19 AST (U/L) Date Value 09/03/2021 15 04/10/2020 17 Please advise. Thank you. Bing Delgado RN [facility] History of Present illness Narrative* Ryan May MD - 12/26/2022 2:07 PM EDT Follow up Visit Mr. Pedro Pablo Sierra is S/P redo iliac stenting, redo profundaplasty, followed by sartorius flap. 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 SUBJECTIVE: Mr. Pedro Pablo Sierra complains of left arm weakness leading to falls. He smokes 1/2 ppd. EXAM: Pulses: Dorsalis Pedal Right: Normal - Left: not palpable Groin is healed. No drainage or sinus. Feet are covered in dirt, but no wounds. Hemoglobin (g/dL) Date Value 02/04/2022 17.6 04/10/2020 11.3 Hematocrit (%) Date Value 02/04/2022 52.4 04/10/2020 39.7 HCT (%) Date Value 09/22/2021 31.7 WBC Date Value 02/04/2022 6.90 k/uL 09/22/2021 6..1 K/uL 04/10/2020 6.91 k/uL Platelet Count (k/uL) Date Value 02/04/2022 326 04/10/2020 302 PLT (K/uL) Date Value 09/22/2021 351 IMPRESSION: PVD s/p ileofemoral bypass and sartorius flap, occluded. HTN PLAN: Follow up with [facility] in 12 months. Continue current medications. I discussed with him that he has few other options for his left leg circulation and that if he developed a wound he would probably need an amputation. Discussed smoking cessation. Germaine May MD [facility] Discharge instructions Patient Education 10/22/2022 22:51:21 Abdominal Pain, Unknown Cause, (Male) Unknown Causes of Abdominal Pain (Male) Based on your visit today, the exact cause of your abdominal pain is not clear. Your exam and testsdon't suggest a dangerous cause at this time. However, the signs of a serious problem may take moretime to appear. Although your evaluation was reassuring today, sometimes early in the course of many conditions, exam and lab tests can appear normal. Therefore, it is important for you to watch for any new symptoms or worsening of your condition. It may not be obvious what caused your symptoms. Pay attention to things that do seem to make your symptoms worse or better and discuss this with your doctor when you follow up. The evaluation of abdominal pain in the emergency department may only require an exam by the doctoror it may include blood, urine or imaging studies, depending on many factors. Sometimes exams and tests can identify a cause but in many cases, a clear cause is not found. Further testing at follow up visits may help to suggest a clear diagnosis. Home care Rest as much as you can until your next exam. Try to avoid any medicines (unless otherwise directed by your doctor), foods, activities, or other factors that may have contributed to your symptoms. Try to eat foods that you know that you have tolerated well in the past. Certain diets may be recommended for some conditions that cause abdominal pain. However, since the cause of your symptoms may not be clear, discuss your diet more with your healthcare provider or specialist for further recommendations. If you have diarrhea, it may help to avoid dairy (lactose) for the time being. A low fat, low fiberdiet can also help. Eating several small meals per day as opposed to 2 or 3 larger meals may help. Avoid dehydration. Make sure to drink plenty of water. Other options include broth, soup, gelatin, sports drinks, or other clear liquids. Watch closely for anything that may make your symptoms worse or better. Pay close attention to symptoms below that may mean your condition is getting worse. Follow-up care Follow up with your healthcare provider if your symptoms are not improving, or as advised. In some cases, you may need more testing. When to seek medical advice Call your healthcare provider right away if any of these occur: Pain is becoming worse You are unable to take your medicines or can't keep water down due to excessive vomiting Swelling of the abdomen Fever of 100.4 F (38 C) or higher, or as directed by your healthcare provider Blood in vomit or bowel movements (dark red or black color) Jaundice (yellow color of eyes and skin) New onset of weakness, dizziness or fainting New onset of chest, arm, back, neck or jaw pain [id number] [employer]. [address] [place] [address], [place] [address]. All rights reserved. This information is not intended as a substitute for professional medical care. Always follow yourhealthcare professional's instructions. Follow Up Care 10/22/2022 19:49:21 With:DAIJA MORTON MD [facility]: [address] [place] [address]- When:2-4 days [facility] 05-06-2023 Note Discharge Instructions Thank you for allowing [facility] to assist you with your healthcare needs. The following is importantdischarge information regarding your hospital visit. Diagnosis from Today's Visit Multiple Complaints What to Do Next Instructions from Your Care Team Please follow-up with the [facility] physicians that did your leg graft regarding the issues with her left graft and leg. No qualifying data available. Post Acute Orders No qualifying data available. You Need to Schedule the Following Appointments Follow Up with DAIJA MORTON MD When Within 2-4 days Where: [address] [place] [address]- Allergies NKA Medications Please ask your primary doctor or pharmacist before taking any other medication not listed, including over the counter drugs, herbal medications, vitamins and or supplements as they may interact withyour home medications. What How Much When Instructions Last Dose New ondansetron (Zofran 8 mg oral tablet) 1 tab(s) by mouth Three (3) times a day Duration: 5 Days Printed Prescription Changed dicyclomine (dicyclomine 10 mg oral capsule) 1 cap by mouth Four (4) times a day Duration: 7 Days Printed Prescription Changed dicyclomine (dicyclomine 20 mg oral tablet) 1 tab(s) by mouth Three (3) times a day before meals Unchanged atorvastatin (atorvastatin 40 mg oral tablet) 1 tab(s) by mouth Daily at bedtime Unchanged carBAMazepine (TEGretol 200 mg oral tablet) 1 tab(s) by mouth Two (2) times a day Unchanged docusate (docusate sodium 100 mg oral tablet) 1 tab(s) by mouth Two (2) times a day as needed for as needed for constipation Unchanged enoxaparin (Lovenox 30 mg/ 0.3 mL injectable solution) Subcutaneous Every 12 hours Unchanged famotidine (Pepcid 20 mg oral tablet) 1 tab(s) by mouth Two (2) times a day Unchanged ferrous sulfate (ferrous sulfate (as elemental iron) 45 mg oral tablet, extended release) 1 tab(s) by mouth Once a day Unchanged finasteride (finasteride 5 mg oral tablet) 1 tab(s) by mouth Once a day Unchanged fluticasone-salmeterol (Advair Diskus 250 mcg-50 mcg inhalation powder) 1 puff(s) by inhalation Two (2) times a day Unchanged gabapentin (gabapentin 300 mg oral tablet) 1 tab by mouth Every day Unchanged gabapentin (gabapentin 600 mg oral tablet) 1 tab(s) by mouth Daily at bedtime Unchanged lidocaine topical (lidocaine 5% topical patch) 1 patch(es) Topical Every 12 hours Unchanged lidocaine topical (Lidoderm 5% topical patch) 1 patch(es) Transdermal Once a day Unchanged metoprolol (metoprolol tartrate 25 mg oral tablet) 0.5 tab(s) by mouth Two (2) times a day Unchanged mirtazapine (mirtazapine 15 mg oral tablet) 1 tab(s) by mouth Daily at bedtime Unchanged omeprazole (NF) (omeprazole 20 mg oral delayed release capsule (NF)) 1 cap by mouth Two (2) times daily before meals Unchanged polyethylene glycol 3350 (MiraLax oral powder for reconstitution) 17 gram(s) by mouth Two (2) times a day Unchanged sertraline (sertraline 50 mg oral tablet) 1 tab(s) by mouth Daily at bedtime Unchanged sulfaSALAzine (sulfaSALAzine 500 mg oral tablet) 2 tab(s) by mouth Four (4) times a day Unchanged tamsulosin (tamsulosin 0.4 mg oral capsule) 1 cap by mouth Once a day Unchanged warfarin 7.5 Milligram by mouth Every Monday / Monday / /Monday and Monday Unchanged warfarin (Coumadin) 10 Milligram by mouth Every Monday Please take this list to your next doctor s visit. Bring all medications you take, including over the counter medications, herbals and other supplements with you to your doctor s visit. Patients and families are reminded to discard old lists and to update any records with all medication providers or retail pharmacies. Education Materials Unknown Causes of Abdominal Pain (Male) Based on your visit today, the exact cause of your abdominal pain is not clear. Your exam and testsdon't suggest a dangerous cause at this time. However, the signs of a serious problem may take moretime to appear. Although your evaluation was reassuring today, sometimes early in the course of many conditions, exam and lab tests can appear normal. Therefore, it is important for you to watch for any new symptoms or worsening of your condition. It may not be obvious what caused your symptoms. Pay attention to things that do seem to make your symptoms worse or better and discuss this with your doctor when you follow up. The evaluation of abdominal pain in the emergency department may only require an exam by the doctoror it may include blood, urine or imaging studies, depending on many factors. Sometimes exams and tests can identify a cause but in many cases, a clear cause is not found. Further testing at follow up visits may help to suggest a clear diagnosis. Home care Rest as much as you can until your next exam. Try to avoid any medicines (unless otherwise directed by your doctor), foods, activities, or other factors that may have contributed to your symptoms. Try to eat foods that you know that you have tolerated well in the past. Certain diets may be recommended for some conditions that cause abdominal pain. However, since the cause of your symptoms may not be clear, discuss your diet more with your healthcare provider or specialist for further recommendations. If you have diarrhea, it may help to avoid dairy (lactose) for the time being. A low fat, low fiberdiet can also help. Eating several small meals per day as opposed to 2 or 3 larger meals may help. Avoid dehydration. Make sure to drink plenty of water. Other options include broth, soup, gelatin, sports drinks, or other clear liquids. Watch closely for anything that may make your symptoms worse or better. Pay close attention to symptoms below that may mean your condition is getting worse. Follow-up care Follow up with your healthcare provider if your symptoms are not improving, or as advised. In some cases, you may need more testing. When to seek medical advice Call your healthcare provider right away if any of these occur: Pain is becoming worse You are unable to take your medicines or can't keep water down due to excessive vomiting Swelling of the abdomen Fever of 100.4 F (38 C) or higher, or as directed by your healthcare provider Blood in vomit or bowel movements (dark red or black color) Jaundice (yellow color of eyes and skin) New onset of weakness, dizziness or fainting New onset of chest, arm, back, neck or jaw pain 4826-5552 [employer]. [address] [place] [address]. All rights reserved. This information is not intended as a substitute for professional medical care. Always follow yourhealthcare professional's instructions. Additional Information VACCINATE! IT SAVES LIVES! Members of the community who have not yet received the COVID-19 vaccine and would like to receive it can visit one of [facility] vaccine clinics. There are many vaccine clinic locations within the [facility]. For locations and available times, please visit www.[email or web address].[place].gov/. It is important to note that some COVID mobile vaccine clinics are held outdoors and may be canceled in rainy or stormy conditions. To learn more about pediatric vaccinations (ages 5-11), we invite you to visit the [facility] webpage. https://www.[email or web address].org/pages/[email or web address]-Xmsvo-Mpjxbswahzx-Rogdrnehdc-[email or web address]-Jiq stions.htmlTo learn more about the COVID-19 vaccine, we invite you to visit the CDC website for a list of frequently asked questions. https://www.cdc.gov/coronavirus/2019-ncov/vaccines/faq.html [place] [employer] Patient Portal Access Instructions: Stay connected with your healthcare team and access your personal medical information anytime with the [facility] Patient Portal. If you would like a full copy of your medical records please contact the [facility] Medical Records Department Monday through Monday between 8a.m. and 4:30p.m. Please follow the directions below to access the portal: 1.Access the email account you provided upon registration to the [facility].2.Look for an invitation email from [facility].3.Open the email and access the invitation link: Accept Invitation to [facility]4.Fill in the required batres to create your account. Sign into [email or web address] with your username and password that you created in the above steps to stay up to date. You can then view a summary of results, a summary of your visits, and the ability to download your summaries to your computer or send the information securely to a physician. Remember that your healthcare information is confidential, so carefully consider who you will allow to register on the [employer] Patient Portal for access to your information. You can also access the [employer] Patient Portal on the [employer] andrew. Simply click on Health Records under [employer] and then click on the [employer] logo. HOW TO SAFELY DISPOSE OF PRESCRIPTION MEDICATIONS Please use one of the following methods to safely dispose of your unused medications. 1.Use a drug disposal kit: the drug disposal pouch allows you to safely discard your old and unuseddrugs. Ask your nurse to give you one when you are discharged.2.Visit a local take-back location: Many local pharmacies and police departments have programs that collect old and unwanted prescriptiondrugs. Call your local pharmacy or go to http://DocDoc.Openplay/7O0Tl0x to find one close to you.3.Make use of household items: Use cat litter or old coffee grounds to dispose medications if other options arenot available. Mix your drugs with these household products, seal them in an airtight container andthrow it into the garbage. Call [facility]: [phone] to be sure your drugs can be disposed of in this way. Some medicines may require a different approach.4.Never flush your medications down the toilet. IF YOU HAVE BEEN PRESCRIBED AN OPIOIDS FOR PAIN If you have been prescribed an opioid (such as hydrocodone, oxycodone or morphine), it is critical to understand the possible side effects and risks of opioid pain medications. Even when taken as directed, opioids can have several side effects including: Tolerance, meaning you might need to take more of a medication for the same pain relief. Nausea, vomiting and/or constipation. Sleepiness, dizziness, dry mouth, confusion, depression or itching. Physical dependence, meaning you have withdrawal symptoms when a medication is stopped ? this can develop within a few days. KNOW YOUR RESPONSIBILITIES It is important to know exactly how much and how often to take the opioid pain medications you are prescribed. Never take opioids in higher amounts or more often than prescribed. Do not combine opioids with alcohol or other drugs that cause drowsiness, such as benzodiazepines, also known as benzos,including diazepam and alprazolam, muscle relaxants or sleep aids. Never sell or share prescriptionopioids. This is illegal. Store opioids in a secure place and out of reach of others (including children, family, friends and visitors). The last page(s) of this document has been signed and retained as a CHART COPY Signatures Patient Education Materials Abdominal Pain, Unknown Cause, (Male) Medication Leaflets My discharge plan and instructions have been reviewed and explained to me and I,PEDRO PABLO SIERRA understand my current condition and have read and understand these discharge instructions. I have received a written copy of the plan/instructions. If I have questions, I am aware that I should contact my doctor. 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 Multiplanar reformatted images are provided for review. Automated exposure control, iterative reconstruction, and/or weight based adjustment of the mA/kV was utilized to reduce the radiation dose to as low as reasonably achievable. COMPARISON: 01/25/2022. HISTORY: ORDERING SYSTEM PROVIDED HISTORY: Partial appendectomy. Reason for Exam: pain FINDINGS: Visualized lung bases are clear. Small hiatal hernia. Stable 1.1 cm hypodense lesion in the right hepatic lobe is unchanged. Again noted is a stable peripherally hyperdense versus enhancing structure with possible internal septations within the gallbladder fundus; correlate with ultrasound results. Spleen is unremarkable. Stable 1.1 cm cystic lesion at the head of pancreas. Unchanged right and left adrenal nodules measuring 2 cm and 3.4 cm respectively. Kidneys are symmetric in enhancement without hydronephrosis. Left kidney is atrophic. There are tiny nonobstructive bilateral renal calculi versus renal vascular calcifications. Urinary bladder is unremarkable. Prostate is mildly enlarged and contains dystrophic calcifications. Small bowel, colon are normal in caliber. Appendix is surgically absent. Mild colonic diverticulosis without diverticulitis. There is no definite bowel wall thickening, intraperitoneal free air or focal fluid collection. No abdominal or pelvic lymphadenopathy. Nonaneurysmal abdominal aorta. 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 Again seen is soft tissue induration/scarring around the common femoral vessels. No acute fracture or destructive osseous lesion. Sclerotic focus within the right iliac bone are stable and likely relate to bone islands. Multiple left rib deformities are new from 01/25/2022 study, although appears to be healing with callus formation. New areas of probable posttraumatic sclerosis of T11 vertebral body, which could be subacute to chronic. Remote L2, L3 compression deformity. Small fat containing right inguinal hernia. IMPRESSION: No acute intra-abdominal findings Bilateral common external iliac artery stent grafts. Age indeterminate occlusion of the left external iliac artery stent graft with distal reconstitution at superficial and deep femoral arteries. Additional findings as above. I have personally reviewed the images of this examination and agree with the resident's findings and interpretation. Interpreted by: Amaury Vargas Preliminary Report By: Belen Medrano Electronically signed By Amaury Vargas Dictated Date: 10/22/2022 9:40:49 PM Prelim Date: 10/22/2022 10:13:55 PM Sign Date: 10/22/2022 10:33:36 PM Ordering Provider: PRIYANKA FRANCO [facility]05-06-2023 Note ORIGINAL EXAMINATION: CT OF THE ABDOMEN AND PELVIS WITH CONTRAST 10/22/2022 9:37 pm TECHNIQUE: CT of the abdomen and pelvis was performed with the administration of intravenous contrast. Multiplanar reformatted images are provided for review. Automated exposure control, iterative reconstruction, and/or weight based adjustment of the mA/kV was utilized to reduce the radiation dose to as low as reasonably achievable. COMPARISON: 01/25/2022. HISTORY: ORDERING SYSTEM PROVIDED HISTORY: Partial appendectomy. Reason for Exam: pain FINDINGS: Visualized lung bases are clear. Small hiatal hernia. Stable 1.1 cm hypodense lesion in the right hepatic lobe is unchanged. Again noted is a stable peripherally hyperdense versus enhancing structure with possible internal septations within the gallbladder fundus; correlate with ultrasound results. Spleen is unremarkable. Stable 1.1 cm cystic lesion at the head of pancreas. Unchanged right and left adrenal nodules measuring 2 cm and 3.4 cm respectively. Kidneys are symmetric in enhancement without hydronephrosis. Left kidney is atrophic. There are tiny nonobstructive bilateral renal calculi versus renal vascular calcifications. Urinary bladder is unremarkable. Prostate is mildly enlarged and contains dystrophic calcifications. Small bowel, colon are normal in caliber. Appendix is surgically absent. Mild colonic diverticulosis without diverticulitis. There is no definite bowel wall thickening, intraperitoneal free air or focal fluid collection. No abdominal or pelvic lymphadenopathy. Nonaneurysmal abdominal aorta. 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 Again seen is soft tissue induration/scarring around the common femoral vessels. No acute fracture or destructive osseous lesion. Sclerotic focus within the right iliac bone are stable and likely relate to bone islands. Multiple left rib deformities are new from 01/25/2022 study, although appears to be healing with callus formation. New areas of probable posttraumatic sclerosis of T11 vertebral body, which could be subacute to chronic. Remote L2, L3 compression deformity. Small fat containing right inguinal hernia. IMPRESSION: No acute intra-abdominal findings Bilateral common external iliac artery stent grafts. Age indeterminate occlusion of the left external iliac artery stent graft with distal reconstitution at superficial and deep femoral arteries. Additional findings as above. I have personally reviewed the images of this examination and agree with the resident's findings and interpretation. Interpreted by: Amaury Vargas Preliminary Report By: Belen Medrano Electronically signed By Amaury Vargas Dictated Date: 10/22/2022 9:40:49 PM Prelim Date: 10/22/2022 10:13:55 PM Sign Date: 10/22/2022 10:33:36 PM Ordering Provider: [facility]04-14-2023 Miscellaneous Notes* Telephone Encounter - Debby Saldana LPN - 09/30/2022 11:11 AM EDT Patient has been identified by name and date of : Patient phones for refill(s): Requested Prescriptions Pending Prescriptions Disp Refills lidocaine (LIDODERM) 5 % 15 Patch 0 Sig: Apply 1 Patch as directed every 24 hours. Remove patch after 12 hours and do not apply new patch for an additional 12 hours. Location: Right chest wall Date of last office visit in primary care: 08/27/2022, no future appt scheduled Last 2 Encounter Wt Readings: Date: Wt: 08/27/2022 71.2 kg (157 lb) 03/08/2022 65.8 kg (145 lb) Previous labs/tests for medication: Not applicable Please advise. Thank you. Debby Saldana LPN [facility] Miscellaneous Notes* Telephone Encounter - Berta Zazueta Ma - 09/07/2022 12:42 PM EDT Several attempts made to notify patient. No answer or able to leave message. No number left to callJill at [facility]. * Telephone Encounter - Anjel Braga APRN.CNP - 09/06/2022 4:30 PM EDT When reading Dr. Morton's note, patient wanted his meds filled for him and then he would start beingcompliant. Please call patient and let him know Joseluis is already doing this. Thank you Anjel Braga APRN.CNP * Telephone Encounter - Rosaura Desai LPN - 09/06/2022 4:21 PM EDT [facility] phone #[phone] [facility] and they already fill his pills for him. Please advise further. Rosaura Desai LPN * Telephone Encounter - Anjel Braga APRN.CNP - 09/06/2022 4:13 PM EDT Please let patient know this and contact [facility] pharmacy to see how what we need to do to have someone do a pill pack for him. Thank you Anjel Braga APRN.CNP * Telephone Encounter - Lilia Burgos LPN - 09/06/2022 10:06 AM EDT Nidia with [facility] calls to report she received order for pt for Medication Management. Nidia reports it was reviewed and shows what pt needs is a non- skillable need. Medicare will not pay/cover this. Nidia reports that [facility] will go into pt's home and get pt's meds, put them in a pill pakand return to pt. Nidia reports pt wants his medications set up and that is an option. Lilia Burgos LPN documented in this encounterMercy Health [facility]03-16-2023 Miscellaneous Notes* Telephone Encounter - Marguerite Roper RN - 09/01/2022 3:43 PM EDT Patient calling to request 3 medication refills-pended for review. Patient also states he is interested in [facility] and help with his medications. Agreeable to having referral order and information faxed to [facility] for their review and follow-up. Information faxed to [facility] as requested. Marguerite Roper RN documented in this encounterMercy Health [facility]03-13-2023 Miscellaneous Notes* Telephone Encounter - Bing Delgado RN - 08/29/2022 1:20 PM EDT Patient has been identified by name and date of : Yes, Provider Selene Date 08-29-22 Time 1:20 pm Patient phones for refill(s): Requested Prescriptions Pending Prescriptions Disp Refills lidocaine (LIDODERM) 5 % 15 Patch 0 Sig: Apply 1 Patch as directed every 24 hours. Remove patch after 12 hours and do not apply new patch for an additional 12 hours. Location: Right chest wall Date of last office visit with pcp: 08-27-22. Last 2 Encounter Wt Readings: Date: Wt: 08/27/2022 71.2 kg (157 lb) 03/08/2022 65.8 kg (145 lb) Previous labs/tests for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 06/08/2023 Limb ischemia 12/17/2019 06/08/2023 Left groin wound seroma and infection, status post revascularization of left 10/17/2019 3 Overview: History: pleasant 69-year-old gentleman, who has recently undergone complex revascularization and redo groin surgery for severe left-sided iliofemoral occlusive disease. Ultimately, he required a left external iliac, profunda femoris artery PTFE bypass graft with angioplasty and stenting of recurrent iliac artery stenoses. He initially did well after surgery, having been discharged several days ago. However, he presents now with increasing serous drainage from the wound, no evidence of ischemia of the leg, and no fevers or chills. Clinical exam and subsequent imaging on admission are suspicious for deep wound infection. Given the synthetic graft which is in place, the patient is taken back to the operating room now for wound exploration and debridement with possible sartorius muscle flap if required. Clinically, the bypass graft is patent and the distal limb is well- perfused. Plan: Duplex left groin did not show any fluid collection CTA abdomen/ pelvis with runoff showed left groin and RP hematoma. LLE runoff into foot via AT. Vein mapping completed in case redo bypass needed to be performed. 10/18/2019 Sartorius muscle flap placement for left iliofemoral and femoral artery infection. Excisional debridement of necrotic skin, subcutaneous tissue, and fascia of left groin, 11 x 4 x 4 cm wound size. Wound VAC placement-greater than 40 cm wound size. Vac changes to left groin wound: black foam, continuous 75 mmHg, change every M/W/F Left groin cx grew Klebiella, ID recommends continue intravenous Zosyn for a period of 4 weeks postop 2+ left DP pulse, biphasic L PT and R DP/PT doppler signals F/U Dr. 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 Sher regarding preference for anticoagulation given GI bleed and peripheral vascular disease -no NSAIDs once discharged home Hypotension due to blood loss 02/07/2016 06/08/2023 Overview: Admission: -became hypotensive on admission to [facility] (109/45 vs. 181/75 in ED) -1 L bolus given, BP improved to 130s/60s, lactate 2.5-->0.9 Plan: -BP remains stable in 110s-130s/50s since IV fluids and 2 units of blood -hold beta joel Dysuria 02/07/2016 06/08/2023 Overview: Assessment: -Patient reports symptoms of UTI diagnosed at [facility] on 02/01/16 (confirmed via [facility]) and treated with ciprofloxacin 500mg BID (only took for 4 days) -UA on 02/04 showed 6-10 WBCs and a few calcium oxalate crystals but was otherwise normal. Repeat UA on this admission on 02/07/16 was normal. Phenazopyridine prescribed on 02/05/16, not taking b/c not covered by insurance. -CT on 02/06/16 shows distended bladder, radiopaque debris in dependent portion, may indicate small stones, and scattered calcifications of mildly enlarged prostate. -infection unlikely given normal UA -review of previous records indicates that burning with urination is a chronic problem attributed to urinary retention. Patient should follow up outpatient to address further symptoms Plan: -symptom control with phenazopyridine if needed -follow up with primary care Pain in left shoulder 07/01/20152022 Last Assessment & Plan: He is waiting to hear about the MRI of the shoulder. Lipoma of abdominal wall 09/09/2014 Last Assessment & Plan: The patient is going to have a lipoma removed, Is off coumadin, right now, But in light of the numbness and tingling in the face, i would like to Have him on lovenox. Hematoma, postoperative 07/07/201407/21 Overview: 07/07/2014 Left arm duplex LEFT SIDE Negative for pseudoaneurysm, deep vein thrombosis and arteriovenous fistula. Brachial artery patent . Hematoma noted in region of incision at mid to distal medial upper arm measuring approximately 5.31 x 1.29 x 3.31cm. 07/08/2014 Hematoma stable, continue fátima wrap at discharge Ulcerative colitis 06/24/2014 9 Overview: Patient has UC and is on Azulide, there is apparent resolution of symptoms with medication Last Assessment & Plan: Patient has UC and is on Azulide, there is apparent resolution of symptoms with that. PVD (peripheral vascular disease) 04/22/2014 06/08/2023 Overview: Assessment: Left TELEVISION REPORTER endart with bovine 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 Due to occlusion of this repair 2 days later, he returned to the OR and underwent a Left EIA to TELEVISION REPORTER bypass with 7mm PTFE distally with retrograde RADHA angioplasty (10/10/19). Shortly after, the left groin developed a seroma and possible infection, which was opened up, debrided, and covered with a Sartorious flap. ASA, plavix, warfarin Last Assessment & Plan: Assessment: s/p multiple interventions with aortoiliac disease Acute blood loss anemia 01/28/201409/18 Overview: Transfuse 2 units PRBC intra-op 10/10/19 Transfuse 2 units PRBC post-op Last Assessment & Plan: Assessment: +h/o anemia, last CBC 03/2019 normal H/H, new labs pending GI bleeding 01/09/2014 06/08/2023 Overview: Has had bleeding in the rectum, 7 times since the last week. 2013. Went to the [facility] ER and was observed his Hb is 11.2 Rectal exam was negative for blood and ortho stats were negative. He was sent home. Last Assessment & Plan: No recent bleeding. He has not had any black colored stools. His cbc was normal, reassured him. Hyponatremia 12/28/2013 06/08/2023 Overview: - Sodium of 130 on 12/28/2013 - Low chloride - 91 - Started on 75 mL/hr normal saline for 12 hours Urinary retention with incom plete bladder emptying 12/26/2013 06/08/2023 Last Assessment & Plan: Assessment: controlled on rx Anxiety 12/23/2013 06/08/2023 Overview: Continue home dose of effexor 150mg daily. RUQ abdominal pain 12/22/2013 Overview: Acute on chronic Melena 12/15/2013 08/18/2022 Overview: - 12/17/13 EGD normal - 01/10/14 colonoscopy with non-bleeding hemorrhoids and two colonic angiodysplastic lesions in cecum, treated by fulguration - currently Coumadin and ASA held again, INR subtherapeutic on admission - Vital signs and Hgb have been stable, no more bleeding - no BMs today, +constipation Plan: - NPO/IVF - capsule just swallowed 01/16/14 (and 01/13/14?), per patient has not yet passed in his stool - H/H q12, transfuse if Hb <7 - consented for blood products transfusions, T&S - hold AC and asa, to restart once ?GIB resolves given high risk of stent thrombosis, f/u INR - check FOBT, C. diff, follow BMs Last Assessment & Plan: The patient is saying that he had melena for the past 3 days. He is on iron supplements in the past and is not sure if it is the iron or the melena. He is having a stomach ache for a long time. He thinks it is blood because when he wiped he had blood in it. Thrombosis 11/12/2013 02/10/2014 Overview: 11/12/13 s/p lysis catheter placemenst for aortoiliac thrombosis. On heparin and tPA at present. Erythema of groin 10/30/2013 02/10/2014 Overview: Patient recently discharge on oral regimen of bactrim for 2 week course (till 11/20/13) for recurrent groin erythema SUMMARY 10/30/2013 08/18/2022 Overview: Pedro Pablo Sierra is a 63 year old male with PMH significant for PVD, acute ischemic LE (October/2013) s/p CRISPIN stenting on 10/23/13 for aorto-occlusive critical limb ischemia, CAD previous WI, DM, HTN, DLD, COPD, UC/IBD on sulfasalazine who was admitted on 01/27/2014 with BRBPR. He underwent colonoscopy yesterday which revealed a 3 mm sessile polyp in the ascending colon, with another preset in the descending colon, nonbleeding internal hemorrhoids and an angiodysplastic lesion in the ascending colon with stigmata of recent bleeding which was fulgurated. Overnight he had a minimal amount of bright red blood on his wipe after an episode of straining on the toilet. Hemoglobin is stable at 8.2 g/dL. Pain, postoperative, acute 10/30/2013 0 02/10/2014 Overview: Patient on 300 mg og Neurotoin BID at home Patient started on [place] postoperatively, pain controlled at time of discharge. Urinary retention 10/25/2013 08/18/2022 Overview: Home med: tamsulosin Plan: -Resume Tamsulosin DISPOSITION AND FOLLOW-UP 10/25/2013 Overview: CM following for d/c needs. PT/OT to evaluate-->recommending home PT 07/08/2014 Discharge with home care today Ischemia of extremity 10/14/20132013 Overview: - admitted to [facility] vascular surgery twice in October 2013, s/p left femoral endarterectomy with patch, US guided access RCFA, L profundaplasty, RUFUS recanalization & stenting, CRISPIN stenting on 10/23/13 for aorto-occlusive critical limb ischemia - S/p 11/12-11/19/13 [facility] Vascular Surgery for aortoiliac thrombosis (BLE pain), underwent lysis of bilateral ileofemoral arteries. Started on anticoagulation with coumadin, also on aspirin 81 daily - chart review shows INR frequently sub-therapeutic on admissions Plan: - Warfarin therapeutic for 24 hours. Stop heparin. - Scheduled for OPD appointment with Dr. Sher on 02/10/2014. - PVR study of the lower limbs unchanged from previous. Vertebral compression fracture 07/05/2013 04/23/2020 Bilateral shoulder pain 05/12/201305/20 Neck pain 05/12/2013 06/08/2023 Spondylosis of lumbar region without myelopathy or radiculopathy 12/18/2012 07/24/2020 Low back pain 12/18/2012 06/08/2023 Overview: Pain control; continue home regimen Oxycodone IR q 4 hours Headache 08/26/1997 06/08/2023 Tobacco abuse, in remission 06/08/2023 Overview: Smoked for the past 50 years. Pt reports quiting smoking 1 month ago with help of nicotine patch Plan: -Continue nicotine patch as inpatient -Pt has a 3 month supply of nicotine patches that were prescribed on 08/08/2019 Last Assessment & Plan: He smoked one cigarette today. Been trying to reduce it in fact he says the nicotine patch was working very good. Rectal bleeding 11/13/2013 documented as of this encounter (statuses as of 07/20/2023) [facility]03[facility] History of Past illness Narrative* Problem Noted Date Diagnosed Date Resolved Date Cholecystitis 08/21/2021 06/08/2023 Limb ischemia 12/17/2019 06/08/2023 Left groin wound seroma and infection, status post revascularization of left 10/17/2019 Overview: History: pleasant 69-year-old gentleman, who has recently undergone complex revascularization and redo groin surgery for severe left-sided iliofemoral occlusive disease. Ultimately, he required a left external iliac, profunda femoris artery PTFE bypass graft with angioplasty and stenting of recurrent iliac artery stenoses. He initially did well after surgery, having been discharged several days ago. However, he presents now with increasing serous drainage from the wound, no evidence of ischemia of the leg, and no fevers or chills. Clinical exam and subsequent imaging on admission are suspicious for deep wound infection. Given the synthetic graft which is in place, the patient is taken back to the operating room now for wound exploration and debridement with possible sartorius muscle flap if required. Clinically, the bypass graft is patent and the distal limb is well- perfused. Plan: Duplex left groin did not show any fluid collection CTA abdomen/ pelvis with runoff showed left groin and RP hematoma. LLE runoff into foot via AT. Vein mapping completed in case redo bypass needed to be performed. 10/18/2019 Sartorius muscle flap placement for left iliofemoral and femoral artery infection. Excisional debridement of necrotic skin, subcutaneous tissue, and fascia of left groin, 11 x 4 x 4 cm wound size. Wound VAC placement-greater than 40 cm wound size. Vac changes to left groin wound: black foam, continuous 75 mmHg, change every M/W/F Left groin cx grew Klebiella, ID recommends continue intravenous Zosyn for a period of 4 weeks postop 2+ left DP pulse, biphasic L PT and R DP/PT doppler signals F/U Dr. 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 Sher regarding preference for anticoagulation given GI bleed and peripheral vascular disease -no NSAIDs once discharged home Hypotension due to blood loss 02/07/2016 06/08/2023 Overview: Admission: -became hypotensive on admission to [facility] (109/45 vs. 181/75 in ED) -1 L bolus given, BP improved to 130s/60s, lactate 2.5-->0.9 Plan: -BP remains stable in 110s-130s/50s since IV fluids and 2 units of blood -hold beta joel Dysuria 02/07/2016 06/08/2023 Overview: Assessment: -Patient reports symptoms of UTI diagnosed at [facility] on 02/01/16 (confirmed via [facility]) and treated with ciprofloxacin 500mg BID (only took for 4 days) -UA on 02/04 showed 6-10 WBCs and a few calcium oxalate crystals but was otherwise normal. Repeat UA on this admission on 02/07/16 was normal. Phenazopyridine prescribed on 02/05/16, not taking b/c not covered by insurance. -CT on 02/06/16 shows distended bladder, radiopaque debris in dependent portion, may indicate small stones, and scattered calcifications of mildly enlarged prostate. -infection unlikely given normal UA -review of previous records indicates that burning with urination is a chronic problem attributed to urinary retention. Patient should follow up outpatient to address further symptoms Plan: -symptom control with phenazopyridine if needed -follow up with primary care Pain in left shoulder 07/01/20152022 Last Assessment & Plan: He is waiting to hear about the MRI of the shoulder. Lipoma of abdominal wall 09/09/2014 Last Assessment & Plan: The patient is going to have a lipoma removed, Is off coumadin, right now, But in light of the numbness and tingling in the face, i would like to Have him on lovenox. Hematoma, postoperative 07/07/201407/21 Overview: 07/07/2014 Left arm duplex LEFT SIDE Negative for pseudoaneurysm, deep vein thrombosis and arteriovenous fistula. Brachial artery patent . Hematoma noted in region of incision at mid to distal medial upper arm measuring approximately 5.31 x 1.29 x 3.31cm. 07/08/2014 Hematoma stable, continue fátima wrap at discharge Ulcerative colitis 06/24/2014 9 Overview: Patient has UC and is on Azulide, there is apparent resolution of symptoms with medication Last Assessment & Plan: Patient has UC and is on Azulide, there is apparent resolution of symptoms with that. PVD (peripheral vascular disease) 04/22/2014 06/08/2023 Overview: Assessment: Left TELEVISION REPORTER endart with bovine 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 Due to occlusion of this repair 2 days later, he returned to the OR and underwent a Left EIA to TELEVISION REPORTER bypass with 7mm PTFE distally with retrograde RADHA angioplasty (10/10/19). Shortly after, the left groin developed a seroma and possible infection, which was opened up, debrided, and covered with a Sartorious flap. ASA, plavix, warfarin Last Assessment & Plan: Assessment: s/p multiple interventions with aortoiliac disease Acute blood loss anemia 01/28/201409/18 Overview: Transfuse 2 units PRBC intra-op 10/10/19 Transfuse 2 units PRBC post-op Last Assessment & Plan: Assessment: +h/o anemia, last CBC 03/2019 normal H/H, new labs pending GI bleeding 01/09/2014 06/08/2023 Overview: Has had bleeding in the rectum, 7 times since the last week. 2013. Went to the [facility] ER and was observed his Hb is 11.2 Rectal exam was negative for blood and ortho stats were negative. He was sent home. Last Assessment & Plan: No recent bleeding. He has not had any black colored stools. His cbc was normal, reassured him. Hyponatremia 12/28/2013 06/08/2023 Overview: - Sodium of 130 on 12/28/2013 - Low chloride - 91 - Started on 75 mL/hr normal saline for 12 hours Urinary retention with incom plete bladder emptying 12/26/2013 06/08/2023 Last Assessment & Plan: Assessment: controlled on rx Anxiety 12/23/2013 06/08/2023 Overview: Continue home dose of effexor 150mg daily. RUQ abdominal pain 12/22/2013 Overview: Acute on chronic Melena 12/15/2013 08/18/2022 Overview: - 12/17/13 EGD normal - 01/10/14 colonoscopy with non-bleeding hemorrhoids and two colonic angiodysplastic lesions in cecum, treated by fulguration - currently Coumadin and ASA held again, INR subtherapeutic on admission - Vital signs and Hgb have been stable, no more bleeding - no BMs today, +constipation Plan: - NPO/IVF - capsule just swallowed 01/16/14 (and 01/13/14?), per patient has not yet passed in his stool - H/H q12, transfuse if Hb <7 - consented for blood products transfusions, T&S - hold AC and asa, to restart once ?GIB resolves given high risk of stent thrombosis, f/u INR - check FOBT, C. diff, follow BMs Last Assessment & Plan: The patient is saying that he had melena for the past 3 days. He is on iron supplements in the past and is not sure if it is the iron or the melena. He is having a stomach ache for a long time. He thinks it is blood because when he wiped he had blood in it. Thrombosis 11/12/2013 02/10/2014 Overview: 11/12/13 s/p lysis catheter placemenst for aortoiliac thrombosis. On heparin and tPA at present. Erythema of groin 10/30/2013 02/10/2014 Overview: Patient recently discharge on oral regimen of bactrim for 2 week course (till 11/20/13) for recurrent groin erythema SUMMARY 10/30/2013 08/18/2022 Overview: Pedro Pablo Sierra is a 63 year old male with PMH significant for PVD, acute ischemic LE (October/2013) s/p CRISPIN stenting on 10/23/13 for aorto-occlusive critical limb ischemia, CAD previous [place], DM, HTN, DLD, COPD, UC/IBD on sulfasalazine who was admitted on 01/27/2014 with BRBPR. He underwent colonoscopy yesterday which revealed a 3 mm sessile polyp in the ascending colon, with another preset in the descending colon, nonbleeding internal hemorrhoids and an angiodysplastic lesion in the ascending colon with stigmata of recent bleeding which was fulgurated. Overnight he had a minimal amount of bright red blood on his wipe after an episode of straining on the toilet. Hemoglobin is stable at 8.2 g/dL. Pain, postoperative, acute 10/30/2013 0 02/10/2014 Overview: Patient on 300 mg og Neurotoin BID at home Patient started on Poteau postoperatively, pain controlled at time of discharge. Urinary retention 10/25/2013 08/18/2022 Overview: Home med: tamsulosin Plan: -Resume Tamsulosin DISPOSITION AND FOLLOW-UP 10/25/2013 Overview: CM following for d/c needs. PT/OT to evaluate-->recommending home PT 07/08/2014 Discharge with home care today Ischemia of extremity 10/14/20132013 Overview: - admitted to [facility] vascular surgery twice in October 2013, s/p left femoral endarterectomy with patch, US guided access RCFA, L profundaplasty, RUFUS recanalization & stenting, CRISPIN stenting on 10/23/13 for aorto-occlusive critical limb ischemia - S/p 11/12-11/19/13 [facility] Vascular Surgery for aortoiliac thrombosis (BLE pain), underwent lysis of bilateral ileofemoral arteries. Started on anticoagulation with coumadin, also on aspirin 81 daily - chart review shows INR frequently sub-therapeutic on admissions Plan: - Warfarin therapeutic for 24 hours. Stop heparin. - Scheduled for OPD appointment with Dr. Sher on 02/10/2014. - PVR study of the lower limbs unchanged from previous. Vertebral compression fracture 07/05/2013 04/23/2020 Bilateral shoulder pain 05/12/201305/20 Neck pain 05/12/2013 06/08/2023 Spondylosis of lumbar region without myelopathy or radiculopathy 12/18/2012 07/24/2020 Low back pain 12/18/2012 06/08/2023 Overview: Pain control; continue home regimen Oxycodone IR q 4 hours Headache 08/26/1997 06/08/2023 Tobacco abuse, in remission 06/08/2023 Overview: Smoked for the past 50 years. Pt reports quiting smoking 1 month ago with help of nicotine patch Plan: -Continue nicotine patch as inpatient -Pt has a 3 month supply of nicotine patches that were prescribed on 08/08/2019 Last Assessment & Plan: He smoked one cigarette today. Been trying to reduce it in fact he says the nicotine patch was working very good. Rectal bleeding 11/13/2013 documented as of this encounter (statuses as of 08/07/2023) [facility]03-05-2022 History of Past illness Narrative* Problem Noted Date Diagnosed Date Resolved Date Cholecystitis 08/21/2021 06/08/2023 Limb ischemia 12/17/2019 06/08/2023 Left groin wound seroma and infection, status post revascularization of left 10/17/2019 3 Overview: History: pleasant 69-year-old gentleman, who has recently undergone complex revascularization and redo groin surgery for severe left-sided iliofemoral occlusive disease. Ultimately, he required a left external iliac, profunda femoris artery PTFE bypass graft with angioplasty and stenting of recurrent iliac artery stenoses. He initially did well after surgery, having been discharged several days ago. However, he presents now with increasing serous drainage from the wound, no evidence of ischemia of the leg, and no fevers or chills. Clinical exam and subsequent imaging on admission are suspicious for deep wound infection. Given the synthetic graft which is in place, the patient is taken back to the operating room now for wound exploration and debridement with possible sartorius muscle flap if required. Clinically, the bypass graft is patent and the distal limb is well- perfused. Plan: Duplex left groin did not show any fluid collection CTA abdomen/ pelvis with runoff showed left groin and RP hematoma. LLE runoff into foot via AT. Vein mapping completed in case redo bypass needed to be performed. 10/18/2019 Sartorius muscle flap placement for left iliofemoral and femoral artery infection. Excisional debridement of necrotic skin, subcutaneous tissue, and fascia of left groin, 11 x 4 x 4 cm wound size. Wound VAC placement-greater than 40 cm wound size. Vac changes to left groin wound: black foam, continuous 75 mmHg, change every M/W/F Left groin cx grew Klebiella, ID recommends continue intravenous Zosyn for a period of 4 weeks postop 2+ left DP pulse, biphasic L PT and R DP/PT doppler signals F/U Dr. 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 Sher regarding preference for anticoagulation given GI bleed and peripheral vascular disease -no NSAIDs once discharged home Hypotension due to blood loss 02/07/2016 06/08/2023 Overview: Admission: -became hypotensive on admission to [facility] (109/45 vs. 181/75 in ED) -1 L bolus given, BP improved to 130s/60s, lactate 2.5-->0.9 Plan: -BP remains stable in 110s-130s/50s since IV fluids and 2 units of blood -hold beta joel Dysuria 02/07/2016 06/08/2023 Overview: Assessment: -Patient reports symptoms of UTI diagnosed at [facility] on 02/01/16 (confirmed via [facility]) and treated with ciprofloxacin 500mg BID (only took for 4 days) -UA on 02/04 showed 6-10 WBCs and a few calcium oxalate crystals but was otherwise normal. Repeat UA on this admission on 02/07/16 was normal. Phenazopyridine prescribed on 02/05/16, not taking b/c not covered by insurance. -CT on 02/06/16 shows distended bladder, radiopaque debris in dependent portion, may indicate small stones, and scattered calcifications of mildly enlarged prostate. -infection unlikely given normal UA -review of previous records indicates that burning with urination is a chronic problem attributed to urinary retention. Patient should follow up outpatient to address further symptoms Plan: -symptom control with phenazopyridine if needed -follow up with primary care Pain in left shoulder 07/01/20152022 Last Assessment & Plan: He is waiting to hear about the MRI of the shoulder. Lipoma of abdominal wall 09/09/2014 Last Assessment & Plan: The patient is going to have a lipoma removed, Is off coumadin, right now, But in light of the numbness and tingling in the face, i would like to Have him on lovenox. Hematoma, postoperative 07/07/201407/21 Overview: 07/07/2014 Left arm duplex LEFT SIDE Negative for pseudoaneurysm, deep vein thrombosis and arteriovenous fistula. Brachial artery patent . Hematoma noted in region of incision at mid to distal medial upper arm measuring approximately 5.31 x 1.29 x 3.31cm. 07/08/2014 Hematoma stable, continue fátima wrap at discharge Ulcerative colitis 06/24/2014 9 Overview: Patient has UC and is on Azulide, there is apparent resolution of symptoms with medication Last Assessment & Plan: Patient has UC and is on Azulide, there is apparent resolution of symptoms with that. PVD (peripheral vascular disease) 04/22/2014 06/08/2023 Overview: Assessment: Left TELEVISION REPORTER endart with bovine 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 Due to occlusion of this repair 2 days later, he returned to the OR and underwent a Left EIA to TELEVISION REPORTER bypass with 7mm PTFE distally with retrograde RADHA angioplasty (10/10/19). Shortly after, the left groin developed a seroma and possible infection, which was opened up, debrided, and covered with a Sartorious flap. ASA, plavix, warfarin Last Assessment & Plan: Assessment: s/p multiple interventions with aortoiliac disease Acute blood loss anemia 01/28/2014 04/2 11/2019 Overview: Transfuse 2 units PRBC intra-op 10/10/19 Transfuse 2 units PRBC post-op Last Assessment & Plan: Assessment: +h/o anemia, last CBC 03/2019 normal H/H, new labs pending GI bleeding 01/09/2014 06/08/2023 Overview: Has had bleeding in the rectum, 7 times since the last week. 2013. Went to the [facility] ER and was observed his Hb is 11.2 Rectal exam was negative for blood and ortho stats were negative. He was sent home. Last Assessment & Plan: No recent bleeding. He has not had any black colored stools. His cbc was normal, reassured him. Hyponatremia 12/28/2013 06/08/2023 Overview: - Sodium of 130 on 12/28/2013 - Low chloride - 91 - Started on 75 mL/hr normal saline for 12 hours Urinary retention with incom plete bladder emptying 12/26/2013 06/08/2023 Last Assessment & Plan: Assessment: controlled on rx Anxiety 12/23/2013 06/08/2023 Overview: Continue home dose of effexor 150mg daily. RUQ abdominal pain 12/22/2013 Overview: Acute on chronic Melena 12/15/2013 08/18/2022 Overview: - 12/17/13 EGD normal - 01/10/14 colonoscopy with non-bleeding hemorrhoids and two colonic angiodysplastic lesions in cecum, treated by fulguration - currently Coumadin and ASA held again, INR subtherapeutic on admission - Vital signs and Hgb have been stable, no more bleeding - no BMs today, +constipation Plan: - NPO/IVF - capsule just swallowed 01/16/14 (and 01/13/14?), per patient has not yet passed in his stool - H/H q12, transfuse if Hb <7 - consented for blood products transfusions, T&S - hold AC and asa, to restart once ?GIB resolves given high risk of stent thrombosis, f/u INR - check FOBT, C. diff, follow BMs Last Assessment & Plan: The patient is saying that he had melena for the past 3 days. He is on iron supplements in the past and is not sure if it is the iron or the melena. He is having a stomach ache for a long time. He thinks it is blood because when he wiped he had blood in it. Thrombosis 11/12/2013 02/10/2014 Overview: 11/12/13 s/p lysis catheter placemenst for aortoiliac thrombosis. On heparin and tPA at present. Erythema of groin 10/30/2013 02/10/2014 Overview: Patient recently discharge on oral regimen of bactrim for 2 week course (till 11/20/13) for recurrent groin erythema SUMMARY 10/30/2013 08/18/2022 Overview: Pedro Pablo Sierra is a 63 year old male with PMH significant for PVD, acute ischemic LE (October/2013) s/p CRISPIN stenting on 10/23/13 for aorto-occlusive critical limb ischemia, CAD previous [place], DM, HTN, DLD, COPD, UC/IBD on sulfasalazine who was admitted on 01/27/2014 with BRBPR. He underwent colonoscopy yesterday which revealed a 3 mm sessile polyp in the ascending colon, with another preset in the descending colon, nonbleeding internal hemorrhoids and an angiodysplastic lesion in the ascending colon with stigmata of recent bleeding which was fulgurated. Overnight he had a minimal amount of bright red blood on his wipe after an episode of straining on the toilet. Hemoglobin is stable at 8.2 g/dL. Pain, postoperative, acute 10/30/2013 0 02/10/2014 Overview: Patient on 300 mg og Neurotoin BID at home Patient started on Poteau postoperatively, pain controlled at time of discharge. Urinary retention 10/25/2013 08/18/2022 Overview: Home med: tamsulosin Plan: -Resume Tamsulosin DISPOSITION AND FOLLOW-UP 10/25/2013 Overview: CM following for d/c needs. PT/OT to evaluate-->recommending home PT 07/08/2014 Discharge with home care today Ischemia of extremity 10/14/20132013 Overview: - admitted to [facility] vascular surgery twice in October 2013, s/p left femoral endarterectomy with patch, US guided access RCFA, L profundaplasty, RUFUS recanalization & stenting, CRISPIN stenting on 10/23/13 for aorto-occlusive critical limb ischemia - S/p 11/12-11/19/13 [facility] Vascular Surgery for aortoiliac thrombosis (BLE pain), underwent lysis of bilateral ileofemoral arteries. Started on anticoagulation with coumadin, also on aspirin 81 daily - chart review shows INR frequently sub-therapeutic on admissions Plan: - Warfarin therapeutic for 24 hours. Stop heparin. - Scheduled for OPD appointment with Dr. Sher on 02/10/2014. - PVR study of the lower limbs unchanged from previous. Vertebral compression fracture 07/05/2013 04/23/2020 Bilateral shoulder pain 05/12/201305/20 Neck pain 05/12/2013 06/08/2023 Spondylosis of lumbar region without myelopathy or radiculopathy 12/18/2012 07/24/2020 Low back pain 12/18/2012 06/08/2023 Overview: Pain control; continue home regimen Oxycodone IR q 4 hours Headache 08/26/1997 06/08/2023 Tobacco abuse, in remission 06/08/2023 Overview: Smoked for the past 50 years. Pt reports quiting smoking 1 month ago with help of nicotine patch Plan: -Continue nicotine patch as inpatient -Pt has a 3 month supply of nicotine patches that were prescribed on 08/08/2019 Last Assessment & Plan: He smoked one cigarette today. Been trying to reduce it in fact he says the nicotine patch was working very good. Rectal bleeding 11/13/2013 documented as of this encounter (statuses as of 08/21/2023) [facility]02-25-2022 Miscellaneous Notes* Telephone Encounter - Anjel Braga APRN.CNP - 08/13/2021 3:37 PM EST Patient needs to reschedule missed appointment Thank you Anjel Braga APRN.CNP * Telephone Encounter - Bessy Freed RN - 08/13/2021 1:30 PM EST Patient has been identified by name and date of : Yes Pharmacy phones for refill(s): Pending Prescriptions Disp Refills ALENDRONATE 70 MG TABLET 4 tablet 11 Sig: Take 1 tablet by mouth one time a week. NAVI: No GABAPENTIN 300 MG CAPSULE 120 capsule 0 Sig: Take 1 capsule in the AM, 1 capsule midday and 2 capsules at bedtime NAVI: No Date of last office visit in primary care: 04/02/2021; Future Appt. none Last 2 Encounter Wt Readings: Date: Wt: 06/17/2021 72.7 kg (160 lb 3.2 oz) 06/07/2021 72.3 kg (159 lb 6.4 oz) Previous labs/tests for medication: Cholesterol: HDL Cholesterol (mg/dL) Date Value 11/17/2017 61 HDL Cholesterol, Nonfasting (mg/dL) Date Value 03/19/2019 60 LDL Cholesterol (mg/dL) Date Value 11/17/2017 56 LDL Cholesterol, Nonfasting (mg/dL) Date Value 03/19/2019 66 ALT (U/L) Date Value 04/10/2020 19 Non HDL Cholesterol, Nonfasting (mg/dL) Date Value 03/19/2019 93 Blood Pressure: BUN (mg/dL) Date Value 04/10/2020 17 Sodium (mmol/L) Date Value 04/10/2020 139 Last 1 Encounter BP Readings: Date: BP: 06/17/2021 156/92 Liver Function: ALT (U/L) Date Value 04/10/2020 19 AST (U/L) Date Value 04/10/2020 17 Please advise. Thank you. Bessy Freed RN documented in this encounterMer[facility]05[facility]21 Miscellaneous Notes* Telephone Encounter - Daija Morton MD - 11/12/2020 2:17 PM EDT Noted * Telephone Encounter - Bing Delgado RN - 11/12/2020 1:15 PM EDT Phoned [facility]. Spoke with pharmacist, Jonathon, given verbal coumadin change: on November 10, 2020, patient is to take 7.5 mg daily for the next 2 weeks, then re-check INR. Given [facility]'s phone # to Jonathon. Phoned [facility] to let her know [facility] is aware of changed coumadin dose. She is going to call [facility], to see if they are bringing patient new pill pack. Reports she was going to discharge patient today, but isgoing to talk to her supervisor research shop about keeping patient on [facility] for one more visit. * Telephone Encounter - Bing Delgado RN - 11/12/2020 12:50 PM EDT [facility]- [facility]- reports patient's new coumadin instructions have not been updated to [facility]. Attempted to call [facility]- they are closed for lunch. Will try again when they re-open at 1 pm. documented in this encounterMercy [facility]05-26-2021 History of Present illness Narrative* Nahed Aponte RT(R) - 11/11/2020 10:10 AM EDT Radiology Service Progress Note PATIENT NAME: Pedro Pablo Sierra DATE OF SERVICE: November 11, 2020 TIME: 10:32 AM PATIENT IDENTITY VERIFICATION COMPLETED USING TWO (2) IDENTIFIERS: Name and Date of confirmedby patient verbally. FALL SCREENING: Has the patient had 2 falls in the last year or 1 fall with injury or currently using an Ambulatory Assistive Device (Walker, Cane, Wheelchair, Crutches, etc.)? No PATIENT GENDER DATA: Male PATIENT RELEVANT IMPLANT DATA REVIEWED: Not Applicable RADIOLOGY DEPARTMENT: General X-ray: Exam(s) Completed: Lower Extremity X- Ray(s): Femur, Left PERIPHERAL IV DATA: Not applicable SIGNED BY: RT Shirley(R) November 11, 2020 10:32 AM documented in this encounterMercy [facility]04-24-2020 History of Past illness Narrative* Problem Noted Date Resolved Date Hypophosphatemia 10/11/2019 10/13/2019 Overview: Replace prn Temporal arteritis 11/17/2017 11/09/2018 Seizure disorder 07/03/2017 07/10/2017 Hematoma, postoperative 07/07/2014 08/11/19 15 Overview: 07/07/2014 Left arm duplex LEFT SIDE Negative for pseudoaneurysm, deep vein thrombosis and arteriovenous fistula. Brachial artery patent . Hematoma noted in region of incision at mid to distal medial upper arm measuring approximately 5.31 x 1.29 x 3.31cm. 07/08/2014 Hematoma stable, continue fátima wrap at discharge Smoker 07/04/2014 04/27/2020 Overview: Smoking for last 50 years per patient Smoking cessation information provided to patient by nursing. Patient on patch prior to coming in, continue Last Assessment & Plan: He knows he will loose his legs if he smokes. He says he just cannot quit it. Ulcerative colitis 06/24/2014 11/09/2018 Overview: Patient has UC and is on Azulide, there is apparent resolution of symptoms with medication Last Assessment & Plan: Patient has UC and is on Azulide, there is apparent resolution of symptoms with that. Acute blood loss anemia 01/28/2014 10/13/19 Overview: Transfuse 2 units PRBC intra-op 10/10/19 Transfuse 2 units PRBC post-op Last Assessment & Plan: Assessment: +h/o anemia, last CBC 03/2019 normal H/H, new labs pending Thrombosis 11/12/2013 02/10/2014 Overview: 11/12/13 s/p lysis catheter placemenst for aortoiliac thrombosis. On heparin and tPA at present. Erythema of groin 10/30/2013 02/10/2014 Overview: Patient recently discharge on oral regimen of bactrim for 2 week course (till 11/20/13) for recurrent groin erythema Pain, postoperative, acute 10/30/201302/10 Overview: Patient on 300 mg og Neurotoin BID at home Patient started on Poteau postoperatively, pain controlled at time of discharge. Ischemia of extremity 10/14/2013 02/10/2014 Overview: - admitted to [facility] vascular surgery twice in October 2013, s/p left femoral endarterectomy with patch, US guided access RCFA, L profundaplasty, RUFUS recanalization & stenting, CRISPIN stenting on 10/23/13 for aorto-occlusive critical limb ischemia - S/p 11/12-11/19/13 [facility] Vascular Surgery for aortoiliac thrombosis (BLE pain), underwent lysis of bilateral ileofemoral arteries. Started on anticoagulation with coumadin, also on aspirin 81 daily - chart review shows INR frequently sub-therapeutic on admissions Plan: - Warfarin therapeutic for 24 hours. Stop heparin. - Scheduled for OPD appointment with Dr. Sher on 02/10/2014. - PVR study of the lower limbs unchanged from previous. Vertebral compression fracture 07/05/2013 1 06/23/2019 Spondylosis of lumbar region without myelopathy or radiculopathy 12/18/2012 07/24/2020 Rectal bleeding 11/13/2013 documented as of this encounter (statuses as of 09/14/2021) [facility]04-[facility] History of Past illness Narrative* Problem Noted Date Resolved Date Hypophosphatemia 10/11/2019 10/13/2019 Overview: Replace prn Temporal arteritis 11/17/2017 11/09/2018 Seizure disorder 07/03/2017 07/10/2017 Hematoma, postoperative 07/07/2014 08/11/19 15 Overview: 07/07/2014 Left arm duplex LEFT SIDE Negative for pseudoaneurysm, deep vein thrombosis and arteriovenous fistula. Brachial artery patent . Hematoma noted in region of incision at mid to distal medial upper arm measuring approximately 5.31 x 1.29 x 3.31cm. 07/08/2014 Hematoma stable, continue fátima wrap at discharge Ulcerative colitis 06/24/2014 11/09/2018 Overview: Patient has UC and is on Azulide, there is apparent resolution of symptoms with medication Last Assessment & Plan: Patient has UC and is on Azulide, there is apparent resolution of symptoms with that. Acute blood loss anemia 01/28/2014 10/13/19 20 Overview: Transfuse 2 units PRBC intra-op 10/10/19 Transfuse 2 units PRBC post-op Last Assessment & Plan: Assessment: +h/o anemia, last CBC 03/2019 normal H/H, new labs pending Thrombosis 11/12/2013 02/10/2014 Overview: 11/12/13 s/p lysis catheter placemenst for aortoiliac thrombosis. On heparin and tPA at present. Erythema of groin 10/30/2013 02/10/2014 Overview: Patient recently discharge on oral regimen of bactrim for 2 week course (till 11/20/13) for recurrent groin erythema Pain, postoperative, acute 10/30/201302/10 Overview: Patient on 300 mg og Neurotoin BID at home Patient started on Poteau postoperatively, pain controlled at time of discharge. Ischemia of extremity 10/14/2013 02/10/2014 Overview: - admitted to [facility] vascular surgery twice in October 2013, s/p left femoral endarterectomy with patch, US guided access RCFA, L profundaplasty, RUFUS recanalization & stenting, CRISPIN stenting on 10/23/13 for aorto-occlusive critical limb ischemia - S/p 11/12-11/19/13 [facility] Vascular Surgery for aortoiliac thrombosis (BLE pain), underwent lysis of bilateral ileofemoral arteries. Started on anticoagulation with coumadin, also on aspirin 81 daily - chart review shows INR frequently sub-therapeutic on admissions Plan: - Warfarin therapeutic for 24 hours. Stop heparin. - Scheduled for OPD appointment with Dr. Sher on 02/10/2014. - PVR study of the lower limbs unchanged from previous. Vertebral compression fracture 07/05/2013 1 06/23/2019 Spondylosis of lumbar region without myelopathy or radiculopathy 12/18/2012 07/24/2020 Rectal bleeding 11/13/2013 documented as of this encounter (statuses as of 09/15/2021) [facility]04-24-2020 History of Past illness Narrative* Problem Noted Date Resolved Date Hypophosphatemia 10/11/2019 10/13/2019 Overview: Replace prn Temporal arteritis 11/17/2017 11/09/2018 Seizure disorder 07/03/2017 07/10/2017 Hematoma, postoperative 07/07/2014 08/11/19 15 Overview: 07/07/2014 Left arm duplex LEFT SIDE Negative for pseudoaneurysm, deep vein thrombosis and arteriovenous fistula. Brachial artery patent . Hematoma noted in region of incision at mid to distal medial upper arm measuring approximately 5.31 x 1.29 x 3.31cm. 07/08/2014 Hematoma stable, continue fátima wrap at discharge Ulcerative colitis 06/24/2014 11/09/2018 Overview: Patient has UC and is on Azulide, there is apparent resolution of symptoms with medication Last Assessment & Plan: Patient has UC and is on Azulide, there is apparent resolution of symptoms with that. Acute blood loss anemia 01/28/2014 10/13/19 Overview: Transfuse 2 units PRBC intra-op 10/10/19 Transfuse 2 units PRBC post-op Last Assessment & Plan: Assessment: +h/o anemia, last CBC 03/2019 normal H/H, new labs pending Thrombosis 11/12/2013 02/10/2014 Overview: 11/12/13 s/p lysis catheter placemenst for aortoiliac thrombosis. On heparin and tPA at present. Erythema of groin 10/30/2013 02/10/2014 Overview: Patient recently discharge on oral regimen of bactrim for 2 week course (till 11/20/13) for recurrent groin erythema Pain, postoperative, acute 10/30/201302/10 Overview: Patient on 300 mg og Neurotoin BID at home Patient started on [place] postoperatively, pain controlled at time of discharge. Ischemia of extremity 10/14/2013 02/10/2014 Overview: - admitted to [facility] vascular surgery twice in October 2013, s/p left femoral endarterectomy with patch, US guided access RCFA, L profundaplasty, RUFUS recanalization & stenting, CRISPIN stenting on 10/23/13 for aorto-occlusive critical limb ischemia - S/p 11/12-11/19/13 [facility] Surgery for aortoiliac thrombosis (BLE pain), underwent lysis of bilateral ileofemoral arteries. Started on anticoagulation with coumadin, also on aspirin 81 daily - chart review shows INR frequently sub-therapeutic on admissions Plan: - Warfarin therapeutic for 24 hours. Stop heparin. - Scheduled for OPD appointment with Dr. Sher on 02/10/2014. - PVR study of the lower limbs unchanged from previous. Vertebral compression fracture 07/05/2013 1 06/23/2019 Spondylosis of lumbar region without myelopathy or radiculopathy 12/18/2012 07/24/2020 Rectal bleeding 11/13/2013 documented as of this encounter (statuses as of 09/15/2021) [facility]04-24-2020 History of Past illness Narrative* Problem Noted Date Resolved Date Hypophosphatemia 10/11/2019 10/13/2019 Overview: Replace prn Temporal arteritis 11/17/2017 11/09/2018 Seizure disorder 07/03/2017 07/10/2017 Hematoma, postoperative 07/07/2014 08/11/19 15 Overview: 07/07/2014 Left arm duplex LEFT SIDE Negative for pseudoaneurysm, deep vein thrombosis and arteriovenous fistula. Brachial artery patent . Hematoma noted in region of incision at mid to distal medial upper arm measuring approximately 5.31 x 1.29 x 3.31cm. 07/08/2014 Hematoma stable, continue fátima wrap at discharge Ulcerative colitis 06/24/2014 11/09/2018 Overview: Patient has UC and is on Azulide, there is apparent resolution of symptoms with medication Last Assessment & Plan: Patient has UC and is on Azulide, there is apparent resolution of symptoms with that. Acute blood loss anemia 01/28/2014 10/13/19 20 Overview: Transfuse 2 units PRBC intra-op 10/10/19 Transfuse 2 units PRBC post-op Last Assessment & Plan: Assessment: +h/o anemia, last CBC 03/2019 normal H/H, new labs pending Thrombosis 11/12/2013 02/10/2014 Overview: 11/12/13 s/p lysis catheter placemenst for aortoiliac thrombosis. On heparin and tPA at present. Erythema of groin 10/30/2013 02/10/2014 Overview: Patient recently discharge on oral regimen of bactrim for 2 week course (till 11/20/13) for recurrent groin erythema Pain, postoperative, acute 10/30/201302/10 Overview: Patient on 300 mg og Neurotoin BID at home Patient started on [place] postoperatively, pain controlled at time of discharge. Ischemia of extremity 10/14/2013 02/10/2014 Overview: - admitted to [facility] vascular surgery twice in October 2013, s/p left femoral endarterectomy with patch, US guided access RCFA, L profundaplasty, RUFUS recanalization & stenting, CRISPIN stenting on 10/23/13 for aorto-occlusive critical limb ischemia - S/p 11/12-11/19/13 [facility] Vascular Surgery for aortoiliac thrombosis (BLE pain), underwent lysis of bilateral ileofemoral arteries. Started on anticoagulation with coumadin, also on aspirin 81 daily - chart review shows INR frequently sub-therapeutic on admissions Plan: - Warfarin therapeutic for 24 hours. Stop heparin. - Scheduled for OPD appointment with Dr. Sher on 02/10/2014. - PVR study of the lower limbs unchanged from previous. Vertebral compression fracture 07/05/2013 1 06/23/2019 Spondylosis of lumbar region without myelopathy or radiculopathy 12/18/2012 07/24/2020 Rectal bleeding 11/13/2013 documented as of this encounter (statuses as of 09/16/2021) [facility]04-24-2020 History of Past illness Narrative* Problem Noted Date Resolved Date Hypophosphatemia 10/11/2019 10/13/2019 Overview: Replace prn Temporal arteritis 11/17/2017 11/09/2018 Seizure disorder 07/03/2017 07/10/2017 Hematoma, postoperative 07/07/2014 08/11/19 15 Overview: 07/07/2014 Left arm duplex LEFT SIDE Negative for pseudoaneurysm, deep vein thrombosis and arteriovenous fistula. Brachial artery patent . Hematoma noted in region of incision at mid to distal medial upper arm measuring approximately 5.31 x 1.29 x 3.31cm. 07/08/2014 Hematoma stable, continue fátima wrap at discharge Ulcerative colitis 06/24/2014 11/09/2018 Overview: Patient has UC and is on Azulide, there is apparent resolution of symptoms with medication Last Assessment & Plan: Patient has UC and is on Azulide, there is apparent resolution of symptoms with that. Acute blood loss anemia 01/28/2014 10/13/19 Overview: Transfuse 2 units PRBC intra-op 10/10/19 Transfuse 2 units PRBC post-op Last Assessment & Plan: Assessment: +h/o anemia, last CBC 03/2019 normal H/H, new labs pending Thrombosis 11/12/2013 02/10/2014 Overview: 11/12/13 s/p lysis catheter placemenst for aortoiliac thrombosis. On heparin and tPA at present. Erythema of groin 10/30/2013 02/10/2014 Overview: Patient recently discharge on oral regimen of bactrim for 2 week course (till 11/20/13) for recurrent groin erythema Pain, postoperative, acute 10/30/201302/10 Overview: Patient on 300 mg og Neurotoin BID at home Patient started on [place] postoperatively, pain controlled at time of discharge. Ischemia of extremity 10/14/2013 02/10/2014 Overview: - admitted to [facility] vascular surgery twice in October 2013, s/p left femoral endarterectomy with patch, US guided access RCFA, L profundaplasty, RUFUS recanalization & stenting, CRISPIN stenting on 10/23/13 for aorto-occlusive critical limb ischemia - S/p 11/12-11/19/13 [facility] for aortoiliac thrombosis (BLE pain), underwent lysis of bilateral ileofemoral arteries. Started on anticoagulation with coumadin, also on aspirin 81 daily - chart review shows INR frequently sub-therapeutic on admissions Plan: - Warfarin therapeutic for 24 hours. Stop heparin. - Scheduled for OPD appointment with Dr. Sher on 02/10/2014. - PVR study of the lower limbs unchanged from previous. Vertebral compression fracture 07/05/2013 1 06/23/2019 Spondylosis of lumbar region without myelopathy or radiculopathy 12/18/2012 07/24/2020 Rectal bleeding 11/13/2013 documented as of this encounter (statuses as of 09/16/2021) [facility]04-24-2020 History of Past illness Narrative* Problem Noted Date Resolved Date Hypophosphatemia 10/11/2019 10/13/2019 Overview: Replace prn Temporal arteritis 11/17/2017 11/09/2018 Seizure disorder 07/03/2017 07/10/2017 Hematoma, postoperative 07/07/2014 08/11/19 15 Overview: 07/07/2014 Left arm duplex LEFT SIDE Negative for pseudoaneurysm, deep vein thrombosis and arteriovenous fistula. Brachial artery patent . Hematoma noted in region of incision at mid to distal medial upper arm measuring approximately 5.31 x 1.29 x 3.31cm. 07/08/2014 Hematoma stable, continue fátima wrap at discharge Ulcerative colitis 06/24/2014 11/09/2018 Overview: Patient has UC and is on Azulide, there is apparent resolution of symptoms with medication Last Assessment & Plan: Patient has UC and is on Azulide, there is apparent resolution of symptoms with that. Acute blood loss anemia 01/28/2014 10/13/19 Overview: Transfuse 2 units PRBC intra-op 10/10/19 Transfuse 2 units PRBC post-op Last Assessment & Plan: Assessment: +h/o anemia, last CBC 03/2019 normal H/H, new labs pending Thrombosis 11/12/2013 02/10/2014 Overview: 11/12/13 s/p lysis catheter placemenst for aortoiliac thrombosis. On heparin and tPA at present. Erythema of groin 10/30/2013 02/10/2014 Overview: Patient recently discharge on oral regimen of bactrim for 2 week course (till 11/20/13) for recurrent groin erythema Pain, postoperative, acute 10/30/201302/10 Overview: Patient on 300 mg og Neurotoin BID at home Patient started on [place] postoperatively, pain controlled at time of discharge. Ischemia of extremity 10/14/2013 02/10/2014 Overview: - admitted to [facility] vascular surgery twice in October 2013, s/p left femoral endarterectomy with patch, US guided access RCFA, L profundaplasty, RUFUS recanalization & stenting, CRISPIN stenting on 10/23/13 for aorto-occlusive critical limb ischemia - S/p 11/12-11/19/13 [facility] Vascular Surgery for aortoiliac thrombosis (BLE pain), underwent lysis of bilateral ileofemoral arteries. Started on anticoagulation with coumadin, also on aspirin 81 daily - chart review shows INR frequently sub-therapeutic on admissions Plan: - Warfarin therapeutic for 24 hours. Stop heparin. - Scheduled for OPD appointment with Dr. Sher on 02/10/2014. - PVR study of the lower limbs unchanged from previous. Vertebral compression fracture 07/05/2013 1 06/23/2019 Spondylosis of lumbar region without myelopathy or radiculopathy 12/18/2012 07/24/2020 Rectal bleeding 11/13/2013 documented as of this encounter (statuses as of 09/17/2021) [facility]04-24-2020 History of Past illness Narrative* Problem Noted Date Resolved Date Hypophosphatemia 10/11/2019 10/13/2019 Overview: Replace prn Temporal arteritis 11/17/2017 11/09/2018 Seizure disorder 07/03/2017 07/10/2017 Hematoma, postoperative 07/07/2014 08/11/19 15 Overview: 07/07/2014 Left arm duplex LEFT SIDE Negative for pseudoaneurysm, deep vein thrombosis and arteriovenous fistula. Brachial artery patent . Hematoma noted in region of incision at mid to distal medial upper arm measuring approximately 5.31 x 1.29 x 3.31cm. 07/08/2014 Hematoma stable, continue fátima wrap at discharge Ulcerative colitis 06/24/2014 11/09/2018 Overview: Patient has UC and is on Azulide, there is apparent resolution of symptoms with medication Last Assessment & Plan: Patient has UC and is on Azulide, there is apparent resolution of symptoms with that. Acute blood loss anemia 01/28/2014 10/13/19 20 Overview: Transfuse 2 units PRBC intra-op 10/10/19 Transfuse 2 units PRBC post-op Last Assessment & Plan: Assessment: +h/o anemia, last CBC 03/2019 normal H/H, new labs pending Thrombosis 11/12/2013 02/10/2014 Overview: 11/12/13 s/p lysis catheter placemenst for aortoiliac thrombosis. On heparin and tPA at present. Erythema of groin 10/30/2013 02/10/2014 Overview: Patient recently discharge on oral regimen of bactrim for 2 week course (till 11/20/13) for recurrent groin erythema Pain, postoperative, acute 10/30/201302/10 Overview: Patient on 300 mg og Neurotoin BID at home Patient started on [place] postoperatively, pain controlled at time of discharge. Ischemia of extremity 10/14/2013 02/10/2014 Overview: - admitted to [facility] vascular surgery twice in October 2013, s/p left femoral endarterectomy with patch, US guided access RCFA, L profundaplasty, RUFUS recanalization & stenting, CRISPIN stenting on 10/23/13 for aorto-occlusive critical limb ischemia - S/p 11/12-11/19/13 [facility] for aortoiliac thrombosis (BLE pain), underwent lysis of bilateral ileofemoral arteries. Started on anticoagulation with coumadin, also on aspirin 81 daily - chart review shows INR frequently sub-therapeutic on admissions Plan: - Warfarin therapeutic for 24 hours. Stop heparin. - Scheduled for OPD appointment with Dr. Sher on 02/10/2014. - PVR study of the lower limbs unchanged from previous. Vertebral compression fracture 07/05/2013 1 06/23/2019 Spondylosis of lumbar region without myelopathy or radiculopathy 12/18/2012 07/24/2020 Rectal bleeding 11/13/2013 documented as of this encounter (statuses as of 09/17/2021) [facility]04-24-2020 History of Past illness Narrative* Problem Noted Date Resolved Date Hypophosphatemia 10/11/2019 10/13/2019 Overview: Replace prn Temporal arteritis 11/17/2017 11/09/2018 Seizure disorder 07/03/2017 07/10/2017 Hematoma, postoperative 07/07/2014 08/11/19 15 Overview: 07/07/2014 Left arm duplex LEFT SIDE Negative for pseudoaneurysm, deep vein thrombosis and arteriovenous fistula. Brachial artery patent . Hematoma noted in region of incision at mid to distal medial upper arm measuring approximately 5.31 x 1.29 x 3.31cm. 07/08/2014 Hematoma stable, continue fátima wrap at discharge Ulcerative colitis 06/24/2014 11/09/2018 Overview: Patient has UC and is on Azulide, there is apparent resolution of symptoms with medication Last Assessment & Plan: Patient has UC and is on Azulide, there is apparent resolution of symptoms with that. Acute blood loss anemia 01/28/2014 10/13/19 20 Overview: Transfuse 2 units PRBC intra-op 10/10/19 Transfuse 2 units PRBC post-op Last Assessment & Plan: Assessment: +h/o anemia, last CBC 03/2019 normal H/H, new labs pending Thrombosis 11/12/2013 02/10/2014 Overview: 11/12/13 s/p lysis catheter placemenst for aortoiliac thrombosis. On heparin and tPA at present. Erythema of groin 10/30/2013 02/10/2014 Overview: Patient recently discharge on oral regimen of bactrim for 2 week course (till 11/20/13) for recurrent groin erythema Pain, postoperative, acute 10/30/201302/10 Overview: Patient on 300 mg og Neurotoin BID at home Patient started on [place] postoperatively, pain controlled at time of discharge. Ischemia of extremity 10/14/2013 02/10/2014 Overview: - admitted to [facility] vascular surgery twice in October 2013, s/p left femoral endarterectomy with patch, US guided access RCFA, L profundaplasty, RUFUS recanalization & stenting, CRISPIN stenting on 10/23/13 for aorto-occlusive critical limb ischemia - S/p 11/12-11/19/13 [facility] Vascular Surgery for aortoiliac thrombosis (BLE pain), underwent lysis of bilateral ileofemoral arteries. Started on anticoagulation with coumadin, also on aspirin 81 daily - chart review shows INR frequently sub-therapeutic on admissions Plan: - Warfarin therapeutic for 24 hours. Stop heparin. - Scheduled for OPD appointment with Dr. Sher on 02/10/2014. - PVR study of the lower limbs unchanged from previous. Vertebral compression fracture 07/05/2013 1 06/23/2019 Spondylosis of lumbar region without myelopathy or radiculopathy 12/18/2012 07/24/2020 Rectal bleeding 11/13/2013 documented as of this encounter (statuses as of 09/17/2021) [facility]04-24-2020 History of Past illness Narrative* Problem Noted Date Resolved Date Hypophosphatemia 10/11/2019 10/13/2019 Overview: Replace prn Temporal arteritis 11/17/2017 11/09/2018 Seizure disorder 07/03/2017 07/10/2017 Hematoma, postoperative 07/07/2014 08/11/19 15 Overview: 07/07/2014 Left arm duplex LEFT SIDE Negative for pseudoaneurysm, deep vein thrombosis and arteriovenous fistula. Brachial artery patent . Hematoma noted in region of incision at mid to distal medial upper arm measuring approximately 5.31 x 1.29 x 3.31cm. 07/08/2014 Hematoma stable, continue fátima wrap at discharge Ulcerative colitis 06/24/2014 11/09/2018 Overview: Patient has UC and is on Azulide, there is apparent resolution of symptoms with medication Last Assessment & Plan: Patient has UC and is on Azulide, there is apparent resolution of symptoms with that. Acute blood loss anemia 01/28/2014 10/13/19 20 Overview: Transfuse 2 units PRBC intra-op 10/10/19 Transfuse 2 units PRBC post-op Last Assessment & Plan: Assessment: +h/o anemia, last CBC 03/2019 normal H/H, new labs pending Thrombosis 11/12/2013 02/10/2014 Overview: 11/12/13 s/p lysis catheter placemenst for aortoiliac thrombosis. On heparin and tPA at present. Erythema of groin 10/30/2013 02/10/2014 Overview: Patient recently discharge on oral regimen of bactrim for 2 week course (till 11/20/13) for recurrent groin erythema Pain, postoperative, acute 10/30/201302/10 Overview: Patient on 300 mg og Neurotoin BID at home Patient started on [place] postoperatively, pain controlled at time of discharge. Ischemia of extremity 10/14/2013 02/10/2014 Overview: - admitted to [facility] vascular surgery twice in October 2013, s/p left femoral endarterectomy with patch, US guided access RCFA, L profundaplasty, RUFUS recanalization & stenting, CRISPIN stenting on 10/23/13 for aorto-occlusive critical limb ischemia - S/p 11/12-11/19/13 [facility] for aortoiliac thrombosis (BLE pain), underwent lysis of bilateral ileofemoral arteries. Started on anticoagulation with coumadin, also on aspirin 81 daily - chart review shows INR frequently sub-therapeutic on admissions Plan: - Warfarin therapeutic for 24 hours. Stop heparin. - Scheduled for OPD appointment with Dr. Sher on 02/10/2014. - PVR study of the lower limbs unchanged from previous. Vertebral compression fracture 07/05/2013 1 06/23/2019 Spondylosis of lumbar region without myelopathy or radiculopathy 12/18/2012 07/24/2020 Rectal bleeding 11/13/2013 documented as of this encounter (statuses as of 09/18/2021) [facility]04-24-2020 History of Past illness Narrative* Problem Noted Date Resolved Date Hypophosphatemia 10/11/2019 10/13/2019 Overview: Replace prn Temporal arteritis 11/17/2017 11/09/2018 Seizure disorder 07/03/2017 07/10/2017 Hematoma, postoperative 07/07/2014 08/11/19 15 Overview: 07/07/2014 Left arm duplex LEFT SIDE Negative for pseudoaneurysm, deep vein thrombosis and arteriovenous fistula. Brachial artery patent . Hematoma noted in region of incision at mid to distal medial upper arm measuring approximately 5.31 x 1.29 x 3.31cm. 07/08/2014 Hematoma stable, continue fátima wrap at discharge Ulcerative colitis 06/24/2014 11/09/2018 Overview: Patient has UC and is on Azulide, there is apparent resolution of symptoms with medication Last Assessment & Plan: Patient has UC and is on Azulide, there is apparent resolution of symptoms with that. Acute blood loss anemia 01/28/2014 10/13/19 20 Overview: Transfuse 2 units PRBC intra-op 10/10/19 Transfuse 2 units PRBC post-op Last Assessment & Plan: Assessment: +h/o anemia, last CBC 03/2019 normal H/H, new labs pending Thrombosis 11/12/2013 02/10/2014 Overview: 11/12/13 s/p lysis catheter placemenst for aortoiliac thrombosis. On heparin and tPA at present. Erythema of groin 10/30/2013 02/10/2014 Overview: Patient recently discharge on oral regimen of bactrim for 2 week course (till 11/20/13) for recurrent groin erythema Pain, postoperative, acute 10/30/201302/10 Overview: Patient on 300 mg og Neurotoin BID at home Patient started on [place] postoperatively, pain controlled at time of discharge. Ischemia of extremity 10/14/2013 02/10/2014 Overview: - admitted to [facility] vascular surgery twice in October 2013, s/p left femoral endarterectomy with patch, US guided access RCFA, L profundaplasty, RUFUS recanalization & stenting, CRISPIN stenting on 10/23/13 for aorto-occlusive critical limb ischemia - S/p 11/12-11/19/13 [facility] for aortoiliac thrombosis (BLE pain), underwent lysis of bilateral ileofemoral arteries. Started on anticoagulation with coumadin, also on aspirin 81 daily - chart review shows INR frequently sub-therapeutic on admissions Plan: - Warfarin therapeutic for 24 hours. Stop heparin. - Scheduled for OPD appointment with Dr. Sher on 02/10/2014. - PVR study of the lower limbs unchanged from previous. Vertebral compression fracture 07/05/2013 1 06/23/2019 Spondylosis of lumbar region without myelopathy or radiculopathy 12/18/2012 07/24/2020 Rectal bleeding 11/13/2013 documented as of this encounter (statuses as of 09/20/2021) [facility]04-[facility]2020 History of Past illness Narrative* Problem Noted Date Resolved Date Hypophosphatemia 10/11/2019 10/13/2019 Overview: Replace prn Temporal arteritis 11/17/2017 11/09/2018 Seizure disorder 07/03/2017 07/10/2017 Hematoma, postoperative 07/07/2014 08/11/19 15 Overview: 07/07/2014 Left arm duplex LEFT SIDE Negative for pseudoaneurysm, deep vein thrombosis and arteriovenous fistula. Brachial artery patent . Hematoma noted in region of incision at mid to distal medial upper arm measuring approximately 5.31 x 1.29 x 3.31cm. 07/08/2014 Hematoma stable, continue fátima wrap at discharge Ulcerative colitis 06/24/2014 11/09/2018 Overview: Patient has UC and is on Azulide, there is apparent resolution of symptoms with medication Last Assessment & Plan: Patient has UC and is on Azulide, there is apparent resolution of symptoms with that. Acute blood loss anemia 01/28/2014 10/13/19 20 Overview: Transfuse 2 units PRBC intra-op 10/10/19 Transfuse 2 units PRBC post-op Last Assessment & Plan: Assessment: +h/o anemia, last CBC 03/2019 normal H/H, new labs pending Thrombosis 11/12/2013 02/10/2014 Overview: 11/12/13 s/p lysis catheter placemenst for aortoiliac thrombosis. On heparin and tPA at present. Erythema of groin 10/30/2013 02/10/2014 Overview: Patient recently discharge on oral regimen of bactrim for 2 week course (till 11/20/13) for recurrent groin erythema Pain, postoperative, acute 10/30/201302/10 Overview: Patient on 300 mg og Neurotoin BID at home Patient started on [place] postoperatively, pain controlled at time of discharge. Ischemia of extremity 10/14/2013 02/10/2014 Overview: - admitted to [facility] vascular surgery twice in October 2013, s/p left femoral endarterectomy with patch, US guided access RCFA, L profundaplasty, RUFUS recanalization & stenting, CRISPIN stenting on 10/23/13 for aorto-occlusive critical limb ischemia - S/p 11/12-11/19/13 [facility] for aortoiliac thrombosis (BLE pain), underwent lysis of bilateral ileofemoral arteries. Started on anticoagulation with coumadin, also on aspirin 81 daily - chart review shows INR frequently sub-therapeutic on admissions Plan: - Warfarin therapeutic for 24 hours. Stop heparin. - Scheduled for OPD appointment with Dr. Sher on 02/10/2014. - PVR study of the lower limbs unchanged from previous. Vertebral compression fracture 07/05/2013 1 06/23/2019 Spondylosis of lumbar region without myelopathy or radiculopathy 12/18/2012 07/24/2020 Rectal bleeding 11/13/2013 documented as of this encounter (statuses as of 09/21/2021) [facility]04-[facility]2020 History of Past illness Narrative* Problem Noted Date Resolved Date Hypophosphatemia 10/11/2019 10/13/2019 Overview: Replace prn Temporal arteritis 11/17/2017 11/09/2018 Seizure disorder 07/03/2017 07/10/2017 Hematoma, postoperative 07/07/2014 08/11/19 15 Overview: 07/07/2014 Left arm duplex LEFT SIDE Negative for pseudoaneurysm, deep vein thrombosis and arteriovenous fistula. Brachial artery patent . Hematoma noted in region of incision at mid to distal medial upper arm measuring approximately 5.31 x 1.29 x 3.31cm. 07/08/2014 Hematoma stable, continue fátima wrap at discharge Ulcerative colitis 06/24/2014 11/09/2018 Overview: Patient has UC and is on Azulide, there is apparent resolution of symptoms with medication Last Assessment & Plan: Patient has UC and is on Azulide, there is apparent resolution of symptoms with that. Acute blood loss anemia 01/28/2014 10/13/19 20 Overview: Transfuse 2 units PRBC intra-op 10/10/19 Transfuse 2 units PRBC post-op Last Assessment & Plan: Assessment: +h/o anemia, last CBC 03/2019 normal H/H, new labs pending Thrombosis 11/12/2013 02/10/2014 Overview: 11/12/13 s/p lysis catheter placemenst for aortoiliac thrombosis. On heparin and tPA at present. Erythema of groin 10/30/2013 02/10/2014 Overview: Patient recently discharge on oral regimen of bactrim for 2 week course (till 11/20/13) for recurrent groin erythema Pain, postoperative, acute 10/30/201302/10 Overview: Patient on 300 mg og Neurotoin BID at home Patient started on [place] postoperatively, pain controlled at time of discharge. Ischemia of extremity 10/14/2013 02/10/2014 Overview: - admitted to [facility] vascular surgery twice in October 2013, s/p left femoral endarterectomy with patch, US guided access RCFA, L profundaplasty, RUFUS recanalization & stenting, CRISPIN stenting on 10/23/13 for aorto-occlusive critical limb ischemia - S/p 11/12-11/19/13 [facility] Vascular Surgery for aortoiliac thrombosis (BLE pain), underwent lysis of bilateral ileofemoral arteries. Started on anticoagulation with coumadin, also on aspirin 81 daily - chart review shows INR frequently sub-therapeutic on admissions Plan: - Warfarin therapeutic for 24 hours. Stop heparin. - Scheduled for OPD appointment with Dr. Sher on 02/10/2014. - PVR study of the lower limbs unchanged from previous. Vertebral compression fracture 07/05/2013 1 06/23/2019 Spondylosis of lumbar region without myelopathy or radiculopathy 12/18/2012 07/24/2020 Rectal bleeding 11/13/2013 documented as of this encounter (statuses as of 09/22/2021) [facility]04-24-2020 History of Past illness Narrative* Problem Noted Date Resolved Date Hypophosphatemia 10/11/2019 10/13/2019 Overview: Replace prn Temporal arteritis 11/17/2017 11/09/2018 Seizure disorder 07/03/2017 07/10/2017 Hematoma, postoperative 07/07/2014 08/11/19 15 Overview: 07/07/2014 Left arm duplex LEFT SIDE Negative for pseudoaneurysm, deep vein thrombosis and arteriovenous fistula. Brachial artery patent . Hematoma noted in region of incision at mid to distal medial upper arm measuring approximately 5.31 x 1.29 x 3.31cm. 07/08/2014 Hematoma stable, continue fátima wrap at discharge Ulcerative colitis 06/24/2014 11/09/2018 Overview: Patient has UC and is on Azulide, there is apparent resolution of symptoms with medication Last Assessment & Plan: Patient has UC and is on Azulide, there is apparent resolution of symptoms with that. Acute blood loss anemia 01/28/2014 10/13/19 20 Overview: Transfuse 2 units PRBC intra-op 10/10/19 Transfuse 2 units PRBC post-op Last Assessment & Plan: Assessment: +h/o anemia, last CBC 03/2019 normal H/H, new labs pending Thrombosis 11/12/2013 02/10/2014 Overview: 11/12/13 s/p lysis catheter placemenst for aortoiliac thrombosis. On heparin and tPA at present. Erythema of groin 10/30/2013 02/10/2014 Overview: Patient recently discharge on oral regimen of bactrim for 2 week course (till 11/20/13) for recurrent groin erythema Pain, postoperative, acute 10/30/201302/10 Overview: Patient on 300 mg og Neurotoin BID at home Patient started on [place] postoperatively, pain controlled at time of discharge. Ischemia of extremity 10/14/2013 02/10/2014 Overview: - admitted to [facility] vascular surgery twice in October 2013, s/p left femoral endarterectomy with patch, US guided access RCFA, L profundaplasty, RUFUS recanalization & stenting, CRISPIN stenting on 10/23/13 for aorto-occlusive critical limb ischemia - S/p 11/12-11/19/13 [facility] Vascular Surgery for aortoiliac thrombosis (BLE pain), underwent lysis of bilateral ileofemoral arteries. Started on anticoagulation with coumadin, also on aspirin 81 daily - chart review shows INR frequently sub-therapeutic on admissions Plan: - Warfarin therapeutic for 24 hours. Stop heparin. - Scheduled for OPD appointment with Dr. Sher on 02/10/2014. - PVR study of the lower limbs unchanged from previous. Vertebral compression fracture 07/05/2013 1 06/23/2019 Spondylosis of lumbar region without myelopathy or radiculopathy 12/18/2012 07/24/2020 Rectal bleeding 11/13/2013 documented as of this encounter (statuses as of 09/29/2021) [facility]04-24-2020 History of Past illness Narrative* Problem Noted Date Resolved Date Hypophosphatemia 10/11/2019 10/13/2019 Overview: Replace prn Temporal arteritis 11/17/2017 11/09/2018 Seizure disorder 07/03/2017 07/10/2017 Hematoma, postoperative 07/07/2014 08/11/19 15 Overview: 07/07/2014 Left arm duplex LEFT SIDE Negative for pseudoaneurysm, deep vein thrombosis and arteriovenous fistula. Brachial artery patent . Hematoma noted in region of incision at mid to distal medial upper arm measuring approximately 5.31 x 1.29 x 3.31cm. 07/08/2014 Hematoma stable, continue fátima wrap at discharge Ulcerative colitis 06/24/2014 11/09/2018 Overview: Patient has UC and is on Azulide, there is apparent resolution of symptoms with medication Last Assessment & Plan: Patient has UC and is on Azulide, there is apparent resolution of symptoms with that. Acute blood loss anemia 01/28/2014 10/13/19 20 Overview: Transfuse 2 units PRBC intra-op 10/10/19 Transfuse 2 units PRBC post-op Last Assessment & Plan: Assessment: +h/o anemia, last CBC 03/2019 normal H/H, new labs pending Thrombosis 11/12/2013 02/10/2014 Overview: 11/12/13 s/p lysis catheter placemenst for aortoiliac thrombosis. On heparin and tPA at present. Erythema of groin 10/30/2013 02/10/2014 Overview: Patient recently discharge on oral regimen of bactrim for 2 week course (till 11/20/13) for recurrent groin erythema Pain, postoperative, acute 10/30/201302/10 Overview: Patient on 300 mg og Neurotoin BID at home Patient started on [place] postoperatively, pain controlled at time of discharge. Ischemia of extremity 10/14/2013 02/10/2014 Overview: - admitted to [facility] vascular surgery twice in October 2013, s/p left femoral endarterectomy with patch, US guided access RCFA, L profundaplasty, RUFUS recanalization & stenting, CRISPIN stenting on 10/23/13 for aorto-occlusive critical limb ischemia - S/p 11/12-11/19/13 [facility] Vascular Surgery for aortoiliac thrombosis (BLE pain), underwent lysis of bilateral ileofemoral arteries. Started on anticoagulation with coumadin, also on aspirin 81 daily - chart review shows INR frequently sub-therapeutic on admissions Plan: - Warfarin therapeutic for 24 hours. Stop heparin. - Scheduled for OPD appointment with Dr. Sher on 02/10/2014. - PVR study of the lower limbs unchanged from previous. Vertebral compression fracture 07/05/2013 1 06/23/2019 Spondylosis of lumbar region without myelopathy or radiculopathy 12/18/2012 07/24/2020 Rectal bleeding 11/13/2013 documented as of this encounter (statuses as of 10/04/2021) [facility]04-24-2020 History of Past illness Narrative* Problem Noted Date Resolved Date Hypophosphatemia 10/11/2019 10/13/2019 Overview: Replace prn Temporal arteritis 11/17/2017 11/09/2018 Seizure disorder 07/03/2017 07/10/2017 Hematoma, postoperative 07/07/2014 08/11/19 15 Overview: 07/07/2014 Left arm duplex LEFT SIDE Negative for pseudoaneurysm, deep vein thrombosis and arteriovenous fistula. Brachial artery patent . Hematoma noted in region of incision at mid to distal medial upper arm measuring approximately 5.31 x 1.29 x 3.31cm. 07/08/2014 Hematoma stable, continue fátima wrap at discharge Ulcerative colitis 06/24/2014 11/09/2018 Overview: Patient has UC and is on Azulide, there is apparent resolution of symptoms with medication Last Assessment & Plan: Patient has UC and is on Azulide, there is apparent resolution of symptoms with that. Acute blood loss anemia 01/28/2014 10/13/19 Overview: Transfuse 2 units PRBC intra-op 10/10/19 Transfuse 2 units PRBC post-op Last Assessment & Plan: Assessment: +h/o anemia, last CBC 03/2019 normal H/H, new labs pending Thrombosis 11/12/2013 02/10/2014 Overview: 11/12/13 s/p lysis catheter placemenst for aortoiliac thrombosis. On heparin and tPA at present. Erythema of groin 10/30/2013 02/10/2014 Overview: Patient recently discharge on oral regimen of bactrim for 2 week course (till 11/20/13) for recurrent groin erythema Pain, postoperative, acute 10/30/201302/10 Overview: Patient on 300 mg og Neurotoin BID at home Patient started on [place] postoperatively, pain controlled at time of discharge. Ischemia of extremity 10/14/2013 02/10/2014 Overview: - admitted to [facility] vascular surgery twice in October 2013, s/p left femoral endarterectomy with patch, US guided access RCFA, L profundaplasty, RUFUS recanalization & stenting, CRISPIN stenting on 10/23/13 for aorto-occlusive critical limb ischemia - S/p 11/12-11/19/13 [facility] Vascular Surgery for aortoiliac thrombosis (BLE pain), underwent lysis of bilateral ileofemoral arteries. Started on anticoagulation with coumadin, also on aspirin 81 daily - chart review shows INR frequently sub-therapeutic on admissions Plan: - Warfarin therapeutic for 24 hours. Stop heparin. - Scheduled for OPD appointment with Dr. Sher on 02/10/2014. - PVR study of the lower limbs unchanged from previous. Vertebral compression fracture 07/05/2013 1 06/23/2019 Spondylosis of lumbar region without myelopathy or radiculopathy 12/18/2012 07/24/2020 Rectal bleeding 11/13/2013 documented as of this encounter (statuses as of 10/06/2021) [facility]04-24-2020 History of Past illness Narrative* Problem Noted Date Resolved Date Hypophosphatemia 10/11/2019 10/13/2019 Overview: Replace prn Temporal arteritis 11/17/2017 11/09/2018 Seizure disorder 07/03/2017 07/10/2017 Hematoma, postoperative 07/07/2014 08/11/19 15 Overview: 07/07/2014 Left arm duplex LEFT SIDE Negative for pseudoaneurysm, deep vein thrombosis and arteriovenous fistula. Brachial artery patent . Hematoma noted in region of incision at mid to distal medial upper arm measuring approximately 5.31 x 1.29 x 3.31cm. 07/08/2014 Hematoma stable, continue fátima wrap at discharge Ulcerative colitis 06/24/2014 11/09/2018 Overview: Patient has UC and is on Azulide, there is apparent resolution of symptoms with medication Last Assessment & Plan: Patient has UC and is on Azulide, there is apparent resolution of symptoms with that. Acute blood loss anemia 01/28/2014 10/13/19 20 Overview: Transfuse 2 units PRBC intra-op 10/10/19 Transfuse 2 units PRBC post-op Last Assessment & Plan: Assessment: +h/o anemia, last CBC 03/2019 normal H/H, new labs pending Thrombosis 11/12/2013 02/10/2014 Overview: 11/12/13 s/p lysis catheter placemenst for aortoiliac thrombosis. On heparin and tPA at present. Erythema of groin 10/30/2013 02/10/2014 Overview: Patient recently discharge on oral regimen of bactrim for 2 week course (till 11/20/13) for recurrent groin erythema Pain, postoperative, acute 10/30/201302/10 Overview: Patient on 300 mg og Neurotoin BID at home Patient started on [place] postoperatively, pain controlled at time of discharge. Ischemia of extremity 10/14/2013 02/10/2014 Overview: - admitted to [facility] vascular surgery twice in October 2013, s/p left femoral endarterectomy with patch, US guided access RCFA, L profundaplasty, RUFUS recanalization & stenting, CRISPIN stenting on 10/23/13 for aorto-occlusive critical limb ischemia - S/p 11/12-11/19/13 [facility] Vascular Surgery for aortoiliac thrombosis (BLE pain), underwent lysis of bilateral ileofemoral arteries. Started on anticoagulation with coumadin, also on aspirin 81 daily - chart review shows INR frequently sub-therapeutic on admissions Plan: - Warfarin therapeutic for 24 hours. Stop heparin. - Scheduled for OPD appointment with Dr. Sher on 02/10/2014. - PVR study of the lower limbs unchanged from previous. Vertebral compression fracture 07/05/2013 1 06/23/2019 Spondylosis of lumbar region without myelopathy or radiculopathy 12/18/2012 07/24/2020 Rectal bleeding 11/13/2013 documented as of this encounter (statuses as of 10/07/2021) [facility]04-24-2020 History of Past illness Narrative* Problem Noted Date Resolved Date Hypophosphatemia 10/11/2019 10/13/2019 Overview: Replace prn Temporal arteritis 11/17/2017 11/09/2018 Seizure disorder 07/03/2017 07/10/2017 Hematoma, postoperative 07/07/2014 08/11/19 15 Overview: 07/07/2014 Left arm duplex LEFT SIDE Negative for pseudoaneurysm, deep vein thrombosis and arteriovenous fistula. Brachial artery patent . Hematoma noted in region of incision at mid to distal medial upper arm measuring approximately 5.31 x 1.29 x 3.31cm. 07/08/2014 Hematoma stable, continue fátima wrap at discharge Ulcerative colitis 06/24/2014 11/09/2018 Overview: Patient has UC and is on Azulide, there is apparent resolution of symptoms with medication Last Assessment & Plan: Patient has UC and is on Azulide, there is apparent resolution of symptoms with that. Acute blood loss anemia 01/28/2014 10/13/19 20 Overview: Transfuse 2 units PRBC intra-op 10/10/19 Transfuse 2 units PRBC post-op Last Assessment & Plan: Assessment: +h/o anemia, last CBC 03/2019 normal H/H, new labs pending Thrombosis 11/12/2013 02/10/2014 Overview: 11/12/13 s/p lysis catheter placemenst for aortoiliac thrombosis. On heparin and tPA at present. Erythema of groin 10/30/2013 02/10/2014 Overview: Patient recently discharge on oral regimen of bactrim for 2 week course (till 11/20/13) for recurrent groin erythema Pain, postoperative, acute 10/30/201302/10 Overview: Patient on 300 mg og Neurotoin BID at home Patient started on [place] postoperatively, pain controlled at time of discharge. Ischemia of extremity 10/14/2013 02/10/2014 Overview: - admitted to [facility] vascular surgery twice in October 2013, s/p left femoral endarterectomy with patch, US guided access RCFA, L profundaplasty, RUFUS recanalization & stenting, CRISPIN stenting on 10/23/13 for aorto-occlusive critical limb ischemia - S/p 11/12-11/19/13 [facility] V[facility] Surgery for aortoiliac thrombosis (BLE pain), underwent lysis of bilateral ileofemoral arteries. Started on anticoagulation with coumadin, also on aspirin 81 daily - chart review shows INR frequently sub-therapeutic on admissions Plan: - Warfarin therapeutic for 24 hours. Stop heparin. - Scheduled for OPD appointment with Dr. Sher on 02/10/2014. - PVR study of the lower limbs unchanged from previous. Vertebral compression fracture 07/05/2013 1 06/23/2019 Spondylosis of lumbar region without myelopathy or radiculopathy 12/18/2012 07/24/2020 Rectal bleeding 11/13/2013 documented as of this encounter (statuses as of 10/07/2021) [facility]04-[facility]2020 History of Past illness Narrative* Problem Noted Date Resolved Date Hypophosphatemia 10/11/2019 10/13/2019 Overview: Replace prn Temporal arteritis 11/17/2017 11/09/2018 Seizure disorder 07/03/2017 07/10/2017 Hematoma, postoperative 07/07/2014 08/11/19 15 Overview: 07/07/2014 Left arm duplex LEFT SIDE Negative for pseudoaneurysm, deep vein thrombosis and arteriovenous fistula. Brachial artery patent . Hematoma noted in region of incision at mid to distal medial upper arm measuring approximately 5.31 x 1.29 x 3.31cm. 07/08/2014 Hematoma stable, continue fátima wrap at discharge Ulcerative colitis 06/24/2014 11/09/2018 Overview: Patient has UC and is on Azulide, there is apparent resolution of symptoms with medication Last Assessment & Plan: Patient has UC and is on Azulide, there is apparent resolution of symptoms with that. Acute blood loss anemia 01/28/2014 10/13/19 20 Overview: Transfuse 2 units PRBC intra-op 10/10/19 Transfuse 2 units PRBC post-op Last Assessment & Plan: Assessment: +h/o anemia, last CBC 03/2019 normal H/H, new labs pending Thrombosis 11/12/2013 02/10/2014 Overview: 11/12/13 s/p lysis catheter placemenst for aortoiliac thrombosis. On heparin and tPA at present. Erythema of groin 10/30/2013 02/10/2014 Overview: Patient recently discharge on oral regimen of bactrim for 2 week course (till 11/20/13) for recurrent groin erythema Pain, postoperative, acute 10/30/201302/10 Overview: Patient on 300 mg og Neurotoin BID at home Patient started on [place] postoperatively, pain controlled at time of discharge. Ischemia of extremity 10/14/2013 02/10/2014 Overview: - admitted to [facility] vascular surgery twice in October 2013, s/p left femoral endarterectomy with patch, US guided access RCFA, L profundaplasty, RUFUS recanalization & stenting, CRISPIN stenting on 10/23/13 for aorto-occlusive critical limb ischemia - S/p 11/12-11/19/13 [facility] Vascular Surgery for aortoiliac thrombosis (BLE pain), underwent lysis of bilateral ileofemoral arteries. Started on anticoagulation with coumadin, also on aspirin 81 daily - chart review shows INR frequently sub-therapeutic on admissions Plan: - Warfarin therapeutic for 24 hours. Stop heparin. - Scheduled for OPD appointment with Dr. Sher on 02/10/2014. - PVR study of the lower limbs unchanged from previous. Vertebral compression fracture 07/05/2013 1 06/23/2019 Spondylosis of lumbar region without myelopathy or radiculopathy 12/18/2012 07/24/2020 Rectal bleeding 11/13/2013 documented as of this encounter (statuses as of 10/08/2021) [facility]04-[facility]2020 History of Past illness Narrative* Problem Noted Date Resolved Date Hypophosphatemia 10/11/2019 10/13/2019 Overview: Replace prn Temporal arteritis 11/17/2017 11/09/2018 Seizure disorder 07/03/2017 07/10/2017 Hematoma, postoperative 07/07/2014 08/11/19 Overview: 07/07/2014 Left arm duplex LEFT SIDE Negative for pseudoaneurysm, deep vein thrombosis and arteriovenous fistula. Brachial artery patent . Hematoma noted in region of incision at mid to distal medial upper arm measuring approximately 5.31 x 1.29 x 3.31cm. 07/08/2014 Hematoma stable, continue fátima wrap at discharge Ulcerative colitis 06/24/2014 11/09/2018 Overview: Patient has UC and is on Azulide, there is apparent resolution of symptoms with medication Last Assessment & Plan: Patient has UC and is on Azulide, there is apparent resolution of symptoms with that. Acute blood loss anemia 01/28/2014 10/13/19 Overview: Transfuse 2 units PRBC intra-op 10/10/19 Transfuse 2 units PRBC post-op Last Assessment & Plan: Assessment: +h/o anemia, last CBC 03/2019 normal H/H, new labs pending Thrombosis 11/12/2013 02/10/2014 Overview: 11/12/13 s/p lysis catheter placemenst for aortoiliac thrombosis. On heparin and tPA at present. Erythema of groin 10/30/2013 02/10/2014 Overview: Patient recently discharge on oral regimen of bactrim for 2 week course (till 11/20/13) for recurrent groin erythema Pain, postoperative, acute 10/30/201302/10 Overview: Patient on 300 mg og Neurotoin BID at home Patient started on [place] postoperatively, pain controlled at time of discharge. Ischemia of extremity 10/14/2013 02/10/2014 Overview: - admitted to [facility] vascular surgery twice in October 2013, s/p left femoral endarterectomy with patch, US guided access RCFA, L profundaplasty, RUFUS recanalization & stenting, CRISPIN stenting on 10/23/13 for aorto-occlusive critical limb ischemia - S/p 11/12-11/19/13 [facility] Surgery for aortoiliac thrombosis (BLE pain), underwent lysis of bilateral ileofemoral arteries. Started on anticoagulation with coumadin, also on aspirin 81 daily - chart review shows INR frequently sub-therapeutic on admissions Plan: - Warfarin therapeutic for 24 hours. Stop heparin. - Scheduled for OPD appointment with Dr. Sher on 02/10/2014. - PVR study of the lower limbs unchanged from previous. Vertebral compression fracture 07/05/2013 1 06/23/2019 Spondylosis of lumbar region without myelopathy or radiculopathy 12/18/2012 07/24/2020 Rectal bleeding 11/13/2013 documented as of this encounter (statuses as of 10/13/2021) [facility]04[facility] History of Past illness Narrative* Problem Noted Date Resolved Date Hypophosphatemia 10/11/2019 10/13/2019 Overview: Replace prn Temporal arteritis 11/17/2017 11/09/2018 Seizure disorder 07/03/2017 07/10/2017 Hematoma, postoperative 07/07/2014 08/11/19 15 Overview: 07/07/2014 Left arm duplex LEFT SIDE Negative for pseudoaneurysm, deep vein thrombosis and arteriovenous fistula. Brachial artery patent . Hematoma noted in region of incision at mid to distal medial upper arm measuring approximately 5.31 x 1.29 x 3.31cm. 07/08/2014 Hematoma stable, continue fátima wrap at discharge Ulcerative colitis 06/24/2014 11/09/2018 Overview: Patient has UC and is on Azulide, there is apparent resolution of symptoms with medication Last Assessment & Plan: Patient has UC and is on Azulide, there is apparent resolution of symptoms with that. Acute blood loss anemia 01/28/2014 10/13/19 20 Overview: Transfuse 2 units PRBC intra-op 10/10/19 Transfuse 2 units PRBC post-op Last Assessment & Plan: Assessment: +h/o anemia, last CBC 03/2019 normal H/H, new labs pending Thrombosis 11/12/2013 02/10/2014 Overview: 11/12/13 s/p lysis catheter placemenst for aortoiliac thrombosis. On heparin and tPA at present. Erythema of groin 10/30/2013 02/10/2014 Overview: Patient recently discharge on oral regimen of bactrim for 2 week course (till 11/20/13) for recurrent groin erythema Pain, postoperative, acute 10/30/201302/10 Overview: Patient on 300 mg og Neurotoin BID at home Patient started on [place] postoperatively, pain controlled at time of discharge. Ischemia of extremity 10/14/2013 02/10/2014 Overview: - admitted to [facility] vascular surgery twice in October 2013, s/p left femoral endarterectomy with patch, US guided access RCFA, L profundaplasty, RUFUS recanalization & stenting, CRISPIN stenting on 10/23/13 for aorto-occlusive critical limb ischemia - S/p 11/12-11/19/13 [facility] Vascular Surgery for aortoiliac thrombosis (BLE pain), underwent lysis of bilateral ileofemoral arteries. Started on anticoagulation with coumadin, also on aspirin 81 daily - chart review shows INR frequently sub-therapeutic on admissions Plan: - Warfarin therapeutic for 24 hours. Stop heparin. - Scheduled for OPD appointment with Dr. Sher on 02/10/2014. - PVR study of the lower limbs unchanged from previous. Vertebral compression fracture 07/05/2013 1 06/23/2019 Spondylosis of lumbar region without myelopathy or radiculopathy 12/18/2012 07/24/2020 Rectal bleeding 11/13/2013 documented as of this encounter (statuses as of 10/13/2021) [facility] History of Past illness Narrative* Problem Noted Date Resolved Date Hypophosphatemia 10/11/2019 10/13/2019 Overview: Replace prn Temporal arteritis 11/17/2017 11/09/2018 Seizure disorder 07/03/2017 07/10/2017 Hematoma, postoperative 07/07/2014 08/11/19 Overview: 07/07/2014 Left arm duplex LEFT SIDE Negative for pseudoaneurysm, deep vein thrombosis and arteriovenous fistula. Brachial artery patent . Hematoma noted in region of incision at mid to distal medial upper arm measuring approximately 5.31 x 1.29 x 3.31cm. 07/08/2014 Hematoma stable, continue fátima wrap at discharge Ulcerative colitis 06/24/2014 11/09/2018 Overview: Patient has UC and is on Azulide, there is apparent resolution of symptoms with medication Last Assessment & Plan: Patient has UC and is on Azulide, there is apparent resolution of symptoms with that. Acute blood loss anemia 01/28/2014 10/13/19 Overview: Transfuse 2 units PRBC intra-op 10/10/19 Transfuse 2 units PRBC post-op Last Assessment & Plan: Assessment: +h/o anemia, last CBC 03/2019 normal H/H, new labs pending Thrombosis 11/12/2013 02/10/2014 Overview: 11/12/13 s/p lysis catheter placemenst for aortoiliac thrombosis. On heparin and tPA at present. Erythema of groin 10/30/2013 02/10/2014 Overview: Patient recently discharge on oral regimen of bactrim for 2 week course (till 11/20/13) for recurrent groin erythema Pain, postoperative, acute 10/30/201302/10 Overview: Patient on 300 mg og Neurotoin BID at home Patient started on [place] postoperatively, pain controlled at time of discharge. Ischemia of extremity 10/14/2013 02/10/2014 Overview: - admitted to [facility] vascular surgery twice in October 2013, s/p left femoral endarterectomy with patch, US guided access RCFA, L profundaplasty, RUFUS recanalization & stenting, CRISPIN stenting on 10/23/13 for aorto-occlusive critical limb ischemia - S/p 11/12-11/19/13 [facility] Vascular Surgery for aortoiliac thrombosis (BLE pain), underwent lysis of bilateral ileofemoral arteries. Started on anticoagulation with coumadin, also on aspirin 81 daily - chart review shows INR frequently sub-therapeutic on admissions Plan: - Warfarin therapeutic for 24 hours. Stop heparin. - Scheduled for OPD appointment with Dr. Sher on 02/10/2014. - PVR study of the lower limbs unchanged from previous. Vertebral compression fracture 07/05/2013 1 06/23/2019 Spondylosis of lumbar region without myelopathy or radiculopathy 12/18/2012 07/24/2020 Rectal bleeding 11/13/2013 documented as of this encounter (statuses as of 10/14/2021) [facility]04-24-2020 History of Past illness Narrative* Problem Noted Date Resolved Date Hypophosphatemia 10/11/2019 10/13/2019 Overview: Replace prn Temporal arteritis 11/17/2017 11/09/2018 Seizure disorder 07/03/2017 07/10/2017 Hematoma, postoperative 07/07/2014 08/11/19 15 Overview: 07/07/2014 Left arm duplex LEFT SIDE Negative for pseudoaneurysm, deep vein thrombosis and arteriovenous fistula. Brachial artery patent . Hematoma noted in region of incision at mid to distal medial upper arm measuring approximately 5.31 x 1.29 x 3.31cm. 07/08/2014 Hematoma stable, continue fátima wrap at discharge Ulcerative colitis 06/24/2014 11/09/2018 Overview: Patient has UC and is on Azulide, there is apparent resolution of symptoms with medication Last Assessment & Plan: Patient has UC and is on Azulide, there is apparent resolution of symptoms with that. Acute blood loss anemia 01/28/2014 10/13/19 20 Overview: Transfuse 2 units PRBC intra-op 10/10/19 Transfuse 2 units PRBC post-op Last Assessment & Plan: Assessment: +h/o anemia, last CBC 03/2019 normal H/H, new labs pending Thrombosis 11/12/2013 02/10/2014 Overview: 11/12/13 s/p lysis catheter placemenst for aortoiliac thrombosis. On heparin and tPA at present. Erythema of groin 10/30/2013 02/10/2014 Overview: Patient recently discharge on oral regimen of bactrim for 2 week course (till 11/20/13) for recurrent groin erythema Pain, postoperative, acute 10/30/201302/10 Overview: Patient on 300 mg og Neurotoin BID at home Patient started on [place] postoperatively, pain controlled at time of discharge. Ischemia of extremity 10/14/2013 02/10/2014 Overview: - admitted to [facility] vascular surgery twice in October 2013, s/p left femoral endarterectomy with patch, US guided access RCFA, L profundaplasty, RUFUS recanalization & stenting, CRISPIN stenting on 10/23/13 for aorto-occlusive critical limb ischemia - S/p 11/12-11/19/13 [facility] Vascular Surgery for aortoiliac thrombosis (BLE pain), underwent lysis of bilateral ileofemoral arteries. Started on anticoagulation with coumadin, also on aspirin 81 daily - chart review shows INR frequently sub-therapeutic on admissions Plan: - Warfarin therapeutic for 24 hours. Stop heparin. - Scheduled for OPD appointment with Dr. Sher on 02/10/2014. - PVR study of the lower limbs unchanged from previous. Vertebral compression fracture 07/05/2013 1 06/23/2019 Spondylosis of lumbar region without myelopathy or radiculopathy 12/18/2012 07/24/2020 Rectal bleeding 11/13/2013 documented as of this encounter (statuses as of 10/18/2021) [facility]04-24-2020 History of Past illness Narrative* Problem Noted Date Resolved Date Hypophosphatemia 10/11/2019 10/13/2019 Overview: Replace prn Temporal arteritis 11/17/2017 11/09/2018 Seizure disorder 07/03/2017 07/10/2017 Hematoma, postoperative 07/07/2014 08/11/19 Overview: 07/07/2014 Left arm duplex LEFT SIDE Negative for pseudoaneurysm, deep vein thrombosis and arteriovenous fistula. Brachial artery patent . Hematoma noted in region of incision at mid to distal medial upper arm measuring approximately 5.31 x 1.29 x 3.31cm. 07/08/2014 Hematoma stable, continue fátima wrap at discharge Ulcerative colitis 06/24/2014 11/09/2018 Overview: Patient has UC and is on Azulide, there is apparent resolution of symptoms with medication Last Assessment & Plan: Patient has UC and is on Azulide, there is apparent resolution of symptoms with that. Acute blood loss anemia 01/28/2014 10/13/19 Overview: Transfuse 2 units PRBC intra-op 10/10/19 Transfuse 2 units PRBC post-op Last Assessment & Plan: Assessment: +h/o anemia, last CBC 03/2019 normal H/H, new labs pending Thrombosis 11/12/2013 02/10/2014 Overview: 11/12/13 s/p lysis catheter placemenst for aortoiliac thrombosis. On heparin and tPA at present. Erythema of groin 10/30/2013 02/10/2014 Overview: Patient recently discharge on oral regimen of bactrim for 2 week course (till 11/20/13) for recurrent groin erythema Pain, postoperative, acute 10/30/201302/10 Overview: Patient on 300 mg og Neurotoin BID at home Patient started on [place] postoperatively, pain controlled at time of discharge. Ischemia of extremity 10/14/2013 02/10/2014 Overview: - admitted to [facility] vascular surgery twice in October 2013, s/p left femoral endarterectomy with patch, US guided access RCFA, L profundaplasty, RUFUS recanalization & stenting, CRISPIN stenting on 10/23/13 for aorto-occlusive critical limb ischemia - S/p 11/12-11/19/13 [facility] Vascular Surgery for aortoiliac thrombosis (BLE pain), underwent lysis of bilateral ileofemoral arteries. Started on anticoagulation with coumadin, also on aspirin 81 daily - chart review shows INR frequently sub-therapeutic on admissions Plan: - Warfarin therapeutic for 24 hours. Stop heparin. - Scheduled for OPD appointment with Dr. Sher on 02/10/2014. - PVR study of the lower limbs unchanged from previous. Vertebral compression fracture 07/05/2013 1 06/23/2019 Spondylosis of lumbar region without myelopathy or radiculopathy 12/18/2012 07/24/2020 Rectal bleeding 11/13/2013 documented as of this encounter (statuses as of 10/21/2021) [facility]04-24-2020 History of Past illness Narrative* Problem Noted Date Resolved Date Hypophosphatemia 10/11/2019 10/13/2019 Overview: Replace prn Temporal arteritis 11/17/2017 11/09/2018 Seizure disorder 07/03/2017 07/10/2017 Hematoma, postoperative 07/07/2014 08/11/19 15 Overview: 07/07/2014 Left arm duplex LEFT SIDE Negative for pseudoaneurysm, deep vein thrombosis and arteriovenous fistula. Brachial artery patent . Hematoma noted in region of incision at mid to distal medial upper arm measuring approximately 5.31 x 1.29 x 3.31cm. 07/08/2014 Hematoma stable, continue fátima wrap at discharge Ulcerative colitis 06/24/2014 11/09/2018 Overview: Patient has UC and is on Azulide, there is apparent resolution of symptoms with medication Last Assessment & Plan: Patient has UC and is on Azulide, there is apparent resolution of symptoms with that. Acute blood loss anemia 01/28/2014 10/13/19 20 Overview: Transfuse 2 units PRBC intra-op 10/10/19 Transfuse 2 units PRBC post-op Last Assessment & Plan: Assessment: +h/o anemia, last CBC 03/2019 normal H/H, new labs pending Thrombosis 11/12/2013 02/10/2014 Overview: 11/12/13 s/p lysis catheter placemenst for aortoiliac thrombosis. On heparin and tPA at present. Erythema of groin 10/30/2013 02/10/2014 Overview: Patient recently discharge on oral regimen of bactrim for 2 week course (till 11/20/13) for recurrent groin erythema Pain, postoperative, acute 10/30/201302/10 Overview: Patient on 300 mg og Neurotoin BID at home Patient started on [place] postoperatively, pain controlled at time of discharge. Ischemia of extremity 10/14/2013 02/10/2014 Overview: - admitted to [facility] vascular surgery twice in October 2013, s/p left femoral endarterectomy with patch, US guided access RCFA, L profundaplasty, RUFUS recanalization & stenting, CRISPIN stenting on 10/23/13 for aorto-occlusive critical limb ischemia - S/p 11/12-11/19/13 [facility] Vascular Surgery for aortoiliac thrombosis (BLE pain), underwent lysis of bilateral ileofemoral arteries. Started on anticoagulation with coumadin, also on aspirin 81 daily - chart review shows INR frequently sub-therapeutic on admissions Plan: - Warfarin therapeutic for 24 hours. Stop heparin. - Scheduled for OPD appointment with Dr. Sher on 02/10/2014. - PVR study of the lower limbs unchanged from previous. Vertebral compression fracture 07/05/2013 1 06/23/2019 Spondylosis of lumbar region without myelopathy or radiculopathy 12/18/2012 07/24/2020 Rectal bleeding 11/13/2013 documented as of this encounter (statuses as of 10/21/2021) [facility]04-24-2020 History of Past illness Narrative* Problem Noted Date Resolved Date Hypophosphatemia 10/11/2019 10/13/2019 Overview: Replace prn Temporal arteritis 11/17/2017 11/09/2018 Seizure disorder 07/03/2017 07/10/2017 Hematoma, postoperative 07/07/2014 08/11/19 15 Overview: 07/07/2014 Left arm duplex LEFT SIDE Negative for pseudoaneurysm, deep vein thrombosis and arteriovenous fistula. Brachial artery patent . Hematoma noted in region of incision at mid to distal medial upper arm measuring approximately 5.31 x 1.29 x 3.31cm. 07/08/2014 Hematoma stable, continue fátima wrap at discharge Ulcerative colitis 06/24/2014 11/09/2018 Overview: Patient has UC and is on Azulide, there is apparent resolution of symptoms with medication Last Assessment & Plan: Patient has UC and is on Azulide, there is apparent resolution of symptoms with that. Acute blood loss anemia 01/28/2014 10/13/19 20 Overview: Transfuse 2 units PRBC intra-op 10/10/19 Transfuse 2 units PRBC post-op Last Assessment & Plan: Assessment: +h/o anemia, last CBC 03/2019 normal H/H, new labs pending Thrombosis 11/12/2013 02/10/2014 Overview: 11/12/13 s/p lysis catheter placemenst for aortoiliac thrombosis. On heparin and tPA at present. Erythema of groin 10/30/2013 02/10/2014 Overview: Patient recently discharge on oral regimen of bactrim for 2 week course (till 11/20/13) for recurrent groin erythema Pain, postoperative, acute 10/30/201302/10 Overview: Patient on 300 mg og Neurotoin BID at home Patient started on [place] postoperatively, pain controlled at time of discharge. Ischemia of extremity 10/14/2013 02/10/2014 Overview: - admitted to [facility] vascular surgery twice in October 2013, s/p left femoral endarterectomy with patch, US guided access RCFA, L profundaplasty, RUFUS recanalization & stenting, CRISPIN stenting on 10/23/13 for aorto-occlusive critical limb ischemia - S/p 11/12-11/19/13 [facility] Vascular Surgery for aortoiliac thrombosis (BLE pain), underwent lysis of bilateral ileofemoral arteries. Started on anticoagulation with coumadin, also on aspirin 81 daily - chart review shows INR frequently sub-therapeutic on admissions Plan: - Warfarin therapeutic for 24 hours. Stop heparin. - Scheduled for OPD appointment with Dr. Sher on 02/10/2014. - PVR study of the lower limbs unchanged from previous. Vertebral compression fracture 07/05/2013 1 06/23/2019 Spondylosis of lumbar region without myelopathy or radiculopathy 12/18/2012 07/24/2020 Rectal bleeding 11/13/2013 documented as of this encounter (statuses as of 10/22/2021) [facility]04-24-2020 History of Past illness Narrative* Problem Noted Date Resolved Date Hypophosphatemia 10/11/2019 10/13/2019 Overview: Replace prn Temporal arteritis 11/17/2017 11/09/2018 Seizure disorder 07/03/2017 07/10/2017 Hematoma, postoperative 07/07/2014 08/11/19 15 Overview: 07/07/2014 Left arm duplex LEFT SIDE Negative for pseudoaneurysm, deep vein thrombosis and arteriovenous fistula. Brachial artery patent . Hematoma noted in region of incision at mid to distal medial upper arm measuring approximately 5.31 x 1.29 x 3.31cm. 07/08/2014 Hematoma stable, continue fátima wrap at discharge Ulcerative colitis 06/24/2014 11/09/2018 Overview: Patient has UC and is on Azulide, there is apparent resolution of symptoms with medication Last Assessment & Plan: Patient has UC and is on Azulide, there is apparent resolution of symptoms with that. Acute blood loss anemia 01/28/2014 10/13/19 20 Overview: Transfuse 2 units PRBC intra-op 10/10/19 Transfuse 2 units PRBC post-op Last Assessment & Plan: Assessment: +h/o anemia, last CBC 03/2019 normal H/H, new labs pending Thrombosis 11/12/2013 02/10/2014 Overview: 11/12/13 s/p lysis catheter placemenst for aortoiliac thrombosis. On heparin and tPA at present. Erythema of groin 10/30/2013 02/10/2014 Overview: Patient recently discharge on oral regimen of bactrim for 2 week course (till 11/20/13) for recurrent groin erythema Pain, postoperative, acute 10/30/201302/10 Overview: Patient on 300 mg og Neurotoin BID at home Patient started on [place] postoperatively, pain controlled at time of discharge. Ischemia of extremity 10/14/2013 02/10/2014 Overview: - admitted to [facility] vascular surgery twice in October 2013, s/p left femoral endarterectomy with patch, US guided access RCFA, L profundaplasty, RUFUS recanalization & stenting, CRISPIN stenting on 10/23/13 for aorto-occlusive critical limb ischemia - S/p 11/12-11/19/13 [facility] Vascular Surgery for aortoiliac thrombosis (BLE pain), underwent lysis of bilateral ileofemoral arteries. Started on anticoagulation with coumadin, also on aspirin 81 daily - chart review shows INR frequently sub-therapeutic on admissions Plan: - Warfarin therapeutic for 24 hours. Stop heparin. - Scheduled for OPD appointment with Dr. Sher on 02/10/2014. - PVR study of the lower limbs unchanged from previous. Vertebral compression fracture 07/05/2013 1 06/23/2019 Spondylosis of lumbar region without myelopathy or radiculopathy 12/18/2012 07/24/2020 Rectal bleeding 11/13/2013 documented as of this encounter (statuses as of 10/22/2021) [facility]04[facility]2020 History of Past illness Narrative* Problem Noted Date Resolved Date Hypophosphatemia 10/11/2019 10/13/2019 Overview: Replace prn Temporal arteritis 11/17/2017 11/09/2018 Seizure disorder 07/03/2017 07/10/2017 Hematoma, postoperative 07/07/2014 08/11/19 15 Overview: 07/07/2014 Left arm duplex LEFT SIDE Negative for pseudoaneurysm, deep vein thrombosis and arteriovenous fistula. Brachial artery patent . Hematoma noted in region of incision at mid to distal medial upper arm measuring approximately 5.31 x 1.29 x 3.31cm. 07/08/2014 Hematoma stable, continue fátima wrap at discharge Ulcerative colitis 06/24/2014 11/09/2018 Overview: Patient has UC and is on Azulide, there is apparent resolution of symptoms with medication Last Assessment & Plan: Patient has UC and is on Azulide, there is apparent resolution of symptoms with that. Acute blood loss anemia 01/28/2014 10/13/19 20 Overview: Transfuse 2 units PRBC intra-op 10/10/19 Transfuse 2 units PRBC post-op Last Assessment & Plan: Assessment: +h/o anemia, last CBC 03/2019 normal H/H, new labs pending Thrombosis 11/12/2013 02/10/2014 Overview: 11/12/13 s/p lysis catheter placemenst for aortoiliac thrombosis. On heparin and tPA at present. Erythema of groin 10/30/2013 02/10/2014 Overview: Patient recently discharge on oral regimen of bactrim for 2 week course (till 11/20/13) for recurrent groin erythema Pain, postoperative, acute 10/30/201302/10 Overview: Patient on 300 mg og Neurotoin BID at home Patient started on [place] postoperatively, pain controlled at time of discharge. Ischemia of extremity 10/14/2013 02/10/2014 Overview: - admitted to [facility] vascular surgery twice in October 2013, s/p left femoral endarterectomy with patch, US guided access RCFA, L profundaplasty, RUFUS recanalization & stenting, CRISPIN stenting on 10/23/13 for aorto-occlusive critical limb ischemia - S/p 11/12-11/19/13 [facility] Vascular Surgery for aortoiliac thrombosis (BLE pain), underwent lysis of bilateral ileofemoral arteries. Started on anticoagulation with coumadin, also on aspirin 81 daily - chart review shows INR frequently sub-therapeutic on admissions Plan: - Warfarin therapeutic for 24 hours. Stop heparin. - Scheduled for OPD appointment with Dr. Sher on 02/10/2014. - PVR study of the lower limbs unchanged from previous. Vertebral compression fracture 07/05/2013 1 06/23/2019 Spondylosis of lumbar region without myelopathy or radiculopathy 12/18/2012 07/24/2020 Rectal bleeding 11/13/2013 documented as of this encounter (statuses as of 10/22/2021) [facility]04-[facility]2020 History of Past illness Narrative* Problem Noted Date Resolved Date Hypophosphatemia 10/11/2019 10/13/2019 Overview: Replace prn Temporal arteritis 11/17/2017 11/09/2018 Seizure disorder 07/03/2017 07/10/2017 Hematoma, postoperative 07/07/2014 08/11/19 15 Overview: 07/07/2014 Left arm duplex LEFT SIDE Negative for pseudoaneurysm, deep vein thrombosis and arteriovenous fistula. Brachial artery patent . Hematoma noted in region of incision at mid to distal medial upper arm measuring approximately 5.31 x 1.29 x 3.31cm. 07/08/2014 Hematoma stable, continue fátima wrap at discharge Ulcerative colitis 06/24/2014 11/09/2018 Overview: Patient has UC and is on Azulide, there is apparent resolution of symptoms with medication Last Assessment & Plan: Patient has UC and is on Azulide, there is apparent resolution of symptoms with that. Acute blood loss anemia 01/28/2014 10/13/19 20 Overview: Transfuse 2 units PRBC intra-op 10/10/19 Transfuse 2 units PRBC post-op Last Assessment & Plan: Assessment: +h/o anemia, last CBC 03/2019 normal H/H, new labs pending Thrombosis 11/12/2013 02/10/2014 Overview: 11/12/13 s/p lysis catheter placemenst for aortoiliac thrombosis. On heparin and tPA at present. Erythema of groin 10/30/2013 02/10/2014 Overview: Patient recently discharge on oral regimen of bactrim for 2 week course (till 11/20/13) for recurrent groin erythema Pain, postoperative, acute 10/30/201302/10 Overview: Patient on 300 mg og Neurotoin BID at home Patient started on [place] postoperatively, pain controlled at time of discharge. Ischemia of extremity 10/14/2013 02/10/2014 Overview: - admitted to [facility] vascular surgery twice in October 2013, s/p left femoral endarterectomy with patch, US guided access RCFA, L profundaplasty, RUFUS recanalization & stenting, CRISPIN stenting on 10/23/13 for aorto-occlusive critical limb ischemia - S/p 11/12-11/19/13 [facility] Vascular Surgery for aortoiliac thrombosis (BLE pain), underwent lysis of bilateral ileofemoral arteries. Started on anticoagulation with coumadin, also on aspirin 81 daily - chart review shows INR frequently sub-therapeutic on admissions Plan: - Warfarin therapeutic for 24 hours. Stop heparin. - Scheduled for OPD appointment with Dr. Shre on 02/10/2014. - PVR study of the lower limbs unchanged from previous. Vertebral compression fracture 07/05/2013 1 06/23/2019 Spondylosis of lumbar region without myelopathy or radiculopathy 12/18/2012 07/24/2020 Rectal bleeding 11/13/2013 documented as of this encounter (statuses as of 10/27/2021) [facility]04[facility] History of Past illness Narrative* Problem Noted Date Resolved Date Hypophosphatemia 10/11/2019 10/13/2019 Overview: Replace prn Temporal arteritis 11/17/2017 11/09/2018 Seizure disorder 07/03/2017 07/10/2017 Hematoma, postoperative 07/07/2014 08/11/19 15 Overview: 07/07/2014 Left arm duplex LEFT SIDE Negative for pseudoaneurysm, deep vein thrombosis and arteriovenous fistula. Brachial artery patent . Hematoma noted in region of incision at mid to distal medial upper arm measuring approximately 5.31 x 1.29 x 3.31cm. 07/08/2014 Hematoma stable, continue fátima wrap at discharge Ulcerative colitis 06/24/2014 11/09/2018 Overview: Patient has UC and is on Azulide, there is apparent resolution of symptoms with medication Last Assessment & Plan: Patient has UC and is on Azulide, there is apparent resolution of symptoms with that. Acute blood loss anemia 01/28/2014 10/13/19 Overview: Transfuse 2 units PRBC intra-op 10/10/19 Transfuse 2 units PRBC post-op Last Assessment & Plan: Assessment: +h/o anemia, last CBC 03/2019 normal H/H, new labs pending Thrombosis 11/12/2013 02/10/2014 Overview: 11/12/13 s/p lysis catheter placemenst for aortoiliac thrombosis. On heparin and tPA at present. Erythema of groin 10/30/2013 02/10/2014 Overview: Patient recently discharge on oral regimen of bactrim for 2 week course (till 11/20/13) for recurrent groin erythema Pain, postoperative, acute 10/30/201302/10 Overview: Patient on 300 mg og Neurotoin BID at home Patient started on [place] postoperatively, pain controlled at time of discharge. Ischemia of extremity 10/14/2013 02/10/2014 Overview: - admitted to [facility] vascular surgery twice in October 2013, s/p left femoral endarterectomy with patch, US guided access RCFA, L profundaplasty, RUFUS recanalization & stenting, CRISPIN stenting on 10/23/13 for aorto-occlusive critical limb ischemia - S/p 11/12-11/19/13 [facility] Vascular Surgery for aortoiliac thrombosis (BLE pain), underwent lysis of bilateral ileofemoral arteries. Started on anticoagulation with coumadin, also on aspirin 81 daily - chart review shows INR frequently sub-therapeutic on admissions Plan: - Warfarin therapeutic for 24 hours. Stop heparin. - Scheduled for OPD appointment with Dr. Sher on 02/10/2014. - PVR study of the lower limbs unchanged from previous. Vertebral compression fracture 07/05/2013 1 06/23/2019 Spondylosis of lumbar region without myelopathy or radiculopathy 12/18/2012 07/24/2020 Rectal bleeding 11/13/2013 documented as of this encounter (statuses as of 11/08/2021) [facility] History of Past illness Narrative* Problem Noted Date Resolved Date Hypophosphatemia 10/11/2019 10/13/2019 Overview: Replace prn Temporal arteritis 11/17/2017 11/09/2018 Seizure disorder 07/03/2017 07/10/2017 Hematoma, postoperative 07/07/2014 08/11/19 15 Overview: 07/07/2014 Left arm duplex LEFT SIDE Negative for pseudoaneurysm, deep vein thrombosis and arteriovenous fistula. Brachial artery patent . Hematoma noted in region of incision at mid to distal medial upper arm measuring approximately 5.31 x 1.29 x 3.31cm. 07/08/2014 Hematoma stable, continue fátima wrap at discharge Ulcerative colitis 06/24/2014 11/09/2018 Overview: Patient has UC and is on Azulide, there is apparent resolution of symptoms with medication Last Assessment & Plan: Patient has UC and is on Azulide, there is apparent resolution of symptoms with that. Acute blood loss anemia 01/28/2014 10/13/19 20 Overview: Transfuse 2 units PRBC intra-op 10/10/19 Transfuse 2 units PRBC post-op Last Assessment & Plan: Assessment: +h/o anemia, last CBC 03/2019 normal H/H, new labs pending Thrombosis 11/12/2013 02/10/2014 Overview: 11/12/13 s/p lysis catheter placemenst for aortoiliac thrombosis. On heparin and tPA at present. Erythema of groin 10/30/2013 02/10/2014 Overview: Patient recently discharge on oral regimen of bactrim for 2 week course (till 11/20/13) for recurrent groin erythema Pain, postoperative, acute 10/30/201302/10 Overview: Patient on 300 mg og Neurotoin BID at home Patient started on Poteau postoperatively, pain controlled at time of discharge. Ischemia of extremity 10/14/2013 02/10/2014 Overview: - admitted to [facility] vascular surgery twice in October 2013, s/p left femoral endarterectomy with patch, US guided access RCFA, L profundaplasty, RUFUS recanalization & stenting, CRISPIN stenting on 10/23/13 for aorto-occlusive critical limb ischemia - S/p 11/12-11/19/13 [facility] Vascular Surgery for aortoiliac thrombosis (BLE pain), underwent lysis of bilateral ileofemoral arteries. Started on anticoagulation with coumadin, also on aspirin 81 daily - chart review shows INR frequently sub-therapeutic on admissions Plan: - Warfarin therapeutic for 24 hours. Stop heparin. - Scheduled for OPD appointment with Dr. Sher on 02/10/2014. - PVR study of the lower limbs unchanged from previous. Vertebral compression fracture 07/05/2013 1 06/23/2019 Spondylosis of lumbar region without myelopathy or radiculopathy 12/18/2012 07/24/2020 Rectal bleeding 11/13/2013 documented as of this encounter (statuses as of 11/08/2021) [facility]04-24-2020 History of Past illness Narrative* Problem Noted Date Resolved Date Hypophosphatemia 10/11/2019 10/13/2019 Overview: Replace prn Temporal arteritis 11/17/2017 11/09/2018 Seizure disorder 07/03/2017 07/10/2017 Hematoma, postoperative 07/07/2014 08/11/19 15 Overview: 07/07/2014 Left arm duplex LEFT SIDE Negative for pseudoaneurysm, deep vein thrombosis and arteriovenous fistula. Brachial artery patent . Hematoma noted in region of incision at mid to distal medial upper arm measuring approximately 5.31 x 1.29 x 3.31cm. 07/08/2014 Hematoma stable, continue fátima wrap at discharge Ulcerative colitis 06/24/2014 11/09/2018 Overview: Patient has UC and is on Azulide, there is apparent resolution of symptoms with medication Last Assessment & Plan: Patient has UC and is on Azulide, there is apparent resolution of symptoms with that. Acute blood loss anemia 01/28/2014 10/13/19 20 Overview: Transfuse 2 units PRBC intra-op 10/10/19 Transfuse 2 units PRBC post-op Last Assessment & Plan: Assessment: +h/o anemia, last CBC 03/2019 normal H/H, new labs pending Thrombosis 11/12/2013 02/10/2014 Overview: 11/12/13 s/p lysis catheter placemenst for aortoiliac thrombosis. On heparin and tPA at present. Erythema of groin 10/30/2013 02/10/2014 Overview: Patient recently discharge on oral regimen of bactrim for 2 week course (till 11/20/13) for recurrent groin erythema Pain, postoperative, acute 10/30/201302/10 Overview: Patient on 300 mg og Neurotoin BID at home Patient started on Poteau postoperatively, pain controlled at time of discharge. Ischemia of extremity 10/14/2013 02/10/2014 Overview: - admitted to [facility] vascular surgery twice in October 2013, s/p left femoral endarterectomy with patch, US guided access RCFA, L profundaplasty, RUFUS recanalization & stenting, CRISPIN stenting on 10/23/13 for aorto-occlusive critical limb ischemia - S/p 11/12-11/19/13 [facility] Vascular Surgery for aortoiliac thrombosis (BLE pain), underwent lysis of bilateral ileofemoral arteries. Started on anticoagulation with coumadin, also on aspirin 81 daily - chart review shows INR frequently sub-therapeutic on admissions Plan: - Warfarin therapeutic for 24 hours. Stop heparin. - Scheduled for OPD appointment with Dr. Sher on 02/10/2014. - PVR study of the lower limbs unchanged from previous. Vertebral compression fracture 07/05/2013 1 06/23/2019 Spondylosis of lumbar region without myelopathy or radiculopathy 12/18/2012 07/24/2020 Rectal bleeding 11/13/2013 documented as of this encounter (statuses as of 11/11/2021) [facility]04-24-2020 History of Past illness Narrative* Problem Noted Date Resolved Date Hypophosphatemia 10/11/2019 10/13/2019 Overview: Replace prn Temporal arteritis 11/17/2017 11/09/2018 Seizure disorder 07/03/2017 07/10/2017 Hematoma, postoperative 07/07/2014 08/11/19 15 Overview: 07/07/2014 Left arm duplex LEFT SIDE Negative for pseudoaneurysm, deep vein thrombosis and arteriovenous fistula. Brachial artery patent . Hematoma noted in region of incision at mid to distal medial upper arm measuring approximately 5.31 x 1.29 x 3.31cm. 07/08/2014 Hematoma stable, continue fátima wrap at discharge Ulcerative colitis 06/24/2014 11/09/2018 Overview: Patient has UC and is on Azulide, there is apparent resolution of symptoms with medication Last Assessment & Plan: Patient has UC and is on Azulide, there is apparent resolution of symptoms with that. Acute blood loss anemia 01/28/2014 10/13/19 20 Overview: Transfuse 2 units PRBC intra-op 10/10/19 Transfuse 2 units PRBC post-op Last Assessment & Plan: Assessment: +h/o anemia, last CBC 03/2019 normal H/H, new labs pending Thrombosis 11/12/2013 02/10/2014 Overview: 11/12/13 s/p lysis catheter placemenst for aortoiliac thrombosis. On heparin and tPA at present. Erythema of groin 10/30/2013 02/10/2014 Overview: Patient recently discharge on oral regimen of bactrim for 2 week course (till 11/20/13) for recurrent groin erythema Pain, postoperative, acute 10/30/201302/10 Overview: Patient on 300 mg og Neurotoin BID at home Patient started on Pote[place] postoperatively, pain controlled at time of discharge. Ischemia of extremity 10/14/2013 02/10/2014 Overview: - admitted to [facility] vascular surgery twice in October 2013, s/p left femoral endarterectomy with patch, US guided access RCFA, L profundaplasty, RUFUS recanalization & stenting, CRISPIN stenting on 10/23/13 for aorto-occlusive critical limb ischemia - S/p 11/12-11/19/13 [facility] Vascular Surgery for aortoiliac thrombosis (BLE pain), underwent lysis of bilateral ileofemoral arteries. Started on anticoagulation with coumadin, also on aspirin 81 daily - chart review shows INR frequently sub-therapeutic on admissions Plan: - Warfarin therapeutic for 24 hours. Stop heparin. - Scheduled for OPD appointment with Dr. Sher on 02/10/2014. - PVR study of the lower limbs unchanged from previous. Vertebral compression fracture 07/05/2013 1 06/23/2019 Spondylosis of lumbar region without myelopathy or radiculopathy 12/18/2012 07/24/2020 Rectal bleeding 11/13/2013 documented as of this encounter (statuses as of 11/12/2021) [facility]04-24-2020 History of Past illness Narrative* Problem Noted Date Resolved Date Hypophosphatemia 10/11/2019 10/13/2019 Overview: Replace prn Temporal arteritis 11/17/2017 11/09/2018 Seizure disorder 07/03/2017 07/10/2017 Hematoma, postoperative 07/07/2014 08/11/19 15 Overview: 07/07/2014 Left arm duplex LEFT SIDE Negative for pseudoaneurysm, deep vein thrombosis and arteriovenous fistula. Brachial artery patent . Hematoma noted in region of incision at mid to distal medial upper arm measuring approximately 5.31 x 1.29 x 3.31cm. 07/08/2014 Hematoma stable, continue fátima wrap at discharge Ulcerative colitis 06/24/2014 11/09/2018 Overview: Patient has UC and is on Azulide, there is apparent resolution of symptoms with medication Last Assessment & Plan: Patient has UC and is on Azulide, there is apparent resolution of symptoms with that. Acute blood loss anemia 01/28/2014 10/13/19 Overview: Transfuse 2 units PRBC intra-op 10/10/19 Transfuse 2 units PRBC post-op Last Assessment & Plan: Assessment: +h/o anemia, last CBC 03/2019 normal H/H, new labs pending Thrombosis 11/12/2013 02/10/2014 Overview: 11/12/13 s/p lysis catheter placemenst for aortoiliac thrombosis. On heparin and tPA at present. Erythema of groin 10/30/2013 02/10/2014 Overview: Patient recently discharge on oral regimen of bactrim for 2 week course (till 11/20/13) for recurrent groin erythema Pain, postoperative, acute 10/30/201302/10 Overview: Patient on 300 mg og Neurotoin BID at home Patient started on Pote[place] postoperatively, pain controlled at time of discharge. Ischemia of extremity 10/14/2013 02/10/2014 Overview: - admitted to [facility] vascular surgery twice in October 2013, s/p left femoral endarterectomy with patch, US guided access RCFA, L profundaplasty, RUFUS recanalization & stenting, CRISPIN stenting on 10/23/13 for aorto-occlusive critical limb ischemia - S/p 11/12-11/19/13 [facility] Vascular Surgery for aortoiliac thrombosis (BLE pain), underwent lysis of bilateral ileofemoral arteries. Started on anticoagulation with coumadin, also on aspirin 81 daily - chart review shows INR frequently sub-therapeutic on admissions Plan: - Warfarin therapeutic for 24 hours. Stop heparin. - Scheduled for OPD appointment with Dr. Sher on 02/10/2014. - PVR study of the lower limbs unchanged from previous. Vertebral compression fracture 07/05/2013 1 06/23/2019 Spondylosis of lumbar region without myelopathy or radiculopathy 12/18/2012 07/24/2020 Rectal bleeding 11/13/2013 documented as of this encounter (statuses as of 11/16/2021) [facility]04-24-2020 History of Past illness Narrative* Problem Noted Date Resolved Date Hypophosphatemia 10/11/2019 10/13/2019 Overview: Replace prn Temporal arteritis 11/17/2017 11/09/2018 Seizure disorder 07/03/2017 07/10/2017 Hematoma, postoperative 07/07/2014 08/11/19 15 Overview: 07/07/2014 Left arm duplex LEFT SIDE Negative for pseudoaneurysm, deep vein thrombosis and arteriovenous fistula. Brachial artery patent . Hematoma noted in region of incision at mid to distal medial upper arm measuring approximately 5.31 x 1.29 x 3.31cm. 07/08/2014 Hematoma stable, continue fátima wrap at discharge Ulcerative colitis 06/24/2014 11/09/2018 Overview: Patient has UC and is on Azulide, there is apparent resolution of symptoms with medication Last Assessment & Plan: Patient has UC and is on Azulide, there is apparent resolution of symptoms with that. Acute blood loss anemia 01/28/2014 10/13/19 Overview: Transfuse 2 units PRBC intra-op 10/10/19 Transfuse 2 units PRBC post-op Last Assessment & Plan: Assessment: +h/o anemia, last CBC 03/2019 normal H/H, new labs pending Thrombosis 11/12/2013 02/10/2014 Overview: 11/12/13 s/p lysis catheter placemenst for aortoiliac thrombosis. On heparin and tPA at present. Erythema of groin 10/30/2013 02/10/2014 Overview: Patient recently discharge on oral regimen of bactrim for 2 week course (till 11/20/13) for recurrent groin erythema Pain, postoperative, acute 10/30/201302/10 Overview: Patient on 300 mg og Neurotoin BID at home Patient started on Pote[place] postoperatively, pain controlled at time of discharge. Ischemia of extremity 10/14/2013 02/10/2014 Overview: - admitted to [facility] vascular surgery twice in October 2013, s/p left femoral endarterectomy with patch, US guided access RCFA, L profundaplasty, RUFUS recanalization & stenting, CRISPIN stenting on 10/23/13 for aorto-occlusive critical limb ischemia - S/p 11/12-11/19/13 [facility] Vascular Surgery for aortoiliac thrombosis (BLE pain), underwent lysis of bilateral ileofemoral arteries. Started on anticoagulation with coumadin, also on aspirin 81 daily - chart review shows INR frequently sub-therapeutic on admissions Plan: - Warfarin therapeutic for 24 hours. Stop heparin. - Scheduled for OPD appointment with Dr. Sher on 02/10/2014. - PVR study of the lower limbs unchanged from previous. Vertebral compression fracture 07/05/2013 1 06/23/2019 Spondylosis of lumbar region without myelopathy or radiculopathy 12/18/2012 07/24/2020 Rectal bleeding 11/13/2013 documented as of this encounter (statuses as of 11/17/2021) [facility]04-24-2020 History of Past illness Narrative* Problem Noted Date Resolved Date Hypophosphatemia 10/11/2019 10/13/2019 Overview: Replace prn Temporal arteritis 11/17/2017 11/09/2018 Seizure disorder 07/03/2017 07/10/2017 Hematoma, postoperative 07/07/2014 08/11/19 15 Overview: 07/07/2014 Left arm duplex LEFT SIDE Negative for pseudoaneurysm, deep vein thrombosis and arteriovenous fistula. Brachial artery patent . Hematoma noted in region of incision at mid to distal medial upper arm measuring approximately 5.31 x 1.29 x 3.31cm. 07/08/2014 Hematoma stable, continue fátima wrap at discharge Ulcerative colitis 06/24/2014 11/09/2018 Overview: Patient has UC and is on Azulide, there is apparent resolution of symptoms with medication Last Assessment & Plan: Patient has UC and is on Azulide, there is apparent resolution of symptoms with that. Acute blood loss anemia 01/28/2014 10/13/19 20 Overview: Transfuse 2 units PRBC intra-op 10/10/19 Transfuse 2 units PRBC post-op Last Assessment & Plan: Assessment: +h/o anemia, last CBC 03/2019 normal H/H, new labs pending Thrombosis 11/12/2013 02/10/2014 Overview: 11/12/13 s/p lysis catheter placemenst for aortoiliac thrombosis. On heparin and tPA at present. Erythema of groin 10/30/2013 02/10/2014 Overview: Patient recently discharge on oral regimen of bactrim for 2 week course (till 11/20/13) for recurrent groin erythema Pain, postoperative, acute 10/30/201302/10 Overview: Patient on 300 mg og Neurotoin BID at home Patient started on Pote[place] postoperatively, pain controlled at time of discharge. Ischemia of extremity 10/14/2013 02/10/2014 Overview: - admitted to [facility] vascular surgery twice in October 2013, s/p left femoral endarterectomy with patch, US guided access RCFA, L profundaplasty, RUFUS recanalization & stenting, CRISPIN stenting on 10/23/13 for aorto-occlusive critical limb ischemia - S/p 11/12-11/19/13 [facility] Vascular Surgery for aortoiliac thrombosis (BLE pain), underwent lysis of bilateral ileofemoral arteries. Started on anticoagulation with coumadin, also on aspirin 81 daily - chart review shows INR frequently sub-therapeutic on admissions Plan: - Warfarin therapeutic for 24 hours. Stop heparin. - Scheduled for OPD appointment with Dr. Sher on 02/10/2014. - PVR study of the lower limbs unchanged from previous. Vertebral compression fracture 07/05/2013 1 06/23/2019 Spondylosis of lumbar region without myelopathy or radiculopathy 12/18/2012 07/24/2020 Rectal bleeding 11/13/2013 documented as of this encounter (statuses as of 11/17/2021) [facility]04-24-2020 History of Past illness Narrative* Problem Noted Date Resolved Date Hypophosphatemia 10/11/2019 10/13/2019 Overview: Replace prn Temporal arteritis 11/17/2017 11/09/2018 Seizure disorder 07/03/2017 07/10/2017 Hematoma, postoperative 07/07/2014 08/11/19 15 Overview: 07/07/2014 Left arm duplex LEFT SIDE Negative for pseudoaneurysm, deep vein thrombosis and arteriovenous fistula. Brachial artery patent . Hematoma noted in region of incision at mid to distal medial upper arm measuring approximately 5.31 x 1.29 x 3.31cm. 07/08/2014 Hematoma stable, continue fátima wrap at discharge Ulcerative colitis 06/24/2014 11/09/2018 Overview: Patient has UC and is on Azulide, there is apparent resolution of symptoms with medication Last Assessment & Plan: Patient has UC and is on Azulide, there is apparent resolution of symptoms with that. Acute blood loss anemia 01/28/2014 10/13/19 Overview: Transfuse 2 units PRBC intra-op 10/10/19 Transfuse 2 units PRBC post-op Last Assessment & Plan: Assessment: +h/o anemia, last CBC 03/2019 normal H/H, new labs pending Thrombosis 11/12/2013 02/10/2014 Overview: 11/12/13 s/p lysis catheter placemenst for aortoiliac thrombosis. On heparin and tPA at present. Erythema of groin 10/30/2013 02/10/2014 Overview: Patient recently discharge on oral regimen of bactrim for 2 week course (till 11/20/13) for recurrent groin erythema Pain, postoperative, acute 10/30/201302/10 Overview: Patient on 300 mg og Neurotoin BID at home Patient started on Pote[place] postoperatively, pain controlled at time of discharge. Ischemia of extremity 10/14/2013 02/10/2014 Overview: - admitted to [facility] vascular surgery twice in October 2013, s/p left femoral endarterectomy with patch, US guided access RCFA, L profundaplasty, RUFUS recanalization & stenting, CRISPIN stenting on 10/23/13 for aorto-occlusive critical limb ischemia - S/p 11/12-11/19/13 [facility] Vascular Surgery for aortoiliac thrombosis (BLE pain), underwent lysis of bilateral ileofemoral arteries. Started on anticoagulation with coumadin, also on aspirin 81 daily - chart review shows INR frequently sub-therapeutic on admissions Plan: - Warfarin therapeutic for 24 hours. Stop heparin. - Scheduled for OPD appointment with Dr. Sher on 02/10/2014. - PVR study of the lower limbs unchanged from previous. Vertebral compression fracture 07/05/2013 1 06/23/2019 Spondylosis of lumbar region without myelopathy or radiculopathy 12/18/2012 07/24/2020 Rectal bleeding 11/13/2013 documented as of this encounter (statuses as of 11/18/2021) [facility]04-24-2020 History of Past illness Narrative* Problem Noted Date Resolved Date Hypophosphatemia 10/11/2019 10/13/2019 Overview: Replace prn Temporal arteritis 11/17/2017 11/09/2018 Seizure disorder 07/03/2017 07/10/2017 Hematoma, postoperative 07/07/2014 08/11/19 Overview: 07/07/2014 Left arm duplex LEFT SIDE Negative for pseudoaneurysm, deep vein thrombosis and arteriovenous fistula. Brachial artery patent . Hematoma noted in region of incision at mid to distal medial upper arm measuring approximately 5.31 x 1.29 x 3.31cm. 07/08/2014 Hematoma stable, continue fátima wrap at discharge Ulcerative colitis 06/24/2014 11/09/2018 Overview: Patient has UC and is on Azulide, there is apparent resolution of symptoms with medication Last Assessment & Plan: Patient has UC and is on Azulide, there is apparent resolution of symptoms with that. Acute blood loss anemia 01/28/2014 10/13/19 Overview: Transfuse 2 units PRBC intra-op 10/10/19 Transfuse 2 units PRBC post-op Last Assessment & Plan: Assessment: +h/o anemia, last CBC 03/2019 normal H/H, new labs pending Thrombosis 11/12/2013 02/10/2014 Overview: 11/12/13 s/p lysis catheter placemenst for aortoiliac thrombosis. On heparin and tPA at present. Erythema of groin 10/30/2013 02/10/2014 Overview: Patient recently discharge on oral regimen of bactrim for 2 week course (till 11/20/13) for recurrent groin erythema Pain, postoperative, acute 10/30/201302/10 Overview: Patient on 300 mg og Neurotoin BID at home Patient started on Pote[place] postoperatively, pain controlled at time of discharge. Ischemia of extremity 10/14/2013 02/10/2014 Overview: - admitted to [facility] vascular surgery twice in October 2013, s/p left femoral endarterectomy with patch, US guided access RCFA, L profundaplasty, RUFUS recanalization & stenting, CRISPIN stenting on 10/23/13 for aorto-occlusive critical limb ischemia - S/p 11/12-11/19/13 [facility] Vascular Surgery for aortoiliac thrombosis (BLE pain), underwent lysis of bilateral ileofemoral arteries. Started on anticoagulation with coumadin, also on aspirin 81 daily - chart review shows INR frequently sub-therapeutic on admissions Plan: - Warfarin therapeutic for 24 hours. Stop heparin. - Scheduled for OPD appointment with Dr. Sher on 02/10/2014. - PVR study of the lower limbs unchanged from previous. Vertebral compression fracture 07/05/2013 1 06/23/2019 Spondylosis of lumbar region without myelopathy or radiculopathy 12/18/2012 07/24/2020 Rectal bleeding 11/13/2013 documented as of this encounter (statuses as of 11/19/2021) [facility]04-[facility]2020 History of Past illness Narrative* Problem Noted Date Resolved Date Hypophosphatemia 10/11/2019 10/13/2019 Overview: Replace prn Temporal arteritis 11/17/2017 11/09/2018 Seizure disorder 07/03/2017 07/10/2017 Hematoma, postoperative 07/07/2014 08/11/19 15 Overview: 07/07/2014 Left arm duplex LEFT SIDE Negative for pseudoaneurysm, deep vein thrombosis and arteriovenous fistula. Brachial artery patent . Hematoma noted in region of incision at mid to distal medial upper arm measuring approximately 5.31 x 1.29 x 3.31cm. 07/08/2014 Hematoma stable, continue fátima wrap at discharge Ulcerative colitis 06/24/2014 11/09/2018 Overview: Patient has UC and is on Azulide, there is apparent resolution of symptoms with medication Last Assessment & Plan: Patient has UC and is on Azulide, there is apparent resolution of symptoms with that. Acute blood loss anemia 01/28/2014 10/13/19 Overview: Transfuse 2 units PRBC intra-op 10/10/19 Transfuse 2 units PRBC post-op Last Assessment & Plan: Assessment: +h/o anemia, last CBC 03/2019 normal H/H, new labs pending Thrombosis 11/12/2013 02/10/2014 Overview: 11/12/13 s/p lysis catheter placemenst for aortoiliac thrombosis. On heparin and tPA at present. Erythema of groin 10/30/2013 02/10/2014 Overview: Patient recently discharge on oral regimen of bactrim for 2 week course (till 11/20/13) for recurrent groin erythema Pain, postoperative, acute 10/30/201302/10 Overview: Patient on 300 mg og Neurotoin BID at home Patient started on Pote[place] postoperatively, pain controlled at time of discharge. Ischemia of extremity 10/14/2013 02/10/2014 Overview: - admitted to [facility] vascular surgery twice in October 2013, s/p left femoral endarterectomy with patch, US guided access RCFA, L profundaplasty, RUFUS recanalization & stenting, CRISPIN stenting on 10/23/13 for aorto-occlusive critical limb ischemia - S/p 11/12-11/19/13 [facility] Vascular Surgery for aortoiliac thrombosis (BLE pain), underwent lysis of bilateral ileofemoral arteries. Started on anticoagulation with coumadin, also on aspirin 81 daily - chart review shows INR frequently sub-therapeutic on admissions Plan: - Warfarin therapeutic for 24 hours. Stop heparin. - Scheduled for OPD appointment with Dr. Sher on 02/10/2014. - PVR study of the lower limbs unchanged from previous. Vertebral compression fracture 07/05/2013 1 06/23/2019 Spondylosis of lumbar region without myelopathy or radiculopathy 12/18/2012 07/24/2020 Rectal bleeding 11/13/2013 documented as of this encounter (statuses as of 11/19/2021) [facility]04[facility]2020 History of Past illness Narrative* Problem Noted Date Resolved Date Hypophosphatemia 10/11/2019 10/13/2019 Overview: Replace prn Temporal arteritis 11/17/2017 11/09/2018 Seizure disorder 07/03/2017 07/10/2017 Hematoma, postoperative 07/07/2014 08/11/19 Overview: 07/07/2014 Left arm duplex LEFT SIDE Negative for pseudoaneurysm, deep vein thrombosis and arteriovenous fistula. Brachial artery patent . Hematoma noted in region of incision at mid to distal medial upper arm measuring approximately 5.31 x 1.29 x 3.31cm. 07/08/2014 Hematoma stable, continue fátima wrap at discharge Ulcerative colitis 06/24/2014 11/09/2018 Overview: Patient has UC and is on Azulide, there is apparent resolution of symptoms with medication Last Assessment & Plan: Patient has UC and is on Azulide, there is apparent resolution of symptoms with that. Acute blood loss anemia 01/28/2014 10/13/19 Overview: Transfuse 2 units PRBC intra-op 10/10/19 Transfuse 2 units PRBC post-op Last Assessment & Plan: Assessment: +h/o anemia, last CBC 03/2019 normal H/H, new labs pending Thrombosis 11/12/2013 02/10/2014 Overview: 11/12/13 s/p lysis catheter placemenst for aortoiliac thrombosis. On heparin and tPA at present. Erythema of groin 10/30/2013 02/10/2014 Overview: Patient recently discharge on oral regimen of bactrim for 2 week course (till 11/20/13) for recurrent groin erythema Pain, postoperative, acute 10/30/201302/10 Overview: Patient on 300 mg og Neurotoin BID at home Patient started on Pote[place] postoperatively, pain controlled at time of discharge. Ischemia of extremity 10/14/2013 02/10/2014 Overview: - admitted to [facility] vascular surgery twice in October 2013, s/p left femoral endarterectomy with patch, US guided access RCFA, L profundaplasty, RUFUS recanalization & stenting, CRISPIN stenting on 10/23/13 for aorto-occlusive critical limb ischemia - S/p 11/12-11/19/13 [facility] Vascular Surgery for aortoiliac thrombosis (BLE pain), underwent lysis of bilateral ileofemoral arteries. Started on anticoagulation with coumadin, also on aspirin 81 daily - chart review shows INR frequently sub-therapeutic on admissions Plan: - Warfarin therapeutic for 24 hours. Stop heparin. - Scheduled for OPD appointment with Dr. Sher on 02/10/2014. - PVR study of the lower limbs unchanged from previous. Vertebral compression fracture 07/05/2013 1 06/23/2019 Spondylosis of lumbar region without myelopathy or radiculopathy 12/18/2012 07/24/2020 Rectal bleeding 11/13/2013 documented as of this encounter (statuses as of 11/26/2021) [facility]04-24-2020 History of Past illness Narrative* Problem Noted Date Resolved Date Hypophosphatemia 10/11/2019 10/13/2019 Overview: Replace prn Temporal arteritis 11/17/2017 11/09/2018 Seizure disorder 07/03/2017 07/10/2017 Hematoma, postoperative 07/07/2014 08/11/19 15 Overview: 07/07/2014 Left arm duplex LEFT SIDE Negative for pseudoaneurysm, deep vein thrombosis and arteriovenous fistula. Brachial artery patent . Hematoma noted in region of incision at mid to distal medial upper arm measuring approximately 5.31 x 1.29 x 3.31cm. 07/08/2014 Hematoma stable, continue fátima wrap at discharge Ulcerative colitis 06/24/2014 11/09/2018 Overview: Patient has UC and is on Azulide, there is apparent resolution of symptoms with medication Last Assessment & Plan: Patient has UC and is on Azulide, there is apparent resolution of symptoms with that. Acute blood loss anemia 01/28/2014 10/13/19 Overview: Transfuse 2 units PRBC intra-op 10/10/19 Transfuse 2 units PRBC post-op Last Assessment & Plan: Assessment: +h/o anemia, last CBC 03/2019 normal H/H, new labs pending Thrombosis 11/12/2013 02/10/2014 Overview: 11/12/13 s/p lysis catheter placemenst for aortoiliac thrombosis. On heparin and tPA at present. Erythema of groin 10/30/2013 02/10/2014 Overview: Patient recently discharge on oral regimen of bactrim for 2 week course (till 11/20/13) for recurrent groin erythema Pain, postoperative, acute 10/30/201302/10 Overview: Patient on 300 mg og Neurotoin BID at home Patient started on [place] postoperatively, pain controlled at time of discharge. Ischemia of extremity 10/14/2013 02/10/2014 Overview: - admitted to [facility] vascular surgery twice in October 2013, s/p left femoral endarterectomy with patch, US guided access RCFA, L profundaplasty, RUFUS recanalization & stenting, CRISPIN stenting on 10/23/13 for aorto-occlusive critical limb ischemia - S/p 11/12-11/19/13 [facility] Vascular Surgery for aortoiliac thrombosis (BLE pain), underwent lysis of bilateral ileofemoral arteries. Started on anticoagulation with coumadin, also on aspirin 81 daily - chart review shows INR frequently sub-therapeutic on admissions Plan: - Warfarin therapeutic for 24 hours. Stop heparin. - Scheduled for OPD appointment with Dr. Sher on 02/10/2014. - PVR study of the lower limbs unchanged from previous. Vertebral compression fracture 07/05/2013 1 06/23/2019 Spondylosis of lumbar region without myelopathy or radiculopathy 12/18/2012 07/24/2020 Rectal bleeding 11/13/2013 documented as of this encounter (statuses as of 11/30/2021) [facility]04-24-2020 History of Past illness Narrative* Problem Noted Date Resolved Date Hypophosphatemia 10/11/2019 10/13/2019 Overview: Replace prn Temporal arteritis 11/17/2017 11/09/2018 Seizure disorder 07/03/2017 07/10/2017 Hematoma, postoperative 07/07/2014 08/11/19 15 Overview: 07/07/2014 Left arm duplex LEFT SIDE Negative for pseudoaneurysm, deep vein thrombosis and arteriovenous fistula. Brachial artery patent . Hematoma noted in region of incision at mid to distal medial upper arm measuring approximately 5.31 x 1.29 x 3.31cm. 07/08/2014 Hematoma stable, continue fátima wrap at discharge Ulcerative colitis 06/24/2014 11/09/2018 Overview: Patient has UC and is on Azulide, there is apparent resolution of symptoms with medication Last Assessment & Plan: Patient has UC and is on Azulide, there is apparent resolution of symptoms with that. Acute blood loss anemia 01/28/2014 10/13/19 20 Overview: Transfuse 2 units PRBC intra-op 10/10/19 Transfuse 2 units PRBC post-op Last Assessment & Plan: Assessment: +h/o anemia, last CBC 03/2019 normal H/H, new labs pending Thrombosis 11/12/2013 02/10/2014 Overview: 11/12/13 s/p lysis catheter placemenst for aortoiliac thrombosis. On heparin and tPA at present. Erythema of groin 10/30/2013 02/10/2014 Overview: Patient recently discharge on oral regimen of bactrim for 2 week course (till 11/20/13) for recurrent groin erythema Pain, postoperative, acute 10/30/201302/10 Overview: Patient on 300 mg og Neurotoin BID at home Patient started on [place] postoperatively, pain controlled at time of discharge. Ischemia of extremity 10/14/2013 02/10/2014 Overview: - admitted to [facility] vascular surgery twice in October 2013, s/p left femoral endarterectomy with patch, US guided access RCFA, L profundaplasty, RUFUS recanalization & stenting, CRISPIN stenting on 10/23/13 for aorto-occlusive critical limb ischemia - S/p 11/12-11/19/13 [facility] Vascular Surgery for aortoiliac thrombosis (BLE pain), underwent lysis of bilateral ileofemoral arteries. Started on anticoagulation with coumadin, also on aspirin 81 daily - chart review shows INR frequently sub-therapeutic on admissions Plan: - Warfarin therapeutic for 24 hours. Stop heparin. - Scheduled for OPD appointment with Dr. Sher on 02/10/2014. - PVR study of the lower limbs unchanged from previous. Vertebral compression fracture 07/05/2013 1 06/23/2019 Spondylosis of lumbar region without myelopathy or radiculopathy 12/18/2012 07/24/2020 Rectal bleeding 11/13/2013 documented as of this encounter (statuses as of 12/03/2021) [facility]04-24-2020 History of Past illness Narrative* Problem Noted Date Resolved Date Hypophosphatemia 10/11/2019 10/13/2019 Overview: Replace prn Temporal arteritis 11/17/2017 11/09/2018 Seizure disorder 07/03/2017 07/10/2017 Hematoma, postoperative 07/07/2014 08/11/19 15 Overview: 07/07/2014 Left arm duplex LEFT SIDE Negative for pseudoaneurysm, deep vein thrombosis and arteriovenous fistula. Brachial artery patent . Hematoma noted in region of incision at mid to distal medial upper arm measuring approximately 5.31 x 1.29 x 3.31cm. 07/08/2014 Hematoma stable, continue fátima wrap at discharge Ulcerative colitis 06/24/2014 11/09/2018 Overview: Patient has UC and is on Azulide, there is apparent resolution of symptoms with medication Last Assessment & Plan: Patient has UC and is on Azulide, there is apparent resolution of symptoms with that. Acute blood loss anemia 01/28/2014 10/13/19 20 Overview: Transfuse 2 units PRBC intra-op 10/10/19 Transfuse 2 units PRBC post-op Last Assessment & Plan: Assessment: +h/o anemia, last CBC 03/2019 normal H/H, new labs pending Thrombosis 11/12/2013 02/10/2014 Overview: 11/12/13 s/p lysis catheter placemenst for aortoiliac thrombosis. On heparin and tPA at present. Erythema of groin 10/30/2013 02/10/2014 Overview: Patient recently discharge on oral regimen of bactrim for 2 week course (till 11/20/13) for recurrent groin erythema Pain, postoperative, acute 10/30/201302/10 Overview: Patient on 300 mg og Neurotoin BID at home Patient started on [place] postoperatively, pain controlled at time of discharge. Ischemia of extremity 10/14/2013 02/10/2014 Overview: - admitted to [facility] vascular surgery twice in October 2013, s/p left femoral endarterectomy with patch, US guided access RCFA, L profundaplasty, RUFUS recanalization & stenting, CRISPIN stenting on 10/23/13 for aorto-occlusive critical limb ischemia - S/p 11/12-11/19/13 [facility] Vascular Surgery for aortoiliac thrombosis (BLE pain), underwent lysis of bilateral ileofemoral arteries. Started on anticoagulation with coumadin, also on aspirin 81 daily - chart review shows INR frequently sub-therapeutic on admissions Plan: - Warfarin therapeutic for 24 hours. Stop heparin. - Scheduled for OPD appointment with Dr. Sher on 02/10/2014. - PVR study of the lower limbs unchanged from previous. Vertebral compression fracture 07/05/2013 1 06/23/2019 Spondylosis of lumbar region without myelopathy or radiculopathy 12/18/2012 07/24/2020 Rectal bleeding 11/13/2013 documented as of this encounter (statuses as of 12/07/2021) [facility]04-24-2020 History of Past illness Narrative* Problem Noted Date Resolved Date Hypophosphatemia 10/11/2019 10/13/2019 Overview: Replace prn Temporal arteritis 11/17/2017 11/09/2018 Seizure disorder 07/03/2017 07/10/2017 Hematoma, postoperative 07/07/2014 08/11/19 15 Overview: 07/07/2014 Left arm duplex LEFT SIDE Negative for pseudoaneurysm, deep vein thrombosis and arteriovenous fistula. Brachial artery patent . Hematoma noted in region of incision at mid to distal medial upper arm measuring approximately 5.31 x 1.29 x 3.31cm. 07/08/2014 Hematoma stable, continue fátima wrap at discharge Ulcerative colitis 06/24/2014 11/09/2018 Overview: Patient has UC and is on Azulide, there is apparent resolution of symptoms with medication Last Assessment & Plan: Patient has UC and is on Azulide, there is apparent resolution of symptoms with that. Acute blood loss anemia 01/28/2014 10/13/19 20 Overview: Transfuse 2 units PRBC intra-op 10/10/19 Transfuse 2 units PRBC post-op Last Assessment & Plan: Assessment: +h/o anemia, last CBC 03/2019 normal H/H, new labs pending Thrombosis 11/12/2013 02/10/2014 Overview: 11/12/13 s/p lysis catheter placemenst for aortoiliac thrombosis. On heparin and tPA at present. Erythema of groin 10/30/2013 02/10/2014 Overview: Patient recently discharge on oral regimen of bactrim for 2 week course (till 11/20/13) for recurrent groin erythema Pain, postoperative, acute 10/30/201302/10 Overview: Patient on 300 mg og Neurotoin BID at home Patient started on [place] postoperatively, pain controlled at time of discharge. Ischemia of extremity 10/14/2013 02/10/2014 Overview: - admitted to [facility] vascular surgery twice in October 2013, s/p left femoral endarterectomy with patch, US guided access RCFA, L profundaplasty, RUFUS recanalization & stenting, CRISPIN stenting on 10/23/13 for aorto-occlusive critical limb ischemia - S/p 11/12-11/19/13 [facility] Vascular Surgery for aortoiliac thrombosis (BLE pain), underwent lysis of bilateral ileofemoral arteries. Started on anticoagulation with coumadin, also on aspirin 81 daily - chart review shows INR frequently sub-therapeutic on admissions Plan: - Warfarin therapeutic for 24 hours. Stop heparin. - Scheduled for OPD appointment with Dr. Sher on 02/10/2014. - PVR study of the lower limbs unchanged from previous. Vertebral compression fracture 07/05/2013 1 06/23/2019 Spondylosis of lumbar region without myelopathy or radiculopathy 12/18/2012 07/24/2020 Rectal bleeding 11/13/2013 documented as of this encounter (statuses as of 01/14/2022) [facility]04-24-2020 History of Past illness Narrative* Problem Noted Date Resolved Date Hypophosphatemia 10/11/2019 10/13/2019 Overview: Replace prn Temporal arteritis 11/17/2017 11/09/2018 Seizure disorder 07/03/2017 07/10/2017 Hematoma, postoperative 07/07/2014 08/11/19 Overview: 07/07/2014 Left arm duplex LEFT SIDE Negative for pseudoaneurysm, deep vein thrombosis and arteriovenous fistula. Brachial artery patent . Hematoma noted in region of incision at mid to distal medial upper arm measuring approximately 5.31 x 1.29 x 3.31cm. 07/08/2014 Hematoma stable, continue fátima wrap at discharge Ulcerative colitis 06/24/2014 11/09/2018 Overview: Patient has UC and is on Azulide, there is apparent resolution of symptoms with medication Last Assessment & Plan: Patient has UC and is on Azulide, there is apparent resolution of symptoms with that. Acute blood loss anemia 01/28/2014 10/13/19 20 Overview: Transfuse 2 units PRBC intra-op 10/10/19 Transfuse 2 units PRBC post-op Last Assessment & Plan: Assessment: +h/o anemia, last CBC 03/2019 normal H/H, new labs pending Thrombosis 11/12/2013 02/10/2014 Overview: 11/12/13 s/p lysis catheter placemenst for aortoiliac thrombosis. On heparin and tPA at present. Erythema of groin 10/30/2013 02/10/2014 Overview: Patient recently discharge on oral regimen of bactrim for 2 week course (till 11/20/13) for recurrent groin erythema Pain, postoperative, acute 10/30/201302/10 Overview: Patient on 300 mg og Neurotoin BID at home Patient started on [place] postoperatively, pain controlled at time of discharge. Ischemia of extremity 10/14/2013 02/10/2014 Overview: - admitted to [facility] vascular surgery twice in October 2013, s/p left femoral endarterectomy with patch, US guided access RCFA, L profundaplasty, RUFUS recanalization & stenting, CRISPIN stenting on 10/23/13 for aorto-occlusive critical limb ischemia - S/p 11/12-11/19/13 [facility] Vascular Surgery for aortoiliac thrombosis (BLE pain), underwent lysis of bilateral ileofemoral arteries. Started on anticoagulation with coumadin, also on aspirin 81 daily - chart review shows INR frequently sub-therapeutic on admissions Plan: - Warfarin therapeutic for 24 hours. Stop heparin. - Scheduled for OPD appointment with Dr. Sher on 02/10/2014. - PVR study of the lower limbs unchanged from previous. Vertebral compression fracture 07/05/2013 1 06/23/2019 Spondylosis of lumbar region without myelopathy or radiculopathy 12/18/2012 07/24/2020 Rectal bleeding 11/13/2013 documented as of this encounter (statuses as of 01/14/2022) [facility]04-24-2020 History of Past illness Narrative* Problem Noted Date Resolved Date Hypophosphatemia 10/11/2019 10/13/2019 Overview: Replace prn Temporal arteritis 11/17/2017 11/09/2018 Seizure disorder 07/03/2017 07/10/2017 Hematoma, postoperative 07/07/2014 08/11/19 Overview: 07/07/2014 Left arm duplex LEFT SIDE Negative for pseudoaneurysm, deep vein thrombosis and arteriovenous fistula. Brachial artery patent . Hematoma noted in region of incision at mid to distal medial upper arm measuring approximately 5.31 x 1.29 x 3.31cm. 07/08/2014 Hematoma stable, continue fátima wrap at discharge Ulcerative colitis 06/24/2014 11/09/2018 Overview: Patient has UC and is on Azulide, there is apparent resolution of symptoms with medication Last Assessment & Plan: Patient has UC and is on Azulide, there is apparent resolution of symptoms with that. Acute blood loss anemia 01/28/2014 10/13/19 20 Overview: Transfuse 2 units PRBC intra-op 10/10/19 Transfuse 2 units PRBC post-op Last Assessment & Plan: Assessment: +h/o anemia, last CBC 03/2019 normal H/H, new labs pending Thrombosis 11/12/2013 02/10/2014 Overview: 11/12/13 s/p lysis catheter placemenst for aortoiliac thrombosis. On heparin and tPA at present. Erythema of groin 10/30/2013 02/10/2014 Overview: Patient recently discharge on oral regimen of bactrim for 2 week course (till 11/20/13) for recurrent groin erythema Pain, postoperative, acute 10/30/201302/10 Overview: Patient on 300 mg og Neurotoin BID at home Patient started on [place] postoperatively, pain controlled at time of discharge. Ischemia of extremity 10/14/2013 02/10/2014 Overview: - admitted to [facility] vascular surgery twice in October 2013, s/p left femoral endarterectomy with patch, US guided access RCFA, L profundaplasty, RUFUS recanalization & stenting, CRISPIN stenting on 10/23/13 for aorto-occlusive critical limb ischemia - S/p 11/12-11/19/13 [facility] Vascular Surgery for aortoiliac thrombosis (BLE pain), underwent lysis of bilateral ileofemoral arteries. Started on anticoagulation with coumadin, also on aspirin 81 daily - chart review shows INR frequently sub-therapeutic on admissions Plan: - Warfarin therapeutic for 24 hours. Stop heparin. - Scheduled for OPD appointment with Dr. Sher on 02/10/2014. - PVR study of the lower limbs unchanged from previous. Vertebral compression fracture 07/05/2013 1 06/23/2019 Spondylosis of lumbar region without myelopathy or radiculopathy 12/18/2012 07/24/2020 Rectal bleeding 11/13/2013 documented as of this encounter (statuses as of 01/25/2022) [facility]04-24-2020 History of Past illness Narrative* Problem Noted Date Resolved Date Hypophosphatemia 10/11/2019 10/13/2019 Overview: Replace prn Temporal arteritis 11/17/2017 11/09/2018 Seizure disorder 07/03/2017 07/10/2017 Hematoma, postoperative 07/07/2014 08/11/19 15 Overview: 07/07/2014 Left arm duplex LEFT SIDE Negative for pseudoaneurysm, deep vein thrombosis and arteriovenous fistula. Brachial artery patent . Hematoma noted in region of incision at mid to distal medial upper arm measuring approximately 5.31 x 1.29 x 3.31cm. 07/08/2014 Hematoma stable, continue fátima wrap at discharge Ulcerative colitis 06/24/2014 11/09/2018 Overview: Patient has UC and is on Azulide, there is apparent resolution of symptoms with medication Last Assessment & Plan: Patient has UC and is on Azulide, there is apparent resolution of symptoms with that. Acute blood loss anemia 01/28/2014 10/13/19 Overview: Transfuse 2 units PRBC intra-op 10/10/19 Transfuse 2 units PRBC post-op Last Assessment & Plan: Assessment: +h/o anemia, last CBC 03/2019 normal H/H, new labs pending Thrombosis 11/12/2013 02/10/2014 Overview: 11/12/13 s/p lysis catheter placemenst for aortoiliac thrombosis. On heparin and tPA at present. Erythema of groin 10/30/2013 02/10/2014 Overview: Patient recently discharge on oral regimen of bactrim for 2 week course (till 11/20/13) for recurrent groin erythema Pain, postoperative, acute 10/30/201302/10 Overview: Patient on 300 mg og Neurotoin BID at home Patient started on [place] postoperatively, pain controlled at time of discharge. Ischemia of extremity 10/14/2013 02/10/2014 Overview: - admitted to [facility] vascular surgery twice in October 2013, s/p left femoral endarterectomy with patch, US guided access RCFA, L profundaplasty, RUFUS recanalization & stenting, CRISPIN stenting on 10/23/13 for aorto-occlusive critical limb ischemia - S/p 11/12-11/19/13 [facility] Vascular Surgery for aortoiliac thrombosis (BLE pain), underwent lysis of bilateral ileofemoral arteries. Started on anticoagulation with coumadin, also on aspirin 81 daily - chart review shows INR frequently sub-therapeutic on admissions Plan: - Warfarin therapeutic for 24 hours. Stop heparin. - Scheduled for OPD appointment with Dr. Sher on 02/10/2014. - PVR study of the lower limbs unchanged from previous. Vertebral compression fracture 07/05/2013 1 06/23/2019 Spondylosis of lumbar region without myelopathy or radiculopathy 12/18/2012 07/24/2020 Rectal bleeding 11/13/2013 documented as of this encounter (statuses as of 01/28/2022) [facility]04-[facility]2020 History of Past illness Narrative* Problem Noted Date Resolved Date Hypophosphatemia 10/11/2019 10/13/2019 Overview: Replace prn Temporal arteritis 11/17/2017 11/09/2018 Seizure disorder 07/03/2017 07/10/2017 Hematoma, postoperative 07/07/2014 08/11/19 15 Overview: 07/07/2014 Left arm duplex LEFT SIDE Negative for pseudoaneurysm, deep vein thrombosis and arteriovenous fistula. Brachial artery patent . Hematoma noted in region of incision at mid to distal medial upper arm measuring approximately 5.31 x 1.29 x 3.31cm. 07/08/2014 Hematoma stable, continue fátima wrap at discharge Ulcerative colitis 06/24/2014 11/09/2018 Overview: Patient has UC and is on Azulide, there is apparent resolution of symptoms with medication Last Assessment & Plan: Patient has UC and is on Azulide, there is apparent resolution of symptoms with that. Acute blood loss anemia 01/28/2014 10/13/19 20 Overview: Transfuse 2 units PRBC intra-op 10/10/19 Transfuse 2 units PRBC post-op Last Assessment & Plan: Assessment: +h/o anemia, last CBC 03/2019 normal H/H, new labs pending Thrombosis 11/12/2013 02/10/2014 Overview: 11/12/13 s/p lysis catheter placemenst for aortoiliac thrombosis. On heparin and tPA at present. Erythema of groin 10/30/2013 02/10/2014 Overview: Patient recently discharge on oral regimen of bactrim for 2 week course (till 11/20/13) for recurrent groin erythema Pain, postoperative, acute 10/30/201302/10 Overview: Patient on 300 mg og Neurotoin BID at home Patient started on [place] postoperatively, pain controlled at time of discharge. Ischemia of extremity 10/14/2013 02/10/2014 Overview: - admitted to [facility] vascular surgery twice in October 2013, s/p left femoral endarterectomy with patch, US guided access RCFA, L profundaplasty, RUFUS recanalization & stenting, CRISPIN stenting on 10/23/13 for aorto-occlusive critical limb ischemia - S/p 11/12-11/19/13 [facility] Vascular Surgery for aortoiliac thrombosis (BLE pain), underwent lysis of bilateral ileofemoral arteries. Started on anticoagulation with coumadin, also on aspirin 81 daily - chart review shows INR frequently sub-therapeutic on admissions Plan: - Warfarin therapeutic for 24 hours. Stop heparin. - Scheduled for OPD appointment with Dr. Sher on 02/10/2014. - PVR study of the lower limbs unchanged from previous. Vertebral compression fracture 07/05/2013 1 06/23/2019 Spondylosis of lumbar region without myelopathy or radiculopathy 12/18/2012 07/24/2020 Rectal bleeding 11/13/2013 documented as of this encounter (statuses as of 01/31/2022) [facility]04[facility]2020 History of Past illness Narrative* Problem Noted Date Resolved Date Hypophosphatemia 10/11/2019 10/13/2019 Overview: Replace prn Temporal arteritis 11/17/2017 11/09/2018 Seizure disorder 07/03/2017 07/10/2017 Hematoma, postoperative 07/07/2014 08/11/19 Overview: 07/07/2014 Left arm duplex LEFT SIDE Negative for pseudoaneurysm, deep vein thrombosis and arteriovenous fistula. Brachial artery patent . Hematoma noted in region of incision at mid to distal medial upper arm measuring approximately 5.31 x 1.29 x 3.31cm. 07/08/2014 Hematoma stable, continue fátima wrap at discharge Ulcerative colitis 06/24/2014 11/09/2018 Overview: Patient has UC and is on Azulide, there is apparent resolution of symptoms with medication Last Assessment & Plan: Patient has UC and is on Azulide, there is apparent resolution of symptoms with that. Acute blood loss anemia 01/28/2014 10/13/19 20 Overview: Transfuse 2 units PRBC intra-op 10/10/19 Transfuse 2 units PRBC post-op Last Assessment & Plan: Assessment: +h/o anemia, last CBC 03/2019 normal H/H, new labs pending Thrombosis 11/12/2013 02/10/2014 Overview: 11/12/13 s/p lysis catheter placemenst for aortoiliac thrombosis. On heparin and tPA at present. Erythema of groin 10/30/2013 02/10/2014 Overview: Patient recently discharge on oral regimen of bactrim for 2 week course (till 11/20/13) for recurrent groin erythema Pain, postoperative, acute 10/30/201302/10 Overview: Patient on 300 mg og Neurotoin BID at home Patient started on [place] postoperatively, pain controlled at time of discharge. Ischemia of extremity 10/14/2013 02/10/2014 Overview: - admitted to [facility] vascular surgery twice in October 2013, s/p left femoral endarterectomy with patch, US guided access RCFA, L profundaplasty, RUFUS recanalization & stenting, CRISPIN stenting on 10/23/13 for aorto-occlusive critical limb ischemia - S/p 11/12-11/19/13 [facility] Vascular Surgery for aortoiliac thrombosis (BLE pain), underwent lysis of bilateral ileofemoral arteries. Started on anticoagulation with coumadin, also on aspirin 81 daily - chart review shows INR frequently sub-therapeutic on admissions Plan: - Warfarin therapeutic for 24 hours. Stop heparin. - Scheduled for OPD appointment with Dr. Smolock on 02/10/2014. - PVR study of the lower limbs unchanged from previous. Vertebral compression fracture 07/05/2013 1 06/23/2019 Spondylosis of lumbar region without myelopathy or radiculopathy 12/18/2012 07/24/2020 Rectal bleeding 11/13/2013 documented as of this encounter (statuses as of 01/31/2022) [facility]04-24-2020 History of Past illness Narrative* Problem Noted Date Resolved Date Hypophosphatemia 10/11/2019 10/13/2019 Overview: Replace prn Temporal arteritis 11/17/2017 11/09/2018 Seizure disorder 07/03/2017 07/10/2017 Hematoma, postoperative 07/07/2014 08/11/19 Overview: 07/07/2014 Left arm duplex LEFT SIDE Negative for pseudoaneurysm, deep vein thrombosis and arteriovenous fistula. Brachial artery patent . Hematoma noted in region of incision at mid to distal medial upper arm measuring approximately 5.31 x 1.29 x 3.31cm. 07/08/2014 Hematoma stable, continue fátima wrap at discharge Ulcerative colitis 06/24/2014 11/09/2018 Overview: Patient has UC and is on Azulide, there is apparent resolution of symptoms with medication Last Assessment & Plan: Patient has UC and is on Azulide, there is apparent resolution of symptoms with that. Acute blood loss anemia 01/28/2014 10/13/19 Overview: Transfuse 2 units PRBC intra-op 10/10/19 Transfuse 2 units PRBC post-op Last Assessment & Plan: Assessment: +h/o anemia, last CBC 03/2019 normal H/H, new labs pending Thrombosis 11/12/2013 02/10/2014 Overview: 11/12/13 s/p lysis catheter placemenst for aortoiliac thrombosis. On heparin and tPA at present. Erythema of groin 10/30/2013 02/10/2014 Overview: Patient recently discharge on oral regimen of bactrim for 2 week course (till 11/20/13) for recurrent groin erythema Pain, postoperative, acute 10/30/201302/10 Overview: Patient on 300 mg og Neurotoin BID at home Patient started on [place] postoperatively, pain controlled at time of discharge. Ischemia of extremity 10/14/2013 02/10/2014 Overview: - admitted to [facility] vascular surgery twice in October 2013, s/p left femoral endarterectomy with patch, US guided access RCFA, L profundaplasty, RUFUS recanalization & stenting, CRISPIN stenting on 10/23/13 for aorto-occlusive critical limb ischemia - S/p 11/12-11/19/13 [facility] Vascular Surgery for aortoiliac thrombosis (BLE pain), underwent lysis of bilateral ileofemoral arteries. Started on anticoagulation with coumadin, also on aspirin 81 daily - chart review shows INR frequently sub-therapeutic on admissions Plan: - Warfarin therapeutic for 24 hours. Stop heparin. - Scheduled for OPD appointment with Dr. Sher on 02/10/2014. - PVR study of the lower limbs unchanged from previous. Vertebral compression fracture 07/05/2013 1 06/23/2019 Spondylosis of lumbar region without myelopathy or radiculopathy 12/18/2012 07/24/2020 Rectal bleeding 11/13/2013 documented as of this encounter (statuses as of 01/31/2022) [facility]04-24-2020 History of Past illness Narrative* Problem Noted Date Resolved Date Hypophosphatemia 10/11/2019 10/13/2019 Overview: Replace prn Temporal arteritis 11/17/2017 11/09/2018 Seizure disorder 07/03/2017 07/10/2017 Hematoma, postoperative 07/07/2014 08/11/19 15 Overview: 07/07/2014 Left arm duplex LEFT SIDE Negative for pseudoaneurysm, deep vein thrombosis and arteriovenous fistula. Brachial artery patent . Hematoma noted in region of incision at mid to distal medial upper arm measuring approximately 5.31 x 1.29 x 3.31cm. 07/08/2014 Hematoma stable, continue fátima wrap at discharge Ulcerative colitis 06/24/2014 11/09/2018 Overview: Patient has UC and is on Azulide, there is apparent resolution of symptoms with medication Last Assessment & Plan: Patient has UC and is on Azulide, there is apparent resolution of symptoms with that. Acute blood loss anemia 01/28/2014 10/13/19 Overview: Transfuse 2 units PRBC intra-op 10/10/19 Transfuse 2 units PRBC post-op Last Assessment & Plan: Assessment: +h/o anemia, last CBC 03/2019 normal H/H, new labs pending Thrombosis 11/12/2013 02/10/2014 Overview: 11/12/13 s/p lysis catheter placemenst for aortoiliac thrombosis. On heparin and tPA at present. Erythema of groin 10/30/2013 02/10/2014 Overview: Patient recently discharge on oral regimen of bactrim for 2 week course (till 11/20/13) for recurrent groin erythema Pain, postoperative, acute 10/30/201302/10 Overview: Patient on 300 mg og Neurotoin BID at home Patient started on [place] postoperatively, pain controlled at time of discharge. Ischemia of extremity 10/14/2013 02/10/2014 Overview: - admitted to [facility] vascular surgery twice in October 2013, s/p left femoral endarterectomy with patch, US guided access RCFA, L profundaplasty, RUFUS recanalization & stenting, CRISPIN stenting on 10/23/13 for aorto-occlusive critical limb ischemia - S/p 11/12-11/19/13 [facility] Vascular Surgery for aortoiliac thrombosis (BLE pain), underwent lysis of bilateral ileofemoral arteries. Started on anticoagulation with coumadin, also on aspirin 81 daily - chart review shows INR frequently sub-therapeutic on admissions Plan: - Warfarin therapeutic for 24 hours. Stop heparin. - Scheduled for OPD appointment with Dr. Sher on 02/10/2014. - PVR study of the lower limbs unchanged from previous. Vertebral compression fracture 07/05/2013 1 06/23/2019 Spondylosis of lumbar region without myelopathy or radiculopathy 12/18/2012 07/24/2020 Rectal bleeding 11/13/2013 documented as of this encounter (statuses as of 02/03/2022) [facility]04-24-2020 History of Past illness Narrative* Problem Noted Date Resolved Date Hypophosphatemia 10/11/2019 10/13/2019 Overview: Replace prn Temporal arteritis 11/17/2017 11/09/2018 Seizure disorder 07/03/2017 07/10/2017 Hematoma, postoperative 07/07/2014 08/11/19 15 Overview: 07/07/2014 Left arm duplex LEFT SIDE Negative for pseudoaneurysm, deep vein thrombosis and arteriovenous fistula. Brachial artery patent . Hematoma noted in region of incision at mid to distal medial upper arm measuring approximately 5.31 x 1.29 x 3.31cm. 07/08/2014 Hematoma stable, continue fátima wrap at discharge Ulcerative colitis 06/24/2014 11/09/2018 Overview: Patient has UC and is on Azulide, there is apparent resolution of symptoms with medication Last Assessment & Plan: Patient has UC and is on Azulide, there is apparent resolution of symptoms with that. Acute blood loss anemia 01/28/2014 10/13/19 20 Overview: Transfuse 2 units PRBC intra-op 10/10/19 Transfuse 2 units PRBC post-op Last Assessment & Plan: Assessment: +h/o anemia, last CBC 03/2019 normal H/H, new labs pending Thrombosis 11/12/2013 02/10/2014 Overview: 11/12/13 s/p lysis catheter placemenst for aortoiliac thrombosis. On heparin and tPA at present. Erythema of groin 10/30/2013 02/10/2014 Overview: Patient recently discharge on oral regimen of bactrim for 2 week course (till 11/20/13) for recurrent groin erythema Pain, postoperative, acute 10/30/201302/10 Overview: Patient on 300 mg og Neurotoin BID at home Patient started on [place] postoperatively, pain controlled at time of discharge. Ischemia of extremity 10/14/2013 02/10/2014 Overview: - admitted to [facility] vascular surgery twice in October 2013, s/p left femoral endarterectomy with patch, US guided access RCFA, L profundaplasty, RUFUS recanalization & stenting, CRISPIN stenting on 10/23/13 for aorto-occlusive critical limb ischemia - S/p 11/12-11/19/13 [facility] Vascular Surgery for aortoiliac thrombosis (BLE pain), underwent lysis of bilateral ileofemoral arteries. Started on anticoagulation with coumadin, also on aspirin 81 daily - chart review shows INR frequently sub-therapeutic on admissions Plan: - Warfarin therapeutic for 24 hours. Stop heparin. - Scheduled for OPD appointment with Dr. Sher on 02/10/2014. - PVR study of the lower limbs unchanged from previous. Vertebral compression fracture 07/05/2013 1 06/23/2019 Spondylosis of lumbar region without myelopathy or radiculopathy 12/18/2012 07/24/2020 Rectal bleeding 11/13/2013 documented as of this encounter (statuses as of 02/24/2022) [facility]04-24-2020 History of Past illness Narrative* Problem Noted Date Resolved Date Hypophosphatemia 10/11/2019 10/13/2019 Overview: Replace prn Temporal arteritis 11/17/2017 11/09/2018 Seizure disorder 07/03/2017 07/10/2017 Hematoma, postoperative 07/07/2014 08/11/19 15 Overview: 07/07/2014 Left arm duplex LEFT SIDE Negative for pseudoaneurysm, deep vein thrombosis and arteriovenous fistula. Brachial artery patent . Hematoma noted in region of incision at mid to distal medial upper arm measuring approximately 5.31 x 1.29 x 3.31cm. 07/08/2014 Hematoma stable, continue fátima wrap at discharge Ulcerative colitis 06/24/2014 11/09/2018 Overview: Patient has UC and is on Azulide, there is apparent resolution of symptoms with medication Last Assessment & Plan: Patient has UC and is on Azulide, there is apparent resolution of symptoms with that. Acute blood loss anemia 01/28/2014 10/13/19 Overview: Transfuse 2 units PRBC intra-op 10/10/19 Transfuse 2 units PRBC post-op Last Assessment & Plan: Assessment: +h/o anemia, last CBC 03/2019 normal H/H, new labs pending Thrombosis 11/12/2013 02/10/2014 Overview: 11/12/13 s/p lysis catheter placemenst for aortoiliac thrombosis. On heparin and tPA at present. Erythema of groin 10/30/2013 02/10/2014 Overview: Patient recently discharge on oral regimen of bactrim for 2 week course (till 11/20/13) for recurrent groin erythema Pain, postoperative, acute 10/30/201302/10 Overview: Patient on 300 mg og Neurotoin BID at home Patient started on [place] postoperatively, pain controlled at time of discharge. Ischemia of extremity 10/14/2013 02/10/2014 Overview: - admitted to [facility] vascular surgery twice in October 2013, s/p left femoral endarterectomy with patch, US guided access RCFA, L profundaplasty, RUFUS recanalization & stenting, CRISPIN stenting on 10/23/13 for aorto-occlusive critical limb ischemia - S/p 11/12-11/19/13 [facility] Vascular Surgery for aortoiliac thrombosis (BLE pain), underwent lysis of bilateral ileofemoral arteries. Started on anticoagulation with coumadin, also on aspirin 81 daily - chart review shows INR frequently sub-therapeutic on admissions Plan: - Warfarin therapeutic for 24 hours. Stop heparin. - Scheduled for OPD appointment with Dr. Sher on 02/10/2014. - PVR study of the lower limbs unchanged from previous. Vertebral compression fracture 07/05/2013 1 06/23/2019 Spondylosis of lumbar region without myelopathy or radiculopathy 12/18/2012 07/24/2020 Rectal bleeding 11/13/2013 documented as of this encounter (statuses as of 02/24/2022) [facility]04-24-2020 History of Past illness Narrative* Problem Noted Date Resolved Date Hypophosphatemia 10/11/2019 10/13/2019 Overview: Replace prn Temporal arteritis 11/17/2017 11/09/2018 Seizure disorder 07/03/2017 07/10/2017 Hematoma, postoperative 07/07/2014 08/11/19 15 Overview: 07/07/2014 Left arm duplex LEFT SIDE Negative for pseudoaneurysm, deep vein thrombosis and arteriovenous fistula. Brachial artery patent . Hematoma noted in region of incision at mid to distal medial upper arm measuring approximately 5.31 x 1.29 x 3.31cm. 07/08/2014 Hematoma stable, continue fátima wrap at discharge Ulcerative colitis 06/24/2014 11/09/2018 Overview: Patient has UC and is on Azulide, there is apparent resolution of symptoms with medication Last Assessment & Plan: Patient has UC and is on Azulide, there is apparent resolution of symptoms with that. Acute blood loss anemia 01/28/2014 10/13/19 20 Overview: Transfuse 2 units PRBC intra-op 10/10/19 Transfuse 2 units PRBC post-op Last Assessment & Plan: Assessment: +h/o anemia, last CBC 03/2019 normal H/H, new labs pending Thrombosis 11/12/2013 02/10/2014 Overview: 11/12/13 s/p lysis catheter placemenst for aortoiliac thrombosis. On heparin and tPA at present. Erythema of groin 10/30/2013 02/10/2014 Overview: Patient recently discharge on oral regimen of bactrim for 2 week course (till 11/20/13) for recurrent groin erythema Pain, postoperative, acute 10/30/201302/10 Overview: Patient on 300 mg og Neurotoin BID at home Patient started on [place] postoperatively, pain controlled at time of discharge. Ischemia of extremity 10/14/2013 02/10/2014 Overview: - admitted to [facility] vascular surgery twice in October 2013, s/p left femoral endarterectomy with patch, US guided access RCFA, L profundaplasty, RUFSU recanalization & stenting, CRISPIN stenting on 10/23/13 for aorto-occlusive critical limb ischemia - S/p 11/12-11/19/13 [facility] Vascular Surgery for aortoiliac thrombosis (BLE pain), underwent lysis of bilateral ileofemoral arteries. Started on anticoagulation with coumadin, also on aspirin 81 daily - chart review shows INR frequently sub-therapeutic on admissions Plan: - Warfarin therapeutic for 24 hours. Stop heparin. - Scheduled for OPD appointment with Dr. Sher on 02/10/2014. - PVR study of the lower limbs unchanged from previous. Vertebral compression fracture 07/05/2013 1 06/23/2019 Spondylosis of lumbar region without myelopathy or radiculopathy 12/18/2012 07/24/2020 Rectal bleeding 11/13/2013 documented as of this encounter (statuses as of 03/02/2022) [facility]04-24-2020 History of Past illness Narrative* Problem Noted Date Resolved Date Hypophosphatemia 10/11/2019 10/13/2019 Overview: Replace prn Temporal arteritis 11/17/2017 11/09/2018 Seizure disorder 07/03/2017 07/10/2017 Hematoma, postoperative 07/07/2014 08/11/19 15 Overview: 07/07/2014 Left arm duplex LEFT SIDE Negative for pseudoaneurysm, deep vein thrombosis and arteriovenous fistula. Brachial artery patent . Hematoma noted in region of incision at mid to distal medial upper arm measuring approximately 5.31 x 1.29 x 3.31cm. 07/08/2014 Hematoma stable, continue fátima wrap at discharge Ulcerative colitis 06/24/2014 11/09/2018 Overview: Patient has UC and is on Azulide, there is apparent resolution of symptoms with medication Last Assessment & Plan: Patient has UC and is on Azulide, there is apparent resolution of symptoms with that. Acute blood loss anemia 01/28/2014 10/13/19 Overview: Transfuse 2 units PRBC intra-op 10/10/19 Transfuse 2 units PRBC post-op Last Assessment & Plan: Assessment: +h/o anemia, last CBC 03/2019 normal H/H, new labs pending Thrombosis 11/12/2013 02/10/2014 Overview: 11/12/13 s/p lysis catheter placemenst for aortoiliac thrombosis. On heparin and tPA at present. Erythema of groin 10/30/2013 02/10/2014 Overview: Patient recently discharge on oral regimen of bactrim for 2 week course (till 11/20/13) for recurrent groin erythema Pain, postoperative, acute 10/30/201302/10 Overview: Patient on 300 mg og Neurotoin BID at home Patient started on [place] postoperatively, pain controlled at time of discharge. Ischemia of extremity 10/14/2013 02/10/2014 Overview: - admitted to [facility] vascular surgery twice in October 2013, s/p left femoral endarterectomy with patch, US guided access RCFA, L profundaplasty, RUFUS recanalization & stenting, CRISPIN stenting on 10/23/13 for aorto-occlusive critical limb ischemia - S/p 11/12-11/19/13 [facility] Vascular Surgery for aortoiliac thrombosis (BLE pain), underwent lysis of bilateral ileofemoral arteries. Started on anticoagulation with coumadin, also on aspirin 81 daily - chart review shows INR frequently sub-therapeutic on admissions Plan: - Warfarin therapeutic for 24 hours. Stop heparin. - Scheduled for OPD appointment with Dr. Sher on 02/10/2014. - PVR study of the lower limbs unchanged from previous. Vertebral compression fracture 07/05/2013 1 06/23/2019 Spondylosis of lumbar region without myelopathy or radiculopathy 12/18/2012 07/24/2020 Rectal bleeding 11/13/2013 documented as of this encounter (statuses as of 03/10/2022) [facility]04-24-2020 History of Past illness Narrative* Problem Noted Date Resolved Date Hypophosphatemia 10/11/2019 10/13/2019 Overview: Replace prn Temporal arteritis 11/17/2017 11/09/2018 Seizure disorder 07/03/2017 07/10/2017 Hematoma, postoperative 07/07/2014 08/11/19 15 Overview: 07/07/2014 Left arm duplex LEFT SIDE Negative for pseudoaneurysm, deep vein thrombosis and arteriovenous fistula. Brachial artery patent . Hematoma noted in region of incision at mid to distal medial upper arm measuring approximately 5.31 x 1.29 x 3.31cm. 07/08/2014 Hematoma stable, continue fátima wrap at discharge Ulcerative colitis 06/24/2014 11/09/2018 Overview: Patient has UC and is on Azulide, there is apparent resolution of symptoms with medication Last Assessment & Plan: Patient has UC and is on Azulide, there is apparent resolution of symptoms with that. Acute blood loss anemia 01/28/2014 10/13/19 20 Overview: Transfuse 2 units PRBC intra-op 10/10/19 Transfuse 2 units PRBC post-op Last Assessment & Plan: Assessment: +h/o anemia, last CBC 03/2019 normal H/H, new labs pending Thrombosis 11/12/2013 02/10/2014 Overview: 11/12/13 s/p lysis catheter placemenst for aortoiliac thrombosis. On heparin and tPA at present. Erythema of groin 10/30/2013 02/10/2014 Overview: Patient recently discharge on oral regimen of bactrim for 2 week course (till 11/20/13) for recurrent groin erythema Pain, postoperative, acute 10/30/201302/10 Overview: Patient on 300 mg og Neurotoin BID at home Patient started on [place] postoperatively, pain controlled at time of discharge. Ischemia of extremity 10/14/2013 02/10/2014 Overview: - admitted to [facility] vascular surgery twice in October 2013, s/p left femoral endarterectomy with patch, US guided access RCFA, L profundaplasty, RUFUS recanalization & stenting, CRISPIN stenting on 10/23/13 for aorto-occlusive critical limb ischemia - S/p 11/12-11/19/13 [facility] Vascular Surgery for aortoiliac thrombosis (BLE pain), underwent lysis of bilateral ileofemoral arteries. Started on anticoagulation with coumadin, also on aspirin 81 daily - chart review shows INR frequently sub-therapeutic on admissions Plan: - Warfarin therapeutic for 24 hours. Stop heparin. - Scheduled for OPD appointment with Dr. Sher on 02/10/2014. - PVR study of the lower limbs unchanged from previous. Vertebral compression fracture 07/05/2013 1 06/23/2019 Spondylosis of lumbar region without myelopathy or radiculopathy 12/18/2012 07/24/2020 Rectal bleeding 11/13/2013 documented as of this encounter (statuses as of 03/10/2022) [facility]04-[facility]2020 History of Past illness Narrative* Problem Noted Date Resolved Date Hypophosphatemia 10/11/2019 10/13/2019 Overview: Replace prn Temporal arteritis 11/17/2017 11/09/2018 Seizure disorder 07/03/2017 07/10/2017 Hematoma, postoperative 07/07/2014 08/11/19 15 Overview: 07/07/2014 Left arm duplex LEFT SIDE Negative for pseudoaneurysm, deep vein thrombosis and arteriovenous fistula. Brachial artery patent . Hematoma noted in region of incision at mid to distal medial upper arm measuring approximately 5.31 x 1.29 x 3.31cm. 07/08/2014 Hematoma stable, continue fátima wrap at discharge Ulcerative colitis 06/24/2014 11/09/2018 Overview: Patient has UC and is on Azulide, there is apparent resolution of symptoms with medication Last Assessment & Plan: Patient has UC and is on Azulide, there is apparent resolution of symptoms with that. Acute blood loss anemia 01/28/2014 10/13/19 Overview: Transfuse 2 units PRBC intra-op 10/10/19 Transfuse 2 units PRBC post-op Last Assessment & Plan: Assessment: +h/o anemia, last CBC 03/2019 normal H/H, new labs pending Thrombosis 11/12/2013 02/10/2014 Overview: 11/12/13 s/p lysis catheter placemenst for aortoiliac thrombosis. On heparin and tPA at present. Erythema of groin 10/30/2013 02/10/2014 Overview: Patient recently discharge on oral regimen of bactrim for 2 week course (till 11/20/13) for recurrent groin erythema Pain, postoperative, acute 10/30/201302/10 Overview: Patient on 300 mg og Neurotoin BID at home Patient started on [place] postoperatively, pain controlled at time of discharge. Ischemia of extremity 10/14/2013 02/10/2014 Overview: - admitted to [facility] vascular surgery twice in October 2013, s/p left femoral endarterectomy with patch, US guided access RCFA, L profundaplasty, RUFUS recanalization & stenting, CRISPIN stenting on 10/23/13 for aorto-occlusive critical limb ischemia - S/p 11/12-11/19/13 [facility] Vascular Surgery for aortoiliac thrombosis (BLE pain), underwent lysis of bilateral ileofemoral arteries. Started on anticoagulation with coumadin, also on aspirin 81 daily - chart review shows INR frequently sub-therapeutic on admissions Plan: - Warfarin therapeutic for 24 hours. Stop heparin. - Scheduled for OPD appointment with Dr. Sher on 02/10/2014. - PVR study of the lower limbs unchanged from previous. Vertebral compression fracture 07/05/2013 1 06/23/2019 Spondylosis of lumbar region without myelopathy or radiculopathy 12/18/2012 07/24/2020 Rectal bleeding 11/13/2013 documented as of this encounter (statuses as of 03/11/2022) [facility]04-[facility]2020 History of Past illness Narrative* Problem Noted Date Resolved Date Hypophosphatemia 10/11/2019 10/13/2019 Overview: Replace prn Temporal arteritis 11/17/2017 11/09/2018 Seizure disorder 07/03/2017 07/10/2017 Hematoma, postoperative 07/07/2014 08/11/19 15 Overview: 07/07/2014 Left arm duplex LEFT SIDE Negative for pseudoaneurysm, deep vein thrombosis and arteriovenous fistula. Brachial artery patent . Hematoma noted in region of incision at mid to distal medial upper arm measuring approximately 5.31 x 1.29 x 3.31cm. 07/08/2014 Hematoma stable, continue fátima wrap at discharge Ulcerative colitis 06/24/2014 11/09/2018 Overview: Patient has UC and is on Azulide, there is apparent resolution of symptoms with medication Last Assessment & Plan: Patient has UC and is on Azulide, there is apparent resolution of symptoms with that. Acute blood loss anemia 01/28/2014 10/13/19 20 Overview: Transfuse 2 units PRBC intra-op 10/10/19 Transfuse 2 units PRBC post-op Last Assessment & Plan: Assessment: +h/o anemia, last CBC 03/2019 normal H/H, new labs pending Thrombosis 11/12/2013 02/10/2014 Overview: 11/12/13 s/p lysis catheter placemenst for aortoiliac thrombosis. On heparin and tPA at present. Erythema of groin 10/30/2013 02/10/2014 Overview: Patient recently discharge on oral regimen of bactrim for 2 week course (till 11/20/13) for recurrent groin erythema Pain, postoperative, acute 10/30/201302/10 Overview: Patient on 300 mg og Neurotoin BID at home Patient started on [place] postoperatively, pain controlled at time of discharge. Ischemia of extremity 10/14/2013 02/10/2014 Overview: - admitted to [facility] vascular surgery twice in October 2013, s/p left femoral endarterectomy with patch, US guided access RCFA, L profundaplasty, RUFUS recanalization & stenting, CRISPIN stenting on 10/23/13 for aorto-occlusive critical limb ischemia - S/p 11/12-11/19/13 [facility] Vascular Surgery for aortoiliac thrombosis (BLE pain), underwent lysis of bilateral ileofemoral arteries. Started on anticoagulation with coumadin, also on aspirin 81 daily - chart review shows INR frequently sub-therapeutic on admissions Plan: - Warfarin therapeutic for 24 hours. Stop heparin. - Scheduled for OPD appointment with Dr. Sher on 02/10/2014. - PVR study of the lower limbs unchanged from previous. Vertebral compression fracture 07/05/2013 1 06/23/2019 Spondylosis of lumbar region without myelopathy or radiculopathy 12/18/2012 07/24/2020 Rectal bleeding 11/13/2013 documented as of this encounter (statuses as of 03/11/2022) [facility]04-24-2020 History of Past illness Narrative* Problem Noted Date Resolved Date Hypophosphatemia 10/11/2019 10/13/2019 Overview: Replace prn Temporal arteritis 11/17/2017 11/09/2018 Seizure disorder 07/03/2017 07/10/2017 Hematoma, postoperative 07/07/2014 08/11/19 15 Overview: 07/07/2014 Left arm duplex LEFT SIDE Negative for pseudoaneurysm, deep vein thrombosis and arteriovenous fistula. Brachial artery patent . Hematoma noted in region of incision at mid to distal medial upper arm measuring approximately 5.31 x 1.29 x 3.31cm. 07/08/2014 Hematoma stable, continue fátima wrap at discharge Ulcerative colitis 06/24/2014 11/09/2018 Overview: Patient has UC and is on Azulide, there is apparent resolution of symptoms with medication Last Assessment & Plan: Patient has UC and is on Azulide, there is apparent resolution of symptoms with that. Acute blood loss anemia 01/28/2014 10/13/19 Overview: Transfuse 2 units PRBC intra-op 10/10/19 Transfuse 2 units PRBC post-op Last Assessment & Plan: Assessment: +h/o anemia, last CBC 03/2019 normal H/H, new labs pending Thrombosis 11/12/2013 02/10/2014 Overview: 11/12/13 s/p lysis catheter placemenst for aortoiliac thrombosis. On heparin and tPA at present. Erythema of groin 10/30/2013 02/10/2014 Overview: Patient recently discharge on oral regimen of bactrim for 2 week course (till 11/20/13) for recurrent groin erythema Pain, postoperative, acute 10/30/201302/10 Overview: Patient on 300 mg og Neurotoin BID at home Patient started on Poteau postoperatively, pain controlled at time of discharge. Ischemia of extremity 10/14/2013 02/10/2014 Overview: - admitted to [facility] vascular surgery twice in October 2013, s/p left femoral endarterectomy with patch, US guided access RCFA, L profundaplasty, RUFUS recanalization & stenting, CRISPIN stenting on 10/23/13 for aorto-occlusive critical limb ischemia - S/p 11/12-11/19/13 [facility] for aortoiliac thrombosis (BLE pain), underwent lysis of bilateral ileofemoral arteries. Started on anticoagulation with coumadin, also on aspirin 81 daily - chart review shows INR frequently sub-therapeutic on admissions Plan: - Warfarin therapeutic for 24 hours. Stop heparin. - Scheduled for OPD appointment with Dr. Sher on 02/10/2014. - PVR study of the lower limbs unchanged from previous. Vertebral compression fracture 07/05/2013 1 06/23/2019 Spondylosis of lumbar region without myelopathy or radiculopathy 12/18/2012 07/24/2020 Rectal bleeding 11/13/2013 documented as of this encounter (statuses as of 03/18/2022) [facility]04-24-2020 History of Past illness Narrative* Problem Noted Date Resolved Date Hypophosphatemia 10/11/2019 10/13/2019 Overview: Replace prn Temporal arteritis 11/17/2017 11/09/2018 Seizure disorder 07/03/2017 07/10/2017 Hematoma, postoperative 07/07/2014 08/11/19 15 Overview: 07/07/2014 Left arm duplex LEFT SIDE Negative for pseudoaneurysm, deep vein thrombosis and arteriovenous fistula. Brachial artery patent . Hematoma noted in region of incision at mid to distal medial upper arm measuring approximately 5.31 x 1.29 x 3.31cm. 07/08/2014 Hematoma stable, continue fátima wrap at discharge Ulcerative colitis 06/24/2014 11/09/2018 Overview: Patient has UC and is on Azulide, there is apparent resolution of symptoms with medication Last Assessment & Plan: Patient has UC and is on Azulide, there is apparent resolution of symptoms with that. Acute blood loss anemia 01/28/2014 10/13/19 20 Overview: Transfuse 2 units PRBC intra-op 10/10/19 Transfuse 2 units PRBC post-op Last Assessment & Plan: Assessment: +h/o anemia, last CBC 03/2019 normal H/H, new labs pending Thrombosis 11/12/2013 02/10/2014 Overview: 11/12/13 s/p lysis catheter placemenst for aortoiliac thrombosis. On heparin and tPA at present. Erythema of groin 10/30/2013 02/10/2014 Overview: Patient recently discharge on oral regimen of bactrim for 2 week course (till 11/20/13) for recurrent groin erythema Pain, postoperative, acute 10/30/201302/10 Overview: Patient on 300 mg og Neurotoin BID at home Patient started on Poteau postoperatively, pain controlled at time of discharge. Ischemia of extremity 10/14/2013 02/10/2014 Overview: - admitted to [facility] vascular surgery twice in October 2013, s/p left femoral endarterectomy with patch, US guided access RCFA, L profundaplasty, RUFUS recanalization & stenting, CRISPIN stenting on 10/23/13 for aorto-occlusive critical limb ischemia - S/p 11/12-11/19/13 [facility] for aortoiliac thrombosis (BLE pain), underwent lysis of bilateral ileofemoral arteries. Started on anticoagulation with coumadin, also on aspirin 81 daily - chart review shows INR frequently sub-therapeutic on admissions Plan: - Warfarin therapeutic for 24 hours. Stop heparin. - Scheduled for OPD appointment with Dr. Sher on 02/10/2014. - PVR study of the lower limbs unchanged from previous. Vertebral compression fracture 07/05/2013 1 06/23/2019 Spondylosis of lumbar region without myelopathy or radiculopathy 12/18/2012 07/24/2020 Rectal bleeding 11/13/2013 documented as of this encounter (statuses as of 03/24/2022) [facility]04-24-2020 History of Past illness Narrative* Problem Noted Date Resolved Date Hypophosphatemia 10/11/2019 10/13/2019 Overview: Replace prn Temporal arteritis 11/17/2017 11/09/2018 Seizure disorder 07/03/2017 07/10/2017 Hematoma, postoperative 07/07/2014 08/11/19 15 Overview: 07/07/2014 Left arm duplex LEFT SIDE Negative for pseudoaneurysm, deep vein thrombosis and arteriovenous fistula. Brachial artery patent . Hematoma noted in region of incision at mid to distal medial upper arm measuring approximately 5.31 x 1.29 x 3.31cm. 07/08/2014 Hematoma stable, continue fátima wrap at discharge Ulcerative colitis 06/24/2014 11/09/2018 Overview: Patient has UC and is on Azulide, there is apparent resolution of symptoms with medication Last Assessment & Plan: Patient has UC and is on Azulide, there is apparent resolution of symptoms with that. Acute blood loss anemia 01/28/2014 10/13/19 Overview: Transfuse 2 units PRBC intra-op 10/10/19 Transfuse 2 units PRBC post-op Last Assessment & Plan: Assessment: +h/o anemia, last CBC 03/2019 normal H/H, new labs pending Thrombosis 11/12/2013 02/10/2014 Overview: 11/12/13 s/p lysis catheter placemenst for aortoiliac thrombosis. On heparin and tPA at present. Erythema of groin 10/30/2013 02/10/2014 Overview: Patient recently discharge on oral regimen of bactrim for 2 week course (till 11/20/13) for recurrent groin erythema Pain, postoperative, acute 10/30/201302/10 Overview: Patient on 300 mg og Neurotoin BID at home Patient started on Pote[place] postoperatively, pain controlled at time of discharge. Ischemia of extremity 10/14/2013 02/10/2014 Overview: - admitted to [facility] vascular surgery twice in October 2013, s/p left femoral endarterectomy with patch, US guided access RCFA, L profundaplasty, RUFUS recanalization & stenting, CRISPIN stenting on 10/23/13 for aorto-occlusive critical limb ischemia - S/p 11/12-11/19/13 [facility] V[facility] Surgery for aortoiliac thrombosis (BLE pain), underwent lysis of bilateral ileofemoral arteries. Started on anticoagulation with coumadin, also on aspirin 81 daily - chart review shows INR frequently sub-therapeutic on admissions Plan: - Warfarin therapeutic for 24 hours. Stop heparin. - Scheduled for OPD appointment with Dr. Sher on 02/10/2014. - PVR study of the lower limbs unchanged from previous. Vertebral compression fracture 07/05/2013 1 06/23/2019 Spondylosis of lumbar region without myelopathy or radiculopathy 12/18/2012 07/24/2020 Rectal bleeding 11/13/2013 documented as of this encounter (statuses as of 04/01/2022) [facility]04-24-2020 History of Past illness Narrative* Problem Noted Date Resolved Date Hypophosphatemia 10/11/2019 10/13/2019 Overview: Replace prn Temporal arteritis 11/17/2017 11/09/2018 Seizure disorder 07/03/2017 07/10/2017 Hematoma, postoperative 07/07/2014 08/11/19 15 Overview: 07/07/2014 Left arm duplex LEFT SIDE Negative for pseudoaneurysm, deep vein thrombosis and arteriovenous fistula. Brachial artery patent . Hematoma noted in region of incision at mid to distal medial upper arm measuring approximately 5.31 x 1.29 x 3.31cm. 07/08/2014 Hematoma stable, continue fátima wrap at discharge Ulcerative colitis 06/24/2014 11/09/2018 Overview: Patient has UC and is on Azulide, there is apparent resolution of symptoms with medication Last Assessment & Plan: Patient has UC and is on Azulide, there is apparent resolution of symptoms with that. Acute blood loss anemia 01/28/2014 10/13/19 20 Overview: Transfuse 2 units PRBC intra-op 10/10/19 Transfuse 2 units PRBC post-op Last Assessment & Plan: Assessment: +h/o anemia, last CBC 03/2019 normal H/H, new labs pending Thrombosis 11/12/2013 02/10/2014 Overview: 11/12/13 s/p lysis catheter placemenst for aortoiliac thrombosis. On heparin and tPA at present. Erythema of groin 10/30/2013 02/10/2014 Overview: Patient recently discharge on oral regimen of bactrim for 2 week course (till 11/20/13) for recurrent groin erythema Pain, postoperative, acute 10/30/201302/10 Overview: Patient on 300 mg og Neurotoin BID at home Patient started on Pote[place] postoperatively, pain controlled at time of discharge. Ischemia of extremity 10/14/2013 02/10/2014 Overview: - admitted to [facility] vascular surgery twice in October 2013, s/p left femoral endarterectomy with patch, US guided access RCFA, L profundaplasty, RUFUS recanalization & stenting, CRISPIN stenting on 10/23/13 for aorto-occlusive critical limb ischemia - S/p 11/12-11/19/13 [facility] Vascular Surgery for aortoiliac thrombosis (BLE pain), underwent lysis of bilateral ileofemoral arteries. Started on anticoagulation with coumadin, also on aspirin 81 daily - chart review shows INR frequently sub-therapeutic on admissions Plan: - Warfarin therapeutic for 24 hours. Stop heparin. - Scheduled for OPD appointment with Dr. Sher on 02/10/2014. - PVR study of the lower limbs unchanged from previous. Vertebral compression fracture 07/05/2013 1 06/23/2019 Spondylosis of lumbar region without myelopathy or radiculopathy 12/18/2012 07/24/2020 Rectal bleeding 11/13/2013 documented as of this encounter (statuses as of 06/19/2022) [facility]04-24-2020 History of Past illness Narrative* Problem Noted Date Resolved Date Hypophosphatemia 10/11/2019 10/13/2019 Overview: Replace prn Temporal arteritis 11/17/2017 11/09/2018 Seizure disorder 07/03/2017 07/10/2017 Hematoma, postoperative 07/07/2014 08/11/19 15 Overview: 07/07/2014 Left arm duplex LEFT SIDE Negative for pseudoaneurysm, deep vein thrombosis and arteriovenous fistula. Brachial artery patent . Hematoma noted in region of incision at mid to distal medial upper arm measuring approximately 5.31 x 1.29 x 3.31cm. 07/08/2014 Hematoma stable, continue fátima wrap at discharge Ulcerative colitis 06/24/2014 11/09/2018 Overview: Patient has UC and is on Azulide, there is apparent resolution of symptoms with medication Last Assessment & Plan: Patient has UC and is on Azulide, there is apparent resolution of symptoms with that. Acute blood loss anemia 01/28/2014 10/13/19 Overview: Transfuse 2 units PRBC intra-op 10/10/19 Transfuse 2 units PRBC post-op Last Assessment & Plan: Assessment: +h/o anemia, last CBC 03/2019 normal H/H, new labs pending Thrombosis 11/12/2013 02/10/2014 Overview: 11/12/13 s/p lysis catheter placemenst for aortoiliac thrombosis. On heparin and tPA at present. Erythema of groin 10/30/2013 02/10/2014 Overview: Patient recently discharge on oral regimen of bactrim for 2 week course (till 11/20/13) for recurrent groin erythema Pain, postoperative, acute 10/30/201302/10 Overview: Patient on 300 mg og Neurotoin BID at home Patient started on Pote[place] postoperatively, pain controlled at time of discharge. Ischemia of extremity 10/14/2013 02/10/2014 Overview: - admitted to [facility] vascular surgery twice in October 2013, s/p left femoral endarterectomy with patch, US guided access RCFA, L profundaplasty, RUFUS recanalization & stenting, CRISPIN stenting on 10/23/13 for aorto-occlusive critical limb ischemia - S/p 11/12-11/19/13 [facility] Vascular Surgery for aortoiliac thrombosis (BLE pain), underwent lysis of bilateral ileofemoral arteries. Started on anticoagulation with coumadin, also on aspirin 81 daily - chart review shows INR frequently sub-therapeutic on admissions Plan: - Warfarin therapeutic for 24 hours. Stop heparin. - Scheduled for OPD appointment with Dr. Sher on 02/10/2014. - PVR study of the lower limbs unchanged from previous. Vertebral compression fracture 07/05/2013 1 06/23/2019 Spondylosis of lumbar region without myelopathy or radiculopathy 12/18/2012 07/24/2020 Rectal bleeding 11/13/2013 documented as of this encounter (statuses as of 08/02/2022) [facility]04-24-2020 History of Past illness Narrative* Problem Noted Date Resolved Date Hypophosphatemia 10/11/2019 10/13/2019 Overview: Replace prn Temporal arteritis 11/17/2017 11/09/2018 Seizure disorder 07/03/2017 07/10/2017 Acute GI bleeding 02/07/2016 08/18/2022 Overview: Assessment: -black stools present for a few weeks with hx of melena in the past -crampy mid-abdominal pain -Capsule endoscopy 01/15/14 showed 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 Sher regarding preference for anticoagulation given GI bleed and peripheral vascular disease -no NSAIDs once discharged home Pain in left shoulder 07/01/2015 08/18/2022 Last Assessment & Plan: He is waiting to hear about the MRI of the shoulder. Hematoma, postoperative 07/07/2014 08/11/19 15 Overview: 07/07/2014 Left arm duplex LEFT SIDE Negative for pseudoaneurysm, deep vein thrombosis and arteriovenous fistula. Brachial artery patent . Hematoma noted in region of incision at mid to distal medial upper arm measuring approximately 5.31 x 1.29 x 3.31cm. 07/08/2014 Hematoma stable, continue fátima wrap at discharge Ulcerative colitis 06/24/2014 11/09/2018 Overview: Patient has UC and is on Azulide, there is apparent resolution of symptoms with medication Last Assessment & Plan: Patient has UC and is on Azulide, there is apparent resolution of symptoms with that. Acute blood loss anemia 01/28/2014 10/13/19 Overview: Transfuse 2 units PRBC intra-op 10/10/19 Transfuse 2 units PRBC post-op Last Assessment & Plan: Assessment: +h/o anemia, last CBC 03/2019 normal H/H, new labs pending Melena 12/15/2013 08/18/2022 Overview: - 12/17/13 EGD normal - 01/10/14 colonoscopy with non-bleeding hemorrhoids and two colonic angiodysplastic lesions in cecum, treated by fulguration - currently Coumadin and ASA held again, INR subtherapeutic on admission - Vital signs and Hgb have been stable, no more bleeding - no BMs today, +constipation Plan: - NPO/IVF - capsule just swallowed 01/16/14 (and 01/13/14?), per patient has not yet passed in his stool - H/H q12, transfuse if Hb <7 - consented for blood products transfusions, T&S - hold AC and asa, to restart once ?GIB resolves given high risk of stent thrombosis, f/u INR - check FOBT, C. diff, follow BMs Last Assessment & Plan: The patient is saying that he had melena for the past 3 days. He is on iron supplements in the past and is not sure if it is the iron or the melena. He is having a stomach ache for a long time. He thinks it is blood because when he wiped he had blood in it. Thrombosis 11/12/2013 02/10/2014 Overview: 11/12/13 s/p lysis catheter placemenst for aortoiliac thrombosis. On heparin and tPA at present. Erythema of groin 10/30/2013 02/10/2014 Overview: Patient recently discharge on oral regimen of bactrim for 2 week course (till 11/20/13) for recurrent groin erythema SUMMARY 10/30/2013 08/18/2022 Overview: Pedro Pablo Sierra is a 63 year old male with PMH significant for PVD, acute ischemic LE (October/2013) s/p CRSIPIN stenting on 10/23/13 for aorto-occlusive critical limb ischemia, CAD previous [place], DM, HTN, DLD, COPD, UC/IBD on sulfasalazine who was admitted on 01/27/2014 with BRBPR. He underwent colonoscopy yesterday which revealed a 3 mm sessile polyp in the ascending colon, with another preset in the descending colon, nonbleeding internal hemorrhoids and an angiodysplastic lesion in the ascending colon with stigmata of recent bleeding which was fulgurated. Overnight he had a minimal amount of bright red blood on his wipe after an episode of straining on the toilet. Hemoglobin is stable at 8.2 g/dL. Pain, postoperative, acute 10/30/201302/10 Overview: Patient on 300 mg og Neurotoin BID at home Patient started on Poteau postoperatively, pain controlled at time of discharge. Urinary retention 10/25/2013 08/18/2022 Overview: Home med: tamsulosin Plan: -Resume Tamsulosin DISPOSITION AND FOLLOW-UP 10/25/20132022 Overview: CM following for d/c needs. PT/OT to evaluate-->recommending home PT 07/08/2014 Discharge with home care today Ischemia of extremity 10/14/2013 02/10/2014 Overview: - admitted to [facility] vascular surgery twice in October 2013, s/p left femoral endarterectomy with patch, US guided access RCFA, L profundaplasty, RUFUS recanalization & stenting, CRISPIN stenting on 10/23/13 for aorto-occlusive critical limb ischemia - S/p 11/12-11/19/13 [facility] Surgery for aortoiliac thrombosis (BLE pain), underwent lysis of bilateral ileofemoral arteries. Started on anticoagulation with coumadin, also on aspirin 81 daily - chart review shows INR frequently sub-therapeutic on admissions Plan: - Warfarin therapeutic for 24 hours. Stop heparin. - Scheduled for OPD appointment with Dr. Sher on 02/10/2014. - PVR study of the lower limbs unchanged from previous. Vertebral compression fracture 07/05/2013 1 06/23/2019 Spondylosis of lumbar region without myelopathy or radiculopathy 12/18/2012 07/24/2020 Rectal bleeding 11/13/2013 documented as of this encounter (statuses as of 08/25/2022) [facility]04-24-2020 History of Past illness Narrative* Problem Noted Date Resolved Date Hypophosphatemia 10/11/2019 10/13/2019 Overview: Replace prn Temporal arteritis 11/17/2017 11/09/2018 Seizure disorder 07/03/2017 07/10/2017 Acute GI bleeding 02/07/2016 08/18/2022 Overview: Assessment: -black stools present for a few weeks with hx of melena in the past -crampy mid-abdominal pain -Capsule endoscopy 01/15/14 showed 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 Sher regarding preference for anticoagulation given GI bleed and peripheral vascular disease -no NSAIDs once discharged home Pain in left shoulder 07/01/2015 08/18/2022 Last Assessment & Plan: He is waiting to hear about the MRI of the shoulder. Hematoma, postoperative 07/07/2014 08/11/19 15 Overview: 07/07/2014 Left arm duplex LEFT SIDE Negative for pseudoaneurysm, deep vein thrombosis and arteriovenous fistula. Brachial artery patent . Hematoma noted in region of incision at mid to distal medial upper arm measuring approximately 5.31 x 1.29 x 3.31cm. 07/08/2014 Hematoma stable, continue fátima wrap at discharge Ulcerative colitis 06/24/2014 11/09/2018 Overview: Patient has UC and is on Azulide, there is apparent resolution of symptoms with medication Last Assessment & Plan: Patient has UC and is on Azulide, there is apparent resolution of symptoms with that. Acute blood loss anemia 01/28/2014 10/13/19 Overview: Transfuse 2 units PRBC intra-op 10/10/19 Transfuse 2 units PRBC post-op Last Assessment & Plan: Assessment: +h/o anemia, last CBC 03/2019 normal H/H, new labs pending Melena 12/15/2013 08/18/2022 Overview: - 12/17/13 EGD normal - 01/10/14 colonoscopy with non-bleeding hemorrhoids and two colonic angiodysplastic lesions in cecum, treated by fulguration - currently Coumadin and ASA held again, INR subtherapeutic on admission - Vital signs and Hgb have been stable, no more bleeding - no BMs today, +constipation Plan: - NPO/IVF - capsule just swallowed 01/16/14 (and 01/13/14?), per patient has not yet passed in his stool - H/H q12, transfuse if Hb <7 - consented for blood products transfusions, T&S - hold AC and asa, to restart once ?GIB resolves given high risk of stent thrombosis, f/u INR - check FOBT, C. diff, follow BMs Last Assessment & Plan: The patient is saying that he had melena for the past 3 days. He is on iron supplements in the past and is not sure if it is the iron or the melena. He is having a stomach ache for a long time. He thinks it is blood because when he wiped he had blood in it. Thrombosis 11/12/2013 02/10/2014 Overview: 11/12/13 s/p lysis catheter placemenst for aortoiliac thrombosis. On heparin and tPA at present. Erythema of groin 10/30/2013 02/10/2014 Overview: Patient recently discharge on oral regimen of bactrim for 2 week course (till 11/20/13) for recurrent groin erythema SUMMARY 10/30/2013 08/18/2022 Overview: Pedro Pablo Sierra is a 63 year old male with PMH significant for PVD, acute ischemic LE (October/2013) s/p CRISPIN stenting on 10/23/13 for aorto-occlusive critical limb ischemia, CAD previous [place], DM, HTN, DLD, COPD, UC/IBD on sulfasalazine who was admitted on 01/27/2014 with [facility]BPR. He underwent colonoscopy yesterday which revealed a 3 mm sessile polyp in the ascending colon, with another preset in the descending colon, nonbleeding internal hemorrhoids and an angiodysplastic lesion in the ascending colon with stigmata of recent bleeding which was fulgurated. Overnight he had a minimal amount of bright red blood on his wipe after an episode of straining on the toilet. Hemoglobin is stable at 8.2 g/dL. Pain, postoperative, acute 10/30/201302/10 Overview: Patient on 300 mg og Neurotoin BID at home Patient started on Pote[place] postoperatively, pain controlled at time of discharge. Urinary retention 10/25/2013 08/18/2022 Overview: Home med: tamsulosin Plan: -Resume Tamsulosin DISPOSITION AND FOLLOW-UP 10/25/20132022 Overview: CM following for d/c needs. PT/OT to evaluate-->recommending home PT 07/08/2014 Discharge with home care today Ischemia of extremity 10/14/2013 02/10/2014 Overview: - admitted to [facility] vascular surgery twice in October 2013, s/p left femoral endarterectomy with patch, US guided access RCFA, L profundaplasty, RUFUS recanalization & stenting, CRISPIN stenting on 10/23/13 for aorto-occlusive critical limb ischemia - S/p 11/12-11/19/13 [facility] Vascular Surgery for aortoiliac thrombosis (BLE pain), underwent lysis of bilateral ileofemoral arteries. Started on anticoagulation with coumadin, also on aspirin 81 daily - chart review shows INR frequently sub-therapeutic on admissions Plan: - Warfarin therapeutic for 24 hours. Stop heparin. - Scheduled for OPD appointment with Dr. Sher on 02/10/2014. - PVR study of the lower limbs unchanged from previous. Vertebral compression fracture 07/05/2013 1 06/23/2019 Spondylosis of lumbar region without myelopathy or radiculopathy 12/18/2012 07/24/2020 Rectal bleeding 11/13/2013 documented as of this encounter (statuses as of 08/27/2022) [facility]04-24-2020 History of Past illness Narrative* Problem Noted Date Resolved Date Hypophosphatemia 10/11/2019 10/13/2019 Overview: Replace prn Temporal arteritis 11/17/2017 11/09/2018 Seizure disorder 07/03/2017 07/10/2017 Acute GI bleeding 02/07/2016 08/18/2022 Overview: Assessment: -black stools present for a few weeks with hx of melena in the past -crampy mid-abdominal pain -Capsule endoscopy 01/15/14 showed 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 Sher regarding preference for anticoagulation given GI bleed and peripheral vascular disease -no NSAIDs once discharged home Pain in left shoulder 07/01/2015 08/18/2022 Last Assessment & Plan: He is waiting to hear about the MRI of the shoulder. Hematoma, postoperative 07/07/2014 08/11/19 15 Overview: 07/07/2014 Left arm duplex LEFT SIDE Negative for pseudoaneurysm, deep vein thrombosis and arteriovenous fistula. Brachial artery patent . Hematoma noted in region of incision at mid to distal medial upper arm measuring approximately 5.31 x 1.29 x 3.31cm. 07/08/2014 Hematoma stable, continue fátima wrap at discharge Ulcerative colitis 06/24/2014 11/09/2018 Overview: Patient has UC and is on Azulide, there is apparent resolution of symptoms with medication Last Assessment & Plan: Patient has UC and is on Azulide, there is apparent resolution of symptoms with that. Acute blood loss anemia 01/28/2014 10/13/19 20 Overview: Transfuse 2 units PRBC intra-op 10/10/19 Transfuse 2 units PRBC post-op Last Assessment & Plan: Assessment: +h/o anemia, last CBC 03/2019 normal H/H, new labs pending Melena 12/15/2013 08/18/2022 Overview: - 12/17/13 EGD normal - 01/10/14 colonoscopy with non-bleeding hemorrhoids and two colonic angiodysplastic lesions in cecum, treated by fulguration - currently Coumadin and ASA held again, INR subtherapeutic on admission - Vital signs and Hgb have been stable, no more bleeding - no BMs today, +constipation Plan: - NPO/IVF - capsule just swallowed 01/16/14 (and 01/13/14?), per patient has not yet passed in his stool - H/H q12, transfuse if Hb <7 - consented for blood products transfusions, T&S - hold AC and asa, to restart once ?GIB resolves given high risk of stent thrombosis, f/u INR - check FOBT, C. diff, follow BMs Last Assessment & Plan: The patient is saying that he had melena for the past 3 days. He is on iron supplements in the past and is not sure if it is the iron or the melena. He is having a stomach ache for a long time. He thinks it is blood because when he wiped he had blood in it. Thrombosis 11/12/2013 02/10/2014 Overview: 11/12/13 s/p lysis catheter placemenst for aortoiliac thrombosis. On heparin and tPA at present. Erythema of groin 10/30/2013 02/10/2014 Overview: Patient recently discharge on oral regimen of bactrim for 2 week course (till 11/20/13) for recurrent groin erythema SUMMARY 10/30/2013 08/18/2022 Overview: Pedro Pablo Sierra is a 63 year old male with PMH significant for PVD, acute ischemic LE (October/2013) s/p CRISPIN stenting on 10/23/13 for aorto-occlusive critical limb ischemia, CAD previous [place], DM, HTN, DLD, COPD, UC/IBD on sulfasalazine who was admitted on 01/27/2014 with BRBPR. He underwent colonoscopy yesterday which revealed a 3 mm sessile polyp in the ascending colon, with another preset in the descending colon, nonbleeding internal hemorrhoids and an angiodysplastic lesion in the ascending colon with stigmata of recent bleeding which was fulgurated. Overnight he had a minimal amount of bright red blood on his wipe after an episode of straining on the toilet. Hemoglobin is stable at 8.2 g/dL. Pain, postoperative, acute 10/30/201302/10 Overview: Patient on 300 mg og Neurotoin BID at home Patient started on Poteau postoperatively, pain controlled at time of discharge. Urinary retention 10/25/2013 08/18/2022 Overview: Home med: tamsulosin Plan: -Resume Tamsulosin DISPOSITION AND FOLLOW-UP 10/25/20132022 Overview: CM following for d/c needs. PT/OT to evaluate-->recommending home PT 07/08/2014 Discharge with home care today Ischemia of extremity 10/14/2013 02/10/2014 Overview: - admitted to [facility] vascular surgery twice in October 2013, s/p left femoral endarterectomy with patch, US guided access RCFA, L profundaplasty, RUFUS recanalization & stenting, CRISPIN stenting on 10/23/13 for aorto-occlusive critical limb ischemia - S/p 11/12-11/19/13 [facility] Vascular Surgery for aortoiliac thrombosis (BLE pain), underwent lysis of bilateral ileofemoral arteries. Started on anticoagulation with coumadin, also on aspirin 81 daily - chart review shows INR frequently sub-therapeutic on admissions Plan: - Warfarin therapeutic for 24 hours. Stop heparin. - Scheduled for OPD appointment with Dr. Sher on 02/10/2014. - PVR study of the lower limbs unchanged from previous. Vertebral compression fracture 07/05/2013 1 06/23/2019 Spondylosis of lumbar region without myelopathy or radiculopathy 12/18/2012 07/24/2020 Rectal bleeding 11/13/2013 documented as of this encounter (statuses as of 08/27/2022) [facility]04-24-2020 History of Past illness Narrative* Problem Noted Date Resolved Date Hypophosphatemia 10/11/2019 10/13/2019 Overview: Replace prn Temporal arteritis 11/17/2017 11/09/2018 Seizure disorder 07/03/2017 07/10/2017 Acute GI bleeding 02/07/2016 08/18/2022 Overview: Assessment: -black stools present for a few weeks with hx of melena in the past -crampy mid-abdominal pain -Capsule endoscopy 01/15/14 showed 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 Sher regarding preference for anticoagulation given GI bleed and peripheral vascular disease -no NSAIDs once discharged home Pain in left shoulder 07/01/2015 08/18/2022 Last Assessment & Plan: He is waiting to hear about the MRI of the shoulder. Hematoma, postoperative 07/07/2014 08/11/19 15 Overview: 07/07/2014 Left arm duplex LEFT SIDE Negative for pseudoaneurysm, deep vein thrombosis and arteriovenous fistula. Brachial artery patent . Hematoma noted in region of incision at mid to distal medial upper arm measuring approximately 5.31 x 1.29 x 3.31cm. 07/08/2014 Hematoma stable, continue fátima wrap at discharge Ulcerative colitis 06/24/2014 11/09/2018 Overview: Patient has UC and is on Azulide, there is apparent resolution of symptoms with medication Last Assessment & Plan: Patient has UC and is on Azulide, there is apparent resolution of symptoms with that. Acute blood loss anemia 01/28/2014 10/13/19 20 Overview: Transfuse 2 units PRBC intra-op 10/10/19 Transfuse 2 units PRBC post-op Last Assessment & Plan: Assessment: +h/o anemia, last CBC 03/2019 normal H/H, new labs pending Melena 12/15/2013 08/18/2022 Overview: - 12/17/13 EGD normal - 01/10/14 colonoscopy with non-bleeding hemorrhoids and two colonic angiodysplastic lesions in cecum, treated by fulguration - currently Coumadin and ASA held again, INR subtherapeutic on admission - Vital signs and Hgb have been stable, no more bleeding - no BMs today, +constipation Plan: - NPO/IVF - capsule just swallowed 01/16/14 (and 01/13/14?), per patient has not yet passed in his stool - H/H q12, transfuse if Hb <7 - consented for blood products transfusions, T&S - hold AC and asa, to restart once ?GIB resolves given high risk of stent thrombosis, f/u INR - check FOBT, C. diff, follow BMs Last Assessment & Plan: The patient is saying that he had melena for the past 3 days. He is on iron supplements in the past and is not sure if it is the iron or the melena. He is having a stomach ache for a long time. He thinks it is blood because when he wiped he had blood in it. Thrombosis 11/12/2013 02/10/2014 Overview: 11/12/13 s/p lysis catheter placemenst for aortoiliac thrombosis. On heparin and tPA at present. Erythema of groin 10/30/2013 02/10/2014 Overview: Patient recently discharge on oral regimen of bactrim for 2 week course (till 11/20/13) for recurrent groin erythema SUMMARY 10/30/2013 08/18/2022 Overview: Pedro Pablo Sierra is a 63 year old male with PMH significant for PVD, acute ischemic LE (October/2013) s/p CRISPIN stenting on 10/23/13 for aorto-occlusive critical limb ischemia, CAD previous [place], DM, HTN, DLD, COPD, UC/IBD on sulfasalazine who was admitted on 01/27/2014 with BRBPR. He underwent colonoscopy yesterday which revealed a 3 mm sessile polyp in the ascending colon, with another preset in the descending colon, nonbleeding internal hemorrhoids and an angiodysplastic lesion in the ascending colon with stigmata of recent bleeding which was fulgurated. Overnight he had a minimal amount of bright red blood on his wipe after an episode of straining on the toilet. Hemoglobin is stable at 8.2 g/dL. Pain, postoperative, acute 10/30/201302/10 Overview: Patient on 300 mg og Neurotoin BID at home Patient started on Poteau postoperatively, pain controlled at time of discharge. Urinary retention 10/25/2013 08/18/2022 Overview: Home med: tamsulosin Plan: -Resume Tamsulosin DISPOSITION AND FOLLOW-UP 10/25/20132022 Overview: CM following for d/c needs. PT/OT to evaluate-->recommending home PT 07/08/2014 Discharge with home care today Ischemia of extremity 10/14/2013 02/10/2014 Overview: - admitted to [facility] vascular surgery twice in October 2013, s/p left femoral endarterectomy with patch, US guided access RCFA, L profundaplasty, RUFUS recanalization & stenting, CRISPIN stenting on 10/23/13 for aorto-occlusive critical limb ischemia - S/p 11/12-11/19/13 [facility] Vascular Surgery for aortoiliac thrombosis (BLE pain), underwent lysis of bilateral ileofemoral arteries. Started on anticoagulation with coumadin, also on aspirin 81 daily - chart review shows INR frequently sub-therapeutic on admissions Plan: - Warfarin therapeutic for 24 hours. Stop heparin. - Scheduled for OPD appointment with Dr. Sher on 02/10/2014. - PVR study of the lower limbs unchanged from previous. Vertebral compression fracture 07/05/2013 1 06/23/2019 Spondylosis of lumbar region without myelopathy or radiculopathy 12/18/2012 07/24/2020 Rectal bleeding 11/13/2013 documented as of this encounter (statuses as of 08/29/2022) [facility]04-24-2020 History of Past illness Narrative* Problem Noted Date Resolved Date Hypophosphatemia 10/11/2019 10/13/2019 Overview: Replace prn Temporal arteritis 11/17/2017 11/09/2018 Seizure disorder 07/03/2017 07/10/2017 Acute GI bleeding 02/07/2016 08/18/2022 Overview: Assessment: -black stools present for a few weeks with hx of melena in the past -crampy mid-abdominal pain -Capsule endoscopy 01/15/14 showed 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 Sher regarding preference for anticoagulation given GI bleed and peripheral vascular disease -no NSAIDs once discharged home Pain in left shoulder 07/01/2015 08/18/2022 Last Assessment & Plan: He is waiting to hear about the MRI of the shoulder. Hematoma, postoperative 07/07/2014 08/11/19 15 Overview: 07/07/2014 Left arm duplex LEFT SIDE Negative for pseudoaneurysm, deep vein thrombosis and arteriovenous fistula. Brachial artery patent . Hematoma noted in region of incision at mid to distal medial upper arm measuring approximately 5.31 x 1.29 x 3.31cm. 07/08/2014 Hematoma stable, continue fátima wrap at discharge Ulcerative colitis 06/24/2014 11/09/2018 Overview: Patient has UC and is on Azulide, there is apparent resolution of symptoms with medication Last Assessment & Plan: Patient has UC and is on Azulide, there is apparent resolution of symptoms with that. Acute blood loss anemia 01/28/2014 10/13/19 Overview: Transfuse 2 units PRBC intra-op 10/10/19 Transfuse 2 units PRBC post-op Last Assessment & Plan: Assessment: +h/o anemia, last CBC 03/2019 normal H/H, new labs pending Melena 12/15/2013 08/18/2022 Overview: - 12/17/13 EGD normal - 01/10/14 colonoscopy with non-bleeding hemorrhoids and two colonic angiodysplastic lesions in cecum, treated by fulguration - currently Coumadin and ASA held again, INR subtherapeutic on admission - Vital signs and Hgb have been stable, no more bleeding - no BMs today, +constipation Plan: - NPO/IVF - capsule just swallowed 01/16/14 (and 01/13/14?), per patient has not yet passed in his stool - H/H q12, transfuse if Hb <7 - consented for blood products transfusions, T&S - hold AC and asa, to restart once ?GIB resolves given high risk of stent thrombosis, f/u INR - check FOBT, C. diff, follow BMs Last Assessment & Plan: The patient is saying that he had melena for the past 3 days. He is on iron supplements in the past and is not sure if it is the iron or the melena. He is having a stomach ache for a long time. He thinks it is blood because when he wiped he had blood in it. Thrombosis 11/12/2013 02/10/2014 Overview: 11/12/13 s/p lysis catheter placemenst for aortoiliac thrombosis. On heparin and tPA at present. Erythema of groin 10/30/2013 02/10/2014 Overview: Patient recently discharge on oral regimen of bactrim for 2 week course (till 11/20/13) for recurrent groin erythema SUMMARY 10/30/2013 08/18/2022 Overview: Pedro Pablo Sierra is a 63 year old male with PMH significant for PVD, acute ischemic LE (October/2013) s/p CRISPIN stenting on 10/23/13 for aorto-occlusive critical limb ischemia, CAD previous [place], DM, HTN, DLD, COPD, UC/IBD on sulfasalazine who was admitted on 01/27/2014 with BRBPR. He underwent colonoscopy yesterday which revealed a 3 mm sessile polyp in the ascending colon, with another preset in the descending colon, nonbleeding internal hemorrhoids and an angiodysplastic lesion in the ascending colon with stigmata of recent bleeding which was fulgurated. Overnight he had a minimal amount of bright red blood on his wipe after an episode of straining on the toilet. Hemoglobin is stable at 8.2 g/dL. Pain, postoperative, acute 10/30/201302/10 Overview: Patient on 300 mg og Neurotoin BID at home Patient started on Pote[place] postoperatively, pain controlled at time of discharge. Urinary retention 10/25/2013 08/18/2022 Overview: Home med: tamsulosin Plan: -Resume Tamsulosin DISPOSITION AND FOLLOW-UP 10/25/20132022 Overview: CM following for d/c needs. PT/OT to evaluate-->recommending home PT 07/08/2014 Discharge with home care today Ischemia of extremity 10/14/2013 02/10/2014 Overview: - admitted to [facility] vascular surgery twice in October 2013, s/p left femoral endarterectomy with patch, US guided access RCFA, L profundaplasty, RUFUS recanalization & stenting, CRISPIN stenting on 10/23/13 for aorto-occlusive critical limb ischemia - S/p 11/12-11/19/13 [facility] Vascular Surgery for aortoiliac thrombosis (BLE pain), underwent lysis of bilateral ileofemoral arteries. Started on anticoagulation with coumadin, also on aspirin 81 daily - chart review shows INR frequently sub-therapeutic on admissions Plan: - Warfarin therapeutic for 24 hours. Stop heparin. - Scheduled for OPD appointment with Dr. Sher on 02/10/2014. - PVR study of the lower limbs unchanged from previous. Vertebral compression fracture 07/05/2013 1 06/23/2019 Spondylosis of lumbar region without myelopathy or radiculopathy 12/18/2012 07/24/2020 Rectal bleeding 11/13/2013 documented as of this encounter (statuses as of 09/02/2022) [facility]04-24-2020 History of Past illness Narrative* Problem Noted Date Resolved Date Hypophosphatemia 10/11/2019 10/13/2019 Overview: Replace prn Temporal arteritis 11/17/2017 11/09/2018 Seizure disorder 07/03/2017 07/10/2017 Acute GI bleeding 02/07/2016 08/18/2022 Overview: Assessment: -black stools present for a few weeks with hx of melena in the past -crampy mid-abdominal pain -Capsule endoscopy 01/15/14 showed 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 Sher regarding preference for anticoagulation given GI bleed and peripheral vascular disease -no NSAIDs once discharged home Pain in left shoulder 07/01/2015 08/18/2022 Last Assessment & Plan: He is waiting to hear about the MRI of the shoulder. Hematoma, postoperative 07/07/2014 08/11/19 15 Overview: 07/07/2014 Left arm duplex LEFT SIDE Negative for pseudoaneurysm, deep vein thrombosis and arteriovenous fistula. Brachial artery patent . Hematoma noted in region of incision at mid to distal medial upper arm measuring approximately 5.31 x 1.29 x 3.31cm. 07/08/2014 Hematoma stable, continue fátima wrap at discharge Ulcerative colitis 06/24/2014 11/09/2018 Overview: Patient has UC and is on Azulide, there is apparent resolution of symptoms with medication Last Assessment & Plan: Patient has UC and is on Azulide, there is apparent resolution of symptoms with that. Acute blood loss anemia 01/28/2014 10/13/19 20 Overview: Transfuse 2 units PRBC intra-op 10/10/19 Transfuse 2 units PRBC post-op Last Assessment & Plan: Assessment: +h/o anemia, last CBC 03/2019 normal H/H, new labs pending Melena 12/15/2013 08/18/2022 Overview: - 12/17/13 EGD normal - 01/10/14 colonoscopy with non-bleeding hemorrhoids and two colonic angiodysplastic lesions in cecum, treated by fulguration - currently Coumadin and ASA held again, INR subtherapeutic on admission - Vital signs and Hgb have been stable, no more bleeding - no BMs today, +constipation Plan: - NPO/IVF - capsule just swallowed 01/16/14 (and 01/13/14?), per patient has not yet passed in his stool - H/H q12, transfuse if Hb <7 - consented for blood products transfusions, T&S - hold AC and asa, to restart once ?GIB resolves given high risk of stent thrombosis, f/u INR - check FOBT, C. diff, follow BMs Last Assessment & Plan: The patient is saying that he had melena for the past 3 days. He is on iron supplements in the past and is not sure if it is the iron or the melena. He is having a stomach ache for a long time. He thinks it is blood because when he wiped he had blood in it. Thrombosis 11/12/2013 02/10/2014 Overview: 11/12/13 s/p lysis catheter placemenst for aortoiliac thrombosis. On heparin and tPA at present. Erythema of groin 10/30/2013 02/10/2014 Overview: Patient recently discharge on oral regimen of bactrim for 2 week course (till 11/20/13) for recurrent groin erythema SUMMARY 10/30/2013 08/18/2022 Overview: Pedro Pablo Sierra is a 63 year old male with PMH significant for PVD, acute ischemic LE (October/2013) s/p CRISPIN stenting on 10/23/13 for aorto-occlusive critical limb ischemia, CAD previous [place], DM, HTN, DLD, COPD, UC/IBD on sulfasalazine who was admitted on 01/27/2014 with BRBPR. He underwent colonoscopy yesterday which revealed a 3 mm sessile polyp in the ascending colon, with another preset in the descending colon, nonbleeding internal hemorrhoids and an angiodysplastic lesion in the ascending colon with stigmata of recent bleeding which was fulgurated. Overnight he had a minimal amount of bright red blood on his wipe after an episode of straining on the toilet. Hemoglobin is stable at 8.2 g/dL. Pain, postoperative, acute 10/30/201302/10 Overview: Patient on 300 mg og Neurotoin BID at home Patient started on P[place] postoperatively, pain controlled at time of discharge. Urinary retention 10/25/2013 08/18/2022 Overview: Home med: tamsulosin Plan: -Resume Tamsulosin DISPOSITION AND FOLLOW-UP 10/25/20132022 Overview: CM following for d/c needs. PT/OT to evaluate-->recommending home PT 07/08/2014 Discharge with home care today Ischemia of extremity 10/14/2013 02/10/2014 Overview: - admitted to [facility] vascular surgery twice in October 2013, s/p left femoral endarterectomy with patch, US guided access RCFA, L profundaplasty, RUFUS recanalization & stenting, CRISPIN stenting on 10/23/13 for aorto-occlusive critical limb ischemia - S/p 11/12-11/19/13 [facility] Vascular Surgery for aortoiliac thrombosis (BLE pain), underwent lysis of bilateral ileofemoral arteries. Started on anticoagulation with coumadin, also on aspirin 81 daily - chart review shows INR frequently sub-therapeutic on admissions Plan: - Warfarin therapeutic for 24 hours. Stop heparin. - Scheduled for OPD appointment with Dr. Sher on 02/10/2014. - PVR study of the lower limbs unchanged from previous. Vertebral compression fracture 07/05/2013 1 06/23/2019 Spondylosis of lumbar region without myelopathy or radiculopathy 12/18/2012 07/24/2020 Rectal bleeding 11/13/2013 documented as of this encounter (statuses as of 09/07/2022) [facility]04-24-2020 History of Past illness Narrative* Problem Noted Date Resolved Date Hypophosphatemia 10/11/2019 10/13/2019 Overview: Replace prn Temporal arteritis 11/17/2017 11/09/2018 Seizure disorder 07/03/2017 07/10/2017 Acute GI bleeding 02/07/2016 08/18/2022 Overview: Assessment: -black stools present for a few weeks with hx of melena in the past -crampy mid-abdominal pain -Capsule endoscopy 01/15/14 showed 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 Sher regarding preference for anticoagulation given GI bleed and peripheral vascular disease -no NSAIDs once discharged home Pain in left shoulder 07/01/2015 08/18/2022 Last Assessment & Plan: He is waiting to hear about the MRI of the shoulder. Hematoma, postoperative 07/07/2014 08/11/19 15 Overview: 07/07/2014 Left arm duplex LEFT SIDE Negative for pseudoaneurysm, deep vein thrombosis and arteriovenous fistula. Brachial artery patent . Hematoma noted in region of incision at mid to distal medial upper arm measuring approximately 5.31 x 1.29 x 3.31cm. 07/08/2014 Hematoma stable, continue fátima wrap at discharge Ulcerative colitis 06/24/2014 11/09/2018 Overview: Patient has UC and is on Azulide, there is apparent resolution of symptoms with medication Last Assessment & Plan: Patient has UC and is on Azulide, there is apparent resolution of symptoms with that. Acute blood loss anemia 01/28/2014 10/13/19 20 Overview: Transfuse 2 units PRBC intra-op 10/10/19 Transfuse 2 units PRBC post-op Last Assessment & Plan: Assessment: +h/o anemia, last CBC 03/2019 normal H/H, new labs pending Melena 12/15/2013 08/18/2022 Overview: - 12/17/13 EGD normal - 7/25/14 colonoscopy with non-bleeding hemorrhoids and two colonic angiodysplastic lesions in cecum, treated by fulguration - currently Coumadin and ASA held again, INR subtherapeutic on admission - Vital signs and Hgb have been stable, no more bleeding - no BMs today, +constipation Plan: - NPO/IVF - capsule just swallowed 01/16/14 (and 01/13/14?), per patient has not yet passed in his stool - H/H q12, transfuse if Hb <7 - consented for blood products transfusions, T&S - hold AC and asa, to restart once ?GIB resolves given high risk of stent thrombosis, f/u INR - check FOBT, C. diff, follow BMs Last Assessment & Plan: The patient is saying that he had melena for the past 3 days. He is on iron supplements in the past and is not sure if it is the iron or the melena. He is having a stomach ache for a long time. He thinks it is blood because when he wiped he had blood in it. Thrombosis 11/12/2013 02/10/2014 Overview: 11/12/13 s/p lysis catheter placemenst for aortoiliac thrombosis. On heparin and tPA at present. Erythema of groin 10/30/2013 02/10/2014 Overview: Patient recently discharge on oral regimen of bactrim for 2 week course (till 11/20/13) for recurrent groin erythema SUMMARY 10/30/2013 08/18/2022 Overview: Pedro Pablo Sierra is a 63 year old male with PMH significant for PVD, acute ischemic LE (October/2013) s/p CRISPIN stenting on 10/23/13 for aorto-occlusive critical limb ischemia, CAD previous [place], DM, HTN, DLD, COPD, UC/IBD on sulfasalazine who was admitted on 01/27/2014 with BRBPR. He underwent colonoscopy yesterday which revealed a 3 mm sessile polyp in the ascending colon, with another preset in the descending colon, nonbleeding internal hemorrhoids and an angiodysplastic lesion in the ascending colon with stigmata of recent bleeding which was fulgurated. Overnight he had a minimal amount of bright red blood on his wipe after an episode of straining on the toilet. Hemoglobin is stable at 8.2 g/dL. Pain, postoperative, acute 10/30/201302/10 Overview: Patient on 300 mg og Neurotoin BID at home Patient started on Poteau postoperatively, pain controlled at time of discharge. Urinary retention 10/25/2013 08/18/2022 Overview: Home med: tamsulosin Plan: -Resume Tamsulosin DISPOSITION AND FOLLOW-UP 10/25/20132022 Overview: CM following for d/c needs. PT/OT to evaluate-->recommending home PT 07/08/2014 Discharge with home care today Ischemia of extremity 10/14/2013 02/10/2014 Overview: - admitted to [facility] vascular surgery twice in October 2013, s/p left femoral endarterectomy with patch, US guided access RCFA, L profundaplasty, RUFUS recanalization & stenting, CRISPIN stenting on 10/23/13 for aorto-occlusive critical limb ischemia - S/p 11/12-11/19/13 [facility] Vascular Surgery for aortoiliac thrombosis (BLE pain), underwent lysis of bilateral ileofemoral arteries. Started on anticoagulation with coumadin, also on aspirin 81 daily - chart review shows INR frequently sub-therapeutic on admissions Plan: - Warfarin therapeutic for 24 hours. Stop heparin. - Scheduled for OPD appointment with Dr. Sher on 02/10/2014. - PVR study of the lower limbs unchanged from previous. Vertebral compression fracture 07/05/2013 1 06/23/2019 Spondylosis of lumbar region without myelopathy or radiculopathy 12/18/2012 07/24/2020 Rectal bleeding 11/13/2013 documented as of this encounter (statuses as of 10/01/2022) [facility]04-24-2020 History of Past illness Narrative* Problem Noted Date Diagnosed Date Resolved Date Hypophosphatemia 10/11/2019 10/13/2019 Overview: Replace prn Temporal arteritis 11/17/2017 9 Seizure disorder 07/03/2017 07/10/2017 Acute GI bleeding 02/07/2016 08/18/2022 Overview: Assessment: -black stools present for a few weeks with hx of melena in the past -crampy mid-abdominal pain -Capsule endoscopy 01/15/14 showed 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 Sher regarding preference for anticoagulation given GI bleed and peripheral vascular disease -no NSAIDs once discharged home Pain in left shoulder 07/01/20152022 Last Assessment & Plan: He is waiting to hear about the MRI of the shoulder. Hematoma, postoperative 07/07/201407/21 Overview: 07/07/2014 Left arm duplex LEFT SIDE Negative for pseudoaneurysm, deep vein thrombosis and arteriovenous fistula. Brachial artery patent . Hematoma noted in region of incision at mid to distal medial upper arm measuring approximately 5.31 x 1.29 x 3.31cm. 07/08/2014 Hematoma stable, continue fátima wrap at discharge Ulcerative colitis 06/24/2014 9 Overview: Patient has UC and is on Azulide, there is apparent resolution of symptoms with medication Last Assessment & Plan: Patient has UC and is on Azulide, there is apparent resolution of symptoms with that. Acute blood loss anemia 01/28/201409/18 Overview: Transfuse 2 units PRBC intra-op 10/10/19 Transfuse 2 units PRBC post-op Last Assessment & Plan: Assessment: +h/o anemia, last CBC 03/2019 normal H/H, new labs pending Melena 12/15/2013 08/18/2022 Overview: - 12/17/13 EGD normal - 01/10/14 colonoscopy with non-bleeding hemorrhoids and two colonic angiodysplastic lesions in cecum, treated by fulguration - currently Coumadin and ASA held again, INR subtherapeutic on admission - Vital signs and Hgb have been stable, no more bleeding - no BMs today, +constipation Plan: - NPO/IVF - capsule just swallowed 01/16/14 (and 01/13/14?), per patient has not yet passed in his stool - H/H q12, transfuse if Hb <7 - consented for blood products transfusions, T&S - hold AC and asa, to restart once ?GIB resolves given high risk of stent thrombosis, f/u INR - check FOBT, C. diff, follow BMs Last Assessment & Plan: The patient is saying that he had melena for the past 3 days. He is on iron supplements in the past and is not sure if it is the iron or the melena. He is having a stomach ache for a long time. He thinks it is blood because when he wiped he had blood in it. Thrombosis 11/12/2013 02/10/2014 Overview: 11/12/13 s/p lysis catheter placemenst for aortoiliac thrombosis. On heparin and tPA at present. Erythema of groin 10/30/2013 02/10/2014 Overview: Patient recently discharge on oral regimen of bactrim for 2 week course (till 11/20/13) for recurrent groin erythema SUMMARY 10/30/2013 08/18/2022 Overview: Pedro Pablo Sierra is a 63 year old male with PMH significant for PVD, acute ischemic LE (October/2013) s/p CRISPIN stenting on 10/23/13 for aorto-occlusive critical limb ischemia, CAD previous [place], DM, HTN, DLD, COPD, UC/IBD on sulfasalazine who was admitted on 01/27/2014 with BRBPR. He underwent colonoscopy yesterday which revealed a 3 mm sessile polyp in the ascending colon, with another preset in the descending colon, nonbleeding internal hemorrhoids and an angiodysplastic lesion in the ascending colon with stigmata of recent bleeding which was fulgurated. Overnight he had a minimal amount of bright red blood on his wipe after an episode of straining on the toilet. Hemoglobin is stable at 8.2 g/dL. Pain, postoperative, acute 10/30/2013 0 02/10/2014 Overview: Patient on 300 mg og Neurotoin BID at home Patient started on Poteau postoperatively, pain controlled at time of discharge. Urinary retention 10/25/2013 08/18/2022 Overview: Home med: tamsulosin Plan: -Resume Tamsulosin DISPOSITION AND FOLLOW-UP 10/25/2013 Overview: CM following for d/c needs. PT/OT to evaluate-->recommending home PT 07/08/2014 Discharge with home care today Ischemia of extremity 10/14/20132013 Overview: - admitted to [facility] surgery twice in October 2013, s/p left femoral endarterectomy with patch, US guided access RCFA, L profundaplasty, RUFUS recanalization & stenting, CRISPIN stenting on 10/23/13 for aorto-occlusive critical limb ischemia - S/p 11/12-11/19/13 [facility] Vascular Surgery for aortoiliac thrombosis (BLE pain), underwent lysis of bilateral ileofemoral arteries. Started on anticoagulation with coumadin, also on aspirin 81 daily - chart review shows INR frequently sub-therapeutic on admissions Plan: - Warfarin therapeutic for 24 hours. Stop heparin. - Scheduled for OPD appointment with Dr. Sher on 02/10/2014. - PVR study of the lower limbs unchanged from previous. Vertebral compression fracture 07/05/2013 04/23/2020 Spondylosis of lumbar region without myelopathy or radiculopathy 12/18/2012 07/24/2020 Rectal bleeding 11/13/2013 documented as of this encounter (statuses as of 12/27/2022) [facility]04-24-2020 History of Past illness Narrative* Problem Noted Date Diagnosed Date Resolved Date Hypophosphatemia 10/11/2019 10/13/2019 Overview: Replace prn Temporal arteritis 11/17/2017 9 Seizure disorder 07/03/2017 07/10/2017 Acute GI bleeding 02/07/2016 08/18/2022 Overview: Assessment: -black stools present for a few weeks with hx of melena in the past -crampy mid-abdominal pain -Capsule endoscopy 01/15/14 showed 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 Sher regarding preference for anticoagulation given GI bleed and peripheral vascular disease -no NSAIDs once discharged home Pain in left shoulder 07/01/20152022 Last Assessment & Plan: He is waiting to hear about the MRI of the shoulder. Hematoma, postoperative 07/07/201407/21 Overview: 07/07/2014 Left arm duplex LEFT SIDE Negative for pseudoaneurysm, deep vein thrombosis and arteriovenous fistula. Brachial artery patent . Hematoma noted in region of incision at mid to distal medial upper arm measuring approximately 5.31 x 1.29 x 3.31cm. 07/08/2014 Hematoma stable, continue fátima wrap at discharge Ulcerative colitis 06/24/2014 9 Overview: Patient has UC and is on Azulide, there is apparent resolution of symptoms with medication Last Assessment & Plan: Patient has UC and is on Azulide, there is apparent resolution of symptoms with that. Acute blood loss anemia 01/28/2014/11/2019 Overview: Transfuse 2 units PRBC intra-op 10/10/19 Transfuse 2 units PRBC post-op Last Assessment & Plan: Assessment: +h/o anemia, last CBC 03/2019 normal H/H, new labs pending Melena 12/15/2013 08/18/2022 Overview: - 12/17/13 EGD normal - 01/10/14 colonoscopy with non-bleeding hemorrhoids and two colonic angiodysplastic lesions in cecum, treated by fulguration - currently Coumadin and ASA held again, INR subtherapeutic on admission - Vital signs and Hgb have been stable, no more bleeding - no BMs today, +constipation Plan: - NPO/IVF - capsule just swallowed 01/16/14 (and 01/13/14?), per patient has not yet passed in his stool - H/H q12, transfuse if Hb <7 - consented for blood products transfusions, T&S - hold AC and asa, to restart once ?GIB resolves given high risk of stent thrombosis, f/u INR - check FOBT, C. diff, follow BMs Last Assessment & Plan: The patient is saying that he had melena for the past 3 days. He is on iron supplements in the past and is not sure if it is the iron or the melena. He is having a stomach ache for a long time. He thinks it is blood because when he wiped he had blood in it. Thrombosis 11/12/2013 02/10/2014 Overview: 11/12/13 s/p lysis catheter placemenst for aortoiliac thrombosis. On heparin and tPA at present. Erythema of groin 10/30/2013 02/10/2014 Overview: Patient recently discharge on oral regimen of bactrim for 2 week course (till 11/20/13) for recurrent groin erythema SUMMARY 10/30/2013 08/18/2022 Overview: Pedro Pablo Sierra is a 63 year old male with PMH significant for PVD, acute ischemic LE (October/2013) s/p CRISPIN stenting on 10/23/13 for aorto-occlusive critical limb ischemia, CAD previous [place], DM, HTN, DLD, COPD, UC/IBD on sulfasalazine who was admitted on 01/27/2014 with BRBPR. He underwent colonoscopy yesterday which revealed a 3 mm sessile polyp in the ascending colon, with another preset in the descending colon, nonbleeding internal hemorrhoids and an angiodysplastic lesion in the ascending colon with stigmata of recent bleeding which was fulgurated. Overnight he had a minimal amount of bright red blood on his wipe after an episode of straining on the toilet. Hemoglobin is stable at 8.2 g/dL. Pain, postoperative, acute 10/30/2013 0 02/10/2014 Overview: Patient on 300 mg og Neurotoin BID at home Patient started on Poteau postoperatively, pain controlled at time of discharge. Urinary retention 10/25/2013 08/18/2022 Overview: Home med: tamsulosin Plan: -Resume Tamsulosin DISPOSITION AND FOLLOW-UP 10/25/2013 Overview: CM following for d/c needs. PT/OT to evaluate-->recommending home PT 07/08/2014 Discharge with home care today Ischemia of extremity 10/14/20132013 Overview: - admitted to [facility] vascular surgery twice in October 2013, s/p left femoral endarterectomy with patch, US guided access RCFA, L profundaplasty, RUFUS recanalization & stenting, CRISPIN stenting on 10/23/13 for aorto-occlusive critical limb ischemia - S/p 11/12-11/19/13 [facility] Vascular Surgery for aortoiliac thrombosis (BLE pain), underwent lysis of bilateral ileofemoral arteries. Started on anticoagulation with coumadin, also on aspirin 81 daily - chart review shows INR frequently sub-therapeutic on admissions Plan: - Warfarin therapeutic for 24 hours. Stop heparin. - Scheduled for OPD appointment with Dr. Sher on 02/10/2014. - PVR study of the lower limbs unchanged from previous. Vertebral compression fracture 07/05/2013 04/23/2020 Spondylosis of lumbar region without myelopathy or radiculopathy 12/18/2012 07/24/2020 Rectal bleeding 11/13/2013 documented as of this encounter (statuses as of 12/27/2022) [facility]04-24-2020 History of Past illness Narrative* Problem Noted Date Diagnosed Date Resolved Date Hypophosphatemia 10/11/2019 10/13/2019 Overview: Replace prn Temporal arteritis 11/17/2017 9 Seizure disorder 07/03/2017 07/10/2017 Acute GI bleeding 02/07/2016 08/18/2022 Overview: Assessment: -black stools present for a few weeks with hx of melena in the past -crampy mid-abdominal pain -Capsule endoscopy 01/15/14 showed 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 Sher regarding preference for anticoagulation given GI bleed and peripheral vascular disease -no NSAIDs once discharged home Pain in left shoulder 07/01/20152022 Last Assessment & Plan: He is waiting to hear about the MRI of the shoulder. Hematoma, postoperative 07/07/201407/21 Overview: 07/07/2014 Left arm duplex LEFT SIDE Negative for pseudoaneurysm, deep vein thrombosis and arteriovenous fistula. Brachial artery patent . Hematoma noted in region of incision at mid to distal medial upper arm measuring approximately 5.31 x 1.29 x 3.31cm. 07/08/2014 Hematoma stable, continue fátima wrap at discharge Ulcerative colitis 06/24/2014 9 Overview: Patient has UC and is on Azulide, there is apparent resolution of symptoms with medication Last Assessment & Plan: Patient has UC and is on Azulide, there is apparent resolution of symptoms with that. Acute blood loss anemia 01/28/201409/18 Overview: Transfuse 2 units PRBC intra-op 10/10/19 Transfuse 2 units PRBC post-op Last Assessment & Plan: Assessment: +h/o anemia, last CBC 03/2019 normal H/H, new labs pending Melena 12/15/2013 08/18/2022 Overview: - 12/17/13 EGD normal - 01/10/14 colonoscopy with non-bleeding hemorrhoids and two colonic angiodysplastic lesions in cecum, treated by fulguration - currently Coumadin and ASA held again, INR subtherapeutic on admission - Vital signs and Hgb have been stable, no more bleeding - no BMs today, +constipation Plan: - NPO/IVF - capsule just swallowed 01/16/14 (and 01/13/14?), per patient has not yet passed in his stool - H/H q12, transfuse if Hb <7 - consented for blood products transfusions, T&S - hold AC and asa, to restart once ?GIB resolves given high risk of stent thrombosis, f/u INR - check FOBT, C. diff, follow BMs Last Assessment & Plan: The patient is saying that he had melena for the past 3 days. He is on iron supplements in the past and is not sure if it is the iron or the melena. He is having a stomach ache for a long time. He thinks it is blood because when he wiped he had blood in it. Thrombosis 11/12/2013 02/10/2014 Overview: 11/12/13 s/p lysis catheter placemenst for aortoiliac thrombosis. On heparin and tPA at present. Erythema of groin 10/30/2013 02/10/2014 Overview: Patient recently discharge on oral regimen of bactrim for 2 week course (till 11/20/13) for recurrent groin erythema SUMMARY 10/30/2013 08/18/2022 Overview: Pedro Pablo Sierra is a 63 year old male with PMH significant for PVD, acute ischemic LE (October/2013) s/p CRISPIN stenting on 10/23/13 for aorto-occlusive critical limb ischemia, CAD previous [place], DM, HTN, DLD, COPD, UC/IBD on sulfasalazine who was admitted on 01/27/2014 with BRBPR. He underwent colonoscopy yesterday which revealed a 3 mm sessile polyp in the ascending colon, with another preset in the descending colon, nonbleeding internal hemorrhoids and an angiodysplastic lesion in the ascending colon with stigmata of recent bleeding which was fulgurated. Overnight he had a minimal amount of bright red blood on his wipe after an episode of straining on the toilet. Hemoglobin is stable at 8.2 g/dL. Pain, postoperative, acute 10/30/2013 0 02/10/2014 Overview: Patient on 300 mg og Neurotoin BID at home Patient started on Poteau postoperatively, pain controlled at time of discharge. Urinary retention 10/25/2013 08/18/2022 Overview: Home med: tamsulosin Plan: -Resume Tamsulosin DISPOSITION AND FOLLOW-UP 10/25/2013 Overview: CM following for d/c needs. PT/OT to evaluate-->recommending home PT 07/08/2014 Discharge with home care today Ischemia of extremity 10/14/20132013 Overview: - admitted to [facility] vascular surgery twice in October 2013, s/p left femoral endarterectomy with patch, US guided access RCFA, L profundaplasty, RUFUS recanalization & stenting, CRISPIN stenting on 10/23/13 for aorto-occlusive critical limb ischemia - S/p 11/12-11/19/13 [facility] Vascular Surgery for aortoiliac thrombosis (BLE pain), underwent lysis of bilateral ileofemoral arteries. Started on anticoagulation with coumadin, also on aspirin 81 daily - chart review shows INR frequently sub-therapeutic on admissions Plan: - Warfarin therapeutic for 24 hours. Stop heparin. - Scheduled for OPD appointment with Dr. Sher on 02/10/2014. - PVR study of the lower limbs unchanged from previous. Vertebral compression fracture 07/05/2013 04/23/2020 Spondylosis of lumbar region without myelopathy or radiculopathy 12/18/2012 07/24/2020 Rectal bleeding 11/13/2013 documented as of this encounter (statuses as of 01/28/2023) [facility]04-[facility]-2020 History of Past illness Narrative* Problem Noted Date Diagnosed Date Resolved Date Hypophosphatemia 10/11/2019 10/13/2019 Overview: Replace prn Temporal arteritis 11/17/2017 9 Seizure disorder 07/03/2017 07/10/2017 Acute GI bleeding 02/07/2016 08/18/2022 Overview: Assessment: -black stools present for a few weeks with hx of melena in the past -crampy mid-abdominal pain -Capsule endoscopy 01/15/14 showed 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 Sher regarding preference for anticoagulation given GI bleed and peripheral vascular disease -no NSAIDs once discharged home Pain in left shoulder 07/01/20152022 Last Assessment & Plan: He is waiting to hear about the MRI of the shoulder. Hematoma, postoperative 07/07/201407/21 Overview: 07/07/2014 Left arm duplex LEFT SIDE Negative for pseudoaneurysm, deep vein thrombosis and arteriovenous fistula. Brachial artery patent . Hematoma noted in region of incision at mid to distal medial upper arm measuring approximately 5.31 x 1.29 x 3.31cm. 07/08/2014 Hematoma stable, continue fátima wrap at discharge Ulcerative colitis 06/24/2014 9 Overview: Patient has UC and is on Azulide, there is apparent resolution of symptoms with medication Last Assessment & Plan: Patient has UC and is on Azulide, there is apparent resolution of symptoms with that. Acute blood loss anemia 01/28/201409/18 Overview: Transfuse 2 units PRBC intra-op 10/10/19 Transfuse 2 units PRBC post-op Last Assessment & Plan: Assessment: +h/o anemia, last CBC 03/2019 normal H/H, new labs pending Melena 12/15/2013 08/18/2022 Overview: - 12/17/13 EGD normal - 01/10/14 colonoscopy with non-bleeding hemorrhoids and two colonic angiodysplastic lesions in cecum, treated by fulguration - currently Coumadin and ASA held again, INR subtherapeutic on admission - Vital signs and Hgb have been stable, no more bleeding - no BMs today, +constipation Plan: - NPO/IVF - capsule just swallowed 01/16/14 (and 01/13/14?), per patient has not yet passed in his stool - H/H q12, transfuse if Hb <7 - consented for blood products transfusions, T&S - hold AC and asa, to restart once ?GIB resolves given high risk of stent thrombosis, f/u INR - check FOBT, C. diff, follow BMs Last Assessment & Plan: The patient is saying that he had melena for the past 3 days. He is on iron supplements in the past and is not sure if it is the iron or the melena. He is having a stomach ache for a long time. He thinks it is blood because when he wiped he had blood in it. Thrombosis 11/12/2013 02/10/2014 Overview: 11/12/13 s/p lysis catheter placemenst for aortoiliac thrombosis. On heparin and tPA at present. Erythema of groin 10/30/2013 02/10/2014 Overview: Patient recently discharge on oral regimen of bactrim for 2 week course (till 11/20/13) for recurrent groin erythema SUMMARY 10/30/2013 08/18/2022 Overview: Pedro Pablo Sierra is a 63 year old male with PMH significant for PVD, acute ischemic LE (October/2013) s/p CRISPIN stenting on 10/23/13 for aorto-occlusive critical limb ischemia, CAD previous [place], DM, HTN, DLD, COPD, UC/IBD on sulfasalazine who was admitted on 01/27/2014 with BRBPR. He underwent colonoscopy yesterday which revealed a 3 mm sessile polyp in the ascending colon, with another preset in the descending colon, nonbleeding internal hemorrhoids and an angiodysplastic lesion in the ascending colon with stigmata of recent bleeding which was fulgurated. Overnight he had a minimal amount of bright red blood on his wipe after an episode of straining on the toilet. Hemoglobin is stable at 8.2 g/dL. Pain, postoperative, acute 10/30/2013 0 02/10/2014 Overview: Patient on 300 mg og Neurotoin BID at home Patient started on Poteau postoperatively, pain controlled at time of discharge. Urinary retention 10/25/2013 08/18/2022 Overview: Home med: tamsulosin Plan: -Resume Tamsulosin DISPOSITION AND FOLLOW-UP 10/25/2013 Overview: CM following for d/c needs. PT/OT to evaluate-->recommending home PT 07/08/2014 Discharge with home care today Ischemia of extremity 10/14/20132013 Overview: - admitted to [facility] vascular surgery twice in October 2013, s/p left femoral endarterectomy with patch, US guided access RCFA, L profundaplasty, RUFUS recanalization & stenting, CRISPIN stenting on 10/23/13 for aorto-occlusive critical limb ischemia - S/p 11/12-11/19/13 [facility] for aortoiliac thrombosis (BLE pain), underwent lysis of bilateral ileofemoral arteries. Started on anticoagulation with coumadin, also on aspirin 81 daily - chart review shows INR frequently sub-therapeutic on admissions Plan: - Warfarin therapeutic for 24 hours. Stop heparin. - Scheduled for OPD appointment with Dr. Sher on 02/10/2014. - PVR study of the lower limbs unchanged from previous. Vertebral compression fracture 07/05/2013 04/23/2020 Spondylosis of lumbar region without myelopathy or radiculopathy 12/18/2012 07/24/2020 Rectal bleeding 11/13/2013 documented as of this encounter (statuses as of 03/01/2023) [facility]04-24-2020 History of Past illness Narrative* Problem Noted Date Diagnosed Date Resolved Date Hypophosphatemia 10/11/2019 10/13/2019 Overview: Replace prn Temporal arteritis 11/17/2017 9 Seizure disorder 07/03/2017 07/10/2017 Acute GI bleeding 02/07/2016 08/18/2022 Overview: Assessment: -black stools present for a few weeks with hx of melena in the past -crampy mid-abdominal pain -Capsule endoscopy 01/15/14 showed 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 Sher regarding preference for anticoagulation given GI bleed and peripheral vascular disease -no NSAIDs once discharged home Pain in left shoulder 07/01/20152022 Last Assessment & Plan: He is waiting to hear about the MRI of the shoulder. Hematoma, postoperative 07/07/201407/21 Overview: 07/07/2014 Left arm duplex LEFT SIDE Negative for pseudoaneurysm, deep vein thrombosis and arteriovenous fistula. Brachial artery patent . Hematoma noted in region of incision at mid to distal medial upper arm measuring approximately 5.31 x 1.29 x 3.31cm. 07/08/2014 Hematoma stable, continue fátima wrap at discharge Ulcerative colitis 06/24/2014 9 Overview: Patient has UC and is on Azulide, there is apparent resolution of symptoms with medication Last Assessment & Plan: Patient has UC and is on Azulide, there is apparent resolution of symptoms with that. Acute blood loss anemia 01/28/201409/18 Overview: Transfuse 2 units PRBC intra-op 10/10/19 Transfuse 2 units PRBC post-op Last Assessment & Plan: Assessment: +h/o anemia, last CBC 03/2019 normal H/H, new labs pending Melena 12/15/2013 08/18/2022 Overview: - 12/17/13 EGD normal - 01/10/14 colonoscopy with non-bleeding hemorrhoids and two colonic angiodysplastic lesions in cecum, treated by fulguration - currently Coumadin and ASA held again, INR subtherapeutic on admission - Vital signs and Hgb have been stable, no more bleeding - no BMs today, +constipation Plan: - NPO/IVF - capsule just swallowed 01/16/14 (and 01/13/14?), per patient has not yet passed in his stool - H/H q12, transfuse if Hb <7 - consented for blood products transfusions, T&S - hold AC and asa, to restart once ?GIB resolves given high risk of stent thrombosis, f/u INR - check FOBT, C. diff, follow BMs Last Assessment & Plan: The patient is saying that he had melena for the past 3 days. He is on iron supplements in the past and is not sure if it is the iron or the melena. He is having a stomach ache for a long time. He thinks it is blood because when he wiped he had blood in it. Thrombosis 11/12/2013 02/10/2014 Overview: 11/12/13 s/p lysis catheter placemenst for aortoiliac thrombosis. On heparin and tPA at present. Erythema of groin 10/30/2013 02/10/2014 Overview: Patient recently discharge on oral regimen of bactrim for 2 week course (till 11/20/13) for recurrent groin erythema SUMMARY 10/30/2013 08/18/2022 Overview: Pedro Pablo Sierra is a 63 year old male with PMH significant for PVD, acute ischemic LE (October/2013) s/p CRISPIN stenting on 10/23/13 for aorto-occlusive critical limb ischemia, CAD previous [place], DM, HTN, DLD, COPD, UC/IBD on sulfasalazine who was admitted on 01/27/2014 with BRBPR. He underwent colonoscopy yesterday which revealed a 3 mm sessile polyp in the ascending colon, with another preset in the descending colon, nonbleeding internal hemorrhoids and an angiodysplastic lesion in the ascending colon with stigmata of recent bleeding which was fulgurated. Overnight he had a minimal amount of bright red blood on his wipe after an episode of straining on the toilet. Hemoglobin is stable at 8.2 g/dL. Pain, postoperative, acute 10/30/2013 0 02/10/2014 Overview: Patient on 300 mg og Neurotoin BID at home Patient started on Poteau postoperatively, pain controlled at time of discharge. Urinary retention 10/25/2013 08/18/2022 Overview: Home med: tamsulosin Plan: -Resume Tamsulosin DISPOSITION AND FOLLOW-UP 10/25/2013 Overview: CM following for d/c needs. PT/OT to evaluate-->recommending home PT 07/08/2014 Discharge with home care today Ischemia of extremity 10/14/20132013 Overview: - admitted to [facility] twice in October 2013, s/p left femoral endarterectomy with patch, US guided access RCFA, L profundaplasty, RUFUS recanalization & stenting, CRISPIN stenting on 10/23/13 for aorto-occlusive critical limb ischemia - S/p 11/12-11/19/13 [facility] for aortoiliac thrombosis (BLE pain), underwent lysis of bilateral ileofemoral arteries. Started on anticoagulation with coumadin, also on aspirin 81 daily - chart review shows INR frequently sub-therapeutic on admissions Plan: - Warfarin therapeutic for 24 hours. Stop heparin. - Scheduled for OPD appointment with Dr. Sher on 02/10/2014. - PVR study of the lower limbs unchanged from previous. Vertebral compression fracture 07/05/2013 04/23/2020 Spondylosis of lumbar region without myelopathy or radiculopathy 12/18/2012 07/24/2020 Rectal bleeding 11/13/2013 documented as of this encounter (statuses as of 03/31/2023) [facility]04-24-2020 History of Past illness Narrative* Problem Noted Date Diagnosed Date Resolved Date Hypophosphatemia 10/11/2019 10/13/2019 Overview: Replace prn Temporal arteritis 11/17/2017 9 Seizure disorder 07/03/2017 07/10/2017 Acute GI bleeding 02/07/2016 08/18/2022 Overview: Assessment: -black stools present for a few weeks with hx of melena in the past -crampy mid-abdominal pain -Capsule endoscopy 01/15/14 showed 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 Sher regarding preference for anticoagulation given GI bleed and peripheral vascular disease -no NSAIDs once discharged home Pain in left shoulder 07/01/20152022 Last Assessment & Plan: He is waiting to hear about the MRI of the shoulder. Hematoma, postoperative 07/07/201407/21 Overview: 07/07/2014 Left arm duplex LEFT SIDE Negative for pseudoaneurysm, deep vein thrombosis and arteriovenous fistula. Brachial artery patent . Hematoma noted in region of incision at mid to distal medial upper arm measuring approximately 5.31 x 1.29 x 3.31cm. 07/08/2014 Hematoma stable, continue fátima wrap at discharge Ulcerative colitis 06/24/2014 9 Overview: Patient has UC and is on Azulide, there is apparent resolution of symptoms with medication Last Assessment & Plan: Patient has UC and is on Azulide, there is apparent resolution of symptoms with that. Acute blood loss anemia 01/28/2014/11/2019 Overview: Transfuse 2 units PRBC intra-op 10/10/19 Transfuse 2 units PRBC post-op Last Assessment & Plan: Assessment: +h/o anemia, last CBC 03/2019 normal H/H, new labs pending Melena 12/15/2013 08/18/2022 Overview: - 12/17/13 EGD normal - 01/10/14 colonoscopy with non-bleeding hemorrhoids and two colonic angiodysplastic lesions in cecum, treated by fulguration - currently Coumadin and ASA held again, INR subtherapeutic on admission - Vital signs and Hgb have been stable, no more bleeding - no BMs today, +constipation Plan: - NPO/IVF - capsule just swallowed 01/16/14 (and 01/13/14?), per patient has not yet passed in his stool - H/H q12, transfuse if Hb <7 - consented for blood products transfusions, T&S - hold AC and asa, to restart once ?GIB resolves given high risk of stent thrombosis, f/u INR - check FOBT, C. diff, follow BMs Last Assessment & Plan: The patient is saying that he had melena for the past 3 days. He is on iron supplements in the past and is not sure if it is the iron or the melena. He is having a stomach ache for a long time. He thinks it is blood because when he wiped he had blood in it. Thrombosis 11/12/2013 02/10/2014 Overview: 11/12/13 s/p lysis catheter placemenst for aortoiliac thrombosis. On heparin and tPA at present. Erythema of groin 10/30/2013 02/10/2014 Overview: Patient recently discharge on oral regimen of bactrim for 2 week course (till 11/20/13) for recurrent groin erythema SUMMARY 10/30/2013 08/18/2022 Overview: Pedro Pablo Sierra is a 63 year old male with PMH significant for PVD, acute ischemic LE (October/2013) s/p CRISPIN stenting on 10/23/13 for aorto-occlusive critical limb ischemia, CAD previous [place], DM, HTN, DLD, COPD, UC/IBD on sulfasalazine who was admitted on 01/27/2014 with BRBPR. He underwent colonoscopy yesterday which revealed a 3 mm sessile polyp in the ascending colon, with another preset in the descending colon, nonbleeding internal hemorrhoids and an angiodysplastic lesion in the ascending colon with stigmata of recent bleeding which was fulgurated. Overnight he had a minimal amount of bright red blood on his wipe after an episode of straining on the toilet. Hemoglobin is stable at 8.2 g/dL. Pain, postoperative, acute 10/30/2013 0 02/10/2014 Overview: Patient on 300 mg og Neurotoin BID at home Patient started on Poteau postoperatively, pain controlled at time of discharge. Urinary retention 10/25/2013 08/18/2022 Overview: Home med: tamsulosin Plan: -Resume Tamsulosin DISPOSITION AND FOLLOW-UP 10/25/2013 Overview: CM following for d/c needs. PT/OT to evaluate-->recommending home PT 07/08/2014 Discharge with home care today Ischemia of extremity 10/14/20132013 Overview: - admitted to [facility] vascular surgery twice in October 2013, s/p left femoral endarterectomy with patch, US guided access RCFA, L profundaplasty, RUFUS recanalization & stenting, CRISPIN stenting on 10/23/13 for aorto-occlusive critical limb ischemia - S/p 11/12-11/19/13 [facility] for aortoiliac thrombosis (BLE pain), underwent lysis of bilateral ileofemoral arteries. Started on anticoagulation with coumadin, also on aspirin 81 daily - chart review shows INR frequently sub-therapeutic on admissions Plan: - Warfarin therapeutic for 24 hours. Stop heparin. - Scheduled for OPD appointment with Dr. Sher on 02/10/2014. - PVR study of the lower limbs unchanged from previous. Vertebral compression fracture 07/05/2013 04/23/2020 Spondylosis of lumbar region without myelopathy or radiculopathy 12/18/2012 07/24/2020 Rectal bleeding 11/13/2013 documented as of this encounter (statuses as of 05/22/2023) [facility]04-24-2020 History of Past illness Narrative* Problem Noted Date Diagnosed Date Resolved Date Hypophosphatemia 10/11/2019 10/13/2019 Overview: Replace prn Temporal arteritis 11/17/2017 9 Seizure disorder 07/03/2017 07/10/2017 Acute GI bleeding 02/07/2016 08/18/2022 Overview: Assessment: -black stools present for a few weeks with hx of melena in the past -crampy mid-abdominal pain -Capsule endoscopy 01/15/14 showed 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 Sher regarding preference for anticoagulation given GI bleed and peripheral vascular disease -no NSAIDs once discharged home Pain in left shoulder 07/01/20152022 Last Assessment & Plan: He is waiting to hear about the MRI of the shoulder. Hematoma, postoperative 07/07/201407/21 Overview: 07/07/2014 Left arm duplex LEFT SIDE Negative for pseudoaneurysm, deep vein thrombosis and arteriovenous fistula. Brachial artery patent . Hematoma noted in region of incision at mid to distal medial upper arm measuring approximately 5.31 x 1.29 x 3.31cm. 07/08/2014 Hematoma stable, continue fátima wrap at discharge Ulcerative colitis 06/24/2014 9 Overview: Patient has UC and is on Azulide, there is apparent resolution of symptoms with medication Last Assessment & Plan: Patient has UC and is on Azulide, there is apparent resolution of symptoms with that. Acute blood loss anemia 01/28/201409/18 Overview: Transfuse 2 units PRBC intra-op 10/10/19 Transfuse 2 units PRBC post-op Last Assessment & Plan: Assessment: +h/o anemia, last CBC 03/2019 normal H/H, new labs pending Melena 12/15/2013 08/18/2022 Overview: - 12/17/13 EGD normal - 01/10/14 colonoscopy with non-bleeding hemorrhoids and two colonic angiodysplastic lesions in cecum, treated by fulguration - currently Coumadin and ASA held again, INR subtherapeutic on admission - Vital signs and Hgb have been stable, no more bleeding - no BMs today, +constipation Plan: - NPO/IVF - capsule just swallowed 01/16/14 (and 01/13/14?), per patient has not yet passed in his stool - H/H q12, transfuse if Hb <7 - consented for blood products transfusions, T&S - hold AC and asa, to restart once ?GIB resolves given high risk of stent thrombosis, f/u INR - check FOBT, C. diff, follow BMs Last Assessment & Plan: The patient is saying that he had melena for the past 3 days. He is on iron supplements in the past and is not sure if it is the iron or the melena. He is having a stomach ache for a long time. He thinks it is blood because when he wiped he had blood in it. Thrombosis 11/12/2013 02/10/2014 Overview: 11/12/13 s/p lysis catheter placemenst for aortoiliac thrombosis. On heparin and tPA at present. Erythema of groin 10/30/2013 02/10/2014 Overview: Patient recently discharge on oral regimen of bactrim for 2 week course (till 11/20/13) for recurrent groin erythema SUMMARY 10/30/2013 08/18/2022 Overview: Pedro Pablo Sierra is a 63 year old male with PMH significant for PVD, acute ischemic LE (October/2013) s/p CRISPIN stenting on 10/23/13 for aorto-occlusive critical limb ischemia, CAD previous [place], DM, HTN, DLD, COPD, UC/IBD on sulfasalazine who was admitted on 01/27/2014 with BRBPR. He underwent colonoscopy yesterday which revealed a 3 mm sessile polyp in the ascending colon, with another preset in the descending colon, nonbleeding internal hemorrhoids and an angiodysplastic lesion in the ascending colon with stigmata of recent bleeding which was fulgurated. Overnight he had a minimal amount of bright red blood on his wipe after an episode of straining on the toilet. Hemoglobin is stable at 8.2 g/dL. Pain, postoperative, acute 10/30/2013 0 02/10/2014 Overview: Patient on 300 mg og Neurotoin BID at home Patient started on Pote[place] postoperatively, pain controlled at time of discharge. Urinary retention 10/25/2013 08/18/2022 Overview: Home med: tamsulosin Plan: -Resume Tamsulosin DISPOSITION AND FOLLOW-UP 10/25/2013 03 /07/2022 Overview: CM following for d/c needs. PT/OT to evaluate-->recommending home PT 07/08/2014 Discharge with home care today Ischemia of extremity 10/14/20132013 Overview: - admitted to [facility] vascular surgery twice in October 2013, s/p left femoral endarterectomy with patch, US guided access RCFA, L profundaplasty, RUFUS recanalization & stenting, CRISPIN stenting on 10/23/13 for aorto-occlusive critical limb ischemia - S/p 11/12-11/19/13 [facility] for aortoiliac thrombosis (BLE pain), underwent lysis of bilateral ileofemoral arteries. Started on anticoagulation with coumadin, also on aspirin 81 daily - chart review shows INR frequently sub-therapeutic on admissions Plan: - Warfarin therapeutic for 24 hours. Stop heparin. - Scheduled for OPD appointment with Dr. Sher on 02/10/2014. - PVR study of the lower limbs unchanged from previous. Vertebral compression fracture 07/05/2013 04/23/2020 Spondylosis of lumbar region without myelopathy or radiculopathy 12/18/2012 07/24/2020 Rectal bleeding 11/13/2013 documented as of this encounter (statuses as of 05/31/2023) [facility]04-[facility]-2020 History of Past illness Narrative* Problem Noted Date Diagnosed Date Resolved Date Hypophosphatemia 10/11/2019 10/13/2019 Overview: Replace prn Temporal arteritis 11/17/2017 9 Seizure disorder 07/03/2017 07/10/2017 Acute GI bleeding 02/07/2016 08/18/2022 Overview: Assessment: -black stools present for a few weeks with hx of melena in the past -crampy mid-abdominal pain -Capsule endoscopy 01/15/14 showed 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 Sher regarding preference for anticoagulation given GI bleed and peripheral vascular disease -no NSAIDs once discharged home Pain in left shoulder 07/01/20152022 Last Assessment & Plan: He is waiting to hear about the MRI of the shoulder. Hematoma, postoperative 07/07/201407/21 Overview: 07/07/2014 Left arm duplex LEFT SIDE Negative for pseudoaneurysm, deep vein thrombosis and arteriovenous fistula. Brachial artery patent . Hematoma noted in region of incision at mid to distal medial upper arm measuring approximately 5.31 x 1.29 x 3.31cm. 07/08/2014 Hematoma stable, continue fátima wrap at discharge Ulcerative colitis 06/24/2014 9 Overview: Patient has UC and is on Azulide, there is apparent resolution of symptoms with medication Last Assessment & Plan: Patient has UC and is on Azulide, there is apparent resolution of symptoms with that. Acute blood loss anemia 01/28/201409/18 Overview: Transfuse 2 units PRBC intra-op 10/10/19 Transfuse 2 units PRBC post-op Last Assessment & Plan: Assessment: +h/o anemia, last CBC 03/2019 normal H/H, new labs pending Melena 12/15/2013 08/18/2022 Overview: - 12/17/13 EGD normal - 01/10/14 colonoscopy with non-bleeding hemorrhoids and two colonic angiodysplastic lesions in cecum, treated by fulguration - currently Coumadin and ASA held again, INR subtherapeutic on admission - Vital signs and Hgb have been stable, no more bleeding - no BMs today, +constipation Plan: - NPO/IVF - capsule just swallowed 01/16/14 (and 01/13/14?), per patient has not yet passed in his stool - H/H q12, transfuse if Hb <7 - consented for blood products transfusions, T&S - hold AC and asa, to restart once ?GIB resolves given high risk of stent thrombosis, f/u INR - check FOBT, C. diff, follow BMs Last Assessment & Plan: The patient is saying that he had melena for the past 3 days. He is on iron supplements in the past and is not sure if it is the iron or the melena. He is having a stomach ache for a long time. He thinks it is blood because when he wiped he had blood in it. Thrombosis 11/12/2013 02/10/2014 Overview: 11/12/13 s/p lysis catheter placemenst for aortoiliac thrombosis. On heparin and tPA at present. Erythema of groin 10/30/2013 02/10/2014 Overview: Patient recently discharge on oral regimen of bactrim for 2 week course (till 11/20/13) for recurrent groin erythema SUMMARY 10/30/2013 08/18/2022 Overview: Pedro Pablo Sierra is a 63 year old male with PMH significant for PVD, acute ischemic LE (October/2013) s/p CRISPIN stenting on 10/23/13 for aorto-occlusive critical limb ischemia, CAD previous [place], DM, HTN, DLD, COPD, UC/IBD on sulfasalazine who was admitted on 01/27/2014 with BRBPR. He underwent colonoscopy yesterday which revealed a 3 mm sessile polyp in the ascending colon, with another preset in the descending colon, nonbleeding internal hemorrhoids and an angiodysplastic lesion in the ascending colon with stigmata of recent bleeding which was fulgurated. Overnight he had a minimal amount of bright red blood on his wipe after an episode of straining on the toilet. Hemoglobin is stable at 8.2 g/dL. Pain, postoperative, acute 10/30/2013 0 02/10/2014 Overview: Patient on 300 mg og Neurotoin BID at home Patient started on Pote[place] postoperatively, pain controlled at time of discharge. Urinary retention 10/25/2013 08/18/2022 Overview: Home med: tamsulosin Plan: -Resume Tamsulosin DISPOSITION AND FOLLOW-UP 10/25/2013 Overview: CM following for d/c needs. PT/OT to evaluate-->recommending home PT 07/08/2014 Discharge with home care today Ischemia of extremity 10/14/20132013 Overview: - admitted to [facility] vascular surgery twice in October 2013, s/p left femoral endarterectomy with patch, US guided access RCFA, L profundaplasty, RUFUS recanalization & stenting, CRISPIN stenting on 10/23/13 for aorto-occlusive critical limb ischemia - S/p 11/12-11/19/13 [facility] Vascular Surgery for aortoiliac thrombosis (BLE pain), underwent lysis of bilateral ileofemoral arteries. Started on anticoagulation with coumadin, also on aspirin 81 daily - chart review shows INR frequently sub-therapeutic on admissions Plan: - Warfarin therapeutic for 24 hours. Stop heparin. - Scheduled for OPD appointment with Dr. Sher on 02/10/2014. - PVR study of the lower limbs unchanged from previous. Vertebral compression fracture 07/05/2013 04/23/2020 Spondylosis of lumbar region without myelopathy or radiculopathy 12/18/2012 07/24/2020 Rectal bleeding 11/13/2013 documented as of this encounter (statuses as of 05/31/2023) [facility]04-21-2020 Evaluation note* Diagnosis s/p left femoral endarterectomy/aortoiliac stenting 10/08/2019- Primary Peripheral vascular disease, unspecified PVD (peripheral vascular disease) (HCC) Peripheral vascular disease, unspecified Smoker Tobacco use disorder documented in this [facility] Author Miquel Santiago [facility] April 04, 2023 10:18am Note Date/Time April 04, 2023 1 0:18am [facility] Medical Records Department [address] [place] [address] Counseling Note - Pharmacy 04/04/23 1017 MR#: [id number] Acct: [id number] Name: PEDRO PABLO SIERRA Rep #:[id number] : 1950 72 From: Miquel Santiago PCP: Dr. Daija Morton MD Status:ADM I N Y Location: [place] [address] Pharmacy [facility] Service has performed discharge medication reconciliation and counseling for this patient. The patient's discharge medication list was reviewed for discrepancies and discrepancies were resolved. The patient was counseled on the following discharge medications and changes in medications for homegoing were reviewed. The Reason for Use, instructions for use, and potential side effects were reviewed for all new medications. The patient's questions regarding all of their medications were answered. 1. Ertapenem 1 gram IV daily x 7 days 2. Oxycodone 5 mg PO Q6H PRN pain score 6-10/10 The patient was able to verbally demonstrate an understanding of their dischargemedications. Medications at Discharge Home Medications tamsulosin 0.4 mg capsule 0.4 mg PO QHS bph 01/26/14 finasteride 5 mg tablet 5 mg PO DAILY prostate 11/14/14 atorvastatin 40 mg tablet 40 mg PO QHS Cholesterol 09/23/15 sertraline 50 mg tablet 100 mg PO DAILY mood stabilizer 12/02/15 mirtazapine 15 mg tablet 15 mg PO QHS anti depressant 08/16/19 clopidogrel 75 mg tablet 75 mg PO DAILY blood thinner 10/25/19 carbamazepine 200 mg tablet 200 mg PO Q12H Check with primary doctor 10/26/19 losartan 100 mg tablet 100 mg PO DAILY Blood pressure 08/19/21 pantoprazole 40 mg tablet,delayed release 40 mg PO DAILY GERD 08/19/21 nifedipine 90 mg tablet,extended release 90 mg PO DAILY 11/25/21 acetaminophen 325 mg tablet (Tylenol) 650 mg (2 x 325 mg) PO Q6H PRN PRN Pain 1- 10 Or Fever #0 tabs 11/30/21 alendronate 70 mg tablet 70 mg PO QWEEK #1 TAB 11/30/21 ferrous sulfate 325 mg (65 mg iron) tablet (FeroSul) 325 mg PO BID #1 TAB 11/30/21 nicotine 21 mg/24 hr daily transdermal patch 21 mg transdermal DAILY #0 ea 11/30/21 albuterol sulfate 90 mcg/actuation aerosol inhaler 1 puff inhalation Q8H 03/30/23 metoprolol tartrate 25 mg tablet 25 mg PO DAILY 03/30/23 ertapenem 1 gram solution for injection 1 g IV Q24 7 days #7 ea 04/03/23 oxycodone 5 mg tablet 5 mg PO Q6H PRN PRN Pain Score 6-10 3 days #10 tabs 04/04/23 sennosides 8.6 mg-docusate sodium 50 mg tablet (Stool Softener-Stimulant Laxative) 2 tab PO BID PRN PRN Constipation #0 tabs 04/04/23 04/04/23 1018 <Electronically signed by Miquel pierce> Date _ Miquel Vanessa Signature (if applicable): Date CC: ~ Signed [facility] Work Phone: Discharge summary Author Frankie Galindo [facility] April 04, 2023 10:03am Note Date/Time April 04, 2023 1 0:03am [facility] Medical Records Department [address] [place] [id number] Discharge Summary 04/04/23 1002 MR#: [id number] Acct: [id number] Name: PEDRO PABLO SIERRA Shannan Rep #:[id number] : 1950 72 From: Frankie Galindo MD PCP: Dr. Daija Morton MD Status:ADM I N Location: [place] [address] Providers Date of Admission: 03/30/23 Primary Care Physician: Dr. Daija Morton MD Consultations 04/03/23 08:57 Consult: Infectious Disease Routine Consulting Provider: Elton Moore Reason for Consult: ESBL UTI EMERGENT Consult: No MD Notified: Yes Date Notified: 04/03/23 Time Notified: 08:58 Method of Notification: Text Reason For Visit: ACUTE UTI Diagnosis Discharge Diagnosis (1) UTI (urinary tract infection): Status: Acute Code(s): N39.0 - Urinary tract infection, site not specified Qualifiers: Urinary tract infection type: acute cystitis Hematuria presence: without hematuria Qualified Code(s): N30.00 - Acute cystitis without hematuria (2) Weakness: Status: Acute Code(s): R53.1 - Weakness (3) Chronic respiratory failure with hypoxia: Status: Chronic Code(s): J96.11 - Chronic respiratory failure with hypoxia Plan Patient is a 72-year-old gentleman admitted with multiple falls and progressive generalized weakness diagnosed with acute cystitis admitted to regular nursing floor 1. Acute cystitis ? Urine culture so far positive for E. coli final identification and sensitivities pending ? 04/02/2023; Patient urine cultures came back positive for ESBL positive E. coli patient was on ceftriaxone discontinued placed on meropenem - 04/03/2023; Consulted ID for dc abx -04/04/2023 patient to be discharged with Ertapemen for 7 days 2. Physical deconditioning with multiple falls - Requested for PT OT eval and social security benefits interviewer to assist with discharge planning 3. Chronic hypoxic respiratory failure ? Secondary to COPD. Patient is on baseline home oxygen 2 L at rest 4. Acute hypertensive emergency ? Resolved 5. GERD ? On PPI 6.Tobacco abuse -Counseled; -Nicotine patch prescribed. 7. Paroxysmal A-fib -Metoprolol continued. Not on anticoagulation which I agree with if patient hasmultiple falls. 8. History of CVA -Stable, Plavix and statins continued. 9. BPH -on home tamsulosin and finasteride 10. DVT prophylaxis ? IN Lovenox Time spent in the patient's overall evaluation,decision-making process, review of diagnostic data, adjustment of management, discussion with other providers, nursing nursing and ancillary staff involved in patient's care documentation, 36minutes. Medications at Discharge Home Medications tamsulosin 0.4 mg capsule 0.4 mg PO QHS bph 01/26/14 finasteride 5 mg tablet 5 mg PO DAILY prostate 11/14/14 atorvastatin 40 mg tablet 40 mg PO QHS Cholesterol 09/23/15 sertraline 50 mg tablet 100 mg PO DAILY mood stabilizer 12/02/15 mirtazapine 15 mg tablet 15 mg PO QHS anti depressant 08/16/19 clopidogrel 75 mg tablet 75 mg PO DAILY blood thinner 10/25/19 carbamazepine 200 mg tablet 200 mg PO Q12H Check with primary doctor 10/26/19 losartan 100 mg tablet 100 mg PO DAILY Blood pressure 08/19/21 pantoprazole 40 mg tablet,delayed release 40 mg PO DAILY GERD 08/19/21 nifedipine 90 mg tablet,extended release 90 mg PO DAILY 11/25/21 acetaminophen 325 mg tablet (Tylenol) 650 mg (2 x 325 mg) PO Q6H PRN PRN Pain 1- 10 Or Fever #0 tabs 11/30/21 alendronate 70 mg tablet 70 mg PO QWEEK #1 TAB 11/30/21 ferrous sulfate 325 mg (65 mg iron) tablet (FeroSul) 325 mg PO BID #1 TAB 11/30/21 nicotine 21 mg/24 hr daily transdermal patch 21 mg transdermal DAILY #0 ea 11/30/21 albuterol sulfate 90 mcg/actuation aerosol inhaler 1 puff inhalation Q8H 03/30/23 metoprolol tartrate 25 mg tablet 25 mg PO DAILY 03/30/23 ertapenem 1 gram solution for injection 1 g IV Q24 7 days #7 ea 04/03/23 oxycodone 5 mg tablet 5 mg PO Q6H PRN PRN Pain Score 6-10 3 days #10 tabs 04/04/23 sennosides 8.6 mg-docusate sodium 50 mg tablet (Stool Softener-Stimulant Laxative) 2 tab PO BID PRN PRN Constipation #0 tabs 04/04/23 Hospital Course Summary of Care Provided Minutes Spent on Discharge: 36 Physical Exam Narrative GENERAL: cooperative HEENT: Atraumatic; normocephalic EYES; Anicteric, Normal Conjunctiva NECK; supple, normal thyroid, RESPIRATORY: Diminished to auscultation CARDIOVASCULAR: Regular S1 S2, GI: soft, normoactive bowel sounds, : No Renal angle tenderness; EXTREMITIES: No edema, no clubbing, MUSCULOSKELETAL: no muscle wasting NEURO: Awake; no lateralizing signs. SKIN: No Rash PSYCH; Flat affect Weight / BMI Weight Weight: 63 kg Body Mass Index (BMI) 20.5 ABG / Lab / Microbiology Data 04/04/23 06:05 04/04/23 06:05 Laboratory: Laboratory Results - last 24 hr 04/04/23 06:05: WBC 6.3, RBC 4.82, Hgb 15.1, Hct 46.6, MCV 96.7 H, MCH 31.3, MCHC 32.4, RDW Std Deviation 48.9 H, RDW Coeff of Aly 13.6, Plt Count 379, MPV 9.3, Immature Gran % (Auto) 1.300 H, Neut % (Auto) 64.4, Lymph % (Auto) 23.6, Phelps % (Auto) 6.3, Eos % (Auto) 3.3, Baso % (Auto) 1.1 H, Absolute Neuts (auto) 4.1, Absolute Lymphs (auto) 1.49, Nucleated RBC % 0, Sodium 136, Potassium 3.9, Chloride 103, Carbon Dioxide 29.0, Anion Gap 4 L, BUN 26 H, Creatinine 1.28, Estim Creat Clear Calc 45.80, Est GFR (MDRD) Af Amer 71, Est GFR (MDRD) Non-Af 58 L, BUN/Creatinine Ratio 20.3 H, Glucose 101, Calcium 9.7 Microbiology: Microbiology 03/30/23 17:04 Urine, Clean Catch Urine Culture - Final ESBL Escherichia coli 03/30/23 20:00 Blood Culture (Wb) - Anticubital Right Blood Culture - Preliminary No growth in 48 hours. 03/30/23 20:18 Blood Culture (Wb) - Anticubital Right Blood Culture - Preliminary No growth in 48 hours. D/C Instructions Discharge Diet: No restrictions Discharge Activity: Return to Normal Activity Call your doctor if you observe: Fever of 101 or Higher, Shortness of breath, Fainting spells and Chest pain Meaningful Use Info Meaningful Use Diagnoses (Choose all that apply): None applicable Discharge Plan Admission Admit Date/Time: 03/30/23 19:21 Attending Provider: Frankie Galindo Primary Care Provider: Daija Morton Consulting Providers: Fran Cartwright; Celia Toribio; Elton Moore Discharge Orders/Prescriptions Prescriptions: New ertapenem 1 gram Recon Soln 1 g IV Q24 7 Days Qty: 7 0RF Rx Instructions: dx: esbl ecoli uti weekly cmp and cbc while on iv abx. Fax to [phone] sennosides-docusate sodium [Stool Softener-Stimulant Laxat] 8.6-50 mg Tablet 2 tab PO BID PRN PRN (Reason: Constipation) Qty: 0 0RF oxycodone 5 mg Tablet 5 mg PO Q6H PRN PRN (Reason: Pain Score 6-10) 3 Days Qty: 10 0RF Continued tamsulosin 0.4 MG capsule 0.4 mg PO QHS Patient Comments: Prostate and urine finasteride 5 MG tablet 5 mg PO DAILY Patient Comments: prostate atorvastatin 40 MG tablet 40 mg PO QHS Patient Comments: CHOLESTEROL sertraline 50 MG tablet 100 mg PO DAILY Patient Comments: depression mirtazapine 15 MG tablet 15 mg PO QHS clopidogrel 75 MG tablet 75 mg PO DAILY carbamazepine 200 MG tablet 200 mg PO Q12H Patient Comments: face pain losartan 100 mg tablet 100 mg PO DAILY pantoprazole 40 mg tablet,delayed release (DR/EC) 40 mg PO DAILY nifedipine 90 mg tablet extended release 90 mg PO DAILY acetaminophen [Tylenol] 325 mg Tablet 650 mg PO Q6H PRN PRN (Reason: Pain 1-10 Or Fever) Qty: 0 0RF ferrous sulfate [FeroSul] 325 mg (65 mg iron) Tablet 325 mg PO BID Qty: 1 0RF nicotine 21 mg/24 hr Patch 24 Hour 21 mg transdermal DAILY Qty: 0 0RF alendronate 70 mg tablet 70 mg PO QWEEK Qty: 1 0RF metoprolol tartrate 25 mg tablet 25 mg PO DAILY albuterol sulfate 90 mcg/actuation HFA aerosol inhaler 1 puff INHALATION Q8H Discontinued hydrocodone-acetaminophen [hydrocodone-acetaminophen] 5-325 mg tablet 1 tab PO Q6H PRN PRN (Reason: Pain) 3 Days Qty: 10 0RF Referrals / Follow Up: Daija Morton MD [Primary Care Provider] - Within 2 Weeks Disposition Disposition (needs filled in before D/C Order can be placed): [facility] Charges/Coding Visit Charges Inpatient E&M: 89480 Disch Hosp >30min 04/04/23 1003 <Electronically signed by Frankie Galindo MD> Cosigner Signature (if applicable): CC: Dr. Daija Morton MD; Dr. Frankie Galindo MD~ Signed [facility] Work Phone: Evaluation + Plan note No data available for this section [facility] Evaluation note* Diagnosis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 colitis, unspecified PVD (peripheral vascular disease) ([facility]) Peripheral vascular disease, unspecified Lupus anticoagulant disorder (HCC) Primary hypercoagulable state Tobacco use disorder Melena Blood in stool COPD (chronic obstructive pulmonary disease) ([facility]) Chronic airway obstruction, not elsewhere classified Dark urine Other nonspecific finding on examination of urine Hospital discharge follow-up- Primary Other follow-up examination Hypertension Unspecified essential hypertension Hematoma, postoperative Hematoma complicating a procedure s/p left femoral endarterectomy/aortoiliac stenting 10/2013 Peripheral vascular disease, unspecified COPD (chronic obstructive pulmonary disease) ([facility]) Chronic airway obstruction, not elsewhere classified Melena Blood in stool Depression Depressive disorder, not elsewhere classified COPD (chronic obstructive pulmonary disease) ([facility])- Primary Chronic airway obstruction, not elsewhere classified s/p left femoral endarterectomy/aortoiliac stenting 10/2013 Peripheral vascular disease, unspecified Anticoagulation goal of INR 2 to 3 Encounter for therapeutic drug monitoring Smoker Tobacco use disorder Hypertension Unspecified essential hypertension Anemia due to acute blood loss Acute posthemorrhagic anemia Anticoagulation goal of INR 2 to 3- Primary Encounter for therapeutic drug monitoring CAD (coronary artery disease) Coronary atherosclerosis of unspecified type of vessel, jena or graft PVD (peripheral vascular disease) (HCC) Peripheral vascular disease, unspecified Melena Blood in stool Depression Depressive disorder, not elsewhere classified Anticoagulation goal of INR 2 to 3- Primary Encounter for therapeutic drug monitoring PVD (peripheral vascular disease) (HCC) Peripheral vascular disease, unspecified Hospital discharge follow-up Other follow-up examination Melena- Primary Blood in stool Essential hypertension Unspecified essential hypertension Tobacco use disorder Anxiety and depression Dysthymic disorder Essential hypertension- Primary Unspecified essential hypertension Smoker Tobacco use disorder Anxiety and depression Dysthymic disorder PVD (peripheral vascular disease) (HCC)- Primary Peripheral vascular disease, unspecified Tobacco use disorder Pain in left shoulder Pain in joint, shoulder region Lupus anticoagulant disorder (HCC) Primary hypercoagulable state Pulmonary emphysema, unspecified emphysema type (HCC) Need for vaccination Need for prophylactic vaccination and inoculation against unspecified single disease Pre-operative examination- Primary Preoperative examination, unspecified PVD (peripheral vascular disease) (HCC) Peripheral vascular disease, unspecified Coronary artery disease, angina presence unspecified, unspecified vessel or lesion type, unspecified whether jena or transplanted heart Mixed hyperlipidemia Essential hypertension Unspecified essential hypertension Pulmonary emphysema, unspecified emphysema type (HCC) PJ (obstructive sleep apnea) Obstructive sleep apnea (adult) (pediatric) IBD (inflammatory bowel disease) Other and unspecified noninfectious gastroenteritis and colitis Gastroesophageal reflux disease, esophagitis presence not specified Urinary retention with incomplete bladder emptying Incomplete bladder emptying Anemia due to acute blood loss Acute posthemorrhagic anemia Lupus anticoagulant disorder (HCC) Primary hypercoagulable state Chronic bilateral low back pain without sciatica Anxiety and depression Dysthymic disorder Illiterate Educational circumstance Uncontrolled hypertension- Primary Unspecified essential hypertension Dysuria Urinary tract infection without hematuria, site unspecified [facility] Diagnosis Onset Date Resolution Status Admit Date Acute diarrhea acute August 25, 2024 6:12pm Debility acute August 25 6:12pm Weakness acute August 25 6:12pm 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 August [id number] 6:12pm [facility] Work Phone: Evaluation note* Diagnosis COPD (chronic obstructive pulmonary disease) (HCC)- Primary Chronic airway obstruction, not elsewhere classified Urinary retention with incomplete bladder emptying Incomplete bladder emptying Anticoagulation goal of INR 2 to 3 Encounter for therapeutic drug monitoring PVD (peripheral vascular disease) Peripheral vascular disease, unspecified Encounter to establish care Other reasons for seeking consultation GI bleeding- Primary Acute posthemorrhagic anemia Lupus anticoagulant disorder (HCC) Primary hypercoagulable state Dysuria- Primary GI bleeding Acute posthemorrhagic anemia Lupus anticoagulant disorder (HCC) Primary hypercoagulable state PVD (peripheral vascular disease) Peripheral vascular disease, unspecified IBD (inflammatory bowel disease) Other and unspecified noninfectious gastroenteritis and colitis Blurring of vision Other specified visual disturbances Anticoagulation goal of INR 2 to 3 Encounter for therapeutic drug monitoring Hypertension Unspecified essential hypertension s/p left femoral endarterectomy/aortoiliac stenting 10/2013 Peripheral vascular disease, unspecified Elevated glucose Other abnormal glucose COPD (chronic obstructive pulmonary disease) (HCC) Chronic airway obstruction, not elsewhere classified Back pain Backache, unspecified PVD (peripheral vascular disease)- Primary Peripheral vascular disease, unspecified COPD (chronic obstructive pulmonary disease) (HCC) Chronic airway obstruction, not elsewhere classified Anticoagulation goal of INR 2 to 3 Encounter for therapeutic drug monitoring Anemia due to acute blood loss Acute posthemorrhagic anemia Hypertension Unspecified essential hypertension Hyperlipidemia Other and unspecified hyperlipidemia Tobacco use disorder Ulcerative colitis (HCC)- Primary Ulcerative colitis, unspecified PVD (peripheral vascular disease) Peripheral vascular disease, unspecified Lupus anticoagulant disorder (HCC) Primary hypercoagulable state Tobacco use disorder Melena Blood in stool COPD (chronic obstructive pulmonary disease) (HCC) Chronic airway obstruction, not elsewhere classified Dark urine Other nonspecific finding on examination of urine Hospital discharge follow-up- Primary Other follow-up examination Hypertension Unspecified essential hypertension Hematoma, postoperative Hematoma complicating a procedure s/p left femoral endarterectomy/aortoiliac stenting 10/2013 Peripheral vascular disease, unspecified COPD (chronic obstructive pulmonary disease) (HCC) Chronic airway obstruction, not elsewhere classified Melena Blood in stool Depression Depressive disorder, not elsewhere classified COPD (chronic obstructive pulmonary disease) (HCC)- Primary Chronic airway obstruction, not elsewhere classified s/p left femoral endarterectomy/aortoiliac stenting 10/2013 Peripheral vascular disease, unspecified Anticoagulation goal of INR 2 to 3 Encounter for therapeutic drug monitoring Smoker Tobacco use disorder Hypertension Unspecified essential hypertension Anemia due to acute blood loss Acute posthemorrhagic anemia Anticoagulation goal of INR 2 to 3- Primary Encounter for therapeutic drug monitoring CAD (coronary artery disease) Coronary atherosclerosis of unspecified type of vessel, jena or graft PVD (peripheral vascular disease) Peripheral vascular disease, unspecified Melena Blood in stool Depression Depressive disorder, not elsewhere classified Anticoagulation goal of INR 2 to 3- Primary Encounter for therapeutic drug monitoring PVD (peripheral vascular disease) Peripheral vascular disease, unspecified Hospital discharge follow-up Other follow-up examination Melena- Primary Blood in stool Essential hypertension Unspecified essential hypertension Tobacco use disorder Anxiety and depression Dysthymic disorder Essential hypertension- Primary Unspecified essential hypertension Smoker Tobacco use disorder Anxiety and depression Dysthymic disorder PVD (peripheral vascular disease)- Primary Peripheral vascular disease, unspecified Tobacco use disorder Pain in left shoulder Pain in joint, shoulder region Lupus anticoagulant disorder (HCC) Primary hypercoagulable state Pulmonary emphysema, unspecified emphysema type (HCC) Need for vaccination Need for prophylactic vaccination and inoculation against unspecified single disease Pre-operative examination- Primary Preoperative examination, unspecified PVD (peripheral vascular disease) Peripheral vascular disease, unspecified Coronary artery disease, angina presence unspecified, unspecified vessel or lesion type, unspecified whether jena or transplanted heart Mixed hyperlipidemia Essential hypertension Unspecified essential hypertension Pulmonary emphysema, unspecified emphysema type (HCC) PJ (obstructive sleep apnea) Obstructive sleep apnea (adult) (pediatric) IBD (inflammatory bowel disease) Other and unspecified noninfectious gastroenteritis and colitis Gastroesophageal reflux disease, esophagitis presence not specified Urinary retention with incomplete bladder emptying Incomplete bladder emptying Anemia due to acute blood loss Acute posthemorrhagic anemia Lupus anticoagulant disorder (HCC) Primary hypercoagulable state Chronic bilateral low back pain without sciatica Anxiety and depression Dysthymic disorder Illiterate Educational circumstance Other emphysema (HCC)- Primary Other emphysema Smoker Tobacco use disorder Wheezing Lower abdominal tenderness Abdominal tenderness, other specified site Loose stools Abnormal feces On home oxygen therapy Dependence on supplemental oxygen Primary hypertension Unspecified essential hypertension Left leg pain Pain in limb Falls Unspecified fall Weakness Other malaise and fatigue [facility] Diagnosis COPD (chronic obstructive pulmonary disease) (HCC)- Primary Chronic airway obstruction, not elsewhere classified Urinary retention with incomplete bladder emptying Incomplete bladder emptying Anticoagulation goal of INR 2 to 3 Encounter for therapeutic drug monitoring PVD (peripheral vascular disease) Peripheral vascular disease, unspecified Encounter to establish care Other reasons for seeking consultation GI bleeding- Primary Acute posthemorrhagic anemia Lupus anticoagulant disorder (HCC) Primary hypercoagulable state Dysuria- Primary GI bleeding Acute posthemorrhagic anemia Lupus anticoagulant disorder ([facility]) Primary hypercoagulable state PVD (peripheral vascular disease) Peripheral vascular disease, unspecified IBD (inflammatory bowel disease) Other and unspecified noninfectious gastroenteritis and colitis Blurring of vision Other specified visual disturbances Anticoagulation goal of INR 2 to 3 Encounter for therapeutic drug monitoring Hypertension Unspecified essential hypertension s/p left femoral endarterectomy/aortoiliac stenting 10/2013 Peripheral vascular disease, unspecified Elevated glucose Other abnormal glucose COPD (chronic obstructive pulmonary disease) ([facility]) Chronic airway obstruction, not elsewhere classified Back pain Backache, unspecified PVD (peripheral vascular disease)- Primary Peripheral vascular disease, unspecified COPD (chronic obstructive pulmonary disease) ([facility]) Chronic airway obstruction, not elsewhere classified Anticoagulation goal of INR 2 to 3 Encounter for therapeutic drug monitoring Anemia due to acute blood loss Acute posthemorrhagic anemia Hypertension Unspecified essential hypertension Hyperlipidemia Other and unspecified hyperlipidemia Tobacco use disorder Ulcerative colitis (HCC)- Primary Ulcerative colitis, unspecified PVD (peripheral vascular disease) Peripheral vascular disease, unspecified Lupus anticoagulant disorder ([facility]) Primary hypercoagulable state Tobacco use disorder Melena Blood in stool COPD (chronic obstructive pulmonary disease) ([facility]) Chronic airway obstruction, not elsewhere classified Dark urine Other nonspecific finding on examination of urine Hospital discharge follow-up- Primary Other follow-up examination Hypertension Unspecified essential hypertension Hematoma, postoperative Hematoma complicating a procedure s/p left femoral endarterectomy/aortoiliac stenting 10/2013 Peripheral vascular disease, unspecified COPD (chronic obstructive pulmonary disease) ([facility]) Chronic airway obstruction, not elsewhere classified Melena Blood in stool Depression Depressive disorder, not elsewhere classified COPD (chronic obstructive pulmonary disease) ([facility])- Primary Chronic airway obstruction, not elsewhere classified s/p left femoral endarterectomy/aortoiliac stenting 10/2013 Peripheral vascular disease, unspecified Anticoagulation goal of INR 2 to 3 Encounter for therapeutic drug monitoring Smoker Tobacco use disorder Hypertension Unspecified essential hypertension Anemia due to acute blood loss Acute posthemorrhagic anemia Anticoagulation goal of INR 2 to 3- Primary Encounter for therapeutic drug monitoring CAD (coronary artery disease) Coronary atherosclerosis of unspecified type of vessel, jena or graft PVD (peripheral vascular disease) Peripheral vascular disease, unspecified Melena Blood in stool Depression Depressive disorder, not elsewhere classified Anticoagulation goal of INR 2 to 3- Primary Encounter for therapeutic drug monitoring PVD (peripheral vascular disease) Peripheral vascular disease, unspecified Hospital discharge follow-up Other follow-up examination Melena- Primary Blood in stool Essential hypertension Unspecified essential hypertension Tobacco use disorder Anxiety and depression Dysthymic disorder Essential hypertension- Primary Unspecified essential hypertension Smoker Tobacco use disorder Anxiety and depression Dysthymic disorder PVD (peripheral vascular disease)- Primary Peripheral vascular disease, unspecified Tobacco use disorder Pain in left shoulder Pain in joint, shoulder region Lupus anticoagulant disorder (HCC) Primary hypercoagulable state Pulmonary emphysema, unspecified emphysema type (HCC) Need for vaccination Need for prophylactic vaccination and inoculation against unspecified single disease Pre-operative examination- Primary Preoperative examination, unspecified PVD (peripheral vascular disease) Peripheral vascular disease, unspecified Coronary artery disease, angina presence unspecified, unspecified vessel or lesion type, unspecified whether jena or transplanted heart Mixed hyperlipidemia Essential hypertension Unspecified essential hypertension Pulmonary emphysema, unspecified emphysema type (HCC) PJ (obstructive sleep apnea) Obstructive sleep apnea (adult) (pediatric) IBD (inflammatory bowel disease) Other and unspecified noninfectious gastroenteritis and colitis Gastroesophageal reflux disease, esophagitis presence not specified Urinary retention with incomplete bladder emptying Incomplete bladder emptying Anemia due to acute blood loss Acute posthemorrhagic anemia Lupus anticoagulant disorder (HCC) Primary hypercoagulable state Chronic bilateral low back pain without sciatica Anxiety and depression Dysthymic disorder Illiterate Educational circumstance Wheezing [facility] Diagnosis COPD (chronic obstructive pulmonary disease) (HCC)- Primary Chronic airway obstruction, not elsewhere classified Urinary retention with incomplete bladder emptying Incomplete bladder emptying Anticoagulation goal of INR 2 to 3 Encounter for therapeutic drug monitoring PVD (peripheral vascular disease) Peripheral vascular disease, unspecified Encounter to establish care Other reasons for seeking consultation GI bleeding- Primary Acute posthemorrhagic anemia Lupus anticoagulant disorder (HCC) Primary hypercoagulable state Dysuria- Primary GI bleeding Acute posthemorrhagic anemia Lupus anticoagulant disorder (HCC) Primary hypercoagulable state PVD (peripheral vascular disease) Peripheral vascular disease, unspecified IBD (inflammatory bowel disease) Other and unspecified noninfectious gastroenteritis and colitis Blurring of vision Other specified visual disturbances Anticoagulation goal of INR 2 to 3 Encounter for therapeutic drug monitoring Hypertension Unspecified essential hypertension s/p left femoral endarterectomy/aortoiliac stenting 10/2013 Peripheral vascular disease, unspecified Elevated glucose Other abnormal glucose COPD (chronic obstructive pulmonary disease) (HCC) Chronic airway obstruction, not elsewhere classified Back pain Backache, unspecified PVD (peripheral vascular disease)- Primary Peripheral vascular disease, unspecified COPD (chronic obstructive pulmonary disease) ([facility]) Chronic airway obstruction, not elsewhere classified Anticoagulation goal of INR 2 to 3 Encounter for therapeutic drug monitoring Anemia due to acute blood loss Acute posthemorrhagic anemia Hypertension Unspecified essential hypertension Hyperlipidemia Other and unspecified hyperlipidemia Tobacco use disorder Ulcerative colitis (HCC)- Primary Ulcerative colitis, unspecified PVD (peripheral vascular disease) Peripheral vascular disease, unspecified Lupus anticoagulant disorder (HCC) Primary hypercoagulable state Tobacco use disorder Melena Blood in stool COPD (chronic obstructive pulmonary disease) ([facility]) Chronic airway obstruction, not elsewhere classified Dark urine Other nonspecific finding on examination of urine Hospital discharge follow-up- Primary Other follow-up examination Hypertension Unspecified essential hypertension Hematoma, postoperative Hematoma complicating a procedure s/p left femoral endarterectomy/aortoiliac stenting 10/2013 Peripheral vascular disease, unspecified COPD (chronic obstructive pulmonary disease) ([facility]) Chronic airway obstruction, not elsewhere classified Melena Blood in stool Depression Depressive disorder, not elsewhere classified COPD (chronic obstructive pulmonary disease) ([facility])- Primary Chronic airway obstruction, not elsewhere classified s/p left femoral endarterectomy/aortoiliac stenting 10/2013 Peripheral vascular disease, unspecified Anticoagulation goal of INR 2 to 3 Encounter for therapeutic drug monitoring Smoker Tobacco use disorder Hypertension Unspecified essential hypertension Anemia due to acute blood loss Acute posthemorrhagic anemia Anticoagulation goal of INR 2 to 3- Primary Encounter for therapeutic drug monitoring CAD (coronary artery disease) Coronary atherosclerosis of unspecified type of vessel, jena or graft PVD (peripheral vascular disease) Peripheral vascular disease, unspecified Melena Blood in stool Depression Depressive disorder, not elsewhere classified Anticoagulation goal of INR 2 to 3- Primary Encounter for therapeutic drug monitoring PVD (peripheral vascular disease) Peripheral vascular disease, unspecified Hospital discharge follow-up Other follow-up examination Melena- Primary Blood in stool Essential hypertension Unspecified essential hypertension Tobacco use disorder Anxiety and depression Dysthymic disorder Essential hypertension- Primary Unspecified essential hypertension Smoker Tobacco use disorder Anxiety and depression Dysthymic disorder PVD (peripheral vascular disease)- Primary Peripheral vascular disease, unspecified Tobacco use disorder Pain in left shoulder Pain in joint, shoulder region Lupus anticoagulant disorder (HCC) Primary hypercoagulable state Pulmonary emphysema, unspecified emphysema type (HCC) Need for vaccination Need for prophylactic vaccination and inoculation against unspecified single disease Pre-operative examination- Primary Preoperative examination, unspecified PVD (peripheral vascular disease) Peripheral vascular disease, unspecified Coronary artery disease, angina presence unspecified, unspecified vessel or lesion type, unspecified whether jena or transplanted heart Mixed hyperlipidemia Essential hypertension Unspecified essential hypertension Pulmonary emphysema, unspecified emphysema type (HCC) PJ (obstructive sleep apnea) Obstructive sleep apnea (adult) (pediatric) IBD (inflammatory bowel disease) Other and unspecified noninfectious gastroenteritis and colitis Gastroesophageal reflux disease, esophagitis presence not specified Urinary retention with incomplete bladder emptying Incomplete bladder emptying Anemia due to acute blood loss Acute posthemorrhagic anemia Lupus anticoagulant disorder (HCC) Primary hypercoagulable state Chronic bilateral low back pain without sciatica Anxiety and depression Dysthymic disorder Illiterate Educational circumstance Other emphysema (HCC)- Primary Other emphysema Chronic respiratory failure with hypoxia (HCC) Chronic respiratory failure Wheezing On home oxygen therapy Dependence on supplemental oxygen [facility] this [facility] Author Fran Cartwright [facility] March 30, 2023 8:08pm Note Date/Time March 30, 2023 7 :32pm [facility] Medical Records Department [address] [place] [id number] H&P Exam - Hospitalist 03/30/231931 MR#: [id number] Acct: [id number] Name: PEDRO PABLO SIERRA Rep #:[id number] : 1950 72 From: Fran Cartwright MD PCP: Dr. Daija Morton MD Status:ADM I N Location: [facility] [place] [id number] HPI - General General Date of Admission: 03/30/23 Date of Service: 03/30/23 Chief Complaint: Weakness HPI Narrative PEDRO PABLO SIERRA, is a 72 M with a significant history of COPD; hyperlipidemia; hypertension; and chronic falls who presents to the emergency department with generalized weakness above his baseline. Of note the day before presentation patient was sent to the emergency department for fall and multiple images were done. Patient was discharged home. On this new day of presentation patient has not fallen but he is too weak to thepoint that he could not walk. Also patient reports of lower back pain. Also, the patient has a burning sensation with urination. [facility] Medical History (Updated 03/30/23 @ 20:[address] Fran Cartwright MD) Asthma Atrial fibrillation Chronic pain COPD (chronic obstructive pulmonary disease) COPD (chronic obstructive pulmonary disease) Depression Diabetes Falls frequently High cholesterol Hypertension Irregular heart beat Kidney stones On home oxygen therapy Pancreatitis Seizures Sleep apnea Smoker Stroke/cerebrovascular accident Home Medications tamsulosin 0.4 mg capsule 0.4 mg PO QHS bph 01/26/14 [History Last Taken 03/28/23] finasteride 5 mg tablet 5 mg PO DAILY prostate 11/14/14 [History Last Taken 03/28/23] atorvastatin 40 mg tablet 40 mg PO QHS Cholesterol 09/23/15 [History Last Taken 03/28/23] sertraline 50 mg tablet 100 mg PO DAILY mood stabilizer 12/02/15 [History Last Taken 03/28/23] mirtazapine 15 mg tablet 15 mg PO QHS anti depressant 08/16/19 [History Last Taken 03/28/23] clopidogrel 75 mg tablet 75 mg PO DAILY blood thinner 10/25/19 [History Last Taken 03/28/23] carbamazepine 200 mg tablet 200 mg PO Q12H Check with primary doctor 10/26/19 [History Last Taken 03/28/23] losartan 100 mg tablet 100 mg PO DAILY Blood pressure 08/19/21 [History Last Taken 03/28/23] pantoprazole 40 mg tablet,delayed release 40 mg PO DAILY GERD 08/19/21 [History Last Taken 03/28/23] nifedipine 90 mg tablet,extended release 90 mg PO DAILY 11/25/21 [History Last Taken 03/28/23] acetaminophen 325 mg tablet (Tylenol) 650 mg (2 x 325 mg) PO Q6H PRN PRN Pain 1- 10 Or Fever #0 tabs 11/30/21 [Rx Last Taken 03/28/23] alendronate 70 mg tablet 70 mg PO QWEEK #1 TAB 11/30/21 [Rx Last Taken 03/28/23] ferrous sulfate 325 mg (65 mg iron) tablet (FeroSul) 325 mg PO BID #1 TAB 11/30/21 [Rx Last Taken 03/28/23] nicotine 21 mg/24 hr daily transdermal patch 21 mg transdermal DAILY #0 ea 11/30/21 [Rx Last Taken 03/28/23] hydrocodone-acetaminophen 5-325mg 5mg-325mg 1 tab PO Q6H PRN PRN Pain 3 days #10TABLETS 02/25/23 [Rx Last Taken 03/28/23] albuterol sulfate 90 mcg/actuation aerosol inhaler 1 puff inhalation Q8H 03/30/23 [History Last Taken 03/28/23] metoprolol tartrate 25 mg tablet 25 mg PO DAILY 03/30/23 [History Last Taken 03/28/23] Allergy/AdvReac Type Severity Reaction Status Date / Time No Known Allergies Allergy Verified 03/30/23 14:14 Family History Other Heart disease Surgical History History of appendectomy S/P arterial stent Social History household members: none Smoking Status: Current every day smoker tobacco type: cigarettes alcohol intake: former details: Former 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 ROS Narrative Pertinent positives and pertinent negatives as noted in HPI. All other systems were reviewed and are negative Vital Signs Vital Signs Vital Signs: 03/30/23 14:10 03/30/23 15:32 Temperature 96.5 F L Temperature Source Temporal Pulse Rate 87 Respiratory Rate 18 Respiratory Effort Normal Respiratory Depth Normal Respiratory Pattern Normal Blood Pressure 212/86 H Blood Pressure Mean 128 Pulse Ox 97 Oxygen Delivery Method Room Air Room Air Physical Exam Narrative Physical exam: General: Well-nourished, well-developed. Head: Normocephalic, atraumatic, no tenderness Eyes: Vision is grossly intact. EOMI ENT, no trauma, moist mucous membranes, no rhinorrhea Neck: Nontender, No thyromegaly. CVS: Regular rate and rhythm. S1-S2 present. No murmur, gallop or rub. Respiratory : clear to auscultation bilaterally, chest wall nontender Abdomen: Soft, nontender, nondistended, normal bowel sounds, no masses : Deferred Back: Nontender, no midline spinal tenderness, deformities, step-offs Extremities: Nontender full range of motion Skin: Normal color, no trauma, abrasions Neuro: Alert, oriented, cranial nerves II through XII grossly intact. Psychiatry: Normal mood. Normal affect. Not depressed. Not anxious. Results Lab / Micro Data 03/30/23 16:03 03/30/23 16:03 Labs: Laboratory Results - last 24 hr 03/30/23 16:03: WBC 10.0, RBC 4.81, Hgb 15.4, Hct 46.9, MCV 97.5 H, MCH 32.0, MCHC 32.8, RDW Std Deviation 50.3 H, RDW Coeff of Aly 13.9, Plt Count 276, MPV 9.8, Immature Gran % (Auto) 0.300, Neut % (Auto) 79.2 H, Lymph % (Auto) 9.3 L, Phelps % (Auto) 10.5 H, Eos % (Auto) 0.0, Baso % (Auto) 0.7, Absolute Neuts (auto)7.9 H, Absolute Lymphs (auto) 0.93, Nucleated RBC % 0, Sodium 134 L, Potassium 4.0, Chloride 99, Carbon Dioxide 31.0, Anion Gap 4 L, BUN 19 H, Creatinine 1.19,Est GFR (MDRD) Af Amer 77, Est GFR (MDRD) Non-Af 64, BUN/Creatinine Ratio 16.0, Glucose 104, Calcium 9.8 03/30/23 17:04: Urine Color Yellow, Urine Clarity Sl. Cloudy, Urine pH 6.0, Ur Specific [place] 1.020, Urine Protein 100 H, Urine Glucose (UA) Normal, Urine Ketones Negative, Urine Occult Blood 50 H, Urine Nitrite Negative, Urine Bilirubin Negative, Urine Urobilinogen Normal, Ur Leukocyte Esterase 500 H, Urine RBC 0 SEEN, Urine WBC 25-50 SEEN, Ur Squamous Epith Cells 0-5 SEEN, Urine Bacteria 3+, Urine Mucus 0 SEEN Radiology Impression Pelvis X-Ray 03/30/23 15:46 IMPRESSION: Mild multilevel degenerative disease with no acute fracture or subluxation. Electronically Signed: Irish Velásquez MD at 17:14 EDT , Shoulder X-Ray 03/30/23 15:46 IMPRESSION: Mild degenerative disease as described with no acute fracture or subluxation. Electronically Signed: Irish Velásquez MD at 17:15 EDT Reading Location ID and State: [id number] / [place] , Service support , Thoracic Spine CT 03/30/23 15:46 IMPRESSION: Diffuse osteopenia/osteoporosis with minimal compression fracture of T11, exact age indeterminate. No retropulsion or extension to the pedicles visualized. Underlying degenerative disease. No subluxation. Electronically Signed: Irish Velásquez MD at 17:12 EDT Reading Location ID and State: [id number] / [place] , Service support , Chest X-Ray 03/30/23 16:30 IMPRESSION: No acute cardiac pulmonary disease. Electronically Signed: Irish Velásquez MD at 17:15 EDT Reading Location ID and State: [id number] / [place] , Service support , Assessment & Plan Assessment/Plan (1) UTI (urinary tract infection): QUALIFIERS: Urinary tract infection type: acute cystitis Hematuria presence: without hematuria Qualified Code(s): N30.00 - Acute cystitis without hematuria (2) Weakness: (3) Chronic respiratory failure with hypoxia: PLAN: Plan Acute cystitis Likely contributing to his weakness. Urinalysis at the emergency department was remarkable for leukocyte esterase of 500; urine RBC of 25-50; urine bacteria 3+. Of note urine nitrite was negative.Previous urine culture microbiology was reviewed. Urine culture on 10/23/2022 was resistant to many organisms including ampicillin; ceftriaxone; Bactrim; and Levaquin. However it was sensitive to ampicillin/sulbactam; gentamicin; imipenem; Macrodantin; Zosyn; and tobramycin. Patient was started on Zosyn at the emergency department and continued Generalized weakness and frequent falls PT and OT to work with patient. Case management consult. Impression of chest x-ray by radiology: No acute cardiopulmonary disease. Independent review of chest x-ray by hospitalist: Agrees with radiology interpretation. Thoracic spine CT on presentation with minimal compression fracture of T1 which is age indeterminate. Tylenol ordered. As needed oxycodone ordered. COPD Does not seem to be in exacerbation As needed albuterol ordered. Hypertensive Urgency Home blood pressure medication resumed.. Hydralazine ordered. Trend blood pressures Tobacco abuse Counseled Nicotine patch prescribed. Paroxysmal A-fib Noted RVR. Metoprolol continued. Not on anticoagulation which I agree with if patient has multiple falls. History of CVA Stable Plavix continued. DVT prophylaxis SCDs ordered Time spent in the patient's overall evaluation,decision-making process, review of diagnostic data, adjustment of management, discussion with other providers, nursing nursing and ancillary staff involved in patient's care documentation, 70minutes. Charges/Coding Visit Charges Inpatient E&M: 54364 Init Hosp L3 03/30/232007 <Electronically signed by Fran Cartwright MD> Cosigner Signature (if applicable): CC: Dr. Daija Morton MD; Dr. Fran Cartwright MD~ Signed [facility] Work Phone: History and physical note Author Андрей Cooley [facility] July 24, 2023 9:10pm Note Date/Time July 24, 2023 9 :10pm [facility] Medical Records Department [address] [place] [address] History & Physical Exam 07/24/232103 MR#: [id number] Acct: [id number] Name: PEDRO PABLO SIERRA Rep #:[id number] : 1950 73 From: Андрей Cooley MD PCP: Dr. Daija Morton MD Status:REG E R Location: ED HPI - General General Date of Admission: 07/24/23 Date of Service: 07/24/23 Chief Complaint: fall with fracture HPI Narrative PEDRO PABLO SIERRA, is a 73 M who presents to the emergency room with chief complaint of pain after suffering a fall. Patient was out shopping with his brother when he was lifting groceries and fell to his right side and felt significant pain inhis hip area. X-rays revealed two pubic rami fractures. Patient has significant past medical history of recent discharge from senior care for debility and weakness. Patient does also have a history of long-term smoking. Patient denies any chest pain, shortness of breath fevers or chills at present time. He will be admitted for pain control and case management to arrange for retirement care facility. [facility] Medical History Asthma Atrial fibrillation Chronic pain COPD (chronic obstructive pulmonary disease) COPD (chronic obstructive pulmonary disease) Depression Diabetes Falls frequently High cholesterol Hypertension Irregular heart beat Kidney stones On home oxygen therapy Pancreatitis Seizures Sleep apnea Smoker Stroke/cerebrovascular accident Home Medications tamsulosin 0.4 mg capsule 0.4 mg PO QHS bph 01/26/14 [History Last Taken 03/28/23] finasteride 5 mg tablet 5 mg PO DAILY prostate 11/14/14 [History Last Taken 03/28/23] atorvastatin 40 mg tablet 40 mg PO QHS Cholesterol 09/23/15 [History Last Taken 03/28/23] sertraline 50 mg tablet 100 mg PO DAILY mood stabilizer 12/02/15 [History Last Taken 03/28/23] mirtazapine 15 mg tablet 15 mg PO QHS anti depressant 08/16/19 [History Last Taken 03/28/23] clopidogrel 75 mg tablet 75 mg PO DAILY blood thinner 10/25/19 [History Last Taken 03/28/23] carbamazepine 200 mg tablet 200 mg PO Q12H Check with primary doctor 10/26/19 [History Last Taken 03/28/23] losartan 100 mg tablet 100 mg PO DAILY Blood pressure 08/19/21 [History Last Taken 03/28/23] pantoprazole 40 mg tablet,delayed release 40 mg PO DAILY GERD 08/19/21 [History Last Taken 03/28/23] nifedipine 90 mg tablet,extended release 90 mg PO DAILY 11/25/21 [History Last Taken 03/28/23] acetaminophen 325 mg tablet (Tylenol) 650 mg (2 x 325 mg) PO Q6H PRN PRN Pain 1- 10 Or Fever #0 tabs 11/30/21 [Rx Last Taken 03/28/23] alendronate 70 mg tablet 70 mg PO QWEEK #1 TAB 11/30/21 [Rx Last Taken 03/28/23] ferrous sulfate 325 mg (65 mg iron) tablet (FeroSul) 325 mg PO BID #1 TAB 11/30/21 [Rx Last Taken 03/28/23] nicotine 21 mg/24 hr daily transdermal patch 21 mg transdermal DAILY #0 ea 11/30/21 [Rx Last Taken 03/28/23] albuterol sulfate 90 mcg/actuation aerosol inhaler 1 puff inhalation Q8H 03/30/23 [History Last Taken 03/28/23] metoprolol tartrate 25 mg tablet 25 mg PO DAILY 03/30/23 [History Last Taken 03/28/23] ertapenem 1 gram solution for injection 1 g IV Q24 7 days #7 ea 04/03/23 [Rx Last Taken Unknown] oxycodone 5 mg tablet 5 mg PO Q6H PRN PRN Pain Score 6-10 3 days #10 tabs 04/04/23 [Rx Last Taken Unknown] sennosides 8.6 mg-docusate sodium 50 mg tablet (Stool Softener-Stimulant Laxative) 2 tab PO BID PRN PRN Constipation #0 tabs 04/04/23 [Rx Last Taken Unknown] Allergy/AdvReac Type Severity Reaction Status Date / Time No Known Allergies Allergy Verified 07/24/23 16:43 Family History Other Heart disease Surgical History History of appendectomy S/P arterial stent Social History household members: none Smoking Status: Current every day smoker tobacco type: cigarettes alcohol intake: former details: Former 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 Constitutional Constitutional: Denies chills or fever(s) Eyes Eyes: Denies blurry vision ENT HEENT: Denies abnormal hearing Cardiovascular Cardiovascular: Reports chest pain Respiratory/Chest Respiratory/Chest: Denies shortness of breath at rest Gastrointestinal Gastrointestinal: Denies abdominal pain Genitourinary Genitourinary: Denies dysuria Musculoskeletal Musculoskeletal: Reports extremity pain and joint pain Integumentary Integumentary: Denies dry skin Neurologic Neurologic: Denies confusion or dizziness Psychiatric Psychiatric: Denies depression Vital Signs Vital Signs Vital Signs: 07/24/23 16:44 07/24/23 17:27 07/24/23 17:27 Temperature 96.7 F L Temperature Source Temporal Pulse Rate 58 L 75 Respiratory Rate 18 16 Respiratory Effort Normal Respiratory Depth Normal Respiratory Pattern Normal Blood Pressure 135/105 H 193/74 H Blood Pressure Mean 115 113 Pulse Ox 95 94 Oxygen Delivery Method Room Air Room Air Room Air 07/24/23 20:17 Temperature Temperature Source Pulse Rate 71 Respiratory Rate 16 Respiratory Effort Respiratory Depth Respiratory Pattern Blood Pressure 194/90 H Blood Pressure Mean 124 Pulse Ox 90 Oxygen Delivery Method Room Air Weight Weight: 149 lb 14.629 oz Body Mass Index (BMI) 22.8 Physical Exam Const oriented x3 General Appearance: cooperative HEENT normocephalic and head/scalp atraumatic Eyes PERRL Neck no lymphadenopathy Lymph Lymphatic: no lymphadenopathy noted Resp normal respiratory effort and normal air movement Auscultation: wheezes Cardio regular rate, regular rhythm, S1 normal heart sound and S2 normal heart sound GI normal to inspection, nondistended, normoactive bowel sounds Extremity Extremity Narrative: tenderness in right pelvis Skin General Skin Exam: no breakdown Neuro no focal motor deficits and no sensory deficits noted Psych thought process normal, cooperative and affect normal Results Lab / Micro Data 07/24/23 17:20 07/24/23 17:20 Labs: Laboratory Results - last 24 hr 07/24/23 17:20: WBC 7.1, RBC 5.00, Hgb 16.2, Hct 47.4, MCV 94.8 H, MCH 32.4 H, MCHC 34.2, RDW Std Deviation 44.3 H, RDW Coeff of Aly 12.8, Plt Count 285, MPV 9.8, Immature Gran % (Auto) 0.600, Neut % (Auto) 74.0 H, Lymph % (Auto) 16.0 L, Phelps % (Auto) 7.3, Eos % (Auto) 1.1, Baso % (Auto) 1.0, Absolute Neuts (auto) 5.3, Absolute Lymphs (auto) 1.14, Nucleated RBC % 0, Sodium 139, Potassium 3.8, Chloride 103, Carbon Dioxide 28.0, Anion Gap 8, BUN 18, Creatinine 1.28, Estim Creat Clear Calc 48.70, Est GFR (MDRD) Af Amer 71, Est GFR (MDRD) Non-Af 58 L, BUN/Creatinine Ratio 14.1, Glucose 134 H, Calcium 9.8 Imaging Radiology Impression Hip/Pelvis X-Ray 07/24/23 16:52 IMPRESSION: Acute fractures of right superior and inferior pubic rami Electronically Signed: Gonzales Chaney MD at 17:27 EST Reading Location ID and State: [address] [place] [address] Tel , Service support , Assessment & Plan Assessment/Plan (1) Closed fracture of right superior pubic ramus: (2) Closed fracture of right inferior pubic ramus: (3) Inability to walk: (4) Weakness: PLAN: Plan 1 closed fracture of right superior and right inferior pubic ramus?admit patient to general medical floor, morphine as needed pain, consult case management for discharge planning 2. History of smoking will add nicotine patch 3. Hypertension we will continue routine home medications 4. COPD?continue inhalers for control 5 DVT prophylaxis?low molecular weight heparin if not on anticoagulation Charges/Coding Visit Charges Inpatient E&M: 84903 Init Hosp L2 07/24/232109 <Electronically signed by Андрей Cooley MD> Cosigner Signature (if applicable): CC: Dr. Daija Morton MD; Dr. Андрей Cooley MD~ Signed [facility] Work Phone: History and physical note Author Lisha Talamantes [facility] Note Date/Time August 25, 2024 7:00 pm [facility] Medical Records Department [address] [place] [address] H&P Exam - Hospitalist 08/25/24 1820 MR#: [id number] Acct: [id number] Name: PEDRO PABLO SIERRA Rep #:[id number] : 1950 74 From: Lisha Talamantes DO PCP: Dr. Daija Morton MD Status:ADM I NO [id number] - General General Date of Admission: 08/25/24 Date of Service: 08/25/24 Chief Complaint: Diarrhea/generalized weakness HPI Narrative PEDRO PABLO SIERRA, is a 74 M who presented to the emergency department [facility] on 08/25/2024 with a chief complaint of generalized weakness and diarrhea. Patient had recently been at [facility] and was discharged about 5 days ago on 08/20/2024. His daughter called in and assisted with history but was not able to get the bedside at the time of my evaluation. Per her report he been having diarrhea since he was discharged home. He evidently was having it prior to discharge as well. He does have somebaseline dementia and has been having diarrhea all of her house. He also smokesand has been dropping his cigarettes all of her trailer and she reports he has been having some weakness. It does not appear she has had any falls. Patient'sreview of systems is overall negative except for his diarrhea. He is not clear with his recent medical history and it does not appear he has been compliant with his medications. Vital signs on presentation showed temperature of 97.7, heart rate 66, blood pressure 197/90, respiratory was 24 and oxygen saturation is 93% on room air. His CBC is completely unremarkable. Chemistry panel is unremarkable. Chest x-ray is unremarkable for acute findings. [facility] Medical History Compression fx, lumbar spine Hypertension Falls Hypertension Closed fracture of right superior pubic ramus Multiple falls Compression fracture of thoracic vertebra History of atrial fibrillation Iron deficiency anemia Chronic respiratory failure with hypoxia Osteoporosis Lumbar compression fracture Compression fracture Obstructive sleep apnea Hyperlipidemia Asthma Peripheral arterial occlusive disease Seizure disorder Chronic obstructive pulmonary disease Coronary artery disease Lupus anticoagulant disorder BPH (benign prostatic hyperplasia) Ulcerative colitis Peripheral vascular disease Anxiety COPD (chronic obstructive pulmonary disease) with emphysema Closed fracture of right inferior pubic ramus Acute UTI COPD (chronic obstructive pulmonary disease) UTI (urinary tract infection) Depression Diabetes Kidney stones Chronic pain Pancreatitis On home oxygen therapy Irregular heart beat Atrial fibrillation Stroke/cerebrovascular accident Smoker Falls frequently Seizures Sleep apnea COPD (chronic obstructive pulmonary disease) Asthma High cholesterol Tobacco abuse Home Medications ?Medication ?Instructions ?Recorded ?Last Taken ?Type tamsulosin 0.4 mg capsule 0.4 mg PO QHS bph 01/26/14 1 History finasteride 5 mg tablet 5 mg PO DAILY prostate 11/1403/28/23 History atorvastatin 40 mg tablet 40 mg PO QHS Cholesterol 12/0203/28/23 History mirtazapine 15 mg tablet 15 mg PO QHS anti depressant 08/16/19 03/28/23 History clopidogrel 75 mg tablet 75 mg PO DAILY blood thinner 10/25/19 03/28/23 History losartan 100 mg tablet 100 mg PO DAILY Blood pressu re 08/19/21 03/28/23 History pantoprazole 40 mg tablet,delayed 40 mg PO DAILY GERD 08/19/21 03/28/23 History release nifedipine 90 mg tablet,extended 90 mg PO DAILY blood pressure 11/25/21 03/28/23 History release alendronate 70 mg tablet 70 mg PO QWEEK #1 TAB 03/28/23 Rx metoprolol tartrate 25 mg tablet 25 mg PO DAILY Blood pressure 03/30/23 03/28/23 History sennosides 8.6 mg-docusate sodium 2 tab PO BID PRN PRN Constipation 04/04/23 Unknown Rx 50 mg tablet (Stool #0 tabs Softener-Stimulant Laxative) acetaminophen 500 mg tablet 1,000 mg (2 x 500 mg) PO Q 8 30 07/26/23 Unknown Rx days #0 tabs albuterol sulfate 90 mcg/actuation 1 puff inhalation Q 8H 08/22/23 Unknown History aerosol inhaler carbamazepine 200 mg 200 mg PO Q12H 08/22/23 Unkn own History tablet,extended release,12 hr cholecalciferol (vitamin D3) 50 50 mcg PO DAILY Unknown History mcg (2,000 unit) tablet clonidine HCl 0.1 mg tablet 0.1 mg PO BID 08/22/23 Unk nown History guaifenesin 100 mg/5 mL oral liquid 200 mg PO Q4H PRN congestion 08/22/23 Unknown History sertraline 100 mg tablet 100 mg PO DAILY 08/22/23 Unk nown History ergocalciferol (vitamin D2) 1,250 1,250 mcg PO Q7D #0 caps 04/10/24 Unknown Rx mcg (50,000 unit) capsule (Vitamin D2) Allergy/AdvReac Type Severity Reaction Status Date / Time No Known Allergies Allergy Verified 04/06/24 11:12 Family History Other Heart disease Surgical History S/P arterial stent History of appendectomy Social History (Updated 08/25/24 @ 18:[address] 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 quit several years ago substance use type: does not use caffeine: Yes Type: coffee Number of servings: 3 ROS Constitutional Constitutional: Reports weakness; Denies anorexia, change in weight, chills, fatigue, fever(s), malaise, night sweats or other Eyes Eyes: Denies blurry vision, change in eye color, change in vision, discharge from eye(s), double vision, erythema, eye pain, loss of vision or other ENT HEENT: Denies abnormal hearing, dysphagia, ear pain, epistaxis, headache(s), hearing loss, nasal congestion, nasal discharge, post nasal drip, sinus pressure, sore throat or other Cardiovascular Cardiovascular: Denies chest pain, claudication, dyspnea on exertion, edema, lightheadedness, orthopnea, palpitations, paroxysmal nocturnal dyspnea, rapid heart rate, syncope or other Respiratory/Chest Respiratory/Chest: Denies cough, dyspnea, excessive phlegm production, hemoptysis, productive cough, shortness of breath at rest, shortness of breath with exertion, wheezing or other Gastrointestinal Gastrointestinal: Reports diarrhea; Denies abdominal pain, coffee ground emesis,constipation, dyspepsia, hematemesis, hematochezia, loose stools, melena, nausea, vomiting or other Genitourinary Genitourinary: Denies burning urination, difficulty urinating, dysuria, hematuria, nocturia, urinary frequency, urinary hesitancy, urinary incontinence,urinary urgency or other Musculoskeletal Musculoskeletal: Denies arthralgias, back pain, joint pain, joint stiffness, joint swelling, myalgias, neck pain or other Neurologic Neurologic: Denies abnormal gait, abnormal speech, confusion, disequilibrium, dizziness, focal weakness, headache(s), numbness, paresthesias, seizure-like activity, seizures, syncope, tingling, tremor(s) or other Psychiatric Psychiatric: Denies anxiety, depression, homicidal ideation, suicidal ideation or other Endocrine Endocrinology: Denies change in body appearance, cold intolerance, excessive sweating, heat intolerance, polydipsia, polyuria or other Hematologic/Lymphatic Hematologic/Lymphatic: Denies anemia, easy bleeding, easy bruising, lymphadenopathy or other Allergic/Immunologic Allergic/Immunologic: Denies rhinitis, hives, eczemia, asthma or other Vital Signs Vital Signs Vital Signs: 08/25/24 16:12 Temperature 97.7 F L Temperature Source Temporal Physical Exam Const alert, no apparent distress, average body habitus and well nourished Constitutional Narrative: Older, white male, sitting up in bed, appears nontoxic and comfortable, orientedto self and place but not time General Appearance: cooperative HEENT normocephalic and head/scalp atraumatic HEENT Narrative: Mild hearing loss, Mallampati 2, no thrush Eyes conjunctivae normal Eyes Narrative: No scleral icterus Resp normal respiratory effort, no retractions, no use of accessory muscles and No clear to auscultation bilaterally Resp Narrative: Scattered end expiratory wheezes Auscultation: wheezes; Negative for rales or rhonchi Cardio regular rate, regular rhythm, S1 normal heart sound, S2 normal heart sound, no murmurs, no rub, no gallops and no clicks GI normal to inspection, nondistended, normoactive bowel sounds, soft to palpation and non-tender Extremity no clubbing, cyanosis or edema Extremity Narrative: Pedal and radial pulses are 2+ Neuro oriented x3 and moves all extremities Neuro Narrative: Significant generalized weakness-proximal greater than distal but no focal deficits Sensorium / Orientation: awake, alert, oriented to person and oriented to place;Negative for oriented to time Speech: speech normal Psych Psych Narrative: Pleasantly confused at this time however has been intermittently agitated Results Lab / Micro Data 08/25/24 16:40 08/25/24 16:40 Labs: Laboratory Results - last 24 hr 08/25/24 16:40: WBC 5.9, RBC 4.52 L, Hgb 14.2, Hct 43.3, MCV 95.8 H, MCH 31.4, MCHC 32.8, RDW Std Deviation 46.6 H, RDW Coeff of Aly 13.2, Plt Count 245, MPV 9.5, Immature Gran % (Auto) 0.300, Neut % (Auto) 78.4 H, Lymph % (Auto) 10.3 L, Phelps % (Auto) 9.9, Eos % (Auto) 0.3, Baso % (Auto) 0.8, Absolute Neuts (auto) 4.6, Absolute Lymphs (auto) 0.61 L, Nucleated RBC % 0, Sodium 139, Potassium 3.8, Chloride 102, Carbon Dioxide 24.5, Anion Gap 13, BUN 25 H, Creatinine 1.17,Est GFR (MDRD) Non- Af 65, BUN/Creatinine Ratio 21.4 H, Glucose 98, Calcium 10.0,Total Bilirubin 0.22, AST 26, ALT 32, Alkaline Phosphatase 77, Total Protein 7.7, Albumin 4.5, Globulin 3.2, Albumin/Globulin Ratio 1.4 Imaging Radiology Impression Chest X-Ray 08/25/24 16:19 IMPRESSION: No acute airspace abnormality. Reading Location: [facility] Assessment & Plan Assessment/Plan (1) Acute diarrhea: (2) Weakness: (3) Failure to thrive: QUALIFIERS: Failure to thrive age range: in adult Qualified Code(s): R62.7 - Adult failure to thrive (4) Debility: PLAN: Plan Acute diarrhea -Patient does not appear to be dehydrated -Check enteric panel and C. difficile -Monitor stools -If enteric panel and C. difficile are negative consider Imodium if diarrhea is ongoing Generalized weakness/debility/failure to thrive -Since that family is having difficulty taking care of him in the current livingenvironment -Was recently discharged from [facility] however patient wasadamant that he did not want to go back to the same place -? If ECF should be pursued -PT/OT/case management consultation pending COPD -Patient does have some wheezing on presentation but not hypoxic -Will utilize scheduled and as needed nebulizers -If wheezing persistent may need to consider short taper of steroids Osteoporosis -Restart alendronate at discharge -Cont home cholecalciferol Seizure disorder -Continue home carbamazepine CAD/essential hypertension/hyperlipidemia/history of stroke/PAD -Blood pressure is markedly elevated on presentation however it does not appear patient been compliant with his medications -Restart home nifedipine 90 mg daily -Restart home metoprolol 25 mg p.o. daily -restart home losartan 100 mg daily -Restart home clonidine 0.1 mg p.o. twice daily -Restart home Plavix History of atrial fibrillation -Patient is on no current treatment other than beta-joel -Monitor vital signs BPH with obstruction -continue home Flomax -Continue home finasteride GERD -continue PPI Tobacco abuse -14 mcg nicotine patch -Recommend cessation Alzheimer's type dementia -Suspect patient needs more supervision than the currently available home -Monitor for behavior abnormalities and sundowning -May need to consider adding low-dose risperidone if problematic DVT prophylaxis -Subcu Lovenox daily CODE STATUS -Full code but unverified as no one was available to have end-of-life discussionwith -Will need clarified Charges/Coding Visit Charges Inpatient E&M: 98234 Init Hosp L2 08/25/24 1900 <Electronically signed by Lisha Talamantes DO> Cosigner Signature (if applicable): CC: Dr. Daija Morton MD; Dr. Lisha Talamantes DO~ Signed [facility] Work Phone: [facility] Work Phone: [phone] Discharge instructionsWMiami [facility] Work Phone: [phone] Discharge instructionsPrem[facility] Work Phone: [phone] Dis[facility] instructionsWM[facility] Work Phone: [phone] Dis[facility] instructionsPrem[facility] Work Phone: [phone] Dis[facility] instructionsWM[facility] Work Phone: [phone] Discharge instructions Additional Instructions Ice to your rib cage. Support your sore ribs with a pillow. Your chest x-ray did not show any broken ribs sometimes however there are small cracks in the ribs we cannot see on the x-ray. [place] for more severe pain. Otherwise use Tylenol. If you are using the pain medication [place] then do not use Tylenol with it. Follow-up with your doctor as needed. Keep the wounds on your forearms clean. Clean daily with soap and water. Patient apply antibiotic ointment. Watch for any signs of infection if seen follow-up.[facility] Work Phone: Hospital Discharge instructions Additional Instructions Please use the walker and follow-up with your primary care doctor.[facility] Work Phone: Progress note No data available for this section [facility] Reason for referral (narrative)* Outpatient Procedure (Routine) - Closed Specialty Diagnoses / Procedures Referred By Contac t Referred To [facility] Diagnoses COPD with chronic bronchitis (HCC) Procedures OXIMETRY WITH AMBULATION NONINVASIVE EAR/PULSE OXIMETRY MULTIPLE DETER Emilie Jauregui PA-C [address] [address] Referral ID Status Reason Start Date Expiration Date V isits Requested Visits Authorized [id number] Closed Auto-Generate d Referral 11/05/2021 06/18/2022 1 1 * Outpatient Procedure (Routine) - Closed Specialty Diagnoses / Procedures Referred By Contac t Referred [facility] Diagnoses COPD with chronic bronchitis (HCC) Procedures LUNG DIFFUSION CAPACITY (DLCO) DIFFUSING CAPACITY Emilie Jauregui PA-C [address] [place] [address] [address] [address] Referral ID Status Reason Start Date Expiration Date V isits Requested Visits Authorized [id number] Closed Auto-Generate d Referral 11/05/2021 06/18/2022 1 1 * Outpatient Procedure (Routine) - Closed Specialty Diagnoses / Procedures Referred By Contac t Referred [facility] Diagnoses COPD with chronic bronchitis (HCC) Procedures SPIROMETRY BASELINE ONLY SPMTRY W/VC EXPIRATORY BRIAN W/WO MXML VOL VNTJ Emilie Jauregui PA-C [address] [place] [address] [address] [address] Referral ID Status Reason Start Date Expiration Date V isits Requested Visits Authorized [id number] Closed Auto-Generate d Referral 11/05/2021 06/18/2022 1 1 [facility] for referral (narrative)* Outpatient Procedure (Routine) - Pending Review Specialty Diagnoses / Procedures Referred By Contac t Referred To Contact [facility] [place] Diagnoses Essential hypertension Chest pain, unspecified type Procedures ECG COMPLETE ECG ROUTINE ECG W/LEAST 12 LDS W/I&R Anjel Braga APRN.CNP [address] [place] [address] [facility] [place] [address] [place] [id number] Referral ID Status Reason Start Date Expiration Date Visits Requested Visits Authorized [id number] Pending Review Auto-Generat ed Referral 01/28/2022 01/28/2023 1 1 [facility] for referral (narrative)* Outpatient Procedure (Routine) - Authorized Specialty Diagnoses / Procedures Referred By Contac t Referred To Contact [facility] [place] Diagnoses PVD (peripheral vascular disease) (HCC) Procedures [facility] NON-INVASIVE PHYSIOLOGIC STUDY EXTREMITY [address] [place] [address] [place] [address] [facility] [address] [address] Referral ID Status Reason Start Date Expiration Date Visits Requested Visits Authorized [id number] Authorized Auto-Generat ed Referral 01/31/2022 01/31/2023 1 1 [facility] for referral (narrative)* Outpatient Procedure (Routine) - Authorized Specialty Diagnoses / Procedures Referred By Contac t Referred To Contact [facility] [place] Diagnoses Peripheral arterial disease (HCC) PVD (peripheral vascular disease) (HCC) Procedures [facility] NON-INVASIVE PHYSIOLOGIC STUDY EXTREMITY [address] [place] [address] [place] [address] [facility] [place] [address] [place] [address] Referral ID Status Reason Start Date Expiration Date Visits Requested Visits Authorized [id number] Authorized Auto-Generat ed Referral 12/26/2022 12/26/2023 1 1 [facility] for referral (narrative)* Outpatient Procedure (Routine) - Authorized Specialty Diagnoses / Procedures Referred By Contac t Referred To Contact [facility] [place] Diagnoses Peripheral arterial disease (HCC) Procedures [facility] NON-INVASIVE PHYSIOLOGIC STUDY EXTREMITY [address] [place] [address] [place] [address] [address] Referral ID Status Reason Start Date Expiration Date Visits Requested Visits Authorized [id number] Authorized Auto-Generat ed Referral 01/02/2024 01/01/2025 1 1 [facility] for referral (narrative)No reason for referral information availableWMiami Valley Hospital Work Phone: Summary Purpose Family History Relationship Condition Age at Onset Recorded Date/T bam Unknown Family History?- Unknown August 082020 9:34pm Family History?Heart Disease Unknown August 08, 2020 9:34pm Family History?No pe rtinent history Unknown September 09, 2014 11:27am Additional Family History?reports a family history of diabetes Unknown November 14, 2014 8:08pm Additional Family History?reports a family history of diabetes Unknown March 22, 2016 5:19pm Relationship Condition Age at Onset Recorded Date/T bam Not Specified Cardiac disease Unknown Advance Directives Documents on File Type Date Recorded Patient Apprenticeship Representative Expl anation Advance Directive(s) 10/24/2019 3:38 PM Date Activated Date Inactivated Comments 08/23/2021 7:55 AM 09/13/2021 7:43 PM Question Answer Comments Full Code Order Discussed With: Patient Date Activated Date Inactivated Comments 10/01/2020 11:51 PM 08/21/2021 11:26 AM Latest Code Status on File Code Status Date Activated Date Inactivated Comments Full Code 08/23/2021 7:55 AM 09/13/2021 7:43 PM Full Code Order Discussed With: Patient Full Code 10/01/2020 11:51 PM 08/21/2021 11:26 AM Documents on File Type Date Recorded Patient Apprenticeship Representative Expl anation Advance Directive(s) 08/29/2021 6:53 PM Advance Directive(s) 08/22/2021 7:53 PM Advance Directive(s) 04/10/2020 4:06 PM Advance Directive(s) 12/17/2019 10:49 AM Advance Directive(s) 10/24/2019 3:38 PM Advance Directive(s) 10/17/2019 9:43 AM Advance Directive(s) 10/08/2019 7:18 AM Advance Directive(s) 09/04/2019 1:38 PM Advance Directive(s) 02/07/2016 12:11 AM Advance Directive Response Recorded Date/ Time Name of Medical Power of Cube Machine Tender eloina stephens e- ex August 12, 2021 1:39am Name of Medical Power of Cube Machine Tender Joseph Burrell August 18, 2021 11:56pm Advance Directives Yes March 22, 2016 4:03pm Living Will No September 17, 2021 5:48pm Power of Cube Machine Tender Yes September 17 5:48pm Advance Directive Response Recorded Date/ Time Name of Medical Power of Cube Machine Tender eloina stephens e- ex August 12, 2021 1:39am Name of Medical Power of Cube Machine Tender Joseph Burrell August 18, 2021 11:56pm Name of Medical Power of Cube Machine Tender joseph burrell September 17, 2021 5:48pm Advance Directives Yes March 22, 2016 4:03pm Living Will No October 08, 2021 2:20pm Power of Cube Machine Tender No October 08 2:20pm Documents on File Type Date Recorded Patient Apprenticeship Representative Expl anation Advance Directive(s) 08/29/2021 6:53 PM Advance Directive(s) 08/22/2021 7:53 PM Advance Directive(s) 04/10/2020 4:06 PM Advance Directive(s) 12/17/2019 10:49 AM Advance Directive(s) 10/24/2019 3:38 PM Advance Directive(s) 10/17/2019 9:43 AM Advance Directive(s) 10/08/2019 7:18 AM Advance Directive(s) 09/04/2019 1:38 PM Advance Directive(s) 02/07/2016 12:11 AM Latest Code Status on File Code Status Date Activated Date Inactivated Comments Full Code 08/23/2021 7:55 AM 09/13/2021 7:43 PM Full Code 10/01/2020 11:51 PM 08/21/2021 11:26 AM Advance Directive Response Recorded Date/ Time Name of Medical Power of Cube Machine Tender eloina stephens e- ex August 12, 2021 1:39am Name of Medical Power of Cube Machine Tender Joseph Burrell August 18, 2021 11:56pm Name of Medical Power of Cube Machine Tender joseph burrell September 17, 2021 5:48pm Advance Directives Yes March 22, 2016 4:03pm Living Will Yes November 25, 2021 5 :33pm Power of Cube Machine Tender Yes November 25, 2021 5:33pm Advance Directive Response Recorded Date/ Time Name of Medical Power of Cube Machine Tender eloina stephens e- ex August 12, 2021 1:39am Name of Medical Power of Cube Machine Tender Joseph Burrell August 18, 2021 11:56pm Name of Medical Power of Cube Machine Tender joseph burrell September 17, 2021 5:48pm Advance Directives Yes March 22, 2016 4:03pm Living Will Yes November 25, 2021 1 1:06pm Power of Cube Machine Tender No November 25, 2021 11:06pm Advance Directive Response Recorded Date/ Time Name of Medical Power of Cube Machine Tender Joseph Burrell August 18, 2021 11:56pm Name of Medical Power of Cube Machine Tender joseph burrell September 17, 2021 5:48pm Name of Medical Power of Cube Machine Tender MICHELLE RICHMOND November 25, 2021 5:33pm Advance Directives Yes March 22, 2016 4:03pm Living Will Yes November 25, 2021 1 1:06pm Power of Cube Machine Tender No November 25, 2021 11:06pm Advance Directive Response Recorded Date/ Time Name of Medical Power of Cube Machine Tender joseph burrell September 17, 2021 5:48pm Name of Medical Power of Cube Machine Tender MICHELLEADRIANA REEDON November 25, 2021 5:33pm Advance Directives Yes March 22, 2016 4:03pm Living Will Yes November 25, 2021 1 1:06pm Power of Cube Machine Tender No November 25, 2021 11:06pm Advance Directive Response Recorded Date/ Time Name of Medical Power of Cube Machine Tender MICHELLE RICHMOND November 25, 2021 5:33pm Advance Directives Yes March 22, 2016 4:03pm Living Will Yes November 25, 2021 1 1:06pm Power of Cube Machine Tender No November 25, 2021 11:06pm Advance Directive Response Recorded Date/ Time Name of Medical Power of Cube Machine Tender MICHELLE RICHMOND November 25, 2021 5:33pm Name of Medical Power of Cube Machine Tender recalled January 28, 2022 3:14pm Advance Directives Yes March 22, 2016 4:03pm Living Will Yes January 28 3:14pm Power of Cube Machine Tender Yes January 28 022 3:14pm Documents on File Type Date Recorded Patient Apprenticeship Representative Expl anation Advance Directive(s) 10/24/2019 3:38 PM Advance Directive Response Recorded Date/ Time Name of Medical Power of Cube Machine Tender MICHELLE RICHMOND November 25, 2021 5:33pm Name of Medical Power of Cube Machine Tender recalled January 28, 2022 3:14pm Advance Directives Yes March 22, 2016 4:03pm Living Will Yes March 02, 2022 3:17pm Power of Cube Machine Tender No February 3:17pm Advance Directive Response Recorded Date/ Time Name of Medical Power of Cube Machine Tender MICHELLE RICHMOND November 25, 2021 5:33pm Name of Medical Power of Cube Machine Tender recalled January 28, 2022 3:14pm Advance Directives Yes March 22, 2016 4:03pm Living Will No March 07, 2022 5:26pm Power of Cube Machine Tender No February 5:26pm Advance Directive Response Recorded Date/ Time Name of Medical Power of Cube Machine Tender MICHELLE RICHMOND November 25, 2021 5:33pm Name of Medical Power of Cube Machine Tender recalled January 28, 2022 3:14pm Advance Directives Yes March 22, 2016 4:03pm Living Will No March 08, 2022 8:17pm Power of Cube Machine Tender No February 8:17pm Advance Directive Response Recorded Date/ Time Advance Directives Yes March 22, 2016 3:03pm Living Will No March 08, 2022 7:17pm Power of Cube Machine Tender No February 7:17pm Advance Directive Response Recorded Date/ Time Advance Directives Yes March 22, 2016 4:03pm Living Will No October 21, 2022 6: 58pm Power of Cube Machine Tender No October 21, 2022 6:58pm Latest Code Status on File Code Status Date Activated Date Inactivated Comments Full Code 08/23/2021 7:55 AM 09/13/2021 7:43 PM Question Answer Comments Full Code Order Discussed With: Patient Code Status History Code Status Date Activated Date Inactivated Comments Full Code 10/01/2020 11:51 PM 08/21/2021 11:26 AM Latest Code Status on File Code Status Date Activated Date Inactivated Comments Full Code 08/23/2021 7:55 AM 09/13/2021 7:43 PM Question Answer Comments Full Code Order Discussed With: Patient Code Status History Code Status Date Activated Date Inactivated Comments Full Code 10/01/2020 11:51 PM 08/21/2021 11:26 AM Advance Directive Response Recorded Date/ Time Name of Medical Power of Cube Machine Tender JOSEPH Euceda December 31, 2022 3:19pm Advance Directives Yes March 22, 2016 4:03pm Living Will Yes December 31, 2022 3:19pm Power of Cube Machine Tender Yes December 31 3:19pm Advance Directive Response Recorded Date/ Time Name of Medical Power of Cube Machine Tender JOSEPH Euceda December 31, 2022 3:19pm Name of Medical Power of Cube Machine Tender Joseph February 17, 2023 11:06pm Advance Directives Yes March 22, 2016 4:03pm Living Will Yes February 17 11:06pm Power of Cube Machine Tender Yes February 17, 2023 11:06pm Advance Directive Response Recorded Date/ Time Name of Medical Power of Cube Machine Tender Joseph Burrell March 29, 2023 7:22pm Advance Directives Yes March 22, 2016 4:03pm Living Will No March 30 3:32pm Power of Cube Machine Tender No March 30, 2023 3:32pm Name of Medical Power of Cube Machine Tender JOSEPH Euceda December 31, 2022 3:19pm Name of Medical Power of Cube Machine Tender Joseph February 17, 2023 11:06pm Advance Directive Response Recorded Date/ Time Name of Medical Power of Cube Machine Tender Joseph Burrell March 29, 2023 7:22pm Advance Directives Yes March 22, 2016 4:03pm Living Will No March 30 9:04pm Power of Cube Machine Tender No March 30, 2023 9:04pm Name of Medical Power of Cube Machine Tender JOSEPH BURRELL- E X December 31, 2022 3:19pm Name of Medical Power of Cube Machine Tender Joseph February 17, 2023 11:06pm Advance Directive Response Recorded Date/ Time Name of Medical Power of Cube Machine Tender Joseph Burrell March 29, 2023 6:22pm Advance Directives Yes March 22, 2016 3:03pm Living Will No March 30 8:04pm Power of Cube Machine Tender No March 30, 2023 8:04pm Advance Directive Response Recorded Date/ Time Name of Medical Power of Cube Machine Tender Joseph Burrell March 29, 2023 6:22pm Name of Medical Power of Cube Machine Tender Joseph Burrell July 24, 2023 5:27pm Advance Directives Yes March 22, 2016 3:03pm Living Will Yes July 24 5:27pm Power of Cube Machine Tender Yes July 24, 2023 5:27pm Advance Directive Response Recorded Date/ Time Name of Medical Power of Cube Machine Tender Joseph Burrell July 24, 2023 9:55pm Advance Directives Yes March 22, 2016 3:03pm Living Will No July 30, 024 8:34pm Power of Cube Machine Tender No July 30, 2023 8:34pm Advance Directive Response Recorded Date/ Time Name of Medical Power of Cube Machine Tender Joseph Burrell July 24, 2023 9:55pm Name of Medical Power of Cube Machine Tender Nahed Roxy July 31, 2023 12:57am Advance Directives Yes March 22, 2016 3:03pm Living Will No July 31, 024 12:57am Power of Cube Machine Tender Yes July 31, 2023 12:57am Date Activated Date Inactivated Comments 08/23/2021 7:55 AM 09/13/2021 7:43 PM Question Answer Comments Full Code Order Discussed With: Patient Date Activated Date Inactivated Comments 10/01/2020 11:51 PM 08/21/2021 11:26 AM Advance Directive Response Recorded Date/ Time Name of Medical Power of Cube Machine Tender Joseph Burrell March 29, 2023 6:22pm Advance Directives Yes March 22, 2016 3:03pm Living Will No March 30 8:04pm Power of Cube Machine Tender No March 30, 2023 8:04pm Name of Medical Power of Cube Machine Tender Joseph February 17, 2023 10:06pm Advance Directive Response Recorded Date/ Time Living Will No August 25, 2024 4:43pm Power of Cube Machine Tender No August 25 4:43pm Advance Directives Yes March 22, 2016 4:03pm Advance Directive Response Recorded Date/ Time Living Will No August 25, 2024 7:21pm Power of Cube Machine Tender No August 25 7:21pm Advance Directives Yes March 22, 2016 4:03pm Advance Directive Response Recorded Date/ Time Living Will No August 25, 2024 7:21pm Do you have a Healthcare Power of Cube Machine Tender? 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 Operations during Hospitalization: 10/08/2019-Left common femoral endarterectomy with bovine patch, redo.Thrombectomy of the occluded Left RADHA and EIA.Left common and external iliac stents (Cast x 2), (Gene (more content not included)... Note HNO ID: [id number] Author: Bing Oden ([place]) Service: Vascular Surgery Author Type: Physician National Van Owner Operator Type: Discharge Summary Filed: 10/25/2019 4:58 PM Note Text: Attestation signed by Lesly Salvador at 10/30/2019 4:47 PM agree Department of Vascular Surgery Discharge Summary PATIENT NAME: Pedro Pablo Sierra ADMISSION DATE: 10/17/2019 DISCHARGE DATE: 10/25/2019 Attending Physician: Lesly Salvador Code Status: Not on file Primary Service: Vascular Surgery Admission Diagnosis: Left groin wound seroma and infection, status post revascularization of left leg. Discharge Diagnosis: Left groin wound seroma and infection, status post revascularization of left leg. Presumed [place]-Beau left iliac, profunda bypass infection. Reason for Hospitalization: pleasant 69-year-old gentleman, who has recently undergone com (more content not included)... Note HNO ID: [id number] Author: Luis Girard Service: Vascular Surgery Author Type: Nurse Practitioner Type: Discharge Summary Filed: 12/17/2019 5:52 PM Note Text: Attestation signed by Rob Stevens at 12/18/2019 8:07 AM [facility] STAFF PHYSICIAN NOTE OF PERSONAL INVOLVEMENT IN CARE I have reviewed the discharge summary obtained and documented by the resident and I personally participated in the echevarria components. I have discussed the case and management of the patient's care. The following comments revise or confirm relevant echevarria components of their note. Rob Stevens MD Staff, Vascular Surgery December 18, 2019 8:07 AM DISCHARGE NOTE (Patient Admitted Less than 48 Hours) SERVICE DATE: 12/17/2019 SERVICE TIME: 1700 12/17/2019 ADMISSION DATE: 12/17/2019 DISCHARGE DISPOSITION: [facility] Discharge Physical Exam: VITAL SIGNS: BP 154/ (more content not included)... Note HNO ID: [id number] Author: Nelson Schuster (Aa) Service: ? Author Type: Hard Metals Hand Engraver Type: Anesthesia Procedure Notes Filed: 10/08/2019 8:38 AM Note Text: ANESTHESIOLOGY PROCEDURE NOTE Airway General Information Procedure Start Time/Medication Administration: 10/08/2019 8:07 AM Patient location during procedure: ORTimeout Performed Pre-procedure: timeout performed Consent Obtained: Yes Staffing Anesthesiologist: Anabel HERNÁNDEZ: Lesly Schuster (Aa) Performed by: anesthesiologist and CAA Indications and Patient Condition Preoxygenated: yes Patient position: sniffing Manual In-Line Stabilization: Yes Difficult Mask: Yes Indications for airway management: anesthesia anesthesia circuit Method: asleep Cricoid Pressure: No Airway Accessory: oral airway Final Airway Details Final airway type: endotracheal airway Final Endotracheal Airway: ETT Successful intubation technique: direct laryngoscopy Endotracheal tube insertion site: oral Blade: Carie Blade size: #4 ETT size (mm): 7.5 Arlyn (more content not included)... Note HNO ID: [id number] Author: Nelson Schuster (Aa) Service: ? Author Type: Hard Metals Hand Engraver Type: Anesthesia Procedure Notes Filed: 10/08/2019 8:38 AM Note Text: ANESTHESIOLOGY PROCEDURE NOTE PIV General Information Procedure Start Time/Medication Administration: 10/08/2019 8:10 AM Patient Location: OR Staffing CAA: ANA PAULA Andrade (Aa) Performed by: CAA Preparation Sterility Preparation: hand hygiene performed prior to procedure, surgical cap used Site Prep: chlorhexidine Procedure Details Indication: need for IV access Needle Size/Type: 16 gauge angiocath Orientation: Left Location: Hand Imaging Guidance Used: No Appropriate fluid pocket was identified and marked: Yes SIGNATURE: ANA PAULA Nieto PATIENT NAME: Pedro Pablo Sierra DATE: October 08, 2019 TIME: 8:36 AM CSN: [id number] Note HNO ID: [id number] Author: Nelson Schuster (Aa) Service: ? Author Type: Hard Metals Hand Engraver Type: Anesthesia Procedure Notes Filed: 10/08/2019 8:39 AM Note Text: ANESTHESIOLOGY PROCEDURE NOTE A-Line General Information Procedure Start Time/Medication Administration: 10/08/2019 8:19 AM Patient location during procedure: OR Indication: continuous blood pressure monitoring and blood sampling needed Staffing Anesthesiologist: Anabel Lozano CAA: Lesly Schuster (Aa) Performed by: CAA Preparation Sterility Preparation: hand hygiene performed prior to procedure, surgical cap used, mask used, sterile drape used during line insertion, skin prep agent completely dried prior to procedure Site Prep: Chloraprep Procedure Details Catheter Size: 20 G Catheter Length: 5.25 in Micropuncture Kit Used: No Guidewire Used: Yes Guidewire Removed Intact: YesLaterality: right Site: radial artery Ultrasound Guided: NoLine Secured: tape Events Events: patient tolerated procedure well with no complications SIGNATURE (more content not included)... Note HNO ID: [id number] Author: ANA PAULA Sanchez (Aa) Service: ? Author Type: Hard Metals Hand Engraver Type: Anesthesia Procedure Notes Filed: 10/08/2019 9:16 AM Note Text: ANESTHESIOLOGY PROCEDURE NOTE Gastric Tube General Information Procedure Start Time/Medication Administration: 10/08/2019 8:10 AM Patient location during procedure: OR Indication: gastric decompression Staffing Anesthesiologist: Anabel Lozano Performed by: anesthesiologist Procedure Details Type: Orogastric tube Cortrak monitor used: No Size: 18 Fr cm Distance Advanced: 60 cm Initial Auscultation Appears Confirmatory: Yes Successful Placement: yes Post-Procedure Details SIGNATURE: ANA PAULA Andrade PATIENT NAME: Pedro Pablo Sierra DATE: October 08, 2019 TIME: 9:15 AM CSN: [id number] Note HNO ID: [id number] Author: Bing lucas (Res) Stephanie Service: Vascular Surgery Author Type: Resident Type: Brief Op Note Filed: 10/08/2019 4:12 PM Note Text: BRIEF OPERATIVE / PROCEDURE NOTE LOG ID: [id number] SURGERY/PROCEDURE DATE: 10/08/2019 INCISION/PROCEDURE START TIME: 8:53 AM INCISION CLOSE/PROCEDURE END TIME: 4:06 PM SURGEON(S)/PROCEDURALIST(S) AND BANK CREDIT CARD COLLECTION CLERK(S): Surgeon(s) and Role: * Ryan May MD - Primary * Elly (Res) Stephanie - Resident - Assisting No Additional Staff SURGERY/PROCEDURE(S): Left common TELEVISION REPORTER endarterectomy with bovine path Left profundoplasty Left iliac stenting X4 (I-Cast X2, Jessica X2) Multiple angiograms with angioplasty ANESTHESIA: General FINDINGS: Chronically occluded L iliac stent Good flow on completion angiogram ESTIMATED BLOOD LOSS: 500 mls SPECIMENS: None COMPLICATIONS: None PRE-OP/PRE-PROCEDURE DIAGNOSIS: chronically occluded L iliac artery POST-OP/POST-PROCEDURE DIAGNOSIS: Same as Preop Plan: - to SICU -NPO until tomorrow -ok for a (more content not included)... Note HNO ID: [id number] Author: Vasu Sequeira Service: ? Author Type: Anesthesiologist Type: Anesthesia Procedure Notes Filed: 10/10/2019 9:26 AM Note Text: ANESTHESIOLOGY PROCEDURE NOTE A-Line General Information Procedure Start Time/Medication Administration: 10/10/2019 9:15 AM Consent Obtained: Yes Patient identity confirmed: arm band Indication: continuous blood pressure monitoring Staffing Anesthesiologist: Joey Sequeira Performed by: anesthesiologist Preparation Sterility Preparation: hand hygiene performed prior to procedure, gown used during line insertion, surgical cap used, mask used, sterile drape used during line insertion, skin prep agent completely dried prior to procedure Site Prep: Chlorhexidine Procedure Details Catheter Size: 20 G Catheter Length: 5.25 in Micropuncture Kit Used: No Guidewire Used: Yes Guidewire Removed Intact: YesLaterality: left Site: radial artery Ultrasound Guided: NoLine Secured: tape and occlusive biodressing Events Events: patient tolerated procedur (more content not included)... Note HNO ID: [id number] Author: Vasu Sequeira Service: ? Author Type: Anesthesiologist Type: Anesthesia Procedure Notes Filed: 10/10/2019 9:26 AM Note Text: ANESTHESIOLOGY PROCEDURE NOTE PIV General Information Procedure Start Time/Medication Administration: 10/10/2019 9:20 AM Patient Location: OR Staffing Anesthesiologist: Joey Sequeira Performed by: anesthesiologist Preparation Sterility Preparation: hand hygiene performed prior to procedure Site Prep: chlorhexidine (or Alcohol Prep) Procedure Details Indication: need for IV access Needle Size/Type: 16 gauge angiocath Orientation: Right Location: Forearm Imaging Guidance Used: No SIGNATURE: Joey Sequeira MD PATIENT NAME: Pedro Pablo Sierra DATE: October 10, 2019 TIME: 9:26 AM CSN: [id number] Note HNO ID: [id number] Author: Huong Gonzalez Service: ? Author Type: Nurse Nurse Practical Type: Anesthesia Procedure Notes Filed: 10/10/2019 9:36 AM Note Text: ANESTHESIOLOGY PROCEDURE NOTE Airway General Information Procedure Start Time/Medication Administration: 10/10/2019 9:11 AM Patient location during procedure: OR Staffing Anesthesiologist: Joey Sequeira DRAMATIC TEACHER: Gini Gonzalez Performed by: SERGEY Indications and Patient Condition Preoxygenated: yes Patient position: sniffing Difficult Mask: No Indications for airway management: anesthesia anesthesia circuit Method: asleep Airway Accessory: oral airway Final Airway Details Final airway type: endotracheal airway Final Endotracheal Airway: ETT Cuffed: yes Successful intubation technique: direct laryngoscopy Endotracheal tube insertion site: oral Blade: Carie Blade size: #4 ETT size (mm): 7.5 Measured from: lips Placement verified by: capnometry Cormack-Lehane Classification: grade I - full view of glottis Number of attemp (more content not included)... Note HNO ID: [id number] Author: Bing lucas (Azalea) Stephanie Service: Vascular Surgery Author Type: Resident Type: Brief Op Note Filed: 10/10/2019 2:08 PM Note Text: BRIEF OPERATIVE / PROCEDURE NOTE LOG ID: [id number] Surgery/Procedure Date: 10/10/2019 Incision/Procedure Start Time: 9:52 AM Incision Close/Procedure End Time: 1:49 PM Surgeon(s)/Proceduralist(s) and National Van Owner Operator(s): Surgeon(s) and Role: * Ryan May MD - Primary * Elly (Binu Brown - Resident - Assisting No Additional Staff Procedure(s): Washout of left groin Left iliac, common femoral and profunda thrombectomy Left ilio-femoral ringed PTFE interposition graft (end-to-side) L iliofemoral stent extraction Multiple angiograms Anesthesia: General ASA Class: Findings: L iliac in-stent thrombosis, L TELEVISION REPORTER thrombosis, L profunda thrombosis Fresh hematoma, evacuated Likely external compression of L inguinal ligament onto L ileofemoral stent causing thrombosis Good 3 vessel runoff on completion angio Skin closed with vertic (more content not included)... Note HNO ID: [id number] Author: Nelson Locke Service: ? Author Type: Nurse Nurse Practical Type: Anesthesia Procedure Notes Filed: 10/18/2019 1:06 PM Note Text: ANESTHESIOLOGY PROCEDURE NOTE PIV General Information Procedure Start Time/Medication Administration: 10/18/2019 1:02 PM Staffing Anesthesiologist: Del Garner Performed by: anesthesiologist Preparation Sterility Preparation: hand hygiene performed prior to procedure, surgical cap used, mask used, sterile drape used during line insertion, skin prep agent completely dried prior to procedure Site Prep: Chloraprep Procedure Details Indication: need for IV access Needle Size/Type: 18 gauge angiocath Orientation: Right Location: Hand Imaging Guidance Used: No Appropriate fluid pocket was identified and marked: Yes SIGNATURE: Chrystal Locke APRN.CRNA PATIENT NAME: Pedro Pablo Sierra DATE: October 18, 2019 TIME: 1:05 PM CSN: [id number] Note HNO ID: [id number] Author: Nelson Locke Service: ? Author Type: Nurse Nurse Practical Type: Anesthesia Procedure Notes Filed: 10/18/2019 1:16 PM Note Text: ANESTHESIOLOGY PROCEDURE NOTE Airway General Information Procedure Start Time/Medication Administration: 10/18/2019 12:59 PM Patient location during procedure: ORTimeout Performed Pre-procedure: timeout performed Patient identity confirmed: arm band and care senior stereo compiler team lead Staffing Anesthesiologist: Del Garner DRAMATIC TEACHER: Chrystal (Liquid Chlorine Operator) Cornelia Performed by: DRAMATIC TEACHER Indications and Patient Condition Preoxygenated: yes Patient position: sniffing Manual In-Line Stabilization: No Difficult Mask: No Indications for airway management: anesthesia anesthesia circuit Method: asleep Cricoid Pressure: No Airway Accessory: oral airway (#4) Final Airway Details Final airway type: endotracheal airway Final Endotracheal Airway: ETT Cuffed: yes Successful intubation technique: direct laryngoscopy Endotracheal tube insertion site: oral Blade: Macin (more content not included)... Note HNO ID: [id number] Author: Veronika pressley (Binu Tompkins MD Service: Vascular Surgery Author Type: Resident Type: Brief Op Note Filed: 10/18/2019 3:40 PM Note Text: BRIEF OPERATIVE / PROCEDURE NOTE LOG ID: [id number] Surgery/Procedure Date: 10/18/2019 Incision/Procedure Start Time: 1:31 PM Incision Close/Procedure End Time: 3:10 PM Surgeon(s)/Proceduralist(s) and National Van Owner Operator(s): Surgeon(s) and Role: * Lesly Salvador - Primary * Ayad Tompkins MD - Resident - Assisting No Additional Staff Procedure(s): Left groin exploration, hematoma evacuation, debridement of soft tissues, washout; Sarotorius flap, wound vac placement. Anesthesia: General ASA Class: Findings: Serous fluid in superficial soft tissues followed by hematoma under femoral sheath that extended inferiorly and superiorly. Graft seen, without any issues Wound vac placed over sartorius flap and extends superiorly MAMIE drain in inferior tract Pulses: LLE: palpable DP, biphasic PT Medications: Antiplatelet: Yes - Medication: plav (more content not included)... Note HNO ID: [id number] Author: Luis Girard Service: Vascular Surgery Author Type: Nurse Practitioner Type: Procedures Filed: 10/21/2019 12:34 PM Note Text: BEDSIDE PROCEDURE NOTE PROCEDURE DATE: October 21, 2019 PROCEDURE START TIME: 1100 PRIMARY PROCEDURALIST: Roman Girard (KISHORE) BANK CREDIT CARD COLLECTION CLERK(S): Juliana LOPEZ) Dr. Lopez at bedside to assess wound during wound vac change. PROCEDURE: NEGATIVE PRESSURE WOUND THERAPY Total Number of Wounds: 1 Analgesia/Sedation: IVP Hydromorphone Indication/Wound Type(s):Surgical Site infection Complications of Surgically-Created Wound Location:left groin Wound Measurements: Length: 11 cm Width: 4 cm Depth: 2 cm No Debridement Wound Characteristics: Undermining: None Tunneling: Multiple instances, 1st instance: 5 cm, 1 o'clock position; 2.5cm, 2-4 o'clock position Tissue Viability: Viable 100 percent Necrosis: No Slough: No Hypergranular Tissue: No Fistula: None Drainage/ Exudate Present: Serosanguineous Drainage Amount: Moderate Debride (more content not included)... Note HNO ID: [id number] Author: Luis lizama (Ace) Era Service: Vascular Surgery Author Type: Nurse Practitioner Type: Procedures Filed: 10/23/2019 3:38 PM Note Text: BEDSIDE PROCEDURE NOTE PROCEDURE DATE: October 23, 2019 PROCEDURE START TIME: 1400 PRIMARY PROCEDURALIST: Roman Girard (KISHORE) BANK CREDIT CARD COLLECTION CLERK(S): Juliana LOPEZ) PROCEDURE: NEGATIVE PRESSURE WOUND THERAPY Total Number of Wounds: 1 Analgesia/Sedation: IVP Hydromorphone Indication/Wound Type(s):Surgical Site infection Complications of Surgically-Created Wound Location:left groin Wound Measurements: Length: 8 cm Width: 5 cm Depth: 2.5 cm No Debridement Wound Characteristics: Undermining: None Tunneling: Multiple instances, 1st instance: 4 cm, 1 o'clock position; 3cm, 2-4 o'clock position Tissue Viability: Viable 100 percent Necrosis: No Slough: No Hypergranular Tissue: No Fistula: None Drainage/ Exudate Present: Serosanguineous Drainage Amount: Moderate Debridement: Selective sharp debridement with removal of necrotic material j (more content not included)... Procedure Findings Note HNO ID: [id number] Author: Nelson Schuster (Aa) Service: ? Author Type: Hard Metals Hand Engraver Type: Anesthesia Procedure Notes Filed: 10/08/2019 8:38 AM Note Text: ANESTHESIOLOGY PROCEDURE NOTE Airway General Information Procedure Start Time/Medication Administration: 10/08/2019 8:07 AM Patient location during procedure: ORTimeout Performed Pre-procedure: timeout performed Consent Obtained: Yes Staffing Anesthesiologist: Anabel Lozano CAA: Lesly Schuster (Aa) Performed by: anesthesiologist and CAA Indications and Patient Condition Preoxygenated: yes Patient position: sniffing Manual In-Line Stabilization: Yes Difficult Mask: Yes Indications for airway management: anesthesia anesthesia circuit Method: asleep Cricoid Pressure: No Airway Accessory: oral airway Final Airway Details Final airway type: endotracheal airway Final Endotracheal Airway: ETT Successful intubation technique: direct laryngoscopy Endotracheal tube insertion site: oral Blade: Carie Blade size: #4 ETT size (mm): 7.5 Arlyn (more content not included)... Note HNO ID: [id number] Author: Nelson Schuster (Aa) Service: ? Author Type: Hard Metals Hand Engraver Type: Anesthesia Procedure Notes Filed: 10/08/2019 8:38 AM Note Text: ANESTHESIOLOGY PROCEDURE NOTE PIV General Information Procedure Start Time/Medication Administration: 10/08/2019 8:10 AM Patient Location: OR Staffing CAA: ANA PAULA Andrade (Aa) Performed by: EDGAR Preparation Sterility Preparation: hand hygiene performed prior to procedure, surgical cap used Site Prep: chlorhexidine Procedure Details Indication: need for IV access Needle Size/Type: 16 gauge angiocath Orientation: Left Location: Hand Imaging Guidance Used: No Appropriate fluid pocket was identified and marked: Yes SIGNATURE: ANA PAULA Nieto PATIENT NAME: Pedro Pablo Sierra DATE: October 08, 2019 TIME: 8:36 AM CSN: [id number] Note HNO ID: [id number] Author: Nelson Schuster (Aa) Service: ? Author Type: Hard Metals Hand Engraver Type: Anesthesia Procedure Notes Filed: 10/08/2019 8:39 AM Note Text: ANESTHESIOLOGY PROCEDURE NOTE A-Line General Information Procedure Start Time/Medication Administration: 10/08/2019 8:19 AM Patient location during procedure: OR Indication: continuous blood pressure monitoring and blood sampling needed Staffing Anesthesiologist: Anabel Lozano CAA: Lesly Schuster (Aa) Performed by: EDGAR Preparation Sterility Preparation: hand hygiene performed prior to procedure, surgical cap used, mask used, sterile drape used during line insertion, skin prep agent completely dried prior to procedure Site Prep: Chloraprep Procedure Details Catheter Size: 20 G Catheter Length: 5.25 in Micropuncture Kit Used: No Guidewire Used: Yes Guidewire Removed Intact: YesLaterality: right Site: radial artery Ultrasound Guided: NoLine Secured: tape Events Events: patient tolerated procedure well with no complications SIGNATURE (more content not included)... Note HNO ID: [id number] Author: Luis Naidu) ANA PAULA Alejandro Service: ? Author Type: Hard Metals Hand Engraver Type: Anesthesia Procedure Notes Filed: 10/08/2019 9:16 AM Note Text: ANESTHESIOLOGY PROCEDURE NOTE Gastric Tube General Information Procedure Start Time/Medication Administration: 10/08/2019 8:10 AM Patient location during procedure: OR Indication: gastric decompression Staffing Anesthesiologist: Anabel Lozano Performed by: anesthesiologist Procedure Details Type: Orogastric tube Cortrak monitor used: No Size: 18 Fr cm Distance Advanced: 60 cm Initial Auscultation Appears Confirmatory: Yes Successful Placement: yes Post-Procedure Details SIGNATURE: ANA PAULA Andrade PATIENT NAME: Pedro Pablo Sierra DATE: October 08, 2019 TIME: 9:15 AM CSN: [id number] Note HNO ID: [id number] Author: Bing lucas (Res) Stephanie Service: Vascular Surgery Author Type: Resident Type: Brief Op Note Filed: 10/08/2019 4:12 PM Note Text: BRIEF OPERATIVE / PROCEDURE NOTE LOG ID: [id number] SURGERY/PROCEDURE DATE: 10/08/2019 INCISION/PROCEDURE START TIME: 8:53 AM INCISION CLOSE/PROCEDURE END TIME: 4:06 PM SURGEON(S)/PROCEDURALIST(S) AND BANK CREDIT CARD COLLECTION CLERK(S): Surgeon(s) and Role: * Ryan May MD - Primary * Elly (Azalea) Stephanie - Resident - Assisting No Additional Staff SURGERY/PROCEDURE(S): Left common TELEVISION REPORTER endarterectomy with bovine path Left profundoplasty Left iliac stenting X4 (I-Cast X2, Jessica X2) Multiple angiograms with angioplasty ANESTHESIA: General FINDINGS: Chronically occluded L iliac stent Good flow on completion angiogram ESTIMATED BLOOD LOSS: 500 mls SPECIMENS: None COMPLICATIONS: None PRE-OP/PRE-PROCEDURE DIAGNOSIS: chronically occluded L iliac artery POST-OP/POST-PROCEDURE DIAGNOSIS: Same as Preop Plan: - to SICU -NPO until tomorrow -ok for a (more content not included)... Note HNO ID: [id number] Author: Vasu Sequeira Service: ? Author Type: Anesthesiologist Type: Anesthesia Procedure Notes Filed: 10/10/2019 9:26 AM Note Text: ANESTHESIOLOGY PROCEDURE NOTE A-Line General Information Procedure Start Time/Medication Administration: 10/10/2019 9:15 AM Consent Obtained: Yes Patient identity confirmed: arm band Indication: continuous blood pressure monitoring Staffing Anesthesiologist: Joey Sequeira Performed by: anesthesiologist Preparation Sterility Preparation: hand hygiene performed prior to procedure, gown used during line insertion, surgical cap used, mask used, sterile drape used during line insertion, skin prep agent completely dried prior to procedure Site Prep: Chlorhexidine Procedure Details Catheter Size: 20 G Catheter Length: 5.25 in Micropuncture Kit Used: No Guidewire Used: Yes Guidewire Removed Intact: YesLaterality: left Site: radial artery Ultrasound Guided: NoLine Secured: tape and occlusive biodressing Events Events: patient tolerated procedur (more content not included)... Note HNO ID: [id number] Author: Vasu Sequeira Service: ? Author Type: Anesthesiologist Type: Anesthesia Procedure Notes Filed: 10/10/2019 9:26 AM Note Text: ANESTHESIOLOGY PROCEDURE NOTE PIV General Information Procedure Start Time/Medication Administration: 10/10/2019 9:20 AM Patient Location: OR Staffing Anesthesiologist: Joey Sequeira Performed by: anesthesiologist Preparation Sterility Preparation: hand hygiene performed prior to procedure Site Prep: chlorhexidine (or Alcohol Prep) Procedure Details Indication: need for IV access Needle Size/Type: 16 gauge angiocath Orientation: Right Location: Forearm Imaging Guidance Used: No SIGNATURE: Joey Sequeira MD PATIENT NAME: Pedro Pablo Sierra DATE: October 10, 2019 TIME: 9:26 AM CSN: [id number] Note HNO ID: [id number] Author: Huong Gonzalez Service: ? Author Type: Nurse Nurse Practical Type: Anesthesia Procedure Notes Filed: 10/10/2019 9:36 AM Note Text: ANESTHESIOLOGY PROCEDURE NOTE Airway General Information Procedure Start Time/Medication Administration: 10/10/2019 9:11 AM Patient location during procedure: OR Staffing Anesthesiologist: Joey Sequeira DRAMATIC TEACHER: Gini Gonzalez Performed by: SERGEY Indications and Patient Condition Preoxygenated: yes Patient position: sniffing Difficult Mask: No Indications for airway management: anesthesia anesthesia circuit Method: asleep Airway Accessory: oral airway Final Airway Details Final airway type: endotracheal airway Final Endotracheal Airway: ETT Cuffed: yes Successful intubation technique: direct laryngoscopy Endotracheal tube insertion site: oral Blade: Carie Blade size: #4 ETT size (mm): 7.5 Measured from: lips Placement verified by: capnometry Cormack-Lehane Classification: grade I - full view of glottis Number of attemp (more content not included)... Note HNO ID: [id number] Author: Bing lucas (Res) Stephanie Service: Vascular Surgery Author Type: Resident Type: Brief Op Note Filed: 10/10/2019 2:08 PM Note Text: BRIEF OPERATIVE / PROCEDURE NOTE LOG ID: [id number] Surgery/Procedure Date: 10/10/2019 Incision/Procedure Start Time: 9:52 AM Incision Close/Procedure End Time: 1:49 PM Surgeon(s)/Proceduralist(s) and National Van Owner Operator(s): Surgeon(s) and Role: * Ryan May MD - Primary * Elly ([facility]) Stephanie - Resident - Assisting No Additional Staff Procedure(s): Washout of left groin Left iliac, common femoral and profunda thrombectomy Left ilio-femoral ringed PTFE interposition graft (end-to-side) L iliofemoral stent extraction Multiple angiograms Anesthesia: General ASA Class: Findings: L iliac in-stent thrombosis, L TELEVISION REPORTER thrombosis, L profunda thrombosis Fresh hematoma, evacuated Likely external compression of L inguinal ligament onto L ileofemoral stent causing thrombosis Good 3 vessel runoff on completion angio Skin closed with vertic (more content not included)... Note HNO ID: [id number] Author: Nelson scott (Sergey) Cornelia Service: ? Author Type: Nurse Nurse Practical Type: Anesthesia Procedure Notes Filed: 10/18/2019 1:06 PM Note Text: ANESTHESIOLOGY PROCEDURE NOTE PIV General Information Procedure Start Time/Medication Administration: 10/18/2019 1:02 PM Staffing Anesthesiologist: Del Garner Performed by: anesthesiologist Preparation Sterility Preparation: hand hygiene performed prior to procedure, surgical cap used, mask used, sterile drape used during line insertion, skin prep agent completely dried prior to procedure Site Prep: Chloraprep Procedure Details Indication: need for IV access Needle Size/Type: 18 gauge angiocath Orientation: Right Location: Hand Imaging Guidance Used: No Appropriate fluid pocket was identified and marked: Yes SIGNATURE: Chrystal Locke, CHARLES.SERGEY PATIENT NAME: Pedro Pablo Sierra DATE: October 18, 2019 TIME: 1:05 PM CSN: [id number] Note HNO ID: [id number] Author: Nelson Locke Service: ? Author Type: Nurse Nurse Practical Type: Anesthesia Procedure Notes Filed: 10/18/2019 1:16 PM Note Text: ANESTHESIOLOGY PROCEDURE NOTE Airway General Information Procedure Start Time/Medication Administration: 10/18/2019 12:59 PM Patient location during procedure: ORTimeout Performed Pre-procedure: timeout performed Patient identity confirmed: arm band and care senior stereo compiler team lead Staffing Anesthesiologist: Del Garner DRAMATIC TEACHER: Chrystal Locke Performed by: SERGEY Indications and Patient Condition Preoxygenated: yes Patient position: sniffing Manual In-Line Stabilization: No Difficult Mask: No Indications for airway management: anesthesia anesthesia circuit Method: asleep Cricoid Pressure: No Airway Accessory: oral airway (#4) Final Airway Details Final airway type: endotracheal airway Final Endotracheal Airway: ETT Cuffed: yes Successful intubation technique: direct laryngoscopy Endotracheal tube insertion site: oral Blade: Macin (more content not included)... Note HNO ID: [id number] Author: Veronika Tompkins MD Service: Vascular Surgery Author Type: Resident Type: Brief Op Note Filed: 10/18/2019 3:40 PM Note Text: BRIEF OPERATIVE / PROCEDURE NOTE LOG ID: [id number] Surgery/Procedure Date: 10/18/2019 Incision/Procedure Start Time: 1:31 PM Incision Close/Procedure End Time: 3:10 PM Surgeon(s)/Proceduralist(s) and National Van Owner Operator(s): Surgeon(s) and Role: * Lesly Salvador - Primary * Ayad Tompkins MD - Resident - Assisting No Additional Staff Procedure(s): Left groin exploration, hematoma evacuation, debridement of soft tissues, washout; Sarotorius flap, wound vac placement. Anesthesia: General ASA Class: Findings: Serous fluid in superficial soft tissues followed by hematoma under femoral sheath that extended inferiorly and superiorly. Graft seen, without any issues Wound vac placed over sartorius flap and extends superiorly MAMIE drain in inferior tract Pulses: LLE: palpable DP, biphasic PT Medications: Antiplatelet: Yes - Medication: plav (more content not included)... Note HNO ID: [id number] Author: Luis Girard Service: Vascular Surgery Author Type: Nurse Practitioner Type: Procedures Filed: 10/21/2019 12:34 PM Note Text: BEDSIDE PROCEDURE NOTE PROCEDURE DATE: October 21, 2019 PROCEDURE START TIME: 1100 PRIMARY PROCEDURALIST: Roman Girard (KISHORE) BANK CREDIT CARD COLLECTION CLERK(S): Juliana LOPEZ) Dr. Lopez at bedside to assess wound during wound vac change. PROCEDURE: NEGATIVE PRESSURE WOUND THERAPY Total Number of Wounds: 1 Analgesia/Sedation: IVP Hydromorphone Indication/Wound Type(s):Surgical Site infection Complications of Surgically-Created Wound Location:left groin Wound Measurements: Length: 11 cm Width: 4 cm Depth: 2 cm No Debridement Wound Characteristics: Undermining: None Tunneling: Multiple instances, 1st instance: 5 cm, 1 o'clock position; 2.5cm, 2-4 o'clock position Tissue Viability: Viable 100 percent Necrosis: No Slough: No Hypergranular Tissue: No Fistula: None Drainage/ Exudate Present: Serosanguineous Drainage Amount: Moderate Debride (more content not included)... Note HNO ID: [id number] Author: Luis Girard Service: Vascular Surgery Author Type: Nurse Practitioner Type: Procedures Filed: 10/23/2019 3:38 PM Note Text: BEDSIDE PROCEDURE NOTE PROCEDURE DATE: October 23, 2019 PROCEDURE START TIME: 1400 PRIMARY PROCEDURALIST: Roman Girard (KISHORE) BANK CREDIT CARD COLLECTION CLERK(S): Juliana Oden PA-C PROCEDURE: NEGATIVE PRESSURE WOUND THERAPY Total Number of Wounds: 1 Analgesia/Sedation: IVP Hydromorphone Indication/Wound Type(s):Surgical Site infection Complications of Surgically-Created Wound Location:left groin Wound Measurements: Length: 8 cm Width: 5 cm Depth: 2.5 cm No Debridement Wound Characteristics: Undermining: None Tunneling: Multiple instances, 1st instance: 4 cm, 1 o'clock position; 3cm, 2-4 o'clock position Tissue Viability: Viable 100 percent Necrosis: No Slough: No Hypergranular Tissue: No Fistula: None Drainage/ Exudate Present: Serosanguineous Drainage Amount: Moderate Debridement: Selective sharp debridement with removal of necrotic material j (more content not included)... Chief Complaint and Reason for Visit Chief Complaint BILATERAL CARPAL YANE JESUS, PERIPHERAL VASCULAR DISEA BILATERAL CARPAL TUNNEL, PERIPHERAL VASCULAR DISEA CUTS TO HAND BURN nausea/vomiting CHOLECYSTITIS abd pain CHOLECYSTITIS CHOLECYSTITIS CHOLECYSTITIS CHOLECYSTITIS CHOLECYSTITIS CHOLECYSTITIS CHOLECYSTITIS CHOLECYSTITIS ABD PAIN Reason for Visit Abdominal pain Acute cholecystitis Biliary colic Biliary sludge determined by ultrasound Current use of anticoagulant therapy Transaminitis 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 Hypertension Elevated blood pressure reading in office with diagnosis of hypertension Preop cardiovascular exam Chief Complaint BURN nausea/vomiting CHOLECYSTITIS abd pain CHOLECYSTITIS CHOLECYSTITIS CHOLECYSTITIS CHOLECYSTITIS CHOLECYSTITIS CHOLECYSTITIS CHOLECYSTITIS CHOLECYSTITIS ABD PAIN HTN Reason for Visit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 information to criminally investigate or prosecute any alcohol or drug abuse patient.[facility] CenterIn the event this information is protected by the Federal Confidentiality of Alcohol and Drug Abuse Patient Records regulations: The Federal rules restrict any use of the information to criminally investigate or prosecute any alcohol or drug abuse patient.[facility] CenterIn the event this information is protected by the Federal Confidentiality of Alcohol and Drug Abuse Patient Records regulations: The Federal rules restrict any use of the information to criminally investigate or prosecute any alcohol or drug abuse patient.[facility] CenterIn the event this information is protected by the Federal Confidentiality of Alcohol and Drug Abuse Patient Records regulations: The Federal rules restrict any use of the information to criminally investigate or prosecute any alcohol or drug abuse patient.[facility] CenterIn the event this information is protected by the Federal Confidentiality of Alcohol and Drug Abuse Patient Records regulations: The Federal rules restrict any use of the information to criminally investigate or prosecute any alcohol or drug abuse patient.[facility] CenterIn the event this information is protected by the Federal Confidentiality of Alcohol and Drug Abuse Patient Records regulations: The Federal rules restrict any use of the information to criminally investigate or prosecute any alcohol or drug abuse patient.[facility] CenterIn the event this information is protected by the Federal Confidentiality of Alcohol and Drug Abuse Patient Records regulations: The Federal rules restrict any use of the information to criminally investigate or prosecute any alcohol or drug abuse patient.[facility] CenterIn the event this information is protected by the Federal Confidentiality of Alcohol and Drug Abuse Patient Records regulations: The Federal rules restrict any use of the information to criminally investigate or prosecute any alcohol or drug abuse patient.[facility] CenterIn the event this information is protected by the Federal Confidentiality of Alcohol and Drug Abuse Patient Records regulations: The Federal rules restrict any use of the information to criminally investigate or prosecute any alcohol or drug abuse patient.[facility] CenterIn the event this information is protected by the Federal Confidentiality of Alcohol and Drug Abuse Patient Records regulations: The Federal rules restrict any use of the information to criminally investigate or prosecute any alcohol or drug abuse patient.[facility] CenterIn the event this information is protected by the Federal Confidentiality of Alcohol and Drug Abuse Patient Records regulations: The Federal rules restrict any use of the information to criminally investigate or prosecute any alcohol or drug abuse patient.[facility] CenterIn the event this information is protected by the Federal Confidentiality of Alcohol and Drug Abuse Patient Records regulations: The Federal rules restrict any use of the information to criminally investigate or prosecute any alcohol or drug abuse patient.[facility] CenterIn the event this information is protected by the Federal Confidentiality of Alcohol and Drug Abuse Patient Records regulations: The Federal rules restrict any use of the information to criminally investigate or prosecute any alcohol or drug abuse patient.[facility] CenterIn the event this information is protected by the Federal Confidentiality of Alcohol and Drug Abuse Patient Records regulations: The Federal rules restrict any use of the information to criminally investigate or prosecute any alcohol or drug abuse patient.[facility] CenterIn the event this information is protected by the Federal Confidentiality of Alcohol and Drug Abuse Patient Records regulations: The Federal rules restrict any use of the information to criminally investigate or prosecute any alcohol or drug abuse patient.[facility] CenterIn the event this information is protected by the Federal Confidentiality of Alcohol and Drug Abuse Patient Records regulations: The Federal rules restrict any use of the information to criminally investigate or prosecute any alcohol or drug abuse patient.[facility] CenterIn the event this information is protected by the Federal Confidentiality of Alcohol and Drug Abuse Patient Records regulations: The Federal rules restrict any use of the information to criminally investigate or prosecute any alcohol or drug abuse patient.[facility] CenterIn the event this information is protected by the Federal Confidentiality of Alcohol and Drug Abuse Patient Records regulations: The Federal rules restrict any use of the information to criminally investigate or prosecute any alcohol or drug abuse patient.[facility] CenterIn the event this information is protected by the Federal Confidentiality of Alcohol and Drug Abuse Patient Records regulations: The Federal rules restrict any use of the information to criminally investigate or prosecute any alcohol or drug abuse patient.[facility] CenterIn the event this information is protected by the Federal Confidentiality of Alcohol and Drug Abuse Patient Records regulations: The Federal rules restrict any use of the information to criminally investigate or prosecute any alcohol or drug abuse patient.[facility] CenterIn the event this information is protected by the Federal Confidentiality of Alcohol and Drug Abuse Patient Records regulations: The Federal rules restrict any use of the information to criminally investigate or prosecute any alcohol or drug abuse patient.[facility] CenterIn the event this information is protected by the Federal Confidentiality of Alcohol and Drug Abuse Patient Records regulations: The Federal rules restrict any use of the information to criminally investigate or prosecute any alcohol or drug abuse patient.[facility] CenterIn the event this information is protected by the Federal Confidentiality of Alcohol and Drug Abuse Patient Records regulations: The Federal rules restrict any use of the information to criminally investigate or prosecute any alcohol or drug abuse patient.[facility] CenterIn the event this information is protected by the Federal Confidentiality of Alcohol and Drug Abuse Patient Records regulations: The Federal rules restrict any use of the information to criminally investigate or prosecute any alcohol or drug abuse patient.[facility] CenterIn the event this information is protected by the Federal Confidentiality of Alcohol and Drug Abuse Patient Records regulations: The Federal rules restrict any use of the information to criminally investigate or prosecute any alcohol or drug abuse patient.[facility] CenterIn the event this information is protected by the Federal Confidentiality of Alcohol and Drug Abuse Patient Records regulations: The Federal rules restrict any use of the information to criminally investigate or prosecute any alcohol or drug abuse patient.[facility] CenterIn the event this information is protected by the Federal Confidentiality of Alcohol and Drug Abuse Patient Records regulations: The Federal rules restrict any use of the information to criminally investigate or prosecute any alcohol or drug abuse patient.[facility] CenterIn the event this information is protected by the Federal Confidentiality of Alcohol and Drug Abuse Patient Records regulations: The Federal rules restrict any use of the information to criminally investigate or prosecute any alcohol or drug abuse patient.[facility] CenterIn the event this information is protected by the Federal Confidentiality of Alcohol and Drug Abuse Patient Records regulations: The Federal rules restrict any use of the information to criminally investigate or prosecute any alcohol or drug abuse patient.[facility] CenterIn the event this information is protected by the Federal Confidentiality of Alcohol and Drug Abuse Patient Records regulations: The Federal rules restrict any use of the information to criminally investigate or prosecute any alcohol or drug abuse patient.[facility] CenterIn the event this information is protected by the Federal Confidentiality of Alcohol and Drug Abuse Patient Records regulations: The Federal rules restrict any use of the information to criminally investigate or prosecute any alcohol or drug abuse patient.[facility] CenterIn the event this information is protected by the Federal Confidentiality of Alcohol and Drug Abuse Patient Records regulations: The Federal rules restrict any use of the information to criminally investigate or prosecute any alcohol or drug abuse patient.[facility] CenterIn the event this information is protected by the Federal Confidentiality of Alcohol and Drug Abuse Patient Records regulations: The Federal rules restrict any use of the information to criminally investigate or prosecute any alcohol or drug abuse patient.[facility] CenterIn the event this information is protected by the Federal Confidentiality of Alcohol and Drug Abuse Patient Records regulations: The Federal rules restrict any use of the information to criminally investigate or prosecute any alcohol or drug abuse patient.[facility] CenterIn the event this information is protected by the Federal Confidentiality of Alcohol and Drug Abuse Patient Records regulations: The Federal rules restrict any use of the information to criminally investigate or prosecute any alcohol or drug abuse patient.[facility] CenterIn the event this information is protected by the Federal Confidentiality of Alcohol and Drug Abuse Patient Records regulations: The Federal rules restrict any use of the information to criminally investigate or prosecute any alcohol or drug abuse patient.[facility] CenterIn the event this information is protected by the Federal Confidentiality of Alcohol and Drug Abuse Patient Records regulations: The Federal rules restrict any use of the information to criminally investigate or prosecute any alcohol or drug abuse patient.[facility] CenterIn the event this information is protected by the Federal Confidentiality of Alcohol and Drug Abuse Patient Records regulations: The Federal rules restrict any use of the information to criminally investigate or prosecute any alcohol or drug abuse patient.[facility] CenterIn the event this information is protected by the Federal Confidentiality of Alcohol and Drug Abuse Patient Records regulations: The Federal rules restrict any use of the information to criminally investigate or prosecute any alcohol or drug abuse patient.[facility] CenterIn the event this information is protected by the Federal Confidentiality of Alcohol and Drug Abuse Patient Records regulations: The Federal rules restrict any use of the information to criminally investigate or prosecute any alcohol or drug abuse patient.[facility] CenterIn the event this information is protected by the Federal Confidentiality of Alcohol and Drug Abuse Patient Records regulations: The Federal rules restrict any use of the information to criminally investigate or prosecute any alcohol or drug abuse patient.[facility] CenterIn the event this information is protected by the Federal Confidentiality of Alcohol and Drug Abuse Patient Records regulations: The Federal rules restrict any use of the information to criminally investigate or prosecute any alcohol or drug abuse patient.[facility] CenterIn the event this information is protected by the Federal Confidentiality of Alcohol and Drug Abuse Patient Records regulations: The Federal rules restrict any use of the information to criminally investigate or prosecute any alcohol or drug abuse patient.[facility] CenterIn the event this information is protected by the Federal Confidentiality of Alcohol and Drug Abuse Patient Records regulations: The Federal rules restrict any use of the information to criminally investigate or prosecute any alcohol or drug abuse patient.[facility] CenterIn the event this information is protected by the Federal Confidentiality of Alcohol and Drug Abuse Patient Records regulations: The Federal rules restrict any use of the information to criminally investigate or prosecute any alcohol or drug abuse patient.[facility] CenterIn the event this information is protected by the Federal Confidentiality of Alcohol and Drug Abuse Patient Records regulations: The Federal rules restrict any use of the information to criminally investigate or prosecute any alcohol or drug abuse patient.[facility] CenterIn the event this information is protected by the Federal Confidentiality of Alcohol and Drug Abuse Patient Records regulations: The Federal rules restrict any use of the information to criminally investigate or prosecute any alcohol or drug abuse patient.[facility] CenterIn the event this information is protected by the Federal Confidentiality of Alcohol and Drug Abuse Patient Records regulations: The Federal rules restrict any use of the information to criminally investigate or prosecute any alcohol or drug abuse patient.[facility] CenterIn the event this information is protected by the Federal Confidentiality of Alcohol and Drug Abuse Patient Records regulations: The Federal rules restrict any use of the information to criminally investigate or prosecute any alcohol or drug abuse patient.[facility] CenterIn the event this information is protected by the Federal Confidentiality of Alcohol and Drug Abuse Patient Records regulations: The Federal rules restrict any use of the information to criminally investigate or prosecute any alcohol or drug abuse patient.[facility] CenterIn the event this information is protected by the Federal Confidentiality of Alcohol and Drug Abuse Patient Records regulations: The Federal rules restrict any use of the information to criminally investigate or prosecute any alcohol or drug abuse patient.[facility] CenterIn the event this information is protected by the Federal Confidentiality of Alcohol and Drug Abuse Patient Records regulations: The Federal rules restrict any use of the information to criminally investigate or prosecute any alcohol or drug abuse patient.[facility] CenterIn the event this information is protected by the Federal Confidentiality of Alcohol and Drug Abuse Patient Records regulations: The Federal rules restrict any use of the information to criminally investigate or prosecute any alcohol or drug abuse patient.[facility] CenterIn the event this information is protected by the Federal Confidentiality of Alcohol and Drug Abuse Patient Records regulations: The Federal rules restrict any use of the information to criminally investigate or prosecute any alcohol or drug abuse patient.[facility] CenterIn the event this information is protected by the Federal Confidentiality of Alcohol and Drug Abuse Patient Records regulations: The Federal rules restrict any use of the information to criminally investigate or prosecute any alcohol or drug abuse patient.[facility] CenterIn the event this information is protected by the Federal Confidentiality of Alcohol and Drug Abuse Patient Records regulations: The Federal rules restrict any use of the information to criminally investigate or prosecute any alcohol or drug abuse patient.[facility] CenterIn the event this information is protected by the Federal Confidentiality of Alcohol and Drug Abuse Patient Records regulations: The Federal rules restrict any use of the information to criminally investigate or prosecute any alcohol or drug abuse patient.[facility] CenterIn the event this information is protected by the Federal Confidentiality of Alcohol and Drug Abuse Patient Records regulations: The Federal rules restrict any use of the information to criminally investigate or prosecute any alcohol or drug abuse patient.[facility] CenterIn the event this information is protected by the Federal Confidentiality of Alcohol and Drug Abuse Patient Records regulations: The Federal rules restrict any use of the information to criminally investigate or prosecute any alcohol or drug abuse patient.[facility] CenterIn the event this information is protected by the Federal Confidentiality of Alcohol and Drug Abuse Patient Records regulations: The Federal rules restrict any use of the information to criminally investigate or prosecute any alcohol or drug abuse patient.[facility] CenterIn the event this information is protected by the Federal Confidentiality of Alcohol and Drug Abuse Patient Records regulations: The Federal rules restrict any use of the information to criminally investigate or prosecute any alcohol or drug abuse patient.[facility] CenterIn the event this information is protected by the Federal Confidentiality of Alcohol and Drug Abuse Patient Records regulations: The Federal rules restrict any use of the information to criminally investigate or prosecute any alcohol or drug abuse patient.[facility] CenterIn the event this information is protected by the Federal Confidentiality of Alcohol and Drug Abuse Patient Records regulations: The Federal rules restrict any use of the information to criminally investigate or prosecute any alcohol or drug abuse patient.[facility] CenterIn the event this information is protected by the Federal Confidentiality of Alcohol and Drug Abuse Patient Records regulations: The Federal rules restrict any use of the information to criminally investigate or prosecute any alcohol or drug abuse patient.[facility] CenterIn the event this information is protected by the Federal Confidentiality of Alcohol and Drug Abuse Patient Records regulations: The Federal rules restrict any use of the information to criminally investigate or prosecute any alcohol or drug abuse patient.[facility] CenterIn the event this information is protected by the Federal Confidentiality of Alcohol and Drug Abuse Patient Records regulations: The Federal rules restrict any use of the information to criminally investigate or prosecute any alcohol or drug abuse patient.[facility] CenterIn the event this information is protected by the Federal Confidentiality of Alcohol and Drug Abuse Patient Records regulations: The Federal rules restrict any use of the information to criminally investigate or prosecute any alcohol or drug abuse patient.[facility] CenterIn the event this information is protected by the Federal Confidentiality of Alcohol and Drug Abuse Patient Records regulations: The Federal rules restrict any use of the information to criminally investigate or prosecute any alcohol or drug abuse patient.[facility] CenterIn the event this information is protected by the Federal Confidentiality of Alcohol and Drug Abuse Patient Records regulations: The Federal rules restrict any use of the information to criminally investigate or prosecute any alcohol or drug abuse patient.[facility] CenterIn the event this information is protected by the Federal Confidentiality of Alcohol and Drug Abuse Patient Records regulations: The Federal rules restrict any use of the information to criminally investigate or prosecute any alcohol or drug abuse patient.[facility] CenterIn the event this information is protected by the Federal Confidentiality of Alcohol and Drug Abuse Patient Records regulations: The Federal rules restrict any use of the information to criminally investigate or prosecute any alcohol or drug abuse patient.[facility] CenterIn the event this information is protected by the Federal Confidentiality of Alcohol and Drug Abuse Patient Records regulations: The Federal rules restrict any use of the information to criminally investigate or prosecute any alcohol or drug abuse patient.[facility] CenterIn the event this information is protected by the Federal Confidentiality of Alcohol and Drug Abuse Patient Records regulations: The Federal rules restrict any use of the information to criminally investigate or prosecute any alcohol or drug abuse patient.[facility] CenterIn the event this information is protected by the Federal Confidentiality of Alcohol and Drug Abuse Patient Records regulations: The Federal rules restrict any use of the information to criminally investigate or prosecute any alcohol or drug abuse patient.[facility] CenterIn the event this information is protected by the Federal Confidentiality of Alcohol and Drug Abuse Patient Records regulations: The Federal rules restrict any use of the information to criminally investigate or prosecute any alcohol or drug abuse patient.[facility] CenterIn the event this information is protected by the Federal Confidentiality of Alcohol and Drug Abuse Patient Records regulations: The Federal rules restrict any use of the information to criminally investigate or prosecute any alcohol or drug abuse patient.[facility] CenterIn the event this information is protected by the Federal Confidentiality of Alcohol and Drug Abuse Patient Records regulations: The Federal rules restrict any use of the information to criminally investigate or prosecute any alcohol or drug abuse patient.[facility] CenterIn the event this information is protected by the Federal Confidentiality of Alcohol and Drug Abuse Patient Records regulations: The Federal rules restrict any use of the information to criminally investigate or prosecute any alcohol or drug abuse patient.[facility] CenterIn the event this information is protected by the Federal Confidentiality of Alcohol and Drug Abuse Patient Records regulations: The Federal rules restrict any use of the information to criminally investigate or prosecute any alcohol or drug abuse patient.[facility] CenterIn the event this information is protected by the Federal Confidentiality of Alcohol and Drug Abuse Patient Records regulations: The Federal rules restrict any use of the information to criminally investigate or prosecute any alcohol or drug abuse patient.[facility] CenterIn the event this information is protected by the Federal Confidentiality of Alcohol and Drug Abuse Patient Records regulations: The Federal rules restrict any use of the information to criminally investigate or prosecute any alcohol or drug abuse patient.[facility] CenterIn the event this information is protected by the Federal Confidentiality of Alcohol and Drug Abuse Patient Records regulations: The Federal rules restrict any use of the information to criminally investigate or prosecute any alcohol or drug abuse patient.[facility] CenterIn the event this information is protected by the Federal Confidentiality of Alcohol and Drug Abuse Patient Records regulations: The Federal rules restrict any use of the information to criminally investigate or prosecute any alcohol or drug abuse patient.[facility] Reason for Visit (unrecogniz ed section and content) Reason Onset Date Comments Transition Of Care 09/14/2021 [facility] Initial M [facility] Discharge 09/13/21 Reason Onset Date Comments Transition Of Care 09/14/2021 [facility] Pharmacy- Hospital discharge 09/13/21 Reason Comments Recheck Hosp follow up Specialty Diagnoses / Procedures Referred By Morris t Referred To Contact Internal Medicine / INTERNAL MEDICINE Diagnoses hospital follow up Procedures [facility] [address] [place] [address] Anjel Braga APRN.[employer] [address] [place] [address] Referral ID Status Reason Start Date Expiration Date V isits Requested Visits Authorized [id number] Closed Financial Clearance Required - OON Payor Patient Cleared INN/SMCP Payor Auth Obtained 09/15/2021 06/18/2022 1 1 Reason Comments Patient Update Reason Comments Medication Problem Plan of Care Reason Comments Nifedipine issue Reason Onset Date Comments Transition Of Care 09/16/2021 [facility] f/u [facility] Discharge 09/13/21 Reason Comments FYI-OT plan of care Reason Comments Anticoagulation Reason Comments Orders Reason Comments medication issue Reason Comments [facility] verbal order needed Reason Comments Medication Problem Reason Comments Consult gallbladder, abdomen pain Specialty Diagnoses / Procedures Referred By Contac t Referred To Contact General Surgery / GENERAL SURGERY Diagnoses Acute cholecystitis Abdominal pain Acute cholecystitis, persistent abdominal pain Procedures OFFICE/OUTPATIENT NEW [facility] MDM 45-59 MINUTES NEW DDI PATIENT Adelaida Farias MD [address] [address] Kaye Ortega MD [address] [place] [address] Referral ID Status Reason Start Date Expiration Date V isits Requested Visits Authorized [id number] Closed Financial Clearance Required - OON Payor Patient Cleared INN/SMCP Payor Auth Obtained 09/08/2021 06/18/2022 1 1 Reason Comments Patient Question visit from 09/15/21 Reason Comments Patient Question Reason Comments Appointment CONSULT FOR CHOLECYS TECTOMY Reason Comments Appointment Reason Onset Date Comments Transition Of Care 09/21/2021 [facility] f/u [facility] Discharge 09/13/21 Reason Comments Work excuse letter Reason Onset Date Comments Transition Of Care 09/29/2021 [facility] f/u [facility] Discharge 09/13/21 Reason Onset Date Comments Refill Request 10/04/2021 Reason Comments Hypertension Specialty Diagnoses / Procedures Referred By Contac t Referred To Contact Internal Medicine / INTERNAL MEDICINE Diagnoses 09/13 ER Discharge [facility] Broken ribs follow up Procedures [facility] FU Daija Morton MD [address] [place] [address] Anjel Braga APRN.ACE [address] [place] [address] Referral ID Status Reason Start Date Expiration Date Visits Re quested Visits Authorized [id number] Closed 10/07/2021 06/18/2022 1 1 Reason Comments Coumadin update / [place] Reason Comments Patient Update Orders Reason Comments Consult gallbladder Reason Comments Anticoagulation Telephone Fu Reason Comments Cardiac Clearance Reason Comments Elevated BP Reason Comments Blood Pressure Check Reason Onset Date Comments Refill Request 10/20/2021 Reason Onset Date Comments Refill Request 10/22/2021 Reason Comments Spirometry Specialty Diagnoses / Procedures Referred By Contac t Referred To Contact [facility] Diagnoses COPD with chronic bronchitis (HCC) Procedures SPIROMETRY BASELINE ONLY SPMTRY W/VC EXPIRATORY BRIAN W/WO MXML VOL VNTJ Emilie Jauregui PA-C [address] [place] [id number] [facility] [address] [address] [address] Referral ID Status Reason Start Date Expiration Date V isits Requested Visits Authorized [id number] Closed Auto-Generate d Referral 11/05/2021 06/18/2022 1 1 Specialty Diagnoses / Procedures Referred By Contac t Referred To Contact [facility] Diagnoses COPD with chronic bronchitis (HCC) Procedures OXIMETRY WITH AMBULATION NONINVASIVE EAR/PULSE OXIMETRY MULTIPLE Emilie Ko PA-C [address] [place] [address] [address] Referral ID Status Reason Start Date Expiration Date V isits Requested Visits Authorized [id number] Closed Auto-Generate d Referral 11/05/2021 06/18/2022 1 1 Specialty Diagnoses / Procedures Referred By Contac t Referred To Contact Pulmonary and Critical Care Medicine / PULMONARY MEDICINE Diagnoses pre op clearance for gen surgery Procedures RI EST PULM GENERAL Daija Morton MD [address] [place] [id number] Emilie Jauregui PA-C [address] [address] Referral ID Status Reason Start Date Expiration Date Visits Re quested Visits Authorized [id number] Closed 10/21/2021 06/18/2022 1 1 Reason Comments Results Reason Comments Cardiac Clearance surgery to have gall bladder removed Reason Comments UTI Specialty Diagnoses / Procedures Referred By Contac t Referred To Contact Internal Medicine / INTERNAL MEDICINE Diagnoses Essential hypertension UTI Procedures OFFICE/OUTPATIENT ESTABLISHED MOD MDM 30-39 MIN 4C EST Self Omi, CHARLES Nuno.ACE [address] [place] [address] Referral ID Status Reason Start Date Expiration Date Visits Re quested Visits Authorized [id number] Closed 11/17/2021 06/18/2022 1 1 Reason Onset Date Comments Refill Request 11/18/2021 Reason Onset Date Comments Refill Request 11/19/2021 Reason Comments Medication Request Reason Comments Clinical Update Reason Comments Patient Update Medication Request Reason Comments Appointment 01/14 ED F/U-need ED location to retrieve records Reason Comments ER F/U H -ABLA Specialty Diagnoses / Procedures Referred By Contac t Referred To Contact Internal Medicine / INTERNAL MEDICINE Diagnoses Follow-up [facility] hospital f/u Procedures OFFICE/OUTPATIENT ESTABLISHED MOD MDM 30-39 MIN 4C EST HOSP/ER MD Roosevelt Marks Terri, CONTOUR PATH TAPE MILL OPERATOR.BELT LOOP MACHINE OPERATOR [address] [place] [address] Referral ID Status Reason Start Date Expiration Date Visits Re quested Visits Authorized [id number] Closed 01/14/2022 06/18/2022 1 1 Reason Comments Established Patient follow up anand r Reason Comments Recheck Follow up, Hosp foll ow up Specialty Diagnoses / Procedures Referred By Contac t Referred To Contact Internal Medicine / INTERNAL MEDICINE Diagnoses [facility] ER f/u. 01-25-22. Black stool. Procedures 4C EST HOSP/ER MD Omi Marks Joy, CONTOUR PATH TAPE MILL OPERATOR.ASSISTANT PASTRY CHEF [address] [place] [address] Referral ID Status Reason Start Date Expiration Date Visits Re quested Visits Authorized [id number] Closed 01/28/2022 04/28/2022 1 1 Reason Comments Follow Up Specialty Diagnoses / Procedures Referred By Contac t Referred To Contact Vascular Surgery / VASCULAR SURGERY Diagnoses PVD 1 year f/u with PVR and arterial Duplex [place] [address] [address] [place] [address] [place] [address] [place] [address] Referral ID Status Reason Start Date Expiration Date Visits Re quested Visits Authorized [id number] Closed 01/31/2022 06/18/2022 1 1 Reason Comments Results, Lab Reason Onset Date Comments Refill Request 02/22/2022 Reason Comments Erroneous encounter-disregard Reason Comments Fall Reason Comments SWCC orders needed today Reason Comments admit to [facility] Reason Comments Social Work Services Reason Comments Medication Question Reason Comments Syncope Reason Onset Date Comments Refill Request 08/25/2022 Patient Update 08/25/2022 Reason Comments [facility] follow-up Reason Onset Date Comments Refill Request 08/29/2022 Reason Comments Refill Request HHC Request Reason Comments patient problem Reason Onset Date Comments Refill Request 09/30/2022 Reason Onset Date Comments Refill Request 01/27/2023 Reason Onset Date Comments Refill Request 02/24/2023 Reason Comments Need verbal for [facility] Reason Onset Date Comments Refill Request 05/30/2023 Reason Onset Date Comments Refill Request 08/04/2023 Reason Onset Date Comments Population Health Navigation Outreach 08/21/2023 [employer] care gaps Reason Comments FYI-No Action Needed Reason Comments Orders Follow skilled nursi ng orders from [facility] Reason Comments Future Appointment Reason Comments Hospital F/U Seen in August for fr actured pelvis, patient states he had 9 surgeries to fix this, also fell twice while in [facility] Reason Comments Mental status change Reason Comments No Show Reason Onset Date Comments Refill Request 01/23/2024 Reason Onset Date Comments Refill Request 03/12/2024 Reason Comments UTI Foul odor, confusion Reason Comments Home Health Orders Reason Comments [employer] update Reason Comments Home Care Management Patient Update Reason Comments [facility] discharge [facility] Reason Onset Date Comments Refill Request 12/13/2024 Reason Comments [facility] requesting records Care Teams (unrecognized sec tion and content) Under Seal Operator Relationship Specialty Start Date End Date Daija Morton MD [address] [place], [place] [id number] PCP - General Internal Medicine 03/21/17 Beatriz Correa, ASSISTANT PASTRY CHEF Referring 09/28/20 Daija Morton MD [address] [place], [place] [id number] Home Care Physician Internal Medicine 09/28/20 13, Pharmacist [phone] [place] [address] Pharmacist Pharmacy 06/17/21 Lizette Ulloa, RN [address] [place] [address] Primary Care Sales And Marketing Intern Internal Medicine 09/14/21 10/14/21 Tamika Almaguer [employer] Production Assistant 09/26/17 Under Seal Operator Relationship Specialty Start Date End Date Daija Morton MD [address] [facility] [address] PCP - General Internal Medicine 03/21/17 Beatriz Correa, ASSISTANT PASTRY CHEF Referring 09/28/20 Daija Morton MD [address] [facility] [address] Home Care Physician Internal Medicine 09/28/20 13, Pharmacist [phone] [place] [address] Pharmacist Pharmacy 06/17/21 Lizette Ulloa, RN [address] [place] [address] Primary Care Sales And Marketing Intern Internal Medicine 09/14/21 10/14/21 Tamika Almaguer [employer] Production Assistant 09/26/17 Under Seal Operator Relationship Specialty Start Date End Date Daija Morton MD [address] [place] [address] PCP - General Internal Medicine 03/21/17 Beatriz Correa, ASSISTANT PASTRY CHEF Referring 09/28/20 Daija Morton MD [address] [place] [address] Home Care Physician Internal Medicine 09/28/20 13, Pharmacist [phone] [facility] [place] [address] Pharmacist Pharmacy 06/17/21 Lizette Ulloa, RN [address] [place] [address] Primary Care Sales And Marketing Intern Internal Medicine 09/14/21 10/14/21 Tamika Almaguer [employer] Production Assistant 09/26/17 Under Seal Operator Relationship Specialty Start Date End Date Daija Morton MD [address] [place] [address] PCP - General Internal Medicine 03/21/17 Beatriz Correa CNP Referring 09/28/20 Daija Morton MD [address] [place] [address] Home Care Physician Internal Medicine 09/28/20 13, Pharmacist [address] [place] [address] Pharmacist Pharmacy 06/17/21 Lizette Ulloa, ОЛЕГ [address] [place] [address] Primary Care Sales And Marketing Intern Internal Medicine 09/14/21 10/14/21 Tamika HARRELL News Production Assistant 09/26/17 Under Seal Operator Relationship Specialty Start Date End Date Daija Morton MD [address] [place] [address] PCP - General Internal Medicine 03/21/17 Beatriz Correa CNP Referring 09/28/20 Daija Morton MD [address] [place] [address] Home Care Physician Internal Medicine 09/28/20 13, Pharmacist [phone] [place] [address] Pharmacist Pharmacy 06/17/21 Lizette Ulloa RN [address] [place] [address] Primary Care Sales And Marketing Intern Internal Medicine 09/14/21 10/14/21 Tamika HARRELL News Production Assistant 09/26/17 Under Seal Operator Relationship Specialty Start Date End Date Daija Morton MD [address] [place] [address] PCP - General Internal Medicine 03/21/17 Beatriz Correa CNP Referring 09/28/20 Daija Morton MD [address] [place] [address] Home Care Physician Internal Medicine 09/28/20 13, Pharmacist [address] [place] [address] Pharmacist Pharmacy 06/17/21 Lizette Ulloa RN [address] [facility] [address] Primary Care Sales And Marketing Intern Internal Medicine 09/14/21 10/14/21 Tamika Almaguer [employer] Production Assistant 09/26/17 Under Seal Operator Relationship Specialty Start Date End Date Daija Morton MD [address] [place] [address] PCP - General Internal Medicine 03/21/17 Beatriz Correa, ASSISTANT PASTRY CHEF Referring 09/28/20 Daija Morton MD [address] [place] [address] Home Care Physician Internal Medicine 09/28/20 13, Pharmacist [address] [place] [address] Pharmacist Pharmacy 06/17/21 Lizette Ulloa RN [address] [place] [address] Primary Care Sales And Marketing Intern Internal Medicine 09/14/21 10/14/21 Tamika Almaguer PASS[employer] News Production Assistant 09/26/17 Under Seal Operator Relationship Specialty Start Date End Date Daija Morton MD [address] [place] [address] PCP - General Internal Medicine 03/21/17 Beatriz Correa, ASSISTANT PASTRY CHEF Referring 09/28/20 Daija Morton MD [address] [place] [address] Home Care Physician Internal Medicine 09/28/20 13, Pharmacist [address] [place] [address] Pharmacist Pharmacy 06/17/21 Lizette Ulloa RN [address] [place] [address] Primary Care Sales And Marketing Intern Internal Medicine 09/14/21 10/14/21 Kaye Ortega MD [address] [place] [address] General Surgery 09/21/21 Tamika Almaguer PASS[employer] News Production Assistant 09/26/17 Under Seal Operator Relationship Specialty Start Date End Date Daija Morton MD [address] [facility] [address] PCP - General Internal Medicine 03/21/17 Beatriz Correa, ACE Referring 09/28/20 Daija Morton MD [address] [facility] [address] Home Care Physician Internal Medicine 09/28/20 13, Pharmacist [address] [place] [address] Pharmacist Pharmacy 06/17/21 Lizette Ulloa RN [address] [place] [address] Primary Care Sales And Marketing Intern Internal Medicine 09/14/21 10/14/21 Kaye Ortega MD [address] [place] [address] General Surgery 09/21/21 Tamika HARRELL News Production Assistant 09/26/17 Under Seal Operator Relationship Specialty Start Date End Date Daija Morton MD [address] [facility] [address] PCP - General Internal Medicine 03/21/17 Beatriz Correa, ASSISTANT PASTRY CHEF Referring 09/28/20 Daija Morton MD [address] [facility] [address] Home Care Physician Internal Medicine 09/28/20 13, Pharmacist [address] [place] [address] Pharmacist Pharmacy 06/17/21 Lizette Ulloa, ОЛЕГ [address] [place] [address] Primary Care Sales And Marketing Intern Internal Medicine 09/14/21 10/14/21 Kaye Ortega MD [address] [facility] [place] [address] General Surgery 09/21/21 Tamika Almaguer [employer] Production Assistant 09/26/17 Under Seal Operator Relationship Specialty Start Date End Date Daija Morton MD [address] [place] [address] PCP - General Internal Medicine 03/21/17 Beatriz Correa, ASSISTANT PASTRY CHEF Referring 09/28/20 Daija Morton MD [address] [place] [address] Home Care Physician Internal Medicine 09/28/20 13, Pharmacist [address] [place] [address] Pharmacist Pharmacy 06/17/21 Lizette Ulloa, ОЛЕГ [address] [place] [address] Primary Care Sales And Marketing Intern Internal Medicine 09/14/21 10/14/21 Kaye Ortega MD [address] [facility] [place] [address] General Surgery 09/21/21 Tamika HARRELL News Production Assistant 09/26/17 Under Seal Operator Relationship Specialty Start Date End Date Daija Morton MD [address] [place] [address] PCP - General Internal Medicine 03/21/17 Beatriz Correa, ASSISTANT PASTRY CHEF Referring 09/28/20 Daija Morton MD [address] [place] [address] Home Care Physician Internal Medicine 09/28/20 13, Pharmacist [address] [place] [address] Pharmacist Pharmacy 06/17/21 Lizette Ulloa, ОЛЕГ [address] [facility] [address] Primary Care Sales And Marketing Intern Internal Medicine 09/14/21 10/14/21 Kaye Ortega MD [address] [place] [address] General Surgery 09/21/21 Tamika HARRELL News Production Assistant 09/26/17 Under Seal Operator Relationship Specialty Start Date End Date Daija Morton MD [address] [place] [address] PCP - General Internal Medicine 03/21/17 Beatriz Correa, ASSISTANT PASTRY CHEF Referring 09/28/20 Daija Morton MD [address] [place] [address] Home Care Physician Internal Medicine 09/28/20 13, Pharmacist [address] [place] [address] Pharmacist Pharmacy 06/17/21 Lizette Ulloa, ОЛЕГ [address] [place] [address] Primary Care Sales And Marketing Intern Internal Medicine 09/14/21 10/14/21 Kaye Ortega MD [address] [facility] [place] [address] General Surgery 09/21/21 Tamika HARRELL News Production Assistant 09/26/17 Under Seal Operator Relationship Specialty Start Date End Date Daija Morton MD [address] [place] [address] PCP - General Internal Medicine 03/21/17 Beatriz Correa, ASSISTANT PASTRY CHEF Referring 09/28/20 Daija Morton MD [address] [place] [address] Home Care Physician Internal Medicine 09/28/20 Fco Franklin, ОЛЕГ [address] [place] [address] Quality Control Checker 10/08/20 12/21/20 13, Pharmacist [address] [place] [address] Pharmacist Pharmacy 06/17/21 Lizette Ulloa RN [address] [facility] [address] Primary Care Sales And Marketing Intern Internal Medicine 09/14/21 10/14/21 Kaye Ortega MD [address] [facility] [place] [address] General Surgery 09/21/21 Tamika Canales [facility] News Production Assistant 09/26/17 Under Seal Operator Relationship Specialty Start Date End Date Daija Morton MD [address] [place] [address] PCP - General Internal Medicine 03/21/17 Beatriz Correa, ASSISTANT PASTRY CHEF Referring 09/28/20 Daija Morton MD [address] [place] [address] Home Care Physician Internal Medicine 09/28/20 13, Pharmacist [address] [place] [address] Pharmacist Pharmacy 06/17/21 Lizette Ulloa RN [address] [place] [address] Primary Care Sales And Marketing Intern Internal Medicine 09/14/21 10/14/21 Kaye Ortega MD [address] [facility] [place] [address] General Surgery 09/21/21 Tamika Almaguer [employer] Production Assistant 09/26/17 Under Seal Operator Relationship Specialty Start Date End Date Daija Morton MD [address] [place], [place] [id number] PCP - General Internal Medicine 03/21/17 Beatriz Correa, ASSISTANT PASTRY CHEF Referring 09/28/20 10/12/21 Daija Morton MD [address] [place], [place] [address] Home Care Physician Internal Medicine 09/28/20 10/12/21 13, Pharmacist [address] [place], [place] [address]098[address] Pharmacist Pharmacy 06/17/21 Lizette Ulloa, ОЛЕГ [address] [place], [place] [address] Primary Care Sales And Marketing Intern Internal Medicine 09/14/21 10/14/21 Kaye Ortega MD [address] [place] [address] General Surgery 09/21/21 Ye Coello MD [address] [place], [place] [id number] General Surgery 10/13/21 Emilie Jauregui, PA-C [address] [place] [address] Specialty Supervisor Intermediates Pulmonary and Critical Care Medicine 10/13/21 Ryan May MD [address] [place], [place] [id number] Specialty Supervisor Intermediates Vascular Surgery 10/13/21 Geronimo Medina DO [address] [address] Merchandise Flow Team Member Cardiology 10/13/21 Tamika Almaguer [employer] Production Assistant 09/26/17 Under Seal Operator Relationship Specialty Start Date End Date Daija Morton MD [address] [place], [place] [id number] PCP - General Internal Medicine 03/21/17 13, Pharmacist [address] [place] [address] Pharmacist Pharmacy 06/17/21 Lizette Ulloa, ОЛЕГ [address] [place] [address] Primary Care Sales And Marketing Intern Internal Medicine 09/14/21 10/14/21 Kaye Ortega MD [address] [place] [address] General Surgery 09/21/21 Ye Coello MD [address] [place], [place] [id number] General Surgery 10/13/21 Emilie Jauregui PA-C [address] [place] [address] Specialty Supervisor Intermediates Pulmonary and Critical Care Medicine 10/13/21 Ryan May MD [address] [place], [place] 383[address] Specialty Supervisor Intermediates Vascular Surgery 10/13/21 Geronimo Medina, DO [address] [address] Merchandise Flow Team Member Cardiology 10/13/21 Tamika Almaguer PASS[employer] News Production Assistant 09/26/17 Under Seal Operator Relationship Specialty Start Date End Date Daija Morton MD [address] [place] [address] PCP - General Internal Medicine 03/21/17 Beatriz Correa, ASSISTANT PASTRY CHEF Referring 09/28/20 10/12/21 Daija Morton MD [address] [place] [address] Home Care Physician Internal Medicine 09/28/20 10/12/21 13, Pharmacist [address] [place] [address] Pharmacist Pharmacy 06/17/21 Lizette Ulloa RN [address] [place] [address] Primary Care Sales And Marketing Intern Internal Medicine 09/14/21 10/14/21 Kaye Ortega MD [address] [place] [address] General Surgery 09/21/21 Ye Coello MD [address] [place], [place] [address]295 General Surgery 10/13/21 Emilie Jauregui, PA-C [address] [place], [place] 430[address] Specialty Supervisor Intermediates Pulmonary and Critical Care Medicine 10/13/21 Ryan May MD [address] [place], [place] 7214[address] Specialty Supervisor Intermediates Vascular Surgery 10/13/21 Geronimo Medina, DO [address] [address] Merchandise Flow Team Member Cardiology 10/13/[address] [facility] News Production Assistant 09/26/17 Under Seal Operator Relationship Specialty Start Date End Date Daija Morton MD [address] [place], [place] [id number] PCP - General Internal Medicine 03/21/17 13, Pharmacist [address] [place] [address] Pharmacist Pharmacy 06/17/21 Lizette Ulloa RN [address] [place], [place] 239[address] Primary Care Sales And Marketing Intern Internal Medicine 09/14/21 10/14/21 Kaye Ortega MD [address] [place] [address] General Surgery 09/21/21 Ye Coello MD [address] [place], [place] [id number] General Surgery 10/13/21 Emilie Jauregui PA-C [address] [place], [place] 670441 Specialty Supervisor Intermediates Pulmonary and Critical Care Medicine 10/13/21 Ryan May MD [address] [place] [address] Specialty Supervisor Intermediates Vascular Surgery 10/13/21 Geronimo Medina DO [address] [address] Merchandise Flow Team Member Cardiology 10/13/21 Tamika Almaguer [facility] News Production Assistant 09/26/17 Under Seal Operator Relationship Specialty Start Date End Date Daija Morton MD [address] [place], [place] [id number] PCP - General Internal Medicine 03/21/17 13, Pharmacist [address] [place] [address] Pharmacist Pharmacy 06/17/21 Kaye Ortega MD [address] [place] [address] General Surgery 09/21/21 Ye Coello MD [address] [facility] [place], [place] [address] General Surgery 10/13/21 Emilie Jauregui PA-C [address] [place] [address] Specialty Supervisor Intermediates Pulmonary and Critical Care Medicine 10/13/21 Ryan May MD [address] [facility] [address] Specialty Supervisor Intermediates Vascular Surgery 10/13/21 Geronimo Medina, [address] [address] Merchandise Flow Team Member Cardiology 10/13/21 Tamika Almaguer PASS[employer] News Production Assistant 09/26/17 Under Seal Operator Relationship Specialty Start Date End Date Daija Morton MD [address] [place] [address] PCP - General Internal Medicine 03/21/17 13, Pharmacist [address] [place] [address] Pharmacist Pharmacy 06/17/21 Kaye Ortega MD [address] [place] [address] General Surgery 09/21/21 Ye Coello MD [address] [place] [address] General Surgery 10/13/21 Emilie Jauregui PA-C [address] [place] [address] Specialty Supervisor Intermediates Pulmonary and Critical Care Medicine 10/13/21 Ryan May MD [address] [place] [address] Specialty Supervisor Intermediates Vascular Surgery 10/13/21 Geronimo Medina, [address] [address] Merchandise Flow Team Member Cardiology 10/13/21 Tamika HARRELL News Production Assistant 09/26/17 Under Seal Operator Relationship Specialty Start Date End Date Daija Morton MD [address] [place] [address] PCP - General Internal Medicine 03/21/17 13, Pharmacist [address] [place] [address] Pharmacist Pharmacy 06/17/21 Kaye Ortega MD [address] [place] [address] General Surgery 09/21/21 Ye Coello MD [address] [place], [place] [id number] General Surgery 10/13/21 Emilie Jauregui PA-C [address] [place] [address] Specialty Supervisor Intermediates Pulmonary and Critical Care Medicine 10/13/21 Ryan May MD [address] [place] [address] Specialty Supervisor Intermediates Vascular Surgery 10/13/21 Geronimo Medina, DO [address] [address] Merchandise Flow Team Member Cardiology 10/13/21 Tamika HARRELL News Production Assistant 09/26/17 Under Seal Operator Relationship Specialty Start Date End Date Daija Morton MD [address] [place] [address] PCP - General Internal Medicine 03/21/17 13, Pharmacist [address] [place] [address] Pharmacist Pharmacy 06/17/21 Kaye Ortega MD [address] [place] [address] General Surgery 09/21/21 Ye Coello MD [address] [place], [place] 69[address]85 General Surgery 10/13/21 Emilie Jauregui PA-C [address] [place] [address] Specialty Supervisor Intermediates Pulmonary and Critical Care Medicine 10/13/21 Ryan May MD [address] [place], [place] [address]275[address] Specialty Supervisor Intermediates Vascular Surgery 10/13/21 Geronimo Medina DO [address] [address] Merchandise Flow Team Member Cardiology 10/13/21 Tamika Almaguer [facility] News Production Assistant 09/26/17 Under Seal Operator Relationship Specialty Start Date End Date Daija Morton MD [address] [place] [address] PCP - General Internal Medicine 03/21/17 13, Pharmacist [address] [place] [address] Pharmacist Pharmacy 06/17/21 Kaye Ortega MD [address] [place] [address] General Surgery 09/21/21 Ye Coello MD [address] [place] [address] General Surgery 10/13/21 Emilie Jauregui PA-C [address] [place] [address] Specialty Supervisor Intermediates Pulmonary and Critical Care Medicine 10/13/21 Ryan May MD [address] [place], [place] [address]70[address] Specialty Supervisor Intermediates Vascular Surgery 10/13/21 Geronimo Medina DO [address] [address] Merchandise Flow Team Member Cardiology 10/13/21 Tamika HARRELL News Production Assistant 09/26/17 Under Seal Operator Relationship Specialty Start Date End Date Daija Morton MD [address] [place] [address] PCP - General Internal Medicine 03/21/17 13, Pharmacist [address] [place] [address] Pharmacist Pharmacy 06/17/21 Kaye Ortega MD [address] [place] [address] General Surgery 09/21/21 Ye Coello MD [address] [place], [place] [id number] General Surgery 10/13/21 Emilie Jauregui PA-C [address] [place], [place] [address] Specialty Supervisor Intermediates Pulmonary and Critical Care Medicine 10/13/21 Ryan May MD [address] [place] [address] Specialty Supervisor Intermediates Vascular Surgery 10/13/21 Geronimo Medina DO [address] [address] Merchandise Flow Team Member Cardiology 10/13/21 Tamika HARRELL News Production Assistant 09/26/17 Under Seal Operator Relationship Specialty Start Date End Date Daija Morton MD [address] [place] [address] PCP - General Internal Medicine 03/21/17 13, Pharmacist [address] [place] [address] Pharmacist Pharmacy 06/17/21 Kaye Ortega MD [address] [place] [address] General Surgery 09/21/21 Ye Coello MD [address] [place], [place] [id number] General Surgery 10/13/21 Emilie Jauregui PA-C [address] [place] [address] Specialty Supervisor Intermediates Pulmonary and Critical Care Medicine 10/13/21 Ryan May MD [address] [place], [place] 7[address] Specialty Supervisor Intermediates Vascular Surgery 10/13/21 Geronimo Medina, [address] [address] Merchandise Flow Team Member Cardiology 10/13/21 Tamika Almaguer [facility] News Production Assistant 09/26/17 Under Seal Operator Relationship Specialty Start Date End Date Daija Morton MD [address] [place] [address] PCP - General Internal Medicine 03/21/17 13, Pharmacist [address] [place] [address] Pharmacist Pharmacy 06/17/21 Kaye Ortega MD [address] [place] [address] General Surgery 09/21/21 Ye Coello MD [address] [place], [place] [id number] General Surgery 10/13/21 Emilie Jauregui PA-C [address] [place] [address] Specialty Supervisor Intermediates Pulmonary and Critical Care Medicine 10/13/21 Ryan May MD [address] [place] [address] Specialty Supervisor Intermediates Vascular Surgery 10/13/21 Geronimo Medina DO [address] [address] Merchandise Flow Team Member Cardiology 10/13/21 Tamika HARRELL News Production Assistant 09/26/17 Under Seal Operator Relationship Specialty Start Date End Date Daija Morton MD [address] [place] [address] PCP - General Internal Medicine 03/21/17 13, Pharmacist [address] [place] [address] Pharmacist Pharmacy 06/17/21 Kaye Ortega MD [address] [place] [address] General Surgery 09/21/21 Ye Coello MD [address] [place], [place] [id number] General Surgery 10/13/21 Emilie Jauregui PA-C [address] [place] [address] Specialty Supervisor Intermediates Pulmonary and Critical Care Medicine 10/13/21 Ryan May MD [address] [place] [address] Specialty Supervisor Intermediates Vascular Surgery 10/13/21 Geronimo Medina DO [address] [address] Merchandise Flow Team Member Cardiology 10/13/21 Tamika HARRELL News Production Assistant 09/26/17 Under Seal Operator Relationship Specialty Start Date End Date Daija Morton MD [address] [place] [address] PCP - General Internal Medicine 03/21/17 13, Pharmacist [address] [place] [address] Pharmacist Pharmacy 06/17/21 Kaye Ortega MD [address] [place] [phone] General Surgery 09/21/21 Ye Coello MD [address] [place] [id number] General Surgery 10/13/21 Emilie Jauregui PA-C [address] [place] [address] Specialty Supervisor Intermediates Pulmonary and Critical Care Medicine 10/13/21 Ryan May MD [address] [place] [address] Specialty Supervisor Intermediates Vascular Surgery 10/13/21 Geronimo Medina, [address] [address] Merchandise Flow Team Member Cardiology 10/13/[address] [facility] News Production Assistant 09/26/17 Under Seal Operator Relationship Specialty Start Date End Date Daija Morton MD [address] [place] [address] PCP - General Internal Medicine 03/21/17 13, Pharmacist [address] [place] [address] Pharmacist Pharmacy 06/17/21 aKye Ortega MD [address] [place] [address] General Surgery 09/21/21 Ye Coello MD [address] [place], [place] [id number] General Surgery 10/13/21 Emilie Jauregui PA-C [address] [place], [place] 452871 Specialty Supervisor Intermediates Pulmonary and Critical Care Medicine 10/13/21 Ryan May MD [address] [place], [place] 3294395 Specialty Supervisor Intermediates Vascular Surgery 10/13/21 Geronimo Medina, [address] [phone] Merchandise Flow Team Member Cardiology 10/13/21 Tamika Almaguer [employer] News Production Assistant 09/26/17 Under Seal Operator Relationship Specialty Start Date End Date Daija Morton MD [address] [place], [place] [id number] PCP - General Internal Medicine 03/21/17 13, Pharmacist [address] [place] [address] Pharmacist Pharmacy 06/17/21 Kaye Ortega MD [address] [place] [address] General Surgery 09/21/21 Ye Coello MD [address] [place] [address] General Surgery 10/13/21 Emilie Jauregui PA-C [address] [place], [place] [id number] Specialty Supervisor Intermediates Pulmonary and Critical Care Medicine 10/13/21 Ryan May MD [address] [place], [place] 1932495 Specialty Supervisor Intermediates Vascular Surgery 10/13/21 Geronimo Medina DO [address] [address] Merchandise Flow Team Member Cardiology 10/13/21 Tamika HARRELL News Production Assistant 09/26/17 Under Seal Operator Relationship Specialty Start Date End Date Daija Morton MD [address] [place] [address] PCP - General Internal Medicine 03/21/17 13, Pharmacist [address] [place] [address] Pharmacist Pharmacy 06/17/21 Kaye Ortega MD [address] [place] [phone] General Surgery 09/21/21 Ye Coello MD [address] [place], [place] [id number] General Surgery 10/13/21 Emilie Jauregui PA-C [address] [place], [place] 856311 Specialty Supervisor Intermediates Pulmonary and Critical Care Medicine 10/13/21 Ryan May MD [address] [place], [place] 4929395 Specialty Supervisor Intermediates Vascular Surgery 10/13/21 Geronimo Medina DO [address] [address] Merchandise Flow Team Member Cardiology 10/13/21 Tamika HARRELL News Production Assistant 09/26/17 Under Seal Operator Relationship Specialty Start Date End Date Daija Morton MD [address] [place] [address] PCP - General Internal Medicine 03/21/17 13, Pharmacist [address] [place] [address] Pharmacist Pharmacy 06/17/21 Kaye Ortega MD [address] [place] [address] General Surgery 09/21/21 Ye Coello MD [address] [place], [place] [phone] General Surgery 10/13/21 Emilie Jauregui PA-C [address] [place], [place] 031371 Specialty Supervisor Intermediates Pulmonary and Critical Care Medicine 10/13/21 Ryan May MD [address] [place], [place] 3881295 Specialty Supervisor Intermediates Vascular Surgery 10/13/21 Geronimo Medina DO [address] [address] Merchandise Flow Team Member Cardiology 10/13/21 Tamika Almaguer [facility] News Production Assistant 09/26/17 Under Seal Operator Relationship Specialty Start Date End Date Daija Morton MD [address] [place], [place] [id number] PCP - General Internal Medicine 03/21/17 13, Pharmacist [address] [place] [address] Pharmacist Pharmacy 06/17/21 Kaye Ortega MD [address] [place] [address] General Surgery 09/21/21 Ye Coello MD [address] [place], [place] [phone] General Surgery 10/13/21 Emilie Jauregui PA-C [address] [place] [address] Specialty Supervisor Intermediates Pulmonary and Critical Care Medicine 10/13/21 Ryan May MD [address] [facility] [address] Specialty Supervisor Intermediates Vascular Surgery 10/13/21 Geronimo Medina DO [address] [address] Merchandise Flow Team Member Cardiology 10/13/21 Tamika HARRELL News Production Assistant 09/26/17 Under Seal Operator Relationship Specialty Start Date End Date Daija Morton MD [address] [place] [address] PCP - General Internal Medicine 03/21/17 13, Pharmacist [address] [place] [address] Pharmacist Pharmacy 06/17/21 Kaye Ortega MD [address] [place] [address] General Surgery 09/21/21 Ye Coello MD [address] [place], [place] [phone] General Surgery 10/13/21 Emilie Jauregui PA-C [address] [place] [address] Specialty Supervisor Intermediates Pulmonary and Critical Care Medicine 10/13/21 Ryan May MD [address] [place] [address] Specialty Supervisor Intermediates Vascular Surgery 10/13/21 Geronimo Medina DO [address] [address] Merchandise Flow Team Member Cardiology 10/13/21 Tamika HARRELL News Production Assistant 09/26/17 Under Seal Operator Relationship Specialty Start Date End Date Daija Morton MD [address] [place] [address] PCP - General Internal Medicine 03/21/17 13, Pharmacist [address] [place] [address] Pharmacist Pharmacy 06/17/21 Kaye Ortega MD [address] [place] [phone] General Surgery 09/21/21 Ye Coello MD [address] [place], [place] [id number] General Surgery 10/13/21 Emilie Jauregui PA-C [address] [place] [address] Specialty Supervisor Intermediates Pulmonary and Critical Care Medicine 10/13/21 Ryan May MD [address] [place], [place] 4373995 Specialty Supervisor Intermediates Vascular Surgery 10/13/21 Geronimo Medina, DO [address] [address] Merchandise Flow Team Member Cardiology 10/13/21 Tamika Almaguer [facility] News Production Assistant 09/26/17 Under Seal Operator Relationship Specialty Start Date End Date Daija Morton MD [address] [place] [address] PCP - General Internal Medicine 03/21/17 13, Pharmacist [address] [place] [address] Pharmacist Pharmacy 06/17/21 Kaye Ortega MD [address] [place] [address] General Surgery 09/21/21 Ye Coello MD [address] [place], [place] 813125 General Surgery 10/13/21 Emilie Jauregui PA-C [address] [place] [address] Specialty Supervisor Intermediates Pulmonary and Critical Care Medicine 10/13/21 Ryan May MD [address] [place], [place] 8654195 Specialty Supervisor Intermediates Vascular Surgery 10/13/21 Geronimo Medina, [address] [address] Merchandise Flow Team Member Cardiology 10/13/21 Tamika Almaguer [employer] News Production Assistant 09/26/17 Under Seal Operator Relationship Specialty Start Date End Date Daija Morton MD [address] [place], [place] 615711 PCP - General Internal Medicine 03/21/17 13, Pharmacist [address] [place] [address] Pharmacist Pharmacy 06/17/21 Kaye Ortega MD [address] [place] [address] General Surgery 09/21/21 Ye Coello MD [address] [place], [place] 438[phone] General Surgery 10/13/21 Emilie Jauregui PA-C [address] [place] [address] Specialty Supervisor Intermediates Pulmonary and Critical Care Medicine 10/13/21 Ryan May MD [address] [place] [address] Specialty Supervisor Intermediates Vascular Surgery 10/13/21 Geronimo Medina DO [address] [address] Merchandise Flow Team Member Cardiology 10/13/21 Tamika Almaguer [facility] News Production Assistant 09/26/17 Under Seal Operator Relationship Specialty Start Date End Date Daija Morton MD [address] [place] [address] PCP - General Internal Medicine 03/21/17 13, Pharmacist [address] [place] [address] Pharmacist Pharmacy 06/17/21 Kaye Ortega MD [address] [place] [address] General Surgery 09/21/21 Ye Coello MD [address] [place], [place] [phone] General Surgery 10/13/21 Emilie Jauregui PA-C [address] [place] [address] Specialty Supervisor Intermediates Pulmonary and Critical Care Medicine 10/13/21 Ryan May MD [address] [place] [address] Specialty Supervisor Intermediates Vascular Surgery 10/13/21 Geronimo Medina, DO [address] [address] Merchandise Flow Team Member Cardiology 10/13/21 Tamika HARRELL News Production Assistant 09/26/17 Under Seal Operator Relationship Specialty Start Date End Date Daija Morton MD [address] [place] [address] PCP - General Internal Medicine 03/21/17 13, Pharmacist [address] [place] [address] Pharmacist Pharmacy 06/17/21 Kaye Ortega MD [address] [place] [address] General Surgery 09/21/21 Ye Coello MD [address] [place], [place] [phone] General Surgery 10/13/21 Emilie Jauregui PA-C [address] [place] [address] Specialty Supervisor Intermediates Pulmonary and Critical Care Medicine 10/13/21 Ryan May MD [address] [place], [place] 747[address] Specialty Supervisor Intermediates Vascular Surgery 10/13/21 Geronimo Medina DO [address] [phone] Merchandise Flow Team Member Cardiology 10/13/21 Tamika Canales Tripp [facility] News Production Assistant 09/26/17 Under Seal Operator Relationship Specialty Start Date End Date Daija Morton MD [address] [place] [address] PCP - General Internal Medicine 03/21/17 13, Pharmacist [address] [place] [address] Pharmacist Pharmacy 06/17/21 Kaye Ortega MD [address] [place] [address] General Surgery 09/21/21 Ye Coello MD [address] [place], [place] [id number] General Surgery 10/13/21 Emilie Jauregui PA-C [address] [place] [address] Specialty Supervisor Intermediates Pulmonary and Critical Care Medicine 10/13/21 Ryan May MD [address] [place] [address] Specialty Supervisor Intermediates Vascular Surgery 10/13/21 Geronimo Medina DO [address] [address] Merchandise Flow Team Member Cardiology 10/13/21 Tamika HARRELL News Production Assistant 09/26/17 Under Seal Operator Relationship Specialty Start Date End Date Daija Morton MD [address] [place] [address] PCP - General Internal Medicine 03/21/17 13, Pharmacist [address] [place] [address] Pharmacist Pharmacy 06/17/21 Kaye Ortega MD [address] [place] [address] General Surgery 09/21/21 Ye Coello MD [address] [place], [place] 079615 General Surgery 10/13/21 Emilie Jauregui PA-C [address] [place] [address] Specialty Supervisor Intermediates Pulmonary and Critical Care Medicine 10/13/21 Ryan May MD [address] [place] [address] Specialty Supervisor Intermediates Vascular Surgery 10/13/21 Geronimo Medina DO [address] [address] Merchandise Flow Team Member Cardiology 10/13/21 Tamika HARRELL News Production Assistant 09/26/17 Under Seal Operator Relationship Specialty Start Date End Date Daija Morton MD [address] [place] [address] PCP - General Internal Medicine 03/21/17 13, Pharmacist [address]757 [place] [address] Pharmacist Pharmacy 06/17/21 Kaye Ortega MD [address] [place] [phone] General Surgery 09/21/21 Ye Coello MD [address] [place], [place] [phone] General Surgery 10/13/21 Emilie Jauregui PA-C [address] [place], [place] [phone] Specialty Supervisor Intermediates Pulmonary and Critical Care Medicine 10/13/21 Ryan May MD [address] [place], [place] 2244595 Specialty Supervisor Intermediates Vascular Surgery 10/13/21 Geronimo Medina, [address] [phone] Merchandise Flow Team Member Cardiology 10/13/[address] [facility] News Production Assistant 09/26/17 Under Seal Operator Relationship Specialty Start Date End Date Daija Morton MD [address] [place], [place] [id number] PCP - General Internal Medicine 03/21/17 13, Pharmacist [address] [place] [address] Pharmacist Pharmacy 06/17/21 Kaye Ortega MD [address] [place] [phone] General Surgery 09/21/21 Ye Coello MD [address] [place], [place] [phone] General Surgery 10/13/21 Emilie Jauregui PA-C [address] [place] [address] Specialty Supervisor Intermediates Pulmonary and Critical Care Medicine 10/13/21 Ryan May MD [address] [place], [place] 0037795 Specialty Supervisor Intermediates Vascular Surgery 10/13/21 Geronimo Medina, [address] [address] Merchandise Flow Team Member Cardiology 10/13/[address] [facility] News Production Assistant 09/26/17 Under Seal Operator Relationship Specialty Start Date End Date Daija Morton MD [address] [place] [address] PCP - General Internal Medicine 03/21/17 13, Pharmacist [address] [place] [address] Pharmacist Pharmacy 06/17/21 Kaye Ortega MD [address] [place] [address] General Surgery 09/21/21 Ye Coello MD [address] [place] [address] General Surgery 10/13/21 Emilie Jauregui PA-C [address] [place] [address] Specialty Supervisor Intermediates Pulmonary and Critical Care Medicine 10/13/21 Ryan May MD [address] [place], [place] 6224695 Specialty Supervisor Intermediates Vascular Surgery 10/13/21 Geronimo Medina DO [address] [address] Merchandise Flow Team Member Cardiology 10/13/21 Tamika Almaguer [employer] News Production Assistant 09/26/17 Under Seal Operator Relationship Specialty Start Date End Date Daija Morton MD [address] [place] [address] PCP - General Internal Medicine 03/21/17 13, Pharmacist [address] [place] [address] Pharmacist Pharmacy 06/17/21 Kaye Ortega MD [address] [place] [address] General Surgery 09/21/21 Ye Coello MD [address] [place], [place] 723555 General Surgery 10/13/21 Emilie Jauregui PA-C [address] [place] [address] Specialty Supervisor Intermediates Pulmonary and Critical Care Medicine 10/13/21 Ryan May MD [address] [place] [address] Specialty Supervisor Intermediates Vascular Surgery 10/13/21 Geroniom Medina, DO [address] [address] Merchandise Flow Team Member Cardiology 10/13/21 Tamika Almaguer [employer] News Production Assistant 09/26/17 Under Seal Operator Relationship Specialty Start Date End Date Daija Morton MD [address] [place] [address] PCP - General Internal Medicine 03/21/17 13, Pharmacist [address]248 [place] [address] Pharmacist Pharmacy 06/17/21 04/12/22 Kaye Ortega MD [address] [place] [address] General Surgery 09/21/21 Ye Coello MD [address] [place] [place], [place] 033395 General Surgery 10/13/21 Emilie Jauregui PA-C [address] [place] [address] Specialty Supervisor Intermediates Pulmonary and Critical Care Medicine 10/13/21 Ryan May MD [address] [place] [address] Specialty Supervisor Intermediates Vascular Surgery 10/13/21 Geronimo Medina, [address] [address] Merchandise Flow Team Member Cardiology 10/13/21 Tamika Canales [facility] News Production Assistant 09/26/17 Team Status: Active Member Role Status Dates Dr. Daija Morton MD Family Provider Active Dr. Daija Morton MD Primary Care Provider Active Team Status: Inactive Member Role Status Dates Dr. Daija Morton MD Primary Care Provider Active Андрей Cooley Attending Provider, Referring Provider Ac tive Team Status: Inactive Member Role Status Dates Dr. Daija Morton MD Primary Care Provider Active Андрей Cooley Attending Provider Active Under Seal Operator Relationship Specialty Start Date End Date Daija Morton MD [address] [place], [place] 402167 [phone] PCP - General Internal Medicine 03/21/17 Kaye Ortega MD [address] [place] [address] General Surgery 09/21/21 Ye Coello MD [address] [place], [place] [id number] General Surgery 10/13/21 Emilie Jauregui PA-C [address] [place] [address] Specialty Supervisor Intermediates Pulmonary and Critical Care Medicine 10/13/21 Ryan May MD [address] [place] [address] Specialty Supervisor Intermediates Vascular Surgery 10/13/21 Geronimo Medina, DO [address] [address] Merchandise Flow Team Member Cardiology 10/13/21 Tamika HARRELL News Production Assistant 09/26/17 Under Seal Operator Relationship Specialty Start Date End Date Daija Morton MD [address] [place] [address] PCP - General Internal Medicine 03/21/17 Kaye Ortega MD [address] [place] [address] General Surgery 09/21/21 Ye Coello MD [address] [place], [place] 80550685 General Surgery 10/13/21 Emilie Jauregui PA-C [address] [place] [address] Specialty Supervisor Intermediates Pulmonary and Critical Care Medicine 10/13/21 Ryan May MD [address] [place] [address] Specialty Supervisor Intermediates Vascular Surgery 10/13/21 Geronimo Medina DO [address] [address] Merchandise Flow Team Member Cardiology 10/13/21 Tamika HARRELL News Production Assistant 09/26/17 Under Seal Operator Relationship Specialty Start Date End Date Daija Morton MD [address] [place] [address] PCP - General Internal Medicine 03/21/17 Kaye Ortega MD [address] [place] [address] General Surgery 09/21/21 Ye Coello MD [address] [place], [place] 283285 General Surgery 10/13/21 Emilie Jauregui PA-C [address] [place] [address] Specialty Supervisor Intermediates Pulmonary and Critical Care Medicine 10/13/21 Ryan May MD [address] [place] [address] Specialty Supervisor Intermediates Vascular Surgery 10/13/21 Geronimo Medina, DO [address] [address] Merchandise Flow Team Member Cardiology 10/13/21 Tamika Almaguer [facility] News Production Assistant 09/26/17 Under Seal Operator Relationship Specialty Start Date End Date Daija Morton MD [address] [place] [address] PCP - General Internal Medicine 03/21/17 Kaye Ortega MD [address] [place] [address] General Surgery 09/21/21 Ye Coello MD [address] [place] [address] General Surgery 10/13/21 Emilie Jauregui PA-C [address] [place] [address] Specialty Supervisor Intermediates Pulmonary and Critical Care Medicine 10/13/21 Ryan May MD [address] [place] [address] Specialty Supervisor Intermediates Vascular Surgery 10/13/21 Geronimo Medina, [address] [address] Merchandise Flow Team Member Cardiology 10/13/21 Tamika HARRELL News Production Assistant 09/26/17 Under Seal Operator Relationship Specialty Start Date End Date Daija Morton MD [address] [place] [address] PCP - General Internal Medicine 03/21/17 Kaye Ortega MD [address] [place] [address] General Surgery 09/21/21 Ye Coello MD [address] [place] [address] General Surgery 10/13/21 Emilie Jauregui, PA-C [address] [place] [address] Specialty Supervisor Intermediates Pulmonary and Critical Care Medicine 10/13/21 Ryan May MD [address] [place] [address] Specialty Supervisor Intermediates Vascular Surgery 10/13/21 Geronimo Medina, [address] [address] Merchandise Flow Team Member Cardiology 10/13/21 Tamika HARRELL News Production Assistant 09/26/17 Under Seal Operator Relationship Specialty Start Date End Date Daija Morton MD [address] [place] [address] PCP - General Internal Medicine 03/21/17 Kaye Ortega MD [address] [place] [address] General Surgery 09/21/21 Ye Coello MD [address] [place] [address] General Surgery 10/13/21 Emilie Jauregui PA-C [address] [place] [address] Specialty Supervisor Intermediates Pulmonary and Critical Care Medicine 10/13/21 Ryan May MD [address] [place], [place] 9795895 Specialty Supervisor Intermediates Vascular Surgery 10/13/21 Geronimo Medina, DO [address] [phone] Merchandise Flow Team Member Cardiology 10/13/[address] Canales [address] [facility] News Production Assistant 09/26/17 Under Seal Operator Relationship Specialty Start Date End Date Daija Morton MD [address] [place] [address] PCP - General Internal Medicine 03/21/17 Kaye Ortega MD [address] [place] [address] General Surgery 09/21/21 Ye Coello MD [address] [place] [address] General Surgery 10/13/21 Emilie Jauregui PA-C [address] [place] [address] Specialty Supervisor Intermediates Pulmonary and Critical Care Medicine 10/13/21 Ryan May MD [address] [place], [place] [address]26[address] Specialty Supervisor Intermediates Vascular Surgery 10/13/21 Geronimo Medina, DO [address] [address] Merchandise Flow Team Member Cardiology 10/13/21 Tamika Almaguer [employer] News Production Assistant 09/26/17 Under Seal Operator Relationship Specialty Start Date End Date Daija Morton MD [address] [place], [place] 408731 PCP - General Internal Medicine 03/21/17 Kaye Ortega MD [address] [place] [address] General Surgery 09/21/21 Ye Coello MD [address] [place], [place] [phone] General Surgery 10/13/21 Emilie Jauregui PA-C [address] [place], [place] 508081 Specialty Supervisor Intermediates Pulmonary and Critical Care Medicine 10/13/21 Ryan May MD [address] [place] [address] Specialty Supervisor Intermediates Vascular Surgery 10/13/21 Geronimo Medina DO [address] [address] Merchandise Flow Team Member Cardiology 10/13/21 Tamika HARRELL News Production Assistant 09/26/17 Team Status: Inactive Member Role Status Dates Dr. Daija Morton MD Primary Care Provider Active Андрей RAIN Attending Provider Active Team Status: Inactive Member Role Status Dates Dr. Daija Morton MD Primary Care Provider Active Dr. Jaden Jauregui MD Emergency Provider Active Under Seal Operator Relationship Specialty Start Date End Date Daija Morton MD [address] [place] [address] PCP - General Internal Medicine 03/21/17 Kaye Ortega MD [address] [facility] [place] [address] General Surgery 09/21/21 Ye Coello MD [address] [place] [address] General Surgery 10/13/21 Emilie Jauregui PA-C [address] [facility] [place] [address] Specialty Supervisor Intermediates Pulmonary and Critical Care Medicine 10/13/21 Ryan May MD [address] [place] [address] Specialty Supervisor Intermediates Vascular Surgery 10/13/21 Geronimo Medina DO [address] [address] Merchandise Flow Team Member Cardiology 10/13/21 Tamika Almaguer [facility] News Production Assistant 09/26/17 Under Seal Operator Relationship Specialty Start Date End Date Daija Morton MD [address] [place] [address] PCP - General Internal Medicine 03/21/17 Kaye Ortega MD [address] [place] [address] General Surgery 09/21/21 Ye Coello MD [address] [place] [address] General Surgery 10/13/21 Emilie Jauregui PA-C [address] [place] [address] Specialty Supervisor Intermediates Pulmonary and Critical Care Medicine 10/13/21 Ryan May MD [address] [place] [address] Specialty Supervisor Intermediates Vascular Surgery 10/13/21 Geronimo Medina DO [address] [address] Merchandise Flow Team Member Cardiology 10/13/21 Tam[address] Meyermary Tripp [facility] News Production Assistant 09/26/17 Team Status: Inactive Member Role Status Dates Dr. Daija Morton MD Primary Care Provider Active Dr. Jaden Jauregui MD Attending Provider, Emergency Provider Active Team Status: Inactive Member Role Status Dates Dr. Daija Morton MD Primary Care Provider Active Dr. Huber Alvarado MD Emergency Provider Active Under Seal Operator Relationship Specialty Start Date End Date Daija Morton MD [address] [place], [place] 509091 PCP - General Internal Medicine 03/21/17 Kaye Ortega MD [address] [facility] [place] [address] General Surgery 09/21/21 Ye Coello MD [address] [place], [place] 097485 General Surgery 10/13/21 Emilie Jauregui PA-C [address] [place] [address] Specialty Supervisor Intermediates Pulmonary and Critical Care Medicine 10/13/21 Ryan May MD [address] [facility] [place] [address] Specialty Supervisor Intermediates Vascular Surgery 10/13/21 Geronimo Medina DO [address] [address] Merchandise Flow Team Member Cardiology 10/13/21 Tamika Almaguer [facility] News Production Assistant 09/26/17 Team Status: Inactive Member Role Status Dates Dr. Daija Morton MD Primary Care Provider Active Dr. Huber Alvarado MD Attending Provider, Emergency Provider Active Under Seal Operator Relationship Specialty Start Date End Date Daija Morton MD [address] [place], [place] [address] PCP - General Internal Medicine 03/21/17 Kaye Ortega MD [address] [place] [phone] General Surgery 09/21/21 Ye Coello MD [address] [place], [place] [address] General Surgery 10/13/21 Emilie Jauregui PA-C [address] [place] [address] Specialty Supervisor Intermediates Pulmonary and Critical Care Medicine 10/13/21 Ryan May MD [address] [facility] [address] Specialty Supervisor Intermediates Vascular Surgery 10/13/21 Geronimo Medina DO [address] [address] Merchandise Flow Team Member Cardiology 10/13/[address] [facility] News Production Assistant 09/26/17 Team Status: Active Member Role Status Dates Dr. Daija Morton MD Primary Care Provider Active Dr. Huber Alvarado MD Emergency Provider Active Dr. Fran Cartwright MD Admit Provider, Attending Provider, Other Provider Active Team Status: Inactive Member Role Status Dates Dr. Daija Morton MD Primary Care Provider Active Dr. Lesly Bush DO Attending Provider, Emergency P bao Active Team Status: Inactive Member Role Status Dates Dr. Daija Morton MD Primary Care Provider Active Dr. Aris Dixon MD Emergency Provider Active Team Status: Active Member Role Status Dates Dr. Daija Morton MD Primary Care Provider Active Dr. Huber Alvarado MD Emergency Provider Active Dr. Fran Cartwright MD Admit Provider, Attending Pro vider Active Under Seal Operator Relationship Specialty Start Date End Date Daija Morton MD [address] [place], [place] [address] PCP - General Internal Medicine 03/21/17 Kaye Ortega MD [address] [place] [phone] General Surgery 09/21/21 Ye Coello MD [address] [place], [place] [address]35 General Surgery 10/13/21 Emilie Jauregui PA-C [address] [place], [place] [address] Specialty Supervisor Intermediates Pulmonary and Critical Care Medicine 10/13/21 Ryan May MD [address] [place] [address] Specialty Supervisor Intermediates Vascular Surgery 10/13/21 Geronimo Medina DO [address] [address] Merchandise Flow Team Member Cardiology 10/13/[address] [facility] News Production Assistant 09/26/17 Team Status: Active Member Role Status Dates Dr. Daija Morton MD Primary Care Provider Active Dr. Huber Alvarado MD Emergency Provider Active Dr. Fran Cartwright MD Admit Provider, Other Provide r Active Dr. Celia Toribio MD Attending Provider, Other Provid er Active Team Status: Active Member Role Status Dates Dr. Daija Morton MD Primary Care Provider Active Dr. Huber Alvarado MD Emergency Provider Active Dr. Fran Cartwright MD Admit Provider, Other Provide r Active Dr. Frankie Galindo MD Attending Provider, Other Provid er Active Dr. Celia Toribio MD Other Provider Active Team Status: Active Member Role Status Dates Dr. Daija Morton MD Primary Care Provider Active Dr. Huber Alvarado MD Emergency Provider Active Dr. Fran Catrwright MD Admit Provider, Attending Provider, Other Provider Active Dr. Frankie Galindo MD Other Provider Active Dr. Celia Toribio MD Other Provider Active Team Status: Active Member Role Status Dates Dr. Daija Morton MD Primary Care Provider Active Dr. Huber Alvarado MD Emergency Provider Active Dr. Fran Cartwright MD Admit Provider, Other Provide r Active Dr. Frankie Galindo MD Attending Provider, Other Provid er Active Dr. Celia Toribio MD Other Provider Active Dr. Elton Moore MD Other Provider Active Team Status: Inactive Member Role Status Dates Dr. Daija Morton MD Primary Care Provider Active Dr. Huber Alvarado MD Emergency Provider Active Dr. Fran Cartwright MD Admit Provider, Other Provide r Active Dr. Frankie Galindo MD Attending Provider Active Dr. Celia Toribio MD Other Provider Active Dr. Elton Moore MD Other Provider Active Under Seal Operator Relationship Specialty Start Date End Date Daija Morton MD [address] [place] [address] PCP - General Internal Medicine 03/21/17 Kaye Ortega MD [address] [place] [address] General Surgery 09/21/21 Ye Coello MD [address] [place] [address] General Surgery 10/13/21 Emilie Jauregui PA-C [address] [place] [address] Specialty Supervisor Intermediates Pulmonary and Critical Care Medicine 10/13/21 Ryan May MD [address] [facility] [address] Specialty Supervisor Intermediates Vascular Surgery 10/13/21 Geronimo Medina DO [address] [address] Merchandise Flow Team Member Cardiology 10/13/21 Tamika Almaguer [facility] News Production Assistant 09/26/17 Under Seal Operator Relationship Specialty Start Date End Date Daija Morton MD [address] [place], [place] [address]195 [phone] PCP - General Internal Medicine 03/21/17 Kaye Ortega MD [address] [facility] [place] [place] [address] General Surgery 09/21/21 Ye Colelo MD [address] [place] [address] General Surgery 10/13/21 Emilie Jauregui PA-C [address] [place] [address] Specialty Supervisor Intermediates Pulmonary and Critical Care Medicine 10/13/21 Ryan May MD [address] [place] [address] Specialty Supervisor Intermediates Vascular Surgery 10/13/21 Geronimo Medina DO [address] [place] [address] Merchandise Flow Team Member Cardiology 10/13/21 Tamika Almaguer [employer] News Production Assistant 09/26/17 Under Seal Operator Relationship Specialty Start Date End Date Daija Morton MD [address] [place], [place] [address]01 PCP - General Internal Medicine 03/21/17 Kaye Ortega MD [address] [place] [phone] General Surgery 09/21/21 Ye Coello MD [address] [place], [place] 239105 General Surgery 10/13/21 Emilie Jauregui PA-C [address] [place], [place] 488[address] Specialty Supervisor Intermediates Pulmonary and Critical Care Medicine 10/13/21 Ryan May MD [address] [place] [address] Specialty Supervisor Intermediates Vascular Surgery 10/13/21 Geronimo Medina DO [address] [place] [address] Merchandise Flow Team Member Cardiology 10/13/21 Tamika Almaguer [facility] News Production Assistant 09/26/17 Team Status: Inactive Member Role Status Dates Dr. Daija Morton MD Primary Care Provider Active Dr. Aris Dixon MD Attending Provider, Emergency Pro vider Active Team Status: Active Member Role Status Dates Dr. Daija Morton MD Primary Care Provider Active Андрей RAIN Attending Provider, Referring Provide r Active Team Status: Active Member Role Status Dates Dr. Daija Morton MD Primary Care Provider Active Андрей RAIN Attending Provider Active Team Status: Inactive Member Role Status Dates Dr. Daija Morton MD Primary Care Provi ashley, Attending Provider, Referring Provider Active Under Seal Operator Relationship Specialty Start Date End Date Daija Morton MD [address] [place], [place] [address]661 PCP - General Internal Medicine 03/21/17 Kaye Ortega MD [address] [place] [phone] General Surgery 09/21/21 Ye Coello MD [address] [place], [place] [address] General Surgery 10/13/21 Emilie Jauregui PANeshaC [address] [place], [place] [address] Specialty Supervisor Intermediates Pulmonary and Critical Care Medicine 10/13/21 Ryan May MD [address] [place] [address] Specialty Supervisor Intermediates Vascular Surgery 10/13/21 Geronimo Medina DO [address] [place] [address] Merchandise Flow Team Member Cardiology 10/13/21 Tamika Almaguer [facility] News Production Assistant 09/26/17 Team Status: Active Member Role Status Dates Dr. Daija Morton MD Primary Care Provider Active Dr. Raul Melchor DO Emergency Provider Active Dr. Андрей Cooley MD Attending Provider Active Team Status: Active Member Role Status Dates Dr. Daija Morton MD Primary Care Provider Active Dr. Raul Melchor DO Emergency Provider Active Dr. Андрей Cooley MD Admit Provider, Attending Provid er Active Team Status: Active Member Role Status Dates Dr. Daija Morton MD Primary Care Provider Active Dr. Raul Melchor DO Emergency Provider Active Dr. Андрей Cooley MD Admit Provider, Other Provider A ctive Dr. Roman Patel , DO Attending Provider, Other Provider Active Team Status: Inactive Member Role Status Dates Dr. Daija Morton MD Primary Care Provider Active Dr. Raul Melchor DO Emergency Provider Active Dr. Андрей Cooley MD Admit Provider, Other Provider A ctive Dr. Roman Patel , DO Attending Provider Active Team Status: Active Member Role Status Dates Dr. Daija Morton MD Primary Care Provider Active Dr. Huber Alvarado MD Emergency Provider Active Dr. Brody Maynard MD Admit Provider, Attending Provi ashley Active Team Status: Active Member Role Status Dates Dr. Daija Morton MD Primary Care Provider Active Dr. Huber Alvarado MD Emergency Provider Active Dr. Brody Maynard MD Admit Provider, Other Provider Active Dr. Ryan Guerin DO Attending Provider, Other Pro vider Active Team Status: Inactive Member Role Status Dates Dr. Daija Morton MD Primary Care Provider Active Dr. Huber Alvarado MD Emergency Provider Active Dr. Brody Maynard MD Admit Provider, Other Provider Active Dr. Ryan Guerin DO Attending Provider Active Under Seal Operator Relationship Specialty Start Date End Date Daija Morton MD [address] [place], [place] [address]201 PCP - General Internal Medicine 03/21/17 Kaye Ortega MD [address] [place] [address] General Surgery 09/21/21 Ye Coello MD [address] [place], [place] 825665 General Surgery 10/13/21 Emilie Jauregui PA-C [address] [place], [place] 553178 [phone] Specialty Supervisor Intermediates Pulmonary and Critical Care Medicine 10/13/21 Ryan May MD [address] [facility] [place], [place] [address] Specialty Supervisor Intermediates Vascular Surgery 10/13/21 Geronimo Medina DO [address] [place] [address] Merchandise Flow Team Member Cardiology 10/13/21 Tamika Canales [facility] News Production Assistant 09/26/17 Under Seal Operator Relationship Specialty Start Date End Date Daija Morton MD [address] [place], [place] [id number] PCP - General Internal Medicine 03/21/17 Kaye Ortega MD [address] [place] [phone] General Surgery 09/21/21 Ye Coello MD [address] [place] [place], [place] [address] General Surgery 10/13/21 Emilie Jauregui PA-C [address] [place] [address] Specialty Supervisor Intermediates Pulmonary and Critical Care Medicine 10/13/21 Ryan May MD [address] [facility] [address] Specialty Supervisor Intermediates Vascular Surgery 10/13/21 Geronimo Medina DO [address] [place] [address] Merchandise Flow Team Member Cardiology 10/13/21 Tamika HARRELL News Production Assistant 09/26/17 Under Seal Operator Relationship Specialty Start Date End Date Daija Morton MD [address] [place] [address] PCP - General Internal Medicine 03/21/17 Kaye Ortega MD [address] [place] [address] General Surgery 09/21/21 Ye Coello MD [address] [place] [address] General Surgery 10/13/21 Emilie Jauregui, PA-C [address] [place] [address] Specialty Supervisor Intermediates Pulmonary and Critical Care Medicine 10/13/21 Ryan May MD [address] [place] [address] Specialty Supervisor Intermediates Vascular Surgery 10/13/21 Geronimo Medina DO [address] [place] [address] Merchandise Flow Team Member Cardiology 10/13/21 Tamika HARRELL News Production Assistant 09/26/17 Under Seal Operator Relationship Specialty Start Date End Date Daija Morton MD [address] [place], [place] [address]871 PCP - General Internal Medicine 03/21/17 Kaye Ortega MD [address] [place] [address] General Surgery 09/21/21 Ye Coello MD [address] [place], [place] [address]25 General Surgery 10/13/21 Emilie Jauregui PA-C [address] [place] [address] Specialty Supervisor Intermediates Pulmonary and Critical Care Medicine 10/13/21 Ryan May MD [address] [place] [address] Specialty Supervisor Intermediates Vascular Surgery 10/13/21 Geronimo Medina DO [address] [place] [address] Merchandise Flow Team Member Cardiology 10/13/21 Tamika Almaguer [facility] News Production Assistant 09/26/17 Under Seal Operator Relationship Specialty Start Date End Date Daija Morton MD [address] [place] [address] PCP - General Internal Medicine 03/21/17 Kaye Ortega MD [address] [place] [address] General Surgery 09/21/21 Ye Coello MD [address] [place] [address] General Surgery 10/13/21 Emilie Jauregui PA-C [address] [place] [address] Specialty Supervisor Intermediates Pulmonary and Critical Care Medicine 10/13/21 Ryan May MD [address] [place] [address] Specialty Supervisor Intermediates Vascular Surgery 10/13/21 Geronimo Medina DO [address] [place] [address] Merchandise Flow Team Member Cardiology 10/13/21 Tamika Almaguer [facility] News Production Assistant 09/26/17 Under Seal Operator Relationship Specialty Start Date End Date Daija Morton MD [address] [place] [address] PCP - General Internal Medicine 03/21/17 Kaye Ortega MD [address] [place] [address] General Surgery 09/21/21 Ye Coello MD [address] [place], [place] 9[address]25 General Surgery 10/13/21 Emilie Jauregui PA-C [address] [place] [address] Specialty Supervisor Intermediates Pulmonary and Critical Care Medicine 10/13/21 Ryan May MD [address] [place] [address] Specialty Supervisor Intermediates Vascular Surgery 10/13/21 Geronimo Medina DO [address] [place] [address] Merchandise Flow Team Member Cardiology 10/13/21 Tamika HARRELL News Production Assistant 09/26/17 Under Seal Operator Relationship Specialty Start Date End Date Daija Morton MD [address] [place], [place] [address]101 PCP - General Internal Medicine 03/21/17 Kaye Ortega MD [address] [place] [address] General Surgery 09/21/21 Ye Coello MD [address] [place] [address] General Surgery 10/13/21 Emilie Jauregui PA-C [address] [place] [address] Specialty Supervisor Intermediates Pulmonary and Critical Care Medicine 10/13/21 Ryan May MD [address] [facility] [address] Specialty Supervisor Intermediates Vascular Surgery 10/13/21 Geronimo Medina DO [address] [place] [address] Merchandise Flow Team Member Cardiology 10/13/21 Tamika HARRELL News Production Assistant 09/26/17 Under Seal Operator Relationship Specialty Start Date End Date Daija Morton MD [address] [place] [address] PCP - General Internal Medicine 03/21/17 Kaye Ortega MD [address] [place] [address] General Surgery 09/21/21 Ye Coello MD [address] [place], [place] [address] General Surgery 10/13/21 Emilie Jauregui PA-C [address] [facility] [place] [address] Specialty Supervisor Intermediates Pulmonary and Critical Care Medicine 10/13/21 Ryan May MD [address] [place] [address] Specialty Supervisor Intermediates Vascular Surgery 10/13/21 Geronimo Medina DO [address] [place] [address] Merchandise Flow Team Member Cardiology 10/13/21 Tamika Almaguer [facility] News Production Assistant 09/26/17 Under Seal Operator Relationship Specialty Start Date End Date Daija Morton MD [address] [place], [place] [id number] PCP - General Internal Medicine 03/21/17 Kaye Ortega MD [address] [place] [address] General Surgery 09/21/21 Ye Coello MD [address] [place], [place] [address] General Surgery 10/13/21 Emilie Jauregui PA-C [address] [place], [place] [address] [phone] Specialty Supervisor Intermediates Pulmonary and Critical Care Medicine 10/13/21 Ryan May MD [address] [place] [address] Specialty Supervisor Intermediates Vascular Surgery 10/13/21 Geronimo Medina DO [address] [place] [address] Merchandise Flow Team Member Cardiology 10/13/21 Tamika HARRELL News Production Assistant 09/26/17 Under Seal Operator Relationship Specialty Start Date End Date Daija Morton MD [address] [place] [address] PCP - General Internal Medicine 03/21/17 Beatriz Correa CNP [address] [place] [id number] Referring 09/28/20 10/12/21 Daija Morton MD [address] [place], [place] 2965[address] Home Care Provider Internal Medicine 09/28/20 10/12/21 Fco Franklin, О[address] [place], [place] [id number] Quality Control Checker 10/08/20 12/21/20 Tamika HARRELL News Production Assistant 09/26/17 Under Seal Operator Relationship Specialty Start Date End Date Daija Morton MD [address] [place] [address] PCP - General Internal Medicine 03/21/17 Kaye Ortega MD [address] [place] [address] General Surgery 09/21/21 Ye Coello MD [address] [place], [place] [address] General Surgery 10/13/21 Emilie Jauregui PA-Edilma [address] [place], [place] [address] Specialty Supervisor Intermediates Pulmonary and Critical Care Medicine 10/13/21 Ryan May MD [address] [facility] [place] [place] [address] Specialty Supervisor Intermediates Vascular Surgery 10/13/21 Geronimo Medina DO [address] [place] [address] Merchandise Flow Team Member Cardiology 10/13/21 Tamika [facility] News Production Assistant 09/26/17 Under Seal Operator Relationship Specialty Start Date End Date Daija Morton MD [address] [place], [place] [id number] PCP - General Internal Medicine 03/21/17 Kaye Ortega MD [address] [place] [phone] General Surgery 09/21/21 Ye Coello MD [address] [place] [address] General Surgery 10/13/21 Emilie Jauregui, YARIEL-Edilma [address] [place] [address] Specialty Supervisor Intermediates Pulmonary and Critical Care Medicine 10/13/21 Ryan May MD [address] [place] [address] Specialty Supervisor Intermediates Vascular Surgery 10/13/21 Geronimo Medina DO [address] [place] [address] Merchandise Flow Team Member Cardiology 10/13/21 Tamika HARRELL News Production Assistant 09/26/17 Under Seal Operator Relationship Specialty Start Date End Date Daija Morton MD [address] [place], [place] [address]281 PCP - General Internal Medicine 03/21/17 Kaye Ortega MD [address] [place] [address] General Surgery 09/21/21 Ye Coello MD [address] [place], [place] 586055 General Surgery 10/13/21 Emilie Jauregui PA-C [address] [place] [address] Specialty Supervisor Intermediates Pulmonary and Critical Care Medicine 10/13/21 Ryan May MD [address] [place] [address] Specialty Supervisor Intermediates Vascular Surgery 10/13/21 Geronimo Medina DO [address] [place] [address] Merchandise Flow Team Member Cardiology 10/13/21 Tamika HARRELL News Production Assistant 09/26/17 Under Seal Operator Relationship Specialty Start Date End Date Daija Morton MD [address] [place], [place] [address] PCP - General Internal Medicine 03/21/17 Kaye Ortega MD [address] [place] [address] General Surgery 09/21/21 Ye Coello MD [address] [place] [address] General Surgery 10/13/21 Emilie Jauregui PA-C [address] [place] [address] Specialty Supervisor Intermediates Pulmonary and Critical Care Medicine 10/13/21 Ryan May MD [address] [place] [address] Specialty Supervisor Intermediates Vascular Surgery 10/13/21 Geronimo Medina DO [address] [place] [address] Merchandise Flow Team Member Cardiology 10/13/21 [facility] News Production Assistant 09/26/17 Team Status: Active Member Role Status Dates Dr. Daija Morton MD Primary Care Provider Active Team Status: Active Member Role Status Dates Dr. Daija Morton MD Primary Care Provider Active Start: July 15, 2024 Dr. Carla RAIN MD Attending Provider Active Start: July 15, 2024 Team Status: Active Member Role Status Dates Dr. Daija Morton MD Primary Care Provider Active Start: August 25, 2024 Dr. Jaden Jauregui MD Emergency Provider Active Start: August 25, 2024 Dr. Lisha Talamantes DO Admit Provider Active Start : August 25, 2024 Dr. Lisha Talamantes DO Attending Provider Active S tart: August 25, 2024 Team Status: Active Member Role Status Dates Dr. Daija Morton MD Primary Care Provider Active Start: August 25, 2024 Dr. Jaden Jauregui MD Emergency Provider Active Start: August 25, 2024 Dr. Lisha Talamantes DO Admit Provider Active Start : August 25, 2024 Dr. Lisha Talamantes DO Attending Provider Active S tart: August 25, 2024 Dr. Lisha Talamantes DO Other Provider Active Start : August 25, 2024 Team Status: Active Member Role Status Dates Dr. Daija Morton MD Primary Care Provider Active Start: August 26, 2024 Dr. Jaden Jauregui MD Emergency Provider Active Start: August 26, 2024 Dr. Lisha Talamantes DO Admit Provider Active Start : August 26, 2024 Dr. Lisha Talamantes DO Other Provider Active Start : August 26, 2024 Dr. Celia Toribio MD Attending Provider Active Start: August 26, 2024 Dr. Celia Toribio MD Other Provider Active Star t: August 26, 2024 Team Status: Active Member Role Status Dates Dr. Daija Morton MD Primary Care Provider Active Start: August 27, 2024 Dr. Jaden Jauregui MD Emergency Provider Active Start: August 27, 2024 Dr. Lisha Talamantes DO Admit Provider Active Start : August 27, 2024 Dr. Lisah Talamantes DO Other Provider Active Start : August 27, 2024 Dr. Celia Toribio MD Attending Provider Active Start: August 27, 2024 Dr. Celia Toribio MD Other Provider Active Star t: August 27, 2024 Team Status: Inactive Member Role Status Dates Dr. Daija Morton MD Primary Care Provider Active Start: August 27, 2024 End: September 02, 2024 Dr. Jaden Jauregui MD Emergency Provider Active Start: August 27, 2024 End: September 02, 2024 Dr. Lisha Talamantes DO Admit Provider Active Start : August 27, 2024 End: September 02, 2024 Dr. Lisha Talamantes DO Other Provider Active Start : August 27, 2024 End: September 02, 2024 Dr. Elton Moore MD Other Provider Active Start: August 27, 2024 End: September 02, 2024 Dr. Brody Maynard MD Attending Provider Active Start: August 27, 2024 End: September 02, 2024 Dr. Celia Toribio MD Other Provider Active Star t: August 27, 2024 End: September 02, 2024 Team Status: Active Member Role Status Dates Dr. Daija Morton MD Primary Care Provider Active Start: August 28, 2024 Dr. Jaden Jauregui MD Emergency Provider Active Start: August 28, 2024 Dr. Lisha Talamantes DO Admit Provider Active Start : August 28, 2024 Dr. Lisha Talamantes DO Other Provider Active Start : August 28, 2024 Dr. Celia Toribio MD Attending Provider Active Start: August 28, 2024 Dr. Celia Toribio MD Other Provider Active Star t: August 28, 2024 Team Status: Active Member Role Status Dates Dr. Daija Morton MD Primary Care Provider Active Start: August 29, 2024 Dr. Jaden Jauregui MD Emergency Provider Active Start: August 29, 2024 Dr. Lisha Talamantes DO Admit Provider Active Start : August 29, 2024 Dr. Lisha Talamantes DO Other Provider Active Start : August 29, 2024 Dr. Celia Toribio MD Attending Provider Active Start: August 29, 2024 Dr. Celia Toribio MD Other Provider Active Star t: August 29, 2024 Dr. Elton Moore MD Other Provider Active Start: August 29, 2024 Team Status: Active Member Role Status Dates Dr. Daija Morton MD Primary Care Provider Active Start: August 30, 2024 Dr. Jaden Jauregui MD Emergency Provider Active Start: August 30, 2024 Dr. Lisha Talamantes DO Admit Provider Active Start : August 30, 2024 Dr. Lisha Talamantes DO Other Provider Active Start : August 30, 2024 Dr. Celia Toribio MD Attending Provider Active Start: August 30, 2024 Dr. Celia Toribio MD Other Provider Active Star t: August 30, 2024 Dr. Elton Moore MD Other Provider Active Start: August 30, 2024 Team Status: Active Member Role Status Dates Dr. Daija Morton MD Primary Care Provider Active Start: August 31, 2024 Dr. Jaden Jauregui MD Emergency Provider Active Start: August 31, 2024 Dr. Lisha Talamantes DO Admit Provider Active Start : August 31, 2024 Dr. Lisha Talamantes DO Other Provider Active Start : August 31, 2024 Dr. Celia Toribio MD Attending Provider Active Start: August 31, 2024 Dr. Celia Toribio MD Other Provider Active Star t: August 31, 2024 Dr. Elton Moore MD Other Provider Active Start: August 31, 2024 Team Status: Active Member Role Status Dates Dr. Daija Morton MD Primary Care Provider Active Start: September 01, 2024 Dr. Jaden Jauregui MD Emergency Provider Active Start: September 01, 2024 Dr. Lisha Talamantes DO Admit Provider Active Start : September 01, 2024 Dr. Lisha Talamantes DO Other Provider Active Start : September 01, 2024 Dr. Celia Toribio MD Attending Provider Active Start: September 01, 2024 Dr. Celia Toribio MD Other Provider Active Star t: September 01, 2024 Dr. Elton Moore MD Other Provider Active Start: September 01, 2024 Team Status: Active Member Role Status Dates Dr. Daija Morton MD Primary Care Provider Active Start: September 02, 2024 Dr. Jaden Jauregui MD Emergency Provider Active Start: September 02, 2024 Dr. Lisha Talamantes DO Admit Provider Active Start : September 02, 2024 Dr. Lisha Talamantes DO Other Provider Active Start : September 02, 2024 Dr. Eltno Moore MD Other Provider Active Start: September 02, 2024 Dr. Brody Maynard MD Attending Provider Active Start: September 02, 2024 Dr. Brody Maynard MD Other Provider Active Sta rt: September 02, 2024 Dr. Celia Toribio MD Other Provider Active Star t: September 02, 2024 Team Status: Active Member Role Status Dates Dr. Daija Morton MD Primary Care Provider Active Start: October 16, 2024 Dr. Carla RAIN MD Attending Provider Active Start: October 16, 2024 Team Status: Inactive Member Role Status Dates Dr. Daija Morton MD Primary Care Provider Active Start: November 05, 2024 End: November 05, 2024 Dr. Carla RAIN MD Attending Provider Active Start: November 05, 2024 End: November 05, 2024 Under Seal Operator Relationship Specialty Start Date End Date Daija Morton MD [address] [place], [place] [id number] PCP - General Internal Medicine 03/21/17 Kaye Ortega MD [address] [place] [address] General Surgery 09/21/21 eY Coello MD [address] [place], [place] [address] General Surgery 10/13/21 Emilie Jauregui, PANeshaC [address] [place], [place] [address] Specialty Supervisor Intermediates Pulmonary and Critical Care Medicine 10/13/21 Ryan May MD [address] [place] [address] Specialty Supervisor Intermediates Vascular Surgery 10/13/21 Geronimo Medina DO [address] [place] [address] Merchandise Flow Team Member Cardiology 10/13/21 Anjel Braga APRN.CNP [address] [place] [address] Public Services Assistant Internal Medicine 05/26/24 Tamika HARRELL News Production Assistant 09/26/17 Under Seal Operator Relationship Specialty Start Date End Date Daija Morton MD [address] [place] [address] PCP - General Internal Medicine 03/21/17 Kaye Ortega MD [address] [facility] [place] [address] General Surgery 09/21/21 Ye Coello MD [address] [place] [address] General Surgery 10/13/21 Emilie Jauregui PANeshaC [address] [facility] [place], [place] [phone] Specialty Supervisor Intermediates Pulmonary and Critical Care Medicine 10/13/21 Ryan May MD [address] [place] [address] Specialty Supervisor Intermediates Vascular Surgery 10/13/21 Geronimo Medina DO [address] [place] [address] Merchandise Flow Team Member Cardiology 10/13/21 Anjel Braga APRN.ASSISTANT PASTRY CHEF [address] [place] [address] Public Services Assistant Internal Medicine 05/26/24 Tamika Almaguer [facility] News Production Assistant 09/26/17 Under Seal Operator Relationship Specialty Start Date End Date Daija Morton MD [address] [place] [address] PCP - General Internal Medicine 03/21/17 Kaye Ortega MD [address] [place] [address] General Surgery 09/21/21 Ye Coello MD [address] [place], [place] [address] General Surgery 10/13/21 Emilie Jauregui PA-C [address] [facility] [place], [place] [address] Specialty Supervisor Intermediates Pulmonary and Critical Care Medicine 10/13/21 Ryan May MD [address] [place] [address] Specialty Supervisor Intermediates Vascular Surgery 10/13/21 Geronimo Medina DO [address] [place] [address] Merchandise Flow Team Member Cardiology 10/13/21 Anjel Braga APRN.ASSISTANT PASTRY CHEF [address] [place], [place] [phone] Public Services Assistant Internal Medicine 05/26/24 Tamika Canales [facility] News Production Assistant 09/26/17 Under Seal Operator Relationship Specialty Start Date End Date Daija Morton MD [address] [place], [place] [id number] PCP - General Internal Medicine 03/21/17 Kaye Ortega MD [address] [place] [id number] General Surgery 09/21/21 Ye Coello MD [address] [place], [place] [id number] General Surgery 10/13/21 Emilie Jauregui PA-C [address] [place], [place] [address] Specialty Supervisor Intermediates Pulmonary and Critical Care Medicine 10/13/21 Ryan May MD [address] [place] [address] Specialty Supervisor Intermediates Vascular Surgery 10/13/21 Geronimo Medina DO [address] [place] [address] Merchandise Flow Team Member Cardiology 10/13/21 Anjel Braga APRN.ASSISTANT PASTRY CHEF [address] [place], [place] [phone] Public Services Assistant Internal Medicine 05/26/24 Tamika Almaguer [facility] News Production Assistant 09/26/17 Under Seal Operator Relationship Specialty Start Date End Date Daija Morton MD [address] [place], [place] [address] PCP - General Internal Medicine 03/21/17 Kaye Ortega MD [address] [place] [phone] General Surgery 09/21/21 Ye Coello MD [address] [place], [place] [address] General Surgery 10/13/21 Emilie Jauregui PA-C [address] [facility] [place] [place] [id number] Specialty Supervisor Intermediates Pulmonary and Critical Care Medicine 10/13/21 Ryan May MD [address] [place] [address] Specialty Supervisor Intermediates Vascular Surgery 10/13/21 Geronimo Medina DO [address] [place] [address] Merchandise Flow Team Member Cardiology 10/13/21 Anjel Braga APRN.ASSISTANT PASTRY CHEF [address] [place] [address] Public Services Assistant Internal Medicine 05/26/24 [facility] News Production Assistant 09/26/17 Under Seal Operator Relationship Specialty Start Date End Date Daija Morton MD [address] [place], [place] [address] PCP - General Internal Medicine 03/21/17 Kaye Ortega MD [address] [place] [address] General Surgery 09/21/21 Ye Coello MD [address] [place], [place] [address] General Surgery 10/13/21 Emilie Jauregui, PA-C [address] [place] [address] Specialty Supervisor Intermediates Pulmonary and Critical Care Medicine 10/13/21 Ryan May MD [address] [place] [address] Specialty Supervisor Intermediates Vascular Surgery 10/13/21 Geronimo Medina DO [address] [place] [address] Merchandise Flow Team Member Cardiology 10/13/21 Anjel Braga APRN.ASSISTANT PASTRY CHEF [address] [place], [place] [address] [facility] Internal Medicine 05/26/24 Tamika HARRELL News Production Assistant 09/26/17 Goals (unrecognized section and content) Goals may be documented in a n alternate section No data available for this sectionGoals may be documented in an alternate sectionGoals may be documented in an alternate sectionGoals may be documented in an alternate sectionGoals may be documented in an alternate sectionGoals may be documented in an alternate sectionGoals may be documented in an alternate sectionGoals may be documented in an alternate section No data available for this sectionGoals may be documented in an alternate sectionGoals may be documented in an alternate sectionGoals may be documented in an alternate sectionGoals may be documented in an alternate section FOR RECORDS PERTAINING TO PATIENTS WHO ARE OR HAVE BEEN ENROLLED IN A CHEMICAL DEPENDENCY/SUBSTANCEABUSE PROGRAM, SOME INFORMATION MAY BE OMITTED. This clinical summary was aggregated from multiple sources. Caution should be exercised in using it in the provision of clinical care. This summary normalizes information from multiple sources, and as a consequence, information in this document may materially change the coding, format and clinical context of patient data. In addition, data may be omitted in some cases. CLINICAL DECISIONS SHOULD BE BASED ON THE PRIMARY CLINICAL RECORDS. [employer] provides no warranty or guarantee of the accuracy or completeness of information in this document.
[2024-12-13 20:52] LABS: Blood Gas Specimen Type VEN; O2 Delivery Device Cannula; SITE Not entered; VBG BASE EXCESS 2 mmol/L (-1.0-3.5); VBG Bicarbonate 26 mmol/L (22-26); VBG PO2 56 mmHg (25-40); VBG SO2 89 % (50-70); VBG TCO2 28 mmol/L (23-33); VBG pCO2 42.7 mmHg (41-51)
--- NOTE | 2024-12-13 20:53 | CPS ---
unable to obtain abg-vbg done no critical values-pt does not wear a bipap or cpap at home only on 4l/m via [place]
--- OUTSIDE RECORDS SUMMARY | 2024-12-13 21:11 | XMS RPT_ITS | CCD ---
Author Organization [facility] Care Team Providers Care Client Associate Name Role Phone Selene RANDALL, Daija Primary Care Provider Madeline LEARNING SPECIALIST, Beatriz Unavailable Unavailab johnson Motron MD, Daija Unavailable 13, Pharmacist Unavailable Artemio RN, Lizette Unavailable [phone] Dr. Daija Morton Primary Care Provider Dr. [...] May MD Unavailable Geronimo Medina DO Unavailable Daija Morton MD Primary Care [...] Provider Unavailable Oscar, Dr. Wallace Other Provider Geronimo Medina DO Unavailable Dr. Daija Morton Primary Care Provider Dr. Huber Alvarado Emergency Provider Chay, Dr. Peters Admit Provider Chay, Dr. Peters Attending Provider Chay, Dr. Peters Other Provider Dr. Celia Toribio Attending Provider Dr. Celia Toribio Other Provider Dr. Frankie Galindo Attending Provider Unavailable Mateo, Other Provider Unavailable Oscar, Dr. Wallace Other Provider SELENE RANDALL, DR DAIJA France Primary Care [...] Other Provider Dr. Elton Moore Other Provider [phone] Dr. Raul Melchor Emergency Provider Dr. Андрей [...] Talamantes DO Other Provider Catarino RANDALL, Dr. aYng Attending Provider Catarino RANDALL, Dr. Yang Other Provider Oscar RANDALL, Dr. Wallace Other Provider Caesar RANDALL, Dr. Skinner Attending Provider Caesar RANDALL, Dr. Skinner Other Provider [phone] Selene RANDALL, Dr. Choe Primary Care Provider [phone] Yamilka RANDALL, Dr. 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 30 tablet 5 01/23/2024 Active Comment on above: Take 1 tablet by jorge once daily. 12 hr dextromethorphan hydrobromide 60 mg / guaiFENesin 1200 mg extended release oral tablet (6 sources) Uncompetitive J-hgfwzo-O-aspartat e Receptor Antagonist, Sigma-1 Agonist Start: 09-02-2024 [...] meals. docusate sodium 50 mg / sennosides, care home 8.6 mg oral tablet (9 sources) Start: [...] mg tablet Indications: Coronary artery disease involving ho-chunk coronary artery of ho-chunk heart without angina pectoris Take 1 tablet [...] Comment on above: Take 1 tablet by jroge once daily. nitrofurantoin, macrocrystals 25 mg / [...] on above: Take 1 capsule by mo [facility] twice daily for 5 days. Take 1 capsule by mo [facility] twice daily with meals [...] Comment on above: Take 1 capsule by [facility] once daily. traMADol hydrochloride 50 mg oral [...] 10/02/21 Status: Ordered Walker (ULTRA-LIGHT ROLLATOR ) [facility] ([facility] Start: 11-21-2023 Walker (ULTRA- LIGHT ROLLATOR) [facility] Indications: Closed nondisplaced fracture of pelvis with routine healing, unspecified part of pelvis, subsequent encounter 1 Each once daily. 1 Each 11/21/2023 Active Start: 11-21-2023 Walker (ULTRA- LIGHT ROLLATOR) [facility] Indications: Closed nondisplaced fracture of pelvis with [...] unspecified emphysema type (HCC) Aerosol supplies Dx:J44.1 NPI#[id number] 1 Each 2 04/11/2018 02/02/2022 Discontinued (Duplicate Entry) Start: 04-11-2018 End: 02-02-2022 COMPOUNDED PRESCRIPTION Tamela cations: Pulmonary emphysema, unspecified emphysema type (HCC) NEBULIZER FOR HOME USE. 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 DX: Emphysema, COPD 1 Each 3 04/11/2018 Active Comment on above: Aerosol supplies Dx: J44.1 NPI#[id number] NEBULIZER FOR HOME U SE. DX: Emphysema, [...] Compression fracture of L2 vertebra, initial encounter ([facility]) Take 1 capsule by mouth once daily [...] Comment on above: Take 1 capsule by [facility] once daily as needed for Constipation. Take [...] cbc while on iv abx. Fax to [phone] 72 hr fentaNYL 0.05 mg/hr transdermal system [...] Corticosteroid, beta2-Adrenergic Agonist Start: 03-24-2020 End: 04-05-2021 btfawqcsmso-eegtotpke-pg lanter (TRELEGY ELLIPTA) 100-62.5-25 mcg [The details [...] 02/01/2021 Discontinued take 1 capsule by mo [facility] twice daily at bedtime [...] sources) Anticholinergic Start: 12-02-2015 End: 12-07-2015 Ipratropium Collins (Atrovent (Sp)) 12.9 GM inhaler Discontinued 2 NMA INHALATION EVERY 6 HOURS December 02, 2015 12:00am December 07, 2015 10:01am Start: 12-02-2015 End: 12-07-2015 take 1 puff(s) by inhalation every six hours Ipratropium Collins (Atrovent (Sp)) 12.9 GM inhaler Discontinued 2 [...] sources) Anticholinergic Start: 12-02-2015 End: 12-07-2015 Tiotropium Collins (Spiriva 18 Mcg) 1 PUFF inhaler Discontinued 1 NMA INHALATION DAILY December 02, 2015 12:00am December 07, 2015 10:02am Start: 12-02-2015 End: 12-07-2015 Start: 12-02-2015 End: 12-07-2015 take 1 puff(s) by inhalation once daily Tiotropium Collins (Spiriva 18 Mcg) 1 PUFF inhaler Discontinued 1 PUFF INHALATION DAILY December 01, 2015 11:00pm December 07, 2015 9:02am Start: 01-26-2014 End: 09-29-2015 take 1 puff(s) by inhalation once daily Tiotropium Collins (Spiriva With Handihaler) 1 PUFF inhaler Discontinued 1 NMA INHALATION DAILY January 26, 2014 12:00am September 29, 2015 1:10pm Start: 01-26-2014 End: 09-29-2015 Start: 01-26-2014 End: 09-29-2015 take 1 puff(s) by inhalation once daily Tiotropium Collins (Spiriva With Handihaler) 1 PUFF inhaler Discontinued [...] ing 09/13/2021 Take 2 tablets by mo [facility] once daily. 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) or contact O Customer Support at [email or web address] 03-20-2013 Results Test Name Value Interpretation Reference Range Facility CBC W Auto Differential pane l (Bld)on 12-12-2024 Basophils (Bld) [#/Vol] 0.09 10*3/uL [facility] Basophils/100 WBC (Bld) 1.5 % [facility] Differential cell count method Nom (Bld) Auto [facility] Eosinophils (Bld) [#/Vol] 0.22 10*3/uL [facility] Eosinophils/100 WBC (Bld) 3.7 % [facility] Erythrocyte distribution width (RBC) [Ratio] 13.8 % 11.5 - 15.0 % [facility] Hematocrit (Bld) [Volume fraction] 38.3 % Low 39.0 - 51.0 % [facility] Hemoglobin (Bld) [Mass/Vol] 11.7 g/dL Low 13.0 - 17.0 g/dL [facility] Immature granulocytes (Bld) [#/Vol] [facility] Immature granulocytes/100 WBC (Bld) 0.3 % [facility] Interpretation and review of laboratory results Abnormal [facility] Lymphocytes (Bld) [#/Vol] 0.8 10*3/uL Low [facility] Lymphocytes/100 WBC (Bld) 13.6 % [facility] MCH (RBC) [Entitic mass] 27.9 pg 26. 0 - 34.0 pg [facility] MCHC (RBC) [Mass/Vol] 30.5 g/dL 30.5 - 36.0 g/dL [facility] MCV (RBC) [Entitic vol] 91.4 fL 80.0 - 100.0 fL [facility] Monocytes (Bld) [#/Vol] 0.51 10*3/uL [facility] Monocytes/100 WBC (Bld) 8.7 % [facility] Neutrophils (Bld) [#/Vol] 4.25 10*3/uL [facility] Neutrophils/100 WBC (Bld) 72.2 % [facility] Nucleated RBC (Bld) [#/Vol] [facility] Nucleated RBC/100 WBC (Bld) [Ratio] 0 % /100 WBC [facility] Platelet mean volume (Bld) [Entitic vol] 10.5 fL 9.0 - 12.7 fL [facility] Platelets (Bld) [#/Vol] 310 10*3/uL [facility] RBC (Bld) [#/Vol] 4.19 10*6/uL Low 4.20 - 6.0 0 m/uL [facility] WBC (Bld) [#/Vol] 5.89 10*3/uL [facility] Basic Metabolic Profile (BMP )on 12-02-2024 BUN/CRE 23.5 RATIO High 10-20 [facility] Comment on above: Order Comment: 307.2 Performed By: #### L 100.0500, L500.2500, L506.1001 ####[facility] [address] [place], [address] Calcium [Mass/Vol] 9.4 mg/dL Normal 7.6-11.0 [facility] Comment on above: Order Comment: 307.2 Performed By: #### L 100.0500, L500.2500, L506.1001 ####[facility] [address] [place], [address] Chloride [Moles/Vol] 104 mmol/L Normal 98-108 [facility] Comment on above: Order Comment: 307.2 Performed By: #### L 100.0500, L500.2500, L506.1001 ####[facility] [address] [place], [address] CO2 [Moles/Vol] 25.5 mmol/L Normal 21.0-32.0 [facility] Comment on above: Order Comment: 307.2 Performed By: #### L 100.0500, L500.2500, L506.1001 ####[facility] [address] [place], [address] Creatinine [Mass/Vol] 1.21 mg/dL High 0.70-1.20 [facility] Comment on above: Order Comment: 307.2 Performed By: #### L 100.0500, L500.2500, L506.1001 ####[facility] [address] [place], [address] GAP 11 Normal 5-15 [facility] Comment on above: Order Comment: 307.2 Performed By: #### L 100.0500, L500.2500, L506.1001 ####[facility] [address] [place], [address] GFR/1.73 sq M.predicted among non-blacks MDRD (S/P/Bld) [Vol rate/Area] 62 mL/min/{1.73_m2} Normal >60 [facility] Comment on above: Order Comment: 307.2 Result Comment: mL/m in/1.73m2 CKD-EPI Creatinine Equation (2020) Performed By: #### L 100.0500, L500.2500, L506.1001 ####[facility] [address] [place], [address] Glucose [Mass/Vol] 86 mg/dL Normal 70-99 [facility] Comment on above: Order Comment: 307.2 Performed By: #### L 100.0500, L500.2500, L506.1001 ####[facility] [address] [place], [address] Potassium [Moles/Vol] 4.1 mmol/L Normal 3.3-5.1 [facility] Comment on above: Order Comment: 307.2 Performed By: #### L 100.0500, L500.2500, L506.1001 ####[facility] [address] [place], [address] Sodium [Moles/Vol] 141 mmol/L Normal 133-145 [facility] Comment on above: Order Comment: 307.2 Performed By: #### L 100.0500, L500.2500, L506.1001 ####[facility] [address] [place], [address] Urea nitrogen [Mass/Vol] 28 mg/dL High 4-19 [facility] Comment on above: Order Comment: 307.2 Performed By: #### L 100.0500, L500.2500, L506.1001 ####[facility] [address] [place], [address] CBC-Complete Blood Cnt No Di ffon 12-02-2024 Erythrocyte distribution width (RBC) [Ratio] 13.2 % Normal 11.6-14.6 [facility] Comment on above: Order Comment: 307.2 Performed By: #### L 100.0500, L500.2500, L506.1001 ####[facility] [address] [place], [address] Hematocrit (Bld) [Volume fraction] 35.2 % Low 40-54 [facility] Comment on above: Order Comment: 307.2 Performed By: #### L 100.0500, L500.2500, L506.1001 ####[facility] [address] [place], [address] Hemoglobin (Bld) [Mass/Vol] 11.1 g/dL Low 13.0-16.5 [facility] Comment on above: Order Comment: 307.2 Performed By: #### L 100.0500, L500.2500, L506.1001 ####[facility] [address] [place], [address] MCH (RBC) [Entitic mass] 28.6 pg Normal 27.0-32.0 [facility] Comment on above: Order Comment: 307.2 Performed By: #### L 100.0500, L500.2500, L506.1001 ####[facility] [address] [place], [address] MCHC (RBC) [Mass/Vol] 31.5 g/dL Low 32-36 [facility] Comment on above: Order Comment: 307.2 Performed By: #### L 100.0500, L500.2500, L506.1001 ####[facility] [address] [place], [address] MCV (RBC) [Entitic vol] 90.7 fL Normal 80-94 [facility] Comment on above: Order Comment: 307.2 Performed By: #### L 100.0500, L500.2500, L506.1001 ####[facility] [address] [place], [address] Platelet mean volume (Bld) [Entitic vol] 10.2 fL Normal 6.2-12.0 [facility] Comment on above: Order Comment: 307.2 Performed By: #### L 100.0500, L500.2500, L506.1001 ####[facility] [address] [place], [address] Platelets (Bld) [#/Vol] 314 10*3/uL Normal 150-450 [facility] Comment on above: Order Comment: 307.2 Performed By: #### L 100.0500, L500.2500, L506.1001 ####[facility] [address] [place], [address] RBC (Bld) [#/Vol] 3.88 10*6/uL Low 4.6-6.2 [facility] Comment on above: Order Comment: 307.2 Performed By: #### L 100.0500, L500.2500, L506.1001 ####[facility] [address] [place], [address] RDW SD 43.6 fl Normal 35.1-43.9 [facility] Comment on above: Order Comment: 307.2 Performed By: #### L 100.0500, L500.2500, L506.1001 ####[facility] [address] [place], [address] WBC (Bld) [#/Vol] 5.1 10*3/uL Normal 4.4-11.0 [facility] Comment on above: Order Comment: 307.2 Performed By: #### L 100.0500, L500.2500, L506.1001 ####[facility] [address] [place], [address] Vitamin D,25 Hydroxyon 12-02 Vitamin D 25-OH 46.6 ng/mL Normal 30-100 [facility] Comment on above: Order Comment: 307.2 Result Comment: Teri min D StatusDeficiency: <20 ng/mL (50nmol/L)Insufficiency: 20-30 ng/mL (50-75 nmol/L)Sufficiency: 30-100 ng/mL (75-250 nmol/L)Toxicity: >100 ng/mL (>250 nmol/L) Performed By: #### L 100.0500, L500.2500, L506.1001 ####[facility] [address] [place], [address] Calculated very low density lipoprotein (VLDL) cholesterol measurementOrdered By: Carla Prather on 11-05-2024 Calculated very low density lipoprotein (VLDL) cholesterol measurement 13 mg/dL 5-40 [facility] LDL calc ser/plasOrdered By: Carla Prather on 11-05-2024 Cholesterol in LDL [Mass/Vol] 63 mg/dL [facility] Comment on above: Gdwgajaima=041-763 m g/dL & Higher Esrm=025 mg/dL or greater Lipid Profileon 11-05-2024 CHOL:HDL 2.18 Normal [facility] Comment on above: Order Comment: 307.2 Performed By: #### L 500.4100, L506.1001 ####[facility] [address] [place], [address] Cholesterol [Mass/Vol] 140 mg/dL Normal <=200 [facility] Comment on above: Order Comment: 307.2 Result Comment: Chol esterol level, Desirable <200 mg/dLBorderline high cholesterol 200-239 mg/dLHigh cholesterol >=240 mg/dLRecommendations of the NCEP Adult Treatment Panel for thefollowing risk-cutoff thresholds for the [place] Americanpulation. Performed By: #### L 500.4100, L506.1001 ####[facility] [address] [place], [address] Cholesterol in HDL [Mass/Vol] 64 mg/dL Normal [facility] Comment on above: Order Comment: 307.2 Result Comment: Yasmin onal Cholesterol Education Program (NCEP) guidelines:<40 mg/dL: Low HDL-cholesterol (major risk factor for CHD)>= 60 mg/dL: High HDL-cholesterol (negative risk factor forCHD)HDL-cholesterol is affected by a number of factors, e.g.smoking, exercise, hormones, sex and age. Performed By: #### L 500.4100, L506.1001 ####[facility] [address] [place], [address] Cholesterol in LDL [Mass/Vol] 63 mg/dL Normal [facility] Comment on above: Order Comment: 307.2 Result Comment: Bord ygotkh=022-531 mg/dL Higher Rnmw=854 mg/dL or greater Performed By: #### L 500.4100, L506.1001 ####[facility] [address] [place], [address] Cholesterol in VLDL [Mass/Vol] 13 mg/dL Normal 5-40 [facility] Comment on above: Order Comment: 307.2 Performed By: #### L 500.4100, L506.1001 ####[facility] [address] [place], [address] Triglyceride [Mass/Vol] 63 mg/dL Normal [facility] Comment on above: Order Comment: 307.2 Result Comment: The drugs N-Acetylcysteine and Metamizole may falselydepress this assay.Normal range: <150 mg/dLBorderline High: 150-199 mg/dLHigh: 200-499 mg/dLVery High: >500 mg/dL Performed By: #### L 500.4100, L506.1001 ####[facility] [address] [place], [address] Screening total cholesterol/ high density lipoprotein (HDL) cholesterol ratioOrdered By: Carla Prather on 11-05-2024 Cholesterol.total/Choles terol in HDL [Mass ratio] 2.18 {ratio} [facility] Serum or plasma cholesterol in HDL measurement (mass/volume)Ordered By: Carla Prather on 11-05-2024 Cholesterol in HDL [Mass/Vol] 64 mg/dL >40 [facility] Comment on above: National Cholesterol Education Program (NCEP) guidelines:<40 mg/dL: Low HDL-cholesterol (major risk factor for CHD)>= 60 mg/dL: High HDL-cholesterol (negative risk factor for CHD)HDL-cholesterol is affected by a number of factors, e.g. smoking, exercise, hormones, sex and age. Serum or plasma cholesterol measurement (mass/volume)Ordered By: Carla Prather on 11-05-2024 Cholesterol [Mass/Vol] 140 mg/dL <201 [facility] Comment on above: Cholesterol level, D esirable <200 mg/dLBorderline high cholesterol 200-239 mg/dLHigh cholesterol >=240 mg/dLRecommendations of the NCEP Adult Treatment Panel for the following risk-cutoff thresholds for the [place] population. Triglycerides measurementOrd ered By: Carla Prather on 11-05-2024 Triglyceride [Mass/Vol] 63 mg/dL <199 [facility] Comment on above: The drugs N-Acetylcy steine and Metamizole may falsely depress this assay. Normal range: <150 mg/dLBorderline High: 150-199 mg/dLHigh: 200-499 mg/dLVery High: >500 mg/dL Vitamin D,25 Hydroxyon 11-05 Vitamin D 25-OH 51.2 ng/mL Normal 30-100 [facility] Comment on above: Order Comment: 307.2 Result Comment: Teri min D StatusDeficiency: <20 ng/mL (50nmol/L)Insufficiency: 20-30 ng/mL (50-75 nmol/L)Sufficiency: 30-100 ng/mL (75-250 nmol/L)Toxicity: >100 ng/mL (>250 nmol/L) Performed By: #### L 500.4100, L506.1001 ####[facility] [address] [place], [address] Lipid Profileon 11-04-2024 CHOL Normal <=200 [facility] Comment on above: Order Comment: 307-2 Result Comment: MICHOACANO ENT REFUSED-NOTFIED NURSE Performed By: #### L 500.4100 ####[facility] [address] [place], [address] CHOL:HDL Normal [facility] Comment on above: Order Comment: 307-2 Result Comment: MICHOACANO ENT REFUSED-NOTFIED NURSE Performed By: #### L 500.4100 ####[facility] [address] [place], [address] CLDL Normal [facility] Comment on above: Order Comment: 307-2 Result Comment: MICHOACANO ENT REFUSED-NOTFIED NURSE Performed By: #### L 500.4100 ####[facility] [address] [place], [address] HDL Normal [facility] Comment on above: Order Comment: 307-2 Result Comment: MICHOACANO ENT REFUSED-NOTFIED NURSE Performed By: #### L 500.4100 ####[facility] [address] [place], [address] TRIG Normal [facility] Comment on above: Order Comment: 307-2 Result Comment: MICHOACANO ENT REFUSED-NOTFIED NURSE Performed By: #### L 500.4100 ####[facility] [address] [place], [address] VLDL Normal 5-40 [facility] Comment on above: Order Comment: 307-2 Result Comment: MICHOACANO ENT REFUSED-NOTFIED NURSE Performed By: #### L 500.4100 ####[facility] [address] [place], [address] Carbamazepine (Tegretol)on 0 10-16-2024 CARBAMAZEPINE 7.1 ug/mL Normal 4.0-12.0 [facility] Comment on above: Order Comment: 300 Performed By: #### L 501.7900 ####[facility] [address] [place], [address] Serum or plasma carbamazepin e level (mass/volume)Ordered By: Carla Prather on 10-16-2024 carBAMazepine [Mass/Vol] 7.1 ug/mL 4.0-12.0 [facility] Urine Cultureon 09-08-2024 URC Normal [facility] Comment on above: Performed By: #### M 100.2200, L400.0001 ####[facility] [address] [place], [address] Anion gap in Serum or Plasma Ordered By: Celia Toribio on 09-02-2024 Anion gap [Moles/Vol] 11 mmol/L 5-15 [facility] BUN/creatinine ratioOrdered By: Celia Toribio on 09-02-2024 Urea nitrogen/Creatinine [Mass ratio] 27.0 mg/mg High 10-20 [facility] Basic Metabolic Profile (BMP )on 09-02-2024 BUN/CRE 27.0 RATIO High - [facility] Comment on above: Performed By: #### L 500.2500, L100.0100 ####[facility] [address] [place], [address] Calcium [Mass/Vol] 9.2 mg/dL Normal 7.6-11.0 [facility] Comment on above: Performed By: #### L 500.2500, L100.0100 ####[facility] [address] [place], [address] Chloride [Moles/Vol] 106 mmol/L Normal 98-108 [facility] Comment on above: Performed By: #### L 500.2500, L100.0100 ####[facility] [address] [place], [address] CO2 [Moles/Vol] 20.8 mmol/L Low 21.0-32.0 [facility] Comment on above: Performed By: #### L 500.2500, L100.0100 ####[facility] [address] [place], [address] Creatinine [Mass/Vol] 1.22 mg/dL High 0.70-1.20 [facility] Comment on above: Performed By: #### L 500.2500, L100.0100 ####[facility] [facility] [address] [place], [address] ECRCL 50.54 ml/min Normal 50-250 [facility] Comment on above: Performed By: #### L 500.2500, L100.0100 ####[facility] [address] [place], [address] GAP 11 Normal 5-15 [facility] Comment on above: Performed By: #### L 500.2500, L100.0100 ####[facility] [address] [place], [address] GFR/1.73 sq M.predicted among non-blacks MDRD (S/P/Bld) [Vol rate/Area] 62 mL/min/{1.73_m2} Normal >60 [facility] Comment on above: Result Comment: mL/m in/1.73m2 CKD-EPI Creatinine Equation (2020) Performed By: #### L 500.2500, L100.0100 ####[facility] [address] [place], [address] Glucose [Mass/Vol] 99 mg/dL Normal 70-99 [facility] Comment on above: Performed By: #### L 500.2500, L100.0100 ####[facility] [address] [place], [address] Potassium [Moles/Vol] 4.0 mmol/L Normal 3.3-5.1 [facility] Comment on above: Performed By: #### L 500.2500, L100.0100 ####[facility] [address] [place], [address] Sodium [Moles/Vol] 138 mmol/L Normal 133-145 [facility] Comment on above: Performed By: #### L 500.2500, L100.0100 ####[facility] [address] [place], [address] Urea nitrogen [Mass/Vol] 33 mg/dL High 4-19 [facility] Comment on above: Performed By: #### L 500.2500, L100.0100 ####[facility] [address] [place], [address] CBC W/Diff, Automatedon 03- Absolute Neut Normal 2.0-7.7 [facility] Comment on above: Result Comment: Canc elled via OM: MD Ordered Performed By: #### L 500.2500, L100.0100 ####[facility] [address] [place], [address] HCT Normal 40-54 [facility] Comment on above: Result Comment: Canc elled via OM: MD Ordered Performed By: #### L 500.2500, L100.0100 ####[facility] [address] [place], [address] HGB Normal 13.0-16.5 [facility] Comment on above: Result Comment: Canc elled via OM: MD Ordered Performed By: #### L 500.2500, L100.0100 ####[facility] [address] [place], [address] MCH Normal 27.0-32.0 [facility] Comment on above: Result Comment: Canc elled via OM: MD Ordered Performed By: #### L 500.2500, L100.0100 ####[facility] [address] [place], [address] MCHC Normal 32-36 [facility] Comment on above: Result Comment: Canc elled via OM: MD Ordered Performed By: #### L 500.2500, L100.0100 ####[facility] [address] [place], [address] MCV Normal 80-94 [facility] Comment on above: Result Comment: Canc elled via OM: MD Ordered Performed By: #### L 500.2500, L100.0100 ####[facility] [address] [place], [address] NEUT% Normal 47-70 [facility] Comment on above: Result Comment: Canc elled via OM: MD Ordered Performed By: #### L 500.2500, L100.0100 ####[facility] [address] [place], [address] PLT Normal 150-450 [facility] Comment on above: Result Comment: Canc elled via OM: MD Ordered Performed By: #### L 500.2500, L100.0100 ####[facility] [address] [place], [address] RBC Normal 4.6-6.2 [facility] Comment on above: Result Comment: Canc elled via OM: MD Ordered Performed By: #### L 500.2500, L100.0100 ####[facility] [address] [place], [address] RDW CV Normal 11.6-14.6 [facility] Comment on above: Result Comment: Canc elled via OM: MD Ordered Performed By: #### L 500.2500, L100.0100 ####[facility] [address] [place], [address] RDW SD Normal 35.1-43.9 [facility] Comment on above: Result Comment: Canc elled via OM: MD Ordered Performed By: #### L 500.2500, L100.0100 ####[facility] [address] [place], [address] WBC Normal 4.4-11.0 [facility] Comment on above: Result Comment: Canc elled via OM: MD Ordered Performed By: #### L 500.2500, L100.0100 ####[facility] [address] [place], [address] Carbon dioxide, total [Moles /volume] in Central venous bloodOrdered By: Celia Toribio on 09-02-2024 CO2 [Moles/Vol] 20.8 mmol/L Low 21.0-32.0 [facility] Chloride assayOrdered By: Yariel Toribio on 09-02-2024 Chloride [Moles/Vol] 106 mmol/L 98-108 [facility] Estimation of creatinine zeke aranceOrdered By: Celia Toribio on 09-02-2024 Estimated Creatinine Clearance Calc 50.54 ml/min 50-250 [facility] GFR/1.73 sq M.predicted gisella g non-blacks MDRD (S/P/Bld) [Vol rate/Area]Ordered By: Celia Toribio on 09-02-2024 Estimated GFR (MDRD) Non-Af Amer 62 >60 [facility] Comment on above: mL/min/1.73m2 CKD-EP I Creatinine Equation (2020) Glomerular filtration rate ( GFR) estimation/1.73 sq m using serum, plasma, or whole bOrdered By: Celia Toribio on 09-02-2024 GFR/1.73 sq M.predicted among non-blacks MDRD (S/P/Bld) [Vol rate/Area] 62 mL/min/{1.73_m2} >60 [facility] Comment on above: mL/min/1.73m2 CKD-EP I Creatinine Equation (2020) Potassium (Unsp spec) [Mass/ Vol]Ordered By: Celia Toribio on 09-02-2024 Potassium [Moles/Vol] 4.0 mmol/L 3.3-5.1 [facility] Potassium measurement (mass/ volume)Ordered By: Celia Toribio on 09-02-2024 Potassium (Unsp spec) [Mass/Vol] 4.0 mmol/L 3.3-5.1 [facility] Serum creatinine measurement (mass/volume)Ordered By: Celia Toribio on 09-02-2024 Creatinine [Mass/Vol] 1.22 mg/dL High 0.70-1.20 [facility] Serum glucose measurement (m ass/volume)Ordered By: Celia Toribio on 09-02-2024 Glucose [Mass/Vol] 99 mg/dL 70-99 [facility] Serum or plasma calcium luis urement (mass/volume)Ordered By: Celia Toribio on 09-02-2024 Calcium [Mass/Vol] 9.2 mg/dL 7.6-11.0 [facility] Serum or plasma urea nitroge n measurement (mass/volume)Ordered By: Celia Toribio on 03-17-2025 Urea nitrogen [Mass/Vol] 33 mg/dL High 4-19 [facility] Sodium levelOrdered By: Rigoberto Toribio on 09-02-2024 Sodium [Moles/Vol] 138 mmol/L 133-145 [facility] Absolute lymphocyte countOrd ered By: Celia Toribio on 09-01-2024 Lymphocytes Auto (Unsp spec) [#/Vol] 1.45 10*3/uL 0.83-4.51 [facility] Absolute neutrophil countOrd ered By: Celia Toribio on 09-01-2024 Neutrophils (Bld) [#/Vol] 4.9 10*3/uL 2.0-7.7 [facility] Automated lymphocyte count a s percentage of total leukocytesOrdered By: Celia Toribio on 09-01-2024 Lymphocytes/100 WBC Auto (Unsp spec) 20.9 % 19-41 [facility] Basic Metabolic Profile (BMP )on 09-01-2024 BUN/CRE 26.8 RATIO High 10-20 [facility] Comment on above: Order Comment: PT RE FUSED REPORTED TO ОЛЕГ STORY. ОЛЕГ STORY SAID SHE WOULDTRY TO DRAW. Performed By: #### L 500.2500 ####[facility] [address] [place], [address] Calcium [Mass/Vol] 9.6 mg/dL Normal 7.6-11.0 [facility] Comment on above: Order Comment: PT RE FUSED REPORTED TO ОЛЕГ STORY. ОЛЕГ STORY SAID SHE WOULDTRY TO DRAW. Performed By: #### L 500.2500 ####[facility] [address] [place], [address] Chloride [Moles/Vol] 102 mmol/L Normal 98-108 [facility] Comment on above: Order Comment: PT RE FUSED REPORTED TO ОЛЕГ STORY. ОЛЕГ STORY SAID SHE WOULDTRY TO DRAW. Performed By: #### L 500.2500 ####[facility] [address] [place], [address] CO2 [Moles/Vol] 21.9 mmol/L Normal 21.0-32.0 [facility] Comment on above: Order Comment: PT RE FUSED REPORTED TO RN JEZ. RN JEZ SAID SHE WOULDTRY TO DRAW. Performed By: #### L 500.2500 ####[facility] [address] [place], [place], [id number] Creatinine [Mass/Vol] 1.44 mg/dL High 0.70-1.20 [facility] Comment on above: Order Comment: PT RE FUSED REPORTED TO RN EJZ. RN JEZ SAID SHE WOULDTRY TO DRAW. Performed By: #### L 500.2500 ####[facility] [address] [place], [address] ECRCL 42.38 ml/min Low 50-250 [facility] Comment on above: Order Comment: PT RE FUSED REPORTED TO ОЛЕГ STORY. RN JEZ SAID SHE WOULDTRY TO DRAW. Performed By: #### L 500.2500 ####[facility] [address] [place], [address] GAP 13 Normal 5-15 [facility] Comment on above: Order Comment: PT RE FUSED REPORTED TO ОЛЕГ STORY. RN JEZ SAID SHE WOULDTRY TO DRAW. Performed By: #### L 500.2500 ####[facility] [address] [place], [place], [id number] GFR/1.73 sq M.predicted among non-blacks MDRD (S/P/Bld) [Vol rate/Area] 51 mL/min/{1.73_m2} Low >60 [facility] Comment on above: Order Comment: PT RE FUSED REPORTED TO RN JEZ. RN JEZ SAID SHE WOULDTRY TO DRAW. Result Comment: mL/m in/1.73m2 CKD-EPI Creatinine Equation (2020) Performed By: #### L 500.2500 ####[facility] [address] [place], [place], [phone] Glucose [Mass/Vol] 118 mg/dL High 70-99 [facility] Comment on above: Order Comment: PT RE FUSED REPORTED TO ОЛЕГ STORY. RN JEZ SAID SHE WOULDTRY TO DRAW. Performed By: #### L 500.2500 ####[facility] [address] [place], [address] Potassium [Moles/Vol] 4.1 mmol/L Normal 3.3-5.1 [facility] Comment on above: Order Comment: PT RE FUSED REPORTED TO RN JEZ. RN JEZ SAID SHE WOULDTRY TO DRAW. Performed By: #### L 500.2500 ####[facility] [address] [place], [address] Sodium [Moles/Vol] 137 mmol/L Normal 133-145 [facility] Comment on above: Order Comment: PT RE FUSED REPORTED TO RN JEZ. RN JEZ SAID SHE WOULDTRY TO DRAW. Performed By: #### L 500.2500 ####[facility] [address] [place], [address] Urea nitrogen [Mass/Vol] 39 mg/dL High 4-19 [facility] Comment on above: Order Comment: PT RE FUSED REPORTED TO ОЛЕГ STORY. RN JEZ SAID SHE WOULDTRY TO DRAW. Performed By: #### L 500.2500 ####[facility] [address] [place], [address] BUN/CRE 30.2 RATIO High 10-20 [facility] Comment on above: Performed By: #### L 100.0100, L500.2500 ####[facility] [address] [place], [address] Calcium [Mass/Vol] 9.7 mg/dL Normal 7.6-11.0 [facility] Comment on above: Performed By: #### L 100.0100, L500.2500 ####[facility] [address] [place], [address] Chloride [Moles/Vol] 103 mmol/L Normal 98-108 [facility] Comment on above: Performed By: #### L 100.0100, L500.2500 ####[facility] [address] [place], [address] CO2 [Moles/Vol] 19.4 mmol/L Low 21.0-32.0 [facility] Comment on above: Performed By: #### L 100.0100, L500.2500 ####[facility] [address] [place], [address] Creatinine [Mass/Vol] 1.33 mg/dL High 0.70-1.20 [facility] Comment on above: Performed By: #### L 100.0100, L500.2500 ####[facility] [address] [place], [address] ECRCL 45.89 ml/min Low 50-250 [facility] Comment on above: Performed By: #### L 100.0100, L500.2500 ####[facility] [address] [place], [address] GAP 16 High 5-15 [facility] Comment on above: Performed By: #### L 100.0100, L500.2500 ####[facility] [address] [place], [address] GFR/1.73 sq M.predicted among non-blacks MDRD (S/P/Bld) [Vol rate/Area] 56 mL/min/{1.73_m2} Low >60 [facility] Comment on above: Result Comment: mL/m in/1.73m2 CKD-EPI Creatinine Equation (2020) Performed By: #### L 100.0100, L500.2500 ####[facility] [address] [place], [address] Glucose [Mass/Vol] 83 mg/dL Normal 70-99 [facility] Comment on above: Performed By: #### L 100.0100, L500.2500 ####[facility] [address] [place], [address] Potassium [Moles/Vol] 3.8 mmol/L Normal 3.3-5.1 [facility] Comment on above: Performed By: #### L 100.0100, L500.2500 ####[facility] [address] [place], [address] Sodium [Moles/Vol] 139 mmol/L Normal 133-145 [facility] Comment on above: Performed By: #### L 100.0100, L500.2500 ####[facility] [address] [place], [address] Urea nitrogen [Mass/Vol] 40 mg/dL High 4-19 [facility] Comment on above: Performed By: #### L 100.0100, L500.2500 ####[facility] [address] [place], [address] Basophil percentageOrdered B y: Celia Toribio on 09-01-2024 Basophils/100 WBC (Bld) 1.0 % 0-1 [facility] CBC W/Diff, Automatedon 08-17 Absolute Lymph 1.45 X10 3/uL Normal 0.83-4.51 [facility] Comment on above: Performed By: #### L 100.0100 ####[facility] [address] [place], [address] Absolute Neut 4.9 X10 3/uL Normal 2.0-7.7 [facility] Comment on above: Performed By: #### L 100.0100 ####[facility] [address] [place], [address] Basophils/100 WBC (Bld) 1.0 % Normal 0-1 [facility] Comment on above: Performed By: #### L 100.0100 ####[facility] [address] [place], [address] Eosinophils/100 WBC (Bld) 0.4 % Normal 0-5 [facility] Comment on above: Performed By: #### L 100.0100 ####[facility] [address] [place], [address] Erythrocyte distribution width (RBC) [Ratio] 13.3 % Normal 11.6-14.6 [facility] Comment on above: Performed By: #### L 100.0100 ####[facility] [address] [place], [address] Hematocrit (Bld) [Volume fraction] 43.2 % Normal 40-54 [facility] Comment on above: Performed By: #### L 100.0100 ####[facility] [address] [place], [address] Hemoglobin (Bld) [Mass/Vol] 14.1 g/dL Normal 13.0-16.5 [facility] Comment on above: Performed By: #### L 100.0100 ####[facility] [address] [place], [address] IG% 0.600 Normal 0.0-0.9 [facility] Comment on above: Result Comment: IG% - Immature Granulocytes (promyelocytes, myelocytes andmetamyelocytes) > 1% indicates that a LEFT SHIFT is Present. Performed By: #### L 100.0100 ####[facility] [address] [place], [address] Lymphocytes/100 WBC (Bld) 20.9 % Normal 19-41 [facility] Comment on above: Performed By: #### L 100.0100 ####[facility] [address] [place], [address] MCH (RBC) [Entitic mass] 31.4 pg Normal 27.0-32.0 [facility] Comment on above: Performed By: #### L 100.0100 ####[facility] [address] [place], [address] MCHC (RBC) [Mass/Vol] 32.6 g/dL Normal 32-36 [facility] Comment on above: Performed By: #### L 100.0100 ####[facility] [address] [place], [address] MCV (RBC) [Entitic vol] 96.2 fL High 80-94 [facility] Comment on above: Performed By: #### L 100.0100 ####[facility] [address] [place], [address] Monocytes/100 WBC (Bld) 6.2 % Normal 0-10 [facility] Comment on above: Performed By: #### L 100.0100 ####[facility] [address] [place], [address] Neutrophils/100 WBC (Bld) 70.9 % High 47-70 [facility] Comment on above: Performed By: #### L 100.0100 ####[facility] [address] [place], [address] Nucleated RBC (Bld) [#/Vol] 0 10*3/uL Normal 0-5 [facility] Comment on above: Performed By: #### L 100.0100 ####[facility] [address] [place], [address] Platelet mean volume (Bld) [Entitic vol] 9.5 fL Normal 6.2-12.0 [facility] Comment on above: Performed By: #### L 100.0100 ####[facility] [address] [place], [address] Platelets (Bld) [#/Vol] 367 10*3/uL Normal 150-450 [facility] Comment on above: Performed By: #### L 100.0100 ####[facility] [address] [place], [address] RBC (Bld) [#/Vol] 4.49 10*6/uL Low 4.6-6.2 [facility] Comment on above: Performed By: #### L 100.0100 ####[facility] [address] [place], [address] RDW SD 47.4 fl High 35.1-43.9 [facility] Comment on above: Performed By: #### L 100.0100 ####[facility] [address] [place], [address] WBC (Bld) [#/Vol] 6.9 10*3/uL Normal 4.4-11.0 [facility] Comment on above: Performed By: #### L 100.0100 ####[facility] [address] [place], [address] Absolute Neut Normal 2.0-7.7 [facility] Comment on above: Result Comment: Canc elled via OM: MD Ordered Performed By: #### L 100.0100, L500.2500 ####[facility] [address] [place], [address] HCT Normal 40-54 [facility] Comment on above: Result Comment: Canc elled via OM: MD Ordered Performed By: #### L 100.0100, L500.2500 ####[facility] [address] [place], [address] HGB Normal 13.0-16.5 [facility] Comment on above: Result Comment: Canc elled via OM: MD Ordered Performed By: #### L 100.0100, L500.2500 ####[facility] [address] [place], [address] MCH Normal 27.0-32.0 [facility] Comment on above: Result Comment: Canc elled via OM: MD Ordered Performed By: #### L 100.0100, L500.2500 ####[facility] [address] [place], [address] MCHC Normal 32-36 [facility] Comment on above: Result Comment: Canc elled via OM: MD Ordered Performed By: #### L 100.0100, L500.2500 ####[facility] [address] [place], [address] MCV Normal 80-94 [facility] Comment on above: Result Comment: Canc elled via OM: MD Ordered Performed By: #### L 100.0100, L500.2500 ####[facility] [address] [place], [address] NEUT% Normal 47-70 [facility] Comment on above: Result Comment: Canc elled via OM: MD Ordered Performed By: #### L 100.0100, L500.2500 ####[facility] [address] [place], [address] PLT Normal 150-450 [facility] Comment on above: Result Comment: Canc elled via OM: MD Ordered Performed By: #### L 100.0100, L500.2500 ####[facility] [address] [place], [address] RBC Normal 4.6-6.2 [facility] Comment on above: Result Comment: Canc elled via OM: MD Ordered Performed By: #### L 100.0100, L500.2500 ####[facility] [address] [place], [address] RDW CV Normal 11.6-14.6 [facility] Comment on above: Result Comment: Canc elled via OM: MD Ordered Performed By: #### L 100.0100, L500.2500 ####[facility] [address] [place], [address] RDW SD Normal 35.1-43.9 [facility] Comment on above: Result Comment: Canc elled via OM: MD Ordered Performed By: #### L 100.0100, L500.2500 ####[facility] [address] [place], [address] WBC Normal 4.4-11.0 [facility] Comment on above: Result Comment: Canc elled via OM: MD Ordered Performed By: #### L 100.0100, L500.2500 ####[facility] [address] [place], [address] Eosinophil percentageOrdered By: Celia Toribio on 09-01-2024 Eosinophils/100 WBC (Bld) 0.4 % 0-5 [facility] Erythrocyte distribution wid th ratioOrdered By: Celia Toribio on 09-01-2024 Erythrocyte distribution width (RBC) [Ratio] 13.3 % 11.6-14.6 [facility] Erythrocyte distribution wid th standard deviationOrdered By: Celia Toribio on 09-01-2024 Erythrocyte distribution width (RBC) [Entitic vol] 47.4 fL High 35.1-43.9 [facility] Erythrocyte distribution width (RBC) [Ratio] 47.4 fl High 35.1-43.9 [facility] Hematocrit Auto (Bld) [Volum e fraction]Ordered By: Celia Toribio on 09-01-2024 Hematocrit (Bld) [Volume fraction] 43.2 % 40-54 [facility] Hemoglobin measurementOrdere d By: Celia Toribio on 09-01-2024 Hemoglobin (Bld) [Mass/Vol] 14.1 g/dL 13.0-16.5 [facility] Immature granulocytes/100 WB C Auto (Bld)Ordered By: Celia Toribio on 09-01-2024 Immature granulocytes/100 WBC (Bld) 0.600 % 0.0-0.9 [facility] Comment on above: IG% - Immature Granu locytes (promyelocytes, myelocytes and metamyelocytes) > 1% indicates that a LEFT SHIFT is Present. Lymphocytes Auto (Unsp spec) [#/Vol]Ordered By: Celia Toribio on 09-01-2024 Lymphocytes (Bld) [#/Vol] 1.45 10*3/uL 0.83-4.51 [facility] Lymphocytes/100 WBC Auto (Un sp spec)Ordered By: Celia Toribio on 09-01-2024 Lymphocytes/100 WBC (Bld) 20.9 % 19-41 [facility] MCV (mean corpuscular volume ) determinationOrdered By: Celia Toribio on 09-01-2024 MCV (RBC) [Entitic vol] 96.2 fL High 80-94 [facility] Mean corpuscular hemoglobin (MCH) determinationOrdered By: Celia Toribio on 09-01-2024 MCH (RBC) [Entitic mass] 31.4 pg 27.0-32.0 [facility] Mean corpuscular hemoglobin concentration (MCHC) determinationOrdered By: Celia Toribio on 09-01-2024 MCHC (RBC) [Mass/Vol] 32.6 g/dL 32-36 [facility] Mean platelet volume determi nationOrdered By: Celia Toribio on 09-01-2024 Platelet mean volume (Bld) [Entitic vol] 9.5 fL 6.2-12.0 [facility] Monocyte percentageOrdered B y: Celia Toribio on 09-01-2024 Monocytes/100 WBC (Bld) 6.2 % 0-10 [facility] Neutrophil percentageOrdered By: Celia Toribio on 09-01-2024 Neutrophils/100 WBC (Bld) 70.9 % High 47-70 [facility] Nucleated red blood cell per centageOrdered By: Celia Toribio on 09-01-2024 Nucleated RBC/100 WBC (Bld) [Ratio] 0 % 0-5 [facility] Platelet countOrdered By: Yariel Toribio on 09-01-2024 Platelets (Bld) [#/Vol] 367 10*3/uL 150-450 [facility] RBC Auto (Bld) [#/Vol]Ordere d By: Celia Toribio on 09-01-2024 RBC (Bld) [#/Vol] 4.49 10*6/uL Low 4.6-6.2 [facility] White blood cell (WBC) count Ordered By: Celia Toribio on 09-01-2024 WBC (Bld) [#/Vol] 6.9 10*3/uL 4.4-11.0 [facility] Basic Metabolic Profile (BMP )on 08-31-2024 BUN/CRE 25.7 RATIO High 10-20 [facility] Comment on above: Performed By: #### L 500.2500, L100.0100 ####[facility] [address] [place], [address] Calcium [Mass/Vol] 10.0 mg/dL Normal 7.6-11.0 [facility] Comment on above: Performed By: #### L 500.2500, L100.0100 ####[facility] [address] [place], [address] Chloride [Moles/Vol] 102 mmol/L Normal 98-108 [facility] Comment on above: Performed By: #### L 500.2500, L100.0100 ####[facility] [address] [place], [address] CO2 [Moles/Vol] 21.5 mmol/L Normal 21.0-32.0 [facility] Comment on above: Performed By: #### L 500.2500, L100.0100 ####[facility] [address] [place], [address] Creatinine [Mass/Vol] 1.16 mg/dL Normal 0.70-1.20 [facility] Comment on above: Performed By: #### L 500.2500, L100.0100 ####[facility] [address] [place], [address] ECRCL 52.61 ml/min Normal 50-250 [facility] Comment on above: Performed By: #### L 500.2500, L100.0100 ####[facility] [address] [place], [address] GAP 15 Normal 5-15 [facility] Comment on above: Performed By: #### L 500.2500, L100.0100 ####[facility] [address] [place], [address] GFR/1.73 sq M.predicted among non-blacks MDRD (S/P/Bld) [Vol rate/Area] 66 mL/min/{1.73_m2} Normal >60 [facility] Comment on above: Result Comment: mL/m in/1.73m2 CKD-EPI Creatinine Equation (2020) Performed By: #### L 500.2500, L100.0100 ####[facility] [address] [place], [address] Glucose [Mass/Vol] 93 mg/dL Normal 70-99 [facility] Comment on above: Performed By: #### L 500.2500, L100.0100 ####[facility] [address] [place], [address] Potassium [Moles/Vol] 3.8 mmol/L Normal 3.3-5.1 [facility] Comment on above: Performed By: #### L 500.2500, L100.0100 ####[facility] [address] [place], [address] Sodium [Moles/Vol] 138 mmol/L Normal 133-145 [facility] Comment on above: Performed By: #### L 500.2500, L100.0100 ####[facility] [address] [place], [address] Urea nitrogen [Mass/Vol] 30 mg/dL High 4-19 [facility] Comment on above: Performed By: #### L 500.2500, L100.0100 ####[facility] [address] [place], [address] CBC W/Diff, Automatedon 08-17 Absolute Neut Normal 2.0-7.7 [facility] Comment on above: Result Comment: Bethanie luna via OM: Ordered Performed By: #### L 500.2500, L100.0100 ####[facility] [address] [place], [address] HCT Normal 40-54 [facility] Comment on above: Result Comment: Canc elled via OM: MD Ordered Performed By: #### L 500.2500, L100.0100 ####[facility] [address] [place], [address] HGB Normal 13.0-16.5 [facility] Comment on above: Result Comment: Canc elled via OM: MD Ordered Performed By: #### L 500.2500, L100.0100 ####[facility] [address] [place], [address] MCH Normal 27.0-32.0 [facility] Comment on above: Result Comment: Canc elled via OM: MD Ordered Performed By: #### L 500.2500, L100.0100 ####[facility] [address] [place], [address] MCHC Normal 32-36 [facility] Comment on above: Result Comment: Canc elled via OM: MD Ordered Performed By: #### L 500.2500, L100.0100 ####[facility] [address] [place], [address] MCV Normal 80-94 [facility] Comment on above: Result Comment: Canc elled via OM: MD Ordered Performed By: #### L 500.2500, L100.0100 ####[facility] [address] [place], [address] NEUT% Normal 47-70 [facility] Comment on above: Result Comment: Canc elled via OM: MD Ordered Performed By: #### L 500.2500, L100.0100 ####[facility] [address] [place], [address] PLT Normal 150-450 [facility] Comment on above: Result Comment: Canc elled via OM: MD Ordered Performed By: #### L 500.2500, L100.0100 ####[facility] [address] [place], [address] RBC Normal 4.6-6.2 [facility] Comment on above: Result Comment: Canc elled via OM: MD Ordered Performed By: #### L 500.2500, L100.0100 ####[facility] [address] [place], [address] RDW CV Normal 11.6-14.6 [facility] Comment on above: Result Comment: Canc elled via OM: MD Ordered Performed By: #### L 500.2500, L100.0100 ####[facility] [address] [place], [address] RDW SD Normal 35.1-43.9 [facility] Comment on above: Result Comment: Canc elled via OM: MD Ordered Performed By: #### L 500.2500, L100.0100 ####[facility] [address] [place], [address] WBC Normal 4.4-11.0 [facility] Comment on above: Result Comment: Canc elled via OM: MD Ordered Performed By: #### L 500.2500, L100.0100 ####[facility] [address] [place], [address] Basic Metabolic Profile (BMP )on 08-30-2024 BUN/CRE 21.4 RATIO High 10-20 [facility] Comment on above: Performed By: #### L 500.2500, L100.0100 ####[facility] [address] [place], [address] Calcium [Mass/Vol] 10.1 mg/dL Normal 7.6-11.0 [facility] Comment on above: Performed By: #### L 500.2500, L100.0100 ####[facility] [address] [place], [address] Chloride [Moles/Vol] 102 mmol/L Normal 98-108 [facility] Comment on above: Performed By: #### L 500.2500, L100.0100 ####[facility] [address] [place], [address] CO2 [Moles/Vol] 22.7 mmol/L Normal 21.0-32.0 [facility] Comment on above: Performed By: #### L 500.2500, L100.0100 ####[facility] [address] [place], [address] Creatinine [Mass/Vol] 1.21 mg/dL High 0.70-1.20 [facility] Comment on above: Performed By: #### L 500.2500, L100.0100 ####[facility] [address] [place], [address] ECRCL 51.03 ml/min Normal 50-250 [facility] Comment on above: Performed By: #### L 500.2500, L100.0100 ####[facility] [address] [place], [address] GAP 13 Normal 5-15 [facility] Comment on above: Performed By: #### L 500.2500, L100.0100 ####[facility] [address] [place], [address] GFR/1.73 sq M.predicted among non-blacks MDRD (S/P/Bld) [Vol rate/Area] 62 mL/min/{1.73_m2} Normal >60 [facility] Comment on above: Result Comment: mL/m in/1.73m2 CKD-EPI Creatinine Equation (2020) Performed By: #### L 500.2500, L100.0100 ####[facility] [address] [place], [address] Glucose [Mass/Vol] 94 mg/dL Normal 70-99 [facility] Comment on above: Performed By: #### L 500.2500, L100.0100 ####[facility] [address] [place], [address] Potassium [Moles/Vol] 4.2 mmol/L Normal 3.3-5.1 [facility] Comment on above: Performed By: #### L 500.2500, L100.0100 ####[facility] [address] [place], [address] Sodium [Moles/Vol] 138 mmol/L Normal 133-145 [facility] Comment on above: Performed By: #### L 500.2500, L100.0100 ####[facility] [address] [place], [address] Urea nitrogen [Mass/Vol] 26 mg/dL High 4-19 [facility] Comment on above: Performed By: #### L 500.2500, L100.0100 ####[facility] [address] [place], [address] CBC W/Diff, Automatedon 03-06 22-2024 Absolute Lymph 1.00 X10 3/uL Normal 0.83-4.51 [facility] Comment on above: Performed By: #### L 500.2500, L100.0100 ####[facility] [address] [place], [address] Absolute Neut 3.7 X10 3/uL Normal 2.0-7.7 [facility] Comment on above: Performed By: #### L 500.2500, L100.0100 ####[facility] [address] [place], [address] Basophils/100 WBC (Bld) 1.6 % High 0-1 [facility] Comment on above: Performed By: #### L 500.2500, L100.0100 ####[facility] [address] [place], [address] Eosinophils/100 WBC (Bld) 7.8 % High 0-5 [facility] Comment on above: Performed By: #### L 500.2500, L100.0100 ####[facility] [address] [place], [address] Erythrocyte distribution width (RBC) [Ratio] 13.3 % Normal 11.6-14.6 [facility] Comment on above: Performed By: #### L 500.2500, L100.0100 ####[facility] [address] [place], [address] Hematocrit (Bld) [Volume fraction] 41.8 % Normal 40-54 [facility] Comment on above: Performed By: #### L 500.2500, L100.0100 ####[facility] [address] [place], [address] Hemoglobin (Bld) [Mass/Vol] 13.8 g/dL Normal 13.0-16.5 [facility] Comment on above: Performed By: #### L 500.2500, L100.0100 ####[facility] [address] [place], [address] IG% 0.400 Normal 0.0-0.9 [facility] Comment on above: Result Comment: IG% - Immature Granulocytes (promyelocytes, myelocytes andmetamyelocytes) > 1% indicates that a LEFT SHIFT is Present. Performed By: #### L 500.2500, L100.0100 ####[facility] [address] [place], [address] Lymphocytes/100 WBC (Bld) 17.8 % Low 19-41 [facility] Comment on above: Performed By: #### L 500.2500, L100.0100 ####[facility] [address] [place], [address] MCH (RBC) [Entitic mass] 31.9 pg Normal 27.0-32.0 [facility] Comment on above: Performed By: #### L 500.2500, L100.0100 ####[facility] [address] [place], [address] MCHC (RBC) [Mass/Vol] 33.0 g/dL Normal 32-36 [facility] Comment on above: Performed By: #### L 500.2500, L100.0100 ####[facility] [address] [place], [address] MCV (RBC) [Entitic vol] 96.5 fL High 80-94 [facility] Comment on above: Performed By: #### L 500.2500, L100.0100 ####[facility] [address] [place], [address] Monocytes/100 WBC (Bld) 7.6 % Normal 0-10 [facility] Comment on above: Performed By: #### L 500.2500, L100.0100 ####[facility] [address] [place], [address] Neutrophils/100 WBC (Bld) 64.8 % Normal 47-70 [facility] Comment on above: Performed By: #### L 500.2500, L100.0100 ####[facility] [address] [place], [address] Nucleated RBC (Bld) [#/Vol] 0 10*3/uL Normal 0-5 [facility] Comment on above: Performed By: #### L 500.2500, L100.0100 ####[facility] [address] [place], [address] Platelet mean volume (Bld) [Entitic vol] 9.7 fL Normal 6.2-12.0 [facility] Comment on above: Performed By: #### L 500.2500, L100.0100 ####[facility] [address] [place], [address] Platelets (Bld) [#/Vol] 309 10*3/uL Normal 150-450 [facility] Comment on above: Performed By: #### L 500.2500, L100.0100 ####[facility] [address] [place], [address] RBC (Bld) [#/Vol] 4.33 10*6/uL Low 4.6-6.2 [facility] Comment on above: Performed By: #### L 500.2500, L100.0100 ####[facility] [address] [place], [address] RDW SD 47.7 fl High 35.1-43.9 [facility] Comment on above: Performed By: #### L 500.2500, L100.0100 ####[facility] [address] [place], [address] WBC (Bld) [#/Vol] 5.6 10*3/uL Normal 4.4-11.0 [facility] Comment on above: Performed By: #### L 500.2500, L100.0100 ####[facility] [address] [place], [address] Consultation - Infectious Dx on 08-30-2024 Consultation - Infectious Dx Normal [facility] Basic Metabolic Profile (BMP )on 08-29-2024 BUN/CRE 24.6 RATIO High 10-20 [facility] Comment on above: Performed By: #### L 500.2500, L100.0100 ####[facility] [address] [place], [address] Calcium [Mass/Vol] 10.0 mg/dL Normal 7.6-11.0 [facility] Comment on above: Performed By: #### L 500.2500, L100.0100 ####[facility] [address] [place], [address] Chloride [Moles/Vol] 104 mmol/L Normal 98-108 [facility] Comment on above: Performed By: #### L 500.2500, L100.0100 ####[facility] [address] [place], [address] CO2 [Moles/Vol] 22.8 mmol/L Normal 21.0-32.0 [facility] Comment on above: Performed By: #### L 500.2500, L100.0100 ####[facility] [address] [place], [address] Creatinine [Mass/Vol] 1.21 mg/dL High 0.70-1.20 [facility] Comment on above: Performed By: #### L 500.2500, L100.0100 ####[facility] [address] [place], [address] ECRCL 51.03 ml/min Normal 50-250 [facility] Comment on above: Performed By: #### L 500.2500, L100.0100 ####[facility] [address] [place], [address] GAP 14 Normal 5-15 [facility] Comment on above: Performed By: #### L 500.2500, L100.0100 ####[facility] [address] [place], [address] GFR/1.73 sq M.predicted among non-blacks MDRD (S/P/Bld) [Vol rate/Area] 62 mL/min/{1.73_m2} Normal >60 [facility] Comment on above: Result Comment: mL/m in/1.73m2 CKD-EPI Creatinine Equation (2020) Performed By: #### L 500.2500, L100.0100 ####[facility] [address] [place], [address] Glucose [Mass/Vol] 91 mg/dL Normal 70-99 [facility] Comment on above: Performed By: #### L 500.2500, L100.0100 ####[facility] [address] [place], [address] Potassium [Moles/Vol] 4.1 mmol/L Normal 3.3-5.1 [facility] Comment on above: Performed By: #### L 500.2500, L100.0100 ####[facility] [address] [place], [address] Sodium [Moles/Vol] 141 mmol/L Normal 133-145 [facility] Comment on above: Performed By: #### L 500.2500, L100.0100 ####[facility] [address] [place], [address] Urea nitrogen [Mass/Vol] 30 mg/dL High 4-19 [facility] Comment on above: Performed By: #### L 500.2500, L100.0100 ####[facility] [address] [place], [address] CBC W/Diff, Automatedon 03-1 -2024 Absolute Lymph 1.17 X10 3/uL Normal 0.83-4.51 [facility] Comment on above: Performed By: #### L 500.2500, L100.0100 ####[facility] [address] [place], [address] Absolute Neut 3.1 X10 3/uL Normal 2.0-7.7 [facility] Comment on above: Performed By: #### L 500.2500, L100.0100 ####[facility] [address] [place], [address] Basophils/100 WBC (Bld) 1.3 % High 0-1 [facility] Comment on above: Performed By: #### L 500.2500, L100.0100 ####[facility] [address] [place], [address] Eosinophils/100 WBC (Bld) 8.2 % High 0-5 [facility] Comment on above: Performed By: #### L 500.2500, L100.0100 ####[facility] [address] [place], [address] Erythrocyte distribution width (RBC) [Ratio] 13.5 % Normal 11.6-14.6 [facility] Comment on above: Performed By: #### L 500.2500, L100.0100 ####[facility] [address] [place], [address] Hematocrit (Bld) [Volume fraction] 39.2 % Low 40-54 [facility] Comment on above: Performed By: #### L 500.2500, L100.0100 ####[facility] [address] [place], [address] Hemoglobin (Bld) [Mass/Vol] 12.8 g/dL Low 13.0-16.5 [facility] Comment on above: Performed By: #### L 500.2500, L100.0100 ####[facility] [address] [place], [address] IG% 0.400 Normal 0.0-0.9 [facility] Comment on above: Result Comment: IG% - Immature Granulocytes (promyelocytes, myelocytes andmetamyelocytes) > 1% indicates that a LEFT SHIFT is Present. Performed By: #### L 500.2500, L100.0100 ####[facility] [address] [place], [address] Lymphocytes/100 WBC (Bld) 22.3 % Normal 19-41 [facility] Comment on above: Performed By: #### L 500.2500, L100.0100 ####[facility] [address] [place], [address] MCH (RBC) [Entitic mass] 31.4 pg Normal 27.0-32.0 [facility] Comment on above: Performed By: #### L 500.2500, L100.0100 ####[facility] [address] [place], [address] MCHC (RBC) [Mass/Vol] 32.7 g/dL Normal 32-36 [facility] Comment on above: Performed By: #### L 500.2500, L100.0100 ####[facility] [address] [place], [address] MCV (RBC) [Entitic vol] 96.1 fL High 80-94 [facility] Comment on above: Performed By: #### L 500.2500, L100.0100 ####[facility] [address] [place], [address] Monocytes/100 WBC (Bld) 8.0 % Normal 0-10 [facility] Comment on above: Performed By: #### L 500.2500, L100.0100 ####[facility] [address] [place], [address] Neutrophils/100 WBC (Bld) 59.8 % Normal 47-70 [facility] Comment on above: Performed By: #### L 500.2500, L100.0100 ####[facility] [address] [place], [address] Nucleated RBC (Bld) [#/Vol] 0 10*3/uL Normal 0-5 [facility] Comment on above: Performed By: #### L 500.2500, L100.0100 ####[facility] [address] [place], [address] Platelet mean volume (Bld) [Entitic vol] 9.8 fL Normal 6.2-12.0 [facility] Comment on above: Performed By: #### L 500.2500, L100.0100 ####[facility] [address] [place], [address] Platelets (Bld) [#/Vol] 277 10*3/uL Normal 150-450 [facility] Comment on above: Performed By: #### L 500.2500, L100.0100 ####[facility] [address] [place], [address] RBC (Bld) [#/Vol] 4.08 10*6/uL Low 4.6-6.2 [facility] Comment on above: Performed By: #### L 500.2500, L100.0100 ####[facility] [address] [place], [address] RDW SD 47.8 fl High 35.1-43.9 [facility] Comment on above: Performed By: #### L 500.2500, L100.0100 ####[facility] [address] [place], [address] WBC (Bld) [#/Vol] 5.3 10*3/uL Normal 4.4-11.0 [facility] Comment on above: Performed By: #### L 500.2500, L100.0100 ####[facility] [address] [place], [address] Basic Metabolic Profile (BMP )on 08-28-2024 BUN/CRE 21.6 RATIO High 10-20 [facility] Comment on above: Performed By: #### L 500.2500, L100.0100 ####[facility] [address] [place], [address] Calcium [Mass/Vol] 9.8 mg/dL Normal 7.6-11.0 [facility] Comment on above: Performed By: #### L 500.2500, L100.0100 ####[facility] [address] [place], [address] Chloride [Moles/Vol] 105 mmol/L Normal 98-108 [facility] Comment on above: Performed By: #### L 500.2500, L100.0100 ####[facility] [address] [place], [address] CO2 [Moles/Vol] 21.9 mmol/L Normal 21.0-32.0 [facility] Comment on above: Performed By: #### L 500.2500, L100.0100 ####[facility] [address] [place], [address] Creatinine [Mass/Vol] 1.14 mg/dL Normal 0.70-1.20 [facility] Comment on above: Performed By: #### L 500.2500, L100.0100 ####[facility] [address] [place], [address] ECRCL 54.17 ml/min Normal 50-250 [facility] Comment on above: Performed By: #### L 500.2500, L100.0100 ####[facility] [address] [place], [address] GAP 13 Normal 5-15 [facility] Comment on above: Performed By: #### L 500.2500, L100.0100 ####[facility] [address] [place], [address] GFR/1.73 sq M.predicted among non-blacks MDRD (S/P/Bld) [Vol rate/Area] 67 mL/min/{1.73_m2} Normal >60 [facility] Comment on above: Result Comment: mL/m in/1.73m2 CKD-EPI Creatinine Equation (2020) Performed By: #### L 500.2500, L100.0100 ####[facility] [address] [place], [address] Glucose [Mass/Vol] 93 mg/dL Normal 70-99 [facility] Comment on above: Performed By: #### L 500.2500, L100.0100 ####[facility] [address] [place], [address] Potassium [Moles/Vol] 3.8 mmol/L Normal 3.3-5.1 [facility] Comment on above: Performed By: #### L 500.2500, L100.0100 ####[facility] [address] [place], [address] Sodium [Moles/Vol] 140 mmol/L Normal 133-145 [facility] Comment on above: Performed By: #### L 500.2500, L100.0100 ####[facility] [address] [place], [address] Urea nitrogen [Mass/Vol] 25 mg/dL High 4-19 [facility] Comment on above: Performed By: #### L 500.2500, L100.0100 ####[facility] [address] [place], [address] CBC W/Diff, Automatedon 03-06 20-2024 Absolute Lymph 1.06 X10 3/uL Normal 0.83-4.51 [facility] Comment on above: Performed By: #### L 500.2500, L100.0100 ####[facility] [address] [place], [address] Absolute Neut 2.5 X10 3/uL Normal 2.0-7.7 [facility] Comment on above: Performed By: #### L 500.2500, L100.0100 ####[facility] [address] [place], [address] Basophils/100 WBC (Bld) 1.8 % High 0-1 [facility] Comment on above: Performed By: #### L 500.2500, L100.0100 ####[facility] [address] [place], [address] Eosinophils/100 WBC (Bld) 7.5 % High 0-5 [facility] Comment on above: Performed By: #### L 500.2500, L100.0100 ####[facility] [address] [place], [address] Erythrocyte distribution width (RBC) [Ratio] 13.3 % Normal 11.6-14.6 [facility] Comment on above: Performed By: #### L 500.2500, L100.0100 ####[facility] [address] [place], [address] Hematocrit (Bld) [Volume fraction] 39.0 % Low 40-54 [facility] Comment on above: Performed By: #### L 500.2500, L100.0100 ####[facility] [address] [place], [address] Hemoglobin (Bld) [Mass/Vol] 12.8 g/dL Low 13.0-16.5 [facility] Comment on above: Performed By: #### L 500.2500, L100.0100 ####[facility] [address] [place], [address] IG% 0.400 Normal 0.0-0.9 [facility] Comment on above: Result Comment: IG% - Immature Granulocytes (promyelocytes, myelocytes andmetamyelocytes) > 1% indicates that a LEFT SHIFT is Present. Performed By: #### L 500.2500, L100.0100 ####[facility] [address] [place], [address] Lymphocytes/100 WBC (Bld) 23.4 % Normal 19-41 [facility] Comment on above: Performed By: #### L 500.2500, L100.0100 ####[facility] [address] [place], [address] MCH (RBC) [Entitic mass] 31.1 pg Normal 27.0-32.0 [facility] Comment on above: Performed By: #### L 500.2500, L100.0100 ####[facility] [address] [place], [address] MCHC (RBC) [Mass/Vol] 32.8 g/dL Normal 32-36 [facility] Comment on above: Performed By: #### L 500.2500, L100.0100 ####[facility] [address] [place], [address] MCV (RBC) [Entitic vol] 94.7 fL High 80-94 [facility] Comment on above: Performed By: #### L 500.2500, L100.0100 ####[facility] [address] [place], [address] Monocytes/100 WBC (Bld) 11.3 % High 0-10 [facility] Comment on above: Performed By: #### L 500.2500, L100.0100 ####[facility] [address] [place], [address] Neutrophils/100 WBC (Bld) 55.6 % Normal 47-70 [facility] Comment on above: Performed By: #### L 500.2500, L100.0100 ####[facility] [id number] [place], [address] Nucleated RBC (Bld) [#/Vol] 0 10*3/uL Normal 0-5 [facility] Comment on above: Performed By: #### L 500.2500, L100.0100 ####[facility] [id number] [place], [address] Platelet mean volume (Bld) [Entitic vol] 9.8 fL Normal 6.2-12.0 [facility] Comment on above: Performed By: #### L 500.2500, L100.0100 ####[facility] [id number] [place], [address] Platelets (Bld) [#/Vol] 279 10*3/uL Normal 150-450 [facility] Comment on above: Performed By: #### L 500.2500, L100.0100 ####[facility] [address] [place], [address] RBC (Bld) [#/Vol] 4.12 10*6/uL Low 4.6-6.2 [facility] Comment on above: Performed By: #### L 500.2500, L100.0100 ####[facility] [address] [place], [address] RDW SD 46.1 fl High 35.1-43.9 [facility] Comment on above: Performed By: #### L 500.2500, L100.0100 ####[facility] [address] [place], [address] WBC (Bld) [#/Vol] 4.5 10*3/uL Normal 4.4-11.0 [facility] Comment on above: Performed By: #### L 500.2500, L100.0100 ####[facility] [address] [place], [address] Basic Metabolic Profile (BMP )on 08-27-2024 BUN/CRE 17.2 RATIO Normal 10-20 [facility] Comment on above: Performed By: #### L 500.2500, L100.0100 ####[facility] [address] [place], [address] Calcium [Mass/Vol] 9.5 mg/dL Normal 7.6-11.0 [facility] Comment on above: Performed By: #### L 500.2500, L100.0100 ####[facility] [address] [place], [address] Chloride [Moles/Vol] 104 mmol/L Normal 98-108 [facility] Comment on above: Performed By: #### L 500.2500, L100.0100 ####[facility] [address] [place], [address] CO2 [Moles/Vol] 19.9 mmol/L Low 21.0-32.0 [facility] Comment on above: Performed By: #### L 500.2500, L100.0100 ####[facility] [address] [place], [address] Creatinine [Mass/Vol] 1.18 mg/dL Normal 0.70-1.20 [facility] Comment on above: Performed By: #### L 500.2500, L100.0100 ####[facility] [address] [place], [address] ECRCL 52.25 ml/min Normal 50-250 [facility] Comment on above: Performed By: #### L 500.2500, L100.0100 ####[facility] [address] [place], [address] GAP 14 Normal 5-15 [facility] Comment on above: Performed By: #### L 500.2500, L100.0100 ####[facility] [address] [place], [address] GFR/1.73 sq M.predicted among non-blacks MDRD (S/P/Bld) [Vol rate/Area] 64 mL/min/{1.73_m2} Normal >60 [facility] Comment on above: Result Comment: mL/m in/1.73m2 CKD-EPI Creatinine Equation (2020) Performed By: #### L 500.2500, L100.0100 ####[facility] [address] [place], [address] Glucose [Mass/Vol] 97 mg/dL Normal 70-99 [facility] Comment on above: Performed By: #### L 500.2500, L100.0100 ####[facility] [address] [place], [address] Potassium [Moles/Vol] 3.4 mmol/L Normal 3.3-5.1 [facility] Comment on above: Performed By: #### L 500.2500, L100.0100 ####[facility] [address] [place], [address] Sodium [Moles/Vol] 139 mmol/L Normal 133-145 [facility] Comment on above: Performed By: #### L 500.2500, L100.0100 ####[facility] [address] [place], [address] Urea nitrogen [Mass/Vol] 20 mg/dL High 4-19 [facility] Comment on above: Performed By: #### L 500.2500, L100.0100 ####[facility] [address] [place], [address] Bilirubin Test strip Ql (U)O rdered By: Celia Toribio on 08-27-2024 Bilirubin Ql (U) Negative Negative [facility] CBC W/Diff, Automatedon 08-17 Absolute Lymph 0.95 X10 3/uL Normal 0.83-4.51 [facility] Comment on above: Performed By: #### L 500.2500, L100.0100 ####[facility] [address] [place], [address] Absolute Neut 2.3 X10 3/uL Normal 2.0-7.7 [facility] Comment on above: Performed By: #### L 500.2500, L100.0100 ####[facility] [address] [place], [address] Basophils/100 WBC (Bld) 1.2 % High 0-1 [facility] Comment on above: Performed By: #### L 500.2500, L100.0100 ####[facility] [address] [place], [address] Eosinophils/100 WBC (Bld) 6.3 % High 0-5 [facility] Comment on above: Performed By: #### L 500.2500, L100.0100 ####[facility] [address] [place], [address] Erythrocyte distribution width (RBC) [Ratio] 13.3 % Normal 11.6-14.6 [facility] Comment on above: Performed By: #### L 500.2500, L100.0100 ####[facility] [address] [place], [address] Hematocrit (Bld) [Volume fraction] 38.4 % Low 40-54 [facility] Comment on above: Performed By: #### L 500.2500, L100.0100 ####[facility] [address] [place], [address] Hemoglobin (Bld) [Mass/Vol] 12.8 g/dL Low 13.0-16.5 [facility] Comment on above: Performed By: #### L 500.2500, L100.0100 ####[facility] [address] [place], [address] IG% 0.200 Normal 0.0-0.9 [facility] Comment on above: Result Comment: IG% - Immature Granulocytes (promyelocytes, myelocytes andmetamyelocytes) > 1% indicates that a LEFT SHIFT is Present. Performed By: #### L 500.2500, L100.0100 ####[facility] [address] [place], [address] Lymphocytes/100 WBC (Bld) 23.0 % Normal 19-41 [facility] Comment on above: Performed By: #### L 500.2500, L100.0100 ####[facility] [address] [place], [address] MCH (RBC) [Entitic mass] 31.4 pg Normal 27.0-32.0 [facility] Comment on above: Performed By: #### L 500.2500, L100.0100 ####[facility] [address] [place], [address] MCHC (RBC) [Mass/Vol] 33.3 g/dL Normal 32-36 [facility] Comment on above: Performed By: #### L 500.2500, L100.0100 ####[facility] [address] [place], [address] MCV (RBC) [Entitic vol] 94.3 fL High 80-94 [facility] Comment on above: Performed By: #### L 500.2500, L100.0100 ####[facility] [address] [place], [address] Monocytes/100 WBC (Bld) 13.1 % High 0-10 [facility] Comment on above: Performed By: #### L 500.2500, L100.0100 ####[facility] [address] [place], [address] Neutrophils/100 WBC (Bld) 56.2 % Normal 47-70 [facility] Comment on above: Performed By: #### L 500.2500, L100.0100 ####[facility] [address] [place], [address] Nucleated RBC (Bld) [#/Vol] 0 10*3/uL Normal 0-5 [facility] Comment on above: Performed By: #### L 500.2500, L100.0100 ####[facility] [address] [place], [address] Platelet mean volume (Bld) [Entitic vol] 10.0 fL Normal 6.2-12.0 [facility] Comment on above: Performed By: #### L 500.2500, L100.0100 ####[facility] [address] [place], [address] Platelets (Bld) [#/Vol] 253 10*3/uL Normal 150-450 [facility] Comment on above: Performed By: #### L 500.2500, L100.0100 ####[facility] [address] [place], [address] RBC (Bld) [#/Vol] 4.07 10*6/uL Low 4.6-6.2 [facility] Comment on above: Performed By: #### L 500.2500, L100.0100 ####[facility] [address] [place], [address] RDW SD 46.1 fl High 35.1-43.9 [facility] Comment on above: Performed By: #### L 500.2500, L100.0100 ####[facility] [address] [place], [address] WBC (Bld) [#/Vol] 4.1 10*3/uL Low 4.4-11.0 [facility] Comment on above: Performed By: #### L 500.2500, L100.0100 ####[facility] [address] [place], [address] CBC-Complete Blood Cnt No Di ffon 08-27-2024 Erythrocyte distribution width (RBC) [Ratio] 13.4 % Normal 11.6-14.6 [facility] Comment on above: Performed By: #### L 100.0500 ####[facility] [address] [place], [address] Hematocrit (Bld) [Volume fraction] 40.6 % Normal 40-54 [facility] Comment on above: Performed By: #### L 100.0500 ####[facility] [address] [place], [address] Hemoglobin (Bld) [Mass/Vol] 13.5 g/dL Normal 13.0-16.5 [facility] Comment on above: Performed By: #### L 100.0500 ####[facility] [address] [place], [address] MCH (RBC) [Entitic mass] 31.5 pg Normal 27.0-32.0 [facility] Comment on above: Performed By: #### L 100.0500 ####[facility] [address] [place], [address] MCHC (RBC) [Mass/Vol] 33.3 g/dL Normal 32-36 [facility] Comment on above: Performed By: #### L 100.0500 ####[facility] [address] [place], [address] MCV (RBC) [Entitic vol] 94.6 fL High 80-94 [facility] Comment on above: Performed By: #### L 100.0500 ####[facility] [address] [place], [address] Platelet mean volume (Bld) [Entitic vol] 9.8 fL Normal 6.2-12.0 [facility] Comment on above: Performed By: #### L 100.0500 ####[facility] [address] [place], [address] Platelets (Bld) [#/Vol] 283 10*3/uL Normal 150-450 [facility] Comment on above: Performed By: #### L 100.0500 ####[facility] [address] [place], [address] RBC (Bld) [#/Vol] 4.29 10*6/uL Low 4.6-6.2 [facility] Comment on above: Performed By: #### L 100.0500 ####[facility] [address] [place], [address] RDW SD 46.0 fl High 35.1-43.9 [facility] Comment on above: Performed By: #### L 100.0500 ####[facility] [address] [place], [address] WBC (Bld) [#/Vol] 4.9 10*3/uL Normal 4.4-11.0 [facility] Comment on above: Performed By: #### L 100.0500 ####[facility] [address] [place], [address] Epithelial cells.squamous LM Ql (Urine sed)Ordered By: Celia Toribio on 08-27-2024 Epithelial cells.squamous LM.HPF (Urine sed) [#/Area] 0 /[HPF] 0-5 [facility] Glucose Ql (U)Ordered By: Yariel Toribio on 08-27-2024 Urine Glucose (UA) Normal mg/dl Normal [facility] Ketones Test strip Ql (U)Ord ered By: Celia Toribio on 08-27-2024 Ketones Ql (U) Negative Negative [facility] Microscopic analysis of urin e for red blood cells (RBC)Ordered By: Celia Toribio on 08-27-2024 Microscopic analysis of urine for red blood cells (RBC) 0 SEEN /hpf 0-5 [facility] Urine RBC 0 SEEN /hpf 0-5 [facility] Mucus LM Ql (Urine sed)Order ed By: Celia Toribio on 08-27-2024 Mucus Ql (Urine sed) 0 SEEN /hpf [facility] Nitrite Test strip Ql (U)Ord ered By: Celia Toribio on 08-27-2024 Nitrite Ql (U) Positive High Negative [facility] Protein Test strip Ql (U)Ord ered By: Celia Toribio on 08-27-2024 Protein Ql (U) 30 mg/dl High Negative [facility] Squamous epithelial cells de tection in urine sediment by light microscopyOrdered By: Celia Toribio on 08-27-2024 Epithelial cells.squamous LM Ql (Urine sed) 0-5 SEEN /hpf 0-5 [facility] Urinalysis, Completeon 08-27 BACTERIA 4+ /hpf Normal None Seen [facility] Comment on above: Order Comment: CLEAN CATCH Performed By: #### M 100.2200, L400.0001 ####[facility] [address] [place], [address] EPI,SQUAMOUS 0-5 SEEN Normal 0-5 [facility] Comment on above: Order Comment: CLEAN CATCH Performed By: #### M 100.2200, L400.0001 ####[facility] [address] [place], [address] RBC 0 SEEN Normal 0-5 [facility] Comment on above: Order Comment: CLEAN CATCH Performed By: #### M 100.2200, L400.0001 ####[facility] [address] [place], [address] WBC 25-50 SEEN Normal 0-5 [facility] Comment on above: Order Comment: CLEAN CATCH Performed By: #### M 100.2200, L400.0001 ####[facility] [address] [place], [address] Mucus Ql (Urine sed) 0 SEEN Normal [facility] Comment on above: Order Comment: CLEAN CATCH Performed By: #### M 100.2200, L400.0001 ####[facility] [address] [place], [address] Urine blood detectionOrdered By: Celia Toribio on 08-27-2024 Urine Occult Blood Negative Negative [facility] Urine clarityOrdered By: Allyson Toribio on 08-27-2024 Clarity (U) Clear Clear [facility] Urine color determinationOrd ered By: Celia Toribio on 08-27-2024 Color (U) Yellow Yellow [facility] Urine cultureOrdered By: Allyson Toribio on 08-27-2024 Bacteria identified Cx Nom (U) ESBL Escherichia coli Abnormal [facility] Urine glucose detectionOrder ed By: Celia Toribio on 08-27-2024 Glucose Ql (U) Normal mg/dl Normal [facility] Urine leukocyte esterase det ection by dipstickOrdered By: Celia Toribio on 08-27-2024 Leukocyte esterase Test strip Ql (U) 500 /ul High Negative [facility] Urine pHOrdered By: Celia rapp on 08-27-2024 pH (U) 6.0 [pH] 5.0 - 8.0 [facility] Urine sediment bacteria coun t by microscopy (number/high power field)Ordered By: Celia Toribio on 08-27-2024 Bacteria LM.HPF (Urine sed) [#/Area] 4 /[HPF] None Seen [facility] Urine specific gravity measu rementOrdered By: Celia Toribio on 08-27-2024 Specific gravity (U) [Rel density] 1.015 1.002-1.030 [facility] Urine urobilinogen measureme ntOrdered By: Celia Toribio on 08-27-2024 Urobilinogen Ql (U) Normal mg/dl Normal [facility] Urobilinogen Ql (U)Ordered B y: Celia Toribio on 08-27-2024 Urine Urobilinogen Normal mg/dl Normal [facility] White blood cell countOrdere d By: Celia Toribio on 08-27-2024 Urine WBC 25-50 SEEN /hpf 0-5 [facility] White blood cell count 25-50 SEEN /hpf 0-5 [facility] Bilirubin, totalOrdered By: Lisha Talamantes on 08-26-2024 Bilirubin [Mass/Vol] 0.25 mg/dL 0.00-1.30 [facility] CBC W/Diff, Automatedon 08-17 Absolute Lymph 0.94 X10 3/uL Normal 0.83-4.51 [facility] Comment on above: Performed By: #### L 501.5200, L100.0100, L500.4050, L501.2300 ####[facility] [address] [place], [address] Absolute Neut 2.9 X10 3/uL Normal 2.0-7.7 [facility] Comment on above: Performed By: #### L 501.5200, L100.0100, L500.4050, L501.2300 ####[facility] [address] [place], [address] Basophils/100 WBC (Bld) 1.1 % High 0-1 [facility] Comment on above: Performed By: #### L 501.5200, L100.0100, L500.4050, L501.2300 ####[facility] [address] [place], [address] Eosinophils/100 WBC (Bld) 3.4 % Normal 0-5 [facility] Comment on above: Performed By: #### L 501.5200, L100.0100, L500.4050, L501.2300 ####[facility] [address] [place], [address] Erythrocyte distribution width (RBC) [Ratio] 13.3 % Normal 11.6-14.6 [facility] Comment on above: Performed By: #### L 501.5200, L100.0100, L500.4050, L501.2300 ####[facility] [address] [place], [address] Hematocrit (Bld) [Volume fraction] 40.6 % Normal 40-54 [facility] Comment on above: Performed By: #### L 501.5200, L100.0100, L500.4050, L501.2300 ####[facility] [address] [place], [address] Hemoglobin (Bld) [Mass/Vol] 13.3 g/dL Normal 13.0-16.5 [facility] Comment on above: Performed By: #### L 501.5200, L100.0100, L500.4050, L501.2300 ####[facility] [address] [place], [address] IG% 0.200 Normal 0.0-0.9 [facility] Comment on above: Result Comment: IG% - Immature Granulocytes (promyelocytes, myelocytes andmetamyelocytes) > 1% indicates that a LEFT SHIFT is Present. Performed By: #### L 501.5200, L100.0100, L500.4050, L501.2300 ####[facility] [address] [place], [address] Lymphocytes/100 WBC (Bld) 19.8 % Normal 19-41 [facility] Comment on above: Performed By: #### L 501.5200, L100.0100, L500.4050, L501.2300 ####[facility] [address] [place], [address] MCH (RBC) [Entitic mass] 31.2 pg Normal 27.0-32.0 [facility] Comment on above: Performed By: #### L 501.5200, L100.0100, L500.4050, L501.2300 ####[facility] [address] [place], [address] MCHC (RBC) [Mass/Vol] 32.8 g/dL Normal 32-36 [facility] Comment on above: Performed By: #### L 501.5200, L100.0100, L500.4050, L501.2300 ####[facility] [address] [place], [address] MCV (RBC) [Entitic vol] 95.3 fL High 80-94 [facility] Comment on above: Performed By: #### L 501.5200, L100.0100, L500.4050, L501.2300 ####[facility] [address] [place], [address] Monocytes/100 WBC (Bld) 15.2 % High 0-10 [facility] Comment on above: Performed By: #### L 501.5200, L100.0100, L500.4050, L501.2300 ####[facility] [address] [place], [address] Neutrophils/100 WBC (Bld) 60.3 % Normal 47-70 [facility] Comment on above: Performed By: #### L 501.5200, L100.0100, L500.4050, L501.2300 ####[facility] [address] [place], [address] Nucleated RBC (Bld) [#/Vol] 0 10*3/uL Normal 0-5 [facility] Comment on above: Performed By: #### L 501.5200, L100.0100, L500.4050, L501.2300 ####[facility] [address] [place], [address] Platelet mean volume (Bld) [Entitic vol] 9.9 fL Normal 6.2-12.0 [facility] Comment on above: Performed By: #### L 501.5200, L100.0100, L500.4050, L501.2300 ####[facility] [address] [place], [address] Platelets (Bld) [#/Vol] 242 10*3/uL Normal 150-450 [facility] Comment on above: Performed By: #### L 501.5200, L100.0100, L500.4050, L501.2300 ####[facility] [address] [place], [address] RBC (Bld) [#/Vol] 4.26 10*6/uL Low 4.6-6.2 [facility] Comment on above: Performed By: #### L 501.5200, L100.0100, L500.4050, L501.2300 ####[facility] [address] [place], [address] RDW SD 46.7 fl High 35.1-43.9 [facility] Comment on above: Performed By: #### L 501.5200, L100.0100, L500.4050, L501.2300 ####[facility] [address] [place], [address] WBC (Bld) [#/Vol] 4.7 10*3/uL Normal 4.4-11.0 [facility] Comment on above: Performed By: #### L 501.5200, L100.0100, L500.4050, L501.2300 ####[facility] [address] [place], [address] COVID 19 AG RAPID (ОЛЕГ Dixon)on 08-26-2024 SARS-CoV-2 (COVID-19) RNA ALEENA+probe Ql (Unsp spec) Normal [facility] Comment on above: Performed By: #### M 100.505 ####[facility] [address] [place], [address] COVID-19 virus antigen assay Ordered By: Celia Toribio on 08-26-2024 SARS-CoV-2 (COVID-19) Ag IA.rapid Ql (Resp) [facility] Comprehensive Metabolic Prof ilon 08-26-2024 Albumin [Mass/Vol] 4.0 g/dL Normal 3.4-4.8 [facility] Comment on above: Performed By: #### L 501.5200, L100.0100, L500.4050, L501.2300 ####[facility] [address] [place], [address] Albumin/Globulin [Mass ratio] 1.4 {ratio} Normal 0.9-2.4 [facility] Comment on above: Performed By: #### L 501.5200, L100.0100, L500.4050, L501.2300 ####[facility] [address] [place], [address] ALK PHOS 67 U/L Normal 40-129 [facility] Comment on above: Performed By: #### L 501.5200, L100.0100, L500.4050, L501.2300 ####[facility] [address] [place], [address] ALT [Catalytic activity/Vol] 28 U/L Normal <=46 [facility] Comment on above: Performed By: #### L 501.5200, L100.0100, L500.4050, L501.2300 ####[facility] [address] [place], [address] AST [Catalytic activity/Vol] 23 U/L Normal <=37 [facility] Comment on above: Performed By: #### L 501.5200, L100.0100, L500.4050, L501.2300 ####[facility] [address] [place], [address] Bilirubin [Mass/Vol] 0.25 mg/dL Normal 0.00-1.30 [facility] Comment on above: Performed By: #### L 501.5200, L100.0100, L500.4050, L501.2300 ####[facility] [address] [place], [address] BUN/CRE 21.8 RATIO High 10-20 [facility] Comment on above: Performed By: #### L 501.5200, L100.0100, L500.4050, L501.2300 ####[facility] [address] [place], [address] Calcium [Mass/Vol] 9.4 mg/dL Normal 7.6-11.0 [facility] Comment on above: Performed By: #### L 501.5200, L100.0100, L500.4050, L501.2300 ####[facility] [address] [place], [address] Chloride [Moles/Vol] 105 mmol/L Normal 98-108 [facility] Comment on above: Performed By: #### L 501.5200, L100.0100, L500.4050, L501.2300 ####[facility] [address] [place], [address] CO2 [Moles/Vol] 17.6 mmol/L Low 21.0-32.0 [facility] Comment on above: Performed By: #### L 501.5200, L100.0100, L500.4050, L501.2300 ####[facility] [address] [place], [address] Creatinine [Mass/Vol] 1.04 mg/dL Normal 0.70-1.20 [facility] Comment on above: Performed By: #### L 501.5200, L100.0100, L500.4050, L501.2300 ####[facility] [address] [place], [address] ECRCL 58.77 ml/min Normal 50-250 [facility] Comment on above: Performed By: #### L 501.5200, L100.0100, L500.4050, L501.2300 ####[facility] [address] [place], [address] GAP 16 High 5-15 [facility] Comment on above: Performed By: #### L 501.5200, L100.0100, L500.4050, L501.2300 ####[facility] [address] [place], [address] GFR/1.73 sq M.predicted among non-blacks MDRD (S/P/Bld) [Vol rate/Area] 75 mL/min/{1.73_m2} Normal >60 [facility] Comment on above: Result Comment: mL/m in/1.73m2 CKD-EPI Creatinine Equation (2020) Performed By: #### L 501.5200, L100.0100, L500.4050, L501.2300 ####[facility] [address] [place], [address] Globulin (S) [Mass/Vol] 2.9 g/dL Normal 2.2-4.2 [facility] Comment on above: Performed By: #### L 501.5200, L100.0100, L500.4050, L501.2300 ####[facility] [address] [place], [address] Glucose [Mass/Vol] 88 mg/dL Normal 70-99 [facility] Comment on above: Performed By: #### L 501.5200, L100.0100, L500.4050, L501.2300 ####[facility] [address] [place], [address] Potassium [Moles/Vol] 3.6 mmol/L Normal 3.3-5.1 [facility] Comment on above: Performed By: #### L 501.5200, L100.0100, L500.4050, L501.2300 ####[facility] [address] [place], [address] Sodium [Moles/Vol] 139 mmol/L Normal 133-145 [facility] Comment on above: Performed By: #### L 501.5200, L100.0100, L500.4050, L501.2300 ####[facility] [address] [place], [address] T PROT 6.9 g/dL Normal 5.9-8.4 [facility] Comment on above: Performed By: #### L 501.5200, L100.0100, L500.4050, L501.2300 ####[facility] [id number] [place], [address] Urea nitrogen [Mass/Vol] 23 mg/dL High 4-19 [facility] Comment on above: Performed By: #### L 501.5200, L100.0100, L500.4050, L501.2300 ####[facility] [id number] [place], [address] Laboratory - Chemistry and C hemistry - challengeOrdered By: Lisha Talamantes on 08-26-2024 AST [Catalytic activity/Vol] 23 U/L <38 [facility] Lactic Acidon 08-26-2024 Lactate [Moles/Vol] 1.1 mmol/L Normal 0.0-2.0 [facility] Comment on above: Order Comment: Y Performed By: #### L 503.6005 ####[facility] [address] [place], [place], [id number] Lactic acid measurementOrder ed By: Celia Toribio on 08-26-2024 Lactate [Moles/Vol] 1.1 mmol/L 0.0-2.0 [facility] Magnesiumon 08-26-2024 Magnesium [Mass/Vol] 1.9 mg/dL Normal 1.5-2.2 [facility] Comment on above: Performed By: #### L 501.5200, L100.0100, L500.4050, L501.2300 ####[facility] [address] [place], [place], [address] Magnesium (Unsp spec) [Mass/ Vol]Ordered By: Lisha Talamantes on 08-26-2024 Magnesium [Mass/Vol] 1.9 mg/dL 1.5-2.2 [facility] Magnesium measurement (mass/ volume)Ordered By: Lisha Talamantes on 08-26-2024 Magnesium (Unsp spec) [Mass/Vol] 1.9 mg/dL 1.5-2.2 [facility] Phosphoruson 08-26-2024 Phosphate [Mass/Vol] 3.1 mg/dL Normal 2.7-4.5 [facility] Comment on above: Performed By: #### L 501.5200, L100.0100, L500.4050, L501.2300 ####[facility] [address] [place], [place], [address] RESPIRATORY PANEL MOLECULARo n 08-26-2024 RP PANEL Normal [facility] Comment on above: Performed By: #### M 100.638 ####[facility] [address] [place], [place], [address] Respiratory pathogens DNA an d RNA panel ALEENA+probe (Resp)Ordered By: Celia Toribio on 08-26-2024 Respiratory Panel (PCR) [facility] Respiratory pathogens detect ion panel by molecular detection methodOrdered By: Celia Toribio on 08-26-2024 Respiratory pathogens DNA and RNA panel ALEENA+probe (Resp) [facility] SARS-CoV-2 (COVID-19) Ag IA. rapid Ql (Resp)Ordered By: Celia Toribio on 08-26-2024 SARS-CoV-2 Antigen (Rapid) [facility] Serum globulin measurementOr dered By: Lisha Talamantes on 08-26-2024 Globulin (S) [Mass/Vol] 2.9 g/dL 2.2-4.2 [facility] Serum or plasma alanine saul otransferase (ALT) measurementOrdered By: Lisha Talamantes on 08-26-2024 ALT [Catalytic activity/Vol] 28 U/L <47 [facility] Serum or plasma albumin luis urement (mass/volume)Ordered By: Lisha Talamantes on 08-26-2024 Albumin [Mass/Vol] 4.0 g/dL 3.4-4.8 [facility] Serum or plasma albumin/glob ulin mass ratioOrdered By: Lisha Talamantes on 08-26-2024 Albumin/Globulin [Mass ratio] 1.4 {ratio} 0.9-2.4 [facility] Serum or plasma alkaline kathleen sphatase measurementOrdered By: Lisha Talamantes on 08-26-2024 ALP [Catalytic activity/Vol] 67 U/L 40-129 [facility] Serum phosphorus measurement Ordered By: Lisha Talamantes on 08-26-2024 Phosphorus Level 3.1 mg/dL 2.7-4.5 [facility] Total proteinOrdered By: Ying Talamantes on 08-26-2024 Protein [Mass/Vol] 6.9 g/dL 5.9-8.4 [facility] Absolute neutrophil countOrd ered By: Jaden Jauregui on 08-25-2024 Neutrophils (Bld) [#/Vol] 4.6 10*3/uL 2.0-7.7 [facility] Anion gap in Serum or Plasma Ordered By: Jaden Jauregui on 08-25-2024 Anion gap [Moles/Vol] 13 mmol/L 5-15 [facility] BUN/creatinine ratioOrdered By: Jaden Jauregui on 08-25-2024 Urea nitrogen/Creatinine [Mass ratio] 21.4 mg/mg High 10-20 [facility] Basophil percentageOrdered B y: Jaden Jauregui on 08-25-2024 Basophils/100 WBC (Bld) 0.8 % 0-1 [facility] Bilirubin, totalOrdered By: Jaden Jauregui on 08-25-2024 Bilirubin [Mass/Vol] 0.22 mg/dL 0.00-1.30 [facility] CBC W/Diff, Automatedon Absolute Lymph 0.61 X10 3/uL Low 0.83-4.51 [facility] Comment on above: Performed By: #### L 500.4050, L100.0100 ####[facility] [address] [place], [address] Absolute Neut 4.6 X10 3/uL Normal 2.0-7.7 [facility] Comment on above: Performed By: #### L 500.4050, L100.0100 ####[facility] [address] [place], [address] Basophils/100 WBC (Bld) 0.8 % Normal 0-1 [facility] Comment on above: Performed By: #### L 500.4050, L100.0100 ####[facility] [address] [place], [address] Eosinophils/100 WBC (Bld) 0.3 % Normal 0-5 [facility] Comment on above: Performed By: #### L 500.4050, L100.0100 ####[facility] [address] [place], [address] Erythrocyte distribution width (RBC) [Ratio] 13.2 % Normal 11.6-14.6 [facility] Comment on above: Performed By: #### L 500.4050, L100.0100 ####[facility] [address] [place], [address] Hematocrit (Bld) [Volume fraction] 43.3 % Normal 40-54 [facility] Comment on above: Performed By: #### L 500.4050, L100.0100 ####[facility] [address] [place], [address] Hemoglobin (Bld) [Mass/Vol] 14.2 g/dL Normal 13.0-16.5 [facility] Comment on above: Performed By: #### L 500.4050, L100.0100 ####[facility] [address] [place], [address] IG% 0.300 Normal 0.0-0.9 [facility] Comment on above: Result Comment: IG% - Immature Granulocytes (promyelocytes, myelocytes andmetamyelocytes) > 1% indicates that a LEFT SHIFT is Present. Performed By: #### L 500.4050, L100.0100 ####[facility] [address] [place], [address] Lymphocytes/100 WBC (Bld) 10.3 % Low 19-41 [facility] Comment on above: Performed By: #### L 500.4050, L100.0100 ####[facility] [address] [place], [address] MCH (RBC) [Entitic mass] 31.4 pg Normal 27.0-32.0 [facility] Comment on above: Performed By: #### L 500.4050, L100.0100 ####[facility] [address] [place], [address] MCHC (RBC) [Mass/Vol] 32.8 g/dL Normal 32-36 [facility] Comment on above: Performed By: #### L 500.4050, L100.0100 ####[facility] [address] [place], [address] MCV (RBC) [Entitic vol] 95.8 fL High 80-94 [facility] Comment on above: Performed By: #### L 500.4050, L100.0100 ####[facility] [address] [place], [address] Monocytes/100 WBC (Bld) 9.9 % Normal 0-10 [facility] Comment on above: Performed By: #### L 500.4050, L100.0100 ####[facility] [address] [place], [address] Neutrophils/100 WBC (Bld) 78.4 % High 47-70 [facility] Comment on above: Performed By: #### L 500.4050, L100.0100 ####[facility] [address] [place], [address] Nucleated RBC (Bld) [#/Vol] 0 10*3/uL Normal 0-5 [facility] Comment on above: Performed By: #### L 500.4050, L100.0100 ####[facility] [address] [place], [address] Platelet mean volume (Bld) [Entitic vol] 9.5 fL Normal 6.2-12.0 [facility] Comment on above: Performed By: #### L 500.4050, L100.0100 ####[facility] [address] [place], [address] Platelets (Bld) [#/Vol] 245 10*3/uL Normal 150-450 [facility] Comment on above: Performed By: #### L 500.4050, L100.0100 ####[facility] [address] [place], [address] RBC (Bld) [#/Vol] 4.52 10*6/uL Low 4.6-6.2 [facility] Comment on above: Performed By: #### L 500.4050, L100.0100 ####[facility] [address] [place], [address] RDW SD 46.6 fl High 35.1-43.9 [facility] Comment on above: Performed By: #### L 500.4050, L100.0100 ####[facility] [address] [place], [address] WBC (Bld) [#/Vol] 5.9 10*3/uL Normal 4.4-11.0 [facility] Comment on above: Performed By: #### L 500.4050, L100.0100 ####[facility] [address] [place], [address] Carbon dioxide, total [Moles /volume] in Central venous bloodOrdered By: Jaden Jauregui on 08-25-2024 CO2 [Moles/Vol] 24.5 mmol/L 21.0-32.0 [facility] Chest 1 View (Portable)on Chest 1 View (Portable) Normal [facility] Chloride assayOrdered By: Joseph Jauregui on 08-25-2024 Chloride [Moles/Vol] 102 mmol/L 98-108 [facility] Comprehensive Metabolic Prof ilon 08-25-2024 Albumin [Mass/Vol] 4.5 g/dL Normal 3.4-4.8 [facility] Comment on above: Performed By: #### L 500.4050, L100.0100 ####[facility] [address] [place], [address] Albumin/Globulin [Mass ratio] 1.4 {ratio} Normal 0.9-2.4 [facility] Comment on above: Performed By: #### L 500.4050, L100.0100 ####[facility] [address] [place], [address] ALK PHOS 77 U/L Normal 40-129 [facility] Comment on above: Performed By: #### L 500.4050, L100.0100 ####[facility] [address] [place], [address] ALT [Catalytic activity/Vol] 32 U/L Normal <=46 [facility] Comment on above: Performed By: #### L 500.4050, L100.0100 ####[facility] [address] [place], [address] AST [Catalytic activity/Vol] 26 U/L Normal <=37 [facility] Comment on above: Performed By: #### L 500.4050, L100.0100 ####[facility] [address] [place], [address] Bilirubin [Mass/Vol] 0.22 mg/dL Normal 0.00-1.30 [facility] Comment on above: Performed By: #### L 500.4050, L100.0100 ####[facility] [address] [place], [address] BUN/CRE 21.4 RATIO High 10-20 [facility] Comment on above: Performed By: #### L 500.4050, L100.0100 ####[facility] [address] [place], [address] Calcium [Mass/Vol] 10.0 mg/dL Normal 7.6-11.0 [facility] Comment on above: Performed By: #### L 500.4050, L100.0100 ####[facility] [address] [place], [address] Chloride [Moles/Vol] 102 mmol/L Normal 98-108 [facility] Comment on above: Performed By: #### L 500.4050, L100.0100 ####[facility] [address] [place], [address] CO2 [Moles/Vol] 24.5 mmol/L Normal 21.0-32.0 [facility] Comment on above: Performed By: #### L 500.4050, L100.0100 ####[facility] [address] [place], [address] Creatinine [Mass/Vol] 1.17 mg/dL Normal 0.70-1.20 [facility] Comment on above: Performed By: #### L 500.4050, L100.0100 ####[facility] [address] [place], [address] GAP 13 Normal 5-15 [facility] Comment on above: Performed By: #### L 500.4050, L100.0100 ####[facility] [address] [place], [address] GFR/1.73 sq M.predicted among non-blacks MDRD (S/P/Bld) [Vol rate/Area] 65 mL/min/{1.73_m2} Normal >60 [facility] Comment on above: Result Comment: mL/m in/1.73m2 CKD-EPI Creatinine Equation (2020) Performed By: #### L 500.4050, L100.0100 ####[facility] [address] [place], [address] Globulin (S) [Mass/Vol] 3.2 g/dL Normal 2.2-4.2 [facility] Comment on above: Performed By: #### L 500.4050, L100.0100 ####[facility] [address] [place], [address] Glucose [Mass/Vol] 98 mg/dL Normal 70-99 [facility] Comment on above: Performed By: #### L 500.4050, L100.0100 ####[facility] [address] [place], [address] Potassium [Moles/Vol] 3.8 mmol/L Normal 3.3-5.1 [facility] Comment on above: Performed By: #### L 500.4050, L100.0100 ####[facility] [address] [place], [address] Sodium [Moles/Vol] 139 mmol/L Normal 133-145 [facility] Comment on above: Performed By: #### L 500.4050, L100.0100 ####[facility] [address] [place], [address] T PROT 7.7 g/dL Normal 5.9-8.4 [facility] Comment on above: Performed By: #### L 500.4050, L100.0100 ####[facility] [address] [place], [address] Urea nitrogen [Mass/Vol] 25 mg/dL High 4-19 [facility] Comment on above: Performed By: #### L 500.4050, L100.0100 ####[facility] [address] [place], [address] Emergency Department Summary on 08-25-2024 Emergency Department Summary Normal [facility] Eosinophil percentageOrdered By: Jaden Jauregui on 08-25-2024 Eosinophils/100 WBC (Bld) 0.3 % 0-5 [facility] Erythrocyte distribution wid th ratioOrdered By: Jaden Jauregui on 08-25-2024 Erythrocyte distribution width (RBC) [Ratio] 13.2 % 11.6-14.6 [facility] Erythrocyte distribution wid th standard deviationOrdered By: Jaden Jauregui on 08-25-2024 Erythrocyte distribution width (RBC) [Entitic vol] 46.6 fL High 35.1-43.9 [facility] GFR/1.73 sq M.predicted gisella g non-blacks MDRD (S/P/Bld) [Vol rate/Area]Ordered By: Jaden Jauregui on 08-25-2024 Estimated GFR (MDRD) Non-Af Amer 65 >60 [facility] Comment on above: mL/min/1.73m2 CKD-EP I Creatinine Equation (2020) H AND P Exam - Hospitaliston 08-25-2024 H&P Exam - Hospitalist Normal [facility] Hematocrit Auto (Bld) [Volum e fraction]Ordered By: Jaden Jauregui on 08-25-2024 Hematocrit (Bld) [Volume fraction] 43.3 % 40-54 [facility] Hemoglobin measurementOrdere d By: Jaden Jauregui on 08-25-2024 Hemoglobin (Bld) [Mass/Vol] 14.2 g/dL 13.0-16.5 [facility] Immature granulocytes/100 WB C Auto (Bld)Ordered By: Jaden Jauregui on 08-25-2024 Immature granulocytes/100 WBC (Bld) 0.300 % 0.0-0.9 [facility] Comment on above: IG% - Immature Granu locytes (promyelocytes, myelocytes and metamyelocytes) > 1% indicates that a LEFT SHIFT is Present. Laboratory - Chemistry and C hemistry - challengeOrdered By: Jaden Jauregui on 08-25-2024 AST [Catalytic activity/Vol] 26 U/L <38 [facility] Lymphocytes Auto (Unsp spec) [#/Vol]Ordered By: Jaden Jauregui on 08-25-2024 Lymphocytes (Bld) [#/Vol] 0.61 10*3/uL Low 0.83-4.51 [facility] Lymphocytes/100 WBC Auto (Un sp spec)Ordered By: Jaden Jauregui on 08-25-2024 Lymphocytes/100 WBC (Bld) 10.3 % Low 19-41 [facility] MCV (mean corpuscular volume ) determinationOrdered By: Jaden Jauregui on 08-25-2024 MCV (RBC) [Entitic vol] 95.8 fL High 80-94 [facility] Mean corpuscular hemoglobin (MCH) determinationOrdered By: Jaden Jauregui on 08-25-2024 MCH (RBC) [Entitic mass] 31.4 pg 27.0-32.0 [facility] Mean corpuscular hemoglobin concentration (MCHC) determinationOrdered By: Jaden Jauregui on 08-25-2024 MCHC (RBC) [Mass/Vol] 32.8 g/dL 32-36 [facility] Mean platelet volume determi nationOrdered By: Jaden Jauregui on 08-25-2024 Platelet mean volume (Bld) [Entitic vol] 9.5 fL 6.2-12.0 [facility] Monocyte percentageOrdered B y: Jaden Jauregui on 08-25-2024 Monocytes/100 WBC (Bld) 9.9 % 0-10 [facility] Neutrophil percentageOrdered By: Jaden Jauregui on 08-25-2024 Neutrophils/100 WBC (Bld) 78.4 % High 47-70 [facility] Nucleated red blood cell per centageOrdered By: Jaden Jauregui on 08-25-2024 Nucleated RBC/100 WBC (Bld) [Ratio] 0 % 0-5 [facility] Platelet countOrdered By: Joseph Jauregui on 08-25-2024 Platelets (Bld) [#/Vol] 245 10*3/uL 150-450 [facility] Potassium (Unsp spec) [Mass/ Vol]Ordered By: Jaden Jauregui on 08-25-2024 Potassium [Moles/Vol] 3.8 mmol/L 3.3-5.1 [facility] RBC Auto (Bld) [#/Vol]Ordere d By: Jaden Jauregui on 08-25-2024 RBC (Bld) [#/Vol] 4.52 10*6/uL Low 4.6-6.2 [facility] Serum creatinine measurement (mass/volume)Ordered By: Jaden Jauregui on 08-25-2024 Creatinine [Mass/Vol] 1.17 mg/dL 0.70-1.20 [facility] Serum globulin measurementOr dered By: Jaden Jauregui on 08-25-2024 Globulin (S) [Mass/Vol] 3.2 g/dL 2.2-4.2 [facility] Serum glucose measurement (m ass/volume)Ordered By: Jaden Jauregui on 08-25-2024 Glucose [Mass/Vol] 98 mg/dL 70-99 [facility] Serum or plasma alanine saul otransferase (ALT) measurementOrdered By: Jaden Jauregui on 08-25-2024 ALT [Catalytic activity/Vol] 32 U/L <47 [facility] Serum or plasma albumin luis urement (mass/volume)Ordered By: Jaden Jauregui on 08-25-2024 Albumin [Mass/Vol] 4.5 g/dL 3.4-4.8 [facility] Serum or plasma albumin/glob ulin mass ratioOrdered By: Jaden Jauregui on 08-25-2024 Albumin/Globulin [Mass ratio] 1.4 {ratio} 0.9-2.4 [facility] Serum or plasma alkaline kathleen sphatase measurementOrdered By: Jaden Jauregui on 08-25-2024 ALP [Catalytic activity/Vol] 77 U/L 40-129 [facility] Serum or plasma calcium luis urement (mass/volume)Ordered By: Jaden Jauregui on 08-25-2024 Calcium [Mass/Vol] 10.0 mg/dL 7.6-11.0 [facility] Serum or plasma urea nitroge n measurement (mass/volume)Ordered By: Jaden Jauregui on 08-25-2024 Urea nitrogen [Mass/Vol] 25 mg/dL High 4-19 [facility] Sodium levelOrdered By: Maurice Jauregui on 08-25-2024 Sodium [Moles/Vol] 139 mmol/L 133-145 [facility] Total proteinOrdered By: Rad Jauregui on 08-25-2024 Protein [Mass/Vol] 7.7 g/dL 5.9-8.4 [facility] White blood cell (WBC) count Ordered By: Jaden Jauregui on 08-25-2024 WBC (Bld) [#/Vol] 5.9 10*3/uL 4.4-11.0 [facility] 56-FJ-Dhqkynd DOrdered By: Landry Prather on 07-15-2024 Vitamin [...] 07-15-2024 Neutrophils (Bld) [#/Vol] 2.7 10*3/uL 2.0-7.7 [facility] Albumin to globulin ratioOrd ered By: Carla Prather on 07-15-2024 Albumin/Globulin [Mass ratio] 1.0 {ratio} Normal 0.9-2.4 [facility] Comment on above: Order Comment: 414-2 Performed By: #### L 500.4050, L100.0100, L506.1000, L501.9985, L501.7900, L503.0105, L501.5200 ####[facility] [address] [place], [place], [address] Basophil percentageOrdered B y: Carla Prather on 07-15-2024 Basophils/100 WBC (Bld) 1.4 % High 0-1 [facility] Bilirubin, totalOrdered By: Carla Prather on 07-15-2024 Bilirubin [Mass/Vol] 0.30 mg/dL Normal 0.20-1.00 [facility] Comment on above: For patients on eltr ombopag therapy, use of [employer]ension [place] TBIL is not recommended. Order Comment: 414-2 Result Comment: For patients on eltrombopag therapy, use of [employer] [place] TBIL is not recommended. Performed By: #### L 500.4050, L100.0100, L506.1000, L501.9985, L501.7900, L503.0105, L501.5200 ####[facility] [address] [place], [place], [id number] Blood urea nitrogen (BUN)/cr eatinine ratioOrdered By: Carla Prather on 07-15-2024 Urea nitrogen/Creatinine [Mass ratio] 25.4 mg/mg High 10-20 [facility] CBC W/Diff, Automatedon 06-20 Absolute Lymph 1.38 X10 3/uL Normal 0.83-4.51 [facility] Comment on above: Order Comment: 414-2 Performed By: #### L 500.4050, L100.0100, L506.1000, L501.9985, L501.7900, L503.0105, L501.5200 ####[facility] [address] [place], [address] Absolute Neut 2.7 X10 3/uL Normal 2.0-7.7 [facility] Comment on above: Order Comment: 414-2 Performed By: #### L 500.4050, L100.0100, L506.1000, L501.9985, L501.7900, L503.0105, L501.5200 ####[facility] [address] [place], [address] Basophils/100 WBC (Bld) 1.4 % High 0-1 [facility] Comment on above: Order Comment: 414-2 Performed By: #### L 500.4050, L100.0100, L506.1000, L501.9985, L501.7900, L503.0105, L501.5200 ####[facility] [address] [place], [address] Eosinophils/100 WBC (Bld) 9.4 % High 0-5 [facility] Comment on above: Order Comment: 414-2 Performed By: #### L 500.4050, L100.0100, L506.1000, L501.9985, L501.7900, L503.0105, L501.5200 ####[facility] [address] [place], [address] Erythrocyte distribution width (RBC) [Ratio] 12.8 % Normal 11.6-14.6 [facility] Comment on above: Order Comment: 414-2 Performed By: #### L 500.4050, L100.0100, L506.1000, L501.9985, L501.7900, L503.0105, L501.5200 ####[facility] [address] [place], [address] Hematocrit (Bld) [Volume fraction] 45.8 % Normal 40-54 [facility] Comment on above: Order Comment: 414-2 Performed By: #### L 500.4050, L100.0100, L506.1000, L501.9985, L501.7900, L503.0105, L501.5200 ####[facility] [address] [place], [address] Hemoglobin (Bld) [Mass/Vol] 14.8 g/dL Normal 13.0-16.5 [facility] Comment on above: Order Comment: 414-2 Performed By: #### L 500.4050, L100.0100, L506.1000, L501.9985, L501.7900, L503.0105, L501.5200 ####[facility] [address] [place], [address] IG% 0.400 Normal 0.0-0.9 [facility] Comment on above: Order Comment: 414-2 Result Comment: IG% - Immature Granulocytes (promyelocytes, myelocytes andmetamyelocytes) > 1% indicates that a LEFT SHIFT is Present. Performed By: #### L 500.4050, L100.0100, L506.1000, L501.9985, L501.7900, L503.0105, L501.5200 ####[facility] [address] [place], [address] Lymphocytes/100 WBC (Bld) 26.9 % Normal 19-41 [facility] Comment on above: Order Comment: 414-2 Performed By: #### L 500.4050, L100.0100, L506.1000, L501.9985, L501.7900, L503.0105, L501.5200 ####[facility] [address] [place], [address] MCH (RBC) [Entitic mass] 31.2 pg Normal 27.0-32.0 [facility] Comment on above: Order Comment: 414-2 Performed By: #### L 500.4050, L100.0100, L506.1000, L501.9985, L501.7900, L503.0105, L501.5200 ####[facility] [address] [place], [address] MCHC (RBC) [Mass/Vol] 32.3 g/dL Normal 32-36 [facility] Comment on above: Order Comment: 414-2 Performed By: #### L 500.4050, L100.0100, L506.1000, L501.9985, L501.7900, L503.0105, L501.5200 ####[facility] [address] [place], [address] MCV (RBC) [Entitic vol] 96.4 fL High 80-94 [facility] Comment on above: Order Comment: 414-2 Performed By: #### L 500.4050, L100.0100, L506.1000, L501.9985, L501.7900, L503.0105, L501.5200 ####[facility] [address] [place], [address] Monocytes/100 WBC (Bld) 8.8 % Normal 0-10 [facility] Comment on above: Order Comment: 414-2 Performed By: #### L 500.4050, L100.0100, L506.1000, L501.9985, L501.7900, L503.0105, L501.5200 ####[facility] [address] [place], [address] Neutrophils/100 WBC (Bld) 53.1 % Normal 47-70 [facility] Comment on above: Order Comment: 414-2 Performed By: #### L 500.4050, L100.0100, L506.1000, L501.9985, L501.7900, L503.0105, L501.5200 ####[facility] [id number] [place], [address] Nucleated RBC (Bld) [#/Vol] 0 10*3/uL Normal 0-5 [facility] Comment on above: Order Comment: 414-2 Performed By: #### L 500.4050, L100.0100, L506.1000, L501.9985, L501.7900, L503.0105, L501.5200 ####[facility] [id number] [place], [address] Platelet mean volume (Bld) [Entitic vol] 9.6 fL Normal 6.2-12.0 [facility] Comment on above: Order Comment: 414-2 Performed By: #### L 500.4050, L100.0100, L506.1000, L501.9985, L501.7900, L503.0105, L501.5200 ####[facility] [id number] [place], [address] Platelets (Bld) [#/Vol] 295 10*3/uL Normal 150-450 [facility] Comment on above: Order Comment: 414-2 Performed By: #### L 500.4050, L100.0100, L506.1000, L501.9985, L501.7900, L503.0105, L501.5200 ####[facility] [id number] [place], [address] RBC (Bld) [#/Vol] 4.75 10*6/uL Normal 4.6-6.2 [facility] Comment on above: Order Comment: 414-2 Performed By: #### L 500.4050, L100.0100, L506.1000, L501.9985, L501.7900, L503.0105, L501.5200 ####[facility] [address] [place], [address] RDW SD 45.4 fl High 35.1-43.9 [facility] Comment on above: Order Comment: 414-2 Performed By: #### L 500.4050, L100.0100, L506.1000, L501.9985, L501.7900, L503.0105, L501.5200 ####[facility] [address] [place], [place], [id number] WBC (Bld) [#/Vol] 5.1 10*3/uL Normal 4.4-11.0 [facility] Comment on above: Order Comment: 414-2 Performed By: #### L 500.4050, L100.0100, L506.1000, L501.9985, L501.7900, L503.0105, L501.5200 ####[facility] [address] [place], [place], [id number] Carbamazepine (Tegretol)on 07-15-2024 CARBAMAZEPINE 7.0 ug/mL Normal 4.0-12.0 [facility] Comment on above: Order Comment: 414-2 Performed By: #### L 500.4050, L100.0100, L506.1000, L501.9985, L501.7900, L503.0105, L501.5200 ####[facility] [address] [place], [place], [phone] Carbon dioxide measurementOr dered By: Carla Prather on 07-15-2024 CO2 [Moles/Vol] 24.0 mmol/L Normal 21.0-32.0 [facility] Comment on above: Order Comment: 414-2 Performed By: #### L 500.4050, L100.0100, L506.1000, L501.9985, L501.7900, L503.0105, L501.5200 ####[facility] [address] [place], [address] Chloride measurementOrdered By: Carla Prather on 07-15-2024 Chloride [Moles/Vol] 107 mmol/L Normal 98-107 [facility] Comment on above: Order Comment: 414-2 Performed By: #### L 500.4050, L100.0100, L506.1000, L501.9985, L501.7900, L503.0105, L501.5200 ####[facility] [address] [place], [place], [phone] Comprehensive Metabolic Prof ilon 07-15-2024 ALK P 70 U/L Normal 45-117 [facility] Comment on above: Order Comment: 414-2 Performed By: #### L 500.4050, L100.0100, L506.1000, L501.9985, L501.7900, L503.0105, L501.5200 ####[facility] [address] [place], [place], [id number] BUN/CRE 25.4 RATIO High 10-20 [facility] Comment on above: Order Comment: 414-2 Performed By: #### L 500.4050, L100.0100, L506.1000, L501.9985, L501.7900, L503.0105, L501.5200 ####[facility] [address] [place], [address] CA,Total 10.1 mg/dL Normal 8.5-10.1 [facility] Comment on above: Order Comment: 414-2 Performed By: #### L 500.4050, L100.0100, L506.1000, L501.9985, L501.7900, L503.0105, L501.5200 ####[facility] [address] [place], [place], [address] EST GFR - AA 77 mL/min Normal >60 [facility] Comment on above: Order Comment: 414-2 Result Comment: Afri can Austrian GFR Calc Performed By: #### L 500.4050, L100.0100, L506.1000, L501.9985, L501.7900, L503.0105, L501.5200 ####[facility] [address] [place], [address] GAP 7 Normal 5-15 [facility] Comment on above: Order Comment: 414-2 Performed By: #### L 500.4050, L100.0100, L506.1000, L501.9985, L501.7900, L503.0105, L501.5200 ####[facility] [address] [place], [address] GFR/1.73 sq M.predicted among non-blacks MDRD (S/P/Bld) [Vol rate/Area] 64 mL/min/{1.73_m2} Normal >60 [facility] Comment on above: Order Comment: 414-2 Result Comment: Non- GFR Calc Performed By: #### L 500.4050, L100.0100, L506.1000, L501.9985, L501.7900, L503.0105, L501.5200 ####[facility] [address] [place], [address] T PROT 8.0 g/dL Normal 6.4-8.2 [facility] Comment on above: Order Comment: 414-2 Performed By: #### L 500.4050, L100.0100, L506.1000, L501.9985, L501.7900, L503.0105, L501.5200 ####[facility] [address] [place], [place], [phone] Comprehensive Metabolic Prof ilOrdered By: Carla Prather on 07-15-2024 AST [Catalytic activity/Vol] 23 U/L Normal 15-37 [facility] Comment on above: Order Comment: 414-2 Performed By: #### L 500.4050, L100.0100, L506.1000, L501.9985, L501.7900, L503.0105, L501.5200 ####[facility] [address] [place], [address] Eosinophil percentageOrdered By: Carla Prather on 07-15-2024 Eosinophils/100 WBC (Bld) 9.4 % High 0-5 [facility] Erythrocyte distribution wid th ratioOrdered By: Carlaangeline Prather on 07-15-2024 Erythrocyte distribution width (RBC) [Ratio] 12.8 % 11.6-14.6 [facility] Erythrocyte distribution wid th standard deviationOrdered By: Carla Prather on 07-15-2024 Erythrocyte distribution width (RBC) [Entitic vol] 45.4 fL High 35.1-43.9 [facility] Estimated glomerular filtrat ion rate (GFR) AmericanOrdered By: Carla Prather on 07-15-2024 Estimated GFR (MDRD) Amer 77 mL/min >60 [facility] Comment on above: GFR Calc Glomerular filtration rate ( GFR) estimationOrdered By: Carla Prather on 07-15-2024 Estimated GFR (MDRD) Non-Af Amer 64 mL/min >60 [facility] Comment on above: Non- GFR Calc Glucose measurementOrdered B y: Carla Prather on 07-15-2024 Glucose [Mass/Vol] 103 mg/dL Normal 74-106 [facility] Comment on above: Fasting Glucose resu lt from 100 to 125 mg/dL suggests IMPAIRED HOMEOSTASIS per A.D.A. criteria. Order Comment: 414-2 Result Comment: Fast ing Glucose result from 100 to 125 mg/dLsuggests IMPAIRED HOMEOSTASIS per A.D.A. criteria. Performed By: #### L 500.4050, L100.0100, L506.1000, L501.9985, L501.7900, L503.0105, L501.5200 ####[facility] [address] [place], [place], [address] Hematocrit Auto (Bld) [Volum e fraction]Ordered By: Carla Prather on 07-15-2024 Hematocrit (Bld) [Volume fraction] 45.8 % 40-54 [facility] Hemoglobin A1con 07-15-2024 HbA1c (Bld) [Mass fraction] 5.6 % Normal 3.8-5.6 [facility] Comment on above: Order Comment: 414-2 Result Comment: Norm al < 5.7 % Prediabetic 5.7 - 6.4 % Diabetic >or= 6.5 % Please note range changes. Performed By: #### L 500.4050, L100.0100, L506.1000, L501.9985, L501.7900, L503.0105, L501.5200 ####[facility] [address] [place], [place], [phone] Hemoglobin A1c percentageOrd ered By: Carla Prather on 07-15-2024 HbA1c (Bld) [Mass fraction] 5.6 % 3.8-5.6 [facility] Comment on above: Normal < 5.7 % Predi abetic 5.7 - 6.4 % Diabetic >or= 6.5 % Please note range changes. Hemoglobin measurementOrdere d By: Carla Prather on 07-15-2024 Hemoglobin (Bld) [Mass/Vol] 14.8 g/dL 13.0-16.5 [facility] Immature granulocytes/100 WB C Auto (Bld)Ordered By: Carla Prather on 07-15-2024 Immature granulocytes/100 WBC (Bld) 0.400 % 0.0-0.9 [facility] Comment on above: IG% - Immature Granu locytes (promyelocytes, myelocytes and metamyelocytes) > 1% indicates that a LEFT SHIFT is Present. Lymphocytes Auto (Unsp spec) [#/Vol]Ordered By: Carla Prather on 07-15-2024 Lymphocytes (Bld) [#/Vol] 1.38 10*3/uL 0.83-4.51 [facility] Lymphocytes/100 WBC Auto (Un sp spec)Ordered By: Carla Prather on 07-15-2024 Lymphocytes/100 WBC (Bld) 26.9 % 19-41 [facility] MCV (mean corpuscular volume ) determinationOrdered By: Carla Prather on 07-15-2024 MCV (RBC) [Entitic vol] 96.4 fL High 80-94 [facility] Magnesium measurementOrdered By: Carla Prather on 07-15-2024 Magnesium [Mass/Vol] 2.1 mg/dL Normal 1.6-2.6 [facility] Comment on above: Order Comment: 414-2 Performed By: #### L 500.4050, L100.0100, L506.1000, L501.9985, L501.7900, L503.0105, L501.5200 ####[facility] [address] [place], [address] Mean corpuscular hemoglobin (MCH) determinationOrdered By: Carla Prather on 07-15-2024 MCH (RBC) [Entitic mass] 31.2 pg 27.0-32.0 [facility] Mean corpuscular hemoglobin concentration (MCHC) determinationOrdered By: Carla Prather on 07-15-2024 MCHC (RBC) [Mass/Vol] 32.3 g/dL 32-36 [facility] Mean platelet volume determi nationOrdered By: Carla Prather on 07-15-2024 Platelet mean volume (Bld) [Entitic vol] 9.6 fL 6.2-12.0 [facility] Monocyte percentageOrdered B y: Carla Prather on 07-15-2024 Monocytes/100 WBC (Bld) 8.8 % 0-10 [facility] Neutrophil percentageOrdered By: Carla Prather on 07-15-2024 Neutrophils/100 WBC (Bld) 53.1 % 47-70 [facility] Nucleated red blood cell per centageOrdered By: Carla Prather on 07-15-2024 Nucleated RBC/100 WBC (Bld) [Ratio] 0 % 0-5 [facility] Platelet countOrdered By: Wilfredo Prather on 07-15-2024 Platelets (Bld) [#/Vol] 295 10*3/uL 150-450 [facility] Potassium measurementOrdered By: Carla Prather on 07-15-2024 Potassium [Moles/Vol] 3.8 mmol/L Normal 3.5-5.1 [facility] Comment on above: Order Comment: 414-2 Performed By: #### L 500.4050, L100.0100, L506.1000, L501.9985, L501.7900, L503.0105, L501.5200 ####[facility] [address] [place], [address] RBC Auto (Bld) [#/Vol]Ordere d By: Carla Prather on 07-15-2024 RBC (Bld) [#/Vol] 4.75 10*6/uL 4.6-6.2 [facility] Serum anion gap measurementO rdered By: Carla Prather on 07-15-2024 Anion gap [Moles/Vol] 7 mmol/L 5-15 [facility] Serum globulin measurementOr dered By: Carla Prather on 07-15-2024 Globulin (S) [Mass/Vol] 4.1 g/dL Normal 2.2-4.2 [facility] Comment on above: Order Comment: 414-2 Performed By: #### L 500.4050, L100.0100, L506.1000, L501.9985, L501.7900, L503.0105, L501.5200 ####[facility] [address] [place], [place], [phone] Serum or plasma alanine saul otransferase (ALT) measurementOrdered By: Carla Prather on 07-15-2024 ALT [Catalytic activity/Vol] 37 U/L Normal 16-61 [facility] Comment on above: Order Comment: 414-2 Performed By: #### L 500.4050, L100.0100, L506.1000, L501.9985, L501.7900, L503.0105, L501.5200 ####[facility] [address] [place], [address] Serum or plasma albumin luis urement (mass/volume)Ordered By: Carla Prather on 07-15-2024 Albumin [Mass/Vol] 3.9 g/dL Normal 3.2-5.0 [facility] Comment on above: Order Comment: 414-2 Performed By: #### L 500.4050, L100.0100, L506.1000, L501.9985, L501.7900, L503.0105, L501.5200 ####[facility] [address] [place], [place], [phone] Serum or plasma alkaline kathleen sphatase measurementOrdered By: Carla Prather on 07-15-2024 ALP [Catalytic activity/Vol] 70 U/L 45-117 [facility] Serum or plasma calcium luis urement (mass/volume)Ordered By: Carla Prather on 07-15-2024 Calcium [Mass/Vol] 10.1 mg/dL 8.5-10.1 [facility] Serum or plasma creatinine m easurement (mass/volume)Ordered By: Carla Prather on 07-15-2024 Creatinine [Mass/Vol] 1.18 mg/dL Normal 0.70-1.30 [facility] Comment on above: The validity of the calculated GFR & GFRAA in patients over 70 years has not been determined. Clinical correlation is essential. Order Comment: 414-2 Result Comment: The validity of the calculated GFR GFRAA in patients over70 years has not been determined. Clinical correlation isessential. Performed By: #### L 500.4050, L100.0100, L506.1000, L501.9985, L501.7900, L503.0105, L501.5200 ####[facility] [address] [place], [address] Serum or plasma urea nitroge n measurement (mass/volume)Ordered By: Carla Prather on 07-15-2024 Urea nitrogen [Mass/Vol] 30 mg/dL High 7-18 [facility] Comment on above: Order Comment: 414-2 Performed By: #### L 500.4050, L100.0100, L506.1000, L501.9985, L501.7900, L503.0105, L501.5200 ####[facility] [address] [place], [address] Sodium levelOrdered By: Luca Prather on 07-15-2024 Sodium [Moles/Vol] 138 mmol/L Normal 136-145 [facility] Comment on above: Order Comment: 414-2 Performed By: #### L 500.4050, L100.0100, L506.1000, L501.9985, L501.7900, L503.0105, L501.5200 ####[facility] [address] [place], [place], [id number] Total proteinOrdered By: Ming Prather on 07-15-2024 Protein [Mass/Vol] 8.0 g/dL 6.4-8.2 [facility] Vitamin B12on 07-15-2024 Cobalamin (Vitamin B12) [Mass/Vol] 692 pg/mL Normal 91 [facility] Comment on above: Order Comment: 414-2 Performed By: #### L 500.4050, L100.0100, L506.1000, L501.9985, L501.7900, L503.0105, L501.5200 ####[facility] [address] [place], [place], [id number] Vitamin B12 measurementOrder ed By: Carla Prather on 07-15-2024 Cobalamin (Vitamin B12) [Mass/Vol] 692 pg/mL - [facility] Vitamin D,25 Hydroxyon 07-15 Vitamin D 25-OH 36.0 ng/mL Normal [facility] Comment on above: Order Comment: 414-2 Result Comment: Teri min D 25(OH) Status Range Deficiency <20 ng/mL (50nmol/L) Insufficiency 20 - 30 ng/mL (50 - 75 nmol/L) Sufficiency 30 - 100 ng/mL (75 - 250 nmol/L) Toxicity >100 ng/mL (>250 nmol/L) Performed By: #### L 500.4050, L100.0100, L506.1000, L501.9985, L501.7900, L503.0105, L501.5200 ####[facility] [address] [place], [address] White blood cell (WBC) count Ordered By: Carla Prather on 07-15-2024 WBC (Bld) [#/Vol] 5.1 10*3/uL 4.4-11.0 [facility] carBAMazepine [Mass/Vol]Orde red By: Carla Prather on 07-15-2024 Carbamazepine (Tegretol) Level 7.0 ug/mL 4.0-12.0 [facility] Basic Metabolic Profile (BMP )on 04-15-2024 BUN Normal 7-18 [facility] Comment on above: Result Comment: Canc elled via OM: Order cancelled - Patient discharged Performed By: #### L 100.0100, L500.2500 ####[facility] [address] [place], [address] BUN/CRE Normal 10-20 [facility] Comment on above: Result Comment: Canc elled via OM: Order cancelled - Patient discharged Performed By: #### L 100.0100, L500.2500 ####[facility] [address] [place], [address] CA,Total Normal 8.5-10.1 [facility] Comment on above: Result Comment: Canc elled via OM: Order cancelled - Patient discharged Performed By: #### L 100.0100, L500.2500 ####[facility] [address] [place], [address] CL Normal 98-107 [facility] Comment on above: Result Comment: Canc elled via OM: Order cancelled - Patient discharged Performed By: #### L 100.0100, L500.2500 ####[facility] [address] [place], [address] CO2 Normal 21.0-32.0 [facility] Comment on above: Result Comment: Canc elled via OM: Order cancelled - Patient discharged Performed By: #### L 100.0100, L500.2500 ####[facility] [address] [place], [address] CREAT,SERUM Normal 0.70-1.30 [facility] Comment on above: Result Comment: Canc elled via OM: Order cancelled - Patient discharged Performed By: #### L 100.0100, L500.2500 ####[facility] [address] [place], [address] EST GFR Normal >60 [facility] Comment on above: Result Comment: Canc elled via OM: Order cancelled - Patient discharged Performed By: #### L 100.0100, L500.2500 ####[facility] [address] [place], [address] EST GFR - AA Normal >60 [facility] Comment on above: Result Comment: Canc elled via OM: Order cancelled - Patient discharged Performed By: #### L 100.0100, L500.2500 ####[facility] [address] [place], [address] GAP Normal 5-15 [facility] Comment on above: Result Comment: Canc elled via OM: Order cancelled - Patient discharged Performed By: #### L 100.0100, L500.2500 ####[facility] [address] [place], [address] GLU Normal 74-106 [facility] Comment on above: Result Comment: Canc elled via OM: Order cancelled - Patient discharged Performed By: #### L 100.0100, L500.2500 ####[facility] [address] [place], [address] Potassium Normal 3.5-5.1 [facility] Comment on above: Result Comment: Canc elled via OM: Order cancelled - Patient discharged Performed By: #### L 100.0100, L500.2500 ####[facility] [address] [place], [address] Basic Metabolic Profile (BMP) Normal 136-145 [facility] Comment on above: Result Comment: Canc elled via OM: Order cancelled - Patient discharged Performed By: #### L 100.0100, L500.2500 ####[facility] [address] [place], [address] CBC W/Diff, Automatedon 10-2 Absolute Neut Normal 2.0-7.7 [facility] Comment on above: Result Comment: Canc elled via OM: Order cancelled - Patient discharged Performed By: #### L 100.0100, L500.2500 ####[facility] [address] [place], [address] HCT Normal 40-54 [facility] Comment on above: Result Comment: Canc elled via OM: Order cancelled - Patient discharged Performed By: #### L 100.0100, L500.2500 ####[facility] [address] [place], [address] HGB Normal 13.0-16.5 [facility] Comment on above: Result Comment: Canc elled via OM: Order cancelled - Patient discharged Performed By: #### L 100.0100, L500.2500 ####[facility] [address] [place], [address] MCH Normal 27.0-32.0 [facility] Comment on above: Result Comment: Canc elled via OM: Order cancelled - Patient discharged Performed By: #### L 100.0100, L500.2500 ####[facility] [address] [place], [address] MCHC Normal 32-36 [facility] Comment on above: Result Comment: Canc elled via OM: Order cancelled - Patient discharged Performed By: #### L 100.0100, L500.2500 ####[facility] [address] [place], [address] MCV Normal 80-94 [facility] Comment on above: Result Comment: Canc elled via OM: Order cancelled - Patient discharged Performed By: #### L 100.0100, L500.2500 ####[facility] [address] [place], [address] NEUT% Normal 47-70 [facility] Comment on above: Result Comment: Canc elled via OM: Order cancelled - Patient discharged Performed By: #### L 100.0100, L500.2500 ####[facility] [address] [place], [address] PLT Normal 150-450 [facility] Comment on above: Result Comment: Canc elled via OM: Order cancelled - Patient discharged Performed By: #### L 100.0100, L500.2500 ####[facility] [address] [place], [address] RBC Normal 4.6-6.2 [facility] Comment on above: Result Comment: Canc elled via OM: Order cancelled - Patient discharged Performed By: #### L 100.0100, L500.2500 ####[facility] [address] [place], [address] RDW CV Normal 11.6-14.6 [facility] Comment on above: Result Comment: Canc elled via OM: Order cancelled - Patient discharged Performed By: #### L 100.0100, L500.2500 ####[facility] [address] [place], [address] RDW SD Normal 35.1-43.9 [facility] Comment on above: Result Comment: Canc elled via OM: Order cancelled - Patient discharged Performed By: #### L 100.0100, L500.2500 ####[facility] [address] [place], [address] WBC Normal 4.4-11.0 [facility] Comment on above: Result Comment: Canc elled via OM: Order cancelled - Patient discharged Performed By: #### L 100.0100, L500.2500 ####[facility] [address] [place], [address] Basic Metabolic Profile (BMP )on 04-14-2024 BUN Normal 7-18 [facility] Comment on above: Result Comment: Canc elled via OM: Order cancelled - Patient discharged Performed By: #### L 100.0100, L500.2500 ####[facility] [address] [place], [address] BUN/CRE Normal 10-20 [facility] Comment on above: Result Comment: Canc elled via OM: Order cancelled - Patient discharged Performed By: #### L 100.0100, L500.2500 ####[facility] [address] [place], [address] CA,Total Normal 8.5-10.1 [facility] Comment on above: Result Comment: Canc elled via OM: Order cancelled - Patient discharged Performed By: #### L 100.0100, L500.2500 ####[facility] [address] [place], [address] CL Normal 98-107 [facility] Comment on above: Result Comment: Canc elled via OM: Order cancelled - Patient discharged Performed By: #### L 100.0100, L500.2500 ####[facility] [address] [place], [address] CO2 Normal 21.0-32.0 [facility] Comment on above: Result Comment: Canc elled via OM: Order cancelled - Patient discharged Performed By: #### L 100.0100, L500.2500 ####[facility] [address] [place], [address] CREAT,SERUM Normal 0.70-1.30 [facility] Comment on above: Result Comment: Canc elled via OM: Order cancelled - Patient discharged Performed By: #### L 100.0100, L500.2500 ####[facility] [address] [place], [address] EST GFR Normal >60 [facility] Comment on above: Result Comment: Canc elled via OM: Order cancelled - Patient discharged Performed By: #### L 100.0100, L500.2500 ####[facility] [address] [place], [address] EST GFR - AA Normal >60 [facility] Comment on above: Result Comment: Canc elled via OM: Order cancelled - Patient discharged Performed By: #### L 100.0100, L500.2500 ####[facility] [address] [place], [address] GAP Normal 5-15 [facility] Comment on above: Result Comment: Canc elled via OM: Order cancelled - Patient discharged Performed By: #### L 100.0100, L500.2500 ####[facility] [address] [place], [address] GLU Normal 74-106 [facility] Comment on above: Result Comment: Canc elled via OM: Order cancelled - Patient discharged Performed By: #### L 100.0100, L500.2500 ####[facility] [address] [place], [address] Potassium Normal 3.5-5.1 [facility] Comment on above: Result Comment: Canc elled via OM: Order cancelled - Patient discharged Performed By: #### L 100.0100, L500.2500 ####[facility] [address] [place], [address] Basic Metabolic Profile (BMP) Normal 136-145 [facility] Comment on above: Result Comment: Canc elled via OM: Order cancelled - Patient discharged Performed By: #### L 100.0100, L500.2500 ####[facility] [address] [place], [address] CBC W/Diff, Automatedon 10-2 Absolute Neut Normal 2.0-7.7 [facility] Comment on above: Result Comment: Canc elled via OM: Order cancelled - Patient discharged Performed By: #### L 100.0100, L500.2500 ####[facility] [address] [place], [address] HCT Normal 40-54 [facility] Comment on above: Result Comment: Canc elled via OM: Order cancelled - Patient discharged Performed By: #### L 100.0100, L500.2500 ####[facility] [address] [place], [address] HGB Normal 13.0-16.5 [facility] Comment on above: Result Comment: Canc elled via OM: Order cancelled - Patient discharged Performed By: #### L 100.0100, L500.2500 ####[facility] [address] [place], [address] MCH Normal 27.0-32.0 [facility] Comment on above: Result Comment: Canc elled via OM: Order cancelled - Patient discharged Performed By: #### L 100.0100, L500.2500 ####[facility] [address] [place], [address] MCHC Normal 32-36 [facility] Comment on above: Result Comment: Canc elled via OM: Order cancelled - Patient discharged Performed By: #### L 100.0100, L500.2500 ####[facility] [address] [place], [address] MCV Normal 80-94 [facility] Comment on above: Result Comment: Canc elled via OM: Order cancelled - Patient discharged Performed By: #### L 100.0100, L500.2500 ####[facility] [address] [place], [address] NEUT% Normal 47-70 [facility] Comment on above: Result Comment: Canc elled via OM: Order cancelled - Patient discharged Performed By: #### L 100.0100, L500.2500 ####[facility] [address] [place], [address] PLT Normal 150-450 [facility] Comment on above: Result Comment: Canc elled via OM: Order cancelled - Patient discharged Performed By: #### L 100.0100, L500.2500 ####[facility] [address] [place], [address] RBC Normal 4.6-6.2 [facility] Comment on above: Result Comment: Canc elled via OM: Order cancelled - Patient discharged Performed By: #### L 100.0100, L500.2500 ####[facility] [address] [place], [address] RDW CV Normal 11.6-14.6 [facility] Comment on above: Result Comment: Canc elled via OM: Order cancelled - Patient discharged Performed By: #### L 100.0100, L500.2500 ####[facility] [address] [place], [address] RDW SD Normal 35.1-43.9 [facility] Comment on above: Result Comment: Canc elled via OM: Order cancelled - Patient discharged Performed By: #### L 100.0100, L500.2500 ####[facility] [address] [place], [address] WBC Normal 4.4-11.0 [facility] Comment on above: Result Comment: Canc elled via OM: Order cancelled - Patient discharged Performed By: #### L 100.0100, L500.2500 ####[facility] [address] [place], [address] Basic Metabolic Profile (BMP )on 04-13-2024 BUN Normal 7-18 [facility] Comment on above: Result Comment: Canc elled via OM: Order cancelled - Patient discharged Performed By: #### L 100.0100, L500.2500 ####[facility] [address] [place], [address] BUN/CRE Normal 10-20 [facility] Comment on above: Result Comment: Canc elled via OM: Order cancelled - Patient discharged Performed By: #### L 100.0100, L500.2500 ####[facility] [address] [place], [address] CA,Total Normal 8.5-10.1 [facility] Comment on above: Result Comment: Canc elled via OM: Order cancelled - Patient discharged Performed By: #### L 100.0100, L500.2500 ####[facility] [address] [place], [address] CL Normal 98-107 [facility] Comment on above: Result Comment: Canc elled via OM: Order cancelled - Patient discharged Performed By: #### L 100.0100, L500.2500 ####[facility] [address] [place], [address] CO2 Normal 21.0-32.0 [facility] Comment on above: Result Comment: Canc elled via OM: Order cancelled - Patient discharged Performed By: #### L 100.0100, L500.2500 ####[facility] [address] [place], [address] CREAT,SERUM Normal 0.70-1.30 [facility] Comment on above: Result Comment: Canc elled via OM: Order cancelled - Patient discharged Performed By: #### L 100.0100, L500.2500 ####[facility] [address] [place], [address] EST GFR Normal >60 [facility] Comment on above: Result Comment: Canc elled via OM: Order cancelled - Patient discharged Performed By: #### L 100.0100, L500.2500 ####[facility] [address] [place], [address] EST GFR - AA Normal >60 [facility] Comment on above: Result Comment: Canc elled via OM: Order cancelled - Patient discharged Performed By: #### L 100.0100, L500.2500 ####[facility] [address] [place], [address] GAP Normal 5-15 [facility] Comment on above: Result Comment: Canc elled via OM: Order cancelled - Patient discharged Performed By: #### L 100.0100, L500.2500 ####[facility] [address] [place], [address] GLU Normal 74-106 [facility] Comment on above: Result Comment: Canc elled via OM: Order cancelled - Patient discharged Performed By: #### L 100.0100, L500.2500 ####[facility] [address] [place], [address] Potassium Normal 3.5-5.1 [facility] Comment on above: Result Comment: Canc elled via OM: Order cancelled - Patient discharged Performed By: #### L 100.0100, L500.2500 ####[facility] [address] [place], [address] Basic Metabolic Profile (BMP) Normal 136-145 [facility] Comment on above: Result Comment: Canc elled via OM: Order cancelled - Patient discharged Performed By: #### L 100.0100, L500.2500 ####[facility] [address] [place], [address] CBC W/Diff, Automatedon 10-2 Absolute Neut Normal 2.0-7.7 [facility] Comment on above: Result Comment: Canc elled via OM: Order cancelled - Patient discharged Performed By: #### L 100.0100, L500.2500 ####[facility] [address] [place], [address] HCT Normal 40-54 [facility] Comment on above: Result Comment: Canc elled via OM: Order cancelled - Patient discharged Performed By: #### L 100.0100, L500.2500 ####[facility] [address] [place], [address] HGB Normal 13.0-16.5 [facility] Comment on above: Result Comment: Canc elled via OM: Order cancelled - Patient discharged Performed By: #### L 100.0100, L500.2500 ####[facility] [address] [place], [address] MCH Normal 27.0-32.0 [facility] Comment on above: Result Comment: Canc elled via OM: Order cancelled - Patient discharged Performed By: #### L 100.0100, L500.2500 ####[facility] [address] [place], [address] MCHC Normal 32-36 [facility] Comment on above: Result Comment: Canc elled via OM: Order cancelled - Patient discharged Performed By: #### L 100.0100, L500.2500 ####[facility] [address] [place], [address] MCV Normal 80-94 [facility] Comment on above: Result Comment: Canc elled via OM: Order cancelled - Patient discharged Performed By: #### L 100.0100, L500.2500 ####[facility] [address] [place], [address] NEUT% Normal 47-70 [facility] Comment on above: Result Comment: Canc elled via OM: Order cancelled - Patient discharged Performed By: #### L 100.0100, L500.2500 ####[facility] [address] [place], [address] PLT Normal 150-450 [facility] Comment on above: Result Comment: Canc elled via OM: Order cancelled - Patient discharged Performed By: #### L 100.0100, L500.2500 ####[facility] [address] [place], [address] RBC Normal 4.6-6.2 [facility] Comment on above: Result Comment: Canc elled via OM: Order cancelled - Patient discharged Performed By: #### L 100.0100, L500.2500 ####[facility] [address] [place], [address] RDW CV Normal 11.6-14.6 [facility] Comment on above: Result Comment: Canc elled via OM: Order cancelled - Patient discharged Performed By: #### L 100.0100, L500.2500 ####[facility] [address] [place], [address] RDW SD Normal 35.1-43.9 [facility] Comment on above: Result Comment: Canc elled via OM: Order cancelled - Patient discharged Performed By: #### L 100.0100, L500.2500 ####[facility] [address] [place], [address] WBC Normal 4.4-11.0 [facility] Comment on above: Result Comment: Canc elled via OM: Order cancelled - Patient discharged Performed By: #### L 100.0100, L500.2500 ####[facility] [address] [place], [address] Basic Metabolic Profile (BMP )on 04-12-2024 BUN/CRE 21.1 RATIO High 10-20 [facility] Comment on above: Order Comment: 306-2 Performed By: #### L 100.0500, L500.2500 ####[facility] [address] [place], [address] CA,Total 10.1 mg/dL Normal 8.5-10.1 [facility] Comment on above: Order Comment: 306-2 Performed By: #### L 100.0500, L500.2500 ####[facility] [address] [place], [address] Chloride [Moles/Vol] 106 mmol/L Normal 98-107 [facility] Comment on above: Order Comment: 306-2 Performed By: #### L 100.0500, L500.2500 ####[facility] [address] [place], [address] CO2 [Moles/Vol] 27.0 mmol/L Normal 21.0-32.0 [facility] Comment on above: Order Comment: 306-2 Performed By: #### L 100.0500, L500.2500 ####[facility] [address] [place], [address] Creatinine [Mass/Vol] 1.28 mg/dL Normal 0.70-1.30 [facility] Comment on above: Order Comment: 306-2 Result Comment: The validity of the calculated GFR GFRAA in patients over70 years has not been determined. Clinical correlation isessential. Performed By: #### L 100.0500, L500.2500 ####[facility] [address] [place], [address] EST GFR - AA 71 mL/min Normal >60 [facility] Comment on above: Order Comment: 306-2 Result Comment: Afri can [place] GFR Calc Performed By: #### L 100.0500, L500.2500 ####[facility] [address] [place], [address] GAP 7 Normal 5-15 [facility] Comment on above: Order Comment: 306-2 Performed By: #### L 100.0500, L500.2500 ####[facility] [address] [place], [address] GFR/1.73 sq M.predicted among non-blacks MDRD (S/P/Bld) [Vol rate/Area] 58 mL/min/{1.73_m2} Low >60 [facility] Comment on above: Order Comment: 306-2 Result Comment: Non- GFR Calc Performed By: #### L 100.0500, L500.2500 ####[facility] [address] [place], [address] Glucose [Mass/Vol] 94 mg/dL Normal 74-106 [facility] Comment on above: Order Comment: 306-2 Performed By: #### L 100.0500, L500.2500 ####[facility] [address] [place], [address] Potassium [Moles/Vol] 3.6 mmol/L Normal 3.5-5.1 [facility] Comment on above: Order Comment: 306-2 Performed By: #### L 100.0500, L500.2500 ####[facility] [address] [place], [address] Sodium [Moles/Vol] 140 mmol/L Normal 136-145 [facility] Comment on above: Order Comment: 306-2 Performed By: #### L 100.0500, L500.2500 ####[facility] [address] [place], [address] Urea nitrogen [Mass/Vol] 27 mg/dL High 7-18 [facility] Comment on above: Order Comment: 306-2 Performed By: #### L 100.0500, L500.2500 ####[facility] [address] [place], [address] BUN Normal 7-18 [facility] Comment on above: Result Comment: Canc elled via OM: Order cancelled - Patient discharged Performed By: #### L 500.2500, L100.0100 ####[facility] [address] [place], [address] BUN/CRE Normal 10-20 [facility] Comment on above: Result Comment: Canc elled via OM: Order cancelled - Patient discharged Performed By: #### L 500.2500, L100.0100 ####[facility] [address] [place], [address] CA,Total Normal 8.5-10.1 [facility] Comment on above: Result Comment: Canc elled via OM: Order cancelled - Patient discharged Performed By: #### L 500.2500, L100.0100 ####[facility] [address] [place], [address] CL Normal 98-107 [facility] Comment on above: Result Comment: Canc elled via OM: Order cancelled - Patient discharged Performed By: #### L 500.2500, L100.0100 ####[facility] [address] [place], [address] CO2 Normal 21.0-32.0 [facility] Comment on above: Result Comment: Canc elled via OM: Order cancelled - Patient discharged Performed By: #### L 500.2500, L100.0100 ####[facility] [address] [place], [address] CREAT,SERUM Normal 0.70-1.30 [facility] Comment on above: Result Comment: Canc elled via OM: Order cancelled - Patient discharged Performed By: #### L 500.2500, L100.0100 ####[facility] [address] [place], [address] EST GFR Normal >60 [facility] Comment on above: Result Comment: Canc elled via OM: Order cancelled - Patient discharged Performed By: #### L 500.2500, L100.0100 ####[facility] [address] [place], [address] EST GFR - AA Normal >60 [facility] Comment on above: Result Comment: Canc elled via OM: Order cancelled - Patient discharged Performed By: #### L 500.2500, L100.0100 ####[facility] [address] [place], [address] GAP Normal 5-15 [facility] Comment on above: Result Comment: Canc elled via OM: Order cancelled - Patient discharged Performed By: #### L 500.2500, L100.0100 ####[facility] [address] [place], [address] GLU Normal 74-106 [facility] Comment on above: Result Comment: Canc elled via OM: Order cancelled - Patient discharged Performed By: #### L 500.2500, L100.0100 ####[facility] [address] [place], [address] Potassium Normal 3.5-5.1 [facility] Comment on above: Result Comment: Canc elled via OM: Order cancelled - Patient discharged Performed By: #### L 500.2500, L100.0100 ####[facility] [address] [place], [address] Basic Metabolic Profile (BMP) Normal 136-145 [facility] Comment on above: Result Comment: Canc elled via OM: Order cancelled - Patient discharged Performed By: #### L 500.2500, L100.0100 ####[facility] [address] [place], [address] CBC W/Diff, Automatedon 10-2 -2023 Absolute Neut Normal 2.0-7.7 [facility] Comment on above: Result Comment: Canc elled via OM: Order cancelled - Patient discharged Performed By: #### L 500.2500, L100.0100 ####[facility] [address] [place], [address] HCT Normal 40-54 [facility] Comment on above: Result Comment: Canc elled via OM: Order cancelled - Patient discharged Performed By: #### L 500.2500, L100.0100 ####[facility] [address] [place], [address] HGB Normal 13.0-16.5 [facility] Comment on above: Result Comment: Canc elled via OM: Order cancelled - Patient discharged Performed By: #### L 500.2500, L100.0100 ####[facility] [address] [place], [address] MCH Normal 27.0-32.0 [facility] Comment on above: Result Comment: Canc elled via OM: Order cancelled - Patient discharged Performed By: #### L 500.2500, L100.0100 ####[facility] [address] [place], [address] MCHC Normal 32-36 [facility] Comment on above: Result Comment: Canc elled via OM: Order cancelled - Patient discharged Performed By: #### L 500.2500, L100.0100 ####[facility] [address] [place], [address] MCV Normal 80-94 [facility] Comment on above: Result Comment: Canc elled via OM: Order cancelled - Patient discharged Performed By: #### L 500.2500, L100.0100 ####[facility] [address] [place], [address] NEUT% Normal 47-70 [facility] Comment on above: Result Comment: Canc elled via OM: Order cancelled - Patient discharged Performed By: #### L 500.2500, L100.0100 ####[facility] [address] [place], [address] PLT Normal 150-450 [facility] Comment on above: Result Comment: Canc elled via OM: Order cancelled - Patient discharged Performed By: #### L 500.2500, L100.0100 ####[facility] [address] [place], [address] RBC Normal 4.6-6.2 [facility] Comment on above: Result Comment: Canc elled via OM: Order cancelled - Patient discharged Performed By: #### L 500.2500, L100.0100 ####[facility] [address] [place], [address] RDW CV Normal 11.6-14.6 [facility] Comment on above: Result Comment: Canc elled via OM: Order cancelled - Patient discharged Performed By: #### L 500.2500, L100.0100 ####[facility] [address] [place], [address] RDW SD Normal 35.1-43.9 [facility] Comment on above: Result Comment: Canc elled via OM: Order cancelled - Patient discharged Performed By: #### L 500.2500, L100.0100 ####[facility] [address] [place], [address] WBC Normal 4.4-11.0 [facility] Comment on above: Result Comment: Canc elled via OM: Order cancelled - Patient discharged Performed By: #### L 500.2500, L100.0100 ####[facility] [address] [place], [address] CBC-Complete Blood Cnt No Iris panchalon 04-12-2024 Erythrocyte distribution width (RBC) [Ratio] 13.3 % Normal 11.6-14.6 [facility] Comment on above: Order Comment: 306-2 Performed By: #### L 100.0500, L500.2500 ####[facility] [address] [place], [address] Hematocrit (Bld) [Volume fraction] 49.2 % Normal 40-54 [facility] Comment on above: Order Comment: 306-2 Performed By: #### L 100.0500, L500.2500 ####[facility] [address] [place], [address] Hemoglobin (Bld) [Mass/Vol] 16.4 g/dL Normal 13.0-16.5 [facility] Comment on above: Order Comment: 306-2 Performed By: #### L 100.0500, L500.2500 ####[facility] [address] [place], [address] MCH (RBC) [Entitic mass] 33.4 pg High 27.0-32.0 [facility] Comment on above: Order Comment: 306-2 Performed By: #### L 100.0500, L500.2500 ####[facility] [address] [place], [address] MCHC (RBC) [Mass/Vol] 33.3 g/dL Normal 32-36 [facility] Comment on above: Order Comment: 306-2 Performed By: #### L 100.0500, L500.2500 ####[facility] [address] [place], [address] MCV (RBC) [Entitic vol] 100.2 fL High 80-94 [facility] Comment on above: Order Comment: 306-2 Performed By: #### L 100.0500, L500.2500 ####[facility] [address] [place], [address] Platelet mean volume (Bld) [Entitic vol] 10.1 fL Normal 6.2-12.0 [facility] Comment on above: Order Comment: 306-2 Performed By: #### L 100.0500, L500.2500 ####[facility] [address] [place], [address] Platelets (Bld) [#/Vol] 305 10*3/uL Normal 150-450 [facility] Comment on above: Order Comment: 306-2 Performed By: #### L 100.0500, L500.2500 ####[facility] [address] [place], [address] RBC (Bld) [#/Vol] 4.91 10*6/uL Normal 4.6-6.2 [facility] Comment on above: Order Comment: 306-2 Performed By: #### L 100.0500, L500.2500 ####[facility] [address] [place], [address] RDW SD 49.8 fl High 35.1-43.9 [facility] Comment on above: Order Comment: 306-2 Performed By: #### L 100.0500, L500.2500 ####[facility] [address] [place], [address] WBC (Bld) [#/Vol] 7.4 10*3/uL Normal 4.4-11.0 [facility] Comment on above: Order Comment: 306-2 Performed By: #### L 100.0500, L500.2500 ####[facility] [address] [place], [address] Basic Metabolic Profile (BMP )on 04-11-2024 BUN Normal 7-18 [facility] Comment on above: Result Comment: Canc elled via OM: Order cancelled - Patient discharged Performed By: #### L 500.2500, L100.0100 ####[facility] [address] [place], [address] BUN/CRE Normal 10-20 [facility] Comment on above: Result Comment: Canc elled via OM: Order cancelled - Patient discharged Performed By: #### L 500.2500, L100.0100 ####[facility] [address] [place], [address] CA,Total Normal 8.5-10.1 [facility] Comment on above: Result Comment: Canc elled via OM: Order cancelled - Patient discharged Performed By: #### L 500.2500, L100.0100 ####[facility] [address] [place], [address] CL Normal 98-107 [facility] Comment on above: Result Comment: Canc elled via OM: Order cancelled - Patient discharged Performed By: #### L 500.2500, L100.0100 ####[facility] [address] [place], [address] CO2 Normal 21.0-32.0 [facility] Comment on above: Result Comment: Canc elled via OM: Order cancelled - Patient discharged Performed By: #### L 500.2500, L100.0100 ####[facility] [address] [place], [address] CREAT,SERUM Normal 0.70-1.30 [facility] Comment on above: Result Comment: Canc elled via OM: Order cancelled - Patient discharged Performed By: #### L 500.2500, L100.0100 ####[facility] [address] [place], [address] EST GFR Normal >60 [facility] Comment on above: Result Comment: Canc elled via OM: Order cancelled - Patient discharged Performed By: #### L 500.2500, L100.0100 ####[facility] [address] [place], [address] EST GFR - AA Normal >60 [facility] Comment on above: Result Comment: Canc elled via OM: Order cancelled - Patient discharged Performed By: #### L 500.2500, L100.0100 ####[facility] [address] [place], [address] GAP Normal 5-15 [facility] Comment on above: Result Comment: Canc elled via OM: Order cancelled - Patient discharged Performed By: #### L 500.2500, L100.0100 ####[facility] [address] [place], [address] GLU Normal 74-106 [facility] Comment on above: Result Comment: Canc elled via OM: Order cancelled - Patient discharged Performed By: #### L 500.2500, L100.0100 ####[facility] [address] [place], [address] Potassium Normal 3.5-5.1 [facility] Comment on above: Result Comment: Canc elled via OM: Order cancelled - Patient discharged Performed By: #### L 500.2500, L100.0100 ####[facility] [address] [place], [address] Basic Metabolic Profile (BMP) Normal 136-145 [facility] Comment on above: Result Comment: Canc elled via OM: Order cancelled - Patient discharged Performed By: #### L 500.2500, L100.0100 ####[facility] [address] [place], [address] CBC W/Diff, Automatedon 10-2 Absolute Neut Normal 2.0-7.7 [facility] Comment on above: Result Comment: Canc elled via OM: Order cancelled - Patient discharged Performed By: #### L 500.2500, L100.0100 ####[facility] [address] [place], [address] HCT Normal 40-54 [facility] Comment on above: Result Comment: Canc elled via OM: Order cancelled - Patient discharged Performed By: #### L 500.2500, L100.0100 ####[facility] [address] [place], [address] HGB Normal 13.0-16.5 [facility] Comment on above: Result Comment: Canc elled via OM: Order cancelled - Patient discharged Performed By: #### L 500.2500, L100.0100 ####[facility] [address] [place], [address] MCH Normal 27.0-32.0 [facility] Comment on above: Result Comment: Canc elled via OM: Order cancelled - Patient discharged Performed By: #### L 500.2500, L100.0100 ####[facility] [address] [place], [address] MCHC Normal 32-36 [facility] Comment on above: Result Comment: Canc elled via OM: Order cancelled - Patient discharged Performed By: #### L 500.2500, L100.0100 ####[facility] [address] [place], [address] MCV Normal 80-94 [facility] Comment on above: Result Comment: Canc elled via OM: Order cancelled - Patient discharged Performed By: #### L 500.2500, L100.0100 ####[facility] [facility] [address] [place], [address] NEUT% Normal 47-70 [facility] Comment on above: Result Comment: Canc elled via OM: Order cancelled - Patient discharged Performed By: #### L 500.2500, L100.0100 ####[facility] [address] [place], [address] PLT Normal 150-450 [facility] Comment on above: Result Comment: Canc elled via OM: Order cancelled - Patient discharged Performed By: #### L 500.2500, L100.0100 ####[facility] [address] [place], [address] RBC Normal 4.6-6.2 [facility] Comment on above: Result Comment: Canc elled via OM: Order cancelled - Patient discharged Performed By: #### L 500.2500, L100.0100 ####[facility] [address] [place], [address] RDW CV Normal 11.6-14.6 [facility] Comment on above: Result Comment: Canc elled via OM: Order cancelled - Patient discharged Performed By: #### L 500.2500, L100.0100 ####[facility] [address] [place], [address] RDW SD Normal 35.1-43.9 [facility] Comment on above: Result Comment: Canc elled via OM: Order cancelled - Patient discharged Performed By: #### L 500.2500, L100.0100 ####[facility] [address] [place], [address] WBC Normal 4.4-11.0 [facility] Comment on above: Result Comment: Canc elled via OM: Order cancelled - Patient discharged Performed By: #### L 500.2500, L100.0100 ####[facility] [address] [place], [address] Basic Metabolic Profile (BMP )on 04-10-2024 BUN/CRE 16.1 RATIO Normal 10-20 [facility] Comment on above: Performed By: #### L 100.0100, L500.2500 ####[facility] [address] [place], [address] CA,Total 9.4 mg/dL Normal 8.5-10.1 [facility] Comment on above: Performed By: #### L 100.0100, L500.2500 ####[facility] [address] [place], [address] Chloride [Moles/Vol] 106 mmol/L Normal 98-107 [facility] Comment on above: Performed By: #### L 100.0100, L500.2500 ####[facility] [address] [place], [address] CO2 [Moles/Vol] 25.0 mmol/L Normal 21.0-32.0 [facility] Comment on above: Performed By: #### L 100.0100, L500.2500 ####[facility] [address] [place], [address] Creatinine [Mass/Vol] 1.74 mg/dL High 0.70-1.30 [facility] Comment on above: Result Comment: The validity of the calculated GFR GFRAA in patients over70 years has not been determined. Clinical correlation isessential. Performed By: #### L 100.0100, L500.2500 ####[facility] [address] [place], [address] ECRCL 33.61 ml/min Normal [facility] Comment on above: Performed By: #### L 100.0100, L500.2500 ####[facility] [address] [place], [address] EST GFR - AA 50 mL/min Low >60 [facility] Comment on above: Result Comment: Afri can Austrian GFR Calc Performed By: #### L 100.0100, L500.2500 ####[facility] [address] [place], [address] GAP 5 Normal 5-15 [facility] Comment on above: Performed By: #### L 100.0100, L500.2500 ####[facility] [address] [place], [address] GFR/1.73 sq M.predicted among non-blacks MDRD (S/P/Bld) [Vol rate/Area] 41 mL/min/{1.73_m2} Low >60 [facility] Comment on above: Result Comment: Non- GFR Calc Performed By: #### L 100.0100, L500.2500 ####[facility] [address] [place], [address] Glucose [Mass/Vol] 90 mg/dL Normal 74-106 [facility] Comment on above: Performed By: #### L 100.0100, L500.2500 ####[facility] [address] [place], [address] Potassium [Moles/Vol] 4.1 mmol/L Normal 3.5-5.1 [facility] Comment on above: Performed By: #### L 100.0100, L500.2500 ####[facility] [address] [place], [address] Sodium [Moles/Vol] 136 mmol/L Normal 136-145 [facility] Comment on above: Performed By: #### L 100.0100, L500.2500 ####[facility] [address] [place], [address] Urea nitrogen [Mass/Vol] 28 mg/dL High 7-18 [facility] Comment on above: Performed By: #### L 100.0100, L500.2500 ####[facility] [address] [place], [address] CBC W/Diff, Automatedon 10-2 -2023 Absolute Lymph 1.36 X10 3/uL Normal 0.83-4.51 [facility] Comment on above: Performed By: #### L 100.0100, L500.2500 ####[facility] [address] [place], [address] Absolute Neut 5.5 X10 3/uL Normal 2.0-7.7 [facility] Comment on above: Performed By: #### L 100.0100, L500.2500 ####[facility] [address] [place], [address] Basophils/100 WBC (Bld) 0.7 % Normal 0-1 [facility] Comment on above: Performed By: #### L 100.0100, L500.2500 ####[facility] [address] [place], [address] Eosinophils/100 WBC (Bld) 0.3 % Normal 0-5 [facility] Comment on above: Performed By: #### L 100.0100, L500.2500 ####[facility] [address] [place], [address] Erythrocyte distribution width (RBC) [Ratio] 13.4 % Normal 11.6-14.6 [facility] Comment on above: Performed By: #### L 100.0100, L500.2500 ####[facility] [address] [place], [address] Hematocrit (Bld) [Volume fraction] 45.6 % Normal 40-54 [facility] Comment on above: Performed By: #### L 100.0100, L500.2500 ####[facility] [address] [place], [address] Hemoglobin (Bld) [Mass/Vol] 15.4 g/dL Normal 13.0-16.5 [facility] Comment on above: Performed By: #### L 100.0100, L500.2500 ####[facility] [address] [place], [address] IG% 0.800 Normal 0.0-0.9 [facility] Comment on above: Result Comment: IG% - Immature Granulocytes (promyelocytes, myelocytes andmetamyelocytes) > 1% indicates that a LEFT SHIFT is Present. Performed By: #### L 100.0100, L500.2500 ####[facility] [address] [place], [address] Lymphocytes/100 WBC (Bld) 18.0 % Low 19-41 [facility] Comment on above: Performed By: #### L 100.0100, L500.2500 ####[facility] [address] [place], [address] MCH (RBC) [Entitic mass] 33.6 pg High 27.0-32.0 [facility] Comment on above: Performed By: #### L 100.0100, L500.2500 ####[facility] [address] [place], [address] MCHC (RBC) [Mass/Vol] 33.8 g/dL Normal 32-36 [facility] Comment on above: Performed By: #### L 100.0100, L500.2500 ####[facility] [address] [place], [address] MCV (RBC) [Entitic vol] 99.3 fL High 80-94 [facility] Comment on above: Performed By: #### L 100.0100, L500.2500 ####[facility] [address] [place], [address] Monocytes/100 WBC (Bld) 7.0 % Normal 0-10 [facility] Comment on above: Performed By: #### L 100.0100, L500.2500 ####[facility] [address] [place], [address] Neutrophils/100 WBC (Bld) 73.2 % High 47-70 [facility] Comment on above: Performed By: #### L 100.0100, L500.2500 ####[facility] [address] [place], [address] Nucleated RBC (Bld) [#/Vol] 0 10*3/uL Normal 0-5 [facility] Comment on above: Performed By: #### L 100.0100, L500.2500 ####[facility] [address] [place], [address] Platelet mean volume (Bld) [Entitic vol] 10.1 fL Normal 6.2-12.0 [facility] Comment on above: Performed By: #### L 100.0100, L500.2500 ####[facility] [address] [place], [address] Platelets (Bld) [#/Vol] 296 10*3/uL Normal 150-450 [facility] Comment on above: Performed By: #### L 100.0100, L500.2500 ####[facility] [address] [place], [address] RBC (Bld) [#/Vol] 4.59 10*6/uL Low 4.6-6.2 [facility] Comment on above: Performed By: #### L 100.0100, L500.2500 ####[facility] [address] [place], [address] RDW SD 48.8 fl High 35.1-43.9 [facility] Comment on above: Performed By: #### L 100.0100, L500.2500 ####[facility] [address] [place], [address] WBC (Bld) [#/Vol] 7.6 10*3/uL Normal 4.4-11.0 [facility] Comment on above: Performed By: #### L 100.0100, L500.2500 ####[facility] [address] [place], [address] Basic Metabolic Profile (BMP )on 04-09-2024 BUN/CRE 15.3 RATIO Normal 10-20 [facility] Comment on above: Performed By: #### L 500.2500, L100.0100 ####[facility] [address] [place], [address] CA,Total 9.8 mg/dL Normal 8.5-10.1 [facility] Comment on above: Performed By: #### L 500.2500, L100.0100 ####[facility] [address] [place], [address] Chloride [Moles/Vol] 107 mmol/L Normal 98-107 [facility] Comment on above: Performed By: #### L 500.2500, L100.0100 ####[facility] [address] [place], [address] CO2 [Moles/Vol] 26.0 mmol/L Normal 21.0-32.0 [facility] Comment on above: Performed By: #### L 500.2500, L100.0100 ####[facility] [address] [place], [address] Creatinine [Mass/Vol] 1.44 mg/dL High 0.70-1.30 [facility] Comment on above: Result Comment: The validity of the calculated GFR GFRAA in patients over70 years has not been determined. Clinical correlation isessential. Performed By: #### L 500.2500, L100.0100 ####[facility] [address] [place], [address] ECRCL 40.61 ml/min Normal [facility] Comment on above: Performed By: #### L 500.2500, L100.0100 ####[facility] [address] [place], [address] EST GFR - AA 62 mL/min Normal >60 [facility] Comment on above: Result Comment: Afri can Austrian GFR Calc Performed By: #### L 500.2500, L100.0100 ####[facility] [address] [place], [address] GAP 4 Low 5-15 [facility] Comment on above: Performed By: #### L 500.2500, L100.0100 ####[facility] [address] [place], [address] GFR/1.73 sq M.predicted among non-blacks MDRD (S/P/Bld) [Vol rate/Area] 51 mL/min/{1.73_m2} Low >60 [facility] Comment on above: Result Comment: Non- GFR Calc Performed By: #### L 500.2500, L100.0100 ####[facility] [address] [place], [address] Glucose [Mass/Vol] 97 mg/dL Normal 74-106 [facility] Comment on above: Performed By: #### L 500.2500, L100.0100 ####[facility] [address] [place], [address] Potassium [Moles/Vol] 4.0 mmol/L Normal 3.5-5.1 [facility] Comment on above: Result Comment: Mode rate Hemolysis, Result may be falsely increased. Performed By: #### L 500.2500, L100.0100 ####[facility] [address] [place], [address] Sodium [Moles/Vol] 137 mmol/L Normal 136-145 [facility] Comment on above: Performed By: #### L 500.2500, L100.0100 ####[facility] [address] [place], [address] Urea nitrogen [Mass/Vol] 22 mg/dL High 7-18 [facility] Comment on above: Performed By: #### L 500.2500, L100.0100 ####[facility] [address] [place], [address] CBC W/Diff, Automatedon 10-2 Absolute Lymph 1.04 X10 3/uL Normal 0.83-4.51 [facility] Comment on above: Performed By: #### L 500.2500, L100.0100 ####[facility] [address] [place], [address] Absolute Neut 5.9 X10 3/uL Normal 2.0-7.7 [facility] Comment on above: Performed By: #### L 500.2500, L100.0100 ####[facility] [address] [place], [address] Basophils/100 WBC (Bld) 0.7 % Normal 0-1 [facility] Comment on above: Performed By: #### L 500.2500, L100.0100 ####[facility] [address] [place], [address] Eosinophils/100 WBC (Bld) 0.9 % Normal 0-5 [facility] Comment on above: Performed By: #### L 500.2500, L100.0100 ####[facility] [address] [place], [address] Erythrocyte distribution width (RBC) [Ratio] 13.2 % Normal 11.6-14.6 [facility] Comment on above: Performed By: #### L 500.2500, L100.0100 ####[facility] [address] [place], [address] Hematocrit (Bld) [Volume fraction] 45.7 % Normal 40-54 [facility] Comment on above: Performed By: #### L 500.2500, L100.0100 ####[facility] [address] [place], [address] Hemoglobin (Bld) [Mass/Vol] 15.0 g/dL Normal 13.0-16.5 [facility] Comment on above: Performed By: #### L 500.2500, L100.0100 ####[facility] [address] [place], [address] IG% 0.500 Normal 0.0-0.9 [facility] Comment on above: Result Comment: IG% - Immature Granulocytes (promyelocytes, myelocytes andmetamyelocytes) > 1% indicates that a LEFT SHIFT is Present. Performed By: #### L 500.2500, L100.0100 ####[facility] [address] [place], [address] Lymphocytes/100 WBC (Bld) 13.6 % Low 19-41 [facility] Comment on above: Performed By: #### L 500.2500, L100.0100 ####[facility] [address] [place], [address] MCH (RBC) [Entitic mass] 32.5 pg High 27.0-32.0 [facility] Comment on above: Performed By: #### L 500.2500, L100.0100 ####[facility] [address] [place], [address] MCHC (RBC) [Mass/Vol] 32.8 g/dL Normal 32-36 [facility] Comment on above: Performed By: #### L 500.2500, L100.0100 ####[facility] [address] [place], [address] MCV (RBC) [Entitic vol] 98.9 fL High 80-94 [facility] Comment on above: Performed By: #### L 500.2500, L100.0100 ####[facility] [address] [place], [address] Monocytes/100 WBC (Bld) 7.2 % Normal 0-10 [facility] Comment on above: Performed By: #### L 500.2500, L100.0100 ####[facility] [address] [place], [address] Neutrophils/100 WBC (Bld) 77.1 % High 47-70 [facility] Comment on above: Performed By: #### L 500.2500, L100.0100 ####[facility] [address] [place], [address] Nucleated RBC (Bld) [#/Vol] 0 10*3/uL Normal 0-5 [facility] Comment on above: Performed By: #### L 500.2500, L100.0100 ####[facility] [address] [place], [address] Platelet mean volume (Bld) [Entitic vol] 10.0 fL Normal 6.2-12.0 [facility] Comment on above: Performed By: #### L 500.2500, L100.0100 ####[facility] [address] [place], [address] Platelets (Bld) [#/Vol] 309 10*3/uL Normal 150-450 [facility] Comment on above: Performed By: #### L 500.2500, L100.0100 ####[facility] [address] [place], [address] RBC (Bld) [#/Vol] 4.62 10*6/uL Normal 4.6-6.2 [facility] Comment on above: Performed By: #### L 500.2500, L100.0100 ####[facility] [address] [place], [address] RDW SD 48.0 fl High 35.1-43.9 [facility] Comment on above: Performed By: #### L 500.2500, L100.0100 ####[facility] [address] [place], [address] WBC (Bld) [#/Vol] 7.7 10*3/uL Normal 4.4-11.0 [facility] Comment on above: Performed By: #### L 500.2500, L100.0100 ####[facility] [address] [place], [address] Basic Metabolic Profile (BMP )on 04-08-2024 BUN/CRE 10.4 RATIO Normal 10-20 [facility] Comment on above: Performed By: #### L 500.2500, L100.0100 ####[facility] [address] [place], [address] CA,Total 9.6 mg/dL Normal 8.5-10.1 [facility] Comment on above: Performed By: #### L 500.2500, L100.0100 ####[facility] [address] [place], [address] Chloride [Moles/Vol] 108 mmol/L High 98-107 [facility] Comment on above: Performed By: #### L 500.2500, L100.0100 ####[facility] [address] [place], [address] CO2 [Moles/Vol] 24.0 mmol/L Normal 21.0-32.0 [facility] Comment on above: Performed By: #### L 500.2500, L100.0100 ####[facility] [address] [place], [address] Creatinine [Mass/Vol] 1.15 mg/dL Normal 0.70-1.30 [facility] Comment on above: Result Comment: The validity of the calculated GFR GFRAA in patients over70 years has not been determined. Clinical correlation isessential. Performed By: #### L 500.2500, L100.0100 ####[facility] [address] [place], [address] ECRCL 50.86 ml/min Normal [facility] Comment on above: Performed By: #### L 500.2500, L100.0100 ####[facility] [address] [place], [address] EST GFR - AA 80 mL/min Normal >60 [facility] Comment on above: Result Comment: Afri can Austrian GFR Calc Performed By: #### L 500.2500, L100.0100 ####[facility] [address] [place], [address] GAP 9 Normal 5-15 [facility] Comment on above: Performed By: #### L 500.2500, L100.0100 ####[facility] [address] [place], [address] GFR/1.73 sq M.predicted among non-blacks MDRD (S/P/Bld) [Vol rate/Area] 66 mL/min/{1.73_m2} Normal >60 [facility] Comment on above: Result Comment: Non- GFR Calc Performed By: #### L 500.2500, L100.0100 ####[facility] [address] [place], [address] Glucose [Mass/Vol] 92 mg/dL Normal 74-106 [facility] Comment on above: Performed By: #### L 500.2500, L100.0100 ####[facility] [address] [place], [address] Potassium [Moles/Vol] 3.9 mmol/L Normal 3.5-5.1 [facility] Comment on above: Result Comment: Slig ht Hemolysis, Result may be falsely increased. Performed By: #### L 500.2500, L100.0100 ####[facility] [address] [place], [address] Sodium [Moles/Vol] 142 mmol/L Normal 136-145 [facility] Comment on above: Performed By: #### L 500.2500, L100.0100 ####[facility] [address] [place], [address] Urea nitrogen [Mass/Vol] 12 mg/dL Normal 7-18 [facility] Comment on above: Performed By: #### L 500.2500, L100.0100 ####[facility] [address] [place], [address] CBC W/Diff, Automatedon 10-2 Absolute Lymph 1.20 X10 3/uL Normal 0.83-4.51 [facility] Comment on above: Performed By: #### L 500.2500, L100.0100 ####[facility] [address] [place], [address] Absolute Neut 4.1 X10 3/uL Normal 2.0-7.7 [facility] Comment on above: Performed By: #### L 500.2500, L100.0100 ####[facility] [address] [place], [address] Basophils/100 WBC (Bld) 1.3 % High 0-1 [facility] Comment on above: Performed By: #### L 500.2500, L100.0100 ####[facility] [address] [place], [address] Eosinophils/100 WBC (Bld) 2.0 % Normal 0-5 [facility] Comment on above: Performed By: #### L 500.2500, L100.0100 ####[facility] [address] [place], [address] Erythrocyte distribution width (RBC) [Ratio] 13.0 % Normal 11.6-14.6 [facility] Comment on above: Performed By: #### L 500.2500, L100.0100 ####[facility] [address] [place], [address] Hematocrit (Bld) [Volume fraction] 44.0 % Normal 40-54 [facility] Comment on above: Performed By: #### L 500.2500, L100.0100 ####[facility] [address] [place], [address] Hemoglobin (Bld) [Mass/Vol] 14.6 g/dL Normal 13.0-16.5 [facility] Comment on above: Performed By: #### L 500.2500, L100.0100 ####[facility] [address] [place], [address] IG% 0.300 Normal 0.0-0.9 [facility] Comment on above: Result Comment: IG% - Immature Granulocytes (promyelocytes, myelocytes andmetamyelocytes) > 1% indicates that a LEFT SHIFT is Present. Performed By: #### L 500.2500, L100.0100 ####[facility] [address] [place], [address] Lymphocytes/100 WBC (Bld) 20.0 % Normal 19-41 [facility] Comment on above: Performed By: #### L 500.2500, L100.0100 ####[facility] [address] [place], [address] MCH (RBC) [Entitic mass] 32.7 pg High 27.0-32.0 [facility] Comment on above: Performed By: #### L 500.2500, L100.0100 ####[facility] [address] [place], [address] MCHC (RBC) [Mass/Vol] 33.2 g/dL Normal 32-36 [facility] Comment on above: Performed By: #### L 500.2500, L100.0100 ####[facility] [address] [place], [address] MCV (RBC) [Entitic vol] 98.4 fL High 80-94 [facility] Comment on above: Performed By: #### L 500.2500, L100.0100 ####[facility] [address] [place], [address] Monocytes/100 WBC (Bld) 8.7 % Normal 0-10 [facility] Comment on above: Performed By: #### L 500.2500, L100.0100 ####[facility] [address] [place], [address] Neutrophils/100 WBC (Bld) 67.7 % Normal 47-70 [facility] Comment on above: Performed By: #### L 500.2500, L100.0100 ####[facility] [address] [place], [address] Nucleated RBC (Bld) [#/Vol] 0 10*3/uL Normal 0-5 [facility] Comment on above: Performed By: #### L 500.2500, L100.0100 ####[facility] [address] [place], [address] Platelet mean volume (Bld) [Entitic vol] 9.9 fL Normal 6.2-12.0 [facility] Comment on above: Performed By: #### L 500.2500, L100.0100 ####[facility] [address] [place], [address] Platelets (Bld) [#/Vol] 270 10*3/uL Normal 150-450 [facility] Comment on above: Performed By: #### L 500.2500, L100.0100 ####[facility] [address] [place], [address] RBC (Bld) [#/Vol] 4.47 10*6/uL Low 4.6-6.2 [facility] Comment on above: Performed By: #### L 500.2500, L100.0100 ####[facility] [address] [place], [address] RDW SD 47.0 fl High 35.1-43.9 [facility] Comment on above: Performed By: #### L 500.2500, L100.0100 ####[facility] [address] [place], [address] WBC (Bld) [#/Vol] 6.0 10*3/uL Normal 4.4-11.0 [facility] Comment on above: Performed By: #### L 500.2500, L100.0100 ####[facility] [address] [place], [address] Vitamin D,25 Hydroxyon 04-08 Vitamin D 25-OH 35.4 ng/mL Normal [facility] Comment on above: Result Comment: Teri min D 25(OH) Status Range Deficiency <20 ng/mL (50nmol/L) Insufficiency 20 - 30 ng/mL (50 - 75 nmol/L) Sufficiency 30 - 100 ng/mL (75 - 250 nmol/L) Toxicity >100 ng/mL (>250 nmol/L) Performed By: #### L 506.1000 ####[facility] [address] [place], [address] Basic Metabolic Profile (BMP )on 04-07-2024 BUN/CRE 16.2 RATIO Normal 04-07 [facility] Comment on above: Performed By: #### L 100.0100, L501.9520, L500.2500 ####[facility] [address] [place], [address] CA,Total 9.1 mg/dL Normal 8.5-10.1 [facility] Comment on above: Performed By: #### L 100.0100, L501.9520, L500.2500 ####[facility] [address] [place], [address] Chloride [Moles/Vol] 106 mmol/L Normal 98-107 [facility] Comment on above: Performed By: #### L 100.0100, L501.9520, L500.2500 ####[facility] [address] [place], [address] CO2 [Moles/Vol] 25.0 mmol/L Normal 21.0-32.0 [facility] Comment on above: Performed By: #### L 100.0100, L501.9520, L500.2500 ####[facility] [address] [place], [address] Creatinine [Mass/Vol] 1.05 mg/dL Normal 0.70-1.30 [facility] Comment on above: Result Comment: The validity of the calculated GFR GFRAA in patients over70 years has not been determined. Clinical correlation isessential. Performed By: #### L 100.0100, L501.9520, L500.2500 ####[facility] [address] [place], [address] ECRCL 55.70 ml/min Normal [facility] Comment on above: Performed By: #### L 100.0100, L501.9520, L500.2500 ####[facility] [address] [place], [address] EST GFR - AA 89 mL/min Normal >60 [facility] Comment on above: Result Comment: Afri can Austrian GFR Calc Performed By: #### L 100.0100, L501.9520, L500.2500 ####[facility] [address] [place], [address] GAP 4 Low 5-15 [facility] Comment on above: Performed By: #### L 100.0100, L501.9520, L500.2500 ####[facility] [address] [place], [address] GFR/1.73 sq M.predicted among non-blacks MDRD (S/P/Bld) [Vol rate/Area] 73 mL/min/{1.73_m2} Normal >60 [facility] Comment on above: Result Comment: Non- GFR Calc Performed By: #### L 100.0100, L501.9520, L500.2500 ####[facility] [address] [place], [address] Glucose [Mass/Vol] 95 mg/dL Normal 74-106 [facility] Comment on above: Performed By: #### L 100.0100, L501.9520, L500.2500 ####[facility] [address] [place], [address] Potassium [Moles/Vol] 3.6 mmol/L Normal 3.5-5.1 [facility] Comment on above: Performed By: #### L 100.0100, L501.9520, L500.2500 ####[facility] [address] [place], [address] Sodium [Moles/Vol] 135 mmol/L Low 136-145 [facility] Comment on above: Performed By: #### L 100.0100, L501.9520, L500.2500 ####[facility] [address] [place], [address] Urea nitrogen [Mass/Vol] 17 mg/dL Normal 7-18 [facility] Comment on above: Performed By: #### L 100.0100, L501.9520, L500.2500 ####[facility] [address] [place], [address] CBC W/Diff, Automatedon 10-2 0-4 Absolute Lymph 1.44 X10 3/uL Normal 0.83-4.51 [facility] Comment on above: Performed By: #### L 100.0100, L501.9520, L500.2500 ####[facility] [address] [place], [address] Absolute Neut 3.8 X10 3/uL Normal 2.0-7.7 [facility] Comment on above: Performed By: #### L 100.0100, L501.9520, L500.2500 ####[facility] [address] [place], [address] Basophils/100 WBC (Bld) 1.5 % High 0-1 [facility] Comment on above: Performed By: #### L 100.0100, L501.9520, L500.2500 ####[facility] [address] [place], [address] Eosinophils/100 WBC (Bld) 1.5 % Normal 0-5 [facility] Comment on above: Performed By: #### L 100.0100, L501.9520, L500.2500 ####[facility] [address] [place], [address] Erythrocyte distribution width (RBC) [Ratio] 12.8 % Normal 11.6-14.6 [facility] Comment on above: Performed By: #### L 100.0100, L501.9520, L500.2500 ####[facility] [address] [place], [address] Hematocrit (Bld) [Volume fraction] 42.4 % Normal 40-54 [facility] Comment on above: Performed By: #### L 100.0100, L501.9520, L500.2500 ####[facility] [address] [place], [address] Hemoglobin (Bld) [Mass/Vol] 14.2 g/dL Normal 13.0-16.5 [facility] Comment on above: Performed By: #### L 100.0100, L501.9520, L500.2500 ####[facility] [address] [place], [address] IG% 0.300 Normal 0.0-0.9 [facility] Comment on above: Result Comment: IG% - Immature Granulocytes (promyelocytes, myelocytes andmetamyelocytes) > 1% indicates that a LEFT SHIFT is Present. Performed By: #### L 100.0100, L501.9520, L500.2500 ####[facility] [address] [place], [address] Lymphocytes/100 WBC (Bld) 24.4 % Normal 19-41 [facility] Comment on above: Performed By: #### L 100.0100, L501.9520, L500.2500 ####[facility] [address] [place], [address] MCH (RBC) [Entitic mass] 32.8 pg High 27.0-32.0 [facility] Comment on above: Performed By: #### L 100.0100, L501.9520, L500.2500 ####[facility] [address] [place], [address] MCHC (RBC) [Mass/Vol] 33.5 g/dL Normal 32-36 [facility] Comment on above: Performed By: #### L 100.0100, L501.9520, L500.2500 ####[facility] [address] [place], [address] MCV (RBC) [Entitic vol] 97.9 fL High 80-94 [facility] Comment on above: Performed By: #### L 100.0100, L501.9520, L500.2500 ####[facility] [address] [place], [address] Monocytes/100 WBC (Bld) 7.8 % Normal 0-10 [facility] Comment on above: Performed By: #### L 100.0100, L501.9520, L500.2500 ####[facility] [address] [place], [address] Neutrophils/100 WBC (Bld) 64.5 % Normal 47-70 [facility] Comment on above: Performed By: #### L 100.0100, L501.9520, L500.2500 ####[facility] [address] [place], [address] Nucleated RBC (Bld) [#/Vol] 0 10*3/uL Normal 0-5 [facility] Comment on above: Performed By: #### L 100.0100, L501.9520, L500.2500 ####[facility] [address] [place], [address] Platelet mean volume (Bld) [Entitic vol] 9.8 fL Normal 6.2-12.0 [facility] Comment on above: Performed By: #### L 100.0100, L501.9520, L500.2500 ####[facility] [address] [place], [address] Platelets (Bld) [#/Vol] 292 10*3/uL Normal 150-450 [facility] Comment on above: Performed By: #### L 100.0100, L501.9520, L500.2500 ####[facility] [address] [place], [address] RBC (Bld) [#/Vol] 4.33 10*6/uL Low 4.6-6.2 [facility] Comment on above: Performed By: #### L 100.0100, L501.9520, L500.2500 ####[facility] [address] [place], [address] RDW SD 46.1 fl High 35.1-43.9 [facility] Comment on above: Performed By: #### L 100.0100, L501.9520, L500.2500 ####[facility] [address] [place], [address] WBC (Bld) [#/Vol] 5.9 10*3/uL Normal 4.4-11.0 [facility] Comment on above: Performed By: #### L 100.0100, L501.9520, L500.2500 ####[facility] [address] [place], [address] Thyroid Stim Hormone (TSH)on 10-20-2024 TSH 1.730 uIU/mL Normal 0.358-3.740 [facility] Comment on above: Performed By: #### L 100.0100, L501.9520, L500.2500 ####[facility] [address] [place], [address] 12 Lead EKGon 04-06-2024 12 Lead EKG Normal [facility] Basic Metabolic Profile (BMP )on 04-06-2024 BUN/CRE 16.2 RATIO Normal 04-07 [facility] Comment on above: Order Comment: 'TROP ' Serial specimen #1, #2 or #3: 1 Performed By: #### L 500.2500, L100.0100, L501.4020 ####[facility] [address] [place], [address] CA,Total 10.0 mg/dL Normal 8.5-10.1 [facility] Comment on above: Order Comment: 'TROP ' Serial specimen #1, #2 or #3: 1 Performed By: #### L 500.2500, L100.0100, L501.4020 ####[facility] [address] [place], [address] Chloride [Moles/Vol] 104 mmol/L Normal 98-107 [facility] Comment on above: Order Comment: 'TROP ' Serial specimen #1, #2 or #3: 1 Performed By: #### L 500.2500, L100.0100, L501.4020 ####[facility] [address] [place], [address] CO2 [Moles/Vol] 31.0 mmol/L Normal 21.0-32.0 [facility] Comment on above: Order Comment: 'TROP ' Serial specimen #1, #2 or #3: 1 Performed By: #### L 500.2500, L100.0100, L501.4020 ####[facility] [address] [place], [address] Creatinine [Mass/Vol] 1.36 mg/dL High 0.70-1.30 [facility] Comment on above: Order Comment: 'TROP ' Serial specimen #1, #2 or #3: 1 Result Comment: The validity of the calculated GFR GFRAA in patients over70 years has not been determined. Clinical correlation isessential. Performed By: #### L 500.2500, L100.0100, L501.4020 ####[facility] [address] [place], [address] ECRCL 42.94 ml/min Normal [facility] Comment on above: Order Comment: 'TROP ' Serial specimen #1, #2 or #3: 1 Performed By: #### L 500.2500, L100.0100, L501.4020 ####[facility] [address] [place], [address] EST GFR - AA 66 mL/min Normal >60 [facility] Comment on above: Order Comment: 'TROP ' Serial specimen #1, #2 or #3: 1 Result Comment: Afri can Austrian GFR Calc Performed By: #### L 500.2500, L100.0100, L501.4020 ####[facility] [address] [place], [address] GAP 3 Low 5-15 [facility] Comment on above: Order Comment: 'TROP ' Serial specimen #1, #2 or #3: 1 Performed By: #### L 500.2500, L100.0100, L501.4020 ####[facility] [address] [place], [address] GFR/1.73 sq M.predicted among non-blacks MDRD (S/P/Bld) [Vol rate/Area] 54 mL/min/{1.73_m2} Low >60 [facility] Comment on above: Order Comment: 'TROP ' Serial specimen #1, #2 or #3: 1 Result Comment: Non- GFR Calc Performed By: #### L 500.2500, L100.0100, L501.4020 ####[facility] [address] [place], [address] Glucose [Mass/Vol] 99 mg/dL Normal 74-106 [facility] Comment on above: Order Comment: 'TROP ' Serial specimen #1, #2 or #3: 1 Performed By: #### L 500.2500, L100.0100, L501.4020 ####[facility] [address] [place], [address] Potassium [Moles/Vol] 4.1 mmol/L Normal 3.5-5.1 [facility] Comment on above: Order Comment: 'TROP ' Serial specimen #1, #2 or #3: 1 Performed By: #### L 500.2500, L100.0100, L501.4020 ####[facility] [address] [place], [address] Sodium [Moles/Vol] 138 mmol/L Normal 136-145 [facility] Comment on above: Order Comment: 'TROP ' Serial specimen #1, #2 or #3: 1 Performed By: #### L 500.2500, L100.0100, L501.4020 ####[facility] [address] [place], [address] Urea nitrogen [Mass/Vol] 22 mg/dL High 7-18 [facility] Comment on above: Order Comment: 'TROP ' Serial specimen #1, #2 or #3: 1 Performed By: #### L 500.2500, L100.0100, L501.4020 ####[facility] [address] [place], [address] Brain/Head without Contrasto n - Brain/Head without Contrast Normal [facility] CBC W/Diff, Automatedon 10- Absolute Lymph 1.59 X10 3/uL Normal 0.83-4.51 [facility] Comment on above: Performed By: #### L 500.2500, L100.0100, L501.4020 ####[facility] [address] [place], [address] Absolute Neut 4.3 X10 3/uL Normal 2.0-7.7 [facility] Comment on above: Performed By: #### L 500.2500, L100.0100, L501.4020 ####[facility] [address] [place], [address] Basophils/100 WBC (Bld) 1.1 % High 0-1 [facility] Comment on above: Performed By: #### L 500.2500, L100.0100, L501.4020 ####[facility] [address] [place], [address] Eosinophils/100 WBC (Bld) 0.9 % Normal 0-5 [facility] Comment on above: Performed By: #### L 500.2500, L100.0100, L501.4020 ####[facility] [address] [place], [address] Erythrocyte distribution width (RBC) [Ratio] 13.0 % Normal 11.6-14.6 [facility] Comment on above: Performed By: #### L 500.2500, L100.0100, L501.4020 ####[facility] [address] [place], [address] Hematocrit (Bld) [Volume fraction] 49.3 % Normal 40-54 [facility] Comment on above: Performed By: #### L 500.2500, L100.0100, L501.4020 ####[facility] [address] [place], [address] Hemoglobin (Bld) [Mass/Vol] 17.0 g/dL High 13.0-16.5 [facility] Comment on above: Performed By: #### L 500.2500, L100.0100, L501.4020 ####[facility] [address] [place], [address] IG% 0.500 Normal 0.0-0.9 [facility] Comment on above: Result Comment: IG% - Immature Granulocytes (promyelocytes, myelocytes andmetamyelocytes) > 1% indicates that a LEFT SHIFT is Present. Performed By: #### L 500.2500, L100.0100, L501.4020 ####[facility] [address] [place], [address] Lymphocytes/100 WBC (Bld) 24.3 % Normal 19-41 [facility] Comment on above: Performed By: #### L 500.2500, L100.0100, L501.4020 ####[facility] [address] [place], [address] MCH (RBC) [Entitic mass] 33.5 pg High 27.0-32.0 [facility] Comment on above: Performed By: #### L 500.2500, L100.0100, L501.4020 ####[facility] [address] [place], [address] MCHC (RBC) [Mass/Vol] 34.5 g/dL Normal 32-36 [facility] Comment on above: Performed By: #### L 500.2500, L100.0100, L501.4020 ####[facility] [address] [place], [address] MCV (RBC) [Entitic vol] 97.0 fL High 80-94 [facility] Comment on above: Performed By: #### L 500.2500, L100.0100, L501.4020 ####[facility] [address] [place], [address] Monocytes/100 WBC (Bld) 6.9 % Normal 0-10 [facility] Comment on above: Performed By: #### L 500.2500, L100.0100, L501.4020 ####[facility] [address] [place], [address] Neutrophils/100 WBC (Bld) 66.3 % Normal 47-70 [facility] Comment on above: Performed By: #### L 500.2500, L100.0100, L501.4020 ####[facility] [address] [place], [address] Nucleated RBC (Bld) [#/Vol] 0 10*3/uL Normal 0-5 [facility] Comment on above: Performed By: #### L 500.2500, L100.0100, L501.4020 ####[facility] [address] [place], [address] Platelet mean volume (Bld) [Entitic vol] 10.2 fL Normal 6.2-12.0 [facility] Comment on above: Performed By: #### L 500.2500, L100.0100, L501.4020 ####[facility] [address] [place], [address] Platelets (Bld) [#/Vol] 329 10*3/uL Normal 150-450 [facility] Comment on above: Performed By: #### L 500.2500, L100.0100, L501.4020 ####[facility] [address] [place], [address] RBC (Bld) [#/Vol] 5.08 10*6/uL Normal 4.6-6.2 [facility] Comment on above: Performed By: #### L 500.2500, L100.0100, L501.4020 ####[facility] [address] [place], [address] RDW SD 46.7 fl High 35.1-43.9 [facility] Comment on above: Performed By: #### L 500.2500, L100.0100, L501.4020 ####[facility] [address] [place], [address] WBC (Bld) [#/Vol] 6.5 10*3/uL Normal 4.4-11.0 [facility] Comment on above: Performed By: #### L 500.2500, L100.0100, L501.4020 ####[facility] [address] [place], [address] Chest 1 View (Portable)on Chest 1 View (Portable) Normal [facility] Echo Completeon 04-06-2024 Echo Complete Normal [facility] Emergency Department Summary on 04-06-2024 Emergency Department Summary Normal [facility] H AND P Exam - Hospitaliston 04-06-2024 H&P Exam - Hospitalist Normal [facility] L501.4020on 04-06-2024 TROPONIN-I HS 18 pg/mL Normal 3.0-78.0 [facility] Comment on above: Order Comment: 'TROP ' Serial specimen #1, #2 or #3: 2 Result Comment: Plea se Note: New Test Units and Gender Specific Reference Ranges. For more information see Policy Stat Procedure [place] High Sensitivity Troponin (TNIH) and attachments. Performed By: #### L 501.4020 ####[facility] [address] [place], [address] TROPONIN-I HS 9 pg/mL Normal 3.0-78.0 [facility] Comment on above: Order Comment: 'TROP ' Serial specimen #1, #2 or #3: 1 Result Comment: Plea se Note: New Test Units and Gender Specific Reference Ranges. For more information see Policy Stat Procedure [place] High Sensitivity Troponin (TNIH) and attachments. Performed By: #### L 500.2500, L100.0100, L501.4020 ####[facility] [address] [place], [address] Lumbar Spine 2 or 3 Viewson 04-06-2024 Lumbar Spine 2 or 3 Views Normal [facility] Magnesiumon 04-06-2024 Magnesium [Mass/Vol] 2.3 mg/dL Normal 1.6-2.6 [facility] Comment on above: Performed By: #### L 501.5200 ####[facility] [address] [place], [address] Spine Cervical without Contr ason 04-06-2024 Spine Cervical without Contras Normal [facility] Thoracic Spine 2 Viewson Thoracic Spine 2 Views Normal [facility] Urinalysis, Completeon 04-06 EPI,SQUAMOUS 5-10 SEEN Normal 0-5 [facility] Comment on above: Order Comment: CLEAN CATCH Performed By: #### L 400.0001 ####[facility] [address] [place], [address] BACTERIA 0 SEEN Normal None Seen [facility] Comment on above: Order Comment: CLEAN CATCH Performed By: #### L 400.0001 ####[facility] [address] [place], [address] Mucus Ql (Urine sed) 0 SEEN Normal [facility] Comment on above: Order Comment: CLEAN CATCH Performed By: #### L 400.0001 ####[facility] [address] [place], [address] RBC 0 SEEN Normal 0-5 [facility] Comment on above: Order Comment: CLEAN CATCH Performed By: #### L 400.0001 ####[facility] [address] [place], [address] WBC 0 SEEN Normal 0-5 [facility] Comment on above: Order Comment: CLEAN CATCH Performed By: #### L 400.0001 ####[facility] [address] [place], [address] UA DIP, URINE (POC)on 2023 BILIRUBIN UA (POCT) Negative Negative [facility] CLARITY UA (POCT) Cloudy [facility] COLOR UA (POCT) Yellow [facility] GLUCOSE UA (POCT) Negative Negative mg/dL [facility] Hemoglobin Ql (U) Negative Negative [facility] Interpretation and review of laboratory results Abnormal [facility] KETONE UA (POCT) Trace Negative mg/dL [facility] LEUKOCYTES UA (POCT) Trace Abnormal Negative [facility] NITRITE UA (POCT) Positive Abnormal Negative [facility] PH UA (POCT) 6.0 4.5 - 8.0 [facility] Protein Ql (U) 100 mg/dL Abnormal Negative [facility] SPECIFIC GRAVITY UA (POCT) 1.025 1.005 - 1.030 [facility] UROBILINOGEN UA (POCT) 0.2 Malaika l E.U./dL [facility] Location:[facility], [address] [place] [address] Rd, [place], [place], [id number] [place] [address] POINT OF CARE [facility] Alcohol, Blood (Medical)-Ser umon 02-20-2024 SERUM ETOH < 3.0 Normal [facility] Comment on above: Result Comment: The serum:whole blood ethanol ratio is approximately 1.14and varies slightly with hematocrit.Medical Alcohol reference interval and critical value innon-tolerant individuals; 50 - 100 Impairment 100 Intoxication 100 - 250 Severe Poisoning 250 - 400 Deep/possible fatal coma Performed By: #### L 501.2450, L100.0500, L500.2500, L501.5425, L501.9100 ####[facility] [address] [place], [place], [id number] Basic Metabolic Profile (BMP )on 02-20-2024 BUN/CRE 13.3 RATIO Normal 10-20 [facility] Comment on above: Order Comment: 1Y Performed By: #### L 501.2450, L100.0500, L500.2500, L501.5425, L501.9100 ####[facility] [address] [place], [place], [id number] CA,Total 10.7 mg/dL High 8.5-10.1 [facility] Comment on above: Order Comment: 1Y Performed By: #### L 501.2450, L100.0500, L500.2500, L501.5425, L501.9100 ####[facility] [address] [place], [address] Chloride [Moles/Vol] 98 mmol/L Normal 98-107 [facility] Comment on above: Order Comment: 1Y Performed By: #### L 501.2450, L100.0500, L500.2500, L501.5425, L501.9100 ####[facility] [address] [place], [address] CO2 [Moles/Vol] 30.0 mmol/L Normal 21.0-32.0 [facility] Comment on above: Order Comment: 1Y Performed By: #### L 501.2450, L100.0500, L500.2500, L501.5425, L501.9100 ####[facility] [address] [place], [address] Creatinine [Mass/Vol] 1.35 mg/dL High 0.70-1.30 [facility] Comment on above: Order Comment: 1Y Result Comment: The validity of the calculated GFR GFRAA in patients over70 years has not been determined. Clinical correlation isessential. Performed By: #### L 501.2450, L100.0500, L500.2500, L501.5425, L501.9100 ####[facility] [address] [place], [address] EST GFR - AA 66 mL/min Normal >60 [facility] Comment on above: Order Comment: 1Y Result Comment: Afri can [place] GFR Calc Performed By: #### L 501.2450, L100.0500, L500.2500, L501.5425, L501.9100 ####[facility] [address] [place], [address] GAP 9 Normal 5-15 [facility] Comment on above: Order Comment: 1Y Performed By: #### L 501.2450, L100.0500, L500.2500, L501.5425, L501.9100 ####[facility] [address] [place], [address] GFR/1.73 sq M.predicted among non-blacks MDRD (S/P/Bld) [Vol rate/Area] 55 mL/min/{1.73_m2} Low >60 [facility] Comment on above: Order Comment: 1Y Result Comment: Non- GFR Calc Performed By: #### L 501.2450, L100.0500, L500.2500, L501.5425, L501.9100 ####[facility] [address] [place], [address] Glucose [Mass/Vol] 84 mg/dL Normal 74-106 [facility] Comment on above: Order Comment: 1Y Performed By: #### L 501.2450, L100.0500, L500.2500, L501.5425, L501.9100 ####[facility] [address] [place], [address] Potassium [Moles/Vol] 4.3 mmol/L Normal 3.5-5.1 [facility] Comment on above: Order Comment: 1Y Performed By: #### L 501.2450, L100.0500, L500.2500, L501.5425, L501.9100 ####[facility] [address] [place], [address] Sodium [Moles/Vol] 137 mmol/L Normal 136-145 [facility] Comment on above: Order Comment: 1Y Performed By: #### L 501.2450, L100.0500, L500.2500, L501.5425, L501.9100 ####[facility] [address] [place], [address] Urea nitrogen [Mass/Vol] 18 mg/dL Normal 7-18 [facility] Comment on above: Order Comment: 1Y Performed By: #### L 501.2450, L100.0500, L500.2500, L501.5425, L501.9100 ####[facility] [address] [place], [address] Bedside Glucoseon 02-20-2024 FINGERSTICK GLU 83 mg/dL Normal 74-106 [facility] Comment on above: Result Comment: RONA LO OF PATIENT CARE PER NURSING PROTOCOL Performed By: #### L 501.080 ####[facility] [address] [place], [address] Brain/Head without Contrasto n 02-20-2024 Brain/Head without Contrast Normal [facility] CBC-Complete Blood Cnt No Di ffon 02-20-2024 Erythrocyte distribution width (RBC) [Ratio] 13.2 % Normal 11.6-14.6 [facility] Comment on above: Performed By: #### L 501.2450, L100.0500, L500.2500, L501.5425, L501.9100 ####[facility] [address] [place], [address] Hematocrit (Bld) [Volume fraction] 51.8 % Normal 40-54 [facility] Comment on above: Performed By: #### L 501.2450, L100.0500, L500.2500, L501.5425, L501.9100 ####[facility] [address] [place], [address] Hemoglobin (Bld) [Mass/Vol] 17.1 g/dL High 13.0-16.5 [facility] Comment on above: Performed By: #### L 501.2450, L100.0500, L500.2500, L501.5425, L501.9100 ####[facility] [address] [place], [address] MCH (RBC) [Entitic mass] 32.0 pg Normal 27.0-32.0 [facility] Comment on above: Performed By: #### L 501.2450, L100.0500, L500.2500, L501.5425, L501.9100 ####[facility] [address] [place], [address] MCHC (RBC) [Mass/Vol] 33.0 g/dL Normal 32-36 [facility] Comment on above: Performed By: #### L 501.2450, L100.0500, L500.2500, L501.5425, L501.9100 ####[facility] [address] [place], [address] MCV (RBC) [Entitic vol] 96.8 fL High 80-94 [facility] Comment on above: Performed By: #### L 501.2450, L100.0500, L500.2500, L501.5425, L501.9100 ####[facility] [address] [place], [address] Platelet mean volume (Bld) [Entitic vol] 9.8 fL Normal 6.2-12.0 [facility] Comment on above: Performed By: #### L 501.2450, L100.0500, L500.2500, L501.5425, L501.9100 ####[facility] [address] [place], [address] Platelets (Bld) [#/Vol] 307 10*3/uL Normal 150-450 [facility] Comment on above: Performed By: #### L 501.2450, L100.0500, L500.2500, L501.5425, L501.9100 ####[facility] [address] [place], [address] RBC (Bld) [#/Vol] 5.35 10*6/uL Normal 4.6-6.2 [facility] Comment on above: Performed By: #### L 501.2450, L100.0500, L500.2500, L501.5425, L501.9100 ####[facility] [address] [place], [address] RDW SD 47.1 fl High 35.1-43.9 [facility] Comment on above: Performed By: #### L 501.2450, L100.0500, L500.2500, L501.5425, L501.9100 ####[facility] [address] [place], [address] WBC (Bld) [#/Vol] 6.6 10*3/uL Normal 4.4-11.0 [facility] Comment on above: Performed By: #### L 501.2450, L100.0500, L500.2500, L501.5425, L501.9100 ####[facility] [address] [place], [address] Chest 1 View (Portable)on Chest 1 View (Portable) Normal [facility] Summary on 02-20-2024 Emergency Department Summary Normal [facility] Femur Min 2 Viewson 02-20-20 24 Femur Min 2 Views Normal [facility] Knee 1 or 2 Viewson 02-20-20 24 Knee 1 or 2 Views Normal [facility] L501.4020on 02-20-2024 TROPONIN-I HS 18 pg/mL Normal 3.0-78.0 [facility] Comment on above: Result Comment: Plea se Note: New Test Units and Gender Specific Reference Ranges. For more information see Policy Stat Procedure [place] High Sensitivity Troponin (TNIH) and attachments. Performed By: #### L 501.4020 ####[facility] [address] [place], [address] L501.5425on 02-20-2024 TROPONIN-I HS 14 pg/mL Normal 3.0-78.0 [facility] Comment on above: Order Comment: 1Y Result Comment: Plea se Note: New Test Units and Gender Specific Reference Ranges. For more information see Policy Stat Procedure [place] High Sensitivity Troponin (TNIH) and attachments. Performed By: #### L 501.2450, L100.0500, L500.2500, L501.5425, L501.9100 ####[facility] [address] [place], [address] Lipaseon 02-20-2024 Lipase [Catalytic activity/Vol] 23 U/L Normal 13-75 [facility] Comment on above: Order Comment: 1Y Result Comment: Brant gregorio note:LIPASE revised reference range effective 22.New Lipase methodology. Expected to produce lower valuesthan the previous assay method.NEW Reference Range: 13 - 75 U/L Performed By: #### L 501.2450, L100.0500, L500.2500, L501.5425, L501.9100 ####[facility] [address] [place], [address] Spine Cervical without Contr ason 02-20-2024 Spine Cervical without Contras Normal [facility] Spine Thoracic without Contr ason 02-20-2024 Spine Thoracic without Contras Normal [facility] Urinalysis, Completeon 02-19 EPI,RENAL 0-5 SEEN Normal 0-5 [facility] Comment on above: Order Comment: MEHREEN CTOR TO SPECIFY Performed By: #### L 400.0001 ####[facility] [address] [place], [address] EPI,SQUAMOUS 0-5 SEEN Normal 0-5 [facility] Comment on above: Order Comment: MEHREEN CTOR TO SPECIFY Performed By: #### L 400.0001 ####[facility] [address] [place], [address] BACTERIA 3+ /hpf Normal None Seen [facility] Comment on above: Order Comment: MEHREEN CTOR TO SPECIFY Performed By: #### L 400.0001 ####[facility] [address] [place], [address] WBC 0-5 SEEN Normal 0-5 [facility] Comment on above: Order Comment: COLLE CTOR TO SPECIFY Performed By: #### L 400.0001 ####[facility] [address] [place], [address] Mucus Ql (Urine sed) 0 SEEN Normal [facility] Comment on above: Order Comment: MEHREEN CTOR TO SPECIFY Performed By: #### L 400.0001 ####[facility] [address] [place], [address] RBC 0 SEEN Normal 0-5 [facility] Comment on above: Order Comment: MEHREEN CTOR TO SPECIFY Performed By: #### L 400.0001 ####[facility] [address] [place] [address] Urine Drug Screen (VISTA)on 02-20-2024 AMPHETAMINES Negative Normal <1000 ng/mL [facility] Comment on above: Performed By: #### L 505.5000 ####[facility] [address] [place] [address] BARBITIURATES Negative Normal < 200 ng/mL [facility] Comment on above: Performed By: #### L 505.5000 ####[facility] [address] [place] [address] BENZODIAZIPINE Negative Normal < 200 ng/mL [facility] Comment on above: Performed By: #### L 505.5000 ####[facility] [address] [place] [address] COCAINE Negative Normal < 300 ng/mL [facility] Comment on above: Performed By: #### L 505.5000 ####[facility] [address] [place] [address] ECSTACY Negative Normal < 500 ng/mL [facility] Comment on above: Performed By: #### L 505.5000 ####[facility] [address] [place] [address] METHADONE Negative Normal < 300 ng/mL [facility] Comment on above: Performed By: #### L 505.5000 ####[facility] [address] [place], [address] OPIATES Negative Normal < 300 ng/mL [facility] Comment on above: Performed By: #### L 505.5000 ####[facility] [address] [place], [address] PCP Negative Normal < 25 ng/mL [facility] Comment on above: Performed By: #### L 505.5000 ####[facility] [address] [place], [address] THC Negative Normal < 50 ng/mL [facility] Comment on above: Performed By: #### L 505.5000 ####[facility] [address] [place], [address] VISTA UDS PH 4 Normal [facility] Comment on above: Performed By: #### L 505.5000 ####[facility] [address] [place], [address] Emergency Department Summary on 01-03-2024 Emergency Department Summary Normal [facility] Tibia Fibula 2 Viewson 01-02 Tibia Fibula 2 Views Normal [facility] 12 Lead EKGon 12-08-2023 12 Lead EKG Normal [facility] CBC W/Diff, Automatedon 11-18 Absolute Lymph 0.96 X10 3/uL Normal 0.83-4.51 [facility] Comment on above: Performed By: #### L 500.4050, L100.0100 ####[facility] [address] [place], [address] Absolute Neut 4.4 X10 3/uL Normal 2.0-7.7 [facility] Comment on above: Performed By: #### L 500.4050, L100.0100 ####[facility] [address] [place], [address] Basophils/100 WBC (Bld) 1.2 % High 0-1 [facility] Comment on above: Performed By: #### L 500.4050, L100.0100 ####[facility] [address] [place], [address] Eosinophils/100 WBC (Bld) 0.5 % Normal 0-5 [facility] Comment on above: Performed By: #### L 500.4050, L100.0100 ####[facility] [address] [place], [address] Erythrocyte distribution width (RBC) [Ratio] 12.1 % Normal 11.6-14.6 [facility] Comment on above: Performed By: #### L 500.4050, L100.0100 ####[facility] [address] [place], [address] Hematocrit (Bld) [Volume fraction] 47.3 % Normal 40-54 [facility] Comment on above: Performed By: #### L 500.4050, L100.0100 ####[facility] [address] [place], [address] Hemoglobin (Bld) [Mass/Vol] 15.8 g/dL Normal 13.0-16.5 [facility] Comment on above: Performed By: #### L 500.4050, L100.0100 ####[facility] [address] [place], [address] IG% 0.300 Normal 0.0-0.9 [facility] Comment on above: Result Comment: IG% - Immature Granulocytes (promyelocytes, myelocytes andmetamyelocytes) > 1% indicates that a LEFT SHIFT is Present. Performed By: #### L 500.4050, L100.0100 ####[facility] [address] [place], [address] Lymphocytes/100 WBC (Bld) 16.3 % Low 19-41 [facility] Comment on above: Performed By: #### L 500.4050, L100.0100 ####[facility] [address] [place], [address] MCH (RBC) [Entitic mass] 31.5 pg Normal 27.0-32.0 [facility] Comment on above: Performed By: #### L 500.4050, L100.0100 ####[facility] [address] [place], [address] MCHC (RBC) [Mass/Vol] 33.4 g/dL Normal 32-36 [facility] Comment on above: Performed By: #### L 500.4050, L100.0100 ####[facility] [address] [place], [address] MCV (RBC) [Entitic vol] 94.4 fL High 80-94 [facility] Comment on above: Performed By: #### L 500.4050, L100.0100 ####[facility] [address] [place], [address] Monocytes/100 WBC (Bld) 6.3 % Normal 0-10 [facility] Comment on above: Performed By: #### L 500.4050, L100.0100 ####[facility] [address] [place], [address] Neutrophils/100 WBC (Bld) 75.4 % High 47-70 [facility] Comment on above: Performed By: #### L 500.4050, L100.0100 ####[facility] [address] [place], [address] Nucleated RBC (Bld) [#/Vol] 0 10*3/uL Normal 0-5 [facility] Comment on above: Performed By: #### L 500.4050, L100.0100 ####[facility] [address] [place], [address] Platelet mean volume (Bld) [Entitic vol] 9.9 fL Normal 6.2-12.0 [facility] Comment on above: Performed By: #### L 500.4050, L100.0100 ####[facility] [address] [place], [address] Platelets (Bld) [#/Vol] 300 10*3/uL Normal 150-450 [facility] Comment on above: Performed By: #### L 500.4050, L100.0100 ####[facility] [address] [place], [address] RBC (Bld) [#/Vol] 5.01 10*6/uL Normal 4.6-6.2 [facility] Comment on above: Performed By: #### L 500.4050, L100.0100 ####[facility] [address] [place], [address] RDW SD 42.1 fl Normal 35.1-43.9 [facility] Comment on above: Performed By: #### L 500.4050, L100.0100 ####[facility] [address] [place], [address] WBC (Bld) [#/Vol] 5.9 10*3/uL Normal 4.4-11.0 [facility] Comment on above: Performed By: #### L 500.4050, L100.0100 ####[facility] [address] [place], [address] Chest 1 View (Portable)on Chest 1 View (Portable) Normal [facility] Comprehensive Metabolic Prof ilon 12-08-2023 Albumin [Mass/Vol] 3.9 g/dL Normal 3.2-5.0 [facility] Comment on above: Performed By: #### L 500.4050, L100.0100 ####[facility] [address] [place], [address] Albumin/Globulin [Mass ratio] 1.1 {ratio} Normal 0.9-2.4 [facility] Comment on above: Performed By: #### L 500.4050, L100.0100 ####[facility] [address] [place], [address] ALK P 79 U/L Normal 45-117 [facility] Comment on above: Performed By: #### L 500.4050, L100.0100 ####[facility] [address] [place], [address] ALT [Catalytic activity/Vol] 54 U/L Normal 16-61 [facility] Comment on above: Performed By: #### L 500.4050, L100.0100 ####[facility] [address] [place], [address] AST [Catalytic activity/Vol] 33 U/L Normal 15-37 [facility] Comment on above: Performed By: #### L 500.4050, L100.0100 ####[facility] [address] [place], [address] Bilirubin [Mass/Vol] 0.20 mg/dL Normal 0.20-1.00 [facility] Comment on above: Result Comment: For patients on eltrombopag therapy, use of Dimension [place] TBIL is not recommended. Performed By: #### L 500.4050, L100.0100 ####[facility] [address] [place], [address] BUN/CRE 15.5 RATIO Normal 10-20 [facility] Comment on above: Performed By: #### L 500.4050, L100.0100 ####[facility] [address] [place], [address] CA,Total 9.6 mg/dL Normal 8.5-10.1 [facility] Comment on above: Performed By: #### L 500.4050, L100.0100 ####[facility] [address] [place], [address] Chloride [Moles/Vol] 103 mmol/L Normal 98-107 [facility] Comment on above: Performed By: #### L 500.4050, L100.0100 ####[facility] [address] [place], [address] CO2 [Moles/Vol] 24.0 mmol/L Normal 21.0-32.0 [facility] Comment on above: Performed By: #### L 500.4050, L100.0100 ####[facility] [address] [place], [address] Creatinine [Mass/Vol] 1.10 mg/dL Normal 0.70-1.30 [facility] Comment on above: Result Comment: The validity of the calculated GFR GFRAA in patients over70 years has not been determined. Clinical correlation isessential. Performed By: #### L 500.4050, L100.0100 ####[facility] [address] [place], [address] ECRCL 56.42 ml/min Normal [facility] Comment on above: Performed By: #### L 500.4050, L100.0100 ####[facility] [address] [place], [address] EST GFR - AA 84 mL/min Normal >60 [facility] Comment on above: Result Comment: Afri can Austrian GFR Calc Performed By: #### L 500.4050, L100.0100 ####[facility] [address] [place], [address] GAP 11 Normal 5-15 [facility] Comment on above: Performed By: #### L 500.4050, L100.0100 ####[facility] [address] [place], [address] GFR/1.73 sq M.predicted among non-blacks MDRD (S/P/Bld) [Vol rate/Area] 69 mL/min/{1.73_m2} Normal >60 [facility] Comment on above: Result Comment: Non- GFR Calc Performed By: #### L 500.4050, L100.0100 ####[facility] [address] [place], [address] Globulin (S) [Mass/Vol] 3.7 g/dL Normal 2.2-4.2 [facility] Comment on above: Performed By: #### L 500.4050, L100.0100 ####[facility] [address] [place], [address] Glucose [Mass/Vol] 118 mg/dL High 74-106 [facility] Comment on above: Result Comment: Fast ing Glucose result from 100 to 125 mg/dLsuggests IMPAIRED HOMEOSTASIS per A.D.A. criteria. Performed By: #### L 500.4050, L100.0100 ####[facility] [address] [place], [address] Potassium [Moles/Vol] 3.7 mmol/L Normal 3.5-5.1 [facility] Comment on above: Performed By: #### L 500.4050, L100.0100 ####[facility] [address] [place], [address] Sodium [Moles/Vol] 138 mmol/L Normal 136-145 [facility] Comment on above: Performed By: #### L 500.4050, L100.0100 ####[facility] [address] [place], [address] T PROT 7.6 g/dL Normal 6.4-8.2 [facility] Comment on above: Performed By: #### L 500.4050, L100.0100 ####[facility] [address] [place], [address] Urea nitrogen [Mass/Vol] 17 mg/dL Normal 7-18 [facility] Comment on above: Performed By: #### L 500.4050, L100.0100 ####[facility] [address] [place], [address] Emergency Department Summary on 12-08-2023 Emergency Department Summary Normal [facility] Prothrombin Time w/INRon INR Coag (PPP) [Relative time] 1.1 {INR} Normal [facility] Comment on above: Performed By: #### L 300.3900 ####[facility] [address] [place], [address] PT Coag (PPP) [Time] 14.0 s Normal 11.7-14.9 [facility] Comment on above: Performed By: #### L 300.3900 ####[facility] [address] [place], [address] Urinalysis, Completeon 12-07 BACTERIA Normal None Seen [facility] Comment on above: Order Comment: MEHREEN CTOR TO SPECIFY Result Comment: NO U RINE COLLECTED. PATIENT DEPARTED ED. Performed By: #### L 400.0001 ####[facility] [address] [place], [address] BILIRUBIN URINE Normal Negative [facility] Comment on above: Order Comment: COLLE CTOR TO SPECIFY Result Comment: NO U RINE COLLECTED. PATIENT DEPARTED ED. Performed By: #### L 400.0001 ####[facility] [address] [place], [address] Clarity (U) Normal Clear [facility] Comment on above: Order Comment: COLLE CTOR TO SPECIFY Result Comment: NO U RINE COLLECTED. PATIENT DEPARTED ED. Performed By: #### L 400.0001 ####[facility] [address] [place], [address] Color (U) Normal Yellow [facility] Comment on above: Order Comment: MEHREEN CTOR TO SPECIFY Result Comment: NO U RINE COLLECTED. PATIENT DEPARTED ED. Performed By: #### L 400.0001 ####[facility] [address] [place], [address] EPI,SQUAMOUS Normal 0-5 [facility] Comment on above: Order Comment: COLLE CTOR TO SPECIFY Result Comment: NO U RINE COLLECTED. PATIENT DEPARTED ED. Performed By: #### L 400.0001 ####[facility] [address] [place], [address] GLUCOSE, UR Normal Normal [facility] Comment on above: Order Comment: MEHREEN CTOR TO SPECIFY Result Comment: NO U RINE COLLECTED. PATIENT DEPARTED ED. Performed By: #### L 400.0001 ####[facility] [address] [place], [address] KETONE UR Normal Negative [facility] Comment on above: Order Comment: MEHREEN CTOR TO SPECIFY Result Comment: NO U RINE COLLECTED. PATIENT DEPARTED ED. Performed By: #### L 400.0001 ####[facility] [address] [place], [address] LEUK ESTERASE Normal Negative [facility] Comment on above: Order Comment: MEHREEN CTOR TO SPECIFY Result Comment: NO U RINE COLLECTED. PATIENT DEPARTED ED. Performed By: #### L 400.0001 ####[facility] [address] [place], [address] Mucus Ql (Urine sed) Normal [facility] Comment on above: Order Comment: MEHREEN CTOR TO SPECIFY Result Comment: NO U RINE COLLECTED. PATIENT DEPARTED ED. Performed By: #### L 400.0001 ####[facility] [address] [place], [address] Nitrite Ql (U) Normal Negative [facility] Comment on above: Order Comment: MEHREEN CTOR TO SPECIFY Result Comment: NO U RINE COLLECTED. PATIENT DEPARTED ED. Performed By: #### L 400.0001 ####[facility] [address] [place], [address] OCCULT BLOOD-UR Normal Negative [facility] Comment on above: Order Comment: MEHREEN CTOR TO SPECIFY Result Comment: NO U RINE COLLECTED. PATIENT DEPARTED ED. Performed By: #### L 400.0001 ####[facility] [address] [place], [address] pH UR Normal 5.0 - 8.0 [facility] Comment on above: Order Comment: MEHREEN CTOR TO SPECIFY Result Comment: NO U RINE COLLECTED. PATIENT DEPARTED ED. Performed By: #### L 400.0001 ####[facility] [address] [place], [address] PROT DIPSTX Normal Negative [facility] Comment on above: Order Comment: MEHREEN CTOR TO SPECIFY Result Comment: NO U RINE COLLECTED. PATIENT DEPARTED ED. Performed By: #### L 400.0001 ####[facility] [address] [place], [address] RBC Normal 0-5 [facility] Comment on above: Order Comment: MEHREEN CTOR TO SPECIFY Result Comment: NO U RINE COLLECTED. PATIENT DEPARTED ED. Performed By: #### L 400.0001 ####[facility] [address] [place], [address] SP.GR. DIPSTX Normal 1.002-1.030 [facility] Comment on above: Order Comment: MEHREEN CTOR TO SPECIFY Result Comment: NO U RINE COLLECTED. PATIENT DEPARTED ED. Performed By: #### L 400.0001 ####[facility] [address] [place], [address] UR Preservative Normal [facility] Comment on above: Order Comment: MEHREEN CTOR TO SPECIFY Result Comment: NO U RINE COLLECTED. PATIENT DEPARTED ED. Performed By: #### L 400.0001 ####[facility] [address] [place], [address] UROBILI Normal Normal [facility] Comment on above: Order Comment: COLLE CTOR TO SPECIFY Result Comment: NO U RINE COLLECTED. PATIENT DEPARTED ED. Performed By: #### L 400.0001 ####[facility] [address] [place], [address] WBC Normal 0-5 [facility] Comment on above: Order Comment: COLLE CTOR TO SPECIFY Result Comment: NO U RINE COLLECTED. PATIENT DEPARTED ED. Performed By: #### L 400.0001 ####[facility] [address] [place], [address] Absolute lymphocyte countOrd ered By: Brody Maynard on 07-31-2023 Lymphocytes Auto (Unsp spec) [#/Vol] 0.39 10*3/uL 0.83-4.51 [facility] Automated lymphocyte count a s percentage of total leukocytesOrdered By: Brody Maynard on 07-31-2023 Lymphocytes/100 WBC Auto (Unsp spec) 7.1 % 19-41 [facility] Basophil percentageOrdered B y: Brody Maynard on 07-31-2023 Basophil percentage 12.6 g/dL 13.0-16.5 [facility] Basophil percentage 113 mg/dL 74-106 [facility] Basophil percentage 139 mmol/L 136-145 [facility] Basophil percentage 4.0 mmol/L 3.5-5.1 [facility] Basophil percentage 102 mmol/L 98-107 [facility] Basophils (Bld) [#/Vol] 5.5 10*3/uL 4.4-11.0 [facility] Basophils (Bld) [#/Vol] 4.7 10*3/uL 2.0-7.7 [facility] Basophils/100 WBC (Bld) 85.0 % 47-70 [facility] Basophils/100 WBC (Bld) 7.1 % 0-10 [facility] [facility]/100 WBC (Bld) 0.0 % 0-5 [facility] Basophils/100 WBC (Bld) 0.4 % 0-1 [facility] Determination of erythrocyte mean corpuscular volume (MCV)Ordered By: Brody Maynard on 07-31-2023 MCV (RBC) [Entitic vol] 98.4 fL 80-94 [facility] Erythrocyte distribution wid th ratioOrdered By: Brody Maynard on 07-31-2023 Erythrocyte distribution width (RBC) [Ratio] 13.2 % 11.6-14.6 [facility] Erythrocyte distribution wid th standard deviationOrdered By: Brody Maynard on 07-31-2023 Erythrocyte distribution width (RBC) [Entitic vol] 47.2 fL 35.1-43.9 [facility] Hematocrit Auto (Bld) [Volum e fraction]Ordered By: Brody Maynard on 07-31-2023 Hematocrit (Bld) [Volume fraction] 37.9 % 40-54 [facility] Immature granulocytes/100 WB C Auto (Bld)Ordered By: Brody Maynard on 07-31-2023 Immature granulocytes/100 WBC (Bld) 0.400 % 0.0-0.9 [facility] No Panel InformationOrdered By: Brody Maynard on 07-31-2023 32.7 pg 27.0-32.0 [facility] 33.2 g/dL 32-36 [facility] 284 K/mm3 150-450 [facility] 10.1 fl 6.2-12.0 [facility] 0 % 0-5 [facility] 77 mL/min >60 [facility] 93 mL/min >60 [facility] 60.90 ml/min [facility] 22.8 RATIO 10-20 [facility] 29.0 mmol/L 21.0-32.0 [facility] RBC Auto (Bld) [#/Vol]Ordere d By: Brody Maynard on 07-31-2023 RBC (Bld) [#/Vol] 3.85 10*6/uL 4.6-6.2 [facility] Serum or plasma calcium luis urement (mass/volume)Ordered By: Brody Maynard on 07-31-2023 Calcium [Mass/Vol] 8.6 mg/dL 8.5-10.1 [facility] Serum or plasma creatinine m easurement (mass/volume)Ordered By: Brody Maynard on 07-31-2023 Creatinine [Mass/Vol] 1.01 mg/dL 0.70-1.30 [facility] Serum or plasma urea nitroge n measurement (mass/volume)Ordered By: Brody Maynard on 07-31-2023 Urea nitrogen [Mass/Vol] 23 mg/dL 7-18 [facility] Thin prep Papanicolaou smear with manual screeningOrdered By: Brody Maynard on 07-31-2023 Thin prep Papanicolaou smear with manual screening 8 5-15 [facility] Absolute lymphocyte countOrd ered By: Андрей Ng on 07-30-2023 Lymphocytes Auto (Unsp spec) [#/Vol] 0.60 10*3/uL 0.83-4.51 [facility] Automated lymphocyte count a s percentage of total leukocytesOrdered By: Андрей Ng on 07-30-2023 Lymphocytes/100 WBC Auto (Unsp spec) 10.9 % 19-41 [facility] Base excessOrdered By: ED VA MARGIEER on 07-30-2023 Base excess Calc (BldV) [Moles/Vol] 2 mmol/L -1.0-3.5 [facility] Basophil percentageOrdered B y: Андрей Ng on 07-30-2023 Basophil percentage 0 SEEN /hpf 0-5 [facility] Basophil percentage 13.3 g/dL 13.0-16.5 [facility] Basophil percentage 114 mg/dL 74-106 [facility] Basophil percentage 138 mmol/L 136-145 [facility] Basophil percentage 4.2 mmol/L 3.5-5.1 [facility] Basophil percentage 102 mmol/L 98-107 [facility] Basophils (Bld) [#/Vol] 5.5 10*3/uL 4.4-11.0 [facility] Basophils (Bld) [#/Vol] 4.2 10*3/uL 2.0-7.7 [facility] Basophils/100 WBC (Bld) 76.5 % 47-70 [facility] Basophils/100 WBC (Bld) 10.7 % 0-10 [facility] Basophils/100 WBC (Bld) 0.5 % 0-5 [facility] Basophils/100 WBC (Bld) 0.9 % 0-1 [facility] Bilirubin Test strip Ql (U)O rdered By: Андрей Ng on 07-30-2023 Bilirubin Ql (U) Negative Negative [facility] CO2 (BldV) [Moles/Vol]Ordere d By: ED PROVIDER on 07-30-2023 CO2 [Moles/Vol] 29 mmol/L 23-33 [facility] Determination of erythrocyte mean corpuscular volume (MCV)Ordered By: Андрей Ng on 07-30-2023 MCV (RBC) [Entitic vol] 99.3 fL 80-94 [facility] Erythrocyte distribution wid th ratioOrdered By: Андрей Ng on 07-30-2023 Erythrocyte distribution width (RBC) [Ratio] 13.2 % 11.6-14.6 [facility] Erythrocyte distribution wid th standard deviationOrdered By: Андрей Ng on 07-30-2023 Erythrocyte distribution width (RBC) [Entitic vol] 48.3 fL 35.1-43.9 [facility] Hematocrit Auto (Bld) [Volum e fraction]Ordered By: Андрей Ng on 07-30-2023 Hematocrit (Bld) [Volume fraction] 40.4 % 40-54 [facility] Immature granulocytes/100 WB C Auto (Bld)Ordered By: Андрей Ng on 07-30-2023 Immature granulocytes/100 WBC (Bld) 0.500 % 0.0-0.9 [facility] Ketones Test strip Ql (U)Ord ered By: Андрей Ng on 07-30-2023 Ketones Ql (U) Negative Negative [facility] Mucus LM Ql (Urine sed)Order ed By: Андрей Ng on 07-30-2023 Mucus Ql (Urine sed) 0 SEEN /hpf [facility] Nitrite Test strip Ql (U)Ord ered By: Андрей Ng on 07-30-2023 Nitrite Ql (U) Negative Negative [facility] No Panel InformationOrdered By: Андрей Ng on 07-30-2023 0 SEEN /hpf 0-5 [facility] Influenzae A [facility] 32.7 pg 27.0-32.0 [facility] 32.9 g/dL 32-36 [facility] 262 K/mm3 150-450 [facility] 9.4 fl 6.2-12.0 [facility] 0 % 0-5 [facility] 67 mL/min >60 [facility] 81 mL/min >60 [facility] 55.00 ml/min [facility] 22.8 RATIO 10-20 [facility] 15 pg/mL 3.0-78.0 [facility] 29.0 mmol/L 21.0-32.0 [facility] 218.8 pg/mL 0-100 [facility] No Panel InformationOrdered By: ED PROVIDER on 07-30-2023 LASHAE [facility] Not entered [facility] Cannula [facility] 3.0 [facility] 28 mmol/L 22-26 [facility] 69 % 50-70 [facility] PCO2 venousOrdered By: ED VA OVIDER on 07-30-2023 CO2 (BldV) [Partial pressure] 48.6 mm[Hg] 41-51 [facility] PO2 venousOrdered By: ED PRO VIDER on 07-30-2023 Oxygen (BldV) [Partial pressure] 38 mm[Hg] 25-40 [facility] Protein Test strip Ql (U)Ord ered By: Андрей Ng on 07-30-2023 Protein Ql (U) 30 mg/dl Negative [facility] RBC Auto (Bld) [#/Vol]Ordere d By: Андрей Ng on 07-30-2023 RBC (Bld) [#/Vol] 4.07 10*6/uL 4.6-6.2 [facility] Serum or plasma calcium luis urement (mass/volume)Ordered By: Андрей Ng on 07-30-2023 Calcium [Mass/Vol] 9.2 mg/dL 8.5-10.1 [facility] Serum or plasma creatinine m easurement (mass/volume)Ordered By: Андрей Ng on 07-30-2023 Creatinine [Mass/Vol] 1.14 mg/dL 0.70-1.30 [facility] Serum or plasma urea nitroge n measurement (mass/volume)Ordered By: Андрей Ng on 07-30-2023 Urea nitrogen [Mass/Vol] 26 mg/dL 7-18 [facility] Squamous epithelial cells de tection in urine sediment by light microscopyOrdered By: Андрей Ng on 07-30-2023 Epithelial cells.squamous LM Ql (Urine sed) 0 SEEN /hpf 0-5 [facility] Thin prep Papanicolaou smear with manual screeningOrdered By: Андрей Ng on 07-30-2023 Thin prep Papanicolaou smear with manual screening 7 5-15 [facility] Urine blood detectionOrdered By: Андрей Ng on 07-30-2023 RBC Ql (U) 10 /ul Negative [facility] Urine clarityOrdered By: Italia Ng on 07-30-2023 Clarity (U) Clear Clear [facility] Urine color determinationOrd ered By: Андрей Ng on 07-30-2023 Color (U) Yellow Yellow [facility] Urine glucose detectionOrder ed By: Андрей Ng on 07-30-2023 Glucose Ql (U) Normal mg/dl Normal [facility] Urine leukocyte esterase det ection by dipstickOrdered By: Андрей Ng on 07-30-2023 Leukocyte esterase Test strip Ql (U) Negative Negative [facility] Urine pHOrdered By: Андрей garland on 07-30-2023 pH (U) 7.0 [pH] 5.0 - 8.0 [facility] Urine sediment bacteria coun t by microscopy (number/high power field)Ordered By: Андрей Ng on 07-30-2023 Bacteria LM.HPF (Urine sed) [#/Area] 0 /[HPF] None Seen [facility] Urine specific gravity measu rementOrdered By: Андрей Ng on 07-30-2023 Specific gravity (U) [Rel density] 1.010 1.002-1.030 [facility] Urine urobilinogen measureme ntOrdered By: Андрей Ng on 07-30-2023 Urobilinogen Ql (U) Normal mg/dl Normal [facility] Venous blood pH measurementO rdered By: ED PROVIDER on 07-30-2023 pH (BldV) 7.36 [pH] 7.32-7.42 [facility] Basophil percentageOrdered B y: Андрей Cooley on 07-27-2023 Basophil percentage 12.8 g/dL 13.0-16.5 [facility] Basophil percentage 103 mg/dL 74-106 [facility] Basophil percentage 141 mmol/L 136-145 [facility] Basophil percentage 3.7 mmol/L 3.5-5.1 [facility] Basophil percentage 110 mmol/L 98-107 [facility] Basophils (Bld) [#/Vol] 6.8 10*3/uL 4.4-11.0 [facility] Determination of erythrocyte mean corpuscular volume (MCV)Ordered By: Андрей Cooley on 07-27-2023 MCV (RBC) [Entitic vol] 98.5 fL 80-94 [facility] Erythrocyte distribution wid th ratioOrdered By: Андрей Cooley on 07-27-2023 Erythrocyte distribution width (RBC) [Ratio] 13.1 % 11.6-14.6 [facility] Erythrocyte distribution wid th standard deviationOrdered By: Андрей Cooley on 07-27-2023 Erythrocyte distribution width (RBC) [Entitic vol] 46.7 fL 35.1-43.9 [facility] Hematocrit Auto (Bld) [Volum e fraction]Ordered By: Андрей Cooley on 07-27-2023 Hematocrit (Bld) [Volume fraction] 38.9 % 40-54 [facility] No Panel InformationOrdered By: Андрей Cooley on 07-27-2023 32.4 pg 27.0-32.0 [facility] 32.9 g/dL 32-36 [facility] 246 K/mm3 150-450 [facility] 10.1 fl 6.2-12.0 [facility] 56 mL/min >60 [facility] 68 mL/min >60 [facility] 26.5 RATIO 10-20 [facility] 29.0 mmol/L 21.0-32.0 [facility] RBC Auto (Bld) [#/Vol]Ordere d By: Андрей Cooley on 07-27-2023 RBC (Bld) [#/Vol] 3.95 10*6/uL 4.6-6.2 [facility] Serum or plasma calcium luis urement (mass/volume)Ordered By: Андрей Cooley on 07-27-2023 Calcium [Mass/Vol] 9.5 mg/dL 8.5-10.1 [facility] Serum or plasma creatinine m easurement (mass/volume)Ordered By: Андрей Cooley on 07-27-2023 Creatinine [Mass/Vol] 1.32 mg/dL 0.70-1.30 [facility] Serum or plasma urea nitroge n measurement (mass/volume)Ordered By: Андрей Cooley on 07-27-2023 Urea nitrogen [Mass/Vol] 35 mg/dL 7-18 [facility] Thin prep Papanicolaou smear with manual screeningOrdered By: Андрей Cooley on 07-27-2023 Thin prep Papanicolaou smear with manual screening 2 5-15 [facility] Absolute lymphocyte countOrd ered By: Андрей Cooley on 07-25-2023 Lymphocytes Auto (Unsp spec) [#/Vol] 1.22 10*3/uL 0.83-4.51 [facility] Automated lymphocyte count a s percentage of total leukocytesOrdered By: Андрей Cooley on 07-25-2023 Lymphocytes/100 WBC Auto (Unsp spec) 17.6 % 19-41 [facility] Basophil percentageOrdered B y: Андрей Cooley on 07-25-2023 Basophil percentage 14.3 g/dL 13.0-16.5 [facility] Basophil percentage 126 mg/dL 74-106 [facility] Basophil percentage 138 mmol/L 136-145 [facility] Basophil percentage 3.5 mmol/L 3.5-5.1 [facility] Basophil percentage 105 mmol/L 98-107 [facility] Basophils (Bld) [#/Vol] 6.9 10*3/uL 4.4-11.0 [facility] Basophils (Bld) [#/Vol] 4.9 10*3/uL 2.0-7.7 [facility] Basophils/100 WBC (Bld) 70.5 % 47-70 [facility] Basophils/100 WBC (Bld) 10.0 % 0-10 [facility] Basophils/100 WBC (Bld) 0.7 % 0-5 [facility] Basophils/100 WBC (Bld) 0.9 % 0-1 [facility] Determination of erythrocyte mean corpuscular volume (MCV)Ordered By: Андрей Cooley on 07-25-2023 MCV (RBC) [Entitic vol] 95.2 fL 80-94 [facility] Erythrocyte distribution wid th ratioOrdered By: Андрей Cooley on 07-25-2023 Erythrocyte distribution width (RBC) [Ratio] 12.7 % 11.6-14.6 [facility] Erythrocyte distribution wid th standard deviationOrdered By: Андрей Cooley on 07-25-2023 Erythrocyte distribution width (RBC) [Entitic vol] 44.9 fL 35.1-43.9 [facility] Hematocrit Auto (Bld) [Volum e fraction]Ordered By: Андрей Cooley on 07-25-2023 Hematocrit (Bld) [Volume fraction] 41.9 % 40-54 [facility] Immature granulocytes/100 WB C Auto (Bld)Ordered By: Андрей Cooley on 07-25-2023 Immature granulocytes/100 WBC (Bld) 0.300 % 0.0-0.9 [facility] No Panel InformationOrdered By: Андрей Cooley on 07-25-2023 32.5 pg 27.0-32.0 [facility] 34.1 g/dL 32-36 [facility] 245 K/mm3 150-450 [facility] 9.7 fl 6.2-12.0 [facility] 0 % 0-5 [facility] 62 mL/min >60 [facility] 75 mL/min >60 [facility] 39.28 ml/min [facility] 13.2 RATIO 10-20 [facility] 25.0 mmol/L 21.0-32.0 [facility] RBC Auto (Bld) [#/Vol]Ordere d By: Андрей Cooley on 07-25-2023 RBC (Bld) [#/Vol] 4.40 10*6/uL 4.6-6.2 [facility] Serum or plasma calcium luis urement (mass/volume)Ordered By: Андрей Cooley on 07-25-2023 Calcium [Mass/Vol] 9.3 mg/dL 8.5-10.1 [facility] Serum or plasma creatinine m easurement (mass/volume)Ordered By: Андрей Cooley on 07-25-2023 Creatinine [Mass/Vol] 1.21 mg/dL 0.70-1.30 [facility] Serum or plasma urea nitroge n measurement (mass/volume)Ordered By: Андрей Cooley on 07-25-2023 Urea nitrogen [Mass/Vol] 16 mg/dL 7-18 [facility] Thin prep Papanicolaou smear with manual screeningOrdered By: Андрей Cooley on 07-25-2023 Thin prep Papanicolaou smear with manual screening 8 5-15 [facility] Absolute lymphocyte countOrd ered By: Raul Melchor on 07-24-2023 Lymphocytes Auto (Unsp spec) [#/Vol] 1.14 10*3/uL 0.83-4.51 [facility] Automated lymphocyte count a s percentage of total leukocytesOrdered By: Raul Melchor on 07-24-2023 Lymphocytes/100 WBC Auto (Unsp spec) 16.0 % 19-41 [facility] Basophil percentageOrdered B y: Raul Melchor on 07-24-2023 Basophils/100 WBC (Bld) 1.0 % 0-1 [facility] Chloride [Moles/Vol] 103 mmol/L 98-107 [facility] Eosinophils/100 WBC (Bld) 1.1 % 0-5 [facility] Glucose [Mass/Vol] 134 mg/dL 74-106 [facility] Comment on above: Fasting Glucose resu lt greater than or equal to 126 mg/dL suggests DIABETES MELLITUS per A.D.A. criteria. Hemoglobin (Bld) [Mass/Vol] 16.2 g/dL 13.0-16.5 [facility] Monocytes/100 WBC (Bld) 7.3 % 0-10 [facility] Neutrophils (Bld) [#/Vol] 5.3 10*3/uL 2.0-7.7 [facility] Neutrophils/100 WBC (Bld) 74.0 % 47-70 [facility] Potassium [Moles/Vol] 3.8 mmol/L 3.5-5.1 [facility] Comment on above: Moderate Hemolysis, Result may be falsely increased. Sodium [Moles/Vol] 139 mmol/L 136-145 [facility] WBC (Bld) [#/Vol] 7.1 10*3/uL 4.4-11.0 [facility] Determination of erythrocyte mean corpuscular volume (MCV)Ordered By: Raul Melchor on 07-24-2023 MCV (RBC) [Entitic vol] 94.8 fL 80-94 [facility] Erythrocyte distribution wid th ratioOrdered By: Raul Melchor on 07-24-2023 Erythrocyte distribution width (RBC) [Ratio] 12.8 % 11.6-14.6 [facility] Erythrocyte distribution wid th standard deviationOrdered By: Raul Melchor on 07-24-2023 Erythrocyte distribution width (RBC) [Entitic vol] 44.3 fL 35.1-43.9 [facility] Hematocrit Auto (Bld) [Volum e fraction]Ordered By: Raul Melchor on 07-24-2023 Hematocrit (Bld) [Volume fraction] 47.4 % 40-54 [facility] Immature granulocytes/100 WB C Auto (Bld)Ordered By: Raul Melchor on 07-24-2023 Immature granulocytes/100 WBC (Bld) 0.600 % 0.0-0.9 [facility] Comment on above: IG% - Immature Granu locytes (promyelocytes, myelocytes and metamyelocytes) > 1% indicates that a LEFT SHIFT is Present. Laboratory - Chemistry and C hemistry - challengeOrdered By: Raul Melchor on 07-24-2023 CO2 [Moles/Vol] 28.0 mmol/L 21.0-32.0 [facility] Urea nitrogen/Creatinine [Mass ratio] 14.1 mg/mg 10-20 [facility] Laboratory - Hematology and Cell countsOrdered By: Raul Melchor on 07-24-2023 MCH (RBC) [Entitic mass] 32.4 pg 27.0-32.0 [facility] MCHC (RBC) [Mass/Vol] 34.2 g/dL 32-36 [facility] Nucleated RBC/100 WBC (Bld) [Ratio] 0 % 0-5 [facility] Platelets (Bld) [#/Vol] 285 10*3/uL 150-450 [facility] No Panel InformationOrdered By: Raul Melchor on 07-24-2023 Estimated Creatinine Clearance Calc 48.70 ml/min [facility] Estimated GFR (MDRD) Amer 71 mL/min >60 [facility] Comment on above: GFR Calc Estimated GFR (MDRD) Non-Af Amer 58 mL/min >60 [facility] Comment on above: Non- GFR Calc Platelet mean volume Ye-Ec ker (Bld) [Entitic vol]Ordered By: Raul Melchor on 07-24-2023 Platelet mean volume (Bld) [Entitic vol] 9.8 fL 6.2-12.0 [facility] RBC Auto (Bld) [#/Vol]Ordere d By: Raul Melchor on 07-24-2023 RBC (Bld) [#/Vol] 5.00 10*6/uL 4.6-6.2 [facility] Serum or plasma calcium luis urement (mass/volume)Ordered By: Raul Melchor on 07-24-2023 Calcium [Mass/Vol] 9.8 mg/dL 8.5-10.1 [facility] Serum or plasma creatinine m easurement (mass/volume)Ordered By: Raul Melchor on 07-24-2023 Creatinine [Mass/Vol] 1.28 mg/dL 0.70-1.30 [facility] Comment on above: The validity of the calculated GFR & GFRAA in patients over 70 years has not been determined. Clinical correlation is essential. Serum or plasma urea nitroge n measurement (mass/volume)Ordered By: Raul Melchor on 07-24-2023 Urea nitrogen [Mass/Vol] 18 mg/dL 7-18 [facility] Thin prep Papanicolaou smear with manual screeningOrdered By: Raul Melchor on 07-24-2023 Thin prep Papanicolaou smear with manual screening 8 5-15 [facility] UAon 07-10-2023 Color (U) Yellow Normal [facility] ([place]) Comment on above: Performed By: #### U A #### [address] [address] Glucose (U) [Mass/Vol] Negative Normal Negative [facility] Comment on above: Performed By: #### U A #### [address] [address] Ketones Ql (U) Negative Normal Neg-Trace [facility] ([place]) Comment on above: Performed By: #### U A #### [address] [address] UA Appear Clear Normal Clear [facility] ([place]) Comment on above: Performed By: #### U A #### [address] [address] UA Blood Negative Normal Neg-Trace [facility] ([place] Comment on above: Performed By: #### U A #### [place] [address] UA Leuk Est Negative Normal Negative [facility] ([place]) Comment on above: Performed By: #### U A #### [place] [address] UA Nitrite Negative Normal Negative [facility] ([place] Comment on above: Performed By: #### U A #### [place] [address] UA pH 5.5 Normal 5.0 - 8.0 [facility] ([place]) Comment on above: Performed By: #### U A #### [place] [address] UA Protein 30 mg/dL Normal Negative [facility] ([place]) Comment on above: Performed By: #### U A #### [place] [address] UA Spec Grav 1.020 Normal 1.006-1.029 [facility] ([place]) Comment on above: Performed By: #### U A #### [place] [address] UA Specimen Type Void Normal [facility] ([place]) Comment on above: Performed By: #### U A #### [place] [address] UA Urobilinogen 0.2 E.U./dL Normal 0.2-1.0 [facility] ([place]) Comment on above: Performed By: #### U A #### [place] [address] Urobilinogen (U) [Mass/Vol] Negative Normal Neg-Trace [facility] ([place]) Comment on above: Performed By: #### U A #### [facility] [address] [place] [id number] Absolute lymphocyte countOrd ered By: Daija Morton on 06-14-2023 Lymphocytes Auto (Unsp spec) [#/Vol] 1.09 10*3/uL 0.83-4.51 [facility] Basophil percentageOrdered B y: Daija Morton on 06-14-2023 Basophil percentage 108 mg/dL 74-106 [facility] Basophil percentage 139 mmol/L 136-145 [facility] Basophil percentage 4.2 mmol/L 3.5-5.1 [facility] Basophil percentage 104 mmol/L 98-107 [facility] Basophils (Bld) [#/Vol] 6.5 10*3/uL 4.4-11.0 [facility] Basophils (Bld) [#/Vol] 4.7 10*3/uL 2.0-7.7 [facility] Basophils/100 WBC (Bld) 1.4 % 0-1 [facility] Basophils/100 WBC (Bld) 72.2 % 47-70 [facility] Basophils/100 WBC (Bld) 2.0 % 0-5 [facility] Chloride [Moles/Vol] 104 mmol/L 98-107 [facility] Eosinophils/100 WBC (Bld) 2.0 % 0-5 [facility] Glucose [Mass/Vol] 108 mg/dL 74-106 [facility] Comment on above: Fasting Glucose resu lt from 100 to 125 mg/dL suggests IMPAIRED HOMEOSTASIS per A.D.A. criteria. Neutrophils (Bld) [#/Vol] 4.7 10*3/uL 2.0-7.7 [facility] Neutrophils/100 WBC (Bld) 72.2 % 47-70 [facility] Potassium [Moles/Vol] 4.2 mmol/L 3.5-5.1 [facility] Sodium [Moles/Vol] 139 mmol/L 136-145 [facility] WBC (Bld) [#/Vol] 6.5 10*3/uL 4.4-11.0 [facility] Blood erythrocytes count (nu mber/volume)Ordered By: Daija Morton on 06-14-2023 RBC (Bld) [#/Vol] 4.73 10*6/uL 4.6-6.2 [facility] Blood hemoglobin measurement (mass/volume)Ordered By: Daija Morton on 06-14-2023 Hemoglobin (Bld) [Mass/Vol] 15.8 g/dL 13.0-16.5 [facility] Blood lymphocytes/100 leukoc ytesOrdered By: Daija Morton on 06-14-2023 Lymphocytes/100 WBC (Bld) 16.8 % 19-41 [facility] Blood monocytes/100 leukocyt esOrdered By: Daija Morton on 06-14-2023 Monocytes/100 WBC (Bld) 7.1 % 0-10 [facility] Blood platelet mean volumeOr dered By: Daija Morton on 06-14-2023 Platelet mean volume (Bld) [Entitic vol] 9.9 fL 6.2-12.0 [facility] Determination of erythrocyte mean corpuscular volume (MCV)Ordered By: Daija Morton on 06-14-2023 MCV (RBC) [Entitic vol] 96.6 fL 80-94 [facility] Hematocrit Auto (Bld) [Volum e fraction]Ordered By: Daija Morton on 06-14-2023 Hematocrit (Bld) [Volume fraction] 45.7 % 40-54 [facility] Laboratory - Chemistry and C hemistry - challengeOrdered By: Daija Morton on 06-14-2023 CO2 [Moles/Vol] 30.0 mmol/L 21.0-32.0 [facility] Urea nitrogen/Creatinine [Mass ratio] 16.1 mg/mg 10-20 [facility] Laboratory - Hematology and Cell countsOrdered By: Daija Morton on 06-14-2023 Erythrocyte distribution width (RBC) [Entitic vol] 46.5 fL 35.1-43.9 [facility] Erythrocyte distribution width (RBC) [Ratio] 13.1 % 11.6-14.6 [facility] Immature granulocytes/100 WBC (Bld) 0.500 % 0.0-0.9 [facility] Comment on above: IG% - Immature Granu locytes (promyelocytes, myelocytes and metamyelocytes) > 1% indicates that a LEFT SHIFT is Present. MCH (RBC) [Entitic mass] 33.4 pg 27.0-32.0 [facility] Nucleated RBC/100 WBC (Bld) [Ratio] 0 % 0-5 [facility] MCHC Auto (RBC) [Mass/Vol]Or dered By: Daija Morton on 06-14-2023 MCHC (RBC) [Mass/Vol] 34.6 g/dL 32-36 [facility] No Panel InformationOrdered By: Daija Morton on 06-14-2023 Estimated GFR (MDRD) Amer 73 mL/min >60 [facility] Comment on above: GFR Calc Estimated GFR (MDRD) Non-Af Amer 61 mL/min >60 [facility] Comment on above: Non- GFR Calc 33.4 pg 27.0-32.0 [facility] 13.1 % 11.6-14.6 [facility] 46.5 fl 35.1-43.9 [facility] 0.500 % 0.0-0.9 [facility] 0 % 0-5 [facility] 61 mL/min >60 [facility] 73 mL/min >60 [facility] 16.1 RATIO 10-20 [facility] 30.0 mmol/L 21.0-32.0 [facility] Platelets bldOrdered By: Nemesio Morton on 06-14-2023 Platelets (Bld) [#/Vol] 285 10*3/uL 150-450 [facility] Serum or plasma calcium luis urement (mass/volume)Ordered By: Dajia Morton on 06-14-2023 Calcium [Mass/Vol] 9.8 mg/dL 8.5-10.1 [facility] Serum or plasma creatinine m easurement (mass/volume)Ordered By: Daija Morton on 06-14-2023 Creatinine [Mass/Vol] 1.24 mg/dL 0.70-1.30 [facility] Comment on above: The validity of the calculated GFR & GFRAA in patients over 70 years has not been determined. Clinical correlation is essential. Serum or plasma urea nitroge n measurement (mass/volume)Ordered By: Daija Morton on 06-14-2023 Urea nitrogen [Mass/Vol] 20 mg/dL 7-18 [facility] Thin prep Papanicolaou smear with manual screeningOrdered By: Daija Morton on 06-14-2023 Thin prep Papanicolaou smear with manual screening 5 5-15 [facility] Basophil percentageOrdered B y: Андрей Cooley on 05-19-2023 Basophil percentage 100 mg/dL 74-106 [facility] Basophil percentage 6.5 g/dL 6.4-8.2 [facility] Basophil percentage 0.30 mg/dL 0.20-1.00 [facility] Basophil percentage 141 mmol/L 136-145 [facility] Basophil percentage 3.6 mmol/L 3.5-5.1 [facility] Basophil percentage 109 mmol/L 98-107 [facility] Basophils (Bld) [#/Vol] 6.2 10*3/uL 4.4-11.0 [facility] Bilirubin [Mass/Vol] 0.30 mg/dL 0.20-1.00 [facility] Comment on above: For patients on eltr ombopag therapy, use of [place] TBIL is not recommended. Chloride [Moles/Vol] 109 mmol/L 98-107 [facility] Glucose [Mass/Vol] 100 mg/dL 74-106 [facility] Comment on above: Fasting Glucose resu lt from 100 to 125 mg/dL suggests IMPAIRED HOMEOSTASIS per A.D.A. criteria. Potassium [Moles/Vol] 3.6 mmol/L 3.5-5.1 [facility] Protein [Mass/Vol] 6.5 g/dL 6.4-8.2 [facility] Sodium [Moles/Vol] 141 mmol/L 136-145 [facility] WBC (Bld) [#/Vol] 6.2 10*3/uL 4.4-11.0 [facility] Blood erythrocytes count (nu mber/volume)Ordered By: Андрей Cooley on 05-19-2023 RBC (Bld) [#/Vol] 4.24 10*6/uL 4.6-6.2 [facility] Blood hemoglobin measurement (mass/volume)Ordered By: Андрей Cooley on 05-19-2023 Hemoglobin (Bld) [Mass/Vol] 13.8 g/dL 13.0-16.5 [facility] Blood platelet mean volumeOr dered By: Андрей Cooley on 05-19-2023 Platelet mean volume (Bld) [Entitic vol] 9.9 fL 6.2-12.0 [facility] Determination of erythrocyte mean corpuscular volume (MCV)Ordered By: Андрей Cooley on 05-19-2023 MCV (RBC) [Entitic vol] 99.5 fL 80-94 [facility] Hematocrit Auto (Bld) [Volum e fraction]Ordered By: Андрей Cooley on 05-19-2023 Hematocrit (Bld) [Volume fraction] 42.2 % 40-54 [facility] - Chemistry and C hemistry - challengeOrdered By: Андрей Cooley on 05-19-2023 ALP [Catalytic activity/Vol] 72 U/L 45-117 [facility] ALT [Catalytic activity/Vol] 33 U/L 16-61 [facility] CO2 [Moles/Vol] 29.0 mmol/L 21.0-32.0 [facility] Globulin (S) [Mass/Vol] 3.1 g/dL 2.2-4.2 [facility] Urea nitrogen/Creatinine [Mass ratio] 18.6 mg/mg 10-20 [facility] - Hematology and Cell countsOrdered By: Андрей Cooley on 05-19-2023 Erythrocyte distribution width (RBC) [Entitic vol] 52.4 fL 35.1-43.9 [facility] Erythrocyte distribution width (RBC) [Ratio] 14.3 % 11.6-14.6 [facility] MCH (RBC) [Entitic mass] 32.5 pg 27.0-32.0 [facility] MCHC Auto (RBC) [Mass/Vol]Or dered By: Андрей Cooley on 05-19-2023 MCHC (RBC) [Mass/Vol] 32.7 g/dL 32-36 [facility] No Panel InformationOrdered By: Андрей Cooley on 05-19-2023 Estimated GFR (MDRD) Amer 78 mL/min >60 [facility] Comment on above: GFR Calc Estimated GFR (MDRD) Non-Af Amer 64 mL/min >60 [facility] Comment on above: Non- GFR Calc 32.5 pg 27.0-32.0 [facility] 14.3 % 11.6-14.6 [facility] 52.4 fl 35.1-43.9 [facility] 64 mL/min >60 [facility] 78 mL/min >60 [facility] 18.6 RATIO 10-20 [facility] 3.1 g/dL 2.2-4.2 [facility] 72 U/L 45-117 [facility] 33 U/L 16-61 [facility] 29.0 mmol/L 21.0-32.0 [facility] Platelets bldOrdered By: Italia Cooley on 05-19-2023 Platelets (Bld) [#/Vol] 284 10*3/uL 150-450 [facility] Serum or plasma albumin luis urement (mass/volume)Ordered By: Андрей Cooley on 05-19-2023 Albumin [Mass/Vol] 3.4 g/dL 3.2-5.0 [facility] Serum or plasma albumin/glob ulin mass ratioOrdered By: Андрей Cooley on 05-19-2023 Albumin/Globulin [Mass ratio] 1.1 {ratio} 0.9-2.4 [facility] Serum or plasma calcium luis urement (mass/volume)Ordered By: Андрей Cooley on 05-19-2023 Calcium [Mass/Vol] 8.7 mg/dL 8.5-10.1 [facility] Serum or plasma creatinine m easurement (mass/volume)Ordered By: Андрей Cooley on 05-19-2023 Creatinine [Mass/Vol] 1.18 mg/dL 0.70-1.30 [facility] Comment on above: The validity of the calculated GFR & GFRAA in patients over 70 years has not been determined. Clinical correlation is essential. Serum or plasma urea nitroge n measurement (mass/volume)Ordered By: Андрей Cooley on 05-19-2023 Urea nitrogen [Mass/Vol] 22 mg/dL 7-18 [facility] Thin prep Papanicolaou smear with manual screeningOrdered By: Андрей Cooley on 05-19-2023 Thin prep Papanicolaou smear with manual screening 17 U/L 15-37 [facility] Thin prep Papanicolaou smear with manual screening 3 5-15 [facility] Basophil percentageOrdered B y: Андрей Cooley on 04-19-2023 Basophil percentage 92 mg/dL 74-106 [facility] Basophil percentage 6.8 g/dL 6.4-8.2 [facility] Basophil percentage 0.20 mg/dL 0.20-1.00 [facility] Basophil percentage 140 mmol/L 136-145 [facility] Basophil percentage 4.0 mmol/L 3.5-5.1 [facility] Basophil percentage 105 mmol/L 98-107 [facility] Basophils (Bld) [#/Vol] 6.2 10*3/uL 4.4-11.0 [facility] Bilirubin [Mass/Vol] 0.20 mg/dL 0.20-1.00 [facility] Comment on above: For patients on eltr ombopag therapy, use of [place] TBIL is not recommended. Chloride [Moles/Vol] 105 mmol/L 98-107 [facility] Glucose [Mass/Vol] 92 mg/dL 74-106 [facility] Potassium [Moles/Vol] 4.0 mmol/L 3.5-5.1 [facility] Protein [Mass/Vol] 6.8 g/dL 6.4-8.2 [facility] Sodium [Moles/Vol] 140 mmol/L 136-145 [facility] WBC (Bld) [#/Vol] 6.2 10*3/uL 4.4-11.0 [facility] Blood erythrocytes count (nu mber/volume)Ordered By: Андрей Cooley on 04-19-2023 RBC (Bld) [#/Vol] 4.26 10*6/uL 4.6-6.2 [facility] Blood hemoglobin measurement (mass/volume)Ordered By: Андрей Cooley on 04-19-2023 Hemoglobin (Bld) [Mass/Vol] 13.6 g/dL 13.0-16.5 [facility] Blood platelet mean volumeOr dered By: Андрей Cooley on 04-19-2023 Platelet mean volume (Bld) [Entitic vol] 9.7 fL 6.2-12.0 [facility] Determination of erythrocyte mean corpuscular volume (MCV)Ordered By: Андрей Cooley on 04-19-2023 MCV (RBC) [Entitic vol] 99.5 fL 80-94 [facility] Hematocrit Auto (Bld) [Volum e fraction]Ordered By: Андрей Cooley on 04-19-2023 Hematocrit (Bld) [Volume fraction] 42.4 % 40-54 [facility] - Chemistry and C hemistry - challengeOrdered By: Андрей Cooley on 04-19-2023 ALP [Catalytic activity/Vol] 82 U/L 45-117 [facility] ALT [Catalytic activity/Vol] 27 U/L 16-61 [facility] CO2 [Moles/Vol] 29.0 mmol/L 21.0-32.0 [facility] Globulin (S) [Mass/Vol] 3.5 g/dL 2.2-4.2 [facility] Urea nitrogen/Creatinine [Mass ratio] 22.2 mg/mg 10-20 [facility] - Hematology and Cell countsOrdered By: Андрей Cooley on 04-19-2023 Erythrocyte distribution width (RBC) [Entitic vol] 51.8 fL 35.1-43.9 [facility] Erythrocyte distribution width (RBC) [Ratio] 14.4 % 11.6-14.6 [facility] MCH (RBC) [Entitic mass] 31.9 pg 27.0-32.0 [facility] MCHC Auto (RBC) [Mass/Vol]Or dered By: Андрей Cooley on 04-19-2023 MCHC (RBC) [Mass/Vol] 32.1 g/dL 32-36 [facility] No Panel InformationOrdered By: Андрей Cooley on 04-19-2023 Estimated GFR (MDRD) Amer 86 mL/min >60 [facility] Comment on above: GFR Calc Estimated GFR (MDRD) Non-Af Amer 71 mL/min >60 [facility] Comment on above: Non- GFR Calc 31.9 pg 27.0-32.0 [facility] 14.4 % 11.6-14.6 [facility] 51.8 fl 35.1-43.9 [facility] 71 mL/min >60 [facility] 86 mL/min >60 [facility] 22.2 RATIO 04-07 [facility] 3.5 g/dL 2.2-4.2 [facility] 82 U/L 45-117 [facility] 27 U/L 16-61 [facility] 29.0 mmol/L 21.0-32.0 [facility] Platelets bldOrdered By: Italia Cooley on 04-19-2023 Platelets (Bld) [#/Vol] 382 10*3/uL 150-450 [facility] Serum or plasma albumin luis urement (mass/volume)Ordered By: Андрей Cooley on 04-19-2023 Albumin [Mass/Vol] 3.3 g/dL 3.2-5.0 [facility] Serum or plasma albumin/glob ulin mass ratioOrdered By: Андрей Cooley on 04-19-2023 Albumin/Globulin [Mass ratio] 0.9 {ratio} 0.9-2.4 [facility] Serum or plasma calcium luis urement (mass/volume)Ordered By: Андрей Cooley on 04-19-2023 Calcium [Mass/Vol] 9.1 mg/dL 8.5-10.1 [facility] Serum or plasma creatinine m easurement (mass/volume)Ordered By: Андрей Cooley on 04-19-2023 Creatinine [Mass/Vol] 1.08 mg/dL 0.70-1.30 [facility] Comment on above: The validity of the calculated GFR & GFRAA in patients over 70 years has not been determined. Clinical correlation is essential. Serum or plasma urea nitroge n measurement (mass/volume)Ordered By: Андрей Cooley on 04-19-2023 Urea nitrogen [Mass/Vol] 24 mg/dL 7-18 [facility] Thin prep Papanicolaou smear with manual screeningOrdered By: Андрей Cooley on 04-19-2023 Thin prep Papanicolaou smear with manual screening 19 U/L 15-37 [facility] Thin prep Papanicolaou smear with manual screening 6 5-15 [facility] Whole blood hemoglobin A1c/t otal hemoglobin ratio (mass fraction)Ordered By: Андрей Cooley on 04-17-2023 HbA1c (Bld) [Mass fraction] 5.2 % 3.8-5.6 [facility] Comment on above: Normal < 5.7 % Predi abetic 5.7 - 6.4 % Diabetic >or= 6.5 % Please note range changes. Basophil percentageOrdered B y: Андрей Cooley on 04-12-2023 Basophil percentage 92 mg/dL 74-106 [facility] Basophil percentage 6.4 g/dL 6.4-8.2 [facility] Basophil percentage 0.10 mg/dL 0.20-1.00 [facility] Basophil percentage 139 mmol/L 136-145 [facility] Basophil percentage 4.1 mmol/L 3.5-5.1 [facility] Basophil percentage 107 mmol/L 98-107 [facility] Basophils (Bld) [#/Vol] 7.8 10*3/uL 4.4-11.0 [facility] Bilirubin [Mass/Vol] 0.10 mg/dL 0.20-1.00 [facility] Comment on above: For patients on eltr ombopag therapy, use of [place] TBIL is not recommended. Chloride [Moles/Vol] 107 mmol/L 98-107 [facility] Glucose [Mass/Vol] 92 mg/dL 74-106 [facility] Potassium [Moles/Vol] 4.1 mmol/L 3.5-5.1 [facility] Protein [Mass/Vol] 6.4 g/dL 6.4-8.2 [facility] Sodium [Moles/Vol] 139 mmol/L 136-145 [facility] WBC (Bld) [#/Vol] 7.8 10*3/uL 4.4-11.0 [facility] Blood erythrocytes count (nu mber/volume)Ordered By: Андрей Cooley on 04-12-2023 RBC (Bld) [#/Vol] 4.04 10*6/uL 4.6-6.2 [facility] Blood hemoglobin measurement (mass/volume)Ordered By: Андрей Cooley on 04-12-2023 Hemoglobin (Bld) [Mass/Vol] 13.2 g/dL 13.0-16.5 [facility] Blood platelet mean volumeOr dered By: Андрей Cooley on 04-12-2023 Platelet mean volume (Bld) [Entitic vol] 9.7 fL 6.2-12.0 [facility] Determination of erythrocyte mean corpuscular volume (MCV)Ordered By: Андрей Cooley on 04-12-2023 MCV (RBC) [Entitic vol] 97.5 fL 80-94 [facility] Hematocrit Auto (Bld) [Volum e fraction]Ordered By: Андрей Cooley on 04-12-2023 Hematocrit (Bld) [Volume fraction] 39.4 % 40-54 [facility] - Chemistry and C hemistry - challengeOrdered By: Андрей Cooley on 04-12-2023 ALP [Catalytic activity/Vol] 88 U/L 45-117 [facility] ALT [Catalytic activity/Vol] 32 U/L 16-61 [facility] CO2 [Moles/Vol] 26.0 mmol/L 21.0-32.0 [facility] Globulin (S) [Mass/Vol] 3.4 g/dL 2.2-4.2 [facility] Urea nitrogen/Creatinine [Mass ratio] 20.2 mg/mg 10 [facility] - Hematology and Cell countsOrdered By: Андрей Cooley on 04-12-2023 Erythrocyte distribution width (RBC) [Entitic vol] 49.3 fL 35.1-43.9 [facility] Erythrocyte distribution width (RBC) [Ratio] 13.8 % 11.6-14.6 [facility] MCH (RBC) [Entitic mass] 32.7 pg 27.0-32.0 [facility] MCHC Auto (RBC) [Mass/Vol]Or dered By: Андрей Cooley on 04-12-2023 MCHC (RBC) [Mass/Vol] 33.5 g/dL 32-36 [facility] No Panel InformationOrdered By: Андрей Cooley on 04-12-2023 Estimated GFR (MDRD) Amer 77 mL/min >60 [facility] Comment on above: GFR Calc Estimated GFR (MDRD) Non-Af Amer 64 mL/min >60 [facility] Comment on above: Non- GFR Calc 32.7 pg 27.0-32.0 [facility] 13.8 % 11.6-14.6 [facility] 49.3 fl 35.1-43.9 [facility] 64 mL/min >60 [facility] 77 mL/min >60 [facility] 20.2 RATIO 10-20 [facility] 3.4 g/dL 2.2-4.2 [facility] 88 U/L 45-117 [facility] 32 U/L 16-61 [facility] 26.0 mmol/L 21.0-32.0 [facility] Platelets bldOrdered By: Italia Cooley on 04-12-2023 Platelets (Bld) [#/Vol] 385 10*3/uL 150-450 [facility] Serum or plasma albumin luis urement (mass/volume)Ordered By: Андрей Cooley on 04-12-2023 Albumin [Mass/Vol] 3.0 g/dL 3.2-5.0 [facility] Serum or plasma albumin/glob ulin mass ratioOrdered By: нАдрей Cooley on 04-12-2023 Albumin/Globulin [Mass ratio] 0.9 {ratio} 0.9-2.4 [facility] Serum or plasma calcium luis urement (mass/volume)Ordered By: Андрей Cooley on 04-12-2023 Calcium [Mass/Vol] 8.7 mg/dL 8.5-10.1 [facility] Serum or plasma creatinine m easurement (mass/volume)Ordered By: Андрей Cooley on 04-12-2023 Creatinine [Mass/Vol] 1.19 mg/dL 0.70-1.30 [facility] Comment on above: The validity of the calculated GFR & GFRAA in patients over 70 years has not been determined. Clinical correlation is essential. Serum or plasma urea nitroge n measurement (mass/volume)Ordered By: Андрей Cooley on 04-12-2023 Urea nitrogen [Mass/Vol] 24 mg/dL 7-18 [facility] Thin prep Papanicolaou smear with manual screeningOrdered By: Андрей Cooley on 04-12-2023 Thin prep Papanicolaou smear with manual screening 21 U/L 15-37 [facility] Thin prep Papanicolaou smear with manual screening 6 5-15 [facility] Basophil percentageOrdered B y: Андрей Cooley on 04-05-2023 Basophil percentage 105 mg/dL 74-106 [facility] Basophil percentage 6.7 g/dL 6.4-8.2 [facility] Basophil percentage 0.20 mg/dL 0.20-1.00 [facility] Basophil percentage 139 mmol/L 136-145 [facility] Basophil percentage 3.9 mmol/L 3.5-5.1 [facility] Basophil percentage 105 mmol/L 98-107 [facility] Basophils (Bld) [#/Vol] 5.8 10*3/uL 4.4-11.0 [facility] Bilirubin [Mass/Vol] 0.20 mg/dL 0.20-1.00 [facility] Comment on above: For patients on eltr ombopag therapy, use of [place] TBIL is not recommended. Chloride [Moles/Vol] 105 mmol/L 98-107 [facility] Glucose [Mass/Vol] 105 mg/dL 74-106 [facility] Comment on above: Fasting Glucose resu lt from 100 to 125 mg/dL suggests IMPAIRED HOMEOSTASIS per A.D.A. criteria. Potassium [Moles/Vol] 3.9 mmol/L 3.5-5.1 [facility] Protein [Mass/Vol] 6.7 g/dL 6.4-8.2 [facility] Sodium [Moles/Vol] 139 mmol/L 136-145 [facility] WBC (Bld) [#/Vol] 5.8 10*3/uL 4.4-11.0 [facility] Blood erythrocytes count (nu mber/volume)Ordered By: Андрей Cooley on 04-05-2023 RBC (Bld) [#/Vol] 4.40 10*6/uL 4.6-6.2 [facility] Blood hemoglobin measurement (mass/volume)Ordered By: Андрей Cooley on 04-05-2023 Hemoglobin (Bld) [Mass/Vol] 13.9 g/dL 13.0-16.5 [facility] Blood platelet mean volumeOr dered By: Андрей Cooley on 04-05-2023 Platelet mean volume (Bld) [Entitic vol] 9.5 fL 6.2-12.0 [facility] Determination of erythrocyte mean corpuscular volume (MCV)Ordered By: Андрей Cooley on 04-05-2023 MCV (RBC) [Entitic vol] 96.8 fL 80-94 [facility] Hematocrit Auto (Bld) [Volum e fraction]Ordered By: Андрей Cooley on 04-05-2023 Hematocrit (Bld) [Volume fraction] 42.6 % 40-54 [facility] - Chemistry and C hemistry - challengeOrdered By: Андрей Cooley on 04-05-2023 ALP [Catalytic activity/Vol] 60 U/L 45- [facility] ALT [Catalytic activity/Vol] 54 U/L [facility] CO2 [Moles/Vol] 28.0 mmol/L 21.0-32.0 [facility] Globulin (S) [Mass/Vol] 3.8 g/dL 2.2-4.2 [facility] Urea nitrogen/Creatinine [Mass ratio] 22.0 mg/mg 04-07 [facility] - Hematology and Cell countsOrdered By: Андрей Cooley on 04-05-2023 Erythrocyte distribution width (RBC) [Entitic vol] 50.1 fL 35.1-43.9 [facility] Erythrocyte distribution width (RBC) [Ratio] 14.0 % 11.6-14.6 [facility] MCH (RBC) [Entitic mass] 31.6 pg 27.0-32.0 [facility] MCHC Auto (RBC) [Mass/Vol]Or dered By: Андрей Cooley on 04-05-2023 MCHC (RBC) [Mass/Vol] 32.6 g/dL 32-36 [facility] No Panel InformationOrdered By: Андрей Cooley on 04-05-2023 Estimated GFR (MDRD) Amer 85 mL/min >60 [facility] Comment on above: GFR Calc Estimated GFR (MDRD) Non-Af Amer 70 mL/min >60 [facility] Comment on above: Non- GFR Calc 31.6 pg 27.0-32.0 [facility] 14.0 % 11.6-14.6 [facility] 50.1 fl 35.1-43.9 [facility] 70 mL/min >60 [facility] 85 mL/min >60 [facility] 22.0 RATIO 04-07 [facility] 3.8 g/dL 2.2-4.2 [facility] 60 U/L 45-117 [facility] 54 U/L [facility] 28.0 mmol/L 21.0-32.0 [facility] Platelets bldOrdered By: Italia Cooley on 04-05-2023 Platelets (Bld) [#/Vol] 399 10*3/uL 150-450 [facility] Serum or plasma albumin luis urement (mass/volume)Ordered By: Андрей Cooley on 04-05-2023 Albumin [Mass/Vol] 2.9 g/dL 3.2-5.0 [facility] Serum or plasma albumin/glob ulin mass ratioOrdered By: Андрей Cooley on 04-05-2023 Albumin/Globulin [Mass ratio] 0.8 {ratio} 0.9-2.4 [facility] Serum or plasma calcium luis urement (mass/volume)Ordered By: Андрей Cooley on 04-05-2023 Calcium [Mass/Vol] 9.3 mg/dL 8.5-10.1 [facility] Serum or plasma creatinine m easurement (mass/volume)Ordered By: Андрей Cooley on 04-05-2023 Creatinine [Mass/Vol] 1.09 mg/dL 0.70-1.30 [facility] Comment on above: The validity of the calculated GFR & GFRAA in patients over 70 years has not been determined. Clinical correlation is essential. Serum or plasma urea nitroge n measurement (mass/volume)Ordered By: Андрей Cooley on 04-05-2023 Urea nitrogen [Mass/Vol] 24 mg/dL 7-18 [facility] Thin prep Papanicolaou smear with manual screeningOrdered By: Андрей Cooley on 04-05-2023 Thin prep Papanicolaou smear with manual screening 38 U/L 15-37 [facility] Thin prep Papanicolaou smear with manual screening 6 5-15 [facility] Absolute lymphocyte countOrd ered By: Frankie Galindo on 04-04-2023 Lymphocytes Auto (Unsp spec) [#/Vol] 1.49 10*3/uL 0.83-4.51 [facility] Basophil percentageOrdered B y: Frankie Galindo on 04-04-2023 Basophil percentage 101 mg/dL 74-106 [facility] Basophil percentage 136 mmol/L 136-145 [facility] Basophil percentage 3.9 mmol/L 3.5-5.1 [facility] Basophil percentage 103 mmol/L 98-107 [facility] Basophils (Bld) [#/Vol] 6.3 10*3/uL 4.4-11.0 [facility] Basophils (Bld) [#/Vol] 4.1 10*3/uL 2.0-7.7 [facility] Basophils/100 WBC (Bld) 1.1 % 0-1 [facility] Basophils/100 WBC (Bld) 64.4 % 47-70 [facility] Basophils/100 WBC (Bld) 3.3 % 0-5 [facility] Chloride [Moles/Vol] 103 mmol/L 98-107 [facility] Eosinophils/100 WBC (Bld) 3.3 % 0-5 [facility] Glucose [Mass/Vol] 101 mg/dL 74-106 [facility] Comment on above: Fasting Glucose resu lt from 100 to 125 mg/dL suggests IMPAIRED HOMEOSTASIS per A.D.A. criteria. Neutrophils (Bld) [#/Vol] 4.1 10*3/uL 2.0-7.7 [facility] Neutrophils/100 WBC (Bld) 64.4 % 47-70 [facility] Potassium [Moles/Vol] 3.9 mmol/L 3.5-5.1 [facility] Sodium [Moles/Vol] 136 mmol/L 136-145 [facility] WBC (Bld) [#/Vol] 6.3 10*3/uL 4.4-11.0 [facility] Blood erythrocytes count (nu mber/volume)Ordered By: Frankie Galindo on 04-04-2023 RBC (Bld) [#/Vol] 4.82 10*6/uL 4.6-6.2 [facility] Blood hemoglobin measurement (mass/volume)Ordered By: Frankie Galindo on 04-04-2023 Hemoglobin (Bld) [Mass/Vol] 15.1 g/dL 13.0-16.5 [facility] Blood lymphocytes/100 leukoc ytesOrdered By: Frankie Galindo on 04-04-2023 Lymphocytes/100 WBC (Bld) 23.6 % 19-41 [facility] Blood monocytes/100 leukocyt esOrdered By: Frankie Galindo on 04-04-2023 Monocytes/100 WBC (Bld) 6.3 % 0-10 [facility] Blood platelet mean volumeOr dered By: Frankie Galindo on 04-04-2023 Platelet mean volume (Bld) [Entitic vol] 9.3 fL 6.2-12.0 [facility] Determination of erythrocyte mean corpuscular volume (MCV)Ordered By: Frankie Galindo on 04-04-2023 MCV (RBC) [Entitic vol] 96.7 fL 80-94 [facility] Hematocrit Auto (Bld) [Volum e fraction]Ordered By: Frankie Galindo on 04-04-2023 Hematocrit (Bld) [Volume fraction] 46.6 % 40-54 [facility] - Chemistry and C hemistry - challengeOrdered By: Frankie Galindo on 04-04-2023 CO2 [Moles/Vol] 29.0 mmol/L 21.0-32.0 [facility] Urea nitrogen/Creatinine [Mass ratio] 20.3 mg/mg 10-20 [facility] - Hematology and Cell countsOrdered By: Frankie Galindo on 04-04-2023 Erythrocyte distribution width (RBC) [Entitic vol] 48.9 fL 35.1-43.9 [facility] Erythrocyte distribution width (RBC) [Ratio] 13.6 % 11.6-14.6 [facility] Immature granulocytes/100 WBC (Bld) 1.300 % 0.0-0.9 [facility] Comment on above: IG% - Immature Granu locytes (promyelocytes, myelocytes and metamyelocytes) > 1% indicates that a LEFT SHIFT is Present. MCH (RBC) [Entitic mass] 31.3 pg 27.0-32.0 [facility] Nucleated RBC/100 WBC (Bld) [Ratio] 0 % 0-5 [facility] MCHC Auto (RBC) [Mass/Vol]Or dered By: Frankie Galindo on 04-04-2023 MCHC (RBC) [Mass/Vol] 32.4 g/dL 32-36 [facility] No Panel InformationOrdered By: Frankie Galindo on 04-04-2023 Estimated Creatinine Clearance Calc 45.80 ml/min [facility] Estimated GFR (MDRD) Amer 71 mL/min >60 [facility] Comment on above: GFR Calc Estimated GFR (MDRD) Non-Af Amer 58 mL/min >60 [facility] Comment on above: Non- GFR Calc 31.3 pg 27.0-32.0 [facility] 13.6 % 11.6-14.6 [facility] 48.9 fl 35.1-43.9 [facility] 1.300 % 0.0-0.9 [facility] 0 % 0-5 [facility] 58 mL/min >60 [facility] 71 mL/min >60 [facility] 45.80 ml/min [facility] 20.3 RATIO 10-20 [facility] 29.0 mmol/L 21.0-32.0 [facility] Platelets bldOrdered By: Sebastien Galindo on 04-04-2023 Platelets (Bld) [#/Vol] 379 10*3/uL 150-450 [facility] Serum or plasma calcium luis urement (mass/volume)Ordered By: Frankie Galindo on 04-04-2023 Calcium [Mass/Vol] 9.7 mg/dL 8.5-10.1 [facility] Serum or plasma creatinine m easurement (mass/volume)Ordered By: Frankie Galindo on 04-04-2023 Creatinine [Mass/Vol] 1.28 mg/dL 0.70-1.30 [facility] Comment on above: The validity of the calculated GFR & GFRAA in patients over 70 years has not been determined. Clinical correlation is essential. Serum or plasma urea nitroge n measurement (mass/volume)Ordered By: Frankie Galindo on 04-04-2023 Urea nitrogen [Mass/Vol] 26 mg/dL 7-18 [facility] Thin prep Papanicolaou smear with manual screeningOrdered By: Frankie Galindo on 04-04-2023 Thin prep Papanicolaou smear with manual screening 4 - [facility] Basophil percentageOrdered B y: Frankie Galindo on 04-02-2023 Basophil percentage 2.6 mg/dL 2.5-4.9 [facility] Laboratory - Chemistry and C hemistry - challengeOrdered By: Frankie Galindo on 04-02-2023 Magnesium [Mass/Vol] 2.0 mg/dL 1.6-2.6 [facility] No Panel InformationOrdered By: Frankie Galindo on 04-02-2023 2.0 mg/dL 1.6-2.6 [facility] Basophil percentageOrdered B y: Celia Toribio on 04-01-2023 Basophil percentage 6.5 g/dL 6.4-8.2 [facility] Basophil percentage 0.30 mg/dL 0.20-1.00 [facility] Bilirubin [Mass/Vol] 0.30 mg/dL 0.20-1.00 [facility] Comment on above: For patients on eltr ombopag therapy, use of Dimension [place] TBIL is not recommended. Protein [Mass/Vol] 6.5 g/dL 6.4-8.2 [facility] Laboratory - Chemistry and C hemistry - challengeOrdered By: Celia Toribio on 04-01-2023 ALP [Catalytic activity/Vol] 57 U/L [facility] ALT [Catalytic activity/Vol] 21 U/L [facility] Globulin (S) [Mass/Vol] 3.9 g/dL 2.2-4.2 [facility] No Panel InformationOrdered By: Celia Toribio on 04-01-2023 3.9 g/dL 2.2-4.2 [facility] 57 U/L [facility] 21 U/L [facility] Serum or plasma albumin luis urement (mass/volume)Ordered By: Celia Toribio on 04-01-2023 Albumin [Mass/Vol] 2.6 g/dL 3.2-5.0 [facility] Serum or plasma albumin/glob ulin mass ratioOrdered By: Celia Toribio on 04-01-2023 Albumin/Globulin [Mass ratio] 0.7 {ratio} 0.9-2.4 [facility] Thin prep Papanicolaou smear with manual screeningOrdered By: Celia Toribio on 04-01-2023 Thin prep Papanicolaou smear with manual screening 12 U/L 15 [facility] Absolute lymphocyte countOrd ered By: Huber Alvarado on 03-30-2023 Lymphocytes Auto (Unsp spec) [#/Vol] 0.93 10*3/uL 0.83-4.51 [facility] Bacteria identified Cx Nom ( U)Ordered By: Huber Alvarado on 03-30-2023 Culture, urine ESBL Escherichia coli [facility] Basophil percentageOrdered B y: Huber Alvarado on 03-30-2023 Basophil percentage 1.4 mmol/L 0.4-2.0 [facility] Lactate [Moles/Vol] 1.4 mmol/L 0.4-2.0 [facility] Basophil percentage 25-50 SEEN /hpf 0-5 [facility] Basophils/100 WBC (Bld) 0.7 % 0-1 [facility] Chloride [Moles/Vol] 99 mmol/L 98-107 [facility] Eosinophils/100 WBC (Bld) 0.0 % 0-5 [facility] Glucose [Mass/Vol] 104 mg/dL 74-106 [facility] Comment on above: Fasting Glucose resu lt from 100 to 125 mg/dL suggests IMPAIRED HOMEOSTASIS per A.D.A. criteria. Neutrophils (Bld) [#/Vol] 7.9 10*3/uL 2.0-7.7 [facility] Neutrophils/100 WBC (Bld) 79.2 % 47-70 [facility] Potassium [Moles/Vol] 4.0 mmol/L 3.5-5.1 [facility] Sodium [Moles/Vol] 134 mmol/L 136-145 [facility] WBC (Bld) [#/Vol] 10.0 10*3/uL 4.4-11.0 [facility] Bilirubin Test strip Ql (U)O rdered By: Huber Alvarado on 03-30-2023 Bilirubin Ql (U) Negative Negative [facility] Blood erythrocytes count (nu mber/volume)Ordered By: Huber Alvarado on 03-30-2023 RBC (Bld) [#/Vol] 4.81 10*6/uL 4.6-6.2 [facility] Blood hemoglobin measurement (mass/volume)Ordered By: Hbuer Alvarado on 03-30-2023 Hemoglobin (Bld) [Mass/Vol] 15.4 g/dL 13.0-16.5 [facility] Blood lymphocytes/100 leukoc ytesOrdered By: Huber Alvarado on 03-30-2023 Lymphocytes/100 WBC (Bld) 9.3 % 19-41 [facility] Blood monocytes/100 leukocyt esOrdered By: Huber Alvarado on 03-30-2023 Monocytes/100 WBC (Bld) 10.5 % 0-10 [facility] Blood platelet mean volumeOr dered By: Huber Alvarado on 03-30-2023 Platelet mean volume (Bld) [Entitic vol] 9.8 fL 6.2-12.0 [facility] Culture, urineOrdered By: Baldo Chan on 03-30-2023 Bacteria identified Cx Nom (U) ESBL Escherichia coli [facility] Bacteria identified Cx Nom (U) ESBL Escherichia coli [facility] Determination of erythrocyte mean corpuscular volume (MCV)Ordered By: Huber Alvarado on 03-30-2023 MCV (RBC) [Entitic vol] 97.5 fL 80-94 [facility] Hematocrit Auto (Bld) [Volum e fraction]Ordered By: Huber Alvarado on 03-30-2023 Hematocrit (Bld) [Volume fraction] 46.9 % 40-54 [facility] Ketones Test strip Ql (U)Ord ered By: Huber Alvarado on 03-30-2023 Ketones Ql (U) Negative Negative [facility] - Chemistry and C hemistry - challengeOrdered By: Huber Alvarado on 03-30-2023 CO2 [Moles/Vol] 31.0 mmol/L 21.0-32.0 [facility] Urea nitrogen/Creatinine [Mass ratio] 16.0 mg/mg 10-20 [facility] - Hematology and Cell countsOrdered By: Huber Alvarado on 03-30-2023 Erythrocyte distribution width (RBC) [Entitic vol] 50.3 fL 35.1-43.9 [facility] Erythrocyte distribution width (RBC) [Ratio] 13.9 % 11.6-14.6 [facility] Immature granulocytes/100 WBC (Bld) 0.300 % 0.0-0.9 [facility] Comment on above: IG% - Immature Granu locytes (promyelocytes, myelocytes and metamyelocytes) > 1% indicates that a LEFT SHIFT is Present. MCH (RBC) [Entitic mass] 32.0 pg 27.0-32.0 [facility] Nucleated RBC/100 WBC (Bld) [Ratio] 0 % 0-5 [facility] - Microbiology an d Antimicrobial susceptibilityOrdered By: Huber Alvarado on 03-30-2023 Bacteria identified Cx Nom (Bld) No growth in 5 days. [facility] MCHC Auto (RBC) [Mass/Vol]Or dered By: Huber Alvarado on 03-30-2023 MCHC (RBC) [Mass/Vol] 32.8 g/dL 32-36 [facility] Mucus LM Ql (Urine sed)Order ed By: Huber Alvarado on 03-30-2023 Mucus Ql (Urine sed) 0 SEEN /hpf [facility] Nitrite Test strip Ql (U)Ord ered By: Huber Alvarado on 03-30-2023 Nitrite Ql (U) Negative Negative [facility] No Panel InformationOrdered By: Huber Alvarado on 03-30-2023 No growth in 5 days. [facility] Estimated GFR (MDRD) Amer 77 mL/min >60 [facility] Comment on above: GFR Calc Estimated GFR (MDRD) Non-Af Amer 64 mL/min >60 [facility] Comment on above: Non- GFR Calc Platelets bldOrdered By: Beck Alvarado on 03-30-2023 Platelets (Bld) [#/Vol] 276 10*3/uL 150-450 [facility] Protein Test strip Ql (U)Ord ered By: Huber Alvarado on 03-30-2023 Protein Ql (U) 100 mg/dl Negative [facility] Serum or plasma calcium luis urement (mass/volume)Ordered By: Huber Alvarado on 03-30-2023 Calcium [Mass/Vol] 9.8 mg/dL 8.5-10.1 [facility] Serum or plasma creatinine m easurement (mass/volume)Ordered By: Huber Alvarado on 03-30-2023 Creatinine [Mass/Vol] 1.19 mg/dL 0.70-1.30 [facility] Comment on above: The validity of the calculated GFR & GFRAA in patients over 70 years has not been determined. Clinical correlation is essential. Serum or plasma urea nitroge n measurement (mass/volume)Ordered By: Huber Alvarado on 03-30-2023 Urea nitrogen [Mass/Vol] 19 mg/dL 7-18 [facility] Squamous epithelial cells de tection in urine sediment by light microscopyOrdered By: Huber Alvarado on 03-30-2023 Epithelial cells.squamous LM Ql (Urine sed) 0-5 SEEN /hpf 0-5 [facility] Thin prep Papanicolaou smear with manual screeningOrdered By: Huber Alvarado on 03-30-2023 Thin prep Papanicolaou smear with manual screening 4 5-15 [facility] Urine blood detectionOrdered By: Huber Alvarado on 03-30-2023 RBC Ql (U) 50 /ul Negative [facility] RBC Ql (U) 0 SEEN /hpf 0-5 [facility] Urine clarityOrdered By: Beck Alvarado on 03-30-2023 Clarity (U) Sl. Cloudy Clear [facility] Urine color determinationOrd ered By: Huber Alvarado on 03-30-2023 Color (U) Yellow Yellow [facility] Urine glucose detectionOrder ed By: Huber Alvarado on 03-30-2023 Glucose Ql (U) Normal mg/dl Normal [facility] Urine leukocyte esterase det ection by dipstickOrdered By: Huber Alvarado on 03-30-2023 Leukocyte esterase Test strip Ql (U) 500 /ul Negative [facility] Urine pHOrdered By: Huber billingsley on 03-30-2023 pH (U) 6.0 [pH] 5.0 - 8.0 [facility] Urine sediment bacteria coun t by microscopy (number/high power field)Ordered By: Huber Alvarado on 03-30-2023 Bacteria LM.HPF (Urine sed) [#/Area] 3 /[HPF] None Seen [facility] Urine specific gravity measu rementOrdered By: Huber Alvarado on 03-30-2023 Specific gravity (U) [Rel density] 1.020 1.002-1.030 [facility] Urobilinogen Auto test strip Ql (U)Ordered By: Huber Alvarado on 03-30-2023 Urobilinogen Ql (U) Normal mg/dl Normal [facility] INR in Blood by Coagulation assayOrdered By: Jaden Jauregui on 02-18-2023 INR Coag (Bld) [Relative time] 0.9 {INR} [facility] - CoagulationOrde red By: Jaden Jauregui on 02-18-2023 PT Coag (PPP) [Time] 12.4 s 11.7-14.[address] [facility] [address] ABD/PELVIS W/ IV CONTRAST ONLYon 10-23-2022 [...] 10/22/2022 10:33:36 PM Ordering Provider: PRIYANKA Betts [facility] ([place]) .Auto Diffon 10-22-2022 Basophil, Absolute 0.1 10 3/mcL Normal 0.0-0.2 [facility] ([place]) Comment on above: Performed By: #### A DIFF, LIP, MDW, CMP, GFR, ANEU, CBC #### [address] [address] Basophils/100 WBC (Bld) 0.8 % Normal 0.0-2.5 [facility] ([place]) Comment on above: Performed By: #### A DIFF, LIP, MDW, CMP, GFR, ANEU, CBC #### [address] [address] Eosinophil, Absolute 0.0 10 3/mcL Normal 0.0-0.4 [facility] ([place]) Comment on above: Performed By: #### A DIFF, LIP, MDW, CMP, GFR, ANEU, CBC #### [address] [address] Eosinophils/100 WBC (Bld) 0.3 % Normal 0.0-7.0 [facility] ([place]) Comment on above: Performed By: #### A DIFF, LIP, MDW, CMP, GFR, ANEU, CBC #### [address] [address] Lymphocyte, Absolute 0.9 10 3/mcL Normal 0.8-3.9 [facility]) Comment on above: Performed By: #### A DIFF, LIP, MDW, CMP, GFR, ANEU, CBC #### [address] [address] Lymphocytes/100 WBC (Bld) 8.1 % Low 10.0-50.0 [facility] ([place]) Comment on above: Performed By: #### A DIFF, LIP, MDW, CMP, GFR, ANEU, CBC #### [address] [address] Monocyte, Absolute 0.7 10 3/mcL Normal 0.2-1.0 [facility] ([place]) Comment on above: Performed By: #### A DIFF, LIP, MDW, CMP, GFR, ANEU, CBC #### [address] [address] Monocytes/100 WBC (Bld) 6.8 % Normal 1.7-13.0 [facility] ([place]) Comment on above: Performed By: #### A DIFF, LIP, MDW, CMP, GFR, ANEU, CBC #### [address] [address] Neutrophils/100 WBC (Bld) 84.0 % High 37.0-80.0 [facility] ([place]) Comment on above: Performed By: #### A DIFF, LIP, MDW, CMP, GFR, ANEU, CBC #### [address] [address] .GFRon 10-22-2022 GFR Non- 58 ml/min/1.73sqm Normal [facility] ([place]) Comment on above: Result Comment: GFR Population [...] LIP, MDW, CMP, GFR, ANEU, CBC #### [address] [address] GFR 71 ml/min/1.73sqm Normal [facility] ([place]) Comment on above: Result Comment: GFR Population [...] LIP, MDW, CMP, GFR, ANEU, CBC #### [address] [address] .MDWon 10-22-2022 Monocyte Distribution Width 24.33 High 0.00-20.00 [facility] ([place]) Comment on above: Result Comment: For adults in ED, MDW>20.0 may be associated with a higher risk of sepsis during the first 12hrs of hospital admission Performed By: #### A DIFF, LIP, MDW, CMP, GFR, ANEU, CBC #### [address] [address] .NEUABSon 10-22-2022 Neutrophil, Absolute 8.9 10 3/mcL High 2.9-6.2 [facility] [place]) Comment on above: Performed By: #### A DIFF, LIP, MDW, CMP, GFR, ANEU, CBC #### [address] [address] CBCon 10-22-2022 Erythrocyte distribution width (RBC) [Ratio] 14.0 % Normal 11.5-14.5 [facility] ([place]) Comment on above: Performed By: #### A DIFF, LIP, MDW, CMP, GFR, ANEU, CBC #### [address] [address] Hematocrit (Bld) [Volume fraction] 38.9 % Low 42.0-52.0 [facility] ([place]) Comment on above: Performed By: #### A DIFF, LIP, MDW, CMP, GFR, ANEU, CBC #### [address] [address] Hgb 13.5 G/dL Low 14.0-18.0 [facility] ([place]) Comment on above: Performed By: #### A DIFF, LIP, MDW, CMP, GFR, ANEU, CBC #### [place] [address] MCH (RBC) [Entitic mass] 33.0 pg High 27.0-31.2 [facility] ([place]) Comment on above: Performed By: #### A DIFF, LIP, MDW, CMP, GFR, ANEU, CBC #### [place] [address] MCHC 34.8 G/dL Normal 31.8-35.4 [facility] ([place]) Comment on above: Performed By: #### A DIFF, LIP, MDW, CMP, GFR, ANEU, CBC #### [place] [address] MCV (RBC) [Entitic vol] 95.0 fL High 80.0-94.0 [facility] ([place]) Comment on above: Performed By: #### A DIFF, LIP, MDW, CMP, GFR, ANEU, CBC #### [place] [address] Platelet 344 10 3/mcL Normal 130-400 [facility] ([place]) Comment on above: Performed By: #### A DIFF, LIP, MDW, CMP, GFR, ANEU, CBC #### [address] [address] Platelet mean volume (Bld) [Entitic vol] 7.1 fL Low 7.4-10.4 [facility] ([place]) Comment on above: Performed By: #### A DIFF, LIP, MDW, CMP, GFR, ANEU, CBC #### [address] [address] RBC 4.10 10 6/mcL Normal 4.04-6.13 [facility] ([place]) Comment on above: Performed By: #### A DIFF, LIP, MDW, CMP, GFR, ANEU, CBC #### [address] [address] WBC 10.6 10 3/mcL Normal 4.6-10.8 [facility] ([place]) Comment on above: Performed By: #### A DIFF, LIP, MDW, CMP, GFR, ANEU, CBC #### [address] [address] CMPon 10-22-2022 Albumin Level 2.9 G/dL Low 3.4-4.8 [facility] ([place]) Comment on above: Performed By: #### A DIFF, LIP, MDW, CMP, GFR, ANEU, CBC #### [address] [address] Albumin/Globulin [Mass ratio] 0.8 {ratio} Low 1.1-2.5 [facility] ([place]) Comment on above: Performed By: #### A DIFF, LIP, MDW, CMP, GFR, ANEU, CBC #### [address] [address] ALP [Catalytic activity/Vol] 98 U/L Normal 40-135 [facility] ([place]) Comment on above: Performed By: #### A DIFF, LIP, MDW, CMP, GFR, ANEU, CBC #### [address] [address] ALT [Catalytic activity/Vol] 46 U/L Normal 16-63 [facility] ([place]) Comment on above: Performed By: #### A DIFF, LIP, MDW, CMP, GFR, ANEU, CBC #### [address] [address] AST [Catalytic activity/Vol] 29 U/L Normal 10-40 [facility] ([place]) Comment on above: Performed By: #### A DIFF, LIP, MDW, CMP, GFR, ANEU, CBC #### [address] [address] Bili Total 0.3 mg/dL Normal 0.2-1.0 [facility] ([place]) Comment on above: Result Comment: Use of this assay is not recommended for patients undergoing treatment with eltrombopag due to the potential for falsely elevated results. Performed By: #### A DIFF, LIP, MDW, CMP, GFR, ANEU, CBC #### [address] [address] BUN/Creatinine Ratio 17 ratio Normal 7-27 [facility] ([place]) Comment on above: Performed By: #### A DIFF, LIP, MDW, CMP, GFR, ANEU, CBC #### [address] [address] Calcium [Mass/Vol] 9.2 mg/dL Normal 8.4-10.2 [facility] ([place]) Comment on above: Performed By: #### A DIFF, LIP, MDW, CMP, GFR, ANEU, CBC #### [address] [address] Chloride [Moles/Vol] 96 mmol/L Low 98-107 [facility] ([place]) Comment on above: Performed By: #### A DIFF, LIP, MDW, CMP, GFR, ANEU, CBC #### [address] [address] CO2 [Moles/Vol] 33 mmol/L High 23-31 [facility] ([place]) Comment on above: Performed By: #### A DIFF, LIP, MDW, CMP, GFR, ANEU, CBC #### [address] [address] Creatinine [Mass/Vol] 1.22 mg/dL Normal 0.70-1.30 [facility] ([place]) Comment on above: Performed By: #### A DIFF, LIP, MDW, CMP, GFR, ANEU, CBC #### [address] [address] Electrolyte Balance 5.0 mEq/L Normal 4.0-15.0 [facility] ([place]) Comment on above: Performed By: #### A DIFF, LIP, MDW, CMP, GFR, ANEU, CBC #### [address] [address] Globulin 3.5 G/dL Normal [facility] ([place]) Comment on above: Performed By: #### A DIFF, LIP, MDW, CMP, GFR, ANEU, CBC #### [address] [address] Glucose [Mass/Vol] 111 mg/dL High 83-110 [facility] ([place]) Comment on above: Performed By: #### A DIFF, LIP, MDW, CMP, GFR, ANEU, CBC #### [address] [address] Potassium [Moles/Vol] 4.3 mmol/L Normal 3.5-5.1 Count includes the [facility] ([place]) Comment on above: Performed By: #### A DIFF, LIP, MDW, CMP, GFR, ANEU, CBC #### [address] [address] Sodium [Moles/Vol] 134 mmol/L Low 136-145 [facility] ([place]) Comment on above: Performed By: #### A DIFF, LIP, MDW, CMP, GFR, ANEU, CBC #### [address] [address] Total Protein 6.4 G/dL Normal 6.4-8.2 [facility] ([place]) Comment on above: Performed By: #### A DIFF, LIP, MDW, CMP, GFR, ANEU, CBC #### [address] [address] Urea nitrogen [Mass/Vol] 21 mg/dL High 7-18 [facility] ([place]) Comment on above: Performed By: #### A DIFF, LIP, MDW, CMP, GFR, ANEU, CBC #### [place] [id number] [place], [place] [address] LABORATORYOrdered By: SYSTEM SYSTEM on 10-22-2022 Albumin [...] 10-22-2022 Lipase Level 32 U/L Normal 16-77 [facility] ([place]) Comment on above: Performed By: #### A DIFF, LIP, MDW, CMP, GFR, ANEU, CBC #### [address] [address] Absolute lymphocyte countOrd ered By: Dr. Jauregui on 10-21-2022 Lymphocytes Auto (Unsp spec) [#/Vol] 0.85 10*3/uL 0.83-4.51 [facility] Basophil percentageOrdered B y: Dr. Jauregui on 10-21-2022 Basophil percentage 25-50 SEEN /hpf 0-5 [facility] Basophils/100 WBC (Bld) 0.6 % 0-1 [facility] Bilirubin [Mass/Vol] 0.30 mg/dL 0.20-1.00 [facility] Comment on above: For patients on eltr ombopag therapy, use of Dimension [place] TBIL is not recommended. Chloride [Moles/Vol] 99 mmol/L 98-107 [facility] Eosinophils/100 WBC (Bld) 0.4 % 0-5 [facility] Glucose [Mass/Vol] 104 mg/dL 74-106 [facility] Comment on above: Fasting Glucose resu lt from 100 to 125 mg/dL suggests IMPAIRED HOMEOSTASIS per A.D.A. criteria. Neutrophils (Bld) [#/Vol] 8.8 10*3/uL 2.0-7.7 [facility] Neutrophils/100 WBC (Bld) 84.2 % 47-70 [facility] Potassium [Moles/Vol] 3.6 mmol/L 3.5-5.1 [facility] Protein [Mass/Vol] 7.2 g/dL 6.4-8.2 [facility] Sodium [Moles/Vol] 135 mmol/L 136-145 [facility] WBC (Bld) [#/Vol] 10.4 10*3/uL 4.4-11.0 [facility] Bilirubin Test strip Ql (U)O rdered By: Dr. Jauregui on 10-21-2022 Bilirubin Ql (U) Negative Negative [facility] Blood erythrocytes count (nu mber/volume)Ordered By: Dr. Jauregui on 10-21-2022 RBC (Bld) [#/Vol] 4.51 10*6/uL 4.6-6.2 [facility] Blood hemoglobin measurement (mass/volume)Ordered By: Dr. Jauregui on 10-21-2022 Hemoglobin (Bld) [Mass/Vol] 14.4 g/dL 13.0-16.5 [facility] Blood lymphocytes/100 leukoc ytesOrdered By: Dr. Jauregui on 10-21-2022 Lymphocytes/100 WBC (Bld) 8.2 % 19-41 [facility] Blood monocytes/100 leukocyt esOrdered By: Dr. Jauregui on 10-21-2022 Monocytes/100 WBC (Bld) 5.4 % 0-10 [facility] Blood platelet mean volumeOr dered By: Dr. Jauregui on 10-21-2022 Platelet mean volume (Bld) [Entitic vol] 8.9 fL 6.2-12.0 [facility] Culture, urineOrdered By: Joseph Jauregui on 10-21-2022 Bacteria identified Cx Nom (U) Presumptive E. coli [facility] Determination of erythrocyte mean corpuscular volume (MCV)Ordered By: Dr. Jauregui on 10-21-2022 MCV (RBC) [Entitic vol] 95.6 fL 80-94 [facility] Hematocrit Auto (Bld) [Volum e fraction]Ordered By: Dr. Jauregui on 10-21-2022 Hematocrit (Bld) [Volume fraction] 43.1 % 40-54 [facility] Ketones Test strip Ql (U)Ord ered By: Dr. Jauregui on 10-21-2022 Ketones Ql (U) Negative Negative [facility] - Chemistry and C hemistry - challengeOrdered By: Dr. Jauregui on 10-21-2022 ALP [Catalytic activity/Vol] 84 U/L 45-117 [facility] ALT [Catalytic activity/Vol] 41 U/L 16-61 [facility] CO2 [Moles/Vol] 28.0 mmol/L 21.0-32.0 [facility] Globulin (S) [Mass/Vol] 4.2 g/dL 2.2-4.2 [facility] Lipase [Catalytic activity/Vol] 42 U/L 13-75 [facility] Comment on above: Please note:LIPASE r evised reference range effective 22. New Lipase methodology. Expected to produce lower values than the previous assay method. NEW Reference Range: 13 - 75 U/L Urea nitrogen/Creatinine [Mass ratio] 16.3 mg/mg 10-20 [facility] - Hematology and Cell countsOrdered By: Dr. Jauregui on 10-21-2022 Erythrocyte distribution width (RBC) [Entitic vol] 45.7 fL 35.1-43.9 [facility] Erythrocyte distribution width (RBC) [Ratio] 13.0 % 11.6-14.6 [facility] Immature granulocytes/100 WBC (Bld) 1.200 % 0.0-0.9 [facility] Comment on above: IG% - Immature Granu locytes (promyelocytes, myelocytes and metamyelocytes) > 1% indicates that a LEFT SHIFT is Present. MCH (RBC) [Entitic mass] 31.9 pg 27.0-32.0 [facility] Nucleated RBC/100 WBC (Bld) [Ratio] 0 % 0-5 [facility] MCHC Auto (RBC) [Mass/Vol]Or dered By: Dr. Jauregui on 10-21-2022 MCHC (RBC) [Mass/Vol] 33.4 g/dL 32-36 [facility] Mucus LM Ql (Urine sed)Order ed By: Dr. Jauregui on 10-21-2022 Mucus Ql (Urine sed) 0 SEEN /hpf [facility] Nitrite Test strip Ql (U)Ord ered By: Dr. Jauregui on 10-21-2022 Nitrite Ql (U) Negative Negative [facility] No Panel InformationOrdered By: Dr. Jauregui on 10-21-2022 Estimated GFR (MDRD) Amer 90 mL/min >60 [facility] Comment on above: GFR Calc Estimated GFR (MDRD) Non-Af Amer 74 mL/min >60 [facility] Comment on above: Non- GFR Calc Platelets bldOrdered By: Dr. Jauregui on 10-21-2022 Platelets (Bld) [#/Vol] 339 10*3/uL 150-450 [facility] Protein Test strip Ql (U)Ord ered By: Dr. Jauregui on 10-21-2022 Protein Ql (U) 100 mg/dl Negative [facility] Serum or plasma albumin luis urement (mass/volume)Ordered By: Dr. Jauregui on 10-21-2022 Albumin [Mass/Vol] 3.0 g/dL 3.2-5.0 [facility] Serum or plasma albumin/glob ulin mass ratioOrdered By: Dr. Jauregui on 10-21-2022 Albumin/Globulin [Mass ratio] 0.7 {ratio} 0.9-2.4 [facility] Serum or plasma calcium luis urement (mass/volume)Ordered By: Dr. Jauregui on 10-21-2022 Calcium [Mass/Vol] 9.8 mg/dL 8.5-10.1 [facility] Serum or plasma creatinine m easurement (mass/volume)Ordered By: Dr. Jauregui on 10-21-2022 Creatinine [Mass/Vol] 1.04 mg/dL 0.70-1.30 [facility] Comment on above: The validity of the calculated GFR & GFRAA in patients over 70 years has not been determined. Clinical correlation is essential. Serum or plasma urea nitroge n measurement (mass/volume)Ordered By: Dr. Jauregui on 10-21-2022 Urea nitrogen [Mass/Vol] 17 mg/dL 7-18 [facility] Squamous epithelial cells de tection in urine sediment by light microscopyOrdered By: Dr. Jauregui on 10-21-2022 Epithelial cells.squamous LM Ql (Urine sed) 0-5 SEEN /hpf 0-5 [facility] Thin prep Papanicolaou smear with manual screeningOrdered By: Dr. Jauregui on 10-21-2022 Thin prep Papanicolaou smear with manual screening 20 U/L 15-37 [facility] Thin prep Papanicolaou smear with manual screening 8 5-15 [facility] Urine blood detectionOrdered By: Dr. Jauregui on 10-21-2022 RBC Ql (U) 50 /ul Negative [facility] RBC Ql (U) 0 SEEN /hpf 0-5 [facility] Urine clarityOrdered By: Dr. Jauregui on 10-21-2022 Clarity (U) Sl. Cloudy Clear [facility] Urine color determinationOrd ered By: Dr. Jauregui on 10-21-2022 Color (U) Yellow Yellow [facility] Urine glucose detectionOrder ed By: Dr. Jauregui on 10-21-2022 Glucose Ql (U) Normal mg/dl Normal [facility] Urine leukocyte esterase det ection by dipstickOrdered By: Dr. Jauregui on 10-21-2022 Leukocyte esterase Test strip Ql (U) 500 /ul Negative [facility] Urine pHOrdered By: Dr. Brice ne on 10-21-2022 pH (U) 6.0 [pH] 5.0 - 8.0 [facility] Urine sediment bacteria coun t by microscopy (number/high power field)Ordered By: Dr. Jauregui on 10-21-2022 Bacteria LM.HPF (Urine sed) [#/Area] 2 /[HPF] None Seen [facility] Urine specific gravity measu rementOrdered By: Dr. Jauregui on 10-21-2022 Specific gravity (U) [Rel density] 1.010 1.002-1.030 [facility] Urobilinogen Auto test strip Ql (U)Ordered By: Dr. Jauregui on 10-21-2022 Urobilinogen Ql (U) Normal mg/dl Normal [facility] No Panel InformationOrdered By: Андрей Cooley on 08-11-2022 Miscellaneous Test See comment [facility] Comment on above: TEST RESULT LIMITSCa rbamazepine(Tegretol), S 7.1 ug/mL 4.0-12.0 In conjunction with other antiepileptic drugs Therapeutic 4.0 - 8.0 Toxicity 9.0 - 12.0 Carbamazepine alone Therapeutic 8.0 - 12.0 Detection Limit = 2.0 <2.0 indicated None Detected Verified by repeat analysis TESTING PERFORMED AT [facility]. ORIGINAL REPORT ON FILE IN LAB CONTAINS ADDITIONAL TEST SITE INFORMATION. No Panel InformationOrdered By: Андрей Cooley on 07-12-2022 Miscellaneous Test See comment [facility] Comment on above: TEST RESULT LIMITSCarbamazepine(Tegretol),SCarbamazepine(Tegretol), S 6.3 ug/mL 4.0-12.0 In conjunction with other antiepileptic drugs Therapeutic 4.0 - 8.0 Toxicity 9.0 - 12.0 Carbamazepine alone Therapeutic 8.0 - 12.0 Detection Limit = 2.0 <2.0 indicated None Detected ____ TESTING PERFORMED AT [facility]. ORIGINAL REPORT ON FILE IN LAB CONTAINS ADDITIONAL TEST SITE INFORMATION. Basophil percentageOrdered B y: Андрей Cooley on 06-14-2022 Bilirubin [Mass/Vol] 0.20 mg/dL 0.20-1.00 [facility] Comment on above: For patients on eltr ombopag therapy, use of Dimension [place] TBIL is not recommended. Chloride [Moles/Vol] 104 mmol/L 98-107 [facility] Cholesterol [Mass/Vol] 139 mg/dL <200 [facility] Comment on above: <200 mg/dL Desirable 200-240 mg/dL Borderline >240 mg/dL High Risk Glucose [Mass/Vol] 76 mg/dL 74-106 [facility] Potassium [Moles/Vol] 3.9 mmol/L 3.5-5.1 [facility] Protein [Mass/Vol] 6.4 g/dL 6.4-8.2 [facility] Sodium [Moles/Vol] 139 mmol/L 136-145 [facility] Triglyceride [Mass/Vol] 111 mg/dL <199 [facility] Comment on above: The drugs N-Acetylcy steine and Metamizole may falsely depress this assay.Serum Triglycerides Reference Interval Normal <150 mg/dL Borderline high 150 - 199 mg/dL High 200 - 499 mg/dL Very High > or = 500 mg/dL WBC (Bld) [#/Vol] 5.5 10*3/uL 4.4-11.0 [facility] Blood erythrocytes count (nu mber/volume)Ordered By: Андрей Cooley on 06-14-2022 RBC (Bld) [#/Vol] 4.57 10*6/uL 4.6-6.2 [facility] Blood hemoglobin measurement (mass/volume)Ordered By: Андрей Cooley on 06-14-2022 Hemoglobin (Bld) [Mass/Vol] 15.0 g/dL 13.0-16.5 [facility] Blood platelet mean volumeOr dered By: Андрей Cooley on 06-14-2022 Platelet mean volume (Bld) [Entitic vol] 10.0 fL 6.2-12.0 [facility] Determination of erythrocyte mean corpuscular volume (MCV)Ordered By: Андрей Cooley on 06-14-2022 MCV (RBC) [Entitic vol] 100.4 fL 80-94 [facility] Hematocrit Auto (Bld) [Volum e fraction]Ordered By: Андрей Cooley on 06-14-2022 Hematocrit (Bld) [Volume fraction] 45.9 % 40-54 [facility] Laboratory - Chemistry and C hemistry - challengeOrdered By: Андрей Cooley on 06-14-2022 ALP [Catalytic activity/Vol] 68 U/L 45-117 [facility] ALT [Catalytic activity/Vol] 31 U/L 16-61 [facility] CO2 [Moles/Vol] 31.0 mmol/L 21.0-32.0 [facility] Globulin (S) [Mass/Vol]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 Hematocrit (Bld) [Volume fraction] 38.5 % 40-54 [facility] Work Phone: INR in Blood by Coagulation assayon 12-10-2021 INR Coag (Bld) [Relative time] 1.6 {INR} [facility] Work Phone: Laboratory - Chemistry and C hemistry - challengeon 12-10-2021 CO2 [Moles/Vol] 26.0 mmol/L 21.0-32.0 [facility] Work Phone: Urea nitrogen/Creatinine [Mass ratio] 21.5 mg/mg 10-20 [facility] Work Phone: Laboratory - Coagulationon 0 12-10-2021 PT Coag (PPP) [Time] 18.3 s 11.7-14.9 [facility] Work Phone: Laboratory - Hematology and Cell countson 12-10-2021 Erythrocyte distribution width (RBC) [Entitic vol] 95.8 fL 35.1-43.9 [facility] Work Phone: [phone] Erythrocyte distribution width (RBC) [Ratio] 29.7 % 11.6-14.6 [facility] Work Phone: MCH (RBC) [Entitic mass] 27.4 pg 27.0-32.0 [facility] Work Phone: [phone] MCHC Auto (RBC) [Mass/Vol]on 12-10-2021 MCHC (RBC) [Mass/Vol] 29.9 g/dL 32-36 [facility] Work Phone: No Panel Informationon 12-10 Estimated GFR (MDRD) Amer 97 mL/min >60 [facility] Work Phone: Comment on above: GFR Calc Estimated GFR (MDRD) Non-Af Amer 80 mL/min >60 [facility] Work Phone: Comment on above: Non- GFR Calc Platelets bldon 12-10-2021 Platelets (Bld) [#/Vol] 327 10*3/uL 150-450 [facility] Work Phone: [phone] Serum or plasma calcium luis urement (mass/volume)on 12-10-2021 Calcium [Mass/Vol] 9.0 mg/dL 8.5-10.1 [facility] Work Phone: [phone] Serum or plasma creatinine m easurement (mass/volume)on 12-10-2021 Creatinine [Mass/Vol] 0.98 mg/dL 0.70-1.30 [facility] Work Phone: Comment on above: The validity of the calculated GFR & GFRAA in patients over 70 years has not been determined. Clinical correlation is essential. Serum or plasma urea nitroge n measurement (mass/volume)on 12-10-2021 Urea nitrogen [Mass/Vol] 21 mg/dL 7-18 [facility] Work Phone: [phone] Thin prep Papanicolaou smear with manual screeningon 12-10-2021 Thin prep Papanicolaou smear with manual screening 6 5-15 [facility] Work Phone: Basophil percentageon 2021 Chloride [Moles/Vol] 107 mmol/L 98-107 [facility] Work Phone: Glucose [Mass/Vol] 89 mg/dL 74-106 [facility] Work Phone: [phone] Potassium [Moles/Vol] 4.3 mmol/L 3.5-5.1 [facility] Work Phone: [phone] Sodium [Moles/Vol] 140 mmol/L 136-145 [facility] Work Phone: [phone] WBC (Bld) [#/Vol] 6.1 10*3/uL 4.4-11.0 [facility] Work Phone: Blood erythrocytes count (nu mber/volume)on 12-08-2021 RBC (Bld) [#/Vol] 3.96 10*6/uL 4.6-6.2 [facility] Work Phone: [phone] Blood hemoglobin measurement (mass/volume)on 12-08-2021 Hemoglobin (Bld) [Mass/Vol] 10.6 g/dL 13.0-16.5 [facility] Work Phone: [phone] Blood platelet mean volumeon 12-08-2021 Platelet mean volume (Bld) [Entitic vol] 10.8 fL 6.2-12.0 [facility] Work Phone: [phone] Determination of erythrocyte mean corpuscular volume (MCV)on 12-08-2021 MCV (RBC) [Entitic vol] 91.2 fL 80-94 [facility] Work Phone: [phone] Hematocrit Auto (Bld) [Volum e fraction]on 12-08-2021 Hematocrit (Bld) [Volume fraction] 36.1 % 40-54 [facility] Work Phone: INR in Blood by Coagulation assayon 12-08-2021 INR Coag (Bld) [Relative time] 1.5 {INR} [facility] Work Phone: Laboratory - Chemistry and C hemistry - challengeon 12-08-2021 CO2 [Moles/Vol] 27.0 mmol/L 21.0-32.0 [facility] Work Phone: Urea nitrogen/Creatinine [Mass ratio] 23.1 mg/mg 10-20 [facility] Work Phone: [phone] Laboratory - Coagulationon 0 12-08-2021 PT Coag (PPP) [Time] 17.5 s 11.7-14.9 [facility] Work Phone: [phone] Laboratory - Hematology and Cell countson 12-08-2021 Erythrocyte distribution width (RBC) [Entitic vol] 97.8 fL 35.1-43.9 [facility] Work Phone: [phone] Erythrocyte distribution width (RBC) [Ratio] 30.4 % 11.6-14.6 [facility] Work Phone: [phone] MCH (RBC) [Entitic mass] 26.8 pg 27.0-32.0 [facility] Work Phone: [phone] MCHC Auto (RBC) [Mass/Vol]on 12-08-2021 MCHC (RBC) [Mass/Vol] 29.4 g/dL 32-36 [facility] Work Phone: [phone] No Panel Informationon 12-08 Carbamazepine (Tegretol) Level 7.9 ug/mL 4.0-12.0 [facility] Work Phone: [phone] Estimated GFR (MDRD) Amer 90 mL/min >60 [facility] Work Phone: [phone] Comment on above: GFR Calc Estimated GFR (MDRD) Non-Af Amer 75 mL/min >60 [facility] Work Phone: [phone] Comment on above: Non- GFR Calc Platelets bldon 12-08-2021 Platelets (Bld) [#/Vol] 295 10*3/uL 150-450 [facility] Work Phone: [phone] Serum or plasma calcium luis urement (mass/volume)on 12-08-2021 Calcium [Mass/Vol] 8.8 mg/dL 8.5-10.1 [facility] Work Phone: [phone] Serum or plasma creatinine m easurement (mass/volume)on 12-08-2021 Creatinine [Mass/Vol] 1.04 mg/dL 0.70-1.30 [facility] Work Phone: Comment on above: The validity of the calculated GFR & GFRAA in patients over 70 years has not been determined. Clinical correlation is essential. Serum or plasma urea nitroge n measurement (mass/volume)on 12-08-2021 Urea nitrogen [Mass/Vol] 24 mg/dL 7-18 [facility] Work Phone: Thin prep Papanicolaou smear with manual screeningon 12-08-2021 Thin prep Papanicolaou smear with manual screening 6 5-15 [facility] Work Phone: Absolute lymphocyte counton 12-06-2021 Lymphocytes Auto (Unsp spec) [#/Vol] 1.64 10*3/uL 0.83-4.51 [facility] Work Phone: Basophil percentageon 2021 Basophils/100 WBC (Bld) 1.6 % 0-1 [facility] Work Phone: Chloride [Moles/Vol] 106 mmol/L 98-107 [facility] Work Phone: Eosinophils/100 WBC (Bld) 4.0 % 0-5 [facility] Work [phone] Glucose [Mass/Vol] 75 mg/dL 74-106 [facility] Work Phone: Neutrophils (Bld) [#/Vol] 4.5 10*3/uL 2.0-7.7 [facility] Work Phone: Neutrophils/100 WBC (Bld) 64.0 % 47-70 [facility] Work Phone: Potassium [Moles/Vol] 4.6 mmol/L 3.5-5.1 [facility] Work Phone: Sodium [Moles/Vol] 138 mmol/L 136-145 [facility] Work Phone: WBC (Bld) [#/Vol] 7.0 10*3/uL 4.4-11.0 [facility] Work Phone: Blood erythrocytes count (nu mber/volume)on 12-06-2021 RBC (Bld) [#/Vol] 3.83 10*6/uL 4.6-6.2 [facility] Work Phone: Blood hemoglobin measurement (mass/volume)on 12-06-2021 Hemoglobin (Bld) [Mass/Vol] 10.2 g/dL 13.0-16.5 [facility] Work Phone: Blood lymphocytes/100 leukoc yteson 12-06-2021 Lymphocytes/100 WBC (Bld) 23.6 % 19-41 [facility] Work Phone: Blood monocytes/100 leukocyt eson 12-06-2021 Monocytes/100 WBC (Bld) 6.5 % 0-10 [facility] Work Phone: [phone] Blood platelet adequacy dete ction by light microscopyon 12-06-2021 Platelets LM Ql (Bld) ADEQUATE ADEQ [facility] Work Phone: Blood platelet mean volumeon 12-06-2021 Platelet mean volume (Bld) [Entitic vol] 10.7 fL 6.2-12.0 [facility] Work Phone: Blood poikilocytosis detecti on by light microscopyon 12-06-2021 Poikilocytosis LM Ql (Bld) 1+ [facility] Work Phone: Determination of erythrocyte mean corpuscular volume (MCV)on 12-06-2021 MCV (RBC) [Entitic vol] 92.7 fL 80-94 [facility] Work Phone: Hematocrit Auto (Bld) [Volum e fraction]on 12-06-2021 Hematocrit (Bld) [Volume fraction] 35.5 % 40-54 [facility] Work Phone: Hypochromatic red blood cell detectionon 12-06-2021 Hypochromia Ql (Bld) 1+ [facility] Work Phone: INR in Blood by Coagulation assayon 12-06-2021 INR Coag (Bld) [Relative time] 1.2 {INR} [facility] Work Phone: Laboratory - Chemistry and C hemistry - challengeon 12-06-2021 CO2 [Moles/Vol] 25.0 mmol/L 21.0-32.0 [facility] Work Phone: Urea nitrogen/Creatinine [Mass ratio] 17.1 mg/mg 10-20 [facility] Work Phone: [phone] Laboratory - Coagulationon 0 12-06-2021 PT Coag (PPP) [Time] 14.9 s 11.7-14.9 [facility] Work Phone: [phone] Laboratory - Hematology and Cell countson 12-06-2021 Anisocytosis Ql (Bld) 4+ [facility] Work Phone: Erythrocyte distribution width (RBC) [Entitic vol] 100.5 fL 35.1-43.9 [facility] Work Phone: [phone] Erythrocyte distribution width (RBC) [Ratio] 30.6 % 11.6-14.6 [facility] Work Phone: [phone] Immature granulocytes/100 WBC (Bld) 0.300 % 0.0-0.9 [facility] Work Phone: Comment on above: IG% - Immature Granu locytes (promyelocytes, myelocytes and metamyelocytes) > 1% indicates that a LEFT SHIFT is Present. MCH (RBC) [Entitic mass] 26.6 pg 27.0-32.0 [facility] Work Phone: [phone] Nucleated RBC/100 WBC (Bld) [Ratio] 0 % 0-5 [facility] Work Phone: [phone] MCHC Auto (RBC) [Mass/Vol]on 12-06-2021 MCHC (RBC) [Mass/Vol] 28.7 g/dL 32-36 [facility] Work Phone: Macrocytes detectionon 12-06 [facility] Ql (Bld) 1+ [facility]: [phone] No Panel Informationon 12-06 Estimated GFR (MDRD) Amer 89 mL/min >60 [facility] Work Phone: Comment on above: GFR Calc Estimated GFR (MDRD) Non-Af Amer 74 mL/min >60 [facility] Work Phone: Comment on above: Non- GFR Calc Ovalocyte detectionon 2021 Ovalocytes LM Ql (Bld) 2+ [facility] Work Phone: Platelets bldon 12-06-2021 Platelets (Bld) [#/Vol] 265 10*3/uL 150-450 [facility] Work Phone: Serum or plasma calcium luis urement (mass/volume)on 12-06-2021 Calcium [Mass/Vol] 8.9 mg/dL 8.5-10.1 [facility] Work Phone: Serum or plasma creatinine m easurement (mass/volume)on 12-06-2021 Creatinine [Mass/Vol] 1.05 mg/dL 0.70-1.30 [facility] Work Phone: Comment on above: The validity of the calculated GFR & GFRAA in patients over 70 years has not been determined. Clinical correlation is essential. Serum or plasma urea nitroge n measurement (mass/volume)on 12-06-2021 Urea nitrogen [Mass/Vol] 18 mg/dL 7-18 [facility] Work Phone: Teardrop cell detectionon Dacrocytes LM Ql (Bld) 1+ [facility] Work Phone: Thin prep Papanicolaou smear with manual screeningon 12-06-2021 Thin prep Papanicolaou smear with manual screening 1+ [facility] Work Phone: Thin prep Papanicolaou smear with manual screening 7 5-15 [facility] Work Phone: Basophil percentageon 2021 Basophil percentage 0-5 SEEN /hpf 0-5 [facility] Work Phone: Bilirubin Test strip Ql (U)o n 12-04-2021 Bilirubin Ql (U) Negative Negative [facility] Work Phone: Ketones Test strip Ql (U)on 12-04-2021 Ketones Ql (U) Negative Negative [facility] Work Phone: Mucus LM Ql (Urine sed)on Mucus Ql (Urine sed) 0 SEEN /hpf [facility] Work Phone: Nitrite Test strip Ql (U)on 12-04-2021 Nitrite Ql (U) Negative Negative [facility] Work Phone: Protein Test strip Ql (U)on 12-04-2021 Protein Ql (U) Negative Negative [facility] Work Phone: Squamous epithelial cells de tection in urine sediment by light microscopyon 12-04-2021 Epithelial cells.squamous LM Ql (Urine sed) 0-5 SEEN /hpf 0-5 [facility] Work Phone: Urine blood detectionon 11-17 RBC Ql (U) 25 /ul Negative [facility] Work Phone: RBC Ql (U) 0 SEEN /hpf 0-5 [facility] Work Phone: Urine clarityon 12-04-2021 Clarity (U) Cloudy Clear [facility] Work Phone: Urine color determinationon 12-04-2021 Color (U) Yellow Yellow [facility] Work Phone: Urine glucose detectionon Glucose Ql (U) Normal mg/dl Normal [facility] Work Phone: Urine leukocyte esterase det ection by dipstickon 12-04-2021 Leukocyte esterase Test strip Ql (U) 500 /ul Negative [facility] Work Phone: Urine pHon 12-04-2021 pH (U) 6.0 [pH] 5.0 - 8.0 [facility] Work Phone: Urine sediment bacteria coun t by microscopy (number/high power field)on 12-04-2021 Bacteria LM.HPF (Urine sed) [#/Area] 4 /[HPF] None Seen [facility] Work Phone: Urine specific gravity measu rementon 12-04-2021 Specific gravity (U) [Rel density] 1.015 1.002-1.030 [facility] Work Phone: Urobilinogen Auto test strip Ql (U)on 12-04-2021 Urobilinogen Ql (U) Normal mg/dl Normal [facility] Work Phone: Basophil percentageon 2021 Chloride [Moles/Vol] 105 mmol/L 98-107 [facility] Work Phone: [phone] Glucose [Mass/Vol] 96 mg/dL 74-106 [facility] Work Phone: [phone] Potassium [Moles/Vol] 3.9 mmol/L 3.5-5.1 [facility] Work Phone: [phone] Sodium [Moles/Vol] 138 mmol/L 136-145 [facility] Work Phone: [phone] WBC (Bld) [#/Vol] 7.5 10*3/uL 4.4-11.0 [facility] Work Phone: Blood erythrocytes count (nu mber/volume)on 12-01-2021 RBC (Bld) [#/Vol] 3.41 10*6/uL 4.6-6.2 [facility] Work Phone: [phone] Blood hemoglobin measurement (mass/volume)on 12-01-2021 Hemoglobin (Bld) [Mass/Vol] 8.3 g/dL 13.0-16.5 [facility] Work Phone: [phone] Blood platelet mean volumeon 12-01-2021 Platelet mean volume (Bld) [Entitic vol] 11.1 fL 6.2-12.0 [facility] Work Phone: [phone] Determination of erythrocyte mean corpuscular volume (MCV)on 12-01-2021 MCV (RBC) [Entitic vol] 86.2 fL 80-94 [facility] Work Phone: Hematocrit Auto (Bld) [Volum e fraction]on 12-01-2021 Hematocrit (Bld) [Volume fraction] 29.4 % 40-54 [facility] Work Phone: INR in Blood by Coagulation assayon 12-01-2021 INR Coag (Bld) [Relative time] 1.4 {INR} [facility] Work Phone: Laboratory - Chemistry and C hemistry - challengeon 12-01-2021 CO2 [Moles/Vol] 26.0 mmol/L 21.0-32.0 [facility] Work Phone: Urea nitrogen/Creatinine [Mass ratio] 14.6 mg/mg 10-20 [facility] Work Phone: Laboratory - Coagulationon 0 12-01-2021 PT Coag (PPP) [Time] 16.9 s 11.7-14.9 [facility] Work Phone: Laboratory - Hematology and Cell countson 12-01-2021 Erythrocyte distribution width (RBC) [Entitic vol] 68.4 fL 35.1-43.9 [facility] Work Phone: Erythrocyte distribution width (RBC) [Ratio] 26.7 % 11.6-14.6 [facility] Work Phone: [phone] MCH (RBC) [Entitic mass] 24.3 pg 27.0-32.0 [facility] Work Phone: MCHC Auto (RBC) [Mass/Vol]on 12-01-2021 MCHC (RBC) [Mass/Vol] 28.2 g/dL 32-36 [facility] Work Phone: No Panel Informationon 12-01 Estimated GFR (MDRD) Amer 99 mL/min >60 [facility] Work Phone: Comment on above: GFR Calc Estimated GFR (MDRD) Non-Af Amer 82 mL/min >60 [facility] Work Phone: Comment on above: Non- GFR Calc Platelets bldon 12-01-2021 Platelets (Bld) [#/Vol] 307 10*3/uL 150-450 [facility] Work Phone: [phone] Serum or plasma calcium luis urement (mass/volume)on 12-01-2021 Calcium [Mass/Vol] 9.5 mg/dL 8.5-10.1 [facility] Work Phone: [phone] Serum or plasma creatinine m easurement (mass/volume)on 12-01-2021 Creatinine [Mass/Vol] 0.96 mg/dL 0.70-1.30 [facility] Work Phone: [phone] Comment on above: The validity of the calculated GFR & GFRAA in patients over 70 years has not been determined. Clinical correlation is essential. Serum or plasma urea nitroge n measurement (mass/volume)on 12-01-2021 Urea nitrogen [Mass/Vol] 14 mg/dL 7-18 [facility] Work Phone: [phone] Thin prep Papanicolaou smear with manual screeningon 12-01-2021 Thin prep Papanicolaou smear with manual screening 7 -15 [facility] Work Phone: [phone] Absolute lymphocyte counton 11-30-2021 Lymphocytes Auto (Unsp spec) [#/Vol] 1.13 10*3/uL 0.83-4.51 [facility] Work Phone: [phone] Basophil percentageon 2021 Basophil percentage 3.4 mg/dL 2.5-4.9 [facility]: Basophils/100 WBC (Bld) 1.5 % 0-1 [facility] Work Phone: Chloride [Moles/Vol] 107 mmol/L 98-107 [facility] Work Phone: Eosinophils/100 WBC (Bld) 3.5 % 0-5 [facility] Work Phone: Glucose [Mass/Vol] 90 mg/dL 74-106 [facility] Work Phone: Neutrophils (Bld) [#/Vol] 6.9 10*3/uL 2.0-7.7 [facility] Work Phone: Neutrophils/100 WBC (Bld) 74.4 % 47-70 [facility] Work Phone: Potassium [Moles/Vol] 3.4 mmol/L 3.5-5.1 [facility]: Sodium [Moles/Vol] 140 mmol/L 136-145 [facility]: WBC (Bld) [#/Vol] 9.3 10*3/uL 4.4-11.0 [facility] Work Phone: Blood erythrocytes count (nu mber/volume)on 11-30-2021 RBC (Bld) [#/Vol] 3.21 10*6/uL 4.6-6.2 [facility] Work Phone: Blood hemoglobin measurement (mass/volume)on 11-30-2021 Hemoglobin (Bld) [Mass/Vol] 7.8 g/dL 13.0-16.5 [facility] Work Phone: Blood lymphocytes/100 leukoc yteson 11-30-2021 Lymphocytes/100 WBC (Bld) 12.2 % 19-41 [facility] Work Phone: Blood monocytes/100 leukocyt eson 11-30-2021 Monocytes/100 WBC (Bld) 7.0 % 0-10 [facility] Work Phone: Blood platelet mean volumeon 11-30-2021 Platelet mean volume (Bld) [Entitic vol] 10.8 fL 6.2-12.0 [facility] Work Phone: Blood polychromasia detectio n by light microscopyon 11-30-2021 Polychromasia LM Ql (Bld) 2+ [facility] Work Phone: Determination of erythrocyte mean corpuscular volume (MCV)on 11-30-2021 MCV (RBC) [Entitic vol] 83.8 fL 80-94 [facility] Work Phone: Hematocrit Auto (Bld) [Volum e fraction]on 11-30-2021 Hematocrit (Bld) [Volume fraction] 26.9 % 40-54 [facility] Work Phone: INR in Blood by Coagulation assayon 11-30-2021 INR Coag (Bld) [Relative time] 1.4 {INR} [facility] Work Phone: [phone] Laboratory - Chemistry and C hemistry - challengeon 11-30-2021 CO2 [Moles/Vol] 26.0 mmol/L 21.0-32.0 [facility] Work Phone: [phone] Urea nitrogen/Creatinine [Mass ratio] 12.0 mg/mg 10-20 [facility] Work Phone: [phone] Laboratory - Coagulationon 0 11-30-2021 PT Coag (PPP) [Time] 17.1 s 11.7-14.9 [facility] Work Phone: [phone] Laboratory - Hematology and Cell countson 11-30-2021 Anisocytosis Ql (Bld) 2+ [facility] Work Phone: [phone] Erythrocyte distribution width (RBC) [Entitic vol] 64.9 fL 35.1-43.9 [facility] Work Phone: [phone] Erythrocyte distribution width (RBC) [Ratio] 24.2 % 11.6-14.6 [facility] Work Phone: [phone] Immature granulocytes/100 WBC (Bld) 1.400 % 0.0-0.9 [facility] Work Phone: [phone] Comment on above: IG% - Immature Granu locytes (promyelocytes, myelocytes and metamyelocytes) > 1% indicates that a LEFT SHIFT is Present. MCH (RBC) [Entitic mass] 24.3 pg 27.0-32.0 [facility] Work Phone: Nucleated RBC/100 WBC (Bld) [Ratio] 2.7 % 0-5 [facility] Work Phone: [phone] MCHC Auto (RBC) [Mass/Vol]on 11-30-2021 MCHC (RBC) [Mass/Vol] 29.0 g/dL 32-36 [facility] Work Phone: No Panel Informationon 11-30 Estimated Creatinine Clearance Calc 70.99 ml/min [facility] Work Phone: Estimated GFR (MDRD) Amer 105 mL/min >60 [facility] Work Phone: [phone] Comment on above: GFR Calc Estimated GFR (MDRD) Non-Af Amer 87 mL/min >60 [facility] Work Phone: Comment on above: Non- GFR Calc Anti-Gliadin IgA Antibody 3 units 0-19 [facility] Work Phone: Comment on above: Negative 0 - 19 Weak Positive 20 - 30 Moderate to Strong Positive >30 Anti-Gliadin IgG Antibody 1 units 0-19 [facility] Work Phone: Comment on above: Negative 0 - 19 Weak Positive 20 - 30 Moderate to Strong Positive >30 Endomysial IgA Antibody Negative Negative [facility] Work Phone: Tissue Transglutaminase IgG Ab <2 U/mL 0-5 [facility] Work Phone: Comment on above: Negative 0 - 5 Weak Positive 6 - 9 Positive >9 Platelets bldon 11-30-2021 Platelets (Bld) [#/Vol] 305 10*3/uL 150-450 [facility] Work Phone: [phone] Serum IgA measurement (units /volume)on 11-30-2021 IgA Qn (S) 128 mg/dL 61-437 [facility] Work Phone: [phone] Comment on above: Performed at: [address] [id number] Director: Дмитрий Tran PhD, Phone: [phone] Serum or plasma calcium luis urement (mass/volume)on 11-30-2021 Calcium [Mass/Vol] 8.9 mg/dL 8.5-10.1 [facility] Work Phone: Serum or plasma creatinine m easurement (mass/volume)on 11-30-2021 Creatinine [Mass/Vol] 0.91 mg/dL 0.70-1.30 [facility] Work Phone: Comment on above: The validity of the calculated GFR & GFRAA in patients over 70 years has not been determined. Clinical correlation is essential. Serum or plasma urea nitroge n measurement (mass/volume)on 11-30-2021 Urea nitrogen [Mass/Vol] 11 mg/dL 7-18 [facility] Work Phone: Serum tissue transglutaminas e IgA antibody assay (units/volume)on 11-30-2021 tTG IgA Qn (S) <2 U/mL 0-3 [facility] Work Phone: Comment on above: Negative 0 - 3 Weak Positive 4 - 10 Positive >10 Tissue Transglutaminase (tTG) has been identified as the endomysial antigen. Studies have demonstr- ated that endomysial IgA antibodies have over 99% specificity for gluten sensitive enteropathy. Thin prep Papanicolaou smear with manual screeningon 11-30-2021 Thin prep Papanicolaou smear with manual screening 7 5-15 [facility] Work Phone: Blood platelet adequacy dete ction by light microscopyon 11-29-2021 Platelets LM Ql (Bld) ADEQUATE ADEQ [facility] Work Phone: Hypochromatic red blood cell detectionon 11-29-2021 Hypochromia Ql (Bld) 1+ [facility] Work Phone: Serum or plasma ferritin arlyn surement (mass/volume)on 11-29-2021 Ferritin [Mass/Vol] 157 ng/mL 26-388 [facility] Work Phone: Blood manual differential co mment interpretation (narrative result)on 11-28-2021 Manual differential comment Ghassan (Bld) [Interp] SCANNED [facility] Work Phone: Laboratory - Chemistry and C hemistry - challengeon 11-28-2021 Magnesium [Mass/Vol] 2.0 mg/dL 1.6-2.6 [facility] Work Phone: Macrocytes detectionon 11-28 Macrocytes Ql (Bld) RARE [facility] Work Phone: Ovalocyte detectionon 2021 Ovalocytes LM Ql (Bld) 1+ [facility] Work Phone: Thin prep Papanicolaou smear with manual screeningon 11-28-2021 Thin prep Papanicolaou smear with manual screening 1+ [facility] Work Phone: Laboratory - Chemistry and C hemistry - challengeon 11-26-2021 Cobalamin (Vitamin B12) [Mass/Vol] 403 pg/mL 211-911 [facility] Work Phone: No Panel Informationon 11-26 Troponin I High Sensitivity 13 pg/mL 3.0-78.0 [facility] Work Phone: Comment on above: Please Note: [place] t Units and Gender Specific Reference Ranges. For more information see Policy Stat Procedure [place] High Sensitivity Troponin (TNIH) and attachments. Absolute lymphocyte counton 11-25-2021 Lymphocytes Auto (Unsp spec) [#/Vol] 0.81 10*3/uL 0.83-4.51 [facility] Work Phone: Basophil percentageon 2021 Basophil percentage 0 SEEN /hpf 0-5 [facility] Work Phone: Basophils/100 WBC (Bld) 0.7 % 0-1 [facility] Work Phone: Eosinophils/100 WBC (Bld) 0.1 % 0-5 [facility] Work Phone: Neutrophils (Bld) [#/Vol] 5.8 10*3/uL 2.0-7.7 [facility] Work Phone: Neutrophils/100 WBC (Bld) 80.9 % 47-70 [facility] Work Phone: WBC (Bld) [#/Vol] 7.1 10*3/uL 4.4-11.0 [facility] Work Phone: [phone] Bilirubin [Mass/Vol] 0.20 mg/dL 0.20-1.00 [facility] Work Phone: Comment on above: For patients on eltr ombopag therapy, use of Dimension [place] TBIL is not recommended. Chloride [Moles/Vol] 101 mmol/L 98-107 [facility] Work Phone: [phone] Glucose [Mass/Vol] 113 mg/dL 74-106 [facility] Work Phone: Comment on above: Fasting Glucose resu lt from 100 to 125 mg/dL suggests IMPAIRED HOMEOSTASIS per A.D.A. criteria. Potassium [Moles/Vol] 4.2 mmol/L 3.5-5.1 [facility] Work Phone: Protein [Mass/Vol] 6.8 g/dL 6.4-8.2 [facility] Work Phone: [phone] Sodium [Moles/Vol] 133 mmol/L 136-145 [facility] Work Phone: Bilirubin Test strip Ql (U)o n 11-25-2021 Bilirubin Ql (U) Negative Negative [facility] Work Phone: [phone] Blood erythrocytes count (nu mber/volume)on 11-25-2021 RBC (Bld) [#/Vol] 2.36 10*6/uL 4.6-6.2 [facility] Work Phone: [phone] Blood hemoglobin measurement (mass/volume)on 11-25-2021 Hemoglobin (Bld) [Mass/Vol] 4.4 g/dL 13.0-16.5 [facility] Work Phone: Comment on above: CRITICAL VALUE VERIF IED. CALLED TO [id number]/09/22 [id number] Kateryna Horn.RESULTS READ BACK BY SAME . Blood lymphocytes/100 leukoc yteson 11-25-2021 Lymphocytes/100 WBC (Bld) 11.4 % 19-41 [facility] Work Phone: Blood manual differential co mment interpretation (narrative result)on 11-25-2021 Manual differential comment Ghassan (Bld) [Interp] SCANNED [facility] Work Phone: Comment on above: ANEMIA NOTED Blood monocytes/100 leukocyt eson 11-25-2021 Monocytes/100 WBC (Bld) 6.3 % 0-10 [facility] Work Phone: Blood platelet mean volumeon 11-25-2021 Platelet mean volume (Bld) [Entitic vol] 10.2 fL 6.2-12.0 [facility] Work Phone: Determination of erythrocyte mean corpuscular volume (MCV)on 11-25-2021 MCV (RBC) [Entitic vol] 71.6 fL 80-94 [facility] Work Phone: Hematocrit Auto (Bld) [Volum e fraction]on 11-25-2021 Hematocrit (Bld) [Volume fraction] 16.9 % 40-54 [facility] Work Phone: Hemoglobin in reticulocytes (mass per reticulocyte)on 11-25-2021 Hemoglobin (Reticulocytes) [Entitic mass] 15.0 pg 30-35 [facility] Work Phone: Hypochromatic red blood cell detectionon 11-25-2021 Hypochromia Ql (Bld) 1+ [facility] Work Phone: INR in Blood by Coagulation assayon 11-25-2021 INR Coag (Bld) [Relative time] 5.4 {INR} [facility] Work Phone: Comment on above: CRITICAL VALUE VERIF IED. CALLED TO [id number] Kateryna Horn.RESULTS READ BACK BY SAME . Iron measurement (mass/mass) on 11-25-2021 Iron (Unsp spec) [Mass/Mass] 10 ug/dL 65-175 [facility] Work Phone: Ketones Test strip Ql (U)on 11-25-2021 Ketones Ql (U) Negative Negative [facility] Work Phone: Laboratory - Chemistry and C hemistry - challengeon 11-25-2021 ALP [Catalytic activity/Vol] 54 U/L 45-117 [facility] Work Phone: [phone] ALT [Catalytic activity/Vol] 20 U/L 16-61 [facility] Work Phone: [phone] CO2 [Moles/Vol] 23.0 mmol/L 21.0-32.0 [facility] Work Phone: [phone] Globulin (S) [Mass/Vol] 3.1 g/dL 2.2-4.2 [facility] Work Phone: [phone] Urea nitrogen/Creatinine [Mass ratio] 16.7 mg/mg 10-20 [facility] Work Phone: [phone] Laboratory - Coagulationon 0 11-25-2021 PT Coag (PPP) [Time] 49.2 s 11.7-14.9 [facility] Work Phone: [phone] Laboratory - Hematology and Cell countson 11-25-2021 Erythrocyte distribution width (RBC) [Entitic vol] 48.7 fL 35.1-43.9 [facility] Work Phone: [phone] Erythrocyte distribution width (RBC) [Ratio] 18.6 % 11.6-14.6 [facility] Work Phone: [phone] Immature granulocytes/100 WBC (Bld) 0.600 % 0.0-0.9 [facility] Work Phone: [phone] Comment on above: IG% - Immature Granu locytes (promyelocytes, myelocytes and metamyelocytes) > 1% indicates that a LEFT SHIFT is Present. MCH (RBC) [Entitic mass] 18.6 pg 27.0-32.0 [facility] Work Phone: [phone] Nucleated RBC/100 WBC (Bld) [Ratio] 0.6 % 0-5 [facility] Work Phone: [phone] Lower GI hemoglobin IA Ql (S tl)on 11-25-2021 Stool Occult Blood (LACI) Positive [facility] Work Phone: [phone] MCHC Auto (RBC) [Mass/Vol]on 11-25-2021 MCHC (RBC) [Mass/Vol] 26.0 g/dL 32-36 [facility] Work Phone: Mucus LM Ql (Urine sed)on Mucus Ql (Urine sed) 0 SEEN /hpf [facility] Work Phone: Nitrite Test strip Ql (U)on 11-25-2021 Nitrite Ql (U) Negative Negative [facility] Work Phone: [phone] No Panel Informationon 11-25 Immature Reticulocyte Fraction 25.00 % 3.00-15.90 [facility] Work Phone: [phone] Reticulocyte Count 2.10 % 0.5-1.5 [facility] Work Phone: [phone] Estimated Creatinine Clearance Calc 44.86 ml/min [facility] Work Phone: [phone] Estimated GFR (MDRD) Amer 62 mL/min >60 [facility] Work Phone: Comment on above: GFR Calc Estimated GFR (MDRD) Non-Af Amer 51 mL/min >60 [facility] Work Phone: Comment on above: Non- GFR Calc Total Iron Binding Capacity 466 ug/dL 250-450 [facility] Work Phone: [phone] Platelets bldon 11-25-2021 Platelets (Bld) [#/Vol] 398 10*3/uL 150-450 [facility] Work Phone: [phone] Protein Test strip Ql (U)on 11-25-2021 Protein Ql (U) Negative Negative [facility] Work Phone: [phone] Review by pathologiston Pathologist review Ghassan (Unsp spec) [Interp] Lena jj [facility] Work Phone: Pathologist review Ghassan (Unsp spec) [Interp] Reviewed [facility] Work Phone: [phone] Comment on above: Previous reported re sult: Lena gardner Edited by: ALMASOD on 11/26/21:1239Severe Microcytic anemia.Clinical correlation necessary.Sebastian Gonzalez M.D. 11/26/21 AMENDED REPORT 11/26/21 1239 PATH REV previously reported as: October Serum or plasma albumin luis urement (mass/volume)on 11-25-2021 Albumin [Mass/Vol] 3.7 g/dL 3.2-5.0 [facility] Work Phone: Serum or plasma albumin/glob ulin mass ratioon 11-25-2021 Albumin/Globulin [Mass ratio] 1.2 {ratio} 0.9-2.4 [facility] Work Phone: Serum or plasma calcium luis urement (mass/volume)on 11-25-2021 Calcium [Mass/Vol] 8.2 mg/dL 8.5-10.1 [facility] Work Phone: Serum or plasma creatinine m easurement (mass/volume)on 11-25-2021 Creatinine [Mass/Vol] 1.44 mg/dL 0.70-1.30 [facility] Work Phone: Comment on above: The validity of the calculated GFR & GFRAA in patients over 70 years has not been determined. Clinical correlation is essential. Serum or plasma ferritin arlyn surement (mass/volume)on 11-25-2021 Ferritin [Mass/Vol] 5 ng/mL 26-388 [facility] Work Phone: Serum or plasma folate measu rement (mass/volume)on 11-25-2021 Folate [Mass/Vol] 12.90 ng/mL 3.1-55.4 [facility] Work Phone: Serum or plasma iron saturat ion measurement (mass fraction)on 11-25-2021 Iron saturation [Mass fraction] 2.1 % 15.0-55.0 [facility] Work Phone: Serum or plasma urea nitroge n measurement (mass/volume)on 11-25-2021 Urea nitrogen [Mass/Vol] 24 mg/dL 7-18 [facility] Work Phone: Squamous epithelial cells de tection in urine sediment by light microscopyon 11-25-2021 Epithelial cells.squamous LM Ql (Urine sed) 0 SEEN /hpf 0-5 [facility] Work Phone: Thin prep Papanicolaou smear with manual screeningon 11-25-2021 Thin prep Papanicolaou smear with manual screening 10 U/L 15-37 [facility] Work Phone: Thin prep Papanicolaou smear with manual screening 9 5-15 [facility] Work Phone: Urine blood detectionon RBC Ql (U) 50 /ul Negative [facility] Work Phone: RBC Ql (U) 5-10 SEEN /hpf 0-5 [facility] Work Phone: Urine clarityon 11-25-2021 Clarity (U) Clear Clear [facility] Work Phone: Urine color determinationon 11-25-2021 Color (U) Straw Yellow [facility] Work Phone: Urine glucose detectionon Glucose Ql (U) Normal mg/dl Normal [facility] Work Phone: Urine leukocyte esterase det ection by dipstickon 11-25-2021 Leukocyte esterase Test strip Ql (U) Negative Negative [facility] Work Phone: Urine pHon 11-25-2021 pH (U) 7.0 [pH] 5.0 - 8.0 [facility] Work Phone: Urine sediment bacteria coun t by microscopy (number/high power field)on 11-25-2021 Bacteria LM.HPF (Urine sed) [#/Area] RARE /hpf None Seen [facility] Work Phone: Urine specific gravity measu rementon 11-25-2021 Specific gravity (U) [Rel density] 1.010 1.002-1.030 [facility] Work Phone: Urobilinogen Auto test strip Ql (U)on 11-25-2021 Urobilinogen Ql (U) Normal mg/dl Normal [facility] Work Phone: INR in Blood by Coagulation assayon 11-11-2021 INR Coag (Bld) [Relative time] 1.2 {INR} [facility] Laboratory - Coagulationon 0 11-11-2021 PT Coag (PPP) [Time] 15.1 s 11.7-14.9 [facility] Work Phone: No Panel Informationon 11-08 DLCO (ml/min/mmHg) 7.15 ml/min/mmHg [facility] DLCO/VA (ml/min/mmHg/L) 1.63 ml/min/mmHg/L [facility] GFI90-98% PRE (L/S) 0.30 L/S [facility] FEV1 PRE (L) 0.85 L [facility] FEV1/FVC PRE (%) 0.38 % [facility] FVC PRE (L) 2.23 L [facility] PEF PRE (L/S) 1.51 L/S [facility] VA (L) 4.38 L [facility] CNCOon 10-18-2021 CNCO Letter Text Letter Text Normal [facility] INR FINGERSTICK B/Oon 2021 INR Coag (Bld) [Relative time] 2.2 EXT [facility] Quality Check No [facility] Absolute lymphocyte counton 10-08-2021 Lymphocytes Auto (Unsp spec) [#/Vol] 1.26 10*3/uL 0.83-4.51 [facility] Work Phone: Basophil percentageon 2021 Basophil percentage 10-25 SEEN /hpf 0-5 [facility] Work Phone: Basophils/100 WBC (Bld) 1.3 % 0-1 [facility] Work Phone: Bilirubin [Mass/Vol] 0.30 mg/dL 0.20-1.00 [facility] Work Phone: Comment on above: For patients on eltr ombopag therapy, use of Dimension [place] TBIL is not recommended. Chloride [Moles/Vol] 105 mmol/L 98-107 [facility] Work Phone: Eosinophils/100 WBC (Bld) 0.5 % 0-5 [facility] Work Phone: Glucose [Mass/Vol] 99 mg/dL 74-106 [facility] Work Phone: Neutrophils (Bld) [#/Vol] 4.3 10*3/uL 2.0-7.7 [facility] Work Phone: Neutrophils/100 WBC (Bld) 70.4 % 47-70 [facility] Work Phone: Potassium [Moles/Vol] 3.7 mmol/L 3.5-5.1 [facility] Work Phone: Protein [Mass/Vol] 7.5 g/dL 6.4-8.2 [facility] Work Phone: Sodium [Moles/Vol] 138 mmol/L 136-145 [facility] Work Phone: WBC (Bld) [#/Vol] 6.1 10*3/uL 4.4-11.0 [facility] Work Phone: Bilirubin Test strip Ql (U)o n 10-08-2021 Bilirubin Ql (U) Negative Negative [facility] Work Phone: Blood erythrocytes count (nu mber/volume)on 10-08-2021 RBC (Bld) [#/Vol] 3.87 10*6/uL 4.6-6.2 [facility] Work Phone: Blood hemoglobin measurement (mass/volume)on 10-08-2021 Hemoglobin (Bld) [Mass/Vol] 8.3 g/dL 13.0-16.5 [facility] Work Phone: Blood lymphocytes/100 leukoc yteson 10-08-2021 Lymphocytes/100 WBC (Bld) 20.5 % 19-41 [facility] Work Phone: Blood monocytes/100 leukocyt eson 10-08-2021 Monocytes/100 WBC (Bld) 7.0 % 0-10 [facility] Work Phone: Blood platelet mean volumeon 10-08-2021 Platelet mean volume (Bld) [Entitic vol] 10.1 fL 6.2-12.0 [facility] Work Phone: Determination of erythrocyte mean corpuscular volume (MCV)on 10-08-2021 MCV (RBC) [Entitic vol] 74.7 fL 80-94 [facility] Work Phone: Hematocrit Auto (Bld) [Volum e fraction]on 10-08-2021 Hematocrit (Bld) [Volume fraction] 28.9 % 40-54 [facility] Work Phone: INR in Blood by Coagulation assayon 10-08-2021 INR Coag (Bld) [Relative time] 2.4 {INR} [facility] Work Phone: Ketones Test strip Ql (U)on 10-08-2021 Ketones Ql (U) Negative Negative [facility] Work Phone: Laboratory - Chemistry and C hemistry - challengeon 10-08-2021 ALP [Catalytic activity/Vol] 74 U/L 45-117 [facility] Work Phone: ALT [Catalytic activity/Vol] 21 U/L 16-61 [facility] Work Phone: [phone] CO2 [Moles/Vol] 30.0 mmol/L 21.0-32.0 [facility] Work Phone: Globulin (S) [Mass/Vol] 3.7 g/dL 2.2-4.2 [facility] Work Phone: Lipase [Catalytic activity/Vol] 93 U/L 73-393 [facility] Work Phone: Urea nitrogen/Creatinine [Mass ratio] 20.2 mg/mg 10-20 [facility] Work Phone: Laboratory - Coagulationon 0 10-08-2021 PT Coag (PPP) [Time] 25.7 s 11.7-14.9 [facility] Work Phone: Laboratory - Hematology and Cell countson 10-08-2021 Erythrocyte distribution width (RBC) [Entitic vol] 50.4 fL 35.1-43.9 [facility] Work Phone: [phone] Erythrocyte distribution width (RBC) [Ratio] 18.6 % 11.6-14.6 [facility] Work Phone: [phone] Immature granulocytes/100 WBC (Bld) 0.300 % 0.0-0.9 [facility] Work Phone: [phone] Comment on above: IG% - Immature Granu locytes (promyelocytes, myelocytes and metamyelocytes) > 1% indicates that a LEFT SHIFT is Present. MCH (RBC) [Entitic mass] 21.4 pg 27.0-32.0 [facility] Work Phone: [phone] Nucleated RBC/100 WBC (Bld) [Ratio] 0 % 0-5 [facility] Work Phone: [phone] MCHC Auto (RBC) [Mass/Vol]on 10-08-2021 MCHC (RBC) [Mass/Vol] 28.7 g/dL 32-36 [facility] Work Phone: [phone] Mucus LM Ql (Urine sed)on Mucus Ql (Urine sed) 0 SEEN /hpf [facility] Work Phone: [phone] Nitrite Test strip Ql (U)on 10-08-2021 Nitrite Ql (U) Positive Negative [facility] Work Phone: [phone] Panel Informationon 10-08 Estimated Creatinine Clearance Calc 68.72 ml/min [facility] Work Phone: [phone] Estimated GFR (MDRD) Amer 101 mL/min >60 [facility] Work Phone: [phone] Comment on above: GFR Calc Estimated GFR (MDRD) Non-Af Amer 84 mL/min >60 [facility] Work Phone: [phone] Comment on above: Non- GFR Calc Platelets bldon 10-08-2021 Platelets (Bld) [#/Vol] 349 10*3/uL 150-450 [facility] Work Phone: [phone] Protein Test strip Ql (U)on 10-08-2021 Protein Ql (U) 100 mg/dl Negative [facility] Work Phone: [phone] Serum or plasma albumin luis urement (mass/volume)on 10-08-2021 Albumin [Mass/Vol] 3.8 g/dL 3.2-5.0 [facility] Work Phone: [phone] Serum or plasma albumin/glob ulin mass ratioon 10-08-2021 Albumin/Globulin [Mass ratio] 1.0 {ratio} 0.9-2.4 [facility] Work Phone: [phone] Serum or plasma calcium luis urement (mass/volume)on 10-08-2021 Calcium [Mass/Vol] 9.1 mg/dL 8.5-10.1 [facility] Work Phone: [phone] Serum or plasma creatinine m easurement (mass/volume)on 10-08-2021 Creatinine [Mass/Vol] 0.94 mg/dL 0.70-1.30 [facility] Work Phone: Comment on above: The validity of the calculated GFR & GFRAA in patients over 70 years has not been determined. Clinical correlation is essential. Serum or plasma urea nitroge n measurement (mass/volume)on 10-08-2021 Urea nitrogen [Mass/Vol] 19 mg/dL 7-18 [facility] Work Phone: [phone] Squamous epithelial cells de tection in urine sediment by light microscopyon 10-08-2021 Epithelial cells.squamous LM Ql (Urine sed) 0-5 SEEN /hpf 0-5 [facility] Work Phone: [phone] Thin prep Papanicolaou smear with manual screeningon 10-08-2021 Thin prep Papanicolaou smear with manual screening 12 U/L 15-37 [facility] Work Phone: [phone] Thin prep Papanicolaou smear with manual screening 3 5-15 [facility] Work Phone: [phone] Urine blood detectionon 09-18 RBC Ql (U) 10 /ul Negative [facility] Work Phone: RBC Ql (U) 0 SEEN /hpf 0-5 [facility] Work Phone: Urine clarityon 10-08-2021 Clarity (U) Sl. Cloudy Clear [facility] Work Phone: Urine color determinationon 10-08-2021 Color (U) Yellow Yellow [facility] Work Phone: Urine glucose detectionon Glucose Ql (U) Normal mg/dl Normal [facility] Work Phone: Urine leukocyte esterase det ection by dipstickon 10-08-2021 Leukocyte esterase Test strip Ql (U) 500 /ul Negative [facility] Work Phone: Urine pHon 10-08-2021 pH (U) 6.5 [pH] 5.0 - 8.0 [facility] Work Phone: Urine sediment bacteria coun t by microscopy (number/high power field)on 10-08-2021 Bacteria LM.HPF (Urine sed) [#/Area] 3 /[HPF] None Seen [facility] Work Phone: Urine specific gravity measu rementon 10-08-2021 Specific gravity (U) [Rel density] 1.010 1.002-1.030 [facility] Work Phone: Urobilinogen Auto test strip Ql (U)on 10-08-2021 Urobilinogen Ql (U) Normal mg/dl Normal [facility] Work Phone: Absolute lymphocyte counton 09-22-2021 Lymphocytes Auto (Unsp spec) [#/Vol] 1.51 10*3/uL 0.83-4.51 [facility] Work Phone: Basophil percentageon 2021 Basophils/100 WBC (Bld) 2.1 % 0-1 [facility] Work Phone: Eosinophils/100 WBC (Bld) 5.1 % 0-5 [facility] Work Phone: Neutrophils (Bld) [#/Vol] 3.7 10*3/uL 2.0-7.7 [facility] Work Phone: Neutrophils/100 WBC (Bld) 60.6 % 47-70 [facility] Work Phone: WBC (Bld) [#/Vol] 6.1 10*3/uL 4.4-11.0 [facility] Blood erythrocytes count (nu mber/volume)on 09-22-2021 RBC (Bld) [#/Vol] 4.09 10*6/uL 4.6-6.[address] [facility] [facility] Work Phone: Blood hemoglobin measurement (mass/volume)on 09-22-2021 Hemoglobin (Bld) [Mass/Vol] 9.1 g/dL 13.0-16.5 [facility] Work Phone: Blood lymphocytes/100 leukoc yteson 09-22-2021 Lymphocytes/100 WBC (Bld) 24.8 % 19-41 [facility] Work Phone: Blood monocytes/100 leukocyt eson 09-22-2021 Monocytes/100 WBC (Bld) 6.9 % 0-10 [facility] Work Phone: Blood platelet mean volumeon 09-22-2021 Platelet mean volume (Bld) [Entitic vol] 9.9 fL 6.2-12.0 [facility] Work Phone: Determination of erythrocyte mean corpuscular volume (MCV)on 09-22-2021 MCV (RBC) [Entitic vol] 77.5 fL 80-94 [facility] Work Phone: Hematocrit Auto (Bld) [Volum e fraction]on 09-22-2021 Hematocrit (Bld) [Volume fraction] 31.7 % 40-54 [facility] Work Phone: Laboratory - Hematology and Cell countson 09-22-2021 Erythrocyte distribution width (RBC) [Entitic vol] 56.2 fL 35.1-43.9 [facility] Work Phone: Erythrocyte distribution width (RBC) [Ratio] 19.9 % 11.6-14.6 [facility] Work Phone: Immature granulocytes/100 WBC (Bld) 0.500 % 0.0-0.9 [facility] Work Phone: Comment on above: IG% - Immature Granu locytes (promyelocytes, myelocytes and metamyelocytes) > 1% indicates that a LEFT SHIFT is Present. MCH (RBC) [Entitic mass] 22.2 pg 27.0-32.0 [facility] Work Phone: Nucleated RBC/100 WBC (Bld) [Ratio] 0 % 0-5 [facility] Work Phone: MCHC Auto (RBC) [Mass/Vol]on 09-22-2021 MCHC (RBC) [Mass/Vol] 28.7 g/dL 32-36 [facility] Work Phone: Platelets bldon 09-22-2021 Platelets (Bld) [#/Vol] 351 10*3/uL 150-450 [facility] Work Phone: CNPNon 09-21-2021 CNPN Telephone ([id number]) PEDRO PABLO SIERRA ([id number]) 1950 M T Date Time Provider Department [...] Date Reviewed: 09/15/2021 Reviewed by: Anjel Braga APRN.LEARNING SPECIALIST - Fully Assessed Reason for Visit: Appointment [...] [J43.9] - COMPOUNDED PRESCRIPTION Aerosol supplies Dx:J44.1 NPI#[id number] - COMPOUNDED PRESCRIPTION NEBULIZER FOR HOME USE. [...] left fem (more content not included)... Normal [facility] Absolute lymphocyte counton 09-17-2021 Lymphocytes Auto (Unsp spec) [#/Vol] 1.19 10*3/uL 0.83-4.51 [facility] Work Phone: Basophil percentageon 2021 Basophil percentage 0-5 SEEN /hpf 0-5 [facility] Work Phone: Basophils/100 WBC (Bld) 1.6 % 0-1 [facility] Work Phone: Bilirubin [Mass/Vol] 0.30 mg/dL 0.20-1.00 [facility] Work Phone: Comment on above: For patients on eltr ombopag therapy, use of Dimension [place] TBIL is not recommended. Chloride [Moles/Vol] 104 mmol/L 98-107 [facility] Work Phone: Eosinophils/100 WBC (Bld) 1.1 % 0-5 [facility] Work Phone: Glucose [Mass/Vol] 100 mg/dL 74-106 [facility] Work Phone: Comment on above: Fasting Glucose resu lt from 100 to 125 mg/dL suggests IMPAIRED HOMEOSTASIS per A.D.A. criteria. Neutrophils (Bld) [#/Vol] 5.2 10*3/uL 2.0-7.7 [facility] Work Phone: Neutrophils/100 WBC (Bld) 73.0 % 47-70 [facility] Work Phone: Potassium [Moles/Vol] 4.2 mmol/L 3.5-5.1 [facility] Work Phone: Protein [Mass/Vol] 7.3 g/dL 6.4-8.2 [facility] Work Phone: Sodium [Moles/Vol] 136 mmol/L 136-145 [facility] Work Phone: WBC (Bld) [#/Vol] 7.1 10*3/uL 4.4-11.0 [facility] Work Phone: Bilirubin Test strip Ql (U)o n 09-17-2021 Bilirubin Ql (U) Negative Negative [facility] Work Phone: [phone] Blood erythrocytes count (nu mber/volume)on 09-17-2021 RBC (Bld) [#/Vol] 3.50 10*6/uL 4.6-6.2 [facility] Work Phone: Blood hemoglobin measurement (mass/volume)on 09-17-2021 Hemoglobin (Bld) [Mass/Vol] 7.9 g/dL 13.0-16.5 [facility] Work Phone: Blood lymphocytes/100 leukoc yteson 09-17-2021 Lymphocytes/100 WBC (Bld) 16.9 % 19-41 [facility] Work Phone: Blood monocytes/100 leukocyt eson 09-17-2021 Monocytes/100 WBC (Bld) 7.1 % 0-10 [facility] Work Phone: Blood platelet mean volumeon 09-17-2021 Platelet mean volume (Bld) [Entitic vol] 9.5 fL 6.2-12.0 [facility] Work Phone: Determination of erythrocyte mean corpuscular volume (MCV)on 09-17-2021 MCV (RBC) [Entitic vol] 75.1 fL 80-94 [facility] Work Phone: Hematocrit Auto (Bld) [Volum e fraction]on 09-17-2021 Hematocrit (Bld) [Volume fraction] 26.3 % 40-54 [facility] Work Phone: INR in Blood by Coagulation assayon 09-17-2021 INR Coag (Bld) [Relative time] 1.3 {INR} [facility] Work Phone: Ketones Test strip Ql (U)on 09-17-2021 Ketones Ql (U) Negative Negative [facility] Work Phone: [phone] Laboratory - Chemistry and C hemistry - challengeon 09-17-2021 ALP [Catalytic activity/Vol] 79 U/L 45-117 [facility] Work Phone: ALT [Catalytic activity/Vol] 36 U/L 16-61 [facility] Work Phone: CO2 [Moles/Vol] 25.0 mmol/L 21.0-32.0 [facility] Work Phone: Globulin (S) [Mass/Vol] 3.5 g/dL 2.2-4.2 [facility] Work Phone: Lipase [Catalytic activity/Vol] 102 U/L 73-393 [facility] Work Phone: Urea nitrogen/Creatinine [Mass ratio] 12.5 mg/mg 10-20 [facility] Work Phone: Laboratory - Coagulationon 0 09-17-2021 PT Coag (PPP) [Time] 15.4 s 11.7-14.9 [facility] Work Phone: Laboratory - Hematology and Cell countson 09-17-2021 Erythrocyte distribution width (RBC) [Entitic vol] 53.1 fL 35.1-43.9 [facility] Work Phone: [phone] Erythrocyte distribution width (RBC) [Ratio] 19.6 % 11.6-14.6 [facility] Work Phone: [phone] Immature granulocytes/100 WBC (Bld) 0.300 % 0.0-0.9 [facility] Work Phone: [phone] Comment on above: IG% - Immature Granu locytes (promyelocytes, myelocytes and metamyelocytes) > 1% indicates that a LEFT SHIFT is Present. MCH (RBC) [Entitic mass] 22.6 pg 27.0-32.0 [facility] Work Phone: [phone] Nucleated RBC/100 WBC (Bld) [Ratio] 0 % 0-5 [facility] Work Phone: [phone] MCHC Auto (RBC) [Mass/Vol]on 09-17-2021 MCHC (RBC) [Mass/Vol] 30.0 g/dL 32-36 [facility] Work Phone: [phone] Mucus LM Ql (Urine sed)on Mucus Ql (Urine sed) 0 SEEN /hpf [facility] Work Phone: [phone] Nitrite Test strip Ql (U)on 09-17-2021 Nitrite Ql (U) Positive Negative [facility] Work Phone: No Panel Informationon 09-17 Estimated Creatinine Clearance Calc 57.68 ml/min [facility] Work Phone: [phone] Estimated GFR (MDRD) Amer 83 mL/min >60 [facility] Work Phone: [phone] Comment on above: GFR Calc Estimated GFR (MDRD) Non-Af Amer 68 mL/min >60 [facility] Work Phone: [phone] Comment on above: Non- GFR Calc Platelets bldon 09-17-2021 Platelets (Bld) [#/Vol] 342 10*3/uL 150-450 [facility] Work Phone: [phone] Protein Test strip Ql (U)on 09-17-2021 Protein Ql (U) 15 mg/dl Negative [facility] Work Phone: [phone] Serum or plasma albumin luis urement (mass/volume)on 09-17-2021 Albumin [Mass/Vol] 3.8 g/dL 3.2-5.0 [facility] Work Phone: [phone] Serum or plasma albumin/glob ulin mass ratioon 09-17-2021 Albumin/Globulin [Mass ratio] 1.1 {ratio} 0.9-2.4 [facility] Work Phone: [phone] Serum or plasma calcium luis urement (mass/volume)on 09-17-2021 Calcium [Mass/Vol] 8.7 mg/dL 8.5-10.1 [facility] Work Phone: [phone] Serum or plasma creatinine m easurement (mass/volume)on 09-17-2021 Creatinine [Mass/Vol] 1.12 mg/dL 0.70-1.30 [facility] Work Phone: Comment on above: The validity of the calculated GFR & GFRAA in patients over 70 years has not been determined. Clinical correlation is essential. Serum or plasma urea nitroge n measurement (mass/volume)on 09-17-2021 Urea nitrogen [Mass/Vol] 14 mg/dL 7-18 [facility] Work Phone: Squamous epithelial cells de tection in urine sediment by light microscopyon 09-17-2021 Epithelial cells.squamous LM Ql (Urine sed) 0-5 SEEN /hpf 0-5 [facility] Work Phone: Thin prep Papanicolaou smear with manual screeningon 09-17-2021 Thin prep Papanicolaou smear with manual screening 19 U/L 15-37 [facility] Work Phone: [phone] Thin prep Papanicolaou smear with manual screening 7 5-15 [facility] Work Phone: [phone] Urine blood detectionon 04- RBC Ql (U) Negative Negative [facility] Work Phone: [phone] RBC Ql (U) 0 SEEN /hpf 0-5 [facility] Work Phone: Urine clarityon 09-17-2021 Clarity (U) Clear Clear [facility] Work Phone: Urine color determinationon 09-17-2021 Color (U) Yellow Yellow [facility] Work Phone: Urine glucose detectionon Glucose Ql (U) Normal mg/dl Normal [facility] Work Phone: Urine leukocyte esterase det ection by dipstickon 09-17-2021 Leukocyte esterase Test strip Ql (U) 25 /ul Negative [facility] Work Phone: Urine pHon 09-17-2021 pH (U) 6.0 [pH] 5.0 - 8.0 [facility] Work Phone: Urine sediment bacteria coun t by microscopy (number/high power field)on 09-17-2021 Bacteria LM.HPF (Urine sed) [#/Area] 1 /[HPF] None Seen [facility] Work Phone: Urine specific gravity measu rementon 09-17-2021 Specific gravity (U) [Rel density] 1.010 1.002-1.030 [facility] Work Phone: Urobilinogen Auto test strip Ql (U)on 09-17-2021 Urobilinogen Ql (U) Normal mg/dl Normal [facility] Work Phone: PT panel Coag (PPP)on 2021 INR Coag (Bld) [Relative time] 2.1 (EXT) 2.0 - 3.0 [facility] UA DIP, URINE (POC)on 2021 BILIRUBIN UA (POCT) Negative Negative [facility] CLARITY UA (POCT) Clear [facility] COLOR UA (POCT) Yellow [facility] GLUCOSE UA (POCT) Negative Negative mg/dL [facility] HEMOGLOBIN/BLOOD UA (POCT) Trace-lysed Abnormal Negative [facility] KETONE UA (POCT) Negative Negative mg/dL [facility] LEUKOCYTES UA (POCT) Small Abnormal Negative [facility] NITRITE UA (POCT) Positive Abnormal Negative [facility] PH UA (POCT) 5.5 4.5 - 8.0 [facility] Protein Ql (U) 100 mg/dL Abnormal Negative mg/dL [facility] SPECIFIC GRAVITY UA (POCT) 1.020 1.005 - 1.030 [facility] UROBILINOGEN UA (POCT) 0.2 E.U./dL Malaika l E.U./dL [facility] Glucose Glucometer (BldC) [M ass/Vol]on 08-21-2021 Glucose [Mass/Vol] 102 mg/dL 74-106 [facility] Work Phone: Comment on above: MANAGEMENT OF PATIEN T CARE PER NURSING PROTOCOL INR in Blood by Coagulation assayon 08-21-2021 INR Coag (Bld) [Relative time] 1.2 {INR} [facility] Work Phone: Laboratory - Coagulationon 0 08-21-2021 PT Coag (PPP) [Time] 14.9 s 11.7-14.9 [facility] Work Phone: Absolute lymphocyte counton 08-20-2021 Lymphocytes Auto (Unsp spec) [#/Vol] 0.77 10*3/uL 0.83-4.51 [facility] Work Phone: Basophil percentageon 2021 Basophils/100 WBC (Bld) 0.8 % 0-1 [facility] Work Phone: Bilirubin [Mass/Vol] 0.70 mg/dL 0.20-1.00 [facility] Work Phone: Comment on above: For patients on eltr ombopag therapy, use of Dimension [place] TBIL is not recommended. Chloride [Moles/Vol] 107 mmol/L 98-107 [facility] Work Phone: Eosinophils/100 WBC (Bld) 2.2 % 0-5 [facility] Work Phone: Glucose [Mass/Vol] 99 mg/dL 74-106 [facility] Work Phone: Neutrophils (Bld) [#/Vol] 4.9 10*3/uL 2.0-7.7 [facility] Work Phone: Neutrophils/100 WBC (Bld) 77.2 % 47-70 [facility] Work Phone: Potassium [Moles/Vol] 3.7 mmol/L 3.5-5.1 [facility] Work Phone: Protein [Mass/Vol] 6.2 g/dL 6.4-8.2 [facility] Work Phone: Sodium [Moles/Vol] 139 mmol/L 136-145 [facility] Work Phone: WBC (Bld) [#/Vol] 6.3 10*3/uL 4.4-11.0 [facility] Work Phone: Blood erythrocytes count (nu mber/volume)on 08-20-2021 RBC (Bld) [#/Vol] 3.72 10*6/uL 4.6-6.2 [facility]: Blood hemoglobin measurement (mass/volume)on 08-20-2021 Hemoglobin (Bld) [Mass/Vol] 7.8 g/dL 13.0-16.5 [facility] Work Phone: Blood lymphocytes/100 leukoc yteson 08-20-2021 Lymphocytes/100 WBC (Bld) 12.2 % 19-41 [facility] Work Phone: Blood monocytes/100 leukocyt eson 08-20-2021 Monocytes/100 WBC (Bld) 6.8 % 0-10 [facility] Work Phone: Blood platelet mean volumeon 08-20-2021 Platelet mean volume (Bld) [Entitic vol] 9.7 fL 6.2-12.0 [facility] Work Phone: Determination of erythrocyte mean corpuscular volume (MCV)on 08-20-2021 MCV (RBC) [Entitic vol] 72.8 fL 80-94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 [facility] Comment on above: Performed By: #### C BC BMP, PT ####[place] [phone] CO2 [Moles/Vol] 25 mmol/L Normal 23-32 [facility] Comment on above: Performed By: #### C LARRY BMP, PT ####[place] [phone] Creatinine [Mass/Vol] 0.69 mg/dL Low 0.70-1.40 [facility] Comment on above: Performed By: #### Edilma JUAREZ BMP, PT ####[place] [phone] eGFR- Amer. >60 Normal >60 [facility] Comment on above: Performed By: #### C LARRY BMP, PT ####[place] [phone] GFR/1.73 sq M predicted among non-blacks MDRD (S/P/Bld) [Vol rate/Area] mL/min/{1.73_m2} Normal >60 [facility] Comment on above: Performed By: #### C LARRY BMP, PT ####[place] [phone] Glucose [Mass/Vol] 100 mg/dL Normal 65-100 [facility] Comment on above: Performed By: #### C LARRY BMP, PT ####[place] [phone] Potassium [Moles/Vol] 3.9 mmol/L Normal 3.5-5.0 [facility] Comment on above: Performed By: #### C BC BMP, PT ####[place] [phone] Sodium [Moles/Vol] 137 mmol/L Normal 135-146 [facility] Comment on above: Performed By: #### C KATHY JUAREZ, PT ####[facility] [place], [place] [phone] Urea nitrogen [Mass/Vol] 8 mg/dL Low 10-25 [facility] Comment on above: Performed By: #### C KATHY JUAREZ, PT ####[facility] [place], [place] [phone] CASE MANAGEMon 10-14-2019 CASE MANAGEM HNO ID: [id number] Author: Guadalupe Yee (Sw) Service: ? Author Type: Adobe Layer Type: Care Mgt Progress Note Filed: 10/14/2019 10:14 AM Note Text: CARE MANAGEMENT DISCHARGE NOTE SERVICE DATE: 10/14/2019 SERVICE TIME: 9:59 AM LOS: 6 days Admission Date: 10/08/2019 DISCHARGE ARRANGEMENT (list agency and phone number) Discharge Arrangement: Home Assisted Care: Nursing;OT Provider Name: [facility] CAREGIVER ASSESSMENT: Caregiver is ready, willing and able to meet the patient's needs as recommended by the inter-professional team:: Yes Does the patient have an acute stroke diagnosis, or has the patient had a stroke during this admission?: No Patient's transition needs and plan for meeting these needs: [facility] HANDOFF COMMUNICATION: Handoff to: Primary Care Physician Fine Arts Instructor Name/Phone: Daija Morton/[phone] Primary Care Physician Name/Phone: Daija Morton TRANSPORTATION ARRANGEMENTS: Transportation Arrangements: Car ADDITIONAL CONTACT RESOURCES: Discharge Information Row Name Admission (Current) from 10/08/[address] [facility] Health Care Agency [facility] Start of Care 10/16/19 Patient will be discharged home today. Patient reports his family will be here to transport him home. D/C order and AVS was sent to [facility] agency. Patient updated on his denial notice and the need to be d/c today before noon today. Addendum- Spoke with [facility] agency about drawn INR on Monday. [facility] agency reported they would provide a SOC on Monday. Updated PA to write orders to have INR drawn on Monday per [facility] request. SIGNATURE: SHANE CLEMONS PATIENT NAME: Pedro Pablo Sierra DATE: October 14, 2019 TIME: 9:58 AM PAGER/CONTACT #: [phone] Normal [facility] CBCon 10-14-2019 Erythrocyte distribution width (RBC) [Ratio] 15.9 % High 11.5-15.0 [facility] Comment on above: Performed By: #### C BC, BMP, PT ####[place] [phone] Hematocrit (Bld) [Volume fraction] 28.2 % Low 39.0-51.0 [facility] Comment on above: Performed By: #### C LARRY BMP, PT ####[address] [phone] Hemoglobin (Bld) [Mass/Vol] 9.0 g/dL Low 13.0-17.0 [facility] Comment on above: Performed By: #### C BC, BMP, PT ####[address] [phone] MCH (RBC) [Entitic mass] 29.8 pG Normal 26.0-34.0 [facility] Comment on above: Performed By: #### C BC, BMP, PT ####[address] [phone] MCHC (RBC) [Mass/Vol] 31.9 g/dL Normal 30.5-36.0 [facility] Comment on above: Performed By: #### C BC, BMP, PT ####[address] [phone] MCV (RBC) [Entitic vol] 93.4 fL Normal 80.0-100.0 [facility] Comment on above: Performed By: #### C BC, BMP, PT ####[place] [phone] Platelet mean volume (Bld) [Entitic vol] 9.8 fL Normal 9.0-12.7 [facility] Comment on above: Performed By: #### C KATHY JUAREZ, PT ####[facility] [place], [place] [phone] Platelets (Bld) [#/Vol] 225 10*3/uL Normal 150-400 [facility] Comment on above: Performed By: #### C KATHY JUAREZ, PT ####[facility] [place], [place] [phone] RBC (Bld) [#/Vol] 3.02 10*6/uL Low 4.20-6.00 [facility] Comment on above: Performed By: #### C KATHY JUAREZ, PT ####[place] [phone] [place], [place] [phone] WBC (Bld) [#/Vol] 4.88 10*3/uL Normal 3.70-11.00 [facility] Comment on above: Performed By: #### KATHY HARRISON, PT ####[place] [phone] [place], [place] [phone] NURSING PROGon 10-14-2019 NURSING PROG HNO ID: [id number] Author: Fran (Rn) ОЛЕГ Solorio Service: ? Author Type: Registered Nurse Type: Nursing Progress Note Filed: 10/14/2019 6:05 PM Note Text: Nursing Progress Note Patient Name: Pedro Pablo Sierra Patient Location: [place] [address] [address] __ Daily Note: Patient was resting comfortably [...] note was completed by: Fran Solorio RN [facility] NUTRITIONon 10-14-2019 NUTRITION HNO ID: [id number] Author: Muna Rivas Service: Nutrition Therapy Author [...] and weekends please page the Group Pager -[phone] [facility] PLAN OF CAREon 10-14-2019 PLAN OF CARE HNO ID: [id number] Author: Sherly Quigley (Fur Tinter) Service: Pharmacy Author Type: Bulk Folder Type: Plan of Care Filed: 10/15/2019 11:12 AM Note Text: FINANCIAL PROJECT MANAGER BEDSIDE DELIVERY SURVEY 1. Patient to use [facility] Bedside Delivery - NO prefer own pharmacy Insurance Information as follows: 2. Insurance card on file - NO 3. Credit card for payment - NO [facility] PLAN OF CARE HNO ID: [id number] Author: Roman Girard Service: Vascular Surgery Author [...] Morton stated that she would have her Silo Filler call him today to make a post dc followup virtual appt on 10/15 to go over INR results. - [facility] talent acquisition relationship manager coordinated with Home health and scheduled INR check on 10/15 -Pt's ex is picking pt up for discharge to home at 1200 per pt Roman Girard PLASMA CENTER TECHNICIAN/LEARNING SPECIALIST Vascular Surgery Pager: [phone] [facility] PROGRESSon 10-14-2019 PROGRESS HNO ID: [id number] Author: Ayad Tompkins MD Service: Vascular Surgery [...] -- 10/11/19 0945 activity - mobilize patient ([place]) 10/08/19 1645 pneumatic compression stockings ([place]) VTE Prophylaxis: on AC ALLERGIES No Known [...] w/ rest pain and is s/p L INDUSTRIAL RELATIONS WORKER EA w/ bovine patch, L RADHA and EIA thrombectomy, L CI and EI stenting 10/07 c/b thrombosis s/p EIA to INDUSTRIAL RELATIONS WORKER bypass graft w. Ringed PTFE 10/09. Plan: INR in range, will resume home coumadin regimen; d/c lovenox Reg diet, HLIV PO pain meds Cont. plavix Dressing changes PRN to groin Dispo: D/c home with C today Ayad Tompkins MD General Surgery, PGY-3 For questions Monday through Monday 6am to 6pm please page Red Team [phone] For questions during nights (6pm - 6am) and weekends, please contact the General Surgery Field Crop Farmworker pager, [phone] Normal [facility] Protimeon 10-14-2019 PT Coag (PPP) [Time] 27.5 s High 9.7-13.0 [facility] Comment on above: Performed By: #### C BC, BMP, PT ####[facility] [place], [place] [phone] PT Coag (PPP) [Time] 2.6 s High 0.9-1.3 [facility] Comment on above: Result Comment: Teri min K Antagonist (VKA) Therapeutic Range: INR 2 to 3 (Target INR of 2.5) Note: For patients treated with VKA drugs, such as warfarin, the [employer] 2012 Guideline recommends [...] Performed By: #### C BC, BMP, PT ####[facility] [place], [place] [phone] THERAPY NTon 10-14-2019 THERAPY NT HNO ID: [id number] Author: Shakir Freeman (Pt) Mode Service: Physical Therapy Author Type: Physical Therapist Type: Therapy (PT/OT/Speech/Resp) Filed: 10/14/2019 10:40 AM Note Text: Physical Therapy Treatment SERVICE DATE: 10/14/2019 SERVICE TIME: 1003 to 1026 ROOM: [place] [address] Recommended Discharge Disposition: Home PT Anticipated Discharge [...] ness on feet Interventions Provided: Gait Training (23282);Therapeutic Activity (41341) Therapeutic Activity (33684) Treatment Minutes: 10 1 unit Skilled Intervention(s): [...] in position prior to mobility Gait Training (12527) Treatment Minutes: 13 1 unit Skilled Intervention(s): [...] Consult : PVD s/p L LE redo INDUSTRIAL RELATIONS WORKER endarterectomy, L profundoplasty, iliac stenting on 10/08/19 Relevant Past Medical History: S/p L femoral endarterectomy/aoroili ac stenting Patient Report: Pt agreeable to participate in therapy session. Pt having coughing spells intermittently during functional mobility, stating that he gets light headed when this occurs (vascular team was notified). Home Environment Patient Lives With: Self/Alone Assistance Available: timers inspector Entry To Home: Stairs;Other: See Comment(stair lift) [...] DATE: October 14, 2019 TIME: 10:37 AM [facility] THERAPY NT HNO ID: [id number] Author: Caitlin Thomas Service: Occupational Therapy Author Type: Occupational Therapist Type: Therapy (PT/OT/Speech/Resp) Filed: 10/14/2019 10:18 AM Note Text: OCCUPATIONAL THERAPY MISSED VISIT SERVICE DATE: 10/14/2019 SERVICE TIME: 920 to 920 ROOM: [place] [address] Attempted Treatment. Patient not seen due to Declined. Pt declines OT tx stating, Not until after dinner. OT explains that it is 9 in the morning with pt verbalizing understanding and continuing to decline therapy at this time. Continue OT per POC as able. SIGNATURE: OMAYRA Granados/Daisha PATIENT NAME: Pedro Pablo Sierra DATE: October 14, 2019 TIME: 10:17 AM [facility] Basic Metabolic Panlon 10-12 Anion gap [Moles/Vol] 10 mmol/L Normal 9-18 [facility] Comment on above: Performed By: #### C BC, BMP, PT ####[place] [phone] Calcium [Mass/Vol] 8.1 mg/dL Low 8.5-10.5 [facility] Comment on above: Performed By: #### C BC, BMP, PT ####[place] [phone] Chloride [Moles/Vol] 102 mmol/L Normal 98-110 [facility] Comment on above: Performed By: #### C LARRY, BMP, PT ####[place] [phone] CO2 [Moles/Vol] 26 mmol/L Normal 23-32 [facility] Comment on above: Performed By: #### C LARRY BMP, PT ####[place] [phone] Creatinine [Mass/Vol] 0.68 mg/dL Low 0.70-1.40 [facility] Comment on above: Performed By: #### C LARRY, BMP, PT ####[place] [phone] eGFR- Amer. >60 Normal >60 [facility] Comment on above: Performed By: #### C LARRY BMP, PT ####[place] [phone] GFR/1.73 sq M predicted among non-blacks MDRD (S/P/Bld) [Vol rate/Area] mL/min/{1.73_m2} Normal >60 [facility] Comment on above: Performed By: #### C LARRY, BMP, PT ####[place] [phone] Glucose [Mass/Vol] 103 mg/dL High 65-100 [facility] Comment on above: Performed By: #### C BC, BMP, PT ####[place] [phone] Potassium [Moles/Vol] 3.5 mmol/L Normal 3.5-5.0 [facility] Comment on above: Performed By: #### C LARRY BMP, PT ####[place] [phone] [place] [phone] Sodium [Moles/Vol] 138 mmol/L Normal 135-146 [facility] Comment on above: Performed By: #### C LARRY, BMP, PT ####[place] [address] [place] [phone] Urea nitrogen [Mass/Vol] 8 mg/dL Low 10-25 [facility] Comment on above: Performed By: #### C LARRY, BMP, PT ####[place] [phone] [place] [phone] CASE MANAGEMon 10-13-2019 CASE MANAGEM HNO ID: [id number] Author: Carly Hutchison) ОЛЕГ Man Service: Case [...] Pt states understanding. Pt aware he will [facility] services. AVS faxed to [facility] ( Waiver CM) SIGNATURE: Carly Man RN,BSN PATIENT NAME: Pedro Pablo Sierra DATE: October 13, 2019 TIME: 1:54 PM PAGER/CONTACT #: [phone] Normal [facility] CBCon 10-13-2019 Erythrocyte distribution width (RBC) [Ratio] 15.9 % High 11.5-15.0 [facility] Comment on above: Performed By: #### C LARRY BMP, PT ####[place] [phone] [place] [phone] Hematocrit (Bld) [Volume fraction] 26.2 % Low 39.0-51.0 [facility] Comment on above: Performed By: #### C LARRY, BMP, PT ####[place] [phone] [place] [phone] Hemoglobin (Bld) [Mass/Vol] 8.4 g/dL Low 13.0-17.0 [facility] Comment on above: Performed By: #### C KATHY JUAREZ, PT ####[place] [phone] MCH (RBC) [Entitic mass] 29.6 pG Normal 26.0-34.0 [facility] Comment on above: Performed By: #### C LARRY BMP, PT ####[place] [phone] MCHC (RBC) [Mass/Vol] 32.1 g/dL Normal 30.5-36.0 [facility] Comment on above: Performed By: #### C LARRY BMP, PT ####[place] [phone] MCV (RBC) [Entitic vol] 92.3 fL Normal 80.0-100.0 [facility] Comment on above: Performed By: #### C LARRY, BMP, PT ####[place] [phone] Platelet mean volume (Bld) [Entitic vol] 10.0 fL Normal 9.0-12.7 [facility] Comment on above: Performed By: #### C LARRY BMP, PT ####[place] [phone] Platelets (Bld) [#/Vol] 187 10*3/uL Normal 150-400 [facility] Comment on above: Performed By: #### C BC, BMP, PT ####[place] [phone] RBC (Bld) [#/Vol] 2.84 10*6/uL Low 4.20-6.00 [facility] Comment on above: Performed By: #### C BC, BMP, PT ####[place] [phone] WBC (Bld) [#/Vol] 4.79 10*3/uL Normal 3.70-11.00 [facility] Comment on above: Performed By: #### C LARRY, BMP, PT ####[facility] [place], [place] [phone] NURSING PROGon 10-13-2019 NURSING PROG HNO ID: [id number] Author: Stefania NessRn) ОЛЕГ García Service: ? Author Type: Registered Nurse Type: Nursing Progress Note Filed: 10/13/2019 10:12 AM Note Text: Nursing Progress Note Patient Name: Pedro Pablo Sierra Patient Location: -/-[id number] __ Daily Note:Patient expressed a desire to [...] note was completed by: Stefania García RN [facility] NURSING PROG HNO ID: [id number] Author: Emily NessRn) ОЛЕГ Linda Service: ? Author Type: Registered Nurse Type: Nursing Progress Note Filed: 10/13/2019 12:12 AM Note Text: Nursing Progress Note Patient Name: Pedro Pablo Sierra Patient Location: [id number] __ Daily Note: 2151-- pt resting in [...] reach. 0000-- page to on-call surgery team [id number]-- Pedro Pablo Sierra [id number]-- patients L groin cath site has frequent medium amount of serosanguinous drainage, dressing changed. small hematoma still present. just wanted to make aware. thanks, Emily [phone] 0008-- call back from Noman Fish, general surgery resident, says continue monitoring incision for larger amount of bloody drainage and dehiscence. This note was completed by: Emily Linda RN [facility] PROGRESSon 10-13-2019 PROGRESS HNO ID: [id number] Author: Noman Fish MD Service: General Surgery Author Type: Resident Type: Progress Notes Filed: 10/13/2019 7:13 AM Note Text: [facility] POSTOP PROGRESS NOTE Service Date: 10/13/2019Admit Date: 10/08/2019Service Time: 7:08 AM LOS: 5 day(s) Primary Service: Vascular Surgery Vascular Physician: Ryan May MD Interval Events/Issues: Drainage from incision site. Patient angry about discharge, wants pgbci-ujf-jxxuc care at home. Otherwise no acute events. [...] -- 10/11/19 0945 activity - mobilize patient ([place], [place]) 10/08/19 1645 pneumatic compression stockings ([place], [place]) VTE Prophylaxis: on AC ALLERGIES No [...] w/ rest pain and is s/p L INDUSTRIAL RELATIONS WORKER EA w/ bovine patch, L RADHA and EIA thrombectomy, L CI and EI stenting 10/07 c/b thrombosis s/p : EIA to INDUSTRIAL RELATIONS WORKER bypass graft w. Ringed PTFE 10/09. Plan: Continue lovenox to coumadin bridge Reg diet, HLIV PO pain meds S/p brittany-op abx No clark Cont. plavix Dressing changes PRN to groin Dispo: D/c home with [facility] today Noman Fish MD 7:09 AM 10/13/2019 See below: For questions Monday through Monday 6am to 6pm please page Red Team [phone] For questions during nights (6pm - 6am) and weekends, please contact the General Surgery Field C[employer] Farmworker pager, [phone] Normal [facility] Protimeon 10-13-2019 PT Coag (PPP) [Time] 30.6 s High 9.7-13.0 [facility] Comment on above: Performed By: #### C BC, BMP, PT ####[facility] [place], [place] [phone] PT Coag (PPP) [Time] 2.9 s High 0.9-1.3 [facility] Comment on above: Result Comment: Teri min K Antagonist (VKA) Therapeutic Range: INR 2 to 3 (Target INR of 2.5) Note: For patients treated with VKA drugs, such as warfarin, the [employer] 2012 Guideline recommends [...] Chest 2012, 141:7S-47S Gio RA, et al. [facility] 2017, 70: 252-289 Performed By: #### C BC, BMP, PT ####[address] [place], [place] [phone] THERAPY NTon 10-13-2019 THERAPY NT HNO ID: [id number] Author: Shakir Freeman (Pt) Mode Service: Physical Therapy Author Type: Physical Therapist Type: Therapy (PT/OT/Speech/Resp) Filed: 10/13/2019 1:35 PM Note Text: Physical Therapy Treatment SERVICE DATE: 10/13/2019 SERVICE TIME: 1235 to 1300 ROOM: [place] [address] Recommended Discharge Disposition: Home PT Anticipated Discharge [...] ness on feet Interventions Provided: Gait Training (38806) Gait Training (09451) Treatment Minutes: 25 2 units Skilled Intervention(s): [...] Consult : PVD s/p L LE redo INDUSTRIAL RELATIONS WORKER endarterectomy, L profundoplasty, iliac stenting on 10/08/19 Relevant Past Medical History: S/p L femoral endarterectomy/aoroili ac stenting Patient Report: Pt agreeable to participate in therapy session Home Environment Patient Lives With: Self/Alone Assistance Available: timers inspector Entry To Home: Stairs;Other: See Comment(stair lift) [...] October 13, 2019 TIME: 1:34 PM Normal [facility] Basic Metabolic Panlon 10-11 Anion gap [Moles/Vol] 11 mmol/L Normal 9-18 [facility] Comment on above: Performed By: #### C BC, PT, BMP ####[place] [phone] Calcium [Mass/Vol] 8.1 mg/dL Low 8.5-10.5 [facility] Comment on above: Performed By: #### C BC, PT, BMP ####[place] [phone] Chloride [Moles/Vol] 98 mmol/L Normal 98-110 [facility] Comment on above: Performed By: #### C BC, PT, BMP ####[place] [phone] CO2 [Moles/Vol] 26 mmol/L Normal 23-32 [facility] Comment on above: Performed By: #### C BC, PT, BMP ####[place] [phone] Creatinine [Mass/Vol] 0.64 mg/dL Low 0.70-1.40 [facility] Comment on above: Performed By: #### C BC, PT, BMP ####[place] [phone] eGFR- Amer. >60 Normal >60 [facility] Comment on above: Performed By: #### C BC, PT, BMP ####[place] [phone] GFR/1.73 sq M predicted among non-blacks MDRD (S/P/Bld) [Vol rate/Area] mL/min/{1.73_m2} Normal >60 [facility] Comment on above: Performed By: #### C BC, PT, BMP ####[place] [phone] Glucose [Mass/Vol] 151 mg/dL High 65-100 [facility] Comment on above: Performed By: #### C BC, PT, BMP ####[place] [phone] Potassium [Moles/Vol] 3.6 mmol/L Normal 3.5-5.0 [facility] Comment on above: Performed By: #### C BC, PT, BMP ####[place] [phone] Sodium [Moles/Vol] 135 mmol/L Normal 135-146 [facility] Comment on above: Performed By: #### C BC, PT, BMP ####[place] [phone] Urea nitrogen [Mass/Vol] 8 mg/dL Low 10-25 [facility] Comment on above: Performed By: #### C LARRY, PT, BMP ####[place] [phone] CASE MANAGEMon 10-12-2019 CASE MANAGEM HNO ID: [id number] Author: Carly (Олег) ОЛЕГ Man Service: Case Management Author Type: Registered Nurse Type: Care Mgt Progress Note Filed: 10/12/2019 12:39 PM Note Text: CARE MANAGEMENT PROGRESS NOTE SERVICE DATE: 10/12/2019 SERVICE TIME: 1230 LOS: 4 days Needs Prior to Discharge: To Be Determined Clinicals faxed to [facility] SIGNATURE: Carly Man RN,BSN PATIENT NAME: Pedro Pablo Sierra DATE: October 12, 2019 TIME: 12:38 PM PAGER/CONTACT #: [phone] [facility] CASE MANAGEM HNO ID: [id number] Author: Carly (Rn) Donovan RN Service: Case [...] 12, 2019 TIME: 10:14 AM PAGER/CONTACT #: [phone] [facility] CBCon 10-12-2019 Erythrocyte distribution width (RBC) [Ratio] 16.0 % High 11.5-15.0 [facility] Comment on above: Performed By: #### C BC, PT, BMP ####[facility] [place], [place] [phone] Hematocrit (Bld) [Volume fraction] 29.3 % Low 39.0-51.0 [facility] Comment on above: Performed By: #### C BC, PT, BMP ####[facility] [place], [place] [phone] Hemoglobin (Bld) [Mass/Vol] 9.7 g/dL Low 13.0-17.0 [facility] Comment on above: Performed By: #### C BC, PT, BMP ####[place] [phone] MCH (RBC) [Entitic mass] 30.3 pG Normal 26.0-34.0 [facility] Comment on above: Performed By: #### C BC, PT, BMP ####[place] [phone] MCHC (RBC) [Mass/Vol] 33.1 g/dL Normal 30.5-36.0 [facility] Comment on above: Performed By: #### C BC, PT, BMP ####[place] [phone] MCV (RBC) [Entitic vol] 91.6 fL Normal 80.0-100.0 [facility] Comment on above: Performed By: #### C BC, PT, BMP ####[place] [phone] Platelet mean volume (Bld) [Entitic vol] 10.2 fL Normal 9.0-12.7 [facility] Comment on above: Performed By: #### C BC, PT, BMP ####[place] [phone] Platelets (Bld) [#/Vol] 173 10*3/uL Normal 150-400 [facility] Comment on above: Performed By: #### C BC, PT, BMP ####[place] [phone] RBC (Bld) [#/Vol] 3.20 10*6/uL Low 4.20-6.00 [facility] Comment on above: Performed By: #### C BC, PT, BMP ####[place] [phone] WBC (Bld) [#/Vol] 5.98 10*3/uL Normal 3.70-11.00 [facility] Comment on above: Performed By: #### C BC, PT, BMP ####[place] [address] [place], [place] [phone] NURSING PROGon 10-12-2019 NURSING PROG HNO ID: [id number] Author: Daphney (Rn) ОЛЕГ Baron Service: Nursing Author Type: Registered Nurse Type: Nursing Progress Note Filed: 10/12/2019 4:25 PM Note Text: Nursing Progress Note Patient Name: Pedro Pablo Sierra Patient Location: [place] [address]/[id number] __ Daily Note: 0900: Pt up to chair with 2 assist and walker. Pt states left leg is painful, but able to bear weight. Pt does not want to be discharged at this time, PT/OT recommending skilled, pt refusing and wanting home care around the clock. Pt requesting robitussin for cough, given at 0841 per order. 1130: Pt assisted to bathroom with nursing director and walker. Pt was able to ambulate from bathroom to bed using walker with standby assist. 1610: Incision to left groin oozing serosang drainage. Gown saturated and needed to be changed. Abd and paper tape applied to cover and collect drainage. Pt c/o pain to left groin, 8/10. Medicated with 10mg po oxycodone. This note was completed by: Daphney Baron RN [facility] PROGRESSon 10-12-2019 PROGRESS HNO ID: [id number] Author: Elly (Azalea) Stephanie Service: Vascular Surgery [...] -- 10/11/19 0945 activity - mobilize patient (me,hi) 10/08/19 1645 pneumatic compression stockings ([place], [place]) VTE Prophylaxis: on AC ALLERGIES No [...] w/ rest pain and is s/p L INDUSTRIAL RELATIONS WORKER EA w/ bovine patch, L RADHA and EIA thrombectomy, L CI and EI stenting 10/07 c/b thrombosis s/p : EIA to INDUSTRIAL RELATIONS WORKER bypass graft w. Ringed PTFE 10/09. Plan: [...] CRISPIN stenting on 10/23, UC, CAD previous MS, DM, HTN, HLD, COPD Overall Course: 63 year old male with acute onset of BLE pain. Taken to OR for initiation of thrombolysis thru LCIA/TORITO Procedure/Surgeries: 1. Aortogram with bilateral ileofemoral runoff via left brachial artery 2. Left leg angiogram, 3rd order 3. Placement of lysis catheter from distal aorta to left SFA, 20cm treatment [facility] Thrombectomy Airway Difficulty: NA OR Course: [...] and weekends, please contact the General Surgery [employer] C[employer] Farmworker pager, [phone] Normal [facility] Protimeon 10-12-2019 PT Coag (PPP) [Time] 15.6 s High 9.7-13.0 [facility] Comment on above: Performed By: #### C BC, PT, BMP ####[facility] [place], [place] [phone] PT Coag (PPP) [Time] 1.5 s High 0.9-1.3 [facility] Comment on above: Result Comment: Teri min K Antagonist (VKA) Therapeutic Range: INR 2 to 3 (Target INR of 2.5) Note: For patients treated with VKA drugs, such as warfarin, the [employer] 2012 Guideline recommends [...] Chest 2012, 141:7S-47S Gio RA, et al. [facility] 2017, 70: 252-289 Performed By: #### C BC, PT, [facility] ####[facility] [place], [place] [phone] ANES POSTPROC EVALon 020 ANES POSTPROC EVAL HNO ID: [id number] Author: Cassie Zavala Service: ? Author Type: Anesthesiologist Type: Anesthesia Postprocedure Evaluation Filed: 10/11/2019 7:41 AM Note Text: POST ANESTHESIA EVALUATION NOTE : 1950 Procedure Summary Date: 10/10/19 Room / Location: [address] / OR Anesthesia Start: 54 Anesthesia [...] October 11, 2019 TIME: 7:41 AM CSN: [id number] Normal [facility] Basic Metabolic Panlon 10-10 Anion gap [Moles/Vol] 9 mmol/L Normal 9-18 [facility] Comment on above: Performed By: #### C BC, BMP, MG1, PHOS ####[place] [phone] Calcium [Mass/Vol] 7.7 mg/dL Low 8.5-10.5 [facility] Comment on above: Performed By: #### C BC, BMP, MG1, PHOS ####[place] [phone] Chloride [Moles/Vol] 101 mmol/L Normal 98-110 [facility] Comment on above: Performed By: #### C BC, BMP, MG1, PHOS ####[place] [phone] CO2 [Moles/Vol] 26 mmol/L Normal 23-32 [facility] Comment on above: Performed By: #### C BC, BMP, MG1, PHOS ####[place] [phone] Creatinine [Mass/Vol] 0.63 mg/dL Low 0.70-1.40 [facility] Comment on above: Performed By: #### C BC, BMP, MG1, PHOS ####[place] [phone] eGFR- Amer. >60 Normal >60 [facility] Comment on above: Performed By: #### C BC, BMP, MG1, PHOS ####[place] [phone] GFR/1.73 sq M predicted among non-blacks MDRD (S/P/Bld) [Vol rate/Area] mL/min/{1.73_m2} Normal >60 [facility] Comment on above: Performed By: #### C BC, BMP, MG1, PHOS ####[place] [phone] Glucose [Mass/Vol] 107 mg/dL High 65-100 [facility] Comment on above: Performed By: #### C BC, BMP, MG1, PHOS ####[place] [phone] Potassium [Moles/Vol] 3.9 mmol/L Normal 3.5-5.0 [facility] Comment on above: Performed By: #### C BC, BMP, MG1, PHOS ####[place] [phone] Sodium [Moles/Vol] 136 mmol/L Normal 135-146 [facility] Comment on above: Performed By: #### C BC, BMP, MG1, PHOS ####[place] [phone] Urea nitrogen [Mass/Vol] 8 mg/dL Low 10-25 [facility] Comment on above: Performed By: #### C BC, BMP, MG1, PHOS ####[place] [phone] [facility] HNO ID: [id number] Author: Bri (Rn) ОЛЕГ Swann Service: Case Management Author Type: Registered Nurse Type: Care Mgt Initial Assessment Filed: 10/11/2019 2:43 PM Note Text: CARE MANAGEMENT PROGRESS NOTE SERVICE DATE: 10/11/2019 SERVICE TIME: 2:38 PM LOS: 3 days [place] of Choice Given: Yes Level of Care Discussed: Home Care Financial Disclosure Provided: Yes Financial Disclosure Comments: discussed Needs Prior to Discharge: To Be Determined;Home Care Order CM discussed with pt discharge planning. pt has his home set up for his needs with elevator and refusing rehab at this time due to Covid 19 risks. Pt was active with [facility] for nurse visit and prefers to continue. CM made referral via ascripts, pt will need F2F for PT/OT/SN at d/c. CM flagged weekend CM staff for potential d/c this weekend and will need AVS faxed at d/c to [phone]. CM to follow as needed. SIGNATURE: Bri Swann RN,BSN PATIENT NAME: Pedro Pablo Sierra DATE: October 11, 2019 TIME: 2:38 PM PAGER/CONTACT #: [phone] Normal [facility] CBCon 10-11-2019 Erythrocyte distribution width (RBC) [Ratio] 15.8 % High 11.5-15.0 [facility] Comment on above: Performed By: #### C BC, BMP, MG1, PHOS ####[place] [phone] Hematocrit (Bld) [Volume fraction] 27.2 % Low 39.0-51.0 [facility] Comment on above: Performed By: #### C BC, BMP, MG1, PHOS ####[place] [phone] Hemoglobin (Bld) [Mass/Vol] 8.9 g/dL Low 13.0-17.0 [facility] Comment on above: Performed By: #### C BC, BMP, MG1, PHOS ####[phone] MCH (RBC) [Entitic mass] 29.4 pG Normal 26.0-34.0 [facility] Comment on above: Performed By: #### C BC, BMP, MG1, PHOS ####[place] [phone] MCHC (RBC) [Mass/Vol] 32.7 g/dL Normal 30.5-36.0 [facility] Comment on above: Performed By: #### C BC, BMP, MG1, PHOS ####[place] [phone] MCV (RBC) [Entitic vol] 89.8 fL Normal 80.0-100.0 [facility] Comment on above: Performed By: #### C BC, BMP, MG1, PHOS ####[place] [phone] Platelet mean volume (Bld) [Entitic vol] 9.9 fL Normal 9.0-12.7 [facility] Comment on above: Performed By: #### C BC, BMP, MG1, PHOS ####[place] [phone] Platelets (Bld) [#/Vol] 140 10*3/uL Low 150-400 [facility] Comment on above: Performed By: #### C BC, BMP, MG1, PHOS ####[place] [phone] RBC (Bld) [#/Vol] 3.03 10*6/uL Low 4.20-6.00 [facility] Comment on above: Performed By: #### C BC, BMP, MG1, PHOS ####[place] [phone] WBC (Bld) [#/Vol] 5.78 10*3/uL Normal 3.70-11.00 [facility] Comment on above: Performed By: #### C BC, BMP, MG1, PHOS ####[place] [phone] Magnesiumon 10-11-2019 Magnesium [Mass/Vol] 2.0 mg/dL Normal 1.7-2.6 [facility] Comment on above: Performed By: #### C BC, BMP, MG1, PHOS ####[phone] NURSING PROGon 10-11-2019 NURSING PROG HNO ID: [id number] Author: Briana (Rn) ОЛЕГ Hardy Service: ? Author Type: Registered Nurse Type: Nursing Progress Note Filed: 10/11/2019 2:37 PM Note Text: Nursing Progress Note Patient Name: Pedro Pablo Sierra Patient Location: [id number]/[facility] __ Daily Note: 0700. Bedside report received from transmission assembler RN. Patient is resting comfortably in bed [...] removed. 1408. Report called to RN on [facility] who will be resuming care of patient. 1430. Patient transferred to [facility] via bed on portable O2. All belongings and chart sent with patient. This note was completed by: Briana Hardy RN [facility] PROGRESSon 10-11-2019 PROGRESS HNO ID: [id number] Author: Noman Fish MD Service: Vascular Surgery [...] CRISPIN stenting on 10/23, UC, CAD previous MS, DM, HTN, HLD, COPD Overall Course: 63 year old male with acute onset of BLE pain. Taken to OR for initiation of thrombolysis thru LCIA/TORITO Procedure/Surgeries: 1. Aortogram with bilateral ileofemoral runoff via left brachial artery 2. Left leg angiogram, 3rd order 3. Placement of lysis catheter from distal aorta to left SFA, 20cm treatment zone [facility] 07/02/2014 Thrombectomy Airway Difficulty: NA OR Course: [...] TIME: 7:24 AM PAGER/CONTACT #: See Below [phone] For questions Monday through Monday 6am to 6pm please page Red Team [phone] For questions during nights (6pm - 6am) and weekends, please contact the General Surgery Field C[employer] Farmworker pager, [phone] Normal [facility] PROGRESS HNO ID: [id number] Author: Rashawn Huntley Service: Critical Care Author [...] INTRAVENOUS q 2 H PRN Elly (Res) Trudy[place] 25 mcg at 10/11/19 0648 - hyoscyamine [...] tab(s) (PLAVIX) 75 mg ORAL DAILY Roman (Film Washer) Heinly 75 mg at 10/10/19816 - polyethylene glycol 3350 17 g packet (MIRALAX, GLYCOLAX) 17 g ORAL DAILY PRN Elly (Res) [place]-Jennifer - docusate sodium 100 mg cap(s) (COLACE) 100 mg ORAL BID Elly (Res) [place]-Jennifer 100 mg at 10/10/192202 - budesonide 0.25 mg/2 mL 0.25 mg (PULMICORT) 0.25 mg INHALATION BID Elly (Res) [place] 0.25 mg at 10/10/192046 And - ipratropium-albuterol 3 mL nebulizer solution (DUONEB) 3 mL INHALATION QID Elly (Res) [place]-Jennifer 3 mL at 10/10/192046 - NaCl 0.9% iv infusion 100 mL/hr INTRAVENOUS CONTINUOUS Elly (Res) [place] 100 mL/hr at 10/10/191999 100 mL/hr at [...] hospitalization are listed below. Plese refer to [facility] for a full listing of cultures obtained during this hospitalization. ? N/A DIAGNOSTIC TESTS: The following diagnostic tests/findings were reviewed: ? Most recent labs and imaging results. MOST RECENT CXR FINDINGS: Bibasilar atelectasis. OPERATIVE PROCEDURE(S): Date of surgery: 10/08/19 Procedure: Left common INDUSTRIAL RELATIONS WORKER endarterectomy with bovine path Left profundoplasty Left iliac stenting X4 (I-Cast X2, Jessica X2) Multiple angiograms with angioplasty Surgeon: Dr. May Date of surgery: 10/10/19 Procedure: Left EIA to INDUSTRIAL RELATIONS WORKER bypass with 7mm ringed PTFE end to end proximally to the previously placed bovine patch end to side distally. Completion angiogram Retrograde open RADHA angioplasty with 8 x 80 mustang balloon. Open thrombectomy L iliac artery by leg incision. Surgeon: Dr. 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 May on 10/08/19. She is admitted to SICU post-operatively for neurovascular checks and close hemodynamic monitoring. Developed L INDUSTRIAL RELATIONS WORKER occlusion POD2 and taken back to OR on 10/10/19 for left groin hematoma evacuation, left EIA to INDUSTRIAL RELATIONS WORKER PTFE bypass, left liac thrombectomy. Transferred to [...] -Tubes: Clark -Prophylaxis: SCDs -Dispo: Transfer to [facility] Medication and Non-Pharmacologic VTE Prophylaxis/Anticoagul ants Anticoagulant AND Antiplatelet Medications (From admission, onward) Start Dose Route Frequency Ordered Stop 10/10/19 0900 clopidogrel 75 mg tab(s) (PLAVIX) 75 mg ORAL DAILY 10/09/19 1043 -- 10/08/19 1700 activity - mobilize patient ([place], [place]) 10/08/19 1645 pneumatic compression stockings ([place], [place]) VTE Prophylaxis: Contraindicated elevated risk of bleeding To be seen and discussed on rounds with SICU staff: Dr. Huntley ICU Checklist --------- --- VTE Prophylaxis: SIGNATURE: Misael Jeter MD PATIENT NAME: Pedro Pablo Sierra DATE: October 11, 2019 TIME: 6:40 AM PAGER/CONTACT #: [phone] [facility] STAFF PHYSICIAN NOTE OF PERSONAL INVOLVEMENT IN [...] HTN GERD ? Procedure/Surgeon 10/08/19 S/P L INDUSTRIAL RELATIONS WORKER endarterectomy with bovine path, profundoplasty and iliac [...] DO 11:08 AM October 11, 2019 Normal [facility] Phosphoruson 10-11-2019 Phosphate [Mass/Vol] 1.9 mg/dL Low 2.5-4.5 [facility] Comment on above: Performed By: #### C BC, BMP, MG1, PHOS ####[address] [phone] Protimeon 10-11-2019 PT Coag (PPP) [Time] 10.9 s Normal 9.7-13.0 [facility] Comment on above: Performed By: #### P T ####[address] [phone] PT Coag (PPP) [Time] 1.0 s Normal 0.9-1.3 [facility] Comment on above: Result Comment: Teri min K Antagonist (VKA) Therapeutic Range: INR 2 to 3 (Target INR of 2.5) Note: For patients treated with VKA drugs, such as warfarin, the [employer] 2012 Guideline recommends [...] Chest 2012, 141:7S-47S Gio KENNY et al. [facility] 2017, 70: 252-289 Performed By: #### P T ####[facility] [place], [place] [phone] THERAPY NTon 10-11-2019 THERAPY NT HNO ID: [id number] Author: Gini (Pt) Eugenia Melvin Service: Physical Therapy Author Type: Physical Therapist Type: Therapy (PT/OT/Speech/Resp) Filed: 10/11/2019 10:43 AM Note Text: Physical Therapy Treatment SERVICE DATE: 10/11/2019 SERVICE TIME: 35 to 1020 ROOM: [id number] Recommended Discharge Disposition: Home PT Anticipated Discharge [...] Diagnosis: Reduced mobility-other Interventions Provided: Therapeutic Activity (61146);Therapeutic Exercise (83335);Gait Training (49102) Therapeutic Exercise (17109) Treatment Minutes: 15 1 unit Skilled Intervention(s): Instruction in therapeutic exercise supine, very gentle with Daisha GOOD. Edu on rationale of exercises. Therapeutic Activity (91101) Treatment Minutes: 20 1 unit Skilled Intervention(s): Instructed patient in supine to sit pushing with upper extremities to sit up Instructed patient in supine to and from sit pushing with upper extremities to sit up Instruction in sit to stand technique with proper hand placement and body positioning at edge of bed/chair Gait Training (67554) Treatment Minutes: 10 1 unit Skilled Intervention(s): Instruction in sequencing, gait pattern and Instruction in correction of gait deviations Total Timed Code Treatment Minutes: 45 Total Treatment Time (minutes): 45 SUBJECTIVE: Current Hospital Course: Chart reviewed and no significant medical updates relevant to therapy were noted Reason for Physical Therapy Consult : PVD s/p L LE redo INDUSTRIAL RELATIONS WORKER endarterectomy, L profundoplasty, iliac stenting on 10/08/19 Relevant Past Medical History: S/p L femoral endarterectomy/aoroili ac stenting Patient Report: My Left leg is incredibly sore right now, moving is going to have to be slow. (And it is.) Home Environment Patient Lives With: Self/Alone Assistance Available: timers inspector Entry To Home: Stairs;Other: See Comment(stair lift) [...] October 11, 2019 TIME: 10:40 AM Normal [facility] THERAPY NT HNO ID: [id number] Author: Caitlin Thomas Service: Occupational Therapy Author Type: Occupational Therapist Type: Therapy (PT/OT/Speech/Resp) Filed: 10/11/2019 6:48 AM Note Text: OCCUPATIONAL THERAPY MISSED VISIT SERVICE DATE: 10/11/2019 SERVICE TIME: 0647 to 0647 ROOM: [id number] Attempted Treatment. Patient not seen due to Incomplete Orders. Pt is currently on bedrest. Please update activity orders when medically appropriate for participation in Occupational Therapy treatment and out of bed mobility. Thank you. SIGNATURE: Caitlin Thomas OTR/L PATIENT NAME: Pedro Pablo Sierra DATE: October 11, 2019 TIME: 6:47 AM Normal [facility] ABG Complete Eval FOR WEST U SE ONLYon 10-10-2019 Base Excess 1 mmol/L Normal [facility] Comment on above: Result Comment: -3 t o 3 Performed By: #### A BGRTC ####[place] [id number] [place] [phone] Calcium [Mass/Vol] 1.29 mmol/L Normal 1.15-1.35 [facility] Comment on above: Performed By: #### A BGRTC ####[place] [phone] Carboxyhemoglobin,Art 1.0 % Normal <2.0 [facility] Comment on above: Performed By: #### A BGRTC ####[place] [phone] Chloride, Whole Bld FOR WEST USE ONLY 105 mmol/L Normal 98-107 [facility] Comment on above: Performed By: #### A BGRTC ####[place] [phone] CO2 [Moles/Vol] 27 mmol/L Normal 22.0-28.0 [facility] Comment on above: Performed By: #### A BG[facility] ####[place] [phone] Glucose [Mass/Vol] 132 mg/dL High 65-100 [facility] Comment on above: Performed By: #### A BGRTC ####[place] [phone] HCO3 (Bld) [Moles/Vol] 26 mmol/L Normal 22-26 [facility] Comment on above: Performed By: #### A BGRTC ####[facility] [place], [place] [phone] Hematocrit (Bld) [Volume fraction] 26.3 % Low 42.0-52.0 [facility] Comment on above: Performed By: #### A [facility] ####[place] [phone] Hemoglobin (Bld) [Mass/Vol] 8.5 g/dL Low 14-18 [facility] Comment on above: Performed By: #### A [facility] ####[place] [phone] Lactate [Moles/Vol] 1.5 mmol/L Normal 0.4-2.0 [facility] Comment on above: Performed By: #### A [facility]RTC ####[place] [phone] Methemoglobin 1.4 % Normal 0.4-1.5 [facility] Comment on above: Performed By: #### A [facility] ####[place] [phone] O2 Administered 21.0 Normal [facility] Comment on above: Performed By: #### A [facility] ####[place] [phone] Oxygen (Bld) [Partial pressure] 136 mm Hg High 80-100 [facility] Comment on above: Performed By: #### A [facility]RTC ####[place] [phone] Oxygen (Bld) [Partial pressure] 99 % High 90-98 [facility] Comment on above: Performed By: #### A [facility] ####[place] [phone] Oxyhemoglobin, Art. 96 % Normal 94-100 [facility] Comment on above: Performed By: #### A [facility]RTC ####[place] [phone] pCO2 46 mm Hg Normal 35-48 [facility] Comment on above: Performed By: #### A [facility]RTC ####[place] [phone] pH (Bld) 7.37 [pH] Normal 7.35-7.45 [facility] Comment on above: Performed By: #### A [facility]RTC ####[place] [phone] PO2FI FOR WEST USE ONLY 648 mmHG High 400-500 [facility] Comment on above: Performed By: #### A [facility]RTC ####[place] [phone] Potassium [Moles/Vol] 3.9 mmol/L Normal 3.5-5.0 [facility] Comment on above: Performed By: #### A [facility]RTC ####[place] [phone] Sodium [Moles/Vol] 137 mmol/L Normal 135-145 [facility] Comment on above: Performed By: #### A [facility]RTC ####[place] [phone] Base Excess 2 mmol/L Normal [facility] Comment on above: Result Comment: -3 t o 3 Performed By: #### A [facility]RTC ####[place] [phone] Calcium [Mass/Vol] 1.09 mmol/L Low 1.15-1.35 [facility] Comment on above: Performed By: #### A [facility]RTC ####[phone] Carboxyhemoglobin,Art 1.3 % Normal <2.0 [facility] Comment on above: Performed By: #### A [facility]RTC ####[place] [phone] Chloride, Whole Bld FOR WEST USE ONLY 106 mmol/L Normal 98-107 [facility] Comment on above: Performed By: #### A [facility]RTC ####[place] [phone] CO2 [Moles/Vol] 28 mmol/L Normal 22.0-28.0 [facility] Comment on above: Performed By: #### A [facility]RTC ####[place] [phone] Glucose [Mass/Vol] 129 mg/dL High 65-100 [facility] Comment on above: Performed By: #### A [facility]RTC ####[facility] [place] [phone] HCO3 (Bld) [Moles/Vol] 27 mmol/L High 22-26 [facility] Comment on above: Performed By: #### A [facility] ####[place] [phone] Hematocrit (Bld) [Volume fraction] 24.6 % Low 42.0-52.0 [facility] Comment on above: Performed By: #### A [facility] ####[place] [phone] Hemoglobin (Bld) [Mass/Vol] 7.9 g/dL Low 14-18 [facility] Comment on above: Performed By: #### A [facility] ####[place] [phone] Lactate [Moles/Vol] 1.1 mmol/L Normal 0.4-2.0 [facility] Comment on above: Performed By: #### A [facility]RTC ####[place] [phone] Methemoglobin 1.2 % Normal 0.4-1.5 [facility] Comment on above: Performed By: #### A [facility]RTC ####[place] [phone] O2 Administered 21.0 [facility] Comment on above: Performed By: #### A [facility]RTC ####[place] [phone] Oxygen (Bld) [Partial pressure] 164 mm Hg High 80-100 [facility] Comment on above: Performed By: #### A [facility] ####[place] [phone] [place] [phone] Oxygen (Bld) [Partial pressure] 99 % High 90-98 [facility] Comment on above: Performed By: #### A [facility] ####[place] [phone] Oxyhemoglobin, Art. 97 % Normal 94-100 [facility] Comment on above: Performed By: #### A [facility] ####[place] [phone] pCO2 44 mm Hg Normal 35-48 [facility] Comment on above: Performed By: #### A [facility]RTC ####[place] [phone] pH (Bld) 7.40 [pH] Normal 7.35-7.45 [facility] Comment on above: Performed By: #### A [facility] ####[place] [phone] PO2FI FOR WEST USE ONLY 781 mmHG High 400-500 [facility] Comment on above: Performed By: #### A [facility] ####[place] [phone] Potassium [Moles/Vol] 3.6 mmol/L Normal 3.5-5.0 [facility] Comment on above: Performed By: #### A [facility] ####[place] [phone] Sodium [Moles/Vol] 137 mmol/L Normal 135-145 [facility] Comment on above: Performed By: #### A [facility] ####[place] [phone] ALLIED HEALTHon 10-10-2019 ALLIED HEALTH HNO ID: [id number] Author: William Renee (Rt) Service: Radiology Author Type: Bulk Folder Type: Allied Health Filed: 10/10/2019 6:31 AM [...] RT Víctor October 10, 2019 6:31 AM [facility] ANES PRE-OPon 10-10-2019 ANES PRE-OP HNO ID: [id number] Author: Joey Markveronika Service: ? Author Type: [...] (+) Hypertension (+) PVD (peripheral vascular disease) ([facility]) (+) s/p left femoral endarterectomy/aortoil iac stenting 10/08/2019 (now with L INDUSTRIAL RELATIONS WORKER occlusion) PULMONARY (+) COPD (chronic obstructive pulmonary disease) ([facility]) (+) PJ (obstructive sleep apnea) ANESTHESIA (+) PJ (obstructive sleep apnea) NEURO-PSYCH (+) Headache GI (+) GERD (gastroesophageal reflux disease) Other (+) Anemia due to acute blood loss (Hgb 7.4 this AM; will order 2 units PRBCs) (+) Lupus anticoagulant disorder ([facility]) I - PHYSICAL EVALUATION AIRWAY Patient intubated: [...] (iso-osmotic) 100 mL (ANCEF) 2 g INTRAVENOUS 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 - COMPOUNDED PRESCRIPTION Aerosol supplies Dx:J44.1 NPI#[id number] - ipratropium-albuterol (DUONEB) 0.5 mg-3 mg(2.5 mg [...] October 10, 2019 TIME: 8:21 AM CSN: [id number] Normal [facility] APTTon 10-10-2019 aPTT Coag (Bld) [Time] 25.4 s Normal 23.0-32.4 [facility] Comment on above: Result Comment: Unfr actionated [...] laboratory APTT reagent in use throughout the [facility]. Performed By: #### C BCDIF, PTT, FIBCT, PT ####[facility] [place], [place] [phone] aPTT Coag (Bld) [Time] 126.3 s High 23.0-32.4 [facility] Comment on above: Result Comment: Unfr actionated [...] laboratory APTT reagent in use throughout the [facility]. Called to and read back by: Landry Quintana RN [place] [facility]10[facility]19 Royce Mccormick Performed By: #### C BCDIF, BMP, MG1, PHOS, PTT, PT ####[facility] [place], [place] [phone] aPTT Coag (Bld) [Time] 44.1 s High 23.0-32.4 [facility] Comment on above: Result Comment: Unfr actionated [...] laboratory APTT reagent in use throughout the [facility]. Performed By: #### P TT ####[place] [phone] Basic Metabolic Panlon 10-09 Anion gap [Moles/Vol] 11 mmol/L Normal 9-18 [facility] Comment on above: Performed By: #### C BCDIF, BMP, MG1, PHOS, PTT, PT ####[place] [phone] Calcium [Mass/Vol] 8.0 mg/dL Low 8.5-10.5 [facility] Comment on above: Performed By: #### C BCDIF, BMP, MG1, PHOS, PTT, PT ####[place] [phone] Chloride [Moles/Vol] 103 mmol/L Normal 98-110 [facility] Comment on above: Performed By: #### C BCDIF, BMP, MG1, PHOS, PTT, PT ####[place] [phone] CO2 [Moles/Vol] 24 mmol/L Normal 23-32 [facility] Comment on above: Performed By: #### C BCDIF, BMP, MG1, PHOS, PTT, PT ####[place] [phone] Creatinine [Mass/Vol] 0.68 mg/dL Low 0.70-1.40 [facility] Comment on above: Performed By: #### C BCDIF, BMP, MG1, PHOS, PTT, PT ####[place] [phone] eGFR- Amer. >60 Normal >60 [facility] Comment on above: Performed By: #### C BCDIF, BMP, MG1, PHOS, PTT, PT ####[place] [phone] GFR/1.73 sq M predicted among non-blacks MDRD (S/P/Bld) [Vol rate/Area] mL/min/{1.73_m2} Normal >60 [facility] Comment on above: Performed By: #### C BCDIF, BMP, MG1, PHOS, PTT, PT ####[place] [phone] Glucose [Mass/Vol] 127 mg/dL High 65-100 [facility] Comment on above: Performed By: #### C BCDIF, BMP, MG1, PHOS, PTT, PT ####[place] [phone] Potassium [Moles/Vol] 4.3 mmol/L Normal 3.5-5.0 [facility] Comment on above: Performed By: #### C BCDIF, BMP, MG1, PHOS, PTT, PT ####[place] [phone] Sodium [Moles/Vol] 138 mmol/L Normal 135-146 [facility] Comment on above: Performed By: #### C BCDIF, BMP, MG1, PHOS, PTT, PT ####[place] [phone] Urea nitrogen [Mass/Vol] 9 mg/dL Low 10-25 [facility] Comment on above: Performed By: #### C BCDIF, BMP, MG1, PHOS, PTT, PT ####[place] [phone] Anion gap [Moles/Vol] 8 mmol/L Low 9-18 [facility] Comment on above: Performed By: #### C BC, BMP, MG1, PHOS ####[place] [phone] Calcium [Mass/Vol] 7.9 mg/dL Low 8.5-10.5 [facility] Comment on above: Performed By: #### C BC, BMP, MG1, PHOS ####[place] [phone] Chloride [Moles/Vol] 101 mmol/L Normal 98-110 [facility] Comment on above: Performed By: #### C BC, BMP, MG1, PHOS ####[place] [phone] CO2 [Moles/Vol] 27 mmol/L Normal 23-32 [facility] Comment on above: Performed By: #### C BC, BMP, MG1, PHOS ####[place] [phone] Creatinine [Mass/Vol] 0.69 mg/dL Low 0.70-1.40 [facility] Comment on above: Performed By: #### C BC, BMP, MG1, PHOS ####[place] [phone] eGFR- Amer. >60 Normal >60 [facility] Comment on above: Performed By: #### C BC, BMP, MG1, PHOS ####[place] [phone] GFR/1.73 sq M predicted among non-blacks MDRD (S/P/Bld) [Vol rate/Area] mL/min/{1.73_m2} Normal >60 [facility] Comment on above: Performed By: #### C BC, BMP, MG1, PHOS ####[place] [phone] Glucose [Mass/Vol] 107 mg/dL High 65-100 [facility] Comment on above: Performed By: #### C BC, BMP, MG1, PHOS ####[place] [phone] Potassium [Moles/Vol] 3.8 mmol/L Normal 3.5-5.0 [facility] Comment on above: Performed By: #### C BC, BMP, MG1, PHOS ####[place] [phone] Sodium [Moles/Vol] 136 mmol/L Normal 135-146 [facility] Comment on above: Performed By: #### C BC, BMP, MG1, PHOS ####[place] [phone] Urea nitrogen [Mass/Vol] 11 mg/dL Normal 10-25 [facility] Comment on above: Performed By: #### C BC, BMP, MG1, PHOS ####[place] [phone] CASE MANAGEMon 10-10-2019 CASE MANAGEM HNO ID: [id number] Author: Bri Hutchison) ОЛЕГ Swann Service: Case [...] 10, 2019 TIME: 4:23 PM PAGER/CONTACT #: [phone] Normal [facility] CBCon 10-10-2019 Erythrocyte distribution width (RBC) [Ratio] 16.0 % High 11.5-15.0 [facility] Comment on above: Performed By: #### C BC, BMP, MG1, PHOS ####[place] [phone] Hematocrit (Bld) [Volume fraction] 23.2 % Low 39.0-51.0 [facility] Comment on above: Performed By: #### C BC, BMP, MG1, PHOS ####[place] [phone] Hemoglobin (Bld) [Mass/Vol] 7.5 g/dL Low 13.0-17.0 [facility] Comment on above: Performed By: #### C BC, BMP, MG1, PHOS ####[place] [phone] MCH (RBC) [Entitic mass] 30.1 pG Normal 26.0-34.0 [facility] Comment on above: Performed By: #### C BC, BMP, MG1, PHOS ####[place] [phone] MCHC (RBC) [Mass/Vol] 32.3 g/dL Normal 30.5-36.0 [facility] Comment on above: Performed By: #### C BC, BMP, MG1, PHOS ####[place] [phone] MCV (RBC) [Entitic vol] 93.2 fL Normal 80.0-100.0 [facility] Comment on above: Performed By: #### C BC, BMP, MG1, PHOS ####[place] [phone] Platelet mean volume (Bld) [Entitic vol] 9.8 fL Normal 9.0-12.7 [facility] Comment on above: Performed By: #### C BC, BMP, MG1, PHOS ####[place] [phone] Platelets (Bld) [#/Vol] 180 10*3/uL Normal 150-400 [facility] Comment on above: Performed By: #### C BC, BMP, MG1, PHOS ####[place] [phone] RBC (Bld) [#/Vol] 2.49 10*6/uL Low 4.20-6.00 [facility] Comment on above: Performed By: #### C BC, BMP, MG1, PHOS ####[place] [phone] WBC (Bld) [#/Vol] 6.64 10*3/uL Normal 3.70-11.00 [facility] Comment on above: Performed By: #### C BC, BMP, MG1, PHOS ####[place] [phone] CBC and Differentialon 10-09 Abs Baso 0.03 k/uL Normal <0.11 [facility] Comment on above: Performed By: #### C BCDIF, PTT, FIBCT, PT ####[place] [phone] Abs Will 0.69 k/uL Normal <0.87 [facility] Comment on above: Performed By: #### C BCDIF, PTT, FIBCT, PT ####[place] [phone] Abs Neut 5.56 k/uL Normal 1.45-7.50 [facility] Comment on above: Performed By: #### C BCDIF, PTT, FIBCT, PT ####[place] [phone] Basophils/100 WBC (Bld) 0.4 % Normal [facility] Comment on above: Performed By: #### C BCDIF, PTT, FIBCT, PT ####[place] [phone] Eosinophils (Bld) [#/Vol] 10*3/uL Normal <0.46 [facility] Comment on above: Performed By: #### C BCDIF, PTT, FIBCT, PT ####[place] [phone] Eosinophils/100 WBC (Bld) 0.3 % Normal [facility] Comment on above: Performed By: #### C BCDIF, PTT, FIBCT, PT ####[place] [address] Erythrocyte distribution width (RBC) [Ratio] 16.9 % High 11.5-15.0 [facility] Comment on above: Performed By: #### C BCDIF, PTT, FIBCT, PT ####[place] [address] Hematocrit (Bld) [Volume fraction] 21.7 % Low 39.0-51.0 [facility] Comment on above: Performed By: #### C BCDIF, PTT, FIBCT, PT ####[place] [address] Hemoglobin (Bld) [Mass/Vol] 7.1 g/dL Low 13.0-17.0 [facility] Comment on above: Performed By: #### C BCDIF, PTT, FIBCT, PT ####[address] Lymphocytes (Bld) [#/Vol] 1.03 10*3/uL Normal 1.00-4.00 [facility] Comment on above: Performed By: #### C BCDIF, PTT, FIBCT, PT ####[place] [phone] Lymphocytes/100 WBC (Bld) 14.1 % Normal [facility] Comment on above: Performed By: #### C BCDIF, PTT, FIBCT, PT ####[place] [phone] MCH (RBC) [Entitic mass] 29.5 pG Normal 26.0-34.0 [facility] Comment on above: Performed By: #### C BCDIF, PTT, FIBCT, PT ####[address] [phone] MCHC (RBC) [Mass/Vol] 32.7 g/dL Normal 30.5-36.0 [facility] Comment on above: Performed By: #### C BCDIF, PTT, FIBCT, PT ####[place] [phone] MCV (RBC) [Entitic vol] 90.0 fL Normal 80.0-100.0 [facility] Comment on above: Performed By: #### C BCDIF, PTT, FIBCT, PT ####[place] [phone] Monocytes/100 WBC (Bld) 9.4 % Normal [facility] Comment on above: Performed By: #### C BCDIF, PTT, FIBCT, PT ####[place] [phone] Neutrophils/100 WBC (Bld) 75.8 % Normal [facility] Comment on above: Performed By: #### C BCDIF, PTT, FIBCT, PT ####[place] [phone] Platelet mean volume (Bld) [Entitic vol] 10.0 fL Normal 9.0-12.7 [facility] Comment on above: Performed By: #### C BCDIF, PTT, FIBCT, PT ####[place] [phone] Platelets (Bld) [#/Vol] 167 10*3/uL Normal 150-400 [facility] Comment on above: Performed By: #### C BCDIF, PTT, FIBCT, PT ####[place] [phone] RBC (Bld) [#/Vol] 2.41 10*6/uL Low 4.20-6.00 [facility] Comment on above: Performed By: #### C BCDIF, PTT, FIBCT, PT ####[place] [phone] WBC (Bld) [#/Vol] 7.33 10*3/uL Normal 3.70-11.00 [facility] Comment on above: Performed By: #### C BCDIF, PTT, FIBCT, PT ####[place] [address] Abs Baso 0.04 k/uL Normal <0.11 [facility] Comment on above: Performed By: #### C BCDIF, BMP, MG1, PHOS, PTT, PT ####[place] [address] Abs Will 0.56 k/uL Normal <0.87 [facility] Comment on above: Performed By: #### C BCDIF, BMP, MG1, PHOS, PTT, PT ####[place] [address] Abs Neut 5.40 k/uL Normal 1.45-7.50 [facility] Comment on above: Performed By: #### C BCDIF, BMP, MG1, PHOS, PTT, PT ####[address] Basophils/100 WBC (Bld) 0.6 % Normal [facility] Comment on above: Performed By: #### C BCDIF, BMP, MG1, PHOS, PTT, PT ####[place] [address] DTYPE Auto Diff Normal [facility] Comment on above: Performed By: #### C BCDIF, PTT, FIBCT, PT ####[place] [address] Performed By: #### C BCDIF, BMP, MG1, PHOS, PTT, PT ####[address] Eosinophils (Bld) [#/Vol] 0.06 10*3/uL Normal <0.46 [facility] Comment on above: Performed By: #### C BCDIF, BMP, MG1, PHOS, PTT, PT ####[place] [address] Eosinophils/100 WBC (Bld) 0.8 % Normal [facility] Comment on above: Performed By: #### C BCDIF, BMP, MG1, PHOS, PTT, PT ####[place] [address] Erythrocyte distribution width (RBC) [Ratio] 16.6 % High 11.5-15.0 [facility] Comment on above: Performed By: #### C BCDIF, BMP, MG1, PHOS, PTT, PT ####[place] [address] Hematocrit (Bld) [Volume fraction] 24.9 % Low 39.0-51.0 [facility] Comment on above: Performed By: #### C BCDIF, BMP, MG1, PHOS, PTT, PT ####[place] [address] Hemoglobin (Bld) [Mass/Vol] 8.3 g/dL Low 13.0-17.0 [facility] Comment on above: Performed By: #### C BCDIF, BMP, MG1, PHOS, PTT, PT ####[place] [phone] Lymphocytes (Bld) [#/Vol] 1.07 10*3/uL Normal 1.00-4.00 [facility] Comment on above: Performed By: #### C BCDIF, BMP, MG1, PHOS, PTT, PT ####[place] [phone] Lymphocytes/100 WBC (Bld) 15.0 % Normal [facility] Comment on above: Performed By: #### C BCDIF, BMP, MG1, PHOS, PTT, PT ####[place] [phone] MCH (RBC) [Entitic mass] 30.3 pG Normal 26.0-34.0 [facility] Comment on above: Performed By: #### C BCDIF, BMP, MG1, PHOS, PTT, PT ####[place] [phone] MCHC (RBC) [Mass/Vol] 33.3 g/dL Normal 30.5-36.0 [facility] Comment on above: Performed By: #### C BCDIF, BMP, MG1, PHOS, PTT, PT ####[place] [phone] MCV (RBC) [Entitic vol] 90.9 fL Normal 80.0-100.0 [facility] Comment on above: Performed By: #### C BCDIF, BMP, MG1, PHOS, PTT, PT ####[place] [phone] Monocytes/100 WBC (Bld) 7.9 % Normal [facility] Comment on above: Performed By: #### C BCDIF, BMP, MG1, PHOS, PTT, PT ####[place] [phone] Neutrophils/100 WBC (Bld) 75.7 % Normal [facility] Comment on above: Performed By: #### C BCDIF, BMP, MG1, PHOS, PTT, PT ####[place] [phone] Platelet mean volume (Bld) [Entitic vol] 9.8 fL Normal 9.0-12.7 [facility] Comment on above: Performed By: #### C BCDIF, BMP, MG1, PHOS, PTT, PT ####[place] [phone] Platelets (Bld) [#/Vol] 173 10*3/uL Normal 150-400 [facility] Comment on above: Performed By: #### C BCDIF, BMP, MG1, PHOS, PTT, PT ####[place] [phone] [place], [place] [phone] RBC (Bld) [#/Vol] 2.74 10*6/uL Low 4.20-6.00 [facility] Comment on above: Performed By: #### C BCDIF, BMP, MG1, PHOS, PTT, PT ####[place] [phone] [place] [phone] WBC (Bld) [#/Vol] 7.13 10*3/uL Normal 3.70-11.00 [facility] Comment on above: Performed By: #### C BCDIF, BMP, MG1, PHOS, PTT, PT ####[place] [phone] [place] [phone] Fibrinogenon 10-10-2019 Fibrinogen 410 mg/dL High 200-400 [facility] Comment on above: Performed By: #### C BCDIF, PTT, FIBCT, PT ####[place] [phone] HISTORY PHYSICALon 0 HISTORY PHYSICAL HNO ID: [id number] Author: Ryan May MD Service: Vascular Surgery Author Type: Physician Type: HANDP Filed: 10/10/2019 9:03 AM Note Text: As a result of the 09/03/19 order by [facility] Director Libby Harris M.D. to cancel non-essential surgeries that would use PPE, unless special criteria are met, I have reviewed the clinical record for this patient and have determined that the scheduled procedure meets the criteria to go forward because there is a threat of permanent dysfunction of an extremity or organ system. Possible thrombosis of the left INDUSTRIAL RELATIONS WORKER graft. Possible hematoma. Plan to reexplore, evacuate hematoma, possible ileo-femoral bypass vs fem-fem bypass. Jermaine May MD Normal [facility] Hematocriton 10-10-2019 Hematocrit (Bld) [Volume fraction] 23.1 % Low 39.0-51.0 [facility] Comment on above: Performed By: #### H CT, HGB ####[place] [id number] [place] [address] Hemoglobinon 10-10-2019 Hemoglobin (Bld) [Mass/Vol] 7.4 g/dL Low 13.0-17.0 [facility] Comment on above: Performed By: #### H CT, HGB ####[place] [address] Magnesiumon 10-10-2019 Magnesium [Mass/Vol] 1.8 mg/dL Normal 1.7-2.6 [facility] Comment on above: Performed By: #### C BCDIF, BMP, MG1, PHOS, PTT, PT ####[place] [address] Magnesium [Mass/Vol] 2.0 mg/dL Normal 1.7-2.6 [facility] Comment on above: Performed By: #### C BC, BMP, MG1, PHOS ####[place] [address] NURSING PROGon 10-10-2019 NURSING PROG HNO ID: [id number] Author: Yeimi (Rn) ОЛЕГ Wong Service: ? Author Type: Registered Nurse Type: Nursing Progress Note Filed: 10/11/2019 7:38 AM Note Text: Nursing Progress Note Patient Name: Pedro Pablo Sierra Patient Location: [id number]/[facility] __ Daily Note: 1899 Received bedside report from Josse AHUJA. 1999 Assessment complete. Please see all flowsheets. 2099 2 units of blood ordered per Dr. Johnson. 2199 Started 1 unit of PRBC per order. 2229 Dr. Johnson and charge loader Daphney rounding on pt. SBAR given. New orders received. 2214 Spoke [id number] with Dr. Johnson. Okay to go by cuff pressure. 2344 Started 1 unit of PRBC per order. 0000 Reassessment complete. Please see all flowsheets. 0130 Dr. Johnson at bedside. SBAR given. Per Dr. Johnson, draw AM labs at 0330. 0400 Reassessment complete. Please see all flowsheets. 0715 Bedside report given to Briana AHUJA. [facility] NURSING PROG HNO ID: [id number] Author: Fran NessRn) ОЛЕГ Quintana Service: Critical Care Author Type: Registered Nurse Type: Nursing Progress Note Filed: 10/10/2019 7:55 PM Note Text: Nursing Progress Note Patient Name: Pedro Pablo Sierra Patient Location: [id number]/-[facility]-0 245- __ Daily Note: 0800: Full assessment complete. 0810: Talking with Misael, who would like amlodipine held this AM, okay to give metoprolol, and okayed by vascular surgery resident to give plavix. 0830: OR team at bedside. SBAR report. Plan to give cefazolin and PRBCs in OR. [phone]: On the phone with Joseph (pt's ex-) who is concerned because she was not updated on when pt went to surgery and is not getting updates like before via text. Joseph is also stating that she signed papers at [facility] recently transfering Health Care POA into her name. Last AD is from 2013 with Michelle (daughter) as POA. 1042: Page to case management [place] 245 in OR Mr. Sierra [phone]: Ania (pt's ex-) states that she submitted papers recently while at [facility] that she is healthcare POA. Last AD I see is 2013 that has Michelle Richmond (pt's daughter) as POA. -Josse AHUJA [id number] 1600: pT disoriented to self and time emerging from anesthesia. 1620: Pt calling stone processing machine operator light stating he is bleeding. Upon assessment, blood seeping gown and chucks pad under pt. Pressure applied to L groin sight. Page to Dr. Jeter (surgical endoscopist). 162: Dr. Jeter at bedside, assuming full [...] note was completed by: Fran Quintana RN [facility] NURSING PROG HNO ID: [id number] Author: Chrystal (Rn) ОЛЕГ Jacob Service: Critical Care Author Type: Registered Nurse Type: Nursing Progress Note Filed: 10/10/2019 6:32 AM Note Text: Nursing Progress Note Patient Name: Pedro Pablo Sierra Patient Location: [id number]/[facility] Critical access hospital __ Daily Note: 190: Bedside handoff received from ОЛЕГ Patel. Patient resting in bed, Heparin gtt verified. Pulses dual checked 2000: Full assessment completed. See doc flowsheets. 0000: Reassessment completed. Pulses still present via dopplar. 0400: Reassessment completed. See doc flowsheets. 0545: Patient pulled out IV. Reduced access. Dr. Moody aware. IV fluids stopped. This note was completed by: Chrystal Jacob RN [facility] OPERATIVE NOon 10-10-2019 OPERATIVE NO HNO ID: [id number] Author: Ryan May MD Service: Vascular Surgery Author Type: Physician Type: Operative Report Filed: 10/10/2019 1:51 PM Note Text: OPERATIVE/PROCEDURE REPORT LOG ID: [id number] Surgery/Procedure Date: 10/10/2019 Incision/Procedure Start Time:9:52 AM Incision Close/Procedure End Time: 13:49 Surgeon(s)/Procedurali st(s) and Sprayer Hand(s): Surgeon(s) and Role: * Ryan May MD - Primary * Elly (Azalea) Stephanie - Resident - Assisting No Additional Staff Anesthesia: General Procedure(s): Left EIA to INDUSTRIAL RELATIONS WORKER bypass with 7mm ringed PTFE end to [...] to side to the patch. The proximal INDUSTRIAL RELATIONS WORKER was clamped with four orange clips. Flow [...] DATE: 10/10/2019 TIME: 1:40 PM PAGER/CONTACT #: [facility] PROGRESSon 10-10-2019 PROGRESS HNO ID: [id number] Author: Elly Brown Service: Vascular Surgery Author [...] (iso-osmotic) 100 mL (ANCEF) 2 g INTRAVENOUS Field Crop Farmworker to OR - NaCl 0.9% iv infusion [...] 1604 -- 10/08/19 1645 pneumatic compression stockings (me,oh) VTE Prophylaxis: on hep gtt ALLERGIES No [...] hematoma evacuation, possible thrombectomy, possible fem/fem. 2U stone processing machine operator to OR Ok to cont. AC Ancef stone processing machine operator to OR HOSPITALIZATION(S) Indication for admission/procedure: BLE pain Important/Relevant PMH/PSH: s/p left femoral endarterectomy with patch, US guided access RCFA, L profundaplasty, RUFUS recanalization AND stenting, CRISPIN stenting on 10/23, UC, CAD previous MS, DM, HTN, HLD, COPD Overall Course: 63 year old male with acute onset of BLE pain. Taken to OR for initiation of thrombolysis thru LCIA/TORITO Procedure/Surgeries: 1. Aortogram with bilateral ileofemoral runoff via left brachial artery 2. Left leg angiogram, 3rd order 3. Placement of lysis catheter from distal aorta to left SFA, 20cm treatment zone [facility] 07/02/2014 Thrombectomy Airway Difficulty: NA OR Course: [...] 10, 2019 TIME: 7:50 AM PAGER/CONTACT #: [phone] [facility] PROGRESS HNO ID: [id number] Author: Rashawn Huntley Service: Critical Care Author [...] CURRENT MEDICATIONS: Medications reviewed. Please refer to [facility] for list of inpatient medications. Current Facility-Administered [...] 0.25 mg (PULMICORT) 0.25 mg INHALATION BID uJliana Price) Akshat 0.25 mg at 10/09/191901 And [...] (iso-osmotic) 100 mL (ANCEF) 2 g INTRAVENOUS Field Crop Farmworker to OR Juliana Price) Akshat - NaCl [...] hospitalization are listed below. Plese refer to [facility] for a full listing of cultures obtained during this hospitalization. ? N/A DIAGNOSTIC TESTS: The following diagnostic tests/findings were reviewed: ? Most recent labs and imaging results. MOST RECENT CXR FINDINGS: Increased vascular markings, likely fluid overload. OPERATIVE PROCEDURE(S): Date of surgery: 10/08/19 Procedure: Left common INDUSTRIAL RELATIONS WORKER endarterectomy with bovine path Left profundoplasty Left iliac stenting X4 (I-Cast X2, Jessica X2) Multiple angiograms with angioplasty Surgeon: Dr. 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 May on 10/08/19. She is admitted to SICU post-operatively for neurovascular checks and close hemodynamic monitoring. Developed L INDUSTRIAL RELATIONS WORKER occlusion POD2 and going back to OR [...] -- 10/08/19 1700 activity - mobilize patient ([place], [place]) 10/08/19 1645 pneumatic compression stockings ([place], [place]) VTE Prophylaxis: VTE prophylaxis appropriate To be seen and discussed on rounds with SICU staff: Dr. Huntley ICU Checklist --------- --- VTE Prophylaxis: SIGNATURE: Misael Jeter MD PATIENT NAME: Pedro Pablo Sierra DATE: October 10, 2019 TIME: 6:40 AM PAGER/CONTACT #: [phone] [facility] STAFF PHYSICIAN NOTE OF PERSONAL INVOLVEMENT IN [...] HTN GERD ? Procedure/Surgeon 10/08/19 S/P L INDUSTRIAL RELATIONS WORKER endarterectomy with bovine path, profundoplasty and iliac [...] DO 7:56 AM October 10, 2019 Normal [facility] PTT,Anticoag Therapyon 10-09 aPTT Coag (Bld) [Time] 109.7 s High 23.0-32.4 Fa [facility] Comment on above: Result Comment: Unfr [...] laboratory APTT reagent in use throughout the [facility]. Called to and read back by: Landry Quintana RN [facility] 10/10/19 Noemí HOLLIS Performed By: #### P TTAC ####[address] [phone] Phosphoruson 10-10-2019 Phosphate [Mass/Vol] 3.0 mg/dL Normal 2.5-4.5 [facility] Comment on above: Performed By: #### C BCDIF, BMP, MG1, PHOS, PTT, PT ####[address] [phone] Phosphate [Mass/Vol] 2.1 mg/dL Low 2.5-4.5 [facility] Comment on above: Performed By: #### C BC, BMP, MG1, PHOS ####[address] [phone] Protimeon 10-10-2019 PT Coag (PPP) [Time] 10.5 s Normal 9.7-13.0 [facility] Comment on above: Performed By: #### C BCDIF, PTT, FIBCT, PT ####[place] [phone] PT Coag (PPP) [Time] 1.0 s Normal 0.9-1.3 [facility] Comment on above: Result Comment: Teri min K Antagonist (VKA) Therapeutic Range: INR 2 to 3 (Target INR of 2.5) Note: For patients treated with VKA drugs, such as warfarin, the [employer] 2012 Guideline recommends [...] By: #### C BCDIF, PTT, FIBCT, PT ####[place] [phone] Performed By: #### C BCDIF, BMP, MG1, PHOS, PTT, PT ####[place] [phone] PT Coag (PPP) [Time] 10.9 s Normal 9.7-13.0 [facility] Comment on above: Performed By: #### C BCDIF, BMP, MG1, PHOS, PTT, PT ####[place] [phone] SURGICAL PATHOLOGYon 020 SURGICAL PATHOLOGY Specimen originated from [facility] Specimen #: [id number] Submitting Physician: RYAN MAY FINAL DIAGNOSIS Left [...] x 1.0 cm. No vessel is seen. Special Events Director sections are submitted in formalin in one cassette. KVNevaeh/joseph 10/14/2019 [place] [address] Date of Report: 10/15/2019 Date of Procedure: 10/10/2019 Date of Receipt: 10/11/2019 Submitted by: RYAN MAY Location: [facility] Diagnostic interpretation performed at [place] [address]. IA Number: [id number] [facility] THERAPY NTon 10-10-2019 THERAPY NT HNO ID: [id number] Author: Shakir Freeman (Pt) Mode Service: Physical Therapy Author Type: Physical Therapist Type: Therapy (PT/OT/Speech/Resp) Filed: 10/10/2019 1:18 PM Note Text: .PHYSICAL THERAPY MISSED VISIT SERVICE DATE: 10/10/2019 SERVICE TIME: 1317 to 1317 ROOM: OR [place] ( OPERATING ROOM) Attempted Treatment. Patient not seen due to Surgery. SIGNATURE: Shakir G Mode, PT PATIENT NAME: Pedro Pablo Sierra DATE: October 10, 2019 TIME: 1:18 PM [facility] THERAPY NT HNO ID: [id number] Author: Caitlin Thomas Service: Occupational Therapy Author Type: Occupational Therapist Type: Therapy (PT/OT/Speech/Resp) Filed: 10/10/2019 7:37 AM Note Text: OCCUPATIONAL THERAPY MISSED VISIT SERVICE DATE: 10/10/2019 SERVICE TIME: 735 to 735 ROOM: [place] [address] Attempted Treatment. Patient not seen due to Surgery. Pt going back to OR. OT tx on hold today. Will continue to monitor. SIGNATURE: Caitlin Thomas OTR/L PATIENT NAME: Pedro Pablo Sierra DATE: October 10, 2019 TIME: 7:36 AM [facility] XR CHEST 1V FRONTAL PORTon 0 10-10-2019 [...] airspace opacities, which may relate to atelectasis. Filler Shredder Machine: SHANELL Transcribe Date/Time: Oct 10 2019 6:59A Dictated by : DULCE BARRON MD This examination was interpreted and the report reviewed and electronically signed by: DULCE BARRON MD on Oct 10 2019 7:00AM EST [id number] [facility] ALLIED HEALTHon 10-09-2019 ALLIED HEALTH HNO ID: [id number] Author: Markell Alonzo (Chaplain) Service: Spiritual Care [...] patient's RN who could page the on-call formulator compounder. ? To contact the Spiritual Care Department: Please call [phone]?or Page the On-Call Steam Drier Operator at pager [phone].??? Thank you for the opportunity to be of service. SIGNATURE: Chaplain Terry PATIENT NAME: Pedro Pablo Sierra DATE: October 09, 2019 TIME: 5:09 PM PAGER/CONTACT #: [phone] [facility] APTTon 10-09-2019 aPTT Coag (Bld) [Time] 20.8 s Low 23.0-32.4 [facility] Comment on above: Result Comment: Unfr actionated [...] laboratory APTT reagent in use throughout the [facility]. Performed By: #### C BC, BMP, MG1, PHOS, PTT, PT ####[facility] [place], [place] [phone] Basic Metabolic Panlon 10-08 Anion gap [Moles/Vol] 9 mmol/L Normal 9-18 [facility] Comment on above: Performed By: #### C BC, BMP, MG1, PHOS, PTT, PT ####[place] [phone] Calcium [Mass/Vol] 8.1 mg/dL Low 8.5-10.5 [facility] Comment on above: Performed By: #### C BC, BMP, MG1, PHOS, PTT, PT ####[place] [phone] Chloride [Moles/Vol] 101 mmol/L Normal 98-110 [facility] Comment on above: Performed By: #### C BC, BMP, MG1, PHOS, PTT, PT ####[place] [phone] CO2 [Moles/Vol] 26 mmol/L Normal 23-32 [facility] Comment on above: Performed By: #### C BC, BMP, MG1, PHOS, PTT, PT ####[place] [phone] Creatinine [Mass/Vol] 0.81 mg/dL Normal 0.70-1.40 [facility] Comment on above: Performed By: #### C BC, BMP, MG1, PHOS, PTT, PT ####[place] [phone] eGFR- Amer. >60 Normal >60 [facility] Comment on above: Performed By: #### C BC, BMP, MG1, PHOS, PTT, PT ####[place] [phone] GFR/1.73 sq M predicted among non-blacks MDRD (S/P/Bld) [Vol rate/Area] mL/min/{1.73_m2} Normal >60 [facility] Comment on above: Performed By: #### C BC, BMP, MG1, PHOS, PTT, PT ####[place] [phone] Glucose [Mass/Vol] 129 mg/dL High 65-100 [facility] Comment on above: Performed By: #### C BC, BMP, MG1, PHOS, PTT, PT ####[place] [phone] Potassium [Moles/Vol] 4.5 mmol/L Normal 3.5-5.0 [facility] Comment on above: Performed By: #### C BC, BMP, MG1, PHOS, PTT, PT ####[place] [phone] [place] [phone] Sodium [Moles/Vol] 136 mmol/L Normal 135-146 [facility] Comment on above: Performed By: #### C BC, BMP, MG1, PHOS, PTT, PT ####[place] [phone] [place] [phone] Urea nitrogen [Mass/Vol] 15 mg/dL Normal 10-25 [facility] Comment on above: Performed By: #### C BC, BMP, MG1, PHOS, PTT, PT ####[place] [phone] [place] [phone] CASE MANAGEMon 10-09-2019 CASE MANAGEM HNO ID: [id number] Author: Carly Hutchison) ОЛЕГ Man Service: Case [...] once a week. Pt nurse is from [facility] ). Carmen would like AVS faxed at d/c to [phone] SIGNATURE: Carly Man RN,BSN PATIENT NAME: Pedro Pablo Sierra DATE: October 09, 2019 TIME: 1:44 PM PAGER/CONTACT #: [phone] [facility] CASE MGT INIT [place] 2019 CASE MGT INIT JOSE HNO ID: [id number] Author: Carly (Rn) ОЛЕГ Man Service: Case Management Author Type: Registered Nurse Type: Care Mgt Initial Assessment Filed: 10/09/2019 12:41 PM Note Text: CARE MANAGEMENT: ASSESSMENT AND DISCHARGE PLAN SERVICE DATE: October 09, 2019 SERVICE TIME: 1240 PRIMARY CARE PHYSICIAN: DAIJA MORTON MD ADMISSION STATUS: Inpatient Needs Prior to Discharge: To Be Determined MEDICAL: [facility] MEDICARE Patient/Special Events Director Stated Goals: To improve my functional status;To have reduction in symptoms;To return home to life as it was Health Insurance: Medicare;Medicaid Health Issues Impacting Discharge Plan: Newly diagnosed;Chronic Newly Diagnosed: s/p Redo left INDUSTRIAL RELATIONS WORKER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 [place] [address] 07-26-2023 12:10-0500 Systolic blood pressure 107 mm[Hg] Dr. Daija Morton Work Phone: 6(193)780-791631 [place] [address] 07-26-2023 08:38-0500 Body temperature 97.8 [degF] Dr. Daija Morton Work Phone: 2(111)576-872731 [place] [address] 07-26-2023 06:59-0500 Inhaled oxygen flow rate 2 L/min Dr. Daija Morton Work Phone: 0(808)669-735631 [place] [address] 07-25-2023 16:00-0500 Body weight 51.[address] Daija Morton Work Phone: 0(623)181-234631 [place] [address] 07-24-2023 21:55-0500 Body mass index (BMI) [Ratio] 17.4 kg/m2 Dr. Daija Morton Work Phone: 4(232)565-450931 [place] [address] 07-24-2023 21:13-0500 Diastolic blood pressure 89 mm[Hg] Dr. Daija Morton Work Phone: 0(763)642-885231 [place] [address] 07-24-2023 21:13-0500 Heart rate 65 /min Dr. Daija Morton Work Phone: 9(724)113-158831 [place] [address] 07-24-2023 21:13-0500 Respiratory rate 16 /min Dr. Daija Morton Work Phone: 0(544)777-085431 [place] [address] 07-24-2023 21:13-0500 SaO2% (BldA) [Mass fraction] 91 % Dr. Daija Morton Work Phone: 3(565)594-880631 [place] [address] 07-24-2023 21:13-0500 Systolic blood pressure 210 mm[Hg] Dr. Daija Morton Work Phone: 5(927)828-633331 [place] [address] 07-24-2023 17:27-0500 Body mass index (BMI) [Ratio] 22.8 kg/m2 Dr. Daija Morton Work Phone: 1(260)424-787431 [place] [address] 07-24-2023 17:27-0500 Body weight [address] Daija Morton Work Phone: 1(204)704-035731 [place] [address] 07-24-2023 16:44-0500 Body height 172.[address] Daija Morton Work Phone: 7(359)891-496131 [place] [address] 07-24-2023 16:44-0500 Body temperature 96.7 [degF] Dr. Daija Morton Work Phone: 6(226)177-730631 [place] [address] 04-04-2023 11:37-0400 Diastolic blood pressure 79 mm[Hg] Dr. Daija Morton Work Phone: 9(125)011-677731 [place] [address] 04-04-2023 11:37-0400 Heart rate 44 /min Dr. Daija Morton Work Phone: 3(038)771-899731 [place] [address] 04-04-2023 11:37-0400 Systolic blood pressure 188 mm[Hg] Dr. Daija Morton Work Phone: 9(583)023-851231 [place] [address] 04-04-2023 10:02-0400 Body temperature 97.6 [degF] Dr. Daija Morton Work Phone: 6(044)608-105831 [place] [address] 04-04-2023 10:02-0400 Respiratory rate 18 /min Dr. Daija Morton Work Phone: 5(025)541-879731 [place] [address] 04-04-2023 10:02-0400 SaO2% (BldA) [Mass fraction] 92 % Dr. Daija Morton Work Phone: 5(075)351-900031 [place] [address] 04-03-2023 15:53-0400 Inhaled oxygen flow rate 2 L/min Dr. Daija Morton Work Phone: 0(988)493-090231 [place] [address] 03-31-2023 14:20-0400 Body mass index (BMI) [Ratio] 20.5 kg/m2 Dr. Daija Morton Work Phone: 6(557)908-241131 [place] [address] 03-31-2023 14:20-0400 Body weight [address] Daija Morton Work Phone: 4(298)917-051331 [place] [address] 03-31-2023 09:57-0400 Body height 175.[address] Daija Morton Work Phone: 4(961)759-586431 [place] [address] 03-30-2023 20:26-0400 Body temperature 96.7 [degF] Dr. Daija Morton Work Phone: 8(538)734-436831 [place] [address] 03-30-2023 20:26-0400 Diastolic blood pressure 78 mm[Hg] Dr. Daija Morton Work Phone: 2(520)960-957431 [place] [address] 03-30-2023 20:26-0400 Heart rate 71 /min Dr. Daija Morton Work Phone: 8(432)137-453431 [place] [address] 03-30-2023 20:26-0400 Respiratory rate 18 /min Dr. Daija Morton Work Phone: 9(889)841-214331 [place] [address] 03-30-2023 20:26-0400 SaO2% (BldA) [Mass fraction] 97 % Dr. Daija Morton Work Phone: 7(769)291-967831 [place] [address] 03-30-2023 20:26-0400 Systolic blood pressure 181 mm[Hg] Dr. Daija Morton Work Phone: 3(315)592-562731 [place] [address] 03-30-2023 14:10-0400 Body height 172.[address] Daija Morton Work Phone: 0(291)265-824531 [place] [address] 03-29-2023 19:22-0400 Body mass index (BMI) [Ratio] 21.9 kg/m2 Dr. Daija Morton Work Phone: 5(772)631-786031 [place] [address] 03-29-2023 19:22-0400 Body weight 65.[address] Daija Morton Work Phone: 0(079)800-161231 [place] [address] 03-29-2023 19:20-0400 Diastolic blood pressure 80 mm[Hg] Dr. Daija Morton Work Phone: 4(606)777-061831 [place] [address] 03-29-2023 19:20-0400 Heart rate 84 /min Dr. Daija Morton Work Phone: 1(898)821-950531 [place] [address] 03-29-2023 19:20-0400 Respiratory rate 18 /min Dr. Daija Morton Work Phone: 6(755)179-263031 [place] [address] 03-29-2023 19:20-0400 SaO2% (BldA) [Mass fraction] 92 % Dr. Daija Morton Work Phone: 4(576)641-408531 [place] [address] 03-29-2023 19:20-0400 Systolic blood pressure 195 mm[Hg] Dr. Daija Morton Work Phone: 0(611)442-579631 [place] [address] 03-29-2023 18:17-0400 Body temperature 97.6 [degF] Dr. Daija Morton Work Phone: 9(904)849-468831 [place] [address] 02-25-2023 19:41-0400 Diastolic blood pressure 87 mm[Hg] Dr. Daija Morton Work Phone: 0(685)465-521131 [place] [address] 02-25-2023 19:41-0400 Heart rate 67 /min Dr. Daija Morton Work Phone: 8(437)294-855431 [place] [address] 02-25-2023 19:41-0400 Respiratory rate 15 /min Dr. Daija Morton Work Phone: 3(394)711-639031 [place] [address] 02-25-2023 19:41-0400 SaO2% (BldA) [Mass fraction] 97 % Dr. Daija Morton Work Phone: 5(748)839-131131 [place] [address] 02-25-2023 19:41-0400 Systolic blood pressure 193 mm[Hg] Dr. Daija Morton Work Phone: 8(846)[phone] [place] [address] 02-25-2023 19:37-0400 Body mass index (BMI) [Ratio] 22.4 kg/m2 Dr. Daija Morton Work Phone: 4(184)011-710631 [place] [address] 02-25-2023 19:37-0400 Body weight 67.[address] Daija Morton Work Phone: [facility] 02-25-2023 17:22-0400 Body temperature 97 [degF] Dr. Daija Morton Work Phone: [facility] 02-18-2023 01:56-0400 Diastolic blood pressure 113 mm[Hg] [facility] 02-18-2023 01:56-0400 Heart rate 88 /min [facility] 02-18-2023 01:56-0400 Respiratory rate 16 /min [facility] 02-18-2023 01:56-0400 Systolic blood pressure 157 mm[Hg] [facility] 02-18-2023 01:00-0400 SaO2% (BldA) [Mass fraction] 98 % [facility] 02-17-2023 21:35-0400 Body mass index (BMI) [Ratio] 21.5 kg/m2 [facility] 02-17-2023 21:35-0400 Body weight 66.13 kg [facility] 02-17-2023 21:32-0400 Body height 175.26 cm [facility] 02-17-2023 21:32-0400 Body temperature 96.4 [degF] [facility] 12-31-2022 15:16-0400 Body height 173 cm [facility] 12-31-2022 15:16-0400 Body mass index (BMI) [Ratio] 21.7 kg/m2 [facility] 12-31-2022 15:16-0400 Body temperature 96.6 [degF] [facility] 12-31-2022 15:16-0400 Body weight 65.2 kg [facility] 12-31-2022 15:16-0400 Diastolic blood pressure 66 mm[Hg] [facility] 12-31-2022 15:16-0400 Heart rate 75 /min [facility] 12-31-2022 15:16-0400 Respiratory rate 15 /min [facility] 12-31-2022 15:16-0400 SaO2% (BldA) [Mass fraction] 93 % [facility] 12-31-2022 15:16-0400 Systolic blood pressure 118 mm[Hg] [facility] 12-26-2022 14:04-0400 Diastolic blood pressure 90 mm[Hg] Ryan May MD Work Phone: [facility] 12-26-2022 14:04-0400 Heart rate 50 /min Ryan May MD Work Phone: [facility] 12-26-2022 14:04-0400 Systolic blood pressure 207 mm[Hg] Ryan May MD Work Phone: [facility] 10-22-2022 21:40-0400 Diastolic Blood Pressure Non-Invasive [address] PRIYANKA FRANCO MD [facility] 10-22-2022 21:40-0400 Heart rate 88 /min DR PRIYANKA FRANCO MD [facility] 10-22-2022 21:40-0400 Respiratory rate 20 /min DR PRIYANKA FRANCO MD [facility] 10-22-2022 21:40-0400 Systolic Blood Pressure Non-Invasive [address] PRIYANKA FRANCO MD [facility] 10-22-2022 19:59-[address] PRIYAKNA FRANCO MD [facility] 10-22-2022 19:59-0400 Body temperature 98.6 [degF] DR RPIYANKA FRANCO MD [facility] 10-22-2022 19:59-0400 Diastolic Blood Pressure Non-Invasive [address] PRIYANKA FRANCO MD [facility] 10-22-2022 19:59-0400 Heart rate 97 /min DR PRIYANKA FRANCO MD [facility] 10-22-2022 19:59-0400 Respiratory rate 21 /min DR PRIYANKA FRANCO MD [facility] 10-22-2022 19:59-0400 Systolic Blood Pressure Non-Invasive [address] PRIYANKA FRANCO MD [facility] 10-21-2022 18:30-0400 Body height 172.72 cm [facility] 10-21-2022 18:30-0400 Body temperature 97.5 [degF] [facility] 10-21-2022 18:30-0400 Diastolic blood pressure 88 mm[Hg] [facility] 10-21-2022 18:30-0400 Heart rate 99 /min [facility] 10-21-2022 18:30-0400 Respiratory rate 16 /min [facility] 10-21-2022 18:30-0400 SaO2% (BldA) [Mass fraction] 96 % [facility] 10-21-2022 18:30-0400 Systolic blood pressure 168 mm[Hg] [facility] 08-27-2022 10:51-0500 Diastolic blood pressure 91 mm[Hg] Daija Morton MD Work Phone: [facility] 08-27-2022 10:51-0500 Heart rate 69 /min Daija Morton MD Work Phone: [facility] 08-27-2022 10:51-0500 Systolic blood pressure 212 mm[Hg] Daija Morton MD Work Phone: [facility] 08-27-2022 10:47-0500 Body temperature 97 [degF] Daija Morton MD Work Phone: [facility] 08-27-2022 10:47-0500 Body weight 71.22 kg Daija Morton MD Work Phone: [facility] 08-27-2022 10:47-0500 Respiratory rate 28 /min Daija Morton MD Work Phone: [facility] 08-27-2022 10:47-0500 SaO2% (BldA) [Mass fraction] 95 % Daija Morton MD Work Phone: [facility] 03-10-2022 10:10-0400 Diastolic blood pressure 90 mm[Hg] Anjel Older PLASMA CENTER TECHNICIAN.LEARNING SPECIALIST Work Phone: [facility] 03-10-2022 10:10-0400 Heart rate 88 /min Anjel Older PLASMA CENTER TECHNICIAN.LEARNING SPECIALIST Work Phone: [facility] 03-10-2022 10:10-0400 Respiratory rate 16 /min Anjel Older PLASMA CENTER TECHNICIAN.LEARNING SPECIALIST Work Phone: [facility] 03-10-2022 10:10-0400 Systolic blood pressure 158 mm[Hg] Anjel Older PLASMA CENTER TECHNICIAN.LEARNING SPECIALIST Work Phone: [facility] 03-08-2022 23:13-0400 Diastolic blood pressure 93 mm[Hg] Dr. Daija Morton Work Phone: [facility] Work Phone: 03-08-2022 23:13-0400 Heart rate 71 /min Dr. Daija Motron Work Phone: [facility] Work Phone: 03-08-2022 23:13-0400 Inhaled oxygen flow rate 3 L/min Dr. Daija Morton Work Phone: [facility] Work Phone: 03-08-2022 23:13-0400 Respiratory rate 16 /min Dr. Daija Morton Work Phone: [facility] Work Phone: 03-08-2022 23:13-0400 SaO2% (BldA) [Mass fraction] 96 % Dr. Daija Morton Work Phone: [facility] Work Phone: 03-08-2022 23:13-0400 Systolic blood pressure 178 mm[Hg] Dr. Daija Morton Work Phone: [facility] Work Phone: 03-08-2022 17:31-0400 Body height 172.[address] Daija Morton Work Phone: [facility] Work Phone: 03-08-2022 17:31-0400 Body mass index (BMI) [Ratio] 20.5 kg/m2 Dr. Daija Morton Work Phone: [facility] Work Phone: 03-08-2022 17:31-0400 Body temperature 97.6 [degF] Dr. Daija Morton Work Phone: [facility] Work Phone: 03-08-2022 17:31-0400 Body weight 61.[address] Daija Morton Work Phone: [facility] Work Phone: 03-07-2022 17:28-0400 Respiratory rate 18 /min Dr. Daija Morton Work Phone: [facility] Work Phone: 03-07-2022 15:23-0400 Body height 172.[address] Daija Morton Work Phone: [facility] Work Phone: 03-07-2022 15:23-0400 Body mass index (BMI) [Ratio] 20.5 kg/m2 Dr. Daija Morton Work Phone: [facility] Work Phone: 03-07-2022 15:23-0400 Body temperature 97.4 [degF] Dr. Daija Morton Work Phone: [facility] Work Phone: 03-07-2022 15:23-0400 Body weight 61.[address] Daija Morton Work Phone: [facility] Work Phone: 03-07-2022 15:23-0400 Diastolic blood pressure 88 mm[Hg] Dr. Daija Morton Work Phone: [facility] Work Phone: 03-07-2022 15:23-0400 Heart rate 84 /min Dr. Daija Morton Work Phone: [facility] Work Phone: 03-07-2022 15:23-0400 SaO2% (BldA) [Mass fraction] 93 % Dr. Daija Morton Work Phone: [facility] Work Phone: 03-07-2022 15:23-0400 Systolic blood pressure 193 mm[Hg] Dr. Daija Morton Work Phone: [facility] Work Phone: 03-02-2022 19:05-0400 Diastolic blood pressure 81 mm[Hg] Dr. Daija Morton Work Phone: [facility] Work Phone: 03-02-2022 19:05-0400 Heart rate 56 /min Dr. Daija Morton Work Phone: [facility] Work Phone: 03-02-2022 19:05-0400 Respiratory rate 18 /min Dr. Daija Morton Work Phone: [facility] Work Phone: 03-02-2022 19:05-0400 SaO2% (BldA) [Mass fraction] 92 % Dr. Daija Morton Work Phone: [facility] Work Phone: 03-02-2022 19:05-0400 Systolic blood pressure 209 mm[Hg] Dr. Daija Morton Work Phone: [facility] Work Phone: 03-02-2022 17:41-0400 Body temperature 97.5 [degF] Dr. Daija Morton Work Phone: [facility] Work Phone: 03-02-2022 15:10-0400 Body height 172.[address] Daija Morton Work Phone: [facility] Work Phone: 03-02-2022 15:10-0400 Body mass index (BMI) [Ratio] 23.5 kg/m2 Dr. Daija Morton Work Phone: [facility] Work Phone: 03-02-2022 15:10-0400 Body weight 70.[address] Daija Morton Work Phone: [facility] Work Phone: 01-31-2022 13:59-0400 Body height 172.7 cm Ryan May MD Work Phone: [facility] 01-31-2022 13:59-0400 Body weight 68.49 kg Ryan May MD Work Phone: [facility] 01-31-2022 13:59-0400 Diastolic blood pressure 99 mm[Hg] Ryan May MD Work Phone: [facility] 01-31-2022 13:59-0400 Systolic blood pressure 168 mm[Hg] Ryan May MD Work Phone: [facility] 01-28-2022 15:53-0400 Diastolic blood pressure 88 mm[Hg] Dr. Daija Morton Work Phone: [facility] Work Phone: 01-28-2022 15:53-0400 Heart rate 54 /min Dr. Daija Morton Work Phone: [facility] Work Phone: 01-28-2022 15:53-0400 Respiratory rate 20 /min Dr. Daija Morton Work Phone: [facility] Work Phone: 01-28-2022 15:53-0400 SaO2% (BldA) [Mass fraction] 97 % Dr. Daija Morton Work Phone: [facility] Work Phone: 01-28-2022 15:53-0400 Systolic blood pressure 200 mm[Hg] Dr. Daija Morton Work Phone: [facility] Work Phone: 01-28-2022 14:03-0400 Body height 172.[address] Daija Morton Work Phone: [facility] Work Phone: 01-28-2022 14:03-0400 Body mass index (BMI) [Ratio] 22.9 kg/m2 Dr. Daija Morton Work Phone: [facility] Work Phone: 01-28-2022 14:03-0400 Body temperature 96.8 [degF] Dr. Daija Morton Work Phone: [facility] Work Phone: 01-28-2022 14:03-0400 Body weight 68.[address] Daija Morton Work Phone: [facility] Work Phone: 01-28-2022 11:41-0400 Diastolic blood pressure 92 mm[Hg] Anjel Older PLASMA CENTER TECHNICIAN.LEARNING SPECIALIST Work Phone: [facility] 01-28-2022 11:41-0400 Heart rate 56 /min Anjel Older PLASMA CENTER TECHNICIAN.LEARNING SPECIALIST Work Phone: [facility] 01-28-2022 11:41-0400 Systolic blood pressure 200 mm[Hg] Anjel Older PLASMA CENTER TECHNICIAN.LEARNING SPECIALIST Work Phone: [facility] 01-28-2022 10:57-0400 Body weight 68.49 kg Anjel Older PLASMA CENTER TECHNICIAN.LEARNING SPECIALIST Work Phone: [facility] 01-28-2022 10:57-0400 Respiratory rate 16 /min Anjel Older PLASMA CENTER TECHNICIAN.LEARNING SPECIALIST Work Phone: [facility] 01-20-2022 13:23-0400 Diastolic blood pressure 102 mm[Hg] Ye Coello MD Work Phone: [facility] 01-20-2022 13:23-0400 Heart rate 61 /min Ye Coello MD Work Phone: [facility] 01-20-2022 13:23-0400 SaO2% (BldA) [Mass fraction] 94 % Ye Coello MD Work Phone: [facility] 01-20-2022 13:23-0400 Systolic blood pressure 172 mm[Hg] Ye Coello MD Work Phone: [facility] 01-14-2022 10:26-0400 Body temperature 98.2 [degF] Harriett Albert PLASMA CENTER TECHNICIAN.INSURANCE COMMISSIONER Work Phone: [facility] 01-14-2022 10:26-040 Body weight 69.67 kg Harriett Albert PLASMA CENTER TECHNICIAN.INSURANCE COMMISSIONER Work Phone: [facility] 01-14-2022 10:26-0400 Diastolic blood pressure 80 mm[Hg] Harriett Albert PLASMA CENTER TECHNICIAN.INSURANCE COMMISSIONER Work Phone: [facility] 01-14-2022 10:26-0400 Heart rate 78 /min Harriett Albert PLASMA CENTER TECHNICIAN.INSURANCE COMMISSIONER Work Phone: [facility] 01-14-2022 10:26-0400 Respiratory rate 16 /min Harriett Albert PLASMA CENTER TECHNICIAN.INSURANCE COMMISSIONER Work Phone: [facility] 01-14-2022 10:26-0400 SaO2% (BldA) [Mass fraction] 95 % Harriett Albert PLASMA CENTER TECHNICIAN.INSURANCE COMMISSIONER Work Phone: [facility] 01-14-2022 10:26-0400 Systolic blood pressure 186 mm[Hg] Harriett Albert PLASMA CENTER TECHNICIAN.INSURANCE COMMISSIONER Work Phone: [facility] 11-30-2021 15:02-0400 Heart rate 75 /min Dr. Daija Morton Work Phone: [facility] Work Phone: 11-30-2021 15:02-0400 Respiratory rate 17 /min Dr. Daija Morton Work Phone: [facility] Work Phone: 11-30-2021 13:57-0400 Body temperature 97.4 [degF] Dr. Daija Morton Work Phone: [facility] Work Phone: 11-30-2021 13:57-0400 Diastolic blood pressure 67 mm[Hg] Dr. Daija Morton Work Phone: [facility] Work Phone: 11-30-2021 13:57-0400 SaO2% (BldA) [Mass fraction] 93 % Dr. Daija Morton Work Phone: [facility] Work Phone: 11-30-2021 13:57-0400 Systolic blood pressure 161 mm[Hg] Dr. Daija Morton Work Phone: [facility] Work Phone: 11-30-2021 11:25-0400 Inhaled oxygen flow rate 3 L/min Dr. Daija Morton Work Phone: [facility] Work Phone: 11-29-2021 12:48-0400 Body height 172.[address] Daija Morton Work Phone: [facility] Work Phone: 11-29-2021 12:48-0400 Body weight 71.[address] Daija Morton Work Phone: [facility] Work Phone: 11-27-2021 05:25-0400 Body mass index (BMI) [Ratio] 24 kg/m2 Dr. Daija Morton Work Phone: [facility] Work Phone: 11-25-2021 21:36-0400 Body temperature 97.8 [degF] Dr. Daija Morton Work Phone: [facility] Work Phone: 11-25-2021 21:36-0400 Diastolic blood pressure 40 mm[Hg] Dr. aDija Morton Work Phone: [facility] Work Phone: 11-25-2021 21:36-0400 Heart rate 66 /min Dr. Daija Morton Work Phone: [facility] Work Phone: 11-25-2021 21:36-0400 Respiratory rate 16 /min Dr. Daija Morton Work Phone: [facility] Work Phone: 11-25-2021 21:36-0400 SaO2% (BldA) [Mass fraction] 96 % Dr. Daija Morton Work Phone: [facility] Work Phone: 11-25-2021 21:36-0400 Systolic blood pressure 133 mm[Hg] Dr. Daija Mortno Work Phone: [facility] Work Phone: 11-25-2021 17:29-0400 Body height 172.[address] Daija Morton Work Phone: [facility] Work Phone: 11-25-2021 17:29-0400 Body mass index (BMI) [Ratio] 24.7 kg/m2 Dr. Daija Morton Work Phone: [facility] Work Phone: 11-25-2021 17:29-0400 Body weight 73.[address] Daija Morton Work Phone: [facility] Work Phone: 11-16-2021 14:37-0400 Body height 172.7 cm Estephania Pierre APRN.LEARNING SPECIALIST Work Phone: [facility] 11-16-2021 14:37-0400 Body weight 71.67 kg Estephania Pierre APRN.LEARNING SPECIALIST Work Phone: [facility] 11-16-2021 14:37-0400 Diastolic blood pressure 68 mm[Hg] Estephania Pierre APRN.LEARNING SPECIALIST Work Phone: [facility] 11-16-2021 14:37-0400 Heart rate 64 /min Estephaniajuice Pierre PLASMA CENTER TECHNICIAN.LEARNING SPECIALIST Work Phone: [facility] 11-16-2021 14:37-0400 SaO2% (BldA) [Mass fraction] 100 % Estephaniajuice Pierre PLASMA CENTER TECHNICIAN.LEARNING SPECIALIST Work Phone: [facility] 11-16-2021 14:37-0400 Systolic blood pressure 162 mm[Hg] Estephania Ignacio PLASMA CENTER TECHNICIAN.LEARNING SPECIALIST Work Phone: [facility] 11-08-2021 12:50-0400 Heart rate 73 /min Respiratory Wstr Work Phone: [facility] 11-08-2021 12:50-0400 Respiratory rate 14 /min Respiratory Wstr Work Phone: [facility] 11-08-2021 12:50-0400 SaO2% (BldA) [Mass fraction] 97 % Respiratory Wstr Work Phone: [facility] 11-05-2021 11:22-0400 Body weight 70.31 kg Emilie Shania PA-C Work Phone: [facility] 11-05-2021 11:22-0400 Diastolic blood pressure 68 mm[Hg] Emilie Shania PA-C Work Phone: [facility] 11-05-2021 11:22-0400 Heart rate 71 /min Emilie Shania PA-C Work Phone: [facility] 11-05-2021 11:22-0400 Respiratory rate 20 /min Emilie Shania PA-C Work Phone: [facility] 11-05-2021 11:22-0400 SaO2% (BldA) [Mass fraction] 99 % Emilie Shania PA-C Work Phone: [facility] 11-05-2021 11:22-0400 Systolic blood pressure 140 mm[Hg] Emilie Shania PA-C Work Phone: [facility] 10-21-2021 11:30-0400 Diastolic blood pressure 65 mm[Hg] Mi Nurse Work Phone: [facility] 10-21-2021 11:30-0400 Heart rate 81 /min Mi Nurse Work Phone: [facility] 10-21-2021 11:30-0400 Systolic blood pressure 155 mm[Hg] Mi Nurse Work Phone: [facility] 10-13-2021 13:00-0400 Body height 172.7 cm Ye Coello MD Work Phone: [facility] 10-13-2021 13:00-0400 Body weight 71.67 kg Ye Coello MD Work Phone: [facility] 10-13-2021 13:00-0400 Diastolic blood pressure 93 mm[Hg] Ye Coello MD Work Phone: [facility] 10-13-2021 13:00-0400 Heart rate 66 /min Ye Coello MD Work Phone: [facility] 10-13-2021 13:00-0400 Systolic blood pressure 217 mm[Hg] Ye Coello MD Work Phone: [facility] 10-08-2021 17:14-0400 Diastolic blood pressure 62 mm[Hg] Dr. Daija Morton Work Phone: [facility] Work Phone: 10-08-2021 17:14-0400 Heart rate 58 /min Dr. Daija Morton Work Phone: [facility] Work Phone: 10-08-2021 17:14-0400 Respiratory rate 18 /min Dr. Daija Morton Work Phone: [facility] Work Phone: 10-08-2021 17:14-0400 SaO2% (BldA) [Mass fraction] 98 % Dr. Daija Morton Work Phone: [facility] Work Phone: 10-08-2021 17:14-0400 Systolic blood pressure 149 mm[Hg] Dr. Daija Morton Work Phone: [facility] Work Phone: 10-08-2021 14:12-0400 Body height 172.[address] Daija Morton Work Phone: [facility] Work Phone: 10-08-2021 14:12-0400 Body mass index (BMI) [Ratio] 24.7 kg/m2 Dr. Daija Morton Work Phone: [facility] Work Phone: 10-08-2021 14:12-0400 Body temperature 98.1 [degF] Dr. Daija Morton Work Phone: [facility] Work Phone: 10-08-2021 14:12-0400 Body weight 73.[address] Daija Morton Work Phone: [facility] Work Phone: 10-07-2021 11:17-0400 Body temperature 97.59 [degF] Anjel Older PLASMA CENTER TECHNICIAN.LEARNING SPECIALIST Work Phone: [facility] 10-07-2021 11:17-0400 Body weight 70.31 kg Anjel Older PLASMA CENTER TECHNICIAN.LEARNING SPECIALIST Work Phone: [facility] 10-07-2021 11:17-0400 Diastolic blood pressure 90 mm[Hg] Anjel Older PLASMA CENTER TECHNICIAN.LEARNING SPECIALIST Work Phone: [facility] 10-07-2021 11:17-0400 Heart rate 67 /min Anjel Older PLASMA CENTER TECHNICIAN.LEARNING SPECIALIST Work Phone: [facility] 10-07-2021 11:17-0400 Respiratory rate 12 /min Anjel Older PLASMA CENTER TECHNICIAN.LEARNING SPECIALIST Work Phone: [facility] 10-07-2021 11:17-0400 SaO2% (BldA) [Mass fraction] 96 % Anjel Older PLASMA CENTER TECHNICIAN.LEARNING SPECIALIST Work Phone: [facility] 10-07-2021 11:17-0400 Systolic blood pressure 178 mm[Hg] Anjel Omi SOTO.LEARNING SPECIALIST Work Phone: [facility] 09-29-2021 16:20-0400 Body temperature 98.24 [degF] DR PRIYANKA FRANCO MD [facility] 09-29-2021 16:20-0400 Diastolic blood pressure 91 mm[Hg] DR PRIYANKA FRANCO MD [facility] 09-29-2021 16:20-0400 Heart rate 80 /min DR PRIYANKA FRANCO MD [facility] 09-29-2021 16:20-0400 Respiratory rate 18 /min DR PRIYANKA FRANCO MD [facility] 09-29-2021 16:20-0400 Systolic blood pressure 189 mm[Hg] DR PRIYANKA FRANCO MD [facility] 09-17-2021 20:16-0400 Body temperature 97.3 [degF] Dr. Daija Morton Work Phone: [facility] Work Phone: 09-17-2021 20:16-0400 Diastolic blood pressure 80 mm[Hg] Dr. Daija Morton Work Phone: [facility] Work Phone: 09-17-2021 20:16-0400 Heart rate 85 /min Dr. Daija Morton Work Phone: [facility] Work Phone: 09-17-2021 20:16-0400 Respiratory rate 17 /min Dr. Daija Morton Work Phone: [facility] Work Phone: 09-17-2021 20:16-0400 SaO2% (BldA) [Mass fraction] 96 % Dr. Daija Morton Work Phone: [facility] Work Phone: 09-17-2021 20:16-0400 Systolic blood pressure 171 mm[Hg] Dr. Daija Morton Work Phone: [facility] Work Phone: 09-17-2021 16:56-0400 Body height 172.[address] Daija Morton Work Phone: [facility] Work Phone: 09-17-2021 16:56-0400 Body mass index (BMI) [Ratio] 23.7 kg/m2 Dr. Daija Morton Work Phone: [facility] Work Phone: 09-17-2021 16:56-0400 Body weight 70.[address] Daija Morton Work Phone: [facility] Work Phone: 09-15-2021 17:40-0400 Diastolic blood pressure 73 mm[Hg] Anjel Older PLASMA CENTER TECHNICIAN.LEARNING SPECIALIST Work Phone: [facility] 09-15-2021 17:40-0400 Systolic blood pressure 170 mm[Hg] Anjel Older PLASMA CENTER TECHNICIAN.LEARNING SPECIALIST Work Phone: [facility] 09-15-2021 16:57-0400 Body weight 71.22 kg Anjel Older PLASMA CENTER TECHNICIAN.LEARNING SPECIALIST Work Phone: [facility] 09-15-2021 16:57-0400 Heart rate 68 /min Anjel Older PLASMA CENTER TECHNICIAN.LEARNING SPECIALIST Work Phone: [facility] 09-15-2021 16:57-0400 Respiratory rate 16 /min Anjel Older PLASMA CENTER TECHNICIAN.LEARNING SPECIALIST Work Phone: [facility] 09-15-2021 16:18-0400 Body height 172.7 cm Kaye Ortega MD Work Phone: [facility] 09-15-2021 16:18-0400 Body temperature 97.39 [degF] Kaye Ortega MD Work Phone: [facility] 09-15-2021 16:18-0400 Body weight 71.67 kg Kaye Ortega MD Work Phone: [facility] 09-15-2021 16:18-0400 Diastolic blood pressure 72 mm[Hg] Kaye Ortega MD Work Phone: [facility] 09-15-2021 16:18-0400 Heart rate 78 /min Kaye Ortega MD Work Phone: [facility] 09-15-2021 16:18-0400 SaO2% (BldA) [Mass fraction] 96 % Kaye Ortega MD Work Phone: [facility] 09-15-2021 16:18-0400 Systolic blood pressure 138 mm[Hg] Kaye Ortega MD Work Phone: [facility] 08-21-2021 09:30-0500 Body temperature 97.6 [degF] Dr. Daija Morton Work Phone: [facility] Work Phone: 08-21-2021 09:30-0500 Diastolic blood pressure 69 mm[Hg] Dr. Daija Morton Work Phone: [facility] Work Phone: 08-21-2021 09:30-0500 Heart rate 61 /min Dr. Daija Morton Work Phone: [facility] Work Phone: 08-21-2021 09:30-0500 Inhaled oxygen flow rate 3 L/min Dr. Daija Morton Work Phone: [facility] Work Phone: 08-21-2021 09:30-0500 Respiratory rate 18 /min Dr. Daija Morton Work Phone: [facility] Work Phone: 08-21-2021 09:30-0500 SaO2% (BldA) [Mass fraction] 98 % Dr. Daija Morton Work Phone: [facility] Work Phone: 08-21-2021 09:30-0500 Systolic blood pressure 183 mm[Hg] Dr. Daija Morton Work Phone: [facility] Work Phone: 08-21-2021 08:30-0500 Body temperature 97.6 [degF] Dr. Daija Morton Work Phone: [facility] Work Phone: 08-21-2021 08:30-0500 Diastolic blood pressure 69 mm[Hg] Dr. Daija Morton Work Phone: [facility] Work Phone: 08-21-2021 08:30-0500 Heart rate 61 /min Dr. Daija Morton Work Phone: [facility] Work Phone: 08-21-2021 08:30-0500 Respiratory rate 18 /min Dr. Daija Morton Work Phone: [facility] Work Phone: 08-21-2021 08:30-0500 SaO2% (BldA) [Mass fraction] 98 % Dr. Daija Morton Work Phone: [facility] Work Phone: 08-21-2021 08:30-0500 Systolic blood pressure 183 mm[Hg] Dr. Daija Morton Work Phone: [facility] Work Phone: 08-20-2021 06:18-0500 Body mass index (BMI) [Ratio] 23.7 kg/m2 Dr. Daija Morton Work Phone: [facility] Work Phone: 08-20-2021 06:18-0500 Body weight [address] Daija Morton Work Phone: [facility] Work Phone: 08-20-2021 05:18-0500 Body mass index (BMI) [Ratio] 23.7 kg/m2 Dr. Daija Morton Work Phone: [facility] Work Phone: 08-20-2021 05:18-0500 Body weight [address] Daija Morton Work Phone: [facility] Work Phone: 08-12-2021 03:26-0500 Diastolic blood pressure 89 mm[Hg] Dr. Daija Morton Work Phone: [facility] Work Phone: 08-12-2021 03:26-0500 Heart rate 70 /min Dr. Daija Morton Work Phone: [facility] Work Phone: 08-12-2021 03:26-0500 Respiratory rate 18 /min Dr. Daija Morton Work Phone: [facility] Work Phone: 08-12-2021 03:26-0500 SaO2% (BldA) [Mass fraction] 93 % Dr. Daija Morton Work Phone: [facility] Work Phone: 08-12-2021 03:26-0500 Systolic blood pressure 211 mm[Hg] Dr. Daija Morton Work Phone: [facility] Work Phone: 08-11-2021 23:32-0500 Body mass index (BMI) [Ratio] 24.8 kg/m2 Dr. Daija Morton Work Phone: [facility] Work Phone: 08-11-2021 23:32-0500 Body temperature 97.5 [degF] Dr. Daija Morton Work Phone: [facility] Work Phone: 08-11-2021 23:32-0500 Body weight 74.[address] Daija Morton Work Phone: [facility] Work Phone: 06-12-2021 15:55-0500 Diastolic blood pressure 81 mm[Hg] Dr. Daija Morton Work Phone: [facility] Work Phone: 06-12-2021 15:55-0500 Heart rate 61 /min Dr. Daija Morton Work Phone: [facility] Work Phone: 06-12-2021 15:55-0500 Systolic blood pressure 182 mm[Hg] Dr. Daija Morton Work Phone: [facility] Work Phone: 06-12-2021 15:15-0500 Body mass index (BMI) [Ratio] 24.6 kg/m2 Dr. Daija Morton Work Phone: [facility] Work Phone: 06-12-2021 15:15-0500 Body temperature 96.8 [degF] Dr. Daija Morton Work Phone: [facility] Work Phone: 06-12-2021 15:15-0500 Body weight 73.[address] Daija Morton Work Phone: [facility] Work Phone: 06-12-2021 15:15-0500 Respiratory rate 18 /min Dr. Daija Morton Work Phone: [facility] Work Phone: 06-12-2021 15:15-0500 SaO2% (BldA) [Mass fraction] 96 % Dr. Daija Morton Work Phone: [facility] Work Phone: 06-04-2021 23:37-0500 Respiratory rate 18 /min Dr. Daija Morton Work Phone: [facility] Work Phone: 06-04-2021 22:01-0500 Body mass index (BMI) [Ratio] 23.6 kg/m2 Dr. Daija Morton Work Phone: [facility] Work Phone: 06-04-2021 22:01-0500 Body temperature 97.1 [degF] Dr. Daija Morton Work Phone: [facility] Work Phone: 06-04-2021 22:01-0500 Body weight 70.[address] Daija Morton Work Phone: [facility] Work Phone: 06-04-2021 22:01-0500 Diastolic blood pressure 99 mm[Hg] Dr. Daija Morton Work Phone: [facility] Work Phone: 06-04-2021 22:01-0500 Heart rate 87 /min Dr. Daija Morton Work Phone: [facility] Work Phone: 06-04-2021 22:01-0500 SaO2% (BldA) [Mass fraction] 97 % Dr. Daija Morton Work Phone: [facility] Work Phone: 06-04-2021 22:01-0500 Systolic blood pressure 202 mm[Hg] Dr. Daija Morton Work Phone: [facility] Work Phone: Encounters Encounter Date Encounter Type Care Provider Facility Start: 12-13-2024 End: 12-13-2024 Refill Daija Morton MD Work Phone: [facility] Comment on above: Refill Request Orders [facility] requesting r ecords Start: 12-12-2024 End: 12-12-2024 Subsequent hospital visit by physician [facility] Work Phone: Radiology Comment on above: Wheezing [R06.2] Start: 12-12-2024 End: 12-12-2024 Office outpatient visit 25 minutes Anjel Omi NOVAK Work Phone: [facility] Comment on above: Other emphysema (HCC ) (Primary Dx); Smoker; Wheezing; Lower abdominal tenderness; Loose stools; On home oxygen therapy; Primary hypertension; Left leg pain; Falls; Weakness Start: 12-09-2024 End: 12-09-2024 Telephone encounter Daija Morton MD Work Phone: [facility] Comment on above: Home Care Management ; Patient Update Start: 12-06-2024 End: 12-06-2024 Telephone encounter Daija Morton MD Work Phone: [facility] Comment on above: [facility] update Start: 12-03-2024 End: 12-04-2024 Telephone encounter Daija Morton MD Work Phone: [facility] Comment on above: Home Health Orders Start: 12-02-2024 ambulatory [facility] Facility:[facility] Start: 11-05-2024 End: 11-05-[address] Daija Morton MD Work Phone: [facility] Work Phone: Start: 11-05-2024 End: 11-05-[address] Carla Prather MD -[facility] Start: 11-05-2024 End: 11-05-2024 ambulatory [facility] Facility:[facility] Start: 10-16-2024 ambulatory [facility] Facility:[facility] Start: 10-16-[address] Carla Prather MD -[facility] Start: 09-02-2024 Non-patient / Non-visit Dr. Brody Maynard MD -[facility] Work Phone: Start: 09-01-2024 Non-patient / Non-visit Dr. Celia rapp MD -[facility] Work Phone: Start: 08-31-2024 Non-patient / Non-visit Dr. Celia rapp MD -[facility] Work Phone: Start: 08-30-2024 Non-patient / Non-visit Dr. Celia rapp MD -[facility] Work Phone: Start: 08-29-2024 Non-patient / Non-visit Dr. Celia rapp MD -[facility] Work Phone: Start: 08-28-2024 Non-patient / Non-visit Dr. Celia rapp MD -[facility] Work Phone: Start: 08-27-2024 ambulatory Celia Toribio Facility:[facility] Start: 08-27-2024 End: 09-02-2024 Evaluation and management of inpatient Dr. Brody Maynard MD -[facility] Work Phone: Start: 08-27-2024 Non-patient / Non-visit Dr. Celia rapp MD -[facility] Work Phone: Start: 08-26-2024 Non-patient / Non-visit Dr. Celia rapp MD -[facility] Work Phone: Start: 08-25-2024 Non-patient / Non-visit Dr. Lisha Talamantes DO [facility] Work Phone: Start: 08-25-2024 ambulatory Lisha Talamantes Facility:[facility] Start: 08-25-2024 Evaluation and management of inpatient Dr. Lisha Talamantes DO -[facility] Work Phone: Start: 08-25-[address] Germain Morton MD Work Phone: [facility] Work Phone: Start: 07-15-2024 ambulatory Carla Constantino ty:[facility] Start: 07-15-[address] Carla Prather MD -[facility] Start: 05-17-2024 End: 05-17-2024 Telephone encounter Daija Morton MD Work Phone: [facility] Comment on above: Patient Update Start: 04-29-2024 End: 05-14-2024 Telephone encounter Daija Morton MD Work Phone: [facility] Comment on above: Patient Update Start: 04-12-2024 ambulatory Carla Constantino ty:[facility] Start: 04-08-2024 ambulatory Maxi Curtis Facility:[facility] Start: 04-07-2024 ambulatory [facility] Facility: [facility] Start: 04-07-2024 End: 04-10-2024 Evaluation and management of inpatient [facility] Facility:[facility] Start: 04-06-2024 ambulatory [facility] Facility: [facility] Start: 04-04-2024 End: 04-24-2024 Telephone encounter Daija Morton MD Work Phone: [facility] Comment on above: Patient Update Start: 03-31-2024 End: 04-04-2024 Telephone encounter Sera SALDIVAR Work Phone: [facility] Comment on above: Results Start: 03-25-2024 End: 03-25-2024 Telephone encounter Sera SALDIVAR Work Phone: [facility] Comment on above: Results Start: 03-23-2024 End: 03-23-2024 ambulatory DAIJA MORTON Facility:[facility] Start: 03-23-2024 End: 03-23-2024 Patient encounter procedure Pura Carter APRN.CNP Work Phone: [facility] Comment on above: Uncontrolled hyperte nsion (Primary Dx); Dysuria; Urinary tract infection without hematuria, site unspecified Start: 03-12-2024 End: 03-12-2024 Refill Daija Morton MD Work Phone: [facility] Comment on above: Refill Request Start: 02-20-2024 End: 02-20-2024 Emergency department patient visit Olayinka Cordova Facility:[facility] Start: 01-23-2024 Refill Daija Damon Work Phone: [facility] Comment on above: Refill Request Start: 01-03-2024 End: 01-03-2024 Emergency department patient visit Jb Adler Facility:[facility] Start: 01-02-2024 Orders Only Ryan May MD Work Phone: V[facility] Surgery Comment on above: Peripheral arterial disease (HCC) (Primary Dx) Start: 01-01-2024 Telephone encounter Daija pressley MD Work Phone: [facility] Comment on above: No Show Start: 12-22-2023 Telephone encounter Daija pressley MD Work Phone: [facility] Comment on above: Mental status change Start: 12-08-2023 Telephone encounter Daija pressley MD Work Phone: [facility] Comment on above: Patient Update Start: 12-08-2023 End: 12-08-2023 Emergency department patient visit [facility] Facility:[facility] Start: 11-21-2023 End: 11-21-2023 Office outpatient visit 25 minutes Rebekah Luu PA-C Work Phone: [facility] Comment on above: 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); Other emphysema (HCC); Chronic sore throat; Smoking; Closed nondisplaced fracture of pelvis with routine healing, unspecified part of pelvis, subsequent encounter; Mixed hyperlipidemia; Hypertension, unspecified type Start: 11-20-2023 Telephone encounter Daija pressley MD Work Phone: [facility] Comment on above: Future Appointment Start: 11-17-2023 [...] Daija pressley MD Work Phone: [facility] Comment on above: FYI-No Action Needed Start: 08-21-2023 ambulatory Lisakaren Farley [facility] Comment on above: Population Health Na vigation Outreach ([employer] care gaps) Start: 08-04-2023 Refill Daija Damon Work Phone: [facility] Comment on above: Refill Request Start: 08-02-2023 Dr. Daija pressley Work Phone: [facility] Work Phone: Start: 08-01-2023 Dr. Daija pressley Work Phone: [facility] Work Phone: Start: 07-31-2023 Dr. Daija pressley Work Phone: [facility] Work Phone: Start: 07-30-2023 End: 08-02-2023 Evaluation and management of inpatient Dr. Daija Morton Work Phone: [facility] Work Phone: Start: 07-30-2023 End: 08-02-2023 Dr. Daija Morton Work Phone: [facility]-Int[facility] Unit Work Phone: Start: 07-27-2023 Dr. Daija pressley Work Phone: [facility] Start: 07-26-2023 Dr. Daija pressley Work Phone: [facility] Work Phone: Start: 07-25-2023 Dr. Daija pressley Work Phone: [facility] Work Phone: Start: 07-24-2023 Evaluation and management of inpatient Dr. Daija Morton Work Phone: [facility] 3 Work Phone: Start: 07-24-2023 Non-patient / Non-visit Dr. Vernon Morton Work Phone: [facility] Work Phone: Start: 07-24-2023 End: 07-26-2023 Dr. Daija Morton Work Phone: [facility] Work Phone: Start: 07-19-2023 Telephone encounter Daija pressley MD Work Phone: [facility] Comment on above: Patient Update Start: 07-10-2023 End: 07-15-[address] DAIJA MORTON MD Facility:[facility] Start: 06-14-2023 End: 06-14-[address] Daija Morton Work Phone: [facility] Work Phone: Start: 06-14-2023 End: 06-14-[address] Daija Morton Work Phone: [facility]-Laboratory, Specimen Work Phone: Start: 06-14-2023 End: 06-14-2023 Dr[facility] Start: 05-30-2023 Refill Daija Damon Work Phone: [facility] Comment on above: Refill Request Start: 05-19-2023 Telephone encounter Daija pressley MD Work Phone: [facility] Comment on above: Need verbal for Adva royce [facility] Start: 05-19-2023 End: 05-19-[address] Daija Morton Work Phone: [facility] Work Phone: Start: 05-19-2023 End: 05-19-[address] Daija Morton Work Phone: [facility] Start: 05-19-2023 End: 05-19-2023 Dr. Daija Morton Work Phone: [phone] [place] [address] Start: 04-19-[address] Daija Morton Work Phone: [phone] [place] [address] Start: 04-19-2023 Dr. Daija pressley Work Phone: [phone] [place] [address] Start: 04-17-[address] Daija Morton Work Phone: [phone] [place] [address] Start: 04-17-2023 Dr. Daija pressley Work Phone: [phone] [place] [address] Start: 04-12-[address] Daija Morton Work Phone: [phone] [place] [address] Start: 04-12-2023 Dr. Daija pressley Work Phone: [phone] [place] [address] Start: 04-05-[address] Daija Morton Work Phone: [phone] [place] [address] Start: 04-05-2023 Dr. Daija pressley Work Phone: [phone] [place] [address] Start: 04-04-2023 Non-patient / Non-visit Dr. Vernon Morton Work Phone: [facility] Work Phone: Start: 04-04-2023 Dr. Daija pressley Work Phone: [facility] Work Phone: Start: 04-03-2023 Non-patient / Non-visit Dr. Vernon Morton Work Phone: [facility] Work Phone: Start: 04-03-2023 Dr. Daija pressley Work Phone: [facility] Work Phone: Start: 04-02-2023 Non-patient / Non-visit Dr. Vernon Morton Work Phone: [facility] Work Phone: Start: 04-02-2023 Dr. Daija pressley Work Phone: [facility] Work Phone: Start: 04-01-2023 Non-patient / Non-visit Dr. Vernon Morton Work Phone: [facility] Work Phone: Start: 03-31-2023 Telephone encounter Daija pressley MD Work Phone: [address] [place] [address] Comment on above: Erroneous encounter- disregard Start: 03-31-2023 Non-patient / Non-visit Dr. Vernon Morton Work Phone: [facility] Work Phone: Start: 03-30-2023 Non-patient / Non-visit Dr. Vernon Morton Work Phone: [facility] Work Phone: Start: 03-30-2023 End: 04-04-2023 Evaluation and management of inpatient Dr. Daija Morton Work Phone: [facility] Work Phone: Start: 03-30-2023 End: 04-04-2023 Dr. Daija Morton Work Phone: [facility] Work Phone: Start: 03-29-2023 End: 03-29-2023 Emergency department patient visit Dr. Daija Morton Work Phone: [facility]Emergency Department Work Phone: Start: 02-25-2023 End: 02-25-2023 Emergency department patient [facility] Start: 02-24-2023 Refill Anjel Braga APRN .LEARNING SPECIALIST Work Phone: [facility] Comment on above: Refill Request Start: 02-17-2023 End: 02-18-2023 [facility] Start: 01-27-2023 Refill Daija Damon Work Phone: [facility] Comment on above: Refill Request Start: 12-31-2022 End: 12-31-2022 [facility] Start: 12-26-2022 End: 12-26-2022 Patient encounter procedure Ryan May MD Work Phone: [facility] Comment on above: Peripheral arterial disease (HCC) (Primary Dx) Peripheral arterial disease (HCC) (Primary Dx); PVD (peripheral vascular disease) (HCC) Start: 10-22-2022 End: 10-23-2022 Emergency department patient visit DR DAIJA MORTON MD Facility:[facility] Start: 10-22-2022 End: 10-22-2022 Emergency department patient visit DR PRIYANKA FRANCO MD [facility] Start: 10-21-2022 End: 10-21-2022 [facility] Start: 09-30-2022 Refill Daija Damon Work Phone: [facility] Comment on above: Refill Request Start: 09-06-2022 Telephone encounter Anjel Braga APRN.LEARNING SPECIALIST Work Phone: [facility] Comment on above: patient problem Start: 09-01-2022 Refill Daija Damon Work Phone: [facility] Comment on above: Refill Request; HHC Request Start: 08-29-2022 Refill Daija Damon Work Phone: [facility] Comment on above: Refill Request Start: 08-27-2022 End: 08-27-2022 Patient encounter procedure Daija Morton MD Work Phone: [facility] Comment on above: Ambulatory dysfuncti on (Primary Dx); Closed fracture of multiple ribs of left side, sequela; Paroxysmal atrial fibrillation (HCC); Anemia, unspecified type; Essential hypertension; PVD (peripheral vascular disease) (HCC); Anticoagulation goal of INR 2 to 3; Uncontrolled hypertension; Declining mobility Start: 08-25-2022 Telephone encounter Daija pressley MD Work Phone: [facility] Comment on above: Appointment Refill Request; [place] ent Update Start: 08-11-2022 End: 08-11-2022 Departed Referred [facility] Start: 08-02-2022 Telephone encounter Ryan May MD Work Phone: Vascular Surgery Comment on above: Appointment Start: 07-12-2022 End: 07-12-2022 ambulatory [facility] Work Phone: Start: 07-12-2022 End: 07-12-2022 Departed Referred [facility] Start: 06-14-2022 End: 06-14-2022 Departed Referred [facility] Start: 06-14-2022 Registered Referred [facility] Start: 05-13-2022 End: 05-13-2022 ambulatory [facility] Work Phone: Start: 05-13-2022 End: 05-13-2022 Departed Referred [facility] Start: 03-29-2022 ambulatory Daija Damon Work Phone: [facility] [place] Start: 03-15-2022 Registered Referred [facility] 100/200 Start: 03-14-2022 Telephone encounter Daija pressley MD Work Phone: [facility] Comment on above: Medication Question Start: 03-11-2022 Telephone encounter Anjel Braga APRN.LEARNING SPECIALIST Work Phone: [facility] Comment on above: admit to [facility] Start: 03-10-2022 Telephone encounter Daija pressley MD Work Phone: [facility] Comment on above: Appointment Start: 03-10-2022 End: 03-10-2022 Patient encounter procedure Anjel Braga APRN.LEARNING SPECIALIST Work Phone: [facility] Comment on above: Fall, sequela (Prima ry Dx); Closed fracture of multiple ribs of left side, sequela; Pain Start: 03-09-2022 Telephone encounter Daija pressley MD Work Phone: [facility] Comment on above: [facility] orders needed t [facility] Start: 03-08-2022 End: 03-08-2022 Emergency department patient [facility] Start: 03-07-2022 End: 03-07-2022 Emergency department patient [facility] Da[facility] Start: 03-02-2022 End: 03-02-2022 Emergency department patient [facility] Da[facility] Start: 03-02-2022 ambulatory Daija Damon Work Phone: [facility] Comment on above: Syncope Start: 03-02-2022 Telephone encounter Daija pressley MD Work Phone: [facility] Comment on above: Erroneous encounter- disregard Start: 02-23-2022 Telephone encounter Daija pressley MD Work Phone: [facility] Comment on above: Orders Start: 02-22-2022 Refill Daija Damon Work Phone: [facility] Comment on above: Refill Request Start: 02-01-2022 Telephone encounter Daija pressley MD Work Phone: [facility] Comment on above: Patient Question Start: 01-31-2022 End: 01-31-2022 Patient encounter procedure Ryan May MD Work Phone: [facility] Comment on above: s/p left femoral end arterectomy/aortoiliac stenting 10/08/2019 (Primary Dx); PVD (peripheral vascular disease) (HCC); Smoker PVD (peripheral vasc ular disease) (HCC) (Primary Dx) Start: 01-28-2022 End: 01-28-2022 Emergency department patient visit Dr. Daija Morton Work Phone: [facility]-Emergency Department Start: 01-28-2022 End: 01-28-2022 Patient encounter procedure Anjel Braga APRN.LEARNING SPECIALIST Work Phone: [facility] Comment on above: Essential hypertensi on (Primary Dx); Chest pain, unspecified type; Acute nonintractable headache, unspecified headache type; GI bleeding; Anticoagulation goal of INR 2 to 3 Start: 01-20-2022 End: 01-20-2022 Patient encounter procedure Ye Coello MD Work Phone: [facility] General Surgery Comment on above: Tobacco abuse (Prima ry Dx); Acute cholecystitis with chronic cholecystitis; Gallbladder perforation; RUQ abdominal pain; Abnormal ultrasound of gallbladder Start: 01-14-2022 Telephone encounter Harriett armendariz APRN.INSURANCE COMMISSIONER Work Phone: [facility] Comment on above: Results, Lab Start: 01-14-2022 End: 01-14-2022 Patient encounter procedure Harriett Albert APRN.INSURANCE COMMISSIONER Work Phone: [facility] Comment on above: Acute blood loss ane won (Primary Dx); Angiodysplasia of colon with hemorrhage; COPD with chronic bronchitis (HCC) Start: 01-11-2022 Telephone encounter Harriett armendariz PLASMA CENTER TECHNICIAN.INSURANCE COMMISSIONER Work Phone: [facility] Comment on above: Appointment (7/29 ED F/U-need ED location to retrieve records) Start: 12-30-2021 End: 12-30-[address] Daija Morton Work Phone: [place] [phone] Start: 12-30-[address] Daija Morton Work Phone: [place] [phone] Start: 12-29-2021 End: 12-29-[address] Daija Morton Work Phone: [phone] [place] [address] Start: 12-29-[address] Daija Morton Work Phone: [phone] [place] [address] Start: 12-23-2021 End: 12-23-[address] Daija Morton Work Phone: [phone] [place] [address] Start: 12-17-2021 End: 12-17-[address] Daija Morton Work Phone: [phone] [place] [address] Start: 12-17-[address] Daija Morton Work Phone: [phone] [place] [address] Start: 12-10-2021 End: 12-10-[address] Daija Morton Work Phone: [facility] 100/200 Start: 12-10-[address] Daija Morton Work Phone: [facility] [address] Start: 12-08-2021 End: 12-08-[address] Daija Morton Work Phone: [facility] 100[facility] Start: 12-08-[address] Daija Morton Work Phone: [facility] 100/200 Start: 12-06-2021 End: 12-06-[address] Daija Morton Work Phone: [place] [phone] Start: 12-06-[address] Daija Morton Work Phone: [place] [phone] Start: 12-04-2021 End: 12-04-[address] Daija Morton Work Phone: [facility] 100/200 Start: 12-04-[address] Daija Morton Work Phone: [place] [phone] Start: 12-02-2021 Telephone encounter Daija pressley MD Work Phone: [facility] Comment on above: Patient Update; Medi cation Request Start: 12-01-2021 End: 12-01-[address] Daija Morton Work Phone: [place] [phone] Start: 11-30-2021 Telephone encounter Daija pressley MD Work Phone: Internal [facility] Comment on above: Clinical Update Start: 11-30-2021 Non-patient / Non-visit Dr. Vernon Morton Work Phone: [facility] Phys[facility] Start: 11-29-2021 Non-patient / Non-visit Dr. Vernon Morton Work Phone: [facility] Start: 11-28-2021 Non-patient / Non-visit Dr. Vernon Morton Work Phone: [facility] Start: 11-27-2021 Non-patient / Non-visit Dr. Vernon Morton Work Phone: [facility] Start: 11-27-2021 Non-patient / Non-visit Dr. Vernon Morton Work Phone: [facility] Start: 11-26-2021 Telephone encounter Kaylen Danielle [facility] Tele[facility] Comment on above: Anticoagulation Tele phone Fu Start: 11-26-2021 Non-patient / Non-visit Dr. Vernon Morton Work Phone: [facility] Start: 11-26-2021 Non-patient / Non-visit Dr. Vernon Morton Work Phone: [facility] Start: 11-25-2021 Non-patient / Non-visit Dr. Vernon Morton Work Phone: [facility] Start: 11-25-2021 End: 11-30-2021 Evaluation and management of inpatient Dr. Daija Morton Work Phone: [facility] Start: 11-19-2021 Refill Daija Damon Work Phone: [facility] Comment on above: Refill Request Medication Request Start: 11-18-2021 Refill Anjel Braga APRN, .CNP Work Phone: [facility] Comment on above: Refill Request Anticoagulation Tele phone Fu Start: 11-17-2021 End: 11-17-2021 Telemedicine consultation with patient Anjel Braga APRN.LEARNING SPECIALIST Work Phone: [facility] Start: 11-17-2021 End: 11-17-2021 ambulatory Tila Guerrero RN [facility] Comment on above: Urinary tract infect ion without hematuria, site unspecified (Primary Dx) Start: 11-17-2021 Patient encounter procedure Tila Guerrero RN NURSE LIBRARIAN SPECIALIST Comment on above: Appointment Start: 11-16-2021 End: 11-16-2021 Patient encounter procedure Estephania Pierre APRN.LEARNING SPECIALIST Work Phone: Cardiology Comment on above: Preoperative cardiov ascular examination (Primary Dx); Paroxysmal atrial fibrillation (HCC); Coronary artery disease involving ho-chunk coronary artery of ho-chunk heart without angina pectoris; Primary hypertension; Mixed hyperlipidemia; PVD (peripheral vascular disease) (HCC); Smoker Start: 11-16-2021 End: 11-16-2021 Patient encounter status Estephania Pierre APRN.LEARNING SPECIALIST Work Phone: Cardiology Start: 11-12-2021 Telephone encounter Anjelluís Braga APRN.CNP Work Phone: [facility] Comment on above: Results Start: 11-11-2021 Telephone encounter Daija pressley MD Work Phone: [facility] Comment on above: Anticoagulation Start: 11-11-2021 End: 11-11-[address] Daija Morton Work Phone: [facility], Specimen Start: 11-08-2021 End: 11-08-2021 ambulatory Respiratory Therapist [facility] Work Phone: Pulmonary Medicine Comment on above: Spirometry Start: 11-08-2021 End: 11-08-2021 Patient encounter procedure Respiratory Therapist [facility] Work Phone: [facility] Start: 11-05-2021 End: 11-05-2021 Patient encounter procedure Emilie Jauregui PA-C Work Phone: Pulmonary Medicine Comment on above: 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 [facility] and states pt will be discharging from [facility]. Asking if provider will sign and follow patient for assisted and Physical Therapy orders? Call [phone] with reply. Marguerite Roper RN documented in this encounter [facility] 12-03-2024 Telephone encount er Note yes [facility] 12-03-2024 Telephone encount er Note Alie calling from [facility] and states pt will be discharging from [facility]. Asking if provider will sign and follow patient for assisted and Physical Therapy orders? Call [phone] with reply. Marguerite Roper RN [facility] 09-02-2024 Consult note [facility] 09-02-2024 Discharge summary Note Date/Time September 02, 2024 3:09pm [facility] Medical Records Department [address] [place] [address] Discharge Summary 09/02/24 1459 MR#: [id number] Acct: [id number] Name: PEDRO PABLO SIERRA Rep #:[id number] : 1950 74 From: Brody Damon PCP: Dr. Daija Morton MD Status:ADM I N Location: [place] [address] Providers Date of Admission: 08/27/24 Date of [...] diarrhea, generalized weakness after recent discharge from [facility]. Patient was found to have UTI, ESBL E. coli. He also has mild COPD exacerbation. # Generalized weakness/debility/failure to thrive -Patient recently had been at [facility] and was discharged 08/20/2024 buthas been having [...] and DC plan in place -08/30: Awaiting [facility] and APS determinations about payee so that patient can be placed at [facility], further dispo pending this -08/31: Patient accepted [...] in before D/C Order can be placed): Halfway Facility Charges/Coding Visit Charges Inpatient E&M: 94114 Disch Hosp >30min 09/02/24 1509 <Electronically signed by Brody Maynard MD> Cosigner Signature (if applicable): CC: Dr. Daija Morton MD; Dr. Brody Maynard MD~ Signed [facility] Work Phone: 1(195) 374-298403-17-2025 Consult note Author Shanell Hyatt [facility] Note Date/Time September 02, 2024 9:3 5pm [facility] Medical Records Department [address] [place] [address] Counseling Note - Pharmacy 09/02/24 1507 MR#: [id number] Acct: [id number] Name: PEDRO PABLO SIERRA Rep #:[id number] : 1950 74 From: Shanell Hyatt PCP: Dr. Daija Morton MD Status:ADM I N Y Location: [place] [address] Pharmacy [place] Med Reconciliation Pharmacy Service has performed discharge [...] Signature (if applicable): Date CC: ~ Signed [facility] Work Phone: 1(460) 890-751003-17-2025 Discharge summary Author Brody Maynard [facility] Note Date/Time September 02, 2024 2:5 8pm [facility] Medical Records Department [address] [place] [address] Transfer to [facility] MR#: [id number] Acct: [id number] Name: PEDRO PABLO SIERRA Rep #:[id number] : 1950 74 From: Brody Damon PCP: Dr. Daija Morton MD Status:ADM I N Certification of patient admission REQUIRED AT TIME OF ADMISSION. I CERTIFY THAT [facility] SERVICES ARE REQUIRED TO BE GIVEN ON AN IN-PATIENT BASIS BECAUSE OF THE ABOVE NAMED PATIENT'S NEED FOR LONG TERM CARE ON A CONTINUING BASIS FOR THE CONDITION(S) FOR WHICH HE/SHE WAS RECEIVING IN-PATIENT HOSPITAL SERVICES PRIOR TO HIS/HER TRANSFER TO THE [facility]. 09/02/24 8538<Electronically signed by Brody Maynard MD> Diet Diet Order/Speech Therapy: 08/25/24 19:21 Diet: Cardiac - Heart Healthy Food consistency:: Regular Liquid Consistency:: Regular/Thin DC O2, CPAP, BIPAP needs Home O2 Discharge instructions: No Problem/Diagnosis (1) Weakness: Status: Acute Code(s): R53.1 - Weakness (2) Acute diarrhea: Status: Acute Code(s): R19.7 - Diarrhea, unspecified Plan # Generalized weakness/debility/failure to thrive -Patient recently had been at [facility] and was discharged 08/20/2024 buthas been having diarrhea since that time -May be due to diarrhea but cannot say definitively, checking UA -PT/OT -08/27: UA ordered, yet to be collected, will follow-up, continue to work with physical therapy, case management social work following -08/28: Patient now agreeable to placement, placement avenues been pursued -08/29: Patient pending acceptance and pre-CERT for [facility], patient stable and willbe cleared for discharge once antibiotic and DC plan in place -08/30: Awaiting [facility] and APS determinations about payee so that patient can be placed at [facility], further dispo pending this -08/31: Patient accepted [...] in before D/C Order can be placed): Halfway Facility 09/02/24 5452 <Electronically signed by Brody Maynard MD> Cosigner Signature (if applicable): CC: Dr. Daija Morton MD; Dr. Lisha Talamantes DO; Dr. Celia Toribio MD; Dr. Ashley MD ~ [facility] Work Phone: 1(457) 680-824403-17-2025 Progress note Author [facility] Note Date/Time September 02, 2024 2:2 8pm [facility] Medical Records Department [address] [place] [id number] Progress Note - Infect Disease 09/02/24 1425 MR#: [id number] Acct: [id number] Name: PEDRO PABLO SIERRA Shannan Rep #:[id number] : 1950 74 From: Elton pierce MD PCP: Dr. Daija Morton MD Status:ADM I N Location: NE3 HS512-3 Physical Exam Narrative C/o some dysuria. No [...] Cosigner Signature (if applicable): CC: ~ Signed [facility] Work Phone: 1(702) 637-212003-17-2025 Discharge summary [facility] Medical Records Department [address] [place] [address] Discharge Summary 09/02/24 9249 MR#: [id number] Acct: [id number] Name: PEDRO PABLO SIERRA Rep #:[id number] : 1950 74 From: Brody Damon PCP: Dr. Daija Morton MD Status:ADM I N Location: [place] [address] Providers Date of Admission: 08/27/24 Date of [...] diarrhea, generalized weakness after recent discharge from [facility]. Patient was found to have UTI, ESBL E. coli. He also has mild COPD exacerbation. # Generalized weakness/debility/failure to thrive -Patient recently had been at [facility] and was discharged 08/20/2024 buthas been having [...] and DC plan in place -08/30: Awaiting [facility] and APS determinations about payee so that patient can be placedat [facility], further dispo pending this -08/31: Patient accepted [...] in before D/C Order can be placed): [facility]way Facility Charges/Coding Visit Charges Inpatient E&M: 87087 Disch Hosp >30min 09/02/24 1509 Cosigner Signature (if applicable): CC: Dr. Daija Morton MD; Dr. Brody Maynard MD~ Signed [facility]03-17-20[facility] Discharge summary [facility] Medical Records Department [address] [place] [address] Transfer to [facility] MR#: [id number] Acct: [id number] Name: PEDRO PABLO SIERRA Rep #:[id number] : 1950 74 From: Brody Damon PCP: Dr. Daija Morton MD Status:ADM I N Certification of patient admission REQUIRED AT TIME OF ADMISSION. I CERTIFY THAT POST-HOSPITAL ECF SERVICES ARE REQUIRED TO BE GIVEN ON AN IN-PATIENT BASIS BECAUSE OF THE ABOVE NAMED PATIENT'S NEED FOR LONG TERM CARE ON A CONTINUING BASIS FOR THE CONDITION(S) FOR WHICH HE/SHE WAS RECEIVING IN-PATIENT HOSPITAL SERVICES PRIOR TO HIS/HER TRANSFER TO THE [facility]. 09/02/24 1458 Diet Diet Order/Speech Therapy: 08/25/24 19:21 Diet: Cardiac - Heart Healthy Food consistency:: Regular Liquid Consistency:: Regular/Thin DC O2, CPAP, BIPAP needs Home O2 Discharge instructions: No Problem/Diagnosis (1) Weakness: Status: Acute Code(s): R53.1 - Weakness (2) Acute diarrhea: Status: Acute Code(s): R19.7 - Diarrhea, unspecified Plan # Generalized weakness/debility/failure to thrive -Patient recently had been at [facility] and was discharged 08/20/2024 buthas been having diarrhea since that time -May be due to diarrhea but cannot say definitively, checking UA -PT/OT -08/27: UA ordered, yet to be collected, will follow-up, continue to work with physical therapy, case management social work following -08/28: Patient now agreeable to placement, placement avenues been pursued -08/29: Patient pending acceptance and pre-CERT for [facility], patient stable and willbe cleared for discharge once antibiotic and DC plan in place -08/30: Awaiting [facility] and APS determinations about payee so that patient can be placedat [facility], further dispo pending this -08/31: Patient accepted [...] in before D/C Order can be placed): [facility]way Facility 09/02/24 0665 Cosigner Signature (if applicable): CC: Dr. Daija Morton MD; Dr. Lisha Talamantes DO; Dr. Celia Toribio MD; Dr. Ashley MD ~ [facility]03-17-2025 Progress note [facility] Medical Records Department [address] [place] [address] Progress Note - Infect Disease 09/02/24 1425 MR#: [id number] Acct: [id number] Name: PEDRO PABLO SIERRA Shannan Rep #:[id number] : 1950 74 From: Elton pierce MD PCP: Dr. Daija Morton MD Status:ADM I N Location: [place]3 AV701-0 Physical Exam Narrative C/o some dysuria. No [...] Cosigner Signature (if applicable): CC: ~ Signed [facility]03-16-2025 Progress note Author Celia Toribio [facility] Note Date/Time September 01, 2024 11: 27am [facility] Medical Records Department [address] [place] [address] Progress Note - Hospitalist 09/01/24 0758 MR#: [id number] Acct: [id number] Name: PEDRO PABLO SIERRA Shannan Rep #:[id number] : 1950 74 From: Celia Toribio MD PCP: Dr. Daija Morton MD Status:ADM I N Location: [place] [address] Reason for Visit Reason for Visit: Diagnoses [...] (Auto) 70.9 H, Lymph % (Auto) 20.9, Will % (Auto) 6.2, Eos % (Auto) 0.4, [...] to thrive -Patient recently had been at [facility] and was discharged 08/20/2024 buthas been having [...] and DC plan in place -08/30: Awaiting [facility] and APS determinations about payee so that patient can be placed at [facility], further dispo pending this -08/31: Patient accepted [...] Toribio MD Charges/Coding Visit Charges Inpatient E&M: 57077 Subs Hosp L1 09/01/24 1127 <Electronically signed by Celia Toribio MD> Cosigner Signature (if applicable): CC: ~ Signed [facility] Work Phone: [phone]) 610-846803-16-2025 Progress note [facility] Medical Records Department [address] [place] [address] Progress Note - Hospitalist 09/01/24 0758 MR#: [id number] Acct: [id number] Name: PEDRO PABLO SIERRA Rep #:[id number] : 1950 74 From: Celia Toribio MD PCP: Dr. Daija Morton MD Status:ADM I N Location: [address] Reason for Visit Reason for Visit: [...] %(Auto) 70.9 H, Lymph % (Auto) 20.9, Will % (Auto) 6.2, Eos % (Auto) 0.4, [...] to thrive -Patient recently had been at [facility] and was discharged 08/20/2024 buthas been having [...] and DC plan in place -08/30: Awaiting [facility] and APS determinations about payee so that patient can be placedat [facility], further dispo pending this -08/31: Patient accepted [...] Toribio MD Charges/Coding Visit Charges Inpatient E&M: 10729 Subs Hosp L1 09/01/24 1127 Cosigner Signature (if applicable): CC: ~ Signed [facility]03-15-2025 Progress note Author Celia Toribio [facility] Note Date/Time August 31, 2024 12: 30pm [facility] Medical Records Department [address] [place] [address] Progress Note - Hospitalist 08/31/24 0748 MR#: [id number] Acct: [id number] Name: PEDRO PABLO SIERRA Rep #:[id number] : 1950 74 From: Celia Toribio MD PCP: Dr. Daija Morton MD Status:ADM I N Location: [place]3 NC647-7 Reason for Visit Reason for Visit: Diagnoses [...] to thrive -Patient recently had been at [facility] and was discharged 08/20/2024 buthas been having [...] and DC plan in place -08/30: Awaiting [facility] and [facility] determinations about payee so that patient can be placed at [facility], further dispo pending this -08/31: Patient accepted [...] documentation, 36minutes Charges/Coding Visit Charges Inpatient E&M: 20263 Subs Hosp L2 08/31/24 1230 <Electronically signed by Celia Toribio MD> Cosigner Signature (if applicable): CC: ~ Signed [facility] Work Phone: [phone]) 616-775403-15-2025 Progress note [facility] Medical Records Department [address] [place] [address] Progress Note - Hospitalist 08/31/24 0748 MR#: [id number] Acct: [id number] Name: PEDRO PABLO SIERRA Rep #:[id number] : 1950 74 From: Celia Toribio MD PCP: Dr. Daija Morton MD Status:ADM I N [facility] Reason for Visit Reason for Visit: Diagnoses [...] to thrive -Patient recently had been at [facility] and was discharged 08/20/2024 buthas been having diarrhea since that time -May be due to diarrhea but cannot say definitively, checking UA -PT/OT -08/27: UA ordered, yet to be collected, will follow-up, continue to work with physical therapy, case management social work following -08/28: Patient now agreeable to placement, placement avenues been pursued -08/29: Patient pending acceptance and pre-CERT for [facility], patient stable and willbe cleared for discharge once antibiotic and DC plan in place -08/30: Awaiting [facility] and [facility] determinations about payee so that patient can be placedat [facility], further dispo pending this -08/31: Patient accepted [...] documentation, 36minutes Charges/Coding Visit Charges Inpatient E&M: 93431 Subs Hosp L2 08/31/24 1230 Cosigner Signature (if applicable): CC: ~ Signed [facility]03-14-2025 Consult note Author Elton Moore [facility] Note Date/Time August 30, 2024 1:4 6pm [facility] Medical Records Department [address] [place] [address] Consultation - Infectious Dx 08/30/24 1343 MR#: [id number] Acct: [id number] Name: PEDRO PABLO SIERRA Rep #:[id number] : 1950 74 From: Elton pierce MD PCP: Dr. Daija Morton MD Status:ADM I N Location: [place] [address]-1 Assessment & Plan Assessment/Plan (1) Weakness: (2) [...] Reason for Consultation: esbl infection HPI Narrative: PEDR OPABLO SIERRA, is a 74 M with h/o compression fracture of L-spine, htn, afib, presented 08/25 with several days weakness, unable to care for himself at home. Had been having some diarrhea, not feeling well. Some dry cough. No dysuria orurine changes. Now on zosyn for (+) ucx. Feeling ok today. Full ROS performed and neg except as noted above. [facility] Medical History Compression fx, lumbar spine [...] (Auto) 64.8, Lymph % (Auto) 17.8 L, Will % (Auto) 7.6, Eos % (Auto) 7.8 [...] applicable): CC: Dr. Daija Morton MD~ Signed [facility] Work Phone: 1(931) 487-464103-14-2025 Consult note [facility] Medical Records Department [address] [place] [address] Consultation - Infectious Dx 08/30/24 1343 MR#: [id number] Acct: [id number] Name: PEDRO PABLO SIERRA Shannan Rep #:[id number] : 1950 74 From: Elton pierce MD PCP: Dr. Daija Morton MD Status:ADM I N Location: [place]3 TD906-1 Assessment & Plan Assessment/Plan (1) Weakness: (2) [...] performed and neg except as noted above. [facility] Medical History Compression fx, lumbar spine [...] %(Auto) 64.8, Lymph % (Auto) 17.8 L, Will % (Auto) 7.6, Eos % (Auto) 7.8 [...] applicable): CC: Dr. Daija Morton MD~ Signed [facility]03-14-2025 Progress note Author Celia Toribio [facility] Note Date/Time August 30, 2024 11: 11am [facility] Medical Records Department [address] [place] [address] Progress Note - Hospitalist 08/30/24 0709 MR#: [id number] Acct: [id number] Name: PEDRO PABLO SIERRA Rep #:[id number] : 1950 74 From: Celia Toribio MD PCP: Dr. Daija Morton MD Status:ADM I N Location: [address] Reason for Visit Reason for Visit: [...] (Auto) 64.8, Lymph % (Auto) 17.8 L, Will % (Auto) 7.6, Eos % (Auto) 7.8 [...] to thrive -Patient recently had been at [facility] and was discharged 08/20/2024 buthas been having [...] and DC plan in place -08/30: Awaiting [facility] and APS determinations about payee so that patient can be placed at [facility], further dispo pending this # Urinary tract [...] documentation, 36minutes Charges/Coding Visit Charges Inpatient E&M: 26307 Subs Hosp L2 08/30/24 1111 <Electronically signed by Celia Toribio MD> Cosigner Signature (if applicable): CC: ~ Signed [facility] Work Phone: [phone] Progress note [facility] Medical Records Department [address] [place] [address] Progress Note - Hospitalist 08/30/24708 MR#: [id number] Acct: [id number] Name: PEDRO PABLO SIERRA Rep #:[id number] : 1950 74 From: Celia Toribio MD PCP: Dr. Daija Morton MD Status:ADM I N Location: [place] [address] Reason for Visit Reason for Visit: Diagnoses [...] %(Auto) 64.8, Lymph % (Auto) 17.8 L, Will % (Auto) 7.6, Eos % (Auto) 7.8 [...] to thrive -Patient recently had been at [facility] and was discharged 08/20/2024 buthas been having diarrhea since that time -May be due to diarrhea but cannot say definitively, checking UA -PT/OT -08/27: UA ordered, yet to be collected, will follow-up, continue to work with physical therapy, case management social work following -08/28: Patient now agreeable to placement, placement avenues been pursued -08/29: Patient pending acceptance and pre-CERT for [facility], patient stable and willbe cleared for discharge once antibiotic and DC plan in place -08/30: Awaiting [facility] and [facility]PS determinations about payee so that patient can be placedat [facility], further dispo pending this # Urinary tract [...] documentation, 36minutes Charges/Coding Visit Charges Inpatient E&M: 69762 Subs Hosp L2 08/30/24 1111 Cosigner Signature (if applicable): CC: ~ Signed [facility]03-13-2025 Progress note Author Celia Toribio [facility] Note Date/Time August 29, 2024 5:2 5pm [facility] Medical Records Department [address] [place] [address] Progress Note - Hospitalist 08/29/24 0805 MR#: [id number] Acct: [id number] Name: PEDRO PABLO SIERRA Rep #:[id number] : 1950 74 From: Celia Toribio MD PCP: Dr. Daija Morton MD Status:ADM I N Location: [place]3 YI510-0 Reason for Visit Reason for Visit: Diagnoses [...] % (Auto) 59.8, Lymph % (Auto) 22.3, Will % (Auto) 8.0, Eos % (Auto) 8.2 [...] to thrive -Patient recently had been at [facility] and was discharged 08/20/2024 buthas been having [...] documentation, 35minutes Charges/Coding Visit Charges Inpatient E&M: 82644 Subs Hosp L2 08/29/24 5391 <Electronically signed by Celia Toribio MD> Cosigner Signature (if applicable): CC: ~ Signed [facility] Work Phone: [phone]) 445-136303-13-2025 Progress note [facility] Medical Records Department [address] [place] [address] Progress Note - Hospitalist 08/29/24804 MR#: [id number] Acct: [id number] Name: PEDRO PABLO SIERRA Rep #:[id number] : 1950 74 From: Celia Toribio MD PCP: Dr. Daija Morton MD Status:ADM I N Location: [facility] RB610-1 Reason for Visit Reason for Visit: Diagnoses [...] % (Auto) 59.8, Lymph % (Auto) 22.3, Will % (Auto) 8.0, Eos % (Auto) 8.2 [...] to thrive -Patient recently had been at [facility] and was discharged 08/20/2024 buthas been having [...] bowel movement earliertoday, diarrhea resolved #[facility]px[facility] Toribio MD Time spent in the patient's overall evaluation,decision-making process, review of diagnostic data, adjustment of management, discussion with other providers, nursing nursing and ancillary staff involved in patient's care documentation, 35minutes Charges/Coding Visit Charges Inpatient E&M: 66944 Subs Hosp L2 08/29/24 1725 Cosigner Signature (if applicable): CC: ~ Signed [facility]03-12-2025 Progress note Author Celia Toribio [facility] Note Date/Time August 28, 2024 3:0 4pm [facility] Medical Records Department [address] [place] [address] Progress Note - Hospitalist 08/28/24 1458 MR#: [id number] Acct: [id number] Name: PEDRO PABLO SIERRA Rep #:[id number] : 1950 74 From: Celia Toribio MD PCP: Dr. Daija Morton MD Status:ADM I N Location: [place] [address] Reason for Visit Reason for Visit: Diagnoses [...] % (Auto) 55.6, Lymph % (Auto) 23.4, Will % (Auto) 11.3 H, Eos % (Auto) [...] to thrive -Patient recently had been at [facility] and was discharged 08/20/2024 buthas been having [...] home medications #GERD -Continue PPI #DVT ppx[facility] Celia Toribio MD Time spent in the patient's overall evaluation,decision-making process, review of diagnostic data, adjustment of management, discussion with other providers, nursing nursing and ancillary staff involved in patient's care documentation, 35minutes Charges/Coding Visit Charges Inpatient E&M: 50486 Subs Hosp L2 08/28/24 1504 <Electronically signed by Celia Toribio MD> Cosigner Signature (if applicable): CC: ~ Signed [facility] Work Phone: [phone]) 686-983003-12-2025 Progress note [facility] Medical Records Department [address] [place] [address] Progress Note - Hospitalist 08/28/24 1912 MR#: [id number] Acct: [id number] Name: PEDRO PABLO SIERRA Rep #:[id number] : 1950 74 From: Celia Toribio MD PCP: Dr. Daija Morton MD Status:ADM I N Location: [place] [address] Reason for Visit Reason for Visit: Diagnoses [...] % (Auto) 55.6, Lymph % (Auto) 23.4, Will % (Auto) 11.3 H, Eos % (Auto) [...] to thrive -Patient recently had been at [facility] and was discharged 08/20/2024 buthas been having [...] home medications #GERD -Continue PPI #DVT ppx: [facility] Celia Toribio MD Time spent in the patient's overall evaluation,decision-making process, review of diagnostic data, adjustment of management, discussion with other providers, nursing nursing and ancillary staff involved in patient's care documentation, 35minutes Charges/Coding Visit Charges Inpatient E&M: 94704 Subs Hosp L2 08/28/24 1504 Cosigner Signature (if applicable): CC: ~ Signed [facility]03-11-2025 Evaluation note* Diagnosis Onset Date Resolution Status Admit Date Acute diarrhea acute August 6:22pm Debility acute August 27 6:22pm Weakness acute August 27 6:22pm 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 August 172024 6:22pm [facility] Work Phone: 1(242) 170-631103-11-2025 Evaluation note* Diagnosis Onset Date Resolution Status Admit Date Acute diarrhea resolved August 6:22pm Debility inactive August 27 6:22pm Failure to thrive inactive August 172024 6:22pm Weakness inactive August 27 6:22pm [facility] Work Phone: 1([phone]) 912-754303-11-2025 Progress note Author Celia Toribio [facility] Note Date/Time August 27, 2024 4:1 3pm [facility] Medical Records Department [address] [place] [address] Progress Note - Hospitalist 08/27/24 161 MR#: [id number] Acct: [id number] Name: PEDRO PABLO SIERRA Rep #:[id number] : 1950 74 From: Celia Toribio MD PCP: Dr. Daija Morton MD Status:ADM I NO Location: [place]3 AA378-3 Hospitalist Note Repeat hemoglobin actually improved, suspect that this was then margin of bladder, will DC FOBT 08/27/24 1613 <Electronically signed by Celia Toribio MD> Cosigner Signature (if applicable): CC: ~ Signed [facility] Work Phone: [phone]0-02-3054 Progress note [facility] Medical Records Department [address] [place] [address] Progress Note - Hospitalist 08/27/24 1613 MR#: [id number] Acct: [id number] Name: PEDRO PABLO SIERRA Rep #:[id number] : 1950 74 From: Celia Toribio MD PCP: Dr. Daija Morton MD Status:ADM I NO Location: [place]3 GD036-4 Hospitalist Note Repeat hemoglobin actually improved, suspect that this was then margin of bladder, will DC FOBT 08/27/24 1613 Cosigner Signature (if applicable): CC: ~ Signed [facility]03-11-2025 Progress note Author [facility] Note Date/Time August 27, 2024 1:3 2pm [facility] Medical Records Department [address] [place] [address] Progress Note - Hospitalist 08/27/24 1332 MR#: [id number] Acct: [id number] Name: PEDRO PABLO SIERRA R Rep #:[id number] : 1950 74 From: Celia Toribio MD PCP: Dr. Daija Morton MD Status:ADM I NO Location: [place] [address] Hospitalist Note UA abnormal and is suggestive of UTI and given this and patient suprapubic tenderness we will start patient on Rocephin and await urine culture 08/27/242 <Electronically signed by Celia Toribio MD> Cosigner Signature (if applicable): CC: ~ Signed [facility] Work Phone: [phone]) 869-641903-11-2025 Progress note Author [facility] Note Date/Time August 27, 2024 12: 52pm [facility] Medical Records Department [address] [place] [address] Progress Note - Hospitalist 08/27/24 0831 MR#: [id number] Acct: [id number] Name: PEDRO PABLO SIERRA R Rep #:[id number] : 1950 74 From: Celia Toribio MD PCP: Dr. Daija Morton MD Status:ADM I NO Location: [place]3 AN828-8 Reason for Visit Reason for Visit: Diagnoses [...] Neut % (Auto) 56.2, Lymph % (Auto) 23.0,Will % (Auto) 13.1 H, Eos % (Auto) [...] to thrive -Patient recently had been at [facility] and was discharged 08/20/2024 buthas been having [...] documentation, 36minutes Charges/Coding Visit Charges Inpatient E&M: 57972 Subs Hosp L2 08/27/24 1252 <Electronically signed by Celia oTribio MD> Cosigner Signature (if applicable): CC: ~ Signed [facility] Work Phone: [phone]) 706-845203-11-2025 Progress note [facility] Medical Records Department [address] [place] [address] Progress Note - Hospitalist 08/27/24 1332 MR#: [id number] Acct: [id number] Name: PEDRO PABLO SIERRA Rep #:[id number] : 1950 74 From: Celia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 evaluate-->recommending home PT 07/08/2014 Discharge with home care today Ischemia of extremity 10/14/20132013 Overview: - admitted to [facility] vascular surgery twice in October 2013, s/p left femoral endarterectomy with patch, US guided access RCFA, L profundaplasty, RUFUS recanalization & stenting, CRISPIN stenting on 10/23/13 for aorto-occlusive critical limb ischemia - S/p 11/12-11/19/13 [facility] Vascular Surgery for aortoiliac thrombosis (BLE [...] of this encounter (statuses as of 08/21/2023) [facility] Miscellaneous Notes* Telephone Encounter - Anjel Braga [...] you. Bessy Freed RN documented in this encounterSelect Medical [facility]05-27-2021 Miscellaneous Notes* Telephone Encounter - Daija Morton [...] Jonathon. Phoned [facility] to let her know [facility] is aware of changed coumadin dose. She is going to call [facility], to see if they are bringing patient new pill pack. 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 * Telephone Encounter - Bing Delgado RN - 11/12/2020 12:50 PM EDT [facility]- [facility]- reports patient's new coumadin instructions have not been updated to [facility]. Attempted to call [facility]- they are closed for lunch. Will try again when they re-open at 1 pm. documented in this encounterSelect Medical [facility]05-26-2021 History of Present illness Narrative* Nahed Aponte [...] 11, 2020 10:32 AM documented in this encounterSelect Medical [facility]04-24[facility]2020 History of Past illness Narrative* Problem Noted [...] Neurotoin BID at home Patient started on [place] postoperatively, pain controlled at time of discharge. Ischemia of extremity 10/14/2013 02/10/2014 Overview: - admitted to [facility] vascular surgery twice in October 2013, s/p left femoral endarterectomy with patch, US guided access RCFA, L profundaplasty, RUFUS recanalization & stenting, CRISPIN stenting on 10/23/13 for aorto-occlusive critical limb ischemia - S/p 11/12-11/19/13 [facility] Vascular Surgery for aortoiliac thrombosis (BLE [...] of this encounter (statuses as of 09/14/2021) [facility] History of Past illness Narrative* Problem Noted [...] Neurotoin BID at home Patient started on [place] postoperatively, pain controlled at time of discharge. Ischemia of extremity 10/14/2013 02/10/2014 Overview: - admitted to [facility] vascular surgery twice in October 2013, s/p left femoral endarterectomy with patch, US guided access RCFA, L profundaplasty, RUFUS recanalization & stenting, CRISPIN stenting on 10/23/13 for aorto-occlusive critical limb ischemia - S/p 11/12-11/19/13 [facility] Vascular Surgery for aortoiliac thrombosis (BLE [...] of this encounter (statuses as of 09/15/2021) [facility] History of Past illness Narrative* Problem Noted [...] Neurotoin BID at home Patient started on [place] postoperatively, pain controlled at time of discharge. Ischemia of extremity 10/14/2013 02/10/2014 Overview: - admitted to [facility] vascular surgery twice in October 2013, [...] of this encounter (statuses as of 09/15/2021) [facility] History of Past illness Narrative* Problem Noted [...] Neurotoin BID at home Patient started on [place] postoperatively, pain controlled at time of discharge. Ischemia of extremity 10/14/2013 02/10/2014 Overview: - admitted to [facility] vascular surgery twice in October 2013, s/p left femoral endarterectomy with patch, US guided access RCFA, L profundaplasty, RUFUS recanalization & stenting, CRISPIN stenting on 10/23/13 for aorto-occlusive critical limb ischemia - S/p 11/12-11/19/13 [facility] Vascular Surgery for aortoiliac thrombosis (BLE [...] of this encounter (statuses as of 09/16/2021) [facility] History of Past illness Narrative* Problem Noted [...] Neurotoin BID at home Patient started on [place] postoperatively, pain controlled at time of discharge. Ischemia of extremity 10/14/2013 02/10/2014 Overview: - admitted to [facility] vascular surgery twice in October 2013, [...] of this encounter (statuses as of 09/16/2021) [facility] History of Past illness Narrative* Problem Noted [...] Neurotoin BID at home Patient started on [place] postoperatively, pain controlled at time of discharge. Ischemia of extremity 10/14/2013 02/10/2014 Overview: - admitted to [facility] vascular surgery twice in October 2013, s/p left femoral endarterectomy with patch, US guided access RCFA, L profundaplasty, RUFUS recanalization & stenting, CRISPIN stenting on 10/23/13 for aorto-occlusive critical limb ischemia - S/p 11/12-11/19/13 [facility] Vascular Surgery for aortoiliac thrombosis (BLE [...] of this encounter (statuses as of 09/17/2021) [facility] History of Past illness Narrative* Problem Noted [...] Neurotoin BID at home Patient started on [place] postoperatively, pain controlled at time of discharge. Ischemia of extremity 10/14/2013 02/10/2014 Overview: - admitted to [facility] vascular surgery twice in October 2013, [...] of this encounter (statuses as of 09/17/2021) [facility] History of Past illness Narrative* Problem Noted [...] Neurotoin BID at home Patient started on [place] postoperatively, pain controlled at time of discharge. Ischemia of extremity 10/14/2013 02/10/2014 Overview: - admitted to [facility] vascular surgery twice in October 2013, s/p left femoral endarterectomy with patch, US guided access RCFA, L profundaplasty, RUFUS recanalization & stenting, CRISPIN stenting on 10/23/13 for aorto-occlusive critical limb ischemia - S/p 11/12-11/19/13 [facility] Vascular Surgery for aortoiliac thrombosis (BLE [...] of this encounter (statuses as of 09/17/2021) [facility] History of Past illness Narrative* Problem Noted [...] Neurotoin BID at home Patient started on [place] postoperatively, pain controlled at time of discharge. Ischemia of extremity 10/14/2013 02/10/2014 Overview: - admitted to [facility] vascular surgery twice in October 2013, [...] of this encounter (statuses as of 09/18/2021) [facility] History of Past illness Narrative* Problem Noted [...] Neurotoin BID at home Patient started on [place] postoperatively, pain controlled at time of discharge. Ischemia of extremity 10/14/2013 02/10/2014 Overview: - admitted to [facility] vascular surgery twice in October 2013, [...] of this encounter (statuses as of 09/20/2021) [facility] History of Past illness Narrative* Problem Noted [...] Neurotoin BID at home Patient started on [place] postoperatively, pain controlled at time of discharge. Ischemia of extremity 10/14/2013 02/10/2014 Overview: - admitted to [facility] vascular surgery twice in October 2013, [...] of this encounter (statuses as of 09/21/2021) [facility] History of Past illness Narrative* Problem Noted [...] Neurotoin BID at home Patient started on [place] postoperatively, pain controlled at time of discharge. Ischemia of extremity 10/14/2013 02/10/2014 Overview: - admitted to [facility] vascular surgery twice in October 2013, s/p left femoral endarterectomy with patch, US guided access RCFA, L profundaplasty, RUFUS recanalization & stenting, CRISPIN stenting on 10/23/13 for aorto-occlusive critical limb ischemia - S/p 11/12-11/19/13 [facility] Vascular Surgery for aortoiliac thrombosis (BLE [...] of this encounter (statuses as of 09/22/2021) [facility] History of Past illness Narrative* Problem Noted [...] Neurotoin BID at home Patient started on [place] postoperatively, pain controlled at time of discharge. Ischemia of extremity 10/14/2013 02/10/2014 Overview: - admitted to [facility] vascular surgery twice in October 2013, [...] of this encounter (statuses as of 09/29/2021) [facility] History of Past illness Narrative* Problem Noted [...] Neurotoin BID at home Patient started on [place] postoperatively, pain controlled at time of discharge. Ischemia of extremity 10/14/2013 02/10/2014 Overview: - admitted to [facility] vascular surgery twice in October 2013, s/p left femoral endarterectomy with patch, US guided access RCFA, L profundaplasty, RUFUS recanalization & stenting, CRISPIN stenting on 10/23/13 for aorto-occlusive critical limb ischemia - S/p 11/12-11/19/13 [facility] Vascular Surgery for aortoiliac thrombosis (BLE [...] of this encounter (statuses as of 10/04/2021) [facility] History of Past illness Narrative* Problem Noted [...] Neurotoin BID at home Patient started on [place] postoperatively, pain controlled at time of discharge. Ischemia of extremity 10/14/2013 02/10/2014 Overview: - admitted to [facility] vascular surgery twice in October 2013, [...] of this encounter (statuses as of 10/06/2021) [facility] History of Past illness Narrative* Problem Noted [...] Neurotoin BID at home Patient started on [place] postoperatively, pain controlled at time of discharge. Ischemia of extremity 10/14/2013 02/10/2014 Overview: - admitted to [facility] vascular surgery twice in October 2013, s/p left femoral endarterectomy with patch, US guided access RCFA, L profundaplasty, RUFUS recanalization & stenting, CRISPIN stenting on 10/23/13 for aorto-occlusive critical limb ischemia - S/p 11/12-11/19/13 [facility] Vascular Surgery for aortoiliac thrombosis (BLE [...] of this encounter (statuses as of 10/07/2021) [facility] History of Past illness Narrative* Problem Noted [...] Neurotoin BID at home Patient started on [place] postoperatively, pain controlled at time of discharge. Ischemia of extremity 10/14/2013 02/10/2014 Overview: - admitted to [facility] vascular surgery twice in October 2013, [...] of this encounter (statuses as of 10/07/2021) [facility] History of Past illness Narrative* Problem Noted [...] Neurotoin BID at home Patient started on [place] postoperatively, pain controlled at time of discharge. Ischemia of extremity 10/14/2013 02/10/2014 Overview: - admitted to [facility] vascular surgery twice in October 2013, s/p left femoral endarterectomy with patch, US guided access RCFA, L profundaplasty, RUFUS recanalization & stenting, CRISPIN stenting on 10/23/13 for aorto-occlusive critical limb ischemia - S/p 11/12-11/19/13 [facility] Vascular Surgery for aortoiliac thrombosis (BLE [...] of this encounter (statuses as of 10/08/2021) [facility] History of Past illness Narrative* Problem Noted [...] Neurotoin BID at home Patient started on [place] postoperatively, pain controlled at time of discharge. [...] of this encounter (statuses as of 10/13/2021) [facility] History of Past illness Narrative* Problem Noted [...] Neurotoin BID at home Patient started on [place] postoperatively, pain controlled at time of discharge. Ischemia of extremity 10/14/2013 02/10/2014 Overview: - admitted to [facility] vascular surgery twice in October 2013, s/p left femoral endarterectomy with patch, US guided access RCFA, L profundaplasty, RUFUS recanalization & stenting, CRISPIN stenting on 10/23/13 for aorto-occlusive critical limb ischemia - S/p 11/12-11/19/13 [facility] Vascular Surgery for aortoiliac thrombosis (BLE [...] of this encounter (statuses as of 10/13/2021) [facility] History of Past illness Narrative* Problem Noted [...] Neurotoin BID at home Patient started on [place] postoperatively, pain controlled at time of discharge. Ischemia of extremity 10/14/2013 02/10/2014 Overview: - admitted to [facility] vascular surgery twice in October 2013, s/p left femoral endarterectomy with patch, US guided access RCFA, L profundaplasty, RUFUS recanalization & stenting, CRISPIN stenting on 10/23/13 for aorto-occlusive critical limb ischemia - S/p 11/12-11/19/13 [facility] Vascular Surgery for aortoiliac thrombosis (BLE [...] of this encounter (statuses as of 10/14/2021) [facility] History of Past illness Narrative* Problem Noted [...] Neurotoin BID at home Patient started on [place] postoperatively, pain controlled at time of discharge. Ischemia of extremity 10/14/2013 02/10/2014 Overview: - admitted to [facility] vascular surgery twice in October 2013, s/p left femoral endarterectomy with patch, US guided access RCFA, L profundaplasty, RUFUS recanalization & stenting, CRISPIN stenting on 10/23/13 for aorto-occlusive critical limb ischemia - S/p 11/12-11/19/13 [facility] Vascular Surgery for aortoiliac thrombosis (BLE [...] of this encounter (statuses as of 10/18/2021) [facility] History of Past illness Narrative* Problem Noted [...] Neurotoin BID at home Patient started on [place] postoperatively, pain controlled at time of discharge. Ischemia of extremity 10/14/2013 02/10/2014 Overview: - admitted to [facility] vascular surgery twice in October 2013, s/p left femoral endarterectomy with patch, US guided access RCFA, L profundaplasty, RUFUS recanalization & stenting, CRISPIN stenting on 10/23/13 for aorto-occlusive critical limb ischemia - S/p 11/12-11/19/13 [facility] Vascular Surgery for aortoiliac thrombosis (BLE [...] of this encounter (statuses as of 10/21/2021) [facility] History of Past illness Narrative* Problem Noted [...] Neurotoin BID at home Patient started on [place] postoperatively, pain controlled at time of discharge. Ischemia of extremity 10/14/2013 02/10/2014 Overview: - [facility] [facility] October [facility], s/p left femoral endarterectomy with patch, US guided access RCFA, L profundaplasty, RUFUS recanalization & stenting, CRISPIN stenting on 10/23/13 for aorto-occlusive critical limb ischemia - S/p 11/12-11/19/13 [facility] Vascular Surgery for aortoiliac thrombosis (BLE [...] of this encounter (statuses as of 10/21/2021) [facility]04-[facility]2020 History of Past illness Narrative* Problem Noted [...] Neurotoin BID at home Patient started on [place] postoperatively, pain controlled at time of discharge. Ischemia of extremity 10/14/2013 02/10/2014 Overview: - admitted to [facility] vascular surgery twice in October 2013, s/p left femoral endarterectomy with patch, US guided access RCFA, L profundaplasty, RUFUS recanalization & stenting, CRISPIN stenting on 10/23/13 for aorto-occlusive critical limb ischemia - S/p 11/12-11/19/13 [facility] Vascular Surgery for aortoiliac thrombosis (BLE [...] of this encounter (statuses as of 10/22/2021) [facility]04-[facility]2020 History of Past illness Narrative* Problem Noted [...] Neurotoin BID at home Patient started on [place] postoperatively, pain controlled at time of discharge. [...] of this encounter (statuses as of 10/22/2021) [facility]2020 History of Past illness Narrative* Problem Noted [...] Neurotoin BID at home Patient started on [place] postoperatively, pain controlled at time of discharge. Ischemia of extremity 10/14/2013 02/10/2014 Overview: - admitted to [facility] vascular surgery twice in October 2013, [...] of this encounter (statuses as of 10/22/2021) [facility]2020 History of Past illness Narrative* Problem Noted [...] Neurotoin BID at home Patient started on [place] postoperatively, pain controlled at time of discharge. Ischemia of extremity 10/14/2013 02/10/2014 Overview: - admitted to [facility] vascular surgery twice in October 2013, s/p left femoral endarterectomy with patch, US guided access RCFA, L profundaplasty, RUFUS recanalization & stenting, CRISPIN stenting on 10/23/13 for aorto-occlusive critical limb ischemia - S/p 11/12-11/19/13 [facility] Vascular Surgery for aortoiliac thrombosis (BLE [...] of this encounter (statuses as of 10/27/2021) [facility]2020 History of Past illness Narrative* Problem Noted [...] Neurotoin BID at home Patient started on [place] postoperatively, pain controlled at time of discharge. Ischemia of extremity 10/14/2013 02/10/2014 Overview: - admitted to [facility] vascular surgery twice in October 2013, s/p left femoral endarterectomy with patch, US guided access RCFA, L profundaplasty, RUFUS recanalization & stenting, CRISPIN stenting on 10/23/13 for aorto-occlusive critical limb ischemia - S/p 11/12-11/19/13 [facility] Vascular Surgery for aortoiliac thrombosis (BLE [...] of this encounter (statuses as of 11/08/2021) [facility]2020 History of Past illness Narrative* Problem Noted [...] Neurotoin BID at home Patient started on [place] postoperatively, pain controlled at time of discharge. Ischemia of extremity 10/14/2013 02/10/2014 Overview: - admitted to [facility] vascular surgery twice in October 2013, s/p left femoral endarterectomy with patch, US guided access RCFA, L profundaplasty, RUFUS recanalization & stenting, CRISPIN stenting on 10/23/13 for aorto-occlusive critical limb ischemia - S/p 11/12-11/19/13 [facility] Vascular Surgery for aortoiliac thrombosis (BLE [...] of this encounter (statuses as of 11/08/2021) [facility]2020 History of Past illness Narrative* Problem Noted [...] Neurotoin BID at home Patient started on [place] postoperatively, pain controlled at time of discharge. Ischemia of extremity 10/14/2013 02/10/2014 Overview: - admitted to [facility] vascular surgery twice in October 2013, s/p left femoral endarterectomy with patch, US guided access RCFA, L profundaplasty, RUFUS recanalization & stenting, CRISPIN stenting on 10/23/13 for aorto-occlusive critical limb ischemia - S/p 11/12-11/19/13 [facility] Vascular Surgery for aortoiliac thrombosis (BLE [...] of this encounter (statuses as of 11/11/2021) [facility]2020 History of Past illness Narrative* Problem Noted [...] Neurotoin BID at home Patient started on [place] postoperatively, pain controlled at time of discharge. Ischemia of extremity 10/14/2013 02/10/2014 Overview: - admitted to [facility] vascular surgery twice in October 2013, s/p left femoral endarterectomy with patch, US guided access RCFA, L profundaplasty, RUFUS recanalization & stenting, CRISPIN stenting on 10/23/13 for aorto-occlusive critical limb ischemia - S/p 11/12-11/19/13 [facility] Vascular Surgery for aortoiliac thrombosis (BLE [...] of this encounter (statuses as of 11/12/2021) [facility]2020 History of Past illness Narrative* Problem Noted [...] Neurotoin BID at home Patient started on [place] postoperatively, pain controlled at time of discharge. Ischemia of extremity 10/14/2013 02/10/2014 Overview: - admitted to [facility] vascular surgery twice in October 2013, s/p left femoral endarterectomy with patch, US guided access RCFA, L profundaplasty, RUFUS recanalization & stenting, CRISPIN stenting on 10/23/13 for aorto-occlusive critical limb ischemia - S/p 11/12-11/19/13 [facility] Vascular Surgery for aortoiliac thrombosis (BLE [...] of this encounter (statuses as of 11/16/2021) [facility] History of Past illness Narrative* Problem Noted [...] Neurotoin BID at home Patient started on [place] postoperatively, pain controlled at time of discharge. Ischemia of extremity 10/14/2013 02/10/2014 Overview: - admitted to [facility] vascular surgery twice in October 2013, s/p left femoral endarterectomy with patch, US guided access RCFA, L profundaplasty, RUFUS recanalization & stenting, CRISPIN stenting on 10/23/13 for aorto-occlusive critical limb ischemia - S/p 11/12-11/19/13 [facility] Vascular Surgery for aortoiliac thrombosis (BLE [...] of this encounter (statuses as of 11/17/2021) [facility] History of Past illness Narrative* Problem Noted [...] Neurotoin BID at home Patient started on [place] postoperatively, pain controlled at time of discharge. Ischemia of extremity 10/14/2013 02/10/2014 Overview: - admitted to [facility] vascular surgery twice in October 2013, s/p left femoral endarterectomy with patch, US guided access RCFA, L profundaplasty, RUFUS recanalization & stenting, CRISPIN stenting on 10/23/13 for aorto-occlusive critical limb ischemia - S/p 11/12-11/19/13 [facility] Vascular Surgery for aortoiliac thrombosis (BLE [...] of this encounter (statuses as of 11/17/2021) [facility]2020 History of Past illness Narrative* Problem Noted [...] Neurotoin BID at home Patient started on [place] postoperatively, pain controlled at time of discharge. Ischemia of extremity 10/14/2013 02/10/2014 Overview: - admitted to [facility] vascular surgery twice in October 2013, s/p left femoral endarterectomy with patch, US guided access RCFA, L profundaplasty, RUFUS recanalization & stenting, CRISPIN stenting on 10/23/13 for aorto-occlusive critical limb ischemia - S/p 11/12-11/19/13 [facility] Vascular Surgery for aortoiliac thrombosis (BLE [...] of this encounter (statuses as of 11/18/2021) [facility]2020 History of Past illness Narrative* Problem Noted [...] Neurotoin BID at home Patient started on [place] postoperatively, pain controlled at time of discharge. Ischemia of extremity 10/14/2013 02/10/2014 Overview: - admitted to [facility] vascular surgery twice in October 2013, s/p left femoral endarterectomy with patch, US guided access RCFA, L profundaplasty, RUFUS recanalization & stenting, CRISPIN stenting on 10/23/13 for aorto-occlusive critical limb ischemia - S/p 11/12-11/19/13 [facility] Vascular Surgery for aortoiliac thrombosis (BLE [...] of this encounter (statuses as of 11/19/2021) [facility] History of Past illness Narrative* Problem Noted [...] Neurotoin BID at home Patient started on [place] postoperatively, pain controlled at time of discharge. Ischemia of extremity 10/14/2013 02/10/2014 Overview: - admitted to [facility] vascular surgery twice in October 2013, s/p left femoral endarterectomy with patch, US guided access RCFA, L profundaplasty, RUFUS recanalization & stenting, CRISPIN stenting on 10/23/13 for aorto-occlusive critical limb ischemia - S/p 11/12-11/19/13 [facility] Vascular Surgery for aortoiliac thrombosis (BLE [...] of this encounter (statuses as of 11/19/2021) [facility]2020 History of Past illness Narrative* Problem Noted [...] Neurotoin BID at home Patient started on [place] postoperatively, pain controlled at time of discharge. Ischemia of extremity 10/14/2013 02/10/2014 Overview: - admitted to [facility] vascular surgery twice in October 2013, s/p left femoral endarterectomy with patch, US guided access RCFA, L profundaplasty, RUFUS recanalization & stenting, CRISPIN stenting on 10/23/13 for aorto-occlusive critical limb ischemia - S/p 11/12-11/19/13 [facility] Vascular Surgery for aortoiliac thrombosis (BLE [...] of this encounter (statuses as of 11/26/2021) [facility]2020 History of Past illness Narrative* Problem Noted [...] Neurotoin BID at home Patient started on [place] postoperatively, pain controlled at time of discharge. Ischemia of extremity 10/14/2013 02/10/2014 Overview: - admitted to [facility] vascular surgery twice in October 2013, s/p left femoral endarterectomy with patch, US guided access RCFA, L profundaplasty, RUFUS recanalization & stenting, CRISPIN stenting on 10/23/13 for aorto-occlusive critical limb ischemia - S/p 11/12-11/19/13 [facility] Vascular Surgery for aortoiliac thrombosis (BLE [...] of this encounter (statuses as of 11/30/2021) [facility]2020 History of Past illness Narrative* Problem Noted [...] Neurotoin BID at home Patient started on [place] postoperatively, pain controlled at time of discharge. Ischemia of extremity 10/14/2013 02/10/2014 Overview: - admitted to [facility] vascular surgery twice in October 2013, s/p left femoral endarterectomy with patch, US guided access RCFA, L profundaplasty, RUFUS recanalization & stenting, CRISPIN stenting on 10/23/13 for aorto-occlusive critical limb ischemia - S/p 11/12-11/19/13 [facility] Vascular Surgery for aortoiliac thrombosis (BLE [...] of this encounter (statuses as of 12/03/2021) [facility]2020 History of Past illness Narrative* Problem Noted [...] Neurotoin BID at home Patient started on [place] postoperatively, pain controlled at time of discharge. Ischemia of extremity 10/14/2013 02/10/2014 Overview: - admitted to [facility] vascular surgery twice in October 2013, s/p left femoral endarterectomy with patch, US guided access RCFA, L profundaplasty, RUFUS recanalization & stenting, CRISPIN stenting on 10/23/13 for aorto-occlusive critical limb ischemia - S/p 11/12-11/19/13 [facility] Vascular Surgery for aortoiliac thrombosis (BLE [...] of this encounter (statuses as of 12/07/2021) [facility]2020 History of Past illness Narrative* Problem Noted [...] Neurotoin BID at home Patient started on [place] postoperatively, pain controlled at time of discharge. Ischemia of extremity 10/14/2013 02/10/2014 Overview: - admitted to [facility] vascular surgery twice in October 2013, s/p left femoral endarterectomy with patch, US guided access RCFA, L profundaplasty, RUFUS recanalization & stenting, CRISPIN stenting on 10/23/13 for aorto-occlusive critical limb ischemia - S/p 11/12-11/19/13 [facility] Vascular Surgery for aortoiliac thrombosis (BLE [...] of this encounter (statuses as of 01/14/2022) [facility]2020 History of Past illness Narrative* Problem Noted [...] Neurotoin BID at home Patient started on [place] postoperatively, pain controlled at time of discharge. Ischemia of extremity 10/14/2013 02/10/2014 Overview: - admitted to [facility] vascular surgery twice in October 2013, s/p left femoral endarterectomy with patch, US guided access RCFA, L profundaplasty, RUFUS recanalization & stenting, CRISPIN stenting on 10/23/13 for aorto-occlusive critical limb ischemia - S/p 11/12-11/19/13 [facility] Vascular Surgery for aortoiliac thrombosis (BLE [...] of this encounter (statuses as of 01/14/2022) [facility]2020 History of Past illness Narrative* Problem Noted [...] Neurotoin BID at home Patient started on [place] postoperatively, pain controlled at time of discharge. Ischemia of extremity 10/14/2013 02/10/2014 Overview: - admitted to [facility] vascular surgery twice in October 2013, s/p left femoral endarterectomy with patch, US guided access RCFA, L profundaplasty, RUFUS recanalization & stenting, CRISPIN stenting on 10/23/13 for aorto-occlusive critical limb ischemia - S/p 11/12-11/19/13 [facility] Vascular Surgery for aortoiliac thrombosis (BLE [...] of this encounter (statuses as of 01/25/2022) [facility]2020 History of Past illness Narrative* Problem Noted [...] Neurotoin BID at home Patient started on [place] postoperatively, pain controlled at time of discharge. Ischemia of extremity 10/14/2013 02/10/2014 Overview: - admitted to [facility] vascular surgery twice in October 2013, s/p left femoral endarterectomy with patch, US guided access RCFA, L profundaplasty, RUFUS recanalization & stenting, CRISPIN stenting on 10/23/13 for aorto-occlusive critical limb ischemia - S/p 11/12-11/19/13 [facility] Vascular Surgery for aortoiliac thrombosis (BLE [...] of this encounter (statuses as of 01/28/2022) [facility]2020 History of Past illness Narrative* Problem Noted [...] Neurotoin BID at home Patient started on [place] postoperatively, pain controlled at time of discharge. Ischemia of extremity 10/14/2013 02/10/2014 Overview: - admitted to [facility] vascular surgery twice in October 2013, s/p left femoral endarterectomy with patch, US guided access RCFA, L profundaplasty, RUFUS recanalization & stenting, CRISPIN stenting on 10/23/13 for aorto-occlusive critical limb ischemia - S/p 11/12-11/19/13 [facility] Vascular Surgery for aortoiliac thrombosis (BLE [...] of this encounter (statuses as of 01/31/2022) [facility] History of Past illness Narrative* Problem Noted [...] Neurotoin BID at home Patient started on [place] postoperatively, pain controlled at time of discharge. Ischemia of extremity 10/14/2013 02/10/2014 Overview: - admitted to [facility] vascular surgery twice in October 2013, s/p left femoral endarterectomy with patch, US guided access RCFA, L profundaplasty, RUFUS recanalization & stenting, CRISPIN stenting on 10/23/13 for aorto-occlusive critical limb ischemia - S/p 11/12-11/19/13 [facility] Vascular Surgery for aortoiliac thrombosis (BLE [...] of this encounter (statuses as of 01/31/2022) [facility]2020 History of Past illness Narrative* Problem Noted [...] Neurotoin BID at home Patient started on [place] postoperatively, pain controlled at time of discharge. Ischemia of extremity 10/14/2013 02/10/2014 Overview: - admitted to [facility] vascular surgery twice in October 2013, s/p left femoral endarterectomy with patch, US guided access RCFA, L profundaplasty, RUFUS recanalization & stenting, CRISPIN stenting on 10/23/13 for aorto-occlusive critical limb ischemia - S/p 11/12-11/19/13 [facility] Vascular Surgery for aortoiliac thrombosis (BLE [...] of this encounter (statuses as of 01/31/2022) [facility] History of Past illness Narrative* Problem Noted [...] Neurotoin BID at home Patient started on [place] postoperatively, pain controlled at time of discharge. Ischemia of extremity 10/14/2013 02/10/2014 Overview: - admitted to [facility] vascular surgery twice in October 2013, s/p left femoral endarterectomy with patch, US guided access RCFA, L profundaplasty, RUFUS recanalization & stenting, CRISPIN stenting on 10/23/13 for aorto-occlusive critical limb ischemia - S/p 11/12-11/19/13 [facility] Vascular Surgery for aortoiliac thrombosis (BLE [...] of this encounter (statuses as of 02/03/2022) [facility] History of Past illness Narrative* Problem Noted [...] Neurotoin BID at home Patient started on [place] postoperatively, pain controlled at time of discharge. Ischemia of extremity 10/14/2013 02/10/2014 Overview: - admitted to [facility] vascular surgery twice in October 2013, s/p left femoral endarterectomy with patch, US guided access RCFA, L profundaplasty, RUFUS recanalization & stenting, CRISPIN stenting on 10/23/13 for aorto-occlusive critical limb ischemia - S/p 11/12-11/19/13 [facility] Vascular Surgery for aortoiliac thrombosis (BLE [...] of this encounter (statuses as of 02/24/2022) [facility]2020 History of Past illness Narrative* Problem Noted [...] Neurotoin BID at home Patient started on [place] postoperatively, pain controlled at time of discharge. Ischemia of extremity 10/14/2013 02/10/2014 Overview: - admitted to [facility] vascular surgery twice in October 2013, s/p left femoral endarterectomy with patch, US guided access RCFA, L profundaplasty, RUFUS recanalization & stenting, CRISPIN stenting on 10/23/13 for aorto-occlusive critical limb ischemia - S/p 11/12-11/19/13 [facility] Vascular Surgery for aortoiliac thrombosis (BLE [...] of this encounter (statuses as of 02/24/2022) [facility]2020 History of Past illness Narrative* Problem Noted [...] Neurotoin BID at home Patient started on [place] postoperatively, pain controlled at time of discharge. Ischemia of extremity 10/14/2013 02/10/2014 Overview: - admitted to [facility] vascular surgery twice in October 2013, s/p left femoral endarterectomy with patch, US guided access RCFA, L profundaplasty, RUFUS recanalization & stenting, CRISPIN stenting on 10/23/13 for aorto-occlusive critical limb ischemia - S/p 11/12-11/19/13 [facility] Vascular Surgery for aortoiliac thrombosis (BLE [...] of this encounter (statuses as of 03/02/2022) [facility] History of Past illness Narrative* Problem Noted [...] Neurotoin BID at home Patient started on [place] postoperatively, pain controlled at time of discharge. Ischemia of extremity 10/14/2013 02/10/2014 Overview: - admitted to [facility] vascular surgery twice in October 2013, s/p left femoral endarterectomy with patch, US guided access RCFA, L profundaplasty, RUFUS recanalization & stenting, CRISPIN stenting on 10/23/13 for aorto-occlusive critical limb ischemia - S/p 11/12-11/19/13 [facility] Vascular Surgery for aortoiliac thrombosis (BLE [...] of this encounter (statuses as of 03/10/2022) [facility] History of Past illness Narrative* Problem Noted [...] Neurotoin BID at home Patient started on [place] postoperatively, pain controlled at time of discharge. Ischemia of extremity 10/14/2013 02/10/2014 Overview: - admitted to [facility] vascular surgery twice in October 2013, s/p left femoral endarterectomy with patch, US guided access RCFA, L profundaplasty, URFUS recanalization & stenting, CRISPIN stenting on 10/23/13 for aorto-occlusive critical limb ischemia - S/p 11/12-11/19/13 [facility] Vascular Surgery for aortoiliac thrombosis (BLE [...] of this encounter (statuses as of 03/10/2022) [facility] History of Past illness Narrative* Problem Noted [...] Neurotoin BID at home Patient started on [place] postoperatively, pain controlled at time of discharge. Ischemia of extremity 10/14/2013 02/10/2014 Overview: - admitted to [facility] vascular surgery twice in October 2013, s/p left femoral endarterectomy with patch, US guided access RCFA, L profundaplasty, RUFUS recanalization & stenting, CRISPIN stenting on 10/23/13 for aorto-occlusive critical limb ischemia - S/p 11/12-11/19/13 [facility] Vascular Surgery for aortoiliac thrombosis (BLE [...] of this encounter (statuses as of 03/11/2022) [facility]2020 History of Past illness Narrative* Problem Noted [...] Neurotoin BID at home Patient started on [place] postoperatively, pain controlled at time of discharge. Ischemia of extremity 10/14/2013 02/10/2014 Overview: - admitted to [facility] vascular surgery twice in October 2013, [...] of this encounter (statuses as of 03/11/2022) [facility] History of Past illness Narrative* Problem Noted [...] Neurotoin BID at home Patient started on [place] postoperatively, pain controlled at time of discharge. Ischemia of extremity 10/14/2013 02/10/2014 Overview: - admitted to [facility] vascular surgery twice in October 2013, [...] of this encounter (statuses as of 03/18/2022) [facility] History of Past illness Narrative* Problem Noted [...] Neurotoin BID at home Patient started on [place] postoperatively, pain controlled at time of discharge. Ischemia of extremity 10/14/2013 02/10/2014 Overview: - admitted to [facility] vascular surgery twice in October 2013, [...] of this encounter (statuses as of 03/24/2022) [facility] History of Past illness Narrative* Problem Noted [...] Neurotoin BID at home Patient started on [place] postoperatively, pain controlled at time of discharge. Ischemia of extremity 10/14/2013 02/10/2014 Overview: - admitted to [facility] vascular surgery twice in October 2013, [...] of this encounter (statuses as of 04/01/2022) [facility] History of Past illness Narrative* Problem Noted [...] Neurotoin BID at home Patient started on [place] postoperatively, pain controlled at time of discharge. Ischemia of extremity 10/14/2013 02/10/2014 Overview: - admitted to [facility] vascular surgery twice in October 2013, s/p left femoral endarterectomy with patch, US guided access RCFA, L profundaplasty, RUFUS recanalization & stenting, CRISPIN stenting on 10/23/13 for aorto-occlusive critical limb ischemia - S/p 11/12-11/19/13 [facility] Vascular Surgery for aortoiliac thrombosis (BLE [...] of this encounter (statuses as of 06/19/2022) [facility] History of Past illness Narrative* Problem Noted [...] Neurotoin BID at home Patient started on [place] postoperatively, pain controlled at time of discharge. Ischemia of extremity 10/14/2013 02/10/2014 Overview: - admitted to [facility] vascular surgery twice in October 2013, s/p left femoral endarterectomy with patch, US guided access RCFA, L profundaplasty, RUFUS recanalization & stenting, CRISPIN stenting on 10/23/13 for aorto-occlusive critical limb ischemia - S/p 11/12-11/19/13 [facility] Vascular Surgery for aortoiliac thrombosis (BLE [...] of this encounter (statuses as of 08/02/2022) [facility] History of Past illness Narrative* Problem Noted [...] for aorto-occlusive critical limb ischemia, CAD previous MS, DM, HTN, DLD, COPD, UC/IBD on sulfasalazine [...] Neurotoin BID at home Patient started on [place] postoperatively, pain controlled at time of discharge. Urinary retention 10/25/2013 08/18/2022 Overview: Home med: tamsulosin Plan: -Resume Tamsulosin DISPOSITION AND FOLLOW-UP 10/25/20132022 Overview: CM following for d/c needs. PT/OT to evaluate-->recommending home PT 07/08/2014 Discharge with home care today Ischemia of extremity 10/14/2013 02/10/2014 Overview: - admitted to [facility] vascular surgery twice in October 2013, [...] of this encounter (statuses as of 08/25/2022) [facility] History of Past illness Narrative* Problem Noted [...] for aorto-occlusive critical limb ischemia, CAD previous MS, DM, HTN, DLD, COPD, UC/IBD on sulfasalazine [...] Neurotoin BID at home Patient started on [place] postoperatively, pain controlled at time of discharge. Urinary retention 10/25/2013 08/18/2022 Overview: Home med: tamsulosin Plan: -Resume Tamsulosin DISPOSITION AND FOLLOW-UP 10/25/20132022 Overview: CM following for d/c needs. PT/OT to evaluate-->recommending home PT 07/08/2014 Discharge with home care today Ischemia of extremity 10/14/2013 02/10/2014 Overview: - admitted to [facility] vascular surgery twice in October 2013, [...] of this encounter (statuses as of 08/27/2022) [facility] History of Past illness Narrative* Problem Noted [...] for aorto-occlusive critical limb ischemia, CAD previous MS, DM, HTN, DLD, COPD, UC/IBD on sulfasalazine [...] Neurotoin BID at home Patient started on [place] postoperatively, pain controlled at time of discharge. Urinary retention 10/25/2013 08/18/2022 Overview: Home med: tamsulosin Plan: -Resume Tamsulosin DISPOSITION AND FOLLOW-UP 10/25/20132022 Overview: CM following for d/c needs. PT/OT to evaluate-->recommending home PT 07/08/2014 Discharge with home care today Ischemia of extremity 10/14/2013 02/10/2014 Overview: - admitted to [facility] vascular surgery twice in October 2013, s/p left femoral endarterectomy with patch, US guided access RCFA, L profundaplasty, RUFUS recanalization & stenting, CRISPIN stenting on 10/23/13 for aorto-occlusive critical limb ischemia - S/p 11/12-11/19/13 [facility] Vascular Surgery for aortoiliac thrombosis (BLE [...] of this encounter (statuses as of 08/27/2022) [facility] History of Past illness Narrative* Problem Noted [...] for aorto-occlusive critical limb ischemia, CAD previous MS, DM, HTN, DLD, COPD, UC/IBD on sulfasalazine [...] Neurotoin BID at home Patient started on [place] postoperatively, pain controlled at time of discharge. Urinary retention 10/25/2013 08/18/2022 Overview: Home med: tamsulosin Plan: -Resume Tamsulosin DISPOSITION AND FOLLOW-UP 10/25/20132022 Overview: CM following for d/c needs. PT/OT to evaluate-->recommending home PT 07/08/2014 Discharge with home care today Ischemia of extremity 10/14/2013 02/10/2014 Overview: - admitted to [facility] vascular surgery twice in October 2013, s/p left femoral endarterectomy with patch, US guided access RCFA, L profundaplasty, RUFUS recanalization & stenting, CRISPIN stenting on 10/23/13 for aorto-occlusive critical limb ischemia - S/p 11/12-11/19/13 [facility] Vascular Surgery for aortoiliac thrombosis (BLE [...] of this encounter (statuses as of 08/29/2022) [facility] History of Past illness Narrative* Problem Noted [...] for aorto-occlusive critical limb ischemia, CAD previous MS, DM, HTN, DLD, COPD, UC/IBD on sulfasalazine [...] Neurotoin BID at home Patient started on [place] postoperatively, pain controlled at time of discharge. Urinary retention 10/25/2013 08/18/2022 Overview: Home med: tamsulosin Plan: -Resume Tamsulosin DISPOSITION AND FOLLOW-UP 10/25/20132022 Overview: CM following for d/c needs. PT/OT to evaluate-->recommending home PT 07/08/2014 Discharge with home care today Ischemia of extremity 10/14/2013 02/10/2014 Overview: - admitted to [facility] vascular surgery twice in October 2013, s/p left femoral endarterectomy with patch, US guided access RCFA, L profundaplasty, RUFUS recanalization & stenting, CRISPIN stenting on 10/23/13 for aorto-occlusive critical limb ischemia - S/p 11/12-11/19/13 [facility] Vascular Surgery for aortoiliac thrombosis (BLE [...] of this encounter (statuses as of 09/02/2022) [facility]2020 History of Past illness Narrative* Problem Noted [...] for aorto-occlusive critical limb ischemia, CAD previous MS, DM, HTN, DLD, COPD, UC/IBD on sulfasalazine [...] Neurotoin BID at home Patient started on [place] postoperatively, pain controlled at time of discharge. Urinary retention 10/25/2013 08/18/2022 Overview: Home med: tamsulosin Plan: -Resume Tamsulosin DISPOSITION AND FOLLOW-UP 10/25/20132022 Overview: CM following for d/c needs. PT/OT to evaluate-->recommending home PT 07/08/2014 Discharge with home care today Ischemia of extremity 10/14/2013 02/10/2014 Overview: - admitted to [facility] vascular surgery twice in October 2013, s/p left femoral endarterectomy with patch, US guided access RCFA, L profundaplasty, RUFUS recanalization & stenting, CRISPIN stenting on 10/23/13 for aorto-occlusive critical limb ischemia - S/p 11/12-11/19/13 [facility] Vascular Surgery for aortoiliac thrombosis (BLE [...] of this encounter (statuses as of 09/07/2022) [facility] History of Past illness Narrative* Problem Noted [...] for aorto-occlusive critical limb ischemia, CAD previous MS, DM, HTN, DLD, COPD, UC/IBD on sulfasalazine [...] Neurotoin BID at home Patient started on [place] postoperatively, pain controlled at time of discharge. Urinary retention 10/25/2013 08/18/2022 Overview: Home med: tamsulosin Plan: -Resume Tamsulosin DISPOSITION AND FOLLOW-UP 10/25/20132022 Overview: CM following for d/c needs. PT/OT to evaluate-->recommending home PT 07/08/2014 Discharge with home care today Ischemia of extremity 10/14/2013 02/10/2014 Overview: - admitted to [facility] vascular surgery twice in October 2013, s/p left femoral endarterectomy with patch, US guided access RCFA, L profundaplasty, RUFUS recanalization & stenting, CRISPIN stenting on 10/23/13 for aorto-occlusive critical limb ischemia - S/p 11/12-11/19/13 [facility] Vascular Surgery for aortoiliac thrombosis (BLE [...] of this encounter (statuses as of 10/01/2022) [facility] History of Past illness Narrative* Problem Noted [...] for aorto-occlusive critical limb ischemia, CAD previous MS, DM, HTN, DLD, COPD, UC/IBD on sulfasalazine [...] Neurotoin BID at home Patient started on [place] postoperatively, pain controlled at time of discharge. [...] aorto-occlusive critical limb ischemia - S/p 11/12-11/19/13 [facility] Vascular Surgery for aortoiliac thrombosis (BLE [...] of this encounter (statuses as of 12/27/2022) [facility]2020 History of Past illness Narrative* Problem Noted [...] for aorto-occlusive critical limb ischemia, CAD previous MS, DM, HTN, DLD, COPD, UC/IBD on sulfasalazine [...] Neurotoin BID at home Patient started on [place] postoperatively, pain controlled at time of discharge. Urinary retention 10/25/2013 08/18/2022 Overview: Home med: tamsulosin Plan: -Resume Tamsulosin DISPOSITION AND FOLLOW-UP 10/25/2013 Overview: CM following for d/c needs. PT/OT to evaluate-->recommending home PT 07/08/2014 Discharge with home care today Ischemia of extremity 10/14/20132013 Overview: - admitted to [facility] vascular surgery twice in October 2013, [...] of this encounter (statuses as of 12/27/2022) [facility]2020 History of Past illness Narrative* Problem Noted [...] for aorto-occlusive critical limb ischemia, CAD previous MS, DM, HTN, DLD, COPD, UC/IBD on sulfasalazine [...] Neurotoin BID at home Patient started on [place] postoperatively, pain controlled at time of discharge. Urinary retention 10/25/2013 08/18/2022 Overview: Home med: tamsulosin Plan: -Resume Tamsulosin DISPOSITION AND FOLLOW-UP 10/25/2013 Overview: CM following for d/c needs. PT/OT to evaluate-->recommending home PT 07/08/2014 Discharge with home care today Ischemia of extremity 10/14/20132013 Overview: - admitted to [facility] vascular surgery twice in October 2013, [...] of this encounter (statuses as of 01/28/2023) [facility]2020 History of Past illness Narrative* Problem Noted [...] for aorto-occlusive critical limb ischemia, CAD previous MS, DM, HTN, DLD, COPD, UC/IBD on sulfasalazine [...] Neurotoin BID at home Patient started on [place] postoperatively, pain controlled at time of discharge. Urinary retention 10/25/2013 08/18/2022 Overview: Home med: tamsulosin Plan: -Resume Tamsulosin DISPOSITION AND FOLLOW-UP 10/25/2013 Overview: CM following for d/c needs. PT/OT to evaluate-->recommending home PT 07/08/2014 Discharge with home care today Ischemia of extremity 10/14/20132013 Overview: - admitted to [facility] vascular surgery twice in October 2013, [...] of this encounter (statuses as of 03/01/2023) [facility]2020 History of Past illness Narrative* Problem Noted [...] hematocrit once daily -touch base with Dr. Sehr regarding preference for anticoagulation given GI bleed [...] for aorto-occlusive critical limb ischemia, CAD previous MS, DM, HTN, DLD, COPD, UC/IBD on sulfasalazine [...] Neurotoin BID at home Patient started on [place] postoperatively, pain controlled at time of discharge. [...] of this encounter (statuses as of 03/31/2023) [facility]2020 History of Past illness Narrative* Problem Noted [...] for aorto-occlusive critical limb ischemia, CAD previous MS, DM, HTN, DLD, COPD, UC/IBD on sulfasalazine [...] Neurotoin BID at home Patient started on [place] postoperatively, pain controlled at time of discharge. Urinary retention 10/25/2013 08/18/2022 Overview: Home med: tamsulosin Plan: -Resume Tamsulosin DISPOSITION AND FOLLOW-UP 10/25/2013 Overview: CM following for d/c needs. PT/OT to evaluate-->recommending home PT 07/08/2014 Discharge with home care today Ischemia of extremity 10/14/20132013 Overview: - admitted to [facility] vascular surgery twice in October 2013, [...] of this encounter (statuses as of 05/22/2023) [facility]2020 History of Past illness Narrative* Problem Noted [...] for aorto-occlusive critical limb ischemia, CAD previous MS, DM, HTN, DLD, COPD, UC/IBD on sulfasalazine [...] Neurotoin BID at home Patient started on [place] postoperatively, pain controlled at time of discharge. Urinary retention 10/25/2013 08/18/2022 Overview: Home med: tamsulosin Plan: -Resume Tamsulosin DISPOSITION AND FOLLOW-UP 10/25/2013 03 /07/2022 Overview: CM following for d/c needs. PT/OT to evaluate-->recommending home PT 07/08/2014 Discharge with home care today Ischemia of extremity 10/14/20132013 Overview: - admitted to [facility] vascular surgery twice in October 2013, [...] of this encounter (statuses as of 05/31/2023) [facility]2020 History of Past illness Narrative* Problem Noted [...] for aorto-occlusive critical limb ischemia, CAD previous MS, DM, HTN, DLD, COPD, UC/IBD on sulfasalazine [...] Neurotoin BID at home Patient started on [place] postoperatively, pain controlled at time of discharge. Urinary retention 10/25/2013 08/18/2022 Overview: Home med: tamsulosin Plan: -Resume Tamsulosin DISPOSITION AND FOLLOW-UP 10/25/2013 Overview: CM following for d/c needs. PT/OT to evaluate-->recommending home PT 07/08/2014 Discharge with home care today Ischemia of extremity 10/14/20132013 Overview: - admitted to [facility] vascular surgery twice in October 2013, s/p left femoral endarterectomy with patch, US guided access RCFA, L profundaplasty, RUFUS recanalization & stenting, CRISPIN stenting on 10/23/13 for aorto-occlusive critical limb ischemia - S/p 11/12-11/19/13 [facility] Vascular Surgery for aortoiliac thrombosis (BLE [...] of this encounter (statuses as of 05/31/2023) [facility]2020 Evaluation note* Diagnosis s/p left femoral endarterectomy/aortoiliac stenting 10/08/2019- Primary Peripheral vascular disease, unspecified PVD (peripheral vascular disease) (HCC) Peripheral vascular disease, unspecified Smoker Tobacco use disorder documented in this encounter [facility] Author Miquel Santiago [facility] April 04, 2023 10:18am Note Date/Time April 04, 2023 1 0:18am [facility] Medical Records Department [address] [place] [address] Counseling Note - Pharmacy 04/04/23 1017 MR#: [id number] Acct: [id number] Name: PEDRO PABLO SIERRA Rep #:[id number] : 1950 72 From: Miquel Santiago PCP: Dr. Daija Morton MD Status:ADM I N Y Location: [place] [address] Pharmacy [facility] Service has performed discharge medication reconciliation [...] Signature (if applicable): Date CC: ~ Signed [facility] Work Phone: Discharge summary Author Frankie Galindo [facility] April 04, 2023 10:03am Note Date/Time April 04, 2023 1 0:03am [facility] Medical Records Department [address] [place] [id number] Discharge Summary 04/04/23 1002 MR#: [id number] Acct: [id number] Name: PEDRO PABLO SIERRA Shannan Rep #:[id number] : 1950 72 From: Frankie Galindo MD PCP: Dr. Daija Morton MD Status:ADM I N Location: [place] [address] Providers Date of Admission: 03/30/23 Primary Care [...] Requested for PT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 ([facility]) Chronic airway obstruction, not elsewhere classified Melena Blood in stool Depression Depressive disorder, not elsewhere classified COPD (chronic obstructive pulmonary disease) ([facility])- Primary Chronic airway obstruction, not elsewhere classified [...] Coronary atherosclerosis of unspecified type of vessel, ho-chunk or graft PVD (peripheral vascular disease) Peripheral [...] unspecified vessel or lesion type, unspecified whether ho-chunk or transplanted heart Mixed hyperlipidemia Essential hypertension [...] Educational circumstance Wheezing documented in this [facility] Diagnosis COPD (chronic obstructive pulmonary disease) [...] disease, unspecified COPD (chronic obstructive pulmonary disease) ([facility]) Chronic airway obstruction, not elsewhere classified Anticoagulation [...] in stool COPD (chronic obstructive pulmonary disease) ([facility]) Chronic airway obstruction, not elsewhere classified Dark urine Other nonspecific finding on examination of urine Hospital discharge follow-up- Primary Other follow-up examination Hypertension Unspecified essential hypertension Hematoma, postoperative Hematoma complicating a procedure s/p left femoral endarterectomy/aortoiliac stenting 10/2013 Peripheral vascular disease, unspecified COPD (chronic obstructive pulmonary disease) ([facility]) Chronic airway obstruction, not elsewhere classified Melena Blood in stool Depression Depressive disorder, not elsewhere classified COPD (chronic obstructive pulmonary disease) ([facility])- Primary Chronic airway obstruction, not elsewhere classified [...] Coronary atherosclerosis of unspecified type of vessel, ho-chunk or graft PVD (peripheral vascular disease) Peripheral [...] unspecified vessel or lesion type, unspecified whether ho-chunk or transplanted heart Mixed hyperlipidemia Essential hypertension [...] on supplemental oxygen documented in this [facility] Author Fran Cartwright [facility] March 30, 2023 8:08pm Note Date/Time March 30, 2023 7 :32pm [facility] Medical Records Department [address] [place] [id number] H&P Exam - Hospitalist 03/30/231931 MR#: [id number] Acct: [id number] Name: PEDRO PABLO SIERRA Rep #:[id number] : 1950 72 From: Fran Cartwright MD PCP: Dr. Daija Morton MD Status:ADM I N Location: [facility] [id number] HPI - General General Date of Admission: [...] patient has a burning sensation with urination. [facility] Medical History (Updated 03/30/23 @ 20:04 by [...] 79.2 H, Lymph % (Auto) 9.3 L, Will % (Auto) 10.5 H, Eos % (Auto) [...] Sl. Cloudy, Urine pH 6.0, Ur Specific Zullinger 1.020, Urine Protein 100 H, Urine Glucose [...] 17:15 EDT Reading Location ID and State: [id number] / [employer] , Service support , Thoracic Spine CT 03/30/23 15:46 IMPRESSION: Diffuse osteopenia/osteoporosis with minimal compression fracture of T11, exact age indeterminate. No retropulsion or extension to the pedicles visualized. Underlying degenerative disease. No subluxation. Electronically Signed: Irish Velásquez MD at 17:12 EDT Reading Location ID and State: [id number] / [employer] , Service support , Chest X-Ray 03/30/23 16:30 IMPRESSION: No acute cardiac pulmonary disease. Electronically Signed: Irish Velásquez MD at 17:15 EDT Reading Location ID and State: [id number] / [employer] , Service support , Assessment & Plan [...] documentation, 70minutes. Charges/Coding Visit Charges Inpatient E&M: 90376 Init Hosp L3 03/30/232007 <Electronically signed by Fran Cartwright MD> Cosigner Signature (if applicable): CC: Dr. Daija Morton MD; Dr. Fran Cartwright MD~ Signed [facility] Work Phone: History and physical note Author Андрей Cooley [facility] July 24, 2023 9:10pm Note Date/Time July 24, 2023 9 :10pm [facility] Medical Records Department [address] [place] [address] History & Physical Exam 07/24/232103 MR#: [id number] Acct: [id number] Name: PEDRO PABLO SIERRA Rep #:[id number] : 1950 73 From: Андрей Cooley MD [...] past medical history of recent discharge from detention for debility and weakness. Patient does also have a history of long-term smoking. Patient denies any chest pain, shortness of breath fevers or chills at present time. He will be admitted for pain control and case management to arrange for residential care facility. [facility] Medical History Asthma Atrial fibrillation Chronic pain [...] 74.0 H, Lymph % (Auto) 16.0 L, Will % (Auto) 7.3, Eos % (Auto) 1.1, [...] 17:27 EST Reading Location ID and State: [address] [place] [address] Tel , Service support , Assessment & [...] on anticoagulation Charges/Coding Visit Charges Inpatient E&M: 44453 Init Hosp L2 07/24/232109 <Electronically signed by Андрей Cooley MD> Cosigner Signature (if applicable): CC: Dr. Daija Morton MD; Dr. Андрей Cooley MD~ Signed [facility] Work Phone: History and physical note Author Lisha Talamantes [facility] Note Date/Time August 25, 2024 7:00 pm [facility] Medical Records Department [address] [place] [address] H&P Exam - Hospitalist 08/25/24 1820 MR#: [id number] Acct: [id number] Name: PEDRO PABLO SIERRA Rep #:[id number] : 1950 74 From: Lisha Talamantes DO PCP: Dr. Daija Morton MD Status:ADM I NO [facility] [id number] HPI - General General Date of Admission: 08/25/24 Date of Service: 08/25/24 Chief Complaint: Diarrhea/generalized weakness HPI Narrative PEDRO PABLO SIERRA, is a 74 M who presented to the emergency department [facility] on 08/25/2024 with a chief complaint of generalized weakness and diarrhea. Patient had recently been at [facility] and was discharged about 5 [...] Chest x-ray is unremarkable for acute findings. [facility] Medical History Compression fx, lumbar spine [...] 78.4 H, Lymph % (Auto) 10.3 L, Will % (Auto) 9.9, Eos % (Auto) 0.3, [...] the current livingenvironment -Was recently discharged from [facility] however patient wasadamant that he [...] need clarified Charges/Coding Visit Charges Inpatient E&M: 90029 Init Hosp L2 08/25/24 1900 <Electronically signed by Lisha Talamantes DO> Cosigner Signature (if applicable): CC: Dr. Diaja Morton MD; Dr. Lisha Talamantes DO~ Signed [facility] Work Phone: [facility] Work Phone: [phone] Work Phone: [phone] Dis[facility] instructions[facility] Work Phone: [phone] Work Phone: [phone] instructions[facility] Work Phone: [phone] Work Phone: [phone] Discharge instructions Additional Instructions Ice to your rib cage. Support your sore ribs with a pillow. Your chest x-ray did not show any broken ribs sometimes however there are small cracks in the ribs we cannot see on the x-ray. [place] for more severe pain. Otherwise use Tylenol. If you are using the pain medication [place] then do not use Tylenol with it. Follow-up with your doctor as needed. Keep the wounds on your forearms clean. Clean daily with soap and water. Patient apply antibiotic ointment. Watch for any signs of infection if seen follow-up.[facility] Work Phone: Hospital Discharge instructions Additional Instructions Please use the walker and follow-up with your primary care doctor.[facility] Work Phone: Progress note No data available for this section [facility] Reason for referral (narrative)* Outpatient Procedure (Routine) - Closed Specialty Diagnoses / Procedures Referred By Contac t [facility] Diagnoses COPD with chronic bronchitis (HCC) Procedures OXIMETRY WITH AMBULATION NONINVASIVE EAR/PULSE OXIMETRY MULTIPLE DETER Emilie Jauregui PA-C [address] [address] Referral ID Status Reason Start Date Expiration Date V isits Requested Visits Authorized [id number] Closed Auto-Generate d Referral 11/05/2021 06/18/2022 1 1 * Outpatient Procedure (Routine) - Closed Specialty Diagnoses / Procedures Referred By Contac t Ref[facility] Diagnoses COPD with chronic bronchitis (HCC) Procedures LUNG DIFFUSION CAPACITY (DLCO) DIFFUSING CAPACITY Emilie Jauregui PA-C [address] [employer] [address] [place] [address] [address] Referral ID Status Reason Start Date Expiration Date V isits Requested Visits Authorized [id number] Closed Auto-Generate d Referral 11/05/2021 06/18/2022 1 1 * Outpatient Procedure (Routine) - Closed Specialty Diagnoses / Procedures Referred By Contac t Ref[facility] Diagnoses COPD with chronic bronchitis (HCC) Procedures SPIROMETRY BASELINE ONLY SPMTRY W/VC EXPIRATORY BRIAN W/WO MXML VOL VNTJ Emilie Jauregui PA-C [address] [place] [address] [address] Referral ID Status Reason Start Date Expiration Date V isits Requested Visits Authorized [id number] Closed Auto-Generate d Referral 11/05/2021 06/18/2022 1 1 [facility] for referral (narrative)* Outpatient Procedure (Routine) - Pending Review Specialty Diagnoses / Procedures Referred By Contac t Referred To Contact [facility] [place] Diagnoses Essential hypertension Chest pain, unspecified type Procedures ECG COMPLETE ECG ROUTINE ECG W/LEAST 12 LDS W/I&R Anjel Braga APRN.CNP [address] [place] [address] [facility] [place] [address] [place] [id number] Referral ID Status Reason Start Date Expiration Date Visits Requested Visits Authorized [id number] Pending Review Auto-Generat ed Referral 01/28/2022 01/28/2023 1 1 [facility] for referral (narrative)* Outpatient Procedure (Routine) - Authorized Specialty Diagnoses / Procedures Referred By Contac t Referred To Contact [facility] [place] [facility] Diagnoses PVD (peripheral vascular disease) (HCC) Procedures [facility] P[facility] NON-INVASIVE PHYSIOLOGIC STUDY EXTREMITY [address] [place] [address] [place] [address] [facility] [address] [address] Referral ID Status Reason Start Date Expiration Date Visits Requested Visits Authorized [id number] Authorized Auto-Generat ed Referral 01/31/2022 01/31/2023 1 1 [facility] for referral (narrative)* Outpatient Procedure (Routine) - Authorized Specialty Diagnoses / Procedures Referred By Contac t Referred To Contact [facility] [place] Diagnoses Peripheral arterial disease (HCC) PVD (peripheral vascular disease) (HCC) Procedures PVR [facility] NON-INVASIVE PHYSIOLOGIC STUDY EXTREMITY [address] [place] [address] [place] [address] [facility] [place] [address] [place] [address] Referral ID Status Reason Start Date Expiration Date Visits Requested Visits Authorized [id number] Authorized Auto-Generat ed Referral 12/26/2022 12/26/2023 1 1 [facility] for referral (narrative)* Outpatient Procedure (Routine) - Authorized Specialty Diagnoses / Procedures Referred By Contac t Referred To Contact [facility] [place] Diagnoses Peripheral arterial disease (HCC) Procedures PVR [facility] NON-INVASIVE PHYSIOLOGIC STUDY EXTREMITY [address] [place] [address] [place] [address] [address] Referral ID Status Reason Start Date Expiration Date Visits Requested Visits Authorized [id number] Authorized Auto-Generat ed Referral 01/02/2024 01/01/2025 1 1 [facility] for referral (narrative)No reason for referral information availableWCommunity [facility] Hospital Work Phone: Summary Purpose Family History [...] Documents on File Type Date Recorded Patient Special Events Director Expl anation Advance Directive(s) 10/24/2019 3:38 PM [...] Documents on File Type Date Recorded Patient Special Events Director Expl anation Advance Directive(s) 08/29/2021 6:53 PM Advance Directive(s) 08/22/2021 7:53 PM Advance Directive(s) 04/10/2020 4:06 PM Advance Directive(s) 12/17/2019 10:49 AM Advance Directive(s) 10/24/2019 3:38 PM Advance Directive(s) 10/17/2019 9:43 AM Advance Directive(s) 10/08/2019 7:18 AM Advance Directive(s) 09/04/2019 1:38 PM Advance Directive(s) 02/07/2016 12:11 AM Advance Directive Response Recorded Date/ Time Name of Medical Power of Tube Coverer eloina stephens e- ex August 12, 2021 1:39am Name of Medical Power of Tube Coverer Joseph Burrell August 18, 2021 11:56pm Advance Directives Yes March 22, 2016 4:03pm Living Will No September 17, 2021 5:48pm Power of Tube Coverer Yes September 17 5:48pm Advance Directive Response Recorded Date/ Time Name of Medical Power of Tube Coverer eloina stephens e- ex August 12, 2021 1:39am Name of Medical Power of Tube Coverer Joseph Burrell August 18, 2021 11:56pm Name of Medical Power of Tube Coverer joseph burrell September 17, 2021 5:48pm Advance Directives Yes March 22, 2016 4:03pm Living Will No October 08, 2021 2:20pm Power of Tube Coverer No October 08 2:20pm Documents on File Type Date Recorded Patient Special Events Director Expl anation Advance Directive(s) 08/29/2021 6:53 PM [...] Date/ Time Name of Medical Power of Tube Coverer eloina stephens e- ex August 12, 2021 1:39am Name of Medical Power of Tube Coverer Joseph Burrell August 18, 2021 11:56pm Name of Medical Power of Tube Coverer joseph burrell September 17, 2021 5:48pm Advance Directives Yes March 22, 2016 4:03pm Living Will Yes November 25, 2021 5 :33pm Power of Tube Coverer Yes November 25, 2021 5:33pm Advance Directive Response Recorded Date/ Time Name of Medical Power of Tube Coverer eloina stephens e- ex August 12, 2021 1:39am Name of Medical Power of Tube Coverer Joseph Burrell August 18, 2021 11:56pm Name of Medical Power of Tube Coverer joseph burrell September 17, 2021 5:48pm Advance Directives Yes March 22, 2016 4:03pm Living Will Yes November 25, 2021 1 1:06pm Power of Tube Coverer No November 25, 2021 11:06pm Advance Directive Response Recorded Date/ Time Name of Medical Power of Tube Coverer Joseph Burrell August 18, 2021 11:56pm Name of Medical Power of Tube Coverer joseph burrell September 17, 2021 5:48pm Name of Medical Power of Tube Coverer MICHELLE RICHMOND November 25, 2021 5:33pm Advance Directives Yes March 22, 2016 4:03pm Living Will Yes November 25, 2021 1 1:06pm Power of Tube Coverer No November 25, 2021 11:06pm Advance Directive Response Recorded Date/ Time Name of Medical Power of Tube Coverer joseph burrell September 17, 2021 5:48pm Name of Medical Power of Tube Coverer MICHELLEADRIANA REEDON November 25, 2021 5:33pm Advance Directives Yes March 22, 2016 4:03pm Living Will Yes November 25, 2021 1 1:06pm Power of Tube Coverer No November 25, 2021 11:06pm Advance Directive Response Recorded Date/ Time Name of Medical Power of Tube Coverer MICHELLE RICHMOND November 25, 2021 5:33pm Advance Directives Yes March 22, 2016 4:03pm Living Will Yes November 25, 2021 1 1:06pm Power of Tube Coverer No November 25, 2021 11:06pm Advance Directive Response Recorded Date/ Time Name of Medical Power of Tube Coverer MICHELLE RICHMOND November 25, 2021 5:33pm Name of Medical Power of Tube Coverer recalled January 28, 2022 3:14pm Advance Directives Yes March 22, 2016 4:03pm Living Will Yes January 28 3:14pm Power of Tube Coverer Yes January 28 022 3:14pm Documents on File Type Date Recorded Patient Special Events Director Expl anation Advance Directive(s) 10/24/2019 3:38 PM Advance Directive Response Recorded Date/ Time Name of Medical Power of Tube Coverer MICHELLE RICHMOND November 25, 2021 5:33pm Name of Medical Power of Tube Coverer recalled January 28, 2022 3:14pm Advance Directives Yes March 22, 2016 4:03pm Living Will Yes March 02, 2022 3:17pm Power of Tube Coverer No February 3:17pm Advance Directive Response Recorded Date/ Time Name of Medical Power of Tube Coverer MICHELLE RICHMOND November 25, 2021 5:33pm Name of Medical Power of Tube Coverer recalled January 28, 2022 3:14pm Advance Directives Yes March 22, 2016 4:03pm Living Will No March 07, 2022 5:26pm Power of Tube Coverer No February 5:26pm Advance Directive Response Recorded Date/ Time Name of Medical Power of Tube Coverer MICHELLE RICHMOND November 25, 2021 5:33pm Name of Medical Power of Tube Coverer recalled January 28, 2022 3:14pm Advance Directives Yes March 22, 2016 4:03pm Living Will No March 08, 2022 8:17pm Power of Tube Coverer No February 8:17pm Advance Directive Response Recorded Date/ Time Advance Directives Yes March 22, 2016 3:03pm Living Will No March 08, 2022 7:17pm Power of Tube Coverer No February 7:17pm Advance Directive Response Recorded Date/ Time Advance Directives Yes March 22, 2016 4:03pm Living Will No October 21, 2022 6: 58pm Power of Tube Coverer No October 21, 2022 6:58pm Latest Code [...] Date/ Time Name of Medical Power of Tube Coverer JOSEPH Euceda December 31, 2022 3:19pm Advance Directives Yes March 22, 2016 4:03pm Living Will Yes December 31, 2022 3:19pm Power of Tube Coverer Yes December 31 3:19pm Advance Directive Response Recorded Date/ Time Name of Medical Power of Tube Coverer JOSEPH Euceda December 31, 2022 3:19pm Name of Medical Power of Tube Coverer Joseph February 17, 2023 11:06pm Advance Directives Yes March 22, 2016 4:03pm Living Will Yes February 17 11:06pm Power of Tube Coverer Yes February 17, 2023 11:06pm Advance Directive Response Recorded Date/ Time Name of Medical Power of Tube Coverer Joseph Burrell March 29, 2023 7:22pm Advance Directives Yes March 22, 2016 4:03pm Living Will No March 30 3:32pm Power of Tube Coverer No March 30, 2023 3:32pm Name of Medical Power of Tube Coverer JOSEPH Euceda December 31, 2022 3:19pm Name of Medical Power of Tube Coverer Joseph February 17, 2023 11:06pm Advance Directive Response Recorded Date/ Time Name of Medical Power of Tube Coverer Joseph Burrell March 29, 2023 7:22pm Advance Directives Yes March 22, 2016 4:03pm Living Will No March 30 9:04pm Power of Tube Coverer No March 30, 2023 9:04pm Name of Medical Power of Tube Coverer JOSEPH BURRELL- E X December 31, 2022 3:19pm Name of Medical Power of Tube Coverer Joseph February 17, 2023 11:06pm Advance Directive Response Recorded Date/ Time Name of Medical Power of Tube Coverer Joseph Burrell March 29, 2023 6:22pm Advance Directives Yes March 22, 2016 3:03pm Living Will No March 30 8:04pm Power of Tube Coverer No March 30, 2023 8:04pm Advance Directive Response Recorded Date/ Time Name of Medical Power of Tube Coverer Joseph Burrell March 29, 2023 6:22pm Name of Medical Power of Tube Coverer Joseph Burrell July 24, 2023 5:27pm Advance Directives Yes March 22, 2016 3:03pm Living Will Yes July 24 5:27pm Power of Tube Coverer Yes July 24, 2023 5:27pm Advance Directive Response Recorded Date/ Time Name of Medical Power of Tube Coverer Joseph Burrell July 24, 2023 9:55pm Advance Directives Yes March 22, 2016 3:03pm Living Will No July 30, 024 8:34pm Power of Tube Coverer No July 30, 2023 8:34pm Advance Directive Response Recorded Date/ Time Name of Medical Power of Tube Coverer Joseph Burrell July 24, 2023 9:55pm Name of Medical Power of Tube Coverer Nahed Roxy July 31, 2023 12:57am Advance Directives Yes March 22, 2016 3:03pm Living Will No July 31, 024 12:57am Power of Tube Coverer Yes July 31, 2023 12:57am Date Activated Date Inactivated Comments 08/23/2021 7:55 AM 09/13/2021 7:43 PM Question Answer Comments Full Code Order Discussed With: Patient Date Activated Date Inactivated Comments 10/01/2020 11:51 PM 08/21/2021 11:26 AM Advance Directive Response Recorded Date/ Time Name of Medical Power of Tube Coverer Joseph uBrrell March 29, 2023 6:22pm Advance Directives Yes March 22, 2016 3:03pm Living Will No March 30 8:04pm Power of Tube Coverer No March 30, 2023 8:04pm Name of Medical Power of Tube Coverer Joseph February 17, 2023 10:06pm Advance Directive Response Recorded Date/ Time Living Will No August 25, 2024 4:43pm Power of Tube Coverer No August 25 4:43pm Advance Directives Yes March 22, 2016 4:03pm Advance Directive Response Recorded Date/ Time Living Will No August 25, 2024 7:21pm Power of Tube Coverer No August 25 7:21pm Advance Directives Yes March 22, 2016 4:03pm Advance Directive Response Recorded Date/ Time Living Will No August 25, 2024 7:21pm Do you have a Healthcare Power of Tube Coverer? No August 25, 2024 7:21pm Advance Directives Yes March 22, 2016 4:03pm Hospital Course Note HNO ID: [id number] Author: Luis Girard Service: Vascular Surgery Author [...] Admitted for a planned redo of left INDUSTRIAL RELATIONS WORKER endarterectomy versus bypass, possible fem-fem and or fem-pop bypass, possible stent placement for reoccurrent left INDUSTRIAL RELATIONS WORKER disease, thrombosis of the left iliac stents and rest pain. Operations during Hospitalization: 10/08/2019-Left common femoral endarterectomy with bovine patch, redo.Thrombectomy of the occluded Left RADHA and EIA.Left common and external iliac stents (Cast x 2), (Gene (more content not included)... Note HNO ID: [id number] Author: Bing Oden (Pa) Service: Vascular Surgery Author Type: Physician Sprayer Hand Type: Discharge Summary Filed: 10/25/2019 4:58 PM Note Text: Attestation signed by Lesly Salvador at 10/30/2019 4:47 PM agree Department of Vascular Surgery Discharge Summary PATIENT NAME: Pedro Pablo iSerra ADMISSION DATE: 10/17/2019 DISCHARGE DATE: 10/25/2019 Attending Physician: Lesly Salvador Code Status: Not on file Primary Service: Vascular Surgery Admission Diagnosis: Left groin wound seroma and infection, status post revascularization of left leg. Discharge Diagnosis: Left groin wound seroma and infection, status post revascularization of left leg. Presumed [place] left iliac, profunda bypass infection. Reason for Hospitalization: pleasant 69-year-old gentleman, who has recently undergone com (more content not included)... Note HNO ID: [id number] Author: Lius Girard Service: Vascular Surgery Author Type: Nurse Practitioner Type: Discharge Summary Filed: 12/17/2019 5:52 PM Note Text: Attestation signed by Rob Stevens at 12/18/2019 8:07 AM [facility] STAFF PHYSICIAN NOTE OF PERSONAL INVOLVEMENT IN [...] 1700 12/17/2019 ADMISSION DATE: 12/17/2019 DISCHARGE DISPOSITION: [facility] Discharge Physical Exam: VITAL SIGNS: BP 154/ (more content not included)... Note HNO ID: [id number] Author: Nelson Schuster (Aa) Service: ? Author Type: Resident Inspector Type: Anesthesia Procedure Notes Filed: 10/08/2019 8:38 [...] (more content not included)... Note HNO ID: [id number] Author: Nelson Schuster (Aa) Service: ? Author Type: Resident Inspector Type: Anesthesia Procedure Notes Filed: 10/08/2019 8:38 [...] October 08, 2019 TIME: 8:36 AM CSN: [id number] Note HNO ID: [id number] Author: Nelson Schuster (Aa) Service: ? Author Type: Resident Inspector Type: Anesthesia Procedure Notes Filed: 10/08/2019 8:39 [...] (more content not included)... Note HNO ID: [id number] Author: ANA PAULA Sanchez (Aa) Service: ? Author Type: Resident Inspector Type: Anesthesia Procedure Notes Filed: 10/08/2019 9:16 [...] October 08, 2019 TIME: 9:15 AM CSN: [id number] Note HNO ID: [id number] Author: Bing lucas (Res) Stephanie Service: Vascular Surgery Author Type: Resident Type: Brief Op Note Filed: 10/08/2019 4:12 PM Note Text: BRIEF OPERATIVE / PROCEDURE NOTE LOG ID: [id number] SURGERY/PROCEDURE DATE: 10/08/2019 INCISION/PROCEDURE START TIME: 8:53 AM INCISION CLOSE/PROCEDURE END TIME: 4:06 PM SURGEON(S)/PROCEDURALIST(S) AND TIRE BUSTER(S): Surgeon(s) and Role: * Ryan May MD - Primary * Elly (Res) Stephanie - Resident - Assisting No Additional Staff SURGERY/PROCEDURE(S): Left common INDUSTRIAL RELATIONS WORKER endarterectomy with bovine path Left profundoplasty Left [...] (more content not included)... Note HNO ID: [id number] Author: Vasu Sequeira Service: ? Author Type: [...] (more content not included)... Note HNO ID: [id number] Author: Vasu Sequeira Service: ? Author Type: [...] October 10, 2019 TIME: 9:26 AM CSN: [id number] Note HNO ID: [id number] Author: Huong Gonzalez Service: ? Author Type: Nurse Agronomy Supervisor Type: Anesthesia Procedure Notes Filed: 10/10/2019 9:36 AM Note Text: ANESTHESIOLOGY PROCEDURE NOTE Airway General Information Procedure Start Time/Medication Administration: 10/10/2019 9:11 AM Patient location during procedure: OR Staffing Anesthesiologist: Joey Sequeira LAYOUT MAN: Gini Gonzalez Performed by: SERGEY Indications and [...] (more content not included)... Note HNO ID: [id number] Author: Bing lucas (Azalea) Stephanie Service: Vascular Surgery Author Type: Resident Type: Brief Op Note Filed: 10/10/2019 2:08 PM Note Text: BRIEF OPERATIVE / PROCEDURE NOTE LOG ID: [id number] Surgery/Procedure Date: 10/10/2019 Incision/Procedure Start Time: 9:52 AM Incision Close/Procedure End Time: 1:49 PM Surgeon(s)/Proceduralist(s) and Sprayer Hand(s): Surgeon(s) and Role: * Ryan May MD - Primary * Elly (Binu Brown - Resident - Assisting No Additional Staff Procedure(s): Washout of left groin Left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 rules restrict any use of the information to criminally investigate or prosecute any alcohol or drug abuse patient.[facility] DublinIn the event this information is protected by the Federal Confidentiality of Alcohol and Drug Abuse Patient Records regulations: The Federal rules restrict any use of the information to criminally investigate or prosecute any alcohol or drug abuse patient.[facility] DublinIn the event this information is protected by the Federal Confidentiality of Alcohol and Drug Abuse Patient Records regulations: The Federal rules restrict any use of the information to criminally investigate or prosecute any alcohol or drug abuse patient.[facility] DublinIn the event this information is protected by the Federal Confidentiality of Alcohol and Drug Abuse Patient Records regulations: The Federal rules restrict any use of the information to criminally investigate or prosecute any alcohol or drug abuse patient.[facility] DublinIn the event this information is protected by the Federal Confidentiality of Alcohol and Drug Abuse Patient Records regulations: The Federal rules restrict any use of the information to criminally investigate or prosecute any alcohol or drug abuse patient.[facility] DublinIn the event this information is protected by the Federal Confidentiality of Alcohol and Drug Abuse Patient Records regulations: The Federal rules restrict any use of the information to criminally investigate or prosecute any alcohol or drug abuse patient.[facility] DublinIn the event this information is protected by the Federal Confidentiality of Alcohol and Drug Abuse Patient Records regulations: The Federal rules restrict any use of the information to criminally investigate or prosecute any alcohol or drug abuse patient.[facility] DublinIn the event this information is protected by the Federal Confidentiality of Alcohol and Drug Abuse Patient Records regulations: The Federal rules restrict any use of the information to criminally investigate or prosecute any alcohol or drug abuse patient.[facility] DublinIn the event this information is protected by the Federal Confidentiality of Alcohol and Drug Abuse Patient Records regulations: The Federal rules restrict any use of the information to criminally investigate or prosecute any alcohol or drug abuse patient.[facility] DublinIn the event this information is protected by the Federal Confidentiality of Alcohol and Drug Abuse Patient Records regulations: The Federal rules restrict any use of the information to criminally investigate or prosecute any alcohol or drug abuse patient.[facility] DublinIn the event this information is protected by the Federal Confidentiality of Alcohol and Drug Abuse Patient Records regulations: The Federal rules restrict any use of the information to criminally investigate or prosecute any alcohol or drug abuse patient.[facility] DublinIn the event this information is protected by the Federal Confidentiality of Alcohol and Drug Abuse Patient Records regulations: The Federal rules restrict any use of the information to criminally investigate or prosecute any alcohol or drug abuse patient.[facility] DublinIn the event this information is protected by the Federal Confidentiality of Alcohol and Drug Abuse Patient Records regulations: The Federal rules restrict any use of the information to criminally investigate or prosecute any alcohol or drug abuse patient.[facility] DublinIn the event this information is protected by the Federal Confidentiality of Alcohol and Drug Abuse Patient Records regulations: The Federal rules restrict any use of the information to criminally investigate or prosecute any alcohol or drug abuse patient.[facility] DublinIn the event this information is protected by the Federal Confidentiality of Alcohol and Drug Abuse Patient Records regulations: The Federal rules restrict any use of the information to criminally investigate or prosecute any alcohol or drug abuse patient.[facility] DublinIn the event this information is protected by the Federal Confidentiality of Alcohol and Drug Abuse Patient Records regulations: The Federal rules restrict any use of the information to criminally investigate or prosecute any alcohol or drug abuse patient.[facility] DublinIn the event this information is protected by the Federal Confidentiality of Alcohol and Drug Abuse Patient Records regulations: The Federal rules restrict any use of the information to criminally investigate or prosecute any alcohol or drug abuse patient.[facility] DublinIn the event this information is protected by the Federal Confidentiality of Alcohol and Drug Abuse Patient Records regulations: The Federal rules restrict any use of the information to criminally investigate or prosecute any alcohol or drug abuse patient.[facility] DublinIn the event this information is protected by the Federal Confidentiality of Alcohol and Drug Abuse Patient Records regulations: The Federal rules restrict any use of the information to criminally investigate or prosecute any alcohol or drug abuse patient.[facility] DublinIn the event this information is protected by the Federal Confidentiality of Alcohol and Drug Abuse Patient Records regulations: The Federal rules restrict any use of the information to criminally investigate or prosecute any alcohol or drug abuse patient.[facility] DublinIn the event this information is protected by the Federal Confidentiality of Alcohol and Drug Abuse Patient Records regulations: The Federal rules restrict any use of the information to criminally investigate or prosecute any alcohol or drug abuse patient.[facility] DublinIn the event this information is protected by the Federal Confidentiality of Alcohol and Drug Abuse Patient Records regulations: The Federal rules restrict any use of the information to criminally investigate or prosecute any alcohol or drug abuse patient.[facility] DublinIn the event this information is protected by the Federal Confidentiality of Alcohol and Drug Abuse Patient Records regulations: The Federal rules restrict any use of the information to criminally investigate or prosecute any alcohol or drug abuse patient.[facility] DublinIn the event this information is protected by the Federal Confidentiality of Alcohol and Drug Abuse Patient Records regulations: The Federal rules restrict any use of the information to criminally investigate or prosecute any alcohol or drug abuse patient.[facility] DublinIn the event this information is protected by the Federal Confidentiality of Alcohol and Drug Abuse Patient Records regulations: The Federal rules restrict any use of the information to criminally investigate or prosecute any alcohol or drug abuse patient.[facility] DublinIn the event this information is protected by the Federal Confidentiality of Alcohol and Drug Abuse Patient Records regulations: The Federal rules restrict any use of the information to criminally investigate or prosecute any alcohol or drug abuse patient.[facility] DublinIn the event this information is protected by the Federal Confidentiality of Alcohol and Drug Abuse Patient Records regulations: The Federal rules restrict any use of the information to criminally investigate or prosecute any alcohol or drug abuse patient.[facility] DublinIn the event this information is protected by the Federal Confidentiality of Alcohol and Drug Abuse Patient Records regulations: The Federal rules restrict any use of the information to criminally investigate or prosecute any alcohol or drug abuse patient.[facility] DublinIn the event this information is protected by the Federal Confidentiality of Alcohol and Drug Abuse Patient Records regulations: The Federal rules restrict any use of the information to criminally investigate or prosecute any alcohol or drug abuse patient.[facility] DublinIn the event this information is protected by the Federal Confidentiality of Alcohol and Drug Abuse Patient Records regulations: The Federal rules restrict any use of the information to criminally investigate or prosecute any alcohol or drug abuse patient.[facility] DublinIn the event this information is protected by the Federal Confidentiality of Alcohol and Drug Abuse Patient Records regulations: The Federal rules restrict any use of the information to criminally investigate or prosecute any alcohol or drug abuse patient.[facility] DublinIn the event this information is protected by the Federal Confidentiality of Alcohol and Drug Abuse Patient Records regulations: The Federal rules restrict any use of the information to criminally investigate or prosecute any alcohol or drug abuse patient.[facility] DublinIn the event this information is protected by the Federal Confidentiality of Alcohol and Drug Abuse Patient Records regulations: The Federal rules restrict any use of the information to criminally investigate or prosecute any alcohol or drug abuse patient.[facility] DublinIn the event this information is protected by the Federal Confidentiality of Alcohol and Drug Abuse Patient Records regulations: The Federal rules restrict any use of the information to criminally investigate or prosecute any alcohol or drug abuse patient.[facility] DublinIn the event this information is protected by the Federal Confidentiality of Alcohol and Drug Abuse Patient Records regulations: The Federal rules restrict any use of the information to criminally investigate or prosecute any alcohol or drug abuse patient.[facility] DublinIn the event this information is protected by the Federal Confidentiality of Alcohol and Drug Abuse Patient Records regulations: The Federal rules restrict any use of the information to criminally investigate or prosecute any alcohol or drug abuse patient.[facility] DublinIn the event this information is protected by the Federal Confidentiality of Alcohol and Drug Abuse Patient Records regulations: The Federal rules restrict any use of the information to criminally investigate or prosecute any alcohol or drug abuse patient.[facility] DublinIn the event this information is protected by the Federal Confidentiality of Alcohol and Drug Abuse Patient Records regulations: The Federal rules restrict any use of the information to criminally investigate or prosecute any alcohol or drug abuse patient.[facility] DublinIn the event this information is protected by the Federal Confidentiality of Alcohol and Drug Abuse Patient Records regulations: The Federal rules restrict any use of the information to criminally investigate or prosecute any alcohol or drug abuse patient.[facility] DublinIn the event this information is protected by the Federal Confidentiality of Alcohol and Drug Abuse Patient Records regulations: The Federal rules restrict any use of the information to criminally investigate or prosecute any alcohol or drug abuse patient.[facility] DublinIn the event this information is protected by the Federal Confidentiality of Alcohol and Drug Abuse Patient Records regulations: The Federal rules restrict any use of the information to criminally investigate or prosecute any alcohol or drug abuse patient.[facility] DublinIn the event this information is protected by the Federal Confidentiality of Alcohol and Drug Abuse Patient Records regulations: The Federal rules restrict any use of the information to criminally investigate or prosecute any alcohol or drug abuse patient.[facility] DublinIn the event this information is protected by the Federal Confidentiality of Alcohol and Drug Abuse Patient Records regulations: The Federal rules restrict any use of the information to criminally investigate or prosecute any alcohol or drug abuse patient.[facility] DublinIn the event this information is protected by the Federal Confidentiality of Alcohol and Drug Abuse Patient Records regulations: The Federal rules restrict any use of the information to criminally investigate or prosecute any alcohol or drug abuse patient.[facility] DublinIn the event this information is protected by the Federal Confidentiality of Alcohol and Drug Abuse Patient Records regulations: The Federal rules restrict any use of the information to criminally investigate or prosecute any alcohol or drug abuse patient.[facility] DublinIn the event this information is protected by the Federal Confidentiality of Alcohol and Drug Abuse Patient Records regulations: The Federal rules restrict any use of the information to criminally investigate or prosecute any alcohol or drug abuse patient.[facility] DublinIn the event this information is protected by the Federal Confidentiality of Alcohol and Drug Abuse Patient Records regulations: The Federal rules restrict any use of the information to criminally investigate or prosecute any alcohol or drug abuse patient.[facility] DublinIn the event this information is protected by the Federal Confidentiality of Alcohol and Drug Abuse Patient Records regulations: The Federal rules restrict any use of the information to criminally investigate or prosecute any alcohol or drug abuse patient.[facility] DublinIn the event this information is protected by the Federal Confidentiality of Alcohol and Drug Abuse Patient Records regulations: The Federal rules restrict any use of the information to criminally investigate or prosecute any alcohol or drug abuse patient.[facility] DublinIn the event this information is protected by the Federal Confidentiality of Alcohol and Drug Abuse Patient Records regulations: The Federal rules restrict any use of the information to criminally investigate or prosecute any alcohol or drug abuse patient.[facility] DublinIn the event this information is protected by the Federal Confidentiality of Alcohol and Drug Abuse Patient Records regulations: The Federal rules restrict any use of the information to criminally investigate or prosecute any alcohol or drug abuse patient.[facility] DublinIn the event this information is protected by the Federal Confidentiality of Alcohol and Drug Abuse Patient Records regulations: The Federal rules restrict any use of the information to criminally investigate or prosecute any alcohol or drug abuse patient.[facility] DublinIn the event this information is protected by the Federal Confidentiality of Alcohol and Drug Abuse Patient Records regulations: The Federal rules restrict any use of the information to criminally investigate or prosecute any alcohol or drug abuse patient.[facility] DublinIn the event this information is protected by the Federal Confidentiality of Alcohol and Drug Abuse Patient Records regulations: The Federal rules restrict any use of the information to criminally investigate or prosecute any alcohol or drug abuse patient.[facility] DublinIn the event this information is protected by the Federal Confidentiality of Alcohol and Drug Abuse Patient Records regulations: The Federal rules restrict any use of the information to criminally investigate or prosecute any alcohol or drug abuse patient.[facility] DublinIn the event this information is protected by the Federal Confidentiality of Alcohol and Drug Abuse Patient Records regulations: The Federal rules restrict any use of the information to criminally investigate or prosecute any alcohol or drug abuse patient.[facility] DublinIn the event this information is protected by the Federal Confidentiality of Alcohol and Drug Abuse Patient Records regulations: The Federal rules restrict any use of the information to criminally investigate or prosecute any alcohol or drug abuse patient.[facility] DublinIn the event this information is protected by the Federal Confidentiality of Alcohol and Drug Abuse Patient Records regulations: The Federal rules restrict any use of the information to criminally investigate or prosecute any alcohol or drug abuse patient.[facility] DublinIn the event this information is protected by the Federal Confidentiality of Alcohol and Drug Abuse Patient Records regulations: The Federal rules restrict any use of the information to criminally investigate or prosecute any alcohol or drug abuse patient.[facility] DublinIn the event this information is protected by the Federal Confidentiality of Alcohol and Drug Abuse Patient Records regulations: The Federal rules restrict any use of the information to criminally investigate or prosecute any alcohol or drug abuse patient.[facility] DublinIn the event this information is protected by the Federal Confidentiality of Alcohol and Drug Abuse Patient Records regulations: The Federal rules restrict any use of the information to criminally investigate or prosecute any alcohol or drug abuse patient.[facility] DublinIn the event this information is protected by the Federal Confidentiality of Alcohol and Drug Abuse Patient Records regulations: The Federal rules restrict any use of the information to criminally investigate or prosecute any alcohol or drug abuse patient.[facility] DublinIn the event this information is protected by the Federal Confidentiality of Alcohol and Drug Abuse Patient Records regulations: The Federal rules restrict any use of the information to criminally investigate or prosecute any alcohol or drug abuse patient.[facility] DublinIn the event this information is protected by the Federal Confidentiality of Alcohol and Drug Abuse Patient Records regulations: The Federal rules restrict any use of the information to criminally investigate or prosecute any alcohol or drug abuse patient.[facility] DublinIn the event this information is protected by the Federal Confidentiality of Alcohol and Drug Abuse Patient Records regulations: The Federal rules restrict any use of the information to criminally investigate or prosecute any alcohol or drug abuse patient.[facility] DublinIn the event this information is protected by the Federal Confidentiality of Alcohol and Drug Abuse Patient Records regulations: The Federal rules restrict any use of the information to criminally investigate or prosecute any alcohol or drug abuse patient.[facility] DublinIn the event this information is protected by the Federal Confidentiality of Alcohol and Drug Abuse Patient Records regulations: The Federal rules restrict any use of the information to criminally investigate or prosecute any alcohol or drug abuse patient.[facility] DublinIn the event this information is protected by the Federal Confidentiality of Alcohol and Drug Abuse Patient Records regulations: The Federal rules restrict any use of the information to criminally investigate or prosecute any alcohol or drug abuse patient.[facility] DublinIn the event this information is protected by the Federal Confidentiality of Alcohol and Drug Abuse Patient Records regulations: The Federal rules restrict any use of the information to criminally investigate or prosecute any alcohol or drug abuse patient.[facility] DublinIn the event this information is protected by the Federal Confidentiality of Alcohol and Drug Abuse Patient Records regulations: The Federal rules restrict any use of the information to criminally investigate or prosecute any alcohol or drug abuse patient.[facility] DublinIn the event this information is protected by the Federal Confidentiality of Alcohol and Drug Abuse Patient Records regulations: The Federal rules restrict any use of the information to criminally investigate or prosecute any alcohol or drug abuse patient.[facility] DublinIn the event this information is protected by the Federal Confidentiality of Alcohol and Drug Abuse Patient Records regulations: The Federal rules restrict any use of the information to criminally investigate or prosecute any alcohol or drug abuse patient.[facility] DublinIn the event this information is protected by the Federal Confidentiality of Alcohol and Drug Abuse Patient Records regulations: The Federal rules restrict any use of the information to criminally investigate or prosecute any alcohol or drug abuse patient.[facility] DublinIn the event this information is protected by the Federal Confidentiality of Alcohol and Drug Abuse Patient Records regulations: The Federal rules restrict any use of the information to criminally investigate or prosecute any alcohol or drug abuse patient.[facility] DublinIn the event this information is protected by the Federal Confidentiality of Alcohol and Drug Abuse Patient Records regulations: The Federal rules restrict any use of the information to criminally investigate or prosecute any alcohol or drug abuse patient.[facility] DublinIn the event this information is protected by the Federal Confidentiality of Alcohol and Drug Abuse Patient Records regulations: The Federal rules restrict any use of the information to criminally investigate or prosecute any alcohol or drug abuse patient.[facility] DublinIn the event this information is protected by the Federal Confidentiality of Alcohol and Drug Abuse Patient Records regulations: The Federal rules restrict any use of the information to criminally investigate or prosecute any alcohol or drug abuse patient.[facility] DublinIn the event this information is protected by the Federal Confidentiality of Alcohol and Drug Abuse Patient Records regulations: The Federal rules restrict any use of the information to criminally investigate or prosecute any alcohol or drug abuse patient.[facility] DublinIn the event this information is protected by the Federal Confidentiality of Alcohol and Drug Abuse Patient Records regulations: The Federal rules restrict any use of the information to criminally investigate or prosecute any alcohol or drug abuse patient.[facility] DublinIn the event this information is protected by the Federal Confidentiality of Alcohol and Drug Abuse Patient Records regulations: The Federal rules restrict any use of the information to criminally investigate or prosecute any alcohol or drug abuse patient.[facility] Dublin[facility] the event this information is protected by the Federal Confidentiality of Alcohol and Drug Abuse Patient Records regulations: The Federal rules restrict any use of the information to criminally investigate or prosecute any alcohol or drug abuse patient.[facility] DublinIn the event this information is protected by the Federal Confidentiality of Alcohol and Drug Abuse Patient Records regulations: The Federal rules restrict any use of the information to criminally investigate or prosecute any alcohol or drug abuse patient.[facility] Reason for Visit (unrecogniz ed section and content) Reason Onset Date Comments Transition Of Care 09/14/2021 TCM Initial M [facility] Discharge 09/13/21 Reason Onset Date Comments Transition Of Care 09/14/2021 [facility] Pharmacy- Hospital discharge 09/13/21 Reason Comments Recheck Hosp follow up Specialty Diagnoses / Procedures Referred By Morris t Referred To Contact Internal Medicine / INTERNAL MEDICINE Diagnoses hospital follow up Procedures 4C EST HOSP/ER Hans Izquierdo [address] [place] [address] Anjel Braga APRN.LEARNING SPECIALIST [address] [place] [address] Referral ID Status Reason Start Date Expiration Date V isits Requested Visits Authorized [id number] Closed Financial Clearance Required - OON Payor Patient Cleared INN/SMCP Payor Auth Obtained 09/15/2021 06/18/2022 1 1 Reason Comments Patient Update Reason Comments Medication Problem Plan of Care Reason Comments Nifedipine issue Reason Onset Date Comments Transition Of Care 09/16/2021 [facility] f[facility]u [facility] Discharge 09/13/21 Reason Comments FYI-OT plan of care Reason Comments Anticoagulation Reason Comments Orders Reason Comments medication issue Reason Comments [facility] verbal order needed Reason Comments Medication Problem Reason Comments Consult gallbladder, abdomen pain Specialty Diagnoses / Procedures Referred By Contac t Referred To Contact General Surgery / GENERAL SURGERY Diagnoses Acute cholecystitis Abdominal pain Acute cholecystitis, persistent abdominal pain Procedures OFFICE/OUTPATIENT NEW [facility] MDM 45-59 MINUTES NEW DDI PATIENT Adelaida Farias MD [address] [place] [address] Kaye Ortega MD [address] [place] [address] Referral ID Status Reason Start Date Expiration Date V isits Requested Visits Authorized [id number] Closed Financial Clearance Required - OON Payor Patient Cleared INN/SMCP Payor Auth Obtained 09/08/2021 06/18/2022 1 1 Reason Comments Patient Question visit from 09/15/21 Reason Comments Patient Question Reason Comments Appointment CONSULT FOR CHOLECYS TECTOMY Reason Comments Appointment Reason Onset Date Comments Transition Of Care 09/21/2021 TCM f/u [facility] Discharge 09/13/21 Reason Comments Work excuse letter Reason Onset Date Comments Transition Of Care 09/29/2021 TCM f/u [facility] Discharge 09/13/21 Reason Onset Date Comments Refill Request 10/04/2021 Reason Comments Hypertension Specialty Diagnoses / Procedures Referred By Contac t Referred To Contact Internal Medicine / INTERNAL MEDICINE Diagnoses 09/13 ER Discharge [facility] Broken ribs follow up Procedures 4C EST HOSP/ER FU Daija Morton MD [address] [place] [address] Anjel Braga APRN.ACE [address] [place] [address] Referral ID Status Reason Start Date Expiration Date Visits Re quested Visits Authorized [id number] Closed 10/07/2021 06/18/2022 1 1 Reason Comments Coumadin update / [place] Reason Comments Patient Update Orders Reason Comments [...] Jauregui PA-C [address] [place] [address] [address] Referral ID Status Reason Start Date Expiration Date V isits Requested Visits Authorized [id number] Closed Auto-Generate d Referral 11/05/2021 06/18/2022 1 1 Specialty Diagnoses / Procedures Referred By Contac t Referred To Contact [facility] Diagnoses COPD with chronic bronchitis (HCC) Procedures OXIMETRY WITH AMBULATION NONINVASIVE EAR/PULSE OXIMETRY MULTIPLE Emilie Ko PA-C [address] [place] [address] [address] Referral ID Status Reason Start Date Expiration Date V isits Requested Visits Authorized [id number] Closed Auto-Generate d Referral 11/05/2021 06/18/2022 1 1 Specialty Diagnoses / Procedures Referred By Contac t Referred To Contact Pulmonary and Critical Care Medicine / PULMONARY MEDICINE Diagnoses pre op clearance for gen surgery Procedures RI EST PULM GENERAL Daija Morton MD [address] [place] [id number] Emilie Jauregui PA-C [address] [address] Referral ID Status Reason Start Date Expiration Date Visits Re quested Visits Authorized [id number] Closed 10/21/2021 06/18/2022 1 1 Reason Comments Results Reason Comments Cardiac Clearance surgery to have gall bladder removed Reason Comments UTI Specialty Diagnoses / Procedures Referred By Contac t Referred To Contact Internal Medicine / INTERNAL MEDICINE Diagnoses Essential hypertension UTI Procedures OFFICE/OUTPATIENT ESTABLISHED MOD MDM 30-39 MIN 4C EST Self Omi, CHARLES Nuno.ACE [address] [place] [address] Referral ID Status Reason Start Date Expiration Date Visits Re quested Visits Authorized [id number] Closed 11/17/2021 06/18/2022 1 1 Reason Onset [...] Internal Medicine / INTERNAL MEDICINE Diagnoses Follow-up [facility] f/u Procedures OFFICE/OUTPATIENT ESTABLISHED MOD MDM 30-39 MIN 4C EST HOSP/ER MD Roosevelt Marks Terri, PLASMA CENTER TECHNICIAN.INSURANCE COMMISSIONER [address] [place] [address] Referral ID Status Reason Start Date Expiration Date Visits Re quested Visits Authorized [id number] Closed 01/14/2022 06/18/2022 1 1 Reason Comments Established Patient follow up anand r Reason Comments Recheck Follow up, Hosp foll ow up Specialty Diagnoses / Procedures Referred By Contac t Referred To Contact Internal Medicine / INTERNAL MEDICINE Diagnoses [facility] ER f/u. 01-25-22. Black stool. Procedures 4C EST HOSP/ER MD Omi Marks Joy, PLASMA CENTER TECHNICIAN.LEARNING SPECIALIST [address] [place] [address] Referral ID Status Reason Start Date Expiration Date Visits Re quested Visits Authorized [id number] Closed 01/28/2022 04/28/2022 1 1 Reason Comments Follow Up Specialty Diagnoses / Procedures Referred By Contac t Referred To Contact Vascular Surgery / VASCULAR SURGERY Diagnoses PVD 1 year f/u with PVR and arterial Duplex [place] [address] [address] [place] [address] [place] [address] [place] [address] Referral ID Status Reason Start Date Expiration Date Visits Re quested Visits Authorized [id number] Closed 01/31/2022 06/18/2022 1 1 Reason Comments Results, Lab Reason Onset Date Comments Refill Request 02/22/2022 Reason Comments Erroneous encounter-disregard Reason Comments Fall Reason Comments SWCC orders needed today Reason Comments admit to [facility] Reason Comments Social Work Services Reason Comments Medication Question Reason Comments Syncope Reason Onset Date Comments Refill Request 08/25/2022 Patient Update 08/25/2022 Reason Comments senior living follow-up Reason Onset Date Comments Refill Request [...] fix this, also fell twice while in [facility] Reason Comments Mental status change Reason Comments No Show Reason Onset Date Comments Refill Request 01/23/2024 Reason Onset Date Comments Refill Request 03/12/2024 Reason Comments UTI Foul odor, confusion Reason Comments Home Health Orders Reason Comments [employer] update Reason Comments Home Care Management Patient Update Reason Comments senior living discharge [facility] Reason Onset Date Comments Refill Request 12/13/2024 Reason Comments [facility] requesting records Care Teams (unrecognized sec tion and content) Client Associate Relationship Specialty Start Date End Date Daija Morton MD [address] [place], [place] [address] PCP - General Internal Medicine 03/21/17 Beatriz Correa, LEARNING SPECIALIST Referring 09/28/20 Daija Morton MD [address] [place], [place] [id number] Home Care Physician Internal Medicine 09/28/20 13, Pharmacist [address] [place] [address] Pharmacist Pharmacy 06/17/21 Lizette Ulloa, RN [address] [place] [address] Primary Care Service Coordinator Internal Medicine 09/14/21 10/14/21 Tamika Almaguer PASSPORT Manager Pipeline 09/26/17 Client Associate Relationship Specialty Start Date End Date Daija Morton MD [address] [facility] [place] [address] PCP - General Internal Medicine 03/21/17 Beatriz Correa, LEARNING SPECIALIST Referring 09/28/20 Daija Morton MD [address] [facility] [place] [address] Home Care Physician Internal Medicine 09/28/20 13, Pharmacist [address] [place] [address] Pharmacist Pharmacy 06/17/21 Lizette Ulloa, RN [address] [place] [address] Primary Care Service Coordinator Internal Medicine 09/14/21 10/14/21 Tamika Almaguer PASSPORT Manager Pipeline 09/26/17 Client Associate Relationship Specialty Start Date End Date Daija Morton MD [address] [place] [address] PCP - General Internal Medicine 03/21/17 Beatriz Correa, LEARNING SPECIALIST Referring 09/28/20 Daija Morton MD [address] [place] [address] Home Care Physician Internal Medicine 09/28/20 13, Pharmacist [phone] [facility] [place] [address] Pharmacist Pharmacy 06/17/21 Lizette Ulloa, RN [address] [place] [address] Primary Care Service Coordinator Internal Medicine 09/14/21 10/14/21 Tamika Almaguer PASSPORT Manager Pipeline 09/26/17 Client Associate Relationship Specialty Start Date End Date Daija Morton MD [address] [place] [address] PCP - General Internal Medicine 03/21/17 Beatriz Correa CNP Referring 09/28/20 Daija Morton MD [address] [place] [address] Home Care Physician Internal Medicine 09/28/20 13, Pharmacist [address] [place] [address] Pharmacist Pharmacy 06/17/21 Lizette Ulloa, ОЛЕГ [address] [place] [address] Primary Care Service Coordinator Internal Medicine 09/14/21 10/14/21 Tamika HARRELL Manager Pipeline 09/26/17 Client Associate Relationship Specialty Start Date End Date Daija Morton MD [address] [place] [address] PCP - General Internal Medicine 03/21/17 Beatriz Correa CNP Referring 09/28/20 Daija Morton MD [address] [place] [address] Home Care Physician Internal Medicine 09/28/20 13, Pharmacist [address] [place] [address] Pharmacist Pharmacy 06/17/21 Lizette Ulloa RN [address] [place] [address] Primary Care Service Coordinator Internal Medicine 09/14/21 10/14/21 Tamika HARRELL Manager Pipeline 09/26/17 Client Associate Relationship Specialty Start Date End Date Daija Morton MD [address] [place] [address] PCP - General Internal Medicine 03/21/17 Beatriz Correa CNP Referring 09/28/20 Daija Morton MD [address] [place] [address] Home Care Physician Internal Medicine 09/28/20 13, Pharmacist [address] [place] [address] Pharmacist Pharmacy 06/17/21 [address]ette Ull[address] RN [address] [facility] [place] [address] Primary Care Service Coordinator Internal Medicine 09/14/21 10/14/21 Tamika Almaguer PASSPORT Manager Pipeline 09/26/17 Client Associate Relationship Specialty Start Date End Date Daija Morton MD [address] [place] [address] PCP - General Internal Medicine 03/21/17 Beatriz Correa, LEARNING SPECIALIST Referring 09/28/20 Dajia Morton MD [address] [place] [address] Home Care Physician Internal Medicine 09/28/20 13, Pharmacist [address] [place] [address] Pharmacist Pharmacy 06/17/21 Lizette Ulloa RN [address] [place] [address] Primary Care Service Coordinator Internal Medicine 09/14/21 10/14/21 Tamika Almaguer PASSANYI Manager Pipeline 09/26/17 Client Associate Relationship Specialty Start Date End Date Daija Morton MD [address] [place] [address] PCP - General Internal Medicine 03/21/17 Beatriz Correa, LEARNING SPECIALIST Referring 09/28/20 Daija Morton MD [address] [place] [address] Home Care Physician Internal Medicine 09/28/20 13, Pharmacist [address] [place] [address] Pharmacist Pharmacy 06/17/21 Lizette Ulloa RN [address] [place] [address] Primary Care Service Coordinator Internal Medicine 09/14/21 10/14/21 Kaye Ortega MD [address] [address] General Surgery 09/21/21 Tamika Almaguer PASSANYI Manager Pipeline 09/26/17 Client Associate Relationship Specialty Start Date End Date Daija Morton MD [address] [facility] [place] [address] PCP - General Internal Medicine 03/21/17 Beatriz Correa, ACE Referring 09/28/20 Daija Morton MD [address] [facility] [place] [address] Home Care Physician Internal Medicine 09/28/20 13, Pharmacist [address] [place] [address] Pharmacist Pharmacy 06/17/21 Lizette Ulloa RN [address] [place] [address] Primary Care Service Coordinator Internal Medicine 09/14/21 10/14/21 Kaye Ortega MD [address] [address] General Surgery 09/21/21 Tamika HARRELL Manager Pipeline 09/26/17 Client Associate Relationship Specialty Start Date End Date Daija Morton MD [address] [facility] [place] [address] PCP - General Internal Medicine 03/21/17 Beatriz Correa, LEARNING SPECIALIST Referring 09/28/20 Daija Morton MD [address] [facility] [place] [address] Home Care Physician Internal Medicine 09/28/20 13, Pharmacist [address] [place] [address] Pharmacist Pharmacy 06/17/21 Lizette Ulloa, ОЛЕГ [address] [place] [address] Primary Care Service Coordinator Internal Medicine 09/14/21 10/14/21 Kaye Ortega MD [address] [facility] [place] [address] General Surgery 09/21/21 Tamika Almaguer PASSPORT Manager Pipeline 09/26/17 Client Associate Relationship Specialty Start Date End Date Daija Morton MD [address] [place] [address] PCP - General Internal Medicine 03/21/17 Beatriz Correa, LEARNING SPECIALIST Referring 09/28/20 Daija Morton MD [address] [place] [address] Home Care Physician Internal Medicine 09/28/20 13, Pharmacist [address] [place] [address] Pharmacist Pharmacy 06/17/21 Lizette Ulloa, ОЛЕГ [address] [place] [address] Primary Care Service Coordinator Internal Medicine 09/14/21 10/14/21 Kaye Ortega MD [address] [facility] [place] [address] General Surgery 09/21/21 Tamika HARRELL Manager Pipeline 09/26/17 Client Associate Relationship Specialty Start Date End Date Daija Morton MD [address] [place] [address] PCP - General Internal Medicine 03/21/17 Beatriz Correa, LEARNING SPECIALIST Referring 09/28/20 Daija Morton MD [address] [place] [address] Home Care Physician Internal Medicine 09/28/20 13, Pharmacist [address] [place] [address] Pharmacist Pharmacy 06/17/21 Lizette Ulloa, ОЛЕГ [address] [facility] [place] [address] Primary Care Service Coordinator Internal Medicine 09/14/21 10/14/21 Kaye Ortega MD [address] [place] [address] General Surgery 09/21/21 Tamika HARRELL Manager Pipeline 09/26/17 Client Associate Relationship Specialty Start Date End Date Daija Morton MD [address] [place] [address] PCP - General Internal Medicine 03/21/17 Beatriz Correa, LEARNING SPECIALIST Referring 09/28/20 Daija Morton MD [address] [place] [address] Home Care Physician Internal Medicine 09/28/20 13, Pharmacist [address] [place] [address] Pharmacist Pharmacy 06/17/21 Lizette Ulloa, ОЛЕГ [address] [place] [address] Primary Care Service Coordinator Internal Medicine 09/14/21 10/14/21 Kaye Ortega MD [address] [facility] [place] [address] General Surgery 09/21/21 Tamika HARRELL Manager Pipeline 09/26/17 Client Associate Relationship Specialty Start Date End Date Daija Morton MD [address] [place] [address] PCP - General Internal Medicine 03/21/17 Beatriz Correa, LEARNING SPECIALIST Referring 09/28/20 Daija Morton MD [address] [place] [address] Home Care Physician Internal Medicine 09/28/20 Fco Franklin, ОЛЕГ [address] [place] [address] Personnel Records Clerk 10/08/20 12/21/20 13, Pharmacist [address] [place] [address] Pharmacist Pharmacy 06/17/21 Lizette Ulloa RN [address] [facility] [place] [address] Primary Care Service Coordinator Internal Medicine 09/14/21 10/14/21 Kaye Ortega MD [address] [facility] [place] [address] General Surgery 09/21/21 Tamika Canales [facility] Manager Pipeline 09/26/17 Client Associate Relationship Specialty Start Date End Date Daija Morton MD [address] [place] [address] PCP - General Internal Medicine 03/21/17 Beatriz Correa, LEARNING SPECIALIST Referring 09/28/20 Daija Motron MD [address] [place] [address] Home Care Physician Internal Medicine 09/28/20 13, Pharmacist [address] [place] [address] Pharmacist Pharmacy 06/17/21 Lizette Ulloa RN [address] [place] [address] Primary Care Service Coordinator Internal Medicine 09/14/21 10/14/21 Kaye Ortega MD [address] [facility] [place] [address] General Surgery 09/21/21 Tamika Almaguer PASSPORT Manager Pipeline 09/26/17 Client Associate Relationship Specialty Start Date End Date Daija Morton MD [address] [place], [place] [id number] PCP - General Internal Medicine 03/21/17 Beatriz Correa, LEARNING SPECIALIST Referring 09/28/20 10/12/21 Daija Morton MD [address] [place], [place] [address] Home Care Physician Internal Medicine 09/28/20 10/12/21 13, Pharmacist [address] [place], [place] [phone] Pharmacist Pharmacy 06/17/21 Lizette Ulloa, ОЛЕГ [address] [place], [place] [address] Primary Care Service Coordinator Internal Medicine 09/14/21 10/14/21 Kaye Ortega MD [address] [place] [address] General Surgery 09/21/21 Ye Coello MD [address] [place], [place] [id number] General Surgery 10/13/21 Emilie Jauregui, PA-C [address] [place] [address] Specialty Hot Air Furnace Installer Repairer Pulmonary and Critical Care Medicine 10/13/21 Ryan May MD [address] [place], [place] [address] Specialty Hot Air Furnace Installer Repairer Vascular Surgery 10/13/21 Geronimo Medina DO [address] [address] Medical Imaging Technologist Cardiology 10/13/21 Tamika Almaguer PASSPORT Manager Pipeline 09/26/17 Client Associate Relationship Specialty Start Date End Date Daija Morton MD [address] [place], [place] [id number] PCP - General Internal Medicine 03/21/17 13, Pharmacist [address] [place] [address] Pharmacist Pharmacy 06/17/21 Lizette Ulloa, ОЛЕГ [address] [place] [address] Primary Care Service Coordinator Internal Medicine 09/14/21 10/14/21 Kaye Ortega MD [address] [place] [address] General Surgery 09/21/21 Ye Coello MD [address] [place], [place] [id number] General Surgery 10/13/21 Emilie Jauregui PA-C [address] [place] [address] Specialty Hot Air Furnace Installer Repairer Pulmonary and Critical Care Medicine 10/13/21 Ryan May MD [address] [place], [place] [address] Specialty Hot Air Furnace Installer Repairer Vascular Surgery 10/13/21 Geronimo Medina, DO [address] [address] Medical Imaging Technologist Cardiology 10/13/21 Tamika Almaguer PASSANYI Manager Pipeline 09/26/17 Client Associate Relationship Specialty Start Date End Date Daija Morton MD [address] [place] [address] PCP - General Internal Medicine 03/21/17 Beatriz Correa, LEARNING SPECIALIST Referring 09/28/20 10/12/21 Daija Motron MD [address] [place] [address] Home Care Physician Internal Medicine 09/28/20 10/12/21 13, Pharmacist [address] [place] [address] Pharmacist Pharmacy 06/17/21 Lizette Ulloa RN [address] [place] [address] Primary Care Service Coordinator Internal Medicine 09/14/21 10/14/21 Kaye Ortega MD [address] [place] [address] General Surgery 09/21/21 Ye Coello MD [address] [place], [place] [address] General Surgery 10/13/21 Emilie Jauregui, PA-C [address] [place], [place] [address] Specialty Hot Air Furnace Installer Repairer Pulmonary and Critical Care Medicine 10/13/21 Ryan May MD [address] [place], [place] [address] Specialty Hot Air Furnace Installer Repairer Vascular Surgery 10/13/21 eGronimo Medina, DO [address] [address] Medical Imaging Technologist Cardiology 10/13/21 Tamika Almaguer [email or web address] Manager Pipeline 09/26/17 Client Associate Relationship Specialty Start Date End Date Daija Morton MD [address] [place], [place] [id number] PCP - General Internal Medicine 03/21/17 13, Pharmacist [address] [place] [address] Pharmacist Pharmacy 06/17/21 Lizette Ulloa RN [address] [place], [place] [phone] Primary Care Service Coordinator Internal Medicine 09/14/21 10/14/21 Kaye Ortega MD [address] [place] [address] General Surgery 09/21/21 Ye Coello MD [address] [place], [place] [id number] General Surgery 10/13/21 Emilie Jauregui PA-C [address] [place], [place] [address] Specialty Hot Air Furnace Installer Repairer Pulmonary and Critical Care Medicine 10/13/21 Ryan May MD [address] [place] [address] Specialty Hot Air Furnace Installer Repairer Vascular Surgery 10/13/21 Geronimo Medina DO [address] [address] Medical Imaging Technologist Cardiology 10/13/21 Tamika Almaguer [facility] Manager Pipeline 09/26/17 Client Associate Relationship Specialty Start Date End Date Daija Morton MD [address] [place], [place] [id number] PCP - General Internal Medicine 03/21/17 13, Pharmacist [address] [place] [address] Pharmacist Pharmacy 06/17/21 Kaye Ortega MD [address] [place] [address] General Surgery 09/21/21 Ye Coello MD [address] [facility] [place], [place] [id number] General Surgery 10/13/21 Emilie Jauregui PA-C [address] [place] [address] Specialty Hot Air Furnace Installer Repairer Pulmonary and Critical Care Medicine 10/13/21 Ryan aMy [facility] [address] [facility] [place] [address] Specialty Hot Air Furnace Installer Repairer Vascular Surgery 10/13/21 Geronimo Medina, [address] [address] Medical Imaging Technologist Cardiology 10/13/21 Tamika Almaguer PASSANYI Manager Pipeline 09/26/17 Client Associate Relationship Specialty Start Date End Date Daija Morton MD [address] [place] [address] PCP - General Internal Medicine 03/21/17 13, Pharmacist [address] [place] [address] Pharmacist Pharmacy 06/17/21 Kaye Ortega MD [address] [place] [address] General Surgery 09/21/21 Ye Coello MD [address] [place] [address] General Surgery 10/13/21 Emilie Jauregui PA-C [address] [place] [address] Specialty Hot Air Furnace Installer Repairer Pulmonary and Critical Care Medicine 10/13/21 Ryan May MD [address] [place] [address] Specialty Hot Air Furnace Installer Repairer Vascular Surgery 10/13/21 Geronimo Medina, [address] [address] Medical Imaging Technologist Cardiology 10/13/21 Tamika HARRELL Manager Pipeline 09/26/17 Client Associate Relationship Specialty Start Date End Date Daija Morton MD [address] [place] [address] PCP - General Internal Medicine 03/21/17 13, Pharmacist [address] [place] [address] Pharmacist Pharmacy 06/17/21 Kaye Ortega MD [address] [place] [address] General Surgery 09/21/21 Ye Coello MD [address] [place], [place] [id number] General Surgery 10/13/21 Emilie Jauregui PA-C [address] [place] [address] Specialty Hot Air Furnace Installer Repairer Pulmonary and Critical Care Medicine 10/13/21 Ryan May MD [address] [place] [address] Specialty Hot Air Furnace Installer Repairer Vascular Surgery 10/13/21 Geronimo Medina, DO [address] [address] Medical Imaging Technologist Cardiology 10/13/21 Tamika HARRELL Manager Pipeline 09/26/17 Client Associate Relationship Specialty Start Date End Date Daija Morton MD [address] [place] [address] PCP - General Internal Medicine 03/21/17 13, Pharmacist [address] [place] [address] Pharmacist Pharmacy 06/17/21 Kaye Ortega MD [address] [place] [address] General Surgery 09/21/21 Ye Coello MD [address] [place], [place] [address] General Surgery 10/13/21 Emilie Jauregui PA-C [address] [place] [address] Specialty Hot Air Furnace Installer Repairer Pulmonary and Critical Care Medicine 10/13/21 Ryan May MD [address] [place], [place] [address] Specialty Hot Air Furnace Installer Repairer Vascular Surgery 10/13/21 Geronimo Medina DO [address] [address] Medical Imaging Technologist Cardiology 10/13/21 Tamika Almaguer [facility] Manager Pipeline 09/26/17 Client Associate Relationship Specialty Start Date End Date Daija Morton MD [address] [place] [address] PCP - General Internal Medicine 03/21/17 13, Pharmacist [phone] [place] [address] Pharmacist Pharmacy 06/17/21 Kaye Ortega MD [address] [place] [address] General Surgery 09/21/21 Ye Coello MD [address] [place] [address] General Surgery 10/13/21 Emilie Jauregui PA-C [address] [place] [address] Specialty Hot Air Furnace Installer Repairer Pulmonary and Critical Care Medicine 10/13/21 Ryan May MD [address] [place], [place] [id number] Specialty Hot Air Furnace Installer Repairer Vascular Surgery 10/13/21 Geronimo Medina DO [address] [address] Medical Imaging Technologist Cardiology 10/13/21 Tamika HARRELL Manager P[employer] 09/26/17 Client Associate Relationship Specialty Start Date End Date Daija Morton MD [address] [place] [address] PCP - General Internal Medicine 03/21/17 13, Pharmacist [phone] [place] [address] Pharmacist Pharmacy 06/17/21 Kaye Ortega MD [address] [place] [address] General Surgery 09/21/21 Ye Coello MD [address] [place], [place] [id number] General Surgery 10/13/21 Emilie Jauregui PA-C [address] [place], [place] [address]9301 Specialty Hot Air Furnace Installer Repairer Pulmonary and Critical Care Medicine 10/13/21 Ryan May MD [address] [place] [address] Specialty Hot Air Furnace Installer Repairer Vascular Surgery 10/13/21 Geronimo Medina DO [address] [address] Medical Imaging Technologist Cardiology 10/13/21 Tamika HARRELL Manager [employer] 09/26/17 Client Associate Relationship Specialty Start Date End Date Daija Morton MD [address] [place] [address] PCP - General Internal Medicine 03/21/17 13, Pharmacist [phone] [place] [address] Pharmacist Pharmacy 06/17/21 Kaye Ortega MD [address] [place] [address] General Surgery 09/21/21 Ye Coello MD [address] [place], [place] [id number] General Surgery 10/13/21 Emilie Jauregui PA-C [address] [place] [address] Specialty Hot Air Furnace Installer Repairer Pulmonary and Critical Care Medicine 10/13/21 Ryan May MD [address] [place], [place] [id number] Specialty Hot Air Furnace Installer Repairer Vascular Surgery 10/13/21 Geronimo Medina, [address] [address] Medical Imaging Technologist Cardiology 10/13/21 Tamika Almaguer [facility] Manager Pipeline 09/26/17 Client Associate Relationship Specialty Start Date End Date Daija Morton MD [address] [place] [address] PCP - General Internal Medicine 03/21/17 13, Pharmacist [phone] [place] [address] Pharmacist Pharmacy 06/17/21 Kaye Ortega MD [address] [place] [address] General Surgery 09/21/21 Ye Coello MD [address] [place], [place] [id number] General Surgery 10/13/21 Emilie Jauregui PA-C [address] [place] [address] Specialty Hot Air Furnace Installer Repairer Pulmonary and Critical Care Medicine 10/13/21 Ryan May MD [address] [place] [address] Specialty Hot Air Furnace Installer Repairer Vascular Surgery 10/13/21 Geronimo Medina DO [address] [address] Medical Imaging Technologist Cardiology 10/13/21 Tamika HARRELL Manager [employer] 09/26/17 Client Associate Relationship Specialty Start Date End Date Daija Morton MD [address] [place] [address] PCP - General Internal Medicine 03/21/17 13, Pharmacist [address] [place] [address] Pharmacist Pharmacy 06/17/21 Kaye Ortega MD [address] [place] [address] General Surgery 09/21/21 eY Coello MD [address] [place], [place] [id number] General Surgery 10/13/21 Emilie Jauregui PA-C [address] [place] [address] Specialty Hot Air Furnace Installer Repairer Pulmonary and Critical Care Medicine 10/13/21 Ryan May MD [address] [place] [address] Specialty Hot Air Furnace Installer Repairer Vascular Surgery 10/13/21 Geronimo Medina DO [address] [address] Medical Imaging Technologist Cardiology 10/13/21 Tamika HARRELL Manager [employer] 09/26/17 Client Associate Relationship Specialty Start Date End Date Daija Morton MD [address] [place] [address] PCP - General Internal Medicine 03/21/17 13, Pharmacist [phone] [place] [address] Pharmacist Pharmacy 06/17/21 Kaye Ortega MD [address] [place] [phone] General Surgery 09/21/21 Ye Coello MD [address] [place], [place] [id number] General Surgery 10/13/21 Emilie Jauregui PA-C [address] [place] [address] Specialty Hot Air Furnace Installer Repairer Pulmonary and Critical Care Medicine 10/13/21 Ryan May MD [address] [place] [address] Specialty Hot Air Furnace Installer Repairer Vascular Surgery 10/13/21 Geronimo Medina, [address] [address] Medical Imaging Technologist Cardiology 10/13/21 Tamika Almaguer [email or web address] Manager Pipeline 09/26/17 Client Associate Relationship Specialty Start Date End Date Daija Morton MD [address] [place] [address] PCP - General Internal Medicine 03/21/17 13, Pharmacist [phone] [place] [address] Pharmacist Pharmacy 06/17/21 Kaye Ortega MD [address] [place] [address] General Surgery 09/21/21 Ye Coello MD [address] [place], [place] [id number] General Surgery 10/13/21 Emilie Jauregui PA-C [address] [place], [place] 369481 Specialty Hot Air Furnace Installer Repairer Pulmonary and Critical Care Medicine 10/13/21 Ryan May MD [address] [place], [place] [id number] Specialty Hot Air Furnace Installer Repairer Vascular Surgery 10/13/21 Geronimo Medina, [address] [id number] Medical Imaging Technologist Cardiology 10/13/21 Tamika Almaguer [facility] Manager [employer] 09/26/17 Client Associate Relationship Specialty Start Date End Date Daija Morton MD [address] [place], [place] [id number] PCP - General Internal Medicine 03/21/17 13, Pharmacist [address] [place] [address] Pharmacist Pharmacy 06/17/21 Kaye Ortega MD [address] [place] [address] General Surgery 09/21/21 Ye Coello MD [address] [place] [address] General Surgery 10/13/21 Emilie Jauregui PA-C [address] [place], [place] [id number] Specialty Hot Air Furnace Installer Repairer Pulmonary and Critical Care Medicine 10/13/21 Ryan May MD [address] [place], [place] 2018495 Specialty Hot Air Furnace Installer Repairer Vascular Surgery 10/13/21 Geronimo Medina DO [address] [address] Medical Imaging Technologist Cardiology 10/13/21 Tamika HARRELL Manager [employer] 09/26/17 Client Associate Relationship Specialty Start Date End Date Daija Morton MD [address] [place] [address] PCP - General Internal Medicine 03/21/17 13, Pharmacist [address] [place] [address] Pharmacist Pharmacy 06/17/21 Kaye Ortega MD [address] [place] [address] General Surgery 09/21/21 Ye Coello MD [address] [place], [place] [id number] General Surgery 10/13/21 Emilie Jauregui PA-C [address] [place], [place] 696871 Specialty Hot Air Furnace Installer Repairer Pulmonary and Critical Care Medicine 10/13/21 Ryan May MD [address] [place], [place] [id number] Specialty Hot Air Furnace Installer Repairer Vascular Surgery 10/13/21 Geronimo Medina DO [address] [address] Medical Imaging Technologist Cardiology 10/13/21 Tamika HARRELL Manager [employer] 09/26/17 Client Associate Relationship Specialty Start Date End Date Daija Morton MD [address] [place] [address] PCP - General Internal Medicine 03/21/17 13, Pharmacist [address] [place] [address] Pharmacist Pharmacy 06/17/21 Kaye Ortega MD [address] [place] [address] General Surgery 09/21/21 Ye Coello MD [address] [place], [place] [id number] General Surgery 10/13/21 Emilie Jauregui PA-C [address] [place], [place] 557391 Specialty Hot Air Furnace Installer Repairer Pulmonary and Critical Care Medicine 10/13/21 Ryan May MD [address] [place], [place] 3319395 Specialty Hot Air Furnace Installer Repairer Vascular Surgery 10/13/21 Geronimo Medina DO [address] [address] Medical Imaging Technologist Cardiology 10/13/21 Tamika Almaguer [facility] Manager Pipeline 09/26/17 Client Associate Relationship Specialty Start Date End Date Daija Morton MD [address] [place], [place] [id number] PCP - General Internal Medicine 03/21/17 13, Pharmacist [address] [place] [address] Pharmacist Pharmacy 06/17/21 Kaye Ortega MD [address] [place] [address] General Surgery 09/21/21 Ye Coello MD [address] [place], [place] [id number] General Surgery 10/13/21 Emilie Jauregui PA-C [address] [place] [address] Specialty Hot Air Furnace Installer Repairer Pulmonary and Critical Care Medicine 10/13/21 Ryan May [facility] [address] [facility] [place] [address] Specialty Hot Air Furnace Installer Repairer Vascular Surgery 10/13/21 Geronimo Medina DO [address] [address] Medical Imaging Technologist Cardiology 10/13/21 Tamika HARRELL Manager [employer] 09/26/17 Client Associate Relationship Specialty Start Date End Date Daija Morton MD [address] [place] [address] PCP - General Internal Medicine 03/21/17 13, Pharmacist [address] [place] [address] Pharmacist Pharmacy 06/17/21 Kaye Ortega MD [address] [place] [address] General Surgery 09/21/21 Ye Coello MD [address] [place], [place] [id number] General Surgery 10/13/21 Emilie Jauregui PA-C [address] [place] [address] Specialty Hot Air Furnace Installer Repairer Pulmonary and Critical Care Medicine 10/13/21 Ryan May MD [address] [place] [address] Specialty Hot Air Furnace Installer Repairer Vascular Surgery 10/13/21 Geronimo Medina DO [address] [address] Medical Imaging Technologist Cardiology 10/13/21 Taimka HARRELL Manager P[employer] 09/26/17 Client Associate Relationship Specialty Start Date End Date Daija Morton MD [address] [place] [address] PCP - General Internal Medicine 03/21/17 13, Pharmacist [address]16 [place] [address] Pharmacist Pharmacy 06/17/21 Kaye Ortega MD [address] [place] [phone] General Surgery 09/21/21 Ye Coello MD [address] [place], [place] [id number] General Surgery 10/13/21 Emilie Jauregui PA-C [address] [place] [address] Specialty Hot Air Furnace Installer Repairer Pulmonary and Critical Care Medicine 10/13/21 Ryan May MD [address] [place], [place] 1879695 Specialty Hot Air Furnace Installer Repairer Vascular Surgery 10/13/21 Geronimo Medina, DO [address] [address] Medical Imaging Technologist Cardiology 10/13/21 Tamika Almaguer [facility] Manager Pipeline 09/26/17 Client Associate Relationship Specialty Start Date End Date Daija Morton MD [address] [place] [address] PCP - General Internal Medicine 03/21/17 13, Pharmacist [address]666 [place] [address] Pharmacist Pharmacy 06/17/21 Kaye Ortega MD [address] [place] [address] General Surgery 09/21/21 Ye Coello MD [address] [place], [place] 057325 General Surgery 10/13/21 Emilie Jauregui PA-C [address] [place] [address] Specialty Hot Air Furnace Installer Repairer Pulmonary and Critical Care Medicine 10/13/21 Ryan May MD [address] [place], [place] 2277395 Specialty Hot Air Furnace Installer Repairer Vascular Surgery 10/13/21 Geronimo Medina, [address] [address] Medical Imaging Technologist Cardiology 10/13/21 Tamika Almaguer [employer] Manager P[employer] 09/26/17 Client Associate Relationship Specialty Start Date End Date Daija Morton MD [address] [place], [place] 446971 PCP - General Internal Medicine 03/21/17 13, Pharmacist [address] [place] [address] Pharmacist Pharmacy 06/17/21 Kaye Ortega MD [address] [place] [address] General Surgery 09/21/21 Ye Coello MD [address] [place], [place] [phone] General Surgery 10/13/21 Emilie Jauregui PA-C [address] [place] [address] Specialty Hot Air Furnace Installer Repairer Pulmonary and Critical Care Medicine 10/13/21 Ryan May MD [address] [place] [address] Specialty Hot Air Furnace Installer Repairer Vascular Surgery 10/13/21 Geronimo Medina DO [address] [address] Medical Imaging Technologist Cardiology 10/13/21 Tamika Almaguer [facility] Manager Pipeline 09/26/17 Client Associate Relationship Specialty Start Date End Date Daija Morton MD [address] [place] [address] PCP - General Internal Medicine 03/21/17 13, Pharmacist [address] [place] [address] Pharmacist Pharmacy 06/17/21 Kaye Ortega MD [address] [place] [address] General Surgery 09/21/21 Ye Coello MD [address] [place], [place] [id number] General Surgery 10/13/21 Emilie Jauregui PA-C [address] [place] [address] Specialty Hot Air Furnace Installer Repairer Pulmonary and Critical Care Medicine 10/13/21 Ryan May MD [address] [place] [address] Specialty Hot Air Furnace Installer Repairer Vascular Surgery 10/13/21 Geronimo Medina, DO [address] [address] Medical Imaging Technologist Cardiology 10/13/21 Tamika HARRELL Manager P[employer] 09/26/17 Client Associate Relationship Specialty Start Date End Date Daija Morton MD [address] [place] [address] PCP - General Internal Medicine 03/21/17 13, Pharmacist [address] [place] [address] Pharmacist Pharmacy 06/17/21 Kaye Ortega MD [address] [place] [address] General Surgery 09/21/21 Ye Coello MD [address] [place], [place] [id number] General Surgery 10/13/21 Emilie Jauregui PA-C [address] [place] [address] Specialty Hot Air Furnace Installer Repairer Pulmonary and Critical Care Medicine 10/13/21 Ryan May MD [address] [place], [place] 8796095 Specialty Hot Air Furnace Installer Repairer Vascular Surgery 10/13/21 Geronimo Medina DO [address] [id number] Medical Imaging Technologist Cardiology 10/13/21 Tamika Canales Tripp [facility] Manager Pipeline 09/26/17 Client Associate Relationship Specialty Start Date End Date Daija Morton MD [address] [place] [address] PCP - General Internal Medicine 03/21/17 13, Pharmacist [address]62 [place] [address] Pharmacist Pharmacy 06/17/21 Kaye Ortega MD [address] [place] [address] General Surgery 09/21/21 Ye Coello MD [address] [place], [place] [id number] General Surgery 10/13/21 Emilie Jauregui PA-C [address] [place] [address] Specialty Hot Air Furnace Installer Repairer Pulmonary and Critical Care Medicine 10/13/21 Ryan May MD [address] [place] [address] Specialty Hot Air Furnace Installer Repairer Vascular Surgery 10/13/21 Geronimo Medina DO [address] [address] Medical Imaging Technologist Cardiology 10/13/21 Tamika HARRELL Manager Pipeline 09/26/17 Client Associate Relationship Specialty Start Date End Date Daija Morton MD [address] [place] [address] PCP - General Internal Medicine 03/21/17 13, Pharmacist [address] [place] [address] Pharmacist Pharmacy 06/17/21 Kaye Ortega MD [address] [place] [address] General Surgery 09/21/21 Ye Coello MD [address] [place], [place] 711485 General Surgery 10/13/21 Emilie Jauregui PA-C [address] [place] [address] Specialty Hot Air Furnace Installer Repairer Pulmonary and Critical Care Medicine 10/13/21 Ryan May MD 0820 [place] [address] Specialty Hot Air Furnace Installer Repairer Vascular Surgery 10/13/21 Geronimo Medina DO [address] [address] Medical Imaging Technologist Cardiology 10/13/21 Tamika HARRELL Manager Pipeline 09/26/17 Client Associate Relationship Specialty Start Date End Date Daija Morton MD [address] [place] [address] PCP - General Internal Medicine 03/21/17 13, Pharmacist [address] [place] [address] Pharmacist Pharmacy 06/17/21 Kaye Ortega MD [address] [place] [phone] General Surgery 09/21/21 Ye Coello MD [address] [place], [place] [id number] General Surgery 10/13/21 Emilie Jauregui PA-C [address] [place], [place] 04441691 Specialty Hot Air Furnace Installer Repairer Pulmonary and Critical Care Medicine 10/13/21 Ryan May MD [address] [place], [place] 8163795 Specialty Hot Air Furnace Installer Repairer Vascular Surgery 10/13/21 Geronimo Medina, [address] [id number] Medical Imaging Technologist Cardiology 10/13/21 Tamika Almaguer [email or web address] Manager Pipeline 09/26/17 Client Associate Relationship Specialty Start Date End Date Daija Morton MD [address] [place], [place] [address]5600691 PCP - General Internal Medicine 03/21/17 13, Pharmacist [address]67 [place] [address] Pharmacist Pharmacy 06/17/21 Kaye Ortega MD [address] [place] [address] General Surgery 09/21/21 Ye Coello MD [address] [place], [place] [id number] General Surgery 10/13/21 Emilie Jauregui PA-C [address] [place] [address] Specialty Hot Air Furnace Installer Repairer Pulmonary and Critical Care Medicine 10/13/21 Ryan May MD [address] [place], [place] 3969395 Specialty Hot Air Furnace Installer Repairer Vascular Surgery 10/13/21 Geronimo Medina, [address] [address] Medical Imaging Technologist Cardiology 10/13/21 Tamika Almaguer [email or web address] Manager Pipeline 09/26/17 Client Associate Relationship Specialty Start Date End Date Daija Morton MD [address] [place] [address] PCP - General Internal Medicine 03/21/17 13, Pharmacist [address]47 [place] [address] Pharmacist Pharmacy 06/17/21 Kaye Ortega MD [address] [place] [address] General Surgery 09/21/21 Ye Coello MD [address] [place] [address] General Surgery 10/13/21 Emilie Jauregui PA-C [address] [place] [address] Specialty Hot Air Furnace Installer Repairer Pulmonary and Critical Care Medicine 10/13/21 Ryan May MD [address] [place], [place] 9805195 Specialty Hot Air Furnace Installer Repairer Vascular Surgery 10/13/21 Geronimo Medina DO [address] [address] Medical Imaging Technologist Cardiology 10/13/21 Tamika Almaguer [employer] Manager Pipeline 09/26/17 Client Associate Relationship Specialty Start Date End Date Daija Morton MD [address] [place] [address] PCP - General Internal Medicine 03/21/17 13, Pharmacist [address]365 [place] [address] Pharmacist Pharmacy 06/17/21 Kaye Ortega MD [address] [place] [address] General Surgery 09/21/21 Ye Coello MD [address] [place], [place] 297545 General Surgery 10/13/21 Emilie Jauregui PA-C [address] [place] [address] Specialty Hot Air Furnace Installer Repairer Pulmonary and Critical Care Medicine 10/13/21 Ryan May MD [address] [place] [address] Specialty Hot Air Furnace Installer Repairer Vascular Surgery 10/13/21 Geronimo Mdeina, DO [address] [address] Medical Imaging Technologist Cardiology 10/13/21 Tamika Almaguer [employer] Manager Pipeline 09/26/17 Client Associate Relationship Specialty Start Date End Date Daija Morton MD [address] [place] [address] PCP - General Internal Medicine 03/21/17 13, Pharmacist [address]269 [place] [address] Pharmacist Pharmacy 06/17/21 04/12/22 Kaye Ortega MD [address] [place] [address] General Surgery 09/21/21 Ye Coello MD [address] [place] [place], [place] 121555 General Surgery 10/13/21 Emilie Jauregui PA-C [address] [place] [address] Specialty Hot Air Furnace Installer Repairer Pulmonary and Critical Care Medicine 10/13/21 Ryan May MD [address] [place] [address] Specialty Hot Air Furnace Installer Repairer Vascular Surgery 10/13/21 Geronimo Medina, [address] [address] Medical Imaging Technologist Cardiology 10/13/21 Tamika Canales [facility] Manager Pipeline 09/26/17 Team Status: Active Member Role Status [...] Provider Active Андрей Cooley Attending Provider Active Client Associate Relationship Specialty Start Date End Date Daija Morton MD [address] [place], [place] 235126 [phone] PCP - General Internal Medicine 03/21/17 Kaye Ortega MD [address] [place] [address] General Surgery 09/21/21 Ye Coello MD [address] [place], [place] [id number] General Surgery 10/13/21 Emilie Jauregui PA-C [address] [place] [address] Specialty Hot Air Furnace Installer Repairer Pulmonary and Critical Care Medicine 10/13/21 Ryan May MD [address] [place] [address] Specialty Hot Air Furnace Installer Repairer Vascular Surgery 10/13/21 Geronimo Medina, DO [address] [address] Medical Imaging Technologist Cardiology 10/13/21 Tamika HARRELL Manager Pipeline 09/26/17 Client Associate Relationship Specialty Start Date End Date Daija Morton MD [address] [place] [address] PCP - General Internal Medicine 03/21/17 Kaye Ortega MD [address] [place] [address] General Surgery 09/21/21 Ye Coello MD [address] [place], [place] [id number] General Surgery 10/13/21 Emilie Jauregui PA-C [address] [place] [address] Specialty Hot Air Furnace Installer Repairer Pulmonary and Critical Care Medicine 10/13/21 Ryan May MD [address] [place] [address] Specialty Hot Air Furnace Installer Repairer Vascular Surgery 10/13/21 Geronimo Medina DO [address] [address] Medical Imaging Technologist Cardiology 10/13/21 Tamika HARRELL Manager Pipeline 09/26/17 Client Associate Relationship Specialty Start Date End Date Daija Morton MD [address] [place] [address] PCP - General Internal Medicine 03/21/17 Kaye Ortega MD [address] [place] [address] General Surgery 09/21/21 Ye Coello MD [address] [place], [place] 321435 General Surgery 10/13/21 Emilie Jauregui PA-C [address] [place] [address] Specialty Hot Air Furnace Installer Repairer Pulmonary and Critical Care Medicine 10/13/21 Ryan May MD [address] [place] [address] Specialty Hot Air Furnace Installer Repairer Vascular Surgery 10/13/21 Geronimo Medina, DO [address] [address] Medical Imaging Technologist Cardiology 10/13/21 Tamika Almaguer [facility] Manager Pipeline 09/26/17 Client Associate Relationship Specialty Start Date End Date Daija Morton MD [address] [place] [address] PCP - General Internal Medicine 03/21/17 Kaye Ortega MD [address] [place] [address] General Surgery 09/21/21 Ye Coello MD [address] [place] [address] General Surgery 10/13/21 Emilie Jauregui PA-C [address] [place] [address] Specialty Hot Air Furnace Installer Repairer Pulmonary and Critical Care Medicine 10/13/21 Ryan May MD [address] [place] [address] Specialty Hot Air Furnace Installer Repairer Vascular Surgery 10/13/21 Geronimo Medina, [address] [address] Medical Imaging Technologist Cardiology 10/13/21 Tamika HARRELL Manager Pipeline 09/26/17 Client Associate Relationship Specialty Start Date End Date Daija Morton MD [address] [place] [address] PCP - General Internal Medicine 03/21/17 Kaye Ortega MD [address] [place] [address] General Surgery 09/21/21 Ye Coello MD [address] [place] [address] General Surgery 10/13/21 Emilie Jauregui, PA-C [address] [place] [address] Specialty Hot Air Furnace Installer Repairer Pulmonary and Critical Care Medicine 10/13/21 Ryan May MD [address] [place] [address] Specialty Hot Air Furnace Installer Repairer Vascular Surgery 10/13/21 Geronimo Medina, [address] [address] Medical Imaging Technologist Cardiology 10/13/21 Tamika HARRELL Manager [employer] 09/26/17 Client Associate Relationship Specialty Start Date End Date Daija Morton MD [address] [place] [address] PCP - General Internal Medicine 03/21/17 Kaye Ortega MD [address] [place] [address] General Surgery 09/21/21 Ye Coello MD [address] [place] [address] General Surgery 10/13/21 Emilie Jauregui PA-C [address] [place] [address] Specialty Hot Air Furnace Installer Repairer Pulmonary and Critical Care Medicine 10/13/21 Ryan May MD [address] [place], [place] 6426195 Specialty Hot Air Furnace Installer Repairer Vascular Surgery 10/13/21 Geronimo Medina, DO [address] [id number] Medical Imaging Technologist Cardiology 10/13/21 Tamika Canales Tripp [email or web address] Manager Pipeline 09/26/17 Client Associate Relationship Specialty Start Date End Date Daija Morton MD [address] [place] [address] PCP - General Internal Medicine 03/21/17 Kaye Ortega MD [address] [place] [address] General Surgery 09/21/21 Ye Coello MD [address] [place] [address] General Surgery 10/13/21 Emilie Jauregui PA-C [address] [place] [address] Specialty Hot Air Furnace Installer Repairer Pulmonary and Critical Care Medicine 10/13/21 Ryan May MD [address] [place], [place] [id number] Specialty Hot Air Furnace Installer Repairer Vascular Surgery 10/13/21 Geronimo Medina, DO [address] [address] Medical Imaging Technologist Cardiology 10/13/21 Tamika Almaguer [employer] Manager Pipeline 09/26/17 Client Associate Relationship Specialty Start Date End Date Daija Morton MD [address] [place], [place] 531401 PCP - General Internal Medicine 03/21/17 Kaye Ortega MD [address] [place] [address] General Surgery 09/21/21 Ye Coello MD [address] [place], [place] [id number] General Surgery 10/13/21 Emilie Jauregui PA-C [address] [place], [place] 136091 Specialty Hot Air Furnace Installer Repairer Pulmonary and Critical Care Medicine 10/13/21 Ryan May MD [address] [place] [address] Specialty Hot Air Furnace Installer Repairer Vascular Surgery 10/13/21 Geronimo Medina DO [address] [address] Medical Imaging Technologist Cardiology 10/13/21 Tamika HARRELL Manager [employer] 09/26/17 Team Status: Inactive Member Role Status Dates Dr. Daija Morton MD Primary Care Provider Active Андрей RAIN Attending Provider Active Team Status: Inactive Member Role Status Dates Dr. Daija Morton MD Primary Care Provider Active Dr. Jaden Jauregui MD Emergency Provider Active Client Associate Relationship Specialty Start Date End Date Daija Morton MD [address] [place] [address] PCP - General Internal Medicine 03/21/17 Kaye Ortega MD [address] [facility] [place] [address] General Surgery 09/21/21 Ye Coello MD [address] [place] [address] General Surgery 10/13/21 Emilie Jauregui PA-C [address] [facility] [place], [place] [address] Specialty Hot Air Furnace Installer Repairer Pulmonary and Critical Care Medicine 10/13/21 Ryan May MD [address] [place] [address] Specialty Hot Air Furnace Installer Repairer Vascular Surgery 10/13/21 Geronimo Medina DO [address] [address] Medical Imaging Technologist Cardiology 10/13/21 Tamika Almaguer [facility] Manager Pipeline 09/26/17 Client Associate Relationship Specialty Start Date End Date Daija Morton MD [address] [place] [address] PCP - General Internal Medicine 03/21/17 Kaye Ortega MD [address] [place] [address] General Surgery 09/21/21 Ye Coello MD [address] [place] [address] General Surgery 10/13/21 Emilie Jauregui PA-C [address] [place] [address] Specialty Hot Air Furnace Installer Repairer Pulmonary and Critical Care Medicine 10/13/21 Ryan May MD [address] [place] [address] Specialty Hot Air Furnace Installer Repairer Vascular Surgery 10/13/21 Geronimo Medina DO [address] [address] Medical Imaging Technologist Cardiology 10/13/21 Tamika Meyermary [email or web address] Manager Pipeline 09/26/17 Team Status: Inactive Member Role Status Dates Dr. Daija Morton MD Primary Care Provider Active Dr. Jaden Jauregui MD Attending Provider, Emergency Provider Active Team Status: Inactive Member Role Status Dates Dr. Daija Morton MD Primary Care Provider Active Dr. Huber Alvarado MD Emergency Provider Active Client Associate Relationship Specialty Start Date End Date Daija Morton MD [address] [place], [place] [address]651 PCP - General Internal Medicine 03/21/17 Kaye Ortega MD [address] [facility] [place] [address] General Surgery 09/21/21 Ye Coello MD [address] [place], [place] [address] General Surgery 10/13/21 Emilie Jauregui PA-C [address] [facility] [address] Specialty Hot Air Furnace Installer Repairer Pulmonary and Critical Care Medicine 10/13/21 Ryan [facility] [address] [facility] [place] [address] Specialty Hot Air Furnace Installer Repairer Vascular Surgery 10/13/21 Geronimo Medina DO [address] [address] Medical Imaging Technologist Cardiology 10/13/21 Tamika Almaguer [facility] Manager Pipeline 09/26/17 Team Status: Inactive Member Role Status Dates Dr. Daija Morton MD Primary Care Provider Active Dr. Huber Alvarado MD Attending Provider, Emergency Provider Active Client Associate Relationship Specialty Start Date End Date Daija Morton MD [address] [place], [place] 137591 PCP - General Internal Medicine 03/21/17 Kaye Ortega MD [address] [place] [phone] General Surgery 09/21/21 Ye Coello MD [address] [place], [place] [address]235 General Surgery 10/13/21 Emilie Jauregui PA-C [address] [place] [address] Specialty Hot Air Furnace Installer Repairer Pulmonary and Critical Care Medicine 10/13/21 Ryan May [facility] [address] [facility] [place] [address] Specialty Hot Air Furnace Installer Repairer Vascular Surgery 10/13/21 Geronimo Medina DO [address] [address] Medical Imaging Technologist Cardiology 10/13/21 Tamika [email or web address] Manager Pipeline 09/26/17 Team Status: Active Member Role Status [...] MD Admit Provider, Attending Pro vider Active Client Associate Relationship Specialty Start Date End Date Daija Morton MD [address] [place], [place] 607001 PCP - General Internal Medicine 03/21/17 Kaye Ortega MD [address] [place] [phone] General Surgery 09/21/21 Ye Coello MD [address] [place], [place] 351555 General Surgery 10/13/21 Emilie Jauregui PA-C [address] [place], [place] [address]24641 Specialty Hot Air Furnace Installer Repairer Pulmonary and Critical Care Medicine 10/13/21 yRan May MD [address] [place] [address] Specialty Hot Air Furnace Installer Repairer Vascular Surgery 10/13/21 Geronimo Medina DO [address] [address] Medical Imaging Technologist Cardiology 10/13/21 Tamika [email or web address] Manager Pipeline 09/26/17 Team Status: Active Member Role Status [...] Alvarado MD Emergency Provider Active Dr. Fran Carwtright MD Admit Provider, Attending Provider, Other Provider [...] Dr. Elton Moore MD Other Provider Active Client Associate Relationship Specialty Start Date End Date Daija Morton MD [address] [place] [address] PCP - General Internal Medicine 03/21/17 Kaye Ortega MD [address] [place] [address] General Surgery 09/21/21 Ye Coello MD [address] [place] [address] General Surgery 10/13/21 Emilie Jauregui PA-C [address] [place] [address] Specialty Hot Air Furnace Installer Repairer Pulmonary and Critical Care Medicine 10/13/21 Ryan [facility] [address] [facility] [place] [address] Specialty Hot Air Furnace Installer Repairer Vascular Surgery 10/13/21 Geronimo Medina DO [address] [address] Medical Imaging Technologist Cardiology 10/13/21 Tamika Almaguer [facility] Manager Pipeline 09/26/17 Client Associate Relationship Specialty Start Date End Date Daija Morton MD [address] [place], [place] [address]16279 [phone] PCP - General Internal Medicine 03/21/17 Kaye Ortega MD [address] [facility] [place] [address] General Surgery 09/21/21 Ye Coello MD [address] [place] [address] General Surgery 10/13/21 Emilie Jauregui PA-C [address] [place] [address] Specialty Hot Air Furnace Installer Repairer Pulmonary and Critical Care Medicine 10/13/21 Ryan May MD [address] [place] [address] Specialty Hot Air Furnace Installer Repairer Vascular Surgery 10/13/21 Geronimo Medina DO [address] [place] [address] Medical Imaging Technologist Cardiology 10/13/21 Tamika Almaguer [facility] Manager Pipeline 09/26/17 Client Associate Relationship Specialty Start Date End Date Daija Morton MD [address] [place], [place] 114031 PCP - General Internal Medicine 03/21/17 Kaye Ortega MD [address] [place] [address] General Surgery 09/21/21 Ye Coello MD [address] [place], [place] 376375 General Surgery 10/13/21 Emilie Jauregui PA-C [address] [place], [place] 73[address]31 Specialty Hot Air Furnace Installer Repairer Pulmonary and Critical Care Medicine 10/13/21 Ryan May MD [address] [place] [address] Specialty Hot Air Furnace Installer Repairer Vascular Surgery 10/13/21 Geronimo Medina DO [address] [place] [address] Medical Imaging Technologist Cardiology 10/13/21 Tamika Almaguer [facility] Manager Pipeline 09/26/17 Team Status: Inactive Member Role Status [...] Provi ashley, Attending Provider, Referring Provider Active Client Associate Relationship Specialty Start Date End Date Daija Morton MD [address] [place], [place] 588831 PCP - General Internal Medicine 03/21/17 Kaye Ortega MD [address] [place] [address] General Surgery 09/21/21 Ye Coello MD [address] [place], [place] 9[address] General Surgery 10/13/21 Emilie Jauregui PANeshaC [address] [place], [place] 250301 Specialty Hot Air Furnace Installer Repairer Pulmonary and Critical Care Medicine 10/13/21 Ryan May MD [address] [place] [address] Specialty Hot Air Furnace Installer Repairer Vascular Surgery 10/13/21 Geronimo Medina DO [address] [place] [address] Medical Imaging Technologist Cardiology 10/13/21 Tamika Almaguer [facility] Manager Pipeline 09/26/17 Team Status: Active Member Role Status [...] Morton MD Primary Care Provider Active Dr. Rual Melchor DO Emergency Provider Active Dr. Андрей [...] Dr. Ryan Guerin DO Attending Provider Active Client Associate Relationship Specialty Start Date End Date Daija Morton MD [address] [place], [place] 796791 PCP - General Internal Medicine 03/21/17 Kaye Ortega MD [address] [place] [address] General Surgery 09/21/21 Ye Coello MD [address] [place], [place] 6384[address] General Surgery 10/13/21 Emilie Jauregui PA-C [address] [place], [place] 177655 [phone] Specialty Hot Air Furnace Installer Repairer Pulmonary and Critical Care Medicine 10/13/21 Ryan May [facility] [address] [facility] [place] [address] Specialty Hot Air Furnace Installer Repairer Vascular Surgery 10/13/21 Geronimo Medina DO [address] [place] [address] Medical Imaging Technologist Cardiology 10/13/21 Tamika Canales [facility] Manager Pipeline 09/26/17 Client Associate Relationship Specialty Start Date End Date Daija Morton MD [address] [place], [place] [id number] PCP - General Internal Medicine 03/21/17 Kaye Ortega MD [address] [place] [address] General Surgery 09/21/21 Ye Coello MD [address] [place], [place] [address]85 General Surgery 10/13/21 Emilie Jauregui PA-C [address] [place] [address] Specialty Hot Air Furnace Installer Repairer Pulmonary and Critical Care Medicine 10/13/21 Ryan May MD [address] [facility] [place] [address] Specialty Hot Air Furnace Installer Repairer Vascular Surgery 10/13/21 Geronimo Medina DO [address] [place] [address] Medical Imaging Technologist Cardiology 10/13/21 Tamika HARRELL Manager [employer] 09/26/17 Client Associate Relationship Specialty Start Date End Date Daija Morton MD [address] [place] [address] PCP - General Internal Medicine 03/21/17 Kaye Ortega MD [address] [place] [address] General Surgery 09/21/21 Ye Coello MD [address] [place] [address] General Surgery 10/13/21 Emilie Jauregui, PA-C [address] [place] [address] Specialty Hot Air Furnace Installer Repairer Pulmonary and Critical Care Medicine 10/13/21 Ryan May MD [address] [place] [address] Specialty Hot Air Furnace Installer Repairer Vascular Surgery 10/13/21 Geronimo Medina DO [address] [place] [address] Medical Imaging Technologist Cardiology 10/13/21 Tamika HARRELL Manager Pipeline 09/26/17 Client Associate Relationship Specialty Start Date End Date Daija Morton MD [address] [place], [place] 636291 PCP - General Internal Medicine 03/21/17 Kaye Ortega MD [address] [address] General Surgery 09/21/21 Ye Coello MD [address] [place], [place] [address] General Surgery 10/13/21 Emilie Jauregui PA-C [address] [place] [address] Specialty Hot Air Furnace Installer Repairer Pulmonary and Critical Care Medicine 10/13/21 Ryan May MD [address] [place] [address] Specialty Hot Air Furnace Installer Repairer Vascular Surgery 10/13/21 Geronimo Medina DO [address] [place] [address] Medical Imaging Technologist Cardiology 10/13/21 Tamika Almaguer [facility] Manager Pipeline 09/26/17 Client Associate Relationship Specialty Start Date End Date Daija Morton MD [address] [place] [address] PCP - General Internal Medicine 03/21/17 Kaye Ortega MD [address] [place] [address] General Surgery 09/21/21 Ye Coello MD [address] [place] [address] General Surgery 10/13/21 Emilie Jauregui PA-C [address] [place] [address] Specialty Hot Air Furnace Installer Repairer Pulmonary and Critical Care Medicine 10/13/21 Ryan May MD [address] [place] [address] Specialty Hot Air Furnace Installer Repairer Vascular Surgery 10/13/21 Geronimo Medina DO [address] [place] [address] Medical Imaging Technologist Cardiology 10/13/21 Tamika Almaguer [facility] Manager Pipeline 09/26/17 Client Associate Relationship Specialty Start Date End Date Daija Morton MD [address] [place] [address] PCP - General Internal Medicine 03/21/17 Kaye Ortega MD [address] [place] [address] General Surgery 09/21/21 Ye Coello MD [address] [place], [place] 832455 General Surgery 10/13/21 Emilie Jauregui PA-C [address] [place] [address] Specialty Hot Air Furnace Installer Repairer Pulmonary and Critical Care Medicine 10/13/21 Ryan May MD [address] [place] [address] Specialty Hot Air Furnace Installer Repairer Vascular Surgery 10/13/21 Geronimo Medina DO [address] [place] [address] Medical Imaging Technologist Cardiology 10/13/21 Tamika HARRELL Manager [employer] 09/26/17 Client Associate Relationship Specialty Start Date End Date Daija Morton MD [address] [place], [place] 566851 PCP - General Internal Medicine 03/21/17 Kaye Ortega MD [address] [place] [address] General Surgery 09/21/21 Ye Coello MD [address] [place] [address] General Surgery 10/13/21 Emilie Jauregui PA-C [address] [place] [address] Specialty Hot Air Furnace Installer Repairer Pulmonary and Critical Care Medicine 10/13/21 Ryan May [facility] [address] [facility] [place] [address] Specialty Hot Air Furnace Installer Repairer Vascular Surgery 10/13/21 Geronimo Medina DO [address] [place] [address] Medical Imaging Technologist Cardiology 10/13/21 Tamika HARRELL Manager Pipeline 09/26/17 Client Associate Relationship Specialty Start Date End Date Daija Morton MD [address] [place] [address] PCP - General Internal Medicine 03/21/17 Kaye Ortega MD [address] [place] [address] General Surgery 09/21/21 Ye Coello MD [address] [place], [place] [address] General Surgery 10/13/21 Emilie Jauregui PA-C [address] [facility] [place] [address] Specialty Hot Air Furnace Installer Repairer Pulmonary and Critical Care Medicine 10/13/21 Ryan May MD [address] [place] [address] Specialty Hot Air Furnace Installer Repairer Vascular Surgery 10/13/21 Geronimo Medina DO [address] [place] [address] Medical Imaging Technologist Cardiology 10/13/21 Tamika Almaguer [facility] Manager Pipeline 09/26/17 Client Associate Relationship Specialty Start Date End Date Daija Morton MD [address] [place], [place] [address] PCP - General Internal Medicine 03/21/17 Kaye Ortega MD [address] [place] [address] General Surgery 09/21/21 Ye Coello MD [address] [place], [place] 961665 General Surgery 10/13/21 Emilie Jauregui PA-C [address] [place], [place] [address]483 [phone] Specialty Hot Air Furnace Installer Repairer Pulmonary and Critical Care Medicine 10/13/21 Ryan May MD [address] [place] [address] Specialty Hot Air Furnace Installer Repairer Vascular Surgery 10/13/21 Geronimo Medina DO [address] [place] [address] Medical Imaging Technologist Cardiology 10/13/21 Tamika HARRELL Manager Pipeline 09/26/17 Client Associate Relationship Specialty Start Date End Date Daija Morton MD [address] [place] [address] PCP - General Internal Medicine 03/21/17 Beatriz Correa CNP [address] [place] [address] Referring 09/28/20 10/12/21 Daija Morton MD [address] [place], [place] 170521 Home Care Provider Internal Medicine 09/28/20 10/12/21 Fco Franklin, ОЛЕГ [address] [place], [place] 8833231 Personnel Records Clerk 10/08/20 12/21/20 Tamika HARRELL Manager Pipeline 09/26/17 Client Associate Relationship Specialty Start Date End Date Daija Morton MD [address] [place] [address] PCP - General Internal Medicine 03/21/17 Kaye Ortega MD [address] [place] [address] General Surgery 09/21/21 eY Coello MD [address] [place], [place] 835665 General Surgery 10/13/21 Emilie Jauregui PA-Edilma [address] [place], [place] [address] Specialty Hot Air Furnace Installer Repairer Pulmonary and Critical Care Medicine 10/13/21 Ryan May MD [address] [facility] [place] [address] Specialty Hot Air Furnace Installer Repairer Vascular Surgery 10/13/21 Geronimo Medina DO [address] [place] [address] Medical Imaging Technologist Cardiology 10/13/21 Tamika [facility] Manager Pipeline 09/26/17 Client Associate Relationship Specialty Start Date End Date Daija Morton MD [address] [place], [place] 41014691 PCP - General Internal Medicine 03/21/17 Kaye Ortega MD [address] [place] [address] General Surgery 09/21/21 Ye Coello MD [address] [place] [address] General Surgery 10/13/21 Emilie Jauregui, YARIEL-Edilma [address] [place] [address] Specialty Hot Air Furnace Installer Repairer Pulmonary and Critical Care Medicine 10/13/21 Ryan May MD [address] [place] [address] Specialty Hot Air Furnace Installer Repairer Vascular Surgery 10/13/21 Geronimo Medina DO [address] [place] [address] Medical Imaging Technologist Cardiology 10/13/21 Tamika HARRELL Manager Pipeline 09/26/17 Client Associate Relationship Specialty Start Date End Date Daija Morton MD [address] [place], [place] 418291 PCP - General Internal Medicine 03/21/17 Kaye Ortega MD [address] [place] [address] General Surgery 09/21/21 Ye Coello MD [address] [place], [place] 486805 General Surgery 10/13/21 Emilie Jauregui PA-C [address] [place] [address] Specialty Hot Air Furnace Installer Repairer Pulmonary and Critical Care Medicine 10/13/21 Ryan May MD [address] [place] [address] Specialty Hot Air Furnace Installer Repairer Vascular Surgery 10/13/21 Geronimo Medina DO [address] [place] [address] Medical Imaging Technologist Cardiology 10/13/21 Tamika HARRELL Manager Pipeline 09/26/17 Client Associate Relationship Specialty Start Date End Date Daija Morton MD [address] [place], [place] 891561 PCP - General Internal Medicine 03/21/17 Kaye Ortega MD [address] [place] [address] General Surgery 09/21/21 Ye Coello MD [address] [place] [address] General Surgery 10/13/21 Emilie Jauregui PA-C [address] [place] [address] Specialty Hot Air Furnace Installer Repairer Pulmonary and Critical Care Medicine 10/13/21 Ryan May MD [address] [place] [address] Specialty Hot Air Furnace Installer Repairer Vascular Surgery 10/13/21 Geronimo Medina DO [address] [place] [address] Medical Imaging Technologist Cardiology 10/13/21 [facility]ika [facility] Manager Pipeline 09/26/17 Team Status: Active Member Role Status Dates Dr. Daija Morton MD Primary Care Provider Active Team Status: Active Member Role Status Dates Dr. Daija Morton MD Primary Care Provider Active Start: July 15, 2024 Dr. Caral RAIN MD Attending Provider Active Start: July [...] Active Member Role Status Dates Dr. Daija Mortno MD Primary Care Provider Active Start: August [...] Active Start : August 27, 2024 Dr. Lisha Talamantes DO Other Provider [...] Active Start : September 02, 2024 Dr. Elton Moore MD [...] November 05, 2024 End: November 05, 2024 Client Associate Relationship Specialty Start Date End Date Daija Morton MD [address] [place], [place] 650721 PCP - General Internal Medicine 03/21/17 Kaye Ortega MD [address] [place] [address] General Surgery 09/21/21 Ye Coello MD [address] [place], [place] 294985 General Surgery 10/13/21 Emilie Jauregui, PANeshaC [address] [place], [place] 335391 Specialty Hot Air Furnace Installer Repairer Pulmonary and Critical Care Medicine 10/13/21 Ryan May MD [address] [place] [address] Specialty Hot Air Furnace Installer Repairer Vascular Surgery 10/13/21 Geronimo Medina DO [address] [place] [address] Medical Imaging Technologist Cardiology 10/13/21 Anjel Braga APRN.CNP [address] [place] [address] Facility Coordinator Internal Medicine 05/26/24 Tamika HARRELL Manager Pipeline 09/26/17 Client Associate Relationship Specialty Start Date End Date Daija Morton MD [address] [place] [address] PCP - General Internal Medicine 03/21/17 Kaey Ortega MD [address] [facility] [place] [address] General Surgery 09/21/21 Ye Coello MD [address] [place] [address] General Surgery 10/13/21 Emilie Jauregui PANeshaC [address] [facility] [place], [place] [address] [phone] Specialty Hot Air Furnace Installer Repairer Pulmonary and Critical Care Medicine 10/13/21 Ryan May MD [address] [place] [address] Specialty Hot Air Furnace Installer Repairer Vascular Surgery 10/13/21 Geronimo Medina DO [address] [place] [address] Medical Imaging Technologist Cardiology 10/13/21 Anjel Braga APRN.LEARNING SPECIALIST [address] [place] [address] Facility Coordinator Internal Medicine 05/26/24 Tamika Almaguer [facility] Manager Pipeline 09/26/17 Client Associate Relationship Specialty Start Date End Date Daija Morton MD [address] [place] [address] PCP - General Internal Medicine 03/21/17 Kaye Ortega MD [address] [address] General Surgery 09/21/21 Ye Coello MD [address] [place], [place] 8975[address] General Surgery 10/13/21 Emilie Jauregui PA-C [address] [facility] [place], [place] [address] Specialty Hot Air Furnace Installer Repairer Pulmonary and Critical Care Medicine 10/13/21 Ryan May MD [address] [place] [address] Specialty Hot Air Furnace Installer Repairer Vascular Surgery 10/13/21 Geronimo Medina DO [address] [place] [address] Medical Imaging Technologist Cardiology 10/13/21 Anjel Braga APRN.LEARNING SPECIALIST [address] [place], [place] 678831 Facility Coordinator Internal Medicine 05/26/24 Tamika Canales [facility] Manager Pipeline 09/26/17 Client Associate Relationship Specialty Start Date End Date Daija Morton MD [address] [place], [place] 077901 PCP - General Internal Medicine 03/21/17 Kaye Ortega MD [address] [place] [address] General Surgery 09/21/21 Ye Coello MD [address] [place], [place] 396[address] General Surgery 10/13/21 Emilie Jauregui PA-C [address] [place], [place] [address]3601 Specialty Hot Air Furnace Installer Repairer Pulmonary and Critical Care Medicine 10/13/21 Ryan May MD [address] [place] [address] Specialty Hot Air Furnace Installer Repairer Vascular Surgery 10/13/21 Geronimo Medina DO [address] [place] [address] Medical Imaging Technologist Cardiology 10/13/21 Anjel Braga APRN.LEARNING SPECIALIST [address] [place], [place] [id number] Facility Coordinator Internal Medicine 05/26/24 Tamika Almaguer [facility] Manager Pipeline 09/26/17 Client Associate Relationship Specialty Start Date End Date Daija Morton MD [address] [place], [place] 318441 PCP - General Internal Medicine 03/21/17 Kaye Ortega MD [address] [place] [address] General Surgery 09/21/21 Ye Coello MD [address] [place], [place] 247935 General Surgery 10/13/21 Emilie Jauregui PA-C [address] [facility] [place], [place] [address] Specialty Hot Air Furnace Installer Repairer Pulmonary and Critical Care Medicine 10/13/21 Ryan May MD [address] [place] [address] Specialty Hot Air Furnace Installer Repairer Vascular Surgery 10/13/21 Geronimo Medina DO [address] [place] [address] Medical Imaging Technologist Cardiology 10/13/21 Anjel Braga APRN.LEARNING SPECIALIST [address] [place] [address] Facility Coordinator Internal Medicine 05/26/24 Tamika [facility] Manager Pipeline 09/26/17 Client Associate Relationship Specialty Start Date End Date Daija Morton MD [address] [place], [place] 703511 PCP - General Internal Medicine 03/21/17 Kaye Ortega MD [address] [place] [address] General Surgery 09/21/21 eY Coello MD [address] [place], [place] 751515 General Surgery 10/13/21 Emilie Jauregui, PA-C [address] [place] [address] Specialty Hot Air Furnace Installer Repairer Pulmonary and Critical Care Medicine 10/13/21 Ryan May MD [address] [place] [address] Specialty Hot Air Furnace Installer Repairer Vascular Surgery 10/13/21 Geronimo Medina DO [address] [place] [address] Medical Imaging Technologist Cardiology 10/13/21 Anjel Braga APRN.LEARNING SPECIALIST [address] [place], [place] 990[address] [facility] Internal Medicine 05/26/24 Tamika HARRELL Manager Pipeline 09/26/17 Goals (unrecognized section and content) Goals [...] BE BASED ON THE PRIMARY CLINICAL RECORDS. [employer] provides no warranty or guarantee of the accuracy or completeness of information in this document.
[2024-12-13] MEDS: Methylprednisolone Sod Succ 40 MG/ML VIAL IV (22:14)
[2024-12-13] MEDS: Mirtazapine 15 MG Tablet PO (22:22)
[2024-12-13] MEDS: Atorvastatin Calcium 40 MG Tablet PO (22:22)
[2024-12-13] MEDS: Tamsulosin HCl 0.4 MG Capsule PO (22:23)
[2024-12-13] MEDS: carBAMazepine 200 MG CPMP.12HR PO (22:42)
[2024-12-13] MEDS: 0.9% Saline Lock 10 ML Syringe IV (23:13)
[2024-12-13] MEDS: hydrALAZINE 20 MG/ML Vial 10 MG IV (23:13)
[2024-12-13 23:25] LABS: Procalcitonin 0.05 ng/mL (<=0.10)
--- NOTE | 2024-12-13 23:43 | CPS ---
Patient not in any type of respiratory distress, vbg results show no acute disease process. Patient does not wear bipap at home.
[2024-12-14] VITALS (10 sets, daily range): BP systolic 144–169; BP diastolic 61–81; PULSE 69–84; RESP 16–20; TEMP 36.1–36.7; O2SAT 91–97; BMI 23.6
[2024-12-14] MEDS: Methylprednisolone Sod Succ 40 MG/ML VIAL IV ×3 (05:25→21:15)
[2024-12-14 06:37] LABS: Absolute Lymphocyte Count 0.65 X10^3/uL (0.83-4.51); Absolute Neutrophil Count 3.4 X10^3/uL (2.0-7.7); Basophil# 0.01 X10^3/uL; Basophil% 0.2 % (0-1); Hematocrit 33.7 % (40-54); Hemoglobin 10.6 g/dL (13.0-16.5); Lymphocyte # 0.65 X10^3/ul (0.83-4.51); Mean Corp Hgb Conc 31.5 g/dL (32-36); Mean Corpuscular Hgb 27.8 pg (27.0-32.0); Mean Corpuscular Volume 88.5 fL (80-94); Mean Platelet Vol. 10.1 fl (6.2-12.0); Monocyte# 0.23 X10^3/uL; Monocyte% 5.3 % (0-10); NRBC Flagged by Analyzer 0 % (0-5); Neutrophil # 3.43 X10^3/uL (2.7-7.7); Neutrophil % 79.3 % (47-70); Platelet Count 306 K/mm3 (150-450); RBC Distribution Width CV 13.7 % (11.6-14.6); RBC Distribution Width SD 44.5 fl (35.1-43.9); Red Blood Count 3.81 M/mm3 (4.6-6.2); White Blood Count 4.3 K/mm3 (4.4-11.0)
[2024-12-14 06:41] LABS: Prothrombin Time (Protime)PT. 13.5 SECONDS (11.7-14.9)
[2024-12-14] MEDS: Ipratropium/Albuterol Sulfate 3 ML AMPUL.NEB INHALATION ×2 (06:47→11:08)
[2024-12-14 07:00] LABS: ALB/GLOB Ratio 1.6 RATIO (0.9-2.4); AST(SGOT) 18 U/L (<=37); Alanine Aminotransfer ALT/SGPT 16 U/L (<=46); Alkaline Phosphatase 70 U/L (40-129); Anion Gap 13 (5-15); BUN 13 mg/dL (4-19); BUN/Creat Ratio 12.3 RATIO (10-20); Calcium,Total 9.5 mg/dL (7.6-11.0); Carbon Dioxide 24.4 mmol/L (21.0-32.0); Chloride 105 mmol/L (98-108); Creatinine, Serum 1.04 mg/dL (0.70-1.20); EST Glomerular Filtration Rate 75 (>60); Estimated Creatinine Clearance 59.38 ml/min (50-250); Globulin 2.5 g/dL (2.2-4.2); Glucose 129 mg/dL (70-99); Potassium 3.8 mmol/L (3.3-5.1); Protein, Total 6.6 g/dL (5.9-8.4); Sodium Level 143 mmol/L (133-145); Total Bilirubin < 0.15 mg/dL (0.00-1.30)
--- NOTE | 2024-12-14 08:10 | PCM.PN.HOSP ---
Reason for Visit Reason for Visit: Shortness of breath Subjective Subjective Patient states he still feels short of breath however he is on 2 L nasal cannula which is reported on initial admission documentation is his baseline. When I discussed this with him he states that he is on 4 L at home. Since it does appear that we are unclear we will have to assess on Monday to see exactly what his baseline oxygen requirement is. He does have known significant COPD. Per discussion with social work there are significant social issues as well. Objective Data Objective Data Vital Signs: Vital Signs Temp Pulse Resp BP Pulse Ox O2 Del Method O2 Flow Rate 98 F 72 18 165/80 H 91 Nasal Cannula 3 12/14/24 03:30 12/14/24 06:48 12/14/24 06:48 12/14/24 03:30 12/14/24 06:48 12/14/24 06:48 12/14/24 06:48 Oxygen Flow Rate (L/min) 3 Oxygen Delivery Method Nasal Cannula Weight: 70.5 kg Body Mass Index (BMI) 23.6 Intake & Output: Intake and Output for Last 24 Hours 12/12/24 12/13/24 12/14/24 23:59 23:59 23:59 Intake Total 250 / 250 Output Total 500 / 500 Balance -250 / -250 Lab / Micro Data 12/14/24 06:08 12/14/24 06:08 Labs: Laboratory Results - last 24 hr 12/13/24 18:26: WBC 5.9, RBC 4.15 L, Hgb 11.5 L, Hct 37.5 L, MCV 90.4, MCH 27.7, MCHC 30.7 L, RDW Std Deviation 44.8 H, RDW Coeff of Aly 13.7, Plt Count 299, MPV 9.7, Immature Gran % (Auto) 0.300, Neut % (Auto) 67.3, Lymph % (Auto) 19.5, Dougherty % (Auto) 8.9, Eos % (Auto) 3.0, Baso % (Auto) 1.0, Absolute Neuts (auto) 4.0, Absolute Lymphs (auto) 1.16, Nucleated RBC % 0, PT 12.5, INR 0.9, Sodium 141, Potassium 3.7, Chloride 104, Carbon Dioxide 24.4, Anion Gap 13, BUN 12, Creatinine 1.11, Estim Creat Clear Calc 55.63, Est GFR (MDRD) Non-Af 69, BUN/Creatinine Ratio 11.0, Glucose 102 H, Calcium 9.7, Procalcitonin 0.05 12/14/24 06:08: WBC 4.3 L, RBC 3.81 L, Hgb 10.6 L, Hct 33.7 L, MCV 88.5, MCH 27.8, MCHC 31.5 L, RDW Std Deviation 44.5 H, RDW Coeff of Aly 13.7, Plt Count 306, MPV 10.1, Immature Gran % (Auto) 0.200, Neut % (Auto) 79.3 H, Lymph % (Auto) 15.0 L, Dougherty % (Auto) 5.3, Eos % (Auto) 0.0, Baso % (Auto) 0.2, Absolute Neuts (auto) 3.4, Absolute Lymphs (auto) 0.65 L, Nucleated RBC % 0, PT 13.5, INR 1.0, Sodium 143, Potassium 3.8, Chloride 105, Carbon Dioxide 24.4, Anion Gap 13, BUN 13, Creatinine 1.04, Estim Creat Clear Calc 59.38, Est GFR (MDRD) Non-Af 75, BUN/Creatinine Ratio 12.3, Glucose 129 H, Calcium 9.5, Total Bilirubin < 0.15, AST 18, ALT 16, Alkaline Phosphatase 70, Total Protein 6.6, Albumin 4.0, Globulin 2.5, Albumin/Globulin Ratio 1.6 Micro: Microbiology 12/13/24 20:22 Mucosa - Nasopharyngeal Respiratory Panel (PCR) - Final 12/13/24 18:26 Mucosa - Nose SARS-CoV-2, Influenza & RSV (PCR) - Final ABG Data ABG results: ABG 12/13/24 20:49 Specimen Type LASHAE Sample Site Not entered O2 % 4.0 VBG pH 7.40 VBG pO2 56 H VBG HCO3 26 VBG Total CO2 28 VBG O2 Sat (Calc) 89 H VBG Base Excess 2 POC Mix VBG pCO2 Pt Tmp 42.7 O2 Delivery Device Cannula Radiography Diagnostic Testing: Radiology Impression Chest X-Ray 12/13/24 18:39 IMPRESSION: No significant change since last exam. Reading Location: [id number] Physical Exam Const alert, oriented x3, no apparent distress, average body habitus and well nourished; Negative for healthy appearing Constitutional Narrative: Older, thin, white male, sitting up in a chair at the bedside watching television, answers the phone while in the room and proceeds to talk on the phone instead of interacting with me, does not appear to have any conversational dyspnea, not toxic HEENT head/scalp atraumatic, moist oral mucous membranes and oropharynx normal HEENT Narrative: Mallampati 2 Head and Scalp: normocephalic Resp normal respiratory effort, no retractions, no use of accessory muscles and No clear to auscultation bilaterally Resp Narrative: Marked end expiratory and inspiratory wheezing noted throughout the lung batres Cardio regular rate, regular rhythm, S1 normal heart sound, S2 normal heart sound, no murmurs, no rub, no gallops and no clicks GI normal to inspection, nondistended, normoactive bowel sounds, soft to palpation and non-tender Extremity no clubbing, cyanosis or edema Extremity Narrative: 2+ pedal pulses, 2+ radial pulses Neuro oriented x3, moves all extremities and no focal motor deficits Speech: speech normal Psych Psych Narrative: Affect is slightly flat but patient is calm and makes good eye contact Assessment & Plan Assessment/Plan (1) COPD exacerbation: (2) Acute on chronic respiratory failure with hypoxia and hypercapnia: PLAN: Plan Acute on chronic hypoxic and hypercapnic respiratory failure secondary to acute exacerbation of COPD - Patient required BiPAP initially on presentation but now back to close his baseline oxygen - Exact baseline is unclear as patient initially told the ED 2 L and then told me 4 L - Will need to verify on Monday with his DME supplier - Continue scheduled and as needed nebulizers - Continue IV Solu-Medrol - Continue I-S and add Pep therapy - Add Mucinex 1200 p.o. twice daily - Obtain sputum culture if able - COVID/flu/respiratory viral panel unremarkable - Procalcitonin is completely normal suspicion is low for bacterial etiology - Previous CT of the chest does show pretty marked emphysematous changes especially apically bilaterally Chronic normocytic anemia - Counts are stable - Monitor CKD stage II - Creatinine stable - Follow Generalized weakness/debility/failure to thrive - family is having difficulty taking care of him in the current living environment - Patient likely would benefit from ECF - PT/OT/case management following - Patient does have injuries from previous falls Osteoporosis -Restart alendronate at discharge -Cont home cholecalciferol Seizure disorder -Continue home carbamazepine CAD/essential hypertension/hyperlipidemia/history of stroke/PAD -Blood pressure is markedly elevated on presentation however it does not appear patient been compliant with his medications - Continue home nifedipine 90 mg daily - Continue home metoprolol 25 mg p.o. daily - Continue home losartan 100 mg daily - Continue home clonidine 0.1 mg p.o. twice daily - Continue as needed hydralazine History of atrial fibrillation - Continue beta-joel - Patient is not on anticoagulation due to falls BPH with obstruction -continue home Flomax -Continue home finasteride GERD -continue PPI Tobacco abuse - continue nicotine patch -Recommend cessation Alzheimer's type dementia -Suspect patient needs more supervision than the currently available home -Monitor for behavior abnormalities and sundowning -May need to consider adding low-dose risperidone if problematic Depression - Continue home sertraline DVT prophylaxis -Subcu Lovenox daily CODE STATUS - Full code Charges/Coding Visit Charges Inpatient E&M: 77801 Subs Hosp L2
[2024-12-14] MEDS: Losartan Potassium 100 MG Tablet PO (08:47)
[2024-12-14] MEDS: Metoprolol Tartrate 25 MG Tablet PO (08:47)
[2024-12-14] MEDS: carBAMazepine 200 MG CPMP.12HR PO ×2 (08:47→21:15)
[2024-12-14] MEDS: Enoxaparin 40 MG/0.4 ML Syringe SC (08:48)
[2024-12-14] MEDS: Gabapentin 100 MG Capsule PO (08:48)
[2024-12-14] MEDS: NIFEdipine 90 MG Tablet PO (08:49)
[2024-12-14] MEDS: Pantoprazole Sodium 40 MG Tablet PO (08:49)
[2024-12-14] MEDS: Clopidogrel Bisulfate 75 MG Tablet PO (08:49)
[2024-12-14] MEDS: Finasteride 5 MG Tablet PO (08:50)
[2024-12-14] MEDS: Sertraline 100 MG Tablet PO (08:51)
[2024-12-14] MEDS: guaiFENesin 1,200 MG Tablet 1200 MG PO ×2 (09:59→21:15)
[2024-12-14] MEDS: Cholecalciferol (VIT D3) 25 MCG TABLET (1,000 UNITS) 50 MCG PO (09:59)
[2024-12-14] MEDS: hydrALAZINE 20 MG/ML Vial 10 MG IV (10:06)
[2024-12-14] MEDS: 0.9% Saline Lock 10 ML Syringe IV ×3 (10:06→21:16)
[2024-12-14] MEDS: Acetaminophen 325 MG Tablet 650 MG PO (12:02)
--- NOTE | 2024-12-14 14:03 | CASEMGMT ---
Social Work SW met w/pt in room in regard to prior level of function and anticipated discharge plan. PCP: Dr. Douglas Specialists: Pt states does not see any Pharmacy: [facility]--they package pt's meds for him Insurance/prescription coverage: Melvi Rubiosoramonae LNOK: Exwife, brother, two sisters, two daughters LW/POA: On file, pt's POA is exhalle Akhtar Living arrangements: As per pt, he is staying w/exwife Giovana and his brother Bigg. He states Bigg and Giovana kicked him out and brought him to the hospital. He states it is because his daughter asked for $100. Pt states they help him w/some ADLs but he mostly manages himself. He states Giovana does the cooking and cleaning. They have trailers in the same trailer park. Transportation does seem to be difficult at times. DME: Pt has O2 at home, not sure who it is through, [facility]. He has a walker, shower chair, rollator and wheelchair. Some of his DME is at [employer] and some is at his place. HHC: Pt has HHC, he does not know through, he states it's through [facility]. SNF: Pt left [facility] a week ago and d/c to [facility]. Plan: Pt wants to return to his trailer, states he won't go back to [facility]. He states he can take care of himself, just needs to get the locks fixed at his home and needs to stock food. He states the electricity is off but he can get it turned back on. He also needs his DME brought to his home from [facility]. Pt is okay w/SW calling Giovana to check on some of the information. SW called Giovana to get a better understanding. Giovana has had a stroke and explained to SW that it is difficult at times to get the words out. She was able to answer some additional questions and give some additional information. Home care/DME: She is not sure of the agency, states it is something with [facility] in the name, but states also that pt has [employer] and home delivered meals. She mentioned both [employer] and [employer] as O2 providers Pt's trailer: She states the utilities are all on, they were off when he was at [facility]. She states also the locks are fixed. She confirms there is no food but she can take pt shopping, pt has money. They usually will pay someone to take them where they need to go. Giovana states that pt was not kicked out. She states he was short of breath as he was not wearing his O2 so Bigg brought him to the hospital. She does confirm she did not want pt to give money to their daughter Michelle. He states Michelle is in recovery and gets concerned what she uses the money for--states Michelle's was killed and she started hanging out with his friends, states she got in with the wrong people. She states she had a stroke and was in a coma for three months, and their daughters Michelle and Judi sold her home, and now she has nothing. She states however she is okay w/Miles coming to stay w/her for another week or two to make sure he is fully independent. SW asked her to speak to him about this. Giovana also mentioned Ramirez from [facility] multiple times, it seems she has been helping to get things set up for pt. Plan: Pt will likely return to his trailer or Giovana's trailer. NATHANIEL on Monday will follow up w/Ramirez at [facility], and follow up w/[facility] to find out what the home care agency is. SW will also follow up w/[facility] to clarify what services pt is getting through [facility]. SW will also speak again w/pt to see if he is agreeable to return to Giovana's home for a little while longer, to ensure he can manage at home safely. NATHANIEL will also clarify home O2 provider. NATHANIEL will continue to follow. EVELIN Garcia
--- NOTE | 2024-12-14 20:08 | NURSING ---
Gave report to Magno BALBUENA RN
[2024-12-14] MEDS: Tamsulosin HCl 0.4 MG Capsule PO (21:15)
[2024-12-14] MEDS: Atorvastatin Calcium 40 MG Tablet PO (21:15)
[2024-12-14] MEDS: Mirtazapine 15 MG Tablet PO (21:15)
[2024-12-15] VITALS (12 sets, daily range): BP systolic 146–184; BP diastolic 78–110; PULSE 78–88; RESP 18–20; TEMP 36.1–36.6; O2SAT 92–95; BMI 23.6
[2024-12-15] MEDS: hydrALAZINE 20 MG/ML Vial 10 MG IV ×2 (03:46→15:01)
[2024-12-15] MEDS: 0.9% Saline Lock 10 ML Syringe IV ×2 (03:47→21:03)
[2024-12-15 05:47] LABS: Absolute Lymphocyte Count 0.82 X10^3/uL (0.83-4.51); Basophil# 0.02 X10^3/uL; Basophil% 0.2 % (0-1); Hematocrit 35.6 % (40-54); Hemoglobin 11.3 g/dL (13.0-16.5); Lymphocyte # 0.82 X10^3/ul (0.83-4.51); Lymphocyte % 9.8 % (19-41); Mean Corp Hgb Conc 31.7 g/dL (32-36); Mean Corpuscular Hgb 28.2 pg (27.0-32.0); Mean Corpuscular Volume 88.8 fL (80-94); Monocyte# 0.53 X10^3/uL; Monocyte% 6.3 % (0-10); NRBC Flagged by Analyzer 0 % (0-5); Neutrophil # 6.99 X10^3/uL (2.7-7.7); Neutrophil % 83.3 % (47-70); Platelet Count 329 K/mm3 (150-450); RBC Distribution Width CV 13.8 % (11.6-14.6); RBC Distribution Width SD 44.9 fl (35.1-43.9); Red Blood Count 4.01 M/mm3 (4.6-6.2); White Blood Count 8.4 K/mm3 (4.4-11.0)
[2024-12-15] MEDS: Methylprednisolone Sod Succ 40 MG/ML VIAL IV ×3 (06:09→21:03)
[2024-12-15 06:11] LABS: Anion Gap 12 (5-15); BUN 22 mg/dL (4-19); BUN/Creat Ratio 20.1 RATIO (10-20); Calcium,Total 9.3 mg/dL (7.6-11.0); Chloride 106 mmol/L (98-108); EST Glomerular Filtration Rate 70 (>60); Estimated Creatinine Clearance 56.14 ml/min (50-250); Glucose 97 mg/dL (70-99); Phosphorus 3.3 mg/dL (2.7-4.5); Potassium 4.1 mmol/L (3.3-5.1); Sodium Level 142 mmol/L (133-145)
[2024-12-15] MEDS: Ipratropium/Albuterol Sulfate 3 ML AMPUL.NEB INHALATION ×4 (07:00→20:13)
--- NOTE | 2024-12-15 07:43 | PCM.PN.HOSP ---
Reason for Visit Reason for Visit: Shortness of breath Subjective Subjective Patient states he short of breath and wants his home inhalers. We discussed that he gets his albuterol via the inhaler and the nebulizer relatively acute oblique however when he short of breath it may be better than via nebulizer. Patient states his breathing is terrible however his oxygenation status has improved and he is less wheezing on exam today. Objective Data Objective Data Vital Signs: Vital Signs Temp Pulse Resp BP Pulse Ox O2 Del Method O2 Flow Rate 97.1 F L 80 18 157/80 H 93 Nasal Cannula 3 12/15/24 03:38 12/15/24 07:00 12/15/24 07:00 12/15/24 06:16 12/15/24 07:00 12/15/24 07:00 12/15/24 07:00 Oxygen Flow Rate (L/min) 3 Oxygen Delivery Method Nasal Cannula Weight: 70.5 kg Body Mass Index (BMI) 23.6 Intake & Output: Intake and Output for Last 24 Hours 12/13/24 12/14/24 12/15/24 23:59 23:59 23:59 Intake Total 250 / 250 600 / 600 Output Total 650 / 650 500 / 500 Balance -400 / -400 100 / 100 Lab / Micro Data 12/15/24 05:19 12/15/24 05:19 Labs: Laboratory Results - last 24 hr 12/15/24 05:19: WBC 8.4, RBC 4.01 L, Hgb 11.3 L, Hct 35.6 L, MCV 88.8, MCH 28.2, MCHC 31.7 L, RDW Std Deviation 44.9 H, RDW Coeff of Aly 13.8, Plt Count 329, MPV 10.0, Immature Gran % (Auto) 0.400, Neut % (Auto) 83.3 H, Lymph % (Auto) 9.8 L, [place] % (Auto) 6.3, Eos % (Auto) 0.0, Baso % (Auto) 0.2, Absolute Neuts (auto) 7.0, Absolute Lymphs (auto) 0.82 L, Nucleated RBC % 0, Sodium 142, Potassium 4.1, Chloride 106, Carbon Dioxide 24.0, Anion Gap 12, BUN 22 H, Creatinine 1.10, Estim Creat Clear Calc 56.14, Est GFR (MDRD) Non-Af 70, BUN/Creatinine Ratio 20.1 H, Glucose 97, Calcium 9.3, Phosphorus 3.3, Magnesium 2.0 Micro: Microbiology 12/13/24 20:22 Mucosa - Nasopharyngeal Respiratory Panel (PCR) - Final 12/13/24 18:26 Mucosa - Nose SARS-CoV-2, Influenza & RSV (PCR) - Final Physical Exam Const alert, oriented x3, no apparent distress, average body habitus and well nourished; Negative for healthy appearing Constitutional Narrative: Older, thin, white male, sitting up in bed, watching television, nursing at bedside, not toxic HEENT head/scalp atraumatic and moist oral mucous membranes HEENT Narrative: Mallampati 2, no thrush Head and Scalp: normocephalic Resp normal respiratory effort, no retractions, no use of accessory muscles and No clear to auscultation bilaterally Resp Narrative: Still with this few scattered end expiratory and inspiratory wheezes however overall improved Auscultation: Negative for rales or rhonchi Cardio regular rate, regular rhythm, S1 normal heart sound, S2 normal heart sound, no murmurs, no rub, no gallops and no clicks GI normal to inspection, nondistended, normoactive bowel sounds, soft to palpation and non-tender Extremity no clubbing, cyanosis or edema Extremity Narrative: 2+ pedal pulses, 2+ radial pulses Neuro oriented x3, moves all extremities and no focal motor deficits Speech: speech normal Psych affect normal Psych Narrative: Pleasant, interacts appropriately Assessment & Plan Assessment/Plan (1) COPD exacerbation: (2) Acute on chronic respiratory failure with hypoxia and hypercapnia: PLAN: Plan Acute on chronic hypoxic and hypercapnic respiratory failure secondary to acute exacerbation of COPD - Patient required BiPAP initially on presentation but now back to close his baseline oxygen - Exact baseline is unclear as patient initially told the ED 2 L and then told me 4 L - Will need to verify on Monday with his DME supplier - Continue scheduled and as needed nebulizers - Continue IV Solu-Medrol - Continue I-S and Pep therapy - Continue Mucinex 1200 p.o. twice daily - Obtain sputum culture if able - Previous CT of the chest does show pretty marked emphysematous changes especially apically bilaterally - Will check home O2 eval tomorrow Chronic normocytic anemia - Counts remain stable - Monitor CKD stage II - Creatinine stable - Follow Generalized weakness/debility/failure to thrive - family is having difficulty taking care of him in the current living environment - Patient likely would benefit from ECF - PT/OT/case management following - Patient does have injuries from previous falls Osteoporosis -Restart alendronate at discharge -Cont home cholecalciferol Seizure disorder -Continue home carbamazepine CAD/essential hypertension/hyperlipidemia/history of stroke/PAD -Blood pressure is markedly elevated on presentation however it does not appear patient been compliant with his medications - Continue home nifedipine 90 mg daily - Continue home metoprolol 25 mg p.o. daily - Continue home losartan 100 mg daily - Continue home clonidine 0.1 mg p.o. 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
[2024-12-15] MEDS: carBAMazepine 200 MG CPMP.12HR PO ×2 (10:08→21:03)
[2024-12-15] MEDS: Enoxaparin 40 MG/0.4 ML Syringe SC (10:08)
[2024-12-15] MEDS: guaiFENesin 1,200 MG Tablet 1200 MG PO ×2 (10:09→21:03)
[2024-12-15] MEDS: Pantoprazole Sodium 40 MG Tablet PO (10:09)
[2024-12-15] MEDS: Finasteride 5 MG Tablet PO (10:09)
[2024-12-15] MEDS: Losartan Potassium 100 MG Tablet PO (10:09)
[2024-12-15] MEDS: Clopidogrel Bisulfate 75 MG Tablet PO (10:09)
[2024-12-15] MEDS: Gabapentin 100 MG Capsule PO (10:09)
[2024-12-15] MEDS: Sertraline 100 MG Tablet PO (10:09)
[2024-12-15] MEDS: NIFEdipine 90 MG Tablet PO (10:09)
[2024-12-15] MEDS: Cholecalciferol (VIT D3) 25 MCG TABLET (1,000 UNITS) 50 MCG PO (10:09)
[2024-12-15] MEDS: Metoprolol Tartrate 25 MG Tablet PO (10:09)
[2024-12-15] MEDS: Furosemide 40 MG/4 ML Vial IV (10:10)
[2024-12-15] MEDS: Atorvastatin Calcium 40 MG Tablet PO (21:03)
[2024-12-15] MEDS: Mirtazapine 15 MG Tablet PO (21:03)
[2024-12-15] MEDS: Tamsulosin HCl 0.4 MG Capsule PO (21:03)
[2024-12-16] VITALS (8 sets, daily range): BP systolic 151–165; BP diastolic 63–72; PULSE 64–85; RESP 16–20; TEMP 35.9–36.7; O2SAT 92–96; BMI 23.4
--- NOTE | 2024-12-16 05:33 | NURSING ---
Per panel edge painter, pt refused blood work this AM.
[2024-12-16] MEDS: 0.9% Saline Lock 10 ML Syringe IV ×2 (06:04→14:13)
[2024-12-16] MEDS: Methylprednisolone Sod Succ 40 MG/ML VIAL IV ×2 (06:04→14:13)
[2024-12-16 07:15] LABS: Anion Gap 12 (5-15); BUN 29 mg/dL (4-19); BUN/Creat Ratio 24.5 RATIO (10-20); Calcium,Total 9.4 mg/dL (7.6-11.0); Carbon Dioxide 25.5 mmol/L (21.0-32.0); Chloride 102 mmol/L (98-108); Creatinine, Serum 1.17 mg/dL (0.70-1.20); EST Glomerular Filtration Rate 65 (>60); Estimated Creatinine Clearance 52.78 ml/min (50-250); Glucose 108 mg/dL (70-99); Potassium 3.6 mmol/L (3.3-5.1); Sodium Level 140 mmol/L (133-145)
[2024-12-16] MEDS: Enoxaparin 40 MG/0.4 ML Syringe SC (09:38)
[2024-12-16] MEDS: Losartan Potassium 100 MG Tablet PO (09:38)
[2024-12-16] MEDS: guaiFENesin 1,200 MG Tablet 1200 MG PO (09:38)
[2024-12-16] MEDS: Clopidogrel Bisulfate 75 MG Tablet PO (09:38)
[2024-12-16] MEDS: Metoprolol Tartrate 25 MG Tablet PO (09:38)
[2024-12-16] MEDS: Finasteride 5 MG Tablet PO (09:39)
[2024-12-16] MEDS: Cholecalciferol (VIT D3) 25 MCG TABLET (1,000 UNITS) 50 MCG PO (09:39)
[2024-12-16] MEDS: Sertraline 100 MG Tablet PO (09:39)
[2024-12-16] MEDS: Pantoprazole Sodium 40 MG Tablet PO (09:39)
[2024-12-16] MEDS: carBAMazepine 200 MG CPMP.12HR PO (09:39)
[2024-12-16] MEDS: NIFEdipine 90 MG Tablet PO (09:39)
[2024-12-16] MEDS: Gabapentin 100 MG Capsule PO (09:43)
--- NOTE | 2024-12-16 09:54 | CASEMGMT ---
Addendum entered by Jacquie Michaud 12/16/24 10:54: Pt is active with [facility] for SN & PT. Jacquie Michaud DC Planning Asst. Original Note: Discharge Planning Per Sondra @ [facility]. Pt was accepted by [facility] and no O2 was ordered. Referral sent to [facility] to verify status and which disciplines they are providing. Jacquie Michaud DC Planning Asst.
--- NOTE | 2024-12-16 10:07 | CASEMGMT ---
Addendum entered by Mago Hayes 12/16/24 10:49: NATHANIEL let patient know that Giovana will pick him up from the hospital. Patient thanked NATHANIEL. Mago TOWNSEND Original Note: SW spoke with patient. Introduced self and role at [facility]. Patient stated he does not want to go back to Giovana's place. His brother lives there and they don't get along. Patient wants to go back to his trailer. Patient does not have a ride home. Patient said SW could call Giovana. SW called Giovana and let her know patient wants to go to his own trailer. NATHANIEL asked if it is all set up for him. Giovana said it is she just needs to take him to get food. Giovana said she can come picker tender helper patient at the hospital. SW will let patient know Giovana will pick him up. Mago TOWNSEND
--- NOTE | 2024-12-16 11:37 | PCM.DC.SUM ---
Providers Date of Admission: 12/13/24 Date of Discharge: 12/16/24 Primary Care Physician: Dr. Daija Douglas MD Reason For Visit: ACUTE ON CHRONIC HYPOXIA RF, COPD/ASTHMA EXAC Diagnosis Discharge Diagnosis (1) COPD exacerbation: Status: Chronic Code(s): J44.1 - Chronic obstructive pulmonary disease with (acute) exacerbation (2) Acute on chronic respiratory failure with hypoxia and hypercapnia: Status: Chronic Code(s): J96.21 - Acute and chronic respiratory failure with hypoxia; J96.22 - Acute and chronic respiratory failure with hypercapnia Plan Acute on chronic hypoxic and hypercapnic respiratory failure secondary to acute exacerbation of COPD - Patient required BiPAP initially on presentation but now back to close his baseline oxygen - Exact baseline is unclear as patient initially told the ED 2 L and then told me 4 L - Will need to verify on Monday with his DME supplier - Continue scheduled and as needed nebulizers - Continue IV Solu-Medrol - Continue I-S and Pep therapy - Continue Mucinex 1200 p.o. twice daily - Obtain sputum culture if able - Previous CT of the chest does show pretty marked emphysematous changes especially apically bilaterally - Will check home O2 eval tomorrow Chronic normocytic anemia - Counts remain stable - Monitor CKD stage II - Creatinine stable - Follow Generalized weakness/debility/failure to thrive - family is having difficulty taking care of him in the current living environment - Patient likely would benefit from ECF - PT/OT/case management following - Patient does have injuries from previous falls Osteoporosis -Restart alendronate at discharge -Cont home cholecalciferol Seizure disorder -Continue home carbamazepine CAD/essential hypertension/hyperlipidemia/history of stroke/PAD -Blood pressure is markedly elevated on presentation however it does not appear patient been compliant with his medications - Continue home nifedipine 90 mg daily - Continue home metoprolol 25 mg p.o. daily - Continue home losartan 100 mg daily - Continue home clonidine 0.1 mg p.o. twice daily - Continue as needed hydralazine History of atrial fibrillation - Continue beta-joel - Patient is not on anticoagulation due to falls BPH with obstruction -continue home Flomax -Continue home finasteride GERD -continue PPI Tobacco abuse -continue nicotine patch -Recommend cessation Alzheimer's type dementia -Suspect patient needs more supervision than the currently available home -Monitor for behavior abnormalities and sundowning -May need to consider adding low-dose risperidone if problematic Depression - Continue home sertraline DVT prophylaxis -Subcu Lovenox daily CODE STATUS - Full code Medications at Discharge Home Medications tamsulosin 0.4 mg capsule 0.4 mg PO QHS bph 01/26/14 finasteride 5 mg tablet 5 mg PO DAILY prostate 11/14/14 atorvastatin 40 mg tablet 40 mg PO QHS Cholesterol 09/23/15 mirtazapine 15 mg tablet 15 mg PO QHS anti depressant 08/16/19 clopidogrel 75 mg tablet 75 mg PO DAILY blood thinner 10/25/19 losartan 100 mg tablet 100 mg PO DAILY Blood pressure 08/19/21 pantoprazole 40 mg tablet,delayed release 40 mg PO DAILY GERD 08/19/21 nifedipine 90 mg tablet,extended release 90 mg PO DAILY blood pressure 11/25/21 alendronate 70 mg tablet 70 mg PO QWEEK OSTEOPROSIS #1 TAB 11/30/21 metoprolol tartrate 25 mg tablet 25 mg PO DAILY Blood pressure 03/30/23 sennosides 8.6 mg-docusate sodium 50 mg tablet (Stool Softener-Stimulant Laxative) 2 tab PO BID PRN PRN Constipation #0 tabs 04/04/23 albuterol sulfate 90 mcg/actuation aerosol inhaler 1 puff inhalation Q8H SOB 08/22/23 carbamazepine 200 mg tablet,extended release,12 hr 200 mg PO Q12H SEIZURES 08/22/23 cholecalciferol (vitamin D3) 50 mcg (2,000 unit) tablet 50 mcg PO DAILY SUPPLEMENT 08/22/23 sertraline 100 mg tablet 100 mg PO DAILY DEPRESSION 08/22/23 ergocalciferol (vitamin D2) 1,250 mcg (50,000 unit) capsule (Vitamin D2) 1,250 mcg PO Q7D SUPPLEMENT #0 caps 04/10/24 clonidine HCl 0.1 mg tablet 0.1 mg PO TID HTN #0 tabs 09/02/24 dextromethorphan-guaifenesin ER 60 mg-1,200 mg tab,extend release,12hr 1 tab PO BID COUGH 7 days #14 tabs 09/02/24 nicotine 14 mg/24 hr daily transdermal patch 14 mg transdermal DAILY NICOTINE 28 days #28 ea 09/02/24 prednisone 20 mg tablet 40 mg (2 x 20 mg) PO BREAKFAST 1 day #2 tabs 09/02/24 acetaminophen 500 mg tablet 1,000 mg PO Q8 PRN fever or pain 12/13/24 albuterol sulfate 2.5 mg/3 mL (0.083 %) solution for nebulization 2.5 mg continuous nebulization DAILY SHORTNESS OF BREATH 12/13/24 clonidine 0.2 mg/24 hr weekly transdermal patch 1 patch topical QWEEK BLOOD PRESSURE 12/13/24 gabapentin 100 mg capsule 100 mg PO DAILY PAIN 12/13/24 nicotine 21 mg/24 hr daily transdermal patch (Nicoderm CQ) 1 patch transdermal DAILY #14 ea 12/16/24 prednisone 10 mg tablet 10 mg PO DAILY #40 tabs 12/16/24 Hospital Course Operations None Procedures EKG and - (Chest x-ray) Summary of Care Provided Minutes Spent on Discharge: 38 Hospital Course: Mr. Sifuentes is a 74-year-old white male who presented to the emergency department at [facility] on 12/13/2024 with shortness of breath and wheezing. He has a history of chronic hypoxic respiratory failure requiring 2 L at baseline [id number]. Patient reported that about the last 2 days prior to presentation he had increasing fatigue, malaise, and severe wheezing with tightness in his chest. He feels that the heat is predisposing him to exacerbation of his COPD. He was recently raised from [facility] and has been at home. There are multiple social issues with regards to him going back home which have been addressed by social work and remedied. At the time of admission he was requiring 4 L nasal cannula to maintain oxygen saturations. He had considerable wheeze on exam. Vital signs on presentation showed a temperature of 98.3 heart rate 65, respiratory was 22, initial blood pressure was 226/90 with a repeat of 185/72. Pulse ox was 100% on 3-1/2 to 4 L nasal cannula. CBC showed a chronic stable anemia but no white count or left shift. His chemistry panel was overtly unremarkable. Chest x-ray showed stability when compared to previous exam. We obtained COVID/flu/RSV which was unremarkable. Respiratory viral panel was unremarkable. Blood cultures were negative at 48 hours. Patient did not report any significant changes in sputum production therefore he was admitted and treated for COPD exacerbation without antibiotics. He was placed on IV Solu-Medrol, aggressive pulmonary toilet, I-S, and Acapella. Slowly with time his oxygenation improved to the point where he was back on 2 L nasal cannula. We were able to verify with his DME supplier that this is his baseline oxygen requirement. He was evaluated for his oxygen status at the time of discharge both at rest and with exertion. He was requiring 2 L both at rest and with exertion. No extra supplemental oxygen will be required. He already has DuoNebs at home and is on inhalers. We did place him on a very slow prednisone taper. His wheezing significantly improved throughout his hospital course and was minimal at the time of discharge. He was able to be discharged home in stable condition on 12/16/2024. Assistance had been provided and follow-up was arranged by case management and social work prior to discharge. Discharge diagnoses: Acute on chronic hypoxic and hypercapnic respiratory failure secondary to acute exacerbation of COPD Chronic normocytic anemia CKD stage II Generalized weakness Debility Failure to thrive Osteoporosis Seizure disorder CAD Essential hypertension Hyperlipidemia History of stroke Peripheral arterial disease History of A-fib BPH with obstruction GERD Tobacco abuse Alzheimer's type dementia Depression Physical Exam Const alert, oriented x3, no apparent distress, average body habitus, no limitations and well nourished; Negative for healthy appearing Constitutional Narrative: Older, thin, white male, sitting up in a chair at the bedside, watching television, nursing at bedside, not toxic General Appearance: cooperative, comfortable, well kempt and well developed Exam Limitations: no limitations HEENT normocephalic, head/scalp atraumatic and moist oral mucous membranes HEENT Narrative: no thrush Eyes conjunctivae normal Eyes Narrative: no icterus Neck supple Neck Narrative: trachea midline Resp normal respiratory effort, no retractions, no use of accessory muscles and No clear to auscultation bilaterally Resp Narrative: scattered end expiratory and inspiratory wheezes however overall improved Auscultation: wheezes; Negative for rales or rhonchi Cardio regular rate, regular rhythm, S1 normal heart sound, S2 normal heart sound, no murmurs, no rub, no gallops and no clicks GI normal to inspection, nondistended, normoactive bowel sounds, soft to palpation and non-tender Extremity no clubbing, cyanosis or edema Extremity Narrative: 2+ pedal pulses, 2+ radial pulses Skin skin turgor normal, no jaundice, no petechiae and no mottling Neuro oriented x3, moves all extremities and no focal motor deficits Speech: speech normal Psych affect normal Psych Narrative: Pleasant, interacts appropriately Weight / BMI Weight Weight: 70.1 kg Body Mass Index (BMI) 23.4 ABG / Lab / Microbiology Data 12/15/24 05:19 12/16/24 06:35 Laboratory: Laboratory Results - last 24 hr 12/16/24 06:35: Sodium 140, Potassium 3.6, Chloride 102, Carbon Dioxide 25.5, Anion Gap 12, BUN 29 H, Creatinine 1.17, Estim Creat Clear Calc 52.78, Est GFR (MDRD) Non-Af 65, BUN/Creatinine Ratio 24.5 H, Glucose 108 H, Calcium 9.4 Microbiology: Microbiology 12/13/24 20:45 Blood Culture (Wb) - Left Hand Blood Culture - Preliminary No growth in 48 hours. 12/13/24 18:26 Blood Culture (Wb) - Left Hand Blood Culture - Preliminary No growth in 48 hours. 12/13/24 20:22 Mucosa - Nasopharyngeal Respiratory Panel (PCR) - Final 12/13/24 18:26 Mucosa - Nose SARS-CoV-2, Influenza & RSV (PCR) - Final D/C Instructions Discharge Diet: Low fat / Low cholesterol Discharge Activity: Return to Normal Activity DC O2, CPAP, BIPAP Needs Home O2 Discharge instructions: Yes Type of respiratory needs?: Oxygen Oxygen frequency: Continuous Continuous oxygen liters per minute: 2 DC home with Oxygen: Yes Home O2 MD Review: I have reviewed the oxygen testing, and the patient qualifies for home oxygen equipment and portability. The patient is mobile in the home and the community. Meaningful Use Info Meaningful Use Meaningful Use Diagnoses (Choose all that apply): None applicable Ischemic Stroke Statin Dosing Therapy Reference: STATIN DOSE THERAPY REFERENCE: * Patients > 75 years receive moderate or high dose statin therapy. * Patients 75 years or YOUNGER should receive HIGH intensity statin dose unless contraindicated. You will be required to document reason for non-treatment if statin daily dose does not meet guidelines. HIGH DOSE STATIN THERAPY DAILY Atorvastatin > than or = to 40 mg Rosuvastatin > than or = to 20 mg Amlodipine + Atorvastatin > than or = to 2.5/40 mg Ezetimibe + Simvastatin 10/80 mg Simvastatin 80mg Discharge Plan Admission Admit Date/Time: 12/13/24 20:07 Primary Reason for Your Visit: Shortness of breath Attending Provider: Lisha Talamantes Primary Care Provider: Daija Douglas Consulting Providers: Shilpa Contreras Instructions Additional Instructions / Restrictions: 1. Avoid being out in the heat and humidity. Try to be in an air conditioned environment as much as possible. If you must go out try to do so in the am or pm Discharge Orders/Prescriptions Prescriptions: New prednisone 10 mg tablet 10 mg PO DAILY Qty: 40 0RF Rx Instructions: 4 tablets x 4 days, 3 tablets x 4 days, 2 tablets x 4 days, 1 tablet x 4 days nicotine [Nicoderm CQ] 21 mg/24 hr patch 24 hour 1 patch transdermal DAILY Qty: 14 0RF Continued albuterol sulfate 90 mcg/actuation HFA aerosol inhaler 1 puff inhalation Q8H carbamazepine 200 mg tablet extended release 12 hr 200 mg PO Q12H sertraline 100 mg tablet 100 mg PO DAILY cholecalciferol (vitamin D3) 50 mcg (2,000 unit) tablet 50 mcg PO DAILY tamsulosin 0.4 MG capsule 0.4 mg PO QHS Patient Comments: Prostate and urine finasteride 5 MG tablet 5 mg PO DAILY Patient Comments: prostate atorvastatin 40 MG tablet 40 mg PO QHS Patient Comments: CHOLESTEROL mirtazapine 15 MG tablet 15 mg PO QHS clopidogrel 75 MG tablet 75 mg PO DAILY losartan 100 mg tablet 100 mg PO DAILY pantoprazole 40 mg tablet,delayed release (DR/EC) 40 mg PO DAILY nifedipine 90 mg tablet extended release 90 mg PO DAILY alendronate 70 mg tablet 70 mg PO QWEEK Qty: 1 0RF metoprolol tartrate 25 mg tablet 25 mg PO DAILY sennosides-docusate sodium [Stool Softener-Stimulant Laxat] 8.6-50 mg Tablet 2 tab PO BID PRN PRN (Reason: Constipation) Qty: 0 0RF albuterol sulfate 2.5 mg /3 mL (0.083 %) solution for nebulization 2.5 mg continuous nebulization DAILY Patient Comments: [NO ORIGINAL SIG] clonidine 0.2 mg/24 hr patch weekly 1 patch topical QWEEK Patient Comments: HAS ONE ON NOW gabapentin 100 mg capsule 100 mg PO DAILY acetaminophen 500 mg Tablet 1,000 mg PO Q8 PRN (Reason: fever or pain) ergocalciferol (vitamin D2) [Vitamin D2] 1,250 mcg (50,000 unit) Capsule 1,250 mcg PO Q7D Qty: 0 0RF clonidine HCl 0.1 mg Tablet 0.1 mg PO TID Qty: 0 0RF Rx Instructions: Hold for heart less than 50 or systolic blood pressure less than 140 mmHg. dextromethorphan-guaifenesin 60-1,200 mg tablet extended release 12 hr 1 tab PO BID 7 Days Qty: 14 0RF nicotine 14 mg/24 hr Patch 24 Hour 14 mg transdermal DAILY 28 Days Qty: 28 0RF prednisone 20 mg Tablet 40 mg PO BREAKFAST 1 Days Qty: 2 0RF Rx Instructions: For 1 more day tomorrow 09/03/2024 Referrals / Follow Up: Daija Douglas MD [Primary Care Provider] - Within 1 Week (Please call and schedule appointment for hospital follow-up) Disposition Disposition (needs filled in before D/C Order can be placed): Home, Self Care Charges/Coding Visit Charges Inpatient E&M: 70880 Disch Hosp >30min
[2024-12-16] MEDS: Ipratropium/Albuterol Sulfate 3 ML AMPUL.NEB INHALATION ×2 (12:00→20:44)
--- NOTE | 2024-12-16 13:28 | CASEMGMT ---
Discharge Planning Discharge Summary sent to [facility]. Jacquie Michaud DC Planning Asst.
== END 2024-12-16 22:21 | disposition home health service (06) | DRG 189 ==
LOC: ED 20:09 → PCU 21:03
PROVIDERS: Admitting Provider Family Medicine; Emergency Provider Emergency Medicine; PCP Internal Medicine; Visit Provider Internal Medicine
DX: J96.21 Acute and chronic respiratory failure with hypoxia (principal); N13.8 Other obstructive and reflux uropathy; J44.1 Chronic obstructive pulmonary disease with (acute) exacerbation; J45.901 Unspecified asthma with (acute) exacerbation; F02.84 Dementia in other diseases classified elsewhere, unspecified severity, with anxiety; F02.83 Dementia in other diseases classified elsewhere, unspecified severity, with mood disturbance; D50.9 Iron deficiency anemia, unspecified; F17.210 Nicotine dependence, cigarettes, uncomplicated; R62.7 Adult failure to thrive; Z99.81 Dependence on supplemental oxygen; I48.0 Paroxysmal atrial fibrillation; G30.9 Alzheimer's disease, unspecified; G40.909 Epilepsy, unspecified, not intractable, without status epilepticus; I73.9 Peripheral vascular disease, unspecified; I12.9 Hypertensive chronic kidney disease with stage 1 through stage 4 chronic kidney disease, or unspecified chronic kidney disease; J96.22 Acute and chronic respiratory failure with hypercapnia; N18.2 Chronic kidney disease, stage 2 (mild); E78.5 Hyperlipidemia, unspecified; I25.10 Atherosclerotic heart disease of native coronary artery without angina pectoris; I44.0 Atrioventricular block, first degree; K21.9 Gastro-esophageal reflux disease without esophagitis; G47.33 Obstructive sleep apnea (adult) (pediatric); R53.81 Other malaise; M81.0 Age-related osteoporosis without current pathological fracture; R53.1 Weakness; G89.29 Other chronic pain; N40.1 Benign prostatic hyperplasia with lower urinary tract symptoms; Z95.5 Presence of coronary angioplasty implant and graft; Z87.19 Personal history of other diseases of the digestive system; Z86.73 Personal history of transient ischemic attack (TIA), and cerebral infarction without residual deficits; Z79.51 Long term (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 of inhaled steroids; Z79.02 Long term (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 of antithrombotics/antiplatelets; Z79.899 Other long term (current) drug therapy; Z87.898 Personal history of other specified conditions; Z91.148 Patient's other noncompliance with medication regimen for other reason; Z91.199 Patient's noncompliance with other medical treatment and regimen due to unspecified reason; Z68.23 Body mass index [BMI] 23.0-23.9, adult
CPT/HCPCS: 36415; 71045; 80048; 80053; 82803; 83735; 84100; 84145; 85025; 85610; 87040; 87631; 87633; 93005; 94640; 97116; 97162; 97166; 97530; 97535; 99252; 99285; A4216; G0463; J1938

== ENCOUNTER 2024-12-17 15:51 | Inpatient (IN) | payer MEDICARE, MEDICAID, SELFPAY ==
[2024-12-17] VITALS (12 sets, daily range): BP systolic 164–201; BP diastolic 66–119; PULSE 63–83; RESP 16–28; TEMP 36.1–36.9; O2SAT 96–99; BMI 24.5
--- NOTE | 2024-12-17 15:53 | EKG12_ITS ---
Test Reason : STROKE ALERT Blood Pressure : */* mmHG Vent. Rate : 70 BPM Atrial Rate : * BPM P-R Int : * ms QRS Dur : 76 ms QT Int : 370 ms P-R-T Axes : * 66 80 degrees QTcB Int : 399 ms Atrial fibrillation Septal infarct , age undetermined Abnormal ECG Confirmed by DIMAS RANDALL, NATE ([id number]), food editor RAE NATH ([id number]) on 12/18/2024 1:45:16 PM Referred By: Confirmed By: NATE COCHRAN MD
--- NOTE | 2024-12-17 15:53 | CT_ITS ---
PROCEDURE: STROKE BRAIN/HEAD WITHOUT CONT 12/17/2024 REASON FOR EXAM: NEURO DEFICIT, ACUTE, STROKE SUSPECTED TECHNIQUE: STROKE BRAIN/HEAD WITHOUT CONT Coronal and Sagittal reconstruction series were provided. One or more dose reduction techniques were used (e.g., Automated exposure control, adjustment of the mA and/or kV according to patient size, use of iterative reconstruction technique. RADIATION DOSE SUMMARY: CTDlvol: 44.99 mGy DLP: 846.73 mGycm COMPARISON: CT head without contrast, 04/06/2024. FINDINGS: There is moderate diffuse cerebral atrophy with concomitant ventriculomegaly. There is diffuse low-density of the periventricular white matter consistent with chronic ischemic white matter disease. There is a chronic lacunar infarction in the right thalamus. There is no evidence of acute intracranial hemorrhage or infarction. There are no abnormal intracranial masses or mass effects. The ventricular system and basilar cisterns are unremarkable. There is calcific vascular disease of the intracranial portion of both internal carotid arteries and the left vertebral artery. The skull base and calvarium are normal. There is right maxillary sinusitis and left ethmoiditis. The remaining paranasal sinuses and mastoid air cells are unremarkable. The intraorbital contents are normal. The visualized extracranial soft tissues are normal. CT/STROKE Brain/Head without Cont IMPRESSION: 1. Cerebral atrophy. 2. No evidence of acute intracranial pathology. 3. Other findings as noted. Findings were called to the [facility] emergency department on 12/17/2024 at 4:35 p.m. Reading Location: [id number]
--- NOTE | 2024-12-17 15:53 | CT_ITS ---
PROCEDURE: STROKE CTA HEAD AND NECK W/CON 12/17/2024 REASON FOR EXAM: NEURO DEFICIT, ACUTE, STROKE SUSPECTED TECHNIQUE: STROKE CTA HEAD AND NECK W/CON Multiplanar Sagittal and Coronal images were obtained. CONTRAST: Isovue 370 VOLUME: 98 mL One or more dose reduction techniques were used (e.g., Automated exposure control, adjustment of the mA and/or kV according to patient size, use of iterative reconstruction technique). RADIATION DOSE SUMMARY: CTDlvol: 24.91+ 18.91 mGy DLP: 34.73 mGycm COMPARISON: 04/06/[address] FINDINGS: Atherosclerosis of a patent aortic arch. Atherosclerosis of the bilateral common carotid arteries without hemodynamically significant stenosis. Atherosclerosis of the right carotid bulb and proximal right internal carotid artery with 75% stenosis. Atherosclerosis of the left carotid bulb and proximal left internal carotid artery with 50% stenosis. Atherosclerosis of the bilateral cervical vertebral arteries with less than 50% stenosis. Atherosclerosis of the carotid siphons with less than 50% stenosis. Hypoplastic A1 segment of the right anterior cerebral artery, an anatomic variant. The remainder of the anterior cerebral circulation is patent. The middle cerebral and posterior cerebral arteries are patent the [id number] is intact. The intracranial vertebrobasilar system is patent. Biapical scarring. Biapical emphysema. CT/STROKE CTA Head AND Neck W/Con IMPRESSION: Right ICA stenosis of 75%. Left ICA stenosis of 50%. Additional atherosclerosis as above. Biapical pulmonary scarring and emphysema. Reading Location: [place] [id number]
--- NOTE | 2024-12-17 15:54 | RAD_ITS ---
PROCEDURE: CHEST PA AND LATERAL 12/17/2024 REASON FOR EXAM: AMS TECHNIQUE: CHEST PA AND LATERAL COMPARISON: 12/13/2024. FINDINGS: The heart is normal in size. The lungs are hyperaerated. Degenerative changes of the spine. Persistent bilateral scarring. No pleural effusion or pneumothorax. No acute osseous abnormalities. RAD/Chest PA and Lateral IMPRESSION: Hyperaerated lungs which can suggest COPD. Stable scarring. Reading Location: [place] [address]
--- NOTE | 2024-12-17 16:09 | EX.ED.DYSGE1 ---
HPI History of Present Illness Chief Complaint: Stroke Alert Narrative Narrative: Patient is a 74-year-old male with past medical history of COPD, BPH, ulcer colitis, peripheral vascular disease, atrial fibrillation, PJ, hypercholesteremia who presented to the emergency department the chief complaint of altered mental status and right-sided facial droop. Per EMS he was recently discharged from the hospital with a COPD exacerbation. EMS states that according to his he was doing well until this afternoon he was not following commands and had drooling with facial droop therefore they called EMS to have her brought here for further evaluation management. Per EMS he is not a blood thinner medications. They state that he is not following commands. They state his last known well was around noon according to at home. [facility] Medical History Weakness Debility Failure to thrive Compression fx, lumbar spine Hypertension Falls Hypertension Closed fracture of right superior pubic ramus Multiple falls Compression fracture of thoracic vertebra History of atrial fibrillation Iron deficiency anemia Chronic respiratory failure with hypoxia Osteoporosis Lumbar compression fracture Compression fracture Obstructive sleep apnea Hyperlipidemia Asthma Peripheral arterial occlusive disease Seizure disorder Chronic obstructive pulmonary disease Coronary artery disease Lupus anticoagulant disorder BPH (benign prostatic hyperplasia) Ulcerative colitis Peripheral vascular disease Anxiety COPD (chronic obstructive pulmonary disease) with emphysema Closed fracture of right inferior pubic ramus Acute UTI COPD (chronic obstructive pulmonary disease) UTI (urinary tract infection) Depression Diabetes Kidney stones Chronic pain Pancreatitis On home oxygen therapy Irregular heart beat Atrial fibrillation Stroke/cerebrovascular accident Smoker Falls frequently Seizures Sleep apnea COPD (chronic obstructive pulmonary disease) Asthma High cholesterol Tobacco abuse Home Medications ?Medication ?Instructions ?Recorded ?Last Taken ?Type tamsulosin 0.4 mg capsule 0.4 mg PO QHS bph 01/26/14 03/28/23 History finasteride 5 mg tablet 5 mg PO DAILY prostate 11/14/14 12/13/24 08:58 History atorvastatin 40 mg tablet 40 mg PO QHS Cholesterol 09/23/15 12/12/24 History mirtazapine 15 mg tablet 15 mg PO QHS anti depressant 08/16/19 12/12/24 20:59 History clopidogrel 75 mg tablet 75 mg PO DAILY blood thinner 10/25/19 12/13/24 History losartan 100 mg tablet 100 mg PO DAILY Blood pressure 08/19/21 12/13/24 08:58 History pantoprazole 40 mg tablet,delayed 40 mg PO DAILY GERD 08/19/21 12/13/24 08:00 History release nifedipine 90 mg tablet,extended 90 mg PO DAILY blood pressure 11/25/21 12/13/24 08:59 History release alendronate 70 mg tablet 70 mg PO QWEEK OSTEOPROSIS #1 TAB 11/30/21 12/09/24 Rx metoprolol tartrate 25 mg tablet 25 mg PO DAILY Blood pressure 03/30/23 12/13/24 08:59 History sennosides 8.6 mg-docusate sodium 2 tab PO BID PRN PRN Constipation 04/04/23 Unknown Rx 50 mg tablet (Stool #0 tabs Softener-Stimulant Laxative) albuterol sulfate 90 mcg/actuation 1 puff inhalation Q8H SOB 08/22/23 12/13/24 08:53 History aerosol inhaler carbamazepine 200 mg 200 mg PO Q12H SEIZURES 08/22/23 12/13/24 08:55 History tablet,extended release,12 hr cholecalciferol (vitamin D3) 50 50 mcg PO DAILY SUPPLEMENT 08/22/23 12/13/24 History mcg (2,000 unit) tablet sertraline 100 mg tablet 100 mg PO DAILY DEPRESSION 08/22/23 Unknown History ergocalciferol (vitamin D2) 1,250 1,250 mcg PO Q7D SUPPLEMENT #0 caps 04/10/24 12/13/24 08:58 Rx mcg (50,000 unit) capsule (Vitamin D2) clonidine HCl 0.1 mg tablet 0.1 mg PO TID HTN #0 tabs 09/02/24 Unknown Rx dextromethorphan-guaifenesin ER 60 1 tab PO BID COUGH 7 days #14 tabs 09/02/24 12/13/24 Rx mg-1,200 mg tab,extend release,12hr nicotine 14 mg/24 hr daily 14 mg transdermal DAILY NICOTINE 09/02/24 Unknown Rx transdermal patch 28 days #28 ea prednisone 20 mg tablet 40 mg (2 x 20 mg) PO BREAKFAST 1 09/02/24 Unknown Rx day #2 tabs acetaminophen 500 mg tablet 1,000 mg PO Q8 PRN fever or pain 12/13/24 Unknown History albuterol sulfate 2.5 mg/3 mL 2.5 mg continuous nebulization 12/13/24 12/13/24 History (0.083 %) solution for nebulization DAILY SHORTNESS OF BREATH clonidine 0.2 mg/24 hr weekly 1 patch topical QWEEK BLOOD 12/13/24 Unknown History transdermal patch PRESSURE gabapentin 100 mg capsule 100 mg PO DAILY PAIN 12/13/24 12/13/24 08:58 History nicotine 21 mg/24 hr daily 1 patch transdermal DAILY #14 ea 12/16/24 Unknown Rx transdermal patch (Nicoderm CQ) prednisone 10 mg tablet 10 mg PO DAILY #40 tabs 12/16/24 Unknown Rx Allergy/AdvReac Type Severity Reaction Status Date / Time No Known Allergies Allergy Verified 04/06/24 11:12 Family History Mother Heart disease CVA (cerebral vascular accident) Hypertension Father Heart disease CVA (cerebral vascular accident) Hypertension Surgical History S/P arterial stent History of appendectomy Social History household members: family housing: other details: [facility] 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 Smoking Status: Current every day smoker tobacco type: cigarettes alcohol intake: former details: Former alcoholic quit several years ago substance use type: does not use caffeine: Yes Type: coffee Number of servings: 3 ROS ROS ED ROS Narrative Review of systems unobtainable from the patient as he would just stare at me and not talk therefore acute care caveat applies EXAM Physical Exam Narrative Exam Narrative: General: Patient sitting in the, at rest comfortably did not appear to be in acute distress Head: Atraumatic, normocephalic Eyes: PERRL bilaterally, EOMI bilateral, no conjunctival injection noted Neck: Soft, supple, trachea midline Cardiovascular: Regular rate and rhythm no murmurs gallops rubs noted Respiratory: Clear to auscultation bilaterally Abdomen: Soft, nondistended Extremities: Radial pulses +2/4 in the bilateral extremities, patient has diffuse weakness in his bilateral upper and lower extremities +3/5 noted in the upper and lowers Neurological: Patient was following commands he was able to close his eyes he was able to hold his arms up without any drift. Patient was unable to talk for me and I did not appreciate a facial droop on exam Skin: Warm, dry, intact no rashes lesions noted Const Vital Signs: 12/17/24 15:53 12/17/24 16:11 12/17/24 16:21 Temperature 98.5 F 98.5 F Temperature Source Oral Oral Pulse Rate 68 70 Respiratory Rate 20 H 18 Blood Pressure 184/76 H 184/70 H Blood Pressure Mean 112 108 Pulse Ox 98 97 98 Oxygen Delivery Method Room Air Nasal Cannula Nasal Cannula Oxygen Flow Rate (L/min) 2 2 12/17/24 16:23 12/17/24 16:30 12/17/24 17:00 Temperature Temperature Source Pulse Rate 67 69 71 Respiratory Rate Blood Pressure 173/74 H 169/83 H 178/80 H Blood Pressure Mean 107 111 112 Pulse Ox 98 98 98 Oxygen Delivery Method Nasal Cannula Oxygen Flow Rate (L/min) 2 12/17/24 17:30 Temperature Temperature Source Pulse Rate 65 Respiratory Rate Blood Pressure 169/66 H Blood Pressure Mean 100 Pulse Ox 99 Oxygen Delivery Method Nasal Cannula Oxygen Flow Rate (L/min) 2 MDM MDM MDM Narrative Medical decision making narrative: Patient is a 74-year-old male who presented to the emergency department via EMS prehospital stroke alert called. On the differential diagnose includes but not limited to hypoglycemia which patient's blood glucose was normal, intracranial hemorrhage, CVA, posterior circulation stroke, large vessel occlusion, electrolyte abnormality, ACS. Once workup is obtained reviewed he will be reevaluated. Patient be given IV fluids for hydration. Patient is not tenecteplase candidate as his last known well was around noon and he is outside of the 48-hour window he was evaluated by teleneurologist Dr. Art who agrees with this plan. Patient CBC reviewed and showed no evidence leukocytosis white blood count 8.5, he was 12.4, platelet count was 417. Patient's coagulation studies pending, chemistries pending as well. Patient's EKG reviewed and showed atrial fibrillation with a rate of 70 beats per minutes. Patient's chest x-ray reviewed by myself's official read from radiology still pending however no appreciable cardiopulmonary processes noted. Patient CT head brain without contrast showed cerebral atrophy no evidence of acute intracranial pathology. Patient's CTA head and neck reviewed and showed right ICA stenosis 75% left ICA stenosis of 50% no evidence of large vessel occlusion. Will discuss case with hospitalist for admission for further stroke workup. Patient given 325 mg aspirin. Discussed case with hospitalist Dr. Patel who accept patient for admission. Patient vitals reviewed spinal course concerns answered. Lab Data Labs: Laboratory Results - last 24 hr 12/17/24 16:00 WBC 8.5 RBC 4.45 L Hgb 12.4 L Hct 39.6 L MCV 89.0 MCH 27.9 MCHC 31.3 L RDW Std Deviation 45.6 H RDW Coeff of Aly 14.0 Plt Count 417 MPV 10.0 Immature Gran % (Auto) 0.400 Neut % (Auto) 77.5 H Lymph % (Auto) 12.1 L Calvert % (Auto) 7.8 Eos % (Auto) 1.1 Baso % (Auto) 1.1 H Absolute Neuts (auto) 6.6 Absolute Lymphs (auto) 1.03 Nucleated RBC % 0 Radiography Diagnostic Testing: Clinical Impression(s) from Imaging Studies Brain CT 12/17/24 15:53 IMPRESSION: 1. Cerebral atrophy. 2. No evidence of acute intracranial pathology. 3. Other findings as noted. Findings were called to the [facility] emergency department on 12/17/2024 at 4:35 p.m. Reading Location: [id number] Head/Neck CTA 12/17/24 15:53 IMPRESSION: Right ICA stenosis of 75%. Left ICA stenosis of 50%. Additional atherosclerosis as above. Biapical pulmonary scarring and emphysema. Reading Location: [id number] Chest X-Ray 12/17/24 15:54 IMPRESSION: Hyperaerated lungs which can suggest COPD. Stable scarring. Reading Location: [id number] Discharge Plan Triage Chief Complaint: Stroke Alert ED Provider: Seth Pritchard Dx/Rx/DC Orders Clinical Impression: Aphasia, COPD exacerbation, Hypertension, Acute on chronic respiratory failure with hypoxia and hypercapnia, Facial droop Prescriptions: No Action albuterol sulfate 90 mcg/actuation HFA aerosol inhaler 1 puff inhalation Q8H carbamazepine 200 mg tablet extended release 12 hr 200 mg PO Q12H sertraline 100 mg tablet 100 mg PO DAILY cholecalciferol (vitamin D3) 50 mcg (2,000 unit) tablet 50 mcg PO DAILY tamsulosin 0.4 MG capsule 0.4 mg PO QHS Patient Comments: Prostate and urine finasteride 5 MG tablet 5 mg PO DAILY Patient Comments: prostate atorvastatin 40 MG tablet 40 mg PO QHS Patient Comments: CHOLESTEROL mirtazapine 15 MG tablet 15 mg PO QHS clopidogrel 75 MG tablet 75 mg PO DAILY losartan 100 mg tablet 100 mg PO DAILY pantoprazole 40 mg tablet,delayed release (DR/EC) 40 mg PO DAILY nifedipine 90 mg tablet extended release 90 mg PO DAILY alendronate 70 mg tablet 70 mg PO QWEEK Qty: 1 0RF metoprolol tartrate 25 mg tablet 25 mg PO DAILY sennosides-docusate sodium [Stool Softener-Stimulant Laxat] 8.6-50 mg Tablet 2 tab PO BID PRN PRN (Reason: Constipation) Qty: 0 0RF albuterol sulfate 2.5 mg /3 mL (0.083 %) solution for nebulization 2.5 mg continuous nebulization DAILY Patient Comments: [NO ORIGINAL SIG] clonidine 0.2 mg/24 hr patch weekly 1 patch topical QWEEK Patient Comments: HAS ONE ON NOW gabapentin 100 mg capsule 100 mg PO DAILY acetaminophen 500 mg Tablet 1,000 mg PO Q8 PRN (Reason: fever or pain) prednisone 10 mg tablet 10 mg PO DAILY Qty: 40 0RF Rx Instructions: 4 tablets x 4 days, 3 tablets x 4 days, 2 tablets x 4 days, 1 tablet x 4 days nicotine [Nicoderm CQ] 21 mg/24 hr patch 24 hour 1 patch transdermal DAILY Qty: 14 0RF ergocalciferol (vitamin D2) [Vitamin D2] 1,250 mcg (50,000 unit) Capsule 1,250 mcg PO Q7D Qty: 0 0RF clonidine HCl 0.1 mg Tablet 0.1 mg PO TID Qty: 0 0RF Rx Instructions: Hold for heart less than 50 or systolic blood pressure less than 140 mmHg. dextromethorphan-guaifenesin 60-1,200 mg tablet extended release 12 hr 1 tab PO BID 7 Days Qty: 14 0RF nicotine 14 mg/24 hr Patch 24 Hour 14 mg transdermal DAILY 28 Days Qty: 28 0RF prednisone 20 mg Tablet 40 mg PO BREAKFAST 1 Days Qty: 2 0RF Rx Instructions: For 1 more day tomorrow 09/03/2024 Primary Care Provider: Daija Douglas Referrals: Daija Douglas MD [Primary Care Provider] - Print Language: Danish Disposition Disposition: Acute Care Hospital [facility]
[2024-12-17 16:18] LABS: Hematocrit 39.6 % (40-54); Hemoglobin 12.4 g/dL (13.0-16.5); Immature Granulocytes Count 0.030 X10^3/uL (0.0-0.0); Mean Corp Hgb Conc 31.3 g/dL (32-36); Mean Corpuscular Volume 89.0 fL (80-94); Mean Platelet Vol. 10.0 fl (6.2-12.0); NRBC Flagged by Analyzer 0 % (0-5); Platelet Count 417 K/mm3 (150-450); RBC Distribution Width CV 14.0 % (11.6-14.6); RBC Distribution Width SD 45.6 fl (35.1-43.9); Red Blood Count 4.45 M/mm3 (4.6-6.2); White Blood Count 8.5 K/mm3 (4.4-11.0)
[2024-12-17] MEDS: 0.9% Normal Saline (1000mL) 1,000 ML 999 ML IV (17:21)
--- NOTE | 2024-12-17 17:36 | PCM.HP.STD ---
[facility] - General General Date of Admission: 12/17/24 Date of Service: 12/17/24 Chief Complaint: Dysarthria and right-sided facial droop HPI Narrative PEDRO PABLO SIERRA, is a 74 M who presented to [facility] ED on 12/17/2024 with dysarthria and right-sided facial droop. Patient was recently hospitalized here from 12/13-12/16 for acute on chronic hypoxic and hypercapnic respiratory failure secondary to a COPD exacerbation. He had good improvement with IV steroids and scheduled nebulizers and was discharged home on a prolonged prednisone taper. Family notes that was doing fine until this afternoon when he acutely developed a right-sided facial droop with drooling and had significant difficulty with speaking. With the symptoms, they called EMS to bring him in. Last known well was at noon. He did arrive as a stroke alert. Teleneurology noted his NIHSS score was 10 consistent with a moderate stroke. Unfortunately, he was outside the window for TNK. Importantly, patient has history of A-fib. He previously was on Coumadin but has been off now since at least March 2024 due to history of falls. Most recent INR was 1.0 on 12/14. EKG in the ED showed rate controlled A-fib. CT brain was unremarkable. CTA head/neck showed right ICA stenosis of 75% and left ICA stenosis of 50%, no other acute findings. His blood pressure was consistently running in the 190s to 200s systolic in the ED. CBC and BMP were stable from previous. Given high concern for stroke, hospitalist was contacted for admission. I saw the patient at bedside in the ED, and daughter were present. Patient was sitting back in bed and making eye contact with me but had significant difficulty with speaking. 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 Did have a right facial droop noted. On exam he also had right sided leg weakness worse than the left noted, though unclear if this is more chronic or acute. On discussion with family, they told me that they thought the patient was still on Coumadin for A-fib, even though from our records he has been off since at least March of last year. They note prior history of TIA for patient but no history of stroke. Patient also did have moderate wheezing noted bilaterally on exam with mild increased work of breathing noted on 2 L nasal cannula. Family noted that patient had not taken his dose of prednisone today and last breathing treatment was this morning. No other new concerns at this time. Will be admitted for further management. [facility] Medical History Weakness Debility Failure to thrive Compression fx, lumbar spine Hypertension Falls Hypertension Closed fracture of right superior pubic ramus Multiple falls Compression fracture of thoracic vertebra History of atrial fibrillation Iron deficiency anemia Chronic respiratory failure with hypoxia Osteoporosis Lumbar compression fracture Compression fracture Obstructive sleep apnea Hyperlipidemia Asthma Peripheral arterial occlusive disease Seizure disorder Chronic obstructive pulmonary disease Coronary artery disease Lupus anticoagulant disorder BPH (benign prostatic hyperplasia) Ulcerative colitis Peripheral vascular disease Anxiety COPD (chronic obstructive pulmonary disease) with emphysema Closed fracture of right inferior pubic ramus Acute UTI COPD (chronic obstructive pulmonary disease) UTI (urinary tract infection) Depression Diabetes Kidney stones Chronic pain Pancreatitis On home oxygen therapy Irregular heart beat Atrial fibrillation Stroke/cerebrovascular accident Smoker Falls frequently Seizures Sleep apnea COPD (chronic obstructive pulmonary disease) Asthma High cholesterol Tobacco abuse Home Medications ?Medication ?Instructions ?Recorded ?Last Taken ?Type tamsulosin 0.4 mg capsule 0.4 mg PO QHS bph 01/26/14 03/28/23 History finasteride 5 mg tablet 5 mg PO DAILY prostate 11/14/14 12/13/24 08:58 History atorvastatin 40 mg tablet 40 mg PO QHS Cholesterol 09/23/15 12/12/24 History mirtazapine 15 mg tablet 15 mg PO QHS anti depressant 08/16/19 12/12/24 20:59 History clopidogrel 75 mg tablet 75 mg PO DAILY blood thinner 10/25/19 12/13/24 History losartan 100 mg tablet 100 mg PO DAILY Blood pressure 08/19/21 12/13/24 08:58 History pantoprazole 40 mg tablet,delayed 40 mg PO DAILY GERD 08/19/21 12/13/24 08:00 History release nifedipine 90 mg tablet,extended 90 mg PO DAILY blood pressure 11/25/21 12/13/24 08:59 History release alendronate 70 mg tablet 70 mg PO QWEEK OSTEOPROSIS #1 TAB 11/30/21 12/09/24 Rx metoprolol tartrate 25 mg tablet 25 mg PO DAILY Blood pressure 03/30/23 12/13/24 08:59 History sennosides 8.6 mg-docusate sodium 2 tab PO BID PRN PRN Constipation 04/04/23 Unknown Rx 50 mg tablet (Stool #0 tabs Softener-Stimulant Laxative) albuterol sulfate 90 mcg/actuation 1 puff inhalation Q8H SOB 08/22/23 12/13/24 08:53 History aerosol inhaler carbamazepine 200 mg 200 mg PO Q12H SEIZURES 08/22/23 12/13/24 08:55 History tablet,extended release,12 hr cholecalciferol (vitamin D3) 50 50 mcg PO DAILY SUPPLEMENT 08/22/23 12/13/24 History mcg (2,000 unit) tablet sertraline 100 mg tablet 100 mg PO DAILY DEPRESSION 08/22/23 Unknown History ergocalciferol (vitamin D2) 1,250 1,250 mcg PO Q7D SUPPLEMENT #0 caps 04/10/24 12/13/24 08:58 Rx mcg (50,000 unit) capsule (Vitamin D2) clonidine HCl 0.1 mg tablet 0.1 mg PO TID HTN #0 tabs 09/02/24 Unknown Rx dextromethorphan-guaifenesin ER 60 1 tab PO BID COUGH 7 days #14 tabs 09/02/24 12/13/24 Rx mg-1,200 mg tab,extend release,12hr nicotine 14 mg/24 hr daily 14 mg transdermal DAILY NICOTINE 09/02/24 Unknown Rx transdermal patch 28 days #28 ea prednisone 20 mg tablet 40 mg (2 x 20 mg) PO BREAKFAST 1 09/02/24 Unknown Rx day #2 tabs acetaminophen 500 mg tablet 1,000 mg PO Q8 PRN fever or pain 12/13/24 Unknown History albuterol sulfate 2.5 mg/3 mL 2.5 mg continuous nebulization 12/13/24 12/13/24 History (0.083 %) solution for nebulization DAILY SHORTNESS OF BREATH clonidine 0.2 mg/24 hr weekly 1 patch topical QWEEK BLOOD 12/13/24 Unknown History transdermal patch PRESSURE gabapentin 100 mg capsule 100 mg PO DAILY PAIN 12/13/24 12/13/24 08:58 History nicotine 21 mg/24 hr daily 1 patch transdermal DAILY #14 ea 12/16/24 Unknown Rx transdermal patch (Nicoderm CQ) prednisone 10 mg tablet 10 mg PO DAILY #40 tabs 12/16/24 Unknown Rx Allergy/AdvReac Type Severity Reaction Status Date / Time No Known Allergies Allergy Verified 10/19/24 11:12 Family History Mother Heart disease CVA (cerebral vascular accident) Hypertension Father Heart disease CVA (cerebral vascular accident) Hypertension Surgical History S/P arterial stent History of appendectomy Social History household members: family housing: other details: [employer] 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 Smoking Status: Current every day smoker tobacco type: cigarettes alcohol intake: former details: Former alcoholic quit several years ago substance use type: does not use caffeine: Yes Type: coffee Number of servings: 3 ROS Review of Systems ROS Unobtainable: due to mental status Vital Signs Vital Signs Vital Signs: 12/17/24 15:53 12/17/24 16:11 12/17/24 16:21 Temperature 98.5 F 98.5 F Temperature Source Oral Oral Pulse Rate 68 70 Respiratory Rate 20 H 18 Blood Pressure 184/76 H 184/70 H Blood Pressure Mean 112 108 Pulse Ox 98 97 98 Oxygen Delivery Method Room Air Nasal Cannula Nasal Cannula Oxygen Flow Rate (L/min) 2 2 12/17/24 16:23 12/17/24 16:30 12/17/24 17:00 Temperature Temperature Source Pulse Rate 67 69 71 Respiratory Rate Blood Pressure 173/74 H 169/83 H 178/80 H Blood Pressure Mean 107 111 112 Pulse Ox 98 98 98 Oxygen Delivery Method Nasal Cannula Oxygen Flow Rate (L/min) 2 Weight Weight: 73 kg Body Mass Index (BMI) 24.5 Physical Exam Const alert, no apparent distress and average body habitus Constitutional Narrative: Elderly male, alert, sitting back fairly comfortably in bed, mildly anxious appearing, unable to answer questions due to dysarthria, otherwise in no acute distress. General Appearance: cooperative and comfortable HEENT normocephalic, head/scalp atraumatic, hearing grossly normal bilaterally, nasal mucous membranes and turbinates normal and moist oral mucous membranes Eyes Eyes Narrative: Right eye blindness noted. Left eye with EOMs intact bilaterally and conjunctiva normal. Neck full ROM Chest inspection of chest normal Resp Resp Narrative: Mild increased work of breathing noted on 2 L nasal cannula. Moderate wheezing noted bilaterally but otherwise good air movement throughout. No crackles noted. Cardio no murmurs and peripheral pulses 2+ throughout Cardio Narrative: A-fib, rate controlled. GI normal to inspection, nondistended, normoactive bowel sounds, soft to palpation, non-tender and non-distended Back/Spine normal ROM Extremity normal to inspection and no pedal edema Skin no rashes or lesions noted Neuro Neuro Narrative: Right-sided facial droop with severe dysarthria noted. Right leg weakness worse than left noted. Results Lab / Micro Data 12/17/24 16:00 12/17/24 16:00 Labs: Laboratory Results - last 24 hr 12/17/24 16:00: WBC 8.5, RBC 4.45 L, Hgb 12.4 L, Hct 39.6 L, MCV 89.0, MCH 27.9, MCHC 31.3 L, RDW Std Deviation 45.6 H, RDW Coeff of Aly 14.0, Plt Count 417, MPV 10.0, Immature Gran % (Auto) 0.400, Neut % (Auto) 77.5 H, Lymph % (Auto) 12.1 L, [place] % (Auto) 7.8, Eos % (Auto) 1.1, Baso % (Auto) 1.1 H, Absolute Neuts (auto) 6.6, Absolute Lymphs (auto) 1.03, Nucleated RBC % 0 Imaging Radiology Impression Brain CT 12/17/24 15:53 IMPRESSION: 1. Cerebral atrophy. 2. No evidence of acute intracranial pathology. 3. Other findings as noted. Findings were called to the [facility] emergency department on 12/17/2024 at 4:35 p.m. Reading Location: [id number] Head/Neck CTA 12/17/24 15:53 IMPRESSION: Right ICA stenosis of 75%. Left ICA stenosis of 50%. Additional atherosclerosis as above. Biapical pulmonary scarring and emphysema. Reading Location: [id number] Chest X-Ray 12/17/24 15:54 IMPRESSION: Hyperaerated lungs which can suggest COPD. Stable scarring. Reading Location: [id number] Assessment & Plan Assessment/Plan (1) Acute CVA (cerebrovascular accident): PLAN: Plan Patient is a 74-year-old male who presented to [facility] ED on 12/17/2024 with strokelike symptoms. 1. Suspected acute CVA ? Admit under observation status to PCU. Neurology consulted. Presented with acute right sided facial droop and dysarthria, NIHSS score of 10 per neurology. Highest concern is for embolic stroke due to A-fib not on anticoagulation due to history of falls. CTA head/neck did show 75% right ICA stenosis and 50% left ICA stenosis; on chart review, on carotid ultrasound from 2017 there was mild to moderate stenosis noted bilaterally. MRI brain ordered. Echocardiogram ordered to evaluate for thrombus. Lipid panel, A1c and TSH ordered. PT/OT/case management consulted. Will treat with baby aspirin and continue home Plavix for now. Continue home high-intensity statin. Appreciate neurology recommendations. 2. Paroxysmal A-fib ? Known history of paroxysmal A-fib but has been off coagulation since at least March 2024 due to history of falls. EKG on admit showed rate controlled A-fib. Holding home Lopressor for permissive hypertension. Holding anticoagulation and treating with aspirin and Plavix as above. Continue cardiac monitoring. 3. Recent acute on chronic respiratory failure secondary to COPD exacerbation ? Recent hospitalization from 12/13-12/16 for this. On 2 L in the ED but with moderate wheezing noted bilaterally. Given breathing treatment and 1 dose of IV Solu-Medrol, and will continue scheduled breathing treatments and p.o. prednisone while inpatient. 4. Acute on chronic debility with Alzheimer's dementia ? PT/OT/case management consulted as above. Noted during previous hospitalization that family was having difficulty taking care of patient in current living environment. Suspect patient will need placement on discharge. Appreciate therapy recs as above. Chronic medical conditions: ? History of nonobstructive CAD and PAD, hypertension, hyperlipidemia: Treating with aspirin, Plavix, statin as above. Holding home Lopressor, nifedipine, losartan, and clonidine for permissive hypertension. ? BPH with obstructive symptoms: Continue home finasteride. Hold Flomax for now for permissive hypertension. ? GERD: Continue home PPI. ? Anxiety/depression: Continue home sertraline and mirtazapine. ? Tobacco abuse: Nicotine patch in place per patient request. ? Seizure disorder: Continue home carbamazepine. DVT prophylaxis: SCDs CODE STATUS: Full code, verified Expected disposition: TBD Total clinical time spent by myself addressing the patient's medical issues, reviewing all the data, and collaborating with patient's care team: 75 minutes. Charges/Coding Visit Charges Inpatient E&M: 73595 Init Hosp L3
[2024-12-17 18:17] LABS: Anion Gap 13 (5-15); BUN 31 mg/dL (4-19); BUN/Creat Ratio 26.4 RATIO (10-20); Calcium,Total 9.9 mg/dL (7.6-11.0); Carbon Dioxide 25.5 mmol/L (21.0-32.0); Chloride 104 mmol/L (98-108); Estimated Creatinine Clearance 52.33 ml/min (50-250); Glucose 137 mg/dL (70-99); Potassium 3.6 mmol/L (3.3-5.1); Troponin T High Sensitivity 27 ng/L (<=22)
--- NOTE | 2024-12-17 18:35 | CM.ED ---
Social work Reason for referral: stroke alert SW responded to stroke alert called earlier, introducing self and role at [facility] to patient, patient's ex- (Giovana) and patient's daughter (Michelle). Patient was sitting up in bed, but patient was unable to speak. Michelle stated patient had just come home yesterday from [facility] and patient was reportedly adamant about returning to patient's trailer last night. Michelle stated providing patient with Michelle's cell phone last evening in case patient needed anything overnight. Michelle reported stopping by patient's trailer earlier today to find patient in the current condition. Michelle stated desire for patient returning home alone to not be patient's discharge plan this time. Michelle also stated Michelle was living with patient in patient's trailer for some time to help with patient's ADLs as patient needs help with ADLs. Per Michelle, patient has been inappropriate with [facility] staff in the past which led to Michelle having to stay with patient to assist. Patient was alert throughout conversation with Giovana and Michelle, though patient was unable to speak much. No further needs identified at this time due to admission to acute. Ana Liz, HOISTING MACHINE OPERATOR, BOOTH USHER
[2024-12-17 18:44] LABS: Prothrombin Time (Protime)PT. 12.8 SECONDS (11.7-14.9)
[2024-12-17 18:45] LABS: Partial Thromboplast Time 24.2 Seconds (24.1-36.2)
[2024-12-17 18:54] LABS: Troponin T High Sens 2 HR 23 ng/L (<=22)
[2024-12-17 20:37] LABS: Troponin T High Sens 4 HR 23 ng/L (<=22)
[2024-12-17] MEDS: levETIRAcetam IV 1,000 MG/100 ML BAG 400 MG IV (21:04)
[2024-12-17] MEDS: 0.9% Saline Lock 10 ML Syringe IV (21:06)
--- OUTSIDE RECORDS SUMMARY | 2024-12-17 23:09 | XMS RPT_ITS | CCD ---
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 Pritchard on 12-17-2024 Basophils/100 WBC (Bld) 1.1 % High 0-1 [facility] Carbon dioxide, total [Moles /volume] in Central venous bloodOrdered By: Seth Pritchard on 12-17-2024 CO2 [Moles/Vol] 25.5 mmol/L 21.0-32.0 [facility] Chloride assayOrdered By: Bill Pritchard on 12-17-2024 Chloride [Moles/Vol] 104 mmol/L 98-108 [facility] Eosinophil percentageOrdered By: Seth Pritchard on 12-17-2024 Eosinophils/100 WBC (Bld) 1.1 % 0-5 [facility] Erythrocyte distribution wid th ratioOrdered By: Seth Pritchard on 12-17-2024 Erythrocyte distribution width (RBC) [Ratio] 14.0 % 11.6-14.6 [facility] Erythrocyte distribution wid th standard deviationOrdered By: Seth Pritchard on 12-17-2024 Erythrocyte distribution width (RBC) [Ratio] 45.6 fl High 35.1-43.9 [facility] Glomerular filtration rate ( GFR) estimation/1.73 sq m using serum, plasma, or whole bOrdered By: Seth Pritchard on 12-17-2024 GFR/1.73 sq M.predicted among non-blacks MDRD (S/P/Bld) [Vol rate/Area] 64 mL/min/{1.73_m2} >60 [facility] Hematocrit Auto (Bld) [Volum e fraction]Ordered By: Seth Pritchard on 12-17-2024 Hematocrit (Bld) [Volume fraction] 39.6 % Low 40-54 [facility] Hemoglobin measurementOrdere d By: Seth Pritchard on 12-17-2024 Hemoglobin (Bld) [Mass/Vol] 12.4 g/dL Low 13.0-16.5 [facility] Immature granulocytes/100 WB C Auto (Bld)Ordered By: Seth Pritchard on 12-17-2024 Immature granulocytes/100 WBC (Bld) 0.400 % 0.0-0.9 [facility] MCV (mean corpuscular volume ) determinationOrdered By: Seth Pritchard on 12-17-2024 MCV (RBC) [Entitic vol] 89.0 fL 80-94 [facility] Mean corpuscular hemoglobin (MCH) determinationOrdered By: Seth Pritchard on 12-17-2024 MCH (RBC) [Entitic mass] 27.9 pg 27.0-32.0 [facility] Monocyte percentageOrdered B y: Seth Pritchard on 12-17-2024 Monocytes/100 WBC (Bld) 7.8 % 0-10 [facility] Neutrophil percentageOrdered By: Seth Pritchard on 12-17-2024 Neutrophils/100 WBC (Bld) 77.5 % High 47-70 [facility] Platelet countOrdered By: Bill Pritchard on 12-17-2024 Platelets (Bld) [#/Vol] 417 10*3/uL 150-450 [facility] Potassium measurement (mass/ volume)Ordered By: Seth Pritchard on 12-17-2024 Potassium (Unsp spec) [Mass/Vol] 3.6 mmol/L 3.3-5.1 [facility] RBC Auto (Bld) [#/Vol]Ordere d By: Seth Pritchard on 12-17-2024 RBC (Bld) [#/Vol] 4.45 10*6/uL Low 4.6-6.2 [facility] Serum creatinine measurement (mass/volume)Ordered By: Seth Pritchard on 12-17-2024 Creatinine [Mass/Vol] 1.18 mg/dL 0.70-1.20 [facility] Serum glucose measurement (m ass/volume)Ordered By: Seth Pritchard on 12-17-2024 Glucose [Mass/Vol] 137 mg/dL High 70-99 [facility] Serum or plasma calcium luis urement (mass/volume)Ordered By: Seth Pritchard on 12-17-2024 Calcium [Mass/Vol] 9.9 mg/dL 7.6-11.0 [facility] Serum or plasma urea nitroge n measurement (mass/volume)Ordered By: Seth Pritchard on 12-17-2024 Urea nitrogen [Mass/Vol] 31 mg/dL High 4-19 [facility] Sodium levelOrdered By: Huang Pritchard on 12-17-2024 Sodium [Moles/Vol] 142 mmol/L 133-145 [facility] Troponin T.cardiac [Mass/vol ume] in Serum or Plasma by High sensitivity methodOrdered By: Seth Pritchard on 12-17-2024 Troponin T.cardiac High sensitivity method [Mass/Vol] 27 ng/L High <22 [facility] White blood cell (WBC) count Ordered By: Seth Pritchard on 12-17-2024 WBC (Bld) [#/Vol] 8.5 10*3/uL 4.4-11.0 [facility] Anion gap in Serum or Plasma Ordered By: Lisha Talamantes on 12-16-2024 Anion gap [Moles/Vol] 12 mmol/L 5-15 [facility] BUN/creatinine ratioOrdered By: Lisha Talamantes on 12-16-2024 Urea nitrogen/Creatinine [Mass ratio] 24.5 mg/mg High 10- [facility] Basic Metabolic Profile (BMP )on 12-16-2024 BUN/CRE 24.5 RATIO High 10- [facility] Comment on above: Performed By: #### L 500.2500 ####[facility] [address] [place], [address] Calcium [Mass/Vol] 9.4 mg/dL Normal 7.6-11.0 [facility] Comment on above: Performed By: #### L 500.2500 ####[facility] [address] [place], [address] Chloride [Moles/Vol] 102 mmol/L Normal 98-108 [facility] Comment on above: Performed By: #### L 500.2500 ####[facility] [address] [place], [address] CO2 [Moles/Vol] 25.5 mmol/L Normal 21.0-32.0 [facility] Comment on above: Performed By: #### L 500.2500 ####[facility] [address] [place], [address] Creatinine [Mass/Vol] 1.17 mg/dL Normal 0.70-1.20 [facility] Comment on above: Performed By: #### L 500.2500 ####[facility] [address] [place], [address] ECRCL 52.78 ml/min Normal 50-250 [facility] Comment on above: Performed By: #### L 500.2500 ####[facility] [address] [place], [address] GAP 12 Normal 5-15 [facility] Comment on above: Performed By: #### L 500.2500 ####[facility] [address] [place], [address] GFR/1.73 sq M.predicted among non-blacks MDRD (S/P/Bld) [Vol rate/Area] 65 mL/min/{1.73_m2} Normal >60 [facility] Comment on above: Result Comment: mL/m in/1.73m2 CKD-EPI Creatinine Equation (2020) Performed By: #### L 500.2500 ####[facility] [address] [place], [address] Glucose [Mass/Vol] 108 mg/dL High 70-99 [facility] Comment on above: Performed By: #### L 500.2500 ####[facility] [address] [place], [address] Potassium [Moles/Vol] 3.6 mmol/L Normal 3.3-5.1 [facility] Comment on above: Performed By: #### L 500.2500 ####[facility] [address] [place], [address] Sodium [Moles/Vol] 140 mmol/L Normal 133-145 [facility] Comment on above: Performed By: #### L 500.2500 ####[facility] [address] [place], [address] Urea nitrogen [Mass/Vol] 29 mg/dL High 4-19 [facility] Comment on above: Performed By: #### L 500.2500 ####[facility] [address] [place], [address] Carbon dioxide, total [Moles /volume] in Central venous bloodOrdered By: Lisha Talamantes on 12-16-2024 CO2 [Moles/Vol] 25.5 mmol/L 21.0-32.0 [facility] Chloride assayOrdered By: Sierra Talamantes on 12-16-2024 Chloride [Moles/Vol] 102 mmol/L 98-108 [facility] Culture, Blood (WB)on 2024 CUB Blood cultures x2, from two different sites No growth in 48 hours. Normal [facility] Comment on above: Performed By: #### M 200.1000 ####[facility] [address] [place], [address] Glomerular filtration rate ( GFR) estimation/1.73 sq m using serum, plasma, or whole bOrdered By: Lisha Talamantes on 12-16-2024 GFR/1.73 sq M.predicted among non-blacks MDRD (S/P/Bld) [Vol rate/Area] 65 mL/min/{1.73_m2} >60 [facility] Potassium measurement (mass/ volume)Ordered By: Lisha Talamantes on 12-16-2024 Potassium (Unsp spec) [Mass/Vol] 3.6 mmol/L 3.3-5.1 [facility] Serum creatinine measurement (mass/volume)Ordered By: Lisha Talamantes on 12-16-2024 Creatinine [Mass/Vol] 1.17 mg/dL 0.70-1.20 [facility] Serum glucose measurement (m ass/volume)Ordered By: Lisha Talamantes on 12-16-2024 Glucose [Mass/Vol] 108 mg/dL High 70-99 [facility] Serum or plasma calcium luis urement (mass/volume)Ordered By: Lisha Talamantes on 12-16-2024 Calcium [Mass/Vol] 9.4 mg/dL 7.6-11.0 [facility] Serum or plasma urea nitroge n measurement (mass/volume)Ordered By: Lisha Talamantes on 12-16-2024 Urea nitrogen [Mass/Vol] 29 mg/dL High 4-19 [facility] Sodium levelOrdered By: Cecilia Talamantes on 12-16-2024 Sodium [Moles/Vol] 140 mmol/L 133-145 [facility] Absolute lymphocyte countOrd ered By: Lisha Talamantes on 12-15-2024 Lymphocytes Auto (Unsp spec) [#/Vol] 0.82 10*3/uL Low 0.83-4.51 [facility] Automated lymphocyte count a s percentage of total leukocytesOrdered By: Lisha Talamantes on 12-15-2024 Lymphocytes/100 WBC Auto (Unsp spec) 9.8 % Low 19-41 [facility] Basic Metabolic Profile (BMP )on 12-15-2024 BUN/CRE 20.1 RATIO High 10-20 [facility] Comment on above: Performed By: #### L 501.2300, L500.2500, L100.0100, L501.5200 ####[facility] [address] [place], [address] Calcium [Mass/Vol] 9.3 mg/dL Normal 7.6-11.0 [facility] Comment on above: Performed By: #### L 501.2300, L500.2500, L100.0100, L501.5200 ####[facility] [address] [place], [address] Chloride [Moles/Vol] 106 mmol/L Normal 98-108 [facility] Comment on above: Performed By: #### L 501.2300, L500.2500, L100.0100, L501.5200 ####[facility] [address] [place], [address] CO2 [Moles/Vol] 24.0 mmol/L Normal 21.0-32.0 [facility] Comment on above: Performed By: #### L 501.2300, L500.2500, L100.0100, L501.5200 ####[facility] [address] [place], [address] Creatinine [Mass/Vol] 1.10 mg/dL Normal 0.70-1.20 [facility] Comment on above: Performed By: #### L 501.2300, L500.2500, L100.0100, L501.5200 ####[facility] [address] [place], [address] ECRCL 56.14 ml/min Normal 50-250 [facility] Comment on above: Performed By: #### L 501.2300, L500.2500, L100.0100, L501.5200 ####[facility] [address] [place], [address] GAP 12 Normal 5-15 [facility] Comment on above: Performed By: #### L 501.2300, L500.2500, L100.0100, L501.5200 ####[facility] [address] [place], [address] GFR/1.73 sq M.predicted among non-blacks MDRD (S/P/Bld) [Vol rate/Area] 70 mL/min/{1.73_m2} Normal >60 [facility] Comment on above: Result Comment: mL/m in/1.73m2 CKD-EPI Creatinine Equation (2020) Performed By: #### L 501.2300, L500.2500, L100.0100, L501.5200 ####[facility] [address] [place], [address] Glucose [Mass/Vol] 97 mg/dL Normal 70-99 [facility] Comment on above: Performed By: #### L 501.2300, L500.2500, L100.0100, L501.5200 ####[facility] [address] [place], [address] Potassium [Moles/Vol] 4.1 mmol/L Normal 3.3-5.1 [facility] Comment on above: Performed By: #### L 501.2300, L500.2500, L100.0100, L501.5200 ####[facility] [address] [place], [address] Sodium [Moles/Vol] 142 mmol/L Normal 133-145 [facility] Comment on above: Performed By: #### L 501.2300, L500.2500, L100.0100, L501.5200 ####[facility] [address] [place], [address] Urea nitrogen [Mass/Vol] 22 mg/dL High 4-19 [facility] Comment on above: Performed By: #### L 501.2300, L500.2500, L100.0100, L501.5200 ####[facility] [address] [place], [address] Basophil percentageOrdered B y: Lisha Talamantes on 12-15-2024 Basophils/100 WBC (Bld) 0.2 % 0-1 [facility] CBC W/Diff, Automatedon 11-18 Absolute Lymph 0.82 X10 3/uL Low 0.83-4.51 [facility] Comment on above: Performed By: #### L 501.2300, L500.2500, L100.0100, L501.5200 ####[facility] [address] [place], [address] Absolute Neut 7.0 X10 3/uL Normal 2.0-7.7 [facility] Comment on above: Performed By: #### L 501.2300, L500.2500, L100.0100, L501.5200 ####[facility] [address] [place], [address] Basophils/100 WBC (Bld) 0.2 % Normal 0-1 [facility] Comment on above: Performed By: #### L 501.2300, L500.2500, L100.0100, L501.5200 ####[facility] [address] [place], [address] Eosinophils/100 WBC (Bld) 0.0 % Normal 0-5 [facility] Comment on above: Performed By: #### L 501.2300, L500.2500, L100.0100, L501.5200 ####[facility] [address] [place], [address] Erythrocyte distribution width (RBC) [Ratio] 13.8 % Normal 11.6-14.6 [facility] Comment on above: Performed By: #### L 501.2300, L500.2500, L100.0100, L501.5200 ####[facility] [address] [place], [address] Hematocrit (Bld) [Volume fraction] 35.6 % Low 40-54 [facility] Comment on above: Performed By: #### L 501.2300, L500.2500, L100.0100, L501.5200 ####[facility] [address] [place], [address] Hemoglobin (Bld) [Mass/Vol] 11.3 g/dL Low 13.0-16.5 [facility] Comment on above: Performed By: #### L 501.2300, L500.2500, L100.0100, L501.5200 ####[facility] [address] [place], [address] IG% 0.400 Normal 0.0-0.9 [facility] Comment on above: Result Comment: IG% - Immature Granulocytes (promyelocytes, myelocytes andmetamyelocytes) > 1% indicates that a LEFT SHIFT is Present. Performed By: #### L 501.2300, L500.2500, L100.0100, L501.5200 ####[facility] [address] [place], [address] Lymphocytes/100 WBC (Bld) 9.8 % Low 19-41 [facility] Comment on above: Performed By: #### L 501.2300, L500.2500, L100.0100, L501.5200 ####[facility] [address] [place], [address] MCH (RBC) [Entitic mass] 28.2 pg Normal 27.0-32.0 [facility] Comment on above: Performed By: #### L 501.2300, L500.2500, L100.0100, L501.5200 ####[facility] [address] [place], [address] MCHC (RBC) [Mass/Vol] 31.7 g/dL Low 32-36 [facility] Comment on above: Performed By: #### L 501.2300, L500.2500, L100.0100, L501.5200 ####[facility] [address] [place], [address] MCV (RBC) [Entitic vol] 88.8 fL Normal 80-94 [facility] Comment on above: Performed By: #### L 501.2300, L500.2500, L100.0100, L501.5200 ####[facility] [address] [place], [address] Monocytes/100 WBC (Bld) 6.3 % Normal 0-10 [facility] Comment on above: Performed By: #### L 501.2300, L500.2500, L100.0100, L501.5200 ####[facility] [address] [place], [address] Neutrophils/100 WBC (Bld) 83.3 % High 47-70 [facility] Comment on above: Performed By: #### L 501.2300, L500.2500, L100.0100, L501.5200 ####[facility] [address] [place], [address] Nucleated RBC (Bld) [#/Vol] 0 10*3/uL Normal 0-5 [facility] Comment on above: Performed By: #### L 501.2300, L500.2500, L100.0100, L501.5200 ####[facility] [address] [place], [address] Platelet mean volume (Bld) [Entitic vol] 10.0 fL Normal 6.2-12.0 [facility] Comment on above: Performed By: #### L 501.2300, L500.2500, L100.0100, L501.5200 ####[facility] [address] [place], [address] Platelets (Bld) [#/Vol] 329 10*3/uL Normal 150-450 [facility] Comment on above: Performed By: #### L 501.2300, L500.2500, L100.0100, L501.5200 ####[facility] [address] [place], [address] RBC (Bld) [#/Vol] 4.01 10*6/uL Low 4.6-6.2 [facility] Comment on above: Performed By: #### L 501.2300, L500.2500, L100.0100, L501.5200 ####[facility] [address] [place], [address] RDW SD 44.9 fl High 35.1-43.9 [facility] Comment on above: Performed By: #### L 501.2300, L500.2500, L100.0100, L501.5200 ####[facility] [address] [place], [address] WBC (Bld) [#/Vol] 8.4 10*3/uL Normal 4.4-11.0 [facility] Comment on above: Performed By: #### L 501.2300, L500.2500, L100.0100, L501.5200 ####[facility] [address] [place], [address] Eosinophil percentageOrdered By: Lisha Talamantes on 12-15-2024 Eosinophils/100 WBC (Bld) 0.0 % 0-5 [facility] Erythrocyte distribution wid th ratioOrdered By: Lisha Talamantes on 12-15-2024 Erythrocyte distribution width (RBC) [Ratio] 13.8 % 11.6-14.6 [facility] Erythrocyte distribution wid th standard deviationOrdered By: Lisha Talamantes on 12-15-2024 Erythrocyte distribution width (RBC) [Ratio] 44.9 fl High 35.1-43.9 [facility] Hematocrit Auto (Bld) [Volum e fraction]Ordered By: Lisha Talamantes on 12-15-2024 Hematocrit (Bld) [Volume fraction] 35.6 % Low 40-54 [facility] Hemoglobin measurementOrdere d By: Lisha Talamantes on 12-15-2024 Hemoglobin (Bld) [Mass/Vol] 11.3 g/dL Low 13.0-16.5 [facility] Immature granulocytes/100 WB C Auto (Bld)Ordered By: Lisha Talamantes on 12-15-2024 Immature granulocytes/100 WBC (Bld) 0.400 % 0.0-0.9 [facility] MCV (mean corpuscular volume ) determinationOrdered By: Lisha Talamantes on 12-15-2024 MCV (RBC) [Entitic vol] 88.8 fL 80-94 [facility] Magnesiumon 12-15-2024 Magnesium [Mass/Vol] 2.0 mg/dL Normal 1.5-2.2 [facility] Comment on above: Performed By: #### L 501.2300, L500.2500, L100.0100, L501.5200 ####[facility] [address] [place], [address] Magnesium measurement (mass/ volume)Ordered By: Lisha Talamantes on 12-15-2024 Magnesium (Unsp spec) [Mass/Vol] 2.0 mg/dL 1.5-2.2 [facility] Mean corpuscular hemoglobin (MCH) determinationOrdered By: Lisha Talamantes on 12-15-2024 MCH (RBC) [Entitic mass] 28.2 pg 27.0-32.0 [facility] Monocyte percentageOrdered B y: Lisha Talamantes on 12-15-2024 Monocytes/100 WBC (Bld) 6.3 % 0-10 [facility] Neutrophil percentageOrdered By: Lisha Talamantes on 12-15-2024 Neutrophils/100 WBC (Bld) 83.3 % High 47-70 [facility] Phosphoruson 12-15-2024 Phosphate [Mass/Vol] 3.3 mg/dL Normal 2.7-4.5 [facility] Comment on above: Performed By: #### L 501.2300, L500.2500, L100.0100, L501.5200 ####[facility] [address] [place], [address] Platelet countOrdered By: Seirra Talamantes on 12-15-2024 Platelets (Bld) [#/Vol] 329 10*3/uL 150-450 [facility] RBC Auto (Bld) [#/Vol]Ordere d By: Lisha Talamantes on 12-15-2024 RBC (Bld) [#/Vol] 4.01 10*6/uL Low 4.6-6.2 [facility] White blood cell (WBC) count Ordered By: Lisha Talamantes on 12-15-2024 WBC (Bld) [#/Vol] 8.4 10*3/uL 4.4-11.0 [facility] Bilirubin, totalOrdered By: Shilpa Contreras on 12-14-2024 Bilirubin [Mass/Vol] mg/dL 0.00-1.30 [facility] CBC W/Diff, Automatedon 11-18 Absolute Lymph 0.65 X10 3/uL Low 0.83-4.51 [facility] Comment on above: Performed By: #### L 300.3900, L100.0100, L500.4050 ####[facility] [address] [place], [address] Absolute Neut 3.4 X10 3/uL Normal 2.0-7.7 [facility] Comment on above: Performed By: #### L 300.3900, L100.0100, L500.4050 ####[facility] [address] [place], [address] Basophils/100 WBC (Bld) 0.2 % Normal 0-1 [facility] Comment on above: Performed By: #### L 300.3900, L100.0100, L500.4050 ####[facility] [address] [place], [address] Eosinophils/100 WBC (Bld) 0.0 % Normal 0-5 [facility] Comment on above: Performed By: #### L 300.3900, L100.0100, L500.4050 ####[facility] [address] [place], [address] Erythrocyte distribution width (RBC) [Ratio] 13.7 % Normal 11.6-14.6 [facility] Comment on above: Performed By: #### L 300.3900, L100.0100, L500.4050 ####[facility] [address] [place], [address] Hematocrit (Bld) [Volume fraction] 33.7 % Low 40-54 [facility] Comment on above: Performed By: #### L 300.3900, L100.0100, L500.4050 ####[facility] [address] [place], [address] Hemoglobin (Bld) [Mass/Vol] 10.6 g/dL Low 13.0-16.5 [facility] Comment on above: Performed By: #### L 300.3900, L100.0100, L500.4050 ####[facility] [address] [place], [address] IG% 0.200 Normal 0.0-0.9 [facility] Comment on above: Result Comment: IG% - Immature Granulocytes (promyelocytes, myelocytes andmetamyelocytes) > 1% indicates that a LEFT SHIFT is Present. Performed By: #### L 300.3900, L100.0100, L500.4050 ####[facility] [address] [place], [address] Lymphocytes/100 WBC (Bld) 15.0 % Low 19-41 [facility] Comment on above: Performed By: #### L 300.3900, L100.0100, L500.4050 ####[facility] [address] [place], [address] MCH (RBC) [Entitic mass] 27.8 pg Normal 27.0-32.0 [facility] Comment on above: Performed By: #### L 300.3900, L100.0100, L500.4050 ####[facility] [address] [place], [address] MCHC (RBC) [Mass/Vol] 31.5 g/dL Low 32-36 [facility] Comment on above: Performed By: #### L 300.3900, L100.0100, L500.4050 ####[facility] [address] [place], [address] MCV (RBC) [Entitic vol] 88.5 fL Normal 80-94 [facility] Comment on above: Performed By: #### L 300.3900, L100.0100, L500.4050 ####[facility] [address] [place], [address] Monocytes/100 WBC (Bld) 5.3 % Normal 0-10 [facility] Comment on above: Performed By: #### L 300.3900, L100.0100, L500.4050 ####[facility] [address] [place], [address] Neutrophils/100 WBC (Bld) 79.3 % High 47-70 [facility] Comment on above: Performed By: #### L 300.3900, L100.0100, L500.4050 ####[facility] [id number] [place], [address] Nucleated RBC (Bld) [#/Vol] 0 10*3/uL Normal 0-5 [facility] Comment on above: Performed By: #### L 300.3900, L100.0100, L500.4050 ####[facility] [id number] [place], [address] Platelet mean volume (Bld) [Entitic vol] 10.1 fL Normal 6.2-12.0 [facility] Comment on above: Performed By: #### L 300.3900, L100.0100, L500.4050 ####[facility] [id number] [place], [address] Platelets (Bld) [#/Vol] 306 10*3/uL Normal 150-450 [facility] Comment on above: Performed By: #### L 300.3900, L100.0100, L500.4050 ####[facility] [address] [place], [address] RBC (Bld) [#/Vol] 3.81 10*6/uL Low 4.6-6.2 [facility] Comment on above: Performed By: #### L 300.3900, L100.0100, L500.4050 ####[facility] [address] [place], [address] RDW SD 44.5 fl High 35.1-43.9 [facility] Comment on above: Performed By: #### L 300.3900, L100.0100, L500.4050 ####[facility] [address] [place], [address] WBC (Bld) [#/Vol] 4.3 10*3/uL Low 4.4-11.0 [facility] Comment on above: Performed By: #### L 300.3900, L100.0100, L500.4050 ####[facility] [address] [place], [address] Comprehensive Metabolic Prof chetan 12-14-2024 ALK PHOS 70 U/L Normal 40-129 [facility] Comment on above: Performed By: #### L 300.3900, L100.0100, L500.4050 ####[facility] [address] [place], [address] AST [Catalytic activity/Vol] 18 U/L Normal <=37 [facility] Comment on above: Performed By: #### L 300.3900, L100.0100, L500.4050 ####[facility] [address] [place], [address] BUN/CRE 12.3 RATIO Normal 10-20 [facility] Comment on above: Performed By: #### L 300.3900, L100.0100, L500.4050 ####[facility] [address] [place], [address] Calcium [Mass/Vol] 9.5 mg/dL Normal 7.6-11.0 [facility] Comment on above: Performed By: #### L 300.3900, L100.0100, L500.4050 ####[facility] [address] [place], [address] Chloride [Moles/Vol] 105 mmol/L Normal 98-108 [facility] Comment on above: Performed By: #### L 300.3900, L100.0100, L500.4050 ####[facility] [address] [place], [address] CO2 [Moles/Vol] 24.4 mmol/L Normal 21.0-32.0 [facility] Comment on above: Performed By: #### L 300.3900, L100.0100, L500.4050 ####[facility] [address] [place], [address] Creatinine [Mass/Vol] 1.04 mg/dL Normal 0.70-1.20 [facility] Comment on above: Performed By: #### L 300.3900, L100.0100, L500.4050 ####[facility] [address] [place], [address] ECRCL 59.38 ml/min Normal 50-250 [facility] Comment on above: Performed By: #### L 300.3900, L100.0100, L500.4050 ####[facility] [address] [place], [address] GAP 13 Normal 5-15 [facility] Comment on above: Performed By: #### L 300.3900, L100.0100, L500.4050 ####[facility] [address] [place], [address] GFR/1.73 sq M.predicted among non-blacks MDRD (S/P/Bld) [Vol rate/Area] 75 mL/min/{1.73_m2} Normal >60 [facility] Comment on above: Result Comment: mL/m in/1.73m2 CKD-EPI Creatinine Equation (2020) Performed By: #### L 300.3900, L100.0100, L500.4050 ####[facility] [address] [place], [address] Glucose [Mass/Vol] 129 mg/dL High 70-99 [facility] Comment on above: Performed By: #### L 300.3900, L100.0100, L500.4050 ####[facility] [address] [place], [address] Potassium [Moles/Vol] 3.8 mmol/L Normal 3.3-5.1 [facility] Comment on above: Performed By: #### L 300.3900, L100.0100, L500.4050 ####[facility] [address] [place], [address] Sodium [Moles/Vol] 143 mmol/L Normal 133-145 [facility] Comment on above: Performed By: #### L 300.3900, L100.0100, L500.4050 ####[facility] [address] [place], [address] T BILI < 0.15 Normal 0.00-1.30 [facility] Comment on above: Performed By: #### L 300.3900, L100.0100, L500.4050 ####[facility] [address] [place], [address] T PROT 6.6 g/dL Normal 5.9-8.4 [facility] Comment on above: Performed By: #### L 300.3900, L100.0100, L500.4050 ####[facility] [address] [place], [address] Urea nitrogen [Mass/Vol] 13 mg/dL Normal 4-19 [facility] Comment on above: Performed By: #### L 300.3900, L100.0100, L500.4050 ####[facility] [address] [place], [address] No Panel InformationOrdered By: Shilpa Contreras on 12-14-2024 18 U/L <38 [facility] Prothrombin Time w/INRon INR Coag (PPP) [Relative time] 1.0 {INR} Normal [facility] Comment on above: Performed By: #### L 300.3900, L100.0100, L500.4050 ####[facility] [address] [place], [address] PT Coag (PPP) [Time] 13.5 s Normal 11.7-14.9 [facility] Comment on above: Performed By: #### L 300.3900, L100.0100, L500.4050 ####[facility] [address] [place], [address] Prothrombin timeOrdered By: Shilpa Contreras on 12-14-2024 PT Coag (PPP) [Time] 13.5 s 11.7-14.9 [facility] RESPIRATORY PANEL MOLECULARo n 12-14-2024 RP PANEL Normal [facility] Comment on above: Performed By: #### M 100.638 ####[facility] [address] [place], [address] Serum globulin measurementOr dered By: Shilpa Contreras on 12-14-2024 Globulin (S) [Mass/Vol] 2.5 g/dL 2.2-4.2 [facility] Comment on above: Performed By: #### L 300.3900, L100.0100, L500.4050 ####[facility] [address] [place], [address] Serum or plasma alanine saul otransferase (ALT) measurementOrdered By: Shilpa Contreras on 12-14-2024 ALT [Catalytic activity/Vol] 16 U/L <47 [facility] Comment on above: Performed By: #### L 300.3900, L100.0100, L500.4050 ####[facility] [address] [place], [address] Serum or plasma albumin luis urement (mass/volume)Ordered By: Shilpa Contreras on 12-14-2024 Albumin [Mass/Vol] 4.0 g/dL 3.4-4.8 [facility] Comment on above: Performed By: #### L 300.3900, L100.0100, L500.4050 ####[facility] [address] [place], [address] Serum or plasma albumin/glob ulin mass ratioOrdered By: Shilpa Contreras on 12-14-2024 Albumin/Globulin [Mass ratio] 1.6 {ratio} 0.9-2.4 [facility] Comment on above: Performed By: #### L 300.3900, L100.0100, L500.4050 ####[facility] [address] [place], [address] Serum or plasma alkaline kathleen sphatase measurementOrdered By: Shilpa Contreras on 12-14-2024 ALP [Catalytic activity/Vol] 70 U/L 40-129 [facility] Total proteinOrdered By: Roverto n White on 12-14-2024 Protein [Mass/Vol] 6.6 g/dL 5.9-8.4 [facility] Absolute lymphocyte countOrd ered By: Charis Walker on 12-13-2024 Lymphocytes Auto (Unsp spec) [#/Vol] 1.16 10*3/uL 0.83-4.51 [facility] Absolute neutrophil countOrd ered By: Charis Walker on 12-13-2024 Neutrophils (Bld) [#/Vol] 4.0 10*3/uL 2.0-7.7 [facility] Anion gap in Serum or Plasma Ordered By: Charis Walker on 12-13-2024 Anion gap [Moles/Vol] 13 mmol/L 5-15 [facility] Automated lymphocyte count a s percentage of total leukocytesOrdered By: Charis Walker on 12-13-2024 Lymphocytes/100 WBC Auto (Unsp spec) 19.5 % 19-41 [facility] BUN/creatinine ratioOrdered By: Charis Walker on 12-13-2024 Urea nitrogen/Creatinine [Mass ratio] 11.0 mg/mg 10-20 [facility] Basic Metabolic Profile (BMP )on 12-13-2024 BUN/CRE 11.0 RATIO Normal - [facility] Comment on above: Performed By: #### L 500.2500, L100.0100 ####[facility] [address] [place], [address] Calcium [Mass/Vol] 9.7 mg/dL Normal 7.6-11.0 [facility] Comment on above: Performed By: #### L 500.2500, L100.0100 ####[facility] [address] [place], [address] Chloride [Moles/Vol] 104 mmol/L Normal 98-108 [facility] Comment on above: Performed By: #### L 500.2500, L100.0100 ####[facility] [address] [place], [address] CO2 [Moles/Vol] 24.4 mmol/L Normal 21.0-32.0 [facility] Comment on above: Performed By: #### L 500.2500, L100.0100 ####[facility] [address] [place], [address] Creatinine [Mass/Vol] 1.11 mg/dL Normal 0.70-1.20 [facility] Comment on above: Performed By: #### L 500.2500, L100.0100 ####[facility] [address] [place], [address] ECRCL 55.63 ml/min Normal 50-250 [facility] Comment on above: Performed By: #### L 500.2500, L100.0100 ####[facility] [address] [place], [address] GAP 13 Normal 5-15 [facility] Comment on above: Performed By: #### L 500.2500, L100.0100 ####[facility] [address] [place], [address] GFR/1.73 sq M.predicted among non-blacks MDRD (S/P/Bld) [Vol rate/Area] 69 mL/min/{1.73_m2} Normal >60 [facility] Comment on above: Result Comment: mL/m in/1.73m2 CKD-EPI Creatinine Equation (2020) Performed By: #### L 500.2500, L100.0100 ####[facility] [address] [place], [address] Glucose [Mass/Vol] 102 mg/dL High 70-99 [facility] Comment on above: Performed By: #### L 500.2500, L100.0100 ####[facility] [address] [place], [address] Potassium [Moles/Vol] 3.7 mmol/L Normal 3.3-5.1 [facility] Comment on above: Performed By: #### L 500.2500, L100.0100 ####[facility] [address] [place], [address] Sodium [Moles/Vol] 141 mmol/L Normal 133-145 [facility] Comment on above: Performed By: #### L 500.2500, L100.0100 ####[facility] [address] [place], [address] Urea nitrogen [Mass/Vol] 12 mg/dL Normal 4-19 [facility] Comment on above: Performed By: #### L 500.2500, L100.0100 ####[facility] [address] [place], [address] Basophil percentageOrdered B y: Remus Ungur on 12-13-2024 Basophils/100 WBC (Bld) 1.0 % 0-1 [facility] CBC W/Diff, Automatedon 11-18 Absolute Lymph 1.16 X10 3/uL Normal 0.83-4.51 [facility] Comment on above: Performed By: #### L 500.2500, L100.0100 ####[facility] [address] [place], [address] Absolute Neut 4.0 X10 3/uL Normal 2.0-7.7 [facility] Comment on above: Performed By: #### L 500.2500, L100.0100 ####[facility] [address] [place], [address] Basophils/100 WBC (Bld) 1.0 % Normal 0-1 [facility] Comment on above: Performed By: #### L 500.2500, L100.0100 ####[facility] [address] [place], [address] Eosinophils/100 WBC (Bld) 3.0 % Normal 0-5 [facility] Comment on above: Performed By: #### L 500.2500, L100.0100 ####[facility] [address] [place], [address] Erythrocyte distribution width (RBC) [Ratio] 13.7 % Normal 11.6-14.6 [facility] Comment on above: Performed By: #### L 500.2500, L100.0100 ####[facility] [address] [place], [address] Hematocrit (Bld) [Volume fraction] 37.5 % Low 40-54 [facility] Comment on above: Performed By: #### L 500.2500, L100.0100 ####[facility] [address] [place], [address] Hemoglobin (Bld) [Mass/Vol] 11.5 g/dL Low 13.0-16.5 [facility] Comment on above: Performed By: #### L 500.2500, L100.0100 ####[facility] [address] [place], [address] IG% 0.300 Normal 0.0-0.9 [facility] Comment on above: Result Comment: IG% - Immature Granulocytes (promyelocytes, myelocytes andmetamyelocytes) > 1% indicates that a LEFT SHIFT is Present. Performed By: #### L 500.2500, L100.0100 ####[facility] [address] [place], [address] Lymphocytes/100 WBC (Bld) 19.5 % Normal 19-41 [facility] Comment on above: Performed By: #### L 500.2500, L100.0100 ####[facility] [address] [place], [address] MCH (RBC) [Entitic mass] 27.7 pg Normal 27.0-32.0 [facility] Comment on above: Performed By: #### L 500.2500, L100.0100 ####[facility] [address] [place], [address] MCHC (RBC) [Mass/Vol] 30.7 g/dL Low 32-36 [facility] Comment on above: Performed By: #### L 500.2500, L100.0100 ####[facility] [address] [place], [address] MCV (RBC) [Entitic vol] 90.4 fL Normal 80-94 [facility] Comment on above: Performed By: #### L 500.2500, L100.0100 ####[facility] [address] [place], [address] Monocytes/100 WBC (Bld) 8.9 % Normal 0-10 [facility] Comment on above: Performed By: #### L 500.2500, L100.0100 ####[facility] [address] [place], [address] Neutrophils/100 WBC (Bld) 67.3 % Normal 47-70 [facility] Comment on above: Performed By: #### L 500.2500, L100.0100 ####[facility] [address] [place], [address] Nucleated RBC (Bld) [#/Vol] 0 10*3/uL Normal 0-5 [facility] Comment on above: Performed By: #### L 500.2500, L100.0100 ####[facility] [address] [place], [address] Platelet mean volume (Bld) [Entitic vol] 9.7 fL Normal 6.2-12.0 [facility] Comment on above: Performed By: #### L 500.2500, L100.0100 ####[facility] [address] [place], [address] Platelets (Bld) [#/Vol] 299 10*3/uL Normal 150-450 [facility] Comment on above: Performed By: #### L 500.2500, L100.0100 ####[facility] [address] [place], [address] RBC (Bld) [#/Vol] 4.15 10*6/uL Low 4.6-6.2 [facility] Comment on above: Performed By: #### L 500.2500, L100.0100 ####[facility] [address] [place], [address] RDW SD 44.8 fl High 35.1-43.9 [facility] Comment on above: Performed By: #### L 500.2500, L100.0100 ####[facility] [address] [place], [address] WBC (Bld) [#/Vol] 5.9 10*3/uL Normal 4.4-11.0 [facility] Comment on above: Performed By: #### L 500.2500, L100.0100 ####[facility] [address] [place], [address] CO2 (BldV) [Moles/Vol]Ordere d By: Shlipa Contreras on 12-13-2024 CO2 [Moles/Vol] 28 mmol/L 23-33 [facility] Carbon dioxide, total [Moles /volume] in Central venous bloodOrdered By: Charis Walker on 12-13-2024 CO2 [Moles/Vol] 24.4 mmol/L 21.0-32.0 [facility] Chest 1 View (Portable)on Chest 1 View (Portable) Normal [facility] Chloride assayOrdered By: Ame Walker on 12-13-2024 Chloride [Moles/Vol] 104 mmol/L 98-108 [facility] Emergency Department Summary on 12-13-2024 Emergency Department Summary Normal [facility] Eosinophil percentageOrdered By: Charis Walker on 12-13-2024 Eosinophils/100 WBC (Bld) 3.0 % 0-5 [facility] Erythrocyte distribution wid th ratioOrdered By: Charis Walker on 12-13-2024 Erythrocyte distribution width (RBC) [Ratio] 13.7 % 11.6-14.6 [facility] Erythrocyte distribution wid th standard deviationOrdered By: Charis Walker on 12-13-2024 Erythrocyte distribution width (RBC) [Ratio] 44.8 fl High 35.1-43.9 [facility] Glomerular filtration rate ( GFR) estimation/1.73 sq m using serum, plasma, or whole bOrdered By: Charis Walker on 12-13-2024 GFR/1.73 sq M.predicted among non-blacks MDRD (S/P/Bld) [Vol rate/Area] 69 mL/min/{1.73_m2} >60 [facility] Comment on above: mL/min/1.73m2 CKD-EP I Creatinine Equation (2020) H AND P Exam - [facility] 12-13-2024 H&P Exam - Hospitalist Normal [facility] Hematocrit Auto (Bld) [Volum e fraction]Ordered By: Charis Walker on 12-13-2024 Hematocrit (Bld) [Volume fraction] 37.5 % Low 40-54 [facility] Hemoglobin measurementOrdere d By: Charis Walker on 12-13-2024 Hemoglobin (Bld) [Mass/Vol] 11.5 g/dL Low 13.0-16.5 [facility] Immature granulocytes/100 WB C Auto (Bld)Ordered By: Charis Walker on 12-13-2024 Immature granulocytes/100 WBC (Bld) 0.300 % 0.0-0.9 [facility] Comment on above: IG% - Immature Granu locytes (promyelocytes, myelocytes and metamyelocytes) > 1% indicates that a LEFT SHIFT is Present. Influenza virus A and B and SARS-CoV-2 (COVID-19) and Respiratory syncytial virus RNAOrdered By: Charis Walker on 12-13-2024 SARS-CoV-2 (COVID-19) RNA ALEENA+probe Ql (Unsp spec) [facility] International normalized rat io (INR) calculationOrdered By: Charis Walker on 12-13-2024 INR Coag (Bld) [Relative time] 0.9 {INR} [facility] L509.7001on 12-13-2024 Procalcitonin 0.05 ng/mL Normal <=0.10 [facility] Comment on above: Result Comment: Inte rpretation:<0.10-0.25 ng/mL: Antibiotic therapy discouraged. Bacterialinfection unlikely.0.25-0.50 ng/mL: Antibiotic therapy encouraged. Bacterialinfection possible.>0.50 ng/mL: Antibiotic therapy strongly encouraged.Suggestive of presence of bacterial infection.PCT should always be interpreted in the clinical context ofthe patient. Therefore, clinicians should use the PCTresults in conjunction with other laboratory findings andclinical signs of the patient. Performed By: #### L 509.7001 ####[facility] [address] [facility] [place], [address] M100.678on 12-13-2024 M100.678 Pending SARS-CoV-2 (COVID 19) Negative INFLUENZA A Negative INFLUENZA B Negative RSV PCR Negative Normal [facility] Comment on above: Performed By: #### M 100.678 ####[facility] [address] [place], [address] MCV (mean corpuscular volume ) determinationOrdered By: Charis Walker on 12-13-2024 MCV (RBC) [Entitic vol] 90.4 fL 80-94 [facility] Mean corpuscular hemoglobin (MCH) determinationOrdered By: Charis Walker on 12-13-2024 MCH (RBC) [Entitic mass] 27.7 pg 27.0-32.0 [facility] Mean corpuscular hemoglobin concentration (MCHC) determinationOrdered By: Remus Walker on 12-13-2024 MCHC (RBC) [Mass/Vol] 30.7 g/dL Low 32-36 [facility] Mean platelet volume determi nationOrdered By: Charis Walker on 12-13-2024 Platelet mean volume (Bld) [Entitic vol] 9.7 fL 6.2-12.0 [facility] Monocyte percentageOrdered B y: Remus Aaron on 12-13-2024 Monocytes/100 WBC (Bld) 8.9 % 0-10 [facility] Neutrophil percentageOrdered By: Remus Aaron on 12-13-2024 Neutrophils/100 WBC (Bld) 67.3 % 47-70 [facility] No Panel InformationOrdered By: Shilpa Contreras on 12-13-2024 Blood Gas Sample Site Not entered [facility] Blood Gas Specimen Type LASHAE [facility] Oxygen Delivery Device Cannula [facility] LASHAE [facility] Not entered [facility] Cannula [facility] Nucleated red blood cell per centageOrdered By: Charis Walker on 12-13-2024 Nucleated RBC/100 WBC (Bld) [Ratio] 0 % 0-5 [facility] Platelet countOrdered By: Ame Walker on 12-13-2024 Platelets (Bld) [#/Vol] 299 10*3/uL 150-450 [facility] Potassium measurement (mass/ volume)Ordered By: Charis Walker on 12-13-2024 Potassium (Unsp spec) [Mass/Vol] 3.7 mmol/L 3.3-5.1 [facility] Procalcitonin [Mass/volume] in Serum or Plasma by ImmunoassayOrdered By: Shilpa Contreras on 12-13-2024 Procalcitonin IA [Mass/Vol] 0.05 ng/mL <0.11 [facility] Prothrombin Time w/INRon INR Coag (PPP) [Relative time] 0.9 {INR} Normal [facility] Comment on above: Performed By: #### L 300.3900 ####[facility] [address] [place], [address] PT Coag (PPP) [Time] 12.5 s Normal 11.7-14.9 [facility] Comment on above: Performed By: #### L 300.3900 ####[facility] [address] [place], [place], [id number] Prothrombin timeOrdered By: Charis Walker on 12-13-2024 PT Coag (PPP) [Time] 12.5 s 11.7-14.9 [facility] RBC Auto (Bld) [#/Vol]Ordere d By: Charis Walker on 12-13-2024 RBC (Bld) [#/Vol] 4.15 10*6/uL Low 4.6-6.2 [facility] Respiratory pathogens detect ion panel by molecular detection methodOrdered By: Shilpa Contreras on 12-13-2024 Respiratory pathogens DNA and RNA panel ALEENA+probe (Resp) [facility] Serum creatinine measurement (mass/volume)Ordered By: Charis Walker on 12-13-2024 Creatinine [Mass/Vol] 1.11 mg/dL 0.70-1.20 [facility] Serum glucose measurement (m ass/volume)Ordered By: Remus Ungkevin on 12-13-2024 Glucose [Mass/Vol] 102 mg/dL High 70-99 [facility] Serum or plasma calcium luis urement (mass/volume)Ordered By: Remus Ungkevin on 12-13-2024 Calcium [Mass/Vol] 9.7 mg/dL 7.6-11.0 [facility] Serum or plasma urea nitroge n measurement (mass/volume)Ordered By: Remus Walker on 12-13-2024 Urea nitrogen [Mass/Vol] 12 mg/dL 4-19 [facility] Sodium levelOrdered By: Nelson s Aaron on 12-13-2024 Sodium [Moles/Vol] 141 mmol/L 133-145 [facility] Venous Blood Gason 5 Blood Gas Type LASHAE Normal [facility] Comment on above: Performed By: #### L 9000.0810 ####[facility] [address] [place], [place], [id number] CO2 [Moles/Vol] 28 mmol/L Normal 23-33 [facility] Comment on above: Performed By: #### L 9000.0810 ####[facility] [address] [place], [address] FI02 4.0 Normal [facility] Comment on above: Performed By: #### L 9000.0810 ####[facility] [address] [place], [address] HCO3 (Bld) [Moles/Vol] 26 mmol/L Normal 22-26 [facility] Comment on above: Performed By: #### L 9000.0810 ####[facility] [address] [place], [address] O2 Delivery Dev Cannula Normal [facility] Comment on above: Performed By: #### L 9000.0810 ####[facility] [address] [place], [address] SITE Not entered Normal [facility] Comment on above: Performed By: #### L 9000.0810 ####[facility] [address] [place], [address] VBG BE 2 mmol/L Normal -1.0-3.5 [facility] Comment on above: Performed By: #### L 9000.0810 ####[facility] [address] [place], [address] VBG pCO2 42.7 mmHg Normal 41-51 [facility] Comment on above: Performed By: #### L 9000.0810 ####[facility] [address] [place], [address] VBG pH 7.40 Normal 7.32-7.42 [facility] Comment on above: Performed By: #### L 9000.0810 ####[facility] [address] [place], [address] VBG PO2 56 mmHg High 25-40 [facility] Comment on above: Performed By: #### L 9000.0810 ####[facility] [address] [place], [address] VBG SO2 89 High 50-70 [facility] Comment on above: Performed By: #### L 9000.0810 ####[facility] [address] [place], [address] Venous blood base excess arlyn surementOrdered By: Shilpa Contreras on 12-13-2024 Base excess Calc (BldV) [Moles/Vol] 2 mmol/L -1.0-3.5 [facility] Venous blood bicarbonate arlyn surementOrdered By: Shilpa Contreras on 12-13-2024 HCO3 (Bld) [Moles/Vol] 26 mmol/L 22- [facility] Venous blood oxygen saturati on measurementOrdered By: Shilpa Contreras on 12-13-2024 Oxygen saturation in Blood 89 % High 50-70 [facility] Venous blood pH measurementO rdered By: Shilpa Contreras on 12-13-2024 pH (BldV) 7.40 [pH] 7.32-7.42 [facility] Venous blood partial pressur e of carbon dioxide measurementOrdered By: Shilpa Contreras on 12-13-2024 CO2 (BldV) [Partial pressure] 42.7 mm[Hg] 41-51 [facility] Venous blood partial pressur e of oxygen measurementOrdered By: Shilpa Contreras on 12-13-2024 Oxygen (BldV) [Partial pressure] 56 mm[Hg] High 25-40 [facility] White blood cell (WBC) count Ordered By: Charis Walker on 12-13-2024 WBC (Bld) [#/Vol] 5.9 10*3/uL 4.4-11.0 [facility] CBC W Auto Differential pane l (Bld)on 12-12-2024 Basophils (Bld) [#/Vol] 0.09 10*3/uL [facility] Basophils/100 WBC (Bld) 1.5 % [facility] Differential cell count method Nom (Bld) Auto [facility] Eosinophils (Bld) [#/Vol] 0.22 10*3/uL [facility] Eosinophils/100 WBC (Bld) 3.7 % [facility] Erythrocyte distribution width (RBC) [Ratio] 13.8 % 11.5 - 15.0 % [facility] Hematocrit (Bld) [Volume fraction] 38.3 % Low 39.0 - 51.0 % [facility] Hemoglobin (Bld) [Mass/Vol] 11.7 g/dL Low 13.0 - 17.0 g/dL [facility] Immature granulocytes (Bld) [#/Vol] [facility] Immature granulocytes/100 WBC (Bld) 0.3 % [facility] Interpretation and review of laboratory results Abnormal [facility] Lymphocytes (Bld) [#/Vol] 0.8 10*3/uL Low [facility] Lymphocytes/100 WBC (Bld) 13.6 % [facility] MCH (RBC) [Entitic mass] 27.9 pg 26. 0 - 34.0 pg [facility] MCHC (RBC) [Mass/Vol] 30.5 g/dL 30.5 - 36.0 g/dL [facility] MCV (RBC) [Entitic vol] 91.4 fL 80.0 - 100.0 fL [facility] Monocytes (Bld) [#/Vol] 0.51 10*3/uL [facility] Monocytes/100 WBC (Bld) 8.7 % [facility] Neutrophils (Bld) [#/Vol] 4.25 10*3/uL [facility] Neutrophils/100 WBC (Bld) 72.2 % [facility] Nucleated RBC (Bld) [#/Vol] [facility] Nucleated RBC/100 WBC (Bld) [Ratio] 0 % /100 WBC [facility] Platelet mean volume (Bld) [Entitic vol] 10.5 fL 9.0 - 12.7 fL [facility] Platelets (Bld) [#/Vol] 310 10*3/uL [facility] RBC (Bld) [#/Vol] 4.19 10*6/uL Low 4.20 - 6.0 0 m/uL [facility] WBC (Bld) [#/Vol] 5.89 10*3/uL [facility] Anion gap in Serum or Plasma Ordered By: Carla Prather on 12-02-2024 Anion gap [Moles/Vol] 11 mmol/L 10-31 [facility] BUN/creatinine ratioOrdered By: Carla Prather on 12-02-2024 Urea nitrogen/Creatinine [Mass ratio] 23.5 mg/mg High 04-07 [facility] Basic Metabolic Profile (BMP )on 12-02-2024 BUN/CRE 23.5 RATIO High 04-07 [facility] Comment on above: Order Comment: 307.2 Performed By: #### L 100.0500, L500.2500, L506.1001 ####[facility] [address] [place], [address] Calcium [Mass/Vol] 9.4 mg/dL Normal 7.6-11.0 [facility] Comment on above: Order Comment: 307.2 Performed By: #### L 100.0500, L500.2500, L506.1001 ####[facility] [address] [place], [address] Chloride [Moles/Vol] 104 mmol/L Normal 98-108 [facility] Comment on above: Order Comment: 307.2 Performed By: #### L 100.0500, L500.2500, L506.1001 ####[facility] [address] [place], [address] CO2 [Moles/Vol] 25.5 mmol/L Normal 21.0-32.0 [facility] Comment on above: Order Comment: 307.2 Performed By: #### L 100.0500, L500.2500, L506.1001 ####[facility] [address] [place], [address] Creatinine [Mass/Vol] 1.21 mg/dL High 0.70-1.20 [facility] Comment on above: Order Comment: 307.2 Performed By: #### L 100.0500, L500.2500, L506.1001 ####[facility] [address] [place], [address] GAP 11 Normal 5-15 [facility] Comment on above: Order Comment: 307.2 Performed By: #### L 100.0500, L500.2500, L506.1001 ####[facility] [address] [place], [address] GFR/1.73 sq M.predicted among non-blacks MDRD (S/P/Bld) [Vol rate/Area] 62 mL/min/{1.73_m2} Normal >60 [facility] Comment on above: Order Comment: 307.2 Result Comment: mL/m in/1.73m2 CKD-EPI Creatinine Equation (2020) Performed By: #### L 100.0500, L500.2500, L506.1001 ####[facility] [address] [place], [address] Glucose [Mass/Vol] 86 mg/dL Normal 70-99 [facility] Comment on above: Order Comment: 307.2 Performed By: #### L 100.0500, L500.2500, L506.1001 ####[facility] [address] [place], [address] Potassium [Moles/Vol] 4.1 mmol/L Normal 3.3-5.1 [facility] Comment on above: Order Comment: 307.2 Performed By: #### L 100.0500, L500.2500, L506.1001 ####[facility] [address] [place], [address] Sodium [Moles/Vol] 141 mmol/L Normal 133-145 [facility] Comment on above: Order Comment: 307.2 Performed By: #### L 100.0500, L500.2500, L506.1001 ####[facility] [address] [place], [address] Urea nitrogen [Mass/Vol] 28 mg/dL High 4-19 [facility] Comment on above: Order Comment: 307.2 Performed By: #### L 100.0500, L500.2500, L506.1001 ####[facility] [address] [place], [address] CBC-Complete Blood Cnt No Di ffon 12-02-2024 Erythrocyte distribution width (RBC) [Ratio] 13.2 % Normal 11.6-14.6 [facility] Comment on above: Order Comment: 307.2 Performed By: #### L 100.0500, L500.2500, L506.1001 ####[facility] [address] [place], [address] Hematocrit (Bld) [Volume fraction] 35.2 % Low 40-54 [facility] Comment on above: Order Comment: 307.2 Performed By: #### L 100.0500, L500.2500, L506.1001 ####[facility] [address] [place], [address] Hemoglobin (Bld) [Mass/Vol] 11.1 g/dL Low 13.0-16.5 [facility] Comment on above: Order Comment: 307.2 Performed By: #### L 100.0500, L500.2500, L506.1001 ####[facility] [address] [place], [address] MCH (RBC) [Entitic mass] 28.6 pg Normal 27.0-32.0 [facility] Comment on above: Order Comment: 307.2 Performed By: #### L 100.0500, L500.2500, L506.1001 ####[facility] [address] [place], [address] MCHC (RBC) [Mass/Vol] 31.5 g/dL Low 32-36 [facility] Comment on above: Order Comment: 307.2 Performed By: #### L 100.0500, L500.2500, L506.1001 ####[facility] [address] [place], [address] MCV (RBC) [Entitic vol] 90.7 fL Normal 80-94 [facility] Comment on above: Order Comment: 307.2 Performed By: #### L 100.0500, L500.2500, L506.1001 ####[facility] [address] [place], [address] Platelet mean volume (Bld) [Entitic vol] 10.2 fL Normal 6.2-12.0 [facility] Comment on above: Order Comment: 307.2 Performed By: #### L 100.0500, L500.2500, L506.1001 ####[facility] [address] [place], [address] Platelets (Bld) [#/Vol] 314 10*3/uL Normal 150-450 [facility] Comment on above: Order Comment: 307.2 Performed By: #### L 100.0500, L500.2500, L506.1001 ####[facility] [address] [place], [address] RBC (Bld) [#/Vol] 3.88 10*6/uL Low 4.6-6.2 [facility] Comment on above: Order Comment: 307.2 Performed By: #### L 100.0500, L500.2500, L506.1001 ####[facility] [address] [place], [address] RDW SD 43.6 fl Normal 35.1-43.9 [facility] Comment on above: Order Comment: 307.2 Performed By: #### L 100.0500, L500.2500, L506.1001 ####[facility] [address] [place], [address] WBC (Bld) [#/Vol] 5.1 10*3/uL Normal 4.4-11.0 [facility] Comment on above: Order Comment: 307.2 Performed By: #### L 100.0500, L500.2500, L506.1001 ####[facility] [address] [place], [address] Carbon dioxide, total [Moles /volume] in Central venous bloodOrdered By: Carla Prather on 12-02-2024 CO2 [Moles/Vol] 25.5 mmol/L 21.0-32.0 [facility] Chloride assayOrdered By: Wilfredo Prather on 12-02-2024 Chloride [Moles/Vol] 104 mmol/L 98-108 [facility] Erythrocyte distribution wid th ratioOrdered By: Carla Prather on 12-02-2024 Erythrocyte distribution width (RBC) [Ratio] 13.2 % 11.6-14.6 [facility] Erythrocyte distribution wid th standard deviationOrdered By: Carla Prather on 12-02-2024 Erythrocyte distribution width (RBC) [Ratio] 43.6 fl 35.1-43.9 [facility] Glomerular filtration rate ( GFR) estimation/1.73 sq m using serum, plasma, or whole bOrdered By: Carla Prather on 12-02-2024 GFR/1.73 sq M.predicted among non-blacks MDRD (S/P/Bld) [Vol rate/Area] 62 mL/min/{1.73_m2} >60 [facility] Comment on above: mL/min/1.73m2 CKD-EP I Creatinine Equation (2020) Hematocrit Auto (Bld) [Volum e fraction]Ordered By: Carla Prather on 12-02-2024 Hematocrit (Bld) [Volume fraction] 35.2 % Low 40-54 [facility] Hemoglobin measurementOrdere d By: Carla Prather on 12-02-2024 Hemoglobin (Bld) [Mass/Vol] 11.1 g/dL Low 13.0-16.5 [facility] MCV (mean corpuscular volume ) determinationOrdered By: Carla Prather on 12-02-2024 MCV (RBC) [Entitic vol] 90.7 fL 80-94 [facility] Mean corpuscular hemoglobin (MCH) determinationOrdered By: Carla Prather on 12-02-2024 MCH (RBC) [Entitic mass] 28.6 pg 27.0-32.0 [facility] Mean corpuscular hemoglobin concentration (MCHC) determinationOrdered By: Carla Prather on 12-02-2024 MCHC (RBC) [Mass/Vol] 31.5 g/dL Low 32-36 [facility] Mean platelet volume determi nationOrdered By: Carla Prather on 12-02-2024 Platelet mean volume (Bld) [Entitic vol] 10.2 fL 6.2-12.0 [facility] Platelet countOrdered By: Wilfredo Prather on 12-02-2024 Platelets (Bld) [#/Vol] 314 10*3/uL 150-450 [facility] Potassium measurement (mass/ volume)Ordered By: Carla Prather on 12-02-2024 Potassium (Unsp spec) [Mass/Vol] 4.1 mmol/L 3.3-5.1 [facility] RBC Auto (Bld) [#/Vol]Ordere d By: Carla Prather on 12-02-2024 RBC (Bld) [#/Vol] 3.88 10*6/uL Low 4.6-6.2 [facility] Serum creatinine measurement (mass/volume)Ordered By: Carla Prather on 12-02-2024 Creatinine [Mass/Vol] 1.21 mg/dL High 0.70-1.20 [facility] Serum glucose measurement (m ass/volume)Ordered By: Carla Prather on 12-02-2024 Glucose [Mass/Vol] 86 mg/dL 70-99 [facility] Serum or plasma calcium luis urement (mass/volume)Ordered By: Carla Prather on 12-02-2024 Calcium [Mass/Vol] 9.4 mg/dL 7.6-11.0 [facility] Serum or plasma urea nitroge n measurement (mass/volume)Ordered By: Carla Prather on 12-02-2024 Urea nitrogen [Mass/Vol] 28 mg/dL High 4-19 [facility] Sodium levelOrdered By: Luca Prather on 12-02-2024 Sodium [Moles/Vol] 141 mmol/L 133-145 [facility] Vitamin D,25 Hydroxyon 12-02 Vitamin D 25-OH 46.6 ng/mL Normal 30-100 [facility] Comment on above: Order Comment: 307.2 Result Comment: Teri min D StatusDeficiency: <20 ng/mL (50nmol/L)Insufficiency: 20-30 ng/mL (50-75 nmol/L)Sufficiency: 30-100 ng/mL (75-250 nmol/L)Toxicity: >100 ng/mL (>250 nmol/L) Performed By: #### L 100.0500, L500.2500, L506.1001 ####[facility] [address] [place], [address] White blood cell (WBC) count Ordered By: Carla Prather on 12-02-2024 WBC (Bld) [#/Vol] 5.1 10*3/uL 4.4-11.0 [facility] Calculated very low density lipoprotein (VLDL) cholesterol measurementOrdered By: Carla Prather on 11-05-2024 Calculated very low density lipoprotein (VLDL) cholesterol measurement 13 mg/dL 5-40 [facility] LDL calc ser/plasOrdered By: Carla Prather on 11-05-2024 Cholesterol in LDL [Mass/Vol] 63 mg/dL [facility] Comment on above: Hqsjvxkfaz=790-666 m g/dL & Higher Bhrx=107 mg/dL or greater Lipid Profileon 11-05-2024 CHOL:HDL 2.18 Normal [facility] Comment on above: Order Comment: 307.2 Performed By: #### L 500.4100, L506.1001 ####[facility] [address] [place], [address] Cholesterol [Mass/Vol] 140 mg/dL Normal <=200 [facility] Comment on above: Order Comment: 307.2 Result Comment: Chol esterol level, Desirable <200 mg/dLBorderline high cholesterol 200-239 mg/dLHigh cholesterol >=240 mg/dLRecommendations of the NCEP Adult Treatment Panel for thefollowing risk-cutoff thresholds for the [place] Americanpulation. Performed By: #### L 500.4100, L506.1001 ####[facility] [address] [place], [address] Cholesterol in HDL [Mass/Vol] 64 mg/dL Normal [facility] Comment on above: Order Comment: 307.2 Result Comment: Yasmin onal Cholesterol Education Program (NCEP) guidelines:<40 mg/dL: Low HDL-cholesterol (major risk factor for CHD)>= 60 mg/dL: High HDL-cholesterol (negative risk factor forCHD)HDL-cholesterol is affected by a number of factors, e.g.smoking, exercise, hormones, sex and age. Performed By: #### L 500.4100, L506.1001 ####[facility] [address] [place], [address] Cholesterol in LDL [Mass/Vol] 63 mg/dL Normal [facility] Comment on above: Order Comment: 307.2 Result Comment: Bord tsekfw=005-945 mg/dL Higher Xjfo=131 mg/dL or greater Performed By: #### L 500.4100, L506.1001 ####[facility] [address] [place], [address] Cholesterol in VLDL [Mass/Vol] 13 mg/dL Normal 5-40 [facility] Comment on above: Order Comment: 307.2 Performed By: #### L 500.4100, L506.1001 ####[facility] [address] [place], [address] Triglyceride [Mass/Vol] 63 mg/dL Normal [facility] Comment on above: Order Comment: 307.2 Result Comment: The drugs N-Acetylcysteine and Metamizole may falselydepress this assay.Normal range: <150 mg/dLBorderline High: 150-199 mg/dLHigh: 200-499 mg/dLVery High: >500 mg/dL Performed By: #### L 500.4100, L506.1001 ####[facility] [address] [place], [address] Screening total cholesterol/ high density lipoprotein (HDL) cholesterol ratioOrdered By: Carla Prather on 11-05-2024 Cholesterol.total/Choles terol in HDL [Mass ratio] 2.18 {ratio} [facility] Serum or plasma cholesterol in HDL measurement (mass/volume)Ordered By: Carla Prather on 11-05-2024 Cholesterol in HDL [Mass/Vol] 64 mg/dL >40 [facility] Comment on above: National Cholesterol Education Program (NCEP) guidelines:<40 mg/dL: Low HDL-cholesterol (major risk factor for CHD)>= 60 mg/dL: High HDL-cholesterol (negative risk factor for CHD)HDL-cholesterol is affected by a number of factors, e.g. smoking, exercise, hormones, sex and age. Serum or plasma cholesterol measurement (mass/volume)Ordered By: Carla Prather on 11-05-2024 Cholesterol [Mass/Vol] 140 mg/dL <[address] [facility] Comment on above: Cholesterol level, D esirable <200 mg/dLBorderline high cholesterol 200-239 mg/dLHigh cholesterol >=240 mg/dLRecommendations of the NCEP Adult Treatment Panel for the following risk-cutoff thresholds for the [place] population. Triglycerides measurementOrd ered By: Carla Prather on 11-05-2024 Triglyceride [Mass/Vol] 63 mg/dL <199 [facility] Comment on above: The drugs N-Acetylcy steine and Metamizole may falsely depress this assay. Normal range: <150 mg/dLBorderline High: 150-199 mg/dLHigh: 200-499 mg/dLVery High: >500 mg/dL Vitamin D,25 Hydroxyon 11-05 Vitamin D 25-OH 51.2 ng/mL Normal 30-100 [facility] Comment on above: Order Comment: 307.2 Result Comment: Teri min D StatusDeficiency: <20 ng/mL (50nmol/L)Insufficiency: 20-30 ng/mL (50-75 nmol/L)Sufficiency: 30-100 ng/mL (75-250 nmol/L)Toxicity: >100 ng/mL (>250 nmol/L) Performed By: #### L 500.4100, L506.1001 ####[facility] [address] [place], [address] Lipid Profileon 11-04-2024 CHOL Normal <=200 [facility] Comment on above: Order Comment: 307-2 Result Comment: MICHOACANO ENT REFUSED-NOTFIED NURSE Performed By: #### L 500.4100 ####[facility] [address] [place], [address] CHOL:HDL Normal [facility] Comment on above: Order Comment: 307-2 Result Comment: MICHOACANO ENT REFUSED-NOTFIED NURSE Performed By: #### L 500.4100 ####[facility] [address] [place], [address] CLDL Normal [facility] Comment on above: Order Comment: 307-2 Result Comment: MICHOACANO ENT REFUSED-NOTFIED NURSE Performed By: #### L 500.4100 ####[facility] [address] [place], [address] HDL Normal [facility] Comment on above: Order Comment: 307-2 Result Comment: MICHOACANO ENT REFUSED-NOTFIED NURSE Performed By: #### L 500.4100 ####[facility] [address] [place], [address] TRIG Normal [facility] Comment on above: Order Comment: 307-2 Result Comment: MICHOACANO ENT REFUSED-NOTFIED NURSE Performed By: #### L 500.4100 ####[facility] [address] [place], [address] VLDL Normal 5-40 [facility] Comment on above: Order Comment: 307-2 Result Comment: MICHOACANO ENT REFUSED-NOTFIED NURSE Performed By: #### L 500.4100 ####[facility] [address] [place], [address] Carbamazepine (Tegretol)on 0 10-16-2024 CARBAMAZEPINE 7.1 ug/mL Normal 4.0-12.0 [facility] Comment on above: Order Comment: 300 Performed By: #### L 501.7900 ####[facility] [address] [place], [address] Serum or plasma carbamazepin e level (mass/volume)Ordered By: Carla Prather on 10-16-2024 carBAMazepine [Mass/Vol] 7.1 ug/mL 4.0-12.0 [facility] Urine Cultureon 09-08-2024 URC Normal [facility] Comment on above: Performed By: #### M 100.2200, L400.0001 ####[facility] [address] [place], [address] Anion gap in Serum or Plasma Ordered By: Celia Toribio on 09-02-2024 Anion gap [Moles/Vol] 11 mmol/L 5-15 [facility] BUN/creatinine ratioOrdered By: Celia Toribio on 09-02-2024 Urea nitrogen/Creatinine [Mass ratio] 27.0 mg/mg High 10-20 [facility] Basic Metabolic Profile (BMP )on 09-02-2024 BUN/CRE 27.0 RATIO High - [facility] Comment on above: Performed By: #### L 500.2500, L100.0100 ####[facility] [address] [place], [address] Calcium [Mass/Vol] 9.2 mg/dL Normal 7.6-11.0 [facility] Comment on above: Performed By: #### L 500.2500, L100.0100 ####[facility] [address] [place], [address] Chloride [Moles/Vol] 106 mmol/L Normal 98-108 [facility] Comment on above: Performed By: #### L 500.2500, L100.0100 ####[facility] [address] [place], [address] CO2 [Moles/Vol] 20.8 mmol/L Low 21.0-32.0 [facility] Comment on above: Performed By: #### L 500.2500, L100.0100 ####[facility] [address] [place], [address] Creatinine [Mass/Vol] 1.22 mg/dL High 0.70-1.20 [facility] Comment on above: Performed By: #### L 500.2500, L100.0100 ####[facility] [address] [place], [address] ECRCL 50.54 ml/min Normal 50-250 [facility] Comment on above: Performed By: #### L 500.2500, L100.0100 ####[facility] [address] [place], [address] GAP 11 Normal 5-15 [facility] Comment on above: Performed By: #### L 500.2500, L100.0100 ####[facility] [address] [place], [address] GFR/1.73 sq M.predicted among non-blacks MDRD (S/P/Bld) [Vol rate/Area] 62 mL/min/{1.73_m2} Normal >60 [facility] Comment on above: Result Comment: mL/m in/1.73m2 CKD-EPI Creatinine Equation (2020) Performed By: #### L 500.2500, L100.0100 ####[facility] [address] [place], [address] Glucose [Mass/Vol] 99 mg/dL Normal 70-99 [facility] Comment on above: Performed By: #### L 500.2500, L100.0100 ####[facility] [address] [place], [address] Potassium [Moles/Vol] 4.0 mmol/L Normal 3.3-5.1 [facility] Comment on above: Performed By: #### L 500.2500, L100.0100 ####[facility] [address] [place], [address] Sodium [Moles/Vol] 138 mmol/L Normal 133-145 [facility] Comment on above: Performed By: #### L 500.2500, L100.0100 ####[facility] [address] [place], [address] Urea nitrogen [Mass/Vol] 33 mg/dL High 4-19 [facility] Comment on above: Performed By: #### L 500.2500, L100.0100 ####[facility] [address] [place], [address] CBC W/Diff, Automatedon 03- Absolute Neut Normal 2.0-7.7 [facility] Comment on above: Result Comment: Canc elled via OM: MD Ordered Performed By: #### L 500.2500, L100.0100 ####[facility] [address] [place], [address] HCT Normal 40-54 [facility] Comment on above: Result Comment: Canc elled via OM: MD Ordered Performed By: #### L 500.2500, L100.0100 ####[facility] [address] [place], [address] HGB Normal 13.0-16.5 [facility] Comment on above: Result Comment: Canc elled via OM: MD Ordered Performed By: #### L 500.2500, L100.0100 ####[facility] [facility] [id number] [place], [address] MCH Normal 27.0-32.0 [facility] Comment on above: Result Comment: Canc elled via OM: MD Ordered Performed By: #### L 500.2500, L100.0100 ####[facility] [address] [place], [address] MCHC Normal 32-36 [facility] Comment on above: Result Comment: Canc elled via OM: MD Ordered Performed By: #### L 500.2500, L100.0100 ####[facility] [address] [place], [address] MCV Normal 80-94 [facility] Comment on above: Result Comment: Canc elled via OM: MD Ordered Performed By: #### L 500.2500, L100.0100 ####[facility] [address] [place], [address] NEUT% Normal 47-70 [facility] Comment on above: Result Comment: Canc elled via OM: MD Ordered Performed By: #### L 500.2500, L100.0100 ####[facility] [address] [place], [address] PLT Normal 150-450 [facility] Comment on above: Result Comment: Canc elled via OM: MD Ordered Performed By: #### L 500.2500, L100.0100 ####[facility] [address] [place], [address] RBC Normal 4.6-6.2 [facility] Comment on above: Result Comment: Canc elled via OM: MD Ordered Performed By: #### L 500.2500, L100.0100 ####[facility] [address] [place], [address] RDW CV Normal 11.6-14.6 [facility] Comment on above: Result Comment: Canc elled via OM: MD Ordered Performed By: #### L 500.2500, L100.0100 ####[facility] [address] [place], [address] RDW SD Normal 35.1-43.9 [facility] Comment on above: Result Comment: Canc elled via OM: MD Ordered Performed By: #### L 500.2500, L100.0100 ####[facility] [address] [place], [address] WBC Normal 4.4-11.0 [facility] Comment on above: Result Comment: Canc elled via OM: MD Ordered Performed By: #### L 500.2500, L100.0100 ####[facility] [address] [place], [address] Carbon dioxide, total [Moles /volume] in Central venous bloodOrdered By: Celia Toribio on 09-02-2024 CO2 [Moles/Vol] 20.8 mmol/L Low 21.0-32.0 [facility] Chloride assayOrdered By: Yariel Toribio on 09-02-2024 Chloride [Moles/Vol] 106 mmol/L 98-108 [facility] Estimation of creatinine zeke aranceOrdered By: Celia Toribio on 09-02-2024 Estimated Creatinine Clearance Calc 50.54 ml/min 50-250 [facility] GFR/1.73 sq M.predicted gisella g non-blacks MDRD (S/P/Bld) [Vol rate/Area]Ordered By: Celia Toribio on 09-02-2024 Estimated GFR (MDRD) Non-Af Amer 62 >60 [facility] Comment on above: mL/min/1.73m2 CKD-EP I Creatinine Equation (2020) Glomerular filtration rate ( GFR) estimation/1.73 sq m using serum, plasma, or whole bOrdered By: Celia Toribio on 09-02-2024 GFR/1.73 sq M.predicted among non-blacks MDRD (S/P/Bld) [Vol rate/Area] 62 mL/min/{1.73_m2} >60 [facility] Comment on above: mL/min/1.73m2 CKD-EP I Creatinine Equation (2020) Potassium (Unsp spec) [Mass/ Vol]Ordered By: Celia Toribio on 09-02-2024 Potassium [Moles/Vol] 4.0 mmol/L 3.3-5.1 [facility] Potassium measurement (mass/ volume)Ordered By: Celia Toribio on 09-02-2024 Potassium (Unsp spec) [Mass/Vol] 4.0 mmol/L 3.3-5.1 [facility] Serum creatinine measurement (mass/volume)Ordered By: Celia Toribio on 09-02-2024 Creatinine [Mass/Vol] 1.22 mg/dL High 0.70-1.20 [facility] Serum glucose measurement (m ass/volume)Ordered By: Celia Toribio on 09-02-2024 Glucose [Mass/Vol] 99 mg/dL 70-99 [facility] Serum or plasma calcium luis urement (mass/volume)Ordered By: Celia Toribio on 09-02-2024 Calcium [Mass/Vol] 9.2 mg/dL 7.6-11.0 [facility] Serum or plasma urea nitroge n measurement (mass/volume)Ordered By: Celia Toribio on 09-02-2024 Urea nitrogen [Mass/Vol] 33 mg/dL High 4-19 [facility] Sodium levelOrdered By: Rigoberto Toribio on 09-02-2024 Sodium [Moles/Vol] 138 mmol/L 133-145 [facility] Absolute lymphocyte countOrd ered By: Celia Toribio on 09-01-2024 Lymphocytes Auto (Unsp spec) [#/Vol] 1.45 10*3/uL 0.83-4.51 [facility] Absolute neutrophil countOrd ered By: Celia Toribio on 09-01-2024 Neutrophils (Bld) [#/Vol] 4.9 10*3/uL 2.0-7.7 [facility] Automated lymphocyte count a s percentage of total leukocytesOrdered By: Celia Toribio on 09-01-2024 Lymphocytes/100 WBC Auto (Unsp spec) 20.9 % 19-41 [facility] Basic Metabolic Profile (BMP )on 09-01-2024 BUN/CRE 26.8 RATIO High 10-20 [facility] Comment on above: Order Comment: PT RE FUSED REPORTED TO ОЛЕГ STORY. ОЛЕГ STORY SAID SHE WOULDTRY TO DRAW. Performed By: #### L 500.2500 ####[facility] [address] [place], [address] Calcium [Mass/Vol] 9.6 mg/dL Normal 7.6-11.0 [facility] Comment on above: Order Comment: PT RE FUSED REPORTED TO ОЛЕГ STORY. ОЛЕГ STORY SAID SHE WOULDTRY TO DRAW. Performed By: #### L 500.2500 ####[facility] [address] [place], [address] Chloride [Moles/Vol] 102 mmol/L Normal 98-108 [facility] Comment on above: Order Comment: PT RE FUSED REPORTED TO ОЛЕГ STORY. ОЛЕГ STORY SAID SHE WOULDTRY TO DRAW. Performed By: #### L 500.2500 ####[facility] [address] [place], [place], [address] CO2 [Moles/Vol] 21.9 mmol/L Normal 21.0-32.0 [facility] Comment on above: Order Comment: PT RE FUSED REPORTED TO ОЛЕГ STORY. ОЛЕГ STORY SAID SHE WOULDTRY TO DRAW. Performed By: #### L 500.2500 ####[facility] [address] [place], [address] Creatinine [Mass/Vol] 1.44 mg/dL High 0.70-1.20 [facility] Comment on above: Order Comment: PT RE FUSED REPORTED TO ОЛЕГ STORY. ОЛЕГ STORY SAID SHE WOULDTRY TO DRAW. Performed By: #### L 500.2500 ####[facility] [address] [facility] [address] ECRCL 42.38 ml/min Low 50-250 [facility] Comment on above: Order Comment: PT RE FUSED REPORTED TO ОЛЕГ STORY. ОЛЕГ STORY SAID SHE WOULDTRY TO DRAW. Performed By: #### L 500.2500 ####[facility] [address] [facility] [address] GAP 13 Normal 5-15 [facility] Comment on above: Order Comment: PT RE FUSED REPORTED TO ОЛЕГ STORY. ОЛЕГ STORY SAID SHE WOULDTRY TO DRAW. Performed By: #### L 500.2500 ####[facility] [address] [place], [address] GFR/1.73 sq M.predicted among non-blacks MDRD (S/P/Bld) [Vol rate/Area] 51 mL/min/{1.73_m2} Low >60 [facility] Comment on above: Order Comment: PT RE FUSED REPORTED TO ОЛЕГ STORY. ОЛЕГ TSORY SAID SHE WOULDTRY TO DRAW. Result Comment: mL/m in/1.73m2 CKD-EPI Creatinine Equation (2020) Performed By: #### L 500.2500 ####[facility] [address] [place], [address] Glucose [Mass/Vol] 118 mg/dL High 70-99 [facility] Comment on above: Order Comment: PT RE FUSED REPORTED TO ОЛЕГ STORY. RN JEZ SAID SHE WOULDTRY TO DRAW. Performed By: #### L 500.2500 ####[facility] [address] [place], [address] Potassium [Moles/Vol] 4.1 mmol/L Normal 3.3-5.1 [facility] Comment on above: Order Comment: PT RE FUSED REPORTED TO ОЛЕГ STORY. RN JEZ SAID SHE WOULDTRY TO DRAW. Performed By: #### L 500.2500 ####[facility] [address] [place], [address] Sodium [Moles/Vol] 137 mmol/L Normal 133-145 [facility] Comment on above: Order Comment: PT RE FUSED REPORTED TO RN JEZ. RN JEZ SAID SHE WOULDTRY TO DRAW. Performed By: #### L 500.2500 ####[facility] [address] [place], [address] Urea nitrogen [Mass/Vol] 39 mg/dL High 4-19 [facility] Comment on above: Order Comment: PT RE FUSED REPORTED TO ОЛЕГ STORY. RN JEZ SAID SHE WOULDTRY TO DRAW. Performed By: #### L 500.2500 ####[facility] [address] [place], [address] BUN/CRE 30.2 RATIO High 10-20 [facility] Comment on above: Performed By: #### L 100.0100, L500.2500 ####[facility] [address] [place], [address] Calcium [Mass/Vol] 9.7 mg/dL Normal 7.6-11.0 [facility] Comment on above: Performed By: #### L 100.0100, L500.2500 ####[facility] [address] [place], [address] Chloride [Moles/Vol] 103 mmol/L Normal 98-108 [facility] Comment on above: Performed By: #### L 100.0100, L500.2500 ####[facility] [address] [place], [address] CO2 [Moles/Vol] 19.4 mmol/L Low 21.0-32.0 [facility] Comment on above: Performed By: #### L 100.0100, L500.2500 ####[facility] [address] [place], [address] Creatinine [Mass/Vol] 1.33 mg/dL High 0.70-1.20 [facility] Comment on above: Performed By: #### L 100.0100, L500.2500 ####[facility] [address] [place], [address] ECRCL 45.89 ml/min Low 50-250 [facility] Comment on above: Performed By: #### L 100.0100, L500.2500 ####[facility] [address] [place], [address] GAP 16 High 5-15 [facility] Comment on above: Performed By: #### L 100.0100, L500.2500 ####[facility] [address] [place], [address] GFR/1.73 sq M.predicted among non-blacks MDRD (S/P/Bld) [Vol rate/Area] 56 mL/min/{1.73_m2} Low >60 [facility] Comment on above: Result Comment: mL/m in/1.73m2 CKD-EPI Creatinine Equation (2020) Performed By: #### L 100.0100, L500.2500 ####[facility] [address] [place], [address] Glucose [Mass/Vol] 83 mg/dL Normal 70-99 [facility] Comment on above: Performed By: #### L 100.0100, L500.2500 ####[facility] [address] [place], [address] Potassium [Moles/Vol] 3.8 mmol/L Normal 3.3-5.1 [facility] Comment on above: Performed By: #### L 100.0100, L500.2500 ####[facility] [address] [place], [address] Sodium [Moles/Vol] 139 mmol/L Normal 133-145 [facility] Comment on above: Performed By: #### L 100.0100, L500.2500 ####[facility] [address] [place], [address] Urea nitrogen [Mass/Vol] 40 mg/dL High 4-19 [facility] Comment on above: Performed By: #### L 100.0100, L500.2500 ####[facility] [address] [place], [address] Basophil percentageOrdered B y: Celia Toribio on 09-01-2024 Basophils/100 WBC (Bld) 1.0 % 0-1 [facility] CBC W/Diff, Automatedon 08-17 Absolute Lymph 1.45 X10 3/uL Normal 0.83-4.51 [facility] Comment on above: Performed By: #### L 100.0100 ####[facility] [address] [place], [address] Absolute Neut 4.9 X10 3/uL Normal 2.0-7.7 [facility] Comment on above: Performed By: #### L 100.0100 ####[facility] [address] [place], [address] Basophils/100 WBC (Bld) 1.0 % Normal 0-1 [facility] Comment on above: Performed By: #### L 100.0100 ####[facility] [address] [place], [address] Eosinophils/100 WBC (Bld) 0.4 % Normal 0-5 [facility] Comment on above: Performed By: #### L 100.0100 ####[facility] [address] [place], [address] Erythrocyte distribution width (RBC) [Ratio] 13.3 % Normal 11.6-14.6 [facility] Comment on above: Performed By: #### L 100.0100 ####[facility] [address] [place], [address] Hematocrit (Bld) [Volume fraction] 43.2 % Normal 40-54 [facility] Comment on above: Performed By: #### L 100.0100 ####[facility] [address] [place], [address] Hemoglobin (Bld) [Mass/Vol] 14.1 g/dL Normal 13.0-16.5 [facility] Comment on above: Performed By: #### L 100.0100 ####[facility] [address] [place], [address] IG% 0.600 Normal 0.0-0.9 [facility] Comment on above: Result Comment: IG% - Immature Granulocytes (promyelocytes, myelocytes andmetamyelocytes) > 1% indicates that a LEFT SHIFT is Present. Performed By: #### L 100.0100 ####[facility] [address] [place], [address] Lymphocytes/100 WBC (Bld) 20.9 % Normal 19-41 [facility] Comment on above: Performed By: #### L 100.0100 ####[facility] [address] [place], [address] MCH (RBC) [Entitic mass] 31.4 pg Normal 27.0-32.0 [facility] Comment on above: Performed By: #### L 100.0100 ####[facility] [address] [place], [address] MCHC (RBC) [Mass/Vol] 32.6 g/dL Normal 32-36 [facility] Comment on above: Performed By: #### L 100.0100 ####[facility] [address] [place], [address] MCV (RBC) [Entitic vol] 96.2 fL High 80-94 [facility] Comment on above: Performed By: #### L 100.0100 ####[facility] [address] [place], [address] Monocytes/100 WBC (Bld) 6.2 % Normal 0-10 [facility] Comment on above: Performed By: #### L 100.0100 ####[facility] [address] [place], [address] Neutrophils/100 WBC (Bld) 70.9 % High 47-70 [facility] Comment on above: Performed By: #### L 100.0100 ####[facility] [address] [place], [address] Nucleated RBC (Bld) [#/Vol] 0 10*3/uL Normal 0-5 [facility] Comment on above: Performed By: #### L 100.0100 ####[facility] [address] [place], [address] Platelet mean volume (Bld) [Entitic vol] 9.5 fL Normal 6.2-12.0 [facility] Comment on above: Performed By: #### L 100.0100 ####[facility] [address] [place], [address] Platelets (Bld) [#/Vol] 367 10*3/uL Normal 150-450 [facility] Comment on above: Performed By: #### L 100.0100 ####[facility] [address] [place], [address] RBC (Bld) [#/Vol] 4.49 10*6/uL Low 4.6-6.2 [facility] Comment on above: Performed By: #### L 100.0100 ####[facility] [address] [place], [address] RDW SD 47.4 fl High 35.1-43.9 [facility] Comment on above: Performed By: #### L 100.0100 ####[facility] [address] [place], [address] WBC (Bld) [#/Vol] 6.9 10*3/uL Normal 4.4-11.0 [facility] Comment on above: Performed By: #### L 100.0100 ####[facility] [address] [place], [address] Absolute Neut Normal 2.0-7.7 [facility] Comment on above: Result Comment: Canc elled via OM: MD Ordered Performed By: #### L 100.0100, L500.2500 ####[facility] [address] [place], [address] HCT Normal 40-54 [facility] Comment on above: Result Comment: Canc elled via OM: MD Ordered Performed By: #### L 100.0100, L500.2500 ####[facility] [address] [place], [address] HGB Normal 13.0-16.5 [facility] Comment on above: Result Comment: Canc elled via OM: MD Ordered Performed By: #### L 100.0100, L500.2500 ####[facility] [address] [place], [address] MCH Normal 27.0-32.0 [facility] Comment on above: Result Comment: Canc elled via OM: MD Ordered Performed By: #### L 100.0100, L500.2500 ####[facility] [address] [place], [address] MCHC Normal 32-36 [facility] Comment on above: Result Comment: Canc elled via OM: MD Ordered Performed By: #### L 100.0100, L500.2500 ####[facility] [address] [place], [address] MCV Normal 80-94 [facility] Comment on above: Result Comment: Canc elled via OM: MD Ordered Performed By: #### L 100.0100, L500.2500 ####[facility] [address] [place], [address] NEUT% Normal 47-70 [facility] Comment on above: Result Comment: Canc elled via OM: MD Ordered Performed By: #### L 100.0100, L500.2500 ####[facility] [address] [place], [address] PLT Normal 150-450 [facility] Comment on above: Result Comment: Canc elled via OM: MD Ordered Performed By: #### L 100.0100, L500.2500 ####[facility] [address] [place], [address] RBC Normal 4.6-6.2 [facility] Comment on above: Result Comment: Canc elled via OM: MD Ordered Performed By: #### L 100.0100, L500.2500 ####[facility] [address] [place], [address] RDW CV Normal 11.6-14.6 [facility] Comment on above: Result Comment: Canc elled via OM: MD Ordered Performed By: #### L 100.0100, L500.2500 ####[facility] [address] [place], [address] RDW SD Normal 35.1-43.9 [facility] Comment on above: Result Comment: Canc elled via OM: MD Ordered Performed By: #### L 100.0100, L500.2500 ####[facility] [address] [place], [address] WBC Normal 4.4-11.0 [facility] Comment on above: Result Comment: Canc elled via OM: MD Ordered Performed By: #### L 100.0100, L500.2500 ####[facility] [address] [place], [address] Eosinophil percentageOrdered By: Celia Toribio on 09-01-2024 Eosinophils/100 WBC (Bld) 0.4 % 0-5 [facility] Erythrocyte distribution wid th ratioOrdered By: Celia Toribio on 09-01-2024 Erythrocyte distribution width (RBC) [Ratio] 13.3 % 11.6-14.6 [facility] Erythrocyte distribution wid th standard deviationOrdered By: Celia Toribio on 09-01-2024 Erythrocyte distribution width (RBC) [Entitic vol] 47.4 fL High 35.1-43.9 [facility] Erythrocyte distribution width (RBC) [Ratio] 47.4 fl High 35.1-43.9 [facility] Hematocrit Auto (Bld) [Volum e fraction]Ordered By: Celia Toribio on 09-01-2024 Hematocrit (Bld) [Volume fraction] 43.2 % 40-54 [facility] Hemoglobin measurementOrdere d By: Celia Toribio on 09-01-2024 Hemoglobin (Bld) [Mass/Vol] 14.1 g/dL 13.0-16.5 [facility] Immature granulocytes/100 WB C Auto (Bld)Ordered By: Celia Toribio on 09-01-2024 Immature granulocytes/100 WBC (Bld) 0.600 % 0.0-0.9 [facility] Comment on above: IG% - Immature Granu locytes (promyelocytes, myelocytes and metamyelocytes) > 1% indicates that a LEFT SHIFT is Present. Lymphocytes Auto (Unsp spec) [#/Vol]Ordered By: Celia Toribio on 09-01-2024 Lymphocytes (Bld) [#/Vol] 1.45 10*3/uL 0.83-4.51 [facility] Lymphocytes/100 WBC Auto (Un sp spec)Ordered By: Celia Toribio on 09-01-2024 Lymphocytes/100 WBC (Bld) 20.9 % 19-41 [facility] MCV (mean corpuscular volume ) determinationOrdered By: Celia Toribio on 09-01-2024 MCV (RBC) [Entitic vol] 96.2 fL High 80-94 [facility] Mean corpuscular hemoglobin (MCH) determinationOrdered By: Celia Toribio on 09-01-2024 MCH (RBC) [Entitic mass] 31.4 pg 27.0-32.0 [facility] Mean corpuscular hemoglobin concentration (MCHC) determinationOrdered By: Celia Toribio on 09-01-2024 MCHC (RBC) [Mass/Vol] 32.6 g/dL 32-36 [facility] Mean platelet volume determi nationOrdered By: Celia Toribio on 09-01-2024 Platelet mean volume (Bld) [Entitic vol] 9.5 fL 6.2-12.0 [facility] Monocyte percentageOrdered B y: Celia Toribio on 09-01-2024 Monocytes/100 WBC (Bld) 6.2 % 0-10 [facility] Neutrophil percentageOrdered By: Celia Toribio on 09-01-2024 Neutrophils/100 WBC (Bld) 70.9 % High 47-70 [facility] Nucleated red blood cell per centageOrdered By: Celia Toribio on 09-01-2024 Nucleated RBC/100 WBC (Bld) [Ratio] 0 % 0-5 [facility] Platelet countOrdered By: Yariel Toribio on 09-01-2024 Platelets (Bld) [#/Vol] 367 10*3/uL 150-450 [facility] RBC Auto (Bld) [#/Vol]Ordere d By: Celia Toribio on 09-01-2024 RBC (Bld) [#/Vol] 4.49 10*6/uL Low 4.6-6.2 [facility] White blood cell (WBC) count Ordered By: Celia Toribio on 09-01-2024 WBC (Bld) [#/Vol] 6.9 10*3/uL 4.4-11.0 [facility] Basic Metabolic Profile (BMP )on 08-31-2024 BUN/CRE 25.7 RATIO High 10-20 [facility] Comment on above: Performed By: #### L 500.2500, L100.0100 ####[facility] [address] [place], [address] Calcium [Mass/Vol] 10.0 mg/dL Normal 7.6-11.0 [facility] Comment on above: Performed By: #### L 500.2500, L100.0100 ####[facility] [address] [place], [address] Chloride [Moles/Vol] 102 mmol/L Normal 98-108 [facility] Comment on above: Performed By: #### L 500.2500, L100.0100 ####[facility] [address] [place], [address] CO2 [Moles/Vol] 21.5 mmol/L Normal 21.0-32.0 [facility] Comment on above: Performed By: #### L 500.2500, L100.0100 ####[facility] [address] [place], [address] Creatinine [Mass/Vol] 1.16 mg/dL Normal 0.70-1.20 [facility] Comment on above: Performed By: #### L 500.2500, L100.0100 ####[facility] [address] [place], [address] ECRCL 52.61 ml/min Normal 50-250 [facility] Comment on above: Performed By: #### L 500.2500, L100.0100 ####[facility] [address] [place], [address] GAP 15 Normal 5-15 [facility] Comment on above: Performed By: #### L 500.2500, L100.0100 ####[facility] [address] [place], [address] GFR/1.73 sq M.predicted among non-blacks MDRD (S/P/Bld) [Vol rate/Area] 66 mL/min/{1.73_m2} Normal >60 [facility] Comment on above: Result Comment: mL/m in/1.73m2 CKD-EPI Creatinine Equation (2020) Performed By: #### L 500.2500, L100.0100 ####[facility] [address] [place], [address] Glucose [Mass/Vol] 93 mg/dL Normal 70-99 [facility] Comment on above: Performed By: #### L 500.2500, L100.0100 ####[facility] [address] [place], [address] Potassium [Moles/Vol] 3.8 mmol/L Normal 3.3-5.1 [facility] Comment on above: Performed By: #### L 500.2500, L100.0100 ####[facility] [address] [place], [address] Sodium [Moles/Vol] 138 mmol/L Normal 133-145 [facility] Comment on above: Performed By: #### L 500.2500, L100.0100 ####[facility] [address] [place], [address] Urea nitrogen [Mass/Vol] 30 mg/dL High 4-19 [facility] Comment on above: Performed By: #### L 500.2500, L100.0100 ####[facility] [address] [place], [address] CBC W/Diff, Automatedon 03-1 Absolute Neut Normal 2.0-7.7 [facility] Comment on above: Result Comment: Canc elled via OM: MD Ordered Performed By: #### L 500.2500, L100.0100 ####[facility] [address] [place], [address] HCT Normal 40-54 [facility] Comment on above: Result Comment: Canc elled via OM: MD Ordered Performed By: #### L 500.2500, L100.0100 ####[facility] [address] [place], [address] HGB Normal 13.0-16.5 [facility] Comment on above: Result Comment: Canc elled via OM: MD Ordered Performed By: #### L 500.2500, L100.0100 ####[facility] [address] [place], [address] MCH Normal 27.0-32.0 [facility] Comment on above: Result Comment: Canc elled via OM: MD Ordered Performed By: #### L 500.2500, L100.0100 ####[facility] [address] [place], [address] MCHC Normal 32-36 [facility] Comment on above: Result Comment: Canc elled via OM: MD Ordered Performed By: #### L 500.2500, L100.0100 ####[facility] [address] [place], [address] MCV Normal 80-94 [facility] Comment on above: Result Comment: Canc elled via OM: MD Ordered Performed By: #### L 500.2500, L100.0100 ####[facility] [address] [place], [address] NEUT% Normal 47-70 [facility] Comment on above: Result Comment: Canc elled via OM: MD Ordered Performed By: #### L 500.2500, L100.0100 ####[facility] [address] [place], [address] PLT Normal 150-450 [facility] Comment on above: Result Comment: Canc elled via OM: MD Ordered Performed By: #### L 500.2500, L100.0100 ####[facility] [address] [place], [address] RBC Normal 4.6-6.2 [facility] Comment on above: Result Comment: Canc elled via OM: MD Ordered Performed By: #### L 500.2500, L100.0100 ####[facility] [address] [place], [address] RDW CV Normal 11.6-14.6 [facility] Comment on above: Result Comment: Canc elled via OM: MD Ordered Performed By: #### L 500.2500, L100.0100 ####[facility] [address] [place], [address] RDW SD Normal 35.1-43.9 [facility] Comment on above: Result Comment: Canc elled via OM: MD Ordered Performed By: #### L 500.2500, L100.0100 ####[facility] [address] [place], [address] WBC Normal 4.4-11.0 [facility] Comment on above: Result Comment: Canc elled via OM: MD Ordered Performed By: #### L 500.2500, L100.0100 ####[facility] [address] [place], [address] Basic Metabolic Profile (BMP )on 08-30-2024 BUN/CRE 21.4 RATIO High 10-20 [facility] Comment on above: Performed By: #### L 500.2500, L100.0100 ####[facility] [address] [place], [address] Calcium [Mass/Vol] 10.1 mg/dL Normal 7.6-11.0 [facility] Comment on above: Performed By: #### L 500.2500, L100.0100 ####[facility] [address] [place], [address] Chloride [Moles/Vol] 102 mmol/L Normal 98-108 [facility] Comment on above: Performed By: #### L 500.2500, L100.0100 ####[facility] [address] [place], [address] CO2 [Moles/Vol] 22.7 mmol/L Normal 21.0-32.0 [facility] Comment on above: Performed By: #### L 500.2500, L100.0100 ####[facility] [address] [place], [address] Creatinine [Mass/Vol] 1.21 mg/dL High 0.70-1.20 [facility] Comment on above: Performed By: #### L 500.2500, L100.0100 ####[facility] [address] [place], [address] ECRCL 51.03 ml/min Normal 50-250 [facility] Comment on above: Performed By: #### L 500.2500, L100.0100 ####[facility] [address] [place], [address] GAP 13 Normal 5-15 [facility] Comment on above: Performed By: #### L 500.2500, L100.0100 ####[facility] [address] [place], [address] GFR/1.73 sq M.predicted among non-blacks MDRD (S/P/Bld) [Vol rate/Area] 62 mL/min/{1.73_m2} Normal >60 [facility] Comment on above: Result Comment: mL/m in/1.73m2 CKD-EPI Creatinine Equation (2020) Performed By: #### L 500.2500, L100.0100 ####[facility] [address] [place], [address] Glucose [Mass/Vol] 94 mg/dL Normal 70-99 [facility] Comment on above: Performed By: #### L 500.2500, L100.0100 ####[facility] [address] [place], [address] Potassium [Moles/Vol] 4.2 mmol/L Normal 3.3-5.1 [facility] Comment on above: Performed By: #### L 500.2500, L100.0100 ####[facility] [address] [place], [address] Sodium [Moles/Vol] 138 mmol/L Normal 133-145 [facility] Comment on above: Performed By: #### L 500.2500, L100.0100 ####[facility] [address] [place], [address] Urea nitrogen [Mass/Vol] 26 mg/dL High 4-19 [facility] Comment on above: Performed By: #### L 500.2500, L100.0100 ####[facility] [address] [place], [address] CBC W/Diff, Automatedon 08-17 Absolute Lymph 1.00 X10 3/uL Normal 0.83-4.51 [facility] Comment on above: Performed By: #### L 500.2500, L100.0100 ####[facility] [address] [place], [address] Absolute Neut 3.7 X10 3/uL Normal 2.0-7.7 [facility] Comment on above: Performed By: #### L 500.2500, L100.0100 ####[place] [facility] [address] [place], [address] Basophils/100 WBC (Bld) 1.6 % High 0-1 [facility] Comment on above: Performed By: #### L 500.2500, L100.0100 ####[facility] [address] [place], [address] Eosinophils/100 WBC (Bld) 7.8 % High 0-5 [facility] Comment on above: Performed By: #### L 500.2500, L100.0100 ####[facility] [address] [place], [address] Erythrocyte distribution width (RBC) [Ratio] 13.3 % Normal 11.6-14.6 [facility] Comment on above: Performed By: #### L 500.2500, L100.0100 ####[facility] [address] [place], [address] Hematocrit (Bld) [Volume fraction] 41.8 % Normal 40-54 [facility] Comment on above: Performed By: #### L 500.2500, L100.0100 ####[facility] [address] [place], [address] Hemoglobin (Bld) [Mass/Vol] 13.8 g/dL Normal 13.0-16.5 [facility] Comment on above: Performed By: #### L 500.2500, L100.0100 ####[facility] [address] [place], [address] IG% 0.400 Normal 0.0-0.9 [facility] Comment on above: Result Comment: IG% - Immature Granulocytes (promyelocytes, myelocytes andmetamyelocytes) > 1% indicates that a LEFT SHIFT is Present. Performed By: #### L 500.2500, L100.0100 ####[facility] [address] [place], [address] Lymphocytes/100 WBC (Bld) 17.8 % Low 19-41 [facility] Comment on above: Performed By: #### L 500.2500, L100.0100 ####[facility] [address] [place], [address] MCH (RBC) [Entitic mass] 31.9 pg Normal 27.0-32.0 [facility] Comment on above: Performed By: #### L 500.2500, L100.0100 ####[facility] [address] [place], [address] MCHC (RBC) [Mass/Vol] 33.0 g/dL Normal 32-36 [facility] Comment on above: Performed By: #### L 500.2500, L100.0100 ####[facility] [address] [place], [address] MCV (RBC) [Entitic vol] 96.5 fL High 80-94 [facility] Comment on above: Performed By: #### L 500.2500, L100.0100 ####[facility] [address] [place], [address] Monocytes/100 WBC (Bld) 7.6 % Normal 0-10 [facility] Comment on above: Performed By: #### L 500.2500, L100.0100 ####[facility] [address] [place], [address] Neutrophils/100 WBC (Bld) 64.8 % Normal 47-70 [facility] Comment on above: Performed By: #### L 500.2500, L100.0100 ####[facility] [address] [place], [address] Nucleated RBC (Bld) [#/Vol] 0 10*3/uL Normal 0-5 [facility] Comment on above: Performed By: #### L 500.2500, L100.0100 ####[facility] [address] [place], [address] Platelet mean volume (Bld) [Entitic vol] 9.7 fL Normal 6.2-12.0 [facility] Comment on above: Performed By: #### L 500.2500, L100.0100 ####[facility] [address] [place], [address] Platelets (Bld) [#/Vol] 309 10*3/uL Normal 150-450 [facility] Comment on above: Performed By: #### L 500.2500, L100.0100 ####[facility] [address] [place], [address] RBC (Bld) [#/Vol] 4.33 10*6/uL Low 4.6-6.2 [facility] Comment on above: Performed By: #### L 500.2500, L100.0100 ####[facility] [address] [place], [address] RDW SD 47.7 fl High 35.1-43.9 [facility] Comment on above: Performed By: #### L 500.2500, L100.0100 ####[facility] [address] [place], [address] WBC (Bld) [#/Vol] 5.6 10*3/uL Normal 4.4-11.0 [facility] Comment on above: Performed By: #### L 500.2500, L100.0100 ####[facility] [address] [place], [address] Consultation - Infectious Dx on 08-30-2024 Consultation - Infectious Dx Normal [facility] Basic Metabolic Profile (BMP )on 08-29-2024 BUN/CRE 24.6 RATIO High 10-20 [facility] Comment on above: Performed By: #### L 100.0100, L500.2500 ####[facility] [address] [place], [address] Calcium [Mass/Vol] 10.0 mg/dL Normal 7.6-11.0 [facility] Comment on above: Performed By: #### L 100.0100, L500.2500 ####[facility] [address] [place], [address] Chloride [Moles/Vol] 104 mmol/L Normal 98-108 [facility] Comment on above: Performed By: #### L 100.0100, L500.2500 ####[facility] [address] [place], [address] CO2 [Moles/Vol] 22.8 mmol/L Normal 21.0-32.0 [facility] Comment on above: Performed By: #### L 100.0100, L500.2500 ####[facility] [address] [place], [address] Creatinine [Mass/Vol] 1.21 mg/dL High 0.70-1.20 [facility] Comment on above: Performed By: #### L 100.0100, L500.2500 ####[facility] [address] [place], [address] ECRCL 51.03 ml/min Normal 50-250 [facility] Comment on above: Performed By: #### L 100.0100, L500.2500 ####[facility] [address] [place], [address] GAP 14 Normal 5-15 [facility] Comment on above: Performed By: #### L 100.0100, L500.2500 ####[facility] [address] [place], [address] GFR/1.73 sq M.predicted among non-blacks MDRD (S/P/Bld) [Vol rate/Area] 62 mL/min/{1.73_m2} Normal >60 [facility] Comment on above: Result Comment: mL/m in/1.73m2 CKD-EPI Creatinine Equation (2020) Performed By: #### L 100.0100, L500.2500 ####[facility] [address] [place], [address] Glucose [Mass/Vol] 91 mg/dL Normal 70-99 [facility] Comment on above: Performed By: #### L 100.0100, L500.2500 ####[facility] [address] [place], [address] Potassium [Moles/Vol] 4.1 mmol/L Normal 3.3-5.1 [facility] Comment on above: Performed By: #### L 100.0100, L500.2500 ####[facility] [address] [place], [address] Sodium [Moles/Vol] 141 mmol/L Normal 133-145 [facility] Comment on above: Performed By: #### L 100.0100, L500.2500 ####[facility] [address] [place], [address] Urea nitrogen [Mass/Vol] 30 mg/dL High 4-19 [facility] Comment on above: Performed By: #### L 100.0100, L500.2500 ####[facility] [address] [place], [address] CBC W/Diff, Automatedon 08-17 Absolute Lymph 1.17 X10 3/uL Normal 0.83-4.51 [facility] Comment on above: Performed By: #### L 100.0100, L500.2500 ####[facility] [address] [place], [address] Absolute Neut 3.1 X10 3/uL Normal 2.0-7.7 [facility] Comment on above: Performed By: #### L 100.0100, L500.2500 ####[facility] [address] [place], [address] Basophils/100 WBC (Bld) 1.3 % High 0-1 [facility] Comment on above: Performed By: #### L 100.0100, L500.2500 ####[facility] [address] [place], [address] Eosinophils/100 WBC (Bld) 8.2 % High 0-5 [facility] Comment on above: Performed By: #### L 100.0100, L500.2500 ####[facility] [address] [place], [address] Erythrocyte distribution width (RBC) [Ratio] 13.5 % Normal 11.6-14.6 [facility] Comment on above: Performed By: #### L 100.0100, L500.2500 ####[facility] [address] [place], [address] Hematocrit (Bld) [Volume fraction] 39.2 % Low 40-54 [facility] Comment on above: Performed By: #### L 100.0100, L500.2500 ####[facility] [address] [place], [address] Hemoglobin (Bld) [Mass/Vol] 12.8 g/dL Low 13.0-16.5 [facility] Comment on above: Performed By: #### L 100.0100, L500.2500 ####[facility] [address] [place], [address] IG% 0.400 Normal 0.0-0.9 [facility] Comment on above: Result Comment: IG% - Immature Granulocytes (promyelocytes, myelocytes andmetamyelocytes) > 1% indicates that a LEFT SHIFT is Present. Performed By: #### L 100.0100, L500.2500 ####[facility] [address] [place], [address] Lymphocytes/100 WBC (Bld) 22.3 % Normal 19-41 [facility] Comment on above: Performed By: #### L 100.0100, L500.2500 ####[facility] [address] [place], [address] MCH (RBC) [Entitic mass] 31.4 pg Normal 27.0-32.0 [facility] Comment on above: Performed By: #### L 100.0100, L500.2500 ####[facility] [address] [place], [address] MCHC (RBC) [Mass/Vol] 32.7 g/dL Normal 32-36 [facility] Comment on above: Performed By: #### L 100.0100, L500.2500 ####[facility] [address] [place], [address] MCV (RBC) [Entitic vol] 96.1 fL High 80-94 [facility] Comment on above: Performed By: #### L 100.0100, L500.2500 ####[facility] [address] [place], [address] Monocytes/100 WBC (Bld) 8.0 % Normal 0-10 [facility] Comment on above: Performed By: #### L 100.0100, L500.2500 ####[facility] [address] [place], [address] Neutrophils/100 WBC (Bld) 59.8 % Normal 47-70 [facility] Comment on above: Performed By: #### L 100.0100, L500.2500 ####[facility] [address] [place], [address] Nucleated RBC (Bld) [#/Vol] 0 10*3/uL Normal 0-5 [facility] Comment on above: Performed By: #### L 100.0100, L500.2500 ####[facility] [address] [place], [address] Platelet mean volume (Bld) [Entitic vol] 9.8 fL Normal 6.2-12.0 [facility] Comment on above: Performed By: #### L 100.0100, L500.2500 ####[facility] [address] [place], [address] Platelets (Bld) [#/Vol] 277 10*3/uL Normal 150-450 [facility] Comment on above: Performed By: #### L 100.0100, L500.2500 ####[facility] [address] [place], [address] RBC (Bld) [#/Vol] 4.08 10*6/uL Low 4.6-6.2 [facility] Comment on above: Performed By: #### L 100.0100, L500.2500 ####[facility] [address] [place], [address] RDW SD 47.8 fl High 35.1-43.9 [facility] Comment on above: Performed By: #### L 100.0100, L500.2500 ####[facility] [address] [place], [address] WBC (Bld) [#/Vol] 5.3 10*3/uL Normal 4.4-11.0 [facility] Comment on above: Performed By: #### L 100.0100, L500.2500 ####[facility] [address] [place], [address] Basic Metabolic Profile (BMP )on 08-28-2024 BUN/CRE 21.6 RATIO High 10-20 [facility] Comment on above: Performed By: #### L 500.2500, L100.0100 ####[facility] [address] [place], [address] Calcium [Mass/Vol] 9.8 mg/dL Normal 7.6-11.0 [facility] Comment on above: Performed By: #### L 500.2500, L100.0100 ####[facility] [address] [place], [address] Chloride [Moles/Vol] 105 mmol/L Normal 98-108 [facility] Comment on above: Performed By: #### L 500.2500, L100.0100 ####[facility] [address] [place], [address] CO2 [Moles/Vol] 21.9 mmol/L Normal 21.0-32.0 [facility] Comment on above: Performed By: #### L 500.2500, L100.0100 ####[facility] [address] [place], [address] Creatinine [Mass/Vol] 1.14 mg/dL Normal 0.70-1.20 [facility] Comment on above: Performed By: #### L 500.2500, L100.0100 ####[facility] [address] [place], [address] ECRCL 54.17 ml/min Normal 50-250 [facility] Comment on above: Performed By: #### L 500.2500, L100.0100 ####[facility] [address] [place], [address] GAP 13 Normal 5-15 [facility] Comment on above: Performed By: #### L 500.2500, L100.0100 ####[facility] [address] [place], [address] GFR/1.73 sq M.predicted among non-blacks MDRD (S/P/Bld) [Vol rate/Area] 67 mL/min/{1.73_m2} Normal >60 [facility] Comment on above: Result Comment: mL/m in/1.73m2 CKD-EPI Creatinine Equation (2020) Performed By: #### L 500.2500, L100.0100 ####[facility] [address] [place], [address] Glucose [Mass/Vol] 93 mg/dL Normal 70-99 [facility] Comment on above: Performed By: #### L 500.2500, L100.0100 ####[facility] [address] [place], [address] Potassium [Moles/Vol] 3.8 mmol/L Normal 3.3-5.1 [facility] Comment on above: Performed By: #### L 500.2500, L100.0100 ####[facility] [address] [place], [address] Sodium [Moles/Vol] 140 mmol/L Normal 133-145 [facility] Comment on above: Performed By: #### L 500.2500, L100.0100 ####[facility] [address] [place], [address] Urea nitrogen [Mass/Vol] 25 mg/dL High 4-19 [facility] Comment on above: Performed By: #### L 500.2500, L100.0100 ####[facility] [address] [place], [address] CBC W/Diff, Automatedon 08-17 Absolute Lymph 1.06 X10 3/uL Normal 0.83-4.51 [facility] Comment on above: Performed By: #### L 500.2500, L100.0100 ####[facility] [address] [place], [address] Absolute Neut 2.5 X10 3/uL Normal 2.0-7.7 [facility] Comment on above: Performed By: #### L 500.2500, L100.0100 ####[facility] [address] [place], [address] Basophils/100 WBC (Bld) 1.8 % High 0-1 [facility] Comment on above: Performed By: #### L 500.2500, L100.0100 ####[facility] [address] [place], [address] Eosinophils/100 WBC (Bld) 7.5 % High 0-5 [facility] Comment on above: Performed By: #### L 500.2500, L100.0100 ####[facility] [address] [place], [address] Erythrocyte distribution width (RBC) [Ratio] 13.3 % Normal 11.6-14.6 [facility] Comment on above: Performed By: #### L 500.2500, L100.0100 ####[facility] [address] [place], [address] Hematocrit (Bld) [Volume fraction] 39.0 % Low 40-54 [facility] Comment on above: Performed By: #### L 500.2500, L100.0100 ####[facility] [address] [place], [address] Hemoglobin (Bld) [Mass/Vol] 12.8 g/dL Low 13.0-16.5 [facility] Comment on above: Performed By: #### L 500.2500, L100.0100 ####[facility] [address] [place], [address] IG% 0.400 Normal 0.0-0.9 [facility] Comment on above: Result Comment: IG% - Immature Granulocytes (promyelocytes, myelocytes andmetamyelocytes) > 1% indicates that a LEFT SHIFT is Present. Performed By: #### L 500.2500, L100.0100 ####[facility] [address] [place], [address] Lymphocytes/100 WBC (Bld) 23.4 % Normal 19-41 [facility] Comment on above: Performed By: #### L 500.2500, L100.0100 ####[facility] [address] [place], [address] MCH (RBC) [Entitic mass] 31.1 pg Normal 27.0-32.0 [facility] Comment on above: Performed By: #### L 500.2500, L100.0100 ####[facility] [address] [place], [address] MCHC (RBC) [Mass/Vol] 32.8 g/dL Normal 32-36 [facility] Comment on above: Performed By: #### L 500.2500, L100.0100 ####[facility] [address] [place], [address] MCV (RBC) [Entitic vol] 94.7 fL High 80-94 [facility] Comment on above: Performed By: #### L 500.2500, L100.0100 ####[facility] [address] [place], [address] Monocytes/100 WBC (Bld) 11.3 % High 0-10 [facility] Comment on above: Performed By: #### L 500.2500, L100.0100 ####[facility] [address] [place], [address] Neutrophils/100 WBC (Bld) 55.6 % Normal 47-70 [facility] Comment on above: Performed By: #### L 500.2500, L100.0100 ####[facility] [address] [place], [address] Nucleated RBC (Bld) [#/Vol] 0 10*3/uL Normal 0-5 [facility] [facility] Comment on above: Performed By: #### L 500.2500, L100.0100 ####[facility] [address] [place], [address] Platelet mean volume (Bld) [Entitic vol] 9.8 fL Normal 6.2-12.0 [facility] Comment on above: Performed By: #### L 500.2500, L100.0100 ####[facility] [address] [place], [address] Platelets (Bld) [#/Vol] 279 10*3/uL Normal 150-450 [facility] Comment on above: Performed By: #### L 500.2500, L100.0100 ####[facility] [address] [place], [address] RBC (Bld) [#/Vol] 4.12 10*6/uL Low 4.6-6.2 [facility] Comment on above: Performed By: #### L 500.2500, L100.0100 ####[facility] [address] [place], [address] RDW SD 46.1 fl High 35.1-43.9 [facility] Comment on above: Performed By: #### L 500.2500, L100.0100 ####[facility] [address] [place], [address] WBC (Bld) [#/Vol] 4.5 10*3/uL Normal 4.4-11.0 [facility] Comment on above: Performed By: #### L 500.2500, L100.0100 ####[facility] [address] [place], [address] Basic Metabolic Profile (BMP )on 08-27-2024 BUN/CRE 17.2 RATIO Normal 10-20 [facility] Comment on above: Performed By: #### L 500.2500, L100.0100 ####[facility] [address] [place], [address] Calcium [Mass/Vol] 9.5 mg/dL Normal 7.6-11.0 [facility] Comment on above: Performed By: #### L 500.2500, L100.0100 ####[facility] [address] [place], [address] Chloride [Moles/Vol] 104 mmol/L Normal 98-108 [facility] Comment on above: Performed By: #### L 500.2500, L100.0100 ####[facility] [address] [place], [address] CO2 [Moles/Vol] 19.9 mmol/L Low 21.0-32.0 [facility] Comment on above: Performed By: #### L 500.2500, L100.0100 ####[facility] [address] [place], [address] Creatinine [Mass/Vol] 1.18 mg/dL Normal 0.70-1.20 [facility] Comment on above: Performed By: #### L 500.2500, L100.0100 ####[facility] [address] [place], [address] ECRCL 52.25 ml/min Normal 50-250 [facility] Comment on above: Performed By: #### L 500.2500, L100.0100 ####[facility] [address] [place], [address] GAP 14 Normal 5-15 [facility] Comment on above: Performed By: #### L 500.2500, L100.0100 ####[facility] [address] [place], [address] GFR/1.73 sq M.predicted among non-blacks MDRD (S/P/Bld) [Vol rate/Area] 64 mL/min/{1.73_m2} Normal >60 [facility] Comment on above: Result Comment: mL/m in/1.73m2 CKD-EPI Creatinine Equation (2020) Performed By: #### L 500.2500, L100.0100 ####[facility] [address] [place], [address] Glucose [Mass/Vol] 97 mg/dL Normal 70-99 [facility] Comment on above: Performed By: #### L 500.2500, L100.0100 ####[facility] [address] [place], [address] Potassium [Moles/Vol] 3.4 mmol/L Normal 3.3-5.1 [facility] Comment on above: Performed By: #### L 500.2500, L100.0100 ####[facility] [address] [place], [address] Sodium [Moles/Vol] 139 mmol/L Normal 133-145 [facility] Comment on above: Performed By: #### L 500.2500, L100.0100 ####[facility] [address] [place], [address] Urea nitrogen [Mass/Vol] 20 mg/dL High 4-19 [facility] Comment on above: Performed By: #### L 500.2500, L100.0100 ####[facility] [address] [place], [address] Bilirubin Test strip Ql (U)O rdered By: Celia Toribio on 08-27-2024 Bilirubin Ql (U) Negative Negative [facility] CBC W/Diff, Automatedon 08-17 Absolute Lymph 0.95 X10 3/uL Normal 0.83-4.51 [facility] Comment on above: Performed By: #### L 500.2500, L100.0100 ####[facility] [address] [place], [address] Absolute Neut 2.3 X10 3/uL Normal 2.0-7.7 [facility] Comment on above: Performed By: #### L 500.2500, L100.0100 ####[facility] [address] [place], [address] Basophils/100 WBC (Bld) 1.2 % High 0-1 [facility] Comment on above: Performed By: #### L 500.2500, L100.0100 ####[facility] [address] [place], [address] Eosinophils/100 WBC (Bld) 6.3 % High 0-5 [facility] Comment on above: Performed By: #### L 500.2500, L100.0100 ####[facility] [address] [place], [address] Erythrocyte distribution width (RBC) [Ratio] 13.3 % Normal 11.6-14.6 [facility] Comment on above: Performed By: #### L 500.2500, L100.0100 ####[facility] [address] [place], [address] Hematocrit (Bld) [Volume fraction] 38.4 % Low 40-54 [facility] Comment on above: Performed By: #### L 500.2500, L100.0100 ####[facility] [address] [place], [address] Hemoglobin (Bld) [Mass/Vol] 12.8 g/dL Low 13.0-16.5 [facility] Comment on above: Performed By: #### L 500.2500, L100.0100 ####[facility] [address] [place], [address] IG% 0.200 Normal 0.0-0.9 [facility] Comment on above: Result Comment: IG% - Immature Granulocytes (promyelocytes, myelocytes andmetamyelocytes) > 1% indicates that a LEFT SHIFT is Present. Performed By: #### L 500.2500, L100.0100 ####[facility] [address] [place], [address] Lymphocytes/100 WBC (Bld) 23.0 % Normal 19-41 [facility] Comment on above: Performed By: #### L 500.2500, L100.0100 ####[facility] [address] [place], [address] MCH (RBC) [Entitic mass] 31.4 pg Normal 27.0-32.0 [facility] Comment on above: Performed By: #### L 500.2500, L100.0100 ####[facility] [address] [place], [address] MCHC (RBC) [Mass/Vol] 33.3 g/dL Normal 32-36 [facility] Comment on above: Performed By: #### L 500.2500, L100.0100 ####[facility] [address] [place], [address] MCV (RBC) [Entitic vol] 94.3 fL High 80-94 [facility] Comment on above: Performed By: #### L 500.2500, L100.0100 ####[facility] [address] [place], [address] Monocytes/100 WBC (Bld) 13.1 % High 0-10 [facility] Comment on above: Performed By: #### L 500.2500, L100.0100 ####[facility] [address] [place], [address] Neutrophils/100 WBC (Bld) 56.2 % Normal 47-70 [facility] Comment on above: Performed By: #### L 500.2500, L100.0100 ####[facility] [address] [place], [address] Nucleated RBC (Bld) [#/Vol] 0 10*3/uL Normal 0-5 [facility] Comment on above: Performed By: #### L 500.2500, L100.0100 ####[facility] [address] [place], [address] Platelet mean volume (Bld) [Entitic vol] 10.0 fL Normal 6.2-12.0 [facility] Comment on above: Performed By: #### L 500.2500, L100.0100 ####[facility] [address] [place], [address] Platelets (Bld) [#/Vol] 253 10*3/uL Normal 150-450 [facility] Comment on above: Performed By: #### L 500.2500, L100.0100 ####[facility] [address] [place], [address] RBC (Bld) [#/Vol] 4.07 10*6/uL Low 4.6-6.2 [facility] Comment on above: Performed By: #### L 500.2500, L100.0100 ####[facility] [address] [place], [address] RDW SD 46.1 fl High 35.1-43.9 [facility] Comment on above: Performed By: #### L 500.2500, L100.0100 ####[facility] [address] [place], [address] WBC (Bld) [#/Vol] 4.1 10*3/uL Low 4.4-11.0 [facility] Comment on above: Performed By: #### L 500.2500, L100.0100 ####[facility] [address] [place], [address] CBC-Complete Blood Cnt No Di ffon 08-27-2024 Erythrocyte distribution width (RBC) [Ratio] 13.4 % Normal 11.6-14.6 [facility] Comment on above: Performed By: #### L 100.0500 ####[facility] [address] [place], [address] Hematocrit (Bld) [Volume fraction] 40.6 % Normal 40-54 [facility] Comment on above: Performed By: #### L 100.0500 ####[facility] [address] [place], [address] Hemoglobin (Bld) [Mass/Vol] 13.5 g/dL Normal 13.0-16.5 [facility] Comment on above: Performed By: #### L 100.0500 ####[facility] [address] [place], [address] MCH (RBC) [Entitic mass] 31.5 pg Normal 27.0-32.0 [facility] Comment on above: Performed By: #### L 100.0500 ####[facility] [address] [place], [address] MCHC (RBC) [Mass/Vol] 33.3 g/dL Normal 32-36 [facility] Comment on above: Performed By: #### L 100.0500 ####[facility] [address] [place], [address] MCV (RBC) [Entitic vol] 94.6 fL High 80-94 [facility] Comment on above: Performed By: #### L 100.0500 ####[facility] [address] [place], [address] Platelet mean volume (Bld) [Entitic vol] 9.8 fL Normal 6.2-12.0 [facility] Comment on above: Performed By: #### L 100.0500 ####[facility] [address] [place], [address] Platelets (Bld) [#/Vol] 283 10*3/uL Normal 150-450 [facility] Comment on above: Performed By: #### L 100.0500 ####[facility] [address] [place], [address] RBC (Bld) [#/Vol] 4.29 10*6/uL Low 4.6-6.2 [facility] Comment on above: Performed By: #### L 100.0500 ####[facility] [address] [place], [address] RDW SD 46.0 fl High 35.1-43.9 [facility] Comment on above: Performed By: #### L 100.0500 ####[facility] [address] [place], [address] WBC (Bld) [#/Vol] 4.9 10*3/uL Normal 4.4-11.0 [facility] Comment on above: Performed By: #### L 100.0500 ####[facility] [address] [place], [address] Epithelial cells.squamous LM Ql (Urine sed)Ordered By: Celia Toribio on 08-27-2024 Epithelial cells.squamous LM.HPF (Urine sed) [#/Area] 0 /[HPF] 0-5 [facility] Glucose Ql (U)Ordered By: Yariel Toribio on 08-27-2024 Urine Glucose (UA) Normal mg/dl Normal [facility] Ketones Test strip Ql (U)Ord ered By: Celia Toribio on 08-27-2024 Ketones Ql (U) Negative Negative [facility] Microscopic analysis of urin e for red blood cells (RBC)Ordered By: Celia Toribio on 08-27-2024 Microscopic analysis of urine for red blood cells (RBC) 0 SEEN /hpf 0-5 [facility] Urine RBC 0 SEEN /hpf 0-5 [facility] Mucus LM Ql (Urine sed)Order ed By: Celia Toribio on 08-27-2024 Mucus Ql (Urine sed) 0 SEEN /hpf [facility] Nitrite Test strip Ql (U)Ord ered By: Celia Toribio on 08-27-2024 Nitrite Ql (U) Positive High Negative [facility] Protein Test strip Ql (U)Ord ered By: Celia Toribio on 08-27-2024 Protein Ql (U) 30 mg/dl High Negative [facility] Squamous epithelial cells de tection in urine sediment by light microscopyOrdered By: Celia Toribio on 08-27-2024 Epithelial cells.squamous LM Ql (Urine sed) 0-5 SEEN /hpf 0-5 [facility] Urinalysis, Completeon 08-27 BACTERIA 4+ /hpf Normal None Seen [facility] Comment on above: Order Comment: CLEAN CATCH Performed By: #### M 100.2200, L400.0001 ####[facility] [address] [place], [address] EPI,SQUAMOUS 0-5 SEEN Normal 0-5 [facility] Comment on above: Order Comment: CLEAN CATCH Performed By: #### M 100.2200, L400.0001 ####[facility] [address] [place], [address] RBC 0 SEEN Normal 0-5 [facility] Comment on above: Order Comment: CLEAN CATCH Performed By: #### M 100.2200, L400.0001 ####[facility] [address] [place], [address] WBC 25-50 SEEN Normal 0-5 [facility] Comment on above: Order Comment: CLEAN CATCH Performed By: #### M 100.2200, L400.0001 ####[facility] [address] [place], [address] Mucus Ql (Urine sed) 0 SEEN Normal [facility] Comment on above: Order Comment: CLEAN CATCH Performed By: #### M 100.2200, L400.0001 ####[facility] [address] [place], [address] Urine blood detectionOrdered By: Celia Toribio on 08-27-2024 Urine Occult Blood Negative Negative [facility] Urine clarityOrdered By: Allyson Toribio on 08-27-2024 Clarity (U) Clear Clear [facility] Urine color determinationOrd ered By: Celia Toribio on 08-27-2024 Color (U) Yellow Yellow [facility] Urine cultureOrdered By: Allyson Toribio on 08-27-2024 Bacteria identified Cx Nom (U) ESBL Escherichia coli Abnormal [facility] Urine glucose detectionOrder ed By: Celia Toribio on 08-27-2024 Glucose Ql (U) Normal mg/dl Normal [facility] Urine leukocyte esterase det ection by dipstickOrdered By: Celia Toribio on 08-27-2024 Leukocyte esterase Test strip Ql (U) 500 /ul High Negative [facility] Urine pHOrdered By: Celia rapp on 08-27-2024 pH (U) 6.0 [pH] 5.0 - 8.0 [facility] Urine sediment bacteria coun t by microscopy (number/high power field)Ordered By: Celia Toribio on 08-27-2024 Bacteria LM.HPF (Urine sed) [#/Area] 4 /[HPF] None Seen [facility] Urine specific gravity measu rementOrdered By: Celia Toribio on 08-27-2024 Specific gravity (U) [Rel density] 1.015 1.002-1.030 [facility] Urine urobilinogen measureme ntOrdered By: Celia Toribio on 08-27-2024 Urobilinogen Ql (U) Normal mg/dl Normal [facility] Urobilinogen Ql (U)Ordered B y: Celia Toribio on 08-27-2024 Urine Urobilinogen Normal mg/dl Normal [facility] White blood cell countOrdere d By: Celia Toribio on 08-27-2024 Urine WBC 25-50 SEEN /hpf 0-5 [facility] White blood cell count 25-50 SEEN /hpf 0-5 [facility] Bilirubin, totalOrdered By: Lisha Talamantes on 08-26-2024 Bilirubin [Mass/Vol] 0.25 mg/dL 0.00-1.30 [facility] CBC W/Diff, Automatedon 08-17 Absolute Lymph 0.94 X10 3/uL Normal 0.83-4.51 [facility] Comment on above: Performed By: #### L 500.4050, L501.5200, L100.0100, L501.2300 ####[facility] [address] [place], [address] Absolute Neut 2.9 X10 3/uL Normal 2.0-7.7 [facility] Comment on above: Performed By: #### L 500.4050, L501.5200, L100.0100, L501.2300 ####[facility] [address] [place], [address] Basophils/100 WBC (Bld) 1.1 % High 0-1 [facility] Comment on above: Performed By: #### L 500.4050, L501.5200, L100.0100, L501.2300 ####[facility] [address] [place], [address] Eosinophils/100 WBC (Bld) 3.4 % Normal 0-5 [facility] Comment on above: Performed By: #### L 500.4050, L501.5200, L100.0100, L501.2300 ####[facility] [address] [place], [address] Erythrocyte distribution width (RBC) [Ratio] 13.3 % Normal 11.6-14.6 [facility] Comment on above: Performed By: #### L 500.4050, L501.5200, L100.0100, L501.2300 ####[facility] [address] [place], [address] Hematocrit (Bld) [Volume fraction] 40.6 % Normal 40-54 [facility] Comment on above: Performed By: #### L 500.4050, L501.5200, L100.0100, L501.2300 ####[facility] [address] [place], [address] Hemoglobin (Bld) [Mass/Vol] 13.3 g/dL Normal 13.0-16.5 [facility] Comment on above: Performed By: #### L 500.4050, L501.5200, L100.0100, L501.2300 ####[facility] [address] [place], [address] IG% 0.200 Normal 0.0-0.9 [facility] Comment on above: Result Comment: IG% - Immature Granulocytes (promyelocytes, myelocytes andmetamyelocytes) > 1% indicates that a LEFT SHIFT is Present. Performed By: #### L 500.4050, L501.5200, L100.0100, L501.2300 ####[facility] [address] [place], [address] Lymphocytes/100 WBC (Bld) 19.8 % Normal 19-41 [facility] Comment on above: Performed By: #### L 500.4050, L501.5200, L100.0100, L501.2300 ####[facility] [address] [place], [address] MCH (RBC) [Entitic mass] 31.2 pg Normal 27.0-32.0 [facility] Comment on above: Performed By: #### L 500.4050, L501.5200, L100.0100, L501.2300 ####[facility] [address] [place], [address] MCHC (RBC) [Mass/Vol] 32.8 g/dL Normal 32-36 [facility] Comment on above: Performed By: #### L 500.4050, L501.5200, L100.0100, L501.2300 ####[facility] [address] [place], [address] MCV (RBC) [Entitic vol] 95.3 fL High 80-94 [facility] Comment on above: Performed By: #### L 500.4050, L501.5200, L100.0100, L501.2300 ####[facility] [address] [place], [address] Monocytes/100 WBC (Bld) 15.2 % High 0-10 [facility] Comment on above: Performed By: #### L 500.4050, L501.5200, L100.0100, L501.2300 ####[facility] [address] [place], [address] Neutrophils/100 WBC (Bld) 60.3 % Normal 47-70 [facility] Comment on above: Performed By: #### L 500.4050, L501.5200, L100.0100, L501.2300 ####[facility] [address] [place], [address] Nucleated RBC (Bld) [#/Vol] 0 10*3/uL Normal 0-5 [facility] Comment on above: Performed By: #### L 500.4050, L501.5200, L100.0100, L501.2300 ####[facility] [address] [place], [address] Platelet mean volume (Bld) [Entitic vol] 9.9 fL Normal 6.2-12.0 [facility] Comment on above: Performed By: #### L 500.4050, L501.5200, L100.0100, L501.2300 ####[facility] [address] [place], [address] Platelets (Bld) [#/Vol] 242 10*3/uL Normal 150-450 [facility] Comment on above: Performed By: #### L 500.4050, L501.5200, L100.0100, L501.2300 ####[facility] [address] [place], [address] RBC (Bld) [#/Vol] 4.26 10*6/uL Low 4.6-6.2 [facility] Comment on above: Performed By: #### L 500.4050, L501.5200, L100.0100, L501.2300 ####[facility] [address] [place], [address] RDW SD 46.7 fl High 35.1-43.9 [facility] Comment on above: Performed By: #### L 500.4050, L501.5200, L100.0100, L501.2300 ####[facility] [address] [place], [address] WBC (Bld) [#/Vol] 4.7 10*3/uL Normal 4.4-11.0 [facility] Comment on above: Performed By: #### L 500.4050, L501.5200, L100.0100, L501.2300 ####[facility] [address] [place], [address] COVID 19 AG RAPID (ОЛЕГ [place])on 08-26-2024 SARS-CoV-2 (COVID-19) RNA ALEENA+probe Ql (Unsp spec) Normal [facility] Comment on above: Performed By: #### M 100.505 ####[facility] [address] [place], [address] COVID-19 virus antigen assay Ordered By: Celia Toribio on 08-26-2024 SARS-CoV-2 (COVID-19) Ag IA.rapid Ql (Resp) [facility] Comprehensive Metabolic Prof ilon 08-26-2024 Albumin [Mass/Vol] 4.0 g/dL Normal 3.4-4.8 [facility] Comment on above: Performed By: #### L 500.4050, L501.5200, L100.0100, L501.2300 ####[facility] [address] [place], [address] Albumin/Globulin [Mass ratio] 1.4 {ratio} Normal 0.9-2.4 [facility] Comment on above: Performed By: #### L 500.4050, L501.5200, L100.0100, L501.2300 ####[facility] [address] [place], [address] ALK PHOS 67 U/L Normal 40-129 [facility] Comment on above: Performed By: #### L 500.4050, L501.5200, L100.0100, L501.2300 ####[facility] [address] [place], [address] ALT [Catalytic activity/Vol] 28 U/L Normal <=46 [facility] Comment on above: Performed By: #### L 500.4050, L501.5200, L100.0100, L501.2300 ####[facility] [address] [place], [address] AST [Catalytic activity/Vol] 23 U/L Normal <=37 [facility] Comment on above: Performed By: #### L 500.4050, L501.5200, L100.0100, L501.2300 ####[facility] [address] [place], [address] Bilirubin [Mass/Vol] 0.25 mg/dL Normal 0.00-1.30 [facility] Comment on above: Performed By: #### L 500.4050, L501.5200, L100.0100, L501.2300 ####[facility] [address] [place], [address] BUN/CRE 21.8 RATIO High 10-20 [facility] Comment on above: Performed By: #### L 500.4050, L501.5200, L100.0100, L501.2300 ####[facility] [address] [place], [address] Calcium [Mass/Vol] 9.4 mg/dL Normal 7.6-11.0 [facility] Comment on above: Performed By: #### L 500.4050, L501.5200, L100.0100, L501.2300 ####[facility] [address] [place], [address] Chloride [Moles/Vol] 105 mmol/L Normal 98-108 [facility] Comment on above: Performed By: #### L 500.4050, L501.5200, L100.0100, L501.2300 ####[facility] [address] [place], [address] CO2 [Moles/Vol] 17.6 mmol/L Low 21.0-32.0 [facility] Comment on above: Performed By: #### L 500.4050, L501.5200, L100.0100, L501.2300 ####[facility] [id number] [place], [address] Creatinine [Mass/Vol] 1.04 mg/dL Normal 0.70-1.20 [facility] Comment on above: Performed By: #### L 500.4050, L501.5200, L100.0100, L501.2300 ####[facility] [id number] [place], [address] ECRCL 58.77 ml/min Normal 50-250 [facility] Comment on above: Performed By: #### L 500.4050, L501.5200, L100.0100, L501.2300 ####[facility] [id number] [place], [address] GAP 16 High 5-15 [facility] Comment on above: Performed By: #### L 500.4050, L501.5200, L100.0100, L501.2300 ####[facility] [address] [place], [address] GFR/1.73 sq M.predicted among non-blacks MDRD (S/P/Bld) [Vol rate/Area] 75 mL/min/{1.73_m2} Normal >60 [facility] Comment on above: Result Comment: mL/m in/1.73m2 CKD-EPI Creatinine Equation (2020) Performed By: #### L 500.4050, L501.5200, L100.0100, L501.2300 ####[facility] [address] [place], [address] Globulin (S) [Mass/Vol] 2.9 g/dL Normal 2.2-4.2 [facility] Comment on above: Performed By: #### L 500.4050, L501.5200, L100.0100, L501.2300 ####[facility] [address] [place], [address] Glucose [Mass/Vol] 88 mg/dL Normal 70-99 [facility] Comment on above: Performed By: #### L 500.4050, L501.5200, L100.0100, L501.2300 ####[facility] [address] [place], [address] Potassium [Moles/Vol] 3.6 mmol/L Normal 3.3-5.1 [facility] Comment on above: Performed By: #### L 500.4050, L501.5200, L100.0100, L501.2300 ####[facility] [address] [place], [address] Sodium [Moles/Vol] 139 mmol/L Normal 133-145 [facility] Comment on above: Performed By: #### L 500.4050, L501.5200, L100.0100, L501.2300 ####[facility] [address] [place], [address] T PROT 6.9 g/dL Normal 5.9-8.4 [facility] Comment on above: Performed By: #### L 500.4050, L501.5200, L100.0100, L501.2300 ####[facility] [address] [place], [address] Urea nitrogen [Mass/Vol] 23 mg/dL High 4-19 [facility] Comment on above: Performed By: #### L 500.4050, L501.5200, L100.0100, L501.2300 ####[facility] [address] [place], [address] Laboratory - Chemistry and C hemistry - challengeOrdered By: Lisha Talamantes on 08-26-2024 AST [Catalytic activity/Vol] 23 U/L <38 [facility] Lactic Acidon 08-26-2024 Lactate [Moles/Vol] 1.1 mmol/L Normal 0.0-2.0 [facility] Comment on above: Order Comment: Y Performed By: #### L 503.6005 ####[facility] [address] [place], [address] Lactic acid measurementOrder ed By: Celia Toribio on 08-26-2024 Lactate [Moles/Vol] 1.1 mmol/L 0.0-2.0 [facility] Magnesiumon 08-26-2024 Magnesium [Mass/Vol] 1.9 mg/dL Normal 1.5-2.2 [facility] Comment on above: Performed By: #### L 500.4050, L501.5200, L100.0100, L501.2300 ####[facility] [address] [place], [address] Magnesium (Unsp spec) [Mass/ Vol]Ordered By: Lisha Talamantes on 08-26-2024 Magnesium [Mass/Vol] 1.9 mg/dL 1.5-2.2 [facility] Magnesium measurement (mass/ volume)Ordered By: Lisha Talamantes on 08-26-2024 Magnesium (Unsp spec) [Mass/Vol] 1.9 mg/dL 1.5-2.2 [facility] No Panel InformationOrdered By: Lisha Talamantes on 08-26-2024 23 U/L <38 [facility] Phosphoruson 08-26-2024 Phosphate [Mass/Vol] 3.1 mg/dL Normal 2.7-4.5 [facility] Comment on above: Performed By: #### L 500.4050, L501.5200, L100.0100, L501.2300 ####[facility] [address] [place], [place], [address] RESPIRATORY PANEL MOLECULARo n 08-26-2024 RP PANEL Normal [facility] Comment on above: Performed By: #### M 100.638 ####[facility] [address] [place], [place], [address] Respiratory pathogens DNA an d RNA panel ALEENA+probe (Resp)Ordered By: Celia Toribio on 08-26-2024 Respiratory Panel (PCR) [facility] Respiratory pathogens detect ion panel by molecular detection methodOrdered By: Celia Toribio on 08-26-2024 Respiratory pathogens DNA and RNA panel ALEENA+probe (Resp) [facility] SARS-CoV-2 (COVID-19) Ag [place]. rapid Ql (Resp)Ordered By: Celia Toribio on 08-26-2024 SARS-CoV-2 Antigen (Rapid) [facility] Serum globulin measurementOr dered By: Lisha Talamantes on 08-26-2024 Globulin (S) [Mass/Vol] 2.9 g/dL 2.2-4.2 [facility] Serum or plasma alanine saul otransferase (ALT) measurementOrdered By: Lisha Talamantes on 08-26-2024 ALT [Catalytic activity/Vol] 28 U/L <47 [facility] Serum or plasma albumin luis urement (mass/volume)Ordered By: Lisha Talamantes on 08-26-2024 Albumin [Mass/Vol] 4.0 g/dL 3.4-4.8 [facility] Serum or plasma albumin/glob ulin mass ratioOrdered By: Lisha Talamantes on 08-26-2024 Albumin/Globulin [Mass ratio] 1.4 {ratio} 0.9-2.4 [facility] Serum or plasma alkaline kathleen sphatase measurementOrdered By: Lisha Talamantes on 08-26-2024 ALP [Catalytic activity/Vol] 67 U/L 40-129 [facility] Serum phosphorus measurement Ordered By: Lisha Talamantes on 08-26-2024 Phosphorus Level 3.1 mg/dL 2.7-4.5 [facility] Total proteinOrdered By: Ying Talamantes on 08-26-2024 Protein [Mass/Vol] 6.9 g/dL 5.9-8.4 [facility] Absolute neutrophil countOrd ered By: Jaden Jauregui on 08-25-2024 Neutrophils (Bld) [#/Vol] 4.6 10*3/uL 2.0-7.7 [facility] Anion gap in Serum or Plasma Ordered By: Jaden Jauregui on 08-25-2024 Anion gap [Moles/Vol] 13 mmol/L 5-15 [facility] BUN/creatinine ratioOrdered By: Jaden Jauregui on 08-25-2024 Urea nitrogen/Creatinine [Mass ratio] 21.4 mg/mg High 10-20 [facility] Basophil percentageOrdered B y: Jaden Jauregui on 08-25-2024 Basophils/100 WBC (Bld) 0.8 % 0-1 [facility] Bilirubin, totalOrdered By: Jaden Jauregui on 08-25-2024 Bilirubin [Mass/Vol] 0.22 mg/dL 0.00-1.30 [facility] CBC W/Diff, Automatedon Absolute Lymph 0.61 X10 3/uL Low 0.83-4.51 [facility] Comment on above: Performed By: #### L 500.4050, L100.0100 ####[facility] [address] [place], [address] Absolute Neut 4.6 X10 3/uL Normal 2.0-7.7 [facility] Comment on above: Performed By: #### L 500.4050, L100.0100 ####[facility] [address] [place], [address] Basophils/100 WBC (Bld) 0.8 % Normal 0-1 [facility] Comment on above: Performed By: #### L 500.4050, L100.0100 ####[facility] [address] [place], [address] Eosinophils/100 WBC (Bld) 0.3 % Normal 0-5 [facility] Comment on above: Performed By: #### L 500.4050, L100.0100 ####[facility] [address] [place], [address] Erythrocyte distribution width (RBC) [Ratio] 13.2 % Normal 11.6-14.6 [facility] Comment on above: Performed By: #### L 500.4050, L100.0100 ####[facility] [address] [place], [address] Hematocrit (Bld) [Volume fraction] 43.3 % Normal 40-54 [facility] Comment on above: Performed By: #### L 500.4050, L100.0100 ####[facility] [address] [place], [address] Hemoglobin (Bld) [Mass/Vol] 14.2 g/dL Normal 13.0-16.5 [facility] Comment on above: Performed By: #### L 500.4050, L100.0100 ####[facility] [address] [place], [address] IG% 0.300 Normal 0.0-0.9 [facility] Comment on above: Result Comment: IG% - Immature Granulocytes (promyelocytes, myelocytes andmetamyelocytes) > 1% indicates that a LEFT SHIFT is Present. Performed By: #### L 500.4050, L100.0100 ####[facility] [address] [place], [address] Lymphocytes/100 WBC (Bld) 10.3 % Low 19-41 [facility] Comment on above: Performed By: #### L 500.4050, L100.0100 ####[facility] [address] [place], [address] MCH (RBC) [Entitic mass] 31.4 pg Normal 27.0-32.0 [facility] Comment on above: Performed By: #### L 500.4050, L100.0100 ####[facility] [address] [place], [address] MCHC (RBC) [Mass/Vol] 32.8 g/dL Normal 32-36 [facility] Comment on above: Performed By: #### L 500.4050, L100.0100 ####[facility] [address] [place], [address] MCV (RBC) [Entitic vol] 95.8 fL High 80-94 [facility] Comment on above: Performed By: #### L 500.4050, L100.0100 ####[facility] [address] [place], [address] Monocytes/100 WBC (Bld) 9.9 % Normal 0-10 [facility] Comment on above: Performed By: #### L 500.4050, L100.0100 ####[facility] [address] [place], [address] Neutrophils/100 WBC (Bld) 78.4 % High 47-70 [facility] Comment on above: Performed By: #### L 500.4050, L100.0100 ####[facility] [address] [place], [address] Nucleated RBC (Bld) [#/Vol] 0 10*3/uL Normal 0-5 [facility] Comment on above: Performed By: #### L 500.4050, L100.0100 ####[facility] [address] [place], [address] Platelet mean volume (Bld) [Entitic vol] 9.5 fL Normal 6.2-12.0 [facility] Comment on above: Performed By: #### L 500.4050, L100.0100 ####[facility] [address] [place], [address] Platelets (Bld) [#/Vol] 245 10*3/uL Normal 150-450 [facility] Comment on above: Performed By: #### L 500.4050, L100.0100 ####[facility] [address] [place], [address] RBC (Bld) [#/Vol] 4.52 10*6/uL Low 4.6-6.2 [facility] Comment on above: Performed By: #### L 500.4050, L100.0100 ####[facility] [address] [place], [address] RDW SD 46.6 fl High 35.1-43.9 [facility] Comment on above: Performed By: #### L 500.4050, L100.0100 ####[facility] [address] [place], [address] WBC (Bld) [#/Vol] 5.9 10*3/uL Normal 4.4-11.0 [facility] Comment on above: Performed By: #### L 500.4050, L100.0100 ####[facility] [address] [place], [address] Carbon dioxide, total [Moles /volume] in Central venous bloodOrdered By: Jaden Jauregui on 08-25-2024 CO2 [Moles/Vol] 24.5 mmol/L 21.0-32.0 [facility] Chest 1 View (Portable)on Chest 1 View (Portable) Normal [facility] Chloride assayOrdered By: Joseph Jauregui on 08-25-2024 Chloride [Moles/Vol] 102 mmol/L 98-108 [facility] Comprehensive Metabolic Prof ilon 08-25-2024 Albumin [Mass/Vol] 4.5 g/dL Normal 3.4-4.8 [facility] Comment on above: Performed By: #### L 500.4050, L100.0100 ####[facility] [address] [place], [address] Albumin/Globulin [Mass ratio] 1.4 {ratio} Normal 0.9-2.4 [facility] Comment on above: Performed By: #### L 500.4050, L100.0100 ####[facility] [address] [place], [address] ALK PHOS 77 U/L Normal 40-129 [facility] Comment on above: Performed By: #### L 500.4050, L100.0100 ####[facility] [address] [place], [address] ALT [Catalytic activity/Vol] 32 U/L Normal <=46 [facility] Comment on above: Performed By: #### L 500.4050, L100.0100 ####[facility] [address] [place], [address] AST [Catalytic activity/Vol] 26 U/L Normal <=37 [facility] Comment on above: Performed By: #### L 500.4050, L100.0100 ####[facility] [address] [place], [address] Bilirubin [Mass/Vol] 0.22 mg/dL Normal 0.00-1.30 [facility] Comment on above: Performed By: #### L 500.4050, L100.0100 ####[facility] [address] [place], [address] BUN/CRE 21.4 RATIO High 10-20 [facility] Comment on above: Performed By: #### L 500.4050, L100.0100 ####[facility] [address] [place], [address] Calcium [Mass/Vol] 10.0 mg/dL Normal 7.6-11.0 [facility] Comment on above: Performed By: #### L 500.4050, L100.0100 ####[facility] [address] [place], [address] Chloride [Moles/Vol] 102 mmol/L Normal 98-108 [facility] Comment on above: Performed By: #### L 500.4050, L100.0100 ####[facility] [address] [place], [address] CO2 [Moles/Vol] 24.5 mmol/L Normal 21.0-32.0 [facility] Comment on above: Performed By: #### L 500.4050, L100.0100 ####[facility] [address] [place], [address] Creatinine [Mass/Vol] 1.17 mg/dL Normal 0.70-1.20 [facility] Comment on above: Performed By: #### L 500.4050, L100.0100 ####[facility] [address] [place], [address] GAP 13 Normal 5-15 [facility] Comment on above: Performed By: #### L 500.4050, L100.0100 ####[facility] [address] [place], [address] GFR/1.73 sq M.predicted among non-blacks MDRD (S/P/Bld) [Vol rate/Area] 65 mL/min/{1.73_m2} Normal >60 [facility] Comment on above: Result Comment: mL/m in/1.73m2 CKD-EPI Creatinine Equation (2020) Performed By: #### L 500.4050, L100.0100 ####[facility] [address] [place], [address] Globulin (S) [Mass/Vol] 3.2 g/dL Normal 2.2-4.2 [facility] Comment on above: Performed By: #### L 500.4050, L100.0100 ####[facility] [address] [place], [address] Glucose [Mass/Vol] 98 mg/dL Normal 70-99 [facility] Comment on above: Performed By: #### L 500.4050, L100.0100 ####[facility] [address] [place], [address] Potassium [Moles/Vol] 3.8 mmol/L Normal 3.3-5.1 [facility] Comment on above: Performed By: #### L 500.4050, L100.0100 ####[facility] [address] [place], [address] Sodium [Moles/Vol] 139 mmol/L Normal 133-145 [facility] Comment on above: Performed By: #### L 500.4050, L100.0100 ####[facility] [address] [place], [address] T PROT 7.7 g/dL Normal 5.9-8.4 [facility] Comment on above: Performed By: #### L 500.4050, L100.0100 ####[facility] [address] [place], [address] Urea nitrogen [Mass/Vol] 25 mg/dL High 4-19 [facility] Comment on above: Performed By: #### L 500.4050, L100.0100 ####[facility] [address] [place], [address] Emergency Department Summary on 08-25-2024 Emergency Department Summary Normal [facility] Eosinophil percentageOrdered By: Jaden Jauregui on 08-25-2024 Eosinophils/100 WBC (Bld) 0.3 % 0-5 [facility] Erythrocyte distribution wid th ratioOrdered By: Jaden Jauregui on 08-25-2024 Erythrocyte distribution width (RBC) [Ratio] 13.2 % 11.6-14.6 [facility] Erythrocyte distribution wid th standard deviationOrdered By: Jaden Jauregui on 08-25-2024 Erythrocyte distribution width (RBC) [Entitic vol] 46.6 fL High 35.1-43.9 [facility] GFR/1.73 sq M.predicted gisella g non-blacks MDRD (S/P/Bld) [Vol rate/Area]Ordered By: Jaden Jauregui on 08-25-2024 Estimated GFR (MDRD) Non-Af Amer 65 >60 [facility] Comment on above: mL/min/1.73m2 CKD-EP I Creatinine Equation (2020) H AND P Exam - Hospitaliston 08-25-2024 H&P Exam - Hospitalist Normal [facility] Hematocrit Auto (Bld) [Volum e fraction]Ordered By: Jaden Jauregui on 08-25-2024 Hematocrit (Bld) [Volume fraction] 43.3 % 40-54 [facility] Hemoglobin measurementOrdere d By: Jaden Jauregui on 08-25-2024 Hemoglobin (Bld) [Mass/Vol] 14.2 g/dL 13.0-16.5 [facility] Immature granulocytes/100 WB C Auto (Bld)Ordered By: Jaden Jauregui on 08-25-2024 Immature granulocytes/100 WBC (Bld) 0.300 % 0.0-0.9 [facility] Comment on above: IG% - Immature Granu locytes (promyelocytes, myelocytes and metamyelocytes) > 1% indicates that a LEFT SHIFT is Present. Laboratory - Chemistry and C hemistry - challengeOrdered By: Jaden Jauregui on 08-25-2024 AST [Catalytic activity/Vol] 26 U/L <38 [facility] Lymphocytes Auto (Unsp spec) [#/Vol]Ordered By: Jaden Jauregui on 08-25-2024 Lymphocytes (Bld) [#/Vol] 0.61 10*3/uL Low 0.83-4.51 [facility] Lymphocytes/100 WBC Auto (Un sp spec)Ordered By: Jaden Jauregui on 08-25-2024 Lymphocytes/100 WBC (Bld) 10.3 % Low 19-41 [facility] MCV (mean corpuscular volume ) determinationOrdered By: Jaden Jauregui on 08-25-2024 MCV (RBC) [Entitic vol] 95.8 fL High 80-94 [facility] Mean corpuscular hemoglobin (MCH) determinationOrdered By: Jaden Jauregui on 08-25-2024 MCH (RBC) [Entitic mass] 31.4 pg 27.0-32.0 [facility] Mean corpuscular hemoglobin concentration (MCHC) determinationOrdered By: Jaden Jauregui on 08-25-2024 MCHC (RBC) [Mass/Vol] 32.8 g/dL 32-36 [facility] Mean platelet volume determi nationOrdered By: Jaden Jauregui on 08-25-2024 Platelet mean volume (Bld) [Entitic vol] 9.5 fL 6.2-12.0 [facility] Monocyte percentageOrdered B y: Jaden Jauregui on 08-25-2024 Monocytes/100 WBC (Bld) 9.9 % 0-10 [facility] Neutrophil percentageOrdered By: Jaden Jauregui on 08-25-2024 Neutrophils/100 WBC (Bld) 78.4 % High 47-70 [facility] Nucleated red blood cell per centageOrdered By: Jaden Jauregui on 08-25-2024 Nucleated RBC/100 WBC (Bld) [Ratio] 0 % 0-5 [facility] Platelet countOrdered By: Joseph Jauregui on 08-25-2024 Platelets (Bld) [#/Vol] 245 10*3/uL 150-450 [facility] Potassium (Unsp spec) [Mass/ Vol]Ordered By: Jaden Jauregui on 08-25-2024 Potassium [Moles/Vol] 3.8 mmol/L 3.3-5.1 [facility] RBC Auto (Bld) [#/Vol]Ordere d By: Jaden Jauregui on 08-25-2024 RBC (Bld) [#/Vol] 4.52 10*6/uL Low 4.6-6.2 [facility] Serum creatinine measurement (mass/volume)Ordered By: Jaden Jauregui on 08-25-2024 Creatinine [Mass/Vol] 1.17 mg/dL 0.70-1.20 [facility] Serum globulin measurementOr dered By: Jaden Jauregui on 08-25-2024 Globulin (S) [Mass/Vol] 3.2 g/dL 2.2-4.2 [facility] Serum glucose measurement (m ass/volume)Ordered By: Jaden Jauregui on 08-25-2024 Glucose [Mass/Vol] 98 mg/dL 70-99 [facility] Serum or plasma alanine saul otransferase (ALT) measurementOrdered By: Jaden Jauregui on 08-25-2024 ALT [Catalytic activity/Vol] 32 U/L <47 [facility] Serum or plasma albumin luis urement (mass/volume)Ordered By: Jaden Jauregui on 08-25-2024 Albumin [Mass/Vol] 4.5 g/dL 3.4-4.8 [facility] Serum or plasma albumin/glob ulin mass ratioOrdered By: Jaden Jauregui on 08-25-2024 Albumin/Globulin [Mass ratio] 1.4 {ratio} 0.9-2.4 [facility] Serum or plasma alkaline kathleen sphatase measurementOrdered By: Jaden Jauregui on 08-25-2024 ALP [Catalytic activity/Vol] 77 U/L 40-129 [facility] Serum or plasma calcium luis urement (mass/volume)Ordered By: Jaden Jauregui on 08-25-2024 Calcium [Mass/Vol] 10.0 mg/dL 7.6-11.0 [facility] Serum or plasma urea nitroge n measurement (mass/volume)Ordered By: Jaden Jauregui on 08-25-2024 Urea nitrogen [Mass/Vol] 25 mg/dL High 4-19 [facility] Sodium levelOrdered By: Maurice Jauregui on 08-25-2024 Sodium [Moles/Vol] 139 mmol/L 133-145 [facility] Total proteinOrdered By: Rad Jauregui on 08-25-2024 Protein [Mass/Vol] 7.7 g/dL 5.9-8.4 [facility] White blood cell (WBC) count Ordered By: Jaden Jauregui on 08-25-2024 WBC (Bld) [#/Vol] 5.9 10*3/uL 4.4-11.0 [facility] 37-MK-Mmizyou DOrdered By: Landry Prather on 07-15-2024 Vitamin D 25-Hydroxy 36.0 ng/mL [facility] Comment on above: Vitamin D 25(OH) Sta tus Range Deficiency <20 ng/mL (50nmol/L) Insufficiency 20 - 30 ng/mL (50 - 75 nmol/L) Sufficiency 30 - 100 ng/mL (75 - 250 nmol/L) Toxicity >100 ng/mL (>250 nmol/L) Absolute neutrophil countOrd ered By: Carla Prather on 07-15-2024 Neutrophils (Bld) [#/Vol] 2.7 10*3/uL 2.0-7.7 [facility] Albumin to globulin ratioOrd ered By: Carla Prather on 07-15-2024 Albumin/Globulin [Mass ratio] 1.0 {ratio} Normal 0.9-2.4 [facility] Comment on above: Order Comment: 414-2 Performed By: #### L 500.4050, L100.0100, L506.1000, L501.9985, L501.7900, L503.0105, L501.5200 ####[facility] [address] [place], [address] Basophil percentageOrdered B y: Carla Prather on 07-15-2024 Basophils/100 WBC (Bld) 1.4 % High 0-1 [facility] Bilirubin, totalOrdered By: Carla Prather on 07-15-2024 Bilirubin [Mass/Vol] 0.30 mg/dL Normal 0.20-1.00 [facility] Comment on above: For patients on eltr ombopag therapy, use of Dimension [place] TBIL is not recommended. Order Comment: 414-2 Result Comment: For patients on eltrombopag therapy, use of Dimension [place] TBIL is not recommended. Performed By: #### L 500.4050, L100.0100, L506.1000, L501.9985, L501.7900, L503.0105, L501.5200 ####[facility] [address] [place], [address] Blood urea nitrogen (BUN)/cr eatinine ratioOrdered By: Carla Prather on 07-15-2024 Urea nitrogen/Creatinine [Mass ratio] 25.4 mg/mg High 10-20 [facility] CBC W/Diff, Automatedon 06-20 Absolute Lymph 1.38 X10 3/uL Normal 0.83-4.51 [facility] Comment on above: Order Comment: 414-2 Performed By: #### L 500.4050, L100.0100, L506.1000, L501.9985, L501.7900, L503.0105, L501.5200 ####[facility] [address] [place], [address] Absolute Neut 2.7 X10 3/uL Normal 2.0-7.7 [facility] Comment on above: Order Comment: 414-2 Performed By: #### L 500.4050, L100.0100, L506.1000, L501.9985, L501.7900, L503.0105, L501.5200 ####[facility] [address] [place], [address] Basophils/100 WBC (Bld) 1.4 % High 0-1 [facility] Comment on above: Order Comment: 414-2 Performed By: #### L 500.4050, L100.0100, L506.1000, L501.9985, L501.7900, L503.0105, L501.5200 ####[facility] [address] [place], [address] Eosinophils/100 WBC (Bld) 9.4 % High 0-5 [facility] Comment on above: Order Comment: 414-2 Performed By: #### L 500.4050, L100.0100, L506.1000, L501.9985, L501.7900, L503.0105, L501.5200 ####[facility] [address] [place], [address] Erythrocyte distribution width (RBC) [Ratio] 12.8 % Normal 11.6-14.6 [facility] Comment on above: Order Comment: 414-2 Performed By: #### L 500.4050, L100.0100, L506.1000, L501.9985, L501.7900, L503.0105, L501.5200 ####[facility] [id number] [place], [address] Hematocrit (Bld) [Volume fraction] 45.8 % Normal 40-54 [facility] Comment on above: Order Comment: 414-2 Performed By: #### L 500.4050, L100.0100, L506.1000, L501.9985, L501.7900, L503.0105, L501.5200 ####[facility] [id number] [place], [address] Hemoglobin (Bld) [Mass/Vol] 14.8 g/dL Normal 13.0-16.5 [facility] Comment on above: Order Comment: 414-2 Performed By: #### L 500.4050, L100.0100, L506.1000, L501.9985, L501.7900, L503.0105, L501.5200 ####[facility] [address] [place], [address] IG% 0.400 Normal 0.0-0.9 [facility] Comment on above: Order Comment: 414-2 Result Comment: IG% - Immature Granulocytes (promyelocytes, myelocytes andmetamyelocytes) > 1% indicates that a LEFT SHIFT is Present. Performed By: #### L 500.4050, L100.0100, L506.1000, L501.9985, L501.7900, L503.0105, L501.5200 ####[facility] [address] [place], [address] Lymphocytes/100 WBC (Bld) 26.9 % Normal 19-41 [facility] Comment on above: Order Comment: 414-2 Performed By: #### L 500.4050, L100.0100, L506.1000, L501.9985, L501.7900, L503.0105, L501.5200 ####[facility] [address] [place], [address] MCH (RBC) [Entitic mass] 31.2 pg Normal 27.0-32.0 [facility] Comment on above: Order Comment: 414-2 Performed By: #### L 500.4050, L100.0100, L506.1000, L501.9985, L501.7900, L503.0105, L501.5200 ####[facility] [address] [place], [address] MCHC (RBC) [Mass/Vol] 32.3 g/dL Normal 32-36 [facility] Comment on above: Order Comment: 414-2 Performed By: #### L 500.4050, L100.0100, L506.1000, L501.9985, L501.7900, L503.0105, L501.5200 ####[facility] [address] [place], [address] MCV (RBC) [Entitic vol] 96.4 fL High 80-94 [facility] Comment on above: Order Comment: 414-2 Performed By: #### L 500.4050, L100.0100, L506.1000, L501.9985, L501.7900, L503.0105, L501.5200 ####[facility] [address] [place], [address] Monocytes/100 WBC (Bld) 8.8 % Normal 0-10 [facility] Comment on above: Order Comment: 414-2 Performed By: #### L 500.4050, L100.0100, L506.1000, L501.9985, L501.7900, L503.0105, L501.5200 ####[facility] [address] [place], [address] Neutrophils/100 WBC (Bld) 53.1 % Normal 47-70 [facility] Comment on above: Order Comment: 414-2 Performed By: #### L 500.4050, L100.0100, L506.1000, L501.9985, L501.7900, L503.0105, L501.5200 ####[facility] [address] [place], [address] Nucleated RBC (Bld) [#/Vol] 0 10*3/uL Normal 0-5 [facility] Comment on above: Order Comment: 414-2 Performed By: #### L 500.4050, L100.0100, L506.1000, L501.9985, L501.7900, L503.0105, L501.5200 ####[facility] [address] [place], [address] Platelet mean volume (Bld) [Entitic vol] 9.6 fL Normal 6.2-12.0 [facility] Comment on above: Order Comment: 414-2 Performed By: #### L 500.4050, L100.0100, L506.1000, L501.9985, L501.7900, L503.0105, L501.5200 ####[facility] [address] [place], [address] Platelets (Bld) [#/Vol] 295 10*3/uL Normal 150-450 [facility] Comment on above: Order Comment: 414-2 Performed By: #### L 500.4050, L100.0100, L506.1000, L501.9985, L501.7900, L503.0105, L501.5200 ####[facility] [address] [place], [address] RBC (Bld) [#/Vol] 4.75 10*6/uL Normal 4.6-6.2 [facility] Comment on above: Order Comment: 414-2 Performed By: #### L 500.4050, L100.0100, L506.1000, L501.9985, L501.7900, L503.0105, L501.5200 ####[facility] [address] [place], [address] RDW SD 45.4 fl High 35.1-43.9 [facility] Comment on above: Order Comment: 414-2 Performed By: #### L 500.4050, L100.0100, L506.1000, L501.9985, L501.7900, L503.0105, L501.5200 ####[facility] [address] [place], [address] WBC (Bld) [#/Vol] 5.1 10*3/uL Normal 4.4-11.0 [facility] Comment on above: Order Comment: 414-2 Performed By: #### L 500.4050, L100.0100, L506.1000, L501.9985, L501.7900, L503.0105, L501.5200 ####[facility] [address] [place], [address] Carbamazepine (Tegretol)on 0 07-15-2024 CARBAMAZEPINE 7.0 ug/mL Normal 4.0-12.0 [facility] Comment on above: Order Comment: 414-2 Performed By: #### L 500.4050, L100.0100, L506.1000, L501.9985, L501.7900, L503.0105, L501.5200 ####[facility] [address] [place], [address] Carbon dioxide measurementOr dered By: Carla Prather on 07-15-2024 CO2 [Moles/Vol] 24.0 mmol/L Normal 21.0-32.0 [facility] Comment on above: Order Comment: 414-2 Performed By: #### L 500.4050, L100.0100, L506.1000, L501.9985, L501.7900, L503.0105, L501.5200 ####[facility] [address] [place], [address] Chloride measurementOrdered By: Carla Prather on 07-15-2024 Chloride [Moles/Vol] 107 mmol/L Normal 98-107 [facility] Comment on above: Order Comment: 414-2 Performed By: #### L 500.4050, L100.0100, L506.1000, L501.9985, L501.7900, L503.0105, L501.5200 ####[facility] [address] [place], [address] Comprehensive Metabolic Prof ilon 07-15-2024 ALK P 70 U/L Normal 45-117 [facility] Comment on above: Order Comment: 414-2 Performed By: #### L 500.4050, L100.0100, L506.1000, L501.9985, L501.7900, L503.0105, L501.5200 ####[facility] [address] [place], [address] BUN/CRE 25.4 RATIO High 10-20 [facility] Comment on above: Order Comment: 414-2 Performed By: #### L 500.4050, L100.0100, L506.1000, L501.9985, L501.7900, L503.0105, L501.5200 ####[facility] [address] [place], [address] CA,Total 10.1 mg/dL Normal 8.5-10.1 [facility] Comment on above: Order Comment: 414-2 Performed By: #### L 500.4050, L100.0100, L506.1000, L501.9985, L501.7900, L503.0105, L501.5200 ####[facility] [address] [place], [place], [phone](257) EST GFR - AA 77 mL/min Normal >60 [facility] Comment on above: Order Comment: 414-2 Result Comment: Afri can Slovak GFR Calc Performed By: #### L 500.4050, L100.0100, L506.1000, L501.9985, L501.7900, L503.0105, L501.5200 ####[facility] [address] [place], [place], [phone]) GAP 7 Normal 5-15 [facility] Comment on above: Order Comment: 414-2 Performed By: #### L 500.4050, L100.0100, L506.1000, L501.9985, L501.7900, L503.0105, L501.5200 ####[facility] [address] [place], [place], [phone]) GFR/1.73 sq M.predicted among non-blacks MDRD (S/P/Bld) [Vol rate/Area] 64 mL/min/{1.73_m2} Normal >60 [facility] Comment on above: Order Comment: 414-2 Result Comment: Non- GFR Calc Performed By: #### L 500.4050, L100.0100, L506.1000, L501.9985, L501.7900, L503.0105, L501.5200 ####[facility] [address] [place], [address] T PROT 8.0 g/dL Normal 6.4-8.2 [facility] Comment on above: Order Comment: 414-2 Performed By: #### L 500.4050, L100.0100, L506.1000, L501.9985, L501.7900, L503.0105, L501.5200 ####[facility] [address] [place], [place], [address] Comprehensive Metabolic Prof ilOrdered By: Carla Prather on 07-15-2024 AST [Catalytic activity/Vol] 23 U/L Normal 15-37 [facility] Comment on above: Order Comment: 414-2 Performed By: #### L 500.4050, L100.0100, L506.1000, L501.9985, L501.7900, L503.0105, L501.5200 ####[facility] [address] [place], [place], [address] Eosinophil percentageOrdered By: Carla Prather on 07-15-2024 Eosinophils/100 WBC (Bld) 9.4 % High 0-5 [facility] Erythrocyte distribution wid th ratioOrdered By: Carla Prather on 07-15-2024 Erythrocyte distribution width (RBC) [Ratio] 12.8 % 11.6-14.6 [facility] Erythrocyte distribution wid th standard deviationOrdered By: Carla Prather on 07-15-2024 Erythrocyte distribution width (RBC) [Entitic vol] 45.4 fL High 35.1-43.9 [facility] Estimated glomerular filtrat ion rate (GFR) AmericanOrdered By: Carla Prather on 07-15-2024 Estimated GFR (MDRD) Amer 77 mL/min >60 [facility] Comment on above: GFR Calc Glomerular filtration rate ( GFR) estimationOrdered By: Carla Prather on 07-15-2024 Estimated GFR (MDRD) Non-Af Amer 64 mL/min >60 [facility] Comment on above: Non- GFR Calc Glucose measurementOrdered B y: Carla Prather on 07-15-2024 Glucose [Mass/Vol] 103 mg/dL Normal 74-106 [facility] Comment on above: Fasting Glucose resu lt from 100 to 125 mg/dL suggests IMPAIRED HOMEOSTASIS per A.D.A. criteria. Order Comment: 414-2 Result Comment: Fast ing Glucose result from 100 to 125 mg/dLsuggests IMPAIRED HOMEOSTASIS per A.D.A. criteria. Performed By: #### L 500.4050, L100.0100, L506.1000, L501.9985, L501.7900, L503.0105, L501.5200 ####[facility] [address] [place], [place], [address] Hematocrit Auto (Bld) [Volum e fraction]Ordered By: Carla Prather on 07-15-2024 Hematocrit (Bld) [Volume fraction] 45.8 % 40-54 [facility] Hemoglobin A1con 07-15-2024 HbA1c (Bld) [Mass fraction] 5.6 % Normal 3.8-5.6 [facility] Comment on above: Order Comment: 414-2 Result Comment: Norm al < 5.7 % Prediabetic 5.7 - 6.4 % Diabetic >or= 6.5 % Please note range changes. Performed By: #### L 500.4050, L100.0100, L506.1000, L501.9985, L501.7900, L503.0105, L501.5200 ####[facility] [address] [place], [place], [phone] Hemoglobin A1c percentageOrd ered By: Carla Prather on 07-15-2024 HbA1c (Bld) [Mass fraction] 5.6 % 3.8-5.6 [facility] Comment on above: Normal < 5.7 % Predi abetic 5.7 - 6.4 % Diabetic >or= 6.5 % Please note range changes. Hemoglobin measurementOrdere d By: Carla Prather on 07-15-2024 Hemoglobin (Bld) [Mass/Vol] 14.8 g/dL 13.0-16.5 [facility] Immature granulocytes/100 WB C Auto (Bld)Ordered By: Carla Prather on 07-15-2024 Immature granulocytes/100 WBC (Bld) 0.400 % 0.0-0.9 [facility] Comment on above: IG% - Immature Granu locytes (promyelocytes, myelocytes and metamyelocytes) > 1% indicates that a LEFT SHIFT is Present. Lymphocytes Auto (Unsp spec) [#/Vol]Ordered By: Carla Prather on 07-15-2024 Lymphocytes (Bld) [#/Vol] 1.38 10*3/uL 0.83-4.51 [facility] Lymphocytes/100 WBC Auto (Un sp spec)Ordered By: Carla Prather on 07-15-2024 Lymphocytes/100 WBC (Bld) 26.9 % 19-41 [facility] MCV (mean corpuscular volume ) determinationOrdered By: Carla Prather on 07-15-2024 MCV (RBC) [Entitic vol] 96.4 fL High 80-94 [facility] Magnesium measurementOrdered By: Carla Prather on 07-15-2024 Magnesium [Mass/Vol] 2.1 mg/dL Normal 1.6-2.6 [facility] Comment on above: Order Comment: 414-2 Performed By: #### L 500.4050, L100.0100, L506.1000, L501.9985, L501.7900, L503.0105, L501.5200 ####[facility] [address] [place], [address] Mean corpuscular hemoglobin (MCH) determinationOrdered By: Carla Prather on 07-15-2024 MCH (RBC) [Entitic mass] 31.2 pg 27.0-32.0 [facility] Mean corpuscular hemoglobin concentration (MCHC) determinationOrdered By: Carla Prather on 07-15-2024 MCHC (RBC) [Mass/Vol] 32.3 g/dL 32-36 [facility] Mean platelet volume determi nationOrdered By: Carla Prather on 07-15-2024 Platelet mean volume (Bld) [Entitic vol] 9.6 fL 6.2-12.0 [facility] Monocyte percentageOrdered B y: Carla Prather on 07-15-2024 Monocytes/100 WBC (Bld) 8.8 % 0-10 [facility] Neutrophil percentageOrdered By: Carla Prather on 07-15-2024 Neutrophils/100 WBC (Bld) 53.1 % 47-70 [facility] Nucleated red blood cell per centageOrdered By: Carla Prather on 07-15-2024 Nucleated RBC/100 WBC (Bld) [Ratio] 0 % 0-5 [facility] Platelet countOrdered By: Wilfredo Prather on 07-15-2024 Platelets (Bld) [#/Vol] 295 10*3/uL 150-450 [facility] Potassium measurementOrdered By: Carla Prather on 07-15-2024 Potassium [Moles/Vol] 3.8 mmol/L Normal 3.5-5.1 [facility] Comment on above: Order Comment: 414-2 Performed By: #### L 500.4050, L100.0100, L506.1000, L501.9985, L501.7900, L503.0105, L501.5200 ####[facility] [address] [place], [place], [id number] RBC Auto (Bld) [#/Vol]Ordere d By: Carla Prather on 07-15-2024 RBC (Bld) [#/Vol] 4.75 10*6/uL 4.6-6.2 [facility] Serum anion gap measurementO rdered By: Carla Prather on 07-15-2024 Anion gap [Moles/Vol] 7 mmol/L 5-15 [facility] Serum globulin measurementOr dered By: Carla Prather on 07-15-2024 Globulin (S) [Mass/Vol] 4.1 g/dL Normal 2.2-4.2 [facility] Comment on above: Order Comment: 414-2 Performed By: #### L 500.4050, L100.0100, L506.1000, L501.9985, L501.7900, L503.0105, L501.5200 ####[facility] [address] [place], [place], [address] Serum or plasma alanine saul otransferase (ALT) measurementOrdered By: Carla Prather on 07-15-2024 ALT [Catalytic activity/Vol] 37 U/L Normal 16-61 [facility] Comment on above: Order Comment: 414-2 Performed By: #### L 500.4050, L100.0100, L506.1000, L501.9985, L501.7900, L503.0105, L501.5200 ####[facility] [address] [place], [place], [phone] Serum or plasma albumin luis urement (mass/volume)Ordered By: Carla Prather on 07-15-2024 Albumin [Mass/Vol] 3.9 g/dL Normal 3.2-5.0 [facility] Comment on above: Order Comment: 414-2 Performed By: #### L 500.4050, L100.0100, L506.1000, L501.9985, L501.7900, L503.0105, L501.5200 ####[facility] [address] [place], [place], [phone] Serum or plasma alkaline kathleen sphatase measurementOrdered By: Carla Prather on 07-15-2024 ALP [Catalytic activity/Vol] 70 U/L 45-117 [facility] Serum or plasma calcium luis urement (mass/volume)Ordered By: Carla Prather on 07-15-2024 Calcium [Mass/Vol] 10.1 mg/dL 8.5-10.1 [facility] Serum or plasma creatinine m easurement (mass/volume)Ordered By: Carla Prather on 07-15-2024 Creatinine [Mass/Vol] 1.18 mg/dL Normal 0.70-1.30 [facility] Comment on above: The validity of the calculated GFR & GFRAA in patients over 70 years has not been determined. Clinical correlation is essential. Order Comment: 414-2 Result Comment: The validity of the calculated GFR GFRAA in patients over70 years has not been determined. Clinical correlation isessential. Performed By: #### L 500.4050, L100.0100, L506.1000, L501.9985, L501.7900, L503.0105, L501.5200 ####[facility] [address] [place], [address] Serum or plasma urea nitroge n measurement (mass/volume)Ordered By: Carla Prather on 07-15-2024 Urea nitrogen [Mass/Vol] 30 mg/dL High 7-18 [facility] Comment on above: Order Comment: 414-2 Performed By: #### L 500.4050, L100.0100, L506.1000, L501.9985, L501.7900, L503.0105, L501.5200 ####[facility] [address] [place], [address] Sodium levelOrdered By: Luca Prather on 07-15-2024 Sodium [Moles/Vol] 138 mmol/L Normal 136-145 [facility] Comment on above: Order Comment: 414-2 Performed By: #### L 500.4050, L100.0100, L506.1000, L501.9985, L501.7900, L503.0105, L501.5200 ####[facility] [address] [place], [address] Total proteinOrdered By: Ming Prather on 07-15-2024 Protein [Mass/Vol] 8.0 g/dL 6.4-8.2 [facility] Vitamin B12on 07-15-2024 Cobalamin (Vitamin B12) [Mass/Vol] 692 pg/mL Normal 211-911 [facility] Comment on above: Order Comment: 414-2 Performed By: #### L 500.4050, L100.0100, L506.1000, L501.9985, L501.7900, L503.0105, L501.5200 ####[facility] [address] [place], [place], [address] Vitamin B12 measurementOrder ed By: Carla Prather on 07-15-2024 Cobalamin (Vitamin B12) [Mass/Vol] 692 pg/mL 211-911 [facility] Vitamin D,25 Hydroxyon 07-15 Vitamin D 25-OH 36.0 ng/mL Normal [facility] Comment on above: Order Comment: 414-2 Result Comment: Teri min D 25(OH) Status Range Deficiency <20 ng/mL (50nmol/L) Insufficiency 20 - 30 ng/mL (50 - 75 nmol/L) Sufficiency 30 - 100 ng/mL (75 - 250 nmol/L) Toxicity >100 ng/mL (>250 nmol/L) Performed By: #### L 500.4050, L100.0100, L506.1000, L501.9985, L501.7900, L503.0105, L501.5200 ####[facility] [address] [place], [address] White blood cell (WBC) count Ordered By: Carla Prather on 07-15-2024 WBC (Bld) [#/Vol] 5.1 10*3/uL 4.4-11.0 [facility] carBAMazepine [Mass/Vol]Orde red By: Carla Prather on 07-15-2024 Carbamazepine (Tegretol) Level 7.0 ug/mL 4.0-12.0 [facility] Basic Metabolic Profile (BMP )on 04-15-2024 BUN Normal - [facility] Comment on above: Result Comment: Canc elled via OM: Order cancelled - Patient discharged Performed By: #### L 100.0100, L500.2500 ####[facility] [address] [place], [address] BUN/CRE Normal - [facility] Comment on above: Result Comment: Canc elled via OM: Order cancelled - Patient discharged Performed By: #### L 100.0100, L500.2500 ####[facility] [address] [place], [address] CA,Total Normal 8.5-10.1 [facility] Comment on above: Result Comment: Canc elled via OM: Order cancelled - Patient discharged Performed By: #### L 100.0100, L500.2500 ####[facility] [address] [place], [address] CL Normal 98-107 [facility] Comment on above: Result Comment: Canc elled via OM: Order cancelled - Patient discharged Performed By: #### L 100.0100, L500.2500 ####[facility] [address] [place], [address] CO2 Normal 21.0-32.0 [facility] Comment on above: Result Comment: Canc elled via OM: Order cancelled - Patient discharged Performed By: #### L 100.0100, L500.2500 ####[facility] [address] [place], [address] CREAT,SERUM Normal 0.70-1.30 [facility] Comment on above: Result Comment: Canc elled via OM: Order cancelled - Patient discharged Performed By: #### L 100.0100, L500.2500 ####[facility] [address] [place], [address] EST GFR Normal >60 [facility] Comment on above: Result Comment: Canc elled via OM: Order cancelled - Patient discharged Performed By: #### L 100.0100, L500.2500 ####[facility] [address] [place], [address] EST GFR - AA Normal >60 [facility] Comment on above: Result Comment: Canc elled via OM: Order cancelled - Patient discharged Performed By: #### L 100.0100, L500.2500 ####[facility] [address] [place], [address] GAP Normal 5-15 [facility] Comment on above: Result Comment: Canc elled via OM: Order cancelled - Patient discharged Performed By: #### L 100.0100, L500.2500 ####[facility] [address] [place], [address] GLU Normal 74-106 [facility] Comment on above: Result Comment: Canc elled via OM: Order cancelled - Patient discharged Performed By: #### L 100.0100, L500.2500 ####[facility] [address] [place], [address] Potassium Normal 3.5-5.1 [facility] Comment on above: Result Comment: Canc elled via OM: Order cancelled - Patient discharged Performed By: #### L 100.0100, L500.2500 ####[facility] [address] [place], [address] Basic Metabolic Profile (BMP) Normal 136-145 [facility] Comment on above: Result Comment: Canc elled via OM: Order cancelled - Patient discharged Performed By: #### L 100.0100, L500.2500 ####[facility] [address] [place], [address] CBC W/Diff, Automatedon 10-2 Absolute Neut Normal 2.0-7.7 [facility] Comment on above: Result Comment: Canc elled via OM: Order cancelled - Patient discharged Performed By: #### L 100.0100, L500.2500 ####[facility] [address] [place], [address] HCT Normal 40-54 [facility] Comment on above: Result Comment: Canc elled via OM: Order cancelled - Patient discharged Performed By: #### L 100.0100, L500.2500 ####[facility] [address] [place], [address] HGB Normal 13.0-16.5 [facility] Comment on above: Result Comment: Canc elled via OM: Order cancelled - Patient discharged Performed By: #### L 100.0100, L500.2500 ####[facility] [address] [place], [address] MCH Normal 27.0-32.0 [facility] Comment on above: Result Comment: Canc elled via OM: Order cancelled - Patient discharged Performed By: #### L 100.0100, L500.2500 ####[facility] [address] [place], [address] MCHC Normal 32-36 [facility] Comment on above: Result Comment: Canc elled via OM: Order cancelled - Patient discharged Performed By: #### L 100.0100, L500.2500 ####[facility] [address] [place], [address] MCV Normal 80-94 [facility] Comment on above: Result Comment: Canc elled via OM: Order cancelled - Patient discharged Performed By: #### L 100.0100, L500.2500 ####[facility] [address] [place], [address] NEUT% Normal 47-70 [facility] Comment on above: Result Comment: Canc elled via OM: Order cancelled - Patient discharged Performed By: #### L 100.0100, L500.2500 ####[facility] [address] [place], [address] PLT Normal 150-450 [facility] Comment on above: Result Comment: Canc elled via OM: Order cancelled - Patient discharged Performed By: #### L 100.0100, L500.2500 ####[facility] [address] [place], [address] RBC Normal 4.6-6.2 [facility] Comment on above: Result Comment: Canc elled via OM: Order cancelled - Patient discharged Performed By: #### L 100.0100, L500.2500 ####[facility] [address] [place], [address] RDW CV Normal 11.6-14.6 [facility] Comment on above: Result Comment: Canc elled via OM: Order cancelled - Patient discharged Performed By: #### L 100.0100, L500.2500 ####[facility] [address] [place], [address] RDW SD Normal 35.1-43.9 [facility] Comment on above: Result Comment: Canc elled via OM: Order cancelled - Patient discharged Performed By: #### L 100.0100, L500.2500 ####[facility] [address] [place], [address] WBC Normal 4.4-11.0 [facility] Comment on above: Result Comment: Canc elled via OM: Order cancelled - Patient discharged Performed By: #### L 100.0100, L500.2500 ####[facility] [address] [place], [address] Basic Metabolic Profile (BMP )on 04-14-2024 BUN Normal - [facility] Comment on above: Result Comment: Canc elled via OM: Order cancelled - Patient discharged Performed By: #### L 100.0100, L500.2500 ####[facility] [address] [place], [address] BUN/CRE Normal - [facility] Comment on above: Result Comment: Canc elled via OM: Order cancelled - Patient discharged Performed By: #### L 100.0100, L500.2500 ####[facility] [address] [place], [address] CA,Total Normal 8.5-10.1 [facility] Comment on above: Result Comment: Canc elled via OM: Order cancelled - Patient discharged Performed By: #### L 100.0100, L500.2500 ####[facility] [address] [place], [address] CL Normal 98-107 [facility] Comment on above: Result Comment: Canc elled via OM: Order cancelled - Patient discharged Performed By: #### L 100.0100, L500.2500 ####[facility] [address] [place], [address] CO2 Normal 21.0-32.0 [facility] Comment on above: Result Comment: Canc elled via OM: Order cancelled - Patient discharged Performed By: #### L 100.0100, L500.2500 ####[facility] [address] [place], [address] CREAT,SERUM Normal 0.70-1.30 [facility] Comment on above: Result Comment: Canc elled via OM: Order cancelled - Patient discharged Performed By: #### L 100.0100, L500.2500 ####[facility] [address] [place], [address] EST GFR Normal >60 [facility] Comment on above: Result Comment: Canc elled via OM: Order cancelled - Patient discharged Performed By: #### L 100.0100, L500.2500 ####[facility] [address] [place], [address] EST GFR - AA Normal >60 [facility] Comment on above: Result Comment: Canc elled via OM: Order cancelled - Patient discharged Performed By: #### L 100.0100, L500.2500 ####[facility] [address] [place], [address] GAP Normal 5-15 [facility] Comment on above: Result Comment: Canc elled via OM: Order cancelled - Patient discharged Performed By: #### L 100.0100, L500.2500 ####[facility] [address] [place], [address] GLU Normal 74-106 [facility] Comment on above: Result Comment: Canc elled via OM: Order cancelled - Patient discharged Performed By: #### L 100.0100, L500.2500 ####[facility] [address] [place], [address] Potassium Normal 3.5-5.1 [facility] Comment on above: Result Comment: Canc elled via OM: Order cancelled - Patient discharged Performed By: #### L 100.0100, L500.2500 ####[facility] [address] [place], [address] Basic Metabolic Profile (BMP) Normal 136-145 [facility] Comment on above: Result Comment: Canc elled via OM: Order cancelled - Patient discharged Performed By: #### L 100.0100, L500.2500 ####[facility] [address] [place], [address] CBC W/Diff, Automatedon 10-2 Absolute Neut Normal 2.0-7.7 [facility] Comment on above: Result Comment: Canc elled via OM: Order cancelled - Patient discharged Performed By: #### L 100.0100, L500.2500 ####[facility] [address] [place], [address] HCT Normal 40-54 [facility] Comment on above: Result Comment: Canc elled via OM: Order cancelled - Patient discharged Performed By: #### L 100.0100, L500.2500 ####[facility] [address] [place], [address] HGB Normal 13.0-16.5 [facility] Comment on above: Result Comment: Canc elled via OM: Order cancelled - Patient discharged Performed By: #### L 100.0100, L500.2500 ####[facility] [address] [place], [address] MCH Normal 27.0-32.0 [facility] Comment on above: Result Comment: Canc elled via OM: Order cancelled - Patient discharged Performed By: #### L 100.0100, L500.2500 ####[facility] [address] [place], [address] MCHC Normal 32-36 [facility] Comment on above: Result Comment: Canc elled via OM: Order cancelled - Patient discharged Performed By: #### L 100.0100, L500.2500 ####[facility] [address] [place], [address] MCV Normal 80-94 [facility] Comment on above: Result Comment: Canc elled via OM: Order cancelled - Patient discharged Performed By: #### L 100.0100, L500.2500 ####[facility] [address] [place], [address] NEUT% Normal 47-70 [facility] Comment on above: Result Comment: Canc elled via OM: Order cancelled - Patient discharged Performed By: #### L 100.0100, L500.2500 ####[facility] [address] [place], [address] PLT Normal 150-450 [facility] Comment on above: Result Comment: Canc elled via OM: Order cancelled - Patient discharged Performed By: #### L 100.0100, L500.2500 ####[facility] [address] [place], [address] RBC Normal 4.6-6.2 [facility] Comment on above: Result Comment: Canc elled via OM: Order cancelled - Patient discharged Performed By: #### L 100.0100, L500.2500 ####[facility] [address] [place], [address] RDW CV Normal 11.6-14.6 [facility] Comment on above: Result Comment: Canc elled via OM: Order cancelled - Patient discharged Performed By: #### L 100.0100, L500.2500 ####[facility] [address] [place], [address] RDW SD Normal 35.1-43.9 [facility] Comment on above: Result Comment: Canc elled via OM: Order cancelled - Patient discharged Performed By: #### L 100.0100, L500.2500 ####[facility] [address] [place], [address] WBC Normal 4.4-11.0 [facility] Comment on above: Result Comment: Canc elled via OM: Order cancelled - Patient discharged Performed By: #### L 100.0100, L500.2500 ####[facility] [address] [place], [address] Basic Metabolic Profile (BMP )on 04-13-2024 BUN Normal -18 [facility] Comment on above: Result Comment: Canc elled via OM: Order cancelled - Patient discharged Performed By: #### L 100.0100, L500.2500 ####[facility] [address] [place], [address] BUN/CRE Normal 10-20 [facility] Comment on above: Result Comment: Canc elled via OM: Order cancelled - Patient discharged Performed By: #### L 100.0100, L500.2500 ####[facility] [address] [place], [address] CA,Total Normal 8.5-10.1 [facility] Comment on above: Result Comment: Canc elled via OM: Order cancelled - Patient discharged Performed By: #### L 100.0100, L500.2500 ####[facility] [address] [place], [address] CL Normal 98-107 [facility] Comment on above: Result Comment: Canc elled via OM: Order cancelled - Patient discharged Performed By: #### L 100.0100, L500.2500 ####[facility] [address] [place], [address] CO2 Normal 21.0-32.0 [facility] Comment on above: Result Comment: Canc elled via OM: Order cancelled - Patient discharged Performed By: #### L 100.0100, L500.2500 ####[facility] [address] [place], [address] CREAT,SERUM Normal 0.70-1.30 [facility] Comment on above: Result Comment: Canc elled via OM: Order cancelled - Patient discharged Performed By: #### L 100.0100, L500.2500 ####[facility] [address] [place], [address] EST GFR Normal >60 [facility] Comment on above: Result Comment: Canc elled via OM: Order cancelled - Patient discharged Performed By: #### L 100.0100, L500.2500 ####[facility] [address] [place], [address] EST GFR - AA Normal >60 [facility] Comment on above: Result Comment: Canc elled via OM: Order cancelled - Patient discharged Performed By: #### L 100.0100, L500.2500 ####[facility] [address] [place], [address] GAP Normal 5-15 [facility] Comment on above: Result Comment: Canc elled via OM: Order cancelled - Patient discharged Performed By: #### L 100.0100, L500.2500 ####[facility] [address] [place], [address] GLU Normal 74-106 [facility] Comment on above: Result Comment: Canc elled via OM: Order cancelled - Patient discharged Performed By: #### L 100.0100, L500.2500 ####[facility] [address] [place], [address] Potassium Normal 3.5-5.1 [facility] Comment on above: Result Comment: Canc elled via OM: Order cancelled - Patient discharged Performed By: #### L 100.0100, L500.2500 ####[facility] [address] [place], [address] Basic Metabolic Profile (BMP) Normal 136-145 [facility] Comment on above: Result Comment: Canc elled via OM: Order cancelled - Patient discharged Performed By: #### L 100.0100, L500.2500 ####[facility] [address] [place], [address] CBC W/Diff, Automatedon 10-2 Absolute Neut Normal 2.0-7.7 [facility] Comment on above: Result Comment: Canc elled via OM: Order cancelled - Patient discharged Performed By: #### L 100.0100, L500.2500 ####[facility] [address] [place], [address] HCT Normal 40-54 [facility] Comment on above: Result Comment: Canc elled via OM: Order cancelled - Patient discharged Performed By: #### L 100.0100, L500.2500 ####[facility] [address] [place], [address] HGB Normal 13.0-16.5 [facility] Comment on above: Result Comment: Canc elled via OM: Order cancelled - Patient discharged Performed By: #### L 100.0100, L500.2500 ####[facility] [address] [place], [address] MCH Normal 27.0-32.0 [facility] Comment on above: Result Comment: Canc elled via OM: Order cancelled - Patient discharged Performed By: #### L 100.0100, L500.2500 ####[facility] [address] [place], [address] MCHC Normal 32-36 [facility] Comment on above: Result Comment: Canc elled via OM: Order cancelled - Patient discharged Performed By: #### L 100.0100, L500.2500 ####[facility] [address] [place], [address] MCV Normal 80-94 [facility] Comment on above: Result Comment: Canc elled via OM: Order cancelled - Patient discharged Performed By: #### L 100.0100, L500.2500 ####[facility] [address] [place], [address] NEUT% Normal 47-70 [facility] Comment on above: Result Comment: Canc elled via OM: Order cancelled - Patient discharged Performed By: #### L 100.0100, L500.2500 ####[facility] [address] [place], [address] PLT Normal 150-450 [facility] Comment on above: Result Comment: Canc elled via OM: Order cancelled - Patient discharged Performed By: #### L 100.0100, L500.2500 ####[facility] [address] [place], [address] RBC Normal 4.6-6.2 [facility] Comment on above: Result Comment: Canc elled via OM: Order cancelled - Patient discharged Performed By: #### L 100.0100, L500.2500 ####[facility] [address] [place], [address] RDW CV Normal 11.6-14.6 [facility] Comment on above: Result Comment: Canc elled via OM: Order cancelled - Patient discharged Performed By: #### L 100.0100, L500.2500 ####[facility] [address] [place], [address] RDW SD Normal 35.1-43.9 [facility] Comment on above: Result Comment: Canc elled via OM: Order cancelled - Patient discharged Performed By: #### L 100.0100, L500.2500 ####[facility] [address] [place], [address] WBC Normal 4.4-11.0 [facility] Comment on above: Result Comment: Canc elled via OM: Order cancelled - Patient discharged Performed By: #### L 100.0100, L500.2500 ####[facility] [address] [place], [address] Basic Metabolic Profile (BMP )on 04-12-2024 BUN/CRE 21.1 RATIO High 04-07 [facility] Comment on above: Order Comment: 306-2 Performed By: #### L 100.0500, L500.2500 ####[facility] [address] [place], [address] CA,Total 10.1 mg/dL Normal 8.5-10.1 [facility] Comment on above: Order Comment: 306-2 Performed By: #### L 100.0500, L500.2500 ####[facility] [address] [place], [address] Chloride [Moles/Vol] 106 mmol/L Normal 98-107 [facility] Comment on above: Order Comment: 306-2 Performed By: #### L 100.0500, L500.2500 ####[facility] [address] [place], [address] CO2 [Moles/Vol] 27.0 mmol/L Normal 21.0-32.0 [facility] Comment on above: Order Comment: 306-2 Performed By: #### L 100.0500, L500.2500 ####[facility] [address] [place], [address] Creatinine [Mass/Vol] 1.28 mg/dL Normal 0.70-1.30 [facility] Comment on above: Order Comment: 306-2 Result Comment: The validity of the calculated GFR GFRAA in patients over70 years has not been determined. Clinical correlation isessential. Performed By: #### L 100.0500, L500.2500 ####[facility] [address] [place], [address] EST GFR - AA 71 mL/min Normal >60 [facility] Comment on above: Order Comment: 306-2 Result Comment: Afri can [place] GFR Calc Performed By: #### L 100.0500, L500.2500 ####[facility] [address] [place], [address] GAP 7 Normal 5-15 [facility] Comment on above: Order Comment: 306-2 Performed By: #### L 100.0500, L500.2500 ####[facility] [address] [place], [address] GFR/1.73 sq M.predicted among non-blacks MDRD (S/P/Bld) [Vol rate/Area] 58 mL/min/{1.73_m2} Low >60 [facility] Comment on above: Order Comment: 306-2 Result Comment: Non- GFR Calc Performed By: #### L 100.0500, L500.2500 ####[facility] [address] [place], [address] Glucose [Mass/Vol] 94 mg/dL Normal 74-106 [facility] Comment on above: Order Comment: 306-2 Performed By: #### L 100.0500, L500.2500 ####[facility] [address] [place], [address] Potassium [Moles/Vol] 3.6 mmol/L Normal 3.5-5.1 [facility] Comment on above: Order Comment: 306-2 Performed By: #### L 100.0500, L500.2500 ####[facility] [address] [place], [address] Sodium [Moles/Vol] 140 mmol/L Normal 136-145 [facility] Comment on above: Order Comment: 306-2 Performed By: #### L 100.0500, L500.2500 ####[facility] [address] [place], [address] Urea nitrogen [Mass/Vol] 27 mg/dL High 7-18 [facility] Comment on above: Order Comment: 306-2 Performed By: #### L 100.0500, L500.2500 ####[facility] [address] [place], [address] BUN Normal 7-18 [facility] Comment on above: Result Comment: Canc elled via OM: Order cancelled - Patient discharged Performed By: #### L 500.2500, L100.0100 ####[facility] [address] [place], [address] BUN/CRE Normal 10-20 [facility] Comment on above: Result Comment: Canc elled via OM: Order cancelled - Patient discharged Performed By: #### L 500.2500, L100.0100 ####[facility] [address] [place], [address] CA,Total Normal 8.5-10.1 [facility] Comment on above: Result Comment: Canc elled via OM: Order cancelled - Patient discharged Performed By: #### L 500.2500, L100.0100 ####[facility] [address] [place], [address] CL Normal 98-107 [facility] Comment on above: Result Comment: Canc elled via OM: Order cancelled - Patient discharged Performed By: #### L 500.2500, L100.0100 ####[facility] [address] [place], [address] CO2 Normal 21.0-32.0 [facility] Comment on above: Result Comment: Canc elled via OM: Order cancelled - Patient discharged Performed By: #### L 500.2500, L100.0100 ####[facility] [address] [place], [address] CREAT,SERUM Normal 0.70-1.30 [facility] Comment on above: Result Comment: Canc elled via OM: Order cancelled - Patient discharged Performed By: #### L 500.2500, L100.0100 ####[facility] [address] [place], [address] EST GFR Normal >60 [facility] Comment on above: Result Comment: Canc elled via OM: Order cancelled - Patient discharged Performed By: #### L 500.2500, L100.0100 ####[facility] [address] [place], [address] EST GFR - AA Normal >60 [facility] Comment on above: Result Comment: Canc elled via OM: Order cancelled - Patient discharged Performed By: #### L 500.2500, L100.0100 ####[facility] [address] [place], [address] GAP Normal 5-15 [facility] Comment on above: Result Comment: Canc elled via OM: Order cancelled - Patient discharged Performed By: #### L 500.2500, L100.0100 ####[facility] [address] [place], [address] GLU Normal 74-106 [facility] Comment on above: Result Comment: Canc elled via OM: Order cancelled - Patient discharged Performed By: #### L 500.2500, L100.0100 ####[facility] [address] [place], [address] Potassium Normal 3.5-5.1 [facility] Comment on above: Result Comment: Canc elled via OM: Order cancelled - Patient discharged Performed By: #### L 500.2500, L100.0100 ####[facility] [address] [place], [address] Basic Metabolic Profile (BMP) Normal 136-145 [facility] Comment on above: Result Comment: Canc elled via OM: Order cancelled - Patient discharged Performed By: #### L 500.2500, L100.0100 ####[facility] [address] [place], [address] CBC W/Diff, Automatedon 10-2 -2023 Absolute Neut Normal 2.0-7.7 [facility] Comment on above: Result Comment: Canc elled via OM: Order cancelled - Patient discharged Performed By: #### L 500.2500, L100.0100 ####[facility] [address] [place], [address] HCT Normal 40-54 [facility] Comment on above: Result Comment: Canc elled via OM: Order cancelled - Patient discharged Performed By: #### L 500.2500, L100.0100 ####[facility] [address] [place], [address] HGB Normal 13.0-16.5 [facility] Comment on above: Result Comment: Canc elled via OM: Order cancelled - Patient discharged Performed By: #### L 500.2500, L100.0100 ####[facility] [address] [place], [address] MCH Normal 27.0-32.0 [facility] Comment on above: Result Comment: Canc elled via OM: Order cancelled - Patient discharged Performed By: #### L 500.2500, L100.0100 ####[facility] [address] [place], [address] MCHC Normal 32-36 [facility] Comment on above: Result Comment: Canc elled via OM: Order cancelled - Patient discharged Performed By: #### L 500.2500, L100.0100 ####[facility] [address] [place], [address] MCV Normal 80-94 [facility] Comment on above: Result Comment: Canc elled via OM: Order cancelled - Patient discharged Performed By: #### L 500.2500, L100.0100 ####[facility] [address] [place], [address] NEUT% Normal 47-70 [facility] Comment on above: Result Comment: Canc elled via OM: Order cancelled - Patient discharged Performed By: #### L 500.2500, L100.0100 ####[facility] [address] [place], [address] PLT Normal 150-450 [facility] Comment on above: Result Comment: Canc elled via OM: Order cancelled - Patient discharged Performed By: #### L 500.2500, L100.0100 ####[facility] [address] [place], [address] RBC Normal 4.6-6.2 [facility] Comment on above: Result Comment: Canc elled via OM: Order cancelled - Patient discharged Performed By: #### L 500.2500, L100.0100 ####[facility] [address] [place], [address] RDW CV Normal 11.6-14.6 [facility] Comment on above: Result Comment: Canc elled via OM: Order cancelled - Patient discharged Performed By: #### L 500.2500, L100.0100 ####[facility] [address] [place], [address] RDW SD Normal 35.1-43.9 [facility] Comment on above: Result Comment: Canc elled via OM: Order cancelled - Patient discharged Performed By: #### L 500.2500, L100.0100 ####[facility] [address] [place], [address] WBC Normal 4.4-11.0 [facility] Comment on above: Result Comment: Canc elled via OM: Order cancelled - Patient discharged Performed By: #### L 500.2500, L100.0100 ####[facility] [address] [place], [address] CBC-Complete Blood Cnt No Di ffon 04-12-2024 Erythrocyte distribution width (RBC) [Ratio] 13.3 % Normal 11.6-14.6 [facility] Comment on above: Order Comment: 306-2 Performed By: #### L 100.0500, L500.2500 ####[facility] [address] [place], [address] Hematocrit (Bld) [Volume fraction] 49.2 % Normal 40-54 [facility] Comment on above: Order Comment: 306-2 Performed By: #### L 100.0500, L500.2500 ####[facility] [address] [place], [address] Hemoglobin (Bld) [Mass/Vol] 16.4 g/dL Normal 13.0-16.5 [facility] Comment on above: Order Comment: 306-2 Performed By: #### L 100.0500, L500.2500 ####[facility] [address] [place], [address] MCH (RBC) [Entitic mass] 33.4 pg High 27.0-32.0 [facility] Comment on above: Order Comment: 306-2 Performed By: #### L 100.0500, L500.2500 ####[facility] [address] [place], [address] MCHC (RBC) [Mass/Vol] 33.3 g/dL Normal 32-36 [facility] Comment on above: Order Comment: 306-2 Performed By: #### L 100.0500, L500.2500 ####[place] [facility] [facility] [address] [place], [address] MCV (RBC) [Entitic vol] 100.2 fL High 80-94 [facility] Comment on above: Order Comment: 306-2 Performed By: #### L 100.0500, L500.2500 ####[facility] [address] [place], [address] Platelet mean volume (Bld) [Entitic vol] 10.1 fL Normal 6.2-12.0 [facility] Comment on above: Order Comment: 306-2 Performed By: #### L 100.0500, L500.2500 ####[facility] [address] [place], [address] Platelets (Bld) [#/Vol] 305 10*3/uL Normal 150-450 [facility] Comment on above: Order Comment: 306-2 Performed By: #### L 100.0500, L500.2500 ####[facility] [address] [place], [address] RBC (Bld) [#/Vol] 4.91 10*6/uL Normal 4.6-6.2 [facility] Comment on above: Order Comment: 306-2 Performed By: #### L 100.0500, L500.2500 ####[facility] [address] [place], [address] RDW SD 49.8 fl High 35.1-43.9 [facility] Comment on above: Order Comment: 306-2 Performed By: #### L 100.0500, L500.2500 ####[facility] [address] [place], [address] WBC (Bld) [#/Vol] 7.4 10*3/uL Normal 4.4-11.0 [facility] Comment on above: Order Comment: 306-2 Performed By: #### L 100.0500, L500.2500 ####[facility] [address] [place], [address] Basic Metabolic Profile (BMP )on 04-11-2024 BUN Normal 7-18 [facility] Comment on above: Result Comment: Canc elled via OM: Order cancelled - Patient discharged Performed By: #### L 500.2500, L100.0100 ####[facility] [address] [place], [address] BUN/CRE Normal 10-20 [facility] Comment on above: Result Comment: Canc elled via OM: Order cancelled - Patient discharged Performed By: #### L 500.2500, L100.0100 ####[facility] [address] [place], [address] CA,Total Normal 8.5-10.1 [facility] Comment on above: Result Comment: Canc elled via OM: Order cancelled - Patient discharged Performed By: #### L 500.2500, L100.0100 ####[facility] [address] [place], [address] CL Normal 98-107 [facility] Comment on above: Result Comment: Canc elled via OM: Order cancelled - Patient discharged Performed By: #### L 500.2500, L100.0100 ####[facility] [address] [place], [address] CO2 Normal 21.0-32.0 [facility] Comment on above: Result Comment: Canc elled via OM: Order cancelled - Patient discharged Performed By: #### L 500.2500, L100.0100 ####[facility] [address] [place], [address] CREAT,SERUM Normal 0.70-1.30 [facility] Comment on above: Result Comment: Canc elled via OM: Order cancelled - Patient discharged Performed By: #### L 500.2500, L100.0100 ####[facility] [address] [place], [address] EST GFR Normal >60 [facility] Comment on above: Result Comment: Canc elled via OM: Order cancelled - Patient discharged Performed By: #### L 500.2500, L100.0100 ####[facility] [address] [place], [address] EST GFR - AA Normal >60 [facility] Comment on above: Result Comment: Canc elled via OM: Order cancelled - Patient discharged Performed By: #### L 500.2500, L100.0100 ####[facility] [address] [place], [address] GAP Normal 5-15 [facility] Comment on above: Result Comment: Canc elled via OM: Order cancelled - Patient discharged Performed By: #### L 500.2500, L100.0100 ####[facility] [address] [place], [address] GLU Normal 74-106 [facility] Comment on above: Result Comment: Canc elled via OM: Order cancelled - Patient discharged Performed By: #### L 500.2500, L100.0100 ####[facility] [address] [place], [address] Potassium Normal 3.5-5.1 [facility] Comment on above: Result Comment: Canc elled via OM: Order cancelled - Patient discharged Performed By: #### L 500.2500, L100.0100 ####[facility] [address] [place], [address] Basic Metabolic Profile (BMP) Normal 136-145 [facility] Comment on above: Result Comment: Canc elled via OM: Order cancelled - Patient discharged Performed By: #### L 500.2500, L100.0100 ####[facility] [address] [place], [address] CBC W/Diff, Automatedon 10-2 Absolute Neut Normal 2.0-7.7 [facility] Comment on above: Result Comment: Canc elled via OM: Order cancelled - Patient discharged Performed By: #### L 500.2500, L100.0100 ####[facility] [address] [place], [address] HCT Normal 40-54 [facility] Comment on above: Result Comment: Canc elled via OM: Order cancelled - Patient discharged Performed By: #### L 500.2500, L100.0100 ####[facility] [address] [place], [address] HGB Normal 13.0-16.5 [facility] Comment on above: Result Comment: Canc elled via OM: Order cancelled - Patient discharged Performed By: #### L 500.2500, L100.0100 ####[facility] [address] [place], [address] MCH Normal 27.0-32.0 [facility] Comment on above: Result Comment: Canc elled via OM: Order cancelled - Patient discharged Performed By: #### L 500.2500, L100.0100 ####[facility] [address] [place], [address] MCHC Normal 32-36 [facility] Comment on above: Result Comment: Canc elled via OM: Order cancelled - Patient discharged Performed By: #### L 500.2500, L100.0100 ####[facility] [address] [place], [address] MCV Normal 80-94 [facility] Comment on above: Result Comment: Canc elled via OM: Order cancelled - Patient discharged Performed By: #### L 500.2500, L100.0100 ####[facility] [address] [place], [address] NEUT% Normal 47-70 [facility] Comment on above: Result Comment: Canc elled via OM: Order cancelled - Patient discharged Performed By: #### L 500.2500, L100.0100 ####[facility] [address] [place], [address] PLT Normal 150-450 [facility] Comment on above: Result Comment: Canc elled via OM: Order cancelled - Patient discharged Performed By: #### L 500.2500, L100.0100 ####[facility] [address] [place], [address] RBC Normal 4.6-6.2 [facility] Comment on above: Result Comment: Canc elled via OM: Order cancelled - Patient discharged Performed By: #### L 500.2500, L100.0100 ####[facility] [address] [place], [address] RDW CV Normal 11.6-14.6 [facility] Comment on above: Result Comment: Canc elled via OM: Order cancelled - Patient discharged Performed By: #### L 500.2500, L100.0100 ####[facility] [address] [place], [address] RDW SD Normal 35.1-43.9 [facility] Comment on above: Result Comment: Canc elled via OM: Order cancelled - Patient discharged Performed By: #### L 500.2500, L100.0100 ####[facility] [address] [place], [address] WBC Normal 4.4-11.0 [facility] Comment on above: Result Comment: Canc elled via OM: Order cancelled - Patient discharged Performed By: #### L 500.2500, L100.0100 ####[facility] [address] [place], [address] Basic Metabolic Profile (BMP )on 04-10-2024 BUN/CRE 16.1 RATIO Normal -20 [facility] Comment on above: Performed By: #### L 500.2500, L100.0100 ####[facility] [address] [place], [address] CA,Total 9.4 mg/dL Normal 8.5-10.1 [facility] Comment on above: Performed By: #### L 500.2500, L100.0100 ####[facility] [address] [place], [address] Chloride [Moles/Vol] 106 mmol/L Normal 98-107 [facility] Comment on above: Performed By: #### L 500.2500, L100.0100 ####[facility] [address] [place], [address] CO2 [Moles/Vol] 25.0 mmol/L Normal 21.0-32.0 [facility] Comment on above: Performed By: #### L 500.2500, L100.0100 ####[facility] [address] [place], [address] Creatinine [Mass/Vol] 1.74 mg/dL High 0.70-1.30 [facility] Comment on above: Result Comment: The validity of the calculated GFR GFRAA in patients over70 years has not been determined. Clinical correlation isessential. Performed By: #### L 500.2500, L100.0100 ####[facility] [address] [place], [address] ECRCL 33.61 ml/min Normal [facility] Comment on above: Performed By: #### L 500.2500, L100.0100 ####[facility] [address] [place], [address] EST GFR - AA 50 mL/min Low >60 [facility] Comment on above: Result Comment: Afri can Slovak GFR Calc Performed By: #### L 500.2500, L100.0100 ####[facility] [address] [place], [address] GAP 5 Normal 5-15 [facility] Comment on above: Performed By: #### L 500.2500, L100.0100 ####[facility] [address] [place], [address] GFR/1.73 sq M.predicted among non-blacks MDRD (S/P/Bld) [Vol rate/Area] 41 mL/min/{1.73_m2} Low >60 [facility] Comment on above: Result Comment: Non- GFR Calc Performed By: #### L 500.2500, L100.0100 ####[facility] [address] [place], [address] Glucose [Mass/Vol] 90 mg/dL Normal 74-106 [facility] Comment on above: Performed By: #### L 500.2500, L100.0100 ####[facility] [address] [place], [address] Potassium [Moles/Vol] 4.1 mmol/L Normal 3.5-5.1 [facility] Comment on above: Performed By: #### L 500.2500, L100.0100 ####[facility] [address] [place], [address] Sodium [Moles/Vol] 136 mmol/L Normal 136-145 [facility] Comment on above: Performed By: #### L 500.2500, L100.0100 ####[facility] [address] [place], [address] Urea nitrogen [Mass/Vol] 28 mg/dL High 7-18 [facility] Comment on above: Performed By: #### L 500.2500, L100.0100 ####[facility] [address] [place], [address] CBC W/Diff, Automatedon 10-2 Absolute Lymph 1.36 X10 3/uL Normal 0.83-4.51 [facility] Comment on above: Performed By: #### L 500.2500, L100.0100 ####[facility] [address] [place], [address] Absolute Neut 5.5 X10 3/uL Normal 2.0-7.7 [facility] Comment on above: Performed By: #### L 500.2500, L100.0100 ####[facility] [address] [place], [address] Basophils/100 WBC (Bld) 0.7 % Normal 0-1 [facility] Comment on above: Performed By: #### L 500.2500, L100.0100 ####[facility] [address] [place], [address] Eosinophils/100 WBC (Bld) 0.3 % Normal 0-5 [facility] Comment on above: Performed By: #### L 500.2500, L100.0100 ####[facility] [address] [place], [address] Erythrocyte distribution width (RBC) [Ratio] 13.4 % Normal 11.6-14.6 [facility] Comment on above: Performed By: #### L 500.2500, L100.0100 ####[facility] [address] [place], [address] Hematocrit (Bld) [Volume fraction] 45.6 % Normal 40-54 [facility] Comment on above: Performed By: #### L 500.2500, L100.0100 ####[facility] [address] [place], [address] Hemoglobin (Bld) [Mass/Vol] 15.4 g/dL Normal 13.0-16.5 [facility] Comment on above: Performed By: #### L 500.2500, L100.0100 ####[facility] [address] [place], [address] IG% 0.800 Normal 0.0-0.9 [facility] Comment on above: Result Comment: IG% - Immature Granulocytes (promyelocytes, myelocytes andmetamyelocytes) > 1% indicates that a LEFT SHIFT is Present. Performed By: #### L 500.2500, L100.0100 ####[facility] [address] [place], [address] Lymphocytes/100 WBC (Bld) 18.0 % Low 19-41 [facility] Comment on above: Performed By: #### L 500.2500, L100.0100 ####[facility] [address] [place], [address] MCH (RBC) [Entitic mass] 33.6 pg High 27.0-32.0 [facility] Comment on above: Performed By: #### L 500.2500, L100.0100 ####[facility] [address] [place], [address] MCHC (RBC) [Mass/Vol] 33.8 g/dL Normal 32-36 [facility] Comment on above: Performed By: #### L 500.2500, L100.0100 ####[facility] [address] [place], [address] MCV (RBC) [Entitic vol] 99.3 fL High 80-94 [facility] Comment on above: Performed By: #### L 500.2500, L100.0100 ####[facility] [address] [place], [address] Monocytes/100 WBC (Bld) 7.0 % Normal 0-10 [facility] Comment on above: Performed By: #### L 500.2500, L100.0100 ####[facility] [address] [place], [address] Neutrophils/100 WBC (Bld) 73.2 % High 47-70 [facility] Comment on above: Performed By: #### L 500.2500, L100.0100 ####[facility] [address] [place], [address] Nucleated RBC (Bld) [#/Vol] 0 10*3/uL Normal 0-5 [facility] Comment on above: Performed By: #### L 500.2500, L100.0100 ####[facility] [address] [place], [address] Platelet mean volume (Bld) [Entitic vol] 10.1 fL Normal 6.2-12.0 [facility] Comment on above: Performed By: #### L 500.2500, L100.0100 ####[facility] [address] [place], [address] Platelets (Bld) [#/Vol] 296 10*3/uL Normal 150-450 [facility] Comment on above: Performed By: #### L 500.2500, L100.0100 ####[facility] [address] [place], [address] RBC (Bld) [#/Vol] 4.59 10*6/uL Low 4.6-6.2 [facility] Comment on above: Performed By: #### L 500.2500, L100.0100 ####[facility] [address] [place], [address] RDW SD 48.8 fl High 35.1-43.9 [facility] Comment on above: Performed By: #### L 500.2500, L100.0100 ####[facility] [address] [place], [address] WBC (Bld) [#/Vol] 7.6 10*3/uL Normal 4.4-11.0 [facility] Comment on above: Performed By: #### L 500.2500, L100.0100 ####[facility] [address] [place], [address] Basic Metabolic Profile (BMP )on 04-09-2024 BUN/CRE 15.3 RATIO Normal 10-20 [facility] Comment on above: Performed By: #### L 500.2500, L100.0100 ####[facility] [address] [place], [address] CA,Total 9.8 mg/dL Normal 8.5-10.1 [facility] Comment on above: Performed By: #### L 500.2500, L100.0100 ####[facility] [address] [place], [address] Chloride [Moles/Vol] 107 mmol/L Normal 98-107 [facility] Comment on above: Performed By: #### L 500.2500, L100.0100 ####[facility] [address] [place], [address] CO2 [Moles/Vol] 26.0 mmol/L Normal 21.0-32.0 [facility] Comment on above: Performed By: #### L 500.2500, L100.0100 ####[facility] [address] [place], [address] Creatinine [Mass/Vol] 1.44 mg/dL High 0.70-1.30 [facility] Comment on above: Result Comment: The validity of the calculated GFR GFRAA in patients over70 years has not been determined. Clinical correlation isessential. Performed By: #### L 500.2500, L100.0100 ####[facility] [address] [place], [address] ECRCL 40.61 ml/min Normal [facility] Comment on above: Performed By: #### L 500.2500, L100.0100 ####[facility] [address] [place], [address] EST GFR - AA 62 mL/min Normal >60 [facility] Comment on above: Result Comment: Afri can Slovak GFR Calc Performed By: #### L 500.2500, L100.0100 ####[facility] [address] [place], [address] GAP 4 Low 5-15 [facility] Comment on above: Performed By: #### L 500.2500, L100.0100 ####[facility] [address] [place], [address] GFR/1.73 sq M.predicted among non-blacks MDRD (S/P/Bld) [Vol rate/Area] 51 mL/min/{1.73_m2} Low >60 [facility] Comment on above: Result Comment: Non- GFR Calc Performed By: #### L 500.2500, L100.0100 ####[facility] [address] [place], [address] Glucose [Mass/Vol] 97 mg/dL Normal 74-106 [facility] Comment on above: Performed By: #### L 500.2500, L100.0100 ####[facility] [address] [place], [address] Potassium [Moles/Vol] 4.0 mmol/L Normal 3.5-5.1 [facility] Comment on above: Result Comment: Mode rate Hemolysis, Result may be falsely increased. Performed By: #### L 500.2500, L100.0100 ####[facility] [address] [place], [address] Sodium [Moles/Vol] 137 mmol/L Normal 136-145 [facility] Comment on above: Performed By: #### L 500.2500, L100.0100 ####[facility] [address] [place], [address] Urea nitrogen [Mass/Vol] 22 mg/dL High 7-18 [facility] Comment on above: Performed By: #### L 500.2500, L100.0100 ####[facility] [address] [place], [address] CBC W/Diff, Automatedon 10-2 Absolute Lymph 1.04 X10 3/uL Normal 0.83-4.51 [facility] Comment on above: Performed By: #### L 500.2500, L100.0100 ####[facility] [address] [place], [address] Absolute Neut 5.9 X10 3/uL Normal 2.0-7.7 [facility] Comment on above: Performed By: #### L 500.2500, L100.0100 ####[facility] [address] [place], [address] Basophils/100 WBC (Bld) 0.7 % Normal 0-1 [facility] Comment on above: Performed By: #### L 500.2500, L100.0100 ####[facility] [address] [place], [address] Eosinophils/100 WBC (Bld) 0.9 % Normal 0-5 [facility] Comment on above: Performed By: #### L 500.2500, L100.0100 ####[facility] [address] [place], [address] Erythrocyte distribution width (RBC) [Ratio] 13.2 % Normal 11.6-14.6 [facility] Comment on above: Performed By: #### L 500.2500, L100.0100 ####[facility] [address] [place], [address] Hematocrit (Bld) [Volume fraction] 45.7 % Normal 40-54 [facility] Comment on above: Performed By: #### L 500.2500, L100.0100 ####[facility] [address] [place], [address] Hemoglobin (Bld) [Mass/Vol] 15.0 g/dL Normal 13.0-16.5 [facility] Comment on above: Performed By: #### L 500.2500, L100.0100 ####[facility] [address] [place], [address] IG% 0.500 Normal 0.0-0.9 [facility] Comment on above: Result Comment: IG% - Immature Granulocytes (promyelocytes, myelocytes andmetamyelocytes) > 1% indicates that a LEFT SHIFT is Present. Performed By: #### L 500.2500, L100.0100 ####[facility] [address] [place], [address] Lymphocytes/100 WBC (Bld) 13.6 % Low 19-41 [facility] Comment on above: Performed By: #### L 500.2500, L100.0100 ####[facility] [address] [place], [address] MCH (RBC) [Entitic mass] 32.5 pg High 27.0-32.0 [facility] Comment on above: Performed By: #### L 500.2500, L100.0100 ####[facility] [address] [place], [address] MCHC (RBC) [Mass/Vol] 32.8 g/dL Normal 32-36 [facility] Comment on above: Performed By: #### L 500.2500, L100.0100 ####[facility] [address] [place], [address] MCV (RBC) [Entitic vol] 98.9 fL High 80-94 [facility] Comment on above: Performed By: #### L 500.2500, L100.0100 ####[facility] [address] [place], [address] Monocytes/100 WBC (Bld) 7.2 % Normal 0-10 [facility] Comment on above: Performed By: #### L 500.2500, L100.0100 ####[facility] [address] [place], [address] Neutrophils/100 WBC (Bld) 77.1 % High 47-70 [facility] Comment on above: Performed By: #### L 500.2500, L100.0100 ####[facility] [address] [place], [address] Nucleated RBC (Bld) [#/Vol] 0 10*3/uL Normal 0-5 [facility] Comment on above: Performed By: #### L 500.2500, L100.0100 ####[facility] [address] [place], [address] Platelet mean volume (Bld) [Entitic vol] 10.0 fL Normal 6.2-12.0 [facility] Comment on above: Performed By: #### L 500.2500, L100.0100 ####[facility] [address] [place], [address] Platelets (Bld) [#/Vol] 309 10*3/uL Normal 150-450 [facility] Comment on above: Performed By: #### L 500.2500, L100.0100 ####[facility] [address] [place], [address] RBC (Bld) [#/Vol] 4.62 10*6/uL Normal 4.6-6.2 [facility] Comment on above: Performed By: #### L 500.2500, L100.0100 ####[facility] [address] [place], [address] RDW SD 48.0 fl High 35.1-43.9 [facility] Comment on above: Performed By: #### L 500.2500, L100.0100 ####[facility] [address] [place], [address] WBC (Bld) [#/Vol] 7.7 10*3/uL Normal 4.4-11.0 [facility] Comment on above: Performed By: #### L 500.2500, L100.0100 ####[facility] [address] [place], [address] Basic Metabolic Profile (BMP )on 04-08-2024 BUN/CRE 10.4 RATIO Normal 10-20 [facility] Comment on above: Performed By: #### L 500.2500, L100.0100 ####[facility] [address] [place], [address] CA,Total 9.6 mg/dL Normal 8.5-10.1 [facility] Comment on above: Performed By: #### L 500.2500, L100.0100 ####[facility] [address] [place], [address] Chloride [Moles/Vol] 108 mmol/L High 98-107 [facility] Comment on above: Performed By: #### L 500.2500, L100.0100 ####[facility] [address] [place], [address] CO2 [Moles/Vol] 24.0 mmol/L Normal 21.0-32.0 [facility] Comment on above: Performed By: #### L 500.2500, L100.0100 ####[facility] [address] [place], [address] Creatinine [Mass/Vol] 1.15 mg/dL Normal 0.70-1.30 [facility] Comment on above: Result Comment: The validity of the calculated GFR GFRAA in patients over70 years has not been determined. Clinical correlation isessential. Performed By: #### L 500.2500, L100.0100 ####[facility] [address] [place], [address] ECRCL 50.86 ml/min Normal [facility] Comment on above: Performed By: #### L 500.2500, L100.0100 ####[facility] [address] [place], [address] EST GFR - AA 80 mL/min Normal >60 [facility] Comment on above: Result Comment: Afri can Slovak GFR Calc Performed By: #### L 500.2500, L100.0100 ####[facility] [address] [place], [address] GAP 9 Normal 5-15 [facility] Comment on above: Performed By: #### L 500.2500, L100.0100 ####[facility] [address] [place], [address] GFR/1.73 sq M.predicted among non-blacks MDRD (S/P/Bld) [Vol rate/Area] 66 mL/min/{1.73_m2} Normal >60 [facility] Comment on above: Result Comment: Non- GFR Calc Performed By: #### L 500.2500, L100.0100 ####[facility] [address] [place], [address] Glucose [Mass/Vol] 92 mg/dL Normal 74-106 [facility] Comment on above: Performed By: #### L 500.2500, L100.0100 ####[facility] [address] [place], [address] Potassium [Moles/Vol] 3.9 mmol/L Normal 3.5-5.1 [facility] Comment on above: Result Comment: Slig ht Hemolysis, Result may be falsely increased. Performed By: #### L 500.2500, L100.0100 ####[facility] [address] [place], [address] Sodium [Moles/Vol] 142 mmol/L Normal 136-145 [facility] Comment on above: Performed By: #### L 500.2500, L100.0100 ####[facility] [address] [place], [address] Urea nitrogen [Mass/Vol] 12 mg/dL Normal 7-18 [facility] Comment on above: Performed By: #### L 500.2500, L100.0100 ####[facility] [address] [place], [address] CBC W/Diff, Automatedon 10-2 Absolute Lymph 1.20 X10 3/uL Normal 0.83-4.51 [facility] Comment on above: Performed By: #### L 500.2500, L100.0100 ####[facility] [address] [place], [address] Absolute Neut 4.1 X10 3/uL Normal 2.0-7.7 [facility] Comment on above: Performed By: #### L 500.2500, L100.0100 ####[facility] [address] [place], [address] Basophils/100 WBC (Bld) 1.3 % High 0-1 [facility] Comment on above: Performed By: #### L 500.2500, L100.0100 ####[facility] [address] [place], [address] Eosinophils/100 WBC (Bld) 2.0 % Normal 0-5 [facility] Comment on above: Performed By: #### L 500.2500, L100.0100 ####[facility] [address] [place], [address] Erythrocyte distribution width (RBC) [Ratio] 13.0 % Normal 11.6-14.6 [facility] Comment on above: Performed By: #### L 500.2500, L100.0100 ####[facility] [address] [place], [address] Hematocrit (Bld) [Volume fraction] 44.0 % Normal 40-54 [facility] Comment on above: Performed By: #### L 500.2500, L100.0100 ####[facility] [address] [place], [address] Hemoglobin (Bld) [Mass/Vol] 14.6 g/dL Normal 13.0-16.5 [facility] Comment on above: Performed By: #### L 500.2500, L100.0100 ####[facility] [address] [place], [address] IG% 0.300 Normal 0.0-0.9 [facility] Comment on above: Result Comment: IG% - Immature Granulocytes (promyelocytes, myelocytes andmetamyelocytes) > 1% indicates that a LEFT SHIFT is Present. Performed By: #### L 500.2500, L100.0100 ####[facility] [address] [place], [address] Lymphocytes/100 WBC (Bld) 20.0 % Normal 19-41 [facility] Comment on above: Performed By: #### L 500.2500, L100.0100 ####[facility] [address] [place], [address] MCH (RBC) [Entitic mass] 32.7 pg High 27.0-32.0 [facility] Comment on above: Performed By: #### L 500.2500, L100.0100 ####[facility] [address] [place], [address] MCHC (RBC) [Mass/Vol] 33.2 g/dL Normal 32-36 [facility] Comment on above: Performed By: #### L 500.2500, L100.0100 ####[facility] [address] [place], [address] MCV (RBC) [Entitic vol] 98.4 fL High 80-94 [facility] Comment on above: Performed By: #### L 500.2500, L100.0100 ####[facility] [address] [place], [address] Monocytes/100 WBC (Bld) 8.7 % Normal 0-10 [facility] Comment on above: Performed By: #### L 500.2500, L100.0100 ####[facility] [address] [place], [address] Neutrophils/100 WBC (Bld) 67.7 % Normal 47-70 [facility] Comment on above: Performed By: #### L 500.2500, L100.0100 ####[facility] [address] [place], [address] Nucleated RBC (Bld) [#/Vol] 0 10*3/uL Normal 0-5 [facility] Comment on above: Performed By: #### L 500.2500, L100.0100 ####[facility] [address] [place], [address] Platelet mean volume (Bld) [Entitic vol] 9.9 fL Normal 6.2-12.0 [facility] Comment on above: Performed By: #### L 500.2500, L100.0100 ####[facility] [address] [place], [address] Platelets (Bld) [#/Vol] 270 10*3/uL Normal 150-450 [facility] Comment on above: Performed By: #### L 500.2500, L100.0100 ####[facility] [address] [place], [address] RBC (Bld) [#/Vol] 4.47 10*6/uL Low 4.6-6.2 [facility] Comment on above: Performed By: #### L 500.2500, L100.0100 ####[facility] [address] [place], [address] RDW SD 47.0 fl High 35.1-43.9 [facility] Comment on above: Performed By: #### L 500.2500, L100.0100 ####[facility] [address] [place], [address] WBC (Bld) [#/Vol] 6.0 10*3/uL Normal 4.4-11.0 [facility] Comment on above: Performed By: #### L 500.2500, L100.0100 ####[facility] [address] [place], [address] Vitamin D,25 Hydroxyon 04-08 Vitamin D 25-OH 35.4 ng/mL Normal [facility] Comment on above: Result Comment: Teri min D 25(OH) Status Range Deficiency <20 ng/mL (50nmol/L) Insufficiency 20 - 30 ng/mL (50 - 75 nmol/L) Sufficiency 30 - 100 ng/mL (75 - 250 nmol/L) Toxicity >100 ng/mL (>250 nmol/L) Performed By: #### L 506.1000 ####[facility] [address] [place], [address] Basic Metabolic Profile (BMP )on 04-07-2024 BUN/CRE 16.2 RATIO Normal 04-07 [facility] Comment on above: Performed By: #### L 100.0100, L501.9520, L500.2500 ####[facility] [address] [place], [address] CA,Total 9.1 mg/dL Normal 8.5-10.1 [facility] Comment on above: Performed By: #### L 100.0100, L501.9520, L500.2500 ####[facility] [address] [place], [address] Chloride [Moles/Vol] 106 mmol/L Normal 98-107 [facility] Comment on above: Performed By: #### L 100.0100, L501.9520, L500.2500 ####[facility] [address] [place], [address] CO2 [Moles/Vol] 25.0 mmol/L Normal 21.0-32.0 [facility] Comment on above: Performed By: #### L 100.0100, L501.9520, L500.2500 ####[facility] [address] [place], [address] Creatinine [Mass/Vol] 1.05 mg/dL Normal 0.70-1.30 [facility] Comment on above: Result Comment: The validity of the calculated GFR GFRAA in patients over70 years has not been determined. Clinical correlation isessential. Performed By: #### L 100.0100, L501.9520, L500.2500 ####[facility] [address] [place], [address] ECRCL 55.70 ml/min Normal [facility] Comment on above: Performed By: #### L 100.0100, L501.9520, L500.2500 ####[facility] [address] [place], [address] EST GFR - AA 89 mL/min Normal >60 [facility] Comment on above: Result Comment: Afri can Slovak GFR Calc Performed By: #### L 100.0100, L501.9520, L500.2500 ####[facility] [address] [place], [address] GAP 4 Low 5-15 [facility] Comment on above: Performed By: #### L 100.0100, L501.9520, L500.2500 ####[facility] [address] [place], [address] GFR/1.73 sq M.predicted among non-blacks MDRD (S/P/Bld) [Vol rate/Area] 73 mL/min/{1.73_m2} Normal >60 [facility] Comment on above: Result Comment: Non- GFR Calc Performed By: #### L 100.0100, L501.9520, L500.2500 ####[facility] [address] [place], [address] Glucose [Mass/Vol] 95 mg/dL Normal 74-106 [facility] Comment on above: Performed By: #### L 100.0100, L501.9520, L500.2500 ####[facility] [address] [place], [address] Potassium [Moles/Vol] 3.6 mmol/L Normal 3.5-5.1 [facility] Comment on above: Performed By: #### L 100.0100, L501.9520, L500.2500 ####[facility] [address] [place], [address] Sodium [Moles/Vol] 135 mmol/L Low 136-145 [facility] Comment on above: Performed By: #### L 100.0100, L501.9520, L500.2500 ####[facility] [address] [place], [address] Urea nitrogen [Mass/Vol] 17 mg/dL Normal 7-18 [facility] Comment on above: Performed By: #### L 100.0100, L501.9520, L500.2500 ####[facility] [address] [place], [address] CBC W/Diff, Automatedon 10-2 0-2024 Absolute Lymph 1.44 X10 3/uL Normal 0.83-4.51 [facility] Comment on above: Performed By: #### L 100.0100, L501.9520, L500.2500 ####[facility] [address] [place], [address] Absolute Neut 3.8 X10 3/uL Normal 2.0-7.7 [facility] Comment on above: Performed By: #### L 100.0100, L501.9520, L500.2500 ####[facility] [address] [place], [address] Basophils/100 WBC (Bld) 1.5 % High 0-1 [facility] Comment on above: Performed By: #### L 100.0100, L501.9520, L500.2500 ####[facility] [address] [place], [address] Eosinophils/100 WBC (Bld) 1.5 % Normal 0-5 [facility] Comment on above: Performed By: #### L 100.0100, L501.9520, L500.2500 ####[facility] [address] [place], [address] Erythrocyte distribution width (RBC) [Ratio] 12.8 % Normal 11.6-14.6 [facility] Comment on above: Performed By: #### L 100.0100, L501.9520, L500.2500 ####[facility] [address] [place], [address] Hematocrit (Bld) [Volume fraction] 42.4 % Normal 40-54 [facility] Comment on above: Performed By: #### L 100.0100, L501.9520, L500.2500 ####[facility] [address] [place], [address] Hemoglobin (Bld) [Mass/Vol] 14.2 g/dL Normal 13.0-16.5 [facility] Comment on above: Performed By: #### L 100.0100, L501.9520, L500.2500 ####[facility] [address] [place], [address] IG% 0.300 Normal 0.0-0.9 [facility] Comment on above: Result Comment: IG% - Immature Granulocytes (promyelocytes, myelocytes andmetamyelocytes) > 1% indicates that a LEFT SHIFT is Present. Performed By: #### L 100.0100, L501.9520, L500.2500 ####[facility] [address] [place], [address] Lymphocytes/100 WBC (Bld) 24.4 % Normal 19-41 [facility] Comment on above: Performed By: #### L 100.0100, L501.9520, L500.2500 ####[facility] [address] [place], [address] MCH (RBC) [Entitic mass] 32.8 pg High 27.0-32.0 [facility] Comment on above: Performed By: #### L 100.0100, L501.9520, L500.2500 ####[facility] [address] [place], [address] MCHC (RBC) [Mass/Vol] 33.5 g/dL Normal 32-36 [facility] Comment on above: Performed By: #### L 100.0100, L501.9520, L500.2500 ####[facility] [address] [place], [address] MCV (RBC) [Entitic vol] 97.9 fL High 80-94 [facility] Comment on above: Performed By: #### L 100.0100, L501.9520, L500.2500 ####[facility] [address] [place], [address] Monocytes/100 WBC (Bld) 7.8 % Normal 0-10 [facility] Comment on above: Performed By: #### L 100.0100, L501.9520, L500.2500 ####[facility] [address] [place], [address] Neutrophils/100 WBC (Bld) 64.5 % Normal 47-70 [facility] Comment on above: Performed By: #### L 100.0100, L501.9520, L500.2500 ####[facility] [address] [place], [address] Nucleated RBC (Bld) [#/Vol] 0 10*3/uL Normal 0-5 [facility] Comment on above: Performed By: #### L 100.0100, L501.9520, L500.2500 ####[facility] [address] [place], [address] Platelet mean volume (Bld) [Entitic vol] 9.8 fL Normal 6.2-12.0 [facility] Comment on above: Performed By: #### L 100.0100, L501.9520, L500.2500 ####[facility] [address] [place], [address] Platelets (Bld) [#/Vol] 292 10*3/uL Normal 150-450 [facility] Comment on above: Performed By: #### L 100.0100, L501.9520, L500.2500 ####[facility] [address] [place], [address] RBC (Bld) [#/Vol] 4.33 10*6/uL Low 4.6-6.2 [facility] Comment on above: Performed By: #### L 100.0100, L501.9520, L500.2500 ####[facility] [address] [place], [address] RDW SD 46.1 fl High 35.1-43.9 [facility] Comment on above: Performed By: #### L 100.0100, L501.9520, L500.2500 ####[facility] [address] [place], [address] WBC (Bld) [#/Vol] 5.9 10*3/uL Normal 4.4-11.0 [facility] Comment on above: Performed By: #### L 100.0100, L501.9520, L500.2500 ####[facility] [address] [place], [address] Thyroid Stim Hormone (TSH)on 04-07-2024 TSH 1.730 uIU/mL Normal 0.358-3.740 [facility] Comment on above: Performed By: #### L 100.0100, L501.9520, L500.2500 ####[facility] [address] [place], [address] 12 Lead EKGon 04-06-2024 12 Lead EKG Normal [facility] Basic Metabolic Profile (BMP )on 04-06-2024 BUN/CRE 16.2 RATIO Normal 04-07 [facility] Comment on above: Order Comment: 'TROP ' Serial specimen #1, #2 or #3: 1 Performed By: #### L 500.2500, L100.0100, L501.4020 ####[facility] [address] [place], [address] CA,Total 10.0 mg/dL Normal 8.5-10.1 [facility] Comment on above: Order Comment: 'TROP ' Serial specimen #1, #2 or #3: 1 Performed By: #### L 500.2500, L100.0100, L501.4020 ####[facility] [address] [place], [address] Chloride [Moles/Vol] 104 mmol/L Normal 98-107 [facility] Comment on above: Order Comment: 'TROP ' Serial specimen #1, #2 or #3: 1 Performed By: #### L 500.2500, L100.0100, L501.4020 ####[facility] [address] [place], [address] CO2 [Moles/Vol] 31.0 mmol/L Normal 21.0-32.0 [facility] Comment on above: Order Comment: 'TROP ' Serial specimen #1, #2 or #3: 1 Performed By: #### L 500.2500, L100.0100, L501.4020 ####[facility] [address] [place], [address] Creatinine [Mass/Vol] 1.36 mg/dL High 0.70-1.30 [facility] Comment on above: Order Comment: 'TROP ' Serial specimen #1, #2 or #3: 1 Result Comment: The validity of the calculated GFR GFRAA in patients over70 years has not been determined. Clinical correlation isessential. Performed By: #### L 500.2500, L100.0100, L501.4020 ####[facility] [address] [place], [address] ECRCL 42.94 ml/min Normal [facility] Comment on above: Order Comment: 'TROP ' Serial specimen #1, #2 or #3: 1 Performed By: #### L 500.2500, L100.0100, L501.4020 ####[facility] [address] [place], [address] EST GFR - AA 66 mL/min Normal >60 [facility] Comment on above: Order Comment: 'TROP ' Serial specimen #1, #2 or #3: 1 Result Comment: Afri can Slovak GFR Calc Performed By: #### L 500.2500, L100.0100, L501.4020 ####[facility] [address] [place], [address] GAP 3 Low 5-15 [facility] Comment on above: Order Comment: 'TROP ' Serial specimen #1, #2 or #3: 1 Performed By: #### L 500.2500, L100.0100, L501.4020 ####[facility] [address] [place], [address] GFR/1.73 sq M.predicted among non-blacks MDRD (S/P/Bld) [Vol rate/Area] 54 mL/min/{1.73_m2} Low >60 [facility] Comment on above: Order Comment: 'TROP ' Serial specimen #1, #2 or #3: 1 Result Comment: Non- GFR Calc Performed By: #### L 500.2500, L100.0100, L501.4020 ####[facility] [address] [place], [address] Glucose [Mass/Vol] 99 mg/dL Normal 74-106 [facility] Comment on above: Order Comment: 'TROP ' Serial specimen #1, #2 or #3: 1 Performed By: #### L 500.2500, L100.0100, L501.4020 ####[facility] [address] [place], [address] Potassium [Moles/Vol] 4.1 mmol/L Normal 3.5-5.1 [facility] Comment on above: Order Comment: 'TROP ' Serial specimen #1, #2 or #3: 1 Performed By: #### L 500.2500, L100.0100, L501.4020 ####[facility] [address] [place], [address] Sodium [Moles/Vol] 138 mmol/L Normal 136-145 [facility] Comment on above: Order Comment: 'TROP ' Serial specimen #1, #2 or #3: 1 Performed By: #### L 500.2500, L100.0100, L501.4020 ####[facility] [address] [place], [address] Urea nitrogen [Mass/Vol] 22 mg/dL High 7-18 [facility] Comment on above: Order Comment: 'TROP ' Serial specimen #1, #2 or #3: 1 Performed By: #### L 500.2500, L100.0100, L501.4020 ####[facility] [address] [place], [address] Brain/Head without Contrasto n 04-06-2024 Brain/Head without Contrast Normal [facility] CBC W/Diff, Automatedon - Absolute Lymph 1.59 X10 3/uL Normal 0.83-4.51 [facility] Comment on above: Performed By: #### L 500.2500, L100.0100, L501.4020 ####[facility] [address] [place], [address] Absolute Neut 4.3 X10 3/uL Normal 2.0-7.7 [facility] Comment on above: Performed By: #### L 500.2500, L100.0100, L501.4020 ####[facility] [address] [place], [address] Basophils/100 WBC (Bld) 1.1 % High 0-1 [facility] Comment on above: Performed By: #### L 500.2500, L100.0100, L501.4020 ####[facility] [address] [place], [address] Eosinophils/100 WBC (Bld) 0.9 % Normal 0-5 [facility] Comment on above: Performed By: #### L 500.2500, L100.0100, L501.4020 ####[facility] [address] [place], [address] Erythrocyte distribution width (RBC) [Ratio] 13.0 % Normal 11.6-14.6 [facility] Comment on above: Performed By: #### L 500.2500, L100.0100, L501.4020 ####[facility] [address] [place], [address] Hematocrit (Bld) [Volume fraction] 49.3 % Normal 40-54 [facility] Comment on above: Performed By: #### L 500.2500, L100.0100, L501.4020 ####[facility] [address] [place], [address] Hemoglobin (Bld) [Mass/Vol] 17.0 g/dL High 13.0-16.5 [facility] Comment on above: Performed By: #### L 500.2500, L100.0100, L501.4020 ####[facility] [address] [place], [address] IG% 0.500 Normal 0.0-0.9 [facility] Comment on above: Result Comment: IG% - Immature Granulocytes (promyelocytes, myelocytes andmetamyelocytes) > 1% indicates that a LEFT SHIFT is Present. Performed By: #### L 500.2500, L100.0100, L501.4020 ####[facility] [address] [place], [address] Lymphocytes/100 WBC (Bld) 24.3 % Normal 19-41 [facility] Comment on above: Performed By: #### L 500.2500, L100.0100, L501.4020 ####[facility] [address] [place], [address] MCH (RBC) [Entitic mass] 33.5 pg High 27.0-32.0 [facility] Comment on above: Performed By: #### L 500.2500, L100.0100, L501.4020 ####[facility] [address] [place], [address] MCHC (RBC) [Mass/Vol] 34.5 g/dL Normal 32-36 [facility] Comment on above: Performed By: #### L 500.2500, L100.0100, L501.4020 ####[facility] [address] [place], [address] MCV (RBC) [Entitic vol] 97.0 fL High 80-94 [facility] Comment on above: Performed By: #### L 500.2500, L100.0100, L501.4020 ####[facility] [address] [place], [address] Monocytes/100 WBC (Bld) 6.9 % Normal 0-10 [facility] Comment on above: Performed By: #### L 500.2500, L100.0100, L501.4020 ####[facility] [address] [place], [address] Neutrophils/100 WBC (Bld) 66.3 % Normal 47-70 [facility] Comment on above: Performed By: #### L 500.2500, L100.0100, L501.4020 ####[facility] [address] [place], [address] Nucleated RBC (Bld) [#/Vol] 0 10*3/uL Normal 0-5 [facility] Comment on above: Performed By: #### L 500.2500, L100.0100, L501.4020 ####[facility] [id number] [place], [address] Platelet mean volume (Bld) [Entitic vol] 10.2 fL Normal 6.2-12.0 [facility] Comment on above: Performed By: #### L 500.2500, L100.0100, L501.4020 ####[facility] [address] [place], [address] Platelets (Bld) [#/Vol] 329 10*3/uL Normal 150-450 [facility] Comment on above: Performed By: #### L 500.2500, L100.0100, L501.4020 ####[facility] [address] [place], [address] RBC (Bld) [#/Vol] 5.08 10*6/uL Normal 4.6-6.2 [facility] Comment on above: Performed By: #### L 500.2500, L100.0100, L501.4020 ####[facility] [address] [place], [address] RDW SD 46.7 fl High 35.1-43.9 [facility] Comment on above: Performed By: #### L 500.2500, L100.0100, L501.4020 ####[facility] [address] [place], [address] WBC (Bld) [#/Vol] 6.5 10*3/uL Normal 4.4-11.0 [facility] Comment on above: Performed By: #### L 500.2500, L100.0100, L501.4020 ####[facility] [address] [place], [address] Chest 1 View (Portable)on Chest 1 View (Portable) Normal [facility] Echo Completeon 04-06-2024 Echo Complete Normal [facility] Emergency Department Summary on 04-06-2024 Emergency Department Summary Normal [facility] H AND P Exam - Hospitaliston 04-06-2024 H&P Exam - Hospitalist Normal [facility] L501.4020on 04-06-2024 TROPONIN-I HS 18 pg/mL Normal 3.0-78.0 [facility] Comment on above: Order Comment: 'TROP ' Serial specimen #1, #2 or #3: 2 Result Comment: Plea se Note: New Test Units and Gender Specific Reference Ranges. For more information see Policy Stat Procedure [place] High Sensitivity Troponin (TNIH) and attachments. Performed By: #### L 501.4020 ####[facility] [address] [place], [address] TROPONIN-I HS 9 pg/mL Normal 3.0-78.0 [facility] Comment on above: Order Comment: 'TROP ' Serial specimen #1, #2 or #3: 1 Result Comment: Plea se Note: New Test Units and Gender Specific Reference Ranges. For more information see Policy Stat Procedure [place] High Sensitivity Troponin (TNIH) and attachments. Performed By: #### L 500.2500, L100.0100, L501.4020 ####[facility] [address] [place], [address] Lumbar Spine 2 or 3 Viewson 04-06-2024 Lumbar Spine 2 or 3 Views Normal [facility] Magnesiumon 04-06-2024 Magnesium [Mass/Vol] 2.3 mg/dL Normal 1.6-2.6 [facility] Comment on above: Performed By: #### L 501.5200 ####[facility] [address] [place], [address] Spine Cervical without Contr ason 04-06-2024 Spine Cervical without Contras Normal [facility] Thoracic Spine 2 Viewson Thoracic Spine 2 Views Normal [facility] Urinalysis, Completeon 04-06 EPI,SQUAMOUS 5-10 SEEN Normal 0-5 [facility] Comment on above: Order Comment: CLEAN CATCH Performed By: #### L 400.0001 ####[facility] [address] [place], [address] BACTERIA 0 SEEN Normal None Seen [facility] Comment on above: Order Comment: CLEAN CATCH Performed By: #### L 400.0001 ####[facility] [address] [place], [address] Mucus Ql (Urine sed) 0 SEEN Normal [facility] Comment on above: Order Comment: CLEAN CATCH Performed By: #### L 400.0001 ####[facility] [address] [place], [address] RBC 0 SEEN Normal 0-5 [facility] Comment on above: Order Comment: CLEAN CATCH Performed By: #### L 400.0001 ####[facility] [address] [place], [address] WBC 0 SEEN Normal 0-5 [facility] Comment on above: Order Comment: CLEAN CATCH Performed By: #### L 400.0001 ####[facility] [address] [place], [place], [id number] UA DIP, URINE (POC)on 2023 BILIRUBIN UA (POCT) Negative Negative [facility] CLARITY UA (POCT) Cloudy [facility] COLOR UA (POCT) Yellow [facility] GLUCOSE UA (POCT) Negative Negative mg/dL [facility] Hemoglobin Ql (U) Negative [facility] Interpretation and review of laboratory results Abnormal [facility] KETONE UA (POCT) Trace Negative mg/dL [facility] LEUKOCYTES UA (POCT) Trace [facility]normal [facility] NITRITE UA (POCT) Positive Abnormal Negative [facility] PH UA (POCT) 6.0 4.5 - 8.0 [facility] Protein Ql (U) 100 mg/dL Abnormal Negative [facility] SPECIFIC GRAVITY UA (POCT) 1.025 1.005 - 1.030 [facility] UROBILINOGEN UA (POCT) 0.2 Malaika l E.U./dL [facility] Location:[facility] [place], [address] [facility], [place], [address] [facility] POINT OF CARE [facility] Alcohol, Blood (Medical)-Ser umon 02-20-2024 SERUM ETOH < 3.0 Normal [facility] Comment on above: Result Comment: The serum:whole blood ethanol ratio is approximately 1.14and varies slightly with hematocrit.Medical Alcohol reference interval and critical value innon-tolerant individuals; 50 - 100 Impairment 100 Intoxication 100 - 250 Severe Poisoning 250 - 400 Deep/possible fatal coma Performed By: #### L 500.2500, L501.2450, L100.0500, L501.5425, L501.9100 ####[facility] [address] [place], [place], [id number] Basic Metabolic Profile (BMP )on 02-20-2024 BUN/CRE 13.3 RATIO Normal 10-20 [facility] Comment on above: Order Comment: 1Y Performed By: #### L 500.2500, L501.2450, L100.0500, L501.5425, L501.9100 ####[facility] [address] [place], [address] CA,Total 10.7 mg/dL High 8.5-10.1 [facility] Comment on above: Order Comment: 1Y Performed By: #### L 500.2500, L501.2450, L100.0500, L501.5425, L501.9100 ####[facility] [address] [place], [address] Chloride [Moles/Vol] 98 mmol/L Normal 98-107 [facility] Comment on above: Order Comment: 1Y Performed By: #### L 500.2500, L501.2450, L100.0500, L501.5425, L501.9100 ####[facility] [address] [place], [address] CO2 [Moles/Vol] 30.0 mmol/L Normal 21.0-32.0 [facility] Comment on above: Order Comment: 1Y Performed By: #### L 500.2500, L501.2450, L100.0500, L501.5425, L501.9100 ####[facility] [address] [place], [address] Creatinine [Mass/Vol] 1.35 mg/dL High 0.70-1.30 [facility] Comment on above: Order Comment: 1Y Result Comment: The validity of the calculated GFR GFRAA in patients over70 years has not been determined. Clinical correlation isessential. Performed By: #### L 500.2500, L501.2450, L100.0500, L501.5425, L501.9100 ####[facility] [address] [place], [address] EST GFR - AA 66 mL/min Normal >60 [facility] Comment on above: Order Comment: 1Y Result Comment: Afri can [place] GFR Calc Performed By: #### L 500.2500, L501.2450, L100.0500, L501.5425, L501.9100 ####[facility] [address] [place], [address] GAP 9 Normal 5-15 [facility] Comment on above: Order Comment: 1Y Performed By: #### L 500.2500, L501.2450, L100.0500, L501.5425, L501.9100 ####[facility] [address] [place], [address] GFR/1.73 sq M.predicted among non-blacks MDRD (S/P/Bld) [Vol rate/Area] 55 mL/min/{1.73_m2} Low >60 [facility] Comment on above: Order Comment: 1Y Result Comment: Non- GFR Calc Performed By: #### L 500.2500, L501.2450, L100.0500, L501.5425, L501.9100 ####[facility] [address] [place], [address] Glucose [Mass/Vol] 84 mg/dL Normal 74-106 [facility] Comment on above: Order Comment: 1Y Performed By: #### L 500.2500, L501.2450, L100.0500, L501.5425, L501.9100 ####[facility] [address] [place], [address] Potassium [Moles/Vol] 4.3 mmol/L Normal 3.5-5.1 [facility] Comment on above: Order Comment: 1Y Performed By: #### L 500.2500, L501.2450, L100.0500, L501.5425, L501.9100 ####[facility] [address] [place], [address] Sodium [Moles/Vol] 137 mmol/L Normal 136-145 [facility] Comment on above: Order Comment: 1Y Performed By: #### L 500.2500, L501.2450, L100.0500, L501.5425, L501.9100 ####[facility] [address] [place], [address] Urea nitrogen [Mass/Vol] 18 mg/dL Normal 7-18 [facility] Comment on above: Order Comment: 1Y Performed By: #### L 500.2500, L501.2450, L100.0500, L501.5425, L501.9100 ####[facility] [address] [place], [address] Bedside Glucoseon 02-20-2024 FINGERSTICK GLU 83 mg/dL Normal 74-106 [facility] Comment on above: Result Comment: RONA LO OF PATIENT CARE PER NURSING PROTOCOL Performed By: #### L 501.080 ####[facility] [address] [place], [address] Brain/Head without Contrasto n 02-20-2024 Brain/Head without Contrast Normal [facility] CBC-Complete Blood Cnt No Di ffon 02-20-2024 Erythrocyte distribution width (RBC) [Ratio] 13.2 % Normal 11.6-14.6 [facility] Comment on above: Performed By: #### L 500.2500, L501.2450, L100.0500, L501.5425, L501.9100 ####[facility] [address] [place], [address] Hematocrit (Bld) [Volume fraction] 51.8 % Normal 40-54 [facility] Comment on above: Performed By: #### L 500.2500, L501.2450, L100.0500, L501.5425, L501.9100 ####[facility] [address] [place], [address] Hemoglobin (Bld) [Mass/Vol] 17.1 g/dL High 13.0-16.5 [facility] Comment on above: Performed By: #### L 500.2500, L501.2450, L100.0500, L501.5425, L501.9100 ####[facility] [address] [place], [address] MCH (RBC) [Entitic mass] 32.0 pg Normal 27.0-32.0 [facility] Comment on above: Performed By: #### L 500.2500, L501.2450, L100.0500, L501.5425, L501.9100 ####[facility] [address] [place], [address] MCHC (RBC) [Mass/Vol] 33.0 g/dL Normal 32-36 [facility] Comment on above: Performed By: #### L 500.2500, L501.2450, L100.0500, L501.5425, L501.9100 ####[facility] [address] [place], [address] MCV (RBC) [Entitic vol] 96.8 fL High 80-94 [facility] Comment on above: Performed By: #### L 500.2500, L501.2450, L100.0500, L501.5425, L501.9100 ####[facility] [address] [place], [address] Platelet mean volume (Bld) [Entitic vol] 9.8 fL Normal 6.2-12.0 [facility] Comment on above: Performed By: #### L 500.2500, L501.2450, L100.0500, L501.5425, L501.9100 ####[facility] [address] [place], [address] Platelets (Bld) [#/Vol] 307 10*3/uL Normal 150-450 [facility] Comment on above: Performed By: #### L 500.2500, L501.2450, L100.0500, L501.5425, L501.9100 ####[facility] [address] [place], [address] RBC (Bld) [#/Vol] 5.35 10*6/uL Normal 4.6-6.2 [facility] Comment on above: Performed By: #### L 500.2500, L501.2450, L100.0500, L501.5425, L501.9100 ####[facility] [address] [place], [address] RDW SD 47.1 fl High 35.1-43.9 [facility] Comment on above: Performed By: #### L 500.2500, L501.2450, L100.0500, L501.5425, L501.9100 ####[facility] [address] [place], [address] WBC (Bld) [#/Vol] 6.6 10*3/uL Normal 4.4-11.0 [facility] Comment on above: Performed By: #### L 500.2500, L501.2450, L100.0500, L501.5425, L501.9100 ####[facility] [address] [place], [address] Chest 1 View (Portable)on Chest 1 View (Portable) Normal [facility] Emergency Department Summary on 02-20-2024 Emergency Department Summary Normal [facility] Femur Min 2 Viewson 02-20-20 24 Femur Min 2 Views Normal [facility] Knee 1 or 2 Viewson 02-20-20 24 Knee 1 or 2 Views Normal [facility] L501.4020on 02-20-2024 TROPONIN-I HS 18 pg/mL Normal 3.0-78.0 [facility] Comment on above: Result Comment: Plea se Note: New Test Units and Gender Specific Reference Ranges. For more information see Policy Stat Procedure [place] High Sensitivity Troponin (TNIH) and attachments. Performed By: #### L 501.4020 ####[facility] [address] [place], [address] L501.5425on 02-20-2024 TROPONIN-I HS 14 pg/mL Normal 3.0-78.0 [facility] Comment on above: Order Comment: 1Y Result Comment: Brant gregorio Note: New Test Units and Gender Specific Reference Ranges. For more information see Policy Stat Procedure [place] High Sensitivity Troponin (TNIH) and attachments. Performed By: #### L 500.2500, L501.2450, L100.0500, L501.5425, L501.9100 ####[facility] [address] [place], [address] Lipaseon 02-20-2024 Lipase [Catalytic activity/Vol] 23 U/L Normal 13-75 [facility] Comment on above: Order Comment: 1Y Result Comment: Pleluis gregorio note:LIPASE revised reference range effective 22.New Lipase methodology. Expected to produce lower valuesthan the previous assay method.NEW Reference Range: 13 - 75 U/L Performed By: #### L 500.2500, L501.2450, L100.0500, L501.5425, L501.9100 ####[facility] [address] [place], [address] Spine Cervical without Contr ason 02-20-2024 Spine Cervical without Contras Normal [facility] Spine Thoracic without Contr ason 02-20-2024 Spine Thoracic without Contras Normal [facility] Urinalysis, Completeon 02-19 EPI,RENAL 0-5 SEEN Normal 0-5 [facility] Comment on above: Order Comment: COLLE CTOR TO SPECIFY Performed By: #### L 400.0001 ####[facility] [address] [place], [address] EPI,SQUAMOUS 0-5 SEEN Normal 0-5 [facility] Comment on above: Order Comment: COLLE CTOR TO SPECIFY Performed By: #### L 400.0001 ####[facility] [address] [place], [address] BACTERIA 3+ /hpf Normal None Seen [facility] Comment on above: Order Comment: MEHREEN CTOR TO SPECIFY Performed By: #### L 400.0001 ####[facility] [address] [place], [address] WBC 0-5 SEEN Normal 0-5 [facility] Comment on above: Order Comment: MEHREEN CTOR TO SPECIFY Performed By: #### L 400.0001 ####[facility] [address] [place], [address] Mucus Ql (Urine sed) 0 SEEN Normal [facility] Comment on above: Order Comment: MEHREEN CTOR TO SPECIFY Performed By: #### L 400.0001 ####[facility] [address] [place], [address] RBC 0 SEEN Normal 0-5 [facility] Comment on above: Order Comment: MEHREEN CTOR TO SPECIFY Performed By: #### L 400.0001 ####[facility] [address] [place], [address] Urine Drug Screen (VISTA)on 02-20-2024 AMPHETAMINES Negative Normal <1000 ng/mL [facility] Comment on above: Performed By: #### L 505.5000 ####[facility] [address] [place], [address] BARBITIURATES Negative Normal < 200 ng/mL [facility] Comment on above: Performed By: #### L 505.5000 ####[facility] [address] [place], [address] BENZODIAZIPINE Negative Normal < 200 ng/mL [facility] Comment on above: Performed By: #### L 505.5000 ####[facility] [address] [place], [address] COCAINE Negative Normal < 300 ng/mL [facility] Comment on above: Performed By: #### L 505.5000 ####[facility] [address] [place], [address] ECSTACY Negative Normal < 500 ng/mL [facility] Comment on above: Performed By: #### L 505.5000 ####[facility] [address] [place], [address] METHADONE Negative Normal < 300 ng/mL [facility] Comment on above: Performed By: #### L 505.5000 ####[facility] [address] [place], [address] OPIATES Negative Normal < 300 ng/mL [facility] Comment on above: Performed By: #### L 505.5000 ####[facility] [address] [place], [address] PCP Negative Normal < 25 ng/mL [facility] Comment on above: Performed By: #### L 505.5000 ####[facility] [address] [place], [address] THC Negative Normal < 50 ng/mL [facility] Comment on above: Performed By: #### L 505.5000 ####[facility] [address] [place], [address] VISTA UDS PH 4 Normal [facility] Comment on above: Performed By: #### L 505.5000 ####[facility] [address] [place], [address] Emergency Department Summary on 01-03-2024 Emergency Department Summary Normal [facility] Tibia Fibula 2 Viewson 01-02 Tibia Fibula 2 Views Normal [facility] Absolute lymphocyte countOrd ered By: Brody Maynard on 07-31-2023 Lymphocytes Auto (Unsp spec) [#/Vol] 0.39 10*3/uL 0.83-4.51 [facility] Automated lymphocyte count a s percentage of total leukocytesOrdered By: Brody Maynard on 07-31-2023 Lymphocytes/100 WBC Auto (Unsp spec) 7.1 % 19-41 [facility] Basophil percentageOrdered B y: Brody Maynard on 07-31-2023 Basophil percentage 12.6 g/dL 13.0-16.5 [facility] Basophil percentage 113 mg/dL 74-106 [facility] Basophil percentage 139 mmol/L 136-145 [facility] Basophil percentage 4.0 mmol/L 3.5-5.1 [facility] Basophil percentage 102 mmol/L 98-107 [facility] Basophils (Bld) [#/Vol] 5.5 10*3/uL 4.4-11.0 [facility] Basophils (Bld) [#/Vol] 4.7 10*3/uL 2.0-7.7 [facility] Basophils/100 WBC (Bld) 85.0 % 47-70 [facility] Basophils/100 WBC (Bld) 7.1 % 0-10 [facility] Basophils/100 WBC (Bld) 0.0 % 0-5 [facility] Basophils/100 WBC (Bld) 0.4 % 0-1 [facility] Determination of erythrocyte mean corpuscular volume (MCV)Ordered By: Brody Maynard on 07-31-2023 MCV (RBC) [Entitic vol] 98.4 fL 80-94 [facility] Erythrocyte distribution wid th ratioOrdered By: Brody Maynard on 07-31-2023 Erythrocyte distribution width (RBC) [Ratio] 13.2 % 11.6-14.6 [facility] Erythrocyte distribution wid th standard deviationOrdered By: Brody Maynard on 07-31-2023 Erythrocyte distribution width (RBC) [Entitic vol] 47.2 fL 35.1-43.9 [facility] Hematocrit Auto (Bld) [Volum e fraction]Ordered By: Brody Maynard on 07-31-2023 Hematocrit (Bld) [Volume fraction] 37.9 % 40-54 [facility] Immature granulocytes/100 WB C Auto (Bld)Ordered By: Brody Maynard on 07-31-2023 Immature granulocytes/100 WBC (Bld) 0.400 % 0.0-0.9 [facility] No Panel InformationOrdered By: Brody Maynard on 07-31-2023 32.7 pg 27.0-32.0 [facility] 33.2 g/dL 32-36 [facility] 284 K/mm3 150-450 [facility] 10.1 fl 6.2-12.0 [facility] 0 % 0-5 [facility] 77 mL/min >60 [facility] 93 mL/min >60 [facility] 60.90 ml/min [facility] 22.8 RATIO 10-20 [facility] 29.0 mmol/L 21.0-32.0 [facility] RBC Auto (Bld) [#/Vol]Ordere d By: Brody Maynard on 07-31-2023 RBC (Bld) [#/Vol] 3.85 10*6/uL 4.6-6.2 [facility] Serum or plasma calcium luis urement (mass/volume)Ordered By: Brody Maynard on 07-31-2023 Calcium [Mass/Vol] 8.6 mg/dL 8.5-10.1 [facility] Serum or plasma creatinine m easurement (mass/volume)Ordered By: Brody Maynard on 07-31-2023 Creatinine [Mass/Vol] 1.01 mg/dL 0.70-1.30 [facility] Serum or plasma urea nitroge n measurement (mass/volume)Ordered By: Brody Maynard on 07-31-2023 Urea nitrogen [Mass/Vol] 23 mg/dL 7-18 [facility] Thin prep Papanicolaou smear with manual screeningOrdered By: Brody Maynard on 07-31-2023 Thin prep Papanicolaou smear with manual screening 8 5-15 [facility] Absolute lymphocyte countOrd ered By: Андрей Ng on 07-30-2023 Lymphocytes Auto (Unsp spec) [#/Vol] 0.60 10*3/uL 0.83-4.51 [facility] Automated lymphocyte count a s percentage of total leukocytesOrdered By: Андрей Ng on 07-30-2023 Lymphocytes/100 WBC Auto (Unsp spec) 10.9 % 19-41 [facility] Base excessOrdered By: ED NH OVIDER on 07-30-2023 Base excess Calc (BldV) [Moles/Vol] 2 mmol/L -1.0-3.5 [facility] Basophil percentageOrdered B y: Андрей Ng on 07-30-2023 Basophil percentage 0 SEEN /hpf 0-5 [facility] Basophil percentage 13.3 g/dL 13.0-16.5 [facility] Basophil percentage 114 mg/dL 74-106 [facility] Basophil percentage 138 mmol/L 136-145 [facility] Basophil percentage 4.2 mmol/L 3.5-5.1 [facility] Basophil percentage 102 mmol/L 98-107 [facility] Basophils (Bld) [#/Vol] 5.5 10*3/uL 4.4-11.0 [facility] Basophils (Bld) [#/Vol] 4.2 10*3/uL 2.0-7.7 [facility] Basophils/100 WBC (Bld) 76.5 % 47-70 [facility] Basophils/100 WBC (Bld) 10.7 % 0-10 [facility] Basophils/100 WBC (Bld) 0.5 % 0-5 [facility] Basophils/100 WBC (Bld) 0.9 % 0-1 [facility] Bilirubin Test strip Ql (U)O rdered By: Андрей Ng on 07-30-2023 Bilirubin Ql (U) Negative Negative [facility] CO2 (BldV) [Moles/Vol]Ordere d By: ED PROVIDER on 07-30-2023 CO2 [Moles/Vol] 29 mmol/L 23-33 [facility] Determination of erythrocyte mean corpuscular volume (MCV)Ordered By: Андрей Ng on 07-30-2023 MCV (RBC) [Entitic vol] 99.3 fL 80-94 [facility] Erythrocyte distribution wid th ratioOrdered By: Андрей Ng on 07-30-2023 Erythrocyte distribution width (RBC) [Ratio] 13.2 % 11.6-14.6 [facility] Erythrocyte distribution wid th standard deviationOrdered By: Андрей Ng on 07-30-2023 Erythrocyte distribution width (RBC) [Entitic vol] 48.3 fL 35.1-43.9 [facility] Hematocrit Auto (Bld) [Volum e fraction]Ordered By: Андрей Ng on 07-30-2023 Hematocrit (Bld) [Volume fraction] 40.4 % 40-54 [facility] Immature granulocytes/100 WB C Auto (Bld)Ordered By: Андрей Ng on 07-30-2023 Immature granulocytes/100 WBC (Bld) 0.500 % 0.0-0.9 [facility] Ketones Test strip Ql (U)Ord ered By: Андрей Ng on 07-30-2023 Ketones Ql (U) Negative Negative [facility] Mucus LM Ql (Urine sed)Order ed By: Андрей Ng on 07-30-2023 Mucus Ql (Urine sed) 0 SEEN /hpf [facility] Nitrite Test strip Ql (U)Ord ered By: Андрей Ng on 07-30-2023 Nitrite Ql (U) Negative Negative [facility] No Panel InformationOrdered By: Андрей Ng on 07-30-2023 0 SEEN /hpf 0-5 [facility] Influenzae A [facility] 32.7 pg 27.0-32.0 [facility] 32.9 g/dL 32-36 [facility] 262 K/mm3 150-450 [facility] 9.4 fl 6.2-12.0 [facility] 0 % 0-5 [facility] 67 mL/min >60 [facility] 81 mL/min >60 [facility] 55.00 ml/min [facility] 22.8 RATIO 10-20 [facility] 15 pg/mL 3.0-78.0 [facility] 29.0 mmol/L 21.0-32.0 [facility] 218.8 pg/mL 0-100 [facility] No Panel InformationOrdered By: ED PROVIDER on 07-30-2023 LASHAE [facility] Not entered [facility] Cannula [facility] 3.0 [facility] 28 mmol/L 22-26 [facility] 69 % 50-70 [facility] PCO2 venousOrdered By: ED NH MARGIEER on 07-30-2023 CO2 (BldV) [Partial pressure] 48.6 mm[Hg] 41-51 [facility] PO2 venousOrdered By: ED PRO VIDER on 07-30-2023 Oxygen (BldV) [Partial pressure] 38 mm[Hg] 25-40 [facility] Protein Test strip Ql (U)Ord ered By: Андрей Ng on 07-30-2023 Protein Ql (U) 30 mg/dl Negative [facility] RBC Auto (Bld) [#/Vol]Ordere d By: Андрей Ng on 07-30-2023 RBC (Bld) [#/Vol] 4.07 10*6/uL 4.6-6.2 [place] [facility] Serum or plasma calcium luis urement (mass/volume)Ordered By: Андрей Ng on 07-30-2023 Calcium [Mass/Vol] 9.2 mg/dL 8.5-10.1 [facility] Serum or plasma creatinine m easurement (mass/volume)Ordered By: Андрей Ng on 07-30-2023 Creatinine [Mass/Vol] 1.14 mg/dL 0.70-1.30 [place] [facility] Serum or plasma urea nitroge n measurement (mass/volume)Ordered By: Андрей Ng on 07-30-2023 Urea nitrogen [Mass/Vol] 26 mg/dL 7-18 [facility] Squamous epithelial cells de tection in urine sediment by light microscopyOrdered By: Андрей Ng on 07-30-2023 Epithelial cells.squamous LM Ql (Urine sed) 0 SEEN /hpf 0-5 [facility] Thin prep Papanicolaou smear with manual screeningOrdered By: Андрей Ng on 07-30-2023 Thin prep Papanicolaou smear with manual screening 7 5-15 [facility] Urine blood detectionOrdered By: Андрей Ng on 07-30-2023 RBC Ql (U) 10 /ul Negative [facility] Urine clarityOrdered By: Italia Ng on 07-30-2023 Clarity (U) Clear Clear [facility] Urine color determinationOrd ered By: Андрей Ng on 07-30-2023 Color (U) Yellow Yellow [facility] Urine glucose detectionOrder ed By: Андрей Ng on 07-30-2023 Glucose Ql (U) Normal mg/dl Normal [facility] Urine leukocyte esterase det ection by dipstickOrdered By: Андрей Ng on 07-30-2023 Leukocyte esterase Test strip Ql (U) Negative Negative [facility] Urine pHOrdered By: Андрей garland on 07-30-2023 pH (U) 7.0 [pH] 5.0 - 8.0 [facility] Urine sediment bacteria coun t by microscopy (number/high power field)Ordered By: Андрей Ng on 07-30-2023 Bacteria LM.HPF (Urine sed) [#/Area] 0 /[HPF] None Seen [facility] Urine specific gravity measu rementOrdered By: Андрей Ng on 07-30-2023 Specific gravity (U) [Rel density] 1.010 1.002-1.030 [facility] Urine urobilinogen measureme ntOrdered By: Андрей Ng on 07-30-2023 Urobilinogen Ql (U) Normal mg/dl Normal [facility] Venous blood pH measurementO rdered By: ED PROVIDER on 07-30-2023 pH (BldV) 7.36 [pH] 7.32-7.42 [facility] Basophil percentageOrdered B y: Андрей Coolye on 07-27-2023 Basophil percentage 12.8 g/dL 13.0-16.5 [facility] Basophil percentage 103 mg/dL 74-106 [facility] Basophil percentage 141 mmol/L 136-145 [facility] Basophil percentage 3.7 mmol/L 3.5-5.1 [facility] Basophil percentage 110 mmol/L 98-107 [facility] Basophils (Bld) [#/Vol] 6.8 10*3/uL 4.4-11.0 [facility] Determination of erythrocyte mean corpuscular volume (MCV)Ordered By: Андрей Cooley on 07-27-2023 MCV (RBC) [Entitic vol] 98.5 fL 80-94 [facility] Erythrocyte distribution wid th ratioOrdered By: Андрей Cooley on 07-27-2023 Erythrocyte distribution width (RBC) [Ratio] 13.1 % 11.6-14.6 [facility] Erythrocyte distribution wid th standard deviationOrdered By: Андрей Cooley on 07-27-2023 Erythrocyte distribution width (RBC) [Entitic vol] 46.7 fL 35.1-43.9 [facility] Hematocrit Auto (Bld) [Volum e fraction]Ordered By: Андрей Cooley on 02-08-2024 Hematocrit (Bld) [Volume fraction] 38.9 % 40-54 [facility] No Panel InformationOrdered By: Андрей Cooley on 07-27-2023 32.4 pg 27.0-32.0 [facility] 32.9 g/dL 32-36 [facility] 246 K/mm3 150-450 [facility] 10.1 fl 6.2-12.0 [facility] 56 mL/min >60 [facility] 68 mL/min >60 [facility] 26.5 RATIO 10-20 [facility] 29.0 mmol/L 21.0-32.0 [facility] RBC Auto (Bld) [#/Vol]Ordere d By: Андрей Cooley on 07-27-2023 RBC (Bld) [#/Vol] 3.95 10*6/uL 4.6-6.2 [facility] Serum or plasma calcium luis urement (mass/volume)Ordered By: Андрей Cooley on 07-27-2023 Calcium [Mass/Vol] 9.5 mg/dL 8.5-10.1 [facility] Serum or plasma creatinine m easurement (mass/volume)Ordered By: Андрей Cooley on 07-27-2023 Creatinine [Mass/Vol] 1.32 mg/dL 0.70-1.30 [facility] Serum or plasma urea nitroge n measurement (mass/volume)Ordered By: Андрей Cooley on 07-27-2023 Urea nitrogen [Mass/Vol] 35 mg/dL 7-18 [facility] Thin prep Papanicolaou smear with manual screeningOrdered By: Андрей Cooley on 07-27-2023 Thin prep Papanicolaou smear with manual screening 2 5-15 [facility] Absolute lymphocyte countOrd ered By: Андрей Cooley on 07-25-2023 Lymphocytes Auto (Unsp spec) [#/Vol] 1.22 10*3/uL 0.83-4.51 [facility] Automated lymphocyte count a s percentage of total leukocytesOrdered By: Андрей Cooley on 07-25-2023 Lymphocytes/100 WBC Auto (Unsp spec) 17.6 % 19-41 [facility] Basophil percentageOrdered B y: Андрей Cooley on 07-25-2023 Basophil percentage 14.3 g/dL 13.0-16.5 [facility] Basophil percentage 126 mg/dL 74-106 [facility] Basophil percentage 138 mmol/L 136-145 [facility] Basophil percentage 3.5 mmol/L 3.5-5.1 [facility] Basophil percentage 105 mmol/L 98-107 [facility] Basophils (Bld) [#/Vol] 6.9 10*3/uL 4.4-11.0 [facility] Basophils (Bld) [#/Vol] 4.9 10*3/uL 2.0-7.7 [facility] Basophils/100 WBC (Bld) 70.5 % 47-70 [facility] Basophils/100 WBC (Bld) 10.0 % 0-10 [facility] Basophils/100 WBC (Bld) 0.7 % 0-5 [facility] Basophils/100 WBC (Bld) 0.9 % 0-1 [facility] Determination of erythrocyte mean corpuscular volume (MCV)Ordered By: Андрей Cooley on 07-25-2023 MCV (RBC) [Entitic vol] 95.2 fL 80-94 [facility] Erythrocyte distribution wid th ratioOrdered By: Андрей Cooley on 07-25-2023 Erythrocyte distribution width (RBC) [Ratio] 12.7 % 11.6-14.6 [facility] Erythrocyte distribution wid th standard deviationOrdered By: Андрей Cooley on 07-25-2023 Erythrocyte distribution width (RBC) [Entitic vol] 44.9 fL 35.1-43.9 [facility] Hematocrit Auto (Bld) [Volum e fraction]Ordered By: Андрей Cooley on 07-25-2023 Hematocrit (Bld) [Volume fraction] 41.9 % 40-54 [facility] Immature granulocytes/100 WB C Auto (Bld)Ordered By: Андрей Cooley on 07-25-2023 Immature granulocytes/100 WBC (Bld) 0.300 % 0.0-0.9 [facility] No Panel InformationOrdered By: Андрей Cooley on 07-25-2023 32.5 pg 27.0-32.0 [facility] 34.1 g/dL 32-36 [facility] 245 K/mm3 150-450 [facility] 9.7 fl 6.2-12.0 [facility] 0 % 0-5 [facility] 62 mL/min >60 [facility] 75 mL/min >60 [facility] 39.28 ml/min [facility] 13.2 RATIO 10-20 [facility] 25.0 mmol/L 21.0-32.0 [facility] RBC Auto (Bld) [#/Vol]Ordere d By: Андрей Cooley on 07-25-2023 RBC (Bld) [#/Vol] 4.40 10*6/uL 4.6-6.2 [facility] Serum or plasma calcium luis urement (mass/volume)Ordered By: Андрей Cooley on 07-25-2023 Calcium [Mass/Vol] 9.3 mg/dL 8.5-10.1 [facility] Serum or plasma creatinine m easurement (mass/volume)Ordered By: Андрей Cooley on 07-25-2023 Creatinine [Mass/Vol] 1.21 mg/dL 0.70-1.30 [facility] Serum or plasma urea nitroge n measurement (mass/volume)Ordered By: Андрей Cooley on 07-25-2023 Urea nitrogen [Mass/Vol] 16 mg/dL 7-18 [facility] Thin prep Papanicolaou smear with manual screeningOrdered By: Андрей Cooley on 07-25-2023 Thin prep Papanicolaou smear with manual screening 8 5-15 [facility] Absolute lymphocyte countOrd ered By: Raul Melchor on 07-24-2023 Lymphocytes Auto (Unsp spec) [#/Vol] 1.14 10*3/uL 0.83-4.51 [facility] Automated lymphocyte count a s percentage of total leukocytesOrdered By: Raul Melchor on 07-24-2023 Lymphocytes/100 WBC Auto (Unsp spec) 16.0 % 19-41 [facility] Basophil percentageOrdered B y: Raul Melchor on 07-24-2023 Basophils/100 WBC (Bld) 1.0 % 0-1 [facility] Chloride [Moles/Vol] 103 mmol/L 98-107 [facility] Eosinophils/100 WBC (Bld) 1.1 % 0-5 [facility] Glucose [Mass/Vol] 134 mg/dL 74-106 [facility] Comment on above: Fasting Glucose resu lt greater than or equal to 126 mg/dL suggests DIABETES MELLITUS per A.D.A. criteria. Hemoglobin (Bld) [Mass/Vol] 16.2 g/dL 13.0-16.5 [facility] Monocytes/100 WBC (Bld) 7.3 % 0-10 [facility] Neutrophils (Bld) [#/Vol] 5.3 10*3/uL 2.0-7.7 [facility] Neutrophils/100 WBC (Bld) 74.0 % 47-70 [facility] Potassium [Moles/Vol] 3.8 mmol/L 3.5-5.1 [facility] Comment on above: Moderate Hemolysis, Result may be falsely increased. Sodium [Moles/Vol] 139 mmol/L 136-145 [facility] WBC (Bld) [#/Vol] 7.1 10*3/uL 4.4-11.0 [facility] Determination of erythrocyte mean corpuscular volume (MCV)Ordered By: Raul Melchor on 07-24-2023 MCV (RBC) [Entitic vol] 94.8 fL 80-94 [facility] Erythrocyte distribution wid th ratioOrdered By: Raul Melchor on 07-24-2023 Erythrocyte distribution width (RBC) [Ratio] 12.8 % 11.6-14.6 [facility] Erythrocyte distribution wid th standard deviationOrdered By: Raul Melchor on 07-24-2023 Erythrocyte distribution width (RBC) [Entitic vol] 44.3 fL 35.1-43.9 [facility] Hematocrit Auto (Bld) [Volum e fraction]Ordered By: Raul Melchor on 07-24-2023 Hematocrit (Bld) [Volume fraction] 47.4 % 40-54 [facility] Immature granulocytes/100 WB C Auto (Bld)Ordered By: Raul Melchor on 07-24-2023 Immature granulocytes/100 WBC (Bld) 0.600 % 0.0-0.9 [facility] Comment on above: IG% - Immature Granu locytes (promyelocytes, myelocytes and metamyelocytes) > 1% indicates that a LEFT SHIFT is Present. Laboratory - Chemistry and C hemistry - challengeOrdered By: Raul Melchor on 07-24-2023 CO2 [Moles/Vol] 28.0 mmol/L 21.0-32.0 [facility] Urea nitrogen/Creatinine [Mass ratio] 14.1 mg/mg 10-20 [facility] Laboratory - Hematology and Cell countsOrdered By: Raul Melchor on 07-24-2023 MCH (RBC) [Entitic mass] 32.4 pg 27.0-32.0 [facility] MCHC (RBC) [Mass/Vol] 34.2 g/dL 32-36 [facility] Nucleated RBC/100 WBC (Bld) [Ratio] 0 % 0-5 [facility] Platelets (Bld) [#/Vol] 285 10*3/uL 150-450 [facility] No Panel InformationOrdered By: Raul Melchor on 07-24-2023 Estimated Creatinine Clearance Calc 48.70 ml/min [facility] Estimated GFR (MDRD) Amer 71 mL/min >60 [facility] Comment on above: GFR Calc Estimated GFR (MDRD) Non-Af Amer 58 mL/min >60 [facility] Comment on above: Non- GFR Calc Platelet mean volume Ye-Ec ker (Bld) [Entitic vol]Ordered By: Raul Melchor on 07-24-2023 Platelet mean volume (Bld) [Entitic vol] 9.8 fL 6.2-12.0 [facility] RBC Auto (Bld) [#/Vol]Ordere d By: Raul Melchor on 07-24-2023 RBC (Bld) [#/Vol] 5.00 10*6/uL 4.6-6.2 [facility] Serum or plasma calcium luis urement (mass/volume)Ordered By: Raul Melchor on 07-24-2023 Calcium [Mass/Vol] 9.8 mg/dL 8.5-10.1 [facility] Serum or plasma creatinine m easurement (mass/volume)Ordered By: Raul Melchor on 07-24-2023 Creatinine [Mass/Vol] 1.28 mg/dL 0.70-1.30 [facility] Comment on above: The validity of the calculated GFR & GFRAA in patients over 70 years has not been determined. Clinical correlation is essential. Serum or plasma urea nitroge n measurement (mass/volume)Ordered By: Raul Melchor on 07-24-2023 Urea nitrogen [Mass/Vol] 18 mg/dL 7-18 [facility] Thin prep Papanicolaou smear with manual screeningOrdered By: Raul Melchor on 07-24-2023 Thin prep Papanicolaou smear with manual screening 8 5-15 [facility] UAon 07-10-2023 Color (U) Yellow Normal [facility] ([place]) Comment on above: Performed By: #### U A #### [address] [address] Glucose (U) [Mass/Vol] Negative Normal Negative [facility] ([place]) Comment on above: Performed By: #### U A #### [address] [address] Ketones Ql (U) Negative Normal Neg-Trace [facility] ([place] Comment on above: Performed By: #### U A #### [address] [address] UA Appear Clear Normal Clear [facility] ([place] Comment on above: Performed By: #### U A #### [address] [address] UA Blood Negative Normal Neg-Trace [facility] ([place] Comment on above: Performed By: #### U A #### [address] [address] UA Leuk Est Negative Normal Negative [facility] ([place] Comment on above: Performed By: #### U A #### [address] [address] UA Nitrite Negative Normal Negative [facility] ([place] Comment on above: Performed By: #### U A #### [address] [address] UA pH 5.5 Normal 5.0 - 8.0 [facility] ([place] Comment on above: Performed By: #### U A #### [address] [address] UA Protein 30 mg/dL Normal Negative [facility] ([place] Comment on above: Performed By: #### U A #### [facility] [address] [place] [address] UA Spec Grav 1.020 Normal 1.006-1.029 [facility] ([place]) Comment on above: Performed By: #### U A #### [facility] [address] [place] [id number] UA Specimen Type Void Normal [facility] ([place] Comment on above: Performed By: #### U A #### [facility] [address] [place] [id number] UA Urobilinogen 0.2 E.U./dL Normal 0.2-1.0 [facility] ([place]) Comment on above: Performed By: #### U A #### [address] [address] Urobilinogen (U) [Mass/Vol] Negative Normal Neg-Trace [facility] ([place] Comment on above: Performed By: #### U A #### [address] [address] Absolute lymphocyte countOrd ered By: Daija Morton on 06-14-2023 Lymphocytes Auto (Unsp spec) [#/Vol] 1.09 10*3/uL 0.83-4.51 [facility] Basophil percentageOrdered B y: Daija Morton on 06-14-2023 Basophil percentage 108 mg/dL 74-106 [facility] Basophil percentage 139 mmol/L 136-145 [facility] Basophil percentage 4.2 mmol/L 3.5-5.1 [facility] Basophil percentage 104 mmol/L 98-107 [facility] Basophils (Bld) [#/Vol] 6.5 10*3/uL 4.4-11.0 [facility] Basophils (Bld) [#/Vol] 4.7 10*3/uL 2.0-7.7 [facility] Basophils/100 WBC (Bld) 1.4 % 0-1 [facility] Basophils/100 WBC (Bld) 72.2 % 47-70 [facility] Basophils/100 WBC (Bld) 2.0 % 0-5 [facility] Chloride [Moles/Vol] 104 mmol/L 98-[address] [facility] Eosinophils/100 WBC (Bld) 2.0 % 0-5 [facility] Glucose [Mass/Vol] 108 mg/dL 74-106 [facility] Comment on above: Fasting Glucose resu lt from 100 to 125 mg/dL suggests IMPAIRED HOMEOSTASIS per A.D.A. criteria. Neutrophils (Bld) [#/Vol] 4.7 10*3/uL 2.0-7.7 [facility] Neutrophils/100 WBC (Bld) 72.2 % 47-70 [facility] Potassium [Moles/Vol] 4.2 mmol/L 3.5-5.1 [facility] Sodium [Moles/Vol] 139 mmol/L 136-145 [facility] WBC (Bld) [#/Vol] 6.5 10*3/uL 4.4-11.0 [facility] Blood erythrocytes count (nu mber/volume)Ordered By: Daija Morton on 06-14-2023 RBC (Bld) [#/Vol] 4.73 10*6/uL 4.6-6.2 [facility] Blood hemoglobin measurement (mass/volume)Ordered By: Daija Morton on 06-14-2023 Hemoglobin (Bld) [Mass/Vol] 15.8 g/dL 13.0-16.5 [facility] Blood lymphocytes/100 leukoc ytesOrdered By: Daija Morton on 06-14-2023 Lymphocytes/100 WBC (Bld) 16.8 % 19-41 [facility] Blood monocytes/100 leukocyt esOrdered By: Daija Morton on 06-14-2023 Monocytes/100 WBC (Bld) 7.1 % 0-10 [facility] Blood platelet mean volumeOr dered By: Daija Morton on 06-14-2023 Platelet mean volume (Bld) [Entitic vol] 9.9 fL 6.2-12.0 [facility] Determination of erythrocyte mean corpuscular volume (MCV)Ordered By: Daija Morton on 06-14-2023 MCV (RBC) [Entitic vol] 96.6 fL 80-94 [facility] Hematocrit Auto (Bld) [Volum e fraction]Ordered By: Daija Morton on 06-14-2023 Hematocrit (Bld) [Volume fraction] 45.7 % 40-54 [facility] Laboratory - Chemistry and C hemistry - challengeOrdered By: Daija Morton on 06-14-2023 CO2 [Moles/Vol] 30.0 mmol/L 21.0-32.0 [facility] Urea nitrogen/Creatinine [Mass ratio] 16.1 mg/mg 10- [facility] Laboratory - Hematology and Cell countsOrdered By: Daija Morton on 06-14-2023 Erythrocyte distribution width (RBC) [Entitic vol] 46.5 fL 35.1-43.9 [facility] Erythrocyte distribution width (RBC) [Ratio] 13.1 % 11.6-14.6 [facility] Immature granulocytes/100 WBC (Bld) 0.500 % 0.0-0.9 [facility] Comment on above: IG% - Immature Granu locytes (promyelocytes, myelocytes and metamyelocytes) > 1% indicates that a LEFT SHIFT is Present. MCH (RBC) [Entitic mass] 33.4 pg 27.0-32.0 [facility] Nucleated RBC/100 WBC (Bld) [Ratio] 0 % 0-5 [facility] MCHC Auto (RBC) [Mass/Vol]Or dered By: Daija Morton on 06-14-2023 MCHC (RBC) [Mass/Vol] 34.6 g/dL 32-36 [facility] No Panel InformationOrdered By: Daija Morton on 06-14-2023 Estimated GFR (MDRD) Amer 73 mL/min >60 [facility] Comment on above: GFR Calc Estimated GFR (MDRD) Non-Af Amer 61 mL/min >60 [facility] Comment on above: Non- GFR Calc 33.4 pg 27.0-32.0 [facility] 13.1 % 11.6-14.6 [facility] 46.5 fl 35.1-43.9 [facility] 0.500 % 0.0-0.9 [facility] 0 % 0-5 [facility] 61 mL/min >60 [facility] 73 mL/min >60 [facility] 16.1 RATIO - [facility] 30.0 mmol/L 21.0-32.0 [facility] Platelets bldOrdered By: Nemesio doug Selene on 06-14-2023 Platelets (Bld) [#/Vol] 285 10*3/uL 150-450 [facility] Serum or plasma calcium luis urement (mass/volume)Ordered By: Daija Morton on 06-14-2023 Calcium [Mass/Vol] 9.8 mg/dL 8.5-10.1 [facility] Serum or plasma creatinine m easurement (mass/volume)Ordered By: Daija oMrton on 06-14-2023 Creatinine [Mass/Vol] 1.24 mg/dL 0.70-1.30 [facility] Comment on above: The validity of the calculated GFR & GFRAA in patients over 70 years has not been determined. Clinical correlation is essential. Serum or plasma urea nitroge n measurement (mass/volume)Ordered By: Daija Morton on 06-14-2023 Urea nitrogen [Mass/Vol] 20 mg/dL 7-18 [facility] Thin prep Papanicolaou smear with manual screeningOrdered By: Daija Morton on 06-14-2023 Thin prep Papanicolaou smear with manual screening 5 5-15 [facility] Basophil percentageOrdered B y: Андрей Cooley on 05-19-2023 Basophil percentage 100 mg/dL 74-106 [facility] Basophil percentage 6.5 g/dL 6.4-8.2 [facility] Basophil percentage 0.30 mg/dL 0.20-1.00 [facility] Basophil percentage 141 mmol/L 136-145 [facility] Basophil percentage 3.6 mmol/L 3.5-5.1 [facility] Basophil percentage 109 mmol/L 98-107 [facility] Basophils (Bld) [#/Vol] 6.2 10*3/uL 4.4-11.0 [facility] Bilirubin [Mass/Vol] 0.30 mg/dL 0.20-1.00 [facility] Comment on above: For patients on eltr ombopag therapy, use of Dimension [place] TBIL is not recommended. Chloride [Moles/Vol] 109 mmol/L 98-107 [facility] Glucose [Mass/Vol] 100 mg/dL 74-106 [facility] Comment on above: Fasting Glucose resu lt from 100 to 125 mg/dL suggests IMPAIRED HOMEOSTASIS per A.D.A. criteria. Potassium [Moles/Vol] 3.6 mmol/L 3.5-5.1 [facility] Protein [Mass/Vol] 6.5 g/dL 6.4-8.2 [facility] Sodium [Moles/Vol] 141 mmol/L 136-145 [facility] WBC (Bld) [#/Vol] 6.2 10*3/uL 4.4-11.0 [facility] Blood erythrocytes count (nu mber/volume)Ordered By: Андрей Cooley on 05-19-2023 RBC (Bld) [#/Vol] 4.24 10*6/uL 4.6-6.2 [facility] Blood hemoglobin measurement (mass/volume)Ordered By: Андрей Cooley on 05-19-2023 Hemoglobin (Bld) [Mass/Vol] 13.8 g/dL 13.0-16.5 [facility] Blood platelet mean volumeOr dered By: Андрей Cooley on 05-19-2023 Platelet mean volume (Bld) [Entitic vol] 9.9 fL 6.2-12.0 [facility] Determination of erythrocyte mean corpuscular volume (MCV)Ordered By: Андрей Cooley on 05-19-2023 MCV (RBC) [Entitic vol] 99.5 fL 80-94 [facility] Hematocrit Auto (Bld) [Volum e fraction]Ordered By: Андрей Cooley on 05-19-2023 Hematocrit (Bld) [Volume fraction] 42.2 % 40-54 [facility] Laboratory - Chemistry and C hemistry - challengeOrdered By: Андрей Cooley on 05-19-2023 ALP [Catalytic activity/Vol] 72 U/L 45-117 [facility] ALT [Catalytic activity/Vol] 33 U/L 16-61 [facility] CO2 [Moles/Vol] 29.0 mmol/L 21.0-32.0 [facility] Globulin (S) [Mass/Vol] 3.1 g/dL 2.2-4.2 [facility] Urea nitrogen/Creatinine [Mass ratio] 18.6 mg/mg 10-20 [facility] - Hematology and Cell countsOrdered By: Андрей Cooley on 05-19-2023 Erythrocyte distribution width (RBC) [Entitic vol] 52.4 fL 35.1-43.9 [facility] Erythrocyte distribution width (RBC) [Ratio] 14.3 % 11.6-14.6 [facility] MCH (RBC) [Entitic mass] 32.5 pg 27.0-32.0 [facility] MCHC Auto (RBC) [Mass/Vol]Or dered By: Андрей Cooley on 05-19-2023 MCHC (RBC) [Mass/Vol] 32.7 g/dL 32-36 [facility] No Panel InformationOrdered By: Андрей Cooley on 05-19-2023 Estimated GFR (MDRD) Amer 78 mL/min >60 [facility] Comment on above: GFR Calc Estimated GFR (MDRD) Non-Af Amer 64 mL/min >60 [facility] Comment on above: Non- GFR Calc 32.5 pg 27.0-32.0 [facility] 14.3 % 11.6-14.6 [facility] 52.4 fl 35.1-43.9 [facility] 64 mL/min >60 [facility] 78 mL/min >60 [facility] 18.6 RATIO 10-20 [facility] 3.1 g/dL 2.2-4.2 [facility] 72 U/L 45-117 [facility] 33 U/L 16-61 [facility] 29.0 mmol/L 21.0-32.0 [facility] Platelets bldOrdered By: Italia Cooley on 05-19-2023 Platelets (Bld) [#/Vol] 284 10*3/uL 150-450 [facility] Serum or plasma albumin luis urement (mass/volume)Ordered By: Андрей Cooley on 05-19-2023 Albumin [Mass/Vol] 3.4 g/dL 3.2-5.0 [facility] Serum or plasma albumin/glob ulin mass ratioOrdered By: Андрей Cooley on 05-19-2023 Albumin/Globulin [Mass ratio] 1.1 {ratio} 0.9-2.4 [facility] Serum or plasma calcium luis urement (mass/volume)Ordered By: Андрей Cooley on 05-19-2023 Calcium [Mass/Vol] 8.7 mg/dL 8.5-10.1 [facility] Serum or plasma creatinine m easurement (mass/volume)Ordered By: Андрей Cooley on 05-19-2023 Creatinine [Mass/Vol] 1.18 mg/dL 0.70-1.30 [facility] Comment on above: The validity of the calculated GFR & GFRAA in patients over 70 years has not been determined. Clinical correlation is essential. Serum or plasma urea nitroge n measurement (mass/volume)Ordered By: Андрей Cooley on 05-19-2023 Urea nitrogen [Mass/Vol] 22 mg/dL 7-18 [facility] Thin prep Papanicolaou smear with manual screeningOrdered By: Андрей Cooley on 05-19-2023 Thin prep Papanicolaou smear with manual screening 17 U/L 15-37 [facility] Thin prep Papanicolaou smear with manual screening 3 5-15 [facility] Basophil percentageOrdered B y: Андрей Cooley on 04-19-2023 Basophil percentage 92 mg/dL 74-106 [facility] Basophil percentage 6.8 g/dL 6.4-8.2 [facility] Basophil percentage 0.20 mg/dL 0.20-1.00 [facility] Basophil percentage 140 mmol/L 136-145 [facility] Basophil percentage 4.0 mmol/L 3.5-5.1 [facility] Basophil percentage 105 mmol/L 98-107 [facility] Basophils (Bld) [#/Vol] 6.2 10*3/uL 4.4-11.0 [facility] Bilirubin [Mass/Vol] 0.20 mg/dL 0.20-1.00 [facility] Comment on above: For patients on eltr ombopag therapy, use of Dimension [place] TBIL is not recommended. Chloride [Moles/Vol] 105 mmol/L 98-107 [facility] Glucose [Mass/Vol] 92 mg/dL 74-106 [facility] Potassium [Moles/Vol] 4.0 mmol/L 3.5-5.1 [facility] Protein [Mass/Vol] 6.8 g/dL 6.4-8.2 [facility] Sodium [Moles/Vol] 140 mmol/L 136-145 [facility] WBC (Bld) [#/Vol] 6.2 10*3/uL 4.4-11.0 [facility] Blood erythrocytes count (nu mber/volume)Ordered By: Андрей Cooley on 04-19-2023 RBC (Bld) [#/Vol] 4.26 10*6/uL 4.6-6.2 [facility] Blood hemoglobin measurement (mass/volume)Ordered By: Андрей Cooley on 04-19-2023 Hemoglobin (Bld) [Mass/Vol] 13.6 g/dL 13.0-16.5 [facility] Blood platelet mean volumeOr dered By: Андрей Cooley on 04-19-2023 Platelet mean volume (Bld) [Entitic vol] 9.7 fL 6.2-12.0 [facility] Determination of erythrocyte mean corpuscular volume (MCV)Ordered By: Андрей Cooley on 04-19-2023 MCV (RBC) [Entitic vol] 99.5 fL 80-94 [facility] Hematocrit Auto (Bld) [Volum e fraction]Ordered By: Андрей Cooley on 04-19-2023 Hematocrit (Bld) [Volume fraction] 42.4 % 40-54 [facility] - Chemistry and C hemistry - challengeOrdered By: Андрей Cooley on 04-19-2023 ALP [Catalytic activity/Vol] 82 U/L 45-117 [facility] ALT [Catalytic activity/Vol] 27 U/L 16-61 [facility] CO2 [Moles/Vol] 29.0 mmol/L 21.0-32.0 [facility] Globulin (S) [Mass/Vol] 3.5 g/dL 2.2-4.2 [facility] Urea nitrogen/Creatinine [Mass ratio] 22.2 mg/mg 10-20 [facility] - Hematology and Cell countsOrdered By: Андрей Cooley on 04-19-2023 Erythrocyte distribution width (RBC) [Entitic vol] 51.8 fL 35.1-43.9 [facility] Erythrocyte distribution width (RBC) [Ratio] 14.4 % 11.6-14.6 [facility] MCH (RBC) [Entitic mass] 31.9 pg 27.0-32.0 [facility] MCHC Auto (RBC) [Mass/Vol]Or dered By: Андрей Cooley on 04-19-2023 MCHC (RBC) [Mass/Vol] 32.1 g/dL 32-36 [facility] No Panel InformationOrdered By: Андрей Cooley on 04-19-2023 Estimated GFR (MDRD) Amer 86 mL/min >60 [facility] Comment on above: GFR Calc Estimated GFR (MDRD) Non-Af Amer 71 mL/min >60 [facility] Comment on above: Non- GFR Calc 31.9 pg 27.0-32.0 [facility] 14.4 % 11.6-14.6 [facility] 51.8 fl 35.1-43.9 [facility] 71 mL/min >60 [facility] 86 mL/min >60 [facility] 22.2 RATIO 10-20 [facility] 3.5 g/dL 2.2-4.2 [facility] 82 U/L 45-117 [facility] 27 U/L 16-61 [facility] 29.0 mmol/L 21.0-32.0 [facility] Platelets bldOrdered By: Italia Cooley on 04-19-2023 Platelets (Bld) [#/Vol] 382 10*3/uL 150-450 [facility] Serum or plasma albumin luis urement (mass/volume)Ordered By: Андрей Cooley on 04-19-2023 Albumin [Mass/Vol] 3.3 g/dL 3.2-5.0 [facility] Serum or plasma albumin/glob ulin mass ratioOrdered By: Андрей Cooley on 04-19-2023 Albumin/Globulin [Mass ratio] 0.9 {ratio} 0.9-2.4 [facility] Serum or plasma calcium luis urement (mass/volume)Ordered By: Андрей Cooley on 04-19-2023 Calcium [Mass/Vol] 9.1 mg/dL 8.5-10.1 [facility] Serum or plasma creatinine m easurement (mass/volume)Ordered By: Андрей Cooley on 04-19-2023 Creatinine [Mass/Vol] 1.08 mg/dL 0.70-1.30 [facility] Comment on above: The validity of the calculated GFR & GFRAA in patients over 70 years has not been determined. Clinical correlation is essential. Serum or plasma urea nitroge n measurement (mass/volume)Ordered By: Андрей Cooley on 04-19-2023 Urea nitrogen [Mass/Vol] 24 mg/dL 7-18 [facility] Thin prep Papanicolaou smear with manual screeningOrdered By: Андрей Cooley on 04-19-2023 Thin prep Papanicolaou smear with manual screening 19 U/L 15-37 [facility] Thin prep Papanicolaou smear with manual screening 6 5-15 [facility] Whole blood hemoglobin A1c/t otal hemoglobin ratio (mass fraction)Ordered By: Андрей Cooley on 04-17-2023 HbA1c (Bld) [Mass fraction] 5.2 % 3.8-5.6 [facility] Comment on above: Normal < 5.7 % Predi abetic 5.7 - 6.4 % Diabetic >or= 6.5 % Please note range changes. Basophil percentageOrdered B y: Андрей Cooley on 04-12-2023 Basophil percentage 92 mg/dL 74-106 [facility] Basophil percentage 6.4 g/dL 6.4-8.2 [facility] Basophil percentage 0.10 mg/dL 0.20-1.00 [facility] Basophil percentage 139 mmol/L 136-145 [facility] Basophil percentage 4.1 mmol/L 3.5-5.1 [facility] Basophil percentage 107 mmol/L 98-107 [facility] Basophils (Bld) [#/Vol] 7.8 10*3/uL 4.4-11.0 [facility] Bilirubin [Mass/Vol] 0.10 mg/dL 0.20-1.00 [facility] Comment on above: For patients on eltr ombopag therapy, use of Dimension [place] TBIL is not recommended. Chloride [Moles/Vol] 107 mmol/L 98-107 [facility] Glucose [Mass/Vol] 92 mg/dL 74-106 [facility] Potassium [Moles/Vol] 4.1 mmol/L 3.5-5.1 [facility] Protein [Mass/Vol] 6.4 g/dL 6.4-8.2 [facility] Sodium [Moles/Vol] 139 mmol/L 136-145 [facility] WBC (Bld) [#/Vol] 7.8 10*3/uL 4.4-11.0 [facility] Blood erythrocytes count (nu mber/volume)Ordered By: Андрей Cooley on 04-12-2023 RBC (Bld) [#/Vol] 4.04 10*6/uL 4.6-6.2 [facility] Blood hemoglobin measurement (mass/volume)Ordered By: Андрей Cooley on 04-12-2023 Hemoglobin (Bld) [Mass/Vol] 13.2 g/dL 13.0-16.5 [facility] Blood platelet mean volumeOr dered By: Андрей Cooley on 04-12-2023 Platelet mean volume (Bld) [Entitic vol] 9.7 fL 6.2-12.0 [facility] Determination of erythrocyte mean corpuscular volume (MCV)Ordered By: Андрей Cooley on 04-12-2023 MCV (RBC) [Entitic vol] 97.5 fL 80-94 [facility] Hematocrit Auto (Bld) [Volum e fraction]Ordered By: Андрей Cooley on 04-12-2023 Hematocrit (Bld) [Volume fraction] 39.4 % 40-54 [facility] - Chemistry and C hemistry - challengeOrdered By: Андрей Cooley on 04-12-2023 ALP [Catalytic activity/Vol] 88 U/L 45-117 [facility] ALT [Catalytic activity/Vol] 32 U/L 16-61 [facility] CO2 [Moles/Vol] 26.0 mmol/L 21.0-32.0 [facility] Globulin (S) [Mass/Vol] 3.4 g/dL 2.2-4.2 [facility] Urea nitrogen/Creatinine [Mass ratio] 20.2 mg/mg 10-20 [facility] - Hematology and Cell countsOrdered By: Андрей Cooley on 04-12-2023 Erythrocyte distribution width (RBC) [Entitic vol] 49.3 fL 35.1-43.9 [facility] Erythrocyte distribution width (RBC) [Ratio] 13.8 % 11.6-14.6 [facility] MCH (RBC) [Entitic mass] 32.7 pg 27.0-32.0 [facility] MCHC Auto (RBC) [Mass/Vol]Or dered By: Андрей Cooley on 04-12-2023 MCHC (RBC) [Mass/Vol] 33.5 g/dL 32-36 [facility] No Panel InformationOrdered By: Андрей Cooley on 04-12-2023 Estimated GFR (MDRD) Amer 77 mL/min >60 [facility] Comment on above: GFR Calc Estimated GFR (MDRD) Non-Af Amer 64 mL/min >60 [facility] Comment on above: Non- GFR Calc 32.7 pg 27.0-32.0 [facility] 13.8 % 11.6-14.6 [facility] 49.3 fl 35.1-43.9 [facility] 64 mL/min >60 [facility] 77 mL/min >60 [facility] 20.2 RATIO 10-20 [facility] 3.4 g/dL 2.2-4.2 [facility] 88 U/L 45-117 [facility] 32 U/L 16-61 [facility] 26.0 mmol/L 21.0-32.0 [facility] Platelets bldOrdered By: Italia Cooley on 04-12-2023 Platelets (Bld) [#/Vol] 385 10*3/uL 150-450 [facility] Serum or plasma albumin luis urement (mass/volume)Ordered By: Андрей Cooley on 04-12-2023 Albumin [Mass/Vol] 3.0 g/dL 3.2-5.0 [facility] Serum or plasma albumin/glob ulin mass ratioOrdered By: Андрей Cooley on 04-12-2023 Albumin/Globulin [Mass ratio] 0.9 {ratio} 0.9-2.4 [facility] Serum or plasma calcium luis urement (mass/volume)Ordered By: Андрей Cooley on 04-12-2023 Calcium [Mass/Vol] 8.7 mg/dL 8.5-10.1 [facility] Serum or plasma creatinine m easurement (mass/volume)Ordered By: Андрей Cooley on 04-12-2023 Creatinine [Mass/Vol] 1.19 mg/dL 0.70-1.30 [facility] Comment on above: The validity of the calculated GFR & GFRAA in patients over 70 years has not been determined. Clinical correlation is essential. Serum or plasma urea nitroge n measurement (mass/volume)Ordered By: Андрей Cooley on 04-12-2023 Urea nitrogen [Mass/Vol] 24 mg/dL 7-18 [facility] Thin prep Papanicolaou smear with manual screeningOrdered By: Андрей Cooley on 04-12-2023 Thin prep Papanicolaou smear with manual screening 21 U/L 15-37 [facility] Thin prep Papanicolaou smear with manual screening 6 5-15 [facility] Basophil percentageOrdered B y: Андрей Cooley on 04-05-2023 Basophil percentage 105 mg/dL 74-106 [facility] Basophil percentage 6.7 g/dL 6.4-8.2 [facility] Basophil percentage 0.20 mg/dL 0.20-1.00 [facility] Basophil percentage 139 mmol/L 136-145 [facility] Basophil percentage 3.9 mmol/L 3.5-5.1 [facility] Basophil percentage 105 mmol/L 98-107 [facility] Basophils (Bld) [#/Vol] 5.8 10*3/uL 4.4-11.0 [facility] Bilirubin [Mass/Vol] 0.20 mg/dL 0.20-1.00 [facility] Comment on above: For patients on eltr ombopag therapy, use of Dimension [place] TBIL is not recommended. Chloride [Moles/Vol] 105 mmol/L 98-107 [facility] Glucose [Mass/Vol] 105 mg/dL 74-106 [facility] Comment on above: Fasting Glucose resu lt from 100 to 125 mg/dL suggests IMPAIRED HOMEOSTASIS per A.D.A. criteria. Potassium [Moles/Vol] 3.9 mmol/L 3.5-5.1 [facility] Protein [Mass/Vol] 6.7 g/dL 6.4-8.2 [facility] Sodium [Moles/Vol] 139 mmol/L 136-145 [facility] WBC (Bld) [#/Vol] 5.8 10*3/uL 4.4-11.0 [facility] Blood erythrocytes count (nu mber/volume)Ordered By: Андрей Cooley on 04-05-2023 RBC (Bld) [#/Vol] 4.40 10*6/uL 4.6-6.2 [facility] Blood hemoglobin measurement (mass/volume)Ordered By: Андрей Cooley on 04-05-2023 Hemoglobin (Bld) [Mass/Vol] 13.9 g/dL 13.0-16.5 [facility] Blood platelet mean volumeOr dered By: Андрей Cooley on 04-05-2023 Platelet mean volume (Bld) [Entitic vol] 9.5 fL 6.2-12.0 [facility] Determination of erythrocyte mean corpuscular volume (MCV)Ordered By: Андрей Cooley on 04-05-2023 MCV (RBC) [Entitic vol] 96.8 fL 80-94 [facility] Hematocrit Auto (Bld) [Volum e fraction]Ordered By: Андрей Cooley on 04-05-2023 Hematocrit (Bld) [Volume fraction] 42.6 % 40-54 [facility] - Chemistry and C hemistry - challengeOrdered By: Андрей Cooley on 04-05-2023 ALP [Catalytic activity/Vol] 60 U/L 45-117 [facility] ALT [Catalytic activity/Vol] 54 U/L 16-61 [facility] CO2 [Moles/Vol] 28.0 mmol/L 21.0-32.0 [facility] Globulin (S) [Mass/Vol] 3.8 g/dL 2.2-4.2 [facility] Urea nitrogen/Creatinine [Mass ratio] 22.0 mg/mg 10-20 [facility] - Hematology and Cell countsOrdered By: Андрей Cooley on 04-05-2023 Erythrocyte distribution width (RBC) [Entitic vol] 50.1 fL 35.1-43.9 [facility] Erythrocyte distribution width (RBC) [Ratio] 14.0 % 11.6-14.6 [facility] MCH (RBC) [Entitic mass] 31.6 pg 27.0-32.0 [facility] MCHC Auto (RBC) [Mass/Vol]Or dered By: Андрей Cooley on 04-05-2023 MCHC (RBC) [Mass/Vol] 32.6 g/dL 32-36 [facility] No Panel InformationOrdered By: Андрей Cooley on 04-05-2023 Estimated GFR (MDRD) Amer 85 mL/min >60 [facility] Comment on above: GFR Calc Estimated GFR (MDRD) Non-Af Amer 70 mL/min >60 [facility] Comment on above: Non- GFR Calc 31.6 pg 27.0-32.0 [facility] 14.0 % 11.6-14.6 [facility] 50.1 fl 35.1-43.9 [facility] 70 mL/min >60 [facility] 85 mL/min >60 [facility] 22.0 RATIO 10-20 [facility] 3.8 g/dL 2.2-4.2 [facility] 60 U/L 45-117 [facility] 54 U/L 16-61 [facility] 28.0 mmol/L 21.0-32.0 [facility] Platelets bldOrdered By: Italia Cooley on 04-05-2023 Platelets (Bld) [#/Vol] 399 10*3/uL 150-450 [facility] Serum or plasma albumin luis urement (mass/volume)Ordered By: Андрей Cooley on 04-05-2023 Albumin [Mass/Vol] 2.9 g/dL 3.2-5.0 [facility] Serum or plasma albumin/glob ulin mass ratioOrdered By: Андрей Cooley on 04-05-2023 Albumin/Globulin [Mass ratio] 0.8 {ratio} 0.9-2.4 [facility] Serum or plasma calcium luis urement (mass/volume)Ordered By: Андрей Cooley on 04-05-2023 Calcium [Mass/Vol] 9.3 mg/dL 8.5-10.1 [facility] Serum or plasma creatinine m easurement (mass/volume)Ordered By: Андрей Cooley on 04-05-2023 Creatinine [Mass/Vol] 1.09 mg/dL 0.70-1.30 [facility] Comment on above: The validity of the calculated GFR & GFRAA in patients over 70 years has not been determined. Clinical correlation is essential. Serum or plasma urea nitroge n measurement (mass/volume)Ordered By: Андрей Cooley on 04-05-2023 Urea nitrogen [Mass/Vol] 24 mg/dL 7-18 [facility] Thin prep Papanicolaou smear with manual screeningOrdered By: Андрей Cooley on 04-05-2023 Thin prep Papanicolaou smear with manual screening 38 U/L 15-37 [facility] Thin prep Papanicolaou smear with manual screening 6 5-15 [facility] Absolute lymphocyte countOrd ered By: Frankie Galindo on 04-04-2023 Lymphocytes Auto (Unsp spec) [#/Vol] 1.49 10*3/uL 0.83-4.51 [facility] Basophil percentageOrdered B y: Frankie Galindo on 04-04-2023 Basophil percentage 101 mg/dL 74-106 [facility] Basophil percentage 136 mmol/L 136-145 [facility] Basophil percentage 3.9 mmol/L 3.5-5.1 [facility] Basophil percentage 103 mmol/L 98-107 [facility] Basophils (Bld) [#/Vol] 6.3 10*3/uL 4.4-11.0 [facility] Basophils (Bld) [#/Vol] 4.1 10*3/uL 2.0-7.7 [facility] Basophils/100 WBC (Bld) 1.1 % 0-1 [facility] Basophils/100 WBC (Bld) 64.4 % 47-70 [facility] Basophils/100 WBC (Bld) 3.3 % 0-5 [facility] Chloride [Moles/Vol] 103 mmol/L 98-107 [facility] Eosinophils/100 WBC (Bld) 3.3 % 0-5 [facility] Glucose [Mass/Vol] 101 mg/dL 74-106 [facility] Comment on above: Fasting Glucose resu lt from 100 to 125 mg/dL suggests IMPAIRED HOMEOSTASIS per A.D.A. criteria. Neutrophils (Bld) [#/Vol] 4.1 10*3/uL 2.0-7.7 [facility] Neutrophils/100 WBC (Bld) 64.4 % 47-70 [facility] Potassium [Moles/Vol] 3.9 mmol/L 3.5-5.1 [facility] Sodium [Moles/Vol] 136 mmol/L 136-145 [facility] WBC (Bld) [#/Vol] 6.3 10*3/uL 4.4-11.0 [facility] Blood erythrocytes count (nu mber/volume)Ordered By: Frankie Galindo on 04-04-2023 RBC (Bld) [#/Vol] 4.82 10*6/uL 4.6-6.2 [facility] Blood hemoglobin measurement (mass/volume)Ordered By: Frankie Galindo on 04-04-2023 Hemoglobin (Bld) [Mass/Vol] 15.1 g/dL 13.0-16.5 [facility] Blood lymphocytes/100 leukoc ytesOrdered By: Frankie Galindo on 04-04-2023 Lymphocytes/100 WBC (Bld) 23.6 % 19-41 [facility] Blood monocytes/100 leukocyt esOrdered By: Frankie Galindo on 04-04-2023 Monocytes/100 WBC (Bld) 6.3 % 0-10 [facility] Blood platelet mean volumeOr dered By: Frankie Galindo on 04-04-2023 Platelet mean volume (Bld) [Entitic vol] 9.3 fL 6.2-12.0 [facility] Determination of erythrocyte mean corpuscular volume (MCV)Ordered By: Frankie Galindo on 04-04-2023 MCV (RBC) [Entitic vol] 96.7 fL 80-94 [facility] Hematocrit Auto (Bld) [Volum e fraction]Ordered By: Frankie Galindo on 04-04-2023 Hematocrit (Bld) [Volume fraction] 46.6 % 40-54 [facility] - Chemistry and C hemistry - challengeOrdered By: Frankie Galindo on 04-04-2023 CO2 [Moles/Vol] 29.0 mmol/L 21.0-32.0 [facility] Urea nitrogen/Creatinine [Mass ratio] 20.3 mg/mg 10-20 [facility] - Hematology and Cell countsOrdered By: Frankie Galindo on 04-04-2023 Erythrocyte distribution width (RBC) [Entitic vol] 48.9 fL 35.1-43.9 [facility] Erythrocyte distribution width (RBC) [Ratio] 13.6 % 11.6-14.6 [facility] Immature granulocytes/100 WBC (Bld) 1.300 % 0.0-0.9 [facility] Comment on above: IG% - Immature Granu locytes (promyelocytes, myelocytes and metamyelocytes) > 1% indicates that a LEFT SHIFT is Present. MCH (RBC) [Entitic mass] 31.3 pg 27.0-32.0 [facility] Nucleated RBC/100 WBC (Bld) [Ratio] 0 % 0-5 [facility] MCHC Auto (RBC) [Mass/Vol]Or dered By: Frankie Galindo on 04-04-2023 MCHC (RBC) [Mass/Vol] 32.4 g/dL 32-36 [facility] No Panel InformationOrdered By: Frankie Galindo on 04-04-2023 Estimated Creatinine Clearance Calc 45.80 ml/min [facility] Estimated GFR (MDRD) Amer 71 mL/min >60 [facility] Comment on above: GFR Calc Estimated GFR (MDRD) Non-Af Amer 58 mL/min >60 [facility] Comment on above: Non- GFR Calc 31.3 pg 27.0-32.0 [facility] 13.6 % 11.6-14.6 [facility] 48.9 fl 35.1-43.9 [facility] 1.300 % 0.0-0.9 [facility] 0 % 0-5 [facility] 58 mL/min >60 [facility] 71 mL/min >60 [facility] 45.80 ml/min [facility] 20.3 RATIO 10-20 [facility] 29.0 mmol/L 21.0-32.0 [facility] Platelets bldOrdered By: Sebastien Galindo on 04-04-2023 Platelets (Bld) [#/Vol] 379 10*3/uL 150-450 [facility] Serum or plasma calcium luis urement (mass/volume)Ordered By: Frankie Galindo on 04-04-2023 Calcium [Mass/Vol] 9.7 mg/dL 8.5-10.1 [facility] Serum or plasma creatinine m easurement (mass/volume)Ordered By: Frankie Galindo on 04-04-2023 Creatinine [Mass/Vol] 1.28 mg/dL 0.70-1.30 [facility] Comment on above: The validity of the calculated GFR & GFRAA in patients over 70 years has not been determined. Clinical correlation is essential. Serum or plasma urea nitroge n measurement (mass/volume)Ordered By: Frankie Galindo on 04-04-2023 Urea nitrogen [Mass/Vol] 26 mg/dL 7-18 [facility] Thin prep Papanicolaou smear with manual screeningOrdered By: Frankie Galindo on 04-04-2023 Thin prep Papanicolaou smear with manual screening 4 5- [facility] Basophil percentageOrdered B y: Frankie Galindo on 04-02-2023 Basophil percentage 2.6 mg/dL 2.5-4.9 [facility] - Chemistry and C hemistry - challengeOrdered By: Frankie Galindo on 04-02-2023 Magnesium [Mass/Vol] 2.0 mg/dL 1.6-2.6 [facility] No Panel InformationOrdered By: Frankie Galindo on 04-02-2023 2.0 mg/dL 1.6-2.6 [facility] Basophil percentageOrdered B y: Celia Toribio on 04-01-2023 Basophil percentage 6.5 g/dL 6.4-8.2 [facility] Basophil percentage 0.30 mg/dL 0.20-1.00 [facility] Bilirubin [Mass/Vol] 0.30 mg/dL 0.20-1.00 [facility] Comment on above: For patients on eltr ombopag therapy, use of Dimension [place] TBIL is not recommended. Protein [Mass/Vol] 6.5 g/dL 6.4-8.2 [facility] Laboratory - Chemistry and C hemistry - challengeOrdered By: Celia Toribio on 04-01-2023 ALP [Catalytic activity/Vol] 57 U/L 45-117 [facility] ALT [Catalytic activity/Vol] 21 U/L 16-61 [facility] Globulin (S) [Mass/Vol] 3.9 g/dL 2.2-4.2 [facility] No Panel InformationOrdered By: Celia Toribio on 04-01-2023 3.9 g/dL 2.2-4.2 [facility] 57 U/L 45-117 [facility] 21 U/L 16-61 [facility] Serum or plasma albumin luis urement (mass/volume)Ordered By: Celia Toribio on 04-01-2023 Albumin [Mass/Vol] 2.6 g/dL 3.2-5.0 [facility] Serum or plasma albumin/glob ulin mass ratioOrdered By: Celia Toribio on 04-01-2023 Albumin/Globulin [Mass ratio] 0.7 {ratio} 0.9-2.4 [facility] Thin prep Papanicolaou smear with manual screeningOrdered By: Celia Toribio on 04-01-2023 Thin prep Papanicolaou smear with manual screening 12 U/L 15-37 [facility] Absolute lymphocyte countOrd ered By: Huber Alvarado on 03-30-2023 Lymphocytes Auto (Unsp spec) [#/Vol] 0.93 10*3/uL 0.83-4.51 [facility] Bacteria identified Cx Nom ( U)Ordered By: Huber Alvarado on 03-30-2023 Culture, urine ESBL Escherichia coli [facility] Basophil percentageOrdered B y: Huber Alvarado on 03-30-2023 Basophil percentage 1.4 mmol/L 0.4-2.0 [facility] Lactate [Moles/Vol] 1.4 mmol/L 0.4-2.0 [facility] Basophil percentage 25-50 SEEN /hpf 0-5 [facility] Basophils/100 WBC (Bld) 0.7 % 0-1 [facility] Chloride [Moles/Vol] 99 mmol/L 98-107 [facility] Eosinophils/100 WBC (Bld) 0.0 % 0-5 [facility] Glucose [Mass/Vol] 104 mg/dL 74-106 [facility] Comment on above: Fasting Glucose resu lt from 100 to 125 mg/dL suggests IMPAIRED HOMEOSTASIS per A.D.A. criteria. Neutrophils (Bld) [#/Vol] 7.9 10*3/uL 2.0-7.7 [facility] Neutrophils/100 WBC (Bld) 79.2 % 47-70 [facility] Potassium [Moles/Vol] 4.0 mmol/L 3.5-5.1 [facility] Sodium [Moles/Vol] 134 mmol/L 136-145 [facility] WBC (Bld) [#/Vol] 10.0 10*3/uL 4.4-11.0 [facility] Bilirubin Test strip Ql (U)O rdered By: Huber Alvarado on 03-30-2023 Bilirubin Ql (U) Negative Negative [facility] Blood erythrocytes count (nu mber/volume)Ordered By: Huber Alvarado on 03-30-2023 RBC (Bld) [#/Vol] 4.81 10*6/uL 4.6-6.2 [facility] Blood hemoglobin measurement (mass/volume)Ordered By: Huber Alvarado on 03-30-2023 Hemoglobin (Bld) [Mass/Vol] 15.4 g/dL 13.0-16.5 [facility] Blood lymphocytes/100 leukoc ytesOrdered By: Huber Alvarado on 03-30-2023 Lymphocytes/100 WBC (Bld) 9.3 % 19-41 [facility] Blood monocytes/100 leukocyt esOrdered By: Huber Alvarado on 03-30-2023 Monocytes/100 WBC (Bld) 10.5 % 0-10 [facility] Blood platelet mean volumeOr dered By: Huber Alvarado on 03-30-2023 Platelet mean volume (Bld) [Entitic vol] 9.8 fL 6.2-12.0 [facility] Culture, urineOrdered By: Baldo Chan on 03-30-2023 Bacteria identified Cx Nom (U) ESBL Escherichia coli [facility] Bacteria identified Cx Nom (U) ESBL Escherichia coli [facility] Determination of erythrocyte mean corpuscular volume (MCV)Ordered By: Huber Alvarado on 03-30-2023 MCV (RBC) [Entitic vol] 97.5 fL 80-94 [facility] Hematocrit Auto (Bld) [Volum e fraction]Ordered By: Huber Alvarado on 03-30-2023 Hematocrit (Bld) [Volume fraction] 46.9 % 40-54 [facility] Ketones Test strip Ql (U)Ord ered By: Huber Alvarado on 03-30-2023 Ketones Ql (U) Negative Negative [facility] Laboratory - Chemistry and C hemistry - challengeOrdered By: Huber Alvarado on 03-30-2023 CO2 [Moles/Vol] 31.0 mmol/L 21.0-32.0 [facility] Urea nitrogen/Creatinine [Mass ratio] 16.0 mg/mg 10-20 [facility] Laboratory - Hematology and Cell countsOrdered By: Huber Alvarado on 03-30-2023 Erythrocyte distribution width (RBC) [Entitic vol] 50.3 fL 35.1-43.9 [facility] Erythrocyte distribution width (RBC) [Ratio] 13.9 % 11.6-14.6 [facility] Immature granulocytes/100 WBC (Bld) 0.300 % 0.0-0.9 [facility] Comment on above: IG% - Immature Granu locytes (promyelocytes, myelocytes and metamyelocytes) > 1% indicates that a LEFT SHIFT is Present. MCH (RBC) [Entitic mass] 32.0 pg 27.0-32.0 [facility] Nucleated RBC/100 WBC (Bld) [Ratio] 0 % 0-5 [facility] Laboratory - Microbiology an d Antimicrobial susceptibilityOrdered By: Huber Alvarado on 03-30-2023 Bacteria identified Cx Nom (Bld) No growth in 5 days. [facility] MCHC Auto (RBC) [Mass/Vol]Or dered By: Huber Alvarado on 03-30-2023 MCHC (RBC) [Mass/Vol] 32.8 g/dL 32-36 [facility] Mucus LM Ql (Urine sed)Order ed By: Huber Alvarado on 03-30-2023 Mucus Ql (Urine sed) 0 SEEN /hpf [facility] Nitrite Test strip Ql (U)Ord ered By: Huber Alvarado on 03-30-2023 Nitrite Ql (U) Negative Negative [facility] No Panel InformationOrdered By: Huber Alvarado on 03-30-2023 No growth in 5 days. [facility] Estimated GFR (MDRD) Amer 77 mL/min >60 [facility] Comment on above: GFR Calc Estimated GFR (MDRD) Non-Af Amer 64 mL/min >60 [facility] Comment on above: Non- GFR Calc Platelets bldOrdered By: Beck Alvarado on 03-30-2023 Platelets (Bld) [#/Vol] 276 10*3/uL 150-450 [facility] Protein Test strip Ql (U)Ord ered By: Huber Alvarado on 03-30-2023 Protein Ql (U) 100 mg/dl Negative [facility] Serum or plasma calcium luis urement (mass/volume)Ordered By: Huber Alvarado on 03-30-2023 Calcium [Mass/Vol] 9.8 mg/dL 8.5-10.1 [facility] Serum or plasma creatinine m easurement (mass/volume)Ordered By: Huber Alvarado on 03-30-2023 Creatinine [Mass/Vol] 1.19 mg/dL 0.70-1.30 [facility] Comment on above: The validity of the calculated GFR & GFRAA in patients over 70 years has not been determined. Clinical correlation is essential. Serum or plasma urea nitroge n measurement (mass/volume)Ordered By: Huber Alvarado on 03-30-2023 Urea nitrogen [Mass/Vol] 19 mg/dL 7-18 [facility] Squamous epithelial cells de tection in urine sediment by light microscopyOrdered By: Huber Alvarado on 03-30-2023 Epithelial cells.squamous LM Ql (Urine sed) 0-5 SEEN /hpf 0-5 [facility] Thin prep Papanicolaou smear with manual screeningOrdered By: Huber Alvarado on 03-30-2023 Thin prep Papanicolaou smear with manual screening 4 5-15 [facility] Urine blood detectionOrdered By: Huber Alvarado on 03-30-2023 RBC Ql (U) 50 /ul Negative [facility] RBC Ql (U) 0 SEEN /hpf 0-5 [facility] Urine clarityOrdered By: Beck Alvarado on 03-30-2023 Clarity (U) Sl. Cloudy Clear [facility] Urine color determinationOrd ered By: Huber Alvarado on 03-30-2023 Color (U) Yellow Yellow [facility] Urine glucose detectionOrder ed By: Huber Alvarado on 03-30-2023 Glucose Ql (U) Normal mg/dl Normal [facility] Urine leukocyte esterase det ection by dipstickOrdered By: Huber Alvarado on 03-30-2023 Leukocyte esterase Test strip Ql (U) 500 /ul Negative [facility] Urine pHOrdered By: Huber billingsley on 03-30-2023 pH (U) 6.0 [pH] 5.0 - 8.0 [facility] Urine sediment bacteria coun t by microscopy (number/high power field)Ordered By: Huber Alvarado on 03-30-2023 Bacteria LM.HPF (Urine sed) [#/Area] 3 /[HPF] None Seen [facility] Urine specific gravity measu rementOrdered By: Huber Alvarado on 03-30-2023 Specific gravity (U) [Rel density] 1.020 1.002-1.030 [facility] Urobilinogen Auto test strip Ql (U)Ordered By: Huber Alvarado on 03-30-2023 Urobilinogen Ql (U) Normal mg/dl Normal [facility] INR in Blood by Coagulation assayOrdered By: Jaden Jauregui on 02-18-2023 INR Coag (Bld) [Relative time] 0.9 {INR} [facility] Laboratory - CoagulationOrde red By: Jaden Jauregui on 02-18-2023 PT Coag (PPP) [Time] 12.4 s 11.7-14.[address] [facility] [address] ABD/PELVIS W/ IV CONTRAST ONLYon [...] 10/22/2022 10:33:36 PM Ordering Provider: PRIYANKA FRANCO Normal [facility] ([place]) .Auto Diffon 10-22-2022 Basophil, Absolute 0.1 10 3/mcL Normal 0.0-0.2 [facility] ([place]) Comment on above: Performed By: #### A DIFF, LIP, MDW, CMP, GFR, ANEU, CBC #### [id number] [place], [place] [address] Basophils/100 WBC (Bld) 0.8 % Normal 0.0-2.5 A [facility] ([place]) Comment on above: Performed By: #### A DIFF, LIP, MDW, CMP, GFR, ANEU, CBC #### [address] [address] Eosinophil, Absolute 0.0 10 3/mcL Normal 0.0-0.4 [facility] ([place]) Comment on above: Performed By: #### A DIFF, LIP, MDW, CMP, GFR, ANEU, CBC #### [address] [address] Eosinophils/100 WBC (Bld) 0.3 % Normal 0.0-7.0 [facility] ([place]) Comment on above: Performed By: #### A DIFF, LIP, MDW, CMP, GFR, ANEU, CBC #### [address] [address] Lymphocyte, Absolute 0.9 10 3/mcL Normal 0.8-3.9 [facility] ([place]) Comment on above: Performed By: #### A DIFF, LIP, MDW, CMP, GFR, ANEU, CBC #### [address] [address] Lymphocytes/100 WBC (Bld) 8.1 % Low 10.0-50.0 [facility] ([place]) Comment on above: Performed By: #### A DIFF, LIP, MDW, CMP, GFR, ANEU, CBC #### [address] [address] Monocyte, Absolute 0.7 10 3/mcL Normal 0.2-1.0 [facility] ([place]) Comment on above: Performed By: #### A DIFF, LIP, MDW, CMP, GFR, ANEU, CBC #### [address] [address] Monocytes/100 WBC (Bld) 6.8 % Normal 1.7-13.0 A [facility] ([place]) Comment on above: Performed By: #### A DIFF, LIP, MDW, CMP, GFR, ANEU, CBC #### [address] [address] Neutrophils/100 WBC (Bld) 84.0 % High 37.0-80.0 [facility] ([place]) Comment on above: Performed By: #### A FILIBERTO HANSON MDW, CMP, GFR, ANEU, CBC #### [address] [address] .GFRon 10-22-2022 GFR Non- 58 ml/min/1.73sqm Normal [facility] ([place]) Comment on above: Result Comment: GFR Population [...] mL/min/1.73 square meters Performed By: #### A FILIBERTO HANSON MDW, DAVID, GFR, ANEU, CBC #### [address] [address] GFR 71 ml/min/1.73sqm Normal [facility] ([place]) Comment on above: Result Comment: GFR Population [...] mL/min/1.73 square meters Performed By: #### A DIFFFILIBERTO MDW, CMP, GFR, ANEU, CBC #### [place] [address] .MDWon 10-22-2022 Monocyte Distribution Width 24.33 High 0.00-20.00 [facility] ([place]) Comment on above: Result Comment: For adults in ED, MDW>20.0 may be associated with a higher risk of sepsis during the first 12hrs of hospital admission Performed By: #### A DIFF, LIP, MDW, CMP, GFR, ANEU, CBC #### [place] [address] .NEUABSon 10-22-2022 Neutrophil, Absolute 8.9 10 3/mcL High 2.9-6.2 [facility] ([place]) Comment on above: Performed By: #### A DIFF, LIP, MDW, CMP, GFR, ANEU, CBC #### [place] [address] CBCon 10-22-2022 Erythrocyte distribution width (RBC) [Ratio] 14.0 % Normal 11.5-14.5 [facility] ([place]) Comment on above: Performed By: #### A DIFF, LIP, MDW, CMP, GFR, ANEU, CBC #### [place] [address] Hematocrit (Bld) [Volume fraction] 38.9 % Low 42.0-52.0 [facility] ([place]) Comment on above: Performed By: #### A DIFF, LIP, MDW, CMP, GFR, ANEU, CBC #### [place] [address] Hgb 13.5 G/dL Low 14.0-18.0 [facility] ([place]) Comment on above: Performed By: #### A DIFF, LIP, MDW, CMP, GFR, ANEU, CBC #### [place] [address] MCH (RBC) [Entitic mass] 33.0 pg High 27.0-31.2 [facility] ([place]) Comment on above: Performed By: #### A DIFF, LIP, MDW, CMP, GFR, ANEU, CBC #### [address] [address] MCHC 34.8 G/dL Normal 31.8-35.4 [facility] ([place]) Comment on above: Performed By: #### A DIFF, LIP, MDW, CMP, GFR, ANEU, CBC #### [address] [address] MCV (RBC) [Entitic vol] 95.0 fL High 80.0-94.0 A [facility] ([place]) Comment on above: Performed By: #### A DIFF, LIP, MDW, CMP, GFR, ANEU, CBC #### [address] [address] Platelet 344 10 3/mcL Normal 130-400 [facility] ([place]) Comment on above: Performed By: #### A DIFF, LIP, MDW, CMP, GFR, ANEU, CBC #### [address] [address] Platelet mean volume (Bld) [Entitic vol] 7.1 fL Low 7.4-10.4 [facility] ([place]) Comment on above: Performed By: #### A DIFF, LIP, MDW, CMP, GFR, ANEU, CBC #### [address] [address] RBC 4.10 10 6/mcL Normal 4.04-6.13 [facility] ([place]) Comment on above: Performed By: #### A DIFF, LIP, MDW, CMP, GFR, ANEU, CBC #### [address] [address] WBC 10.6 10 3/mcL Normal 4.6-10.8 [facility] ([place]) Comment on above: Performed By: #### A DIFF, LIP, MDW, CMP, GFR, ANEU, CBC #### [address] [address] CMPon 10-22-2022 Albumin Level 2.9 G/dL Low 3.4-4.8 [facility] ([place]) Comment on above: Performed By: #### A DIFF, LIP, MDW, CMP, GFR, ANEU, CBC #### [address] [address] Albumin/Globulin [Mass ratio] 0.8 {ratio} Low 1.1-2.5 [facility] ([place]) Comment on above: Performed By: #### A DIFF, LIP, MDW, CMP, GFR, ANEU, CBC #### [address] [address] ALP [Catalytic activity/Vol] 98 U/L Normal 40-135 [facility] ([place]) Comment on above: Performed By: #### A DIFF, LIP, MDW, CMP, GFR, ANEU, CBC #### [address] [address] ALT [Catalytic activity/Vol] 46 U/L Normal 16-63 [facility] ([place]) Comment on above: Performed By: #### A DIFF, LIP, MDW, CMP, GFR, ANEU, CBC #### [address] [address] AST [Catalytic activity/Vol] 29 U/L Normal 10-40 [facility] ([place]) Comment on above: Performed By: #### A DIFF, LIP, MDW, CMP, GFR, ANEU, CBC #### [address] [address] Bili Total 0.3 mg/dL Normal 0.2-1.0 [facility] ([place]) Comment on above: Result Comment: Use of this assay is not recommended for patients undergoing treatment with eltrombopag due to the potential for falsely elevated results. Performed By: #### A DIFF, LIP, MDW, CMP, GFR, ANEU, CBC #### [address] [address] BUN/Creatinine Ratio 17 ratio Normal 7-27 [facility] ([place]) Comment on above: Performed By: #### A DIFF, LIP, MDW, CMP, GFR, ANEU, CBC #### [address] [address] Calcium [Mass/Vol] 9.2 mg/dL Normal 8.4-10.2 [facility] ([place]) Comment on above: Performed By: #### A DIFF, LIP, MDW, CMP, GFR, ANEU, CBC #### [address] [address] Chloride [Moles/Vol] 96 mmol/L Low 98-107 [facility] ([place]) Comment on above: Performed By: #### A DIFF, LIP, MDW, CMP, GFR, ANEU, CBC #### [address] [address] CO2 [Moles/Vol] 33 mmol/L High 23-31 [facility] ([place]) Comment on above: Performed By: #### A DIFF, LIP, MDW, CMP, GFR, ANEU, CBC #### [address] [address] Creatinine [Mass/Vol] 1.22 mg/dL Normal 0.70-1.30 [facility] ([place]) Comment on above: Performed By: #### A DIFF, LIP, MDW, CMP, GFR, ANEU, CBC #### [address] [address] Electrolyte Balance 5.0 mEq/L Normal 4.0-15.0 [facility] ([place]) Comment on above: Performed By: #### A DIFF, LIP, MDW, CMP, GFR, ANEU, CBC #### [address] [address] Globulin 3.5 G/dL Normal [facility] ([place]) Comment on above: Performed By: #### A DIFF, LIP, MDW, CMP, GFR, ANEU, CBC #### [address] [address] Glucose [Mass/Vol] 111 mg/dL High 83-110 [facility] ([place]) Comment on above: Performed By: #### A DIFF, LIP, MDW, CMP, GFR, ANEU, CBC #### [address] [address] Potassium [Moles/Vol] 4.3 mmol/L Normal 3.5-5.1 [facility] ([place]) Comment on above: Performed By: #### A DIFF, LIP, MDW, CMP, GFR, ANEU, CBC #### [id number] [place], [place] [address] Sodium [Moles/Vol] 134 mmol/L Low 136-145 [facility] ([place]) Comment on above: Performed By: #### A DIFF, LIP, MDW, CMP, GFR, ANEU, CBC #### [id number] [place], [place] [address] Total Protein 6.4 G/dL Normal 6.4-8.2 [facility] ([place]) Comment on above: Performed By: #### A DIFF, LIP, MDW, CMP, GFR, ANEU, CBC #### [id number] [place], [place] [address] Urea nitrogen [Mass/Vol] 21 mg/dL High 7-18 [facility] ([place]) Comment on above: Performed By: #### A DIFF, LIP, MDW, CMP, GFR, ANEU, CBC #### [address] [address] LABORATORYOrdered By: SYSTEM SYSTEM on 10-22-2022 Albumin [...] 10-22-2022 Lipase Level 32 U/L Normal 16-77 [facility] ([place]) Comment on above: Performed By: #### A DIFF, LIP, MDW, CMP, GFR, ANEU, CBC #### [id number] [place], [place] [address] Absolute lymphocyte countOrd ered By: Dr. Jauregui on 10-21-2022 Lymphocytes Auto (Unsp spec) [#/Vol] 0.85 10*3/uL 0.83-4.51 [facility] Basophil percentageOrdered B y: Dr. Jauregui on 10-21-2022 Basophil percentage 25-50 SEEN /hpf 0-5 [facility] Basophils/100 WBC (Bld) 0.6 % 0-1 [facility] Bilirubin [Mass/Vol] 0.30 mg/dL 0.20-1.00 [facility] Comment on above: For patients on eltr ombopag therapy, use of Dimension [place] TBIL is not recommended. Chloride [Moles/Vol] 99 mmol/L 98-107 [facility] Eosinophils/100 WBC (Bld) 0.4 % 0-5 [facility] Glucose [Mass/Vol] 104 mg/dL 74-106 [facility] Comment on above: Fasting Glucose resu lt from 100 to 125 mg/dL suggests IMPAIRED HOMEOSTASIS per A.D.A. criteria. Neutrophils (Bld) [#/Vol] 8.8 10*3/uL 2.0-7.7 [facility] Neutrophils/100 WBC (Bld) 84.2 % 47-70 [facility] Potassium [Moles/Vol] 3.6 mmol/L 3.5-5.1 [facility] Protein [Mass/Vol] 7.2 g/dL 6.4-8.2 [facility] Sodium [Moles/Vol] 135 mmol/L 136-145 [facility] WBC (Bld) [#/Vol] 10.4 10*3/uL 4.4-11.0 [facility] Bilirubin Test strip Ql (U)O rdered By: Dr. Jauregui on 10-21-2022 Bilirubin Ql (U) Negative Negative [facility] Blood erythrocytes count (nu mber/volume)Ordered By: Dr. Jauregui on 10-21-2022 RBC (Bld) [#/Vol] 4.51 10*6/uL 4.6-6.2 [facility] Blood hemoglobin measurement (mass/volume)Ordered By: Dr. Jauregui on 10-21-2022 Hemoglobin (Bld) [Mass/Vol] 14.4 g/dL 13.0-16.5 [facility] Blood lymphocytes/100 leukoc ytesOrdered By: Dr. Jauregui on 10-21-2022 Lymphocytes/100 WBC (Bld) 8.2 % 19-41 [facility] Blood monocytes/100 leukocyt esOrdered By: Dr. Jauregui on 10-21-2022 Monocytes/100 WBC (Bld) 5.4 % 0-10 [facility] Blood platelet mean volumeOr dered By: Dr. Jauregui on 10-21-2022 Platelet mean volume (Bld) [Entitic vol] 8.9 fL 6.2-12.0 [facility] Culture, urineOrdered By: Joseph Jauregui on 10-21-2022 Bacteria identified Cx Nom (U) Presumptive E. coli [facility] Determination of erythrocyte mean corpuscular volume (MCV)Ordered By: Dr. Jauregui on 10-21-2022 MCV (RBC) [Entitic vol] 95.6 fL 80-94 [facility] Hematocrit Auto (Bld) [Volum e fraction]Ordered By: Dr. Jauregui on 10-21-2022 Hematocrit (Bld) [Volume fraction] 43.1 % 40-54 [facility] Ketones Test strip Ql (U)Ord ered By: Dr. Jauregui on 10-21-2022 Ketones Ql (U) Negative Negative [facility] Laboratory - Chemistry and C hemistry - challengeOrdered By: Dr. Jauregui on 10-21-2022 ALP [Catalytic activity/Vol] 84 U/L 45-117 [facility] ALT [Catalytic activity/Vol] 41 U/L 16-61 [facility] CO2 [Moles/Vol] 28.0 mmol/L 21.0-32.0 [facility] Globulin (S) [Mass/Vol] 4.2 g/dL 2.2-4.2 [facility] Lipase [Catalytic activity/Vol] 42 U/L 13-75 [facility] Comment on above: Please note:LIPASE r evised reference range effective 22. New Lipase methodology. Expected to produce lower values than the previous assay method. NEW Reference Range: 13 - 75 U/L Urea nitrogen/Creatinine [Mass ratio] 16.3 mg/mg 10-20 [facility] Laboratory - Hematology and Cell countsOrdered By: Dr. Jauregui on 10-21-2022 Erythrocyte distribution width (RBC) [Entitic vol] 45.7 fL 35.1-43.9 [facility] Erythrocyte distribution width (RBC) [Ratio] 13.0 % 11.6-14.6 [facility] Immature granulocytes/100 WBC (Bld) 1.200 % 0.0-0.9 [facility] Comment on above: IG% - Immature Granu locytes (promyelocytes, myelocytes and metamyelocytes) > 1% indicates that a LEFT SHIFT is Present. MCH (RBC) [Entitic mass] 31.9 pg 27.0-32.0 [facility] Nucleated RBC/100 WBC (Bld) [Ratio] 0 % 0-5 [facility] MCHC Auto (RBC) [Mass/Vol]Or dered By: Dr. Jauregui on 10-21-2022 MCHC (RBC) [Mass/Vol] 33.4 g/dL 32-36 [facility] Mucus LM Ql (Urine sed)Order ed By: Dr. Jauregui on 10-21-2022 Mucus Ql (Urine sed) 0 SEEN /hpf [facility] Nitrite Test strip Ql (U)Ord ered By: Dr. Jauregui on 10-21-2022 Nitrite Ql (U) Negative Negative [facility] No Panel InformationOrdered By: Dr. Jauregui on 10-21-2022 Estimated GFR (MDRD) Amer 90 mL/min >60 [facility] Comment on above: GFR Calc Estimated GFR (MDRD) Non-Af Amer 74 mL/min >60 [facility] Comment on above: Non- GFR Calc Platelets bldOrdered By: Dr. Jauregui on 10-21-2022 Platelets (Bld) [#/Vol] 339 10*3/uL 150-450 [facility] Protein Test strip Ql (U)Ord ered By: Dr. Jauregui on 10-21-2022 Protein Ql (U) 100 mg/dl Negative [facility] Serum or plasma albumin luis urement (mass/volume)Ordered By: Dr. Jauregui on 10-21-2022 Albumin [Mass/Vol] 3.0 g/dL 3.2-5.0 [facility] Serum or plasma albumin/glob ulin mass ratioOrdered By: Dr. Jauregui on 10-21-2022 Albumin/Globulin [Mass ratio] 0.7 {ratio} 0.9-2.4 [facility] Serum or plasma calcium luis urement (mass/volume)Ordered By: Dr. Jauregui on 10-21-2022 Calcium [Mass/Vol] 9.8 mg/dL 8.5-10.1 [facility] Serum or plasma creatinine m easurement (mass/volume)Ordered By: Dr. Jauregui on 10-21-2022 Creatinine [Mass/Vol] 1.04 mg/dL 0.70-1.30 [facility] Comment on above: The validity of the calculated GFR & GFRAA in patients over 70 years has not been determined. Clinical correlation is essential. Serum or plasma urea nitroge n measurement (mass/volume)Ordered By: Dr. Jauregui on 10-21-2022 Urea nitrogen [Mass/Vol] 17 mg/dL 7-18 [facility] Squamous epithelial cells de tection in urine sediment by light microscopyOrdered By: Dr. Jauregui on 10-21-2022 Epithelial cells.squamous LM Ql (Urine sed) 0-5 SEEN /hpf 0-5 [facility] Thin prep Papanicolaou smear with manual screeningOrdered By: Dr. Jauregui on 10-21-2022 Thin prep Papanicolaou smear with manual screening 20 U/L 15-37 [facility] [facility] Papanicolaou smear with manual screening 8 5-15 [facility] Urine blood detectionOrdered By: Dr. Jauregui on 10-21-2022 RBC Ql (U) 50 /ul Negative [facility] RBC Ql (U) 0 SEEN /hpf 0-5 [facility] Urine clarityOrdered By: Dr. Jauregui on 10-21-2022 Clarity (U) Sl. Cloudy Clear [facility] Urine color determinationOrd ered By: Dr. Jauregui on 10-21-2022 Color (U) Yellow Yellow [facility] Urine glucose detectionOrder ed By: Dr. Jauregui on 10-21-2022 Glucose Ql (U) Normal mg/dl Normal [facility] Urine leukocyte esterase det ection by dipstickOrdered By: Dr. Jauregui on 10-21-2022 Leukocyte esterase Test strip Ql (U) 500 /ul Negative [facility] Urine pHOrdered By: Dr. Babs mckeon on 10-21-2022 pH (U) 6.0 [pH] 5.0 - 8.0 [facility] Urine sediment bacteria coun t by microscopy (number/high power field)Ordered By: Dr. Jauregui on 10-21-2022 Bacteria LM.HPF (Urine sed) [#/Area] 2 /[HPF] None Seen [facility] Urine specific gravity measu rementOrdered By: Dr. Jauregui on 10-21-2022 Specific gravity (U) [Rel density] 1.010 1.002-1.030 [facility] Urobilinogen Auto test strip Ql (U)Ordered By: Dr. Jauregui on 10-21-2022 Urobilinogen Ql (U) Normal mg/dl Normal [facility] No Panel InformationOrdered By: Андрей Cooley on 08-11-2022 Miscellaneous Test See comment [facility] Comment on above: TEST RESULT LIMITSCa rbamazepine(Tegretol), S 7.1 ug/mL 4.0-12.0 In conjunction with other antiepileptic drugs Therapeutic 4.0 - 8.0 Toxicity 9.0 - 12.0 Carbamazepine alone Therapeutic 8.0 - 12.0 Detection Limit = 2.0 <2.0 indicated None Detected Verified by repeat analysis TESTING PERFORMED AT [facility]. ORIGINAL REPORT ON FILE IN LAB CONTAINS ADDITIONAL TEST SITE INFORMATION. No Panel InformationOrdered By: Андрей Cooley on 07-12-2022 Miscellaneous Test See comment [facility] Comment on above: TEST RESULT LIMITSCarbamazepine(Tegretol),SCarbamazepine(Tegretol), S 6.3 ug/mL 4.0-12.0 In conjunction with other antiepileptic drugs Therapeutic 4.0 - 8.0 Toxicity 9.0 - 12.0 Carbamazepine alone Therapeutic 8.0 - 12.0 Detection Limit = 2.0 <2.0 indicated None Detected ____ TESTING PERFORMED AT [facility]. ORIGINAL REPORT ON FILE IN LAB CONTAINS ADDITIONAL TEST SITE INFORMATION. Basophil percentageOrdered B y: Андрей Cooley on 06-14-2022 Bilirubin [Mass/Vol] 0.20 mg/dL 0.20-1.00 [facility] Comment on above: For patients on eltr ombopag therapy, use of Dimension [place] TBIL is not recommended. Chloride [Moles/Vol] 104 mmol/L 98-107 [facility] Cholesterol [Mass/Vol] 139 mg/dL <200 [facility] Comment on above: <200 mg/dL Desirable 200-240 mg/dL Borderline >240 mg/dL High Risk Glucose [Mass/Vol] 76 mg/dL 74-106 [facility] Potassium [Moles/Vol] 3.9 mmol/L 3.5-5.1 [facility] Protein [Mass/Vol] 6.4 g/dL 6.4-8.2 [facility] Sodium [Moles/Vol] 139 mmol/L 136-145 [facility] Triglyceride [Mass/Vol] 111 mg/dL <199 [facility] Comment on above: The drugs N-Acetylcy steine and Metamizole may falsely depress this assay.Serum Triglycerides Reference Interval Normal <150 mg/dL Borderline high 150 - 199 mg/dL High 200 - 499 mg/dL Very High > or = 500 mg/dL WBC (Bld) [#/Vol] 5.5 10*3/uL 4.4-11.0 [facility] Blood erythrocytes count (nu mber/volume)Ordered By: Андрей Cooley on 06-14-2022 RBC (Bld) [#/Vol] 4.57 10*6/uL 4.6-6.2 [facility] Blood hemoglobin measurement (mass/volume)Ordered By: Андрей Cooley on 06-14-2022 Hemoglobin (Bld) [Mass/Vol] 15.0 g/dL 13.0-16.5 [facility] Blood platelet mean volumeOr dered By: Андрей Cooley on 06-14-2022 Platelet mean volume (Bld) [Entitic vol] 10.0 fL 6.2-12.0 [facility] Determination of erythrocyte mean corpuscular volume (MCV)Ordered By: Андрей Cooley on 06-14-2022 MCV (RBC) [Entitic vol] 100.4 fL 80-94 [facility] Hematocrit Auto (Bld) [Volum e fraction]Ordered By: Андрей Cooley on 06-14-2022 Hematocrit (Bld) [Volume fraction] 45.9 % 40-54 [facility] Laboratory - Chemistry and C hemistry - challengeOrdered By: Андрей Cooley on 06-14-2022 ALP [Catalytic activity/Vol] 68 U/L 45-117 [facility] ALT [Catalytic activity/Vol] 31 U/L 16-61 [facility] CO2 [Moles/Vol] 31.0 mmol/L 21.0-32.0 [facility] Globulin (S) [Mass/Vol] 3.0 g/dL 2.2-4.2 [facility] Urea nitrogen/Creatinine [Mass ratio] 22.5 mg/mg 10-20 [facility] Laboratory - Hematology and Cell countsOrdered By: Андрей Cooley on 06-14-2022 Erythrocyte distribution width (RBC) [Entitic vol] 51.8 fL 35.1-43.9 [facility] Erythrocyte distribution width (RBC) [Ratio] 14.2 % 11.6-14.6 [facility] MCH (RBC) [Entitic mass] 32.8 pg 27.0-32.0 [facility] MCHC Auto (RBC) [Mass/Vol]Or dered By: Андрей Cooley on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 fraction]on 12-10-2021 Hematocrit (Bld) [Volume fraction] 38.5 % 40-54 [facility] Work Phone: [phone] INR in Blood by Coagulation assayon 12-10-2021 INR Coag (Bld) [Relative time] 1.6 {INR} [facility] Work Phone: Laboratory - Chemistry and C hemistry - challengeon 12-10-2021 CO2 [Moles/Vol] 26.0 mmol/L 21.0-32.0 [facility] Work Phone: Urea nitrogen/Creatinine [Mass ratio] 21.5 mg/mg 10-20 [facility] Work Phone: Laboratory - Coagulationon 0 12-10-2021 PT Coag (PPP) [Time] 18.3 s 11.7-14.9 [facility] Work Phone: Laboratory - Hematology and Cell countson 12-10-2021 Erythrocyte distribution width (RBC) [Entitic vol] 95.8 fL 35.1-43.9 [facility] Work Phone: Erythrocyte distribution width (RBC) [Ratio] 29.7 % 11.6-14.6 [facility] Work Phone: MCH (RBC) [Entitic mass] 27.4 pg 27.0-32.0 [facility] Work Phone: MCHC Auto (RBC) [Mass/Vol]on 12-10-2021 MCHC (RBC) [Mass/Vol] 29.9 g/dL 32-36 [facility] Work Phone: No Panel Informationon 12-10 Estimated GFR (MDRD) Amer 97 mL/min >60 [facility] Work Phone: Comment on above: GFR Calc Estimated GFR (MDRD) Non-Af Amer 80 mL/min >60 [facility] Work Phone: Comment on above: Non- GFR Calc Platelets bldon 12-10-2021 Platelets (Bld) [#/Vol] 327 10*3/uL 150-450 [facility] Work Phone: Serum or plasma calcium luis urement (mass/volume)on 12-10-2021 Calcium [Mass/Vol] 9.0 mg/dL 8.5-10.1 [facility] Work Phone: Serum or plasma creatinine m easurement (mass/volume)on 12-10-2021 Creatinine [Mass/Vol] 0.98 mg/dL 0.70-1.30 [facility] Work Phone: Comment on above: The validity of the calculated GFR & GFRAA in patients over 70 years has not been determined. Clinical correlation is essential. Serum or plasma urea nitroge n measurement (mass/volume)on 12-10-2021 Urea nitrogen [Mass/Vol] 21 mg/dL 7-18 [facility] Work Phone: Thin prep Papanicolaou smear with manual screeningon 12-10-2021 Thin prep Papanicolaou smear with manual screening 6 5-15 [facility] Work Phone: Basophil percentageon 2021 Chloride [Moles/Vol] 107 mmol/L 98-107 [facility] Work Phone: Glucose [Mass/Vol] 89 mg/dL 74-106 [facility] Work Phone: Potassium [Moles/Vol] 4.3 mmol/L 3.5-5.1 [facility] Work Phone: Sodium [Moles/Vol] 140 mmol/L 136-145 [facility] Work Phone: [phone] WBC (Bld) [#/Vol] 6.1 10*3/uL 4.4-11.0 [facility] Work Phone: Blood erythrocytes count (nu mber/volume)on 12-08-2021 RBC (Bld) [#/Vol] 3.96 10*6/uL 4.6-6.2 [facility] Work Phone: Blood hemoglobin measurement (mass/volume)on 12-08-2021 Hemoglobin (Bld) [Mass/Vol] 10.6 g/dL 13.0-16.5 [facility] Work Phone: Blood platelet mean volumeon 12-08-2021 Platelet mean volume (Bld) [Entitic vol] 10.8 fL 6.2-12.0 [facility] Work Phone: Determination of erythrocyte mean corpuscular volume (MCV)on 12-08-2021 MCV (RBC) [Entitic vol] 91.2 fL 80-94 [facility] Work Phone: Hematocrit Auto (Bld) [Volum e fraction]on 12-08-2021 Hematocrit (Bld) [Volume fraction] 36.1 % 40-54 [facility] Work Phone: INR in Blood by Coagulation assayon 12-08-2021 INR Coag (Bld) [Relative time] 1.5 {INR} [facility] Work Phone: Laboratory - Chemistry and C hemistry - challengeon 12-08-2021 CO2 [Moles/Vol] 27.0 mmol/L 21.0-32.0 [facility] Work Phone: Urea nitrogen/Creatinine [Mass ratio] 23.1 mg/mg 10-20 [facility] Work Phone: Laboratory - Coagulationon 0 12-08-2021 PT Coag (PPP) [Time] 17.5 s 11.7-14.9 [facility] Work Phone: Laboratory - Hematology and Cell countson 12-08-2021 Erythrocyte distribution width (RBC) [Entitic vol] 97.8 fL 35.1-43.9 [facility] Work Phone: Erythrocyte distribution width (RBC) [Ratio] 30.4 % 11.6-14.6 [facility] Work Phone: MCH (RBC) [Entitic mass] 26.8 pg 27.0-32.0 [facility] Work Phone: MCHC Auto (RBC) [Mass/Vol]on 12-08-2021 MCHC (RBC) [Mass/Vol] 29.4 g/dL 32-36 [facility] Work Phone: No Panel Informationon 12-08 Carbamazepine (Tegretol) Level 7.9 ug/mL 4.0-12.0 [facility] Work Phone: Estimated GFR (MDRD) Amer 90 mL/min >60 [facility] Work Phone: Comment on above: GFR Calc Estimated GFR (MDRD) Non-Af Amer 75 mL/min >60 [facility] Work Phone: Comment on above: Non- GFR Calc Platelets bldon 12-08-2021 Platelets (Bld) [#/Vol] 295 10*3/uL 150-450 [facility] Work Phone: Serum or plasma calcium luis urement (mass/volume)on 12-08-2021 Calcium [Mass/Vol] 8.8 mg/dL 8.5-10.1 [facility] Work Phone: Serum or plasma creatinine m easurement (mass/volume)on 12-08-2021 Creatinine [Mass/Vol] 1.04 mg/dL 0.70-1.30 [facility] Work Phone: Comment on above: The validity of the calculated GFR & GFRAA in patients over 70 years has not been determined. Clinical correlation is essential. Serum or plasma urea nitroge n measurement (mass/volume)on 12-08-2021 Urea nitrogen [Mass/Vol] 24 mg/dL 7-18 [facility] Work Phone: Thin prep Papanicolaou smear with manual screeningon 12-08-2021 Thin prep Papanicolaou smear with manual screening 6 5-15 [facility] Work Phone: Absolute lymphocyte counton 12-06-2021 Lymphocytes Auto (Unsp spec) [#/Vol] 1.64 10*3/uL 0.83-4.51 [facility] Work Phone: Basophil percentageon 2021 Basophils/100 WBC (Bld) 1.6 % 0-1 [facility] Work Phone: Chloride [Moles/Vol] 106 mmol/L 98-107 [facility] Work Phone: Eosinophils/100 WBC (Bld) 4.0 % 0-5 [facility] Work Phone: Glucose [Mass/Vol] 75 mg/dL 74-106 [facility] Work Phone: Neutrophils (Bld) [#/Vol] 4.5 10*3/uL 2.0-7.7 [facility] Work Phone: Neutrophils/100 WBC (Bld) 64.0 % 47-70 [facility] Work Phone: Potassium [Moles/Vol] 4.6 mmol/L 3.5-5.1 [facility] Work Phone: Sodium [Moles/Vol] 138 mmol/L 136-145 [facility] Work Phone: WBC (Bld) [#/Vol] 7.0 10*3/uL 4.4-11.0 [facility] Work Phone: Blood erythrocytes count (nu mber/volume)on 12-06-2021 RBC (Bld) [#/Vol] 3.83 10*6/uL 4.6-6.2 [facility] Work Phone: Blood hemoglobin measurement (mass/volume)on 12-06-2021 Hemoglobin (Bld) [Mass/Vol] 10.2 g/dL 13.0-16.5 [facility] Work Phone: Blood lymphocytes/100 leukoc yteson 12-06-2021 Lymphocytes/100 WBC (Bld) 23.6 % 19-41 [facility] Work Phone: Blood monocytes/100 leukocyt eson 12-06-2021 Monocytes/100 WBC (Bld) 6.5 % 0-10 [facility] Work Phone: Blood platelet adequacy dete ction by light microscopyon 12-06-2021 Platelets LM Ql (Bld) ADEQUATE ADEQ [facility] Work Phone: Blood platelet mean volumeon 12-06-2021 Platelet mean volume (Bld) [Entitic vol] 10.7 fL 6.2-12.0 [facility] Work Phone: Blood poikilocytosis detecti on by light microscopyon 12-06-2021 Poikilocytosis LM Ql (Bld) 1+ [facility] Work Phone: Determination of erythrocyte mean corpuscular volume (MCV)on 12-06-2021 MCV (RBC) [Entitic vol] 92.7 fL 80-94 [facility] Work Phone: Hematocrit Auto (Bld) [Volum e fraction]on 12-06-2021 Hematocrit (Bld) [Volume fraction] 35.5 % 40-54 [facility] Work Phone: Hypochromatic red blood cell detectionon 12-06-2021 Hypochromia Ql (Bld) 1+ [facility] Work Phone: INR in Blood by Coagulation assayon 12-06-2021 INR Coag (Bld) [Relative time] 1.2 {INR} [facility] Work Phone: Laboratory - Chemistry and C hemistry - challengeon 12-06-2021 CO2 [Moles/Vol] 25.0 mmol/L 21.0-32.0 [facility] Work Phone: Urea nitrogen/Creatinine [Mass ratio] 17.1 mg/mg 10- [facility] Work Phone: Laboratory - Coagulationon 0 12-06-2021 PT Coag (PPP) [Time] 14.9 s 11.7-14.9 [facility] Work Phone: Laboratory - Hematology and Cell countson 12-06-2021 Anisocytosis Ql (Bld) 4+ [facility] Work Phone: Erythrocyte distribution width (RBC) [Entitic vol] 100.5 fL 35.1-43.9 [facility] Work Phone: Erythrocyte distribution width (RBC) [Ratio] 30.6 % 11.6-14.6 [facility] Work Phone: Immature granulocytes/100 WBC (Bld) 0.300 % 0.0-0.9 [facility] Work Phone: Comment on above: IG% - Immature Granu locytes (promyelocytes, myelocytes and metamyelocytes) > 1% indicates that a LEFT SHIFT is Present. MCH (RBC) [Entitic mass] 26.6 pg 27.0-32.0 [facility] Work Phone: Nucleated RBC/100 WBC (Bld) [Ratio] 0 % 0-5 [facility] Work Phone: MCHC Auto (RBC) [Mass/Vol]on 12-06-2021 MCHC (RBC) [Mass/Vol] 28.7 g/dL 32-36 [facility] Work Phone: Macrocytes detectionon 12-06 Macrocytes Ql (Bld) 1+ [facility] Work [facility]: No Panel Informationon 12-06 Estimated GFR (MDRD) Amer 89 mL/min >60 [facility] Work Phone: Comment on above: GFR Calc Estimated GFR (MDRD) Non-Af Amer 74 mL/min >60 [facility] Work Phone: Comment on above: Non- GFR Calc Ovalocyte detectionon 2021 Ovalocytes LM Ql (Bld) 2+ [facility] Work Phone: Platelets bldon 12-06-2021 Platelets (Bld) [#/Vol] 265 10*3/uL 150-450 [facility] Work Phone: Serum or plasma calcium luis urement (mass/volume)on 12-06-2021 Calcium [Mass/Vol] 8.9 mg/dL 8.5-10.1 [facility] Work Phone: [phone] Serum or plasma creatinine m easurement (mass/volume)on 12-06-2021 Creatinine [Mass/Vol] 1.05 mg/dL 0.70-1.30 [facility] Work Phone: Comment on above: The validity of the calculated GFR & GFRAA in patients over 70 years has not been determined. Clinical correlation is essential. Serum or plasma urea nitroge n measurement (mass/volume)on 12-06-2021 Urea nitrogen [Mass/Vol] 18 mg/dL 01-03 [facility] Work Phone: Teardrop cell detectionon Dacrocytes LM Ql (Bld) 1+ [facility] Work Phone: [phone] Thin prep Papanicolaou smear with manual screeningon 12-06-2021 Thin prep Papanicolaou smear with manual screening 1+ [facility] Work Phone: [phone] Thin prep Papanicolaou smear with manual screening 7 - [facility] Work Phone: [phone] Basophil percentageon 2021 Basophil percentage 0-5 SEEN /hpf 0-5 [facility] Work Phone: Bilirubin Test strip Ql (U)o n 12-04-2021 Bilirubin Ql (U) Negative Negative [facility] Work Phone: Ketones Test strip Ql (U)on 12-04-2021 Ketones Ql (U) Negative Negative [facility] Work Phone: [phone] Mucus LM Ql (Urine sed)on Mucus Ql (Urine sed) 0 SEEN /hpf [facility] Work Phone: Nitrite Test strip Ql (U)on 12-04-2021 Nitrite Ql (U) Negative Negative [facility] Work Phone: Protein Test strip Ql (U)on 12-04-2021 Protein Ql (U) Negative Negative [facility] Work Phone: Squamous epithelial cells de tection in urine sediment by light microscopyon 12-04-2021 Epithelial cells.squamous LM Ql (Urine sed) 0-5 SEEN /hpf 0-5 [facility] Work Phone: Urine blood detectionon 11-17 RBC Ql (U) 25 /ul Negative [facility] Work Phone: RBC Ql (U) 0 SEEN /hpf 0-5 [facility] Work Phone: Urine clarityon 12-04-2021 Clarity (U) Cloudy Clear [facility] Work Phone: Urine color determinationon 12-04-2021 Color (U) Yellow Yellow [facility] Work Phone: Urine glucose detectionon Glucose Ql (U) Normal mg/dl Normal [facility] Work Phone: Urine leukocyte esterase det ection by dipstickon 12-04-2021 Leukocyte esterase Test strip Ql (U) 500 /ul Negative [facility] Work Phone: Urine pHon 12-04-2021 pH (U) 6.0 [pH] 5.0 - 8.0 [facility] Work Phone: Urine sediment bacteria coun t by microscopy (number/high power field)on 12-04-2021 Bacteria LM.HPF (Urine sed) [#/Area] 4 /[HPF] None Seen [facility] Work Phone: Urine specific gravity measu rementon 12-04-2021 Specific gravity (U) [Rel density] 1.015 1.002-1.030 [facility] Work Phone: [phone] Urobilinogen Auto test strip Ql (U)on 12-04-2021 Urobilinogen Ql (U) Normal mg/dl Normal [facility] Work Phone: Basophil percentageon 2021 Chloride [Moles/Vol] 105 mmol/L 98-[address] [facility] Work Phone: Glucose [Mass/Vol] 96 mg/dL 74-106 [facility] Work Phone: Potassium [Moles/Vol] 3.9 mmol/L 3.5-5.1 [facility] Work Phone: Sodium [Moles/Vol] 138 mmol/L 136-145 [facility] Work Phone: WBC (Bld) [#/Vol] 7.5 10*3/uL 4.4-11.0 [facility] Work Phone: Blood erythrocytes count (nu mber/volume)on 12-01-2021 RBC (Bld) [#/Vol] 3.41 10*6/uL 4.6-6.2 [facility] Work Phone: Blood hemoglobin measurement (mass/volume)on 12-01-2021 Hemoglobin (Bld) [Mass/Vol] 8.3 g/dL 13.0-16.5 [facility] Work Phone: Blood platelet mean volumeon 12-01-2021 Platelet mean volume (Bld) [Entitic vol] 11.1 fL 6.2-12.0 [facility] Work Phone: Determination of erythrocyte mean corpuscular volume (MCV)on 12-01-2021 MCV (RBC) [Entitic vol] 86.2 fL 80-94 [facility] Work Phone: Hematocrit Auto (Bld) [Volum e fraction]on 12-01-2021 Hematocrit (Bld) [Volume fraction] 29.4 % 40-54 [facility] Work Phone: INR in Blood by Coagulation assayon 12-01-2021 INR Coag (Bld) [Relative time] 1.4 {INR} [facility] Work Phone: Laboratory - Chemistry and C hemistry - challengeon 12-01-2021 CO2 [Moles/Vol] 26.0 mmol/L 21.0-32.0 [facility] Work Phone: Urea nitrogen/Creatinine [Mass ratio] 14.6 mg/mg 10-20 [facility] Work Phone: Laboratory - Coagulationon 0 12-01-2021 PT Coag (PPP) [Time] 16.9 s 11.7-14.9 [facility] Work Phone: Laboratory - Hematology and Cell countson 12-01-2021 Erythrocyte distribution width (RBC) [Entitic vol] 68.4 fL 35.1-43.9 [facility] Work Phone: Erythrocyte distribution width (RBC) [Ratio] 26.7 % 11.6-14.6 [facility] Work Phone: MCH (RBC) [Entitic mass] 24.3 pg 27.0-32.0 [facility] Work Phone: MCHC Auto (RBC) [Mass/Vol]on 12-01-2021 MCHC (RBC) [Mass/Vol] 28.2 g/dL 32-36 [facility] Work Phone: No Panel Informationon 12-01 Estimated GFR (MDRD) Amer 99 mL/min >60 [facility] Work Phone: Comment on above: GFR Calc Estimated GFR (MDRD) Non-Af Amer 82 mL/min >60 [facility] Work Phone: Comment on above: Non- GFR Calc Platelets bldon 12-01-2021 Platelets (Bld) [#/Vol] 307 10*3/uL 150-450 [facility] Work Phone: Serum or plasma calcium luis urement (mass/volume)on 12-01-2021 Calcium [Mass/Vol] 9.5 mg/dL 8.5-10.1 [facility] Work Phone: [phone] Serum or plasma creatinine m easurement (mass/volume)on 12-01-2021 Creatinine [Mass/Vol] 0.96 mg/dL 0.70-1.30 [facility] Work Phone: Comment on above: The validity of the calculated GFR & GFRAA in patients over 70 years has not been determined. Clinical correlation is essential. Serum or plasma urea nitroge n measurement (mass/volume)on 12-01-2021 Urea nitrogen [Mass/Vol] 14 mg/dL 7-18 [facility] Work Phone: [phone] Thin prep Papanicolaou smear with manual screeningon 12-01-2021 Thin prep Papanicolaou smear with manual screening 7 -15 [facility] Work Phone: Absolute lymphocyte counton 11-30-2021 Lymphocytes Auto (Unsp spec) [#/Vol] 1.13 10*3/uL 0.83-4.51 [facility] Work Phone: Basophil percentageon 2021 Basophil percentage 3.4 mg/dL 2.5-4.9 [facility] Work [facility]: Basophils/100 WBC (Bld) 1.5 % 0-1 [facility] Work Phone: Chloride [Moles/Vol] 107 mmol/L 98-107 [facility] Work Phone: Eosinophils/100 WBC (Bld) 3.5 % 0-5 [facility] Work Phone: Glucose [Mass/Vol] 90 mg/dL 74-106 [facility] Work Phone: Neutrophils (Bld) [#/Vol] 6.9 10*3/uL 2.0-7.7 [facility] Work Phone: Neutrophils/100 WBC (Bld) 74.4 % 47-70 [facility] Work Phone: Potassium [Moles/Vol] 3.4 mmol/L 3.5-5.1 [facility] Work Phone: Sodium [Moles/Vol] 140 mmol/L 136-145 [facility] Work Phone: WBC (Bld) [#/Vol] 9.3 10*3/uL 4.4-11.0 [facility] Work Phone: Blood erythrocytes count (nu mber/volume)on 11-30-2021 RBC (Bld) [#/Vol] 3.21 10*6/uL 4.6-6.2 [facility] Work Phone: Blood hemoglobin measurement (mass/volume)on 11-30-2021 Hemoglobin (Bld) [Mass/Vol] 7.8 g/dL 13.0-16.5 [facility] Work Phone: Blood lymphocytes/100 leukoc yteson 11-30-2021 Lymphocytes/100 WBC (Bld) 12.2 % 19-41 [facility] Work Phone: Blood monocytes/100 leukocyt eson 11-30-2021 Monocytes/100 WBC (Bld) 7.0 % 0-10 [facility] Work Phone: Blood platelet mean volumeon 11-30-2021 Platelet mean volume (Bld) [Entitic vol] 10.8 fL 6.2-12.0 [facility] Work Phone: Blood polychromasia detectio n by light microscopyon 11-30-2021 Polychromasia LM Ql (Bld) 2+ [facility] Work Phone: Determination of erythrocyte mean corpuscular volume (MCV)on 11-30-2021 MCV (RBC) [Entitic vol] 83.8 fL 80-94 [facility] Work Phone: Hematocrit Auto (Bld) [Volum e fraction]on 11-30-2021 Hematocrit (Bld) [Volume fraction] 26.9 % 40-54 [facility] Work Phone: INR in Blood by Coagulation assayon 11-30-2021 INR Coag (Bld) [Relative time] 1.4 {INR} [facility] Work Phone: Laboratory - Chemistry and C hemistry - challengeon 11-30-2021 CO2 [Moles/Vol] 26.0 mmol/L 21.0-32.0 [facility] Work Phone: Urea nitrogen/Creatinine [Mass ratio] 12.0 mg/mg 10-20 [facility] Work Phone: Laboratory - Coagulationon 0 11-30-2021 PT Coag (PPP) [Time] 17.1 s 11.7-14.9 [facility] Work Phone: Laboratory - Hematology and Cell countson 11-30-2021 Anisocytosis Ql (Bld) 2+ [facility] Work Phone: Erythrocyte distribution width (RBC) [Entitic vol] 64.9 fL 35.1-43.9 [facility] Work Phone: [phone] Erythrocyte distribution width (RBC) [Ratio] 24.2 % 11.6-14.6 [facility] Work Phone: [phone] Immature granulocytes/100 WBC (Bld) 1.400 % 0.0-0.9 [facility] Work Phone: [phone] Comment on above: IG% - Immature Granu locytes (promyelocytes, myelocytes and metamyelocytes) > 1% indicates that a LEFT SHIFT is Present. MCH (RBC) [Entitic mass] 24.3 pg 27.0-32.0 [facility] Work Phone: [phone] Nucleated RBC/100 WBC (Bld) [Ratio] 2.7 % 0-5 [facility] Work Phone: [phone] MCHC Auto (RBC) [Mass/Vol]on 11-30-2021 MCHC (RBC) [Mass/Vol] 29.0 g/dL 32-36 [facility] Work Phone: [phone] Panel Informationon 11-30 Estimated Creatinine Clearance Calc 70.99 ml/min [facility] Work Phone: [phone] Estimated GFR (MDRD) Amer 105 mL/min >60 [facility] Work Phone: [phone] Comment on above: GFR Calc Estimated GFR (MDRD) Non-Af Amer 87 mL/min >60 [facility] Work Phone: [phone] Comment on above: Non- GFR Calc Anti-Gliadin IgA Antibody 3 units 0-19 [facility] Work Phone: [phone] Comment on above: Negative 0 - 19 Weak Positive 20 - 30 Moderate to Strong Positive >30 Anti-Gliadin IgG Antibody 1 units 0-19 [facility] Work Phone: [phone] Comment on above: Negative 0 - 19 Weak Positive 20 - 30 Moderate to Strong Positive >30 Endomysial IgA Antibody Negative Negative [facility] Work Phone: [phone] Tissue Transglutaminase IgG Ab <2 U/mL 0-5 [facility] Work Phone: Comment on above: Negative 0 - 5 Weak Positive 6 - 9 Positive >9 Platelets bldon 11-30-2021 Platelets (Bld) [#/Vol] 305 10*3/uL 150-450 [facility] Work Phone: Serum IgA measurement (units /volume)on 11-30-2021 IgA Qn (S) 128 mg/dL 61-437 [facility] Work Phone: Comment on above: Performed at: [facility] [employer] [id number] Director: Дмитрий Tran PhD, Phone: [phone] Serum or plasma calcium luis urement (mass/volume)on 11-30-2021 Calcium [Mass/Vol] 8.9 mg/dL 8.5-10.1 [facility] Work Phone: Serum or plasma creatinine m easurement (mass/volume)on 11-30-2021 Creatinine [Mass/Vol] 0.91 mg/dL 0.70-1.30 [facility] Work Phone: Comment on above: The validity of the calculated GFR & GFRAA in patients over 70 years has not been determined. Clinical correlation is essential. Serum or plasma urea nitroge n measurement (mass/volume)on 11-30-2021 Urea nitrogen [Mass/Vol] 11 mg/dL 7-18 [facility] Work Phone: Serum tissue transglutaminas e IgA antibody assay (units/volume)on 11-30-2021 tTG IgA Qn (S) <2 U/mL 0-3 [facility] Work Phone: Comment on above: Negative 0 - 3 Weak Positive 4 - 10 Positive >10 Tissue Transglutaminase (tTG) has been identified as the endomysial antigen. Studies have demonstr- ated that endomysial IgA antibodies have over 99% specificity for gluten sensitive enteropathy. Thin prep Papanicolaou smear with manual screeningon 11-30-2021 Thin prep Papanicolaou smear with manual screening 7 5-15 [facility] Work Phone: Blood platelet adequacy dete ction by light microscopyon 11-29-2021 Platelets LM Ql (Bld) ADEQUATE ADEQ [facility] Work Phone: Hypochromatic red blood cell detectionon 11-29-2021 Hypochromia Ql (Bld) 1+ [facility] Work Phone: Serum or plasma ferritin arlyn surement (mass/volume)on 11-29-2021 Ferritin [Mass/Vol] 157 ng/mL 26-388 [facility] Work Phone: Blood manual differential co mment interpretation (narrative result)on 11-28-2021 Manual differential comment Ghassan (Bld) [Interp] SCANNED [facility] Work Phone: Laboratory - Chemistry and C hemistry - challengeon 11-28-2021 Magnesium [Mass/Vol] 2.0 mg/dL 1.6-2.6 [facility] Work Phone: Macrocytes detectionon 11-28 Macrocytes Ql (Bld) RARE [facility] Work Phone: Ovalocyte detectionon 2021 Ovalocytes LM Ql (Bld) 1+ [facility] Work Phone: Thin prep Papanicolaou smear with manual screeningon 11-28-2021 Thin prep Papanicolaou smear with manual screening 1+ [facility] Work Phone: Laboratory - Chemistry and C hemistry - challengeon 11-26-2021 Cobalamin (Vitamin B12) [Mass/Vol] 403 pg/mL 211-911 [facility] Work Phone: No Panel Informationon 11-26 Troponin I High Sensitivity 13 pg/mL 3.0-78.0 [facility] Work Phone: Comment on above: Please Note: New [place] t Units and Gender Specific Reference Ranges. For more information see Policy Stat Procedure [place] High Sensitivity Troponin (TNIH) and attachments. Absolute lymphocyte counton 11-25-2021 Lymphocytes Auto (Unsp spec) [#/Vol] 0.81 10*3/uL 0.83-4.51 [facility] Work Phone: Basophil percentageon 2021 Basophil percentage 0 SEEN /hpf 0-5 [facility] Work Phone: Basophils/100 WBC (Bld) 0.7 % 0-1 [facility] Work Phone: Eosinophils/100 WBC (Bld) 0.1 % 0-5 [facility] Work [phone] Neutrophils (Bld) [#/Vol] 5.8 10*3/uL 2.0-7.7 [facility] Work Phone: Neutrophils/100 WBC (Bld) 80.9 % 47-70 [facility] Work Phone: WBC (Bld) [#/Vol] 7.1 10*3/uL 4.4-11.0 [facility] Work Phone: Bilirubin [Mass/Vol] 0.20 mg/dL 0.20-1.00 [facility] Work Phone: Comment on above: For patients on eltr ombopag therapy, use of Dimension [place] TBIL is not recommended. Chloride [Moles/Vol] 101 mmol/L 98-107 [facility] Work Phone: Glucose [Mass/Vol] 113 mg/dL 74-106 [facility] Work Phone: Comment on above: Fasting Glucose resu lt from 100 to 125 mg/dL suggests IMPAIRED HOMEOSTASIS per A.D.A. criteria. Potassium [Moles/Vol] 4.2 mmol/L 3.5-5.1 [facility] Work Phone: Protein [Mass/Vol] 6.8 g/dL 6.4-8.2 [facility] Work Phone: Sodium [Moles/Vol] 133 mmol/L 136-145 [facility] Work Phone: Bilirubin Test strip Ql (U)o n 11-25-2021 Bilirubin Ql (U) Negative Negative [facility] Work Phone: Blood erythrocytes count (nu mber/volume)on 11-25-2021 RBC (Bld) [#/Vol] 2.36 10*6/uL 4.6-6.2 [facility] Work Phone: Blood hemoglobin measurement (mass/volume)on 11-25-2021 Hemoglobin (Bld) [Mass/Vol] 4.4 g/dL 13.0-16.5 [facility] Work Phone: Comment on above: CRITICAL VALUE VERIF IED. CALLED TO [id number] Kateryna Horn.RESULTS READ BACK BY SAME . Blood lymphocytes/100 leukoc yteson 11-25-2021 Lymphocytes/100 WBC (Bld) 11.4 % 19-41 [facility] Work Phone: Blood manual differential co mment interpretation (narrative result)on 11-25-2021 Manual differential comment Ghassan (Bld) [Interp] SCANNED [facility] Work Phone: Comment on above: ANEMIA NOTED Blood monocytes/100 leukocyt eson 11-25-2021 Monocytes/100 WBC (Bld) 6.3 % 0-10 [facility] Work Phone: Blood platelet mean volumeon 11-25-2021 Platelet mean volume (Bld) [Entitic vol] 10.2 fL 6.2-12.0 [facility] Work Phone: Determination of erythrocyte mean corpuscular volume (MCV)on 11-25-2021 MCV (RBC) [Entitic vol] 71.6 fL 80-94 [facility] Work Phone: Hematocrit Auto (Bld) [Volum e fraction]on 11-25-2021 Hematocrit (Bld) [Volume fraction] 16.9 % 40-54 [facility] Work Phone: Hemoglobin in reticulocytes (mass per reticulocyte)on 11-25-2021 Hemoglobin (Reticulocytes) [Entitic mass] 15.0 pg 30-35 [facility] Work Phone: Hypochromatic red blood cell detectionon 11-25-2021 Hypochromia Ql (Bld) 1+ [facility] Work Phone: INR in Blood by Coagulation assayon 11-25-2021 INR Coag (Bld) [Relative time] 5.4 {INR} [facility] Work Phone: Comment on above: CRITICAL VALUE VERIF IED. CALLED TO [id number] Kateryna Horn.RESULTS READ BACK BY SAME . Iron measurement (mass/mass) on 11-25-2021 Iron (Unsp spec) [Mass/Mass] 10 ug/dL 65-175 [facility] Work Phone: Ketones Test strip Ql (U)on 11-25-2021 Ketones Ql (U) Negative Negative [facility] Work Phone: Laboratory - Chemistry and C hemistry - challengeon 11-25-2021 ALP [Catalytic activity/Vol] 54 U/L 45-117 [facility] Work Phone: ALT [Catalytic activity/Vol] 20 U/L 16-61 [facility] Work Phone: CO2 [Moles/Vol] 23.0 mmol/L 21.0-32.0 [facility] Work Phone: Globulin (S) [Mass/Vol] 3.1 g/dL 2.2-4.2 [facility] Work Phone: Urea nitrogen/Creatinine [Mass ratio] 16.7 mg/mg 10-20 [facility] Work Phone: Laboratory - Coagulationon 0 11-25-2021 PT Coag (PPP) [Time] 49.2 s 11.7-14.9 [facility] Work Phone: Laboratory - Hematology and Cell countson 11-25-2021 Erythrocyte distribution width (RBC) [Entitic vol] 48.7 fL 35.1-43.9 [facility] Work Phone: Erythrocyte distribution width (RBC) [Ratio] 18.6 % 11.6-14.6 [facility] Work Phone: [phone] Immature granulocytes/100 WBC (Bld) 0.600 % 0.0-0.9 [facility] Work Phone: [phone] Comment on above: IG% - Immature Granu locytes (promyelocytes, myelocytes and metamyelocytes) > 1% indicates that a LEFT SHIFT is Present. MCH (RBC) [Entitic mass] 18.6 pg 27.0-32.0 [facility] Work Phone: [phone] Nucleated RBC/100 WBC (Bld) [Ratio] 0.6 % 0-5 [facility] Work Phone: [phone] Lower GI hemoglobin IA Ql (S tl)on 11-25-2021 Stool Occult Blood (LACI) Positive [facility] Work Phone: [phone] MCHC Auto (RBC) [Mass/Vol]on 11-25-2021 MCHC (RBC) [Mass/Vol] 26.0 g/dL 32-36 [facility] Work Phone: Mucus LM Ql (Urine sed)on Mucus Ql (Urine sed) 0 SEEN /hpf [facility] Work Phone: [phone] Nitrite Test strip Ql (U)on 11-25-2021 Nitrite Ql (U) Negative Negative [facility] Work Phone: [phone] Panel Informationon 11-25 Immature Reticulocyte Fraction 25.00 % 3.00-15.90 [facility] Work Phone: [phone] Reticulocyte Count 2.10 % 0.5-1.5 [facility] Work Phone: [phone] Estimated Creatinine Clearance Calc 44.86 ml/min [facility] Work Phone: [phone] Estimated GFR (MDRD) Amer 62 mL/min >60 [facility] Work Phone: [phone] Comment on above: GFR Calc Estimated GFR (MDRD) Non-Af Amer 51 mL/min >60 [facility] Work Phone: Comment on above: Non- GFR Calc Total Iron Binding Capacity 466 ug/dL 250-450 [facility] Work Phone: [phone] Platelets bldon 11-25-2021 Platelets (Bld) [#/Vol] 398 10*3/uL 150-450 [facility] Work Phone: Protein Test strip Ql (U)on 11-25-2021 Protein Ql (U) Negative Negative [facility] Work Phone: Review by pathologiston Pathologist review Ghassan (Unsp spec) [Interp] Lena gardner [facility] Work Phone: [phone] Pathologist review Ghassan (Unsp spec) [Interp] Reviewed [facility] Work Phone: [phone] Comment on above: Previous reported re sult: Lena gardner Edited by: JF on 11/26/21:1239Severe Microcytic anemia.Clinical correlation necessary.Sebastian Gonzalez M.D. 11/26/21 AMENDED REPORT 11/26/21 1239 PATH REV previously reported as: October jj Serum or plasma albumin luis urement (mass/volume)on 11-25-2021 Albumin [Mass/Vol] 3.7 g/dL 3.2-5.0 [facility] Work Phone: [phone] Serum or plasma albumin/glob ulin mass ratioon 11-25-2021 Albumin/Globulin [Mass ratio] 1.2 {ratio} 0.9-2.4 [facility] Work Phone: [phone] Serum or plasma calcium luis urement (mass/volume)on 11-25-2021 Calcium [Mass/Vol] 8.2 mg/dL 8.5-10.1 [facility] Work Phone: [phone] Serum or plasma creatinine m easurement (mass/volume)on 11-25-2021 Creatinine [Mass/Vol] 1.44 mg/dL 0.70-1.30 [facility] Work Phone: [phone] Comment on above: The validity of the calculated GFR & GFRAA in patients over 70 years has not been determined. Clinical correlation is essential. Serum or plasma ferritin arlyn surement (mass/volume)on 11-25-2021 Ferritin [Mass/Vol] 5 ng/mL 26-388 [facility] Work Phone: Serum or plasma folate measu rement (mass/volume)on 11-25-2021 Folate [Mass/Vol] 12.90 ng/mL 3.1-55.4 [facility] Work Phone: Serum or plasma iron saturat ion measurement (mass fraction)on 11-25-2021 Iron saturation [Mass fraction] 2.1 % 15.0-55.0 [facility] Work Phone: Serum or plasma urea nitroge n measurement (mass/volume)on 11-25-2021 Urea nitrogen [Mass/Vol] 24 mg/dL 7-18 [facility] Work Phone: [phone] Squamous epithelial cells de tection in urine sediment by light microscopyon 11-25-2021 Epithelial cells.squamous LM Ql (Urine sed) 0 SEEN /hpf 0-5 [facility] Work Phone: Thin prep Papanicolaou smear with manual screeningon 11-25-2021 Thin prep Papanicolaou smear with manual screening 10 U/L 15-37 [facility] Work Phone: [phone] Thin prep Papanicolaou smear with manual screening 9 5-15 [facility] Work Phone: Urine blood detectionon 06- RBC Ql (U) 50 /ul Negative [facility] Work Phone: RBC Ql (U) 5-10 SEEN /hpf 0-5 [facility] Work Phone: Urine clarityon 11-25-2021 Clarity (U) Clear Clear [facility] Work Phone: Urine color determinationon 11-25-2021 Color (U) Straw Yellow [facility] Work Phone: Urine glucose detectionon Glucose Ql (U) Normal mg/dl Normal [facility] Work Phone: [phone] Urine leukocyte esterase det ection by dipstickon 11-25-2021 Leukocyte esterase Test strip Ql (U) Negative Negative [facility] Work Phone: Urine pHon 11-25-2021 pH (U) 7.0 [pH] 5.0 - 8.0 [facility] Work Phone: Urine sediment bacteria coun t by microscopy (number/high power field)on 11-25-2021 Bacteria LM.HPF (Urine sed) [#/Area] RARE /hpf None Seen [facility] Work Phone: Urine specific gravity measu rementon 11-25-2021 Specific gravity (U) [Rel density] 1.010 1.002-1.030 [facility] Work Phone: Urobilinogen Auto test strip Ql (U)on 11-25-2021 Urobilinogen Ql (U) Normal mg/dl Normal [facility] Work Phone: INR in Blood by Coagulation assayon 11-11-2021 INR Coag (Bld) [Relative time] 1.2 {INR} [facility] Laboratory - Coagulationon 0 11-11-2021 PT Coag (PPP) [Time] 15.1 s 11.7-14.9 [facility] Work Phone: No Panel Informationon 11-08 DLCO (ml/min/mmHg) 7.15 ml/min/mmHg [facility] DLCO/VA (ml/min/mmHg/L) 1.63 ml/min/mmHg/L [facility] [id number]% PRE (L/S) 0.30 L/S [facility] FEV1 PRE (L) 0.85 L [facility] FEV1/FVC PRE (%) 0.38 % [facility] FVC PRE (L) 2.23 L [facility] PEF PRE (L/S) 1.51 L/S [facility] VA (L) 4.38 L [facility] CNCOon 10-18-2021 CNCO Letter Text Letter Text Normal [facility] INR FINGERSTICK B/Oon 2021 INR Coag (Bld) [Relative time] 2.2 EXT [facility] Quality Check No [facility] Absolute lymphocyte counton 10-08-2021 Lymphocytes Auto (Unsp spec) [#/Vol] 1.26 10*3/uL 0.83-4.51 [facility] Work Phone: Basophil percentageon 2021 Basophil percentage 10-25 SEEN /hpf 0-5 [facility] Work Phone: Basophils/100 WBC (Bld) 1.3 % 0-1 [facility] Work Phone: Bilirubin [Mass/Vol] 0.30 mg/dL 0.20-1.00 [facility] Work Phone: Comment on above: For patients on eltr ombopag therapy, use of Dimension [place] TBIL is not recommended. Chloride [Moles/Vol] 105 mmol/L 98-107 [facility] Work Phone: Eosinophils/100 WBC (Bld) 0.5 % 0-5 [facility] Work Phone: Glucose [Mass/Vol] 99 mg/dL 74-106 [facility] Work Phone: Neutrophils (Bld) [#/Vol] 4.3 10*3/uL 2.0-7.7 [facility] Work Phone: Neutrophils/100 WBC (Bld) 70.4 % 47-70 [facility] Work Phone: Potassium [Moles/Vol] 3.7 mmol/L 3.5-5.1 [facility] Work Phone: Protein [Mass/Vol] 7.5 g/dL 6.4-8.2 [facility] Work Phone: Sodium [Moles/Vol] 138 mmol/L 136-145 [facility] Work Phone: WBC (Bld) [#/Vol] 6.1 10*3/uL 4.4-11.0 [facility] Work Phone: Bilirubin Test strip Ql (U)o n 10-08-2021 Bilirubin Ql (U) Negative Negative [facility] Work Phone: Blood erythrocytes count (nu mber/volume)on 10-08-2021 RBC (Bld) [#/Vol] 3.87 10*6/uL 4.6-6.2 [facility] Work Phone: Blood hemoglobin measurement (mass/volume)on 10-08-2021 Hemoglobin (Bld) [Mass/Vol] 8.3 g/dL 13.0-16.5 [facility] Work Phone: Blood lymphocytes/100 leukoc yteson 10-08-2021 Lymphocytes/100 WBC (Bld) 20.5 % 19-41 [facility] Work Phone: Blood monocytes/100 leukocyt eson 10-08-2021 Monocytes/100 WBC (Bld) 7.0 % 0-10 [facility] Work Phone: Blood platelet mean volumeon 10-08-2021 Platelet mean volume (Bld) [Entitic vol] 10.1 fL 6.2-12.0 [facility] Work Phone: Determination of erythrocyte mean corpuscular volume (MCV)on 10-08-2021 MCV (RBC) [Entitic vol] 74.7 fL 80-94 [facility] Work Phone: Hematocrit Auto (Bld) [Volum e fraction]on 10-08-2021 Hematocrit (Bld) [Volume fraction] 28.9 % 40-54 [facility] Work Phone: INR in Blood by Coagulation assayon 10-08-2021 INR Coag (Bld) [Relative time] 2.4 {INR} [facility] Work Phone: Ketones Test strip Ql (U)on 10-08-2021 Ketones Ql (U) Negative Negative [facility] Work Phone: Laboratory - Chemistry and C hemistry - challengeon 10-08-2021 ALP [Catalytic activity/Vol] 74 U/L 45-117 [facility] Work Phone: ALT [Catalytic activity/Vol] 21 U/L 16-61 [facility] Work Phone: [phone] CO2 [Moles/Vol] 30.0 mmol/L 21.0-32.0 [facility] Work Phone: [phone] Globulin (S) [Mass/Vol] 3.7 g/dL 2.2-4.2 [facility] Work Phone: [phone] Lipase [Catalytic activity/Vol] 93 U/L 73-393 [facility] Work Phone: [phone] Urea nitrogen/Creatinine [Mass ratio] 20.2 mg/mg 10-20 [facility] Work Phone: [phone] Laboratory - Coagulationon 0 10-08-2021 PT Coag (PPP) [Time] 25.7 s 11.7-14.9 [facility] Work Phone: [phone] Laboratory - Hematology and Cell countson 10-08-2021 Erythrocyte distribution width (RBC) [Entitic vol] 50.4 fL 35.1-43.9 [facility] Work Phone: [phone] Erythrocyte distribution width (RBC) [Ratio] 18.6 % 11.6-14.6 [facility] Work Phone: [phone] Immature granulocytes/100 WBC (Bld) 0.300 % 0.0-0.9 [facility] Work Phone: [phone] Comment on above: IG% - Immature Granu locytes (promyelocytes, myelocytes and metamyelocytes) > 1% indicates that a LEFT SHIFT is Present. MCH (RBC) [Entitic mass] 21.4 pg 27.0-32.0 [facility] Work Phone: [phone] Nucleated RBC/100 WBC (Bld) [Ratio] 0 % 0-5 [facility] Work Phone: [phone] MCHC Auto (RBC) [Mass/Vol]on 10-08-2021 MCHC (RBC) [Mass/Vol] 28.7 g/dL 32-36 [facility]: [phone] Mucus LM Ql (Urine sed)on Mucus Ql (Urine sed) 0 SEEN /hpf [facility] Work Phone: [phone] Nitrite Test strip Ql (U)on 10-08-2021 Nitrite Ql (U) Positive Negative [facility] Work Phone: No Panel Informationon 10-08 Estimated Creatinine Clearance Calc 68.72 ml/min [facility] Work Phone: [phone] Estimated GFR (MDRD) Amer 101 mL/min >60 [facility] Work Phone: [phone] Comment on above: GFR Calc Estimated GFR (MDRD) Non-Af Amer 84 mL/min >60 [facility] Work Phone: Comment on above: Non- GFR Calc Platelets bldon 10-08-2021 Platelets (Bld) [#/Vol] 349 10*3/uL 150-450 [facility] Work Phone: [phone] Protein Test strip Ql (U)on 10-08-2021 Protein Ql (U) 100 mg/dl Negative [facility] Work Phone: [phone] Serum or plasma albumin luis urement (mass/volume)on 10-08-2021 Albumin [Mass/Vol] 3.8 g/dL 3.2-5.0 [facility] Work Phone: [phone] Serum or plasma albumin/glob ulin mass ratioon 10-08-2021 Albumin/Globulin [Mass ratio] 1.0 {ratio} 0.9-2.4 [facility] Work Phone: [phone] Serum or plasma calcium luis urement (mass/volume)on 10-08-2021 Calcium [Mass/Vol] 9.1 mg/dL 8.5-10.1 [facility] Work Phone: [phone] Serum or plasma creatinine m easurement (mass/volume)on 10-08-2021 Creatinine [Mass/Vol] 0.94 mg/dL 0.70-1.30 [facility] Work Phone: [phone] Comment on above: The validity of the calculated GFR & GFRAA in patients over 70 years has not been determined. Clinical correlation is essential. Serum or plasma urea nitroge n measurement (mass/volume)on 10-08-2021 Urea nitrogen [Mass/Vol] 19 mg/dL 7-18 [facility] Work Phone: Squamous epithelial cells de tection in urine sediment by light microscopyon 10-08-2021 Epithelial cells.squamous LM Ql (Urine sed) 0-5 SEEN /hpf 0-5 [facility] Work Phone: Thin prep Papanicolaou smear with manual screeningon 10-08-2021 Thin prep Papanicolaou smear with manual screening 12 U/L 15-37 [facility] Work Phone: Thin prep Papanicolaou smear with manual screening 3 5-15 [facility] Work Phone: Urine blood detectionon 09-18 RBC Ql (U) 10 /ul Negative [facility] Work Phone: RBC Ql (U) 0 SEEN /hpf 0-5 [facility] Work Phone: Urine clarityon 10-08-2021 Clarity (U) Sl. Cloudy Clear [facility] Work Phone: Urine color determinationon 10-08-2021 Color (U) Yellow Yellow [facility] Work Phone: Urine glucose detectionon Glucose Ql (U) Normal mg/dl Normal [facility] Work Phone: Urine leukocyte esterase det ection by dipstickon 10-08-2021 Leukocyte esterase Test strip Ql (U) 500 /ul Negative [facility] Work Phone: Urine pHon 10-08-2021 pH (U) 6.5 [pH] 5.0 - 8.0 [facility] Work Phone: Urine sediment bacteria coun t by microscopy (number/high power field)on 10-08-2021 Bacteria LM.HPF (Urine sed) [#/Area] 3 /[HPF] None Seen [facility] Work Phone: Urine specific gravity measu rementon 10-08-2021 Specific gravity (U) [Rel density] 1.010 1.002-1.030 [facility] Work Phone: Urobilinogen Auto test strip Ql (U)on 10-08-2021 Urobilinogen Ql (U) Normal mg/dl Normal [facility] Work Phone: Absolute lymphocyte counton 09-22-2021 Lymphocytes Auto (Unsp spec) [#/Vol] 1.51 10*3/uL 0.83-4.51 [facility] Work Phone: Basophil percentageon 2021 Basophils/100 WBC (Bld) 2.1 % 0-1 [facility] Work Phone: Eosinophils/100 WBC (Bld) 5.1 % 0-5 [facility] Work Phone: Neutrophils (Bld) [#/Vol] 3.7 10*3/uL 2.0-7.7 [facility] Work Phone: Neutrophils/100 WBC (Bld) 60.6 % 47-70 [facility] Work Phone: WBC (Bld) [#/Vol] 6.1 10*3/uL 4.4-11.0 [facility] Work Phone: Blood erythrocytes count (nu mber/volume)on 09-22-2021 RBC (Bld) [#/Vol] 4.09 10*6/uL 4.6-6.2 [facility] Work Phone: Blood hemoglobin measurement (mass/volume)on 09-22-2021 Hemoglobin (Bld) [Mass/Vol] 9.1 g/dL 13.0-16.5 [facility] Work Phone: Blood lymphocytes/100 leukoc yteson 09-22-2021 Lymphocytes/100 WBC (Bld) 24.8 % 19-41 [facility] Work Phone: Blood monocytes/100 leukocyt eson 09-22-2021 Monocytes/100 WBC (Bld) 6.9 % 0-10 [facility] Work Phone: Blood platelet mean volumeon 09-22-2021 Platelet mean volume (Bld) [Entitic vol] 9.9 fL 6.2-12.0 [facility] Work Phone: [phone] Determination of erythrocyte mean corpuscular volume (MCV)on 09-22-2021 MCV (RBC) [Entitic vol] 77.5 fL 80-94 [facility] Work Phone: [phone] Hematocrit Auto (Bld) [Volum e fraction]on 09-22-2021 Hematocrit (Bld) [Volume fraction] 31.7 % 40-54 [facility] Work Phone: [phone] Laboratory - Hematology and Cell countson 09-22-2021 Erythrocyte distribution width (RBC) [Entitic vol] 56.2 fL 35.1-43.9 [facility] Work Phone: [phone] Erythrocyte distribution width (RBC) [Ratio] 19.9 % 11.6-14.6 [facility] Work Phone: [phone] Immature granulocytes/100 WBC (Bld) 0.500 % 0.0-0.9 [facility] Work Phone: [phone] Comment on above: IG% - Immature Granu locytes (promyelocytes, myelocytes and metamyelocytes) > 1% indicates that a LEFT SHIFT is Present. MCH (RBC) [Entitic mass] 22.2 pg 27.0-32.0 [facility] Work Phone: [phone] Nucleated RBC/100 WBC (Bld) [Ratio] 0 % 0-5 [facility] Work Phone: [phone] MCHC Auto (RBC) [Mass/Vol]on 09-22-2021 MCHC (RBC) [Mass/Vol] 28.7 g/dL 32-36 [facility] Work Phone: [phone] Platelets bldon 09-22-2021 Platelets (Bld) [#/Vol] 351 10*3/uL 150-450 [facility] Work Phone: [phone] CNPNon 09-21-2021 CNPN Telephone (AGGENS1) PEDRO PABLO SIERRA ([id number]) 1950 M T Date Time Provider Department 09/21/21 YE COELLO During your visit today, we [...] Date Reviewed: 09/15/2021 Reviewed by: Anjel Braga APRN.PATIENT SERVICES MANAGER - Fully Assessed Reason for Visit: Appointment [...] [J43.9] - COMPOUNDED PRESCRIPTION Aerosol supplies Dx:J44.1 NPI#[id number] - COMPOUNDED PRESCRIPTION NEBULIZER FOR HOME USE. [...] left fem (more content not included)... Normal [facility] Absolute lymphocyte counton 09-17-2021 Lymphocytes Auto (Unsp spec) [#/Vol] 1.19 10*3/uL 0.83-4.51 [facility] Work Phone: Basophil percentageon 2021 Basophil percentage 0-5 SEEN /hpf 0-[address] [facility] Work Phone: Basophils/100 WBC (Bld) 1.6 % 0-1 [facility] Work Phone: Bilirubin [Mass/Vol] 0.30 mg/dL 0.20-1.00 [facility] Work Phone: Comment on above: For patients on eltr ombopag therapy, use of Dimension [place] TBIL is not recommended. Chloride [Moles/Vol] 104 mmol/L 98-107 [facility] Work Phone: Eosinophils/100 WBC (Bld) 1.1 % 0-5 [facility] Work Phone: Glucose [Mass/Vol] 100 mg/dL 74-106 [facility] Work Phone: Comment on above: Fasting Glucose resu lt from 100 to 125 mg/dL suggests IMPAIRED HOMEOSTASIS per A.D.A. criteria. Neutrophils (Bld) [#/Vol] 5.2 10*3/uL 2.0-7.7 [facility] Work Phone: Neutrophils/100 WBC (Bld) 73.0 % 47-70 [facility] Work Phone: Potassium [Moles/Vol] 4.2 mmol/L 3.5-5.1 [facility] Work Phone: Protein [Mass/Vol] 7.3 g/dL 6.4-8.2 [facility] Work Phone: Sodium [Moles/Vol] 136 mmol/L 136-145 [facility] Work Phone: WBC (Bld) [#/Vol] 7.1 10*3/uL 4.4-11.0 [facility] Work Phone: Bilirubin Test strip Ql (U)o n 09-17-2021 Bilirubin Ql (U) Negative Negative [facility] Work Phone: Blood erythrocytes count (nu mber/volume)on 09-17-2021 RBC (Bld) [#/Vol] 3.50 10*6/uL 4.6-6.2 [facility] Work Phone: Blood hemoglobin measurement (mass/volume)on 09-17-2021 Hemoglobin (Bld) [Mass/Vol] 7.9 g/dL 13.0-16.5 [facility] Work Phone: Blood lymphocytes/100 leukoc yteson 09-17-2021 Lymphocytes/100 WBC (Bld) 16.9 % 19-41 [facility] Work Phone: Blood monocytes/100 leukocyt eson 09-17-2021 Monocytes/100 WBC (Bld) 7.1 % 0-10 [facility] Work Phone: Blood platelet mean volumeon 09-17-2021 Platelet mean volume (Bld) [Entitic vol] 9.5 fL 6.2-12.0 [facility] Work Phone: Determination of erythrocyte mean corpuscular volume (MCV)on 09-17-2021 MCV (RBC) [Entitic vol] 75.1 fL 80-94 [facility] Work Phone: Hematocrit Auto (Bld) [Volum e fraction]on 09-17-2021 Hematocrit (Bld) [Volume fraction] 26.3 % 40-54 [facility] Work Phone: INR in Blood by Coagulation assayon 09-17-2021 INR Coag (Bld) [Relative time] 1.3 {INR} [facility] Work Phone: Ketones Test strip Ql (U)on 09-17-2021 Ketones Ql (U) Negative Negative [facility] Work Phone: Laboratory - Chemistry and C hemistry - challengeon 09-17-2021 ALP [Catalytic activity/Vol] 79 U/L 45-117 [facility] Work Phone: ALT [Catalytic activity/Vol] 36 U/L 16-61 [facility] Work Phone: [phone] CO2 [Moles/Vol] 25.0 mmol/L 21.0-32.0 [facility] Work Phone: [phone] Globulin (S) [Mass/Vol] 3.5 g/dL 2.2-4.2 [facility] Work Phone: [phone] Lipase [Catalytic activity/Vol] 102 U/L 73-393 [facility] Work Phone: [phone] Urea nitrogen/Creatinine [Mass ratio] 12.5 mg/mg 10-20 [facility] Work Phone: [phone] Laboratory - Coagulationon 0 09-17-2021 PT Coag (PPP) [Time] 15.4 s 11.7-14.9 [facility] Work Phone: [phone] Laboratory - Hematology and Cell countson 09-17-2021 Erythrocyte distribution width (RBC) [Entitic vol] 53.1 fL 35.1-43.9 [facility] Work Phone: [phone] Erythrocyte distribution width (RBC) [Ratio] 19.6 % 11.6-14.6 [facility] Work Phone: [phone] Immature granulocytes/100 WBC (Bld) 0.300 % 0.0-0.9 [facility] Work Phone: [phone] Comment on above: IG% - Immature Granu locytes (promyelocytes, myelocytes and metamyelocytes) > 1% indicates that a LEFT SHIFT is Present. MCH (RBC) [Entitic mass] 22.6 pg 27.0-32.0 [facility] Work Phone: [phone] Nucleated RBC/100 WBC (Bld) [Ratio] 0 % 0-5 [facility] Work Phone: [phone] MCHC Auto (RBC) [Mass/Vol]on 09-17-2021 MCHC (RBC) [Mass/Vol] 30.0 g/dL 32-36 [facility] Work Phone: [phone] Mucus LM Ql (Urine sed)on Mucus Ql (Urine sed) 0 SEEN /hpf [facility] Work Phone: Nitrite Test strip Ql (U)on 09-17-2021 Nitrite Ql (U) Positive Negative [facility] Work Phone: No Panel Informationon 09-17 Estimated Creatinine Clearance Calc 57.68 ml/min [facility] Work Phone: [phone] Estimated GFR (MDRD) Amer 83 mL/min >60 [facility] Work Phone: [phone] Comment on above: GFR Calc Estimated GFR (MDRD) Non-Af Amer 68 mL/min >60 [facility] Work Phone: Comment on above: Non- GFR Calc Platelets bldon 09-17-2021 Platelets (Bld) [#/Vol] 342 10*3/uL 150-450 [facility] Work Phone: [phone] Protein Test strip Ql (U)on 09-17-2021 Protein Ql (U) 15 mg/dl Negative [facility] Work Phone: [phone] Serum or plasma albumin luis urement (mass/volume)on 09-17-2021 Albumin [Mass/Vol] 3.8 g/dL 3.2-5.0 [facility] Work Phone: [phone] Serum or plasma albumin/glob ulin mass ratioon 09-17-2021 Albumin/Globulin [Mass ratio] 1.1 {ratio} 0.9-2.4 [facility] Work Phone: [phone] Serum or plasma calcium luis urement (mass/volume)on 09-17-2021 Calcium [Mass/Vol] 8.7 mg/dL 8.5-10.1 [facility] Work Phone: [phone] Serum or plasma creatinine m easurement (mass/volume)on 09-17-2021 Creatinine [Mass/Vol] 1.12 mg/dL 0.70-1.30 [facility] Work Phone: [phone] Comment on above: The validity of the calculated GFR & GFRAA in patients over 70 years has not been determined. Clinical correlation is essential. Serum or plasma urea nitroge n measurement (mass/volume)on 09-17-2021 Urea nitrogen [Mass/Vol] 14 mg/dL 7-18 [facility] Work Phone: Squamous epithelial cells de tection in urine sediment by light microscopyon 09-17-2021 Epithelial cells.squamous LM Ql (Urine sed) 0-5 SEEN /hpf 0-5 [facility] Work Phone: Thin prep Papanicolaou smear with manual screeningon 09-17-2021 Thin prep Papanicolaou smear with manual screening 19 U/L 15-37 [facility] Work Phone: Thin prep Papanicolaou smear with manual screening 7 5-15 [facility] Work Phone: Urine blood detectionon - RBC Ql (U) Negative Negative [facility] Work Phone: RBC Ql (U) 0 SEEN /hpf 0-5 [facility] Work Phone: Urine clarityon 09-17-2021 Clarity (U) Clear Clear [facility] Work Phone: Urine color determinationon 09-17-2021 Color (U) Yellow Yellow [facility] Work Phone: Urine glucose detectionon Glucose Ql (U) Normal mg/dl Normal [facility] Work Phone: Urine leukocyte esterase det ection by dipstickon 09-17-2021 Leukocyte esterase Test strip Ql (U) 25 /ul Negative [facility] Work Phone: Urine pHon 09-17-2021 pH (U) 6.0 [pH] 5.0 - 8.0 [facility] Work Phone: Urine sediment bacteria coun t by microscopy (number/high power field)on 09-17-2021 Bacteria LM.HPF (Urine sed) [#/Area] 1 /[HPF] None Seen [facility] Work Phone: Urine specific gravity measu rementon 09-17-2021 Specific gravity (U) [Rel density] 1.010 1.002-1.030 [facility] Work Phone: Urobilinogen Auto test strip Ql (U)on 09-17-2021 Urobilinogen Ql (U) Normal mg/dl Normal [facility] Work Phone: PT panel Coag (PPP)on 2021 INR Coag (Bld) [Relative time] 2.1 (EXT) 2.0 - 3.0 [facility] UA DIP, URINE (POC)on 2021 BILIRUBIN UA (POCT) Negative Negative [facility] CLARITY UA (POCT) Clear [facility] COLOR UA (POCT) Yellow [facility] GLUCOSE UA (POCT) Negative Negative mg/dL [facility] HEMOGLOBIN/BLOOD UA (POCT) Trace-lysed Abnormal Negative [facility] KETONE UA (POCT) Negative Negative mg/dL [facility] LEUKOCYTES UA (POCT) Small Abnormal Negative [facility] NITRITE UA (POCT) Positive Abnormal Negative [facility] PH UA (POCT) 5.5 4.5 - 8.0 [facility] Protein Ql (U) 100 mg/dL Abnormal Negative mg/dL [facility] SPECIFIC GRAVITY UA (POCT) 1.020 1.005 - 1.030 [facility] UROBILINOGEN UA (POCT) 0.2 E.U./dL Malaika l E.U./dL [facility] Glucose Glucometer (BldC) [M ass/Vol]on 08-21-2021 Glucose [Mass/Vol] 102 mg/dL 74-106 [facility] Work Phone: Comment on above: MANAGEMENT OF PATIEN T CARE PER NURSING PROTOCOL INR in Blood by Coagulation assayon 08-21-2021 INR Coag (Bld) [Relative time] 1.2 {INR} [facility] Work Phone: Laboratory - Coagulationon 0 08-21-2021 PT Coag (PPP) [Time] 14.9 s 11.7-14.9 [facility] Work Phone: Absolute lymphocyte counton 08-20-2021 Lymphocytes Auto (Unsp spec) [#/Vol] 0.77 10*3/uL 0.83-4.51 [facility] Work Phone: Basophil percentageon 2021 Basophils/100 WBC (Bld) 0.8 % 0-1 [facility] Work Phone: Bilirubin [Mass/Vol] 0.70 mg/dL 0.20-1.00 [facility] Work Phone: Comment on above: For patients on eltr ombopag therapy, use of Dimension [place] TBIL is not recommended. Chloride [Moles/Vol] 107 mmol/L 98-107 [facility] Work Phone: Eosinophils/100 WBC (Bld) 2.2 % 0-5 [facility] Work Phone: Glucose [Mass/Vol] 99 mg/dL 74-106 [facility] Work Phone: Neutrophils (Bld) [#/Vol] 4.9 10*3/uL 2.0-7.7 [facility] Work Phone: Neutrophils/100 WBC (Bld) 77.2 % 47-70 [facility] Work Phone: Potassium [Moles/Vol] 3.7 mmol/L 3.5-5.1 [facility] Work Phone: Protein [Mass/Vol] 6.2 g/dL 6.4-8.2 [facility] Work Phone: Sodium [Moles/Vol] 139 mmol/L 136-145 [facility] Work Phone: WBC (Bld) [#/Vol] 6.3 10*3/uL 4.4-11.0 [facility] Work Phone: Blood erythrocytes count (nu mber/volume)on 08-20-2021 RBC (Bld) [#/Vol] 3.72 10*6/uL 4.6-6.2 [facility] Work Phone: Blood hemoglobin measurement (mass/volume)on 08-20-2021 Hemoglobin (Bld) [Mass/Vol] 7.8 g/dL 13.0-16.5 [facility] Work Phone: Blood lymphocytes/100 leukoc yteson 08-20-2021 Lymphocytes/100 WBC (Bld) 12.2 % 19-41 [facility] Work Phone: Blood monocytes/100 leukocyt eson 08-20-2021 Monocytes/100 WBC (Bld) 6.8 % 0-10 [facility] Work Phone: Blood platelet mean volumeon 08-20-2021 Platelet mean volume (Bld) [Entitic vol] 9.7 fL 6.2-12.0 [facility] Work Phone: Determination of erythrocyte mean corpuscular volume (MCV)on 08-20-2021 MCV (RBC) [Entitic vol] 72.8 fL 80-94 [facility] Work Phone: Hematocrit Auto (Bld) [Volum e fraction]on 08-20-2021 Hematocrit (Bld) [Volume fraction] 27.1 % 40-54 [facility] Work Phone: Laboratory - Chemistry and C hemistry - challengeon 08-20-2021 ALP [Catalytic activity/Vol] 224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 10/17/19 0900 clopidogrel 75 mg tab(s) (PLAVIX) 75 mg ORAL DAILY 10/17/19214 -- 10/17/19214 vte current anticoag therapy (tn,wy) 10/17/19214 pneumatic compression stockings (tn,wy) 10/17/19214 activity - mobilize patient ([place], [place]) VTE Prophylaxis: VTE prophylaxis appropriate ALLERGIES [...] output data in the 24 hours ending 10/17/19256 CONSTITUTIONAL: Well developed and No acute distress [...] 9.0* HCT 28.2* PLT 225 Recent Labs 04/27/20 0421 NA 137 K 3.9 BUN 8* [...] 10/10/19 for hematoma evacuation, Left EIA to ASSEMBLER FINAL bypass with 7mm ringed PTFE, retrograde open [...] (10/08/19) f/b hematoma evacuation, Left EIA to ASSEMBLER FINAL bypass with 7mm ringed PTFE, retrograde open RADHA angioplasty, and open thrombectomy of L iliac artery with extraction of previously placed stent that was crushed and thrombosed (10/10/19) Plan: - NPO - US Arterial Duplex of L Groin SIGNATURE: Parker Garcia MD PATIENT NAME: Pedro Pablo Sierra DATE: October 17, 2019 TIME: 2:16 AM PAGER/CONTACT #: [phone] Previous Version Ayad Tompkins MD, 10/17/2019 10:51 AM Signed As a result of the 09/03/19 order by [facility] Director Libby Harris M.D. to [...] with: Patient Length of visit (minutes): 10 Anabaptism / Spirituality: Hindu Reason: Referral; pre-surgery ASSESSMENT Emotional Disposition: Angry, Helpless and Lonely INTERVENTIONS Empowerment: Normalized experience of patient/family Exploration: Explored emotional needs and resources and Explored spiritual needs and resources OUTCOMES Patient debriefed/defused their experience PLAN Will follow up as requested SIGNATURE: Chaplain Riley PATIENT NAME: Pedro Pablo Sierra DATE: October 17, 2019 TIME: 12:23 PM PAGER/CONTACT #: [phone] Mary Carmen Meredith, RN, RN 10/17/2019 2:57 PM Addendum CARE MANAGEMENT: ASSESSMENT AND DISCHARGE PLAN SERVICE DATE: October 17, 2019 SERVICE TIME: 12:52 PM PRIMARY CARE PHYSICIAN: DAIJA MORTON MD ADMISSION STATUS: Observation Needs Prior to Discharge: To Be Determined MEDICAL: [facility] 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 Last discharge within 30 days: Yes Is this a planned readmission?: No Unplanned Reason: Other: See Comment(non healing wound) Followed Up with Appointment Prior to Admission: Appointment completed Advance Directive: Current Advance Directive: Health Care Power of Body Service Team Member In Chart: Yes Up To Date and [...] Home Care?: Home Health Care Agency;Meals on Wheels([facility] [phone] SN/OT/PT) Equipment Prior to Admission: Walker SOCIAL: Living Arrangements: Home Lives With: Alone Financial Resources: RetiredPrimary Contact: Extended Emergency Contact Information Primary Emergency Contact: RubénMichelle Mobile Relation: Daughter Secondary Emergency Contact: Joseph Burrell Mobile Relation: Relative Supportive Patient Contact:: Yes Contact Resources: Other;Significant Other Other Contact Name/Phone: Liseth reaves/ Ann Luquillo ([employer] agency on [employer]) [phone] Social Needs Food insecurity Worry: Sometimes true [...] Completely I feel financially burdened by my tvp-lf-ttgufo expenses for my prescription medication:: 0 - [...] depends on his daughter and ex (Joseph [phone]) for transportation. He receives waiver services w/ [facility] for SN/OT. He receives Meals on Wheels 9 meals/wk plus some groceries. Patient to have exploration of Inguinal site today 10/16. Additional care needs TBD. TCC remains available for plan of care and transitional care needs as they arise. 1445: Liseth w/ [facility] ([facility] on aging) [phone] call for to update on svcs received. [facility] patient receives waiver services through [facility] for HHC (SN/PT/OT), meals, and emergency health line. Would like to be updated on discharge plans once known. SIGNATURE: Mary Carmen Meredith RN PATIENT NAME: Pedro Pablo Sierra DATE: October 17, 2019 TIME: 12:52 PM PAGER/CONTACT #: [phone] Previous Version Emilie Mcclelland RN, RN 10/17/2019 7:03 PM Addendum Nursing Progress Note Patient Name: Pedro Pablo Sierra Patient Location: [id number]/-T-0 534-01 __ Daily Note: Alert and oriented [...] PATIENT NAME: Pedro Pablo Sierra PATIENT LOCATION: [place] [address]/[place] [address] 53* READINESS TO LEARN COGNITIVE ABILITY: Alert [...] Patient Name: Pedro Pablo Sierra Patient Location: [id number]/-5WST-0 534-01 __ Daily Note: Patient has been [...] have any questions, please contact Lit at [phone]. Age: [age] year old Allergies: ALLERGIES No [...] completed by: Emilie Mcclelland, ОЛЕГ Progress Notes ([facility]): Emilie Haque RN 10/16/2019 2:25 PM [...] with any changes. Emilie Haque RN Normal [facility] Basic Metabolic Panlon 10-13 Anion gap [Moles/Vol] 12 mmol/L Normal 9-18 [facility] Comment on above: Performed By: #### C KATHY JUAREZ, PT ####[place] [phone] Calcium [Mass/Vol] 8.3 mg/dL Low 8.5-10.5 [facility] Comment on above: Performed By: #### C KATHY JUAREZ, PT ####[phone] Chloride [Moles/Vol] 100 mmol/L Normal 98-110 [facility] Comment on above: Performed By: #### C KATHY JUAREZ, PT ####[phone] CO2 [Moles/Vol] 25 mmol/L Normal 23-32 [facility] Comment on above: Performed By: #### C KATHY JUAREZ, PT ####[place] [phone] Creatinine [Mass/Vol] 0.69 mg/dL Low 0.70-1.40 [facility] Comment on above: Performed By: #### KATHY HARRISON, PT ####[place] [phone] eGFR- Amer. >60 Normal >60 [facility] Comment on above: Performed By: #### KATHY HARRISON, PT ####[address] [phone] GFR/1.73 sq M predicted among non-blacks MDRD (S/P/Bld) [Vol rate/Area] mL/min/{1.73_m2} Normal >60 [facility] Comment on above: Performed By: #### C BC, BMP, PT ####[place] [phone] Glucose [Mass/Vol] 100 mg/dL Normal 65-100 [facility] Comment on above: Performed By: #### C BC, BMP, PT ####[place] [phone] Potassium [Moles/Vol] 3.9 mmol/L Normal 3.5-5.0 [facility] Comment on above: Performed By: #### C LARRY, BMP, PT ####[place] [phone] Sodium [Moles/Vol] 137 mmol/L Normal 135-146 [facility] Comment on above: Performed By: #### C LARRY, BMP, PT ####[place] [phone] Urea nitrogen [Mass/Vol] 8 mg/dL Low 10-25 [facility] Comment on above: Performed By: #### C LARRY, BMP, PT ####[place] [phone] CASE MANAGEMon 10-14-2019 CASE MANAGEM HNO ID: [id number] Author: Guadalupe Yee (Sw) Service: ? Author Type: Inside Sales Territory Manager Type: Care Mgt Progress Note Filed: 10/14/2019 10:14 AM Note Text: CARE MANAGEMENT DISCHARGE NOTE SERVICE DATE: 10/14/2019 SERVICE TIME: 9:59 AM LOS: 6 days Admission Date: 10/08/2019 DISCHARGE ARRANGEMENT (list agency and phone number) Discharge Arrangement: Home [facility]itentiary Care: Nursing;OT Provider Name: [facility] CAREGIVER ASSESSMENT: Caregiver is ready, willing and able to meet the patient's needs as recommended by the inter-professional team:: Yes Does the patient have an acute stroke diagnosis, or has the patient had a stroke during this admission?: No Patient's transition needs and plan for meeting these needs: [facility] HANDOFF COMMUNICATION: Handoff to: Primary Care Physician Commissioner Of Internal Revenue Name/Phone: Daija Farahhuan/[phone] Primary Care Physician Name/Phone: Daija Ganhuan TRANSPORTATION ARRANGEMENTS: Transportation Arrangements: Car ADDITIONAL CONTACT RESOURCES: Discharge Information Row Name Admission (Current) from 10/08/[address] [facility] Start of Care 10/16/19 Patient will be discharged home today. Patient reports his family will be here to transport him home. D/C order and AVS was sent to [facility] agency. Patient updated on his denial notice and the need to be d/c today before noon today. Addendum- Spoke with [facility] agency about drawn INR on Monday. [facility] agency reported they would provide a SOC on Monday. Updated PA to write orders to have INR drawn on Monday per [facility] request. SIGNATURE: SHANE CLEMONS PATIENT NAME: Pedro Pablo Sierra DATE: October 14, 2019 TIME: 9:58 AM PAGER/CONTACT #: [phone] Normal [facility] CBCon 10-14-2019 Erythrocyte distribution width (RBC) [Ratio] 15.9 % High 11.5-15.0 [facility] Comment on above: Performed By: #### C KATHY JUAREZ, PT ####[facility] [place] [phone] Hematocrit (Bld) [Volume fraction] 28.2 % Low 39.0-51.0 [facility] Comment on above: Performed By: #### C KATHY JUAREZ, PT ####[place] [phone] [place] [phone] Hemoglobin (Bld) [Mass/Vol] 9.0 g/dL Low 13.0-17.0 [facility] Comment on above: Performed By: #### C KATHY JUAREZ, PT ####[place] [phone] MCH (RBC) [Entitic mass] 29.8 pG Normal 26.0-34.0 [facility] Comment on above: Performed By: #### C KATHY JUAREZ, PT ####[place] [phone] MCHC (RBC) [Mass/Vol] 31.9 g/dL Normal 30.5-36.0 [facility] Comment on above: Performed By: #### C LARRY BMP, PT ####[place] [phone] MCV (RBC) [Entitic vol] 93.4 fL Normal 80.0-100.0 [facility] Comment on above: Performed By: #### C LARRY BMP, PT ####[place] [phone] Platelet mean volume (Bld) [Entitic vol] 9.8 fL Normal 9.0-12.7 [facility] Comment on above: Performed By: #### C LARRY BMP, PT ####[place] [phone] Platelets (Bld) [#/Vol] 225 10*3/uL Normal 150-400 [facility] Comment on above: Performed By: #### C LARRY BMP, PT ####[place] [phone] RBC (Bld) [#/Vol] 3.02 10*6/uL Low 4.20-6.00 [facility] Comment on above: Performed By: #### C LARRY BMP, PT ####[place] [phone] WBC (Bld) [#/Vol] 4.88 10*3/uL Normal 3.70-11.00 [facility] Comment on above: Performed By: #### C BC, BMP, PT ####[place] [phone] NURSING PROGon 10-14-2019 NURSING PROG HNO ID: [id number] Author: Fran Solorio RN Service: ? Author Type: Registered Nurse Type: Nursing Progress Note Filed: 10/14/2019 6:05 PM Note Text: Nursing Progress Note Patient Name: Pedro Pablo Sierra Patient Location: [address]/-BB3U-09 __ Daily Note: Patient was resting comfortably [...] note was completed by: Fran Solorio RN [facility] NUTRITIONon 10-14-2019 NUTRITION HNO ID: [id number] Author: Muna Rivas Service: Nutrition Therapy Author [...] and weekends please page the Group Pager [phone] [facility] PLAN OF CAREon 10-14-2019 PLAN OF CARE HNO ID: [id number] Author: Sherly Quigley (Automotive Window Tinter) Service: Pharmacy Author Type: Life Enrichment Director Type: Plan of Care Filed: 10/15/2019 11:12 AM Note Text: HOSPICE CARE TRANSITIONS COORDINATOR BEDSIDE DELIVERY SURVEY 1. Patient to use [facility] Bedside Delivery - NO prefer own pharmacy Insurance Information as follows: 2. Insurance card on file - NO 3. Credit card for payment - NO [facility] PLAN OF CARE HNO ID: [id number] Author: Roman Richey) Era Service: Vascular Surgery Author Type: Nurse [...] Morton stated that she would have her Video Presentation Operator call him today to make a post dc followup virtual appt on 10/15 to go over INR results. - [facility] campaign management senior manager coordinated with Home health and scheduled INR check on 10/15 -Pt's ex is picking pt up for discharge to home at 1200 per pt Roman Girard POULTRY PACKER/PATIENT SERVICES MANAGER Vascular Surgery Pager: [phone] [facility] PROGRESSon 10-14-2019 PROGRESS HNO ID: [id number] Author: Ayad Tompkins MD Service: Vascular Surgery [...] -- 10/11/19 0945 activity - mobilize patient ([place], [place]) 10/08/19 1645 pneumatic compression stockings ([place], [place]) VTE Prophylaxis: on AC ALLERGIES No [...] DP, R PT DATA: Laboratory: Recent Labs 10/14/1942010/13/19 0511 10/12/19 0913 WBC 4.88 4.79 5.98 HB 9.0* 8.4* 9.7* HCT 28.2* 26.2* 29.3* PLT 225 187 173 Recent Labs 10/14/19 0421 10/13/19 0511 10/12/19 0913 NA 137 138 135 K 3.9 3.5 3.6 BUN 8* 8* 8* CREAT 0.69* 0.68* 0.64* GLUC 100 103* 151* Recent Labs 10/14/1942010/13/19 0511 10/12/19 0913 INR 2.6* 2.9* 1.5* Assessment/Plan Impression: Pedro Pablo Sierra is a 69 year old White male who was admitted for surgical management of claudication w/ rest pain and is s/p L ASSEMBLER FINAL EA w/ bovine patch, L RADHA and EIA thrombectomy, L CI and EI stenting 10/07 c/b thrombosis s/p EIA to ASSEMBLER FINAL bypass graft w. Ringed PTFE 10/09. Plan: INR in range, will resume home coumadin regimen; d/c lovenox Reg diet, HLIV PO pain meds Cont. plavix Dressing changes PRN to groin Dispo: D/c home with [facility] today Ayad Tompkins MD General Surgery, PGY-3 For questions Monday through Monday 6am to 6pm please page Red Team [phone] For questions during nights (6pm - 6am) and weekends, please contact the General Surgery Metal Reclamation Kettle Tender pager, [phone] Normal [facility] Protimeon 10-14-2019 PT Coag (PPP) [Time] 27.5 s High 9.7-13.0 [facility] Comment on above: Performed By: #### C BC, BMP, PT ####[facility] [place], [place] [phone] PT Coag (PPP) [Time] 2.6 s High 0.9-1.3 [facility] Comment on above: Result Comment: Teri min K Antagonist (VKA) Therapeutic Range: INR 2 to 3 (Target INR of 2.5) Note: For patients treated with VKA drugs, such as warfarin, the [employer] [employer] 2012 Guideline recommends [...] Chest 2012, 141:7S-47S Gio RA, et al. [facility] 2017, 70: 252-289 Performed By: #### C BC, BMP, PT ####[place] [phone] [place], [place] [phone] THERAPY NTon 10-14-2019 THERAPY NT HNO ID: [id number] Author: Shakir Alicea (Pt) Mode Service: Physical Therapy Author Type: Physical Therapist Type: Therapy (PT/OT/Speech/Resp) Filed: 10/14/2019 10:40 AM Note Text: Physical Therapy Treatment SERVICE DATE: 10/14/2019 SERVICE TIME: 1003 to 1026 ROOM: [place] [address] Recommended Discharge Disposition: Home PT Anticipated Discharge [...] ness on feet Interventions Provided: Gait Training (99202);Therapeutic Activity (41499) Therapeutic Activity (76233) Treatment Minutes: 10 1 unit Skilled Intervention(s): [...] in position prior to mobility Gait Training (81066) Treatment Minutes: 13 1 unit Skilled Intervention(s): [...] Consult : PVD s/p L LE redo ASSEMBLER FINAL endarterectomy, L profundoplasty, iliac stenting on 10/08/19 Relevant Past Medical History: S/p L femoral endarterectomy/aoroili ac stenting Patient Report: Pt agreeable to participate in therapy session. Pt having coughing spells intermittently during functional mobility, stating that he gets light headed when this occurs (vascular team was notified). Home Environment Patient Lives With: Self/Alone Assistance Available: horse race timer Entry To Home: Stairs;Other: See Comment(stair lift) [...] DATE: October 14, 2019 TIME: 10:37 AM Normal [facility] THERAPY NT HNO ID: [id number] Author: Caitlin Thomas Service: Occupational Therapy Author Type: Occupational Therapist Type: Therapy (PT/OT/Speech/Resp) Filed: 10/14/2019 10:18 AM Note Text: OCCUPATIONAL THERAPY MISSED VISIT SERVICE DATE: 10/14/2019 SERVICE TIME: 920 to 920 ROOM: [place] [address] Attempted Treatment. Patient not seen due to Declined. Pt declines OT tx stating, Not until after dinner. OT explains that it is 9 in the morning with pt verbalizing understanding and continuing to decline therapy at this time. Continue OT per POC as able. SIGNATURE: Caitlin Thomas OTR/L PATIENT NAME: Pedro Pablo Sierra DATE: October 14, 2019 TIME: 10:17 AM Normal [facility] Basic Metabolic Panlon 10-12 Anion gap [Moles/Vol] 10 mmol/L Normal 9-18 [facility] Comment on above: Performed By: #### C KATHY JUAREZ, PT ####[place] [phone] Calcium [Mass/Vol] 8.1 mg/dL Low 8.5-10.5 [facility] Comment on above: Performed By: #### C KATHY JUAREZ, PT ####[place] [phone] Chloride [Moles/Vol] 102 mmol/L Normal 98-110 [facility] Comment on above: Performed By: #### C KATHY JUAREZ, PT ####[place] [phone] CO2 [Moles/Vol] 26 mmol/L Normal 23-32 [facility] Comment on above: Performed By: #### C KATHY JUAREZ, PT ####[place] [phone] Creatinine [Mass/Vol] 0.68 mg/dL Low 0.70-1.40 [facility] Comment on above: Performed By: #### C LARRY BMP, PT ####[place] [phone] eGFR- Amer. >60 Normal >60 [facility] Comment on above: Performed By: #### C KATHY JUAREZ, PT ####[place] [phone] GFR/1.73 sq M predicted among non-blacks MDRD (S/P/Bld) [Vol rate/Area] mL/min/{1.73_m2} Normal >60 [facility] Comment on above: Performed By: #### C KATHY JUAREZ, PT ####[place] [phone] Glucose [Mass/Vol] 103 mg/dL High 65-100 [facility] Comment on above: Performed By: #### C KATHY JUAREZ, PT ####[place] [phone] Potassium [Moles/Vol] 3.5 mmol/L Normal 3.5-5.0 [facility] Comment on above: Performed By: #### C KATHY JUAREZ, PT ####[place] [phone] Sodium [Moles/Vol] 138 mmol/L Normal 135-146 [facility] Comment on above: Performed By: #### C KATHY JUAREZ, PT ####[place] [phone] Urea nitrogen [Mass/Vol] 8 mg/dL Low 10-25 [facility] Comment on above: Performed By: #### C KATHY JUAREZ, PT ####[place] [phone] CASE MANAGEMon 10-13-2019 CASE MANAGEM HNO ID: [id number] Author: Carly NessRn) ОЛЕГ Man Service: Case Management Author Type: [...] understanding. Pt aware he will [facility] services. AVS faxed to Carmen Qureshi CM) SIGNATURE: Carly Man RN,BSN PATIENT NAME: Pedro Pablo Sierra DATE: October 13, 2019 TIME: 1:54 PM PAGER/CONTACT #: [phone] Normal [facility] CBCon 10-13-2019 Erythrocyte distribution width (RBC) [Ratio] 15.9 % High 11.5-15.0 [facility] Comment on above: Performed By: #### C LARRY BMP, PT ####[place] [phone] Hematocrit (Bld) [Volume fraction] 26.2 % Low 39.0-51.0 [facility] Comment on above: Performed By: #### C KATHY JUAREZ, PT ####[place] [phone] Hemoglobin (Bld) [Mass/Vol] 8.4 g/dL Low 13.0-17.0 [facility] Comment on above: Performed By: #### C KATHY JUAREZ, PT ####[place] [phone] MCH (RBC) [Entitic mass] 29.6 pG Normal 26.0-34.0 [facility] Comment on above: Performed By: #### C LARRY BMP, PT ####[phone] MCHC (RBC) [Mass/Vol] 32.1 g/dL Normal 30.5-36.0 [facility] Comment on above: Performed By: #### C KATHY JUAREZ, PT ####[place] [phone] MCV (RBC) [Entitic vol] 92.3 fL Normal 80.0-100.0 [facility] Comment on above: Performed By: #### C LARRY BMP, PT ####[place] [phone] Platelet mean volume (Bld) [Entitic vol] 10.0 fL Normal 9.0-12.7 [facility] Comment on above: Performed By: #### C KATHY JUAREZ, PT ####[place] [id number] [place], [place] [phone] Platelets (Bld) [#/Vol] 187 10*3/uL Normal 150-400 [facility] Comment on above: Performed By: #### C KATHY JUAREZ, PT ####[place] [id number] [place], [place] [phone] RBC (Bld) [#/Vol] 2.84 10*6/uL Low 4.20-6.00 [facility] Comment on above: Performed By: #### C KATHY JUAREZ, PT ####[place] [id number] [place], [place] [phone] WBC (Bld) [#/Vol] 4.79 10*3/uL Normal 3.70-11.00 [facility] Comment on above: Performed By: #### C KATHY JUAREZ, PT ####[address] [phone] NURSING PROGon 10-13-2019 NURSING PROG HNO ID: [id number] Author: Stefania France (Rn) ОЛЕГ García Service: ? Author Type: Registered Nurse Type: Nursing Progress Note Filed: 10/13/2019 10:12 AM Note Text: Nursing Progress Note Patient Name: Pedro Pablo Sierra Patient Location: [id number] __ Daily Note:Patient expressed a desire to ambulate and get up to chair. He states he wants to get back to his normal life. Patient states he started the process to dispute his discharge. He also states his ex and daughter will not pick him up from the hospital without a plan for 24/ care. RN inquired about his daughter and [...] note was completed by: Stefania García RN [facility] NURSING PROG HNO ID: [id number] Author: Eimly (Rn) ОЛЕГ Linda Service: ? Author Type: Registered Nurse Type: Nursing Progress Note Filed: 10/13/2019 12:12 AM Note Text: Nursing Progress Note Patient Name: Pedro Pablo Sierra Patient Location: [place] [address]-25 __ Daily Note: 2150-- pt resting in bed AO3, 87% RA [...] reach. 0000-- page to on-call surgery team [id number]-- Pedro Pablo Sierra [id number]-- patients L groin cath site has frequent medium amount of serosanguinous drainage, dressing changed. small hematoma still present. just wanted to make aware. thanks, Emily [phone] 0007-- call back from Noman Fish, general surgery resident, says continue monitoring incision for larger amount of bloody drainage and dehiscence. This note was completed by: Emily Linda RN [facility] PROGRESSon 10-13-2019 PROGRESS HNO ID: [id number] Author: Noman France (Binu Fish MD Service: General Surgery Author Type: Resident Type: Progress Notes Filed: 10/13/2019 7:13 AM Note Text: [facility] POSTOP PROGRESS NOTE Service Date: 10/13/2019Admit Date: 10/08/2019Service Time: 7:08 AM LOS: 5 day(s) Primary Service: Vascular Surgery Vascular Physician: Ryan May MD Interval Events/Issues: Drainage from incision site. Patient angry about discharge, wants hdbfn-but-qpjio care at home. Otherwise no acute events. [...] -- 10/11/19 0945 activity - mobilize patient (fl,oh) 10/08/19 1645 pneumatic compression stockings (tn,oh) VTE Prophylaxis: on AC ALLERGIES No Known [...] 2106 ? ? ? 81 ? ? 10/11/19 2050 ? ? ? 78 18 (!) 86 [...] R PT DATA: Laboratory: Recent Labs 10/13/19 0511 10/12/19 0913 10/11/19 0330 WBC 4.79 5.98 5.78 HB 8.4* 9.7* 8.9* HCT 26.2* 29.3* 27.2* PLT 187 173 140* Recent Labs 10/13/19 0511 10/12/19 0913 10/11/19 0330 10/10/19 1459 NA 138 135 136 138 K 3.5 3.6 3.9 4.3 BUN 8* 8* 8* 9* CREAT 0.68* 0.64* 0.63* 0.68* GLUC 103* 151* 107* 127* MG -- -- 2.0 1.8 Recent Labs 10/13/19 0511 10/12/19 0913 10/11/19 1120 10/10/19199910/10/19 1459 APTT -- -- -- 25.4 126.3* INR 2.9* 1.5* 1.0 1.0 1.0 Assessment/Plan Impression: Pedro Pablo Sierra is a 69 year old White male who is POD# 4/2, admitted for surgical management of claudication w/ rest pain and is s/p L ASSEMBLER FINAL EA w/ bovine patch, L RADHA and EIA thrombectomy, L CI and EI stenting 10/07 c/b thrombosis s/p : EIA to ASSEMBLER FINAL bypass graft w. Ringed PTFE 10/09. Plan: Continue lovenox to coumadin bridge Reg diet, HLIV PO pain meds S/p brittany-op abx No clark Cont. plavix Dressing changes PRN to groin Dispo: D/c home with [facility] today Noman Fish MD 7:09 AM 10/13/2019 See below: For questions Monday through Monday 6am to 6pm please page Red Team [phone] For questions during nights (6pm - 6am) and weekends, please contact the General Surgery [employer] Kettle Tender pager, [phone] Normal [facility] Protimeon 10-13-2019 PT Coag (PPP) [Time] 30.6 s High 9.7-13.0 [facility] Comment on above: Performed By: #### C BC, BMP, PT ####[facility] [place], [place] [phone] PT Coag (PPP) [Time] 2.9 s High 0.9-1.3 [facility] Comment on above: Result Comment: Teri min K Antagonist (VKA) Therapeutic Range: INR 2 to 3 (Target INR of 2.5) Note: For patients treated with VKA drugs, such as warfarin, the [place] [employer] 2012 Guideline recommends [...] Chest 2012, 141:7S-47S Gio RA, et al. [facility] 2017, 70: 252-289 Performed By: #### C BC, BMP, PT ####[place] [id number] [place], [place] [phone] THERAPY NTon 10-13-2019 THERAPY NT HNO ID: [id number] Author: Shakir Alicea (Pt) Mode Service: Physical Therapy Author Type: Physical Therapist Type: Therapy (PT/OT/Speech/Resp) Filed: 10/13/2019 1:35 PM Note Text: Physical Therapy Treatment SERVICE DATE: 10/13/2019 SERVICE TIME: 1235 to 1300 ROOM: [place] [address] Recommended Discharge Disposition: Home PT Anticipated Discharge [...] ness on feet Interventions Provided: Gait Training (38545) Gait Training (62138) Treatment Minutes: 25 2 units Skilled Intervention(s): [...] Consult : PVD s/p L LE redo ASSEMBLER FINAL endarterectomy, L profundoplasty, iliac stenting on 10/08/19 Relevant Past Medical History: S/p L femoral endarterectomy/aoroili ac stenting Patient Report: Pt agreeable to participate in therapy session Home Environment Patient Lives With: Self/Alone Assistance Available: horse race timer Entry To Home: Stairs;Other: See Comment(stair lift) [...] October 13, 2019 TIME: 1:34 PM Normal [facility] Basic Metabolic Panlon 10-11 Anion gap [Moles/Vol] 11 mmol/L Normal 9-18 [facility] Comment on above: Performed By: #### C LARRY PT, BMP ####[facility] [place], [place] [phone] Calcium [Mass/Vol] 8.1 mg/dL Low 8.5-10.5 [facility] Comment on above: Performed By: #### C LARRY PT, BMP ####[place] [phone] Chloride [Moles/Vol] 98 mmol/L Normal 98-110 [facility] Comment on above: Performed By: #### C BC, PT, BMP ####[place] [phone] CO2 [Moles/Vol] 26 mmol/L Normal 23-32 [facility] Comment on above: Performed By: #### C BC, PT, BMP ####[place] [phone] Creatinine [Mass/Vol] 0.64 mg/dL Low 0.70-1.40 [facility] Comment on above: Performed By: #### C BC, PT, BMP ####[place] [phone] eGFR- Amer. >60 Normal >60 [facility] Comment on above: Performed By: #### C BC, PT, BMP ####[place] [phone] GFR/1.73 sq M predicted among non-blacks MDRD (S/P/Bld) [Vol rate/Area] mL/min/{1.73_m2} Normal >60 [facility] Comment on above: Performed By: #### C BC, PT, BMP ####[place] [phone] Glucose [Mass/Vol] 151 mg/dL High 65-100 [facility] Comment on above: Performed By: #### C BC, PT, BMP ####[place] [phone] Potassium [Moles/Vol] 3.6 mmol/L Normal 3.5-5.0 [facility] Comment on above: Performed By: #### C BC, PT, BMP ####[place] [phone] Sodium [Moles/Vol] 135 mmol/L Normal 135-146 [facility] Comment on above: Performed By: #### C BC, PT, BMP ####[facility] [place], [place] [phone] Urea nitrogen [Mass/Vol] 8 mg/dL Low 04-12 [facility] Comment on above: Performed By: #### C BC, PT, BMP ####[facility] [place], [place] [phone] CASE MANAGEMon 10-12-2019 CASE MANAGEM HNO ID: [id number] Author: Carly Hutchison) ОЛЕГ Man Service: Case Management Author Type: Registered Nurse Type: Care Mgt Progress Note Filed: 10/12/2019 12:39 PM Note Text: CARE MANAGEMENT PROGRESS NOTE SERVICE DATE: 10/12/2019 SERVICE TIME: 1230 LOS: 4 days Needs Prior to Discharge: To Be Determined Clinicals faxed to [facility] SIGNATURE: Carly Man RN,BSN PATIENT NAME: Pedro Pablo Sierra DATE: October 12, 2019 TIME: 12:38 PM PAGER/CONTACT #: [phone] [facility] CASE MANAGEM HNO ID: [id number] Author: Carly Hutchison) ОЛЕГ Man Service: Case [...] SIGNATURE: Carly Man RN,BSN PATIENT NAME: Pedro Pabol Sierra DATE: October 12, 2019 TIME: 10:14 AM PAGER/CONTACT #: [phone] Normal [facility] CBCon 10-12-2019 Erythrocyte distribution width (RBC) [Ratio] 16.0 % High 11.5-15.0 [facility] Comment on above: Performed By: #### C BC, PT, BMP ####[place] [phone] Hematocrit (Bld) [Volume fraction] 29.3 % Low 39.0-51.0 [facility] Comment on above: Performed By: #### C BC, PT, BMP ####[place] [phone] Hemoglobin (Bld) [Mass/Vol] 9.7 g/dL Low 13.0-17.0 [facility] Comment on above: Performed By: #### C BC, PT, BMP ####[place] [phone] MCH (RBC) [Entitic mass] 30.3 pG Normal 26.0-34.0 [facility] Comment on above: Performed By: #### C BC, PT, BMP ####[place] [phone] MCHC (RBC) [Mass/Vol] 33.1 g/dL Normal 30.5-36.0 [facility] Comment on above: Performed By: #### C BC, PT, BMP ####[place] [phone] MCV (RBC) [Entitic vol] 91.6 fL Normal 80.0-100.0 [facility] Comment on above: Performed By: #### C BC, PT, BMP ####[place] [phone] Platelet mean volume (Bld) [Entitic vol] 10.2 fL Normal 9.0-12.7 [facility] Comment on above: Performed By: #### C BC, PT, BMP ####[facility] [place], [place] [phone] Platelets (Bld) [#/Vol] 173 10*3/uL Normal 150-400 [facility] Comment on above: Performed By: #### C BC, PT, BMP ####[place] [phone] RBC (Bld) [#/Vol] 3.20 10*6/uL Low 4.20-6.00 [facility] Comment on above: Performed By: #### C BC, PT, BMP ####[place] [id number] [place] [phone] WBC (Bld) [#/Vol] 5.98 10*3/uL Normal 3.70-11.00 [facility] Comment on above: Performed By: #### C BC, PT, BMP ####[place] [phone] NURSING PROGon 10-12-2019 NURSING PROG HNO ID: [id number] Author: Daphney (Rn) ОЛЕГ Baron Service: Nursing Author Type: Registered Nurse Type: Nursing Progress Note Filed: 10/12/2019 4:25 PM Note Text: Nursing Progress Note Patient Name: Pedro Pablo Sierra Patient Location: [place] [address] [address] __ Daily Note: 0900: Pt up to chair with 2 assist and walker. Pt states left leg is painful, but able to bear weight. Pt does not want to be discharged at this time, PT/OT recommending skilled, pt refusing and wanting home care around the clock. Pt requesting robitussin for cough, given at 0841 per order. 1130: Pt assisted to bathroom with vocational nursing instructor and walker. Pt was able to ambulate from bathroom to bed using walker with standby assist. 1610: Incision to left groin oozing serosang drainage. Gown saturated and needed to be changed. Abd and paper tape applied to cover and collect drainage. Pt c/o pain to left groin, 01/26. Medicated with 10mg po oxycodone. This note was completed by: Daphney Baron RN [facility] PROGRESSon 10-12-2019 PROGRESS HNO ID: [id number] Author: Elly (Azalea) Stephanie Service: Vascular Surgery [...] -- 10/11/19 0945 activity - mobilize patient ([place], [place]) 10/08/19 1645 pneumatic compression stockings ([place], [place]) VTE Prophylaxis: on AC ALLERGIES No [...] 2.0 1.8 2.0 Recent Labs 10/11/19 1120 10/10/19 2000 10/10/19 1459 10/10/19 0559 APTT -- 25.4 126.3* 109.7* INR 1.0 1.0 1.0 -- Assessment/Plan Impression: Pedro Pablo Sierra is a 69 year old White male who is POD# 4/2, admitted for surgical management of claudication w/ rest pain and is s/p L ASSEMBLER FINAL EA w/ bovine patch, L RADHA and EIA thrombectomy, L CI and EI stenting 10/07 c/b thrombosis s/p : EIA to ASSEMBLER FINAL bypass graft w. Ringed PTFE 10/09. Plan: [...] CRISPIN stenting on 10/23, UC, CAD previous AK, DM, HTN, HLD, COPD Overall Course: 63 year old male with acute onset of BLE pain. Taken to OR for initiation of thrombolysis thru LCIA/TORITO Procedure/Surgeries: 1. Aortogram with bilateral ileofemoral runoff via left brachial artery 2. Left leg angiogram, 3rd order 3. Placement of lysis catheter from distal aorta to left SFA, 20cm treatment zone Neela 07/02/2014 Thrombectomy Airway Difficulty: NA OR Course: [...] and weekends, please contact the General Surgery Metal Re[employer] Kettle Tender pager, [phone] Normal [facility] Protimeon 10-12-2019 PT Coag (PPP) [Time] 15.6 s High 9.7-13.0 [facility] Comment on above: Performed By: #### C BC, PT, BMP ####[facility] [place], [place] [phone] PT Coag (PPP) [Time] 1.5 s High 0.9-1.3 [facility] Comment on above: Result Comment: Teri min K Antagonist (VKA) Therapeutic Range: INR 2 to 3 (Target INR of 2.5) Note: For patients treated with VKA drugs, such as warfarin, the [place] [employer] 2012 Guideline recommends [...] Chest 2012, 141:7S-47S Gio RA, et al. [facility] 2017, 70: 252-289 Performed By: #### C BC, PT, BMP ####[facility] [place], [place] [phone] ANES POSTPROC EVALon 020 ANES POSTPROC EVAL HNO ID: [id number] Author: Cassie Zavala Service: ? Author Type: Anesthesiologist Type: Anesthesia Postprocedure Evaluation Filed: 10/11/2019 7:41 AM Note Text: POST ANESTHESIA EVALUATION NOTE : 1950 Procedure Summary Date: 10/10/19 Room / Location: OR04A / [facility] OR Anesthesia Start: 853 Anesthesia Stop: 1430 Procedure: ENDARTERECTOMY FEMORAL (Left [...] October 11, 2019 TIME: 7:41 AM CSN: [id number] Normal [facility] Basic Metabolic Panlon 10-10 Anion gap [Moles/Vol] 9 mmol/L Normal 9-18 [facility] Comment on above: Performed By: #### C BC, BMP, MG1, PHOS ####[place] [address] [place], [place] [phone] Calcium [Mass/Vol] 7.7 mg/dL Low 8.5-10.5 [facility] Comment on above: Performed By: #### C BC, BMP, MG1, PHOS ####[place] [address] [place], [place] [phone] Chloride [Moles/Vol] 101 mmol/L Normal 98-110 [facility] Comment on above: Performed By: #### C BC, BMP, MG1, PHOS ####[place] [address] [place], [place] [phone] CO2 [Moles/Vol] 26 mmol/L Normal 23-32 [facility] Comment on above: Performed By: #### C BC, BMP, MG1, PHOS ####[place] [phone] Creatinine [Mass/Vol] 0.63 mg/dL Low 0.70-1.40 [facility] Comment on above: Performed By: #### C BC, BMP, MG1, PHOS ####[place] [phone] eGFR- Amer. >60 Normal >60 [facility] Comment on above: Performed By: #### C BC, BMP, MG1, PHOS ####[place] [phone] GFR/1.73 sq M predicted among non-blacks MDRD (S/P/Bld) [Vol rate/Area] mL/min/{1.73_m2} Normal >60 [facility] Comment on above: Performed By: #### C BC, BMP, MG1, PHOS ####[place] [phone] Glucose [Mass/Vol] 107 mg/dL High 65-100 [facility] Comment on above: Performed By: #### C BC, BMP, MG1, PHOS ####[place] [phone] Potassium [Moles/Vol] 3.9 mmol/L Normal 3.5-5.0 [facility] Comment on above: Performed By: #### C BC, BMP, MG1, PHOS ####[place] [phone] Sodium [Moles/Vol] 136 mmol/L Normal 135-146 [facility] Comment on above: Performed By: #### C BC, BMP, MG1, PHOS ####[place] [phone] Urea nitrogen [Mass/Vol] 8 mg/dL Low 10-25 [facility] Comment on above: Performed By: #### C KATHY JUAREZ, MG1, PHOS ####[facility] [place], [place] [phone] CASE MGT INIT ASSESon 2019 CASE MGT INIT ASSES HNO ID: [id number] Author: Bri (Олег) ОЛЕГ Swann Service: Case Management Author Type: Registered Nurse Type: Care Mgt Initial Assessment Filed: 10/11/2019 2:43 PM Note Text: CARE MANAGEMENT PROGRESS NOTE SERVICE DATE: 10/11/2019 SERVICE TIME: 2:38 PM LOS: 3 days [place] of Choice Given: Yes Level of Care Discussed: Home Care Financial Disclosure Provided: Yes Financial Disclosure Comments: discussed Needs Prior to Discharge: To Be Determined;Home Care Order CM discussed with pt discharge planning. pt has his home set up for his needs with elevator and refusing rehab at this time due to Covid 19 risks. Pt was active with [facility] for nurse visit and prefers to continue. CM made referral via ascripts, pt will need F2F for PT/OT/SN at d/c. CM flagged weekend CM staff for potential d/c this weekend and will need AVS faxed at d/c to [phone]. CM to follow as needed. SIGNATURE: Bri Swann RN,BSN PATIENT NAME: Pedro Pablo Sierra DATE: October 11, 2019 TIME: 2:38 PM PAGER/CONTACT #: [phone] Normal [facility] CBCon 10-11-2019 Erythrocyte distribution width (RBC) [Ratio] 15.8 % High 11.5-15.0 [facility] Comment on above: Performed By: #### C KATHY JUAREZ, MG1, PHOS ####[facility] [place], [place] [phone] Hematocrit (Bld) [Volume fraction] 27.2 % Low 39.0-51.0 [facility] Comment on above: Performed By: #### C LARRY BMP, MG1, PHOS ####[place] [address] [place] [phone] Hemoglobin (Bld) [Mass/Vol] 8.9 g/dL Low 13.0-17.0 [facility] Comment on above: Performed By: #### C BC, BMP, MG1, PHOS ####[place] [phone] MCH (RBC) [Entitic mass] 29.4 pG Normal 26.0-34.0 [facility] Comment on above: Performed By: #### C BC, BMP, MG1, PHOS ####[place] [phone] MCHC (RBC) [Mass/Vol] 32.7 g/dL Normal 30.5-36.0 [facility] Comment on above: Performed By: #### C BC, BMP, MG1, PHOS ####[place] [phone] MCV (RBC) [Entitic vol] 89.8 fL Normal 80.0-100.0 [facility] Comment on above: Performed By: #### C BC, BMP, MG1, PHOS ####[place] [phone] Platelet mean volume (Bld) [Entitic vol] 9.9 fL Normal 9.0-12.7 [facility] Comment on above: Performed By: #### C BC, BMP, MG1, PHOS ####[place] [phone] Platelets (Bld) [#/Vol] 140 10*3/uL Low 150-400 [facility] Comment on above: Performed By: #### C BC, BMP, MG1, PHOS ####[place] [phone] RBC (Bld) [#/Vol] 3.03 10*6/uL Low 4.20-6.00 [facility] Comment on above: Performed By: #### C BC, BMP, MG1, PHOS ####[place] [address] [place], [place] [phone] WBC (Bld) [#/Vol] 5.78 10*3/uL Normal 3.70-11.00 [facility] Comment on above: Performed By: #### C BC, BMP, MG1, PHOS ####[facility] [place], [place] [phone] Magnesiumon 10-11-2019 Magnesium [Mass/Vol] 2.0 mg/dL Normal 1.7-2.6 [facility] Comment on above: Performed By: #### C BC, BMP, MG1, PHOS ####[place] [address] [place], [place] [phone] NURSING PROGon 10-11-2019 NURSING PROG HNO ID: [id number] Author: Briana (Rn) ОЛЕГ Hardy Service: ? Author Type: Registered Nurse Type: Nursing Progress Note Filed: 10/11/2019 2:37 PM Note Text: Nursing Progress Note Patient Name: Pedro Pablo Sierra Patient Location: [id number]/[facility]-0 245- __ Daily Note: 0700. Bedside report received from production supervisor off shift RN. Patient is resting comfortably in bed [...] removed. 1408. Report called to RN on [facility] who will be resuming care of patient. 1430. Patient transferred to [facility] via bed on portable O2. All belongings and chart sent with patient. This note was completed by: Briana Hardy RN [facility] PROGRESSon 10-11-2019 PROGRESS HNO ID: [id number] Author: Noman Fish MD Service: Vascular Surgery [...] 1043 -- 10/08/19 1645 pneumatic compression stockings (tn,oh) VTE Prophylaxis: held for bleeding ALLERGIES No [...] - Left: biphasic DATA: Laboratory: Recent Labs 10/11/1932910/10/19199910/10/191458 WBC 5.78 7.33 7.13 HB 8.9* 7.1* 8.3* HCT 27.2* 21.7* 24.9* PLT 140* 167 173 Recent Labs 10/11/1932910/10/19145810/10/19 0559 NA 136 138 136 K 3.9 4.3 3.8 BUN 8* 9* 11 CREAT 0.63* 0.68* 0.69* GLUC 107* 127* 107* MG 2.0 1.8 2.0 Recent Labs 10/10/19199910/10/19145810/10/19 0559 10/09/19 1625 APTT 25.4 126.3* 109.7* [...] CRISPIN stenting on 10/23, UC, CAD previous AK, DM, HTN, HLD, COPD Overall Course: 63 year old male with acute onset of BLE pain. Taken to OR for initiation of thrombolysis thru LCIA/TORITO Procedure/Surgeries: 1. Aortogram with bilateral ileofemoral runoff via left brachial artery 2. Left leg angiogram, 3rd order 3. Placement of lysis catheter from distal aorta to left SFA, 20cm treatment zone AllisonMatt 07/02/2014 Thrombectomy Airway Difficulty: NA OR Course: [...] TIME: 7:24 AM PAGER/CONTACT #: See Below ETX#[id number] For questions Monday through Monday 6am to 6pm please page Red Team [phone] For questions during nights (6pm - 6am) and weekends, please contact the General Surgery [employer] Kettle Tender pager, [phone] [facility] PROGRESS HNO ID: [id number] Author: Rashawn Huntley Service: Critical Care Author Type: Anesthesiologist Type: Progress Notes Filed: 10/11/2019 11:08 AM Note Text: SICU PROGRESS NOTE SERVICE DATE: 10/11/2019 SERVICE TIME: 6:40 AM POD #: / Subjective Interval events (last 24 hours) / [...] CURRENT MEDICATIONS: Medications reviewed. Please refer to [facility] for list of inpatient medications. Current Facility-Administered [...] INTRAVENOUS q 2 H PRN Elly (Res) Josemakova-Jennifer 25 mcg at 10/11/19 0648 - hyoscyamine sublingual 0.25 mg tab(s) (LEVSIN SL) 0.25 mg SUBLINGUAL AC and HS Misael (Res) MD Steffany - amLODIPine 5 mg tab(s) (NORVASC) 5 mg ORAL DAILY Misael (Res) MD Steffany 5 mg at 10/09/19 0755 - carBAMazepine XR 200 mg tab(s) (TEGretol XR) 200 mg ORAL BID Juliana (Yariel) Akshat 200 mg at 10/10/19 2202 - insulin lispro injection (rapid acting) (HumaLOG) SUBCUTANEOUS w MEALS AND HS Juliana (Yariel) Akshat - nicotine 21 mg/24 hr 1 Patch (NICODERM) 1 Patch TRANSDERMAL DAILY Juliana (Yariel) Akshat 1 Patch at 10/10/19 0817 And - nicotine -- REMOVE patch OTHER DAILY Juliana (Yariel) Akshat And - nicotine - verify patch OTHER q 8 H Juliana (Yariel) Akshat - clopidogrel 75 mg tab(s) (PLAVIX) 75 mg ORAL DAILY Roman (Ace) Heinly 75 mg at 10/10/19 0817 - polyethylene glycol 3350 17 g packet (MIRALAX, GLYCOLAX) 17 g ORAL DAILY PRN Elly (Res) Chumakova-Jennifer - docusate sodium 100 mg cap(s) (COLACE) 100 mg ORAL BID Elly (Res) Chumakova-Chapman 100 mg at 10/10/192202 - budesonide 0.25 mg/2 mL 0.25 mg (PULMICORT) 0.25 mg INHALATION BID Elly (Res) Chumakova-Jennifer 0.25 mg at 10/10/192046 And - ipratropium-albuterol 3 mL nebulizer solution (DUONEB) 3 mL INHALATION QID Elly (Res) Chumakova-Chapman 3 mL at 10/10/192046 - NaCl 0.9% iv infusion 100 mL/hr INTRAVENOUS CONTINUOUS Elly (Res) Chumakova-Chapman 100 mL/hr at 10/10/191999 100 mL/hr at 10/10/191999 - NaCl 0.9% 3-5 mL 3-5 mL INTRAVENOUS q 12 H Misael (Azalea) MD Steffany 5 mL at 10/10/19 2100 - ondansetron 4 mg tab(s) (ZOFRAN) 4 mg ORAL q 6 H PRN Misael (Res) MD Steffany Or - ondansetron (PF) 4 mg injection (ZOFRAN) 4 mg INTRAVENOUS q 6 H PRN Misael (Res) MD Steffany 4 mg at 10/09/19 0830 - bisacodyl 10 mg suppository (DULCOLAX) 10 mg RECTAL DAILY PRN Misael (Res) MD Steffany - magnesium hydroxide 400 mg/5 [...] Misael (Azalea) MD Steffany 15 mg at 10/10/192202 - gabapentin 300 mg cap(s) (NEURONTIN) 300 mg ORAL q 12 H Misael (Azalea) MD Steffany 300 mg at 10/10/192202 - pantoprazole DR 40 mg tab(s) (PROTONIX) 40 mg ORAL DAILY (6 AM) Misael Vanegas) MD Steffany 40 mg at 10/11/19 0635 - dextrose 40 % 15 g 15 g ORAL PRN Misael (Azalea) MD Steffany Or - glucagon 1 mg injection (GLUCAGEN) 1 mg INTRAMUSCULAR PRN Misael Vanegas) MD Steffany Or - dextrose 50% in water 25 mL syringe 12.5 g INTRAVENOUS PRN Misael (Azalea) MD Steffany - metoprolol tartrate (short acting) 12.5 mg tab(s) (LOPRESSOR) 12.5 mg ORAL q 12 H Misael Jeter MD 12.5 mg at 10/10/192202 PERTINENT CULTURES: Cultures were reviewed. Pertinent cultures from this hospitalization are listed below. Plese refer to [facility] for a full listing of cultures obtained during this hospitalization. ? N/A DIAGNOSTIC TESTS: The following diagnostic tests/findings were reviewed: ? Most recent labs and imaging results. MOST RECENT CXR FINDINGS: Bibasilar atelectasis. OPERATIVE PROCEDURE(S): Date of surgery: 10/08/19 Procedure: Left common ASSEMBLER FINAL endarterectomy with bovine path Left profundoplasty Left iliac stenting X4 (I-Cast X2, Jessica X2) Multiple angiograms with angioplasty Surgeon: Dr. May Date of surgery: 10/10/19 Procedure: Left EIA to ASSEMBLER FINAL bypass with 7mm ringed PTFE end to end proximally to the previously placed bovine patch end to side distally. Completion angiogram Retrograde open RADAH angioplasty with 8 x 80 mustang balloon. Open thrombectomy L iliac artery by leg incision. Surgeon: Dr. May Assessment/Plan 69 year old male with CAD (EF 60% on 09/12/19), AK in 2005, HTN, HLD, COPD, PJ(on 2L O2 nocturnal), DM, GERD, diverticulosis, anxiety, depression, lupus anticoagulant disorder on Coumadin, chronic low back pain, aortoiliac and left ileofemoral PAD s/p multiple interventions including left femoral endarterectomy/aortoil iac stenting in 10/2013 who underwent a Redo left ASSEMBLER FINAL endarterectomy, left profundoplasty, left iliac stenting with Dr. May on 10/08/19. She is admitted to SICU post-operatively for neurovascular checks and close hemodynamic monitoring. Developed L ASSEMBLER FINAL occlusion POD2 and taken back to OR on 10/10/19 for left groin hematoma evacuation, left EIA to ASSEMBLER FINAL PTFE bypass, left liac thrombectomy. Transferred to [...] -Tubes: Clark -Prophylaxis: SCDs -Dispo: Transfer to [facility] Medication and Non-Pharmacologic VTE Prophylaxis/Anticoagul ants Anticoagulant AND Antiplatelet Medications (From admission, onward) Start Dose Route Frequency Ordered Stop 10/10/19 0900 clopidogrel 75 mg tab(s) (PLAVIX) 75 mg ORAL DAILY 10/09/19 1043 -- 10/08/19 1700 activity - mobilize patient (tn,oh) 10/08/19 1645 pneumatic compression stockings ([place]) VTE Prophylaxis: Contraindicated elevated risk of bleeding To be seen and discussed on rounds with SICU staff: Dr. Huntley ICU Checklist --------- --- VTE Prophylaxis: SIGNATURE: Misael Jeter MD PATIENT NAME: Pedro Pablo Sierra DATE: October 11, 2019 TIME: 6:40 AM PAGER/CONTACT #: [phone] [facility] STAFF PHYSICIAN NOTE OF PERSONAL INVOLVEMENT IN [...] HTN GERD ? Procedure/Surgeon 10/08/19 S/P L ASSEMBLER FINAL endarterectomy with bovine path, profundoplasty and iliac [...] DO 11:08 AM October 11, 2019 Normal [facility] Phosphoruson 10-11-2019 Phosphate [Mass/Vol] 1.9 mg/dL Low 2.5-4.5 [facility] Comment on above: Performed By: #### C BC, BMP, MG1, PHOS ####[facility] [place], [place] [phone] Protimeon 10-11-2019 PT Coag (PPP) [Time] 10.9 s Normal 9.7-13.0 [facility] Comment on above: Performed By: #### P T ####[facility] [place], [place] [phone] PT Coag (PPP) [Time] 1.0 s Normal 0.9-1.3 [facility] Comment on above: Result Comment: Teri min K Antagonist (VKA) Therapeutic Range: INR 2 to 3 (Target INR of 2.5) Note: For patients treated with VKA drugs, such as warfarin, the [employer] [employer] 2012 Guideline recommends [...] Chest 2012, 141:7S-47S Gio RA, et al. [facility] 2017, 70: 252-289 Performed By: #### P T ####[facility] [place], [place] [phone] THERAPY NTon 10-11-2019 THERAPY NT HNO ID: [id number] Author: Gini (Pt) Eugenia Melvin Service: Physical Therapy Author Type: Physical Therapist Type: Therapy (PT/OT/Speech/Resp) Filed: 10/11/2019 10:43 AM Note Text: Physical Therapy Treatment SERVICE DATE: 10/11/2019 SERVICE TIME: 0935 to 1020 ROOM: [place] [address] Recommended Discharge Disposition: Home PT Anticipated Discharge [...] Tolerance Limited By Pain;Other: See Comment(reports of Daisha Rosado) Physical Therapy Problem List: Safety Deficits;Decreased Activity [...] Diagnosis: Reduced mobility-other Interventions Provided: Therapeutic Activity (40573);Therapeutic Exercise (00664);Gait Training (88858) Therapeutic Exercise (68511) Treatment Minutes: 15 1 unit Skilled Intervention(s): Instruction in therapeutic exercise supine, very gentle with Daisha GOOD. Edu on rationale of exercises. Therapeutic Activity (70704) Treatment Minutes: 20 1 unit Skilled Intervention(s): Instructed patient in supine to sit pushing with upper extremities to sit up Instructed patient in supine to and from sit pushing with upper extremities to sit up Instruction in sit to stand technique with proper hand placement and body positioning at edge of bed/chair Gait Training (32753) Treatment Minutes: 10 1 unit Skilled Intervention(s): Instruction in sequencing, gait pattern and Instruction in correction of gait deviations Total Timed Code Treatment Minutes: 45 Total Treatment Time (minutes): 45 SUBJECTIVE: Current Hospital Course: Chart reviewed and no significant medical updates relevant to therapy were noted Reason for Physical Therapy Consult : PVD s/p L LE redo ASSEMBLER FINAL endarterectomy, L profundoplasty, iliac stenting on 10/08/19 Relevant Past Medical History: S/p L femoral endarterectomy/aoroili ac stenting Patient Report: My Left leg is incredibly sore right now, moving is going to have to be slow. (And it is.) Home Environment Patient Lives With: Self/Alone Assistance Available: horse race timer Entry To Home: Stairs;Other: See Comment(stair lift) [...] DATE: October 11, 2019 TIME: 10:40 AM [facility] THERAPY NT HNO ID: [id number] Author: Caitlin (Ot) William Service: Occupational Therapy Author Type: Occupational Therapist Type: Therapy (PT/OT/Speech/Resp) Filed: 10/11/2019 6:48 AM Note Text: OCCUPATIONAL THERAPY MISSED VISIT SERVICE DATE: 10/11/2019 SERVICE TIME: 0647 to 0647 ROOM: [place] [address] Attempted Treatment. Patient not seen due to Incomplete Orders. Pt is currently on bedrest. Please update activity orders when medically appropriate for participation in Occupational Therapy treatment and out of bed mobility. Thank you. SIGNATURE: Caitlin Thomas, OTR/L PATIENT NAME: Pedro Pablo Sierra DATE: October 11, 2019 TIME: 6:47 AM [facility] ABG Complete Eval FOR WEST U SE ONLYon 10-10-2019 Base Excess 1 mmol/L Normal [facility] Comment on above: Result Comment: -3 t o 3 Performed By: #### A BGRTC ####[address] [phone] Calcium [Mass/Vol] 1.29 mmol/L Normal 1.15-1.35 [facility] Comment on above: Performed By: #### A BGRTC ####[address] [phone] Carboxyhemoglobin,Art 1.0 % Normal <2.0 [facility] Comment on above: Performed By: #### A BGRTC ####[address] [phone] Chloride, Whole Bld FOR WEST USE ONLY 105 mmol/L Normal 98-107 [facility] Comment on above: Performed By: #### A BGRTC ####[address] [phone] CO2 [Moles/Vol] 27 mmol/L Normal 22.0-28.0 [facility] Comment on above: Performed By: #### A BGRTC ####[place] [phone] Glucose [Mass/Vol] 132 mg/dL High 65-100 [facility] Comment on above: Performed By: #### A BGRTC ####[place] [phone] HCO3 (Bld) [Moles/Vol] 26 mmol/L Normal 22-26 [facility] Comment on above: Performed By: #### A BGRTC ####[place] [phone] Hematocrit (Bld) [Volume fraction] 26.3 % Low 42.0-52.0 [facility] Comment on above: Performed By: #### A BGRTC ####[place] [phone] Hemoglobin (Bld) [Mass/Vol] 8.5 g/dL Low 14-18 [facility] Comment on above: Performed By: #### A BGRTC ####[place] [phone] Lactate [Moles/Vol] 1.5 mmol/L Normal 0.4-2.0 [facility] Comment on above: Performed By: #### A BGRTC ####[place] [phone] Methemoglobin 1.4 % Normal 0.4-1.5 [facility] Comment on above: Performed By: #### A BGRTC ####[place] [phone] O2 Administered 21.0 Normal [facility] Comment on above: Performed By: #### A BGRTC ####[place] [phone] Oxygen (Bld) [Partial pressure] 136 mm Hg High 80-100 [facility] Comment on above: Performed By: #### A BGRTC ####[place] [phone] Oxygen (Bld) [Partial pressure] 99 % High 90-98 [facility] Comment on above: Performed By: #### A BGRTC ####[place] [phone] Oxyhemoglobin, Art. 96 % Normal 94-100 [facility] Comment on above: Performed By: #### A BGRTC ####[place] [phone] pCO2 46 mm Hg Normal 35-48 [facility] Comment on above: Performed By: #### A BGRTC ####[place] [phone] pH (Bld) 7.37 [pH] Normal 7.35-7.45 [facility] Comment on above: Performed By: #### A BGRTC ####[place] [phone] PO2FI FOR WEST USE ONLY 648 mmHG High 400-500 [facility] Comment on above: Performed By: #### A BGRTC ####[place] [phone] Potassium [Moles/Vol] 3.9 mmol/L Normal 3.5-5.0 [facility] Comment on above: Performed By: #### A BGRTC ####[place] [phone] Sodium [Moles/Vol] 137 mmol/L Normal 135-145 [facility] Comment on above: Performed By: #### A BGRTC ####[place] [phone] Base Excess 2 mmol/L Normal [facility] Comment on above: Result Comment: -3 t o 3 Performed By: #### A BGRTC ####[place] [phone] Calcium [Mass/Vol] 1.09 mmol/L Low 1.15-1.35 [facility] Comment on above: Performed By: #### A BGRTC ####[place] [phone] Carboxyhemoglobin,Art 1.3 % Normal <2.0 [facility] Comment on above: Performed By: #### A BGRTC ####[place] [phone] Chloride, Whole Bld FOR WEST USE ONLY 106 mmol/L Normal 98-107 [facility] Comment on above: Performed By: #### A BGRTC ####[place] [phone] CO2 [Moles/Vol] 28 mmol/L Normal 22.0-28.0 [facility] Comment on above: Performed By: #### A BGRTC ####[place] [phone] Glucose [Mass/Vol] 129 mg/dL High 65-100 [facility] Comment on above: Performed By: #### A BGRTC ####[place] [phone] HCO3 (Bld) [Moles/Vol] 27 mmol/L High 22-26 [facility] Comment on above: Performed By: #### A BGRTC ####[place] [phone] Hematocrit (Bld) [Volume fraction] 24.6 % Low 42.0-52.0 [facility] Comment on above: Performed By: #### A BGRTC ####[place] [phone] Hemoglobin (Bld) [Mass/Vol] 7.9 g/dL Low 14-18 [facility] Comment on above: Performed By: #### A BGRTC ####[place] [phone] Lactate [Moles/Vol] 1.1 mmol/L Normal 0.4-2.0 [facility] Comment on above: Performed By: #### A BGRTC ####[place] [phone] Methemoglobin 1.2 % Normal 0.4-1.5 [facility] Comment on above: Performed By: #### A BGRTC ####[place] [phone] O2 Administered 21.0 Normal [facility] Comment on above: Performed By: #### A BGRTC ####[place] [phone] Oxygen (Bld) [Partial pressure] 164 mm Hg High 80-100 [facility] Comment on above: Performed By: #### A BGRTC ####[place] [phone] Oxygen (Bld) [Partial pressure] 99 % High 90-98 [facility] Comment on above: Performed By: #### A BGRTC ####[place] [phone] Oxyhemoglobin, Art. 97 % Normal 94-100 [facility] Comment on above: Performed By: #### A BGRTC ####[place] [phone] pCO2 44 mm Hg Normal 35-48 [facility] Comment on above: Performed By: #### A BGRTC ####[place] [phone] pH (Bld) 7.40 [pH] Normal 7.35-7.45 [facility] Comment on above: Performed By: #### A BGRTC ####[phone] PO2FI FOR WEST USE ONLY 781 mmHG High 400-500 F [facility] Comment on above: Performed By: #### A BGRTC ####[facility] [place], [place] [phone] Potassium [Moles/Vol] 3.6 mmol/L Normal 3.5-5.0 [facility] Comment on above: Performed By: #### A BGRTC ####[facility] [place], [place] [phone] Sodium [Moles/Vol] 137 mmol/L Normal 135-145 [facility] Comment on above: Performed By: #### A BGRTC ####[facility] [place], [place] [phone] ALLIED HEALTHon 10-10-2019 ALLIED HEALTH HNO ID: [id number] Author: Judie NessRtWilliam Amaya Service: Radiology Author Type: Life Enrichment Director Type: Allied Health Filed: 10/10/2019 6:31 AM [...] RT Víctor October 10, 2019 6:31 AM [facility] ANES PRE-OPon 10-10-2019 ANES PRE-OP HNO ID: [id number] Author: Joey Sequeira Service: ? Author Type: Anesthesiologist Type: [...] (+) Hypertension (+) PVD (peripheral vascular disease) ([facility]) (+) s/p left femoral endarterectomy/aortoil iac stenting 10/08/2019 (now with L ASSEMBLER FINAL occlusion) PULMONARY (+) COPD (chronic obstructive pulmonary disease) ([facility]) (+) PJ (obstructive sleep apnea) ANESTHESIA (+) PJ (obstructive sleep apnea) NEURO-PSYCH (+) Headache GI (+) GERD (gastroesophageal reflux disease) Other (+) Anemia due to acute blood loss (Hgb 7.4 this AM; will order 2 units PRBCs) (+) Lupus anticoagulant disorder ([facility]) I - PHYSICAL EVALUATION AIRWAY Patient intubated: [...] (iso-osmotic) 100 mL (ANCEF) 2 g INTRAVENOUS Metal Reclamation Kettle Tender to OR - NaCl 0.9% iv infusion [...] movements. - COMPOUNDED PRESCRIPTION Aerosol supplies Dx:J44.1 NPI#[id number] - ipratropium-albuterol (DUONEB) 0.5 mg-3 mg(2.5 mg [...] October 10, 2019 TIME: 8:21 AM CSN: [id number] Normal [facility] APTTon 10-10-2019 aPTT Coag (Bld) [Time] 25.4 s Normal 23.0-32.4 [facility] Comment on above: Result Comment: Unfr [...] laboratory APTT reagent in use throughout the [facility]. Performed By: #### C BCDIF, PTT, FIBCT, PT ####[facility] [place], [place] [phone] aPTT Coag (Bld) [Time] 126.3 s High 23.0-32.4 [facility] Comment on above: Result Comment: Unfr [...] laboratory APTT reagent in use throughout the [facility]. Called to and read back by: Landry Quintana RN [facility] 10/10/19 Royce Mccormick Performed By: #### C BCDIF, BMP, MG1, PHOS, PTT, PT ####[place] [id number] [place], [place] [phone] aPTT Coag (Bld) [Time] 44.1 s High 23.0-32.4 [facility] Comment on above: Result Comment: Unfr [...] laboratory APTT reagent in use throughout the [facility]. Performed By: #### P TT ####[address] [phone] Basic Metabolic Panlon 10-09 Anion gap [Moles/Vol] 11 mmol/L Normal 9-18 [facility] Comment on above: Performed By: #### C BCDIF, BMP, MG1, PHOS, PTT, PT ####[place] [address] [place], [place] [phone] Calcium [Mass/Vol] 8.0 mg/dL Low 8.5-10.5 [facility] Comment on above: Performed By: #### C BCDIF, BMP, MG1, PHOS, PTT, PT ####[place] [phone] Chloride [Moles/Vol] 103 mmol/L Normal 98-110 [facility] Comment on above: Performed By: #### C BCDIF, BMP, MG1, PHOS, PTT, PT ####[place] [phone] CO2 [Moles/Vol] 24 mmol/L Normal 23-32 [facility] Comment on above: Performed By: #### C BCDIF, BMP, MG1, PHOS, PTT, PT ####[place] [phone] Creatinine [Mass/Vol] 0.68 mg/dL Low 0.70-1.40 [facility] Comment on above: Performed By: #### C BCDIF, BMP, MG1, PHOS, PTT, PT ####[place] [phone] eGFR- Amer. >60 Normal >60 [facility] Comment on above: Performed By: #### C BCDIF, BMP, MG1, PHOS, PTT, PT ####[place] [phone] GFR/1.73 sq M predicted among non-blacks MDRD (S/P/Bld) [Vol rate/Area] mL/min/{1.73_m2} Normal >60 [facility] Comment on above: Performed By: #### C BCDIF, BMP, MG1, PHOS, PTT, PT ####[place] [phone] Glucose [Mass/Vol] 127 mg/dL High 65-100 [facility] Comment on above: Performed By: #### C BCDIF, BMP, MG1, PHOS, PTT, PT ####[place] [phone] Potassium [Moles/Vol] 4.3 mmol/L Normal 3.5-5.0 [facility] Comment on above: Performed By: #### C BCDIF, BMP, MG1, PHOS, PTT, PT ####[place] [phone] Sodium [Moles/Vol] 138 mmol/L Normal 135-146 [facility] Comment on above: Performed By: #### C BCDIF, BMP, MG1, PHOS, PTT, PT ####[place] [phone] Urea nitrogen [Mass/Vol] 9 mg/dL Low 10-25 [facility] Comment on above: Performed By: #### C BCDIF, BMP, MG1, PHOS, PTT, PT ####[place] [phone] Anion gap [Moles/Vol] 8 mmol/L Low 9-18 [facility] Comment on above: Performed By: #### C BC, BMP, MG1, PHOS ####[place] [phone] Calcium [Mass/Vol] 7.9 mg/dL Low 8.5-10.5 [facility] Comment on above: Performed By: #### C BC, BMP, MG1, PHOS ####[place] [phone] Chloride [Moles/Vol] 101 mmol/L Normal 98-110 [facility] Comment on above: Performed By: #### C BC, BMP, MG1, PHOS ####[place] [phone] CO2 [Moles/Vol] 27 mmol/L Normal 23-32 [facility] Comment on above: Performed By: #### C BC, BMP, MG1, PHOS ####[place] [phone] Creatinine [Mass/Vol] 0.69 mg/dL Low 0.70-1.40 [facility] Comment on above: Performed By: #### C BC, BMP, MG1, PHOS ####[place] [phone] eGFR- Amer. >60 Normal >60 [facility] Comment on above: Performed By: #### C BC, BMP, MG1, PHOS ####[place] [phone] GFR/1.73 sq M predicted among non-blacks MDRD (S/P/Bld) [Vol rate/Area] mL/min/{1.73_m2} Normal >60 [facility] Comment on above: Performed By: #### C BC, BMP, MG1, PHOS ####[place] [phone] Glucose [Mass/Vol] 107 mg/dL High 65-100 [facility] Comment on above: Performed By: #### C BC, BMP, MG1, PHOS ####[place] [phone] Potassium [Moles/Vol] 3.8 mmol/L Normal 3.5-5.0 [facility] Comment on above: Performed By: #### C BC, BMP, MG1, PHOS ####[phone] Sodium [Moles/Vol] 136 mmol/L Normal 135-146 [facility] Comment on above: Performed By: #### C BC, BMP, MG1, PHOS ####[place] [phone] Urea nitrogen [Mass/Vol] 11 mg/dL Normal 10-25 [facility] Comment on above: Performed By: #### C BC, BMP, MG1, PHOS ####[place] [phone] CASE MANAGEMon 10-10-2019 CASE MANAGEM HNO ID: [id number] Author: Bri (Rn) ОЛЕГ Swann Service: Case [...] 10, 2019 TIME: 4:23 PM PAGER/CONTACT #: [phone] Normal [facility] CBCon 10-10-2019 Erythrocyte distribution width (RBC) [Ratio] 16.0 % High 11.5-15.0 [facility] Comment on above: Performed By: #### C BC, BMP, MG1, PHOS ####[place] [phone] Hematocrit (Bld) [Volume fraction] 23.2 % Low 39.0-51.0 [facility] Comment on above: Performed By: #### C BC, BMP, MG1, PHOS ####[place] [phone] Hemoglobin (Bld) [Mass/Vol] 7.5 g/dL Low 13.0-17.0 [facility] Comment on above: Performed By: #### C BC, BMP, MG1, PHOS ####[place] [phone] MCH (RBC) [Entitic mass] 30.1 pG Normal 26.0-34.0 [facility] Comment on above: Performed By: #### C BC, BMP, MG1, PHOS ####[place] [phone] MCHC (RBC) [Mass/Vol] 32.3 g/dL Normal 30.5-36.0 [facility] Comment on above: Performed By: #### C BC, BMP, MG1, PHOS ####[place] [phone] MCV (RBC) [Entitic vol] 93.2 fL Normal 80.0-100.0 [facility] Comment on above: Performed By: #### C BC, BMP, MG1, PHOS ####[place] [phone] Platelet mean volume (Bld) [Entitic vol] 9.8 fL Normal 9.0-12.7 [facility] Comment on above: Performed By: #### C BC, BMP, MG1, PHOS ####[place] [phone] Platelets (Bld) [#/Vol] 180 10*3/uL Normal 150-400 [facility] Comment on above: Performed By: #### C BC, BMP, MG1, PHOS ####[place] [phone] RBC (Bld) [#/Vol] 2.49 10*6/uL Low 4.20-6.00 [facility] Comment on above: Performed By: #### C BC, BMP, MG1, PHOS ####[place] [phone] WBC (Bld) [#/Vol] 6.64 10*3/uL Normal 3.70-11.00 [facility] Comment on above: Performed By: #### C BC, BMP, MG1, PHOS ####[place] [phone] CBC and Differentialon 10-09 Abs Baso 0.03 k/uL Normal <0.11 [facility] Comment on above: Performed By: #### C BCDIF, PTT, FIBCT, PT ####[place] [phone] Abs Elliott 0.69 k/uL Normal <0.87 [facility] Comment on above: Performed By: #### C BCDIF, PTT, FIBCT, PT ####[place] [address] Abs Neut 5.56 k/uL Normal 1.45-7.50 [facility] Comment on above: Performed By: #### C BCDIF, PTT, FIBCT, PT ####[place] [address] Basophils/100 WBC (Bld) 0.4 % Normal [facility] Comment on above: Performed By: #### C BCDIF, PTT, FIBCT, PT ####[place] [address] Eosinophils (Bld) [#/Vol] 10*3/uL Normal <0.46 [facility] Comment on above: Performed By: #### C BCDIF, PTT, FIBCT, PT ####[place] [address] Eosinophils/100 WBC (Bld) 0.3 % Normal [facility] Comment on above: Performed By: #### C BCDIF, PTT, FIBCT, PT ####[place] [address] Erythrocyte distribution width (RBC) [Ratio] 16.9 % High 11.5-15.0 [facility] Comment on above: Performed By: #### C BCDIF, PTT, FIBCT, PT ####[place] [address] Hematocrit (Bld) [Volume fraction] 21.7 % Low 39.0-51.0 [facility] Comment on above: Performed By: #### C BCDIF, PTT, FIBCT, PT ####[place] [address] Hemoglobin (Bld) [Mass/Vol] 7.1 g/dL Low 13.0-17.0 [facility] Comment on above: Performed By: #### C BCDIF, PTT, FIBCT, PT ####[place] [phone] Lymphocytes (Bld) [#/Vol] 1.03 10*3/uL Normal 1.00-4.00 [facility] Comment on above: Performed By: #### C BCDIF, PTT, FIBCT, PT ####[place] [phone] Lymphocytes/100 WBC (Bld) 14.1 % Normal [facility] Comment on above: Performed By: #### C BCDIF, PTT, FIBCT, PT ####[place] [phone] MCH (RBC) [Entitic mass] 29.5 pG Normal 26.0-34.0 [facility] Comment on above: Performed By: #### C BCDIF, PTT, FIBCT, PT ####[place] [phone] MCHC (RBC) [Mass/Vol] 32.7 g/dL Normal 30.5-36.0 [facility] Comment on above: Performed By: #### C BCDIF, PTT, FIBCT, PT ####[place] [phone] MCV (RBC) [Entitic vol] 90.0 fL Normal 80.0-100.0 [facility] Comment on above: Performed By: #### C BCDIF, PTT, FIBCT, PT ####[place] [phone] Monocytes/100 WBC (Bld) 9.4 % Normal [facility] Comment on above: Performed By: #### C BCDIF, PTT, FIBCT, PT ####[place] [phone] Neutrophils/100 WBC (Bld) 75.8 % Normal [facility] Comment on above: Performed By: #### C BCDIF, PTT, FIBCT, PT ####[place] [phone] Platelet mean volume (Bld) [Entitic vol] 10.0 fL Normal 9.0-12.7 [facility] Comment on above: Performed By: #### C BCDIF, PTT, FIBCT, PT ####[place] [phone] Platelets (Bld) [#/Vol] 167 10*3/uL Normal 150-400 [facility] Comment on above: Performed By: #### C BCDIF, PTT, FIBCT, PT ####[place] [phone] RBC (Bld) [#/Vol] 2.41 10*6/uL Low 4.20-6.00 [facility] Comment on above: Performed By: #### C BCDIF, PTT, FIBCT, PT ####[place] [address] WBC (Bld) [#/Vol] 7.33 10*3/uL Normal 3.70-11.00 [facility] Comment on above: Performed By: #### C BCDIF, PTT, FIBCT, PT ####[place] [address] Abs Baso 0.04 k/uL Normal <0.11 [facility] Comment on above: Performed By: #### C BCDIF, BMP, MG1, PHOS, PTT, PT ####[address] Abs Elliott 0.56 k/uL Normal <0.87 [facility] Comment on above: Performed By: #### C BCDIF, BMP, MG1, PHOS, PTT, PT ####[place] [phone] Abs Neut 5.40 k/uL Normal 1.45-7.50 [facility] Comment on above: Performed By: #### C BCDIF, BMP, MG1, PHOS, PTT, PT ####[place] [phone] Basophils/100 WBC (Bld) 0.6 % Normal [facility] Comment on above: Performed By: #### C BCDIF, BMP, MG1, PHOS, PTT, PT ####[place] [phone] DTYPE Auto Diff Normal [facility] Comment on above: Performed By: #### C BCDIF, PTT, FIBCT, PT ####[place] [phone] Performed By: #### C BCDIF, BMP, MG1, PHOS, PTT, PT ####[place] [address] Eosinophils (Bld) [#/Vol] 0.06 10*3/uL Normal <0.46 [facility] Comment on above: Performed By: #### C BCDIF, BMP, MG1, PHOS, PTT, PT ####[address] Eosinophils/100 WBC (Bld) 0.8 % Normal [facility] Comment on above: Performed By: #### C BCDIF, BMP, MG1, PHOS, PTT, PT ####[address] Erythrocyte distribution width (RBC) [Ratio] 16.6 % High 11.5-15.0 [facility] Comment on above: Performed By: #### C BCDIF, BMP, MG1, PHOS, PTT, PT ####[address] Hematocrit (Bld) [Volume fraction] 24.9 % Low 39.0-51.0 [facility] Comment on above: Performed By: #### C BCDIF, BMP, MG1, PHOS, PTT, PT ####[place] [phone] Hemoglobin (Bld) [Mass/Vol] 8.3 g/dL Low 13.0-17.0 [facility] Comment on above: Performed By: #### C BCDIF, BMP, MG1, PHOS, PTT, PT ####[place] [phone] Lymphocytes (Bld) [#/Vol] 1.07 10*3/uL Normal 1.00-4.00 [facility] Comment on above: Performed By: #### C BCDIF, BMP, MG1, PHOS, PTT, PT ####[place] [phone] Lymphocytes/100 WBC (Bld) 15.0 % Normal [facility] Comment on above: Performed By: #### C BCDIF, BMP, MG1, PHOS, PTT, PT ####[place] [phone] MCH (RBC) [Entitic mass] 30.3 pG Normal 26.0-34.0 [facility] Comment on above: Performed By: #### C BCDIF, BMP, MG1, PHOS, PTT, PT ####[place] [phone] MCHC (RBC) [Mass/Vol] 33.3 g/dL Normal 30.5-36.0 [facility] Comment on above: Performed By: #### C BCDIF, BMP, MG1, PHOS, PTT, PT ####[place] [phone] MCV (RBC) [Entitic vol] 90.9 fL Normal 80.0-100.0 [facility] Comment on above: Performed By: #### C BCDIF, BMP, MG1, PHOS, PTT, PT ####[place] [phone] Monocytes/100 WBC (Bld) 7.9 % Normal [facility] Comment on above: Performed By: #### C BCDIF, BMP, MG1, PHOS, PTT, PT ####[address] [phone] Neutrophils/100 WBC (Bld) 75.7 % Normal [facility] Comment on above: Performed By: #### C BCDIF, BMP, MG1, PHOS, PTT, PT ####[address] [phone] Platelet mean volume (Bld) [Entitic vol] 9.8 fL Normal 9.0-12.7 [facility] Comment on above: Performed By: #### C BCDIF, BMP, MG1, PHOS, PTT, PT ####[place] [phone] Platelets (Bld) [#/Vol] 173 10*3/uL Normal 150-400 [facility] Comment on above: Performed By: #### C BCDIF, BMP, MG1, PHOS, PTT, PT ####[place] [phone] RBC (Bld) [#/Vol] 2.74 10*6/uL Low 4.20-6.00 [facility] Comment on above: Performed By: #### C BCDIF, BMP, MG1, PHOS, PTT, PT ####[place] [phone] WBC (Bld) [#/Vol] 7.13 10*3/uL Normal 3.70-11.00 [facility] Comment on above: Performed By: #### C BCDIF, BMP, MG1, PHOS, PTT, PT ####[address] [phone] Fibrinogenon 10-10-2019 Fibrinogen 410 mg/dL High 200-400 [facility] Comment on above: Performed By: #### C BCDIF, PTT, FIBCT, PT ####[address] [phone] HISTORY PHYSICALon 0 HISTORY PHYSICAL HNO ID: [id number] Author: Ryan May MD Service: Vascular Surgery Author Type: Physician Type: HANDP Filed: 10/10/2019 9:03 AM Note Text: As a result of the 09/03/19 order by [facility] Director Libby Harris M.D. to cancel non-essential surgeries that would use PPE, unless special criteria are met, I have reviewed the clinical record for this patient and have determined that the scheduled procedure meets the criteria to go forward because there is a threat of permanent dysfunction of an extremity or organ system. Possible thrombosis of the left ASSEMBLER FINAL graft. Possible hematoma. Plan to reexplore, evacuate hematoma, possible ileo-femoral bypass vs fem-fem bypass. Jermaine May MD Normal [facility] Hematocriton 10-10-2019 Hematocrit (Bld) [Volume fraction] 23.1 % Low 39.0-51.0 [facility] Comment on above: Performed By: #### H CT, HGB ####[place] [address] Hemoglobinon 10-10-2019 Hemoglobin (Bld) [Mass/Vol] 7.4 g/dL Low 13.0-17.0 [facility] Comment on above: Performed By: #### H CT, HGB ####[address] Magnesiumon 10-10-2019 Magnesium [Mass/Vol] 1.8 mg/dL Normal 1.7-2.6 [facility] Comment on above: Performed By: #### C BCDIF, BMP, MG1, PHOS, PTT, PT ####[place] [address] Magnesium [Mass/Vol] 2.0 mg/dL Normal 1.7-2.6 [facility] Comment on above: Performed By: #### C BC, BMP, MG1, PHOS ####[place] [phone] NURSING PROGon 10-10-2019 NURSING PROG HNO ID: [id number] Author: Yeimi NessRn) ОЛЕГ Wong Service: ? Author Type: Registered Nurse Type: Nursing Progress Note Filed: 10/11/2019 7:38 AM Note Text: Nursing Progress Note Patient Name: Pedro Pablo Sierra Patient Location: [id number]/[facility]-0 __ Daily Note: 1899 Received bedside report from Josse AHUJA. 1999 Assessment complete. Please see all flowsheets. 2099 2 units of blood ordered per Dr. Johnson. 2199 Started 1 unit of PRBC per order. 2229 Dr. Johnson and relief charge nurse Daphney rounding on pt. SBAR given. New orders received. 2214 Spoke [id number] with Dr. Johnson. Okay to go by cuff pressure. 2344 Started 1 unit of PRBC per order. 0000 Reassessment complete. Please see all flowsheets. 0130 Dr. Johnson at bedside. SBAR given. Per Dr. Johnson, draw AM labs at 0330. 0400 Reassessment complete. Please see all flowsheets. 0715 Bedside report given to Briana AHUJA. [facility] NURSING PROG HNO ID: [id number] Author: Fran (Rn) ОЛЕГ Quintana Service: Critical Care Author Type: Registered Nurse Type: Nursing Progress Note Filed: 10/10/2019 7:55 PM Note Text: Nursing Progress Note Patient Name: Pedro Pablo Sierra Patient Location: [id number]/-[facility]-0 __ Daily Note: 0800: Full assessment complete. 0810: Talking with Misael, who would like amlodipine held this AM, okay to give metoprolol, and okayed by vascular surgery resident to give plavix. 0830: OR team at bedside. SBAR report. Plan to give cefazolin and PRBCs in OR. [phone]: On the phone with Joseph (pt's ex-) who is concerned because she was not updated on when pt went to surgery and is not getting updates like before via text. Joseph is also stating that she signed papers at [facility] [place] recently transfering Health Care POA into her name. Last AD is from 2013 with Michelle (daughter) as POA. 1042: Page to case management [facility] 245 in OR Mr. Sierra [phone]: Ania (pt's ex-) states that she submitted papers recently while at [facility] [place] that she is healthcare POA. Last AD I see is 2013 that has Michelle Richmond (pt's daughter) as POA. -Josse AHUJA [phone]: pT disoriented to self and time emerging from anesthesia. 1620: Pt calling foundation engineer light stating he is bleeding. Upon assessment, blood seeping gown and chucks pad under pt. Pressure applied to L groin sight. Page to Dr. Jeter (surgical nurse practitioner). 1621: Dr. Jeter at bedside, assuming full control of spontaneous Left groin bleed. 1625: Bleeding controled, page to vascular team. 1630: Vascular team at bedside to assess pt. Pulses assessed, stable. Dressing reinforced with pressure tape per vascular team. Plan to repeat labs at 8pm. Will wait to start heparin after PM labs. Dr. Jeter aware of elivated ptt. 1900: Bedside report given to oncsangita RN. This note was completed by: Fran Quintana RN [facility] NURSING PROG HNO ID: [id number] Author: Chrystal (Rn) ОЛЕГ Jacob Service: Critical Care Author Type: Registered Nurse Type: Nursing Progress Note Filed: 10/10/2019 6:32 AM Note Text: Nursing Progress Note Patient Name: Pedro Pablo Sierra Patient Location: [id number]/-[facility]-0 245-01 __ Daily Note: 190: Bedside handoff received from ОЛГЕ Patel. Patient resting in bed, Heparin gtt verified. Pulses dual checked 1999: Full assessment completed. See doc flowsheets. 0000: Reassessment completed. Pulses still present via dopplar. 0400: Reassessment completed. See doc flowsheets. 0545: Patient pulled out IV. Reduced access. Dr. Moody aware. IV fluids stopped. This note was completed by: Chrystal Jacob RN [facility] OPERATIVE NOon 10-10-2019 OPERATIVE NO HNO ID: [id number] Author: Ryan May MD Service: Vascular Surgery Author Type: Physician Type: Operative Report Filed: 10/10/2019 1:51 PM Note Text: OPERATIVE/PROCEDURE REPORT LOG ID: [id number] Surgery/Procedure Date: 10/10/2019 Incision/Procedure Start Time:9:52 AM Incision Close/Procedure End Time: 13:49 Surgeon(s)/Procedurali st(s) and Recording Studio Internship(s): Surgeon(s) and Role: * Ryan May MD - Primary * Elly (Azalea) Stephanie - Resident - Assisting No Additional Staff Anesthesia: General Procedure(s): Left EIA to ASSEMBLER FINAL bypass with 7mm ringed PTFE end to [...] to side to the patch. The proximal ASSEMBLER FINAL was clamped with four orange clips. Flow [...] DATE: 10/10/2019 TIME: 1:40 PM PAGER/CONTACT #: [facility] PROGRESSon 10-10-2019 PROGRESS HNO ID: [id number] Author: Elly Brown Service: Vascular Surgery Author [...] (iso-osmotic) 100 mL (ANCEF) 2 g INTRAVENOUS Metal Reclamation Kettle Tender to OR - NaCl 0.9% iv infusion [...] 1604 -- 10/08/19 1645 pneumatic compression stockings (tn,oh) VTE Prophylaxis: on hep gtt ALLERGIES No [...] hematoma evacuation, possible thrombectomy, possible fem/fem. 2U foundation engineer to OR Ok to cont. AC Ancef foundation engineer to OR HOSPITALIZATION(S) Indication for admission/procedure: BLE pain Important/Relevant PMH/PSH: s/p left femoral endarterectomy with patch, US guided access RCFA, L profundaplasty, RUFUS recanalization AND stenting, CRISPIN stenting on 10/23, UC, CAD previous AK, DM, HTN, HLD, COPD Overall Course: 63 year old male with acute onset of BLE pain. Taken to OR for initiation of thrombolysis thru LCIA/TORITO Procedure/Surgeries: 1. Aortogram with bilateral ileofemoral runoff via left brachial artery 2. Left leg angiogram, 3rd order 3. Placement of lysis catheter from distal aorta to left SFA, 20cm treatment zone Neela 07/02/2014 Thrombectomy Airway Difficulty: NA OR Course: [...] 10, 2019 TIME: 7:50 AM PAGER/CONTACT #: [phone] [facility] PROGRESS HNO ID: [id number] Author: Rashawn Huntley Service: Critical Care Author [...] CURRENT MEDICATIONS: Medications reviewed. Please refer to [facility] for list of inpatient medications. Current Facility-Administered Medications Medication Dose Route Frequency Provider Last Rate Last Dose - amLODIPine 5 mg tab(s) (NORVASC) 5 mg ORAL DAILY Misael Jeter MD 5 mg at 10/09/19 0755 - carBAMazepine XR 200 mg tab(s) (TEGretol XR) 200 mg ORAL BID Rashawn Medrick 200 mg at 10/09/192123 - insulin lispro injection (rapid acting) (HumaLOG) SUBCUTANEOUS w MEALS AND HS Juliana (Yariel) Akshat - nicotine 21 mg/24 hr 1 Patch (NICODERM) 1 Patch TRANSDERMAL DAILY Juliana (Yariel) Akshat 1 Patch at 10/09/19 1124 And - nicotine -- REMOVE patch OTHER DAILY Juliana (Yariel) Akshat And - nicotine - verify patch OTHER q 8 H Juliana Price) Akshat - clopidogrel 75 mg tab(s) (PLAVIX) 75 mg ORAL DAILY Roman Richey) Heinly - polyethylene glycol 3350 17 g packet (MIRALAX, GLYCOLAX) 17 g ORAL DAILY PRN Roman Richey) Zanderinhenry - docusate sodium 100 mg cap(s) (COLACE) 100 mg ORAL BID Roman Richey) Heinly 100 mg at 10/09/192123 - budesonide 0.25 mg/2 mL 0.25 mg (PULMICORT) 0.25 mg INHALATION BID Juliana Price) Akshat 0.25 mg at 10/09/191901 And - ipratropium-albuterol 3 mL nebulizer solution (DUONEB) 3 mL INHALATION QID Juliana Price) Akshat 3 mL at 10/09/191901 - heparin iv infusion (LOW DOSE ACS/NOMOGRAM) 25,000 units in NaCl 0.45% 250 mL PREMIX 0-3,000 Units/hr INTRAVENOUS CONTINUOUS Misael Jeter MD 11 mL/hr at 10/10/19 001 1,100 Units/hr at 10/10/1911 And - heparin RATE CHANGE bolus 1,000-4,000 Units for subtherapeutic aptt results 1,000-4,000 Units INTRAVENOUS PRN Misael Jeter MD 2,400 Units at 10/10/19 0012 - ceFAZolin iv piggyback 2 g in D5W (iso-osmotic) 100 mL (ANCEF) 2 g INTRAVENOUS Metal Reclamation Kettle Tender to OR Juliana Oden (Pa) - NaCl 0.9% iv infusion 100 mL/hr INTRAVENOUS CONTINUOUS Misael Jeter MD Stopped at 10/10/19 0500 - fentaNYL 50 mcg/mL 25 mcg injection (SUBLIMAZE) 25 mcg INTRAVENOUS q 4 H PRN Misael (Binu Jeter MD - oxyCODONE IR 5-10 mg tab(s) (ROXICODONE) 5-10 mg ORAL q 4 H PRN Misael (Azalea) MD Steffany 5 mg at 10/09/192126 - NaCl 0.9% [...] 1,000 mg ORAL q 6 H Rashawn Huntley 1,000 mg at 10/10/19 0536 - ipratropium-albuterol 3 mL nebulizer solution (DUONEB) 3 mL INHALATION q 4 H PRN Rashawn Huntley - hyoscyamine sublingual 0.25 mg tab(s) (LEVSIN SL) 0.25 mg SUBLINGUAL AC and HS Rashawn Huntley 0.25 mg at 10/10/19 0536 - sertraline 100 mg tab(s) (ZOLOFT) 100 mg ORAL DAILY Rashawn Huntley 100 mg at 10/09/19 0755 - mirtazapine 15 mg (REMERON) 15 mg ORAL AT BEDTIME Rashawn Huntley 15 mg at 10/09/19 2124 - gabapentin 300 mg cap(s) (NEURONTIN) 300 mg ORAL q 12 H Rashawn Huntley 300 mg at 10/09/192123 - pantoprazole DR 40 mg tab(s) (PROTONIX) 40 mg ORAL DAILY (6 AM) Rashawn Medrick 40 mg at 10/10/19 0536 - dextrose 40 % 15 g 15 g ORAL PRN Rashawn Medrick Or - glucagon 1 mg injection (GLUCAGEN) 1 mg INTRAMUSCULAR PRN Rashawn Medpalma Or - dextrose 50% in water 25 mL syringe 12.5 g INTRAVENOUS PRN Rashawn Huntley - metoprolol tartrate (short acting) 12.5 mg tab(s) (LOPRESSOR) 12.5 mg ORAL q 12 H Rashawn Medrick 12.5 mg at 10/09/192123 PERTINENT CULTURES: Cultures were reviewed. Pertinent cultures from this hospitalization are listed below. Plese refer to [facility] for a full listing of cultures obtained during this hospitalization. ? N/A DIAGNOSTIC TESTS: The following diagnostic tests/findings were reviewed: ? Most recent labs and imaging results. MOST RECENT CXR FINDINGS: Increased vascular markings, likely fluid overload. OPERATIVE PROCEDURE(S): Date of surgery: 10/08/19 Procedure: Left common ASSEMBLER FINAL endarterectomy with bovine path Left profundoplasty Left iliac stenting X4 (I-Cast X2, Jessica X2) Multiple angiograms with angioplasty Surgeon: Dr. May Assessment/Plan 69 year old male with CAD (EF 60% on 09/12/19), AK in 2005, HTN, HLD, COPD, PJ(on 2L O2 nocturnal), DM, GERD, diverticulosis, anxiety, depression, lupus anticoagulant disorder on Coumadin, chronic low back pain, aortoiliac and left ileofemoral PAD s/p multiple interventions including left femoral endarterectomy/aortoil iac stenting in 10/2013 who underwent a Redo left ASSEMBLER FINAL endarterectomy, left profundoplasty, left iliac stenting with Dr. May on 10/08/19. She is admitted to SICU post-operatively for neurovascular checks and close hemodynamic monitoring. Developed L ASSEMBLER FINAL occlusion POD2 and going back to OR [...] -- 10/08/19 1700 activity - mobilize patient ([place]) 10/08/19 1645 pneumatic compression stockings ([place]) VTE Prophylaxis: VTE prophylaxis appropriate To be seen and discussed on rounds with SICU staff: Dr. Huntley ICU Checklist --------- --- VTE Prophylaxis: SIGNATURE: Misael Jeter MD PATIENT NAME: Pedro Pablo Sierra DATE: October 10, 2019 TIME: 6:40 AM PAGER/CONTACT #: [phone] [facility] STAFF PHYSICIAN NOTE OF PERSONAL INVOLVEMENT IN [...] HTN GERD ? Procedure/Surgeon 10/08/19 S/P L ASSEMBLER FINAL endarterectomy with bovine path, profundoplasty and iliac [...] with SSI Will evaluate following OR today aRshawn Huntley DO 7:56 AM October 10, 2019 Normal [facility] PTT,Anticoag Therapyon 10-09 aPTT Coag (Bld) [Time] 109.7 s High 23.0-32.4 [facility] Comment on above: Result Comment: Unfr [...] laboratory APTT reagent in use throughout the [facility]. Called to and read back by: Landry Quintana RN [facility] 4/23/20 714 G BUNNY Performed By: #### P TTAC ####[address] [phone] Phosphoruson 10-10-2019 Phosphate [Mass/Vol] 3.0 mg/dL Normal 2.5-4.5 [facility] Comment on above: Performed By: #### C BCDIF, BMP, MG1, PHOS, PTT, PT ####[place] [phone] Phosphate [Mass/Vol] 2.1 mg/dL Low 2.5-4.5 [facility] Comment on above: Performed By: #### C BC, BMP, MG1, PHOS ####[address] [phone] Protimeon 10-10-2019 PT Coag (PPP) [Time] 10.5 s Normal 9.7-13.0 [facility] Comment on above: Performed By: #### C BCDIF, PTT, FIBCT, PT ####[address] [phone] PT Coag (PPP) [Time] 1.0 s Normal 0.9-1.3 [facility] Comment on above: Result Comment: Teri min K Antagonist (VKA) Therapeutic Range: INR 2 to 3 (Target INR of 2.5) Note: For patients treated with VKA drugs, such as warfarin, the [place] [employer] 2012 Guideline recommends [...] GH, et al. Chest 2012, 141:7S-47S Gio RA et al. JACC 2017, 70: 252-289 Performed By: #### C BCDIF, PTT, FIBCT, PT ####[facility] [place], [place] [phone] Performed By: #### C BCDIF, BMP, MG1, PHOS, PTT, PT ####[place] [id number] [place], [place] [phone] PT Coag (PPP) [Time] 10.9 s Normal 9.7-13.0 [facility] Comment on above: Performed By: #### C BCDIF, BMP, MG1, PHOS, PTT, PT ####[facility] [place], [place] [phone] SURGICAL PATHOLOGYon 020 SURGICAL PATHOLOGY Specimen originated from [facility] Specimen #: [id number] Submitting Physician: RYAN MAY FINAL DIAGNOSIS Left [...] x 1.0 cm. No vessel is seen. Night Clerk Auditor sections are submitted in formalin in one cassette. KVB/ka 10/14/2019 Gross examination performed at [facility], [address] [place] [address] Date of Report: 10/15/2019 Date of Procedure: 10/10/2019 Date of Receipt: 10/11/2019 Submitted by: RYAN MAY Location: [facility] Diagnostic interpretation performed at [facility], [address] [place] [address]. CLIA Number: [id number] [facility] THERAPY NTon 10-10-2019 THERAPY NT HNO ID: [id number] Author: Shakir Alicea (Pt) Mode Service: Physical Therapy Author Type: Physical Therapist Type: Therapy (PT/OT/Speech/Resp) Filed: 10/10/2019 1:18 PM Note Text: .PHYSICAL THERAPY MISSED VISIT SERVICE DATE: 10/10/2019 SERVICE TIME: 1317 to 1317 ROOM: [facility] ( OPERATING ROOM) Attempted Treatment. Patient not seen due to Surgery. SIGNATURE: Shakir Coello PT PATIENT NAME: Pedro Pablo Sierra DATE: October 10, 2019 TIME: 1:18 PM [facility] THERAPY NT HNO ID: [id number] Author: Caitlin Thomas Service: Occupational Therapy Author Type: Occupational Therapist Type: Therapy (PT/OT/Speech/Resp) Filed: 10/10/2019 7:37 AM Note Text: OCCUPATIONAL THERAPY MISSED VISIT SERVICE DATE: 10/10/2019 SERVICE TIME: 0736 to 0736 ROOM: [place] [address] Attempted Treatment. Patient not seen due to Surgery. Pt going back to OR. OT tx on hold today. Will continue to monitor. SIGNATURE: Caitlin Thomas OTR/L PATIENT NAME: Pedro Pablo Sierra DATE: October 10, 2019 TIME: 7:36 AM [facility] XR CHEST 1V FRONTAL PORTon 0 10-10-2019 [...] airspace opacities, which may relate to atelectasis. Agile Developer: PSCB Transcribe Date/Time: Oct 10 2019 6:59A Dictated by : DULCE BARRON MD This examination was interpreted and the report reviewed and electronically signed by: DULCE BARRON MD on Oct 10 2019 7:00AM EST [id number] [facility] ALLIED HEALTHon 10-09-2019 ALLIED HEALTH HNO ID: [id number] Author: Markell Alonzo (Chaplain) Service: Spiritual Care Author Type: Director Trade Type: Allied Health Filed: 10/09/2019 5:11 PM [...] patient's RN who could page the on-call park guide. ? To contact the Spiritual Care Department: Please call [phone]?or Page the On-Call Director Trade at pager [phone].??? Thank you for the opportunity to be of service. SIGNATURE: Chaplain Terry PATIENT NAME: Pedro Pablo Sierra DATE: October 09, 2019 TIME: 5:09 PM PAGER/CONTACT #: [phone] [facility] APTTon 10-09-2019 aPTT Coag (Bld) [Time] 20.8 s Low 23.0-32.4 [facility] Comment on above: Result Comment: Unfr [...] laboratory APTT reagent in use throughout the [facility]. Performed By: #### C BC, BMP, MG1, PHOS, PTT, PT ####[place] [phone] Basic Metabolic Panlon 10-08 Anion gap [Moles/Vol] 9 mmol/L Normal 9-18 [facility] Comment on above: Performed By: #### C BC, BMP, MG1, PHOS, PTT, PT ####[place] [phone] Calcium [Mass/Vol] 8.1 mg/dL Low 8.5-10.5 [facility] Comment on above: Performed By: #### C BC, BMP, MG1, PHOS, PTT, PT ####[place] [phone] Chloride [Moles/Vol] 101 mmol/L Normal 98-110 [facility] Comment on above: Performed By: #### C BC, BMP, MG1, PHOS, PTT, PT ####[place] [phone] CO2 [Moles/Vol] 26 mmol/L Normal 23-32 [facility] Comment on above: Performed By: #### C BC, BMP, MG1, PHOS, PTT, PT ####[place] [phone] Creatinine [Mass/Vol] 0.81 mg/dL Normal 0.70-1.40 [facility] Comment on above: Performed By: #### C BC, BMP, MG1, PHOS, PTT, PT ####[place] [phone] eGFR- Amer. >60 Normal >60 [facility] Comment on above: Performed By: #### C BC, BMP, MG1, PHOS, PTT, PT ####[place] [phone] GFR/1.73 sq M predicted among non-blacks MDRD (S/P/Bld) [Vol rate/Area] mL/min/{1.73_m2} Normal >60 [facility] Comment on above: Performed By: #### C BC, BMP, MG1, PHOS, PTT, PT ####[place] [phone] Glucose [Mass/Vol] 129 mg/dL High 65-100 [facility] Comment on above: Performed By: #### C BC, BMP, MG1, PHOS, PTT, PT ####[place] [phone] Potassium [Moles/Vol] 4.5 mmol/L Normal 3.5-5.0 [facility] Comment on above: Performed By: #### C BC, BMP, MG1, PHOS, PTT, PT ####[place] [phone] Sodium [Moles/Vol] 136 mmol/L Normal 135-146 [facility] Comment on above: Performed By: #### C BC, BMP, MG1, PHOS, PTT, PT ####[place] [phone] Urea nitrogen [Mass/Vol] 15 mg/dL Normal 10-25 [facility] Comment on above: Performed By: #### C BC, BMP, MG1, PHOS, PTT, PT ####[place] [phone] CASE MANAGEMon 10-09-2019 CASE MANAGEM HNO ID: [id number] Author: Carly NessRn) Donovan RN Service: Case Management Author Type: [...] once a week. Pt nurse is from [facility] ). Carmen would like AVS faxed at d/c to [phone] SIGNATURE: Carly Man RN,BSN PATIENT NAME: Pedro Pablo Sierra DATE: October 09, 2019 TIME: 1:44 PM PAGER/CONTACT #: [phone] [facility] CASE MGT INIT [facility] 2019 CASE MGT INIT [facility] HNO ID: [id number] Author: aCrly Hutchison) ОЛЕГ Man Service: Case Management Author Type: Registered Nurse Type: Care Mgt Initial Assessment Filed: 10/09/2019 12:41 PM Note Text: CARE MANAGEMENT: ASSESSMENT AND DISCHARGE PLAN SERVICE DATE: October 09, 2019 SERVICE TIME: 1240 PRIMARY CARE PHYSICIAN: DAIJA MORTON MD ADMISSION STATUS: Inpatient Needs Prior to Discharge: To Be Determined MEDICAL: [facility] MEDICARE Patient/Night Clerk Auditor Stated Goals: To improve my functional status;To have reduction in symptoms;To return home to life as it was Health Insurance: Medicare;Medicaid Health Issues Impacting Discharge Plan: Newly diagnosed;Chronic Newly Diagnosed: s/p Redo left ASSEMBLER FINAL endarterectomy, left profundoplasty, left iliac stenting Chronic: HTN, HLD, COPD, 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 Last discharge within 30 days: No Advance Directive: Current Advance Directive: Health Care Power of Body Service Team Member;Living Will In Chart: Yes Up To Date [...] Extended Emergency Contact Information Primary Emergency Contact: RubénMichelle Mobile Relation: Daughter Secondary Emergency Contact: Joseph [...] Completely I feel financially burdened by my lhx-di-usakku expenses for my prescription medication:: 0 - Disagree Completely Risk Score: 0 Patient is categorized as: Low risk < 2 Are you interested in bedside delivery of your medications? No Is Patient Psychosocially Complex?: No ASSESSMENT AND PLAN: Medical Needs: Medical Needs: Two or more chronic diseases;Fall risk or frequent falls Psychosocial Needs: Psychosocial Needs: None FREEDOM OF CHOICE EXPLAINED: [place] of Choice Given: No Reason Not Given: No placements necessary POTENTIAL TRANSITION PLANS To Be Determined 69 yo male admitted for vascular procedure, vascular surgery following. 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 Pt states B/B [...] 09, 2019 TIME: 12:26 PM PAGER/CONTACT #: [phone] Normal [facility] CBCon 10-09-2019 Erythrocyte distribution width (RBC) [Ratio] 15.7 % High 11.5-15.0 [facility] Comment on above: Performed By: #### C BC, BMP, MG1, PHOS, PTT, PT ####[address] [phone] Hematocrit (Bld) [Volume fraction] 28.4 % Low 39.0-51.0 [facility] Comment on above: Performed By: #### C BC, BMP, MG1, PHOS, PTT, PT ####[address] [phone] MCH (RBC) [Entitic mass] 30.2 pG Normal 26.0-34.0 [facility] Comment on above: Performed By: #### C BC, BMP, MG1, PHOS, PTT, PT ####[address] [phone] MCHC (RBC) [Mass/Vol] 32.7 g/dL Normal 30.5-36.0 [facility] Comment on above: Performed By: #### C BC, BMP, MG1, PHOS, PTT, PT ####[place] [phone] MCV (RBC) [Entitic vol] 92.2 fL Normal 80.0-100.0 [facility] Comment on above: Performed By: #### C BC, BMP, MG1, PHOS, PTT, PT ####[place] [phone] Platelet mean volume (Bld) [Entitic vol] 9.9 fL Normal 9.0-12.7 [facility] Comment on above: Performed By: #### C BC, BMP, MG1, PHOS, PTT, PT ####[place] [phone] Platelets (Bld) [#/Vol] 220 10*3/uL Normal 150-400 [facility] Comment on above: Performed By: #### C BC, BMP, MG1, PHOS, PTT, PT ####[place] [phone] RBC (Bld) [#/Vol] 3.08 10*6/uL Low 4.20-6.00 [facility] Comment on above: Performed By: #### C BC, BMP, MG1, PHOS, PTT, PT ####[place] [phone] WBC (Bld) [#/Vol] 7.77 10*3/uL Normal 3.70-11.00 [facility] Comment on above: Performed By: #### C BC, BMP, MG1, PHOS, PTT, PT ####[place] [phone] CBC and Differentialon 10-08 Abs Baso <0.03 Normal <0.11 [facility] Comment on above: Performed By: #### C BCDIF ####[place] [phone] Abs Elliott 0.50 k/uL Normal <0.87 [facility] Comment on above: Performed By: #### C BCDIF ####[place] [phone] Abs Neut 5.57 k/uL Normal 1.45-7.50 [facility] Comment on above: Performed By: #### C BCDIF ####[place] [phone] Basophils/100 WBC (Bld) 0.3 % Normal [facility] Comment on above: Performed By: #### C BCDIF ####[place] [phone] DTYPE Auto Diff Normal [facility] Comment on above: Performed By: #### C BCDIF ####[place] [phone] Eosinophils (Bld) [#/Vol] 10*3/uL Normal <0.46 [facility] Comment on above: Performed By: #### C BCDIF ####[place] [phone] Eosinophils/100 WBC (Bld) 0.1 % Normal [facility] Comment on above: Performed By: #### C BCDIF ####[address] Erythrocyte distribution width (RBC) [Ratio] 16.0 % High 11.5-15.0 [facility] Comment on above: Performed By: #### C BCDIF ####[place] [phone] Hematocrit (Bld) [Volume fraction] 28.9 % Low 39.0-51.0 [facility] Comment on above: Performed By: #### C BCDIF ####[place] [phone] Hemoglobin (Bld) [Mass/Vol] 9.3 g/dL Low 13.0-17.0 [facility] Comment on above: Performed By: #### C BCDIF ####[place] [phone] Performed By: #### C BC, BMP, MG1, PHOS, PTT, PT ####[place] [phone] Lymphocytes (Bld) [#/Vol] 1.19 10*3/uL Normal 1.00-4.00 [facility] Comment on above: Performed By: #### C BCDIF ####[place] [phone] Lymphocytes/100 WBC (Bld) 16.3 % Normal [facility] Comment on above: Performed By: #### C BCDIF ####[place] [phone] MCH (RBC) [Entitic mass] 30.0 pG Normal 26.0-34.0 [facility] Comment on above: Performed By: #### C BCDIF ####[place] [phone] MCHC (RBC) [Mass/Vol] 32.2 g/dL Normal 30.5-36.0 [facility] Comment on above: Performed By: #### C BCDIF ####[place] [phone] MCV (RBC) [Entitic vol] 93.2 fL Normal 80.0-100.0 [facility] Comment on above: Performed By: #### C BCDIF ####[place] [phone] Monocytes/100 WBC (Bld) 6.9 % Normal [facility] Comment on above: Performed By: #### C BCDIF ####[place] [phone] Neutrophils/100 WBC (Bld) 76.4 % Normal [facility] Comment on above: Performed By: #### C BCDIF ####[address] [phone] Platelet mean volume (Bld) [Entitic vol] 9.8 fL Normal 9.0-12.7 [facility] Comment on above: Performed By: #### C BCDIF ####[place] [id number] [place], [place] [phone] Platelets (Bld) [#/Vol] 200 10*3/uL Normal 150-400 [facility] Comment on above: Performed By: #### C BCDIF ####[place] [address] [place], [place] [phone] RBC (Bld) [#/Vol] 3.10 10*6/uL Low 4.20-6.00 [facility] Comment on above: Performed By: #### C BCDIF ####[place] [phone] WBC (Bld) [#/Vol] 7.29 10*3/uL Normal 3.70-11.00 [facility] Comment on above: Performed By: #### C BCDIF ####[place] [id number] [place], [place] [phone] MEDICAL [facility] 10-09-2019 [facility] HNO ID: [id number] Author: Misael Jeter MD Service: Critical Care [...] Jeter MD General Surgery Resident PGY2 Pager: [phone] 10/09/2019 5:11 PM Normal [facility] Magnesiumon 10-09-2019 Magnesium [Mass/Vol] 2.1 mg/dL Normal 1.7-2.6 [facility] Comment on above: Result Comment: Revi ewed Performed By: #### C BC, BMP, MG1, PHOS, PTT, PT ####[facility] [place], [place] [phone] NURSING PROGon 10-09-2019 NURSING PROG HNO ID: [id number] Author: Amanda NessRn) Elie, RN Service: Nursing Author Type: Registered Nurse Type: Nursing Progress Note Filed: 10/09/2019 6:36 PM Note Text: Nursing Progress Note Patient Name: Pedro Pablo Sierra Patient Location: [id number]/[facility] Critical access hospital __ Daily Note: 1745: Bedside handoff received from ОЛЕГ Shields. 1800: Dr. Fish at bedside. Patient c/o numbness in left leg. Bilateral DP and PT pulses doppled. Dr. Fish obtaining consent for surgery tomorrow. 1900: Bedside handoff given to ОЛЕГ Jarrell. This note was completed by: Amanda Delgadillo RN [facility] NURSING PROG HNO ID: [id number] Author: Cornelius Gonzalez RN Service: Nursing Author Type: Registered Nurse Type: Nursing Progress Note Filed: 10/09/2019 5:39 PM Note Text: Nursing Progress Note Patient Name: Pedro Pablo Sierra Patient Location: [id number]/-[facility]-0 245 __ Daily Note: 0700 Bedside report received from previous shift RN. 0800 Assessment completed and charted. Neuro intact. VSS. Pulses present via doppler. See flowsheets. 1200 Assessment completed and charted. 1600 Reassessment completed and charted. 1729 Heparin gtt started. See AUG. 1744 Bedside report given to Tigist AHUJA. 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 2L O2 nocturnal), DM, GERD, diverticulosis, anxiety, depression, lupus anticoagulant disorder on Coumadin, chronic low back pain, aortoiliac and left ileofemoral PAD s/p multiple interventions including left femoral endarterectomy/aortoil iac stenting in 10/2013 who underwent a Redo left ASSEMBLER FINAL endarterectomy, left profundoplasty, left iliac stenting with [...] and weekends please page the Group Pager [phone] [facility] PROGRESSon 10-09-2019 PROGRESS HNO ID: [id number] Author: Noman Fish MD Service: Vascular Surgery Author Type: Resident Type: Progress Notes Filed: 10/09/2019 8:36 AM Note Text: Attestation signed by Roberto Lowry) Johny at 10/10/2019 12:35 AM STAFF PHYSICIAN ADDENDUM: [...] duplex US shows no flow in L ASSEMBLER FINAL. Formal arterial duplex of LLE shows occluded ASSEMBLER FINAL. Plan for exploration and revascularization with Dr. 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 ETX#[phone] For questions Monday through Monday 6am to 6pm please page Red Team [phone] For questions during nights (6pm - 6am) and weekends, please contact the General Surgery Metal Reclamation Kettle Tender pager, [phone] [facility] PROGRESS HNO ID: [id number] Author: Rashawn Huntley Service: Critical Care Author [...] at 10/08/19 2205 100 mL/hr at 10/08/19 220 - fentaNYL 50 mcg/mL 50 mcg injection [...] mg ORAL q 4 H PRN Rashawn Huntley 10 mg at 10/09/19 0624 - acetaminophen 1,000 mg tab(s) (TYLENOL) 1,000 mg ORAL q 6 H Rashawn Petersonrick 1,000 mg at 10/09/19 0624 - ipratropium-albuterol 3 mL nebulizer solution (DUONEB) 3 mL INHALATION q 4 H PRN Rashawn Huntley - hyoscyamine sublingual 0.25 mg tab(s) (LEVSIN SL) 0.25 mg SUBLINGUAL AC and HS Rashawn Huntley 0.25 mg at 10/09/19 0625 - sertraline 100 mg tab(s) (ZOLOFT) 100 mg ORAL DAILY Rashawn Huntley 100 mg at 10/08/19 1809 - mirtazapine 15 mg (REMERON) 15 mg ORAL AT BEDTIME Rashawn Medrick 15 mg at 10/08/192102 - carBAMazepine 200 mg tab(s) (TEGretol) 200 mg ORAL BID Rashawn Medrick 200 mg at 10/08/192102 - gabapentin 300 mg cap(s) (NEURONTIN) 300 mg ORAL q 12 H Rashawn Medrick 300 mg at 10/08/191807 - pantoprazole DR 40 mg tab(s)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 03-29-2023 19:22-0400 Body mass index (BMI) [Ratio] 21.9 kg/m2 Dr. Daija Morton Work Phone: 3(901)916-409615 [place] [address] 03-29-2023 19:22-0400 Body weight 65.[address] Daija Morton Work Phone: 9(096)496-982815 [place] [address] 03-29-2023 19:20-0400 Diastolic blood pressure 80 mm[Hg] Dr. Daija Morton Work Phone: 2(632)905-547260 [place] [address] 03-29-2023 19:20-0400 Heart rate 84 /min Dr. Daija Morton Work Phone: 2(374)837-995160 [place] [address] 03-29-2023 19:20-0400 Respiratory rate 18 /min Dr. Daija Morton Work Phone: 1(270)171-892115 [place] [address] 03-29-2023 19:20-0400 SaO2% (BldA) [Mass fraction] 92 % Dr. Daija Morton Work Phone: 1(172)764-945715 [place] [address] 03-29-2023 19:20-0400 Systolic blood pressure 195 mm[Hg] Dr. Daija Morton Work Phone: 7(950)711-819715 [place] [address] 03-29-2023 18:17-0400 Body temperature 97.6 [degF] Dr. Daija Morton Work Phone: 4(300)861-109015 [place] [address] 02-25-2023 19:41-0400 Diastolic blood pressure 87 mm[Hg] Dr. Daija Morton Work Phone: 1(842)984-539415 [place] [address] 02-25-2023 19:41-0400 Heart rate 67 /min Dr. Daija Morton Work Phone: 4(651)348-385815 [place] [address] 02-25-2023 19:41-0400 Respiratory rate 15 /min Dr. Daija Morton Work Phone: 1(907)079-644515 [place] [address] 02-25-2023 19:41-0400 SaO2% (BldA) [Mass fraction] 97 % Dr. Daija Morton Work Phone: 4(761)830-329715 [place] [address] 02-25-2023 19:41-0400 Systolic blood pressure 193 mm[Hg] Dr. Daija Morton Work Phone: 8(260)539-786615 [place] [address] 02-25-2023 19:37-0400 Body mass index (BMI) [Ratio] 22.4 kg/m2 Dr. Daija Morton Work Phone: 3(498)920-998015 [place] [address] 02-25-2023 19:37-0400 Body weight 67.[address] Daija Morton Work Phone: [facility] 02-25-2023 17:22-0400 Body temperature 97 [degF] Dr. Daija Morton Work Phone: [facility] 02-18-2023 01:56-0400 Diastolic blood pressure 113 mm[Hg] [facility] 02-18-2023 01:56-0400 Heart rate 88 /min [facility] 02-18-2023 01:56-0400 Respiratory rate 16 /min [facility] 02-18-2023 01:56-0400 Systolic blood pressure 157 mm[Hg] [facility] 02-18-2023 01:00-0400 SaO2% (BldA) [Mass fraction] 98 % [facility] 02-17-2023 21:35-0400 Body mass index (BMI) [Ratio] 21.5 kg/m2 [facility] 02-17-2023 21:35-0400 Body weight 66.13 kg [facility] 02-17-2023 21:32-0400 Body height 175.26 cm [facility] 02-17-2023 21:32-0400 Body temperature 96.4 [degF] [facility] 12-31-2022 15:16-0400 Body height 173 cm [facility] 12-31-2022 15:16-0400 Body mass index (BMI) [Ratio] 21.7 kg/m2 [facility] 12-31-2022 15:16-0400 Body temperature 96.6 [degF] [facility] 12-31-2022 15:16-0400 Body weight 65.2 kg [facility] 12-31-2022 15:16-0400 Diastolic blood pressure 66 mm[Hg] [facility] 12-31-2022 15:16-0400 Heart rate 75 /min [facility] 12-31-2022 15:16-0400 Respiratory rate 15 /min [facility] 12-31-2022 15:16-0400 SaO2% (BldA) [Mass fraction] 93 % [facility] 12-31-2022 15:16-0400 Systolic blood pressure 118 mm[Hg] [facility] 12-26-2022 14:04-0400 Diastolic blood pressure 90 mm[Hg] Ryan May MD Work Phone: [facility] 12-26-2022 14:04-0400 Heart rate 50 /min Ryan May MD Work Phone: [facility] 12-26-2022 14:04-0400 Systolic blood pressure 207 mm[Hg] Ryan May MD Work Phone: [facility] 10-22-2022 21:40-0400 Diastolic Blood Pressure Non-Invasive [address] PRIYANKA FRANCO MD [facility] 10-22-2022 21:40-0400 Heart rate 88 /min DR PRIYANKA FRANCO MD [facility] 10-22-2022 21:40-0400 Respiratory rate 20 /min DR PRIYANKA FRANCO MD [facility] 10-22-2022 21:40-0400 Systolic Blood Pressure Non-Invasive [address] PRIYANKA FRANCO MD [facility] 10-22-2022 19:59-[address] PRIYANKA FRANCO MD [facility] 10-22-2022 19:59-0400 Body temperature 98.6 [degF] DR PRIYANKA FRANCO MD [facility] 10-22-2022 19:59-0400 Diastolic Blood Pressure Non-Invasive [address] PRIYANKA FRANCO MD [facility] 10-22-2022 19:59-0400 Heart rate 97 /min DR PRIYANKA FRANCO MD [facility] 10-22-2022 19:59-0400 Respiratory rate 21 /min DR PRIYANKA FRANCO MD [facility] 10-22-2022 19:59-0400 Systolic Blood Pressure Non-Invasive [address] PRIYANKA FRANCO MD [facility] 10-21-2022 18:30-0400 Body height 172.72 cm [facility] 10-21-2022 18:30-0400 Body temperature 97.5 [degF] [facility] 10-21-2022 18:30-0400 Diastolic blood pressure 88 mm[Hg] [facility] 10-21-2022 18:30-0400 Heart rate 99 /min [facility] 10-21-2022 18:30-0400 Respiratory rate 16 /min [facility] 10-21-2022 18:30-0400 SaO2% (BldA) [Mass fraction] 96 % [facility] 10-21-2022 18:30-0400 Systolic blood pressure 168 mm[Hg] [facility] 08-27-2022 10:51-0500 Diastolic blood pressure 91 mm[Hg] Daija Morton MD Work Phone: [facility] 08-27-2022 10:51-0500 Heart rate 69 /min Daija Morton MD Work Phone: [facility] 08-27-2022 10:51-0500 Systolic blood pressure 212 mm[Hg] Daija Morton MD Work Phone: [facility] 08-27-2022 10:47-0500 Body temperature 97 [degF] Daija Morton MD Work Phone: [facility] 08-27-2022 10:47-0500 Body weight 71.22 kg Daija Morton MD Work Phone: [facility] 08-27-2022 10:47-0500 Respiratory rate 28 /min Daija Morton MD Work Phone: [facility] 08-27-2022 10:47-0500 SaO2% (BldA) [Mass fraction] 95 % Daija Morton MD Work Phone: [facility] 03-10-2022 10:10-0400 Diastolic blood pressure 90 mm[Hg] Anjel Older POULTRY PACKER.PATIENT SERVICES MANAGER Work Phone: [facility] 03-10-2022 10:10-0400 Heart rate 88 /min Anjel Older POULTRY PACKER.PATIENT SERVICES MANAGER Work Phone: [facility] 03-10-2022 10:10-0400 Respiratory rate 16 /min Anjel Older POULTRY PACKER.PATIENT SERVICES MANAGER Work Phone: [facility] 03-10-2022 10:10-0400 Systolic blood pressure 158 mm[Hg] Anjel Older POULTRY PACKER.PATIENT SERVICES MANAGER Work Phone: [facility] 03-08-2022 23:13-0400 Diastolic blood pressure 93 mm[Hg] Dr. Daija Morton Work Phone: [facility] Work Phone: 03-08-2022 23:13-0400 Heart rate 71 /min Dr. Daija Morton Work Phone: [facility] Work Phone: 03-08-2022 23:13-0400 Inhaled oxygen flow rate 3 L/min Dr. Daija Morton Work Phone: [facility] Work Phone: 03-08-2022 23:13-0400 Respiratory rate 16 /min Dr. Daija Morton Work Phone: [facility] Work Phone: 03-08-2022 23:13-0400 SaO2% (BldA) [Mass fraction] 96 % Dr. Daija Morton Work Phone: [facility] Work Phone: 03-08-2022 23:13-0400 Systolic blood pressure 178 mm[Hg] Dr. Daija Morton Work Phone: [facility] Work Phone: 03-08-2022 17:31-0400 Body height 172.[address] Daija Morton Work Phone: [facility] Work Phone: 03-08-2022 17:31-0400 Body mass index (BMI) [Ratio] 20.5 kg/m2 Dr. Daija Morton Work Phone: [facility] Work Phone: 03-08-2022 17:31-0400 Body temperature 97.6 [degF] Dr. Daija Morton Work Phone: [facility] Work Phone: 03-08-2022 17:31-0400 Body weight 61.[address] Daija Morton Work Phone: [facility] Work Phone: 03-07-2022 17:28-0400 Respiratory rate 18 /min Dr. Daija Morton Work Phone: [facility] Work Phone: 03-07-2022 15:23-0400 Body height 172.[address] Daija Morton Work Phone: [facility] Work Phone: 03-07-2022 15:23-0400 Body mass index (BMI) [Ratio] 20.5 kg/m2 Dr. Daija Morton Work Phone: [facility] Work Phone: 03-07-2022 15:23-0400 Body temperature 97.4 [degF] Dr. Daija Morton Work Phone: [facility] Work Phone: 03-07-2022 15:23-0400 Body weight 61.[address] Daija Morton Work Phone: [facility] Work Phone: 03-07-2022 15:23-0400 Diastolic blood pressure 88 mm[Hg] Dr. Daija Morton Work Phone: [facility] Work Phone: 03-07-2022 15:23-0400 Heart rate 84 /min Dr. Daija Morton Work Phone: [facility] Work Phone: 03-07-2022 15:23-0400 SaO2% (BldA) [Mass fraction] 93 % Dr. Daija Morton Work Phone: [facility] Work Phone: 03-07-2022 15:23-0400 Systolic blood pressure 193 mm[Hg] Dr. Daija Morton Work Phone: [facility] Work Phone: 03-02-2022 19:05-0400 Diastolic blood pressure 81 mm[Hg] Dr. Daija Morton Work Phone: [facility] Work Phone: 03-02-2022 19:05-0400 Heart rate 56 /min Dr. Daija Morton Work Phone: [facility] Work Phone: 03-02-2022 19:05-0400 Respiratory rate 18 /min Dr. Daija Morton Work Phone: [facility] Work Phone: 03-02-2022 19:05-0400 SaO2% (BldA) [Mass fraction] 92 % Dr. Daija Morton Work Phone: [facility] Work Phone: 03-02-2022 19:05-0400 Systolic blood pressure 209 mm[Hg] Dr. Daija Morton Work Phone: [facility] Work Phone: 03-02-2022 17:41-0400 Body temperature 97.5 [degF] Dr. Daija Morton Work Phone: [facility] Work Phone: 03-02-2022 15:10-0400 Body height 172.[address] Daija Morton Work Phone: [facility] Work Phone: 03-02-2022 15:10-0400 Body mass index (BMI) [Ratio] 23.5 kg/m2 Dr. Daija Morton Work Phone: [facility] Work Phone: 03-02-2022 15:10-0400 Body weight 70.[address] Daija Morton Work Phone: [facility] Work Phone: 01-31-2022 13:59-0400 Body height 172.7 cm Ryan May MD Work Phone: [facility] 01-31-2022 13:59-0400 Body weight 68.49 kg Ryan May MD Work Phone: [facility] 01-31-2022 13:59-0400 Diastolic blood pressure 99 mm[Hg] Ryan May MD Work Phone: [facility] 01-31-2022 13:59-0400 Systolic blood pressure 168 mm[Hg] Ryan May MD Work Phone: [facility] 01-28-2022 15:53-0400 Diastolic blood pressure 88 mm[Hg] Dr. Daija Morton Work Phone: [facility] Work Phone: 01-28-2022 15:53-0400 Heart rate 54 /min Dr. Daija Morton Work Phone: [facility] Work Phone: 01-28-2022 15:53-0400 Respiratory rate 20 /min Dr. Daija Morton Work Phone: [facility] Work Phone: 01-28-2022 15:53-0400 SaO2% (BldA) [Mass fraction] 97 % Dr. Daija Morton Work Phone: [facility] Work Phone: 01-28-2022 15:53-0400 Systolic blood pressure 200 mm[Hg] Dr. Daija Morton Work Phone: [facility] Work Phone: 01-28-2022 14:03-0400 Body height 172.[address] Daija Morton Work Phone: [facility] Work Phone: 01-28-2022 14:03-0400 Body mass index (BMI) [Ratio] 22.9 kg/m2 Dr. Daija Morton Work Phone: [facility] Work Phone: 01-28-2022 14:03-0400 Body temperature 96.8 [degF] Dr. Daija Morton Work Phone: [facility] Work Phone: 01-28-2022 14:03-0400 Body weight 68.[address] Daija Morton Work Phone: [facility] Work Phone: 01-28-2022 11:41-0400 Diastolic blood pressure 92 mm[Hg] Anjel Older POULTRY P[employer]ER.PATIENT SERVICES MANAGER Work Phone: [facility] 01-28-2022 11:41-0400 Heart rate 56 /min Anjel Older POULTRY PACKER.PATIENT SERVICES MANAGER Work Phone: [facility] 01-28-2022 11:41-0400 Systolic blood pressure 200 mm[Hg] Anjel Older POULTRY PACKER.PATIENT SERVICES MANAGER Work Phone: [facility] 01-28-2022 10:57-0400 Body weight 68.49 kg Anjel Older POULTRY PACKER.PATIENT SERVICES MANAGER Work Phone: [facility] 01-28-2022 10:57-0400 Respiratory rate 16 /min Anjel Older POULTRY PACKER.PATIENT SERVICES MANAGER Work Phone: [facility] 01-20-2022 13:23-0400 Diastolic blood pressure 102 mm[Hg] Ye Coello MD Work Phone: [facility] 01-20-2022 13:23-0400 Heart rate 61 /min Ye Coello MD Work Phone: [facility] 01-20-2022 13:23-0400 SaO2% (BldA) [Mass fraction] 94 % Ye Coello MD Work Phone: [facility] 01-20-2022 13:23-0400 Systolic blood pressure 172 mm[Hg] Ye Coello MD Work Phone: [facility] 01-14-2022 10:26-0400 Body temperature 98.2 [degF] Harriett Albert POULTRY PACKER.REVIEW COORDINATOR Work Phone: [facility] 01-14-2022 10:26-0400 Body weight 69.67 kg Harriett Albert POULTRY PACKER.REVIEW COORDINATOR Work Phone: [facility] 01-14-2022 10:26-0400 Diastolic blood pressure 80 mm[Hg] Harriett Albert POULTRY PACKER.REVIEW COORDINATOR Work Phone: [facility] 01-14-2022 10:26-0400 Heart rate 78 /min Harriett Albert POULTRY PACKER.REVIEW COORDINATOR Work Phone: [facility] 01-14-2022 10:26-0400 Respiratory rate 16 /min Harriett Albert POULTRY PACKER.REVIEW COORDINATOR Work Phone: [facility] 01-14-2022 10:26-0400 SaO2% (BldA) [Mass fraction] 95 % Harriett Albert POULTRY PACKER.REVIEW COORDINATOR Work Phone: [facility] 01-14-2022 10:26-0400 Systolic blood pressure 186 mm[Hg] Harriett Albert POULTRY PACKER.REVIEW COORDINATOR Work Phone: [facility] 11-30-2021 15:02-0400 Heart rate 75 /min Dr. Daija Morton Work Phone: [facility] Work Phone: 11-30-2021 15:02-0400 Respiratory rate 17 /min Dr. Daija Morton Work Phone: [facility] Work Phone: 11-30-2021 13:57-0400 Body temperature 97.4 [degF] Dr. Daija Morton Work Phone: [facility] Work Phone: 11-30-2021 13:57-0400 Diastolic blood pressure 67 mm[Hg] Dr. Daija Morton Work Phone: [facility] Work Phone: 11-30-2021 13:57-0400 SaO2% (BldA) [Mass fraction] 93 % Dr. Daija Morton Work Phone: [facility] Work Phone: 11-30-2021 13:57-0400 Systolic blood pressure 161 mm[Hg] Dr. Daija Morton Work Phone: [facility] Work Phone: 11-30-2021 11:25-0400 Inhaled oxygen flow rate 3 L/min Dr. Daija Morton Work Phone: [facility] Work Phone: 11-29-2021 12:48-0400 Body height 172.[address] Daija Morton Work Phone: [facility] Work Phone: 11-29-2021 12:48-0400 Body weight 71.[address] Daija Morton Work Phone: [facility] Work Phone: 11-27-2021 05:25-0400 Body mass index (BMI) [Ratio] 24 kg/m2 Dr. Daija Morton Work Phone: [facility] Work Phone: 11-25-2021 21:36-0400 Body temperature 97.8 [degF] Dr. Daija Morton Work Phone: [facility] Work Phone: 11-25-2021 21:36-0400 Diastolic blood pressure 40 mm[Hg] Dr. Daija Morton Work Phone: [facility] Work Phone: 11-25-2021 21:36-0400 Heart rate 66 /min Dr. Daija Morton Work Phone: [facility] Work Phone: 11-25-2021 21:36-0400 Respiratory rate 16 /min Dr. Daija Morton Work Phone: [facility] Work Phone: 11-25-2021 21:36-0400 SaO2% (BldA) [Mass fraction] 96 % Dr. Daija Morton Work Phone: [facility] Work Phone: 11-25-2021 21:36-0400 Systolic blood pressure 133 mm[Hg] Dr. Daija Morton Work Phone: [facility] Work Phone: 11-25-2021 17:29-0400 Body height 172.[address] Daija Morton Work Phone: [facility] Work Phone: 11-25-2021 17:29-0400 Body mass index (BMI) [Ratio] 24.7 kg/m2 Dr. Daija Morton Work Phone: [facility] Work Phone: 11-25-2021 17:29-0400 Body weight 73.[address] Daija Morton Work Phone: [facility] Work Phone: 11-16-2021 14:37-0400 Body height 172.7 cm Estephania Pierre APRN.PATIENT SERVICES MANAGER Work Phone: [facility] 11-16-2021 14:37-0400 Body weight 71.67 kg Estephania Pierre APRN.PATIENT SERVICES MANAGER Work Phone: [facility] 11-16-2021 14:37-0400 Diastolic blood pressure 68 mm[Hg] Estephania Pierre APRN.PATIENT SERVICES MANAGER Work Phone: [facility] 11-16-2021 14:37-0400 Heart rate 64 /min Estephania Pierre POULTRY PACKER.PATIENT SERVICES MANAGER Work Phone: [facility] 11-16-2021 14:37-0400 SaO2% (BldA) [Mass fraction] 100 % Estephania Pierre POULTRY PACKER.PATIENT SERVICES MANAGER Work Phone: [facility] 11-16-2021 14:37-0400 Systolic blood pressure 162 mm[Hg] Estephania Pierre POULTRY PACKER.PATIENT SERVICES MANAGER Work Phone: [facility] 11-08-2021 12:50-0400 Heart rate 73 /min Respiratory Wstr Work Phone: [facility] 11-08-2021 12:50-0400 Respiratory rate 14 /min Respiratory Wstr Work Phone: [facility] 11-08-2021 12:50-0400 SaO2% (BldA) [Mass fraction] 97 % Respiratory Wstr Work Phone: [facility] 11-05-2021 11:22-0400 Body weight 70.31 kg Emilie Shania PA-C Work Phone: [facility] 11-05-2021 11:22-0400 Diastolic blood pressure 68 mm[Hg] Emilie Shania PA-C Work Phone: [facility] 11-05-2021 11:22-0400 Heart rate 71 /min Emilie Shania PA-C Work Phone: [facility] 11-05-2021 11:22-0400 Respiratory rate 20 /min Emilie Shania PA-C Work Phone: [facility] 11-05-2021 11:22-0400 SaO2% (BldA) [Mass fraction] 99 % Emilie Shania PA-C Work Phone: [facility] 11-05-2021 11:22-0400 Systolic blood pressure 140 mm[Hg] Emilie Shania PA-C Work Phone: [facility] 10-21-2021 11:30-0400 Diastolic blood pressure 65 mm[Hg] Mi Nurse Work Phone: [facility] 10-21-2021 11:30-0400 Heart rate 81 /min Mi Nurse Work Phone: [facility] 10-21-2021 11:30-0400 Systolic blood pressure 155 mm[Hg] Mi Nurse Work Phone: [facility] 10-13-2021 13:00-0400 Body height 172.7 cm Ye Coello MD Work Phone: [facility] 10-13-2021 13:00-0400 Body weight 71.67 kg Ye Coello MD Work Phone: [facility] 10-13-2021 13:00-0400 Diastolic blood pressure 93 mm[Hg] Ye Coello MD Work Phone: [facility] 10-13-2021 13:00-0400 Heart rate 66 /min Ye Coello MD Work Phone: [facility] 10-13-2021 13:00-0400 Systolic blood pressure 217 mm[Hg] Ye Coello MD Work Phone: [facility] 10-08-2021 17:14-0400 Diastolic blood pressure 62 mm[Hg] Dr. Daija Morton Work Phone: [facility] Work Phone: 10-08-2021 17:14-0400 Heart rate 58 /min Dr. Daija Morton Work Phone: [facility] Work Phone: 10-08-2021 17:14-0400 Respiratory rate 18 /min Dr. Daija Morton Work Phone: [facility] Work Phone: 10-08-2021 17:14-0400 SaO2% (BldA) [Mass fraction] 98 % Dr. Daija Morton Work Phone: [facility] Work Phone: 10-08-2021 17:14-0400 Systolic blood pressure 149 mm[Hg] Dr. Daija Morton Work Phone: [facility] Work Phone: 10-08-2021 14:12-0400 Body height 172.[address] Daija Morton Work Phone: [facility] Work Phone: 10-08-2021 14:12-0400 Body mass index (BMI) [Ratio] 24.7 kg/m2 Dr. Daija Morton Work Phone: [facility] Work Phone: 10-08-2021 14:12-0400 Body temperature 98.1 [degF] Dr. Daija Morton Work Phone: [facility] Work Phone: 10-08-2021 14:12-0400 Body weight 73.[address] Daija Morton Work Phone: [facility] Work Phone: 10-07-2021 11:17-0400 Body temperature 97.59 [degF] Anjel Older POULTRY PACKER.PATIENT SERVICES MANAGER Work Phone: [facility] 10-07-2021 11:17-0400 Body weight 70.31 kg Anjel Older POULTRY PACKER.PATIENT SERVICES MANAGER Work Phone: [facility] 10-07-2021 11:17-0400 Diastolic blood pressure 90 mm[Hg] Anjel Older POULTRY PACKER.PATIENT SERVICES MANAGER Work Phone: [facility] 10-07-2021 11:17-0400 Heart rate 67 /min Anjel Older POULTRY PACKER.PATIENT SERVICES MANAGER Work Phone: [facility] 10-07-2021 11:17-0400 Respiratory rate 12 /min Anjel Older POULTRY PACKER.PATIENT SERVICES MANAGER Work Phone: [facility] 10-07-2021 11:17-0400 SaO2% (BldA) [Mass fraction] 96 % Anjel Older POULTRY PACKER.PATIENT SERVICES MANAGER Work Phone: [facility] 10-07-2021 11:17-0400 Systolic blood pressure 178 mm[Hg] Anjel Braga APRN.CNP Work Phone: [facility] 09-29-2021 16:20-0400 Body temperature 98.24 [degF] DR PRIYANKA FRANCO MD [facility] 09-29-2021 16:20-0400 Diastolic blood pressure 91 mm[Hg] DR PRIYANKA FRANCO MD [facility] 09-29-2021 16:20-0400 Heart rate 80 /min DR PRIYANKA FRANCO MD [facility] 09-29-2021 16:20-0400 Respiratory rate 18 /min DR PRIYANKA FRANCO MD [facility] 09-29-2021 16:20-0400 Systolic blood pressure 189 mm[Hg] DR PRIYANKA FRANCO MD [facility] 09-17-2021 20:16-0400 Body temperature 97.3 [degF] Dr. Daija Morton Work Phone: [facility] Work Phone: 09-17-2021 20:16-0400 Diastolic blood pressure 80 mm[Hg] Dr. Daija Morton Work Phone: [facility] Work Phone: 09-17-2021 20:16-0400 Heart rate 85 /min Dr. Daija Morton Work Phone: [facility] Work Phone: 09-17-2021 20:16-0400 Respiratory rate 17 /min Dr. Daija Morton Work Phone: [facility] Work Phone: 09-17-2021 20:16-0400 SaO2% (BldA) [Mass fraction] 96 % Dr. Daija Morton Work Phone: [facility] Work Phone: 09-17-2021 20:16-0400 Systolic blood pressure 171 mm[Hg] Dr. Daija Morton Work Phone: [facility] Work Phone: 09-17-2021 16:56-0400 Body height 172.[address] Daija Morton Work Phone: [facility] Work Phone: 09-17-2021 16:56-0400 Body mass index (BMI) [Ratio] 23.7 kg/m2 Dr. Daija Morton Work Phone: [facility] Work Phone: 09-17-2021 16:56-0400 Body weight 70.[address] Daija Morton Work Phone: [facility] Work Phone: 09-15-2021 17:40-0400 Diastolic blood pressure 73 mm[Hg] Anjel Older POULTRY PACKER.PATIENT SERVICES MANAGER Work Phone: [facility] 09-15-2021 17:40-0400 Systolic blood pressure 170 mm[Hg] Anjel Older POULTRY PACKER.PATIENT SERVICES MANAGER Work Phone: [facility] 09-15-2021 16:57-0400 Body weight 71.22 kg Anjel Older POULTRY PACKER.PATIENT SERVICES MANAGER Work Phone: [facility] 09-15-2021 16:57-0400 Heart rate 68 /min Anjel Older POULTRY PACKER.PATIENT SERVICES MANAGER Work Phone: [facility] 09-15-2021 16:57-0400 Respiratory rate 16 /min Anjel Older POULTRY PACKER.PATIENT SERVICES MANAGER Work Phone: [facility] 09-15-2021 16:18-0400 Body height 172.7 cm Kaye Ortega MD Work Phone: [facility] 09-15-2021 16:18-0400 Body temperature 97.39 [degF] Kaye Ortega MD Work Phone: [facility] 09-15-2021 16:18-0400 Body weight 71.67 kg Kaye Ortega MD Work Phone: [facility] 09-15-2021 16:18-0400 Diastolic blood pressure 72 mm[Hg] Kaye Ortega MD Work Phone: [facility] 09-15-2021 16:18-0400 Heart rate 78 /min Kaye Ortega MD Work Phone: [facility] 09-15-2021 16:18-0400 SaO2% (BldA) [Mass fraction] 96 % Kaye Ortega MD Work Phone: [facility] 09-15-2021 16:18-0400 Systolic blood pressure 138 mm[Hg] Kaye Ortega MD Work Phone: [facility] 08-21-2021 09:30-0500 Body temperature 97.6 [degF] Dr. Daija Morton Work Phone: [facility] Work Phone: 08-21-2021 09:30-0500 Diastolic blood pressure 69 mm[Hg] Dr. Daija Morton Work Phone: [facility] Work Phone: 08-21-2021 09:30-0500 Heart rate 61 /min Dr. Daija Morton Work Phone: [facility] Work Phone: 08-21-2021 09:30-0500 Inhaled oxygen flow rate 3 L/min Dr. Daija Morton Work Phone: [facility] Work Phone: 08-21-2021 09:30-0500 Respiratory rate 18 /min Dr. Daija Morton Work Phone: [facility] Work Phone: 08-21-2021 09:30-0500 SaO2% (BldA) [Mass fraction] 98 % Dr. Daija Morton Work Phone: [facility] Work Phone: 08-21-2021 09:30-0500 Systolic blood pressure 183 mm[Hg] Dr. Daija Morton Work Phone: [facility] Work Phone: 08-21-2021 08:30-0500 Body temperature 97.6 [degF] Dr. Daija Morton Work Phone: [facility] Work Phone: 08-21-2021 08:30-0500 Diastolic blood pressure 69 mm[Hg] Dr. Daija Morton Work Phone: [facility] Work Phone: 08-21-2021 08:30-0500 Heart rate 61 /min Dr. Daija Morton Work Phone: [facility] Work Phone: 08-21-2021 08:30-0500 Respiratory rate 18 /min Dr. Daija Morton Work Phone: [facility] Work Phone: 08-21-2021 08:30-0500 SaO2% (BldA) [Mass fraction] 98 % Dr. Daija Morton Work Phone: [facility] Work Phone: 08-21-2021 08:30-0500 Systolic blood pressure 183 mm[Hg] Dr. Daija Morton Work Phone: [facility] Work Phone: 08-20-2021 06:18-0500 Body mass index (BMI) [Ratio] 23.7 kg/m2 Dr. Daija Morton Work Phone: [facility] Work Phone: 08-20-2021 06:18-0500 Body weight [address] Daija Morton Work Phone: [facility] Work Phone: 08-20-2021 05:18-0500 Body mass index (BMI) [Ratio] 23.7 kg/m2 Dr. Daija Morton Work Phone: [facility] Work Phone: 08-20-2021 05:18-0500 Body weight [address] Daija Morton Work Phone: [facility] Work Phone: 08-12-2021 03:26-0500 Diastolic blood pressure 89 mm[Hg] Dr. Daija Morton Work Phone: [facility] Work Phone: 08-12-2021 03:26-0500 Heart rate 70 /min Dr. Daija Morton Work Phone: [facility] Work Phone: 08-12-2021 03:26-0500 Respiratory rate 18 /min Dr. Daija Morton Work Phone: [facility] Work Phone: 08-12-2021 03:26-0500 SaO2% (BldA) [Mass fraction] 93 % Dr. Daija Morton Work Phone: [facility] Work Phone: 08-12-2021 03:26-0500 Systolic blood pressure 211 mm[Hg] Dr. Daija Morton Work Phone: [facility] Work Phone: 08-11-2021 23:32-0500 Body mass index (BMI) [Ratio] 24.8 kg/m2 Dr. Daija Morton Work Phone: [facility] Work Phone: 08-11-2021 23:32-0500 Body temperature 97.5 [degF] Dr. Daija Morton Work Phone: [facility] Work Phone: 08-11-2021 23:32-0500 Body weight 74.[address] Daija Morton Work [facility]: [facility] [facility] Work Phone: 06-12-2021 15:55-0500 Diastolic blood pressure 81 mm[Hg] Dr. Daija Morton Work Phone: [facility] Work Phone: 06-12-2021 15:55-0500 Heart rate 61 /min Dr. Daija Morton Work Phone: [facility] Work Phone: 06-12-2021 15:55-0500 Systolic blood pressure 182 mm[Hg] Dr. Daija Morton Work Phone: [facility] Work Phone: 06-12-2021 15:15-0500 Body mass index (BMI) [Ratio] 24.6 kg/m2 Dr. Daija Morton Work Phone: [facility] Work Phone: 06-12-2021 15:15-0500 Body temperature 96.8 [degF] Dr. Daija Morton Work Phone: [facility] Work Phone: 06-12-2021 15:15-0500 Body weight 73.[address] Daija Morton Work Phone: [facility] Work Phone: 06-12-2021 15:15-0500 Respiratory rate 18 /min Dr. Daija Morton Work Phone: [facility] Work Phone: 06-12-2021 15:15-0500 SaO2% (BldA) [Mass fraction] 96 % Dr. Daija Morton Work Phone: [facility] Work Phone: 06-04-2021 23:37-0500 Respiratory rate 18 /min Dr. Daija Morton Work Phone: [facility] Work Phone: 06-04-2021 22:01-0500 Body mass index (BMI) [Ratio] 23.6 kg/m2 Dr. Daija Morton Work Phone: [facility] Work Phone: 06-04-2021 22:01-0500 Body temperature 97.1 [degF] Dr. Daija Morton Work Phone: [facility] Work Phone: 06-04-2021 22:01-0500 Body weight 70.[address] Daija Morton Work Phone: [facility] Work Phone: 06-04-2021 22:01-0500 Diastolic blood pressure 99 mm[Hg] Dr. Daija Morton Work Phone: [facility] Work Phone: 06-04-2021 22:01-0500 Heart rate 87 /min Dr. Daija Morton Work Phone: [facility] Work Phone: 06-04-2021 22:01-0500 SaO2% (BldA) [Mass fraction] 97 % Dr. Daija Morton Work Phone: [facility] Work Phone: 06-04-2021 22:01-0500 Systolic blood pressure 202 mm[Hg] Dr. Daija Morton Work Phone: [facility] Work Phone: Encounters Encounter Date Encounter Type Care Provider Facility Start: 12-17-[address] Germain Morton MD Work Phone: -[facility] Start: 12-17-2024 Dr. Roman Patel DO -[facility] Work Phone: Start: 12-16-2024 End: 12-17-2024 Refill Daija Morton MD Work Phone: [facility] [place] Comment on above: Refill Request SOB (shortness of br eath) (Primary Dx) Start: 12-16-2024 Dr. Lisha Talamantes DO -[facility] Work Phone: Start: 12-15-2024 Dr. Lsiha Talamantes DO -[facility] Work Phone: Start: 12-14-2024 Dr. Lisha Talamantes DO -[facility] Work Phone: Start: 12-13-2024 Non-patient / Non-visit Dr. Kisha Contreras MD -[place] [facility] Work Phone: Start: 12-13-2024 End: 12-16-2024 Evaluation and management of inpatient Dr. Shilpa Contreras MD -[facility] Care Unit Work Phone: Start: 12-13-2024 End: 12-16-2024 Dr. Lisha Talamantes DO -[facility] Work Phone: Start: 12-13-2024 End: 12-13-2024 Refill Daija Morton MD Work Phone: [facility] [place] Comment on above: Refill Request Orders [facility] requesting r ecords Start: 12-12-2024 End: 12-12-2024 Subsequent hospital visit by physician Fernando [facility] [place] Work Phone: Radiology Comment on above: Wheezing [R06.2] Start: 12-12-2024 End: 12-12-2024 ambulatory DAIJA MORTON Facility:[facility] Start: 12-12-2024 End: 12-12-2024 Office outpatient visit 25 minutes Anjel Braga [employer] Work Phone: [facility] [place] Comment on above: Other emphysema (HCC ) (Primary Dx); Smoker; Wheezing; Lower abdominal tenderness; Loose stools; On home oxygen therapy; Primary hypertension; Left leg pain; Falls; Weakness Start: 12-12-2024 End: 12-12-2024 ambulatory ANJEL BRAGA Facility:[facility] Start: 12-09-2024 End: 12-09-2024 Telephone encounter Daija Morton MD Work Phone: [facility] [place] Comment on above: Home Care Management ; Patient Update Start: 12-06-2024 End: 12-06-2024 Telephone encounter Daija Morton MD Work Phone: [facility] [place] Comment on above: [facility] update Start: 12-03-2024 End: 12-04-2024 Telephone encounter Daija Morton MD Work Phone: [facility] [place] Comment on above: Home Health Orders Start: 12-02-2024 ambulatory Carla RAIN Facili ty:[facility] Start: 12-02-[address] Carla Prather MD [facility] Start: 12-02-2024 Dr. Carla Prather MD [facility] Start: 11-05-2024 End: 11-05-[address] Daija Morton MD Work Phone: [facility] Work Phone: Start: 11-05-2024 End: 11-05-[address] Carla Prather MD [facility] Start: 11-05-2024 End: 11-05-2024 Dr. Carla Prather MD [facility] Start: 11-05-2024 End: 11-05-2024 ambulatory Carla RAIN Facility:[facility] Start: 10-16-2024 ambulatory Carla RAIN Facili ty:[facility] Start: 10-16-[address] Carla Prather MD [facility] Start: 10-16-2024 Dr. Carla Prather MD [facility] Start: 09-02-2024 Non-patient / Non-visit Dr. Brody Maynard MD -[facility] Work Phone: Start: 09-02-2024 Dr. Brody Maynard MD [facility] Work Phone: Start: 09-01-2024 Non-patient / Non-[facility] Work [facility] Start: 09-01-2024 Dr. Celia Toribio MD [facility] Work Phone: Start: 08-31-2024 Non-patient / Non-[facility] Work [facility]: Start: 08-31-2024 Dr. Celia Toribio MD [facility] Work Phone: Start: 08-30-2024 Non-patient / Non-[facility] Work [facility]: Start: 08-30-2024 Dr. Celia Toribio MD [facility] Work Phone: Start: 08-29-2024 Non-patient / Non-visit [facility] Work Phone: Start: 08-29-2024 Dr. Celia Toribio MD [facility] Work Phone: Start: 08-28-2024 Non-patient / Non-visit Dr. Celia rapp MD [facility] Work Phone: Start: 08-28-2024 Dr. Celia Toribio MD [facility] Work Phone: Start: 08-27-2024 ambulatory Lisha Lee [facility] Start: 08-27-2024 End: 09-02-2024 Evaluation and management of inpatient Dr. Brody Maynard MD -[facility] 3 Work Phone: Start: 08-27-2024 End: 09-02-2024 Dr. Brody Maynard MD -[facility] Work Phone: Start: 08-27-2024 Non-patient / Non-visit [facility] Work [facility]: Start: 08-27-2024 Dr. Celia Toribio MD [facility] Work Phone: Start: 08-26-2024 Non-patient / Non-visit Dr. Celia rapp MD -[place] [facility] Work Phone: Start: 08-26-2024 Dr. Celia Toribio MD -[facility] Work Phone: Start: 08-25-2024 Non-patient / Non-visit Dr. Lisha Talamantes DO -[place] [facility] Work Phone: Start: 08-25-2024 Dr. Lisha Talamantes DO -[facility] Work Phone: Start: 08-25-2024 ambulatory Lisha Talamantes [facility] Start: 08-25-2024 Evaluation and management of inpatient Dr. Lisha Talamantes DO -[facility] Surgical 3 Work Phone: Start: 08-25-[address] Germain Morton MD Work Phone: [facility] Work Phone: Start: 07-15-2024 ambulatory Carla Ikea OLS Facili ty:[facility] Start: 07-15-[address] Carla Prather MD -[facility] Start: 05-17-2024 End: 05-17-2024 Telephone encounter Daija Morton MD Work Phone: [facility] [place] Comment on above: Patient Update Start: 04-29-2024 End: 05-14-2024 Telephone encounter Daija Morton MD Work Phone: [facility] [place] Comment on above: Patient Update Start: 04-12-2024 ambulatory Carla Gudla OLS Facili ty:[facility] Start: 04-08-2024 ambulatory Maxi Curtis [facility] Start: 04-07-2024 ambulatory Raul Jopperi [facility] Start: 04-07-2024 End: 04-10-2024 Evaluation and management of inpatient Raul Jopperi Facility:[facility] Start: 04-06-2024 ambulatory Kathiluis Rogersam [facility] Start: 04-04-2024 End: 04-24-2024 Telephone encounter Daija Morton MD Work Phone: [facility] [place] Comment on above: Patient Update Start: 03-31-2024 End: 04-04-2024 Telephone encounter Sera SALDIVAR Work Phone: [facility] Comment on above: Results Start: 03-25-2024 End: 03-25-2024 Telephone encounter Sera SALDIVAR Work Phone: [facility] Comment on above: Results Start: 03-23-2024 End: 03-23-2024 ambulatory [facility] Facility:[facility] Start: 03-23-2024 End: 03-23-2024 Patient encounter procedure Pura Carter APRN.CNP Work Phone: [facility] Comment on above: Uncontrolled hyperte nsion (Primary Dx); Dysuria; Urinary tract infection without hematuria, site unspecified Start: 03-12-2024 End: 03-12-2024 Refill Daija Morton MD Work Phone: [facility] [place] Comment on above: Refill Request Start: 02-20-2024 End: 02-20-2024 Emergency department patient visit [facility] Facility:[facility] Start: 01-23-2024 Refill Daija Carson Work Phone: [facility] [place] Comment on above: Refill Request Start: 01-03-2024 End: 01-03-2024 Emergency department patient visit [facility] Facility:[facility] Start: 01-02-2024 Orders Only Ryan May MD Work Phone: Vascular Surgery Comment on above: Peripheral arterial disease (HCC) (Primary Dx) Start: 01-01-2024 Telephone encounter Daija pressley MD Work Phone: [facility] [place] Comment on above: No Show Start: 12-22-2023 Telephone encounter Daija pressley MD Work Phone: [facility] [place] Comment on above: Mental status change Start: 12-08-2023 Telephone encounter Daija pressley MD Work Phone: [facility] [place] Comment on above: Patient Update Start: 11-21-2023 End: 11-21-2023 Office outpatient visit 25 minutes Rebekah Luu PA-C Work Phone: [facility] [place] Comment on above: 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); Other emphysema (HCC); Chronic sore throat; Smoking; Closed nondisplaced fracture of pelvis with routine healing, unspecified part of pelvis, subsequent encounter; Mixed hyperlipidemia; Hypertension, unspecified type Start: 11-20-2023 Telephone encounter Daija pressley MD Work Phone: [facility] [place] Comment on above: Future Appointment Start: 11-17-2023 Telephone encounter Rebekah Luu PA-C Work Phone: [facility] [place] Comment on above: Orders (Follow skill ed nursing orders from [facility]) Start: 11-15-2023 Telephone encounter Rebekah Luu PA-C Work Phone: [facility] [place] Start: 11-09-2023 Telephone encounter Daija pressley MD Work Phone: [facility] [place] Comment on above: Orders Start: 10-19-2023 Telephone encounter Daija pressley MD Work Phone: [facility] [place] Comment on above: FYI-No Action Needed Start: 08-21-2023 ambulatory Lisa Farley [facility] Comment on above: Population Health Na vigation Outreach ([employer] care gaps) Start: 08-04-2023 Refill Daija Carson Work Phone: [facility] [place] Comment on above: Refill Request Start: 08-02-2023 Dr. Daija pressley Work Phone: [facility] Work Phone: Start: 08-01-2023 Dr. Daija pressley Work Phone: [facility] Work Phone: Start: 07-31-2023 Dr. Daija pressley Work Phone: [facility] Work Phone: Start: 07-30-2023 End: 08-02-2023 Evaluation and management of inpatient Dr. Daija Morton Work Phone: [facility] Work Phone: Start: 07-30-2023 End: 08-02-2023 Dr. Daija Morton Work Phone: [facility]-Intensive Care Unit Work Phone: Start: 07-27-2023 Dr. Daija pressley Work Phone: [facility] Start: 07-26-2023 Dr. Daija pressley Work Phone: [facility] Work Phone: Start: 07-25-2023 Dr. Daija pressley Work Phone: [facility] Work Phone: Start: 07-24-2023 Evaluation and management of inpatient Dr. Daija Morton [facility] Work Phone: Start: 07-24-2023 Non-patient / Non-visit Dr. Vernon Morton Work Phone: [facility] Work Phone: Start: 07-24-2023 End: 07-26-2023 Dr. Daija Morton Work Phone: [facility] Surgical 3 Work Phone: Start: 07-19-2023 Telephone encounter Daija pressley MD Work Phone: [facility] [place] Comment on above: Patient Update Start: 07-10-2023 End: 07-15-[address] DAIJA MORTON MD Facility:[facility] Start: 06-14-2023 End: 06-14-[address] Daija Morton Work Phone: [facility] Work Phone: Start: 06-14-2023 End: 06-14-[address] Daija Morton [facility] Work Phone: Start: 06-14-2023 End: 06-14-2023 Dr. Daija Morton [facility] Phone[facility] Work Phone: Start: 05-30-2023 Refill Daija Carson Work Phone: [facility] [place] Comment on above: Refill Request Start: 05-19-2023 Telephone encounter Daija pressley MD Work Phone: [facility] [place] Comment on above: Need verbal for Adva ntage [facility] Start: 05-19-2023 End: 05-19-[address] Daija Morton Work Phone: [facility] Work Phone: Start: 05-19-2023 End: 05-19-[address] Daija Morton Work Phone: [facility] Start: 05-19-2023 End: 05-19-2023 Dr. Daija Morton Work Phone: [facility] Start: 04-19-[address] Daija Morton Work Phone: [facility] Start: 04-19-2023 Dr. Daija pressley Work Phone: [facility] Start: 04-17-[address] Daija Morton Work Phone: [facility] Start: 04-17-2023 Dr. Daija pressley Work Phone: [facility] Start: 04-12-[address] Daija Morton Work Phone: [facility] Start: 04-12-2023 Dr. Daija pressley Work Phone: [facility] Start: 04-05-[address] Daija Morton Work Phone: [facility] Start: 04-05-2023 Dr. Daija pressley Work Phone: [facility] Start: 04-04-2023 Non-patient / Non-visit Dr. Vernon Morton Work Phone: [facility] Work Phone: Start: 04-04-2023 Dr. Daija pressley Work Phone: [facility] Work Phone: Start: 04-03-2023 Non-patient / Non-visit Dr. Vernon Morton Work Phone: [facility] Work Phone: Start: 04-03-2023 Dr. Daija pressley Work Phone: [facility] Work Phone: Start: 04-02-2023 Non-patient / Non-visit Dr. Vernon Morton Work Phone: [facility] Work Phone: Start: 04-02-2023 Dr. Daija pressley Work Phone: [facility] Work Phone: Start: 04-01-2023 Non-patient / Non-visit Dr. Vernon Morton Work Phone: [facility] [facility] Work Phone: Start: 03-31-2023 Telephone encounter Daija pressley MD Work Phone: [address] [place] [address] Comment on above: Erroneous encounter- disregard Start: 03-31-2023 Non-patient / Non-visit Dr. Vernon Morton Work Phone: [facility] Work Phone: Start: 03-30-2023 Non-patient / Non-visit Dr. Vernon Morton Work Phone: [facility] Work Phone: Start: 03-30-2023 End: 04-04-2023 Evaluation and management of inpatient Dr. Daija Morton Work Phone: [facility] 3 Work Phone: Start: 03-30-2023 End: 04-04-2023 Dr. Daija Morton Work Phone: [facility] 3 Work Phone: Start: 03-29-2023 End: 03-29-2023 Emergency department patient visit Dr. Dajia Morton [facility] Work Phone: Start: 02-25-2023 End: 02-25-2023 Emergency department patient visit Dr. Daija Morton [facility] Work Phone: Start: 02-24-2023 Refill Anjel Braga APRN, .CNP Work Phone: Internal [facility] Comment on above: Refill Request Start: 02-17-2023 End: 02-18-2023 [facility] Work [facility]: Start: 01-27-2023 Refill Daija Carson Work Phone: [facility] Comment on above: Refill Request Start: 12-31-2022 End: 12-31-2022 [facility] Work [facility]: Start: 12-26-2022 End: 12-26-2022 Patient encounter procedure Ryan May MD Work Phone: Vascular Surgery Comment on above: Peripheral arterial disease (HCC) (Primary Dx) Peripheral arterial disease (HCC) (Primary Dx); PVD (peripheral vascular disease) (HCC) Start: 10-22-2022 End: 10-23-2022 Emergency department patient visit DR DAIJA MORTON MD Facility:[facility] Start: 10-22-2022 End: 10-22-2022 Emergency department patient visit DR PRIYANKA FRANCO MD [facility] Start: 10-21-2022 End: 10-21-2022 [facility] Start: 09-30-2022 Refill Daija Carson Work Phone: [facility] [place] Comment on above: Refill Request Start: 09-06-2022 Telephone encounter Anjel Braga APRN.CNP Work Phone: [facility] [place] Comment on above: patient problem Start: 09-01-2022 Refill Daija Carson Work Phone: [facility] [place] Comment on above: Refill Request; C Request Start: 08-29-2022 Refill Daija Carson Work Phone: [facility] [place] Comment on above: Refill Request Start: 08-27-2022 End: 08-27-2022 Patient encounter procedure Daija Morton MD Work Phone: [facility] [place] Comment on above: Ambulatory dysfuncti on (Primary Dx); Closed fracture of multiple ribs of left side, sequela; Paroxysmal atrial fibrillation (HCC); Anemia, unspecified type; Essential hypertension; PVD (peripheral vascular disease) (HCC); Anticoagulation goal of INR 2 to 3; Uncontrolled hypertension; Declining mobility Start: 08-25-2022 Telephone encounter Daija pressley MD Work Phone: [facility] [place] Comment on above: Appointment Refill Request; [place] ent Update Start: 08-11-2022 End: 08-11-2022 Departed Referred [facility] Start: 08-02-2022 Telephone encounter Ryan May MD Work Phone: Vascular Surgery Comment on above: Appointment Start: 07-12-2022 End: 07-12-2022 ambulatory [facility] Work Phone: Start: 07-12-2022 End: 07-12-2022 Departed Referred [facility] Start: 06-14-2022 End: 06-14-2022 Departed Referred [facility] Start: 06-14-2022 Registered Referred [facility] Start: 05-13-2022 End: 05-13-2022 ambulatory [facility] Work Phone: Start: 05-13-2022 End: 05-13-2022 Departed Referred [facility] Start: 03-29-2022 ambulatory Daija Carson Work Phone: [facility] [place] Start: 03-15-2022 Registered Referred [facility] 100/200 Start: 03-14-2022 Telephone encounter Daija pressley MD Work Phone: [facility] [place] Comment on above: Medication Question Start: 03-11-2022 Telephone encounter Anjel Braga APRN.PATIENT SERVICES MANAGER Work Phone: [facility] [place] Comment on above: admit to [facility] Start: 03-10-2022 Telephone encounter Daija pressley MD Work Phone: [facility] [place] Comment on above: Appointment Start: 03-10-2022 End: 03-10-2022 Patient encounter procedure Anjel Braga APRN.PATIENT SERVICES MANAGER Work Phone: [facility] [place] Comment on above: Fall, sequela (Prima ry Dx); Closed fracture of multiple ribs of left side, sequela; Pain Start: 03-09-2022 Telephone encounter Daija pressley MD Work Phone: [facility] [place] Comment on above: [facility] orders needed t [facility] Start: 03-08-2022 End: 03-08-2022 Emergency department patient visit Dr. Daija Morton [facility] Start: 03-07-2022 End: 03-07-2022 Emergency department patient visit Dr. Daija Morton [facility] Start: 03-02-2022 End: 03-02-2022 Emergency department patient visit Dr. Daija Morton [facility] Start: 03-02-2022 ambulatory Daija Carson Work Phone: [facility] [place] Comment on above: Syncope Start: 03-02-2022 Telephone encounter Daija pressley MD Work Phone: [facility] [place] Comment on above: Erroneous encounter- disregard Start: 02-23-2022 Telephone encounter Daija pressley MD Work Phone: [facility] [place] Comment on above: Orders Start: 02-22-2022 Refill Daija Carson Work Phone: [facility] [place] Comment on above: Refill Request Start: 02-01-2022 Telephone encounter Daija pressley MD Work Phone: [facility] [place] Comment on above: Patient Question Start: 01-31-2022 End: 01-31-2022 Patient encounter procedure Ryan May MD Work Phone: Vascular Surgery Comment on above: s/p left femoral end arterectomy/aortoiliac stenting 10/08/2019 (Primary Dx); PVD (peripheral vascular disease) (HCC); Smoker PVD (peripheral vasc ular disease) (HCC) (Primary Dx) Start: 01-28-2022 End: 01-28-2022 Emergency department patient visit Dr. Daija Morton [facility] Start: 01-28-2022 End: 01-28-2022 Patient encounter procedure Anjel Braga APRN.CNP Work Phone: [facility] [place] Comment on above: Essential hypertensi on (Primary Dx); Chest pain, unspecified type; Acute nonintractable headache, unspecified headache type; GI bleeding; Anticoagulation goal of INR 2 to 3 Start: 01-20-2022 End: 01-20-2022 Patient encounter procedure Ye Coello MD Work Phone: [facility] Comment on above: Tobacco abuse (Prima ry Dx); Acute cholecystitis with chronic cholecystitis; Gallbladder perforation; RUQ abdominal pain; Abnormal ultrasound of gallbladder Start: 01-14-2022 Telephone encounter Harriett armendariz POULTRY PACKER.REVIEW COORDINATOR Work Phone: [facility] [place] Comment on above: Results, Lab Start: 01-14-2022 End: 01-14-2022 Patient encounter procedure Harriett Albert APRN.REVIEW COORDINATOR Work Phone: [facility] [place] Comment on above: Acute blood loss ane won (Primary Dx); Angiodysplasia of colon with hemorrhage; COPD with chronic bronchitis (HCC) Start: 01-11-2022 Telephone encounter Harriett armendariz POULTRY PACKER.REVIEW COORDINATOR Work Phone: [facility] [place] Comment on above: Appointment (01/14 ED F/U-need ED location to retrieve records) Start: 12-30-2021 End: 12-30-[address] Daija Morton Work Phone: [place] [id number] Start: 12-30-[address] Daija Morton Work Phone: [place] [phone] Start: 12-29-2021 End: 12-29-[address] Daija Morton Work Phone: [place] [phone] Start: 12-29-2021 Registered Referred Dr. Daija Morton Work Phone: [place] [phone] Start: 12-23-2021 End: 12-23-[address] Daija Morton Work Phone: [place] [phone] Start: 12-17-2021 End: 12-17-[address] Daija Morton Work Phone: [place] [phone] Start: 12-17-[address] Daija Morton Work Phone: [place] [phone] Start: 12-10-2021 End: 12-10-[address] Daija Morton Work Phone: [place] [phone] Start: 12-10-[address] Daija Morton Work Phone: [place] [phone] Start: 12-08-2021 End: 12-08-[address] Daija Morton Work Phone: [place] [phone] Start: 12-08-[address] Daija Morton Work Phone: [place] [phone] Start: 12-06-2021 End: 12-06-[address] Daija Morton Work Phone: [place] [phone] Start: 12-06-[address] Daija Morton Work Phone: [place] [phone] Start: 12-04-2021 End: 12-04-[address] Daija Morton Work Phone: [place] [phone] Start: 12-04-[address] Daija Morton Work Phone: [place] [phone] Start: 12-02-2021 Telephone encounter Daija pressley MD Work Phone: [facility] [place] Comment on above: Patient Update; Medi cation Request Start: 12-01-2021 End: 12-01-[address] Daija Morton Work Phone: [place] [phone] Start: 11-30-2021 Telephone encounter Daija pressley MD Work Phone: [facility] [place] Comment on above: Clinical Update Start: 11-30-2021 Non-patient / Non-visit Dr. Vernon Morton Work Phone: [facility] Start: 11-29-2021 Non-patient / Non-visit Dr. Vernon Morton Work Phone: [facility] Start: 11-28-2021 Non-patient / Non-visit Dr. Vernon Morton Work Phone: [facility] Start: 11-27-2021 Non-patient / Non-visit Dr. Vernon Morton Work Phone: [facility] Start: 11-27-2021 Non-patient / Non-visit Dr. Vernon Morton Work Phone: [facility] Start: 11-26-2021 Telephone encounter Kaylen Danielle [facility] Ambulatory Telemanagement Comment on above: Anticoagulation Tele phone Fu Start: 11-26-2021 Non-patient / Non-visit Dr. Vernon Morton Work Phone: [facility] Start: 11-26-2021 Non-patient / Non-visit Dr. Vernon Morton Work Phone: [facility] Start: 11-25-2021 Non-patient / Non-visit Dr. Vernon Morton Work Phone: [facility] Start: 11-25-2021 End: 11-30-2021 Evaluation and management of inpatient Dr. Daija Morton Work Phone: [facility] Start: 11-19-2021 Refill Daija Carson Work Phone: [facility] [place] Comment on above: Refill Request Medication Request Start: 11-18-2021 Refill Anjel Braga APRN, .CNP Work Phone: [facility] [place] Comment on above: Refill Request Anticoagulation Tele phone Fu Start: 11-17-2021 End: 11-17-2021 Telemedicine consultation with patient Anjel Braga APRN.ACE Work Phone: [facility] Start: 11-17-2021 End: 11-17-2021 ambulatory Tila Guerrero RN [facility] Comment on above: Urinary tract infect ion without hematuria, site unspecified (Primary Dx) Start: 11-17-2021 Patient encounter procedure Tila Guerrero RN [employer]URSE [employer] WORKER Comment on above: Appointment Start: 11-16-2021 End: 11-16-2021 Patient encounter procedure Estephania Pierre APRN.PATIENT SERVICES MANAGER Work Phone: Cardiology Comment on above: Preoperative cardiov ascular examination (Primary Dx); Paroxysmal atrial fibrillation (HCC); Coronary artery disease involving [place] coronary artery of [place] heart without angina pectoris; Primary hypertension; Mixed hyperlipidemia; PVD (peripheral vascular disease) (HCC); Smoker Start: 11-16-2021 End: 11-16-2021 Patient encounter status Estephania Pierre APRN.PATIENT SERVICES MANAGER Work Phone: Cardiology Start: 11-12-2021 Telephone encounter Anjel Braga APRN.CNP Work Phone: [facility] [place] Comment on above: Results Start: 11-11-2021 Telephone encounter Daija pressley MD Work Phone: [facility] [place] Comment on above: Anticoagulation Start: 11-11-2021 End: 11-11-[address] Daija Morton Work Phone: [facility]-Laboratory, Specimen Start: 11-08-2021 End: 11-08-2021 ambulatory Respiratory Therapist [facility] Work Phone: Pulmonary Medicine Comment on above: Spirometry Start: 11-08-2021 End: 11-08-2021 Patient encounter procedure Respiratory Therapist [facility] Work Phone: [facility] Start: 11-05-2021 End: 11-05-2021 Patient encounter procedure Emilie Smart Shanai SALDIVAR-C Work Phone: Pulmonary Medicine Comment on above: 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); Tobacco use disorder; Pre-operative respiratory examination Start: 11-05-2021 End: 11-05-2021 Repair venous blockage Emilie Smart Shania SALDIVAR-C Work Phone: Pulmonary Medicine Start: 10-22-2021 Telephone encounter Daija pressley MD Work Phone: [facility] [place] Comment on above: Patient Update Refill Request Start: 10-21-2021 Telephone encounter Daija pressley MD Work Phone: [facility] [place] Comment on above: Blood Pressure Check Start: 10-21-2021 End: 10-21-2021 Nursing evaluation of patient and report Mi Nurse Work Phone: [facility] [place] Comment on above: Hypertension, unspec ified type (Primary Dx) Start: 10-20-2021 Refill Daija Carson Work Phone: [facility] [place] Comment on above: Refill Request Start: 10-19-2021 ambulatory Daija Carson Work Phone: Internal Medicine [facility] Start: 10-14-2021 Telephone encounter Geronimo Medina DO Work Phone: Cardiology Comment on above: Cardiac Clearance Start: 10-13-2021 End: 10-13-2021 Patient encounter procedure Ye Coello MD Work Phone: [facility] Comment on above: Acute cholecystitis with chronic cholecystitis (Primary Dx); Gallbladder perforation Start: 10-12-2021 Telephone encounter Rosaura light Ambulatory Telemanagement Comment on above: Anticoagulation Tele phone Fu Elevated BP Start: 10-08-2021 End: 10-08-2021 Emergency department patient visit Dr. Daija Morton Work Phone: [facility]Emergency Department Start: 10-08-2021 Telephone encounter Daija pressley MD Work Phone: [facility] [place] Comment on above: Patient Update; Shalom rs Start: 10-07-2021 End: 10-07-2021 Patient encounter procedure Anjel Omi HUFFPATIENT SERVICES MANAGER Work Phone: [facility] [place]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 Notification of physician [facility] Work Phone: Start: 11-26-2021 Referral to occupati onal therapist [facility] Work Phone: Start: 11-26-2021 End: 11-26-2021 Referral to service [facility] Work Phone: Start: 11-26-2021 Catheterization of vein [facility] Work Phone: Start: 11-26-2021 Following clinical pathway protocol [facility] Work Phone: Start: 11-26-2021 Inhalation therapy procedure [facility] Work Phone: Start: 11-25-2021 Assessment of risk o f venous thromboembolism [facility] Work Phone: Start: 11-25-2021 Insertion of cathete r into peripheral vein [facility] Work Phone: Start: 11-25-2021 Measuring intake and output [facility] Work Phone: Start: 11-25-2021 Oxygen therapy [facility] Work Phone: Start: 11-25-2021 Providing care accor ding to standard [facility] Work Phone: Start: 11-25-2021 Provision of activit y privileges [facility] Work Phone: Start: 11-25-2021 Referral to gastroenterology service [facility] Work Phone: Start: 11-25-2021 [facility] Work Phone: Start: 11-25-2021 Admission procedure [facility] Work Phone: Start: 11-25-2021 End: 11-25-2021 Administration of blood product [facility] Work Phone: Start: 11-25-2021 Patient referral to dietitian [facility] Work Phone: Start: 10-23-2021 End: 12-23-2021 PT panel - Platelet poor plasma by Coagulation assay PROTHROMBIN TIME/PT Lab Routine Anticoagulation goal of INR 2 to 3 Expected: 10/23/2021, Expires: 12/23/2021 [facility] Work Phone: Comment on above: Expected: 10/23/2021 , Expires: 12/23/2021 Start: 10-19-2021 End: 12-19-2021 Hemoglobin A1c/Hemoglobin.total in Blood HGB A1C Lab Routine Medication management Expected: 10/19/2021, Expires: 12/19/2021 [facility] Work Phone: Comment on above: Expected: 10/19/2021 , Expires: 12/19/2021 Start: 10-19-2021 End: 12-19-2021 LIPID PANEL BASIC LIPID PANEL BASIC Lab Routine Hyperlipidemia Expected: 10/19/2021, Expires: 12/19/2021 [facility] Work Phone: Comment on above: Expected: 10/19/2021 , Expires: 12/19/2021 Start: 10-19-2021 End: 12-19-2021 SCHEDULE LAB TESTING SCHEDULE LAB TESTING Lab Routine Expected: 10/19/2021, Expires: 12/19/2021 [facility] Work Phone: Comment on above: Expected: 10/19/2021 , Expires: 12/19/2021 Start: 10-17-2021 Colonoscopy COLONOSCOPY [facility] Start: 10-17-2021 COLORECTAL CANCER SCREENING COLORECTAL CANCER SCREENING [facility] Start: 09-22-2021 End: 11-22-2021 CBC W Auto Differential panel - Blood CBC + DIFF Lab Routine Anemia, unspecified type Expected: 09/22/2021, Expires: 11/22/2021 [facility] Work Phone: Comment on above: Expected: 09/22/2021 , Expires: 11/22/2021 Start: 09-22-2021 End: 11-22-2021 PT panel - Platelet poor plasma by Coagulation assay PROTHROMBIN TIME/PT Lab Routine Encounter for monitoring Coumadin therapy Expected: 09/22/2021, Expires: 11/22/2021 [facility] Work Phone: Comment on above: Expected: 09/22/2021 , Expires: 11/22/2021 Start: 08-21-2021 Patient discharge [facility] Work Phone: Start: 08-19-2021 Application of intermittent pneumatic compression device [facility] Work Phone: Start: 08-19-2021 Oxygen therapy [facility] Work Phone: Start: 08-19-2021 Tobacco use cessatio n education [facility] Work Phone: Start: 08-19-2021 [facility] Work Phone: Start: 08-19-2021 Care planning and pr oblem solving actions [facility] Work Phone: Start: 08-19-2021 Administration of bl ood product [facility] Work Phone: Start: 08-19-2021 Referral to smoke jumper supervisor [facility] Work Phone: Start: 08-19-2021 [facility] Work Phone: Start: 08-19-2021 Referral to occupati onal therapist [facility] Work Phone: Start: 08-19-2021 Referral to service [facility] Work Phone: Start: 08-19-2021 Application of intermittent pneumatic compression device [facility] Work Phone: Start: 08-19-2021 Administration of bl ood product [facility] Work Phone: Start: 08-19-2021 Administration of bl ood product [facility] Work Phone: Start: 08-19-2021 Inhalation therapy procedure [facility] Work Phone: Start: 08-18-2021 Following clinical pathway protocol [facility] Work Phone: Start: 08-18-2021 Ambulation without limitation [facility] Work Phone: Start: 08-18-2021 Assessment of risk o f venous thromboembolism [facility] Work Phone: Start: 08-18-2021 Insertion of cathete r into peripheral vein [facility] Work Phone: Start: 08-18-2021 Providing care accor ding to standard [facility] Work Phone: Start: 08-18-2021 [facility] Work Phone: Start: 08-18-2021 Admission procedure [facility] Work Phone: Start: 06-19-2021 ADVANCE DIRECTIVE DISCUSSION ADVANCE DIRECTIVE DISCUSSION [facility] Start: 06-04-2021 Smpl repair scalp/neck/ax/genit/trunk 2.6-7.5cm RPR S/N/AX/GEN/TRNK2.6-7.5CM [facility] Work Phone: Start: 11-19-2020 SHINGRIX VACCINE (2 of 3) MCNALLY GRIX VACCINE (2 of 3) [facility] Start: 11-05-2020 COVID-19 VACCINE (2 - Moderna 3-dose series) COVID-19 VACCINE (2 - Moderna 3-dose series) [facility] Start: 11-05-2020 COVID-19 VACCINE (2 - Moderna series) COVID-19 VACCINE (2 - Moderna series) [facility] Start: 03-19-2020 Hepatitis B surface antibody level LDL CHOLESTEROL [facility] Start: 11-15-2015 FECAL OCCULT BLOOD FECAL OCCULT BLOO D [facility] Start: 11-15-2015 Screening for malign ant neoplasm of colon Fecal Occult Blood [facility] Start: 01-17-2014 Medicare Annual Well ness Visit Medicare Annual Wellness Visit [facility] Start: 2009 RSV Vaccine (1 - 1-d ose 60+ series) RSV Vaccine (1 - 1-dose 60+ series) [facility] Start: 2009 RSV Vaccine (1 - Ris k 60-74 years 1-dose series) RSV Vaccine (1 - Risk 60-74 years 1-dose series) [facility] Start: 1999 Influenza vaccination LUNG CANCER SC REENING [facility] Start: 1999 Screening for malign ant neoplasm of lung Lung Cancer Screening [facility] Start: 1999 SHINGRIX VACCINE (1 of 2) MCNALLY GRIX VACCINE (1 of 2) [facility] Start: 1994 COLOGUARD (FIT-DNA) COLOGUARD (FIT-D NA) [facility] Start: [address] COLONOGRAPHY [facility] Start: 1994 Screening for malign ant neoplasm of colon [facility] Start: 1994 SIGMOIDOSCOPY SIGMOIDOSCOPY [facility] Start: 1979 Zoledronic acid therapy ALPHA- 1 ANTITRYPSIN DEFICIENCY SCREENING [facility] Start: 1967 BP CONTROLLED (<130/80) BP CONTROLLE D (<130/80) [facility] Bacteria identified in Urine by Culture URINE CULTURE Microbiology Routine Dysuria Ordered: 09/15/2021 [facility] Work Phone: Comment on above: Ordered: 09/15/2021 Bacteria identified in Urine by Culture Urine Culture [facility] Bacteria identified in Urine by Culture URINE CULTURE Microbiology Routine Dysuria 03/23/2024 2:06 PM EDT [facility] Work Phone: Clostridioides diffi cile DNA [Presence] in Unspecified specimen by ALEENA with probe detection [facility] End: 01-28-2023 ECG COMPLETE ECG COMPLETE ECG Routine Essential hypertension Chest pain, unspecified type 1 Occurrences starting 01/28/2022 until 01/28/2023 [facility] Work Phone: Comment on above: 1 Occurrences starti ng 01/28/2022 until 01/28/2023 Hemoglobin A1c/Hemoglobin.total in Blood [facility] Hemoglobin.gastroint estin al.lower [Presence] in Stool by Immunoassay FECAL OCCULT BLOOD TEST Lab Routine Acute blood loss anemia Angiodysplasia of colon with hemorrhage Ordered: 01/14/2022 [facility] Work Phone: Comment on above: Ordered: 01/14/2022 INR in Blood by Coagulation assay [facility] Lactic acid measurement [facility] End: 12-05-2022 LUNG DIFFUSION CAPACITY (DLCO) LUNG DIFFUSION CAPACITY (DLCO) PFT Routine COPD with chronic bronchitis (HCC) 1 Occurrences starting 11/05/2021 until 12/05/2022 [facility] Work Phone: Comment on above: 1 Occurrences starti ng 11/05/2021 until 12/05/2022 End: 01-15-2026 LUNG DIFFUSION CAPACITY (DLCO) LUNG DIFFUSION CAPACITY (DLCO) PFT Routine SOB (shortness of breath) 1 Occurrences starting 12/17/2024 until 01/15/2026 [facility] Comment on above: 1 Occurrences starti ng 12/17/2024 until 01/15/2026 Nucleic acid assay [facility] Patient Education [facility] Work Phone: Patient referral [facility] Work Phone: End: 06-18-2023 PVR LEG COREY VAS LAB PVR LEG COREY VAS LAB Vascular Lab Routine PVD (peripheral vascular disease) (HCC) 1 Occurrences starting 01/31/2022 until 06/18/2023 [facility] Work Phone: Comment on above: 1 Occurrences starti ng 01/31/2022 until 06/18/2023 PVR LEG COREY VAS LAB PVR LEG COREY VAS LAB Vascular Lab Routine Peripheral arterial disease (HCC) PVD (peripheral vascular disease) (HCC) 1 Occurrences starting 12/26/2022 [facility] Work Phone: Comment on above: 1 Occurrences starti ng 12/26/2022 End: 12-05-2022 Radiologic exam chest 2 views XR CHEST 2V FRONTAL/LAT Radiology Routine COPD with chronic bronchitis (HCC) 1 Occurrences starting 11/05/2021 until 12/05/2022 [facility] Work Phone: Comment on above: 1 Occurrences starti ng 11/05/2021 until 12/05/2022 Respiratory pathogen s DNA and RNA panel - Respiratory specimen by ALEENA with probe detection [facility] End: 01-15-2026 SPIROMETRY WITH DILATOR IF OBSTRUCTED SPIROMETRY WITH DILATOR IF OBSTRUCTED PFT Routine SOB (shortness of breath) 1 Occurrences starting 12/17/2024 until 01/15/2026 [facility] Work Phone: Comment on above: 1 Occurrences starti ng 12/17/2024 until 01/15/2026 Troponin T.cardiac [Mass/volume] in Serum or Plasma by High sensitivity method [facility] Troponin T.cardiac [Mass/volume] in Serum or Plasma by High sensitivity method [facility] Urinalysis complete panel - Urine URINALYSIS, WITH MICROSCOPIC Lab Routine Dysuria Hematuria, unspecified type Ordered: 09/15/2021 [facility] Work Phone: Comment on above: Ordered: 09/15/2021 Urinalysis complete panel - Urine UA WITH CULTURE IF INDICATED Lab Routine Dysuria Ordered: 09/15/2021 [facility] Work Phone: Comment on above: Ordered: 09/15/2021 End: 01-01-2025 US Lower extremity artery - bilateral PVR LEG COREY VAS LAB Vascular Lab Routine Peripheral arterial disease (HCC) 1 Occurrences starting 01/02/2024 until 01/01/2025 [facility] Work Phone: Comment on above: 1 Occurrences starti ng 01/02/2024 until 01/01/2025 End: 01-11-2026 XR Chest PA and Lateral XR CHEST 2V FRONTAL/LAT Radiology Routine Wheezing 1 Occurrences starting 12/12/2024 until 01/11/2026 [facility] Comment on above: 1 Occurrences starti ng 12/12/2024 until 01/11/2026 XR Chest PA and Lateral XR CHEST 2V FRONTAL/LAT Radiology Routine Wheezing 12/12/2024 3:36 PM EDT [facility] Immunizations Immunization Date Immunization Notes Care Provider [facility] 03-31-2023 Influenza High-Dose Quadrivalent Dr. Daija Morton Work Phone: [facility] 03-31-2023 influenza virus vaccine, unspecified formulation Daija Morton MD Work Phone: [facility] 06-04-2021 tetanus toxoid, redu marianna diphtheria toxoid, and acellular pertussis vaccine, adsorbed Dr. Daija Morton Work Phone: [facility] 04-05-2021 influenza, high-dose , quadrivalent vaccine (FLUZONE HIGH DOSE QUADRIVALENT) Lizette lUloa RN Work Phone: [facility] 04-05-2021 influenza virus vaccine, unspecified formulation Anjel Braga POULTRY PACKER.PATIENT SERVICES MANAGER Work Phone: [facility] 10-08-2020 COVID-19 vaccine, fu ll dose (MODERNA) Lizette Ulloa RN Work Phone: [facility] 09-24-2020 zoster vaccine, live Harriett B monie POULTRY PACKER.REVIEW COORDINATOR Work Phone: [facility] 09-16-2020 influenza, high-dose , quadrivalent vaccine (FLUZONE HIGH DOSE QUADRIVALENT) Respiratory Wstr Work Phone: [facility] Work Phone: 08-09-2020 influenza, injectabl e, quadrivalent, contains preservative Harriett Albert POULTRY PACKER.REVIEW COORDINATOR Work Phone: [facility] 08-09-2020 influenza, injectabl e, quadrivalent, preservative free Dr. Daija Morton Work Phone: [facility] 08-09-2020 influenza, seasonal, injectable Dr. Daija Morton Work Phone: [facility] 08-09-2020 influenza, seasonal, injectable, preservative free Harriett Albert POULTRY PACKER.REVIEW COORDINATOR Work Phone: [facility] 05-21-2020 influenza, high-dose , quadrivalent vaccine (FLUZONE HIGH DOSE QUADRIVALENT) Lizette Ulloa RN Work Phone: [facility] Work Phone: 07-11-2019 influenza, high dose seasonal, preservative-free Lizette Ulloa RN Work Phone: [facility] Work Phone: 05-18-2018 pneumococcal polysaccharide vaccine, 23 valent Lizette Ulloa RN Work Phone: [facility] 03-14-2018 influenza, high dose seasonal, preservative-free Lizette Ulloa RN Work Phone: [facility] 05-31-2017 influenza, high dose seasonal, preservative-free Lizette Ulloa RN Work Phone: [facility] 06-01-2016 influenza, high dose seasonal, preservative-free Lizette Ulloa RN Work Phone: [facility] Work Phone: 03-23-2016 influenza, injectabl e, quadrivalent, contains preservative Harriett Albert POULTRY PACKER.REVIEW COORDINATOR Work Phone: [facility] 03-23-2016 influenza, injectabl e, quadrivalent, preservative free Dr. Daija Morton Work Phone: [facility] 03-23-2016 influenza, seasonal, injectable Dr. Daija Morton Work Phone: [facility] 03-23-2016 influenza, seasonal, injectable, preservative free Lizette Ulloa RN Work Phone: [facility] Work Phone: 07-14-2015 pneumococcal conjuga te vaccine, 13 valent Lizette Ulloa RN Work Phone: [facility] Work Phone: 09-09-2014 influenza, injectabl e, quadrivalent, contains preservative Harriett Albert POULTRY PACKER.REVIEW COORDINATOR Work Phone: [facility] 09-09-2014 influenza, injectabl e, quadrivalent, preservative free Dr. Daija Morton Work Phone: [facility] 09-09-2014 influenza, seasonal, injectable Dr. Daija Morton Work Phone: [facility] 09-09-2014 influenza, seasonal, injectable, preservative free Lizette Ulloa RN Work Phone: [facility] Work Phone: 03-25-2013 pneumococcal polysaccharide vaccine, 23 valent Lizette Ulloa RN Work Phone: [facility] Work Phone: 03-25-[address] Nemesio Morton Work Phone: [facility] Work Phone: 03-25-2013 pneumococcal vaccine , unspecified formulation Respiratory Wstr Work Phone: [facility] Work Phone: 03-24-[address] Daija Morton Work Phone: [facility] 03-24-2013 influenza virus vaccine, unspecified formulation Lizette Ulloa RN Work Phone: [facility] Work Phone: 03-24-2013 influenza, seasonal, injectable Harriett Albert POULTRY PACKER.REVIEW COORDINATOR Work Phone: [facility] 03-24-2013 influenza, seasonal, injectable, preservative free Lizette Ulloa RN Work Phone: [facility] Work Phone: 01-03-2013 tetanus toxoid, redu marianna diphtheria toxoid, and acellular pertussis vaccine, adsorbed Lizette Ulloa RN Work Phone: [facility] Payers Date Payer Category Payer Medicare (Managed Care) [facility] MEDICARE [id number] 2024 Medicaid [id number] 2024 Medicare [id number] 2024 Self-pay [id number] 2023 Private Health Insurance [id number] 2022 [facility] [id number] 2021 Medicare [facility] A[facility] MEDICAR E [facility] MEDICARE O [id number] 2021-Present [phone] [address] [address] [place] [address] O [id number] 2017 Medicaid [id number]. [id number] 2017 Medicaid [id number]. [id number] 2014 Medicare [id number] 2014 Medicare [id number]. [id number] 2014 Medicare [id number] 1950 Unknown [id number] 2..1.005553.3.579.2. 627 1950 Unknown [id number] ..1.485109.3.579.2. 627 Private Health Insurance [facility] [facility] [id number] Unknown [id number] Unknown [id number] Unknown [id number] 20.1.144787.3.579.2. 462 Unknown [id number] ..1.502377.3.579.2. 462 Unknown [id number] 2.0.1.491067.3.579.2. 462 Unknown [id number] 2.0.1.743489.3.579.2. 462 Unknown [id number] 2.840.1.151118.3.579.2. 462 Unknown [id number] 2.0.1.230190.3.579.2. 462 Unknown [id number] 2.16.840.1.455320.3.579.2. 462 Unknown [id number] 2.16.840.1.217530.3.579.2. 462 Unknown [id number] 2.16.840.1.069623.3.579.2. 462 Unknown [id number] 2.16.840.1.265806.3.579.2. 462 Unknown [id number] 2.16.840.1.548596.3.579.2. 462 Unknown [id number] 2.16.840.1.149544.3.579.2. 462 Unknown [id number] 2.16.840.1.530934.3.579.2. 462 Unknown [id number] 2.16.840.1.245542.3.579.2. 462 Unknown [id number] 2.16.840.1.024787.3.579.2. 462 Unknown [id number] 2.16.840.1.834584.3.579.2. 462 Unknown [id number] 2.16.840.1.404885.3.579.2. 462 Unknown [id number] 2.16.840.1.570710.3.579.2. 462 Unknown [id number] 2.16.840.1.379080.3.579.2. 462 Unknown [id number] 2.16.840.1.035760.3.579.2. 462 Unknown [id number] 2.16.840.1.232795.3.579.2. 462 Unknown [id number] 2.16.840.1.625919.3.579.2. 462 Unknown [id number] 2.16.840.1.643890.3.579.2. 462 Unknown [id number] 2.16.840.1.605277.3.579.2. 462 Unknown [id number] 2.16.840.1.723288.3.579.2. 462 Unknown [id number] 2.16.840.1.441824.3.579.2. 462 Unknown [id number] 2.16.840.1.826075.3.579.2. 462 Social History Date Type Detail Facility Start: 04-10-2020 Tobacco smoking stat us NHIS Ex-smoker [facility] Start: 06-19-1964 History of tobacco use Cigarette Smo ker [facility] Start: 04-10-2020 End: 12-26-2022 Cigarettes smoked current (pack per day) - Reported 2 [facility] Start: 04-10-2020 End: 03-23-2024 Tobacco use and exposure Smokeless tobacco non-user [facility] Start: 08-26-2021 End: 12-12-2024 Alcohol intake Current non-drinker of alcohol (finding) [facility] Start: 04-16-2015 History SDOH Alcohol Comment History of alcohol abuse. I cut that out. [facility] Start: 12-17-2019 History SDOH Financial 5 [facility] Start: 12-17-2019 History SDOH Food Worry 2 [facility] Start: 12-17-2019 History SDOH Food Scarcity 1 [facility] Start: 08-22-2019 End: 01-31-2022 Tobacco Comment patient started using patches [facility] Start: 1950 Sex Assigned At Not on file [facility] Start: 10-12-2020 End: 03-10-2022 Exposure to SARS-CoV-2 (event) Not sure [facility] Start: 09-15-2021 End: 12-17-2024 Tobacco smoking status NHIS Smokes tobacco daily [facility] Start: 09-17-2021 End: 04-02-2023 Tobacco smoking status NHIS Unknown if ever smoked [facility] Start: 01-20-2021 None [facility] Start: 12-16-2019 Alf [facility] Start: 08-09-2020 Cigarettes [facility] Start: 1950 Sex Assigned At Male [facility] Start: 09-14-2021 End: 01-28-2022 Exposure to SARS-CoV-2 (event) Unable to assess [facility] Start: 05-14-2018 Tobacco smoking status Light t obacco smoker (finding) [facility] Sex Assigned At Sex [facility] Start: 12-17-2019 End: 12-26-2022 Tobacco use panel [facility] How hard is it for y ou to pay for the very basics like food, housing, medical care, and heating Not hard at all [facility] (I/We) worried massimo er (my/our) food would run out before (I/we) got money to buy more. Sometimes true [facility] The food that (I/we) bought just didn't last, and (I/we) didn't have money to get more. Never true [facility] Start: 06-19-1963 History of tobacco use Current smoke r [facility] Start: 08-25-2024 End: 08-25-2024 Tobacco smoking status NHIS Current some day smoker [facility] Start: 08-25-2024 End: 09-02-2024 Sex Male (finding) [facility] Medical Equipment Procedure Code Equipment Code Equipment Original Text Equipment Identifier Dates Graft Rigby 7mm T hin Wall Heparin Propaten Ptfe 80cm 60cm Vascular Removable - [id number] Start: 10-10-2019 Patch Cv 8x.8cm Tapr Vsgrd Bov - [id number] Start: 10-23-2013 Comment on above: Description: Implant ed left femoral artery Patch Vascu-Guar d Taper Bovine Pericardial 8x.8cm Cardiovascular [place] - [id number] Start: 10-08-2019 Stent Palmaz Gen esis Opta Pro Flexsegment 8mm 40mm Large Stainless Steel 80 - [id number] Start: 10-08-2019 Stent Palmaz Gen esis Opta Pro Flexsegment 8mm 40mm Large Stainless Steel 80 - [id number] Start: 10-08-2019 Stent Trchbr 7mm 7fr 38mm 120 - [id number] Start: 10-23-2013 Comment on above: Description: Second stent lot #[id number]. exp. 03/2016 Stent Vasc 8mm 1 5cm 120cm .035 - [id number] Start: 10-23-2013 Comment on above: Description: Implant ed in left iliac artery Stent Trchbr 7mm 7fr 38mm 120 - [id number] Start: 10-23-2013 Stent Corey 10mm 8 0mm 120cm .035 - [id number] Start: 10-23-2013 Comment on above: Description: Implant ed in right iliac artery Stent Corey 10mm 8 0mm 120cm .035 - [id number] Start: 10-23-2013 Comment on above: Description: Implant ed in right iliac artery Stent Icast 8mm Ptfe Stainless Steel 59mm 80cm Tracheobronchial Covered - [id number] Start: 10-08-2019 Stent Icast 8mm Ptfe Stainless Steel 59mm 80cm Tracheobronchial Covered - [id number] Start: 10-08-2019 Goals Date Patient Goal Desired Activity /State Personal health goal Personal health goal Comment on above: Formatting of this n ote might be different from the original. Relief of back pain Comment on above: Formatting of this n ote might be different from the original. Relief of back pain Functional Status Date Assessment Result Facility 12-16-2024 Functional status With Assist of 1 [facility] Work Phone: 12-16-2024 Functional status Ambulates;Back to bed [facility] Work Phone: 09-02-2024 Functional status With Assist of 1 [facility] Work Phone: 09-01-2024 Functional status Bathroom Privilege [facility] Work Phone: 08-02-2023 Functional status With Assist of 1 [facility] Work Phone: 08-01-2023 Functional status Bedrest [facility] Work Phone: 07-26-2023 Functional status Chair [facility] Work Phone: 07-26-2023 Functional status Bedrest [facility] Work Phone: 07-25-2023 Functional status None [facility] Work Phone: 04-04-2023 Functional status Up ad chadwick;Bath room Privilege [facility] Work Phone: 10-22-2022 Functional Status Minimum assistance [facility] 10-22-2022 Functional Status Standard Safet y ID band on, Call device within reach, Bed in low position, Wheels locked, Upper/Half-Length side-rails up, Phone within reach, Bedside Cart Locked [facility] 11-30-2021 Functional status Ambulates [facility] Work Phone: 09-29-2021 Functional Status [place] Dewayne hess [facility] 09-13-2021 Are you deaf, or do you have serious difficulty hearing No 09/13/2021 4:47 PM Bessy Ovalles, ОЛЕГ No [facility] 09-13-2021 Are you blind, or do you have serious difficulty seeing, even when wearing glasses No 09/13/2021 4:47 PM Bessy Ovalles, ОЛЕГ No [facility] 09-13-2021 Do you have serious difficulty walking or climbing stairs No 09/13/2021 4:47 PM Bessy Ovalles, ОЛЕГ No [facility] 09-13-2021 Do you have difficul ty dressing or bathing No 09/13/2021 4:47 PM Bessy Ovalles, ОЛЕГ No [facility] 09-13-2021 Because of a physica l, mental, or emotional condition, do you have difficulty doing errands alone such as visiting a physician's office or shopping No 09/13/2021 4:47 PM Bessy Ovalles, ОЛЕГ No [facility] 08-21-2021 Functional status Ambulates;Emeka r;Bathroom Privilege [facility] Work Phone: 08-21-2021 Functional status Tolerates Activity Well [facility] Work Phone: Mental Status Date Assessment Result Facility 12-17-2024 Cognitive function Voice/Name [facility] Work Phone: 12-16-2024 Cognitive function Voice/Name [facility] Work Phone: 09-02-2024 Cognitive function Voice/Name [facility] Work Phone: 08-25-2024 Cognitive function Level Of Cons ciousness Awake;Alert;Appropriate;Fol lows Commands [facility] Work Phone: 08-02-2023 Cognitive function Voice/Name [facility] Work Phone: 07-26-2023 Cognitive function Person;Place;Time [facility] Work Phone: 07-25-2023 Cognitive function Voice/Name [facility] Work Phone: 04-04-2023 Cognitive function Voice/Name [facility] Work Phone: 02-17-2023 Cognitive function Level Of Cons ciousness Awake;Alert;Appropriate;Fol lows Commands [facility] Work Phone: 12-31-2022 Cognitive function Level Of Cons ciousness Awake;Alert;Appropriate;Fol lows Commands [facility] Work Phone: 10-22-2022 Mental Status Orientation Oriented x 4 [facility] 10-22-[address] [facility] 03-07-2022 Cognitive function Level Of Cons ciousness Awake;Alert;Appropriate [facility] Work Phone: 03-02-2022 Cognitive function Level Of Cons ciousness Awake;Alert;Appropriate [facility] Work Phone: 01-28-2022 Cognitive function Level Of Cons ciousness Awake;Alert;Appropriate;Fol lows Commands [facility] Work Phone: 11-30-2021 Cognitive function Voice/Name [facility] Work Phone: 10-08-2021 Cognitive function Level Of Cons ciousness Awake;Alert;Appropriate;Fol lows Commands [facility] Work Phone: 09-29-2021 [facility] 09-13-2021 Because of a physica l, mental, or emotional condition, do you have serious difficulty concentrating, remembering, or making decisions No 09/13/2021 4:47 PM EDT Bessy Nunez, ОЛЕГ No [facility] 08-21-2021 Cognitive function Voice/Name [facility] Work Phone: 06-12-2021 Cognitive function Level Of Cons ciousness Awake;Alert;Appropriate;Fol lows Commands [facility] Work Phone: Clinical Notes 10-08-2019 to 12-17-2024 Note Date & Type Note Facility 12-17-2024 Radiology Diagnostic study note [facility] 12-17-2024 Radiology Diagnostic study note [facility] Work Phone: 12-17-2024 Radiology Diagnostic study note [facility] 12-17-2024 Discharge summary Note Date/Time December 17, 2024 5:41pm [facility] Medical Records Department [address] [place] [address] Emergency Department Summary 12/17/24 MR#: [id number] Acct: [id number] Name: PEDRO PABLO SIERRA Shannan Rep #:[id number] : 1950 74 From: Seth Pritchard DO PCP: Dr. Daija Morton MD Status:REG E R Location: ED HPI History of Present Illness Chief Complaint: Stroke Alert Narrative Narrative: Patient is a 74-year-old male with past medical history of COPD, BPH, ulcer colitis, peripheral vascular disease, atrial fibrillation, PJ, hypercholesteremia who presented to the emergency department the chief complaintof altered mental status and right-sided facial droop. Per EMS he was recently discharged from the hospital with a COPD exacerbation. EMS states that according to his he was doing well until this afternoon he was not following commands and had drooling with facial droop therefore they called EMS to have her brought here for further evaluation management. Per EMS he is not ablood thinner medications. They state that he is not following commands. They state his last known well was around noon according to at home. [facility] Medical History Weakness Debility Failure to thrive Compression fx, lumbar spine Hypertension Falls Hypertension [...] mg tablet 5 mg PO DAILY prostate 11/1412/13/24 08:58 History atorvastatin 40 mg tablet 40 mg PO QHS Cholesterol 12/0212/12/24 History mirtazapine 15 mg tablet 15 mg PO QHS anti depressant 08/16/19 12/12/24 20:59 History clopidogrel 75 mg tablet 75 mg PO DAILY blood thinner 10/25/19 12/13/24 History losartan 100 mg tablet 100 mg PO DAILY Blood pressu re 08/19/21 12/13/24 08:58 History pantoprazole 40 mg tablet,delayed 40 mg PO DAILY GERD 08/19/21 12/13/24 08:00 History release nifedipine 90 mg tablet,extended 90 mg PO DAILY blood pressure 11/25/21 12/13/24 08:59 History release alendronate 70 mg tablet 70 mg PO QWEEK OSTEOPROSIS # 1 TAB 11/30/21 12/09/24 Rx metoprolol tartrate 25 mg tablet 25 mg PO DAILY Blood pressure 03/30/23 12/13/24 08:59 History sennosides 8.6 mg-docusate sodium 2 tab PO BID PRN PRN Constipation 04/04/23 Unknown Rx 50 mg tablet (Stool #0 tabs Softener-Stimulant Laxative) albuterol sulfate 90 mcg/actuation 1 puff inhalation Q 8H SOB 08/22/23 12/13/24 08:53 History aerosol inhaler carbamazepine 200 mg 200 mg PO Q12H SEIZURES 11/0912/13/24 08:55 History tablet,extended release,12 hr cholecalciferol (vitamin D3) 50 50 mcg PO DAILY SUPPLE MENT 08/22/23 12/13/24 History mcg (2,000 unit) tablet sertraline 100 mg tablet 100 mg PO DAILY DEPRESSION 0 08/22/23 Unknown History ergocalciferol (vitamin D2) 1,250 1,250 mcg PO Q7D SUP PLEMENT #0 caps 04/10/24 12/13/24 08:58 Rx mcg (50,000 unit) capsule (Vitamin D2) clonidine HCl 0.1 mg tablet 0.1 mg PO TID HTN #0 tabs 09/02/24 Unknown Rx dextromethorphan-guaifenesin ER 60 1 tab PO BID COUGH 7 days #14 tabs 09/02/24 12/13/24 Rx mg-1,200 mg tab,extend release,12hr nicotine 14 mg/24 hr daily 14 mg transdermal DAILY MARY OTINE 09/02/24 Unknown Rx transdermal patch 28 days #28 ea prednisone 20 mg tablet 40 mg (2 x 20 mg) PO BREAKFA ST 1 09/02/24 Unknown Rx day #2 tabs acetaminophen 500 mg tablet 1,000 mg PO Q8 PRN fever o r pain 12/13/24 Unknown History albuterol sulfate 2.5 mg/3 mL 2.5 mg continuous nebuli zation 12/13/24 12/13/24 History (0.083 %) solution for nebulization DAILY SHORTNESS OF BREATH clonidine 0.2 mg/24 hr weekly 1 patch topical QWEEK BL OOD 12/13/24 Unknown History transdermal patch PRESSURE gabapentin 100 mg capsule 100 mg PO DAILY PAIN 5 12/13/24 08:58 History nicotine 21 mg/24 hr daily 1 patch transdermal DAILY # 14 ea 12/16/24 Unknown Rx transdermal patch (Nicoderm CQ) prednisone 10 mg tablet 10 mg PO DAILY #40 tabs 11/19 Unknown Rx Allergy/AdvReac Type Severity Reaction Status Date / Time No Known Allergies Allergy Verified 04/06/24 11:12 Family History Mother Heart disease CVA (cerebral vascular accident) Hypertension Father Heart disease CVA (cerebral vascular accident) Hypertension Surgical History S/P arterial stent History of appendectomy Social History household members: family 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 Smoking Status: Current every day smoker tobacco type: cigarettes alcohol intake: former details: Former alcoholic quit several years ago substance use type: does not use caffeine: Yes Type: coffee Number of servings: 3 ROS ROS ED ROS Narrative Review of systems unobtainable from the patient as he would just stare at me andnot talk therefore acute care caveat applies EXAM Physical Exam Narrative Exam Narrative: General: Patient sitting in the, at rest comfortably did not appear to be in acute distress Head: Atraumatic, normocephalic Eyes: PERRL bilaterally, EOMI bilateral, no conjunctival injection noted Neck: Soft, supple, trachea midline Cardiovascular: Regular rate and rhythm no murmurs gallops rubs noted Respiratory: Clear to auscultation bilaterally Abdomen: Soft, nondistended Extremities: Radial pulses +2/4 in the bilateral extremities, patient has diffuse weakness in his bilateral upper and lower extremities +3/5 noted in the upper and lowers Neurological: Patient was following commands he was able to close his eyes he was able to hold his arms up without any drift. Patient was unable to talk for me and I did not appreciate a facial droop on exam Skin: Warm, dry, intact no rashes lesions noted Const Vital Signs: 12/17/24 15:53 12/17/24 16:11 12/17/24 16:21 Temperature 98.5 F 98.5 F Temperature Source Oral Oral Pulse Rate 68 70 Respiratory Rate 20 H 18 Blood Pressure 184/76 H 184/70 H Blood Pressure Mean 112 108 Pulse Ox 98 97 98 Oxygen Delivery Method Room Air Nasal Cannula Nasal Cannula Oxygen Flow Rate (L/min) 2 2 12/17/24 16:23 12/17/24 16:30 12/17/24 17:00 Temperature Temperature Source Pulse Rate 67 69 71 Respiratory Rate Blood Pressure 173/74 H 169/83 H 178/80 H Blood Pressure Mean 107 111 112 Pulse Ox 98 98 98 Oxygen Delivery Method Nasal Cannula Oxygen Flow Rate (L/min) 2 12/17/24 17:30 Temperature Temperature Source Pulse Rate 65 Respiratory Rate Blood Pressure 169/66 H Blood Pressure Mean 100 Pulse Ox 99 Oxygen Delivery Method Nasal Cannula Oxygen Flow Rate (L/min) 2 MDM MDM MDM Narrative Medical decision making narrative: Patient is a 74-year-old male who presented to the emergency department via EMS prehospital stroke alert called. On the differential diagnose includes but not limited to hypoglycemia which patient's blood glucose was normal, intracranial hemorrhage, CVA, posterior circulation stroke, large vessel occlusion, electrolyte abnormality, ACS. Once workup is obtained reviewed he will be reevaluated. Patient be given IV fluids for hydration. Patient is not tenecteplase candidate as his last known well was around noon andhe is outside of the 48-hour window he was evaluated by teleneurologist Dr. Art who agrees with this plan. Patient CBC reviewed and showed no evidence leukocytosis white blood count 8.5, he was 12.4, platelet count was 417. Patient's coagulation studies pending, chemistries pending as well. Patient's EKG reviewed and showed atrial fibrillation with a rate of 70 beats per minutes. Patient's chest x-ray reviewed by myself's official read from radiology still pending however no appreciable cardiopulmonary processes noted. Patient CT head brain without contrast showed cerebral atrophy no evidence of acute intracranial pathology. Patient's CTA head and neck reviewed and showed right ICA stenosis 75% left ICA stenosis of 50% no evidence of large vessel occlusion. Will discuss case with hospitalist for admission for further stroke workup. Patient given 325 mg aspirin. Discussed case with hospitalist Dr. Patel who accept patient for admission. Patient vitals reviewed spinal course concerns answered. Lab Data Labs: Laboratory Results - last 24 hr 12/17/24 16:00 WBC 8.5 RBC 4.45 L Hgb 12.4 L Hct 39.6 L MCV 89.0 MCH 27.9 MCHC 31.3 L RDW Std Deviation 45.6 H RDW Coeff of Aly 14.0 Plt Count 417 MPV 10.0 Immature Gran % (Auto) 0.400 Neut % (Auto) 77.5 H Lymph % (Auto) 12.1 L Elliott % (Auto) 7.8 Eos % (Auto) 1.1 Baso % (Auto) 1.1 H Absolute Neuts (auto) 6.6 Absolute Lymphs (auto) 1.03 Nucleated RBC % 0 Radiography Diagnostic Testing: Clinical Impression(s) from Imaging Studies Brain CT 12/17/24 15:53 IMPRESSION: 1. Cerebral atrophy. 2. No evidence of acute intracranial pathology. 3. Other findings as noted. Findings were called to the [facility] emergency department on 12/17/2024 at 4:35 p.m. Reading Location: [id number] Head/Neck CTA 12/17/24 15:53 IMPRESSION: Right ICA stenosis of 75%. Left ICA stenosis of 50%. Additional atherosclerosis as above. Biapical pulmonary scarring and emphysema. Reading Location: [id number] Chest X-Ray 12/17/24 15:54 IMPRESSION: Hyperaerated lungs which can suggest COPD. Stable scarring. Reading Location: [id number] Discharge Plan Triage Chief Complaint: Stroke Alert ED Provider: Seth Pritchard Dx/Rx/DC Orders Clinical Impression: Aphasia, COPD exacerbation, Hypertension, Acute on chronic respiratory failure with hypoxia and hypercapnia, Facial droop Prescriptions: No Action albuterol sulfate 90 mcg/actuation HFA aerosol inhaler 1 puff inhalation Q8H carbamazepine 200 mg tablet extended release 12 hr 200 mg PO Q12H sertraline 100 mg tablet 100 mg PO [...] PRN PRN (Reason: Constipation) Qty: 0 0RF albuterol sulfate 2.5 mg /3 mL (0.083 %) solution for nebulization 2.5 mg continuous nebulization DAILY Patient Comments: [NO ORIGINAL SIG] clonidine 0.2 mg/24 hr patch weekly 1 patch topical QWEEK Patient Comments: HAS ONE ON NOW gabapentin 100 mg capsule 100 mg PO DAILY acetaminophen 500 mg Tablet 1,000 mg PO Q8 PRN (Reason: fever or pain) prednisone 10 mg tablet 10 mg PO DAILY Qty: 40 0RF Rx Instructions: 4 tablets x 4 days, 3 tablets x 4 days, 2 tablets x 4 days, 1 tablet x 4 days nicotine [Nicoderm CQ] 21 mg/24 hr patch 24 hour 1 patch transdermal DAILY Qty: 14 0RF ergocalciferol (vitamin D2) [Vitamin D2] 1,250 mcg (50,000 unit) Capsule 1,250 mcg PO Q7D Qty: 0 0RF clonidine HCl 0.1 mg Tablet 0.1 mg [...] Instructions: For 1 more day tomorrow 09/03/2024 Primary Care Provider: Daija Morton Referrals: Daija Morton MD [Primary Care Provider] - Print Language: [place] Citizen Disposition Disposition: Acute Care Hospital [facility] What to do if you have Problems For any increased pain, shortness of breath, bleeding, nausea or vomiting, chestpain, or any unexpected problems, contact your Primary Care Provider. Call [facility] ([phone]) or report to the closest Emergency Room. Call 911 if necessary. 12/17/24 1741 <Electronically signed by Seth Pritchard DO> Cosigner Signature (if applicable): CC: Dr. Daija Morton MD ~ Signed [facility] Work Phone: [phone] 447-724106-30-2025 Discharge summary Author Lisha Talamantes [facility] Note Date/Time December 16, 2024 12:5 3pm [facility] Medical Records Department [address] [place] [address] Discharge Summary 12/16/24 1137 MR#: [id number] Acct: [id number] Name: PEDRO PABLO SIERRA Rep #:[id number] : 1950 74 From: Lisha Talamantes DO PCP: Dr. Daija Morton MD Status:ADM I N Location: [place] [address] Providers Date of Admission: 12/13/24 Date of Discharge: 12/16/24 Primary Care Physician: Dr. Daija Morton MD Reason For Visit: ACUTE ON CHRONIC HYPOXIA RF, COPD/ASTHMA EXAC Diagnosis Discharge Diagnosis (1) COPD exacerbation: Status: Chronic Code(s): J44.1 - Chronic obstructive pulmonary disease with (acute) exacerbation (2) Acute on chronic respiratory failure with hypoxia and hypercapnia: Status: Chronic Code(s): J96.21 - Acute and chronic respiratory failure with hypoxia; J96.22 - Acute and chronic respiratory failure with hypercapnia Plan Acute on chronic hypoxic and hypercapnic respiratory failure secondary to acute exacerbation of COPD - Patient required BiPAP initially on presentation but now back to close his baseline oxygen - Exact baseline is unclear as patient initially told the ED 2 L and then told me 4 L - Will need to verify on Monday with his DME supplier - Continue scheduled and as needed nebulizers - Continue IV Solu-Medrol - Continue I-S and Pep therapy - Continue Mucinex 1200 p.o. twice daily - Obtain sputum culture if able - Previous CT of the chest does show pretty marked emphysematous changes especially apically bilaterally - Will check home O2 eval tomorrow Chronic normocytic anemia - Counts remain stable - Monitor CKD stage II - Creatinine stable - Follow Generalized weakness/debility/failure to thrive - family is having difficulty taking care of him in the current living environment - Patient likely would benefit from ECF - PT/OT/case management following - Patient does have injuries from previous falls Osteoporosis -Restart alendronate at discharge -Cont home cholecalciferol Seizure disorder -Continue home carbamazepine CAD/essential hypertension/hyperlipidemia/history of stroke/PAD -Blood pressure is markedly elevated on presentation however it does not appear patient been compliant with his medications - Continue home nifedipine 90 mg daily - Continue home metoprolol 25 mg p.o. daily - Continue home losartan 100 mg daily - Continue home clonidine 0.1 mg p.o. twice daily - Continue as needed hydralazine History of atrial fibrillation - Continue beta-joel - Patient is not on anticoagulation due to falls BPH with obstruction -continue home Flomax -Continue home finasteride GERD -continue PPI Tobacco abuse -continue nicotine patch -Recommend cessation Alzheimer's type dementia -Suspect patient needs more supervision than the currently available home -Monitor for behavior abnormalities and sundowning -May need to consider adding low-dose risperidone if problematic Depression - Continue home sertraline DVT prophylaxis -Subcu Lovenox daily CODE STATUS - Full code Medications at Discharge Home Medications tamsulosin 0.4 [...] 70 mg tablet 70 mg PO QWEEK OSTEOPROSIS #1 TAB 11/30/21 metoprolol tartrate 25 mg tablet 25 mg PO DAILY Blood pressure 03/30/23 sennosides 8.6 mg-docusate sodium 50 mg tablet (Stool Softener-Stimulant Laxative) 2 tab PO BID PRN PRN Constipation #0 tabs 04/04/23 albuterol sulfate 90 mcg/actuation aerosol inhaler 1 puff inhalation Q8H SOB 08/22/23 carbamazepine 200 mg tablet,extended release,12 hr 200 mg PO Q12H SEIZURES 08/22/23 cholecalciferol (vitamin D3) 50 mcg (2,000 unit) tablet 50 mcg PO DAILY SUPPLEMENT 08/22/23 sertraline 100 mg tablet 100 mg PO DAILY DEPRESSION 08/22/23 ergocalciferol (vitamin D2) 1,250 mcg (50,000 unit) capsule (Vitamin D2) 1,250 mcg PO Q7D SUPPLEMENT #0 caps 04/10/24 clonidine HCl 0.1 mg tablet 0.1 mg PO TID HTN #0 tabs 09/02/24 dextromethorphan-guaifenesin ER 60 mg-1,200 mg tab,extend release,12hr 1 tab PO BID COUGH 7 days #14 tabs 09/02/24 nicotine 14 mg/24 hr daily transdermal patch 14 mg transdermal DAILY NICOTINE 28days #28 ea 09/02/24 prednisone 20 mg tablet 40 mg (2 x 20 mg) PO BREAKFAST 1 day #2 tabs 09/02/24 acetaminophen 500 mg tablet 1,000 mg PO Q8 PRN fever or pain 12/13/24 albuterol sulfate 2.5 mg/3 mL (0.083 %) solution for nebulization 2.5 mg continuous nebulization DAILY SHORTNESS OF BREATH 12/13/24 clonidine 0.2 mg/24 hr weekly transdermal patch 1 patch topical QWEEK BLOOD PRESSURE 12/13/24 gabapentin 100 mg capsule 100 mg PO DAILY PAIN 12/13/24 nicotine 21 mg/24 hr daily transdermal patch (Nicoderm CQ) 1 patch transdermal DAILY #14 ea 12/16/24 prednisone 10 mg tablet 10 mg PO DAILY #40 tabs 12/16/24 Hospital Course Operations None Procedures EKG and - (Chest x-ray) Summary of Care Provided Minutes Spent on Discharge: 38 Hospital Course: Mr. Sierra is a 74-year-old white male who presented to the emergency departmentat [facility] on 12/13/2024 with shortness of breath and wheezing. He has a history of chronic hypoxic respiratory failure requiring 2 Lat baseline [id number]. Patient reported that about the last 2 days priorto presentation he had increasing fatigue, malaise, and severe wheezing with tightness in his chest. He feels that the heat is predisposing him to exacerbation of his COPD. He was recently raised from [facility] and has been at home. There are multiple social issues with regards to him going back home which have been addressed by social work and remedied. At the time of admission he was requiring 4 L nasal cannula to maintain oxygen saturations. He had considerable wheeze on exam. Vital signs on presentation showed a temperature of 98.3 heart rate 65, respiratory was 22, initial blood pressure was 226/90 with a repeat of 185/72. Pulse ox was 100% on 3-1/2 to 4 L nasal cannula. CBC showed a chronic stable anemia but no white count or left shift. His chemistry panel was overtly unremarkable. Chest x-ray showed stability when compared to previous exam. We obtained COVID/flu/RSV which was unremarkable. Respiratory viral panel was unremarkable. Blood cultures were negative at 48 hours. Patient did not report any significant changes in sputum production therefore he was admitted and treated for COPD exacerbation without antibiotics. He was placed on IV Solu-Medrol, aggressive pulmonary toilet, I-S,and Acapella. Slowly with time his oxygenation improved to the point where he was back on 2 L nasal cannula. We were able to verify with his DME supplier that this is his baseline oxygen requirement. He was evaluated for his oxygen status at the time of discharge both at rest and with exertion. He was requiring 2 L both at rest and with exertion. No extra supplemental oxygen willbe required. He already has DuoNebs at home and is on inhalers. We did place him on a very slow prednisone taper. His wheezing significantly improved throughout his hospital course and was minimal at the time of discharge. He wasable to be discharged home in stable condition on 12/16/2024. Assistance had been provided and follow-up was arranged by case management and social work prior to discharge. Discharge diagnoses: Acute on chronic hypoxic and hypercapnic respiratory failure secondary to acute exacerbation of COPD Chronic normocytic anemia CKD stage II Generalized weakness Debility Failure to thrive Osteoporosis Seizure disorder CAD Essential hypertension Hyperlipidemia History of stroke Peripheral arterial disease History of A-fib BPH with obstruction GERD Tobacco abuse Alzheimer's type dementia Depression Physical Exam Const alert, oriented x3, no apparent distress, average body habitus, no limitations and well nourished; Negative for healthy appearing Constitutional Narrative: Older, thin, white male, sitting up in a chair at the bedside, watching television, nursing at bedside, not toxic General Appearance: cooperative, comfortable, well kempt and well developed Exam Limitations: no limitations HEENT normocephalic, head/scalp atraumatic and moist oral mucous membranes HEENT Narrative: no thrush Eyes conjunctivae normal Eyes Narrative: no icterus Neck supple Neck Narrative: trachea midline Resp normal respiratory effort, no retractions, no use of accessory muscles and No clear to auscultation bilaterally Resp Narrative: scattered end expiratory and inspiratory wheezes however overall improved Auscultation: wheezes; Negative for rales or rhonchi Cardio regular rate, regular rhythm, S1 normal heart sound, S2 normal heart sound, no murmurs, no rub, no gallops and no clicks GI normal to inspection, nondistended, normoactive bowel sounds, soft to palpation and non-tender Extremity no clubbing, cyanosis or edema Extremity Narrative: 2+ pedal pulses, 2+ radial pulses Skin skin turgor normal, no jaundice, no petechiae and no mottling Neuro oriented x3, moves all extremities and no focal motor deficits Speech: speech normal Psych affect normal Psych Narrative: Pleasant, interacts appropriately Weight / BMI Weight Weight: 70.1 kg Body Mass Index (BMI) 23.4 ABG / Lab / Microbiology Data 12/15/24 05:19 12/16/24 06:35 Laboratory: Laboratory Results - last 24 hr 12/16/24 06:35: Sodium 140, Potassium 3.6, Chloride 102, Carbon Dioxide 25.5, Anion Gap 12, BUN 29 H, Creatinine 1.17, Estim Creat Clear Calc 52.78, Est GFR (MDRD) Non-Af 65, BUN/Creatinine Ratio 24.5 H, Glucose 108 H, Calcium 9.4 Microbiology: Microbiology 12/13/24 20:45 Blood Culture (Wb) - Left Hand Blood Culture - Preliminary No growth in 48 hours. 12/13/24 18:26 Blood Culture (Wb) - Left Hand Blood Culture - Preliminary No growth in 48 hours. 12/13/24 20:22 Mucosa - Nasopharyngeal Respiratory Panel (PCR) - Final 12/13/24 18:26 Mucosa - Nose SARS-CoV-2, Influenza & RSV (PCR) - Final D/C Instructions Discharge Diet: Low fat / Low cholesterol Discharge Activity: Return to Normal Activity DC O2, CPAP, BIPAP Needs Home O2 Discharge instructions: Yes Type of respiratory needs?: Oxygen Oxygen frequency: Continuous Continuous oxygen liters per minute: 2 DC home with Oxygen: Yes Home O2 MD Review: I have reviewed the oxygen testing, and the patient qualifies for home oxygen equipment and portability. The patient is mobile in the home and the community. Meaningful Use Info Meaningful Use Meaningful Use [...] Simvastatin 80mg Discharge Plan Admission Admit Date/Time: 12/13/24 20:07 Primary Reason for Your Visit: Shortness of breath Attending Provider: Lisha Talamantes Primary Care Provider: Daija Morton Consulting Providers: Shilpa Contreras Instructions Additional Instructions / Restrictions: 1. Avoid being out in the heat and humidity. Try to be in an air conditioned environment as much as possible. If you must go out try to do so in the am or pm Discharge Orders/Prescriptions Prescriptions: New prednisone 10 mg tablet 10 mg PO DAILY Qty: 40 0RF Rx Instructions: 4 tablets x 4 days, 3 tablets x 4 days, 2 tablets x 4 days, 1 tablet x 4 days nicotine [Nicoderm CQ] 21 mg/24 hr patch 24 hour 1 patch transdermal DAILY Qty: 14 0RF Continued albuterol sulfate 90 mcg/actuation HFA aerosol inhaler 1 puff inhalation Q8H carbamazepine 200 mg tablet extended release 12 hr 200 mg PO Q12H sertraline 100 mg tablet 100 mg PO [...] PRN PRN (Reason: Constipation) Qty: 0 0RF albuterol sulfate 2.5 mg /3 mL (0.083 %) solution for nebulization 2.5 mg continuous nebulization DAILY Patient Comments: [NO ORIGINAL SIG] clonidine 0.2 mg/24 hr patch weekly 1 patch topical QWEEK Patient Comments: HAS ONE ON NOW gabapentin 100 mg capsule 100 mg PO DAILY acetaminophen 500 mg Tablet 1,000 mg PO Q8 PRN (Reason: fever or pain) ergocalciferol (vitamin D2) [Vitamin D2] 1,250 mcg (50,000 unit) Capsule 1,250 mcg PO Q7D Qty: 0 0RF clonidine HCl 0.1 mg Tablet 0.1 mg [...] Instructions: For 1 more day tomorrow 09/03/2024 Referrals / Follow Up: Daija Morton MD [Primary Care Provider] - Within 1 Week (Please call and schedule appointment for hospital follow-up) Disposition Disposition (needs filled in before D/C Order can be placed): Home, Self Care Charges/Coding Visit Charges Inpatient E&M: 49240 Disch Hosp >30min 12/16/24 1253 <Electronically signed by Lisha Talamantes DO> Cosigner Signature (if applicable): CC: Dr. Daija Morton MD; Dr. Lisha Talamantes DO~ Signed [facility] Work Phone: 1(935) 225-879906-30-2025 Hospital Discharge instructionsAdditional Instructions 1. Avoid being out in the heat and humidity. Try to be in an air conditioned environment as much as possible. If you must go out try to do so in the am or pm Date of Discharge: 12/16/24[facility] Work Phone: 1(485) 726-931006-30-2025 [facility]06-30-2025 Telephone encounter Note* Telephone Encounter - Natalie Gross - 12/16/2024 8:45 AM EDT Prescription Refill Information The patient [...] Yes Requested Prescriptions Pending Prescriptions Disp Refills gabapentin (NEURONTIN) 100 mg capsule 60 capsule 0 Sig: Take 1 capsule by mouth two times a day for 30 days. Every AM and at bedtime. Natalie Flowers December 16, 2024 8:47 AM [facility]06-30-2025 Miscellaneous Notes* Telephone Encounter - Natalie Gross - 12/16/2024 8:45 AM EDT Prescription Refill Information The patient [...] Yes Requested Prescriptions Pending Prescriptions Disp Refills gabapentin (NEURONTIN) 100 mg capsule 60 capsule 0 Sig: Take 1 capsule by mouth two times a day for 30 days. Every AM and at bedtime. Natalie Flowers December 16, 2024 8:47 AM documented in this encounterProm[facility] Progress note Author Lisha Talamantes [facility] Note Date/Time December 15, 2024 1:21 pm [facility] Medical Records Department [address] [place] [address] Progress Note - Hospitalist 12/15/24 0743 MR#: [id number] Acct: [id number] Name: PEDRO PABLO SIERRA Rep #:[id number] : 1950 74 From: Lisha Talamantes DO PCP: Dr. Daija Morton MD Status:ADM I N Location: [place] [address] Reason for Visit Reason for Visit: Shortness of breath Subjective Subjective Patient states he short of breath and wants his home inhalers. We discussed that he gets his albuterol via the inhaler and the nebulizer relatively acute oblique however when he short of breath it may be better than via nebulizer. Patient states his breathing is terrible however his oxygenation status has improved and he is less wheezing on exam today. Objective Data Objective Data Vital Signs: Vital Signs Temp Pulse Resp BP Pulse Ox O2 Del Method O2 Flow Rate 97.1 F L 80 18 157/80 H 93 Nasal Cannula 3 12/15/24 03:38 12/15/24 07:00 12/15/24 07:00 12/15/24 06:16 12/15/24 07:00 12/15/24 07:00 12/15/24 07:00 Oxygen Flow Rate (L/min) 3 Oxygen Delivery Method Nasal Cannula Weight: 70.5 kg Body Mass Index (BMI) 23.6 Intake & Output: Intake and Output for Last 24 Hours 12/13/24 12/14/24 12/15/24 23:59 23:59 23:59 Intake Total 250 / 250 600 / 600 Output Total 650 / 650 500 / 500 Balance -400 / -400 100 / 100 Lab / Micro Data 12/15/24 05:19 12/15/24 05:19 Labs: Laboratory Results - last 24 hr 12/15/24 05:19: WBC 8.4, RBC 4.01 L, Hgb 11.3 L, Hct 35.6 L, MCV 88.8, MCH 28.2,MCHC 31.7 L, RDW Std Deviation 44.9 H, RDW Coeff of Aly 13.8, Plt Count 329, MPV10.0, Immature Gran % (Auto) 0.400, Neut % (Auto) 83.3 H, Lymph % (Auto) 9.8 L, Elliott % (Auto) 6.3, Eos % (Auto) 0.0, Baso % (Auto) 0.2, Absolute Neuts (auto) 7.0, Absolute Lymphs (auto) 0.82 L, Nucleated RBC % 0, Sodium 142, Potassium 4.1, Chloride 106, Carbon Dioxide 24.0, Anion Gap 12, BUN 22 H, Creatinine 1.10,Estim Creat Clear Calc 56.14, Est GFR (MDRD) Non-Af 70, BUN/Creatinine Ratio 20.1 H, Glucose 97, Calcium 9.3, Phosphorus 3.3, Magnesium 2.0 Micro: Microbiology 12/13/24 20:22 Mucosa - Nasopharyngeal Respiratory Panel (PCR) - Final 12/13/24 18:26 Mucosa - Nose SARS-CoV-2, Influenza & RSV (PCR) - Final Physical Exam Const alert, oriented x3, no apparent distress, average body habitus and well nourished; Negative for healthy appearing Constitutional Narrative: Older, thin, white male, sitting up in bed, watching television, nursing at bedside, not toxic HEENT head/scalp atraumatic and moist oral mucous membranes HEENT Narrative: Mallampati 2, no thrush Head and Scalp: normocephalic Resp normal respiratory effort, no retractions, no use of accessory muscles and No clear to auscultation bilaterally Resp Narrative: Still with this few scattered end expiratory and inspiratory wheezes however overall improved Auscultation: Negative for rales or rhonchi Cardio regular rate, regular rhythm, S1 normal heart sound, S2 normal heart sound, no murmurs, no rub, no gallops and no clicks GI normal to inspection, nondistended, normoactive bowel sounds, soft to palpation and non-tender Extremity no clubbing, cyanosis or edema Extremity Narrative: 2+ pedal pulses, 2+ radial pulses Neuro oriented x3, moves all extremities and no focal motor deficits Speech: speech normal Psych affect normal Psych Narrative: Pleasant, interacts appropriately Assessment & Plan Assessment/Plan (1) COPD exacerbation: (2) Acute on chronic respiratory failure with hypoxia and hypercapnia: PLAN: Plan Acute on chronic hypoxic and hypercapnic respiratory failure secondary to acute exacerbation of COPD - Patient required BiPAP initially on presentation but now back to close his baseline oxygen - Exact baseline is unclear as patient initially told the ED 2 L and then told me 4 L - Will need to verify on Monday with his DME supplier - Continue scheduled and as needed nebulizers - Continue IV Solu-Medrol - Continue I-S and Pep therapy - Continue Mucinex 1200 p.o. twice daily - Obtain sputum culture if able - Previous CT of the chest does show pretty marked emphysematous changes especially apically bilaterally - Will check home O2 eval tomorrow Chronic normocytic anemia - Counts remain stable - Monitor CKD stage II - Creatinine stable - Follow Generalized weakness/debility/failure to thrive - family is having difficulty taking care of him in the current living environment - Patient likely would benefit from ECF - PT/OT/case management following - Patient does have injuries from previous falls Osteoporosis -Restart alendronate at discharge -Cont home cholecalciferol Seizure disorder -Continue home carbamazepine CAD/essential hypertension/hyperlipidemia/history of stroke/PAD -Blood pressure is markedly elevated on presentation however it does not appear patient been compliant with his medications - Continue home nifedipine 90 mg daily - Continue home metoprolol 25 mg p.o. daily - Continue home losartan 100 mg daily - Continue home clonidine 0.1 mg p.o. twice daily - Continue as needed hydralazine History of atrial fibrillation - Continue beta-joel - Patient is not on anticoagulation due to falls BPH with obstruction -continue home Flomax -Continue home finasteride GERD -continue PPI Tobacco abuse -continue nicotine patch -Recommend cessation Alzheimer's type dementia -Suspect patient needs more supervision than the currently available home -Monitor for behavior abnormalities and ing -May need to consider adding low-dose risperidone if problematic Depression - Continue home sertraline DVT prophylaxis -Subcu Lovenox daily CODE STATUS - Full code Charges/Coding Visit Charges Inpatient E&M: 27679 Subs Hosp L2 12/15/24 1321 <Electronically signed by Lisha Talamantes DO> Cosigner Signature (if applicable): CC: ~ Signed [facility] Work Phone: 1(280) 426-753406-28-2025 Progress note Author Lisha Talamantes [facility] Note Date/Time December 14, 2024 3:55 pm [facility] Medical Records Department [address] [place] [address] Progress Note - Hospitalist 12/14/24 0810 MR#: [id number] Acct: [id number] Name: PEDRO PABLO SIERRA Rep #:[id number] : 1950 74 From: Lisha Talamantes DO PCP: Dr. Daija Morton MD Status:ADM I N Location: [place] [address] Reason for Visit Reason for Visit: Shortness of breath Subjective Subjective Patient states he still feels short of breath however he is on 2 L nasal cannulawhich is reported on initial admission documentation is his baseline. When I discussed this with him he states that he is on 4 L at home. Since it does appear that we are unclear we will have to assess on Monday to see exactly what his baseline oxygen requirement is. He does have known significant COPD. Per discussion with social work there are significant social issues as well. Objective Data Objective Data Vital Signs: Vital Signs Temp Pulse Resp BP Pulse Ox O2 Del Method O2 Flow Rate 98 F 72 18 165/80 H 91 Nasal Cannula 3 12/14/24 03:30 12/14/24 06:48 12/14/24 06:48 12/14/24 03:30 12/14/24 06:48 12/14/24 06:48 12/14/24 06:48 Oxygen Flow Rate (L/min) 3 Oxygen Delivery Method Nasal Cannula Weight: 70.5 kg Body Mass Index (BMI) 23.6 Intake & Output: Intake and Output for Last 24 Hours 12/12/24 12/13/24 12/14/24 23:59 23:59 23:59 Intake Total 250 / 250 Output Total 500 / 500 Balance -250 / -250 Lab / Micro Data 12/14/24 06:08 12/14/24 06:08 Labs: Laboratory Results - last 24 hr 12/13/24 18:26: WBC 5.9, RBC 4.15 L, Hgb 11.5 L, Hct 37.5 L, MCV 90.4, MCH 27.7,MCHC 30.7 L, RDW Std Deviation 44.8 H, RDW Coeff of Aly 13.7, Plt Count 299, MPV9.7, Immature Gran % (Auto) 0.300, Neut % (Auto) 67.3, Lymph % (Auto) 19.5, Elliott% (Auto) 8.9, Eos % (Auto) 3.0, Baso % (Auto) 1.0, Absolute Neuts (auto) 4.0, Absolute Lymphs (auto) 1.16, Nucleated RBC % 0, PT 12.5, INR 0.9, Sodium 141, Potassium 3.7, Chloride 104, Carbon Dioxide 24.4, Anion Gap 13, BUN 12, Creatinine 1.11, Estim Creat Clear Calc 55.63, Est GFR (MDRD) Non-Af 69, BUN/Creatinine Ratio 11.0, Glucose 102 H, Calcium 9.7, Procalcitonin 0.05 12/14/24 06:08: WBC 4.3 L, RBC 3.81 L, Hgb 10.6 L, Hct 33.7 L, MCV 88.5, MCH 27.8, MCHC 31.5 L, RDW Std Deviation 44.5 H, RDW Coeff of Aly 13.7, Plt Count 306, MPV 10.1, Immature Gran % (Auto) 0.200, Neut % (Auto) 79.3 H, Lymph % (Auto) 15.0 L, Elliott % (Auto) 5.3, Eos % (Auto) 0.0, Baso % (Auto) 0.2, Absolute Neuts (auto) 3.4, Absolute Lymphs (auto) 0.65 L, Nucleated RBC % 0, PT 13.5, INR1.0, Sodium 143, Potassium 3.8, Chloride 105, Carbon Dioxide 24.4, Anion Gap 13,BUN 13, Creatinine 1.04, Estim Creat Clear Calc 59.38, Est GFR (MDRD) Non-Af 75,BUN/Creatinine Ratio 12.3, Glucose 129 H, Calcium 9.5, Total Bilirubin < 0.15, AST 18, ALT 16, Alkaline Phosphatase 70, Total Protein 6.6, Albumin 4.0, Globulin 2.5, Albumin/Globulin Ratio 1.6 Micro: Microbiology 12/13/24 20:22 Mucosa - Nasopharyngeal Respiratory Panel (PCR) - Final 12/13/24 18:26 Mucosa - Nose SARS-CoV-2, Influenza & RSV (PCR) - Final ABG Data ABG results: ABG 12/13/24 20:49 Specimen Type LASHAE Sample Site Not entered O2 % 4.0 VBG pH 7.40 VBG pO2 56 H VBG HCO3 26 VBG Total CO2 28 VBG O2 Sat (Calc) 89 H VBG Base Excess 2 POC Mix VBG pCO2 Pt Tmp 42.7 O2 Delivery Device Cannula Radiography Diagnostic Testing: Radiology Impression Chest X-Ray 12/13/24 18:39 IMPRESSION: No significant change since last exam. Reading Location: [id number] Physical Exam Const alert, oriented x3, no apparent distress, average body habitus and well nourished; Negative for healthy appearing Constitutional Narrative: Older, thin, white male, sitting up in a chair at the bedside watching television, answers the phone while in the room and proceeds to talk on the phone instead of interacting with me, does not appear to have any conversationaldyspnea, not toxic HEENT head/scalp atraumatic, moist oral mucous membranes and oropharynx normal HEENT Narrative: Mallampati 2 Head and Scalp: normocephalic Resp normal respiratory effort, no retractions, no use of accessory muscles and No clear to auscultation bilaterally Resp Narrative: Marked end expiratory and inspiratory wheezing noted throughout the lung batres Cardio regular rate, regular rhythm, S1 normal heart sound, S2 normal heart sound, no murmurs, no rub, no gallops and no clicks GI normal to inspection, nondistended, normoactive bowel sounds, soft to palpation and non-tender Extremity no clubbing, cyanosis or edema Extremity Narrative: 2+ pedal pulses, 2+ radial pulses Neuro oriented x3, moves all extremities and no focal motor deficits Speech: speech normal Psych Psych Narrative: Affect is slightly flat but patient is calm and makes good eye contact Assessment & Plan Assessment/Plan (1) COPD exacerbation: (2) Acute on chronic respiratory failure with hypoxia and hypercapnia: PLAN: Plan Acute on chronic hypoxic and hypercapnic respiratory failure secondary to acute exacerbation of COPD - Patient required BiPAP initially on presentation but now back to close his baseline oxygen - Exact baseline is unclear as patient initially told the ED 2 L and then told me 4 L - Will need to verify on Monday with his DME supplier - Continue scheduled and as needed nebulizers - Continue IV Solu-Medrol - Continue I-S and add Pep therapy - Add Mucinex 1200 p.o. twice daily - Obtain sputum culture if able - COVID/flu/respiratory viral panel unremarkable - Procalcitonin is completely normal suspicion is low for bacterial etiology - Previous CT of the chest does show pretty marked emphysematous changes especially apically bilaterally Chronic normocytic anemia - Counts are stable - Monitor CKD stage II - Creatinine stable - Follow Generalized weakness/debility/failure to thrive - family is having difficulty taking care of him in the current living environment - Patient likely would benefit from ECF - PT/OT/case management following - Patient does have injuries from previous falls Osteoporosis -Restart alendronate at discharge -Cont home cholecalciferol Seizure disorder -Continue home carbamazepine CAD/essential hypertension/hyperlipidemia/history of stroke/PAD -Blood pressure is markedly elevated on presentation however it does not appear patient been compliant with his medications - Continue home nifedipine 90 mg daily - Continue home metoprolol 25 mg p.o. daily - Continue home losartan 100 mg daily - Continue home clonidine 0.1 mg p.o. twice daily - Continue as needed hydralazine History of atrial fibrillation - Continue beta-joel - Patient is not on anticoagulation due to falls BPH with obstruction -continue home Flomax -Continue home finasteride GERD -continue PPI Tobacco abuse - continue nicotine patch -Recommend cessation Alzheimer's type dementia -Suspect patient needs more supervision than the currently available home -Monitor for behavior abnormalities and sundowning -May need to consider adding low-dose risperidone if problematic Depression - Continue home sertraline DVT prophylaxis -Subcu Lovenox daily CODE STATUS - Full code Charges/Coding Visit Charges Inpatient E&M: 09088 Subs Hosp L2 12/14/24 1804 <Electronically signed by Lisha Talamantes DO> Cosigner Signature (if applicable): CC: ~ Signed [facility] Work Phone: [phone] History and physical note Author Shilpa Contreras [facility] Note Date/Time December 14, 2024 12:2 3am [facility] Medical Records Department [address] [place] [address] H&P Exam - Hospitalist 12/13/241948 MR#: [id number] Acct: [id number] Name: PEDRO PABLO SIERRA Rep #:[id number] : 1950 74 From: Shilpa Contreras MD PCP: Dr. Daija Morton MD Status:ADM I N Location: [facility] [id number] HPI - General General Date of Admission: 12/13/24 Date of Service: 12/13/24 Chief Complaint: Dyspnea, wheezing. HPI Narrative The patient is a 74 y/o M w/ PMHx: Former EtOH abuse, PAD s/p peripheral PCI, PAF reporting that he is on chronic Coumadin therapy, HTN, HLD, Chronic anemia/Fe deficiency anemia, COPD/Asthma w/ Chronic Hypoxic Respiratory Failure (2L NC), Seizure disorder, CKD stage III unclear subtype or GFR trending, GERD, BPH with obstructive pathology, Anxiety and depression, PJ, Tobacco use who presents to the [facility] ED on 12/13/2024 with history of worsening dyspnea over the last 40 hours with increasing fatigue, malaise, severe wheezing and tightness normally on 2 L oxygen supplementation however today visiting nurse presented and evaluated him with noted increased hypoxia prompting increase up to 4 L with complaint of cough occasionally productive with no fevers or chills prompting referral to the ED to be cautious. Workup in the ED included T90.3, heart rate 65, BP initially 226/90, respiratory rate 22, initially under percent on room air transiently requiring 3.5 L nasal cannula noted to be at 100% on room air, most recent repeat vitals T97.9 Temporal, heartrate 72, BP 185/72, respiratory rate 22, 98% on supplemental oxygen, CBC with WBC 5.9, hemoglobin 0.5, MCV 90.4, platelet 299 without marked shift, INR 0.9, BMP with glucose 102 otherwise unremarkable, BUN/creatinine 12/1.11, GFR 69, chest x-ray with persistent COPD type changes with no acute cardiopulmonary findings, rapid SARS COVID/influenza/RSV PCR negative. In the ED patient administered DuoNeb therapy and Solu-Medrol 125 mg IV x 1. Blood culture x 2 pending per ED. given appearance in the ED with increased work of breathing ongoing, significant tightness, wheezing and evidence of some respiratory distress component requested ABG and will trial BiPAP. [facility] Medical History Weakness Debility Failure to thrive Compression fx, lumbar spine Hypertension Falls Hypertension [...] 70 mg tablet 70 mg PO QWEEK OSTEOPROSIS # 1 TAB 11/30/21 03/28/23 Rx metoprolol tartrate 25 mg tablet 25 mg PO DAILY Blood pressure 03/30/23 03/28/23 History sennosides 8.6 mg-docusate sodium 2 tab PO BID PRN PRN Constipation 04/04/23 Unknown Rx 50 mg tablet (Stool #0 tabs Softener-Stimulant Laxative) albuterol sulfate 90 mcg/actuation 1 puff inhalation Q 8H SOB 08/22/23 Unknown History aerosol inhaler carbamazepine 200 mg 200 mg PO Q12H SEIZURES 11/09 Unknown History tablet,extended release,12 hr cholecalciferol (vitamin D3) 50 50 mcg PO DAILY SUPPLE MENT 08/22/23 Unknown History mcg (2,000 unit) tablet sertraline 100 mg tablet 100 mg PO DAILY DEPRESSION 0 08/22/23 Unknown History ergocalciferol (vitamin D2) 1,250 1,250 mcg PO Q7D SUP PLEMENT #0 caps 04/10/24 Unknown Rx mcg (50,000 unit) capsule (Vitamin D2) clonidine HCl 0.1 mg tablet 0.1 mg PO TID HTN #0 tabs 09/02/24 Unknown Rx dextromethorphan-guaifenesin ER 60 1 tab PO BID COUGH 7 days #14 tabs 09/02/24 Unknown Rx mg-1,200 mg tab,extend release,12hr nicotine 14 mg/24 hr daily 14 mg transdermal DAILY MARY OTINE 09/02/24 Unknown Rx transdermal patch 28 days #28 ea prednisone 20 mg tablet 40 mg (2 x 20 mg) PO BREAKFA ST 1 09/02/24 Unknown Rx day #2 tabs acetaminophen 500 mg tablet 1,000 mg PO Q8 PRN fever o r pain 12/13/24 Unknown History albuterol sulfate 2.5 mg/3 mL 2.5 mg continuous nebuli zation 12/13/24 12/13/24 History (0.083 %) solution for nebulization DAILY SHORTNESS OF BREATH clonidine 0.2 mg/24 hr weekly 1 patch topical QWEEK BL OOD 12/13/24 Unknown History transdermal patch PRESSURE gabapentin 100 mg capsule 100 mg PO DAILY PAIN 5 Unknown History Allergy/AdvReac Type Severity Reaction Status Date / Time No Known Allergies Allergy Verified 04/06/24 11:12 Family History (Updated 12/13/24 @ 20:[address] Shilpa Contreras MD) Mother Heart disease CVA (cerebral vascular accident) Hypertension Father Heart disease CVA (cerebral vascular accident) Hypertension Surgical History S/P arterial stent History of appendectomy Social History (Updated 12/13/24 @ 20:[address] 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 HEENT: Eyes: No visual loss, blurred vision, double vision or yellow sclerae. Ears, Nose, Throat: No hearing loss, sneezing, congestion, runny nose or sore throat. SKIN: No rash or itching, lesions, wounds except + occasional stage ecchymoses, abrasions. CARDIOVASCULAR: No chest pain, chest pressure or chest discomfort, palpitations,edema, orthopnea, syncopal events. RESPIRATORY: + Dyspnea, chest tightness, productive cough intermittently, wheezing. No hemoptysis. GASTROINTESTINAL: + Lack of appetite/anorexia. No nausea, vomiting or diarrhea,abdominal pain, melena, BRBPR. GENITOURINARY: No dysuria, frequency, urgency or retention. NEUROLOGICAL: + Seizure disorder. No headache, dizziness, syncope, paralysis, ataxia, numbness or tingling in the extremities, focal weakness, change in bowelor bladder control. MUSCULOSKELETAL: + muscle, back pain, joint pain or stiffness. HEMATOLOGIC: + Chronic anemia, easy bleeding/bruising. LYMPHATICS: No enlarged nodes. No history of splenectomy. PSYCHIATRIC: + History of anxiety and depression. ENDOCRINOLOGIC: No reports of sweating, cold or heat intolerance. No polyuria orpolydipsia. ALLERGIES: + History of asthma. Vital Signs Vital Signs Vital Signs: 12/13/24 17:46 12/13/24 17:49 12/13/24 18:10 Temperature 98.3 F Temperature Source Temporal Pulse Rate 65 Respiratory Rate 22 H Respiratory Effort Short of Breath Respiratory Depth Shallow Respiratory Pattern Tachypnea Blood Pressure 226/90 H Blood Pressure Mean 135 Pulse Ox 100 100 Oxygen Delivery Method Room Air Nasal Cannula Nasal Cannula Oxygen Flow Rate (L/min) 3 3.5 12/13/24 18:10 12/13/24 18:46 12/13/24 18:48 Temperature 97.8 F Temperature Source Temporal Pulse Rate 63 80 79 Respiratory Rate 24 H 27 H 30 H Respiratory Effort Respiratory Depth Respiratory Pattern Tachypnea Blood Pressure 212/84 H 212/84 H Blood Pressure Mean 126 126 Pulse Ox 100 99 Oxygen Delivery Method Nasal Cannula Room Air Oxygen Flow Rate (L/min) 12/13/24 19:00 Temperature 97.9 F Temperature Source Temporal Pulse Rate 72 Respiratory Rate 22 H Respiratory Effort Respiratory Depth Respiratory Pattern Blood Pressure 185/72 H Blood Pressure Mean 109 Pulse Ox 98 Oxygen Delivery Method Nasal Cannula Oxygen Flow Rate (L/min) Weight Weight: 160 lb 0.889 oz Body Mass Index (BMI) 24.3 Physical Exam Narrative Physical Examination: General: Awake, alert, oriented x 3 and cooperative, seated upright in ED bed, some conversational dyspnea noted, accessory muscle usage, evidence of respiratory distress. Skin: Normal color, normal turgor, no icterus, no cyanosis except occasional stage ecchymoses, abrasion. HEENT: AT/NC, EOMI with right pupil atypical size/shape, dry MM, no carotid bruits or JVD noted. Lungs: Severely diminished, tight, greater bases, soft end expiratory wheezing, increased work of breathing evident, accessory muscle usage evident, respiratorydistress evident, no obvious rhonchi or rales. Heart: Regular rate and rhythm; no gallop, rub audible. Abdomen: Soft, NTTP, ND, mildly distant normal BS, no appreciated HSM. Extremities: No cyanosis, no clubbing, no significant distal edema noted. Neurological: Patient awake, alert, oriented as noted, cognitive function intact; pupils equally reactive to light and accommodation, cranial nerves grossly normal with as noted right pupil atypical size/shape, moving all 4 extremities, no focal deficits, strength severely globally decreased secondary to acute presentation with respiratory distress per Psychiatric: Affect appears fatigued, evident respiratory distress as noted, no acute evidence of depressive or anxiety feelings but does have underlying history. Results Lab / Micro Data 12/13/24 18:26 12/13/24 18:26 Labs: Laboratory Results - last 24 hr 12/13/24 18:26: WBC 5.9, RBC 4.15 L, Hgb 11.5 L, Hct 37.5 L, MCV 90.4, MCH 27.7,MCHC 30.7 L, RDW Std Deviation 44.8 H, RDW Coeff of Aly 13.7, Plt Count 299, MPV9.7, Immature Gran % (Auto) 0.300, Neut % (Auto) 67.3, Lymph % (Auto) 19.5, Elliott% (Auto) 8.9, Eos % (Auto) 3.0, Baso % (Auto) 1.0, Absolute Neuts (auto) 4.0, Absolute Lymphs (auto) 1.16, Nucleated RBC % 0, PT 12.5, INR 0.9, Sodium 141, Potassium 3.7, Chloride 104, Carbon Dioxide 24.4, Anion Gap 13, BUN 12, Creatinine 1.11, Estim Creat Clear Calc 55.63, Est GFR (MDRD) Non-Af 69, BUN/Creatinine Ratio 11.0, Glucose 102 H, Calcium 9.7 Micro: Microbiology 12/13/24 18:26 Mucosa - Nose SARS-CoV-2, Influenza & RSV (PCR) - Final Imaging Radiology Impression Chest X-Ray 12/13/24 18:39 IMPRESSION: No significant change since last exam. Reading Location: [facility] Assessment & Plan Assessment/Plan (1) COPD exacerbation: PLAN: Plan The patient is a 74 y/o M w/ PMHx: Former EtOH abuse, PAD s/p peripheral PCI, PAF reporting that he is on chronic Coumadin therapy, HTN, HLD, Chronic anemia/Fe deficiency anemia, COPD/Asthma w/ Chronic Hypoxic Respiratory Failure (2L NC), Seizure disorder, CKD stage III unclear subtype or GFR trending, GERD, BPH with obstructive pathology, Anxiety and depression, PJ, Tobacco use who presents to the [facility] ED on 12/13/2024 with history of worsening dyspnea over the last 40 hours with increasing fatigue, malaise, severe wheezing and tightness normally on 2 L oxygen supplementation however today visiting nurse presented and evaluated him with noted increased hypoxia prompting increase up to 4 L with complaint of cough occasionally productive with no fevers or chills prompting referral to the ED to be cautious. #1. Acute on Chronic Hypoxic Respiratory Failure secondary to Acute on Chronic COPD/Asthma exacerbation: Will admit to PCU given planned BiPAP usage, will obtain ABG, once able to transition off BiPAP will wean oxygen as tolerated to home supplementation level previously noted at 2 L, will maintain on ATC duonebs, PRN albuterol, IV methylprednisolone, HOB, IS parameters, will obtain sputum Cx, respiratory viral panel, procalcitonin, will hold on immediately abx therapy but low threshold to add if appropriate. #2. Hypertension, uncontrolled suspected secondary to #1 possibly missing some of his medication on day of presentation: Continue home regimen including clonidine, losartan, metoprolol, nifedipine, PRN hydralazine. #3. Chronic Kidney Disease Stage II per GFR trending: Admission BUN/Cr 121.11,GFR 69, baseline renal function 1.1-1.2, repeat BMP in AM. #4. Chronic normocytic anemia/iron deficient anemia: Hemoglobin 0.5, MCV 90.4, baseline hemoglobin noted to vacillate however does range 11-12 but has previously also been in the 13-14 range, most recently 12/02/2024 hemoglobin 11.1, continue to trend. #5. PAF: Will continue patient home metoprolol regimen, noted that he is on Coumadin but clarified to be certain his INR is 0.9, we will continue to trend. #6. Hyperlipidemia: Will continue patient on statin therapy. #7. Anxiety and depression: Will continue patient home sertraline and mirtazapine home regimen #8. BPH with obstructive pathology: Will continue patient on Flomax and finasteride regimen, monitor for retention. #9. GERD: Will continue patient on PPI. #10. Seizure disorder: Continue home carbamazepine regimen. #11. Tobacco Abuse: Encouraged cessation, inpatient consultation per RT, NR if desired. #12. PJ: Noncompliant with PAP therapy, ABG requested, trialing BIPAP as noted. #13. PAD: Will continue patient's Plavix, statin, hypertensive regimen as noted, clarifying is he stating that he is on Coumadin but his INR is subtherapeutic. #14. Former alcohol abuse: Encourage continued sobriety. #15. DVT prophylaxis: Will continue Coumadin with INR trending however suspect patient has been noncompliant as INR upon presentation is 0.9. #16. CODE status: Patient healthcare power admitted attorneys and living will are not in place but he notes he would want his ex- Joseph to be his medical decision-maker if absolutely necessary. Discussed CODE status at length including difference between FULL code, DNR-CCA and DNR-CC status. Following discussions about the differences in these status, requested Full Code status. [facility] Face to Face Time: 16 minutes. Charges/Coding Visit Charges Inpatient E&M: 16704 Init Hosp L3 Procedures Hospitalists Procedures: 03805 Advncd Care Plan 30 Min 12/13/242049 <Electronically signed by Shilpa Contreras MD> Cosigner Signature (if applicable): CC: Dr. Shilpa Contreras MD; Dr. Daija Morton MD~ Signed ADDENDUM by Dr. Shilpa Contreras MD on 12/14/24 at 0023 Addendum Staff able to confirm that HE DOES NOT TAKE coumadin despite stating he does, will maintain on lovenox chemoprophylaxis. 12/14/24 0023<Electronically signed by Shilpa Contreras MD> Cosigner Signature (if applicable): cc: Dr. Shilpa Contreras MD; Dr. Daija Morton MD ~* Signed [facility] Work Phone: [phone] Discharge summary Author [facility]is [facility] Note Date/Time December 13, 2024 10:4 1pm [facility] Medical Records Department [address] [place] [address] Emergency Department Summary 12/13/24 MR#: [id number] Acct: [id number] Name: PEDRO PABLO SIERRA Rep #:[id number] : 1950 74 From: Charis Walker DO PCP: Dr. Daija Morton MD Status:ADM I N Location: [place] [address] HPI History of Present Illness Chief Complaint: Shortness of Breath Detail of Chief Complaint: Shortness of breath Informant: patient Narrative Narrative: Patient presents with shortness of breath has been somewhat chronic but worse today. Daughter states that he has been pretty noncompliant with his breathing treatments and nebulizer. Patient has history of COPD and gets frequent exacerbations. Normally is on 2 L of O2 and the visiting nurse today put him on4 L. Complains of a cough with productive sputum. He denies fevers. Denies chest pain. Patient has history of A-fib and is currently on Coumadin. Recently returned home from being in a long term for a time 1 week ago. [facility] Medical History Compression fx, lumbar spine [...] DAILY Unknown History mcg (2,000 unit) tablet guaifenesin 100 mg/5 mL oral liquid 200 mg PO Q4H PRN congestion 08/22/23 Unknown History sertraline 100 mg tablet 100 mg PO DAILY 08/22/23 Unk nown History ergocalciferol (vitamin D2) 1,250 1,250 mcg PO Q7D #0 caps 04/10/24 Unknown Rx mcg (50,000 unit) capsule (Vitamin D2) clonidine HCl 0.1 mg tablet 0.1 mg PO TID #0 tabs 08/17 01/10 Unknown Rx dextromethorphan-guaifenesin ER 60 1 tab PO BID 7 days #14 tabs 09/02/24 Unknown Rx mg-1,200 mg tab,extend release,12hr nicotine 14 mg/24 hr daily 14 mg transdermal DAILY 28 days 09/02/24 Unknown Rx transdermal patch #28 ea prednisone 20 mg tablet 40 mg (2 x 20 mg) PO BREAKFA ST 1 09/02/24 Unknown Rx day #2 tabs Allergy/AdvReac Type Severity Reaction Status Date / [...] Number of servings: 3 ROS ROS ED Review of Systems ROS Unobtainable: other Constitutional Constitutional ED: Reports lethargy; Denies chills, fever(s), sweats or weight loss Eyes Eyes: Denies blurry vision, change in vision or diplopia ENT ENT ED: Denies rhinorrhea or sore throat Cardiovascular Cardiovascular: Denies chest pain, orthopnea or racing heartbeat Respiratory/Chest Respiratory/Chest: Reports cough, dyspnea, dyspnea on exertion and sputum; Denies orthopnea Gastrointestinal Gastrointestinal: Denies abdominal pain, diarrhea, nausea or vomiting Genitourinary Genitourinary ED: Denies dysuria, hematuria or urinary frequency Musculoskeletal Musculoskeletal: Denies arthralgias, back pain, myalgias or neck pain Integumentary Denies abscess, Abrasions or rash Neurologic Neurologic: Denies headache(s) or weakness Psychiatric Psychiatric: Denies anxiety, depression or suicidal thoughts Endocrine Endocrinology: Denies polydipsia, polyphagia or polyuria Hematologic/Lymphatic Hematologic/Lymphatic: Denies easy bleeding, easy bruising or lymphadenopathy Allergic/Immunologic Allergic/Immunologic ED: Denies mouth swelling, tongue swelling or urticaria EXAM Physical Exam Const Vital Signs: 12/13/24 17:46 12/13/24 17:49 12/13/24 18:10 Temperature 98.3 F Temperature Source Temporal Pulse Rate 65 Respiratory Rate 22 H Respiratory Effort Short of Breath Respiratory Depth Shallow Respiratory Pattern Tachypnea Blood Pressure 226/90 H Blood Pressure Mean 135 Pulse Ox 100 100 Oxygen Delivery Method Room Air Nasal Cannula Nasal Cannula Oxygen Flow Rate (L/min) 3 3.5 12/13/24 18:10 12/13/24 18:46 12/13/24 18:48 Temperature 97.8 F Temperature Source Temporal Pulse Rate 63 80 79 Respiratory Rate 24 H 27 H 30 H Respiratory Effort Respiratory Depth Respiratory Pattern Tachypnea Blood Pressure 212/84 H 212/84 H Blood Pressure Mean 126 126 Pulse Ox 100 99 Oxygen Delivery Method Nasal Cannula Room Air Oxygen Flow Rate (L/min) 12/13/24 19:00 Temperature 97.9 F Temperature Source Temporal Pulse Rate 72 Respiratory Rate 22 H Respiratory Effort Respiratory Depth Respiratory Pattern Blood Pressure 185/72 H Blood Pressure Mean 109 Pulse Ox 98 Oxygen Delivery Method Nasal Cannula Oxygen Flow Rate (L/min) Positive well nourished and well developed General Appearance ED: well developed and NAD HEENT Reports TM's clear and moist mucous membranes normocephalic and atraumatic; Negative for trauma or tenderness Tympanic Membrane ED: Yes TM's clear Eyes PERRL and EOMs intact bilaterally General Eye ED: Negative for pale conjunctiva or scleral icterus Neck no lymphadenopathy, supple and no JVD General: Negative for tenderness Chest Wall inspection of chest normal and palpation of chest normal Chest: Negative for tenderness Resp No normal respiratory effort and No clear to auscultation bilaterally Resp Narrative: Mild tachypnea with expiratory wheezes throughout. Somewhat diminished breath sounds bilaterally. No accessory muscle use or retractions. Effort and Inspection: Negative for respiratory distress or pain with movement Auscultation: wheezes; Negative for rhonchi or diminished lung sounds Cardio regular rate, regular rhythm, S1 normal heart sound, S2 normal heart sound and no murmurs Peripheral Pulses: pulses 2+ throughout GI normal to inspection, nondistended, normoactive bowel sounds, soft to palpation,non-tender, non-distended and no masses Back/Spine no CVA tenderness and no thoracic nor lumbar tenderness Extremity normal to inspection General Extremety ED: Negative for edema General Extremity: Negative for edema Neuro oriented x3, CN's II-XII intact bilaterally, no sensory deficits noted and gait normal Sensorium / Orientation: awake, alert, oriented to person, oriented to place andoriented to time Motor Exam: strength 5/5 throughout and strength abnormal Psych mental status grossly normal Skin no rashes or lesions noted and no wounds MDM MDM MDM Narrative Medical decision making narrative: Patient presents with increased dyspnea. History of COPD normally on 2 L and today was bumped up to 4 L by visiting nurse. Per daughter is not always compliant with his medications and oxygen. He denies any chest pain. EKG obtained arrival shows sinus rhythm with regular rate of 67 bpm with first-degree AV block. CBC with differential shows a white count 5.9 with hemoglobin 11.5 and platelet count 299. Chemistries unremarkable. 1 view chest x-ray obtained was unremarkable. Lab Data Attestation: I reviewed the patient's lab results. Labs: Laboratory Results - last 24 hr 12/13/24 18:26 WBC 5.9 RBC 4.15 L Hgb 11.5 L Hct 37.5 L MCV 90.4 MCH 27.7 MCHC 30.7 L RDW Std Deviation 44.8 H RDW Coeff of Aly 13.7 Plt Count 299 MPV 9.7 Immature Gran % (Auto) 0.300 Neut % (Auto) 67.3 Lymph % (Auto) 19.5 Elliott % (Auto) 8.9 Eos % (Auto) 3.0 Baso % (Auto) 1.0 Absolute Neuts (auto) 4.0 Absolute Lymphs (auto) 1.16 Nucleated RBC % 0 PT 12.5 INR 0.9 Sodium 141 Potassium 3.7 Chloride 104 Carbon Dioxide 24.4 Anion Gap 13 BUN 12 Creatinine 1.11 Estim Creat Clear Calc 55.63 Est GFR (MDRD) Non-Af 69 BUN/Creatinine Ratio 11.0 Glucose 102 H Calcium 9.7 Radiography Diagnostic Testing: Clinical Impression(s) from Imaging Studies Chest X-Ray 12/13/24 18:39 IMPRESSION: No significant change since last exam. Reading Location: [facility] 1 view chest x-ray obtained interpreted by myself as no evidence of infiltrate or pneumothorax or acute disease process. Radiology in agreement. EKG Initial EKG: Attestation: I personally reviewed and interpreted this EKG as follows: Comments: Sinus rhythm with ventricular rate of 67 bpm with first-degree AV block Discharge Plan Triage Chief Complaint: Shortness of Breath ED Provider: Charis Walker Dx/Rx/DC Orders Clinical Impression: COPD exacerbation, Dyspnea, Hypertension Prescriptions: No Action albuterol sulfate 90 mcg/actuation HFA aerosol inhaler [...] 1,250 mcg PO Q7D Qty: 0 0RF clonidine HCl 0.1 mg Tablet 0.1 mg [...] Instructions: For 1 more day tomorrow 09/03/2024 Primary Care Provider: Daija Morton Referrals: Daija Morton MD [Primary Care Provider] - Print Language: [place] Citizen Disposition Disposition: Acute Care Hospital [facility] What to do if you have Problems For any increased pain, shortness of breath, bleeding, nausea or vomiting, chestpain, or any unexpected problems, contact your Primary Care Provider. Call [facility] ([phone]) or report to the closest Emergency Room. Call 911 if necessary. 12/13/242240 <Electronically signed by Charis Walker DO> Cosigner Signature (if applicable): CC: Dr. Daija Morton MD ~ Signed [facility] Work Phone: [phone] History and physical note [facility] Medical Records Department [address] [place] [address] H&P Exam - Hospitalist 12/13/241948 MR#: [id number] Acct: [id number] Name: PEDRO PABLO SIERRA Rep #:[id number] : 1950 74 From: Shilpa Contreras MD PCP: Dr. Daija Morton MD Status:ADM I N Location: [place] [address] HPI - General General Date of Admission: 12/13/24 Date of Service: 12/13/24 Chief Complaint: Dyspnea, wheezing. HPI Narrative The patient is a 74 y/o M w/ PMHx: Former EtOH abuse, PAD s/p peripheral PCI, PAF reporting that heis on chronic Coumadin therapy, HTN, HLD, Chronic anemia/Fe deficiency anemia, COPD/Asthma w/ Chronic Hypoxic Respiratory Failure (2L NC), Seizure disorder, CKD stage III unclear subtype or GFR trending, GERD, BPH with obstructive pathology, Anxiety and depression, PJ, Tobacco use who presents to the [facility] ED on 12/13/2024 with history of worsening dyspnea over the last 40 hours with increasing fatigue, malaise, severe wheezing and tightness normally on 2 L oxygen supplementation however today visiting nurse presented and evaluated him with noted increased hypoxia prompting increase up to 4 L with complaint of cough occasionally productive with no fevers or chills prompting referral to the ED to be cautious. Workup in the ED included T90.3, heart rate 65, BP gspnffppa388/90, respiratory rate 22, initially under percent on room air transiently requiring 3.5 L nasal cannula noted to be at 100% on room air, most recent repeat vitals T97.9 Temporal, heartrate 72, BP 185/72, respiratory rate 22, 98% on supplemental oxygen, CBC with WBC 5.9, hemoglobin 0.5, MCV 90.4,platelet 299 without marked shift, INR 0.9, BMP with glucose 102 otherwise unremarkable, BUN/creatinine 12/1.11, GFR 69, chest x-ray with persistent COPD type changes with no acute cardiopulmonary findings, rapid SARS COVID/influenza/RSV PCR negative. In the ED patient administered DuoNeb therapy and Solu-Medrol 125 mg IV x 1. Blood culture x 2 pending per ED. given appearance in the ED with increased work of breathing ongoing, significant tightness, wheezing and evidence of some respiratory distress component requested ABG and will trial BiPAP. [facility] Medical History Weakness Debility Failure to thrive Compression fx, lumbar spine Hypertension Falls Hypertension [...] 70 mg tablet 70 mg PO QWEEK OSTEOPROSIS # 1 TAB 11/30/21 03/28/23 Rx metoprolol tartrate 25 mg tablet 25 mg PO DAILY Blood pressure 03/30/23 03/28/23 History sennosides 8.6 mg-docusate sodium 2 tab PO BID PRN PRN Constipation 04/04/23 Unknown Rx 50 mg tablet (Stool #0 tabs Softener-Stimulant Laxative) albuterol sulfate 90 mcg/actuation 1 puff inhalation Q 8H SOB 08/22/23 Unknown History aerosol inhaler carbamazepine 200 mg 200 mg PO Q12H SEIZURES 11/09 Unknown History tablet,extended release,12 hr cholecalciferol (vitamin D3) 50 50 mcg PO DAILY SUPPLE MENT 08/22/23 Unknown History mcg (2,000 unit) tablet sertraline 100 mg tablet 100 mg PO DAILY DEPRESSION 0 08/22/23 Unknown History ergocalciferol (vitamin D2) 1,250 1,250 mcg PO Q7D SUP PLEMENT #0 caps 04/10/24 Unknown Rx mcg (50,000 unit) capsule (Vitamin D2) clonidine HCl 0.1 mg tablet 0.1 mg PO TID HTN #0 tabs 09/02/24 Unknown Rx dextromethorphan-guaifenesin ER 60 1 tab PO BID COUGH 7 days #14 tabs 09/02/24 Unknown Rx mg-1,200 mg tab,extend release,12hr nicotine 14 mg/24 hr daily 14 mg transdermal DAILY MARY OTINE 09/02/24 Unknown Rx transdermal patch 28 days #28 ea prednisone 20 mg tablet 40 mg (2 x 20 mg) PO BREAKFA ST 1 09/02/24 Unknown Rx day #2 tabs acetaminophen 500 mg tablet 1,000 mg PO Q8 PRN fever o r pain 12/13/24 Unknown History albuterol sulfate 2.5 mg/3 mL 2.5 mg continuous nebuli zation 12/13/24 12/13/24 History (0.083 %) solution for nebulization DAILY SHORTNESS OF BREATH clonidine 0.2 mg/24 hr weekly 1 patch topical QWEEK BL OOD 12/13/24 Unknown History transdermal patch PRESSURE gabapentin 100 mg capsule 100 mg PO DAILY PAIN 5 Unknown History Allergy/AdvReac Type Severity Reaction Status Date / Time No Known Allergies Allergy Verified 04/06/24 11:12 Family History (Updated 12/13/24 @ 20:[address] Shilpa Contreras MD) Mother Heart disease CVA (cerebral vascular accident) Hypertension Father Heart disease CVA (cerebral vascular accident) Hypertension Surgical History S/P arterial stent History of appendectomy Social History (Updated 12/13/24 @ 20:[address] 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 HEENT: Eyes: No visual loss, blurred vision, double vision or yellow sclerae. Ears, Nose, Throat: No hearing loss, sneezing, congestion, runny nose or sore throat. SKIN: No rash or itching, lesions, wounds except + occasional stage ecchymoses, abrasions. CARDIOVASCULAR: No chest pain, chest pressure or chest discomfort, palpitations,edema, orthopnea, syncopal events. RESPIRATORY: + Dyspnea, chest tightness, productive cough intermittently, wheezing. No hemoptysis. GASTROINTESTINAL: + Lack of appetite/anorexia. No nausea, vomiting or diarrhea,abdominal pain, melena, BRBPR. GENITOURINARY: No dysuria, frequency, urgency or retention. NEUROLOGICAL: + Seizure disorder. No headache, dizziness, syncope, paralysis, ataxia, numbness or tingling in the extremities, focal weakness, change in bowelor bladder control. MUSCULOSKELETAL: + muscle, back pain, joint pain or stiffness. HEMATOLOGIC: + Chronic anemia, easy bleeding/bruising. LYMPHATICS: No enlarged nodes. No history of splenectomy. PSYCHIATRIC: + History of anxiety and depression. ENDOCRINOLOGIC: No reports of sweating, cold or heat intolerance. No polyuria orpolydipsia. ALLERGIES: + History of asthma. Vital Signs Vital Signs Vital Signs: 12/13/24 17:46 12/13/24 17:49 12/13/24 18:10 Temperature 98.3 F Temperature Source Temporal Pulse Rate 65 Respiratory Rate 22 H Respiratory Effort Short of Breath Respiratory Depth Shallow Respiratory Pattern Tachypnea Blood Pressure 226/90 H Blood Pressure Mean 135 Pulse Ox 100 100 Oxygen Delivery Method Room Air Nasal Cannula Nasal Cannula Oxygen Flow Rate (L/min) 3 3.5 12/13/24 18:10 12/13/24 18:46 12/13/24 18:48 Temperature 97.8 F Temperature Source Temporal Pulse Rate 63 80 79 Respiratory Rate 24 H 27 H 30 H Respiratory Effort Respiratory Depth Respiratory Pattern Tachypnea Blood Pressure 212/84 H 212/84 H Blood Pressure Mean 126 126 Pulse Ox 100 99 Oxygen Delivery Method Nasal Cannula Room Air Oxygen Flow Rate (L/min) 12/13/24 19:00 Temperature 97.9 F Temperature Source Temporal Pulse Rate 72 Respiratory Rate 22 H Respiratory Effort Respiratory Depth Respiratory Pattern Blood Pressure 185/72 H Blood Pressure Mean 109 Pulse Ox 98 Oxygen Delivery Method Nasal Cannula Oxygen Flow Rate (L/min) Weight Weight: 160 lb 0.889 oz Body Mass Index (BMI) 24.3 Physical Exam Narrative Physical Examination: General: Awake, alert, oriented x 3 and cooperative, seated upright in ED bed, some conversational dyspnea noted, accessory muscle usage, evidence of respiratory distress. Skin: Normal color, normal turgor, no icterus, no cyanosis except occasional stage ecchymoses, abrasion. HEENT: AT/NC, EOMI with right pupil atypical size/shape, dry MM, no carotid bruits or JVD noted. Lungs: Severely diminished, tight, greater bases, soft end expiratory wheezing, increased work of breathing evident, accessory muscle usage evident, respiratorydistress evident, no obvious rhonchi orrales. Heart: Regular rate and rhythm; no gallop, rub audible. Abdomen: Soft, NTTP, ND, mildly distant normal BS, no appreciated HSM. Extremities: No cyanosis, no clubbing, no significant distal edema noted. Neurological: Patient awake, alert, oriented as noted, cognitive function intact; pupils equally reactive to light and accommodation, cranial nerves grossly normal with as noted right pupil atypical size/shape, moving all 4 extremities, no focal deficits, strength severely globally decreased secondary to acute presentation with respiratory distress per Psychiatric: Affect appears fatigued, evident respiratory distress as noted, no acute evidence of depressive or anxiety feelings but does have underlying history. Results Lab / Micro Data 12/13/24 18:26 12/13/24 18:26 Labs: Laboratory Results - last 24 hr 12/13/24 18:26: WBC 5.9, RBC 4.15 L, Hgb 11.5 L, Hct 37.5 L, MCV 90.4, MCH 27.7,MCHC 30.7 L, RDW Std Deviation 44.8 H, RDW Coeff of Aly 13.7, Plt Count 299, MPV9.7, Immature Gran % (Auto) 0.300, Neut% (Auto) 67.3, Lymph % (Auto) 19.5, Elliott% (Auto) 8.9, Eos % (Auto) 3.0, Baso % (Auto) 1.0, AbsoluteNeuts (auto) 4.0, Absolute Lymphs (auto) 1.16, Nucleated RBC % 0, PT 12.5, INR 0.9, Sodium 141, Potassium 3.7, Chloride 104, Carbon Dioxide 24.4, Anion Gap 13, BUN 12, Creatinine 1.11, Estim Creat Clear Calc 55.63, Est GFR (MDRD) Non-Af 69, BUN/Creatinine Ratio 11.0, Glucose 102 H, Calcium 9.7 Micro: Microbiology 12/13/24 18:26 Mucosa - Nose SARS-CoV-2, Influenza & RSV (PCR) - Final Imaging Radiology Impression Chest X-Ray 12/13/24 18:39 IMPRESSION: No significant change since last exam. Reading Location: [id number] Assessment & Plan Assessment/Plan (1) COPD exacerbation: PLAN: Plan The patient is a 74 y/o M w/ PMHx: Former EtOH abuse, PAD s/p peripheral PCI, PAF reporting that heis on chronic Coumadin therapy, HTN, HLD, Chronic anemia/Fe deficiency anemia, COPD/Asthma w/ Chronic Hypoxic Respiratory Failure (2L NC), Seizure disorder, CKD stage III unclear subtype or GFR trending, GERD, BPH with obstructive pathology, Anxiety and depression, PJ, Tobacco use who presents to the [facility] ED on 12/13/2024 with history of worsening dyspnea over the last 40 hours with increasing fatigue, malaise, severe wheezing and tightness normally on 2 L oxygen supplementation however today visiting nurse presented and evaluated him with noted increased hypoxia prompting increase up to 4 L with complaint of cough occasionally productive with no fevers or chills prompting referral to the ED to be cautious. #1. Acute on Chronic Hypoxic Respiratory Failure secondary to Acute on Chronic COPD/Asthma exacerbation: Will admit to PCU given planned BiPAP usage, will obtain ABG, once able to transition off BiPAP will wean oxygen as tolerated to home supplementation level previously noted at 2 L, will maintainon ATC duonebs, PRN albuterol, IV methylprednisolone, HOB, IS parameters, will obtain sputum Cx, respiratory viral panel, procalcitonin, will hold on immediately abx therapy but low threshold to add if appropriate. #2. Hypertension, uncontrolled suspected secondary to #1 possibly missing some of his medication onday of presentation: Continue home regimen including clonidine, losartan, metoprolol, nifedipine, PRN hydralazine. #3. Chronic Kidney Disease Stage II per GFR trending: Admission BUN/Cr 05/19.11,GFR 69, baseline renal function 1.1-1.2, repeat BMP in AM. #4. Chronic normocytic anemia/iron deficient anemia: Hemoglobin 0.5, MCV 90.4, baseline hemoglobin noted to vacillate however does range 11-12 but has previously also been in the 13-14 range, most recently 12/02/2024 hemoglobin 11.1, continue to trend. #5. PAF: Will continue patient home metoprolol regimen, noted that he is on Coumadin but clarified to be certain his INR is 0.9, we will continue to trend. #6. Hyperlipidemia: Will continue patient on statin therapy. #7. Anxiety and depression: Will continue patient home sertraline and mirtazapine home regimen #8. BPH with obstructive pathology: Will continue patient on Flomax and finasteride regimen, monitor for retention. #9. GERD: Will continue patient on PPI. #10. Seizure disorder: Continue home carbamazepine regimen. #11. Tobacco Abuse: Encouraged cessation, inpatient consultation per RT, NR if desired. #12. PJ: Noncompliant with PAP therapy, ABG requested, trialing BIPAP as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 08/31/24 1230 Cosigner Signature (if applicable): CC: ~ Signed [facility]03-14-2025 Consult note Author Elton Moore [facility] Note Date/Time August 30, 2024 1:4 6pm [facility] Medical Records Department [address] [place] [address] Consultation - Infectious Dx 08/30/24 1343 MR#: [id number] Acct: [id number] Name: PEDRO PABLO SIERRA Rep #:[id number] : 1950 74 From: Elton pierce MD PCP: Dr. Daija Morton MD Status:ADM I N [facility] Assessment & Plan Assessment/Plan (1) Weakness: (2) [...] performed and neg except as noted above. [facility] Medical History Compression fx, lumbar spine Hypertension [...] 90 mcg/actuation 1 puff inhalation Q 8H 03/05/24 Unknown History aerosol inhaler carbamazepine 200 mg [...] (Auto) 64.8, Lymph % (Auto) 17.8 L, Elliott % (Auto) 7.6, Eos % (Auto) 7.8 [...] applicable): CC: Dr. Daija Morton MD~ Signed [facility] Work Phone: 1(455) 689-195503-14-2025 Consult note [facility] Medical Records Department [address] [place] [address] Consultation - Infectious Dx 08/30/24 1343 MR#: [id number] Acct: [id number] Name: PEDRO PABLO SIERRA Rep #:[id number] : 1950 74 From: Elton pierce MD PCP: Dr. Daija Morton MD Status:ADM I N Location: [place] [address]-1 Assessment & Plan Assessment/Plan (1) Weakness: (2) [...] performed and neg except as noted above. [facility] Medical History Compression fx, lumbar spine Hypertension [...] %(Auto) 64.8, Lymph % (Auto) 17.8 L, Elliott % (Auto) 7.6, Eos % (Auto) 7.8 [...] applicable): CC: Dr. Daija Morton MD~ Signed [facility]03-14-2025 Progress note Author Celia Toribio [facility] Note Date/Time August 30, 2024 11: 11am [facility] Medical Records Department [address] [place] [address] Progress Note - Hospitalist 08/30/24 0709 MR#: [id number] Acct: [id number] Name: PEDRO PABLO SIERRA Rep #:[id number] : 1950 74 From: Celia Toribio MD PCP: Dr. Daija Morton MD Status:ADM I N Location: [place] VM147-8 Reason for Visit Reason for Visit: Diagnoses [...] (Auto) 64.8, Lymph % (Auto) 17.8 L, Elliott % (Auto) 7.6, Eos % (Auto) 7.8 [...] to thrive -Patient recently had been at [facility] and was discharged 08/20/2024 buthas been having diarrhea since that time -May be due to diarrhea but cannot say definitively, checking UA -PT/OT -08/27: UA ordered, yet to be collected, will follow-up, continue to work with physical therapy, case management social work following -08/28: Patient now agreeable to placement, placement avenues been pursued -08/29: Patient pending acceptance and pre-CERT for [facility], patient stable and willbe cleared for discharge once antibiotic and DC plan in place -08/30: Awaiting [facility] and [facility] determinations about payee so that patient can be placed at [facility], further dispo pending this # Urinary [...] documentation, 36minutes Charges/Coding Visit Charges Inpatient E&M: 97844 Subs Hosp L2 08/30/24 1111 <Electronically signed by Celia Toribio MD> Cosigner Signature (if applicable): CC: ~ Signed [facility] Work Phone: 1([phone]) 168-547503-14-2025 Progress note [facility] Medical Records Department [address] [place] [address] Progress Note - Hospitalist 08/30/24 0709 MR#: [id number] Acct: [id number] Name: PEDRO PABLO SIERRA Rep #:[id number] : 1950 74 From: Celia Toribio MD PCP: Dr. Daija Morton MD Status:ADM I N Location: [place] [address] Reason for Visit Reason for Visit: Diagnoses [...] %(Auto) 64.8, Lymph % (Auto) 17.8 L, Elliott % (Auto) 7.6, Eos % (Auto) 7.8 [...] to thrive -Patient recently had been at [facility] and was discharged 08/20/2024 buthas been [...] and DC plan in place -08/30: Awaiting [facility] and [facility] determinations about payee so that [facility] be [facility]at [facility] [facility]po pending this # Urinary [...] documentation, 36minutes Charges/Coding Visit Charges Inpatient E&M: 70512 Subs Hosp L2 08/30/24 1111 Cosigner Signature (if applicable): CC: ~ Signed [facility]03-13-2025 Progress note Author Celia Toribio [facility] Note Date/Time August 29, 2024 5:2 5pm [facility] Medical Records Department [address] [place] [address] Progress Note - Hospitalist 08/29/24 0805 MR#: [id number] Acct: [id number] Name: PEDRO PABLO SIERRA Shannan Rep #:[id number] : 1950 74 From: Celia Toribio MD PCP: Dr. Daija Morton MD Status:ADM I N Location: [place] [address] Reason for Visit Reason for Visit: Diagnoses [...] % (Auto) 59.8, Lymph % (Auto) 22.3, Elliott % (Auto) 8.0, Eos % (Auto) 8.2 [...] to thrive -Patient recently had been at [facility] and was discharged 08/20/2024 buthas been [...] documentation, 35minutes Charges/Coding Visit Charges Inpatient E&M: 61827 Subs Hosp L2 08/29/24 1725 <Electronically signed by Celia Toribio MD> Cosigner Signature (if applicable): CC: ~ Signed [facility] Work Phone: 1(840) 210-287403-13-2025 Progress note [facility] Medical Records Department [address] [place] [address] Progress Note - Hospitalist 08/29/24 0805 MR#: [id number] Acct: [id number] Name: PEDRO PABLO SIERRA Rep #:[id number] : 1950 74 From: Celia Toribio MD PCP: Dr. Daija Morton MD Status:ADM I N Location: [place] KZ390-2 Reason for Visit Reason for Visit: Diagnoses [...] H 92 Room Air 2 08/29/24 04:08/29/24 04:25 08/29/24 04:25 08/29/24 04:25 08/29/24 04:25 08/29/24 04:08/28/24 21:01 Oxygen Flow Rate (L/min) 2 [...] % (Auto) 59.8, Lymph % (Auto) 22.3, Elliott % (Auto) 8.0, Eos % (Auto) 8.2 [...] to thrive -Patient recently had been at [facility] and was discharged 08/20/2024 buthas been [...] bowel movement earliertoday, diarrhea resolved #DVT ppx: Philippe Toribio MD Time spent in the patient's overall evaluation,decision-making process, review of diagnostic data, adjustment of management, discussion with other providers, nursing nursing and ancillary staff involved in patient's care documentation, 35minutes Charges/Coding Visit Charges Inpatient E&M: 75506 Subs Hosp L2 08/29/24 1725 Cosigner Signature (if applicable): CC: ~ Signed [facility]03-12-2025 Progress note Author Celia Toribio [facility] Note Date/Time August 28, 2024 3:0 4pm [facility] Medical Records Department [address] [place] [address] Progress Note - Hospitalist 08/28/24 1252 MR#: [id number] Acct: [id number] Name: PEDRO PABLO SIERRA Rep #:[id number] : 1950 74 From: Celia Toribio MD PCP: Dr. Daija Morton MD Status:ADM I N Location: [place] [address] Reason for Visit Reason for Visit: Diagnoses [...] % (Auto) 55.6, Lymph % (Auto) 23.4, Elliott % (Auto) 11.3 H, Eos % (Auto) [...] to thrive -Patient recently had been at [facility] and was discharged 08/20/2024 buthas been [...] documentation, 35minutes Charges/Coding Visit Charges Inpatient E&M: 80045 Subs Hosp L2 08/28/24 1504 <Electronically signed by Celia Toribio MD> Cosigner Signature (if applicable): CC: ~ Signed [facility] Work Phone: 1([phone]) 194-391503-12-2025 Progress note [facility] Medical Records Department [address] [place] [address] Progress Note - Hospitalist 08/28/24 4773 MR#: [id number] Acct: [id number] Name: PEDRO PABLO SIERRA Rep #:[id number] : 1950 74 From: Celia Toribio MD PCP: Dr. Daija Morton MD Status:ADM I N Location: [place] DN915-2 Reason for Visit Reason for Visit: Diagnoses [...] % (Auto) 55.6, Lymph % (Auto) 23.4, Elliott % (Auto) 11.3 H, Eos % (Auto) [...] to thrive -Patient recently had been at [facility] and was discharged 08/20/2024 buthas been [...] documentation, 35minutes Charges/Coding Visit Charges Inpatient E&M: 64883 Subs Hosp L2 08/28/24 1504 Cosigner Signature (if applicable): CC: ~ Signed [facility]03-11-2025 Evaluation note* Diagnosis Onset Date Resolution Status Admit Date Acute diarrhea acute August 6:22pm Debility acute August 27 6:22pm Weakness acute August 27 6:22pm 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 August 172024 6:22pm [facility] Work Phone: [phone] 358-221903-11-2025 Evaluation note* Diagnosis Onset Date Resolution Status Admit Date Acute diarrhea resolved August 6:22pm Debility inactive August 27 6:22pm Failure to thrive inactive August 172024 6:22pm Weakness inactive August 27 6:22pm [facility] Work Phone: 1(866) 210-513803-11-2025 Evaluation note* Diagnosis Onset Date Resolution Status Admit Date Acute diarrhea resolved August 6:22pm Debility inactive August 27 6:22pm Failure to thrive inactive August 172024 6:22pm Weakness inactive August 27 6:22pm COPD exacerbation chronic December 132024 8:07pm [facility] Work Phone: 1(441) 334-703003-11-2025 Evaluation note* Diagnosis Onset Date Resolution Status Admit Date Acute diarrhea resolved August 6:22pm Debility inactive August 27 6:22pm Failure to thrive inactive August 172024 6:22pm Weakness inactive August 27 6:22pm Acute on chronic respiratory failure with hypoxia and hypercapnia chronic December 13, 2024 8:07pm COPD exacerbation chronic December 132024 8:07pm [facility] Work Phone: 1([phone]) 963-127203-11-2025 Evaluation note* Diagnosis Onset Date Resolution Status Admit Date Acute diarrhea resolved August 6:22pm Debility inactive August 27 6:22pm Failure to thrive inactive August 172024 6:22pm Weakness inactive August 27 6:22pm Acute on chronic respiratory failure with hypoxia and hypercapnia chronic December 13, 2024 8:07pm COPD exacerbation chronic December 132024 8:07pm Aphasia acute December 17, 2024 5:51pm Facial droop acute December 17 5:51pm Acute on chronic respiratory failure with hypoxia and hypercapnia chronic December 17, 2024 5 :51pm COPD exacerbation chronic December 5:51pm Hypertension chronic December 17 5:51pm [facility] Work Phone: 1(761) 905-488803-11-2025 Progress note Author Celia Toribio [facility] Note Date/Time August 27, 2024 4:1 3pm [facility] Medical Records Department [address] [place] [address] Progress Note - Hospitalist 08/27/24 1613 MR#: [id number] Acct: [id number] Name: MARIELAPEDRO PABLO CASTANEDA R Rep #:[id number] : 1950 74 From: Celia Toribio MD PCP: Dr. Daija Morton MD Status:ADM I NO Location: [place] ZM255-4 Hospitalist Note Repeat hemoglobin actually improved, suspect that this was then margin of bladder, will DC FOBT 08/27/24 161 <Electronically signed by Celia Toribio MD> Cosigner Signature (if applicable): CC: ~ Signed [facility] Work Phone: 1([phone]) 716-737503-11-2025 Progress note [facility] Medical Records Department [address] [place] [address] Progress Note - Hospitalist 08/27/24 1613 MR#: [id number] Acct: [id number] Name: PEDRO PABLO SIERRA R Rep #:[id number] : 1950 74 From: Celia Toribio MD PCP: Dr. Daija Mroton MD Status:ADM I NO Location: [place] [address]-1 Hospitalist Note Repeat hemoglobin actually improved, suspect that this was then margin of bladder, will DC FOBT 08/27/241612 Cosigner Signature (if applicable): CC: ~ Signed [facility]03-11-2025 Progress note Author Celia Toribio [facility] Note Date/Time August 27, 2024 1:3 2pm [facility] Medical Records Department [address] [place] [address] Progress Note - Hospitalist 08/27/24 1332 MR#: [id number] Acct: [id number] Name: PEDRO PABLO SIERRA R Rep #:[id number] : 1950 74 From: Celia Toribio MD PCP: Dr. Daija Morton MD Status:ADM I NO Location: [place] GB598-0 Hospitalist Note UA abnormal and is suggestive of UTI and given this and patient suprapubic tenderness we will start patient on Rocephin and await urine culture 08/27/24 1332 <Electronically signed by Celia Toribio MD> Cosigner Signature (if applicable): CC: ~ Signed [facility] Work Phone: 1(783) 178-824503-11-2025 Progress note Author Celia Toribio [facility] Note Date/Time August 27, 2024 12: 52pm [facility] Medical Records Department [address] [place] [address] Progress Note - Hospitalist 08/27/24 0831 MR#: [id number] Acct: [id number] Name: PEDRO PABLO SIERRA Rep #:[id number] : 1950 74 From: Celia Toribio MD PCP: Dr. Daija Morton MD Status:ADM I NO Location: [place] OQ798-1 Reason for Visit Reason for Visit: Diagnoses [...] Neut % (Auto) 56.2, Lymph % (Auto) 23.0,Elliott % (Auto) 13.1 H, Eos % (Auto) [...] to thrive -Patient recently had been at [facility] and was discharged 08/20/2024 buthas been [...] documentation, 36minutes Charges/Coding Visit Charges Inpatient E&M: 92248 Subs Hosp L2 08/27/24 1252 <Electronically signed by Celia Toribio MD> Cosigner Signature (if applicable): CC: ~ Signed [facility] Work Phone: [phone] 150-742903-11-2025 Progress note [facility] Medical Records Department [address] [place] [address] Progress Note - Hospitalist 08/27/24 1332 MR#: [id number] Acct: [id number] Name: PEDRO PABLO SIERRA R Rep #:[id number] : 1950 74 From: Celia Toribio MD PCP: Dr. Daija Morton MD Status:ADM I NO Location: [place] [address] Hospitalist Note UA abnormal and is suggestive of UTI and given this and patient suprapubic tenderness we will startpatient on Rocephin and await urine culture 08/27/242 Cosigner Signature (if applicable): CC: ~ Signed [facility]03-11-2025 Progress note [facility] Medical Records Department [address] [place] [address] Progress Note - Hospitalist 08/27/24 0831 MR#: [id number] Acct: [id number] Name: PEDRO PABLO SIERRA R Rep #:[id number] : 1950 74 From: Celia Toribio MD PCP: Dr. Daija Morton MD Status:ADM I NO [facility] Reason for Visit Reason for Visit: Diagnoses [...] Neut % (Auto) 56.2, Lymph % (Auto) 23.0,Elliott % (Auto) 13.1 H, Eos % (Auto) [...] to thrive -Patient recently had been at [facility] and was discharged 08/20/2024 buthas been [...] documentation, 36minutes Charges/Coding Visit Charges Inpatient E&M: 66868 Subs Hosp L2 08/27/24 1252 Cosigner Signature (if applicable): CC: ~ Signed [facility]03-10-2025 Progress note Author Celia Toribio [facility] Note Date/Time August 26, 2024 4:5 4pm [facility] Medical Records Department [address] [place] [address] Progress Note - Hospitalist 08/26/2407 MR#: [id number] Acct: [id number] Name: PEDRO PABLO SIERRA Rep #:[id number] : 1950 74 From: Celia Toribio MD PCP: Dr. Daija Morton MD Status:ADM I NO Location: [place] QN939-6 Reason for Visit Reason for Visit: Diagnoses [...] 78.4 H, Lymph % (Auto) 10.3 L, Elliott % (Auto) 9.9, Eos % (Auto) 0.3, [...] % (Auto) 60.3, Lymph % (Auto) 19.8, Elliott% (Auto) 15.2 H, Eos % (Auto) 3.4, [...] IMPRESSION: No acute airspace abnormality. Reading Location: [facility] Physical Exam Narrative General: Alert, no apparent [...] to thrive -Patient recently had been at [facility] and was discharged 08/20/2024 buthas been [...] Toribio MD Charges/Coding Visit Charges Inpatient E&M: 36680 Subs Hosp L2 08/26/24 6545 <Electronically signed by Celia Toribio MD> Cosigner Signature (if applicable): CC: ~ Signed [facility] Work Phone: [phone]) 255-349803-10-2025 Progress note [facility] Medical Records Department [address] [place] [address] Progress Note - Hospitalist 08/26/24906 MR#: [id number] Acct: [id number] Name: PEDRO PABLO SIERRA Rep #:[id number] : 1950 74 From: Celia Toribio MD PCP: Dr. Daija Morton MD Status:ADM I NO Location: [place] [address] Reason for Visit Reason for Visit: Diagnoses [...] 78.4 H, Lymph % (Auto) 10.3 L, Elliott % (Auto) 9.9, Eos % (Auto) 0.3, [...] Neut %(Auto) 60.3, Lymph % (Auto) 19.8, Elliott% (Auto) 15.2 H, Eos % (Auto) 3.4, [...] IMPRESSION: No acute airspace abnormality. Reading Location: [facility] Physical Exam Narrative General: Alert, no apparent [...] to thrive -Patient recently had been at [facility] and was discharged 08/20/2024 buthas been [...] Toribio MD Charges/Coding Visit Charges Inpatient E&M: 59831 Subs Hosp L2 08/26/24 9684 Cosigner Signature (if applicable): CC: ~ Signed [facility]03-09-2025 History and physical note Author Lisha Talamantes [facility] Note Date/Time August 25, 2024 7:00 pm [facility] Medical Records Department [address] [place] [address] H&P Exam - Hospitalist 08/25/24 1820 MR#: [id number] Acct: [id number] Name: PEDRO PABLO SIERRA Rep #:[id number] : 1950 74 From: Lisha Talamantes DO PCP: Dr. Daija Morton MD Status:ADM I NO Location: [facility] DU414-6 HPI - General General Date of Admission: 08/25/24 Date of Service: 08/25/24 Chief Complaint: Diarrhea/generalized weakness HPI Narrative PEDRO PABLO SIERRA, is a 74 M who presented to the emergency department [facility] on 08/25/2024 with a chief complaint of generalized weakness and diarrhea. Patient had recently been at [facility] and was discharged about 5 days ago [...] Chest x-ray is unremarkable for acute findings. [facility] Medical History Compression fx, lumbar spine Hypertension [...] 78.4 H, Lymph % (Auto) 10.3 L, Elliott % (Auto) 9.9, Eos % (Auto) 0.3, [...] IMPRESSION: No acute airspace abnormality. Reading Location: [facility] Assessment & Plan Assessment/Plan (1) Acute diarrhea: [...] the current livingenvironment -Was recently discharged from [facility] however patient wasadamant that he did not [...] need clarified Charges/Coding Visit Charges Inpatient E&M: 44898 Init Hosp L2 08/25/24 1900 <Electronically signed by Lisha Talamantes DO> Cosigner Signature (if applicable): CC: Dr. Daija Morton MD; Dr. Lisha Talamantes DO~ Signed [facility] Work Phone: [phone]) 376-917303-09-2025 Discharge summary Author Jaden Jauregui [facility] Note Date/Time August 25, 2024 6:15 pm [facility] Medical Records Department [address] [place] [address] Emergency Department Summary 08/25/24 MR#: [id number] Acct: [id number] Name: PEDRO PABLO SIERRA Rep #:[id number] : 1950 74 From: Jaden Jauregui MD [...] patient'sarrival, apparently he has been in a long term [facility] when he arrived home 5 days ago, he was having diarrhea when he got home, patient stateshe was having it before he left the long term as well, and he has been havingdiarrhea [...] of C. difficile he does not know. [facility] Medical History Compression fx, lumbar spine [...] 78.4 H Lymph % (Auto) 10.3 L Elliott % (Auto) 9.9 Eos % (Auto) 0.3 [...] No acute airspace abnormality. Reading Location: [place] Management Discussion w/another healthcare provider: Hospitalist Discharge Plan Dx/Rx/DC Orders Clinical Impression: Debility, Acute diarrhea, Mild dehydration Disposition Disposition: Acute Care Hospital [facility] What to do if you have Problems For any increased pain, shortness of breath, bleeding, nausea or vomiting, chestpain, or any unexpected problems, contact your Primary Care Provider. Call [facility] ([phone]) or report to the closest Emergency Room. Call 911 if necessary. 08/25/24 181 <Electronically signed by Jaden Jauregui MD> Cosigner Signature (if applicable): CC: Dr. Daija Morton MD ~ Signed [facility] Work Phone: 1(832) 706-936003-09-2025 History and physical note [facility] Medical Records Department [address] [place] [address] H&P Exam - Hospitalist 08/25/24 1820 MR#: [id number] Acct: [id number] Name: PEDRO PABLO SIERRA Rep #:[id number] : 1950 74 From: Lisha Talamantes DO PCP: Dr. Daija Morton MD Status:ADM I NO Location: [facility] QV793-6 HPI - General General Date of Admission: 08/25/24 Date of Service: 08/25/24 Chief Complaint: Diarrhea/generalized weakness HPI Narrative PEDRO PABLO SIERRA, is a 74 M who presented to the emergency department [facility] on 08/25/2024 with a chief complaint of generalized weakness and diarrhea. Patient had recently been at [facility] and was discharged about 5 days ago [...] Chest x-ray is unremarkable for acute findings. [facility] Medical History Compression fx, lumbar spine Hypertension [...] 78.4 H, Lymph % (Auto) 10.3 L, Elliott % (Auto) 9.9, Eos % (Auto) 0.3, [...] IMPRESSION: No acute airspace abnormality. Reading Location: [facility] Assessment & Plan Assessment/Plan (1) Acute diarrhea: [...] the current livingenvironment -Was recently discharged from [facility] however patient wasadamant that he didnot want [...] need clarified Charges/Coding Visit Charges Inpatient E&M: 02607 Init Hosp L2 08/25/24 1900 Cosigner Signature (if applicable): CC: Dr. Daija Morton MD; Dr. Lisha Talamantes, DO~ Signed [facility]03-09-2025 Discharge summary [facility] Medical Records Department [address] [place] [address] Emergency Department Summary 08/25/24 MR#: [id number] Acct: [id number] Name: PEDRO PABLO SIERRA Rep #:[id number] : 1950 74 From: Jaden Jauregui MD [...] patient'sarrival, apparently he has been in a long term [facility] when he arrived home 5 days ago, he was having diarrhea when he got home, patient stateshe was having it before he left the long term as well, and he has been havingdiarrhea [...] of C. difficile he does not know. [facility] Medical History Compression fx, lumbar spine [...] 78.4 H Lymph % (Auto) 10.3 L Elliott % (Auto) 9.9 Eos % (Auto) 0.3 [...] No acute airspace abnormality. Reading Location: [place] Management Discussion w/another healthcare provider: Hospitalist Discharge Plan Dx/Rx/DC Orders Clinical Impression: Debility, Acute diarrhea, Mild dehydration Disposition Disposition: [facility] What to do if you have Problems For any increased pain, shortness of breath, bleeding, nausea or vomiting, chestpain, or any unexpected problems, contact your Primary Care Provider. Call [facility] ([phone]) or report tothe closest Emergency Room. Call 911 if necessary. 08/25/241814 Cosigner Signature (if applicable): CC: Dr. Daija Morton MD ~ Signed [facility]03-09-2025 Radiology Diagnostic study note [facility] Imaging Services [address] [place] [address] Chest 1 View (Portable) MR#: [id number] Acct: [id number] Name: PEDRO PABLO SIERRA R Rep #: [id number] : 1950 M 74 From: Emigdio Lorenzo DO PCP: Dr. Daija Morton MD Status: PRE E R Study:Chest 1 View (Portable) Date of Exam: 08/25/24 Exam# [id number] Ordering Dr: Nevaeh Jauregui MD PROCEDURE: CHEST 1 VIEW (PORTABLE) REASON FOR EXAM: Weakness TECHNIQUE: Frontal view of the chest. COMPARISON: 04/06/2024 FINDINGS: Cardiomediastinal silhouette is within normal limits. Lungs are clear. No sizable pneumothorax. Emphysema. RAD/Chest 1 View (Portable) IMPRESSION: No acute airspace abnormality. Reading Location: [facility] CC: Dr. Jaden Jauregui MD; Dr. Daija Morton MD ~ Agile Developer: Signed [facility]03-09-2025 Discharge summary Author Jaden Jauregui [facility] Note Date/Time August 25, 2024 6:15 pm [facility] Medical Records Department [address] [place] [address] Emergency Department Summary 08/25/24 MR#: [id number] Acct: [id number] Name: PEDRO PABLO SIERRA Shannan Rep #:[id number] : 1950 74 From: Jaden Jauregui MD [...] patient'sarrival, apparently he has been in a long term [facility] when he arrived home 5 days ago, he was having diarrhea when he got home, patient stateshe was having it before he left the long term as well, and he has been havingdiarrhea [...] of C. difficile he does not know. [facility] Medical History Compression fx, lumbar spine [...] 78.4 H Lymph % (Auto) 10.3 L Elliott % (Auto) 9.9 Eos % (Auto) 0.3 [...] IMPRESSION: No acute airspace abnormality. Reading Location: [facility] Discussion w/another healthcare provider: Hospitalist Discharge Plan Dx/Rx/DC Orders Clinical Impression: Debility, Acute diarrhea, Mild dehydration Disposition Disposition: Acute Care Hospital [facility] What to do if you have Problems For any increased pain, shortness of breath, bleeding, nausea or vomiting, chestpain, or any unexpected problems, contact your Primary Care Provider. Call [facility] ([phone]) or report to the closest Emergency Room. Call 911 if necessary. 08/25/241814 <Electronically signed by Jaden Jauregui MD> Cosigner Signature (if applicable): CC: Dr. Daija Morton MD ~ Signed [facility] Work Phone: 1(795) 780-971811-29-2024 Telephone encounter Note* Telephone Encounter - Daija Morton MD - 05/17/2024 12:47 PM EST Noted and agree. RegardsDaija MD [facility]11-29-2024 Miscellaneous Notes* Telephone Encounter - Daija Morton MD - 05/17/2024 12:47 PM EST Noted and agree. RegardsDaija MD * Telephone Encounter - Saundra George RN - 05/17/2024 9:19 AM EST ELFEGO JIMENEZ (Joseph) calls to report that they brought patient home from [facility] and he is not wanting to go back. Per previous TE, referred [place] to [place] ready. Joseph feels they have enough family members to properly take care of patient at home. Per previous TE,instructed [place] to contact the [place] as they should be the ones to determine when patient is safe toreturn home. Joseph verbalizes understanding and is going to contact [facility]. Saundra George RN [facility] Telephone encounter Note * Telephone Encounter - Saundra George RN - 05/17/2024 9:19 AM EST ELFEGO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 Cosigner Signature (if applicable): CC: ~ Signed [facility] Work Phone: 1(694) 191-841602-12-2024 History and physical note Author Brody Maynard [facility] July 31, 2023 1:01am Note Date/Time July 30, 2023 11:50pm [facility] Medical Records Department [address] [place] [address] H&P Exam - Hospitalist 07/30/23 2347 MR#: [id number] Acct: [id number] Name: PEDRO PABLO SIERRA Rep #:[id number] : 1950 73 From: Brody Carson PCP: Dr. Daija Morton MD Status:ADM I N [facility] HPI - General General Date of Admission: 07/30/23 Date of Service: 07/30/23 Chief Complaint: Shortness of breath and wheezing for about 4 days. Confused and disoriented. HPI Narrative PEDRO PABLO SIERRA, is a 73 M with history of COPD on 3 to 5 L of oxygen from [facility] came to ED for shortness of breath along with wheezing and cough. [facility], patient was febrile. Patient was found tachypneic [...] 20 mg IV. Patient is further admitted [facility] Medical History Asthma Atrial fibrillation Chronic pain [...] 76.5 H, Lymph % (Auto) 10.9 L, Elliott % (Auto) 10.7 H, Eos % (Auto) [...] Clarity Clear, Urine pH 7.0, Ur Specific Davenport 1.010, Urine Protein 30 H, Urine Glucose [...] side. 5. Moderate to severe chronic malnutrition: [employer] Loader consult. Nutritional supplement. 6. History of paroxysmal [...] 76.5 H, Lymph % (Auto) 10.9 L, Elliott % (Auto) 10.7 H, Eos % (Auto) [...] Clarity Clear, Urine pH 7.0, Ur Specific Davenport 1.010, Urine Protein 30 H, Urine Glucose [...] Signed: Mario Cramer DO at 21:10 EST Reading Location ID and State: [facility] / [place] Tel [phone], Service support , Charges/Coding Visit Charges Inpatient E&M: 40157 Init Hosp L3 07/31/23 0101 <Electronically signed by Brody Maynard MD> Cosigner Signature (if applicable): CC: Dr. Daija Morton MD; Dr. Brody Maynard MD~ Signed [facility] Work Phone: 1(718) 395-696002-12-2024 Discharge summary Author Huber Alvarado [facility] July 31, 2023 12:08am Note Date/Time July 30, 2023 8:57pm [facility] Medical Records Department [address] [place] [address] Emergency Department Summary 07/30/23 MR#: [id number] Acct: [id number] Name: PEDRO PABLO SIERRA Rep #:[id number] : 1950 73 From: Андрей CORTEZ PCP: [...] here on 24 July, discharged to a long term. Per the long term, the patient was more short of breath, tachypneic, and was wheezing more. Patient is alert and oriented to self. Patient is coarse, not answering to my questions. He is aggressive and is answering. I am not sure ifthis is his baseline. Patient's vital signs are stable on his 3 to 5 L of nasalcannula oxygen, patient is tachypneic. He does have audible wheezing. [facility] <DIEGO Hopper - Last Filed: 07/30/23 22:27> [facility] Medical History Asthma Atrial fibrillation Chronic pain [...] he does not answer any questions. EXAM <Андрей Ng, POSTAL SERVICE WINDOW CLERK-C - Last Filed: 07/30/23 22:27> Physical Exam [...] Cannula Oxygen Flow Rate (L/min) 3 3 [facility] <Андрей NgDIEGO - Last Filed: 07/30/23 22:27> [facility] Lab Data Labs: Laboratory Results - last 24 hr 07/30/23 07/30/23 20:51 21:55 WBC 5.5 RBC 4.07 L Hgb 13.3 Hct 40.4 MCV 99.3 H MCH 32.7 H MCHC 32.9 RDW Std Deviation 48.3 H RDW Coeff of Aly 13.2 Plt Count 262 MPV 9.4 Immature Gran % (Auto) 0.500 Neut % (Auto) 76.5 H Lymph % (Auto) 10.9 L Elliott % (Auto) 10.7 H Eos % (Auto) [...] Clarity Clear Urine pH 7.0 Ur Specific Davenport 1.010 Urine Protein 30 H Urine Glucose [...] is moving all extremities. Currently at the long term after sustaining a pubic rami fracture. Differential [...] Alvarado MD - Last Filed: 07/31/23 00:08> [facility] Narrative Medical decision making narrative: I have personally performed a face to face assessment of the patient and have reviewed the ANDREW Note. I performed a substantive portion of the visit including all aspects of the following. My echevarria findings include: History: This patient was sent in by long term for increased blood pressure and increased dyspnea [...] think this would be tolerated at the long term. He is tachypneic but not tachycardic. He [...] 76.5 H Lymph % (Auto) 10.9 L Elliott % (Auto) 10.7 H Eos % (Auto) [...] Clarity Clear Urine pH 7.0 Ur Specific Davenport 1.010 Urine Protein 30 H Urine Glucose [...] with acute exacerbation Disposition Disposition: Acute Care [facility] What to do if you have Problems For any increased pain, shortness of breath, bleeding, nausea or vomiting, chestpain, or any unexpected problems, contact your Primary Care Provider. Call [facility] ([phone]) or report to the closest Emergency Room. Call 911 if necessary. 07/30/232226 <Electronically signed by Андрей CORTEZ> Cosigner Signature (if applicable): 07/31/23 0008 <Electronically signed by Huber Alvarado MD> CC: Dr. Daija Morton MD ~ Signed [facility] Work Phone: 1(817) 733-884702-11-2024 Discharge summary Author Huber Alvarado [facility] July 31, 2023 12:08am Note Date/Time July 30, 2023 8:57pm [facility] Medical Records Department [address] [place] [address] Emergency Department Summary 07/30/23 MR#: [id number] Acct: [id number] Name: PEDRO PABLO SIERRA Rep #:[id number] : 1950 73 From: Андрей CORTEZ PCP: [...] here on 24 July, discharged to a long term. Per the long term, the patient was more short of breath, tachypneic, and was wheezing more. Patient is alert and oriented to self. Patient is coarse, not answering to my questions. He is aggressive and is answering. I am not sure ifthis is his baseline. Patient's vital signs are stable on his 3 to 5 L of nasalcannula oxygen, patient is tachypneic. He does have audible wheezing. [facility] <DIEGO Hopper - Last Filed: 07/30/23 22:27> [facility] Medical History Asthma Atrial fibrillation Chronic pain [...] Cannula Oxygen Flow Rate (L/min) 3 3 [facility] <DIEGO Hopper - Last Filed: 07/30/23 22:27> [facility] Lab Data Labs: Laboratory Results - last 24 hr 07/30/23 07/30/23 20:51 21:55 WBC 5.5 RBC 4.07 L Hgb 13.3 Hct 40.4 MCV 99.3 H MCH 32.7 H MCHC 32.9 RDW Std Deviation 48.3 H RDW Coeff of Aly 13.2 Plt Count 262 MPV 9.4 Immature Gran % (Auto) 0.500 Neut % (Auto) 76.5 H Lymph % (Auto) 10.9 L Elliott % (Auto) 10.7 H Eos % (Auto) [...] Clarity Clear Urine pH 7.0 Ur Specific Davenport 1.010 Urine Protein 30 H Urine Glucose [...] changes of the brain. Electronically Signed: Mario DO Shoaib at 21:46 EST , Chest X-Ray 07/30/23 [...] is moving all extremities. Currently at the long term after sustaining a pubic rami fracture. Differential [...] Alvarado MD - Last Filed: 07/31/23 00:08> [facility] MDM Narrative Medical decision making narrative: I have personally performed a face to face assessment of the patient and have reviewed the ANDREW Note. I performed a substantive portion of the visit including all aspects of the following. My echevarria findings include: History: This patient was sent in by long term for increased blood pressure and increased dyspnea [...] think this would be tolerated at the long term. He is tachypneic but not tachycardic. He [...] 76.5 H Lymph % (Auto) 10.9 L Elliott % (Auto) 10.7 H Eos % (Auto) [...] Clarity Clear Urine pH 7.0 Ur Specific Davenport 1.010 Urine Protein 30 H Urine Glucose [...] acute exacerbation Disposition Disposition: Acute Care [facility] What to do if you have Problems For any increased pain, shortness of breath, bleeding, nausea or vomiting, chestpain, or any unexpected problems, contact your Primary Care Provider. Call [facility] ([phone]) or report to the closest Emergency Room. Call 911 if necessary. 07/30/232226 <Electronically signed by Андрей Ng POSTAL SERVICE WINDOW CLERK-C> Cosigner Signature (if applicable): 07/31/23 0008 <Electronically signed by Huber Alvarado MD> CC: Dr. Daija Morton MD ~ Signed [facility] Work Phone: [phone]) 476-630502-01-2024 Miscellaneous Notes* Telephone Encounter - Saundra George RN - 07/20/2023 8:49 AM EST Spoke with patient and provider message reviewed. Message left for [facility] to call back if any questions. Saundra George RN * Telephone Encounter - Bryce Rogers MD - 07/19/2023 5:30 PM EST Continue to monitor. Follow up with Anjel next week as scheduled. Do fasting labs as ordered. * Telephone Encounter - Saundra George RN - 07/19/2023 2:59 PM EST Mahnaz baez [facility] calls to give provider update. Patient was seen today for visit and during visit complained of abdominal pain, rib pain, and chest pain with coughing. Afebrile. Productive cough with clear/yellow mucus. Mahnaz reports patient continues to smoke and cough is chronic. Message left on voicemail of Sondra Alejo [phone] to request Pedro Pablo contact the office for further triage. Saundra George RN documented in this encounterPromedica [facility]01-23-2024 Note. MICRO - Microbiology PROCEDURE: Urine Culture [*1] SOURCE: Urine, Clean Catch BODY SITE: COLLECTED DATE/TIME: 07/10/2023 12:00 EST RECEIVED DATE/TIME: 07/10/2023 16:50 EST START DATE/TIME: 07/10/2023 16:50 EST FREE TEXT SOURCE: FINAL REPORTS Final Report [] Verified Date/Time/Personnel: 07/11/2023 14:00 EST 10,000 - 50,000 cfu/ml Mixed growth consistent with normal urogenital kishore. Performing Locations *1: This test was performed at: [facility], [address] [place] [address], [facility] , [facility] ([place])05-30-2023 Miscellaneous Notes* Telephone Encounter - Kelly Zelaya [...] 17 Please advise. Thank you. Kelly Zelaya, ОЛЕГ. documented in this encounterPromedica Fostoria [facility] Hospital12-12-2023 Miscellaneous Notes* Telephone Encounter - Isabella Hdz LPN - 05/30/2023 2:39 PM EST Pharmacy calling requesting refills. Advises that pt just got discharged from long term and theywould like to deliver these meds tomorrow if possible. Last refill Flomax and Proscar 02/28/23 Qty: 30 with 1 refill Last refill lidocaine patches 09/30/22 Qty: 15 with 0 refills JEANNINE 08/27/22 NOV none scheduled Isabella Hdz LPN documented in this encounterPromedica Fostoria [facility]12-04-2023 Miscellaneous Notes* Telephone Encounter - Nani Webb LPN - 05/22/2023 10:17 AM EST Stella with [facility] called in and message below given. Stella's PH>[phone]. Nani Webb LPN * Telephone Encounter - Sammi Cleaning LPN - 05/19/2023 7:10 PM EST Message left on secure voicemail. Sammi Cleaning LPN * Telephone Encounter - Keara Shin MD - 05/19/2023 6:45 PM EST Okay verbal order * Telephone Encounter - Bing Delgado RN - 05/19/2023 1:33 PM EST [facility] with orders for SN & PT. would like to see patient this weekend, and no later than Monday. Requesting verbal order to follow for [facility]. Please phone Etta with verbal: [phone] documented in this encounterPromedica Fostoria Community Hospital10-17-2023 Discharge summary Author Frankie Galindo [facility] April 04, 2023 10:02am Note Date/Time April 04, 2023 9 :21am [facility] Medical Records Department [address] [place] [address] Transfer to [facility] MR#: [id number] Acct: [id number] Name: PEDRO PABLO SIERRA Rep #:[id number] : 1950 72 From: Frankie Galindo MD PCP: Dr. Daija Morton MD Status:ADM I N Certification of patient admission REQUIRED AT TIME OF ADMISSION. I CERTIFY THAT POST-HOSPITAL ECF SERVICES ARE REQUIRED TO BE GIVEN ON AN IN-PATIENT BASIS BECAUSE OF THE ABOVE NAMED PATIENT'S NEED FOR PRISON CARE ON A CONTINUING BASIS FOR THE CONDITION(S) FOR WHICH HE/SHE WAS RECEIVING IN-PATIENT HOSPITAL SERVICES PRIOR TO HIS/HER TRANSFER TO THE F. 04/04/23 1002<Electronically signed by Frankie Galindo MD> [...] - Requested for PT OT eval and psychiatric social worker supervisor to assist with discharge planning 3. 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 Will provide chocolate ensure compact tid [...] cbc while on iv abx. Fax to [phone] sennosides-docusate sodium [Stool Softener-Stimulant Laxat] 8.6-50 mg [...] in before D/C Order can be placed): [facility] (1) UTI (urinary tract infection) Qualifiers: Urinary tract infection type: acute cystitis Hematuria presence: without hematuria Qualified Code(s): N30.00 - Acute cystitis without hematuria 10/17/23 1002 <Electronically signed by Frankie Galindo MD> Cosigner Signature (if applicable): CC: Dr. Daija Morton MD; Dr. Fran Cartwright MD; Dr. Celia Toribio MD; Dr. Elton Moore MD ~ [facility] Work Phone: 1(511) 252-562710-17-2023 Progress note Author Frankie Galindo [facility] April 04, 2023 9:21am Note Date/Time April 04, 2023 7 :31am [facility] Medical Records Department [address] [place] [address] Progress Note - Hospitalist 04/04/23 0731 MR#: [id number] Acct: [id number] Name: PEDRO PABLO SIERRA Rep #:[id number] : 1950 72 From: Frankie Galindo MD PCP: Dr. Daija Morton MD Status:ADM I N Location: [place] [address] Reason for Visit Reason for Visit: Diagnoses [...] % (Auto) 64.4, Lymph % (Auto) 23.6, Elliott % (Auto) 6.3, Eos % (Auto) 3.3, [...] - Requested for PT OT eval and psychiatric social worker supervisor to assist with discharge planning 3. Chronic [...] documentation, 36minutes. Charges/Coding Visit Charges Inpatient E&M: 69498 Subs Hosp L2 04/04/23 0921 <Electronically signed by Frankie Galindo MD> Cosigner Signature (if applicable): CC: ~ Signed [facility] Work Phone: 1(941) 215-610110-16-2023 Consult note Author Elton Moore [facility] April 03, 2023 5:06pm Note Date/Time April 03, 2023 5 :04pm [facility] Medical Records Department [address] [place] [address] Consultation - Infectious Dx 04/03/23 1703 MR#: [id number] Acct: [id number] Name: PEDRO PABLO SIERRA Rep #:[id number] : 1950 72 From: Elton pierce MD PCP: Dr. Daija Morton MD Status:ADM I N Location: [place] [address]-1 Assessment & Plan Assessment/Plan (1) Acute UTI: PLAN: esbl ecoli uti - on meropenem. Will order midline and 7 more days ertapenem with weekly labs. boo Herron HPI Consult Data Date of Consult: 04/03/23 HPI Narrative Reason for Consultation: uti HPI Narrative: PEDRO PABLO SIERRA, is a 72 M who presented with several days weakness, falls, dysuria, fatigue. Admitted on ceftriaxone, now on meropenem. Dysuria improved, no fever here. No abd pain. Full ROS performed and neg except as noted above. [facility] Medical History Asthma Atrial fibrillation Chronic pain [...] % (Auto) 63.8, Lymph % (Auto) 22.5, Elliott% (Auto) 7.6, Eos % (Auto) 3.9, Baso [...] Toribio MD; Dr. Elton Moore MD~ Signed [facility] Work Phone: [phone]) 196-272010-16-2023 Progress note Author Frankie Galindo [facility] April 03, 2023 10:50am Note Date/Time April 03, 2023 1 0:51am [facility] Medical Records Department [address] [place] [address] Progress Note - Hospitalist 04/03/23 1046 MR#: [id number] Acct: [id number] Name: PEDRO PABLO SIERRA Rep #:[id number] : 1950 72 From: Frankie Galindo MD PCP: Dr. Daija Morton MD Status:ADM I N Location: [facility] SX745-0 Reason for Visit Reason for Visit: Diagnoses [...] % (Auto) 63.8, Lymph % (Auto) 22.5, Elliott% (Auto) 7.6, Eos % (Auto) 3.9, Baso [...] 17.5, Glucose 92, Calcium 9.3 Micro: Microbiology 10/12/23 17:04 Urine, Clean Catch Urine Culture - [...] - Requested for PT OT eval and psychiatric social worker supervisor to assist with discharge planning 3. Chronic [...] documentation, 36minutes. Charges/Coding Visit Charges Inpatient E&M: 61100 Subs Hosp L2 04/03/23 1050 <Electronically signed by Frankie Galindo MD> Cosigner Signature (if applicable): CC: ~ Signed [facility] Work Phone: 1(357) 443-320910-15-2023 Progress note Author Frankie Galindo [facility] April 02, 2023 9:12am Note Date/Time April 02, 2023 7 :35am [facility] Medical Records Department [address] [place] [address] Progress Note - Hospitalist 04/02/23 0735 MR#: [id number] Acct: [id number] Name: PEDRO PABLO SIERRA Rep #:[id number] : 1950 72 From: Frankie Galindo MD PCP: Dr. Daija Morton MD Status:ADM I N Location: [place] [address] Reason for Visit Reason for Visit: Diagnoses [...] % (Auto) 58.6, Lymph % (Auto) 23.5, Elliott % (Auto) 11.2 H, Eos % (Auto) [...] - Requested for PT OT eval and psychiatric social worker supervisor to assist with discharge planning 3. Chronic [...] staff involved in patient's care documentation, 36minutes. 04/02/23911 <Electronically signed by Frankie Galindo MD> Cosigner Signature (if applicable): CC: ~ Signed [facility] Work Phone: 1(864) 359-246410-15-2023 Progress note Author Fran Cartwright [facility] April 02, 2023 6:53am Note Date/Time April 02, 2023 6 :53am [facility] Medical Records Department [address] [place] [address] Progress Note 04/02/23651 MR#: [id number] Acct: [id number] Name: PEDRO PABLO SIERRA Rep #:[id number] : 1950 72 From: Fran Cartwright MD PCP: Dr. Daija Morton MD Status:ADM I N Location: [place] [address] Progress Note Urine culture returned positive for ESBL E. coli. E. coli is however sensitive to Zosyn in vitro. Cannot be certain whether E. coli will be sensitive in vivo. Zosyn discontinued. Started on Merrem, adjusted for creatinine clearance. 04/02/23652 <Electronically signed by Fran Cartwright MD> Fran Cartwright MD Cosigner Signature (if applicable): CC: ~ Signed [facility] Work Phone: [phone]) 776-256410-14-2023 Progress note Author Frankie Galindo [facility] April 01, 2023 10:02am Note Date/Time April 01, 2023 7 :53am [facility] Medical Records Department [address] [place] [address] Progress Note - Hospitalist 04/01/23 0751 MR#: [id number] Acct: [id number] Name: PEDRO PABLO SIERRA Rep #:[id number] : 1950 72 From: Frankie Galindo MD PCP: Dr. Daija Morton MD Status:ADM I N Location: [place] [address] Reason for Visit Reason for Visit: Diagnoses [...] (Auto) 70.2 H, Lymph % (Auto) 15.3 L,Elliott % (Auto) 11.0 H, Eos % (Auto) [...] - Requested for PT OT eval and psychiatric social worker supervisor to assist with discharge planning 3. Chronic [...] documentation, 36minutes. Charges/Coding Visit Charges Inpatient E&M: 07385 Subs Hosp L2 04/01/23 1002 <Electronically signed by Frankie Galindo MD> Cosigner Signature (if applicable): CC: ~ Signed [facility] Work Phone: [phone]) 479-830010-13-2023 Progress note Author Celia Toribio [facility] March 31, 2023 11:24am Note Date/Time March 31, 2023 7 :18am [facility] Medical Records Department [address] [place] [address] Progress Note - Hospitalist 03/31/23711 MR#: [id number] Acct: [id number] Name: PEDRO PABLO SIERRA Shannan Rep #:[id number] : 1950 72 From: Celia Toribio MD PCP: Dr. Daija Morton MD Status:ADM I N Location: [place] [address] Reason for Visit Reason for Visit: Diagnoses [...] 79.2 H, Lymph % (Auto) 9.3 L, Elliott % (Auto) 10.5 H, Eos % (Auto) [...] Sl. Cloudy, Urine pH 6.0, Ur Specific Davenport 1.020, Urine Protein 100 H, Urine Glucose [...] 17:14 EDT Reading Location ID and State: [email or web address] / [employer] , Service support , Shoulder X-Ray 03/30/23 15:46 IMPRESSION: Mild degenerative disease as described with no acute fracture or subluxation. Electronically Signed: Irish Velásquez MD at 17:15 EDT Reading Location ID and State: [employer] [facility] [employer] , Service support , Thoracic Spine CT 03/30/23 15:46 IMPRESSION: Diffuse osteopenia/osteoporosis with minimal compression fracture of T11, exact age indeterminate. No retropulsion or extension to the pedicles visualized. Underlying degenerative disease. No subluxation. Electronically Signed: Irish Velásquez MD at 17:12 EDT Reading Location ID and State: [employer] / [employer] , Service support , Chest X-Ray 03/30/23 16:30 IMPRESSION: No acute cardiac pulmonary disease. Electronically Signed: Irish Velásquez MD at 17:15 EDT Reading Location ID and State: [email or web address] / [employer] , Service support , Physical Exam Narrative General: Alert, oriented, [...] documentation, 36minutes. Charges/Coding Visit Charges Inpatient E&M: 24277 Subs Hosp L2 03/31/23 1124 <Electronically signed by Celia Toribio MD> Cosigner Signature (if applicable): CC: ~ Signed [facility] Work Phone: [phone]) 756-983210-12-2023 Discharge summary Author Huber Alvarado [facility] March 30, 2023 8:31pm Note Date/Time March 30, 2023 3 :51pm [facility] Medical Records Department [address] [place] [address] Emergency Department Summary 03/30/23 MR#: [id number] Acct: [id number] Name: PEDRO PABLO SIERRA Rep #:[id number] : 1950 72 From: Huber Alvarado MD PCP: Dr. Daija Morton MD Status:ADM I N Location: [facility] RP348-8 HPI History of Present Illness Chief Complaint: [...] thinks it is just due to pain. [facility] Medical History (Updated 03/30/23 @ 20:31 [...] 79.2 H Lymph % (Auto) 9.3 L Elliott % (Auto) 10.5 H Eos % (Auto) [...] Sl. Cloudy Urine pH 6.0 Ur Specific Davenport 1.020 Urine Protein 100 H Urine Glucose (UA) Normal Urine Ketones Negative Urine Occult Blood 50 H Urine Nitrite Negative Urine Bilirubin Negative Urine Urobilinogen Normal Ur Leukocyte Esterase 500 H Urine RBC 0 SEEN Urine WBC 25-50 SEEN Ur Squamous Epith Cells 0-5 SEEN Urine Bacteria 3+ Urine Mucus 0 SEEN Radiography Diagnostic Testing: Clinical Impression(s) from Imaging Studies Pelvis X-Ray 10/12/23 15:46 IMPRESSION: Mild multilevel degenerative disease with no acute fracture or subluxation. Electronically Signed: Irish Velásquez MD at 17:14 EDT , Shoulder X-Ray 03/30/23 15:46 IMPRESSION: Mild degenerative disease as described with no acute fracture or subluxation. Electronically Signed: Irish Velásquez MD at 17:15 EDT Reading Location ID and State: [id number] / [employer] , Service support , Thoracic Spine CT 03/30/23 15:46 IMPRESSION: Diffuse osteopenia/osteoporosis with minimal compression fracture of T11, exact age indeterminate. No retropulsion or extension to the pedicles visualized. Underlying degenerative disease. No subluxation. Electronically Signed: Irish Velásquez MD at 17:12 EDT Reading Location ID and State: [id number] / [employer] , Service support , Chest X-Ray 03/30/23 16:30 IMPRESSION: No acute cardiac pulmonary disease. Electronically Signed: Irish Velásquez MD at 17:15 EDT Reading Location ID and State: [employer] / [employer] , Service support , EKG Initial EKG: Comments: My independent interpretation the patient's EKG shows sinus rhythm with occasional PACs. No PVC. Mild baseline variation and nonspecific changes. No acute ST elevation or depression. NH interval, QRS duration and QTc are normal. Discharge Plan Dx/Rx/DC Orders Clinical Impression: Compression fracture of thoracic vertebra, Multiple falls, Acute UTI, Inabilityto walk Disposition Disposition: [facility] What to do if you have Problems For any increased pain, shortness of breath, bleeding, nausea or vomiting, chestpain, or any unexpected problems, contact your Primary Care Provider. Call [facility] ([phone]) or report to the closest Emergency Room. Call 911 if necessary. 03/30/232030 <Electronically signed by Huber Alvarado MD> Cosigner Signature (if applicable): CC: Dr. Daija Morton MD ~ Signed [facility] Work Phone: 1(992) 379-590510-12-2023 History and physical note Author Fran Cartwright [facility] March 30, 2023 8:08pm Note Date/Time March 30, 2023 7 :32pm [facility] Medical Records Department [address] [place] [address] H&P Exam - Hospitalist 03/30/231931 MR#: [id number] Acct: [id number] Name: PEDRO PABLO SIERRA Rep #:[id number] : 1950 72 From: Fran Cartwright MD PCP: Dr. Daija Morton MD Status:ADM I N Location: [facility] XV604-0 HPI - General General Date of Admission: [...] patient has a burning sensation with urination. [facility] Medical History (Updated 03/30/23 @ 20:04 by [...] 79.2 H, Lymph % (Auto) 9.3 L, Elliott % (Auto) 10.5 H, Eos % (Auto) [...] Sl. Cloudy, Urine pH 6.0, Ur Specific Davenport 1.020, Urine Protein 100 H, Urine Glucose [...] 17:14 EDT Reading Location ID and State: [facility] , Service support , Shoulder X-Ray 03/30/23 [...] Irish Velásquez MD at 17:15 EDT , Assessment & Plan Assessment/Plan (1) UTI [...] documentation, 70minutes. Charges/Coding Visit Charges Inpatient E&M: 51078 Init Hosp L3 03/30/232007 <Electronically signed by Fran Cartwright MD> Cosigner Signature (if applicable): CC: Dr. Daija Morton MD; Dr. Fran Cartwright MD~ Signed [facility] Work Phone: 1(923) 247-177110-12-2023 Discharge summary Author Huber Alvarado [facility] March 30, 2023 8:31pm Note Date/Time March 30, 2023 3 :51pm [facility] Medical Records Department [address] [place] [address] Emergency Department Summary 03/30/23 MR#: [id number] Acct: [id number] Name: PEDRO PABLO SIERRA Rep #:[id number] : 1950 72 From: Huber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 Overview: Home med: tamsulosin Plan: -Resume Tamsulosin DISPOSITION AND FOLLOW-UP 10/25/2013 Overview: CM following for d/c needs. PT/OT to evaluate-->recommending home PT 07/08/2014 Discharge with home care today Ischemia of extremity 10/14/20132013 Overview: - admitted to [facility] vascular surgery twice in October 2013, s/p left femoral endarterectomy with patch, US guided access RCFA, L profundaplasty, RUFUS recanalization & stenting, CRISPIN stenting on 10/23/13 for aorto-occlusive critical limb ischemia - S/p 11/12-11/19/13 [facility] Vascular Surgery for aortoiliac thrombosis (BLE [...] of this encounter (statuses as of 08/21/2023) [facility] Miscellaneous Notes* Telephone Encounter - Anjel Braga APRN.CNP - 08/13/2021 3:37 PM EST Patient needs to reschedule missed appointment Thank you Anjel Braga APRN.PATIENT SERVICES MANAGER * Telephone Encounter - Bessy Freed RN [...] you. Bessy Freed RN documented in this encounterPromedica Fost[facility]05-27-2021 Miscellaneous Notes* Telephone Encounter - Daija Morton [...] Jonathon. Phoned Love to let her know Sekou is aware of changed coumadin dose. She is going to call [facility], to see if they are bringing patient new pill pack. Reports she was going to discharge patient today, but isgoing to talk to her detasseling crew supervisor about keeping patient on HH for one more visit. * Telephone Encounter - Bing Delgado RN - 11/12/2020 12:50 PM EDT [facility]- [facility]- reports patient's new coumadin instructions have not been updated to [facility]. Attempted to call [facility]- they are closed for lunch. Will try again when they re-open at 1 pm. documented in this encounterPromedica Fost[facility]05-26-2021 History of Present illness Narrative* Nahed Aponte [...] 11, 2020 10:32 AM documented in this encounterPromedica Fostoria [facility]04-24-2020 History of Past illness Narrative* Problem Noted [...] Neurotoin BID at home Patient started on Ledyard postoperatively, pain controlled at time of discharge. Ischemia of extremity 10/14/2013 02/10/2014 Overview: - admitted to [facility] vascular surgery twice in October 2013, s/p left femoral endarterectomy with patch, US guided access RCFA, L profundaplasty, RUFUS recanalization & stenting, CRISPIN stenting on 10/23/13 for aorto-occlusive critical limb ischemia - S/p 11/12-11/19/13 [facility] Vascular Surgery for aortoiliac thrombosis (BLE [...] of this encounter (statuses as of 09/14/2021) [facility] History of Past illness Narrative* Problem Noted [...] Neurotoin BID at home Patient started on Ledyard postoperatively, pain controlled at time of discharge. Ischemia of extremity 10/14/2013 02/10/2014 Overview: - admitted to [facility] vascular surgery twice in October 2013, s/p left femoral endarterectomy with patch, US guided access RCFA, L profundaplasty, RUFUS recanalization & stenting, CRISPIN stenting on 10/23/13 for aorto-occlusive critical limb ischemia - S/p 11/12-6/3/14 [facility] Vascular Surgery for aortoiliac thrombosis (BLE [...] of this encounter (statuses as of 09/15/2021) [facility] History of Past illness Narrative* Problem Noted [...] Neurotoin BID at home Patient started on Ledyard postoperatively, pain controlled at time of discharge. Ischemia of extremity 10/14/2013 02/10/2014 Overview: - admitted to [facility] vascular surgery twice in October 2013, s/p left femoral endarterectomy with patch, US guided access RCFA, L profundaplasty, RUFUS recanalization & stenting, CRISPIN stenting on 10/23/13 for aorto-occlusive critical limb ischemia - S/p 11/12-11/19/13 [facility] Vascular Surgery for aortoiliac thrombosis (BLE [...] of this encounter (statuses as of 09/15/2021) [facility] of Past illness Narrative* Problem Noted [...] Neurotoin BID at home Patient started on Ledyard postoperatively, pain controlled at time of discharge. Ischemia of extremity 10/14/2013 02/10/2014 Overview: - admitted to [facility] vascular surgery twice in October 2013, [...] of this encounter (statuses as of 09/16/2021) [facility] of Past illness Narrative* Problem Noted [...] Neurotoin BID at home Patient started on Ledyard postoperatively, pain controlled at time of discharge. Ischemia of extremity 10/14/2013 02/10/2014 Overview: - admitted to [facility] vascular surgery twice in October 2013, s/p left femoral endarterectomy with patch, US guided access RCFA, L profundaplasty, RUFUS recanalization & stenting, CRISPIN stenting on 10/23/13 for aorto-occlusive critical limb ischemia - S/p 11/12-11/19/13 [facility] Vascular Surgery for aortoiliac thrombosis (BLE [...] of this encounter (statuses as of 09/16/2021) [facility] of Past illness Narrative* Problem Noted [...] Neurotoin BID at home Patient started on Ledyard postoperatively, pain controlled at time of discharge. Ischemia of extremity 10/14/2013 02/10/2014 Overview: - admitted to [facility] vascular surgery twice in October 2013, [...] of this encounter (statuses as of 09/17/2021) [facility] of Past illness Narrative* Problem Noted [...] Neurotoin BID at home Patient started on Ledyard postoperatively, pain controlled at time of discharge. Ischemia of extremity 10/14/2013 02/10/2014 Overview: - admitted to [facility] surgery twice in October 2013, s/p left femoral endarterectomy with patch, US guided access RCFA, L profundaplasty, RUFUS recanalization & stenting, CRISPIN stenting on 10/23/13 for aorto-occlusive critical limb ischemia - S/p 11/12-11/19/13 [facility] Vascular Surgery for aortoiliac thrombosis (BLE [...] of this encounter (statuses as of 09/17/2021) [facility] of [facility] illness Narrative* Problem Noted [...] Neurotoin BID at home Patient started on Ledyard postoperatively, pain controlled at time of discharge. Ischemia of extremity 10/14/2013 02/10/2014 Overview: - admitted to [facility] vascular surgery twice in October 2013, [...] of this encounter (statuses as of 09/17/2021) [facility] of [facility] illness Narrative* Problem Noted [...] Neurotoin BID at home Patient started on Ledyard postoperatively, pain controlled at time of discharge. [...] of this encounter (statuses as of 09/18/2021) [facility] of [facility] illness Narrative* Problem Noted [...] Neurotoin BID at home Patient started on Ledyard postoperatively, pain controlled at time of discharge. Ischemia of extremity 10/14/2013 02/10/2014 Overview: - admitted to [facility] vascular surgery twice in October 2013, [...] of this encounter (statuses as of 09/20/2021) [facility] Narrative* Problem Noted [...] Neurotoin BID at home Patient started on Ledyard postoperatively, pain controlled at time of discharge. Ischemia of extremity 10/14/2013 02/10/2014 Overview: - admitted to [facility] vascular surgery twice in October 2013, s/p left femoral endarterectomy with patch, US guided access RCFA, L profundaplasty, RUFUS recanalization & stenting, CRISPIN stenting on 10/23/13 for aorto-occlusive critical limb ischemia - S/p 11/12-11/19/13 [facility] Vascular Surgery for aortoiliac thrombosis (BLE [...] of this encounter (statuses as of 09/21/2021) [facility] of [facility] illness Narrative* Problem Noted [...] Neurotoin BID at home Patient started on Ledyard postoperatively, pain controlled at time of discharge. Ischemia of extremity 10/14/2013 02/10/2014 Overview: - admitted to [facility] vascular surgery twice in October 2013, [...] of this encounter (statuses as of 09/22/2021) [facility] of [facility] illness Narrative* Problem Noted [...] Neurotoin BID at home Patient started on Ledyard postoperatively, pain controlled at time of discharge. Ischemia of extremity 10/14/2013 02/10/2014 Overview: - admitted to [facility] vascular surgery twice in October 2013, s/p left femoral endarterectomy with patch, US guided access RCFA, L profundaplasty, RUFUS recanalization & stenting, CRISPIN stenting on 10/23/13 for aorto-occlusive critical limb ischemia - S/p 11/12-11/19/13 [facility] Vascular Surgery for aortoiliac thrombosis (BLE [...] of this encounter (statuses as of 09/29/2021) [facility] of [facility] illness Narrative* Problem Noted [...] Neurotoin BID at home Patient started on Ledyard postoperatively, pain controlled at time of discharge. Ischemia of extremity 10/14/2013 02/10/2014 Overview: - admitted to [facility] vascular surgery twice in October 2013, [...] of this encounter (statuses as of 10/04/2021) [facility] of [facility] illness Narrative* Problem Noted [...] Neurotoin BID at home Patient started on Ledyard postoperatively, pain controlled at time of discharge. Ischemia of extremity 10/14/2013 02/10/2014 Overview: - admitted to [facility] vascular surgery twice in October 2013, s/p left femoral endarterectomy with patch, US guided access RCFA, L profundaplasty, RUFUS recanalization & stenting, CRISPIN stenting on 10/23/13 for aorto-occlusive critical limb ischemia - S/p 11/12-11/19/13 [facility] Vascular Surgery for aortoiliac thrombosis (BLE [...] of this encounter (statuses as of 10/06/2021) [facility] Narrative* Problem Noted [...] Neurotoin BID at home Patient started on Ledyard postoperatively, pain controlled at time of discharge. Ischemia of extremity 10/14/2013 02/10/2014 Overview: - admitted to [facility] vascular surgery twice in October 2013, [...] of this encounter (statuses as of 10/07/2021) [facility] Narrative* Problem Noted [...] Neurotoin BID at home Patient started on Ledyard postoperatively, pain controlled at time of discharge. Ischemia of extremity 10/14/2013 02/10/2014 Overview: - admitted to [facility] vascular surgery twice in October 2013, s/p left femoral endarterectomy with patch, US guided access RCFA, L profundaplasty, RUFUS recanalization & stenting, CRISPIN stenting on 10/23/13 for aorto-occlusive critical limb ischemia - S/p 11/12-11/19/13 [facility] Vascular Surgery for aortoiliac thrombosis (BLE [...] of this encounter (statuses as of 10/07/2021) [facility] Narrative* Problem Noted [...] Neurotoin BID at home Patient started on Ledyard postoperatively, pain controlled at time of discharge. Ischemia of extremity 10/14/2013 02/10/2014 Overview: - admitted to [facility] vascular surgery twice in October 2013, [...] of this encounter (statuses as of 10/08/2021) [facility] of [facility] illness Narrative* Problem Noted [...] 20 Overview: Transfuse 2 units PRBC intra-op 4/23/20 Transfuse 2 units PRBC post-op Last Assessment [...] Neurotoin BID at home Patient started on Ledyard postoperatively, pain controlled at time of discharge. Ischemia of extremity 10/14/2013 02/10/2014 Overview: - admitted to [facility] vascular surgery twice in October 2013, s/p left femoral endarterectomy with patch, US guided access RCFA, L profundaplasty, RUFUS recanalization & stenting, CRISPIN stenting on 10/23/13 for aorto-occlusive critical limb ischemia - S/p 11/12-11/19/13 [facility] Vascular Surgery for aortoiliac thrombosis (BLE [...] of this encounter (statuses as of 10/13/2021) [facility] Narrative* Problem Noted [...] Neurotoin BID at home Patient started on Ledyard postoperatively, pain controlled at time of discharge. Ischemia of extremity 10/14/2013 02/10/2014 Overview: - admitted to [facility] vascular surgery twice in October 2013, s/p left femoral endarterectomy with patch, US guided access RCFA, L profundaplasty, RUFUS recanalization & stenting, CRISPIN stenting on 10/23/13 for aorto-occlusive critical limb ischemia - S/p 11/12-11/19/13 [facility] Vascular Surgery for aortoiliac thrombosis (BLE [...] of this encounter (statuses as of 10/13/2021) [facility] Narrative* Problem Noted [...] Neurotoin BID at home Patient started on Ledyard postoperatively, pain controlled at time of discharge. Ischemia of extremity 10/14/2013 02/10/2014 Overview: - admitted to [facility] vascular surgery twice in October 2013, s/p left femoral endarterectomy with patch, US guided access RCFA, L profundaplasty, RUFUS recanalization & stenting, CRISPIN stenting on 10/23/13 for aorto-occlusive critical limb ischemia - S/p 11/12-11/19/13 [facility] Vascular Surgery for aortoiliac thrombosis (BLE [...] of this encounter (statuses as of 10/14/2021) [facility] Narrative* Problem Noted [...] Neurotoin BID at home Patient started on Ledyard postoperatively, pain controlled at time of discharge. Ischemia of extremity 10/14/2013 02/10/2014 Overview: - admitted to [facility] vascular surgery twice in October 2013, s/p left femoral endarterectomy with patch, US guided access RCFA, L profundaplasty, RUFUS recanalization & stenting, CRISPIN stenting on 10/23/13 for aorto-occlusive critical limb ischemia - S/p 11/12-11/19/13 [facility] Vascular Surgery for aortoiliac thrombosis (BLE [...] of this encounter (statuses as of 10/18/2021) [facility] illness Narrative* Problem Noted [...] Neurotoin BID at home Patient started on Ledyard postoperatively, pain controlled at time of discharge. Ischemia of extremity 10/14/2013 02/10/2014 Overview: - admitted to [facility] vascular surgery twice in October 2013, s/p left femoral endarterectomy with patch, US guided access RCFA, L profundaplasty, RUFUS recanalization & stenting, CRISPIN stenting on 10/23/13 for aorto-occlusive critical limb ischemia - S/p 11/12-11/19/13 [facility] Vascular Surgery for aortoiliac thrombosis (BLE [...] of this encounter (statuses as of 10/21/2021) [facility] of [facility] illness Narrative* Problem Noted [...] Neurotoin BID at home Patient started on Ledyard postoperatively, pain controlled at time of discharge. Ischemia of extremity 10/14/2013 02/10/2014 Overview: - admitted to [facility] vascular surgery twice in October 2013, s/p left femoral endarterectomy with patch, US guided access RCFA, L profundaplasty, RUFUS recanalization & stenting, CRISPIN stenting on 10/23/13 for aorto-occlusive critical limb ischemia - S/p 11/12-11/19/13 [facility] Vascular Surgery for aortoiliac thrombosis (BLE [...] of this encounter (statuses as of 10/21/2021) [facility] illness Narrative* Problem Noted [...] Neurotoin BID at home Patient started on Ledyard postoperatively, pain controlled at time of discharge. [...] of this encounter (statuses as of 10/22/2021) [facility] of [facility] Narrative* Problem Noted [...] Neurotoin BID at home Patient started on Ledyard postoperatively, pain controlled at time of discharge. Ischemia of extremity 10/14/2013 02/10/2014 Overview: - admitted to [facility] vascular surgery twice in October 2013, [...] of this encounter (statuses as of 10/22/2021) [facility] of [facility] illness Narrative* Problem Noted [...] Neurotoin BID at home Patient started on Ledyard postoperatively, pain controlled at time of discharge. Ischemia of extremity 10/14/2013 02/10/2014 Overview: - admitted to [facility] vascular surgery twice in October 2013, s/p left femoral endarterectomy with patch, US guided access RCFA, L profundaplasty, RUFUS recanalization & stenting, CRISPIN stenting on 10/23/13 for aorto-occlusive critical limb ischemia - S/p 11/12-11/19/13 [facility] Vascular Surgery for aortoiliac thrombosis (BLE [...] of this encounter (statuses as of 10/22/2021) [facility] Narrative* Problem Noted [...] Neurotoin BID at home Patient started on Ledyard postoperatively, pain controlled at time of discharge. Ischemia of extremity 10/14/2013 02/10/2014 Overview: - admitted to [facility] vascular surgery twice in October 2013, s/p left femoral endarterectomy with patch, US guided access RCFA, L profundaplasty, RUFUS recanalization & stenting, CRISPIN stenting on 10/23/13 for aorto-occlusive critical limb ischemia - S/p 11/12-11/19/13 [facility] Vascular Surgery for aortoiliac thrombosis (BLE [...] of this encounter (statuses as of 10/27/2021) [facility]04-24-2020 History of Past illness Narrative* Problem Noted [...] Neurotoin BID at home Patient started on L[place]ard postoperatively, pain controlled at time of discharge. Ischemia of extremity 10/14/2013 02/10/2014 Overview: - admitted to [facility] vascular surgery twice in October 2013, s/p left femoral endarterectomy with patch, US guided access RCFA, L profundaplasty, RUFUS recanalization & stenting, CRISPIN stenting on 10/23/13 for aorto-occlusive critical limb ischemia - S/p 11/12-11/19/13 [facility] Vascular Surgery for aortoiliac thrombosis (BLE [...] of this encounter (statuses as of 11/08/2021) [facility]04-24-2020 History of Past illness Narrative* Problem Noted [...] Neurotoin BID at home Patient started on L[place]ard postoperatively, pain controlled at time of discharge. Ischemia of extremity 10/14/2013 02/10/2014 Overview: - admitted to [facility] vascular surgery twice in October 2013, s/p left femoral endarterectomy with patch, US guided access RCFA, L profundaplasty, RUFUS recanalization & stenting, CRISPIN stenting on 10/23/13 for aorto-occlusive critical limb ischemia - S/p 11/12-11/19/13 [facility] Vascular Surgery for aortoiliac thrombosis (BLE [...] of this encounter (statuses as of 11/08/2021) [facility]04-24[facility]2020 History of Past illness Narrative* Problem Noted [...] Neurotoin BID at home Patient started on L[place]ard postoperatively, pain controlled at time of discharge. Ischemia of extremity 10/14/2013 02/10/2014 Overview: - admitted to [facility] vascular surgery twice in October 2013, s/p left femoral endarterectomy with patch, US guided access RCFA, L profundaplasty, RUFUS recanalization & stenting, CRISPIN stenting on 10/23/13 for aorto-occlusive critical limb ischemia - S/p 11/12-11/19/13 [facility] Vascular Surgery for aortoiliac thrombosis (BLE [...] of this encounter (statuses as of 11/11/2021) [facility]04-[facility]2020 History of Past illness Narrative* Problem Noted [...] Neurotoin BID at home Patient started on L[place]ard postoperatively, pain controlled at time of discharge. Ischemia of extremity 10/14/2013 02/10/2014 Overview: - admitted to [facility] vascular surgery twice in October 2013, s/p left femoral endarterectomy with patch, US guided access RCFA, L profundaplasty, RUFUS recanalization & stenting, CRISPIN stenting on 10/23/13 for aorto-occlusive critical limb ischemia - S/p 11/12-11/19/13 [facility] Vascular Surgery for aortoiliac thrombosis (BLE [...] of this encounter (statuses as of 11/12/2021) [facility]04-[facility]2020 History of Past illness Narrative* Problem Noted [...] Neurotoin BID at home Patient started on Ledyard postoperatively, pain controlled at time of discharge. Ischemia of extremity 10/14/2013 02/10/2014 Overview: - admitted to [facility] vascular surgery twice in October 2013, s/p left femoral endarterectomy with patch, US guided access RCFA, L profundaplasty, RUFUS recanalization & stenting, CRISPIN stenting on 10/23/13 for aorto-occlusive critical limb ischemia - S/p 11/12-11/19/13 [facility] Vascular Surgery for aortoiliac thrombosis (BLE [...] of this encounter (statuses as of 11/16/2021) [facility]04-[facility]2020 History of Past illness Narrative* Problem Noted [...] Neurotoin BID at home Patient started on L[place]ard postoperatively, pain controlled at time of discharge. Ischemia of extremity 10/14/2013 02/10/2014 Overview: - admitted to [facility] vascular surgery twice in October 2013, s/p left femoral endarterectomy with patch, US guided access RCFA, L profundaplasty, RUFUS recanalization & stenting, CRISPIN stenting on 10/23/13 for aorto-occlusive critical limb ischemia - S/p 11/12-11/19/13 [facility] Vascular Surgery for aortoiliac thrombosis (BLE [...] of this encounter (statuses as of 11/17/2021) [facility]04-24[facility]2020 History of Past illness Narrative* Problem Noted [...] Neurotoin BID at home Patient started on L[place]ard postoperatively, pain controlled at time of discharge. Ischemia of extremity 10/14/2013 02/10/2014 Overview: - admitted to [facility] vascular surgery twice in October 2013, s/p left femoral endarterectomy with patch, US guided access RCFA, L profundaplasty, RUFUS recanalization & stenting, CRISPIN stenting on 10/23/13 for aorto-occlusive critical limb ischemia - S/p 11/12-11/19/13 [facility] Vascular Surgery for aortoiliac thrombosis (BLE [...] of this encounter (statuses as of 11/17/2021) [facility]04-[facility]2020 History of Past illness Narrative* Problem Noted [...] Neurotoin BID at home Patient started on L[place]ard postoperatively, pain controlled at time of discharge. Ischemia of extremity 10/14/2013 02/10/2014 Overview: - admitted to [facility] vascular surgery twice in October 2013, s/p left femoral endarterectomy with patch, US guided access RCFA, L profundaplasty, RUFUS recanalization & stenting, CRISPIN stenting on 10/23/13 for aorto-occlusive critical limb ischemia - S/p 11/12-11/19/13 [facility] Vascular Surgery for aortoiliac thrombosis (BLE [...] of this encounter (statuses as of 11/18/2021) [facility]04-[facility]2020 History of Past illness Narrative* Problem Noted [...] Neurotoin BID at home Patient started on L[place]ard postoperatively, pain controlled at time of discharge. Ischemia of extremity 10/14/2013 02/10/2014 Overview: - admitted to [facility] vascular surgery twice in October 2013, s/p left femoral endarterectomy with patch, US guided access RCFA, L profundaplasty, RUFUS recanalization & stenting, CRISPIN stenting on 10/23/13 for aorto-occlusive critical limb ischemia - S/p 11/12-11/19/13 [facility] Vascular Surgery for aortoiliac thrombosis (BLE [...] of this encounter (statuses as of 11/19/2021) [facility]04[facility]2020 History of Past illness Narrative* Problem Noted [...] Neurotoin BID at home Patient started on Ledyard postoperatively, pain controlled at time of discharge. Ischemia of extremity 10/14/2013 02/10/2014 Overview: - admitted to [facility] vascular surgery twice in October 2013, s/p left femoral endarterectomy with patch, US guided access RCFA, L profundaplasty, RUFUS recanalization & stenting, CRISPIN stenting on 10/23/13 for aorto-occlusive critical limb ischemia - S/p 11/12-11/19/13 [facility] Vascular Surgery for aortoiliac thrombosis (BLE [...] of this encounter (statuses as of 11/19/2021) [facility]04-[facility]2020 History of Past illness Narrative* Problem Noted [...] Neurotoin BID at home Patient started on L[place]ard postoperatively, pain controlled at time of discharge. Ischemia of extremity 10/14/2013 02/10/2014 Overview: - admitted to [facility] vascular surgery twice in October 2013, s/p left femoral endarterectomy with patch, US guided access RCFA, L profundaplasty, RUFUS recanalization & stenting, CRISPIN stenting on 10/23/13 for aorto-occlusive critical limb ischemia - S/p 11/12-11/19/13 [facility] Vascular Surgery for aortoiliac thrombosis (BLE [...] of this encounter (statuses as of 11/26/2021) [facility]04[facility]2020 History of Past illness Narrative* Problem Noted [...] Neurotoin BID at home Patient started on L[place]ard postoperatively, pain controlled at time of discharge. Ischemia of extremity 10/14/2013 02/10/2014 Overview: - admitted to [facility] vascular surgery twice in October 2013, s/p left femoral endarterectomy with patch, US guided access RCFA, L profundaplasty, RUFUS recanalization & stenting, CRISPIN stenting on 10/23/13 for aorto-occlusive critical limb ischemia - S/p 11/12-11/19/13 [facility] Vascular Surgery for aortoiliac thrombosis (BLE [...] of this encounter (statuses as of 11/30/2021) [facility] History of Past illness Narrative* Problem Noted [...] Neurotoin BID at home Patient started on L[place]ard postoperatively, pain controlled at time of discharge. Ischemia of extremity 10/14/2013 02/10/2014 Overview: - admitted to [facility] vascular surgery twice in October 2013, s/p left femoral endarterectomy with patch, US guided access RCFA, L profundaplasty, RUFUS recanalization & stenting, CRISPIN stenting on 10/23/13 for aorto-occlusive critical limb ischemia - S/p 11/12-11/19/13 [facility] Vascular Surgery for aortoiliac thrombosis (BLE [...] of this encounter (statuses as of 12/03/2021) [facility] History of Past illness Narrative* Problem Noted [...] Neurotoin BID at home Patient started on L[place]ard postoperatively, pain controlled at time of discharge. Ischemia of extremity 10/14/2013 02/10/2014 Overview: - admitted to [facility] vascular surgery twice in October 2013, [...] of this encounter (statuses as of 12/07/2021) [facility]2020 History of Past illness Narrative* Problem Noted [...] Neurotoin BID at home Patient started on L[place]ard postoperatively, pain controlled at time of discharge. Ischemia of extremity 10/14/2013 02/10/2014 Overview: - admitted to [facility] vascular surgery twice in October 2013, s/p left femoral endarterectomy with patch, US guided access RCFA, L profundaplasty, RUFUS recanalization & stenting, CRISPIN stenting on 10/23/13 for aorto-occlusive critical limb ischemia - S/p 11/12-11/19/13 [facility] Vascular Surgery for aortoiliac thrombosis (BLE [...] of this encounter (statuses as of 01/14/2022) [facility]04[facility]2020 History of Past illness Narrative* Problem Noted [...] Neurotoin BID at home Patient started on L[place]ard postoperatively, pain controlled at time of discharge. Ischemia of extremity 10/14/2013 02/10/2014 Overview: - admitted to [facility] vascular surgery twice in October 2013, s/p left femoral endarterectomy with patch, US guided access RCFA, L profundaplasty, RUFUS recanalization & stenting, CRISPIN stenting on 10/23/13 for aorto-occlusive critical limb ischemia - S/p 11/12-11/19/13 [facility] Vascular Surgery for aortoiliac thrombosis (BLE [...] of this encounter (statuses as of 01/14/2022) [facility]04-[facility]2020 History of Past illness Narrative* Problem Noted [...] Neurotoin BID at home Patient started on Ledyard postoperatively, pain controlled at time of discharge. Ischemia of extremity 10/14/2013 02/10/2014 Overview: - admitted to [facility] vascular surgery twice in October 2013, s/p left femoral endarterectomy with patch, US guided access RCFA, L profundaplasty, RUFUS recanalization & stenting, CRISPIN stenting on 10/23/13 for aorto-occlusive critical limb ischemia - S/p 11/12-11/19/13 [facility] Vascular Surgery for aortoiliac thrombosis (BLE [...] of this encounter (statuses as of 01/25/2022) [facility]04[facility]2020 History of Past illness Narrative* Problem Noted [...] Neurotoin BID at home Patient started on L[place]ard postoperatively, pain controlled at time of discharge. Ischemia of extremity 10/14/2013 02/10/2014 Overview: - admitted to [facility] vascular surgery twice in October 2013, s/p left femoral endarterectomy with patch, US guided access RCFA, L profundaplasty, RUFUS recanalization & stenting, CRISPIN stenting on 10/23/13 for aorto-occlusive critical limb ischemia - S/p 11/12-11/19/13 [facility] Vascular Surgery for aortoiliac thrombosis (BLE [...] of this encounter (statuses as of 01/28/2022) [facility] History of Past illness Narrative* Problem Noted [...] Neurotoin BID at home Patient started on L[place]ard postoperatively, pain controlled at time of discharge. Ischemia of extremity 10/14/2013 02/10/2014 Overview: - admitted to [facility] vascular surgery twice in October 2013, s/p left femoral endarterectomy with patch, US guided access RCFA, L profundaplasty, RUFUS recanalization & stenting, CRISPIN stenting on 10/23/13 for aorto-occlusive critical limb ischemia - S/p 11/12-11/19/13 [facility] Vascular Surgery for aortoiliac thrombosis (BLE [...] of this encounter (statuses as of 01/31/2022) [facility]04[facility]2020 History of Past illness Narrative* Problem Noted [...] Neurotoin BID at home Patient started on L[place]ard postoperatively, pain controlled at time of discharge. Ischemia of extremity 10/14/2013 02/10/2014 Overview: - admitted to [facility] vascular surgery twice in October 2013, s/p left femoral endarterectomy with patch, US guided access RCFA, L profundaplasty, RUFUS recanalization & stenting, CRISPIN stenting on 10/23/13 for aorto-occlusive critical limb ischemia - S/p 11/12-11/19/13 [facility] Vascular Surgery for aortoiliac thrombosis (BLE [...] of this encounter (statuses as of 01/31/2022) [facility]2020 History of Past illness Narrative* Problem Noted [...] Neurotoin BID at home Patient started on L[place]ard postoperatively, pain controlled at time of discharge. Ischemia of extremity 10/14/2013 02/10/2014 Overview: - admitted to [facility] vascular surgery twice in October 2013, s/p left femoral endarterectomy with patch, US guided access RCFA, L profundaplasty, RUFUS recanalization & stenting, CRISPIN stenting on 10/23/13 for aorto-occlusive critical limb ischemia - S/p 11/12-11/19/13 [facility] Vascular Surgery for aortoiliac thrombosis (BLE [...] of this encounter (statuses as of 01/31/2022) [facility]2020 History of Past illness Narrative* Problem Noted [...] Neurotoin BID at home Patient started on L[place]ard postoperatively, pain controlled at time of discharge. Ischemia of extremity 10/14/2013 02/10/2014 Overview: - admitted to [facility] vascular surgery twice in October 2013, s/p left femoral endarterectomy with patch, US guided access RCFA, L profundaplasty, RUFUS recanalization & stenting, CRISPIN stenting on 10/23/13 for aorto-occlusive critical limb ischemia - S/p 11/12-11/19/13 [facility] Vascular Surgery for aortoiliac thrombosis (BLE [...] of this encounter (statuses as of 02/03/2022) [facility] History of Past illness Narrative* Problem Noted [...] Neurotoin BID at home Patient started on L[place]ard postoperatively, pain controlled at time of discharge. Ischemia of extremity 10/14/2013 02/10/2014 Overview: - admitted to [facility] vascular surgery twice in October 2013, s/p left femoral endarterectomy with patch, US guided access RCFA, L profundaplasty, RUFUS recanalization & stenting, CRISPIN stenting on 10/23/13 for aorto-occlusive critical limb ischemia - S/p 11/12-11/19/13 [facility] Vascular Surgery for aortoiliac thrombosis (BLE [...] of this encounter (statuses as of 02/24/2022) [facility] History of Past illness Narrative* Problem Noted [...] Neurotoin BID at home Patient started on L[place]ard postoperatively, pain controlled at time of discharge. Ischemia of extremity 10/14/2013 02/10/2014 Overview: - admitted to [facility] vascular surgery twice in October 2013, s/p left femoral endarterectomy with patch, US guided access RCFA, L profundaplasty, RUFUS recanalization & stenting, CRISPIN stenting on 10/23/13 for aorto-occlusive critical limb ischemia - S/p 11/12-11/19/13 [facility] Vascular Surgery for aortoiliac thrombosis (BLE [...] of this encounter (statuses as of 02/24/2022) [facility] History of Past illness Narrative* Problem Noted [...] Neurotoin BID at home Patient started on L[place]ard postoperatively, pain controlled at time of discharge. Ischemia of extremity 10/14/2013 02/10/2014 Overview: - admitted to [facility] vascular surgery twice in October 2013, s/p left femoral endarterectomy with patch, US guided access RCFA, L profundaplasty, RUFUS recanalization & stenting, CRISPIN stenting on 10/23/13 for aorto-occlusive critical limb ischemia - S/p 11/12-11/19/13 [facility] Vascular Surgery for aortoiliac thrombosis (BLE [...] of this encounter (statuses as of 03/02/2022) [facility] History of Past illness Narrative* Problem Noted [...] Neurotoin BID at home Patient started on Ledyard postoperatively, pain controlled at time of discharge. Ischemia of extremity 10/14/2013 02/10/2014 Overview: - admitted to [facility] vascular surgery twice in October 2013, s/p left femoral endarterectomy with patch, US guided access RCFA, L profundaplasty, RUFUS recanalization & stenting, CRISPIN stenting on 10/23/13 for aorto-occlusive critical limb ischemia - S/p 11/12-11/19/13 [facility] Vascular Surgery for aortoiliac thrombosis (BLE [...] of this encounter (statuses as of 03/10/2022) [facility] History of Past illness Narrative* Problem Noted [...] Neurotoin BID at home Patient started on Ledyard postoperatively, pain controlled at time of discharge. Ischemia of extremity 10/14/2013 02/10/2014 Overview: - admitted to [facility] vascular surgery twice in October 2013, s/p left femoral endarterectomy with patch, US guided access RCFA, L profundaplasty, RUFUS recanalization & stenting, CRISPIN stenting on 10/23/13 for aorto-occlusive critical limb ischemia - S/p 11/12-11/19/13 [facility] Vascular Surgery for aortoiliac thrombosis (BLE [...] of this encounter (statuses as of 03/10/2022) [facility] History of Past illness Narrative* Problem Noted [...] Neurotoin BID at home Patient started on Ledyard postoperatively, pain controlled at time of discharge. Ischemia of extremity 10/14/2013 02/10/2014 Overview: - admitted to [facility] vascular surgery twice in October 2013, [...] of this encounter (statuses as of 03/11/2022) [facility] History of Past illness Narrative* Problem Noted [...] Neurotoin BID at home Patient started on L[place]ard postoperatively, pain controlled at time of discharge. Ischemia of extremity 10/14/2013 02/10/2014 Overview: - admitted to [facility] vascular surgery twice in October 2013, [...] of this encounter (statuses as of 03/11/2022) [facility] History of Past illness Narrative* Problem Noted [...] Neurotoin BID at home Patient started on Ledyard postoperatively, pain controlled at time of discharge. Ischemia of extremity 10/14/2013 02/10/2014 Overview: - admitted to [facility] vascular surgery twice in October 2013, [...] of this encounter (statuses as of 03/18/2022) [facility] History of Past illness Narrative* Problem Noted [...] Neurotoin BID at home Patient started on Ledyard postoperatively, pain controlled at time of discharge. Ischemia of extremity 10/14/2013 02/10/2014 Overview: - admitted to [facility] vascular surgery twice in October 2013, [...] of this encounter (statuses as of 03/24/2022) [facility] History of Past illness Narrative* Problem Noted [...] Neurotoin BID at home Patient started on Ledyard postoperatively, pain controlled at time of discharge. Ischemia of extremity 10/14/2013 02/10/2014 Overview: - admitted to [facility] vascular surgery twice in October 2013, s/p left femoral endarterectomy with patch, US guided access RCFA, L profundaplasty, RUFUS recanalization & stenting, CRISPIN stenting on 10/23/13 for aorto-occlusive critical limb ischemia - S/p 11/12-11/19/13 [facility] Vascular Surgery for aortoiliac thrombosis (BLE [...] of this encounter (statuses as of 04/01/2022) [facility] History of Past illness Narrative* Problem Noted [...] Neurotoin BID at home Patient started on Ledyard postoperatively, pain controlled at time of discharge. Ischemia of extremity 10/14/2013 02/10/2014 Overview: - admitted to [facility] vascular surgery twice in October 2013, s/p left femoral endarterectomy with patch, US guided access RCFA, L profundaplasty, RUFUS recanalization & stenting, CRISPIN stenting on 10/23/13 for aorto-occlusive critical limb ischemia - S/p 11/12-11/19/13 [facility] Vascular Surgery for aortoiliac thrombosis (BLE [...] of this encounter (statuses as of 06/19/2022) [facility] History of Past illness Narrative* Problem Noted [...] new labs pending Thrombosis 11/12/2013 02/10/2014 Overview: 5/27/14 s/p lysis catheter placemenst for aortoiliac thrombosis. On heparin and tPA at present. Erythema of groin 10/30/2013 02/10/2014 Overview: Patient recently discharge on oral regimen of bactrim for 2 week course (till 11/20/13) for recurrent groin erythema Pain, postoperative, acute 10/30/201302/10 Overview: Patient on 300 mg og Neurotoin BID at home Patient started on L[place]ard postoperatively, pain controlled at time of discharge. Ischemia of extremity 10/14/2013 02/10/2014 Overview: - admitted to [facility] vascular surgery twice in October 2013, s/p left femoral endarterectomy with patch, US guided access RCFA, L profundaplasty, RUFUS recanalization & stenting, CRISPIN stenting on 10/23/13 for aorto-occlusive critical limb ischemia - S/p 11/12-11/19/13 [facility] Vascular Surgery for aortoiliac thrombosis (BLE [...] of this encounter (statuses as of 08/02/2022) [facility] History of Past illness Narrative* Problem Noted [...] for aorto-occlusive critical limb ischemia, CAD previous AK, DM, HTN, DLD, COPD, UC/IBD on sulfasalazine [...] Neurotoin BID at home Patient started on Ledyard postoperatively, pain controlled at time of discharge. Urinary retention 10/25/2013 08/18/2022 Overview: Home med: tamsulosin Plan: -Resume Tamsulosin DISPOSITION AND FOLLOW-UP 10/25/20132022 Overview: CM following for d/c needs. PT/OT to evaluate-->recommending home PT 07/08/2014 Discharge with home care today Ischemia of extremity 10/14/2013 02/10/2014 Overview: - admitted to [facility] vascular surgery twice in October 2013, s/p left femoral endarterectomy with patch, US guided access RCFA, L profundaplasty, RUFUS recanalization & stenting, CRISPIN stenting on 10/23/13 for aorto-occlusive critical limb ischemia - S/p 11/12-11/19/13 [facility] Vascular Surgery for aortoiliac thrombosis (BLE [...] of this encounter (statuses as of 08/25/2022) [facility] History of Past illness Narrative* Problem Noted [...] of bactrim for 2 week course (till 6/4/14) for recurrent groin erythema SUMMARY 10/30/2013 08/18/2022 Overview: Pedro Pablo Sierra is a 63 year old male with PMH significant for PVD, acute ischemic LE (October/2013) s/p CRISPIN stenting on 10/23/13 for aorto-occlusive critical limb ischemia, CAD previous AK, DM, HTN, DLD, COPD, UC/IBD on sulfasalazine [...] Neurotoin BID at home Patient started on Ledyard postoperatively, pain controlled at time of discharge. [...] of this encounter (statuses as of 08/27/2022) [facility] History of Past illness Narrative* Problem Noted [...] for aorto-occlusive critical limb ischemia, CAD previous AK, DM, HTN, DLD, COPD, UC/IBD on sulfasalazine [...] Neurotoin BID at home Patient started on Ledyard postoperatively, pain controlled at time of discharge. Urinary retention 10/25/2013 08/18/2022 Overview: Home med: tamsulosin Plan: -Resume Tamsulosin DISPOSITION AND FOLLOW-UP 10/25/20132022 Overview: CM following for d/c needs. PT/OT to evaluate-->recommending home PT 07/08/2014 Discharge with home care today Ischemia of extremity 10/14/2013 02/10/2014 Overview: - admitted to [facility] vascular surgery twice in October 2013, s/p left femoral endarterectomy with patch, US guided access RCFA, L profundaplasty, RUFUS recanalization & stenting, CRISPIN stenting on 10/23/13 for aorto-occlusive critical limb ischemia - S/p 11/12-11/19/13 [facility] Vascular Surgery for aortoiliac thrombosis (BLE [...] of this encounter (statuses as of 08/27/2022) [facility]2020 History of Past illness Narrative* Problem Noted [...] for aorto-occlusive critical limb ischemia, CAD previous AK, DM, HTN, DLD, COPD, UC/IBD on sulfasalazine [...] Neurotoin BID at home Patient started on Ledyard postoperatively, pain controlled at time of discharge. Urinary retention 10/25/2013 08/18/2022 Overview: Home med: tamsulosin Plan: -Resume Tamsulosin DISPOSITION AND FOLLOW-UP 10/25/20132022 Overview: CM following for d/c needs. PT/OT to evaluate-->recommending home PT 07/08/2014 Discharge with home care today Ischemia of extremity 10/14/2013 02/10/2014 Overview: - admitted to [facility] vascular surgery twice in October 2013, s/p left femoral endarterectomy with patch, US guided access RCFA, L profundaplasty, RUFUS recanalization & stenting, CRISPIN stenting on 10/23/13 for aorto-occlusive critical limb ischemia - S/p 11/12-11/19/13 [facility] Vascular Surgery for aortoiliac thrombosis (BLE [...] of this encounter (statuses as of 08/29/2022) [facility] History of Past illness Narrative* Problem Noted [...] for aorto-occlusive critical limb ischemia, CAD previous AK, DM, HTN, DLD, COPD, UC/IBD on sulfasalazine [...] Neurotoin BID at home Patient started on Ledyard postoperatively, pain controlled at time of discharge. Urinary retention 10/25/2013 08/18/2022 Overview: Home med: tamsulosin Plan: -Resume Tamsulosin DISPOSITION AND FOLLOW-UP 10/25/20132022 Overview: CM following for d/c needs. PT/OT to evaluate-->recommending home PT 07/08/2014 Discharge with home care today Ischemia of extremity 10/14/2013 02/10/2014 Overview: - admitted to [facility] vascular surgery twice in October 2013, s/p left femoral endarterectomy with patch, US guided access RCFA, L profundaplasty, RUFUS recanalization & stenting, CRISPIN stenting on 10/23/13 for aorto-occlusive critical limb ischemia - S/p 11/12-11/19/13 [facility] Vascular Surgery for aortoiliac thrombosis (BLE [...] of this encounter (statuses as of 09/02/2022) [facility] History of Past illness Narrative* Problem Noted [...] for aorto-occlusive critical limb ischemia, CAD previous AK, DM, HTN, DLD, COPD, UC/IBD on sulfasalazine [...] Neurotoin BID at home Patient started on Ledyard postoperatively, pain controlled at time of discharge. [...] of this encounter (statuses as of 09/07/2022) [facility] History of Past illness Narrative* Problem Noted [...] for aorto-occlusive critical limb ischemia, CAD previous AK, DM, HTN, DLD, COPD, UC/IBD on sulfasalazine [...] Neurotoin BID at home Patient started on Ledyard postoperatively, pain controlled at time of discharge. Urinary retention 10/25/2013 08/18/2022 Overview: Home med: tamsulosin Plan: -Resume Tamsulosin DISPOSITION AND FOLLOW-UP 10/25/20132022 Overview: CM following for d/c needs. PT/OT to evaluate-->recommending home PT 07/08/2014 Discharge with home care today Ischemia of extremity 10/14/2013 02/10/2014 Overview: - admitted to [facility] vascular surgery twice in October 2013, [...] of this encounter (statuses as of 10/01/2022) [facility] History of Past illness Narrative* Problem Noted [...] for aorto-occlusive critical limb ischemia, CAD previous AK, DM, HTN, DLD, COPD, UC/IBD on sulfasalazine [...] Neurotoin BID at home Patient started on Ledyard postoperatively, pain controlled at time of discharge. Urinary retention 10/25/2013 08/18/2022 Overview: Home med: tamsulosin Plan: -Resume Tamsulosin DISPOSITION AND FOLLOW-UP 10/25/2013 Overview: CM following for d/c needs. PT/OT to evaluate-->recommending home PT 07/08/2014 Discharge with home care today Ischemia of extremity 10/14/20132013 Overview: - admitted to [facility] vascular surgery twice in October 2013, s/p left femoral endarterectomy with patch, US guided access RCFA, L profundaplasty, RUFUS recanalization & stenting, CRISPIN stenting on 10/23/13 for aorto-occlusive critical limb ischemia - S/p 11/12-11/19/13 [facility] Vascular Surgery for aortoiliac thrombosis (BLE [...] of this encounter (statuses as of 12/27/2022) [facility] History of Past illness Narrative* Problem Noted [...] for aorto-occlusive critical limb ischemia, CAD previous AK, DM, HTN, DLD, COPD, UC/IBD on sulfasalazine [...] Neurotoin BID at home Patient started on Ledyard postoperatively, pain controlled at time of discharge. Urinary retention 10/25/2013 08/18/2022 Overview: Home med: tamsulosin Plan: -Resume Tamsulosin DISPOSITION AND FOLLOW-UP 10/25/2013 Overview: CM following for d/c needs. PT/OT to evaluate-->recommending home PT 07/08/2014 Discharge with home care today Ischemia of extremity 10/14/20132013 Overview: - admitted to [facility] vascular surgery twice in October 2013, s/p left femoral endarterectomy with patch, US guided access RCFA, L profundaplasty, RUFUS recanalization & stenting, CRISPIN stenting on 10/23/13 for aorto-occlusive critical limb ischemia - S/p 11/12-11/19/13 [facility] Vascular Surgery for aortoiliac thrombosis (BLE [...] of this encounter (statuses as of 12/27/2022) [facility] History of Past illness Narrative* Problem Noted [...] for aorto-occlusive critical limb ischemia, CAD previous AK, DM, HTN, DLD, COPD, UC/IBD on sulfasalazine [...] Neurotoin BID at home Patient started on Ledyard postoperatively, pain controlled at time of discharge. [...] of this encounter (statuses as of 01/28/2023) [facility] History of Past illness Narrative* Problem Noted [...] with that. Acute blood loss anemia 01/28/2014 04/2 11/2019 [...] for aorto-occlusive critical limb ischemia, CAD previous AK, DM, HTN, DLD, COPD, UC/IBD on sulfasalazine [...] Neurotoin BID at home Patient started on Ledyard postoperatively, pain controlled at time of discharge. Urinary retention 10/25/2013 08/18/2022 Overview: Home med: tamsulosin Plan: -Resume Tamsulosin DISPOSITION AND FOLLOW-UP 10/25/2013 Overview: CM following for d/c needs. PT/OT to evaluate-->recommending home PT 07/08/2014 Discharge with home care today Ischemia of extremity 10/14/20132013 Overview: - admitted to [facility] vascular surgery twice in October 2013, [...] of this encounter (statuses as of 03/01/2023) [facility] History of Past illness Narrative* Problem Noted [...] for aorto-occlusive critical limb ischemia, CAD previous AK, DM, HTN, DLD, COPD, UC/IBD on sulfasalazine [...] Neurotoin BID at home Patient started on Ledyard postoperatively, pain controlled at time of discharge. Urinary retention 10/25/2013 08/18/2022 Overview: Home med: tamsulosin Plan: -Resume Tamsulosin DISPOSITION AND FOLLOW-UP 10/25/2013 Overview: CM following for d/c needs. PT/OT to evaluate-->recommending home PT 07/08/2014 Discharge with home care today Ischemia of extremity 10/14/20132013 Overview: - admitted to [facility] vascular surgery twice in October 2013, [...] of this encounter (statuses as of 03/31/2023) [facility] History of Past illness Narrative* Problem Noted [...] for aorto-occlusive critical limb ischemia, CAD previous AK, DM, HTN, DLD, COPD, UC/IBD on sulfasalazine [...] Neurotoin BID at home Patient started on Ledyard postoperatively, pain controlled at time of discharge. Urinary retention 10/25/2013 08/18/2022 Overview: Home med: tamsulosin Plan: -Resume Tamsulosin DISPOSITION AND FOLLOW-UP 10/25/2013 Overview: CM following for d/c needs. PT/OT to evaluate-->recommending home PT 07/08/2014 Discharge with home care today Ischemia of extremity 10/14/20132013 Overview: - admitted to [facility] vascular surgery twice in October 2013, s/p left femoral endarterectomy with patch, US guided access RCFA, L profundaplasty, RUFUS recanalization & stenting, CRISPIN stenting on 10/23/13 for aorto-occlusive critical limb ischemia - S/p 11/12-11/19/13 [facility] Vascular Surgery for aortoiliac thrombosis (BLE [...] of this encounter (statuses as of 05/22/2023) [facility] History of Past illness Narrative* Problem Noted [...] for aorto-occlusive critical limb ischemia, CAD previous AK, DM, HTN, DLD, COPD, UC/IBD on sulfasalazine [...] Neurotoin BID at home Patient started on Ledyard postoperatively, pain controlled at time of discharge. Urinary retention 10/25/2013 08/18/2022 Overview: Home med: tamsulosin Plan: -Resume Tamsulosin DISPOSITION AND FOLLOW-UP 10/25/2013 Overview: CM following for d/c needs. PT/OT to evaluate-->recommending home PT 07/08/2014 Discharge with home care today Ischemia of extremity 10/14/20132013 Overview: - admitted to [facility] vascular surgery twice in October 2013, s/p left femoral endarterectomy with patch, US guided access RCFA, L profundaplasty, RUFUS recanalization & stenting, CRISPIN stenting on 10/23/13 for aorto-occlusive critical limb ischemia - S/p 11/12-11/19/13 [facility] Vascular Surgery for aortoiliac thrombosis (BLE [...] of this encounter (statuses as of 05/31/2023) [facility] History of Past illness Narrative* Problem Noted [...] with that. Acute blood loss anemia 01/28/2014 04/2 11/2019 [...] for aorto-occlusive critical limb ischemia, CAD previous AK, DM, HTN, DLD, COPD, UC/IBD on sulfasalazine [...] Neurotoin BID at home Patient started on Ledyard postoperatively, pain controlled at time of discharge. Urinary retention 10/25/2013 08/18/2022 Overview: Home med: tamsulosin Plan: -Resume Tamsulosin DISPOSITION AND FOLLOW-UP 10/25/2013 Overview: CM following for d/c needs. PT/OT to evaluate-->recommending home PT 07/08/2014 Discharge with home care today Ischemia of extremity 10/14/20132013 Overview: - admitted to [facility] vascular surgery twice in October 2013, [...] of this encounter (statuses as of 05/31/2023) [facility]04-[facility]-2020 Evaluation note* Diagnosis s/p left femoral endarterectomy/aortoiliac stenting 10/08/2019- Primary Peripheral vascular disease, unspecified PVD (peripheral vascular disease) (HCC) Peripheral vascular disease, unspecified Smoker Tobacco use disorder documented in this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 16:30 IMPRESSION: No acute cardiac pulmonary disease. Electronically Signed: Irish Velásquez MD at 17:15 EDT Reading Location ID and State: [id number] , Service support , Assessment & Plan [...] documentation, 70minutes. Charges/Coding Visit Charges Inpatient E&M: 08283 Init Hosp 03/30/232007 <Electronically signed by Fran Cartwright MD> Cosigner Signature (if applicable): CC: Dr. Daija Morton MD; Dr. Fran Cartwright MD~ Signed [facility] Work Phone: History and physical note Author Андрей Cooley [facility] July 24, 2023 9:10pm Note Date/Time July 24, 2023 9 :10pm [facility] Medical Records Department [address] [place] [address] History & Physical Exam 07/24/232103 MR#: [id number] Acct: [id number] Name: PEDRO PABLO SIERRA Rep #:[id number] : 1950 73 From: Андрей Cooley MD [...] past medical history of recent discharge from long term for debility and weakness. Patient does also have a history of long-term smoking. Patient denies any chest pain, shortness of breath fevers or chills at present time. He will be admitted for pain control and case management to arrange for long-term care facility. [facility] Medical History Asthma Atrial fibrillation Chronic pain [...] 74.0 H, Lymph % (Auto) 16.0 L, Elliott % (Auto) 7.3, Eos % (Auto) 1.1, [...] 17:27 EST Reading Location ID and State: [address] [place] [address] Tel , Service support , Assessment & [...] on anticoagulation Charges/Coding Visit Charges Inpatient E&M: 21826 Init Hosp L2 07/24/232109 <Electronically signed by Андрей Cooley MD> Cosigner Signature (if applicable): CC: Dr. Daija Morton MD; Dr. Андрей Cooley MD~ Signed [facility] Work Phone: History and physical note Author Lisha Talamantes [facility] Note Date/Time August 25, 2024 7:00 pm [facility] Medical Records Department [address] [place] [address] H&P Exam - Hospitalist 08/25/24 1820 MR#: [id number] Acct: [id number] Name: PEDRO PABLO SIERRA Rep #:[id number] : 1950 74 From: Lisha Talamantes DO PCP: Dr. Daija Morton MD Status:ADM I NO Location: [facility] [id number] HPI - General General Date of Admission: 08/25/24 Date of Service: 08/25/24 Chief Complaint: Diarrhea/generalized weakness HPI Narrative PEDRO PABLO SIERRA, is a 74 M who presented to the emergency department [facility] on 08/25/2024 with a chief complaint of generalized weakness and diarrhea. Patient had recently been at [facility] and was discharged about 5 days ago [...] Chest x-ray is unremarkable for acute findings. [facility] Medical History Compression fx, lumbar spine Hypertension [...] 78.4 H, Lymph % (Auto) 10.3 L, Elliott % (Auto) 9.9, Eos % (Auto) 0.3, [...] the current livingenvironment -Was recently discharged from [facility] however patient wasadamant that he did not [...] need clarified Charges/Coding Visit Charges Inpatient E&M: 42605 Init Hosp L2 08/25/24 1900 <Electronically signed by Lisha Talamantes DO> Cosigner Signature (if applicable): CC: Dr. Daija Morton MD; Dr. Lisha Talamantes DO~ Signed [facility] Work Phone: History and physical note Author Shilpa Contreras [facility] Note Date/Time December 13, 2024 8:50 pm [facility] Medical Records Department [address] [place] [address] H&P Exam - Hospitalist 12/13/241948 MR#: [id number] Acct: [id number] Name: PEDRO PABLO SIERRA Rep #:[id number] : 1950 74 From: Shilpa Contreras MD PCP: Dr. Daija Morton MD Status:ADM I N Location: [place] [id number] HPI - General General Date of Admission: 12/13/24 Date of Service: 12/13/24 Chief Complaint: Dyspnea, wheezing. HPI Narrative The patient is a 74 y/o M w/ PMHx: Former EtOH abuse, PAD s/p peripheral PCI, PAF reporting that he is on chronic Coumadin therapy, HTN, HLD, Chronic anemia/Fe deficiency anemia, COPD/Asthma w/ Chronic Hypoxic Respiratory Failure (2L NC), Seizure disorder, CKD stage III unclear subtype or GFR trending, GERD, BPH with obstructive pathology, Anxiety and depression, PJ, Tobacco use who presents to the [facility] ED on 12/13/2024 with history of worsening dyspnea over the last 40 hours with increasing fatigue, malaise, severe wheezing and tightness normally on 2 L oxygen supplementation however today visiting nurse presented and evaluated him with noted increased hypoxia prompting increase up to 4 L with complaint of cough occasionally productive with no fevers or chills prompting referral to the ED to be cautious. Workup in the ED included T90.3, heart rate 65, BP initially 226/90, respiratory rate 22, initially under percent on room air transiently requiring 3.5 L nasal cannula noted to be at 100% on room air, most recent repeat vitals T97.9 Temporal, heartrate 72, BP 185/72, respiratory rate 22, 98% on supplemental oxygen, CBC with WBC 5.9, hemoglobin 0.5, MCV 90.4, platelet 299 without marked shift, INR 0.9, BMP with glucose 102 otherwise unremarkable, BUN/creatinine 12/1.11, GFR 69, chest x-ray with persistent COPD type changes with no acute cardiopulmonary findings, rapid SARS COVID/influenza/RSV PCR negative. In the ED patient administered DuoNeb therapy and Solu-Medrol 125 mg IV x 1. Blood culture x 2 pending per ED. given appearance in the ED with increased work of breathing ongoing, significant tightness, wheezing and evidence of some respiratory distress component requested ABG and will trial BiPAP. [facility] Medical History Weakness Debility Failure to thrive Compression fx, lumbar spine Hypertension Falls Hypertension [...] 70 mg tablet 70 mg PO QWEEK OSTEOPROSIS # 1 TAB 11/30/21 03/28/23 Rx metoprolol tartrate 25 mg tablet 25 mg PO DAILY Blood pressure 03/30/23 03/28/23 History sennosides 8.6 mg-docusate sodium 2 tab PO BID PRN PRN Constipation 04/04/23 Unknown Rx 50 mg tablet (Stool #0 tabs Softener-Stimulant Laxative) albuterol sulfate 90 mcg/actuation 1 puff inhalation Q 8H SOB 08/22/23 Unknown History aerosol inhaler carbamazepine 200 mg 200 mg PO Q12H SEIZURES 11/09 Unknown History tablet,extended release,12 hr cholecalciferol (vitamin D3) 50 50 mcg PO DAILY SUPPLE MENT 08/22/23 Unknown History mcg (2,000 unit) tablet sertraline 100 mg tablet 100 mg PO DAILY DEPRESSION 0 08/22/23 Unknown History ergocalciferol (vitamin D2) 1,250 1,250 mcg PO Q7D SUP PLEMENT #0 caps 04/10/24 Unknown Rx mcg (50,000 unit) capsule (Vitamin D2) clonidine HCl 0.1 mg tablet 0.1 mg PO TID HTN #0 tabs 09/02/24 Unknown Rx dextromethorphan-guaifenesin ER 60 1 tab PO BID COUGH 7 days #14 tabs 09/02/24 Unknown Rx mg-1,200 mg tab,extend release,12hr nicotine 14 mg/24 hr daily 14 mg transdermal DAILY MARY OTINE 09/02/24 Unknown Rx transdermal patch 28 days #28 ea prednisone 20 mg tablet 40 mg (2 x 20 mg) PO BREAKFA ST 1 09/02/24 Unknown Rx day #2 tabs acetaminophen 500 mg tablet 1,000 mg PO Q8 PRN fever o r pain 12/13/24 Unknown History albuterol sulfate 2.5 mg/3 mL 2.5 mg continuous nebuli zation 12/13/24 12/13/24 History (0.083 %) solution for nebulization DAILY SHORTNESS OF BREATH clonidine 0.2 mg/24 hr weekly 1 patch topical QWEEK BL OOD 12/13/24 Unknown History transdermal patch PRESSURE gabapentin 100 mg capsule 100 mg PO DAILY PAIN 5 Unknown History Allergy/AdvReac Type Severity Reaction Status Date / Time No Known Allergies Allergy Verified 04/06/24 11:12 Family History (Updated 12/13/24 @ 20:[address] Shilpa Contreras MD) Mother Heart disease CVA (cerebral vascular accident) Hypertension Father Heart disease CVA (cerebral vascular accident) Hypertension Surgical History S/P arterial stent History of appendectomy Social History (Updated 12/13/24 @ 20:[address] Shilpa Contreras MD) household members: family housing: other details: [facility] 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 Smoking Status: Current every day smoker tobacco type: cigarettes Smoking packsper day: 1 Smoking cigarettes per day: 20.0 alcohol intake: former details: Former alcoholic quit several years ago substance use type: does not use caffeine: Yes Type: coffee Number of servings: 3 ROS ROS Narrative Admission Review of Systems: CONSTITUTIONAL: No weight loss, fever, chills, + weakness or fatigue. HEENT: Eyes: No visual loss, blurred vision, double vision or yellow sclerae. Ears, Nose, Throat: No hearing loss, sneezing, congestion, runny nose or sore throat. SKIN: No rash or itching, lesions, wounds except + occasional stage ecchymoses, abrasions. CARDIOVASCULAR: No chest pain, chest pressure or chest discomfort, palpitations,edema, orthopnea, syncopal events. RESPIRATORY: + Dyspnea, chest tightness, productive cough intermittently, wheezing. No hemoptysis. GASTROINTESTINAL: + Lack of appetite/anorexia. No nausea, vomiting or diarrhea,abdominal pain, melena, BRBPR. GENITOURINARY: No dysuria, frequency, urgency or retention. NEUROLOGICAL: + Seizure disorder. No headache, dizziness, syncope, paralysis, ataxia, numbness or tingling in the extremities, focal weakness, change in bowelor bladder control. MUSCULOSKELETAL: + muscle, back pain, joint pain or stiffness. HEMATOLOGIC: + Chronic anemia, easy bleeding/bruising. LYMPHATICS: No enlarged nodes. No history of splenectomy. PSYCHIATRIC: + History of anxiety and depression. ENDOCRINOLOGIC: No reports of sweating, cold or heat intolerance. No polyuria orpolydipsia. ALLERGIES: + History of asthma. Vital Signs Vital Signs Vital Signs: 12/13/24 17:46 12/13/24 17:49 12/13/24 18:10 Temperature 98.3 F Temperature Source Temporal Pulse Rate 65 Respiratory Rate 22 H Respiratory Effort Short of Breath Respiratory Depth Shallow Respiratory Pattern Tachypnea Blood Pressure 226/90 H Blood Pressure Mean 135 Pulse Ox 100 100 Oxygen Delivery Method Room Air Nasal Cannula Nasal Cannula Oxygen Flow Rate (L/min) 3 3.5 12/13/24 18:10 12/13/24 18:46 12/13/24 18:48 Temperature 97.8 F Temperature Source Temporal Pulse Rate 63 80 79 Respiratory Rate 24 H 27 H 30 H Respiratory Effort Respiratory Depth Respiratory Pattern Tachypnea Blood Pressure 212/84 H 212/84 H Blood Pressure Mean 126 126 Pulse Ox 100 99 Oxygen Delivery Method Nasal Cannula Room Air Oxygen Flow Rate (L/min) 12/13/24 19:00 Temperature 97.9 F Temperature Source Temporal Pulse Rate 72 Respiratory Rate 22 H Respiratory Effort Respiratory Depth Respiratory Pattern Blood Pressure 185/72 H Blood Pressure Mean 109 Pulse Ox 98 Oxygen Delivery Method Nasal Cannula Oxygen Flow Rate (L/min) Weight Weight: 160 lb 0.889 oz Body Mass Index (BMI) 24.3 Physical Exam Narrative Physical Examination: General: Awake, alert, oriented x 3 and cooperative, seated upright in ED bed, some conversational dyspnea noted, accessory muscle usage, evidence of respiratory distress. Skin: Normal color, normal turgor, no icterus, no cyanosis except occasional stage ecchymoses, abrasion. HEENT: AT/NC, EOMI with right pupil atypical size/shape, dry MM, no carotid bruits or JVD noted. Lungs: Severely diminished, tight, greater bases, soft end expiratory wheezing, increased work of breathing evident, accessory muscle usage evident, respiratorydistress evident, no obvious rhonchi or rales. Heart: Regular rate and rhythm; no gallop, rub audible. Abdomen: Soft, NTTP, ND, mildly distant normal BS, no appreciated HSM. Extremities: No cyanosis, no clubbing, no significant distal edema noted. Neurological: Patient awake, alert, oriented as noted, cognitive function intact; pupils equally reactive to light and accommodation, cranial nerves grossly normal with as noted right pupil atypical size/shape, moving all 4 extremities, no focal deficits, strength severely globally decreased secondary to acute presentation with respiratory distress per Psychiatric: Affect appears fatigued, evident respiratory distress as noted, no acute evidence of depressive or anxiety feelings but does have underlying history. Results Lab / Micro Data 12/13/24 18:26 12/13/24 18:26 Labs: Laboratory Results - last 24 hr 12/13/24 18:26: WBC 5.9, RBC 4.15 L, Hgb 11.5 L, Hct 37.5 L, MCV 90.4, MCH 27.7,MCHC 30.7 L, RDW Std Deviation 44.8 H, RDW Coeff of Aly 13.7, Plt Count 299, MPV9.7, Immature Gran % (Auto) 0.300, Neut % (Auto) 67.3, Lymph % (Auto) 19.5, Elliott% (Auto) 8.9, Eos % (Auto) 3.0, Baso % (Auto) 1.0, Absolute Neuts (auto) 4.0, Absolute Lymphs (auto) 1.16, Nucleated RBC % 0, PT 12.5, INR 0.9, Sodium 141, Potassium 3.7, Chloride 104, Carbon Dioxide 24.4, Anion Gap 13, BUN 12, Creatinine 1.11, Estim Creat Clear Calc 55.63, Est GFR (MDRD) Non-Af 69, BUN/Creatinine Ratio 11.0, Glucose 102 H, Calcium 9.7 Micro: Microbiology 12/13/24 18:26 Mucosa - Nose SARS-CoV-2, Influenza & RSV (PCR) - Final Imaging Radiology Impression Chest X-Ray 12/13/24 18:39 IMPRESSION: No significant change since last exam. Reading Location: [facility] Assessment & Plan Assessment/Plan (1) COPD exacerbation: PLAN: Plan The patient is a 74 y/o M w/ PMHx: Former EtOH abuse, PAD s/p peripheral PCI, PAF reporting that he is on chronic Coumadin therapy, HTN, HLD, Chronic anemia/Fe deficiency anemia, COPD/Asthma w/ Chronic Hypoxic Respiratory Failure (2L NC), Seizure disorder, CKD stage III unclear subtype or GFR trending, GERD, BPH with obstructive pathology, Anxiety and depression, PJ, Tobacco use who presents to the [facility] ED on 12/13/2024 with history of worsening dyspnea over the last 40 hours with increasing fatigue, malaise, severe wheezing and tightness normally on 2 L oxygen supplementation however today visiting nurse presented and evaluated him with noted increased hypoxia prompting increase up to 4 L with complaint of cough occasionally productive with no fevers or chills prompting referral to the ED to be cautious. #1. Acute on Chronic Hypoxic Respiratory Failure secondary to Acute on Chronic COPD/Asthma exacerbation: Will admit to PCU given planned BiPAP usage, will obtain ABG, once able to transition off BiPAP will wean oxygen as tolerated to home supplementation level previously noted at 2 L, will maintain on ATC duonebs, PRN albuterol, IV methylprednisolone, HOB, IS parameters, will obtain sputum Cx, respiratory viral panel, procalcitonin, will hold on immediately abx therapy but low threshold to add if appropriate. #2. Hypertension, uncontrolled suspected secondary to #1 possibly missing some of his medication on day of presentation: Continue home regimen including clonidine, losartan, metoprolol, nifedipine, PRN hydralazine. #3. Chronic Kidney Disease Stage II per GFR trending: Admission BUN/Cr 12/1.11,GFR 69, baseline renal function 1.1-1.2, repeat BMP in AM. #4. Chronic normocytic anemia/iron deficient anemia: Hemoglobin 0.5, MCV 90.4, baseline hemoglobin noted to vacillate however does range 11-12 but has previously also been in the 13-14 range, most recently 12/02/2024 hemoglobin 11.1, continue to trend. #5. PAF: Will continue patient home metoprolol regimen, noted that he is on Coumadin but clarified to be certain his INR is 0.9, we will continue to trend. #6. Hyperlipidemia: Will continue patient on statin therapy. #7. Anxiety and depression: Will continue patient home sertraline and mirtazapine home regimen #8. BPH with obstructive pathology: Will continue patient on Flomax and finasteride regimen, monitor for retention. #9. GERD: Will continue patient on PPI. #10. Seizure disorder: Continue home carbamazepine regimen. #11. Tobacco Abuse: Encouraged cessation, inpatient consultation per RT, NR if desired. #12. PJ: Noncompliant with PAP therapy, ABG requested, trialing BIPAP as noted. #13. PAD: Will continue patient's Plavix, statin, hypertensive regimen as noted, clarifying is he stating that he is on Coumadin but his INR is subtherapeutic. #14. Former alcohol abuse: Encourage continued sobriety. #15. DVT prophylaxis: Will continue Coumadin with INR trending however suspect patient has been noncompliant as INR upon presentation is 0.9. #16. CODE status: Patient healthcare power admitted attorneys and living will are not in place but he notes he would want his ex- Joseph to be his medical decision-maker if absolutely necessary. Discussed CODE status at length including difference between FULL code, DNR-CCA and DNR-CC status. Following discussions about the differences in these status, requested Full Code status. Advanced CarePlanning Face to Face Time: 16 minutes. Charges/Coding Visit Charges Inpatient E&M: 79873 Init Hosp L3 Procedures Hospitalists Procedures: 47830 Advncd Care Plan 30 Min 12/13/242049 <Electronically signed by Shilpa Contreras MD> Cosigner Signature (if applicable): CC: Dr. Shilpa Contreras MD; Dr. Daija Morton MD~ Signed [facility] Work Phone: [facility] Dis[facility] instructionsWW[facility] Work Phone: [facility] Dis[facility] instructionsWW[facility] Work Phone: Hospital Discharge instructionsWW[facility] Work Phone: [phone] Discharge instructionsWWright-[facility] Work Phone: [phone] Discharge instructionsWWright-[facility] Work Phone: Hospital Discharge instructionsWW[facility] Work Phone: Hospital Discharge instructions Additional Instructions Ice to your rib cage. Support your sore ribs with a pillow. Your chest x-ray did not show any broken ribs sometimes however there are small cracks in the ribs we cannot see on the x-ray. Ledyard for more severe pain. Otherwise use Tylenol. If you are using the pain medication Ledyard then do not use Tylenol with it. Follow-up with your doctor as needed. Keep the wounds on your forearms clean. Clean daily with soap and water. Patient apply antibiotic ointment. Watch for any signs of infection if seen follow-up.[facility] Work Phone: Hospital Discharge instructions Additional Instructions Please use the walker and follow-up with your primary care doctor.[facility] Work Phone: Progress note No data available for this section [facility] Reason for referral (narrative)* Outpatient Procedure (Routine) - Closed Specialty Diagnoses / Procedures Referred By Morris t Referred To [facility] Diagnoses COPD with chronic bronchitis (HCC) Procedures OXIMETRY WITH AMBULATION NONINVASIVE EAR/PULSE OXIMETRY MULTIPLE DETER Emilie Jauregui PA-C [address] [address] [facility] [address] [place] [id number] Referral ID Status Reason Start Date Expiration Date V isits Requested Visits Authorized [id number] Closed Auto-Generate d Referral 11/05/2021 06/18/2022 1 1 * Outpatient Procedure (Routine) - Closed Specialty Diagnoses / Procedures Referred By Contac t Referred To [facility] Diagnoses COPD with chronic bronchitis (HCC) Procedures LUNG DIFFUSION CAPACITY (DLCO) DIFFUSING CAPACITY Emilie Jauregui PA-C [address] [place] [id number] [facility] [address] [place] [id number] Referral ID Status Reason Start Date Expiration Date V isits Requested Visits Authorized [id number] Closed Auto-Generate d Referral 11/05/2021 06/18/2022 1 1 * Outpatient Procedure (Routine) - Closed Specialty Diagnoses / Procedures Referred By Contac t Referred To [facility] Diagnoses COPD with chronic bronchitis (HCC) Procedures SPIROMETRY BASELINE ONLY SPMTRY W/VC EXPIRATORY BRIAN W/WO MXML VOL VNTJ Emilie Jauregui PA-C [address] [place] [address] [facility] [address] [place] [id number] Referral ID Status Reason Start Date Expiration Date V isits Requested Visits Authorized [id number] Closed Auto-Generate d Referral 11/05/2021 06/18/2022 1 1 [facility] for referral (narrative)* Outpatient Procedure (Routine) - Pending Review Specialty Diagnoses / Procedures Referred By Contac t Referred To [facility] Diagnoses Essential hypertension Chest pain, unspecified type Procedures ECG COMPLETE ECG ROUTINE ECG W/LEAST 12 LDS W/I&R Anjel Braga APRN.CNP [address] [place] [address] [facility] [address] [address] Referral ID Status Reason Start Date Expiration Date Visits Requested Visits Authorized [id number] Pending Review Auto-Generat ed Referral 01/28/2022 01/28/2023 1 1 [facility] for referral (narrative)* Outpatient Procedure (Routine) - Authorized Specialty Diagnoses / Procedures Referred By Contac t Referred To Contact [facility] [place] Diagnoses PVD (peripheral vascular disease) (HCC) Procedures PVR LEG COREY VAS LAB PVR LEG COREY VAS LAB NON-INVASIVE PHYSIOLOGIC STUDY EXTREMITY [address] [place] [address] [place] [address] [address] [place] [address] Referral ID Status Reason Start Date Expiration Date Visits Requested Visits Authorized [id number] Authorized Auto-Generat ed Referral 01/31/2022 01/31/2023 1 1 [facility] for referral (narrative)* Outpatient Procedure (Routine) - Authorized Specialty Diagnoses / Procedures Referred By Contac t Referred To Contact [facility] [place] Diagnoses Peripheral arterial disease (HCC) PVD (peripheral vascular disease) (HCC) Procedures PVR LEG COREY VAS LAB NON-INVASIVE PHYSIOLOGIC STUDY EXTREMITY [address] [place] [address] [place] [address] [address] [place] [address] Referral ID Status Reason Start Date Expiration Date Visits Requested Visits Authorized [id number] Authorized Auto-Generat ed Referral 12/26/2022 12/26/2023 1 1 [facility] for referral (narrative)* Outpatient Procedure (Routine) - Authorized Specialty Diagnoses / Procedures Referred By Contac t Referred To Contact [facility] [place] Diagnoses Peripheral arterial disease (HCC) Procedures PVR LEG COREY VAS LAB NON-INVASIVE PHYSIOLOGIC STUDY EXTREMITY [address] [place] [address] [place] [address] [address] [place] [address] Referral ID Status Reason Start Date Expiration Date Visits Requested Visits Authorized [id number] Authorized Auto-Generat ed Referral 01/02/2024 01/01/2025 1 1 [facility] for referral (narrative)No reason for referral information availableWWright-Patterson [facility] Work Phone: Summary Purpose Family History Relationship [...] Date/T bam Not Specified Cardiac disease Unknown Relationship Condition Age at Onset Recorded Date/T bam mother Cardiac disease Unknown Cerebrovascular accident (CVA) Unknown Hypertension Unknown father Cardiac disease Unknown Advance Directives Documents on File Type Date Recorded 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 Advance Directive(s) 10/24/2019 3:38 PM [...] Documents on File Type Date Recorded 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 Advance Directive(s) 08/29/2021 6:53 PM Advance Directive(s) 08/22/2021 7:53 PM Advance Directive(s) 04/10/2020 4:06 PM Advance Directive(s) 12/17/2019 10:49 AM Advance Directive(s) 10/24/2019 3:38 PM Advance Directive(s) 10/17/2019 9:43 AM Advance Directive(s) 10/08/2019 7:18 AM Advance Directive(s) 09/04/2019 1:38 PM Advance Directive(s) 02/07/2016 12:11 AM Advance Directive Response Recorded Date/ Time Name of Medical Power of Body Service Team Member eloina stephens e- ex August 12, 2021 1:39am Name of Medical Power of Body Service Team Member Joseph Burrell August 18, 2021 11:56pm Advance Directives Yes March 22, 2016 4:03pm Living Will No September 17, 2021 5:48pm Power of Body Service Team Member Yes September 17 5:48pm Advance Directive Response Recorded Date/ Time Name of Medical Power of Body Service Team Member eloina stephens e- ex August 12, 2021 1:39am Name of Medical Power of Body Service Team Member Joseph Burrell August 18, 2021 11:56pm Name of Medical Power of Body Service Team Member joseph burrell September 17, 2021 5:48pm Advance Directives Yes March 22, 2016 4:03pm Living Will No October 08, 2021 2:20pm Power of Body Service Team Member No October 08 2:20pm Documents on File Type Date Recorded 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 Advance Directive(s) 08/29/2021 6:53 PM [...] Date/ Time Name of Medical Power of Body Service Team Member eloina stephens e- ex August 12, 2021 1:39am Name of Medical Power of Body Service Team Member Joseph Burrell August 18, 2021 11:56pm Name of Medical Power of Body Service Team Member joseph burrell September 17, 2021 5:48pm Advance Directives Yes March 22, 2016 4:03pm Living Will Yes November 25, 2021 5 :33pm Power of Body Service Team Member Yes November 25, 2021 5:33pm Advance Directive Response Recorded Date/ Time Name of Medical Power of Body Service Team Member eloina stephens e- ex August 12, 2021 1:39am Name of Medical Power of Body Service Team Member Joseph Burrell August 18, 2021 11:56pm Name of Medical Power of Body Service Team Member joseph burrell September 17, 2021 5:48pm Advance Directives Yes March 22, 2016 4:03pm Living Will Yes November 25, 2021 1 1:06pm Power of Body Service Team Member No November 25, 2021 11:06pm Advance Directive Response Recorded Date/ Time Name of Medical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 Weakness August 27, 2024 6:2 2pm Chief Complaint [...] 9pm LABOWRK October 16, 2024 5:0 0am PRISON LAB WORK November 05, 2024 5:0 0am ACUTE ON CHRONIC HYPOXIA RF, COPD/ASTHMA EXAC December 13, 2024 8:07pm sob December 13, 2024 8:30 pm Reason for Visit Admit Date Acute diarrhea August 27, 2024 6:2 2pm Debility August 27, 2024 6:2 2pm Failure to thrive August 27, 2024 6:2 2pm Weakness August 27, 2024 6:2 2pm COPD exacerbation December 13, 2024 8:07 pm Chief Complaint Admit Date FAILURE TO [...] 9pm LABOWRK October 16, 2024 5:0 0am PRISON LAB WORK November 05, 2024 5:0 0am ACUTE ON CHRONIC HYPOXIA RF, COPD/ASTHMA EXAC December 13, 2024 8:07pm sob December 13, 2024 8:30 pm ACUTE ON CHRONIC HYPOXIA RF, COPD/ASTHMA EXAC December 14, 2024 8:10am ACUTE ON CHRONIC HYPOXIA RF, COPD/ASTHMA EXAC December 15, 2024 7:43am ACUTE ON CHRONIC HYPOXIA RF, COPD/ASTHMA EXAC December 16, 2024 11:37am Reason for Visit Admit Date Acute diarrhea August 27, 2024 6:2 2pm Debility August 27, 2024 6:2 2pm Failure to thrive August 27, 2024 6:2 2pm Weakness August 27, 2024 6:2 2pm Acute on chronic respiratory failure with hypoxia and hypercapnia December 13, 2024 8:07pm COPD exacerbation December 13, 2024 8:07 pm Chief Complaint Admit Date FAILURE TO [...] 9pm LABOWRK October 16, 2024 5:0 0am PRISON LAB WORK November 05, 2024 5:0 0am ACUTE ON CHRONIC HYPOXIA RF, COPD/ASTHMA EXAC December 13, 2024 8:07pm sob December 13, 2024 8:30 pm ACUTE ON CHRONIC HYPOXIA RF, COPD/ASTHMA EXAC December 14, 2024 8:10am ACUTE ON CHRONIC HYPOXIA RF, COPD/ASTHMA EXAC December 15, 2024 7:43am ACUTE ON CHRONIC HYPOXIA RF, COPD/ASTHMA EXAC December 16, 2024 11:37am STROKELIKE SYMPTOMS December 17, 2024 5:51p m Reason for Visit Admit Date Acute diarrhea August 27, 2024 6:2 2pm Debility August 27, 2024 6:2 2pm Failure to thrive August 27, 2024 6:2 2pm Weakness August 27, 2024 6:2 2pm Acute on chronic respiratory failure with hypoxia and hypercapnia December 13, 2024 8:07pm COPD exacerbation December 13, 2024 8:07 pm Aphasia December 17, 2024 5:51p m Facial droop December 17, 2024 5:51p m Acute on chronic respiratory failure with hypoxia and hypercapnia December 17, 2024 5:51pm COPD exacerbation December 17, 2024 5:51p m Hypertension December 17, 2024 5:51p m Health Concerns Infection Onset Date Last Indicated Resolved Time COVID-19 Rule-Out 08/21/2021 08/21/2021 08/21/2021 10:06 PM EST COVID-19 Rule-Out 08/27/2021 08/27/2021 08/27/2021 5:32 PM EST COVID-19 Rule-Out 09/03/2021 09/03/2021 09/03/2021 3:30 PM EDT Reason for Referral Specialty Diagnoses / Procedures Referred By Contac t Referred To Contact Ent - Otolaryngology Diagnoses Chronic sore throat Smoking Procedures CONSULT TO ENT OFFICE/OUTPATIENT [facility] 60 MINUTES Rebekah Luu PA-C [address] [place] [address] Referral ID Status Reason Start Date Expiration Date Visits Requested Visits Authorized [id number] Authorized PCP Requested Referral 11/21/2023 11/20/2024 1 1 Specialty Diagnoses / Procedures Referred By Contac t Referred To Contact Diagnoses COPD with chronic bronchitis (HCC) Rebekah Luu PA-C [address] [place] [address] Referral ID Status Reason Start Date Expiration Date Visits Re quested Visits Authorized [id number] Closed 1 1 Specialty Diagnoses / Procedures Referred By Contac t Referred To Contact Marquita Braga APRN.PATIENT SERVICES MANAGER [address] [place] [address] Referral ID Status Reason Start Date Expiration Date V isits Requested Visits Authorized [id number] Authorized 08/29/2022 06/18/2023 1 1 Specialty Diagnoses / Procedures Referred By Contac t Referred To Contact Harriett Albert APRN.REVIEW COORDINATOR [address] [place] [address] Referral ID Status Reason Start Date Expiration Date Visits Re quested Visits Authorized [id number] Closed 1 1 Specialty Diagnoses / Procedures Referred By Contac t Referred To Contact Gastroenterology Diagnoses Acute blood loss anemia Angiodysplasia of colon with hemorrhage Procedures CONSULT TO GASTROENTEROLOGY OFFICE/OUTPATIENT NEW HIGH MDM 60-74 MINUTES Harriett Albert APRN.REVIEW COORDINATOR [address] [place] [address] Referral ID Status Reason Start Date Expiration Date Visits Requested Visits Authorized [id number] Pending Review PCP Requested Referral 01/14/2022 01/14/2023 1 1 Specialty Diagnoses / Procedures Referred By Contchelo t Referred To Contact Anjel Braga APRN.PATIENT SERVICES MANAGER [address] [place] [address] Referral ID Status Reason Start Date Expiration Date Visits Re quested Visits Authorized [id number] Closed 1 1 Medications Administered Section Administered [...] section and content) DATE CREATED AUTHOR 01/09/2020 [facility] DATE CREATED AUTHOR AUTHOR'S ORGANIZ ATION 04/03/2020 [facility] DATE CREATED AUTHOR AUTHOR'S ORGANIZ ATION 04/11/2020 [facility] DATE CREATED AUTHOR AUTHOR'S ORGANIZ ATION 01/26/2022 [facility] DATE CREATED AUTHOR AUTHOR'S ORGANIZ ATION 07/16/2023 [facility] DATE CREATED AUTHOR AUTHOR'S ORGANIZ ATION 12/17/2024 [facility] DATE CREATED AUTHOR AUTHOR'S ORGANIZ ATION 12/17/2024 [facility] Comments (unrecognize d section and content) In the event this informatio n is protected by the Federal Confidentiality of Alcohol and Drug Abuse Patient Records regulations: The Federal rules restrict any use of the information to criminally investigate or prosecute any alcohol or drug abuse patient.[facility] the event this information is protected by the Federal Confidentiality of Alcohol and Drug Abuse Patient Records regulations: The Federal rules restrict any use of the information to criminally investigate or prosecute any alcohol or drug abuse patient.[facility] the event this information is protected by the Federal Confidentiality of Alcohol and Drug Abuse Patient Records regulations: The Federal rules restrict any use of the information to criminally investigate or prosecute any alcohol or drug abuse patient.[facility] the event this information is protected by the Federal Confidentiality of Alcohol and Drug Abuse Patient Records regulations: The Federal rules restrict any use of the information to criminally investigate or prosecute any alcohol or drug abuse patient.[facility] the event this information is protected by the Federal Confidentiality of Alcohol and Drug Abuse Patient Records regulations: The Federal rules restrict any use of the information to criminally investigate or prosecute any alcohol or drug abuse patient.[facility] the event this information is protected by the Federal Confidentiality of Alcohol and Drug Abuse Patient Records regulations: The Federal rules restrict any use of the information to criminally investigate or prosecute any alcohol or drug abuse patient.[facility]In the event this information is protected by the Federal Confidentiality of Alcohol and Drug Abuse Patient Records regulations: The Federal rules restrict any use of the information to criminally investigate or prosecute any alcohol or drug abuse patient.[facility] HospitalIn the event this information is protected by the Federal Confidentiality of Alcohol and Drug Abuse Patient Records regulations: The Federal rules restrict any use of the information to criminally investigate or prosecute any alcohol or drug abuse patient.[facility] HospitalIn the event this information is protected by the Federal Confidentiality of Alcohol and Drug Abuse Patient Records regulations: The Federal rules restrict any use of the information to criminally investigate or prosecute any alcohol or drug abuse patient.[facility] HospitalIn the event this information is protected by the Federal Confidentiality of Alcohol and Drug Abuse Patient Records regulations: The Federal rules restrict any use of the information to criminally investigate or prosecute any alcohol or drug abuse patient.[facility] HospitalIn the event this information is protected by the Federal Confidentiality of Alcohol and Drug Abuse Patient Records regulations: The Federal rules restrict any use of the information to criminally investigate or prosecute any alcohol or drug abuse patient.[facility] HospitalIn the event this information is protected by the Federal Confidentiality of Alcohol and Drug Abuse Patient Records regulations: The Federal rules restrict any use of the information to criminally investigate or prosecute any alcohol or drug abuse patient.[facility] HospitalIn the event this information is protected by the Federal Confidentiality of Alcohol and Drug Abuse Patient Records regulations: The Federal rules restrict any use of the information to criminally investigate or prosecute any alcohol or drug abuse patient.[facility] HospitalIn the event this information is protected by the Federal Confidentiality of Alcohol and Drug Abuse Patient Records regulations: The Federal rules restrict any use of the information to criminally investigate or prosecute any alcohol or drug abuse patient.[facility] HospitalIn the event this information is protected by the Federal Confidentiality of Alcohol and Drug Abuse Patient Records regulations: The Federal rules restrict any use of the information to criminally investigate or prosecute any alcohol or drug abuse patient.[facility] HospitalIn the event this information is protected by the Federal Confidentiality of Alcohol and Drug Abuse Patient Records regulations: The Federal rules restrict any use of the information to criminally investigate or prosecute any alcohol or drug abuse patient.[facility] HospitalIn the event this information is protected by the Federal Confidentiality of Alcohol and Drug Abuse Patient Records regulations: The Federal rules restrict any use of the information to criminally investigate or prosecute any alcohol or drug abuse patient.[facility] HospitalIn the event this information is protected by the Federal Confidentiality of Alcohol and Drug Abuse Patient Records regulations: The Federal rules restrict any use of the information to criminally investigate or prosecute any alcohol or drug abuse patient.[facility] HospitalIn the event this information is protected by the Federal Confidentiality of Alcohol and Drug Abuse Patient Records regulations: The Federal rules restrict any use of the information to criminally investigate or prosecute any alcohol or drug abuse patient.[facility] HospitalIn the event this information is protected by the Federal Confidentiality of Alcohol and Drug Abuse Patient Records regulations: The Federal rules restrict any use of the information to criminally investigate or prosecute any alcohol or drug abuse patient.[facility] HospitalIn the event this information is protected by the Federal Confidentiality of Alcohol and Drug Abuse Patient Records regulations: The Federal rules restrict any use of the information to criminally investigate or prosecute any alcohol or drug abuse patient.[facility] HospitalIn the event this information is protected by the Federal Confidentiality of Alcohol and Drug Abuse Patient Records regulations: The Federal rules restrict any use of the information to criminally investigate or prosecute any alcohol or drug abuse patient.[facility] HospitalIn the event this information is protected by the Federal Confidentiality of Alcohol and Drug Abuse Patient Records regulations: The Federal rules restrict any use of the information to criminally investigate or prosecute any alcohol or drug abuse patient.[facility] HospitalIn the event this information is protected by the Federal Confidentiality of Alcohol and Drug Abuse Patient Records regulations: The Federal rules restrict any use of the information to criminally investigate or prosecute any alcohol or drug abuse patient.[facility] HospitalIn the event this information is protected by the Federal Confidentiality of Alcohol and Drug Abuse Patient Records regulations: The Federal rules restrict any use of the information to criminally investigate or prosecute any alcohol or drug abuse patient.[facility] HospitalIn the event this information is protected by the Federal Confidentiality of Alcohol and Drug Abuse Patient Records regulations: The Federal rules restrict any use of the information to criminally investigate or prosecute any alcohol or drug abuse patient.[facility] HospitalIn the event this information is protected by the Federal Confidentiality of Alcohol and Drug Abuse Patient Records regulations: The Federal rules restrict any use of the information to criminally investigate or prosecute any alcohol or drug abuse patient.[facility] HospitalIn the event this information is protected by the Federal Confidentiality of Alcohol and Drug Abuse Patient Records regulations: The Federal rules restrict any use of the information to criminally investigate or prosecute any alcohol or drug abuse patient.[facility] HospitalIn the event this information is protected by the Federal Confidentiality of Alcohol and Drug Abuse Patient Records regulations: The Federal rules restrict any use of the information to criminally investigate or prosecute any alcohol or drug abuse patient.[facility] HospitalIn the event this information is protected by the Federal Confidentiality of Alcohol and Drug Abuse Patient Records regulations: The Federal rules restrict any use of the information to criminally investigate or prosecute any alcohol or drug abuse patient.[facility] HospitalIn the event this information is protected by the Federal Confidentiality of Alcohol and Drug Abuse Patient Records regulations: The Federal rules restrict any use of the information to criminally investigate or prosecute any alcohol or drug abuse patient.[facility] HospitalIn the event this information is protected by the Federal Confidentiality of Alcohol and Drug Abuse Patient Records regulations: The Federal rules restrict any use of the information to criminally investigate or prosecute any alcohol or drug abuse patient.[facility] HospitalIn the event this information is protected by the Federal Confidentiality of Alcohol and Drug Abuse Patient Records regulations: The Federal rules restrict any use of the information to criminally investigate or prosecute any alcohol or drug abuse patient.[facility] HospitalIn the event this information is protected by the Federal Confidentiality of Alcohol and Drug Abuse Patient Records regulations: The Federal rules restrict any use of the information to criminally investigate or prosecute any alcohol or drug abuse patient.[facility] HospitalIn the event this information is protected by the Federal Confidentiality of Alcohol and Drug Abuse Patient Records regulations: The Federal rules restrict any use of the information to criminally investigate or prosecute any alcohol or drug abuse patient.[facility] HospitalIn the event this information is protected by the Federal Confidentiality of Alcohol and Drug Abuse Patient Records regulations: The Federal rules restrict any use of the information to criminally investigate or prosecute any alcohol or drug abuse patient.[facility] HospitalIn the event this information is protected by the Federal Confidentiality of Alcohol and Drug Abuse Patient Records regulations: The Federal rules restrict any use of the information to criminally investigate or prosecute any alcohol or drug abuse patient.[facility] HospitalIn the event this information is protected by the Federal Confidentiality of Alcohol and Drug Abuse Patient Records regulations: The Federal rules restrict any use of the information to criminally investigate or prosecute any alcohol or drug abuse patient.[facility] HospitalIn the event this information is protected by the Federal Confidentiality of Alcohol and Drug Abuse Patient Records regulations: The Federal rules restrict any use of the information to criminally investigate or prosecute any alcohol or drug abuse patient.[facility] HospitalIn the event this information is protected by the Federal Confidentiality of Alcohol and Drug Abuse Patient Records regulations: The Federal rules restrict any use of the information to criminally investigate or prosecute any alcohol or drug abuse patient.[facility] HospitalIn the event this information is protected by the Federal Confidentiality of Alcohol and Drug Abuse Patient Records regulations: The Federal rules restrict any use of the information to criminally investigate or prosecute any alcohol or drug abuse patient.[facility] HospitalIn the event this information is protected by the Federal Confidentiality of Alcohol and Drug Abuse Patient Records regulations: The Federal rules restrict any use of the information to criminally investigate or prosecute any alcohol or drug abuse patient.[facility] HospitalIn the event this information is protected by the Federal Confidentiality of Alcohol and Drug Abuse Patient Records regulations: The Federal rules restrict any use of the information to criminally investigate or prosecute any alcohol or drug abuse patient.[facility] HospitalIn the event this information is protected by the Federal Confidentiality of Alcohol and Drug Abuse Patient Records regulations: The Federal rules restrict any use of the information to criminally investigate or prosecute any alcohol or drug abuse patient.[facility] HospitalIn the event this information is protected by the Federal Confidentiality of Alcohol and Drug Abuse Patient Records regulations: The Federal rules restrict any use of the information to criminally investigate or prosecute any alcohol or drug abuse patient.[facility] HospitalIn the event this information is protected by the Federal Confidentiality of Alcohol and Drug Abuse Patient Records regulations: The Federal rules restrict any use of the information to criminally investigate or prosecute any alcohol or drug abuse patient.[facility] HospitalIn the event this information is protected by the Federal Confidentiality of Alcohol and Drug Abuse Patient Records regulations: The Federal rules restrict any use of the information to criminally investigate or prosecute any alcohol or drug abuse patient.[facility] HospitalIn the event this information is protected by the Federal Confidentiality of Alcohol and Drug Abuse Patient Records regulations: The Federal rules restrict any use of the information to criminally investigate or prosecute any alcohol or drug abuse patient.[facility] HospitalIn the event this information is protected by the Federal Confidentiality of Alcohol and Drug Abuse Patient Records regulations: The Federal rules restrict any use of the information to criminally investigate or prosecute any alcohol or drug abuse patient.[facility] HospitalIn the event this information is protected by the Federal Confidentiality of Alcohol and Drug Abuse Patient Records regulations: The Federal rules restrict any use of the information to criminally investigate or prosecute any alcohol or drug abuse patient.[facility] HospitalIn the event this information is protected by the Federal Confidentiality of Alcohol and Drug Abuse Patient Records regulations: The Federal rules restrict any use of the information to criminally investigate or prosecute any alcohol or drug abuse patient.[facility] HospitalIn the event this information is protected by the Federal Confidentiality of Alcohol and Drug Abuse Patient Records regulations: The Federal rules restrict any use of the information to criminally investigate or prosecute any alcohol or drug abuse patient.[facility] HospitalIn the event this information is protected by the Federal Confidentiality of Alcohol and Drug Abuse Patient Records regulations: The Federal rules restrict any use of the information to criminally investigate or prosecute any alcohol or drug abuse patient.[facility] HospitalIn the event this information is protected by the Federal Confidentiality of Alcohol and Drug Abuse Patient Records regulations: The Federal rules restrict any use of the information to criminally investigate or prosecute any alcohol or drug abuse patient.[facility] HospitalIn the event this information is protected by the Federal Confidentiality of Alcohol and Drug Abuse Patient Records regulations: The Federal rules restrict any use of the information to criminally investigate or prosecute any alcohol or drug abuse patient.[facility] HospitalIn the event this information is protected by the Federal Confidentiality of Alcohol and Drug Abuse Patient Records regulations: The Federal rules restrict any use of the information to criminally investigate or prosecute any alcohol or drug abuse patient.[facility] HospitalIn the event this information is protected by the Federal Confidentiality of Alcohol and Drug Abuse Patient Records regulations: The Federal rules restrict any use of the information to criminally investigate or prosecute any alcohol or drug abuse patient.[facility] HospitalIn the event this information is protected by the Federal Confidentiality of Alcohol and Drug Abuse Patient Records regulations: The Federal rules restrict any use of the information to criminally investigate or prosecute any alcohol or drug abuse patient.[facility] HospitalIn the event this information is protected by the Federal Confidentiality of Alcohol and Drug Abuse Patient Records regulations: The Federal rules restrict any use of the information to criminally investigate or prosecute any alcohol or drug abuse patient.[facility] HospitalIn the event this information is protected by the Federal Confidentiality of Alcohol and Drug Abuse Patient Records regulations: The Federal rules restrict any use of the information to criminally investigate or prosecute any alcohol or drug abuse patient.[facility] HospitalIn the event this information is protected by the Federal Confidentiality of Alcohol and Drug Abuse Patient Records regulations: The Federal rules restrict any use of the information to criminally investigate or prosecute any alcohol or drug abuse patient.[facility] HospitalIn the event this information is protected by the Federal Confidentiality of Alcohol and Drug Abuse Patient Records regulations: The Federal rules restrict any use of the information to criminally investigate or prosecute any alcohol or drug abuse patient.[facility] HospitalIn the event this information is protected by the Federal Confidentiality of Alcohol and Drug Abuse Patient Records regulations: The Federal rules restrict any use of the information to criminally investigate or prosecute any alcohol or drug abuse patient.[facility] HospitalIn the event this information is protected by the Federal Confidentiality of Alcohol and Drug Abuse Patient Records regulations: The Federal rules restrict any use of the information to criminally investigate or prosecute any alcohol or drug abuse patient.[facility] HospitalIn the event this information is protected by the Federal Confidentiality of Alcohol and Drug Abuse Patient Records regulations: The Federal rules restrict any use of the information to criminally investigate or prosecute any alcohol or drug abuse patient.[facility] HospitalIn the event this information is protected by the Federal Confidentiality of Alcohol and Drug Abuse Patient Records regulations: The Federal rules restrict any use of the information to criminally investigate or prosecute any alcohol or drug abuse patient.[facility] HospitalIn the event this information is protected by the Federal Confidentiality of Alcohol and Drug Abuse Patient Records regulations: The Federal rules restrict any use of the information to criminally investigate or prosecute any alcohol or drug abuse patient.[facility] HospitalIn the event this information is protected by the Federal Confidentiality of Alcohol and Drug Abuse Patient Records regulations: The Federal rules restrict any use of the information to criminally investigate or prosecute any alcohol or drug abuse patient.[facility] HospitalIn the event this information is protected by the Federal Confidentiality of Alcohol and Drug Abuse Patient Records regulations: The Federal rules restrict any use of the information to criminally investigate or prosecute any alcohol or drug abuse patient.[facility] HospitalIn the event this information is protected by the Federal Confidentiality of Alcohol and Drug Abuse Patient Records regulations: The Federal rules restrict any use of the information to criminally investigate or prosecute any alcohol or drug abuse patient.[facility] HospitalIn the event this information is protected by the Federal Confidentiality of Alcohol and Drug Abuse Patient Records regulations: The Federal rules restrict any use of the information to criminally investigate or prosecute any alcohol or drug abuse patient.[facility] HospitalIn the event this information is protected by the Federal Confidentiality of Alcohol and Drug Abuse Patient Records regulations: The Federal rules restrict any use of the information to criminally investigate or prosecute any alcohol or drug abuse patient.[facility] HospitalIn the event this information is protected by the Federal Confidentiality of Alcohol and Drug Abuse Patient Records regulations: The Federal rules restrict any use of the information to criminally investigate or prosecute any alcohol or drug abuse patient.[facility] HospitalIn the event this information is protected by the Federal Confidentiality of Alcohol and Drug Abuse Patient Records regulations: The Federal rules restrict any use of the information to criminally investigate or prosecute any alcohol or drug abuse patient.[facility] HospitalIn the event this information is protected by the Federal Confidentiality of Alcohol and Drug Abuse Patient Records regulations: The Federal rules restrict any use of the information to criminally investigate or prosecute any alcohol or drug abuse patient.[facility] HospitalIn the event this information is protected by the Federal Confidentiality of Alcohol and Drug Abuse Patient Records regulations: The Federal rules restrict any use of the information to criminally investigate or prosecute any alcohol or drug abuse patient.[facility] HospitalIn the event this information is protected by the Federal Confidentiality of Alcohol and Drug Abuse Patient Records regulations: The Federal rules restrict any use of the information to criminally investigate or prosecute any alcohol or drug abuse patient.[facility] HospitalIn the event this information is protected by the Federal Confidentiality of Alcohol and Drug Abuse Patient Records regulations: The Federal rules restrict any use of the information to criminally investigate or prosecute any alcohol or drug abuse patient.[facility] HospitalIn the event this information is protected by the Federal Confidentiality of Alcohol and Drug Abuse Patient Records regulations: The Federal rules restrict any use of the information to criminally investigate or prosecute any alcohol or drug abuse patient.[facility] HospitalIn the event this information is protected by the Federal Confidentiality of Alcohol and Drug Abuse Patient Records regulations: The Federal rules restrict any use of the information to criminally investigate or prosecute any alcohol or drug abuse patient.[facility] HospitalIn the event this information is protected by the Federal Confidentiality of Alcohol and Drug Abuse Patient Records regulations: The Federal rules restrict any use of the information to criminally investigate or prosecute any alcohol or drug abuse patient.[facility] HospitalIn the event this information is protected by the Federal Confidentiality of Alcohol and Drug Abuse Patient Records regulations: The Federal rules restrict any use of the information to criminally investigate or prosecute any alcohol or drug abuse patient.[facility] HospitalIn the event this information is protected by the Federal Confidentiality of Alcohol and Drug Abuse Patient Records regulations: The Federal rules restrict any use of the information to criminally investigate or prosecute any alcohol or drug abuse patient.[facility] HospitalIn the event this information is protected by the Federal Confidentiality of Alcohol and Drug Abuse Patient Records regulations: The Federal rules restrict any use of the information to criminally investigate or prosecute any alcohol or drug abuse patient.[facility] HospitalIn the event this information is protected by the Federal Confidentiality of Alcohol and Drug Abuse Patient Records regulations: The Federal rules restrict any use of the information to criminally investigate or prosecute any alcohol or drug abuse patient.[facility] HospitalIn the event this information is protected by the Federal Confidentiality of Alcohol and Drug Abuse Patient Records regulations: The Federal rules restrict any use of the information to criminally investigate or prosecute any alcohol or drug abuse patient.[facility] HospitalIn the event this information is protected by the Federal Confidentiality of Alcohol and Drug Abuse Patient Records regulations: The Federal rules restrict any use of the information to criminally investigate or prosecute any alcohol or drug abuse patient.[facility] HospitalIn the event this information is protected by the Federal Confidentiality of Alcohol and Drug Abuse Patient Records regulations: The Federal rules restrict any use of the information to criminally investigate or prosecute any alcohol or drug abuse patient.[facility] HospitalIn the event this information is protected by the Federal Confidentiality of Alcohol and Drug Abuse Patient Records regulations: The Federal rules restrict any use of the information to criminally investigate or prosecute any alcohol or drug abuse patient.[facility] HospitalIn the event this information is protected by the Federal Confidentiality of Alcohol and Drug Abuse Patient Records regulations: The Federal rules restrict any use of the information to criminally investigate or prosecute any alcohol or drug abuse patient.[facility] HospitalIn the event this information is protected by the Federal Confidentiality of Alcohol and Drug Abuse Patient Records regulations: The Federal rules restrict any use of the information to criminally investigate or prosecute any alcohol or drug abuse patient.[facility] HospitalIn the event this information is protected by the Federal Confidentiality of Alcohol and Drug Abuse Patient Records regulations: The Federal rules restrict any use of the information to criminally investigate or prosecute any alcohol or drug abuse patient.[facility] HospitalIn the event this information is protected by the Federal Confidentiality of Alcohol and Drug Abuse Patient Records regulations: The Federal rules restrict any use of the information to criminally investigate or prosecute any alcohol or drug abuse patient.[facility] HospitalIn the event this information is protected by the Federal Confidentiality of Alcohol and Drug Abuse Patient Records regulations: The Federal rules restrict any use of the information to criminally investigate or prosecute any alcohol or drug abuse patient.[facility] HospitalIn the event this information is protected by the Federal Confidentiality of Alcohol and Drug Abuse Patient Records regulations: The Federal rules restrict any use of the information to criminally investigate or prosecute any alcohol or drug abuse patient.[facility] HospitalIn the event this information is protected by the Federal Confidentiality of Alcohol and Drug Abuse Patient Records regulations: The Federal rules restrict any use of the information to criminally investigate or prosecute any alcohol or drug abuse patient.[facility] HospitalIn the event this information is protected by the Federal Confidentiality of Alcohol and Drug Abuse Patient Records regulations: The Federal rules restrict any use of the information to criminally investigate or prosecute any alcohol or drug abuse patient.[facility] HospitalIn the event this information is protected by the Federal Confidentiality of Alcohol and Drug Abuse Patient Records regulations: The Federal rules restrict any use of the information to criminally investigate or prosecute any alcohol or drug abuse patient.[facility] HospitalIn the event this information is protected by the Federal Confidentiality of Alcohol and Drug Abuse Patient Records regulations: The Federal rules restrict any use of the information to criminally investigate or prosecute any alcohol or drug abuse patient.[facility] HospitalIn the event this information is protected by the Federal Confidentiality of Alcohol and Drug Abuse Patient Records regulations: The Federal rules restrict any use of the information to criminally investigate or prosecute any alcohol or drug abuse patient.[facility] HospitalIn the event this information is protected by the Federal Confidentiality of Alcohol and Drug Abuse Patient Records regulations: The Federal rules restrict any use of the information to criminally investigate or prosecute any alcohol or drug abuse patient.[facility] HospitalIn the event this information is protected by the Federal Confidentiality of Alcohol and Drug Abuse Patient Records regulations: The Federal rules restrict any use of the information to criminally investigate or prosecute any alcohol or drug abuse patient.[facility] HospitalIn the event this information is protected by the Federal Confidentiality of Alcohol and Drug Abuse Patient Records regulations: The Federal rules restrict any use of the information to criminally investigate or prosecute any alcohol or drug abuse patient.[facility] HospitalIn the event this information is protected by the Federal Confidentiality of Alcohol and Drug Abuse Patient Records regulations: The Federal rules restrict any use of the information to criminally investigate or prosecute any alcohol or drug abuse patient.[facility] HospitalIn the event this information is protected by the Federal Confidentiality of Alcohol and Drug Abuse Patient Records regulations: The Federal rules restrict any use of the information to criminally investigate or prosecute any alcohol or drug abuse patient.[facility] HospitalIn the event this information is protected by the Federal Confidentiality of Alcohol and Drug Abuse Patient Records regulations: The Federal rules restrict any use of the information to criminally investigate or prosecute any alcohol or drug abuse patient.[facility] HospitalIn the event this information is protected by the Federal Confidentiality of Alcohol and Drug Abuse Patient Records regulations: The Federal rules restrict any use of the information to criminally investigate or prosecute any alcohol or drug abuse patient.[facility] HospitalIn the event this information is protected by the Federal Confidentiality of Alcohol and Drug Abuse Patient Records regulations: The Federal rules restrict any use of the information to criminally investigate or prosecute any alcohol or drug abuse patient.[facility] HospitalIn the event this information is protected by the Federal Confidentiality of Alcohol and Drug Abuse Patient Records regulations: The Federal rules restrict any use of the information to criminally investigate or prosecute any alcohol or drug abuse patient.[facility] HospitalIn the event this information is protected by the Federal Confidentiality of Alcohol and Drug Abuse Patient Records regulations: The Federal rules restrict any use of the information to criminally investigate or prosecute any alcohol or drug abuse patient.[facility] HospitalIn the event this information is protected by the Federal Confidentiality of Alcohol and Drug Abuse Patient Records regulations: The Federal rules restrict any use of the information to criminally investigate or prosecute any alcohol or drug abuse patient.[facility] HospitalIn the event this information is protected by the Federal Confidentiality of Alcohol and Drug Abuse Patient Records regulations: The Federal rules restrict any use of the information to criminally investigate or prosecute any alcohol or drug abuse patient.[facility] HospitalIn the event this information is protected by the Federal Confidentiality of Alcohol and Drug Abuse Patient Records regulations: The Federal rules restrict any use of the information to criminally investigate or prosecute any alcohol or drug abuse patient.[facility] HospitalIn the event this information is protected by the Federal Confidentiality of Alcohol and Drug Abuse Patient Records regulations: The Federal rules restrict any use of the information to criminally investigate or prosecute any alcohol or drug abuse patient.[facility] HospitalIn the event this information is protected by the Federal Confidentiality of Alcohol and Drug Abuse Patient Records regulations: The Federal rules restrict any use of the information to criminally investigate or prosecute any alcohol or drug abuse patient.[facility] HospitalIn the event this information is protected by the Federal Confidentiality of Alcohol and Drug Abuse Patient Records regulations: The Federal rules restrict any use of the information to criminally investigate or prosecute any alcohol or drug abuse patient.[facility] HospitalIn the event this information is protected by the Federal Confidentiality of Alcohol and Drug Abuse Patient Records regulations: The Federal rules restrict any use of the information to criminally investigate or prosecute any alcohol or drug abuse patient.[facility] HospitalIn the event this information is protected by the Federal Confidentiality of Alcohol and Drug Abuse Patient Records regulations: The Federal rules restrict any use of the information to criminally investigate or prosecute any alcohol or drug abuse patient.[facility] HospitalIn the event this information is protected by the Federal Confidentiality of Alcohol and Drug Abuse Patient Records regulations: The Federal rules restrict any use of the information to criminally investigate or prosecute any alcohol or drug abuse patient.[facility] HospitalIn the event this information is protected by the Federal Confidentiality of Alcohol and Drug Abuse Patient Records regulations: The Federal rules restrict any use of the information to criminally investigate or prosecute any alcohol or drug abuse patient.[facility] HospitalIn the event this information is protected by the Federal Confidentiality of Alcohol and Drug Abuse Patient Records regulations: The Federal rules restrict any use of the information to criminally investigate or prosecute any alcohol or drug abuse patient.[facility] Reason for Visit (unrecogniz ed section and content) Reason Onset Date Comments Transition Of Care 09/14/2021 TCM Initial M [facility] Hospital Discharge 09/13/21 Reason Onset Date Comments Transition Of Care 09/14/2021 TCM Pharmacy- Hospital discharge 09/13/21 Reason Comments Recheck Hosp follow up Specialty Diagnoses / Procedures Referred By Contac t Referred To Contact Internal Medicine / INTERNAL MEDICINE Diagnoses hospital follow up Procedures 4C EST HOSP/ER Hans [address] [place] [address] Anjel Braga APRN.PATIENT SERVICES MANAGER [address] [place] [address] Referral ID Status Reason Start Date Expiration Date V isits Requested Visits Authorized [id number] Closed Financial Clearance Required - OON Payor Patient Cleared INN/SMCP Payor Auth Obtained 09/15/2021 06/18/2022 1 1 Reason Comments Patient Update Reason Comments Medication Problem Plan of Care Reason Comments Nifedipine issue Reason Onset Date Comments Transition Of Care 09/16/2021 TCM f/u [facility] Hospital Discharge 09/13/21 Reason Comments FYI-OT plan of care Reason Comments Anticoagulation Reason Comments Orders Reason Comments medication issue Reason Comments [facility] verbal order needed Reason Comments Medication Problem Reason Comments Consult gallbladder, abdomen pain Specialty Diagnoses / Procedures Referred By Contac t Referred To Contact General Surgery / GENERAL SURGERY Diagnoses Acute cholecystitis Abdominal pain Acute cholecystitis, persistent abdominal pain Procedures OFFICE/OUTPATIENT NEW MODERATE MDM 45-59 MINUTES NEW DDI PATIENT Adelaida Farias MD [address] [place] [address] Kaye Ortega MD [address] [place] [address] Referral ID Status Reason Start Date Expiration Date V isits Requested Visits Authorized [id number] Closed Financial Clearance Required - OON Payor Patient Cleared INN/SMCP Payor Auth Obtained 09/08/2021 06/18/2022 1 1 Reason Comments Patient Question visit from 09/15/21 Reason Comments Patient Question Reason Comments Appointment CONSULT FOR CHOLECYS TECTOMY Reason Comments Appointment Reason Onset Date Comments Transition Of Care 09/21/2021 [facility] f/u [facility] Discharge 09/13/21 Reason Comments Work excuse letter Reason Onset Date Comments Transition Of Care 09/29/2021 TCM f/u [facility] Hospital Discharge 09/13/21 Reason Onset Date Comments Refill Request 10/04/2021 Reason Comments Hypertension Specialty Diagnoses / Procedures Referred By Contac t Referred To Contact Internal Medicine / INTERNAL MEDICINE Diagnoses 09/13 ER Discharge [facility] Broken ribs follow up Procedures 4C EST HOSP/ER FU Daija Morton MD [address] [place] [address] Anjel Braga APRN.CNP [address] [place] [address] Referral ID Status Reason Start Date Expiration Date Visits Re quested Visits Authorized [id number] Closed 10/07/2021 06/18/2022 1 1 Reason Comments Coumadin update / Viburnum Reason Comments Patient Update Orders Reason Comments [...] EXPIRATORY BRIAN W/WO MXML VOL VNTJ Emilie Jauregui, PA-C [address] [address] [employer] [address] [place] [address] Referral ID Status Reason Start Date Expiration Date V isits Requested Visits Authorized [id number] Closed Auto-Generate d Referral 11/05/2021 06/18/2022 1 1 Specialty Diagnoses / Procedures Referred By Contac t Referred To Contact [facility] Diagnoses COPD with chronic bronchitis (HCC) Procedures OXIMETRY WITH AMBULATION NONINVASIVE EAR/PULSE OXIMETRY MULTIPLE DETER Emilie Jauregui PA-C [address] [place] [address] [address] Referral ID Status Reason Start Date Expiration Date V isits Requested Visits Authorized [id number] Closed Auto-Generate d Referral 11/05/2021 06/18/2022 1 1 Specialty Diagnoses / Procedures Referred By Contac t Referred To Contact Pulmonary and Critical Care Medicine / PULMONARY MEDICINE Diagnoses pre op clearance for gen surgery Procedures RI EST PULM GENERAL Daija Morton MD [address] [place] [address] Emilie Jauregui PA-C [address] [address] Referral ID Status Reason Start Date Expiration Date Visits Re quested Visits Authorized [id number] Closed 10/21/2021 06/18/2022 1 1 Reason Comments Results Reason Comments Cardiac Clearance surgery to have gall bladder removed Reason Comments UTI Specialty Diagnoses / Procedures Referred By Contac t Referred To Contact Internal Medicine / INTERNAL MEDICINE Diagnoses Essential hypertension UTI Procedures OFFICE/OUTPATIENT ESTABLISHED MOD MDM 30-39 MIN 4C EST Self Omi, CHARLES Nuno.PATIENT SERVICES MANAGER [address] [place] [address] Referral ID Status Reason Start Date Expiration Date Visits Re quested Visits Authorized [id number] Closed 11/17/2021 06/18/2022 1 1 Reason Onset [...] Internal Medicine / INTERNAL MEDICINE Diagnoses Follow-up [facility] f/u Procedures OFFICE/OUTPATIENT ESTABLISHED MOD MDM 30-39 MIN 4C EST HOSP/ER FU SelfMD Roosevelt Terri, POULTRY PACKER.REVIEW COORDINATOR [address] [place] [address] Referral ID Status Reason Start Date Expiration Date Visits Re quested Visits Authorized [id number] Closed 01/14/2022 06/18/2022 1 1 Reason Comments Established Patient follow up anand pierce Reason Comments Recheck Follow up, Hosp foll ow up Specialty Diagnoses / Procedures Referred By Contac t Referred To Contact Internal Medicine / INTERNAL MEDICINE Diagnoses [facility] [place]. 01-25-22. Black stool. Procedures 4C EST HOSP/ER FU SelfMD Omi Joy, POULTRY PACKER.PATIENT SERVICES MANAGER [address] [place] [address] Referral ID Status Reason Start Date Expiration Date Visits Re quested Visits Authorized [id number] Closed 01/28/2022 04/28/2022 1 1 Reason Comments Follow Up Specialty Diagnoses / Procedures Referred By Contac t Referred To Contact Vascular Surgery / VASCULAR SURGERY Diagnoses PVD 1 year f/u with PVR and arterial Duplex [place] [address] [address] [place] [address] [place] [address] [place] [address] Referral ID Status Reason Start Date Expiration Date Visits Re quested Visits Authorized [id number] Closed 01/31/2022 06/18/2022 1 1 Reason Comments Results, Lab Reason Onset Date Comments Refill Request 02/22/2022 Reason Comments Erroneous encounter-disregard Reason Comments Fall Reason Comments SWCC orders needed today Reason Comments admit to SWCC Reason Comments Social Work Services Reason Comments Medication Question Reason Comments Syncope Reason Onset Date Comments Refill Request 08/25/2022 Patient Update 08/25/2022 Reason Comments [facility] follow-up Reason Onset Date Comments Refill Request [...] fix this, also fell twice while in [facility] Reason Comments Mental status change Reason Comments No Show Reason Onset Date Comments Refill Request 01/23/2024 Reason Onset Date Comments Refill Request 03/12/2024 Reason Comments UTI Foul odor, confusion Reason Comments Home Health Orders Reason Comments [facility] update Reason Comments Home Care Management Patient Update Reason Comments [facility] discharge [facility] [place] Reason Onset Date Comments Refill Request 12/13/2024 Reason Comments [facility] requesting records Reason Onset Date Comments Refill Request 12/16/2024 Care Teams (unrecognized sec tion and content) Cleaning Technician Relationship Specialty Start Date End Date Daija Morton MD [address] [place], [place] [id number] PCP - General Internal Medicine 03/21/17 Beatriz Correa, PATIENT SERVICES MANAGER Referring 09/28/20 Daija Morton MD [address] [place], [place] [id number] Home Care Physician Internal Medicine 09/28/20 13, Pharmacist [phone] [place] [address] Pharmacist Pharmacy 06/17/21 Lizette Ulloa, RN [address] [place] [address] [phone]- Primary Care Career Services Assistant Internal Medicine 09/14/21 10/14/21 Tamika Almaguer PASSPORT Rn Liaison 09/26/17 Cleaning Technician Relationship Specialty Start Date End Date Daija Morton MD [address] [place] [address] PCP - General Internal Medicine 03/21/17 Beatriz Correa, PATIENT SERVICES MANAGER Referring 09/28/20 Daija Morton MD [address] [place] [address] Home Care Physician Internal Medicine 09/28/20 13, Pharmacist [phone] [place] [address] Pharmacist Pharmacy 06/17/21 Lizette Ulloa, ОЛЕГ [address] [place] [address] Primary Care Career Services Assistant Internal Medicine 09/14/21 10/14/21 Tamika Almaguer PASSPORT Rn Liaison 09/26/17 Cleaning Technician Relationship Specialty Start Date End Date Daija Morton MD [address] [place] [address] PCP - General Internal Medicine 03/21/17 Beatriz Correa, PATIENT SERVICES MANAGER Referring 09/28/20 Daija Morton MD [address] [place] [address] Home Care Physician Internal Medicine 09/28/20 13, Pharmacist [address] [place] [address] Pharmacist Pharmacy 06/17/21 Lizette Ulloa, ОЛЕГ [address] [place] [address] Primary Care Career Services Assistant Internal Medicine 09/14/21 10/14/21 Tamika Almaguer PASSPORT Rn Liaison 09/26/17 Cleaning Technician Relationship Specialty Start Date End Date Daija Morton MD [address] [place] [address] PCP - General Internal Medicine 03/21/17 Beatriz Correa CNP Referring 09/28/20 Daija Morton MD [address] [place] [address] Home Care Physician Internal Medicine 09/28/20 13, Pharmacist [address] [place] [address] Pharmacist Pharmacy 06/17/21 Lizette Ulloa, ОЛЕГ [address] [place] [address] Primary Care Career Services Assistant Internal Medicine 09/14/21 10/14/21 Tamika HARRELL Rn Liaison 09/26/17 Cleaning Technician Relationship Specialty Start Date End Date Daija Morton MD [address] [place] [address] PCP - General Internal Medicine 03/21/17 Beatriz Correa CNP Referring 09/28/20 Daija Morton MD [address] [place] [address] Home Care Physician Internal Medicine 09/28/20 13, Pharmacist [phone] [place] [address] Pharmacist Pharmacy 06/17/21 Lizette Ulloa, ОЛЕГ [address] [place] [address] Primary Care Career Services Assistant Internal Medicine 09/14/21 10/14/21 Tamika HARRELL Rn Liaison 09/26/17 Cleaning Technician Relationship Specialty Start Date End Date Daija Morton MD [address] [place] [address] PCP - General Internal Medicine 03/21/17 Beatriz Correa CNP Referring 09/28/20 Daija Morton MD [address] [place] [address] Home Care Physician Internal Medicine 09/28/20 13, Pharmacist [address] [place] [address] Pharmacist Pharmacy 06/17/21 Lizette Ulloa RN [address] [place] [address] Primary Care Career Services Assistant Internal Medicine 09/14/21 10/14/21 Tamika Almaguer PASSPORT Rn Liaison 09/26/17 Cleaning Technician Relationship Specialty Start Date End Date Daija Morton MD [address] [place] [address] PCP - General Internal Medicine 03/21/17 Beatriz Correa, PATIENT SERVICES MANAGER Referring 09/28/20 Daija Morton MD [address] [place] [address] Home Care Physician Internal Medicine 09/28/20 13, Pharmacist [address] [place] [address] Pharmacist Pharmacy 06/17/21 Lizette Ulloa RN [address] [place] [address] Primary Care Career Services Assistant Internal Medicine 09/14/21 10/14/21 Tamika HARRELL Rn Liaison 09/26/17 Cleaning Technician Relationship Specialty Start Date End Date Dajia Morton MD [address] [place] [address] PCP - General Internal Medicine 03/21/17 Beatriz Correa, PATIENT SERVICES MANAGER Referring 09/28/20 Daija Morton MD [address] [place] [address] Home Care Physician Internal Medicine 09/28/20 13, Pharmacist [address] [place] [address] Pharmacist Pharmacy 06/17/21 Lizette Ulloa RN [address] [place] [address] Primary Care Career Services Assistant Internal Medicine 09/14/21 10/14/21 Kaye Ortega MD [address] [place] [address] General Surgery 09/21/21 Tamikaaleksandra Almaguer PASSANYI Rn Liaison 09/26/17 Cleaning Technician Relationship Specialty Start Date End Date Daija Morton MD [address] [facility] [address] PCP - General Internal Medicine 03/21/17 Beatriz Correa, PATIENT SERVICES MANAGER Referring 09/28/20 Daija Morton MD [address] [facility] [address] Home Care Physician Internal Medicine 09/28/20 13, Pharmacist [phone] [place] [address] Pharmacist Pharmacy 06/17/21 Lizette Ulloa RN [address] [place] [address] Primary Care Career Services Assistant Internal Medicine 09/14/21 10/14/21 Kaye Ortega MD [address] [address] General Surgery 09/21/21 Tamika HARRELL Rn Liaison 09/26/17 Cleaning Technician Relationship Specialty Start Date End Date Daija Morton MD [address] [facility] [address] PCP - General Internal Medicine 03/21/17 Beatriz Correa, PATIENT SERVICES MANAGER Referring 09/28/20 Daija Morton MD [address] [facility] [address] Home Care Physician Internal Medicine 09/28/20 13, Pharmacist [address] [place] [address] Pharmacist Pharmacy 06/17/21 Lizette Ulloa RN [address] [place] [address] Primary Care Career Services Assistant Internal Medicine 09/14/21 10/14/21 Kaye Ortega MD [address] [facility] [place] [address] General Surgery 09/21/21 Tamika Almaguer PASSPORT Rn Liaison 09/26/17 Cleaning Technician Relationship Specialty Start Date End Date Daija Morton MD [address] [place] [address] PCP - General Internal Medicine 03/21/17 Beatriz Correa, PATIENT SERVICES MANAGER Referring 09/28/20 Daija Morton MD [address] [place] [address] Home Care Physician Internal Medicine 09/28/20 13, Pharmacist [address] [place] [address] Pharmacist Pharmacy 06/17/21 Lizette Ulloa, ОЛЕГ [address] [place] [address] Primary Care Career Services Assistant Internal Medicine 09/14/21 10/14/21 Kaye Ortega MD [address] [facility] [place] [address] General Surgery 09/21/21 Tamika Almaguer PASSPORT Rn Liaison 09/26/17 Cleaning Technician Relationship Specialty Start Date End Date Daija Morton MD [address] [place] [address] PCP - General Internal Medicine 03/21/17 Beatriz Correa, PATIENT SERVICES MANAGER Referring 09/28/20 Daija Morton MD [address] [place] [address] Home Care Physician Internal Medicine 09/28/20 13, Pharmacist [address] [place] [address] Pharmacist Pharmacy 06/17/21 Lizette Ulloa RN [address] [place] [address] Primary Care Career Services Assistant Internal Medicine 09/14/21 10/14/21 Kaye Ortega MD [address] [place] [id number] 723- General Surgery 09/21/21 Tamika HARRELL Rn Liaison 09/26/17 Cleaning Technician Relationship Specialty Start Date End Date Daija Morton MD [address] [place] [address] PCP - General Internal Medicine 03/21/17 Beatriz Correa, PATIENT SERVICES MANAGER Referring 09/28/20 Daija Morton MD [address] [place] [address] Home Care Physician Internal Medicine 09/28/20 13, Pharmacist [address] [place] [address] Pharmacist Pharmacy 06/17/21 Lizette Ulloa RN [address] [place] [address] Primary Care Career Services Assistant Internal Medicine 09/14/21 10/14/21 Kaye Ortega MD [address] [place] [address] General Surgery 09/21/21 Tamika HARRELL Rn Liaison 09/26/17 Cleaning Technician Relationship Specialty Start Date End Date Daija Morton MD [address] [place] [address] PCP - General Internal Medicine 03/21/17 Beatriz Correa, PATIENT SERVICES MANAGER Referring 09/28/20 Daija Morton MD [address] [place] [address] Home Care Physician Internal Medicine 09/28/20 Fco Franklin, ОЛЕГ [address] [place] [address] Adult Basic Education Instructor 10/08/20 12/21/20 13, Pharmacist [address]192 [place] [address] Pharmacist Pharmacy 06/17/21 Lizette Ulloa RN [address] [facility] [place] [address] Primary Care Career Services Assistant Internal Medicine 09/14/21 10/14/21 Kaye Ortega MD [address] [facility] [place] [phone] General Surgery 09/21/21 [facility] 09/26/17 Cleaning Technician Relationship Specialty Start Date End Date Daija Morton MD [address] [place] [address] PCP - General Internal Medicine 03/21/17 Beatriz Correa, PATIENT SERVICES MANAGER Referring 09/28/20 Daija Morton MD [address] [place] [address] Home Care Physician Internal Medicine 09/28/20 13, Pharmacist 8[address]49 [place] [address] Pharmacist Pharmacy 06/17/21 Lizette Ulloa RN [address] [place] [address] Primary Care Career Services Assistant Internal Medicine 09/14/21 10/14/21 Kaye Ortega MD [address] [facility] [phone] General Surgery 09/21/21 Tamika HARRELL Rn Liaison 09/26/17 Cleaning Technician Relationship Specialty Start Date End Date Daija Morton MD [address] [place], [place] [id number] PCP - General Internal Medicine 03/21/17 Beatriz Correa, PATIENT SERVICES MANAGER Referring 09/28/20 10/12/21 Daija Morton MD [address] [place], [place] 954861 Home Care Physician Internal Medicine 09/28/20 10/12/21 13, Pharmacist 48124 [place], [place] [phone] Pharmacist Pharmacy 06/17/21 Lizette Ulloa, RN [address] [place], [place] [phone] Primary Care Career Services Assistant Internal Medicine 09/14/21 10/14/21 Kaye Ortega MD [address] [place] [phone] General Surgery 09/21/21 Ye Coello MD [address] [place], [place] [id number] General Surgery 10/13/21 Emilie Jauregui, PA-C [address] [place] [address] Specialty Engineer Soils Pulmonary and Critical Care Medicine 10/13/21 Ryan May MD [address] [place] [address] Specialty Engineer Soils Vascular Surgery 10/13/21 Geronimo Medina DO [address] [address] Skin Lap Bonder Cardiology 10/13/21 Tamika HARRELL Rn Liaison 09/26/17 Cleaning Technician Relationship Specialty Start Date End Date Daija Morton MD [address] [place], [place] 524051 PCP - General Internal Medicine 03/21/17 13, Pharmacist [address] [place] [address] Pharmacist Pharmacy 06/17/21 Lizette Ulloa, ОЛЕГ [address] [place] [address] Primary Care Career Services Assistant Internal Medicine 09/14/21 10/14/21 Kaye Ortega MD [address] [place] [phone] General Surgery 09/21/21 Ye Coello MD [address] [place], [place] [id number] General Surgery 10/13/21 Emilie Jauregui PA-C [address] [place], [place] [id number] Specialty Engineer Soils Pulmonary and Critical Care Medicine 10/13/21 Ryan May MD [address] [place], [place] 2215295 Specialty Engineer Soils Vascular Surgery 10/13/21 Geronimo Medina, DO [address] [address] Skin Lap Bonder Cardiology 10/13/21 Tamika Almaguer [facility] Rn Liaison 09/26/17 Cleaning Technician Relationship Specialty Start Date End Date Daija Morton MD [address] [place], [place] 357631 PCP - General Internal Medicine 03/21/17 Betariz Correa, PATIENT SERVICES MANAGER Referring 09/28/20 10/12/21 Daija Morton MD [address] [place] [address] Home Care Physician Internal Medicine 09/28/20 10/12/21 13, Pharmacist 66641 [place] [address] Pharmacist Pharmacy 06/17/21 Lizette Ulloa RN [address] [place], [place] [phone] Primary Care Career Services Assistant Internal Medicine 09/14/21 10/14/21 Kaye Ortega MD [address] [place] [address] General Surgery 09/21/21 Ye Coello MD [address] [place] [address] General Surgery 10/13/21 Emilie Jauregui PA-C [address] [place] [address] Specialty Engineer Soils Pulmonary and Critical Care Medicine 10/13/21 Ryan May MD [address] [place], [place] 2837495 Specialty Engineer Soils Vascular Surgery 10/13/21 Geronimo Medina, [address] [id number] Skin Lap Bonder Cardiology 10/13/21 [facility] R[facility] Liaison 09/26/17 Cleaning Technician Relationship Specialty Start Date End Date Daija Morton MD [address] [place] [address] PCP - General Internal Medicine 03/21/17 13, Pharmacist 0[address] [place] [address] Pharmacist Pharmacy 06/17/21 Lizette Ulloa RN [address] [place] [address] Primary Care Career Services Assistant Internal Medicine 09/14/21 10/14/21 Kaye Ortega MD [address] [place] [address] General Surgery 09/21/21 Ye Coello MD [address] [place], [place] [id number] General Surgery 10/13/21 Emilie Jauregui PA-C [address] [place] [address] Specialty Engineer Soils Pulmonary and Critical Care Medicine 10/13/21 Ryan May MD [address] [place] [address] Specialty Engineer Soils Vascular Surgery 10/13/21 Geronimo Medina DO [address] [address] Skin Lap Bonder Cardiology 10/13/21 Tamika Almaguer [facility] Rn Liaison 09/26/17 Cleaning Technician Relationship Specialty Start Date End Date Daija Morton MD [address] [place] [address] PCP - General Internal Medicine 03/21/17 13, Pharmacist [address]223 [place] [address] Pharmacist Pharmacy 06/17/21 Kaye Ortega MD [address] [place] [address] General Surgery 09/21/21 Ye Coello MD [address] [place], [place] [id number] General Surgery 10/13/21 Emilie Jauregui PA-C [address] [place] [address] Specialty Engineer Soils Pulmonary and Critical Care Medicine 10/13/21 Ryan May MD [address] [place] [address] Specialty Engineer Soils Vascular Surgery 10/13/21 Geronimo Medina, DO [address] [address] Skin Lap Bonder Cardiology 10/13/21 Tamika HARRELL Rn Liaison 09/26/17 Cleaning Technician Relationship Specialty Start Date End Date Daija Morton MD [address] [place] [address] PCP - General Internal Medicine 03/21/17 13, Pharmacist [address] [place] [address] Pharmacist Pharmacy 06/17/21 Kaye Ortega MD [address] [place] [address] General Surgery 09/21/21 Ye Coello MD [address] [place] [address] General Surgery 10/13/21 Emilie Jauregui, PA-C [address] [place] [address] Specialty Engineer Soils Pulmonary and Critical Care Medicine 10/13/21 Ryan May MD [address] [facility] [place] [address] Specialty Engineer Soils Vascular Surgery 10/13/21 Geronimo Medina, [address] [address] Skin Lap Bonder Cardiology 10/13/21 Tamika HARRELL Rn Liaison 09/26/17 Cleaning Technician Relationship Specialty Start Date End Date Daija Morton MD [address] [place] [address] PCP - General Internal Medicine 03/21/17 13, Pharmacist [address] [place] [address] Pharmacist Pharmacy 06/17/21 Kaye Ortega MD [address] [place] [address] General Surgery 09/21/21 Ye Coello MD [address] [place], [place] [id number] General Surgery 10/13/21 Emilie Jauregui PA-C [address] [place] [address] Specialty Engineer Soils Pulmonary and Critical Care Medicine 10/13/21 Ryan May MD [address] [place], [place] 8490695 Specialty Engineer Soils Vascular Surgery 10/13/21 Geronimo Medina, DO [address] [address] Skin Lap Bonder Cardiology 10/13/21 Tamika HARRELL Rn Liaison 09/26/17 Cleaning Technician Relationship Specialty Start Date End Date Daija Morton MD [address] [place] [address] PCP - General Internal Medicine 03/21/17 13, Pharmacist [address]339 [place] [address] Pharmacist Pharmacy 06/17/21 Kaye Ortega MD [address] [place] [address] General Surgery 09/21/21 Ye Coello MD [address] [place], [place] [id number] General Surgery 10/13/21 Emilie Jauregui PA-C [address] [place] [address] Specialty Engineer Soils Pulmonary and Critical Care Medicine 10/13/21 Ryan May MD [address] [place], [place] 3484995 Specialty Engineer Soils Vascular Surgery 10/13/21 Geronimo Medina DO [address] [address] Skin Lap Bonder Cardiology 10/13/21 Tamika Canales Tripp [facility] Rn Liaison 09/26/17 Cleaning Technician Relationship Specialty Start Date End Date Daija Morton MD [address] [place] [address] PCP - General Internal Medicine 03/21/17 13, Pharmacist [address]640 [place] [address] Pharmacist Pharmacy 06/17/21 Kaye Ortega MD [address] [place] [address] General Surgery 09/21/21 Ye Coello MD [address] [place], [place] [id number] General Surgery 10/13/21 Emilie Jauregui PA-C [address] [place] [address] Specialty Engineer Soils Pulmonary and Critical Care Medicine 10/13/21 Ryan May MD [address] [place] [address] Specialty Engineer Soils Vascular Surgery 10/13/21 Geronimo Medina DO [address] [address] Skin Lap Bonder Cardiology 10/13/21 Tamika HARRELL Rn Liaison 09/26/17 Cleaning Technician Relationship Specialty Start Date End Date Daija Morton MD [address] [place] [address] PCP - General Internal Medicine 03/21/17 13, Pharmacist [address] [place] [address] Pharmacist Pharmacy 06/17/21 Kaye Ortega MD [address] [place] [address] General Surgery 09/21/21 Ye Coello MD [address] [place], [place] [id number] General Surgery 10/13/21 Emilie Jauregui PA-C [address] [place], [place] 904981 Specialty Engineer Soils Pulmonary and Critical Care Medicine 10/13/21 Ryan May MD [address] [place], [place] 5478495 Specialty Engineer Soils Vascular Surgery 10/13/21 Geronimo Medina DO [address] [address] Skin Lap Bonder Cardiology 10/13/21 Tamika HARRELL Rn Liaison 09/26/17 Cleaning Technician Relationship Specialty Start Date End Date Daija Morton MD [address] [place] [address] PCP - General Internal Medicine 03/21/17 13, Pharmacist [address] [place] [address] Pharmacist Pharmacy 06/17/21 Kaye Ortega MD [address] [place] [address] General Surgery 09/21/21 Ye Coello MD [address] [place] [id number] General Surgery 10/13/21 Emilie Jauregui, PA-C [address] [place] [address] Specialty Engineer Soils Pulmonary and Critical Care Medicine 10/13/21 Ryan May MD [address] [place] [address] Specialty Engineer Soils Vascular Surgery 10/13/21 Geronimo Medina DO [address] [address] Skin Lap Bonder Cardiology 10/13/21 Tmaika Almaguer [facility] Rn Liaison 09/26/17 Cleaning Technician Relationship Specialty Start Date End Date Daija Morton MD [address] [place] [address] PCP - General Internal Medicine 03/21/17 13, Pharmacist 83928 [place] [address] Pharmacist Pharmacy 06/17/21 Kaye Ortega MD [address] [place] [address] General Surgery 09/21/21 Ye Coello MD [address] [place], [place] [id number] General Surgery 10/13/21 Emilie Jauregui PA-C [address] [place] [address] Specialty Engineer Soils Pulmonary and Critical Care Medicine 10/13/21 Ryan May MD [address] [place] [address] Specialty Engineer Soils Vascular Surgery 10/13/21 Geronimo Medina, [address] [address] Skin Lap Bonder Cardiology 10/13/21 Tamika Almaguer [facility] Rn Liaison 09/26/17 Cleaning Technician Relationship Specialty Start Date End Date Daija Morton MD [address] [place] [address] PCP - General Internal Medicine 03/21/17 13, Pharmacist [address]22 [place] [address] Pharmacist Pharmacy 06/17/21 Kaye Ortega MD [address] [place] [address] General Surgery 09/21/21 Ye Coello MD [address] [place], [place] [id number] General Surgery 10/13/21 Emilie Jauregui PA-C [address] [place] [address] Specialty Engineer Soils Pulmonary and Critical Care Medicine 10/13/21 Ryan May MD [address] [facility] [place] [address] Specialty Engineer Soils Vascular Surgery 10/13/21 Geronimo Medina, [address] [address] Skin Lap Bonder Cardiology 10/13/21 Tamika Almaguer [facility] Rn Liaison 09/26/17 Cleaning Technician Relationship Specialty Start Date End Date Daija Morton MD [address] [place] [address] PCP - General Internal Medicine 03/21/17 13, Pharmacist [address] [place] [address] Pharmacist Pharmacy 06/17/21 Kaye Ortega MD [address] [place] [address] General Surgery 09/21/21 Ye Coello MD [address] [place], [place] [id number] General Surgery 10/13/21 Emilie Jauregui PA-C [address] [place] [address] Specialty Engineer Soils Pulmonary and Critical Care Medicine 10/13/21 Ryan May MD [address] [place] [address] Specialty Engineer Soils Vascular Surgery 10/13/21 Geronimo Medina, [address] [address] Skin Lap Bonder Cardiology 10/13/21 Tamika Almaguer [facility] Rn Liaison 09/26/17 Cleaning Technician Relationship Specialty Start Date End Date Daija Morton MD [address] [place] [address] PCP - General Internal Medicine 03/21/17 13, Pharmacist [address] [place] [address] Pharmacist Pharmacy 06/17/21 Kaye Ortega MD [address] [place] [address] General Surgery 09/21/21 Ye Coello MD [address] [place] [address] General Surgery 10/13/21 Emilie Jauregui PA-C [address] [place] [address] Specialty Engineer Soils Pulmonary and Critical Care Medicine 10/13/21 Ryan May MD [address] [place], [place] 3901595 Specialty Engineer Soils Vascular Surgery 10/13/21 Geronimo Medina DO [address] [address] Skin Lap Bonder Cardiology 10/13/21 Tamika Almaguer [facility] Rn Liaison 09/26/17 Cleaning Technician Relationship Specialty Start Date End Date Daija Morton MD [address] [place] [address] PCP - General Internal Medicine 03/21/17 13, Pharmacist [address] [place] [address] Pharmacist Pharmacy 06/17/21 Kaye Ortega MD [address] [place] [address] General Surgery 09/21/21 Ye Coello MD [address] [place] [address] General Surgery 10/13/21 Emilie Jauregui PA-C [address] [place] [address] Specialty Engineer Soils Pulmonary and Critical Care Medicine 10/13/21 Ryan May MD [address] [place], [place] 2912495 Specialty Engineer Soils Vascular Surgery 10/13/21 Geronimo Medina DO [address] [address] Skin Lap Bonder Cardiology 10/13/21 Tamika HARRELL Rn Liaison 09/26/17 Cleaning Technician Relationship Specialty Start Date End Date Daija Morton MD [address] [place] [address] PCP - General Internal Medicine 03/21/17 13, Pharmacist [address]70 [place] [address] Pharmacist Pharmacy 06/17/21 Kaye Ortega MD [address] [place] [address] General Surgery 09/21/21 Ye Coello MD [address] [place], [place] 139655 General Surgery 10/13/21 Emilie Jauregui PA-C [address] [place], [place] 663311 Specialty Engineer Soils Pulmonary and Critical Care Medicine 10/13/21 Ryan May MD [address] [place] [address] Specialty Engineer Soils Vascular Surgery 10/13/21 Geronimo Medina DO [address] [address] Skin Lap Bonder Cardiology 10/13/21 Tamika HARRELL Rn Liaison 09/26/17 Cleaning Technician Relationship Specialty Start Date End Date Daija Morton MD [address] [place] [address] PCP - General Internal Medicine 03/21/17 13, Pharmacist [address]641 [place] [address] Pharmacist Pharmacy 06/17/21 Kaye Ortega MD [address] [place] [address] General Surgery 09/21/21 Ye Coello MD [address]87 [place], [place] [id number] General Surgery 10/13/21 Emilie Jauregui PA-C [address] [place], [place] 138131 Specialty Engineer Soils Pulmonary and Critical Care Medicine 10/13/21 Ryan May MD [address] [place] [address] Specialty Engineer Soils Vascular Surgery 10/13/21 Geronimo Medina DO [address] [address] Skin Lap Bonder Cardiology 10/13/21 Tamika Almaguer [facility] Rn Liaison 09/26/17 Cleaning Technician Relationship Specialty Start Date End Date Daija Morton MD [address] [place] [address] PCP - General Internal Medicine 03/21/17 13, Pharmacist [address] [place] [address] Pharmacist Pharmacy 06/17/21 Kaye Ortega MD [address] [place] [address] General Surgery 09/21/21 Ye Coello MD [address] [place], [place] [id number] General Surgery 10/13/21 Emilie Jauregui PA-C [address] [place] [address] Specialty Engineer Soils Pulmonary and Critical Care Medicine 10/13/21 Ryan May MD [address] [facility] [place] [address] Specialty Engineer Soils Vascular Surgery 10/13/21 Geronimo Medina DO [address] [address] Skin Lap Bonder Cardiology 10/13/21 Tamika Almaguer [employer] Rn Liaison 09/26/17 Cleaning Technician Relationship Specialty Start Date End Date Daija Morton MD [address] [place] [address] PCP - General Internal Medicine 03/21/17 13, Pharmacist [address] [place] [address] Pharmacist Pharmacy 06/17/21 Kaye Ortega MD [address] [place] [address] General Surgery 09/21/21 Ye Coello MD [address] [place], [place] [id number] General Surgery 10/13/21 Emilie Jauregui PA-C [address] [place] [address] Specialty Engineer Soils Pulmonary and Critical Care Medicine 10/13/21 Ryan May MD [address] [facility] [place] [address] Specialty Engineer Soils Vascular Surgery 10/13/21 Geronimo Medina DO [address] [address] Skin Lap Bonder Cardiology 10/13/21 Tamika HARRELL Rn Liaison 09/26/17 Cleaning Technician Relationship Specialty Start Date End Date Daija Morton MD [address] [place] [address] PCP - General Internal Medicine 03/21/17 13, Pharmacist [address] [place] [address] Pharmacist Pharmacy 06/17/21 Kaye Ortega MD [address] [place] [address] General Surgery 09/21/21 Ye Coello MD [address] [place], [place] [id number] General Surgery 10/13/21 Emilie Jauregui PA-C [address] [place] [address] Specialty Engineer Soils Pulmonary and Critical Care Medicine 10/13/21 Ryan May MD [address] [place] [address] Specialty Engineer Soils Vascular Surgery 10/13/21 Geronimo Medina, [address] [address] Skin Lap Bonder Cardiology 10/13/21 Tamika Almaguer [facility] Rn Liaison 09/26/17 Cleaning Technician Relationship Specialty Start Date End Date Daija Morton MD [address] [place] [address] PCP - General Internal Medicine 03/21/17 13, Pharmacist [address] [place] [address] Pharmacist Pharmacy 06/17/21 Kaye Ortega MD [address] [place] [address] General Surgery 09/21/21 Ye Coello MD [address] [place], [place] [id number] General Surgery 10/13/21 Emilie Jauregui PA-C [address] [place] [address] Specialty Engineer Soils Pulmonary and Critical Care Medicine 10/13/21 Ryan May MD [address] [place], [place] 0987795 Specialty Engineer Soils Vascular Surgery 10/13/21 Geronimo Medina DO [address] [address] Skin Lap Bonder Cardiology 10/13/21 Tamika Almaguer [facility] Rn Liaison 09/26/17 Cleaning Technician Relationship Specialty Start Date End Date Daija Morton MD [address] [place], [place] 477241 PCP - General Internal Medicine 03/21/17 13, Pharmacist [address] [place] [address] Pharmacist Pharmacy 06/17/21 Kaye Ortega MD [address] [place] [address] General Surgery 09/21/21 Ye Coello MD [address] [place] [address] General Surgery 10/13/21 Emilie Jauregui PA-C [address] [place] [address] Specialty Engineer Soils Pulmonary and Critical Care Medicine 10/13/21 Ryan May MD [address] [place], [place] 9637395 Specialty Engineer Soils Vascular Surgery 10/13/21 Geronimo Medina DO [address] [address] Skin Lap Bonder Cardiology 10/13/21 Tamika Almaguer [facility] Rn Liaison 09/26/17 Cleaning Technician Relationship Specialty Start Date End Date Daija Morton MD [address] [place] [address] PCP - General Internal Medicine 03/21/17 13, Pharmacist 15696 [place] [address] Pharmacist Pharmacy 06/17/21 Kaye Ortega MD [address] [place] [address] General Surgery 09/21/21 Ye Coello MD [address] [place], [place] [id number] General Surgery 10/13/21 Emilie Jauregui PA-C [address] [place], [place] 363301 Specialty Engineer Soils Pulmonary and Critical Care Medicine 10/13/21 Ryan May MD [address] [place], [place] 6406895 Specialty Engineer Soils Vascular Surgery 10/13/21 Geronimo Medina, [address] [address] Skin Lap Bonder Cardiology 10/13/21 Tamika Almaguer [facility] Rn Liaison 09/26/17 Cleaning Technician Relationship Specialty Start Date End Date Daija Morton MD [address] [place] [address] PCP - General Internal Medicine 03/21/17 13, Pharmacist 70184 [place] [address] Pharmacist Pharmacy 06/17/21 Kaye Ortega MD [address] [place] [address] General Surgery 09/21/21 Ye Coello MD 1587 [place], [place] [id number] General Surgery 10/13/21 Emilie Jauregui PA-C [address] [place] [address] Specialty Engineer Soils Pulmonary and Critical Care Medicine 10/13/21 Ryan May MD [address] [place], [place] 3388895 Specialty Engineer Soils Vascular Surgery 10/13/21 Geronimo Medina DO [address] [address] Skin Lap Bonder Cardiology 10/13/21 Tamika Almaguer [facility] Rn Liaison 09/26/17 Cleaning Technician Relationship Specialty Start Date End Date Daija Morton MD [address] [place], [place] 375826 [phone] PCP - General Internal Medicine 03/21/17 13, Pharmacist [address]273 [place] [address] Pharmacist Pharmacy 06/17/21 Kaye Ortega MD [address] [place] [address] General Surgery 09/21/21 Ye Coello MD 1587 [facility] [place] [address]85 General Surgery 10/13/21 Emilie Jauregui PA-C [address] [place] [address] Specialty Engineer Soils Pulmonary and Critical Care Medicine 10/13/21 Ryan May MD [address] [place] [address] Specialty Engineer Soils Vascular Surgery 10/13/21 Geronimo Medina DO [address] [address] Skin Lap Bonder Cardiology 10/13/21 Tamika Almaguer [facility] Rn Liaison 09/26/17 Cleaning Technician Relationship Specialty Start Date End Date Daija Morton MD [address] [place] [address] PCP - General Internal Medicine 03/21/17 13, Pharmacist [address]21 [place] [address] Pharmacist Pharmacy 06/17/21 Kaye Ortega MD [address] [place] [address] General Surgery 09/21/21 Ye Coello MD [address] [place] [address] General Surgery 10/13/21 Emilie Jauregui PA-C [address] [place] [address] Specialty Engineer Soils Pulmonary and Critical Care Medicine 10/13/21 Ryan May MD [address] [place] [address] Specialty Engineer Soils Vascular Surgery 10/13/21 Geronimo Medina DO [address] [address] Skin Lap Bonder Cardiology 10/13/21 Tamika HARRELL Rn Liaison 09/26/17 Cleaning Technician Relationship Specialty Start Date End Date Daija Morton MD [address] [place] [address] PCP - General Internal Medicine 03/21/17 13, Pharmacist [address] [place] [address] Pharmacist Pharmacy 06/17/21 Kaye Ortega MD [address] [place] [address] General Surgery 09/21/21 Ye Coello MD [address] [place], [place] [id number] General Surgery 10/13/21 Emilie Jauregui PA-C [address] [place] [address] Specialty Engineer Soils Pulmonary and Critical Care Medicine 10/13/21 Ryan May MD [address] [place] [address] Specialty Engineer Soils Vascular Surgery 10/13/21 Geronimo Medina, DO [address] [id number] Skin Lap Bonder Cardiology 10/13/21 Tamika Almaguer [facility] Rn Liaison 09/26/17 Cleaning Technician Relationship Specialty Start Date End Date Daija Morton MD [address] [place], [place] [id number] [phone] PCP - General Internal Medicine 03/21/17 13, Pharmacist [address]199 [place] [address] Pharmacist Pharmacy 06/17/21 Kyae Ortega MD [address] [place] [address] General Surgery 09/21/21 Ye Coello MD [address] [place], [place] [id number] General Surgery 10/13/21 Emilie Jauregui PA-C [address] [place] [address] Specialty Engineer Soils Pulmonary and Critical Care Medicine 10/13/21 Ryan May MD [address] [place], [place] 1357195 Specialty Engineer Soils Vascular Surgery 10/13/21 Geronimo Medina, [address] [id number] Skin Lap Bonder Cardiology 10/13/21 Tamika Almaguer [facility] Rn Liaison 09/26/17 Cleaning Technician Relationship Specialty Start Date End Date Daija Morton MD [address] [place] [address] PCP - General Internal Medicine 03/21/17 13, Pharmacist [address] [place] [address] Pharmacist Pharmacy 06/17/21 Kaye Ortega MD [address] [place] [address] General Surgery 09/21/21 Ye Coello MD [address] [place] [address] General Surgery 10/13/21 Emilie Jauregui PA-C [address] [place] [address] Specialty Engineer Soils Pulmonary and Critical Care Medicine 10/13/21 Ryan May MD [address] [place] [address] Specialty Engineer Soils Vascular Surgery 10/13/21 Geronimo Medina DO [address] [address] Skin Lap Bonder Cardiology 10/13/21 Tamika Almaguer [facility] Rn Liaison 09/26/17 Cleaning Technician Relationship Specialty Start Date End Date Daija Morton MD [address] [place], [place] [address] PCP - General Internal Medicine 03/21/17 13, Pharmacist [address] [place] [address] Pharmacist Pharmacy 06/17/21 Kaye Ortega MD [address] [place] [phone] General Surgery 09/21/21 Ye Coello MD [address], [place] [id number] General Surgery 10/13/21 Emilie Jauregui PA-C [address] [place] [address] Specialty Engineer Soils Pulmonary and Critical Care Medicine 10/13/21 Ryan May MD [address] [place], [place] [id number] Specialty Engineer Soils Vascular Surgery 10/13/21 Geronimo Medina, [address] [address] Skin Lap Bonder Cardiology 10/13/21 Tamika Almaguer [employer] Rn Liaison 09/26/17 Cleaning Technician Relationship Specialty Start Date End Date Daija Morton MD [address] [place] [address] PCP - General Internal Medicine 03/21/17 13, Pharmacist [address] [place] [address] Pharmacist Pharmacy 06/17/21 04/12/22 Kyae Ortega MD [address] [place] [address] General Surgery 09/21/21 Ye Coello MD [address] [place] [id number] General Surgery 10/13/21 Emilie Jauregui PA-C [address] [place] [address] Specialty Engineer Soils Pulmonary and Critical Care Medicine 10/13/21 Ryan May MD [address] [facility] [place] [address] Specialty Engineer Soils Vascular Surgery 10/13/21 Geronimo Medina DO [address] [address] Skin Lap Bonder Cardiology 10/13/21 Tamika Canales [facility] Rn Liaison 09/26/17 Team Status: Active Member Role Status Dates Dr. Daija Morton MD Family Provider Active Dr. Daija Morton MD Primary Care Provider Active Team Status: Inactive Member Role Status Dates Dr. Daija Morton MD Primary Care Provider Active Андрей Cooley Attending Provider, Referring Provider Ac tive Team Status: Inactive Member Role Status Dates Dr. Daija Morotn MD Primary Care Provider Active Андрей Cooley Attending Provider Active Cleaning Technician Relationship Specialty Start Date End Date Daija Morton MD [address] [place], [place] 442418 [phone] PCP - General Internal Medicine 03/21/17 Kaye Ortega MD [address] [place] [address] General Surgery 09/21/21 Ye Coello MD [address] [place], [place] [id number] General Surgery 10/13/21 Emilie Jauregui PA-C [address] [place] [address] Specialty Engineer Soils Pulmonary and Critical Care Medicine 10/13/21 Ryan May MD [address] [place] [address] Specialty Engineer Soils Vascular Surgery 10/13/21 Geronimo Medina, [address] [address] Skin Lap Bonder Cardiology 10/13/21 Tamika HARRELL Rn Liaison 09/26/17 Cleaning Technician Relationship Specialty Start Date End Date Daija Morton MD [address] [place] [address] PCP - General Internal Medicine 03/21/17 Kaye Ortega MD [address] [place] [address] General Surgery 09/21/21 Ye Coello MD [address], [place] 765165 General Surgery 10/13/21 Emilie Jauregui PA-C [address] [place] [address] Specialty Engineer Soils Pulmonary and Critical Care Medicine 10/13/21 Ryan May MD [address] [facility] [place] [place] [address] Specialty Engineer Soils Vascular Surgery 10/13/21 Geronimo Medina DO [address] [address] Skin Lap Bonder Cardiology 10/13/21 Tamika HARRELL Rn Liaison 09/26/17 Cleaning Technician Relationship Specialty Start Date End Date Daija Morton MD [address] [place] [address] PCP - General Internal Medicine 03/21/17 Kaye Ortega MD [address] [place] [address] General Surgery 09/21/21 Ye Coello MD [address], [place] [id number] General Surgery 10/13/21 Emilie Jauregui, PA-C [address] [place] [address] Specialty Engineer Soils Pulmonary and Critical Care Medicine 10/13/21 Ryan May MD [address] [place] [address] Specialty Engineer Soils Vascular Surgery 10/13/21 Geronimo Medina, DO [address] [address] Skin Lap Bonder Cardiology 10/13/21 Tamika Almaguer [facility] Rn Liaison 09/26/17 Cleaning Technician Relationship Specialty Start Date End Date Daija Morton MD [address] [place] [address] PCP - General Internal Medicine 03/21/17 Kaye Ortega MD [address] [place] [address] General Surgery 09/21/21 Ye Coello MD [address] [place], [place] [id number] General Surgery 10/13/21 Emilie Jauregui PA-C [address] [place] [address] Specialty Engineer Soils Pulmonary and Critical Care Medicine 10/13/21 Ryan May MD [address] [place], [place] [id number] Specialty Engineer Soils Vascular Surgery 10/13/21 Geronimo Medina, DO [address] [address] Skin Lap Bonder Cardiology 10/13/21 Tamika HARRELL Rn Liaison 09/26/17 Cleaning Technician Relationship Specialty Start Date End Date Daija Morton MD [address] [place] [address] PCP - General Internal Medicine 03/21/17 Kaye Ortega MD [address] [place] [address] General Surgery 09/21/21 Ye Coello MD [address] [place] [address] General Surgery 10/13/21 Emilie Jauregui PA-C [address] [place] [address] Specialty Engineer Soils Pulmonary and Critical Care Medicine 10/13/21 Ryan May MD [address] [place] [address] Specialty Engineer Soils Vascular Surgery 10/13/21 Geronimo Medina, DO [address] [address] Skin Lap Bonder Cardiology 10/13/21 Tamika HARRELL Rn Liaison 09/26/17 Cleaning Technician Relationship Specialty Start Date End Date Daija Morton MD [address] [place] [address] PCP - General Internal Medicine 03/21/17 Kaye Ortega MD [address] [place] [address] General Surgery 09/21/21 Ye Coello MD [address] [place] [address] General Surgery 10/13/21 Emilie Jauregui PA-C [address] [place] [address] Specialty Engineer Soils Pulmonary and Critical Care Medicine 10/13/21 Ryan May MD [address] [place], [place] 12864[address] Specialty Engineer Soils Vascular Surgery 10/13/21 Geronimo Medina, [address] [address] Skin Lap Bonder Cardiology 10/13/21 Tamika Almaguer [facility] Rn Liaison 09/26/17 Cleaning Technician Relationship Specialty Start Date End Date Daija Morton MD [address] [place] [address] PCP - General Internal Medicine 03/21/17 Kaye Ortega MD [address] [place] [address] General Surgery 09/21/21 Ye Coello MD [address] [place] [address] General Surgery 10/13/21 Emilie Jauregui PA-C [address] [place] [address] Specialty Engineer Soils Pulmonary and Critical Care Medicine 10/13/21 Ryan May MD [address] [place] [address] Specialty Engineer Soils Vascular Surgery 10/13/21 Geronimo Medina, DO [address] [address] Skin Lap Bonder Cardiology 10/13/21 Tamika Almaguer [employer] Rn Liaison 09/26/17 Cleaning Technician Relationship Specialty Start Date End Date Daija Morton MD [address] [place], [place] 717491 PCP - General Internal Medicine 03/21/17 Kaye Ortega MD [address] [place] [address] General Surgery 09/21/21 Ye Coello MD [address], [place] [id number] General Surgery 10/13/21 Emilie Jauregui PA-C [address] [place], [place] 351281 Specialty Engineer Soils Pulmonary and Critical Care Medicine 10/13/21 Ryan May MD [address] [place] [address] Specialty Engineer Soils Vascular Surgery 10/13/21 Geronimo Medina DO [address] [address] Skin Lap Bonder Cardiology 10/13/21 Tamika Almaguer [employer] Rn Liaison 09/26/17 Team Status: Inactive Member Role Status Dates Dr. Daija Morton MD Primary Care Provider Active Андрей RAIN Attending Provider Active Team Status: Inactive Member Role Status Dates Dr. Daija Morton MD Primary Care Provider Active Dr. Jaden Jauregui MD Emergency Provider Active Cleaning Technician Relationship Specialty Start Date End Date Daija Morton MD [address] [place] [address] PCP - General Internal Medicine 03/21/17 Kaye Ortega MD [address] [facility] [place] [address] General Surgery 09/21/21 Ye Coello MD [address] [place] [address] General Surgery 10/13/21 Emilie Jauregui PA-C [address] [facility] [place] [address] Specialty Engineer Soils Pulmonary and Critical Care Medicine 10/13/21 Ryan May MD [address] [place] [address] Specialty Engineer Soils Vascular Surgery 10/13/21 Geronimo Medina DO [address] [address] Skin Lap Bonder Cardiology 10/13/21 Tamika Almaguer [facility] Rn Liaison 09/26/17 Cleaning Technician Relationship Specialty Start Date End Date Daija Morton MD [address] [place] [address] PCP - General Internal Medicine 03/21/17 Kaye Ortega MD [address] [place] [address] General Surgery 09/21/21 Ye Coello MD [address] [place] [address] General Surgery 10/13/21 mEilie Jauregui PA-C [address] [place], [place] 382851 Specialty Engineer Soils Pulmonary and Critical Care Medicine 10/13/21 Ryan May MD [address] [place] [address] Specialty Engineer Soils Vascular Surgery 10/13/21 Geronimo Medina DO [address] [address] Skin Lap Bonder Cardiology 10/13/21 Tamika Ally Tripp [employer] Rn Liaison 09/26/17 Team Status: Inactive Member Role Status Dates Dr. Daija Morton MD Primary Care Provider Active Dr. Jaden Jauregui MD Attending Provider, Emergency Provider Active Team Status: Inactive Member Role Status Dates Dr. Daija Morton MD Primary Care Provider Active Dr. Huber Alvarado MD Emergency Provider Active Cleaning Technician Relationship Specialty Start Date End Date Daija Morton MD [address] [place], [place] 65027691 PCP - General Internal Medicine 03/21/17 Kaye Ortega MD [address] [place] [address] General Surgery 09/21/21 Ye Coello MD [address] [place], [place] 211615 General Surgery 10/13/21 Emilie Jauregui PA-C [address] [place], [place] 983661 Specialty Engineer Soils Pulmonary and Critical Care Medicine 10/13/21 Ryan May MD [address] [place] [address] Specialty Engineer Soils Vascular Surgery 10/13/21 Geronimo Medina DO [address] [address] Skin Lap Bonder Cardiology 10/13/21 Tamika Almaguer [facility] Rn Liaison 09/26/17 Team Status: Inactive Member Role Status Dates Dr. Daija Morton MD Primary Care Provider Active Dr. Huber Alvarado MD Attending Provider, Emergency Provider Active Cleaning Technician Relationship Specialty Start Date End Date Daija Morton MD [address] [place], [place] 528231 PCP - General Internal Medicine 03/21/17 Kaye Ortega MD [address] [place] [phone] General Surgery 09/21/21 Ye Coello MD [address] [place] [address] General Surgery 10/13/21 Emilie Jauregui PANeshaC [address] [place] [address] Specialty Engineer Soils Pulmonary and Critical Care Medicine 10/13/21 Ryan May MD [address] [facility] [place] [address] Specialty Engineer Soils Vascular Surgery 10/13/21 Geronimo Medina DO [address] [address] Skin Lap Bonder Cardiology 10/13/21 [facility] 09/26/17 Team Status: Active Member Role Status [...] MD Admit Provider, Attending Pro vider Active Cleaning Technician Relationship Specialty Start Date End Date Daija Morton MD [address] [place], [place] 528371 PCP - General Internal Medicine 03/21/17 Kaye Ortega MD [address] [place] [address] General Surgery 09/21/21 Ye Coello MD [address] [place], [place] 876655 General Surgery 10/13/21 Emilie Jauregui PA-C [address] [place] [address] Specialty Engineer Soils Pulmonary and Critical Care Medicine 10/13/21 Ryan May MD [address] [place] [address] Specialty Engineer Soils Vascular Surgery 10/13/21 Geronimo Medina DO [address] [address] Skin Lap Bonder Cardiology 10/13/21 Tamika Almaguer [employer] Rn Liaison 09/26/17 Team Status: Active Member Role Status [...] Dr. Elton Moore MD Other Provider Active Cleaning Technician Relationship Specialty Start Date End Date Daija Morton MD [address] [place] [address] PCP - General Internal Medicine 03/21/17 Kaye Ortega MD [address] [place] [address] General Surgery 09/21/21 Ye Coello MD [address] [place], [place] 522095 General Surgery 10/13/21 Emilie Jauregui PA-C [address] [place], [place] 917181 Specialty Engineer Soils Pulmonary and Critical Care Medicine 10/13/21 Ryan May MD [address] [facility] [place] [place] [address] Specialty Engineer Soils Vascular Surgery 10/13/21 Geronimo Medina DO [address] [address] Skin Lap Bonder Cardiology 10/13/21 Tamika Almaguer [facility] Rn Liaison 09/26/17 Cleaning Technician Relationship Specialty Start Date End Date Daija Morton MD [address] [place], [place] 853351 PCP - General Internal Medicine 03/21/17 Kaye Ortega MD [address] [place] [address] General Surgery 09/21/21 Ye Coello MD [address] [place] [address] General Surgery 10/13/21 Emilie Jauregui PA-C [address] [place] [address] Specialty Engineer Soils Pulmonary and Critical Care Medicine 10/13/21 Ryan May MD [address] [facility] [place] [address] Specialty Engineer Soils Vascular Surgery 10/13/21 Geronimo Medina DO [address] [place] [address] Skin Lap Bonder Cardiology 10/13/21 Tamika Almaguer [facility] Rn Liaison 09/26/17 Cleaning Technician Relationship Specialty Start Date End Date Daija Morton MD [address] [place], [place] 437501 PCP - General Internal Medicine 03/21/17 Kaye Ortega MD [address] [place] [address] General Surgery 09/21/21 Ye Coello MD [address] [place] [address] General Surgery 10/13/21 Emilie Jauregui PANeshaC [address] [place] [address] Specialty Engineer Soils Pulmonary and Critical Care Medicine 10/13/21 Ryan May MD [address] [place] [address] Specialty Engineer Soils Vascular Surgery 10/13/21 Geronimo Medina DO [address] [place] [address] Skin Lap Bonder Cardiology 10/13/21 Tamika Almaguer [employer] Rn Liaison 09/26/17 Team Status: Inactive Member Role Status [...] Provi ashley, Attending Provider, Referring Provider Active Cleaning Technician Relationship Specialty Start Date End Date Daija Morton MD [address] [place], [place] 638611 PCP - General Internal Medicine 03/21/17 Kaye Ortega MD [address] [place] [address] General Surgery 09/21/21 Ye Coello MD [address] [place], [place] 719405 General Surgery 10/13/21 Emilie Jauregui, PA-C [address] [place], [place] 173571 Specialty Engineer Soils Pulmonary and Critical Care Medicine 10/13/21 Ryan May MD [address] [place] [address] Specialty Engineer Soils Vascular Surgery 10/13/21 Geronimo Medina DO [address] [place] [address] Skin Lap Bonder Cardiology 10/13/21 Tamika Almaguer [employer] Rn Liaison 09/26/17 Team Status: Active Member Role Status [...] Admit Provider, Other Provider A ctive Dr. Rmoan Patel , DO Attending Provider Active Team [...] Dr. Ryan Guerin DO Attending Provider Active Cleaning Technician Relationship Specialty Start Date End Date Daija Morton MD [address] [place], [place] 429991 PCP - General Internal Medicine 03/21/17 Kaye Ortega MD [address] [place] [address] General Surgery 09/21/21 Ye Coello MD [address] [place], [place] 064195 General Surgery 10/13/21 Emilie Jauregui PA-C [address] [facility] [place], [place] [address] Specialty Engineer Soils Pulmonary and Critical Care Medicine 10/13/21 Ryan May MD [address] [place] [address] Specialty Engineer Soils Vascular Surgery 10/13/21 Geronimo Medina DO [address] [place] [address] Skin Lap Bonder Cardiology 10/13/21 Tamika Canales [facility] Rn Liaison 09/26/17 Cleaning Technician Relationship Specialty Start Date End Date Daija Morton MD [address] [place], [place] 001611 PCP - General Internal Medicine 03/21/17 Kaye Ortega MD [address] [place] [address] General Surgery 09/21/21 Ye Coello MD [address] [place] [address] General Surgery 10/13/21 Emilie Jauregui PA-C [address] [place] [address] Specialty Engineer Soils Pulmonary and Critical Care Medicine 10/13/21 Ryan May MD [address] [place] [address] Specialty Engineer Soils Vascular Surgery 10/13/21 Geronimo Medina DO [address] [place] [address] Skin Lap Bonder Cardiology 10/13/21 Tamika HARRELL Rn Liaison 09/26/17 Cleaning Technician Relationship Specialty Start Date End Date Daija Morton MD [address] [place], [place] 881401 PCP - General Internal Medicine 03/21/17 Kaye Ortega MD [address] [place] [address] General Surgery 09/21/21 Ye Coello MD [address] [place] [address] General Surgery 10/13/21 Emilie Jauregui PA-C [address] [place] [address] Specialty Engineer Soils Pulmonary and Critical Care Medicine 10/13/21 Ryan May MD [address] [place] [address] Specialty Engineer Soils Vascular Surgery 10/13/21 Geronimo Medina DO [address] [place] [address] Skin Lap Bonder Cardiology 10/13/21 Tamika HARRELL Rn Liaison 09/26/17 Cleaning Technician Relationship Specialty Start Date End Date Daija Morton MD [address] [place], [place] 128991 PCP - General Internal Medicine 03/21/17 Kaye Ortega MD [address] [place] [address] General Surgery 09/21/21 Ye Coello MD [address] [place], [place] [address] General Surgery 10/13/21 Emilie Jauregui PA-C [address] [place] [address] Specialty Engineer Soils Pulmonary and Critical Care Medicine 10/13/21 Ryan May MD [address] [place] [address] Specialty Engineer Soils Vascular Surgery 10/13/21 Geronimo Medina DO [address] [place] [address] Skin Lap Bonder Cardiology 10/13/21 Tamika Almaguer [facility] Rn Liaison 09/26/17 Cleaning Technician Relationship Specialty Start Date End Date Daija Morton MD [address] [place] [address] PCP - General Internal Medicine 03/21/17 Kaye Ortega MD [address] [place] [address] General Surgery 09/21/21 Ye Coello MD [address] [place] [address] General Surgery 10/13/21 Emilie Jauregui PA-C [address] [place] [address] Specialty Engineer Soils Pulmonary and Critical Care Medicine 10/13/21 Ryan May MD [address] [place] [address] Specialty Engineer Soils Vascular Surgery 10/13/21 Geronimo Medina DO [address] [place] [address] Skin Lap Bonder Cardiology 10/13/21 Tamika Almaguer [facility] Rn Liaison 09/26/17 Cleaning Technician Relationship Specialty Start Date End Date Daija Morton MD [address] [place] [address] PCP - General Internal Medicine 03/21/17 Kaye Ortega MD [address] [place] [address] General Surgery 09/21/21 Ye Coello MD [address] [place] [address] General Surgery 10/13/21 Emilie Jauregui PA-C [address] [facility] [address] Specialty Engineer Soils Pulmonary and Critical Care Medicine 10/13/21 Ryan May MD [address] [place] [address] Specialty Engineer Soils Vascular Surgery 10/13/21 Geronimo Medina DO [address] [place] [address] Skin Lap Bonder Cardiology 10/13/21 Tamika HARRELL Rn Liaison 09/26/17 Cleaning Technician Relationship Specialty Start Date End Date Daija Morton MD [address] [place], [place] 961141 PCP - General Internal Medicine 03/21/17 Kaye Ortgea MD [address] [place] [address] General Surgery 09/21/21 Ye Coello MD [address] [place] [address] General Surgery 10/13/21 Emilie Jauregui PANeshaC [address] [place] [address] Specialty Engineer Soils Pulmonary and Critical Care Medicine 10/13/21 Ryan May MD [address] [facility] [place] [place] [address] Specialty Engineer Soils Vascular Surgery 10/13/21 Geronimo Medina DO [address] [place] [address] Skin Lap Bonder Cardiology 10/13/21 Tamika HARRELL Rn Liaison 09/26/17 Cleaning Technician Relationship Specialty Start Date End Date Daija Morton MD [address] [place] [address] PCP - General Internal Medicine 03/21/17 Kaye Ortega MD [address] [place] [address] General Surgery 09/21/21 Ye Coello MD [address] [place] [address] General Surgery 10/13/21 Emilie Jauregui PA-C [address] [facility] [place] [address] Specialty Engineer Soils Pulmonary and Critical Care Medicine 10/13/21 Ryan May MD [address] [place] [address] Specialty Engineer Soils Vascular Surgery 10/13/21 Geronimo Medina DO [address] [place] [address] Skin Lap Bonder Cardiology 10/13/21 Tamika Almaguer [facility] Rn Liaison 09/26/17 Cleaning Technician Relationship Specialty Start Date End Date Daija Morton MD [address] [place], [place] 573926 [phone] PCP - General Internal Medicine 03/21/17 Kaye Ortega MD [address] [facility] [place] [address] General Surgery 09/21/21 Ye Colelo MD [address] [place] [address] General Surgery 10/13/21 Emilie Jauregui PA-C [address] [place], [place] 081159 [phone] Specialty Engineer Soils Pulmonary and Critical Care Medicine 10/13/21 Ryan May MD [address] [place] [address] Specialty Engineer Soils Vascular Surgery 10/13/21 Geronimo Medina DO [address] [place] [address] Skin Lap Bonder Cardiology 10/13/21 Tamika HARRELL Rn Liaison 09/26/17 Cleaning Technician Relationship Specialty Start Date End Date Daija Morton MD [address] [place] [address] PCP - General Internal Medicine 03/21/17 Beatriz Correa CNP [address] [place] [address] Referring 09/28/20 10/12/21 Daija Morton MD [address] [place] [address] Home Care Provider Internal Medicine 09/28/20 10/12/21 Fco Franklin, ОЛЕГ [address] [place] [address] Adult Basic Education Instructor 10/08/20 12/21/20 Tamika HARRELL Rn Liaison 09/26/17 Cleaning Technician Relationship Specialty Start Date End Date Daija Morton MD [address] [place] [address] PCP - General Internal Medicine 03/21/17 Kaye Ortega MD [address] [place] [address] General Surgery 09/21/21 Ye Coello MD [address] [place], [place] [address] General Surgery 10/13/21 Emilie Jauregui PA-Edilma [address] [facility] [address] Specialty Engineer Soils Pulmonary and Critical Care Medicine 10/13/21 Ryan May MD [address] [place] [address] Specialty Engineer Soils Vascular Surgery 10/13/21 Geronimo Medina DO [address] [place] [address] Skin Lap Bonder Cardiology 10/13/21 Tamika Almaguer [facility] Rn Liaison 09/26/17 Cleaning Technician Relationship Specialty Start Date End Date Daija Morton MD [address] [place], [place] [phone] PCP - General Internal Medicine 03/21/17 Kaye Ortega MD [address] [facility] [place] [address] General Surgery 09/21/21 Ye Coello MD [address] [place] [address] General Surgery 10/13/21 Emilie Jauregui PA-C [address] [facility] [place] [address] [phone] Specialty Engineer Soils Pulmonary and Critical Care Medicine 10/13/21 Ryan May MD [address] [place] [address] Specialty Engineer Soils Vascular Surgery 10/13/21 Geronimo Medina DO [address] [place] [address] Skin Lap Bonder Cardiology 10/13/21 Tamika HARRELL Rn Liaison 09/26/17 Cleaning Technician Relationship Specialty Start Date End Date Daija Morton MD [address] [place], [place] 097351 PCP - General Internal Medicine 03/21/17 Kaye Ortega MD [address] [place] [address] General Surgery 09/21/21 Ye Coello MD [address] [place], [place] 350715 General Surgery 10/13/21 Emilie Jauregui PA-C [address] [place], [place] 669061 Specialty Engineer Soils Pulmonary and Critical Care Medicine 10/13/21 Ryan May MD [address] [place] [address] Specialty Engineer Soils Vascular Surgery 10/13/21 Geronimo Medina DO [address] [place] [address] Skin Lap Bonder Cardiology 10/13/21 Tamika HARRELL Rn Liaison 09/26/17 Cleaning Technician Relationship Specialty Start Date End Date Daija Morton MD [address] [place], [place] 984331 PCP - General Internal Medicine 03/21/17 Kaye Ortega MD [address] [place] [address] General Surgery 09/21/21 Ye Coello MD [address] [place], [place] 278965 General Surgery 10/13/21 Emilie Jauregui PA-C [address] [place], [place] 090211 Specialty Engineer Soils Pulmonary and Critical Care Medicine 10/13/21 Ryan May MD [address] [place] [address] Specialty Engineer Soils Vascular Surgery 10/13/21 Geronimo Medina DO [address] [place] [address] Skin Lap Bonder Cardiology 10/13/21 Tamika Almaguer [facility] Rn Liaison 09/26/17 Team Status: Active Member Role Status Dates Dr. aDija Morton MD Primary Care Provider Active Team [...] Provider Active Start: August 25, 2024 Dr. aJden Jauregui MD Emergency Provider Active Start: August 25, 2024 Dr. Lisha Talamantes DO Admit Provider Active Start : August 25, 2024 Dr. Lisha Talamanets DO Attending Provider Active S tart: August [...] November 05, 2024 End: November 05, 2024 Cleaning Technician Relationship Specialty Start Date End Date Daija Morton MD [address] [place], [place] 735951 PCP - General Internal Medicine 03/21/17 Kaye Ortega MD [address] [place] [address] General Surgery 09/21/21 Ye Coello MD [address] [place], [place] [address] General Surgery 10/13/21 Emilie Jauregui PA-C [address] [place], [place] [address] Specialty Engineer Soils Pulmonary and Critical Care Medicine 10/13/21 Ryan May MD [address] [place] [address] Specialty Engineer Soils Vascular Surgery 10/13/21 Geronimo Medina DO [address] [place] [address] Skin Lap Bonder Cardiology 10/13/21 Anjel Braga APRN.PATIENT SERVICES MANAGER [address] [place] [address] Movement Assembler Internal Medicine 05/26/24 Tamika HARRELL Rn Liaison 09/26/17 Cleaning Technician Relationship Specialty Start Date End Date Daija Morton MD [address] [place] [address] PCP - General Internal Medicine 03/21/17 Kaye Ortega MD [address] [facility] [place] [phone] General Surgery 09/21/21 Ye Coello MD [address] [place] [address] General Surgery 10/13/21 Emilie Jauregui PA-C [address] [place], [place] [address] Specialty Engineer Soils Pulmonary and Critical Care Medicine 10/13/21 Ryan May MD [address] [place] [address] Specialty Engineer Soils Vascular Surgery 10/13/21 Geronimo Medina DO [address] [place] [address] Skin Lap Bonder Cardiology 10/13/21 Anjel Braga APRN.PATIENT SERVICES MANAGER [address] [place] [address] Movement Assembler Internal Medicine 05/26/24 Tamika Almaguer [facility] Rn Liaison 09/26/17 Cleaning Technician Relationship Specialty Start Date End Date Daija Morton MD [address] [place] [address] PCP - General Internal Medicine 03/21/17 Kaye Ortega MD [address] [place] [address] General Surgery 09/21/21 Ye Coello MD [address] [place], [place] [address] General Surgery 10/13/21 Emilie Jauregui PA-C [address] [place], [place] [address] Specialty Engineer Soils Pulmonary and Critical Care Medicine 10/13/21 Ryan May MD [address] [facility] [place] [address] Specialty Engineer Soils Vascular Surgery 10/13/21 Geronimo Medina DO [address] [place] [address] Skin Lap Bonder Cardiology 10/13/21 Anjel Braga APRN.PATIENT SERVICES MANAGER [address] [place] [address] Movement Assembler Internal Medicine 05/26/24 [facility] Rn Liaison 09/26/17 Cleaning Technician Relationship Specialty Start Date End Date Daija Morton MD [address] [place], [place] [id number] [phone] PCP - General Internal Medicine 03/21/17 Kaye Ortega MD [address] [place] [address] General Surgery 09/21/21 Ye Coello MD [address] [place], [place] [address] General Surgery 10/13/21 Emilie Jauregui PA-C [address] [place] [address] Specialty Engineer Soils Pulmonary and Critical Care Medicine 10/13/21 Ryan May MD [address] [facility] [place] [id number] Specialty Engineer Soils Vascular Surgery 10/13/21 Geronimo Medina DO [address] [place] [address] Skin Lap Bonder Cardiology 10/13/21 Anjel Braga APRN.PATIENT SERVICES MANAGER [address] [place], [place] [id number] Movement Assembler Internal Medicine 05/26/24 Tamikadestiny Almaguer [facility] Rn Liaison 09/26/17 Cleaning Technician Relationship Specialty Start Date End Date Daija Morton MD [address] [place] [address] PCP - General Internal Medicine 03/21/17 Kaye Ortega MD [address] [place] [address] General Surgery 09/21/21 Ye Coello MD [address] [place], [place] [address] General Surgery 10/13/21 Emilie Jauregui PA-C [address] [place], [place] [address] Specialty Engineer Soils Pulmonary and Critical Care Medicine 10/13/21 Ryan May MD [address] [facility] [place] [address] Specialty Engineer Soils Vascular Surgery 10/13/21 Geronimo Medina DO [address] [place] [address] Skin Lap Bonder Cardiology 10/13/21 Anjel Braga APRN.PATIENT SERVICES MANAGER [address] [place] [address] Movement Assembler Internal Medicine 05/26/24 [facility] Rn Liaison 09/26/17 Cleaning Technician Relationship Specialty Start Date End Date Daija Morton MD [address] [place], [place] [address]881 PCP - General Internal Medicine 03/21/17 Kaye Ortega MD [address] [place] [phone] General Surgery 09/21/21 Ye Coello MD [address] [place], [place] [id number] General Surgery 10/13/21 Emilie Jauregui PANeshaC [address] [place] [address], [place] 506[address] Specialty Engineer Soils Pulmonary and Critical Care Medicine 10/13/21 Ryan May MD [address] [place] [address] Specialty Engineer Soils Vascular Surgery 10/13/21 Geronimo Medina DO [address] [place] [address] Skin Lap Bonder Cardiology 10/13/21 Anjel Braga APRN.PATIENT SERVICES MANAGER [address] [place] [address] Movement Assembler Internal Medicine 05/26/24 Tamika HARRELL Rn Liaison 09/26/17 Team Status: Active Member Role/Relationship Status Dates Dr. Daija Morton MD Primary Care Provider Active Team Status: Active Member Role/Relationship Status Dates Dr. Daija Morton MD Primary [...] August 25, 2024 Team Status: Active Member Role/Relationship Status Dates Dr. Daija Morton MD Primary [...] August 26, 2024 Team Status: Active Member Role/Relationship Status Dates Dr. Daija Morton MD Primary [...] August 27, 2024 Team Status: Inactive Member Role/Relationship Status Dates Dr. Daija Morton MD Primary [...] September 02, 2024 Team Status: Active Member Role/Relationship Status Dates Dr. Daija Morton MD Primary [...] August 28, 2024 Team Status: Active Member Role/Relationship Status Dates Dr. Daija Morton MD Primary [...] August 29, 2024 Team Status: Active Member Role/Relationship Status Dates Dr. Daija Morton MD Primary [...] August 30, 2024 Team Status: Active Member Role/Relationship Status Dates Dr. Daija Morton MD Primary [...] August 31, 2024 Team Status: Active Member Role/Relationship Status Dates Dr. Daija Morton MD Primary [...] September 01, 2024 Team Status: Active Member Role/Relationship Status Dates Dr. Daija Morton MD Primary [...] September 02, 2024 Team Status: Active Member Role/Relationship Status Dates Dr. Daija Morton MD Primary Care Provider Active Start: October 16, 2024 Dr. Carla RAIN MD Attending Provider Active Start: October 16, 2024 Team Status: Inactive Member Role/Relationship Status Dates Dr. Daija Morton MD Primary Care Provider Active Start: November 05, 2024 End: November 05, 2024 Dr. Carla RAIN MD Attending Provider Active Start: November 05, 2024 End: November 05, 2024 Team Status: Active Member Role/Relationship Status Dates Dr. Daija Morton MD Primary Care Provider Active Start: December 02, 2024 Dr. Carla RAIN MD Attending Provider Active Start: December 02, 2024 Team Status: Active Member Role/Relationship Status Dates Dr. Daija Morton MD Primary Care Provider Active Start: December 13, 2024 Dr. Charis Walker DO Emergency Provider Active S tart: December 13, 2024 Dr. Shilpa Contreras MD Admit Provider Active St art: December 13, 2024 Dr. Shilpa Contreras MD Attending Provider Active Start: December 13, 2024 Team Status: Active Member Role/Relationship Status Dates Dr. Daija Morton MD Primary Care Provider Active Start: December 13, 2024 Dr. Charis Walker DO Emergency Provider Active S tart: December 13, 2024 Dr. Shilpa Contreras MD Admit Provider Active St art: December 13, 2024 Dr. Shilpa Contreras MD Attending Provider Active Start: December 13, 2024 Dr. Shilpa Contreras MD Other Provider Active St art: December 13, 2024 Team Status: Inactive Member Role/Relationship Status Dates Dr. Daija Morton MD Primary Care Provider Active Start: December 13, 2024 End: December 16, 2024 Dr. Charis Walker DO Emergency Provider Active S tart: December 13, 2024 End: December 16, 2024 Dr. Shilpa Contreras MD Admit Provider Active St art: December 13, 2024 End: December 16, 2024 Dr. Shilpa Contreras MD Other Provider Active St art: December 13, 2024 End: December 16, 2024 Dr. Lisha Talamantes , Attending Provider Active S tart: December 13, 2024 End: December 16, 2024 Team Status: Active Member Role/Relationship Status Dates Dr. Daija Morton MD Primary Care Provider Active Start: December 14, 2024 Dr. Charis Walker DO Emergency Provider Active S tart: December 14, 2024 Dr. Shilpa Contreras MD Admit Provider Active St art: December 14, 2024 Dr. Shilpa Contreras MD Other Provider Active St art: December 14, 2024 Dr. Lisha Talamantes DO Attending Provider Active S tart: December 14, 2024 Dr. Lisha Talamantes DO Other Provider Active Start : December 14, 2024 Team Status: Active Member Role/Relationship Status Dates Dr. Daija Morton MD Primary Care Provider Active Start: December 15, 2024 Dr. Charis Walker DO Emergency Provider Active S tart: December 15, 2024 Dr. Shilpa Contreras MD Admit Provider Active St art: December 15, 2024 Dr. Shilpa Contreras MD Other Provider Active St art: December 15, 2024 Dr. Lisha Talamantes DO Attending Provider Active S tart: December 15, 2024 Dr. Lisha Talamantes DO Other Provider Active Start : December 15, 2024 Team Status: Active Member Role/Relationship Status Dates Dr. Daija Morton MD Primary Care Provider Active Start: December 16, 2024 Dr. Charis Walker DO Emergency Provider Active S tart: December 16, 2024 Dr. Shilpa Contreras MD Admit Provider Active St art: December 16, 2024 Dr. Shilpa Contreras MD Other Provider Active St art: December 16, 2024 Dr. Lisha Talamantes DO Attending Provider Active S tart: December 16, 2024 Dr. Lisha Talamantes DO Other Provider Active Start : December 16, 2024 Cleaning Technician Relationship Specialty Start Date End Date Daija Morton MD [address] [place], [place] [id number] PCP - General Internal Medicine 03/21/17 Kaye Ortega MD [address] [place] [address] General Surgery 09/21/21 Ye Coello MD [address] [place], [place] [address] General Surgery 10/13/21 Emilie Jauregui PA-C [address] [place] [address], [place] [address] Specialty Engineer Soils Pulmonary and Critical Care Medicine 10/13/21 Ryan May MD [address] [place] [address] Specialty Engineer Soils Vascular Surgery 10/13/21 Geronimo Medina DO [address] [place], [place] [id number] Skin Lap Bonder Cardiology 10/13/21 Anjel Braga APRN.PATIENT SERVICES MANAGER [address] [place], [place] [address] Movement Assembler Internal Medicine 05/26/24 Tamika Almaguer [facility] Rn Liaison 09/26/17 Cleaning Technician Relationship Specialty Start Date End Date Daija Morton MD [address] [place], [place] [address] PCP - General Internal Medicine 03/21/17 Kaye Ortega MD [address] [place] [phone] General Surgery 09/21/21 Ye Coello MD [address] [place] [address] General Surgery 10/13/21 Emilie Jauregui PA-C [address] [place] [address] Specialty Engineer Soils Pulmonary and Critical Care Medicine 10/13/21 Ryan May MD [address] [place] [address] Specialty Engineer Soils Vascular Surgery 10/13/21 Geronimo Medina DO [address] [place] [address] Skin Lap Bonder Cardiology 10/13/21 Anjel Braga APRN.CNP [address] [place] [address] Movement Assembler Internal Medicine 05/26/24 Tamikadestiny Almaguer [facility] Rn Liaison 09/26/17 Team Status: Active Member Role/Relationship Status Dates Dr. Daija Morton MD Primary Care Provider Active Start: December 17, 2024 Dr. Seth Pritchard DO Emergency Provider Active Start: December 17, 2024 Dr. Roman Patel DO Admit Provider Active Start: December 17, 2024 Dr. Roman Patel DO Attending Provider Active Start: December 17, 2024 Goals (unrecognized section and content) Goals may [...] BE BASED ON THE PRIMARY CLINICAL RECORDS. [facility]. provides no warranty or guarantee of the accuracy or completeness of information in this document.
[2024-12-18] VITALS (14 sets, daily range): BP systolic 155–214; BP diastolic 72–116; PULSE 61–84; RESP 16–22; TEMP 36.1–36.6; O2SAT 95–98; BMI 24.5
--- NOTE | 2024-12-18 07:27 | ECHOL_ITS ---
Reason For Study Reason For Study: STROKE Procedure This was a limited 2D transthoracic echocardiogram. The study was technically difficult. PT was uncooperative/semi combative. Exam performed portable in patient room. Left Ventricle Normal left ventricle. The estimated ejection fraction is 55???60 %. Right Ventricle Normal right ventricle. Normal systolic function. Mitral Valve Mitral valve not well visualized. Aortic Valve The aortic valve is not well visualized in the short axis view. Pulmonic Valve The pulmonic valve is not well visualized. Great Vessels The aortic root is not well visualized. Pericardium/Pleural No pericardial effusion. MMode/2D Measurements & Calculations LVIDd: 4.2 cm IVSd: 1.1 cm Ao root diam: 3.7 cm LVIDs: 2.9 cm LVPWd: 1.1 cm FS: 30.9 % LA dimension(2D): 3.6 cm ECHO/Echo, Limited Study Interpretation Summary Technically difficult study With limited views. Overall LV systolic function within normal. The estimated ejection fraction is 55???60 %. Previous study in 2023 as well showed technically difficult study with overall normal LV systolic function. Ordering Physician: Lisha Talamantes Referring Physician: Daija Douglas Performed By: Susie Sands, RDCS, RVT
--- NOTE | 2024-12-18 08:29 | NURSING ---
Nightshift RN and dayshift RN completed bedside [facility] handoff. Nightshift RN said pt presented the same as he had all night. This RN interpreted pts score as higher than nightshift RN had. See [facility] documentation.
[2024-12-18] MEDS: 0.9% Saline Lock 10 ML Syringe IV (10:33)
[2024-12-18] MEDS: levETIRAcetam IV 1,000 MG/100 ML BAG 400 MG IV ×2 (10:33→21:55)
[2024-12-18 10:50] LABS: Hematocrit 41.9 % (40-54); Hemoglobin 12.8 g/dL (13.0-16.5); Mean Corp Hgb Conc 30.5 g/dL (32-36); Mean Corpuscular Volume 90.7 fL (80-94); Mean Platelet Vol. 9.9 fl (6.2-12.0); Platelet Count 386 K/mm3 (150-450); RBC Distribution Width CV 13.7 % (11.6-14.6); RBC Distribution Width SD 45.7 fl (35.1-43.9); Red Blood Count 4.62 M/mm3 (4.6-6.2); White Blood Count 10.4 K/mm3 (4.4-11.0)
[2024-12-18 11:43] LABS: Anion Gap 12 (5-15); BUN 22 mg/dL (4-19); BUN/Creat Ratio 20.6 RATIO (10-20); Calcium,Total 9.7 mg/dL (7.6-11.0); Carbon Dioxide 26.5 mmol/L (21.0-32.0); Chloride 103 mmol/L (98-108); Estimated Creatinine Clearance 58.25 ml/min (50-250); Glucose 95 mg/dL (70-99); Potassium 4.2 mmol/L (3.3-5.1)
--- NOTE | 2024-12-18 12:49 | STROKE.CONS ---
Assessment and Plan: Stroke Assessment/Plan PEDRO PABLO SIERRA is a 74 M with a history of atrial fibrillation, HTN, COPD exacerbation who presents for evaluation of aphasia and right facial droop from left MCA stroke from atrial fibrillation (not on anticoagulation) Neurological examination shows Global aphasia, right facial droop, poorly cooperative but moved all extremities. Neuroimaging shows MRI: Left MCA stroke. CTA: R ICA 75% and left ICA 50% stenosis Continue ASA and Plavix If his gait is stable can be started on AC. If he is unstable then unfortunately he is not a candidate for AC. Continue statin to keep LDL <70 Please obtain LDL, HbA1C. HTN: Permissive HTN acutely and gradual normalization correction Speech and swallow evaluation PT, OT evaluation Thanks for consult. Please call with questions HPI Consult Data Date of Consult: 12/18/24 HPI Narrative HPI Narrative: PEDRO PABLO SIERRA, is a 74 M who presents who presented to [facility] ED on 12/17/2024 with dysarthria and right-sided facial droop. he was recently hospitalized here for acute on chronic hypoxic and hypercapnic respiratory failure secondary to a COPD exacerbation with good improvement with IV steroids and scheduled nebulizers and was discharged home on a prolonged prednisone taper. Family notes that was doing fine until this afternoon when he acutely developed a right-sided facial droop with drooling and had significant difficulty with speaking. With the symptoms, they called EMS to bring him in. Last known well was at noon. Teleneurology noted his NIHSS score was 10 consistent with a moderate stroke. Unfortunately, he was outside the window for TNK. He has history of A-fib and was previously on Coumadin but has been off now since at least March 2024 due to history of falls. Family thought the patient was still on Coumadin for A-fib, even though from our records he has been off since at least March of last year. Most recent INR was 0.9 on 12/17. EKG in the ED showed rate controlled A-fib. CT brain was unremarkable. CTA head/neck showed right ICA stenosis of 75% and left ICA stenosis of 50%, no other acute findings. [facility] Medical History Weakness Debility Failure to thrive Compression fx, lumbar spine Hypertension Falls Hypertension Closed fracture of right superior pubic ramus Multiple falls Compression fracture of thoracic vertebra History of atrial fibrillation Iron deficiency anemia Chronic respiratory failure with hypoxia Osteoporosis Lumbar compression fracture Compression fracture Obstructive sleep apnea Hyperlipidemia Asthma Peripheral arterial occlusive disease Seizure disorder Chronic obstructive pulmonary disease Coronary artery disease Lupus anticoagulant disorder BPH (benign prostatic hyperplasia) Ulcerative colitis Peripheral vascular disease Anxiety COPD (chronic obstructive pulmonary disease) with emphysema Closed fracture of right inferior pubic ramus Acute UTI COPD (chronic obstructive pulmonary disease) UTI (urinary tract infection) Depression Diabetes Kidney stones Chronic pain Pancreatitis On home oxygen therapy Irregular heart beat Atrial fibrillation Stroke/cerebrovascular accident Smoker Falls frequently Seizures Sleep apnea COPD (chronic obstructive pulmonary disease) Asthma High cholesterol Tobacco abuse Home Medications ?Medication ?Instructions ?Recorded ?Last Taken ?Type tamsulosin 0.4 mg capsule 0.4 mg PO QHS bph 01/26/14 03/28/23 History finasteride 5 mg tablet 5 mg PO DAILY prostate 11/14/14 12/13/24 08:58 History atorvastatin 40 mg tablet 40 mg PO QHS Cholesterol 09/23/15 12/12/24 History mirtazapine 15 mg tablet 15 mg PO QHS anti depressant 08/16/19 12/12/24 20:59 History clopidogrel 75 mg tablet 75 mg PO DAILY blood thinner 10/25/19 12/13/24 History losartan 100 mg tablet 100 mg PO DAILY Blood pressure 08/19/21 12/13/24 08:58 History pantoprazole 40 mg tablet,delayed 40 mg PO DAILY GERD 08/19/21 12/13/24 08:00 History release nifedipine 90 mg tablet,extended 90 mg PO DAILY blood pressure 11/25/21 12/13/24 08:59 History release alendronate 70 mg tablet 70 mg PO QWEEK OSTEOPROSIS #1 TAB 11/30/21 12/09/24 Rx metoprolol tartrate 25 mg tablet 25 mg PO DAILY Blood pressure 03/30/23 12/13/24 08:59 History sennosides 8.6 mg-docusate sodium 2 tab PO BID PRN PRN Constipation 04/04/23 Unknown Rx 50 mg tablet (Stool #0 tabs Softener-Stimulant Laxative) albuterol sulfate 90 mcg/actuation 1 puff inhalation Q8H SOB 08/22/23 12/13/24 08:53 History aerosol inhaler carbamazepine 200 mg 200 mg PO Q12H SEIZURES 08/22/23 12/13/24 08:55 History tablet,extended release,12 hr cholecalciferol (vitamin D3) 50 50 mcg PO DAILY SUPPLEMENT 08/22/23 12/13/24 History mcg (2,000 unit) tablet sertraline 100 mg tablet 100 mg PO DAILY DEPRESSION 08/22/23 Unknown History ergocalciferol (vitamin D2) 1,250 1,250 mcg PO Q7D SUPPLEMENT #0 caps 04/10/24 12/13/24 08:58 Rx mcg (50,000 unit) capsule (Vitamin D2) clonidine HCl 0.1 mg tablet 0.1 mg PO TID HTN #0 tabs 09/02/24 Unknown Rx dextromethorphan-guaifenesin ER 60 1 tab PO BID COUGH 7 days #14 tabs 09/02/24 12/13/24 Rx mg-1,200 mg tab,extend release,12hr nicotine 14 mg/24 hr daily 14 mg transdermal DAILY NICOTINE 09/02/24 Unknown Rx transdermal patch 28 days #28 ea prednisone 20 mg tablet 40 mg (2 x 20 mg) PO BREAKFAST 1 09/02/24 Unknown Rx day #2 tabs acetaminophen 500 mg tablet 1,000 mg PO Q8 PRN fever or pain 12/13/24 Unknown History albuterol sulfate 2.5 mg/3 mL 2.5 mg continuous nebulization 12/13/24 12/13/24 History (0.083 %) solution for nebulization DAILY SHORTNESS OF BREATH clonidine 0.2 mg/24 hr weekly 1 patch topical QWEEK BLOOD 12/13/24 Unknown History transdermal patch PRESSURE gabapentin 100 mg capsule 100 mg PO DAILY PAIN 12/13/24 12/13/24 08:58 History nicotine 21 mg/24 hr daily 1 patch transdermal DAILY #14 ea 12/16/24 Unknown Rx transdermal patch (Nicoderm CQ) prednisone 10 mg tablet 10 mg PO DAILY #40 tabs 12/16/24 Unknown Rx Allergy/AdvReac Type Severity Reaction Status Date / Time No Known Allergies Allergy Verified 04/06/24 11:12 Family History Mother Heart disease CVA (cerebral vascular accident) Hypertension Father Heart disease CVA (cerebral vascular accident) Hypertension Surgical History S/P arterial stent History of appendectomy Social History household members: family 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 Smoking Status: Current every day smoker tobacco type: cigarettes alcohol intake: former details: Former alcoholic quit several years ago substance use type: does not use caffeine: Yes Type: coffee Number of servings: 3 Vital Signs Vital Signs Vital Signs: 12/17/24 15:53 12/17/24 16:11 12/17/24 16:21 Temperature 98.5 F 98.5 F Temperature Source Oral Oral Pulse Rate 68 70 Respiratory Rate 20 H 18 Respiratory Effort Respiratory Depth Respiratory Pattern Blood Pressure 184/76 H 184/70 H Blood Pressure Mean 112 108 Blood Pressure Source Blood Pressure Position Blood Pressure Location Pulse Ox 98 97 98 Oxygen Delivery Method Room Air Nasal Cannula Nasal Cannula Oxygen Flow Rate (L/min) 2 2 12/17/24 16:23 12/17/24 16:30 12/17/24 17:00 Temperature Temperature Source Pulse Rate 67 69 71 Respiratory Rate Respiratory Effort Respiratory Depth Respiratory Pattern Blood Pressure 173/74 H 169/83 H 178/80 H Blood Pressure Mean 107 111 112 Blood Pressure Source Blood Pressure Position Blood Pressure Location Pulse Ox 98 98 98 Oxygen Delivery Method Nasal Cannula Oxygen Flow Rate (L/min) 2 12/17/24 17:30 12/17/24 18:00 12/17/24 18:14 Temperature 98.5 F Temperature Source Pulse Rate 65 64 64 Respiratory Rate 16 Respiratory Effort Respiratory Depth Respiratory Pattern Blood Pressure 169/66 H 197/91 H 197/91 H Blood Pressure Mean 100 126 126 Blood Pressure Source Blood Pressure Position Blood Pressure Location Pulse Ox 99 99 99 Oxygen Delivery Method Nasal Cannula Nasal Cannula Oxygen Flow Rate (L/min) 2 2 12/17/24 18:56 12/17/24 19:50 12/17/24 19:50 Temperature 98.5 F Temperature Source Oral Pulse Rate 83 68 Respiratory Rate 22 H 28 H Respiratory Effort Respiratory Depth Respiratory Pattern Tachypnea Blood Pressure 201/119 H Blood Pressure Mean 146 Blood Pressure Source Monitor Blood Pressure Position Semi-Fowlers Blood Pressure Location Right Arm Pulse Ox 97 96 Oxygen Delivery Method Nasal Cannula Nasal Cannula Oxygen Flow Rate (L/min) 2 2 12/17/24 22:00 12/17/24 22:00 12/18/24 02:00 Temperature 97.0 F L 97.0 F L Temperature Source Temporal Temporal Pulse Rate 63 79 Respiratory Rate 18 18 Respiratory Effort Normal Respiratory Depth Normal Respiratory Pattern Normal Blood Pressure 164/103 H 155/116 H Blood Pressure Mean 123 129 Blood Pressure Source Monitor Monitor Blood Pressure Position Semi-Fowlers Semi-Fowlers Blood Pressure Location Right Arm Right Arm Pulse Ox 96 98 Oxygen Delivery Method Nasal Cannula Nasal Cannula Nasal Cannula Oxygen Flow Rate (L/min) 2 2 12/18/24 06:00 12/18/24 07:04 12/18/24 07:04 Temperature 97.0 F L Temperature Source Temporal Pulse Rate 71 69 Respiratory Rate 18 20 H Respiratory Effort Respiratory Depth Respiratory Pattern Tachypnea Blood Pressure 176/82 H Blood Pressure Mean 113 Blood Pressure Source Monitor Blood Pressure Position Semi-Fowlers Blood Pressure Location Right Arm Pulse Ox 97 97 Oxygen Delivery Method Nasal Cannula Nasal Cannula Oxygen Flow Rate (L/min) 2 2 12/18/24 07:30 12/18/24 07:40 12/18/24 10:21 Temperature 97.7 F L Temperature Source Axillary Pulse Rate 63 Respiratory Rate 20 H Respiratory Effort Normal Non-Labored Respiratory Depth Normal Respiratory Pattern Normal Blood Pressure 192/92 H Blood Pressure Mean 125 Blood Pressure Source Monitor Blood Pressure Position Semi-Fowlers Blood Pressure Location Right Arm Pulse Ox 98 Oxygen Delivery Method Room Air Nasal Cannula Oxygen Flow Rate (L/min) 2 2 12/18/24 10:30 Temperature 97.8 F Temperature Source Axillary Pulse Rate 61 Respiratory Rate 18 Respiratory Effort Respiratory Depth Respiratory Pattern Blood Pressure 199/94 H Blood Pressure Mean 129 Blood Pressure Source Monitor Blood Pressure Position Semi-Fowlers Blood Pressure Location Right Arm Pulse Ox 98 Oxygen Delivery Method Nasal Cannula Oxygen Flow Rate (L/min) 2 Weight Weight: 73 kg Body Mass Index (BMI) 24.5 EEG Results Procedure Details EEG Procedure Details: PEDRO PABLO SIERRA is a 74 year old M with a past medical history of , who presents for evaluation of Electroencephalogram on DATE at TIME Physical Exam Neuro Neuro Narrative: Asleep, arousable, poorly cooperative, globally aphasic Right facial droop Moves all extremities but poor effort at present (per RN he walked with walker this am and held his extremities antigravity) Lab / Micro Data 12/18/24 10:40 12/18/24 10:40 Labs: Laboratory Results - last 24 hr 12/17/24 16:00: WBC 8.5, RBC 4.45 L, Hgb 12.4 L, Hct 39.6 L, MCV 89.0, MCH 27.9, MCHC 31.3 L, RDW Std Deviation 45.6 H, RDW Coeff of Aly 14.0, Plt Count 417, MPV 10.0, Immature Gran % (Auto) 0.400, Neut % (Auto) 77.5 H, Lymph % (Auto) 12.1 L, Emmet % (Auto) 7.8, Eos % (Auto) 1.1, Baso % (Auto) 1.1 H, Absolute Neuts (auto) 6.6, Absolute Lymphs (auto) 1.03, Nucleated RBC % 0, PT 12.8, INR 0.9, APTT 24.2, Sodium 142, Potassium 3.6, Chloride 104, Carbon Dioxide 25.5, Anion Gap 13, BUN 31 H, Creatinine 1.18, Estim Creat Clear Calc 52.33, Est GFR (MDRD) Non-Af 64, BUN/Creatinine Ratio 26.4 H, Glucose 137 H, Hemoglobin A1c 5.9 H, Calcium 9.9, Troponin T High Sens 27 H, TSH 3.380 12/17/24 18:15: Troponin T Hi Sens 2 Hr 23 H 12/17/24 19:55: Troponin T Hi Sens 4Hr 23 H 12/18/24 10:40: WBC 10.4, RBC 4.62, Hgb 12.8 L, Hct 41.9, MCV 90.7, MCH 27.7, MCHC 30.5 L, RDW Std Deviation 45.7 H, RDW Coeff of Aly 13.7, Plt Count 386, MPV 9.9, Sodium 141, Potassium 4.2, Chloride 103, Carbon Dioxide 26.5, Anion Gap 12, BUN 22 H, Creatinine 1.06, Estim Creat Clear Calc 58.25, Est GFR (MDRD) Non-Af 73, BUN/Creatinine Ratio 20.6 H, Glucose 95, Calcium 9.7 Imaging Radiology Impression Brain CT 12/17/24 15:53 IMPRESSION: 1. Cerebral atrophy. 2. No evidence of acute intracranial pathology. 3. Other findings as noted. Findings were called to the [facility] emergency department on 12/17/2024 at 4:35 p.m. Reading Location: [id number] Head/Neck CTA 12/17/24 15:53 IMPRESSION: Right ICA stenosis of 75%. Left ICA stenosis of 50%. Additional atherosclerosis as above. Biapical pulmonary scarring and emphysema. Reading Location: [id number] Chest X-Ray 12/17/24 15:54 IMPRESSION: Hyperaerated lungs which can suggest COPD. Stable scarring. Reading Location: [id number] Active Medications Active Medications Active Medications: Current Medications Generic Name Dose Route Start Last Admin Trade Name Freq PRN Reason Stop Dose Admin Acetaminophen 650 mg 12/17/24 18:52 Acetaminophen 325 Mg Tablet PO Q6H PRN PRN Pain 1-10 Or Fever>100.7 Albuterol Sulfate 2.5 mg 12/17/24 19:04 Albuterol 2.5 Mg/3 Ml Vial.Neb. INHALATION Q4H PRN DYSPNEA/WHEEZING/SOB Albuterol/Ipratropium 3 ml 12/17/24 19:30 12/18/24 10:39 Ipratropium/Albuterol Sulfate 3 Ml Ampul.Neb INHALATION 3 ml Q4HWA.RT LEON Administration Aspirin 300 mg 12/18/24 11:00 Aspirin 300 Mg Suppository RC DAILY LEON Atorvastatin Calcium 40 mg 12/17/24 22:00 12/17/24 20:54 Atorvastatin Calcium 40 Mg Tablet PO Not Given QHS LEON Carbamazepine 200 mg 12/17/24 22:00 12/18/24 09:52 Carbamazepine 200 Mg Cpmp.12hr PO Not Given BID LEON Cholecalciferol 50 mcg 12/18/24 10:00 12/18/24 09:52 Cholecalciferol (Vit D3) 25 Mcg Tablet (1,000 Units) PO Not Given DAILY [facility] Clopidogrel Bisulfate 75 mg 12/18/24 10:00 12/18/24 09:52 Clopidogrel Bisulfate 75 Mg Tablet PO Not Given DAILY [facility] Finasteride 5 mg 12/18/24 10:00 12/18/24 09:52 Finasteride 5 Mg Tablet PO Not Given DAILY [facility] Gabapentin 100 mg 12/18/24 10:00 12/18/24 09:52 Gabapentin 100 Mg Capsule PO Not Given DAILY LEON Hydralazine HCl 5 mg 12/17/24 18:52 Hydralazine 20 Mg/Ml Vial IV 12/18/24 18:52 Q30M PRN maintain BP parameters with HR <60 Sodium Chloride 250 mls @ 15 mls/hr 12/17/24 19:51 IV .[id number] PRN Saline Flush Sodium Chloride 250 mls @ 15 mls/hr 12/17/24 19:51 IV .[id number] PRN Additional IVPB Infusion Levetiracetam 1,000 mg in 100 mls @ 400 mls/hr 12/17/24 22:00 12/18/24 11:00 IV Infused Q12 LEON Infusion Labetalol HCl 20 mg 12/17/24 15:53 Labetalol 20 Mg/4 Ml Vial IV 12/18/24 15:53 X1 PRN BLOOD PRESSURE Labetalol HCl 10 - 20 mg 12/17/24 18:52 Labetalol 20 Mg/4 Ml Vial IV 12/18/24 18:52 Q10M PRN PRN maintain BP parameters with HR >/=60 Melatonin 3 mg 12/17/24 18:52 Melatonin 3 Mg Tablet PO QHS PRN PRN INSOMNIA Mirtazapine 15 mg 12/17/24 22:00 12/17/24 20:54 Mirtazapine 15 Mg Tablet PO Not Given QHS LEON Ondansetron HCl 4 mg 12/17/24 18:52 Ondansetron 4 Mg/2 Ml Vial IV Q8H PRN PRN NAUSEA/VOMITING Pantoprazole Sodium 40 mg 12/18/24 10:00 12/18/24 09:52 Pantoprazole Sodium 40 Mg Tablet PO Not Given DAILY LEON Prednisone 40 mg 12/18/24 08:00 12/18/24 07:49 Prednisone 20 Mg Tablet PO Not Given BREAKFAST LEON Senna/Docusate Sodium 1 tablet 12/17/24 18:52 Senna/Docusate Sodium 1 Tablet PO BID PRN PRN Constipation Sertraline HCl 100 mg 12/18/24 10:00 12/18/24 09:52 Sertraline 100 Mg Tablet PO Not Given DAILY LEON Sodium Chloride 10 - 40 ml 12/17/24 19:51 12/18/24 10:33 0.9% Saline Lock 10 Ml Syringe IV 10 ml UD PRN Administration SALINE FLUSH Tamsulosin HCl 0.4 mg 12/18/24 22:00 Tamsulosin Hcl 0.4 Mg Capsule PO QHS [facility] NIHSS NIHSS Nursing Documentation NIHSS Nursing Documentation: NIHSS: Ischemic Stroke/TIA Start: 12/17/24 18:52 Text: For PCU Patients: NIH and Neuro Check every 4 Status: Active hours, PRN and with change in RN caregiver. Freq: [id number] Protocol: Activity Type Activity Date Activity User E-sign Co-sign Detail Recorded Client Recorded Date Recorded By Document 12/18/24 10:30 [id number] 12/18/24 10:48 12/18/24 10:30 NIH Stroke Scale [NIHSS] A score of 0 is normal or asymptomatic . Total possible score is 42. Inpatient: RN or Physician to activate a stroke alert for onset of new stroke symptoms or with NIHSS increase >/= 3 points. Following change in neurological status, NIHSS will be performed per physician order or more frequently PRN. -1a. Level of Consciousness 0 - Alert; keenly responsive -1b. LOC Questions 1 - Answers ONE question correctly -1c. LOC Commands 0 - Performs BOTH tasks correctly -2. Best Gaze 0 - Normal -3. Visual 0 - No visual loss -4. Facial Palsy 1 - Minor paralysis ( flattened nasolabial fold , asymmetry on smiling) -5a. Left Arm 0 - No drift; arm holds 90 ( or 45) degrees for full 10 seconds -5b. Right Arm 0 - No drift; arm holds 90 ( or 45) degrees for full 10 seconds -6a. Left Leg 0 - No drift; leg holds 30- degree position for full 5 seconds -6b. Right Leg 0 - No drift; leg holds 30- degree position for full 5 seconds -7. Limb Ataxia 2 - Present in 2 limbs -8. Sensory 1 - Mild-to- moderate sensory loss; -9. Best Language 3 - Mute, global aphasia; -10. Dysarthria 2 - Severe dysarthria; -11. Extinction and Inattention 0 - No abnormality -Total 10 Query Text:A score of 0 is normal or asymptomatic. Total possible score is 42 . ED: Notify Physician for NIHSS increase by > / = 3 points. Inpatient: RN or Physician to activate a stroke alert for NIHSS increase of > / = 3 points. Coma Scale [Assess] -Eye Opening Spontaneous -Motor Obeys Commands -Verbal Incomprehensibl e [Total] -Coma Scale Total 12 NIHSS 1a. Level of Consciousness: 0 - Alert; keenly responsive 1b. LOC Questions: 2 - Answers NEITHER question correctly 1c. LOC Commands: 2 - Performs NEITHER task correctly 2. Best Gaze: 0 - Normal 3. Visual: 0 - No visual loss 4. Facial Palsy: 2 - Partial paralysis (total or near-total paralysis of lower face) 5a. Left Arm: 1 - Drift; arm drifts downward but doesn?t hit the bed 5b. Right Arm: 1 - Drift; arm drifts downward but doesn?t hit the bed 6a. Left Le - Drift; leg falls by the end of 5-seconds, but does not hit bed 6b. Right Le - Drift; leg falls by the end of 5-seconds, but does not hit bed 7. Limb Ataxia: 0 - Absent 8. Sensory: 0 - Normal; no sensory loss 9. Best Language: 3 - Mute, global aphasia; 10. Dysarthria: 2 - Severe dysarthria; 11. Extinction and Inattention: 0 - No abnormality Total: 15
--- NOTE | 2024-12-18 14:45 | PCM.PN.HOSP ---
Reason for Visit Reason for Visit: Diagnoses Cerebral infarction, unspecified (12/17/24) Subjective Subjective Patient with fluctuating NIH is due to difficulty with assessment secondary to global aphasia. No acute issues through the night Objective Data Objective Data Vital Signs: Vital Signs Temp Pulse Resp BP Pulse Ox O2 Del Method O2 Flow Rate 97.8 F 67 16 209/85 H 95 Nasal Cannula 2 12/18/24 13:40 12/18/24 13:40 12/18/24 13:40 12/18/24 13:40 12/18/24 13:40 12/18/24 13:50 12/18/24 13:40 Oxygen Flow Rate (L/min) 2 Oxygen Delivery Method Nasal Cannula Weight: 73 kg Body Mass Index (BMI) 24.5 Intake & Output: Intake and Output for Last 24 Hours 12/16/24 12/17/24 12/18/24 23:59 23:59 23:59 Intake Total 1100 / 1100 100 / 100 Output Total 900 / 900 Balance 1100 / 1000 -800 / -800 Lab / Micro Data 12/18/24 10:40 12/18/24 10:40 Labs: Laboratory Results - last 24 hr 12/17/24 16:00: WBC 8.5, RBC 4.45 L, Hgb 12.4 L, Hct 39.6 L, MCV 89.0, MCH 27.9, MCHC 31.3 L, RDW Std Deviation 45.6 H, RDW Coeff of Aly 14.0, Plt Count 417, MPV 10.0, Immature Gran % (Auto) 0.400, Neut % (Auto) 77.5 H, Lymph % (Auto) 12.1 L, [place] % (Auto) 7.8, Eos % (Auto) 1.1, Baso % (Auto) 1.1 H, Absolute Neuts (auto) 6.6, Absolute Lymphs (auto) 1.03, Nucleated RBC % 0, PT 12.8, INR 0.9, APTT 24.2, Sodium 142, Potassium 3.6, Chloride 104, Carbon Dioxide 25.5, Anion Gap 13, BUN 31 H, Creatinine 1.18, Estim Creat Clear Calc 52.33, Est GFR (MDRD) Non-Af 64, BUN/Creatinine Ratio 26.4 H, Glucose 137 H, Hemoglobin A1c 5.9 H, Calcium 9.9, Troponin T High Sens 27 H, TSH 3.380 12/17/24 18:15: Troponin T Hi Sens 2 Hr 23 H 12/17/24 19:55: Troponin T Hi Sens 4Hr 23 H 12/18/24 10:40: WBC 10.4, RBC 4.62, Hgb 12.8 L, Hct 41.9, MCV 90.7, MCH 27.7, MCHC 30.5 L, RDW Std Deviation 45.7 H, RDW Coeff of Aly 13.7, Plt Count 386, MPV 9.9, Sodium 141, Potassium 4.2, Chloride 103, Carbon Dioxide 26.5, Anion Gap 12, BUN 22 H, Creatinine 1.06, Estim Creat Clear Calc 58.25, Est GFR (MDRD) Non-Af 73, BUN/Creatinine Ratio 20.6 H, Glucose 95, Calcium 9.7 Radiography Diagnostic Testing: Radiology Impression Brain CT 12/17/24 15:53 IMPRESSION: 1. Cerebral atrophy. 2. No evidence of acute intracranial pathology. 3. Other findings as noted. Findings were called to the [facility] emergency department on 12/17/2024 at 4:35 p.m. Reading Location: [id number] Head/Neck CTA 12/17/24 15:53 IMPRESSION: Right ICA stenosis of 75%. Left ICA stenosis of 50%. Additional atherosclerosis as above. Biapical pulmonary scarring and emphysema. Reading Location: [id number] Chest X-Ray 12/17/24 15:54 IMPRESSION: Hyperaerated lungs which can suggest COPD. Stable scarring. Reading Location: [id number] Echocardiogram 12/18/24 07:27 Interpretation Summary Technically difficult study With limited views. Overall LV systolic function within normal. The estimated ejection fraction is 55???60 %. Previous study in 2023 as well showed technically difficult study with overall normal LV systolic function. Ordering Physician: Lisha Talamantes Referring Physician: Daija Douglas Performed By: Susie Sands, RDREY, RVT Physical Exam Const alert, no apparent distress and average body habitus; Negative for healthy appearing Constitutional Narrative: Older, white male, appears older than stated age, lying in bed, getting blood drawn, nursing at bedside, patient somewhat agitated, unable to consistently follow commands but moves all extremities without difficulty General Appearance: uncooperative Orientation / Consciousness: confused HEENT head/scalp atraumatic, moist oral mucous membranes and oropharynx normal Head and Scalp: normocephalic Resp normal respiratory effort, no retractions and no use of accessory muscles Resp Narrative: Scattered inspiratory and expiratory wheezes Auscultation: wheezes; Negative for crackles or rhonchi Cardio regular rate, regular rhythm, S1 normal heart sound, S2 normal heart sound, no murmurs, no rub, no gallops and no clicks GI normal to inspection, nondistended, normoactive bowel sounds, soft to palpation and non-tender Extremity no clubbing, cyanosis or edema Extremity Narrative: Pedal radial pulses are 2+ Neuro moves all extremities Neuro Narrative: Patient with obvious global aphasia, seems to move all extremities symmetrically, left facial droop, right pupil is chronically abnormal Sensorium / Orientation: awake and alert Speech: Negative for speech normal Psych Psych Narrative: Agitated Assessment & Plan Assessment/Plan (1) Acute CVA (cerebrovascular accident): (2) Facial droop: (3) Aphasia: PLAN: Plan Acute left MCA stroke - Likely cardioembolic as patient has history of atrial fibrillation and not able to be anticoagulated due to recurrent falls - Patient with recent lipid panel at the end of October which showed total cholesterol 140/LDL of 63/HDL 64 - Continue aspirin but transition to rectal - Continue atorvastatin 40 mg daily as p.o. intake allows - Continue Plavix 75 mg daily as p.o. intake allows - A1c was performed and found to be 5.9 - Resolving deficits include global aphasia, right facial droop and poorly cooperative due to aphasia - Will allow for permissive hypertension currently with gradual normalization - Continue speech therapy--> highly concerned patient may need PEG tube -Will make patient strict n.p.o. - PT/OT to evaluate - Neurology consultation noted-appreciate input and assistance History of paroxysmal atrial fibrillation - Okay to hold beta-joel - Patient has not been on anticoagulation candidate thus far as cardioembolic stroke due to ongoing issues with his balance and recurrent falls COPD with recent hospitalization for exacerbation - Will continue prednisone but transition to Solu-Medrol 40 daily with slow taper - Continue aerosols as ordered Chronic normocytic anemia - Counts remain stable - Monitor CKD stage II - Creatinine stable - Follow Generalized weakness/debility/failure to thrive -Patient with ongoing chronic issues with debility and weakness as well as failure to thrive - Was recently just discharged home with home health care - Given acute infarct will need placement at the time of discharge Osteoporosis -Restart alendronate at discharge -Hold home cholecalciferol Seizure disorder -Hold home carbamazepine - Start Keppra 1000 mg IV twice daily CAD/essential hypertension/hyperlipidemia/history of stroke/PAD -Blood pressure is markedly elevated on presentation however it does not appear patient been compliant with his medications - Continue home nifedipine 90 mg daily - Continue home metoprolol 25 mg p.o. daily - Continue home losartan 100 mg daily - Continue home clonidine 0.1 mg p.o. twice daily - Continue as needed hydralazine BPH with obstruction -Hold home Flomax -Hold home finasteride GERD -Continue PPI transition IV Tobacco abuse -continue nicotine patch -Recommend cessation Depression -Hold home sertraline DVT prophylaxis -Subcu Lovenox daily CODE STATUS - Full code Charges/Coding Visit Charges Inpatient E&M: 86616 Subs Hosp L2 NIHSS NIHSS Nursing Documentation NIHSS Nursing Documentation: NIHSS: Ischemic Stroke/TIA Start: 12/17/24 18:52 Text: For PCU Patients: NIH and Neuro Check every 4 Status: Active hours, PRN and with change in RN caregiver. Freq: [id number] Protocol: Activity Type Activity Date Activity User E-sign Co-sign Detail Recorded Client Recorded Date Recorded By Document 12/18/24 13:40 [id number] 12/18/24 13:43 12/18/24 13:40 NIH Stroke Scale [NIHSS] A score of 0 is normal or asymptomatic . Total possible score is 42. Inpatient: RN or Physician to activate a stroke alert for onset of new stroke symptoms or with NIHSS increase >/= 3 points. Following change in neurological status, NIHSS will be performed per physician order or more frequently PRN. -1a. Level of Consciousness 0 - Alert; keenly responsive -1b. LOC Questions 1 - Answers ONE question correctly -1c. LOC Commands 0 - Performs BOTH tasks correctly -2. Best Gaze 0 - Normal -3. Visual 0 - No visual loss -4. Facial Palsy 1 - Minor paralysis ( flattened nasolabial fold , asymmetry on smiling) -5a. Left Arm 0 - No drift; arm holds 90 ( or 45) degrees for full 10 seconds -5b. Right Arm 1 - Drift; arm drifts downward but doesn?t hit the bed -6a. Left Leg 0 - No drift; leg holds 30- degree position for full 5 seconds -6b. Right Leg 1 - Drift; leg falls by the end of 5- seconds, but does not hit bed -7. Limb Ataxia 2 - Present in 2 limbs -8. Sensory 0 - Normal; no sensory loss -9. Best Language 3 - Mute, global aphasia; -10. Dysarthria 2 - Severe dysarthria; -11. Extinction and Inattention 0 - No abnormality -Total 11 Query Text:A score of 0 is normal or asymptomatic. Total possible score is 42 . ED: Notify Physician for NIHSS increase by > / = 3 points. Inpatient: RN or Physician to activate a stroke alert for NIHSS increase of > / = 3 points. Coma Scale [Assess] -Eye Opening Spontaneous -Motor Obeys Commands -Verbal Incomprehensibl e [Total] -Coma Scale Total 12
[2024-12-18] MEDS: Lactated Ringers 1,000 ML 75 ML IV (16:45)
--- NOTE | 2024-12-18 17:30 | CASEMGMT ---
Social Work Spoke with provider today who reports patient is being treated for an acute stroke and it appears patient will need placement for rehab at time of discharge. Chart reviewed and noted POA for healthcare on file. Patient's ex- Eloina Bhakta ([phone]) is primary power of deputy attorney general and patient's daughter Michelle Montana ([phone]) is the alternate. Met with patient in room, introducing to self and social work role. Patient with extreme difficulty in formulating words. The word yeah was the only tangible word easily communicated by the patient. Patient spent much time attempting to say the word why and was finally able to communicate this word once during social work visit. Patient was able to shake head yes and no. Patient shook head yes in regards to why patient was having difficulty communicating. Patient was able to verbally express in the affirmative that we will need to go somewhere after the hospital for further care. Patient shook head yes that it is okay to speak with his daughter Michelle or ex- Eloina. Emotional support offered to the patient. Unable to complete PHQ-9 depression screen as per protocol when somebody has an acute stroke. Attempted questions gently and patient had difficulty with answering the questions. Even gave patient a paper copy of the screen and patient really could not focus on even reading the depression screen. Called Eloina and voicemail was full. Called daughter Michelle who answered immediately. Discussed recommendation for some type of rehab. Michelle reports patient just got out of [facility] about a week and a half ago, went home for a few days and then was admitted to the hospital, back home, and now back to the hospital again. Michelle asked if patient could be approved for some type of rehab at [facility]. Educated that the transitional care unit does not take patient's insurance. Michelle asked about the rehab unit as Michelle used to work on this unit. Agreed that able to make a referral though this is not a guarantee of acceptance. Asked Michelle if would like an additional list of rehab units. Michelle expressed that would want patient local, expressing interest in the [facility] and [facility]. Verbally reviewed custodial facility choice list which includes quality and resource data for patient's geographical region and insurance network. Both facilities Michelle mentioned are on the patient's list. Referral to Larisa at the [facility] rehab unit. Next choices would be [facility] for referrals to be sent to both facilities and see what the outcome of this referrals are. Plan: Acute rehab unit versus custodial facility. Referral pending with [facility] rehab. -EVELIN Mcwilliams, CRYSTAL GRINDER *This note was generated with Sparkroom dictation software. It may contain incorrect words, spelling, and punctuation that were not noted in review of the chart prior to signing*
--- NOTE | 2024-12-18 17:46 | MRI_ITS ---
EXAM: BRAIN WITHOUT CONTRAST CLINICAL HISTORY: EVAL FOR CVA COMPARISON: December 17, 2024 CT. TECHNIQUE: Multiplanar, multisequence MR images of the brain were obtained without gadolinium contrast material. FINDINGS: There is focal restricted diffusion in the left periventricular deep white matter with multiple foci with the largest measuring 1.2 by 0.9 cm with associated increased T2 signal, intermediate to decreased T1 signal, consistent with subacute infarct, image 17/26. There are punctate foci of restricted diffusion in the left precentral subcortical region which show associated increased T2, decreased T1 signal, consistent with subacute infarct, image 21/26. There is extensive abnormal increased T2 and FLAIR signal throughout the deep white matter, confluence in the periventricular regions, consistent with chronic ischemic change. There is a 3.1 x 1.5 cm arachnoid cyst at the medial left temporal tip. No intracranial hemorrhage, mass, mass effect, midline shift or pathologic extra- axial fluid collection. No hydrocephalus. No cerebellar tonsillar ectopia. No sellar/suprasellar signal abnormalities. The ocular globes and intraorbital soft tissues are symmetrically unremarkable. There is mucosal thickening in the right maxillary sinus. MRI/Brain without Contrast IMPRESSION: There is focal restricted diffusion in the left periventricular deep white olivia er with multiple foci with the largest measuring 1.2 by 0.9 cm with associated increased T2 signal, intermediate to decreased T1 signal, consistent with subacute infarct, image 17/26. There are punctate foci of restricted diffusion in the left precentral subcorti smiley region which show associated increased T2, decreased T1 signal, consistent with subacute infarct, image 21/26. There is extensive abnormal increased T2 and FLAIR signal throughout the deep w grace matter, confluence in the periventricular regions, consistent with chronic ischemic change. There is a 3.1 x 1.5 cm arachnoid cyst at the medial left temporal tip. There is mucosal thickening in the right maxillary sinus. Reading Location: [facility]
[2024-12-19] VITALS (18 sets, daily range): BP systolic 174–220; BP diastolic 71–106; PULSE 68–83; RESP 17–24; TEMP 36.1–36.6; O2SAT 93–98; BMI 24.5
[2024-12-19 05:46] LABS: Hematocrit 39.1 % (40-54); Hemoglobin 11.9 g/dL (13.0-16.5); Immature Granulocytes Count 0.030 X10^3/uL (0.0-0.0); Mean Corp Hgb Conc 30.4 g/dL (32-36); Mean Corpuscular Volume 90.5 fL (80-94); Mean Platelet Vol. 9.6 fl (6.2-12.0); NRBC Flagged by Analyzer 0 % (0-5); Platelet Count 375 K/mm3 (150-450); RBC Distribution Width CV 13.6 % (11.6-14.6); RBC Distribution Width SD 44.8 fl (35.1-43.9); Red Blood Count 4.32 M/mm3 (4.6-6.2); White Blood Count 7.4 K/mm3 (4.4-11.0)
[2024-12-19] MEDS: Lactated Ringers 1,000 ML 75 ML IV ×2 (05:57→19:16)
[2024-12-19 06:33] LABS: AST(SGOT) 23 U/L (<=37); Alanine Aminotransfer ALT/SGPT 25 U/L (<=46); Albumin, Serum 4.3 g/dL (3.4-4.8); Alkaline Phosphatase 69 U/L (40-129); Anion Gap 12 (5-15); BUN 19 mg/dL (4-19); BUN/Creat Ratio 17.6 RATIO (10-20); Calcium,Total 9.5 mg/dL (7.6-11.0); Carbon Dioxide 27.6 mmol/L (21.0-32.0); Chloride 101 mmol/L (98-108); Estimated Creatinine Clearance 58.25 ml/min (50-250); Globulin 2.8 g/dL (2.2-4.2); Glucose 109 mg/dL (70-99); Potassium 3.6 mmol/L (3.3-5.1)
--- NOTE | 2024-12-19 07:15 | NURSING ---
NIH handoff completed with [employer] [facility] [place]. See documentation.
--- NOTE | 2024-12-19 08:10 | PN.HOSP_ITS ---
Reason for Visit Reason for Visit: Difficulty speaking and left facial droop Subjective Subjective No specific issues overnight. Will start to bring down blood pressure slowly. Patient still with marked speech and swallowing issues. Objective Data Objective Data Vital Signs: Vital Signs Temp Pulse Resp BP Pulse Ox O2 Del Method O2 Flow Rate 97.6 F L 68 16 183/81 H 96 Room Air 2 12/19/24 07:15 12/19/24 07:15 12/19/24 07:15 12/19/24 07:15 12/19/24 07:15 12/19/24 07:15 12/19/24 06:00 Oxygen Flow Rate (L/min) 2 Oxygen Delivery Method Room Air Weight: 73 kg Body Mass Index (BMI) 24.5 Intake & Output: Intake and Output for Last 24 Hours 12/17/24 12/18/24 12/19/24 23:59 23:59 23:59 Intake Total 1100 / 1100 200 / 200 990 / 990 Output Total 1500 / 1500 350 / 350 Balance 1100 / 1000 -1300 / -1300 640 / 640 Lab / Micro Data 12/19/24 05:32 12/19/24 05:32 Labs: Laboratory Results - last 24 hr 12/18/24 10:40: WBC 10.4, RBC 4.62, Hgb 12.8 L, Hct 41.9, MCV 90.7, MCH 27.7, M CHC 30.5 L, RDW Std Deviation 45.7 H, RDW Coeff of Aly 13.7, Plt Count 386, MPV 9.9, Sodium 141, Potassium 4.2, Chloride 103, Carbon Dioxide 26.5, Anion Gap 12, BUN 22 H, Creatinine 1.06, Estim Creat Clear Calc 58.25, Est GFR (MDRD) Non-Af 73, BUN/Creatinine Ratio 20.6 H, Glucose 95, Calcium 9.7 12/19/24 05:32: WBC 7.4, RBC 4.32 L, Hgb 11.9 L, Hct 39.1 L, MCV 90.5, MCH 27.5, MCHC 30.4 L, RDW Std Deviation 44.8 H, RDW Coeff of Aly 13.6, Plt Count 375, MPV 9.6, Immature Gran % (Auto) 0.400, Neut % (Auto) 81.3 H, Lymph % (Auto) 9.0 L, [place] % (Auto) 6.6, Eos % (Auto) 1.9, Baso % (Auto) 0.8, Absolute Neuts (auto) 6.0, Absolute Lymphs (auto) 0.67 L, Nucleated RBC % 0, Sodium 141, Potassium 3.6, Chloride 101, Carbon Dioxide 27.6, Anion Gap 12, BUN 19, Creatinine 1.06, Estim Creat Clear Calc 58.25, Est GFR (MDRD) Non-Af 73, BUN/Creatinine Ratio 17.6, Glucose 109 H, Calcium 9.5, Total Bilirubin 0.24, AST 23, ALT 25, Alkaline Phosphatase 69, Total Protein 7.1, Albumin 4.3, Globulin 2.8, Albumin/Globulin Ratio 1.5 Radiography Diagnostic Testing: Radiology Impression Echocardiogram 12/18/24 07:27 Interpretation Summary Technically difficult study With limited views. Overall LV systolic function within normal. The estimated ejection fraction is 55???60 %. Previous study in 2023 as well showed technically difficult study with overall normal LV systolic function. Ordering Physician: Lisha Talamantes Referring Physician: Daija Douglas Performed By: Susie Sands, MARTHACS, RVT Brain MRI 12/18/24 17:46 IMPRESSION: There is focal restricted diffusion in the left periventricular deep white matter with multiple foci with the largest measuring 1.2 by 0.9 cm with associated increased T2 signal, intermediate to decreased T1 signal, consistent with subacute infarct, image 17/. There are punctate foci of restricted diffusion in the left precentral subcortical region which show associated increased T2, decreased T1 signal, consistent with subacute infarct, image 21/. There is extensive abnormal increased T2 and FLAIR signal throughout the deep white matter, confluence in the periventricular regions, consistent with chronic ischemic change. There is a 3.1 x 1.5 cm arachnoid cyst at the medial left temporal tip. There is mucosal thickening in the right maxillary sinus. Reading Location: [facility] Physical Exam Const alert, no apparent distress and average body habitus; Negative for healthy appearing Constitutional Narrative: Older, white male, appears older than stated age, sitting up in a chair, appears comfortable, nontoxic Orientation / Consciousness: confused HEENT normocephalic, head/scalp atraumatic and moist oral mucous membranes HEENT Narrative: Dentition is poor, Mallampati 2, no thrush Resp normal respiratory effort, no retractions and no use of accessory muscles Resp Narrative: Markedly diminished but clear Auscultation: wheezes; Negative for crackles or rhonchi Cardio regular rate, S1 normal heart sound, S2 normal heart sound, no murmurs, no rub, no gallops, no clicks and peripheral pulses 2+ throughout Cardio Narrative: Irregularly irregular with GI normal to inspection, nondistended, normoactive bowel sounds, soft to palpation and non-tender Extremity no clubbing, cyanosis or edema Extremity Narrative: Pedal radial pulses are 2+ Neuro moves all extremities Neuro Narrative: Patient with obvious global aphasia, seems to move all extremities symmetrically, left facial droop, right pupil is chronically abnormal Sensorium / Orientation: awake and alert Speech: Negative for speech normal Psych Psych Narrative: Call today Assessment & Plan Assessment/Plan (1) Acute CVA (cerebrovascular accident): (2) Facial droop: (3) Aphasia: PLAN: Plan Acute left MCA stroke - Likely cardioembolic as patient has history of atrial fibrillation and not able to be anticoagulated due to recurrent falls - Patient with recent lipid panel at the end of October which showed total cholesterol 140/LDL of 63/HDL 64 - Continue aspirin but transition to rectal - Continue atorvastatin 40 mg daily as p.o. intake allows - Continue Plavix 75 mg daily as p.o. intake allows - A1c was performed and found to be 5.9 - Ongoing deficits include global aphasia, right facial droop and poorly cooperative due to aphasia - So allow for permissive hypertension with goal blood pressure being about 160- 180 for the next 48 hours will start labetalol IV every 6 hours scheduled - Continue speech therapy--> highly concerned patient may need PEG tube -Will make patient strict n.p.o. - PT/OT are following thus far patient is doing quite poorly - Neurology consultation noted-appreciate input and assistance Dysphagia - No significant clinical improvement since yesterday -Continue speech therapy - Remains n.p.o. - Continue IV fluids - Consult GI for PEG placement History of paroxysmal atrial fibrillation - Start IV labetalol - Patient has not been on anticoagulation candidate thus far as cardioembolic stroke due to ongoing issues with his balance and recurrent falls COPD with recent hospitalization for exacerbation - Will continue prednisone but transition to Solu-Medrol 40 daily with slow taper - Continue aerosols as ordered Chronic normocytic anemia - Counts remain stable - Monitor CKD stage II - Creatinine stable - Follow Generalized weakness/debility/failure to thrive -Patient with ongoing chronic issues with debility and weakness as well as failure to thrive - Was recently just discharged home with home health care - Given acute infarct will need placement at the time of discharge Osteoporosis -Restart alendronate at discharge -Hold home cholecalciferol Seizure disorder - Hold home carbamazepine - Continue Keppra 1000 mg IV twice daily CAD/essential hypertension/hyperlipidemia/history of stroke/PAD -Blood pressure is markedly elevated on presentation however it does not appear patient been compliant with his medications - Continue home nifedipine 90 mg daily - Continue home metoprolol 25 mg p.o. daily - Continue home losartan 100 mg daily - Continue home clonidine 0.1 mg p.o. twice daily - Continue as needed hydralazine BPH with obstruction -Hold home Flomax -Hold home finasteride GERD -Continue PPI transition IV Tobacco abuse -continue nicotine patch -Recommend cessation Depression -Hold home sertraline DVT prophylaxis -Subcu Lovenox daily CODE STATUS - Full code Charges/Coding Visit Charges Inpatient E&M: 43709 Subs Hosp L2 NIHSS NIHSS Nursing Documentation NIHSS Nursing Documentation: NIHSS: Ischemic Stroke/TIA Start: 12/17/24 18:52 Text: For PCU Patients: NIH and Neuro Check every 4 Status: Active hours, PRN and with change in RN caregiver. Freq: [id number] Protocol: Activity Type Activity Date Activity User E-sign Co-sign Detail Recorded Client Recorded Date Recorded By Document 12/19/24 07:15 [id number] 12/19/24 07:43 12/19/24 07:15 NIH Stroke Scale [NIHSS] A score of 0 is normal or asymptomatic . Total possible score is 42. Inpatient: RN or Physician to activate a stroke alert for onset of new stroke symptoms or with NIHSS increase >/= 3 points. Following change in neurological status, NIHSS will be performed per physician order or more frequently PRN. -1a. Level of Consciousness 0 - Alert; keenly responsive -1b. LOC Questions 2 - Answers NEITHER question correctly -1c. LOC Commands 0 - Performs BOTH tasks correctly -2. Best Gaze 0 - Normal -3. Visual 0 - No visual loss -4. Facial Palsy 1 - Minor paralysis ( flattened nasolabial fold , asymmetry on smiling) -5a. Left Arm 0 - No drift; arm holds 90 ( or 45) degrees for full 10 seconds -5b. Right Arm 0 - No drift; arm holds 90 ( or 45) degrees for full 10 seconds -6a. Left Leg 0 - No drift; leg holds 30- degree position for full 5 seconds -6b. Right Leg 0 - No drift; leg holds 30- degree position for full 5 seconds -7. Limb Ataxia 2 - Present in 2 limbs -8. Sensory 1 - Mild-to- moderate sensory loss; -9. Best Language 3 - Mute, global aphasia; -10. Dysarthria 2 - Severe dysarthria; -11. Extinction and Inattention 0 - No abnormality -Total 11 Query Text:A score of 0 is normal or asymptomatic. Total possible score is 42 . ED: Notify Physician for NIHSS increase by > / = 3 points. Inpatient: RN or Physician to activate a stroke alert for NIHSS increase of > / = 3 points. Coma Scale [Assess] -Eye Opening Spontaneous -Motor Obeys Commands -Verbal Inappropriate [Total] -Coma Scale Total 13
[2024-12-19] MEDS: 0.9% Saline Lock 10 ML Syringe IV ×2 (10:56→23:51)
[2024-12-19] MEDS: Pantoprazole Sodium 40 MG in 0.9% Normal Saline (100mL MB+) 100 ML 300 MG IV (10:57)
[2024-12-19] MEDS: levETIRAcetam IV 1,000 MG/100 ML BAG 400 MG IV ×2 (10:57→22:00)
--- NOTE | 2024-12-19 11:24 | CASEMGMT ---
Addendum entered by Jacquie Michaud 12/19/24 12:56: [facility] is foc. [facility] asked to cancel referral. Jacquie Michaud DC Planning Asst. Original Note: Discharge Planning Referral sent to [facility] and [facility]. [facility] has accepted. SW updated. Jacquie Michaud DC Planning Asst.
--- NOTE | 2024-12-19 11:24 | CASEMGMT ---
Social Work Pt still would not be able to complete PHQ-9 due to aphasia. Pt was denied rehab, yamileth Dhillon/quynh manager transportation planning sent referrals to [facility] and [facility]. SW will continue to follow. EVELIN Garcia
--- NOTE | 2024-12-19 12:06 | CASEMGMT ---
Social Work SW received a call from Gini at [facility] inquiring about d/c plan. SW explained that the plan is for pt to go to SNF, referrals are out but we do not have a definite accepting facility yet. EVELIN Garcia
--- NOTE | 2024-12-19 12:18 | CASEMGMT ---
Social Work [facility] has accepted pt, we have not heard back from [facility]. SW called pt's , Giovana, to review discharge plan. SW explained yesterday the SW had tried to reach her and was unable, so called pt's daughter Michelle. Michelle had said to send referrals to [facility] and [facility]. SW let her know [facility] accepted pt. Initially, Giovana said she wanted to take pt home. SW explained to Giovana that pt cannot care for himself at present, having difficulty speaking and and needing assist to walk. is agreeable at this time for pt to go to [facility]. SW explained that we will try for precert, will let her know what insurance says. SW will continue to follow. EVELIN Garcia
--- NOTE | 2024-12-19 16:36 | CASEMGMT ---
Social Work SW let pt's exwife/BARBARA Akhtar, let her know that pt will need to be here through the weekend while we figure out a nutrition plan. Giovana states understanding. SW will continue to follow. EVELIN Garcia
[2024-12-20] VITALS (14 sets, daily range): BP systolic 105–184; BP diastolic 68–103; PULSE 60–94; RESP 18–26; TEMP 36.2–36.6; O2SAT 92–97; BMI 24.5
[2024-12-20 04:32] LABS: Hematocrit 35.7 % (40-54); Hemoglobin 10.9 g/dL (13.0-16.5); Immature Granulocytes Count 0.030 X10^3/uL (0.0-0.0); Mean Corp Hgb Conc 30.5 g/dL (32-36); Mean Corpuscular Volume 89.5 fL (80-94); Mean Platelet Vol. 10.0 fl (6.2-12.0); NRBC Flagged by Analyzer 0 % (0-5); Platelet Count 355 K/mm3 (150-450); RBC Distribution Width CV 13.7 % (11.6-14.6); RBC Distribution Width SD 44.4 fl (35.1-43.9); Red Blood Count 3.99 M/mm3 (4.6-6.2); White Blood Count 6.9 K/mm3 (4.4-11.0)
[2024-12-20] MEDS: 0.9% Saline Lock 10 ML Syringe IV ×3 (06:01→23:22)
--- NOTE | 2024-12-20 07:17 | PCM.PN.HOSP ---
Reason for Visit Reason for Visit: Difficulty speaking/left facial droop Subjective Subjective No issues overnight. Patient still appears to be having difficulty protecting airway. Speech is still markedly impacted. Declining therapy at times. Objective Data Objective Data Vital Signs: Vital Signs Temp Pulse Resp BP Pulse Ox O2 Del Method O2 Flow Rate 97.2 F L 67 18 153/68 H 93 Nasal Cannula 2 12/20/24 05:53 12/20/24 07:16 12/20/24 07:16 12/20/24 05:53 12/20/24 07:16 12/20/24 07:16 12/20/24 07:16 Oxygen Flow Rate (L/min) 2 Oxygen Delivery Method Nasal Cannula Weight: 73 kg Body Mass Index (BMI) 24.5 Intake & Output: Intake and Output for Last 24 Hours 12/18/24 12/19/24 12/20/24 23:59 23:59 23:59 Intake Total 200 / 200 2288.75 / 2288.75 Output Total 1500 / 1500 790 / 790 Balance -1300 / -1300 1498.75 / 1498.75 Lab / Micro Data 12/20/24 03:56 12/19/24 05:32 Labs: Laboratory Results - last 24 hr 12/20/24 03:56: WBC 6.9, RBC 3.99 L, Hgb 10.9 L, Hct 35.7 L, MCV 89.5, MCH 27.3, MCHC 30.5 L, RDW Std Deviation 44.4 H, RDW Coeff of Aly 13.7, Plt Count 355, MPV 10.0, Immature Gran % (Auto) 0.400, Neut % (Auto) 79.1 H, Lymph % (Auto) 9.9 L, [place] % (Auto) 8.5, Eos % (Auto) 1.2, Baso % (Auto) 0.9, Absolute Neuts (auto) 5.5, Absolute Lymphs (auto) 0.69 L, Nucleated RBC % 0 Micro: Microbiology 12/19/24 10:00 Stool Enteric Bacteriology - Final 12/18/24 13:51 Stool Clostridioides difficile (PCR) - Final Radiography Diagnostic Testing: Radiology Impression Brain MRI 12/18/24 17:46 IMPRESSION: There is focal restricted diffusion in the left periventricular deep white matter with multiple foci with the largest measuring 1.2 by 0.9 cm with associated increased T2 signal, intermediate to decreased T1 signal, consistent with subacute infarct, image 17/26. There are punctate foci of restricted diffusion in the left precentral subcortical region which show associated increased T2, decreased T1 signal, consistent with subacute infarct, image 21/26. There is extensive abnormal increased T2 and FLAIR signal throughout the deep white matter, confluence in the periventricular regions, consistent with chronic ischemic change. There is a 3.1 x 1.5 cm arachnoid cyst at the medial left temporal tip. There is mucosal thickening in the right maxillary sinus. Reading Location: [facility] Physical Exam Const alert, no apparent distress and average body habitus; Negative for healthy appearing Constitutional Narrative: Older, white male, appears older than stated age, sitting up in bed, watching television, seems somewhat agitated, nursing at bedside, speech therapy arrives, cooperates intermittently HEENT normocephalic, head/scalp atraumatic and moist oral mucous membranes HEENT Narrative: Significant deviation of the tongue to the right Resp normal respiratory effort, no retractions, no use of accessory muscles and clear to auscultation bilaterally Resp Narrative: Markedly diminished but clear Auscultation: Negative for crackles, rhonchi or wheezes Cardio regular rate, S1 normal heart sound, S2 normal heart sound, no murmurs, no rub, no gallops, no clicks and peripheral pulses 2+ throughout Cardio Narrative: Irregularly irregular GI normal to inspection, nondistended, normoactive bowel sounds, soft to palpation and non-tender Extremity no clubbing, cyanosis or edema Extremity Narrative: Pedal radial pulses are 2+ Neuro moves all extremities Neuro Narrative: Patient with obvious global aphasia, seems to move all extremities symmetrically, left facial droop, right pupil is chronically abnormal, tongue deviates to the right Sensorium / Orientation: awake and alert Speech: Negative for speech normal Psych Psych Narrative: Mildly agitated today and somewhat disinterested, affect is flat Assessment & Plan Assessment/Plan (1) Acute CVA (cerebrovascular accident): (2) Facial droop: (3) Aphasia: PLAN: Plan Acute left MCA stroke - Ongoing deficits include global aphasia, right facial droop and poorly cooperative due to aphasia - Likely cardioembolic as patient has history of atrial fibrillation and not able to be anticoagulated due to recurrent falls -Per discussion with neurology will start Eliquis 5 mg p.o. twice daily after PEG placement as patient is to be institutionalized after discharge for rehab which should decrease his fall risk and overall his stroke risk is higher than his bleed risk at this time - Patient with recent lipid panel at the end of October which showed total cholesterol 140/LDL of 63/HDL 64 - Continue aspirin - Continue atorvastatin 40 mg daily as p.o. intake allows - Okay to discontinue Plavix per neurology -Check EEG -Check B12 level -Thiamine 500 mg every 8 hours x 24 hours then 250 mg daily x 2 days then 100 mg daily -Goal blood pressure is about 140-160 today and ideally right around 160 -Will increase labetalol to 20 every 6 hours scheduled - PT/OT are following thus far patient is doing quite poorly - Neurology consultation noted-appreciate input and assistance Dysphagia - No significant clinical improvement since yesterday - Continue speech therapy - Remains n.p.o. - Continue IV fluids - Consult GI for PEG placement--> discussed with Dr. Henderson and plan is for PEG placement on Monday History of paroxysmal atrial fibrillation - Continue IV labetalol - With current debilities stroke risk is higher than bleed risk so we will go ahead and start Eliquis 5 mg daily after PEG placement COPD with recent hospitalization for exacerbation -Will continue Solu-Medrol 40 mg for another 2 days then wean to 30 mg and decrease dose by 10 mg every 4 days - Continue aerosols as ordered Chronic normocytic anemia - Counts remain stable - Monitor CKD stage II - Creatinine stable - Follow Generalized weakness/debility/failure to thrive - Patient with ongoing chronic issues with debility and weakness as well as failure to thrive on top of acute stroke - Was recently just discharged home with home health care - Given acute infarct will need placement at the time of discharge Osteoporosis -Restart alendronate at discharge -Hold home cholecalciferol Seizure disorder - Hold home carbamazepine - Continue Keppra 1000 mg IV twice daily and transition back to carbamazepine once we could start enteral feeds CAD/essential hypertension/hyperlipidemia/history of stroke/PAD -Blood pressure is markedly elevated on presentation however it does not appear patient been compliant with his medications -Hold home nifedipine 90 mg daily -Hold home metoprolol 25 mg p.o. daily -Hold home losartan 100 mg daily -Hold home clonidine 0.1 mg p.o. twice daily -Continue as needed IV medication for stroke protocol BPH with obstruction -Hold home Flomax -Hold home finasteride GERD -Continue PPI transition IV Tobacco abuse -continue nicotine patch -Recommend cessation Depression -Hold home sertraline DVT prophylaxis -Subcu Lovenox daily CODE STATUS - Full code Charges/Coding Visit Charges Inpatient E&M: 23845 Subs Hosp L2 NIHSS NIHSS Nursing Documentation NIHSS Nursing Documentation: NIHSS: Ischemic Stroke/TIA Start: 12/17/24 18:52 Text: For PCU Patients: NIH and Neuro Check every 4 Status: Active hours, PRN and with change in RN caregiver. Freq: [id number] Protocol: Activity Type Activity Date Activity User E-sign Co-sign Detail Recorded Client Recorded Date Recorded By Document 12/20/24 05:53 MB [id number] 12/20/24 05:55 MB 12/20/24 05:53 NIH Stroke Scale [NIHSS] A score of 0 is normal or asymptomatic . Total possible score is 42. Inpatient: RN or Physician to activate a stroke alert for onset of new stroke symptoms or with NIHSS increase >/= 3 points. Following change in neurological status, NIHSS will be performed per physician order or more frequently PRN. -1a. Level of Consciousness 0 - Alert; keenly responsive -1b. LOC Questions 2 - Answers NEITHER question correctly -1c. LOC Commands 0 - Performs BOTH tasks correctly -2. Best Gaze 1 - Partial gaze palsy; -3. Visual 0 - No visual loss -4. Facial Palsy 1 - Minor paralysis ( flattened nasolabial fold , asymmetry on smiling) -5a. Left Arm 0 - No drift; arm holds 90 ( or 45) degrees for full 10 seconds -5b. Right Arm 0 - No drift; arm holds 90 ( or 45) degrees for full 10 seconds -6a. Left Leg 0 - No drift; leg holds 30- degree position for full 5 seconds -6b. Right Leg 0 - No drift; leg holds 30- degree position for full 5 seconds -7. Limb Ataxia 2 - Present in 2 limbs -8. Sensory 1 - Mild-to- moderate sensory loss; -9. Best Language 3 - Mute, global aphasia; -10. Dysarthria 2 - Severe dysarthria; -11. Extinction and Inattention 0 - No abnormality -Total 12 Query Text:A score of 0 is normal or asymptomatic. Total possible score is 42 . ED: Notify Physician for NIHSS increase by > / = 3 points. Inpatient: RN or Physician to activate a stroke alert for NIHSS increase of > / = 3 points. Coma Scale [Assess] -Eye Opening Spontaneous -Motor Obeys Commands
[2024-12-20] MEDS: Lactated Ringers 1,000 ML 75 ML IV (08:30)
[2024-12-20] MEDS: Pantoprazole Sodium 40 MG in 0.9% Normal Saline (100mL MB+) 100 ML 300 MG IV (09:41)
[2024-12-20] MEDS: levETIRAcetam IV 1,000 MG/100 ML BAG 400 MG IV ×2 (10:22→20:15)
--- NOTE | 2024-12-20 11:07 | STROKE.PNOTE ---
Objective Data Objective Data Vital Signs: Vital Signs Temp Pulse Resp BP Pulse Ox O2 Del Method O2 Flow Rate 97.7 F L 61 21 H 105/92 H 95 Nasal Cannula 2 12/20/24 09:41 12/20/24 09:41 12/20/24 09:41 12/20/24 10:00 12/20/24 09:41 12/20/24 09:41 12/20/24 09:41 Oxygen Flow Rate (L/min) 2 Oxygen Delivery Method Nasal Cannula Weight: 73 kg Body Mass Index (BMI) 24.5 Intake & Output: Intake and Output for Last 24 Hours 12/18/24 12/19/24 12/20/24 23:59 23:59 23:59 Intake Total 200 / 200 2288.75 / 2288.75 1182.5 / 1182.5 Output Total 1500 / 1500 790 / 790 Balance -1300 / -1300 1498.75 / 1498.75 1182.5 / 1182.5 Lab / Micro Data 12/20/24 03:56 12/19/24 05:32 Labs: Laboratory Results - last 24 hr 12/20/24 03:56: WBC 6.9, RBC 3.99 L, Hgb 10.9 L, Hct 35.7 L, MCV 89.5, MCH 27.3, MCHC 30.5 L, RDW Std Deviation 44.4 H, RDW Coeff of Aly 13.7, Plt Count 355, MPV 10.0, Immature Gran % (Auto) 0.400, Neut % (Auto) 79.1 H, Lymph % (Auto) 9.9 L, [place] % (Auto) 8.5, Eos % (Auto) 1.2, Baso % (Auto) 0.9, Absolute Neuts (auto) 5.5, Absolute Lymphs (auto) 0.69 L, Nucleated RBC % 0 Micro: Microbiology 12/19/24 10:00 Stool Enteric Bacteriology - Final 12/18/24 13:51 Stool Clostridioides difficile (PCR) - Final Physical Exam Narrative MS: awake, alert-drowsy, globally aphasic, not speaking, tracks, not tracking CN: no consistent BTT, subtle L gaze preference, R pupil not reactive and larger, ?R facial droop, M: moves LUE antigravity and spontaneously, RUE moves in the plane of the bed but less brisk. Moves LE bilaterally in the plane of the bed S: responds to tactile stim in all extremities NIHSS 16 Subject: Neurology Subjective awaiting PEG tube on Monday, failed with SUSTAINABLE COMMUNITIES DESIGNER. No NGT. EEG Results Procedure Details EEG Procedure Details: PEDRO PABLO SIERRA is a 74 year old M with a past medical history of , who presents for evaluation of Electroencephalogram on DATE at TIME Assessment and Plan: Stroke Assessment/Plan 74 M with a history of atrial fibrillation (not on AC due to prior frequent falls), HTN, COPD, CAD, documented cognitive impairment, recurrent falls, epilepsy (previously on CBZ), GERD, tobacco abuse who presents on 12/17 with expressive aphasia right facial droop from left MCA stroke from atrial fibrillation (not on anticoagulation) Neurological examination shows Global aphasia, right facial droop, poorly cooperative but moved all extremities. Neuroimaging shows MRI: small Left MCA stroke. NO hemorrhagic tx. CTA: R ICA 75% and left ICA 50% stenosis #ischemic stroke-etiology is cardioembolic. -Currently on ASA. Given small size of ischemic stroke, he is safe to start AC once his BP is controlled. Would prefer a DOAC for halfway AC. I would recommend re-evaluation of candiacy for AC despite the fall risk as the patient has an high risk of future embolic events ([id number] 10, HASBLED 4). His risk of a future embolic event is higher than risk of hemorrhage. Recommend the primary team discuss risks/benefits with surrogate decision maker and/or consider a cardiology consult to discuss alternative strategies (such as watchman) -If starts AC, no need for ASA from a neurologic perspective. I see no need for Plavix currently from a neurologic perspective -continue atorva 40 -CTA: documented to have 50% L ICA stenosis, however on my calculation using NASCET criteria, it is less. Would recommend a carotid US to further evaluate and if shows >50% stenosis, would need a vascular surgery consultation to discuss CEA -TTE on 12/18: EF 55-60, unremarkable -LDL goal <70, HbA1c goal <7, BP goal is 120/80 -recommend PT/OT/SUSTAINABLE COMMUNITIES DESIGNER consult. Will likely need PEG. consider NGT for alterative access in the meantime #seizure -recommend routine EEG as his aphasia does seen to be out of proportion to his infarct burden. would want to ensure no NCSE -it appears he was switched from CBZ to keppra during this admission. Ok to continue keppra retirement if tolerating without adverse effects or recurrent seizures. ] NIHSS NIHSS Nursing Documentation NIHSS Nursing Documentation: NIHSS: Ischemic Stroke/TIA Start: 12/17/24 18:52 Text: For PCU Patients: NIH and Neuro Check every 4 Status: Active hours, PRN and with change in RN caregiver. Freq: Q12 Protocol: Activity Type Activity Date Activity User E-sign Co-sign Detail Recorded Client Recorded Date Recorded By Document 12/20/24 09:41 [id number] 12/20/24 09:46 12/20/24 09:41 NIH Stroke Scale [NIHSS] A score of 0 is normal or asymptomatic . Total possible score is 42. Inpatient: RN or Physician to activate a stroke alert for onset of new stroke symptoms or with NIHSS increase >/= 3 points. Following change in neurological status, NIHSS will be performed per physician order or more frequently PRN. -1a. Level of Consciousness 0 - Alert; keenly responsive -1b. LOC Questions 2 - Answers NEITHER question correctly -1c. LOC Commands 0 - Performs BOTH tasks correctly -2. Best Gaze 1 - Partial gaze palsy; -3. Visual 0 - No visual loss -4. Facial Palsy 1 - Minor paralysis ( flattened nasolabial fold , asymmetry on smiling) -5a. Left Arm 0 - No drift; arm holds 90 ( or 45) degrees for full 10 seconds -5b. Right Arm 0 - No drift; arm holds 90 ( or 45) degrees for full 10 seconds -6a. Left Leg 0 - No drift; leg holds 30- degree position for full 5 seconds -6b. Right Leg 0 - No drift; leg holds 30- degree position for full 5 seconds -7. Limb Ataxia 2 - Present in 2 limbs -8. Sensory 1 - Mild-to- moderate sensory loss; -9. Best Language 3 - Mute, global aphasia; -10. Dysarthria 2 - Severe dysarthria; -11. Extinction and Inattention 0 - No abnormality -Total 12 Query Text:A score of 0 is normal or asymptomatic. Total possible score is 42 . ED: Notify Physician for NIHSS increase by > / = 3 points. Inpatient: RN or Physician to activate a stroke alert for NIHSS increase of > / = 3 points.
--- NOTE | 2024-12-20 11:54 | CDU_ITS ---
Reason For Study Reason For Study: Stenosis Rt. Velocities/BP Lt. Velocities/BP Prox CCA 112/11.5 cm/sec. Prox CCA 90/13.3 cm/sec. Mid CCA 104.7/11.5 cm/sec. Mid CCA 106.5/18.8 cm/sec. Dist CCA 66.3/6.9 cm/sec. Dist CCA 79.1/11.5 cm/sec. Prox ICA 113.8/18.8 cm/sec. Prox ICA 95.5/17 cm/sec. Mid ICA 150.3/24.3 cm/sec. Mid ICA 82.7/17 cm/sec. Dist ICA 51/9.6 cm/sec. Dist ICA 125.2/21.8 cm/sec. Rt. ICA/CCA = 1.44. Lt. ICA/CCA = 1.18. Prox ECA 240.2 cm/sec. Prox ECA 164.9/11.5 cm/sec. Rt. Vert. 82.7/13.3 cm/sec. Lt. Vert. 73/12.6 cm/sec. Right Extracranial There is heterogeneous, irregular atherosclerotic plaque noted in the right common carotid artery. There is heterogeneous, irregular atherosclerotic plaque noted in the right internal carotid artery. The atherosclerotic plaque causes acoustic shadowing. There is heterogeneous, irregular atherosclerotic plaque noted in the right external carotid artery. Antegrade flow is noted in the right vertebral artery. Left Extracranial There is heterogeneous, irregular atherosclerotic plaque noted in the left common carotid artery. There is heterogeneous, irregular atherosclerotic plaque noted in the left internal carotid artery. There is heterogeneous, irregular atherosclerotic plaque noted in the left external carotid artery. Antegrade flow is noted in the left vertebral artery. Procedure Carotid Duplex [id number]. This is a Carotid Duplex examination using B-mode, color flow and specral Doppler. Exam performed portable in patient room. VL/Carotid Duplex Ultrasound Interpretation Summary Moderate (50-69%) stenosis right extracranial internal carotid. Moderate (50-69%) stenosis left extracranial internal carotid. Patent and antegrade vertebrals bilaterally. Ordering Physician: Lisha Talamantes Referring Physician: Daija Douglas Performed By: Nohemi Juárez RVT
[2024-12-20] MEDS: Thiamine Hydrochloride 500 MG in 0.9% Normal Saline (100mL Bag) 100 ML 200 MG IV ×2 (12:41→20:42)
--- NOTE | 2024-12-20 13:49 | CPS ---
pt refusing EEG test and dr Talamantes has been notified. Will attempt to do EEG again tomorrow
[2024-12-20 14:13] LABS: Vitamin B12 774 pg/mL (180-914)
[2024-12-21] VITALS (13 sets, daily range): BP systolic 146–200; BP diastolic 54–85; PULSE 55–70; RESP 18–22; TEMP 36.3–36.6; O2SAT 91–97; BMI 24.5
[2024-12-21] MEDS: Lactated Ringers 1,000 ML 75 ML IV ×2 (00:14→14:10)
[2024-12-21] MEDS: 0.9% Saline Lock 10 ML Syringe IV ×2 (04:56→17:08)
[2024-12-21] MEDS: Thiamine Hydrochloride 500 MG in 0.9% Normal Saline (100mL Bag) 100 ML 200 MG IV (04:56)
--- NOTE | 2024-12-21 06:47 | CPS ---
patient still refusing EEG
[2024-12-21 07:00] LABS: Hematocrit 33.8 % (40-54); Hemoglobin 10.4 g/dL (13.0-16.5); Immature Granulocytes Count 0.030 X10^3/uL (0.0-0.0); Mean Corp Hgb Conc 30.8 g/dL (32-36); Mean Corpuscular Volume 89.7 fL (80-94); Mean Platelet Vol. 9.7 fl (6.2-12.0); NRBC Flagged by Analyzer 0 % (0-5); Platelet Count 326 K/mm3 (150-450); RBC Distribution Width CV 13.7 % (11.6-14.6); RBC Distribution Width SD 44.7 fl (35.1-43.9); Red Blood Count 3.77 M/mm3 (4.6-6.2); White Blood Count 6.7 K/mm3 (4.4-11.0)
[2024-12-21 07:39] LABS: Anion Gap 9 (5-15); BUN 16 mg/dL (4-19); BUN/Creat Ratio 16.2 RATIO (10-20); Calcium,Total 8.3 mg/dL (7.6-11.0); Carbon Dioxide 25.0 mmol/L (21.0-32.0); Chloride 105 mmol/L (98-108); Estimated Creatinine Clearance 62.37 ml/min (50-250); Glucose 95 mg/dL (70-99); Potassium 3.5 mmol/L (3.3-5.1)
[2024-12-21] MEDS: Pantoprazole Sodium 40 MG in 0.9% Normal Saline (100mL MB+) 100 ML 300 MG IV (10:12)
[2024-12-21] MEDS: levETIRAcetam IV 1,000 MG/100 ML BAG 400 MG IV ×2 (10:18→21:08)
--- NOTE | 2024-12-21 11:19 | CPS ---
RT explained EEG again for third time of which patient refused again.
--- NOTE | 2024-12-21 12:43 | PCM.PN.HOSP ---
Reason for Visit Reason for Visit: Aphasia/Facial droop Subjective Subjective No issues overnight. Neuro wanted EEG and pt has not refused 3 x despite us explaining why we needed to do it. Became borderline aggressive on the last attempt. Blood pressure still up despite interventions done yesterday so we will just for today. Objective Data Objective Data Vital Signs: Vital Signs Temp Pulse Resp BP Pulse Ox O2 Del Method O2 Flow Rate 97.4 F L 55 L 18 200/85 H 93 Nasal Cannula 3 12/21/24 02:40 12/21/24 10:16 12/21/24 06:42 12/21/24 10:16 12/21/24 06:42 12/21/24 08:35 12/21/24 11:18 Oxygen Flow Rate (L/min) 3 Oxygen Delivery Method Nasal Cannula Weight: 73 kg Body Mass Index (BMI) 24.5 Intake & Output: Intake and Output for Last 24 Hours 12/19/24 12/20/24 12/21/24 23:59 23:59 23:59 Intake Total 2288.75 / 2288.75 2231.25 / 2231.25 882.5 / 882.5 Output Total 790 / 790 1150 / 1150 300 / 300 Balance 1498.75 / 1498.75 1081.25 / 1081.25 582.5 / 582.5 Lab / Micro Data 12/21/24 06:47 12/21/24 06:47 Labs: Laboratory Results - last 24 hr 12/20/24 03:56: Vitamin B12 774 12/21/24 06:47: WBC 6.7, RBC 3.77 L, Hgb 10.4 L, Hct 33.8 L, MCV 89.7, MCH 27.6, MCHC 30.8 L, RDW Std Deviation 44.7 H, RDW Coeff of Aly 13.7, Plt Count 326, MPV 9.7, Immature Gran % (Auto) 0.400, Neut % (Auto) 75.1 H, Lymph % (Auto) 14.2 L, [place] % (Auto) 8.5, Eos % (Auto) 1.2, Baso % (Auto) 0.6, Absolute Neuts (auto) 5.0, Absolute Lymphs (auto) 0.95, Nucleated RBC % 0, Sodium 139, Potassium 3.5, Chloride 105, Carbon Dioxide 25.0, Anion Gap 9, BUN 16, Creatinine 0.99, Estim Creat Clear Calc 62.37, Est GFR (MDRD) Non-Af 80, BUN/Creatinine Ratio 16.2, Glucose 95, Calcium 8.3 Micro: Microbiology 12/19/24 10:00 Stool Enteric Bacteriology - Final 12/18/24 13:51 Stool Clostridioides difficile (PCR) - Final Physical Exam Const alert, no apparent distress and average body habitus; Negative for healthy appearing Constitutional Narrative: Older, white male, appears older than stated age, sitting up in bed, watching television, calm today but gets intermittently agitated, nursing at bedside, intermittently uncooperative HEENT normocephalic, head/scalp atraumatic and moist oral mucous membranes HEENT Narrative: Tongue deviates to the right Resp normal respiratory effort, no retractions, no use of accessory muscles and No clear to auscultation bilaterally Resp Narrative: Markedly diminished but clear few scattered and expiratory wheezes that are very slight and not nearly as coarse as he typically is Auscultation: wheezes; Negative for crackles or rhonchi Cardio regular rate, regular rhythm, S1 normal heart sound, S2 normal heart sound, no murmurs, no rub, no gallops and no clicks Cardio Narrative: Irregularly irregular GI normal to inspection, nondistended, normoactive bowel sounds, soft to palpation and non-tender Extremity no clubbing, cyanosis or edema Extremity Narrative: Pedal radial pulses are 2+ Neuro moves all extremities Neuro Narrative: Patient with continued obvious global aphasia, seems to move all extremities symmetrically, left facial droop, right pupil is chronically abnormal, tongue deviates to the right Sensorium / Orientation: awake and alert Speech: Negative for speech normal Psych Psych Narrative: Remains intermittently agitated and compliant Assessment & Plan Assessment/Plan (1) Acute CVA (cerebrovascular accident): (2) Facial droop: (3) Aphasia: PLAN: Plan Acute left MCA stroke - Ongoing deficits include global aphasia, right facial droop and poorly cooperative due to aphasia - Likely cardioembolic as patient has history of atrial fibrillation and not able to be anticoagulated due to recurrent falls -Per discussion with neurology will start Eliquis 5 mg p.o. twice daily after PEG placement as patient is to be institutionalized after discharge for rehab which should decrease his fall risk and overall his stroke risk is higher than his bleed risk at this time - Continue aspirin - Continue atorvastatin 40 mg daily as p.o. intake allows - EEG ordered and tried 3 times however patient refused each time so we will discontinue - B12 level is within normal limits at 774 - Patient received thiamine 500 mg every 8 hours x 1 day will start 250 mg daily x 2 days starting tomorrow and then 100 mg daily to follow -Goal blood pressure is about 140-160 for the next several days then decrease to 130/80 or less and ideally right around 160 - Continue labetalol 20 every 6, add hydralazine 10 every 6 and clonidine patch at 0.2 mg - Continue PT/OT/speech therapy - Neurology consultation noted-appreciate input and assistance - Carotid Dopplers are pending as the CTA suggested he has pretty significant narrowing--> neuro reviewed the images themselves and they feel that this was an overcall and desired duplex Dysphagia - Not improving clinically and hit or miss with compliance and desire to do therapy - Patient has high aspiration risk - Continue speech therapy - Remains n.p.o. - Continue IV fluids - Consult GI for PEG placement--> discussed with Dr. Henderson and plan is for PEG placement on Monday History of paroxysmal atrial fibrillation - Continue IV labetalol - With current debilities stroke risk is higher than bleed risk so we will go ahead and start Eliquis 5 mg daily after PEG placement COPD with recent hospitalization for exacerbation - Please Solu-Medrol to 30 daily for x 4 days then only to 20 x 4 then 10 x 4 then stop - Continue aerosols as ordered Chronic normocytic anemia - Counts remain stable - Monitor CKD stage II - Creatinine stable - Follow Generalized weakness/debility/failure to thrive - Patient with ongoing chronic issues with debility and weakness as well as failure to thrive on top of acute stroke - Was recently just discharged home with home health care - Given acute infarct will need placement at the time of discharge Osteoporosis -Restart alendronate at discharge -Hold home cholecalciferol Seizure disorder - Hold home carbamazepine - Continue Keppra 1000 mg IV twice daily and transition back to carbamazepine once we could start enteral feeds CAD/essential hypertension/hyperlipidemia/history of stroke/PAD -Blood pressure is markedly elevated on presentation however it does not appear patient been compliant with his medications -Hold home nifedipine 90 mg daily -Hold home metoprolol 25 mg p.o. daily -Hold home losartan 100 mg daily -Hold home clonidine 0.1 mg p.o. twice daily -Patient currently on IV medication in the form of labetalol, hydralazine, and clonidine patch for blood pressure control with current systolic goal between 140 and 160 -Will add back home medication as able after PEG placed -Continue as needed IV medication for stroke protocol BPH with obstruction -Hold home Flomax -Hold home finasteride GERD -Continue PPI transition IV Tobacco abuse -continue nicotine patch -Recommend cessation Depression -Hold home sertraline DVT prophylaxis -Subcu Lovenox daily CODE STATUS - Full code Charges/Coding Visit Charges Inpatient E&M: 49775 Subs Hosp L2 NIHSS NIHSS Nursing Documentation NIHSS Nursing Documentation: NIHSS: Ischemic Stroke/TIA Start: 12/17/24 18:52 Text: For PCU Patients: NIH and Neuro Check every 4 Status: Active hours, PRN and with change in RN caregiver. Freq: Q12 Protocol: Activity Type Activity Date Activity User E-sign Co-sign Detail Recorded Client Recorded Date Recorded By Document 12/21/24 08:35 DS [id number] 12/21/24 11:09 DS 12/21/24 08:35 NIH Stroke Scale [NIHSS] A score of 0 is normal or asymptomatic . Total possible score is 42. Inpatient: RN or Physician to activate a stroke alert for onset of new stroke symptoms or with NIHSS increase >/= 3 points. Following change in neurological status, NIHSS will be performed per physician order or more frequently PRN. -1a. Level of Consciousness 0 - Alert; keenly responsive -1b. LOC Questions 2 - Answers NEITHER question correctly -1c. LOC Commands 1 - Performs ONE task correctly -2. Best Gaze 1 - Partial gaze palsy; -3. Visual 0 - No visual loss -4. Facial Palsy 1 - Minor paralysis ( flattened nasolabial fold , asymmetry on smiling) -5a. Left Arm 0 - No drift; arm holds 90 ( or 45) degrees for full 10 seconds -5b. Right Arm 0 - No drift; arm holds 90 ( or 45) degrees for full 10 seconds -6a. Left Leg 0 - No drift; leg holds 30- degree position for full 5 seconds -6b. Right Leg 0 - No drift; leg holds 30- degree position for full 5 seconds -7. Limb Ataxia 2 - Present in 2 limbs -8. Sensory 1 - Mild-to- moderate sensory loss; -9. Best Language 3 - Mute, global aphasia; -10. Dysarthria 2 - Severe dysarthria; -11. Extinction and Inattention 0 - No abnormality -Total 13 Query Text:A score of 0 is normal or asymptomatic. Total possible score is 42 . ED: Notify Physician for NIHSS increase by > / = 3 points. Inpatient: RN or Physician to activate a stroke alert for NIHSS increase of > / = 3 points. Coma Scale [Assess] -Eye Opening Spontaneous -Motor Obeys Commands -Verbal Incomprehensibl e [Total] -Coma Scale Total 12
--- NOTE | 2024-12-21 13:36 | STROKE.PNOTE ---
Objective Data Objective Data Vital Signs: Vital Signs Temp Pulse Resp BP Pulse Ox O2 Del Method O2 Flow Rate 97.4 F L 57 L 18 146/75 H 93 Nasal Cannula 3 12/21/24 02:40 12/21/24 13:10 12/21/24 06:42 12/21/24 13:10 12/21/24 06:42 12/21/24 08:35 12/21/24 11:18 Oxygen Flow Rate (L/min) 3 Oxygen Delivery Method Nasal Cannula Weight: 73 kg Body Mass Index (BMI) 24.5 Intake & Output: Intake and Output for Last 24 Hours 12/19/24 12/20/24 12/21/24 23:59 23:59 23:59 Intake Total 2288.75 / 2288.75 2231.25 / 2231.25 882.5 / 882.5 Output Total 790 / 790 1150 / 1150 300 / 300 Balance 1498.75 / 1498.75 1081.25 / 1081.25 582.5 / 582.5 Lab / Micro Data 12/21/24 06:47 12/21/24 06:47 Labs: Laboratory Results - last 24 hr 12/20/24 03:56: Vitamin B12 774 12/21/24 06:47: WBC 6.7, RBC 3.77 L, Hgb 10.4 L, Hct 33.8 L, MCV 89.7, MCH 27.6, MCHC 30.8 L, RDW Std Deviation 44.7 H, RDW Coeff of Aly 13.7, Plt Count 326, MPV 9.7, Immature Gran % (Auto) 0.400, Neut % (Auto) 75.1 H, Lymph % (Auto) 14.2 L, Page % (Auto) 8.5, Eos % (Auto) 1.2, Baso % (Auto) 0.6, Absolute Neuts (auto) 5.0, Absolute Lymphs (auto) 0.95, Nucleated RBC % 0, Sodium 139, Potassium 3.5, Chloride 105, Carbon Dioxide 25.0, Anion Gap 9, BUN 16, Creatinine 0.99, Estim Creat Clear Calc 62.37, Est GFR (MDRD) Non-Af 80, BUN/Creatinine Ratio 16.2, Glucose 95, Calcium 8.3 Micro: Microbiology 12/19/24 10:00 Stool Enteric Bacteriology - Final 12/18/24 13:51 Stool Clostridioides difficile (PCR) - Final Physical Exam Neuro Neuro Narrative: Neurological examination: General: The patient appears sleepy, poor attention, unable to cooperate for most of exam. Mental Status: ?The patient?s mental status was decreased, garbled speech not intelligible, does not follow most commands. ?Cranial nerves: ?No visual complaints, and extra-ocular motion was intact. Eyes open, Face symmetric. ?There was sever dysarthria. Motor: Anti-gravity in bilateral arms, bilateral legs move side to side. Sensation: Deferred. ?Coordination: ??There was no dysmetria. Gait: ?deferred Subject: Neurology Subjective 178/79. Primary team reports patient refused EEG. EEG Results Procedure Details EEG Procedure Details: PEDRO PABLO SIERRA is a 74 year old M with a past medical history of , who presents for evaluation of Electroencephalogram on DATE at TIME Assessment and Plan: Stroke Assessment/Plan PEDRO PABLO SIERRA is a 74 M smoker with a history of atrial fibrillation (not on AC, coumadin stopped since Mar), HTN, COPD exacerbation (recent hospitalization for respirature failure), HTN, HL, PVD, Seizure disorder on keppra, PVD, and CD who presented to [facility] ED on 12/17/2024 with dysarthria and right-sided facial droop (LKN noon). Initial NIHSS [address] brain negative. CTA head neck shows R ICA 75% and left ICA 50% stenosis. MRI brain DWi + small acute left MCA infarct. LDL 63, HgbA1c 5.9. TTE EF 55%. Neurological examination shows decreased mental status, NIHSS 15. ASSESSMENT/PLAN: Acute left MCA ischemic stroke, PSD # 4. Stroke mechanism is like cardioembolism due to Afib. 1) Stroke work-up pending including EEG (patient refused) and CUS. 2) Continue daily anti-platelet med (Asa) for now. 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 On lipitor 40. 4) Failed swallow eval. Patient currently NPO. Agree with plan for PEG 5) Agree with plan to start eliquis after PEG (and stop Asa once on eliquis). 6) Continue AEDs for seizure disorder 7) PT/OT consults. Primary team messaged recs on backline. Maya Talamantes MD NIHSS NIHSS Nursing Documentation NIHSS Nursing Documentation: NIHSS: Ischemic Stroke/TIA Start: 12/17/24 18:52 Text: For PCU Patients: NIH and Neuro Check every 4 Status: Active hours, PRN and with change in RN caregiver. Freq: Q12 Protocol: Activity Type Activity Date Activity User E-sign Co-sign Detail Recorded Client Recorded Date Recorded By Document 12/21/24 08:35 DS [id number] 12/21/24 11:09 DS 12/21/24 08:35 NIH Stroke Scale [NIHSS] A score of 0 is normal or asymptomatic . Total possible score is 42. Inpatient: RN or Physician to activate a stroke alert for onset of new stroke symptoms or with NIHSS increase >/= 3 points. Following change in neurological status, NIHSS will be performed per physician order or more frequently PRN. -1a. Level of Consciousness 0 - Alert; keenly responsive -1b. LOC Questions 2 - Answers NEITHER question correctly -1c. LOC Commands 1 - Performs ONE task correctly -2. Best Gaze 1 - Partial gaze palsy; -3. Visual 0 - No visual loss -4. Facial Palsy 1 - Minor paralysis ( flattened nasolabial fold , asymmetry on smiling) -5a. Left Arm 0 - No drift; arm holds 90 ( or 45) degrees for full 10 seconds -5b. Right Arm 0 - No drift; arm holds 90 ( or 45) degrees for full 10 seconds -6a. Left Leg 0 - No drift; leg holds 30- degree position for full 5 seconds -6b. Right Leg 0 - No drift; leg holds 30- degree position for full 5 seconds -7. Limb Ataxia 2 - Present in 2 limbs -8. Sensory 1 - Mild-to- moderate sensory loss; -9. Best Language 3 - Mute, global aphasia; -10. Dysarthria 2 - Severe dysarthria; -11. Extinction and Inattention 0 - No abnormality -Total 13 Query Text:A score of 0 is normal or asymptomatic. Total possible score is 42 . ED: Notify Physician for NIHSS increase by > / = 3 points. Inpatient: RN or Physician to activate a stroke alert for NIHSS increase of > / = 3 points. Coma Scale [Assess] -Eye Opening Spontaneous -Motor Obeys Commands -Verbal Incomprehensibl e [Total] -Coma Scale Total 12 NIHSS 1a. Level of Consciousness: 1 - Not alert; Arousable by minor stimuli to obey, answer & respond 1b. LOC Questions: 2 - Answers NEITHER question correctly 1c. LOC Commands: 2 - Performs NEITHER task correctly 2. Best Gaze: 0 - Normal 3. Visual: 0 - No visual loss 4. Facial Palsy: 0 - Normal symmetrical movements 5a. Left Arm: 0 - No drift; arm holds 90 (or 45) degrees for full 10 seconds 5b. Right Arm: 0 - No drift; arm holds 90 (or 45) degrees for full 10 seconds 6a. Left Le - No effort against gravity; leg falls to bed immediately 6b. Right Le - No effort against gravity; leg falls to bed immediately 7. Limb Ataxia: 0 - Absent 8. Sensory: 0 - Normal; no sensory loss 9. Best Language: 2 - Severe aphasia; 10. Dysarthria: 2 - Severe dysarthria; Total: 15
--- NOTE | 2024-12-21 16:31 | CPS ---
Patient refusing EEG after [address] Hays notified and EEG cancelled per dr hays
[2024-12-22] VITALS (12 sets, daily range): BP systolic 151–175; BP diastolic 46–71; PULSE 55–71; RESP 17–22; TEMP 36.2–36.6; O2SAT 93–98; BMI 24.5
[2024-12-22] MEDS: Lactated Ringers 1,000 ML 75 ML IV ×2 (04:23→18:46)
[2024-12-22] MEDS: 0.9% Saline Lock 10 ML Syringe IV ×4 (05:11→18:31)
[2024-12-22 05:50] LABS: Hematocrit 37.7 % (40-54); Hemoglobin 11.7 g/dL (13.0-16.5); Mean Corp Hgb Conc 31.0 g/dL (32-36); Mean Corpuscular Volume 89.1 fL (80-94); Mean Platelet Vol. 10.1 fl (6.2-12.0); Platelet Count 392 K/mm3 (150-450); RBC Distribution Width CV 13.8 % (11.6-14.6); RBC Distribution Width SD 45.0 fl (35.1-43.9); Red Blood Count 4.23 M/mm3 (4.6-6.2); White Blood Count 7.5 K/mm3 (4.4-11.0)
[2024-12-22 06:15] LABS: Anion Gap 11 (5-15); BUN 16 mg/dL (4-19); BUN/Creat Ratio 15.7 RATIO (10-20); Calcium,Total 8.8 mg/dL (7.6-11.0); Carbon Dioxide 24.6 mmol/L (21.0-32.0); Chloride 103 mmol/L (98-108); Estimated Creatinine Clearance 59.95 ml/min (50-250); Glucose 84 mg/dL (70-99); Potassium 3.6 mmol/L (3.3-5.1)
--- NOTE | 2024-12-22 07:33 | PCM.PN.HOSP ---
Reason for Visit Reason for Visit: facial droop/aphasia Subjective Subjective Patient has consistently refused EEG so we will discontinue this order. He does seem to be intermittently agitated and frustrated. Blood pressure still above goal so we will add medication to see if we can improve this. Will transition to orals once PEG is placed. Objective Data Objective Data Vital Signs: Vital Signs Temp Pulse Resp BP Pulse Ox O2 Del Method O2 Flow Rate 97.7 F L 71 20 H 155/61 H 93 Nasal Cannula 2 12/22/24 04:01 12/22/24 06:44 12/22/24 06:44 12/22/24 04:01 12/22/24 06:44 12/22/24 06:44 12/22/24 06:44 Oxygen Flow Rate (L/min) 2 Oxygen Delivery Method Nasal Cannula Weight: 73 kg Body Mass Index (BMI) 24.5 Intake & Output: Intake and Output for Last 24 Hours 12/20/24 12/21/24 12/22/24 23:59 23:59 23:59 Intake Total 2231.25 / 2231.25 1625.0 / 1625.0 1000 / 1000 Output Total 1150 / 1150 750 / 1150 850 / 850 Balance 1081.25 / 1081.25 875.0 / 475.0 150 / 150 Lab / Micro Data 12/22/24 04:43 12/22/24 04:43 Labs: Laboratory Results - last 24 hr 12/21/24 06:47: Sodium 139, Potassium 3.5, Chloride 105, Carbon Dioxide 25.0, Anion Gap 9, BUN 16, Creatinine 0.99, Estim Creat Clear Calc 62.37, Est GFR (MDRD) Non-Af 80, BUN/Creatinine Ratio 16.2, Glucose 95, Calcium 8.3 12/22/24 04:43: WBC 7.5, RBC 4.23 L, Hgb 11.7 L, Hct 37.7 L, MCV 89.1, MCH 27.7, MCHC 31.0 L, RDW Std Deviation 45.0 H, RDW Coeff of Aly 13.8, Plt Count 392, MPV 10.1, Sodium 139, Potassium 3.6, Chloride 103, Carbon Dioxide 24.6, Anion Gap 11, BUN 16, Creatinine 1.03, Estim Creat Clear Calc 59.95, Est GFR (MDRD) Non-Af 76, BUN/Creatinine Ratio 15.7, Glucose 84, Calcium 8.8 Micro: Microbiology 12/19/24 10:00 Stool Enteric Bacteriology - Final 12/18/24 13:51 Stool Clostridioides difficile (PCR) - Final Physical Exam Const alert, no apparent distress and average body habitus; Negative for healthy appearing Constitutional Narrative: Older, white male, appears older than stated age, lying in bed getting cleaned up with nursing staff, currently calm but intermittently refuses care, seems intermittently frustrated HEENT normocephalic and head/scalp atraumatic HEENT Narrative: Mucous membranes are slightly dry, tongue deviates to the right, dentition is poor, Mallampati is 2, no thrush Resp normal respiratory effort, no retractions, no use of accessory muscles and clear to auscultation bilaterally Resp Narrative: Markedly diminished but clear Auscultation: Negative for crackles, rhonchi or wheezes Cardio regular rate, regular rhythm, S1 normal heart sound, S2 normal heart sound, no murmurs, no rub, no gallops and no clicks Cardio Narrative: Irregularly irregular GI normal to inspection, nondistended, normoactive bowel sounds, soft to palpation and non-tender Extremity no clubbing, cyanosis or edema Extremity Narrative: Pedal radial pulses are 2+ Neuro moves all extremities Neuro Narrative: Patient with continued obvious global aphasia, seems to move all extremities symmetrically, left facial droop, right pupil is chronically abnormal, tongue deviates to the right Speech: Negative for speech normal Psych Psych Narrative: Remains intermittently agitated and noncompliant Assessment & Plan Assessment/Plan (1) Acute CVA (cerebrovascular accident): (2) Facial droop: (3) Aphasia: PLAN: Plan Acute left MCA stroke - Ongoing deficits include global aphasia, right facial droop and poorly cooperative due to aphasia - Likely cardioembolic as patient has history of atrial fibrillation and not able to be anticoagulated due to recurrent falls -Per discussion with neurology will start Eliquis 5 mg p.o. twice daily after PEG placement as patient is to be institutionalized after discharge for rehab which should decrease his fall risk and overall his stroke risk is higher than his bleed risk at this time - Continue aspirin - Continue atorvastatin 40 mg daily as p.o. intake allows - EEG ordered and tried 3 times however patient refused each time so we will discontinue - B12 level is within normal limits at 774 - Patient received thiamine 500 mg every 8 hours x 1 day will start 250 mg daily x 2 days starting tomorrow and then 100 mg daily to follow -Goal blood pressure is about 140-160 for the next several days then decrease to 130/80 or less and ideally right around 160 - Continue labetalol 20 every 6, add hydralazine 10 every 6 and clonidine patch at 0.2 mg -BP is still above goal so we will add enalapril at 1.25 every 6 hours - Continue PT/OT/speech therapy - Neurology consultation noted-appreciate input and assistance - Carotid Dopplers are pending as the CTA suggested he has pretty significant narrowing--> neuro reviewed the images themselves and they feel that this was an overcall and desired duplex - Duplex remains pending anticipate this being done tomorrow Dysphagia - Not improving clinically and hit or miss with compliance and desire to do therapy - Patient has high aspiration risk - Continue speech therapy - Remains n.p.o. - Continue IV fluids with LR at 75 cc/h -Monitoring closely for signs of aspiration - Consult GI for PEG placement--> discussed with Dr. Hednerson and plan is for PEG placement on Monday Diarrhea - Chronic - Infectious etiologies are unremarkable - Will add Imodium as needed once able to have enteral access History of paroxysmal atrial fibrillation - Continue IV labetalol - Currently in sinus rhythm - With current debilities stroke risk is higher than bleed risk so we will go ahead and start Eliquis 5 mg daily after PEG placement when okay with GI COPD with recent hospitalization for exacerbation - Please Solu-Medrol to 30 daily for x 4 days then only to 20 x 4 then 10 x 4 then stop -12/22/2024 is day 2 of 4 for 30 mg dosing - Continue aerosols as ordered - No current wheezing - Monitoring closely for aspiration Chronic normocytic anemia - Counts remain stable - Monitor CKD stage II - Creatinine stable - Follow Generalized weakness/debility/failure to thrive - Patient with ongoing chronic issues with debility and weakness as well as failure to thrive on top of acute stroke - Was recently just discharged home with home health care - Given acute infarct will need placement at the time of discharge Osteoporosis -Restart alendronate at discharge -Hold home cholecalciferol Seizure disorder - Hold home carbamazepine - Continue Keppra 1000 mg IV twice daily and transition back to carbamazepine once we could start enteral feeds CAD/essential hypertension/hyperlipidemia/history of stroke/PAD -Blood pressure is markedly elevated on presentation however it does not appear patient been compliant with his medications -Hold home nifedipine 90 mg daily -Hold home metoprolol 25 mg p.o. daily -Hold home losartan 100 mg daily -Hold home clonidine 0.1 mg p.o. twice daily - Despite IV labetalol, hydralazine, and clonidine patch as blood pressures are still above goal which currently should be around 140 -Will add scheduled enalaprilat 1.25 every 6 hours -As of 12/23/2024 should be able to drop the patient's blood pressure to more normotensive range with a goal being less than 140 and ideally 130 or less -Continue as needed IV medication for stroke protocol BPH with obstruction -Hold home Flomax -Hold home finasteride GERD -Continue PPI transition IV Tobacco abuse -continue nicotine patch -Recommend cessation Depression -Hold home sertraline DVT prophylaxis -Subcu Lovenox daily CODE STATUS - Full code Charges/Coding Visit Charges Inpatient E&M: 46445 Subs Hosp L2 NIHSS NIHSS Nursing Documentation NIHSS Nursing Documentation: NIHSS: Ischemic Stroke/TIA Start: 12/17/24 18:52 Text: For PCU Patients: NIH and Neuro Check every 4 Status: Active hours, PRN and with change in RN caregiver. Freq: Q12 Protocol: Activity Type Activity Date Activity User E-sign Co-sign Detail Recorded Client Recorded Date Recorded By Document 12/21/24 21:20 [id number] 12/21/24 21:19 12/21/24 21:20 NIH Stroke Scale [NIHSS] A score of 0 is normal or asymptomatic . Total possible score is 42. Inpatient: RN or Physician to activate a stroke alert for onset of new stroke symptoms or with NIHSS increase >/= 3 points. Following change in neurological status, NIHSS will be performed per physician order or more frequently PRN. -1a. Level of Consciousness 0 - Alert; keenly responsive -1b. LOC Questions 2 - Answers NEITHER question correctly -1c. LOC Commands 2 - Performs NEITHER task correctly -2. Best Gaze 0 - Normal -3. Visual 0 - No visual loss -4. Facial Palsy 1 - Minor paralysis ( flattened nasolabial fold , asymmetry on smiling) -5a. Left Arm 0 - No drift; arm holds 90 ( or 45) degrees for full 10 seconds -5b. Right Arm 1 - Drift; arm drifts downward but doesn?t hit the bed -6a. Left Leg 1 - Drift; leg falls by the end of 5- seconds, but does not hit bed -6b. Right Leg 2 - Some effort against gravity; -7. Limb Ataxia 0 - Absent -8. Sensory 0 - Normal; no sensory loss -9. Best Language 3 - Mute, global aphasia; -10. Dysarthria 2 - Severe dysarthria; -11. Extinction and Inattention 0 - No abnormality -Total 14 Query Text:A score of 0 is normal or asymptomatic. Total possible score is 42 . ED: Notify Physician for NIHSS increase by > / = 3 points. Inpatient: RN or Physician to activate a stroke alert for NIHSS increase of > / = 3 points. Coma Scale [Assess] -Eye Opening Spontaneous -Motor Obeys Commands -Verbal Incomprehensibl e [Total] -Coma Scale Total 12
[2024-12-22] MEDS: Pantoprazole Sodium 40 MG in 0.9% Normal Saline (100mL MB+) 100 ML 300 MG IV (09:14)
--- NOTE | 2024-12-22 09:14 | STROKE.PNOTE ---
Objective Data Objective Data Vital Signs: Vital Signs Temp Pulse Resp BP Pulse Ox O2 Del Method O2 Flow Rate 97.7 F L 63 17 151/46 H 98 Nasal Cannula 2 12/22/24 08:11 12/22/24 08:11 12/22/24 08:11 12/22/24 08:11 12/22/24 08:11 12/22/24 08:19 12/22/24 08:19 Oxygen Flow Rate (L/min) 2 Oxygen Delivery Method Nasal Cannula Weight: 73 kg Body Mass Index (BMI) 24.5 Intake & Output: Intake and Output for Last 24 Hours 12/20/24 12/21/24 12/22/24 23:59 23:59 23:59 Intake Total 2231.25 / 2231.25 1625.0 / 1625.0 1000 / 1000 Output Total 1150 / 1150 750 / 1150 850 / 850 Balance 1081.25 / 1081.25 875.0 / 475.0 150 / 150 Lab / Micro Data 12/22/24 04:43 12/22/24 04:43 Labs: Laboratory Results - last 24 hr 12/22/24 04:43: WBC 7.5, RBC 4.23 L, Hgb 11.7 L, Hct 37.7 L, MCV 89.1, MCH 27.7, MCHC 31.0 L, RDW Std Deviation 45.0 H, RDW Coeff of Aly 13.8, Plt Count 392, MPV 10.1, Sodium 139, Potassium 3.6, Chloride 103, Carbon Dioxide 24.6, Anion Gap 11, BUN 16, Creatinine 1.03, Estim Creat Clear Calc 59.95, Est GFR (MDRD) Non-Af 76, BUN/Creatinine Ratio 15.7, Glucose 84, Calcium 8.8 Micro: Microbiology 12/19/24 10:00 Stool Enteric Bacteriology - Final 12/18/24 13:51 Stool Clostridioides difficile (PCR) - Final Physical Exam Neuro Neuro Narrative: Neurological examination: General: The patient appears sleepy, poor attention, unable to cooperate for most of exam. Mental Status: ?The patient?s mental status was decreased, garbled speech not intelligible, does not follow most commands. ?Cranial nerves: ?No visual complaints, and extra-ocular motion was intact. Eyes open, Face symmetric. ?There was severe dysarthria. Motor: Uncooperative, but appears anti-gravity in left arm. Sensation: Deferred. ?Coordination: ??There was no dysmetria. Gait: ?deferred Subject: Neurology Subjective RN reports they were unable to do EEG- would take his left arm and swat the tech away. Patient moves his left side strongly when he wants, but right side remains plegic. For me, patient uncooperative with exam. Assessment and Plan: Stroke Assessment/Plan Assessment/Plan PEDRO PABLO SIERRA is a 74 M smoker with a history of atrial fibrillation (not on AC, coumadin stopped since Mar), HTN, COPD exacerbation (recent hospitalization for respiratory failure), HTN, HL, PVD, Seizure disorder on keppra, PVD, and CD who presented to [facility] ED on 12/17/2024 with dysarthria and right-sided facial droop (LKN noon). Initial NIHSS [address] brain negative. CTA head neck shows R ICA 75% and left ICA 50% stenosis. MRI brain DWI + small acute left MCA infarct. LDL 63, HgbA1c 5.9. TTE EF 55%. Neurological examination shows decreased mental status, NIHSS 15. ASSESSMENT/PLAN: Acute left MCA ischemic stroke, PSD # 4. Stroke mechanism is like cardioembolism due to Afib. 1) Stroke work-up pending including EEG (patient refused) and CUS. 2) Continue daily anti-platelet med (Asa) for now. watermaster will need AC for Afib stroke prevention (but start after PEG) 3) Continue vascular risk factor modification. On lipitor 40. 4) Failed swallow eval. Patient currently NPO. Agree with plan for PEG 5) Agree with plan to start eliquis after PEG (and stop Asa once on eliquis). 6) Continue AEDs for seizure disorder 7) PT/OT consults. Primary team messaged recs on backline. Maya Talamantes MD NIHSS NIHSS Nursing Documentation NIHSS Nursing Documentation: NIHSS: Ischemic Stroke/TIA Start: 12/17/24 18:52 Text: For PCU Patients: NIH and Neuro Check every 4 Status: Active hours, PRN and with change in RN caregiver. Freq: Q12 Protocol: Activity Type Activity Date Activity User E-sign Co-sign Detail Recorded Client Recorded Date Recorded By Document 12/22/24 08:15 DS [id number] 12/22/24 08:19 DS 12/22/24 08:15 NIH Stroke Scale [NIHSS] A score of 0 is normal or asymptomatic . Total possible score is 42. Inpatient: RN or Physician to activate a stroke alert for onset of new stroke symptoms or with NIHSS increase >/= 3 points. Following change in neurological status, NIHSS will be performed per physician order or more frequently PRN. -1a. Level of Consciousness 0 - Alert; keenly responsive -1b. LOC Questions 2 - Answers NEITHER question correctly -1c. LOC Commands 0 - Performs BOTH tasks correctly -2. Best Gaze 0 - Normal -3. Visual 0 - No visual loss -4. Facial Palsy 1 - Minor paralysis ( flattened nasolabial fold , asymmetry on smiling) -5a. Left Arm 0 - No drift; arm holds 90 ( or 45) degrees for full 10 seconds -5b. Right Arm 2 - Some effort against gravity; -6a. Left Leg 0 - No drift; leg holds 30- degree position for full 5 seconds -6b. Right Leg 2 - Some effort against gravity; -7. Limb Ataxia 0 - Absent -8. Sensory 0 - Normal; no sensory loss -9. Best Language 3 - Mute, global aphasia; -10. Dysarthria 2 - Severe dysarthria; -11. Extinction and Inattention 0 - No abnormality -Total 12 Query Text:A score of 0 is normal or asymptomatic. Total possible score is 42 . ED: Notify Physician for NIHSS increase by > / = 3 points. Inpatient: RN or Physician to activate a stroke alert for NIHSS increase of > / = 3 points. Coma Scale [Assess] -Eye Opening Spontaneous -Motor Obeys Commands -Verbal Incomprehensibl e [Total] -Coma Scale Total 12 NIHSS 1a. Level of Consciousness: 1 - Not alert; Arousable by minor stimuli to obey, answer & respond 1b. LOC Questions: 2 - Answers NEITHER question correctly 1c. LOC Commands: 2 - Performs NEITHER task correctly 2. Best Gaze: 0 - Normal 3. Visual: 0 - No visual loss 4. Facial Palsy: 0 - Normal symmetrical movements 5a. Left Arm: 2 - Some effort against gravity; 5b. Right Arm: 3 - No effort against gravity; arm falls 6a. Left Le - Some effort against gravity; 6b. Right Le - No effort against gravity; leg falls to bed immediately 7. Limb Ataxia: 0 - Absent 8. Sensory: 0 - Normal; no sensory loss 9. Best Language: 2 - Severe aphasia; 10. Dysarthria: 2 - Severe dysarthria; Total: 19
[2024-12-22] MEDS: levETIRAcetam IV 1,000 MG/100 ML BAG 400 MG IV ×2 (09:31→21:45)
[2024-12-22] MEDS: NORMAL SALINE 0.9% IV (10:15)
[2024-12-22] MEDS: [UNRECOGNIZED DRUG - OTHER] IV (10:15)
--- NOTE | 2024-12-22 15:34 | PCM.HOSP.N ---
Hospitalist Note Extensive conversation with POA's at the bedside which included his ex- and daughter. They were not in agreement on CODE STATUS at this time. His ex- wants him to remain full code. His daughter is changing more towards DNR CCA okay for short-term intubation. His daughter is going to talk more to patient's ex- about CODE STATUS however at this time we will keep his CODE STATUS as full code. They were completely updated on the plan for PEG tube tomorrow with initiation of anticoagulation following PEG tube placement and placement SNF at the time of discharge. We discussed overall prognosis with regards to his neurological status and they voiced understanding.
[2024-12-23] VITALS (27 sets, daily range): BP systolic 112–183; BP diastolic 56–80; PULSE 51–77; RESP 16–25; TEMP 36.2–36.7; O2SAT 87–98; BMI 24.5
[2024-12-23 05:04] LABS: Hematocrit 36.3 % (40-54); Hemoglobin 11.2 g/dL (13.0-16.5); Mean Corp Hgb Conc 30.9 g/dL (32-36); Mean Corpuscular Volume 89.9 fL (80-94); Mean Platelet Vol. 10.0 fl (6.2-12.0); Platelet Count 376 K/mm3 (150-450); RBC Distribution Width CV 14.1 % (11.6-14.6); RBC Distribution Width SD 46.0 fl (35.1-43.9); Red Blood Count 4.04 M/mm3 (4.6-6.2); White Blood Count 7.5 K/mm3 (4.4-11.0)
[2024-12-23 05:28] LABS: Anion Gap 11 (5-15); BUN 17 mg/dL (4-19); BUN/Creat Ratio 16.4 RATIO (10-20); Calcium,Total 8.4 mg/dL (7.6-11.0); Carbon Dioxide 24.1 mmol/L (21.0-32.0); Chloride 104 mmol/L (98-108); Estimated Creatinine Clearance 60.54 ml/min (50-250); Glucose 85 mg/dL (70-99); Potassium 3.8 mmol/L (3.3-5.1)
[2024-12-23] MEDS: Lactated Ringers 1,000 ML 75 ML IV (06:09)
[2024-12-23] MEDS: 0.9% Saline Lock 10 ML Syringe IV ×6 (06:10→23:14)
--- NOTE | 2024-12-23 07:19 | PCM.PN.HOSP ---
Reason for Visit Reason for Visit: Diagnoses Cerebral infarction, unspecified (12/18/24) Facial weakness (12/18/24) Aphasia (12/18/24) Subjective Subjective The patient is a 74 y/o M w/ PMHx: Former EtOH abuse, PAD s/p peripheral PCI, PAF reporting that he is on chronic Coumadin therapy but verified this was not the case, HTN, HLD, Chronic anemia/Fe deficiency anemia, COPD/Asthma w/ Chronic Hypoxic Respiratory Failure (2L NC), Seizure disorder, CKD stage III unclear subtype or GFR trending, GERD, BPH with obstructive pathology, Anxiety and depression, PJ noncompliant with PAP therapy, Tobacco use, recent discharge 12/16/24 following evaluation and treatment of Acute COPD Exacerbation who re-presents to the [facility] ED on 12/17/24 w/ severe dysarthria and right-sided facial droop with suspected CVA. Patient is extremely aphasic and only intermittently responsive. He is very resistant to following commands. Unable to answer ROS. Per discussion with nursing staff patient with no acute overnight events and stable vital signs otherwise. Objective Data Objective Data Vital Signs: Vital Signs Temp Pulse Resp BP Pulse Ox O2 Del Method O2 Flow Rate 97.3 F L 62 20 H 170/56 H 94 Nasal Cannula 2 12/23/24 06:17 12/23/24 07:15 12/23/24 07:15 12/23/24 06:17 12/23/24 07:15 12/23/24 07:15 12/23/24 07:15 Oxygen Flow Rate (L/min) 2 Oxygen Delivery Method Nasal Cannula Weight: 160 lb 14.999 oz Body Mass Index (BMI) 24.5 Intake & Output: Intake and Output for Last 24 Hours 12/21/24 12/22/24 12/23/24 23:59 23:59 23:59 Intake Total 1625.0 / 1625.0 2326.25 / 2326.25 853.75 / 853.75 Output Total 750 / 1150 2350 / 2650 550 / 550 Balance 875.0 / 475.0 -23.75 / -323.75 303.75 / 303.75 Lab / Micro Data 12/23/24 04:39 12/23/24 04:39 Labs: Laboratory Results - last 24 hr 12/23/24 04:39: WBC 7.5, RBC 4.04 L, Hgb 11.2 L, Hct 36.3 L, MCV 89.9, MCH 27.7, MCHC 30.9 L, RDW Std Deviation 46.0 H, RDW Coeff of Aly 14.1, Plt Count 376, MPV 10.0, Sodium 139, Potassium 3.8, Chloride 104, Carbon Dioxide 24.1, Anion Gap 11, BUN 17, Creatinine 1.02, Estim Creat Clear Calc 60.54, Est GFR (MDRD) Non-Af 77, BUN/Creatinine Ratio 16.4, Glucose 85, Calcium 8.4 Micro: Microbiology 12/19/24 10:00 Stool Enteric Bacteriology - Final 12/18/24 13:51 Stool Clostridioides difficile (PCR) - Final Physical Exam Narrative Physical Examination: General: Awake, appears alert but not answering any orientation questions, extremely aphasic, intermittently irritated, plan for PEG tube placement today. Skin: Normal color, normal turgor, no icterus, no cyanosis except occasional stage ecchymoses, abrasions. HEENT: AT/NC, EOMI, chronic significant right pupil dilation, more pinpoint left pupil left-sided facial droop, mildly dry MM, persistent left facial droop, mild tongue deviation to the right. Lungs: Diminished, greater bases, appropriate effort, no rales, ronchi or wheezing. Heart: Regular rate and rhythm; no gallop, rub audible. Abdomen: Soft, NTTP, ND, hyperactive BS Extremities: No cyanosis, no clubbing, no significant distal edema. Neurological: Awake, appears alert but not answering any orientation questions, extremely aphasic, intermittently irritated, plan for PEG tube placement today, cognitive function certainly decreased from previous baseline during previous admission, cranial nerves difficult to assess given command willingness, at this point as noted evidence of persistent left facial droop, mild tongue deviation to the right, chronic pupillary changes as noted, global aphasia with decreased willingness to follow commands and interact, intermittently irritable, moving all extremities, strength difficult to assess is not following commands. Psychiatric: Affect appears initially mildly flat, occasionally irritable during evaluation, no acute evidence of depressive or anxiety feelings. Assessment & Plan Assessment/Plan (1) Acute CVA (cerebrovascular accident): PLAN: Plan The patient is a 74 y/o M w/ PMHx: Former EtOH abuse, PAD s/p peripheral PCI, PAF reporting that he is on chronic Coumadin therapy but verified this was not the case, HTN, HLD, Chronic anemia/Fe deficiency anemia, COPD/Asthma w/ Chronic Hypoxic Respiratory Failure (2L NC), Seizure disorder, CKD stage III unclear subtype or GFR trending, GERD, BPH with obstructive pathology, Anxiety and depression, PJ noncompliant with PAP therapy, Tobacco use, recent discharge 12/16/24 following evaluation and treatment of Acute COPD Exacerbation who re-presents to the [facility] ED on 12/17/24 w/ severe dysarthria and right-sided facial droop with suspected CVA. #1. Acute severe dysarthria and right-sided facial droop secondary to acute left MCA stroke: Initial ED presentation with CT of the brain with no acute intracranial findings with cerebral atrophy, CTA head and neck with right and left ICA stenosis (right noted 75% stenosis, left noted 50% stenosis), MRI of the brain with focal restricted diffusion left periventricular deep white matter with multiple foci with the largest measuring 1.2 x 0.9 cm with associated increased T2 signal intermediate to decreased T1 signal consistent with subacute infarct, punctate foci restricted diffusion in the left precentral subcortical region with associated increased T2, decreased T1 signal consistent with subacute infarct, extensive abnormal increased T2 and flair signal throughout the deep white matter confluence in the periventricular regions consistent with chronic ischemic change, 3.1 x 1.5 cm arachnoid cyst in the medial left temporal tip, mucosal thickening of the right maxillary sinus. Patient with persistent ongoing global aphasia, right-sided facial droop unfortunately not extremely cooperative, suspected likely cardioembolic source as underlying PAF not chronically anticoagulated secondary to falls, currently on aspirin therapy but per neurology recommendation will very cautiously initiate Eliquis 5 mg p.o. twice daily following PEG placement which was discussed with gastroenterology given high risk however given fall risk was continue to assess risk and benefit, currently at this point we will maintain on baby aspirin but transition over once appropriate, continue statin therapy, unfortunately patient has refused EEG x 3 now therefore deferred at this time, vitamin B12 level normal limit at 774, initially received thiamine 5 mg IV every 8 transition to 250 mg daily x 2-day and now on 100 mg daily following, initial permissive hypertension now on labetalol, hydralazine and clonidine patch in addition to enalapril, plan to transition over to oral regimen per PEG once placed, continue PT/OT//ST/case management consultation for discharge planning, follow-up 12/23/2024 carotid ultrasound with moderate 50 to 69% stenosis of the right extracranial internal carotid and left extracranial internal carotid with patent antegrade vertebrals bilaterally. Patient maintained n.p.o. status as unsafe oral intake, awaiting 12/23/2024 PEG tube placement. Currently also maintained on Keppra 1000 mg twice daily with plan for oral transition back to patient home carbamazepine regimen once PEG tube placed for prophylaxis. Once patient requires PEG tube and [facility] facility placement is pre-CERT obtained will transition as clinically stabilized aside from awaiting PEG and transition to Eliquis at that time. Patient will need follow-up with Vascular Surgery given carotid disease. #2. Recent Acute COPD Exacerbation w/ Chronic Hypoxic and Hypercarbic Respiratory Failure: Recent presentation with exacerbation, currently maintained on Solu-Medrol 30 mg IV daily with initial plan per previous day team with 4 days of 30 mg then transition to 20 mg IV x 4 then 10 mg IV x 4 with stop following however at this point planned PEG tube placement as noted, could certainly consider transition to prednisone taper. Patient is n.p.o. with aspiration precautions. Currently maintained on IV PPI. Will continue ATC DuoNeb therapy as well as as needed albuterol. Continue supplemental oxygen currently 2 L nasal cannula which appears recent baseline. #3. Hypertension: As noted above given n.p.o. status awaiting PEG tube placement, maintained on labetalol, hydralazine, clonidine patch in addition to enalapril, will alter regimen once PEG tube placed. #4. Chronic Kidney Disease Stage II per GFR trending: Admission BUN/creatinine 22/1.10, GFR 70, baseline renal function 1.1-1.2, 12/23/2024 BUN/creatinine 17/1.02, GFR 77, stable, continue to trend. #5. Chronic normocytic anemia/iron deficient anemia: Admission hemoglobin 12.4, MCV 89, baseline hemoglobin noted to vacillate however does range 11-12, 12/23/2024 hemoglobin 0.2, MCV 89.9, stable, continue to trend #6. PAF: Will continue patient home labetalol regimen until PEG tube placed, as noted above we will transition off aspirin therapy to Eliquis following PEG tube placement. #7. Hyperlipidemia: Will continue statin therapy once PEG placed. #8. Anxiety and depression: Once PEG placed reinitiate home sertraline and mirtazapine regimen. #9. BPH with obstructive pathology: Will continue patient on Flomax and finasteride regimen once PEG tube placed, monitor for retention. #10. GERD: Will continue on IV PPI, transition to oral regimen once PEG placed. #11. Seizure disorder: Awaiting PEG tube placement, currently on IV Keppra AED regimen, transition back to carbamazepine oral regimen once PEG placed. #12. Tobacco Abuse: Patient extremely aphasic at this point, encouraged tobacco cessation. #13. PJ: Noncompliant with PAP therapy.. #14. PAD: Currently on rectal aspirin, as noted above plan transition to Eliquis therapy status post PEG placement, continue IV hypertensive and topical hypertensive regimen until PEG tube placed, reinitiate statin therapy once PEG placed. #15. Former alcohol abuse: Encourage continued sobriety. #16. DVT prophylaxis: As noted currently maintained on [place] aspirin therapy, plan initiation of Eliquis therapy following PEG tube placement likely 12/25/2019 5 AM. #17. CODE status: From previous discussions with patient he had reported lacking healthcare power of attorney law clerk and living will but had noted he would want his ex- Giovana be his medical decision-maker at that time if absolutely necessary. Patient and daughter have been working with healthcare team closely and patient is maintained full code at this time. Charges/Coding Visit Charges Inpatient E&M: 86559 Subs Hosp L3 NIHSS NIHSS Nursing Documentation NIHSS Nursing Documentation: NIHSS: Ischemic Stroke/TIA Start: 12/17/24 18:52 Text: For PCU Patients: NIH and Neuro Check every 4 Status: Complete hours, PRN and with change in RN caregiver. Freq: Q12 Protocol: Activity Type Activity Date Activity User E-sign Co-sign Detail Recorded Client Recorded Date Recorded By Document 12/22/24 08:15 DS [id number] 12/22/24 08:19 DS 12/22/24 08:15 NIH Stroke Scale [NIHSS] A score of 0 is normal or asymptomatic . Total possible score is 42. Inpatient: RN or Physician to activate a stroke alert for onset of new stroke symptoms or with NIHSS increase >/= 3 points. Following change in neurological status, NIHSS will be performed per physician order or more frequently PRN. -1a. Level of Consciousness 0 - Alert; keenly responsive -1b. LOC Questions 2 - Answers NEITHER question correctly -1c. LOC Commands 0 - Performs BOTH tasks correctly -2. Best Gaze 0 - Normal -3. Visual 0 - No visual loss -4. Facial Palsy 1 - Minor paralysis ( flattened nasolabial fold , asymmetry on smiling) -5a. Left Arm 0 - No drift; arm holds 90 ( or 45) degrees for full 10 seconds -5b. Right Arm 2 - Some effort against gravity; -6a. Left Leg 0 - No drift; leg holds 30- degree position for full 5 seconds -6b. Right Leg 2 - Some effort against gravity; -7. Limb Ataxia 0 - Absent -8. Sensory 0 - Normal; no sensory loss -9. Best Language 3 - Mute, global aphasia; -10. Dysarthria 2 - Severe dysarthria; -11. Extinction and Inattention 0 - No abnormality -Total 12 Query Text:A score of 0 is normal or asymptomatic. Total possible score is 42 . ED: Notify Physician for NIHSS increase by > / = 3 points. Inpatient: RN or Physician to activate a stroke alert for NIHSS increase of > / = 3 points. Coma Scale [Assess] -Eye Opening Spontaneous -Motor Obeys Commands -Verbal Incomprehensibl e [Total] -Coma Scale Total 12
[2024-12-23] MEDS: Pantoprazole Sodium 40 MG in 0.9% Normal Saline (100mL MB+) 100 ML 300 MG IV (09:00)
[2024-12-23] MEDS: levETIRAcetam IV 1,000 MG/100 ML BAG 400 MG IV ×2 (09:26→21:31)
[2024-12-23] MEDS: [UNRECOGNIZED DRUG - OTHER] IV (10:44)
[2024-12-23] MEDS: NORMAL SALINE 0.9% IV (10:44)
--- NOTE | 2024-12-23 13:10 | CPS ---
EEG ordered to be completed 12/23/24 at 12:00 while POA was in patient room. Went to complete test at 12:00, POA was not present in room. At 13:13, POA is still not present, testing on hold. PCU Nurse and Ordering Physician aware.
--- NOTE | 2024-12-23 13:21 | NURSING ---
Report called to Surgery RN
--- NOTE | 2024-12-23 14:00 | PCM.PRE.AN2 ---
ASA Classification* ASA Classification ASA Classification: 3 Assessment & Plan Anesthesia* Anesthesia Assessment Anesthesia Assessment: Discussed sedation and/or anesthesia options, risks, benefits, and alternatives with patient/parents/legal guardian/POA. Questions invited. The patient/parents/legal guardian/POA seems to understand and agrees to proceed with anesthesia plan. Reviewed the physical assessment, medical history, allergy history and patient home medications list prior to surgery/procedure/anesthetic and documented any changes. Performed airway and anesthesia risk assessments. Anesthesia Type Anesthesia Type: MAC Anesthesia Focused Assessment* Temperature: 97.6 F Pulse Rate: 62 Blood Pressure: 159/73 Respiratory Rate: 19 Pulse Ox: 94 Oxygen Flow Rate (L/min): 2 Airway Assessment Mouth opens: >3 cm Mallampati Score: II Labs Anesthesia Preop lab: CBC WBC 7.5 K/mm3 (4.4-11.0) 12/23/24 04:39 12/23/24 RBC 4.04 M/mm3 (4.6-6.2) L 12/23/24 04:39 12/23/24 Hgb 11.2 g/dL (13.0-16.5) L 12/23/24 04:39 12/23/24 Hct 36.3 % (40-54) L 12/23/24 04:39 12/23/24 Plt Count 376 K/mm3 (150-450) 12/23/24 04:39 12/23/24 CHEMISTRY Potassium 3.8 mmol/L (3.3-5.1) 12/23/24 04:39 12/23/24 Sodium 139 mmol/L (133-145) 12/23/24 04:39 12/23/24 Magnesium 2.0 mg/dL (1.5-2.2) 12/15/24 05:19 12/15/24 Phosphorus 3.3 mg/dL (2.7-4.5) 12/15/24 05:12/15/24 BUN 17 mg/dL (4-19) 12/23/24 04:39 12/23/24 Creatinine 1.02 mg/dL (0.70-1.20) 12/23/24 04:39 12/23/24 Glucose 85 mg/dL (70-99) 12/23/24 04:39 12/23/24 POC Glucose 83 mg/dL (74-106) 02/20/24 17:14 02/20/24 TSH 3.380 uIU/mL (0.300-4.200) 12/17/24 16:00 12/17/24 COAG PT 12.8 SECONDS (11.7-14.9) 12/17/24 16:00 12/17/24 Pre-Assessment Diagnosis/Proposed Procedure Planned Operative Procedure(s): EGD, PEG placement. 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 - content curator: Anesthesia History - content curator Hx Hospitalization Yes 08/08/20 16:59 Any Problems With Anesthesia No 12/23/24 09:15 Cholinesterase deficiency No 12/23/24 09:15 You/Your Family Experience No 12/23/24 09:15 fever (hyperthermia) with Relationship Recent Exposure to Contagious No 12/23/24 09:15 Disease Does patient have nerve No 12/23/24 09:15 stimulator Patient instructed to have device shut off --Does patient have Pacemaker No 12/23/24 09:00 or ICD? When Was Last Pacemaker Check QUESTION #4 FULL TEXT: You/Your Family Experience fever (hyperthermia) with Anesthesia Last Oral Intake Last Oral intake: Last Oral Intake NPO since 00:00 12/23/24 09:00 Meds taken in AM with sips of No 12/23/24 09:00 water? Meds patient instructed to take am of surgery PONV PONV - content curator: PONV - content curator Female HX of Motion Sickness HX of N/V After Surgery Non-Smoker Duration of Surgery greater than 60 minutes Number of Risk Factors PONV Score Height & Weight Height & Weight: Anesthesia: Height & Weight Height 5 ft 8 in 12/23/24 09:50 Weight: 73 kg 12/23/24 09:50 Body Mass Index (BMI) 24.5 12/23/24 09:00 Respiratory Assessment Respiratory Assessment - content curator: Respiratory Tract Infection Hx - content curator Hx Respiratory Tract Infection No 12/23/24 09:15 STOP Sleep Apnea STOP Sleep Apnea - content curator: STOP Sleep Apnea - content curator Hx Hypertension Yes 12/23/24 09:06 Hx Sleep Apnea Yes 12/17/24 20:07 CPAP No 12/17/24 20:07 BIPAP No 12/17/24 20:07 Do you snore loudly (louder than talking or can be heard Do you often feel tired/ fatigued/ sleepy during daytime? Has anyone observed you stop breathing during sleep? STOP Results Positive 12/17/24 20:07 QUESTION #5 FULL TEXT : Do you snore loudly (louder than talking or can be heard through closed doors)? 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 Specify any problems Hx of Preganancy in last 3 Months Nurse Filling Out Transfusion & Questions: Date: Time: Patient unable to answer at Yes 12/17/24 20:07 this time (ie. confused, unrespo /Reproduction History /Reproductive History - content curator: /Reproductive Hx- content curator Hx Now Gestational Age (in weeks): EDC: Hx Hx Para Hx Section SAB No 11/27/21 05:25 Active Medications Active Medications: Current Medications Generic Name Dose Route Start Last Admin Trade Name Freq PRN Reason Stop Dose Admin Acetaminophen 650 mg 12/17/24 18:52 Acetaminophen 325 Mg Tablet PO Q6H PRN PRN Pain 1-10 Or Fever>100.7 Albuterol Sulfate 2.5 mg 12/17/24 19:04 Albuterol 2.5 Mg/3 Ml Vial.Neb. INHALATION Q4H PRN DYSPNEA/WHEEZING/SOB Albuterol/Ipratropium 3 ml 12/17/24 19:30 12/23/24 10:54 Ipratropium/Albuterol Sulfate 3 Ml Ampul.Neb INHALATION 3 ml Q4HWA.RT LEON Administration Aspirin 300 mg 12/18/24 11:00 12/22/24 09:16 Aspirin 300 Mg Suppository RC 300 mg DAILY LEON Administration Atorvastatin Calcium 40 mg 12/17/24 22:00 12/17/24 20:54 Atorvastatin Calcium 40 Mg Tablet PO Not Given QHS LEON Carbamazepine 200 mg 12/17/24 22:00 12/18/24 09:52 Carbamazepine 200 Mg Cpmp.12hr PO Not Given BID LEON Cholecalciferol 50 mcg 12/18/24 10:00 12/18/24 09:52 Cholecalciferol (Vit D3) 25 Mcg Tablet (1,000 Units) PO Not Given DAILY LEON Clonidine HCl 0.2 mg 12/21/24 10:00 12/21/24 10:19 Clonidine Hcl 0.2 Mg Patch TD 0.2 mg Q7D LEON Administration Enalaprilat 1.25 mg 12/22/24 13:03 12/23/24 11:48 Enalaprilat 1.25 Mg/Ml Vial IV 1.25 mg Q6 LEON Administration Protocol Finasteride 5 mg 12/18/24 10:00 12/18/24 09:52 Finasteride 5 Mg Tablet PO Not Given DAILY LEON Gabapentin 100 mg 12/18/24 10:00 12/18/24 09:52 Gabapentin 100 Mg Capsule PO Not Given DAILY LEON Hydralazine HCl 10 mg 12/21/24 08:30 12/23/24 11:54 Hydralazine 20 Mg/Ml Vial IV 10 mg Q6 LEON Administration Protocol Sodium Chloride 250 mls @ 15 mls/hr 12/17/24 19:51 IV .[id number] PRN Saline Flush Sodium Chloride 250 mls @ 15 mls/hr 12/17/24 19:51 IV .[id number] PRN Additional IVPB Infusion Levetiracetam 1,000 mg in 100 mls @ 400 mls/hr 12/17/24 22:00 12/23/24 09:45 IV Infused Q12 LEON Infusion Pantoprazole Sodium 40 mg/ 100 mls @ 300 mls/hr 12/19/24 10:00 12/23/24 09:26 Sodium Chloride IV Infused Q24 LEON Infusion Lactated Ringer's 1,000 mls @ 75 mls/hr 12/18/24 15:30 12/23/24 13:10 IV 0 mls/hr .[id number] LEON Infusion Thiamine HCl 250 mg/ Sodium 52.5 mls @ 200 mls/hr 12/22/24 10:00 12/23/24 11:01 Chloride IV 12/24/24 10:01 Infused DAILY LEON Infusion Thiamine HCl 100 mg/ Sodium 51 mls @ 200 mls/hr 12/25/24 10:00 Chloride IV DAILY LEON Labetalol HCl 20 mg 12/20/24 18:00 12/23/24 12:34 Labetalol 20 Mg/4 Ml Vial IV Not Given Q6 LEON Melatonin 3 mg 12/17/24 18:52 Melatonin 3 Mg Tablet PO QHS PRN PRN INSOMNIA Methylprednisolone Sodium Succinate 30 mg 12/21/24 10:00 12/23/24 10:41 Methylprednisolone Sod Succ 40 Mg/Ml Vial IV 30 mg DAILY LEON Administration Mirtazapine 15 mg 12/17/24 22:00 12/17/24 20:54 Mirtazapine 15 Mg Tablet PO Not Given QHS LEON Ondansetron HCl 4 mg 12/17/24 18:52 Ondansetron 4 Mg/2 Ml Vial IV Q8H PRN PRN NAUSEA/VOMITING Pantoprazole Sodium 40 mg 12/18/24 10:00 12/18/24 09:52 Pantoprazole Sodium 40 Mg Tablet PO Not Given DAILY [facility] Senna/Docusate Sodium 1 tablet 12/17/24 18:52 Senna/Docusate Sodium 1 Tablet PO BID PRN PRN Constipation Sertraline HCl 100 mg 12/18/24 10:00 12/18/24 09:52 Sertraline 100 Mg Tablet PO Not Given DAILY [facility] Sodium Chloride 10 - 40 ml 12/17/24 19:51 12/23/24 13:09 0.9% Saline Lock 10 Ml Syringe IV 10 ml UD PRN Administration SALINE FLUSH Tamsulosin HCl 0.4 mg 12/18/24 22:00 Tamsulosin Hcl 0.4 Mg Capsule PO QHS LEON PFSH Medical History Weakness Debility Failure to thrive Compression fx, lumbar spine Hypertension Falls Hypertension Closed fracture of right superior pubic ramus Multiple falls Compression fracture of thoracic vertebra History of atrial fibrillation Iron deficiency anemia Chronic respiratory failure with hypoxia Osteoporosis Lumbar compression fracture Compression fracture Obstructive sleep apnea Hyperlipidemia Asthma Peripheral arterial occlusive disease Seizure disorder Chronic obstructive pulmonary disease Coronary artery disease Lupus anticoagulant disorder BPH (benign prostatic hyperplasia) Ulcerative colitis Peripheral vascular disease Anxiety COPD (chronic obstructive pulmonary disease) with emphysema Closed fracture of right inferior pubic ramus Acute UTI COPD (chronic obstructive pulmonary disease) UTI (urinary tract infection) Depression Diabetes Kidney stones Chronic pain Pancreatitis On home oxygen therapy Irregular heart beat Atrial fibrillation Stroke/cerebrovascular accident Smoker Falls frequently Seizures Sleep apnea COPD (chronic obstructive pulmonary disease) Asthma High cholesterol Tobacco abuse Home Medications ?Medication ?Instructions ?Recorded ?Last Taken ?Type tamsulosin 0.4 mg capsule 0.4 mg PO QHS bph 01/26/14 03/28/23 History finasteride 5 mg tablet 5 mg PO DAILY prostate 11/14/14 12/13/24 08:58 History atorvastatin 40 mg tablet 40 mg PO QHS Cholesterol 09/23/15 12/12/24 History mirtazapine 15 mg tablet 15 mg PO QHS anti depressant 08/16/19 12/12/24 20:59 History clopidogrel 75 mg tablet 75 mg PO DAILY blood thinner 10/25/19 12/13/24 History losartan 100 mg tablet 100 mg PO DAILY Blood pressure 08/19/21 12/13/24 08:58 History pantoprazole 40 mg tablet,delayed 40 mg PO DAILY GERD 08/19/21 12/13/24 08:00 History release nifedipine 90 mg tablet,extended 90 mg PO DAILY blood pressure 11/25/21 12/13/24 08:59 History release alendronate 70 mg tablet 70 mg PO QWEEK OSTEOPROSIS #1 TAB 11/30/21 12/09/24 Rx metoprolol tartrate 25 mg tablet 25 mg PO DAILY Blood pressure 03/30/23 12/13/24 08:59 History sennosides 8.6 mg-docusate sodium 2 tab PO BID PRN PRN Constipation 04/04/23 Unknown Rx 50 mg tablet (Stool #0 tabs Softener-Stimulant Laxative) albuterol sulfate 90 mcg/actuation 1 puff inhalation Q8H SOB 08/22/23 12/13/24 08:53 History aerosol inhaler carbamazepine 200 mg 200 mg PO Q12H SEIZURES 08/22/23 12/13/24 08:55 History tablet,extended release,12 hr cholecalciferol (vitamin D3) 50 50 mcg PO DAILY SUPPLEMENT 08/22/23 12/13/24 History mcg (2,000 unit) tablet sertraline 100 mg tablet 100 mg PO DAILY DEPRESSION 08/22/23 Unknown History ergocalciferol (vitamin D2) 1,250 1,250 mcg PO Q7D SUPPLEMENT #0 caps 04/10/24 12/13/24 08:58 Rx mcg (50,000 unit) capsule (Vitamin D2) clonidine HCl 0.1 mg tablet 0.1 mg PO TID HTN #0 tabs 09/02/24 Unknown Rx dextromethorphan-guaifenesin ER 60 1 tab PO BID COUGH 7 days #14 tabs 09/02/24 12/13/24 Rx mg-1,200 mg tab,extend release,12hr nicotine 14 mg/24 hr daily 14 mg transdermal DAILY NICOTINE 09/02/24 Unknown Rx transdermal patch 28 days #28 ea prednisone 20 mg tablet 40 mg (2 x 20 mg) PO BREAKFAST 1 09/02/24 Unknown Rx day #2 tabs acetaminophen 500 mg tablet 1,000 mg PO Q8 PRN fever or pain 12/13/24 Unknown History albuterol sulfate 2.5 mg/3 mL 2.5 mg continuous nebulization 12/13/24 12/13/24 History (0.083 %) solution for nebulization DAILY SHORTNESS OF BREATH clonidine 0.2 mg/24 hr weekly 1 patch topical QWEEK BLOOD 12/13/24 Unknown History transdermal patch PRESSURE gabapentin 100 mg capsule 100 mg PO DAILY PAIN 12/13/24 12/13/24 08:58 History nicotine 21 mg/24 hr daily 1 patch transdermal DAILY #14 ea 12/16/24 Unknown Rx transdermal patch (Nicoderm CQ) prednisone 10 mg tablet 10 mg PO DAILY #40 tabs 12/16/24 Unknown Rx Allergy/AdvReac Type Severity Reaction Status Date / Time No Known Allergies Allergy Verified 04/06/24 11:12 Family History Mother Heart disease CVA (cerebral vascular accident) Hypertension Father Heart disease CVA (cerebral vascular accident) Hypertension Surgical History S/P arterial stent History of appendectomy Social History household members: family 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
[2024-12-23] MEDS: Lactated Ringers 1,000 ML 15 ML IV (14:08)
--- NOTE | 2024-12-23 14:45 | PCM.PN.BLA ---
Progress Note Patient with esophageal dysphagia. She has been n.p.o. for PEG tube placement today. He has been off of antiplatelet therapy. Physical Exam Const alert, no apparent distress and average body habitus; Negative for healthy appearing HEENT normocephalic and head/scalp atraumatic HEENT Narrative: Mucous membranes are slightly dry, tongue deviates to the right, dentition is poor, Mallampati is 2, no thrush Resp normal respiratory effort and clear to auscultation bilaterally Resp Narrative: Markedly diminished but clear Auscultation: Negative for crackles, rhonchi or wheezes Cardio regular rate and regular rhythm Cardio Narrative: Irregularly irregular GI normal to inspection, nondistended, normoactive bowel sounds, soft to palpation and non-tender Extremity no clubbing, cyanosis or edema Extremity Narrative: Pedal radial pulses are 2+ Neuro moves all extremities Neuro Narrative: Patient with continued obvious global aphasia, seems to move all extremities symmetrically, left facial droop, right pupil is chronically abnormal, tongue deviates to the right Speech: Negative for speech normal Psych Psych Narrative: Remains intermittently agitated and noncompliant Assessment & Plan Assessment/Plan (1) Acute CVA (cerebrovascular accident): (2) Facial droop: (3) Aphasia: PLAN: Patient will undergo PEG tube placement. Patient and patient family explained alternatives, risk and benefits include not withstanding bleeding, infection, sepsis, perforation, need for surgery . He will have an ASA of 3. Visit Charges Inpatient E&M: 48427 Subs Hosp L2
--- NOTE | 2024-12-23 15:30 | PCM.POST.ANE ---
Anesthesia: Postop Eval I Current Vital Signs Temperature: 98.1 F Pulse Rate: 77 Blood Pressure: 112/58 Respiratory Rate: 24 Pulse Ox: 93 Assessment Airway patent: Yes Spontaneous unlabored respirations: Yes nausea: No Vomiting: No Anesthesia Complication: No Fluid Hydration Crystalloid volume administer (ml): 200 Total IV fluid infused: 200 Progress Note Anesthesia document: Postop Eval 1 completed: Yes
--- NOTE | 2024-12-23 15:51 | POSTOPAN2_ITS ---
Anesthesia Postop Eval I Sum Postop Eval Completion status Anesthesia document: Postop Eval 1 completed: Yes Anesthesia Postop Eval I Summary Anesthesia Postop Eval I Summary: Anesthesia Postop Eval I: Assessment Summary Airway patent Yes 12/23/24 15:30 GRAPHICS SPECIALIST.CSIR Spontaneous unlabored Yes 12/23/24 15:30 GRAPHICS SPECIALIST.CSIR respirations Mental status nausea No 12/23/24 15:30 GRAPHICS SPECIALIST.CSIR Vomiting No 12/23/24 15:30 GRAPHICS SPECIALIST.CSIR Anesthesia Postop Eval I: Fluid Summary Crystalloid volume administer 200 12/23/24 15:30 GRAPHICS SPECIALIST.CSIR (ml) Colloids volume administered ( ml) Blood Product volume administered (ml) Total IV fluid infused 200 12/23/24 15:30 GRAPHICS SPECIALIST.CSIR Anesthesia Postop Eval I: Summary Notes Anesthesia Complication No 12/23/24 15:30 GRAPHICS SPECIALIST.CSIR Anesthesia Complication Comment: Post-operative progress note Anesthesia: Postop Eval II Evaluation Mental status: Awake Pain Level: 0 nausea: No Vomiting: No
--- NOTE | 2024-12-23 15:51 | PCM.POSTANE2 ---
Anesthesia Postop Eval I Sum Postop Eval Completion status Anesthesia document: Postop Eval 1 completed: Yes Anesthesia Postop Eval I Summary Anesthesia Postop Eval I Summary: Anesthesia Postop Eval I: Assessment Summary Airway patent Yes 12/23/24 15:30 BUSINESS DEVELOPMENT CONSULTANT.CSIR Spontaneous unlabored Yes 12/23/24 15:30 BUSINESS DEVELOPMENT CONSULTANT.CSIR respirations Mental status nausea No 12/23/24 15:30 BUSINESS DEVELOPMENT CONSULTANT.CSIR Vomiting No 12/23/24 15:30 BUSINESS DEVELOPMENT CONSULTANT.CSIR Anesthesia Postop Eval I: Fluid Summary Crystalloid volume administer 200 12/23/24 15:30 BUSINESS DEVELOPMENT CONSULTANT.CSIR (ml) Colloids volume administered ( ml) Blood Product volume administered (ml) Total IV fluid infused 200 12/23/24 15:30 BUSINESS DEVELOPMENT CONSULTANT.CSIR Anesthesia Postop Eval I: Summary Notes Anesthesia Complication No 12/23/24 15:30 BUSINESS DEVELOPMENT CONSULTANT.CSIR Anesthesia Complication Comment: Post-operative progress note Anesthesia: Postop Eval II Evaluation Mental status: Awake Pain Level: 0 nausea: No Vomiting: No
--- NOTE | 2024-12-23 17:00 | OP.CCLET_ITS ---
12/23/2024 Daija Douglas [id number] [place] [address] Re : Upper GI endoscopy procedure for Miles Cantrellel Dear Dr. Douglas This procedure was performed on Monday, December 23, 2024. My impressions and recommendations are as follows: Impressions : - Abnormal esophageal motility. - Erythematous mucosa in the gastric body. - No gross lesions in the entire examined duodenum. - An endoscopically removable PEG placement was successfully completed. - No specimens collected. Recommendations : - Return patient to hospital new for ongoing care. - Resume previous diet. - Continue present medications. My findings are described in the full procedure note, which is enclosed. If I can be of further assistance, please feel free to contact me at . Sincerely, Paulino Henderson, 12/23/2024 4:59:56 PM This report has been signed electronically.
--- NOTE | 2024-12-23 17:00 | OP.EGD_ITS ---
Patient Name: Miles Sifuentes Procedure Date: 12/23/2024 2:53 PM Date of : 1950 Age: 74 Procedure: Upper GI endoscopy Indications: Dysphagia Providers: Paulino Henderson DO Medicines: Monitored Anesthesia Care Patient Profile: This is a 74 year old male. Refer to note in patient chart for documentation of history and physical. Patient has symptoms of dysphagia with both liquids and solids. Complications: No immediate complications. Procedure: Pre-Anesthesia Assessment: - Prior to the procedure, a History and Physical was performed, and patient medications and allergies were reviewed. The patient is competent. The risks and benefits of the procedure and the sedation options and risks were discussed with the patient. All questions were answered and informed consent was obtained. Patient identification and proposed procedure were verified by the physician. Respiratory Examination: clear to auscultation. CV Examination: normal. Prophylactic Antibiotics: The patient requires prophylactic antibiotics for planned PEG placement. The patient received antibiotic therapy today, before the procedure started. Prior Anticoagulants: The patient has taken no anticoagulant or antiplatelet agents. ASA Grade Assessment: III - A patient with severe systemic disease. After reviewing the risks and benefits, the patient was deemed in satisfactory condition to undergo the procedure. The anesthesia plan was to use monitored anesthesia care (MAC). Immediately prior to administration of medications, the patient was re-assessed for adequacy to receive sedatives. The heart rate, respiratory rate, oxygen saturations, blood pressure, adequacy of pulmonary ventilation, and response to care were monitored throughout the procedure. The physical status of the patient was re-assessed after the procedure. After obtaining informed consent, the endoscope was passed under direct vision. Throughout the procedure, the patient's blood pressure, pulse, and oxygen saturations were monitored continuously. The Endoscope was introduced through the mouth, and advanced to the second part of duodenum. The upper GI endoscopy was accomplished without difficulty. The patient tolerated the procedure well. Scope In: 3:07:52 PM Scope Out: 3:19:44 PM Total Procedure Duration Time 0 hours 11 minutes 52 seconds Findings: Abnormal motility was noted in the esophagus. The cricopharyngeus was abnormal. There are extra peristaltic waves in the esophageal body. The distal esophagus/lower esophageal sphincter is spastic, but gives up passage to the endoscope. Tertiary peristaltic waves are noted. Patchy mildly erythematous mucosa without bleeding was found in the gastric body. The patient was placed in the supine position for PEG placement. The stomach was insufflated to appose gastric and abdominal sandoval. A site was located in the body of the stomach with transillumination for placement. The abdominal wall was marked and prepped in a sterile manner. The area was anesthetized with 1 mL of 0.5% lidocaine. The trocar needle was introduced through the abdominal wall and into the stomach under direct endoscopic view. A snare was introduced through the endoscope and opened in the gastric lumen. The guide wire was passed through the trocar and into the open snare. The snare was closed around the guide wire. The endoscope and snare were removed, pulling the wire out through the mouth. A skin incision was made at the site of needle insertion. The endoscopically removable 20 Fr EndoVive Safety gastrostomy tube was lubricated. The G-tube was tied to the guide wire and pulled through the mouth and into the stomach. The trocar needle was removed, and the gastrostomy tube was pulled out from the stomach through the skin. The external bumper was attached to the gastrostomy tube, and the tube was cut to remove the guide wire. The final position of the gastrostomy tube was confirmed by relook endoscopy, and skin marking noted to be 4 cm at the external bumper. The final tension and compression of the abdominal wall by the PEG tube and external bumper were checked and revealed that the bumper was moderately tight and mildly deforming the skin. The feeding tube was capped, and the tube site cleaned and dressed. No gross lesions were noted in the entire examined duodenum. Impression: - Abnormal esophageal motility. - Erythematous mucosa in the gastric body. - No gross lesions in the entire examined duodenum. - An endoscopically removable PEG placement was successfully completed. - No specimens collected. Recommendation: - Return patient to hospital new for ongoing care. - Resume previous diet. - Continue present medications. Procedure Code(s): --- Professional --- 01800, Esophagogastroduodenoscopy, flexible, transoral; with directed placement of percutaneous gastrostomy tube CPT copyright 2021 [employer]. All rights reserved. The codes documented in this report are preliminary and upon washcloth folder review may be revised to meet current compliance requirements. Paulino Henderson DO 12/23/2024 4:59:56 PM This report has been signed electronically. Number of Addenda: 0 Note Initiated On: 12/23/2024 2:53 PM
[2024-12-24] VITALS (20 sets, daily range): BP systolic 140–252; BP diastolic 56–89; PULSE 51–77; RESP 18–20; TEMP 36.3–36.4; O2SAT 93–98; BMI 24.5
[2024-12-24] MEDS: Lactated Ringers 1,000 ML 75 ML IV (01:08)
[2024-12-24 05:45] LABS: Hematocrit 37.0 % (40-54); Hemoglobin 11.5 g/dL (13.0-16.5); Immature Granulocytes Count 0.040 X10^3/uL (0.0-0.0); Mean Corp Hgb Conc 31.1 g/dL (32-36); Mean Corpuscular Volume 89.2 fL (80-94); Mean Platelet Vol. 9.7 fl (6.2-12.0); NRBC Flagged by Analyzer 0 % (0-5); Platelet Count 380 K/mm3 (150-450); RBC Distribution Width CV 14.6 % (11.6-14.6); RBC Distribution Width SD 46.6 fl (35.1-43.9); Red Blood Count 4.15 M/mm3 (4.6-6.2); White Blood Count 8.5 K/mm3 (4.4-11.0)
[2024-12-24 06:14] LABS: AST(SGOT) 23 U/L (<=37); Alanine Aminotransfer ALT/SGPT 28 U/L (<=46); Albumin, Serum 3.8 g/dL (3.4-4.8); Alkaline Phosphatase 64 U/L (40-129); Anion Gap 11 (5-15); BUN 17 mg/dL (4-19); BUN/Creat Ratio 16.9 RATIO (10-20); Calcium,Total 8.4 mg/dL (7.6-11.0); Carbon Dioxide 23.1 mmol/L (21.0-32.0); Chloride 106 mmol/L (98-108); Estimated Creatinine Clearance 63.01 ml/min (50-250); Globulin 2.2 g/dL (2.2-4.2); Glucose 92 mg/dL (70-99); Potassium 3.9 mmol/L (3.3-5.1)
--- NOTE | 2024-12-24 07:06 | PCM.PN.HOSP ---
Reason for Visit Reason for Visit: Diagnoses Cerebral infarction, unspecified (12/18/24) Facial weakness (12/18/24) Aphasia (12/18/24) Subjective Subjective Patient with no acute events overnight per nursing staff. Patient remains significantly aphasic. No issues overnight status post PEG tube placement with tube feeds initiated today per discussion with nutrition. Also discussed with nursing staff and all medications as able were transitioned over to PEG with adjustments as needed. Discussed with case management/social work and still awaiting precertification for transition to skilled facility but patient is medically appropriate. Patient is unable to answer any ROS questions. Objective Data Objective Data Vital Signs: Vital Signs Temp Pulse Resp BP Pulse Ox O2 Del Method O2 Flow Rate 97.5 F L 77 20 H 167/61 H 93 Nasal Cannula 2 12/24/24 05:00 12/24/24 05:32 12/24/24 05:00 12/24/24 05:32 12/24/24 05:00 12/24/24 05:00 12/24/24 05:00 Oxygen Flow Rate (L/min) 2 Oxygen Delivery Method Nasal Cannula Weight: 160 lb 14.999 oz Body Mass Index (BMI) 24.5 Intake & Output: Intake and Output for Last 24 Hours 12/22/24 12/23/24 12/24/24 23:59 23:59 23:59 Intake Total 2326.25 / 2326.25 2064.00 / 2064.00 178.75 / 178.75 Output Total 2350 / 2650 878 / 878 500 / 500 Balance -23.75 / -323.75 1186.00 / 1186.00 -321.25 / -321.25 Lab / Micro Data 12/24/24 05:28 12/24/24 05:28 Labs: Laboratory Results - last 24 hr 12/24/24 05:28: WBC 8.5, RBC 4.15 L, Hgb 11.5 L, Hct 37.0 L, MCV 89.2, MCH 27.7, MCHC 31.1 L, RDW Std Deviation 46.6 H, RDW Coeff of Aly 14.6, Plt Count 380, MPV 9.7, Immature Gran % (Auto) 0.500, Neut % (Auto) 82.4 H, Lymph % (Auto) 8.5 L, [place] % (Auto) 7.7, Eos % (Auto) 0.4, Baso % (Auto) 0.5, Absolute Neuts (auto) 7.0, Absolute Lymphs (auto) 0.72 L, Nucleated RBC % 0, Sodium 140, Potassium 3.9, Chloride 106, Carbon Dioxide 23.1, Anion Gap 11, BUN 17, Creatinine 0.98, Estim Creat Clear Calc 63.01, Est GFR (MDRD) Non-Af 81, BUN/Creatinine Ratio 16.9, Glucose 92, Calcium 8.4, Total Bilirubin 0.25, AST 23, ALT 28, Alkaline Phosphatase 64, Total Protein 6.0, Albumin 3.8, Globulin 2.2, Albumin/Globulin Ratio 1.8 Micro: Microbiology 12/19/24 10:00 Stool Enteric Bacteriology - Final 12/18/24 13:51 Stool Clostridioides difficile (PCR) - Final Radiography Diagnostic Testing: Radiology Impression Carotid Duplex 12/20/24 11:54 Interpretation Summary Moderate (50-69%) stenosis right extracranial internal carotid. Moderate (50-69%) stenosis left extracranial internal carotid. Patent and antegrade vertebrals bilaterally. Ordering Physician: Lisha Talamantes Referring Physician: Daija Douglas Performed By: Nohemi Juárez RVT Physical Exam Narrative Physical Examination: General: Awake, appears alert but not answering any orientation questions, extremely aphasic, seated upright in the PCU bed today. Skin: Normal color, normal turgor, no icterus, no cyanosis except occasional stage ecchymoses, abrasions. HEENT: AT/NC, EOMI, chronic significant right pupil dilation, more pinpoint left pupil left-sided facial droop, mildly dry MM, persistent left facial droop, mild tongue deviation to the right. Lungs: Diminished, greater bases, appropriate effort, no rales, ronchi or wheezing. Heart: Regular rate and rhythm; no gallop, rub audible. Abdomen: Soft, NTTP, ND, mildly hyperactive BS, status post PEG tube placement. Extremities: No cyanosis, no clubbing, no significant distal edema. Neurological: Awake, appears alert but not answering any orientation questions, extremely aphasic, cognitive function certainly decreased from previous baseline during previous admission, cranial nerves difficult to assess given command willingness, at this point as noted evidence of persistent left facial droop, mild tongue deviation to the right, chronic pupillary changes as noted, global aphasia, intermittently moving extremities been ongoing any commands, strength difficult to assess is not following commands. Psychiatric: Affect appears currently very flat, no acute evidence of depressive or anxiety feelings. Assessment & Plan Assessment/Plan (1) Acute CVA (cerebrovascular accident): PLAN: Plan The patient is a 74 y/o M w/ PMHx: Former EtOH abuse, PAD s/p peripheral PCI, PAF reporting that he is on chronic Coumadin therapy but verified this was not the case, HTN, HLD, Chronic anemia/Fe deficiency anemia, COPD/Asthma w/ Chronic Hypoxic Respiratory Failure (2L NC), Seizure disorder, CKD stage III unclear subtype or GFR trending, GERD, BPH with obstructive pathology, Anxiety and depression, PJ noncompliant with PAP therapy, Tobacco use, recent discharge 12/16/24 following evaluation and treatment of Acute COPD Exacerbation who re-presents to the [facility] ED on 12/17/24 w/ severe dysarthria and right-sided facial droop with suspected CVA. #1. Acute severe dysarthria and right-sided facial droop secondary to acute left MCA stroke: Initial ED presentation with CT of the brain with no acute intracranial findings with cerebral atrophy, CTA head and neck with right and left ICA stenosis (right noted 75% stenosis, left noted 50% stenosis), MRI of the brain with focal restricted diffusion left periventricular deep white matter with multiple foci with the largest measuring 1.2 x 0.9 cm with associated increased T2 signal intermediate to decreased T1 signal consistent with subacute infarct, punctate foci restricted diffusion in the left precentral subcortical region with associated increased T2, decreased T1 signal consistent with subacute infarct, extensive abnormal increased T2 and flair signal throughout the deep white matter confluence in the periventricular regions consistent with chronic ischemic change, 3.1 x 1.5 cm arachnoid cyst in the medial left temporal tip, mucosal thickening of the right maxillary sinus. Patient with persistent ongoing global aphasia, right-sided facial droop unfortunately not extremely cooperative, suspected likely cardioembolic source as underlying PAF not chronically anticoagulated secondary to falls, currently on aspirin therapy but per neurology recommendation will very cautiously initiate Eliquis 5 mg p.o. twice daily following PEG placement which was discussed with gastroenterology given high risk however given fall risk was continue to assess risk and benefit. 12/23/2024 carotid ultrasound with moderate 50 to 69% stenosis of the right extracranial internal carotid and left extracranial internal carotid with patent antegrade vertebrals bilaterally. Refused EEG x 3. Vitamin B12 level normal limit at 774, initially received thiamine IV, transitioned to PEG version 12/24/24. 12/23/24 s/p PEG placement thus will transition from MO ASA->eliquis, d/c IV keppra and resume liquid carbamazepine,transition to HTN regimen per PEG, add back statin per PEG. Awaiting senior care facility placement pre-CERT for transition as clinically stabilized s/p PEG with transition of medications as noted. Patient will need follow-up with Vascular Surgery given carotid disease. #2. Recent Acute COPD Exacerbation w/ Chronic Hypoxic and Hypercarbic Respiratory Failure: Recent presentation with exacerbation, currently maintained on Solu-Medrol 30 mg IV daily, 12/24/24 transitioned to prednisone 40 mg via PEG w/ planned taper at discharge. 12/24/24 change from IV PPI to PEG PPI version. Will continue ATC DuoNeb therapy as well as as needed albuterol. Continue supplemental oxygen currently 2 L nasal cannula which appears recent baseline. #3. Hypertension: 12/24/24 will transition from IV labetalol, hydralazine, enalapril, clonidine patch given s/p PEG to metoprolol, losartan, nifedipine from XL to short acting regimen and continued clonidine patch with continued close monitoring for adjustments. #4. Chronic Kidney Disease Stage II per GFR trending: Admission BUN/creatinine 22/1.10, GFR 70, baseline renal function 1.1-1.2, 12/24/2024 BUN/creatinine 17/0.98, GFR 81, stable, continue to trend. #5. Chronic normocytic anemia/iron deficient anemia: Admission hemoglobin 12.4, MCV 89, baseline hemoglobin noted to vacillate however does range 11-12, 12/24/2024 hemoglobin 11.5, MCV 89.2, stable, continue to trend #6. PAF: Will continue patient home labetalol regimen until PEG tube placed, as noted above we will transition off aspirin therapy to Eliquis following PEG tube placement. #7. Hyperlipidemia: 12/24/24 restart statin via PEG. #8. Anxiety and depression: 12/24/24 restart sertraline and mirtazapine regimen via PEG. #9. BPH with obstructive pathology: 12/24/24 restart finasteride via PEG. Unable to use flomax with PEG. #10. GERD: 12/24/24 transition to PPI per PEG also. #11. Seizure disorder: 12/24/24 to liquid carbamazepine with dose now, d/c IV Keppra. #12. Tobacco Abuse: Patient extremely aphasic at this point, encouraged tobacco cessation. #13. PJ: Noncompliant with PAP therapy.. #14. PAD: 12/24/24 will transition from rectal aspirin to Eliquis therapy status post PEG placement, transition from also IV hypertensive and topical hypertensive regimen to oral regimen, restart statin. #15. Former alcohol abuse: Encourage continued sobriety. #16. DVT prophylaxis: 12/24/24 start Eliquis, s/p PEG 12/23/24. #17. CODE status: From previous discussions with patient he had reported lacking healthcare power of attorney at law and living will but had noted he would want his ex- Giovana be his medical decision-maker at that time if absolutely necessary. Patient and daughter have been working with healthcare team closely and patient is maintained full code at this time. Charges/Coding Visit Charges Inpatient E&M: 12341 Subs Hosp L3 NIHSS NIHSS Nursing Documentation NIHSS Nursing Documentation: NIHSS: Ischemic Stroke/TIA Start: 12/17/24 18:52 Text: For PCU Patients: NIH and Neuro Check every 4 Status: Complete hours, PRN and with change in RN caregiver. Freq: Q12 Protocol: Activity Type Activity Date Activity User E-sign Co-sign Detail Recorded Client Recorded Date Recorded By Document 12/22/24 08:15 DS [id number] 12/22/24 08:19 DS 12/22/24 08:15 NIH Stroke Scale [NIHSS] A score of 0 is normal or asymptomatic . Total possible score is 42. Inpatient: RN or Physician to activate a stroke alert for onset of new stroke symptoms or with NIHSS increase >/= 3 points. Following change in neurological status, NIHSS will be performed per physician order or more frequently PRN. -1a. Level of Consciousness 0 - Alert; keenly responsive -1b. LOC Questions 2 - Answers NEITHER question correctly -1c. LOC Commands 0 - Performs BOTH tasks correctly -2. Best Gaze 0 - Normal -3. Visual 0 - No visual loss -4. Facial Palsy 1 - Minor paralysis ( flattened nasolabial fold , asymmetry on smiling) -5a. Left Arm 0 - No drift; arm holds 90 ( or 45) degrees for full 10 seconds -5b. Right Arm 2 - Some effort against gravity; -6a. Left Leg 0 - No drift; leg holds 30- degree position for full 5 seconds -6b. Right Leg 2 - Some effort against gravity; -7. Limb Ataxia 0 - Absent -8. Sensory 0 - Normal; no sensory loss -9. Best Language 3 - Mute, global aphasia; -10. Dysarthria 2 - Severe dysarthria; -11. Extinction and Inattention 0 - No abnormality -Total 12 Query Text:A score of 0 is normal or asymptomatic. Total possible score is 42 . ED: Notify Physician for NIHSS increase by > / = 3 points. Inpatient: RN or Physician to activate a stroke alert for NIHSS increase of > / = 3 points. Coma Scale [Assess] -Eye Opening Spontaneous -Motor Obeys Commands -Verbal Incomprehensibl e [Total] -Coma Scale Total 12
[2024-12-24] MEDS: Jevity 1.5 1,000 ML 10 ML GT (08:40)
[2024-12-24] MEDS: APIXABAN 5 MG TABLET GT ×2 (11:01→23:13)
[2024-12-24] MEDS: carBAMazepine 200 MG/10 ML UDC (WCH) GT ×3 (11:02→23:11)
--- NOTE | 2024-12-24 14:51 | STROKE.PNOTE ---
Objective Data Objective Data Vital Signs: Vital Signs Temp Pulse Resp BP Pulse Ox O2 Del Method O2 Flow Rate 97.6 F L 55 L 18 168/71 H 97 Nasal Cannula 2 12/24/24 11:00 12/24/24 13:00 12/24/24 11:00 12/24/24 13:00 12/24/24 11:00 12/24/24 11:00 12/24/24 11:00 Oxygen Flow Rate (L/min) 2 Oxygen Delivery Method Nasal Cannula Weight: 73 kg Body Mass Index (BMI) 24.5 Intake & Output: Intake and Output for Last 24 Hours 12/22/24 12/23/24 12/24/24 23:59 23:59 23:59 Intake Total 2326.25 / 2326.25 2064.00 / 2064.00 767.50 / 767.50 Output Total 2350 / 2650 878 / 878 500 / 500 Balance -23.75 / -323.75 1186.00 / 1186.00 267.50 / 267.50 Lab / Micro Data 12/24/24 05:28 12/24/24 05:28 Labs: Laboratory Results - last 24 hr 12/24/24 05:28: WBC 8.5, RBC 4.15 L, Hgb 11.5 L, Hct 37.0 L, MCV 89.2, MCH 27.7, MCHC 31.1 L, RDW Std Deviation 46.6 H, RDW Coeff of Aly 14.6, Plt Count 380, MPV 9.7, Immature Gran % (Auto) 0.500, Neut % (Auto) 82.4 H, Lymph % (Auto) 8.5 L, [place] % (Auto) 7.7, Eos % (Auto) 0.4, Baso % (Auto) 0.5, Absolute Neuts (auto) 7.0, Absolute Lymphs (auto) 0.72 L, Nucleated RBC % 0, Sodium 140, Potassium 3.9, Chloride 106, Carbon Dioxide 23.1, Anion Gap 11, BUN 17, Creatinine 0.98, Estim Creat Clear Calc 63.01, Est GFR (MDRD) Non-Af 81, BUN/Creatinine Ratio 16.9, Glucose 92, Calcium 8.4, Total Bilirubin 0.25, AST 23, ALT 28, Alkaline Phosphatase 64, Total Protein 6.0, Albumin 3.8, Globulin 2.2, Albumin/Globulin Ratio 1.8 Micro: Microbiology 12/19/24 10:00 Stool Enteric Bacteriology - Final 12/18/24 13:51 Stool Clostridioides difficile (PCR) - Final Physical Exam Neuro Neuro Narrative: Neurological examination: General: The patient appears sleepy, poor attention, unable to cooperate for most of exam. Mental Status: ?The patient?s mental status was decreased, garbled speech not intelligible, does not follow most commands. ?Cranial nerves: ?No visual complaints, and extra-ocular motion was intact. Eyes open, Face symmetric. ?There was severe dysarthria. Motor: Uncooperative, but appears anti-gravity in left arm. Sensation: Deferred. ?Coordination: ??There was no dysmetria. Gait: ?deferred Subject: Neurology Subjective PEG yesterday. Eliquis started today. 168. Patient can move the left arm when he wants to, but does not to command. EEG Results Procedure Details EEG Procedure Details: Assessment and Plan: Stroke Assessment/Plan PEDRO PABLO SIERRA is a 74 M smoker with a history of atrial fibrillation (not on AC, coumadin stopped since Mar), HTN, COPD exacerbation (recent hospitalization for respiratory failure), HTN, HL, PVD, Seizure disorder on keppra, PVD, and CD who presented to [facility] ED on 12/17/2024 with dysarthria and right-sided facial droop (LKN noon). Initial NIHSS [address] brain negative. CTA head neck shows R ICA 75% and left ICA 50% stenosis. MRI brain DWI + small acute left MCA infarct. LDL 63, HgbA1c 5.9. TTE EF 55%. CUS 50-69% bilaterally. PEG placed 12/23/24. Eliquis started today. Unable to do EEG x3 bc patient does not cooperate- swats the injection molding process technician away. Neurological examination limited by decreased mental status, but grossly shows aphasia and right hemiparesis. ASSESSMENT/PLAN: Acute left MCA ischemic stroke, PSD # 7. Stroke mechanism is like cardioembolism due to Afib. 1) Stroke work-up completed. 2) Continue eliquis for Afib stroke prevention. 3) Continue vascular risk factor modification. On lipitor 40. 4) Continue AEDs for seizure disorder 7) PT/OT consults- SNF placement. Follow-up in outpatient neurology clinic. Will sign off, please call us back with any stroek related questions. Primary team messaged recs on backline. Maya Talamantes MD NIHSS NIHSS Nursing Documentation NIHSS Nursing Documentation: NIHSS: Ischemic Stroke/TIA Start: 12/17/24 18:52 Text: For PCU Patients: NIH and Neuro Check every 4 Status: Complete hours, PRN and with change in RN caregiver. Freq: Q12 Protocol: Activity Type Activity Date Activity User E-sign Co-sign Detail Recorded Client Recorded Date Recorded By Document 12/22/24 08:15 DS [id number] 12/22/24 08:19 DS 12/22/24 08:15 NIH Stroke Scale [NIHSS] A score of 0 is normal or asymptomatic . Total possible score is 42. Inpatient: RN or Physician to activate a stroke alert for onset of new stroke symptoms or with NIHSS increase >/= 3 points. Following change in neurological status, NIHSS will be performed per physician order or more frequently PRN. -1a. Level of Consciousness 0 - Alert; keenly responsive -1b. LOC Questions 2 - Answers NEITHER question correctly -1c. LOC Commands 0 - Performs BOTH tasks correctly -2. Best Gaze 0 - Normal -3. Visual 0 - No visual loss -4. Facial Palsy 1 - Minor paralysis ( flattened nasolabial fold , asymmetry on smiling) -5a. Left Arm 0 - No drift; arm holds 90 ( or 45) degrees for full 10 seconds -5b. Right Arm 2 - Some effort against gravity; -6a. Left Leg 0 - No drift; leg holds 30- degree position for full 5 seconds -6b. Right Leg 2 - Some effort against gravity; -7. Limb Ataxia 0 - Absent -8. Sensory 0 - Normal; no sensory loss -9. Best Language 3 - Mute, global aphasia; -10. Dysarthria 2 - Severe dysarthria; -11. Extinction and Inattention 0 - No abnormality -Total 12 Query Text:A score of 0 is normal or asymptomatic. Total possible score is 42 . ED: Notify Physician for NIHSS increase by > / = 3 points. Inpatient: RN or Physician to activate a stroke alert for NIHSS increase of > / = 3 points. Coma Scale [Assess] -Eye Opening Spontaneous -Motor Obeys Commands -Verbal Incomprehensibl e [Total] -Coma Scale Total 12 NIHSS 1a. Level of Consciousness: 1 - Not alert; Arousable by minor stimuli to obey, answer & respond 1b. LOC Questions: 2 - Answers NEITHER question correctly 1c. LOC Commands: 2 - Performs NEITHER task correctly 2. Best Gaze: 0 - Normal 3. Visual: 0 - No visual loss 4. Facial Palsy: 0 - Normal symmetrical movements 5a. Left Arm: 2 - Some effort against gravity; 5b. Right Arm: 4- No movement 6a. Left Le - Some effort against gravity; 6b. Right Le - No movement 7. Limb Ataxia: 0 - Absent 8. Sensory: 0 - Normal; no sensory loss 9. Best Language: 3 - Mute, global aphasia; 10. Dysarthria: 2 - Severe dysarthria; 11. Extinction and Inattention: 0 - No abnormality Total: 22
--- NOTE | 2024-12-24 17:08 | TREXTCAR_ITS ---
Diet Diet Order/Speech Therapy: INPATIENT Hospital Diet / Speech Therapy Order(s) 12/24/24 00:01 Diet: Nothing Per Oral Diet Comments: STRICT/hold all p.o. meds for now Routine Orders/Code Status Enema Frequency: Daily PRN Routine Lab Work: - (Repeat CBC, BMP in 1 week.) Code Status: Full Code DC O2, CPAP, BIPAP needs Home O2 Discharge instructions: Yes Type of respiratory needs?: Oxygen Oxygen frequency: Continuous Continuous oxygen liters per minute: 2 Wound(s) abdomen: Wound Type: Surgical Incision Therapies Weight Bearing: Full weight bearing Physical Therapy: Eval and Treat Occupational Therapy: Eval and Treat Speech Therapy: Eval and Treat Problem/Diagnosis (1) Acute CVA (cerebrovascular accident): Status: Acute Code(s): I63.9 - Cerebral infarction, unspecified Plan The patient is a 74 y/o M w/ PMHx: Former EtOH abuse, PAD s/p peripheral PCI, PAF reporting that he is on chronic Coumadin therapy but verified this was not the case, HTN, HLD, Chronic anemia/Fe deficiency anemia, COPD/Asthma w/ Chronic Hypoxic Respiratory Failure (2L NC), Seizure disorder, CKD stage III unclear subtype or GFR trending, GERD, BPH with obstructive pathology, Anxiety and depression, PJ noncompliant with PAP therapy, Tobacco use, recent discharge 12/16/24 following evaluation and treatment of Acute COPD Exacerbation who re- presents to the [facility] ED on 12/17/24 w/ severe dysarthria and right-sided facial droop with suspected CVA. #1. Acute severe dysarthria and right-sided facial droop secondary to acute left MCA stroke: Initial ED presentation with CT of the brain with no acute intracranial findings with cerebral atrophy, CTA head and neck with right and left ICA stenosis (right noted 75% stenosis, left noted 50% stenosis), MRI of the brain with focal restricted diffusion left periventricular deep white matter with multiple foci with the largest measuring 1.2 x 0.9 cm with associated increased T2 signal intermediate to decreased T1 signal consistent with subacute infarct, punctate foci restricted diffusion in the left precentral subcortical region with associated increased T2, decreased T1 signal consistent with subacute infarct, extensive abnormal increased T2 and flair signal throughout the deep white matter confluence in the periventricular regions consistent with chronic ischemic change, 3.1 x 1.5 cm arachnoid cyst in the medial left temporal tip, mucosal thickening of the right maxillary sinus. Patient with persistent ongoing global aphasia, right-sided facial droop unfortunately not extremely cooperative, suspected likely cardioembolic source as underlying PAF not chronically anticoagulated secondary to falls, currently on aspirin therapy but per neurology recommendation will very cautiously initiate Eliquis 5 mg p.o. twice daily following PEG placement which was discussed with gastroenterology given high risk however given fall risk was continue to assess risk and benefit. 12/23/2024 carotid ultrasound with moderate 50 to 69% stenosis of the right extracranial internal carotid and left extracranial internal carotid with patent antegrade vertebrals bilaterally. Refused EEG x 3. Vitamin B12 level normal limit at 774, initially received thiamine IV, transitioned to PEG version 12/24/24 . 12/23/24 s/p PEG placement thus will transition from TX ASA->eliquis, d/c IV keppra and resume liquid carbamazepine,transition to HTN regimen per PEG, added back statin per PEG. Patient will need follow-up with neurology for stroke follow-up as well as vascular Surgery given carotid disease. #2. Recent Acute COPD Exacerbation w/ Chronic Hypoxic and Hypercarbic Respiratory Failure: Recent presentation with exacerbation, currently maintained on Solu-Medrol 30 mg IV daily, 12/24/24 transitioned to prednisone 40 mg via PEG w/ planned 5 day burst taper at discharge. 12/24/24 change from IV PPI to PEG lansoprazole. Will continue ATC DuoNeb therapy as well as as needed albuterol. Continue supplemental oxygen currently 2 L nasal cannula which appears recent baseline. #3. Hypertension: 12/24/24 transitioned from IV labetalol, hydralazine, enalapril, clonidine patch given s/p PEG to metoprolol, losartan, nifedipine from XL->norvasc, continued clonidine patch with continued close monitoring for adjustments. #4. Chronic Kidney Disease Stage II per GFR trending: Admission BUN/creatinine 22/1.10, GFR 70, baseline renal function 1.1-1.2, 12/24/2024 BUN/creatinine 17/0.98, GFR 81, stable, continue to trend. #5. Chronic normocytic anemia/iron deficient anemia: Admission hemoglobin 12.4, MCV 89, baseline hemoglobin noted to vacillate however does range 11-12, 12/24/2024 hemoglobin 11.5, MCV 89.2, stable, continue to trend #6. PAF: 12/24/24 start BB and eliquis via PEG. #7. Hyperlipidemia: 12/24/24 restart statin via PEG. #8. Anxiety and depression: 12/24/24 restart sertraline and mirtazapine regimen via PEG. #9. BPH with obstructive pathology: 12/24/24 restart finasteride via PEG. Unable to use flomax with PEG. #10. GERD: 12/24/24 transition to PPI per PEG also. #11. Seizure disorder: 12/24/24 to liquid carbamazepine with dose now, d/c IV Keppra. #12. Tobacco Abuse: Patient extremely aphasic at this point, encouraged tobacco cessation. #13. PJ: Noncompliant with PAP therapy. #14. PAD: 12/24/24 will transition from rectal aspirin to Eliquis therapy status post PEG placement, transition from also IV hypertensive and topical hypertensive regimen to oral regimen, restart statin. #15. Former alcohol abuse: Encourage continued sobriety. #16. DVT prophylaxis: 12/24/24 start Eliquis, s/p PEG 12/23/24. #17. CODE status: From previous discussions with patient he had reported la cking healthcare power of patent prosecution attorney and living will but had noted he would want his ex- Giovana be his medical decision-maker at that time if absolutely necessary. Full Code status. Allergies/Procedures Done in Hospital Allergies No Known Allergies Allergy (Verified 04/06/24 11:12) Procedures: EKG and - (PEG tube placement.) Type of Care/Length of Stay Estimated LOS: More Than 30 Days Type of Care Needed: Skilled Rehab Potential: Fair Prognosis: Fair Additional Orders/Day of Discharge Day of Discharge: 12/24/24 Dietary and Speech Recommendations Dietitian Recommendations/Changes: 1. Recommend advanced diet as tolerated to cardiac per CHROME TANNING [employer] OPERATOR recommendations. 2. Will order to start at 8AM 12/24/24 via PEG Jevity 1.5Cal goal rate 55ml/hr with 165ml water flushes every 4 hours to provide 1980 calories, 84g protein, and 1993ml total free water per day. Would start at 10ml and increase by 10ml every 8-12 hours as tolerated until goal rate is achieved. Monitor labs for risk of refeeding syndrome due to prolonged NPO. Will make adjustments to tube feeding as needed. 3.Will order labs for magnesium and phosphorus to determine risk of refeeding syndrome. 4. Will monitor weight and labs. Discharge Plan Admission Admit Date/Time: 12/18/24 14:58 Primary Reason for Your Visit: Acute CVA, Severe Dysarthria, Dysphagia Attending Provider: Shilpa Contreras Primary Care Provider: Daija Douglas Consulting Providers: Aung Peres; Gogo Gill; Ryan Vargas; Tamika Xiao; Daylin Schmitt; Roman Patel; Chrystal Collier; Luan Mcgraw; Jo Hughes; JOSETTE CALDERON; Angelo Wiley; Neelam Almendarez; Lisha Talamantes Instructions Additional Instructions / Restrictions: ADDITIONAL DISCHARGE INSTRUCTIONS/INFORMATION: #1. Acute severe dysarthria and right-sided facial droop secondary to acute left MCA stroke: --CT of the brain with no acute intracranial findings with cerebral atrophy. --CTA head and neck with right and left ICA stenosis (right noted 75% stenosis, left noted 50% stenosis) with follow-up 12/23/2024 carotid ultrasound with moderate 50 to 69% stenosis of the right extracranial internal carotid and left extracranial internal carotid with patent antegrade vertebrals bilaterally. Will need outpatient follow-up with Vascular surgery as requested to monitor and re- evaluate. --MRI of the brain with focal restricted diffusion left periventricular deep white matter with multiple foci with the largest measuring 1.2 x 0.9 cm with associated increased T2 signal intermediate to decreased T1 signal consistent with subacute infarct, punctate foci restricted diffusion in the left precentral subcortical region with associated increased T2, decreased T1 signal consistent with subacute infarct, extensive abnormal increased T2 and flair signal throughout the deep white matter confluence in the periventricular regions consistent with chronic ischemic change, 3.1 x 1.5 cm arachnoid cyst in the medial left temporal tip, mucosal thickening of the right maxillary sinus. --s/p PEG tube placement on 12/23/24, initiated on tube feeds with nutrition consultation. Recommend continued nutrition consultation and evaluation at the detention facility for ongoing assessments and alteration to feedings as needed. --12/24/2024 initiated on Eliquis regimen with de-escalation off aspirin therapy per neurology recommendation with continued liquid carbamazepine, statin therapy, hypertensive regimen with alterations as needed to transition to PEG formulation. Encouraged continued evaluation and monitoring of blood pressure with adjustment and alteration to regimen to maintain appropriate blood pressure parameters. #2. Recent Acute COPD Exacerbation w/ Chronic Hypoxic and Hypercarbic Respiratory Failure: --Recent presentation with exacerbation, transitioned initially to Solu-Medrol 30 mg IV daily w/ 12/24/24 transitioned to prednisone 40 mg via PEG w/ planned taper at discharge. --Will continue ATC DuoNeb therapy as well as as needed albuterol. --Continue supplemental oxygen currently 2 L nasal cannula which appears recent baseline. Discharge Orders/Prescriptions Prescriptions: New acetaminophen 325 mg Tablet 650 mg feeding tube Q6H PRN PRN (Reason: Pain 1-10 Or Fever>100.7) Qty: 0 0RF ipratropium-albuterol 0.5 mg-3 mg(2.5 mg base)/3 mL Solution For Nebulization 3 ml inhalation .[id number] Qty: 0 0RF albuterol sulfate 2.5 mg /3 mL (0.083 %) Solution For Nebulization 2.5 mg inhalation Q4H PRN (Reason: DYSPNEA/WHEEZING/SOB) Qty: 0 0RF clonidine 0.2 mg/24 hr Patch Weekly 0.2 mg transdermal Q7D Qty: 0 0RF amlodipine 10 mg Tablet 10 mg G-tube DAILY.RT Qty: 0 0RF carbamazepine 100 mg/5 mL Suspension 200 mg G-tube 4X/DAY Qty: 0 0RF Eliquis 5 mg Tablet 5 mg G-tube BID Qty: 0 0RF melatonin 3 mg Tablet 3 mg G-tube QHS PRN PRN (Reason: Insomnia) Qty: 0 0RF prednisone 20 mg Tablet 40 mg G-tube BREAKFAST 5 Days Qty: 10 0RF thiamine HCl (vitamin B1) 100 mg Tablet 100 mg G-tube BREAKFAST Qty: 0 0RF Jevity 1.5 Alex 0.06 gram-1.5 kcal/mL liquid 55 ml feeding tube .18hours Qty: 5688 0RF Rx Instructions: Goal TF: 55 ml/hr to run for 18 hours/day. Upon SNF transition goal is to achieve this and would plan to increase by 10 ml/hr every 8-12 hours until achieve the goal of 55 ml/hr for the 18 hour run daily. Flush 165 ml free water every 4 hours. lansoprazole 15 mg capsule,delayed release(DR/EC) 15 mg feeding tube DAILY 30 Days Qty: 30 0RF Continued atorvastatin 40 MG tablet 40 mg PO QHS Patient Comments: CHOLESTEROL alendronate 70 mg tablet 70 mg PO QWEEK Qty: 1 0RF clonidine 0.2 mg/24 hr patch weekly 1 patch topical QWEEK Patient Comments: HAS ONE ON NOW Changed sertraline 100 mg tablet 100 mg feeding tube DAILY 30 Days Qty: 30 0RF mirtazapine 15 MG tablet 15 mg feeding tube QHS 30 Days Qty: 30 0RF gabapentin 100 mg capsule 100 mg feeding tube DAILY 30 Days Qty: 30 0RF ergocalciferol (vitamin D2) [Vitamin D2] 1,250 mcg (50,000 unit) Capsule 1,250 mcg feeding tube Q7D Qty: 0 0RF losartan 100 mg tablet 100 mg feeding tube DAILY 30 Days Qty: 30 0RF finasteride 5 MG tablet 5 mg feeding tube DAILY 30 Days Qty: 30 0RF Patient Comments: prostate metoprolol tartrate 25 mg tablet 25 mg feeding tube DAILY 30 Days Qty: 30 0RF cholecalciferol (vitamin D3) 50 mcg (2,000 unit) tablet 50 mcg feeding tube DAILY 30 Days Qty: 30 0RF Discontinued albuterol sulfate 90 mcg/actuation HFA aerosol inhaler 1 puff inhalation Q8H carbamazepine 200 mg tablet extended release 12 hr 200 mg PO Q12H tamsulosin 0.4 MG capsule 0.4 mg PO QHS Patient Comments: Prostate and urine clopidogrel 75 MG tablet 75 mg PO DAILY pantoprazole 40 mg tablet,delayed release (DR/EC) 40 mg PO DAILY nifedipine 90 mg tablet extended release 90 mg PO DAILY sennosides-docusate sodium [Stool Softener-Stimulant Laxat] 8.6-50 mg Tablet 2 tab PO BID PRN PRN (Reason: Constipation) Qty: 0 0RF albuterol sulfate 2.5 mg /3 mL (0.083 %) solution for nebulization 2.5 mg continuous nebulization DAILY Patient Comments: [NO ORIGINAL SIG] acetaminophen 500 mg Tablet 1,000 mg PO Q8 PRN (Reason: fever or pain) prednisone 10 mg tablet 10 mg PO DAILY Qty: 40 0RF Rx Instructions: 4 tablets x 4 days, 3 tablets x 4 days, 2 tablets x 4 days, 1 tablet x 4 days nicotine [Nicoderm CQ] 21 mg/24 hr patch 24 hour 1 patch transdermal DAILY Qty: 14 0RF clonidine HCl 0.1 mg Tablet 0.1 mg PO TID Qty: 0 0RF Rx Instructions: Hold for heart less than 50 or systolic blood pressure less than 140 mmHg. dextromethorphan-guaifenesin 60-1,200 mg tablet extended release 12 hr 1 tab PO BID 7 Days Qty: 14 0RF nicotine 14 mg/24 hr Patch 24 Hour 14 mg transdermal DAILY 28 Days Qty: 28 0RF prednisone 20 mg Tablet 40 mg PO BREAKFAST 1 Days Qty: 2 0RF Rx Instructions: For 1 more day tomorrow 09/03/2024 Referrals / Follow Up: Daija Douglas MD [Primary Care Provider] - (Follow-up within 1-2 weeks following discharge to review admission.) Raul Jensen MD [Med Staff - Active Staff] - (Follow-up in 2-4 weeks for evaluation notable carotid disease to continue to monitor.) Korey Gibbs MD [Non-Staff -Ordering Privileges] - (Follow-up with Neurology, may see MATH SPECIALIST within 2-4 weeks of discharge.) Disposition Disposition (needs filled in before D/C Order can be placed): [facility]
--- NOTE | 2024-12-24 17:55 | PCM.PN.BLA ---
Progress Note Patient is still tolerating PEG feeds without any problems. He was started back on anti-coagulation. Physical Exam Narrative Physical Examination: General: Awake, appears alert but not answering any orientation questions, extremely aphasic, seated upright in the PCU bed today. Skin: Normal color, normal turgor, no icterus, no cyanosis except occasional stage ecchymoses, abrasions. HEENT: AT/NC, EOMI, chronic significant right pupil dilation, more pinpoint left pupil left-sided facial droop, mildly dry MM, persistent left facial droop, mild tongue deviation to the right. Lungs: Diminished, greater bases, appropriate effort, no rales, ronchi or wheezing. Heart: Regular rate and rhythm; no gallop, rub audible. Abdomen: Soft, NTTP, ND, mildly hyperactive BS, status post PEG tube placement. Extremities: No cyanosis, no clubbing, no significant distal edema. Neurological: Awake, appears alert but not answering any orientation questions, extremely aphasic, cognitive function certainly decreased from previous baseline during previous admission, cranial nerves difficult to assess given command willingness, at this point as noted evidence of persistent left facial droop, mild tongue deviation to the right, chronic pupillary changes as noted, global aphasia, intermittently moving extremities been ongoing any commands, strength difficult to assess is not following commands. Psychiatric: Affect appears currently very flat, no acute evidence of depressive or anxiety feelings. Assessment & Plan Assessment/Plan (1) Acute CVA (cerebrovascular accident): (2) Facial droop: (3) Aphasia: PLAN: Plan 71-year-old with an acute left MCA stroke with severe esophageal dysphagia. He is status post PEG tube. He is okay for antiplatelet and anticoagulation therapy. Visit Charges Inpatient E&M: 27073 Subs Hosp L2
[2024-12-24] MEDS: 0.9% Saline Lock 10 ML Syringe IV (23:12)
[2024-12-25] VITALS (24 sets, daily range): BP systolic 106–228; BP diastolic 50–123; PULSE 59–77; RESP 16–20; TEMP 36.1–36.5; O2SAT 90–99; BMI 24.5
[2024-12-25] MEDS: 0.9% Saline Lock 10 ML Syringe IV (00:32)
[2024-12-25 06:11] LABS: Hematocrit 40.5 % (40-54); Hemoglobin 12.5 g/dL (13.0-16.5); Immature Granulocytes Count 0.080 X10^3/uL (0.0-0.0); Mean Corp Hgb Conc 30.9 g/dL (32-36); Mean Corpuscular Volume 88.6 fL (80-94); Mean Platelet Vol. 10.2 fl (6.2-12.0); NRBC Flagged by Analyzer 0 % (0-5); Platelet Count 449 K/mm3 (150-450); RBC Distribution Width CV 14.5 % (11.6-14.6); RBC Distribution Width SD 45.9 fl (35.1-43.9); Red Blood Count 4.57 M/mm3 (4.6-6.2); White Blood Count 12.0 K/mm3 (4.4-11.0)
[2024-12-25 06:34] LABS: AST(SGOT) 31 U/L (<=37); Alanine Aminotransfer ALT/SGPT 22 U/L (<=46); Albumin, Serum 4.0 g/dL (3.4-4.8); Alkaline Phosphatase 74 U/L (40-129); Anion Gap 12 (5-15); BUN 14 mg/dL (4-19); BUN/Creat Ratio 13.4 RATIO (10-20); Calcium,Total 9.5 mg/dL (7.6-11.0); Carbon Dioxide 27.5 mmol/L (21.0-32.0); Chloride 101 mmol/L (98-108); Estimated Creatinine Clearance 58.81 ml/min (50-250); Globulin 2.7 g/dL (2.2-4.2); Glucose 118 mg/dL (70-99); Magnesium 2.3 mg/dL (1.5-2.2); Potassium 3.3 mmol/L (3.3-5.1)
--- NOTE | 2024-12-25 06:52 | PCM.PN.HOSP ---
Reason for Visit Reason for Visit: Diagnoses Cerebral infarction, unspecified (12/18/24) Facial weakness (12/18/24) Aphasia (12/18/24) Subjective Subjective Patient with no acute events overnight per nursing report. Patient remains globally aphasic and is not interactive. His blood pressure was increased above goal therefore hydralazine regimen per PEG tube added this morning. Patient is still awaiting nursing facility bed transition clearance. Patient currently tolerating tube feeds up to 30 cc/h with continued slow increase to goal. Patient is unable to perform ROS questioning. Objective Data Objective Data Vital Signs: Vital Signs Temp Pulse Resp BP Pulse Ox O2 Del Method O2 Flow Rate 97.1 F L 77 18 175/55 H 95 Nasal Cannula 2 12/25/24 05:23 12/25/24 05:23 12/25/24 05:23 12/25/24 05:23 12/25/24 05:23 12/25/24 05:23 12/25/24 05:23 Oxygen Flow Rate (L/min) 2 Oxygen Delivery Method Nasal Cannula Weight: 160 lb 14.999 oz Body Mass Index (BMI) 24.5 Intake & Output: Intake and Output for Last 24 Hours 12/23/24 12/24/24 12/25/24 23:59 23:59 23:59 Intake Total 2064.00 / 2064.00 848.33 / 848.33 161.67 / 161.67 Output Total 878 / 878 500 / 500 1200 / 1200 Balance 1186.00 / 1186.00 348.33 / 348.33 -1038.33 / -1038.33 Lab / Micro Data 12/25/24 05:20 12/25/24 05:20 Labs: Laboratory Results - last 24 hr 12/25/24 05:20: WBC 12.0 H, RBC 4.57 L, Hgb 12.5 L, Hct 40.5, MCV 88.6, MCH 27.4, MCHC 30.9 L, RDW Std Deviation 45.9 H, RDW Coeff of Aly 14.5, Plt Count 449, MPV 10.2, Immature Gran % (Auto) 0.700, Neut % (Auto) 82.3 H, Lymph % (Auto) 8.0 L, [place] % (Auto) 8.4, Eos % (Auto) 0.3, Baso % (Auto) 0.3, Absolute Neuts (auto) 9.8 H, Absolute Lymphs (auto) 0.96, Nucleated RBC % 0, Sodium 141, Potassium 3.3, Chloride 101, Carbon Dioxide 27.5, Anion Gap 12, BUN 14, Creatinine 1.05, Estim Creat Clear Calc 58.81, Est GFR (MDRD) Non-Af 74, BUN/Creatinine Ratio 13.4, Glucose 118 H, Calcium 9.5, Magnesium 2.3 H, Total Bilirubin 0.23, AST 31, ALT 22, Alkaline Phosphatase 74, Total Protein 6.7, Albumin 4.0, Globulin 2.7, Albumin/Globulin Ratio 1.5 Micro: Microbiology 12/19/24 10:00 Stool Enteric Bacteriology - Final 12/18/24 13:51 Stool Clostridioides difficile (PCR) - Final Physical Exam Narrative Physical Examination: General: Awake, appears alert but not answering any orientation questions, extremely aphasic, seated upright in the PCU bed, no obvious distress. Skin: Normal color, normal turgor, no icterus, no cyanosis except occasional stage ecchymoses, abrasions. HEENT: AT/NC, EOMI, chronic significant right pupil dilation, more pinpoint left pupil left-sided facial droop, continued mildly dry MM, persistent left facial droop, mild tongue deviation to the right. Lungs: Diminished, greater bases, appropriate effort, no rales, ronchi or wheezing. Heart: Regular rate and rhythm; no gallop, rub audible. Abdomen: Soft, NTTP, ND, mildly hyperactive BS, PEG tube in place with ongoing tube feeds at this time noted to be at 30 cc/h. Extremities: No cyanosis, no clubbing, no significant distal edema. Neurological: Awake, appears alert but not answering any orientation questions, extremely aphasic, cognitive function certainly decreased from previous baseline during previous admission, cranial nerves difficult to assess given command willingness, at this point as noted evidence of persistent left facial droop, mild tongue deviation to the right, chronic pupillary changes as noted, global aphasia, intermittently moving extremities been ongoing any commands, strength difficult to assess is not following commands. Psychiatric: Affect appears flat, no acute evidence of depressive or anxiety feelings. Assessment & Plan Assessment/Plan (1) Acute CVA (cerebrovascular accident): PLAN: Plan The patient is a 74 y/o M w/ PMHx: Former EtOH abuse, PAD s/p peripheral PCI, PAF reporting that he is on chronic Coumadin therapy but verified this was not the case, HTN, HLD, Chronic anemia/Fe deficiency anemia, COPD/Asthma w/ Chronic Hypoxic Respiratory Failure (2L NC), Seizure disorder, CKD stage III unclear subtype or GFR trending, GERD, BPH with obstructive pathology, Anxiety and depression, PJ noncompliant with PAP therapy, Tobacco use, recent discharge 12/16/24 following evaluation and treatment of Acute COPD Exacerbation who re-presents to the [facility] ED on 12/17/24 w/ severe dysarthria and right-sided facial droop with suspected CVA. #1. Acute severe dysarthria and right-sided facial droop secondary to acute left MCA stroke: Initial ED presentation with CT of the brain with no acute intracranial findings with cerebral atrophy, CTA head and neck with right and left ICA stenosis (right noted 75% stenosis, left noted 50% stenosis), MRI of the brain with focal restricted diffusion left periventricular deep white matter with multiple foci with the largest measuring 1.2 x 0.9 cm with associated increased T2 signal intermediate to decreased T1 signal consistent with subacute infarct, punctate foci restricted diffusion in the left precentral subcortical region with associated increased T2, decreased T1 signal consistent with subacute infarct, extensive abnormal increased T2 and flair signal throughout the deep white matter confluence in the periventricular regions consistent with chronic ischemic change, 3.1 x 1.5 cm arachnoid cyst in the medial left temporal tip, mucosal thickening of the right maxillary sinus. Patient with persistent ongoing global aphasia, right-sided facial droop unfortunately not extremely cooperative, suspected likely cardioembolic source as underlying PAF not chronically anticoagulated secondary to falls, currently on aspirin therapy but per neurology recommendation will very cautiously initiate Eliquis 5 mg p.o. twice daily following PEG placement which was discussed with gastroenterology given high risk however given fall risk was continue to assess risk and benefit. 12/23/2024 carotid ultrasound with moderate 50 to 69% stenosis of the right extracranial internal carotid and left extracranial internal carotid with patent antegrade vertebrals bilaterally. Refused EEG x 3. Vitamin B12 level normal limit at 774, initially received thiamine IV, transitioned to PEG version 12/24/24. 12/23/24 s/p PEG placement with following transition from GA ASA->eliquis, d/c IV keppra and resume liquid carbamazepine, transition to HTN regimen per PEG, added back statin per PEG. 12/25/2024 added hydralazine per PEG as BP still not within control but this may need to continue to be adjusted and evaluated on outpatient basis to at skilled facility. Patient will need follow-up with neurology for stroke follow-up as well as vascular Surgery given carotid disease. 12/25/2024 still awaiting certification for transition to skilled facility #2. Recent Acute COPD Exacerbation w/ Chronic Hypoxic and Hypercarbic Respiratory Failure: Recent presentation with exacerbation, currently maintained on Solu-Medrol 30 mg IV daily, 12/24/24 transitioned to prednisone 40 mg via PEG w/ planned 5 day burst taper at discharge. 12/24/24 change from IV PPI to PEG lansoprazole. Will continue ATC DuoNeb therapy as well as as needed albuterol. Continue supplemental oxygen currently 2 L nasal cannula which appears recent baseline. #3. Hypertension: 12/24/24 transitioned from IV labetalol, hydralazine, enalapril, clonidine patch given s/p PEG to metoprolol, losartan, nifedipine from XL->norvas, continued clonidine patch, 12/25/2024 added additionally lower dose hydralazine 4 times daily via PEG given BP not at control and likely suspect will need further adjustments over time, as needed IV hydralazine. #4. Chronic Kidney Disease Stage II per GFR trending: Admission BUN/creatinine 22/1.10, GFR 70, baseline renal function 1.1-1.2, 12/25/2024 BUN/creatinine 1 14/1.05, GFR 74, stable, continue to trend. #5. Chronic normocytic anemia/iron deficient anemia: Admission hemoglobin 12.4, MCV 89, baseline hemoglobin noted to vacillate however does range 11-12, 12/25/2024 hemoglobin 12.5, MCV 88.6, stable, continue to trend #6. PAF: 12/24/24 restarted BB and initiated eliquis via PEG. #7. Hyperlipidemia: 12/24/24 restarted statin via PEG. #8. Anxiety and depression: 12/24/24 restarted sertraline and mirtazapine regimen via PEG. #9. BPH with obstructive pathology: 12/24/24 restarted finasteride via PEG. Unable to use flomax with PEG. #10. GERD: 12/24/24 transition to PPI per PEG also. #11. Seizure disorder: 12/24/24 transitioned liquid carbamazepine with dose now, d/c IV Keppra. #12. Tobacco Abuse: Patient extremely aphasic at this point, encouraged tobacco cessation. #13. PJ: Noncompliant with PAP therapy but at this point given concern for aspiration potential would defer. #14. PAD: 12/24/24 transitioned from rectal aspirin to Eliquis therapy status post PEG placement, transition from IV hypertensive and topical hypertensive regimen to oral regimen, restarted statin. #15. Former alcohol abuse: Encourage continued sobriety. #16. DVT prophylaxis: Continued on Eliquis per PEG. #17. CODE status: From previous discussions with patient he had reported lacking healthcare power of assistant prosecuting attorney and living will but had noted he would want his ex- Giovana be his medical decision-maker at that time if absolutely necessary. Full Code status. Charges/Coding Visit Charges Inpatient E&M: 49308 Subs Hosp L2 NIHSS NIHSS Nursing Documentation NIHSS Nursing Documentation: NIHSS: Ischemic Stroke/TIA Start: 12/17/24 18:52 Text: For PCU Patients: NIH and Neuro Check every 4 Status: Complete hours, PRN and with change in RN caregiver. Freq: Q12 Protocol: Activity Type Activity Date Activity User E-sign Co-sign Detail Recorded Client Recorded Date Recorded By Document 12/22/24 08:15 DS [id number] 12/22/24 08:19 DS 12/22/24 08:15 NIH Stroke Scale [NIHSS] A score of 0 is normal or asymptomatic . Total possible score is 42. Inpatient: RN or Physician to activate a stroke alert for onset of new stroke symptoms or with NIHSS increase >/= 3 points. Following change in neurological status, NIHSS will be performed per physician order or more frequently PRN. -1a. Level of Consciousness 0 - Alert; keenly responsive -1b. LOC Questions 2 - Answers NEITHER question correctly -1c. LOC Commands 0 - Performs BOTH tasks correctly -2. Best Gaze 0 - Normal -3. Visual 0 - No visual loss -4. Facial Palsy 1 - Minor paralysis ( flattened nasolabial fold , asymmetry on smiling) -5a. Left Arm 0 - No drift; arm holds 90 ( or 45) degrees for full 10 seconds -5b. Right Arm 2 - Some effort against gravity; -6a. Left Leg 0 - No drift; leg holds 30- degree position for full 5 seconds -6b. Right Leg 2 - Some effort against gravity; -7. Limb Ataxia 0 - Absent -8. Sensory 0 - Normal; no sensory loss -9. Best Language 3 - Mute, global aphasia; -10. Dysarthria 2 - Severe dysarthria; -11. Extinction and Inattention 0 - No abnormality -Total 12 Query Text:A score of 0 is normal or asymptomatic. Total possible score is 42 . ED: Notify Physician for NIHSS increase by > / = 3 points. Inpatient: RN or Physician to activate a stroke alert for NIHSS increase of > / = 3 points. Coma Scale [Assess] -Eye Opening Spontaneous -Motor Obeys Commands -Verbal Incomprehensibl e [Total] -Coma Scale Total 12
[2024-12-25] MEDS: Thiamine Hydrochloride 100 MG Tablet GT (08:54)
[2024-12-25] MEDS: APIXABAN 5 MG TABLET GT ×2 (08:54→20:57)
[2024-12-25] MEDS: Jevity 1.5 1,000 ML 40 ML GT (10:18)
[2024-12-25] MEDS: carBAMazepine 200 MG/10 ML UDC (WCH) GT ×4 (10:18→20:57)
[2024-12-25] MEDS: Potassium Phosphate 21 MM in 0.9% Normal Saline (250mL Bag) 250 ML 84 MM IV (10:19)
--- NOTE | 2024-12-25 14:43 | CASEMGMT ---
Social Work Precert was started on 12/24 for authorization for SNF stay at [facility]. Precert is still pending at this time. SW will continue to follow for placement. Plan: ERIC, pending precert SHANE Grace
[2024-12-26] VITALS (10 sets, daily range): BP systolic 143–162; BP diastolic 60–75; PULSE 70–78; RESP 16–20; TEMP 36.4–36.6; O2SAT 94–96; BMI 24.5
--- NOTE | 2024-12-26 07:00 | PCM.PN.HOSP ---
Reason for Visit Reason for Visit: Diagnoses Cerebral infarction, unspecified (12/18/24) Facial weakness (12/18/24) Aphasia (12/18/24) Subjective Subjective Patient with no acute events overnight per nursing report. Blood pressure has vacillated but improved with initiation of low-dose hydralazine per PEG. Given continued clinical stability and at this point only awaiting [facility] facility discussed with nursing staff and patient de-escalated off of telemetry monitoring. Patient without any evidence of fevers, chills, nausea, emesis, abdominal pain, chest pain or dyspnea but patient is unable to give ROS himself given his severe global aphasia. Objective Data Objective Data Vital Signs: Vital Signs Temp Pulse Resp BP Pulse Ox O2 Del Method O2 Flow Rate 97.6 F L 78 18 160/63 H 94 Nasal Cannula 3 12/26/24 04:08 12/26/24 06:26 12/26/24 06:26 12/26/24 04:08 12/26/24 06:26 12/26/24 06:26 12/26/24 06:26 Oxygen Flow Rate (L/min) 3 Oxygen Delivery Method Nasal Cannula Weight: 160 lb 14.999 oz Body Mass Index (BMI) 24.5 Intake & Output: Intake and Output for Last 24 Hours 12/24/24 12/25/24 12/26/24 23:59 23:59 23:59 Intake Total 848.33 / 848.33 1544.00 / 1544.00 Output Total 500 / 500 3450 / 3450 Balance 348.33 / 348.33 -1906.00 / -1906.00 Lab / Micro Data 12/26/24 06:37 12/26/24 06:37 Labs: Laboratory Results - last 24 hr 12/25/24 05:20: Phosphorus 2.0 L Micro: Microbiology 12/19/24 10:00 Stool Enteric Bacteriology - Final 12/18/24 13:51 Stool Clostridioides difficile (PCR) - Final Physical Exam Narrative Physical Examination: General: Awake, appears alert but not answering any orientation questions, extremely aphasic, seated upright in the PCU bedside chair, no obvious acute distress. Skin: Normal color, normal turgor, no icterus, no cyanosis except occasional stage ecchymoses, abrasions. HEENT: AT/NC, EOMI, chronic significant right pupil dilation, more pinpoint left pupil left-sided facial droop, continued mildly dry MM, persistent left facial droop, mild tongue deviation to the right. Lungs: Diminished, greater bases, appropriate effort, no rales, ronchi or wheezing. Heart: Regular rate and rhythm; no gallop, rub audible. Abdomen: Soft, NTTP, ND, normal BS, PEG tube in place with ongoing tube feeds at this time noted to be at goal 55 cc/h. Extremities: No cyanosis, no clubbing, no significant distal edema. Neurological: Awake, appears alert but not answering any orientation questions, extremely aphasic, cognitive function certainly decreased from previous baseline during previous admission, cranial nerves difficult to assess given command willingness, at this point as noted evidence of persistent left facial droop, mild tongue deviation to the right, chronic pupillary changes as noted, global aphasia, intermittently moving extremities been ongoing any commands, strength difficult to assess is not following commands. Psychiatric: Affect appears flat, no acute evidence of depressive or anxiety feelings. Assessment & Plan Assessment/Plan (1) Acute CVA (cerebrovascular accident): PLAN: Plan The patient is a 74 y/o M w/ PMHx: Former EtOH abuse, PAD s/p peripheral PCI, PAF reporting that he is on chronic Coumadin therapy but verified this was not the case, HTN, HLD, Chronic anemia/Fe deficiency anemia, COPD/Asthma w/ Chronic Hypoxic Respiratory Failure (2L NC), Seizure disorder, CKD stage III unclear subtype or GFR trending, GERD, BPH with obstructive pathology, Anxiety and depression, PJ noncompliant with PAP therapy, Tobacco use, recent discharge 12/16/24 following evaluation and treatment of Acute COPD Exacerbation who re-presents to the [facility] ED on 12/17/24 w/ severe dysarthria and right-sided facial droop with suspected CVA. #1. Acute severe dysarthria and right-sided facial droop secondary to acute left MCA stroke: Initial ED presentation with CT of the brain with no acute intracranial findings with cerebral atrophy, CTA head and neck with right and left ICA stenosis (right noted 75% stenosis, left noted 50% stenosis), MRI of the brain with focal restricted diffusion left periventricular deep white matter with multiple foci with the largest measuring 1.2 x 0.9 cm with associated increased T2 signal intermediate to decreased T1 signal consistent with subacute infarct, punctate foci restricted diffusion in the left precentral subcortical region with associated increased T2, decreased T1 signal consistent with subacute infarct, extensive abnormal increased T2 and flair signal throughout the deep white matter confluence in the periventricular regions consistent with chronic ischemic change, 3.1 x 1.5 cm arachnoid cyst in the medial left temporal tip, mucosal thickening of the right maxillary sinus. Patient with persistent ongoing global aphasia, right-sided facial droop unfortunately not extremely cooperative, suspected likely cardioembolic source as underlying PAF not chronically anticoagulated secondary to falls, currently on aspirin therapy but per neurology recommendation will very cautiously initiate Eliquis 5 mg p.o. twice daily following PEG placement which was discussed with gastroenterology given high risk however given fall risk was continue to assess risk and benefit. 12/23/2024 carotid ultrasound with moderate 50 to 69% stenosis of the right extracranial internal carotid and left extracranial internal carotid with patent antegrade vertebrals bilaterally. Refused EEG x 3. Vitamin B12 level normal limit at 774, initially received thiamine IV, transitioned to PEG version 12/24/24. 12/23/24 s/p PEG placement with following transition from DC ASA->eliquis, d/c IV keppra and resume liquid carbamazepine, transition to HTN regimen per PEG, added back statin per PEG. 12/25/2024 added hydralazine per PEG as BP still not within control with improvement but likely will need ongoing adjustment. Will plan for outpatient neurology/vascular surgery follow-up. 12/26/2024 patient again remains clinically appropriate and stable therefore will de-escalate off telemetry as only awaiting precertification for skilled placement. #2. Recent Acute COPD Exacerbation w/ Chronic Hypoxic and Hypercarbic Respiratory Failure: Recent presentation with exacerbation, currently maintained on Solu-Medrol 30 mg IV daily, 12/24/24 transitioned to prednisone 40 mg via PEG w/ planned 5 day burst taper at discharge. 12/24/24 changed from IV PPI to PEG lansoprazole. Continued on TC DuoNeb therapy as well as as needed albuterol. Continue supplemental oxygen currently 2 L nasal cannula which appears recent baseline. #3. Hypertension: 12/24/24 transitioned from IV labetalol, hydralazine, enalapril, clonidine patch given s/p PEG to metoprolol, losartan, nifedipine from XL->norvasc, continued clonidine patch, 12/25/2024 added additionally lower dose hydralazine 4 times daily via PEG given BP not at control and likely suspect will need further adjustments over time, as needed IV hydralazine. #4. Chronic Kidney Disease Stage II per GFR trending: Admission BUN/creatinine 22/1.10, GFR 70, baseline renal function 1.1-1.2, 12/26/2024 BUN/creatinine 15/1.07, GFR 72, stable, continue to trend. #5. Chronic normocytic anemia/iron deficient anemia: Admission hemoglobin 12.4, MCV 89, baseline hemoglobin noted to vacillate however does range 11-12, 12/26/2024 hemoglobin 11.3, MCV 87.3, stable, continue to trend #6. PAF: 12/24/24 restarted BB and initiated eliquis via PEG. #7. Hyperlipidemia: 12/24/24 restarted statin via PEG. #8. Anxiety and depression: 12/24/24 restarted sertraline and mirtazapine regimen via PEG. #9. BPH with obstructive pathology: 12/24/24 restarted finasteride via PEG. Unable to use flomax with PEG. #10. GERD: 12/24/24 transition to PPI per PEG also. #11. Seizure disorder: 12/24/24 transitioned liquid carbamazepine with dose now, d/c IV Keppra. #12. Tobacco Abuse: Patient extremely aphasic at this point, encouraged tobacco cessation. #13. PJ: Noncompliant with PAP therapy but at this point given concern for aspiration potential would defer. #14. PAD: 12/24/24 transitioned from rectal aspirin to Eliquis therapy status post PEG placement, transition from IV hypertensive and topical hypertensive regimen to oral regimen, restarted statin. #15. Former alcohol abuse: Encourage continued sobriety. #16. DVT prophylaxis: Continued on Eliquis per PEG. #17. CODE status: From previous discussions with patient he had reported lacking healthcare power of bankruptcy attorney and living will but had noted he would want his ex- Giovana be his medical decision-maker at that time if absolutely necessary. Full Code status. Charges/Coding Visit Charges Inpatient E&M: 33358 Subs Hosp L2 NIHSS NIHSS Nursing Documentation NIHSS Nursing Documentation: NIHSS: Ischemic Stroke/TIA Start: 12/17/24 18:52 Text: For PCU Patients: NIH and Neuro Check every 4 Status: Complete hours, PRN and with change in RN caregiver. Freq: Q12 Protocol: Activity Type Activity Date Activity User E-sign Co-sign Detail Recorded Client Recorded Date Recorded By Document 12/22/24 08:15 DS [id number] 12/22/24 08:19 DS 12/22/24 08:15 NIH Stroke Scale [NIHSS] A score of 0 is normal or asymptomatic . Total possible score is 42. Inpatient: RN or Physician to activate a stroke alert for onset of new stroke symptoms or with NIHSS increase >/= 3 points. Following change in neurological status, NIHSS will be performed per physician order or more frequently PRN. -1a. Level of Consciousness 0 - Alert; keenly responsive -1b. LOC Questions 2 - Answers NEITHER question correctly -1c. LOC Commands 0 - Performs BOTH tasks correctly -2. Best Gaze 0 - Normal -3. Visual 0 - No visual loss -4. Facial Palsy 1 - Minor paralysis ( flattened nasolabial fold , asymmetry on smiling) -5a. Left Arm 0 - No drift; arm holds 90 ( or 45) degrees for full 10 seconds -5b. Right Arm 2 - Some effort against gravity; -6a. Left Leg 0 - No drift; leg holds 30- degree position for full 5 seconds -6b. Right Leg 2 - Some effort against gravity; -7. Limb Ataxia 0 - Absent -8. Sensory 0 - Normal; no sensory loss -9. Best Language 3 - Mute, global aphasia; -10. Dysarthria 2 - Severe dysarthria; -11. Extinction and Inattention 0 - No abnormality -Total 12 Query Text:A score of 0 is normal or asymptomatic. Total possible score is 42 . ED: Notify Physician for NIHSS increase by > / = 3 points. Inpatient: RN or Physician to activate a stroke alert for NIHSS increase of > / = 3 points. Coma Scale [Assess] -Eye Opening Spontaneous -Motor Obeys Commands -Verbal Incomprehensibl e [Total] -Coma Scale Total 12
[2024-12-26 07:17] LABS: Hematocrit 35.8 % (40-54); Hemoglobin 11.3 g/dL (13.0-16.5); Immature Granulocytes Count 0.050 X10^3/uL (0.0-0.0); Mean Corp Hgb Conc 31.6 g/dL (32-36); Mean Corpuscular Volume 87.3 fL (80-94); Mean Platelet Vol. 10.1 fl (6.2-12.0); NRBC Flagged by Analyzer 0 % (0-5); Platelet Count 363 K/mm3 (150-450); RBC Distribution Width CV 14.7 % (11.6-14.6); RBC Distribution Width SD 46.5 fl (35.1-43.9); Red Blood Count 4.10 M/mm3 (4.6-6.2); White Blood Count 10.2 K/mm3 (4.4-11.0)
[2024-12-26 07:52] LABS: AST(SGOT) 22 U/L (<=37); Alanine Aminotransfer ALT/SGPT 19 U/L (<=46); Albumin, Serum 3.7 g/dL (3.4-4.8); Alkaline Phosphatase 67 U/L (40-129); Anion Gap 12 (5-15); BUN 15 mg/dL (4-19); BUN/Creat Ratio 14.4 RATIO (10-20); Calcium,Total 9.7 mg/dL (7.6-11.0); Carbon Dioxide 30.3 mmol/L (21.0-32.0); Chloride 98 mmol/L (98-108); Estimated Creatinine Clearance 57.71 ml/min (50-250); Globulin 2.3 g/dL (2.2-4.2); Glucose 142 mg/dL (70-99); Potassium 3.4 mmol/L (3.3-5.1)
--- NOTE | 2024-12-26 08:09 | NS ---
12/26/24: RDN ordered daily weights. Ale Matson RDN, LD
[2024-12-26] MEDS: APIXABAN 5 MG TABLET GT (08:30)
[2024-12-26] MEDS: Thiamine Hydrochloride 100 MG Tablet GT (08:30)
[2024-12-26] MEDS: carBAMazepine 200 MG/10 ML UDC (WCH) GT ×3 (08:31→18:05)
[2024-12-26] MEDS: Jevity 1.5 1,000 ML 55 ML GT (08:36)
--- NOTE | 2024-12-26 09:57 | CASEMGMT ---
Social Work - SNF placement Updated clinicals faxed to [place]. Precert is pending at this time. SW updated [facility] that pt is medically ready and only waiting on precert at this time. SHANE Tinoco
--- NOTE | 2024-12-26 15:33 | DS.PCM_ITS ---
Providers Date of Admission: 12/18/24 Date of Discharge: 12/26/24 Primary Care Physician: Dr. Daija Douglas MD Consultations 12/19/24 15:57 Consult: Gastroenterology Routine Consulting Provider: [facility] Reason for Consult: Dysphagia-PEG EMERGENT Consult: No MD Notified: Yes Date Notified: 12/19/24 Time Notified: 15:58 Method of Notification: Text Reason For Visit: STROKELIKE SYMPTOMS Diagnosis Discharge Diagnosis (1) Acute CVA (cerebrovascular accident): Status: Acute Code(s): I63.9 - Cerebral infarction, unspecified Plan: DISCHARGE DIAGNOSES: #1. Acute severe dysarthria and right-sided facial droop secondary to acute left MCA stroke #2. Recent Acute COPD Exacerbation w/ Chronic Hypoxic and Hypercarbic Respiratory Failure #3. Hypertension #4. Chronic Kidney Disease Stage II per GFR trending #5. Chronic normocytic anemia/iron deficient anemia #6. PAF #7. Hyperlipidemia #8. Anxiety and depression #9. BPH with obstructive pathology #10. GERD #11. Seizure disorder #12. 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 PAD #15. Former alcohol abuse #16. CODE status: From previous discussions with patient he had reported lacking healthcare power of securities attorney and living will but had noted he would want his ex- Giovana be his medical decision-maker at that time if absolutely necessary. Full Code status. Medications at Discharge Home Medications atorvastatin 40 mg tablet 40 mg PO QHS Cholesterol 09/23/15 alendronate 70 mg tablet 70 mg PO QWEEK OSTEOPROSIS #1 TAB 11/30/21 clonidine 0.2 mg/24 hr weekly transdermal patch 1 patch topical QWEEK BLOOD PRESSURE 12/13/24 acetaminophen 325 mg tablet 650 mg (2 x 325 mg) feeding tube Q6H PRN PRN Pain 1- 10 Or Fever>100.7 #0 tabs 12/24/24 albuterol sulfate 2.5 mg/3 mL (0.083 %) solution for nebulization 2.5 mg (3 mL) inhalation Q4H PRN DYSPNEA/WHEEZING/SOB #0 mL 12/24/24 amlodipine 10 mg tablet 10 mg G-tube DAILY.RT #0 tabs 12/24/24 apixaban 5 mg tablet (Eliquis) 5 mg G-tube BID #0 tabs 12/24/24 carbamazepine 100 mg/5 mL oral suspension 200 mg (10 mL) G-tube 4X/DAY #0 mL 12/24/24 cholecalciferol (vitamin D3) 50 mcg (2,000 unit) tablet 50 mcg feeding tube DAILY SUPPLEMENT 30 days #30 tabs 12/24/24 clonidine 0.2 mg/24 hr weekly transdermal patch 0.2 mg transdermal Q7D #0 ea 12/24/24 ergocalciferol (vitamin D2) 1,250 mcg (50,000 unit) capsule (Vitamin D2) 1,250 mcg feeding tube Q7D SUPPLEMENT #0 caps 12/24/24 finasteride 5 mg tablet 5 mg feeding tube DAILY prostate 30 days #30 tabs 12/24/24 gabapentin 100 mg capsule 100 mg feeding tube DAILY PAIN 30 days #30 caps 12/24/24 ipratropium 0.5 mg-albuterol 3 mg (2.5 mg base)/3 mL nebulization soln 3 ml inhalation .q6hwa #0 mL 12/24/24 lactose-reduced food with fiber 0.06 gram-1.5 kcal/mL oral liquid (Jevity 1.5 Alex) 55 ml feeding tube .18hours #5,688 mL 12/24/24 lansoprazole 15 mg capsule,delayed release 15 mg feeding tube DAILY 30 days #30 caps 12/24/24 losartan 100 mg tablet 100 mg feeding tube DAILY Blood pressure 30 days #30 tabs 12/24/24 melatonin 3 mg tablet 3 mg G-tube QHS PRN PRN Insomnia #0 tabs 12/24/24 metoprolol tartrate 25 mg tablet 25 mg feeding tube DAILY Blood pressure 30 days #30 tabs 12/24/24 mirtazapine 15 mg tablet 15 mg feeding tube QHS anti depressant 30 days #30 tabs 12/24/24 prednisone 20 mg tablet 40 mg (2 x 20 mg) G-tube BREAKFAST 5 days #10 tabs 12/24/24 sertraline 100 mg tablet 100 mg feeding tube DAILY DEPRESSION 30 days #30 tabs 12/24/24 thiamine HCl (vitamin B1) 100 mg tablet 100 mg G-tube BREAKFAST #0 tabs 12/24/24 hydralazine 25 mg tablet 25 mg G-tube 4X/DAY #0 tabs 12/25/24 Hospital Course Operations None Procedures EKG and Peg tube placement Summary of Care Provided Minutes Spent on Discharge: 35 Hospital Course: The patient is a 74 y/o M w/ PMHx: Former EtOH abuse, PAD s/p peripheral PCI, PAF reporting that he is on chronic Coumadin therapy but verified this was not the case, HTN, HLD, Chronic anemia/Fe deficiency anemia, COPD/Asthma w/ Chronic Hypoxic Respiratory Failure (2L NC), Seizure disorder, CKD stage III unclear subtype or GFR trending, GERD, BPH with obstructive pathology, Anxiety and depression, PJ noncompliant with PAP therapy, Tobacco use, recent discharge 12/16/24 following evaluation and treatment of Acute COPD Exacerbation who re- presentED to the [facility] ED on 12/17/24 w/ severe dysarthria and right-sided facial droop with suspected CVA. Initial ED presentation with CT of the brain with no acute intracranial findings with cerebral atrophy, CTA head and neck with right and left ICA stenosis (right noted 75% stenosis, left noted 50% stenosis), MRI of the brain with focal restricted diffusion left periventricular deep white matter with multiple foci with the largest measuring 1.2 x 0.9 cm with associated increased T2 signal intermediate to decreased T1 signal consistent with subacute infarct, punctate foci restricted diffusion in the left precentral subcortical region with associated increased T2, decreased T1 signal consistent with subacute infarct, extensive abnormal increased T2 and flair signal throughout the deep white matter confluence in the periventricular regions consistent with chronic ischemic change, 3.1 x 1.5 cm arachnoid cyst in the medial left temporal tip, mucosal thickening of the right maxillary sinus. Patient with persistent ongoing global aphasia, right-sided facial droop unfortunately not extremely cooperative, suspected likely cardioembolic source as underlying PAF not chronically anticoagulated secondary to falls, currently on aspirin therapy but per neurology recommendation will very cautiously initiate Eliquis 5 mg p.o. twice daily following PEG placement which was discussed with gastroenterology given high risk however given fall risk was continue to assess risk and benefit. 12/23/2024 carotid ultrasound with moderate 50 to 69% stenosis of the right extracranial internal carotid and left extracranial internal carotid with patent antegrade vertebrals bilaterally. Refused EEG x 3. Vitamin B12 level normal limit at 774, initially received thiamine IV, transitioned to PEG version 12/24/24. 12/23/24 s/p PEG placement with following transition from DE ASA->eliquis, d/c IV keppra and resume liquid carbamazepine, transition to HTN regimen per PEG, added back statin per PEG. 12/25/2024 added hydralazine per PEG as BP still not within control with improvement but likely will need ongoing adjustment. Patient with recent COPD exacerbation during prior admission, initially during presentation maintained on Solu-Medrol 30 mg IV daily, 12/24/24 transitioned to prednisone 40 mg via PEG w/ planned 5 day burst taper at discharge. 12/26/2024 patient remained clinically appropriate and stable therefore discharged to SNF with planned follow-up with PCP, Neurology and Vascular Surgery. Weight / BMI Weight Weight: 160 lb 14.999 oz Body Mass Index (BMI) 24.5 ABG / Lab / Microbiology Data 12/26/24 06:37 12/26/24 06:37 Laboratory: Laboratory Results - last 24 hr 12/26/24 06:37: WBC 10.2, RBC 4.10 L, Hgb 11.3 L, Hct 35.8 L, MCV 87.3, MCH 27.6, MCHC 31.6 L, RDW Std Deviation 46.5 H, RDW Coeff of Aly 14.7 H, Plt Count 363, MPV 10.1, Immature Gran % (Auto) 0.500, Neut % (Auto) 84.7 H, Lymph % (Auto) 6.5 L, [place] % (Auto) 7.8, Eos % (Auto) 0.2, Baso % (Auto) 0.3, Absolute Neuts (auto) 8.7 H, Absolute Lymphs (auto) 0.66 L, Nucleated RBC % 0, Sodium 140, Potassium 3.4, Chloride 98, Carbon Dioxide 30.3, Anion Gap 12, BUN 15, Creatinine 1.07, Estim Creat Clear Calc 57.71, Est GFR (MDRD) Non-Af 72, BUN/Creatinine Ratio 14.4, Glucose 142 H, Calcium 9.7, Total Bilirubin 0.23, AST 22, ALT 19, Alkaline Phosphatase 67, Total Protein 6.0, Albumin 3.7, Globulin 2.3, Albumin/Globulin Ratio 1.6 Microbiology: Microbiology 12/19/24 10:00 Stool Enteric Bacteriology - Final 12/18/24 13:51 Stool Clostridioides difficile (PCR) - Final D/C Instructions DC O2, CPAP, BIPAP Needs Home O2 Discharge instructions: Yes Type of respiratory needs?: Oxygen Oxygen frequency: Continuous Continuous oxygen liters per minute: 2 DC home with Oxygen: Yes Home O2 MD Review: Patient on chronic oxygen supplementation 2-3 L which will be continued upon transition to SNF. Meaningful Use Info Meaningful Use Meaningful Use Diagnoses (Choose all that apply): Ischemic CVA CVA Therapy Assessed for PT,OT and/or ST?: Yes Ischemic Stroke Antithrombotic order at d/c?: Yes Dx of Atrial fib/flutter?: Yes Anticoagulant at discharge?: Yes Statin Dosing Therapy Reference: STATIN DOSE THERAPY REFERENCE: * Patients > 75 years receive moderate or high dose statin therapy. * Patients 75 years or YOUNGER should receive HIGH intensity statin dose unless contraindicated. You will be required to document reason for non-treatment if statin daily dose does not meet guidelines. HIGH DOSE STATIN THERAPY DAILY Atorvastatin > than or = to 40 mg Rosuvastatin > than or = to 20 mg Amlodipine + Atorvastatin > than or = to 2.5/40 mg Ezetimibe + Simvastatin 10/80 mg Simvastatin 80mg Statins at discharge?: Yes Primary Dx Acute Ischemic CVA?: Yes IV thrombolytic ordered during stay?: No Reason IV thrombolytic not ordered: Treatment not Indicated Discharge Plan Admission Admit Date/Time: 12/18/24 14:58 Primary Reason for Your Visit: Acute CVA, Severe Dysarthria, Dysphagia Attending Provider: Shilpa Contreras Primary Care Provider: Daija Douglas Consulting Providers: Aung Peres; Gogo Gill; Ryan Vargas; Tamika Xiao; Daylin Schmitt; Roman Patel; Chrystal Collier; Luan Mcgraw; Jo Hughes; JSOETTE CALDERON; Angelo Wiley; Neelam Almendarez; Lisha Talamantes Instructions Additional Instructions / Restrictions: ADDITIONAL DISCHARGE INSTRUCTIONS/INFORMATION: #1. Acute severe dysarthria and right-sided facial droop secondary to acute left MCA stroke: --CT of the brain with no acute intracranial findings with cerebral atrophy. --CTA head and neck with right and left ICA stenosis (right noted 75% stenosis, left noted 50% stenosis) with follow-up 12/23/2024 carotid ultrasound with moderate 50 to 69% stenosis of the right extracranial internal carotid and left extracranial internal carotid with patent antegrade vertebrals bilaterally. Will need outpatient follow-up with Vascular surgery as requested to monitor and re- evaluate. --MRI of the brain with focal restricted diffusion left periventricular deep white matter with multiple foci with the largest measuring 1.2 x 0.9 cm with associated increased T2 signal intermediate to decreased T1 signal consistent with subacute infarct, punctate foci restricted diffusion in the left precentral subcortical region with associated increased T2, decreased T1 signal consistent with subacute infarct, extensive abnormal increased T2 and flair signal throughout the deep white matter confluence in the periventricular regions consistent with chronic ischemic change, 3.1 x 1.5 cm arachnoid cyst in the medial left temporal tip, mucosal thickening of the right maxillary sinus. --s/p PEG tube placement on 12/23/24, initiated on tube feeds with nutrition consultation. Recommend continued nutrition consultation and evaluation at the nursing home facility for ongoing assessments and alteration to feedings as needed. --12/24/2024 initiated on Eliquis regimen with de-escalation off aspirin therapy per neurology recommendation with continued liquid carbamazepine, statin therapy, hypertensive regimen with alterations as needed to transition to PEG formulation. --Encouraged continued evaluation and monitoring of blood pressure with adjustment and alteration to regimen to maintain appropriate blood pressure parameters. #2. Recent Acute COPD Exacerbation w/ Chronic Hypoxic and Hypercarbic Respiratory Failure: --Recent presentation with exacerbation, transitioned initially to Solu-Medrol 30 mg IV daily w/ 12/24/24 transitioned to prednisone 40 mg via PEG w/ planned taper at discharge. --Will continue ATC DuoNeb therapy as well as as needed albuterol. --Continue supplemental oxygen currently 2 L nasal cannula which appears recent baseline. Discharge Orders/Prescriptions Prescriptions: New acetaminophen 325 mg Tablet 650 mg feeding tube Q6H PRN PRN (Reason: Pain 1-10 Or Fever>100.7) Qty: 0 0RF ipratropium-albuterol 0.5 mg-3 mg(2.5 mg base)/3 mL Solution For Nebulization 3 ml inhalation .q6hwa Qty: 0 0RF albuterol sulfate 2.5 mg /3 mL (0.083 %) Solution For Nebulization 2.5 mg inhalation Q4H PRN (Reason: DYSPNEA/WHEEZING/SOB) Qty: 0 0RF clonidine 0.2 mg/24 hr Patch Weekly 0.2 mg transdermal Q7D Qty: 0 0RF amlodipine 10 mg Tablet 10 mg G-tube DAILY.RT Qty: 0 0RF carbamazepine 100 mg/5 mL Suspension 200 mg G-tube 4X/DAY Qty: 0 0RF Eliquis 5 mg Tablet 5 mg G-tube BID Qty: 0 0RF melatonin 3 mg Tablet 3 mg G-tube QHS PRN PRN (Reason: Insomnia) Qty: 0 0RF prednisone 20 mg Tablet 40 mg G-tube BREAKFAST 5 Days Qty: 10 0RF thiamine HCl (vitamin B1) 100 mg Tablet 100 mg G-tube BREAKFAST Qty: 0 0RF Jevity 1.5 Alex 0.06 gram-1.5 kcal/mL liquid 55 ml feeding tube .18hours Qty: 5688 0RF Rx Instructions: Goal TF: 55 ml/hr to run for 18 hours/day. Upon SNF transition goal is to achieve this and would plan to increase by 10 ml/hr every 8-12 hours until achieve the goal of 55 ml/hr for the 18 hour run daily. Flush 165 ml free water every 4 hours. lansoprazole 15 mg capsule,delayed release(DR/EC) 15 mg feeding tube DAILY 30 Days Qty: 30 0RF hydralazine 25 mg Tablet 25 mg G-tube 4X/DAY Qty: 0 0RF Continued atorvastatin 40 MG tablet 40 mg PO QHS Patient Comments: CHOLESTEROL alendronate 70 mg tablet 70 mg PO QWEEK Qty: 1 0RF clonidine 0.2 mg/24 hr patch weekly 1 patch topical QWEEK Patient Comments: HAS ONE ON NOW Changed sertraline 100 mg tablet 100 mg feeding tube DAILY 30 Days Qty: 30 0RF mirtazapine 15 MG tablet 15 mg feeding tube QHS 30 Days Qty: 30 0RF gabapentin 100 mg capsule 100 mg feeding tube DAILY 30 Days Qty: 30 0RF ergocalciferol (vitamin D2) [Vitamin D2] 1,250 mcg (50,000 unit) Capsule 1,250 mcg feeding tube Q7D Qty: 0 0RF losartan 100 mg tablet 100 mg feeding tube DAILY 30 Days Qty: 30 0RF finasteride 5 MG tablet 5 mg feeding tube DAILY 30 Days Qty: 30 0RF Patient Comments: prostate metoprolol tartrate 25 mg tablet 25 mg feeding tube DAILY 30 Days Qty: 30 0RF cholecalciferol (vitamin D3) 50 mcg (2,000 unit) tablet 50 mcg feeding tube DAILY 30 Days Qty: 30 0RF Discontinued albuterol sulfate 90 mcg/actuation HFA aerosol inhaler 1 puff inhalation Q8H carbamazepine 200 mg tablet extended release 12 hr 200 mg PO Q12H tamsulosin 0.4 MG capsule 0.4 mg PO QHS Patient Comments: Prostate and urine clopidogrel 75 MG tablet 75 mg PO DAILY pantoprazole 40 mg tablet,delayed release (DR/EC) 40 mg PO DAILY nifedipine 90 mg tablet extended release 90 mg PO DAILY sennosides-docusate sodium [Stool Softener-Stimulant Laxat] 8.6-50 mg Tablet 2 tab PO BID PRN PRN (Reason: Constipation) Qty: 0 0RF albuterol sulfate 2.5 mg /3 mL (0.083 %) solution for nebulization 2.5 mg continuous nebulization DAILY Patient Comments: [NO ORIGINAL SIG] acetaminophen 500 mg Tablet 1,000 mg PO Q8 PRN (Reason: fever or pain) prednisone 10 mg tablet 10 mg PO DAILY Qty: 40 0RF Rx Instructions: 4 tablets x 4 days, 3 tablets x 4 days, 2 tablets x 4 days, 1 tablet x 4 days nicotine [Nicoderm CQ] 21 mg/24 hr patch 24 hour 1 patch transdermal DAILY Qty: 14 0RF clonidine HCl 0.1 mg Tablet 0.1 mg PO TID Qty: 0 0RF Rx Instructions: Hold for heart less than 50 or systolic blood pressure less than 140 mmHg. dextromethorphan-guaifenesin 60-1,200 mg tablet extended release 12 hr 1 tab PO BID 7 Days Qty: 14 0RF nicotine 14 mg/24 hr Patch 24 Hour 14 mg transdermal DAILY 28 Days Qty: 28 0RF prednisone 20 mg Tablet 40 mg PO BREAKFAST 1 Days Qty: 2 0RF Rx Instructions: For 1 more day tomorrow 09/03/2024 Referrals / Follow Up: Daija Douglas MD [Primary Care Provider] - (Follow-up within 1-2 weeks following discharge to review admission.) Raul Jensen MD [Med Staff - Active Staff] - (Follow-up in 2-4 weeks for evaluation notable carotid disease to continue to monitor.) Korey Gibbs MD [Non-Staff -Ordering Privileges] - (Follow-up with Neurology, may see QUANTITATIVE RESEARCH ANALYST within 2-4 weeks of discharge.) Disposition Disposition (needs filled in before D/C Order can be placed): Intermediate Facility Charges/Coding Visit Charges Inpatient E&M: 92892 Disch Hosp >30min
--- NOTE | 2024-12-26 15:46 | CASEMGMT ---
Social Work Precert has been obtained.? Physician updated and pt is ready for discharge today.? 7000 exemption form completed in [facility] and sent along with discharge orders to [facility] via [facility].? Transportation arranged with Physician ambulance for 6:30 pickup via cot.? SW updated pt LILIAN Bhakta of dc plan. Bedside nurse notified of discharge time. Disposition:? [facility], skilled level of care under hospital exemption SHANE Tinoco
== END 2024-12-26 18:40 | disposition skilled nursing facility (03) | DRG 65 ==
LOC: ED 17:50 → PCU 17:55
PROVIDERS: Internal Medicine; Internal Medicine Gastroenterology; Admitting Provider Hospitalist; Emergency Provider Emergency Medicine; PCP Internal Medicine; Visit Provider Family Medicine
PROC: 0DJ08ZZ Inspection of Upper Intestinal Tract, Via Natural or Artificial Opening Endoscopic (ICD-10-PCS; CPT 43235; principal; 2024-12-23 14:10)
DX: I63.512 Cerebral infarction due to unspecified occlusion or stenosis of left middle cerebral artery (principal); J96.11 Chronic respiratory failure with hypoxia; F02.811 Dementia in other diseases classified elsewhere, unspecified severity, with agitation; J96.12 Chronic respiratory failure with hypercapnia; N13.8 Other obstructive and reflux uropathy; F02.84 Dementia in other diseases classified elsewhere, unspecified severity, with anxiety; F02.83 Dementia in other diseases classified elsewhere, unspecified severity, with mood disturbance; R13.10 Dysphagia, unspecified; R62.7 Adult failure to thrive; Z99.81 Dependence on supplemental oxygen; I48.0 Paroxysmal atrial fibrillation; R47.01 Aphasia; J44.9 Chronic obstructive pulmonary disease, unspecified; G40.909 Epilepsy, unspecified, not intractable, without status epilepticus; I73.9 Peripheral vascular disease, unspecified; D50.9 Iron deficiency anemia, unspecified; I65.23 Occlusion and stenosis of bilateral carotid arteries; I12.9 Hypertensive chronic kidney disease with stage 1 through stage 4 chronic kidney disease, or unspecified chronic kidney disease; G30.9 Alzheimer's disease, unspecified; E78.5 Hyperlipidemia, unspecified; F17.210 Nicotine dependence, cigarettes, uncomplicated; G47.33 Obstructive sleep apnea (adult) (pediatric); I25.10 Atherosclerotic heart disease of native coronary artery without angina pectoris; K21.9 Gastro-esophageal reflux disease without esophagitis; H54.7 Unspecified visual loss; N18.2 Chronic kidney disease, stage 2 (mild); K52.9 Noninfective gastroenteritis and colitis, unspecified; N40.1 Benign prostatic hyperplasia with lower urinary tract symptoms; R29.710 NIHSS score 10; R29.810 Facial weakness; M81.0 Age-related osteoporosis without current pathological fracture; R47.1 Dysarthria and anarthria; R53.81 Other malaise; Z53.29 Procedure and treatment not carried out because of patient's decision for other reasons; Z87.19 Personal history of other diseases of the digestive system; Z79.51 Long term (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 of inhaled steroids; Z79.02 Long term (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 of antithrombotics/antiplatelets; Z79.899 Other long term (current) drug therapy; Z91.148 Patient's other noncompliance with medication regimen for other reason; Z87.898 Personal history of other specified conditions; Z91.199 Patient's noncompliance with other medical treatment and regimen due to unspecified reason; Z68.24 Body mass index [BMI] 24.0-24.9, adult; Z95.5 Presence of coronary angioplasty implant and graft; Z90.49 Acquired absence of other specified parts of digestive tract
CPT/HCPCS: 36415; 70450; 70496; 70498; 70551; 71046; 80048; 80053; 82607; 83036; 83735; 84100; 84443; 84484; 85025; 85027; 85610; 85730; 87493; 87506; 92507; 92523; 92526; 92610; 93005; 93308; 93880; 94640; 94762; 97110; 97116; 97162; 97167; 97530; 97535; 97802; 97803; 99285; Q9967; A4216; J2405

== ENCOUNTER 2025-01-03 06:24 | Emergency (ER) | payer MEDICARE, MEDICAID, SELFPAY ==
[2025-01-03 06:27] VITALS: BP 150/69; PULSE 54; RESP 16; TEMP 36.4; O2SAT 95; BMI 20.4
--- NOTE | 2025-01-03 06:38 | CT_ITS ---
PROCEDURE: SPINE CERVICAL WITHOUT CONTRAS 01/03/2025 REASON FOR EXAM: HEAD INJURY TECHNIQUE: SPINE CERVICAL WITHOUT CONTRAS Coronal and Sagittal reconstruction series were provided. One or more dose reduction techniques were used (e.g., Automated exposure control, adjustment of the mA and/or kV according to patient size, use of iterative reconstruction technique. RADIATION DOSE SUMMARY: CTDlvol: 16.69 mGy DLP: 336.53 mGycm COMPARISON: Prior study dated April 06, 2024. FINDINGS: Alignment: Exaggerated cervical lordosis Vertebrae: Vertebral heights are well-maintained. Spondylosis at C5-C6 C6-C7 levels. Soft Tissues: Atherosclerotic calcification of the carotid bifurcations. Other: 8.9 mm spiculated density in the right lung apex. This may represent an area of scarring. This was not imaged on prior study. C1-2: Unremarkable C2-3: Mild degree of disc space narrowing. Uncovertebral arthrosis. Mild bilateral neural foraminal stenosis slightly worse on the left side. C3-4: Disc space is well-maintained. Facet joint osteoarthritis and hypertrophy. No significant stenosis seen. C4-5: Mild degree of disc space narrowing. Uncovertebral arthrosis. Facet joint osteoarthritis. Mild bilateral neural foraminal stenosis. C5-6: Marked degree of disc space narrowing. Spondylosis. Uncovertebral arthrosis. Facet joint osteoarthritis. Moderate degree of bilateral neural foraminal stenosis. C6-7: Moderate degree of disc space narrowing. Spondylosis. Facet joint osteoarthritis. Uncovertebral arthrosis. Bilateral neural foraminal stenosis. C7-T1: Unremarkable CT/Spine Cervical without Contras IMPRESSION: DEGENERATIVE CHANGES OF THE CERVICAL SPINE. NO EVIDENCE OF SIGNIFICANT OSSEOUS CENTRAL CANAL OR NEURAL FORAMINAL STENOSIS. Reading Location: [place] [id number]
--- NOTE | 2025-01-03 06:38 | RAD_ITS ---
PROCEDURE: PELVIS 1 OR 2 VIEWS 01/03/2025 REASON FOR EXAM: FALL TECHNIQUE: PELVIS 1 OR 2 VIEWS COMPARISON: None FINDINGS: Hardware: Patient is status post aortobifemoral graft with stents. Bones: Old healed fractures of the right superior and inferior pubic rami. No acute fracture is seen. There is a 1.4 cm sclerotic focus in the medial aspect of the right iliac bone. This may represent a bone island. Joints: Osteoarthritis of both hip joints. soft tissues: Surgical clips are seen in the left groin. Other: RAD/Pelvis 1 or 2 Views IMPRESSION: No acute fracture is seen. Reading Location: [place] [id number]
--- NOTE | 2025-01-03 06:39 | EDS_ITS ---
HPI History of Present Illness Chief Complaint: Fall Informant: EMS and SNF Narrative Narrative: Patient is a 74-year-old male with past medical history of hypertension COPD and recent CVA currently on Eliquis. He has aphasia and permanent weakness secondary to the recent stroke. 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 long term states that this morning he fell out of bed and dislodged his PEG tube. long term states he is at his baseline mental status and they do not see any obvious signs of trauma but as he fell is on a blood thinner and dislodged his PEG tube was sent into the hospital for evaluation. The patient cannot offer any further history based on his aphasia/mute status [facility] Medical History Acute CVA (cerebrovascular accident) Aphasia Hypertension Weakness Debility Failure to thrive Compression fx, lumbar spine Hypertension Falls Hypertension Closed fracture of right superior pubic ramus Multiple falls Compression fracture of thoracic vertebra History of atrial fibrillation Iron deficiency anemia Chronic respiratory failure with hypoxia Osteoporosis Lumbar compression fracture Compression fracture Obstructive sleep apnea Hyperlipidemia Asthma Peripheral arterial occlusive disease Seizure disorder Chronic obstructive pulmonary disease Coronary artery disease Lupus anticoagulant disorder BPH (benign prostatic hyperplasia) Ulcerative colitis Peripheral vascular disease Anxiety COPD (chronic obstructive pulmonary disease) with emphysema Closed fracture of right inferior pubic ramus Acute UTI COPD (chronic obstructive pulmonary disease) UTI (urinary tract infection) Depression Diabetes Kidney stones Chronic pain Pancreatitis On home oxygen therapy Irregular heart beat Atrial fibrillation Stroke/cerebrovascular accident Smoker Falls frequently Seizures Sleep apnea COPD (chronic obstructive pulmonary disease) Asthma High cholesterol Tobacco abuse Home Medications ?Medication ?Instructions ?Recorded ?Last Taken ?Type atorvastatin 40 mg tablet 40 mg PO QHS Cholesterol 12/0212/12/24 History alendronate 70 mg tablet 70 mg PO QWEEK OSTEOPROSIS # 1 TAB 11/30/21 12/09/24 Rx acetaminophen 325 mg tablet 650 mg (2 x 325 mg) feedin g tube 12/24/24 Unknown Rx Q6H PRN PRN Pain 1-10 Or Fever>100.7 #0 tabs albuterol sulfate 2.5 mg/3 mL 2.5 mg (3 mL) inhalation Q4H PRN 12/24/24 Unknown Rx (0.083 %) solution for nebulization DYSPNEA/WHEEZING/S OB #0 mL amlodipine 10 mg tablet 10 mg G-tube DAILY.RT #0 tab s 12/24/24 Unknown Rx carbamazepine 100 mg/5 mL oral 200 mg (10 mL) G-tube 4 X/DAY #0 mL 12/24/24 Unknown Rx suspension cholecalciferol (vitamin D3) 50 50 mcg feeding tube DA KATHERINE 12/24/24 12/13/24 Rx mcg (2,000 unit) tablet SUPPLEMENT 30 days #30 tabs clonidine 0.2 mg/24 hr weekly 0.2 mg transdermal Q7D # 0 ea 12/24/24 Unknown Rx transdermal patch ergocalciferol (vitamin D2) 1,250 1,250 mcg feeding tu be Q7D 12/24/24 12/13/24 08:58 Rx mcg (50,000 unit) capsule (Vitamin SUPPLEMENT #0 caps D2) finasteride 5 mg tablet 5 mg feeding tube DAILY pros jasso 12/24/24 12/13/24 08:58 Rx 30 days #30 tabs gabapentin 100 mg capsule 100 mg feeding tube DAILY PA IN 30 12/24/24 12/13/24 08:58 Rx days #30 caps ipratropium 0.5 mg-albuterol 3 mg 3 ml inhalation .q6h wa #0 mL 12/24/24 Unknown Rx (2.5 mg base)/3 mL nebulization soln lactose-reduced food with fiber 55 ml feeding tube .18 hours #5,688 12/24/24 Unknown Rx 0.06 gram-1.5 kcal/mL oral liquid mL (Jevity 1.5 Alex) losartan 100 mg tablet 100 mg feeding tube DAILY Bl ood 12/24/24 12/13/24 08:58 Rx pressure 30 days #30 tabs melatonin 3 mg tablet 3 mg G-tube QHS PRN PRN Inso mnia 12/24/24 Unknown Rx #0 tabs mirtazapine 15 mg tablet 15 mg feeding tube QHS anti 12/24/24 12/12/24 20:59 Rx depressant 30 days #30 tabs prednisone 20 mg tablet 40 mg (2 x 20 mg) G-tube ZELDA AKFAST 12/24/24 Unknown Rx 5 days #10 tabs sertraline 100 mg tablet 100 mg feeding tube DAILY Unknown Rx DEPRESSION 30 days #30 tabs thiamine HCl (vitamin B1) 100 mg 100 mg G-tube BREAKFA ST #0 tabs 12/24/24 Unknown Rx tablet apixaban 5 mg tablet (Eliquis) 5 mg PO BID 01/03/25 Un known History atorvastatin 40 mg tablet (Lipitor) 40 mg PO DAILY Unknown History hydralazine 25 mg tablet 50 mg G-tube 3XD 01/03/25 Un known History metoprolol tartrate 25 mg tablet 50 mg feeding tube BI D Blood 01/03/25 Unknown History pressure pantoprazole 40 mg granules 40 mg PO DAILY 01/03/25 Un known History delayed-release for susp in packet (Protonix) Allergy/AdvReac Type Severity Reaction Status Date / Time No Known Allergies Allergy Verified 01/03/25 06:32 Family History Mother Heart disease CVA (cerebral vascular accident) Hypertension Father Heart disease CVA (cerebral vascular accident) Hypertension Surgical History S/P arterial stent History of appendectomy Social History household members: family 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 Smoking Status: Current every day smoker tobacco type: cigarettes alcohol intake: former details: Former alcoholic quit several years ago substance use type: does not use caffeine: Yes Type: coffee Number of servings: 3 ROS ROS ED ROS Narrative Unable to obtain review of systems secondary to history of CVA and aphasia Review of Systems ROS Unobtainable: due to mental status EXAM Physical Exam Const Vital Signs: 01/03/25 06:27 01/03/25 06:30 Temperature 97.6 F L Temperature Source Oral Pulse Rate 54 L Respiratory Rate 16 Respiratory Effort Normal Blood Pressure 150/69 H Blood Pressure Mean 96 Pulse Ox 95 Oxygen Delivery Method Room Air Room Air Positive well nourished and well developed General Appearance ED: well developed HEENT HEENT Narrative: Normocephalic atraumatic No signs of depressed or basilar skull fracture Eyes PERRL and EOMs intact bilaterally General Eye ED: Negative for scleral icterus Neck supple Neck Narrative: No bony deformity or step-off of the cervical spine Chest Wall palpation of chest normal Chest Narrative: No bony deformity or crepitance Resp normal respiratory effort Resp Narrative: Breath sounds are diminished throughout with faint expiratory wheeze in the bilateral bases consistent with history of COPD but no signs of respiratory distress Cardio regular rhythm Rate: bradycardia and other Other Details: Bradycardic rate with regular rhythm GI non-distended and no masses GI Narrative: Abdomen is soft and nondistended with normal active bowel sounds There is a hole in the upper mid abdomen consistent with recent PEG tube insertion site. 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 No new or focal deficit at this time Sensorium / Orientation: alert Skin Skin Narrative: No abrasions or ecchymosis noted secondary to the fall Abdominal opening with bleeding consistent with recent PEG tube insertion site and traumatic removal. MDM MDM MDM Narrative Medical decision making narrative: Patient arrived to the ER hypertensive but has a past medical history of this and otherwise stable vitals. He is at his baseline mental status per [facility]. Nursing reported he fell out of bed and dislodged his PEG tube. Chart review reveals he is on Eliquis and is a DNR Comfort Care arrest. With the blood thinner on board in the fall there is concern for a traumatic subarachnoid or subdural hemorrhage so therefore a CT was obtained. There is also concern for potential cervical compression fracture or spondylolisthesis so the CT was continued through the cervical spine. There is no obvious signs of pubic rami or femoral neck fracture but as the patient is mute and fell a x-ray will be obtained to rule this out as well. Imaging studies revealed no signs of acute bleed compression fracture or pelvic fracture. The nursing was contacted and they state that the patient's PEG tube is a 20 Turkmen. Therefore we will obtain a similar size in the ER and attempt to replace the PEG tube at this time. The replacement of the PEG tube and imaging studies are still pending and therefore patient be signed out to Dr. Jauregui. I do feel that if all images are negative patient will be safe to return to the [facility] once the PEG tube has been replaced. 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, CVA (cerebral vascular accident), COPD (chronic obstructive pulmonary disease), Hypertension Instructions: Anticoagulants, ED Head Injury (Adult) Prescriptions: No Action atorvastatin 40 MG tablet 40 mg PO QHS Patient Comments: CHOLESTEROL alendronate 70 mg tablet 70 mg PO QWEEK Qty: 1 0RF acetaminophen 325 mg Tablet 650 mg feeding tube Q6H PRN PRN (Reason: Pain 1-10 Or Fever>100.7) Qty: 0 0RF ipratropium-albuterol 0.5 mg-3 mg(2.5 mg base)/3 mL Solution For Nebulization 3 ml inhalation .q6hwa Qty: 0 0RF albuterol sulfate 2.5 mg /3 mL (0.083 %) Solution For Nebulization 2.5 mg inhalation Q4H PRN (Reason: DYSPNEA/WHEEZING/SOB) Qty: 0 0RF clonidine 0.2 mg/24 hr Patch Weekly 0.2 mg transdermal Q7D Qty: 0 0RF amlodipine 10 mg Tablet 10 mg G-tube DAILY.RT Qty: 0 0RF carbamazepine 100 mg/5 mL Suspension 200 mg G-tube 4X/DAY Qty: 0 0RF melatonin 3 mg Tablet 3 mg G-tube QHS PRN PRN (Reason: Insomnia) Qty: 0 0RF prednisone 20 mg Tablet 40 mg G-tube BREAKFAST 5 Days Qty: 10 0RF thiamine HCl (vitamin B1) 100 mg Tablet 100 mg G-tube BREAKFAST Qty: 0 0RF Jevity 1.5 Alex 0.06 gram-1.5 kcal/mL liquid 55 ml feeding tube .18hours Qty: 5688 0RF Rx Instructions: Goal TF: 55 ml/hr to run for 18 hours/day. Upon SNF transition goal is to achieve this and would plan to increase by 10 ml/hr every 8-12 hours until achieve the goal of 55 ml/hr for the 18 hour run daily. Flush 165 ml free water every 4 hours. sertraline 100 mg tablet 100 mg feeding tube DAILY 30 Days Qty: 30 0RF mirtazapine 15 MG tablet 15 mg feeding tube QHS 30 Days Qty: 30 0RF gabapentin 100 mg capsule 100 mg feeding tube DAILY 30 Days Qty: 30 0RF ergocalciferol (vitamin D2) [Vitamin D2] 1,250 mcg (50,000 unit) Capsule 1,250 mcg feeding tube Q7D Qty: 0 0RF losartan 100 mg tablet 100 mg feeding tube DAILY 30 Days Qty: 30 0RF finasteride 5 MG tablet 5 mg feeding tube DAILY 30 Days Qty: 30 0RF Patient Comments: prostate cholecalciferol (vitamin D3) 50 mcg (2,000 unit) tablet 50 mcg feeding tube DAILY 30 Days Qty: 30 0RF atorvastatin [Lipitor] 40 mg tablet 40 mg PO DAILY Eliquis 5 mg tablet 5 mg PO BID pantoprazole [Protonix] [address] for susp in packet 40 mg PO DAILY hydralazine 25 mg Tablet 50 mg G-tube 3XD metoprolol tartrate 25 mg tablet 50 mg feeding tube BID Primary Care Provider: Daija Douglas Referrals: Daija Douglas MD [Primary Care Provider] - Print Language: Mohawk
--- OUTSIDE RECORDS SUMMARY | 2025-01-03 06:53 | XMS RPT_ITS | CCD ---
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 Normal <=37 [facility] Comment on above: Performed By: #### L 100.0100, L501.5200, L500.4050 ####[facility] [address] [place], [address] Bilirubin [Mass/Vol] 0.23 mg/dL Normal 0.00-1.30 [facility] Comment on above: Performed By: #### L 100.0100, L501.5200, L500.4050 ####[facility] [address] [place], [address] BUN/CRE 13.4 RATIO Normal 10-20 [facility] Comment on above: Performed By: #### L 100.0100, L501.5200, L500.4050 ####[facility] [address] [place], [address] Calcium [Mass/Vol] 9.5 mg/dL Normal 7.6-11.0 [facility] Comment on above: Performed By: #### L 100.0100, L501.5200, L500.4050 ####[facility] [address] [place], [address] Chloride [Moles/Vol] 101 mmol/L Normal 98-108 [facility] Comment on above: Performed By: #### L 100.0100, L501.5200, L500.4050 ####[facility] [address] [place], [address] CO2 [Moles/Vol] 27.5 mmol/L Normal 21.0-32.0 [facility] Comment on above: Performed By: #### L 100.0100, L501.5200, L500.4050 ####[facility] [address] [place], [address] Creatinine [Mass/Vol] 1.05 mg/dL Normal 0.70-1.20 [facility] Comment on above: Performed By: #### L 100.0100, L501.5200, L500.4050 ####[facility] [address] [place], [address] ECRCL 58.81 ml/min Normal 50-250 [facility] Comment on above: Performed By: #### L 100.0100, L501.5200, L500.4050 ####[facility] [address] [place], [address] GAP 12 Normal 5-15 [facility] Comment on above: Performed By: #### L 100.0100, L501.5200, L500.4050 ####[facility] [address] [place], [address] GFR/1.73 sq M.predicted among non-blacks MDRD (S/P/Bld) [Vol rate/Area] 74 mL/min/{1.73_m2} Normal >60 [facility] Comment on above: Result Comment: mL/m in/1.73m2 CKD-EPI Creatinine Equation (2020) Performed By: #### L 100.0100, L501.5200, L500.4050 ####[facility] [address] [place], [address] Globulin (S) [Mass/Vol] 2.7 g/dL Normal 2.2-4.2 [facility] Comment on above: Performed By: #### L 100.0100, L501.5200, L500.4050 ####[facility] [address] [place], [address] Glucose [Mass/Vol] 118 mg/dL High 70-99 [facility] Comment on above: Performed By: #### L 100.0100, L501.5200, L500.4050 ####[facility] [address] [place], [address] Potassium [Moles/Vol] 3.3 mmol/L Normal 3.3-5.1 [facility] Comment on above: Performed By: #### L 100.0100, L501.5200, L500.4050 ####[facility] [address] [place], [address] Sodium [Moles/Vol] 141 mmol/L Normal 133-145 [facility] Comment on above: Performed By: #### L 100.0100, L501.5200, L500.4050 ####[facility] [address] [place], [address] T PROT 6.7 g/dL Normal 5.9-8.4 [facility] Comment on above: Performed By: #### L 100.0100, L501.5200, L500.4050 ####[facility] [address] [place], [address] Urea nitrogen [Mass/Vol] 14 mg/dL Normal 4-19 [facility] Comment on above: Performed By: #### L 100.0100, L501.5200, L500.4050 ####[facility] [address] [place], [address] Magnesiumon 12-25-2024 Magnesium [Mass/Vol] 2.3 mg/dL High 1.5-2.2 [facility] Comment on above: Performed By: #### L 100.0100, L501.5200, L500.4050 ####[facility] [address] [place], [address] Magnesium measurement (mass/ volume)Ordered By: Sania Peña on 12-25-2024 Magnesium (Unsp spec) [Mass/Vol] 2.3 mg/dL High 1.5-2.2 [facility] Phosphoruson 07-09-2025 Phosphate [Mass/Vol] 2.0 mg/dL Low 2.7-4.5 [facility] Comment on above: Performed By: #### L 501.2300 ####[facility] [address] [place], [address] CBC W/Diff, Automatedon 07-0 8-2025 Absolute Lymph 0.72 X10 3/uL Low 0.83-4.51 [facility] Comment on above: Performed By: #### L 100.0100, L500.4050 ####[facility] [address] [place], [address] Absolute Neut 7.0 X10 3/uL Normal 2.0-7.7 [facility] Comment on above: Performed By: #### L 100.0100, L500.4050 ####[facility] [address] [place], [address] Basophils/100 WBC (Bld) 0.5 % Normal 0-1 [facility] Comment on above: Performed By: #### L 100.0100, L500.4050 ####[facility] [address] [place], [address] Eosinophils/100 WBC (Bld) 0.4 % Normal 0-5 [facility] Comment on above: Performed By: #### L 100.0100, L500.4050 ####[facility] [address] [place], [address] Erythrocyte distribution width (RBC) [Ratio] 14.6 % Normal 11.6-14.6 [facility] Comment on above: Performed By: #### L 100.0100, L500.4050 ####[facility] [address] [place], [address] Hematocrit (Bld) [Volume fraction] 37.0 % Low 40-54 [facility] Comment on above: Performed By: #### L 100.0100, L500.4050 ####[facility] [address] [place], [address] Hemoglobin (Bld) [Mass/Vol] 11.5 g/dL Low 13.0-16.5 [facility] Comment on above: Performed By: #### L 100.0100, L500.4050 ####[facility] [address] [place], [address] IG% 0.500 Normal 0.0-0.9 [facility] Comment on above: Result Comment: IG% - Immature Granulocytes (promyelocytes, myelocytes andmetamyelocytes) > 1% indicates that a LEFT SHIFT is Present. Performed By: #### L 100.0100, L500.4050 ####[facility] [address] [place], [address] Lymphocytes/100 WBC (Bld) 8.5 % Low 19-41 [facility] Comment on above: Performed By: #### L 100.0100, L500.4050 ####[facility] [address] [place], [address] MCH (RBC) [Entitic mass] 27.7 pg Normal 27.0-32.0 [facility] Comment on above: Performed By: #### L 100.0100, L500.4050 ####[facility] [address] [place], [address] MCHC (RBC) [Mass/Vol] 31.1 g/dL Low 32-36 [facility] Comment on above: Performed By: #### L 100.0100, L500.4050 ####[facility] [address] [place], [address] MCV (RBC) [Entitic vol] 89.2 fL Normal 80-94 [facility] Comment on above: Performed By: #### L 100.0100, L500.4050 ####[facility] [address] [place], [address] Monocytes/100 WBC (Bld) 7.7 % Normal 0-10 [facility] Comment on above: Performed By: #### L 100.0100, L500.4050 ####[facility] [address] [place], [address] Neutrophils/100 WBC (Bld) 82.4 % High 47-70 [facility] Comment on above: Performed By: #### L 100.0100, L500.4050 ####[facility] [address] [place], [address] Nucleated RBC (Bld) [#/Vol] 0 10*3/uL Normal 0-5 [facility] Comment on above: Performed By: #### L 100.0100, L500.4050 ####[facility] [address] [place], [address] Platelet mean volume (Bld) [Entitic vol] 9.7 fL Normal 6.2-12.0 [facility] Comment on above: Performed By: #### L 100.0100, L500.4050 ####[facility] [address] [place], [address] Platelets (Bld) [#/Vol] 380 10*3/uL Normal 150-450 [facility] Comment on above: Performed By: #### L 100.0100, L500.4050 ####[facility] [address] [place], [address] RBC (Bld) [#/Vol] 4.15 10*6/uL Low 4.6-6.2 [facility] Comment on above: Performed By: #### L 100.0100, L500.4050 ####[facility] [address] [place], [address] RDW SD 46.6 fl High 35.1-43.9 [facility] Comment on above: Performed By: #### L 100.0100, L500.4050 ####[facility] [address] [place], [address] WBC (Bld) [#/Vol] 8.5 10*3/uL Normal 4.4-11.0 [facility] Comment on above: Performed By: #### L 100.0100, L500.4050 ####[facility] [address] [place], [address] Comprehensive Metabolic Prof ilon 12-24-2024 Albumin [Mass/Vol] 3.8 g/dL Normal 3.4-4.8 [facility] Comment on above: Performed By: #### L 100.0100, L500.4050 ####[facility] [address] [place], [address] Albumin/Globulin [Mass ratio] 1.8 {ratio} Normal 0.9-2.4 [facility] Comment on above: Performed By: #### L 100.0100, L500.4050 ####[facility] [address] [place], [address] ALK PHOS 64 U/L Normal 40-129 [facility] Comment on above: Performed By: #### L 100.0100, L500.4050 ####[facility] [address] [place], [address] ALT [Catalytic activity/Vol] 28 U/L Normal <=46 [facility] Comment on above: Performed By: #### L 100.0100, L500.4050 ####[facility] [address] [place], [address] AST [Catalytic activity/Vol] 23 U/L Normal <=37 [facility] Comment on above: Performed By: #### L 100.0100, L500.4050 ####[facility] [address] [place], [address] Bilirubin [Mass/Vol] 0.25 mg/dL Normal 0.00-1.30 [facility] Comment on above: Performed By: #### L 100.0100, L500.4050 ####[facility] [address] [place], [address] BUN/CRE 16.9 RATIO Normal 10-20 [facility] Comment on above: Performed By: #### L 100.0100, L500.4050 ####[facility] [address] [place], [address] Calcium [Mass/Vol] 8.4 mg/dL Normal 7.6-11.0 [facility] Comment on above: Performed By: #### L 100.0100, L500.4050 ####[facility] [address] [place], [address] Chloride [Moles/Vol] 106 mmol/L Normal 98-108 [facility] Comment on above: Performed By: #### L 100.0100, L500.4050 ####[facility] [address] [place], [address] CO2 [Moles/Vol] 23.1 mmol/L Normal 21.0-32.0 [facility] Comment on above: Performed By: #### L 100.0100, L500.4050 ####[facility] [address] [place], [address] Creatinine [Mass/Vol] 0.98 mg/dL Normal 0.70-1.20 [facility] Comment on above: Performed By: #### L 100.0100, L500.4050 ####[facility] [address] [place], [address] ECRCL 63.01 ml/min Normal 50-250 [facility] Comment on above: Performed By: #### L 100.0100, L500.4050 ####[facility] [address] [place], [address] GAP 11 Normal 5-15 [facility] Comment on above: Performed By: #### L 100.0100, L500.4050 ####[facility] [address] [place], [address] GFR/1.73 sq M.predicted among non-blacks MDRD (S/P/Bld) [Vol rate/Area] 81 mL/min/{1.73_m2} Normal >60 [facility] Comment on above: Result Comment: mL/m in/1.73m2 CKD-EPI Creatinine Equation (2020) Performed By: #### L 100.0100, L500.4050 ####[facility] [address] [place], [address] Globulin (S) [Mass/Vol] 2.2 g/dL Normal 2.2-4.2 [facility] Comment on above: Performed By: #### L 100.0100, L500.4050 ####[facility] [address] [place], [address] Glucose [Mass/Vol] 92 mg/dL Normal 70-99 [facility] Comment on above: Performed By: #### L 100.0100, L500.4050 ####[facility] [address] [place], [address] Potassium [Moles/Vol] 3.9 mmol/L Normal 3.3-5.1 [facility] Comment on above: Performed By: #### L 100.0100, L500.4050 ####[facility] [address] [place], [address] Sodium [Moles/Vol] 140 mmol/L Normal 133-145 [facility] Comment on above: Performed By: #### L 100.0100, L500.4050 ####[facility] [address] [place], [address] T PROT 6.0 g/dL Normal 5.9-8.4 [facility] Comment on above: Performed By: #### L 100.0100, L500.4050 ####[facility] [address] [place], [address] Urea nitrogen [Mass/Vol] 17 mg/dL Normal 4-19 [facility] Comment on above: Performed By: #### L 100.0100, L500.4050 ####[facility] [address] [place], [address] Basic Metabolic Profile (BMP )on 12-23-2024 BUN/CRE 16.4 RATIO Normal 10-20 [facility] Comment on above: Performed By: #### L 500.2500, L100.0500 ####[facility] [address] [place], [address] Calcium [Mass/Vol] 8.4 mg/dL Normal 7.6-11.0 [facility] Comment on above: Performed By: #### L 500.2500, L100.0500 ####[facility] [address] [place], [address] Chloride [Moles/Vol] 104 mmol/L Normal 98-108 [facility] Comment on above: Performed By: #### L 500.2500, L100.0500 ####[facility] [address] [place], [address] CO2 [Moles/Vol] 24.1 mmol/L Normal 21.0-32.0 [facility] Comment on above: Performed By: #### L 500.2500, L100.0500 ####[facility] [address] [place], [address] Creatinine [Mass/Vol] 1.02 mg/dL Normal 0.70-1.20 [facility] Comment on above: Performed By: #### L 500.2500, L100.0500 ####[facility] [address] [place], [address] ECRCL 60.54 ml/min Normal 50-250 [facility] Comment on above: Performed By: #### L 500.2500, L100.0500 ####[facility] [address] [place], [address] GAP 11 Normal 5-15 [facility] Comment on above: Performed By: #### L 500.2500, L100.0500 ####[facility] [address] [place], [address] GFR/1.73 sq M.predicted among non-blacks MDRD (S/P/Bld) [Vol rate/Area] 77 mL/min/{1.73_m2} Normal >60 [facility] Comment on above: Result Comment: mL/m in/1.73m2 CKD-EPI Creatinine Equation (2020) Performed By: #### L 500.2500, L100.0500 ####[facility] [address] [place], [address] Glucose [Mass/Vol] 85 mg/dL Normal 70-99 [facility] Comment on above: Performed By: #### L 500.2500, L100.0500 ####[facility] [address] [place], [address] Potassium [Moles/Vol] 3.8 mmol/L Normal 3.3-5.1 [facility] Comment on above: Performed By: #### L 500.2500, L100.0500 ####[facility] [address] [place], [address] Sodium [Moles/Vol] 139 mmol/L Normal 133-145 [facility] Comment on above: Performed By: #### L 500.2500, L100.0500 ####[facility] [address] [place], [address] Urea nitrogen [Mass/Vol] 17 mg/dL Normal 4-19 [facility] Comment on above: Performed By: #### L 500.2500, L100.0500 ####[facility] [address] [place], [address] CBC-Complete Blood Cnt No ffon 12-23-2024 Erythrocyte distribution width (RBC) [Ratio] 14.1 % Normal 11.6-14.6 [facility] Comment on above: Performed By: #### L 500.2500, L100.0500 ####[facility] [address] [place], [address] Hematocrit (Bld) [Volume fraction] 36.3 % Low 40-54 [facility] Comment on above: Performed By: #### L 500.2500, L100.0500 ####[facility] [address] [place], [address] Hemoglobin (Bld) [Mass/Vol] 11.2 g/dL Low 13.0-16.5 [facility] Comment on above: Performed By: #### L 500.2500, L100.0500 ####[facility] [address] [place], [address] MCH (RBC) [Entitic mass] 27.7 pg Normal 27.0-32.0 [facility] Comment on above: Performed By: #### L 500.2500, L100.0500 ####[facility] [address] [place], [address] MCHC (RBC) [Mass/Vol] 30.9 g/dL Low 32-36 [facility] Comment on above: Performed By: #### L 500.2500, L100.0500 ####[facility] [address] [place], [address] MCV (RBC) [Entitic vol] 89.9 fL Normal 80-94 [facility] Comment on above: Performed By: #### L 500.2500, L100.0500 ####[facility] [address] [place], [address] Platelet mean volume (Bld) [Entitic vol] 10.0 fL Normal 6.2-12.0 [facility] Comment on above: Performed By: #### L 500.2500, L100.0500 ####[facility] [address] [place], [address] Platelets (Bld) [#/Vol] 376 10*3/uL Normal 150-450 [facility] Comment on above: Performed By: #### L 500.2500, L100.0500 ####[facility] [address] [place], [address] RBC (Bld) [#/Vol] 4.04 10*6/uL Low 4.6-6.2 [facility] Comment on above: Performed By: #### L 500.2500, L100.0500 ####[facility] [address] [place], [address] RDW SD 46.0 fl High 35.1-43.9 [facility] Comment on above: Performed By: #### L 500.2500, L100.0500 ####[facility] [address] [place], [address] WBC (Bld) [#/Vol] 7.5 10*3/uL Normal 4.4-11.0 [facility] Comment on above: Performed By: #### L 500.2500, L100.0500 ####[facility] [address] [place], [address] Duplex ultrasound of carotid artery reportOrdered By: Raul Jensen on 12-23-2024 Study report [facility] Work Phone: EGD Reporton 12-23-2024 EGD Report Normal [facility] MR/POSTOP.ANEon 12-23-2024 MR/POSTOP.ANE Normal [facility] MR/[id number] 12-23-2024 MR/POSTOPAN2 Normal [facility] Basic Metabolic Profile (BMP )on 12-22-2024 BUN/CRE 15.7 RATIO Normal 10-20 [facility] Comment on above: Performed By: #### L 100.0500, L500.2500 ####[facility] [address] [place], [address] Calcium [Mass/Vol] 8.8 mg/dL Normal 7.6-11.0 [facility] Comment on above: Performed By: #### L 100.0500, L500.2500 ####[facility] [address] [place], [address] Chloride [Moles/Vol] 103 mmol/L Normal 98-108 [facility] Comment on above: Performed By: #### L 100.0500, L500.2500 ####[facility] [address] [place], [address] CO2 [Moles/Vol] 24.6 mmol/L Normal 21.0-32.0 [facility] Comment on above: Performed By: #### L 100.0500, L500.2500 ####[facility] [address] [place], [address] Creatinine [Mass/Vol] 1.03 mg/dL Normal 0.70-1.20 [facility] Comment on above: Performed By: #### L 100.0500, L500.2500 ####[facility] [address] [place], [address] ECRCL 59.95 ml/min Normal 50-250 [facility] Comment on above: Performed By: #### L 100.0500, L500.2500 ####[facility] [address] [place], [address] GAP 11 Normal 5-15 [facility] Comment on above: Performed By: #### L 100.0500, L500.2500 ####[facility] [address] [place], [address] GFR/1.73 sq M.predicted among non-blacks MDRD (S/P/Bld) [Vol rate/Area] 76 mL/min/{1.73_m2} Normal >60 [facility] Comment on above: Result Comment: mL/m in/1.73m2 CKD-EPI Creatinine Equation (2020) Performed By: #### L 100.0500, L500.2500 ####[facility] [address] [place], [address] Glucose [Mass/Vol] 84 mg/dL Normal 70-99 [facility] Comment on above: Performed By: #### L 100.0500, L500.2500 ####[facility] [address] [place], [address] Potassium [Moles/Vol] 3.6 mmol/L Normal 3.3-5.1 [facility] Comment on above: Performed By: #### L 100.0500, L500.2500 ####[facility] [address] [place], [address] Sodium [Moles/Vol] 139 mmol/L Normal 133-145 [facility] Comment on above: Performed By: #### L 100.0500, L500.2500 ####[facility] [address] [place], [address] Urea nitrogen [Mass/Vol] 16 mg/dL Normal 4-19 [facility] Comment on above: Performed By: #### L 100.0500, L500.2500 ####[facility] [address] [place], [address] CBC-Complete Blood Cnt No Di ffon 12-22-2024 Erythrocyte distribution width (RBC) [Ratio] 13.8 % Normal 11.6-14.6 [facility] Comment on above: Performed By: #### L 100.0500, L500.2500 ####[facility] [address] [place], [address] Hematocrit (Bld) [Volume fraction] 37.7 % Low 40-54 [facility] Comment on above: Performed By: #### L 100.0500, L500.2500 ####[facility] [address] [place], [address] Hemoglobin (Bld) [Mass/Vol] 11.7 g/dL Low 13.0-16.5 [facility] Comment on above: Performed By: #### L 100.0500, L500.2500 ####[facility] [address] [place], [address] MCH (RBC) [Entitic mass] 27.7 pg Normal 27.0-32.0 [facility] Comment on above: Performed By: #### L 100.0500, L500.2500 ####[facility] [address] [place], [address] MCHC (RBC) [Mass/Vol] 31.0 g/dL Low 32-36 [facility] Comment on above: Performed By: #### L 100.0500, L500.2500 ####[facility] [address] [place], [address] MCV (RBC) [Entitic vol] 89.1 fL Normal 80-94 [facility] Comment on above: Performed By: #### L 100.0500, L500.2500 ####[facility] [address] [place], [address] Platelet mean volume (Bld) [Entitic vol] 10.1 fL Normal 6.2-12.0 [facility] Comment on above: Performed By: #### L 100.0500, L500.2500 ####[facility] [address] [place], [address] Platelets (Bld) [#/Vol] 392 10*3/uL Normal 150-450 [facility] Comment on above: Performed By: #### L 100.0500, L500.2500 ####[facility] [address] [place], [address] RBC (Bld) [#/Vol] 4.23 10*6/uL Low 4.6-6.2 [facility] Comment on above: Performed By: #### L 100.0500, L500.2500 ####[facility] [address] [place], [address] RDW SD 45.0 fl High 35.1-43.9 [facility] Comment on above: Performed By: #### L 100.0500, L500.2500 ####[facility] [address] [place], [address] WBC (Bld) [#/Vol] 7.5 10*3/uL Normal 4.4-11.0 [facility] Comment on above: Performed By: #### L 100.0500, L500.2500 ####[facility] [address] [place], [address] Basic Metabolic Profile (BMP )on 12-21-2024 BUN/CRE 16.2 RATIO Normal 10-20 [facility] Comment on above: Performed By: #### L 100.0100, L500.2500 ####[facility] [address] [place], [address] Calcium [Mass/Vol] 8.3 mg/dL Normal 7.6-11.0 [facility] Comment on above: Performed By: #### L 100.0100, L500.2500 ####[facility] [address] [place], [address] Chloride [Moles/Vol] 105 mmol/L Normal 98-108 [facility] Comment on above: Performed By: #### L 100.0100, L500.2500 ####[facility] [address] [place], [address] CO2 [Moles/Vol] 25.0 mmol/L Normal 21.0-32.0 [facility] Comment on above: Performed By: #### L 100.0100, L500.2500 ####[facility] [address] [place], [address] Creatinine [Mass/Vol] 0.99 mg/dL Normal 0.70-1.20 [facility] Comment on above: Performed By: #### L 100.0100, L500.2500 ####[facility] [address] [place], [address] ECRCL 62.37 ml/min Normal 50-250 [facility] Comment on above: Performed By: #### L 100.0100, L500.2500 ####[facility] [address] [place], [address] GAP 9 Normal 5-15 [facility] Comment on above: Performed By: #### L 100.0100, L500.2500 ####[facility] [address] [place], [address] GFR/1.73 sq M.predicted among non-blacks MDRD (S/P/Bld) [Vol rate/Area] 80 mL/min/{1.73_m2} Normal >60 [facility] Comment on above: Result Comment: mL/m in/1.73m2 CKD-EPI Creatinine Equation (2020) Performed By: #### L 100.0100, L500.2500 ####[facility] [address] [place], [address] Glucose [Mass/Vol] 95 mg/dL Normal 70-99 [facility] Comment on above: Performed By: #### L 100.0100, L500.2500 ####[facility] [address] [place], [address] Potassium [Moles/Vol] 3.5 mmol/L Normal 3.3-5.1 [facility] Comment on above: Performed By: #### L 100.0100, L500.2500 ####[facility] [address] [place], [address] Sodium [Moles/Vol] 139 mmol/L Normal 133-145 [facility] Comment on above: Performed By: #### L 100.0100, L500.2500 ####[facility] [address] [place], [address] Urea nitrogen [Mass/Vol] 16 mg/dL Normal 4-19 [facility] Comment on above: Performed By: #### L 100.0100, L500.2500 ####[facility] [address] [place], [address] CBC W/Diff, Automatedon 07-0 5-2025 Absolute Lymph 0.95 X10 3/uL Normal 0.83-4.51 [facility] Comment on above: Performed By: #### L 100.0100, L500.2500 ####[facility] [address] [place], [address] Absolute Neut 5.0 X10 3/uL Normal 2.0-7.7 [facility] Comment on above: Performed By: #### L 100.0100, L500.2500 ####[facility] [address] [place], [address] Basophils/100 WBC (Bld) 0.6 % Normal 0-1 [facility] Comment on above: Performed By: #### L 100.0100, L500.2500 ####[facility] [address] [place], [address] Eosinophils/100 WBC (Bld) 1.2 % Normal 0-5 [facility] Comment on above: Performed By: #### L 100.0100, L500.2500 ####[facility] [address] [place], [address] Erythrocyte distribution width (RBC) [Ratio] 13.7 % Normal 11.6-14.6 [facility] Comment on above: Performed By: #### L 100.0100, L500.2500 ####[facility] [address] [place], [address] Hematocrit (Bld) [Volume fraction] 33.8 % Low 40-54 [facility] Comment on above: Performed By: #### L 100.0100, L500.2500 ####[facility] [address] [place], [address] Hemoglobin (Bld) [Mass/Vol] 10.4 g/dL Low 13.0-16.5 [facility] Comment on above: Performed By: #### L 100.0100, L500.2500 ####[facility] [address] [place], [address] IG% 0.400 Normal 0.0-0.9 [facility] Comment on above: Result Comment: IG% - Immature Granulocytes (promyelocytes, myelocytes andmetamyelocytes) > 1% indicates that a LEFT SHIFT is Present. Performed By: #### L 100.0100, L500.2500 ####[facility] [address] [place], [address] Lymphocytes/100 WBC (Bld) 14.2 % Low 19-41 [facility] Comment on above: Performed By: #### L 100.0100, L500.2500 ####[facility] [address] [place], [address] MCH (RBC) [Entitic mass] 27.6 pg Normal 27.0-32.0 [facility] Comment on above: Performed By: #### L 100.0100, L500.2500 ####[facility] [address] [place], [address] MCHC (RBC) [Mass/Vol] 30.8 g/dL Low 32-36 [facility] Comment on above: Performed By: #### L 100.0100, L500.2500 ####[facility] [address] [place], [address] MCV (RBC) [Entitic vol] 89.7 fL Normal 80-94 [facility] Comment on above: Performed By: #### L 100.0100, L500.2500 ####[facility] [address] [place], [address] Monocytes/100 WBC (Bld) 8.5 % Normal 0-10 [facility] Comment on above: Performed By: #### L 100.0100, L500.2500 ####[facility] [address] [place], [address] Neutrophils/100 WBC (Bld) 75.1 % High 47-70 [facility] Comment on above: Performed By: #### L 100.0100, L500.2500 ####[facility] [address] [place], [address] Nucleated RBC (Bld) [#/Vol] 0 10*3/uL Normal 0-5 [facility] Comment on above: Performed By: #### L 100.0100, L500.2500 ####[facility] [address] [place], [address] Platelet mean volume (Bld) [Entitic vol] 9.7 fL Normal 6.2-12.0 [facility] Comment on above: Performed By: #### L 100.0100, L500.2500 ####[facility] [address] [place], [address] Platelets (Bld) [#/Vol] 326 10*3/uL Normal 150-450 [facility] Comment on above: Performed By: #### L 100.0100, L500.2500 ####[facility] [address] [place], [address] RBC (Bld) [#/Vol] 3.77 10*6/uL Low 4.6-6.2 [facility] Comment on above: Performed By: #### L 100.0100, L500.2500 ####[facility] [address] [place], [address] RDW SD 44.7 fl High 35.1-43.9 [facility] Comment on above: Performed By: #### L 100.0100, L500.2500 ####[facility] [address] [place], [address] WBC (Bld) [#/Vol] 6.7 10*3/uL Normal 4.4-11.0 [facility] Comment on above: Performed By: #### L 100.0100, L500.2500 ####[facility] [address] [place], [address] CBC W/Diff, Automatedon 07-0 4-2024 Absolute Lymph 0.69 X10 3/uL Low 0.83-4.51 [facility] Comment on above: Performed By: #### L 100.0100 ####[facility] [address] [place], [address] Absolute Neut 5.5 X10 3/uL Normal 2.0-7.7 [facility] Comment on above: Performed By: #### L 100.0100 ####[facility] [address] [place], [address] Basophils/100 WBC (Bld) 0.9 % Normal 0-1 [facility] Comment on above: Performed By: #### L 100.0100 ####[facility] [address] [place], [address] Eosinophils/100 WBC (Bld) 1.2 % Normal 0-5 [facility] Comment on above: Performed By: #### L 100.0100 ####[facility] [address] [place], [address] Erythrocyte distribution width (RBC) [Ratio] 13.7 % Normal 11.6-14.6 [facility] Comment on above: Performed By: #### L 100.0100 ####[facility] [address] [place], [address] Hematocrit (Bld) [Volume fraction] 35.7 % Low 40-54 [facility] Comment on above: Performed By: #### L 100.0100 ####[facility] [address] [place], [address] Hemoglobin (Bld) [Mass/Vol] 10.9 g/dL Low 13.0-16.5 [facility] Comment on above: Performed By: #### L 100.0100 ####[facility] [address] [place], [address] IG% 0.400 Normal 0.0-0.9 [facility] Comment on above: Result Comment: IG% - Immature Granulocytes (promyelocytes, myelocytes andmetamyelocytes) > 1% indicates that a LEFT SHIFT is Present. Performed By: #### L 100.0100 ####[facility] [address] [place], [address] Lymphocytes/100 WBC (Bld) 9.9 % Low 19-41 [facility] Comment on above: Performed By: #### L 100.0100 ####[facility] [address] [place], [address] MCH (RBC) [Entitic mass] 27.3 pg Normal 27.0-32.0 [facility] Comment on above: Performed By: #### L 100.0100 ####[facility] [address] [place], [address] MCHC (RBC) [Mass/Vol] 30.5 g/dL Low 32-36 [facility] Comment on above: Performed By: #### L 100.0100 ####[facility] [address] [place], [address] MCV (RBC) [Entitic vol] 89.5 fL Normal 80-94 [facility] Comment on above: Performed By: #### L 100.0100 ####[facility] [address] [place], [address] Monocytes/100 WBC (Bld) 8.5 % Normal 0-10 [facility] Comment on above: Performed By: #### L 100.0100 ####[facility] [address] [place], [address] Neutrophils/100 WBC (Bld) 79.1 % High 47-70 [facility] Comment on above: Performed By: #### L 100.0100 ####[facility] [address] [place], [address] Nucleated RBC (Bld) [#/Vol] 0 10*3/uL Normal 0-5 [facility] Comment on above: Performed By: #### L 100.0100 ####[facility] [address] [place], [address] Platelet mean volume (Bld) [Entitic vol] 10.0 fL Normal 6.2-12.0 [facility] Comment on above: Performed By: #### L 100.0100 ####[facility] [address] [place], [address] Platelets (Bld) [#/Vol] 355 10*3/uL Normal 150-450 [facility] Comment on above: Performed By: #### L 100.0100 ####[facility] [address] [place], [address] RBC (Bld) [#/Vol] 3.99 10*6/uL Low 4.6-6.2 [facility] Comment on above: Performed By: #### L 100.0100 ####[facility] [address] [place], [address] RDW SD 44.4 fl High 35.1-43.9 [facility] Comment on above: Performed By: #### L 100.0100 ####[facility] [address] [place], [address] WBC (Bld) [#/Vol] 6.9 10*3/uL Normal 4.4-11.0 [facility] Comment on above: Performed By: #### L 100.0100 ####[facility] [address] [place], [address] Carotid Duplex Ultrasoundon 12-20-2024 Carotid Duplex Ultrasound Normal [facility] Vitamin B12on 12-20-2024 Cobalamin (Vitamin B12) [Mass/Vol] 774 pg/mL Normal 180-914 [facility] Comment on above: Performed By: #### L 503.0106 ####[facility] [address] [place], [address] Vitamin B12 ser/plasOrdered By: Lisha Talamantes on 12-20-2024 Cobalamin (Vitamin B12) [Mass/Vol] 774 pg/mL 180-914 [facility] CBC W/Diff, Automatedon Absolute Lymph 0.67 X10 3/uL Low 0.83-4.51 [facility] Comment on above: Performed By: #### L 100.0100, L500.4050 ####[facility] [address] [place], [address] Absolute Neut 6.0 X10 3/uL Normal 2.0-7.7 [facility] Comment on above: Performed By: #### L 100.0100, L500.4050 ####[facility] [address] [place], [address] Basophils/100 WBC (Bld) 0.8 % Normal 0-1 [facility] Comment on above: Performed By: #### L 100.0100, L500.4050 ####[facility] [address] [place], [address] Eosinophils/100 WBC (Bld) 1.9 % Normal 0-5 [facility] Comment on above: Performed By: #### L 100.0100, L500.4050 ####[facility] [address] [place], [address] Erythrocyte distribution width (RBC) [Ratio] 13.6 % Normal 11.6-14.6 [facility] Comment on above: Performed By: #### L 100.0100, L500.4050 ####[facility] [address] [place], [address] Hematocrit (Bld) [Volume fraction] 39.1 % Low 40-54 [facility] Comment on above: Performed By: #### L 100.0100, L500.4050 ####[facility] [address] [place], [address] Hemoglobin (Bld) [Mass/Vol] 11.9 g/dL Low 13.0-16.5 [facility] Comment on above: Performed By: #### L 100.0100, L500.4050 ####[facility] [address] [place], [address] IG% 0.400 Normal 0.0-0.9 [facility] Comment on above: Result Comment: IG% - Immature Granulocytes (promyelocytes, myelocytes andmetamyelocytes) > 1% indicates that a LEFT SHIFT is Present. Performed By: #### L 100.0100, L500.4050 ####[facility] [address] [place], [address] Lymphocytes/100 WBC (Bld) 9.0 % Low 19-41 [facility] Comment on above: Performed By: #### L 100.0100, L500.4050 ####[facility] [address] [place], [address] MCH (RBC) [Entitic mass] 27.5 pg Normal 27.0-32.0 [facility] Comment on above: Performed By: #### L 100.0100, L500.4050 ####[facility] [address] [place], [address] MCHC (RBC) [Mass/Vol] 30.4 g/dL Low 32-36 [facility] Comment on above: Performed By: #### L 100.0100, L500.4050 ####[facility] [address] [place], [address] MCV (RBC) [Entitic vol] 90.5 fL Normal 80-94 [facility] Comment on above: Performed By: #### L 100.0100, L500.4050 ####[facility] [address] [place], [address] Monocytes/100 WBC (Bld) 6.6 % Normal 0-10 [facility] Comment on above: Performed By: #### L 100.0100, L500.4050 ####[facility] [address] [place], [address] Neutrophils/100 WBC (Bld) 81.3 % High 47-70 [facility] Comment on above: Performed By: #### L 100.0100, L500.4050 ####[facility] [address] [place], [address] Nucleated RBC (Bld) [#/Vol] 0 10*3/uL Normal 0-5 [facility] Comment on above: Performed By: #### L 100.0100, L500.4050 ####[facility] [address] [place], [address] Platelet mean volume (Bld) [Entitic vol] 9.6 fL Normal 6.2-12.0 [facility] Comment on above: Performed By: #### L 100.0100, L500.4050 ####[facility] [address] [place], [address] Platelets (Bld) [#/Vol] 375 10*3/uL Normal 150-450 [facility] Comment on above: Performed By: #### L 100.0100, L500.4050 ####[facility] [address] [place], [address] RBC (Bld) [#/Vol] 4.32 10*6/uL Low 4.6-6.2 [facility] Comment on above: Performed By: #### L 100.0100, L500.4050 ####[facility] [address] [place], [address] RDW SD 44.8 fl High 35.1-43.9 [facility] Comment on above: Performed By: #### L 100.0100, L500.4050 ####[facility] [address] [place], [address] WBC (Bld) [#/Vol] 7.4 10*3/uL Normal 4.4-11.0 [facility] Comment on above: Performed By: #### L 100.0100, L500.4050 ####[facility] [address] [place], [address] CDIFF (PCR)on 12-19-2024 CDIFF Normal [facility] Comment on above: Performed By: #### M 100.6796 ####[facility] [address] [place], [address] Comprehensive Metabolic Prof ilon 12-19-2024 Albumin [Mass/Vol] 4.3 g/dL Normal 3.4-4.8 [facility] Comment on above: Performed By: #### L 100.0100, L500.4050 ####[facility] [address] [place], [address] Albumin/Globulin [Mass ratio] 1.5 {ratio} Normal 0.9-2.4 [facility] Comment on above: Performed By: #### L 100.0100, L500.4050 ####[facility] [address] [place], [address] ALK PHOS 69 U/L Normal 40-129 [facility] Comment on above: Performed By: #### L 100.0100, L500.4050 ####[facility] [address] [place], [address] ALT [Catalytic activity/Vol] 25 U/L Normal <=46 [facility] Comment on above: Performed By: #### L 100.0100, L500.4050 ####[facility] [address] [place], [address] AST [Catalytic activity/Vol] 23 U/L Normal <=37 [facility] Comment on above: Performed By: #### L 100.0100, L500.4050 ####[facility] [address] [place], [address] Bilirubin [Mass/Vol] 0.24 mg/dL Normal 0.00-1.30 [facility] Comment on above: Performed By: #### L 100.0100, L500.4050 ####[facility] [address] [place], [address] BUN/CRE 17.6 RATIO Normal 10-20 [facility] Comment on above: Performed By: #### L 100.0100, L500.4050 ####[facility] [address] [place], [address] Calcium [Mass/Vol] 9.5 mg/dL Normal 7.6-11.0 [facility] Comment on above: Performed By: #### L 100.0100, L500.4050 ####[facility] [address] [place], [address] Chloride [Moles/Vol] 101 mmol/L Normal 98-108 [facility] Comment on above: Performed By: #### L 100.0100, L500.4050 ####[facility] [address] [place], [address] CO2 [Moles/Vol] 27.6 mmol/L Normal 21.0-32.0 [facility] Comment on above: Performed By: #### L 100.0100, L500.4050 ####[facility] [address] [place], [address] Creatinine [Mass/Vol] 1.06 mg/dL Normal 0.70-1.20 [facility] Comment on above: Performed By: #### L 100.0100, L500.4050 ####[facility] [address] [place], [address] ECRCL 58.25 ml/min Normal 50-250 [facility] Comment on above: Performed By: #### L 100.0100, L500.4050 ####[facility] [address] [place], [address] GAP 12 Normal 5-15 [facility] Comment on above: Performed By: #### L 100.0100, L500.4050 ####[facility] [address] [place], [address] GFR/1.73 sq M.predicted among non-blacks MDRD (S/P/Bld) [Vol rate/Area] 73 mL/min/{1.73_m2} Normal >60 [facility] Comment on above: Result Comment: mL/m in/1.73m2 CKD-EPI Creatinine Equation (2020) Performed By: #### L 100.0100, L500.4050 ####[facility] [address] [place], [address] Globulin (S) [Mass/Vol] 2.8 g/dL Normal 2.2-4.2 [facility] Comment on above: Performed By: #### L 100.0100, L500.4050 ####[facility] [address] [place], [address] Glucose [Mass/Vol] 109 mg/dL High 70-99 [facility] Comment on above: Performed By: #### L 100.0100, L500.4050 ####[facility] [address] [place], [address] Potassium [Moles/Vol] 3.6 mmol/L Normal 3.3-5.1 [facility] Comment on above: Performed By: #### L 100.0100, L500.4050 ####[facility] [address] [place], [address] Sodium [Moles/Vol] 141 mmol/L Normal 133-145 [facility] Comment on above: Performed By: #### L 100.0100, L500.4050 ####[facility] [address] [place], [address] T PROT 7.1 g/dL Normal 5.9-8.4 [facility] Comment on above: Performed By: #### L 100.0100, L500.4050 ####[facility] [address] [place], [address] Urea nitrogen [Mass/Vol] 19 mg/dL Normal 4-19 [facility] Comment on above: Performed By: #### L 100.0100, L500.4050 ####[facility] [address] [place], [address] ENTERIC PATHOGEN PANEL STOOL on 12-19-2024 EP PANEL Normal [facility] Comment on above: Performed By: #### M 100.637 ####[facility] [address] [place], [address] Magnetic resonance imaging r eportOrdered By: Dorian Parker on 12-19-2024 Study report [facility] Basic Metabolic Profile (BMP )on 12-18-2024 BUN/CRE 20.6 RATIO High 10-20 [facility] Comment on above: Performed By: #### L 500.2500, L100.0500 ####[facility] [address] [place], [address] Calcium [Mass/Vol] 9.7 mg/dL Normal 7.6-11.0 [facility] Comment on above: Performed By: #### L 500.2500, L100.0500 ####[facility] [address] [place], [address] Chloride [Moles/Vol] 103 mmol/L Normal 98-108 [facility] Comment on above: Performed By: #### L 500.2500, L100.0500 ####[facility] [address] [place], [address] CO2 [Moles/Vol] 26.5 mmol/L Normal 21.0-32.0 [facility] Comment on above: Performed By: #### L 500.2500, L100.0500 ####[facility] [address] [place], [address] Creatinine [Mass/Vol] 1.06 mg/dL Normal 0.70-1.20 [facility] Comment on above: Performed By: #### L 500.2500, L100.0500 ####[facility] [address] [place], [address] ECRCL 58.25 ml/min Normal 50-250 [facility] Comment on above: Performed By: #### L 500.2500, L100.0500 ####[facility] [address] [place], [address] GAP 12 Normal 5-15 [facility] Comment on above: Performed By: #### L 500.2500, L100.0500 ####[facility] [address] [place], [address] GFR/1.73 sq M.predicted among non-blacks MDRD (S/P/Bld) [Vol rate/Area] 73 mL/min/{1.73_m2} Normal >60 [facility] Comment on above: Result Comment: mL/m in/1.73m2 CKD-EPI Creatinine Equation (2020) Performed By: #### L 500.2500, L100.0500 ####[facility] [address] [place], [address] Glucose [Mass/Vol] 95 mg/dL Normal 70-99 [facility] Comment on above: Performed By: #### L 500.2500, L100.0500 ####[facility] [address] [place], [address] Potassium [Moles/Vol] 4.2 mmol/L Normal 3.3-5.1 [facility] Comment on above: Result Comment: Hemo lysis present, Results??could be affected.?? Performed By: #### L 500.2500, L100.0500 ####[facility] [address] [place], [address] Sodium [Moles/Vol] 141 mmol/L Normal 133-145 [facility] Comment on above: Performed By: #### L 500.2500, L100.0500 ####[facility] [address] [place], [address] Urea nitrogen [Mass/Vol] 22 mg/dL High 4-19 [facility] Comment on above: Performed By: #### L 500.2500, L100.0500 ####[facility] [address] [place], [address] Brain without Contraston Brain without Contrast Normal [facility] CBC-Complete Blood Cnt No Di ffon 12-18-2024 Erythrocyte distribution width (RBC) [Ratio] 13.7 % Normal 11.6-14.6 [facility] Comment on above: Performed By: #### L 500.2500, L100.0500 ####[facility] [address] [place], [address] Hematocrit (Bld) [Volume fraction] 41.9 % Normal 40-54 [facility] Comment on above: Performed By: #### L 500.2500, L100.0500 ####[facility] [address] [place], [address] Hemoglobin (Bld) [Mass/Vol] 12.8 g/dL Low 13.0-16.5 [facility] Comment on above: Performed By: #### L 500.2500, L100.0500 ####[facility] [address] [place], [address] MCH (RBC) [Entitic mass] 27.7 pg Normal 27.0-32.0 [facility] Comment on above: Performed By: #### L 500.2500, L100.0500 ####[facility] [address] [place], [address] MCHC (RBC) [Mass/Vol] 30.5 g/dL Low 32-36 [facility] Comment on above: Performed By: #### L 500.2500, L100.0500 ####[facility] [address] [place], [address] MCV (RBC) [Entitic vol] 90.7 fL Normal 80-94 [facility] Comment on above: Performed By: #### L 500.2500, L100.0500 ####[facility] [address] [place], [address] Platelet mean volume (Bld) [Entitic vol] 9.9 fL Normal 6.2-12.0 [facility] Comment on above: Performed By: #### L 500.2500, L100.0500 ####[facility] [address] [place], [address] Platelets (Bld) [#/Vol] 386 10*3/uL Normal 150-450 [facility] Comment on above: Performed By: #### L 500.2500, L100.0500 ####[facility] [address] [place], [address] RBC (Bld) [#/Vol] 4.62 10*6/uL Normal 4.6-6.2 [facility] Comment on above: Performed By: #### L 500.2500, L100.0500 ####[facility] [address] [place], [address] RDW SD 45.7 fl High 35.1-43.9 [facility] Comment on above: Performed By: #### L 500.2500, L100.0500 ####[facility] [address] [place], [address] WBC (Bld) [#/Vol] 10.4 10*3/uL Normal 4.4-11.0 [facility] Comment on above: Performed By: #### L 500.2500, L100.0500 ####[facility] [address] [place], [address] Clostridium difficile detect ion by polymerase chain reactionOrdered By: Lisha Talamantes on 12-18-2024 C. difficile DNA ALEENA+probe Ql (Unsp spec) [facility] Echo, Limited Studyon 2024 Echo, Limited Study Normal [facility] Electrocardiogram reportOrde red By: Brendan Vallejo on 12-18-2024 EKG study [facility] Other Phone: Limited echocardiogram repor tOrdered By: Milton Guajardo on 12-18-2024 Study report [facility] Work Phone: MR/CON.PCM.NEon 12-18-2024 MR/CON.PCM.NE Normal [facility] 12 Lead EKGon 12-17-2024 12 Lead EKG Normal [facility] Absolute lymphocyte countOrd ered By: Seth Pritchard on 12-17-2024 Lymphocytes Auto (Unsp spec) [#/Vol] 1.03 10*3/uL 0.83-4.51 [facility] Activated partial thrombopla stin time (aPTT) in platelet poor plasma by coagulation aOrdered By: Seth Pritchard on 12-17-2024 aPTT Coag (PPP) [Time] 24.2 s 24.1-36.2 [facility] Anion gap in Serum or Plasma Ordered By: Seth Pritchard on 12-17-2024 Anion gap [Moles/Vol] 13 mmol/L 5-15 [facility] Automated blood erythrocyte countOrdered By: Seth Pritchard on 12-17-2024 RBC (Bld) [#/Vol] 4.45 10*6/uL Low 4.6-6.2 [facility] Comment on above: Performed By: #### L 501.4021, L300.4310, L100.0100, L500.2500, L300.3900 ####[facility] [address] [place], [address] Automated blood hematocrit ( percentage)Ordered By: Seth Pritchard on 12-17-2024 Hematocrit (Bld) [Volume fraction] 39.6 % Low 40-54 [facility] Comment on above: Performed By: #### L 501.4021, L300.4310, L100.0100, L500.2500, L300.3900 ####[facility] [address] [place], [address] Automated lymphocyte count a s percentage of total leukocytesOrdered By: Seth Pritchard on 12-17-2024 Lymphocytes/100 WBC Auto (Unsp spec) 12.1 % Low 19-41 [facility] BUN/creatinine ratioOrdered By: Seth Pritchard on 12-17-2024 Urea nitrogen/Creatinine [Mass ratio] 26.4 mg/mg High 10-20 [facility] Basic Metabolic Profile (BMP )on 12-17-2024 BUN/CRE 26.4 RATIO High 10-20 [facility] Comment on above: Performed By: #### L 501.4021, L300.4310, L100.0100, L500.2500, L300.3900 ####[facility] [address] [place], [address] ECRCL 52.33 ml/min Normal 50-250 [facility] Comment on above: Performed By: #### L 501.4021, L300.4310, L100.0100, L500.2500, L300.3900 ####[facility] [address] [place], [address] GAP 13 Normal 5-15 [facility] Comment on above: Performed By: #### L 501.4021, L300.4310, L100.0100, L500.2500, L300.3900 ####[facility] [address] [place], [address] Potassium [Moles/Vol] 3.6 mmol/L Normal 3.3-5.1 [facility] Comment on above: Performed By: #### L 501.4021, L300.4310, L100.0100, L500.2500, L300.3900 ####[facility] [address] [place], [address] Basophil percentageOrdered B y: Seth Pritchard on 12-17-2024 Basophils/100 WBC (Bld) 1.1 % High 0-1 [facility] Comment on above: Performed By: #### L 501.4021, L300.4310, L100.0100, L500.2500, L300.3900 ####[facility] [address] [place], [address] CBC W/Diff, Automatedon 07-0 Absolute Lymph 1.03 X10 3/uL Normal 0.83-4.51 [facility] Comment on above: Performed By: #### L 501.4021, L300.4310, L100.0100, L500.2500, L300.3900 ####[facility] [address] [place], [address] Absolute Neut 6.6 X10 3/uL Normal 2.0-7.7 [facility] Comment on above: Performed By: #### L 501.4021, L300.4310, L100.0100, L500.2500, L300.3900 ####[facility] [address] [place], [address] IG% 0.400 Normal 0.0-0.9 [facility] Comment on above: Result Comment: IG% - Immature Granulocytes (promyelocytes, myelocytes andmetamyelocytes) > 1% indicates that a LEFT SHIFT is Present. Performed By: #### L 501.4021, L300.4310, L100.0100, L500.2500, L300.3900 ####[facility] [address] [place], [address] Lymphocytes/100 WBC (Bld) 12.1 % Low 19-41 [facility] Comment on above: Performed By: #### L 501.4021, L300.4310, L100.0100, L500.2500, L300.3900 ####[facility] [address] [place], [address] MCHC (RBC) [Mass/Vol] 31.3 g/dL Low 32-36 [facility] Comment on above: Performed By: #### L 501.4021, L300.4310, L100.0100, L500.2500, L300.3900 ####[facility] [address] [place], [address] Nucleated RBC (Bld) [#/Vol] 0 10*3/uL Normal 0-5 [facility] Comment on above: Performed By: #### L 501.4021, L300.4310, L100.0100, L500.2500, L300.3900 ####[facility] [address] [place], [address] Platelet mean volume (Bld) [Entitic vol] 10.0 fL Normal 6.2-12.0 [facility] Comment on above: Performed By: #### L 501.4021, L300.4310, L100.0100, L500.2500, L300.3900 ####[facility] [address] [place], [address] RDW SD 45.6 fl High 35.1-43.9 [facility] Comment on above: Performed By: #### L 501.4021, L300.4310, L100.0100, L500.2500, L300.3900 ####[facility] [address] [place], [address] Carbon dioxide, total [Moles /volume] in Central venous bloodOrdered By: Seth Pritchard on 12-17-2024 CO2 [Moles/Vol] 25.5 mmol/L Normal 21.0-32.0 [facility] Comment on above: Performed By: #### L 501.4021, L300.4310, L100.0100, L500.2500, L300.3900 ####[facility] [address] [place], [address] Chest PA and Lateralon 12-17 Chest PA and Lateral Normal [facility] Chloride assayOrdered By: Bill Pritchard on 12-17-2024 Chloride [Moles/Vol] 104 mmol/L Normal 98-108 [facility] Comment on above: Performed By: #### L 501.4021, L300.4310, L100.0100, L500.2500, L300.3900 ####[facility] [address] [place], [address] Emergency Department Summary on 12-17-2024 Emergency Department Summary Normal [facility] Eosinophil percentageOrdered By: Seth Pritchard on 12-17-2024 Eosinophils/100 WBC (Bld) 1.1 % Normal 0-5 [facility] Comment on above: Performed By: #### L 501.4021, L300.4310, L100.0100, L500.2500, L300.3900 ####[facility] [address] [place], [address] Erythrocyte distribution wid th ratioOrdered By: Seth Pritchard on 12-17-2024 Erythrocyte distribution width (RBC) [Ratio] 14.0 % Normal 11.6-14.6 [facility] Comment on above: Performed By: #### L 501.4021, L300.4310, L100.0100, L500.2500, L300.3900 ####[facility] [address] [place], [address] Erythrocyte distribution wid th standard deviationOrdered By: Seth Pritchard on 12-17-2024 Erythrocyte distribution width (RBC) [Ratio] 45.6 fl High 35.1-43.9 [facility] Glomerular filtration rate ( GFR) estimation/1.73 sq m using serum, plasma, or whole bOrdered By: Seth Pritchard on 12-17-2024 GFR/1.73 sq M.predicted among non-blacks MDRD (S/P/Bld) [Vol rate/Area] 64 mL/min/{1.73_m2} Normal >60 [facility] Comment on above: Result Comment: mL/m in/1.73m2 CKD-EPI Creatinine Equation (2020) Performed By: #### L 501.4021, L300.4310, L100.0100, L500.2500, L300.3900 ####[facility] [address] [place], [address] H AND P Exam - Hospitaliston 12-17-2024 H&P Exam - Hospitalist Normal [facility] Hemoglobin A1c percentageOrd ered By: Roman Patel on 12-17-2024 HbA1c (Bld) [Mass fraction] 5.9 % High <=5.6 [facility] Comment on above: Result Comment: Norm al < 5.7 % Prediabetic 5.7 - 6.4 % Diabetic >or= 6.5 % Please note range changes. Performed By: #### L 501.9520, L501.9985 ####[facility] [address] [place], [address] Hemoglobin measurementOrdere d By: Seth Pritchard on 12-17-2024 Hemoglobin (Bld) [Mass/Vol] 12.4 g/dL Low 13.0-16.5 [facility] Comment on above: Performed By: #### L 501.4021, L300.4310, L100.0100, L500.2500, L300.3900 ####[facility] [address] [place], [address] Immature granulocytes/100 WB C Auto (Bld)Ordered By: Seth Pritchard on 12-17-2024 Immature granulocytes/100 WBC (Bld) 0.400 % 0.0-0.9 [facility] L499.0042on 12-17-2024 Trop T High Sen 23 ng/L High <=22 [facility] Comment on above: Performed By: #### L 499.0042 ####[facility] [address] [place], [address] L499.0043on 12-17-2024 Trop T High Sen 23 ng/L High <=22 [facility] Comment on above: Performed By: #### L 499.0043 ####[facility] [address] [place], [address] L501.4021on 12-17-2024 Trop T High Sen 27 ng/L High <=22 [facility] Comment on above: Performed By: #### L 501.4021, L300.4310, L100.0100, L500.2500, L300.3900 ####[facility] [address] [place], [address] MCV (mean corpuscular volume ) determinationOrdered By: Seth Pritchard on 12-17-2024 MCV (RBC) [Entitic vol] 89.0 fL Normal 80-94 [facility] Comment on above: Performed By: #### L 501.4021, L300.4310, L100.0100, L500.2500, L300.3900 ####[facility] [address] [place], [address] Mean corpuscular hemoglobin (MCH) determinationOrdered By: Seth Pritchard on 12-17-2024 MCH (RBC) [Entitic mass] 27.9 pg Normal 27.0-32.0 [facility] Comment on above: Performed By: #### L 501.4021, L300.4310, L100.0100, L500.2500, L300.3900 ####[facility] [address] [place], [address] Monocyte percentageOrdered B y: Seth Pritchard on 12-17-2024 Monocytes/100 WBC (Bld) 7.8 % Normal 0-10 [facility] Comment on above: Performed By: #### L 501.4021, L300.4310, L100.0100, L500.2500, L300.3900 ####[facility] [address] [place], [address] Neutrophil percentageOrdered By: Seth Pritchard on 12-17-2024 Neutrophils/100 WBC (Bld) 77.5 % High 47-70 [facility] Comment on above: Performed By: #### L 501.4021, L300.4310, L100.0100, L500.2500, L300.3900 ####[facility] [address] [place], [address] Partial Thromboplast Timeon 12-17-2024 aPTT Coag (Bld) [Time] 24.2 s Normal 24.1-36.2 [facility] Comment on above: Performed By: #### L 501.4021, L300.4310, L100.0100, L500.2500, L300.3900 ####[facility] [address] [place], [address] Platelet countOrdered By: Bill Pritchard on 12-17-2024 Platelets (Bld) [#/Vol] 417 10*3/uL Normal 150-450 [facility] Comment on above: Performed By: #### L 501.4021, L300.4310, L100.0100, L500.2500, L300.3900 ####[facility] [address] [place], [address] Potassium measurement (mass/ volume)Ordered By: Seth Pritchard on 12-17-2024 Potassium (Unsp spec) [Mass/Vol] 3.6 mmol/L 3.3-5.1 [facility] Prothrombin Time w/INRon INR Coag (PPP) [Relative time] 0.9 {INR} Normal [facility] Comment on above: Performed By: #### L 501.4021, L300.4310, L100.0100, L500.2500, L300.3900 ####[facility] [address] [place], [address] Prothrombin timeOrdered By: Seth Pritchard on 12-17-2024 PT Coag (PPP) [Time] 12.8 s Normal 11.7-14.9 [facility] Comment on above: Performed By: #### L 501.4021, L300.4310, L100.0100, L500.2500, L300.3900 ####[facility] [address] [place], [address] STROKE Brain/Head without Co nton 12-17-2024 STROKE Brain/Head without Cont Normal [facility] STROKE CTA Head AND Neck W/C onon 12-17-2024 STROKE CTA Head AND Neck W/Con Normal [facility] Serum creatinine measurement (mass/volume)Ordered By: Seth Pritchard on 12-17-2024 Creatinine [Mass/Vol] 1.18 mg/dL Normal 0.70-1.20 [facility] Comment on above: Performed By: #### L 501.4021, L300.4310, L100.0100, L500.2500, L300.3900 ####[facility] [address] [place], [address] Serum glucose measurement (m ass/volume)Ordered By: Seth Pritchard on 12-17-2024 Glucose [Mass/Vol] 137 mg/dL High 70-99 [facility] Comment on above: Performed By: #### L 501.4021, L300.4310, L100.0100, L500.2500, L300.3900 ####[facility] [address] [place], [address] Serum or plasma calcium luis urement (mass/volume)Ordered By: Seth Pritchard on 12-17-2024 Calcium [Mass/Vol] 9.9 mg/dL Normal 7.6-11.0 [facility] Comment on above: Performed By: #### L 501.4021, L300.4310, L100.0100, L500.2500, L300.3900 ####[facility] [address] [place], [place], [address] Serum or plasma urea nitroge n measurement (mass/volume)Ordered By: Seth Pritchard on 12-17-2024 Urea nitrogen [Mass/Vol] 31 mg/dL High 4-19 [facility] Comment on above: Performed By: #### L 501.4021, L300.4310, L100.0100, L500.2500, L300.3900 ####[facility] [address] [place], [address] Sodium levelOrdered By: Huang Pritchard on 12-17-2024 Sodium [Moles/Vol] 142 mmol/L Normal 133-145 [facility] Comment on above: Performed By: #### L 501.4021, L300.4310, L100.0100, L500.2500, L300.3900 ####[facility] [address] [place], [address] TSH DL <= 0.005 mIU/L QnOrde red By: Roman Patel on 12-17-2024 TSH Qn 3.380 uIU/mL 0.300-4.200 [facility] Thyroid Stim Hormone (TSH)on 12-17-2024 TSH 3.380 uIU/mL Normal 0.300-4.200 [facility] Comment on above: Performed By: #### L 501.9520, L501.9985 ####[facility] [address] [place], [address] Troponin T.cardiac [Mass/vol ume] in Serum or Plasma by High sensitivity methodOrdered By: Seth Pritchard on 12-17-2024 Troponin T.cardiac High sensitivity method [Mass/Vol] 23 ng/L High <22 [facility] Troponin T.cardiac High sensitivity method [Mass/Vol] 23 ng/L High <22 [facility] Troponin T.cardiac High sensitivity method [Mass/Vol] 27 ng/L High <22 [facility] White blood cell (WBC) count Ordered By: Seth Pritchard on 12-17-2024 WBC (Bld) [#/Vol] 8.5 10*3/uL Normal 4.4-11.0 [facility] Comment on above: Performed By: #### L 501.4021, L300.4310, L100.0100, L500.2500, L300.3900 ####[facility] [address] [place], [address] Anion gap in Serum or Plasma Ordered By: Lisha Talamantes on 12-16-2024 Anion gap [Moles/Vol] 12 mmol/L 5-15 [facility] BUN/creatinine ratioOrdered By: Lisha Talamantes on 12-16-2024 Urea nitrogen/Creatinine [Mass ratio] 24.5 mg/mg High - [facility] Basic Metabolic Profile (BMP )on 12-16-2024 BUN/CRE 24.5 RATIO High - [facility] Comment on above: Performed By: #### L 500.2500 ####[facility] [address] [place], [address] Calcium [Mass/Vol] 9.4 mg/dL Normal 7.6-11.0 [facility] Comment on above: Performed By: #### L 500.2500 ####[facility] [address] [place], [address] Chloride [Moles/Vol] 102 mmol/L Normal 98-108 [facility] Comment on above: Performed By: #### L 500.2500 ####[facility] [address] [place], [address] CO2 [Moles/Vol] 25.5 mmol/L Normal 21.0-32.0 [facility] Comment on above: Performed By: #### L 500.2500 ####[facility] [address] [place], [address] Creatinine [Mass/Vol] 1.17 mg/dL Normal 0.70-1.20 [facility] Comment on above: Performed By: #### L 500.2500 ####[facility] [address] [place], [address] ECRCL 52.78 ml/min Normal 50-250 [facility] Comment on above: Performed By: #### L 500.2500 ####[facility] [address] [place], [address] GAP 12 Normal 5-15 [facility] Comment on above: Performed By: #### L 500.2500 ####[facility] [address] [place], [address] GFR/1.73 sq M.predicted among non-blacks MDRD (S/P/Bld) [Vol rate/Area] 65 mL/min/{1.73_m2} Normal >60 [facility] Comment on above: Result Comment: mL/m in/1.73m2 CKD-EPI Creatinine Equation (2020) Performed By: #### L 500.2500 ####[facility] [address] [place], [address] Glucose [Mass/Vol] 108 mg/dL High 70-99 [facility] Comment on above: Performed By: #### L 500.2500 ####[facility] [address] [place], [address] Potassium [Moles/Vol] 3.6 mmol/L Normal 3.3-5.1 [facility] Comment on above: Performed By: #### L 500.2500 ####[facility] [address] [place], [address] Sodium [Moles/Vol] 140 mmol/L Normal 133-145 [facility] Comment on above: Performed By: #### L 500.2500 ####[facility] [address] [place], [place], [id number] Urea nitrogen [Mass/Vol] 29 mg/dL High 4-19 [facility] Comment on above: Performed By: #### L 500.2500 ####[facility] [address] [place], [place], [id number] Carbon dioxide, total [Moles /volume] in Central venous bloodOrdered By: Lisha Talamantes on 12-16-2024 CO2 [Moles/Vol] 25.5 mmol/L 21.0-32.0 [facility] Chloride assayOrdered By: iSerra Talamantes on 12-16-2024 Chloride [Moles/Vol] 102 mmol/L 98-108 [facility] Culture, Blood (WB)on 2024 CUB Blood cultures x2, from two different sites No growth in 5 days. Normal [facility] Comment on above: Performed By: #### M 200.1000 ####[facility] [address] [place], [place], [id number] Glomerular filtration rate ( GFR) estimation/1.73 sq m using serum, plasma, or whole bOrdered By: Lisha Talamantes on 12-16-2024 GFR/1.73 sq M.predicted among non-blacks MDRD (S/P/Bld) [Vol rate/Area] 65 mL/min/{1.73_m2} >60 [facility] Potassium measurement (mass/ volume)Ordered By: Lisha Talamantes on 12-16-2024 Potassium (Unsp spec) [Mass/Vol] 3.6 mmol/L 3.3-5.1 [facility] Serum creatinine measurement (mass/volume)Ordered By: Lisha Talamantes on 12-16-2024 Creatinine [Mass/Vol] 1.17 mg/dL 0.70-1.20 [facility] Serum glucose measurement (m ass/volume)Ordered By: Lisha Talamantes on 12-16-2024 Glucose [Mass/Vol] 108 mg/dL High 70-99 [facility] Serum or plasma calcium luis urement (mass/volume)Ordered By: Lisha Talamantes on 12-16-2024 Calcium [Mass/Vol] 9.4 mg/dL 7.6-11.0 [facility] Serum or plasma urea nitroge n measurement (mass/volume)Ordered By: Lisha Talamantes on 12-16-2024 Urea nitrogen [Mass/Vol] 29 mg/dL High 4-19 [facility] Sodium levelOrdered By: Cecilia Talamantes on 12-16-2024 Sodium [Moles/Vol] 140 mmol/L 133-145 [facility] Absolute lymphocyte countOrd ered By: Lisha Talamantes on 12-15-2024 Lymphocytes Auto (Unsp spec) [#/Vol] 0.82 10*3/uL Low 0.83-4.51 [facility] Automated lymphocyte count a s percentage of total leukocytesOrdered By: Lisha Talamantes on 12-15-2024 Lymphocytes/100 WBC Auto (Unsp spec) 9.8 % Low 19-41 [facility] Basic Metabolic Profile (BMP )on 12-15-2024 BUN/CRE 20.1 RATIO High 10-20 [facility] Comment on above: Performed By: #### L 501.5200, L501.2300, L500.2500, L100.0100 ####[facility] [address] [place], [address] Calcium [Mass/Vol] 9.3 mg/dL Normal 7.6-11.0 [facility] Comment on above: Performed By: #### L 501.5200, L501.2300, L500.2500, L100.0100 ####[facility] [address] [place], [address] Chloride [Moles/Vol] 106 mmol/L Normal 98-108 [facility] Comment on above: Performed By: #### L 501.5200, L501.2300, L500.2500, L100.0100 ####[facility] [address] [place], [address] CO2 [Moles/Vol] 24.0 mmol/L Normal 21.0-32.0 [facility] Comment on above: Performed By: #### L 501.5200, L501.2300, L500.2500, L100.0100 ####[facility] [address] [place], [address] Creatinine [Mass/Vol] 1.10 mg/dL Normal 0.70-1.20 [facility] Comment on above: Performed By: #### L 501.5200, L501.2300, L500.2500, L100.0100 ####[facility] [address] [place], [address] ECRCL 56.14 ml/min Normal 50-250 [facility] Comment on above: Performed By: #### L 501.5200, L501.2300, L500.2500, L100.0100 ####[facility] [address] [place], [address] GAP 12 Normal 5-15 [facility] Comment on above: Performed By: #### L 501.5200, L501.2300, L500.2500, L100.0100 ####[facility] [address] [place], [address] GFR/1.73 sq M.predicted among non-blacks MDRD (S/P/Bld) [Vol rate/Area] 70 mL/min/{1.73_m2} Normal >60 [facility] Comment on above: Result Comment: mL/m in/1.73m2 CKD-EPI Creatinine Equation (2020) Performed By: #### L 501.5200, L501.2300, L500.2500, L100.0100 ####[facility] [address] [place], [address] Glucose [Mass/Vol] 97 mg/dL Normal 70-99 [facility] Comment on above: Performed By: #### L 501.5200, L501.2300, L500.2500, L100.0100 ####[facility] [address] [place], [address] Potassium [Moles/Vol] 4.1 mmol/L Normal 3.3-5.1 [facility] Comment on above: Performed By: #### L 501.5200, L501.2300, L500.2500, L100.0100 ####[facility] [address] [place], [address] Sodium [Moles/Vol] 142 mmol/L Normal 133-145 [facility] Comment on above: Performed By: #### L 501.5200, L501.2300, L500.2500, L100.0100 ####[facility] [address] [place], [address] Urea nitrogen [Mass/Vol] 22 mg/dL High 4-19 [facility] Comment on above: Performed By: #### L 501.5200, L501.2300, L500.2500, L100.0100 ####[facility] [address] [place], [address] Basophil percentageOrdered B y: Lisha Talamantes on 12-15-2024 Basophils/100 WBC (Bld) 0.2 % 0-1 [facility] CBC W/Diff, Automatedon 11-18 Absolute Lymph 0.82 X10 3/uL Low 0.83-4.51 [facility] Comment on above: Performed By: #### L 501.5200, L501.2300, L500.2500, L100.0100 ####[facility] [address] [place], [address] Absolute Neut 7.0 X10 3/uL Normal 2.0-7.7 [facility] Comment on above: Performed By: #### L 501.5200, L501.2300, L500.2500, L100.0100 ####[facility] [address] [place], [address] Basophils/100 WBC (Bld) 0.2 % Normal 0-1 [facility] Comment on above: Performed By: #### L 501.5200, L501.2300, L500.2500, L100.0100 ####[facility] [address] [place], [address] Eosinophils/100 WBC (Bld) 0.0 % Normal 0-5 [facility] Comment on above: Performed By: #### L 501.5200, L501.2300, L500.2500, L100.0100 ####[facility] [address] [place], [address] Erythrocyte distribution width (RBC) [Ratio] 13.8 % Normal 11.6-14.6 [facility] Comment on above: Performed By: #### L 501.5200, L501.2300, L500.2500, L100.0100 ####[facility] [address] [place], [address] Hematocrit (Bld) [Volume fraction] 35.6 % Low 40-54 [facility] Comment on above: Performed By: #### L 501.5200, L501.2300, L500.2500, L100.0100 ####[facility] [address] [place], [address] Hemoglobin (Bld) [Mass/Vol] 11.3 g/dL Low 13.0-16.5 [facility] Comment on above: Performed By: #### L 501.5200, L501.2300, L500.2500, L100.0100 ####[facility] [address] [place], [address] IG% 0.400 Normal 0.0-0.9 [facility] Comment on above: Result Comment: IG% - Immature Granulocytes (promyelocytes, myelocytes andmetamyelocytes) > 1% indicates that a LEFT SHIFT is Present. Performed By: #### L 501.5200, L501.2300, L500.2500, L100.0100 ####[facility] [address] [place], [address] Lymphocytes/100 WBC (Bld) 9.8 % Low 19-41 [facility] Comment on above: Performed By: #### L 501.5200, L501.2300, L500.2500, L100.0100 ####[facility] [address] [place], [address] MCH (RBC) [Entitic mass] 28.2 pg Normal 27.0-32.0 [facility] Comment on above: Performed By: #### L 501.5200, L501.2300, L500.2500, L100.0100 ####[facility] [address] [place], [address] MCHC (RBC) [Mass/Vol] 31.7 g/dL Low 32-36 [facility] Comment on above: Performed By: #### L 501.5200, L501.2300, L500.2500, L100.0100 ####[facility] [address] [place], [address] MCV (RBC) [Entitic vol] 88.8 fL Normal 80-94 [facility] Comment on above: Performed By: #### L 501.5200, L501.2300, L500.2500, L100.0100 ####[facility] [address] [place], [address] Monocytes/100 WBC (Bld) 6.3 % Normal 0-10 [facility] Comment on above: Performed By: #### L 501.5200, L501.2300, L500.2500, L100.0100 ####[facility] [address] [place], [address] Neutrophils/100 WBC (Bld) 83.3 % High 47-70 [facility] Comment on above: Performed By: #### L 501.5200, L501.2300, L500.2500, L100.0100 ####[facility] [address] [place], [address] Nucleated RBC (Bld) [#/Vol] 0 10*3/uL Normal 0-5 [facility] Comment on above: Performed By: #### L 501.5200, L501.2300, L500.2500, L100.0100 ####[facility] [address] [place], [address] Platelet mean volume (Bld) [Entitic vol] 10.0 fL Normal 6.2-12.0 [facility] Comment on above: Performed By: #### L 501.5200, L501.2300, L500.2500, L100.0100 ####[facility] [address] [place], [address] Platelets (Bld) [#/Vol] 329 10*3/uL Normal 150-450 [facility] Comment on above: Performed By: #### L 501.5200, L501.2300, L500.2500, L100.0100 ####[facility] [address] [place], [address] RBC (Bld) [#/Vol] 4.01 10*6/uL Low 4.6-6.2 [facility] Comment on above: Performed By: #### L 501.5200, L501.2300, L500.2500, L100.0100 ####[facility] [address] [place], [address] RDW SD 44.9 fl High 35.1-43.9 [facility] Comment on above: Performed By: #### L 501.5200, L501.2300, L500.2500, L100.0100 ####[facility] [address] [place], [address] WBC (Bld) [#/Vol] 8.4 10*3/uL Normal 4.4-11.0 [facility] Comment on above: Performed By: #### L 501.5200, L501.2300, L500.2500, L100.0100 ####[facility] [address] [place], [place], [address] Eosinophil percentageOrdered By: Lisha Talamantes on 12-15-2024 Eosinophils/100 WBC (Bld) 0.0 % 0-5 [facility] Erythrocyte distribution wid th ratioOrdered By: Lisha Talamantes on 12-15-2024 Erythrocyte distribution width (RBC) [Ratio] 13.8 % 11.6-14.6 [facility] Erythrocyte distribution wid th standard deviationOrdered By: Lisha Talamantes on 12-15-2024 Erythrocyte distribution width (RBC) [Ratio] 44.9 fl High 35.1-43.9 [facility] Hematocrit Auto (Bld) [Volum e fraction]Ordered By: Lisha Talamanets on 12-15-2024 Hematocrit (Bld) [Volume fraction] 35.6 % Low 40-54 [facility] Hemoglobin measurementOrdere d By: Lisha Talamantes on 12-15-2024 Hemoglobin (Bld) [Mass/Vol] 11.3 g/dL Low 13.0-16.5 [facility] Immature granulocytes/100 WB C Auto (Bld)Ordered By: Lisha Talamantes on 12-15-2024 Immature granulocytes/100 WBC (Bld) 0.400 % 0.0-0.9 [facility] MCV (mean corpuscular volume ) determinationOrdered By: Lisha Talamantes on 12-15-2024 MCV (RBC) [Entitic vol] 88.8 fL 80-94 [facility] Magnesiumon 12-15-2024 Magnesium [Mass/Vol] 2.0 mg/dL Normal 1.5-2.2 [facility] Comment on above: Performed By: #### L 501.5200, L501.2300, L500.2500, L100.0100 ####[facility] [address] [place], [place], [id number] Magnesium measurement (mass/ volume)Ordered By: Lisha Talamantes on 12-15-2024 Magnesium (Unsp spec) [Mass/Vol] 2.0 mg/dL 1.5-2.2 [facility] Mean corpuscular hemoglobin (MCH) determinationOrdered By: Lisha Talamantes on 12-15-2024 MCH (RBC) [Entitic mass] 28.2 pg 27.0-32.0 [facility] Monocyte percentageOrdered B y: Lisha Talamantes on 12-15-2024 Monocytes/100 WBC (Bld) 6.3 % 0-10 [facility] Neutrophil percentageOrdered By: Lisha Talamantes on 12-15-2024 Neutrophils/100 WBC (Bld) 83.3 % High 47-70 [facility] Phosphoruson 12-15-2024 Phosphate [Mass/Vol] 3.3 mg/dL Normal 2.7-4.5 [facility] Comment on above: Performed By: #### L 501.5200, L501.2300, L500.2500, L100.0100 ####[facility] [address] [place], [address] Platelet countOrdered By: Sierra Talamantes on 12-15-2024 Platelets (Bld) [#/Vol] 329 10*3/uL 150-450 [facility] RBC Auto (Bld) [#/Vol]Ordere d By: Lisha Talamantes on 12-15-2024 RBC (Bld) [#/Vol] 4.01 10*6/uL Low 4.6-6.2 [facility] White blood cell (WBC) count Ordered By: Lisha Talamantes on 12-15-2024 WBC (Bld) [#/Vol] 8.4 10*3/uL 4.4-11.0 [facility] Bilirubin, totalOrdered By: Shilpa Contreras on 12-14-2024 Bilirubin [Mass/Vol] mg/dL 0.00-1.30 [facility] CBC W/Diff, Automatedon 11-18 Absolute Lymph 0.65 X10 3/uL Low 0.83-4.51 [facility] Comment on above: Performed By: #### L 300.3900, L100.0100, L500.4050 ####[facility] [address] [place], [address] Absolute Neut 3.4 X10 3/uL Normal 2.0-7.7 [facility] Comment on above: Performed By: #### L 300.3900, L100.0100, L500.4050 ####[facility] [address] [place], [address] Basophils/100 WBC (Bld) 0.2 % Normal 0-1 [facility] Comment on above: Performed By: #### L 300.3900, L100.0100, L500.4050 ####[facility] [address] [place], [address] Eosinophils/100 WBC (Bld) 0.0 % Normal 0-5 [facility] Comment on above: Performed By: #### L 300.3900, L100.0100, L500.4050 ####[facility] [address] [place], [address] Erythrocyte distribution width (RBC) [Ratio] 13.7 % Normal 11.6-14.6 [facility] Comment on above: Performed By: #### L 300.3900, L100.0100, L500.4050 ####[facility] [address] [place], [address] Hematocrit (Bld) [Volume fraction] 33.7 % Low 40-54 [facility] Comment on above: Performed By: #### L 300.3900, L100.0100, L500.4050 ####[facility] [address] [place], [address] Hemoglobin (Bld) [Mass/Vol] 10.6 g/dL Low 13.0-16.5 [facility] Comment on above: Performed By: #### L 300.3900, L100.0100, L500.4050 ####[facility] [address] [place], [address] IG% 0.200 Normal 0.0-0.9 [facility] Comment on above: Result Comment: IG% - Immature Granulocytes (promyelocytes, myelocytes andmetamyelocytes) > 1% indicates that a LEFT SHIFT is Present. Performed By: #### L 300.3900, L100.0100, L500.4050 ####[facility] [address] [place], [address] Lymphocytes/100 WBC (Bld) 15.0 % Low 19-41 [facility] Comment on above: Performed By: #### L 300.3900, L100.0100, L500.4050 ####[facility] [address] [place], [address] MCH (RBC) [Entitic mass] 27.8 pg Normal 27.0-32.0 [facility] Comment on above: Performed By: #### L 300.3900, L100.0100, L500.4050 ####[facility] [address] [place], [address] MCHC (RBC) [Mass/Vol] 31.5 g/dL Low 32-36 [facility] Comment on above: Performed By: #### L 300.3900, L100.0100, L500.4050 ####[facility] [address] [place], [address] MCV (RBC) [Entitic vol] 88.5 fL Normal 80-94 [facility] Comment on above: Performed By: #### L 300.3900, L100.0100, L500.4050 ####[facility] [address] [place], [address] Monocytes/100 WBC (Bld) 5.3 % Normal 0-10 [facility] Comment on above: Performed By: #### L 300.3900, L100.0100, L500.4050 ####[facility] [address] [place], [address] Neutrophils/100 WBC (Bld) 79.3 % High 47-70 [facility] Comment on above: Performed By: #### L 300.3900, L100.0100, L500.4050 ####[facility] [address] [place], [address] Nucleated RBC (Bld) [#/Vol] 0 10*3/uL Normal 0-5 [facility] Comment on above: Performed By: #### L 300.3900, L100.0100, L500.4050 ####[facility] [address] [place], [address] Platelet mean volume (Bld) [Entitic vol] 10.1 fL Normal 6.2-12.0 [facility] Comment on above: Performed By: #### L 300.3900, L100.0100, L500.4050 ####[facility] [address] [place], [address] Platelets (Bld) [#/Vol] 306 10*3/uL Normal 150-450 [facility] Comment on above: Performed By: #### L 300.3900, L100.0100, L500.4050 ####[facility] [address] [place], [address] RBC (Bld) [#/Vol] 3.81 10*6/uL Low 4.6-6.2 [facility] Comment on above: Performed By: #### L 300.3900, L100.0100, L500.4050 ####[facility] [address] [place], [address] RDW SD 44.5 fl High 35.1-43.9 [facility] Comment on above: Performed By: #### L 300.3900, L100.0100, L500.4050 ####[facility] [address] [place], [address] WBC (Bld) [#/Vol] 4.3 10*3/uL Low 4.4-11.0 [facility] Comment on above: Performed By: #### L 300.3900, L100.0100, L500.4050 ####[facility] [address] [place], [address] Comprehensive Metabolic Prof ilon 12-14-2024 ALK PHOS 70 U/L Normal 40-129 [facility] Comment on above: Performed By: #### L 300.3900, L100.0100, L500.4050 ####[facility] [address] [place], [address] AST [Catalytic activity/Vol] 18 U/L Normal <=37 [facility] Comment on above: Performed By: #### L 300.3900, L100.0100, L500.4050 ####[facility] [address] [place], [address] BUN/CRE 12.3 RATIO Normal 10-20 [facility] Comment on above: Performed By: #### L 300.3900, L100.0100, L500.4050 ####[facility] [address] [place], [address] Calcium [Mass/Vol] 9.5 mg/dL Normal 7.6-11.0 [facility] Comment on above: Performed By: #### L 300.3900, L100.0100, L500.4050 ####[facility] [address] [place], [address] Chloride [Moles/Vol] 105 mmol/L Normal 98-108 [facility] Comment on above: Performed By: #### L 300.3900, L100.0100, L500.4050 ####[facility] [address] [place], [address] CO2 [Moles/Vol] 24.4 mmol/L Normal 21.0-32.0 [facility] Comment on above: Performed By: #### L 300.3900, L100.0100, L500.4050 ####[facility] [address] [place], [address] Creatinine [Mass/Vol] 1.04 mg/dL Normal 0.70-1.20 [facility] Comment on above: Performed By: #### L 300.3900, L100.0100, L500.4050 ####[facility] [address] [place], [address] ECRCL 59.38 ml/min Normal 50-250 [facility] Comment on above: Performed By: #### L 300.3900, L100.0100, L500.4050 ####[facility] [address] [place], [address] GAP 13 Normal 5-15 [facility] Comment on above: Performed By: #### L 300.3900, L100.0100, L500.4050 ####[facility] [address] [place], [address] GFR/1.73 sq M.predicted among non-blacks MDRD (S/P/Bld) [Vol rate/Area] 75 mL/min/{1.73_m2} Normal >60 [facility] Comment on above: Result Comment: mL/m in/1.73m2 CKD-EPI Creatinine Equation (2020) Performed By: #### L 300.3900, L100.0100, L500.4050 ####[facility] [address] [place], [address] Glucose [Mass/Vol] 129 mg/dL High 70-99 [facility] Comment on above: Performed By: #### L 300.3900, L100.0100, L500.4050 ####[facility] [address] [place], [address] Potassium [Moles/Vol] 3.8 mmol/L Normal 3.3-5.1 [facility] Comment on above: Performed By: #### L 300.3900, L100.0100, L500.4050 ####[facility] [address] [place], [address] Sodium [Moles/Vol] 143 mmol/L Normal 133-145 [facility] Comment on above: Performed By: #### L 300.3900, L100.0100, L500.4050 ####[facility] [address] [place], [address] T BILI < 0.15 Normal 0.00-1.30 [facility] Comment on above: Performed By: #### L 300.3900, L100.0100, L500.4050 ####[facility] [address] [place], [address] T PROT 6.6 g/dL Normal 5.9-8.4 [facility] Comment on above: Performed By: #### L 300.3900, L100.0100, L500.4050 ####[facility] [address] [place], [address] Urea nitrogen [Mass/Vol] 13 mg/dL Normal 4-19 [facility] Comment on above: Performed By: #### L 300.3900, L100.0100, L500.4050 ####[facility] [address] [place], [address] No Panel InformationOrdered By: Shilpa Contreras on 12-14-2024 18 U/L <38 [facility] Prothrombin Time w/INRon INR Coag (PPP) [Relative time] 1.0 {INR} Normal [facility] Comment on above: Performed By: #### L 300.3900, L100.0100, L500.4050 ####[facility] [address] [place], [address] PT Coag (PPP) [Time] 13.5 s Normal 11.7-14.9 [facility] Comment on above: Performed By: #### L 300.3900, L100.0100, L500.4050 ####[facility] [address] [place], [address] Prothrombin timeOrdered By: Shilpa Contreras on 12-14-2024 PT Coag (PPP) [Time] 13.5 s 11.7-14.9 [facility] RESPIRATORY PANEL MOLECULARo n 12-14-2024 RP PANEL Normal [facility] Comment on above: Performed By: #### M 100.638 ####[facility] [address] [place], [address] Serum globulin measurementOr dered By: Shilpa Contreras on 12-14-2024 Globulin (S) [Mass/Vol] 2.5 g/dL Normal 2.2-4.2 [facility] Comment on above: Performed By: #### L 300.3900, L100.0100, L500.4050 ####[facility] [address] [place], [address] Serum or plasma alanine saul otransferase (ALT) measurementOrdered By: Shilpa Contreras on 12-14-2024 ALT [Catalytic activity/Vol] 16 U/L Normal <=46 [facility] Comment on above: Performed By: #### L 300.3900, L100.0100, L500.4050 ####[facility] [address] [place], [address] Serum or plasma albumin luis urement (mass/volume)Ordered By: Shilpa Contreras on 12-14-2024 Albumin [Mass/Vol] 4.0 g/dL Normal 3.4-4.8 [facility] Comment on above: Performed By: #### L 300.3900, L100.0100, L500.4050 ####[facility] [address] [place], [address] Serum or plasma albumin/glob ulin mass ratioOrdered By: Shilpa Contreras on 12-14-2024 Albumin/Globulin [Mass ratio] 1.6 {ratio} Normal 0.9-2.4 [facility] Comment on above: Performed By: #### L 300.3900, L100.0100, L500.4050 ####[facility] [address] [place], [address] Serum or plasma alkaline kathleen sphatase measurementOrdered By: Shilpa Contreras on 12-14-2024 ALP [Catalytic activity/Vol] 70 U/L 40-129 [facility] Total proteinOrdered By: Roverto Contreras on 12-14-2024 Protein [Mass/Vol] 6.6 g/dL 5.9-8.4 [facility] Absolute lymphocyte countOrd ered By: Charis Walker on 12-13-2024 Lymphocytes Auto (Unsp spec) [#/Vol] 1.16 10*3/uL 0.83-4.51 [facility] Absolute neutrophil countOrd ered By: Charis Walker on 12-13-2024 Neutrophils (Bld) [#/Vol] 4.0 10*3/uL 2.0-7.7 [facility] Anion gap in Serum or Plasma Ordered By: Charis Walker on 12-13-2024 Anion gap [Moles/Vol] 13 mmol/L 5-15 [facility] Automated lymphocyte count a s percentage of total leukocytesOrdered By: Charis Walker on 12-13-2024 Lymphocytes/100 WBC Auto (Unsp spec) 19.5 % 19-41 [facility] BUN/creatinine ratioOrdered By: Charis Walker on 12-13-2024 Urea nitrogen/Creatinine [Mass ratio] 11.0 mg/mg 10-20 [facility] Basic Metabolic Profile (BMP )on 12-13-2024 BUN/CRE 11.0 RATIO Normal 10-20 [facility] Comment on above: Performed By: #### L 100.0100, L500.2500 ####[facility] [address] [place], [address] Calcium [Mass/Vol] 9.7 mg/dL Normal 7.6-11.0 [facility] Comment on above: Performed By: #### L 100.0100, L500.2500 ####[facility] [address] [place], [address] Chloride [Moles/Vol] 104 mmol/L Normal 98-108 [facility] Comment on above: Performed By: #### L 100.0100, L500.2500 ####[facility] [address] [place], [address] CO2 [Moles/Vol] 24.4 mmol/L Normal 21.0-32.0 [facility] Comment on above: Performed By: #### L 100.0100, L500.2500 ####[facility] [address] [place], [address] Creatinine [Mass/Vol] 1.11 mg/dL Normal 0.70-1.20 [facility] Comment on above: Performed By: #### L 100.0100, L500.2500 ####[facility] [address] [place], [address] ECRCL 55.63 ml/min Normal 50-250 [facility] Comment on above: Performed By: #### L 100.0100, L500.2500 ####[facility] [address] [place], [address] GAP 13 Normal 5-15 [facility] Comment on above: Performed By: #### L 100.0100, L500.2500 ####[facility] [address] [place], [address] GFR/1.73 sq M.predicted among non-blacks MDRD (S/P/Bld) [Vol rate/Area] 69 mL/min/{1.73_m2} Normal >60 [facility] Comment on above: Result Comment: mL/m in/1.73m2 CKD-EPI Creatinine Equation (2020) Performed By: #### L 100.0100, L500.2500 ####[facility] [address] [place], [address] Glucose [Mass/Vol] 102 mg/dL High 70-99 [facility] Comment on above: Performed By: #### L 100.0100, L500.2500 ####[facility] [address] [place], [address] Potassium [Moles/Vol] 3.7 mmol/L Normal 3.3-5.1 [facility] Comment on above: Performed By: #### L 100.0100, L500.2500 ####[facility] [address] [place], [address] Sodium [Moles/Vol] 141 mmol/L Normal 133-145 [facility] Comment on above: Performed By: #### L 100.0100, L500.2500 ####[facility] [address] [place], [address] Urea nitrogen [Mass/Vol] 12 mg/dL Normal 4-19 [facility] Comment on above: Performed By: #### L 100.0100, L500.2500 ####[facility] [address] [place], [address] Basophil percentageOrdered B y: Remus Ungur on 12-13-2024 Basophils/100 WBC (Bld) 1.0 % 0-1 [facility] Blood cultureOrdered By: Rem us Ungur on 12-13-2024 Bacteria identified Cx Nom (Bld) No growth in 5 days. [facility] Bacteria identified Cx Nom (Bld) No growth in 5 days. [facility] CBC W/Diff, Automatedon 06-2 -2024 Absolute Lymph 1.16 X10 3/uL Normal 0.83-4.51 [facility] Comment on above: Performed By: #### L 100.0100, L500.2500 ####[facility] [address] [place], [address] Absolute Neut 4.0 X10 3/uL Normal 2.0-7.7 [facility] Comment on above: Performed By: #### L 100.0100, L500.2500 ####[facility] [address] [place], [address] Basophils/100 WBC (Bld) 1.0 % Normal 0-1 [facility] Comment on above: Performed By: #### L 100.0100, L500.2500 ####[facility] [address] [place], [address] Eosinophils/100 WBC (Bld) 3.0 % Normal 0-5 [facility] Comment on above: Performed By: #### L 100.0100, L500.2500 ####[facility] [address] [place], [address] Erythrocyte distribution width (RBC) [Ratio] 13.7 % Normal 11.6-14.6 [facility] Comment on above: Performed By: #### L 100.0100, L500.2500 ####[facility] [address] [place], [address] Hematocrit (Bld) [Volume fraction] 37.5 % Low 40-54 [facility] Comment on above: Performed By: #### L 100.0100, L500.2500 ####[facility] [address] [place], [address] Hemoglobin (Bld) [Mass/Vol] 11.5 g/dL Low 13.0-16.5 [facility] Comment on above: Performed By: #### L 100.0100, L500.2500 ####[facility] [address] [place], [address] IG% 0.300 Normal 0.0-0.9 [facility] Comment on above: Result Comment: IG% - Immature Granulocytes (promyelocytes, myelocytes andmetamyelocytes) > 1% indicates that a LEFT SHIFT is Present. Performed By: #### L 100.0100, L500.2500 ####[facility] [address] [place], [address] Lymphocytes/100 WBC (Bld) 19.5 % Normal 19-41 [facility] Comment on above: Performed By: #### L 100.0100, L500.2500 ####[facility] [address] [place], [address] MCH (RBC) [Entitic mass] 27.7 pg Normal 27.0-32.0 [facility] Comment on above: Performed By: #### L 100.0100, L500.2500 ####[facility] [address] [place], [address] MCHC (RBC) [Mass/Vol] 30.7 g/dL Low 32-36 [facility] Comment on above: Performed By: #### L 100.0100, L500.2500 ####[facility] [address] [place], [address] MCV (RBC) [Entitic vol] 90.4 fL Normal 80-94 [facility] Comment on above: Performed By: #### L 100.0100, L500.2500 ####[facility] [address] [place], [address] Monocytes/100 WBC (Bld) 8.9 % Normal 0-10 [facility] Comment on above: Performed By: #### L 100.0100, L500.2500 ####[facility] [address] [place], [address] Neutrophils/100 WBC (Bld) 67.3 % Normal 47-70 [facility] Comment on above: Performed By: #### L 100.0100, L500.2500 ####[facility] [address] [place], [address] Nucleated RBC (Bld) [#/Vol] 0 10*3/uL Normal 0-5 [facility] Comment on above: Performed By: #### L 100.0100, L500.2500 ####[facility] [address] [place], [address] Platelet mean volume (Bld) [Entitic vol] 9.7 fL Normal 6.2-12.0 [facility] Comment on above: Performed By: #### L 100.0100, L500.2500 ####[facility] [address] [place], [address] Platelets (Bld) [#/Vol] 299 10*3/uL Normal 150-450 [facility] Comment on above: Performed By: #### L 100.0100, L500.2500 ####[facility] [address] [place], [address] RBC (Bld) [#/Vol] 4.15 10*6/uL Low 4.6-6.2 [facility] Comment on above: Performed By: #### L 100.0100, L500.2500 ####[facility] [address] [place], [address] RDW SD 44.8 fl High 35.1-43.9 [facility] Comment on above: Performed By: #### L 100.0100, L500.2500 ####[facility] [address] [place], [address] WBC (Bld) [#/Vol] 5.9 10*3/uL Normal 4.4-11.0 [facility] Comment on above: Performed By: #### L 100.0100, L500.2500 ####[facility] [address] [place], [address] CO2 (BldV) [Moles/Vol]Ordere d By: Shilpa White on 12-13-2024 CO2 [Moles/Vol] 28 mmol/L 23-33 [facility] Carbon dioxide, total [Moles /volume] in Central venous bloodOrdered By: Charis Walker on 12-13-2024 CO2 [Moles/Vol] 24.4 mmol/L 21.0-32.0 [facility] Chest 1 View (Portable)on Chest 1 View (Portable) Normal [facility] Chloride assayOrdered By: Ame Walker on 12-13-2024 Chloride [Moles/Vol] 104 mmol/L 98-108 [facility] Emergency Department Summary on 12-13-2024 Emergency Department Summary Normal [facility] Eosinophil percentageOrdered By: Charis Walker on 12-13-2024 Eosinophils/100 WBC (Bld) 3.0 % 0-5 [facility] Erythrocyte distribution wid th ratioOrdered By: Charis Walker on 12-13-2024 Erythrocyte distribution width (RBC) [Ratio] 13.7 % 11.6-14.6 [facility] Erythrocyte distribution wid th standard deviationOrdered By: Charis Walker on 12-13-2024 Erythrocyte distribution width (RBC) [Ratio] 44.8 fl High 35.1-43.9 [facility] Glomerular filtration rate ( GFR) estimation/1.73 sq m using serum, plasma, or whole bOrdered By: Charis Walker on 12-13-2024 GFR/1.73 sq M.predicted among non-blacks MDRD (S/P/Bld) [Vol rate/Area] 69 mL/min/{1.73_m2} >60 [facility] Comment on above: mL/min/1.73m2 CKD-EP I Creatinine Equation (2020) H AND P Exam - [facility] 12-13-2024 H&P Exam - Hospitalist Normal [facility] Hematocrit Auto (Bld) [Volum e fraction]Or[facility] 12-13-2024 Hematocrit (Bld) [Volume fraction] 37.5 % Low 40-54 [facility] Hemoglobin measurementOrdere d By: [facility] on 12-13-2024 Hemoglobin (Bld) [Mass/Vol] 11.5 g/dL Low 13.0-16.5 [facility] Immature granulocytes/100 WB C Auto (Bld)Ordered By: [facility] on 12-13-2024 Immature granulocytes/100 WBC (Bld) 0.300 % 0.0-0.9 [facility] Comment on above: IG% - Immature Granu locytes (promyelocytes, myelocytes and metamyelocytes) > 1% indicates that a LEFT SHIFT is Present. Influenza virus A and B and SARS-CoV-2 (COVID-19) and Respiratory syncytial virus RNAOrdered By: [facility] on 12-13-2024 SARS-CoV-2 (COVID-19) RNA ALEENA+probe Ql (Unsp spec) [facility] International normalized rat io (INR) calculationOrdered By: [facility] on 12-13-2024 INR Coag (Bld) [Relative time] 0.9 {INR} [facility] L509.7001on 12-13-2024 Procalcitonin 0.05 ng/mL Normal <=0.10 [facility] Comment on above: Result Comment: Inte rpretation:<0.10-0.25 ng/mL: Antibiotic therapy discouraged. Bacterialinfection unlikely.0.25-0.50 ng/mL: Antibiotic therapy encouraged. Bacterialinfection possible.>0.50 ng/mL: Antibiotic therapy strongly encouraged.Suggestive of presence of bacterial infection.PCT should always be interpreted in the clinical context ofthe patient. Therefore, clinicians should use the PCTresults in conjunction with other laboratory findings andclinical signs of the patient. Performed By: #### L 509.9722 ####[facility] [address] [place], [address] M100.678on 12-13-2024 M100.678 Pending SARS-CoV-2 (COVID 19) Negative INFLUENZA A Negative INFLUENZA B Negative RSV PCR Negative Normal [facility] Comment on above: Performed By: #### M [id number] ####[facility] [address] [place], [address] MCV (mean corpuscular volume ) determinationOrdered By: Charis Walker on 12-13-2024 MCV (RBC) [Entitic vol] 90.4 fL 80-94 [facility] Mean corpuscular hemoglobin (MCH) determinationOrdered By: Charis Ungkevin on 12-13-2024 MCH (RBC) [Entitic mass] 27.7 pg 27.0-32.0 [facility] Mean corpuscular hemoglobin concentration (MCHC) determinationOrdered By: Charis Ungkevin on 12-13-2024 MCHC (RBC) [Mass/Vol] 30.7 g/dL Low 32-36 [facility] Mean platelet volume determi nationOrdered By: Charis Walker on 12-13-2024 Platelet mean volume (Bld) [Entitic vol] 9.7 fL 6.2-12.0 [facility] Monocyte percentageOrdered B y: Charis Walker on 12-13-2024 Monocytes/100 WBC (Bld) 8.9 % 0-10 [facility] Neutrophil percentageOrdered By: Charis Walker on 12-13-2024 Neutrophils/100 WBC (Bld) 67.3 % 47-70 [facility] No Panel InformationOrdered By: Shilpa White on 12-13-2024 Blood Gas Sample Site Not entered [facility] Blood Gas Specimen Type LASHAE [facility] Oxygen Delivery Device Cannula [facility] LASHAE [facility] Not entered [facility] Cannula [facility] Nucleated red blood cell per centageOrdered By: Charis Walker on 12-13-2024 Nucleated RBC/100 WBC (Bld) [Ratio] 0 % 0-5 [facility] Platelet countOrdered By: Ame Walker on 12-13-2024 Platelets (Bld) [#/Vol] 299 10*3/uL 150-450 [facility] Potassium measurement (mass/ volume)Ordered By: Charis Walker on 12-13-2024 Potassium (Unsp spec) [Mass/Vol] 3.7 mmol/L 3.3-5.1 [facility] Procalcitonin [Mass/volume] in Serum or Plasma by ImmunoassayOrdered By: Shilpa Contreras on 12-13-2024 Procalcitonin IA [Mass/Vol] 0.05 ng/mL <0.11 [facility] Prothrombin Time w/INRon INR Coag (PPP) [Relative time] 0.9 {INR} Normal [facility] Comment on above: Performed By: #### L 300.3900 ####[facility] [address] [place], [address] PT Coag (PPP) [Time] 12.5 s Normal 11.7-14.9 [facility] Comment on above: Performed By: #### L 300.3900 ####[facility] [address] [place], [address] Prothrombin timeOrdered By: Charis Walker on 12-13-2024 PT Coag (PPP) [Time] 12.5 s 11.7-14.9 [facility] RBC Auto (Bld) [#/Vol]Ordere d By: Charis Walker on 12-13-2024 RBC (Bld) [#/Vol] 4.15 10*6/uL Low 4.6-6.2 [facility] Respiratory pathogens detect ion panel by molecular detection methodOrdered By: Shilpa Contreras on 12-13-2024 Respiratory pathogens DNA and RNA panel ALEENA+probe (Resp) [facility] Serum creatinine measurement (mass/volume)Ordered By: Charis Walker on 12-13-2024 Creatinine [Mass/Vol] 1.11 mg/dL 0.70-1.20 [facility] [facility] Serum glucose measurement (m ass/volume)Ordered By: Charis Walker on 12-13-2024 Glucose [Mass/Vol] 102 mg/dL High 70-99 [facility] Serum or plasma calcium luis urement (mass/volume)Ordered By: Charis Walker on 12-13-2024 Calcium [Mass/Vol] 9.7 mg/dL 7.6-11.0 [facility] Serum or plasma urea nitroge n measurement (mass/volume)Ordered By: Charis Walker on 12-13-2024 Urea nitrogen [Mass/Vol] 12 mg/dL 4-19 [facility] Sodium levelOrdered By: Nelson Walker on 12-13-2024 Sodium [Moles/Vol] 141 mmol/L 133-145 [facility] Venous Blood Gason 5 Blood Gas Type LASHAE Normal [facility] Comment on above: Performed By: #### L 900.0810 ####[facility] [address] [place], [address] CO2 [Moles/Vol] 28 mmol/L Normal 23-33 [facility] Comment on above: Performed By: #### L 900.0810 ####[facility] [address] [place], [address] FI02 4.0 Normal [facility] Comment on above: Performed By: #### L 9000.0810 ####[facility] [address] [place], [address] HCO3 (Bld) [Moles/Vol] 26 mmol/L Normal 22-26 [facility] Comment on above: Performed By: #### L 900.0810 ####[facility] [address] [place], [address] O2 Delivery Dev Cannula Normal [facility] Comment on above: Performed By: #### L 9000.0810 ####[facility] [address] [place], [address] SITE Not entered [facility] Comment on above: Performed By: #### L 900.0810 ####[facility] [address] [place], [address] VBG BE 2 mmol/L Normal -1.0-3.5 [facility] Comment on above: Performed By: #### L 9000.0810 ####[facility] [address] [place], [place], [address] VBG pCO2 42.7 mmHg Normal 41-51 [facility] Comment on above: Performed By: #### L 9000.0810 ####[facility] [address] [place], [place], [address] VBG pH 7.40 Normal 7.32-7.42 [facility] Comment on above: Performed By: #### L 9000.0810 ####[facility] [address] [place], [address] VBG PO2 56 mmHg High 25-40 [facility] Comment on above: Performed By: #### L 9000.0810 ####[facility] [address] [place], [address] VBG SO2 89 High 50-70 [facility] Comment on above: Performed By: #### L 9000.0810 ####[facility] [address] [place], [place], [address] Venous blood base excess arlyn surementOrdered By: Shilpa Contreras on 12-13-2024 Base excess Calc (BldV) [Moles/Vol] 2 mmol/L -1.0-3.5 [facility] Venous blood bicarbonate arlyn surementOrdered By: Shilpa Contreras on 12-13-2024 HCO3 (Bld) [Moles/Vol] 26 mmol/L 22-26 [facility] Venous blood oxygen saturati on measurementOrdered By: Shilpa Contreras on 12-13-2024 Oxygen saturation in Blood 89 % High 50-70 [facility] Venous blood pH measurementO rdered By: Shilpa Contreras on 12-13-2024 pH (BldV) 7.40 [pH] 7.32-7.42 [facility] Venous blood partial pressur e of carbon dioxide measurementOrdered By: Shilpa Contreras on 12-13-2024 CO2 (BldV) [Partial pressure] 42.7 mm[Hg] 41-51 [facility] Venous blood partial pressur e of oxygen measurementOrdered By: Shilpa Contreras on 12-13-2024 Oxygen (BldV) [Partial pressure] 56 mm[Hg] High 25-40 [facility] White blood cell (WBC) count Ordered By: Charis Barneskevin on 12-13-2024 WBC (Bld) [#/Vol] 5.9 10*3/uL 4.4-11.0 [facility] CBC W Auto Differential pane l (Bld)on 12-12-2024 Basophils (Bld) [#/Vol] 0.09 10*3/uL [facility] Basophils/100 WBC (Bld) 1.5 % [facility] Differential cell count method Nom (Bld) Auto [facility] Eosinophils (Bld) [#/Vol] 0.22 10*3/uL [facility] Eosinophils/100 WBC (Bld) 3.7 % [facility] Erythrocyte distribution width (RBC) [Ratio] 13.8 % 11.5 - 15.0 % [facility] Hematocrit (Bld) [Volume fraction] 38.3 % Low 39.0 - 51.0 % [facility] Hemoglobin (Bld) [Mass/Vol] 11.7 g/dL Low 13.0 - 17.0 g/dL [facility] Immature granulocytes (Bld) [#/Vol] [facility] Immature granulocytes/100 WBC (Bld) 0.3 % [facility] Interpretation and review of laboratory results Abnormal [facility] Lymphocytes (Bld) [#/Vol] 0.8 10*3/uL Low [facility] Lymphocytes/100 WBC (Bld) 13.6 % [facility] MCH (RBC) [Entitic mass] 27.9 pg 26. 0 - 34.0 pg [facility] MCHC (RBC) [Mass/Vol] 30.5 g/dL 30.5 - 36.0 g/dL [facility] MCV (RBC) [Entitic vol] 91.4 fL 80.0 - 100.0 fL [facility] Monocytes (Bld) [#/Vol] 0.51 10*3/uL [facility] Monocytes/100 WBC (Bld) 8.7 % [facility] Neutrophils (Bld) [#/Vol] 4.25 10*3/uL [facility] Neutrophils/100 WBC (Bld) 72.2 % [facility] Nucleated RBC (Bld) [#/Vol] NINF [facility] Nucleated RBC/100 WBC (Bld) [Ratio] 0 % /100 WBC [facility] Platelet mean volume (Bld) [Entitic vol] 10.5 fL 9.0 - 12.7 fL [facility] Platelets (Bld) [#/Vol] 310 10*3/uL [facility] RBC (Bld) [#/Vol] 4.19 10*6/uL Low 4.20 - 6.0 0 m/uL [facility] WBC (Bld) [#/Vol] 5.89 10*3/uL [facility] Anion gap in Serum or Plasma Ordered By: Carla Prather on 12-02-2024 Anion gap [Moles/Vol] 11 mmol/L 10-31 [facility] BUN/creatinine ratioOrdered By: Carla Prather on 12-02-2024 Urea nitrogen/Creatinine [Mass ratio] 23.5 mg/mg High 04-07 [facility] Basic Metabolic Profile (BMP )on 12-02-2024 BUN/CRE 23.5 RATIO High 04-07 [facility] Comment on above: Order Comment: 307.2 Performed By: #### L 100.0500, L500.2500, L506.1001 ####[facility] [address] [place], [address] Calcium [Mass/Vol] 9.4 mg/dL Normal 7.6-11.0 [facility] Comment on above: Order Comment: 307.2 Performed By: #### L 100.0500, L500.2500, L506.1001 ####[facility] [address] [place], [address] Chloride [Moles/Vol] 104 mmol/L Normal 98-108 [facility] Comment on above: Order Comment: 307.2 Performed By: #### L 100.0500, L500.2500, L506.1001 ####[facility] [address] [place], [address] CO2 [Moles/Vol] 25.5 mmol/L Normal 21.0-32.0 [facility] Comment on above: Order Comment: 307.2 Performed By: #### L 100.0500, L500.2500, L506.1001 ####[facility] [address] [place], [address] Creatinine [Mass/Vol] 1.21 mg/dL High 0.70-1.20 [facility] Comment on above: Order Comment: 307.2 Performed By: #### L 100.0500, L500.2500, L506.1001 ####[facility] [address] [place], [address] GAP 11 Normal 5-15 [facility] Comment on above: Order Comment: 307.2 Performed By: #### L 100.0500, L500.2500, L506.1001 ####[facility] [address] [place], [address] GFR/1.73 sq M.predicted among non-blacks MDRD (S/P/Bld) [Vol rate/Area] 62 mL/min/{1.73_m2} Normal >60 [facility] Comment on above: Order Comment: 307.2 Result Comment: mL/m in/1.73m2 CKD-EPI Creatinine Equation (2020) Performed By: #### L 100.0500, L500.2500, L506.1001 ####[facility] [address] [place], [address] Glucose [Mass/Vol] 86 mg/dL Normal 70-99 [facility] Comment on above: Order Comment: 307.2 Performed By: #### L 100.0500, L500.2500, L506.1001 ####[facility] [address] [place], [address] Potassium [Moles/Vol] 4.1 mmol/L Normal 3.3-5.1 [facility] Comment on above: Order Comment: 307.2 Performed By: #### L 100.0500, L500.2500, L506.1001 ####[facility] [address] [place], [address] Sodium [Moles/Vol] 141 mmol/L Normal 133-145 [facility] Comment on above: Order Comment: 307.2 Performed By: #### L 100.0500, L500.2500, L506.1001 ####[facility] [address] [place], [address] Urea nitrogen [Mass/Vol] 28 mg/dL High 4-19 [facility] Comment on above: Order Comment: 307.2 Performed By: #### L 100.0500, L500.2500, L506.1001 ####[facility] [address] [place], [address] CBC-Complete Blood Cnt No Di ffon 12-02-2024 Erythrocyte distribution width (RBC) [Ratio] 13.2 % Normal 11.6-14.6 [facility] Comment on above: Order Comment: 307.2 Performed By: #### L 100.0500, L500.2500, L506.1001 ####[facility] [address] [place], [address] Hematocrit (Bld) [Volume fraction] 35.2 % Low 40-54 [facility] Comment on above: Order Comment: 307.2 Performed By: #### L 100.0500, L500.2500, L506.1001 ####[facility] [address] [place], [address] Hemoglobin (Bld) [Mass/Vol] 11.1 g/dL Low 13.0-16.5 [facility] Comment on above: Order Comment: 307.2 Performed By: #### L 100.0500, L500.2500, L506.1001 ####[facility] [address] [place], [address] MCH (RBC) [Entitic mass] 28.6 pg Normal 27.0-32.0 [facility] Comment on above: Order Comment: 307.2 Performed By: #### L 100.0500, L500.2500, L506.1001 ####[facility] [address] [place], [address] MCHC (RBC) [Mass/Vol] 31.5 g/dL Low 32-36 [facility] Comment on above: Order Comment: 307.2 Performed By: #### L 100.0500, L500.2500, L506.1001 ####[facility] [address] [place], [address] MCV (RBC) [Entitic vol] 90.7 fL Normal 80-94 [facility] Comment on above: Order Comment: 307.2 Performed By: #### L 100.0500, L500.2500, L506.1001 ####[facility] [address] [place], [address] Platelet mean volume (Bld) [Entitic vol] 10.2 fL Normal 6.2-12.0 [facility] Comment on above: Order Comment: 307.2 Performed By: #### L 100.0500, L500.2500, L506.1001 ####[facility] [address] [place], [address] Platelets (Bld) [#/Vol] 314 10*3/uL Normal 150-450 [facility] Comment on above: Order Comment: 307.2 Performed By: #### L 100.0500, L500.2500, L506.1001 ####[facility] [address] [place], [address] RBC (Bld) [#/Vol] 3.88 10*6/uL Low 4.6-6.2 [facility] Comment on above: Order Comment: 307.2 Performed By: #### L 100.0500, L500.2500, L506.1001 ####[facility] [address] [place], [address] RDW SD 43.6 fl Normal 35.1-43.9 [facility] Comment on above: Order Comment: 307.2 Performed By: #### L 100.0500, L500.2500, L506.1001 ####[facility] [address] [place], [address] WBC (Bld) [#/Vol] 5.1 10*3/uL Normal 4.4-11.0 [facility] Comment on above: Order Comment: 307.2 Performed By: #### L 100.0500, L500.2500, L506.1001 ####[facility] [address] [place], [address] Carbon dioxide, total [Moles /volume] in Central venous bloodOrdered By: Carla Prather on 12-02-2024 CO2 [Moles/Vol] 25.5 mmol/L 21.0-32.0 [facility] Chloride assayOrdered By: Wilfredo Prather on 12-02-2024 Chloride [Moles/Vol] 104 mmol/L 98-108 [facility] Erythrocyte distribution wid th ratioOrdered By: Carla Prather on 12-02-2024 Erythrocyte distribution width (RBC) [Ratio] 13.2 % 11.6-14.6 [facility] Erythrocyte distribution wid th standard deviationOrdered By: Carla Prather on 12-02-2024 Erythrocyte distribution width (RBC) [Ratio] 43.6 fl 35.1-43.9 [facility] Glomerular filtration rate ( GFR) estimation/1.73 sq m using serum, plasma, or whole bOrdered By: Carla Prather on 12-02-2024 GFR/1.73 sq M.predicted among non-blacks MDRD (S/P/Bld) [Vol rate/Area] 62 mL/min/{1.73_m2} >60 [facility] Comment on above: mL/min/1.73m2 CKD-EP I Creatinine Equation (2020) Hematocrit Auto (Bld) [Volum e fraction]Ordered By: Carla Prather on 12-02-2024 Hematocrit (Bld) [Volume fraction] 35.2 % Low 40-54 [facility] Hemoglobin measurementOrdere d By: Carla Prather on 12-02-2024 Hemoglobin (Bld) [Mass/Vol] 11.1 g/dL Low 13.0-16.5 [facility] MCV (mean corpuscular volume ) determinationOrdered By: Carla Prather on 12-02-2024 MCV (RBC) [Entitic vol] 90.7 fL 80-94 [facility] Mean corpuscular hemoglobin (MCH) determinationOrdered By: Carla Prather on 12-02-2024 MCH (RBC) [Entitic mass] 28.6 pg 27.0-32.0 [facility] Mean corpuscular hemoglobin concentration (MCHC) determinationOrdered By: Carla Prather on 12-02-2024 MCHC (RBC) [Mass/Vol] 31.5 g/dL Low 32-36 [facility] Mean platelet volume determi nationOrdered By: Carla Prather on 12-02-2024 Platelet mean volume (Bld) [Entitic vol] 10.2 fL 6.2-12.0 [facility] Platelet countOrdered By: Wilfredo Prather on 12-02-2024 Platelets (Bld) [#/Vol] 314 10*3/uL 150-450 [facility] Potassium measurement (mass/ volume)Ordered By: Carla Prather on 12-02-2024 Potassium (Unsp spec) [Mass/Vol] 4.1 mmol/L 3.3-5.1 [facility] RBC Auto (Bld) [#/Vol]Ordere d By: Carla Prather on 12-02-2024 RBC (Bld) [#/Vol] 3.88 10*6/uL Low 4.6-6.2 [facility] Serum creatinine measurement (mass/volume)Ordered By: Carla Prather on 12-02-2024 Creatinine [Mass/Vol] 1.21 mg/dL High 0.70-1.20 [facility] Serum glucose measurement (m ass/volume)Ordered By: Carla Prather on 12-02-2024 Glucose [Mass/Vol] 86 mg/dL 70-99 [facility] Serum or plasma calcium luis urement (mass/volume)Ordered By: Carla Prather on 12-02-2024 Calcium [Mass/Vol] 9.4 mg/dL 7.6-11.0 [facility] Serum or plasma urea nitroge n measurement (mass/volume)Ordered By: Carla Prather on 12-02-2024 Urea nitrogen [Mass/Vol] 28 mg/dL High 4-19 [facility] Sodium levelOrdered By: Luca Prather on 12-02-2024 Sodium [Moles/Vol] 141 mmol/L 133-145 [facility] Vitamin D,25 Hydroxyon 12-02 Vitamin D 25-OH 46.6 ng/mL Normal 30-100 [facility] Comment on above: Order Comment: 307.2 Result Comment: Teri min D StatusDeficiency: <20 ng/mL (50nmol/L)Insufficiency: 20-30 ng/mL (50-75 nmol/L)Sufficiency: 30-100 ng/mL (75-250 nmol/L)Toxicity: >100 ng/mL (>250 nmol/L) Performed By: #### L 100.0500, L500.2500, L506.1001 ####[facility] [address] [place], [address] White blood cell (WBC) count Ordered By: Carla Prather on 12-02-2024 WBC (Bld) [#/Vol] 5.1 10*3/uL 4.4-11.0 [facility] Calculated very low density lipoprotein (VLDL) cholesterol measurementOrdered By: Carla Prather on 11-05-2024 Calculated very low density lipoprotein (VLDL) cholesterol measurement 13 mg/dL 5-40 [facility] LDL calc ser/plasOrdered By: Carla Prather on 11-05-2024 Cholesterol in LDL [Mass/Vol] 63 mg/dL [facility] Comment on above: Uaxrxjxpuf=830-598 m g/dL & Higher Sigk=302 mg/dL or greater Lipid Profileon 11-05-2024 CHOL:HDL 2.18 Normal [facility] Comment on above: Order Comment: 307.2 Performed By: #### L 500.4100, L506.1001 ####[facility] [address] [place], [address] Cholesterol [Mass/Vol] 140 mg/dL Normal <=200 [facility] Comment on above: Order Comment: 307.2 Result Comment: Chol esterol level, Desirable <200 mg/dLBorderline high cholesterol 200-239 mg/dLHigh cholesterol >=240 mg/dLRecommendations of the NCEP Adult Treatment Panel for thefollowing risk-cutoff thresholds for the [place] Americanpulation. Performed By: #### L 500.4100, L506.1001 ####[facility] [address] [place], [address] Cholesterol in HDL [Mass/Vol] 64 mg/dL Normal [facility] Comment on above: Order Comment: 307.2 Result Comment: Yasmin onal Cholesterol Education Program (NCEP) guidelines:<40 mg/dL: Low HDL-cholesterol (major risk factor for CHD)>= 60 mg/dL: High HDL-cholesterol (negative risk factor forCHD)HDL-cholesterol is affected by a number of factors, e.g.smoking, exercise, hormones, sex and age. Performed By: #### L 500.4100, L506.1001 ####[facility] [address] [place], [address] Cholesterol in LDL [Mass/Vol] 63 mg/dL Normal [facility] Comment on above: Order Comment: 307.2 Result Comment: Bord dvolwg=394-776 mg/dL Higher Oijs=517 mg/dL or greater Performed By: #### L 500.4100, L506.1001 ####[facility] [address] [place], [address] Cholesterol in VLDL [Mass/Vol] 13 mg/dL Normal 5-40 [facility] Comment on above: Order Comment: 307.2 Performed By: #### L 500.4100, L506.1001 ####[facility] [address] [facility] [place], [address] Triglyceride [Mass/Vol] 63 mg/dL Normal [facility] Comment on above: Order Comment: 307.2 Result Comment: The drugs N-Acetylcysteine and Metamizole may falselydepress this assay.Normal range: <150 mg/dLBorderline High: 150-199 mg/dLHigh: 200-499 mg/dLVery High: >500 mg/dL Performed By: #### L 500.4100, L506.1001 ####[facility] [address] [facility] [place], [place], [address] Screening total cholesterol/ high density lipoprotein (HDL) cholesterol ratioOrdered By: Carla Prather on 11-05-2024 Cholesterol.total/Choles terol in HDL [Mass ratio] 2.18 {ratio} [facility] Serum or plasma cholesterol in HDL measurement (mass/volume)Ordered By: Carla Prather on 11-05-2024 Cholesterol in HDL [Mass/Vol] 64 mg/dL >40 [facility] Comment on above: National Cholesterol Education Program (NCEP) guidelines:<40 mg/dL: Low HDL-cholesterol (major risk factor for CHD)>= 60 mg/dL: High HDL-cholesterol (negative risk factor for CHD)HDL-cholesterol is affected by a number of factors, e.g. smoking, exercise, hormones, sex and age. Serum or plasma cholesterol measurement (mass/volume)Ordered By: Carla Prather on 11-05-2024 Cholesterol [Mass/Vol] 140 mg/dL <201 [facility] Comment on above: Cholesterol level, D esirable <200 mg/dLBorderline high cholesterol 200-239 mg/dLHigh cholesterol >=240 mg/dLRecommendations of the NCEP Adult Treatment Panel for the following risk-cutoff thresholds for the [place] population. Triglycerides measurementOrd ered By: Carla Prather on 11-05-2024 Triglyceride [Mass/Vol] 63 mg/dL <199 [facility] Comment on above: The drugs N-Acetylcy steine and Metamizole may falsely depress this assay. Normal range: <150 mg/dLBorderline High: 150-199 mg/dLHigh: 200-499 mg/dLVery High: >500 mg/dL Vitamin D,25 Hydroxyon 11-05 Vitamin D 25-OH 51.2 ng/mL Normal 30-100 [facility] Comment on above: Order Comment: 307.2 Result Comment: Teri min D StatusDeficiency: <20 ng/mL (50nmol/L)Insufficiency: 20-30 ng/mL (50-75 nmol/L)Sufficiency: 30-100 ng/mL (75-250 nmol/L)Toxicity: >100 ng/mL (>250 nmol/L) Performed By: #### L 500.4100, L506.1001 ####[facility] [address] [place], [address] Lipid Profileon 11-04-2024 CHOL Normal <=200 [facility] Comment on above: Order Comment: 307-2 Result Comment: MICHOACANO ENT REFUSED-NOTFIED NURSE Performed By: #### L 500.4100 ####[facility] [address] [place], [address] CHOL:HDL Normal [facility] Comment on above: Order Comment: 307-2 Result Comment: MICHOACANO ENT REFUSED-NOTFIED NURSE Performed By: #### L 500.4100 ####[facility] [address] [place], [address] CLDL Normal [facility] Comment on above: Order Comment: 307-2 Result Comment: MICHOACANO ENT REFUSED-NOTFIED NURSE Performed By: #### L 500.4100 ####[facility] [address] [place], [address] HDL Normal [facility] Comment on above: Order Comment: 307-2 Result Comment: MICHOACANO ENT REFUSED-NOTFIED NURSE Performed By: #### L 500.4100 ####[facility] [address] [place], [address] TRIG Normal [facility] Comment on above: Order Comment: 307-2 Result Comment: MICHOACANO ENT REFUSED-NOTFIED NURSE Performed By: #### L 500.4100 ####[facility] [address] [place], [address] VLDL Normal 5-40 [facility] Comment on above: Order Comment: 307-2 Result Comment: MICHOACANO ENT REFUSED-NOTFIED NURSE Performed By: #### L 500.4100 ####[facility] [address] [place], [address] Carbamazepine (Tegretol)on 0 10-16-2024 CARBAMAZEPINE 7.1 ug/mL Normal 4.0-12.0 [facility] Comment on above: Order Comment: 300 Performed By: #### L 501.7900 ####[facility] [address] [place], [address] Serum or plasma carbamazepin e level (mass/volume)Ordered By: Carla Prather on 10-16-2024 carBAMazepine [Mass/Vol] 7.1 ug/mL 4.0-12.0 [facility] Urine Cultureon 09-08-2024 URC Normal [facility] Comment on above: Performed By: #### M 100.2200, L400.0001 ####[facility] [address] [place], [address] Anion gap in Serum or Plasma Ordered By: Celia Toribio on 09-02-2024 Anion gap [Moles/Vol] 11 mmol/L 5-15 [facility] BUN/creatinine ratioOrdered By: Celia Toribio on 09-02-2024 Urea nitrogen/Creatinine [Mass ratio] 27.0 mg/mg High 04-07 [facility] Basic Metabolic Profile (BMP )on 09-02-2024 BUN/CRE 27.0 RATIO High 04-07 [facility] Comment on above: Performed By: #### L 100.0100, L500.2500 ####[facility] [address] [place], [address] Calcium [Mass/Vol] 9.2 mg/dL Normal 7.6-11.0 [facility] Comment on above: Performed By: #### L 100.0100, L500.2500 ####[facility] [address] [place], [address] Chloride [Moles/Vol] 106 mmol/L Normal 98-108 [facility] Comment on above: Performed By: #### L 100.0100, L500.2500 ####[facility] [address] [place], [address] CO2 [Moles/Vol] 20.8 mmol/L Low 21.0-32.0 [facility] Comment on above: Performed By: #### L 100.0100, L500.2500 ####[facility] [address] [place], [address] Creatinine [Mass/Vol] 1.22 mg/dL High 0.70-1.20 [facility] Comment on above: Performed By: #### L 100.0100, L500.2500 ####[facility] [address] [place], [address] ECRCL 50.54 ml/min Normal 50-250 [facility] Comment on above: Performed By: #### L 100.0100, L500.2500 ####[facility] [address] [place], [address] GAP 11 Normal 5-15 [facility] Comment on above: Performed By: #### L 100.0100, L500.2500 ####[facility] [address] [place], [address] GFR/1.73 sq M.predicted among non-blacks MDRD (S/P/Bld) [Vol rate/Area] 62 mL/min/{1.73_m2} Normal >60 [facility] Comment on above: Result Comment: mL/m in/1.73m2 CKD-EPI Creatinine Equation (2020) Performed By: #### L 100.0100, L500.2500 ####[facility] [address] [place], [address] Glucose [Mass/Vol] 99 mg/dL Normal 70-99 [facility] Comment on above: Performed By: #### L 100.0100, L500.2500 ####[facility] [address] [place], [address] Potassium [Moles/Vol] 4.0 mmol/L Normal 3.3-5.1 [facility] Comment on above: Performed By: #### L 100.0100, L500.2500 ####[facility] [address] [place], [address] Sodium [Moles/Vol] 138 mmol/L Normal 133-145 [facility] Comment on above: Performed By: #### L 100.0100, L500.2500 ####[facility] [address] [place], [address] Urea nitrogen [Mass/Vol] 33 mg/dL High 4-19 [facility] Comment on above: Performed By: #### L 100.0100, L500.2500 ####[facility] [address] [place], [address] CBC W/Diff, Automatedon - Absolute Neut Normal 2.0-7.7 [facility] Comment on above: Result Comment: Bethanie luna via OM: Ordered Performed By: #### L 100.0100, L500.2500 ####[facility] [address] [place], [address] HCT Normal 40-54 [facility] Comment on above: Result Comment: Bethanie luna via OM: Ordered Performed By: #### L 100.0100, L500.2500 ####[facility] [address] [place], [address] HGB Normal 13.0-16.5 [facility] Comment on above: Result Comment: Canc elled via OM: MD Ordered Performed By: #### L 100.0100, L500.2500 ####[facility] [address] [place], [address] MCH Normal 27.0-32.0 [facility] Comment on above: Result Comment: Canc elled via OM: MD Ordered Performed By: #### L 100.0100, L500.2500 ####[facility] [address] [place], [address] MCHC Normal 32-36 [facility] Comment on above: Result Comment: Canc elled via OM: MD Ordered Performed By: #### L 100.0100, L500.2500 ####[facility] [address] [place], [address] MCV Normal 80-94 [facility] Comment on above: Result Comment: Canc elled via OM: MD Ordered Performed By: #### L 100.0100, L500.2500 ####[facility] [address] [place], [address] NEUT% Normal 47-70 [facility] Comment on above: Result Comment: Canc elled via OM: MD Ordered Performed By: #### L 100.0100, L500.2500 ####[facility] [address] [place], [address] PLT Normal 150-450 [facility] Comment on above: Result Comment: Canc elled via OM: MD Ordered Performed By: #### L 100.0100, L500.2500 ####[facility] [address] [place], [address] RBC Normal 4.6-6.2 [facility] Comment on above: Result Comment: Canc elled via OM: MD Ordered Performed By: #### L 100.0100, L500.2500 ####[facility] [address] [place], [address] RDW CV Normal 11.6-14.6 [facility] Comment on above: Result Comment: Canc elled via OM: MD Ordered Performed By: #### L 100.0100, L500.2500 ####[facility] [address] [place], [address] RDW SD Normal 35.1-43.9 [facility] Comment on above: Result Comment: Canc elled via OM: MD Ordered Performed By: #### L 100.0100, L500.2500 ####[facility] [address] [place], [address] WBC Normal 4.4-11.0 [facility] Comment on above: Result Comment: Canc elled via OM: MD Ordered Performed By: #### L 100.0100, L500.2500 ####[facility] [address] [place], [address] Carbon dioxide, total [Moles /volume] in Central venous bloodOrdered By: Celia Toribio on 09-02-2024 CO2 [Moles/Vol] 20.8 mmol/L Low 21.0-32.0 [facility] Chloride assayOrdered By: Yariel Toribio on 09-02-2024 Chloride [Moles/Vol] 106 mmol/L 98-108 [facility] Estimation of creatinine zeke aranceOrdered By: Celia Toribio on 09-02-2024 Estimated Creatinine Clearance Calc 50.54 ml/min 50-250 [facility] GFR/1.73 sq M.predicted gisella g non-blacks MDRD (S/P/Bld) [Vol rate/Area]Ordered By: Celia Toribio on 09-02-2024 Estimated GFR (MDRD) Non-Af Amer 62 >60 [facility] Comment on above: mL/min/1.73m2 CKD-EP I Creatinine Equation (2020) Glomerular filtration rate ( GFR) estimation/1.73 sq m using serum, plasma, or whole bOrdered By: Celia Toribio on 09-02-2024 GFR/1.73 sq M.predicted among non-blacks MDRD (S/P/Bld) [Vol rate/Area] 62 mL/min/{1.73_m2} >60 [facility] Comment on above: mL/min/1.73m2 CKD-EP I Creatinine Equation (2020) Potassium (Unsp spec) [Mass/ Vol]Ordered By: Celia Toribio on 09-02-2024 Potassium [Moles/Vol] 4.0 mmol/L 3.3-5.1 [facility] Potassium measurement (mass/ volume)Ordered By: Celia Toribio on 09-02-2024 Potassium (Unsp spec) [Mass/Vol] 4.0 mmol/L 3.3-5.1 [facility] Serum creatinine measurement (mass/volume)Ordered By: Celia Toribio on 09-02-2024 Creatinine [Mass/Vol] 1.22 mg/dL High 0.70-1.20 [facility] Serum glucose measurement (m ass/volume)Ordered By: Celia Toribio on 09-02-2024 Glucose [Mass/Vol] 99 mg/dL 70-99 [facility] Serum or plasma calcium luis urement (mass/volume)Ordered By: Celia Toribio on 09-02-2024 Calcium [Mass/Vol] 9.2 mg/dL 7.6-11.0 [facility] Serum or plasma urea nitroge n measurement (mass/volume)Ordered By: Celia Toribio on 09-02-2024 Urea nitrogen [Mass/Vol] 33 mg/dL High 4-19 [facility] Sodium levelOrdered By: Rigoberto Toribio on 09-02-2024 Sodium [Moles/Vol] 138 mmol/L 133-145 [facility] Absolute lymphocyte countOrd ered By: Celia Toribio on 09-01-2024 Lymphocytes Auto (Unsp spec) [#/Vol] 1.45 10*3/uL 0.83-4.51 [facility] Absolute neutrophil countOrd ered By: Celia Toribio on 09-01-2024 Neutrophils (Bld) [#/Vol] 4.9 10*3/uL 2.0-7.7 [facility] Automated lymphocyte count a s percentage of total leukocytesOrdered By: Celia Toribio on 09-01-2024 Lymphocytes/100 WBC Auto (Unsp spec) 20.9 % 19-41 [facility] Basic Metabolic Profile (BMP )on 09-01-2024 BUN/CRE 26.8 RATIO High 10-20 [facility] Comment on above: Order Comment: PT RE FUSED REPORTED TO ОЛЕГ STORY. RN JEZ SAID SHE WOULDTRY TO DRAW. Performed By: #### L 500.2500 ####[facility] [address] [place], [address] Calcium [Mass/Vol] 9.6 mg/dL Normal 7.6-11.0 [facility] Comment on above: Order Comment: PT RE FUSED REPORTED TO ОЛЕГ STORY. ОЛЕГ STORY SAID SHE WOULDTRY TO DRAW. Performed By: #### L 500.2500 ####[facility] [address] [place], [address] Chloride [Moles/Vol] 102 mmol/L Normal 98-108 [facility] Comment on above: Order Comment: PT RE FUSED REPORTED TO ОЛЕГ STORY. ОЛЕГ STORY SAID SHE WOULDTRY TO DRAW. Performed By: #### L 500.2500 ####[facility] [address] [place], [address] CO2 [Moles/Vol] 21.9 mmol/L Normal 21.0-32.0 [facility] Comment on above: Order Comment: PT RE FUSED REPORTED TO ОЛЕГ STORY. ОЛЕГ STORY SAID SHE WOULDTRY TO DRAW. Performed By: #### L 500.2500 ####[facility] [address] [place], [address] Creatinine [Mass/Vol] 1.44 mg/dL High 0.70-1.20 [facility] Comment on above: Order Comment: PT RE FUSED REPORTED TO ОЛЕГ STORY. ОЛЕГ STORY SAID SHE WOULDTRY TO DRAW. Performed By: #### L 500.2500 ####[facility] [address] [place], [address] ECRCL 42.38 ml/min Low 50-250 [facility] Comment on above: Order Comment: PT RE FUSED REPORTED TO ОЛЕГ STORY. RN JEZ SAID SHE WOULDTRY TO DRAW. Performed By: #### L 500.2500 ####[facility] [address] [place], [address] GAP 13 Normal 5-15 [facility] Comment on above: Order Comment: PT RE FUSED REPORTED TO ОЛЕГ STORY. RN JEZ SAID SHE WOULDTRY TO DRAW. Performed By: #### L 500.2500 ####[facility] [address] [place], [address] GFR/1.73 sq M.predicted among non-blacks MDRD (S/P/Bld) [Vol rate/Area] 51 mL/min/{1.73_m2} Low >60 [facility] Comment on above: Order Comment: PT RE FUSED REPORTED TO ОЛЕГ STORY. RN JEZ SAID SHE WOULDTRY TO DRAW. Result Comment: mL/m in/1.73m2 CKD-EPI Creatinine Equation (2020) Performed By: #### L 500.2500 ####[facility] [address] [place], [address] Glucose [Mass/Vol] 118 mg/dL High 70-99 [facility] Comment on above: Order Comment: PT RE FUSED REPORTED TO ОЛЕГ STORY. ОЛЕГ STORY SAID SHE WOULDTRY TO DRAW. Performed By: #### L 500.2500 ####[facility] [address] [place], [address] Potassium [Moles/Vol] 4.1 mmol/L Normal 3.3-5.1 [facility] Comment on above: Order Comment: PT RE FUSED REPORTED TO ОЛЕГ STORY. RN JEZ SAID SHE WOULDTRY TO DRAW. Performed By: #### L 500.2500 ####[facility] [facility] [address] [place], [address] Sodium [Moles/Vol] 137 mmol/L Normal 133-145 [facility] Comment on above: Order Comment: PT RE FUSED REPORTED TO ОЛЕГ STORY. ОЛЕГ STORY SAID SHE WOULDTRY TO DRAW. Performed By: #### L 500.2500 ####[facility] [address] [place], [address] Urea nitrogen [Mass/Vol] 39 mg/dL High 4-19 [facility] Comment on above: Order Comment: PT RE FUSED REPORTED TO ОЛЕГ STORY. RN JEZ SAID SHE WOULDTRY TO DRAW. Performed By: #### L 500.2500 ####[facility] [address] [place], [address] BUN/CRE 30.2 RATIO High 10-20 [facility] Comment on above: Performed By: #### L 100.0100, L500.2500 ####[facility] [address] [place], [address] Calcium [Mass/Vol] 9.7 mg/dL Normal 7.6-11.0 [facility] Comment on above: Performed By: #### L 100.0100, L500.2500 ####[facility] [address] [place], [address] Chloride [Moles/Vol] 103 mmol/L Normal 98-108 [facility] Comment on above: Performed By: #### L 100.0100, L500.2500 ####[facility] [address] [place], [address] CO2 [Moles/Vol] 19.4 mmol/L Low 21.0-32.0 [facility] Comment on above: Performed By: #### L 100.0100, L500.2500 ####[facility] [address] [place], [address] Creatinine [Mass/Vol] 1.33 mg/dL High 0.70-1.20 [facility] Comment on above: Performed By: #### L 100.0100, L500.2500 ####[facility] [address] [place], [address] ECRCL 45.89 ml/min Low 50-250 [facility] Comment on above: Performed By: #### L 100.0100, L500.2500 ####[facility] [address] [place], [address] GAP 16 High 5-15 [facility] Comment on above: Performed By: #### L 100.0100, L500.2500 ####[facility] [address] [place], [address] GFR/1.73 sq M.predicted among non-blacks MDRD (S/P/Bld) [Vol rate/Area] 56 mL/min/{1.73_m2} Low >60 [facility] Comment on above: Result Comment: mL/m in/1.73m2 CKD-EPI Creatinine Equation (2020) Performed By: #### L 100.0100, L500.2500 ####[facility] [address] [place], [address] Glucose [Mass/Vol] 83 mg/dL Normal 70-99 [facility] Comment on above: Performed By: #### L 100.0100, L500.2500 ####[facility] [address] [place], [address] Potassium [Moles/Vol] 3.8 mmol/L Normal 3.3-5.1 [facility] Comment on above: Performed By: #### L 100.0100, L500.2500 ####[facility] [address] [place], [address] Sodium [Moles/Vol] 139 mmol/L Normal 133-145 [facility] Comment on above: Performed By: #### L 100.0100, L500.2500 ####[facility] [address] [place], [address] Urea nitrogen [Mass/Vol] 40 mg/dL High 4-19 [facility] Comment on above: Performed By: #### L 100.0100, L500.2500 ####[facility] [address] [place], [address] Basophil percentageOrdered B y: Celiamonique Toribio on 09-01-2024 Basophils/100 WBC (Bld) 1.0 % 0-1 [facility] CBC W/Diff, Automatedon 08-17 Absolute Lymph 1.45 X10 3/uL Normal 0.83-4.51 [facility] Comment on above: Performed By: #### L 100.0100 ####[facility] [address] [place], [address] Absolute Neut 4.9 X10 3/uL Normal 2.0-7.7 [facility] Comment on above: Performed By: #### L 100.0100 ####[facility] [address] [place], [address] Basophils/100 WBC (Bld) 1.0 % Normal 0-1 [facility] Comment on above: Performed By: #### L 100.0100 ####[facility] [address] [place], [address] Eosinophils/100 WBC (Bld) 0.4 % Normal 0-5 [facility] Comment on above: Performed By: #### L 100.0100 ####[facility] [address] [place], [address] Erythrocyte distribution width (RBC) [Ratio] 13.3 % Normal 11.6-14.6 [facility] Comment on above: Performed By: #### L 100.0100 ####[facility] [address] [place], [address] Hematocrit (Bld) [Volume fraction] 43.2 % Normal 40-54 [facility] Comment on above: Performed By: #### L 100.0100 ####[facility] [address] [place], [address] Hemoglobin (Bld) [Mass/Vol] 14.1 g/dL Normal 13.0-16.5 [facility] Comment on above: Performed By: #### L 100.0100 ####[facility] [address] [place], [address] IG% 0.600 Normal 0.0-0.9 [facility] Comment on above: Result Comment: IG% - Immature Granulocytes (promyelocytes, myelocytes andmetamyelocytes) > 1% indicates that a LEFT SHIFT is Present. Performed By: #### L 100.0100 ####[facility] [address] [place], [address] Lymphocytes/100 WBC (Bld) 20.9 % Normal 19-41 [facility] Comment on above: Performed By: #### L 100.0100 ####[facility] [address] [place], [address] MCH (RBC) [Entitic mass] 31.4 pg Normal 27.0-32.0 [facility] Comment on above: Performed By: #### L 100.0100 ####[facility] [address] [place], [address] MCHC (RBC) [Mass/Vol] 32.6 g/dL Normal 32-36 [facility] Comment on above: Performed By: #### L 100.0100 ####[facility] [address] [place], [address] MCV (RBC) [Entitic vol] 96.2 fL High 80-94 [facility] Comment on above: Performed By: #### L 100.0100 ####[facility] [address] [place], [address] Monocytes/100 WBC (Bld) 6.2 % Normal 0-10 [facility] Comment on above: Performed By: #### L 100.0100 ####[facility] [address] [place], [address] Neutrophils/100 WBC (Bld) 70.9 % High 47-70 [facility] Comment on above: Performed By: #### L 100.0100 ####[facility] [address] [place], [address] Nucleated RBC (Bld) [#/Vol] 0 10*3/uL Normal 0-5 [facility] Comment on above: Performed By: #### L 100.0100 ####[facility] [address] [place], [address] Platelet mean volume (Bld) [Entitic vol] 9.5 fL Normal 6.2-12.0 [facility] Comment on above: Performed By: #### L 100.0100 ####[facility] [address] [place], [address] Platelets (Bld) [#/Vol] 367 10*3/uL Normal 150-450 [facility] Comment on above: Performed By: #### L 100.0100 ####[facility] [address] [place], [address] RBC (Bld) [#/Vol] 4.49 10*6/uL Low 4.6-6.2 [facility] Comment on above: Performed By: #### L 100.0100 ####[facility] [address] [place], [address] RDW SD 47.4 fl High 35.1-43.9 [facility] Comment on above: Performed By: #### L 100.0100 ####[facility] [address] [place], [address] WBC (Bld) [#/Vol] 6.9 10*3/uL Normal 4.4-11.0 [facility] Comment on above: Performed By: #### L 100.0100 ####[facility] [address] [place], [address] Absolute Neut Normal 2.0-7.7 [facility] Comment on above: Result Comment: Canc elled via OM: MD Ordered Performed By: #### L 100.0100, L500.2500 ####[facility] [address] [place], [address] HCT Normal 40-54 [facility] Comment on above: Result Comment: Canc elled via OM: MD Ordered Performed By: #### L 100.0100, L500.2500 ####[facility] [address] [place], [address] HGB Normal 13.0-16.5 [facility] Comment on above: Result Comment: Canc elled via OM: MD Ordered Performed By: #### L 100.0100, L500.2500 ####[facility] [address] [place], [address] MCH Normal 27.0-32.0 [facility] Comment on above: Result Comment: Canc elled via OM: MD Ordered Performed By: #### L 100.0100, L500.2500 ####[facility] [address] [place], [address] MCHC Normal 32-36 [facility] Comment on above: Result Comment: Canc elled via OM: MD Ordered Performed By: #### L 100.0100, L500.2500 ####[facility] [address] [place], [address] MCV Normal 80-94 [facility] Comment on above: Result Comment: Canc elled via OM: MD Ordered Performed By: #### L 100.0100, L500.2500 ####[facility] [address] [place], [address] NEUT% Normal 47-70 [facility] Comment on above: Result Comment: Canc elled via OM: MD Ordered Performed By: #### L 100.0100, L500.2500 ####[facility] [address] [place], [address] PLT Normal 150-450 [facility] Comment on above: Result Comment: Canc elled via OM: MD Ordered Performed By: #### L 100.0100, L500.2500 ####[facility] [address] [place], [address] RBC Normal 4.6-6.2 [facility] Comment on above: Result Comment: Canc elled via OM: MD Ordered Performed By: #### L 100.0100, L500.2500 ####[facility] [address] [place], [address] RDW CV Normal 11.6-14.6 [facility] Comment on above: Result Comment: Canc elled via OM: MD Ordered Performed By: #### L 100.0100, L500.2500 ####[facility] [address] [place], [address] RDW SD Normal 35.1-43.9 [facility] Comment on above: Result Comment: Canc elled via OM: MD Ordered Performed By: #### L 100.0100, L500.2500 ####[facility] [address] [place], [address] WBC Normal 4.4-11.0 [facility] Comment on above: Result Comment: Canc elled via OM: MD Ordered Performed By: #### L 100.0100, L500.2500 ####[facility] [address] [place], [address] Eosinophil percentageOrdered By: Celia Toribio on 09-01-2024 Eosinophils/100 WBC (Bld) 0.4 % 0-5 [facility] Erythrocyte distribution wid th ratioOrdered By: Celia Toribio on 09-01-2024 Erythrocyte distribution width (RBC) [Ratio] 13.3 % 11.6-14.6 [facility] Erythrocyte distribution wid th standard deviationOrdered By: Celia Toribio on 09-01-2024 Erythrocyte distribution width (RBC) [Entitic vol] 47.4 fL High 35.1-43.9 [facility] Erythrocyte distribution width (RBC) [Ratio] 47.4 fl High 35.1-43.9 [facility] Hematocrit Auto (Bld) [Volum e fraction]Ordered By: Celia Toribio on 09-01-2024 Hematocrit (Bld) [Volume fraction] 43.2 % 40-54 [facility] Hemoglobin measurementOrdere d By: Celia Toribio on 09-01-2024 Hemoglobin (Bld) [Mass/Vol] 14.1 g/dL 13.0-16.5 [facility] Immature granulocytes/100 WB C Auto (Bld)Ordered By: Celia Toribio on 09-01-2024 Immature granulocytes/100 WBC (Bld) 0.600 % 0.0-0.9 [facility] Comment on above: IG% - Immature Granu locytes (promyelocytes, myelocytes and metamyelocytes) > 1% indicates that a LEFT SHIFT is Present. Lymphocytes Auto (Unsp spec) [#/Vol]Ordered By: Celia Toribio on 09-01-2024 Lymphocytes (Bld) [#/Vol] 1.45 10*3/uL 0.83-4.51 [facility] Lymphocytes/100 WBC Auto (Un sp spec)Ordered By: Celia Toribio on 09-01-2024 Lymphocytes/100 WBC (Bld) 20.9 % 19-41 [facility] MCV (mean corpuscular volume ) determinationOrdered By: Celia Toribio on 09-01-2024 MCV (RBC) [Entitic vol] 96.2 fL High 80-94 [facility] Mean corpuscular hemoglobin (MCH) determinationOrdered By: Celia Toribio on 09-01-2024 MCH (RBC) [Entitic mass] 31.4 pg 27.0-32.0 [facility] Mean corpuscular hemoglobin concentration (MCHC) determinationOrdered By: Celia Toribio on 09-01-2024 MCHC (RBC) [Mass/Vol] 32.6 g/dL 32-36 [facility] Mean platelet volume determi nationOrdered By: Celia Toribio on 09-01-2024 Platelet mean volume (Bld) [Entitic vol] 9.5 fL 6.2-12.0 [facility] Monocyte percentageOrdered B y: Celia Toribio on 09-01-2024 Monocytes/100 WBC (Bld) 6.2 % 0-10 [facility] Neutrophil percentageOrdered By: Celia Toribio on 09-01-2024 Neutrophils/100 WBC (Bld) 70.9 % High 47-70 [facility] Nucleated red blood cell per centageOrdered By: Celia Toribio on 09-01-2024 Nucleated RBC/100 WBC (Bld) [Ratio] 0 % 0-5 [facility] Platelet countOrdered By: Yariel Toribio on 09-01-2024 Platelets (Bld) [#/Vol] 367 10*3/uL 150-450 [facility] RBC Auto (Bld) [#/Vol]Ordere d By: Celia Toribio on 09-01-2024 RBC (Bld) [#/Vol] 4.49 10*6/uL Low 4.6-6.2 [facility] White blood cell (WBC) count Ordered By: Celia Toribio on 09-01-2024 WBC (Bld) [#/Vol] 6.9 10*3/uL 4.4-11.0 [facility] Basic Metabolic Profile (BMP )on 08-31-2024 BUN/CRE 25.7 RATIO High 10-20 [facility] Comment on above: Performed By: #### L 500.2500, L100.0100 ####[facility] [address] [place], [address] Calcium [Mass/Vol] 10.0 mg/dL Normal 7.6-11.0 [facility] Comment on above: Performed By: #### L 500.2500, L100.0100 ####[facility] [address] [place], [address] Chloride [Moles/Vol] 102 mmol/L Normal 98-108 [facility] Comment on above: Performed By: #### L 500.2500, L100.0100 ####[facility] [address] [place], [address] CO2 [Moles/Vol] 21.5 mmol/L Normal 21.0-32.0 [facility] Comment on above: Performed By: #### L 500.2500, L100.0100 ####[facility] [address] [place], [address] Creatinine [Mass/Vol] 1.16 mg/dL Normal 0.70-1.20 [facility] Comment on above: Performed By: #### L 500.2500, L100.0100 ####[facility] [address] [place], [address] ECRCL 52.61 ml/min Normal 50-250 [facility] Comment on above: Performed By: #### L 500.2500, L100.0100 ####[facility] [address] [place], [address] GAP 15 Normal 5-15 [facility] Comment on above: Performed By: #### L 500.2500, L100.0100 ####[facility] [address] [place], [address] GFR/1.73 sq M.predicted among non-blacks MDRD (S/P/Bld) [Vol rate/Area] 66 mL/min/{1.73_m2} Normal >60 [facility] Comment on above: Result Comment: mL/m in/1.73m2 CKD-EPI Creatinine Equation (2020) Performed By: #### L 500.2500, L100.0100 ####[facility] [address] [place], [address] Glucose [Mass/Vol] 93 mg/dL Normal 70-99 [facility] Comment on above: Performed By: #### L 500.2500, L100.0100 ####[facility] [address] [place], [address] Potassium [Moles/Vol] 3.8 mmol/L Normal 3.3-5.1 [facility] Comment on above: Performed By: #### L 500.2500, L100.0100 ####[facility] [address] [place], [address] Sodium [Moles/Vol] 138 mmol/L Normal 133-145 [facility] Comment on above: Performed By: #### L 500.2500, L100.0100 ####[facility] [address] [place], [address] Urea nitrogen [Mass/Vol] 30 mg/dL High 4-19 [facility] Comment on above: Performed By: #### L 500.2500, L100.0100 ####[facility] [address] [place], [address] CBC W/Diff, Automatedon 03-1 Absolute Neut Normal 2.0-7.7 [facility] Comment on above: Result Comment: Bethanie luna via OM: Ordered Performed By: #### L 500.2500, L100.0100 ####[facility] [address] [place], [address] HCT Normal 40-54 [facility] Comment on above: Result Comment: Bethanie luna via OM: Ordered Performed By: #### L 500.2500, L100.0100 ####[facility] [address] [place], [address] HGB Normal 13.0-16.5 [facility] Comment on above: Result Comment: Canc elled via OM: MD Ordered Performed By: #### L 500.2500, L100.0100 ####[facility] [address] [place], [address] MCH Normal 27.0-32.0 [facility] Comment on above: Result Comment: Canc elled via OM: MD Ordered Performed By: #### L 500.2500, L100.0100 ####[facility] [address] [place], [address] MCHC Normal 32-36 [facility] Comment on above: Result Comment: Canc elled via OM: MD Ordered Performed By: #### L 500.2500, L100.0100 ####[facility] [address] [place], [address] MCV Normal 80-94 [facility] Comment on above: Result Comment: Canc elled via OM: MD Ordered Performed By: #### L 500.2500, L100.0100 ####[facility] [address] [place], [address] NEUT% Normal 47-70 [facility] Comment on above: Result Comment: Canc elled via OM: MD Ordered Performed By: #### L 500.2500, L100.0100 ####[facility] [address] [place], [address] PLT Normal 150-450 [facility] Comment on above: Result Comment: Canc elled via OM: MD Ordered Performed By: #### L 500.2500, L100.0100 ####[facility] [address] [place], [address] RBC Normal 4.6-6.2 [facility] Comment on above: Result Comment: Canc elled via OM: MD Ordered Performed By: #### L 500.2500, L100.0100 ####[facility] [address] [place], [address] RDW CV Normal 11.6-14.6 [facility] Comment on above: Result Comment: Canc elled via OM: MD Ordered Performed By: #### L 500.2500, L100.0100 ####[facility] [address] [place], [address] RDW SD Normal 35.1-43.9 [facility] Comment on above: Result Comment: Canc elled via OM: MD Ordered Performed By: #### L 500.2500, L100.0100 ####[facility] [address] [place], [address] WBC Normal 4.4-11.0 [facility] Comment on above: Result Comment: Canc elled via OM: MD Ordered Performed By: #### L 500.2500, L100.0100 ####[facility] [address] [place], [address] Basic Metabolic Profile (BMP )on 08-30-2024 BUN/CRE 21.4 RATIO High 10-20 [facility] Comment on above: Performed By: #### L 100.0100, L500.2500 ####[facility] [address] [place], [address] Calcium [Mass/Vol] 10.1 mg/dL Normal 7.6-11.0 [facility] Comment on above: Performed By: #### L 100.0100, L500.2500 ####[facility] [address] [place], [address] Chloride [Moles/Vol] 102 mmol/L Normal 98-108 [facility] Comment on above: Performed By: #### L 100.0100, L500.2500 ####[facility] [address] [place], [address] CO2 [Moles/Vol] 22.7 mmol/L Normal 21.0-32.0 [facility] Comment on above: Performed By: #### L 100.0100, L500.2500 ####[facility] [address] [place], [address] Creatinine [Mass/Vol] 1.21 mg/dL High 0.70-1.20 [facility] Comment on above: Performed By: #### L 100.0100, L500.2500 ####[facility] [address] [place], [address] ECRCL 51.03 ml/min Normal 50-250 [facility] Comment on above: Performed By: #### L 100.0100, L500.2500 ####[facility] [address] [place], [address] GAP 13 Normal 5-15 [facility] Comment on above: Performed By: #### L 100.0100, L500.2500 ####[facility] [address] [place], [address] GFR/1.73 sq M.predicted among non-blacks MDRD (S/P/Bld) [Vol rate/Area] 62 mL/min/{1.73_m2} Normal >60 [facility] Comment on above: Result Comment: mL/m in/1.73m2 CKD-EPI Creatinine Equation (2020) Performed By: #### L 100.0100, L500.2500 ####[facility] [address] [place], [address] Glucose [Mass/Vol] 94 mg/dL Normal 70-99 [facility] Comment on above: Performed By: #### L 100.0100, L500.2500 ####[facility] [address] [place], [address] Potassium [Moles/Vol] 4.2 mmol/L Normal 3.3-5.1 [facility] Comment on above: Performed By: #### L 100.0100, L500.2500 ####[facility] [address] [place], [address] Sodium [Moles/Vol] 138 mmol/L Normal 133-145 [facility] Comment on above: Performed By: #### L 100.0100, L500.2500 ####[facility] [address] [place], [address] Urea nitrogen [Mass/Vol] 26 mg/dL High 4-19 [facility] Comment on above: Performed By: #### L 100.0100, L500.2500 ####[facility] [address] [place], [address] CBC W/Diff, Automatedon 08-17 Absolute Lymph 1.00 X10 3/uL Normal 0.83-4.51 [facility] Comment on above: Performed By: #### L 100.0100, L500.2500 ####[facility] [address] [place], [address] Absolute Neut 3.7 X10 3/uL Normal 2.0-7.7 [facility] Comment on above: Performed By: #### L 100.0100, L500.2500 ####[facility] [address] [place], [address] Basophils/100 WBC (Bld) 1.6 % High 0-1 [facility] Comment on above: Performed By: #### L 100.0100, L500.2500 ####[facility] [address] [place], [address] Eosinophils/100 WBC (Bld) 7.8 % High 0-5 [facility] Comment on above: Performed By: #### L 100.0100, L500.2500 ####[facility] [address] [place], [address] Erythrocyte distribution width (RBC) [Ratio] 13.3 % Normal 11.6-14.6 [facility] Comment on above: Performed By: #### L 100.0100, L500.2500 ####[facility] [address] [place], [address] Hematocrit (Bld) [Volume fraction] 41.8 % Normal 40-54 [facility] Comment on above: Performed By: #### L 100.0100, L500.2500 ####[facility] [address] [place], [address] Hemoglobin (Bld) [Mass/Vol] 13.8 g/dL Normal 13.0-16.5 [facility] Comment on above: Performed By: #### L 100.0100, L500.2500 ####[facility] [address] [place], [address] IG% 0.400 Normal 0.0-0.9 [facility] Comment on above: Result Comment: IG% - Immature Granulocytes (promyelocytes, myelocytes andmetamyelocytes) > 1% indicates that a LEFT SHIFT is Present. Performed By: #### L 100.0100, L500.2500 ####[facility] [address] [place], [address] Lymphocytes/100 WBC (Bld) 17.8 % Low 19-41 [facility] Comment on above: Performed By: #### L 100.0100, L500.2500 ####[facility] [address] [place], [address] MCH (RBC) [Entitic mass] 31.9 pg Normal 27.0-32.0 [facility] Comment on above: Performed By: #### L 100.0100, L500.2500 ####[facility] [address] [place], [address] MCHC (RBC) [Mass/Vol] 33.0 g/dL Normal 32-36 [facility] Comment on above: Performed By: #### L 100.0100, L500.2500 ####[facility] [address] [place], [address] MCV (RBC) [Entitic vol] 96.5 fL High 80-94 [facility] Comment on above: Performed By: #### L 100.0100, L500.2500 ####[facility] [address] [place], [address] Monocytes/100 WBC (Bld) 7.6 % Normal 0-10 [facility] Comment on above: Performed By: #### L 100.0100, L500.2500 ####[facility] [address] [place], [address] Neutrophils/100 WBC (Bld) 64.8 % Normal 47-70 [facility] Comment on above: Performed By: #### L 100.0100, L500.2500 ####[facility] [address] [place], [address] Nucleated RBC (Bld) [#/Vol] 0 10*3/uL Normal 0-5 [facility] Comment on above: Performed By: #### L 100.0100, L500.2500 ####[facility] [address] [place], [address] Platelet mean volume (Bld) [Entitic vol] 9.7 fL Normal 6.2-12.0 [facility] Comment on above: Performed By: #### L 100.0100, L500.2500 ####[facility] [address] [place], [address] Platelets (Bld) [#/Vol] 309 10*3/uL Normal 150-450 [facility] Comment on above: Performed By: #### L 100.0100, L500.2500 ####[facility] [address] [place], [address] RBC (Bld) [#/Vol] 4.33 10*6/uL Low 4.6-6.2 [facility] Comment on above: Performed By: #### L 100.0100, L500.2500 ####[facility] [address] [place], [address] RDW SD 47.7 fl High 35.1-43.9 [facility] Comment on above: Performed By: #### L 100.0100, L500.2500 ####[facility] [address] [place], [address] WBC (Bld) [#/Vol] 5.6 10*3/uL Normal 4.4-11.0 [facility] Comment on above: Performed By: #### L 100.0100, L500.2500 ####[facility] [address] [place], [address] Consultation - Infectious Dx on 08-30-2024 Consultation - Infectious Dx Normal [facility] Basic Metabolic Profile (BMP )on 08-29-2024 BUN/CRE 24.6 RATIO High 10-20 [facility] Comment on above: Performed By: #### L 100.0100, L500.2500 ####[facility] [address] [place], [address] Calcium [Mass/Vol] 10.0 mg/dL Normal 7.6-11.0 [facility] Comment on above: Performed By: #### L 100.0100, L500.2500 ####[facility] [address] [place], [address] Chloride [Moles/Vol] 104 mmol/L Normal 98-108 [facility] Comment on above: Performed By: #### L 100.0100, L500.2500 ####[facility] [address] [place], [address] CO2 [Moles/Vol] 22.8 mmol/L Normal 21.0-32.0 [facility] Comment on above: Performed By: #### L 100.0100, L500.2500 ####[facility] [address] [place], [address] Creatinine [Mass/Vol] 1.21 mg/dL High 0.70-1.20 [facility] Comment on above: Performed By: #### L 100.0100, L500.2500 ####[facility] [address] [place], [address] ECRCL 51.03 ml/min Normal 50-250 [facility] Comment on above: Performed By: #### L 100.0100, L500.2500 ####[facility] [address] [place], [address] GAP 14 Normal 5-15 [facility] Comment on above: Performed By: #### L 100.0100, L500.2500 ####[facility] [address] [place], [address] GFR/1.73 sq M.predicted among non-blacks MDRD (S/P/Bld) [Vol rate/Area] 62 mL/min/{1.73_m2} Normal >60 [facility] Comment on above: Result Comment: mL/m in/1.73m2 CKD-EPI Creatinine Equation (2020) Performed By: #### L 100.0100, L500.2500 ####[facility] [address] [place], [address] Glucose [Mass/Vol] 91 mg/dL Normal 70-99 [facility] Comment on above: Performed By: #### L 100.0100, L500.2500 ####[facility] [address] [place], [address] Potassium [Moles/Vol] 4.1 mmol/L Normal 3.3-5.1 [facility] Comment on above: Performed By: #### L 100.0100, L500.2500 ####[facility] [address] [place], [address] Sodium [Moles/Vol] 141 mmol/L Normal 133-145 [facility] Comment on above: Performed By: #### L 100.0100, L500.2500 ####[facility] [address] [place], [address] Urea nitrogen [Mass/Vol] 30 mg/dL High 4-19 [facility] Comment on above: Performed By: #### L 100.0100, L500.2500 ####[facility] [address] [place], [address] CBC W/Diff, Automatedon 03-06 21-2024 Absolute Lymph 1.17 X10 3/uL Normal 0.83-4.51 [facility] Comment on above: Performed By: #### L 100.0100, L500.2500 ####[facility] [address] [place], [address] Absolute Neut 3.1 X10 3/uL Normal 2.0-7.7 [facility] Comment on above: Performed By: #### L 100.0100, L500.2500 ####[facility] [address] [place], [address] Basophils/100 WBC (Bld) 1.3 % High 0-1 [facility] Comment on above: Performed By: #### L 100.0100, L500.2500 ####[facility] [address] [place], [address] Eosinophils/100 WBC (Bld) 8.2 % High 0-5 [facility] Comment on above: Performed By: #### L 100.0100, L500.2500 ####[facility] [address] [place], [address] Erythrocyte distribution width (RBC) [Ratio] 13.5 % Normal 11.6-14.6 [facility] Comment on above: Performed By: #### L 100.0100, L500.2500 ####[facility] [address] [place], [address] Hematocrit (Bld) [Volume fraction] 39.2 % Low 40-54 [facility] Comment on above: Performed By: #### L 100.0100, L500.2500 ####[facility] [address] [place], [address] Hemoglobin (Bld) [Mass/Vol] 12.8 g/dL Low 13.0-16.5 [facility] Comment on above: Performed By: #### L 100.0100, L500.2500 ####[facility] [address] [place], [address] IG% 0.400 Normal 0.0-0.9 [facility] Comment on above: Result Comment: IG% - Immature Granulocytes (promyelocytes, myelocytes andmetamyelocytes) > 1% indicates that a LEFT SHIFT is Present. Performed By: #### L 100.0100, L500.2500 ####[facility] [address] [place], [address] Lymphocytes/100 WBC (Bld) 22.3 % Normal 19-41 [facility] Comment on above: Performed By: #### L 100.0100, L500.2500 ####[facility] [address] [place], [address] MCH (RBC) [Entitic mass] 31.4 pg Normal 27.0-32.0 [facility] Comment on above: Performed By: #### L 100.0100, L500.2500 ####[facility] [address] [place], [address] MCHC (RBC) [Mass/Vol] 32.7 g/dL Normal 32-36 [facility] Comment on above: Performed By: #### L 100.0100, L500.2500 ####[facility] [address] [place], [address] MCV (RBC) [Entitic vol] 96.1 fL High 80-94 [facility] Comment on above: Performed By: #### L 100.0100, L500.2500 ####[facility] [address] [place], [address] Monocytes/100 WBC (Bld) 8.0 % Normal 0-10 [facility] Comment on above: Performed By: #### L 100.0100, L500.2500 ####[facility] [address] [place], [address] Neutrophils/100 WBC (Bld) 59.8 % Normal 47-70 [facility] Comment on above: Performed By: #### L 100.0100, L500.2500 ####[facility] [address] [place], [address] Nucleated RBC (Bld) [#/Vol] 0 10*3/uL Normal 0-5 [facility] Comment on above: Performed By: #### L 100.0100, L500.2500 ####[facility] [address] [place], [address] Platelet mean volume (Bld) [Entitic vol] 9.8 fL Normal 6.2-12.0 [facility] Comment on above: Performed By: #### L 100.0100, L500.2500 ####[facility] [address] [place], [address] Platelets (Bld) [#/Vol] 277 10*3/uL Normal 150-450 [facility] Comment on above: Performed By: #### L 100.0100, L500.2500 ####[facility] [address] [place], [address] RBC (Bld) [#/Vol] 4.08 10*6/uL Low 4.6-6.2 [facility] Comment on above: Performed By: #### L 100.0100, L500.2500 ####[facility] [address] [place], [address] RDW SD 47.8 fl High 35.1-43.9 [facility] Comment on above: Performed By: #### L 100.0100, L500.2500 ####[facility] [address] [place], [address] WBC (Bld) [#/Vol] 5.3 10*3/uL Normal 4.4-11.0 [facility] Comment on above: Performed By: #### L 100.0100, L500.2500 ####[facility] [address] [place], [address] Basic Metabolic Profile (BMP )on 08-28-2024 BUN/CRE 21.6 RATIO High 10-20 [facility] Comment on above: Performed By: #### L 100.0100, L500.2500 ####[facility] [address] [place], [address] Calcium [Mass/Vol] 9.8 mg/dL Normal 7.6-11.0 [facility] Comment on above: Performed By: #### L 100.0100, L500.2500 ####[facility] [address] [place], [address] Chloride [Moles/Vol] 105 mmol/L Normal 98-108 [facility] Comment on above: Performed By: #### L 100.0100, L500.2500 ####[facility] [address] [place], [address] CO2 [Moles/Vol] 21.9 mmol/L Normal 21.0-32.0 [facility] Comment on above: Performed By: #### L 100.0100, L500.2500 ####[facility] [address] [place], [address] Creatinine [Mass/Vol] 1.14 mg/dL Normal 0.70-1.20 [facility] Comment on above: Performed By: #### L 100.0100, L500.2500 ####[facility] [address] [place], [address] ECRCL 54.17 ml/min Normal 50-250 [facility] Comment on above: Performed By: #### L 100.0100, L500.2500 ####[facility] [address] [place], [address] GAP 13 Normal 5-15 [facility] Comment on above: Performed By: #### L 100.0100, L500.2500 ####[facility] [address] [place], [address] GFR/1.73 sq M.predicted among non-blacks MDRD (S/P/Bld) [Vol rate/Area] 67 mL/min/{1.73_m2} Normal >60 [facility] Comment on above: Result Comment: mL/m in/1.73m2 CKD-EPI Creatinine Equation (2020) Performed By: #### L 100.0100, L500.2500 ####[facility] [address] [place], [address] Glucose [Mass/Vol] 93 mg/dL Normal 70-99 [facility] Comment on above: Performed By: #### L 100.0100, L500.2500 ####[facility] [address] [place], [address] Potassium [Moles/Vol] 3.8 mmol/L Normal 3.3-5.1 [facility] Comment on above: Performed By: #### L 100.0100, L500.2500 ####[facility] [address] [place], [address] Sodium [Moles/Vol] 140 mmol/L Normal 133-145 [facility] Comment on above: Performed By: #### L 100.0100, L500.2500 ####[facility] [address] [place], [address] Urea nitrogen [Mass/Vol] 25 mg/dL High 4-19 [facility] Comment on above: Performed By: #### L 100.0100, L500.2500 ####[facility] [address] [place], [address] CBC W/Diff, Automatedon 08-17-2024 Absolute Lymph 1.06 X10 3/uL Normal 0.83-4.51 [facility] Comment on above: Performed By: #### L 100.0100, L500.2500 ####[facility] [address] [place], [address] Absolute Neut 2.5 X10 3/uL Normal 2.0-7.7 [facility] Comment on above: Performed By: #### L 100.0100, L500.2500 ####[facility] [address] [place], [address] Basophils/100 WBC (Bld) 1.8 % High 0-1 [facility] Comment on above: Performed By: #### L 100.0100, L500.2500 ####[facility] [address] [place], [address] Eosinophils/100 WBC (Bld) 7.5 % High 0-5 [facility] Comment on above: Performed By: #### L 100.0100, L500.2500 ####[facility] [address] [place], [address] Erythrocyte distribution width (RBC) [Ratio] 13.3 % Normal 11.6-14.6 [facility] Comment on above: Performed By: #### L 100.0100, L500.2500 ####[facility] [address] [place], [address] Hematocrit (Bld) [Volume fraction] 39.0 % Low 40-54 [facility] Comment on above: Performed By: #### L 100.0100, L500.2500 ####[facility] [address] [place], [address] Hemoglobin (Bld) [Mass/Vol] 12.8 g/dL Low 13.0-16.5 [facility] Comment on above: Performed By: #### L 100.0100, L500.2500 ####[facility] [address] [place], [address] IG% 0.400 Normal 0.0-0.9 [facility] Comment on above: Result Comment: IG% - Immature Granulocytes (promyelocytes, myelocytes andmetamyelocytes) > 1% indicates that a LEFT SHIFT is Present. Performed By: #### L 100.0100, L500.2500 ####[facility] [address] [place], [address] Lymphocytes/100 WBC (Bld) 23.4 % Normal 19-41 [facility] Comment on above: Performed By: #### L 100.0100, L500.2500 ####[facility] [address] [place], [address] MCH (RBC) [Entitic mass] 31.1 pg Normal 27.0-32.0 [facility] Comment on above: Performed By: #### L 100.0100, L500.2500 ####[facility] [address] [place], [address] MCHC (RBC) [Mass/Vol] 32.8 g/dL Normal 32-36 [facility] Comment on above: Performed By: #### L 100.0100, L500.2500 ####[facility] [address] [place], [address] MCV (RBC) [Entitic vol] 94.7 fL High 80-94 [facility] Comment on above: Performed By: #### L 100.0100, L500.2500 ####[facility] [address] [place], [address] Monocytes/100 WBC (Bld) 11.3 % High 0-10 [facility] Comment on above: Performed By: #### L 100.0100, L500.2500 ####[facility] [address] [place], [address] Neutrophils/100 WBC (Bld) 55.6 % Normal 47-70 [facility] Comment on above: Performed By: #### L 100.0100, L500.2500 ####[facility] [address] [place], [address] Nucleated RBC (Bld) [#/Vol] 0 10*3/uL Normal 0-5 [facility] Comment on above: Performed By: #### L 100.0100, L500.2500 ####[facility] [address] [place], [address] Platelet mean volume (Bld) [Entitic vol] 9.8 fL Normal 6.2-12.0 [facility] Comment on above: Performed By: #### L 100.0100, L500.2500 ####[facility] [address] [place], [address] Platelets (Bld) [#/Vol] 279 10*3/uL Normal 150-450 [facility] Comment on above: Performed By: #### L 100.0100, L500.2500 ####[facility] [address] [place], [address] RBC (Bld) [#/Vol] 4.12 10*6/uL Low 4.6-6.2 [facility] Comment on above: Performed By: #### L 100.0100, L500.2500 ####[facility] [address] [place], [address] RDW SD 46.1 fl High 35.1-43.9 [facility] Comment on above: Performed By: #### L 100.0100, L500.2500 ####[facility] [address] [place], [address] WBC (Bld) [#/Vol] 4.5 10*3/uL Normal 4.4-11.0 [facility] Comment on above: Performed By: #### L 100.0100, L500.2500 ####[facility] [address] [place], [address] Basic Metabolic Profile (BMP )on 08-27-2024 BUN/CRE 17.2 RATIO Normal 10-20 [facility] Comment on above: Performed By: #### L 100.0100, L500.2500 ####[facility] [address] [place], [address] Calcium [Mass/Vol] 9.5 mg/dL Normal 7.6-11.0 [facility] Comment on above: Performed By: #### L 100.0100, L500.2500 ####[facility] [address] [place], [address] Chloride [Moles/Vol] 104 mmol/L Normal 98-108 [facility] Comment on above: Performed By: #### L 100.0100, L500.2500 ####[facility] [address] [place], [address] CO2 [Moles/Vol] 19.9 mmol/L Low 21.0-32.0 [facility] Comment on above: Performed By: #### L 100.0100, L500.2500 ####[facility] [address] [place], [address] Creatinine [Mass/Vol] 1.18 mg/dL Normal 0.70-1.20 [facility] Comment on above: Performed By: #### L 100.0100, L500.2500 ####[facility] [address] [place], [address] ECRCL 52.25 ml/min Normal 50-250 [facility] Comment on above: Performed By: #### L 100.0100, L500.2500 ####[facility] [address] [place], [address] GAP 14 Normal 5-15 [facility] Comment on above: Performed By: #### L 100.0100, L500.2500 ####[facility] [address] [place], [address] GFR/1.73 sq M.predicted among non-blacks MDRD (S/P/Bld) [Vol rate/Area] 64 mL/min/{1.73_m2} Normal >60 [facility] Comment on above: Result Comment: mL/m in/1.73m2 CKD-EPI Creatinine Equation (2020) Performed By: #### L 100.0100, L500.2500 ####[facility] [address] [place], [address] Glucose [Mass/Vol] 97 mg/dL Normal 70-99 [facility] Comment on above: Performed By: #### L 100.0100, L500.2500 ####[facility] [address] [place], [address] Potassium [Moles/Vol] 3.4 mmol/L Normal 3.3-5.1 [facility] Comment on above: Performed By: #### L 100.0100, L500.2500 ####[facility] [address] [place], [address] Sodium [Moles/Vol] 139 mmol/L Normal 133-145 [facility] Comment on above: Performed By: #### L 100.0100, L500.2500 ####[facility] [address] [place], [address] Urea nitrogen [Mass/Vol] 20 mg/dL High 4-19 [facility] Comment on above: Performed By: #### L 100.0100, L500.2500 ####[facility] [address] [place], [address] Bilirubin Test strip Ql (U)O rdered By: Celia Toribio on 08-27-2024 Bilirubin Ql (U) Negative Negative [facility] CBC W/Diff, Automatedon 08-17 Absolute Lymph 0.95 X10 3/uL Normal 0.83-4.51 [facility] Comment on above: Performed By: #### L 100.0100, L500.2500 ####[facility] [address] [place], [address] Absolute Neut 2.3 X10 3/uL Normal 2.0-7.7 [facility] Comment on above: Performed By: #### L 100.0100, L500.2500 ####[facility] [address] [place], [address] Basophils/100 WBC (Bld) 1.2 % High 0-1 [facility] Comment on above: Performed By: #### L 100.0100, L500.2500 ####[facility] [address] [place], [address] Eosinophils/100 WBC (Bld) 6.3 % High 0-5 [facility] Comment on above: Performed By: #### L 100.0100, L500.2500 ####[facility] [address] [place], [address] Erythrocyte distribution width (RBC) [Ratio] 13.3 % Normal 11.6-14.6 [facility] Comment on above: Performed By: #### L 100.0100, L500.2500 ####[facility] [address] [place], [address] Hematocrit (Bld) [Volume fraction] 38.4 % Low 40-54 [facility] Comment on above: Performed By: #### L 100.0100, L500.2500 ####[facility] [address] [place], [address] Hemoglobin (Bld) [Mass/Vol] 12.8 g/dL Low 13.0-16.5 [facility] Comment on above: Performed By: #### L 100.0100, L500.2500 ####[facility] [address] [place], [address] IG% 0.200 Normal 0.0-0.9 [facility] Comment on above: Result Comment: IG% - Immature Granulocytes (promyelocytes, myelocytes andmetamyelocytes) > 1% indicates that a LEFT SHIFT is Present. Performed By: #### L 100.0100, L500.2500 ####[facility] [address] [place], [address] Lymphocytes/100 WBC (Bld) 23.0 % Normal 19-41 [facility] Comment on above: Performed By: #### L 100.0100, L500.2500 ####[facility] [address] [place], [address] MCH (RBC) [Entitic mass] 31.4 pg Normal 27.0-32.0 [facility] Comment on above: Performed By: #### L 100.0100, L500.2500 ####[facility] [address] [place], [address] MCHC (RBC) [Mass/Vol] 33.3 g/dL Normal 32-36 [facility] Comment on above: Performed By: #### L 100.0100, L500.2500 ####[facility] [address] [place], [address] MCV (RBC) [Entitic vol] 94.3 fL High 80-94 [facility] Comment on above: Performed By: #### L 100.0100, L500.2500 ####[facility] [address] [place], [address] Monocytes/100 WBC (Bld) 13.1 % High 0-10 [facility] Comment on above: Performed By: #### L 100.0100, L500.2500 ####[facility] [address] [place], [address] Neutrophils/100 WBC (Bld) 56.2 % Normal 47-70 [facility] Comment on above: Performed By: #### L 100.0100, L500.2500 ####[facility] [address] [place], [address] Nucleated RBC (Bld) [#/Vol] 0 10*3/uL Normal 0-5 [facility] Comment on above: Performed By: #### L 100.0100, L500.2500 ####[facility] [address] [place], [address] Platelet mean volume (Bld) [Entitic vol] 10.0 fL Normal 6.2-12.0 [facility] Comment on above: Performed By: #### L 100.0100, L500.2500 ####[facility] [address] [place], [address] Platelets (Bld) [#/Vol] 253 10*3/uL Normal 150-450 [facility] Comment on above: Performed By: #### L 100.0100, L500.2500 ####[facility] [address] [place], [address] RBC (Bld) [#/Vol] 4.07 10*6/uL Low 4.6-6.2 [facility] Comment on above: Performed By: #### L 100.0100, L500.2500 ####[facility] [address] [place], [address] RDW SD 46.1 fl High 35.1-43.9 [facility] Comment on above: Performed By: #### L 100.0100, L500.2500 ####[facility] [address] [place], [address] WBC (Bld) [#/Vol] 4.1 10*3/uL Low 4.4-11.0 [facility] Comment on above: Performed By: #### L 100.0100, L500.2500 ####[facility] [address] [place], [address] CBC-Complete Blood Cnt No Di ffon 08-27-2024 Erythrocyte distribution width (RBC) [Ratio] 13.4 % Normal 11.6-14.6 [facility] Comment on above: Performed By: #### L 100.0500 ####[facility] [address] [place], [address] Hematocrit (Bld) [Volume fraction] 40.6 % Normal 40-54 [facility] Comment on above: Performed By: #### L 100.0500 ####[facility] [address] [place], [address] Hemoglobin (Bld) [Mass/Vol] 13.5 g/dL Normal 13.0-16.5 [facility] Comment on above: Performed By: #### L 100.0500 ####[facility] [address] [place], [address] MCH (RBC) [Entitic mass] 31.5 pg Normal 27.0-32.0 [facility] Comment on above: Performed By: #### L 100.0500 ####[facility] [address] [place], [address] MCHC (RBC) [Mass/Vol] 33.3 g/dL Normal 32-36 [facility] Comment on above: Performed By: #### L 100.0500 ####[facility] [address] [place], [address] MCV (RBC) [Entitic vol] 94.6 fL High 80-94 [facility] Comment on above: Performed By: #### L 100.0500 ####[facility] [address] [place], [address] Platelet mean volume (Bld) [Entitic vol] 9.8 fL Normal 6.2-12.0 [facility] Comment on above: Performed By: #### L 100.0500 ####[facility] [address] [place], [address] Platelets (Bld) [#/Vol] 283 10*3/uL Normal 150-450 [facility] Comment on above: Performed By: #### L 100.0500 ####[facility] [address] [place], [address] RBC (Bld) [#/Vol] 4.29 10*6/uL Low 4.6-6.2 [facility] Comment on above: Performed By: #### L 100.0500 ####[facility] [address] [place], [address] RDW SD 46.0 fl High 35.1-43.9 [facility] Comment on above: Performed By: #### L 100.0500 ####[facility] [address] [place], [address] WBC (Bld) [#/Vol] 4.9 10*3/uL Normal 4.4-11.0 [facility] Comment on above: Performed By: #### L 100.0500 ####[facility] [address] [place], [address] Epithelial cells.squamous LM Ql (Urine sed)Ordered By: Celia Toribio on 08-27-2024 Epithelial cells.squamous LM.HPF (Urine sed) [#/Area] 0 /[HPF] 0-5 [facility] Glucose Ql (U)Ordered By: Yariel Toribio on 08-27-2024 Urine Glucose (UA) Normal mg/dl Normal [facility] Ketones Test strip Ql (U)Ord ered By: Celia Toribio on 08-27-2024 Ketones Ql (U) Negative Negative [facility] Microscopic analysis of urin e for red blood cells (RBC)Ordered By: Celia Toribio on 08-27-2024 Microscopic analysis of urine for red blood cells (RBC) 0 SEEN /hpf 0-5 [facility] Urine RBC 0 SEEN /hpf 0-5 [facility] Mucus LM Ql (Urine sed)Order ed By: Celia Toribio on 08-27-2024 Mucus Ql (Urine sed) 0 SEEN /hpf [facility] Nitrite Test strip Ql (U)Ord ered By: Celia Toribio on 08-27-2024 Nitrite Ql (U) Positive High Negative [facility] Protein Test strip Ql (U)Ord ered By: Celia Toribio on 08-27-2024 Protein Ql (U) 30 mg/dl High Negative [facility] Squamous epithelial cells de tection in urine sediment by light microscopyOrdered By: Celia Toribio on 08-27-2024 Epithelial cells.squamous LM Ql (Urine sed) 0-5 SEEN /hpf 0-5 [facility] Urinalysis, Completeon 08-27 BACTERIA 4+ /hpf Normal None Seen [facility] Comment on above: Order Comment: CLEAN CATCH Performed By: #### M 100.2200, L400.0001 ####[facility] [address] [place], [address] EPI,SQUAMOUS 0-5 SEEN Normal 0-5 [facility] Comment on above: Order Comment: CLEAN CATCH Performed By: #### M 100.2200, L400.0001 ####[facility] [address] [place], [address] RBC 0 SEEN Normal 0-5 [facility] Comment on above: Order Comment: CLEAN CATCH Performed By: #### M 100.2200, L400.0001 ####[facility] [address] [place], [address] WBC 25-50 SEEN Normal 0-5 [facility] Comment on above: Order Comment: CLEAN CATCH Performed By: #### M 100.2200, L400.0001 ####[facility] [address] [place], [address] Mucus Ql (Urine sed) [address] [facility] Comment on above: Order Comment: CLEAN CATCH Performed By: #### M 100.2200, L400.0001 ####[facility] [address] [place], [address] Urine blood detectionOrdered By: Celia Toribio on 08-27-2024 Urine Occult Blood Negative Negative [facility] Urine clarityOrdered By: Allyson Toribio on 08-27-2024 Clarity (U) Clear Clear [facility] Urine color determinationOrd ered By: Celia Toribio on 08-27-2024 Color (U) Yellow Yellow [facility] Urine cultureOrdered By: Allyson Toribio on 08-27-2024 Bacteria identified Cx Nom (U) ESBL Escherichia coli Abnormal [facility] Urine glucose detectionOrder ed By: Celia Toribio on 08-27-2024 Glucose Ql (U) Normal mg/dl Normal [facility] Urine leukocyte esterase det ection by dipstickOrdered By: Celia Toribio on 08-27-2024 Leukocyte esterase Test strip Ql (U) 500 /ul High Negative [facility] Urine pHOrdered By: Celia rapp on 08-27-2024 pH (U) 6.0 [pH] 5.0 - 8.0 [facility] Urine sediment bacteria coun t by microscopy (number/high power field)Ordered By: Celia Toribio on 08-27-2024 Bacteria LM.HPF (Urine sed) [#/Area] 4 /[HPF] None Seen [facility] Urine specific gravity measu rementOrdered By: Celia Toribio on 08-27-2024 Specific gravity (U) [Rel density] 1.015 1.002-1.030 [facility] Urine urobilinogen measureme ntOrdered By: Celia Toribio on 08-27-2024 Urobilinogen Ql (U) Normal mg/dl Normal [facility] Urobilinogen Ql (U)Ordered B y: Celia Toribio on 08-27-2024 Urine Urobilinogen Normal mg/dl Normal [facility] White blood cell countOrdere d By: Celia Toribio on 08-27-2024 Urine WBC 25-50 SEEN /hpf 0-5 [facility] White blood cell count 25-50 SEEN /hpf 0-5 [facility] Bilirubin, totalOrdered By: Lisha Talamantes on 08-26-2024 Bilirubin [Mass/Vol] 0.25 mg/dL 0.00-1.30 [facility] CBC W/Diff, Automatedon 08-17 Absolute Lymph 0.94 X10 3/uL Normal 0.83-4.51 [facility] Comment on above: Performed By: #### L 100.0100, L500.4050, L501.5200, L501.2300 ####[facility] [address] [place], [address] Absolute Neut 2.9 X10 3/uL Normal 2.0-7.7 [facility] Comment on above: Performed By: #### L 100.0100, L500.4050, L501.5200, L501.2300 ####[facility] [address] [place], [address] Basophils/100 WBC (Bld) 1.1 % High 0-1 [facility] Comment on above: Performed By: #### L 100.0100, L500.4050, L501.5200, L501.2300 ####[facility] [address] [place], [address] Eosinophils/100 WBC (Bld) 3.4 % Normal 0-5 [facility] Comment on above: Performed By: #### L 100.0100, L500.4050, L501.5200, L501.2300 ####[facility] [address] [place], [address] Erythrocyte distribution width (RBC) [Ratio] 13.3 % Normal 11.6-14.6 [facility] Comment on above: Performed By: #### L 100.0100, L500.4050, L501.5200, L501.2300 ####[facility] [address] [place], [address] Hematocrit (Bld) [Volume fraction] 40.6 % Normal 40-54 [facility] Comment on above: Performed By: #### L 100.0100, L500.4050, L501.5200, L501.2300 ####[facility] [address] [place], [address] Hemoglobin (Bld) [Mass/Vol] 13.3 g/dL Normal 13.0-16.5 [facility] Comment on above: Performed By: #### L 100.0100, L500.4050, L501.5200, L501.2300 ####[facility] [address] [place], [address] IG% 0.200 Normal 0.0-0.9 [facility] Comment on above: Result Comment: IG% - Immature Granulocytes (promyelocytes, myelocytes andmetamyelocytes) > 1% indicates that a LEFT SHIFT is Present. Performed By: #### L 100.0100, L500.4050, L501.5200, L501.2300 ####[facility] [address] [place], [address] Lymphocytes/100 WBC (Bld) 19.8 % Normal 19-41 [facility] Comment on above: Performed By: #### L 100.0100, L500.4050, L501.5200, L501.2300 ####[facility] [address] [place], [address] MCH (RBC) [Entitic mass] 31.2 pg Normal 27.0-32.0 [facility] Comment on above: Performed By: #### L 100.0100, L500.4050, L501.5200, L501.2300 ####[facility] [address] [place], [address] MCHC (RBC) [Mass/Vol] 32.8 g/dL Normal 32-36 [facility] Comment on above: Performed By: #### L 100.0100, L500.4050, L501.5200, L501.2300 ####[facility] [address] [place], [address] MCV (RBC) [Entitic vol] 95.3 fL High 80-94 [facility] Comment on above: Performed By: #### L 100.0100, L500.4050, L501.5200, L501.2300 ####[facility] [address] [place], [address] Monocytes/100 WBC (Bld) 15.2 % High 0-10 [facility] Comment on above: Performed By: #### L 100.0100, L500.4050, L501.5200, L501.2300 ####[facility] [address] [place], [address] Neutrophils/100 WBC (Bld) 60.3 % Normal 47-70 [facility] Comment on above: Performed By: #### L 100.0100, L500.4050, L501.5200, L501.2300 ####[facility] [address] [place], [address] Nucleated RBC (Bld) [#/Vol] 0 10*3/uL Normal 0-5 [facility] Comment on above: Performed By: #### L 100.0100, L500.4050, L501.5200, L501.2300 ####[facility] [address] [place], [address] Platelet mean volume (Bld) [Entitic vol] 9.9 fL Normal 6.2-12.0 [facility] Comment on above: Performed By: #### L 100.0100, L500.4050, L501.5200, L501.2300 ####[facility] [address] [place], [address] Platelets (Bld) [#/Vol] 242 10*3/uL Normal 150-450 [facility] Comment on above: Performed By: #### L 100.0100, L500.4050, L501.5200, L501.2300 ####[facility] [address] [place], [address] RBC (Bld) [#/Vol] 4.26 10*6/uL Low 4.6-6.2 [facility] Comment on above: Performed By: #### L 100.0100, L500.4050, L501.5200, L501.2300 ####[facility] [address] [place], [address] RDW SD 46.7 fl High 35.1-43.9 [facility] Comment on above: Performed By: #### L 100.0100, L500.4050, L501.5200, L501.2300 ####[facility] [address] [place], [address] WBC (Bld) [#/Vol] 4.7 10*3/uL Normal 4.4-11.0 [facility] Comment on above: Performed By: #### L 100.0100, L500.4050, L501.5200, L501.2300 ####[facility] [address] [place], [address] COVID 19 AG RAPID (ОЛЕГ Dixon)on 08-26-2024 SARS-CoV-2 (COVID-19) RNA ALEENA+probe Ql (Unsp spec) Normal [facility] Comment on above: Performed By: #### M 100.505 ####[facility] [address] [place], [address] COVID-19 virus antigen assay Ordered By: Celia Toribio on 08-26-2024 SARS-CoV-2 (COVID-19) Ag IA.rapid Ql (Resp) [facility] Comprehensive Metabolic Prof chetan 08-26-2024 Albumin [Mass/Vol] 4.0 g/dL Normal 3.4-4.8 [facility] Comment on above: Performed By: #### L 100.0100, L500.4050, L501.5200, L501.2300 ####[facility] [address] [place], [address] Albumin/Globulin [Mass ratio] 1.4 {ratio} Normal 0.9-2.4 [facility] Comment on above: Performed By: #### L 100.0100, L500.4050, L501.5200, L501.2300 ####[facility] [address] [place], [address] ALK PHOS 67 U/L Normal 40-129 [facility] Comment on above: Performed By: #### L 100.0100, L500.4050, L501.5200, L501.2300 ####[facility] [address] [place], [address] ALT [Catalytic activity/Vol] 28 U/L Normal <=46 [facility] Comment on above: Performed By: #### L 100.0100, L500.4050, L501.5200, L501.2300 ####[facility] [address] [place], [address] AST [Catalytic activity/Vol] 23 U/L Normal <=37 [facility] Comment on above: Performed By: #### L 100.0100, L500.4050, L501.5200, L501.2300 ####[facility] [address] [place], [address] Bilirubin [Mass/Vol] 0.25 mg/dL Normal 0.00-1.30 [facility] Comment on above: Performed By: #### L 100.0100, L500.4050, L501.5200, L501.2300 ####[facility] [address] [place], [address] BUN/CRE 21.8 RATIO High 10-20 [facility] Comment on above: Performed By: #### L 100.0100, L500.4050, L501.5200, L501.2300 ####[facility] [address] [place], [address] Calcium [Mass/Vol] 9.4 mg/dL Normal 7.6-11.0 [facility] Comment on above: Performed By: #### L 100.0100, L500.4050, L501.5200, L501.2300 ####[facility] [address] [place], [address] Chloride [Moles/Vol] 105 mmol/L Normal 98-108 [facility] Comment on above: Performed By: #### L 100.0100, L500.4050, L501.5200, L501.2300 ####[facility] [address] [place], [address] CO2 [Moles/Vol] 17.6 mmol/L Low 21.0-32.0 [facility] Comment on above: Performed By: #### L 100.0100, L500.4050, L501.5200, L501.2300 ####[facility] [address] [place], [address] Creatinine [Mass/Vol] 1.04 mg/dL Normal 0.70-1.20 [facility] Comment on above: Performed By: #### L 100.0100, L500.4050, L501.5200, L501.2300 ####[facility] [address] [place], [address] ECRCL 58.77 ml/min Normal 50-250 [facility] Comment on above: Performed By: #### L 100.0100, L500.4050, L501.5200, L501.2300 ####[facility] [address] [place], [address] GAP 16 High 5-15 [facility] Comment on above: Performed By: #### L 100.0100, L500.4050, L501.5200, L501.2300 ####[facility] [address] [place], [address] GFR/1.73 sq M.predicted among non-blacks MDRD (S/P/Bld) [Vol rate/Area] 75 mL/min/{1.73_m2} Normal >60 [facility] Comment on above: Result Comment: mL/m in/1.73m2 CKD-EPI Creatinine Equation (2020) Performed By: #### L 100.0100, L500.4050, L501.5200, L501.2300 ####[facility] [address] [place], [address] Globulin (S) [Mass/Vol] 2.9 g/dL Normal 2.2-4.2 [facility] Comment on above: Performed By: #### L 100.0100, L500.4050, L501.5200, L501.2300 ####[facility] [address] [place], [address] Glucose [Mass/Vol] 88 mg/dL Normal 70-99 [facility] Comment on above: Performed By: #### L 100.0100, L500.4050, L501.5200, L501.2300 ####[facility] [address] [place], [address] Potassium [Moles/Vol] 3.6 mmol/L Normal 3.3-5.1 [facility] Comment on above: Performed By: #### L 100.0100, L500.4050, L501.5200, L501.2300 ####[facility] [address] [place], [address] Sodium [Moles/Vol] 139 mmol/L Normal 133-145 [facility] Comment on above: Performed By: #### L 100.0100, L500.4050, L501.5200, L501.2300 ####[facility] [address] [place], [address] T PROT 6.9 g/dL Normal 5.9-8.4 [facility] Comment on above: Performed By: #### L 100.0100, L500.4050, L501.5200, L501.2300 ####[facility] [address] [place], [address] Urea nitrogen [Mass/Vol] 23 mg/dL High 4-19 [facility] Comment on above: Performed By: #### L 100.0100, L500.4050, L501.5200, L501.2300 ####[facility] [address] [place], [address] Laboratory - Chemistry and C hemistry - challengeOrdered By: Lisha Talamantes on 08-26-2024 AST [Catalytic activity/Vol] 23 U/L <38 [facility] Lactic Acidon 08-26-2024 Lactate [Moles/Vol] 1.1 mmol/L Normal 0.0-2.0 [facility] Comment on above: Order Comment: Y Performed By: #### L 503.6005 ####[facility] [address] [place], [address] Lactic acid measurementOrder ed By: Celia Toribio on 08-26-2024 Lactate [Moles/Vol] 1.1 mmol/L 0.0-2.0 [facility] Magnesiumon 08-26-2024 Magnesium [Mass/Vol] 1.9 mg/dL Normal 1.5-2.2 [facility] Comment on above: Performed By: #### L 100.0100, L500.4050, L501.5200, L501.2300 ####[facility] [address] [place], [address] Magnesium (Unsp spec) [Mass/ Vol]Ordered By: Lisha Talamantes on 08-26-2024 Magnesium [Mass/Vol] 1.9 mg/dL 1.5-2.2 [facility] Magnesium measurement (mass/ volume)Ordered By: Lisha Talamantes on 08-26-2024 Magnesium (Unsp spec) [Mass/Vol] 1.9 mg/dL 1.5-2.2 [facility] No Panel InformationOrdered By: Lisha Talamantes on 08-26-2024 23 U/L <38 [facility] Phosphoruson 08-26-2024 Phosphate [Mass/Vol] 3.1 mg/dL Normal 2.7-4.5 [facility] Comment on above: Performed By: #### L 100.0100, L500.4050, L501.5200, L501.2300 ####[facility] [address] [place], [address] RESPIRATORY PANEL MOLECULARo n 08-26-2024 RP PANEL Normal [facility] Comment on above: Performed By: #### M 100.638 ####[facility] [address] [place], [address] Respiratory pathogens DNA an d RNA panel ALEENA+probe (Resp)Ordered By: Celia Toribio on 08-26-2024 Respiratory Panel (PCR) [facility] Respiratory pathogens detect ion panel by molecular detection methodOrdered By: Celia Toribio on 08-26-2024 Respiratory pathogens DNA and RNA panel ALEENA+probe (Resp) [facility] SARS-CoV-2 (COVID-19) Ag IA. rapid Ql (Resp)Ordered By: Celia Toribio on 08-26-2024 SARS-CoV-2 Antigen (Rapid) [facility] Serum globulin measurementOr dered By: Lisha Talamantes on 08-26-2024 Globulin (S) [Mass/Vol] 2.9 g/dL 2.2-4.2 [facility] Serum or plasma alanine saul otransferase (ALT) measurementOrdered By: Lisha Talamantes on 08-26-2024 ALT [Catalytic activity/Vol] 28 U/L <47 [facility] Serum or plasma albumin luis urement (mass/volume)Ordered By: Lisha Talamantes on 08-26-2024 Albumin [Mass/Vol] 4.0 g/dL 3.4-4.8 [facility] Serum or plasma albumin/glob ulin mass ratioOrdered By: Lisha Talamantes on 08-26-2024 Albumin/Globulin [Mass ratio] 1.4 {ratio} 0.9-2.4 [facility] Serum or plasma alkaline kathleen sphatase measurementOrdered By: Lisha Talamantes on 08-26-2024 ALP [Catalytic activity/Vol] 67 U/L 40-129 [facility] Serum phosphorus measurement Ordered By: Lisha Talamantes on 08-26-2024 Phosphorus Level 3.1 mg/dL 2.7-4.5 [facility] Total proteinOrdered By: Ying Talamantes on 08-26-2024 Protein [Mass/Vol] 6.9 g/dL 5.9-8.4 [facility] Absolute neutrophil countOrd ered By: Jaden Jauregui on 08-25-2024 Neutrophils (Bld) [#/Vol] 4.6 10*3/uL 2.0-7.7 [facility] Anion gap in Serum or Plasma Ordered By: Jaden Jauregui on 08-25-2024 Anion gap [Moles/Vol] 13 mmol/L 5-15 [facility] BUN/creatinine ratioOrdered By: Jaden Jauregui on 08-25-2024 Urea nitrogen/Creatinine [Mass ratio] 21.4 mg/mg High 10-20 [facility] Basophil percentageOrdered B y: Jaden Jauregui on 08-25-2024 Basophils/100 WBC (Bld) 0.8 % 0-1 [facility] Bilirubin, totalOrdered By: Jaden Jauregui on 08-25-2024 Bilirubin [Mass/Vol] 0.22 mg/dL 0.00-1.30 [facility] CBC W/Diff, Automatedon Absolute Lymph 0.61 X10 3/uL Low 0.83-4.51 [facility] Comment on above: Performed By: #### L 500.4050, L100.0100 ####[facility] [address] [place], [address] Absolute Neut 4.6 X10 3/uL Normal 2.0-7.7 [facility] Comment on above: Performed By: #### L 500.4050, L100.0100 ####[facility] [address] [place], [address] Basophils/100 WBC (Bld) 0.8 % Normal 0-1 [facility] Comment on above: Performed By: #### L 500.4050, L100.0100 ####[facility] [address] [place], [address] Eosinophils/100 WBC (Bld) 0.3 % Normal 0-5 [facility] Comment on above: Performed By: #### L 500.4050, L100.0100 ####[facility] [address] [place], [address] Erythrocyte distribution width (RBC) [Ratio] 13.2 % Normal 11.6-14.6 [facility] Comment on above: Performed By: #### L 500.4050, L100.0100 ####[facility] [address] [place], [address] Hematocrit (Bld) [Volume fraction] 43.3 % Normal 40-54 [facility] Comment on above: Performed By: #### L 500.4050, L100.0100 ####[facility] [address] [place], [address] Hemoglobin (Bld) [Mass/Vol] 14.2 g/dL Normal 13.0-16.5 [facility] Comment on above: Performed By: #### L 500.4050, L100.0100 ####[facility] [address] [place], [address] IG% 0.300 Normal 0.0-0.9 [facility] Comment on above: Result Comment: IG% - Immature Granulocytes (promyelocytes, myelocytes andmetamyelocytes) > 1% indicates that a LEFT SHIFT is Present. Performed By: #### L 500.4050, L100.0100 ####[facility] [address] [place], [address] Lymphocytes/100 WBC (Bld) 10.3 % Low 19-41 [facility] Comment on above: Performed By: #### L 500.4050, L100.0100 ####[facility] [address] [place], [address] MCH (RBC) [Entitic mass] 31.4 pg Normal 27.0-32.0 [facility] Comment on above: Performed By: #### L 500.4050, L100.0100 ####[facility] [address] [place], [address] MCHC (RBC) [Mass/Vol] 32.8 g/dL Normal 32-36 [facility] Comment on above: Performed By: #### L 500.4050, L100.0100 ####[facility] [address] [place], [address] MCV (RBC) [Entitic vol] 95.8 fL High 80-94 [facility] Comment on above: Performed By: #### L 500.4050, L100.0100 ####[facility] [address] [place], [address] Monocytes/100 WBC (Bld) 9.9 % Normal 0-10 [facility] Comment on above: Performed By: #### L 500.4050, L100.0100 ####[facility] [address] [place], [address] Neutrophils/100 WBC (Bld) 78.4 % High 47-70 [facility] Comment on above: Performed By: #### L 500.4050, L100.0100 ####[facility] [address] [place], [address] Nucleated RBC (Bld) [#/Vol] 0 10*3/uL Normal 0-5 [facility] Comment on above: Performed By: #### L 500.4050, L100.0100 ####[facility] [address] [place], [address] Platelet mean volume (Bld) [Entitic vol] 9.5 fL Normal 6.2-12.0 [facility] Comment on above: Performed By: #### L 500.4050, L100.0100 ####[facility] [address] [place], [address] Platelets (Bld) [#/Vol] 245 10*3/uL Normal 150-450 [facility] Comment on above: Performed By: #### L 500.4050, L100.0100 ####[facility] [address] [place], [address] RBC (Bld) [#/Vol] 4.52 10*6/uL Low 4.6-6.2 [facility] Comment on above: Performed By: #### L 500.4050, L100.0100 ####[facility] [address] [place], [address] RDW SD 46.6 fl High 35.1-43.9 [facility] Comment on above: Performed By: #### L 500.4050, L100.0100 ####[facility] [address] [place], [address] WBC (Bld) [#/Vol] 5.9 10*3/uL Normal 4.4-11.0 [facility] Comment on above: Performed By: #### L 500.4050, L100.0100 ####[facility] [address] [place], [address] Carbon dioxide, total [Moles /volume] in Central venous bloodOrdered By: Jaden Jauregui on 08-25-2024 CO2 [Moles/Vol] 24.5 mmol/L 21.0-32.0 [facility] Chest 1 View (Portable)on Chest 1 View (Portable) Normal [facility] Chloride assayOrdered By: Joseph Jauregui on 08-25-2024 Chloride [Moles/Vol] 102 mmol/L 98-108 [facility] Comprehensive Metabolic Prof ilon 08-25-2024 Albumin [Mass/Vol] 4.5 g/dL Normal 3.4-4.8 [facility] Comment on above: Performed By: #### L 500.4050, L100.0100 ####[facility] [address] [place], [address] Albumin/Globulin [Mass ratio] 1.4 {ratio} Normal 0.9-2.4 [facility] Comment on above: Performed By: #### L 500.4050, L100.0100 ####[facility] [address] [place], [address] ALK PHOS 77 U/L Normal 40-129 [facility] Comment on above: Performed By: #### L 500.4050, L100.0100 ####[facility] [address] [place], [address] ALT [Catalytic activity/Vol] 32 U/L Normal <=46 [facility] Comment on above: Performed By: #### L 500.4050, L100.0100 ####[facility] [address] [place], [address] AST [Catalytic activity/Vol] 26 U/L Normal <=37 [facility] Comment on above: Performed By: #### L 500.4050, L100.0100 ####[facility] [address] [place], [address] Bilirubin [Mass/Vol] 0.22 mg/dL Normal 0.00-1.30 [facility] Comment on above: Performed By: #### L 500.4050, L100.0100 ####[facility] [address] [place], [address] BUN/CRE 21.4 RATIO High 10-20 [facility] Comment on above: Performed By: #### L 500.4050, L100.0100 ####[facility] [address] [place], [address] Calcium [Mass/Vol] 10.0 mg/dL Normal 7.6-11.0 [facility] Comment on above: Performed By: #### L 500.4050, L100.0100 ####[facility] [address] [place], [address] Chloride [Moles/Vol] 102 mmol/L Normal 98-108 [facility] Comment on above: Performed By: #### L 500.4050, L100.0100 ####[facility] [address] [place], [address] CO2 [Moles/Vol] 24.5 mmol/L Normal 21.0-32.0 [facility] Comment on above: Performed By: #### L 500.4050, L100.0100 ####[facility] [address] [place], [address] Creatinine [Mass/Vol] 1.17 mg/dL Normal 0.70-1.20 [facility] Comment on above: Performed By: #### L 500.4050, L100.0100 ####[facility] [address] [place], [address] GAP 13 Normal 5-15 [facility] Comment on above: Performed By: #### L 500.4050, L100.0100 ####[facility] [address] [place], [address] GFR/1.73 sq M.predicted among non-blacks MDRD (S/P/Bld) [Vol rate/Area] 65 mL/min/{1.73_m2} Normal >60 [facility] Comment on above: Result Comment: mL/m in/1.73m2 CKD-EPI Creatinine Equation (2020) Performed By: #### L 500.4050, L100.0100 ####[facility] [address] [place], [address] Globulin (S) [Mass/Vol] 3.2 g/dL Normal 2.2-4.2 [facility] Comment on above: Performed By: #### L 500.4050, L100.0100 ####[facility] [address] [place], [address] Glucose [Mass/Vol] 98 mg/dL Normal 70-99 [facility] Comment on above: Performed By: #### L 500.4050, L100.0100 ####[facility] [address] [place], [address] Potassium [Moles/Vol] 3.8 mmol/L Normal 3.3-5.1 [facility] Comment on above: Performed By: #### L 500.4050, L100.0100 ####[facility] [address] [place], [address] Sodium [Moles/Vol] 139 mmol/L Normal 133-145 [facility] Comment on above: Performed By: #### L 500.4050, L100.0100 ####[facility] [address] [place], [address] T PROT 7.7 g/dL Normal 5.9-8.4 [facility] Comment on above: Performed By: #### L 500.4050, L100.0100 ####[facility] [address] [place], [address] Urea nitrogen [Mass/Vol] 25 mg/dL High 4-19 [facility] Comment on above: Performed By: #### L 500.4050, L100.0100 ####[facility] [address] [place], [address] Emergency Department Summary on 08-25-2024 Emergency Department Summary Normal [facility] Eosinophil percentageOrdered By: Jaden Jauregui on 08-25-2024 Eosinophils/100 WBC (Bld) 0.3 % 0-5 [facility] Erythrocyte distribution wid th ratioOrdered By: Jaden Jauregui on 08-25-2024 Erythrocyte distribution width (RBC) [Ratio] 13.2 % 11.6-14.6 [facility] Erythrocyte distribution wid th standard deviationOrdered By: Jaden Jauregui on 08-25-2024 Erythrocyte distribution width (RBC) [Entitic vol] 46.6 fL High 35.1-43.9 [facility] GFR/1.73 sq M.predicted gisella g non-blacks MDRD (S/P/Bld) [Vol rate/Area]Ordered By: Jaden Jauregui on 08-25-2024 Estimated GFR (MDRD) Non-Af Amer 65 >60 [facility] Comment on above: mL/min/1.73m2 CKD-EP I Creatinine Equation (2020) H AND P Exam - [facility] 08-25-2024 H&P Exam - Hospitalist Normal [facility] Hematocrit Auto (Bld) [Volum e fraction]Ordered By: Jaden Jauregui on 08-25-2024 Hematocrit (Bld) [Volume fraction] 43.3 % 40-54 [facility] Hemoglobin measurementOrdere d By: Jaden Jauregui on 08-25-2024 Hemoglobin (Bld) [Mass/Vol] 14.2 g/dL 13.0-16.5 [facility] Immature granulocytes/100 WB C Auto (Bld)Ordered By: Jdaen Jauregui on 08-25-2024 Immature granulocytes/100 WBC (Bld) 0.300 % 0.0-0.9 [facility] Comment on above: IG% - Immature Granu locytes (promyelocytes, myelocytes and metamyelocytes) > 1% indicates that a LEFT SHIFT is Present. Laboratory - Chemistry and C hemistry - challengeOrdered By: Jaden Jauregui on 08-25-2024 AST [Catalytic activity/Vol] 26 U/L <38 [facility] Lymphocytes Auto (Unsp spec) [#/Vol]Ordered By: Jaden Jauregui on 08-25-2024 Lymphocytes (Bld) [#/Vol] 0.61 10*3/uL Low 0.83-4.51 [facility] Lymphocytes/100 WBC Auto (Un sp spec)Ordered By: Jaden Jauregui on 08-25-2024 Lymphocytes/100 WBC (Bld) 10.3 % Low 19-41 [facility] MCV (mean corpuscular volume ) determinationOrdered By: Jaden Jauregui on 08-25-2024 MCV (RBC) [Entitic vol] 95.8 fL High 80-94 [facility] Mean corpuscular hemoglobin (MCH) determinationOrdered By: Jaden Jauregui on 08-25-2024 MCH (RBC) [Entitic mass] 31.4 pg 27.0-32.0 [facility] Mean corpuscular hemoglobin concentration (MCHC) determinationOrdered By: Jaden Jauregui on 08-25-2024 MCHC (RBC) [Mass/Vol] 32.8 g/dL 32-36 [facility] Mean platelet volume determi nationOrdered By: Jaden Jauregui on 08-25-2024 Platelet mean volume (Bld) [Entitic vol] 9.5 fL 6.2-12.0 [facility] Monocyte percentageOrdered B y: Jaden Jauregui on 08-25-2024 Monocytes/100 WBC (Bld) 9.9 % 0-10 [facility] Neutrophil percentageOrdered By: Jaden Jauregui on 08-25-2024 Neutrophils/100 WBC (Bld) 78.4 % High 47-70 [facility] Nucleated red blood cell per centageOrdered By: Jaden Jauregui on 08-25-2024 Nucleated RBC/100 WBC (Bld) [Ratio] 0 % 0-5 [facility] Platelet countOrdered By: Joseph Jauregui on 08-25-2024 Platelets (Bld) [#/Vol] 245 10*3/uL 150-450 [facility] Potassium (Unsp spec) [Mass/ Vol]Ordered By: Jaden Jauregui on 08-25-2024 Potassium [Moles/Vol] 3.8 mmol/L 3.3-5.1 [facility] RBC Auto (Bld) [#/Vol]Ordere d By: Jaden Jauregui on 08-25-2024 RBC (Bld) [#/Vol] 4.52 10*6/uL Low 4.6-6.2 [facility] Serum creatinine measurement (mass/volume)Ordered By: Jaden Jauregui on 08-25-2024 Creatinine [Mass/Vol] 1.17 mg/dL 0.70-1.20 [facility] Serum globulin measurementOr dered By: Jaden Jauregui on 08-25-2024 Globulin (S) [Mass/Vol] 3.2 g/dL 2.2-4.2 [facility] Serum glucose measurement (m ass/volume)Ordered By: Jaden Jauregui on 08-25-2024 Glucose [Mass/Vol] 98 mg/dL 70-99 [facility] Serum or plasma alanine saul otransferase (ALT) measurementOrdered By: Jaden Jauregui on 08-25-2024 ALT [Catalytic activity/Vol] 32 U/L <47 [facility] Serum or plasma albumin luis urement (mass/volume)Ordered By: Jaden Jauregui on 08-25-2024 Albumin [Mass/Vol] 4.5 g/dL 3.4-4.8 [facility] Serum or plasma albumin/glob ulin mass ratioOrdered By: Jaden Jauregui on 08-25-2024 Albumin/Globulin [Mass ratio] 1.4 {ratio} 0.9-2.4 [facility] Serum or plasma alkaline kathleen sphatase measurementOrdered By: Jaden Jauregui on 08-25-2024 ALP [Catalytic activity/Vol] 77 U/L 40-129 [facility] Serum or plasma calcium luis urement (mass/volume)Ordered By: Jaden Jauregui on 08-25-2024 Calcium [Mass/Vol] 10.0 mg/dL 7.6-11.0 [facility] Serum or plasma urea nitroge n measurement (mass/volume)Ordered By: Jaden Jauregui on 08-25-2024 Urea nitrogen [Mass/Vol] 25 mg/dL High 4-19 [facility] Sodium levelOrdered By: Maurice Jauregui on 08-25-2024 Sodium [Moles/Vol] 139 mmol/L 133-145 [facility] Total proteinOrdered By: Rad Jauregui on 08-25-2024 Protein [Mass/Vol] 7.7 g/dL 5.9-8.4 [facility] White blood cell (WBC) count Ordered By: Jaden Jauregui on 08-25-2024 WBC (Bld) [#/Vol] 5.9 10*3/uL 4.4-11.0 [facility] 28-US-Tbwqbka DOrdered By: Landry Prather on 07-15-2024 Vitamin D 25-Hydroxy 36.0 ng/mL [facility] Comment on above: Vitamin D 25(OH) Sta tus Range Deficiency <20 ng/mL (50nmol/L) Insufficiency 20 - 30 ng/mL (50 - 75 nmol/L) Sufficiency 30 - 100 ng/mL (75 - 250 nmol/L) Toxicity >100 ng/mL (>250 nmol/L) Absolute neutrophil countOrd ered By: Carla Pratehr on 07-15-2024 Neutrophils (Bld) [#/Vol] 2.7 10*3/uL 2.0-7.7 [facility] Albumin to globulin ratioOrd ered By: Carla Prather on 07-15-2024 Albumin/Globulin [Mass ratio] 1.0 {ratio} Normal 0.9-2.4 [facility] Comment on above: Order Comment: 414-2 Performed By: #### L 501.7900, L503.0105, L500.4050, L100.0100, L506.1000, L501.9985, L501.5200 ####[facility] [address] [place], [place], [id number] Basophil percentageOrdered B y: Carla Prather on 07-15-2024 Basophils/100 WBC (Bld) 1.4 % High 0-1 [facility] Bilirubin, totalOrdered By: Carla Prather on 07-15-2024 Bilirubin [Mass/Vol] 0.30 mg/dL Normal 0.20-1.00 [facility] Comment on above: For patients on eltr ombopag therapy, use of Dimension [place] TBIL is not recommended. Order Comment: 414-2 Result Comment: For patients on eltrombopag therapy, use of Dim[employer] [place] TBIL is not recommended. Performed By: #### L 501.7900, L503.0105, L500.4050, L100.0100, L506.1000, L501.9985, L501.5200 ####[facility] [address] [place], [place], [id number] Blood urea nitrogen (BUN)/cr eatinine ratioOrdered By: Carla Prather on 07-15-2024 Urea nitrogen/Creatinine [Mass ratio] 25.4 mg/mg High 10-20 [facility] CBC W/Diff, Automatedon 06-20 Absolute Lymph 1.38 X10 3/uL Normal 0.83-4.51 [facility] Comment on above: Order Comment: 414-2 Performed By: #### L 501.7900, L503.0105, L500.4050, L100.0100, L506.1000, L501.9985, L501.5200 ####[facility] [address] [place], [address] Absolute Neut 2.7 X10 3/uL Normal 2.0-7.7 [facility] Comment on above: Order Comment: 414-2 Performed By: #### L 501.7900, L503.0105, L500.4050, L100.0100, L506.1000, L501.9985, L501.5200 ####[facility] [address] [place], [address] Basophils/100 WBC (Bld) 1.4 % High 0-1 [facility] Comment on above: Order Comment: 414-2 Performed By: #### L 501.7900, L503.0105, L500.4050, L100.0100, L506.1000, L501.9985, L501.5200 ####[facility] [address] [place], [address] Eosinophils/100 WBC (Bld) 9.4 % High 0-5 [facility] Comment on above: Order Comment: 414-2 Performed By: #### L 501.7900, L503.0105, L500.4050, L100.0100, L506.1000, L501.9985, L501.5200 ####[facility] [address] [place], [address] Erythrocyte distribution width (RBC) [Ratio] 12.8 % Normal 11.6-14.6 [facility] Comment on above: Order Comment: 414-2 Performed By: #### L 501.7900, L503.0105, L500.4050, L100.0100, L506.1000, L501.9985, L501.5200 ####[facility] [address] [place], [address] Hematocrit (Bld) [Volume fraction] 45.8 % Normal 40-54 [facility] Comment on above: Order Comment: 414-2 Performed By: #### L 501.7900, L503.0105, L500.4050, L100.0100, L506.1000, L501.9985, L501.5200 ####[facility] [address] [place], [address] Hemoglobin (Bld) [Mass/Vol] 14.8 g/dL Normal 13.0-16.5 [facility] Comment on above: Order Comment: 414-2 Performed By: #### L 501.7900, L503.0105, L500.4050, L100.0100, L506.1000, L501.9985, L501.5200 ####[facility] [address] [place], [address] IG% 0.400 Normal 0.0-0.9 [facility] Comment on above: Order Comment: 414-2 Result Comment: IG% - Immature Granulocytes (promyelocytes, myelocytes andmetamyelocytes) > 1% indicates that a LEFT SHIFT is Present. Performed By: #### L 501.7900, L503.0105, L500.4050, L100.0100, L506.1000, L501.9985, L501.5200 ####[facility] [address] [place], [address] Lymphocytes/100 WBC (Bld) 26.9 % Normal 19-41 [facility] Comment on above: Order Comment: 414-2 Performed By: #### L 501.7900, L503.0105, L500.4050, L100.0100, L506.1000, L501.9985, L501.5200 ####[facility] [address] [place], [address] MCH (RBC) [Entitic mass] 31.2 pg Normal 27.0-32.0 [facility] Comment on above: Order Comment: 414-2 Performed By: #### L 501.7900, L503.0105, L500.4050, L100.0100, L506.1000, L501.9985, L501.5200 ####[facility] [address] [place], [address] MCHC (RBC) [Mass/Vol] 32.3 g/dL Normal 32-36 [facility] Comment on above: Order Comment: 414-2 Performed By: #### L 501.7900, L503.0105, L500.4050, L100.0100, L506.1000, L501.9985, L501.5200 ####[facility] [address] [place], [address] MCV (RBC) [Entitic vol] 96.4 fL High 80-94 [facility] Comment on above: Order Comment: 414-2 Performed By: #### L 501.7900, L503.0105, L500.4050, L100.0100, L506.1000, L501.9985, L501.5200 ####[facility] [address] [place], [address] Monocytes/100 WBC (Bld) 8.8 % Normal 0-10 [facility] Comment on above: Order Comment: 414-2 Performed By: #### L 501.7900, L503.0105, L500.4050, L100.0100, L506.1000, L501.9985, L501.5200 ####[facility] [address] [place], [address] Neutrophils/100 WBC (Bld) 53.1 % Normal 47-70 [facility] Comment on above: Order Comment: 414-2 Performed By: #### L 501.7900, L503.0105, L500.4050, L100.0100, L506.1000, L501.9985, L501.5200 ####[facility] [address] [place], [address] Nucleated RBC (Bld) [#/Vol] 0 10*3/uL Normal 0-5 [facility] Comment on above: Order Comment: 414-2 Performed By: #### L 501.7900, L503.0105, L500.4050, L100.0100, L506.1000, L501.9985, L501.5200 ####[facility] [address] [place], [address] Platelet mean volume (Bld) [Entitic vol] 9.6 fL Normal 6.2-12.0 [facility] Comment on above: Order Comment: 414-2 Performed By: #### L 501.7900, L503.0105, L500.4050, L100.0100, L506.1000, L501.9985, L501.5200 ####[facility] [address] [place], [address] Platelets (Bld) [#/Vol] 295 10*3/uL Normal 150-450 [facility] Comment on above: Order Comment: 414-2 Performed By: #### L 501.7900, L503.0105, L500.4050, L100.0100, L506.1000, L501.9985, L501.5200 ####[facility] [address] [place], [address] RBC (Bld) [#/Vol] 4.75 10*6/uL Normal 4.6-6.2 [facility] Comment on above: Order Comment: 414-2 Performed By: #### L 501.7900, L503.0105, L500.4050, L100.0100, L506.1000, L501.9985, L501.5200 ####[facility] [address] [place], [address] RDW SD 45.4 fl High 35.1-43.9 [facility] Comment on above: Order Comment: 414-2 Performed By: #### L 501.7900, L503.0105, L500.4050, L100.0100, L506.1000, L501.9985, L501.5200 ####[facility] [address] [place], [address] WBC (Bld) [#/Vol] 5.1 10*3/uL Normal 4.4-11.0 [facility] Comment on above: Order Comment: 414-2 Performed By: #### L 501.7900, L503.0105, L500.4050, L100.0100, L506.1000, L501.9985, L501.5200 ####[facility] [address] [facility] [place], [place], [id number] Carbamazepine (Tegretol)on 0 07-15-2024 CARBAMAZEPINE 7.0 ug/mL Normal 4.0-12.0 [facility] Comment on above: Order Comment: 414-2 Performed By: #### L 501.7900, L503.0105, L500.4050, L100.0100, L506.1000, L501.9985, L501.5200 ####[facility] [address] [place], [place], [address] Carbon dioxide measurementOr dered By: Carla Prather on 07-15-2024 CO2 [Moles/Vol] 24.0 mmol/L Normal 21.0-32.0 [facility] Comment on above: Order Comment: 414-2 Performed By: #### L 501.7900, L503.0105, L500.4050, L100.0100, L506.1000, L501.9985, L501.5200 ####[facility] [address] [facility]. [place], [place], [id number] Chloride measurementOrdered By: Carla Prather on 07-15-2024 Chloride [Moles/Vol] 107 mmol/L Normal 98-107 [facility] Comment on above: Order Comment: 414-2 Performed By: #### L 501.7900, L503.0105, L500.4050, L100.0100, L506.1000, L501.9985, L501.5200 ####[facility] [address] [place], [address] Comprehensive Metabolic Prof ilon 07-15-2024 ALK P 70 U/L Normal 45-117 [facility] Comment on above: Order Comment: 414-2 Performed By: #### L 501.7900, L503.0105, L500.4050, L100.0100, L506.1000, L501.9985, L501.5200 ####[facility] [address] [place], [address] BUN/CRE 25.4 RATIO High 10-20 [facility] Comment on above: Order Comment: 414-2 Performed By: #### L 501.7900, L503.0105, L500.4050, L100.0100, L506.1000, L501.9985, L501.5200 ####[facility] [address] [place], [address] CA,Total 10.1 mg/dL Normal 8.5-10.1 [facility] Comment on above: Order Comment: 414-2 Performed By: #### L 501.7900, L503.0105, L500.4050, L100.0100, L506.1000, L501.9985, L501.5200 ####[facility] [address] [place], [address] EST GFR - AA 77 mL/min Normal >60 [facility] Comment on above: Order Comment: 414-2 Result Comment: Afri can Indian GFR Calc Performed By: #### L 501.7900, L503.0105, L500.4050, L100.0100, L506.1000, L501.9985, L501.5200 ####[facility] [address] [place], [place], [id number] GAP 7 Normal 5-15 [facility] Comment on above: Order Comment: 414-2 Performed By: #### L 501.7900, L503.0105, L500.4050, L100.0100, L506.1000, L501.9985, L501.5200 ####[facility] [address] [place], [place], [address] GFR/1.73 sq M.predicted among non-blacks MDRD (S/P/Bld) [Vol rate/Area] 64 mL/min/{1.73_m2} Normal >60 [facility] Comment on above: Order Comment: 414-2 Result Comment: Non- GFR Calc Performed By: #### L 501.7900, L503.0105, L500.4050, L100.0100, L506.1000, L501.9985, L501.5200 ####[facility] [address] [place], [address] T PROT 8.0 g/dL Normal 6.4-8.2 [facility] Comment on above: Order Comment: 414-2 Performed By: #### L 501.7900, L503.0105, L500.4050, L100.0100, L506.1000, L501.9985, L501.5200 ####[facility] [address] [place], [place], [id number] Comprehensive Metabolic Prof ilOrdered By: Carla Prather on 07-15-2024 AST [Catalytic activity/Vol] 23 U/L Normal 15-37 [facility] Comment on above: Order Comment: 414-2 Performed By: #### L 501.7900, L503.0105, L500.4050, L100.0100, L506.1000, L501.9985, L501.5200 ####[facility] [address] [place], [address] Eosinophil percentageOrdered By: Carla Prather on 07-15-2024 Eosinophils/100 WBC (Bld) 9.4 % High 0-5 [facility] Erythrocyte distribution wid th ratioOrdered By: Carla Prather on 07-15-2024 Erythrocyte distribution width (RBC) [Ratio] 12.8 % 11.6-14.6 [facility] Erythrocyte distribution wid th standard deviationOrdered By: Carlaangeline Prather on 07-15-2024 Erythrocyte distribution width (RBC) [Entitic vol] 45.4 fL High 35.1-43.9 [facility] Estimated glomerular filtrat ion rate (GFR) AmericanOrdered By: Carlaangeline Prather on 07-15-2024 Estimated GFR (MDRD) Amer 77 mL/min >60 [facility] Comment on above: GFR Calc Glomerular filtration rate ( GFR) estimationOrdered By: Carla Prather on 07-15-2024 Estimated GFR (MDRD) Non-Af Amer 64 mL/min >60 [facility] Comment on above: Non- GFR Calc Glucose measurementOrdered B y: Carla Prather on 07-15-2024 Glucose [Mass/Vol] 103 mg/dL Normal 74-106 [facility] Comment on above: Fasting Glucose resu lt from 100 to 125 mg/dL suggests IMPAIRED HOMEOSTASIS per A.D.A. criteria. Order Comment: 414-2 Result Comment: Fast ing Glucose result from 100 to 125 mg/dLsuggests IMPAIRED HOMEOSTASIS per A.D.A. criteria. Performed By: #### L 501.7900, L503.0105, L500.4050, L100.0100, L506.1000, L501.9985, L501.5200 ####[facility] [address] [place], [place], [address] Hematocrit Auto (Bld) [Volum e fraction]Ordered By: Carla Prather on 07-15-2024 Hematocrit (Bld) [Volume fraction] 45.8 % 40-54 [facility] Hemoglobin A1con 07-15-2024 HbA1c (Bld) [Mass fraction] 5.6 % Normal 3.8-5.6 [facility] Comment on above: Order Comment: 414-2 Result Comment: Norm al < 5.7 % Prediabetic 5.7 - 6.4 % Diabetic >or= 6.5 % Please note range changes. Performed By: #### L 501.7900, L503.0105, L500.4050, L100.0100, L506.1000, L501.9985, L501.5200 ####[facility] [address] [place], [address] Hemoglobin A1c percentageOrd ered By: Carla Prather on 07-15-2024 HbA1c (Bld) [Mass fraction] 5.6 % 3.8-5.6 [facility] Comment on above: Normal < 5.7 % Predi abetic 5.7 - 6.4 % Diabetic >or= 6.5 % Please note range changes. Hemoglobin measurementOrdere d By: Carla Prather on 07-15-2024 Hemoglobin (Bld) [Mass/Vol] 14.8 g/dL 13.0-16.5 [facility] Immature granulocytes/100 WB C Auto (Bld)Ordered By: Carla Prather on 07-15-2024 Immature granulocytes/100 WBC (Bld) 0.400 % 0.0-0.9 [facility] Comment on above: IG% - Immature Granu locytes (promyelocytes, myelocytes and metamyelocytes) > 1% indicates that a LEFT SHIFT is Present. Lymphocytes Auto (Unsp spec) [#/Vol]Ordered By: Carla Prather on 07-15-2024 Lymphocytes (Bld) [#/Vol] 1.38 10*3/uL 0.83-4.51 [facility] Lymphocytes/100 WBC Auto (Un sp spec)Ordered By: Carla Prather on 07-15-2024 Lymphocytes/100 WBC (Bld) 26.9 % 19-41 [facility] MCV (mean corpuscular volume ) determinationOrdered By: Carla Prather on 07-15-2024 MCV (RBC) [Entitic vol] 96.4 fL High 80-94 [facility] Magnesium measurementOrdered By: Carla Prather on 07-15-2024 Magnesium [Mass/Vol] 2.1 mg/dL Normal 1.6-2.6 [facility] Comment on above: Order Comment: 414-2 Performed By: #### L 501.7900, L503.0105, L500.4050, L100.0100, L506.1000, L501.9985, L501.5200 ####[facility] [address] [place], [address] Mean corpuscular hemoglobin (MCH) determinationOrdered By: Carla Prather on 07-15-2024 MCH (RBC) [Entitic mass] 31.2 pg 27.0-32.0 [facility] Mean corpuscular hemoglobin concentration (MCHC) determinationOrdered By: Carla Prather on 07-15-2024 MCHC (RBC) [Mass/Vol] 32.3 g/dL 32-36 [facility] Mean platelet volume determi nationOrdered By: Carla Prather on 07-15-2024 Platelet mean volume (Bld) [Entitic vol] 9.6 fL 6.2-12.0 [facility] Monocyte percentageOrdered B y: Carla Prather on 07-15-2024 Monocytes/100 WBC (Bld) 8.8 % 0-10 [facility] Neutrophil percentageOrdered By: Carla Prather on 07-15-2024 Neutrophils/100 WBC (Bld) 53.1 % 47-70 [facility] Nucleated red blood cell per centageOrdered By: Carla Prather on 07-15-2024 Nucleated RBC/100 WBC (Bld) [Ratio] 0 % 0-5 [facility] Platelet countOrdered By: Wilfredo Prather on 07-15-2024 Platelets (Bld) [#/Vol] 295 10*3/uL 150-450 [facility] Potassium measurementOrdered By: Carla Prather on 07-15-2024 Potassium [Moles/Vol] 3.8 mmol/L Normal 3.5-5.1 [facility] Comment on above: Order Comment: 414-2 Performed By: #### L 501.7900, L503.0105, L500.4050, L100.0100, L506.1000, L501.9985, L501.5200 ####[facility] [address] [place], [place], [id number] RBC Auto (Bld) [#/Vol]Ordere d By: Carla Prather on 07-15-2024 RBC (Bld) [#/Vol] 4.75 10*6/uL 4.6-6.2 [facility] Serum anion gap measurementO rdered By: Carla Prather on 07-15-2024 Anion gap [Moles/Vol] 7 mmol/L 5-15 [facility] Serum globulin measurementOr dered By: Carla Prather on 07-15-2024 Globulin (S) [Mass/Vol] 4.1 g/dL Normal 2.2-4.2 [facility] Comment on above: Order Comment: 414-2 Performed By: #### L 501.7900, L503.0105, L500.4050, L100.0100, L506.1000, L501.9985, L501.5200 ####[facility] [address] [place], [place], [id number] Serum or plasma alanine saul otransferase (ALT) measurementOrdered By: Carla Prather on 07-15-2024 ALT [Catalytic activity/Vol] 37 U/L Normal 16-61 [facility] Comment on above: Order Comment: 414-2 Performed By: #### L 501.7900, L503.0105, L500.4050, L100.0100, L506.1000, L501.9985, L501.5200 ####[facility] [address] [place], [place], [id number] Serum or plasma albumin luis urement (mass/volume)Ordered By: Carla Prather on 07-15-2024 Albumin [Mass/Vol] 3.9 g/dL Normal 3.2-5.0 [facility] Comment on above: Order Comment: 414-2 Performed By: #### L 501.7900, L503.0105, L500.4050, L100.0100, L506.1000, L501.9985, L501.5200 ####[facility] [address] [place], [place], [address] Serum or plasma alkaline kathleen sphatase measurementOrdered By: Carla Prather on 07-15-2024 ALP [Catalytic activity/Vol] 70 U/L 45-117 [facility] Serum or plasma calcium luis urement (mass/volume)Ordered By: Carlaangeline Prather on 07-15-2024 Calcium [Mass/Vol] 10.1 mg/dL 8.5-10.1 [facility] Serum or plasma creatinine m easurement (mass/volume)Ordered By: Carlaangeline Prather on 07-15-2024 Creatinine [Mass/Vol] 1.18 mg/dL Normal 0.70-1.30 [facility] Comment on above: The validity of the calculated GFR & GFRAA in patients over 70 years has not been determined. Clinical correlation is essential. Order Comment: 414-2 Result Comment: The validity of the calculated GFR GFRAA in patients over70 years has not been determined. Clinical correlation isessential. Performed By: #### L 501.7900, L503.0105, L500.4050, L100.0100, L506.1000, L501.9985, L501.5200 ####[facility] [address] [place], [address] Serum or plasma urea nitroge n measurement (mass/volume)Ordered By: Carla Prather on 07-15-2024 Urea nitrogen [Mass/Vol] 30 mg/dL High 7-18 [facility] Comment on above: Order Comment: 414-2 Performed By: #### L 501.7900, L503.0105, L500.4050, L100.0100, L506.1000, L501.9985, L501.5200 ####[facility] [address] [place], [place], [address] Sodium levelOrdered By: Luca Prather on 07-15-2024 Sodium [Moles/Vol] 138 mmol/L Normal 136-145 [facility] Comment on above: Order Comment: 414-2 Performed By: #### L 501.7900, L503.0105, L500.4050, L100.0100, L506.1000, L501.9985, L501.5200 ####[facility] [facility] [address] [place], [place], [id number] Total proteinOrdered By: Ming Prather on 07-15-2024 Protein [Mass/Vol] 8.0 g/dL 6.4-8.2 [facility] Vitamin B12on 07-15-2024 Cobalamin (Vitamin B12) [Mass/Vol] 692 pg/mL Normal 211-911 [facility] Comment on above: Order Comment: 414-2 Performed By: #### L 501.7900, L503.0105, L500.4050, L100.0100, L506.1000, L501.9985, L501.5200 ####[facility] [address] [place], [place], [id number] Vitamin B12 measurementOrder ed By: Carla Prather on 07-15-2024 Cobalamin (Vitamin B12) [Mass/Vol] 692 pg/mL 211-911 [facility] Vitamin D,25 Hydroxyon 07-15 Vitamin D 25-OH 36.0 ng/mL Normal [facility] Comment on above: Order Comment: 414-2 Result Comment: Teri min D 25(OH) Status Range Deficiency <20 ng/mL (50nmol/L) Insufficiency 20 - 30 ng/mL (50 - 75 nmol/L) Sufficiency 30 - 100 ng/mL (75 - 250 nmol/L) Toxicity >100 ng/mL (>250 nmol/L) Performed By: #### L 501.7900, L503.0105, L500.4050, L100.0100, L506.1000, L501.9985, L501.5200 ####[facility] [address] [place], [address] White blood cell (WBC) count Ordered By: Carla Prather on 07-15-2024 WBC (Bld) [#/Vol] 5.1 10*3/uL 4.4-11.0 [facility] carBAMazepine [Mass/Vol]Orde red By: Carla Prather on 07-15-2024 Carbamazepine (Tegretol) Level 7.0 ug/mL 4.0-12.0 [facility] Basic Metabolic Profile (BMP )on 04-15-2024 BUN Normal 7-18 [facility] Comment on above: Result Comment: Canc elled via OM: Order cancelled - Patient discharged Performed By: #### L 100.0100, L500.2500 ####[facility] [address] [place], [address] BUN/CRE Normal 10-20 [facility] Comment on above: Result Comment: Canc elled via OM: Order cancelled - Patient discharged Performed By: #### L 100.0100, L500.2500 ####[facility] [address] [place], [address] CA,Total Normal 8.5-10.1 [facility] Comment on above: Result Comment: Canc elled via OM: Order cancelled - Patient discharged Performed By: #### L 100.0100, L500.2500 ####[facility] [address] [place], [address] CL Normal 98-107 [facility] Comment on above: Result Comment: Canc elled via OM: Order cancelled - Patient discharged Performed By: #### L 100.0100, L500.2500 ####[facility] [address] [place], [address] CO2 Normal 21.0-32.0 [facility] Comment on above: Result Comment: Canc elled via OM: Order cancelled - Patient discharged Performed By: #### L 100.0100, L500.2500 ####[facility] [address] [place], [address] CREAT,SERUM Normal 0.70-1.30 [facility] Comment on above: Result Comment: Canc elled via OM: Order cancelled - Patient discharged Performed By: #### L 100.0100, L500.2500 ####[facility] [address] [place], [address] EST GFR Normal >60 [facility] Comment on above: Result Comment: Canc elled via OM: Order cancelled - Patient discharged Performed By: #### L 100.0100, L500.2500 ####[facility] [address] [place], [address] EST GFR - AA Normal >60 [facility] Comment on above: Result Comment: Canc elled via OM: Order cancelled - Patient discharged Performed By: #### L 100.0100, L500.2500 ####[facility] [address] [place], [address] GAP Normal 5-15 [facility] Comment on above: Result Comment: Canc elled via OM: Order cancelled - Patient discharged Performed By: #### L 100.0100, L500.2500 ####[facility] [address] [place], [address] GLU Normal 74-106 [facility] Comment on above: Result Comment: Canc elled via OM: Order cancelled - Patient discharged Performed By: #### L 100.0100, L500.2500 ####[facility] [address] [place], [address] Potassium Normal 3.5-5.1 [facility] Comment on above: Result Comment: Canc elled via OM: Order cancelled - Patient discharged Performed By: #### L 100.0100, L500.2500 ####[facility] [address] [place], [address] Basic Metabolic Profile (BMP) Normal 136-145 [facility] Comment on above: Result Comment: Canc elled via OM: Order cancelled - Patient discharged Performed By: #### L 100.0100, L500.2500 ####[facility] [address] [place], [address] CBC W/Diff, Automatedon 10-2 Absolute Neut Normal 2.0-7.7 [facility] Comment on above: Result Comment: Canc elled via OM: Order cancelled - Patient discharged Performed By: #### L 100.0100, L500.2500 ####[facility] [address] [place], [address] HCT Normal 40-54 [facility] Comment on above: Result Comment: Canc elled via OM: Order cancelled - Patient discharged Performed By: #### L 100.0100, L500.2500 ####[facility] [address] [place], [address] HGB Normal 13.0-16.5 [facility] Comment on above: Result Comment: Canc elled via OM: Order cancelled - Patient discharged Performed By: #### L 100.0100, L500.2500 ####[facility] [address] [place], [address] MCH Normal 27.0-32.0 [facility] Comment on above: Result Comment: Canc elled via OM: Order cancelled - Patient discharged Performed By: #### L 100.0100, L500.2500 ####[facility] [address] [place], [address] MCHC Normal 32-36 [facility] Comment on above: Result Comment: Canc elled via OM: Order cancelled - Patient discharged Performed By: #### L 100.0100, L500.2500 ####[facility] [address] [place], [address] MCV Normal 80-94 [facility] Comment on above: Result Comment: Canc elled via OM: Order cancelled - Patient discharged Performed By: #### L 100.0100, L500.2500 ####[facility] [address] [place], [address] NEUT% Normal 47-70 [facility] Comment on above: Result Comment: Canc elled via OM: Order cancelled - Patient discharged Performed By: #### L 100.0100, L500.2500 ####[facility] [address] [place], [address] PLT Normal 150-450 [facility] Comment on above: Result Comment: Canc elled via OM: Order cancelled - Patient discharged Performed By: #### L 100.0100, L500.2500 ####[facility] [address] [place], [address] RBC Normal 4.6-6.2 [facility] Comment on above: Result Comment: Canc elled via OM: Order cancelled - Patient discharged Performed By: #### L 100.0100, L500.2500 ####[facility] [address] [place], [address] RDW CV Normal 11.6-14.6 [facility] Comment on above: Result Comment: Canc elled via OM: Order cancelled - Patient discharged Performed By: #### L 100.0100, L500.2500 ####[facility] [address] [place], [address] RDW SD Normal 35.1-43.9 [facility] Comment on above: Result Comment: Canc elled via OM: Order cancelled - Patient discharged Performed By: #### L 100.0100, L500.2500 ####[facility] [address] [place], [address] WBC Normal 4.4-11.0 [facility] Comment on above: Result Comment: Canc elled via OM: Order cancelled - Patient discharged Performed By: #### L 100.0100, L500.2500 ####[facility] [address] [place], [address] Basic Metabolic Profile (BMP )on 04-14-2024 BUN Normal 7-18 [facility] Comment on above: Result Comment: Canc elled via OM: Order cancelled - Patient discharged Performed By: #### L 100.0100, L500.2500 ####[facility] [address] [place], [address] BUN/CRE Normal 10-20 [facility] Comment on above: Result Comment: Canc elled via OM: Order cancelled - Patient discharged Performed By: #### L 100.0100, L500.2500 ####[facility] [address] [place], [address] CA,Total Normal 8.5-10.1 [facility] Comment on above: Result Comment: Canc elled via OM: Order cancelled - Patient discharged Performed By: #### L 100.0100, L500.2500 ####[facility] [address] [place], [address] CL Normal 98-107 [facility] Comment on above: Result Comment: Canc elled via OM: Order cancelled - Patient discharged Performed By: #### L 100.0100, L500.2500 ####[facility] [address] [place], [address] CO2 Normal 21.0-32.0 [facility] Comment on above: Result Comment: Canc elled via OM: Order cancelled - Patient discharged Performed By: #### L 100.0100, L500.2500 ####[facility] [address] [place], [address] CREAT,SERUM Normal 0.70-1.30 [facility] Comment on above: Result Comment: Canc elled via OM: Order cancelled - Patient discharged Performed By: #### L 100.0100, L500.2500 ####[facility] [address] [place], [address] EST GFR Normal >60 [facility] Comment on above: Result Comment: Canc elled via OM: Order cancelled - Patient discharged Performed By: #### L 100.0100, L500.2500 ####[facility] [address] [place], [address] EST GFR - AA Normal >60 [facility] Comment on above: Result Comment: Canc elled via OM: Order cancelled - Patient discharged Performed By: #### L 100.0100, L500.2500 ####[facility] [address] [place], [address] GAP Normal 5-15 [facility] Comment on above: Result Comment: Canc elled via OM: Order cancelled - Patient discharged Performed By: #### L 100.0100, L500.2500 ####[facility] [address] [place], [address] GLU Normal 74-106 [facility] Comment on above: Result Comment: Canc elled via OM: Order cancelled - Patient discharged Performed By: #### L 100.0100, L500.2500 ####[facility] [address] [place], [address] Potassium Normal 3.5-5.1 [facility] Comment on above: Result Comment: Canc elled via OM: Order cancelled - Patient discharged Performed By: #### L 100.0100, L500.2500 ####[facility] [address] [place], [address] Basic Metabolic Profile (BMP) Normal 136-145 [facility] Comment on above: Result Comment: Canc elled via OM: Order cancelled - Patient discharged Performed By: #### L 100.0100, L500.2500 ####[facility] [address] [place], [address] CBC W/Diff, Automatedon 10-2 Absolute Neut Normal 2.0-7.7 [facility] Comment on above: Result Comment: Canc elled via OM: Order cancelled - Patient discharged Performed By: #### L 100.0100, L500.2500 ####[facility] [address] [place], [address] HCT Normal 40-54 [facility] Comment on above: Result Comment: Canc elled via OM: Order cancelled - Patient discharged Performed By: #### L 100.0100, L500.2500 ####[facility] [address] [place], [address] HGB Normal 13.0-16.5 [facility] Comment on above: Result Comment: Canc elled via OM: Order cancelled - Patient discharged Performed By: #### L 100.0100, L500.2500 ####[facility] [address] [place], [address] MCH Normal 27.0-32.0 [facility] Comment on above: Result Comment: Canc elled via OM: Order cancelled - Patient discharged Performed By: #### L 100.0100, L500.2500 ####[facility] [address] [place], [address] MCHC Normal 32-36 [facility] Comment on above: Result Comment: Canc elled via OM: Order cancelled - Patient discharged Performed By: #### L 100.0100, L500.2500 ####[facility] [address] [place], [address] MCV Normal 80-94 [facility] Comment on above: Result Comment: Canc elled via OM: Order cancelled - Patient discharged Performed By: #### L 100.0100, L500.2500 ####[facility] [address] [place], [address] NEUT% Normal 47-70 [facility] Comment on above: Result Comment: Canc elled via OM: Order cancelled - Patient discharged Performed By: #### L 100.0100, L500.2500 ####[facility] [address] [place], [address] PLT Normal 150-450 [facility] Comment on above: Result Comment: Canc elled via OM: Order cancelled - Patient discharged Performed By: #### L 100.0100, L500.2500 ####[facility] [address] [place], [address] RBC Normal 4.6-6.2 [facility] Comment on above: Result Comment: Canc elled via OM: Order cancelled - Patient discharged Performed By: #### L 100.0100, L500.2500 ####[facility] [address] [place], [address] RDW CV Normal 11.6-14.6 [facility] Comment on above: Result Comment: Canc elled via OM: Order cancelled - Patient discharged Performed By: #### L 100.0100, L500.2500 ####[facility] [address] [place], [address] RDW SD Normal 35.1-43.9 [facility] Comment on above: Result Comment: Canc elled via OM: Order cancelled - Patient discharged Performed By: #### L 100.0100, L500.2500 ####[facility] [address] [place], [address] WBC Normal 4.4-11.0 [facility] Comment on above: Result Comment: Canc elled via OM: Order cancelled - Patient discharged Performed By: #### L 100.0100, L500.2500 ####[facility] [address] [place], [address] Basic Metabolic Profile (BMP )on 04-13-2024 BUN Normal 7-18 [facility] Comment on above: Result Comment: Canc elled via OM: Order cancelled - Patient discharged Performed By: #### L 100.0100, L500.2500 ####[facility] [address] [place], [address] BUN/CRE Normal 10-20 [facility] Comment on above: Result Comment: Canc elled via OM: Order cancelled - Patient discharged Performed By: #### L 100.0100, L500.2500 ####[facility] [address] [place], [address] CA,Total Normal 8.5-10.1 [facility] Comment on above: Result Comment: Canc elled via OM: Order cancelled - Patient discharged Performed By: #### L 100.0100, L500.2500 ####[facility] [address] [place], [address] CL Normal 98-107 [facility] Comment on above: Result Comment: Canc elled via OM: Order cancelled - Patient discharged Performed By: #### L 100.0100, L500.2500 ####[facility] [address] [place], [address] CO2 Normal 21.0-32.0 [facility] Comment on above: Result Comment: Canc elled via OM: Order cancelled - Patient discharged Performed By: #### L 100.0100, L500.2500 ####[facility] [address] [place], [address] CREAT,SERUM Normal 0.70-1.30 [facility] Comment on above: Result Comment: Canc elled via OM: Order cancelled - Patient discharged Performed By: #### L 100.0100, L500.2500 ####[facility] [address] [place], [address] EST GFR Normal >60 [facility] Comment on above: Result Comment: Canc elled via OM: Order cancelled - Patient discharged Performed By: #### L 100.0100, L500.2500 ####[facility] [address] [place], [address] EST GFR - AA Normal >60 [facility] Comment on above: Result Comment: Canc elled via OM: Order cancelled - Patient discharged Performed By: #### L 100.0100, L500.2500 ####[facility] [address] [place], [address] GAP Normal 5-15 [facility] Comment on above: Result Comment: Canc elled via OM: Order cancelled - Patient discharged Performed By: #### L 100.0100, L500.2500 ####[facility] [address] [place], [address] GLU Normal 74-106 [facility] Comment on above: Result Comment: Canc elled via OM: Order cancelled - Patient discharged Performed By: #### L 100.0100, L500.2500 ####[facility] [address] [place], [address] Potassium Normal 3.5-5.1 [facility] Comment on above: Result Comment: Canc elled via OM: Order cancelled - Patient discharged Performed By: #### L 100.0100, L500.2500 ####[facility] [address] [place], [address] Basic Metabolic Profile (BMP) Normal 136-145 [facility] Comment on above: Result Comment: Canc elled via OM: Order cancelled - Patient discharged Performed By: #### L 100.0100, L500.2500 ####[facility] [address] [place], [address] CBC W/Diff, Automatedon 10-2 Absolute Neut Normal 2.0-7.7 [facility] Comment on above: Result Comment: Canc elled via OM: Order cancelled - Patient discharged Performed By: #### L 100.0100, L500.2500 ####[facility] [address] [place], [address] HCT Normal 40-54 [facility] Comment on above: Result Comment: Canc elled via OM: Order cancelled - Patient discharged Performed By: #### L 100.0100, L500.2500 ####[facility] [address] [place], [address] HGB Normal 13.0-16.5 [facility] Comment on above: Result Comment: Canc elled via OM: Order cancelled - Patient discharged Performed By: #### L 100.0100, L500.2500 ####[facility] [address] [place], [address] MCH Normal 27.0-32.0 [facility] Comment on above: Result Comment: Canc elled via OM: Order cancelled - Patient discharged Performed By: #### L 100.0100, L500.2500 ####[facility] [address] [place], [address] MCHC Normal 32-36 [facility] Comment on above: Result Comment: Canc elled via OM: Order cancelled - Patient discharged Performed By: #### L 100.0100, L500.2500 ####[facility] [address] [place], [address] MCV Normal 80-94 [facility] Comment on above: Result Comment: Canc elled via OM: Order cancelled - Patient discharged Performed By: #### L 100.0100, L500.2500 ####[facility] [address] [place], [address] NEUT% Normal 47-70 [facility] Comment on above: Result Comment: Canc elled via OM: Order cancelled - Patient discharged Performed By: #### L 100.0100, L500.2500 ####[facility] [address] [place], [address] PLT Normal 150-450 [facility] Comment on above: Result Comment: Canc elled via OM: Order cancelled - Patient discharged Performed By: #### L 100.0100, L500.2500 ####[facility] [address] [place], [address] RBC Normal 4.6-6.2 [facility] Comment on above: Result Comment: Canc elled via OM: Order cancelled - Patient discharged Performed By: #### L 100.0100, L500.2500 ####[facility] [address] [place], [address] RDW CV Normal 11.6-14.6 [facility] Comment on above: Result Comment: Canc elled via OM: Order cancelled - Patient discharged Performed By: #### L 100.0100, L500.2500 ####[facility] [address] [place], [address] RDW SD Normal 35.1-43.9 [facility] Comment on above: Result Comment: Canc elled via OM: Order cancelled - Patient discharged Performed By: #### L 100.0100, L500.2500 ####[facility] [address] [place], [address] WBC Normal 4.4-11.0 [facility] Comment on above: Result Comment: Canc elled via OM: Order cancelled - Patient discharged Performed By: #### L 100.0100, L500.2500 ####[facility] [address] [place], [address] Basic Metabolic Profile (BMP )on 04-12-2024 BUN/CRE 21.1 RATIO High - [facility] Comment on above: Order Comment: 306-2 Performed By: #### L 100.0500, L500.2500 ####[facility] [address] [place], [address] CA,Total 10.1 mg/dL Normal 8.5-10.1 [facility] Comment on above: Order Comment: 306-2 Performed By: #### L 100.0500, L500.2500 ####[facility] [address] [place], [address] Chloride [Moles/Vol] 106 mmol/L Normal 98-107 [facility] Comment on above: Order Comment: 306-2 Performed By: #### L 100.0500, L500.2500 ####[facility] [address] [place], [address] CO2 [Moles/Vol] 27.0 mmol/L Normal 21.0-32.0 [facility] Comment on above: Order Comment: 306-2 Performed By: #### L 100.0500, L500.2500 ####[facility] [address] [place], [address] Creatinine [Mass/Vol] 1.28 mg/dL Normal 0.70-1.30 [facility] Comment on above: Order Comment: 306-2 Result Comment: The validity of the calculated GFR GFRAA in patients over70 years has not been determined. Clinical correlation isessential. Performed By: #### L 100.0500, L500.2500 ####[facility] [address] [place], [address] EST GFR - AA 71 mL/min Normal >60 [facility] Comment on above: Order Comment: 306-2 Result Comment: Afri can Indian GFR Calc Performed By: #### L 100.0500, L500.2500 ####[facility] [address] [place], [address] GAP 7 Normal 5-15 [facility] Comment on above: Order Comment: 306-2 Performed By: #### L 100.0500, L500.2500 ####[facility] [address] [place], [address] GFR/1.73 sq M.predicted among non-blacks MDRD (S/P/Bld) [Vol rate/Area] 58 mL/min/{1.73_m2} Low >60 [facility] Comment on above: Order Comment: 306-2 Result Comment: Non- GFR Calc Performed By: #### L 100.0500, L500.2500 ####[facility] [address] [place], [address] Glucose [Mass/Vol] 94 mg/dL Normal 74-106 [facility] Comment on above: Order Comment: 306-2 Performed By: #### L 100.0500, L500.2500 ####[facility] [address] [place], [address] Potassium [Moles/Vol] 3.6 mmol/L Normal 3.5-5.1 [facility] Comment on above: Order Comment: 306-2 Performed By: #### L 100.0500, L500.2500 ####[facility] [address] [place], [address] Sodium [Moles/Vol] 140 mmol/L Normal 136-145 [facility] Comment on above: Order Comment: 306-2 Performed By: #### L 100.0500, L500.2500 ####[facility] [address] [place], [address] Urea nitrogen [Mass/Vol] 27 mg/dL High 7-18 [facility] Comment on above: Order Comment: 306-2 Performed By: #### L 100.0500, L500.2500 ####[facility] [address] [place], [address] BUN Normal 7-18 [facility] Comment on above: Result Comment: Canc elled via OM: Order cancelled - Patient discharged Performed By: #### L 500.2500, L100.0100 ####[facility] [address] [place], [address] BUN/CRE Normal 10-20 [facility] Comment on above: Result Comment: Canc elled via OM: Order cancelled - Patient discharged Performed By: #### L 500.2500, L100.0100 ####[facility] [address] [place], [address] CA,Total Normal 8.5-10.1 [facility] Comment on above: Result Comment: Canc elled via OM: Order cancelled - Patient discharged Performed By: #### L 500.2500, L100.0100 ####[facility] [address] [place], [address] CL Normal 98-107 [facility] Comment on above: Result Comment: Canc elled via OM: Order cancelled - Patient discharged Performed By: #### L 500.2500, L100.0100 ####[facility] [address] [place], [address] CO2 Normal 21.0-32.0 [facility] Comment on above: Result Comment: Canc elled via OM: Order cancelled - Patient discharged Performed By: #### L 500.2500, L100.0100 ####[facility] [address] [place], [address] CREAT,SERUM Normal 0.70-1.30 [facility] Comment on above: Result Comment: Canc elled via OM: Order cancelled - Patient discharged Performed By: #### L 500.2500, L100.0100 ####[facility] [address] [place], [address] EST GFR Normal >60 [facility] Comment on above: Result Comment: Canc elled via OM: Order cancelled - Patient discharged Performed By: #### L 500.2500, L100.0100 ####[facility] [address] [place], [address] EST GFR - AA Normal >60 [facility] Comment on above: Result Comment: Canc elled via OM: Order cancelled - Patient discharged Performed By: #### L 500.2500, L100.0100 ####[facility] [address] [place], [address] GAP Normal 5-15 [facility] Comment on above: Result Comment: Canc elled via OM: Order cancelled - Patient discharged Performed By: #### L 500.2500, L100.0100 ####[facility] [address] [place], [address] GLU Normal 74-106 [facility] Comment on above: Result Comment: Canc elled via OM: Order cancelled - Patient discharged Performed By: #### L 500.2500, L100.0100 ####[facility] [address] [place], [address] Potassium Normal 3.5-5.1 [facility] Comment on above: Result Comment: Canc elled via OM: Order cancelled - Patient discharged Performed By: #### L 500.2500, L100.0100 ####[facility] [address] [place], [address] Basic Metabolic Profile (BMP) Normal 136-145 [facility] Comment on above: Result Comment: Canc elled via OM: Order cancelled - Patient discharged Performed By: #### L 500.2500, L100.0100 ####[facility] [address] [place], [address] CBC W/Diff, Automatedon 10-2 Absolute Neut Normal 2.0-7.7 [facility] Comment on above: Result Comment: Canc elled via OM: Order cancelled - Patient discharged Performed By: #### L 500.2500, L100.0100 ####[facility] [address] [place], [address] HCT Normal 40-54 [facility] Comment on above: Result Comment: Canc elled via OM: Order cancelled - Patient discharged Performed By: #### L 500.2500, L100.0100 ####[facility] [address] [place], [address] HGB Normal 13.0-16.5 [facility] Comment on above: Result Comment: Canc elled via OM: Order cancelled - Patient discharged Performed By: #### L 500.2500, L100.0100 ####[facility] [address] [place], [address] MCH Normal 27.0-32.0 [facility] Comment on above: Result Comment: Canc elled via OM: Order cancelled - Patient discharged Performed By: #### L 500.2500, L100.0100 ####[facility] [address] [place], [address] MCHC Normal 32-36 [facility] Comment on above: Result Comment: Canc elled via OM: Order cancelled - Patient discharged Performed By: #### L 500.2500, L100.0100 ####[facility] [address] [place], [address] MCV Normal 80-94 [facility] Comment on above: Result Comment: Canc elled via OM: Order cancelled - Patient discharged Performed By: #### L 500.2500, L100.0100 ####[facility] [address] [place], [address] NEUT% Normal 47-70 [facility] Comment on above: Result Comment: Canc elled via OM: Order cancelled - Patient discharged Performed By: #### L 500.2500, L100.0100 ####[facility] [address] [place], [address] PLT Normal 150-450 [facility] Comment on above: Result Comment: Canc elled via OM: Order cancelled - Patient discharged Performed By: #### L 500.2500, L100.0100 ####[facility] [address] [place], [address] RBC Normal 4.6-6.2 [facility] Comment on above: Result Comment: Canc elled via OM: Order cancelled - Patient discharged Performed By: #### L 500.2500, L100.0100 ####[facility] [address] [place], [address] RDW CV Normal 11.6-14.6 [facility] Comment on above: Result Comment: Canc elled via OM: Order cancelled - Patient discharged Performed By: #### L 500.2500, L100.0100 ####[facility] [address] [place], [address] RDW SD Normal 35.1-43.9 [facility] Comment on above: Result Comment: Canc elled via OM: Order cancelled - Patient discharged Performed By: #### L 500.2500, L100.0100 ####[facility] [address] [place], [address] WBC Normal 4.4-11.0 [facility] Comment on above: Result Comment: Canc elled via OM: Order cancelled - Patient discharged Performed By: #### L 500.2500, L100.0100 ####[facility] [address] [place], [address] CBC-Complete Blood Cnt No Di ffon 04-12-2024 Erythrocyte distribution width (RBC) [Ratio] 13.3 % Normal 11.6-14.6 [facility] Comment on above: Order Comment: 306-2 Performed By: #### L 100.0500, L500.2500 ####[facility] [address] [place], [address] Hematocrit (Bld) [Volume fraction] 49.2 % Normal 40-54 [facility] Comment on above: Order Comment: 306-2 Performed By: #### L 100.0500, L500.2500 ####[facility] [address] [place], [address] Hemoglobin (Bld) [Mass/Vol] 16.4 g/dL Normal 13.0-16.5 [facility] Comment on above: Order Comment: 306-2 Performed By: #### L 100.0500, L500.2500 ####[facility] [address] [place], [address] MCH (RBC) [Entitic mass] 33.4 pg High 27.0-32.0 [facility] Comment on above: Order Comment: 306-2 Performed By: #### L 100.0500, L500.2500 ####[facility] [address] [place], [address] MCHC (RBC) [Mass/Vol] 33.3 g/dL Normal 32-36 [facility] Comment on above: Order Comment: 306-2 Performed By: #### L 100.0500, L500.2500 ####[facility] [address] [place], [address] MCV (RBC) [Entitic vol] 100.2 fL High 80-94 [facility] Comment on above: Order Comment: 306-2 Performed By: #### L 100.0500, L500.2500 ####[facility] [address] [place], [address] Platelet mean volume (Bld) [Entitic vol] 10.1 fL Normal 6.2-12.0 [facility] Comment on above: Order Comment: 306-2 Performed By: #### L 100.0500, L500.2500 ####[facility] [address] [place], [address] Platelets (Bld) [#/Vol] 305 10*3/uL Normal 150-450 [facility] Comment on above: Order Comment: 306-2 Performed By: #### L 100.0500, L500.2500 ####[facility] [address] [place], [address] RBC (Bld) [#/Vol] 4.91 10*6/uL Normal 4.6-6.2 [facility] Comment on above: Order Comment: 306-2 Performed By: #### L 100.0500, L500.2500 ####[facility] [address] [place], [address] RDW SD 49.8 fl High 35.1-43.9 [facility] Comment on above: Order Comment: 306-2 Performed By: #### L 100.0500, L500.2500 ####[facility] [address] [place], [address] WBC (Bld) [#/Vol] 7.4 10*3/uL Normal 4.4-11.0 [facility] Comment on above: Order Comment: 306-2 Performed By: #### L 100.0500, L500.2500 ####[facility] [address] [place], [address] Basic Metabolic Profile (BMP )on 04-11-2024 BUN Normal -18 [facility] Comment on above: Result Comment: Canc elled via OM: Order cancelled - Patient discharged Performed By: #### L 500.2500, L100.0100 ####[facility] [address] [place], [address] BUN/CRE Normal - [facility] Comment on above: Result Comment: Canc elled via OM: Order cancelled - Patient discharged Performed By: #### L 500.2500, L100.0100 ####[facility] [address] [place], [address] CA,Total Normal 8.5-10.1 [facility] Comment on above: Result Comment: Canc elled via OM: Order cancelled - Patient discharged Performed By: #### L 500.2500, L100.0100 ####[facility] [address] [place], [address] CL Normal 98-107 [facility] Comment on above: Result Comment: Canc elled via OM: Order cancelled - Patient discharged Performed By: #### L 500.2500, L100.0100 ####[facility] [address] [place], [address] CO2 Normal 21.0-32.0 [facility] Comment on above: Result Comment: Canc elled via OM: Order cancelled - Patient discharged Performed By: #### L 500.2500, L100.0100 ####[facility] [address] [place], [address] CREAT,SERUM Normal 0.70-1.30 [facility] Comment on above: Result Comment: Canc elled via OM: Order cancelled - Patient discharged Performed By: #### L 500.2500, L100.0100 ####[facility] [address] [place], [address] EST GFR Normal >60 [facility] Comment on above: Result Comment: Canc elled via OM: Order cancelled - Patient discharged Performed By: #### L 500.2500, L100.0100 ####[facility] [address] [place], [address] EST GFR - AA Normal >60 [facility] Comment on above: Result Comment: Canc elled via OM: Order cancelled - Patient discharged Performed By: #### L 500.2500, L100.0100 ####[facility] [address] [place], [address] GAP Normal 5-15 [facility] Comment on above: Result Comment: Canc elled via OM: Order cancelled - Patient discharged Performed By: #### L 500.2500, L100.0100 ####[facility] [address] [place], [address] GLU Normal 74-106 [facility] Comment on above: Result Comment: Canc elled via OM: Order cancelled - Patient discharged Performed By: #### L 500.2500, L100.0100 ####[facility] [address] [place], [address] Potassium Normal 3.5-5.1 [facility] Comment on above: Result Comment: Canc elled via OM: Order cancelled - Patient discharged Performed By: #### L 500.2500, L100.0100 ####[facility] [address] [place], [address] Basic Metabolic Profile (BMP) Normal 136-145 [facility] Comment on above: Result Comment: Canc elled via OM: Order cancelled - Patient discharged Performed By: #### L 500.2500, L100.0100 ####[facility] [address] [place], [address] CBC W/Diff, Automatedon 10-2 Absolute Neut Normal 2.0-7.7 [facility] Comment on above: Result Comment: Canc elled via OM: Order cancelled - Patient discharged Performed By: #### L 500.2500, L100.0100 ####[facility] [address] [place], [address] HCT Normal 40-54 [facility] Comment on above: Result Comment: Canc elled via OM: Order cancelled - Patient discharged Performed By: #### L 500.2500, L100.0100 ####[facility] [address] [place], [address] HGB Normal 13.0-16.5 [facility] Comment on above: Result Comment: Canc elled via OM: Order cancelled - Patient discharged Performed By: #### L 500.2500, L100.0100 ####[facility] [address] [place], [address] MCH Normal 27.0-32.0 [facility] Comment on above: Result Comment: Canc elled via OM: Order cancelled - Patient discharged Performed By: #### L 500.2500, L100.0100 ####[facility] [address] [place], [address] MCHC Normal 32-36 [facility] Comment on above: Result Comment: Canc elled via OM: Order cancelled - Patient discharged Performed By: #### L 500.2500, L100.0100 ####[facility] [address] [place], [address] MCV Normal 80-94 [facility] Comment on above: Result Comment: Canc elled via OM: Order cancelled - Patient discharged Performed By: #### L 500.2500, L100.0100 ####[facility] [address] [place], [address] NEUT% Normal 47-70 [facility] Comment on above: Result Comment: Canc elled via OM: Order cancelled - Patient discharged Performed By: #### L 500.2500, L100.0100 ####[facility] [address] [place], [address] PLT Normal 150-450 [facility] Comment on above: Result Comment: Canc elled via OM: Order cancelled - Patient discharged Performed By: #### L 500.2500, L100.0100 ####[facility] [address] [place], [address] RBC Normal 4.6-6.2 [facility] Comment on above: Result Comment: Canc elled via OM: Order cancelled - Patient discharged Performed By: #### L 500.2500, L100.0100 ####[facility] [facility] [address] [place], [address] RDW CV Normal 11.6-14.6 [facility] Comment on above: Result Comment: Canc elled via OM: Order cancelled - Patient discharged Performed By: #### L 500.2500, L100.0100 ####[facility] [address] [place], [address] RDW SD Normal 35.1-43.9 [facility] Comment on above: Result Comment: Canc elled via OM: Order cancelled - Patient discharged Performed By: #### L 500.2500, L100.0100 ####[facility] [address] [place], [address] WBC Normal 4.4-11.0 [facility] Comment on above: Result Comment: Canc elled via OM: Order cancelled - Patient discharged Performed By: #### L 500.2500, L100.0100 ####[facility] [address] [place], [address] Basic Metabolic Profile (BMP )on 04-10-2024 BUN/CRE 16.1 RATIO Normal -20 [facility] Comment on above: Performed By: #### L 500.2500, L100.0100 ####[facility] [address] [place], [address] CA,Total 9.4 mg/dL Normal 8.5-10.1 [facility] Comment on above: Performed By: #### L 500.2500, L100.0100 ####[facility] [address] [place], [address] Chloride [Moles/Vol] 106 mmol/L Normal 98-107 [facility] Comment on above: Performed By: #### L 500.2500, L100.0100 ####[facility] [address] [place], [address] CO2 [Moles/Vol] 25.0 mmol/L Normal 21.0-32.0 [facility] Comment on above: Performed By: #### L 500.2500, L100.0100 ####[facility] [address] [place], [address] Creatinine [Mass/Vol] 1.74 mg/dL High 0.70-1.30 [facility] Comment on above: Result Comment: The validity of the calculated GFR GFRAA in patients over70 years has not been determined. Clinical correlation isessential. Performed By: #### L 500.2500, L100.0100 ####[facility] [address] [place], [address] ECRCL 33.61 ml/min Normal [facility] Comment on above: Performed By: #### L 500.2500, L100.0100 ####[facility] [address] [place], [address] EST GFR - AA 50 mL/min Low >60 [facility] Comment on above: Result Comment: Afri can Indian GFR Calc Performed By: #### L 500.2500, L100.0100 ####[facility] [address] [place], [address] GAP 5 Normal 5-15 [facility] Comment on above: Performed By: #### L 500.2500, L100.0100 ####[facility] [address] [place], [address] GFR/1.73 sq M.predicted among non-blacks MDRD (S/P/Bld) [Vol rate/Area] 41 mL/min/{1.73_m2} Low >60 [facility] Comment on above: Result Comment: Non- GFR Calc Performed By: #### L 500.2500, L100.0100 ####[facility] [address] [place], [address] Glucose [Mass/Vol] 90 mg/dL Normal 74-106 [facility] Comment on above: Performed By: #### L 500.2500, L100.0100 ####[facility] [address] [place], [address] Potassium [Moles/Vol] 4.1 mmol/L Normal 3.5-5.1 [facility] Comment on above: Performed By: #### L 500.2500, L100.0100 ####[facility] [address] [place], [address] Sodium [Moles/Vol] 136 mmol/L Normal 136-145 [facility] Comment on above: Performed By: #### L 500.2500, L100.0100 ####[facility] [address] [place], [address] Urea nitrogen [Mass/Vol] 28 mg/dL High 7-18 [facility] Comment on above: Performed By: #### L 500.2500, L100.0100 ####[facility] [address] [place], [address] CBC W/Diff, Automatedon 10-2 -2023 Absolute Lymph 1.36 X10 3/uL Normal 0.83-4.51 [facility] Comment on above: Performed By: #### L 500.2500, L100.0100 ####[facility] [address] [place], [address] Absolute Neut 5.5 X10 3/uL Normal 2.0-7.7 [facility] Comment on above: Performed By: #### L 500.2500, L100.0100 ####[facility] [address] [place], [address] Basophils/100 WBC (Bld) 0.7 % Normal 0-1 [facility] Comment on above: Performed By: #### L 500.2500, L100.0100 ####[facility] [address] [place], [address] Eosinophils/100 WBC (Bld) 0.3 % Normal 0-5 [facility] Comment on above: Performed By: #### L 500.2500, L100.0100 ####[facility] [address] [place], [address] Erythrocyte distribution width (RBC) [Ratio] 13.4 % Normal 11.6-14.6 [facility] Comment on above: Performed By: #### L 500.2500, L100.0100 ####[facility] [address] [place], [address] Hematocrit (Bld) [Volume fraction] 45.6 % Normal 40-54 [facility] Comment on above: Performed By: #### L 500.2500, L100.0100 ####[facility] [address] [place], [address] Hemoglobin (Bld) [Mass/Vol] 15.4 g/dL Normal 13.0-16.5 [facility] Comment on above: Performed By: #### L 500.2500, L100.0100 ####[facility] [address] [place], [address] IG% 0.800 Normal 0.0-0.9 [facility] Comment on above: Result Comment: IG% - Immature Granulocytes (promyelocytes, myelocytes andmetamyelocytes) > 1% indicates that a LEFT SHIFT is Present. Performed By: #### L 500.2500, L100.0100 ####[facility] [address] [place], [address] Lymphocytes/100 WBC (Bld) 18.0 % Low 19-41 [facility] Comment on above: Performed By: #### L 500.2500, L100.0100 ####[facility] [address] [place], [address] MCH (RBC) [Entitic mass] 33.6 pg High 27.0-32.0 [facility] Comment on above: Performed By: #### L 500.2500, L100.0100 ####[facility] [address] [place], [address] MCHC (RBC) [Mass/Vol] 33.8 g/dL Normal 32-36 [facility] Comment on above: Performed By: #### L 500.2500, L100.0100 ####[facility] [address] [place], [address] MCV (RBC) [Entitic vol] 99.3 fL High 80-94 [facility] Comment on above: Performed By: #### L 500.2500, L100.0100 ####[facility] [address] [place], [address] Monocytes/100 WBC (Bld) 7.0 % Normal 0-10 [facility] Comment on above: Performed By: #### L 500.2500, L100.0100 ####[facility] [address] [place], [address] Neutrophils/100 WBC (Bld) 73.2 % High 47-70 [facility] Comment on above: Performed By: #### L 500.2500, L100.0100 ####[facility] [address] [place], [address] Nucleated RBC (Bld) [#/Vol] 0 10*3/uL Normal 0-5 [facility] Comment on above: Performed By: #### L 500.2500, L100.0100 ####[facility] [address] [place], [address] Platelet mean volume (Bld) [Entitic vol] 10.1 fL Normal 6.2-12.0 [facility] Comment on above: Performed By: #### L 500.2500, L100.0100 ####[facility] [address] [place], [address] Platelets (Bld) [#/Vol] 296 10*3/uL Normal 150-450 [facility] Comment on above: Performed By: #### L 500.2500, L100.0100 ####[facility] [address] [place], [address] RBC (Bld) [#/Vol] 4.59 10*6/uL Low 4.6-6.2 [facility] Comment on above: Performed By: #### L 500.2500, L100.0100 ####[facility] [address] [place], [address] RDW SD 48.8 fl High 35.1-43.9 [facility] Comment on above: Performed By: #### L 500.2500, L100.0100 ####[facility] [address] [place], [address] WBC (Bld) [#/Vol] 7.6 10*3/uL Normal 4.4-11.0 [facility] Comment on above: Performed By: #### L 500.2500, L100.0100 ####[facility] [address] [place], [address] Basic Metabolic Profile (BMP )on 04-09-2024 BUN/CRE 15.3 RATIO Normal 10-20 [facility] Comment on above: Performed By: #### L 500.2500, L100.0100 ####[facility] [address] [place], [address] CA,Total 9.8 mg/dL Normal 8.5-10.1 [facility] Comment on above: Performed By: #### L 500.2500, L100.0100 ####[facility] [address] [place], [address] Chloride [Moles/Vol] 107 mmol/L Normal 98-107 [facility] Comment on above: Performed By: #### L 500.2500, L100.0100 ####[facility] [address] [place], [address] CO2 [Moles/Vol] 26.0 mmol/L Normal 21.0-32.0 [facility] Comment on above: Performed By: #### L 500.2500, L100.0100 ####[facility] [address] [place], [address] Creatinine [Mass/Vol] 1.44 mg/dL High 0.70-1.30 [facility] Comment on above: Result Comment: The validity of the calculated GFR GFRAA in patients over70 years has not been determined. Clinical correlation isessential. Performed By: #### L 500.2500, L100.0100 ####[facility] [address] [place], [address] ECRCL 40.61 ml/min Normal [facility] Comment on above: Performed By: #### L 500.2500, L100.0100 ####[facility] [address] [place], [address] EST GFR - AA 62 mL/min Normal >60 [facility] Comment on above: Result Comment: Afri can Indian GFR Calc Performed By: #### L 500.2500, L100.0100 ####[facility] [address] [place], [address] GAP 4 Low 5-15 [facility] Comment on above: Performed By: #### L 500.2500, L100.0100 ####[facility] [address] [place], [address] GFR/1.73 sq M.predicted among non-blacks MDRD (S/P/Bld) [Vol rate/Area] 51 mL/min/{1.73_m2} Low >60 [facility] Comment on above: Result Comment: Non- GFR Calc Performed By: #### L 500.2500, L100.0100 ####[facility] [address] [place], [address] Glucose [Mass/Vol] 97 mg/dL Normal 74-106 [facility] Comment on above: Performed By: #### L 500.2500, L100.0100 ####[facility] [address] [place], [address] Potassium [Moles/Vol] 4.0 mmol/L Normal 3.5-5.1 [facility] Comment on above: Result Comment: Mode rate Hemolysis, Result may be falsely increased. Performed By: #### L 500.2500, L100.0100 ####[facility] [address] [place], [address] Sodium [Moles/Vol] 137 mmol/L Normal 136-145 [facility] Comment on above: Performed By: #### L 500.2500, L100.0100 ####[facility] [address] [place], [address] Urea nitrogen [Mass/Vol] 22 mg/dL High 7-18 [facility] Comment on above: Performed By: #### L 500.2500, L100.0100 ####[facility] [address] [place], [address] CBC W/Diff, Automatedon 10-2 Absolute Lymph 1.04 X10 3/uL Normal 0.83-4.51 [facility] Comment on above: Performed By: #### L 500.2500, L100.0100 ####[facility] [address] [place], [address] Absolute Neut 5.9 X10 3/uL Normal 2.0-7.7 [facility] Comment on above: Performed By: #### L 500.2500, L100.0100 ####[facility] [address] [place], [address] Basophils/100 WBC (Bld) 0.7 % Normal 0-1 [facility] Comment on above: Performed By: #### L 500.2500, L100.0100 ####[facility] [address] [place], [address] Eosinophils/100 WBC (Bld) 0.9 % Normal 0-5 [facility] Comment on above: Performed By: #### L 500.2500, L100.0100 ####[facility] [address] [place], [address] Erythrocyte distribution width (RBC) [Ratio] 13.2 % Normal 11.6-14.6 [facility] Comment on above: Performed By: #### L 500.2500, L100.0100 ####[facility] [address] [place], [address] Hematocrit (Bld) [Volume fraction] 45.7 % Normal 40-54 [facility] Comment on above: Performed By: #### L 500.2500, L100.0100 ####[facility] [address] [place], [address] Hemoglobin (Bld) [Mass/Vol] 15.0 g/dL Normal 13.0-16.5 [facility] Comment on above: Performed By: #### L 500.2500, L100.0100 ####[facility] [address] [place], [address] IG% 0.500 Normal 0.0-0.9 [facility] Comment on above: Result Comment: IG% - Immature Granulocytes (promyelocytes, myelocytes andmetamyelocytes) > 1% indicates that a LEFT SHIFT is Present. Performed By: #### L 500.2500, L100.0100 ####[facility] [address] [place], [address] Lymphocytes/100 WBC (Bld) 13.6 % Low 19-41 [facility] Comment on above: Performed By: #### L 500.2500, L100.0100 ####[facility] [address] [place], [address] MCH (RBC) [Entitic mass] 32.5 pg High 27.0-32.0 [facility] Comment on above: Performed By: #### L 500.2500, L100.0100 ####[facility] [address] [place], [address] MCHC (RBC) [Mass/Vol] 32.8 g/dL Normal 32-36 [facility] Comment on above: Performed By: #### L 500.2500, L100.0100 ####[facility] [address] [place], [address] MCV (RBC) [Entitic vol] 98.9 fL High 80-94 [facility] Comment on above: Performed By: #### L 500.2500, L100.0100 ####[facility] [address] [place], [address] Monocytes/100 WBC (Bld) 7.2 % Normal 0-10 [facility] Comment on above: Performed By: #### L 500.2500, L100.0100 ####[facility] [address] [place], [address] Neutrophils/100 WBC (Bld) 77.1 % High 47-70 [facility] Comment on above: Performed By: #### L 500.2500, L100.0100 ####[facility] [address] [place], [address] Nucleated RBC (Bld) [#/Vol] 0 10*3/uL Normal 0-5 [facility] Comment on above: Performed By: #### L 500.2500, L100.0100 ####[facility] [address] [place], [address] Platelet mean volume (Bld) [Entitic vol] 10.0 fL Normal 6.2-12.0 [facility] Comment on above: Performed By: #### L 500.2500, L100.0100 ####[facility] [address] [place], [address] Platelets (Bld) [#/Vol] 309 10*3/uL Normal 150-450 [facility] Comment on above: Performed By: #### L 500.2500, L100.0100 ####[facility] [address] [place], [address] RBC (Bld) [#/Vol] 4.62 10*6/uL Normal 4.6-6.2 [facility] Comment on above: Performed By: #### L 500.2500, L100.0100 ####[facility] [address] [place], [address] RDW SD 48.0 fl High 35.1-43.9 [facility] Comment on above: Performed By: #### L 500.2500, L100.0100 ####[facility] [address] [place], [address] WBC (Bld) [#/Vol] 7.7 10*3/uL Normal 4.4-11.0 [facility] Comment on above: Performed By: #### L 500.2500, L100.0100 ####[facility] [address] [place], [address] Basic Metabolic Profile (BMP )on 04-08-2024 BUN/CRE 10.4 RATIO Normal 10-20 [facility] Comment on above: Performed By: #### L 500.2500, L100.0100 ####[facility] [address] [place], [address] CA,Total 9.6 mg/dL Normal 8.5-10.1 [facility] Comment on above: Performed By: #### L 500.2500, L100.0100 ####[facility] [address] [place], [address] Chloride [Moles/Vol] 108 mmol/L High 98-107 [facility] Comment on above: Performed By: #### L 500.2500, L100.0100 ####[facility] [address] [place], [address] CO2 [Moles/Vol] 24.0 mmol/L Normal 21.0-32.0 [facility] Comment on above: Performed By: #### L 500.2500, L100.0100 ####[facility] [address] [place], [address] Creatinine [Mass/Vol] 1.15 mg/dL Normal 0.70-1.30 [facility] Comment on above: Result Comment: The validity of the calculated GFR GFRAA in patients over70 years has not been determined. Clinical correlation isessential. Performed By: #### L 500.2500, L100.0100 ####[facility] [address] [place], [address] ECRCL 50.86 ml/min Normal [facility] Comment on above: Performed By: #### L 500.2500, L100.0100 ####[facility] [address] [place], [address] EST GFR - AA 80 mL/min Normal >60 [facility] Comment on above: Result Comment: Afri can Indian GFR Calc Performed By: #### L 500.2500, L100.0100 ####[facility] [address] [place], [address] GAP 9 Normal 5-15 [facility] Comment on above: Performed By: #### L 500.2500, L100.0100 ####[facility] [address] [place], [address] GFR/1.73 sq M.predicted among non-blacks MDRD (S/P/Bld) [Vol rate/Area] 66 mL/min/{1.73_m2} Normal >60 [facility] Comment on above: Result Comment: Non- GFR Calc Performed By: #### L 500.2500, L100.0100 ####[facility] [address] [place], [address] Glucose [Mass/Vol] 92 mg/dL Normal 74-106 [facility] Comment on above: Performed By: #### L 500.2500, L100.0100 ####[facility] [address] [place], [address] Potassium [Moles/Vol] 3.9 mmol/L Normal 3.5-5.1 [facility] Comment on above: Result Comment: Slig ht Hemolysis, Result may be falsely increased. Performed By: #### L 500.2500, L100.0100 ####[facility] [address] [place], [address] Sodium [Moles/Vol] 142 mmol/L Normal 136-145 [facility] Comment on above: Performed By: #### L 500.2500, L100.0100 ####[facility] [address] [place], [address] Urea nitrogen [Mass/Vol] 12 mg/dL Normal 7-18 [facility] Comment on above: Performed By: #### L 500.2500, L100.0100 ####[facility] [address] [place], [address] CBC W/Diff, Automatedon 10-2 Absolute Lymph 1.20 X10 3/uL Normal 0.83-4.51 [facility] Comment on above: Performed By: #### L 500.2500, L100.0100 ####[facility] [address] [place], [address] Absolute Neut 4.1 X10 3/uL Normal 2.0-7.7 [facility] Comment on above: Performed By: #### L 500.2500, L100.0100 ####[facility] [address] [place], [address] Basophils/100 WBC (Bld) 1.3 % High 0-1 [facility] Comment on above: Performed By: #### L 500.2500, L100.0100 ####[facility] [address] [place], [address] Eosinophils/100 WBC (Bld) 2.0 % Normal 0-5 [facility] Comment on above: Performed By: #### L 500.2500, L100.0100 ####[facility] [address] [place], [address] Erythrocyte distribution width (RBC) [Ratio] 13.0 % Normal 11.6-14.6 [facility] Comment on above: Performed By: #### L 500.2500, L100.0100 ####[facility] [address] [place], [address] Hematocrit (Bld) [Volume fraction] 44.0 % Normal 40-54 [facility] Comment on above: Performed By: #### L 500.2500, L100.0100 ####[facility] [address] [place], [address] Hemoglobin (Bld) [Mass/Vol] 14.6 g/dL Normal 13.0-16.5 [facility] Comment on above: Performed By: #### L 500.2500, L100.0100 ####[facility] [address] [place], [address] IG% 0.300 Normal 0.0-0.9 [facility] Comment on above: Result Comment: IG% - Immature Granulocytes (promyelocytes, myelocytes andmetamyelocytes) > 1% indicates that a LEFT SHIFT is Present. Performed By: #### L 500.2500, L100.0100 ####[facility] [address] [place], [address] Lymphocytes/100 WBC (Bld) 20.0 % Normal 19-41 [facility] Comment on above: Performed By: #### L 500.2500, L100.0100 ####[facility] [address] [place], [address] MCH (RBC) [Entitic mass] 32.7 pg High 27.0-32.0 [facility] Comment on above: Performed By: #### L 500.2500, L100.0100 ####[facility] [address] [place], [address] MCHC (RBC) [Mass/Vol] 33.2 g/dL Normal 32-36 [facility] Comment on above: Performed By: #### L 500.2500, L100.0100 ####[facility] [address] [place], [address] MCV (RBC) [Entitic vol] 98.4 fL High 80-94 [facility] Comment on above: Performed By: #### L 500.2500, L100.0100 ####[facility] [address] [place], [address] Monocytes/100 WBC (Bld) 8.7 % Normal 0-10 [facility] Comment on above: Performed By: #### L 500.2500, L100.0100 ####[facility] [address] [place], [address] Neutrophils/100 WBC (Bld) 67.7 % Normal 47-70 [facility] Comment on above: Performed By: #### L 500.2500, L100.0100 ####[facility] [address] [place], [address] Nucleated RBC (Bld) [#/Vol] 0 10*3/uL Normal 0-5 [facility] Comment on above: Performed By: #### L 500.2500, L100.0100 ####[facility] [address] [place], [address] Platelet mean volume (Bld) [Entitic vol] 9.9 fL Normal 6.2-12.0 [facility] Comment on above: Performed By: #### L 500.2500, L100.0100 ####[facility] [address] [place], [address] Platelets (Bld) [#/Vol] 270 10*3/uL Normal 150-450 [facility] Comment on above: Performed By: #### L 500.2500, L100.0100 ####[facility] [address] [place], [address] RBC (Bld) [#/Vol] 4.47 10*6/uL Low 4.6-6.2 [facility] Comment on above: Performed By: #### L 500.2500, L100.0100 ####[facility] [address] [place], [address] RDW SD 47.0 fl High 35.1-43.9 [facility] Comment on above: Performed By: #### L 500.2500, L100.0100 ####[facility] [address] [place], [address] WBC (Bld) [#/Vol] 6.0 10*3/uL Normal 4.4-11.0 [facility] Comment on above: Performed By: #### L 500.2500, L100.0100 ####[facility] [address] [place], [address] Vitamin D,25 Hydroxyon 10-21 -2024 Vitamin D 25-OH 35.4 ng/mL Normal [facility] Comment on above: Result Comment: Teri min D 25(OH) Status Range Deficiency <20 ng/mL (50nmol/L) Insufficiency 20 - 30 ng/mL (50 - 75 nmol/L) Sufficiency 30 - 100 ng/mL (75 - 250 nmol/L) Toxicity >100 ng/mL (>250 nmol/L) Performed By: #### L 506.1000 ####[facility] [address] [place], [address] Basic Metabolic Profile (BMP )on 04-07-2024 BUN/CRE 16.2 RATIO Normal 04-07 [facility] Comment on above: Performed By: #### L 100.0100, L501.9520, L500.2500 ####[facility] [address] [place], [address] CA,Total 9.1 mg/dL Normal 8.5-10.1 [facility] Comment on above: Performed By: #### L 100.0100, L501.9520, L500.2500 ####[facility] [address] [place], [address] Chloride [Moles/Vol] 106 mmol/L Normal 98-107 [facility] Comment on above: Performed By: #### L 100.0100, L501.9520, L500.2500 ####[facility] [address] [place], [address] CO2 [Moles/Vol] 25.0 mmol/L Normal 21.0-32.0 [facility] Comment on above: Performed By: #### L 100.0100, L501.9520, L500.2500 ####[facility] [address] [place], [address] Creatinine [Mass/Vol] 1.05 mg/dL Normal 0.70-1.30 [facility] Comment on above: Result Comment: The validity of the calculated GFR GFRAA in patients over70 years has not been determined. Clinical correlation isessential. Performed By: #### L 100.0100, L501.9520, L500.2500 ####[facility] [address] [place], [address] ECRCL 55.70 ml/min Normal [facility] Comment on above: Performed By: #### L 100.0100, L501.9520, L500.2500 ####[facility] [address] [place], [address] EST GFR - AA 89 mL/min Normal >60 [facility] Comment on above: Result Comment: Afri can Indian GFR Calc Performed By: #### L 100.0100, L501.9520, L500.2500 ####[facility] [address] [place], [address] GAP 4 Low 5-15 [facility] Comment on above: Performed By: #### L 100.0100, L501.9520, L500.2500 ####[facility] [address] [place], [address] GFR/1.73 sq M.predicted among non-blacks MDRD (S/P/Bld) [Vol rate/Area] 73 mL/min/{1.73_m2} Normal >60 [facility] Comment on above: Result Comment: Non- GFR Calc Performed By: #### L 100.0100, L501.9520, L500.2500 ####[facility] [address] [place], [address] Glucose [Mass/Vol] 95 mg/dL Normal 74-106 [facility] Comment on above: Performed By: #### L 100.0100, L501.9520, L500.2500 ####[facility] [address] [place], [address] Potassium [Moles/Vol] 3.6 mmol/L Normal 3.5-5.1 [facility] Comment on above: Performed By: #### L 100.0100, L501.9520, L500.2500 ####[facility] [address] [place], [address] Sodium [Moles/Vol] 135 mmol/L Low 136-145 [facility] Comment on above: Performed By: #### L 100.0100, L501.9520, L500.2500 ####[facility] [address] [place], [address] Urea nitrogen [Mass/Vol] 17 mg/dL Normal 7-18 [facility] Comment on above: Performed By: #### L 100.0100, L501.9520, L500.2500 ####[facility] [address] [place], [address] CBC W/Diff, Automatedon 10-2 0-2024 Absolute Lymph 1.44 X10 3/uL Normal 0.83-4.51 [facility] Comment on above: Performed By: #### L 100.0100, L501.9520, L500.2500 ####[facility] [address] [place], [address] Absolute Neut 3.8 X10 3/uL Normal 2.0-7.7 [facility] Comment on above: Performed By: #### L 100.0100, L501.9520, L500.2500 ####[facility] [address] [place], [address] Basophils/100 WBC (Bld) 1.5 % High 0-1 [facility] Comment on above: Performed By: #### L 100.0100, L501.9520, L500.2500 ####[facility] [address] [place], [address] Eosinophils/100 WBC (Bld) 1.5 % Normal 0-5 [facility] Comment on above: Performed By: #### L 100.0100, L501.9520, L500.2500 ####[facility] [address] [place], [address] Erythrocyte distribution width (RBC) [Ratio] 12.8 % Normal 11.6-14.6 [facility] Comment on above: Performed By: #### L 100.0100, L501.9520, L500.2500 ####[facility] [address] [place], [address] Hematocrit (Bld) [Volume fraction] 42.4 % Normal 40-54 [facility] Comment on above: Performed By: #### L 100.0100, L501.9520, L500.2500 ####[facility] [address] [place], [address] Hemoglobin (Bld) [Mass/Vol] 14.2 g/dL Normal 13.0-16.5 [facility] Comment on above: Performed By: #### L 100.0100, L501.9520, L500.2500 ####[facility] [address] [place], [address] IG% 0.300 Normal 0.0-0.9 [facility] Comment on above: Result Comment: IG% - Immature Granulocytes (promyelocytes, myelocytes andmetamyelocytes) > 1% indicates that a LEFT SHIFT is Present. Performed By: #### L 100.0100, L501.9520, L500.2500 ####[facility] [address] [place], [address] Lymphocytes/100 WBC (Bld) 24.4 % Normal 19-41 [facility] Comment on above: Performed By: #### L 100.0100, L501.9520, L500.2500 ####[facility] [address] [place], [address] MCH (RBC) [Entitic mass] 32.8 pg High 27.0-32.0 [facility] Comment on above: Performed By: #### L 100.0100, L501.9520, L500.2500 ####[facility] [address] [place], [address] MCHC (RBC) [Mass/Vol] 33.5 g/dL Normal 32-36 [facility] Comment on above: Performed By: #### L 100.0100, L501.9520, L500.2500 ####[facility] [address] [place], [address] MCV (RBC) [Entitic vol] 97.9 fL High 80-94 [facility] Comment on above: Performed By: #### L 100.0100, L501.9520, L500.2500 ####[facility] [address] [place], [address] Monocytes/100 WBC (Bld) 7.8 % Normal 0-10 [facility] Comment on above: Performed By: #### L 100.0100, L501.9520, L500.2500 ####[facility] [address] [place], [address] Neutrophils/100 WBC (Bld) 64.5 % Normal 47-70 [facility] Comment on above: Performed By: #### L 100.0100, L501.9520, L500.2500 ####[facility] [address] [place], [address] Nucleated RBC (Bld) [#/Vol] 0 10*3/uL Normal 0-5 [facility] Comment on above: Performed By: #### L 100.0100, L501.9520, L500.2500 ####[facility] [address] [place], [address] Platelet mean volume (Bld) [Entitic vol] 9.8 fL Normal 6.2-12.0 [facility] Comment on above: Performed By: #### L 100.0100, L501.9520, L500.2500 ####[facility] [address] [place], [address] Platelets (Bld) [#/Vol] 292 10*3/uL Normal 150-450 [facility] Comment on above: Performed By: #### L 100.0100, L501.9520, L500.2500 ####[facility] [address] [place], [address] RBC (Bld) [#/Vol] 4.33 10*6/uL Low 4.6-6.2 [facility] Comment on above: Performed By: #### L 100.0100, L501.9520, L500.2500 ####[facility] [address] [place], [address] RDW SD 46.1 fl High 35.1-43.9 [facility] Comment on above: Performed By: #### L 100.0100, L501.9520, L500.2500 ####[facility] [address] [place], [address] WBC (Bld) [#/Vol] 5.9 10*3/uL Normal 4.4-11.0 [facility] Comment on above: Performed By: #### L 100.0100, L501.9520, L500.2500 ####[facility] [address] [place], [address] Thyroid Stim Hormone (TSH)on 04-07-2024 TSH 1.730 uIU/mL Normal 0.358-3.740 [facility] Comment on above: Performed By: #### L 100.0100, L501.9520, L500.2500 ####[facility] [address] [place], [address] 12 Lead EKGon 04-06-2024 12 Lead EKG Normal [facility] Basic Metabolic Profile (BMP )on 04-06-2024 BUN/CRE 16.2 RATIO Normal -20 [facility] Comment on above: Order Comment: 'TROP ' Serial specimen #1, #2 or #3: 1 Performed By: #### L 500.2500, L100.0100, L501.4020 ####[facility] [address] [place], [address] CA,Total 10.0 mg/dL Normal 8.5-10.1 [facility] Comment on above: Order Comment: 'TROP ' Serial specimen #1, #2 or #3: 1 Performed By: #### L 500.2500, L100.0100, L501.4020 ####[facility] [address] [place], [address] Chloride [Moles/Vol] 104 mmol/L Normal 98-107 [facility] Comment on above: Order Comment: 'TROP ' Serial specimen #1, #2 or #3: 1 Performed By: #### L 500.2500, L100.0100, L501.4020 ####[facility] [address] [place], [address] CO2 [Moles/Vol] 31.0 mmol/L Normal 21.0-32.0 [facility] Comment on above: Order Comment: 'TROP ' Serial specimen #1, #2 or #3: 1 Performed By: #### L 500.2500, L100.0100, L501.4020 ####[facility] [address] [place], [address] Creatinine [Mass/Vol] 1.36 mg/dL High 0.70-1.30 [facility] Comment on above: Order Comment: 'TROP ' Serial specimen #1, #2 or #3: 1 Result Comment: The validity of the calculated GFR GFRAA in patients over70 years has not been determined. Clinical correlation isessential. Performed By: #### L 500.2500, L100.0100, L501.4020 ####[facility] [address] [place], [address] ECRCL 42.94 ml/min Normal [facility] Comment on above: Order Comment: 'TROP ' Serial specimen #1, #2 or #3: 1 Performed By: #### L 500.2500, L100.0100, L501.4020 ####[facility] [address] [place], [address] EST GFR - AA 66 mL/min Normal >60 [facility] Comment on above: Order Comment: 'TROP ' Serial specimen #1, #2 or #3: 1 Result Comment: Afri can Indian GFR Calc Performed By: #### L 500.2500, L100.0100, L501.4020 ####[facility] [address] [place], [address] GAP 3 Low 5-15 [facility] Comment on above: Order Comment: 'TROP ' Serial specimen #1, #2 or #3: 1 Performed By: #### L 500.2500, L100.0100, L501.4020 ####[facility] [address] [place], [address] GFR/1.73 sq M.predicted among non-blacks MDRD (S/P/Bld) [Vol rate/Area] 54 mL/min/{1.73_m2} Low >60 [facility] Comment on above: Order Comment: 'TROP ' Serial specimen #1, #2 or #3: 1 Result Comment: Non- GFR Calc Performed By: #### L 500.2500, L100.0100, L501.4020 ####[facility] [address] [place], [address] Glucose [Mass/Vol] 99 mg/dL Normal 74-106 [facility] Comment on above: Order Comment: 'TROP ' Serial specimen #1, #2 or #3: 1 Performed By: #### L 500.2500, L100.0100, L501.4020 ####[facility] [address] [place], [address] Potassium [Moles/Vol] 4.1 mmol/L Normal 3.5-5.1 [facility] Comment on above: Order Comment: 'TROP ' Serial specimen #1, #2 or #3: 1 Performed By: #### L 500.2500, L100.0100, L501.4020 ####[facility] [address] [place], [address] Sodium [Moles/Vol] 138 mmol/L Normal 136-145 [facility] Comment on above: Order Comment: 'TROP ' Serial specimen #1, #2 or #3: 1 Performed By: #### L 500.2500, L100.0100, L501.4020 ####[facility] [address] [place], [address] Urea nitrogen [Mass/Vol] 22 mg/dL High 7-18 [facility] Comment on above: Order Comment: 'TROP ' Serial specimen #1, #2 or #3: 1 Performed By: #### L 500.2500, L100.0100, L501.4020 ####[facility] [address] [place], [address] Brain/Head without Contrasto n - Brain/Head without Contrast Normal [facility] CBC W/Diff, Automatedon - Absolute Lymph 1.59 X10 3/uL Normal 0.83-4.51 [facility] Comment on above: Performed By: #### L 500.2500, L100.0100, L501.4020 ####[facility] [address] [place], [address] Absolute Neut 4.3 X10 3/uL Normal 2.0-7.7 [facility] Comment on above: Performed By: #### L 500.2500, L100.0100, L501.4020 ####[facility] [address] [place], [address] Basophils/100 WBC (Bld) 1.1 % High 0-1 [facility] Comment on above: Performed By: #### L 500.2500, L100.0100, L501.4020 ####[facility] [address] [place], [address] Eosinophils/100 WBC (Bld) 0.9 % Normal 0-5 [facility] Comment on above: Performed By: #### L 500.2500, L100.0100, L501.4020 ####[facility] [address] [place], [address] Erythrocyte distribution width (RBC) [Ratio] 13.0 % Normal 11.6-14.6 [facility] Comment on above: Performed By: #### L 500.2500, L100.0100, L501.4020 ####[facility] [address] [place], [address] Hematocrit (Bld) [Volume fraction] 49.3 % Normal 40-54 [facility] Comment on above: Performed By: #### L 500.2500, L100.0100, L501.4020 ####[facility] [address] [place], [address] Hemoglobin (Bld) [Mass/Vol] 17.0 g/dL High 13.0-16.5 [facility] Comment on above: Performed By: #### L 500.2500, L100.0100, L501.4020 ####[facility] [address] [place], [address] IG% 0.500 Normal 0.0-0.9 [facility] Comment on above: Result Comment: IG% - Immature Granulocytes (promyelocytes, myelocytes andmetamyelocytes) > 1% indicates that a LEFT SHIFT is Present. Performed By: #### L 500.2500, L100.0100, L501.4020 ####[facility] [address] [place], [address] Lymphocytes/100 WBC (Bld) 24.3 % Normal 19-41 [facility] Comment on above: Performed By: #### L 500.2500, L100.0100, L501.4020 ####[facility] [address] [place], [address] MCH (RBC) [Entitic mass] 33.5 pg High 27.0-32.0 [facility] Comment on above: Performed By: #### L 500.2500, L100.0100, L501.4020 ####[facility] [address] [place], [address] MCHC (RBC) [Mass/Vol] 34.5 g/dL Normal 32-36 [facility] Comment on above: Performed By: #### L 500.2500, L100.0100, L501.4020 ####[facility] [address] [place], [address] MCV (RBC) [Entitic vol] 97.0 fL High 80-94 [facility] Comment on above: Performed By: #### L 500.2500, L100.0100, L501.4020 ####[facility] [address] [place], [address] Monocytes/100 WBC (Bld) 6.9 % Normal 0-10 [facility] Comment on above: Performed By: #### L 500.2500, L100.0100, L501.4020 ####[facility] [address] [place], [address] Neutrophils/100 WBC (Bld) 66.3 % Normal 47-70 [facility] Comment on above: Performed By: #### L 500.2500, L100.0100, L501.4020 ####[facility] [address] [place], [address] Nucleated RBC (Bld) [#/Vol] 0 10*3/uL Normal 0-5 [facility] Comment on above: Performed By: #### L 500.2500, L100.0100, L501.4020 ####[facility] [address] [place], [address] Platelet mean volume (Bld) [Entitic vol] 10.2 fL Normal 6.2-12.0 [facility] Comment on above: Performed By: #### L 500.2500, L100.0100, L501.4020 ####[facility] [address] [place], [address] Platelets (Bld) [#/Vol] 329 10*3/uL Normal 150-450 [facility] Comment on above: Performed By: #### L 500.2500, L100.0100, L501.4020 ####[facility] [address] [place], [address] RBC (Bld) [#/Vol] 5.08 10*6/uL Normal 4.6-6.2 [facility] Comment on above: Performed By: #### L 500.2500, L100.0100, L501.4020 ####[facility] [address] [place], [address] RDW SD 46.7 fl High 35.1-43.9 [facility] Comment on above: Performed By: #### L 500.2500, L100.0100, L501.4020 ####[facility] [address] [place], [address] WBC (Bld) [#/Vol] 6.5 10*3/uL Normal 4.4-11.0 [facility] Comment on above: Performed By: #### L 500.2500, L100.0100, L501.4020 ####[facility] [address] [place], [address] Chest 1 View (Portable)on Chest 1 View (Portable) Normal [facility] Echo Completeon 04-06-2024 Echo Complete Normal [facility] Emergency Department Summary on 04-06-2024 Emergency Department Summary Normal [facility] H AND P Exam - Hospitaliston 04-06-2024 H&P Exam - Hospitalist Normal [facility] L501.4020on 04-06-2024 TROPONIN-I HS 18 pg/mL Normal 3.0-78.0 [facility] Comment on above: Order Comment: 'TROP ' Serial specimen #1, #2 or #3: 2 Result Comment: Plea se Note: New Test Units and Gender Specific Reference Ranges. For more information see Policy Stat Procedure [place] High Sensitivity Troponin (TNIH) and attachments. Performed By: #### L 501.4020 ####[facility] [address] [place], [address] TROPONIN-I HS 9 pg/mL Normal 3.0-78.0 [facility] Comment on above: Order Comment: 'TROP ' Serial specimen #1, #2 or #3: 1 Result Comment: Plea se Note: New Test Units and Gender Specific Reference Ranges. For more information see Policy Stat Procedure [place] High Sensitivity Troponin (TNIH) and attachments. Performed By: #### L 500.2500, L100.0100, L501.4020 ####[facility] [address] [place], [address] Lumbar Spine 2 or 3 Viewson 04-06-2024 Lumbar Spine 2 or 3 Views Normal [facility] Magnesiumon 04-06-2024 Magnesium [Mass/Vol] 2.3 mg/dL Normal 1.6-2.6 [facility] Comment on above: Performed By: #### L 501.5200 ####[facility] [address] [place], [address] Spine Cervical without Contr ason 04-06-2024 Spine Cervical without Contras Normal [facility] Thoracic Spine 2 Viewson Thoracic Spine 2 Views Normal [facility] Urinalysis, Completeon 04-06 EPI,SQUAMOUS 5-10 SEEN Normal 0-5 [facility] Comment on above: Order Comment: CLEAN CATCH Performed By: #### L 400.0001 ####[facility] [address] [place], [address] BACTERIA 0 SEEN Normal None Seen [facility] Comment on above: Order Comment: CLEAN CATCH Performed By: #### L 400.0001 ####[facility] [address] [place], [address] Mucus Ql (Urine sed) [address] [facility] Comment on above: Order Comment: CLEAN CATCH Performed By: #### L 400.0001 ####[facility] [address] [place], [address] RBC 0 SEEN Normal 0-5 [facility] Comment on above: Order Comment: CLEAN CATCH Performed By: #### L 400.0001 ####[facility] [address] [place], [address] WBC 0 SEEN Normal 0-5 [facility] Comment on above: Order Comment: CLEAN CATCH Performed By: #### L 400.0001 ####[facility] [address] [place], [address] UA DIP, URINE (POC)on 2023 BILIRUBIN UA (POCT) Negative Negative [facility] CLARITY UA (POCT) Cloudy [facility] COLOR UA (POCT) Yellow [facility] GLUCOSE UA (POCT) Negative Negative mg/dL [facility] Hemoglobin Ql (U) Negative Negative [facility] Interpretation and review of laboratory results Abnormal [facility] KETONE UA (POCT) Trace Negative mg/dL [facility] LEUKOCYTES UA (POCT) Trace Abnormal Negative [facility] NITRITE UA (POCT) Positive Abnormal Negative [facility] PH UA (POCT) 6.0 4.5 - 8.0 [facility] Protein Ql (U) 100 mg/dL Abnormal Negative [facility] SPECIFIC GRAVITY UA (POCT) 1.025 1.005 - 1.030 [facility] UROBILINOGEN UA (POCT) 0.2 Malaika l E.U./dL [facility] Location:[facility], [facility], [place], [address] [facility] POINT OF CARE [facility] Alcohol, Blood (Medical)-Ser umon 02-20-2024 SERUM ETOH < 3.0 Normal [facility] Comment on above: Result Comment: The serum:whole blood ethanol ratio is approximately 1.14and varies slightly with hematocrit.Medical Alcohol reference interval and critical value innon-tolerant individuals; 50 - 100 Impairment 100 Intoxication 100 - 250 Severe Poisoning 250 - 400 Deep/possible fatal coma Performed By: #### L 500.2500, L501.2450, L100.0500, L501.9100, L501.5425 ####[facility] [address] [place], [address] Basic Metabolic Profile (BMP )on 02-20-2024 BUN/CRE 13.3 RATIO Normal 10-20 [facility] Comment on above: Order Comment: 1Y Performed By: #### L 500.2500, L501.2450, L100.0500, L501.9100, L501.5425 ####[facility] [address] [place], [address] CA,Total 10.7 mg/dL High 8.5-10.1 [facility] Comment on above: Order Comment: 1Y Performed By: #### L 500.2500, L501.2450, L100.0500, L501.9100, L501.5425 ####[facility] [address] [place], [address] Chloride [Moles/Vol] 98 mmol/L Normal 98-107 [facility] Comment on above: Order Comment: 1Y Performed By: #### L 500.2500, L501.2450, L100.0500, L501.9100, L501.5425 ####[facility] [address] [place], [address] CO2 [Moles/Vol] 30.0 mmol/L Normal 21.0-32.0 [facility] Comment on above: Order Comment: 1Y Performed By: #### L 500.2500, L501.2450, L100.0500, L501.9100, L501.5425 ####[facility] [address] [place], [address] Creatinine [Mass/Vol] 1.35 mg/dL High 0.70-1.30 [facility] Comment on above: Order Comment: 1Y Result Comment: The validity of the calculated GFR GFRAA in patients over70 years has not been determined. Clinical correlation isessential. Performed By: #### L 500.2500, L501.2450, L100.0500, L501.9100, L501.5425 ####[facility] [address] [place], [address] EST GFR - AA 66 mL/min Normal >60 [facility] Comment on above: Order Comment: 1Y Result Comment: Afri can Indian GFR Calc Performed By: #### L 500.2500, L501.2450, L100.0500, L501.9100, L501.5425 ####[facility] [address] [place], [address] GAP 9 Normal 5-15 [facility] Comment on above: Order Comment: 1Y Performed By: #### L 500.2500, L501.2450, L100.0500, L501.9100, L501.5425 ####[facility] [address] [place], [address] GFR/1.73 sq M.predicted among non-blacks MDRD (S/P/Bld) [Vol rate/Area] 55 mL/min/{1.73_m2} Low >60 [facility] Comment on above: Order Comment: 1Y Result Comment: Non- GFR Calc Performed By: #### L 500.2500, L501.2450, L100.0500, L501.9100, L501.5425 ####[facility] [address] [place], [address] Glucose [Mass/Vol] 84 mg/dL Normal 74-106 [facility] Comment on above: Order Comment: 1Y Performed By: #### L 500.2500, L501.2450, L100.0500, L501.9100, L501.5425 ####[facility] [address] [place], [address] Potassium [Moles/Vol] 4.3 mmol/L Normal 3.5-5.1 [facility] Comment on above: Order Comment: 1Y Performed By: #### L 500.2500, L501.2450, L100.0500, L501.9100, L501.5425 ####[facility] [address] [place], [address] Sodium [Moles/Vol] 137 mmol/L Normal 136-145 [facility] Comment on above: Order Comment: 1Y Performed By: #### L 500.2500, L501.2450, L100.0500, L501.9100, L501.5425 ####[facility] [address] [place], [address] Urea nitrogen [Mass/Vol] 18 mg/dL Normal 7-18 [facility] Comment on above: Order Comment: 1Y Performed By: #### L 500.2500, L501.2450, L100.0500, L501.9100, L501.5425 ####[facility] [address] [place], [address] Bedside Glucoseon 02-20-2024 FINGERSTICK GLU 83 mg/dL Normal 74-106 [facility] Comment on above: Result Comment: RONA GEMENT OF PATIENT CARE PER NURSING PROTOCOL Performed By: #### L 501.080 ####[facility] [address] [place], [address] Brain/Head without Contrasto n 02-20-2024 Brain/Head without Contrast Normal [facility] CBC-Complete Blood Cnt No Di ffon 02-20-2024 Erythrocyte distribution width (RBC) [Ratio] 13.2 % Normal 11.6-14.6 [facility] Comment on above: Performed By: #### L 500.2500, L501.2450, L100.0500, L501.9100, L501.5425 ####[facility] [address] [place], [address] Hematocrit (Bld) [Volume fraction] 51.8 % Normal 40-54 [facility] Comment on above: Performed By: #### L 500.2500, L501.2450, L100.0500, L501.9100, L501.5425 ####[facility] [address] [place], [address] Hemoglobin (Bld) [Mass/Vol] 17.1 g/dL High 13.0-16.5 [facility] Comment on above: Performed By: #### L 500.2500, L501.2450, L100.0500, L501.9100, L501.5425 ####[facility] [address] [place], [address] MCH (RBC) [Entitic mass] 32.0 pg Normal 27.0-32.0 [facility] Comment on above: Performed By: #### L 500.2500, L501.2450, L100.0500, L501.9100, L501.5425 ####[facility] [address] [place], [address] MCHC (RBC) [Mass/Vol] 33.0 g/dL Normal 32-36 [facility] Comment on above: Performed By: #### L 500.2500, L501.2450, L100.0500, L501.9100, L501.5425 ####[facility] [address] [place], [address] MCV (RBC) [Entitic vol] 96.8 fL High 80-94 [facility] Comment on above: Performed By: #### L 500.2500, L501.2450, L100.0500, L501.9100, L501.5425 ####[facility] [address] [place], [address] Platelet mean volume (Bld) [Entitic vol] 9.8 fL Normal 6.2-12.0 [facility] Comment on above: Performed By: #### L 500.2500, L501.2450, L100.0500, L501.9100, L501.5425 ####[facility] [address] [place], [address] Platelets (Bld) [#/Vol] 307 10*3/uL Normal 150-450 [facility] Comment on above: Performed By: #### L 500.2500, L501.2450, L100.0500, L501.9100, L501.5425 ####[facility] [address] [place], [address] RBC (Bld) [#/Vol] 5.35 10*6/uL Normal 4.6-6.2 [facility] Comment on above: Performed By: #### L 500.2500, L501.2450, L100.0500, L501.9100, L501.5425 ####[facility] [address] [place], [address] RDW SD 47.1 fl High 35.1-43.9 [facility] Comment on above: Performed By: #### L 500.2500, L501.2450, L100.0500, L501.9100, L501.5425 ####[facility] [address] [place], [address] WBC (Bld) [#/Vol] 6.6 10*3/uL Normal 4.4-11.0 [facility] Comment on above: Performed By: #### L 500.2500, L501.2450, L100.0500, L501.9100, L501.5425 ####[facility] [address] [place], [address] Chest 1 View (Portable)on Chest 1 View (Portable) Normal [facility] Emergency Department Summary on 02-20-2024 Emergency Department Summary Normal [facility] Femur Min 2 Viewson 02-20-20 24 Femur Min 2 Views Normal [facility] Knee 1 or 2 Viewson 02-20-20 24 Knee 1 or 2 Views Normal [facility] L501.4020on 02-20-2024 TROPONIN-I HS 18 pg/mL Normal 3.0-78.0 [facility] Comment on above: Result Comment: Plea se Note: New Test Units and Gender Specific Reference Ranges. For more information see Policy Stat Procedure [place] High Sensitivity Troponin (TNIH) and attachments. Performed By: #### L 501.4020 ####[facility] [address] [place], [address] L501.5425on 02-20-2024 TROPONIN-I HS 14 pg/mL Normal 3.0-78.0 [facility] Comment on above: Order Comment: 1Y Result Comment: Plea se Note: New Test Units and Gender Specific Reference Ranges. For more information see Policy Stat Procedure [place] High Sensitivity Troponin (TNIH) and attachments. Performed By: #### L 500.2500, L501.2450, L100.0500, L501.9100, L501.5425 ####[facility] [address] [place], [address] Lipaseon 02-20-2024 Lipase [Catalytic activity/Vol] 23 U/L Normal 13-75 [facility] Comment on above: Order Comment: 1Y Result Comment: Brant gregorio note:LIPASE revised reference range effective 22.New Lipase methodology. Expected to produce lower valuesthan the previous assay method.NEW Reference Range: 13 - 75 U/L Performed By: #### L 500.2500, L501.2450, L100.0500, L501.9100, L501.5425 ####[facility] [address] [place], [address] Spine Cervical without Contr ason 02-20-2024 Spine Cervical without Contras Normal [facility] Spine Thoracic without Contr ason 02-20-2024 Spine Thoracic without Contras Normal [facility] Urinalysis, Completeon 02-19 EPI,RENAL 0-5 SEEN Normal 0-5 [facility] Comment on above: Order Comment: MEHREEN CTOR TO SPECIFY Performed By: #### L 400.0001 ####[facility] [address] [place], [address] EPI,SQUAMOUS 0-5 SEEN Normal 0-5 [facility] Comment on above: Order Comment: MEHREEN CTOR TO SPECIFY Performed By: #### L 400.0001 ####[facility] [address] [place], [address] BACTERIA 3+ /hpf Normal None Seen [facility] Comment on above: Order Comment: MEHREEN CTOR TO SPECIFY Performed By: #### L 400.0001 ####[facility] [address] [place], [address] WBC 0-5 SEEN Normal 0-5 [facility] Comment on above: Order Comment: COLLE CTOR TO SPECIFY Performed By: #### L 400.0001 ####[facility] [address] [place], [address] Mucus Ql (Urine sed) [address] [facility] Comment on above: Order Comment: COLLE CTOR TO SPECIFY Performed By: #### L 400.0001 ####[facility] [address] [facility] [address] RBC 0 SEEN Normal 0-5 [facility] Comment on above: Order Comment: COLLE CTOR TO SPECIFY Performed By: #### L 400.0001 ####[facility] [address] [facility] [address] Urine Drug Screen (VISTA)on 02-20-2024 AMPHETAMINES Negative Normal <1000 ng/mL [facility] Comment on above: Performed By: #### L 505.5000 ####[facility] [address] [facility] [address] BARBITIURATES Negative Normal < 200 ng/mL [facility] Comment on above: Performed By: #### L 505.5000 ####[facility] [address] [facility] [address] BENZODIAZIPINE Negative Normal < 200 ng/mL [facility] Comment on above: Performed By: #### L 505.5000 ####[facility] [address] [place] [id number] COCAINE Negative Normal < 300 ng/mL [facility] Comment on above: Performed By: #### L 505.5000 ####[facility] [address] [place] [id number] ECSTACY Negative Normal < 500 ng/mL [facility] Comment on above: Performed By: #### L 505.5000 ####[facility] [address] [facility] [address] METHADONE Negative Normal < 300 ng/mL [facility] Comment on above: Performed By: #### L 505.5000 ####[facility] [address] [place] [id number] OPIATES Negative Normal < 300 ng/mL [facility] Comment on above: Performed By: #### L 505.5000 ####[facility] [address] [place], [address] PCP Negative Normal < 25 ng/mL [facility] Comment on above: Performed By: #### L 505.5000 ####[facility] [address] [place], [address] THC Negative Normal < 50 ng/mL [facility] Comment on above: Performed By: #### L 505.5000 ####[facility] [address] [place], [place], [id number] VISTA UDS PH 4 Normal [facility] Comment on above: Performed By: #### L 505.5000 ####[facility] [address] [place], [place], [id number] Emergency Department Summary on 01-03-2024 Emergency Department Summary Normal [facility] Tibia Fibula 2 Viewson 01-02 Tibia Fibula [address] [facility] Absolute lymphocyte countOrd ered By: Brody Maynard on 07-31-2023 Lymphocytes Auto (Unsp spec) [#/Vol] 0.39 10*3/uL 0.83-4.51 [facility] Automated lymphocyte count a s percentage of total leukocytesOrdered By: Brody Maynard on 07-31-2023 Lymphocytes/100 WBC Auto (Unsp spec) 7.1 % 19-41 [facility] Basophil percentageOrdered B y: Brody Maynard on 07-31-2023 Basophil percentage 12.6 g/dL 13.0-16.5 [facility] Basophil percentage 113 mg/dL 74-106 [facility] Basophil percentage 139 mmol/L 136-145 [facility] Basophil percentage 4.0 mmol/L 3.5-5.1 [facility] Basophil percentage 102 mmol/L 98-107 [facility] Basophils (Bld) [#/Vol] 5.5 10*3/uL 4.4-11.0 [facility] Basophils (Bld) [#/Vol] 4.7 10*3/uL 2.0-7.7 [facility] Basophils/100 WBC (Bld) 85.0 % 47-70 [facility] Basophils/100 WBC (Bld) 7.1 % 0-10 [facility] Basophils/100 WBC (Bld) 0.0 % 0-5 [facility] Basophils/100 WBC (Bld) 0.4 % 0-1 [facility] Determination of erythrocyte mean corpuscular volume (MCV)Ordered By: Brody Maynard on 07-31-2023 MCV (RBC) [Entitic vol] 98.4 fL 80-94 [facility] Erythrocyte distribution wid th ratioOrdered By: Brody Maynard on 07-31-2023 Erythrocyte distribution width (RBC) [Ratio] 13.2 % 11.6-14.6 [facility] Erythrocyte distribution wid th standard deviationOrdered By: Brody Maynard on 07-31-2023 Erythrocyte distribution width (RBC) [Entitic vol] 47.2 fL 35.1-43.9 [facility] Hematocrit Auto (Bld) [Volum e fraction]Ordered By: Brody Maynard on 07-31-2023 Hematocrit (Bld) [Volume fraction] 37.9 % 40-54 [facility] Immature granulocytes/100 WB C Auto (Bld)Ordered By: Brody Maynard on 07-31-2023 Immature granulocytes/100 WBC (Bld) 0.400 % 0.0-0.9 [facility] No Panel InformationOrdered By: Brody Maynard on 07-31-2023 32.7 pg 27.0-32.0 [facility] 33.2 g/dL 32-36 [facility] 284 K/mm3 150-450 [facility] 10.1 fl 6.2-12.0 [facility] 0 % 0-5 [facility] 77 mL/min >60 [facility] 93 mL/min >60 [facility] 60.90 ml/min [facility] 22.8 RATIO 10-20 [facility] 29.0 mmol/L 21.0-32.0 [facility] RBC Auto (Bld) [#/Vol]Ordere d By: Brody Maynard on 07-31-2023 RBC (Bld) [#/Vol] 3.85 10*6/uL 4.6-6.2 [facility] Serum or plasma calcium luis urement (mass/volume)Ordered By: Brody Maynard on 07-31-2023 Calcium [Mass/Vol] 8.6 mg/dL 8.5-10.1 [facility] Serum or plasma creatinine m easurement (mass/volume)Ordered By: Brody Maynard on 07-31-2023 Creatinine [Mass/Vol] 1.01 mg/dL 0.70-1.30 [facility] Serum or plasma urea nitroge n measurement (mass/volume)Ordered By: Brody Maynard on 07-31-2023 Urea nitrogen [Mass/Vol] 23 mg/dL 7-18 [facility] Thin prep Papanicolaou smear with manual screeningOrdered By: Brody Maynard on 07-31-2023 Thin prep Papanicolaou smear with manual screening 8 5-15 [facility] Absolute lymphocyte countOrd ered By: Андрей Ng on 07-30-2023 Lymphocytes Auto (Unsp spec) [#/Vol] 0.60 10*3/uL 0.83-4.51 [facility] Automated lymphocyte count a s percentage of total leukocytesOrdered By: Андрей Ng on 07-30-2023 Lymphocytes/100 WBC Auto (Unsp spec) 10.9 % 19-41 [facility] Base excessOrdered By: ED KS OVIDER on 07-30-2023 Base excess Calc (BldV) [Moles/Vol] 2 mmol/L -1.0-3.5 [facility] Basophil percentageOrdered B y: Андрей Ng on 07-30-2023 Basophil percentage 0 SEEN /hpf 0-5 [facility] Basophil percentage 13.3 g/dL 13.0-16.5 [facility] Basophil percentage 114 mg/dL 74-106 [facility] Basophil percentage 138 mmol/L 136-145 [facility] Basophil percentage 4.2 mmol/L 3.5-5.1 [facility] Basophil percentage 102 mmol/L 98-107 [facility] Basophils (Bld) [#/Vol] 5.5 10*3/uL 4.4-11.0 [facility] Basophils (Bld) [#/Vol] 4.2 10*3/uL 2.0-7.7 [facility] Basophils/100 WBC (Bld) 76.5 % 47-70 [facility] Basophils/100 WBC (Bld) 10.7 % 0-10 [facility] Basophils/100 WBC (Bld) 0.5 % 0-5 [facility] Basophils/100 WBC (Bld) 0.9 % 0-1 [facility] Bilirubin Test strip Ql (U)O rdered By: Андрей Ng on 07-30-2023 Bilirubin Ql (U) Negative Negative [facility] CO2 (BldV) [Moles/Vol]Ordere d By: ED PROVIDER on 07-30-2023 CO2 [Moles/Vol] 29 mmol/L 23-33 [facility] Determination of erythrocyte mean corpuscular volume (MCV)Ordered By: Андрей Ng on 07-30-2023 MCV (RBC) [Entitic vol] 99.3 fL 80-94 [facility] Erythrocyte distribution wid th ratioOrdered By: Андрей Ng on 07-30-2023 Erythrocyte distribution width (RBC) [Ratio] 13.2 % 11.6-14.6 [facility] Erythrocyte distribution wid th standard deviationOrdered By: Андрей Ng on 07-30-2023 Erythrocyte distribution width (RBC) [Entitic vol] 48.3 fL 35.1-43.9 [facility] Hematocrit Auto (Bld) [Volum e fraction]Ordered By: Андрей Ng on 07-30-2023 Hematocrit (Bld) [Volume fraction] 40.4 % 40-54 [facility] Immature granulocytes/100 WB C Auto (Bld)Ordered By: Андрей Ng on 07-30-2023 Immature granulocytes/100 WBC (Bld) 0.500 % 0.0-0.9 [facility] Ketones Test strip Ql (U)Ord ered By: Андрей Ng on 07-30-2023 Ketones Ql (U) Negative Negative [facility] Mucus LM Ql (Urine sed)Order ed By: Андрей Ng on 07-30-2023 Mucus Ql (Urine sed) 0 SEEN /hpf [facility] Nitrite Test strip Ql (U)Ord ered By: Андрей Ng on 07-30-2023 Nitrite Ql (U) Negative Negative [facility] No Panel InformationOrdered By: Андрей Ng on 07-30-2023 0 SEEN /hpf 0-5 [facility] Influenzae A [facility] 32.7 pg 27.0-32.0 [facility] 32.9 g/dL 32-36 [facility] 262 K/mm3 150-450 [facility] 9.4 fl 6.2-12.0 [facility] 0 % 0-5 [facility] 67 mL/min >60 [facility] 81 mL/min >60 [facility] 55.00 ml/min [facility] 22.8 RATIO 10-20 [facility] 15 pg/mL 3.0-78.0 [facility] 29.0 mmol/L 21.0-32.0 [facility] 218.8 pg/mL 0-100 [facility] No Panel InformationOrdered By: ED PROVIDER on 07-30-2023 LASHAE [facility] Not entered [facility] Cannula [facility] 3.0 [facility] 28 mmol/L 22-26 [facility] 69 % 50-70 [facility] PCO2 venousOrdered By: ED KS OVIDER on 07-30-2023 CO2 (BldV) [Partial pressure] 48.6 mm[Hg] 41-51 [facility] PO2 venousOrdered By: ED PRO VIDER on 07-30-2023 Oxygen (BldV) [Partial pressure] 38 mm[Hg] 25-40 [facility] Protein Test strip Ql (U)Ord ered By: Андрей Ng on 07-30-2023 Protein Ql (U) 30 mg/dl Negative [facility] RBC Auto (Bld) [#/Vol]Ordere d By: Андрей Ng on 07-30-2023 RBC (Bld) [#/Vol] 4.07 10*6/uL 4.6-6.2 [facility] Serum or plasma calcium luis urement (mass/volume)Ordered By: Андрей Ng on 07-30-2023 Calcium [Mass/Vol] 9.2 mg/dL 8.5-10.1 [facility] Serum or plasma creatinine m easurement (mass/volume)Ordered By: Андрей Ng on 07-30-2023 Creatinine [Mass/Vol] 1.14 mg/dL 0.70-1.30 [facility] Serum or plasma urea nitroge n measurement (mass/volume)Ordered By: Андрей Ng on 07-30-2023 Urea nitrogen [Mass/Vol] 26 mg/dL 7-18 [facility] Squamous epithelial cells de tection in urine sediment by light microscopyOrdered By: Андрей Ng on 07-30-2023 Epithelial cells.squamous LM Ql (Urine sed) 0 SEEN /hpf 0-5 [facility] Thin prep Papanicolaou smear with manual screeningOrdered By: Андрей Ng on 07-30-2023 Thin prep Papanicolaou smear with manual screening 7 5-15 [facility] Urine blood detectionOrdered By: Андрей Ng on 07-30-2023 RBC Ql (U) 10 /ul Negative [facility] Urine clarityOrdered By: Italia Ng on 07-30-2023 Clarity (U) Clear Clear [facility] Urine color determinationOrd ered By: Андрей Ng on 07-30-2023 Color (U) Yellow Yellow [facility] Urine glucose detectionOrder ed By: Андрей Ng on 07-30-2023 Glucose Ql (U) Normal mg/dl Normal [facility] Urine leukocyte esterase det ection by dipstickOrdered By: Андрей Ng on 07-30-2023 Leukocyte esterase Test strip Ql (U) Negative Negative [facility] Urine pHOrdered By: Андрей garland on 07-30-2023 pH (U) 7.0 [pH] 5.0 - 8.0 [facility] Urine sediment bacteria coun t by microscopy (number/high power field)Ordered By: Андрей Ng on 07-30-2023 Bacteria LM.HPF (Urine sed) [#/Area] 0 /[HPF] None Seen [facility] Urine specific gravity measu rementOrdered By: Андрей Ng on 07-30-2023 Specific gravity (U) [Rel density] 1.010 1.002-1.030 [facility] Urine urobilinogen measureme ntOrdered By: Андрей Ng on 07-30-2023 Urobilinogen Ql (U) Normal mg/dl Normal [facility] Venous blood pH measurementO rdered By: ED PROVIDER on 07-30-2023 pH (BldV) 7.36 [pH] 7.32-7.42 [facility] Basophil percentageOrdered B y: Андрей Cooley on 07-27-2023 Basophil percentage 12.8 g/dL 13.0-16.5 [facility] Basophil percentage 103 mg/dL 74-106 [facility] Basophil percentage 141 mmol/L 136-145 [facility] Basophil percentage 3.7 mmol/L 3.5-5.1 [facility] Basophil percentage 110 mmol/L 98-107 [facility] Basophils (Bld) [#/Vol] 6.8 10*3/uL 4.4-11.0 [facility] Determination of erythrocyte mean corpuscular volume (MCV)Ordered By: Андрей Cooley on 07-27-2023 MCV (RBC) [Entitic vol] 98.5 fL 80-94 [facility] Erythrocyte distribution wid th ratioOrdered By: Андрей Cooley on 07-27-2023 Erythrocyte distribution width (RBC) [Ratio] 13.1 % 11.6-14.6 [facility] Erythrocyte distribution wid th standard deviationOrdered By: Андрей Cooley on 07-27-2023 Erythrocyte distribution width (RBC) [Entitic vol] 46.7 fL 35.1-43.9 [facility] Hematocrit Auto (Bld) [Volum e fraction]Ordered By: Андрей Cooley on 07-27-2023 Hematocrit (Bld) [Volume fraction] 38.9 % 40-54 [facility] No Panel InformationOrdered By: Андрей Cooley on 07-27-2023 32.4 pg 27.0-32.0 [facility] 32.9 g/dL 32-36 [facility] 246 K/mm3 150-450 [facility] 10.1 fl 6.2-12.0 [facility] 56 mL/min >60 [facility] 68 mL/min >60 [facility] 26.5 RATIO 10-20 [facility] 29.0 mmol/L 21.0-32.0 [facility] RBC Auto (Bld) [#/Vol]Ordere d By: Андрей Cooley on 07-27-2023 RBC (Bld) [#/Vol] 3.95 10*6/uL 4.6-6.2 [facility] Serum or plasma calcium luis urement (mass/volume)Ordered By: Андрей Cooley on 07-27-2023 Calcium [Mass/Vol] 9.5 mg/dL 8.5-10.1 [facility] Serum or plasma creatinine m easurement (mass/volume)Ordered By: Андрей Cooley on 07-27-2023 Creatinine [Mass/Vol] 1.32 mg/dL 0.70-1.30 [facility] Serum or plasma urea nitroge n measurement (mass/volume)Ordered By: Андрей Cooley on 07-27-2023 Urea nitrogen [Mass/Vol] 35 mg/dL 7-18 [facility] Thin prep Papanicolaou smear with manual screeningOrdered By: Андрей Cooley on 07-27-2023 Thin prep Papanicolaou smear with manual screening 2 5-15 [facility] Absolute lymphocyte countOrd ered By: Андрей Cooley on 07-25-2023 Lymphocytes Auto (Unsp spec) [#/Vol] 1.22 10*3/uL 0.83-4.51 [facility] Automated lymphocyte count a s percentage of total leukocytesOrdered By: Андрей Cooley on 07-25-2023 Lymphocytes/100 WBC Auto (Unsp spec) 17.6 % 19-41 [facility] Basophil percentageOrdered B y: Андрей Cooley on 07-25-2023 Basophil percentage 14.3 g/dL 13.0-16.5 [facility] Basophil percentage 126 mg/dL 74-106 [facility] Basophil percentage 138 mmol/L 136-145 [facility] Basophil percentage 3.5 mmol/L 3.5-5.1 [facility] Basophil percentage 105 mmol/L 98-107 [facility] Basophils (Bld) [#/Vol] 6.9 10*3/uL 4.4-11.0 [facility] Basophils (Bld) [#/Vol] 4.9 10*3/uL 2.0-7.7 [facility] Basophils/100 WBC (Bld) 70.5 % 47-70 [facility] Basophils/100 WBC (Bld) 10.0 % 0-10 [facility] Basophils/100 WBC (Bld) 0.7 % 0-5 [facility] Basophils/100 WBC (Bld) 0.9 % 0-1 [facility] Determination of erythrocyte mean corpuscular volume (MCV)Ordered By: Андрей Cooley on 07-25-2023 MCV (RBC) [Entitic vol] 95.2 fL 80-94 [facility] Erythrocyte distribution wid th ratioOrdered By: Андрей Cooley on 07-25-2023 Erythrocyte distribution width (RBC) [Ratio] 12.7 % 11.6-14.6 [facility] Erythrocyte distribution wid th standard deviationOrdered By: Андрей Cooley on 07-25-2023 Erythrocyte distribution width (RBC) [Entitic vol] 44.9 fL 35.1-43.9 [facility] Hematocrit Auto (Bld) [Volum e fraction]Ordered By: Андрей Cooley on 07-25-2023 Hematocrit (Bld) [Volume fraction] 41.9 % 40-54 [facility] Immature granulocytes/100 WB C Auto (Bld)Ordered By: Андрей Cooley on 07-25-2023 Immature granulocytes/100 WBC (Bld) 0.300 % 0.0-0.9 [facility] No Panel InformationOrdered By: Андрей Cooley on 07-25-2023 32.5 pg 27.0-32.0 [facility] 34.1 g/dL 32-36 [facility] 245 K/mm3 150-450 [facility] 9.7 fl 6.2-12.0 [facility] 0 % 0-5 [facility] 62 mL/min >60 [facility] 75 mL/min >60 [facility] 39.28 ml/min [facility] 13.2 RATIO 10-20 [facility] 25.0 mmol/L 21.0-32.0 [facility] RBC Auto (Bld) [#/Vol]Ordere d By: Андрей Cooley on 07-25-2023 RBC (Bld) [#/Vol] 4.40 10*6/uL 4.6-6.2 [facility] Serum or plasma calcium luis urement (mass/volume)Ordered By: Андрей Cooley on 07-25-2023 Calcium [Mass/Vol] 9.3 mg/dL 8.5-10.1 [facility] Serum or plasma creatinine m easurement (mass/volume)Ordered By: Андрей Cooley on 07-25-2023 Creatinine [Mass/Vol] 1.21 mg/dL 0.70-1.30 [facility] Serum or plasma urea nitroge n measurement (mass/volume)Ordered By: Андрей Cooley on 07-25-2023 Urea nitrogen [Mass/Vol] 16 mg/dL 7-18 [facility] Thin prep Papanicolaou smear with manual screeningOrdered By: Андрей Cooley on 07-25-2023 Thin prep Papanicolaou smear with manual screening 8 5-15 [facility] Absolute lymphocyte countOrd ered By: Raul Melchor on 07-24-2023 Lymphocytes Auto (Unsp spec) [#/Vol] 1.14 10*3/uL 0.83-4.51 [facility] Automated lymphocyte count a s percentage of total leukocytesOrdered By: Raul Melchor on 07-24-2023 Lymphocytes/100 WBC Auto (Unsp spec) 16.0 % 19-41 [facility] Basophil percentageOrdered B y: Raul Melchor on 07-24-2023 Basophils/100 WBC (Bld) 1.0 % 0-1 [facility] Chloride [Moles/Vol] 103 mmol/L 98-107 [facility] Eosinophils/100 WBC (Bld) 1.1 % 0-5 [facility] Glucose [Mass/Vol] 134 mg/dL 74-106 [facility] Comment on above: Fasting Glucose resu lt greater than or equal to 126 mg/dL suggests DIABETES MELLITUS per A.D.A. criteria. Hemoglobin (Bld) [Mass/Vol] 16.2 g/dL 13.0-16.5 [facility] Monocytes/100 WBC (Bld) 7.3 % 0-10 [facility] Neutrophils (Bld) [#/Vol] 5.3 10*3/uL 2.0-7.7 [facility] Neutrophils/100 WBC (Bld) 74.0 % 47-70 [facility] Potassium [Moles/Vol] 3.8 mmol/L 3.5-5.1 [facility] Comment on above: Moderate Hemolysis, Result may be falsely increased. Sodium [Moles/Vol] 139 mmol/L 136-145 [facility] WBC (Bld) [#/Vol] 7.1 10*3/uL 4.4-11.0 [facility] Determination of erythrocyte mean corpuscular volume (MCV)Ordered By: Raul eMlchor on 07-24-2023 MCV (RBC) [Entitic vol] 94.8 fL 80-94 [facility] Erythrocyte distribution wid th ratioOrdered By: Raul Melchor on 07-24-2023 Erythrocyte distribution width (RBC) [Ratio] 12.8 % 11.6-14.6 [facility] Erythrocyte distribution wid th standard deviationOrdered By: Raul Melchor on 07-24-2023 Erythrocyte distribution width (RBC) [Entitic vol] 44.3 fL 35.1-43.9 [facility] Hematocrit Auto (Bld) [Volum e fraction]Ordered By: Raul Melchor on 07-24-2023 Hematocrit (Bld) [Volume fraction] 47.4 % 40-54 [facility] Immature granulocytes/100 WB C Auto (Bld)Ordered By: Raul Melchor on 07-24-2023 Immature granulocytes/100 WBC (Bld) 0.600 % 0.0-0.9 [facility] Comment on above: IG% - Immature Granu locytes (promyelocytes, myelocytes and metamyelocytes) > 1% indicates that a LEFT SHIFT is Present. Laboratory - Chemistry and C hemistry - challengeOrdered By: Raul Melchor on 07-24-2023 CO2 [Moles/Vol] 28.0 mmol/L 21.0-32.0 [facility] Urea nitrogen/Creatinine [Mass ratio] 14.1 mg/mg 10-20 [facility] Laboratory - Hematology and Cell countsOrdered By: Raul Melchor on 07-24-2023 MCH (RBC) [Entitic mass] 32.4 pg 27.0-32.0 [facility] MCHC (RBC) [Mass/Vol] 34.2 g/dL 32-36 [facility] Nucleated RBC/100 WBC (Bld) [Ratio] 0 % 0-5 [facility] Platelets (Bld) [#/Vol] 285 10*3/uL 150-450 [facility] No Panel InformationOrdered By: Raul Melchor on 07-24-2023 Estimated Creatinine Clearance Calc 48.70 ml/min [facility] Estimated GFR (MDRD) Amer 71 mL/min >60 [facility] Comment on above: GFR Calc Estimated GFR (MDRD) Non-Af Amer 58 mL/min >60 [facility] Comment on above: Non- GFR Calc Platelet mean volume Ye-Ec ker (Bld) [Entitic vol]Ordered By: Raul Melchor on 07-24-2023 Platelet mean volume (Bld) [Entitic vol] 9.8 fL 6.2-12.0 [facility] RBC Auto (Bld) [#/Vol]Ordere d By: Raul Melchor on 07-24-2023 RBC (Bld) [#/Vol] 5.00 10*6/uL 4.6-6.2 [facility] Serum or plasma calcium luis urement (mass/volume)Ordered By: Raul Melchor on 07-24-2023 Calcium [Mass/Vol] 9.8 mg/dL 8.5-10.1 [facility] Serum or plasma creatinine m easurement (mass/volume)Ordered By: Raul Melchor on 07-24-2023 Creatinine [Mass/Vol] 1.28 mg/dL 0.70-1.30 [facility] Comment on above: The validity of the calculated GFR & GFRAA in patients over 70 years has not been determined. Clinical correlation is essential. Serum or plasma urea nitroge n measurement (mass/volume)Ordered By: Raul Melchor on 07-24-2023 Urea nitrogen [Mass/Vol] 18 mg/dL 7-18 [facility] Thin prep Papanicolaou smear with manual screeningOrdered By: Raul Melchor on 07-24-2023 Thin prep Papanicolaou smear with manual screening 8 5-15 [facility] UAon 07-10-2023 Color (U) Yellow Normal [facility] ([place]) Comment on above: Performed By: #### U A #### [address] [address] Glucose (U) [Mass/Vol] Negative Normal Negative [facility] ([place]) Comment on above: Performed By: #### U A #### [address] [address] Ketones Ql (U) Negative Normal Neg-Trace [facility] ([place]) Comment on above: Performed By: #### U A #### [place] [address] UA Appear Clear Normal Clear [facility] ([place]) Comment on above: Performed By: #### U A #### [address] [address] UA Blood Negative Normal Neg-Trace [facility] ([place]) Comment on above: Performed By: #### U A #### [place] [address] UA Leuk Est Negative Normal Negative [facility] ([place]) Comment on above: Performed By: #### U A #### [place] [address] UA Nitrite Negative Normal Negative [facility] ([place]) Comment on above: Performed By: #### U A #### [place] [address] UA pH 5.5 Normal 5.0 - 8.0 [facility] ([place]) Comment on above: Performed By: #### U A #### [address] [address] UA Protein 30 mg/dL Normal Negative [facility] ([place]) Comment on above: Performed By: #### U A #### [place] [address] UA Spec Grav 1.020 Normal 1.006-1.029 [facility] ([place]) Comment on above: Performed By: #### U A #### [place] [address] UA Specimen Type Void Normal [facility] ([place]) Comment on above: Performed By: #### U A #### [place] [address] UA Urobilinogen 0.2 E.U./dL Normal 0.2-1.0 [facility] ([place]) Comment on above: Performed By: #### U A #### [place] [address] Urobilinogen (U) [Mass/Vol] Negative Normal Neg-Trace [facility] ([place]) Comment on above: Performed By: #### U A #### [facility] [address] [place] [address] Absolute lymphocyte countOrd ered By: Daija Morton on 06-14-2023 Lymphocytes Auto (Unsp spec) [#/Vol] 1.09 10*3/uL 0.83-4.51 [facility] Basophil percentageOrdered B y: Daija Ganhuan on 06-14-2023 Basophil percentage 108 mg/dL 74-106 [facility] Basophil percentage 139 mmol/L 136-145 [facility] Basophil percentage 4.2 mmol/L 3.5-5.1 [facility] Basophil percentage 104 mmol/L 98-107 [facility] Basophils (Bld) [#/Vol] 6.5 10*3/uL 4.4-11.0 [facility] Basophils (Bld) [#/Vol] 4.7 10*3/uL 2.0-7.7 [facility] Basophils/100 WBC (Bld) 1.4 % 0-1 [facility] Basophils/100 WBC (Bld) 72.2 % 47-70 [facility] Basophils/100 WBC (Bld) 2.0 % 0-5 [facility] Chloride [Moles/Vol] 104 mmol/L 98-107 [facility] Eosinophils/100 WBC (Bld) 2.0 % 0-5 [facility] Glucose [Mass/Vol] 108 mg/dL 74-106 [facility] Comment on above: Fasting Glucose resu lt from 100 to 125 mg/dL suggests IMPAIRED HOMEOSTASIS per A.D.A. criteria. Neutrophils (Bld) [#/Vol] 4.7 10*3/uL 2.0-7.7 [facility] Neutrophils/100 WBC (Bld) 72.2 % 47-70 [facility] Potassium [Moles/Vol] 4.2 mmol/L 3.5-5.1 [facility] Sodium [Moles/Vol] 139 mmol/L 136-145 [facility] WBC (Bld) [#/Vol] 6.5 10*3/uL 4.4-11.0 [facility] Blood erythrocytes count (nu mber/volume)Ordered By: Daija Morton on 06-14-2023 RBC (Bld) [#/Vol] 4.73 10*6/uL 4.6-6.2 [facility] Blood hemoglobin measurement (mass/volume)Ordered By: Daija Morton on 06-14-2023 Hemoglobin (Bld) [Mass/Vol] 15.8 g/dL 13.0-16.5 [facility] Blood lymphocytes/100 leukoc ytesOrdered By: Daija Morton on 06-14-2023 Lymphocytes/100 WBC (Bld) 16.8 % 19-41 [facility] Blood monocytes/100 leukocyt esOrdered By: Daija Morton on 06-14-2023 Monocytes/100 WBC (Bld) 7.1 % 0-10 [facility] Blood platelet mean volumeOr dered By: Daija Morton on 06-14-2023 Platelet mean volume (Bld) [Entitic vol] 9.9 fL 6.2-12.0 [facility] Determination of erythrocyte mean corpuscular volume (MCV)Ordered By: Daija Morton on 06-14-2023 MCV (RBC) [Entitic vol] 96.6 fL 80-94 [facility] Hematocrit Auto (Bld) [Volum e fraction]Ordered By: Daija Morton on 06-14-2023 Hematocrit (Bld) [Volume fraction] 45.7 % 40-54 [facility] Laboratory - Chemistry and C hemistry - challengeOrdered By: Daija Morton on 06-14-2023 CO2 [Moles/Vol] 30.0 mmol/L 21.0-32.0 [facility] Urea nitrogen/Creatinine [Mass ratio] 16.1 mg/mg 10-20 [facility] Laboratory - Hematology and Cell countsOrdered By: Daijara Morton on 06-14-2023 Erythrocyte distribution width (RBC) [Entitic vol] 46.5 fL 35.1-43.9 [facility] Erythrocyte distribution width (RBC) [Ratio] 13.1 % 11.6-14.6 [facility] Immature granulocytes/100 WBC (Bld) 0.500 % 0.0-0.9 [facility] Comment on above: IG% - Immature Granu locytes (promyelocytes, myelocytes and metamyelocytes) > 1% indicates that a LEFT SHIFT is Present. MCH (RBC) [Entitic mass] 33.4 pg 27.0-32.0 [facility] Nucleated RBC/100 WBC (Bld) [Ratio] 0 % 0-5 [facility] MCHC Auto (RBC) [Mass/Vol]Or dered By: Daija Morton on 06-14-2023 MCHC (RBC) [Mass/Vol] 34.6 g/dL 32-36 [facility] No Panel InformationOrdered By: Daija Morton on 06-14-2023 Estimated GFR (MDRD) Amer 73 mL/min >60 [facility] Comment on above: GFR Calc Estimated GFR (MDRD) Non-Af Amer 61 mL/min >60 [facility] Comment on above: Non- GFR Calc 33.4 pg 27.0-32.0 [facility] 13.1 % 11.6-14.6 [facility] 46.5 fl 35.1-43.9 [facility] 0.500 % 0.0-0.9 [facility] 0 % 0-5 [facility] 61 mL/min >60 [facility] 73 mL/min >60 [facility] 16.1 RATIO 10-20 [facility] 30.0 mmol/L 21.0-32.0 [facility] Platelets bldOrdered By: Nemesio Morton on 06-14-2023 Platelets (Bld) [#/Vol] 285 10*3/uL 150-450 [facility] Serum or plasma calcium luis urement (mass/volume)Ordered By: Daija Morton on 06-14-2023 Calcium [Mass/Vol] 9.8 mg/dL 8.5-10.1 [facility] Serum or plasma creatinine m easurement (mass/volume)Ordered By: Daija Morton on 06-14-2023 Creatinine [Mass/Vol] 1.24 mg/dL 0.70-1.30 [facility] Comment on above: The validity of the calculated GFR & GFRAA in patients over 70 years has not been determined. Clinical correlation is essential. Serum or plasma urea nitroge n measurement (mass/volume)Ordered By: Daija Morton on 06-14-2023 Urea nitrogen [Mass/Vol] 20 mg/dL 7-18 [facility] Thin prep Papanicolaou smear with manual screeningOrdered By: Daija Morton on 06-14-2023 Thin prep Papanicolaou smear with manual screening 5 5-15 [facility] Basophil percentageOrdered B y: Андрей Cooley on 05-19-2023 Basophil percentage 100 mg/dL 74-106 [facility] Basophil percentage 6.5 g/dL 6.4-8.2 [facility] Basophil percentage 0.30 mg/dL 0.20-1.00 [facility] Basophil percentage 141 mmol/L 136-145 [facility] Basophil percentage 3.6 mmol/L 3.5-5.1 [facility] Basophil percentage 109 mmol/L 98-107 [facility] Basophils (Bld) [#/Vol] 6.2 10*3/uL 4.4-11.0 [facility] Bilirubin [Mass/Vol] 0.30 mg/dL 0.20-1.00 [facility] Comment on above: For patients on eltr ombopag therapy, use of [employer] [place] TBIL is not recommended. Chloride [Moles/Vol] 109 mmol/L 98-107 [facility] Glucose [Mass/Vol] 100 mg/dL 74-106 [facility] Comment on above: Fasting Glucose resu lt from 100 to 125 mg/dL suggests IMPAIRED HOMEOSTASIS per A.D.A. criteria. Potassium [Moles/Vol] 3.6 mmol/L 3.5-5.1 [facility] Protein [Mass/Vol] 6.5 g/dL 6.4-8.2 [facility] Sodium [Moles/Vol] 141 mmol/L 136-145 [facility] WBC (Bld) [#/Vol] 6.2 10*3/uL 4.4-11.0 [facility] Blood erythrocytes count (nu mber/volume)Ordered By: Андрей Cooley on 05-19-2023 RBC (Bld) [#/Vol] 4.24 10*6/uL 4.6-6.2 [facility] Blood hemoglobin measurement (mass/volume)Ordered By: Андрей Cooley on 05-19-2023 Hemoglobin (Bld) [Mass/Vol] 13.8 g/dL 13.0-16.5 [facility] Blood platelet mean volumeOr dered By: Андрей Cooley on 05-19-2023 Platelet mean volume (Bld) [Entitic vol] 9.9 fL 6.2-12.0 [facility] Determination of erythrocyte mean corpuscular volume (MCV)Ordered By: Андрей Cooley on 05-19-2023 MCV (RBC) [Entitic vol] 99.5 fL 80-94 [facility] Hematocrit Auto (Bld) [Volum e fraction]Ordered By: Андрей Cooley on 05-19-2023 Hematocrit (Bld) [Volume fraction] 42.2 % 40-54 [facility] Laboratory - Chemistry and C hemistry - challengeOrdered By: Андрей Cooley on 05-19-2023 ALP [Catalytic activity/Vol] 72 U/L 45-117 [facility] ALT [Catalytic activity/Vol] 33 U/L 16-61 [facility] CO2 [Moles/Vol] 29.0 mmol/L 21.0-32.0 [facility] Globulin (S) [Mass/Vol] 3.1 g/dL 2.2-4.2 [facility] Urea nitrogen/Creatinine [Mass ratio] 18.6 mg/mg 10-20 [facility] Laboratory - Hematology and Cell countsOrdered By: Андрей Cooley on 05-19-2023 Erythrocyte distribution width (RBC) [Entitic vol] 52.4 fL 35.1-43.9 [facility] Erythrocyte distribution width (RBC) [Ratio] 14.3 % 11.6-14.6 [facility] MCH (RBC) [Entitic mass] 32.5 pg 27.0-32.0 [facility] MCHC Auto (RBC) [Mass/Vol]Or dered By: Андрей Cooley on 05-19-2023 MCHC (RBC) [Mass/Vol] 32.7 g/dL 32-36 [facility] No Panel InformationOrdered By: Андрей Cooley on 05-19-2023 Estimated GFR (MDRD) Amer 78 mL/min >60 [facility] Comment on above: GFR Calc Estimated GFR (MDRD) Non-Af Amer 64 mL/min >60 [facility] Comment on above: Non- GFR Calc 32.5 pg 27.0-32.0 [facility] 14.3 % 11.6-14.6 [facility] 52.4 fl 35.1-43.9 [facility] 64 mL/min >60 [facility] 78 mL/min >60 [facility] 18.6 RATIO 10-20 [facility] 3.1 g/dL 2.2-4.2 [facility] 72 U/L 45-117 [facility] 33 U/L 16-61 [facility] 29.0 mmol/L 21.0-32.0 [facility] Platelets bldOrdered By: Italia Cooley on 05-19-2023 Platelets (Bld) [#/Vol] 284 10*3/uL 150-450 [facility] Serum or plasma albumin luis urement (mass/volume)Ordered By: Андрей Cooley on 05-19-2023 Albumin [Mass/Vol] 3.4 g/dL 3.2-5.0 [facility] Serum or plasma albumin/glob ulin mass ratioOrdered By: Андрей Cooley on 05-19-2023 Albumin/Globulin [Mass ratio] 1.1 {ratio} 0.9-2.4 [facility] Serum or plasma calcium luis urement (mass/volume)Ordered By: Андрей Cooley on 05-19-2023 Calcium [Mass/Vol] 8.7 mg/dL 8.5-10.1 [facility] Serum or plasma creatinine m easurement (mass/volume)Ordered By: Андрей Cooley on 05-19-2023 Creatinine [Mass/Vol] 1.18 mg/dL 0.70-1.30 [facility] Comment on above: The validity of the calculated GFR & GFRAA in patients over 70 years has not been determined. Clinical correlation is essential. Serum or plasma urea nitroge n measurement (mass/volume)Ordered By: Андрей Cooley on 05-19-2023 Urea nitrogen [Mass/Vol] 22 mg/dL 7-18 [facility] Thin prep Papanicolaou smear with manual screeningOrdered By: Андрей Cooley on 05-19-2023 Thin prep Papanicolaou smear with manual screening 17 U/L 15-37 [facility] Thin prep Papanicolaou smear with manual screening 3 5-15 [facility] Basophil percentageOrdered B y: Андрей Cooley on 04-19-2023 Basophil percentage 92 mg/dL 74-106 [facility] Basophil percentage 6.8 g/dL 6.4-8.2 [facility] Basophil percentage 0.20 mg/dL 0.20-1.00 [facility] Basophil percentage 140 mmol/L 136-145 [facility] Basophil percentage 4.0 mmol/L 3.5-5.1 [facility] Basophil percentage 105 mmol/L 98-107 [facility] Basophils (Bld) [#/Vol] 6.2 10*3/uL 4.4-11.0 [facility] Bilirubin [Mass/Vol] 0.20 mg/dL 0.20-1.00 [facility] Comment on above: For patients on eltr ombopag therapy, use of [employer] [place] TBIL is not recommended. Chloride [Moles/Vol] 105 mmol/L 98-107 [facility] Glucose [Mass/Vol] 92 mg/dL 74-106 [facility] Potassium [Moles/Vol] 4.0 mmol/L 3.5-5.1 [facility] Protein [Mass/Vol] 6.8 g/dL 6.4-8.2 [facility] Sodium [Moles/Vol] 140 mmol/L 136-145 [facility] WBC (Bld) [#/Vol] 6.2 10*3/uL 4.4-11.0 [facility] Blood erythrocytes count (nu mber/volume)Ordered By: Андрей Cooley on 04-19-2023 RBC (Bld) [#/Vol] 4.26 10*6/uL 4.6-6.2 [facility] Blood hemoglobin measurement (mass/volume)Ordered By: Андрей Cooley on 04-19-2023 Hemoglobin (Bld) [Mass/Vol] 13.6 g/dL 13.0-16.5 [facility] Blood platelet mean volumeOr dered By: Андрей Cooley on 04-19-2023 Platelet mean volume (Bld) [Entitic vol] 9.7 fL 6.2-12.0 [facility] Determination of erythrocyte mean corpuscular volume (MCV)Ordered By: Андрйе Cooley on 04-19-2023 MCV (RBC) [Entitic vol] 99.5 fL 80-94 [facility] Hematocrit Auto (Bld) [Volum e fraction]Ordered By: Андрей Cooley on 04-19-2023 Hematocrit (Bld) [Volume fraction] 42.4 % 40-54 [facility] Laboratory - Chemistry and C hemistry - challengeOrdered By: Андрей Cooley on 04-19-2023 ALP [Catalytic activity/Vol] 82 U/L 45-117 [facility] ALT [Catalytic activity/Vol] 27 U/L 16-61 [facility] CO2 [Moles/Vol] 29.0 mmol/L 21.0-32.0 [facility] Globulin (S) [Mass/Vol] 3.5 g/dL 2.2-4.2 [facility] Urea nitrogen/Creatinine [Mass ratio] 22.2 mg/mg 10-20 [facility] Laboratory - Hematology and Cell countsOrdered By: Андрей Cooley on 04-19-2023 Erythrocyte distribution width (RBC) [Entitic vol] 51.8 fL 35.1-43.9 [facility] Erythrocyte distribution width (RBC) [Ratio] 14.4 % 11.6-14.6 [facility] MCH (RBC) [Entitic mass] 31.9 pg 27.0-32.0 [facility] MCHC Auto (RBC) [Mass/Vol]Or dered By: Андрей Cooley on 04-19-2023 MCHC (RBC) [Mass/Vol] 32.1 g/dL 32-36 [facility] No Panel InformationOrdered By: Андрей Cooley on 04-19-2023 Estimated GFR (MDRD) Amer 86 mL/min >60 [facility] Comment on above: GFR Calc Estimated GFR (MDRD) Non-Af Amer 71 mL/min >60 [facility] Comment on above: Non- GFR Calc 31.9 pg 27.0-32.0 [facility] 14.4 % 11.6-14.6 [facility] 51.8 fl 35.1-43.9 [facility] 71 mL/min >60 [facility] 86 mL/min >60 [facility] 22.2 RATIO 10-20 [facility] 3.5 g/dL 2.2-4.2 [facility] 82 U/L 45-117 [facility] 27 U/L 16-61 [facility] 29.0 mmol/L 21.0-32.0 [facility] Platelets bldOrdered By: Italia Cooley on 04-19-2023 Platelets (Bld) [#/Vol] 382 10*3/uL 150-450 [facility] Serum or plasma albumin luis urement (mass/volume)Ordered By: Андрей Cooley on 04-19-2023 Albumin [Mass/Vol] 3.3 g/dL 3.2-5.0 [facility] Serum or plasma albumin/glob ulin mass ratioOrdered By: Андрей Cooley on 04-19-2023 Albumin/Globulin [Mass ratio] 0.9 {ratio} 0.9-2.4 [facility] Serum or plasma calcium luis urement (mass/volume)Ordered By: Андрей Cooley on 04-19-2023 Calcium [Mass/Vol] 9.1 mg/dL 8.5-10.1 [facility] Serum or plasma creatinine m easurement (mass/volume)Ordered By: Андрей Cooley on 04-19-2023 Creatinine [Mass/Vol] 1.08 mg/dL 0.70-1.30 [facility] Comment on above: The validity of the calculated GFR & GFRAA in patients over 70 years has not been determined. Clinical correlation is essential. Serum or plasma urea nitroge n measurement (mass/volume)Ordered By: Андрей Cooley on 04-19-2023 Urea nitrogen [Mass/Vol] 24 mg/dL 7-18 [facility] Thin prep Papanicolaou smear with manual screeningOrdered By: Андрей Cooley on 04-19-2023 Thin prep Papanicolaou smear with manual screening 19 U/L 15-37 [facility] Thin prep Papanicolaou smear with manual screening 6 5-15 [facility] Whole blood hemoglobin A1c/t otal hemoglobin ratio (mass fraction)Ordered By: Андрей Cooley on 04-17-2023 HbA1c (Bld) [Mass fraction] 5.2 % 3.8-5.6 [facility] Comment on above: Normal < 5.7 % Predi abetic 5.7 - 6.4 % Diabetic >or= 6.5 % Please note range changes. Basophil percentageOrdered B y: Андрей Cooley on 04-12-2023 Basophil percentage 92 mg/dL 74-106 [facility] Basophil percentage 6.4 g/dL 6.4-8.2 [facility] Basophil percentage 0.10 mg/dL 0.20-1.00 [facility] Basophil percentage 139 mmol/L 136-145 [facility] Basophil percentage 4.1 mmol/L 3.5-5.1 [facility] Basophil percentage 107 mmol/L 98-107 [facility] Basophils (Bld) [#/Vol] 7.8 10*3/uL 4.4-11.0 [facility] Bilirubin [Mass/Vol] 0.10 mg/dL 0.20-1.00 [facility] Comment on above: For patients on eltr ombopag therapy, use of [employer] [place] TBIL is not recommended. Chloride [Moles/Vol] 107 mmol/L 98-107 [facility] Glucose [Mass/Vol] 92 mg/dL 74-106 [facility] Potassium [Moles/Vol] 4.1 mmol/L 3.5-5.1 [facility] Protein [Mass/Vol] 6.4 g/dL 6.4-8.2 [facility] Sodium [Moles/Vol] 139 mmol/L 136-145 [facility] WBC (Bld) [#/Vol] 7.8 10*3/uL 4.4-11.0 [facility] Blood erythrocytes count (nu mber/volume)Ordered By: Андрей Cooley on 04-12-2023 RBC (Bld) [#/Vol] 4.04 10*6/uL 4.6-6.2 [facility] Blood hemoglobin measurement (mass/volume)Ordered By: Андрей Cooley on 04-12-2023 Hemoglobin (Bld) [Mass/Vol] 13.2 g/dL 13.0-16.5 [facility] Blood platelet mean volumeOr dered By: Андрей Cooley on 04-12-2023 Platelet mean volume (Bld) [Entitic vol] 9.7 fL 6.2-12.0 [facility] Determination of erythrocyte mean corpuscular volume (MCV)Ordered By: Андрей Cooley on 04-12-2023 MCV (RBC) [Entitic vol] 97.5 fL 80-94 [facility] Hematocrit Auto (Bld) [Volum e fraction]Ordered By: Андрей Cooley on 04-12-2023 Hematocrit (Bld) [Volume fraction] 39.4 % 40-54 [facility] [facility] - Chemistry and C hemistry - challengeOrdered By: Андрей Cooley on 04-12-2023 ALP [Catalytic activity/Vol] 88 U/L 45-117 [facility] ALT [Catalytic activity/Vol] 32 U/L 16-61 [facility] CO2 [Moles/Vol] 26.0 mmol/L 21.0-32.0 [facility] Globulin (S) [Mass/Vol] 3.4 g/dL 2.2-4.2 [facility] Urea nitrogen/Creatinine [Mass ratio] 20.2 mg/mg 10-20 [facility] - Hematology and Cell countsOrdered By: Андрей Cooley on 04-12-2023 Erythrocyte distribution width (RBC) [Entitic vol] 49.3 fL 35.1-43.9 [facility] Erythrocyte distribution width (RBC) [Ratio] 13.8 % 11.6-14.6 [facility] MCH (RBC) [Entitic mass] 32.7 pg 27.0-32.0 [facility] MCHC Auto (RBC) [Mass/Vol]Or dered By: Андрей Cooley on 04-12-2023 MCHC (RBC) [Mass/Vol] 33.5 g/dL 32-36 [facility] No Panel InformationOrdered By: Андрей Cooley on 04-12-2023 Estimated GFR (MDRD) Amer 77 mL/min >60 [facility] Comment on above: GFR Calc Estimated GFR (MDRD) Non-Af Amer 64 mL/min >60 [facility] Comment on above: Non- GFR Calc 32.7 pg 27.0-32.0 [facility] 13.8 % 11.6-14.6 [facility] 49.3 fl 35.1-43.9 [facility] 64 mL/min >60 [facility] 77 mL/min >60 [facility] 20.2 RATIO 10-20 [facility] 3.4 g/dL 2.2-4.2 [facility] 88 U/L 45-117 [facility] 32 U/L 16-61 [facility] 26.0 mmol/L 21.0-32.0 [facility] Platelets bldOrdered By: Italia Cooley on 04-12-2023 Platelets (Bld) [#/Vol] 385 10*3/uL 150-450 [facility] Serum or plasma albumin luis urement (mass/volume)Ordered By: Андрей Cooley on 04-12-2023 Albumin [Mass/Vol] 3.0 g/dL 3.2-5.0 [facility] Serum or plasma albumin/glob ulin mass ratioOrdered By: Андрей Cooley on 04-12-2023 Albumin/Globulin [Mass ratio] 0.9 {ratio} 0.9-2.4 [facility] Serum or plasma calcium luis urement (mass/volume)Ordered By: Андрей Cooley on 04-12-2023 Calcium [Mass/Vol] 8.7 mg/dL 8.5-10.1 [facility] Serum or plasma creatinine m easurement (mass/volume)Ordered By: Андрей Cooley on 04-12-2023 Creatinine [Mass/Vol] 1.19 mg/dL 0.70-1.30 [facility] Comment on above: The validity of the calculated GFR & GFRAA in patients over 70 years has not been determined. Clinical correlation is essential. Serum or plasma urea nitroge n measurement (mass/volume)Ordered By: Андрей Cooley on 04-12-2023 Urea nitrogen [Mass/Vol] 24 mg/dL 7-18 [facility] Thin prep Papanicolaou smear with manual screeningOrdered By: Андрей Cooley on 04-12-2023 Thin prep Papanicolaou smear with manual screening 21 U/L 15-37 [facility] Thin prep Papanicolaou smear with manual screening 6 5-15 [facility] Basophil percentageOrdered B y: Андрей Cooley on 04-05-2023 Basophil percentage 105 mg/dL 74-106 [facility] Basophil percentage 6.7 g/dL 6.4-8.2 [facility] Basophil percentage 0.20 mg/dL 0.20-1.00 [facility] Basophil percentage 139 mmol/L 136-145 [facility] Basophil percentage 3.9 mmol/L 3.5-5.1 [facility] Basophil percentage 105 mmol/L 98-107 [facility] Basophils (Bld) [#/Vol] 5.8 10*3/uL 4.4-11.0 [facility] Bilirubin [Mass/Vol] 0.20 mg/dL 0.20-1.00 [facility] Comment on above: For patients on eltr ombopag therapy, use of [employer] [place] TBIL is not recommended. Chloride [Moles/Vol] 105 mmol/L 98-107 [facility] Glucose [Mass/Vol] 105 mg/dL 74-106 [facility] Comment on above: Fasting Glucose resu lt from 100 to 125 mg/dL suggests IMPAIRED HOMEOSTASIS per A.D.A. criteria. Potassium [Moles/Vol] 3.9 mmol/L 3.5-5.1 [facility] Protein [Mass/Vol] 6.7 g/dL 6.4-8.2 [facility] Sodium [Moles/Vol] 139 mmol/L 136-145 [facility] WBC (Bld) [#/Vol] 5.8 10*3/uL 4.4-11.0 [facility] Blood erythrocytes count (nu mber/volume)Ordered By: Андрей Cooley on 04-05-2023 RBC (Bld) [#/Vol] 4.40 10*6/uL 4.6-6.2 [facility] Blood hemoglobin measurement (mass/volume)Ordered By: Андрей Cooley on 04-05-2023 Hemoglobin (Bld) [Mass/Vol] 13.9 g/dL 13.0-16.5 [facility] Blood platelet mean volumeOr dered By: Андрей Cooley on 04-05-2023 Platelet mean volume (Bld) [Entitic vol] 9.5 fL 6.2-12.0 [facility] Determination of erythrocyte mean corpuscular volume (MCV)Ordered By: Андрей Cooley on 04-05-2023 MCV (RBC) [Entitic vol] 96.8 fL 80-94 [facility] Hematocrit Auto (Bld) [Volum e fraction]Ordered By: Андрей Cooley on 04-05-2023 Hematocrit (Bld) [Volume fraction] 42.6 % 40-54 [facility] - Chemistry and C hemistry - challengeOrdered By: Андрей Cooley on 04-05-2023 ALP [Catalytic activity/Vol] 60 U/L 45-117 [facility] ALT [Catalytic activity/Vol] 54 U/L 16-61 [facility] CO2 [Moles/Vol] 28.0 mmol/L 21.0-32.0 [facility] Globulin (S) [Mass/Vol] 3.8 g/dL 2.2-4.2 [facility] Urea nitrogen/Creatinine [Mass ratio] 22.0 mg/mg 10-20 [facility] - Hematology and Cell countsOrdered By: Андрей Cooley on 04-05-2023 Erythrocyte distribution width (RBC) [Entitic vol] 50.1 fL 35.1-43.9 [facility] Erythrocyte distribution width (RBC) [Ratio] 14.0 % 11.6-14.6 [facility] MCH (RBC) [Entitic mass] 31.6 pg 27.0-32.0 [facility] MCHC Auto (RBC) [Mass/Vol]Or dered By: Андрей Cooley on 04-05-2023 MCHC (RBC) [Mass/Vol] 32.6 g/dL 32-36 [facility] No Panel InformationOrdered By: Андрей Cooley on 04-05-2023 Estimated GFR (MDRD) Amer 85 mL/min >60 [facility] Comment on above: GFR Calc Estimated GFR (MDRD) Non-Af Amer 70 mL/min >60 [facility] Comment on above: Non- GFR Calc 31.6 pg 27.0-32.0 [facility] 14.0 % 11.6-14.6 [facility] 50.1 fl 35.1-43.9 [facility] 70 mL/min >60 [facility] 85 mL/min >60 [facility] 22.0 RATIO 04-07 [facility] 3.8 g/dL 2.2-4.2 [facility] 60 U/L 45-117 [facility] 54 U/L 16-61 [facility] 28.0 mmol/L 21.0-32.0 [facility] Platelets bldOrdered By: Italia Cooley on 04-05-2023 Platelets (Bld) [#/Vol] 399 10*3/uL 150-450 [facility] Serum or plasma albumin luis urement (mass/volume)Ordered By: Андрей Cooley on 04-05-2023 Albumin [Mass/Vol] 2.9 g/dL 3.2-5.0 [facility] Serum or plasma albumin/glob ulin mass ratioOrdered By: Андрей Cooley on 04-05-2023 Albumin/Globulin [Mass ratio] 0.8 {ratio} 0.9-2.4 [facility] Serum or plasma calcium luis urement (mass/volume)Ordered By: Андрей Cooley on 04-05-2023 Calcium [Mass/Vol] 9.3 mg/dL 8.5-10.1 [facility] Serum or plasma creatinine m easurement (mass/volume)Ordered By: Андрей Cooley on 04-05-2023 Creatinine [Mass/Vol] 1.09 mg/dL 0.70-1.30 [facility] Comment on above: The validity of the calculated GFR & GFRAA in patients over 70 years has not been determined. Clinical correlation is essential. Serum or plasma urea nitroge n measurement (mass/volume)Ordered By: Андрей Cooley on 04-05-2023 Urea nitrogen [Mass/Vol] 24 mg/dL 7-18 [facility] Thin prep Papanicolaou smear with manual screeningOrdered By: Андрей Cooley on 04-05-2023 Thin prep Papanicolaou smear with manual screening 38 U/L 15-37 [facility] Thin prep Papanicolaou smear with manual screening 6 5-15 [facility] Absolute lymphocyte countOrd ered By: Frankie Galindo on 04-04-2023 Lymphocytes Auto (Unsp spec) [#/Vol] 1.49 10*3/uL 0.83-4.51 [facility] Basophil percentageOrdered B y: Frankie Galindo on 04-04-2023 Basophil percentage 101 mg/dL 74-106 [facility] Basophil percentage 136 mmol/L 136-145 [facility] Basophil percentage 3.9 mmol/L 3.5-5.1 [facility] Basophil percentage 103 mmol/L 98-107 [facility] Basophils (Bld) [#/Vol] 6.3 10*3/uL 4.4-11.0 [facility] Basophils (Bld) [#/Vol] 4.1 10*3/uL 2.0-7.7 [facility] Basophils/100 WBC (Bld) 1.1 % 0-1 [facility] Basophils/100 WBC (Bld) 64.4 % 47-70 [facility] Basophils/100 WBC (Bld) 3.3 % 0-5 [facility] Chloride [Moles/Vol] 103 mmol/L 98-107 [facility] Eosinophils/100 WBC (Bld) 3.3 % 0-5 [facility] Glucose [Mass/Vol] 101 mg/dL 74-106 [facility] Comment on above: Fasting Glucose resu lt from 100 to 125 mg/dL suggests IMPAIRED HOMEOSTASIS per A.D.A. criteria. Neutrophils (Bld) [#/Vol] 4.1 10*3/uL 2.0-7.7 [facility] Neutrophils/100 WBC (Bld) 64.4 % 47-70 [facility] Potassium [Moles/Vol] 3.9 mmol/L 3.5-5.1 [facility] Sodium [Moles/Vol] 136 mmol/L 136-145 [facility] WBC (Bld) [#/Vol] 6.3 10*3/uL 4.4-11.0 [facility] Blood erythrocytes count (nu mber/volume)Ordered By: Frankie Galindo on 04-04-2023 RBC (Bld) [#/Vol] 4.82 10*6/uL 4.6-6.2 [facility] Blood hemoglobin measurement (mass/volume)Ordered By: Frankie Galindo on 04-04-2023 Hemoglobin (Bld) [Mass/Vol] 15.1 g/dL 13.0-16.5 [facility] Blood lymphocytes/100 leukoc ytesOrdered By: Frankie Galindo on 04-04-2023 Lymphocytes/100 WBC (Bld) 23.6 % 19-41 [facility] Blood monocytes/100 leukocyt esOrdered By: Frankie Galindo on 04-04-2023 Monocytes/100 WBC (Bld) 6.3 % 0-10 [facility] Blood platelet mean volumeOr dered By: Frankie Galindo on 04-04-2023 Platelet mean volume (Bld) [Entitic vol] 9.3 fL 6.2-12.0 [facility] Determination of erythrocyte mean corpuscular volume (MCV)Ordered By: Frankie Galindo on 04-04-2023 MCV (RBC) [Entitic vol] 96.7 fL 80-94 [facility] Hematocrit Auto (Bld) [Volum e fraction]Ordered By: Frankie Galindo on 04-04-2023 Hematocrit (Bld) [Volume fraction] 46.6 % 40-54 [facility] - Chemistry and C hemistry - challengeOrdered By: Frankie Galindo on 04-04-2023 CO2 [Moles/Vol] 29.0 mmol/L 21.0-32.0 [facility] Urea nitrogen/Creatinine [Mass ratio] 20.3 mg/mg 10-20 [facility] - Hematology and Cell countsOrdered By: Frankie Galindo on 04-04-2023 Erythrocyte distribution width (RBC) [Entitic vol] 48.9 fL 35.1-43.9 [facility] Erythrocyte distribution width (RBC) [Ratio] 13.6 % 11.6-14.6 [facility] Immature granulocytes/100 WBC (Bld) 1.300 % 0.0-0.9 [facility] Comment on above: IG% - Immature Granu locytes (promyelocytes, myelocytes and metamyelocytes) > 1% indicates that a LEFT SHIFT is Present. MCH (RBC) [Entitic mass] 31.3 pg 27.0-32.0 [facility] Nucleated RBC/100 WBC (Bld) [Ratio] 0 % 0-5 [facility] MCHC Auto (RBC) [Mass/Vol]Or dered By: Frankie Galindo on 04-04-2023 MCHC (RBC) [Mass/Vol] 32.4 g/dL 32-36 [facility] No Panel InformationOrdered By: Frankie Galindo on 04-04-2023 Estimated Creatinine Clearance Calc 45.80 ml/min [facility] Estimated GFR (MDRD) Amer 71 mL/min >60 [facility] Comment on above: GFR Calc Estimated GFR (MDRD) Non-Af Amer 58 mL/min >60 [facility] Comment on above: Non- GFR Calc 31.3 pg 27.0-32.0 [facility] 13.6 % 11.6-14.6 [facility] 48.9 fl 35.1-43.9 [facility] 1.300 % 0.0-0.9 [facility] 0 % 0-5 [facility] 58 mL/min >60 [facility] 71 mL/min >60 [facility] 45.80 ml/min [facility] 20.3 RATIO 10-20 [facility] 29.0 mmol/L 21.0-32.0 [facility] Platelets bldOrdered By: Sebastien Galindo on 04-04-2023 Platelets (Bld) [#/Vol] 379 10*3/uL 150-450 [facility] Serum or plasma calcium luis urement (mass/volume)Ordered By: Frankie Galindo on 04-04-2023 Calcium [Mass/Vol] 9.7 mg/dL 8.5-10.1 [facility] Serum or plasma creatinine m easurement (mass/volume)Ordered By: Frankie Galindo on 04-04-2023 Creatinine [Mass/Vol] 1.28 mg/dL 0.70-1.30 [facility] Comment on above: The validity of the calculated GFR & GFRAA in patients over 70 years has not been determined. Clinical correlation is essential. Serum or plasma urea nitroge n measurement (mass/volume)Ordered By: Frankie Galindo on 04-04-2023 Urea nitrogen [Mass/Vol] 26 mg/dL 7-18 [facility] Thin prep Papanicolaou smear with manual screeningOrdered By: Frankie Galindo on 04-04-2023 Thin prep Papanicolaou smear with manual screening 4 5-15 [facility] Basophil percentageOrdered B y: Frankie Galindo on 04-02-2023 Basophil percentage 2.6 mg/dL 2.5-4.9 [facility] - Chemistry and C hemistry - challengeOrdered By: Frankie Galindo on 04-02-2023 Magnesium [Mass/Vol] 2.0 mg/dL 1.6-2.6 [facility] No Panel InformationOrdered By: Frankie Galindo on 04-02-2023 2.0 mg/dL 1.6-2.6 [facility] Basophil percentageOrdered B y: Celia Toribio on 04-01-2023 Basophil percentage 6.5 g/dL 6.4-8.2 [facility] Basophil percentage 0.30 mg/dL 0.20-1.00 [facility] Bilirubin [Mass/Vol] 0.30 mg/dL 0.20-1.00 [facility] Comment on above: For patients on eltr ombopag therapy, use of [employer] [place] TBIL is not recommended. Protein [Mass/Vol] 6.5 g/dL 6.4-8.2 [facility] - Chemistry and C hemistry - challengeOrdered By: Celia Toribio on 04-01-2023 ALP [Catalytic activity/Vol] 57 U/L 45-117 [facility] ALT [Catalytic activity/Vol] 21 U/L [facility] Globulin (S) [Mass/Vol] 3.9 g/dL 2.2-4.2 [facility] No Panel InformationOrdered By: Celia Toribio on 04-01-2023 3.9 g/dL 2.2-4.2 [facility] 57 U/L [facility] 21 U/L [facility] Serum or plasma albumin luis urement (mass/volume)Ordered By: Celia Toribio on 04-01-2023 Albumin [Mass/Vol] 2.6 g/dL 3.2-5.0 [facility] Serum or plasma albumin/glob ulin mass ratioOrdered By: Celia Toribio on 04-01-2023 Albumin/Globulin [Mass ratio] 0.7 {ratio} 0.9-2.4 [facility] Thin prep Papanicolaou smear with manual screeningOrdered By: Celia Toribio on 04-01-2023 Thin prep Papanicolaou smear with manual screening 12 U/L 15 [facility] Absolute lymphocyte countOrd ered By: Huber Alvarado on 03-30-2023 Lymphocytes Auto (Unsp spec) [#/Vol] 0.93 10*3/uL 0.83-4.51 [facility] Bacteria identified Cx Nom ( U)Ordered By: Huber Alvarado on 03-30-2023 Culture, urine ESBL Escherichia coli [facility] Basophil percentageOrdered B y: Huber Alvarado on 03-30-2023 Basophil percentage 1.4 mmol/L 0.4-2.0 [facility] Lactate [Moles/Vol] 1.4 mmol/L 0.4-2.0 [facility] Basophil percentage 25-50 SEEN /hpf 0-5 [facility] Basophils/100 WBC (Bld) 0.7 % 0-1 [facility] Chloride [Moles/Vol] 99 mmol/L 98-107 [facility] Eosinophils/100 WBC (Bld) 0.0 % 0-5 [facility] Glucose [Mass/Vol] 104 mg/dL 74-106 [facility] Comment on above: Fasting Glucose resu lt from 100 to 125 mg/dL suggests IMPAIRED HOMEOSTASIS per A.D.A. criteria. Neutrophils (Bld) [#/Vol] 7.9 10*3/uL 2.0-7.7 [facility] Neutrophils/100 WBC (Bld) 79.2 % 47-70 [facility] Potassium [Moles/Vol] 4.0 mmol/L 3.5-5.1 [facility] Sodium [Moles/Vol] 134 mmol/L 136-145 [facility] WBC (Bld) [#/Vol] 10.0 10*3/uL 4.4-11.0 [facility] Bilirubin Test strip Ql (U)O rdered By: Huber Alvarado on 03-30-2023 Bilirubin Ql (U) Negative Negative [facility] Blood erythrocytes count (nu mber/volume)Ordered By: Huber Alvarado on 03-30-2023 RBC (Bld) [#/Vol] 4.81 10*6/uL 4.6-6.2 [facility] Blood hemoglobin measurement (mass/volume)Ordered By: Huber Alvarado on 03-30-2023 Hemoglobin (Bld) [Mass/Vol] 15.4 g/dL 13.0-16.5 [facility] Blood lymphocytes/100 leukoc ytesOrdered By: Huber Alvarado on 03-30-2023 Lymphocytes/100 WBC (Bld) 9.3 % 19-41 [facility] Blood monocytes/100 leukocyt esOrdered By: Huber Alvarado on 03-30-2023 Monocytes/100 WBC (Bld) 10.5 % 0-10 [facility] Blood platelet mean volumeOr dered By: Huber Alvarado on 03-30-2023 Platelet mean volume (Bld) [Entitic vol] 9.8 fL 6.2-12.0 [facility] Culture, urineOrdered By: Baldo Chan on 03-30-2023 Bacteria identified Cx Nom (U) ESBL Escherichia coli [facility] Bacteria identified Cx Nom (U) ESBL Escherichia coli [facility] Determination of erythrocyte mean corpuscular volume (MCV)Ordered By: Huber Alvarado on 03-30-2023 MCV (RBC) [Entitic vol] 97.5 fL 80-94 [facility] Hematocrit Auto (Bld) [Volum e fraction]Ordered By: Huber Alvarado on 03-30-2023 Hematocrit (Bld) [Volume fraction] 46.9 % 40-54 [facility] Ketones Test strip Ql (U)Ord ered By: Huber Alvarado on 03-30-2023 Ketones Ql (U) Negative Negative [facility] - Chemistry and C hemistry - challengeOrdered By: Huber Alvarado on 03-30-2023 CO2 [Moles/Vol] 31.0 mmol/L 21.0-32.0 [facility] Urea nitrogen/Creatinine [Mass ratio] 16.0 mg/mg 10-20 [facility] - Hematology and Cell countsOrdered By: Huber Alvarado on 03-30-2023 Erythrocyte distribution width (RBC) [Entitic vol] 50.3 fL 35.1-43.9 [facility] Erythrocyte distribution width (RBC) [Ratio] 13.9 % 11.6-14.6 [facility] Immature granulocytes/100 WBC (Bld) 0.300 % 0.0-0.9 [facility] Comment on above: IG% - Immature Granu locytes (promyelocytes, myelocytes and metamyelocytes) > 1% indicates that a LEFT SHIFT is Present. MCH (RBC) [Entitic mass] 32.0 pg 27.0-32.0 [facility] Nucleated RBC/100 WBC (Bld) [Ratio] 0 % 0-5 [facility] - Microbiology an d Antimicrobial susceptibilityOrdered By: Huber Alvarado on 03-30-2023 Bacteria identified Cx Nom (Bld) No growth in 5 days. [facility] MCHC Auto (RBC) [Mass/Vol]Or dered By: Huber Alvarado on 03-30-2023 MCHC (RBC) [Mass/Vol] 32.8 g/dL 32-36 [facility] Mucus LM Ql (Urine sed)Order ed By: Huber Alvarado on 03-30-2023 Mucus Ql (Urine sed) 0 SEEN /hpf [facility] Nitrite Test strip Ql (U)Ord ered By: Huber Alvarado on 03-30-2023 Nitrite Ql (U) Negative Negative [facility] No Panel InformationOrdered By: Huber Alvraado on 03-30-2023 No growth in [address] [facility] Estimated GFR (MDRD) Amer 77 mL/min >60 [facility] Comment on above: GFR Calc Estimated GFR (MDRD) Non-Af Amer 64 mL/min >60 [facility] Comment on above: Non- GFR Calc Platelets bldOrdered By: Beck Alvarado on 03-30-2023 Platelets (Bld) [#/Vol] 276 10*3/uL 150-450 [facility] Protein Test strip Ql (U)Ord ered By: Huber Alvarado on 03-30-2023 Protein Ql (U) 100 mg/dl Negative [facility] Serum or plasma calcium luis urement (mass/volume)Ordered By: Huber Alvarado on 03-30-2023 Calcium [Mass/Vol] 9.8 mg/dL 8.5-10.1 [facility] Serum or plasma creatinine m easurement (mass/volume)Ordered By: Huber Alvarado on 03-30-2023 Creatinine [Mass/Vol] 1.19 mg/dL 0.70-1.30 [facility] Comment on above: The validity of the calculated GFR & GFRAA in patients over 70 years has not been determined. Clinical correlation is essential. Serum or plasma urea nitroge n measurement (mass/volume)Ordered By: Huber Alvarado on 03-30-2023 Urea nitrogen [Mass/Vol] 19 mg/dL 7-18 [facility] Squamous epithelial cells de tection in urine sediment by light microscopyOrdered By: Huber Alvarado on 03-30-2023 Epithelial cells.squamous LM Ql (Urine sed) 0-5 SEEN /hpf 0-5 [facility] Thin prep Papanicolaou smear with manual screeningOrdered By: Huber Alvarado on 03-30-2023 Thin prep Papanicolaou smear with manual screening 4 5-15 [facility] Urine blood detectionOrdered By: Huber Alvarado on 03-30-2023 RBC Ql (U) 50 /ul Negative [facility] RBC Ql (U) 0 SEEN /hpf 0-5 [facility] Urine clarityOrdered By: Beck Alvarado on 03-30-2023 Clarity (U) Sl. Cloudy Clear [facility] Urine color determinationOrd ered By: Huber Alvarado on 03-30-2023 Color (U) Yellow Yellow [facility] Urine glucose detectionOrder ed By: Huber Alvarado on 03-30-2023 Glucose Ql (U) Normal mg/dl Normal [facility] Urine leukocyte esterase det ection by dipstickOrdered By: Huber Alvarado on 03-30-2023 Leukocyte esterase Test strip Ql (U) 500 /ul Negative [facility] Urine pHOrdered By: Huber billingsley on 03-30-2023 pH (U) 6.0 [pH] 5.0 - 8.0 [facility] Urine sediment bacteria coun t by microscopy (number/high power field)Ordered By: Huber Alvarado on 03-30-2023 Bacteria LM.HPF (Urine sed) [#/Area] 3 /[HPF] None Seen [facility] Urine specific gravity measu rementOrdered By: Huber Alvarado on 03-30-2023 Specific gravity (U) [Rel density] 1.020 1.002-1.030 [facility] Urobilinogen Auto test strip Ql (U)Ordered By: Huber Alvarado on 03-30-2023 Urobilinogen Ql (U) Normal mg/dl Normal [facility] INR in Blood by Coagulation assayOrdered By: Jaden Jauregui on 02-18-2023 INR Coag (Bld) [Relative time] 0.9 {INR} [facility] Laboratory - CoagulationOrde red By: Jaden Jauregui on 02-18-2023 PT Coag (PPP) [Time] 12.4 s 11.7-14.[address] [facility] [address] ABD/PELVIS W/ IV CONTRAST ONLYon [...] 10/22/2022 10:33:36 PM Ordering Provider: PRIYANKA Betts [facility] ([place]) .Auto Diffon 10-22-2022 Basophil, Absolute 0.1 10 3/mcL Normal 0.0-0.2 Formerly [facility] ([place]) Comment on above: Performed By: #### A DIFF, LIP, MDW, CMP, GFR, ANEU, CBC #### [address] [address] Basophils/100 WBC (Bld) 0.8 % Normal 0.0-2.5 A [facility] ([place]) Comment on above: Performed By: #### A DIFF, LIP, MDW, CMP, GFR, ANEU, CBC #### [address] [address] Eosinophil, Absolute 0.0 10 3/mcL Normal 0.0-0.4 [facility] ([place]) Comment on above: Performed By: #### A DIFF, LIP, MDW, CMP, GFR, ANEU, CBC #### [address] [address] Eosinophils/100 WBC (Bld) 0.3 % Normal 0.0-7.0 [facility] ([place]) Comment on above: Performed By: #### A DIFF, LIP, MDW, CMP, GFR, ANEU, CBC #### [address] [address] Lymphocyte, Absolute 0.9 10 3/mcL Normal 0.8-3.9 [facility] ([place]) Comment on above: Performed By: #### A DIFF, LIP, MDW, CMP, GFR, ANEU, CBC #### [address] [address] Lymphocytes/100 WBC (Bld) 8.1 % Low 10.0-50.0 [facility] ([place]) Comment on above: Performed By: #### A DIFF, LIP, MDW, CMP, GFR, ANEU, CBC #### [address] [address] Monocyte, Absolute 0.7 10 3/mcL Normal 0.2-1.0 [facility] ([place]) Comment on above: Performed By: #### A DIFF, LIP, MDW, CMP, GFR, ANEU, CBC #### [address] [address] Monocytes/100 WBC (Bld) 6.8 % Normal 1.7-13.0 Formerly [facility] ([place]) Comment on above: Performed By: #### A DIFF, LIP, MDW, CMP, GFR, ANEU, CBC #### [address] [address] Neutrophils/100 WBC (Bld) 84.0 % High 37.0-80.0 [facility] ([place]) Comment on above: Performed By: #### A DIFF, LIP, MDW, CMP, GFR, ANEU, CBC #### [address] [address] .GFRon 10-22-2022 GFR Non- 58 ml/min/1.73sqm Normal [facility] ([place]) Comment on above: Result Comment: [...] LIP, MDW, CMP, GFR, ANEU, CBC #### [address] [address] GFR 71 ml/min/1.73sqm Normal [facility] ([place]) Comment on above: Result Comment: [...] LIP, MDW, CMP, GFR, ANEU, CBC #### [address] [address] .MDWon 10-22-2022 Monocyte Distribution Width 24.33 High 0.00-20.00 [facility] ([place]) Comment on above: Result Comment: For adults in ED, MDW>20.0 may be associated with a higher risk of sepsis during the first 12hrs of hospital admission Performed By: #### A DIFF, LIP, MDW, CMP, GFR, ANEU, CBC #### [address] [address] .NEUABSon 10-22-2022 Neutrophil, Absolute 8.9 10 3/mcL High 2.9-6.2 [facility] ([place]) Comment on above: Performed By: #### A DIFF, LIP, MDW, CMP, GFR, ANEU, CBC #### [address] [address] CBCon 10-22-2022 Erythrocyte distribution width (RBC) [Ratio] 14.0 % Normal 11.5-14.5 [facility] ([place]) Comment on above: Performed By: #### A DIFF, LIP, MDW, CMP, GFR, ANEU, CBC #### [address] [address] Hematocrit (Bld) [Volume fraction] 38.9 % Low 42.0-52.0 [facility] ([place]) Comment on above: Performed By: #### A DIFF, LIP, MDW, CMP, GFR, ANEU, CBC #### [place] [address] Hgb 13.5 G/dL Low 14.0-18.0 [facility] ([place]) Comment on above: Performed By: #### A DIFF, LIP, MDW, CMP, GFR, ANEU, CBC #### [address] [address] MCH (RBC) [Entitic mass] 33.0 pg High 27.0-31.2 [facility] ([place]) Comment on above: Performed By: #### A DIFF, LIP, MDW, CMP, GFR, ANEU, CBC #### [address] [address] MCHC 34.8 G/dL Normal 31.8-35.4 [facility] ([place]) Comment on above: Performed By: #### A DIFF, LIP, MDW, CMP, GFR, ANEU, CBC #### [address] [address] MCV (RBC) [Entitic vol] 95.0 fL High 80.0-94.0 A [facility] ([place]) Comment on above: Performed By: #### A DIFF, LIP, MDW, CMP, GFR, ANEU, CBC #### [address] [address] Platelet 344 10 3/mcL Normal 130-400 [facility] ([place]) Comment on above: Performed By: #### A DIFF, LIP, MDW, CMP, GFR, ANEU, CBC #### [address] [address] Platelet mean volume (Bld) [Entitic vol] 7.1 fL Low 7.4-10.4 [facility] ([place]) Comment on above: Performed By: #### A DIFF, LIP, MDW, CMP, GFR, ANEU, CBC #### [address] [address] RBC 4.10 10 6/mcL Normal 4.04-6.13 [facility] ([place]) Comment on above: Performed By: #### A DIFF, LIP, MDW, CMP, GFR, ANEU, CBC #### [address] [address] WBC 10.6 10 3/mcL Normal 4.6-10.8 [facility] ([place]) Comment on above: Performed By: #### A DIFF, LIP, MDW, CMP, GFR, ANEU, CBC #### [address] [address] CMPon 10-22-2022 Albumin Level 2.9 G/dL Low 3.4-4.8 [facility] ([place]) Comment on above: Performed By: #### A DIFF, LIP, MDW, CMP, GFR, ANEU, CBC #### [address] [address] Albumin/Globulin [Mass ratio] 0.8 {ratio} Low 1.1-2.5 [facility] ([place]) Comment on above: Performed By: #### A DIFF, LIP, MDW, CMP, GFR, ANEU, CBC #### [address] [address] ALP [Catalytic activity/Vol] 98 U/L Normal 40-135 [facility] ([place]) Comment on above: Performed By: #### A DIFF, LIP, MDW, CMP, GFR, ANEU, CBC #### [address] [address] ALT [Catalytic activity/Vol] 46 U/L Normal 16-63 [facility] ([place]) Comment on above: Performed By: #### A DIFF, LIP, MDW, CMP, GFR, ANEU, CBC #### [address] [address] AST [Catalytic activity/Vol] 29 U/L Normal 10-40 [facility] ([place]) Comment on above: Performed By: #### A DIFF, LIP, MDW, CMP, GFR, ANEU, CBC #### [address] [address] Bili Total 0.3 mg/dL Normal 0.2-1.0 [facility] ([place]) Comment on above: Result Comment: Use of this assay is not recommended for patients undergoing treatment with eltrombopag due to the potential for falsely elevated results. Performed By: #### A DIFF, LIP, MDW, CMP, GFR, ANEU, CBC #### [place] [address] BUN/Creatinine Ratio 17 ratio Normal 7-27 [facility] ([place]) Comment on above: Performed By: #### A DIFF, LIP, MDW, CMP, GFR, ANEU, CBC #### [address] [address] Calcium [Mass/Vol] 9.2 mg/dL Normal 8.4-10.2 [facility] ([place]) Comment on above: Performed By: #### A DIFF, LIP, MDW, CMP, GFR, ANEU, CBC #### [address] [address] Chloride [Moles/Vol] 96 mmol/L Low 98-107 [facility] ([place]) Comment on above: Performed By: #### A DIFF, LIP, MDW, CMP, GFR, ANEU, CBC #### [address] [address] CO2 [Moles/Vol] 33 mmol/L High 23-31 [facility] ([place]) Comment on above: Performed By: #### A DIFF, LIP, MDW, CMP, GFR, ANEU, CBC #### [address] [address] Creatinine [Mass/Vol] 1.22 mg/dL Normal 0.70-1.30 [facility] ([place]) Comment on above: Performed By: #### A DIFF, LIP, MDW, CMP, GFR, ANEU, CBC #### [address] [address] Electrolyte Balance 5.0 mEq/L Normal 4.0-15.0 [facility] ([place]) Comment on above: Performed By: #### A DIFF, LIP, MDW, CMP, GFR, ANEU, CBC #### [place] [address] Globulin 3.5 G/dL Normal [facility] ([place]) Comment on above: Performed By: #### A DIFF, LIP, MDW, CMP, GFR, ANEU, CBC #### [place] [address] Glucose [Mass/Vol] 111 mg/dL High 83-110 [facility] ([place]) Comment on above: Performed By: #### A DIFF, LIP, MDW, CMP, GFR, ANEU, CBC #### [place] [address] Potassium [Moles/Vol] 4.3 mmol/L Normal 3.5-5.1 [facility] ([place]) Comment on above: Performed By: #### A DIFF, LIP, MDW, CMP, GFR, ANEU, CBC #### [place] [address] Sodium [Moles/Vol] 134 mmol/L Low 136-145 [facility] ([place]) Comment on above: Performed By: #### A DIFF, LIP, MDW, CMP, GFR, ANEU, CBC #### [place] [address] Total Protein 6.4 G/dL Normal 6.4-8.2 [facility] ([place]) Comment on above: Performed By: #### A DIFF, LIP, MDW, CMP, GFR, ANEU, CBC #### [place] [id number] Urea nitrogen [Mass/Vol] 21 mg/dL High 7-18 [facility] ([place]) Comment on above: Performed By: #### A DIFF, LIP, MDW, CMP, GFR, ANEU, CBC #### [place] [address] [place], [place] [address] LABORATORYOrdered By: SYSTEM SYSTEM on 10-22-2022 Albumin [...] 10-22-2022 Lipase Level 32 U/L Normal 16-77 [facility] ([place]) Comment on above: Performed By: #### A DIFF, LIP, MDW, CMP, GFR, ANEU, CBC #### [address] [address] Absolute lymphocyte countOrd ered By: Dr. Jauregui on 10-21-2022 Lymphocytes Auto (Unsp spec) [#/Vol] 0.85 10*3/uL 0.83-4.51 [facility] Basophil percentageOrdered B y: Dr. Jauregui on 10-21-2022 Basophil percentage 25-50 SEEN /hpf 0-5 [facility] Basophils/100 WBC (Bld) 0.6 % 0-1 [facility] Bilirubin [Mass/Vol] 0.30 mg/dL 0.20-1.00 [facility] Comment on above: For patients on eltr ombopag therapy, use of Dimension [place] TBIL is not recommended. Chloride [Moles/Vol] 99 mmol/L 98-107 [facility] Eosinophils/100 WBC (Bld) 0.4 % 0-5 [facility] Glucose [Mass/Vol] 104 mg/dL 74-106 [facility] Comment on above: Fasting Glucose resu lt from 100 to 125 mg/dL suggests IMPAIRED HOMEOSTASIS per A.D.A. criteria. Neutrophils (Bld) [#/Vol] 8.8 10*3/uL 2.0-7.7 [facility] Neutrophils/100 WBC (Bld) 84.2 % 47-70 [facility] Potassium [Moles/Vol] 3.6 mmol/L 3.5-5.1 [facility] Protein [Mass/Vol] 7.2 g/dL 6.4-8.2 [facility] Sodium [Moles/Vol] 135 mmol/L 136-145 [facility] WBC (Bld) [#/Vol] 10.4 10*3/uL 4.4-11.0 [facility] Bilirubin Test strip Ql (U)O rdered By: Dr. Jauregui on 10-21-2022 Bilirubin Ql (U) Negative Negative [facility] Blood erythrocytes count (nu mber/volume)Ordered By: Dr. Jauregui on 10-21-2022 RBC (Bld) [#/Vol] 4.51 10*6/uL 4.6-6.2 [facility] Blood hemoglobin measurement (mass/volume)Ordered By: Dr. Jauregui on 10-21-2022 Hemoglobin (Bld) [Mass/Vol] 14.4 g/dL 13.0-16.5 [facility] Blood lymphocytes/100 leukoc ytesOrdered By: Dr. Jauregui on 10-21-2022 Lymphocytes/100 WBC (Bld) 8.2 % 19-41 [facility] Blood monocytes/100 leukocyt esOrdered By: Dr. Jauregui on 10-21-2022 Monocytes/100 WBC (Bld) 5.4 % 0-10 [facility] Blood platelet mean volumeOr dered By: Dr. Jauregui on 10-21-2022 Platelet mean volume (Bld) [Entitic vol] 8.9 fL 6.2-12.0 [facility] Culture, urineOrdered By: Joseph Jauregui on 10-21-2022 Bacteria identified Cx Nom (U) Presumptive E. coli [facility] Determination of erythrocyte mean corpuscular volume (MCV)Ordered By: Dr. Jauregui on 10-21-2022 MCV (RBC) [Entitic vol] 95.6 fL 80-94 [facility] Hematocrit Auto (Bld) [Volum e fraction]Ordered By: Dr. Jauregui on 10-21-2022 Hematocrit (Bld) [Volume fraction] 43.1 % 40-54 [facility] Ketones Test strip Ql (U)Ord ered By: Dr. Jauregui on 10-21-2022 Ketones Ql (U) Negative Negative [facility] Laboratory - Chemistry and C hemistry - challengeOrdered By: Dr. Jauregui on 10-21-2022 ALP [Catalytic activity/Vol] 84 U/L 45-117 [facility] ALT [Catalytic activity/Vol] 41 U/L 16-61 [facility] CO2 [Moles/Vol] 28.0 mmol/L 21.0-32.0 [facility] Globulin (S) [Mass/Vol] 4.2 g/dL 2.2-4.2 [facility] Lipase [Catalytic activity/Vol] 42 U/L 13-75 [facility] Comment on above: Please note:LIPASE r evised reference range effective 22. New Lipase methodology. Expected to produce lower values than the previous assay method. NEW Reference Range: 13 - 75 U/L Urea nitrogen/Creatinine [Mass ratio] 16.3 mg/mg 10-20 [facility] Laboratory - Hematology and Cell countsOrdered By: Dr. Jauregui on 10-21-2022 Erythrocyte distribution width (RBC) [Entitic vol] 45.7 fL 35.1-43.9 [facility] Erythrocyte distribution width (RBC) [Ratio] 13.0 % 11.6-14.6 [facility] Immature granulocytes/100 WBC (Bld) 1.200 % 0.0-0.9 [facility] Comment on above: IG% - Immature Granu locytes (promyelocytes, myelocytes and metamyelocytes) > 1% indicates that a LEFT SHIFT is Present. MCH (RBC) [Entitic mass] 31.9 pg 27.0-32.0 [facility] Nucleated RBC/100 WBC (Bld) [Ratio] 0 % 0-5 [facility] MCHC Auto (RBC) [Mass/Vol]Or dered By: Dr. Jauregui on 10-21-2022 MCHC (RBC) [Mass/Vol] 33.4 g/dL 32-36 [facility] Mucus LM Ql (Urine sed)Order ed By: Dr. Jauregui on 10-21-2022 Mucus Ql (Urine sed) 0 SEEN /hpf [facility] Nitrite Test strip Ql (U)Ord ered By: Dr. Jauregui on 10-21-2022 Nitrite Ql (U) Negative Negative [facility] No Panel InformationOrdered By: Dr. Jauregui on 10-21-2022 Estimated GFR (MDRD) Amer 90 mL/min >60 [facility] Comment on above: GFR Calc Estimated GFR (MDRD) Non-Af Amer 74 mL/min >60 [facility] Comment on above: Non- GFR Calc Platelets bldOrdered By: Dr. Jauregui on 10-21-2022 Platelets (Bld) [#/Vol] 339 10*3/uL 150-450 [facility] Protein Test strip Ql (U)Ord ered By: Dr. Jauregui on 10-21-2022 Protein Ql (U) 100 mg/dl Negative [facility] Serum or plasma albumin luis urement (mass/volume)Ordered By: Dr. Jauregui on 10-21-2022 Albumin [Mass/Vol] 3.0 g/dL 3.2-5.0 [facility] Serum or plasma albumin/glob ulin mass ratioOrdered By: Dr. Jauregui on 10-21-2022 Albumin/Globulin [Mass ratio] 0.7 {ratio} 0.9-2.4 [facility] Serum or plasma calcium luis urement (mass/volume)Ordered By: Dr. Jauregui on 10-21-2022 Calcium [Mass/Vol] 9.8 mg/dL 8.5-10.1 [facility] Serum or plasma creatinine m easurement (mass/volume)Ordered By: Dr. Jauregui on 10-21-2022 Creatinine [Mass/Vol] 1.04 mg/dL 0.70-1.30 [facility] Comment on above: The validity of the calculated GFR & GFRAA in patients over 70 years has not been determined. Clinical correlation is essential. Serum or plasma urea nitroge n measurement (mass/volume)Ordered By: Dr. Jauregui on 10-21-2022 Urea nitrogen [Mass/Vol] 17 mg/dL 7-18 [facility] Squamous epithelial cells de tection in urine sediment by light microscopyOrdered By: Dr. Jauregui on 10-21-2022 Epithelial cells.squamous LM Ql (Urine sed) 0-5 SEEN /hpf 0-5 [facility] Thin prep Papanicolaou smear with manual screeningOrdered By: Dr. Jauregui on 10-21-2022 Thin prep Papanicolaou smear with manual screening 20 U/L 15-37 [facility] Thin prep Papanicolaou smear with manual screening 8 5-15 [facility] Urine blood detectionOrdered By: Dr. Jauregui on 10-21-2022 RBC Ql (U) 50 /ul Negative [facility] RBC Ql (U) 0 SEEN /hpf 0-5 [facility] Urine clarityOrdered By: Dr. Jauregui on 10-21-2022 Clarity (U) Sl. Cloudy Clear [facility] Urine color determinationOrd ered By: Dr. Jauregui on 10-21-2022 Color (U) Yellow Yellow [facility] Urine glucose detectionOrder ed By: Dr. Jauregui on 10-21-2022 Glucose Ql (U) Normal mg/dl Normal [facility] Urine leukocyte esterase det ection by dipstickOrdered By: Dr. Jauregui on 10-21-2022 Leukocyte esterase Test strip Ql (U) 500 /ul Negative [facility] Urine pHOrdered By: Dr. Babs mckeon on 10-21-2022 pH (U) 6.0 [pH] 5.0 - 8.0 [facility] Urine sediment bacteria coun t by microscopy (number/high power field)Ordered By: Dr. Jauregui on 10-21-2022 Bacteria LM.HPF (Urine sed) [#/Area] 2 /[HPF] None Seen [facility] Urine specific gravity measu rementOrdered By: Dr. Jauregui on 10-21-2022 Specific gravity (U) [Rel density] 1.010 1.002-1.030 [facility] Urobilinogen Auto test strip Ql (U)Ordered By: Dr. Jauregui on 10-21-2022 Urobilinogen Ql (U) Normal mg/dl Normal [facility] No Panel InformationOrdered By: Андрей Coolye on 08-11-2022 Miscellaneous Test See comment [facility] Comment on above: TEST RESULT LIMITSCa rbamazepine(Tegretol), S 7.1 ug/mL 4.0-12.0 In conjunction with other antiepileptic drugs Therapeutic 4.0 - 8.0 Toxicity 9.0 - 12.0 Carbamazepine alone Therapeutic 8.0 - 12.0 Detection Limit = 2.0 <2.0 indicated None Detected Verified by repeat analysis TESTING PERFORMED AT [facility]. ORIGINAL REPORT ON FILE IN LAB CONTAINS ADDITIONAL TEST SITE INFORMATION. No Panel InformationOrdered By: Андрей Cooley on 07-12-2022 Miscellaneous Test See comment [facility] Comment on above: TEST RESULT LIMITSCarbamazepine(Tegretol),SCarbamazepine(Tegretol), S 6.3 ug/mL 4.0-12.0 In conjunction with other antiepileptic drugs Therapeutic 4.0 - 8.0 Toxicity 9.0 - 12.0 Carbamazepine alone Therapeutic 8.0 - 12.0 Detection Limit = 2.0 <2.0 indicated None Detected ____ TESTING PERFORMED AT [employer]. ORIGINAL REPORT ON FILE IN LAB CONTAINS ADDITIONAL TEST SITE INFORMATION. Basophil percentageOrdered B y: Андрей Cooley on 06-14-2022 Bilirubin [Mass/Vol] 0.20 mg/dL 0.20-1.00 [facility] Comment on above: For patients on eltr ombopag therapy, use of Dimension [place] TBIL is not recommended. Chloride [Moles/Vol] 104 mmol/L 98-107 [facility] Cholesterol [Mass/Vol] 139 mg/dL <200 [facility] Comment on above: <200 mg/dL Desirable 200-240 mg/dL Borderline >240 mg/dL High Risk Glucose [Mass/Vol] 76 mg/dL 74-106 [facility] Potassium [Moles/Vol] 3.9 mmol/L 3.5-5.1 [facility] Protein [Mass/Vol] 6.4 g/dL 6.4-8.2 [facility] Sodium [Moles/Vol] 139 mmol/L 136-145 [facility] Triglyceride [Mass/Vol] 111 mg/dL <199 [facility] Comment on above: The drugs N-Acetylcy steine and Metamizole may falsely depress this assay.Serum Triglycerides Reference Interval Normal <150 mg/dL Borderline high 150 - 199 mg/dL High 200 - 499 mg/dL Very High > or = 500 mg/dL WBC (Bld) [#/Vol] 5.5 10*3/uL 4.4-11.0 [facility] Blood erythrocytes count (nu mber/volume)Ordered By: Андрей Cooley on 06-14-2022 RBC (Bld) [#/Vol] 4.57 10*6/uL 4.6-6.2 [facility] Blood hemoglobin measurement (mass/volume)Ordered By: Андрей Cooley on 06-14-2022 Hemoglobin (Bld) [Mass/Vol] 15.0 g/dL 13.0-16.5 [facility] Blood platelet mean volumeOr dered By: Андрей Cooley on 06-14-2022 Platelet mean volume (Bld) [Entitic vol] 10.0 fL 6.2-12.0 [facility] Determination of erythrocyte mean corpuscular volume (MCV)Ordered By: Андрей Cooley on 06-14-2022 MCV (RBC) [Entitic vol] 100.4 fL 80-94 [facility] Hematocrit Auto (Bld) [Volum e fraction]Ordered By: Андрей Cooley on 06-14-2022 Hematocrit (Bld) [Volume fraction] 45.9 % 40-54 [facility] Laboratory - Chemistry and C hemistry - challengeOrdered By: Андрей Cooley on 06-14-2022 ALP [Catalytic activity/Vol] 68 U/L 45-117 [facility] ALT [Catalytic activity/Vol] 31 U/L 16-61 [facility] CO2 [Moles/Vol] 31.0 mmol/L 21.0-32.0 [facility] Globulin (S) [Mass/Vol] 3.0 g/dL 2.2-4.2 [facility] Urea nitrogen/Creatinine [Mass ratio] 22.5 mg/mg 10-20 [facility] Laboratory - Hematology and Cell countsOrdered By: Андрей Cooley on 06-14-2022 Erythrocyte distribution width (RBC) [Entitic vol] 51.8 fL 35.1-43.9 [facility] Erythrocyte distribution width (RBC) [Ratio] 14.2 % 11.6-14.6 [facility] MCH (RBC) [Entitic mass] 32.8 pg 27.0-32.0 [facility] MCHC Auto (RBC) [Mass/Vol]Or dered By: Андрей Cooley on 06-14-2022 MCHC (RBC) [Mass/Vol] 32.7 g/dL 32-36 [facility] No Panel InformationOrdered By: Андрей Cooley on 06-14-2022 Estimated GFR (MDRD) Amer 108 mL/min >60 [facility] Comment on above: GFR Calc Estimated GFR (MDRD) Non-Af Amer 89 mL/min >60 [facility] Comment on above: Non- GFR Calc Vitamin D 25-Hydroxy 40.8 ng/mL [facility] Comment on above: Vitamin D 25(OH) Sta tus Range Deficiency <20 ng/mL (50nmol/L) Insufficiency 20 - 30 ng/mL (50 - 75 nmol/L) Sufficiency 30 - 100 ng/mL (75 - 250 nmol/L) Toxicity >100 ng/mL (>250 nmol/L) Platelets bldOrdered By: Italia Cooley on 06-14-2022 Platelets (Bld) [#/Vol] 239 10*3/uL 150-450 [facility] Serum or plasma albumin luis urement (mass/volume)Ordered By: Андрей Cooley on 06-14-2022 Albumin [Mass/Vol] 3.4 g/dL 3.2-5.0 [facility] Serum or plasma albumin/glob ulin mass ratioOrdered By: Андрей Cooley on 06-14-2022 Albumin/Globulin [Mass ratio] 1.1 {ratio} 0.9-2.4 [facility] Serum or plasma calcium luis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 Creatinine [Mass/Vol] 0.98 mg/dL 0.70-1.30 [facility] Work Phone: Comment on above: The validity of the calculated GFR & GFRAA in patients over 70 years has not been determined. Clinical correlation is essential. Serum or plasma urea nitroge n measurement (mass/volume)on 12-10-2021 Urea nitrogen [Mass/Vol] 21 mg/dL 7-18 [facility] Work Phone: Thin prep Papanicolaou smear with manual screeningon 12-10-2021 Thin prep Papanicolaou smear with manual screening 6 5-15 [facility] Work Phone: [phone] Basophil percentageon 2021 Chloride [Moles/Vol] 107 mmol/L 98-[address] [facility] Work Phone: Glucose [Mass/Vol] 89 mg/dL 74-106 [facility] Work Phone: [phone] Potassium [Moles/Vol] 4.3 mmol/L 3.5-5.1 [facility] Work Phone: [phone] Sodium [Moles/Vol] 140 mmol/L 136-145 [facility] Work Phone: [phone] WBC (Bld) [#/Vol] 6.1 10*3/uL 4.4-11.0 [facility] Work Phone: [phone] Blood erythrocytes count (nu mber/volume)on 12-08-2021 RBC (Bld) [#/Vol] 3.96 10*6/uL 4.6-6.2 [facility] Work [facility]: Blood hemoglobin measurement (mass/volume)on 12-08-2021 Hemoglobin (Bld) [Mass/Vol] 10.6 g/dL 13.0-16.5 [facility] Work Phone: Blood platelet mean volumeon 12-08-2021 Platelet mean volume (Bld) [Entitic vol] 10.8 fL 6.2-12.0 [facility] Work Phone: Determination of erythrocyte mean corpuscular volume (MCV)on 12-08-2021 MCV (RBC) [Entitic vol] 91.2 fL 80-94 [facility] Work Phone: [phone] Hematocrit Auto (Bld) [Volum e fraction]on 12-08-2021 Hematocrit (Bld) [Volume fraction] 36.1 % 40-54 [facility] Work Phone: INR in Blood by Coagulation assayon 12-08-2021 INR Coag (Bld) [Relative time] 1.5 {INR} [facility] Work Phone: [phone] Laboratory - Chemistry and C hemistry - challengeon 12-08-2021 CO2 [Moles/Vol] 27.0 mmol/L 21.0-32.0 [facility] Work Phone: Urea nitrogen/Creatinine [Mass ratio] 23.1 mg/mg 10-20 [facility] Work Phone: Laboratory - Coagulationon 0 12-08-2021 PT Coag (PPP) [Time] 17.5 s 11.7-14.9 [facility] Work Phone: [phone] Laboratory - Hematology and Cell countson 12-08-2021 Erythrocyte distribution width (RBC) [Entitic vol] 97.8 fL 35.1-43.9 [facility] Work Phone: [phone] Erythrocyte distribution width (RBC) [Ratio] 30.4 % 11.6-14.6 [facility] Work Phone: [phone] MCH (RBC) [Entitic mass] 26.8 pg 27.0-32.0 [facility] Work Phone: MCHC Auto (RBC) [Mass/Vol]on 12-08-2021 MCHC (RBC) [Mass/Vol] 29.4 g/dL 32-36 [facility] Work Phone: No Panel Informationon 12-08 Carbamazepine (Tegretol) Level 7.9 ug/mL 4.0-12.0 [facility] Work Phone: Estimated GFR (MDRD) Amer 90 mL/min >60 [facility] Work Phone: [phone] Comment on above: GFR Calc Estimated GFR (MDRD) Non-Af Amer 75 mL/min >60 [facility] Work Phone: Comment on above: Non- GFR Calc Platelets bldon 12-08-2021 Platelets (Bld) [#/Vol] 295 10*3/uL 150-450 [facility] Work Phone: Serum or plasma calcium luis urement (mass/volume)on 12-08-2021 Calcium [Mass/Vol] 8.8 mg/dL 8.5-10.1 [facility] Work Phone: Serum or plasma creatinine m easurement (mass/volume)on 12-08-2021 Creatinine [Mass/Vol] 1.04 mg/dL 0.70-1.30 [facility] Work Phone: Comment on above: The validity of the calculated GFR & GFRAA in patients over 70 years has not been determined. Clinical correlation is essential. Serum or plasma urea nitroge n measurement (mass/volume)on 12-08-2021 Urea nitrogen [Mass/Vol] 24 mg/dL 7-18 [facility] Work Phone: Thin prep Papanicolaou smear with manual screeningon 12-08-2021 Thin prep Papanicolaou smear with manual screening 6 5-15 [facility] Work Phone: Absolute lymphocyte counton 12-06-2021 Lymphocytes Auto (Unsp spec) [#/Vol] 1.64 10*3/uL 0.83-4.51 [facility] Work Phone: Basophil percentageon 2021 Basophils/100 WBC (Bld) 1.6 % 0-1 [facility] Work Phone: Chloride [Moles/Vol] 106 mmol/L 98-107 [facility] Work Phone: Eosinophils/100 WBC (Bld) 4.0 % 0-5 [facility] Work Phone: Glucose [Mass/Vol] 75 mg/dL 74-106 [facility] Work Phone: Neutrophils (Bld) [#/Vol] 4.5 10*3/uL 2.0-7.7 [facility] Work Phone: Neutrophils/100 WBC (Bld) 64.0 % 47-70 [facility] Work Phone: Potassium [Moles/Vol] 4.6 mmol/L 3.5-5.1 [facility] Work Phone: Sodium [Moles/Vol] 138 mmol/L 136-145 [facility] Work Phone: WBC (Bld) [#/Vol] 7.0 10*3/uL 4.4-11.0 [facility] Work Phone: Blood erythrocytes count (nu mber/volume)on 12-06-2021 RBC (Bld) [#/Vol] 3.83 10*6/uL 4.6-6.2 [facility] Work Phone: Blood hemoglobin measurement (mass/volume)on 12-06-2021 Hemoglobin (Bld) [Mass/Vol] 10.2 g/dL 13.0-16.5 [facility] Work Phone: Blood lymphocytes/100 leukoc yteson 12-06-2021 Lymphocytes/100 WBC (Bld) 23.6 % 19-41 [facility] Work Phone: Blood monocytes/100 leukocyt eson 12-06-2021 Monocytes/100 WBC (Bld) 6.5 % 0-10 [facility] Work Phone: Blood platelet adequacy dete ction by light microscopyon 12-06-2021 Platelets LM Ql (Bld) ADEQUATE ADEQ [facility] Work Phone: Blood platelet mean volumeon 12-06-2021 Platelet mean volume (Bld) [Entitic vol] 10.7 fL 6.2-12.0 [facility] Work Phone: Blood poikilocytosis detecti on by light microscopyon 12-06-2021 Poikilocytosis LM Ql (Bld) 1+ [facility] Work Phone: Determination of erythrocyte mean corpuscular volume (MCV)on 12-06-2021 MCV (RBC) [Entitic vol] 92.7 fL 80-94 [facility] Work Phone: Hematocrit Auto (Bld) [Volum e fraction]on 12-06-2021 Hematocrit (Bld) [Volume fraction] 35.5 % 40-54 [facility] Work Phone: Hypochromatic red blood cell detectionon 12-06-2021 Hypochromia Ql (Bld) 1+ [facility] Work Phone: INR in Blood by Coagulation assayon 12-06-2021 INR Coag (Bld) [Relative time] 1.2 {INR} [facility] Work Phone: Laboratory - Chemistry and C hemistry - challengeon 12-06-2021 CO2 [Moles/Vol] 25.0 mmol/L 21.0-32.0 [facility] Work Phone: [phone] Urea nitrogen/Creatinine [Mass ratio] 17.1 mg/mg - [facility] Work Phone: [phone] Laboratory - Coagulationon 0 12-06-2021 PT Coag (PPP) [Time] 14.9 s 11.7-14.9 [facility] Work Phone: Laboratory - Hematology and Cell countson 12-06-2021 Anisocytosis Ql (Bld) 4+ [facility] Work Phone: Erythrocyte distribution width (RBC) [Entitic vol] 100.5 fL 35.1-43.9 [facility] Work Phone: [phone] Erythrocyte distribution width (RBC) [Ratio] 30.6 % 11.6-14.6 [facility] Work Phone: Immature granulocytes/100 WBC (Bld) 0.300 % 0.0-0.9 [facility] Work Phone: Comment on above: IG% - Immature Granu locytes (promyelocytes, myelocytes and metamyelocytes) > 1% indicates that a LEFT SHIFT is Present. MCH (RBC) [Entitic mass] 26.6 pg 27.0-32.0 [facility] Work Phone: Nucleated RBC/100 WBC (Bld) [Ratio] 0 % 0-5 [facility] Work Phone: [phone] MCHC Auto (RBC) [Mass/Vol]on 12-06-2021 MCHC (RBC) [Mass/Vol] 28.7 g/dL 32-36 [facility] Work Phone: Macrocytes detectionon 12-06 Macrocytes Ql (Bld) 1+ [facility] Work [facility]: No Panel Informationon 12-06 Estimated GFR (MDRD) Amer 89 mL/min >60 [facility] Work Phone: Comment on above: GFR Calc Estimated GFR (MDRD) Non-Af Amer 74 mL/min >60 [facility] Work Phone: Comment on above: Non- GFR Calc Ovalocyte detectionon 2021 Ovalocytes LM Ql (Bld) 2+ [facility] Work Phone: Platelets bldon 12-06-2021 Platelets (Bld) [#/Vol] 265 10*3/uL 150-450 [facility] Work Phone: Serum or plasma calcium luis urement (mass/volume)on 12-06-2021 Calcium [Mass/Vol] 8.9 mg/dL 8.5-10.1 [facility] Work Phone: Serum or plasma creatinine m easurement (mass/volume)on 12-06-2021 Creatinine [Mass/Vol] 1.05 mg/dL 0.70-1.30 [facility] Work Phone: Comment on above: The validity of the calculated GFR & GFRAA in patients over 70 years has not been determined. Clinical correlation is essential. Serum or plasma urea nitroge n measurement (mass/volume)on 12-06-2021 Urea nitrogen [Mass/Vol] 18 mg/dL 7-18 [facility] Work Phone: Teardrop cell detectionon Dacrocytes LM Ql (Bld) 1+ [facility] Work Phone: Thin prep Papanicolaou smear with manual screeningon 12-06-2021 Thin prep Papanicolaou smear with manual screening 1+ [facility] Work Phone: Thin prep Papanicolaou smear with manual screening 7 5-15 [facility] Work Phone: Basophil percentageon 2021 Basophil percentage 0-5 SEEN /hpf 0-5 [facility] Work Phone: Bilirubin Test strip Ql (U)o n 12-04-2021 Bilirubin Ql (U) Negative Negative [facility] Work Phone: Ketones Test strip Ql (U)on 12-04-2021 Ketones Ql (U) Negative Negative [facility] Work Phone: Mucus LM Ql (Urine sed)on Mucus Ql (Urine sed) 0 SEEN /hpf [facility] Work Phone: Nitrite Test strip Ql (U)on 12-04-2021 Nitrite Ql (U) Negative Negative [facility] Work Phone: Protein Test strip Ql (U)on 12-04-2021 Protein Ql (U) Negative Negative [facility] Work Phone: Squamous epithelial cells de tection in urine sediment by light microscopyon 12-04-2021 Epithelial cells.squamous LM Ql (Urine sed) 0-5 SEEN /hpf 0-5 [facility] Work Phone: Urine blood detectionon 11-17 RBC Ql (U) 25 /ul Negative [facility] Work Phone: RBC Ql (U) 0 SEEN /hpf 0-5 [facility] Work Phone: Urine clarityon 12-04-2021 Clarity (U) Cloudy Clear [facility] Work Phone: Urine color determinationon 12-04-2021 Color (U) Yellow Yellow [facility] Work Phone: Urine glucose detectionon Glucose Ql (U) Normal mg/dl Normal [facility] Work Phone: Urine leukocyte esterase det ection by dipstickon 12-04-2021 Leukocyte esterase Test strip Ql (U) 500 /ul Negative [facility] Work Phone: Urine pHon 12-04-2021 pH (U) 6.0 [pH] 5.0 - 8.0 [facility] Work Phone: Urine sediment bacteria coun t by microscopy (number/high power field)on 12-04-2021 Bacteria LM.HPF (Urine sed) [#/Area] 4 /[HPF] None Seen [facility] Work Phone: Urine specific gravity measu rementon 12-04-2021 Specific gravity (U) [Rel density] 1.015 1.002-1.030 [facility] Work Phone: [phone] Urobilinogen Auto test strip Ql (U)on 12-04-2021 Urobilinogen Ql (U) Normal mg/dl Normal [facility] Work Phone: Basophil percentageon 2021 Chloride [Moles/Vol] 105 mmol/L 98-107 [facility] Work Phone: [phone] Glucose [Mass/Vol] 96 mg/dL 74-106 [facility] Work Phone: Potassium [Moles/Vol] 3.9 mmol/L 3.5-5.1 [facility] Work Phone: [phone] Sodium [Moles/Vol] 138 mmol/L 136-145 [facility] Work Phone: [phone] WBC (Bld) [#/Vol] 7.5 10*3/uL 4.4-11.0 [facility] Work Phone: [phone] Blood erythrocytes count (nu mber/volume)on 12-01-2021 RBC (Bld) [#/Vol] 3.41 10*6/uL 4.6-6.2 [facility] Work Phone: [phone] Blood hemoglobin measurement (mass/volume)on 12-01-2021 Hemoglobin (Bld) [Mass/Vol] 8.3 g/dL 13.0-16.5 [facility] Work Phone: [phone] Blood platelet mean volumeon 12-01-2021 Platelet mean volume (Bld) [Entitic vol] 11.1 fL 6.2-12.0 [facility] Work Phone: [phone] Determination of erythrocyte mean corpuscular volume (MCV)on 12-01-2021 MCV (RBC) [Entitic vol] 86.2 fL 80-94 [facility] Work Phone: Hematocrit Auto (Bld) [Volum e fraction]on 12-01-2021 Hematocrit (Bld) [Volume fraction] 29.4 % 40-54 [facility] Work Phone: INR in Blood by Coagulation assayon 12-01-2021 INR Coag (Bld) [Relative time] 1.4 {INR} [facility] Work Phone: Laboratory - Chemistry and C hemistry - challengeon 12-01-2021 CO2 [Moles/Vol] 26.0 mmol/L 21.0-32.0 [facility] Work Phone: Urea nitrogen/Creatinine [Mass ratio] 14.6 mg/mg 10-20 [facility] Work Phone: Laboratory - Coagulationon 0 12-01-2021 PT Coag (PPP) [Time] 16.9 s 11.7-14.9 [facility] Work Phone: Laboratory - Hematology and Cell countson 12-01-2021 Erythrocyte distribution width (RBC) [Entitic vol] 68.4 fL 35.1-43.9 [facility] Work Phone: Erythrocyte distribution width (RBC) [Ratio] 26.7 % 11.6-14.6 [facility] Work Phone: MCH (RBC) [Entitic mass] 24.3 pg 27.0-32.0 [facility] Work Phone: MCHC Auto (RBC) [Mass/Vol]on 12-01-2021 MCHC (RBC) [Mass/Vol] 28.2 g/dL 32-36 [facility] Work Phone: No Panel Informationon 12-01 Estimated GFR (MDRD) Amer 99 mL/min >60 [facility] Work Phone: Comment on above: GFR Calc Estimated GFR (MDRD) Non-Af Amer 82 mL/min >60 [facility] Work Phone: Comment on above: Non- GFR Calc Platelets bldon 12-01-2021 Platelets (Bld) [#/Vol] 307 10*3/uL 150-450 [facility] Work Phone: Serum or plasma calcium luis urement (mass/volume)on 12-01-2021 Calcium [Mass/Vol] 9.5 mg/dL 8.5-10.1 [facility] Work Phone: [phone] Serum or plasma creatinine m easurement (mass/volume)on 12-01-2021 Creatinine [Mass/Vol] 0.96 mg/dL 0.70-1.30 [facility] Work Phone: Comment on above: The validity of the calculated GFR & GFRAA in patients over 70 years has not been determined. Clinical correlation is essential. Serum or plasma urea nitroge n measurement (mass/volume)on 12-01-2021 Urea nitrogen [Mass/Vol] 14 mg/dL 7-18 [facility] Work Phone: Thin prep Papanicolaou smear with manual screeningon 12-01-2021 Thin prep Papanicolaou smear with manual screening 7 - [facility] Work Phone: Absolute lymphocyte counton 11-30-2021 Lymphocytes Auto (Unsp spec) [#/Vol] 1.13 10*3/uL 0.83-4.51 [facility] Work Phone: Basophil percentageon 2021 Basophil percentage 3.4 mg/dL 2.5-4.9 [facility] Work Phone: Basophils/100 WBC (Bld) 1.5 % 0-1 [facility] Work Phone: Chloride [Moles/Vol] 107 mmol/L 98-107 [facility] Work [facility]: Eosinophils/100 WBC (Bld) 3.5 % 0-5 [facility] Work Phone: Glucose [Mass/Vol] 90 mg/dL 74-106 [facility] Work Phone: Neutrophils (Bld) [#/Vol] 6.9 10*3/uL 2.0-7.7 [facility] Work Phone: Neutrophils/100 WBC (Bld) 74.4 % 47-70 [facility] Work Phone: Potassium [Moles/Vol] 3.4 mmol/L 3.5-5.1 [facility] Work Phone: Sodium [Moles/Vol] 140 mmol/L 136-145 [facility] Work Phone: WBC (Bld) [#/Vol] 9.3 10*3/uL 4.4-11.0 [facility] Work Phone: Blood erythrocytes count (nu mber/volume)on 11-30-2021 RBC (Bld) [#/Vol] 3.21 10*6/uL 4.6-6.2 [facility] Work [facility]: Blood hemoglobin measurement (mass/volume)on 11-30-2021 Hemoglobin (Bld) [Mass/Vol] 7.8 g/dL 13.0-16.5 [facility] Work Phone: Blood lymphocytes/100 leukoc yteson 11-30-2021 Lymphocytes/100 WBC (Bld) 12.2 % 19-41 [facility] Work Phone: Blood monocytes/100 leukocyt eson 11-30-2021 Monocytes/100 WBC (Bld) 7.0 % 0-10 [facility] Work Phone: Blood platelet mean volumeon 11-30-2021 Platelet mean volume (Bld) [Entitic vol] 10.8 fL 6.2-12.0 [facility] Work Phone: Blood polychromasia detectio n by light microscopyon 11-30-2021 Polychromasia LM Ql (Bld) 2+ [facility] Work Phone: Determination of erythrocyte mean corpuscular volume (MCV)on 11-30-2021 MCV (RBC) [Entitic vol] 83.8 fL 80-94 [facility] Work Phone: Hematocrit Auto (Bld) [Volum e fraction]on 11-30-2021 Hematocrit (Bld) [Volume fraction] 26.9 % 40-54 [facility] Work Phone: INR in Blood by Coagulation assayon 11-30-2021 INR Coag (Bld) [Relative time] 1.4 {INR} [facility] Work Phone: Laboratory - Chemistry and C hemistry - challengeon 11-30-2021 CO2 [Moles/Vol] 26.0 mmol/L 21.0-32.0 [facility] Work Phone: Urea nitrogen/Creatinine [Mass ratio] 12.0 mg/mg 10-20 [facility] Work Phone: Laboratory - Coagulationon 0 11-30-2021 PT Coag (PPP) [Time] 17.1 s 11.7-14.9 [facility] Work Phone: Laboratory - Hematology and Cell countson 11-30-2021 Anisocytosis Ql (Bld) 2+ [facility] Work Phone: Erythrocyte distribution width (RBC) [Entitic vol] 64.9 fL 35.1-43.9 [facility] Work Phone: [phone] Erythrocyte distribution width (RBC) [Ratio] 24.2 % 11.6-14.6 [facility] Work Phone: Immature granulocytes/100 WBC (Bld) 1.400 % 0.0-0.9 [facility] Work Phone: Comment on above: IG% - Immature Granu locytes (promyelocytes, myelocytes and metamyelocytes) > 1% indicates that a LEFT SHIFT is Present. MCH (RBC) [Entitic mass] 24.3 pg 27.0-32.0 [facility] Work Phone: Nucleated RBC/100 WBC (Bld) [Ratio] 2.7 % 0-5 [facility] Work Phone: MCHC Auto (RBC) [Mass/Vol]on 11-30-2021 MCHC (RBC) [Mass/Vol] 29.0 g/dL 32-36 [facility] Work Phone: No Panel Informationon 11-30 Estimated Creatinine Clearance Calc 70.99 ml/min [facility] Work Phone: [phone] Estimated GFR (MDRD) Amer 105 mL/min >60 [facility] Work Phone: [phone] Comment on above: GFR Calc Estimated GFR (MDRD) Non-Af Amer 87 mL/min >60 [facility] Work Phone: [phone] Comment on above: Non- GFR Calc Anti-Gliadin IgA Antibody 3 units 0-19 [facility] Work Phone: Comment on above: Negative 0 - 19 Weak Positive 20 - 30 Moderate to Strong Positive >30 Anti-Gliadin IgG Antibody 1 units 0-19 [facility] Work Phone: Comment on above: Negative 0 - 19 Weak Positive 20 - 30 Moderate to Strong Positive >30 Endomysial IgA Antibody Negative Negative [facility] Work Phone: Tissue Transglutaminase IgG Ab <2 U/mL 0-5 [facility] Work Phone: Comment on above: Negative 0 - 5 Weak Positive 6 - 9 Positive >9 Platelets bldon 11-30-2021 Platelets (Bld) [#/Vol] 305 10*3/uL 150-450 [facility] Work Phone: Serum IgA measurement (units /volume)on 11-30-2021 IgA Qn (S) 128 mg/dL 61-437 [facility] Work Phone: [phone] Comment on above: Performed at: [address] [id number] Director: Дмитрий Tran PhD, Phone: [phone] Serum or plasma calcium luis urement (mass/volume)on 11-30-2021 Calcium [Mass/Vol] 8.9 mg/dL 8.5-10.1 [facility] Work Phone: Serum or plasma creatinine m easurement (mass/volume)on 11-30-2021 Creatinine [Mass/Vol] 0.91 mg/dL 0.70-1.30 [facility] Work Phone: Comment on above: The validity of the calculated GFR & GFRAA in patients over 70 years has not been determined. Clinical correlation is essential. Serum or plasma urea nitroge n measurement (mass/volume)on 11-30-2021 Urea nitrogen [Mass/Vol] 11 mg/dL 7-18 [facility] Work Phone: Serum tissue transglutaminas e IgA antibody assay (units/volume)on 11-30-2021 tTG IgA Qn (S) <2 U/mL 0-3 [facility] Work Phone: Comment on above: Negative 0 - 3 Weak Positive 4 - 10 Positive >10 Tissue Transglutaminase (tTG) has been identified as the endomysial antigen. Studies have demonstr- ated that endomysial IgA antibodies have over 99% specificity for gluten sensitive enteropathy. Thin prep Papanicolaou smear with manual screeningon 11-30-2021 Thin prep Papanicolaou smear with manual screening 7 5-15 [facility] Work Phone: Blood platelet adequacy dete ction by light microscopyon 11-29-2021 Platelets LM Ql (Bld) ADEQUATE ADEQ [facility] Work Phone: [phone] Hypochromatic red blood cell detectionon 11-29-2021 Hypochromia Ql (Bld) 1+ [facility] Work Phone: Serum or plasma ferritin arlyn surement (mass/volume)on 11-29-2021 Ferritin [Mass/Vol] 157 ng/mL 26-388 [facility] Work Phone: Blood manual differential co mment interpretation (narrative result)on 11-28-2021 Manual differential comment Ghassan (Bld) [Interp] SCANNED [facility] Work Phone: Laboratory - Chemistry and C hemistry - challengeon 11-28-2021 Magnesium [Mass/Vol] 2.0 mg/dL 1.6-2.6 [facility] Work Phone: Macrocytes detectionon 11-28 Macrocytes Ql (Bld) RARE [facility] Work Phone: Ovalocyte detectionon 2021 Ovalocytes LM Ql (Bld) 1+ [facility] Work Phone: Thin prep Papanicolaou smear with manual screeningon 11-28-2021 Thin prep Papanicolaou smear with manual screening 1+ [facility] Work Phone: Laboratory - Chemistry and C hemistry - challengeon 11-26-2021 Cobalamin (Vitamin B12) [Mass/Vol] 403 pg/mL 211-911 [facility] Work Phone: No Panel Informationon 11-26 Troponin I High Sensitivity 13 pg/mL 3.0-78.0 [facility] Work Phone: Comment on above: Please Note: New [place] t Units and Gender Specific Reference Ranges. For more information see Policy Stat Procedure [place] High Sensitivity Troponin (TNIH) and attachments. Absolute lymphocyte counton 11-25-2021 Lymphocytes Auto (Unsp spec) [#/Vol] 0.81 10*3/uL 0.83-4.51 [facility] Work Phone: Basophil percentageon 2021 Basophil percentage 0 SEEN /hpf 0-5 [facility] Work Phone: Basophils/100 WBC (Bld) 0.7 % 0-1 [facility] Work Phone: Eosinophils/100 WBC (Bld) 0.1 % 0-5 [facility] Work Phone: Neutrophils (Bld) [#/Vol] 5.8 10*3/uL 2.0-7.7 [facility] Work Phone: Neutrophils/100 WBC (Bld) 80.9 % 47-70 [facility] Work Phone: WBC (Bld) [#/Vol] 7.1 10*3/uL 4.4-11.0 [facility] Work Phone: [phone] Bilirubin [Mass/Vol] 0.20 mg/dL 0.20-1.00 [facility] Work Phone: [phone] Comment on above: For patients on eltr ombopag therapy, use of Dimension [place] TBIL is not recommended. Chloride [Moles/Vol] 101 mmol/L 98-107 [facility] Work Phone: [phone] Glucose [Mass/Vol] 113 mg/dL 74-106 [facility] Work Phone: [phone] Comment on above: Fasting Glucose resu lt from 100 to 125 mg/dL suggests IMPAIRED HOMEOSTASIS per A.D.A. criteria. Potassium [Moles/Vol] 4.2 mmol/L 3.5-5.1 [facility] Work Phone: [phone] Protein [Mass/Vol] 6.8 g/dL 6.4-8.2 [facility] Work Phone: [phone] Sodium [Moles/Vol] 133 mmol/L 136-145 [facility] Work Phone: [phone] Bilirubin Test strip Ql (U)o n 11-25-2021 Bilirubin Ql (U) Negative Negative [facility] Work Phone: [phone] Blood erythrocytes count (nu mber/volume)on 11-25-2021 RBC (Bld) [#/Vol] 2.36 10*6/uL 4.6-6.2 [facility] Work Phone: [phone] Blood hemoglobin measurement (mass/volume)on 11-25-2021 Hemoglobin (Bld) [Mass/Vol] 4.4 g/dL 13.0-16.5 [facility] Work Phone: [phone] Comment on above: CRITICAL VALUE VERIF IED. CALLED TO [id number] Kateryna Horn.RESULTS READ BACK BY SAME . Blood lymphocytes/100 leukoc yteson 11-25-2021 Lymphocytes/100 WBC (Bld) 11.4 % 19-41 [facility] Work Phone: Blood manual differential co mment interpretation (narrative result)on 11-25-2021 Manual differential comment Ghassan (Bld) [Interp] SCANNED [facility] Work Phone: Comment on above: ANEMIA NOTED Blood monocytes/100 leukocyt eson 11-25-2021 Monocytes/100 WBC (Bld) 6.3 % 0-10 [facility] Work Phone: Blood platelet mean volumeon 11-25-2021 Platelet mean volume (Bld) [Entitic vol] 10.2 fL 6.2-12.0 [facility] Work Phone: Determination of erythrocyte mean corpuscular volume (MCV)on 11-25-2021 MCV (RBC) [Entitic vol] 71.6 fL 80-94 [facility] Work Phone: Hematocrit Auto (Bld) [Volum e fraction]on 11-25-2021 Hematocrit (Bld) [Volume fraction] 16.9 % 40-54 [facility] Work Phone: Hemoglobin in reticulocytes (mass per reticulocyte)on 11-25-2021 Hemoglobin (Reticulocytes) [Entitic mass] 15.0 pg 30-35 [facility] Work Phone: Hypochromatic red blood cell detectionon 11-25-2021 Hypochromia Ql (Bld) 1+ [facility] Work [facility]: INR in Blood by Coagulation assayon 11-25-2021 INR Coag (Bld) [Relative time] 5.4 {INR} [facility] Work Phone: Comment on above: CRITICAL VALUE VERIF IED. CALLED TO [id number] Kateryna Horn.RESULTS READ BACK BY SAME . Iron measurement (mass/mass) on 11-25-2021 Iron (Unsp spec) [Mass/Mass] 10 ug/dL 65-175 [facility] Work Phone: Ketones Test strip Ql (U)on 11-25-2021 Ketones Ql (U) Negative Negative [facility] Work Phone: [phone] Laboratory - Chemistry and C hemistry - challengeon 11-25-2021 ALP [Catalytic activity/Vol] 54 U/L 45-117 [facility] Work Phone: [phone] ALT [Catalytic activity/Vol] 20 U/L 16-61 [facility] Work Phone: [phone] CO2 [Moles/Vol] 23.0 mmol/L 21.0-32.0 [facility] Work Phone: [phone] Globulin (S) [Mass/Vol] 3.1 g/dL 2.2-4.2 [facility] Work Phone: [phone] Urea nitrogen/Creatinine [Mass ratio] 16.7 mg/mg 10-20 [facility] Work Phone: [phone] Laboratory - Coagulationon 0 11-25-2021 PT Coag (PPP) [Time] 49.2 s 11.7-14.9 [facility] Work Phone: [phone] Laboratory - Hematology and Cell countson 11-25-2021 Erythrocyte distribution width (RBC) [Entitic vol] 48.7 fL 35.1-43.9 [facility] Work Phone: [phone] Erythrocyte distribution width (RBC) [Ratio] 18.6 % 11.6-14.6 [facility] Work Phone: [phone] Immature granulocytes/100 WBC (Bld) 0.600 % 0.0-0.9 [facility] Work Phone: [phone] Comment on above: IG% - Immature Granu locytes (promyelocytes, myelocytes and metamyelocytes) > 1% indicates that a LEFT SHIFT is Present. MCH (RBC) [Entitic mass] 18.6 pg 27.0-32.0 [facility] Work Phone: [phone] Nucleated RBC/100 WBC (Bld) [Ratio] 0.6 % 0-5 [facility] Work Phone: [phone] Lower GI hemoglobin IA Ql (S tl)on 11-25-2021 Stool Occult Blood (LACI) Positive [facility] Work Phone: MCHC Auto (RBC) [Mass/Vol]on 11-25-2021 MCHC (RBC) [Mass/Vol] 26.0 g/dL 32-36 [facility] Work Phone: Mucus LM Ql (Urine sed)on Mucus Ql (Urine sed) 0 SEEN /hpf [facility] Work Phone: [phone] Nitrite Test strip Ql (U)on 11-25-2021 Nitrite Ql (U) Negative Negative [facility] Work Phone: [phone] No Panel Informationon 11-25 Immature Reticulocyte Fraction 25.00 % 3.00-15.90 [facility] Work Phone: Reticulocyte Count 2.10 % 0.5-1.5 [facility] Work Phone: [phone] Estimated Creatinine Clearance Calc 44.86 ml/min [facility] Work Phone: [phone] Estimated GFR (MDRD) Amer 62 mL/min >60 [facility] Work Phone: Comment on above: GFR Calc Estimated GFR (MDRD) Non-Af Amer 51 mL/min >60 [facility] Work Phone: [phone] Comment on above: Non- GFR Calc Total Iron Binding Capacity 466 ug/dL 250-450 [facility] Work Phone: [phone] Platelets bldon 11-25-2021 Platelets (Bld) [#/Vol] 398 10*3/uL 150-450 [facility] Work Phone: [phone] Protein Test strip Ql (U)on 11-25-2021 Protein Ql (U) Negative Negative [facility] Work Phone: Review by pathologiston Pathologist review Ghassan (Unsp spec) [Interp] Lena gardner [facility] Work Phone: Pathologist review Ghassan (Unsp spec) [Interp] Reviewed [facility] Work Phone: [phone] Comment on above: Previous reported re sult: Lena gardner Edited by: RGOOD on 11/26/21:1239Severe Microcytic anemia.Clinical correlation necessary.Sebastian Gonzalez M.D. 11/26/21 AMENDED REPORT 11/26/21 1239 PATH REV previously reported as: Lena gardner Serum or plasma albumin luis urement (mass/volume)on 11-25-2021 Albumin [Mass/Vol] 3.7 g/dL 3.2-5.0 [facility] Work Phone: Serum or plasma albumin/glob ulin mass ratioon 11-25-2021 Albumin/Globulin [Mass ratio] 1.2 {ratio} 0.9-2.4 [facility] Work Phone: Serum or plasma calcium luis urement (mass/volume)on 11-25-2021 Calcium [Mass/Vol] 8.2 mg/dL 8.5-10.1 [facility] Work Phone: Serum or plasma creatinine m easurement (mass/volume)on 11-25-2021 Creatinine [Mass/Vol] 1.44 mg/dL 0.70-1.30 [facility] Work Phone: Comment on above: The validity of the calculated GFR & GFRAA in patients over 70 years has not been determined. Clinical correlation is essential. Serum or plasma ferritin arlyn surement (mass/volume)on 11-25-2021 Ferritin [Mass/Vol] 5 ng/mL 26-388 [facility] Work Phone: Serum or plasma folate measu rement (mass/volume)on 11-25-2021 Folate [Mass/Vol] 12.90 ng/mL 3.1-55.4 [facility] Work Phone: Serum or plasma iron saturat ion measurement (mass fraction)on 11-25-2021 Iron saturation [Mass fraction] 2.1 % 15.0-55.0 [facility] Work Phone: Serum or plasma urea nitroge n measurement (mass/volume)on 11-25-2021 Urea nitrogen [Mass/Vol] 24 mg/dL 7-18 [facility] Work Phone: Squamous epithelial cells de tection in urine sediment by light microscopyon 11-25-2021 Epithelial cells.squamous LM Ql (Urine sed) 0 SEEN /hpf 0-5 [facility] Work Phone: Thin prep Papanicolaou smear with manual screeningon 11-25-2021 Thin prep Papanicolaou smear with manual screening 10 U/L 15-37 [facility] Work Phone: Thin prep Papanicolaou smear with manual screening 9 5-15 [facility] Work Phone: Urine blood detectionon 06-0 RBC Ql (U) 50 /ul Negative [facility] Work Phone: RBC Ql (U) 5-10 SEEN /hpf 0-5 [facility] Work Phone: Urine clarityon 11-25-2021 Clarity (U) Clear Clear [facility] Work Phone: Urine color determinationon 11-25-2021 Color (U) Straw Yellow [facility] Work Phone: Urine glucose detectionon Glucose Ql (U) Normal mg/dl Normal [facility] Work Phone: Urine leukocyte esterase det ection by dipstickon 11-25-2021 Leukocyte esterase Test strip Ql (U) Negative Negative [facility] Work Phone: Urine pHon 11-25-2021 pH (U) 7.0 [pH] 5.0 - 8.0 [facility] Work Phone: Urine sediment bacteria coun t by microscopy (number/high power field)on 11-25-2021 Bacteria LM.HPF (Urine sed) [#/Area] RARE /hpf None Seen [facility] Work Phone: Urine specific gravity measu rementon 11-25-2021 Specific gravity (U) [Rel density] 1.010 1.002-1.030 [facility] Work Phone: Urobilinogen Auto test strip Ql (U)on 11-25-2021 Urobilinogen Ql (U) Normal mg/dl Normal [facility] Work Phone: INR in Blood by Coagulation assayon 11-11-2021 INR Coag (Bld) [Relative time] 1.2 {INR} [facility] Laboratory - Coagulationon 0 11-11-2021 PT Coag (PPP) [Time] 15.1 s 11.7-14.9 [facility] Work Phone: No Panel Informationon 11-08 DLCO (ml/min/mmHg) 7.15 ml/min/mmHg [facility] DLCO/VA (ml/min/mmHg/L) 1.63 ml/min/mmHg/L [facility] [id number]% PRE (L/S) 0.30 L/S [facility] FEV1 PRE (L) 0.85 L [facility] FEV1/FVC PRE (%) 0.38 % [facility] FVC PRE (L) 2.23 L [facility] PEF PRE (L/S) 1.51 L/S [facility] VA (L) 4.38 L [facility] CNCOon 10-18-2021 CNCO Letter Text Letter Text Normal [facility] INR FINGERSTICK B/Oon 2021 INR Coag (Bld) [Relative time] 2.2 EXT [facility] Quality Check No [facility] Absolute lymphocyte counton 10-08-2021 Lymphocytes Auto (Unsp spec) [#/Vol] 1.26 10*3/uL 0.83-4.51 [facility] Work Phone: Basophil percentageon 2021 Basophil percentage 10-25 SEEN /hpf 0-5 [facility] Work Phone: Basophils/100 WBC (Bld) 1.3 % 0-1 [facility] Work Phone: Bilirubin [Mass/Vol] 0.30 mg/dL 0.20-1.00 [facility] Work Phone: Comment on above: For patients on eltr ombopag therapy, use of Dimension [place] TBIL is not recommended. Chloride [Moles/Vol] 105 mmol/L 98-107 [facility] Work Phone: Eosinophils/100 WBC (Bld) 0.5 % 0-5 [facility] Work Phone: Glucose [Mass/Vol] 99 mg/dL 74-106 [facility] Work Phone: Neutrophils (Bld) [#/Vol] 4.3 10*3/uL 2.0-7.7 [facility] Work Phone: Neutrophils/100 WBC (Bld) 70.4 % 47-70 [facility] Work Phone: Potassium [Moles/Vol] 3.7 mmol/L 3.5-5.1 [facility] Work Phone: Protein [Mass/Vol] 7.5 g/dL 6.4-8.2 [facility] Work Phone: Sodium [Moles/Vol] 138 mmol/L 136-145 [facility] Work Phone: WBC (Bld) [#/Vol] 6.1 10*3/uL 4.4-11.0 [facility] Work Phone: Bilirubin Test strip Ql (U)o n 10-08-2021 Bilirubin Ql (U) Negative Negative [facility] Work Phone: Blood erythrocytes count (nu mber/volume)on 10-08-2021 RBC (Bld) [#/Vol] 3.87 10*6/uL 4.6-6.2 [facility] Work Phone: Blood hemoglobin measurement (mass/volume)on 10-08-2021 Hemoglobin (Bld) [Mass/Vol] 8.3 g/dL 13.0-16.5 [facility] Work Phone: Blood lymphocytes/100 leukoc yteson 10-08-2021 Lymphocytes/100 WBC (Bld) 20.5 % 19-41 [facility] Work Phone: Blood monocytes/100 leukocyt eson 10-08-2021 Monocytes/100 WBC (Bld) 7.0 % 0-10 [facility] Work Phone: Blood platelet mean volumeon 10-08-2021 Platelet mean volume (Bld) [Entitic vol] 10.1 fL 6.2-12.0 [facility] Work Phone: Determination of erythrocyte mean corpuscular volume (MCV)on 10-08-2021 MCV (RBC) [Entitic vol] 74.7 fL 80-94 [facility] Work Phone: Hematocrit Auto (Bld) [Volum e fraction]on 10-08-2021 Hematocrit (Bld) [Volume fraction] 28.9 % 40-54 [facility] Work Phone: INR in Blood by Coagulation assayon 10-08-2021 INR Coag (Bld) [Relative time] 2.4 {INR} [facility] Work Phone: Ketones Test strip Ql (U)on 10-08-2021 Ketones Ql (U) Negative Negative [facility] Work Phone: Laboratory - Chemistry and C hemistry - challengeon 10-08-2021 ALP [Catalytic activity/Vol] 74 U/L 45-117 [facility] Work Phone: ALT [Catalytic activity/Vol] 21 U/L 16-61 [facility] Work Phone: CO2 [Moles/Vol] 30.0 mmol/L 21.0-32.0 [facility] Work Phone: Globulin (S) [Mass/Vol] 3.7 g/dL 2.2-4.2 [facility] Work Phone: Lipase [Catalytic activity/Vol] 93 U/L 73-393 [facility] Work Phone: Urea nitrogen/Creatinine [Mass ratio] 20.2 mg/mg 10-20 [facility] Work Phone: Laboratory - Coagulationon 0 10-08-2021 PT Coag (PPP) [Time] 25.7 s 11.7-14.[address] [facility] Work Phone: Laboratory - Hematology and Cell countson 10-08-2021 Erythrocyte distribution width (RBC) [Entitic vol] 50.4 fL 35.1-43.9 [facility] Work Phone: [phone] Erythrocyte distribution width (RBC) [Ratio] 18.6 % 11.6-14.6 [facility] Work Phone: [phone] Immature granulocytes/100 WBC (Bld) 0.300 % 0.0-0.9 [facility] Work Phone: [phone] Comment on above: IG% - Immature Granu locytes (promyelocytes, myelocytes and metamyelocytes) > 1% indicates that a LEFT SHIFT is Present. MCH (RBC) [Entitic mass] 21.4 pg 27.0-32.0 [facility] Work Phone: [phone] Nucleated RBC/100 WBC (Bld) [Ratio] 0 % 0-5 [facility] Work Phone: MCHC Auto (RBC) [Mass/Vol]on 10-08-2021 MCHC (RBC) [Mass/Vol] 28.7 g/dL 32-36 [facility] Work Phone: Mucus LM Ql (Urine sed)on Mucus Ql (Urine sed) 0 SEEN /hpf [facility] Work Phone: [phone] Nitrite Test strip Ql (U)on 10-08-2021 Nitrite Ql (U) Positive Negative [facility] Work Phone: No Panel Informationon 10-08 Estimated Creatinine Clearance Calc 68.72 ml/min [facility] Work Phone: [phone] Estimated GFR (MDRD) Amer 101 mL/min >60 [facility] Work Phone: [phone] Comment on above: GFR Calc Estimated GFR (MDRD) Non-Af Amer 84 mL/min >60 [facility] Work Phone: [phone] Comment on above: Non- GFR Calc Platelets bldon 10-08-2021 Platelets (Bld) [#/Vol] 349 10*3/uL 150-450 [facility] Work Phone: [phone] Protein Test strip Ql (U)on 10-08-2021 Protein Ql (U) 100 mg/dl Negative [facility] Work Phone: [phone] Serum or plasma albumin luis urement (mass/volume)on 10-08-2021 Albumin [Mass/Vol] 3.8 g/dL 3.2-5.0 [facility] Work Phone: [phone] Serum or plasma albumin/glob ulin mass ratioon 10-08-2021 Albumin/Globulin [Mass ratio] 1.0 {ratio} 0.9-2.4 [facility] Work Phone: [phone] Serum or plasma calcium luis urement (mass/volume)on 10-08-2021 Calcium [Mass/Vol] 9.1 mg/dL 8.5-10.1 [facility] Work Phone: [phone] Serum or plasma creatinine m easurement (mass/volume)on 10-08-2021 Creatinine [Mass/Vol] 0.94 mg/dL 0.70-1.30 [facility] Work Phone: [phone] Comment on above: The validity of the calculated GFR & GFRAA in patients over 70 years has not been determined. Clinical correlation is essential. Serum or plasma urea nitroge n measurement (mass/volume)on 10-08-2021 Urea nitrogen [Mass/Vol] 19 mg/dL 7-18 [facility] Work Phone: [phone] Squamous epithelial cells de tection in urine sediment by light microscopyon 10-08-2021 Epithelial cells.squamous LM Ql (Urine sed) 0-5 SEEN /hpf 0-5 [facility] Work Phone: [phone] Thin prep Papanicolaou smear with manual screeningon 10-08-2021 Thin prep Papanicolaou smear with manual screening 12 U/L 15-37 [facility] Work Phone: [phone] Thin prep Papanicolaou smear with manual screening 3 5-15 [facility] Work Phone: [phone] Urine blood detectionon 09-18 RBC Ql (U) 10 /ul Negative [facility] Work Phone: RBC Ql (U) 0 SEEN /hpf 0-5 [facility] Work Phone: Urine clarityon 10-08-2021 Clarity (U) Sl. Cloudy Clear [facility] Work Phone: Urine color determinationon 10-08-2021 Color (U) Yellow Yellow [facility] Work Phone: Urine glucose detectionon Glucose Ql (U) Normal mg/dl Normal [facility] Work Phone: Urine leukocyte esterase det ection by dipstickon 10-08-2021 Leukocyte esterase Test strip Ql (U) 500 /ul Negative [facility] Work Phone: Urine pHon 10-08-2021 pH (U) 6.5 [pH] 5.0 - 8.0 [facility] Work Phone: Urine sediment bacteria coun t by microscopy (number/high power field)on 10-08-2021 Bacteria LM.HPF (Urine sed) [#/Area] 3 /[HPF] None Seen [facility] Work Phone: Urine specific gravity measu rementon 10-08-2021 Specific gravity (U) [Rel density] 1.010 1.002-1.030 [facility] Work Phone: Urobilinogen Auto test strip Ql (U)on 10-08-2021 Urobilinogen Ql (U) Normal mg/dl Normal [facility] Work Phone: Absolute lymphocyte counton 09-22-2021 Lymphocytes Auto (Unsp spec) [#/Vol] 1.51 10*3/uL 0.83-4.51 [facility] Work Phone: Basophil percentageon 2021 Basophils/100 WBC (Bld) 2.1 % 0-1 [facility] Work Phone: Eosinophils/100 WBC (Bld) 5.1 % 0-5 [facility] Work Phone: [phone] Neutrophils (Bld) [#/Vol] 3.7 10*3/uL 2.0-7.7 [facility] Work Phone: Neutrophils/100 WBC (Bld) 60.6 % 47-70 [facility] Work Phone: WBC (Bld) [#/Vol] 6.1 10*3/uL 4.4-11.0 [facility] Work Phone: Blood erythrocytes count (nu mber/volume)on 09-22-2021 RBC (Bld) [#/Vol] 4.09 10*6/uL 4.6-6.2 [facility] Work [facility]: Blood hemoglobin measurement (mass/volume)on 09-22-2021 Hemoglobin (Bld) [Mass/Vol] 9.1 g/dL 13.0-16.5 [facility] Work Phone: [phone] Blood lymphocytes/100 leukoc yteson 09-22-2021 Lymphocytes/100 WBC (Bld) 24.8 % 19-41 [facility] Work Phone: Blood monocytes/100 leukocyt eson 09-22-2021 Monocytes/100 WBC (Bld) 6.9 % 0-10 [facility] Work Phone: Blood platelet mean volumeon 09-22-2021 Platelet mean volume (Bld) [Entitic vol] 9.9 fL 6.2-12.0 [facility] Work Phone: Determination of erythrocyte mean corpuscular volume (MCV)on 09-22-2021 MCV (RBC) [Entitic vol] 77.5 fL 80-94 [facility] Work Phone: Hematocrit Auto (Bld) [Volum e fraction]on 09-22-2021 Hematocrit (Bld) [Volume fraction] 31.7 % 40-54 [facility] Work Phone: Laboratory - Hematology and Cell countson 09-22-2021 Erythrocyte distribution width (RBC) [Entitic vol] 56.2 fL 35.1-43.9 [facility] Work Phone: Erythrocyte distribution width (RBC) [Ratio] 19.9 % 11.6-14.6 [facility] Work Phone: Immature granulocytes/100 WBC (Bld) 0.500 % 0.0-0.9 [facility] [facility] Work Phone: Comment on above: IG% - Immature Granu locytes (promyelocytes, myelocytes and metamyelocytes) > 1% indicates that a LEFT SHIFT is Present. MCH (RBC) [Entitic mass] 22.2 pg 27.0-32.0 [facility] Work Phone: Nucleated RBC/100 WBC (Bld) [Ratio] 0 % 0-5 [facility] Work Phone: MCHC Auto (RBC) [Mass/Vol]on 09-22-2021 MCHC (RBC) [Mass/Vol] 28.7 g/dL 32-36 [facility] Work Phone: Platelets bldon 09-22-2021 Platelets (Bld) [#/Vol] 351 10*3/uL 150-450 [facility] Work Phone: CNPNon 09-21-2021 CNPN Telephone ([id number]) PEDRO PABLO SIERRA ([phone]) 1950 M T Date Time Provider Department [...] VM FULL, UNABLE TO LEAVE MESSAGE. MIKE Hardin, RN 09/21/2021 11:01 AM Signed Pt called back in about making appointment W/DR. COELLO TO DISCUSS CHOLECYSTECTOMY. He states he will make sure his ex- is awake to answer phone call to schedule appointment. Tried to send message to nurse that he previously talked with. Allergies As of Date: 09/21/2021 (No Known Allergies) Date Reviewed: 09/15/2021 Reviewed by: Anjel Braga APRN.BOTTLER HELPER - Fully Assessed Reason for Visit: Appointment [...] [J43.9] - COMPOUNDED PRESCRIPTION Aerosol supplies Dx:J44.1 NPI#[id number] - COMPOUNDED PRESCRIPTION NEBULIZER FOR HOME USE. [...] left fem (more content not included)... Normal [facility] Absolute lymphocyte counton 09-17-2021 Lymphocytes Auto (Unsp spec) [#/Vol] 1.19 10*3/uL 0.83-4.51 [facility] Work Phone: Basophil percentageon 2021 Basophil percentage 0-5 SEEN /hpf 0-5 [facility] Work Phone: Basophils/100 WBC (Bld) 1.6 % 0-1 [facility] Work Phone: Bilirubin [Mass/Vol] 0.30 mg/dL 0.20-1.00 [facility] Work Phone: Comment on above: For patients on eltr ombopag therapy, use of Dimension [place] TBIL is not recommended. Chloride [Moles/Vol] 104 mmol/L 98-107 [facility] Work Phone: Eosinophils/100 WBC (Bld) 1.1 % 0-5 [facility] Work Phone: Glucose [Mass/Vol] 100 mg/dL 74-106 [facility] Work Phone: Comment on above: Fasting Glucose resu lt from 100 to 125 mg/dL suggests IMPAIRED HOMEOSTASIS per A.D.A. criteria. Neutrophils (Bld) [#/Vol] 5.2 10*3/uL 2.0-7.7 [facility] Work Phone: Neutrophils/100 WBC (Bld) 73.0 % 47-70 [facility] Work Phone: Potassium [Moles/Vol] 4.2 mmol/L 3.5-5.1 [facility] Work Phone: Protein [Mass/Vol] 7.3 g/dL 6.4-8.2 [facility] Work Phone: Sodium [Moles/Vol] 136 mmol/L 136-145 [facility] Work Phone: WBC (Bld) [#/Vol] 7.1 10*3/uL 4.4-11.0 [facility] Work Phone: Bilirubin Test strip Ql (U)o n 09-17-2021 Bilirubin Ql (U) Negative Negative [facility] Work Phone: Blood erythrocytes count (nu mber/volume)on 09-17-2021 RBC (Bld) [#/Vol] 3.50 10*6/uL 4.6-6.2 [facility] Work Phone: Blood hemoglobin measurement (mass/volume)on 09-17-2021 Hemoglobin (Bld) [Mass/Vol] 7.9 g/dL 13.0-16.5 [facility] Work Phone: Blood lymphocytes/100 leukoc yteson 09-17-2021 Lymphocytes/100 WBC (Bld) 16.9 % 19-41 [facility] Work Phone: Blood monocytes/100 leukocyt eson 09-17-2021 Monocytes/100 WBC (Bld) 7.1 % 0-10 [facility] Work Phone: Blood platelet mean volumeon 09-17-2021 Platelet mean volume (Bld) [Entitic vol] 9.5 fL 6.2-12.0 [facility] Work Phone: Determination of erythrocyte mean corpuscular volume (MCV)on 09-17-2021 MCV (RBC) [Entitic vol] 75.1 fL 80-94 [facility] Work Phone: [phone] Hematocrit Auto (Bld) [Volum e fraction]on 09-17-2021 Hematocrit (Bld) [Volume fraction] 26.3 % 40-54 [facility] Work Phone: [phone] INR in Blood by Coagulation assayon 09-17-2021 INR Coag (Bld) [Relative time] 1.3 {INR} [facility] Work Phone: [phone] Ketones Test strip Ql (U)on 09-17-2021 Ketones Ql (U) Negative Negative [facility] Work Phone: Laboratory - Chemistry and C hemistry - challengeon 09-17-2021 ALP [Catalytic activity/Vol] 79 U/L 45-117 [facility] Work Phone: [phone] ALT [Catalytic activity/Vol] 36 U/L 16-61 [facility] Work Phone: [phone] CO2 [Moles/Vol] 25.0 mmol/L 21.0-32.0 [facility] Work Phone: Globulin (S) [Mass/Vol] 3.5 g/dL 2.2-4.2 [facility] Work Phone: [phone] Lipase [Catalytic activity/Vol] 102 U/L 73-393 [facility] Work Phone: [phone] Urea nitrogen/Creatinine [Mass ratio] 12.5 mg/mg 10-20 [facility] Work Phone: Laboratory - Coagulationon 0 09-17-2021 PT Coag (PPP) [Time] 15.4 s 11.7-14.9 [facility] Laboratory - Hematology and Cell countson 09-17-2021 Erythrocyte distribution width (RBC) [Entitic vol] 53.1 fL 35.1-43.9 [facility] Work Phone: [phone] Erythrocyte distribution width (RBC) [Ratio] 19.6 % 11.6-14.6 [facility] Work Phone: [phone] Immature granulocytes/100 WBC (Bld) 0.300 % 0.0-0.9 [facility] Work Phone: [phone] Comment on above: IG% - Immature Granu locytes (promyelocytes, myelocytes and metamyelocytes) > 1% indicates that a LEFT SHIFT is Present. MCH (RBC) [Entitic mass] 22.6 pg 27.0-32.0 [facility] Work Phone: [phone] Nucleated RBC/100 WBC (Bld) [Ratio] 0 % 0-5 [facility] Work Phone: [phone] MCHC Auto (RBC) [Mass/Vol]on 09-17-2021 MCHC (RBC) [Mass/Vol] 30.0 g/dL 32-36 [facility] Work Phone: [phone] Mucus LM Ql (Urine sed)on Mucus Ql (Urine sed) 0 SEEN /hpf [facility] Work Phone: [phone] Nitrite Test strip Ql (U)on 09-17-2021 Nitrite Ql (U) Positive Negative [facility] Work Phone: [phone] Panel Informationon 09-17 Estimated Creatinine Clearance Calc 57.68 ml/min [facility] Work Phone: [phone] Estimated GFR (MDRD) Amer 83 mL/min >60 [facility] Work Phone: [phone] Comment on above: GFR Calc Estimated GFR (MDRD) Non-Af Amer 68 mL/min >60 [facility] Work Phone: [phone] Comment on above: Non- GFR Calc Platelets bldon 09-17-2021 Platelets (Bld) [#/Vol] 342 10*3/uL 150-450 [facility] Work Phone: [phone] Protein Test strip Ql (U)on 09-17-2021 Protein Ql (U) 15 mg/dl Negative [facility] Work Phone: [phone] Serum or plasma albumin luis urement (mass/volume)on 09-17-2021 Albumin [Mass/Vol] 3.8 g/dL 3.2-5.0 [facility] Work Phone: [phone] Serum or plasma albumin/glob ulin mass ratioon 09-17-2021 Albumin/Globulin [Mass ratio] 1.1 {ratio} 0.9-2.4 [facility] Work Phone: [phone] Serum or plasma calcium luis urement (mass/volume)on 09-17-2021 Calcium [Mass/Vol] 8.7 mg/dL 8.5-10.1 [facility] Work Phone: [phone] Serum or plasma creatinine m easurement (mass/volume)on 09-17-2021 Creatinine [Mass/Vol] 1.12 mg/dL 0.70-1.30 [facility] Work Phone: Comment on above: The validity of the calculated GFR & GFRAA in patients over 70 years has not been determined. Clinical correlation is essential. Serum or plasma urea nitroge n measurement (mass/volume)on 09-17-2021 Urea nitrogen [Mass/Vol] 14 mg/dL 7-18 [facility] Work Phone: [phone] Squamous epithelial cells de tection in urine sediment by light microscopyon 09-17-2021 Epithelial cells.squamous LM Ql (Urine sed) 0-5 SEEN /hpf 0-5 [facility] Work Phone: [phone] Thin prep Papanicolaou smear with manual screeningon 09-17-2021 Thin prep Papanicolaou smear with manual screening 19 U/L 15-37 [facility] Work Phone: [phone] Thin prep Papanicolaou smear with manual screening 7 5-15 [facility] Work Phone: [phone] Urine blood detectionon 04-0 RBC Ql (U) Negative Negative [facility] Work Phone: RBC Ql (U) 0 SEEN /hpf 0-5 [facility] Work Phone: Urine clarityon 09-17-2021 Clarity (U) Clear Clear [facility] Work Phone: Urine color determinationon 09-17-2021 Color (U) Yellow Yellow [facility] Work Phone: Urine glucose detectionon Glucose Ql (U) Normal mg/dl Normal [facility] Work Phone: Urine leukocyte esterase det ection by dipstickon 09-17-2021 Leukocyte esterase Test strip Ql (U) 25 /ul Negative [facility] Work Phone: Urine pHon 09-17-2021 pH (U) 6.0 [pH] 5.0 - 8.0 [facility] Work Phone: Urine sediment bacteria coun t by microscopy (number/high power field)on 09-17-2021 Bacteria LM.HPF (Urine sed) [#/Area] 1 /[HPF] None Seen [facility] Work Phone: Urine specific gravity measu rementon 09-17-2021 Specific gravity (U) [Rel density] 1.010 1.002-1.030 [facility] Work Phone: Urobilinogen Auto test strip Ql (U)on 09-17-2021 Urobilinogen Ql (U) Normal mg/dl Normal [facility] Work Phone: PT panel Coag (PPP)on 2021 INR Coag (Bld) [Relative time] 2.1 (EXT) 2.0 - 3.0 [facility] UA DIP, URINE (POC)on 2021 BILIRUBIN UA (POCT) Negative Negative [facility] CLARITY UA (POCT) Clear [facility] COLOR UA (POCT) Yellow [facility] GLUCOSE UA (POCT) Negative Negative mg/dL [facility] HEMOGLOBIN/BLOOD UA (POCT) Trace-lysed Abnormal Negative [facility] KETONE UA (POCT) Negative Negative mg/dL [facility] LEUKOCYTES UA (POCT) Small Abnormal Negative [facility] NITRITE UA (POCT) Positive Abnormal Negative [facility] PH UA (POCT) 5.5 4.5 - 8.0 [facility] Protein Ql (U) 100 mg/dL Abnormal Negative mg/dL [facility] SPECIFIC GRAVITY UA (POCT) 1.020 1.005 - 1.030 [facility] UROBILINOGEN UA (POCT) 0.2 E.U./dL Malaika l E.U./dL [facility] Glucose Glucometer (BldC) [M ass/Vol]on 08-21-2021 Glucose [Mass/Vol] 102 mg/dL 74-106 [facility] Work Phone: Comment on above: MANAGEMENT OF PATIEN T CARE PER NURSING PROTOCOL INR in Blood by Coagulation assayon 08-21-2021 INR Coag (Bld) [Relative time] 1.2 {INR} [facility] Work Phone: Laboratory - Coagulationon 0 08-21-2021 PT Coag (PPP) [Time] 14.9 s 11.7-14.9 [facility] Work Phone: Absolute lymphocyte counton 08-20-2021 Lymphocytes Auto (Unsp spec) [#/Vol] 0.77 10*3/uL 0.83-4.51 [facility] Work Phone: Basophil percentageon 2021 Basophils/100 WBC (Bld) 0.8 % 0-1 [facility] Work Phone: Bilirubin [Mass/Vol] 0.70 mg/dL 0.20-1.00 [facility] Work Phone: Comment on above: For patients on eltr ombopag therapy, use of Dimension [place] TBIL is not recommended. Chloride [Moles/Vol] 107 mmol/L 98-107 [facility] Work Phone: Eosinophils/100 WBC (Bld) 2.2 % 0-5 [facility] Work Phone: Glucose [Mass/Vol] 99 mg/dL 74-106 [facility] Work Phone: Neutrophils (Bld) [#/Vol] 4.9 10*3/uL 2.0-7.7 [facility] Work Phone: Neutrophils/100 WBC (Bld) 77.2 % 47-70 [facility] Work Phone: Potassium [Moles/Vol] 3.7 mmol/L 3.5-5.1 [facility] Work Phone: Protein [Mass/Vol] 6.2 g/dL 6.4-8.2 [facility] Work Phone: Sodium [Moles/Vol] 139 mmol/L 136-145 [facility] Work Phone: WBC (Bld) [#/Vol] 6.3 10*3/uL 4.4-11.0 [facility] Work Phone: Blood erythrocytes count (nu mber/volume)on 08-20-2021 RBC (Bld) [#/Vol] 3.72 10*6/uL 4.6-6.2 [facility]: Blood hemoglobin measurement (mass/volume)on 08-20-2021 Hemoglobin (Bld) [Mass/Vol] 7.8 g/dL 13.0-16.5 [facility] Work Phone: Blood lymphocytes/100 leukoc yteson 08-20-2021 Lymphocytes/100 WBC (Bld) 12.2 % 19-41 [facility] Work Phone: Blood monocytes/100 leukocyt eson 08-20-2021 Monocytes/100 WBC (Bld) 6.8 % 0-10 [facility] Work Phone: Blood platelet mean volumeon 08-20-2021 Platelet mean volume (Bld) [Entitic vol] 9.7 fL 6.2-12.0 [facility] Work Phone: Determination of erythrocyte mean corpuscular volume (MCV)on 08-20-2021 MCV (RBC) [Entitic vol] 72.8 fL 80-94 [facility] Work Phone: [phone] Hematocrit Auto (Bld) [Volum e fraction]on 08-20-2021 Hematocrit (Bld) [Volume fraction] 27.1 % 40-54 [facility] Work Phone: [phone] Laboratory - Chemistry and C hemistry - challengeon 08-20-2021 ALP [Catalytic activity/Vol] 224 U/L 45-117 [facility] Work Phone: [phone] ALT [Catalytic activity/Vol] 335 U/L 16-61 [facility] Work Phone: [phone] CO2 [Moles/Vol] 27.0 mmol/L 21.0-32.0 [facility] Work Phone: [phone] Globulin (S) [Mass/Vol] 3.5 g/dL 2.2-4.2 [facility] Work Phone: [phone] Urea nitrogen/Creatinine [Mass ratio] 11.9 mg/mg 10-20 [facility] Work Phone: [phone] Laboratory - Hematology and Cell countson 08-20-2021 Erythrocyte distribution width (RBC) [Entitic vol] 50.8 fL 35.1-43.9 [facility] Work Phone: [phone] Erythrocyte distribution width (RBC) [Ratio] 19.5 % 11.6-14.6 [facility] Work Phone: [phone] Immature granulocytes/100 WBC (Bld) 0.800 % 0.0-0.9 [facility] Work Phone: [phone] Comment on above: IG% - Immature Granu locytes (promyelocytes, myelocytes and metamyelocytes) > 1% indicates that a LEFT SHIFT is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 Chloride [Moles/Vol] 100 mmol/L Normal 98-110 [facility] Comment on above: Performed By: #### KATHY HARRISON, PT ####[place] [phone] CO2 [Moles/Vol] 25 mmol/L Normal 23-32 [facility] Comment on above: Performed By: #### C KATHY JUAREZ, PT ####[place] [phone] Creatinine [Mass/Vol] 0.69 mg/dL Low 0.70-1.40 [facility] Comment on above: Performed By: #### KATHY HARRISON, PT ####[place] [phone] eGFR- Amer. >60 Normal >60 [facility] Comment on above: Performed By: #### KATHY HARRISON, PT ####[place] [phone] GFR/1.73 sq M predicted among non-blacks MDRD (S/P/Bld) [Vol rate/Area] mL/min/{1.73_m2} Normal >60 [facility] Comment on above: Performed By: #### KATHY HARRISON, PT ####[place] [phone] Glucose [Mass/Vol] 100 mg/dL Normal 65-100 [facility] Comment on above: Performed By: #### KATHY HARRISON, PT ####[place] [phone] Potassium [Moles/Vol] 3.9 mmol/L Normal 3.5-5.0 [facility] Comment on above: Performed By: #### C KATHY JAUREZ, PT ####[facility] [place], [place] [phone] Sodium [Moles/Vol] 137 mmol/L Normal 135-146 [facility] Comment on above: Performed By: #### C LARRY, BMP, PT ####[facility] [place], [place] [phone] Urea nitrogen [Mass/Vol] 8 mg/dL Low 10- [facility] Comment on above: Performed By: #### C LARRY, BMP, PT ####[facility] [place], [place] [phone] CASE MANAGEMon 10-14-2019 CASE MANAGEM HNO ID: [id number] Author: Guadalupe Yee (Sw) Service: ? Author Type: Plaster Tender Type: Care Mgt Progress Note Filed: 10/14/2019 10:14 AM Note Text: CARE MANAGEMENT DISCHARGE NOTE SERVICE DATE: 10/14/2019 SERVICE TIME: 9:59 AM LOS: 6 days Admission Date: 10/08/2019 DISCHARGE ARRANGEMENT (list agency and phone number) Discharge Arrangement: Home Intermediate Care: Nursing;OT Provider Name: [facility] CAREGIVER ASSESSMENT: Caregiver is ready, willing and able to meet the patient's needs as recommended by the inter-professional team:: Yes Does the patient have an acute stroke diagnosis, or has the patient had a stroke during this admission?: No Patient's transition needs and plan for meeting these needs: [facility] HANDOFF COMMUNICATION: Handoff to: Primary Care Physician Parcel Post Weigher Name/Phone: Daija Morton/[phone] Primary Care Physician Name/Phone: Daija Morton TRANSPORTATION ARRANGEMENTS: Transportation Arrangements: Car ADDITIONAL CONTACT RESOURCES: Discharge Information Row Name Admission (Current) from 10/08/[address] [facility] Start of Care 10/16/19 Patient will be discharged home today. Patient reports his family will be here to transport him home. D/C order and AVS was sent to [facility] agency. Patient updated on his denial notice and the need to be d/c today before noon today. Addendum- Spoke with [facility] agency about drawn INR on Monday. [facility] agency reported they would provide a SOC on Monday. Updated PA to write orders to have INR drawn on Monday per [facility] request. SIGNATURE: SHANE CLEMONS PATIENT NAME: Pedro Pablo Sierra DATE: October 14, 2019 TIME: 9:58 AM PAGER/CONTACT #: [phone] Normal [facility] CBCon 10-14-2019 Erythrocyte distribution width (RBC) [Ratio] 15.9 % High 11.5-15.0 [facility] Comment on above: Performed By: #### C LARRY BMP, PT ####[place] [phone] Hematocrit (Bld) [Volume fraction] 28.2 % Low 39.0-51.0 [facility] Comment on above: Performed By: #### C LARRY BMP, PT ####[place] [phone] Hemoglobin (Bld) [Mass/Vol] 9.0 g/dL Low 13.0-17.0 [facility] Comment on above: Performed By: #### C LARRY BMP, PT ####[phone] MCH (RBC) [Entitic mass] 29.8 pG Normal 26.0-34.0 [facility] Comment on above: Performed By: #### C BC BMP, PT ####[place] [phone] MCHC (RBC) [Mass/Vol] 31.9 g/dL Normal 30.5-36.0 [facility] Comment on above: Performed By: #### C LARRY BMP, PT ####[place] [phone] MCV (RBC) [Entitic vol] 93.4 fL Normal 80.0-100.0 [facility] Comment on above: Performed By: #### C BC BMP, PT ####[place] [phone] Platelet mean volume (Bld) [Entitic vol] 9.8 fL Normal 9.0-12.7 [facility] Comment on above: Performed By: #### C KATHY JUAREZ, PT ####[place] [address] [place], [place] [phone] Platelets (Bld) [#/Vol] 225 10*3/uL Normal 150-400 [facility] Comment on above: Performed By: #### C KATHY JUAREZ, PT ####[place] [address] [place] [phone] RBC (Bld) [#/Vol] 3.02 10*6/uL Low 4.20-6.00 [facility] Comment on above: Performed By: #### C KATHY JUAREZ, PT ####[place] [address] [place], [place] [phone] WBC (Bld) [#/Vol] 4.88 10*3/uL Normal 3.70-11.00 [facility] Comment on above: Performed By: #### C KATHY JUAREZ, PT ####[facility] [place], [place] [phone] NURSING PROGon 10-14-2019 NURSING PROG HNO ID: [id number] Author: Fran (Rn) ОЛЕГ Solorio Service: ? Author Type: Registered Nurse Type: Nursing Progress Note Filed: 10/14/2019 6:05 PM Note Text: Nursing Progress Note Patient Name: Pedro Pablo Sierra Patient Location: [address]/[id number] __ Daily Note: Patient was resting comfortably [...] note was completed by: Fran Solorio RN [facility] NUTRITIONon 10-14-2019 NUTRITION HNO ID: [id number] Author: Muna Rivas Service: Nutrition Therapy Author [...] and weekends please page the Group Pager -[phone] [facility] PLAN OF CAREon 10-14-2019 PLAN OF CARE HNO ID: [id number] Author: Sherly Quigley (Side Guider) Service: Pharmacy Author Type: Overhauler Bus Truck Type: Plan of Care Filed: 10/15/2019 11:12 AM Note Text: 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 Patient to use [facility] Bedside Delivery - NO prefer own pharmacy Insurance Information as follows: 2. Insurance card on file - NO 3. Credit card for payment - NO [facility] PLAN OF CARE HNO ID: [id number] Author: Roman Girard Service: Vascular Surgery Author [...] Morton stated that she would have her Engineering Assistant call him today to make a post dc followup virtual appt on 10/15 to go over INR results. - [facility] manager technical sales coordinated with Home health and scheduled INR check on 10/15 -Pt's ex is picking pt up for discharge to home at 1200 per pt Roman Girard APRN/LAMIN Vascular Surgery Pager: [phone] [facility] PROGRESSon 10-14-2019 PROGRESS HNO ID: [id number] Author: Ayad Tompkins MD Service: Vascular Surgery [...] -- 10/11/19 0945 activity - mobilize patient ([place]) 10/08/19 1645 pneumatic compression stockings ([place], [place]) VTE Prophylaxis: on AC ALLERGIES No [...] 29.3* PLT 225 187 173 Recent Labs 10/14/1942010/13/19 0511 10/12/19 0913 NA 137 138 135 K 3.9 3.5 3.6 BUN 8* 8* 8* CREAT 0.69* 0.68* 0.64* GLUC 100 103* 151* Recent Labs 10/14/1942010/13/19 0511 10/12/19 0913 INR 2.6* 2.9* 1.5* Assessment/Plan Impression: Pedro Pablo Sierra is a 69 year old White male who was admitted for surgical management of claudication w/ rest pain and is s/p L ELECTRIC ORGAN ASSEMBLER AND CHECKER EA w/ bovine patch, L RADHA and EIA thrombectomy, L CI and EI stenting 10/07 c/b thrombosis s/p EIA to ELECTRIC ORGAN ASSEMBLER AND CHECKER bypass graft w. Ringed PTFE 10/09. Plan: INR in range, will resume home coumadin regimen; d/c lovenox Reg diet, HLIV PO pain meds Cont. plavix Dressing changes PRN to groin Dispo: D/c home with [facility] today Ayad Tompkins MD General Surgery, PGY-3 For questions Monday through Monday 6am to 6pm please page Red Team [phone] For questions during nights (6pm - 6am) and weekends, please contact the General Surgery Case Checker pager, [phone] Normal [facility] Protimeon 10-14-2019 PT Coag (PPP) [Time] 27.5 s High 9.7-13.0 [facility] Comment on above: Performed By: #### C BC, BMP, PT ####[facility] [place], [place] [phone] PT Coag (PPP) [Time] 2.6 s High 0.9-1.3 [facility] Comment on above: Result Comment: Teri min K Antagonist (VKA) Therapeutic Range: INR 2 to 3 (Target INR of 2.5) Note: For patients treated with VKA drugs, such as warfarin, the [employer] 2012 Guideline recommends [...] Chest 2012, 141:7S-47S Gio RA, et al. [facility] 2017, 70: 252-289 Performed By: #### C BC, BMP, PT ####[place] [address] [place], [place] [phone] THERAPY NTon 10-14-2019 THERAPY NT HNO ID: [id number] Author: Shakir Alicea (Pt) Mode Service: Physical Therapy Author Type: Physical Therapist Type: Therapy (PT/OT/Speech/Resp) Filed: 10/14/2019 10:40 AM Note Text: Physical Therapy Treatment SERVICE DATE: 10/14/2019 SERVICE TIME: 1003 to 1026 ROOM: [place] [address] Recommended Discharge Disposition: Home PT Anticipated Discharge [...] ness on feet Interventions Provided: Gait Training (35999);Therapeutic Activity (74813) Therapeutic Activity (68647) Treatment Minutes: 10 1 unit Skilled Intervention(s): [...] in position prior to mobility Gait Training (94924) Treatment Minutes: 13 1 unit Skilled Intervention(s): [...] Consult : PVD s/p L LE redo ELECT[employer]IC [employer]GAN ASSEM[employer]ER AND CHECKER endarterectomy, L profundoplasty, iliac stenting on 10/08/19 Relevant Past Medical History: S/p L femoral endarterectomy/aoroili ac stenting Patient Report: Pt agreeable to participate in therapy session. Pt having coughing spells intermittently during functional mobility, stating that he gets light headed when this occurs (vascular team was notified). Home Environment Patient Lives With: Self/Alone Assistance Available: time motion analyst Entry To Home: Stairs;Other: See Comment(stair lift) [...] details for this therapy evaluation/treatment. SIGNATURE: Shakir Coello, PT PATIENT NAME: Pedro Pablo Sierra DATE: October 14, 2019 TIME: 10:37 AM [facility] THERAPY NT HNO ID: [id number] Author: Caitlin Thomas Service: Occupational Therapy Author Type: Occupational Therapist Type: Therapy (PT/OT/Speech/Resp) Filed: 10/14/2019 10:18 AM Note Text: OCCUPATIONAL THERAPY MISSED VISIT SERVICE DATE: 10/14/2019 SERVICE TIME: 920 to 920 ROOM: [place] [address] Attempted Treatment. Patient not seen due to Declined. Pt declines OT tx stating, Not until after dinner. OT explains that it is 9 in the morning with pt verbalizing understanding and continuing to decline therapy at this time. Continue OT per POC as able. SIGNATURE: Caitlin Thomas OTR/L PATIENT NAME: Pedro Pablo Sierra DATE: October 14, 2019 TIME: 10:17 AM Normal [facility] Basic Metabolic Panlon 10-12 Anion gap [Moles/Vol] 10 mmol/L Normal 9-18 [facility] Comment on above: Performed By: #### C BC BMP, PT ####[place] [phone] Calcium [Mass/Vol] 8.1 mg/dL Low 8.5-10.5 [facility] Comment on above: Performed By: #### C BC BMP, PT ####[place] [phone] Chloride [Moles/Vol] 102 mmol/L Normal 98-110 [facility] Comment on above: Performed By: #### C LARRY BMP, PT ####[place] [phone] CO2 [Moles/Vol] 26 mmol/L Normal 23-32 [facility] Comment on above: Performed By: #### C LARRY BMP, PT ####[place] [phone] Creatinine [Mass/Vol] 0.68 mg/dL Low 0.70-1.40 [facility] Comment on above: Performed By: #### KATHY HARRISON, PT ####[place] [phone] eGFR- Amer. >60 Normal >60 [facility] Comment on above: Performed By: #### C LARRY BMP, PT ####[place] [phone] GFR/1.73 sq M predicted among non-blacks MDRD (S/P/Bld) [Vol rate/Area] mL/min/{1.73_m2} Normal >60 [facility] Comment on above: Performed By: #### C LARRY BMP, PT ####[place] [phone] Glucose [Mass/Vol] 103 mg/dL High 65-100 [facility] Comment on above: Performed By: #### C BC BMP, PT ####[place] [phone] Potassium [Moles/Vol] 3.5 mmol/L Normal 3.5-5.0 [facility] Comment on above: Performed By: #### C KATHY JUAREZ, PT ####[place] [address] [place], [place] [phone] Sodium [Moles/Vol] 138 mmol/L Normal 135-146 [facility] Comment on above: Performed By: #### C KATHY JUAREZ, PT ####[place] [address] [place] [phone] Urea nitrogen [Mass/Vol] 8 mg/dL Low 10-25 [facility] Comment on above: Performed By: #### C KATHY JUAREZ, PT ####[place] [address] [place] [phone] CASE MANAGEMon 10-13-2019 CASE MANAGEM HNO ID: [id number] Author: Carly Hutchison) ОЛЕГ Man Service: Case [...] Pt states understanding. Pt aware he will [facility] services. AVS faxed to [facility] ( Waiver CM) SIGNATURE: Carly Man RN,BSN PATIENT NAME: Pedro Pablo Sierra DATE: October 13, 2019 TIME: 1:54 PM PAGER/CONTACT #: [phone] Normal [facility] CBCon 10-13-2019 Erythrocyte distribution width (RBC) [Ratio] 15.9 % High 11.5-15.0 [facility] Comment on above: Performed By: #### C KATHY JUAREZ, PT ####[facility] [place], [place] [phone] Hematocrit (Bld) [Volume fraction] 26.2 % Low 39.0-51.0 [facility] Comment on above: Performed By: #### C LARRY BMP, PT ####[place] [phone] Hemoglobin (Bld) [Mass/Vol] 8.4 g/dL Low 13.0-17.0 [facility] Comment on above: Performed By: #### C LARRY BMP, PT ####[place] [phone] MCH (RBC) [Entitic mass] 29.6 pG Normal 26.0-34.0 [facility] Comment on above: Performed By: #### C KATHY JUAREZ, PT ####[place] [phone] MCHC (RBC) [Mass/Vol] 32.1 g/dL Normal 30.5-36.0 [facility] Comment on above: Performed By: #### C KATHY JUAREZ, PT ####[place] [phone] MCV (RBC) [Entitic vol] 92.3 fL Normal 80.0-100.0 [facility] Comment on above: Performed By: #### C KATHY JUAREZ, PT ####[place] [phone] Platelet mean volume (Bld) [Entitic vol] 10.0 fL Normal 9.0-12.7 [facility] Comment on above: Performed By: #### C LARRY BMP, PT ####[place] [phone] Platelets (Bld) [#/Vol] 187 10*3/uL Normal 150-400 [facility] Comment on above: Performed By: #### C KATHY JUAREZ, PT ####[place] [phone] RBC (Bld) [#/Vol] 2.84 10*6/uL Low 4.20-6.00 [facility] Comment on above: Performed By: #### C LARRY BMP, PT ####[address] [place] [phone] WBC (Bld) [#/Vol] 4.79 10*3/uL Normal 3.70-11.00 [facility] Comment on above: Performed By: #### C BC, BMP, PT ####[address] [phone] NURSING PROGon 10-13-2019 NURSING PROG HNO ID: [id number] Author: Stefania NessRn) ОЛЕГ García Service: ? Author Type: Registered Nurse Type: Nursing Progress Note Filed: 10/13/2019 10:12 AM Note Text: Nursing Progress Note Patient Name: Pedro Pablo Sierra Patient Location: [address]/[id number] __ Daily Note:Patient expressed a desire to ambulate and get up to chair. He states he wants to get back to his normal life. Patient states he started the process to dispute his discharge. He also states his ex and daughter will not pick him up from the hospital without a plan for 24/7 care. RN inquired about his daughter and [...] note was completed by: Stefania García RN Normal [facility] NURSING PROG HNO ID: [id number] Author: Emily NessRn) ОЛЕГ Linda Service: ? Author Type: Registered Nurse Type: Nursing Progress Note Filed: 10/13/2019 12:12 AM Note Text: Nursing Progress Note Patient Name: Pedro Pablo Sierra Patient Location: [address]/[id number] __ Daily Note: 2150-- pt resting in [...] reach. 0000-- page to on-call surgery team [id number]-- Pedro Pablo Sierra [id number]-- patients L groin cath site has frequent medium amount of serosanguinous drainage, dressing changed. small hematoma still present. just wanted to make aware. thanks, Emily [phone] 0008-- call back from Noman Fish, general surgery resident, says continue monitoring incision for larger amount of bloody drainage and dehiscence. This note was completed by: Emily Linda RN [facility] PROGRESSon 10-13-2019 PROGRESS HNO ID: [id number] Author: Noman Fish MD Service: General Surgery Author Type: Resident Type: Progress Notes Filed: 10/13/2019 7:13 AM Note Text: [facility]ULAR [facility] POSTOP PROGRESS NOTE Service Date: 10/13/2019Admit Date: 10/08/2019Service Time: 7:08 AM LOS: 5 day(s) Primary Service: Vascular Surgery Vascular Physician: Ryan May MD Interval Events/Issues: Drainage from incision site. Patient angry about discharge, wants [id number]-tbf-yyahc care at home. Otherwise no acute events. [...] -- 10/11/19 0945 activity - mobilize patient ([place], [place]) 10/08/19 1645 pneumatic compression stockings ([place], [place]) VTE Prophylaxis: on AC ALLERGIES No [...] w/ rest pain and is s/p L ELECTRIC ORGAN ASSEM[employer]ER AND CHECKER EA w/ bovine patch, L RADHA and EIA thrombectomy, L CI and EI stenting 10/07 c/b thrombosis s/p : EIA to ELECT[employer]IC ORGAN ASSEMBLER AND CHECKER bypass graft w. Ringed PTFE 10/09. Plan: Continue lovenox to coumadin bridge Reg diet, HLIV PO pain meds S/p brittany-op abx No clark Cont. plavix Dressing changes PRN to groin Dispo: D/c home with [facility] today Noman Fish MD 7:09 AM 10/13/2019 See below: For questions Monday through Monday 6am to 6pm please page Red Team [phone] For questions during nights (6pm - 6am) and weekends, please contact the General Surgery Case Checker pager, [phone] Normal [facility] Protimeon 10-13-2019 PT Coag (PPP) [Time] 30.6 s High 9.7-13.0 [facility] Comment on above: Performed By: #### C BC, BMP, PT ####[facility] [place], [place] [phone] PT Coag (PPP) [Time] 2.9 s High 0.9-1.3 [facility] Comment on above: Result Comment: Teri min K Antagonist (VKA) Therapeutic Range: INR 2 to 3 (Target INR of 2.5) Note: For patients treated with VKA drugs, such as warfarin, the [employer] 2012 Guideline recommends [...] Chest 2012, 141:7S-47S Gio RA, et al. [facility] 2017, 70: 252-289 Performed By: #### C BC, BMP, PT ####[facility] [place], [place] [phone] THERAPY NTon 10-13-2019 THERAPY NT HNO ID: [id number] Author: Shakir Alicea (Pt) Mode Service: Physical Therapy Author Type: Physical Therapist Type: Therapy (PT/OT/Speech/Resp) Filed: 10/13/2019 1:35 PM Note Text: Physical Therapy Treatment SERVICE DATE: 10/13/2019 SERVICE TIME: 1235 to 1300 ROOM: [place] [address] Recommended Discharge Disposition: Home PT Anticipated Discharge [...] ness on feet Interventions Provided: Gait Training (22618) Gait Training (82498) Treatment Minutes: 25 2 units Skilled Intervention(s): [...] Consult : PVD s/p L LE redo E[employer] AS[employer] CHECKER endarterectomy, L profundoplasty, iliac stenting on 10/08/19 Relevant Past Medical History: S/p L femoral endarterectomy/aoroili ac stenting Patient Report: Pt agreeable to participate in therapy session Home Environment Patient Lives With: Self/Alone Assistance Available: time motion analyst Entry To Home: Stairs;Other: See Comment(stair lift) [...] October 13, 2019 TIME: 1:34 PM Normal [facility] Basic Metabolic Panlon 10-11 Anion gap [Moles/Vol] 11 mmol/L Normal 9-18 [facility] Comment on above: Performed By: #### C LARRY, PT, BMP ####[place] [phone] Calcium [Mass/Vol] 8.1 mg/dL Low 8.5-10.5 [facility] Comment on above: Performed By: #### C LARRY, PT, BMP ####[place] [phone] Chloride [Moles/Vol] 98 mmol/L Normal 98-110 [facility] Comment on above: Performed By: #### C BC, PT, BMP ####[place] [phone] CO2 [Moles/Vol] 26 mmol/L Normal 23-32 [facility] Comment on above: Performed By: #### C BC, PT, BMP ####[place] [phone] Creatinine [Mass/Vol] 0.64 mg/dL Low 0.70-1.40 [facility] Comment on above: Performed By: #### C BC, PT, BMP ####[place] [phone] eGFR- Amer. >60 Normal >60 [facility] Comment on above: Performed By: #### C BC, PT, BMP ####[place] [phone] GFR/1.73 sq M predicted among non-blacks MDRD (S/P/Bld) [Vol rate/Area] mL/min/{1.73_m2} Normal >60 [facility] Comment on above: Performed By: #### C BC, PT, BMP ####[place] [phone] Glucose [Mass/Vol] 151 mg/dL High 65-100 [facility] Comment on above: Performed By: #### C BC, PT, BMP ####[place] [phone] Potassium [Moles/Vol] 3.6 mmol/L Normal 3.5-5.0 [facility] Comment on above: Performed By: #### C BC, PT, BMP ####[place] [phone] Sodium [Moles/Vol] 135 mmol/L Normal 135-146 [facility] Comment on above: Performed By: #### C BC, PT, BMP ####[place] [phone] Urea nitrogen [Mass/Vol] 8 mg/dL Low 10-25 [facility] Comment on above: Performed By: #### C BC, PT, BMP ####[place] [phone] CASE MANAGEMon 10-12-2019 CASE MANAGEM HNO ID: [id number] Author: Carly NessRn) ОЛЕГ Man Service: Case Management Author Type: Registered Nurse Type: Care Mgt Progress Note Filed: 10/12/2019 12:39 PM Note Text: CARE MANAGEMENT PROGRESS NOTE SERVICE DATE: 10/12/2019 SERVICE TIME: 1230 LOS: 4 days Needs Prior to Discharge: To Be Determined Clinicals faxed to [place] SIGNATURE: Carly Man RN,BSN PATIENT NAME: Pedro Pablo Sierra DATE: October 12, 2019 TIME: 12:38 PM PAGER/CONTACT #: [phone] [facility] CASE MANAGEM HNO ID: [id number] Author: Carly (Rn) ОЛЕГ Man Service: Case [...] 12, 2019 TIME: 10:14 AM PAGER/CONTACT #: [phone] [facility] CBCon 10-12-2019 Erythrocyte distribution width (RBC) [Ratio] 16.0 % High 11.5-15.0 [facility] Comment on above: Performed By: #### C BC, PT, BMP ####[facility] [place], [place] [phone] Hematocrit (Bld) [Volume fraction] 29.3 % Low 39.0-51.0 [facility] Comment on above: Performed By: #### C BC, PT, BMP ####[facility] [place], [place] [phone] Hemoglobin (Bld) [Mass/Vol] 9.7 g/dL Low 13.0-17.0 [facility] Comment on above: Performed By: #### C BC, PT, BMP ####[place] [phone] MCH (RBC) [Entitic mass] 30.3 pG Normal 26.0-34.0 [facility] Comment on above: Performed By: #### C BC, PT, BMP ####[place] [phone] MCHC (RBC) [Mass/Vol] 33.1 g/dL Normal 30.5-36.0 [facility] Comment on above: Performed By: #### C BC, PT, BMP ####[place] [phone] MCV (RBC) [Entitic vol] 91.6 fL Normal 80.0-100.0 [facility] Comment on above: Performed By: #### C BC, PT, BMP ####[place] [phone] Platelet mean volume (Bld) [Entitic vol] 10.2 fL Normal 9.0-12.7 [facility] Comment on above: Performed By: #### C BC, PT, BMP ####[place] [phone] Platelets (Bld) [#/Vol] 173 10*3/uL Normal 150-400 [facility] Comment on above: Performed By: #### C BC, PT, BMP ####[place] [phone] RBC (Bld) [#/Vol] 3.20 10*6/uL Low 4.20-6.00 [facility] Comment on above: Performed By: #### C BC, PT, BMP ####[place] [phone] WBC (Bld) [#/Vol] 5.98 10*3/uL Normal 3.70-11.00 [facility] Comment on above: Performed By: #### C BC, PT, BMP ####[facility] [place], [place] [phone] NURSING PROGon 10-12-2019 NURSING PROG HNO ID: [id number] Author: Daphney NessRn) ОЛЕГ Baron Service: Nursing Author Type: Registered Nurse Type: Nursing Progress Note Filed: 10/12/2019 4:25 PM Note Text: Nursing Progress Note Patient Name: Pedro Pablo Sierra Patient Location: [id number] __ Daily Note: 0900: Pt up to chair with 2 assist and walker. Pt states left leg is painful, but able to bear weight. Pt does not want to be discharged at this time, PT/OT recommending skilled, pt refusing and wanting home care around the clock. Pt requesting robitussin for cough, given at 0841 per order. 1130: Pt assisted to bathroom with skilled nursing case manager and walker. Pt was able to ambulate from bathroom to bed using walker with standby assist. 1610: Incision to left groin oozing serosang drainage. Gown saturated and needed to be changed. Abd and paper tape applied to cover and collect drainage. Pt c/o pain to left groin, 01/26. Medicated with 10mg po oxycodone. This note was completed by: Daphney Baron RN Normal [facility] PROGRESSon 10-12-2019 PROGRESS HNO ID: [id number] Author: Elly (Azalea) Stephanie Service: Vascular Surgery [...] -- 10/11/19 0945 activity - mobilize patient ([place]) 10/08/19 1645 pneumatic compression stockings ([place]) VTE Prophylaxis: on AC ALLERGIES No [...] w/ rest pain and is s/p L E[employer]IC [employer]ER [employer] CHECKER EA w/ bovine patch, L RADHA and EIA thrombectomy, L CI and EI stenting 10/07 c/b thrombosis s/p : EIA to E[employer]ER bypass graft w. Ringed PTFE 10/09. Plan: [...] CRISPIN stenting on 10/23, UC, CAD previous UT, DM, HTN, HLD, COPD Overall Course: 63 [...] and weekends, please contact the General Surgery Case Checker pager, [phone] Normal [facility] Protimeon 10-12-2019 PT Coag (PPP) [Time] 15.6 s High 9.7-13.0 [facility] Comment on above: Performed By: #### C BC, PT, BMP ####[place] [id number] [place], [place] [phone] PT Coag (PPP) [Time] 1.5 s High 0.9-1.3 [facility] Comment on above: Result Comment: Teri min K Antagonist (VKA) Therapeutic Range: INR 2 to 3 (Target INR of 2.5) Note: For patients treated with VKA drugs, such as warfarin, the [employer] 2012 Guideline recommends [...] 2.5 to 3.5 (target INR of 3). Kalyatt GH, et al. Chest 2012, 141:7S-47S Gio RA, et al. [facility] 2017, 70: 252-289 Performed By: #### C BC, PT, BMP ####[place] [address] [place], [place] [phone] ANES POSTPROC EVALon 020 ANES POSTPROC EVAL HNO ID: [id number] Author: Cassie Zavala Service: ? Author Type: Anesthesiologist Type: Anesthesia Postprocedure Evaluation Filed: 10/11/2019 7:41 AM Note Text: POST ANESTHESIA EVALUATION NOTE : 1950 Procedure Summary Date: 10/10/19 Room / Location: ORA / [facility] OR Anesthesia Start: 0854 Anesthesia Stop: 1430 Procedure: ENDARTERECTOMY FEMORAL (Left [...] October 11, 2019 TIME: 7:41 AM CSN: [id number] Normal [facility] Basic Metabolic Panlon 10-10 Anion gap [Moles/Vol] 9 mmol/L Normal 9-18 [facility] Comment on above: Performed By: #### C BC, BMP, MG1, PHOS ####[address] Calcium [Mass/Vol] 7.7 mg/dL Low 8.5-10.5 [facility] Comment on above: Performed By: #### C BC, BMP, MG1, PHOS ####[address]10 Chloride [Moles/Vol] 101 mmol/L Normal 98-110 [facility] Comment on above: Performed By: #### C BC, BMP, MG1, PHOS ####[place] [address] CO2 [Moles/Vol] 26 mmol/L Normal 23-32 [facility] Comment on above: Performed By: #### C BC, BMP, MG1, PHOS ####[place] [phone] Creatinine [Mass/Vol] 0.63 mg/dL Low 0.70-1.40 [facility] Comment on above: Performed By: #### C BC, BMP, MG1, PHOS ####[place] [address] eGFR- Amer. >60 Normal >60 [facility] Comment on above: Performed By: #### C BC, BMP, MG1, PHOS ####[address] GFR/1.73 sq M predicted among non-blacks MDRD (S/P/Bld) [Vol rate/Area] mL/min/{1.73_m2} Normal >60 [facility] Comment on above: Performed By: #### C BC, BMP, MG1, PHOS ####[place] [phone] Glucose [Mass/Vol] 107 mg/dL High 65-100 [facility] Comment on above: Performed By: #### C BC, BMP, MG1, PHOS ####[place] [phone] Potassium [Moles/Vol] 3.9 mmol/L Normal 3.5-5.0 [facility] Comment on above: Performed By: #### C BC, BMP, MG1, PHOS ####[place] [phone] Sodium [Moles/Vol] 136 mmol/L Normal 135-146 [facility] Comment on above: Performed By: #### C BC, BMP, MG1, PHOS ####[place] [phone] Urea nitrogen [Mass/Vol] 8 mg/dL Low 10-25 [facility] Comment on above: Performed By: #### C BC, BMP, MG1, PHOS ####[place] [phone] CASE MGT INIT ASSon 2019 CASE MGT INIT [facility] HNO ID: [id number] Author: Bri (Rn) ОЛЕГ Swann Service: Case Management Author Type: Registered Nurse Type: Care Mgt Initial Assessment Filed: 10/11/2019 2:43 PM Note Text: CARE MANAGEMENT PROGRESS NOTE SERVICE DATE: 10/11/2019 SERVICE TIME: 2:38 PM LOS: 3 days [place] of Choice Given: Yes Level of Care Discussed: Home Care Financial Disclosure Provided: Yes Financial Disclosure Comments: discussed Needs Prior to Discharge: To Be Determined;Home Care Order CM discussed with pt discharge planning. pt has his home set up for his needs with elevator and refusing rehab at this time due to Covid 19 risks. Pt was active with [facility] for nurse visit and prefers to continue. CM made referral via ascripts, pt will need F2F for PT/OT/SN at d/c. CM flagged weekend CM staff for potential d/c this weekend and will need AVS faxed at d/c to [phone]. CM to follow as needed. SIGNATURE: Bri Swann RN,BSN PATIENT NAME: Pedro Pablo Sierra DATE: October 11, 2019 TIME: 2:38 PM PAGER/CONTACT #: [phone] Normal [facility] CBCon 10-11-2019 Erythrocyte distribution width (RBC) [Ratio] 15.8 % High 11.5-15.0 [facility] Comment on above: Performed By: #### C BC, BMP, MG1, PHOS ####[place] [phone] Hematocrit (Bld) [Volume fraction] 27.2 % Low 39.0-51.0 [facility] Comment on above: Performed By: #### C BC, BMP, MG1, PHOS ####[place] [phone] Hemoglobin (Bld) [Mass/Vol] 8.9 g/dL Low 13.0-17.0 [facility] Comment on above: Performed By: #### C BC, BMP, MG1, PHOS ####[place] [phone] MCH (RBC) [Entitic mass] 29.4 pG Normal 26.0-34.0 [facility] Comment on above: Performed By: #### C BC, BMP, MG1, PHOS ####[phone] MCHC (RBC) [Mass/Vol] 32.7 g/dL Normal 30.5-36.0 [facility] Comment on above: Performed By: #### C BC, BMP, MG1, PHOS ####[place] [phone] MCV (RBC) [Entitic vol] 89.8 fL Normal 80.0-100.0 [facility] Comment on above: Performed By: #### C BC, BMP, MG1, PHOS ####[place] [phone] Platelet mean volume (Bld) [Entitic vol] 9.9 fL Normal 9.0-12.7 [facility] Comment on above: Performed By: #### C BC, BMP, MG1, PHOS ####[place] [phone] Platelets (Bld) [#/Vol] 140 10*3/uL Low 150-400 [facility] Comment on above: Performed By: #### C BC, BMP, MG1, PHOS ####[place] [phone] RBC (Bld) [#/Vol] 3.03 10*6/uL Low 4.20-6.00 [facility] Comment on above: Performed By: #### C BC, BMP, MG1, PHOS ####[place] [phone] WBC (Bld) [#/Vol] 5.78 10*3/uL Normal 3.70-11.00 [facility] Comment on above: Performed By: #### C BC, BMP, MG1, PHOS ####[place] [phone] Magnesiumon 10-11-2019 Magnesium [Mass/Vol] 2.0 mg/dL Normal 1.7-2.6 [facility] Comment on above: Performed By: #### C BC, BMP, MG1, PHOS ####[place] [phone] NURSING PROGon 10-11-2019 NURSING PROG HNO ID: [id number] Author: Briana (Rn) ОЛЕГ Hardy Service: ? Author Type: Registered Nurse Type: Nursing Progress Note Filed: 10/11/2019 2:37 PM Note Text: Nursing Progress Note Patient Name: Pedro Pablo Sierra Patient Location: [id number]/[facility]-0 245-01 __ Daily Note: 0700. Bedside report received from marketing production manager RN. Patient is resting comfortably in bed [...] removed. 1408. Report called to RN on PK who will be resuming care of patient. 1430. Patient transferred to [facility] via bed on portable O2. All belongings and chart sent with patient. This note was completed by: Briana Hardy RN [facility] PROGRESSon 10-11-2019 PROGRESS HNO ID: [id number] Author: Noman France (Binu Fish MD Service: Vascular Surgery Author Type: [...] 1043 -- 10/08/19 1645 pneumatic compression stockings ([place],oh) VTE Prophylaxis: held for bleeding ALLERGIES No [...] CRISPIN stenting on 10/23, UC, CAD previous UT, DM, HTN, HLD, COPD Overall Course: 63 year old male with acute onset of BLE pain. Taken to OR for initiation of thrombolysis thru LCIA/TORITO Procedure/Surgeries: 1. Aortogram with bilateral ileofemoral runoff via left brachial artery 2. Left leg angiogram, 3rd order 3. Placement of lysis catheter from distal aorta to left SFA, 20cm treatment zone [facility] 07/02/2014 Thrombectomy Airway Difficulty: NA OR Course: [...] TIME: 7:24 AM PAGER/CONTACT #: See Below [phone] For questions Monday through Monday 6am to 6pm please page Red Team [phone] For questions during nights (6pm - 6am) and weekends, please contact the General Surgery Case Checker pager, [phone] Normal [facility] PROGRESS HNO ID: [id number] Author: Rashawn Huntley Service: Critical Care Author [...] INTRAVENOUS q 2 H PRN Elly (Res) Josemakova-Gallitzin 25 mcg at 10/11/19 0648 - hyoscyamine [...] DAILY Juliana (Pa) Akshat 1 Patch at 10/10/19 08 And - nicotine -- REMOVE patch OTHER DAILY Juliana (Pa) Akshat And - nicotine - verify patch OTHER q 8 H Juliana (Pa) Akshat - clopidogrel 75 mg tab(s) (PLAVIX) 75 mg ORAL DAILY Roman (Electronics Lead) Heinly 75 mg at 10/10/19 08 - polyethylene glycol 3350 17 g packet (MIRALAX, GLYCOLAX) 17 g ORAL DAILY PRN Elly (Res) Chumakova-Gallitzin - docusate sodium 100 mg cap(s) (COLACE) 100 mg ORAL BID Elly (Res) Chumakova-Gallitzin 100 mg at 10/10/192202 - budesonide 0.25 mg/2 mL 0.25 mg (PULMICORT) 0.25 mg INHALATION BID Elly (Res) Chumakova-Gallitzin 0.25 mg at 10/10/192046 And - ipratropium-albuterol 3 mL nebulizer solution (DUONEB) 3 mL INHALATION QID Elly (Res) Chumakova-Gallitzin 3 mL at 10/10/192046 - NaCl 0.9% iv infusion 100 mL/hr INTRAVENOUS CONTINUOUS Elly (Res) Chumakova-Gallitzin 100 mL/hr at 10/10/19 2000 100 mL/hr at 10/10/191999 - NaCl 0.9% 3-5 mL 3-5 mL INTRAVENOUS q 12 H Misael (Res) MD Steffany 5 mL at 10/10/19 2100 - ondansetron 4 mg tab(s) (ZOFRAN) 4 mg ORAL q 6 H PRN Misael Jeter MD Or - ondansetron (PF) 4 mg injection (ZOFRAN) 4 mg INTRAVENOUS q 6 H PRN Misael Vanegas) MD Steffany 4 mg at 10/09/19 0830 - bisacodyl 10 mg suppository (DULCOLAX) 10 mg RECTAL DAILY PRN Misael (Azalea) MD Steffany - magnesium hydroxide 400 mg/5 mL 30 mL (MOM) 30 mL ORAL/FEEDING TUBE DAILY PRN Misael Jeter MD - acetaminophen 1,000 mg tab(s) (TYLENOL) 1,000 mg ORAL q 6 H Misael Jeter MD 1,000 mg at 10/10/19 0536 - ipratropium-albuterol 3 mL nebulizer solution (DUONEB) 3 mL INHALATION q 4 H PRN Misael Jeter MD 3 mL at 10/10/19 1702 - sertraline 100 mg tab(s) (ZOLOFT) 100 mg ORAL DAILY Misael Jeter MD 100 mg at 10/10/19 0817 - mirtazapine 15 mg (REMERON) 15 mg ORAL AT BEDTIME Misael Jeter MD 15 mg at 10/10/19 2203 - gabapentin 300 mg cap(s) (NEURONTIN) 300 mg ORAL q 12 H Misael Jeter MD 300 mg at 10/10/19 2203 - pantoprazole DR 40 mg tab(s) (PROTONIX) 40 mg ORAL DAILY (6 AM) Misael Jeter MD 40 mg at 10/11/19 0635 - dextrose 40 % 15 g 15 g ORAL PRN Misael Jeter MD Or - glucagon 1 mg injection (GLUCAGEN) 1 mg INTRAMUSCULAR PRN Misael Jeter MD Or - dextrose 50% in water 25 mL syringe 12.5 g INTRAVENOUS PRN Misael Jeter MD - metoprolol tartrate (short acting) 12.5 mg tab(s) (LOPRESSOR) 12.5 mg ORAL q 12 H Misael (Res) MD Steffany 12.5 mg at 10/10/19 2203 PERTINENT CULTURES: Cultures were reviewed. Pertinent cultures from this hospitalization are listed below. Plese refer to [facility] for a full listing of cultures obtained during this hospitalization. ? N/A DIAGNOSTIC TESTS: The following diagnostic tests/findings were reviewed: ? Most recent labs and imaging results. MOST RECENT CXR FINDINGS: Bibasilar atelectasis. OPERATIVE PROCEDURE(S): Date of surgery: 10/08/19 Procedure: Left common [employer] endarterectomy with bovine path Left profundoplasty Left iliac stenting X4 (I-Cast X2, Jessica X2) Multiple angiograms with angioplasty Surgeon: Dr. May Date of surgery: 10/10/19 Procedure: Left EIA to [employer] bypass with 7mm ringed PTFE end to end proximally to the previously placed bovine patch end to side distally. Completion angiogram Retrograde open RADHA angioplasty with 8 x 80 mustang balloon. Open thrombectomy L iliac artery by leg incision. Surgeon: Dr. 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 May on 10/08/19. She is admitted to SICU post-operatively for neurovascular checks and close hemodynamic monitoring. Developed L [employer] occlusion POD2 and taken back to OR on 10/10/19 for left groin hematoma evacuation, left EIA to E[employer]ER PTFE bypass, left liac thrombectomy. Transferred to [...] -Tubes: Clark -Prophylaxis: SCDs -Dispo: Transfer to [facility] Medication and Non-Pharmacologic VTE Prophylaxis/Anticoagul ants Anticoagulant AND Antiplatelet Medications (From admission, onward) Start Dose Route Frequency Ordered Stop 10/10/19 0900 clopidogrel 75 mg tab(s) (PLAVIX) 75 mg ORAL DAILY 10/09/19 1043 -- 10/08/19 1700 activity - mobilize patient ([place], [place]) 10/08/19 1645 pneumatic compression stockings ([place]) VTE Prophylaxis: Contraindicated elevated risk of bleeding To be seen and discussed on rounds with SICU staff: Dr. Huntley ICU Checklist --------- --- VTE Prophylaxis: SIGNATURE: Misael Jeter MD PATIENT NAME: Pedro Pablo Sierra DATE: October 11, 2019 TIME: 6:40 AM PAGER/CONTACT #: [phone] [facility] STAFF PHYSICIAN NOTE OF PERSONAL INVOLVEMENT [...] HTN GERD ? Procedure/Surgeon 10/08/19 S/P L [employer] endarterectomy with bovine path, profundoplasty and iliac [...] DO 11:08 AM October 11, 2019 Normal [facility] Phosphoruson 10-11-2019 Phosphate [Mass/Vol] 1.9 mg/dL Low 2.5-4.5 [facility] Comment on above: Performed By: #### C BC, BMP, MG1, PHOS ####[address] [phone] Protimeon 10-11-2019 PT Coag (PPP) [Time] 10.9 s Normal 9.7-13.0 [facility] Comment on above: Performed By: #### P T ####[address] [phone] PT Coag (PPP) [Time] 1.0 s Normal 0.9-1.3 [facility] Comment on above: Result Comment: Teri min K Antagonist (VKA) Therapeutic Range: INR 2 to 3 (Target INR of 2.5) Note: For patients treated with VKA drugs, such as warfarin, the [employer] 2012 Guideline recommends [...] Chest 2012, 141:7S-47S Gio KENNY, et al. [facility] 2017, 70: 252-289 Performed By: #### P T ####[place] [address] [place], [place] [phone] THERAPY NTon 10-11-2019 THERAPY NT HNO ID: [id number] Author: Gini (Pt) Eugenia Melvin Service: Physical Therapy Author Type: Physical Therapist Type: Therapy (PT/OT/Speech/Resp) Filed: 10/11/2019 10:43 AM Note Text: Physical Therapy Treatment SERVICE DATE: 10/11/2019 SERVICE TIME: 0935 to 1020 ROOM: [place] [address] Recommended Discharge Disposition: Home PT Anticipated Discharge [...] Diagnosis: Reduced mobility-other Interventions Provided: Therapeutic Activity (31504);Therapeutic Exercise (08359);Gait Training (40624) Therapeutic Exercise (02794) Treatment Minutes: 15 1 unit Skilled Intervention(s): Instruction in therapeutic exercise supine, very gentle with Daisha GOOD. Edu on rationale of exercises. Therapeutic Activity (73826) Treatment Minutes: 20 1 unit Skilled Intervention(s): Instructed patient in supine to sit pushing with upper extremities to sit up Instructed patient in supine to and from sit pushing with upper extremities to sit up Instruction in sit to stand technique with proper hand placement and body positioning at edge of bed/chair Gait Training (32196) Treatment Minutes: 10 1 unit Skilled Intervention(s): Instruction in sequencing, gait pattern and Instruction in correction of gait deviations Total Timed Code Treatment Minutes: 45 Total Treatment Time (minutes): 45 SUBJECTIVE: Current Hospital Course: Chart reviewed and no significant medical updates relevant to therapy were noted Reason for Physical Therapy Consult : PVD s/p L LE redo [employer] endarterectomy, L profundoplasty, iliac stenting on 10/08/19 Relevant Past Medical History: S/p L femoral endarterectomy/aoroili ac stenting Patient Report: My Left leg is incredibly sore right now, moving is going to have to be slow. (And it is.) Home Environment Patient Lives With: Self/Alone Assistance Available: time motion analyst Entry To Home: Stairs;Other: See Comment(stair lift) [...] October 11, 2019 TIME: 10:40 AM Normal [facility] THERAPY NT HNO ID: [id number] Author: Caitlin (Ot) William Service: Occupational Therapy Author Type: Occupational Therapist Type: Therapy (PT/OT/Speech/Resp) Filed: 10/11/2019 6:48 AM Note Text: OCCUPATIONAL THERAPY MISSED VISIT SERVICE DATE: 10/11/2019 SERVICE TIME: 0647 to 0647 ROOM: [place] [address] Attempted Treatment. Patient not seen due to Incomplete Orders. Pt is currently on bedrest. Please update activity orders when medically appropriate for participation in Occupational Therapy treatment and out of bed mobility. Thank you. SIGNATURE: Caitlin Thomas OTR/L PATIENT NAME: Pedro Pablo Sierra DATE: October 11, 2019 TIME: 6:47 AM Normal [facility] ABG Complete Eval FOR WEST U SE ONLYon 10-10-2019 Base Excess 1 mmol/L Normal [facility] Comment on above: Result Comment: -3 t o 3 Performed By: #### A BGRTC ####[place] [phone] Calcium [Mass/Vol] 1.29 mmol/L Normal 1.15-1.35 [facility] Comment on above: Performed By: #### A BGRTC ####[place] [phone] Carboxyhemoglobin,Art 1.0 % Normal <2.0 [facility] Comment on above: Performed By: #### A BGRTC ####[place] [phone] Chloride, Whole Bld FOR WEST USE ONLY 105 mmol/L Normal 98-107 [facility] Comment on above: Performed By: #### A BGRTC ####[place] [phone] CO2 [Moles/Vol] 27 mmol/L Normal 22.0-28.0 [facility] Comment on above: Performed By: #### A BGRTC ####[place] [phone] Glucose [Mass/Vol] 132 mg/dL High 65-100 [facility] Comment on above: Performed By: #### A BGRTC ####[place] [phone] HCO3 (Bld) [Moles/Vol] 26 mmol/L Normal 22-26 [facility] Comment on above: Performed By: #### A BGRTC ####[place] [phone] Hematocrit (Bld) [Volume fraction] 26.3 % Low 42.0-52.0 [facility] Comment on above: Performed By: #### A BGRTC ####[place] [phone] Hemoglobin (Bld) [Mass/Vol] 8.5 g/dL Low 14-18 [facility] Comment on above: Performed By: #### A BGRTC ####[place] [phone] Lactate [Moles/Vol] 1.5 mmol/L Normal 0.4-2.0 [facility] Comment on above: Performed By: #### A BGRTC ####[place] [phone] Methemoglobin 1.4 % Normal 0.4-1.5 [facility] Comment on above: Performed By: #### A BGRTC ####[place] [phone] O2 Administered 21.0 Normal [facility] Comment on above: Performed By: #### A BGRTC ####[place] [phone] Oxygen (Bld) [Partial pressure] 136 mm Hg High 80-100 [facility] Comment on above: Performed By: #### A BGRTC ####[place] [phone] Oxygen (Bld) [Partial pressure] 99 % High 90-98 [facility] Comment on above: Performed By: #### A BGRTC ####[place] [phone] Oxyhemoglobin, Art. 96 % Normal 94-100 [facility] Comment on above: Performed By: #### A BGRTC ####[place] [phone] pCO2 46 mm Hg Normal 35-48 [facility] Comment on above: Performed By: #### A BGRTC ####[place] [phone] pH (Bld) 7.37 [pH] Normal 7.35-7.45 [facility] Comment on above: Performed By: #### A BGRTC ####[place] [phone] PO2FI FOR WEST USE ONLY 648 mmHG High 400-500 [facility] Comment on above: Performed By: #### A BGRTC ####[place] [phone] Potassium [Moles/Vol] 3.9 mmol/L Normal 3.5-5.0 [facility] Comment on above: Performed By: #### A BGRTC ####[place] [phone] Sodium [Moles/Vol] 137 mmol/L Normal 135-145 [facility] Comment on above: Performed By: #### A BGRTC ####[place] [phone] Base Excess 2 mmol/L Normal [facility] Comment on above: Result Comment: -3 t o 3 Performed By: #### A BGRTC ####[place] [phone] Calcium [Mass/Vol] 1.09 mmol/L Low 1.15-1.35 [facility] Comment on above: Performed By: #### A BGRTC ####[place] [phone] Carboxyhemoglobin,Art 1.3 % Normal <2.0 [facility] Comment on above: Performed By: #### A BGRTC ####[place] [phone] Chloride, Whole Bld FOR WEST USE ONLY 106 mmol/L Normal 98-107 [facility] Comment on above: Performed By: #### A BGRTC ####[place] [phone] CO2 [Moles/Vol] 28 mmol/L Normal 22.0-28.0 [facility] Comment on above: Performed By: #### A BGRTC ####[place] [phone] Glucose [Mass/Vol] 129 mg/dL High 65-100 [facility] Comment on above: Performed By: #### A BGRTC ####[place] [phone] HCO3 (Bld) [Moles/Vol] 27 mmol/L High 22-26 [facility] Comment on above: Performed By: #### A BGRTC ####[place] [phone] Hematocrit (Bld) [Volume fraction] 24.6 % Low 42.0-52.0 [facility] Comment on above: Performed By: #### A BGRTC ####[place] [phone] Hemoglobin (Bld) [Mass/Vol] 7.9 g/dL Low 14-18 [facility] Comment on above: Performed By: #### A BGRTC ####[place] [phone] Lactate [Moles/Vol] 1.1 mmol/L Normal 0.4-2.0 [facility] Comment on above: Performed By: #### A BGRTC ####[place] [phone] Methemoglobin 1.2 % Normal 0.4-1.5 [facility] Comment on above: Performed By: #### A BGRTC ####[place] [phone] O2 Administered 21.0 Normal [facility] Comment on above: Performed By: #### A BGRTC ####[place] [phone] Oxygen (Bld) [Partial pressure] 164 mm Hg High 80-100 [facility] Comment on above: Performed By: #### A BGRTC ####[place] [phone] Oxygen (Bld) [Partial pressure] 99 % High 90-98 [facility] Comment on above: Performed By: #### A BGRTC ####[place] [phone] Oxyhemoglobin, Art. 97 % Normal 94-100 [facility] Comment on above: Performed By: #### A BGRTC ####[place] [phone] pCO2 44 mm Hg Normal 35-48 [facility] Comment on above: Performed By: #### A BGRTC ####[place] [phone] pH (Bld) 7.40 [pH] Normal 7.35-7.45 [facility] Comment on above: Performed By: #### A BGRTC ####[place] [phone] PO2FI FOR WEST USE ONLY 781 mmHG High 400-500 [facility] Comment on above: Performed By: #### A BGRTC ####[place] [phone] Potassium [Moles/Vol] 3.6 mmol/L Normal 3.5-5.0 [facility] Comment on above: Performed By: #### A BGRTC ####[place] [phone] Sodium [Moles/Vol] 137 mmol/L Normal 135-145 [facility] Comment on above: Performed By: #### A BGRTC ####[place] [phone] ALLIED HEALTHon 10-10-2019 ALLIED HEALTH HNO ID: [id number] Author: William Renee (Rt) Service: Radiology Author Type: [employer] Type: Allied Health Filed: 10/10/2019 6:31 AM [...] RT Víctor October 10, 2019 6:31 AM [facility] ANES PRE-OPon 10-10-2019 ANES PRE-OP HNO ID: [id number] Author: Joey Sequeira Service: ? Author Type: [...] (+) Hypertension (+) PVD (peripheral vascular disease) ([facility]) (+) s/p left femoral endarterectomy/aortoil iac stenting 10/08/2019 (now with L ELECTRIC ORGAN ASSEMBLER AND CHECKER occlusion) PULMONARY (+) COPD (chronic obstructive pulmonary disease) ([facility]) (+) PJ (obstructive sleep apnea) ANESTHESIA (+) PJ (obstructive sleep apnea) NEURO-PSYCH (+) Headache GI (+) GERD (gastroesophageal reflux disease) Other (+) Anemia due to acute blood loss (Hgb 7.4 this AM; will order 2 units PRBCs) (+) Lupus anticoagulant disorder (HCC) I - PHYSICAL EVALUATION AIRWAY Patient intubated: [...] (iso-osmotic) 100 mL (ANCEF) 2 g INTRAVENOUS Case Checker to OR - NaCl 0.9% iv infusion [...] movements. - COMPOUNDED PRESCRIPTION Aerosol supplies Dx:J44.1 NPI#[id number] - ipratropium-albuterol (DUONEB) 0.5 mg-3 mg(2.5 mg [...] October 10, 2019 TIME: 8:21 AM CSN: [id number] Normal [facility] APTTon 10-10-2019 aPTT Coag (Bld) [Time] 25.4 s Normal 23.0-32.4 [facility] Comment on above: Result Comment: Unfr actionated [...] laboratory APTT reagent in use throughout the [facility]. Performed By: #### C BCDIF, PTT, FIBCT, PT ####[facility] [place], [place] [phone] aPTT Coag (Bld) [Time] 126.3 s High 23.0-32.4 [facility] Comment on above: Result Comment: Unfr actionated [...] laboratory APTT reagent in use throughout the [facility]. Called to and read back by: Landry Quintana RN [place] Chaya [facility] 10/10/19 [address] Performed By: #### C BCDIF, BMP, MG1, PHOS, PTT, PT ####[facility] [place] [address] [phone] aPTT Coag (Bld) [Time] 44.1 s High 23.0-32.4 [facility] Comment on above: Result Comment: Unfr actionated [...] laboratory APTT reagent in use throughout the [facility]. Performed By: #### P TT ####[place] [phone] Basic Metabolic Panlon 10-09 Anion gap [Moles/Vol] 11 mmol/L Normal 9-18 [facility] Comment on above: Performed By: #### C BCDIF, BMP, MG1, PHOS, PTT, PT ####[place] [phone] Calcium [Mass/Vol] 8.0 mg/dL Low 8.5-10.5 [facility] Comment on above: Performed By: #### C BCDIF, BMP, MG1, PHOS, PTT, PT ####[place] [phone] Chloride [Moles/Vol] 103 mmol/L Normal 98-110 [facility] Comment on above: Performed By: #### C BCDIF, BMP, MG1, PHOS, PTT, PT ####[place] [phone] CO2 [Moles/Vol] 24 mmol/L Normal 23-32 [facility] Comment on above: Performed By: #### C BCDIF, BMP, MG1, PHOS, PTT, PT ####[place] [phone] Creatinine [Mass/Vol] 0.68 mg/dL Low 0.70-1.40 [facility] Comment on above: Performed By: #### C BCDIF, BMP, MG1, PHOS, PTT, PT ####[place] [phone] eGFR- Amer. >60 Normal >60 [facility] Comment on above: Performed By: #### C BCDIF, BMP, MG1, PHOS, PTT, PT ####[place] [phone] GFR/1.73 sq M predicted among non-blacks MDRD (S/P/Bld) [Vol rate/Area] mL/min/{1.73_m2} Normal >60 [facility] Comment on above: Performed By: #### C BCDIF, BMP, MG1, PHOS, PTT, PT ####[place] [phone] Glucose [Mass/Vol] 127 mg/dL High 65-100 [facility] Comment on above: Performed By: #### C BCDIF, BMP, MG1, PHOS, PTT, PT ####[place] [phone] Potassium [Moles/Vol] 4.3 mmol/L Normal 3.5-5.0 [facility] Comment on above: Performed By: #### C BCDIF, BMP, MG1, PHOS, PTT, PT ####[place] [phone] Sodium [Moles/Vol] 138 mmol/L Normal 135-146 [facility] Comment on above: Performed By: #### C BCDIF, BMP, MG1, PHOS, PTT, PT ####[place] [phone] Urea nitrogen [Mass/Vol] 9 mg/dL Low 10-25 [facility] Comment on above: Performed By: #### C BCDIF, BMP, MG1, PHOS, PTT, PT ####[place] [phone] Anion gap [Moles/Vol] 8 mmol/L Low 9-18 [facility] Comment on above: Performed By: #### C BC, BMP, MG1, PHOS ####[place] [address] Calcium [Mass/Vol] 7.9 mg/dL Low 8.5-10.5 [facility] Comment on above: Performed By: #### C BC, BMP, MG1, PHOS ####[place] [address] Chloride [Moles/Vol] 101 mmol/L Normal 98-110 [facility] Comment on above: Performed By: #### C BC, BMP, MG1, PHOS ####[place] [address] CO2 [Moles/Vol] 27 mmol/L Normal 23-32 [facility] Comment on above: Performed By: #### C BC, BMP, MG1, PHOS ####[place] [address] Creatinine [Mass/Vol] 0.69 mg/dL Low 0.70-1.40 [facility] Comment on above: Performed By: #### C BC, BMP, MG1, PHOS ####[place] [phone] eGFR- Amer. >60 Normal >60 [facility] Comment on above: Performed By: #### C BC, BMP, MG1, PHOS ####[place] [phone] GFR/1.73 sq M predicted among non-blacks MDRD (S/P/Bld) [Vol rate/Area] mL/min/{1.73_m2} Normal >60 [facility] Comment on above: Performed By: #### C BC, BMP, MG1, PHOS ####[place] [id number] [place] [phone] Glucose [Mass/Vol] 107 mg/dL High 65-100 [facility] Comment on above: Performed By: #### C BC, BMP, MG1, PHOS ####[place] [phone] Potassium [Moles/Vol] 3.8 mmol/L Normal 3.5-5.0 [facility] Comment on above: Performed By: #### C BC, BMP, MG1, PHOS ####[place] [phone] Sodium [Moles/Vol] 136 mmol/L Normal 135-146 [facility] Comment on above: Performed By: #### C BC, BMP, MG1, PHOS ####[place] [phone] Urea nitrogen [Mass/Vol] 11 mg/dL Normal 10-25 [facility] Comment on above: Performed By: #### C BC, BMP, MG1, PHOS ####[place] [phone] CASE MANAGEMon 10-10-2019 CASE MANAGEM HNO ID: [id number] Author: Bri Hutchison) ОЛЕГ Swann Service: Case [...] 10, 2019 TIME: 4:23 PM PAGER/CONTACT #: [phone] Normal [facility] CBCon 10-10-2019 Erythrocyte distribution width (RBC) [Ratio] 16.0 % High 11.5-15.0 [facility] Comment on above: Performed By: #### C BC, BMP, MG1, PHOS ####[place] [phone] Hematocrit (Bld) [Volume fraction] 23.2 % Low 39.0-51.0 [facility] Comment on above: Performed By: #### C BC, BMP, MG1, PHOS ####[place] [phone] Hemoglobin (Bld) [Mass/Vol] 7.5 g/dL Low 13.0-17.0 [facility] Comment on above: Performed By: #### C BC, BMP, MG1, PHOS ####[place] [phone] MCH (RBC) [Entitic mass] 30.1 pG Normal 26.0-34.0 [facility] Comment on above: Performed By: #### C BC, BMP, MG1, PHOS ####[place] [phone] MCHC (RBC) [Mass/Vol] 32.3 g/dL Normal 30.5-36.0 [facility] Comment on above: Performed By: #### C BC, BMP, MG1, PHOS ####[place] [phone] MCV (RBC) [Entitic vol] 93.2 fL Normal 80.0-100.0 [facility] Comment on above: Performed By: #### C BC, BMP, MG1, PHOS ####[place] [phone] Platelet mean volume (Bld) [Entitic vol] 9.8 fL Normal 9.0-12.7 [facility] Comment on above: Performed By: #### C BC, BMP, MG1, PHOS ####[place] [phone] Platelets (Bld) [#/Vol] 180 10*3/uL Normal 150-400 [facility] Comment on above: Performed By: #### C BC, BMP, MG1, PHOS ####[place] [phone] RBC (Bld) [#/Vol] 2.49 10*6/uL Low 4.20-6.00 [facility] Comment on above: Performed By: #### C BC, BMP, MG1, PHOS ####[place] [phone] WBC (Bld) [#/Vol] 6.64 10*3/uL Normal 3.70-11.00 [facility] Comment on above: Performed By: #### C BC, BMP, MG1, PHOS ####[place] [phone] CBC and Differentialon 10-09 Abs Baso 0.03 k/uL Normal <0.11 [facility] Comment on above: Performed By: #### C BCDIF, PTT, FIBCT, PT ####[place] [phone] Abs Wayne 0.69 k/uL Normal <0.87 [facility] Comment on above: Performed By: #### C BCDIF, PTT, FIBCT, PT ####[place] [phone] Abs Neut 5.56 k/uL Normal 1.45-7.50 [facility] Comment on above: Performed By: #### C BCDIF, PTT, FIBCT, PT ####[place] [phone] Basophils/100 WBC (Bld) 0.4 % Normal [facility] Comment on above: Performed By: #### C BCDIF, PTT, FIBCT, PT ####[place] [phone] Eosinophils (Bld) [#/Vol] 10*3/uL Normal <0.46 [facility] Comment on above: Performed By: #### C BCDIF, PTT, FIBCT, PT ####[place] [phone] Eosinophils/100 WBC (Bld) 0.3 % Normal [facility] Comment on above: Performed By: #### C BCDIF, PTT, FIBCT, PT ####[place] [phone] Erythrocyte distribution width (RBC) [Ratio] 16.9 % High 11.5-15.0 [facility] Comment on above: Performed By: #### C BCDIF, PTT, FIBCT, PT ####[place] [phone] Hematocrit (Bld) [Volume fraction] 21.7 % Low 39.0-51.0 [facility] Comment on above: Performed By: #### C BCDIF, PTT, FIBCT, PT ####[place] [phone] Hemoglobin (Bld) [Mass/Vol] 7.1 g/dL Low 13.0-17.0 [facility] Comment on above: Performed By: #### C BCDIF, PTT, FIBCT, PT ####[place] [phone] Lymphocytes (Bld) [#/Vol] 1.03 10*3/uL Normal 1.00-4.00 [facility] Comment on above: Performed By: #### C BCDIF, PTT, FIBCT, PT ####[place] [phone] Lymphocytes/100 WBC (Bld) 14.1 % Normal [facility] Comment on above: Performed By: #### C BCDIF, PTT, FIBCT, PT ####[place] [phone] MCH (RBC) [Entitic mass] 29.5 pG Normal 26.0-34.0 [facility] Comment on above: Performed By: #### C BCDIF, PTT, FIBCT, PT ####[place] [phone] MCHC (RBC) [Mass/Vol] 32.7 g/dL Normal 30.5-36.0 [facility] Comment on above: Performed By: #### C BCDIF, PTT, FIBCT, PT ####[place] [phone] MCV (RBC) [Entitic vol] 90.0 fL Normal 80.0-100.0 [facility] Comment on above: Performed By: #### C BCDIF, PTT, FIBCT, PT ####[place] [phone] Monocytes/100 WBC (Bld) 9.4 % Normal [facility] Comment on above: Performed By: #### C BCDIF, PTT, FIBCT, PT ####[place] [phone] Neutrophils/100 WBC (Bld) 75.8 % Normal [facility] Comment on above: Performed By: #### C BCDIF, PTT, FIBCT, PT ####[place] [phone] Platelet mean volume (Bld) [Entitic vol] 10.0 fL Normal 9.0-12.7 [facility] Comment on above: Performed By: #### C BCDIF, PTT, FIBCT, PT ####[place] [phone] Platelets (Bld) [#/Vol] 167 10*3/uL Normal 150-400 [facility] Comment on above: Performed By: #### C BCDIF, PTT, FIBCT, PT ####[place] [phone] RBC (Bld) [#/Vol] 2.41 10*6/uL Low 4.20-6.00 [facility] Comment on above: Performed By: #### C BCDIF, PTT, FIBCT, PT ####[place] [phone] WBC (Bld) [#/Vol] 7.33 10*3/uL Normal 3.70-11.00 [facility] Comment on above: Performed By: #### C BCDIF, PTT, FIBCT, PT ####[place] [address] Abs Baso 0.04 k/uL Normal <0.11 [facility] Comment on above: Performed By: #### C BCDIF, BMP, MG1, PHOS, PTT, PT ####[place] [address] Abs Wayne 0.56 k/uL Normal <0.87 [facility] Comment on above: Performed By: #### C BCDIF, BMP, MG1, PHOS, PTT, PT ####[place] [address] Abs Neut 5.40 k/uL Normal 1.45-7.50 [facility] Comment on above: Performed By: #### C BCDIF, BMP, MG1, PHOS, PTT, PT ####[place] [phone] Basophils/100 WBC (Bld) 0.6 % Normal [facility] Comment on above: Performed By: #### C BCDIF, BMP, MG1, PHOS, PTT, PT ####[place] [phone] DTYPE Auto Diff Normal [facility] Comment on above: Performed By: #### C BCDIF, PTT, FIBCT, PT ####[address] Performed By: #### C BCDIF, BMP, MG1, PHOS, PTT, PT ####[address] Eosinophils (Bld) [#/Vol] 0.06 10*3/uL Normal <0.46 [facility] Comment on above: Performed By: #### C BCDIF, BMP, MG1, PHOS, PTT, PT ####[place] [phone] Eosinophils/100 WBC (Bld) 0.8 % Normal [facility] Comment on above: Performed By: #### C BCDIF, BMP, MG1, PHOS, PTT, PT ####[place] [phone] Erythrocyte distribution width (RBC) [Ratio] 16.6 % High 11.5-15.0 [facility] Comment on above: Performed By: #### C BCDIF, BMP, MG1, PHOS, PTT, PT ####[place] [phone] Hematocrit (Bld) [Volume fraction] 24.9 % Low 39.0-51.0 [facility] Comment on above: Performed By: #### C BCDIF, BMP, MG1, PHOS, PTT, PT ####[place] [phone] Hemoglobin (Bld) [Mass/Vol] 8.3 g/dL Low 13.0-17.0 [facility] Comment on above: Performed By: #### C BCDIF, BMP, MG1, PHOS, PTT, PT ####[place] [phone] Lymphocytes (Bld) [#/Vol] 1.07 10*3/uL Normal 1.00-4.00 [facility] Comment on above: Performed By: #### C BCDIF, BMP, MG1, PHOS, PTT, PT ####[place] [phone] Lymphocytes/100 WBC (Bld) 15.0 % Normal [facility] Comment on above: Performed By: #### C BCDIF, BMP, MG1, PHOS, PTT, PT ####[place] [phone] MCH (RBC) [Entitic mass] 30.3 pG Normal 26.0-34.0 [facility] Comment on above: Performed By: #### C BCDIF, BMP, MG1, PHOS, PTT, PT ####[place] [phone] MCHC (RBC) [Mass/Vol] 33.3 g/dL Normal 30.5-36.0 [facility] Comment on above: Performed By: #### C BCDIF, BMP, MG1, PHOS, PTT, PT ####[place] [phone] MCV (RBC) [Entitic vol] 90.9 fL Normal 80.0-100.0 [facility] Comment on above: Performed By: #### C BCDIF, BMP, MG1, PHOS, PTT, PT ####[place] [phone] Monocytes/100 WBC (Bld) 7.9 % Normal [facility] Comment on above: Performed By: #### C BCDIF, BMP, MG1, PHOS, PTT, PT ####[place] [phone] Neutrophils/100 WBC (Bld) 75.7 % Normal [facility] Comment on above: Performed By: #### C BCDIF, BMP, MG1, PHOS, PTT, PT ####[place] [phone] Platelet mean volume (Bld) [Entitic vol] 9.8 fL Normal 9.0-12.7 [facility] Comment on above: Performed By: #### C BCDIF, BMP, MG1, PHOS, PTT, PT ####[place] [phone] Platelets (Bld) [#/Vol] 173 10*3/uL Normal 150-400 [facility] Comment on above: Performed By: #### C BCDIF, BMP, MG1, PHOS, PTT, PT ####[place] [id number] [place] [phone] RBC (Bld) [#/Vol] 2.74 10*6/uL Low 4.20-6.00 [facility] Comment on above: Performed By: #### C BCDIF, BMP, MG1, PHOS, PTT, PT ####[place] [phone] WBC (Bld) [#/Vol] 7.13 10*3/uL Normal 3.70-11.00 [facility] Comment on above: Performed By: #### C BCDIF, BMP, MG1, PHOS, PTT, PT ####[place] [id number] [place], [place] [phone] Fibrinogenon 10-10-2019 Fibrinogen 410 mg/dL High 200-400 [facility] Comment on above: Performed By: #### C BCDIF, PTT, FIBCT, PT ####[facility] [place] [address] [phone] HISTORY PHYSICALon 0 HISTORY PHYSICAL HNO ID: [id number] Author: Ryan May MD Service: Vascular Surgery Author Type: Physician Type: HANDP Filed: 10/10/2019 9:03 AM Note Text: As a result of the 09/03/19 order by [facility] of Health Director Libby Harris M.D. to cancel non-essential surgeries that would use PPE, unless special criteria are met, I have reviewed the clinical record for this patient and have determined that the scheduled procedure meets the criteria to go forward because there is a threat of permanent dysfunction of an extremity or organ system. Possible thrombosis of the left ELECTRIC ORGAN ASSEMBLER AND CHECKER graft. Possible hematoma. Plan to reexplore, evacuate hematoma, possible ileo-femoral bypass vs fem-fem bypass. Jermaine May MD Normal [facility] Hematocriton 10-10-2019 Hematocrit (Bld) [Volume fraction] 23.1 % Low 39.0-51.0 [facility] Comment on above: Performed By: #### H CT, HGB ####[place] [address] Hemoglobinon 10-10-2019 Hemoglobin (Bld) [Mass/Vol] 7.4 g/dL Low 13.0-17.0 [facility] Comment on above: Performed By: #### H CT, HGB ####[place] [address] Magnesiumon 10-10-2019 Magnesium [Mass/Vol] 1.8 mg/dL Normal 1.7-2.6 [facility] Comment on above: Performed By: #### C BCDIF, BMP, MG1, PHOS, PTT, PT ####[place] [address] Magnesium [Mass/Vol] 2.0 mg/dL Normal 1.7-2.6 [facility] Comment on above: Performed By: #### C BC, BMP, MG1, PHOS ####[place] [address] NURSING PROGon 10-10-2019 NURSING PROG HNO ID: [id number] Author: Yeimi (Rn) ОЛЕГ Wong Service: ? Author Type: Registered Nurse Type: Nursing Progress Note Filed: 10/11/2019 7:38 AM Note Text: Nursing Progress Note Patient Name: Pedro Pablo Sierra Patient Location: [id number]/[facility] __ Daily Note: 1899 Received bedside report from Josse AHUJA. 1999 Assessment complete. Please see all flowsheets. 2100 2 units of blood ordered per Dr. Johnson. 2199 Started 1 unit of PRBC per order. 2229 Dr. Johnson and primer charger Daphney rounding on pt. SBAR given. New orders received. 2214 Spoke [id number] with Dr. Johnson. Okay to go by cuff pressure. 2345 Started 1 unit of PRBC per order. 0000 Reassessment complete. Please see all flowsheets. 0130 Dr. Johnson at bedside. SBAR given. Per Dr. Johnson, draw AM labs at 0330. 0400 Reassessment complete. Please see all flowsheets. 0715 Bedside report given to Briana AHUJA. [facility] NURSING PROG HNO ID: [id number] Author: Fran NessRn) ОЛЕГ Quintana Service: Critical Care Author Type: Registered Nurse Type: Nursing Progress Note Filed: 10/10/2019 7:55 PM Note Text: Nursing Progress Note Patient Name: Pedro Pablo Sierra Patient Location: [id number]/[facility]-0 245- __ Daily Note: 0800: Full assessment complete. 0810: Talking with Misael, who would like amlodipine held this AM, okay to give metoprolol, and okayed by vascular surgery resident to give plavix. 0830: OR team at bedside. SBAR report. Plan to give cefazolin and PRBCs in OR. 5553-2219: On the phone with Joseph (pt's ex-) who is concerned because she was not updated on when pt went to surgery and is not getting updates like before via text. Joseph is also stating that she signed papers at [facility] recently transfering Health Care POA into her name. Last AD is from 2013 with Michelle (daughter) as POA. 1042: Page to case management [place] 245 in OR Mr. Sierra [phone]: Ania (pt's ex-) states that she submitted papers recently while at [facility] that she is healthcare POA. Last AD I see is 2013 that has Michelle Richmond (pt's daughter) as POA. -Josse AHUJA [phone]: pT disoriented to self and time emerging from anesthesia. 1620: Pt calling concaver light stating he is bleeding. Upon assessment, blood seeping gown and chucks pad under pt. Pressure applied to L groin sight. Page to Dr. Jeter (surgical scrub technologist). 1621: Dr. Jeter at bedside, assuming full [...] note was completed by: Fran Quintana RN [facility] NURSING PROG HNO ID: [id number] Author: Chrystal (Rn) ОЛЕГ Jacob Service: Critical Care Author Type: Registered Nurse Type: Nursing Progress Note Filed: 10/10/2019 6:32 AM Note Text: Nursing Progress Note Patient Name: Pedro Pablo Sierra Patient Location: [id number]/[facility]-0 __ Daily Note: 190: Bedside handoff received from ОЛЕГ Patel. Patient resting in bed, Heparin gtt verified. Pulses dual checked 2000: Full assessment completed. See doc flowsheets. 0000: Reassessment completed. Pulses still present via dopplar. 0400: Reassessment completed. See doc flowsheets. 0545: Patient pulled out IV. Reduced access. Dr. Moody aware. IV fluids stopped. This note was completed by: Chrystal Jacob RN [facility] OPERATIVE NOon 10-10-2019 OPERATIVE NO HNO ID: [id number] Author: Ryan May MD Service: Vascular Surgery Author Type: Physician Type: Operative Report Filed: 10/10/2019 1:51 PM Note Text: OPERATIVE/PROCEDURE REPORT LOG ID: [id number] Surgery/Procedure Date: 10/10/2019 Incision/Procedure Start Time:9:52 AM Incision Close/Procedure End Time: 13:49 Surgeon(s)/Procedurali st(s) and Delivery Driver Assistant(s): Surgeon(s) and Role: * Ryan May MD - Primary * Elly (Res) Stephanie - Resident - Assisting No Additional Staff Anesthesia: General Procedure(s): Left EIA to ELECTRIC ORGAN ASSEMBLER AND CHECKER bypass with 7mm ringed PTFE end to [...] to side to the patch. The proximal ELECTRIC ORGAN ASSEMBLER AND CHECKER was clamped with four orange clips. Flow [...] DATE: 10/10/2019 TIME: 1:40 PM PAGER/CONTACT #: [facility] PROGRESSon 10-10-2019 PROGRESS HNO ID: [id number] Author: Elly (Binu Brown Service: Vascular Surgery Author Type: Resident [...] (iso-osmotic) 100 mL (ANCEF) 2 g INTRAVENOUS Case Checker to OR - NaCl 0.9% iv infusion [...] 1604 -- 10/08/19 1645 pneumatic compression stockings (ok,oh) VTE Prophylaxis: on hep gtt ALLERGIES No [...] hematoma evacuation, possible thrombectomy, possible fem/fem. 2U concaver to OR Ok to cont. AC Ancef concaver to OR HOSPITALIZATION(S) Indication for admission/procedure: BLE pain Important/Relevant PMH/PSH: s/p left femoral endarterectomy with patch, US guided access RCFA, L profundaplasty, RUFUS recanalization AND stenting, CRISPIN stenting on 10/23, UC, CAD previous UT, DM, HTN, HLD, COPD Overall Course: 63 year old male with acute onset of BLE pain. Taken to OR for initiation of thrombolysis thru LCIA/TORITO Procedure/Surgeries: 1. Aortogram with bilateral ileofemoral runoff via left brachial artery 2. Left leg angiogram, 3rd order 3. Placement of lysis catheter from distal aorta to left SFA, 20cm treatment zone [facility] 07/02/2014 Thrombectomy Airway Difficulty: NA OR Course: [...] Elly Brown MD PATIENT NAME: Pedro Pablo Sirera DATE: October 10, 2019 TIME: 7:50 AM PAGER/CONTACT #: [phone] [facility] PROGRESS HNO ID: [id number] Author: Rashawn Huntley Service: Critical Care Author [...] GLYCOLAX) 17 g ORAL DAILY PRN Roman Girard - docusate sodium 100 mg cap(s) (COLACE) [...] Misael Jeter MD 11 mL/hr at 10/10/19 0012 1,100 Units/hr at 10/10/19 001 And - heparin RATE CHANGE bolus 1,000-4,000 Units for subtherapeutic aptt results 1,000-4,000 Units INTRAVENOUS PRN Misael Jeter MD 2,400 Units at 10/10/19 0012 - ceFAZolin iv piggyback 2 g in D5W (iso-osmotic) 100 mL (ANCEF) 2 g INTRAVENOUS Case Checker to OR Juliana Oden (Pa) - NaCl 0.9% iv infusion 100 mL/hr INTRAVENOUS CONTINUOUS Misael Jeter MD Stopped at 10/10/19 0500 - fentaNYL 50 mcg/mL 25 mcg injection (SUBLIMAZE) 25 mcg INTRAVENOUS q 4 H PRN Misael Jeetr MD - oxyCODONE IR 5-10 mg tab(s) (ROXICODONE) 5-10 mg ORAL q 4 H PRN Misael Jeter MD 5 mg at 10/09/192126 - NaCl 0.9% 3-5 mL 3-5 mL INTRAVENOUS q 12 H Rashawn Huntley 5 mL at 10/09/19 2100 - ondansetron 4 mg tab(s) (ZOFRAN) 4 mg ORAL q 6 H PRN Rashawn Medrick Or - ondansetron (PF) 4 mg injection (ZOFRAN) 4 mg INTRAVENOUS q 6 H PRN Rashawn Medrick 4 mg at 10/09/19 0830 - bisacodyl [...] and HS Rashawn Medrick 0.25 mg at 10/10/19 0536 - sertraline 100 mg tab(s) (ZOLOFT) 100 mg ORAL DAILY Rashawn Medrick 100 mg at 10/09/19 0755 - mirtazapine 15 mg (REMERON) 15 mg ORAL AT BEDTIME Rashawn Petersonrick 15 mg at 10/09/192123 - gabapentin 300 mg cap(s) (NEURONTIN) 300 mg ORAL q 12 H Rashawn Medrick 300 mg at 10/09/192123 - pantoprazole DR 40 mg tab(s) (PROTONIX) 40 mg ORAL DAILY (6 AM) Rsahawn Petersonrick 40 mg at 10/10/1936 - dextrose 40 % 15 g 15 [...] hospitalization are listed below. Plese refer to [facility] for a full listing of cultures obtained during this hospitalization. ? N/A DIAGNOSTIC TESTS: The following diagnostic tests/findings were reviewed: ? Most recent labs and imaging results. MOST RECENT CXR FINDINGS: Increased vascular markings, likely fluid overload. OPERATIVE PROCEDURE(S): Date of surgery: 10/08/19 Procedure: Left common [employer] endarterectomy with bovine path Left profundoplasty Left iliac stenting X4 (I-Cast X2, Jessica X2) Multiple angiograms with angioplasty Surgeon: Dr. 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 May on 10/08/19. She is admitted to SICU post-operatively for neurovascular checks and close hemodynamic monitoring. Developed L [employer] occlusion POD2 and going back to OR [...] -- 10/08/19 1700 activity - mobilize patient ([place], [place]) 10/08/19 1645 pneumatic compression stockings ([place]) VTE Prophylaxis: VTE prophylaxis appropriate To be seen and discussed on rounds with SICU staff: Dr. Huntley ICU Checklist --------- --- VTE Prophylaxis: SIGNATURE: Misael Jeter MD PATIENT NAME: Pedro Pablo Sierra DATE: October 10, 2019 TIME: 6:40 AM PAGER/CONTACT #: [phone] [facility] STAFF PHYSICIAN NOTE OF PERSONAL INVOLVEMENT [...] HTN GERD ? Procedure/Surgeon 10/08/19 S/P L [employer] endarterectomy with bovine path, profundoplasty and iliac [...] DO 7:56 AM October 10, 2019 Normal [facility] PTT,Anticoag Therapyon 10-09 aPTT Coag (Bld) [Time] 109.7 s High 23.0-32.4 [facility] Comment on above: Result Comment: Unfr [...] laboratory APTT reagent in use throughout the [facility]. Called to and read back by: Landry Quintana RN [facility] 10/10/19 Noemí HOLLIS Performed By: #### P TTAC ####[facility] [place] [address] [phone] Phosphoruson 10-10-2019 Phosphate [Mass/Vol] 3.0 mg/dL Normal 2.5-4.5 [facility] Comment on above: Performed By: #### C BCDIF, BMP, MG1, PHOS, PTT, PT ####[place] [id number] [place], [place] [phone] Phosphate [Mass/Vol] 2.1 mg/dL Low 2.5-4.5 [facility] Comment on above: Performed By: #### C BC, BMP, MG1, PHOS ####[address] [phone] Protimeon 10-10-2019 PT Coag (PPP) [Time] 10.5 s Normal 9.7-13.0 [facility] Comment on above: Performed By: #### C BCDIF, PTT, FIBCT, PT ####[address] [phone] PT Coag (PPP) [Time] 1.0 s Normal 0.9-1.3 [facility] Comment on above: Result Comment: Teri min K Antagonist (VKA) Therapeutic Range: INR 2 to 3 (Target INR of 2.5) Note: For patients treated with VKA drugs, such as warfarin, the [employer] 2012 Guideline recommends [...] Chest 2012, 141:7S-47S Gio RA, et al. [facility] 2017, 70: 252-289 Performed By: #### C BCDIF, PTT, FIBCT, PT ####[address] [phone] Performed By: #### C BCDIF, BMP, MG1, PHOS, PTT, PT ####[address] [phone] PT Coag (PPP) [Time] 10.9 s Normal 9.7-13.0 [facility] Comment on above: Performed By: #### C BCDIF, BMP, MG1, PHOS, PTT, PT ####[address] [phone] SURGICAL PATHOLOGYon 020 SURGICAL PATHOLOGY Specimen originated from [facility] Specimen #: [id number] Submitting Physician: RYAN MAY FINAL DIAGNOSIS Left [...] x 1.0 cm. No vessel is seen. Research Nurse Practitioner sections are submitted in formalin in one cassette. SHOBHA/sierra 10/14/2019 [place] [address] Date of Report: 10/15/2019 Date of Procedure: 10/10/2019 Date of Receipt: 10/11/2019 Submitted by: RYAN MAY Location: [facility] Diagnostic interpretation performed at [facility], [address] [place] [address]. [place] Number: [id number] [facility] THERAPY NTon 10-10-2019 THERAPY NT HNO ID: [id number] Author: Shakir Alicea (Neisha Coello Service: Physical Therapy Author Type: Physical Therapist Type: Therapy (PT/OT/Speech/Resp) Filed: 10/10/2019 1:18 PM Note Text: .PHYSICAL THERAPY MISSED VISIT SERVICE DATE: 10/10/2019 SERVICE TIME: 1317 to 1317 ROOM: OR [facility] ( OPERATING ROOM) Attempted Treatment. Patient not seen due to Surgery. SIGNATURE: Shakir Coello PT PATIENT NAME: Pedro Pablo Sierra DATE: October 10, 2019 TIME: 1:18 PM Normal [facility] THERAPY NT HNO ID: [id number] Author: Caitlin Thomas Service: Occupational Therapy Author Type: Occupational Therapist Type: Therapy (PT/OT/Speech/Resp) Filed: 10/10/2019 7:37 AM Note Text: OCCUPATIONAL THERAPY MISSED VISIT SERVICE DATE: 10/10/2019 SERVICE TIME: 735 to 735 ROOM: [id number] Attempted Treatment. Patient not seen due to Surgery. Pt going back to OR. OT tx on hold today. Will continue to monitor. SIGNATURE: Caitlin Thomas OTR/L PATIENT NAME: Pedro Pablo Sierra DATE: October 10, 2019 TIME: 7:36 AM [facility] XR CHEST 1V FRONTAL PORTon 0 [...] airspace opacities, which may relate to atelectasis. Core Laying Machine Operator: SHANELL Transcribe Date/Time: Oct 10 2019 6:59A Dictated by : DULCE BARRON MD This examination was interpreted and the report reviewed and electronically signed by: DULCE BARRON MD on Oct 10 2019 7:00AM EST [id number] [facility] ALLIED HEALTHon 10-09-2019 ALLIED HEALTH HNO ID: [id number] Author: Markell Alonzo (Chaplain) Service: Spiritual Care Author Type: Range Conservationist Type: Allied Health Filed: 10/09/2019 5:11 PM Note Text: SPIRITUAL CARE PROGRESS NOTE SERVICE DATE: 10/09/2019 SERVICE TIME: 1701 While engaging in spiritual care phone rounds on the SICU unit, I contacted patient's?daughter Michelle through leaving a voicemail on his phone. ?I provided spiritual presence and bucolical support through?empathetic care and?through?offer of?prayers.?I shared with patient's?daughter?kiley t if further support was needed that contact could be with patient's RN who could page the on-call special machine operator. ? To contact the Spiritual Care Department: Please call [phone]?or Page the On-Call Range Conservationist at pager [phone].??? Thank you for the opportunity to be of service. SIGNATURE: Chaplain Terry PATIENT NAME: Pedro Pablo Sierra DATE: October 09, 2019 TIME: 5:09 PM PAGER/CONTACT #: [phone] [facility] APTTon 10-09-2019 aPTT Coag (Bld) [Time] 20.8 s Low 23.0-32.4 [facility] Comment on above: Result Comment: Unfr actionated [...] laboratory APTT reagent in use throughout the [facility]. Performed By: #### C BC, BMP, MG1, PHOS, PTT, PT ####[facility] [place], [place] [phone] Basic Metabolic Panlon 10-08 Anion gap [Moles/Vol] 9 mmol/L Normal 9-18 [facility] Comment on above: Performed By: #### C BC, BMP, MG1, PHOS, PTT, PT ####[place] [phone] Calcium [Mass/Vol] 8.1 mg/dL Low 8.5-10.5 [facility] Comment on above: Performed By: #### C BC, BMP, MG1, PHOS, PTT, PT ####[place] [phone] Chloride [Moles/Vol] 101 mmol/L Normal 98-110 [facility] Comment on above: Performed By: #### C BC, BMP, MG1, PHOS, PTT, PT ####[place] [phone] CO2 [Moles/Vol] 26 mmol/L Normal 23-32 [facility] Comment on above: Performed By: #### C BC, BMP, MG1, PHOS, PTT, PT ####[place] [phone] Creatinine [Mass/Vol] 0.81 mg/dL Normal 0.70-1.40 [facility] Comment on above: Performed By: #### C BC, BMP, MG1, PHOS, PTT, PT ####[place] [phone] eGFR- Amer. >60 Normal >60 [facility] Comment on above: Performed By: #### C BC, BMP, MG1, PHOS, PTT, PT ####[place] [phone] GFR/1.73 sq M predicted among non-blacks MDRD (S/P/Bld) [Vol rate/Area] mL/min/{1.73_m2} Normal >60 [facility] Comment on above: Performed By: #### C BC, BMP, MG1, PHOS, PTT, PT ####[place] [id number] [place] [phone] Glucose [Mass/Vol] 129 mg/dL High 65-100 [facility] Comment on above: Performed By: #### C BC, BMP, MG1, PHOS, PTT, PT ####[place] [phone] Potassium [Moles/Vol] 4.5 mmol/L Normal 3.5-5.0 [facility] Comment on above: Performed By: #### C BC, BMP, MG1, PHOS, PTT, PT ####[place] [phone] Sodium [Moles/Vol] 136 mmol/L Normal 135-146 [facility] Comment on above: Performed By: #### C BC, BMP, MG1, PHOS, PTT, PT ####[place] [phone] Urea nitrogen [Mass/Vol] 15 mg/dL Normal 10-25 [facility] Comment on above: Performed By: #### C BC, BMP, MG1, PHOS, PTT, PT ####[place] [phone] CASE MANAGEMon 10-09-2019 CASE MANAGEM HNO ID: [id number] Author: Carly Hutchison) ОЛЕГ Man Service: Case [...] once a week. Pt nurse is from [facility] ). Carmen would like AVS faxed at d/c to [phone] SIGNATURE: Carly Man RN,BSN PATIENT NAME: Pedro Pablo Sierra DATE: October 09, 2019 TIME: 1:44 PM PAGER/CONTACT #: [phone] [facility] CASE MGT INIT [place] 2019 CASE MGT INIT JOSE HNO ID: [id number] Author: Carly NessRn) ОЛЕГ Man Service: Case Management Author Type: Registered Nurse Type: Care Mgt Initial Assessment Filed: 10/09/2019 12:41 PM Note Text: CARE MANAGEMENT: ASSESSMENT AND DISCHARGE PLAN SERVICE DATE: October 09, 2019 SERVICE TIME: 1240 PRIMARY CARE PHYSICIAN: DAIJA MORTON MD ADMISSION STATUS: Inpatient Needs Prior to Discharge: To Be Determined MEDICAL: [facility] MEDICARE 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 Last discharge within 30 days: No Advance Directive: Current Advance Directive: Health Care Power of Orchestra Teacher;Living Will In Chart: Yes Up To Date [...] Completely I feel financially burdened by my afv-hu-bqoqcy expenses for my prescription medication:: 0 - Disagree Completely Risk Score: 0 Patient is categorized as: Low risk < 2 Are you interested in bedside delivery of your medications? No Is Patient Psychosocially Complex?: No ASSESSMENT AND PLAN: Medical Needs: Medical Needs: Two or more chronic diseases;Fall risk or frequent falls Psychosocial Needs: Psychosocial Needs: None FREEDOM OF CHOICE EXPLAINED: [place] of Choice Given: No Reason Not Given: No placements necessary POTENTIAL TRANSITION PLANS To Be Determined 69 yo male admitted for vascular procedure, vascular surgery following. 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 Pt states B/B [...] 09, 2019 TIME: 12:26 PM PAGER/CONTACT #: [phone] Normal [facility] CBCon 10-09-2019 Erythrocyte distribution width (RBC) [Ratio] 15.7 % High 11.5-15.0 [facility] Comment on above: Performed By: #### C BC, BMP, MG1, PHOS, PTT, PT ####[place] [phone] Hematocrit (Bld) [Volume fraction] 28.4 % Low 39.0-51.0 [facility] Comment on above: Performed By: #### C BC, BMP, MG1, PHOS, PTT, PT ####[place] [phone] MCH (RBC) [Entitic mass] 30.2 pG Normal 26.0-34.0 [facility] Comment on above: Performed By: #### C BC, BMP, MG1, PHOS, PTT, PT ####[place] [phone] MCHC (RBC) [Mass/Vol] 32.7 g/dL Normal 30.5-36.0 [facility] Comment on above: Performed By: #### C BC, BMP, MG1, PHOS, PTT, PT ####[place] [phone] MCV (RBC) [Entitic vol] 92.2 fL Normal 80.0-100.0 [facility] Comment on above: Performed By: #### C BC, BMP, MG1, PHOS, PTT, PT ####[place] [phone] Platelet mean volume (Bld) [Entitic vol] 9.9 fL Normal 9.0-12.7 [facility] Comment on above: Performed By: #### C BC, BMP, MG1, PHOS, PTT, PT ####[place] [phone] Platelets (Bld) [#/Vol] 220 10*3/uL Normal 150-400 [facility] Comment on above: Performed By: #### C BC, BMP, MG1, PHOS, PTT, PT ####[place] [phone] RBC (Bld) [#/Vol] 3.08 10*6/uL Low 4.20-6.00 [facility] Comment on above: Performed By: #### C BC, BMP, MG1, PHOS, PTT, PT ####[place] [phone] WBC (Bld) [#/Vol] 7.77 10*3/uL Normal 3.70-11.00 [facility] Comment on above: Performed By: #### C BC, BMP, MG1, PHOS, PTT, PT ####[place] [phone] CBC and Differentialon 10-08 Abs Baso <0.03 Normal <0.11 [facility] Comment on above: Performed By: #### C BCDIF ####[place] [phone] Abs Wayne 0.50 k/uL Normal <0.87 [facility] Comment on above: Performed By: #### C BCDIF ####[place] [phone] Abs Neut 5.57 k/uL Normal 1.45-7.50 [facility] Comment on above: Performed By: #### C BCDIF ####[place] [phone] Basophils/100 WBC (Bld) 0.3 % Normal [facility] Comment on above: Performed By: #### C BCDIF ####[place] [phone] DTYPE Auto Diff Normal [facility] Comment on above: Performed By: #### C BCDIF ####[place] [phone] Eosinophils (Bld) [#/Vol] 10*3/uL Normal <0.46 [facility] Comment on above: Performed By: #### C BCDIF ####[place] [phone] Eosinophils/100 WBC (Bld) 0.1 % Normal [facility] Comment on above: Performed By: #### C BCDIF ####[place] [phone] Erythrocyte distribution width (RBC) [Ratio] 16.0 % High 11.5-15.0 [facility] Comment on above: Performed By: #### C BCDIF ####[place] [address] Hematocrit (Bld) [Volume fraction] 28.9 % Low 39.0-51.0 [facility] Comment on above: Performed By: #### C BCDIF ####[place] [phone] Hemoglobin (Bld) [Mass/Vol] 9.3 g/dL Low 13.0-17.0 [facility] Comment on above: Performed By: #### C BCDIF ####[address] Performed By: #### C BC, BMP, MG1, PHOS, PTT, PT ####[place] [phone] Lymphocytes (Bld) [#/Vol] 1.19 10*3/uL Normal 1.00-4.00 [facility] Comment on above: Performed By: #### C BCDIF ####[place] [phone] Lymphocytes/100 WBC (Bld) 16.3 % Normal [facility] Comment on above: Performed By: #### C BCDIF ####[place] [phone] MCH (RBC) [Entitic mass] 30.0 pG Normal 26.0-34.0 [facility] Comment on above: Performed By: #### C BCDIF ####[place] [phone] MCHC (RBC) [Mass/Vol] 32.2 g/dL Normal 30.5-36.0 [facility] Comment on above: Performed By: #### C BCDIF ####[place] [phone] MCV (RBC) [Entitic vol] 93.2 fL Normal 80.0-100.0 [facility] Comment on above: Performed By: #### C BCDIF ####[place] [phone] Monocytes/100 WBC (Bld) 6.9 % Normal [facility] Comment on above: Performed By: #### C BCDIF ####[place] [phone] Neutrophils/100 WBC (Bld) 76.4 % Normal [facility] Comment on above: Performed By: #### C BCDIF ####[place] [phone] Platelet mean volume (Bld) [Entitic vol] 9.8 fL Normal 9.0-12.7 [facility] Comment on above: Performed By: #### C BCDIF ####[place] [phone] Platelets (Bld) [#/Vol] 200 10*3/uL Normal 150-400 [facility] Comment on above: Performed By: #### C BCDIF ####[place] [phone] RBC (Bld) [#/Vol] 3.10 10*6/uL Low 4.20-6.00 [facility] Comment on above: Performed By: #### C BCDIF ####[place] [place], [place] [phone] WBC (Bld) [#/Vol] 7.29 10*3/uL Normal 3.70-11.00 [facility] Comment on above: Performed By: #### C BCDIF ####[place] [place], [place] [phone] MEDICAL EMERon 10-09-2019 MEDICAL LEYLA HNO ID: [id number] Author: Misael Jeter MD Service: Critical Care Author Type: Resident Type: Chg in Clinical Condition Filed: 10/09/2019 5:15 PM Note Text: Patient was evaluated by Dr. Mccalin and vascular surgery team this afternoon at [...] Jeter MD General Surgery Resident PGY2 Pager: [phone] 10/09/2019 5:11 PM Normal [facility] Magnesiumon 10-09-2019 Magnesium [Mass/Vol] 2.1 mg/dL Normal 1.7-2.6 [facility] Comment on above: Result Comment: Revi ewed Performed By: #### C BC, BMP, MG1, PHOS, PTT, PT ####[place] [address] [place], [place] [phone] NURSING PROGon 10-09-2019 NURSING PROG HNO ID: [id number] Author: Amanda Hutchison) ОЛЕГ Delgadillo Service: Nursing Author Type: Registered Nurse Type: Nursing Progress Note Filed: 10/09/2019 6:36 PM Note Text: Nursing Progress Note Patient Name: Pedro Pablo Sierra Patient Location: [id number]/[facility] __ Daily Note: 1744: Bedside handoff received from ОЛЕГ Shields. 1800: Dr. Fish at bedside. Patient c/o numbness in left leg. Bilateral DP and PT pulses doppled. Dr. Fish obtaining consent for surgery tomorrow. 1899: Bedside handoff given to ОЛЕГ Jarrell. This note was completed by: Amanda Delgadillo RN [facility] NURSING PROG HNO ID: [id number] Author: Cornelius Hutchison) ОЛЕГ Gonzalez Service: Nursing Author Type: Registered Nurse Type: Nursing Progress Note Filed: 10/09/2019 5:39 PM Note Text: Nursing Progress Note Patient Name: Pedro Pablo Sierra Patient Location: [id number]/[facility] __ Daily Note: 0700 Bedside report received from previous shift RN. 0800 Assessment completed and charted. Neuro intact. VSS. Pulses present via doppler. See flowsheets. 1200 Assessment completed and charted. 1600 Reassessment completed and charted. 1730 Heparin gtt started. See 1744 Bedside report given to Tigist AHUJA. 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), DM, GERD, diverticulosis, anxiety, depression, lupus anticoagulant disorder on Coumadin, chronic low back pain, 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 Formal arterial duplex of LLE shows occluded [employer]ER [employer] CHECKER. Plan for exploration and revascularization with Dr. 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 ETX#[id number] For questions Monday through Monday 6am to 6pm please page Red Team [phone] For questions during nights (6pm - 6am) and weekends, please contact the General Surgery Case Checker pager, [phone] [facility] PROGRESS HNO ID: [id number] Author: Rashawn Huntley Service: Critical Care Author [...] CURRENT MEDICATIONS: Medications reviewed. Please refer to [employer] for list of inpatient medications. Current Facility-Administered Medications Medication Dose Route Frequency Provider Last Rate Last Dose - meperidine (PF) 12.5 mg injection (DEMEROL) 12.5 mg INTRAVENOUS q 10 MIN PRN Anabel Marta - HYDROmorphone 0.2 mg injection (DILAUDID) 0.2 mg INTRAVENOUS q 5 MIN PRN Anabel Marta - prochlorperazine 10 mg injection (COMPAZINE) 10 mg INTRAVENOUS q 6 H PRN Anabel Marta - heparin 5,000 Units injection 5,000 Units [...] 6 H Rashawn Huntley 1,000 mg at 10/09/19 06 - ipratropium-albuterol 3 mL nebulizer solution (DUONEB) 3 mL INHALATION q 4 H PRN Rashawn Huntley - hyoscyamine sublingual 0.25 mg tab(s) (LEVSIN SL) 0.25 mg SUBLINGUAL AC and HS Rashawn Medpalma 0.25 mg at 10/09/19624 - sertraline 100 mg tab(s) (ZOLOFT) 100 mg ORAL DAILY Rashawn Huntley 100 mg at 10/08/191808 - mirtazapine 15 mg (REMERON) 15 mg ORAL AT BEDTIME Rashawn Huntley 15 mg at 10/08/192102 - carBAMazepine 200 mg tab(s) (TEGretol) 200 mg ORAL BID Rsahawn Huntley 200 mg at 10/08/192102 - gabapentin 300 mg cap(s) (NEURONTIN) 300 mg ORAL q 12 H Rashawn Huntley 300 mg at 10/08/191807 - pantoprazole DR [...] 12 H Rashawn Medrick 12.5 mg at 10/08/19 180 - ceFAZolin iv piggyback 2 g in D5W (iso-osmotic) 100 mL (ANCEF) 2 g INTRAVENOUS q 12 HR Misael (Res) MD Steffany PERTINENT CULTURES: Cultures were reviewed. Pertinent cultures from this hospitalization are listed below. Plese refer to [facility] for a full listing of cultures obtained during this hospitalization. ? N/A DIAGNOSTIC TESTS: The following diagnostic tests/findings were reviewed: ? Most recent labs and imaging results. MOST RECENT CXR FINDINGS: n/a OPERATIVE PROCEDURE(S): Date of surgery: 10/08/19 Procedure: Left common [employer] endarterectomy with bovine path Left profundoplasty Left iliac stenting X4 (I-Cast X2, Jessica X2) Multiple angiograms with angioplasty Surgeon: Dr. 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 Huntley ICU Checklist --------- --- VTE Prophylaxis: SIGNATURE: Misael Jeter MD PATIENT NAME: Pedro Pablo Sierra DATE: October 09, 2019 TIME: 6:40 AM PAGER/CONTACT #: [phone] [facility] STAFF PHYSICIAN NOTE OF PERSONAL INVOLVEMENT [...] COPD Current smoker Essential HTN GERD Procedure/Surgeon 4/21/20 S/P L [employer] endarterectomy with bovine path, profundoplasty and iliac [...] DO 8:20 AM October 09, 2019 Normal [facility] PTT,Anticoag Therapyon 10-08 aPTT Coag (Bld) [Time] 23.9 s Normal 23.0-32.4 [facility] Comment on above: Result Comment: Unfr actionated [...] laboratory APTT reagent in use throughout the [facility]. Performed By: #### P T, PTTAC ####[address] [phone] Phosphoruson 10-09-2019 Phosphate [Mass/Vol] 3.6 mg/dL Normal 2.5-4.5 [facility] Comment on above: Performed By: #### C BC, BMP, MG1, PHOS, PTT, PT ####[address] [phone] Protimeon 10-09-2019 PT Coag (PPP) [Time] 10.2 s Normal 9.7-13.0 [facility] Comment on above: Performed By: #### P T, PTTAC ####[address] [phone] PT Coag (PPP) [Time] 1.0 s Normal 0.9-1.3 [facility] Comment on above: Result Comment: Teri min K Antagonist (VKA) Therapeutic Range: INR 2 to 3 (Target INR of 2.5) Note: For patients treated with VKA drugs, such as warfarin, the [employer] 2012 Guideline recommends [...] Chest 2012, 141:7S-47S Gio KENNY, et al. [facility] 2017, 70: 252-289 Performed By: #### P T, PTTAC ####[place] [phone] Performed By: #### C BC, BMP, MG1, PHOS, PTT, PT ####[phone] PT Coag (PPP) [Time] 10.5 s Normal 9.7-13.0 [facility] Comment on above: Performed By: #### C BC, BMP, MG1, PHOS, PTT, PT ####[place] [phone] Staph aureus PCRon 0 MRSA PCR Negative Normal [facility] Comment on above: Performed By: #### S APCR ####[place] [phone] [phone] S aureus Spec Source Nasal Normal [facility] Comment on above: Performed By: #### S APCR ####[place] [phone] [place], [place] [phone] Staph aureus PCR Negative Normal [facility] Comment on above: Performed By: #### S APCR ####[facility] [place], [place] [phone] [place], [place] [phone] THERAPY NTon 10-09-2019 THERAPY NT HNO ID: [id number] Author: Shakir Alicea (Pt) Mode Service: Physical Therapy Author Type: Physical Therapist Type: Therapy (PT/OT/Speech/Resp) Filed: 10/09/2019 2:58 PM Note Text: Physical Therapy Evaluation SERVICE DATE: 10/09/2019 SERVICE TIME: 1055 to 1120 ROOM: [place] [address] Recommended Discharge Disposition: Home PT Anticipated Discharge [...] ness on feet Interventions Provided: Evaluation;Gait Training (71355) $ Evaluation-Moderate (95533) Billed Units: 1 unit Gait Training (94063) Treatment Minutes: 10 1 unit Skilled Intervention(s): [...] Consult : PVD s/p L LE redo [employer] endarterectomy, L profundoplasty, iliac stenting on 10/08/19 Relevant Past Medical History: CAD, UT, HTN, HLD, COPD, PJ, DM, anxiety, depression, blind R eye Patient Report: Pt agreeable to participate in therapy session Home Environment Patient Lives With: Self/Alone Assistance Available: time motion analyst Entry To Home: Stairs;Other: See Comment(stair lift) [...] October 09, 2019 TIME: 2:46 PM Normal [facility] THERAPY NT HNO ID: [id number] Author: Caitlin Thomas Service: Occupational Therapy Author Type: Occupational Therapist Type: Therapy (PT/OT/Speech/Resp) Filed: 10/09/2019 12:48 PM Note Text: Occupational Therapy Evaluation SERVICE DATE: 10/09/2019 SERVICE TIME: 1010 to 1050 ROOM: [place] [address] Recommended Discharge Disposition: Home OT Justification For [...] and Awareness;Unsteadiness on feet Interventions Provided: Evaluation;Self Intermediate Management (55516) $ Evaluation-Moderate (27380) Billed Units: 1 unit Self Intermediate Management (50922) Treatment Minutes: 25 2 units Skilled Intervention(s): [...] Reason for Occupational Therapy Consult: redo L [employer] endarterectomy, L profundoplasty, L iliac stenting 10/07 Relevant Past Medical History: CAD, UT, HTN, HLD, COPD, PJ, DM, anxiety, depression, blind R eye Patient Report: My daughter is a nurse. She's over a lot. Home Environment Patient Lives With: Self/Alone Assistance Available: time motion analyst(daughter comes over often) Entry To Home: Stairs(pt [...] DATE: October 09, 2019 TIME: 12:39 PM [facility] ANES POSTPROC EVALon 020 ANES POSTPROC EVAL HNO ID: [id number] Author: Job Roberts Service: ? Author Type: Anesthesiologist Type: Anesthesia Postprocedure Evaluation Filed: 10/08/2019 6:40 PM Note Text: POST ANESTHESIA EVALUATION NOTE : 1950 Procedure Summary Date: 10/08/19 Room / Location: [place] [address]A / OR Anesthesia Start: 800 Anesthesia Stop: 1625 Procedures: ENDARTERECTOMY FEMORAL (Left Leg) ENDOVASCULAR REVASCULARIZE OPEN ILIAC ARTERY UNILAT W/ TRANSLUMINAL STENT AND ANGIOPLASTY (Left ) Diagnosis: PVD (peripheral vascular disease) ([facility]) (PVD (peripheral vascular disease) ([facility]) [I73.9]) Surgeon: Ryan May MD Responsible Provider: [...] October 08, 2019 TIME: 6:39 PM CSN: [id number] [facility] ANES PRE-OPon 10-08-2019 ANES PRE-OP HNO ID: [id number] Author: Anabel Lozano Service: ? Author Type: [...] movements. - COMPOUNDED PRESCRIPTION Aerosol supplies Dx:J44.1 NPI#[id number] - ipratropium-albuterol (DUONEB) 0.5 mg-3 mg(2.5 mg [...] October 08, 2019 TIME: 8:42 AM CSN: [id number] Normal [facility] APTTon 10-08-2019 aPTT Coag (Bld) [Time] 53.2 s High 23.0-32.4 [facility] Comment on above: Result Comment: Unfr actionated [...] laboratory APTT reagent in use throughout the [facility]. Performed By: #### C BC, BMP, MG1, PHOS, PT, PTT ####[facility] [place], [place] [phone] Basic Metabolic Panlon 10-07 Anion gap [Moles/Vol] 13 mmol/L Normal 9-18 [facility] Comment on above: Performed By: #### C BC, BMP, MG1, PHOS, PT, PTT ####[place] [phone] Calcium [Mass/Vol] 8.4 mg/dL Low 8.5-10.5 [facility] Comment on above: Performed By: #### C BC, BMP, MG1, PHOS, PT, PTT ####[place] [phone] Chloride [Moles/Vol] 100 mmol/L Normal 98-110 [facility] Comment on above: Performed By: #### C BC, BMP, MG1, PHOS, PT, PTT ####[place] [phone] CO2 [Moles/Vol] 24 mmol/L Normal 23-32 [facility] Comment on above: Performed By: #### C BC, BMP, MG1, PHOS, PT, PTT ####[place] [phone] Creatinine [Mass/Vol] 0.71 mg/dL Normal 0.70-1.40 [facility] Comment on above: Performed By: #### C BC, BMP, MG1, PHOS, PT, PTT ####[place] [phone] eGFR- Amer. >60 Normal >60 [facility] Comment on above: Performed By: #### C BC, BMP, MG1, PHOS, PT, PTT ####[place] [phone] GFR/1.73 sq M predicted among non-blacks MDRD (S/P/Bld) [Vol rate/Area] mL/min/{1.73_m2} Normal >60 [facility] Comment on above: Performed By: #### C BC, BMP, MG1, PHOS, PT, PTT ####[place] [phone] Glucose [Mass/Vol] 160 mg/dL High 65-100 [facility] Comment on above: Performed By: #### C BC, BMP, MG1, PHOS, PT, PTT ####[place] [phone] Potassium [Moles/Vol] 4.1 mmol/L Normal 3.5-5.0 [facility] Comment on above: Performed By: #### C BC, BMP, MG1, PHOS, PT, PTT ####[place] [address] Sodium [Moles/Vol] 137 mmol/L Normal 135-146 [facility] Comment on above: Performed By: #### C BC, BMP, MG1, PHOS, PT, PTT ####[place] [address] Urea nitrogen [Mass/Vol] 12 mg/dL Normal 10-25 [facility] Comment on above: Performed By: #### C BC, BMP, MG1, PHOS, PT, PTT ####[place] [phone] CBCon 10-08-2019 Erythrocyte distribution width (RBC) [Ratio] 15.6 % High 11.5-15.0 [facility] Comment on above: Performed By: #### C BC, BMP, MG1, PHOS, PT, PTT ####[place] [phone] Hematocrit (Bld) [Volume fraction] 35.7 % Low 39.0-51.0 [facility] Comment on above: Performed By: #### C BC, BMP, MG1, PHOS, PT, PTT ####[place] [phone] Hemoglobin (Bld) [Mass/Vol] 11.7 g/dL Low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 pressure 162 mm[Hg] Dr. Daija Morton MD Work Phone: 4(087)202-125412 [place] [address] 12-26-2024 14:27-0400 Body temperature 97.9 [degF] Dr. Daija Morton MD Work Phone: 8(612)923-007912 [place] [address] 12-26-2024 14:27-0400 Inhaled oxygen flow rate 2 L/min Dr. Daija Morton MD Work Phone: 3(340)880-376612 [place] [address] 12-26-2024 14:27-0400 Respiratory rate 18 /min Dr. Daija Morton MD Work Phone: 8(396)984-641112 [place] [address] 12-26-2024 14:27-0400 SaO2% (BldA) [Mass fraction] 96 % Dr. Daija Morton MD Work Phone: 5(303)253-405112 [place] [address] 12-26-2024 04:00-0400 Body mass index (BMI) [Ratio] 24.5 kg/m2 Dr. Daija Morton MD Work Phone: 1(322)113-269512 [place] [address] 12-25-2024 11:12-0400 Body height 172.[address] Daija Morton MD Work Phone: 8(815)574-052212 [place] [address] 12-25-2024 11:12-0400 Body weight [address] Daija Morton MD Work Phone: 2(267)621-513012 [place] [address] 12-17-2024 18:14-0400 Body temperature 98.5 [degF] Dr. Daija Morton MD Work Phone: 4(988)262-442712 [place] [address] 12-17-2024 18:14-0400 Diastolic blood pressure 91 mm[Hg] Dr. Daija Morton MD Work Phone: 3(850)282-862912 [place] [address] 12-17-2024 18:14-0400 Heart rate 64 /min Dr. Daija Morton MD Work Phone: 8(772)256-454312 [place] [address] 12-17-2024 18:14-0400 Respiratory rate 16 /min Dr. Daija Morton MD Work Phone: 8(888)118-080112 [place] [address] 12-17-2024 18:14-0400 SaO2% (BldA) [Mass fraction] 99 % Dr. Daija Morton MD Work Phone: 8(510)641-996512 [place] [address] 12-17-2024 18:14-0400 Systolic blood pressure 197 mm[Hg] Dr. Daija Morton MD Work Phone: 3(929)034-960612 [place] [address] 12-17-2024 18:00-0400 Inhaled oxygen flow rate 2 L/min Dr. Daija Morton MD Work Phone: 1(953)428-394712 [place] [address] 12-17-2024 16:21-0400 Body height 172.[address] Daija Morton MD Work Phone: 9(277)516-719512 [place] [address] 12-17-2024 16:21-0400 Body mass index (BMI) [Ratio] 24.5 kg/m2 Dr. Daija Morton MD Work Phone: 5(077)673-325612 [place] [address] 12-17-2024 16:21-0400 Body weight [address] Daija Morton MD Work Phone: 0(914)267-098512 [place] [address] 12-16-2024 20:45-0400 Heart rate 76 /min Dr. Daija Morton MD Work Phone: 5(481)960-899412 [place] [address] 12-16-2024 20:45-0400 Respiratory rate 20 /min Dr. Daija Morton MD Work Phone: 6(785)246-620712 [place] [address] 12-16-2024 19:55-0400 Body temperature 98 [degF] Dr. Daija Morton MD Work Phone: 5(880)763-465412 [place] [address] 12-16-2024 19:55-0400 Diastolic blood pressure 72 mm[Hg] Dr. Daija Morton MD Work Phone: 1(858)992-253612 [place] [address] 12-16-2024 19:55-0400 Inhaled oxygen flow rate 2 L/min Dr. Daija Morton MD Work Phone: 2(981)715-528112 [place] [address] 12-16-2024 19:55-0400 SaO2% (BldA) [Mass fraction] 94 % Dr. Daija Morton MD Work Phone: 1(557)304-612512 [place] [address] 12-16-2024 19:55-0400 Systolic blood pressure 160 mm[Hg] Dr. Daija Morton MD Work Phone: 0(327)703-392512 [place] [address] 12-16-2024 03:13-0400 Body mass index (BMI) [Ratio] 23.4 kg/m2 Dr. Daija Morton MD Work Phone: 1(405)084-657512 [place] [address] 12-16-2024 03:13-0400 Body weight 70.[address] Daija Morton MD Work Phone: 4(269)445-994812 [place] [address] 12-14-2024 13:01-0400 Body height 172.[address] Daija Morton MD Work Phone: 6(565)125-249212 [place] [address] 12-13-2024 20:55-0400 Body temperature 98.3 [degF] Dr. Daija Morton MD Work Phone: 9(760)839-311612 [place] [address] 12-13-2024 20:55-0400 Diastolic blood pressure 73 mm[Hg] Dr. Daija Morton MD Work Phone: 8(046)614-486512 [place] [address] 12-13-2024 20:55-0400 Heart rate 65 /min Dr. Daija Morton MD Work Phone: 6(239)499-200012 [place] [address] 12-13-2024 20:55-0400 Respiratory rate 26 /min Dr. Daija Morton MD Work Phone: 9(061)853-408112 [place] [address] 12-13-2024 20:55-0400 SaO2% (BldA) [Mass fraction] 98 % Dr. Daija Morton MD Work Phone: [facility] 12-13-2024 20:55-0400 Systolic blood pressure 191 mm[Hg] Dr. Daija Morton MD Work Phone: 8(973)709-163524 [place] [address] 12-13-2024 18:10-0400 Inhaled oxygen flow rate 3.5 L/min Dr. Daija Morton MD Work Phone: 8(819)284-655724 [place] [address] 12-13-2024 17:46-0400 Body height 172.[address] Daija Morton MD Work Phone: 8(389)311-221524 [place] [address] 12-13-2024 17:46-0400 Body mass index (BMI) [Ratio] 24.3 kg/m2 Dr. Daija Morton MD Work Phone: 9(134)595-870024 [place] [address] 12-13-2024 17:46-0400 Body weight 72.[address] Daija Morton MD Work Phone: 1(955)199-022612 [place] [address] 12-12-2024 13:57-0400 Body mass index (BMI) [Ratio] 24.05 kg/m2 Anjel Older SAP ABAP PROGRAMMER.BOTTLER HELPER Work Phone: [facility] 12-12-2024 13:57-0400 Body weight 71.76 kg Anjel Older SAP ABAP PROGRAMMER.BOTTLER HELPER Work Phone: [facility] 12-12-2024 13:57-0400 Diastolic blood pressure 83 mm[Hg] Anjel Older SAP ABAP PROGRAMMER.BOTTLER HELPER Work Phone: [facility] 12-12-2024 13:57-0400 Heart rate 65 /min Anjel Older SAP ABAP PROGRAMMER.BOTTLER HELPER Work Phone: [facility] 12-12-2024 13:57-0400 Respiratory rate 20 /min Anjel Older SAP ABAP PROGRAMMER.BOTTLER HELPER Work Phone: [facility] 12-12-2024 13:57-0400 SaO2% (BldA) [Mass fraction] 94 % Anjel Older SAP ABAP PROGRAMMER.BOTTLER HELPER Work Phone: [facility] 12-12-2024 13:57-0400 Systolic blood pressure 185 mm[Hg] Anjel Older SAP ABAP PROGRAMMER.BOTTLER HELPER Work Phone: 0(959)143-171505 [place] [address] 09-02-2024 20:48-0400 Heart rate 62 /min Dr. Daija Morton MD Work Phone: 4(028)773-877412 [place] [address] 09-02-2024 19:34-0400 Body temperature 97.5 [degF] Dr. Daija Morton MD Work Phone: 5(083)201-230612 [place] [address] 09-02-2024 19:34-0400 Diastolic blood pressure 77 mm[Hg] Dr. Daija Morton MD Work Phone: 1(914)419-217412 [place] [address] 09-02-2024 19:34-0400 Respiratory rate 16 /min Dr. Daija Morton MD Work Phone: 5(640)727-350312 [place] [address] 09-02-2024 19:34-0400 SaO2% (BldA) [Mass fraction] 92 % Dr. Daija Morton MD Work Phone: 1(937)922-185312 [place] [address] 09-02-2024 19:34-0400 Systolic blood pressure 146 mm[Hg] Dr. Daija Morton MD Work Phone: 0(199)964-226512 [place] [address] 09-02-2024 10:22-0400 Body height 172.[address] Daija Morton MD Work Phone: 4(701)053-415412 [place] [address] 09-02-2024 10:22-0400 Body weight 68.[address] Daija Morton MD Work Phone: 7(132)874-261012 [place] [address] 09-02-2024 06:00-0400 Body mass index (BMI) [Ratio] 22.8 kg/m2 Dr. Daija Morton MD Work Phone: 6(987)984-549012 [place] [address] 09-01-2024 22:41-0400 Inhaled oxygen flow rate 2 L/min Dr. Daija Morton MD Work Phone: 6(837)501-425912 [place] [address] 08-25-2024 18:11-0400 Diastolic blood pressure 90 mm[Hg] Dr. Daija Morton MD Work Phone: 4(663)266-256612 [place] [address] 08-25-2024 18:11-0400 Heart rate 66 /min Dr. Daija Morton MD Work Phone: [facility] 08-25-2024 18:11-0400 Respiratory rate 24 /min Dr. Daija Morton MD Work Phone: 5(918)504-548024 [place] [address] 08-25-2024 18:11-0400 SaO2% (BldA) [Mass fraction] 93 % Dr. Daija Morton MD Work Phone: 4(251)338-017224 [place] [address] 08-25-2024 18:11-0400 Systolic blood pressure 197 mm[Hg] Dr. Daija Morton MD Work Phone: 4(146)811-739112 [place] [address] 08-25-2024 16:12-0400 Body height 165.[address] Daija Morton MD Work Phone: 2(028)280-550712 [place] [address] 08-25-2024 16:12-0400 Body temperature 97.7 [degF] Dr. Daija Morton MD Work Phone: 5(522)686-180012 [place] [address] 03-23-2024 13:19-0400 Diastolic blood pressure 98 mm[Hg] Pura Praisler-Wood SAP ABAP PROGRAMMER.BOTTLER HELPER Work Phone: [facility] 03-23-2024 13:19-0400 Systolic blood pressure 230 mm[Hg] Pura Praisler-Wood SAP ABAP PROGRAMMER.BOTTLER HELPER Work Phone: [facility] 03-23-2024 13:12-0400 Body mass index (BMI) [Ratio] 20.92 kg/m2 Pura Praisler-Wood SAP ABAP PROGRAMMER.BOTTLER HELPER Work Phone: [facility] 03-23-2024 13:12-0400 Body temperature 96.91 [degF] Pura Praisler-Wood SAP ABAP PROGRAMMER.BOTTLER HELPER Work Phone: [facility] 03-23-2024 13:12-0400 Body weight 62.4 kg Pura Praisler-Wood SAP ABAP PROGRAMMER.BOTTLER HELPER Work Phone: [facility] 03-23-2024 13:12-0400 Heart rate 74 /min Pura Praisler-Wood SAP ABAP PROGRAMMER.BOTTLER HELPER Work Phone: [facility] 03-23-2024 13:12-0400 Respiratory rate 16 /min Purakonstantin Carter APRN.CNP Work Phone: [facility] 11-21-2023 12:49-0400 Diastolic blood pressure 94 mm[Hg] Rebekah Bogner PA-C Work Phone: [facility] 11-21-2023 12:49-0400 Systolic blood pressure 200 mm[Hg] Rebekah Bogner PA-C Work Phone: [facility] 11-21-2023 12:42-0400 Body mass index (BMI) [Ratio] 22.96 kg/m2 Rebekah Bogner PA-C Work Phone: [facility] 11-21-2023 12:42-0400 Body weight 68.49 kg Rebekah Bogner PA-C Work Phone: [facility] 11-21-2023 12:42-0400 Heart rate 60 /min Rebekah Bogner PA-C Work Phone: [facility] 11-21-2023 12:42-0400 Respiratory rate 16 /min Rebekah Bogner PA-C Work Phone: [facility] 11-21-2023 12:42-0400 SaO2% (BldA) [Mass fraction] 92 % Rebekah Bogner PA-C Work Phone: [facility] 08-02-2023 19:35-0500 Inhaled oxygen flow rate 2 L/min Dr. Daija Morton Work Phone: [facility] 08-02-2023 19:27-0500 Body temperature 97.9 [degF] Dr. Daija Morton Work Phone: [facility] 08-02-2023 19:27-0500 Diastolic blood pressure 59 mm[Hg] Dr. Daija Morton Work Phone: [facility] 08-02-2023 19:27-0500 Heart rate 98 /min Dr. Daija Morton Work Phone: 7(168)665-606024 [place] [address] 08-02-2023 19:27-0500 Respiratory rate 16 /min Dr. Daija Morton Work Phone: 6(719)856-582712 [place] [address] 08-02-2023 19:27-0500 SaO2% (BldA) [Mass fraction] 93 % Dr. Daija Morton Work Phone: 0(481)269-724412 [place] [address] 08-02-2023 19:27-0500 Systolic blood pressure 149 mm[Hg] Dr. Daija Morton Work Phone: 4(541)527-309712 [place] [address] 07-31-2023 10:17-0500 Body height 172.[address] Daija Morton Work Phone: 8(097)395-390512 [place] [address] 07-31-2023 10:17-0500 Body weight 67.[address] Daija Morton Work Phone: 7(986)904-657312 [place] [address] 07-31-2023 00:57-0500 Body mass index (BMI) [Ratio] 22.4 kg/m2 Dr. Daija Morton Work Phone: 2(570)491-061112 [place] [address] 07-31-2023 00:05-0500 Body temperature 99 [degF] Dr. Daija Morton Work Phone: 8(106)346-388212 [place] [address] 07-31-2023 00:05-0500 Diastolic blood pressure 107 mm[Hg] Dr. Daija Morton Work Phone: 6(559)298-615112 [place] [address] 07-31-2023 00:05-0500 Heart rate 107 /min Dr. Daija Morton Work Phone: 0(985)775-351512 [place] [address] 07-31-2023 00:05-0500 Respiratory rate 30 /min Dr. Daija Morton Work Phone: 5(393)142-474612 [place] [address] 07-31-2023 00:05-0500 SaO2% (BldA) [Mass fraction] 98 % Dr. Daija Morton Work Phone: 2(430)472-875812 [place] [address] 07-31-2023 00:05-0500 Systolic blood pressure 173 mm[Hg] Dr. Daija Morton Work Phone: 4(313)317-833912 [place] [address] 07-30-2023 23:25-0500 Inhaled oxygen flow rate 3 L/min Dr. Daija Morton Work Phone: 0(471)368-254712 [place] [address] 07-30-2023 20:30-0500 Body height 172.[address] Daija Morton Work Phone: 8(650)626-476012 [place] [address] 07-30-2023 20:30-0500 Body mass index (BMI) [Ratio] 24.2 kg/m2 Dr. Daija Morton Work Phone: 0(432)797-498512 [place] [address] 07-30-2023 20:30-0500 Body weight 72.[address] Daija Morton Work Phone: 6(004)564-571412 [place] [address] 07-26-2023 12:10-0500 Diastolic blood pressure 59 mm[Hg] Dr. Daija Morton Work Phone: 7(886)534-043112 [place] [address] 07-26-2023 12:10-0500 Heart rate 67 /min Dr. Daija Morton Work Phone: 2(097)439-494912 [place] [address] 07-26-2023 12:10-0500 Respiratory rate 18 /min Dr. Daija Morton Work Phone: 7(328)403-173212 [place] [address] 07-26-2023 12:10-0500 SaO2% (BldA) [Mass fraction] 90 % Dr. Daija Morton Work Phone: 1(242)182-273312 [place] [address] 07-26-2023 12:10-0500 Systolic blood pressure 107 mm[Hg] Dr. Daija Morton Work Phone: 9(625)437-889012 [place] [address] 07-26-2023 08:38-0500 Body temperature 97.8 [degF] Dr. Daija Morton Work Phone: 2(143)209-524512 [place] [address] 07-26-2023 06:59-0500 Inhaled oxygen flow rate 2 L/min Dr. Daija Morton Work Phone: 4(818)408-913112 [place] [address] 07-25-2023 16:00-0500 Body weight 51.[address] Daija Morton Work Phone: 9(736)471-646712 [place] [address] 07-24-2023 21:55-0500 Body mass index (BMI) [Ratio] 17.4 kg/m2 Dr. Daija Morton Work Phone: 3(581)032-498212 [place] [address] 07-24-2023 21:13-0500 Diastolic blood pressure 89 mm[Hg] Dr. Daija Morton Work Phone: 0(541)993-130712 [place] [address] 07-24-2023 21:13-0500 Heart rate 65 /min Dr. Daija Morton Work Phone: 3(672)455-507112 [place] [address] 07-24-2023 21:13-0500 Respiratory rate 16 /min Dr. Daija Morton Work Phone: 0(836)082-321612 [place] [address] 07-24-2023 21:13-0500 SaO2% (BldA) [Mass fraction] 91 % Dr. Daija Morton Work Phone: 9(656)476-245712 [place] [address] 07-24-2023 21:13-0500 Systolic blood pressure 210 mm[Hg] Dr. Daija Morton Work Phone: 2(638)489-512012 [place] [address] 07-24-2023 17:27-0500 Body mass index (BMI) [Ratio] 22.8 kg/m2 Dr. Daija Morton Work Phone: 5(412)791-107212 [place] [address] 07-24-2023 17:27-0500 Body weight [address] Daija Morton Work Phone: 9(038)535-848212 [place] [address] 07-24-2023 16:44-0500 Body height 172.[address] Daija Morton Work Phone: 3(842)257-376012 [place] [address] 07-24-2023 16:44-0500 Body temperature 96.7 [degF] Dr. Daija Morton Work Phone: 4(114)024-832712 [place] [address] 04-04-2023 11:37-0400 Diastolic blood pressure 79 mm[Hg] Dr. Daija Morton Work Phone: 3(491)540-570012 [place] [address] 04-04-2023 11:37-0400 Heart rate 44 /min Dr. Daija Morton Work Phone: 3(950)821-074912 [place] [address] 04-04-2023 11:37-0400 Systolic blood pressure 188 mm[Hg] Dr. Daija Morton Work Phone: 6(436)277-624612 [place] [address] 04-04-2023 10:02-0400 Body temperature 97.6 [degF] Dr. Daija Morton Work Phone: 3(740)761-518712 [place] [address] 04-04-2023 10:02-0400 Respiratory rate 18 /min Dr. Daija Morton Work Phone: 6(315)784-803112 [place] [address] 04-04-2023 10:02-0400 SaO2% (BldA) [Mass fraction] 92 % Dr. Daija Morton Work Phone: 6(334)899-731112 [place] [address] 04-03-2023 15:53-0400 Inhaled oxygen flow rate 2 L/min Dr. Daija Morton Work Phone: 6(146)312-849112 [place] [address] 03-31-2023 14:20-0400 Body mass index (BMI) [Ratio] 20.5 kg/m2 Dr. Daija Morton Work Phone: 3(898)097-587312 [place] [address] 03-31-2023 14:20-0400 Body weight [address] Daija Morton Work Phone: 3(456)497-148812 [place] [address] 03-31-2023 09:57-0400 Body height 175.[address] Daija Morton Work Phone: 1(062)749-774112 [place] [address] 03-30-2023 20:26-0400 Body temperature 96.7 [degF] Dr. Daija Morton Work Phone: 9(290)791-001312 [place] [address] 03-30-2023 20:26-0400 Diastolic blood pressure 78 mm[Hg] Dr. Daija Morton Work Phone: 6(045)334-940912 [place] [address] 03-30-2023 20:26-0400 Heart rate 71 /min Dr. Daija Morton Work Phone: 3(494)390-170612 [place] [address] 03-30-2023 20:26-0400 Respiratory rate 18 /min Dr. Daija Morton Work Phone: 9(031)316-407412 [place] [address] 03-30-2023 20:26-0400 SaO2% (BldA) [Mass fraction] 97 % Dr. Daija Morton Work Phone: 2(218)168-278812 [place] [address] 03-30-2023 20:26-0400 Systolic blood pressure 181 mm[Hg] Dr. Daija Morton Work Phone: 4(668)923-647112 [place] [address] 03-30-2023 14:10-0400 Body height 172.[address] Daija Morton Work Phone: 3(032)512-437812 [place] [address] 03-29-2023 19:22-0400 Body mass index (BMI) [Ratio] 21.9 kg/m2 Dr. Daija Morton Work Phone: 9(839)736-858812 [place] [address] 03-29-2023 19:22-0400 Body weight 65.[address] Daija Morton Work Phone: 1(307)525-440012 [place] [address] 03-29-2023 19:20-0400 Diastolic blood pressure 80 mm[Hg] Dr. Daija Morton Work Phone: 6(940)628-930612 [place] [address] 03-29-2023 19:20-0400 Heart rate 84 /min Dr. Daija Morton Work Phone: 9(523)678-005312 [place] [address] 03-29-2023 19:20-0400 Respiratory rate 18 /min Dr. Daija Morton Work Phone: 3(522)114-973012 [place] [address] 03-29-2023 19:20-0400 SaO2% (BldA) [Mass fraction] 92 % Dr. Daija Morton Work Phone: 3(971)204-637012 [place] [address] 03-29-2023 19:20-0400 Systolic blood pressure 195 mm[Hg] Dr. Daija Morton Work Phone: 5(167)421-029312 [place] [address] 03-29-2023 18:17-0400 Body temperature 97.6 [degF] Dr. Daija Morton Work Phone: 5(057)428-671912 [place] [address] 02-25-2023 19:41-0400 Diastolic blood pressure 87 mm[Hg] Dr. Daija Morton Work Phone: 1(012)561-634812 [place] [address] 02-25-2023 19:41-0400 Heart rate 67 /min Dr. Daija Morton Work Phone: [facility] 02-25-2023 19:41-0400 Respiratory rate 15 /min Dr. Daija Morton Work Phone: [facility] 02-25-2023 19:41-0400 SaO2% (BldA) [Mass fraction] 97 % Dr. Daija Morton Work Phone: [facility] 02-25-2023 19:41-0400 Systolic blood pressure 193 mm[Hg] Dr. Daija Morton Work Phone: [facility] 02-25-2023 19:37-0400 Body mass index (BMI) [Ratio] 22.4 kg/m2 Dr. Daija Morton Work Phone: [facility] 02-25-2023 19:37-0400 Body weight 67.[address] Daija Morton Work Phone: [facility] 02-25-2023 17:22-0400 Body temperature 97 [degF] Dr. Daija Morton Work Phone: [facility] 02-18-2023 01:56-0400 Diastolic blood pressure 113 mm[Hg] [facility] 02-18-2023 01:56-0400 Heart rate 88 /min [facility] 02-18-2023 01:56-0400 Respiratory rate 16 /min [facility] 02-18-2023 01:56-0400 Systolic blood pressure 157 mm[Hg] [facility] 02-18-2023 01:00-0400 SaO2% (BldA) [Mass fraction] 98 % [facility] 02-17-2023 21:35-0400 Body mass index (BMI) [Ratio] 21.5 kg/m2 [facility] 02-17-2023 21:35-0400 Body weight 66.13 kg [facility] 02-17-2023 21:32-0400 Body height 175.26 cm [facility] 02-17-2023 21:32-0400 Body temperature 96.4 [degF] [facility] 12-31-2022 15:16-0400 Body height 173 cm [facility] 12-31-2022 15:16-0400 Body mass index (BMI) [Ratio] 21.7 kg/m2 [facility] 12-31-2022 15:16-0400 Body temperature 96.6 [degF] [facility] 12-31-2022 15:16-0400 Body weight 65.2 kg [facility] 12-31-2022 15:16-0400 Diastolic blood pressure 66 mm[Hg] [facility] 12-31-2022 15:16-0400 Heart rate 75 /min [facility] 12-31-2022 15:16-0400 Respiratory rate 15 /min [facility] 12-31-2022 15:16-0400 SaO2% (BldA) [Mass fraction] 93 % [facility] 12-31-2022 15:16-0400 Systolic blood pressure 118 mm[Hg] [facility] 12-26-2022 14:04-0400 Diastolic blood pressure 90 mm[Hg] Ryan May MD Work Phone: [facility] 12-26-2022 14:04-0400 Heart rate 50 /min Ryan May MD Work Phone: [facility] 12-26-2022 14:04-0400 Systolic blood pressure 207 mm[Hg] Ryan May MD Work Phone: [facility] 10-22-2022 21:40-0400 Diastolic Blood Pressure Non-Invasive [address] PRIYANKA FRANCO MD [facility] 10-22-2022 21:40-0400 Heart rate 88 /min DR PRIYANKA FRANCO MD [facility] 10-22-2022 21:40-0400 Respiratory rate 20 /min DR PRIYANKA FRANCO MD [facility] 10-22-2022 21:40-0400 Systolic Blood Pressure Non-Invasive [address] PRIYANKA FRANCO MD [facility] 10-22-2022 19:59-[address] PRIYANKA FRANCO MD [facility] 10-22-2022 19:59-0400 Body temperature 98.6 [degF] DR PRIYANKA FRANCO MD [facility] 10-22-2022 19:59-0400 Diastolic Blood Pressure Non-Invasive [address] PRIYANKA FRANCO MD [facility] 10-22-2022 19:59-0400 Heart rate 97 /min DR PRIYANKA FRANCO MD [facility] 10-22-2022 19:59-0400 Respiratory rate 21 /min DR PRIYANKA FRANCO MD [facility] 10-22-2022 19:59-0400 Systolic Blood Pressure Non-Invasive [address] PRIYANKA FRANCO MD [facility] 10-21-2022 18:30-0400 Body height 172.72 cm [facility] 10-21-2022 18:30-0400 Body temperature 97.5 [degF] [facility] 10-21-2022 18:30-0400 Diastolic blood pressure 88 mm[Hg] [facility] 10-21-2022 18:30-0400 Heart rate 99 /min [facility] 10-21-2022 18:30-0400 Respiratory rate 16 /min [facility] 10-21-2022 18:30-0400 SaO2% (BldA) [Mass fraction] 96 % [facility] 10-21-2022 18:30-0400 Systolic blood pressure 168 mm[Hg] [facility] 08-27-2022 10:51-0500 Diastolic blood pressure 91 mm[Hg] Daija Morton MD Work Phone: [facility] 08-27-2022 10:51-0500 Heart rate 69 /min Daija Morton MD Work Phone: [facility] 08-27-2022 10:51-0500 Systolic blood pressure 212 mm[Hg] Daija Morton MD Work Phone: [facility] 08-27-2022 10:47-0500 Body temperature 97 [degF] Daija Morton MD Work Phone: [facility] 08-27-2022 10:47-0500 Body weight 71.22 kg Daija Morton MD Work Phone: [facility] 08-27-2022 10:47-0500 Respiratory rate 28 /min Daija Morton MD Work Phone: [facility] 08-27-2022 10:47-0500 SaO2% (BldA) [Mass fraction] 95 % Daija Morton MD Work Phone: [facility] 03-10-2022 10:10-0400 Diastolic blood pressure 90 mm[Hg] Anjel Older SAP ABAP PROGRAMMER.BOTTLER HELPER Work Phone: [facility] 03-10-2022 10:10-0400 Heart rate 88 /min Anjel Older SAP ABAP PROGRAMMER.BOTTLER HELPER Work Phone: [facility] 03-10-2022 10:10-0400 Respiratory rate 16 /min Anjel Older SAP ABAP PROGRAMMER.BOTTLER HELPER Work Phone: [facility] 03-10-2022 10:10-0400 Systolic blood pressure 158 mm[Hg] Anjel Older SAP ABAP PROGRAMMER.BOTTLER HELPER Work Phone: [facility] 03-08-2022 23:13-0400 Diastolic blood pressure 93 mm[Hg] Dr. Daija Morton Work Phone: [facility] Work Phone: 03-08-2022 23:13-0400 Heart rate 71 /min Dr. Daija Morton Work Phone: [facility] Work Phone: 03-08-2022 23:13-0400 Inhaled oxygen flow rate 3 L/min Dr. Daija Morton Work Phone: [facility] Work Phone: 03-08-2022 23:13-0400 Respiratory rate 16 /min Dr. Daija Morton Work Phone: [facility] Work Phone: 03-08-2022 23:13-0400 SaO2% (BldA) [Mass fraction] 96 % Dr. Daija Morton Work Phone: [facility] Work Phone: 03-08-2022 23:13-0400 Systolic blood pressure 178 mm[Hg] Dr. Daija Morton Work Phone: [facility] Work Phone: 03-08-2022 17:31-0400 Body height 172.[address] Daija Morton Work Phone: [facility] Work Phone: 03-08-2022 17:31-0400 Body mass index (BMI) [Ratio] 20.5 kg/m2 Dr. Daija Morton Work Phone: [facility] Work Phone: 03-08-2022 17:31-0400 Body temperature 97.6 [degF] Dr. Daija Morton Work Phone: [facility] Work Phone: 03-08-2022 17:31-0400 Body weight 61.[address] Daija Morton Work Phone: [facility] Work Phone: 03-07-2022 17:28-0400 Respiratory rate 18 /min Dr. Daija Morton Work Phone: [facility] Work Phone: 03-07-2022 15:23-0400 Body height 172.[address] Daija Morton Work Phone: [facility] Work Phone: 03-07-2022 15:23-0400 Body mass index (BMI) [Ratio] 20.5 kg/m2 Dr. Daija Morton Work Phone: [facility] Work Phone: 03-07-2022 15:23-0400 Body temperature 97.4 [degF] Dr. Daija Morton Work Phone: [facility] Work Phone: 03-07-2022 15:23-0400 Body weight 61.[address] Daija Morton Work Phone: [facility] Work Phone: 03-07-2022 15:23-0400 Diastolic blood pressure 88 mm[Hg] Dr. Daija Morton Work Phone: [facility] Work Phone: 03-07-2022 15:23-0400 Heart rate 84 /min Dr. Daija Morton Work Phone: [facility] Work Phone: 03-07-2022 15:23-0400 SaO2% (BldA) [Mass fraction] 93 % Dr. Daija Morton Work Phone: [facility] Work Phone: 03-07-2022 15:23-0400 Systolic blood pressure 193 mm[Hg] Dr. Daija Morton Work Phone: [facility] Work Phone: 03-02-2022 19:05-0400 Diastolic blood pressure 81 mm[Hg] Dr. Daija Morton Work Phone: [facility] Work Phone: 03-02-2022 19:05-0400 Heart rate 56 /min Dr. Daija Morton Work Phone: [facility] Work Phone: 03-02-2022 19:05-0400 Respiratory rate 18 /min Dr. Daija Morton Work Phone: [facility] Work Phone: 03-02-2022 19:05-0400 SaO2% (BldA) [Mass fraction] 92 % Dr. Daija Morton Work Phone: [facility] Work Phone: 03-02-2022 19:05-0400 Systolic blood pressure 209 mm[Hg] Dr. Daija Morton Work Phone: [facility] Work Phone: 03-02-2022 17:41-0400 Body temperature 97.5 [degF] Dr. Daija Morton Work Phone: [facility] Work Phone: 03-02-2022 15:10-0400 Body height 172.[address] Daija Morton Work Phone: [facility] Work Phone: 03-02-2022 15:10-0400 Body mass index (BMI) [Ratio] 23.5 kg/m2 Dr. Daija Morton Work Phone: [facility] Work Phone: 03-02-2022 15:10-0400 Body weight 70.[address] Daija Morton Work Phone: [facility] Work Phone: 01-31-2022 13:59-0400 Body height 172.7 cm Ryan May MD Work Phone: [facility] 01-31-2022 13:59-0400 Body weight 68.49 kg Ryan May MD Work Phone: [facility] 01-31-2022 13:59-0400 Diastolic blood pressure 99 mm[Hg] Ryan May MD Work Phone: [facility] 01-31-2022 13:59-0400 Systolic blood pressure 168 mm[Hg] Ryan May MD Work Phone: [facility] 01-28-2022 15:53-0400 Diastolic blood pressure 88 mm[Hg] Dr. Daija Morton Work Phone: [facility] Work Phone: 01-28-2022 15:53-0400 Heart rate 54 /min Dr. Daija Morton Work Phone: [facility] Work Phone: 01-28-2022 15:53-0400 Respiratory rate 20 /min Dr. Daija Morton Work Phone: [facility] Work Phone: 01-28-2022 15:53-0400 SaO2% (BldA) [Mass fraction] 97 % Dr. Daija Morton Work Phone: [facility] Work Phone: 01-28-2022 15:53-0400 Systolic blood pressure 200 mm[Hg] Dr. Daija Morton Work Phone: [facility] Work Phone: 01-28-2022 14:03-0400 Body height 172.[address] Daija Morton Work Phone: [facility] Work Phone: 01-28-2022 14:03-0400 Body mass index (BMI) [Ratio] 22.9 kg/m2 Dr. Daija Morton Work Phone: [facility] Work Phone: 01-28-2022 14:03-0400 Body temperature 96.8 [degF] Dr. Daija Morton Work Phone: [facility] Work Phone: 01-28-2022 14:03-0400 Body weight 68.[address] Daija Morton Work Phone: [facility] Work Phone: 01-28-2022 11:41-0400 Diastolic blood pressure 92 mm[Hg] Anjel Older SAP ABAP PROGRAMMER.BOTTLER HELPER Work Phone: [facility] 01-28-2022 11:41-0400 Heart rate 56 /min Anjel Older SAP ABAP PROGRAMMER.BOTTLER HELPER Work Phone: [facility] 01-28-2022 11:41-0400 Systolic blood pressure 200 mm[Hg] Anjel Older SAP ABAP PROGRAMMER.BOTTLER HELPER Work Phone: [facility] 01-28-2022 10:57-0400 Body weight 68.49 kg Anjel Older SAP ABAP PROGRAMMER.BOTTLER HELPER Work Phone: [facility] 01-28-2022 10:57-0400 Respiratory rate 16 /min Anjel Older SAP ABAP PROGRAMMER.BOTTLER HELPER Work Phone: [facility] 01-20-2022 13:23-0400 Diastolic blood pressure 102 mm[Hg] Ye Coello MD Work Phone: [facility] 01-20-2022 13:23-0400 Heart rate 61 /min Ye Coello MD Work Phone: [facility] 01-20-2022 13:23-0400 SaO2% (BldA) [Mass fraction] 94 % Ye Coello MD Work Phone: [facility] 01-20-2022 13:23-0400 Systolic blood pressure 172 mm[Hg] Ye Coello MD Work Phone: [facility] 01-14-2022 10:26-0400 Body temperature 98.2 [degF] Harriett Albert SAP ABAP PROGRAMMER.CUT OUT MACHINE OPERATOR Work Phone: [facility] 01-14-2022 10:26-0400 Body weight 69.67 kg Harriett Albert SAP ABAP PROGRAMMER.CUT OUT MACHINE OPERATOR Work Phone: [facility] 01-14-2022 10:26-0400 Diastolic blood pressure 80 mm[Hg] Harriett Albert SAP ABAP PROGRAMMER.CUT OUT MACHINE OPERATOR Work Phone: [facility] 01-14-2022 10:26-0400 Heart rate 78 /min Harriett Albert SAP ABAP PROGRAMMER.CUT OUT MACHINE OPERATOR Work Phone: [facility] 01-14-2022 10:26-0400 Respiratory rate 16 /min Harriett Albert APRN.CUT OUT MACHINE OPERATOR Work Phone: [facility] 01-14-2022 10:26-0400 SaO2% (BldA) [Mass fraction] 95 % Harriett Albert SAP ABAP PROGRAMMER.CUT OUT MACHINE OPERATOR Work Phone: [facility] 01-14-2022 10:26-0400 Systolic blood pressure 186 mm[Hg] Harriett Albert APRN.CUT OUT MACHINE OPERATOR Work Phone: [facility] 11-30-2021 15:02-0400 Heart rate 75 /min Dr. Daija Morton Work Phone: [facility] Work Phone: 11-30-2021 15:02-0400 Respiratory rate 17 /min Dr. Daija Morton Work Phone: [facility] Work Phone: 11-30-2021 13:57-0400 Body temperature 97.4 [degF] Dr. Daija Morton Work Phone: [facility] Work Phone: 11-30-2021 13:57-0400 Diastolic blood pressure 67 mm[Hg] Dr. Daija Morton Work Phone: [facility] Work Phone: 11-30-2021 13:57-0400 SaO2% (BldA) [Mass fraction] 93 % Dr. Daija Morton Work Phone: [facility] Work Phone: 11-30-2021 13:57-0400 Systolic blood pressure 161 mm[Hg] Dr. Daija Morton Work Phone: [facility] Work Phone: 11-30-2021 11:25-0400 Inhaled oxygen flow rate 3 L/min Dr. Daija Morton Work Phone: [facility] Work Phone: 11-29-2021 12:48-0400 Body height 172.[address] Daija Morton Work Phone: [facility] Work Phone: 11-29-2021 12:48-0400 Body weight 71.[address] Daija Morton Work Phone: [facility] Work Phone: 11-27-2021 05:25-0400 Body mass index (BMI) [Ratio] 24 kg/m2 Dr. Daija Morton Work Phone: [facility] Work Phone: 11-25-2021 21:36-0400 Body temperature 97.8 [degF] Dr. Daija Morton Work Phone: [facility] Work Phone: 11-25-2021 21:36-0400 Diastolic blood pressure 40 mm[Hg] Dr. Daija Morton Work Phone: [facility] Work Phone: 11-25-2021 21:36-0400 Heart rate 66 /min Dr. Daija Morton Work Phone: [facility] Work Phone: 11-25-2021 21:36-0400 Respiratory rate 16 /min Dr. Daija Morton Work Phone: [facility] Work Phone: 11-25-2021 21:36-0400 SaO2% (BldA) [Mass fraction] 96 % Dr. Daija Morton Work Phone: [facility] Work Phone: 11-25-2021 21:36-0400 Systolic blood pressure 133 mm[Hg] Dr. Daija Morton Work Phone: [facility] Work Phone: 11-25-2021 17:29-0400 Body height 172.[address] Daija Morton Work Phone: [facility] Work Phone: 11-25-2021 17:29-0400 Body mass index (BMI) [Ratio] 24.7 kg/m2 Dr. Daija Morton Work Phone: [facility] Work Phone: 11-25-2021 17:29-0400 Body weight 73.[address] Daija Morton Work Phone: [facility] Work Phone: 11-16-2021 14:37-0400 Body height 172.7 cm Estephania Pierre SAP ABAP PROGRAMMER.BOTTLER HELPER Work Phone: [facility] 11-16-2021 14:37-0400 Body weight 71.67 kg Estephania Pierre SAP ABAP PROGRAMMER.BOTTLER HELPER Work Phone: [facility] 11-16-2021 14:37-0400 Diastolic blood pressure 68 mm[Hg] Estephania Pierre SAP ABAP PROGRAMMER.BOTTLER HELPER Work Phone: [facility] 11-16-2021 14:37-0400 Heart rate 64 /min Estephania Pierre SAP ABAP PROGRAMMER.BOTTLER HELPER Work Phone: [facility] 11-16-2021 14:37-0400 SaO2% (BldA) [Mass fraction] 100 % Estephania Pierre SAP ABAP PROGRAMMER.BOTTLER HELPER Work Phone: [facility] 11-16-2021 14:37-0400 Systolic blood pressure 162 mm[Hg] Estephania Pierre SAP ABAP PROGRAMMER.BOTTLER HELPER Work Phone: [facility] 11-08-2021 12:50-0400 Heart rate 73 /min Respiratory Wstr Work Phone: [facility] 11-08-2021 12:50-0400 Respiratory rate 14 /min Respiratory Wstr Work Phone: [facility] 11-08-2021 12:50-0400 SaO2% (BldA) [Mass fraction] 97 % Respiratory Wstr Work Phone: [facility] 11-05-2021 11:22-0400 Body weight 70.31 kg Emilie Shania PA-C Work Phone: [facility] 11-05-2021 11:22-0400 Diastolic blood pressure 68 mm[Hg] Emilie Shania PA-C Work Phone: [facility] 11-05-2021 11:22-0400 Heart rate 71 /min Emilie Shania PA-C Work Phone: [facility] 11-05-2021 11:22-0400 Respiratory rate 20 /min Emilie Shania PA-C Work Phone: [facility] 11-05-2021 11:22-0400 SaO2% (BldA) [Mass fraction] 99 % Emilie Shania PA-C Work Phone: [facility] 11-05-2021 11:22-0400 Systolic blood pressure 140 mm[Hg] Emilie Shania PA-C Work Phone: [facility] 10-21-2021 11:30-0400 Diastolic blood pressure 65 mm[Hg] Mi Nurse Work Phone: [facility] 10-21-2021 11:30-0400 Heart rate 81 /min Mi Nurse Work Phone: [facility] 10-21-2021 11:30-0400 Systolic blood pressure 155 mm[Hg] Mi Nurse Work Phone: [facility] 10-13-2021 13:00-0400 Body height 172.7 cm Ye Coello MD Work Phone: [facility] 10-13-2021 13:00-0400 Body weight 71.67 kg Ye Coello MD Work Phone: [facility] 10-13-2021 13:00-0400 Diastolic blood pressure 93 mm[Hg] Ye Coello MD Work Phone: [facility] 10-13-2021 13:00-0400 Heart rate 66 /min Ye Coello MD Work Phone: [facility] 10-13-2021 13:00-0400 Systolic blood pressure 217 mm[Hg] Ye Coello MD Work Phone: [facility] 10-08-2021 17:14-0400 Diastolic blood pressure 62 mm[Hg] Dr. Daija Morton Work Phone: [facility] Work Phone: 10-08-2021 17:14-0400 Heart rate 58 /min Dr. Daija Morton Work Phone: [facility] Work Phone: 10-08-2021 17:14-0400 Respiratory rate 18 /min Dr. Daija Morton Work Phone: [facility] Work Phone: 10-08-2021 17:14-0400 SaO2% (BldA) [Mass fraction] 98 % Dr. Daija Morton Work Phone: [facility] Work Phone: 10-08-2021 17:14-0400 Systolic blood pressure 149 mm[Hg] Dr. Daija Morton Work Phone: [facility] Work Phone: 10-08-2021 14:12-0400 Body height 172.[address] Daija Morotn Work Phone: [facility] Work Phone: 10-08-2021 14:12-0400 Body mass index (BMI) [Ratio] 24.7 kg/m2 Dr. Daija Morton Work Phone: [facility] Work Phone: 10-08-2021 14:12-0400 Body temperature 98.1 [degF] Dr. Daija Morton Work Phone: [facility] Work Phone: 10-08-2021 14:12-0400 Body weight 73.[address] Daija Morton Work Phone: [facility] Work Phone: 10-07-2021 11:17-0400 Body temperature 97.59 [degF] Anjel Older SAP ABAP PROGRAMMER.BOTTLER HELPER Work Phone: [facility] 10-07-2021 11:17-0400 Body weight 70.31 kg Anjel Older SAP ABAP PROGRAMMER.BOTTLER HELPER Work Phone: [facility] 10-07-2021 11:17-0400 Diastolic blood pressure 90 mm[Hg] Anjel Older SAP ABAP PROGRAMMER.BOTTLER HELPER Work Phone: [facility] 10-07-2021 11:17-0400 Heart rate 67 /min Anjel Older SAP ABAP PROGRAMMER.BOTTLER HELPER Work Phone: [facility] 10-07-2021 11:17-0400 Respiratory rate 12 /min Anjel Older SAP ABAP PROGRAMMER.BOTTLER HELPER Work Phone: [facility] 10-07-2021 11:17-0400 SaO2% (BldA) [Mass fraction] 96 % Older SAP ABAP PROGRAMMER.BOTTLER HELPER Work Phone: [facility] 10-07-2021 11:17-0400 Systolic blood pressure 178 mm[Hg] SAP ABAP PROGRAMMER.BOTTLER HELPER Work Phone: [facility] 09-29-2021 16:20-0400 Body temperature 98.24 [degF] DR PRIYANKA FRANCO MD [facility] 09-29-2021 16:20-0400 Diastolic blood pressure 91 mm[Hg] DR PRIYANKA FRANCO MD [facility] 09-29-2021 16:20-0400 Heart rate 80 /min DR PRIYANKA FRANCO MD [facility] 09-29-2021 16:20-0400 Respiratory rate 18 /min DR PRIYANKA FRANCO MD [facility] 09-29-2021 16:20-0400 Systolic blood pressure 189 mm[Hg] DR PRIYANKA FRANCO MD [facility] 09-17-2021 20:16-0400 Body temperature 97.3 [degF] Dr. Daija Morton Work Phone: [facility] Work Phone: 09-17-2021 20:16-0400 Diastolic blood pressure 80 mm[Hg] Dr. Daija Morton Work Phone: [facility] Work Phone: 09-17-2021 20:16-0400 Heart rate 85 /min Dr. Daija Morton Work Phone: [facility] Work Phone: 09-17-2021 20:16-0400 Respiratory rate 17 /min Dr. Daija Morton Work Phone: [facility] Work Phone: 09-17-2021 20:16-0400 SaO2% (BldA) [Mass fraction] 96 % Dr. Daija Morton Work Phone: [facility] Work Phone: 09-17-2021 20:16-0400 Systolic blood pressure 171 mm[Hg] Dr. Daija Morton Work Phone: [facility] Work Phone: 09-17-2021 16:56-0400 Body height 172.[address] Daija Morton Work Phone: [facility] Work Phone: 09-17-2021 16:56-0400 Body mass index (BMI) [Ratio] 23.7 kg/m2 Dr. Daija Morton Work Phone: [facility] Work Phone: 09-17-2021 16:56-0400 Body weight 70.[address] Daija Morton Work Phone: [facility] Work Phone: 09-15-2021 17:40-0400 Diastolic blood pressure 73 mm[Hg] Anjel Older SAP ABAP PROGRAMMER.BOTTLER HELPER Work Phone: [facility] 09-15-2021 17:40-0400 Systolic blood pressure 170 mm[Hg] Anjel Older SAP ABAP PROGRAMMER.BOTTLER HELPER Work Phone: [facility] 09-15-2021 16:57-0400 Body weight 71.22 kg Anjel Older SAP ABAP PROGRAMMER.BOTTLER HELPER Work Phone: [facility] 09-15-2021 16:57-0400 Heart rate 68 /min Anjel Older SAP ABAP PROGRAMMER.BOTTLER HELPER Work Phone: [facility] 09-15-2021 16:57-0400 Respiratory rate 16 /min Anjel Older SAP ABAP PROGRAMMER.BOTTLER HELPER Work Phone: [facility] 09-15-2021 16:18-0400 Body height 172.7 cm Kaye Ortega MD Work Phone: [facility] 09-15-2021 16:18-0400 Body temperature 97.39 [degF] Kaye Ortega MD Work Phone: [facility] 09-15-2021 16:18-0400 Body weight 71.67 kg Kaye Ortega MD Work Phone: [facility] 09-15-2021 16:18-0400 Diastolic blood pressure 72 mm[Hg] Kaye Ortega MD Work Phone: [facility] 09-15-2021 16:18-0400 Heart rate 78 /min Kaye Ortega MD Work Phone: [facility] 09-15-2021 16:18-0400 SaO2% (BldA) [Mass fraction] 96 % Kaye Ortega MD Work Phone: [facility] 09-15-2021 16:18-0400 Systolic blood pressure 138 mm[Hg] Kaye Ortega MD Work Phone: [facility] 08-21-2021 09:30-0500 Body temperature 97.6 [degF] Dr. Daija Morton Work Phone: [facility] Work Phone: 08-21-2021 09:30-0500 Diastolic blood pressure 69 mm[Hg] Dr. Daija Morton Work Phone: [facility] Work Phone: 08-21-2021 09:30-0500 Heart rate 61 /min Dr. Daija Morton Work Phone: [facility] Work Phone: 08-21-2021 09:30-0500 Inhaled oxygen flow rate 3 L/min Dr. Daija Morton Work Phone: [facility] Work Phone: 08-21-2021 09:30-0500 Respiratory rate 18 /min Dr. Daija Morton Work Phone: [facility] Work Phone: 08-21-2021 09:30-0500 SaO2% (BldA) [Mass fraction] 98 % Dr. Daija Morton Work Phone: [facility] Work Phone: 08-21-2021 09:30-0500 Systolic blood pressure 183 mm[Hg] Dr. Daija Morton Work Phone: [facility] Work Phone: 08-21-2021 08:30-0500 Body temperature 97.6 [degF] Dr. Daija Morton Work Phone: [facility] Work Phone: 08-21-2021 08:30-0500 Diastolic blood pressure 69 mm[Hg] Dr. Daija Morton Work Phone: [facility] Work Phone: 08-21-2021 08:30-0500 Heart rate 61 /min Dr. Daija Morton Work Phone: [facility] Work Phone: 08-21-2021 08:30-0500 Respiratory rate 18 /min Dr. Daija Morton Work Phone: [facility] Work Phone: 08-21-2021 08:30-0500 SaO2% (BldA) [Mass fraction] 98 % Dr. Daija Morton Work Phone: [facility] Work Phone: 08-21-2021 08:30-0500 Systolic blood pressure 183 mm[Hg] Dr. Daija Morton Work Phone: [facility] Work Phone: 08-20-2021 06:18-0500 Body mass index (BMI) [Ratio] 23.7 kg/m2 Dr. Daija Morton Work Phone: [facility] Work Phone: 08-20-2021 06:18-0500 Body weight [address] Daija Morton Work Phone: [facility] Work Phone: 08-20-2021 05:18-0500 Body mass index (BMI) [Ratio] 23.7 kg/m2 Dr. Daija Morton Work Phone: [facility] Work Phone: 08-20-2021 05:18-0500 Body weight [address] Daija Morton Work Phone: [facility] Work Phone: 08-12-2021 03:26-0500 Diastolic blood pressure 89 mm[Hg] Dr. Daija Morton Work Phone: [facility] Work Phone: 08-12-2021 03:26-0500 Heart rate 70 /min Dr. Daija Morton Work Phone: [facility] Work Phone: 08-12-2021 03:26-0500 Respiratory rate 18 /min Dr. Daija Morton Work Phone: [facility] Work Phone: 08-12-2021 03:26-0500 SaO2% (BldA) [Mass fraction] 93 % Dr. Daija Morton Work Phone: [facility] Work Phone: 08-12-2021 03:26-0500 Systolic blood pressure 211 mm[Hg] Dr. Daija Morton Work Phone: [facility] Work Phone: 08-11-2021 23:32-0500 Body mass index (BMI) [Ratio] 24.8 kg/m2 Dr. Daija Morton Work Phone: [facility] Work Phone: 08-11-2021 23:32-0500 Body temperature 97.5 [degF] Dr. Daija Morton Work Phone: [facility] Work Phone: 08-11-2021 23:32-0500 Body weight 74.[address] Daija Morton Work Phone: [facility] Work Phone: 06-12-2021 15:55-0500 Diastolic blood pressure 81 mm[Hg] Dr. Daija Morton Work Phone: [facility] Work Phone: 06-12-2021 15:55-0500 Heart rate 61 /min Dr. Daija Morton Work Phone: [facility] Work Phone: 06-12-2021 15:55-0500 Systolic blood pressure 182 mm[Hg] Dr. Daija Morton Work Phone: [facility] Work Phone: 06-12-2021 15:15-0500 Body mass index (BMI) [Ratio] 24.6 kg/m2 Dr. Daija Morton Work Phone: [facility] Work Phone: 06-12-2021 15:15-0500 Body temperature 96.8 [degF] Dr. Daija Morton Work Phone: [facility] Work Phone: 06-12-2021 15:15-0500 Body weight 73.[address] Daija Morton Work Phone: [facility] Work Phone: 06-12-2021 15:15-0500 Respiratory rate 18 /min Dr. Daija Morton Work Phone: [facility] Work Phone: 06-12-2021 15:15-0500 SaO2% (BldA) [Mass fraction] 96 % Dr. Daija Morton Work Phone: [facility] Work Phone: 06-04-2021 23:37-0500 Respiratory rate 18 /min Dr. Daija Morton Work Phone: [facility] Work Phone: 06-04-2021 22:01-0500 Body mass index (BMI) [Ratio] 23.6 kg/m2 Dr. Daija Morton Work Phone: [facility] Work Phone: 06-04-2021 22:01-0500 Body temperature 97.1 [degF] Dr. Daija Morton Work Phone: [facility] Work Phone: 06-04-2021 22:01-0500 Body weight 70.[address] Daija Morton Work Phone: [facility] Work Phone: 06-04-2021 22:01-0500 Diastolic blood pressure 99 mm[Hg] Dr. Daija Morton Work Phone: [facility] Work Phone: 06-04-2021 22:01-0500 Heart rate 87 /min Dr. Daija Morton Work Phone: [facility] Work Phone: 06-04-2021 22:01-0500 SaO2% (BldA) [Mass fraction] 97 % Dr. Daija Morton Work Phone: [facility] Work Phone: 06-04-2021 22:01-0500 Systolic blood pressure 202 mm[Hg] Dr. Daija Morton Work Phone: [facility] Work Phone: Encounters Encounter Date Encounter Type Care Provider Facility Start: 12-31-2024 ambulatory [facility] O[facility] Fa cility:[facility] Start: 12-30-2024 ambulatory [facility] OLS Fa cility:[facility] Start: 12-26-2024 End: 12-26-2024 Follow-up encounter Anjel Braga APRN.CNP Work Phone: [facility] [place] Start: 12-26-2024 Dr. Shilpa edwards MD -[facility] Work Phone: Start: 12-25-2024 Dr. Shilpa edwards MD -[facility] Work Phone: Start: 12-24-[address] [facility] Start: 12-24-2024 Dr. Shilpa edwards MD -[place] [facility] Work Phone: Start: 12-23-[address] [facility] Start: 12-23-2024 ambulatory Raul Jensen Facility:[facility] Start: 12-23-2024 Dr. Raul Jensen MD -[facility] Start: 12-23-2024 Dr. Shilpa edwards MD -[place] [facility] Work Phone: Start: 12-22-2024 Dr. Lisha Talamantes DO [facility] Work Phone: Start: 12-21-2024 Dr. Lisha Talamantes DO [facility] Work Phone: Start: 12-20-2024 Dr. Lisha Talamantes DO [facility] Work Phone: Start: 12-19-2024 Dr. Lisha Talamantes DO [facility] Work Phone: Start: 12-18-2024 ambulatory Roman Patel [facility] ility[facility] Start: 12-18-2024 End: 12-26-2024 Evaluation and management of inpatient Dr. Daija Morton MD Work Phone: -[facility] Start: 12-18-2024 End: 12-26-2024 Dr. Shilpa Contreras MD -[facility] Work Phone: Start: 12-18-2024 ambulatory Milton Guajardo Facility:[facility] Start: 12-18-2024 Dr. Milton Guajardo MD -[facility] Start: 12-17-[address] Germain Morton MD Work Phone: -[facility] Start: 12-17-2024 Dr. Roman Patel [facility] Work Phone: Start: 12-17-2024 End: 12-20-2024 ambulatory Daija Morton MD Work Phone: Internal Medicine [place] [id number] Start: 12-17-2024 End: 12-24-2024 Telephone encounter Daija Morton MD Work Phone: [facility] [place] Comment on above: Patient Update Start: 12-16-2024 End: 12-17-2024 Refill Daija Morton MD Work Phone: [facility] [place] Comment on above: Refill Request SOB (shortness of br eath) (Primary Dx) Start: 12-16-2024 Dr. Lisha Talamantes DO -[facility] Work Phone: Start: 12-15-2024 Dr. Lisha Talamantes DO -[facility] Work Phone: Start: 12-14-2024 Dr. Lisha Talamantes DO [facility] Work Phone: Start: 12-13-2024 Non-patient / Non-visit Dr. Kisha Contreras MD -[facility] Work Phone: Start: 12-13-2024 End: 12-16-2024 Evaluation and management of inpatient Dr. Shilpa Contreras MD -[facility] Work Phone: Start: 12-13-2024 End: 12-16-2024 Dr. Lisha Talamantes DO -[facility] Work Phone: Start: 12-13-2024 End: 12-13-2024 Refill Daija Morton MD Work Phone: [facility] [place] Comment on above: Refill Request Orders [facility] requesting r ecords Start: 12-12-2024 End: 12-12-2024 Subsequent hospital visit by physician Xr [facility] [place] Work Phone: Radiology Comment on above: Wheezing [R06.2] Start: 12-12-2024 End: 12-12-2024 ambulatory [facility] Facility:[facility] Start: 12-12-2024 End: 12-12-2024 Office outpatient visit 25 minutes Anejl Braga APRN.CNP Work Phone: [facility] [place] Comment on above: Other emphysema (HCC ) (Primary Dx); Smoker; Wheezing; Lower abdominal tenderness; Loose stools; On home oxygen therapy; Primary hypertension; Left leg pain; Falls; Weakness Start: 12-12-2024 End: 12-12-2024 ambulatory ANJEL BRAGA Facility:[facility] Start: 12-09-2024 End: 12-09-2024 Telephone encounter Daija Morton MD Work Phone: [facility] [place] Comment on above: Home Care Management ; Patient Update Start: 12-06-2024 End: 12-06-2024 Telephone encounter Daija Morton MD Work Phone: [facility] [place] Comment on above: [place] Ramiro Tende rs update Start: 12-03-2024 End: 12-04-2024 Telephone encounter Daija Morton MD Work Phone: [facility] [place] Comment on above: Home Health Orders Start: 12-02-2024 ambulatory Carla RAIN Facili ty:[facility] Start: 12-02-[address] Carla Prather MD [facility] Start: 12-02-2024 Dr. Carla Prather MD [facility] Start: 11-05-2024 End: 11-05-[address] Daija Morton MD Work Phone: [facility] Work Phone: Start: 11-05-2024 End: 11-05-[address] Carla Prather MD [facility] Start: 11-05-2024 End: 11-05-2024 Dr. Carla Prather MD [facility] Start: 11-05-2024 End: 11-05-2024 ambulatory Carla RAIN Facility:[facility] Start: 10-16-2024 ambulatory Carla RAIN Facili ty:[facility] Start: 10-16-[address] Carla Prather MD [facility] Start: 10-16-2024 Dr. Carla Prather MD [facility] Start: 09-02-2024 Non-patient / Non-visit Dr. Brody Maynard MD [facility] Work Phone: Start: 09-02-2024 Dr. Brody Maynard MD [facility] Work Phone: Start: 09-01-2024 Non-patient / Non-visit Dr. Celia rapp MD [facility] Work Phone: Start: 09-01-2024 Dr. Celia Toribio MD [facility] Work Phone: Start: 08-31-2024 Non-patient / Non-visit Dr. Celia rapp MD [facility] Work Phone: Start: 08-31-2024 Dr. Celia Toribio MD [facility] Work Phone: Start: 08-30-2024 Non-patient / Non-visit Dr. Celia Nam [facility] Work Phone: Start: 08-30-2024 Dr. Celia Toribio MD [facility] Work Phone: Start: 08-29-2024 Non-patient / Non-visit Dr. Celia rapp MD [facility] Work Phone: Start: 08-29-2024 Dr. Celia Toribio MD [facility] Work Phone: Start: 08-28-2024 Non-patient / Non-visit Dr. Celia rapp MD [facility] Work Phone: Start: 08-28-2024 Dr. Celia Toribio MD [facility] Work Phone: Start: 08-27-2024 ambulatory Lisha Talamantes [facility] Start: 08-27-2024 End: 09-02-2024 Evaluation and management of inpatient Dr. Brody Maynard MD -[facility] Work Phone: Start: 08-27-2024 End: 09-02-2024 Dr. Brody Maynard MD [facility] Work Phone: Start: 08-27-2024 Non-patient / Non-visit Dr. Celia rapp MD [place] [facility] Work Phone: Start: 08-27-2024 Dr. Celia [facility] Work Phone: Start: 08-26-2024 Non-patient / Non-visit Dr. Celia rapp MD [place] [facility] Work Phone: Start: 08-26-2024 Dr. Celia [facility] Work Phone: Start: 08-25-2024 Non-patient / Non-visit Dr. Lisha [facility] Work Phone: Start: 08-25-2024 Dr. Lisha Talamantes DO [facility] Work Phone: Start: 08-25-2024 ambulatory Lisha Talamantes [facility] Start: 08-25-2024 Evaluation and management of inpatient Dr. Lisha Talamantes DO -[facility] Work Phone: Start: 08-25-[address] Germain Morton MD Work Phone: [facility] Work Phone: Start: 07-15-2024 ambulatory Carla RAIN Facili ty:[facility] Start: 07-15-[address] Carla Prather MD -[facility] Start: 05-17-2024 End: 05-17-2024 Telephone encounter Daija Morton MD Work Phone: [facility] [place] Comment on above: Patient Update Start: 04-29-2024 End: 05-14-2024 Telephone encounter Daija Morton MD Work Phone: [facility] [place] Comment on above: Patient Update Start: 04-12-2024 ambulatory Carla Kalgavina OLS Facili ty:[facility] Start: 04-08-2024 ambulatory Maxi Curtis [facility] Start: 04-07-2024 ambulatory [facility]: [facility] Start: 04-07-2024 End: 04-10-2024 Evaluation and management of inpatient [facility] Facility:[facility] Start: 04-06-2024 ambulatory Kathi Ibrahim Facility :[facility] Start: 04-04-2024 End: 04-24-2024 Telephone encounter Daija Morton MD Work Phone: [facility] [place] Comment on above: Patient Update Start: 03-31-2024 End: 04-04-2024 Telephone encounter Sera SALDIVAR Work Phone: [facility] Comment on above: Results Start: 03-25-2024 End: 03-25-2024 Telephone encounter Sera SALDIVAR Work Phone: [facility] Comment on above: Results Start: 03-23-2024 End: 03-23-2024 ambulatory DAIJA MORTON Facility:[facility] Start: 03-23-2024 End: 03-23-2024 Patient encounter procedure Pura Carter APRN.CNP Work Phone: [facility] Comment on above: Uncontrolled hyperte nsion (Primary Dx); Dysuria; Urinary tract infection without hematuria, site unspecified Start: 03-12-2024 End: 03-12-2024 Refill Daija Morton MD Work Phone: [facility] [place] Comment on above: Refill Request Start: 02-20-2024 End: 02-20-2024 Emergency department patient visit Olayinka Cordova Facility:[facility] Start: 01-23-2024 Refill Daija Damon Work Phone: [facility] [place] Comment on above: Refill Request Start: 01-03-2024 End: 01-03-2024 Emergency department patient visit Jb Vitor Facility:[facility] Start: 01-02-2024 Orders Only Ryan May MD Work Phone: Vascular Surgery Comment on above: Peripheral arterial disease (HCC) (Primary Dx) Start: 01-01-2024 Telephone encounter Daija pressley MD Work Phone: [facility] [place] Comment on above: No Show Start: 12-22-2023 Telephone encounter Daija pressley MD Work Phone: [facility] [place] Comment on above: Mental status change Start: 12-08-2023 Telephone encounter Daija pressley MD Work Phone: [facility] [place] Comment on above: Patient Update Start: 11-21-2023 End: 11-21-2023 Office outpatient visit 25 minutes Rebekah Luu PA-C Work Phone: [facility] [place] Comment on above: COPD with chronic br [...] Rebekah Luu PA-C Work Phone: [facility] [place] Comment on above: Orders (Follow skill ed nursing orders from [facility]) Start: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 assay Dr. Germain Morton Work Phone: Plan of Treatment Date Care Activity Detail Author Start: 06-04-2031 Urine microalbumin profile [facility] Start: 12-13-2027 Diabetes Screening Diabetes Screening [facility] Start: 11-27-2026 Colonoscopy COLONOSCOPY [facility] Start: 11-27-2026 COLORECTAL CANCER SCREENING COLORECTAL CANCER SCREENING [facility] Start: 11-27-2026 Screening for malignant neoplasm of colon [facility] Start: 12-12-2025 Annual PCP Team Chronic Disease Visit Annual PCP Team Chronic Disease Visit [facility] Start: 02-17-2025 Influenza vaccination [facility] Start: 02-04-2025 DIABETES SCREEN DIABETES SCREEN [facility] Start: 02-04-2025 Diabetes Screening Diabetes Screening [facility] Start: 01-01-2025 End: 01-01-2025 Patient encounter procedure 01/01/2025 2:00 PM EDT Office Visit [facility] [place] [address] [place], [place] [id number] Anjel Braga APRN.[facility] [address] [place], [place] [id number] 2 week follow up [facility] [place] Comment on above: 2 week follow up Start: 12-26-2024 Patient discharge [facility] Start: 12-26-2024 Care planning and problem solving actions [facility] Start: 12-25-2024 End: 12-25-2024 Patient encounter procedure 12/25/2024 1:00 PM EDT Office Visit Pulmonary Medicine [address] [address] Priscilla Barillas MD [address] [place] [address] Other emphysema (HCC) [J43.8]; Smoker [F17.200] Pulmonary Medicine Comment on above: Other emphysema (HCC) [J43.8]; Smoker [F 17.200] Start: 12-25-2024 End: 12-25-2024 ambulatory Pulmonary Medicine Comment on above: Other emphysema (HCC) [J43.8]; Smoker [F 17.200] * Other emphysema (H CC) [J43.8]; Smoker [F17.200] Start: 12-22-2024 [facility] Start: 12-22-2024 Electroencephalogram [facility] Start: 12-19-2024 Referral to gastroenterology service [facility] Start: 12-18-2024 Admission procedure [facility] Start: 12-18-2024 Contact precautions [facility] Start: 12-18-2024 Inhalation therapy procedure [facility] Start: 12-17-2024 Following clinical pathway protocol [facility] Start: 12-17-2024 Application of intermittent pneumatic compression device [facility] Start: 12-17-2024 Aspiration precautions [facility] Start: 12-17-2024 Assessment of risk of venous thromboembolism [facility] Start: 12-17-2024 Cardiac monitoring [facility] Start: 12-17-2024 Catheterization of vein [facility] Start: 12-17-2024 Consultation [facility] Start: 12-17-2024 Elevation of head of bed [facility] Start: 12-17-2024 Exercises [facility] Start: 12-17-2024 Insertion of catheter into peripheral vein [facility] Start: 12-17-2024 Notification of physician [facility] Start: 12-17-2024 Oxygen therapy [facility] Start: 12-17-2024 Patient referral to dietitian [facility] Start: 12-17-2024 Providing care according to standard [facility] Start: 12-17-2024 Referral to occupational therapist [facility] Start: 12-17-2024 Referral to service [facility] Start: 12-17-2024 Speech therapy assessment [facility] Start: 12-17-2024 Tobacco use cessation education [facility] Start: 12-17-2024 Vital signs measurements [facility] Start: 12-17-2024 End: 12-17-2024 [facility] Start: 12-17-2024 MRI of brain without contrast [facility] Start: 12-17-2024 Verification routine [facility] Start: 12-17-2024 Admission procedure [facility] Start: 12-17-2024 Hospital admission, emergency, from emergency room, medical nature [facility] Start: 12-17-2024 Partial thromboplastin time, activated [facility] Start: 12-17-2024 Prothrombin time [facility] Start: 12-17-2024 Thyroid stimulating hormone measurement [facility] Start: 12-17-2024 Oxygen therapy [facility] Start: 12-17-2024 End: 12-18-2024 [facility] Start: 12-17-2024 End: 03-18-2025 Hemoglobin A1c in Blood HEMOGLOBIN A1C Lab Routine Medication management Expected: 12/17/2024, Expires: 03/18/2025 [facility] Work Phone: Comment on above: Expected: 12/17/2024, Expires: Start: 12-17-2024 End: 03-18-2025 Lipid 1996 panel - Serum or Plasma LIPID PANEL, FASTING Lab Routine Hyperlipidemia Expected: 12/17/2024, Expires: 03/18/2025 [facility] Comment on above: Expected: 12/17/2024, Expires: Start: 12-17-2024 Consultation [facility] Start: 12-16-2024 Referral to service [facility] Start: 12-16-2024 Patient discharge [facility] Start: 12-14-2024 Referral to occupational therapist [facility] Start: 12-14-2024 Referral to service [facility] Start: 12-13-2024 Contact precautions [facility] Start: 12-13-2024 Following clinical pathway protocol [facility] Start: 12-13-2024 Assessment of risk of venous thromboembolism [facility] Start: 12-13-2024 Continuous pulse oximetry [facility] Start: 12-13-2024 Inhalation therapy procedure [facility] Start: 12-13-2024 Insertion of catheter into peripheral vein [facility] Start: 12-13-2024 Introduction of urinary catheter [facility] Start: 12-13-2024 Measuring intake and output [facility] Start: 12-13-2024 Oxygen therapy [facility] Start: 12-13-2024 Providing care according to standard [facility] Start: 12-13-2024 Provision of activity privileges [facility] Start: 12-13-2024 Tobacco use cessation education [facility] Start: 12-13-2024 End: 12-13-2024 [facility] Start: 12-13-2024 Dual pressure spontaneous ventilation support [facility] Start: 12-13-2024 Verification routine [facility] Start: 12-13-2024 Admission procedure [facility] Start: 12-13-2024 Hospital admission, emergency, from emergency room, medical nature [facility] Start: 12-13-2024 [facility] Start: 12-13-2024 Bacteria identified in Blood by Culture Blood Culture [facility] Start: 12-13-2024 Blood culture [facility] Start: 12-13-2024 Respiratory Panel (PCR) Respiratory Panel (PCR) [facility] Start: 12-13-2024 Consultation [facility] Start: 12-13-2024 Patient referral to dietitian [facility] Start: 12-12-2024 End: 03-13-2025 Comprehensive metabolic 2000 panel - Serum or Plasma [facility] Comment on above: Expected: 12/12/2024, Expires: Start: 12-12-2024 End: 03-13-2025 Urinalysis complete panel - Urine [facility] Work Phone: Comment on above: Expected: 12/12/2024, Expires: Start: 12-12-2024 End: 12-12-2024 Patient encounter procedure Internal Med [facility] Comment on above: Discharge from Nursing facility - Follow up Discharge from [facility] facility -see phone note 12/09 Start: 11-20-2024 Annual PCP Team Chronic Disease Visit Annual PCP Team Chronic Disease Visit [facility] Start: 09-03-2024 DIABETES SCREEN DIABETES SCREEN [facility] Start: 09-02-2024 Patient discharge [facility] Start: 09-01-2024 [facility] Start: 08-30-2024 Incentive spirometry [facility] Start: 08-29-2024 Consultation [facility] Start: 08-29-2024 Contact precautions [facility] Start: 08-27-2024 Application of intermittent pneumatic compression device [facility] Start: 08-27-2024 Admission procedure [facility] Start: 08-27-2024 Urine culture Urine Culture [facility] Start: 08-27-2024 [facility] Start: 08-27-2024 Oxygen therapy [facility] Start: 08-25-2024 Following clinical pathway protocol [facility] Start: 08-25-2024 Assessment of risk of venous thromboembolism [facility] Start: 08-25-2024 Inhalation therapy procedure [facility] Start: 08-25-2024 Insertion of catheter into peripheral vein [facility] Start: 08-25-2024 Measuring intake and output [facility] Start: 08-25-2024 Patient referral to dietitian [facility] Start: 08-25-2024 Providing care according to standard [facility] Start: 08-25-2024 Provision of activity privileges [facility] Start: 08-25-2024 Referral to occupational therapist [facility] Start: 08-25-2024 Referral to service [facility] Start: 08-25-2024 [facility] Start: 08-25-2024 Verification routine [facility] Start: 08-25-2024 Hospital admission, emergency, from emergency room, medical nature [facility] Start: 08-25-2024 Admission procedure [facility] Start: 08-25-2024 Enteric precautions [facility] Start: 08-25-2024 End: 08-26-2024 [facility] Start: 08-25-2024 Consultation [facility] Start: 06-19-2024 Advance Directive Discussion Advance Directive Discussion [facility] Start: 06-19-2024 Medicare Advantage Annual Wellness Visit Medicare Advantage Annual Wellness Visit [facility] Start: 06-08-2024 Annual PCP Team Chronic Disease Visit Annual PCP Team Chronic Disease Visit [facility] Start: 06-08-2024 BP Controlled (<130/80) BP Controlled (<130/80) [facility] Start: 2024 RSV Vaccine (1 - 1-dose 75+ series) RSV Vaccine (1 - 1-dose 75+ series) [facility] Start: 03-19-2024 Lipid 1996 panel - Serum or Plasma Lipid Screening [facility] Start: 03-19-2024 Lipid panel Lipid Screening [facility] Start: 03-19-2024 LIPID SCREEN LIPID SCREEN [facility] Start: 02-18-2024 Covid-19 Vaccine ( season) Covid-19 Vaccine () [facility] Start: 02-18-2024 Influenza [facility] Start: 01-02-2024 End: 01-02-2024 Patient encounter procedure [facility] Comment on above: PVD FOLLOW UP Start: 01-01-2024 End: 01-01-2024 Patient encounter procedure 01/01/2024 9:20 AM EDT Office Visit [facility] [place] [address] [place], [place] [id number] Daija Morton MD [address] [place], [place] [id number] 4-6 wk follow up [facility] [place] Comment on above: 4-6 wk follow up Start: 11-21-2023 End: 02-20-2024 CBC W Auto Differential panel - Blood COMPLETE BLOOD COUNT AND DIFFERENTIAL Lab Routine COPD with chronic bronchitis (HCC) Expected: 11/21/2023, Expires: 02/20/2024 [facility] Comment on above: Expected: 11/21/2023, Expires: Start: 11-21-2023 End: 02-20-2024 Comprehensive metabolic 2000 panel - Serum or Plasma COMPREHENSIVE METABOLIC PANEL Lab Routine Mixed hyperlipidemia Expected: 11/21/2023, Expires: 02/20/2024 [facility] Comment on above: Expected: 11/21/2023, Expires: Start: 11-21-2023 End: 02-20-2024 Hemoglobin A1c in Blood HEMOGLOBIN A1C Lab Routine Mixed hyperlipidemia Expected: 11/21/2023, Expires: 02/20/2024 [facility] Work Phone: Comment on above: Expected: 11/21/2023, Expires: Start: 11-21-2023 End: 02-20-2024 Lipid 1996 panel - Serum or Plasma LIPID PANEL BASIC Lab Routine Mixed hyperlipidemia Expected: 11/21/2023, Expires: 02/20/2024 [facility] Comment on above: Expected: 11/21/2023, Expires: Start: 11-21-2023 End: 11-21-2023 Patient encounter procedure [facility] [place] [place] Comment on above: hospital discharge/ retirement fractur e of pelvic hospital discharge/ retirement fracture of pelvic(See phone encounter) Start: 11-21-2023 End: 11-21-2023 Patient encounter procedure 11/21/2023 9:40 AM EDT Office Visit [facility] [place] [address] [place] [address] Rebekah Luu PA-C [address] [place] [address] follow up [facility] / copd [facility] Comment on above: follow up [facility]cfp / copd Start: 08-28-2023 ANNUAL PCP TEAM CHRONIC DISEASE VISIT ANNUAL PCP TEAM CHRONIC DISEASE VISIT [facility] Start: 08-02-2023 Patient discharge [facility] Start: 08-01-2023 Referral to occupational therapist [facility] Start: 08-01-2023 Referral to service [facility] Start: 07-31-2023 Speech therapy assessment [facility] Start: 07-31-2023 Oxygen therapy [facility] Start: 07-31-2023 Respiratory secretion precautions [facility] Start: 07-31-2023 Following clinical pathway protocol [facility] Start: 07-31-2023 Continuous pulse oximetry [facility] Start: 07-31-2023 Physiotherapy of chest [facility] Start: 07-31-2023 Hospital admission, emergency, from emergency room, medical nature [facility] Start: 07-31-2023 Inhalation therapy procedure [facility] Start: 07-30-2023 Dual pressure spontaneous ventilation support [facility] Start: 07-30-2023 Admission procedure [facility] Start: 07-30-2023 [facility] Start: 07-26-2023 Patient discharge [facility] Start: 07-25-2023 Referral to occupational therapist [facility] Start: 07-25-2023 Referral to service [facility] Start: 07-25-2023 Inhalation therapy procedure [facility] Start: 07-24-2023 Following clinical pathway protocol [facility] Start: 07-24-2023 Assessment of risk of venous thromboembolism [facility] Start: 07-24-2023 Insertion of catheter into peripheral vein [facility] Start: 07-24-2023 Oxygen therapy [facility] Start: 07-24-2023 Providing care according to standard [facility] Start: 07-24-2023 Referral to service [facility] Start: 07-24-2023 [facility] Start: 07-24-2023 Verification routine [facility] Start: 07-24-2023 Admission procedure [facility] Start: 07-24-2023 Hospital admission, emergency, from emergency room, medical nature [facility] Start: 07-24-2023 Consultation [facility] Start: 07-24-2023 Consultation [facility] Start: 07-24-2023 Patient referral to dietitian [facility] Start: 06-19-2023 Advance Directive Discussion Advance Directive Discussion [facility] Start: 04-04-2023 Patient discharge [facility] Start: 04-03-2023 Consultation [facility] Start: 04-02-2023 Contact precautions [facility] Start: 03-30-2023 End: 03-30-2023 Following clinical pathway protocol [facility] Start: 03-30-2023 Assessment of risk of venous thromboembolism [facility] Start: 03-30-2023 Catheterization of vein [facility] Start: 03-30-2023 Inhalation therapy procedure [facility] Start: 03-30-2023 Insertion of catheter into peripheral vein [facility] Start: 03-30-2023 Oxygen therapy [facility] Start: 03-30-2023 Providing care according to standard [facility] Start: 03-30-2023 Provision of activity privileges [facility] Start: 03-30-2023 Referral to occupational therapist [facility] Start: 03-30-2023 Referral to service [facility] Start: 03-30-2023 End: 03-30-2023 [facility] Start: 03-30-2023 End: 03-30-2023 Blood culture [facility] Start: 03-30-2023 Verification routine [facility] Start: 03-30-2023 Hospital admission, emergency, from emergency room, medical nature [facility] Start: 03-30-2023 Admission procedure [facility] Start: 03-30-2023 Bacteria identified in Blood by Culture Blood Culture [facility] Start: 03-30-2023 Consultation [facility] Start: 03-30-2023 Inhalation therapy procedure [facility] Start: 03-29-2023 [facility] Start: 03-29-2023 Emergency department visit low/moder severity EMERGENCY DEPT VISIT [facility] Start: 03-10-2023 ANNUAL PCP TEAM CHRONIC DISEASE VISIT ANNUAL PCP TEAM CHRONIC DISEASE VISIT [facility] Start: 02-17-2023 Covid-19 Vaccine () Covid-19 Vaccine () [facility] Start: 02-17-2023 Influenza vaccination [facility] Start: 02-04-2023 ANNUAL PCP TEAM CHRONIC DISEASE VISIT ANNUAL PCP TEAM CHRONIC DISEASE VISIT [facility] Start: 01-28-2023 ANNUAL PCP TEAM CHRONIC DISEASE VISIT ANNUAL PCP TEAM CHRONIC DISEASE VISIT [facility] Start: 01-14-2023 SHINGRIX VACCINE (2 of 3) SHINGRIX VACCINE (2 of 3) [facility] Comment on above: Postponed from 11/19/2020 (Declined at t his time) Start: 01-03-2023 Urine microalbumin profile DTAP,TDAP,TD (2 - Td or Tdap) [facility] Start: 11-17-2022 ANNUAL PCP TEAM CHRONIC DISEASE VISIT ANNUAL PCP TEAM CHRONIC DISEASE VISIT [facility] Start: 10-26-2022 COVID-19 VACCINE (4 - Moderna series) COVID-19 VACCINE (4 - Moderna series) [facility] Start: 10-21-2022 [facility] Start: 10-07-2022 ANNUAL PCP TEAM CHRONIC DISEASE VISIT ANNUAL PCP TEAM CHRONIC DISEASE VISIT [facility] Start: 09-15-2022 ANNUAL PCP TEAM CHRONIC DISEASE VISIT ANNUAL PCP TEAM CHRONIC DISEASE VISIT [facility] Start: 06-19-2022 ADVANCE DIRECTIVE DISCUSSION ADVANCE DIRECTIVE DISCUSSION [facility] Start: 04-02-2022 ANNUAL PCP TEAM CHRONIC DISEASE VISIT ANNUAL PCP TEAM CHRONIC DISEASE VISIT [facility] Start: 03-29-2022 End: 05-29-2022 Hemoglobin A1c in Blood HGB A1C Lab Routine Medication management Expected: 03/29/2022, Expires: 05/29/2022 [facility] Work Phone: Comment on above: Expected: 03/29/2022, Expires: 2 Start: 03-29-2022 End: 05-29-2022 Lipid 1996 panel - Serum or Plasma LIPID PANEL BASIC Lab Routine Hyperlipidemia Expected: 03/29/2022, Expires: 05/29/2022 [facility] Work Phone: Comment on above: Expected: 03/29/2022, Expires: 2 Start: 03-29-2022 End: 05-29-2022 SCHEDULE LAB TESTING SCHEDULE LAB TESTING Lab Routine Expected: 03/29/2022, Expires: 05/29/2022 [facility] Work Phone: Comment on above: Expected: 03/29/2022, Expires: 2 Start: 02-17-2022 Influenza vaccination INFLUENZA (#1) [facility] Start: 01-14-2022 End: 03-16-2022 CBC W Auto Differential panel - Blood [facility] Work Phone: Comment on above: Expected: 01/14/2022, Expires: 2 Start: 11-30-2021 Patient discharge [facility] Work Phone: Start: 11-28-2021 Care planning and problem solving actions [facility] Work Phone: Start: 11-26-2021 Administration of blood product [facility] Work Phone: Start: 11-26-2021 Catheterization of vein [facility] Work Phone: Start: 11-26-2021 Notification of physician [facility] Work Phone: Start: 11-26-2021 Referral to occupational therapist [facility] Work Phone: Start: 11-26-2021 End: 11-26-2021 Referral to service [facility] Work Phone: Start: 11-26-2021 Catheterization of vein [facility] Work Phone: Start: 11-26-2021 Following clinical pathway protocol [facility] Work Phone: Start: 11-26-2021 Inhalation therapy procedure [facility] Work Phone: Start: 11-25-2021 Assessment of risk of venous thromboembolism [facility] Work Phone: Start: 11-25-2021 Insertion of catheter into peripheral vein [facility] Work Phone: Start: 11-25-2021 Measuring intake and output [facility] Work Phone: Start: 11-25-2021 Oxygen therapy [facility] Work Phone: Start: 11-25-2021 Providing care according to standard [facility] Work Phone: Start: 11-25-2021 Provision of activity privileges [facility] Work Phone: Start: 11-25-2021 Referral to gastroenterology service [facility] Work Phone: Start: 11-25-2021 [facility] Work Phone: Start: 11-25-2021 Admission procedure [facility] Work Phone: Start: 11-25-2021 End: 11-25-2021 Administration of blood product [facility] Work Phone: Start: 11-25-2021 Patient referral to dietitian [facility] Work Phone: Start: 10-23-2021 End: 12-23-2021 PT panel - Platelet poor plasma by Coagulation assay PROTHROMBIN TIME/PT Lab Routine Anticoagulation goal of INR 2 to 3 Expected: 10/23/2021, Expires: 12/23/2021 [facility] Work Phone: Comment on above: Expected: 10/23/2021, Expires: Start: 10-19-2021 End: 12-19-2021 Hemoglobin A1c/Hemoglobin.total in Blood HGB A1C Lab Routine Medication management Expected: 10/19/2021, Expires: 12/19/2021 [facility] Work Phone: Comment on above: Expected: 10/19/2021, Expires: 2 Start: 10-19-2021 End: 12-19-2021 LIPID PANEL BASIC LIPID PANEL BASIC Lab Routine Hyperlipidemia Expected: 10/19/2021, Expires: 12/19/2021 [facility] Work Phone: Comment on above: Expected: 10/19/2021, Expires: 2 Start: 10-19-2021 End: 12-19-2021 SCHEDULE LAB TESTING SCHEDULE LAB TESTING Lab Routine Expected: 10/19/2021, Expires: 12/19/2021 [facility] Work Phone: Comment on above: Expected: 10/19/2021, Expires: 2 Start: 10-17-2021 Colonoscopy COLONOSCOPY [facility] Start: 10-17-2021 COLORECTAL CANCER SCREENING COLORECTAL CANCER SCREENING [facility] Start: 09-22-2021 End: 11-22-2021 CBC W Auto Differential panel - Blood CBC + DIFF Lab Routine Anemia, unspecified type Expected: 09/22/2021, Expires: 11/22/2021 [facility] Work Phone: Comment on above: Expected: 09/22/2021, Expires: 2 Start: 09-22-2021 End: 11-22-2021 PT panel - Platelet poor plasma by Coagulation assay PROTHROMBIN TIME/PT Lab Routine Encounter for monitoring Coumadin therapy Expected: 09/22/2021, Expires: 11/22/2021 [facility] Work Phone: Comment on above: Expected: 09/22/2021, Expires: 2 Start: 08-21-2021 Patient discharge [facility] Work Phone: Start: 08-19-2021 Application of intermittent pneumatic compression device [facility] Work Phone: Start: 08-19-2021 Oxygen therapy [facility] Work Phone: Start: 08-19-2021 Tobacco use cessation education [facility] Work Phone: Start: 08-19-2021 [facility] Work Phone: Start: 08-19-2021 Care planning and problem solving actions [facility] Work Phone: Start: 08-19-2021 Administration of blood product [facility] Work Phone: Start: 08-19-2021 Referral to non emergency services ambulance driver [facility] Work Phone: Start: 08-19-2021 [facility] Work Phone: Start: 08-19-2021 Referral to occupational therapist [facility] Work Phone: Start: 08-19-2021 Referral to service [facility] Work Phone: Start: 08-19-2021 Application of intermittent pneumatic compression device [facility] Work Phone: Start: 08-19-2021 Administration of blood product [facility] Work Phone: Start: 08-19-2021 Administration of blood product [facility] Work Phone: Start: 08-19-2021 Inhalation therapy procedure [facility] Work Phone: Start: 08-18-2021 Following clinical pathway protocol [facility] Work Phone: Start: 08-18-2021 Ambulation without limitation [facility] Work Phone: Start: 08-18-2021 Assessment of risk of venous thromboembolism [facility] Work Phone: Start: 08-18-2021 Insertion of catheter into peripheral vein [facility] Work Phone: Start: 08-18-2021 Providing care according to standard [facility] Work Phone: Start: 08-18-2021 [facility] Work Phone: Start: 08-18-2021 Admission procedure [facility] Work Phone: Start: 06-19-2021 ADVANCE DIRECTIVE DISCUSSION ADVANCE DIRECTIVE DISCUSSION [facility] Start: 06-04-2021 Smpl repair scalp/neck/ax/genit/trunk 2.6-7.5cm RPR S/N/AX/GEN/TRNK2.6-7.5C M [facility] Work Phone: Start: 11-19-2020 SHINGRIX VACCINE (2 of 3) SHINGRIX VACCINE (2 of 3) [facility] Start: 11-05-2020 COVID-19 VACCINE (2 - Moderna 3-dose series) COVID-19 VACCINE (2 - Moderna 3-dose series) [facility] Start: 11-05-2020 COVID-19 VACCINE (2 - Moderna series) COVID-19 VACCINE (2 - Moderna series) [facility] Start: 03-19-2020 Hepatitis B surface antibody level LDL CHOLESTEROL [facility] Start: 11-15-2015 FECAL OCCULT BLOOD FECAL OCCULT BLOOD [facility] Start: 11-15-2015 Screening for malignant neoplasm of colon Fecal Occult Blood [facility] Start: 01-17-2014 Medicare Annual Wellness Visit Medicare Annual Wellness Visit [facility] Start: 2009 RSV Vaccine (1 - 1-dose 60+ series) RSV Vaccine (1 - 1-dose 60+ series) [facility] Start: 2009 RSV Vaccine (1 - Risk 60-74 years 1-dose series) RSV Vaccine (1 - Risk 60-74 years 1-dose series) [facility] Start: 1999 Influenza vaccination LUNG CANCER SCREENING [facility] Start: 1999 Screening for malignant neoplasm of lung Lung Cancer Screening [facility] Start: 1999 SHINGRIX VACCINE (1 of 2) SHINGRIX VACCINE (1 of 2) [facility] Start: 1994 COLOGUARD (FIT-DNA) COLOGUARD (FIT-DNA) [facility] Start: [address] COLONOGRAPHY [facility] Start: 1994 Screening for malignant neoplasm of colon [facility] Start: 1994 SIGMOIDOSCOPY SIGMOIDOSCOPY [facility] Start: 1979 Zoledronic acid therapy ALPHA-1 ANTITRYPSIN DEFICIENCY SCREENING [facility] Start: 1967 BP CONTROLLED (<130/80) BP CONTROLLED (<130/80) [facility] inic Bacteria identified in Urine by Culture URINE CULTURE Microbiology Routine Dysuria Ordered: 09/15/2021 [facility] Work Phone: Comment on above: Ordered: 09/15/2021 Bacteria identified in Urine by Culture Urine Culture [facility] Bacteria identified in Urine by Culture URINE CULTURE Microbiology Routine Dysuria 03/23/2024 2:06 PM EDT [facility] Work Phone: Clostridioides diffi cile DNA [Presence] in Unspecified specimen by ALEENA with probe detection [facility] End: 01-28-2023 ECG COMPLETE ECG COMPLETE ECG Routine Essential hypertension Chest pain, unspecified type 1 Occurrences starting 01/28/2022 until 01/28/2023 [facility] Work Phone: Comment on above: 1 Occurrences starting 01/28/2022 until 01/28/2023 Hemoglobin A1c/Hemoglobin.total in Blood [facility] Hemoglobin.gastroint estinal. lower [Presence] in Stool by Immunoassay FECAL OCCULT BLOOD TEST Lab Routine Acute blood loss anemia Angiodysplasia of colon with hemorrhage Ordered: 01/14/2022 [facility] Work Phone: Comment on above: Ordered: 01/14/2022 INR in Blood by Coag ulation assay [facility] Lactic acid measurement [facility] End: 12-05-2022 LUNG DIFFUSION CAPACITY (DLCO) LUNG DIFFUSION CAPACITY (DLCO) PFT Routine COPD with chronic bronchitis (HCC) 1 Occurrences starting 11/05/2021 until 12/05/2022 [facility] Work Phone: Comment on above: 1 Occurrences starting 11/05/2021 until 12/05/2022 End: 01-15-2026 LUNG DIFFUSION CAPACITY (DLCO) LUNG DIFFUSION CAPACITY (DLCO) PFT Routine SOB (shortness of breath) 1 Occurrences starting 12/17/2024 until 01/15/2026 [facility] Comment on above: 1 Occurrences starting 12/17/2024 until 01/15/2026 Nucleic acid assay [facility] Patient Education [facility] Work Phone: Patient referral [facility] Work Phone: End: 06-18-2023 PVR LEG COREY VAS LAB PVR LEG COREY VAS LAB Vascular Lab Routine PVD (peripheral vascular disease) (HCC) 1 Occurrences starting 01/31/2022 until 06/18/2023 [facility] Work Phone: Comment on above: 1 Occurrences starting 01/31/2022 until 06/18/2023 PVR LEG COREY VAS LAB PVR LEG COREY VAS LAB Vascular Lab Routine Peripheral arterial disease (HCC) PVD (peripheral vascular disease) (HCC) 1 Occurrences starting 12/26/2022 [facility] Work Phone: Comment on above: 1 Occurrences starting 12/26/2022 End: 12-05-2022 Radiologic exam chest 2 views XR CHEST 2V FRONTAL/LAT Radiology Routine COPD with chronic bronchitis (HCC) 1 Occurrences starting 11/05/2021 until 12/05/2022 [facility] Work Phone: Comment on above: 1 Occurrences starting 11/05/2021 until 12/05/2022 Respiratory pathogen s DNA and RNA panel - Respiratory specimen by ALEENA with probe detection [facility] End: 01-15-2026 SPIROMETRY WITH DILATOR IF OBSTRUCTED SPIROMETRY WITH DILATOR IF OBSTRUCTED PFT Routine SOB (shortness of breath) 1 Occurrences starting 12/17/2024 until 01/15/2026 [facility] Work Phone: Comment on above: 1 Occurrences starting 12/17/2024 until 01/15/2026 Troponin T.cardiac [Mass/volume] in Serum or Plasma by High sensitivity method [facility] Troponin T.cardiac [Mass/volume] in Serum or Plasma by High sensitivity method [facility] Urinalysis complete panel - Urine URINALYSIS, WITH MICROSCOPIC Lab Routine Dysuria Hematuria, unspecified type Ordered: 09/15/2021 [facility] Work Phone: Comment on above: Ordered: 09/15/2021 Urinalysis complete panel - Urine UA WITH CULTURE IF INDICATED Lab Routine Dysuria Ordered: 09/15/2021 [facility] Work Phone: Comment on above: Ordered: 09/15/2021 End: 01-01-2025 US Lower extremity artery - bilateral PVR LEG COREY VAS LAB Vascular Lab Routine Peripheral arterial disease (HCC) 1 Occurrences starting 01/02/2024 until 01/01/2025 [facility] Work Phone: Comment on above: 1 Occurrences starting 01/02/2024 until 01/01/2025 End: 01-11-2026 XR Chest PA and Lateral XR CHEST 2V FRONTAL/LAT Radiology Routine Wheezing 1 Occurrences starting 12/12/2024 until 01/11/2026 [facility] Comment on above: 1 Occurrences starting 12/12/2024 until 01/11/2026 XR Chest PA and Lateral XR CHEST 2V FRONTAL/LAT Radiology Routine Wheezing 12/12/2024 3:36 PM EDT [facility] Immunizations Immunization Date Immunization Notes Care Provider [facility] 03-31-2023 Influenza High-Dose Quadrivalent Dr. Daija Morton Work Phone: [facility] 03-31-2023 influenza virus vaccine, unspecified formulation Daija Morton MD Work Phone: [facility] 06-04-2021 tetanus toxoid, redu marianna diphtheria toxoid, and acellular pertussis vaccine, adsorbed Dr. Daija Morton Work Phone: [facility] 04-05-2021 influenza, high-dose , quadrivalent vaccine (FLUZONE HIGH DOSE QUADRIVALENT) Lizette Ulloa RN Work Phone: [facility] 04-05-2021 influenza virus vaccine, unspecified formulation Anjel Braga SAP ABAP PROGRAMMER.BOTTLER HELPER Work Phone: [facility] 10-08-2020 COVID-19 vaccine, fu ll dose (MODERNA) Lizette Ulloa RN Work Phone: [facility] 09-24-2020 zoster vaccine, live Harriett B monie SAP ABAP PROGRAMMER.CUT OUT MACHINE OPERATOR Work Phone: [facility] 09-16-2020 influenza, high-dose , quadrivalent vaccine (FLUZONE HIGH DOSE QUADRIVALENT) Respiratory Wstr Work Phone: [facility] Work Phone: 08-09-2020 influenza, injectabl e, quadrivalent, contains preservative Harriett Albert SAP ABAP PROGRAMMER.CUT OUT MACHINE OPERATOR Work Phone: [facility] 08-09-2020 influenza, injectabl e, quadrivalent, preservative free Dr. Daija Morton Work Phone: [facility] 08-09-2020 influenza, seasonal, injectable Dr. Daija Morton Work Phone: [facility] 08-09-2020 influenza, seasonal, injectable, preservative free Harriett Albert SAP ABAP PROGRAMMER.CUT OUT MACHINE OPERATOR Work Phone: [facility] 05-21-2020 influenza, high-dose , quadrivalent vaccine (FLUZONE HIGH DOSE QUADRIVALENT) Lizette Ulloa RN Work Phone: [facility] Work Phone: 07-11-2019 influenza, high dose seasonal, preservative-free Lizette Ulloa RN Work Phone: [facility] Work Phone: 05-18-2018 pneumococcal polysaccharide vaccine, 23 valent Lizette Ulloa RN Work Phone: [facility] 03-14-2018 influenza, high dose seasonal, preservative-free Lizette Ulloa RN Work Phone: [facility] 05-31-2017 influenza, high dose seasonal, preservative-free Lizette Ulloa RN Work Phone: [facility] 06-01-2016 influenza, high dose seasonal, preservative-free Lizette Ulloa RN Work Phone: [facility] Work Phone: 03-23-2016 influenza, injectabl e, quadrivalent, contains preservative Harriett Albert SAP ABAP PROGRAMMER.CUT OUT MACHINE OPERATOR Work Phone: [facility] 03-23-2016 influenza, injectabl e, quadrivalent, preservative free Dr. Daija Morton Work Phone: [facility] 03-23-2016 influenza, seasonal, injectable Dr. Daija Morton Work Phone: [facility] 03-23-2016 influenza, seasonal, injectable, preservative free Lizette Ulloa RN Work Phone: [facility] Work Phone: 07-14-2015 pneumococcal conjuga te vaccine, 13 valent Lizette Ulloa RN Work Phone: [facility] Work Phone: 09-09-2014 influenza, injectabl e, quadrivalent, contains preservative Harriett Albert SAP ABAP PROGRAMMER.CUT OUT MACHINE OPERATOR Work Phone: [facility] 09-09-2014 influenza, injectabl e, quadrivalent, preservative free Dr. Daija Morton Work Phone: [facility] 09-09-2014 influenza, seasonal, injectable Dr. Daija Morton Work Phone: [facility] 09-09-2014 influenza, seasonal, injectable, preservative free Lizette Ulloa RN Work Phone: [facility] Work Phone: 03-25-2013 pneumococcal polysaccharide vaccine, 23 valent Lizette Ulloa RN Work Phone: [facility] Work Phone: 03-25-[address] Nemesio Morton Work Phone: [facility] Work Phone: 03-25-2013 pneumococcal vaccine , unspecified formulation Respiratory Wstr Work Phone: [facility] Work Phone: 03-24-[address] Daija Morton Work Phone: [facility] 03-24-2013 influenza virus vaccine, unspecified formulation Lizette Ulloa RN Work Phone: [facility] Work Phone: 03-24-2013 influenza, seasonal, injectable Harriett Albert SAP ABAP PROGRAMMER.CUT OUT MACHINE OPERATOR Work Phone: [facility] 03-24-2013 influenza, seasonal, injectable, preservative free Lizette Ulloa RN Work Phone: [facility] Work Phone: 01-03-2013 tetanus toxoid, redu marianna diphtheria toxoid, and acellular pertussis vaccine, adsorbed Lizette Ulloa RN Work Phone: [facility] Payers Date Payer Category Payer Unknown [id number] 2024 Medicare (Managed Care) [id number]. [id number] 2024 Medicaid [id number] 2024 Medicare [id number] 2024 Self-pay [id number] 2023 Private Health Insurance [id number] 2022 Unknown [id number] 2021 Medicare [facility] AARP MEDICAR E [facility] MEDICARE HMO [id number] 2021-Present [phone] [address] [address] [place] [address] HMO [id number] 2017 Medicaid [id number] 2017 Medicaid [id number] 2014 Medicare [id number] 2014 Medicare [id number] .[id number] 2014 Medicare [id number] 1949 Unknown [id number] 2.16.840.1.500011.3.579.2.6 27 1949 Unknown [id number] .16.840.1.318334.3.579.2.6 27 Private Health Insurance [facility] [id number] Unknown [id number] Unknown [id number] Unknown [id number] 2.16.840.1.646951.3.579.2.4 62 Unknown [id number] 2.16.840.1.037258.3.579.2.4 62 Unknown [id number] 2.16.840.1.035323.3.579.2.4 62 Unknown [id number] 2.16.840.1.293674.3.579.2.4 62 Unknown [id number] 2.16.840.1.945810.3.579.2.4 62 Unknown [id number] 2.16.840.1.143094.3.579.2.4 62 Unknown [id number] 2.16.840.1.811237.3.579.2.4 62 Unknown [id number] 2.16.840.1.631807.3.579.2.4 62 Unknown [id number] 2.16.840.1.890695.3.579.2.4 62 Unknown [id number] 2.16.840.1.303304.3.579.2.4 62 Unknown [id number] 2.16.840.1.206359.3.579.2.4 62 Unknown [id number] 2.16.840.1.671687.3.579.2.4 62 Unknown [id number] 2.16.840.1.453546.3.579.2.4 62 Unknown [id number] 2.16.840.1.382711.3.579.2.4 62 Unknown [id number] 2.16.840.1.555201.3.579.2.4 62 Unknown [id number] 2.16.840.1.755916.3.579.2.4 62 Unknown [id number] 2.16.840.1.463046.3.579.2.4 62 Unknown [id number] 2.16.840.1.107865.3.579.2.4 62 Unknown [id number] 2.16.840.1.437442.3.579.2.4 62 Unknown [id number] 2.16.840.1.705420.3.579.2.4 62 Unknown [id number] 2.16.840.1.073257.3.579.2.4 62 Unknown [id number] 2.16.840.1.640881.3.579.2.4 62 Unknown [id number] 2.16.840.1.278093.3.579.2.4 62 Unknown [id number] 2.16.840.1.917688.3.579.2.4 62 Unknown [id number] 2.16.840.1.533860.3.579.2.4 62 Unknown [id number] 2.16.840.1.588434.3.579.2.4 62 Unknown [id number] 2.16.840.1.238512.3.579.2.4 62 Unknown [id number] 2.16.840.1.816538.3.579.2.4 62 Unknown [id number] 2.16.840.1.803621.3.579.2.4 62 Unknown [id number] 2.16.840.1.392005.3.579.2.4 62 Unknown [id number] 2.16.840.1.117181.3.579.2.4 62 Unknown [id number] 2.16.840.1.973562.3.579.2.4 62 Unknown [id number] 2.16.840.1.329704.3.579.2.4 62 Unknown [id number] 2.16.840.1.124903.3.579.2.4 62 Unknown [id number] 2.16.840.1.595969.3.579.2.4 62 Unknown [id number] 2.16.840.1.655251.3.579.2.4 62 Unknown [id number] 2.16.840.1.480091.3.579.2.4 62 Unknown [id number] 2.16.840.1.153307.3.579.2.4 62 Unknown [id number] 2.16.840.1.795924.3.579.2.4 62 Unknown [id number] 2.16.840.1.997380.3.579.2.4 62 Unknown [id number] 2.16.840.1.754469.3.579.2.4 62 Unknown [id number] 2.16.840.1.289928.3.579.2.4 62 Unknown [id number] 2.16.840.1.580557.3.579.2.4 62 Unknown [id number] 2.16.840.1.575824.3.579.2.4 62 Social History Date Type Detail Facility Start: 04-10-2020 Tobacco smoking stat us ARIS Ex-smoker [facility] Start: [birth year]19-1964 History of tobacco use Cigarette Smo ker [facility] Start: 04-10-2020 End: 12-26-2022 Cigarettes smoked current (pack per day) - Reported 2 [facility] Start: 04-10-2020 End: 03-23-2024 Tobacco use and exposure Smokeless tobacco non-user [facility] Start: 08-26-2021 End: 12-12-2024 Alcohol intake Current non-drinker of alcohol (finding) [facility] Start: 04-16-2015 History SDOH Alcohol Comment History of alcohol abuse. I cut that out. [facility] Start: 12-17-2019 History SDOH Financial 5 [facility] Start: 12-17-2019 History SDOH Food Worry 2 [facility] Start: 12-17-2019 History SDOH Food Scarcity 1 [facility] Start: 08-22-2019 End: 01-31-2022 Tobacco Comment patient started using patches [facility] Start: 1950 Sex Assigned At Not on file C [facility] Start: 10-12-2020 End: 03-10-2022 Exposure to SARS-CoV-2 (event) Not sure [facility] Start: 06-19-1964 End: 03-23-2024 Tobacco smoking status NHIS Smokes tobacco daily [facility] Start: 09-17-2021 End: 04-02-2023 Tobacco smoking status NHIS Unknown if ever smoked [facility] Start: 01-20-2021 None [facility] Start: 12-16-2019 Prison [facility] Start: 08-09-2020 Cigarettes [facility] Start: 1950 Sex Assigned At Male [facility] Start: 09-14-2021 End: 01-28-2022 Exposure to SARS-CoV-2 (event) Unable to assess [facility] Start: 05-14-2018 Tobacco smoking status Light t obacco smoker (finding) [facility] Sex Assigned At Sex [facility] Start: 12-17-2019 End: 12-26-2022 Tobacco use panel [facility] How hard is it for y ou to pay for the very basics like food, housing, medical care, and heating Not hard at all [facility] (I/We) worried massimo er (my/our) food would run out before (I/we) got money to buy more. Sometimes true [facility] The food that (I/we) bought just didn't last, and (I/we) didn't have money to get more. Never true [facility] Start: 06-19-1964 History of tobacco use Current smoke r [facility] Start: 08-25-2024 End: 08-25-2024 Tobacco smoking status NHIS Current some day smoker [facility] Start: 08-25-2024 End: 09-02-2024 Sex Male (finding) [facility] Medical Equipment Procedure Code Equipment Code Equipment Original Text Equipment Identifier Dates EGD, with monitored anesthesia care [id number] Start: 12-23-2024 Graft Terry 7mm T hin Wall Heparin Propaten Ptfe 80cm 60cm Vascular Removable - [id number] Start: 10-10-2019 Patch Cv 8x.8cm Tapr Vsgrd Bov - [id number] Start: 10-23-2013 Comment on above: Description: Implant ed left femoral artery Patch Vascu-Guar d Taper Bovine Pericardial 8x.8cm Cardiovascular [place] - [id number] Start: 10-08-2019 Stent Palmaz Gen esis Opta Pro Flexsegment 8mm 40mm Large Stainless Steel 80 - [id number] Start: 10-08-2019 Stent Palmaz Gen esis Opta Pro Flexsegment 8mm 40mm Large Stainless Steel 80 - [id number] Start: 10-08-2019 Stent Trchbr 7mm 7fr 38mm 120 - [id number] Start: 10-23-2013 Comment on above: Description: Second stent lot #[id number]. exp. 03/2016 Stent Vasc 8mm 1 5cm 120cm .035 - [id number] Start: 10-23-2013 Comment on above: Description: Implant ed in left iliac artery Stent Trchbr 7mm 7fr 38mm 120 - [id number] Start: 10-23-2013 Stent Corey 10mm 8 0mm 120cm .035 - [id number] Start: 10-23-2013 Comment on above: Description: Implant ed in right iliac artery Stent Corey 10mm 8 0mm 120cm .035 - [id number] Start: 10-23-2013 Comment on above: Description: Implant ed in right iliac artery Stent Icast 8mm Ptfe Stainless Steel 59mm 80cm Tracheobronchial Covered - [id number] Start: 10-08-2019 Stent Icast 8mm Ptfe Stainless Steel 59mm 80cm Tracheobronchial Covered - [id number] Start: 10-08-2019 Goals Date Patient Goal Desired Activity /State Personal health goal Personal health goal Comment on above: Formatting of this n ote might be different from the original. Relief of back pain Comment on above: Formatting of this n ote might be different from the original. Relief of back pain Functional Status Date Assessment Result Facility 12-26-2024 Functional status Stand and pivot [facility] Work Phone: 12-16-2024 Functional status With Assist of 1 [facility] Work Phone: 12-16-2024 Functional status Ambulates;Back to bed [facility] Work Phone: 09-02-2024 Functional status With Assist of 1 [facility] Work Phone: 09-01-2024 Functional status Bathroom Privilege [facility] Work Phone: 08-02-2023 Functional status With Assist of 1 [facility] Work Phone: 08-01-2023 Functional status Bedrest [facility] Work Phone: 07-26-2023 Functional status Chair [facility] Work Phone: 07-26-2023 Functional status Bedrest [facility] Work Phone: 07-25-2023 Functional status None [facility] Work Phone: 04-04-2023 Functional status Up ad chadwick;Bath room Privilege [facility] Work Phone: 10-22-2022 Functional Status Minimum assistance [facility] 10-22-2022 Functional Status Standard Safet y ID band on, Call device within reach, Bed in low position, Wheels locked, Upper/Half-Length side-rails up, Phone within reach, Bedside Cart Locked [facility] 11-30-2021 Functional status Ambulates [facility] Work Phone: 09-29-2021 Functional Status [facility] 09-13-2021 Are you deaf, or do you have serious difficulty hearing No 09/13/2021 4:47 PM Bessy Ovalles, ОЛЕГ No [facility] 09-13-2021 Are you blind, or do you have serious difficulty seeing, even when wearing glasses No 09/13/2021 4:47 PM Bessy Ovalles, ОЛЕГ No [facility] 09-13-2021 Do you have serious difficulty walking or climbing stairs No 09/13/2021 4:47 PM Bessy Ovalles, ОЛЕГ No [facility] 09-13-2021 Do you have difficul ty dressing or bathing No 09/13/2021 4:47 PM Bessy Ovalles, ОЛЕГ No [facility] 09-13-2021 Because of a physica l, mental, or emotional condition, do you have difficulty doing errands alone such as visiting a physician's office or shopping No 09/13/2021 4:47 PM EDT Bessy Nunez, ОЛЕГ No [facility] 08-21-2021 Functional status Ambulates;Emeka r;Bathroom Privilege [facility] Work Phone: 08-21-2021 Functional status Tolerates Activity Well [facility] Work Phone: Mental Status Date Assessment Result Facility 12-26-2024 Cognitive function Voice/Name [facility] Work Phone: 12-17-2024 Cognitive function Voice/Name [facility] Work Phone: 12-16-2024 Cognitive function Voice/Name [facility] Work Phone: 09-02-2024 Cognitive function Voice/Name [facility] Work Phone: 08-25-2024 Cognitive function Level Of Cons ciousness Awake;Alert;Appropriate;Fol lows Commands [facility] Work Phone: 08-02-2023 Cognitive function Voice/Name [facility] Work Phone: 07-26-2023 Cognitive function Person;Place;Time [facility] Work Phone: 07-25-2023 Cognitive function Voice/Name [facility] Work Phone: 04-04-2023 Cognitive function Voice/Name [facility] Work Phone: 02-17-2023 Cognitive function Level Of Cons ciousness Awake;Alert;Appropriate;Fol lows Commands [facility] Work Phone: 12-31-2022 Cognitive function Level Of Cons ciousness Awake;Alert;Appropriate;Fol lows Commands [facility] Work Phone: 10-22-2022 Mental Status Orientation Oriented x 4 [facility] 05-06-2023 Mental Status [facility] 03-07-2022 Cognitive function Level Of Cons ciousness Awake;Alert;Appropriate [facility] Work Phone: 03-02-2022 Cognitive function Level Of Cons ciousness Awake;Alert;Appropriate [facility] Work Phone: 01-28-2022 Cognitive function Level Of Cons ciousness Awake;Alert;Appropriate;Fol lows Commands [facility] Work Phone: 11-30-2021 Cognitive function Voice/Name [facility] Work Phone: 10-08-2021 Cognitive function Level Of Cons ciousness Awake;Alert;Appropriate;Fol lows Commands [facility] Work Phone: 09-29-2021 Mental Status [facility] 09-13-2021 Because of a physica l, mental, or emotional condition, do you have serious difficulty concentrating, remembering, or making decisions No 09/13/2021 4:47 PM EDT Bessy Nunez, ОЛЕГ [facility] 08-21-2021 Cognitive function Voice/Name [facility] Work Phone: 06-12-2021 Cognitive function Level Of Cons ciousness Awake;Alert;Appropriate;Fol lows Commands [facility] Work Phone: Clinical Notes 10-08-2019 to 12-26-2024 Note Date & Type Note Facility 12-26-2024 Discharge summary Note Date/Time December 26, 2024 3:43pm [facility] Medical Records Department [address] [place] [address] Discharge Summary 12/26/24 1533 MR#: [id number] Acct: [id number] Name: PEDRO PABLO SIERRA Rep #:[id number] : 1950 74 From: Shilpa Contreras MD PCP: Dr. Daija Morton MD Status:ADM I N Location: [place] [address] Providers Date of Admission: 12/18/24 Date of Discharge: 12/26/24 Primary Care Physician: Dr. Daija Morton MD Consultations 12/19/24 15:57 Consult: Gastroenterology Routine Consulting Provider: [facility] Reason for Consult: Dysphagia-PEG EMERGENT Consult: No MD Notified: Yes Date Notified: 12/19/24 Time Notified: 15:58 Method of Notification: Text Reason For Visit: STROKELIKE SYMPTOMS Diagnosis Discharge Diagnosis (1) Acute CVA (cerebrovascular accident): Status: Acute Code(s): I63.9 - Cerebral infarction, unspecified Plan: DISCHARGE DIAGNOSES: #1. Acute severe dysarthria and right-sided facial droop secondary to acute left MCA stroke #2. Recent Acute COPD Exacerbation w/ Chronic Hypoxic and Hypercarbic Respiratory Failure #3. Hypertension #4. Chronic Kidney Disease Stage II per GFR trending #5. Chronic normocytic anemia/iron deficient anemia #6. PAF #7. Hyperlipidemia #8. Anxiety and depression #9. BPH with obstructive pathology #10. GERD #11. Seizure disorder #12. 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 PAD #15. Former alcohol abuse #16. CODE status: From previous discussions with patient he had reported lacking healthcare power of consumer attorney and living will but had noted he would wanthis ex- Joseph be his medical decision-maker at that time if absolutely necessary. Full Code status. Medications at Discharge Home Medications atorvastatin 40 mg tablet 40 mg PO QHS Cholesterol 09/23/15 alendronate 70 mg tablet 70 mg PO QWEEK OSTEOPROSIS #1 TAB 11/30/21 clonidine 0.2 mg/24 hr weekly transdermal patch 1 patch topical QWEEK BLOOD PRESSURE 12/13/24 acetaminophen 325 mg tablet 650 mg (2 x 325 mg) feeding tube Q6H PRN PRN Pain 1-10 Or Fever>100.7 #0 tabs 12/24/24 albuterol sulfate 2.5 mg/3 mL (0.083 %) solution for nebulization 2.5 mg (3 mL) inhalation Q4H PRN DYSPNEA/WHEEZING/SOB #0 mL 12/24/24 amlodipine 10 mg tablet 10 mg G-tube DAILY.RT #0 tabs 12/24/24 apixaban 5 mg tablet (Eliquis) 5 mg G-tube BID #0 tabs 12/24/24 carbamazepine 100 mg/5 mL oral suspension 200 mg (10 mL) G-tube 4X/DAY #0 mL 12/24/24 cholecalciferol (vitamin D3) 50 mcg (2,000 unit) tablet 50 mcg feeding tube DAILY SUPPLEMENT 30 days #30 tabs 12/24/24 clonidine 0.2 mg/24 hr weekly transdermal patch 0.2 mg transdermal Q7D #0 ea 12/24/24 ergocalciferol (vitamin D2) 1,250 mcg (50,000 unit) capsule (Vitamin D2) 1,250 mcg feeding tube Q7D SUPPLEMENT #0 caps 12/24/24 finasteride 5 mg tablet 5 mg feeding tube DAILY prostate 30 days #30 tabs 12/24/24 gabapentin 100 mg capsule 100 mg feeding tube DAILY PAIN 30 days #30 caps 12/24/24 ipratropium 0.5 mg-albuterol 3 mg (2.5 mg base)/3 mL nebulization soln 3 ml inhalation .q6hwa #0 mL 12/24/24 lactose-reduced food with fiber 0.06 gram-1.5 kcal/mL oral liquid (Jevity 1.5 Alex) 55 ml feeding tube .18hours #5,688 mL 12/24/24 lansoprazole 15 mg capsule,delayed release 15 mg feeding tube DAILY 30 days #30 caps 12/24/24 losartan 100 mg tablet 100 mg feeding tube DAILY Blood pressure 30 days #30 tabs12/24/24 melatonin 3 mg tablet 3 mg G-tube QHS PRN PRN Insomnia #0 tabs 12/24/24 metoprolol tartrate 25 mg tablet 25 mg feeding tube DAILY Blood pressure 30 days #30 tabs 12/24/24 mirtazapine 15 mg tablet 15 mg feeding tube QHS anti depressant 30 days #30 tabs12/24/24 prednisone 20 mg tablet 40 mg (2 x 20 mg) G-tube BREAKFAST 5 days #10 tabs 12/24/24 sertraline 100 mg tablet 100 mg feeding tube DAILY DEPRESSION 30 days #30 tabs 12/24/24 thiamine HCl (vitamin B1) 100 mg tablet 100 mg G-tube BREAKFAST #0 tabs 12/24/24 hydralazine 25 mg tablet 25 mg G-tube 4X/DAY #0 tabs 12/25/24 Hospital Course Operations None Procedures EKG and Peg tube placement Summary of Care Provided Minutes Spent on Discharge: 35 Hospital Course: The patient is a 74 y/o M w/ PMHx: Former EtOH abuse, PAD s/p peripheral PCI, PAF reporting that he is on chronic Coumadin therapy but verified this was not the case, HTN, HLD, Chronic anemia/Fe deficiency anemia, COPD/Asthma w/ Chronic Hypoxic Respiratory Failure (2L NC), Seizure disorder, CKD stage III unclear subtype or GFR trending, GERD, BPH with obstructive pathology, Anxiety and depression, PJ noncompliant with PAP therapy, Tobacco use, recent discharge 12/16/24 following evaluation and treatment of Acute COPD Exacerbation who re-presentED to the [facility] ED on 12/17/24 w/ severe dysarthria and right-sided facial droop with suspected CVA. Initial ED presentation with CT of the brain with no acute intracranial findings with cerebral atrophy, CTA head and neck with right and left ICA stenosis (right noted 75% stenosis, left noted 50% stenosis), MRI of the brain with focal restricted diffusion left periventricular deep white matter with multiple foci with the largest measuring 1.2 x 0.9 cm with associated increased T2 signal intermediate to decreased T1 signal consistent with subacute infarct, punctate foci restricted diffusion in the left precentralsubcortical region with associated increased T2, decreased T1 signal consistent with subacute infarct, extensive abnormal increased T2 and flair signal throughout the deep white matter confluence in the periventricular regions consistent with chronic ischemic change, 3.1 x 1.5 cm arachnoid cyst in the medial left temporal tip, mucosal thickening of the right maxillary sinus. Patient with persistent ongoing global aphasia, right-sided facial droop unfortunately not extremely cooperative, suspected likely cardioembolic source as underlying PAF not chronically anticoagulated secondary to falls, currently on aspirin therapy but per neurology recommendation will very cautiously initiate Eliquis 5 mg p.o. twice daily following PEG placement which was discussed with gastroenterology given high risk however given fall risk was continue to assess risk and benefit. 12/23/2024 carotid ultrasound with moderate 50 to 69% stenosis of the right extracranial internal carotid and left extracranial internal carotid with patent antegrade vertebrals bilaterally. Refused EEG x 3. Vitamin B12 level normal limit at 774, initially received thiamine IV, transitioned to PEG version 12/24/24. 12/23/24 s/p PEG placement with following transition from KS ASA->eliquis, d/c IV keppra and resume liquid carbamazepine, transition to HTN regimen per PEG, added back statin per PEG. 12/25/2024 added hydralazine per PEG as BP still not within control with improvement but likely will need ongoing adjustment. Patient with recent COPD exacerbation during prior admission, initially during presentation maintained onSolu-Medrol 30 mg IV daily, 12/24/24 transitioned to prednisone 40 mg via PEG w/ planned 5 day burst taper at discharge. 12/26/2024 patient remained clinically appropriate and stable therefore discharged to SNF with planned follow-up with PCP, Neurology and Vascular Surgery. Weight / BMI Weight Weight: 160 lb 14.999 oz Body Mass Index (BMI) 24.5 ABG / Lab / Microbiology Data 12/26/24 06:37 12/26/24 06:37 Laboratory: Laboratory Results - last 24 hr 12/26/24 06:37: WBC 10.2, RBC 4.10 L, Hgb 11.3 L, Hct 35.8 L, MCV 87.3, MCH 27.6, MCHC 31.6 L, RDW Std Deviation 46.5 H, RDW Coeff of Aly 14.7 H, Plt Count 363, MPV 10.1, Immature Gran % (Auto) 0.500, Neut % (Auto) 84.7 H, Lymph % (Auto) 6.5 L, Wayne % (Auto) 7.8, Eos % (Auto) 0.2, Baso % (Auto) 0.3, Absolute Neuts (auto) 8.7 H, Absolute Lymphs (auto) 0.66 L, Nucleated RBC % 0, Sodium 140, Potassium 3.4, Chloride 98, Carbon Dioxide 30.3, Anion Gap 12, BUN 15, Creatinine 1.07, Estim Creat Clear Calc 57.71, Est GFR (MDRD) Non-Af 72, BUN/Creatinine Ratio 14.4, Glucose 142 H, Calcium 9.7, Total Bilirubin 0.23, AST22, ALT 19, Alkaline Phosphatase 67, Total Protein 6.0, Albumin 3.7, Globulin 2.3, Albumin/Globulin Ratio 1.6 Microbiology: Microbiology 12/19/24 10:00 Stool Enteric Bacteriology - Final 12/18/24 13:51 Stool Clostridioides difficile (PCR) - Final D/C Instructions DC O2, CPAP, BIPAP Needs Home O2 Discharge instructions: Yes Type of respiratory needs?: Oxygen Oxygen frequency: Continuous Continuous oxygen liters per minute: 2 DC home with Oxygen: Yes Home O2 MD Review: Patient on chronic oxygen supplementation 2-3 L which will be continued upon transition to SNF. Meaningful Use Info Meaningful Use Meaningful Use Diagnoses (Choose all that apply): Ischemic CVA CVA Therapy Assessed for PT,OT and/or ST?: Yes Ischemic Stroke Antithrombotic order at d/c?: Yes Dx of Atrial fib/flutter?: Yes Anticoagulant at discharge?: Yes Statin Dosing Therapy Reference: STATIN DOSE THERAPY [...] Ezetimibe + Simvastatin 10/80 mg Simvastatin 80mg Statins at discharge?: Yes Primary Dx Acute Ischemic CVA?: Yes IV thrombolytic ordered during stay?: No Reason IV thrombolytic not ordered: Treatment not Indicated Discharge Plan Admission Admit Date/Time: 12/18/24 14:58 Primary Reason for Your Visit: Acute CVA, Severe Dysarthria, Dysphagia Attending Provider: Shilpa Contreras Primary Care Provider: Daija Morton Consulting Providers: Aung Peres; Gogo Gill; Ryan Vargas; Tamika Xiao; Daylin Schmitt; Roman Patel; Chrystal Collier; Luan Mcgraw; Jo Hughes;JOSETTE YANG; Angelo Wiley; Neelam Almendarez; Lisha Talamnates Instructions Additional Instructions / Restrictions: ADDITIONAL DISCHARGE INSTRUCTIONS/INFORMATION: #1. Acute severe dysarthria and right-sided facial droop secondary to acute left MCA stroke: --CT of the brain with no acute intracranial findings with cerebral atrophy. --CTA head and neck with right and left ICA stenosis (right noted 75% stenosis, left noted 50% stenosis) with follow-up 12/23/2024 carotid ultrasound with moderate 50 to 69% stenosis of the right extracranial internal carotid and left extracranial internal carotid with patent antegrade vertebrals bilaterally. Willneed outpatient follow-up with Vascular surgery as requested to monitor and re-evaluate. --MRI of the brain with focal restricted diffusion left periventricular deep white matter with multiple foci with the largest measuring 1.2 x 0.9 cm with associated increased T2 signal intermediate to decreased T1 signal consistent with subacute infarct, punctate foci restricted diffusion in the left precentralsubcortical region with associated increased T2, decreased T1 signal consistent with subacute infarct, extensive abnormal increased T2 and flair signal throughout the deep white matter confluence in the periventricular regions consistent with chronic ischemic change, 3.1 x 1.5 cm arachnoid cyst in the medial left temporal tip, mucosal thickening of the right maxillary sinus. --s/p PEG tube placement on 12/23/24, initiated on tube feeds with nutrition consultation. Recommend continued nutrition consultation and evaluation at the [facility] facility for ongoing assessments and alteration to feedings as needed. --12/24/2024 initiated on Eliquis regimen with de-escalation off aspirin therapy per neurology recommendation with continued liquid carbamazepine, statin therapy, hypertensive regimen with alterations as needed to transition to PEG formulation. --Encouraged continued evaluation and monitoring of blood pressure with adjustment and alteration to regimen to maintain appropriate blood pressure parameters. #2. Recent Acute COPD Exacerbation w/ Chronic Hypoxic and Hypercarbic Respiratory Failure: --Recent presentation with exacerbation, transitioned initially to Solu-Medrol 30 mg IV daily w/ 12/24/24 transitioned to prednisone 40 mg via PEG w/ planned taper at discharge. --Will continue ATC DuoNeb therapy as well as as needed albuterol. --Continue supplemental oxygen currently 2 L nasal cannula which appears recent baseline. Discharge Orders/Prescriptions Prescriptions: New acetaminophen 325 mg Tablet 650 mg feeding tube Q6H PRN PRN (Reason: Pain 1-10 Or Fever>100.7) Qty: 0 0RF ipratropium-albuterol 0.5 mg-3 mg(2.5 mg base)/3 mL Solution For Nebulization 3 ml inhalation .q6hwa Qty: 0 0RF albuterol sulfate 2.5 mg /3 mL (0.083 %) Solution For Nebulization 2.5 mg inhalation Q4H PRN (Reason: DYSPNEA/WHEEZING/SOB) Qty: 0 0RF clonidine 0.2 mg/24 hr Patch Weekly 0.2 mg transdermal Q7D Qty: 0 0RF amlodipine 10 mg Tablet 10 mg G-tube DAILY.RT Qty: 0 0RF carbamazepine 100 mg/5 mL Suspension 200 mg G-tube 4X/DAY Qty: 0 0RF Eliquis 5 mg Tablet 5 mg G-tube BID Qty: 0 0RF melatonin 3 mg Tablet 3 mg G-tube QHS PRN PRN (Reason: Insomnia) Qty: 0 0RF prednisone 20 mg Tablet 40 mg G-tube BREAKFAST 5 Days Qty: 10 0RF thiamine HCl (vitamin B1) 100 mg Tablet 100 mg G-tube BREAKFAST Qty: 0 0RF Jevity 1.5 Alex 0.06 gram-1.5 kcal/mL liquid 55 ml feeding tube .18hours Qty: 5688 0RF Rx Instructions: Goal TF: 55 ml/hr to run for 18 hours/day. Upon SNF transition goal is to achieve this and would plan to increase by 10 ml/hr every 8-12 hours until achieve the goal of 55 ml/hr for the 18 hour run daily. Flush 165 ml free water every 4 hours. lansoprazole 15 mg capsule,delayed release(DR/EC) 15 mg feeding tube DAILY 30 Days Qty: 30 0RF hydralazine 25 mg Tablet 25 mg G-tube 4X/DAY Qty: 0 0RF Continued atorvastatin 40 MG tablet 40 mg PO QHS Patient Comments: CHOLESTEROL alendronate 70 mg tablet 70 mg PO QWEEK Qty: 1 0RF clonidine 0.2 mg/24 hr patch weekly 1 patch topical QWEEK Patient Comments: HAS ONE ON NOW Changed sertraline 100 mg tablet 100 mg feeding tube DAILY 30 Days Qty: 30 0RF mirtazapine 15 MG tablet 15 mg feeding tube QHS 30 Days Qty: 30 0RF gabapentin 100 mg capsule 100 mg feeding tube DAILY 30 Days Qty: 30 0RF ergocalciferol (vitamin D2) [Vitamin D2] 1,250 mcg (50,000 unit) Capsule 1,250 mcg feeding tube Q7D Qty: 0 0RF losartan 100 mg tablet 100 mg feeding tube DAILY 30 Days Qty: 30 0RF finasteride 5 MG tablet 5 mg feeding tube DAILY 30 Days Qty: 30 0RF Patient Comments: prostate metoprolol tartrate 25 mg tablet 25 mg feeding tube DAILY 30 Days Qty: 30 0RF cholecalciferol (vitamin D3) 50 mcg (2,000 unit) tablet 50 mcg feeding tube DAILY 30 Days Qty: 30 0RF Discontinued albuterol sulfate 90 mcg/actuation HFA aerosol inhaler 1 puff inhalation Q8H carbamazepine 200 mg tablet extended release 12 hr 200 mg PO Q12H tamsulosin 0.4 MG capsule 0.4 mg PO QHS Patient Comments: Prostate and urine clopidogrel 75 MG tablet 75 mg PO DAILY pantoprazole 40 mg tablet,delayed release (DR/EC) 40 mg PO DAILY nifedipine 90 mg tablet extended release 90 mg PO DAILY sennosides-docusate sodium [Stool Softener-Stimulant Laxat] 8.6-50 mg Tablet 2 tab PO BID PRN PRN (Reason: Constipation) Qty: 0 0RF albuterol sulfate 2.5 mg /3 mL (0.083 %) solution for nebulization 2.5 mg continuous nebulization DAILY Patient Comments: [NO ORIGINAL SIG] acetaminophen 500 mg Tablet 1,000 mg PO Q8 PRN (Reason: fever or pain) prednisone 10 mg tablet 10 mg PO DAILY Qty: 40 0RF Rx Instructions: 4 tablets x 4 days, 3 tablets x 4 days, 2 tablets x 4 days, 1 tablet x 4 days nicotine [Nicoderm CQ] 21 mg/24 hr patch 24 hour 1 patch transdermal DAILY Qty: 14 0RF clonidine HCl 0.1 mg Tablet 0.1 [...] Daija Morton MD [Primary Care Provider] - (Follow-up within 1-2 weeks following discharge to review admission.) Raul Jensen MD [Med Staff - Active Staff] - (Follow-up in 2-4 weeks for evaluation notable carotid disease to continue to monitor.) Korey Gibbs MD [Non-Staff -Ordering Privileges] - (Follow-up with Neurology, may see JTAC within 2-4 weeks of discharge.) Disposition Disposition (needs filled in before D/C Order can be placed): Residential Facility Charges/Coding Visit Charges Inpatient E&M: 75497 Disch Hosp >30min 12/26/24 1543 <Electronically signed by Shilpa Contreras MD> Cosigner Signature (if applicable): CC: Dr. Shilpa Contreras MD; Dr. Daija Morton MD~ Signed [facility] Work Phone: [phone] 147-192007-10-2025 [facility]07-10-2025 Telephone encounter Note* Telephone Encounter - Anjel Braga APRN.CNP - 12/26/2024 3:13 PM EDT Admitted to hospital. Will review further at follow up. Anjel Braga APRN.CNP [facility]07-10-2025 Miscellaneous Notes* Telephone Encounter - Anjel Braga APRN.CNP - 12/26/2024 3:13 PM EDT Admitted to hospital. Will review further at follow up. Anjel Braga APRN.CNP [facility] Progress note Author Shilpa Contreras [facility] Note Date/Time December 26, 2024 12:3 1pm [facility] Medical Records Department [address] [place] [address] Progress Note - Hospitalist 12/26/24 0700 MR#: [id number] Acct: [id number] Name: PEDRO PABLO SIERRA Rep #:[id number] : 1950 74 From: Shilpa Contreras MD PCP: Dr. Daija Morton MD Status:ADM I N Location: [place] [address] Reason for Visit Reason for Visit: Diagnoses Cerebral infarction, unspecified (12/18/24) Facial weakness (12/18/24) Aphasia (12/18/24) Subjective Subjective Patient with no acute events overnight per nursing report. Blood pressure has vacillated but improved with initiation of low-dose hydralazine per PEG. Given continued clinical stability and at this point only awaiting [facility] facility discussed with nursing staff and patient de-escalated off of telemetry monitoring. Patient without any evidence of fevers, chills, nausea, emesis, abdominal pain, chest pain or dyspnea but patient is unable to give ROS himself given his severe global aphasia. Objective Data Objective Data Vital Signs: Vital Signs Temp Pulse Resp BP Pulse Ox O2 Del Method O2 Flow Rate 97.6 F L 78 18 160/63 H 94 Nasal Cannula 3 12/26/24 04:08 12/26/24 06:26 12/26/24 06:26 12/26/24 04:08 12/26/24 06:26 12/26/24 06:26 12/26/24 06:26 Oxygen Flow Rate (L/min) 3 Oxygen Delivery Method Nasal Cannula Weight: 160 lb 14.999 oz Body Mass Index (BMI) 24.5 Intake & Output: Intake and Output for Last 24 Hours 12/24/24 12/25/24 12/26/24 23:59 23:59 23:59 Intake Total 848.33 / 848.33 1544.00 / 1544.00 Output Total 500 / 500 3450 / 3450 Balance 348.33 / 348.33 -1906.00 / -1906.00 Lab / Micro Data 12/26/24 06:37 12/26/24 06:37 Labs: Laboratory Results - last 24 hr 12/25/24 05:20: Phosphorus 2.0 L Micro: Microbiology 12/19/24 10:00 Stool Enteric Bacteriology - Final 12/18/24 13:51 Stool Clostridioides difficile (PCR) - Final Physical Exam Narrative Physical Examination: General: Awake, appears alert but not answering any orientation questions, extremely aphasic, seated upright in the PCU bedside chair, no obvious acute distress. Skin: Normal color, normal turgor, no icterus, no cyanosis except occasional stage ecchymoses, abrasions. HEENT: AT/NC, EOMI, chronic significant right pupil dilation, more pinpoint leftpupil left-sided facial droop, continued mildly dry MM, persistent left facial droop, mild tongue deviation to the right. Lungs: Diminished, greater bases, appropriate effort, no rales, ronchi or wheezing. Heart: Regular rate and rhythm; no gallop, rub audible. Abdomen: Soft, NTTP, ND, normal BS, PEG tube in place with ongoing tube feeds atthis time noted to be at goal 55 cc/h. Extremities: No cyanosis, no clubbing, no significant distal edema. Neurological: Awake, appears alert but not answering any orientation questions, extremely aphasic, cognitive function certainly decreased from previous baselineduring previous admission, cranial nerves difficult to assess given command willingness, at this point as noted evidence of persistent left facial droop, mild tongue deviation to the right, chronic pupillary changes as noted, global aphasia, intermittently moving extremities been ongoing any commands, strength difficult to assess is not following commands. Psychiatric: Affect appears flat, no acute evidence of depressive or anxiety feelings. Assessment & Plan Assessment/Plan (1) Acute CVA (cerebrovascular accident): PLAN: Plan The patient is a 74 y/o M w/ PMHx: Former EtOH abuse, PAD s/p peripheral PCI, PAF reporting that he is on chronic Coumadin therapy but verified this was not the case, HTN, HLD, Chronic anemia/Fe deficiency anemia, COPD/Asthma w/ Chronic Hypoxic Respiratory Failure (2L NC), Seizure disorder, CKD stage III unclear subtype or GFR trending, GERD, BPH with obstructive pathology, Anxiety and depression, PJ noncompliant with PAP therapy, Tobacco use, recent discharge 12/16/24 following evaluation and treatment of Acute COPD Exacerbation who re-presents to the [facility] ED on 12/17/24 w/ severe dysarthria and right-sided facial droop with suspected CVA. #1. Acute severe dysarthria and right-sided facial droop secondary to acute left MCA stroke: Initial ED presentation with CT of the brain with no acute intracranial findings with cerebral atrophy, CTA head and neck with right and left ICA stenosis (right noted 75% stenosis, left noted 50% stenosis), MRI of the brain with focal restricted diffusion left periventricular deep white matterwith multiple foci with the largest measuring 1.2 x 0.9 cm with associated increased T2 signal intermediate to decreased T1 signal consistent with subacuteinfarct, punctate foci restricted diffusion in the left precentral subcortical region with associated increased T2, decreased T1 signal consistent with subacute infarct, extensive abnormal increased T2 and flair signal throughout the deep white matter confluence in the periventricular regions consistent with chronic ischemic change, 3.1 x 1.5 cm arachnoid cyst in the medial left temporaltip, mucosal thickening of the right maxillary sinus. Patient with persistent ongoing global aphasia, right-sided facial droop unfortunately not extremely cooperative, suspected likely cardioembolic source as underlying PAF not chronically anticoagulated secondary to falls, currently on aspirin therapy but per neurology recommendation will very cautiously initiate Eliquis 5 mg p.o. twice daily following PEG placement which was discussed with gastroenterology given high risk however given fall risk was continue to assess risk and benefit.12/23/2024 carotid ultrasound with moderate 50 to 69% stenosis of the right extracranial internal carotid and left extracranial internal carotid with patentantegrade vertebrals bilaterally. Refused EEG x 3. Vitamin B12 level normal limit at 774, initially received thiamine IV, transitioned to PEG version 12/24/24. 12/23/24 s/p PEG placement with following transition from KS ASA->eliquis,d/c IV keppra and resume liquid carbamazepine, transition to HTN regimen per PEG, added back statin per PEG. 12/25/2024 added hydralazine per PEG as BP still not within control with improvement but likely will need ongoing adjustment. Will plan for outpatient neurology/vascular surgery follow-up. 12/26/2024 patient again remains clinically appropriate and stable therefore will de-escalate off telemetry as only awaiting precertification for skilled placement. #2. Recent Acute COPD Exacerbation w/ Chronic Hypoxic and Hypercarbic Respiratory Failure: Recent presentation with exacerbation, currently maintainedon Solu- Medrol 30 mg IV daily, 12/24/24 transitioned to prednisone 40 mg via PEG w/ planned 5 day burst taper at discharge. 12/24/24 changed from IV PPI to PEG lansoprazole. Continued on TC DuoNeb therapy as well as as needed albuterol. Continue supplemental oxygen currently 2 L nasal cannula which appears recent baseline. #3. Hypertension: 12/24/24 transitioned from IV labetalol, hydralazine, enalapril, clonidine patch given s/p PEG to metoprolol, losartan, nifedipine from XL- >norvasc, continued clonidine patch, 12/25/2024 added additionally lower dose hydralazine 4 times daily via PEG given BP not at control and likely suspect will need further adjustments over time, as needed IV hydralazine. #4. Chronic Kidney Disease Stage II per GFR trending: Admission BUN/creatinine 22/1.10, GFR 70, baseline renal function 1.1-1.2, 12/26/2024 BUN/creatinine 15/1.07, GFR 72, stable, continue to trend. #5. Chronic normocytic anemia/iron deficient anemia: Admission hemoglobin 12.4,MCV 89, baseline hemoglobin noted to vacillate however does range 11-12, 12/26/2024 hemoglobin 11.3, MCV 87.3, stable, continue to trend #6. PAF: 12/24/24 restarted BB and initiated eliquis via PEG. #7. Hyperlipidemia: 12/24/24 restarted statin via PEG. #8. Anxiety and depression: 12/24/24 restarted sertraline and mirtazapine regimenvia PEG. #9. BPH with obstructive pathology: 12/24/24 restarted finasteride via PEG. Unable to use flomax with PEG. #10. GERD: 12/24/24 transition to PPI per PEG also. #11. Seizure disorder: 12/24/24 transitioned liquid carbamazepine with dose now, d/c IV Keppra. #12. Tobacco Abuse: Patient extremely aphasic at this point, encouraged tobaccocessation. #13. PJ: Noncompliant with PAP therapy but at this point given concern for aspiration potential would defer. #14. PAD: 12/24/24 transitioned from rectal aspirin to Eliquis therapy status post PEG placement, transition from IV hypertensive and topical hypertensive regimen to oral regimen, restarted statin. #15. Former alcohol abuse: Encourage continued sobriety. #16. DVT prophylaxis: Continued on Eliquis per PEG. #17. CODE status: From previous discussions with patient he had reported lacking healthcare power of consumer attorney and living will but had noted he would wanthis ex- Joseph be his medical decision-maker at that time if absolutely necessary. Full Code status. Charges/Coding Visit Charges Inpatient E&M: 14312 Subs Hosp L2 NIHSS NIHSS Nursing Documentation NIHSS Nursing Documentation: NIHSS: Ischemic Stroke/TIA Start: 12/17/24 18:52 Text: For PCU Patients: NIH and Neuro Check every 4 Status: Complete hours, PRN and with change in RN caregiver. Freq: Q12 Protocol: Activity Type Activity Date Activity User E-sign Co-sign Detail Recorded Client Recorded Date Recorded By Document 12/22/24 08:15 DS [id number] 12/22/24 08:19 DS 12/22/24 08:15 NIH Stroke Scale [NIHSS] A score of 0 is normal or asymptomatic . Total possible score is 42. Inpatient: RN or Physician to activate a stroke alert for onset of new stroke symptoms or with NIHSS increase >/= 3 points. Following change in neurological status, NIHSS will be performed per physician order or more frequently PRN. -1a. Level of Consciousness 0 - Alert; keenly responsive -1b. LOC Questions 2 - Answers NEITHER question correctly -1c. LOC Commands 0 - Performs BOTH tasks correctly -2. Best Gaze 0 - Normal -3. Visual 0 - No visual loss -4. Facial Palsy 1 - Minor paralysis ( flattened nasolabial fold , asymmetry on smiling) -5a. Left Arm 0 - No drift; arm holds 90 ( or 45) degrees for full 10 seconds -5b. Right Arm 2 - Some effort against gravity; -6a. Left Leg 0 - No drift; leg holds 30- degree position for full 5 seconds -6b. Right Leg 2 - Some effort against gravity; -7. Limb Ataxia 0 - Absent -8. Sensory 0 - Normal; no sensory loss -9. Best Language 3 - Mute, global aphasia; -10. Dysarthria 2 - Severe dysarthria; -11. Extinction and Inattention 0 - No abnormality -Total 12 Query Text:A score of 0 is normal or asymptomatic. Total possible score is 42 . ED: Notify Physician for NIHSS increase by > / = 3 points. Inpatient: RN or Physician to activate a stroke alert for NIHSS increase of > / = 3 points. Coma Scale [Assess] -Eye Opening Spontaneous -Motor Obeys Commands -Verbal Incomprehensibl e [Total] -Coma Scale Total 12 12/26/24 1231 <Electronically signed by Shilpa Contreras MD> Cosigner Signature (if applicable): CC: ~ Signed [facility] Work Phone: [phone] 561-461007-09-2025 Progress note Author Shilpa Contreras [facility] Note Date/Time December 25, 2024 1:49p m [facility] Medical Records Department [address] [place] [address] Progress Note - Hospitalist 12/25/24 0652 MR#: [id number] Acct: [id number] Name: PEDRO PABLO SIERRA Rep #:[id number] : 1950 74 From: Shilpa Contreras MD PCP: Dr. Daija Morton MD Status:ADM I N Location: [place] [address] Reason for Visit Reason for Visit: Diagnoses Cerebral infarction, unspecified (12/18/24) Facial weakness (12/18/24) Aphasia (12/18/24) Subjective Subjective Patient with no acute events overnight per nursing report. Patient remains globally aphasic and is not interactive. His blood pressure was increased abovegoal therefore hydralazine regimen per PEG tube added this morning. Patient is still awaiting nursing facility bed transition clearance. Patient currently tolerating tube feeds up to 30 cc/h with continued slow increase to goal. Patient is unable to perform ROS questioning. Objective Data Objective Data Vital Signs: Vital Signs Temp Pulse Resp BP Pulse Ox O2 Del Method O2 Flow Rate 97.1 F L 77 18 175/55 H 95 Nasal Cannula 2 12/25/24 05:23 12/25/24 05:23 12/25/24 05:23 12/25/24 05:23 12/25/24 05:23 12/25/24 05:23 12/25/24 05:23 Oxygen Flow Rate (L/min) 2 Oxygen Delivery Method Nasal Cannula Weight: 160 lb 14.999 oz Body Mass Index (BMI) 24.5 Intake & Output: Intake and Output for Last 24 Hours 12/23/24 12/24/24 12/25/24 23:59 23:59 23:59 Intake Total 2064.00 / 2064.00 848.33 / 848.33 161.67 / 161.67 Output Total 878 / 878 500 / 500 1200 / 1200 Balance 1186.00 / 1186.00 348.33 / 348.33 -1038.33 / -1038.33 Lab / Micro Data 12/25/24 05:20 12/25/24 05:20 Labs: Laboratory Results - last 24 hr 12/25/24 05:20: WBC 12.0 H, RBC 4.57 L, Hgb 12.5 L, Hct 40.5, MCV 88.6, MCH 27.4, MCHC 30.9 L, RDW Std Deviation 45.9 H, RDW Coeff of Aly 14.5, Plt Count 449, MPV 10.2, Immature Gran % (Auto) 0.700, Neut % (Auto) 82.3 H, Lymph % (Auto) 8.0 L, Wayne % (Auto) 8.4, Eos % (Auto) 0.3, Baso % (Auto) 0.3, Absolute Neuts (auto) 9.8 H, Absolute Lymphs (auto) 0.96, Nucleated RBC % 0, Sodium 141, Potassium 3.3, Chloride 101, Carbon Dioxide 27.5, Anion Gap 12, BUN 14, Creatinine 1.05, Estim Creat Clear Calc 58.81, Est GFR (MDRD) Non-Af 74, BUN/Creatinine Ratio 13.4, Glucose 118 H, Calcium 9.5, Magnesium 2.3 H, Total Bilirubin 0.23, AST 31, ALT 22, Alkaline Phosphatase 74, Total Protein 6.7, Albumin 4.0, Globulin 2.7, Albumin/Globulin Ratio 1.5 Micro: Microbiology 12/19/24 10:00 Stool Enteric Bacteriology - Final 12/18/24 13:51 Stool Clostridioides difficile (PCR) - Final Physical Exam Narrative Physical Examination: General: Awake, appears alert but not answering any orientation questions, extremely aphasic, seated upright in the PCU bed, no obvious distress. Skin: Normal color, normal turgor, no icterus, no cyanosis except occasional stage ecchymoses, abrasions. HEENT: AT/NC, EOMI, chronic significant right pupil dilation, more pinpoint leftpupil left-sided facial droop, continued mildly dry MM, persistent left facial droop, mild tongue deviation to the right. Lungs: Diminished, greater bases, appropriate effort, no rales, ronchi or wheezing. Heart: Regular rate and rhythm; no gallop, rub audible. Abdomen: Soft, NTTP, ND, mildly hyperactive BS, PEG tube in place with ongoing tube feeds at this time noted to be at 30 cc/h. Extremities: No cyanosis, no clubbing, no significant distal edema. Neurological: Awake, appears alert but not answering any orientation questions, extremely aphasic, cognitive function certainly decreased from previous baselineduring previous admission, cranial nerves difficult to assess given command willingness, at this point as noted evidence of persistent left facial droop, mild tongue deviation to the right, chronic pupillary changes as noted, global aphasia, intermittently moving extremities been ongoing any commands, strength difficult to assess is not following commands. Psychiatric: Affect appears flat, no acute evidence of depressive or anxiety feelings. Assessment & Plan Assessment/Plan (1) Acute CVA (cerebrovascular accident): PLAN: Plan The patient is a 74 y/o M w/ PMHx: Former EtOH abuse, PAD s/p peripheral PCI, PAF reporting that he is on chronic Coumadin therapy but verified this was not the case, HTN, HLD, Chronic anemia/Fe deficiency anemia, COPD/Asthma w/ Chronic Hypoxic Respiratory Failure (2L NC), Seizure disorder, CKD stage III unclear subtype or GFR trending, GERD, BPH with obstructive pathology, Anxiety and depression, PJ noncompliant with PAP therapy, Tobacco use, recent discharge 12/16/24 following evaluation and treatment of Acute COPD Exacerbation who re-presents to the [facility] ED on 12/17/24 w/ severe dysarthria and right-sided facial droop with suspected CVA. #1. Acute severe dysarthria and right-sided facial droop secondary to acute left MCA stroke: Initial ED presentation with CT of the brain with no acute intracranial findings with cerebral atrophy, CTA head and neck with right and left ICA stenosis (right noted 75% stenosis, left noted 50% stenosis), MRI of the brain with focal restricted diffusion left periventricular deep white matterwith multiple foci with the largest measuring 1.2 x 0.9 cm with associated increased T2 signal intermediate to decreased T1 signal consistent with subacuteinfarct, punctate foci restricted diffusion in the left precentral subcortical region with associated increased T2, decreased T1 signal consistent with subacute infarct, extensive abnormal increased T2 and flair signal throughout the deep white matter confluence in the periventricular regions consistent with chronic ischemic change, 3.1 x 1.5 cm arachnoid cyst in the medial left temporaltip, mucosal thickening of the right maxillary sinus. Patient with persistent ongoing global aphasia, right-sided facial droop unfortunately not extremely cooperative, suspected likely cardioembolic source as underlying PAF not chronically anticoagulated secondary to falls, currently on aspirin therapy but per neurology recommendation will very cautiously initiate Eliquis 5 mg p.o. twice daily following PEG placement which was discussed with gastroenterology given high risk however given fall risk was continue to assess risk and benefit.12/23/2024 carotid ultrasound with moderate 50 to 69% stenosis of the right extracranial internal carotid and left extracranial internal carotid with patentantegrade vertebrals bilaterally. Refused EEG x 3. Vitamin B12 level normal limit at 774, initially received thiamine IV, transitioned to PEG version 12/24/24. 12/23/24 s/p PEG placement with following transition from KS ASA->eliquis,d/c IV keppra and resume liquid carbamazepine, transition to HTN regimen per PEG, added back statin per PEG. 12/25/2024 added hydralazine per PEG as BP still not within control but this may need to continue to be adjusted and evaluated onoutpatient basis to at skilled facility. Patient will need follow-up with neurology for stroke follow-up as well as vascular Surgery given carotid disease. 12/25/2024 still awaiting certification for transition to skilled facility #2. Recent Acute COPD Exacerbation w/ Chronic Hypoxic and Hypercarbic Respiratory Failure: Recent presentation with exacerbation, currently maintainedon Solu- Medrol 30 mg IV daily, 12/24/24 transitioned to prednisone 40 mg via PEG w/ planned 5 day burst taper at discharge. 12/24/24 change from IV PPI to PEG lansoprazole. Will continue ATC DuoNeb therapy as well as as needed albuterol. Continue supplemental oxygen currently 2 L nasal cannula which appears recent baseline. #3. Hypertension: 12/24/24 transitioned from IV labetalol, hydralazine, enalapril, clonidine patch given s/p PEG to metoprolol, losartan, nifedipine from XL- >norvasc, continued clonidine patch, 12/25/2024 added additionally lower dose hydralazine 4 times daily via PEG given BP not at control and likely suspect will need further adjustments over time, as needed IV hydralazine. #4. Chronic Kidney Disease Stage II per GFR trending: Admission BUN/creatinine 22/1.10, GFR 70, baseline renal function 1.1-1.2, 12/25/2024 BUN/creatinine 1 14/1.05, GFR 74, stable, continue to trend. #5. Chronic normocytic anemia/iron deficient anemia: Admission hemoglobin 12.4,MCV 89, baseline hemoglobin noted to vacillate however does range 11-12, 12/25/2024 hemoglobin 12.5, MCV 88.6, stable, continue to trend #6. PAF: 12/24/24 restarted BB and initiated eliquis via PEG. #7. Hyperlipidemia: 12/24/24 restarted statin via PEG. #8. Anxiety and depression: 12/24/24 restarted sertraline and mirtazapine regimenvia PEG. #9. BPH with obstructive pathology: 12/24/24 restarted finasteride via PEG. Unable to use flomax with PEG. #10. GERD: 12/24/24 transition to PPI per PEG also. #11. Seizure disorder: 12/24/24 transitioned liquid carbamazepine with dose now, d/c IV Keppra. #12. Tobacco Abuse: Patient extremely aphasic at this point, encouraged tobaccocessation. #13. PJ: Noncompliant with PAP therapy but at this point given concern for aspiration potential would defer. #14. PAD: 12/24/24 transitioned from rectal aspirin to Eliquis therapy status post PEG placement, transition from IV hypertensive and topical hypertensive regimen to oral regimen, restarted statin. #15. Former alcohol abuse: Encourage continued sobriety. #16. DVT prophylaxis: Continued on Eliquis per PEG. #17. CODE status: From previous discussions with patient he had reported lacking healthcare power of consumer attorney and living will but had noted he would wanthis ex- Joseph be his medical decision-maker at that time if absolutely necessary. Full Code status. Charges/Coding Visit Charges Inpatient E&M: 11275 Subs Hosp L2 NIHSS NIHSS Nursing Documentation NIHSS Nursing Documentation: NIHSS: Ischemic Stroke/TIA Start: 12/17/24 18:52 Text: For PCU Patients: NIH and Neuro Check every 4 Status: Complete hours, PRN and with change in RN caregiver. Freq: Q12 Protocol: Activity Type Activity Date Activity User E-sign Co-sign Detail Recorded Client Recorded Date Recorded By Document 12/22/24 08:15 DS [id number] 12/22/24 08:19 DS 12/22/24 08:15 NIH Stroke Scale [NIHSS] A score of 0 is normal or asymptomatic . Total possible score is 42. Inpatient: RN or Physician to activate a stroke alert for onset of new stroke symptoms or with NIHSS increase >/= 3 points. Following change in neurological status, NIHSS will be performed per physician order or more frequently PRN. -1a. Level of Consciousness 0 - Alert; keenly responsive -1b. LOC Questions 2 - Answers NEITHER question correctly -1c. LOC Commands 0 - Performs BOTH tasks correctly -2. Best Gaze 0 - Normal -3. Visual 0 - No visual loss -4. Facial Palsy 1 - Minor paralysis ( flattened nasolabial fold , asymmetry on smiling) -5a. Left Arm 0 - No drift; arm holds 90 ( or 45) degrees for full 10 seconds -5b. Right Arm 2 - Some effort against gravity; -6a. Left Leg 0 - No drift; leg holds 30- degree position for full 5 seconds -6b. Right Leg 2 - Some effort against gravity; -7. Limb Ataxia 0 - Absent -8. Sensory 0 - Normal; no sensory loss -9. Best Language 3 - Mute, global aphasia; -10. Dysarthria 2 - Severe dysarthria; -11. Extinction and Inattention 0 - No abnormality -Total 12 Query Text:A score of 0 is normal or asymptomatic. Total possible score is 42 . ED: Notify Physician for NIHSS increase by > / = 3 points. Inpatient: RN or Physician to activate a stroke alert for NIHSS increase of > / = 3 points. Coma Scale [Assess] -Eye Opening Spontaneous -Motor Obeys Commands -Verbal Incomprehensibl e [Total] -Coma Scale Total 12 12/25/24 1349 <Electronically signed by Shilpa Contreras MD> Cosigner Signature (if applicable): CC: ~ Signed [facility] Work Phone: [phone]) 423-290407-08-2025 Progress note Author Paulino Henderson [facility] Note Date/Time December 24, 2024 5:58p m [facility] Medical Records Department [address] [place] [address] Progress Note 12/24/241754 MR#: [id number] Acct: [id number] Name: PEDRO PABLO SIERRA Rep #:[id number] : 1950 74 From: Paulino Henderson DO PCP: Dr. Daija Ganta, MD Status:ADM I N Location: PCU [id number] Progress Note Patient is still tolerating PEG feeds without any problems. He was started backon anti-coagulation. Physical Exam Narrative Physical Examination: General: Awake, appears alert but not answering any orientation questions, extremely aphasic, seated upright in the PCU bed today. Skin: Normal color, normal turgor, no icterus, no cyanosis except occasional stage ecchymoses, abrasions. HEENT: AT/NC, EOMI, chronic significant right pupil dilation, more pinpoint leftpupil left-sided facial droop, mildly dry MM, persistent left facial droop, mildtongue deviation to the right. Lungs: Diminished, greater bases, appropriate effort, no rales, ronchi or wheezing. Heart: Regular rate and rhythm; no gallop, rub audible. Abdomen: Soft, NTTP, ND, mildly hyperactive BS, status post PEG tube placement. Extremities: No cyanosis, no clubbing, no significant distal edema. Neurological: Awake, appears alert but not answering any orientation questions, extremely aphasic, cognitive function certainly decreased from previous baselineduring previous admission, cranial nerves difficult to assess given command willingness, at this point as noted evidence of persistent left facial droop, mild tongue deviation to the right, chronic pupillary changes as noted, global aphasia, intermittently moving extremities been ongoing any commands, strength difficult to assess is not following commands. Psychiatric: Affect appears currently very flat, no acute evidence of depressiveor anxiety feelings. Assessment & Plan Assessment/Plan (1) Acute CVA (cerebrovascular accident): (2) Facial droop: (3) Aphasia: PLAN: Plan 71-year-old with an acute left MCA stroke with severe esophageal dysphagia. He is status post PEG tube. He is okay for antiplatelet and anticoagulation therapy. Visit Charges Inpatient E&M: 98511 Subs Hosp L2 12/24/24 6249 <Electronically signed by Paulino Henderson DO> Paulino Henderson DO Cosigner Signature (if applicable): CC: ~ Signed [facility] Work Phone: [phone] Discharge summary Author Shilpa Contreras [facility] Note Date/Time December 24, 2024 5:11p m [facility] Medical Records Department [address] [place] [address] [place] [address] Transfer to Extended Care MR#: [id number] Acct: [id number] Name: PEDRO PABLO SIERRA Rep #:[id number] : 1950 74 From: Shilpa Contreras MD PCP: Dr. Daija Morton MD Status:ADM I N Certification of patient admission REQUIRED AT TIME OF ADMISSION. I CERTIFY THAT POST-HOSPITAL ECF SERVICES ARE REQUIRED TO BE GIVEN ON AN IN-PATIENT BASIS BECAUSE OF THE ABOVE NAMED PATIENT'S NEED FOR CUSTODIAL CARE ON A CONTINUING BASIS FOR THE CONDITION(S) FOR WHICH HE/SHE WAS RECEIVINGIN-PATIENT HOSPITAL SERVICES PRIOR TO HIS/HER TRANSFER TO THE F. 12/24/24 1711<Electronically signed by Shilpa Contreras MD> Diet Diet Order/Speech Therapy: INPATIENT Hospital Diet / Speech Therapy Order(s) 12/24/24 00:01 Diet: Nothing Per Oral Diet Comments: STRICT/hold all p.o. meds for now Routine Orders/Code Status Enema Frequency: Daily PRN Routine Lab Work: - (Repeat CBC, BMP in 1 week.) Code Status: Full Code DC O2, CPAP, BIPAP needs Home O2 Discharge instructions: Yes Type of respiratory needs?: Oxygen Oxygen frequency: Continuous Continuous oxygen liters per minute: 2 Wound(s) abdomen: Wound Type: Surgical Incision Therapies Weight Bearing: Full weight bearing Physical Therapy: Eval and Treat Occupational Therapy: Eval and Treat Speech Therapy: Eval and Treat Problem/Diagnosis (1) Acute CVA (cerebrovascular accident): Status: Acute Code(s): I63.9 - Cerebral infarction, unspecified Plan The patient is a 74 y/o M w/ PMHx: Former EtOH abuse, PAD s/p peripheral PCI, PAF reporting that he is on chronic Coumadin therapy but verified this was not the case, HTN, HLD, Chronic anemia/Fe deficiency anemia, COPD/Asthma w/ Chronic Hypoxic Respiratory Failure (2L NC), Seizure disorder, CKD stage III unclear subtype or GFR trending, GERD, BPH with obstructive pathology, Anxiety and depression, PJ noncompliant with PAP therapy, Tobacco use, recent discharge 12/16/24 following evaluation and treatment of Acute COPD Exacerbation who re-presents to the [facility] ED on 12/17/24 w/ severe dysarthria and right-sided facial droop with suspected CVA. #1. Acute severe dysarthria and right-sided facial droop secondary to acute left MCA stroke: Initial ED presentation with CT of the brain with no acute intracranial findings with cerebral atrophy, CTA head and neck with right and left ICA stenosis (right noted 75% stenosis, left noted 50% stenosis), MRI of the brain with focal restricted diffusion left periventricular deep white matterwith multiple foci with the largest measuring 1.2 x 0.9 cm with associated increased T2 signal intermediate to decreased T1 signal consistent with subacuteinfarct, punctate foci restricted diffusion in the left precentral subcortical region with associated increased T2, decreased T1 signal consistent with subacute infarct, extensive abnormal increased T2 and flair signal throughout the deep white matter confluence in the periventricular regions consistent with chronic ischemic change, 3.1 x 1.5 cm arachnoid cyst in the medial left temporaltip, mucosal thickening of the right maxillary sinus. Patient with persistent ongoing global aphasia, right-sided facial droop unfortunately not extremely cooperative, suspected likely cardioembolic source as underlying PAF not chronically anticoagulated secondary to falls, currently on aspirin therapy but per neurology recommendation will very cautiously initiate Eliquis 5 mg p.o. twice daily following PEG placement which was discussed with gastroenterology given high risk however given fall risk was continue to assess risk and benefit.12/23/2024 carotid ultrasound with moderate 50 to 69% stenosis of the right extracranial internal carotid and left extracranial internal carotid with patentantegrade vertebrals bilaterally. Refused EEG x 3. Vitamin B12 level normal limit at 774, initially received thiamine IV, transitioned to PEG version 12/24/24. 12/23/24 s/p PEG placement thus will transition from KS ASA->eliquis, d/c IV keppra and resume liquid carbamazepine,transition to HTN regimen per PEG, added back statin per PEG. Patient will need follow-up with neurology for strokefollow-up as well as vascular Surgery given carotid disease. #2. Recent Acute COPD Exacerbation w/ Chronic Hypoxic and Hypercarbic Respiratory Failure: Recent presentation with exacerbation, currently maintainedon Solu- Medrol 30 mg IV daily, 12/24/24 transitioned to prednisone 40 mg via PEG w/ planned 5 day burst taper at discharge. 12/24/24 change from IV PPI to PEG lansoprazole. Will continue ATC DuoNeb therapy as well as as needed albuterol. Continue supplemental oxygen currently 2 L nasal cannula which appears recent baseline. #3. Hypertension: 12/24/24 transitioned from IV labetalol, hydralazine, enalapril, clonidine patch given s/p PEG to metoprolol, losartan, nifedipine from XL- >norvasc, continued clonidine patch with continued close monitoring for adjustments. #4. Chronic Kidney Disease Stage II per GFR trending: Admission BUN/creatinine 22/1.10, GFR 70, baseline renal function 1.1-1.2, 12/24/2024 BUN/creatinine 17/0.98, GFR 81, stable, continue to trend. #5. Chronic normocytic anemia/iron deficient anemia: Admission hemoglobin 12.4,MCV 89, baseline hemoglobin noted to vacillate however does range 11-12, 12/24/2024 hemoglobin 11.5, MCV 89.2, stable, continue to trend #6. PAF: 12/24/24 start BB and eliquis via PEG. #7. Hyperlipidemia: 12/24/24 restart statin via PEG. #8. Anxiety and depression: 12/24/24 restart sertraline and mirtazapine regimen via PEG. #9. BPH with obstructive pathology: 12/24/24 restart finasteride via PEG. Unable to use flomax with PEG. #10. GERD: 12/24/24 transition to PPI per PEG also. #11. Seizure disorder: 12/24/24 to liquid carbamazepine with dose now, d/c IV Keppra. #12. Tobacco Abuse: Patient extremely aphasic at this point, encouraged tobaccocessation. #13. PJ: Noncompliant with PAP therapy. #14. PAD: 12/24/24 will transition from rectal aspirin to Eliquis therapy status post PEG placement, transition from also IV hypertensive and topical hypertensive regimen to oral regimen, restart statin. #15. Former alcohol abuse: Encourage continued sobriety. #16. DVT prophylaxis: 12/24/24 start Eliquis, s/p PEG 12/23/24. #17. CODE status: From previous discussions with patient he had reported lacking healthcare power of consumer attorney and living will but had noted he would wanthis ex- Joseph be his medical decision-maker at that time if absolutely necessary. Full Code status. Allergies/Procedures Done in Hospital Allergies No Known Allergies Allergy (Verified 10/19/24 11:12) Procedures: EKG and - (PEG tube placement.) Type of Care/Length of Stay Estimated LOS: More Than 30 Days Type of Care Needed: Skilled Rehab Potential: Fair Prognosis: Fair Additional Orders/Day of Discharge Day of Discharge: 12/24/24 Dietary and Speech Recommendations Dietitian Recommendations/Changes: 1. Recommend advanced diet as tolerated to cardiac per AUTOMATIC SERGING MACHINE OPERATOR recommendations. 2. Will order to start at 8AM 12/24/24 via PEG Jevity 1.5Cal goal rate 55ml/hr with 165ml water flushes every 4 hours to provide 1980 calories, 84g protein, and 1993ml total free water per day. Would start at 10ml and increase by 10ml every 8-12 hours as tolerated until goal rate is achieved. Monitor labs for riskof refeeding syndrome due to prolonged NPO. Will make adjustments to tube feeding as needed. 3.Will order labs for magnesium and phosphorus to determine risk of refeeding syndrome. 4. Will monitor weight and labs. Discharge Plan Admission Admit Date/Time: 12/18/24 14:58 Primary Reason for Your Visit: Acute CVA, Severe Dysarthria, Dysphagia Attending Provider: Shilpa Contreras Primary Care Provider: Daija Morton Consulting Providers: Aung Peres; Gogo Gill; Ryan Vargas; Tamika Xiao; Daylin Schmitt; Roman Patel; Chrystal Collier; Luan Mcgraw; Jo Hughes;JOSETTE YANG; Angelo Wiley; Neelam Almendarez; Lisha Talamantes Instructions Additional Instructions / Restrictions: ADDITIONAL DISCHARGE INSTRUCTIONS/INFORMATION: #1. Acute severe dysarthria and right-sided facial droop secondary to acute left MCA stroke: --CT of the brain with no acute intracranial findings with cerebral atrophy. --CTA head and neck with right and left ICA stenosis (right noted 75% stenosis, left noted 50% stenosis) with follow-up 12/23/2024 carotid ultrasound with moderate 50 to 69% stenosis of the right extracranial internal carotid and left extracranial internal carotid with patent antegrade vertebrals bilaterally. Willneed outpatient follow-up with Vascular surgery as requested to monitor and re-evaluate. --MRI of the brain with focal restricted diffusion left periventricular deep white matter with multiple foci with the largest measuring 1.2 x 0.9 cm with associated increased T2 signal intermediate to decreased T1 signal consistent with subacute infarct, punctate foci restricted diffusion in the left precentralsubcortical region with associated increased T2, decreased T1 signal consistent with subacute infarct, extensive abnormal increased T2 and flair signal throughout the deep white matter confluence in the periventricular regions consistent with chronic ischemic change, 3.1 x 1.5 cm arachnoid cyst in the medial left temporal tip, mucosal thickening of the right maxillary sinus. --s/p PEG tube placement on 12/23/24, initiated on tube feeds with nutrition consultation. Recommend continued nutrition consultation and evaluation at the [facility] facility for ongoing assessments and alteration to feedings as needed. --12/24/2024 initiated on Eliquis regimen with de-escalation off aspirin therapy per neurology recommendation with continued liquid carbamazepine, statin therapy, hypertensive regimen with alterations as needed to transition to PEG formulation. Encouraged continued evaluation and monitoring of blood pressure with adjustment and alteration to regimen to maintain appropriate blood pressureparameters. #2. Recent Acute COPD Exacerbation w/ Chronic Hypoxic and Hypercarbic Respiratory Failure: --Recent presentation with exacerbation, transitioned initially to Solu-Medrol 30 mg IV daily w/ 12/24/24 transitioned to prednisone 40 mg via PEG w/ planned taper at discharge. --Will continue ATC DuoNeb therapy as well as as needed albuterol. --Continue supplemental oxygen currently 2 L nasal cannula which appears recent baseline. Discharge Orders/Prescriptions Prescriptions: New acetaminophen 325 mg Tablet 650 mg feeding tube Q6H PRN PRN (Reason: Pain 1-10 Or Fever>100.7) Qty: 0 0RF ipratropium-albuterol 0.5 mg-3 mg(2.5 mg base)/3 mL Solution For Nebulization 3 ml inhalation .[id number] Qty: 0 0RF albuterol sulfate 2.5 mg /3 mL (0.083 %) Solution For Nebulization 2.5 mg inhalation Q4H PRN (Reason: DYSPNEA/WHEEZING/SOB) Qty: 0 0RF clonidine 0.2 mg/24 hr Patch Weekly 0.2 mg transdermal Q7D Qty: 0 0RF amlodipine 10 mg Tablet 10 mg G-tube DAILY.RT Qty: 0 0RF carbamazepine 100 mg/5 mL Suspension 200 mg G-tube 4X/DAY Qty: 0 0RF Eliquis 5 mg Tablet 5 mg G-tube BID Qty: 0 0RF melatonin 3 mg Tablet 3 mg G-tube QHS PRN PRN (Reason: Insomnia) Qty: 0 0RF prednisone 20 mg Tablet 40 mg G-tube BREAKFAST 5 Days Qty: 10 0RF thiamine HCl (vitamin B1) 100 mg Tablet 100 mg G-tube BREAKFAST Qty: 0 0RF Jevity 1.5 Alex 0.06 gram-1.5 kcal/mL liquid 55 ml feeding tube .18hours Qty: 5688 0RF Rx Instructions: Goal TF: 55 ml/hr to run for 18 hours/day. Upon SNF transition goal is to achieve this and would plan to increase by 10 ml/hr every 8-12 hours until achieve the goal of 55 ml/hr for the 18 hour run daily. Flush 165 ml free water every 4 hours. lansoprazole 15 mg capsule,delayed release(DR/EC) 15 mg feeding tube DAILY 30 Days Qty: 30 0RF Continued atorvastatin 40 MG tablet 40 mg PO QHS Patient Comments: CHOLESTEROL alendronate 70 mg tablet 70 mg PO QWEEK Qty: 1 0RF clonidine 0.2 mg/24 hr patch weekly 1 patch topical QWEEK Patient Comments: HAS ONE ON NOW Changed sertraline 100 mg tablet 100 mg feeding tube DAILY 30 Days Qty: 30 0RF mirtazapine 15 MG tablet 15 mg feeding tube QHS 30 Days Qty: 30 0RF gabapentin 100 mg capsule 100 mg feeding tube DAILY 30 Days Qty: 30 0RF ergocalciferol (vitamin D2) [Vitamin D2] 1,250 mcg (50,000 unit) Capsule 1,250 mcg feeding tube Q7D Qty: 0 0RF losartan 100 mg tablet 100 mg feeding tube DAILY 30 Days Qty: 30 0RF finasteride 5 MG tablet 5 mg feeding tube DAILY 30 Days Qty: 30 0RF Patient Comments: prostate metoprolol tartrate 25 mg tablet 25 mg feeding tube DAILY 30 Days Qty: 30 0RF cholecalciferol (vitamin D3) 50 mcg (2,000 unit) tablet 50 mcg feeding tube DAILY 30 Days Qty: 30 0RF Discontinued albuterol sulfate 90 mcg/actuation HFA aerosol inhaler 1 puff inhalation Q8H carbamazepine 200 mg tablet extended release 12 hr 200 mg PO Q12H tamsulosin 0.4 MG capsule 0.4 mg PO QHS Patient Comments: Prostate and urine clopidogrel 75 MG tablet 75 mg PO DAILY pantoprazole 40 mg tablet,delayed release (DR/EC) 40 mg PO DAILY nifedipine 90 mg tablet extended release 90 mg PO DAILY sennosides-docusate sodium [Stool Softener-Stimulant Laxat] 8.6-50 mg Tablet 2 tab PO BID PRN PRN (Reason: Constipation) Qty: 0 0RF albuterol sulfate 2.5 mg /3 mL (0.083 %) solution for nebulization 2.5 mg continuous nebulization DAILY Patient Comments: [NO ORIGINAL SIG] acetaminophen 500 mg Tablet 1,000 mg PO Q8 PRN (Reason: fever or pain) prednisone 10 mg tablet 10 mg PO DAILY Qty: 40 0RF Rx Instructions: 4 tablets x 4 days, 3 tablets x 4 days, 2 tablets x 4 days, 1 tablet x 4 days nicotine [Nicoderm CQ] 21 mg/24 hr patch 24 hour 1 patch transdermal DAILY Qty: 14 0RF clonidine HCl 0.1 mg Tablet 0.1 [...] Daija Morton MD [Primary Care Provider] - (Follow-up within 1-2 weeks following discharge to review admission.) Raul Jensen MD [Med Staff - Active Staff] - (Follow-up in 2-4 weeks for evaluation notable carotid disease to continue to monitor.) Korey Gibbs MD [Non-Staff -Ordering Privileges] - (Follow-up with Neurology, may see JTAC within 2-4 weeks of discharge.) Disposition Disposition (needs filled in before D/C Order can be placed): Residential Facility 12/24/24 0519 <Electronically signed by Shilpa Contreras MD> Cosigner Signature (if applicable): CC: Daylin Schmitt; Gogo Gill MD; Chrystal Collier MD; Dr. Paul Yang MD;Dr. Roman Patel DO; Dr. Aung Peres MD; Dr. Daija Morton MD; Dr. Ryan Vargas MD; Dr. Lisha Talamantes DO; Jo Hughes MD; Luan Mcgraw MD; DO Kerri; Angelo Wiley MD; Neelam Almendarez DO ~ [facility] Work Phone: [phone] Progress note Author Maya Talamantes [facility] Note Date/Time December 24, 2024 2:56p m [facility] Medical Records Department [address] [place] [address] Progress Note - Neurology 12/24/24 1451 MR#: [id number] Acct: [id number] Name: PEDRO PABLO SIERRA Rep #:[id number] : 1950 74 From: Maya Talamantes MD PCP: Dr. Daija Morton MD Status:ADM I N Location: [place] [address] Objective Data Objective Data Vital Signs: Vital Signs Temp Pulse Resp BP Pulse Ox O2 Del Method O2 Flow Rate 97.6 F L 55 L 18 168/71 H 97 Nasal Cannula 2 12/24/24 11:00 12/24/24 13:00 12/24/24 11:00 12/24/24 13:00 12/24/24 11:00 12/24/24 11:00 12/24/24 11:00 Oxygen Flow Rate (L/min) 2 Oxygen Delivery Method Nasal Cannula Weight: 73 kg Body Mass Index (BMI) 24.5 Intake & Output: Intake and Output for Last 24 Hours 12/22/24 12/23/24 12/24/24 23:59 23:59 23:59 Intake Total 2326.25 / 2326.25 2064.00 / 2064.00 767.50 / 767.50 Output Total 2350 / 2650 878 / 878 500 / 500 Balance -23.75 / -323.75 1186.00 / 1186.00 267.50 / 267.50 Lab / Micro Data 12/24/24 05:28 12/24/24 05:28 Labs: Laboratory Results - last 24 hr 12/24/24 05:28: WBC 8.5, RBC 4.15 L, Hgb 11.5 L, Hct 37.0 L, MCV 89.2, MCH 27.7,MCHC 31.1 L, RDW Std Deviation 46.6 H, RDW Coeff of Aly 14.6, Plt Count 380, MPV9.7, Immature Gran % (Auto) 0.500, Neut % (Auto) 82.4 H, Lymph % (Auto) 8.5 L, Wayne % (Auto) 7.7, Eos % (Auto) 0.4, Baso % (Auto) 0.5, Absolute Neuts (auto) 7.0, Absolute Lymphs (auto) 0.72 L, Nucleated RBC % 0, Sodium 140, Potassium 3.9, Chloride 106, Carbon Dioxide 23.1, Anion Gap 11, BUN 17, Creatinine 0.98, Estim Creat Clear Calc 63.01, Est GFR (MDRD) Non-Af 81, BUN/Creatinine Ratio 16.9, Glucose 92, Calcium 8.4, Total Bilirubin 0.25, AST 23, ALT 28, Alkaline Phosphatase 64, Total Protein 6.0, Albumin 3.8, Globulin 2.2, Albumin/Globulin Ratio 1.8 Micro: Microbiology 12/19/24 10:00 Stool Enteric Bacteriology - Final 12/18/24 13:51 Stool Clostridioides difficile (PCR) - Final Physical Exam Neuro Neuro Narrative: Neurological examination: General: The patient appears sleepy, poor attention, unable to cooperate for most of exam. Mental Status: ?The patient?s mental status was decreased, garbledspeech not intelligible, does not follow most commands. ?Cranial nerves: ?No visual complaints, and extra-ocular motion was intact. Eyes open, Face symmetric. ?There was severe dysarthria. Motor: Uncooperative, but appears anti-gravity in left arm. Sensation: Deferred. ?Coordination: ??There was no dysmetria. Gait: ?deferred Subject: Neurology Subjective PEG yesterday. Eliquis started today. 168/. Patient can move the left arm whenhe wants to, but does not to command. EEG Results Procedure Details EEG Procedure Details: Assessment and Plan: Stroke Assessment/Plan PEDRO PABLO SIERRA is a 74 M smoker with a history of atrial fibrillation (not on AC, coumadin stopped since Mar), HTN, COPD exacerbation (recent hospitalization for respiratory failure), HTN, HL, PVD, Seizure disorder on keppra, PVD, and CDwho presented to [facility] ED on 12/17/2024 with dysarthria and right-sided facial droop (LKN noon). Initial NIHSS [address] brain negative. CTA head neck shows R ICA 75% and left ICA 50% stenosis. MRI brain DWI+ small acute left MCA infarct. LDL 63, HgbA1c 5.9. TTE EF 55%. CUS 50-69% bilaterally. PEG placed 12/23/24. Eliquis started today. Unable to do EEG x3 bc patient does not cooperate- swats the public health technician away. Neurological examination limited by decreased mental status, but grossly shows aphasia and right hemiparesis. ASSESSMENT/PLAN: Acute left MCA ischemic stroke, PSD # 7. Stroke mechanism is like cardioembolism due to Afib. 1) Stroke work-up completed. 2) Continue eliquis for Afib stroke prevention. 3) Continue vascular risk factor modification. On lipitor 40. 4) Continue AEDs for seizure disorder 7) PT/OT consults- SNF placement. Follow-up in outpatient neurology clinic. Willsign off, please call us back with any stroek related questions. Primary team messaged recs on backline. Maya Talamantes MD NIHSS NIHSS Nursing Documentation NIHSS Nursing Documentation: NIHSS: Ischemic Stroke/TIA Start: 12/17/24 18:52 Text: For PCU Patients: NIH and Neuro Check every 4 Status: Complete hours, PRN and with change in RN caregiver. Freq: Q12 Protocol: Activity Type Activity Date Activity User E-sign Co-sign Detail Recorded Client Recorded Date Recorded By Document 12/22/24 08:15 DS [id number] 12/22/24 08:19 DS 12/22/24 08:15 NIH Stroke Scale [NIHSS] A score of 0 is normal or asymptomatic . Total possible score is 42. Inpatient: RN or Physician to activate a stroke alert for onset of new stroke symptoms or with NIHSS increase >/= 3 points. Following change in neurological status, NIHSS will be performed per physician order or more frequently PRN. -1a. Level of Consciousness 0 - Alert; keenly responsive -1b. LOC Questions 2 - Answers NEITHER question correctly -1c. LOC Commands 0 - Performs BOTH tasks correctly -2. Best Gaze 0 - Normal -3. Visual 0 - No visual loss -4. Facial Palsy 1 - Minor paralysis ( flattened nasolabial fold , asymmetry on smiling) -5a. Left Arm 0 - No drift; arm holds 90 ( or 45) degrees for full 10 seconds -5b. Right Arm 2 - Some effort against gravity; -6a. Left Leg 0 - No drift; leg holds 30- degree position for full 5 seconds -6b. Right Leg 2 - Some effort against gravity; -7. Limb Ataxia 0 - Absent -8. Sensory 0 - Normal; no sensory loss -9. Best Language 3 - Mute, global aphasia; -10. Dysarthria 2 - Severe dysarthria; -11. Extinction and Inattention 0 - No abnormality -Total 12 Query Text:A score of 0 is normal or asymptomatic. Total possible score is 42 . ED: Notify Physician for NIHSS increase by > / = 3 points. Inpatient: RN or Physician to activate a stroke alert for NIHSS increase of > / = 3 points. Coma Scale [Assess] -Eye Opening Spontaneous -Motor Obeys Commands -Verbal Incomprehensibl e [Total] -Coma Scale Total 12 NIHSS 1a. Level of Consciousness: 1 - Not alert; Arousable by minor stimuli to obey, answer & respond 1b. LOC Questions: 2 - Answers NEITHER question correctly 1c. LOC Commands: 2 - Performs NEITHER task correctly 2. Best Gaze: 0 - Normal 3. Visual: 0 - No visual loss 4. Facial Palsy: 0 - Normal symmetrical movements 5a. Left Arm: 2 - Some effort against gravity; 5b. Right Arm: 4- No movement 6a. Left Le - Some effort against gravity; 6b. Right Le - No movement 7. Limb Ataxia: 0 - Absent 8. Sensory: 0 - Normal; no sensory loss 9. Best Language: 3 - Mute, global aphasia; 10. Dysarthria: 2 - Severe dysarthria; 11. Extinction and Inattention: 0 - No abnormality Total: 12/24/24 2485 <Electronically signed by Maya Talamantes MD> Cosigner Signature (if applicable): CC: ~ Signed [facility] Work Phone: [phone] Progress note Author Shilpa Contreras [facility] Note Date/Time December 24, 2024 2:46p m [facility] Medical Records Department [address] [place] [address] Progress Note - Hospitalist 12/24/24705 MR#: [id number] Acct: [id number] Name: PEDRO PABLO SIERRA Rep #:[id number] : 1950 74 From: Shilpa Contreras MD PCP: Dr. Daija Morton MD Status:ADM I N Location: [place] [address] Reason for Visit Reason for Visit: Diagnoses Cerebral infarction, unspecified (12/18/24) Facial weakness (12/18/24) Aphasia (12/18/24) Subjective Subjective Patient with no acute events overnight per nursing staff. Patient remains significantly aphasic. No issues overnight status post PEG tube placement with tube feeds initiated today per discussion with nutrition. Also discussed with nursing staff and all medications as able were transitioned over to PEG with adjustments as needed. Discussed with case management/social work and still awaiting precertification for transition to skilled facility but patient is medically appropriate. Patient is unable to answer any ROS questions. Objective Data Objective Data Vital Signs: Vital Signs Temp Pulse Resp BP Pulse Ox O2 Del Method O2 Flow Rate 97.5 F L 77 20 H 167/61 H 93 Nasal Cannula 2 12/24/24 05:00 12/24/24 05:32 12/24/24 05:00 12/24/24 05:32 12/24/24 05:00 12/24/24 05:00 12/24/24 05:00 Oxygen Flow Rate (L/min) 2 Oxygen Delivery Method Nasal Cannula Weight: 160 lb 14.999 oz Body Mass Index (BMI) 24.5 Intake & Output: Intake and Output for Last 24 Hours 12/22/24 12/23/24 12/24/24 23:59 23:59 23:59 Intake Total 2326.25 / 2326.25 2064.00 / 2064.00 178.75 / 178.75 Output Total 2350 / 2650 878 / 878 500 / 500 Balance -23.75 / -323.75 1186.00 / 1186.00 -321.25 / -321.25 Lab / Micro Data 12/24/24 05:28 12/24/24 05:28 Labs: Laboratory Results - last 24 hr 12/24/24 05:28: WBC 8.5, RBC 4.15 L, Hgb 11.5 L, Hct 37.0 L, MCV 89.2, MCH 27.7,MCHC 31.1 L, RDW Std Deviation 46.6 H, RDW Coeff of Aly 14.6, Plt Count 380, MPV9.7, Immature Gran % (Auto) 0.500, Neut % (Auto) 82.4 H, Lymph % (Auto) 8.5 L, Wayne % (Auto) 7.7, Eos % (Auto) 0.4, Baso % (Auto) 0.5, Absolute Neuts (auto) 7.0, Absolute Lymphs (auto) 0.72 L, Nucleated RBC % 0, Sodium 140, Potassium 3.9, Chloride 106, Carbon Dioxide 23.1, Anion Gap 11, BUN 17, Creatinine 0.98, Estim Creat Clear Calc 63.01, Est GFR (MDRD) Non-Af 81, BUN/Creatinine Ratio 16.9, Glucose 92, Calcium 8.4, Total Bilirubin 0.25, AST 23, ALT 28, Alkaline Phosphatase 64, Total Protein 6.0, Albumin 3.8, Globulin 2.2, Albumin/Globulin Ratio 1.8 Micro: Microbiology 12/19/24 10:00 Stool Enteric Bacteriology - Final 12/18/24 13:51 Stool Clostridioides difficile (PCR) - Final Radiography Diagnostic Testing: Radiology Impression Carotid Duplex 12/20/24 11:54 Interpretation Summary Moderate (50-69%) stenosis right extracranial internal carotid. Moderate (50-69%) stenosis left extracranial internal carotid. Patent and antegrade vertebrals bilaterally. Ordering Physician: Lisha Talamantes Referring Physician: Daija Morton Performed By: Lit Juárez RVT Physical Exam Narrative Physical Examination: General: Awake, appears alert but not answering any orientation questions, extremely aphasic, seated upright in the PCU bed today. Skin: Normal color, normal turgor, no icterus, no cyanosis except occasional stage ecchymoses, abrasions. HEENT: AT/NC, EOMI, chronic significant right pupil dilation, more pinpoint leftpupil left-sided facial droop, mildly dry MM, persistent left facial droop, mildtongue deviation to the right. Lungs: Diminished, greater bases, appropriate effort, no rales, ronchi or wheezing. Heart: Regular rate and rhythm; no gallop, rub audible. Abdomen: Soft, NTTP, ND, mildly hyperactive BS, status post PEG tube placement. Extremities: No cyanosis, no clubbing, no significant distal edema. Neurological: Awake, appears alert but not answering any orientation questions, extremely aphasic, cognitive function certainly decreased from previous baselineduring previous admission, cranial nerves difficult to assess given command willingness, at this point as noted evidence of persistent left facial droop, mild tongue deviation to the right, chronic pupillary changes as noted, global aphasia, intermittently moving extremities been ongoing any commands, strength difficult to assess is not following commands. Psychiatric: Affect appears currently very flat, no acute evidence of depressiveor anxiety feelings. Assessment & Plan Assessment/Plan (1) Acute CVA (cerebrovascular accident): PLAN: Plan The patient is a 74 y/o M w/ PMHx: Former EtOH abuse, PAD s/p peripheral PCI, PAF reporting that he is on chronic Coumadin therapy but verified this was not the case, HTN, HLD, Chronic anemia/Fe deficiency anemia, COPD/Asthma w/ Chronic Hypoxic Respiratory Failure (2L NC), Seizure disorder, CKD stage III unclear subtype or GFR trending, GERD, BPH with obstructive pathology, Anxiety and depression, PJ noncompliant with PAP therapy, Tobacco use, recent discharge 12/16/24 following evaluation and treatment of Acute COPD Exacerbation who re-presents to the [facility] ED on 12/17/24 w/ severe dysarthria and right-sided facial droop with suspected CVA. #1. Acute severe dysarthria and right-sided facial droop secondary to acute left MCA stroke: Initial ED presentation with CT of the brain with no acute intracranial findings with cerebral atrophy, CTA head and neck with right and left ICA stenosis (right noted 75% stenosis, left noted 50% stenosis), MRI of the brain with focal restricted diffusion left periventricular deep white matterwith multiple foci with the largest measuring 1.2 x 0.9 cm with associated increased T2 signal intermediate to decreased T1 signal consistent with subacuteinfarct, punctate foci restricted diffusion in the left precentral subcortical region with associated increased T2, decreased T1 signal consistent with subacute infarct, extensive abnormal increased T2 and flair signal throughout the deep white matter confluence in the periventricular regions consistent with chronic ischemic change, 3.1 x 1.5 cm arachnoid cyst in the medial left temporaltip, mucosal thickening of the right maxillary sinus. Patient with persistent ongoing global aphasia, right-sided facial droop unfortunately not extremely cooperative, suspected likely cardioembolic source as underlying PAF not chronically anticoagulated secondary to falls, currently on aspirin therapy but per neurology recommendation will very cautiously initiate Eliquis 5 mg p.o. twice daily following PEG placement which was discussed with gastroenterology given high risk however given fall risk was continue to assess risk and benefit.12/23/2024 carotid ultrasound with moderate 50 to 69% stenosis of the right extracranial internal carotid and left extracranial internal carotid with patentantegrade vertebrals bilaterally. Refused EEG x 3. Vitamin B12 level normal limit at 774, initially received thiamine IV, transitioned to PEG version 12/24/24. 12/23/24 s/p PEG placement thus will transition from KS ASA->eliquis, d/c IV keppra and resume liquid carbamazepine,transition to HTN regimen per PEG, addback statin per PEG. Awaiting [facility] facility placement pre-CERT for transition as clinically stabilized s/p PEG with transition of medications as noted. Patient will need follow-up with Vascular Surgery given carotid disease. #2. Recent Acute COPD Exacerbation w/ Chronic Hypoxic and Hypercarbic Respiratory Failure: Recent presentation with exacerbation, currently maintainedon Solu- Medrol 30 mg IV daily, 12/24/24 transitioned to prednisone 40 mg via PEG w/ planned taper at discharge. 12/24/24 change from IV PPI to PEG PPI version. Will continue ATC DuoNeb therapy as well as as needed albuterol. Continue supplemental oxygen currently 2 L nasal cannula which appears recent baseline. #3. Hypertension: 12/24/24 will transition from IV labetalol, hydralazine, enalapril, clonidine patch given s/p PEG to metoprolol, losartan, nifedipine from XL to short acting regimen and continued clonidine patch with continued close monitoring for adjustments. #4. Chronic Kidney Disease Stage II per GFR trending: Admission BUN/creatinine 22/1.10, GFR 70, baseline renal function 1.1-1.2, 12/24/2024 BUN/creatinine 17/0.98, GFR 81, stable, continue to trend. #5. Chronic normocytic anemia/iron deficient anemia: Admission hemoglobin 12.4,MCV 89, baseline hemoglobin noted to vacillate however does range 11-12, 12/24/2024 hemoglobin 11.5, MCV 89.2, stable, continue to trend #6. PAF: Will continue patient home labetalol regimen until PEG tube placed, asnoted above we will transition off aspirin therapy to Eliquis following PEG tubeplacement. #7. Hyperlipidemia: 12/24/24 restart statin via PEG. #8. Anxiety and depression: 12/24/24 restart sertraline and mirtazapine regimen via PEG. #9. BPH with obstructive pathology: 12/24/24 restart finasteride via PEG. Unable to use flomax with PEG. #10. GERD: 12/24/24 transition to PPI per PEG also. #11. Seizure disorder: 12/24/24 to liquid carbamazepine with dose now, d/c IV Keppra. #12. Tobacco Abuse: Patient extremely aphasic at this point, encouraged tobaccocessation. #13. PJ: Noncompliant with PAP therapy.. #14. PAD: 12/24/24 will transition from rectal aspirin to Eliquis therapy status post PEG placement, transition from also IV hypertensive and topical hypertensive regimen to oral regimen, restart statin. #15. Former alcohol abuse: Encourage continued sobriety. #16. DVT prophylaxis: 12/24/24 start Eliquis, s/p PEG 12/23/24. #17. CODE status: From previous discussions with patient he had reported lacking healthcare power of consumer attorney and living will but had noted he would wanthis ex- Joseph be his medical decision-maker at that time if absolutely necessary. Patient and daughter have been working with healthcare team closely and patient is maintained full code at this time. Charges/Coding Visit Charges Inpatient E&M: 39708 Subs Hosp L3 NIHSS NIHSS Nursing Documentation NIHSS Nursing Documentation: NIHSS: Ischemic Stroke/TIA Start: 12/17/24 18:52 Text: For PCU Patients: NIH and Neuro Check every 4 Status: Complete hours, PRN and with change in RN caregiver. Freq: Q12 Protocol: Activity Type Activity Date Activity User E-sign Co-sign Detail Recorded Client Recorded Date Recorded By Document 12/22/24 08:15 DS [id number] 12/22/24 08:19 DS 12/22/24 08:15 NIH Stroke Scale [NIHSS] A score of 0 is normal or asymptomatic . Total possible score is 42. Inpatient: RN or Physician to activate a stroke alert for onset of new stroke symptoms or with NIHSS increase >/= 3 points. Following change in neurological status, NIHSS will be performed per physician order or more frequently PRN. -1a. Level of Consciousness 0 - Alert; keenly responsive -1b. LOC Questions 2 - Answers NEITHER question correctly -1c. LOC Commands 0 - Performs BOTH tasks correctly -2. Best Gaze 0 - Normal -3. Visual 0 - No visual loss -4. Facial Palsy 1 - Minor paralysis ( flattened nasolabial fold , asymmetry on smiling) -5a. Left Arm 0 - No drift; arm holds 90 ( or 45) degrees for full 10 seconds -5b. Right Arm 2 - Some effort against gravity; -6a. Left Leg 0 - No drift; leg holds 30- degree position for full 5 seconds -6b. Right Leg 2 - Some effort against gravity; -7. Limb Ataxia 0 - Absent -8. Sensory 0 - Normal; no sensory loss -9. Best Language 3 - Mute, global aphasia; -10. Dysarthria 2 - Severe dysarthria; -11. Extinction and Inattention 0 - No abnormality -Total 12 Query Text:A score of 0 is normal or asymptomatic. Total possible score is 42 . ED: Notify Physician for NIHSS increase by > / = 3 points. Inpatient: RN or Physician to activate a stroke alert for NIHSS increase of > / = 3 points. Coma Scale [Assess] -Eye Opening Spontaneous -Motor Obeys Commands -Verbal Incomprehensibl e [Total] -Coma Scale Total 12 12/24/24 2836 <Electronically signed by Shilpa Contreras MD> Cosigner Signature (if applicable): CC: ~ Signed [facility] Work Phone: 1(441) 284-744107-08-2025 Telephone encounter Note* Telephone Encounter - Daija Morton MD - 12/24/2024 2:09 PM EDT Noted. RegardsDaija MD [facility]07-08-2025 Miscellaneous Notes* Telephone Encounter - Daija Morton MD - 12/24/2024 2:09 PM EDT Noted. Daija Tripp MD * Telephone Encounter - Kelly Zelaya RN - 12/17/2024 2:20 PM EDT Frank Wilkes called in to give an update on the Pt. She states he was just [facility] for respiratory failure, now he is out and in his own home. Pt had been living with his brother in his trailer, but now he lives down the street in his own trailer. She states his brother comes down everyday and checks on him. She reports the Pt has not been wearing his O2 or taking his medications. She states his O2 concentrator wasn't working today the hunidifyer wasn't blowing air, she states she was able to get it working again. When she got there she states his O2 was 84% and she was able to get him back up to 92% on 3L. She reports his lungs sound awful wheezes and rhonchi throughout anterior and posterior. She states he isn't able to bring anything up. She said she called and he should be getting his nebulizer tomorrow, which she told him should help him to cough some of that junk up. She also wanted to let provider know that Pt is smoking in his home, not with his O2 on, and she reinforced that he cannot smoke with O2 on. She states Pt has nicotine patches he could wear but chooses not to. She reports Pt's BP is hypertensive was 190/80 when she got there at 1200before he took his medication. She states when he was in the hospital he was in the 200s systolic. She states his brother will get him his medication, but it takes a lot of coaxing to get him to takethem. She states both the patient and his brother are both very angry. I had asked her about getting his medications put into pill packs, and she said she would look into that for him. She said it couldn't hurt. She said she would call back in with what pharmacy Pt would like to use. Kelly Zelaya RN [facility] Consult note Author Kyaw Borrego [facility] Note Date/Time December 23, 2024 3:51p [facility] Medical Records Department [address] [place] [address] Anesthesia Postop Eval II 12/23/24 1551 MR#: [id number] Acct: [id number] Name: PEDRO PABLO SIERRA Rep #:[id number] : 1950 74 From: Kyaw Borrego MD PCP: Dr. Daija Mroton MD Status:ADM I N Y Race: C Location: [place] [address] 1-1 Anesthesia Postop Eval I Sum Postop Eval Completion status Anesthesia document: Postop Eval 1 completed: Yes Anesthesia Postop Eval I Summary Anesthesia Postop Eval I Summary: Anesthesia Postop Eval I: Assessment Summary Airway patent Yes 12/23/24 15:30 [employer]GER [employer].CSIR Spontaneous unlabored Yes 12/23/24 15:30 MANAGER [employer].CSIR respirations Mental status nausea No 12/23/24 15:30 MANAGER [employer].CSIR Vomiting No 12/23/24 15:30 MANAGER [employer].CSIR Anesthesia Postop Eval I: Fluid Summary Crystalloid volume administer 200 12/23/24 15:30 MANAGER [employer]OVEMENT.CSIR (ml) Colloids volume administered ( ml) Blood Product volume administered (ml) Total IV fluid infused 200 12/23/24 15:30 MANAGER [employer]EMENT.CSIR Anesthesia Postop Eval I: Summary Notes Anesthesia Complication No 12/23/24 15:30 MANAGER PER[employer]OVEMENT.CSIR Anesthesia Complication Comment: Post-operative progress note Anesthesia: Postop Eval II Evaluation Mental status: Awake Pain Level: 0 nausea: No Vomiting: No 12/23/24 1551 <Electronically signed by Kyaw Borrego MD > Date _ Kyaw Borrego MD Cosigner Signature: Date CC: ~ Signed [facility] Work Phone: 1(858) 818-183007-07-2025 Consult note Author [facility]ío [facility] Note Date/Time December 23, 2024 3:32p [facility] Medical Records Department [address] [place] [id number] Anesthesia Postop Eval I 12/23/24 1530 MR#: [id number] Acct: [id number] Name: PEDRO PABLO SIERRA Rep #:[id number] : 1950 74 From: Rocío Barrios CRNA PCP: Dr. Daija Morton MD Status:ADM I N Y Race: C Location: [place] [address] 06-19 Anesthesia: Postop Eval I Current Vital Signs Temperature: 98.1 F Pulse Rate: 77 Blood Pressure: 112/58 Respiratory Rate: 24 Pulse Ox: 93 Assessment Airway patent: Yes Spontaneous unlabored respirations: Yes nausea: No Vomiting: No Anesthesia Complication: No Fluid Hydration Crystalloid volume administer (ml): 200 Total IV fluid infused: 200 Progress Note Anesthesia document: Postop Eval 1 completed: Yes 12/23/24 1532 <Electronically signed by Rocío blakely MANAGER PER[employer]MANCE [employer]OVEMENT> Date _ Rocío Barrios MANAGER PER[employer]OVEMENT Cosigner Signature: Date CC: ~ Signed [facility] Work Phone: 1(129) 883-147607-07-2025 Progress note Author Shilpa Contreras [facility] Note Date/Time December 23, 2024 3:24p m [facility] Medical Records Department [address] [place] [address] Progress Note - Hospitalist 12/23/24718 MR#: [id number] Acct: [id number] Name: PEDRO PABLO SIERRA Rep #:[id number] : 1950 74 From: Shilpa Contreras MD PCP: Dr. Daija Morton MD Status:ADM I N Location: [place] [address] Reason for Visit Reason for Visit: Diagnoses Cerebral infarction, unspecified (12/18/24) Facial weakness (12/18/24) Aphasia (12/18/24) Subjective Subjective The patient is a 74 y/o M w/ PMHx: Former EtOH abuse, PAD s/p peripheral PCI, PAF reporting that he is on chronic Coumadin therapy but verified this was not the case, HTN, HLD, Chronic anemia/Fe deficiency anemia, COPD/Asthma w/ Chronic Hypoxic Respiratory Failure (2L NC), Seizure disorder, CKD stage III unclear subtype or GFR trending, GERD, BPH with obstructive pathology, Anxiety and depression, JP noncompliant with PAP therapy, Tobacco use, recent discharge 12/16/24 following evaluation and treatment of Acute COPD Exacerbation who re-presents to the [facility] ED on 12/17/24 w/ severe dysarthria and right-sided facial droop with suspected CVA. Patient is extremely aphasic and only intermittently responsive. He is very resistant to following commands. Unable to answer ROS. Per discussion with nursing staff patient with no acute overnight events and stable vital signs otherwise. Objective Data Objective Data Vital Signs: Vital Signs Temp Pulse Resp BP Pulse Ox O2 Del Method O2 Flow Rate 97.3 F L 62 20 H 170/56 H 94 Nasal Cannula 2 12/23/24 06:17 12/23/24 07:15 12/23/24 07:15 12/23/24 06:17 12/23/24 07:15 12/23/24 07:15 12/23/24 07:15 Oxygen Flow Rate (L/min) 2 Oxygen Delivery Method Nasal Cannula Weight: 160 lb 14.999 oz Body Mass Index (BMI) 24.5 Intake & Output: Intake and Output for Last 24 Hours 12/21/24 12/22/24 12/23/24 23:59 23:59 23:59 Intake Total 1625.0 / 1625.0 2326.25 / 2326.25 853.75 / 853.75 Output Total 750 / 1150 2350 / 2650 550 / 550 Balance 875.0 / 475.0 -23.75 / -323.75 303.75 / 303.75 Lab / Micro Data 12/23/24 04:39 12/23/24 04:39 Labs: Laboratory Results - last 24 hr 12/23/24 04:39: WBC 7.5, RBC 4.04 L, Hgb 11.2 L, Hct 36.3 L, MCV 89.9, MCH 27.7,MCHC 30.9 L, RDW Std Deviation 46.0 H, RDW Coeff of Aly 14.1, Plt Count 376, MPV10.0, Sodium 139, Potassium 3.8, Chloride 104, Carbon Dioxide 24.1, Anion Gap 11, BUN 17, Creatinine 1.02, Estim Creat Clear Calc 60.54, Est GFR (MDRD) Non-Af77, BUN/Creatinine Ratio 16.4, Glucose 85, Calcium 8.4 Micro: Microbiology 12/19/24 10:00 Stool Enteric Bacteriology - Final 12/18/24 13:51 Stool Clostridioides difficile (PCR) - Final Physical Exam Narrative Physical Examination: General: Awake, appears alert but not answering any orientation questions, extremely aphasic, intermittently irritated, plan for PEG tube placement today. Skin: Normal color, normal turgor, no icterus, no cyanosis except occasional stage ecchymoses, abrasions. HEENT: AT/NC, EOMI, chronic significant right pupil dilation, more pinpoint leftpupil left-sided facial droop, mildly dry MM, persistent left facial droop, mildtongue deviation to the right. Lungs: Diminished, greater bases, appropriate effort, no rales, ronchi or wheezing. Heart: Regular rate and rhythm; no gallop, rub audible. Abdomen: Soft, NTTP, ND, hyperactive BS Extremities: No cyanosis, no clubbing, no significant distal edema. Neurological: Awake, appears alert but not answering any orientation questions, extremely aphasic, intermittently irritated, plan for PEG tube placement today, cognitive function certainly decreased from previous baseline during previous admission, cranial nerves difficult to assess given command willingness, at thispoint as noted evidence of persistent left facial droop, mild tongue deviation to the right, chronic pupillary changes as noted, global aphasia with decreased willingness to follow commands and interact, intermittently irritable, moving all extremities, strength difficult to assess is not following commands. Psychiatric: Affect appears initially mildly flat, occasionally irritable duringevaluation, no acute evidence of depressive or anxiety feelings. Assessment & Plan Assessment/Plan (1) Acute CVA (cerebrovascular accident): PLAN: Plan The patient is a 74 y/o M w/ PMHx: Former EtOH abuse, PAD s/p peripheral PCI, PAF reporting that he is on chronic Coumadin therapy but verified this was not the case, HTN, HLD, Chronic anemia/Fe deficiency anemia, COPD/Asthma w/ Chronic Hypoxic Respiratory Failure (2L NC), Seizure disorder, CKD stage III unclear subtype or GFR trending, GERD, BPH with obstructive pathology, Anxiety and depression, PJ noncompliant with PAP therapy, Tobacco use, recent discharge 12/16/24 following evaluation and treatment of Acute COPD Exacerbation who re-presents to the [facility] ED on 12/17/24 w/ severe dysarthria and right-sided facial droop with suspected CVA. #1. Acute severe dysarthria and right-sided facial droop secondary to acute left MCA stroke: Initial ED presentation with CT of the brain with no acute intracranial findings with cerebral atrophy, CTA head and neck with right and left ICA stenosis (right noted 75% stenosis, left noted 50% stenosis), MRI of the brain with focal restricted diffusion left periventricular deep white matterwith multiple foci with the largest measuring 1.2 x 0.9 cm with associated increased T2 signal intermediate to decreased T1 signal consistent with subacuteinfarct, punctate foci restricted diffusion in the left precentral subcortical region with associated increased T2, decreased T1 signal consistent with subacute infarct, extensive abnormal increased T2 and flair signal throughout the deep white matter confluence in the periventricular regions consistent with chronic ischemic change, 3.1 x 1.5 cm arachnoid cyst in the medial left temporaltip, mucosal thickening of the right maxillary sinus. Patient with persistent ongoing global aphasia, right-sided facial droop unfortunately not extremely cooperative, suspected likely cardioembolic source as underlying PAF not chronically anticoagulated secondary to falls, currently on aspirin therapy but per neurology recommendation will very cautiously initiate Eliquis 5 mg p.o. twice daily following PEG placement which was discussed with gastroenterology given high risk however given fall risk was continue to assess risk and benefit,currently at this point we will maintain on baby aspirin but transition over once appropriate, continue statin therapy, unfortunately patient has refused EEGx 3 now therefore deferred at this time, vitamin B12 level normal limit at 774, initially received thiamine 5 mg IV every 8 transition to 250 mg daily x 2-day and now on 100 mg daily following, initial permissive hypertension now on labetalol, hydralazine and clonidine patch in addition to enalapril, plan to transition over to oral regimen per PEG once placed, continue PT/OT//ST/case management consultation for discharge planning, follow-up 12/23/2024 carotid ultrasound with moderate 50 to 69% stenosis of the right extracranial internal carotid and left extracranial internal carotid with patent antegrade vertebrals bilaterally. Patient maintained n.p.o. status as unsafe oral intake, awaiting 12/23/2024 PEG tube placement. Currently also maintained on Keppra 1000 mg twice daily with plan for oral transition back to patient home carbamazepine regimen once PEG tube placed for prophylaxis. Once patient requires PEG tube and [facility] facility placement is pre-CERT obtained will transition as clinically stabilized aside from awaiting PEG and transition to Eliquis at that time. Patient will need follow-up with Vascular Surgery given carotid disease. #2. Recent Acute COPD Exacerbation w/ Chronic Hypoxic and Hypercarbic Respiratory Failure: Recent presentation with exacerbation, currently maintainedon Solu- Medrol 30 mg IV daily with initial plan per previous day team with 4 days of 30 mg then transition to 20 mg IV x 4 then 10 mg IV x 4 with stop following however at this point planned PEG tube placement as noted, could certainly consider transition to prednisone taper. Patient is n.p.o. with aspiration precautions. Currently maintained on IV PPI. Will continue ATC DuoNeb therapy as well as as needed albuterol. Continue supplemental oxygen currently 2 L nasal cannula which appears recent baseline. #3. Hypertension: As noted above given n.p.o. status awaiting PEG tube placement, maintained on labetalol, hydralazine, clonidine patch in addition to enalapril, will alter regimen once PEG tube placed. #4. Chronic Kidney Disease Stage II per GFR trending: Admission BUN/creatinine 22/1.10, GFR 70, baseline renal function 1.1-1.2, 12/23/2024 BUN/creatinine 17/1.02, GFR 77, stable, continue to trend. #5. Chronic normocytic anemia/iron deficient anemia: Admission hemoglobin 12.4,MCV 89, baseline hemoglobin noted to vacillate however does range 11-12, 12/23/2024 hemoglobin 0.2, MCV 89.9, stable, continue to trend #6. PAF: Will continue patient home labetalol regimen until PEG tube placed, asnoted above we will transition off aspirin therapy to Eliquis following PEG tubeplacement. #7. Hyperlipidemia: Will continue statin therapy once PEG placed. #8. Anxiety and depression: Once PEG placed reinitiate home sertraline and mirtazapine regimen. #9. BPH with obstructive pathology: Will continue patient on Flomax and finasteride regimen once PEG tube placed, monitor for retention. #10. GERD: Will continue on IV PPI, transition to oral regimen once PEG placed. #11. Seizure disorder: Awaiting PEG tube placement, currently on IV Keppra AED regimen, transition back to carbamazepine oral regimen once PEG placed. #12. Tobacco Abuse: Patient extremely aphasic at this point, encouraged tobaccocessation. #13. PJ: Noncompliant with PAP therapy.. #14. PAD: Currently on rectal aspirin, as noted above plan transition to Eliquis therapy status post PEG placement, continue IV hypertensive and topical hypertensive regimen until PEG tube placed, reinitiate statin therapy once PEG placed. #15. Former alcohol abuse: Encourage continued sobriety. #16. DVT prophylaxis: As noted currently maintained on [place] aspirin therapy, planinitiation of Eliquis therapy following PEG tube placement likely 12/25/2019 5 AM. #17. CODE status: From previous discussions with patient he had reported lacking healthcare power of consumer attorney and living will but had noted he would wanthis ex- Joseph be his medical decision-maker at that time if absolutely necessary. Patient and daughter have been working with healthcare team closely and patient is maintained full code at this time. Charges/Coding Visit Charges Inpatient E&M: 63580 Subs Hosp L3 NIHSS NIHSS Nursing Documentation NIHSS Nursing Documentation: NIHSS: Ischemic Stroke/TIA Start: 12/17/24 18:52 Text: For PCU Patients: NIH and Neuro Check every 4 Status: Complete hours, PRN and with change in RN caregiver. Freq: Q12 Protocol: Activity Type Activity Date Activity User E-sign Co-sign Detail Recorded Client Recorded Date Recorded By Document 12/22/24 08:15 DS [id number] 12/22/24 08:19 DS 12/22/24 08:15 NIH Stroke Scale [NIHSS] A score of 0 is normal or asymptomatic . Total possible score is 42. Inpatient: RN or Physician to activate a stroke alert for onset of new stroke symptoms or with NIHSS increase >/= 3 points. Following change in neurological status, NIHSS will be performed per physician order or more frequently PRN. -1a. Level of Consciousness 0 - Alert; keenly responsive -1b. LOC Questions 2 - Answers NEITHER question correctly -1c. LOC Commands 0 - Performs BOTH tasks correctly -2. Best Gaze 0 - Normal -3. Visual 0 - No visual loss -4. Facial Palsy 1 - Minor paralysis ( flattened nasolabial fold , asymmetry on smiling) -5a. Left Arm 0 - No drift; arm holds 90 ( or 45) degrees for full 10 seconds -5b. Right Arm 2 - Some effort against gravity; -6a. Left Leg 0 - No drift; leg holds 30- degree position for full 5 seconds -6b. Right Leg 2 - Some effort against gravity; -7. Limb Ataxia 0 - Absent -8. Sensory 0 - Normal; no sensory loss -9. Best Language 3 - Mute, global aphasia; -10. Dysarthria 2 - Severe dysarthria; -11. Extinction and Inattention 0 - No abnormality -Total 12 Query Text:A score of 0 is normal or asymptomatic. Total possible score is 42 . ED: Notify Physician for NIHSS increase by > / = 3 points. Inpatient: RN or Physician to activate a stroke alert for NIHSS increase of > / = 3 points. Coma Scale [Assess] -Eye Opening Spontaneous -Motor Obeys Commands -Verbal Incomprehensibl e [Total] -Coma Scale Total 12 12/23/24 1524 <Electronically signed by Shilpa Contreras MD> Cosigner Signature (if applicable): CC: ~ Signed [facility] Work Phone: 1(614) 753-975907-07-2025 Procedure [facility] 12-23-2024 Procedure [facility]07-07-2025 Progress note Author Paulino Henderson [facility] Note Date/Time December 23, 2024 2:46p m [facility] Medical Records Department [address] [place] [address] Progress Note 12/23/24 1445 MR#: [id number] Acct: [id number] Name: PEDRO PABLO SIERRA Rep #:[id number] : 1950 74 From: Paulino Henderson DO PCP: Dr. Daija Morton MD Status:ADM I N Location: [place] [address] Progress Note Patient with esophageal dysphagia. She has been n.p.o. for PEG tube placement today. He has been off of antiplatelet therapy. Physical Exam Const alert, no apparent distress and average body habitus; Negative for healthy appearing HEENT normocephalic and head/scalp atraumatic HEENT Narrative: Mucous membranes are slightly dry, tongue deviates to the right, dentition is poor, Mallampati is 2, no thrush Resp normal respiratory effort and clear to auscultation bilaterally Resp Narrative: Markedly diminished but clear Auscultation: Negative for crackles, rhonchi or wheezes Cardio regular rate and regular rhythm Cardio Narrative: Irregularly irregular GI normal to inspection, nondistended, normoactive bowel sounds, soft to palpation and non-tender Extremity no clubbing, cyanosis or edema Extremity Narrative: Pedal radial pulses are 2+ Neuro moves all extremities Neuro Narrative: Patient with continued obvious global aphasia, seems to move all extremities symmetrically, left facial droop, right pupil is chronically abnormal, tongue deviates to the right Speech: Negative for speech normal Psych Psych Narrative: Remains intermittently agitated and noncompliant Assessment & Plan Assessment/Plan (1) Acute CVA (cerebrovascular accident): (2) Facial droop: (3) Aphasia: PLAN: Patient will undergo PEG tube placement. Patient and patient family explained alternatives, risk and benefits include not withstanding bleeding, infection, sepsis, perforation, need for surgery . He will have an ASA of 3. Visit Charges Inpatient E&M: 34796 Subs Hosp L2 12/23/24 1446 <Electronically signed by Paulino Henderson DO> Paulino Henderson DO Cosigner Signature (if applicable): CC: ~ Signed [facility] Work Phone: [phone]) 490-806707-07-2025 Consult note Author Kyaw Borrego [facility] Note Date/Time December 23, 2024 2:02p m [facility] Medical Records Department [address] [place] [address] Pre-Anesthesia Evaluation 12/23/24 1400 MR#: [id number] Acct: [id number] Name: PEDRO PABLO SIERRA Rep #:[id number] : 1950 74 From: Kyaw Borrego MD PCP: Dr. Daija Morton MD Status:ADM I N Y Race: C Location: [place] [address] 1 ASA Classification* ASA Classification ASA Classification: 3 Assessment & Plan Anesthesia* Anesthesia Assessment Anesthesia Assessment: Discussed sedation and/or anesthesia options, risks, benefits, and alternatives with patient/parents/legal guardian/POA. Questions invited. The patient/parents/legal guardian/POA seems to understand and agrees to proceedwith anesthesia plan. Reviewed the physical assessment, medical history, allergy history and patient home medications list prior to surgery/procedure/anesthetic and documented any changes. Performed airway and anesthesia risk assessments. Anesthesia Type Anesthesia Type: MAC Anesthesia Focused Assessment* Temperature: 97.6 F Pulse Rate: 62 Blood Pressure: 159/73 Respiratory Rate: 19 Pulse Ox: 94 Oxygen Flow Rate (L/min): 2 Airway Assessment Mouth opens: >3 cm Mallampati Score: II Labs Anesthesia Preop lab: CBC WBC 7.5 K/mm3 (4.4-11.0) 12/23/24 04:39 12/23/24 RBC 4.04 M/mm3 (4.6-6.2) L 12/23/24 04:39 12/23/24 Hgb 11.2 g/dL (13.0-16.5) L 12/23/24 04:39 5 Hct 36.3 % (40-54) L 12/23/24 04:39 12/23/24 Plt Count 376 K/mm3 (150-450) 12/23/24 04:39 12/23/24 CHEMISTRY Potassium 3.8 mmol/L (3.3-5.1) 12/23/24 04:39 12/23/24 Sodium 139 mmol/L (133-145) 12/23/24 04:39 12/23/24 Magnesium 2.0 mg/dL (1.5-2.2) 12/15/24 05:19 12/15/24 Phosphorus 3.3 mg/dL (2.7-4.5) 12/15/24 05:19 12/15/24 BUN 17 mg/dL (4-19) 12/23/24 04:39 12/23/24 Creatinine 1.02 mg/dL (0.70-1.20) 12/23/24 04:39 12/23/24 Glucose 85 mg/dL (70-99) 12/23/24 04:39 12/23/24 POC Glucose 83 mg/dL (74-106) 02/20/24 17:14 02/20/24 TSH 3.380 uIU/mL (0.300-4.200) 12/17/24 16:00 0707/13 COAG PT 12.8 SECONDS (11.7-14.9) 12/17/24 16:00 Pre-Assessment Diagnosis/Proposed Procedure Planned Operative Procedure(s): EGD, PEG placement. 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 When Was Last Pacemaker Check QUESTION #4 FULL TEXT: You/Your Family Experience fever (hyperthermia) with Anesthesia Last Oral Intake Last Oral intake: Last Oral Intake NPO since 00:00 12/23/24 09:00 Meds taken in AM with sips of No 12/23/24 09:00 water? Meds patient instructed to take am of surgery PONV PONV - plastic worker: PONV - plastic worker Female HX of Motion Sickness HX of N/V After Surgery Non-Smoker Duration of Surgery greater than 60 minutes Number of Risk Factors PONV Score Height & Weight Height & Weight: Anesthesia: Height & Weight Height 5 ft 8 in 12/23/24 09:50 Weight: 73 kg 12/23/24 09:50 Body Mass Index (BMI) 24.5 12/23/24 09:00 Respiratory Assessment Respiratory Assessment - plastic worker: Respiratory Tract Infection Hx - plastic worker Hx Respiratory Tract Infection No 12/23/24 09:15 STOP Sleep Apnea STOP Sleep Apnea - plastic worker: STOP Sleep Apnea - plastic worker Hx Hypertension Yes 12/23/24 09:06 Hx Sleep Apnea Yes 12/17/24 20:07 CPAP No 12/17/24 20:07 BIPAP No 12/17/24 20:07 Do you snore loudly (louder than talking or can be heard Do you often feel tired/ fatigued/ sleepy during daytime? Has anyone observed you stop breathing during sleep? STOP Results Positive 12/17/24 20:07 QUESTION #5 FULL TEXT : Do you snore loudly (louder than talking or can be heard through closed doors)? 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 Specify any problems Hx of Preganancy in last 3 Months Nurse Filling Out Transfusion & Questions: Date: Time: Patient unable to answer at Yes 12/17/24 20:07 this time (ie. confused, unrespo /Reproduction History /Reproductive History - plastic worker: /Reproductive Hx- plastic worker Hx Now Gestational Age (in weeks): EDC: Hx Hx Para Hx Section SAB No 11/27/21 05:25 Active Medications Active Medications: Current Medications Generic Name Dose Route Start Last Admin Trade Name Freq PRN Reason Stop Dose Admin Acetaminophen 650 mg 12/17/24 18:52 Acetaminophen 325 Mg Tablet PO Q6H PRN PRN Pain 1-10 Or Fever>100.7 Albuterol Sulfate 2.5 mg 12/17/24 19:04 Albuterol 2.5 Mg/3 Ml Vial.Neb. INHALATION Q4H PRN DYSPNEA/WHEEZING/SOB Albuterol/Ipratropium 3 ml 12/17/24 19:30 12/23/24 10:54 Ipratropium/Albuterol Sulfate 3 Ml Ampul.Neb INHALATION 3 ml Q4HWA.RT LEON Administration Aspirin 300 mg 12/18/24 11:00 12/22/24 09:16 Aspirin 300 Mg Suppository RC 300 mg DAILY LEON Administration Atorvastatin Calcium 40 mg 12/17/24 22:00 12/17/24 20:54 Atorvastatin Calcium 40 Mg Tablet PO Not Given QHS LEON Carbamazepine 200 mg 12/17/24 22:00 12/18/24 09:52 Carbamazepine 200 Mg Cpmp.12hr PO Not Given BID LEON Cholecalciferol 50 mcg 12/18/24 10:00 12/18/24 09:52 Cholecalciferol (Vit D3) 25 Mcg Tablet (1,000 Units) PO Not Given DAILY LEON Clonidine HCl 0.2 mg 12/21/24 10:00 12/21/24 10:19 Clonidine Hcl 0.2 Mg Patch TD 0.2 mg Q7D LEON Administration Enalaprilat 1.25 mg 12/22/24 13:03 12/23/24 11:48 Enalaprilat 1.25 Mg/Ml Vial IV 1.25 mg Q6 LEON Administration Protocol Finasteride 5 mg 12/18/24 10:00 12/18/24 09:52 Finasteride 5 Mg Tablet PO Not Given DAILY LEON Gabapentin 100 mg 12/18/24 10:00 12/18/24 09:52 Gabapentin 100 Mg Capsule PO Not Given DAILY LEON Hydralazine HCl 10 mg 12/21/24 08:30 12/23/24 11:54 Hydralazine 20 Mg/Ml Vial IV 10 mg Q6 LEON Administration Protocol Sodium Chloride 250 mls @ 15 mls/hr 12/17/24 19:51 IV .[id number] PRN Saline Flush Sodium Chloride 250 mls @ 15 mls/hr 12/17/24 19:51 IV .[id number] PRN Additional IVPB Infusion Levetiracetam 1,000 mg in 100 mls @ 400 mls/hr 12/17/24 22:00 12/23/24 09:45 IV Infused Q12 LEON Infusion Pantoprazole Sodium 40 mg/ 100 mls @ 300 mls/hr 12/19/24 10:00 12/23/24 09:26 Sodium Chloride IV Infused Q24 LEON Infusion Lactated Ringer's 1,000 mls @ 75 mls/hr 12/18/24 15:30 12/23/24 13:10 IV 0 mls/hr .[id number] LEON Infusion Thiamine HCl 250 mg/ Sodium 52.5 mls @ 200 mls/hr 12/22/24 10:00 12/23/24 11:01 Chloride IV 12/24/24 10:01 Infused DAILY LEON Infusion Thiamine HCl 100 mg/ Sodium 51 mls @ 200 mls/hr 12/25/24 10:00 Chloride IV DAILY LEON Labetalol HCl 20 mg 12/20/24 18:00 12/23/24 12:34 Labetalol 20 Mg/4 Ml Vial IV Not Given Q6 LEON Melatonin 3 mg 12/17/24 18:52 Melatonin 3 Mg Tablet PO QHS PRN PRN INSOMNIA Methylprednisolone Sodium Succinate 30 mg 12/21/24 10:00 12/23/24 10:41 Methylprednisolone Sod Succ 40 Mg/Ml Vial IV 30 mg DAILY LEON Administration Mirtazapine 15 mg 12/17/24 22:00 12/17/24 20:54 Mirtazapine 15 Mg Tablet PO Not Given QHS LEON Ondansetron HCl 4 mg 12/17/24 18:52 Ondansetron 4 Mg/2 Ml Vial IV Q8H PRN PRN NAUSEA/VOMITING Pantoprazole Sodium 40 mg 12/18/24 10:00 12/18/24 09:52 Pantoprazole Sodium 40 Mg Tablet PO Not Given DAILY LEON Senna/Docusate Sodium 1 tablet 12/17/24 18:52 Senna/Docusate Sodium 1 Tablet PO BID PRN PRN Constipation Sertraline HCl 100 mg 12/18/24 10:00 12/18/24 09:52 Sertraline 100 Mg Tablet PO Not Given DAILY [facility] Sodium Chloride 10 - 40 ml 12/17/24 19:51 12/23/24 13:09 0.9% Saline Lock 10 Ml Syringe IV 10 ml UD PRN Administration SALINE FLUSH Tamsulosin HCl 0.4 mg 12/18/24 22:00 Tamsulosin Hcl 0.4 Mg Capsule PO QHS [facility] PFSH Medical History Weakness Debility Failure to thrive [...] Yes Type: coffee Number of servings: 3 Review of Systems (Anesthesia) ROS Narrative System reviewed and no additional complaints, except as documented. 12/23/24 1402 <Electronically signed by Kyaw Borrego MD > Date _ Kyaw Borrego MD Cosigner Signature: Date CC: ~ Signed [facility] Work Phone: 1(348) 680-383107-07-2025 Hospital Discharge instructionsAdditional Instructions ADDITIONAL DISCHARGE INSTRUCTIONS/INFORMATION: #1. Acute severe dysarthria and right-sided facial droop secondary to acute left MCA stroke: --CT of the brain with no acute intracranial findings with cerebral atrophy. --CTA head and neck with right and left ICA stenosis (right noted 75% stenosis, left noted 50% stenosis) with follow-up 12/23/2024 carotid ultrasound with moderate 50 to 69% stenosis of the right extracranial internal carotid and left extracranial internal carotid with patent antegrade vertebrals bilaterally. Will need outpatient follow-up with Vascular surgery as requested to monitor and re-evaluate. --MRI of the brain with focal restricted diffusion left periventricular deep white matter with multiple foci with the largest measuring 1.2 x 0.9 cm with associated increased T2 signal intermediate to decreased T1 signal consistent with subacute infarct, punctate foci restricted diffusion in the left precentral subcortical region with associated increased T2, decreased T1 signal consistent with subacute infarct, extensive abnormal increased T2 and flair signal throughout the deep white matter confluence in the periventricular regions consistent with chronic ischemic change, 3.1 x 1.5 cm arachnoid cyst in the medial left temporal tip, mucosal thickening of the right maxillary sinus. --s/p PEG tube placement on 12/23/24, initiated on tube feeds with nutrition consultation. Recommend continued nutrition consultation and evaluation at the [facility] facility for ongoing assessments and alteration to feedings as needed. --12/24/2024 initiated on Eliquis regimen with de-escalation off aspirin therapy per neurology recommendation with continued liquid carbamazepine, statin therapy, hypertensive regimen with alterations as needed to transition to PEG formulation. --Encouraged continued evaluation and monitoring of blood pressure with adjustment and alteration to regimen to maintain appropriate blood pressure parameters. #2. Recent Acute COPD Exacerbation w/ Chronic Hypoxic and Hypercarbic Respiratory Failure: --Recent presentation with exacerbation, transitioned initially to Solu-Medrol 30 mg IV daily w/ 12/24/24 transitioned to prednisone 40 mg via PEG w/ planned taper at discharge. --Will continue ATC DuoNeb therapy as well as as needed albuterol. --Continue supplemental oxygen currently 2 L nasal cannula which appears recent baseline. [facility]: [facility] [phone]) [phone] Progress note Author Lisha Talamantes [facility] Note Date/Time December 22, 2024 3:35p m [facility] Medical Records Department [address] [place] [address] Progress Note - Hospitalist 12/22/24 8443 MR#: [id number] Acct: [id number] Name: PEDRO PABLO SIERRA #:[id number] : 1950 74 From: Lisha Talamantes DO PCP: Dr. Daija Morton MD Status:ADM I N Location: [place] [address] Hospitalist Note Extensive conversation with POLuis's at the bedside which included his ex- and daughter. They were not in agreement on CODE STATUS at this time. His ex- wants him to remain full code. His daughter is changing more towards DNR CCA okay for short-term intubation. His daughter is going to talk more to patient'sex- about CODE STATUS however at this time we will keep his CODE STATUS as full code. They were completely updated on the plan for PEG tube tomorrow with initiation of anticoagulation following PEG tube placement and placement SNF at the time of discharge. We discussed overall prognosis with regards to his neurological status and they voiced understanding. 12/22/24 1535 <Electronically signed by Lisha Talamantes DO> Cosigner Signature (if applicable): CC: ~ Signed [facility] Work Phone: 1(740) 289-373807-06-2025 Progress note Author Lisha Talamantes [facility] Note Date/Time December 22, 2024 1:13p m [facility] Medical Records Department [address] [place] [id number] Progress Note - Hospitalist 12/22/24 0733 MR#: [id number] Acct: [id number] Name: PEDRO PABLO SIERRA R Rep #:[id number] : 1950 74 From: Lisha Talamantes DO PCP: Dr. Daija Morton MD Status:ADM I N Location: [place] [address] Reason for Visit Reason for Visit: facial droop/aphasia Subjective Subjective Patient has consistently refused EEG so we will discontinue this order. He doesseem to be intermittently agitated and frustrated. Blood pressure still above goal so we will add medication to see if we can improve this. Will transition to orals once PEG is placed. Objective Data Objective Data Vital Signs: Vital Signs Temp Pulse Resp BP Pulse Ox O2 Del Method O2 Flow Rate 97.7 F L 71 20 H 155/61 H 93 Nasal Cannula 2 12/22/24 04:01 12/22/24 06:44 12/22/24 06:44 12/22/24 04:01 12/22/24 06:44 12/22/24 06:44 12/22/24 06:44 Oxygen Flow Rate (L/min) 2 Oxygen Delivery Method Nasal Cannula Weight: 73 kg Body Mass Index (BMI) 24.5 Intake & Output: Intake and Output for Last 24 Hours 12/20/24 12/21/24 12/22/24 23:59 23:59 23:59 Intake Total 2231.25 / 2231.25 1625.0 / 1625.0 1000 / 1000 Output Total 1150 / 1150 750 / 1150 850 / 850 Balance 1081.25 / 1081.25 875.0 / 475.0 150 / 150 Lab / Micro Data 12/22/24 04:43 12/22/24 04:43 Labs: Laboratory Results - last 24 hr 12/21/24 06:47: Sodium 139, Potassium 3.5, Chloride 105, Carbon Dioxide 25.0, Anion Gap 9, BUN 16, Creatinine 0.99, Estim Creat Clear Calc 62.37, Est GFR (MDRD) Non-Af 80, BUN/Creatinine Ratio 16.2, Glucose 95, Calcium 8.3 12/22/24 04:43: WBC 7.5, RBC 4.23 L, Hgb 11.7 L, Hct 37.7 L, MCV 89.1, MCH 27.7,MCHC 31.0 L, RDW Std Deviation 45.0 H, RDW Coeff of Aly 13.8, Plt Count 392, MPV10.1, Sodium 139, Potassium 3.6, Chloride 103, Carbon Dioxide 24.6, Anion Gap 11, BUN 16, Creatinine 1.03, Estim Creat Clear Calc 59.95, Est GFR (MDRD) Non-Af76, BUN/Creatinine Ratio 15.7, Glucose 84, Calcium 8.8 Micro: Microbiology 12/19/24 10:00 Stool Enteric Bacteriology - Final 12/18/24 13:51 Stool Clostridioides difficile (PCR) - Final Physical Exam Const alert, no apparent distress and average body habitus; Negative for healthy appearing Constitutional Narrative: Older, white male, appears older than stated age, lying in bed getting cleaned up with nursing staff, currently calm but intermittently refuses care, seems intermittently frustrated HEENT normocephalic and head/scalp atraumatic HEENT Narrative: Mucous membranes are slightly dry, tongue deviates to the right, dentition is poor, Mallampati is 2, no thrush Resp normal respiratory effort, no retractions, no use of accessory muscles and clearto auscultation bilaterally Resp Narrative: Markedly diminished but clear Auscultation: Negative for crackles, rhonchi or wheezes Cardio regular rate, regular rhythm, S1 normal heart sound, S2 normal heart sound, no murmurs, no rub, no gallops and no clicks Cardio Narrative: Irregularly irregular GI normal to inspection, nondistended, normoactive bowel sounds, soft to palpation and non-tender Extremity no clubbing, cyanosis or edema Extremity Narrative: Pedal radial pulses are 2+ Neuro moves all extremities Neuro Narrative: Patient with continued obvious global aphasia, seems to move all extremities symmetrically, left facial droop, right pupil is chronically abnormal, tongue deviates to the right Speech: Negative for speech normal Psych Psych Narrative: Remains intermittently agitated and noncompliant Assessment & Plan Assessment/Plan (1) Acute CVA (cerebrovascular accident): (2) Facial droop: (3) Aphasia: PLAN: Plan Acute left MCA stroke - Ongoing deficits include global aphasia, right facial droop and poorly cooperative due to aphasia - Likely cardioembolic as patient has history of atrial fibrillation and not able to be anticoagulated due to recurrent falls -Per discussion with neurology will start Eliquis 5 mg p.o. twice daily afterPEG placement as patient is to be institutionalized after discharge for rehab which should decrease his fall risk and overall his stroke risk is higher than his bleed risk at this time - Continue aspirin - Continue atorvastatin 40 mg daily as p.o. intake allows - EEG ordered and tried 3 times however patient refused each time so we will discontinue - B12 level is within normal limits at 774 - Patient received thiamine 500 mg every 8 hours x 1 day will start 250 mg dailyx 2 days starting tomorrow and then 100 mg daily to follow -Goal blood pressure is about 140-160 for the next several days then decrease to130/80 or less and ideally right around 160 - Continue labetalol 20 every 6, add hydralazine 10 every 6 and clonidine patch at 0.2 mg -BP is still above goal so we will add enalapril at 1.25 every 6 hours - Continue PT/OT/speech therapy - Neurology consultation noted-appreciate input and assistance - Carotid Dopplers are pending as the CTA suggested he has pretty significant narrowing--> neuro reviewed the images themselves and they feel that this was anovercall and desired duplex - Duplex remains pending anticipate this being done tomorrow Dysphagia - Not improving clinically and hit or miss with compliance and desire to do therapy - Patient has high aspiration risk - Continue speech therapy - Remains n.p.o. - Continue IV fluids with LR at 75 cc/h -Monitoring closely for signs of aspiration - Consult GI for PEG placement--> discussed with Dr. Henderson and plan is for PEG placement on Monday Diarrhea - Chronic - Infectious etiologies are unremarkable - Will add Imodium as needed once able to have enteral access History of paroxysmal atrial fibrillation - Continue IV labetalol - Currently in sinus rhythm - With current debilities stroke risk is higher than bleed risk so we will go ahead and start Eliquis 5 mg daily after PEG placement when okay with GI COPD with recent hospitalization for exacerbation - Please Solu-Medrol to 30 daily for x 4 days then only to 20 x 4 then 10 x 4 then stop -12/22/2024 is day 2 of 4 for 30 mg dosing - Continue aerosols as ordered - No current wheezing - Monitoring closely for aspiration Chronic normocytic anemia - Counts remain stable - Monitor CKD stage II - Creatinine stable - Follow Generalized weakness/debility/failure to thrive - Patient with ongoing chronic issues with debility and weakness as well as failure to thrive on top of acute stroke - Was recently just discharged home with home health care - Given acute infarct will need placement at the time of discharge Osteoporosis -Restart alendronate at discharge -Hold home cholecalciferol Seizure disorder - Hold home carbamazepine - Continue Keppra 1000 mg IV twice daily and transition back to carbamazepine once we could start enteral feeds CAD/essential hypertension/hyperlipidemia/history of stroke/PAD -Blood pressure is markedly elevated on presentation however it does not appear patient been compliant with his medications -Hold home nifedipine 90 mg daily -Hold home metoprolol 25 mg p.o. daily -Hold home losartan 100 mg daily -Hold home clonidine 0.1 mg p.o. twice daily - Despite IV labetalol, hydralazine, and clonidine patch as blood pressures are still above goal which currently should be around 140 -Will add scheduled enalaprilat 1.25 every 6 hours -As of 12/23/2024 should be able to drop the patient's blood pressure to more normotensive range with a goal being less than 140 and ideally 130 or less -Continue as needed IV medication for stroke protocol BPH with obstruction -Hold home Flomax -Hold home finasteride GERD -Continue PPI transition IV Tobacco abuse -continue nicotine patch -Recommend cessation Depression -Hold home sertraline DVT prophylaxis -Subcu Lovenox daily CODE STATUS - Full code Charges/Coding Visit Charges Inpatient E&M: 59010 Subs Hosp L2 NIHSS NIHSS Nursing Documentation NIHSS Nursing Documentation: NIHSS: Ischemic Stroke/TIA Start: 12/17/24 18:52 Text: For PCU Patients: NIH and Neuro Check every 4 Status: Active hours, PRN and with change in RN caregiver. Freq: Q12 Protocol: Activity Type Activity Date Activity User E-sign Co-sign Detail Recorded Client Recorded Date Recorded By Document 12/21/24 21:20 [id number] 12/21/24 21:19 12/21/24 21:20 NIH Stroke Scale [NIHSS] A score of 0 is normal or asymptomatic . Total possible score is 42. Inpatient: RN or Physician to activate a stroke alert for onset of new stroke symptoms or with NIHSS increase >/= 3 points. Following change in neurological status, NIHSS will be performed per physician order or more frequently PRN. -1a. Level of Consciousness 0 - Alert; keenly responsive -1b. LOC Questions 2 - Answers NEITHER question correctly -1c. LOC Commands 2 - Performs NEITHER task correctly -2. Best Gaze 0 - Normal -3. Visual 0 - No visual loss -4. Facial Palsy 1 - Minor paralysis ( flattened nasolabial fold , asymmetry on smiling) -5a. Left Arm 0 - No drift; arm holds 90 ( or 45) degrees for full 10 seconds -5b. Right Arm 1 - Drift; arm drifts downward but doesn?t hit the bed -6a. Left Leg 1 - Drift; leg falls by the end of 5- seconds, but does not hit bed -6b. Right Leg 2 - Some effort against gravity; -7. Limb Ataxia 0 - Absent -8. Sensory 0 - Normal; no sensory loss -9. Best Language 3 - Mute, global aphasia; -10. Dysarthria 2 - Severe dysarthria; -11. Extinction and Inattention 0 - No abnormality -Total 14 Query Text:A score of 0 is normal or asymptomatic. Total possible score is 42 . ED: Notify Physician for NIHSS increase by > / = 3 points. Inpatient: RN or Physician to activate a stroke alert for NIHSS increase of > / = 3 points. Coma Scale [Assess] -Eye Opening Spontaneous -Motor Obeys Commands -Verbal Incomprehensibl e [Total] -Coma Scale Total 12 12/22/24 1313 <Electronically signed by Lisha Talamantes DO> Cosigner Signature (if applicable): CC: ~ Signed [facility] Work Phone: [phone]) 568-510307-06-2025 Progress note Author Maya Talamantes [facility] Note Date/Time December 22, 2024 9:18a m [facility] Medical Records Department [address] [place] [address] Progress Note - Neurology 12/22/24913 MR#: [id number] Acct: [id number] Name: PEDRO PABLO SIERRA Rep #:[id number] : 1950 74 From: Maya Talamantes MD PCP: Dr. Daija Morton MD Status:ADM I N Location: [place] [address] Objective Data Objective Data Vital Signs: Vital Signs Temp Pulse Resp BP Pulse Ox O2 Del Method O2 Flow Rate 97.7 F L 63 17 151/46 H 98 Nasal Cannula 2 12/22/24 08:11 12/22/24 08:11 12/22/24 08:11 12/22/24 08:11 12/22/24 08:11 12/22/24 08:19 12/22/24 08:19 Oxygen Flow Rate (L/min) 2 Oxygen Delivery Method Nasal Cannula Weight: 73 kg Body Mass Index (BMI) 24.5 Intake & Output: Intake and Output for Last 24 Hours 12/20/24 12/21/24 12/22/24 23:59 23:59 23:59 Intake Total 2231.25 / 223.25 1625.0 / 1625.0 1000 / 1000 Output Total 1150 / 1150 750 / 1150 850 / 850 Balance 1081.25 / 1081.25 875.0 / 475.0 150 / 150 Lab / Micro Data 12/22/24 04:43 12/22/24 04:43 Labs: Laboratory Results - last 24 hr 12/22/24 04:43: WBC 7.5, RBC 4.23 L, Hgb 11.7 L, Hct 37.7 L, MCV 89.1, MCH 27.7,MCHC 31.0 L, RDW Std Deviation 45.0 H, RDW Coeff of Aly 13.8, Plt Count 392, MPV10.1, Sodium 139, Potassium 3.6, Chloride 103, Carbon Dioxide 24.6, Anion Gap 11, BUN 16, Creatinine 1.03, Estim Creat Clear Calc 59.95, Est GFR (MDRD) Non-Af76, BUN/Creatinine Ratio 15.7, Glucose 84, Calcium 8.8 Micro: Microbiology 12/19/24 10:00 Stool Enteric Bacteriology - Final 12/18/24 13:51 Stool Clostridioides difficile (PCR) - Final Physical Exam Neuro Neuro Narrative: Neurological examination: General: The patient appears sleepy, poor attention, unable to cooperate for most of exam. Mental Status: ?The patient?s mental status was decreased, garbledspeech not intelligible, does not follow most commands. ?Cranial nerves: ?No visual complaints, and extra-ocular motion was intact. Eyes open, Face symmetric. ?There was severe dysarthria. Motor: Uncooperative, but appears anti-gravity in left arm. Sensation: Deferred. ?Coordination: ??There was no dysmetria. Gait: ?deferred Subject: Neurology Subjective RN reports they were unable to do EEG- would take his left arm and swat the techaway. Patient moves his left side strongly when he wants, but right side remainsplegic. For me, patient uncooperative with exam. Assessment and Plan: Stroke Assessment/Plan Assessment/Plan PEDRO PABLO SIERRA is a 74 M smoker with a history of atrial fibrillation (not on AC, coumadin stopped since Mar), HTN, COPD exacerbation (recent hospitalization for respiratory failure), HTN, HL, PVD, Seizure disorder on keppra, PVD, and CDwho presented to [facility] ED on 12/17/2024 with dysarthria and right-sided facial droop (LKN noon). Initial NIHSS [address] brain negative. CTA head neck shows R ICA 75% and left ICA 50% stenosis. MRI brain DWI+ small acute left MCA infarct. LDL 63, HgbA1c 5.9. TTE EF 55%. Neurological examination shows decreased mental status, NIHSS 15. ASSESSMENT/PLAN: Acute left MCA ischemic stroke, PSD # 4. Stroke mechanism is like cardioembolism due to Afib. 1) Stroke work-up pending including EEG (patient refused) and CUS. 2) Continue daily anti-platelet med (Asa) for now. [facility]CC will need AC for Afib stroke prevention (but start after PEG) 3) Continue vascular risk factor modification. On lipitor 40. 4) Failed swallow eval. Patient currently NPO. Agree with plan for PEG 5) Agree with plan to start eliquis after PEG (and stop Asa once on eliquis). 6) Continue AEDs for seizure disorder 7) PT/OT consults. Primary team messaged recs on backline. Maya Talamantes MD NIHSS NIHSS Nursing Documentation NIHSS Nursing Documentation: NIHSS: Ischemic Stroke/TIA Start: 12/17/24 18:52 Text: For PCU Patients: NIH and Neuro Check every 4 Status: Active hours, PRN and with change in RN caregiver. Freq: Q12 Protocol: Activity Type Activity Date Activity User E-sign Co-sign Detail Recorded Client Recorded Date Recorded By Document 12/22/24 08:15 DS [id number] 12/22/24 08:19 DS 12/22/24 08:15 NIH Stroke Scale [NIHSS] A score of 0 is normal or asymptomatic . Total possible score is 42. Inpatient: RN or Physician to activate a stroke alert for onset of new stroke symptoms or with NIHSS increase >/= 3 points. Following change in neurological status, NIHSS will be performed per physician order or more frequently PRN. -1a. Level of Consciousness 0 - Alert; keenly responsive -1b. LOC Questions 2 - Answers NEITHER question correctly -1c. LOC Commands 0 - Performs BOTH tasks correctly -2. Best Gaze 0 - Normal -3. Visual 0 - No visual loss -4. Facial Palsy 1 - Minor paralysis ( flattened nasolabial fold , asymmetry on smiling) -5a. Left Arm 0 - No drift; arm holds 90 ( or 45) degrees for full 10 seconds -5b. Right Arm 2 - Some effort against gravity; -6a. Left Leg 0 - No drift; leg holds 30- degree position for full 5 seconds -6b. Right Leg 2 - Some effort against gravity; -7. Limb Ataxia 0 - Absent -8. Sensory 0 - Normal; no sensory loss -9. Best Language 3 - Mute, global aphasia; -10. Dysarthria 2 - Severe dysarthria; -11. Extinction and Inattention 0 - No abnormality -Total 12 Query Text:A score of 0 is normal or asymptomatic. Total possible score is 42 . ED: Notify Physician for NIHSS increase by > / = 3 points. Inpatient: RN or Physician to activate a stroke alert for NIHSS increase of > / = 3 points. Coma Scale [Assess] -Eye Opening Spontaneous -Motor Obeys Commands -Verbal Incomprehensibl e [Total] -Coma Scale Total 12 NIHSS 1a. Level of Consciousness: 1 - Not alert; Arousable by minor stimuli to obey, answer & respond 1b. LOC Questions: 2 - Answers NEITHER question correctly 1c. LOC Commands: 2 - Performs NEITHER task correctly 2. Best Gaze: 0 - Normal 3. Visual: 0 - No visual loss 4. Facial Palsy: 0 - Normal symmetrical movements 5a. Left Arm: 2 - Some effort against gravity; 5b. Right Arm: 3 - No effort against gravity; arm falls 6a. Left Le - Some effort against gravity; 6b. Right Le - No effort against gravity; leg falls to bed immediately 7. Limb Ataxia: 0 - Absent 8. Sensory: 0 - Normal; no sensory loss 9. Best Language: 2 - Severe aphasia; 10. Dysarthria: 2 - Severe dysarthria; Total: 19 12/22/24 0918 <Electronically signed by Maya Talamantes MD> Cosigner Signature (if applicable): CC: ~ Signed [facility] Work Phone: [phone]) 469-305707-05-2025 Progress note Author Maya Talamantes [facility] Note Date/Time December 21, 2024 1:50p m [facility] Medical Records Department [address] [place] [address] Progress Note - Neurology 12/21/24 1336 MR#: [id number] Acct: [id number] Name: PEDRO PABLO SIERRA Rep #:[id number] : 1950 74 From: Maya Talamantes MD PCP: Dr. Daija Morton MD Status:ADM I N Location: [place] [address] Objective Data Objective Data Vital Signs: Vital Signs Temp Pulse Resp BP Pulse Ox O2 Del Method O2 Flow Rate 97.4 F L 57 L 18 146/75 H 93 Nasal Cannula 3 12/21/24 02:40 12/21/24 13:10 12/21/24 06:42 12/21/24 13:10 12/21/24 06:42 12/21/24 08:35 12/21/24 11:18 Oxygen Flow Rate (L/min) 3 Oxygen Delivery Method Nasal Cannula Weight: 73 kg Body Mass Index (BMI) 24.5 Intake & Output: Intake and Output for Last 24 Hours 12/19/24 12/20/24 12/21/24 23:59 23:59 23:59 Intake Total 2288.75 / 2288.75 2231.25 / 2231.25 882.5 / 882.5 Output Total 790 / 790 1150 / 1150 300 / 300 Balance 1498.75 / 1498.75 1081.25 / 1081.25 582.5 / 582.5 Lab / Micro Data 12/21/24 06:47 12/21/24 06:47 Labs: Laboratory Results - last 24 hr 12/20/24 03:56: Vitamin B12 774 12/21/24 06:47: WBC 6.7, RBC 3.77 L, Hgb 10.4 L, Hct 33.8 L, MCV 89.7, MCH 27.6,MCHC 30.8 L, RDW Std Deviation 44.7 H, RDW Coeff of Aly 13.7, Plt Count 326, MPV9.7, Immature Gran % (Auto) 0.400, Neut % (Auto) 75.1 H, Lymph % (Auto) 14.2 L, Wayne % (Auto) 8.5, Eos % (Auto) 1.2, Baso % (Auto) 0.6, Absolute Neuts (auto) 5.0, Absolute Lymphs (auto) 0.95, Nucleated RBC % 0, Sodium 139, Potassium 3.5, Chloride 105, Carbon Dioxide 25.0, Anion Gap 9, BUN 16, Creatinine 0.99, Estim Creat Clear Calc 62.37, Est GFR (MDRD) Non-Af 80, BUN/Creatinine Ratio 16.2, Glucose 95, Calcium 8.3 Micro: Microbiology 12/19/24 10:00 Stool Enteric Bacteriology - Final 12/18/24 13:51 Stool Clostridioides difficile (PCR) - Final Physical Exam Neuro Neuro Narrative: Neurological examination: General: The patient appears sleepy, poor attention, unable to cooperate for most of exam. Mental Status: ?The patient?s mental status was decreased, garbledspeech not intelligible, does not follow most commands. ?Cranial nerves: ?No visual complaints, and extra-ocular motion was intact. Eyes open, Face symmetric. ?There was sever dysarthria. Motor: Anti-gravity in bilateral arms, bilateral legs move side to side. Sensation: Deferred. ?Coordination: ??There was no dysmetria. Gait: ?deferred Subject: Neurology Subjective 178/79. Primary team reports patient refused EEG. EEG Results Procedure Details EEG Procedure Details: PEDRO PABLO SIERRA is a 74 year old M with a past medical history of , who presents for evaluation of Electroencephalogram on DATE at TIME Assessment and Plan: Stroke Assessment/Plan PEDRO PABLO SIERRA is a 74 M smoker with a history of atrial fibrillation (not on AC, coumadin stopped since Mar), HTN, COPD exacerbation (recent hospitalization for respirature failure), HTN, HL, PVD, Seizure disorder on keppra, PVD, and CDwho presented to [facility] ED on 12/17/2024 with dysarthria and right-sided facial droop (LKN noon). Initial NIHSS [address] brainnegative. CTA head neck shows R ICA 75% and left ICA 50% stenosis. MRI brain DWi+ small acute left MCA infarct. LDL 63, HgbA1c 5.9. TTE EF 55%. Neurological examination shows decreased mental status, NIHSS 15. ASSESSMENT/PLAN: Acute left MCA ischemic stroke, PSD # 4. Stroke mechanism is like cardioembolism due to Afib. 1) Stroke work-up pending including EEG (patient refused) and CUS. 2) Continue daily anti-platelet med (Asa) for now. 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 On lipitor 40. 4) Failed swallow eval. Patient currently NPO. Agree with plan for PEG 5) Agree with plan to start eliquis after PEG (and stop Asa once on eliquis). 6) Continue AEDs for seizure disorder 7) PT/OT consults. Primary team messaged recs on backline. Maya Talamantes MD NIHSS NIHSS Nursing Documentation NIHSS Nursing Documentation: NIHSS: Ischemic Stroke/TIA Start: 12/17/24 18:52 Text: For PCU Patients: NIH and Neuro Check every 4 Status: Active hours, PRN and with change in RN caregiver. Freq: Q12 Protocol: Activity Type Activity Date Activity User E-sign Co-sign Detail Recorded Client Recorded Date Recorded By Document 12/21/24 08:35 DS [id number] 12/21/24 11:09 DS 12/21/24 08:35 NIH Stroke Scale [NIHSS] A score of 0 is normal or asymptomatic . Total possible score is 42. Inpatient: RN or Physician to activate a stroke alert for onset of new stroke symptoms or with NIHSS increase >/= 3 points. Following change in neurological status, NIHSS will be performed per physician order or more frequently PRN. -1a. Level of Consciousness 0 - Alert; keenly responsive -1b. LOC Questions 2 - Answers NEITHER question correctly -1c. LOC Commands 1 - Performs ONE task correctly -2. Best Gaze 1 - Partial gaze palsy; -3. Visual 0 - No visual loss -4. Facial Palsy 1 - Minor paralysis ( flattened nasolabial fold , asymmetry on smiling) -5a. Left Arm 0 - No drift; arm holds 90 ( or 45) degrees for full 10 seconds -5b. Right Arm 0 - No drift; arm holds 90 ( or 45) degrees for full 10 seconds -6a. Left Leg 0 - No drift; leg holds 30- degree position for full 5 seconds -6b. Right Leg 0 - No drift; leg holds 30- degree position for full 5 seconds -7. Limb Ataxia 2 - Present in 2 limbs -8. Sensory 1 - Mild-to- moderate sensory loss; -9. Best Language 3 - Mute, global aphasia; -10. Dysarthria 2 - Severe dysarthria; -11. Extinction and Inattention 0 - No abnormality -Total 13 Query Text:A score of 0 is normal or asymptomatic. Total possible score is 42 . ED: Notify Physician for NIHSS increase by > / = 3 points. Inpatient: RN or Physician to activate a stroke alert for NIHSS increase of > / = 3 points. Coma Scale [Assess] -Eye Opening Spontaneous -Motor Obeys Commands -Verbal Incomprehensibl e [Total] -Coma Scale Total 12 NIHSS 1a. Level of Consciousness: 1 - Not alert; Arousable by minor stimuli to obey, answer & respond 1b. LOC Questions: 2 - Answers NEITHER question correctly 1c. LOC Commands: 2 - Performs NEITHER task correctly 2. Best Gaze: 0 - Normal 3. Visual: 0 - No visual loss 4. Facial Palsy: 0 - Normal symmetrical movements 5a. Left Arm: 0 - No drift; arm holds 90 (or 45) degrees for full 10 seconds 5b. Right Arm: 0 - No drift; arm holds 90 (or 45) degrees for full 10 seconds 6a. Left Le - No effort against gravity; leg falls to bed immediately 6b. Right Le - No effort against gravity; leg falls to bed immediately 7. Limb Ataxia: 0 - Absent 8. Sensory: 0 - Normal; no sensory loss 9. Best Language: 2 - Severe aphasia; 10. Dysarthria: 2 - Severe dysarthria; Total: 15 12/21/24 1350 <Electronically signed by Maya Talamantes MD> Cosigner Signature (if applicable): CC: ~ Signed [facility] Work Phone: [phone]) 293-393207-05-2025 Progress note Author Lisha Talamantes [facility] Note Date/Time December 21, 2024 1:11p m [facility] Medical Records Department [address] [place] [address] Progress Note - Hospitalist 12/21/24 1243 MR#: [id number] Acct: [id number] Name: PEDRO PABLO SIERRA Rep #:[id number] : 1950 74 From: Lisha Talamantes DO PCP: Dr. Daija Morton MD Status:ADM I N Location: [place] [address] Reason for Visit Reason for Visit: Aphasia/Facial droop Subjective Subjective No issues overnight. Neuro wanted EEG and pt has not refused 3 x despite us explaining why we needed to do it. Became borderline aggressive on the last attempt. Blood pressure still up despite interventions done yesterday so we will just for today. Objective Data Objective Data Vital Signs: Vital Signs Temp Pulse Resp BP Pulse Ox O2 Del Method O2 Flow Rate 97.4 F L 55 L 18 200/85 H 93 Nasal Cannula 3 12/21/24 02:40 12/21/24 10:16 12/21/24 06:42 12/21/24 10:16 12/21/24 06:42 12/21/24 08:35 12/21/24 11:18 Oxygen Flow Rate (L/min) 3 Oxygen Delivery Method Nasal Cannula Weight: 73 kg Body Mass Index (BMI) 24.5 Intake & Output: Intake and Output for Last 24 Hours 12/19/24 12/20/24 12/21/24 23:59 23:59 23:59 Intake Total 2288.75 / 2288.75 2231.25 / 2231.25 882.5 / 882.5 Output Total 790 / 790 1150 / 1150 300 / 300 Balance 1498.75 / 1498.75 1081.25 / 1081.25 582.5 / 582.5 Lab / Micro Data 12/21/24 06:47 12/21/24 06:47 Labs: Laboratory Results - last 24 hr 12/20/24 03:56: Vitamin B12 774 12/21/24 06:47: WBC 6.7, RBC 3.77 L, Hgb 10.4 L, Hct 33.8 L, MCV 89.7, MCH 27.6,MCHC 30.8 L, RDW Std Deviation 44.7 H, RDW Coeff of Aly 13.7, Plt Count 326, MPV9.7, Immature Gran % (Auto) 0.400, Neut % (Auto) 75.1 H, Lymph % (Auto) 14.2 L, Wayne % (Auto) 8.5, Eos % (Auto) 1.2, Baso % (Auto) 0.6, Absolute Neuts (auto) 5.0, Absolute Lymphs (auto) 0.95, Nucleated RBC % 0, Sodium 139, Potassium 3.5, Chloride 105, Carbon Dioxide 25.0, Anion Gap 9, BUN 16, Creatinine 0.99, Estim Creat Clear Calc 62.37, Est GFR (MDRD) Non-Af 80, BUN/Creatinine Ratio 16.2, Glucose 95, Calcium 8.3 Micro: Microbiology 12/19/24 10:00 Stool Enteric Bacteriology - Final 12/18/24 13:51 Stool Clostridioides difficile (PCR) - Final Physical Exam Const alert, no apparent distress and average body habitus; Negative for healthy appearing Constitutional Narrative: Older, white male, appears older than stated age, sitting up in bed, watching television, calm today but gets intermittently agitated, nursing at bedside, intermittently uncooperative HEENT normocephalic, head/scalp atraumatic and moist oral mucous membranes HEENT Narrative: Tongue deviates to the right Resp normal respiratory effort, no retractions, no use of accessory muscles and No clear to auscultation bilaterally Resp Narrative: Markedly diminished but clear few scattered and expiratory wheezes that are veryslight and not nearly as coarse as he typically is Auscultation: wheezes; Negative for crackles or rhonchi Cardio regular rate, regular rhythm, S1 normal heart sound, S2 normal heart sound, no murmurs, no rub, no gallops and no clicks Cardio Narrative: Irregularly irregular GI normal to inspection, nondistended, normoactive bowel sounds, soft to palpation and non-tender Extremity no clubbing, cyanosis or edema Extremity Narrative: Pedal radial pulses are 2+ Neuro moves all extremities Neuro Narrative: Patient with continued obvious global aphasia, seems to move all extremities symmetrically, left facial droop, right pupil is chronically abnormal, tongue deviates to the right Sensorium / Orientation: awake and alert Speech: Negative for speech normal Psych Psych Narrative: Remains intermittently agitated and compliant Assessment & Plan Assessment/Plan (1) Acute CVA (cerebrovascular accident): (2) Facial droop: (3) Aphasia: PLAN: Plan Acute left MCA stroke - Ongoing deficits include global aphasia, right facial droop and poorly cooperative due to aphasia - Likely cardioembolic as patient has history of atrial fibrillation and not able to be anticoagulated due to recurrent falls -Per discussion with neurology will start Eliquis 5 mg p.o. twice daily afterPEG placement as patient is to be institutionalized after discharge for rehab which should decrease his fall risk and overall his stroke risk is higher than his bleed risk at this time - Continue aspirin - Continue atorvastatin 40 mg daily as p.o. intake allows - EEG ordered and tried 3 times however patient refused each time so we will discontinue - B12 level is within normal limits at 774 - Patient received thiamine 500 mg every 8 hours x 1 day will start 250 mg dailyx 2 days starting tomorrow and then 100 mg daily to follow -Goal blood pressure is about 140-160 for the next several days then decrease to130/80 or less and ideally right around 160 - Continue labetalol 20 every 6, add hydralazine 10 every 6 and clonidine patch at 0.2 mg - Continue PT/OT/speech therapy - Neurology consultation noted-appreciate input and assistance - Carotid Dopplers are pending as the CTA suggested he has pretty significant narrowing--> neuro reviewed the images themselves and they feel that this was anovercall and desired duplex Dysphagia - Not improving clinically and hit or miss with compliance and desire to do therapy - Patient has high aspiration risk - Continue speech therapy - Remains n.p.o. - Continue IV fluids - Consult GI for PEG placement--> discussed with Dr. Henderson and plan is for PEG placement on Monday History of paroxysmal atrial fibrillation - Continue IV labetalol - With current debilities stroke risk is higher than bleed risk so we will go ahead and start Eliquis 5 mg daily after PEG placement COPD with recent hospitalization for exacerbation - Please Solu-Medrol to 30 daily for x 4 days then only to 20 x 4 then 10 x 4 then stop - Continue aerosols as ordered Chronic normocytic anemia - Counts remain stable - Monitor CKD stage II - Creatinine stable - Follow Generalized weakness/debility/failure to thrive - Patient with ongoing chronic issues with debility and weakness as well as failure to thrive on top of acute stroke - Was recently just discharged home with home health care - Given acute infarct will need placement at the time of discharge Osteoporosis -Restart alendronate at discharge -Hold home cholecalciferol Seizure disorder - Hold home carbamazepine - Continue Keppra 1000 mg IV twice daily and transition back to carbamazepine once we could start enteral feeds CAD/essential hypertension/hyperlipidemia/history of stroke/PAD -Blood pressure is markedly elevated on presentation however it does not appear patient been compliant with his medications -Hold home nifedipine 90 mg daily -Hold home metoprolol 25 mg p.o. daily -Hold home losartan 100 mg daily -Hold home clonidine 0.1 mg p.o. twice daily -Patient currently on IV medication in the form of labetalol, hydralazine, and clonidine patch for blood pressure control with current systolic goal between 140 and 160 -Will add back home medication as able after PEG placed -Continue as needed IV medication for stroke protocol BPH with obstruction -Hold home Flomax -Hold home finasteride GERD -Continue PPI transition IV Tobacco abuse -continue nicotine patch -Recommend cessation Depression -Hold home sertraline DVT prophylaxis -Subcu Lovenox daily CODE STATUS - Full code Charges/Coding Visit Charges Inpatient E&M: 83400 Subs Hosp L2 NIHSS NIHSS Nursing Documentation NIHSS Nursing Documentation: NIHSS: Ischemic Stroke/TIA Start: 12/17/24 18:52 Text: For PCU Patients: NIH and Neuro Check every 4 Status: Active hours, PRN and with change in RN caregiver. Freq: Q12 Protocol: Activity Type Activity Date Activity User E-sign Co-sign Detail Recorded Client Recorded Date Recorded By Document 12/21/24 08:35 DS [id number] 12/21/24 11:09 DS 12/21/24 08:35 NIH Stroke Scale [NIHSS] A score of 0 is normal or asymptomatic . Total possible score is 42. Inpatient: RN or Physician to activate a stroke alert for onset of new stroke symptoms or with NIHSS increase >/= 3 points. Following change in neurological status, NIHSS will be performed per physician order or more frequently PRN. -1a. Level of Consciousness 0 - Alert; keenly responsive -1b. LOC Questions 2 - Answers NEITHER question correctly -1c. LOC Commands 1 - Performs ONE task correctly -2. Best Gaze 1 - Partial gaze palsy; -3. Visual 0 - No visual loss -4. Facial Palsy 1 - Minor paralysis ( flattened nasolabial fold , asymmetry on smiling) -5a. Left Arm 0 - No drift; arm holds 90 ( or 45) degrees for full 10 seconds -5b. Right Arm 0 - No drift; arm holds 90 ( or 45) degrees for full 10 seconds -6a. Left Leg 0 - No drift; leg holds 30- degree position for full 5 seconds -6b. Right Leg 0 - No drift; leg holds 30- degree position for full 5 seconds -7. Limb Ataxia 2 - Present in 2 limbs -8. Sensory 1 - Mild-to- moderate sensory loss; -9. Best Language 3 - Mute, global aphasia; -10. Dysarthria 2 - Severe dysarthria; -11. Extinction and Inattention 0 - No abnormality -Total 13 Query Text:A score of 0 is normal or asymptomatic. Total possible score is 42 . ED: Notify Physician for NIHSS increase by > / = 3 points. Inpatient: RN or Physician to activate a stroke alert for NIHSS increase of > / = 3 points. Coma Scale [Assess] -Eye Opening Spontaneous -Motor Obeys Commands -Verbal Incomprehensibl e [Total] -Coma Scale Total 12 12/21/24 1311 <Electronically signed by Lisha Talamantes DO> Cosigner Signature (if applicable): CC: ~ Signed [facility] Work Phone: [phone]) 855-308707-04-2025 Progress note Author Lisha Talamantes [facility] Note Date/Time December 20, 2024 12:05 pm [facility] Medical Records Department [address] [place] [address] Progress Note - Hospitalist 12/20/24 0717 MR#: [id number] Acct: [id number] Name: PEDRO PABLO SIERRA Rep #:[id number] : 1950 74 From: Lisha Talamantes DO PCP: Dr. Daija Morton MD Status:ADM I N Location: [place] [address] Reason for Visit Reason for Visit: Difficulty speaking/left facial droop Subjective Subjective No issues overnight. Patient still appears to be having difficulty protecting airway. Speech is still markedly impacted. Declining therapy at times. Objective Data Objective Data Vital Signs: Vital Signs Temp Pulse Resp BP Pulse Ox O2 Del Method O2 Flow Rate 97.2 F L 67 18 153/68 H 93 Nasal Cannula 2 12/20/24 05:53 12/20/24 07:16 12/20/24 07:16 12/20/24 05:53 12/20/24 07:16 12/20/24 07:16 12/20/24 07:16 Oxygen Flow Rate (L/min) 2 Oxygen Delivery Method Nasal Cannula Weight: 73 kg Body Mass Index (BMI) 24.5 Intake & Output: Intake and Output for Last 24 Hours 07/02/25 07/03/25 07/04/25 23:59 23:59 23:59 Intake Total 200 / 200 2288.75 / 2288.75 Output Total 1500 / 1500 790 / 790 Balance -1300 / -1300 1498.75 / 1498.75 Lab / Micro Data 12/20/24 03:56 12/19/24 05:32 Labs: Laboratory Results - last 24 hr 12/20/24 03:56: WBC 6.9, RBC 3.99 L, Hgb 10.9 L, Hct 35.7 L, MCV 89.5, MCH 27.3,MCHC 30.5 L, RDW Std Deviation 44.4 H, RDW Coeff of Aly 13.7, Plt Count 355, MPV10.0, Immature Gran % (Auto) 0.400, Neut % (Auto) 79.1 H, Lymph % (Auto) 9.9 L, Wayne % (Auto) 8.5, Eos % (Auto) 1.2, Baso % (Auto) 0.9, Absolute Neuts (auto) 5.5, Absolute Lymphs (auto) 0.69 L, Nucleated RBC % 0 Micro: Microbiology 12/19/24 10:00 Stool Enteric Bacteriology - Final 12/18/24 13:51 Stool Clostridioides difficile (PCR) - Final Radiography Diagnostic Testing: Radiology Impression Brain MRI 12/18/24 17:46 IMPRESSION: There is focal restricted diffusion in the left periventricular deep white matter with multiple foci with the largest measuring 1.2 by 0.9 cm with associated increased T2 signal, intermediate to decreased T1 signal, consistent with subacute infarct, image 17/26. There are punctate foci of restricted diffusion in the left precentral subcortical region which show associated increased T2, decreased T1 signal, consistent with subacute infarct, image 21/26. There is extensive abnormal increased T2 and FLAIR signal throughout the deep white matter, confluence in the periventricular regions, consistent with chronic ischemic change. There is a 3.1 x 1.5 cm arachnoid cyst at the medial left temporal tip. There is mucosal thickening in the right maxillary sinus. [facility] Const alert, no apparent distress and average body habitus; Negative for healthy appearing Constitutional Narrative: Older, white male, appears older than stated age, sitting up in bed, watching television, seems somewhat agitated, nursing at bedside, speech therapy arrives,cooperates intermittently HEENT normocephalic, head/scalp atraumatic and moist oral mucous membranes HEENT Narrative: Significant deviation of the tongue to the right Resp normal respiratory effort, no retractions, no use of accessory muscles and clearto auscultation bilaterally Resp Narrative: Markedly diminished but clear Auscultation: Negative for crackles, rhonchi or wheezes Cardio regular rate, S1 normal heart sound, S2 normal heart sound, no murmurs, no rub, no gallops, no clicks and peripheral pulses 2+ throughout Cardio Narrative: Irregularly irregular GI normal to inspection, nondistended, normoactive bowel sounds, soft to palpation and non-tender Extremity no clubbing, cyanosis or edema Extremity Narrative: Pedal radial pulses are 2+ Neuro moves all extremities Neuro Narrative: Patient with obvious global aphasia, seems to move all extremities symmetrically, left facial droop, right pupil is chronically abnormal, tongue deviates to the right Sensorium / Orientation: awake and alert Speech: Negative for speech normal Psych Psych Narrative: Mildly agitated today and somewhat disinterested, affect is flat Assessment & Plan Assessment/Plan (1) Acute CVA (cerebrovascular accident): (2) Facial droop: (3) Aphasia: PLAN: Plan Acute left MCA stroke - Ongoing deficits include global aphasia, right facial droop and poorly cooperative due to aphasia - Likely cardioembolic as patient has history of atrial fibrillation and not able to be anticoagulated due to recurrent falls -Per discussion with neurology will start Eliquis 5 mg p.o. twice daily afterPEG placement as patient is to be institutionalized after discharge for rehab which should decrease his fall risk and overall his stroke risk is higher than his bleed risk at this time - Patient with recent lipid panel at the end of October which showed total cholesterol 140/LDL of 63/HDL 64 - Continue aspirin - Continue atorvastatin 40 mg daily as p.o. intake allows - Okay to discontinue Plavix per neurology -Check EEG -Check B12 level -Thiamine 500 mg every 8 hours x 24 hours then 250 mg daily x 2 days then 100 mgdaily -Goal blood pressure is about 140-160 today and ideally right around 160 -Will increase labetalol to 20 every 6 hours scheduled - PT/OT are following thus far patient is doing quite poorly - Neurology consultation noted-appreciate input and assistance Dysphagia - No significant clinical improvement since yesterday - Continue speech therapy - Remains n.p.o. - Continue IV fluids - Consult GI for PEG placement--> discussed with Dr. Henderson and plan is for PEG placement on Monday History of paroxysmal atrial fibrillation - Continue IV labetalol - With current debilities stroke risk is higher than bleed risk so we will go ahead and start Eliquis 5 mg daily after PEG placement COPD with recent hospitalization for exacerbation -Will continue Solu-Medrol 40 mg for another 2 days then wean to 30 mg and decrease dose by 10 mg every 4 days - Continue aerosols as ordered Chronic normocytic anemia - Counts remain stable - Monitor CKD stage II - Creatinine stable - Follow Generalized weakness/debility/failure to thrive - Patient with ongoing chronic issues with debility and weakness as well as failure to thrive on top of acute stroke - Was recently just discharged home with home health care - Given acute infarct will need placement at the time of discharge Osteoporosis -Restart alendronate at discharge -Hold home cholecalciferol Seizure disorder - Hold home carbamazepine - Continue Keppra 1000 mg IV twice daily and transition back to carbamazepine once we could start enteral feeds CAD/essential hypertension/hyperlipidemia/history of stroke/PAD -Blood pressure is markedly elevated on presentation however it does not appear patient been compliant with his medications -Hold home nifedipine 90 mg daily -Hold home metoprolol 25 mg p.o. daily -Hold home losartan 100 mg daily -Hold home clonidine 0.1 mg p.o. twice daily -Continue as needed IV medication for stroke protocol BPH with obstruction -Hold home Flomax -Hold home finasteride GERD -Continue PPI transition IV Tobacco abuse -continue nicotine patch -Recommend cessation Depression -Hold home sertraline DVT prophylaxis -Subcu Lovenox daily CODE STATUS - Full code Charges/Coding Visit Charges Inpatient E&M: 87619 Subs Hosp L2 NIHSS NIHSS Nursing Documentation NIHSS Nursing Documentation: NIHSS: Ischemic Stroke/TIA Start: 12/17/24 18:52 Text: For PCU Patients: NIH and Neuro Check every 4 Status: Active hours, PRN and with change in RN caregiver. Freq: [id number] Protocol: Activity Type Activity Date Activity User E-sign Co-sign Detail Recorded Client Recorded Date Recorded By Document 12/20/24 05:53 MB [id number] 12/20/24 05:55 MB 12/20/24 05:53 NIH Stroke Scale [NIHSS] A score of 0 is normal or asymptomatic . Total possible score is 42. Inpatient: RN or Physician to activate a stroke alert for onset of new stroke symptoms or with NIHSS increase >/= 3 points. Following change in neurological status, NIHSS will be performed per physician order or more frequently PRN. -1a. Level of Consciousness 0 - Alert; keenly responsive -1b. LOC Questions 2 - Answers NEITHER question correctly -1c. LOC Commands 0 - Performs BOTH tasks correctly -2. Best Gaze 1 - Partial gaze palsy; -3. Visual 0 - No visual loss -4. Facial Palsy 1 - Minor paralysis ( flattened nasolabial fold , asymmetry on smiling) -5a. Left Arm 0 - No drift; arm holds 90 ( or 45) degrees for full 10 seconds -5b. Right Arm 0 - No drift; arm holds 90 ( or 45) degrees for full 10 seconds -6a. Left Leg 0 - No drift; leg holds 30- degree position for full 5 seconds -6b. Right Leg 0 - No drift; leg holds 30- degree position for full 5 seconds -7. Limb Ataxia 2 - Present in 2 limbs -8. Sensory 1 - Mild-to- moderate sensory loss; -9. Best Language 3 - Mute, global aphasia; -10. Dysarthria 2 - Severe dysarthria; -11. Extinction and Inattention 0 - No abnormality -Total 12 Query Text:A score of 0 is normal or asymptomatic. Total possible score is 42 . ED: Notify Physician for NIHSS increase by > / = 3 points. Inpatient: RN or Physician to activate a stroke alert for NIHSS increase of > / = 3 points. Coma Scale [Assess] -Eye Opening Spontaneous -Motor Obeys Commands 12/20/24 1205 <Electronically signed by Lisha Talamantes DO> Cosigner Signature (if applicable): CC: ~ Signed [facility] Work Phone: 1(262) 477-416307-04-2025 Progress note Author René Reno [facility] Note Date/Time December 20, 2024 11:53 am [facility] Medical Records Department [address] [place] [address] Progress Note - Neurology 12/20/24 1107 MR#: [id number] Acct: [id number] Name: PEDRO PABLO SIERRA Rep #:[id number] : 1950 74 From: René Damon PCP: Dr. Daija Morton MD Status:ADM I N Location: [place] [address] Objective Data Objective Data Vital Signs: Vital Signs Temp Pulse Resp BP Pulse Ox O2 Del Method O2 Flow Rate 97.7 F L 61 21 H 105/92 H 95 Nasal Cannula 2 12/20/24 09:41 12/20/24 09:41 12/20/24 09:41 12/20/24 10:00 12/20/24 09:41 12/20/24 09:41 12/20/24 09:41 Oxygen Flow Rate (L/min) 2 Oxygen Delivery Method Nasal Cannula Weight: 73 kg Body Mass Index (BMI) 24.5 Intake & Output: Intake and Output for Last 24 Hours 12/18/24 12/19/24 12/20/24 23:59 23:59 23:59 Intake Total 200 / 200 2288.75 / 2288.75 1182.5 / 1182.5 Output Total 1500 / 1500 790 / 790 Balance -1300 / -1300 1498.75 / 1498.75 1182.5 / 1182.5 Lab / Micro Data 12/20/24 03:56 12/19/24 05:32 Labs: Laboratory Results - last 24 hr 12/20/24 03:56: WBC 6.9, RBC 3.99 L, Hgb 10.9 L, Hct 35.7 L, MCV 89.5, MCH 27.3,MCHC 30.5 L, RDW Std Deviation 44.4 H, RDW Coeff of Aly 13.7, Plt Count 355, MPV10.0, Immature Gran % (Auto) 0.400, Neut % (Auto) 79.1 H, Lymph % (Auto) 9.9 L, Wayne % (Auto) 8.5, Eos % (Auto) 1.2, Baso % (Auto) 0.9, Absolute Neuts (auto) 5.5, Absolute Lymphs (auto) 0.69 L, Nucleated RBC % 0 Micro: Microbiology 12/19/24 10:00 Stool Enteric Bacteriology - Final 12/18/24 13:51 Stool Clostridioides difficile (PCR) - Final Physical Exam Narrative MS: awake, alert-drowsy, globally aphasic, not speaking, tracks, not tracking CN: no consistent BTT, subtle L gaze preference, R pupil not reactive and larger, ?R facial droop, M: moves LUE antigravity and spontaneously, RUE moves in the plane of the bed but less brisk. 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 EEG Results Procedure Details EEG Procedure Details: PEDRO PABLO SIERRA is a 74 year old M with a past medical history of , who presents for evaluation of Electroencephalogram on DATE at TIME Assessment and Plan: Stroke Assessment/Plan 74 M with a history of atrial fibrillation (not on AC due to prior frequent falls), HTN, COPD, CAD, documented cognitive impairment, recurrent falls, epilepsy (previously on CBZ), GERD, tobacco abuse who presents on 12/17 with expressive aphasia right facial droop from left MCA stroke from atrial fibrillation (not on anticoagulation) Neurological examination shows Global aphasia, right facial droop, poorly cooperative but moved all extremities. Neuroimaging shows MRI: small Left MCA stroke. NO hemorrhagic tx. CTA: R ICA 75% and left ICA 50% stenosis #ischemic stroke-etiology is cardioembolic. -Currently on ASA. Given small size of ischemic stroke, he is safe to start AC once his BP is controlled. Would prefer a DOAC for custodial AC. I would recommend re-evaluation of candiacy for AC despite the fall risk as the patient has an high risk of future embolic events ([id number] 10, HASBLED 4). His risk of a future embolic event is higher than risk of hemorrhage. Recommend the primary team discuss risks/benefits with surrogate decision maker and/or consider a cardiology consult to discuss alternative strategies (such as watchman) -If starts AC, no need for ASA from a neurologic perspective. I see no need for Plavix currently from a neurologic perspective -continue atorva 40 -CTA: documented to have 50% L ICA stenosis, however on my calculation using NASCET criteria, it is less. 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 Will likely need PEG. consider NGT for alterative access in the meantime #seizure -recommend routine EEG as his aphasia does seen to be out of proportion to his infarct burden. would want to ensure no NCSE -it appears he was switched from CBZ to keppra during this admission. 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 ] NIHSS NIHSS Nursing Documentation NIHSS Nursing Documentation: NIHSS: Ischemic Stroke/TIA Start: 12/17/24 18:52 Text: For PCU Patients: NIH and Neuro Check every 4 Status: Active hours, PRN and with change in RN caregiver. Freq: Q12 Protocol: Activity Type Activity Date Activity User E-sign Co-sign Detail Recorded Client Recorded Date Recorded By Document 12/20/24 09:41 [id number] 12/20/24 09:46 12/20/24 09:41 NIH Stroke Scale [NIHSS] A score of 0 is normal or asymptomatic . Total possible score is 42. Inpatient: RN or Physician to activate a stroke alert for onset of new stroke symptoms or with NIHSS increase >/= 3 points. Following change in neurological status, NIHSS will be performed per physician order or more frequently PRN. -1a. Level of Consciousness 0 - Alert; keenly responsive -1b. LOC Questions 2 - Answers NEITHER question correctly -1c. LOC Commands 0 - Performs BOTH tasks correctly -2. Best Gaze 1 - Partial gaze palsy; -3. Visual 0 - No visual loss -4. Facial Palsy 1 - Minor paralysis ( flattened nasolabial fold , asymmetry on smiling) -5a. Left Arm 0 - No drift; arm holds 90 ( or 45) degrees for full 10 seconds -5b. Right Arm 0 - No drift; arm holds 90 ( or 45) degrees for full 10 seconds -6a. Left Leg 0 - No drift; leg holds 30- degree position for full 5 seconds -6b. Right Leg 0 - No drift; leg holds 30- degree position for full 5 seconds -7. Limb Ataxia 2 - Present in 2 limbs -8. Sensory 1 - Mild-to- moderate sensory loss; -9. Best Language 3 - Mute, global aphasia; -10. Dysarthria 2 - Severe dysarthria; -11. Extinction and Inattention 0 - No abnormality -Total 12 Query Text:A score of 0 is normal or asymptomatic. Total possible score is 42 . ED: Notify Physician for NIHSS increase by > / = 3 points. Inpatient: RN or Physician to activate a stroke alert for NIHSS increase of > / = 3 points. 12/20/24 1137 <Electronically signed by René Reno MD> Cosigner Signature (if applicable): CC: ~ Signed ADDENDUM by Dr. René Reno MD on 12/20/24 at 1153 Assessment and Plan: Stroke Assessment/Plan Also recommend evaluation for toxic/metabolic encephalopathy: tsh, b12, give high dose thiamine, evaluate for infectious etiologies (UA, CXR), delerium precautions, avoid deleriogenic medications, optimize sleep. 12/20/24 1153<Electronically signed by René Reno MD> Cosigner Signature (if applicable): cc: ~* Signed [facility] Work Phone: 1(353) [phone] Progress note Author Lisha Talamantes [facility] Note Date/Time December 19, 2024 4:09p m [facility] Medical Records Department [address] [place] [id number] Progress Note - Hospitalist 12/19/24 08 MR#: [id number] Acct: [id number] Name: PEDRO PABLO SIERRA Rep #:[id number] : 1950 74 From: Lisha Talamantes DO PCP: Dr. Daija Morton MD Status:ADM I N Location: [place] [address] Reason for Visit Reason for Visit: Difficulty speaking and left facial droop Subjective Subjective No specific issues overnight. Will start to bring down blood pressure slowly. Patient still with marked speech and swallowing issues. Objective Data Objective Data Vital Signs: Vital Signs Temp Pulse Resp BP Pulse Ox O2 Del Method O2 Flow Rate 97.6 F L 68 16 183/81 H 96 Room Air 2 12/19/24 07:15 12/19/24 07:15 12/19/24 07:15 12/19/24 07:15 12/19/24 07:15 12/19/24 07:15 12/19/24 06:00 Oxygen Flow Rate (L/min) 2 Oxygen Delivery Method Room Air Weight: 73 kg Body Mass Index (BMI) 24.5 Intake & Output: Intake and Output for Last 24 Hours 12/17/24 12/18/24 12/19/24 23:59 23:59 23:59 Intake Total 1100 / 1100 200 / 200 990 / 990 Output Total 1500 / 1500 350 / 350 Balance 1100 / 1000 -1300 / -1300 640 / 640 Lab / Micro Data 12/19/24 05:32 12/19/24 05:32 Labs: Laboratory Results - last 24 hr 12/18/24 10:40: WBC 10.4, RBC 4.62, Hgb 12.8 L, Hct 41.9, MCV 90.7, MCH 27.7, MCHC 30.5 L, RDW Std Deviation 45.7 H, RDW Coeff of Aly 13.7, Plt Count 386, MPV 9.9, Sodium 141, Potassium 4.2, Chloride 103, Carbon Dioxide 26.5, Anion Gap 12,BUN 22 H, Creatinine 1.06, Estim Creat Clear Calc 58.25, Est GFR (MDRD) Non-Af 73, BUN/Creatinine Ratio 20.6 H, Glucose 95, Calcium 9.7 12/19/24 05:32: WBC 7.4, RBC 4.32 L, Hgb 11.9 L, Hct 39.1 L, MCV 90.5, MCH 27.5,MCHC 30.4 L, RDW Std Deviation 44.8 H, RDW Coeff of Aly 13.6, Plt Count 375, MPV9.6, Immature Gran % (Auto) 0.400, Neut % (Auto) 81.3 H, Lymph % (Auto) 9.0 L, Wayne % (Auto) 6.6, Eos % (Auto) 1.9, Baso % (Auto) 0.8, Absolute Neuts (auto) 6.0, Absolute Lymphs (auto) 0.67 L, Nucleated RBC % 0, Sodium 141, Potassium 3.6, Chloride 101, Carbon Dioxide 27.6, Anion Gap 12, BUN 19, Creatinine 1.06, Estim Creat Clear Calc 58.25, Est GFR (MDRD) Non-Af 73, BUN/Creatinine Ratio 17.6, Glucose 109 H, Calcium 9.5, Total Bilirubin 0.24, AST 23, ALT 25, AlkalinePhosphatase 69, Total Protein 7.1, Albumin 4.3, Globulin 2.8, Albumin/Globulin Ratio 1.5 Radiography Diagnostic Testing: Radiology Impression Echocardiogram 12/18/24 07:27 Interpretation Summary Technically difficult study With limited views. Overall LV systolic function within normal. The estimated ejection fraction is 55???60 %. Previous study in 2023 as well showed technically difficult study with overall normal LV systolic function. Ordering Physician: Lisha Talamantes Referring Physician: Daija Morton Performed By: Susie Sands, RDCS, RVT Brain MRI 12/18/24 17:46 IMPRESSION: There is focal restricted diffusion in the left periventricular deep white matter with multiple foci with the largest measuring 1.2 by 0.9 cm with associated increased T2 signal, intermediate to decreased T1 signal, consistent with subacute infarct, image 17/26. There are punctate foci of restricted diffusion in the left precentral subcortical region which show associated increased T2, decreased T1 signal, consistent with subacute infarct, image 21/26. There is extensive abnormal increased T2 and FLAIR signal throughout the deep white matter, confluence in the periventricular regions, consistent with chronic ischemic change. There is a 3.1 x 1.5 cm arachnoid cyst at the medial left temporal tip. There is mucosal thickening in the right maxillary sinus. Reading Location: [facility] Physical Exam Const alert, no apparent distress and average body habitus; Negative for healthy appearing Constitutional Narrative: Older, white male, appears older than stated age, sitting up in a chair, appearscomfortable, nontoxic Orientation / Consciousness: confused HEENT normocephalic, head/scalp atraumatic and moist oral mucous membranes HEENT Narrative: Dentition is poor, Mallampati 2, no thrush Resp normal respiratory effort, no retractions and no use of accessory muscles Resp Narrative: Markedly diminished but clear Auscultation: wheezes; Negative for crackles or rhonchi Cardio regular rate, S1 normal heart sound, S2 normal heart sound, no murmurs, no rub, no gallops, no clicks and peripheral pulses 2+ throughout Cardio Narrative: Irregularly irregular with GI normal to inspection, nondistended, normoactive bowel sounds, soft to palpation and non-tender Extremity no clubbing, cyanosis or edema Extremity Narrative: Pedal radial pulses are 2+ Neuro moves all extremities Neuro Narrative: Patient with obvious global aphasia, seems to move all extremities symmetrically, left facial droop, right pupil is chronically abnormal Sensorium / Orientation: awake and alert Speech: Negative for speech normal Psych Psych Narrative: Call today Assessment & Plan Assessment/Plan (1) Acute CVA (cerebrovascular accident): (2) Facial droop: (3) Aphasia: PLAN: Plan Acute left MCA stroke - Likely cardioembolic as patient has history of atrial fibrillation and not able to be anticoagulated due to recurrent falls - Patient with recent lipid panel at the end of October which showed total cholesterol 140/LDL of 63/HDL 64 - Continue aspirin but transition to rectal - Continue atorvastatin 40 mg daily as p.o. intake allows - Continue Plavix 75 mg daily as p.o. intake allows - A1c was performed and found to be 5.9 - Ongoing deficits include global aphasia, right facial droop and poorly cooperative due to aphasia - So allow for permissive hypertension with goal blood pressure being about 160- 180 for the next 48 hours will start labetalol IV every 6 hours scheduled - Continue speech therapy--> highly concerned patient may need PEG tube -Will make patient strict n.p.o. - PT/OT are following thus far patient is doing quite poorly - Neurology consultation noted-appreciate input and assistance Dysphagia - No significant clinical improvement since yesterday -Continue speech therapy - Remains n.p.o. - Continue IV fluids - Consult GI for PEG placement History of paroxysmal atrial fibrillation - Start IV labetalol - Patient has not been on anticoagulation candidate thus far as cardioembolic stroke due to ongoing issues with his balance and recurrent falls COPD with recent hospitalization for exacerbation - Will continue prednisone but transition to Solu-Medrol 40 daily with slow taper - Continue aerosols as ordered Chronic normocytic anemia - Counts remain stable - Monitor CKD stage II - Creatinine stable - Follow Generalized weakness/debility/failure to thrive -Patient with ongoing chronic issues with debility and weakness as well as failure to thrive - Was recently just discharged home with home health care - Given acute infarct will need placement at the time of discharge Osteoporosis -Restart alendronate at discharge -Hold home cholecalciferol Seizure disorder - Hold home carbamazepine - Continue Keppra 1000 mg IV twice daily CAD/essential hypertension/hyperlipidemia/history of stroke/PAD -Blood pressure is markedly elevated on presentation however it does not appear patient been compliant with his medications - Continue home nifedipine 90 mg daily - Continue home metoprolol 25 mg p.o. daily - Continue home losartan 100 mg daily - Continue home clonidine 0.1 mg p.o. twice daily - Continue as needed hydralazine BPH with obstruction -Hold home Flomax -Hold home finasteride GERD -Continue PPI transition IV Tobacco abuse -continue nicotine patch -Recommend cessation Depression -Hold home sertraline DVT prophylaxis -Subcu Lovenox daily CODE STATUS - Full code Charges/Coding Visit Charges Inpatient E&M: 45032 Subs Hosp L2 NIHSS NIHSS Nursing Documentation NIHSS Nursing Documentation: NIHSS: Ischemic Stroke/TIA Start: 12/17/24 18:52 Text: For PCU Patients: NIH and Neuro Check every 4 Status: Active hours, PRN and with change in RN caregiver. Freq: [id number] Protocol: Activity Type Activity Date Activity User E-sign Co-sign Detail Recorded Client Recorded Date Recorded By Document 12/19/24 07:15 [id number] 12/19/24 07:43 12/19/24 07:15 NIH Stroke Scale [NIHSS] A score of 0 is normal or asymptomatic . Total possible score is 42. Inpatient: RN or Physician to activate a stroke alert for onset of new stroke symptoms or with NIHSS increase >/= 3 points. Following change in neurological status, NIHSS will be performed per physician order or more frequently PRN. -1a. Level of Consciousness 0 - Alert; keenly responsive -1b. LOC Questions 2 - Answers NEITHER question correctly -1c. LOC Commands 0 - Performs BOTH tasks correctly -2. Best Gaze 0 - Normal -3. Visual 0 - No visual loss -4. Facial Palsy 1 - Minor paralysis ( flattened nasolabial fold , asymmetry on smiling) -5a. Left Arm 0 - No drift; arm holds 90 ( or 45) degrees for full 10 seconds -5b. Right Arm 0 - No drift; arm holds 90 ( or 45) degrees for full 10 seconds -6a. Left Leg 0 - No drift; leg holds 30- degree position for full 5 seconds -6b. Right Leg 0 - No drift; leg holds 30- degree position for full 5 seconds -7. Limb Ataxia 2 - Present in 2 limbs -8. Sensory 1 - Mild-to- moderate sensory loss; -9. Best Language 3 - Mute, global aphasia; -10. Dysarthria 2 - Severe dysarthria; -11. Extinction and Inattention 0 - No abnormality -Total 11 Query Text:A score of 0 is normal or asymptomatic. Total possible score is 42 . ED: Notify Physician for NIHSS increase by > / = 3 points. Inpatient: RN or Physician to activate a stroke alert for NIHSS increase of > / = 3 points. Coma Scale [Assess] -Eye Opening Spontaneous -Motor Obeys Commands -Verbal Inappropriate [Total] -Coma Scale Total 13 12/19/24 1609 <Electronically signed by Lisha Talamantes DO> Cosigner Signature (if applicable): CC: ~ Signed [facility] Work Phone: 1(290) 882-897107-02-2025 Progress note Author Lisha Talamantes [facility] Note Date/Time December 18, 2024 2:59p m [facility] Medical Records Department [address] [place] [id number] Progress Note - Hospitalist 12/18/24 1445 MR#: [id number] Acct: [id number] Name: PEDRO PABLO SIERRA Rep #:[id number] : 1950 74 From: Lisha Talamantes DO PCP: Dr. Daija Morton MD Status:ADM I NO Location: [place] [address] Reason for Visit Reason for Visit: Diagnoses Cerebral infarction, unspecified (12/17/24) Subjective Subjective Patient with fluctuating NIH is due to difficulty with assessment secondary to global aphasia. No acute issues through the night Objective Data Objective Data Vital Signs: Vital Signs Temp Pulse Resp BP Pulse Ox O2 Del Method O2 Flow Rate 97.8 F 67 16 209/85 H 95 Nasal Cannula 2 12/18/24 13:40 12/18/24 13:40 12/18/24 13:40 12/18/24 13:40 12/18/24 13:40 12/18/24 13:50 12/18/24 13:40 Oxygen Flow Rate (L/min) 2 Oxygen Delivery Method Nasal Cannula Weight: 73 kg Body Mass Index (BMI) 24.5 Intake & Output: Intake and Output for Last 24 Hours 12/16/24 12/17/24 12/18/24 23:59 23:59 23:59 Intake Total 1100 / 1100 100 / 100 Output Total 900 / 900 Balance 1100 / 1000 -800 / -800 Lab / Micro Data 12/18/24 10:40 12/18/24 10:40 Labs: Laboratory Results - last 24 hr 12/17/24 16:00: WBC 8.5, RBC 4.45 L, Hgb 12.4 L, Hct 39.6 L, MCV 89.0, MCH 27.9,MCHC 31.3 L, RDW Std Deviation 45.6 H, RDW Coeff of Aly 14.0, Plt Count 417, MPV10.0, Immature Gran % (Auto) 0.400, Neut % (Auto) 77.5 H, Lymph % (Auto) 12.1 L,Wayne % (Auto) 7.8, Eos % (Auto) 1.1, Baso % (Auto) 1.1 H, Absolute Neuts (auto) 6.6, Absolute Lymphs (auto) 1.03, Nucleated RBC % 0, PT 12.8, INR 0.9, APTT 24.2, Sodium 142, Potassium 3.6, Chloride 104, Carbon Dioxide 25.5, Anion Gap 13, BUN 31 H, Creatinine 1.18, Estim Creat Clear Calc 52.33, Est GFR (MDRD) Non-Af 64, BUN/Creatinine Ratio 26.4 H, Glucose 137 H, Hemoglobin A1c 5.9 H, Calcium9.9, Troponin T High Sens 27 H, TSH 3.380 12/17/24 18:15: Troponin T Hi Sens 2 Hr 23 H 12/17/24 19:55: Troponin T Hi Sens 4Hr 23 H 12/18/24 10:40: WBC 10.4, RBC 4.62, Hgb 12.8 L, Hct 41.9, MCV 90.7, MCH 27.7, MCHC 30.5 L, RDW Std Deviation 45.7 H, RDW Coeff of Aly 13.7, Plt Count 386, MPV 9.9, Sodium 141, Potassium 4.2, Chloride 103, Carbon Dioxide 26.5, Anion Gap 12,BUN 22 H, Creatinine 1.06, Estim Creat Clear Calc 58.25, Est GFR (MDRD) Non-Af 73, BUN/Creatinine Ratio 20.6 H, Glucose 95, Calcium 9.7 Radiography Diagnostic Testing: Radiology Impression Brain CT 12/17/24 15:53 IMPRESSION: 1. Cerebral atrophy. 2. No evidence of acute intracranial pathology. 3. Other findings as noted. Findings were called to the [facility] emergency department on 12/17/2024 at 4:35 p.m. Reading Location: [facility] Head/Neck CTA 12/17/24 15:53 IMPRESSION: Right ICA stenosis of 75%. Left ICA stenosis of 50%. Additional atherosclerosis as above. Biapical pulmonary scarring and emphysema. Reading Location: [id number] Chest X-Ray 12/17/24 15:54 IMPRESSION: Hyperaerated lungs which can suggest COPD. Stable scarring. Reading Location: [place] [address] Echocardiogram 12/18/24 07:27 Interpretation Summary Technically difficult study With limited views. Overall LV systolic function within normal. The estimated ejection fraction is 55???60 %. Previous study in 2023 as well showed technically difficult study with overall normal LV systolic function. Ordering Physician: Lisha Talamantes Referring Physician: Daija Morton Performed By: Susie Sands, RDCS, RVT Physical Exam Const alert, no apparent distress and average body habitus; Negative for healthy appearing Constitutional Narrative: Older, white male, appears older than stated age, lying in bed, getting blood drawn, nursing at bedside, patient somewhat agitated, unable to consistently follow commands but moves all extremities without difficulty General Appearance: uncooperative Orientation / Consciousness: confused HEENT head/scalp atraumatic, moist oral mucous membranes and oropharynx normal Head and Scalp: normocephalic Resp normal respiratory effort, no retractions and no use of accessory muscles Resp Narrative: Scattered inspiratory and expiratory wheezes Auscultation: wheezes; Negative for crackles or rhonchi Cardio regular rate, regular rhythm, S1 normal heart sound, S2 normal heart sound, no murmurs, no rub, no gallops and no clicks GI normal to inspection, nondistended, normoactive bowel sounds, soft to palpation and non-tender Extremity no clubbing, cyanosis or edema Extremity Narrative: Pedal radial pulses are 2+ Neuro moves all extremities Neuro Narrative: Patient with obvious global aphasia, seems to move all extremities symmetrically, left facial droop, right pupil is chronically abnormal Sensorium / Orientation: awake and alert Speech: Negative for speech normal Psych Psych Narrative: Agitated Assessment & Plan Assessment/Plan (1) Acute CVA (cerebrovascular accident): (2) Facial droop: (3) Aphasia: PLAN: Plan Acute left MCA stroke - Likely cardioembolic as patient has history of atrial fibrillation and not able to be anticoagulated due to recurrent falls - Patient with recent lipid panel at the end of October which showed total cholesterol 140/LDL of 63/HDL 64 - Continue aspirin but transition to rectal - Continue atorvastatin 40 mg daily as p.o. intake allows - Continue Plavix 75 mg daily as p.o. intake allows - A1c was performed and found to be 5.9 - Resolving deficits include global aphasia, right facial droop and poorly cooperative due to aphasia - Will allow for permissive hypertension currently with gradual normalization - Continue speech therapy--> highly concerned patient may need PEG tube -Will make patient strict n.p.o. - PT/OT to evaluate - Neurology consultation noted-appreciate input and assistance History of paroxysmal atrial fibrillation - Okay to hold beta-joel - Patient has not been on anticoagulation candidate thus far as cardioembolic stroke due to ongoing issues with his balance and recurrent falls COPD with recent hospitalization for exacerbation - Will continue prednisone but transition to Solu-Medrol 40 daily with slow taper - Continue aerosols as ordered Chronic normocytic anemia - Counts remain stable - Monitor CKD stage II - Creatinine stable - Follow Generalized weakness/debility/failure to thrive -Patient with ongoing chronic issues with debility and weakness as well as failure to thrive - Was recently just discharged home with home health care - Given acute infarct will need placement at the time of discharge Osteoporosis -Restart alendronate at discharge -Hold home cholecalciferol Seizure disorder -Hold home carbamazepine - Start Keppra 1000 mg IV twice daily CAD/essential hypertension/hyperlipidemia/history of stroke/PAD -Blood pressure is markedly elevated on presentation however it does not appear patient been compliant with his medications - Continue home nifedipine 90 mg daily - Continue home metoprolol 25 mg p.o. daily - Continue home losartan 100 mg daily - Continue home clonidine 0.1 mg p.o. twice daily - Continue as needed hydralazine BPH with obstruction -Hold home Flomax -Hold home finasteride GERD -Continue PPI transition IV Tobacco abuse -continue nicotine patch -Recommend cessation Depression -Hold home sertraline DVT prophylaxis -Subcu Lovenox daily CODE STATUS - Full code Charges/Coding Visit Charges Inpatient E&M: 45736 Subs Hosp L2 NIHSS NIHSS Nursing Documentation NIHSS Nursing Documentation: NIHSS: Ischemic Stroke/TIA Start: 12/17/24 18:52 Text: For PCU Patients: NIH and Neuro Check every 4 Status: Active hours, PRN and with change in RN caregiver. Freq: [id number] Protocol: Activity Type Activity Date Activity User E-sign Co-sign Detail Recorded Client Recorded Date Recorded By Document 12/18/24 13:40 [id number] 12/18/24 13:43 12/18/24 13:40 NIH Stroke Scale [NIHSS] A score of 0 is normal or asymptomatic . Total possible score is 42. Inpatient: RN or Physician to activate a stroke alert for onset of new stroke symptoms or with NIHSS increase >/= 3 points. Following change in neurological status, NIHSS will be performed per physician order or more frequently PRN. -1a. Level of Consciousness 0 - Alert; keenly responsive -1b. LOC Questions 1 - Answers ONE question correctly -1c. LOC Commands 0 - Performs BOTH tasks correctly -2. Best Gaze 0 - Normal -3. Visual 0 - No visual loss -4. Facial Palsy 1 - Minor paralysis ( flattened nasolabial fold , asymmetry on smiling) -5a. Left Arm 0 - No drift; arm holds 90 ( or 45) degrees for full 10 seconds -5b. Right Arm 1 - Drift; arm drifts downward but doesn?t hit the bed -6a. Left Leg 0 - No drift; leg holds 30- degree position for full 5 seconds -6b. Right Leg 1 - Drift; leg falls by the end of 5- seconds, but does not hit bed -7. Limb Ataxia 2 - Present in 2 limbs -8. Sensory 0 - Normal; no sensory loss -9. Best Language 3 - Mute, global aphasia; -10. Dysarthria 2 - Severe dysarthria; -11. Extinction and Inattention 0 - No abnormality -Total 11 Query Text:A score of 0 is normal or asymptomatic. Total possible score is 42 . ED: Notify Physician for NIHSS increase by > / = 3 points. Inpatient: RN or Physician to activate a stroke alert for NIHSS increase of > / = 3 points. Coma Scale [Assess] -Eye Opening Spontaneous -Motor Obeys Commands -Verbal Incomprehensibl e [Total] -Coma Scale Total 12 12/18/24 1840 <Electronically signed by Lisha Talamantes DO> Cosigner Signature (if applicable): CC: ~ Signed [facility] Work Phone: 1(432) 807-625407-02-2025 Consult note Author Amy Chun [facility] Note Date/Time December 18, 2024 1:13p m [facility] Medical Records Department [address] [place] [address] Consultation - Neurology 12/18/24 1249 MR#: [id number] Acct: [id number] Name: PEDRO PABLO SIERRA Rep #:[id number] : 1950 74 From: Amy Chun MD PCP: Dr. Daija Morton MD Status:ADM I NO Location: [place] [address] Assessment and Plan: Stroke Assessment/Plan PEDRO PABLO SIERRA is a 74 M with a history of atrial fibrillation, HTN, COPD exacerbation who presents for evaluation of aphasia and right facial droop from left MCA stroke from atrial fibrillation (not on anticoagulation) Neurological examination shows Global aphasia, right facial droop, poorly cooperative but moved all extremities. Neuroimaging shows MRI: Left MCA stroke. CTA: R ICA 75% and left ICA 50% stenosis Continue ASA and Plavix If his gait is stable can be started on AC. If he is unstable then unfortunatelyhe is not a candidate for AC. Continue statin to keep LDL <70 Please obtain LDL, HbA1C. HTN: Permissive HTN acutely and gradual normalization half-way Speech and swallow evaluation PT, OT evaluation Thanks for consult. Please call with questions HPI Consult Data Date of Consult: 12/18/24 HPI Narrative HPI Narrative: PEDRO PABLO SIERRA, is a 74 M who presents who presented to [facility] on 12/17/2024 with dysarthria and right-sided facial droop. he was recently hospitalized here for acute on chronic hypoxic and hypercapnic respiratory failure secondary to a COPD exacerbation with good improvement with IV steroids and scheduled nebulizers and was discharged home on a prolonged prednisone taper. Family notes that was doing fine until this afternoon when he acutely developed a right-sided facial droop with drooling and had significant difficulty with speaking. With the symptoms, they called EMS to bring him in. Last known well was at noon. Teleneurology noted his NIHSS score was 10 consistent with a moderate stroke. Unfortunately, he was outside the window forTNK. He has history of A-fib and was previously on Coumadin but has been off nowsince at least March 2024 due to history of falls. Family thought the patient was still on Coumadin for A-fib, even though from our records he has been off since at least March of last year. Most recent INR was 0.9 on 12/17. EKG in the ED showed rate controlled A-fib. CT brain was unremarkable. CTA head/neck showed right ICA stenosis of 75% and left ICA stenosis of 50%, no other acute findings. [facility] Medical History Weakness Debility Failure to [...] Yes Type: coffee Number of servings: 3 Vital Signs Vital Signs Vital Signs: 12/17/24 15:53 12/17/24 16:11 12/17/24 16:21 Temperature 98.5 F 98.5 F Temperature Source Oral Oral Pulse Rate 68 70 Respiratory Rate 20 H 18 Respiratory Effort Respiratory Depth Respiratory Pattern Blood Pressure 184/76 H 184/70 H Blood Pressure Mean 112 108 Blood Pressure Source Blood Pressure Position Blood Pressure Location Pulse Ox 98 97 98 Oxygen Delivery Method Room Air Nasal Cannula Nasal Cannula Oxygen Flow Rate (L/min) 2 2 12/17/24 16:23 12/17/24 16:30 12/17/24 17:00 Temperature Temperature Source Pulse Rate 67 69 71 Respiratory Rate Respiratory Effort Respiratory Depth Respiratory Pattern Blood Pressure 173/74 H 169/83 H 178/80 H Blood Pressure Mean 107 111 112 Blood Pressure Source Blood Pressure Position Blood Pressure Location Pulse Ox 98 98 98 Oxygen Delivery Method Nasal Cannula Oxygen Flow Rate (L/min) 2 12/17/24 17:30 12/17/24 18:00 12/17/24 18:14 Temperature 98.5 F Temperature Source Pulse Rate 65 64 64 Respiratory Rate 16 Respiratory Effort Respiratory Depth Respiratory Pattern Blood Pressure 169/66 H 197/91 H 197/91 H Blood Pressure Mean 100 126 126 Blood Pressure Source Blood Pressure Position Blood Pressure Location Pulse Ox 99 99 99 Oxygen Delivery Method Nasal Cannula Nasal Cannula Oxygen Flow Rate (L/min) 2 2 12/17/24 18:56 12/17/24 19:50 12/17/24 19:50 Temperature 98.5 F Temperature Source Oral Pulse Rate 83 68 Respiratory Rate 22 H 28 H Respiratory Effort Respiratory Depth Respiratory Pattern Tachypnea Blood Pressure 201/119 H Blood Pressure Mean 146 Blood Pressure Source Monitor Blood Pressure Position Semi-Fowlers Blood Pressure Location Right Arm Pulse Ox 97 96 Oxygen Delivery Method Nasal Cannula Nasal Cannula Oxygen Flow Rate (L/min) 2 2 12/17/24 22:00 12/17/24 22:00 12/18/24 02:00 Temperature 97.0 F L 97.0 F L Temperature Source Temporal Temporal Pulse Rate 63 79 Respiratory Rate 18 18 Respiratory Effort Normal Respiratory Depth Normal Respiratory Pattern Normal Blood Pressure 164/103 H 155/116 H Blood Pressure Mean 123 129 Blood Pressure Source Monitor Monitor Blood Pressure Position Semi-Fowlers Semi-Fowlers Blood Pressure Location Right Arm Right Arm Pulse Ox 96 98 Oxygen Delivery Method Nasal Cannula Nasal Cannula Nasal Cannula Oxygen Flow Rate (L/min) 2 2 12/18/24 06:00 12/18/24 07:04 12/18/24 07:04 Temperature 97.0 F L Temperature Source Temporal Pulse Rate 71 69 Respiratory Rate 18 20 H Respiratory Effort Respiratory Depth Respiratory Pattern Tachypnea Blood Pressure 176/82 H Blood Pressure Mean 113 Blood Pressure Source Monitor Blood Pressure Position Semi-Fowlers Blood Pressure Location Right Arm Pulse Ox 97 97 Oxygen Delivery Method Nasal Cannula Nasal Cannula Oxygen Flow Rate (L/min) 2 2 12/18/24 07:30 12/18/24 07:40 12/18/24 10:21 Temperature 97.7 F L Temperature Source Axillary Pulse Rate 63 Respiratory Rate 20 H Respiratory Effort Normal Non-Labored Respiratory Depth Normal Respiratory Pattern Normal Blood Pressure 192/92 H Blood Pressure Mean 125 Blood Pressure Source Monitor Blood Pressure Position Semi-Fowlers Blood Pressure Location Right Arm Pulse Ox 98 Oxygen Delivery Method Room Air Nasal Cannula Oxygen Flow Rate (L/min) 2 2 12/18/24 10:30 Temperature 97.8 F Temperature Source Axillary Pulse Rate 61 Respiratory Rate 18 Respiratory Effort Respiratory Depth Respiratory Pattern Blood Pressure 199/94 H Blood Pressure Mean 129 Blood Pressure Source Monitor Blood Pressure Position Semi-Fowlers Blood Pressure Location Right Arm Pulse Ox 98 Oxygen Delivery Method Nasal Cannula Oxygen Flow Rate (L/min) 2 Weight Weight: 73 kg Body Mass Index (BMI) 24.5 EEG Results Procedure Details EEG Procedure Details: PEDRO PABLO SIERRA is a 74 year old M with a past medical history of , who presents for evaluation of Electroencephalogram on DATE at TIME Physical Exam Neuro Neuro Narrative: Asleep, arousable, poorly cooperative, globally aphasic Right facial droop Moves all extremities but poor effort at present (per RN he walked with walker this am and held his extremities antigravity) Lab / Micro Data 12/18/24 10:40 12/18/24 10:40 Labs: Laboratory Results - last 24 hr 12/17/24 16:00: WBC 8.5, RBC 4.45 L, Hgb 12.4 L, Hct 39.6 L, MCV 89.0, MCH 27.9,MCHC 31.3 L, RDW Std Deviation 45.6 H, RDW Coeff of Aly 14.0, Plt Count 417, MPV10.0, Immature Gran % (Auto) 0.400, Neut % (Auto) 77.5 H, Lymph % (Auto) 12.1 L,Wayne % (Auto) 7.8, Eos % (Auto) 1.1, Baso % (Auto) 1.1 H, Absolute Neuts (auto) 6.6, Absolute Lymphs (auto) 1.03, Nucleated RBC % 0, PT 12.8, INR 0.9, APTT 24.2, Sodium 142, Potassium 3.6, Chloride 104, Carbon Dioxide 25.5, Anion Gap 13, BUN 31 H, Creatinine 1.18, Estim Creat Clear Calc 52.33, Est GFR (MDRD) Non-Af 64, BUN/Creatinine Ratio 26.4 H, Glucose 137 H, Hemoglobin A1c 5.9 H, Calcium9.9, Troponin T High Sens 27 H, TSH 3.380 12/17/24 18:15: Troponin T Hi Sens 2 Hr 23 H 12/17/24 19:55: Troponin T Hi Sens 4Hr 23 H 12/18/24 10:40: WBC 10.4, RBC 4.62, Hgb 12.8 L, Hct 41.9, MCV 90.7, MCH 27.7, MCHC 30.5 L, RDW Std Deviation 45.7 H, RDW Coeff of Aly 13.7, Plt Count 386, MPV 9.9, Sodium 141, Potassium 4.2, Chloride 103, Carbon Dioxide 26.5, Anion Gap 12,BUN 22 H, Creatinine 1.06, Estim Creat Clear Calc 58.25, Est GFR (MDRD) Non-Af 73, BUN/Creatinine Ratio 20.6 H, Glucose 95, Calcium 9.7 Imaging Radiology Impression Brain CT 12/17/24 15:53 IMPRESSION: 1. Cerebral atrophy. 2. No evidence of acute intracranial pathology. 3. Other findings as noted. Findings were called to the [facility] emergency department on 12/17/2024 at 4:35 p.m. Reading Location: [id number] Head/Neck CTA 12/17/24 15:53 IMPRESSION: Right ICA stenosis of 75%. Left ICA stenosis of 50%. Additional atherosclerosis as above. Biapical pulmonary scarring and emphysema. Reading Location: [id number] Chest X-Ray 12/17/24 15:54 IMPRESSION: Hyperaerated lungs which can suggest COPD. Stable scarring. Reading Location: [id number] Active Medications Active Medications Active Medications: Current Medications Generic Name Dose Route Start Last Admin Trade Name Freq PRN Reason Stop Dose Admin Acetaminophen 650 mg 12/17/24 18:52 Acetaminophen 325 Mg Tablet PO Q6H PRN PRN Pain 1-10 Or Fever>100.7 Albuterol Sulfate 2.5 mg 12/17/24 19:04 Albuterol 2.5 Mg/3 Ml Vial.Neb. INHALATION Q4H PRN DYSPNEA/WHEEZING/SOB Albuterol/Ipratropium 3 ml 12/17/24 19:30 12/18/24 10:39 Ipratropium/Albuterol Sulfate 3 Ml Ampul.Neb INHALATION 3 ml Q4HWA.RT LEON Administration Aspirin 300 mg 12/18/24 11:00 Aspirin 300 Mg Suppository RC DAILY LEON Atorvastatin Calcium 40 mg 12/17/24 22:00 12/17/24 20:54 Atorvastatin Calcium 40 Mg Tablet PO Not Given QHS LEON Carbamazepine 200 mg 12/17/24 22:00 12/18/24 09:52 Carbamazepine 200 Mg Cpmp.12hr PO Not Given BID LEON Cholecalciferol 50 mcg 12/18/24 10:00 12/18/24 09:52 Cholecalciferol (Vit D3) 25 Mcg Tablet (1,000 Units) PO Not Given DAILY [facility] Clopidogrel Bisulfate 75 mg 12/18/24 10:00 12/18/24 09:52 Clopidogrel Bisulfate 75 Mg Tablet PO Not Given DAILY [facility] Finasteride 5 mg 12/18/24 10:00 12/18/24 09:52 Finasteride 5 Mg Tablet PO Not Given DAILY [facility] Gabapentin 100 mg 12/18/24 10:00 12/18/24 09:52 Gabapentin 100 Mg Capsule PO Not Given DAILY LEON Hydralazine HCl 5 mg 12/17/24 18:52 Hydralazine 20 Mg/Ml Vial IV 12/18/24 18:52 Q30M PRN maintain BP parameters with HR <60 Sodium Chloride 250 mls @ 15 mls/hr 12/17/24 19:51 IV .[id number] PRN Saline Flush Sodium Chloride 250 mls @ 15 mls/hr 12/17/24 19:51 IV .[id number] PRN Additional IVPB Infusion Levetiracetam 1,000 mg in 100 mls @ 400 mls/hr 12/17/24 22:00 12/18/24 11:00 IV Infused Q12 LEON Infusion Labetalol HCl 20 mg 12/17/24 15:53 Labetalol 20 Mg/4 Ml Vial IV 12/18/24 15:53 X1 PRN BLOOD PRESSURE Labetalol HCl 10 - 20 mg 12/17/24 18:52 Labetalol 20 Mg/4 Ml Vial IV 12/18/24 18:52 Q10M PRN PRN maintain BP parameters with HR >/=60 Melatonin 3 mg 12/17/24 18:52 Melatonin 3 Mg Tablet PO QHS PRN PRN INSOMNIA Mirtazapine 15 mg 12/17/24 22:00 12/17/24 20:54 Mirtazapine 15 Mg Tablet PO Not Given QHS LEON Ondansetron HCl 4 mg 12/17/24 18:52 Ondansetron 4 Mg/2 Ml Vial IV Q8H PRN PRN NAUSEA/VOMITING Pantoprazole Sodium 40 mg 12/18/24 10:00 12/18/24 09:52 Pantoprazole Sodium 40 Mg Tablet PO Not Given DAILY LEON Prednisone 40 mg 12/18/24 08:00 12/18/24 07:49 Prednisone 20 Mg Tablet PO Not Given BREAKFAST LEON Senna/Docusate Sodium 1 tablet 12/17/24 18:52 Senna/Docusate Sodium 1 Tablet PO BID PRN PRN Constipation Sertraline HCl 100 mg 12/18/24 10:00 12/18/24 09:52 Sertraline 100 Mg Tablet PO Not Given DAILY LEON Sodium Chloride 10 - 40 ml 12/17/24 19:51 12/18/24 10:33 0.9% Saline Lock 10 Ml Syringe IV 10 ml UD PRN Administration SALINE FLUSH Tamsulosin HCl 0.4 mg 12/18/24 22:00 Tamsulosin Hcl 0.4 Mg Capsule PO QHS [facility] NIHSS NIHSS Nursing Documentation NIHSS Nursing Documentation: NIHSS: Ischemic Stroke/TIA Start: 12/17/24 18:52 Text: For PCU Patients: NIH and Neuro Check every 4 Status: Active hours, PRN and with change in RN caregiver. Freq: [id number] Protocol: Activity Type Activity Date Activity User E-sign Co-sign Detail Recorded Client Recorded Date Recorded By Document 12/18/24 10:30 [id number] 12/18/24 10:48 12/18/24 10:30 NIH Stroke Scale [NIHSS] A score of 0 is normal or asymptomatic . Total possible score is 42. Inpatient: RN or Physician to activate a stroke alert for onset of new stroke symptoms or with NIHSS increase >/= 3 points. Following change in neurological status, NIHSS will be performed per physician order or more frequently PRN. -1a. Level of Consciousness 0 - Alert; keenly responsive -1b. LOC Questions 1 - Answers ONE question correctly -1c. LOC Commands 0 - Performs BOTH tasks correctly -2. Best Gaze 0 - Normal -3. Visual 0 - No visual loss -4. Facial Palsy 1 - Minor paralysis ( flattened nasolabial fold , asymmetry on smiling) -5a. Left Arm 0 - No drift; arm holds 90 ( or 45) degrees for full 10 seconds -5b. Right Arm 0 - No drift; arm holds 90 ( or 45) degrees for full 10 seconds -6a. Left Leg 0 - No drift; leg holds 30- degree position for full 5 seconds -6b. Right Leg 0 - No drift; leg holds 30- degree position for full 5 seconds -7. Limb Ataxia 2 - Present in 2 limbs -8. Sensory 1 - Mild-to- moderate sensory loss; -9. Best Language 3 - Mute, global aphasia; -10. Dysarthria 2 - Severe dysarthria; -11. Extinction and Inattention 0 - No abnormality -Total 10 Query Text:A score of 0 is normal or asymptomatic. Total possible score is 42 . ED: Notify Physician for NIHSS increase by > / = 3 points. Inpatient: RN or Physician to activate a stroke alert for NIHSS increase of > / = 3 points. Coma Scale [Assess] -Eye Opening Spontaneous -Motor Obeys Commands -Verbal Incomprehensibl e [Total] -Coma Scale Total 12 NIHSS 1a. Level of Consciousness: 0 - Alert; keenly responsive 1b. LOC Questions: 2 - Answers NEITHER question correctly 1c. LOC Commands: 2 - Performs NEITHER task correctly 2. Best Gaze: 0 - Normal 3. Visual: 0 - No visual loss 4. Facial Palsy: 2 - Partial paralysis (total or near-total paralysis of lower face) 5a. Left Arm: 1 - Drift; arm drifts downward but doesn?t hit the bed 5b. Right Arm: 1 - Drift; arm drifts downward but doesn?t hit the bed 6a. Left Le - Drift; leg falls by the end of 5-seconds, but does not hit bed 6b. Right Le - Drift; leg falls by the end of 5-seconds, but does not hit bed 7. Limb Ataxia: 0 - Absent 8. Sensory: 0 - Normal; no sensory loss 9. Best Language: 3 - Mute, global aphasia; 10. Dysarthria: 2 - Severe dysarthria; 11. Extinction and Inattention: 0 - No abnormality Total: 15 12/18/24 1313 <Electronically signed by Amy Chun MD> Cosigner Signature (if applicable): CC: Dr. Daija Morton MD~ Signed [facility] Work Phone: 1(370) 561-797207-01-2025 History and physical note [facility] Note Date/Time December 17, 2024 7:17p [facility] Medical Records Department [address] [place] [address] H&P Exam - Hospitalist 12/17/24 1736 MR#: [id number] Acct: [id number] Name: ARIEL SIERRAJAYY Pierce Rep #:[id number] : 1950 74 From: Roman randall DO PCP: Dr. Daija Morton MD Status:ADM I NO Location: [place] [address] HPI - General General Date of Admission: 12/17/24 Date of Service: 12/17/24 Chief Complaint: Dysarthria and right-sided facial droop HPI Trent SIERRA, is a 74 M who presented to [facility] ED on 12/17/2024 with dysarthria and right-sided facial droop. Patient was recently hospitalized here from 12/13-12/16 for acute on chronic hypoxic and hypercapnic respiratory failure secondary to a COPD exacerbation. He had good improvement with IV steroids and scheduled nebulizers and was discharged home on a prolongedprednisone taper. Family notes that was doing fine until this afternoon when heacutely developed a right- sided facial droop with drooling and had significant difficulty with speaking. With the symptoms, they called EMS to bring him in. Last known well was at noon. He did arrive as a stroke alert. Teleneurology noted his NIHSS score was 10 consistent with a moderate stroke. Unfortunately, he was outside the window for TNK. Importantly, patient has history of A-fib. He previously was on Coumadin but has been off now since at least March 2024 due to history of falls. Most recent INR was 1.0 on 12/14. EKG in the ED showedrate controlled A-fib. CT brain was unremarkable. CTA head/neck showed right ICA stenosis of 75% and left ICA stenosis of 50%, no other acute findings. His blood pressure was consistently running in the 190s to 200s systolic in the ED. CBC and BMP were stable from previous. Given high concern for stroke, hospitalist was contacted for admission. I saw the patient at bedside in the ED, and daughter were present. Patient was sitting back in bed and making eye contact with me but had significant difficulty with speaking. 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 Did have a right facial droop noted. On exam he also had right sided leg weakness worse than the left noted, though unclear if this is more chronic or acute. On discussion with family, they told me that they thought the patient was still on Coumadin for A-fib, even though from our records he has been off since at least March of last year. They note prior history of TIA for patient but no history of stroke. Patient also did have moderate wheezing noted bilaterally on exam with mild increased work of breathing noted on 2 L nasal cannula. Family noted that patient had not taken his dose of prednisone today and last breathing treatment was this morning. No other new concerns at this time. Will be admitted for further management. [facility] Medical History Weakness Debility Failure to [...] Type: coffee Number of servings: 3 ROS Review of Systems ROS Unobtainable: due to mental status Vital Signs Vital Signs Vital Signs: 12/17/24 15:53 12/17/24 16:11 12/17/24 [...] Nasal Cannula Oxygen Flow Rate (L/min) 2 Weight Weight: 73 kg Body Mass Index (BMI) 24.5 Physical Exam Const alert, no apparent distress and average body habitus Constitutional Narrative: Elderly male, alert, sitting back fairly comfortably in bed, mildly anxious appearing, unable to answer questions due to dysarthria, otherwise in no acute distress. General Appearance: cooperative and comfortable HEENT normocephalic, head/scalp atraumatic, hearing grossly normal bilaterally, nasal mucous membranes and turbinates normal and moist oral mucous membranes Eyes Eyes Narrative: Right eye blindness noted. Left eye with EOMs intact bilaterally and conjunctiva normal. Neck full ROM Chest inspection of chest normal Resp Resp Narrative: Mild increased work of breathing noted on 2 L nasal cannula. Moderate wheezing noted bilaterally but otherwise good air movement throughout. No crackles noted. Cardio no murmurs and peripheral pulses 2+ throughout Cardio Narrative: A-fib, rate controlled. GI normal to inspection, nondistended, normoactive bowel sounds, soft to palpation,non-tender and non-distended Back/Spine normal ROM Extremity normal to inspection and no pedal edema Skin no rashes or lesions noted Neuro Neuro Narrative: Right-sided facial droop with severe dysarthria noted. Right leg weakness worsethan left noted. Results Lab / Micro Data 12/17/24 16:00 12/17/24 16:00 Labs: Laboratory Results - last 24 hr 12/17/24 16:00: WBC 8.5, RBC 4.45 L, Hgb 12.4 L, Hct 39.6 L, MCV 89.0, MCH 27.9,MCHC 31.3 L, RDW Std Deviation 45.6 H, RDW Coeff of Aly 14.0, Plt Count 417, MPV10.0, Immature Gran % (Auto) 0.400, Neut % (Auto) 77.5 H, Lymph % (Auto) 12.1 L,Wayne % (Auto) 7.8, Eos % (Auto) 1.1, Baso % (Auto) 1.1 H, Absolute Neuts (auto) 6.6, Absolute Lymphs (auto) 1.03, Nucleated RBC % 0 Imaging Radiology Impression Brain CT 12/17/24 15:53 IMPRESSION: 1. Cerebral atrophy. 2. No evidence of acute intracranial pathology. 3. Other findings as noted. Findings were called to the [facility] emergency department on 12/17/2024 at 4:35 p.m. Reading Location: [id number] Head/Neck CTA 12/17/24 15:53 IMPRESSION: Right ICA stenosis of 75%. Left ICA stenosis of 50%. Additional atherosclerosis as above. Biapical pulmonary scarring and emphysema. Reading Location: [id number] Chest X-Ray 12/17/24 15:54 IMPRESSION: Hyperaerated lungs which can suggest COPD. Stable scarring. Reading Location: [id number] Assessment & Plan Assessment/Plan (1) Acute CVA (cerebrovascular accident): PLAN: Plan Patient is a 74-year-old male who presented to [facility] ED on 12/17/2024 with strokelike symptoms. 1. Suspected acute CVA ? Admit under observation status to PCU. Neurology consulted. Presented with acute right sided facial droop and dysarthria, NIHSS score of 10 per neurology. Highest concern is for embolic stroke due to A-fib not on anticoagulation due tohistory of falls. CTA head/neck did show 75% right ICA stenosis and 50% left ICA stenosis; on chart review, on carotid ultrasound from 2017 there was mild tomoderate stenosis noted bilaterally. MRI brain ordered. Echocardiogram orderedto evaluate for thrombus. Lipid panel, A1c and TSH ordered. PT/OT/case management consulted. Will treat with baby aspirin and continue home Plavix fornow. Continue home high-intensity statin. Appreciate neurology recommendations. 2. Paroxysmal A-fib ? Known history of paroxysmal A-fib but has been off coagulation since at least March 2024 due to history of falls. EKG on admit showed rate controlled A-fib. Holding home Lopressor for permissive hypertension. Holding anticoagulation and treating with aspirin and Plavix as above. Continue cardiacmonitoring. 3. Recent acute on chronic respiratory failure secondary to COPD exacerbation ? Recent hospitalization from 12/13-12/16 for this. On 2 L in the ED but with moderate wheezing noted bilaterally. Given breathing treatment and 1 dose of IVSolu- Medrol, and will continue scheduled breathing treatments and p.o. prednisone while inpatient. 4. Acute on chronic debility with Alzheimer's dementia ? PT/OT/case management consulted as above. Noted during previous hospitalization that family was having difficulty taking care of patient in current living environment. Suspect patient will need placement on discharge. Appreciate therapy recs as above. Chronic medical conditions: ? History of nonobstructive CAD and PAD, hypertension, hyperlipidemia: Treating with aspirin, Plavix, statin as above. Holding home Lopressor, nifedipine, losartan, and clonidine for permissive hypertension. ? BPH with obstructive symptoms: Continue home finasteride. Hold Flomax for nowfor permissive hypertension. ? GERD: Continue home PPI. ? Anxiety/depression: Continue home sertraline and mirtazapine. ? Tobacco abuse: Nicotine patch in place per patient request. ? Seizure disorder: Continue home carbamazepine. DVT prophylaxis: SCDs CODE STATUS: Full code, verified Expected disposition: TBD Total clinical time spent by myself addressing the patient's medical issues, reviewing all the data, and collaborating with patient's care team: 75 minutes. Charges/Coding Visit Charges Inpatient E&M: 72345 Init Hosp L3 12/17/241916 <Electronically signed by Roman Patel DO> Cosigner Signature (if applicable): CC: Dr. Roman Patel DO; Dr. Daija Morton MD~ Signed [facility] Work Phone: 1([phone]) 140-579407-01-2025 Discharge summary Author Seth Pritchard [facility] Note Date/Time December 17, 2024 5:41p m [facility] Medical Records Department [address] [place] [address] Emergency Department Summary 12/17/24 MR#: [id number] Acct: [id number] Name: PEDRO PABLO SIERRA Rep #:[id number] : 1950 74 From: Seth Pritchard DO [...] was around noon according to at home. [facility] Medical History Weakness Debility Failure to thrive [...] 77.5 H Lymph % (Auto) 12.1 L Wayne % (Auto) 7.8 Eos % (Auto) 1.1 [...] on 12/17/2024 at 4:35 p.m. Reading Location: [id number] Head/Neck CTA 12/17/24 15:53 IMPRESSION: Right ICA stenosis of 75%. Left ICA stenosis of 50%. Additional atherosclerosis as above. Biapical pulmonary scarring and emphysema. Reading Location: [id number] Chest X-Ray 12/17/24 15:54 IMPRESSION: Hyperaerated lungs which can suggest COPD. Stable scarring. Reading Location: [id number] Discharge Plan Triage Chief Complaint: Stroke Alert [...] MD [Primary Care Provider] - Print Language: Monegasque Disposition Disposition: Acute Care Hospital [facility] What to do if you have Problems For any increased pain, shortness of breath, bleeding, nausea or vomiting, chestpain, or any unexpected problems, contact your Primary Care Provider. Call [facility] ([phone]) or report to the closest Emergency Room. Call 911 if necessary. 12/17/24 1747 <Electronically signed by Seth Pritchard DO>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 Elton Petersninger [facility] Note Date/Time September 02, 2024 2:2 8pm [facility] Medical Records Department [address] [place] [address] Progress Note - Infect Disease 09/02/24 1425 MR#: [id number] Acct: [id number] Name: PEDRO PABLO SIERRA Rep #:[id number] : 1950 74 From: Elton pierce MD PCP: Dr. Daija Morton MD Status:ADM I N Location: MS3 PV103-9 Physical Exam Narrative C/o some dysuria. No [...] Cosigner Signature (if applicable): CC: ~ Signed [facility] Work Phone: 1(709) 191-682303-17-2025 Discharge summary [facility] Medical Records Department [address] [place] [address] Discharge Summary 09/02/24 1459 MR#: [id number] Acct: [id number] Name: PEDRO PABLO SIERRA Rep #:[id number] : 1950 74 From: Brody Damon PCP: Dr. Daija Morton MD Status:ADM I N Location: [place] [address] Providers Date of Admission: 08/27/24 Date of [...] diarrhea, generalized weakness after recent discharge from [facility]. Patient was found to have UTI, ESBL E. coli. He also has mild COPD exacerbation. # Generalized weakness/debility/failure to thrive -Patient recently had been at [facility] and was discharged 08/20/2024 buthas been having [...] and DC plan in place -08/30: Awaiting [facility] and [facility] determinations about payee so that patient can be placedat [facility], further dispo pending this -08/31: Patient accepted [...] in before D/C Order can be placed): Residential Facility Charges/Coding Visit Charges Inpatient E&M: 34086 Disch Hosp >30min 09/02/24 1509 Cosigner Signature (if applicable): CC: Dr. Daija Morton MD; Dr. Brody Maynard MD~ Signed [facility]03-17-20[facility] Discharge summary [facility] Medical Records Department [address] [place] [address] Transfer to [facility] MR#: [id number] Acct: [id number] Name: PEDRO PABLO SIERRA Rep #:[id number] : 1950 74 From: Brody Damon PCP: Dr. Daija Morton MD Status:ADM I N Certification of patient admission REQUIRED AT TIME OF ADMISSION. I CERTIFY THAT POST-HOSPITAL ECF SERVICES ARE REQUIRED TO BE GIVEN ON AN IN-PATIENT BASIS BECAUSE OF THE ABOVE NAMED PATIENT'S NEED FOR CUSTODIAL CARE ON A CONTINUING BASIS FOR THE CONDITION(S) FOR WHICH HE/SHE WAS RECEIVING IN-PATIENT HOSPITAL SERVICES PRIOR TO HIS/HER TRANSFER TO THE ECF. 09/02/24 1458 Diet Diet Order/Speech Therapy: 08/25/24 19:21 Diet: Cardiac - Heart Healthy Food consistency:: Regular Liquid Consistency:: Regular/Thin DC O2, CPAP, BIPAP needs Home O2 Discharge instructions: No Problem/Diagnosis (1) Weakness: Status: Acute Code(s): R53.1 - Weakness (2) Acute diarrhea: Status: Acute Code(s): R19.7 - Diarrhea, unspecified Plan # Generalized weakness/debility/failure to thrive -Patient recently had been at [facility] and was discharged 08/20/2024 buthas been having diarrhea since that time -May be due to diarrhea but cannot say definitively, checking UA -PT/OT -08/27: UA ordered, yet to be collected, will follow-up, continue to work with physical therapy, case management social work following -08/28: Patient now agreeable to placement, placement avenues been pursued -08/29: Patient pending acceptance and pre-CERT for [facility], patient stable and willbe cleared for discharge once antibiotic and DC plan in place -08/30: Awaiting [facility] and [facility] determinations about payee so that patient can be placedat [facility], further dispo pending this -08/31: Patient accepted [...] in before D/C Order can be placed): Residential Facility 09/02/24 0685 Cosigner Signature (if applicable): CC: Dr. Daija Morton MD; Dr. Lisha Talamantes DO; Dr. Celia Toribio MD; Dr. Ashley MD ~ [facility]03-17-2025 Progress note [facility] Medical Records Department [address] [place] [address] Progress Note - Infect Disease 09/02/24 1425 MR#: [id number] Acct: [id number] Name: PEDRO PABLO SIERRA Rep #:[id number] : 1950 74 From: Elton pierce MD PCP: Dr. Daija Morton MD Status:ADM I N Location: [place]3 PY533-7 Physical Exam Narrative C/o some dysuria. No [...] Cosigner Signature (if applicable): CC: ~ Signed [facility]03-16-2025 Progress note Author Celia Toribio [facility] Note Date/Time September 01, 2024 11: 27am [facility] Medical Records Department [address] [place] [address] Progress Note - Hospitalist 09/01/24 0758 MR#: [id number] Acct: [id number] Name: PEDRO PABLO SIERRA Rep #:[id number] : 1950 74 From: Celia Toribio MD PCP: Dr. Daija Morton MD Status:ADM I N Location: [place] [address] Reason for Visit Reason for Visit: Diagnoses [...] (Auto) 70.9 H, Lymph % (Auto) 20.9, Wayne % (Auto) 6.2, Eos % (Auto) 0.4, [...] to thrive -Patient recently had been at [facility] and was discharged 08/20/2024 buthas been having [...] and DC plan in place -08/30: Awaiting [facility] and [facility] determinations about payee so that patient can be placed at [facility], further dispo pending this -08/31: Patient accepted [...] presently pursue any further workup #DVT ppx: Philippe Toribio MD Charges/Coding Visit Charges Inpatient E&M: 12761 Subs Hosp L1 09/01/24 1127 <Electronically signed by Celia Toribio MD> Cosigner Signature (if applicable): CC: ~ Signed [facility] Work Phone: 1(232) 924-565503-16-2025 Progress note [facility] Medical Records Department [address] [place] [address] Progress Note - Hospitalist 09/01/24 0758 MR#: [id number] Acct: [id number] Name: PEDRO PABLO SIERRA Rep #:[id number] : 1950 74 From: Celia Toribio MD PCP: Dr. Daija Morton MD Status:ADM I N Location: [place] WZ097-5 Reason for Visit Reason for Visit: Diagnoses [...] %(Auto) 70.9 H, Lymph % (Auto) 20.9, Wayne % (Auto) 6.2, Eos % (Auto) 0.4, [...] to thrive -Patient recently had been at [facility] and was discharged 08/20/2024 buthas been having [...] and DC plan in place -08/30: Awaiting [facility] and [facility] determinations about payee so that patient can be placedat [facility], further dispo pending this -08/31: Patient accepted [...] Toribio MD Charges/Coding Visit Charges Inpatient E&M: 09859 Subs Hosp L1 09/01/24 1127 Cosigner Signature (if applicable): CC: ~ Signed [facility]03-15-2025 Progress note Author Celia Toribio [facility] Note Date/Time August 31, 2024 12: 30pm [facility] Medical Records Department [address] [place] [address] Progress Note - Hospitalist 08/31/24 0748 MR#: [id number] Acct: [id number] Name: PEDRO PABLO SIERRA Rep #:[id number] : 1950 74 From: Celia Toribio MD PCP: Dr. Daija Morton MD Status:ADM I N Location: [place] XV539-6 Reason for Visit Reason for Visit: Diagnoses [...] to thrive -Patient recently had been at [facility] and was discharged 08/20/2024 buthas been having diarrhea since that time -May be due to diarrhea but cannot say definitively, checking UA -PT/OT -08/27: UA ordered, yet to be collected, will follow-up, continue to work with physical therapy, case management social work following -08/28: Patient now agreeable to placement, placement avenues been pursued -08/29: Patient pending acceptance and pre-CERT for [facility], patient stable and willbe cleared for discharge once antibiotic and DC plan in place -08/30: Awaiting [facility] and [facility] determinations about payee so that patient can be placed at [facility], further dispo pending this -08/31: Patient accepted [...] documentation, 36minutes Charges/Coding Visit Charges Inpatient E&M: 49928 Subs Hosp L2 08/31/24 1230 <Electronically signed by Celia Toribio MD> Cosigner Signature (if applicable): CC: ~ Signed [facility] Work Phone: [phone]) 823-416203-15-2025 Progress note [facility] Medical Records Department [address] [place] [address] Progress Note - Hospitalist 08/31/24 0748 MR#: [id number] Acct: [id number] Name: PEDRO PABLO SIERRA Rep #:[id number] : 1950 74 From: Celia Toribio MD PCP: Dr. Daija Morton MD Status:ADM I N Location: [place] [address] Reason for Visit Reason for Visit: Diagnoses [...] to thrive -Patient recently had been at [facility] and was discharged 08/20/2024 buthas been having [...] and DC plan in place -08/30: Awaiting [facility] and [facility] determinations about payee so that patient can be placedat [facility], further dispo pending this -08/31: Patient accepted [...] documentation, 36minutes Charges/Coding Visit Charges Inpatient E&M: 26354 Subs Hosp L2 08/31/24 1230 Cosigner Signature (if applicable): CC: ~ Signed [facility]03-14-2025 Consult note Author Elton Moore [facility] Note Date/Time August 30, 2024 1:4 6pm [facility] Medical Records Department [address] [place] [address] Consultation - Infectious Dx 08/30/24 1343 MR#: [id number] Acct: [id number] Name: PEDRO PABLO SIERRA Rep #:[id number] : 1950 74 From: Elton pierce MD PCP: Dr. Daija Mroton MD Status:ADM I N Location: [place]3 VP017-1 Assessment & Plan Assessment/Plan (1) Weakness: (2) [...] performed and neg except as noted above. [facility] Medical History Compression fx, lumbar [...] DO) household members: family housing: other details: [employer] 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 Smoking Status: Current [...] (Auto) 64.8, Lymph % (Auto) 17.8 L, Wayne % (Auto) 7.6, Eos % (Auto) 7.8 [...] applicable): CC: Dr. Daija Morton MD~ Signed [facility] Work Phone: 1([phone]) 277-940203-14-2025 Consult note [facility] Medical Records Department [address] [place] [address] Consultation - Infectious Dx 08/30/24 1343 MR#: [id number] Acct: [id number] Name: PEDRO PABLO SIERRA Rep #:[id number] : 1950 74 From: Elton pierce MD PCP: Dr. Daija Morton MD Status:ADM I N Location: [place] [address] Assessment & Plan Assessment/Plan (1) Weakness: (2) [...] performed and neg except as noted above. [facility] Medical History Compression fx, lumbar [...] %(Auto) 64.8, Lymph % (Auto) 17.8 L, Wayne % (Auto) 7.6, Eos % (Auto) 7.8 [...] applicable): CC: Dr. Daija Morton MD~ Signed [facility]03-14-2025 Progress note Author Celia Toribio [facility] Note Date/Time August 30, 2024 11: 11am [facility] Medical Records Department [address] [place] [address] Progress Note - Hospitalist 08/30/24708 MR#: [id number] Acct: [id number] Name: PEDRO PABLO SIERRA Rep #:[id number] : 1950 74 From: Celia Toribio MD PCP: Dr. Daija Morton MD Status:ADM I N [facility] Reason for Visit Reason for Visit: Diagnoses [...] (Auto) 64.8, Lymph % (Auto) 17.8 L, Wayne % (Auto) 7.6, Eos % (Auto) 7.8 [...] to thrive -Patient recently had been at [facility] and was discharged 08/20/2024 buthas been having diarrhea since that time -May be due to diarrhea but cannot say definitively, checking UA -PT/OT -08/27: UA ordered, yet to be collected, will follow-up, continue to work with physical therapy, case management social work following -08/28: Patient now agreeable to placement, placement avenues been pursued -08/29: Patient pending acceptance and pre-CERT for [facility], patient stable and willbe cleared for discharge once antibiotic and DC plan in place -08/30: Awaiting [facility] and [facility] determinations about payee so that patient can be placed at [facility], further dispo pending this # Urinary tract [...] documentation, 36minutes Charges/Coding Visit Charges Inpatient E&M: 71873 Subs Hosp L2 08/30/24 1111 <Electronically signed by Celia Toribio MD> Cosigner Signature (if applicable): CC: ~ Signed [facility] Work Phone: [phone]) 320-695103-14-2025 Progress note [facility] Medical Records Department [address] [place] [address] Progress Note - Hospitalist 08/30/24 0709 MR#: [id number] Acct: [id number] Name: PEDRO PABLO SIERRA Rep #:[id number] : 1950 74 From: Celia Toribio MD PCP: Dr. Daija Morton MD Status:ADM I N Location: [place] [address]-1 Reason for Visit Reason for Visit: Diagnoses [...] %(Auto) 64.8, Lymph % (Auto) 17.8 L, Wayne % (Auto) 7.6, Eos % (Auto) 7.8 [...] to thrive -Patient recently had been at [facility] and was discharged 08/20/2024 buthas been having diarrhea since that time -May be due to diarrhea but cannot say definitively, checking UA -PT/OT -08/27: UA ordered, yet to be collected, will follow-up, continue to work with physical therapy, case management social work following -08/28: Patient now agreeable to placement, placement avenues been pursued -08/29: Patient pending acceptance and pre-CERT for [facility], patient stable and willbe cleared for discharge once antibiotic and DC plan in place -08/30: Awaiting [facility] and [facility] determinations about payee so that patient can be placedat [facility], further dispo pending this # Urinary tract [...] documentation, 36minutes Charges/Coding Visit Charges Inpatient E&M: 16799 Subs Hosp L2 08/30/24 1111 Cosigner Signature (if applicable): CC: ~ Signed [facility]03-13-2025 Progress note Author Celia Toribio [facility] Note Date/Time August 29, 2024 5:2 5pm [facility] Medical Records Department [address] [facility] [place] [address] Progress Note - Hospitalist 08/29/24804 MR#: [id number] Acct: [id number] Name: PEDRO PABLO SIERRA Rep #:[id number] : 1950 74 From: Celia Toribio MD PCP: Dr. Daija Morton MD Status:ADM I N Location: [address] Reason for Visit Reason for Visit: [...] % (Auto) 59.8, Lymph % (Auto) 22.3, Wayne % (Auto) 8.0, Eos % (Auto) 8.2 [...] to thrive -Patient recently had been at [facility] and was discharged 08/20/2024 buthas been having [...] bowel movement earliertoday, diarrhea resolved #DVT [facility]px[facility] Time spent in the patient's overall evaluation,decision-making process, review of diagnostic data, adjustment of management, discussion with other providers, nursing nursing and ancillary staff involved in patient's care documentation, 35minutes Charges/Coding Visit Charges Inpatient E&M: 17353 Subs Hosp L2 08/29/24 1725 <Electronically signed by Celia Toribio MD> Cosigner Signature (if applicable): CC: ~ Signed [facility] Work Phone: [phone]) 949-613803-13-2025 Progress note [facility] Medical Records Department [address] [place] [address] Progress Note - Hospitalist 08/29/24 0805 MR#: [id number] Acct: [id number] Name: PEDRO PABLO SIERRA Rep #:[id number] : 1950 74 From: Celia Toribio MD PCP: Dr. Daija Morton MD Status:ADM I N Location: [place] [address] Reason for Visit Reason for Visit: Diagnoses [...] % (Auto) 59.8, Lymph % (Auto) 22.3, Wayne % (Auto) 8.0, Eos % (Auto) 8.2 [...] to thrive -Patient recently had been at [facility] and was discharged 08/20/2024 buthas been having diarrhea since that time -May be due to diarrhea but cannot say definitively, checking UA -PT/OT -08/27: UA ordered, yet to be collected, will follow-up, continue to work with physical therapy, case management social work following -3/12: Patient now agreeable to placement, placement avenues [...] documentation, 35minutes Charges/Coding Visit Charges Inpatient E&M: 66224 Subs Hosp L2 08/29/24 1725 Cosigner Signature (if applicable): CC: ~ Signed [facility]03-12-2025 Progress note Author Celia Toribio [facility] Note Date/Time August 28, 2024 3:0 4pm [facility] Medical Records Department [address] [place] [address] Progress Note - Hospitalist 08/28/24 6678 MR#: [id number] Acct: [id number] Name: PEDRO PABLO SIERRA Rep #:[id number] : 1950 74 From: Celia Toribio MD PCP: Dr. Daija Morton MD Status:ADM I N Location: [place] [address] Reason for Visit Reason for Visit: Diagnoses [...] % (Auto) 55.6, Lymph % (Auto) 23.4, Wayne % (Auto) 11.3 H, Eos % (Auto) [...] to thrive -Patient recently had been at [facility] and was discharged 08/20/2024 buthas been having [...] documentation, 35minutes Charges/Coding Visit Charges Inpatient E&M: 57343 Subs Hosp L2 08/28/24 1504 <Electronically signed by Celia Toribio MD> Cosigner Signature (if applicable): CC: ~ Signed [facility] Work Phone: [phone]) 582-234203-12-2025 Progress note [facility] Medical Records Department [address] [place] [address] Progress Note - Hospitalist 08/28/24 2707 MR#: [id number] Acct: [id number] Name: PEDRO PABLO SIERRA Rep #:[id number] : 1950 74 From: Celia Toribio MD PCP: Dr. Daija Morton MD Status:ADM I N Location: [place] [address] Reason for Visit Reason for Visit: Diagnoses [...] % (Auto) 55.6, Lymph % (Auto) 23.4, Wayne % (Auto) 11.3 H, Eos % (Auto) [...] to thrive -Patient recently had been at [facility] and was discharged 08/20/2024 buthas been having [...] home medications #GERD -Continue PPI #DVT ppx: Philippe Toribio MD Time spent in the patient's overall evaluation,decision-making process, review of diagnostic data, adjustment of management, discussion with other providers, nursing nursing and ancillary staff involved in patient's care documentation, 35minutes Charges/Coding Visit Charges Inpatient E&M: 84321 Subs Hosp L2 08/28/24 1504 Cosigner Signature (if applicable): CC: ~ Signed [facility]03-11-2025 Evaluation note* Diagnosis Onset Date Resolution Status Admit Date Acute diarrhea acute August 6:22pm Debility acute August 27 6:22pm Weakness acute August 27 6:22pm 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 August 172024 6:22pm [facility] Work Phone: 1(406) 336-537803-11-2025 Evaluation note* Diagnosis Onset Date Resolution Status Admit Date Acute diarrhea resolved August 6:22pm Debility inactive August 27 6:22pm Failure to thrive inactive August 172024 6:22pm Weakness inactive August 27 6:22pm [facility] Work Phone: [phone]) [phone] Evaluation note* Diagnosis Onset Date Resolution Status Admit Date Acute diarrhea resolved August 6:22pm Debility inactive August 27 6:22pm Failure to thrive inactive August 172024 6:22pm Weakness inactive August 27 6:22pm COPD exacerbation chronic December 132024 8:07pm [facility] Work Phone: 1(327) 201-238003-11-2025 Evaluation note* Diagnosis Onset Date Resolution Status Admit Date Acute diarrhea resolved August 6:22pm Debility inactive August 27 6:22pm Failure to thrive inactive August 172024 6:22pm Weakness inactive August 27 6:22pm Acute on chronic respiratory failure with hypoxia and hypercapnia chronic December 13, 2024 8:07pm COPD exacerbation chronic December 132024 8:07pm [facility] Work Phone: [phone] 983-860103-11-2025 Evaluation note* Diagnosis Onset Date Resolution Status [...] December 5:51pm Hypertension chronic December 17 5:51pm [facility] Work Phone: [phone]) 983-878303-11-2025 Evaluation note* Diagnosis Onset Date Resolution Status Admit Date Acute diarrhea resolved August 6:22pm Debility inactive August 27 6:22pm Failure to thrive inactive August 172024 6:22pm Weakness inactive August 27 6:22pm Acute on chronic respiratory failure with hypoxia and hypercapnia resolved December 13, 2024 8:07pm COPD exacerbation resolved December 132024 8:07pm Acute CVA (cerebrovascular accident) acute December 18, 2024 2 :58pm Aphasia acute December 18, 2024 2:58pm Facial droop acute December 18 2:58pm Hypertension chronic December 18 2:58pm Acute on chronic respiratory failure with hypoxia and hypercapnia resolved December 18, 2024 2 :58pm COPD exacerbation resolved December 2:58pm [facility] Work Phone: 1(288) 531-722603-11-2025 Progress note Author Celia Toribio [facility] Note Date/Time August 27, 2024 4:1 3pm [facility] Medical Records Department [address] [place] [address] Progress Note - Hospitalist 08/27/24 1613 MR#: [id number] Acct: [id number] Name: PEDRO PABLO SIERRA Rep #:[id number] : 1950 74 From: Celia Toribio MD PCP: Dr. Daija Morton MD Status:ADM I NO Location: [place] [address] Hospitalist Note Repeat hemoglobin actually improved, suspect that this was then margin of bladder, will DC FOBT 08/27/24 1613 <Electronically signed by Celia Toribio MD> Cosigner Signature (if applicable): CC: ~ Signed [facility] Work Phone: [phone]) [phone] Progress note [facility] Medical Records Department [address] [place] [address] Progress Note - Hospitalist 08/27/24 1613 MR#: [id number] Acct: [id number] Name: PEDRO PABLO SIERRA Rep #:[id number] : 1950 74 From: Celia Toribio MD PCP: Dr. Daija Morton MD Status:ADM I NO Location: [place] [address] Hospitalist Note Repeat hemoglobin actually improved, suspect that this was then margin of bladder, will DC FOBT 08/27/241612 Cosigner Signature (if applicable): CC: ~ Signed [facility]03-11-2025 Progress note Author Celia [facility] Note Date/Time August 27, 2024 1:3 2pm [facility] Medical Records Department [address] [place] [address] Progress Note - Hospitalist 08/27/24 1332 MR#: [id number] Acct: [id number] Name: PEDRO PABLO SIERRA R Rep #:[id number] : 1950 74 From: Celia Toribio MD PCP: Dr. Daija Morton MD Status:ADM I NO Location: [place] [address] Hospitalist Note UA abnormal and is suggestive of UTI and given this and patient suprapubic tenderness we will start patient on Rocephin and await urine culture 08/27/24 133 <Electronically signed by Celia Toribio MD> Cosigner Signature (if applicable): CC: ~ Signed [facility] Work Phone: 1(927) 568-304603-11-2025 Progress note Author Celia [facility] Note Date/Time August 27, 2024 12: 52pm [facility] Medical Records Department [address] [place] [address] Progress Note - Hospitalist 08/27/24830 MR#: [id number] Acct: [id number] Name: PEDRO PABLO SIERRA Rep #:[id number] : 1950 74 From: Celia Toribio MD PCP: Dr. Daija Morton MD Status:ADM I NO Location: [place] QN123-4 Reason for Visit Reason for Visit: Diagnoses [...] Neut % (Auto) 56.2, Lymph % (Auto) 23.0,Wayne % (Auto) 13.1 H, Eos % (Auto) [...] to thrive -Patient recently had been at [facility] and was discharged 08/20/2024 buthas been having [...] documentation, 36minutes Charges/Coding Visit Charges Inpatient E&M: 09806 Subs Hosp L2 08/27/24 1252 <Electronically signed by Celia Toribio MD> Cosigner Signature (if applicable): CC: ~ Signed [facility] Work Phone: [phone] Progress note [facility] Medical Records Department [address] [place] [address] Progress Note - Hospitalist 08/27/24 1332 MR#: [id number] Acct: [id number] Name: PEDRO PABLO SIERRA R Rep #:[id number] : 1950 74 From: Celia Toribio MD PCP: Dr. Daija Morton MD Status:ADM I NO Location: [place] [address] Hospitalist Note UA abnormal and is suggestive of UTI and given this and patient suprapubic tenderness we will startpatient on Rocephin and await urine culture 08/27/241331 Cosigner Signature (if applicable): CC: ~ Signed [facility]03-11-2025 Progress note [facility] Medical Records Department [address] [place] [address] Progress Note - Hospitalist 08/27/24 0831 MR#: [id number] Acct: [id number] Name: PEDRO PABLO SIERRA R Rep #:[id number] : 1950 74 From: Celia Toribio MD PCP: Dr. Daija Morton MD Status:ADM I NO Location: [place] [address] Reason for Visit Reason for Visit: Diagnoses [...] Neut % (Auto) 56.2, Lymph % (Auto) 23.0,Wayne % (Auto) 13.1 H, Eos % (Auto) [...] to thrive -Patient recently had been at [facility] and was discharged 08/20/2024 buthas been having [...] documentation, 36minutes Charges/Coding Visit Charges Inpatient E&M: 62088 Subs Hosp L2 08/27/24 1252 Cosigner Signature (if applicable): CC: ~ Signed [facility]03-10-2025 Progress note Author Celia Toribio [facility] Note Date/Time August 26, 2024 4:5 4pm [facility] Medical Records Department [address] [place] [address] Progress Note - Hospitalist 08/26/24906 MR#: [id number] Acct: [id number] Name: PEDRO PABLO SIERRA Rep #:[id number] : 1950 74 From: Celia Toribio MD PCP: Dr. Daija Morton MD Status:ADM I NO Location: [address] Reason for Visit Reason for Visit: [...] 78.4 H, Lymph % (Auto) 10.3 L, Wayne % (Auto) 9.9, Eos % (Auto) 0.3, [...] % (Auto) 60.3, Lymph % (Auto) 19.8, Wayne% (Auto) 15.2 H, Eos % (Auto) 3.4, [...] IMPRESSION: No acute airspace abnormality. Reading Location: [facility] Physical Exam Narrative General: Alert, no apparent [...] to thrive -Patient recently had been at [facility] and was discharged 08/20/2024 buthas been having [...] Toribio MD Charges/Coding Visit Charges Inpatient E&M: 22010 Subs Hosp L2 08/26/24 1656 <Electronically signed by Celia Toribio MD> Cosigner Signature (if applicable): CC: ~ Signed [facility] Work Phone: 1(282) 509-731903-10-2025 Progress note [facility] Medical Records Department [address] [place] [address] Progress Note - Hospitalist 08/26/24906 MR#: [id number] Acct: [id number] Name: PEDRO PABLO SIERRA Rep #:[id number] : 1950 74 From: Celia Toribio MD PCP: Dr. Daija Morton MD Status:ADM I NO Location: [place] XX071-7 Reason for Visit Reason for Visit: Diagnoses [...] 78.4 H, Lymph % (Auto) 10.3 L, Wayne % (Auto) 9.9, Eos % (Auto) 0.3, [...] Neut %(Auto) 60.3, Lymph % (Auto) 19.8, Wayne% (Auto) 15.2 H, Eos % (Auto) 3.4, [...]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 if Nevaeh Wellernikko would follow [facility] orders Lynnette can be reached at [phone] patient does have appointment on 11/20 Please advise documented in [facility] encounterD[facility] Telephone encounter Note * Telephone Encounter - Jacquie Barnes - 11/17/2023 2:08 PM EDT Lynnette from [facility] called asking if Nevaeh Wellernikko would follow [facility] orders Lynnette can be reached at [phone] patient does have appointment on 11/20 Please advise [facility] Work Phone: 1(462) 102-505605-30-2024 Telephone encounter Note* Telephone Encounter - Kaye Manley LPN - 11/16/2023 3:35 PM EDT Spoke with Magno gave information provided. Pt voices understanding. [facility]05-30-2024 Miscellaneous Notes* Telephone Encounter - Kaye Manley LPN - 11/16/2023 3:35 PM EDT Spoke with Magno gave information provided. Pt voices understanding. * Telephone Encounter - Rebekah Luu PA-C - 11/16/2023 2:40 PM EDT PCP-Dr. Morton can follow patient. Rebekah Luu PA-C * Telephone Encounter - Pina Shah LPN - 11/15/2023 2:13 PM EDT Magno from [facility] asking if you will follow? Please advise. documented in this encounterDiley [facility] Center05-30-2024 Telephone encounter Note * Telephone Encounter - Rebekah Luu PA-C - 11/16/2023 2:40 PM EDT PCP-Dr. Morton can follow patient. Rebekah Luu PA-C [facility] Work Phone: [phone]) 246-620505-29-2024 Telephone encounter Note* Telephone Encounter - iPna Shah LPN - 11/15/2023 2:13 PM EDT Magno from [facility] asking if you will follow? Please advise. [facility] Work Phone: [phone]) 908-569105-23-2024 Telephone encounter Note* Telephone Encounter - Berta Zazueta MA - 11/09/2023 1:41 PM EDT No name or return number was given. Was able to locate number online and information given to intake nurse. [facility]05-23-2024 Miscellaneous Notes* Telephone Encounter - [...] Home Care called asking if provider or JTAC would be willing to follow for on going home care orders (Patient being discharged from [facility]) Please advise documented in this encounterDiley [facility] Center05-23-2024 Telephone encounter Note * Telephone Encounter - Anjel Braga APRN.CNP - 11/09/2023 12:52 PM EDT Provider agrees to follow at this time. Anjel Braga APRN.CNP [facility]05-23-2024 Telephone encounter Note* Telephone Encounter - Jacquie Barnes - 11/09/2023 11:17 AM EDT [facility] called asking if provider or JTAC would be willing to follow for on going home care orders (Patient being discharged from [facility]) Please advise [facility] Work Phone: 1(970) 223-943305-02-2024 Telephone encounter Note* Telephone Encounter - Harriett Albert APRN.CNS - 10/19/2023 4:49 PM EDT Noted [facility]05-02-2024 Miscellaneous Notes* Telephone Encounter - Harriett Albert APRN.CNS - 10/19/2023 4:49 PM EDT Noted * Telephone Encounter - Nani Webb LPN - 10/19/2023 4:17 PM EDT FYI: Lit primary care md with [facility] calling to let you know pt is now approved for MyCare Waiver. Pt will be receiving MyCare [employer] Waiver. Pt is still in retirement [facility]. Nani Webb LPN documented in this encounterDiley Ridge Medical Center05-02-2024 Telephone encounter Note * Telephone Encounter - Nani Webb LPN - 10/19/2023 4:17 PM EDT FYI: Lit primary care md with [facility] calling to let you know pt is now approved for MyCare Waiver. Pt will be receiving [employer] Waiver. Pt is still in retirement [facility]. Nani Webb LPN [facility]03-04-2024 History of Present illness Narrative* [...] 21, 2023 10:47 AM documented in this encounterDiley Ridge Medical Center02-19-2024 Miscellaneous Notes* Telephone Encounter - [...] 08/04/2023 2:29 PM EST Pharmacy verified in [facility] Patient has been identified by [...] Please advise. Emilie Flowers documented in this encounterDiley [facility] Medical Center02-14-2024 Discharge summary Author Ryan Guerin [facility] August 02, 2023 4:20pm Note Date/Time August 02, 2023 4:00pm [facility] Medical Records Department [address] [place] [address] Transfer to [facility] Care MR#: [id number] Acct: [id number] Name: PEDRO PABLO SIERRA Rep #:[id number] : 1950 73 From: Ryan Guerin DO PCP: Dr. Daija Morton MD Status:ADM I N Certification of patient admission REQUIRED AT TIME OF ADMISSION. I CERTIFY THAT POST-HOSPITAL ECF SERVICES ARE REQUIRED TO BE GIVEN ON AN IN-PATIENT BASIS BECAUSE OF THE ABOVE NAMED PATIENT'S NEED FOR CUSTODIAL CARE ON A CONTINUING BASIS FOR THE [...] Cardiac / Consistent CHO - consistency per AUTOMATIC SERGING MACHINE OPERATOR. Monitor need for po supplement pending [...] in before D/C Order can be placed): Residential Facility 08/02/23 1620 <Electronically signed by Ryan Guerin DO> Cosigner Signature (if applicable): CC: Dr. Daija Morton MD; Dr. Brody Maynard MD ~ [facility] Work Phone: 1(475) 380-595302-13-2024 Progress note Author Ryan [facility] August 01, 2023 3:34pm Note Date/Time August 01, 2023 3:34pm [facility] Medical Records Department [address] [place] [address] Progress Note - Hospitalist 08/01/23 1531 MR#: [id number] Acct: [id number] Name: PEDRO PABLO SIERRA Rep #:[id number] : 1950 73 From: Ryan Guerin DO [...] will need precertification to return to his [facility] facility. Objective Data Objective Data Vital Signs: [...] 25 minutes Charges/Coding Visit Charges Inpatient E&M: 17505 Subs Hosp L1 08/01/23 1534 <Electronically signed by Ryan Guerin DO> Cosigner Signature (if applicable): CC: ~ Signed [facility] Work Phone: 1(983) 796-489702-12-2024 Progress note Author [facility] July 31, 2023 5:02pm Note Date/Time July 31, 2023 4:57pm [facility] Medical Records Department [address] [place] [address] Progress Note - Hospitalist 07/31/23 1654 MR#: [id number] Acct: [id number] Name: PEDRO PABLO SIERRA Rep #:[id number] : 1950 73 From: Ryan Guerin DO PCP: Dr. Daija Morton MD Status:ADM I N [facility] Reason for Visit Reason for Visit: Diagnoses [...] 76.5 H, Lymph % (Auto) 10.9 L, Wayne % (Auto) 10.7 H, Eos % (Auto) [...] Clarity Clear, Urine pH 7.0, Ur Specific Marshall 1.010, Urine Protein 30 H, Urine Glucose [...] 85.0 H, Lymph % (Auto) 7.1 L, Wayne % (Auto) 7.1, Eos % (Auto) 0.0, [...] 35 minutes Charges/Coding Visit Charges Inpatient E&M: 74714 Subs Hosp L2 07/31/23 1702 <Electronically signed by Ryan Guerin DO> Cosigner Signature (if applicable): CC: ~ Signed [facility] Work Phone: 1(274) 218-913802-12-2024 History and physical note Author Brody Maynard [facility] July 31, 2023 1:01am Note Date/Time July 30, 2023 11:50[facility] Medical Records Department [address] [place] [address] H&P Exam - Hospitalist 07/30/23 2347 MR#: [id number] Acct: [id number] Name: PEDRO PABLO SIERRA Rep #:[id number] : 1950 73 From: Brody Damon PCP: [...] 3 to 5 L of oxygen from [facility] came to ED for shortness of breath along with wheezing and cough. residential, patient was febrile. Patient was found tachypneic [...] 20 mg IV. Patient is further admitted [facility] Medical History Asthma Atrial fibrillation Chronic [...] tablet 15 mg PO QHS anti depressant 02/28/20 [History Last Taken 03/28/23] clopidogrel 75 mg [...] 76.5 H, Lymph % (Auto) 10.9 L, Wayne % (Auto) 10.7 H, Eos % (Auto) [...] Clarity Clear, Urine pH 7.0, Ur Specific Marshall 1.010, Urine Protein 30 H, Urine Glucose [...] side. 5. Moderate to severe chronic malnutrition: Technical Sales Director consult. Nutritional supplement. 6. History of paroxysmal [...] 76.5 H, Lymph % (Auto) 10.9 L, Wayne % (Auto) 10.7 H, Eos % (Auto) [...] Clarity Clear, Urine pH 7.0, Ur Specific Marshall 1.010, Urine Protein 30 H, Urine Glucose [...] 21:10 EST Reading Location ID and State: [facility] / [place] Tel [phone], Service support , Charges/Coding Visit Charges Inpatient E&M: 68002 Init Hosp L3 07/31/23 0101 <Electronically signed by Brody Maynard MD> Cosigner Signature (if applicable): CC: Dr. Daija Morton MD; Dr. Brody Maynard MD~ Signed [facility] Work Phone: 1(160) 855-792102-12-2024 Discharge summary Author Huber Alvarado [facility] July 31, 2023 12:08am Note Date/Time July 30, 2023 8:57pm [facility] Medical Records Department [address] [place] [address] Emergency Department Summary 07/30/23 MR#: [id number] Acct: [id number] Name: PEDRO PABLO SIERRA Rep #:[id number] : 1950 73 From: Андрей CORTEZ PCP: Dr. Daija Morton MD Status:REG E R Location: ED HPI <DIEGO Hopper - Last Filed: 02/11/24 22:27> History of Present Illness Chief Complaint: Shortness of Breath Narrative Narrative: Patient is a 73-year-old male with a long medical history including COPD on 3 to5 L nasal cannula, history of recent pubic rami fracture, hypertension, history of ulcerative colitis, presenting to the emergency department for shortness of breath. Patient was admitted here on 24 July, discharged to a retirement. Per the retirement, the patient was more short of breath, tachypneic, and was wheezing more. Patient is alert and oriented to self. Patient is coarse, not answering to my questions. He is aggressive and is answering. I am not sure ifthis is his baseline. Patient's vital signs are stable on his 3 to 5 L of nasalcannula oxygen, patient is tachypneic. He does have audible wheezing. [facility] <DIEGO Hopper - Last Filed: 07/30/23 22:27> [facility] Medical History Asthma Atrial fibrillation Chronic [...] 76.5 H Lymph % (Auto) 10.9 L Wayne % (Auto) 10.7 H Eos % (Auto) [...] Clarity Clear Urine pH 7.0 Ur Specific Marshall 1.010 Urine Protein 30 H Urine Glucose [...] 21:10 EST Reading Location ID and State: [facility] / [place] Tel [phone], Service support , Treatment and Re-Evaluation :: Patient arrives in mild to moderate distress secondary to shortness of breath. Patient with 3 to 5 L is 94% however patient is tachypneic at a rate of 30. Patient's blood pressure is elevated over 200/100. Patient appears confused. Patient is moving all extremities. Currently at the retirement after sustaining a pubic rami fracture. Differential [...] Alvarado MD - Last Filed: 07/31/23 00:08> [facility] Narrative Medical decision making narrative: I have personally performed a face to face assessment of the patient and have reviewed the ANDREW Note. I performed a substantive portion of the visit including all aspects of the following. My echevarria findings include: History: This patient was sent in by retirement for increased blood pressure and increased dyspnea [...] think this would be tolerated at the retirement. He is tachypneic but not tachycardic. He [...] 76.5 H Lymph % (Auto) 10.9 L Wayne % (Auto) 10.7 H Eos % (Auto) [...] Clarity Clear Urine pH 7.0 Ur Specific Marshall 1.010 Urine Protein 30 H Urine Glucose [...] your Primary Care Provider. Call [facility] ([phone]) or report to the closest Emergency Room. Call 911 if necessary. 07/30/232226 <Electronically signed by Андрей CORTEZ> Cosigner Signature (if applicable): 07/31/237 <Electronically signed by Huber Alvarado MD> CC: Dr. Daija Morton MD ~ Signed [facility] Work Phone: 1(698) 139-602302-11-2024 Discharge summary Author Huber Alvarado [facility] July 31, 2023 12:08am Note Date/Time July 30, 2023 8:57pm [facility] Medical Records Department [address] [place] [address] Emergency Department Summary 07/30/23 MR#: [id number] Acct: [id number] Name: PEDRO PABLO SIERRA Rep #:[id number] : 1950 73 From: Андрей CORTEZ PCP: [...] here on 24 July, discharged to a retirement. Per the retirement, the patient was more short of breath, [...] <DIEGO Hopper - Last Filed: 07/30/23 22:27> [facility] Medical History Asthma Atrial fibrillation Chronic [...] alcohol intake: former details: Former 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 <Андрей NgDIEGO - Last Filed: 07/30/23 22:27> ROS ED ROS Narrative When asked if the patient feels short of breath or if he has any complaints, he does not answer any questions. EXAM <Андрей Ng DIEGO - Last Filed: 07/30/23 22:27> Physical Exam [...] 76.5 H Lymph % (Auto) 10.9 L Wayne % (Auto) 10.7 H Eos % (Auto) [...] Clarity Clear Urine pH 7.0 Ur Specific Marshall 1.010 Urine Protein 30 H Urine Glucose [...] is moving all extremities. Currently at the retirement after sustaining a pubic rami fracture. Differential [...] Alvarado MD - Last Filed: 07/31/23 00:08> [facility] Narrative Medical decision making narrative: I have personally performed a face to face assessment of the patient and have reviewed the ANDREW Note. I performed a substantive portion of the visit including all aspects of the following. My echevarria findings include: History: This patient was sent in by retirement for increased blood pressure and increased dyspnea [...] think this would be tolerated at the retirement. He is tachypneic but not tachycardic. He [...] 76.5 H Lymph % (Auto) 10.9 L Wayne % (Auto) 10.7 H Eos % (Auto) [...] Clarity Clear Urine pH 7.0 Ur Specific Marshall 1.010 Urine Protein 30 H Urine Glucose [...] A, COPD with acute exacerbation Disposition Disposition: [facility] What to do if you have Problems For any increased pain, shortness of breath, bleeding, nausea or vomiting, chestpain, or any unexpected problems, contact your Primary Care Provider. Call [facility] ([phone]) or report to the closest Emergency Room. Call 911 if necessary. 07/30/232226 <Electronically signed by Андрей CORTEZ> Cosigner Signature (if applicable): 07/31/23 0008 <Electronically signed by Huber Alvarado MD> CC: Dr. Daija Morton MD ~ Signed [facility] Work Phone: 1(950) 738-544402-01-2024 Miscellaneous Notes* Telephone Encounter - Saundra George RN - 07/20/2023 8:49 AM EST Spoke with patient and provider message reviewed. Message left for Mahnaz Roe to call back if any questions. Saundra George RN * Telephone Encounter - Bryce Rogers MD - 07/19/2023 5:30 PM EST Continue to monitor. Follow up with Anjel next week as scheduled. Do fasting labs as ordered. * Telephone Encounter - Saundra George RN - 07/19/2023 2:59 PM EST Mahnaz baez [facility] calls to give provider update. Patient was seen today for visit and during visit complained of abdominal pain, rib pain, and chest pain with coughing. Afebrile. Productive cough with clear/yellow mucus. Mahnaz reports patient continues to smoke and cough is chronic. Message left on voicemail of Sondra Alejo [phone] to request Pedro Pablo contact the office for further triage. Saundra George RN documented in this encounterDiley Ridge Medical Center01-23-2024 Note. MICRO - Microbiology PROCEDURE: Urine Culture [*1] SOURCE: Urine, Clean Catch BODY SITE: COLLECTED DATE/TIME: 07/10/2023 12:00 EST RECEIVED DATE/TIME: 07/10/2023 16:50 EST START DATE/TIME: 07/10/2023 16:50 EST FREE TEXT SOURCE: FINAL REPORTS Final Report [] Verified Date/Time/Personnel: 07/11/2023 14:00 EST 10,000 - 50,000 cfu/ml Mixed growth consistent with normal urogenital kishore. Performing Locations *1: This test was performed at: [facility], [address] [place] [address], [address]- , [facility] ([place])05-30-2023 Miscellaneous Notes* Telephone Encounter - Kelly [...] you. Kelly Zelaya RN. documented in this encounterDiley Ridge Medical Center12-12-2023 Miscellaneous Notes* Telephone Encounter - Isabella Hdz LPN - 05/30/2023 2:39 PM EST Pharmacy calling requesting refills. Advises that pt just got discharged from retirement and theywould like to deliver these meds tomorrow if possible. Last refill Flomax and Proscar 02/28/23 Qty: 30 with 1 refill Last refill lidocaine patches 09/30/22 Qty: 15 with 0 refills JEANNINE 08/27/22 NOV none scheduled Isabella Hdz LPN documented in this encounterDiley Ridge Medical Center12-04-2023 Miscellaneous Notes* Telephone Encounter - Nani Webb LPN - 05/22/2023 10:17 AM EST Stella with [facility] called in and message below given. Stella's PH>[phone]. Nani Webb LPN * Telephone Encounter - Sammi Cleaning LPN - 05/19/2023 7:10 PM EST Message left on secure voicemail. Sammi Cleaning LPN * Telephone Encounter - Keara Shin MD - 05/19/2023 6:45 PM EST Okay verbal order * Telephone Encounter - Bing Delgado RN - 05/19/2023 1:33 PM EST Etta- [facility]- reports patient will be discharged today with orders for SN & PT. would like to see patient this weekend, and no later than Monday. Requesting verbal order to follow for [facility]. Please phone Etta with verbal: [phone] documented in this encounterDiley Ridge Medical Center10-17-2023 Discharge summary Author Frankie Galindo [facility] April 04, 2023 10:02am Note Date/Time April 04, 2023 9 :21am [facility] Medical Records Department [address] [place] [address] Transfer to [facility] MR#: [id number] Acct: [id number] Name: PEDRO PABLO SIERRA Rep #:[id number] : 1950 72 From: Frankie Galindo MD PCP: Dr. Daija Morton MD Status:ADM I N Certification of patient admission REQUIRED AT TIME OF ADMISSION. I CERTIFY THAT POST-HOSPITAL ECF SERVICES ARE REQUIRED TO BE GIVEN ON AN IN-PATIENT BASIS BECAUSE OF THE ABOVE NAMED PATIENT'S NEED FOR CUSTODIAL CARE ON A CONTINUING BASIS FOR THE CONDITION(S) FOR WHICH HE/SHE WAS RECEIVING IN-PATIENT HOSPITAL SERVICES PRIOR TO HIS/HER TRANSFER TO THE [facility]. 04/04/23 1002<Electronically signed by Frankie Galindo MD> [...] Requested for PT OT eval and social work manager to assist with discharge planning 3. 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 Will provide chocolate ensure compact tid [...] cbc while on iv abx. Fax to [phone] sennosides-docusate sodium [Stool Softener-Stimulant Laxat] 8.6-50 mg [...] in before D/C Order can be placed): Residential Facility (1) UTI (urinary tract infection) Qualifiers: Urinary tract infection type: acute cystitis Hematuria presence: without hematuria Qualified Code(s): N30.00 - Acute cystitis without hematuria 04/04/23 1002 <Electronically signed by Frankie Galindo MD> Cosigner Signature (if applicable): CC: Dr. Daija Morton MD; Dr. Fran Cartwright MD; Dr. Celia Toribio MD; Dr. Elton Moore MD ~ [facility] Work Phone: 1(343) 765-639610-17-2023 Progress note Author Frankie Galindo [facility] April 04, 2023 9:21am Note Date/Time April 04, 2023 7 :31am [facility] Medical Records Department [address] [place] [address] Progress Note - Hospitalist 04/04/23 0731 MR#: [id number] Acct: [id number] Name: PEDRO PABLO SIERRA Rep #:[id number] : 1950 72 From: Frankie Galindo MD PCP: Dr. Daija Morton MD Status:ADM I N Location: [place] [address] Reason for Visit Reason for Visit: Diagnoses [...] % (Auto) 64.4, Lymph % (Auto) 23.6, Wayne % (Auto) 6.3, Eos % (Auto) 3.3, [...] Requested for PT OT eval and social work manager to assist with discharge planning 3. Chronic [...] documentation, 36minutes. Charges/Coding Visit Charges Inpatient E&M: 92257 Subs Hosp L2 04/04/23 0921 <Electronically signed by Frankie Galindo MD> Cosigner Signature (if applicable): CC: ~ Signed [facility] Work Phone: 1(950) 953-559210-16-2023 Consult note Author [facility] April 03, 2023 5:06pm Note Date/Time April 03, 2023 5 :04pm [facility] Medical Records Department [address] [place] [address] Consultation - Infectious Dx 04/03/23 1703 MR#: [id number] Acct: [id number] Name: PEDRO PABLO SIERRA Rep #:[id number] : 1950 72 From: Elton pierce MD PCP: Dr. Daija Morton MD Status:ADM I N Location: [place] [address]1 Assessment & Plan Assessment/Plan (1) Acute UTI: PLAN: esbl ecoli uti - on meropenem. Will order midline and 7 more days ertapenem with weekly labs. Will follw, thank youi HPI Consult Data Date of Consult: 04/03/23 HPI Narrative Reason for Consultation: uti HPI Narrative: PEDRO PABLO SIERRA, is a 72 M who presented with several days weakness, falls, dysuria, fatigue. Admitted on ceftriaxone, now on meropenem. Dysuria improved, no fever here. No abd pain. Full ROS performed and neg except as noted above. [facility] Medical History Asthma Atrial fibrillation Chronic [...] % (Auto) 63.8, Lymph % (Auto) 22.5, Wayne% (Auto) 7.6, Eos % (Auto) 3.9, Baso [...] Toribio MD; Dr. Elton Moore MD~ Signed [facility] Work Phone: 1(989) 999-618610-16-2023 Progress note Author Frankie Galindo [facility] April 03, 2023 10:50am Note Date/Time April 03, 2023 1 0:51am [facility] Medical Records Department [address] [place] [address] Progress Note - Hospitalist 04/03/23 1046 MR#: [id number] Acct: [id number] Name: PEDRO PABLO SIERRA Rep #:[id number] : 1950 72 From: Frankie Galindo MD PCP: Dr. Daija Morton MD Status:ADM I N Location: [place] [address] Reason for Visit Reason for Visit: Diagnoses [...] % (Auto) 63.8, Lymph % (Auto) 22.5, Wayne% (Auto) 7.6, Eos % (Auto) 3.9, Baso [...] Requested for PT OT eval and social work manager to assist with discharge planning 3. Chronic [...] documentation, 36minutes. Charges/Coding Visit Charges Inpatient E&M: 16960 Subs Hosp L2 04/03/23 1050 <Electronically signed by Frankie Galindo MD> Cosigner Signature (if applicable): CC: ~ Signed [facility] Work Phone: 1(199) 940-638710-15-2023 Progress note Author Frankie Galindo [facility] April 02, 2023 9:12am Note Date/Time April 02, 2023 7 :35am [facility] Medical Records Department [address] [place] [address] Progress Note - Hospitalist 04/02/23 0735 MR#: [id number] Acct: [id number] Name: PEDRO PABLO SIERRA Rep #:[id number] : 1950 72 From: Frankie Galindo MD PCP: Dr. Daija Morton MD Status:ADM I N Location: [place] [address] Reason for Visit Reason for Visit: Diagnoses [...] % (Auto) 58.6, Lymph % (Auto) 23.5, Wayne % (Auto) 11.2 H, Eos % (Auto) [...] Requested for PT OT eval and social work manager to assist with discharge planning 3. Chronic [...] Cosigner Signature (if applicable): CC: ~ Signed [facility] Work Phone: 1(424) 836-471610-15-2023 Progress note Author Fran Cartwright [facility] April 02, 2023 6:53am Note Date/Time April 02, 2023 6 :53am [facility] Medical Records Department [address] [place] [address] Progress Note 04/02/23651 MR#: [id number] Acct: [id number] Name: PEDRO PABLO SIERRA Rep #:[id number] : 1950 72 From: Fran Cartwright MD PCP: Dr. Daija Morton MD Status:ADM I N Location: [place] [address] Progress Note Urine culture returned positive for ESBL E. coli. E. coli is however sensitive to Zosyn in vitro. Cannot be certain whether E. coli will be sensitive in vivo. Zosyn discontinued. Started on Merrem, adjusted for creatinine clearance. 04/02/23652 <Electronically signed by Fran Cartwright MD> Fran Cartwright MD Cosigner Signature (if applicable): CC: ~ Signed [facility] Work Phone: 1(889) 654-729710-14-2023 Progress note Author Frankie Galindo [facility] April 01, 2023 10:02am Note Date/Time April 01, 2023 7 :53am [facility] Medical Records Department [address] [place] [address] Progress Note - Hospitalist 04/01/23 075 MR#: [id number] Acct: [id number] Name: PEDRO PABLO SIERRA Rep #:[id number] : 1950 72 From: Frankie Galindo MD PCP: Dr. Daija Morton MD Status:ADM I N Location: [place] [address] Reason for Visit Reason for Visit: Diagnoses [...] (Auto) 70.2 H, Lymph % (Auto) 15.3 L,Wayne % (Auto) 11.0 H, Eos % (Auto) [...] Requested for PT OT eval and social work manager to assist with discharge planning 3. Chronic [...] documentation, 36minutes. Charges/Coding Visit Charges Inpatient E&M: 06145 Subs Hosp L2 04/01/23 1002 <Electronically signed by Frankie Galindo MD> Cosigner Signature (if applicable): CC: ~ Signed [facility] Work Phone: 1(139) 652-138110-13-2023 Progress note Author Celia Toribio [facility] March 31, 2023 11:24am Note Date/Time March 31, 2023 7 :18am [facility] Medical Records Department [address] [place] [address] Progress Note - Hospitalist 03/31/23711 MR#: [id number] Acct: [id number] Name: PEDRO PABLO SIERRA Rep #:[id number] : 1950 72 From: Celia Toribio MD PCP: Dr. Daija Morton MD Status:ADM I N Location: [place] [address] Reason for Visit Reason for Visit: Diagnoses [...] Std Deviation 50.3 H, RDW Coeff of Ayl 13.9, Plt Count 276, MPV 9.8, Immature Gran % (Auto) 0.300, Neut % (Auto) 79.2 H, Lymph % (Auto) 9.3 L, Wayne % (Auto) 10.5 H, Eos % (Auto) [...] Sl. Cloudy, Urine pH 6.0, Ur Specific Marshall 1.020, Urine Protein 100 H, Urine Glucose [...] Reading Location ID and State: 693 / [employer] , Service support , Shoulder X-Ray 03/30/23 15:46 IMPRESSION: Mild degenerative disease as described with no acute fracture or subluxation. Electronically Signed: Irish Velásquez MD at 17:15 EDT Reading Location ID and State: 693 / [employer] , Service support , Thoracic Spine CT 03/30/23 15:46 IMPRESSION: Diffuse osteopenia/osteoporosis with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 Narrative* [...] Neurotoin BID at home Patient started on [place] postoperatively, pain controlled at time of discharge. Ischemia of extremity 10/14/2013 02/10/2014 Overview: - admitted to PSYCHIATRIC vascular surgery twice in October 2013, s/p left femoral endarterectomy with patch, US guided access RCFA, L profundaplasty, RUFUS recanalization & stenting, CRISPIN stenting on 10/23/13 for aorto-occlusive critical limb ischemia - S/p 11/12-11/19/13 PSYCHIATRIC Vascular Surgery for aortoiliac thrombosis (BLE pain), [...] of this encounter (statuses as of 09/15/2021) [facility]04-24-2020 History of Past illness Narrative* [...] Neurotoin BID at home Patient started on [place] postoperatively, pain controlled at time of discharge. Ischemia of extremity 10/14/2013 02/10/2014 Overview: - admitted to PSYCHIATRIC vascular surgery twice in October 2013, s/p left femoral endarterectomy with patch, US guided access RCFA, L profundaplasty, RUFUS recanalization & stenting, CRISPIN stenting on 10/23/13 for aorto-occlusive critical limb ischemia - S/p 11/12-11/19/13 PSYCHIATRIC Vascular Surgery for aortoiliac thrombosis (BLE pain), [...] of this encounter (statuses as of 09/15/2021) [facility]04-24-2020 History of Past illness Narrative* [...] Neurotoin BID at home Patient started on [place] postoperatively, pain controlled at time of discharge. Ischemia of extremity 10/14/2013 02/10/2014 Overview: - admitted to PSYCHIATRIC vascular surgery twice in October 2013, s/p left femoral endarterectomy with patch, US guided access RCFA, L profundaplasty, RUFUS recanalization & stenting, CRISPIN stenting on 10/23/13 for aorto-occlusive critical limb ischemia - S/p 11/12-11/19/13 PSYCHIATRIC Vascular Surgery for aortoiliac thrombosis (BLE pain), [...] of this encounter (statuses as of 09/16/2021) [facility]04-24-2020 History of Past illness Narrative* [...] Neurotoin BID at home Patient started on [place] postoperatively, pain controlled at time of discharge. Ischemia of extremity 10/14/2013 02/10/2014 Overview: - admitted to PSYCHIATRIC vascular surgery twice in October 2013, s/p left femoral endarterectomy with patch, US guided access RCFA, L profundaplasty, RUFUS recanalization & stenting, CRISPIN stenting on 10/23/13 for aorto-occlusive critical limb ischemia - S/p 11/12-11/19/13 PSYCHIATRIC Vascular Surgery for aortoiliac thrombosis (BLE pain), [...] of this encounter (statuses as of 09/16/2021) [facility]04-24-2020 History of Past illness Narrative* [...] Neurotoin BID at home Patient started on [place] postoperatively, pain controlled at time of discharge. Ischemia of extremity 10/14/2013 02/10/2014 Overview: - admitted to PSYCHIATRIC vascular surgery twice in October 2013, s/p left femoral endarterectomy with patch, US guided access RCFA, L profundaplasty, RUFUS recanalization & stenting, CRISPIN stenting on 10/23/13 for aorto-occlusive critical limb ischemia - S/p 11/12-11/19/13 PSYCHIATRIC Vascular Surgery for aortoiliac thrombosis (BLE pain), [...] of this encounter (statuses as of 09/17/2021) [facility]04-24-2020 History of Past illness Narrative* [...] Neurotoin BID at home Patient started on [place] postoperatively, pain controlled at time of discharge. Ischemia of extremity 10/14/2013 02/10/2014 Overview: - admitted to PSYCHIATRIC vascular surgery twice in October 2013, s/p left femoral endarterectomy with patch, US guided access RCFA, L profundaplasty, RUFUS recanalization & stenting, CRISPIN stenting on 10/23/13 for aorto-occlusive critical limb ischemia - S/p 11/12-11/19/13 PSYCHIATRIC Vascular Surgery for aortoiliac thrombosis (BLE pain), [...] of this encounter (statuses as of 09/17/2021) [facility]04-24-2020 History of Past illness Narrative* [...] Neurotoin BID at home Patient started on [place] postoperatively, pain controlled at time of discharge. Ischemia of extremity 10/14/2013 02/10/2014 Overview: - admitted to PSYCHIATRIC vascular surgery twice in October 2013, s/p left femoral endarterectomy with patch, US guided access RCFA, L profundaplasty, RUFUS recanalization & stenting, CRISPIN stenting on 10/23/13 for aorto-occlusive critical limb ischemia - S/p 11/12-11/19/13 PSYCHIATRIC Vascular Surgery for aortoiliac thrombosis (BLE pain), [...] of this encounter (statuses as of 09/17/2021) [facility]04-[facility]2020 History of Past illness Narrative* [...] Neurotoin BID at home Patient started on [place] postoperatively, pain controlled at time of discharge. Ischemia of extremity 10/14/2013 02/10/2014 Overview: - admitted to PSYCHIATRIC vascular surgery twice in October 2013, s/p left femoral endarterectomy with patch, US guided access RCFA, L profundaplasty, RUFUS recanalization & stenting, RCISPIN stenting on 10/23/13 for aorto-occlusive critical limb ischemia - S/p 11/12-11/19/13 PSYCHIATRIC Vascular Surgery for aortoiliac thrombosis (BLE pain), [...] of this encounter (statuses as of 09/18/2021) [facility]04-[facility] History of Past illness Narrative* [...] Neurotoin BID at home Patient started on [place] postoperatively, pain controlled at time of discharge. Ischemia of extremity 10/14/2013 02/10/2014 Overview: - admitted to PSYCHIATRIC vascular surgery twice in October 2013, s/p left femoral endarterectomy with patch, US guided access RCFA, L profundaplasty, RUFUS recanalization & stenting, CRISPIN stenting on 10/23/13 for aorto-occlusive critical limb ischemia - S/p 11/12-11/19/13 PSYCHIATRIC Vascular Surgery for aortoiliac thrombosis (BLE pain), [...] of this encounter (statuses as of 09/20/2021) [facility]04-[facility] History of Past illness Narrative* [...] Neurotoin BID at home Patient started on [place] postoperatively, pain controlled at time of discharge. Ischemia of extremity 10/14/2013 02/10/2014 Overview: - admitted to PSYCHIATRIC vascular surgery twice in October 2013, s/p [...] of this encounter (statuses as of 09/21/2021) [facility]04[facility] History of Past illness Narrative* [...] Neurotoin BID at home Patient started on [place] postoperatively, pain controlled at time of discharge. Ischemia of extremity 10/14/2013 02/10/2014 Overview: - admitted to PSYCHIATRIC vascular surgery twice in October 2013, s/p [...] of this encounter (statuses as of 09/22/2021) [facility]04[facility] History of Past illness Narrative* [...] Neurotoin BID at home Patient started on [place] postoperatively, pain controlled at time of discharge. Ischemia of extremity 10/14/2013 02/10/2014 Overview: - admitted to PSYCHIATRIC vascular surgery twice in October 2013, s/p [...] of this encounter (statuses as of 09/29/2021) [facility] History of Past illness Narrative* [...] Neurotoin BID at home Patient started on [place] postoperatively, pain controlled at time of discharge. [...] of this encounter (statuses as of 10/04/2021) [facility]04[facility] History of Past illness Narrative* [...] Neurotoin BID at home Patient started on [place] postoperatively, pain controlled at time of discharge. Ischemia of extremity 10/14/2013 02/10/2014 Overview: - admitted to PSYCHIATRIC vascular surgery twice in October 2013, s/p left femoral endarterectomy with patch, US guided access RCFA, L profundaplasty, RUFUS recanalization & stenting, CRISPIN stenting on 10/23/13 for aorto-occlusive critical limb ischemia - S/p 11/12-11/19/13 PSYCHIATRIC Vascular Surgery for aortoiliac thrombosis (BLE pain), [...] of this encounter (statuses as of 10/06/2021) [facility]04[facility] History of Past illness Narrative* [...] Neurotoin BID at home Patient started on [place] postoperatively, pain controlled at time of discharge. Ischemia of extremity 10/14/2013 02/10/2014 Overview: - admitted to PSYCHIATRIC vascular surgery twice in October 2013, s/p left femoral endarterectomy with patch, US guided access RCFA, L profundaplasty, RUFUS recanalization & stenting, CRISPIN stenting on 10/23/13 for aorto-occlusive critical limb ischemia - S/p 11/12-11/19/13 PSYCHIATRIC Vascular Surgery for aortoiliac thrombosis (BLE pain), [...] of this encounter (statuses as of 10/07/2021) [facility] History of Past illness Narrative* [...] Neurotoin BID at home Patient started on [place] postoperatively, pain controlled at time of discharge. Ischemia of extremity 10/14/2013 02/10/2014 Overview: - admitted to PSYCHIATRIC vascular surgery twice in October 2013, s/p left femoral endarterectomy with patch, US guided access RCFA, L profundaplasty, RUFUS recanalization & stenting, CRISPIN stenting on 10/23/13 for aorto-occlusive critical limb ischemia - S/p 11/12-11/19/13 PSYCHIATRIC Vascular Surgery for aortoiliac thrombosis (BLE pain), [...] of this encounter (statuses as of 10/07/2021) [facility] of Past illness Narrative* [...] Neurotoin BID at home Patient started on [place] postoperatively, pain controlled at time of discharge. Ischemia of extremity 10/14/2013 02/10/2014 Overview: - admitted to PSYCHIATRIC vascular surgery twice in October 2013, s/p left femoral endarterectomy with patch, US guided access RCFA, L profundaplasty, RUFUS recanalization & stenting, CRISPIN stenting on 10/23/13 for aorto-occlusive critical limb ischemia - S/p 11/12-11/19/13 PSYCHIATRIC Vascular Surgery for aortoiliac thrombosis (BLE pain), [...] of this encounter (statuses as of 10/08/2021) [facility]04[facility] History of Past illness Narrative* [...] Neurotoin BID at home Patient started on [place] postoperatively, pain controlled at time of discharge. Ischemia of extremity 10/14/2013 02/10/2014 Overview: - admitted to PSYCHIATRIC vascular surgery twice in October 2013, s/p left femoral endarterectomy with patch, US guided access RCFA, L profundaplasty, RUFUS recanalization & stenting, CRISPIN stenting on 10/23/13 for aorto-occlusive critical limb ischemia - S/p 11/12-11/19/13 PSYCHIATRIC Vascular Surgery for aortoiliac thrombosis (BLE pain), [...] of this encounter (statuses as of 10/13/2021) [facility]04[facility] History of Past illness Narrative* [...] Neurotoin BID at home Patient started on [place] postoperatively, pain controlled at time of discharge. Ischemia of extremity 10/14/2013 02/10/2014 Overview: - admitted to PSYCHIATRIC vascular surgery twice in October 2013, s/p [...] of this encounter (statuses as of 10/13/2021) [facility]04[facility] History of Past illness Narrative* [...] Neurotoin BID at home Patient started on [place] postoperatively, pain controlled at time of discharge. Ischemia of extremity 10/14/2013 02/10/2014 Overview: - admitted to PSYCHIATRIC vascular surgery twice in October 2013, s/p left femoral endarterectomy with patch, US guided access RCFA, L profundaplasty, RUFUS recanalization & stenting, CRISPIN stenting on 10/23/13 for aorto-occlusive critical limb ischemia - S/p 11/12-11/19/13 PSYCHIATRIC Vascular Surgery for aortoiliac thrombosis (BLE pain), [...] of this encounter (statuses as of 10/14/2021) [facility]04[facility] of Past illness Narrative* [...] Neurotoin BID at home Patient started on [place] postoperatively, pain controlled at time of discharge. Ischemia of extremity 10/14/2013 02/10/2014 Overview: - admitted to PSYCHIATRIC vascular surgery twice in October 2013, s/p [...] of this encounter (statuses as of 10/18/2021) [facility]04[facility] of Past illness Narrative* [...] Neurotoin BID at home Patient started on [place] postoperatively, pain controlled at time of discharge. Ischemia of extremity 10/14/2013 02/10/2014 Overview: - admitted to PSYCHIATRIC vascular surgery twice in October 2013, s/p left femoral endarterectomy with patch, US guided access RCFA, L profundaplasty, RUFUS recanalization & stenting, CRISPIN stenting on 10/23/13 for aorto-occlusive critical limb ischemia - S/p 11/12-11/19/13 PSYCHIATRIC Vascular Surgery for aortoiliac thrombosis (BLE pain), [...] of this encounter (statuses as of 10/21/2021) [facility] of [facility] illness Narrative* [...] Neurotoin BID at home Patient started on [place] postoperatively, pain controlled at time of discharge. Ischemia of extremity 10/14/2013 02/10/2014 Overview: - admitted to PSYCHIATRIC vascular surgery twice in October 2013, s/p [...] of this encounter (statuses as of 10/21/2021) [facility] of [facility] illness Narrative* [...] Neurotoin BID at home Patient started on [place] postoperatively, pain controlled at time of discharge. Ischemia of extremity 10/14/2013 02/10/2014 Overview: - admitted to F vascular surgery twice in October 2013, s/p left femoral endarterectomy with patch, US guided access RCFA, L profundaplasty, RUFUS recanalization & stenting, CRISPIN stenting on 10/23/13 for aorto-occlusive critical limb ischemia - S/p 11/12-11/19/13 PSYCHIATRIC Vascular Surgery for aortoiliac thrombosis (BLE pain), [...] of this encounter (statuses as of 10/22/2021) [facility] of [facility] illness Narrative* [...] Neurotoin BID at home Patient started on [place] postoperatively, pain controlled at time of discharge. Ischemia of extremity 10/14/2013 02/10/2014 Overview: - admitted to PSYCHIATRIC vascular surgery twice in October 2013, s/p [...] of this encounter (statuses as of 10/22/2021) [facility] of [facility] illness Narrative* [...] Neurotoin BID at home Patient started on [place] postoperatively, pain controlled at time of discharge. Ischemia of extremity 10/14/2013 02/10/2014 Overview: - admitted to PSYCHIATRIC vascular surgery twice in October 2013, s/p [...] of this encounter (statuses as of 10/22/2021) [facility] of [facility] illness Narrative* [...] Neurotoin BID at home Patient started on [place] postoperatively, pain controlled at time of discharge. Ischemia of extremity 10/14/2013 02/10/2014 Overview: - admitted to PSYCHIATRIC vascular surgery twice in October 2013, s/p [...] of this encounter (statuses as of 10/27/2021) [facility] of [facility] illness Narrative* [...] Neurotoin BID at home Patient started on [place] postoperatively, pain controlled at time of discharge. Ischemia of extremity 10/14/2013 02/10/2014 Overview: - admitted to PSYCHIATRIC vascular surgery twice in October 2013, s/p left femoral endarterectomy with patch, US guided access RCFA, L profundaplasty, RUFUS recanalization & stenting, CRISPIN stenting on 10/23/13 for aorto-occlusive critical limb ischemia - S/p 11/12-11/19/13 PSYCHIATRIC Vascular Surgery for aortoiliac thrombosis (BLE pain), [...] of this encounter (statuses as of 11/08/2021) [facility] of [facility] illness Narrative* [...] Neurotoin BID at home Patient started on [place] postoperatively, pain controlled at time of discharge. Ischemia of extremity 10/14/2013 02/10/2014 Overview: - admitted to PSYCHIATRIC vascular surgery twice in October 2013, s/p [...] of this encounter (statuses as of 11/08/2021) [facility] of [facility] illness Narrative* [...] Neurotoin BID at home Patient started on [place] postoperatively, pain controlled at time of discharge. Ischemia of extremity 10/14/2013 02/10/2014 Overview: - admitted to PSYCHIATRIC vascular surgery twice in October 2013, s/p left femoral endarterectomy with patch, US guided access RCFA, L profundaplasty, RUFUS recanalization & stenting, CRISPIN stenting on 10/23/13 for aorto-occlusive critical limb ischemia - S/p 11/12-11/19/13 PSYCHIATRIC Vascular Surgery for aortoiliac thrombosis (BLE pain), [...] of this encounter (statuses as of 11/11/2021) [facility] of [facility] illness Narrative* [...] Neurotoin BID at home Patient started on [place] postoperatively, pain controlled at time of discharge. Ischemia of extremity 10/14/2013 02/10/2014 Overview: - admitted to PSYCHIATRIC vascular surgery twice in October 2013, s/p [...] of this encounter (statuses as of 11/12/2021) [facility] of [facility] illness Narrative* [...] Neurotoin BID at home Patient started on [place] postoperatively, pain controlled at time of discharge. Ischemia of extremity 10/14/2013 02/10/2014 Overview: - admitted to PSYCHIATRIC vascular surgery twice in October 2013, s/p left femoral endarterectomy with patch, US guided access RCFA, L profundaplasty, RUFUS recanalization & stenting, CRISPIN stenting on 10/23/13 for aorto-occlusive critical limb ischemia - S/p 11/12-11/19/13 PSYCHIATRIC Vascular Surgery for aortoiliac thrombosis (BLE pain), [...] of this encounter (statuses as of 11/16/2021) [facility] of [facility] illness Narrative* [...] Neurotoin BID at home Patient started on [place] postoperatively, pain controlled at time of discharge. Ischemia of extremity 10/14/2013 02/10/2014 Overview: - admitted to PSYCHIATRIC vascular surgery twice in October 2013, s/p [...] of this encounter (statuses as of 11/17/2021) [facility] illness Narrative* [...] Neurotoin BID at home Patient started on [place] postoperatively, pain controlled at time of discharge. Ischemia of extremity 10/14/2013 02/10/2014 Overview: - admitted to PSYCHIATRIC vascular surgery twice in October 2013, s/p left femoral endarterectomy with patch, US guided access RCFA, L profundaplasty, RUFUS recanalization & stenting, CRISPIN stenting on 10/23/13 for aorto-occlusive critical limb ischemia - S/p 11/12-11/19/13 PSYCHIATRIC Vascular Surgery for aortoiliac thrombosis (BLE pain), [...] of this encounter (statuses as of 11/17/2021) [facility]04-24-2020 History of Past illness Narrative* [...] Neurotoin BID at home Patient started on [place] postoperatively, pain controlled at time of discharge. [...] of this encounter (statuses as of 11/18/2021) [facility]04-24-2020 History of Past illness Narrative* [...] Neurotoin BID at home Patient started on [place] postoperatively, pain controlled at time of discharge. Ischemia of extremity 10/14/2013 02/10/2014 Overview: - admitted to PSYCHIATRIC vascular surgery twice in October 2013, s/p left femoral endarterectomy with patch, US guided access RCFA, L profundaplasty, RUFUS recanalization & stenting, CRISPIN stenting on 10/23/13 for aorto-occlusive critical limb ischemia - S/p 11/12-11/19/13 PSYCHIATRIC Vascular Surgery for aortoiliac thrombosis (BLE pain), [...] of this encounter (statuses as of 11/19/2021) [facility]04-24-2020 History of Past illness Narrative* [...] Neurotoin BID at home Patient started on [place] postoperatively, pain controlled at time of discharge. Ischemia of extremity 10/14/2013 02/10/2014 Overview: - admitted to PSYCHIATRIC vascular surgery twice in October 2013, s/p left femoral endarterectomy with patch, US guided access RCFA, L profundaplasty, RUFUS recanalization & stenting, CRISPIN stenting on 10/23/13 for aorto-occlusive critical limb ischemia - S/p 11/12-11/19/13 PSYCHIATRIC Vascular Surgery for aortoiliac thrombosis (BLE pain), [...] of this encounter (statuses as of 11/19/2021) [facility]04-24-2020 History of Past illness Narrative* [...] Neurotoin BID at home Patient started on [place] postoperatively, pain controlled at time of discharge. Ischemia of extremity 10/14/2013 02/10/2014 Overview: - admitted to PSYCHIATRIC vascular surgery twice in October 2013, s/p left femoral endarterectomy with patch, US guided access RCFA, L profundaplasty, RUFUS recanalization & stenting, CRISPIN stenting on 10/23/13 for aorto-occlusive critical limb ischemia - S/p 11/12-11/19/13 PSYCHIATRIC Vascular Surgery for aortoiliac thrombosis (BLE pain), [...] of this encounter (statuses as of 11/26/2021) [facility]04-24-2020 History of Past illness Narrative* [...] Neurotoin BID at home Patient started on [place] postoperatively, pain controlled at time of discharge. Ischemia of extremity 10/14/2013 02/10/2014 Overview: - admitted to PSYCHIATRIC vascular surgery twice in October 2013, s/p left femoral endarterectomy with patch, US guided access RCFA, L profundaplasty, RUFUS recanalization & stenting, CRISPIN stenting on 10/23/13 for aorto-occlusive critical limb ischemia - S/p 11/12-11/19/13 PSYCHIATRIC Vascular Surgery for aortoiliac thrombosis (BLE pain), [...] of this encounter (statuses as of 11/30/2021) [facility]04-24-2020 History of Past illness Narrative* [...] Neurotoin BID at home Patient started on [place] postoperatively, pain controlled at time of discharge. Ischemia of extremity 10/14/2013 02/10/2014 Overview: - admitted to PSYCHIATRIC vascular surgery twice in October 2013, s/p left femoral endarterectomy with patch, US guided access RCFA, L profundaplasty, RUFUS recanalization & stenting, CRISPIN stenting on 10/23/13 for aorto-occlusive critical limb ischemia - S/p 11/12-11/19/13 PSYCHIATRIC Vascular Surgery for aortoiliac thrombosis (BLE pain), [...] of this encounter (statuses as of 12/03/2021) [facility]04-24-2020 History of Past illness Narrative* [...] Neurotoin BID at home Patient started on [place] postoperatively, pain controlled at time of discharge. Ischemia of extremity 10/14/2013 02/10/2014 Overview: - admitted to PSYCHIATRIC vascular surgery twice in October 2013, s/p left femoral endarterectomy with patch, US guided access RCFA, L profundaplasty, RUFUS recanalization & stenting, CRISPIN stenting on 10/23/13 for aorto-occlusive critical limb ischemia - S/p 11/12-11/19/13 PSYCHIATRIC Vascular Surgery for aortoiliac thrombosis (BLE pain), [...] of this encounter (statuses as of 12/07/2021) [facility]04-24-2020 History of Past illness Narrative* [...] Neurotoin BID at home Patient started on [place] postoperatively, pain controlled at time of discharge. Ischemia of extremity 10/14/2013 02/10/2014 Overview: - admitted to PSYCHIATRIC vascular surgery twice in October 2013, s/p [...] of this encounter (statuses as of 01/14/2022) [facility]04-24-2020 History of Past illness Narrative* [...] Neurotoin BID at home Patient started on [place] postoperatively, pain controlled at time of discharge. Ischemia of extremity 10/14/2013 02/10/2014 Overview: - admitted to PSYCHIATRIC vascular surgery twice in October 2013, s/p [...] of this encounter (statuses as of 01/14/2022) [facility]04-24-2020 History of Past illness Narrative* [...] Neurotoin BID at home Patient started on [place] postoperatively, pain controlled at time of discharge. Ischemia of extremity 10/14/2013 02/10/2014 Overview: - admitted to PSYCHIATRIC vascular surgery twice in October 2013, s/p left femoral endarterectomy with patch, US guided access RCFA, L profundaplasty, RUFUS recanalization & stenting, CRISPIN stenting on 10/23/13 for aorto-occlusive critical limb ischemia - S/p 11/12-11/19/13 PSYCHIATRIC Vascular Surgery for aortoiliac thrombosis (BLE pain), [...] of this encounter (statuses as of 01/25/2022) [facility]04-24-2020 History of Past illness Narrative* [...] Neurotoin BID at home Patient started on [place] postoperatively, pain controlled at time of discharge. Ischemia of extremity 10/14/2013 02/10/2014 Overview: - admitted to PSYCHIATRIC vascular surgery twice in October 2013, s/p left femoral endarterectomy with patch, US guided access RCFA, L profundaplasty, RUFUS recanalization & stenting, CRISPIN stenting on 10/23/13 for aorto-occlusive critical limb ischemia - S/p 11/12-11/19/13 PSYCHIATRIC Vascular Surgery for aortoiliac thrombosis (BLE pain), [...] of this encounter (statuses as of 01/28/2022) [facility]04-24-2020 History of Past illness Narrative* [...] Neurotoin BID at home Patient started on [place] postoperatively, pain controlled at time of discharge. Ischemia of extremity 10/14/2013 02/10/2014 Overview: - admitted to PSYCHIATRIC vascular surgery twice in October 2013, s/p left femoral endarterectomy with patch, US guided access RCFA, L profundaplasty, RUFUS recanalization & stenting, CRISPIN stenting on 10/23/13 for aorto-occlusive critical limb ischemia - S/p 11/12-11/19/13 PSYCHIATRIC Vascular Surgery for aortoiliac thrombosis (BLE pain), [...] of this encounter (statuses as of 01/31/2022) [facility]04-24-2020 History of Past illness Narrative* [...] Neurotoin BID at home Patient started on [place] postoperatively, pain controlled at time of discharge. Ischemia of extremity 10/14/2013 02/10/2014 Overview: - admitted to PSYCHIATRIC vascular surgery twice in October 2013, s/p left femoral endarterectomy with patch, US guided access RCFA, L profundaplasty, RUFUS recanalization & stenting, CRISPIN stenting on 10/23/13 for aorto-occlusive critical limb ischemia - S/p 11/12-11/19/13 PSYCHIATRIC Vascular Surgery for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 Primary [facility]* Diagnosis Medication management Encounter for long-term (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 of other medications Hyperlipidemia Other and unspecified hyperlipidemia [facility]* Diagnosis COPD with chronic bronchitis (HCC) Obstructive chronic bronchitis without exacerbation [facility] Diagnosis COPD with chronic bronchitis (HCC) Obstructive chronic bronchitis without exacerbation [facility]* Diagnosis COPD with chronic bronchitis (HCC)- Primary Obstructive chronic bronchitis without exacerbation Tobacco use disorder Pre-operative respiratory examination [facility]* Diagnosis PVD (peripheral vascular disease) (HCC) Peripheral vascular disease, unspecified [facility]* Diagnosis Preoperative cardiovascular examination- Primary Pre-operative cardiovascular examination Paroxysmal atrial fibrillation (HCC) Atrial fibrillation Coronary artery disease involving [place] coronary artery of [place] heart without angina pectoris Primary hypertension Unspecified essential hypertension Mixed hyperlipidemia PVD (peripheral vascular disease) (HCC) Peripheral vascular disease, unspecified Smoker Tobacco use disorder [facility]* Diagnosis Urinary tract infection without hematuria, site unspecified- Primary [facility]* Diagnosis Onset Date Resolution Status Abdominal pain acute Acute cholecystitis acute Biliary colic acute Biliary sludge determined by ultrasound acute Current use of anticoagulant therapy acute Transaminitis acute 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 Hypertension chronic Elevated blood pressure read ing in office with diagnosis of hypertension resolved Preop cardiovascular exam re solved ABLA (acute blood loss anemia) acute [facility] Work Phone: Evaluation note* Diagnosis Coronary artery disease, unspecified vessel or lesion type, unspecified whether angina present, unspecified whether [place] or transplanted heart PVD (peripheral vascular disease) (HCC) Peripheral vascular disease, unspecified [facility] Onset Date Resolution Status Abdominal pain acute Acute cholecystitis acute Biliary colic acute Biliary sludge determined by ultrasound acute Current use of anticoagulant therapy acute Transaminitis acute 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 Hypertension chronic Elevated blood pressure read ing in office with diagnosis of hypertension resolved Preop cardiovascular exam re solved ABLA (acute blood loss anemia) acute 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 History of atrial fibrillation chronic Hypertension chronic Iron deficiency anemia chron ic Peripheral vascular disease chronic [facility] Work Phone: Evaluation note* Diagnosis PVD (peripheral vascular disease) (HCC) Peripheral vascular disease, unspecified [facility] Diagnosis Onset Date Resolution Status Abdominal pain acute Acute cholecystitis acute Biliary colic acute Biliary sludge determined by ultrasound acute Current use of anticoagulant therapy acute Transaminitis acute 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 Hypertension chronic Elevated blood pressure read ing in office with diagnosis of hypertension resolved Preop cardiovascular exam re solved 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 History of atrial fibrillation chronic Hypertension chronic Iron deficiency anemia chron ic Peripheral vascular disease chronic ABLA (acute blood loss anemia) resolved [facility] Work Phone: Evaluation note* Diagnosis Onset Date Resolution Status 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 History of atrial fibrillation chronic Hypertension chronic Iron deficiency anemia chron ic Peripheral vascular disease chronic ABLA (acute blood loss anemia) resolved [facility] Work Phone: Evaluation note* Diagnosis Acute blood loss anemia- Primary Acute posthemorrhagic anemia Angiodysplasia of colon with hemorrhage Angiodysplasia of intestine with hemorrhage COPD with chronic bronchitis (HCC) Obstructive chronic bronchitis without exacerbation [facility] Tobacco abuse- Primary Tobacco use disorder Acute cholecystitis with chronic cholecystitis Acute and chronic cholecystitis Gallbladder perforation Perforation of gallbladder RUQ abdominal pain Abdominal pain, right upper quadrant Abnormal ultrasound of gallbladder Nonspecific (abnormal) findings on radiological and other examination of biliary tract [facility] Diagnosis Essential hypertension- Primary Unspecified essential hypertension Chest pain, unspecified type Acute nonintractable headache, unspecified headache type GI bleeding Acute posthemorrhagic anemia Anticoagulation goal of INR 2 to 3 Encounter for therapeutic drug monitoring documented in this encounter [facility] note* Diagnosis PVD (peripheral vascular disease) (HCC)- Primary Peripheral vascular disease, unspecified documented in this encounter [facility] note* Diagnosis Fall, sequela- Primary Closed fracture of multiple ribs of left side, sequela Pain Generalized pain documented in this encounter [facility] note* Diagnosis Medication management Encounter for long-term (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 of other medications Hyperlipidemia Other and unspecified hyperlipidemia documented in this encounter [facility] noteNo assessment information availableWOhio [facility] Surgical [facility] Work Phone: Evaluation note* Diagnosis Ambulatory [...] Other ill-defined conditions documented in this encounter [facility] note* Diagnosis Essential hypertension Unspecified essential hypertension documented in this encounter [facility] note* Diagnosis Peripheral arterial disease (HCC)- Primary Peripheral vascular disease, unspecified documented in this encounter [facility] note* Diagnosis Peripheral arterial disease (HCC)- Primary Peripheral vascular disease, unspecified PVD (peripheral vascular disease) (HCC) Peripheral vascular disease, unspecified documented in this encounter [facility] note* Diagnosis Onset Date Resolution Status Acute UTI acute Compression fracture of thoracic vertebra acute Inability to walk acute Multiple falls acute UTI (urinary tract infection) acute Weakness acute Chronic respiratory failure with hypoxia [facility] Work Phone: Evaluation note* Diagnosis COPD with chronic bronchitis Obstructive chronic bronchitis without exacerbation documented in this encounter [facility] note* Diagnosis Onset Date Resolution Status Acute UTI acute Compression fracture of thoracic vertebra acute Inability to walk acute Multiple falls acute UTI (urinary tract infection) acute Weakness acute Chronic respiratory failure with hypoxia chronic Closed fracture of right inferior pubic ramus acute Closed fracture of right superior pubic ramus acute Inability to walk acute Weakness acute Tobacco abuse [facility] Work Phone: Evaluation note* Diagnosis Onset [...] acute COPD with acute exacerbation chronic Hypertension [facility] Work Phone: Evaluation note* Diagnosis Onset [...] acute COPD with acute exacerbation chronic Hypertension [facility] Work Phone: Evaluation note* Diagnosis COPD with chronic bronchitis (HCC)- Primary Obstructive chronic bronchitis without exacerbation Other emphysema ([facility]) Other emphysema Chronic sore throat Chronic pharyngitis Smoking Tobacco use disorder Closed nondisplaced fracture of pelvis with routine healing, unspecified part of pelvis, subsequent encounter Mixed hyperlipidemia Hypertension, unspecified type [facility] Diagnosis Peripheral arterial disease (HCC)- Primary Peripheral vascular disease, unspecified [facility] Diagnosis Primary hypertension Unspecified essential hypertension Other emphysema (HCC) Other emphysema Left leg pain Pain in limb Anxiety and depression Dysthymic disorder Coronary artery disease involving [place] coronary artery of [place] heart without angina pectoris Peripheral arterial disease ([facility]) Peripheral vascular disease, unspecified BPH with obstruction/lower urinary tract symptoms Hypertrophy of prostate with urinary obstruction and other lower urinary tract symptoms (LUTS) Mixed hyperlipidemia Gastroesophageal reflux disease, unspecified whether esophagitis present [facility] Diagnosis COPD (chronic obstructive pulmonary disease) ([facility])- Primary Chronic airway obstruction, not elsewhere classified Urinary retention with incomplete bladder emptying Incomplete bladder emptying Anticoagulation goal of INR 2 to 3 Encounter for therapeutic drug monitoring PVD (peripheral vascular disease) ([facility]) Peripheral vascular disease, unspecified Encounter to establish care Other reasons for seeking consultation GI bleeding- Primary Acute posthemorrhagic anemia Lupus anticoagulant disorder (HCC) Primary hypercoagulable state Dysuria- Primary GI bleeding Acute posthemorrhagic anemia Lupus anticoagulant disorder (HCC) Primary hypercoagulable state PVD (peripheral vascular disease) ([facility]) Peripheral vascular disease, unspecified IBD (inflammatory bowel disease) Other and unspecified noninfectious gastroenteritis and colitis Blurring of vision Other specified visual disturbances Anticoagulation goal of INR 2 to 3 Encounter for therapeutic drug monitoring Hypertension Unspecified essential hypertension s/p left femoral endarterectomy/aortoiliac stenting 10/2013 Peripheral vascular disease, unspecified Elevated glucose Other abnormal glucose COPD (chronic obstructive pulmonary disease) ([facility]) Chronic airway obstruction, not elsewhere classified Back pain Backache, unspecified PVD (peripheral vascular disease) ([facility])- Primary Peripheral vascular disease, unspecified COPD (chronic obstructive pulmonary disease) ([facility]) Chronic airway obstruction, not elsewhere classified Anticoagulation goal of INR 2 to 3 Encounter for therapeutic drug monitoring Anemia due to acute blood loss Acute posthemorrhagic anemia Hypertension Unspecified essential hypertension Hyperlipidemia Other and unspecified hyperlipidemia Tobacco use disorder Ulcerative colitis ([facility])- Primary Ulcerative colitis, unspecified PVD (peripheral vascular disease) ([facility]) Peripheral vascular disease, unspecified Lupus anticoagulant disorder ([facility]) Primary hypercoagulable state Tobacco use disorder Melena Blood in stool COPD (chronic obstructive pulmonary disease) ([facility]) Chronic airway obstruction, not elsewhere classified Dark urine Other nonspecific finding on examination of urine Hospital discharge follow-up- Primary Other follow-up examination Hypertension Unspecified essential hypertension Hematoma, postoperative Hematoma complicating a procedure s/p left femoral endarterectomy/aortoiliac stenting 10/2013 Peripheral vascular disease, unspecified COPD (chronic obstructive pulmonary disease) ([facility]) Chronic airway obstruction, not elsewhere classified Melena Blood in stool Depression Depressive disorder, not elsewhere classified COPD (chronic obstructive pulmonary disease) ([facility])- Primary Chronic airway obstruction, not elsewhere classified [...] Coronary atherosclerosis of unspecified type of vessel, [place] or graft PVD (peripheral vascular disease) ([facility]) Peripheral vascular disease, unspecified Melena Blood in [...] unspecified vessel or lesion type, unspecified whether [place] or transplanted heart Mixed hyperlipidemia Essential hypertension [...] bronchitis without exacerbation [facility] Diagnosis COPD (chronic obstructive pulmonary disease) [...] abnormal glucose COPD (chronic obstructive pulmonary disease) ([facility]) Chronic airway obstruction, not elsewhere classified Back pain Backache, unspecified PVD (peripheral vascular disease) ([facility])- Primary Peripheral vascular disease, unspecified COPD (chronic obstructive pulmonary disease) ([facility]) Chronic airway obstruction, not elsewhere classified Anticoagulation goal of INR 2 to 3 Encounter for therapeutic drug monitoring Anemia due to acute blood loss Acute posthemorrhagic anemia Hypertension Unspecified essential hypertension Hyperlipidemia Other and unspecified hyperlipidemia Tobacco use disorder Ulcerative colitis ([facility])- Primary Ulcerative colitis, unspecified PVD (peripheral vascular disease) ([facility]) Peripheral vascular disease, unspecified Lupus anticoagulant disorder ([facility]) Primary hypercoagulable state Tobacco use disorder Melena Blood in stool COPD (chronic obstructive pulmonary disease) ([facility]) Chronic airway obstruction, not elsewhere classified Dark urine Other nonspecific finding on examination of urine Hospital discharge follow-up- Primary Other follow-up examination Hypertension Unspecified essential hypertension Hematoma, postoperative Hematoma complicating a procedure s/p left femoral endarterectomy/aortoiliac stenting 10/2013 Peripheral vascular disease, unspecified COPD (chronic obstructive pulmonary disease) ([facility]) Chronic airway obstruction, not elsewhere classified Melena Blood in stool Depression Depressive disorder, not elsewhere classified COPD (chronic obstructive pulmonary disease) ([facility])- Primary Chronic airway obstruction, not elsewhere classified [...] Coronary atherosclerosis of unspecified type of vessel, [place] or graft PVD (peripheral vascular disease) ([facility]) Peripheral vascular disease, unspecified Melena Blood in stool Depression Depressive disorder, not elsewhere classified Anticoagulation goal of INR 2 to 3- Primary Encounter for therapeutic drug monitoring PVD (peripheral vascular disease) ([facility]) Peripheral vascular disease, unspecified Hospital discharge follow-up Other follow-up examination Melena- Primary Blood in stool Essential hypertension Unspecified essential hypertension Tobacco use disorder Anxiety and depression Dysthymic disorder Essential hypertension- Primary Unspecified essential hypertension Smoker Tobacco use disorder Anxiety and depression Dysthymic disorder PVD (peripheral vascular disease) ([facility])- Primary Peripheral vascular disease, unspecified Tobacco use [...] unspecified vessel or lesion type, unspecified whether [place] or transplanted heart Mixed hyperlipidemia Essential hypertension [...] Pain in limb [facility] COPD (chronic obstructive pulmonary disease) ([facility])- Primary Chronic airway obstruction, not elsewhere classified Urinary retention with incomplete bladder emptying Incomplete bladder emptying Anticoagulation goal of INR 2 to 3 Encounter for therapeutic drug monitoring PVD (peripheral vascular disease) ([facility]) Peripheral vascular disease, unspecified Encounter to establish care Other reasons for seeking consultation GI bleeding- Primary Acute posthemorrhagic anemia Lupus anticoagulant disorder (HCC) Primary hypercoagulable state Dysuria- Primary GI bleeding Acute posthemorrhagic anemia Lupus anticoagulant disorder (HCC) Primary hypercoagulable state PVD (peripheral vascular disease) ([facility]) Peripheral vascular disease, unspecified IBD (inflammatory bowel disease) Other and unspecified noninfectious gastroenteritis and colitis Blurring of vision Other specified visual disturbances Anticoagulation goal of INR 2 to 3 Encounter for therapeutic drug monitoring Hypertension Unspecified essential hypertension s/p left femoral endarterectomy/aortoiliac stenting 10/2013 Peripheral vascular disease, unspecified Elevated glucose Other abnormal glucose COPD (chronic obstructive pulmonary disease) ([facility]) Chronic airway obstruction, not elsewhere classified Back pain Backache, unspecified PVD (peripheral vascular disease) ([facility])- Primary Peripheral vascular disease, unspecified COPD (chronic obstructive pulmonary disease) ([facility]) Chronic airway obstruction, not elsewhere classified Anticoagulation goal of INR 2 to 3 Encounter for therapeutic drug monitoring Anemia due to acute blood loss Acute posthemorrhagic anemia Hypertension Unspecified essential hypertension Hyperlipidemia Other and unspecified hyperlipidemia Tobacco use disorder Ulcerative colitis (HCC)- Primary Ulcerative colitis, unspecified PVD (peripheral vascular disease) ([facility]) Peripheral vascular disease, unspecified Lupus anticoagulant disorder (HCC) Primary hypercoagulable state Tobacco use disorder Melena Blood in stool COPD (chronic obstructive pulmonary disease) ([facility]) Chronic airway obstruction, not elsewhere classified Dark urine Other nonspecific finding on examination of urine Hospital discharge follow-up- Primary Other follow-up examination Hypertension Unspecified essential hypertension Hematoma, postoperative Hematoma complicating a procedure s/p left femoral endarterectomy/aortoiliac stenting 10/2013 Peripheral vascular disease, unspecified COPD (chronic obstructive pulmonary disease) ([facility]) Chronic airway obstruction, not elsewhere classified Melena Blood in stool Depression Depressive disorder, not elsewhere classified COPD (chronic obstructive pulmonary disease) ([facility])- Primary Chronic airway obstruction, not elsewhere classified [...] Coronary atherosclerosis of unspecified type of vessel, penobscot or graft PVD (peripheral vascular disease) ([facility]) Peripheral vascular disease, unspecified Melena Blood in stool Depression Depressive disorder, not elsewhere classified Anticoagulation goal of INR 2 to 3- Primary Encounter for therapeutic drug monitoring PVD (peripheral vascular disease) ([facility]) Peripheral vascular disease, unspecified Hospital discharge follow-up Other follow-up examination Melena- Primary Blood in stool Essential hypertension Unspecified essential hypertension Tobacco use disorder Anxiety and depression Dysthymic disorder Essential hypertension- Primary Unspecified essential hypertension Smoker Tobacco use disorder Anxiety and depression Dysthymic disorder PVD (peripheral vascular disease) ([facility])- Primary Peripheral vascular disease, unspecified Tobacco use disorder Pain in left shoulder Pain in joint, shoulder region Lupus anticoagulant disorder (HCC) Primary hypercoagulable state Pulmonary emphysema, unspecified emphysema type (HCC) Need for vaccination Need for prophylactic vaccination and inoculation against unspecified single disease Pre-operative examination- Primary Preoperative examination, unspecified PVD (peripheral vascular disease) ([facility]) Peripheral vascular disease, unspecified Coronary artery disease, angina presence unspecified, unspecified vessel or lesion type, unspecified whether [place] or transplanted heart Mixed hyperlipidemia Essential hypertension [...] hematuria, site unspecified [facility] Diagnosis Onset Date Resolution Status Admit Date Acute diarrhea acute August 25, 2024 6:12pm Debility acute August 25 6:12pm Weakness acute August 25 6:12pm 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 August 252024 6:12pm [facility] Work Phone: Evaluation note* Diagnosis COPD [...] Coronary atherosclerosis of unspecified type of vessel, penob[place] or graft PVD (peripheral vascular disease) Peripheral [...] unspecified vessel or lesion type, unspecified whether [place] or transplanted heart Mixed hyperlipidemia Essential hypertension [...] malaise and fatigue [facility] Diagnosis COPD (chronic obstructive [...] elsewhere classified COPD (chronic obstructive pulmonary disease) ([facility])- Primary Chronic airway obstruction, not elsewhere classified [...] Coronary atherosclerosis of unspecified type of vessel, penob[place]ot or graft PVD (peripheral vascular disease) Peripheral [...] unspecified vessel or lesion type, unspecified whether [place] or transplanted heart Mixed hyperlipidemia Essential hypertension [...] Educational circumstance Wheezing [facility] Diagnosis COPD (chronic obstructive [...] Coronary atherosclerosis of unspecified type of vessel, pen[place] or graft PVD (peripheral vascular disease) Peripheral [...] unspecified vessel or lesion type, unspecified whether [place] or transplanted heart Mixed hyperlipidemia Essential hypertension [...] supplemental oxygen [facility] Diagnosis COPD (chronic obstructive pulmonary disease) [...] Coronary atherosclerosis of unspecified type of vessel, [place] or graft PVD (peripheral vascular disease) Peripheral [...] unspecified vessel or lesion type, unspecified whether [place] or transplanted heart Mixed hyperlipidemia Essential hypertension [...] Shortness of breath [facility] Diagnosis COPD (chronic obstructive [...] abnormal glucose COPD (chronic obstructive pulmonary disease) ([facility]) Chronic airway obstruction, not elsewhere classified Back pain Backache, unspecified PVD (peripheral vascular disease)- Primary Peripheral vascular disease, unspecified COPD (chronic obstructive pulmonary disease) ([facility]) Chronic airway obstruction, not elsewhere classified Anticoagulation goal of INR 2 to 3 Encounter for therapeutic drug monitoring Anemia due to acute blood loss Acute posthemorrhagic anemia Hypertension Unspecified essential hypertension Hyperlipidemia Other and unspecified hyperlipidemia Tobacco use disorder Ulcerative colitis (HCC)- Primary Ulcerative colitis, unspecified PVD (peripheral vascular disease) Peripheral vascular disease, unspecified Lupus anticoagulant disorder ([facility]) Primary hypercoagulable state Tobacco use disorder Melena Blood in stool COPD (chronic obstructive pulmonary disease) ([facility]) Chronic airway obstruction, not elsewhere classified Dark urine Other nonspecific finding on examination of urine Hospital discharge follow-up- Primary Other follow-up examination Hypertension Unspecified essential hypertension Hematoma, postoperative Hematoma complicating a procedure s/p left femoral endarterectomy/aortoiliac stenting 10/2013 Peripheral vascular disease, unspecified COPD (chronic obstructive pulmonary disease) ([facility]) Chronic airway obstruction, not elsewhere classified Melena Blood in stool Depression Depressive disorder, not elsewhere classified COPD (chronic obstructive pulmonary disease) ([facility])- Primary Chronic airway obstruction, not elsewhere classified [...] Coronary atherosclerosis of unspecified type of vessel, penobscot or graft PVD (peripheral vascular disease) Peripheral [...] unspecified vessel or lesion type, unspecified whether pen[place] or transplanted heart Mixed hyperlipidemia Essential hypertension [...] and depression Dysthymic disorder Illiterate Educational circumstance Medication management Encounter for long-term (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 of other medications Hyperlipidemia Other and unspecified hyperlipidemia [facility] Author Fran Cartwright [facility] March 30, 2023 8:08pm Note Date/Time March 30, 2023 7 :32pm [facility] Medical Records Department [address] [place] [address] H&P Exam - Hospitalist 03/30/231931 MR#: [id number] Acct: [id number] Name: PEDRO PABLO SIERRA Rep #:[id number] : 1950 72 From: Fran Cartwright MD PCP: Dr. Daija Morton MD Status:ADM I N Location: [facility] [id number] HPI - General General Date of Admission: [...] patient has a burning sensation with urination. [facility] Medical History (Updated 03/30/23 @ 20:04 [...] 79.2 H, Lymph % (Auto) 9.3 L, Wayne % (Auto) 10.5 H, Eos % (Auto) [...] Sl. Cloudy, Urine pH 6.0, Ur Specific Marshall 1.020, Urine Protein 100 H, Urine Glucose [...] 17:15 EDT Reading Location ID and State: [employer] [facility] / [place] , Service support , Thoracic Spine CT 03/30/23 15:46 IMPRESSION: Diffuse osteopenia/osteoporosis with minimal compression fracture of T11, exact age indeterminate. No retropulsion or extension to the pedicles visualized. Underlying degenerative disease. No subluxation. Electronically Signed: Irish Velásquez MD at 17:12 EDT Reading Location ID and State: [employer] [facility] / [employer] , Service support , Chest X-Ray 03/30/23 [...] documentation, 70minutes. Charges/Coding Visit Charges Inpatient E&M: 53389 Init Hosp L3 03/30/232007 <Electronically signed by Fran Cartwright MD> Cosigner Signature (if applicable): CC: Dr. Daija Morton MD; Dr. Fran Cartwright MD~ Signed [facility] Work Phone: History and physical note Author нАдрей Cooley [facility] July 24, 2023 9:10pm Note Date/Time July 24, 2023 9 :10pm [facility] Medical Records Department [address] [place] [address] History & Physical Exam 07/24/232103 MR#: [id number] Acct: [id number] Name: PEDRO PABLO SIERRA Rep #:[id number] : 1950 73 From: Андрей Cooley MD [...] past medical history of recent discharge from retirement for debility and weakness. Patient does also have a history of long-term smoking. Patient denies any chest pain, shortness of breath fevers or chills at present time. He will be admitted for pain control and case management to arrange for [facility] care facility. [facility] Medical History Asthma Atrial fibrillation Chronic [...] 74.0 H, Lymph % (Auto) 16.0 L, Wayne % (Auto) 7.3, Eos % (Auto) 1.1, [...] 17:27 EST Reading Location ID and State: [facility] / [place] Tel , Service support , Assessment & [...] on anticoagulation Charges/Coding Visit Charges Inpatient E&M: 55015 Init Hosp L2 07/24/232109 <Electronically signed by Андрей Cooley MD> Cosigner Signature (if applicable): CC: Dr. Daija Morton MD; Dr. Андрей Cooley MD~ Signed [facility] Work Phone: History and physical note Author Lisha Talamantes [facility] Note Date/Time August 25, 2024 7:00 pm [facility] Medical Records Department [address] [place] [address] H&P Exam - Hospitalist 08/25/24 1820 MR#: [id number] Acct: [id number] Name: PEDRO PABLO SIERRA Rep #:[id number] : 1950 74 From: Lisha Talamantes DO PCP: Dr. Daija Morton MD Status:ADM I NO Location: [place] [id number] HPI - General General Date of Admission: 08/25/24 Date of Service: 08/25/24 Chief Complaint: Diarrhea/generalized weakness HPI Narrative PEDRO PABLO SIERRA, is a 74 M who presented to the emergency department [facility] on 08/25/2024 with a chief complaint of generalized weakness and diarrhea. Patient had recently been at [facility] and was discharged about 5 days [...] Chest x-ray is unremarkable for acute findings. [facility] Medical History Compression fx, lumbar [...] 78.4 H, Lymph % (Auto) 10.3 L, Wayne % (Auto) 9.9, Eos % (Auto) 0.3, [...] IMPRESSION: No acute airspace abnormality. [facility] Assessment & Plan Assessment/Plan (1) Acute diarrhea: [...] the current livingenvironment -Was recently discharged from [facility] however patient wasadamant that he did [...] need clarified Charges/Coding Visit Charges Inpatient E&M: 05260 Init Hosp L2 08/25/24 1900 <Electronically signed by Lisha Talamantes DO> Cosigner Signature (if applicable): CC: Dr. Daija Morton MD; Dr. Lisha Talamantes DO~ Signed [facility] Work Phone: History and physical note Author Shilpa Contreras [facility] Note Date/Time December 13, 2024 8:50 pm [facility] Medical Records Department [address] [place] [address] H&P Exam - Hospitalist 12/13/241948 MR#: [id number] Acct: [id number] Name: PEDRO PABLO SIERRA Rep #:[id number] : 1950 74 From: Shilpa Contreras MD PCP: Dr. Daija Morton MD Status:ADM I N Location: [place] [address] HPI - General General Date of Admission: [...] PJ, Tobacco use who presents to the [facility] ED on 12/13/2024 with history of worsening [...] component requested ABG and will trial BiPAP. [facility] Medical History Weakness Debility Failure to [...] % (Auto) 67.3, Lymph % (Auto) 19.5, Wayne% (Auto) 8.9, Eos % (Auto) 3.0, Baso [...] significant change since last exam. Reading Location: [id number] Assessment & Plan Assessment/Plan (1) COPD exacerbation: [...] PJ, Tobacco use who presents to the [facility] ED on 12/13/2024 with history of worsening [...] 0.9. #16. CODE status: Patient healthcare power consumer attorney and living will are not in place but he notes he would want his ex- Joseph to be his medical decision-maker if absolutely necessary. Discussed CODE status at length including difference between FULL code, DNR-CCA and DNR-CC status. Following discussions about the differences in these status, requested Full Code status. [facility] Care[facility]anning Face to Face Time: 16 minutes. Charges/Coding Visit Charges Inpatient E&M: 06432 Init Hosp L3 Procedures Hospitalists Procedures: 93673 Advncd Care Plan 30 Min 12/13/242049 <Electronically signed by Shilpa Contreras MD> Cosigner Signature (if applicable): CC: Dr. Shilpa Contreras MD; Dr. Daija Morton MD~ Signed [facility] Work Phone: [facility] instructions[facility] Work Phone: [facility] instructions[facility] Work Phone: [phone] Discharge instructionsOhio[facility]ide [facility] Work Phone: [phone] Discharge instructionsWOhio [facility] Work Phone: [phone] Discharge instructionsOhio[facility]ide [facility] Work Phone: [phone] Discharge instructionsWOhio Valley Surgical Hospital Work Phone: [phone] Discharge instructions Additional Instructions Ice to your rib cage. Support your sore ribs with a pillow. Your chest x-ray did not show any broken ribs sometimes however there are small cracks in the ribs we cannot see on the x-ray. [place] for more severe pain. Otherwise use Tylenol. If you are using the pain medication [place] then do not use Tylenol with it. Follow-up with your doctor as needed. Keep the wounds on your forearms clean. Clean daily with soap and water. Patient apply antibiotic ointment. Watch for any signs of infection if seen follow-up.[facility] Work Phone: Hospital Discharge instructions Additional Instructions Please use the walker and follow-up with your primary care doctor.[facility] Work Phone: Progress note No data available for this section [facility] Reason for referral (narrative)* Outpatient Procedure (Routine) - Closed Specialty Diagnoses / Procedures Referred By Contac t Referred To [facility] [place] Diagnoses COPD with chronic bronchitis (HCC) Procedures OXIMETRY WITH AMBULATION NONINVASIVE EAR/PULSE OXIMETRY MULTIPLE DETER Emilie Jauregui PA-C [address] [employer] [address] [address] [address] Referral ID Status Reason Start Date Expiration Date V isits Requested Visits Authorized [id number] Closed Auto-Generate d Referral 11/05/2021 06/18/2022 1 1 * Outpatient Procedure (Routine) - Closed Specialty Diagnoses / Procedures Referred By Contac t Referred To Contact [facility] Diagnoses COPD with chronic bronchitis (HCC) Procedures LUNG DIFFUSION CAPACITY (DLCO) DIFFUSING CAPACITY Emilie Jauregui PA-C [address] [employer] [address] [place] [address] [address] [address] Referral ID Status Reason Start Date Expiration Date V isits Requested Visits Authorized [id number] Closed Auto-Generate d Referral 11/05/2021 06/18/2022 1 1 * Outpatient Procedure (Routine) - Closed Specialty Diagnoses / Procedures Referred By Contac t Referred To Contact [facility] Diagnoses COPD with chronic bronchitis (HCC) Procedures SPIROMETRY BASELINE ONLY SPMTRY W/VC EXPIRATORY BRIAN W/WO MXML VOL VNTJ Emilie Jauregui PA-C [address] [facility] [address] [place] [address] Respiratory [place] [address] [place] [address] Referral ID Status Reason Start Date Expiration Date V isits Requested Visits Authorized [id number] Closed Auto-Generate d Referral 11/05/2021 06/18/2022 1 1 [facility] for referral (narrative)* Outpatient Procedure (Routine) - Pending Review Specialty Diagnoses / Procedures Referred By Contac t Referred To Contact [facility] [place] Diagnoses Essential hypertension Chest pain, unspecified type Procedures ECG COMPLETE ECG ROUTINE ECG W/LEAST 12 LDS W/I&R Anjel Braga APRN.CNP [address] [place] [address] [address] Referral ID Status Reason Start Date Expiration Date Visits Requested Visits Authorized [id number] Pending Review Auto-Generat ed Referral 01/28/2022 01/28/2023 1 1 [facility] for referral (narrative)* Outpatient Procedure (Routine) - Authorized Specialty Diagnoses / Procedures Referred By Contac t Referred To Contact [facility] [place] Diagnoses PVD (peripheral vascular disease) (HCC) Procedures PVR LEG COREY VAS LAB PVR LEG COREY VAS LAB NON-INVASIVE PHYSIOLOGIC STUDY EXTREMITY [address] [place] [address] [place] [address] [facility] [address] [address] Referral ID Status Reason Start Date Expiration Date Visits Requested Visits Authorized [id number] Authorized Auto-Generat ed Referral 01/31/2022 01/31/2023 1 1 [facility] for referral (narrative)* Outpatient Procedure (Routine) - Authorized Specialty Diagnoses / Procedures Referred By Contac t Referred To Contact [facility] [place] Diagnoses Peripheral arterial disease (HCC) PVD (peripheral vascular disease) (HCC) Procedures PVR LEG COREY VAS LAB NON-INVASIVE PHYSIOLOGIC STUDY EXTREMITY 3 [place] [address] [place] [address] [facility] [address] [address] [place] [address] Referral ID Status Reason Start Date Expiration Date Visits Requested Visits Authorized [id number] Authorized Auto-Generat ed Referral 12/26/2022 12/26/2023 1 1 [facility] for referral (narrative)* Outpatient Procedure (Routine) - Authorized Specialty Diagnoses / Procedures Referred By Contac t Referred To Contact [facility] Diagnoses Peripheral arterial disease (HCC) Procedures PVR LEG COREY VAS LAB NON-INVASIVE PHYSIOLOGIC STUDY EXTREMITY 3 [place] [address] [place] [address] [id number] [place] [address] Referral ID Status Reason Start Date Expiration Date Visits Requested Visits Authorized [id number] Authorized Auto-Generat ed Referral 01/02/2024 01/01/2025 1 1 [facility] for referral (narrative)No reason for referral information availableWOhio Valley Surgical Hospital Work Phone: Summary Purpose Family History No Family History Records Found Relationship Condition Age at Onset Recorded Date/T [...] Unknown father Cardiac disease Unknown Advance Directives No Advanced Directives Records FoundDocuments on File Type Date Recorded Patient Research Nurse Practitioner Expl anation Advance Directive(s) 10/24/2019 3:38 PM [...] Documents on File Type Date Recorded Patient Research Nurse Practitioner Expl anation Advance Directive(s) 08/29/2021 6:53 PM Advance Directive(s) 08/22/2021 7:53 PM Advance Directive(s) 04/10/2020 4:06 PM Advance Directive(s) 12/17/2019 10:49 AM Advance Directive(s) 10/24/2019 3:38 PM Advance Directive(s) 10/17/2019 9:43 AM Advance Directive(s) 10/08/2019 7:18 AM Advance Directive(s) 09/04/2019 1:38 PM Advance Directive(s) 02/07/2016 12:11 AM Advance Directive Response Recorded Date/ Time Name of Medical Power of Orchestra Teacher eloina stephens e- ex August 12, 2021 1:39am Name of Medical Power of Orchestra Teacher Joseph Burrell August 18, 2021 11:56pm Advance Directives Yes March 22, 2016 4:03pm Living Will No September 17, 2021 5:48pm Power of Orchestra Teacher Yes September 17 5:48pm Advance Directive Response Recorded Date/ Time Name of Medical Power of Orchestra Teacher eloina angelo e- ex August 12, 2021 1:39am Name of Medical Power of Orchestra Teacher Joseph Burrell August 18, 2021 11:56pm Name of Medical Power of Orchestra Teacher joseph burrell September 17, 2021 5:48pm Advance Directives Yes March 22, 2016 4:03pm Living Will No October 08, 2021 2:20pm Power of Orchestra Teacher No October 08 2:20pm Documents on File Type Date Recorded Patient Research Nurse Practitioner Expl anation Advance Directive(s) 08/29/2021 6:53 PM [...] Date/ Time Name of Medical Power of Orchestra Teacher eloina angelo e- ex August 12, 2021 1:39am Name of Medical Power of Orchestra Teacher Joseph Burrell August 18, 2021 11:56pm Name of Medical Power of Orchestra Teacher joseph burrell September 17, 2021 5:48pm Advance Directives Yes March 22, 2016 4:03pm Living Will Yes November 25, 2021 5 :33pm Power of Orchestra Teacher Yes November 25, 2021 5:33pm Advance Directive Response Recorded Date/ Time Name of Medical Power of Orchestra Teacher eloina angelo e- ex August 12, 2021 1:39am Name of Medical Power of Orchestra Teacher Joseph Burrell August 18, 2021 11:56pm Name of Medical Power of Orchestra Teacher joseph burrell September 17, 2021 5:48pm Advance Directives Yes March 22, 2016 4:03pm Living Will Yes November 25, 2021 1 1:06pm Power of Orchestra Teacher No November 25, 2021 11:06pm Advance Directive Response Recorded Date/ Time Name of Medical Power of Orchestra Teacher Joseph Burrell August 18, 2021 11:56pm Name of Medical Power of Orchestra Teacher joseph burrell September 17, 2021 5:48pm Name of Medical Power of Orchestra Teacher MICHELLE RICHMOND November 25, 2021 5:33pm Advance Directives Yes March 22, 2016 4:03pm Living Will Yes November 25, 2021 1 1:06pm Power of Orchestra Teacher No November 25, 2021 11:06pm Advance Directive Response Recorded Date/ Time Name of Medical Power of Orchestra Teacher joseph burrell September 17, 2021 5:48pm Name of Medical Power of Orchestra Teacher MICHELLE RICHMOND November 25, 2021 5:33pm Advance Directives Yes March 22, 2016 4:03pm Living Will Yes November 25, 2021 1 1:06pm Power of Orchestra Teacher No November 25, 2021 11:06pm Advance Directive Response Recorded Date/ Time Name of Medical Power of Orchestra Teacher MICHELLE RICHMOND November 25, 2021 5:33pm Advance Directives Yes March 22, 2016 4:03pm Living Will Yes November 25, 2021 1 1:06pm Power of Orchestra Teacher No November 25, 2021 11:06pm Advance Directive Response Recorded Date/ Time Name of Medical Power of Orchestra Teacher MICHELLE RICHMOND November 25, 2021 5:33pm Name of Medical Power of Orchestra Teacher recalled January 28, 2022 3:14pm Advance Directives Yes March 22, 2016 4:03pm Living Will Yes January 28 3:14pm Power of Orchestra Teacher Yes January 28, 2 022 3:14pm Documents on File Type Date Recorded Patient Research Nurse Practitioner Expl anation Advance Directive(s) 10/24/2019 3:38 PM Advance Directive Response Recorded Date/ Time Name of Medical Power of Orchestra Teacher MICHELLE RICHMOND November 25, 2021 5:33pm Name of Medical Power of Orchestra Teacher recalled January 28, 2022 3:14pm Advance Directives Yes March 22, 2016 4:03pm Living Will Yes March 02, 2022 3:17pm Power of Orchestra Teacher No February 3:17pm Advance Directive Response Recorded Date/ Time Name of Medical Power of Orchestra Teacher MICHELLEADRIANA REEDON November 25, 2021 5:33pm Name of Medical Power of Orchestra Teacher recalled January 28, 2022 3:14pm Advance Directives Yes March 22, 2016 4:03pm Living Will No March 07, 2022 5:26pm Power of Orchestra Teacher No February 5:26pm Advance Directive Response Recorded Date/ Time Name of Medical Power of Orchestra Teacher MICHELLE RICHMOND November 25, 2021 5:33pm Name of Medical Power of Orchestra Teacher recalled January 28, 2022 3:14pm Advance Directives Yes March 22, 2016 4:03pm Living Will No March 08, 2022 8:17pm Power of Orchestra Teacher No February 8:17pm Advance Directive Response Recorded Date/ Time Advance Directives Yes March 22, 2016 3:03pm Living Will No March 08, 2022 7:17pm Power of Orchestra Teacher No February 7:17pm Advance Directive Response Recorded Date/ Time Advance Directives Yes March 22, 2016 4:03pm Living Will No October 21, 2022 6: 58pm Power of Orchestra Teacher No October 21, 2022 6:58pm Latest Code [...] Date/ Time Name of Medical Power of Orchestra Teacher JOSEPH Euceda December 31, 2022 3:19pm Advance Directives Yes March 22, 2016 4:03pm Living Will Yes December 31, 2022 3:19pm Power of Orchestra Teacher Yes December 31 3:19pm Advance Directive Response Recorded Date/ Time Name of Medical Power of Orchestra Teacher JOSEPH Euceda December 31, 2022 3:19pm Name of Medical Power of Orchestra Teacher Joseph February 17, 2023 11:06pm Advance Directives Yes March 22, 2016 4:03pm Living Will Yes February 17, 023 11:06pm Power of Orchestra Teacher Yes February 17, 2023 11:06pm Advance Directive Response Recorded Date/ Time Name of Medical Power of Orchestra Teacher Joseph Burrell March 29, 2023 7:22pm Advance Directives Yes March 22, 2016 4:03pm Living Will No March 30 3:32pm Power of Orchestra Teacher No March 30, 2023 3:32pm Name of Medical Power of Orchestra Teacher JOSEPH Euceda December 31, 2022 3:19pm Name of Medical Power of Orchestra Teacher Joseph February 17, 2023 11:06pm Advance Directive Response Recorded Date/ Time Name of Medical Power of Orchestra Teacher Joseph Burrell March 29, 2023 7:22pm Advance Directives Yes March 22, 2016 4:03pm Living Will No March 30 9:04pm Power of Orchestra Teacher No March 30, 2023 9:04pm Name of Medical Power of Orchestra Teacher JOSEPH Euceda December 31, 2022 3:19pm Name of Medical Power of Orchestra Teacher Joseph February 17, 2023 11:06pm Advance Directive Response Recorded Date/ Time Name of Medical Power of Orchestra Teacher Joseph Burrell March 29, 2023 6:22pm Advance Directives Yes March 22, 2016 3:03pm Living Will No March 30 8:04pm Power of Orchestra Teacher No March 30, 2023 8:04pm Advance Directive Response Recorded Date/ Time Name of Medical Power of Orchestra Teacher Joseph Burrell March 29, 2023 6:22pm Name of Medical Power of Orchestra Teacher Joseph Burrell July 24, 2023 5:27pm Advance Directives Yes March 22, 2016 3:03pm Living Will Yes July 24 5:27pm Power of Orchestra Teacher Yes July 24, 2023 5:27pm Advance Directive Response Recorded Date/ Time Name of Medical Power of Orchestra Teacher Joseph Burrell July 24, 2023 9:55pm Advance Directives Yes March 22, 2016 3:03pm Living Will No July 30, 024 8:34pm Power of Orchestra Teacher No July 30, 2023 8:34pm Advance Directive Response Recorded Date/ Time Name of Medical Power of Orchestra Teacher Joseph Burrell July 24, 2023 9:55pm Name of Medical Power of Orchestra Teacher Nahed Ramsey July 31, 2023 12:57am Advance Directives Yes March 22, 2016 3:03pm Living Will No July 31 12:57am Power of Orchestra Teacher Yes July 31, 2023 12:57am Date Activated Date Inactivated Comments 08/23/2021 7:55 AM 09/13/2021 7:43 PM Question Answer Comments Full Code Order Discussed With: Patient Date Activated Date Inactivated Comments 10/01/2020 11:51 PM 08/21/2021 11:26 AM Advance Directive Response Recorded Date/ Time Name of Medical Power of Orchestra Teacher Joseph Burrell March 29, 2023 6:22pm Advance Directives Yes March 22, 2016 3:03pm Living Will No March 30 8:04pm Power of Orchestra Teacher No March 30, 2023 8:04pm Name of Medical Power of Orchestra Teacher Joseph February 17, 2023 10:06pm Advance Directive Response Recorded Date/ Time Living Will No August 25, 2024 4:43pm Power of Orchestra Teacher No August 25 4:43pm Advance Directives Yes March 22, 2016 4:03pm Advance Directive Response Recorded Date/ Time Living Will No August 25, 2024 7:21pm Power of Orchestra Teacher No August 25 7:21pm Advance Directives Yes March 22, 2016 4:03pm Advance Directive Response Recorded Date/ Time Living Will No August 25, 2024 7:21pm Do you have a Healthcare Power of Orchestra Teacher? No August 25, 2024 7:21pm Advance Directives Yes March 22, 2016 4:03pm Advance Directive Response Recorded Date/ Time Do you have a Healthcare Power of Orchestra Teacher? No December 13, 2024 5:49pm Living Will No August 25, 2024 7:21pm Do you have a Healthcare Power of Orchestra Teacher? No August 25, 2024 7:21pm Advance Directives Yes March 22, 2016 4:03pm Advance Directive Response Recorded Date/ Time Do you have a Healthcare Power of Orchestra Teacher? Yes December 13, 2024 9:26pm Name of Medical Power of Orchestra Teacher Joseph Burrell December 13, 2024 9:26pm Living Will No August 25, 2024 7:21pm Do you have a Healthcare Power of Orchestra Teacher? No August 25, 2024 7:21pm Advance Directives Yes March 22, 2016 4:03pm Advance Directive Response Recorded Date/ Time Do you have a Healthcare Power of Orchestra Teacher? Yes December 13, 2024 9:26pm Name of Medical Power of Orchestra Teacher Joseph Burrell December 13, 2024 9:26pm Do you have a Healthcare Power of Orchestra Teacher? Yes December 17, 2024 4:23pm Living Will No August 25, 2024 7:21pm Do you have a Healthcare Power of Orchestra Teacher? No August 25, 2024 7:21pm Advance Directives Yes March 22, 2016 4:03pm Hospital Course Note HNO ID: [id number] Author: Luis Girard Service: Vascular Surgery Author [...] Admitted for a planned redo of left ELECTRIC ORGAN ASSEMBLER AND CHECKER endarterectomy versus bypass, possible fem-fem and or fem-pop bypass, possible stent placement for reoccurrent left ELECTRIC ORGAN ASSEMBLER AND CHECKER disease, thrombosis of the left iliac stents and rest pain. Operations during Hospitalization: 10/08/2019-Left common femoral endarterectomy with bovine patch, redo.Thrombectomy of the occluded Left RADHA and EIA.Left common and external iliac stents (Cast x 2), (Gene (more content not included)... Note HNO ID: [id number] Author: Bing Oden ([place]) Service: Vascular Surgery Author Type: Physician Delivery Driver Assistant Type: Discharge Summary Filed: 10/25/2019 4:58 PM [...] status post revascularization of left leg. 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 Reason for Hospitalization: pleasant 69-year-old gentleman, who has recently undergone com (more content not included)... Note HNO ID: [id number] Author: Luis Girard Service: Vascular Surgery Author Type: Nurse Practitioner Type: Discharge Summary Filed: 12/17/2019 5:52 PM Note Text: Attestation signed by Rob Stevens at 12/18/2019 8:07 AM [facility] STAFF PHYSICIAN NOTE OF PERSONAL INVOLVEMENT [...] 1700 12/17/2019 ADMISSION DATE: 12/17/2019 DISCHARGE DISPOSITION: Residential Facility Discharge Physical Exam: VITAL SIGNS: BP 154/ (more content not included)... Note HNO ID: [id number] Author: Nelson Schuster (Aa) Service: ? Author Type: Drum Sander Type: Anesthesia Procedure Notes Filed: 10/08/2019 8:38 [...] Blade size: #4 ETT size (mm): 7.5 Alryn (more content not included)... Note HNO ID: [id number] Author: Nelson Schuster (Aa) Service: ? Author Type: Drum Sander Type: Anesthesia Procedure Notes Filed: 10/08/2019 8:38 [...] October 08, 2019 TIME: 8:36 AM CSN: [id number] Note HNO ID: [id number] Author: Nelson Schuster (Aa) Service: ? Author Type: Drum Sander Type: Anesthesia Procedure Notes Filed: 10/08/2019 8:39 [...] (more content not included)... Note HNO ID: [id number] Author: ANA PAULA Sanchez (Aa) Service: ? Author Type: Drum Sander Type: Anesthesia Procedure Notes Filed: 10/08/2019 9:16 [...] October 08, 2019 TIME: 9:15 AM CSN: [id number] Note HNO ID: [id number] Author: Bing lucas (Binu Brown Service: Vascular Surgery Author Type: Resident Type: Brief Op Note Filed: 10/08/2019 4:12 PM Note Text: BRIEF OPERATIVE / PROCEDURE NOTE LOG ID: [id number] SURGERY/PROCEDURE DATE: 10/08/2019 INCISION/PROCEDURE START TIME: 8:53 AM INCISION CLOSE/PROCEDURE END TIME: 4:06 PM SURGEON(S)/PROCEDURALIST(S) AND SOIL SPECIALIST(S): Surgeon(s) and Role: * Ryan May MD - Primary * Elly (Azalea) Stephanie - Resident - Assisting No Additional Staff SURGERY/PROCEDURE(S): Left common ELECTRIC ORGAN ASSEMBLER AND CHECKER endarterectomy with bovine path Left profundoplasty Left [...] (more content not included)... Note HNO ID: [id number] Author: Destiny Sequeira Service: ? Author Type: [...] (more content not included)... Note HNO ID: [id number] Author: Destiny Sequeira Service: ? Author Type: [...] October 10, 2019 TIME: 9:26 AM CSN: [id number] Note HNO ID: [id number] Author: Huong Varela) Carlos Service: ? Author Type: Nurse Corporate Treasurer Type: Anesthesia Procedure Notes Filed: 10/10/2019 9:36 AM Note Text: ANESTHESIOLOGY PROCEDURE NOTE Airway General Information Procedure Start Time/Medication Administration: 10/10/2019 9:11 AM Patient location during procedure: OR Staffing Anesthesiologist: Joey Sequeira MANAGER PERFORMANCE IMPROVEMENT: Gini Gonzalez Performed by: EDWIN Indications and [...] (more content not included)... Note HNO ID: [id number] Author: Bing lucas (Azalea) Stephanie Service: Vascular Surgery Author Type: Resident Type: Brief Op Note Filed: 10/10/2019 2:08 PM Note Text: BRIEF OPERATIVE / PROCEDURE NOTE LOG ID: [id number] Surgery/Procedure Date: 10/10/2019 Incision/Procedure Start Time: 9:52 AM Incision Close/Procedure End Time: 1:49 PM Surgeon(s)/Proceduralist(s) and Delivery Driver Assistant(s): Surgeon(s) and Role: * Ryan May MD - Primary * Elly (Res) Stephanie - Resident - Assisting No Additional Staff Procedure(s): Washout of left groin Left iliac, common femoral and profunda thrombectomy Left ilio-femoral ringed PTFE interposition graft (end-to-side) L iliofemoral stent extraction Multiple angiograms Anesthesia: General ASA Class: Findings: 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 information to criminally investigate or prosecute any alcohol or drug abuse patient.[facility] CenterIn the event this information is protected by the Federal Confidentiality of Alcohol and Drug Abuse Patient Records regulations: The Federal rules restrict any use of the information to criminally investigate or prosecute any alcohol or drug abuse patient.[facility] CenterIn the event this information is protected by the Federal Confidentiality of Alcohol and Drug Abuse Patient Records regulations: The Federal rules restrict any use of the information to criminally investigate or prosecute any alcohol or drug abuse patient.[facility] CenterIn the event this information is protected by the Federal Confidentiality of Alcohol and Drug Abuse Patient Records regulations: The Federal rules restrict any use of the information to criminally investigate or prosecute any alcohol or drug abuse patient.[facility] CenterIn the event this information is protected by the Federal Confidentiality of Alcohol and Drug Abuse Patient Records regulations: The Federal rules restrict any use of the information to criminally investigate or prosecute any alcohol or drug abuse patient.[facility] CenterIn the event this information is protected by the Federal Confidentiality of Alcohol and Drug Abuse Patient Records regulations: The Federal rules restrict any use of the information to criminally investigate or prosecute any alcohol or drug abuse patient.[facility] CenterIn the event this information is protected by the Federal Confidentiality of Alcohol and Drug Abuse Patient Records regulations: The Federal rules restrict any use of the information to criminally investigate or prosecute any alcohol or drug abuse patient.[facility] CenterIn the event this information is protected by the Federal Confidentiality of Alcohol and Drug Abuse Patient Records regulations: The Federal rules restrict any use of the information to criminally investigate or prosecute any alcohol or drug abuse patient.[facility] CenterIn the event this information is protected by the Federal Confidentiality of Alcohol and Drug Abuse Patient Records regulations: The Federal rules restrict any use of the information to criminally investigate or prosecute any alcohol or drug abuse patient.[facility] CenterIn the event this information is protected by the Federal Confidentiality of Alcohol and Drug Abuse Patient Records regulations: The Federal rules restrict any use of the information to criminally investigate or prosecute any alcohol or drug abuse patient.[facility] CenterIn the event this information is protected by the Federal Confidentiality of Alcohol and Drug Abuse Patient Records regulations: The Federal rules restrict any use of the information to criminally investigate or prosecute any alcohol or drug abuse patient.[facility] CenterIn the event this information is protected by the Federal Confidentiality of Alcohol and Drug Abuse Patient Records regulations: The Federal rules restrict any use of the information to criminally investigate or prosecute any alcohol or drug abuse patient.[facility] CenterIn the event this information is protected by the Federal Confidentiality of Alcohol and Drug Abuse Patient Records regulations: The Federal rules restrict any use of the information to criminally investigate or prosecute any alcohol or drug abuse patient.[facility] CenterIn the event this information is protected by the Federal Confidentiality of Alcohol and Drug Abuse Patient Records regulations: The Federal rules restrict any use of the information to criminally investigate or prosecute any alcohol or drug abuse patient.[facility] CenterIn the event this information is protected by the Federal Confidentiality of Alcohol and Drug Abuse Patient Records regulations: The Federal rules restrict any use of the information to criminally investigate or prosecute any alcohol or drug abuse patient.[facility] CenterIn the event this information is protected by the Federal Confidentiality of Alcohol and Drug Abuse Patient Records regulations: The Federal rules restrict any use of the information to criminally investigate or prosecute any alcohol or drug abuse patient.[facility] CenterIn the event this information is protected by the Federal Confidentiality of Alcohol and Drug Abuse Patient Records regulations: The Federal rules restrict any use of the information to criminally investigate or prosecute any alcohol or drug abuse patient.[facility] CenterIn the event this information is protected by the Federal Confidentiality of Alcohol and Drug Abuse Patient Records regulations: The Federal rules restrict any use of the information to criminally investigate or prosecute any alcohol or drug abuse patient.[facility] CenterIn the event this information is protected by the Federal Confidentiality of Alcohol and Drug Abuse Patient Records regulations: The Federal rules restrict any use of the information to criminally investigate or prosecute any alcohol or drug abuse patient.[facility] CenterIn the event this information is protected by the Federal Confidentiality of Alcohol and Drug Abuse Patient Records regulations: The Federal rules restrict any use of the information to criminally investigate or prosecute any alcohol or drug abuse patient.[facility] CenterIn the event this information is protected by the Federal Confidentiality of Alcohol and Drug Abuse Patient Records regulations: The Federal rules restrict any use of the information to criminally investigate or prosecute any alcohol or drug abuse patient.[facility] CenterIn the event this information is protected by the Federal Confidentiality of Alcohol and Drug Abuse Patient Records regulations: The Federal rules restrict any use of the information to criminally investigate or prosecute any alcohol or drug abuse patient.[facility] CenterIn the event this information is protected by the Federal Confidentiality of Alcohol and Drug Abuse Patient Records regulations: The Federal rules restrict any use of the information to criminally investigate or prosecute any alcohol or drug abuse patient.[facility] CenterIn the event this information is protected by the Federal Confidentiality of Alcohol and Drug Abuse Patient Records regulations: The Federal rules restrict any use of the information to criminally investigate or prosecute any alcohol or drug abuse patient.[facility] CenterIn the event this information is protected by the Federal Confidentiality of Alcohol and Drug Abuse Patient Records regulations: The Federal rules restrict any use of the information to criminally investigate or prosecute any alcohol or drug abuse patient.[facility] CenterIn the event this information is protected by the Federal Confidentiality of Alcohol and Drug Abuse Patient Records regulations: The Federal rules restrict any use of the information to criminally investigate or prosecute any alcohol or drug abuse patient.[facility] CenterIn the event this information is protected by the Federal Confidentiality of Alcohol and Drug Abuse Patient Records regulations: The Federal rules restrict any use of the information to criminally investigate or prosecute any alcohol or drug abuse patient.[facility] CenterIn the event this information is protected by the Federal Confidentiality of Alcohol and Drug Abuse Patient Records regulations: The Federal rules restrict any use of the information to criminally investigate or prosecute any alcohol or drug abuse patient.[facility] CenterIn the event this information is protected by the Federal Confidentiality of Alcohol and Drug Abuse Patient Records regulations: The Federal rules restrict any use of the information to criminally investigate or prosecute any alcohol or drug abuse patient.[facility] CenterIn the event this information is protected by the Federal Confidentiality of Alcohol and Drug Abuse Patient Records regulations: The Federal rules restrict any use of the information to criminally investigate or prosecute any alcohol or drug abuse patient.[facility] CenterIn the event this information is protected by the Federal Confidentiality of Alcohol and Drug Abuse Patient Records regulations: The Federal rules restrict any use of the information to criminally investigate or prosecute any alcohol or drug abuse patient.[facility] CenterIn the event this information is protected by the Federal Confidentiality of Alcohol and Drug Abuse Patient Records regulations: The Federal rules restrict any use of the information to criminally investigate or prosecute any alcohol or drug abuse patient.[facility] CenterIn the event this information is protected by the Federal Confidentiality of Alcohol and Drug Abuse Patient Records regulations: The Federal rules restrict any use of the information to criminally investigate or prosecute any alcohol or drug abuse patient.[facility] CenterIn the event this information is protected by the Federal Confidentiality of Alcohol and Drug Abuse Patient Records regulations: The Federal rules restrict any use of the information to criminally investigate or prosecute any alcohol or drug abuse patient.[facility] CenterIn the event this information is protected by the Federal Confidentiality of Alcohol and Drug Abuse Patient Records regulations: The Federal rules restrict any use of the information to criminally investigate or prosecute any alcohol or drug abuse patient.[facility] CenterIn the event this information is protected by the Federal Confidentiality of Alcohol and Drug Abuse Patient Records regulations: The Federal rules restrict any use of the information to criminally investigate or prosecute any alcohol or drug abuse patient.[facility] CenterIn the event this information is protected by the Federal Confidentiality of Alcohol and Drug Abuse Patient Records regulations: The Federal rules restrict any use of the information to criminally investigate or prosecute any alcohol or drug abuse patient.[facility] CenterIn the event this information is protected by the Federal Confidentiality of Alcohol and Drug Abuse Patient Records regulations: The Federal rules restrict any use of the information to criminally investigate or prosecute any alcohol or drug abuse patient.[facility] CenterIn the event this information is protected by the Federal Confidentiality of Alcohol and Drug Abuse Patient Records regulations: The Federal rules restrict any use of the information to criminally investigate or prosecute any alcohol or drug abuse patient.[facility] CenterIn the event this information is protected by the Federal Confidentiality of Alcohol and Drug Abuse Patient Records regulations: The Federal rules restrict any use of the information to criminally investigate or prosecute any alcohol or drug abuse patient.[facility] CenterIn the event this information is protected by the Federal Confidentiality of Alcohol and Drug Abuse Patient Records regulations: The Federal rules restrict any use of the information to criminally investigate or prosecute any alcohol or drug abuse patient.[facility] CenterIn the event this information is protected by the Federal Confidentiality of Alcohol and Drug Abuse Patient Records regulations: The Federal rules restrict any use of the information to criminally investigate or prosecute any alcohol or drug abuse patient.[facility] CenterIn the event this information is protected by the Federal Confidentiality of Alcohol and Drug Abuse Patient Records regulations: The Federal rules restrict any use of the information to criminally investigate or prosecute any alcohol or drug abuse patient.[facility] CenterIn the event this information is protected by the Federal Confidentiality of Alcohol and Drug Abuse Patient Records regulations: The Federal rules restrict any use of the information to criminally investigate or prosecute any alcohol or drug abuse patient.[facility] CenterIn the event this information is protected by the Federal Confidentiality of Alcohol and Drug Abuse Patient Records regulations: The Federal rules restrict any use of the information to criminally investigate or prosecute any alcohol or drug abuse patient.[facility] CenterIn the event this information is protected by the Federal Confidentiality of Alcohol and Drug Abuse Patient Records regulations: The Federal rules restrict any use of the information to criminally investigate or prosecute any alcohol or drug abuse patient.[facility] CenterIn the event this information is protected by the Federal Confidentiality of Alcohol and Drug Abuse Patient Records regulations: The Federal rules restrict any use of the information to criminally investigate or prosecute any alcohol or drug abuse patient.[facility] CenterIn the event this information is protected by the Federal Confidentiality of Alcohol and Drug Abuse Patient Records regulations: The Federal rules restrict any use of the information to criminally investigate or prosecute any alcohol or drug abuse patient.[facility] CenterIn the event this information is protected by the Federal Confidentiality of Alcohol and Drug Abuse Patient Records regulations: The Federal rules restrict any use of the information to criminally investigate or prosecute any alcohol or drug abuse patient.[facility] CenterIn the event this information is protected by the Federal Confidentiality of Alcohol and Drug Abuse Patient Records regulations: The Federal rules restrict any use of the information to criminally investigate or prosecute any alcohol or drug abuse patient.[facility] CenterIn the event this information is protected by the Federal Confidentiality of Alcohol and Drug Abuse Patient Records regulations: The Federal rules restrict any use of the information to criminally investigate or prosecute any alcohol or drug abuse patient.[facility] CenterIn the event this information is protected by the Federal Confidentiality of Alcohol and Drug Abuse Patient Records regulations: The Federal rules restrict any use of the information to criminally investigate or prosecute any alcohol or drug abuse patient.[facility] CenterIn the event this information is protected by the Federal Confidentiality of Alcohol and Drug Abuse Patient Records regulations: The Federal rules restrict any use of the information to criminally investigate or prosecute any alcohol or drug abuse patient.[facility] CenterIn the event this information is protected by the Federal Confidentiality of Alcohol and Drug Abuse Patient Records regulations: The Federal rules restrict any use of the information to criminally investigate or prosecute any alcohol or drug abuse patient.[facility] CenterIn the event this information is protected by the Federal Confidentiality of Alcohol and Drug Abuse Patient Records regulations: The Federal rules restrict any use of the information to criminally investigate or prosecute any alcohol or drug abuse patient.[facility] CenterIn the event this information is protected by the Federal Confidentiality of Alcohol and Drug Abuse Patient Records regulations: The Federal rules restrict any use of the information to criminally investigate or prosecute any alcohol or drug abuse patient.[facility] CenterIn the event this information is protected by the Federal Confidentiality of Alcohol and Drug Abuse Patient Records regulations: The Federal rules restrict any use of the information to criminally investigate or prosecute any alcohol or drug abuse patient.[facility] CenterIn the event this information is protected by the Federal Confidentiality of Alcohol and Drug Abuse Patient Records regulations: The Federal rules restrict any use of the information to criminally investigate or prosecute any alcohol or drug abuse patient.[facility] CenterIn the event this information is protected by the Federal Confidentiality of Alcohol and Drug Abuse Patient Records regulations: The Federal rules restrict any use of the information to criminally investigate or prosecute any alcohol or drug abuse patient.[facility] CenterIn the event this information is protected by the Federal Confidentiality of Alcohol and Drug Abuse Patient Records regulations: The Federal rules restrict any use of the information to criminally investigate or prosecute any alcohol or drug abuse patient.[facility] CenterIn the event this information is protected by the Federal Confidentiality of Alcohol and Drug Abuse Patient Records regulations: The Federal rules restrict any use of the information to criminally investigate or prosecute any alcohol or drug abuse patient.[facility] CenterIn the event this information is protected by the Federal Confidentiality of Alcohol and Drug Abuse Patient Records regulations: The Federal rules restrict any use of the information to criminally investigate or prosecute any alcohol or drug abuse patient.[facility] CenterIn the event this information is protected by the Federal Confidentiality of Alcohol and Drug Abuse Patient Records regulations: The Federal rules restrict any use of the information to criminally investigate or prosecute any alcohol or drug abuse patient.[facility] CenterIn the event this information is protected by the Federal Confidentiality of Alcohol and Drug Abuse Patient Records regulations: The Federal rules restrict any use of the information to criminally investigate or prosecute any alcohol or drug abuse patient.[facility] CenterIn the event this information is protected by the Federal Confidentiality of Alcohol and Drug Abuse Patient Records regulations: The Federal rules restrict any use of the information to criminally investigate or prosecute any alcohol or drug abuse patient.[facility] CenterIn the event this information is protected by the Federal Confidentiality of Alcohol and Drug Abuse Patient Records regulations: The Federal rules restrict any use of the information to criminally investigate or prosecute any alcohol or drug abuse patient.[facility] CenterIn the event this information is protected by the Federal Confidentiality of Alcohol and Drug Abuse Patient Records regulations: The Federal rules restrict any use of the information to criminally investigate or prosecute any alcohol or drug abuse patient.[facility] CenterIn the event this information is protected by the Federal Confidentiality of Alcohol and Drug Abuse Patient Records regulations: The Federal rules restrict any use of the information to criminally investigate or prosecute any alcohol or drug abuse patient.[facility] CenterIn the event this information is protected by the Federal Confidentiality of Alcohol and Drug Abuse Patient Records regulations: The Federal rules restrict any use of the information to criminally investigate or prosecute any alcohol or drug abuse patient.[facility] CenterIn the event this information is protected by the Federal Confidentiality of Alcohol and Drug Abuse Patient Records regulations: The Federal rules restrict any use of the information to criminally investigate or prosecute any alcohol or drug abuse patient.[facility] CenterIn the event this information is protected by the Federal Confidentiality of Alcohol and Drug Abuse Patient Records regulations: The Federal rules restrict any use of the information to criminally investigate or prosecute any alcohol or drug abuse patient.[facility] CenterIn the event this information is protected by the Federal Confidentiality of Alcohol and Drug Abuse Patient Records regulations: The Federal rules restrict any use of the information to criminally investigate or prosecute any alcohol or drug abuse patient.[facility] CenterIn the event this information is protected by the Federal Confidentiality of Alcohol and Drug Abuse Patient Records regulations: The Federal rules restrict any use of the information to criminally investigate or prosecute any alcohol or drug abuse patient.[facility] CenterIn the event this information is protected by the Federal Confidentiality of Alcohol and Drug Abuse Patient Records regulations: The Federal rules restrict any use of the information to criminally investigate or prosecute any alcohol or drug abuse patient.[facility] CenterIn the event this information is protected by the Federal Confidentiality of Alcohol and Drug Abuse Patient Records regulations: The Federal rules restrict any use of the information to criminally investigate or prosecute any alcohol or drug abuse patient.[facility] CenterIn the event this information is protected by the Federal Confidentiality of Alcohol and Drug Abuse Patient Records regulations: The Federal rules restrict any use of the information to criminally investigate or prosecute any alcohol or drug abuse patient.[facility] CenterIn the event this information is protected by the Federal Confidentiality of Alcohol and Drug Abuse Patient Records regulations: The Federal rules restrict any use of the information to criminally investigate or prosecute any alcohol or drug abuse patient.[facility] CenterIn the event this information is protected by the Federal Confidentiality of Alcohol and Drug Abuse Patient Records regulations: The Federal rules restrict any use of the information to criminally investigate or prosecute any alcohol or drug abuse patient.[facility] CenterIn the event this information is protected by the Federal Confidentiality of Alcohol and Drug Abuse Patient Records regulations: The Federal rules restrict any use of the information to criminally investigate or prosecute any alcohol or drug abuse patient.[facility] CenterIn the event this information is protected by the Federal Confidentiality of Alcohol and Drug Abuse Patient Records regulations: The Federal rules restrict any use of the information to criminally investigate or prosecute any alcohol or drug abuse patient.[facility] CenterIn the event this information is protected by the Federal Confidentiality of Alcohol and Drug Abuse Patient Records regulations: The Federal rules restrict any use of the information to criminally investigate or prosecute any alcohol or drug abuse patient.[facility] CenterIn the event this information is protected by the Federal Confidentiality of Alcohol and Drug Abuse Patient Records regulations: The Federal rules restrict any use of the information to criminally investigate or prosecute any alcohol or drug abuse patient.[facility] CenterIn the event this information is protected by the Federal Confidentiality of Alcohol and Drug Abuse Patient Records regulations: The Federal rules restrict any use of the information to criminally investigate or prosecute any alcohol or drug abuse patient.[facility] CenterIn the event this information is protected by the Federal Confidentiality of Alcohol and Drug Abuse Patient Records regulations: The Federal rules restrict any use of the information to criminally investigate or prosecute any alcohol or drug abuse patient.[facility] CenterIn the event this information is protected by the Federal Confidentiality of Alcohol and Drug Abuse Patient Records regulations: The Federal rules restrict any use of the information to criminally investigate or prosecute any alcohol or drug abuse patient.[facility] CenterIn the event this information is protected by the Federal Confidentiality of Alcohol and Drug Abuse Patient Records regulations: The Federal rules restrict any use of the information to criminally investigate or prosecute any alcohol or drug abuse patient.[facility] CenterIn the event this information is protected by the Federal Confidentiality of Alcohol and Drug Abuse Patient Records regulations: The Federal rules restrict any use of the information to criminally investigate or prosecute any alcohol or drug abuse patient.[facility] CenterIn the event this information is protected by the Federal Confidentiality of Alcohol and Drug Abuse Patient Records regulations: The Federal rules restrict any use of the information to criminally investigate or prosecute any alcohol or drug abuse patient.[facility] CenterIn the event this information is protected by the Federal Confidentiality of Alcohol and Drug Abuse Patient Records regulations: The Federal rules restrict any use of the information to criminally investigate or prosecute any alcohol or drug abuse patient.[facility] CenterIn the event this information is protected by the Federal Confidentiality of Alcohol and Drug Abuse Patient Records regulations: The Federal rules restrict any use of the information to criminally investigate or prosecute any alcohol or drug abuse patient.[facility] CenterIn the event this information is protected by the Federal Confidentiality of Alcohol and Drug Abuse Patient Records regulations: The Federal rules restrict any use of the information to criminally investigate or prosecute any alcohol or drug abuse patient.[facility] CenterIn the event this information is protected by the Federal Confidentiality of Alcohol and Drug Abuse Patient Records regulations: The Federal rules restrict any use of the information to criminally investigate or prosecute any alcohol or drug abuse patient.[facility] CenterIn the event this information is protected by the Federal Confidentiality of Alcohol and Drug Abuse Patient Records regulations: The Federal rules restrict any use of the information to criminally investigate or prosecute any alcohol or drug abuse patient.[facility] CenterIn the event this information is protected by the Federal Confidentiality of Alcohol and Drug Abuse Patient Records regulations: The Federal rules restrict any use of the information to criminally investigate or prosecute any alcohol or drug abuse patient.[facility] CenterIn the event this information is protected by the Federal Confidentiality of Alcohol and Drug Abuse Patient Records regulations: The Federal rules restrict any use of the information to criminally investigate or prosecute any alcohol or drug abuse patient.[facility] CenterIn the event this information is protected by the Federal Confidentiality of Alcohol and Drug Abuse Patient Records regulations: The Federal rules restrict any use of the information to criminally investigate or prosecute any alcohol or drug abuse patient.[facility] CenterIn the event this information is protected by the Federal Confidentiality of Alcohol and Drug Abuse Patient Records regulations: The Federal rules restrict any use of the information to criminally investigate or prosecute any alcohol or drug abuse patient.[facility] Reason for Visit (unrecogniz ed section and content) Reason Onset Date Comments Transition Of Care 09/14/2021 TCM Initial M n [facility] Discharge 09/13/21 Reason Onset Date Comments Transition Of Care 09/14/2021 TCM Pharmacy- Hospital discharge 09/13/21 Reason Comments Recheck Hosp follow up Specialty Diagnoses / Procedures Referred By Contac t Referred To Contact Internal Medicine / INTERNAL MEDICINE Diagnoses hospital follow up Procedures 4C EST HOSP/ER MARIS Contreras Hans Andrea [address] [place] [address] Anjel Braga APRN.BOTTLER HELPER [address] [place] [address] Referral ID Status Reason Start Date Expiration Date V isits Requested Visits Authorized [id number] Closed Financial Clearance Required - OON Payor Patient Cleared INN/SMCP Payor Auth Obtained 09/15/2021 06/18/2022 1 1 Reason Comments Patient Update Reason Comments Medication Problem Plan of Care Reason Comments Nifedipine issue Reason Onset Date Comments Transition Of Care 09/16/2021 TCM f/u [facility] Hospital Discharge 09/13/21 Reason Comments FYI-OT plan of care Reason Comments Anticoagulation Reason Comments Orders Reason Comments medication issue Reason Comments [facility] verbal order needed Reason Comments Medication Problem Reason Comments Consult gallbladder, abdomen pain Specialty Diagnoses / Procedures Referred By Contac t Referred To Contact General Surgery / GENERAL SURGERY Diagnoses Acute cholecystitis Abdominal pain Acute cholecystitis, persistent abdominal pain Procedures OFFICE/OUTPATIENT NEW MODERATE MDM 45-59 MINUTES NEW DDI PATIENT Adelaida Farias MD [address] [place] [address] Kaye Ortega MD [address] [place] [address] Referral ID Status Reason Start Date Expiration Date V isits Requested Visits Authorized [id number] Closed Financial Clearance Required - OON Payor Patient Cleared INN/SMCP Payor Auth Obtained 09/08/2021 06/18/2022 1 1 Reason Comments Patient Question visit from 09/15/21 Reason Comments Patient Question Reason Comments Appointment CONSULT FOR CHOLECYS TECTOMY Reason Comments Appointment Reason Onset Date Comments Transition Of Care 09/21/2021 TCM f/u [facility] Discharge 09/13/21 Reason Comments Work excuse letter Reason Onset Date Comments Transition Of Care 09/29/2021 TCM f/u [facility] Hospital Discharge 09/13/21 Reason Onset Date Comments Refill Request 10/04/2021 Reason Comments Hypertension Specialty Diagnoses / Procedures Referred By Contac t Referred To Contact Internal Medicine / INTERNAL MEDICINE Diagnoses 09/13 ER Discharge [facility] Broken ribs follow up Procedures 4C EST HOSP/ER FU Daija Morton MD [address] [place] [address] Anjel Braga APRN.CNP [address] [place] [address] Referral ID Status Reason Start Date Expiration Date Visits Re quested Visits Authorized [id number] Closed 10/07/2021 06/18/2022 1 1 Reason Comments Coumadin update / [place] Reason Comments Patient Update Orders Reason Comments [...] VOL VNTJ Emilie Jauregui PA-C [address] [place] [address] [facility] [place] [address] [place] [id number] Referral ID Status Reason Start Date Expiration Date V isits Requested Visits Authorized [id number] Closed Auto-Generate d Referral 11/05/2021 06/18/2022 1 1 Specialty Diagnoses / Procedures Referred By Contac t Referred To Contact [facility] Diagnoses COPD with chronic bronchitis (HCC) Procedures OXIMETRY WITH AMBULATION NONINVASIVE EAR/PULSE OXIMETRY MULTIPLE Emilie Ko PA-C [address] [place] [address] [facility] [place] [address] [place] [address], [place] [address] Referral ID Status Reason Start Date Expiration Date V isits Requested Visits Authorized [id number] Closed Auto-Generate d Referral 11/05/2021 06/18/2022 1 1 Specialty Diagnoses / Procedures Referred By Contac t Referred To Contact Pulmonary and Critical Care Medicine / PULMONARY MEDICINE Diagnoses pre op clearance for gen surgery Procedures RI EST PULM GENERAL Daija Morton MD [address] [place] [address] Emilie Jauregui PA-C [address] [address] Referral ID Status Reason Start Date Expiration Date Visits Re quested Visits Authorized [id number] Closed 10/21/2021 06/18/2022 1 1 Reason Comments Results Reason Comments Cardiac Clearance surgery to have gall bladder removed Reason Comments UTI Specialty Diagnoses / Procedures Referred By Contac t Referred To Contact Internal Medicine / INTERNAL MEDICINE Diagnoses Essential hypertension UTI Procedures OFFICE/OUTPATIENT ESTABLISHED MOD MDM 30-39 MIN 4C EST Self Anjel Braga, SAP ABAP PROGRAMMER.BOTTLER HELPER [address] [place] [address] Referral ID Status Reason Start Date Expiration Date Visits Re quested Visits Authorized [id number] Closed 11/17/2021 06/18/2022 1 1 Reason Onset [...] Internal Medicine / INTERNAL MEDICINE Diagnoses Follow-up examination hospital f/u Procedures OFFICE/OUTPATIENT ESTABLISHED MOD MDM 30-39 MIN 4C EST HOSP/ER MD Roosevelt Marks Terri, SAP ABAP PROGRAMMER.CUT OUT MACHINE OPERATOR [address] [place] [address] Referral ID Status Reason Start Date Expiration Date Visits Re quested Visits Authorized [id number] Closed 01/14/2022 06/18/2022 1 1 Reason Comments Established Patient follow up anand pierce Reason Comments Recheck Follow up, Hosp foll ow up Specialty Diagnoses / Procedures Referred By Contac t Referred To Contact Internal Medicine / INTERNAL MEDICINE Diagnoses [facility] ER f/u. 01-25-22. Black stool. Procedures 4C EST HOSP/ER MD Omi Marks Joy, APRN.BOTTLER HELPER [address] [place] [address] Referral ID Status Reason Start Date Expiration Date Visits Re quested Visits Authorized [id number] Closed 01/28/2022 04/28/2022 1 1 Reason Comments Follow Up Specialty Diagnoses / Procedures Referred By Contac t Referred To Contact Vascular Surgery / VASCULAR SURGERY Diagnoses PVD 1 year f/u with PVR and arterial Duplex [place] [address] [place] [address] [place] [address] [place] [address] Referral ID Status Reason Start Date Expiration Date Visits Re quested Visits Authorized [id number] Closed 01/31/2022 06/18/2022 1 1 Reason Comments Results, Lab Reason Onset Date Comments Refill Request 02/22/2022 Reason Comments Erroneous encounter-disregard Reason Comments Fall Reason Comments [facility] orders needed today Reason Comments admit to [facility] Reason Comments Social Work Services Reason Comments Medication Question Reason Comments Syncope Reason Onset Date Comments Refill Request 08/25/2022 Patient Update 08/25/2022 Reason Comments residential follow-up Reason Onset Date Comments Refill Request [...] fix this, also fell twice while in [facility] Reason Comments Mental status change Reason Comments No Show Reason Onset Date Comments Refill Request 01/23/2024 Reason Onset Date Comments Refill Request 03/12/2024 Reason Comments UTI Foul odor, confusion Reason Comments Home Health Orders Reason Comments [facility] update Reason Comments Home Care Management Patient Update Reason Comments residential discharge [facility] [place] Reason Onset Date Comments Refill Request 12/13/2024 Reason Comments [facility] requesting records Reason Onset Date Comments Refill Request 12/16/2024 Care Teams (unrecognized sec tion and content) Tumblers Supervisor Relationship Specialty Start Date End Date Daija Morton MD [address] [place], [place] [id number] PCP - General Internal Medicine 03/21/17 Beatriz Correa CNP Referring 09/28/20 Daija Morton MD [address] [place], [place] [id number] Home Care Physician Internal Medicine 09/28/20 13, Pharmacist [address] [place] [address] Pharmacist Pharmacy 06/17/21 Lizette Ulloa, RN [address] [place] [address] Primary Care Field Insurance Sales Manager Internal Medicine 09/14/21 10/14/21 Tamika Almaguer PASSPORT Chief Investigator 09/26/17 Tumblers Supervisor Relationship Specialty Start Date End Date Daija Morton MD [address] [place], [place] [address]20141 PCP - General Internal Medicine 03/21/17 Beatriz Correa CNP Referring 09/28/20 Daija Morton MD [address] [place], [place] [id number] Home Care Physician Internal Medicine 09/28/20 13, Pharmacist [address] [place] [address] Pharmacist Pharmacy 06/17/21 Lizette Ulloa RN [address] [place] [address] Primary Care Field Insurance Sales Manager Internal Medicine 09/14/21 10/14/21 Tamika Almaguer PASSPORT Chief Investigator 09/26/17 Tumblers Supervisor Relationship Specialty Start Date End Date Daija Morton MD [address] [place] [address] PCP - General Internal Medicine 03/21/17 Beatriz Correa, BOTTLER HELPER Referring 09/28/20 Daija Morton MD [address] [place] [address] Home Care Physician Internal Medicine 09/28/20 13, Pharmacist [address]210 [place] [address] Pharmacist Pharmacy 06/17/21 Lizette Ulloa RN [address] [place] [address] Primary Care Field Insurance Sales Manager Internal Medicine 09/14/21 10/14/21 Tamika Almaguer PASSPORT Chief Investigator 09/26/17 Tumblers Supervisor Relationship Specialty Start Date End Date Daija Morton MD [address] [place] [address] PCP - General Internal Medicine 03/21/17 Beatriz Correa, BOTTLER HELPER Referring 09/28/20 Daija Morton MD [address] [place] [address] Home Care Physician Internal Medicine 09/28/20 13, Pharmacist 58360 [place] [address] Pharmacist Pharmacy 06/17/21 Lizette Ulloa RN [address] [place] [address] Primary Care Field Insurance Sales Manager Internal Medicine 09/14/21 10/14/21 Tamika Almaguer PASSPORT Chief Investigator 09/26/17 Tumblers Supervisor Relationship Specialty Start Date End Date Daija Morton MD [address] [facility] [place] [address] PCP - General Internal Medicine 03/21/17 Beatriz Correa, BOTTLER HELPER Referring 09/28/20 Daija Morton MD [address] [facility] [place] [address] Home Care Physician Internal Medicine 09/28/20 13, Pharmacist [phone] [facility] [place] [address] Pharmacist Pharmacy 06/17/21 Lizette Ulloa, RN [address] [place] [address] Primary Care Field Insurance Sales Manager Internal Medicine 09/14/21 10/14/21 Tamika Almaguer PASSPORT Chief Investigator 09/26/17 Tumblers Supervisor Relationship Specialty Start Date End Date Daija Morton MD [address] [facility] [place] [address] PCP - General Internal Medicine 03/21/17 Beatriz Correa, BOTTLER HELPER Referring 09/28/20 Daija Morton MD [address]40 [facility] [place] [address] Home Care Physician Internal Medicine 09/28/20 13, Pharmacist [phone] [facility] [place] [address] Pharmacist Pharmacy 06/17/21 Lizette Ulloa, RN [address] [place] [address] Primary Care Field Insurance Sales Manager Internal Medicine 09/14/21 10/14/21 Tamika Almaguer PASSPORT Chief Investigator 09/26/17 Tumblers Supervisor Relationship Specialty Start Date End Date Daija Morton MD [address] [facility] [place] [address] PCP - General Internal Medicine 03/21/17 Beatriz Correa CNP Referring 09/28/20 Daija Morton MD [address] [place] [address] Home Care Physician Internal Medicine 09/28/20 13, Pharmacist [address]33 [place] [address] Pharmacist Pharmacy 06/17/21 Lizette Ulloa, ОЛЕГ [address] [place] [address] Primary Care Field Insurance Sales Manager Internal Medicine 09/14/21 10/14/21 Tamika HARRELL Chief Investigator 09/26/17 Tumblers Supervisor Relationship Specialty Start Date End Date Daija Morton MD [address] [place] [address] PCP - General Internal Medicine 03/21/17 Beatriz Correa CNP Referring 09/28/20 Daija Morton MD [address] [place] [address] Home Care Physician Internal Medicine 09/28/20 13, Pharmacist 36665 [place] [address] Pharmacist Pharmacy 06/17/21 Lizette Ulloa, ОЛЕГ [address] [place] [address] Primary Care Field Insurance Sales Manager Internal Medicine 09/14/21 10/14/21 Kaye Ortega MD [address] [place] [address] General Surgery 09/21/21 Tamika HARRELL Chief Investigator 09/26/17 Tumblers Supervisor Relationship Specialty Start Date End Date Daija Morton MD [address] [place] [address] PCP - General Internal Medicine 03/21/17 Beatriz Correa CNP Referring 09/28/20 Daija Morton MD [address] [place] [address] Home Care Physician Internal Medicine 09/28/20 13, Pharmacist 31462 [place] [address] Pharmacist Pharmacy 06/17/21 Lizette Ulloa RN [address] [place] [address] Primary Care Field Insurance Sales Manager Internal Medicine 09/14/21 10/14/21 Kaye Ortega MD [address] [facility] [place] [phone] General Surgery 09/21/21 Tamika HARRELL Chief Investigator 09/26/17 Tumblers Supervisor Relationship Specialty Start Date End Date Daija Morton MD [address] [place] [address] PCP - General Internal Medicine 03/21/17 Beatriz Correa CNP Referring 09/28/20 Daija Morton MD [address] [place] [address] Home Care Physician Internal Medicine 09/28/20 13, Pharmacist 91024 [place] [address] Pharmacist Pharmacy 06/17/21 Lizette Ulloa RN [address] [place] [address] Primary Care Field Insurance Sales Manager Internal Medicine 09/14/21 10/14/21 Kaye Ortega MD [address] [place] [address] General Surgery 09/21/21 Tamika HARRELL Chief Investigator 09/26/17 Tumblers Supervisor Relationship Specialty Start Date End Date Daija Morton MD [address] [place] [address] PCP - General Internal Medicine 03/21/17 Beatriz Correa, LAMIN Referring 09/28/20 Daija Morton MD [address] [place] [address] Home Care Physician Internal Medicine 09/28/20 13, Pharmacist 93582 [place] [address] Pharmacist Pharmacy 06/17/21 Lizette Ulloa, ОЛЕГ [address] [place] [address] Primary Care Field Insurance Sales Manager Internal Medicine 09/14/21 10/14/21 Kaye Ortega MD [address] [place] [address] General Surgery 09/21/21 Tamika Almaguer [facility] Chief Investigator 09/26/17 Tumblers Supervisor Relationship Specialty Start Date End Date Daija Morton MD [address] [place] [address] PCP - General Internal Medicine 03/21/17 Beatriz Correa, LAMIN Referring 09/28/20 Daija Morton MD [address] [place] [address] Home Care Physician Internal Medicine 09/28/20 13, Pharmacist [address] [place] [address] Pharmacist Pharmacy 06/17/21 Lizette Ulloa, ОЛЕГ [address] [place] [address] Primary Care Field Insurance Sales Manager Internal Medicine 09/14/21 10/14/21 Kaye Ortega MD [address] [place] [address] General Surgery 09/21/21 Tamika Almaguer PASSPORT Chief Investigator 09/26/17 Tumblers Supervisor Relationship Specialty Start Date End Date Daija Morton MD [address] [place] [address] PCP - General Internal Medicine 03/21/17 Beatriz Correa, LAMIN Referring 09/28/20 Daija Morton MD [address] [place] [address] Home Care Physician Internal Medicine 09/28/20 13, Pharmacist [address]38 [place] [address] Pharmacist Pharmacy 06/17/21 Lizette Ulloa RN [address] [place] [address] Primary Care Field Insurance Sales Manager Internal Medicine 09/14/21 10/14/21 Kaye Ortega MD [address] [place] [address] General Surgery 09/21/21 Tamika Almaguer PASSPORT Chief Investigator 09/26/17 Tumblers Supervisor Relationship Specialty Start Date End Date Daija Morton MD [address] [place] [address] PCP - General Internal Medicine 03/21/17 Beatriz Correa, LAMIN Referring 09/28/20 Daija Morton MD [address] [place] [address] Home Care Physician Internal Medicine 09/28/20 Fco Franklin, ОЛЕГ [address] [place] [address] Core Setter 10/08/20 12/21/20 13, Pharmacist [address]30 [place] [address] Pharmacist Pharmacy 06/17/21 Lizette Ulloa, ОЛЕГ [address] [place] [address] Primary Care Field Insurance Sales Manager Internal Medicine 09/14/21 10/14/21 Kaye Ortega MD [address] [place] [address] General Surgery 09/21/21 Tamika Almaguer PASSANYI Chief Investigator 09/26/17 Tumblers Supervisor Relationship Specialty Start Date End Date Daija Morton MD [address] [place] [address] PCP - General Internal Medicine 03/21/17 Beatriz Correa, LAMIN Referring 09/28/20 Daija Morton MD [address] [place] [address] Home Care Physician Internal Medicine 09/28/20 13, Pharmacist [address] [place] [address] Pharmacist Pharmacy 06/17/21 Lizette Ulloa, RN [address] [place] [address] Primary Care Field Insurance Sales Manager Internal Medicine 09/14/21 10/14/21 Kaye Ortega MD [address] [place] [address] General Surgery 09/21/21 Tamikadestiny Almaguer SANGITAANYI Chief Investigator 09/26/17 Tumblers Supervisor Relationship Specialty Start Date End Date Daija Morton MD [address] [place] [address] PCP - General Internal Medicine 03/21/17 Beatriz Correa, BOTTLER HELPER Referring 09/28/20 10/12/21 Daija Morton MD [address] [place] [address] Home Care Physician Internal Medicine 09/28/20 10/12/21 13, Pharmacist [address] [place] [address] Pharmacist Pharmacy 06/17/21 Lizette Ulloa, ОЛЕГ [address] [place], [place] 5611595 Primary Care Field Insurance Sales Manager Internal Medicine 09/14/21 10/14/21 Kaye Ortega MD [address] [place] [address] General Surgery 09/21/21 Ye Coello MD [address] [place], [place] [id number] General Surgery 10/13/21 Emilie Jauregui PA-C [address] [place], [place] 51299691 Specialty Automatic Serging Machine Operator Pulmonary and Critical Care Medicine 10/13/21 Ryan May MD [address] [place] [address] Specialty Automatic Serging Machine Operator Vascular Surgery 10/13/21 Geronimo Medina, DO [address] [id number] Machinery Rigger Cardiology 10/13/21 Tamika Almaguer [facility] Chief Investigator 09/26/17 Tumblers Supervisor Relationship Specialty Start Date End Date Daija Morton MD [address] [place], [place] [id number] PCP - General Internal Medicine 03/21/17 13, Pharmacist 90168 [place] [address] Pharmacist Pharmacy 06/17/21 Lizette Ulloa, ОЛЕГ [address] [place], [place] [id number] Primary Care Field Insurance Sales Manager Internal Medicine 09/14/21 10/14/21 Kaye Ortega MD [address] [place] [address] General Surgery 09/21/21 Ye Coello MD [address] [place], [place] [id number] General Surgery 10/13/21 Emilie Jauregui PA-C [address] [place], [place] 608691 Specialty Automatic Serging Machine Operator Pulmonary and Critical Care Medicine 10/13/21 Ryan May MD [address] [place], [place] 2637295 Specialty Automatic Serging Machine Operator Vascular Surgery 10/13/21 Geronimo Medina DO [address] [id number] Machinery Rigger Cardiology 10/13/21 Tamika Canales Tripp [facility] Chief Investigator 09/26/17 Tumblers Supervisor Relationship Specialty Start Date End Date Daija Morton MD [address] [place], [place] 14550691 PCP - General Internal Medicine 03/21/17 Beatriz Correa, BOTTLER HELPER Referring 09/28/20 10/12/21 Daija Morton MD [address] [place], [place] 90071691 Home Care Physician Internal Medicine 09/28/20 10/12/21 13, Pharmacist 20525 [place], [place] 9194011 Pharmacist Pharmacy 06/17/21 Lizette Ulloa, ОЛЕГ [address] [place] [address] Primary Care Field Insurance Sales Manager Internal Medicine 09/14/21 10/14/21 Kaye Ortega MD [address] [place] [address] General Surgery 09/21/21 Ye Coello MD [address] [place], [place] [id number] General Surgery 10/13/21 Emilie Jauregui PA-C [address] [place], [place] 394991 Specialty Automatic Serging Machine Operator Pulmonary and Critical Care Medicine 10/13/21 Ryan May MD [address] [place], [place] 7350695 Specialty Automatic Serging Machine Operator Vascular Surgery 10/13/21 Geronimo Medina, [address] [phone] Machinery Rigger Cardiology 10/13/21 Tamika [facility]maguer [facility] Chief Investigator 09/26/17 Tumblers Supervisor Relationship Specialty Start Date End Date Daija Morton MD [address] [place] [address] PCP - General Internal Medicine 03/21/17 13, Pharmacist [address]10 [place] [address] Pharmacist Pharmacy 06/17/21 Lizette Ulloa, ОЛЕГ [address] [place] [address] Primary Care Field Insurance Sales Manager Internal Medicine 09/14/21 10/14/21 Kaye Ortega MD [address] [place] [address] General Surgery 09/21/21 Ye Coello MD [address] [place], [place] [id number] General Surgery 10/13/21 Emilie Jaurgeui PA-C [address] [place], [place] 80274691 Specialty Automatic Serging Machine Operator Pulmonary and Critical Care Medicine 10/13/21 Ryan May MD [address] [place] [address] Specialty Automatic Serging Machine Operator Vascular Surgery 10/13/21 Geronimo Medina DO [address] [address] Machinery Rigger Cardiology 10/13/21 Tamika HARRELL Chief Investigator 09/26/17 Tumblers Supervisor Relationship Specialty Start Date End Date Daija Morton MD [address] [place], [place] 007281 PCP - General Internal Medicine 03/21/17 13, Pharmacist [address] [place] [address] Pharmacist Pharmacy 06/17/21 Kaye Ortega MD [address] [place] [address] General Surgery 09/21/21 Ye Coello MD [address] [place], [place] [id number] General Surgery 10/13/21 Emilie Jauregui PA-C [address] [place] [address] Specialty Automatic Serging Machine Operator Pulmonary and Critical Care Medicine 10/13/21 Ryan May MD [address] [place] [address] Specialty Automatic Serging Machine Operator Vascular Surgery 10/13/21 Geronimo Medina DO [address] [address] Machinery Rigger Cardiology 10/13/21 Tamika HARRELL Chief Investigator 09/26/17 Tumblers Supervisor Relationship Specialty Start Date End Date Daija Morton MD [address] [place] [address] PCP - General Internal Medicine 03/21/17 13, Pharmacist [address]15 [place] [address] Pharmacist Pharmacy 06/17/21 Kaye Ortega MD [address] [place] [address] General Surgery 09/21/21 Ye Coello MD [address] [place], [place] [id number] General Surgery 10/13/21 Emilie Jauregui PA-C [address] [place] [address] Specialty Automatic Serging Machine Operator Pulmonary and Critical Care Medicine 10/13/21 Ryan May MD [address] [place], [place] 4147295 Specialty Automatic Serging Machine Operator Vascular Surgery 10/13/21 Geronimo Medina, DO [address] [phone] Machinery Rigger Cardiology 10/13/21 Tamika Almaguer [facility] Chief Investigator 09/26/17 Tumblers Supervisor Relationship Specialty Start Date End Date Daija Morton MD [address] [place] [address] PCP - General Internal Medicine 03/21/17 13, Pharmacist [address] [place] [address] Pharmacist Pharmacy 06/17/21 Kaye Ortega MD [address] [place] [address]34 General Surgery 09/21/21 Ye Coello MD [address] [place], [place] [id number] General Surgery 10/13/21 Emilie Jauregui PA-C [address] [place] [address] Specialty Automatic Serging Machine Operator Pulmonary and Critical Care Medicine 10/13/21 Ryan May MD [address] [place] [address] Specialty Automatic Serging Machine Operator Vascular Surgery 10/13/21 Geronimo Medina, [address] [address] Machinery Rigger Cardiology 10/13/21 Tamika Almaguer [facility] Chief Investigator 09/26/17 Tumblers Supervisor Relationship Specialty Start Date End Date Daija Morton MD [address] [place] [address] PCP - General Internal Medicine 03/21/17 13, Pharmacist [address]95 [place] [address] Pharmacist Pharmacy 06/17/21 Kaye Ortega MD [address] [place] [address] General Surgery 09/21/21 Ye Coello MD [address] [place], [place] [id number] General Surgery 10/13/21 Emilie Jauregui PA-C [address] [place] [address] Specialty Automatic Serging Machine Operator Pulmonary and Critical Care Medicine 10/13/21 Ryan May MD [address] [place] [address] Specialty Automatic Serging Machine Operator Vascular Surgery 10/13/21 Geronimo Medina DO [address] [address] Machinery Rigger Cardiology 10/13/21 Tamika Almaguer PASSPORT Chief Investigator 09/26/17 Tumblers Supervisor Relationship Specialty Start Date End Date Daija Morton MD [address] [place] [address] PCP - General Internal Medicine 03/21/17 13, Pharmacist [address]606 [place] [address] Pharmacist Pharmacy 06/17/21 Kaye Ortega MD [address] [place] [address] General Surgery 09/21/21 Ye Coello MD [address] [place], [place] [id number] General Surgery 10/13/21 Emilie Jauregui PA-C [address] [place] [address] Specialty Automatic Serging Machine Operator Pulmonary and Critical Care Medicine 10/13/21 Ryan May MD [address] [place] [address] Specialty Automatic Serging Machine Operator Vascular Surgery 10/13/21 Geronimo Medina, DO [address] [address] Machinery Rigger Cardiology 10/13/21 Tamika Almaguer PASSPORT Chief Investigator 09/26/17 Tumblers Supervisor Relationship Specialty Start Date End Date Daija Morton MD [address] [place] [address] PCP - General Internal Medicine 03/21/17 13, Pharmacist [address]64 [place] [address] Pharmacist Pharmacy 06/17/21 Kaye Ortega MD [address] [place] [address] General Surgery 09/21/21 Ye Coello MD [address] [facility] [place], [place] [id number] General Surgery 10/13/21 Emilie Jauregui PA-C [address] [place] [address] Specialty Automatic Serging Machine Operator Pulmonary and Critical Care Medicine 10/13/21 Ryan May MD [address] [place], [place] 7523895 Specialty Automatic Serging Machine Operator Vascular Surgery 10/13/21 Geronimo Medina DO [address] [phone] Machinery Rigger Cardiology 10/13/21 Tamika Almaguer [facility] Chief Investigator 09/26/17 Tumblers Supervisor Relationship Specialty Start Date End Date Daija Morton MD [address] [place], [place] 455541 PCP - General Internal Medicine 03/21/17 13, Pharmacist [address] [place] [address] Pharmacist Pharmacy 06/17/21 Kaye Ortega MD [address] [place] [address] General Surgery 09/21/21 Ye Coello MD [address] [place], [place] [id number] General Surgery 10/13/21 Emilie Jauregui PA-C [address] [place] [address] Specialty Automatic Serging Machine Operator Pulmonary and Critical Care Medicine 10/13/21 Ryan May MD [address] [place] [address] Specialty Automatic Serging Machine Operator Vascular Surgery 10/13/21 Geronimo Medina DO [address] [address] Machinery Rigger Cardiology 10/13/21 Tamika HARRELL Chief Investigator 09/26/17 Tumblers Supervisor Relationship Specialty Start Date End Date Daija Morton MD [address] [place] [address] PCP - General Internal Medicine 03/21/17 13, Pharmacist [address]048 [place] [address] Pharmacist Pharmacy 06/17/21 Kaye Ortega MD [address] [place] [address] General Surgery 09/21/21 Ye Coello MD [address] [place], [place] [id number] General Surgery 10/13/21 Emilie Jauregui PA-C [address] [place] [address] Specialty Automatic Serging Machine Operator Pulmonary and Critical Care Medicine 10/13/21 Ryan May MD [address] [place] [address] Specialty Automatic Serging Machine Operator Vascular Surgery 10/13/21 Geronimo Medina DO [address] [address] Machinery Rigger Cardiology 10/13/21 Tamika HARRELL Chief Investigator 09/26/17 Tumblers Supervisor Relationship Specialty Start Date End Date Daija Morton MD [address] [place] [address] PCP - General Internal Medicine 03/21/17 13, Pharmacist [address]99 [place] [address] Pharmacist Pharmacy 06/17/21 Kaye Ortega MD [address] [place] [address]23[address] General Surgery 09/21/21 Ye Coello MD [address] [place], [place] [id number] General Surgery 10/13/21 Emilie Jauregui PA-C [address] [place] [address] Specialty Automatic Serging Machine Operator Pulmonary and Critical Care Medicine 10/13/21 Ryan May MD [address] [place] [address] Specialty Automatic Serging Machine Operator Vascular Surgery 10/13/21 Geronimo Medina, [address] [address] Machinery Rigger Cardiology 10/13/21 Tamika Almaguer [facility] Chief Investigator 09/26/17 Tumblers Supervisor Relationship Specialty Start Date End Date Daija Morton MD [address] [place], [place] 73985691 PCP - General Internal Medicine 03/21/17 13, Pharmacist 32314 [place] [address] Pharmacist Pharmacy 06/17/21 Kaye Ortega MD [address] [place] [address]99[address]23[address] General Surgery 09/21/21 Ye Coello MD [address] [place], [place] [id number] General Surgery 10/13/21 Emilie Jauregui PA-C [address] [place], [place] 621351 Specialty Automatic Serging Machine Operator Pulmonary and Critical Care Medicine 10/13/21 Ryan May MD [address] [place], [place] 4283795 Specialty Automatic Serging Machine Operator Vascular Surgery 10/13/21 Geronimo Medina, DO [address] [address] Machinery Rigger Cardiology 10/13/21 Tamika Almaguer [facility] Chief Investigator 09/26/17 Tumblers Supervisor Relationship Specialty Start Date End Date Daija Morton MD [address] [place], [place] 310441 PCP - General Internal Medicine 03/21/17 13, Pharmacist [address] [place] [address] Pharmacist Pharmacy 06/17/21 Kaye Ortega MD [address] [place] [address] General Surgery 09/21/21 Ye Coello MD [address] [place], [place] [id number] General Surgery 10/13/21 Emilie Jauregui PA-C [address] [place] [address] Specialty Automatic Serging Machine Operator Pulmonary and Critical Care Medicine 10/13/21 Ryan May MD [address] [place], [place] 9970195 Specialty Automatic Serging Machine Operator Vascular Surgery 10/13/21 Geronimo Medina DO [address] [address] Machinery Rigger Cardiology 10/13/21 Tamika Almaguer PASSPORT Chief Investigator 09/26/17 Tumblers Supervisor Relationship Specialty Start Date End Date Daija Morton MD [address] [place], [place] 819781 PCP - General Internal Medicine 03/21/17 13, Pharmacist [address] [place] [address] Pharmacist Pharmacy 06/17/21 Kaye Ortega MD [address] [place] [address] General Surgery 09/21/21 Ye Coello MD [address] [place], [place] [id number] General Surgery 10/13/21 Emilie Jauregui PA-C [address] [place], [place] 986461 Specialty Automatic Serging Machine Operator Pulmonary and Critical Care Medicine 10/13/21 Ryan May MD [address] [place], [place] 7688195 Specialty Automatic Serging Machine Operator Vascular Surgery 10/13/21 Geronimo Medina, DO [address] [address] Machinery Rigger Cardiology 10/13/21 Tamika Almaguer PASSPORT Chief Investigator 09/26/17 Tumblers Supervisor Relationship Specialty Start Date End Date Daija Morton MD [address] [place], [place] 52967691 PCP - General Internal Medicine 03/21/17 13, Pharmacist [address] [place] [address] Pharmacist Pharmacy 06/17/21 Kaye Ortega MD [address] [place] [address] General Surgery 09/21/21 Ye Coello MD [address] [place], [place] [id number] General Surgery 10/13/21 Emilie Jauregui PA-C [address] [place] [address] Specialty Automatic Serging Machine Operator Pulmonary and Critical Care Medicine 10/13/21 Ryan May MD [address] [place] [address] Specialty Automatic Serging Machine Operator Vascular Surgery 10/13/21 Geronimo Medina DO [address] [address] Machinery Rigger Cardiology 10/13/21 Tamika Almaguer [facility] Chief Investigator 09/26/17 Tumblers Supervisor Relationship Specialty Start Date End Date Daija Morton MD [address] [place] [address] PCP - General Internal Medicine 03/21/17 13, Pharmacist [address] [place] [address] Pharmacist Pharmacy 06/17/21 Kaye Ortega MD [address] [place] [address] General Surgery 09/21/21 Ye Coello MD [address] [place], [place] [id number] General Surgery 10/13/21 Emilie Jauregui PA-C [address] [place] [address] Specialty Automatic Serging Machine Operator Pulmonary and Critical Care Medicine 10/13/21 Ryan May MD [address] [place] [address] Specialty Automatic Serging Machine Operator Vascular Surgery 10/13/21 Geronimo Medina DO [address] [address] Machinery Rigger Cardiology 10/13/21 Tamika HARRELL Chief Investigator 09/26/17 Tumblers Supervisor Relationship Specialty Start Date End Date Daija Morton MD [address] [place] [address] PCP - General Internal Medicine 03/21/17 13, Pharmacist [address] [place] [address] Pharmacist Pharmacy 06/17/21 Kaye Ortega MD [address] [place] [address]23[address] General Surgery 09/21/21 Ye Coello MD [address] [place], [place] 547295 General Surgery 10/13/21 Emilie Jauregui PA-C [address] [place] [address] Specialty Automatic Serging Machine Operator Pulmonary and Critical Care Medicine 10/13/21 Ryan May MD [address] [place] [address] Specialty Automatic Serging Machine Operator Vascular Surgery 10/13/21 Geronimo Medina DO [address] [address] Machinery Rigger Cardiology 10/13/21 Tamika HARRELL Chief Investigator 09/26/17 Tumblers Supervisor Relationship Specialty Start Date End Date Daija Morton MD [address] [place] [address] PCP - General Internal Medicine 03/21/17 13, Pharmacist [address]105 [place] [address] Pharmacist Pharmacy 06/17/21 Kaye Ortega MD [address] [place] [address] General Surgery 09/21/21 Ye Coello MD [address] [place], [place] [id number] General Surgery 10/13/21 Emilie Jauregui PA-C [address] [place], [place] 856631 Specialty Automatic Serging Machine Operator Pulmonary and Critical Care Medicine 10/13/21 Ryan May MD [address] [place] [address] Specialty Automatic Serging Machine Operator Vascular Surgery 10/13/21 Geronimo Medina, [address] [id number] Machinery Rigger Cardiology 10/13/21 Tamika Almaguer [facility] Chief Investigator 09/26/17 Tumblers Supervisor Relationship Specialty Start Date End Date Daija Morton MD [address] [place], [place] [id number] PCP - General Internal Medicine 03/21/17 13, Pharmacist [phone] [place] [address] Pharmacist Pharmacy 06/17/21 Kaye Ortega MD [address] [place] [address] General Surgery 09/21/21 Ye Coello MD [address] [place], [place] [id number] General Surgery 10/13/21 Emilie Jauregui PA-C [address] [place] [address] Specialty Automatic Serging Machine Operator Pulmonary and Critical Care Medicine 10/13/21 Ryan May MD [address] [place], [place] 3337395 Specialty Automatic Serging Machine Operator Vascular Surgery 10/13/21 Geronimo Medina DO [address] [address] Machinery Rigger Cardiology 10/13/21 Tamika Almaguer [facility] Chief Investigator 09/26/17 Tumblers Supervisor Relationship Specialty Start Date End Date Daija Morton MD [address] [place] [address] PCP - General Internal Medicine 03/21/17 13, Pharmacist [phone] [place] [address] Pharmacist Pharmacy 06/17/21 Kaye Ortega MD [address] [place] [address] General Surgery 09/21/21 Ye Coello MD [address] [place] [address] General Surgery 10/13/21 Emilie Jauregui PA-C [address] [place] [address] Specialty Automatic Serging Machine Operator Pulmonary and Critical Care Medicine 10/13/21 Ryan May MD [address] [place], [place] [id number] Specialty Automatic Serging Machine Operator Vascular Surgery 10/13/21 Geronimo Medina DO [address] [address] Machinery Rigger Cardiology 10/13/21 Tamika Almaguer [employer] Chief Investigator 09/26/17 Tumblers Supervisor Relationship Specialty Start Date End Date Daija Morton MD [address] [place] [address] PCP - General Internal Medicine 03/21/17 13, Pharmacist [phone] [place] [address] Pharmacist Pharmacy 06/17/21 Kaye Ortega MD [address] [place] [phone] General Surgery 09/21/21 Ye Coello MD [address] [place], [place] [id number] General Surgery 10/13/21 Emilie Jauregui PA-C [address] [place] [address] Specialty Automatic Serging Machine Operator Pulmonary and Critical Care Medicine 10/13/21 Ryan May MD [address] [place], [place] 1549495 Specialty Automatic Serging Machine Operator Vascular Surgery 10/13/21 Geronimo Medina, [address] [address] Machinery Rigger Cardiology 10/13/21 Tamika Almaguer [employer] Chief Investigator 09/26/17 Tumblers Supervisor Relationship Specialty Start Date End Date Daija Morton MD [address] [place] [address] PCP - General Internal Medicine 03/21/17 13, Pharmacist [phone] [place] [address] Pharmacist Pharmacy 06/17/21 Kaye Ortega MD [address] [place] [address] General Surgery 09/21/21 Ye Coello MD [address] [place] [address] General Surgery 10/13/21 Emilie Jauregui, PANeshaC [address] [place] [address] Specialty Automatic Serging Machine Operator Pulmonary and Critical Care Medicine 10/13/21 Ryan Mya MD [address] [place], [place] 1749195 Specialty Automatic Serging Machine Operator Vascular Surgery 10/13/21 Geronimo Medina, [address] [address] Machinery Rigger Cardiology 10/13/21 Tamika Almaguer [facility] Chief Investigator 09/26/17 Tumblers Supervisor Relationship Specialty Start Date End Date Daija Morton MD [address] [place] [address] PCP - General Internal Medicine 03/21/17 13, Pharmacist [phone] [place] [address] Pharmacist Pharmacy 06/17/21 Kaye Ortega MD [address] [place] [address] General Surgery 09/21/21 Ye Coello MD [address] [place] [address] General Surgery 10/13/21 Emilie Jauregui, PA-C [address] [place] [address] Specialty Automatic Serging Machine Operator Pulmonary and Critical Care Medicine 10/13/21 Ryan May MD [address] [place] [address] Specialty Automatic Serging Machine Operator Vascular Surgery 10/13/21 Geronimo Medina DO [address] [address] Machinery Rigger Cardiology 10/13/21 Tamika HARRELL Chief Investigator 09/26/17 Tumblers Supervisor Relationship Specialty Start Date End Date Daija Morton MD [address] [place] [address] PCP - General Internal Medicine 03/21/17 13, Pharmacist [phone] [place] [address] Pharmacist Pharmacy 06/17/21 Kaye Ortega MD [address] [place] [address] General Surgery 09/21/21 Ye Coello MD [address] [place], [place] 937405 General Surgery 10/13/21 Emilie Jauregui PA-C [address] [place] [address] Specialty Automatic Serging Machine Operator Pulmonary and Critical Care Medicine 10/13/21 Ryan May MD [address] [place] [address] Specialty Automatic Serging Machine Operator Vascular Surgery 10/13/21 Geronimo Medina DO [address] [address] Machinery Rigger Cardiology 10/13/21 Tamika HARRELL Chief Investigator 09/26/17 Tumblers Supervisor Relationship Specialty Start Date End Date Daija Morton MD [address] [place] [address] PCP - General Internal Medicine 03/21/17 13, Pharmacist [phone] [place] [address] Pharmacist Pharmacy 06/17/21 Kaye Ortega MD [address] [place] [address] General Surgery 09/21/21 Ye Coello MD [address] [place], [place] [id number] General Surgery 10/13/21 Emilie Jauregui, PA-C [address] [place] [address] Specialty Automatic Serging Machine Operator Pulmonary and Critical Care Medicine 10/13/21 Ryan May MD [address] [place] [address] Specialty Automatic Serging Machine Operator Vascular Surgery 10/13/21 Geronimo Medina DO [address] [address] Machinery Rigger Cardiology 10/13/21 Tamika Almaguer [facility] Chief Investigator 09/26/17 Tumblers Supervisor Relationship Specialty Start Date End Date Daija Morton MD [address] [place] [address] PCP - General Internal Medicine 03/21/17 13, Pharmacist [phone] [place] [address] Pharmacist Pharmacy 06/17/21 Kaye Ortega MD [address] [place] [address] General Surgery 09/21/21 Ye Coello MD [address] [place], [place] [id number] General Surgery 10/13/21 Emilie Jauregui, PA-C [address] [place] [address] Specialty Automatic Serging Machine Operator Pulmonary and Critical Care Medicine 10/13/21 Ryan May MD [address] [place], [place] [id number] Specialty Automatic Serging Machine Operator Vascular Surgery 10/13/21 Geronimo Medina, [address] [address] Machinery Rigger Cardiology 10/13/21 Tamika HARRELL Chief Investigator 09/26/17 Tumblers Supervisor Relationship Specialty Start Date End Date Daija Morton MD [address] [place] [address] PCP - General Internal Medicine 03/21/17 13, Pharmacist [address] [place] [address] Pharmacist Pharmacy 06/17/21 Kaye Ortega MD [address] [place] [address] General Surgery 09/21/21 Ye Coello MD [address] [place] [address] General Surgery 10/13/21 Emilie Jauregui PA-C [address] [place] [address] Specialty Automatic Serging Machine Operator Pulmonary and Critical Care Medicine 10/13/21 Ryan May MD [address] [facility] [place], [place] 036[address]95 Specialty Automatic Serging Machine Operator Vascular Surgery 10/13/21 Geronimo Medina, [address] [address] Machinery Rigger Cardiology 10/13/21 Tamika HARRELL Chief Investigator 09/26/17 Tumblers Supervisor Relationship Specialty Start Date End Date Daija Morton MD [address] [place] [address] PCP - General Internal Medicine 03/21/17 13, Pharmacist [phone] [place] [address] Pharmacist Pharmacy 06/17/21 Kaye Ortega MD [address] [place] [address] General Surgery 09/21/21 Ye Coello MD [address] [place], [place] [id number] General Surgery 10/13/21 Emilie Jauregui PA-C [address] [place] [address] Specialty Automatic Serging Machine Operator Pulmonary and Critical Care Medicine 10/13/21 Ryan May MD [address] [place] [address] Specialty Automatic Serging Machine Operator Vascular Surgery 10/13/21 Geronimo Medina, DO [address] [address] Machinery Rigger Cardiology 10/13/21 Tamika Almaguer [employer] Chief Investigator 09/26/17 Tumblers Supervisor Relationship Specialty Start Date End Date Daija Morton MD [address] [place] [address] PCP - General Internal Medicine 03/21/17 13, Pharmacist [phone] [place] [address] Pharmacist Pharmacy 06/17/21 Kaye Ortega MD [address] [place] [address] General Surgery 09/21/21 Ye Coello MD [address] [place], [place] [id number] General Surgery 10/13/21 Emilie Jauregui PA-C [address] [place] [address] Specialty Automatic Serging Machine Operator Pulmonary and Critical Care Medicine 10/13/21 Ryan May MD [address] [place] [address] Specialty Automatic Serging Machine Operator Vascular Surgery 10/13/21 Geronimo Medina, DO [address] [id number] Machinery Rigger Cardiology 10/13/21 Tamika Almaguer [facility] Chief Investigator 09/26/17 Tumblers Supervisor Relationship Specialty Start Date End Date Daija Morton MD [address] [place] [address] PCP - General Internal Medicine 03/21/17 13, Pharmacist [address] [place] [address] Pharmacist Pharmacy 06/17/21 04/12/22 Kaye Ortega MD [address] [place] [address] General Surgery 09/21/21 Ye Coello MD [address] [place], [place] [id number] General Surgery 10/13/21 Emilie Jauregui PA-C [address] [place] [address] Specialty Automatic Serging Machine Operator Pulmonary and Critical Care Medicine 10/13/21 Ryan May MD [address] [place] [address] Specialty Automatic Serging Machine Operator Vascular Surgery 10/13/21 Geronimo Medina DO [address] [address] Machinery Rigger Cardiology 10/13/21 Tamika Almaguer [employer] Chief Investigator 09/26/17 Team Status: Active Member Role Status [...] Provider Active Андрей Cooley Attending Provider Active Tumblers Supervisor Relationship Specialty Start Date End Date Daija Morton MD [address] [place], [place] [id number] PCP - General Internal Medicine 03/21/17 Kaye Ortega MD [address] [place] [address] General Surgery 09/21/21 Ye Coello MD [address] [place], [place] [id number] General Surgery 10/13/21 Emilie Jauregui PA-C [address] [place], [place] 717791 Specialty Automatic Serging Machine Operator Pulmonary and Critical Care Medicine 10/13/21 Ryan May MD [address] [place] [address] Specialty Automatic Serging Machine Operator Vascular Surgery 10/13/21 Geronimo Medina DO [address] [address] Machinery Rigger Cardiology 10/13/21 Tamika Almaguer [employer] Chief Investigator 09/26/17 Tumblers Supervisor Relationship Specialty Start Date End Date Daija Morton MD [address] [facility] [place] [place] [address] PCP - General Internal Medicine 03/21/17 Kaye Ortega MD [address] [place] [address] General Surgery 09/21/21 Ye Coello MD [address] [place], [place] 556825 General Surgery 10/13/21 Emilie Jauregui PA-C [address] [place] [address] Specialty Automatic Serging Machine Operator Pulmonary and Critical Care Medicine 10/13/21 Ryan May MD [address] [place] [address] Specialty Automatic Serging Machine Operator Vascular Surgery 10/13/21 Geronimo Medina DO [address] [address] Machinery Rigger Cardiology 10/13/21 Tamika Almaguer [facility] Chief Investigator 09/26/17 Tumblers Supervisor Relationship Specialty Start Date End Date Daija Morton MD [address] [facility] [place] [address] PCP - General Internal Medicine 03/21/17 Kaye Ortega MD [address] [place] [address] General Surgery 09/21/21 Ye Coello MD [address] [place] [address] General Surgery 10/13/21 Emilie Jauregui PA-C [address] [place] [address] Specialty Automatic Serging Machine Operator Pulmonary and Critical Care Medicine 10/13/21 Ryan May MD [address] [place] [address] Specialty Automatic Serging Machine Operator Vascular Surgery 10/13/21 Geronimo Medina, DO [address] [address] Machinery Rigger Cardiology 10/13/21 Tamika HARRELL Chief Investigator 09/26/17 Tumblers Supervisor Relationship Specialty Start Date End Date Daija Morton MD [address] [place] [address] PCP - General Internal Medicine 03/21/17 Kaye Ortega MD [address] [place] [address] General Surgery 09/21/21 Ye Coello MD [address] [place] [address] General Surgery 10/13/21 Emilie Jauregui PA-C [address] [place] [address] Specialty Automatic Serging Machine Operator Pulmonary and Critical Care Medicine 10/13/21 Ryan May MD [address] [place] [address] Specialty Automatic Serging Machine Operator Vascular Surgery 10/13/21 Geronimo Medina, DO [address] [address] Machinery Rigger Cardiology 10/13/21 Tamika HARRELL Chief Investigator 09/26/17 Tumblers Supervisor Relationship Specialty Start Date End Date Daija Morton MD [address] [place] [address] PCP - General Internal Medicine 03/21/17 Kaye Ortega MD [address] [place] [address] General Surgery 09/21/21 Ye Coello MD [address] [place] [address] General Surgery 10/13/21 Emilie Jauregui PANeshaC [address] [place] [place] [address] Specialty Automatic Serging Machine Operator Pulmonary and Critical Care Medicine 10/13/21 Ryan May MD [address] [place] [place], [place] 6050695 Specialty Automatic Serging Machine Operator Vascular Surgery 10/13/21 Geronimo Medina, DO [address] [address] Machinery Rigger Cardiology 10/13/21 Tamika Canales [facility] Chief Investigator 09/26/17 Tumblers Supervisor Relationship Specialty Start Date End Date Daija Morton MD [address] [facility] [place] [address] PCP - General Internal Medicine 03/21/17 Kaye Ortega MD [address] [place] [address] General Surgery 09/21/21 Ye Coello MD [address] [place], [place] [phone] General Surgery 10/13/21 Emilie Jauregui PA-C [address] [place] [place] [address] Specialty Automatic Serging Machine Operator Pulmonary and Critical Care Medicine 10/13/21 Ryan May MD [address] [place] [address] Specialty Automatic Serging Machine Operator Vascular Surgery 10/13/21 Geronimo Medina DO [address] [address] Machinery Rigger Cardiology 10/13/21 Tamika HARRELL Chief Investigator 09/26/17 Tumblers Supervisor Relationship Specialty Start Date End Date Daija Morton MD [address] [place] [address] PCP - General Internal Medicine 03/21/17 Kaye Ortega MD [address] [place] [address] General Surgery 09/21/21 Ye Coello MD [address] [place] [address] General Surgery 10/13/21 Emilie Jauregui PA-C [address] [place] [address] Specialty Automatic Serging Machine Operator Pulmonary and Critical Care Medicine 10/13/21 Ryan May MD [address] [place] [address] Specialty Automatic Serging Machine Operator Vascular Surgery 10/13/21 Geronimo Medina DO [address] [address] Machinery Rigger Cardiology 10/13/21 Tamika HARRELL Chief Investigator 09/26/17 Tumblers Supervisor Relationship Specialty Start Date End Date Daija Morton MD [address] [place] [address] PCP - General Internal Medicine 03/21/17 Kaye Ortega MD [address] [place] [address] General Surgery 09/21/21 Ye Coello MD [address] [place], [place] [id number] General Surgery 10/13/21 Emilie Jauregui PA-C [address] [place] [address] Specialty Automatic Serging Machine Operator Pulmonary and Critical Care Medicine 10/13/21 Ryan May MD [address] [place] [address] Specialty Automatic Serging Machine Operator Vascular Surgery 10/13/21 Geronimo Medina DO [address] [address] Machinery Rigger Cardiology 10/13/21 Tamika [facility] Chief Investigator 09/26/17 Team Status: Inactive Member Role Status Dates Dr. Daija Morton MD Primary Care Provider Active Андрей RAIN Attending Provider Active Team Status: Inactive Member Role Status Dates Dr. Daija Morton MD Primary Care Provider Active Dr. Jaden Jauregui MD Emergency Provider Active Tumblers Supervisor Relationship Specialty Start Date End Date Daija Morton MD [address] [place], [place] 691141 PCP - General Internal Medicine 03/21/17 Kaye Ortega MD [address] [place] [address] General Surgery 09/21/21 Ye Coello MD [address] [place], [place] 47382685 General Surgery 10/13/21 Emilie Jauregiu PA-C [address] [place] [address] Specialty Automatic Serging Machine Operator Pulmonary and Critical Care Medicine 10/13/21 Ryan May MD [address] [place] [address] Specialty Automatic Serging Machine Operator Vascular Surgery 10/13/21 Geronimo Medina DO [address] [address] Machinery Rigger Cardiology 10/13/21 Tamika Canales [facility] Chief Investigator 09/26/17 Tumblers Supervisor Relationship Specialty Start Date End Date Daija Morton MD [address] [place], [place] 534281 PCP - General Internal Medicine 03/21/17 Kaye Ortega MD [address] [place] [address] General Surgery 09/21/21 Ye Coello MD [address] [place], [place] 700425 General Surgery 10/13/21 Emilie Jauregui PA-C [address] [place] [address] Specialty Automatic Serging Machine Operator Pulmonary and Critical Care Medicine 10/13/21 Ryan May MD [address] [place] [address] Specialty Automatic Serging Machine Operator Vascular Surgery 10/13/21 Geronimo Medina DO [address] [address] Machinery Rigger Cardiology 10/13/21 Tamika Almaguer [employer] Chief Investigator 09/26/17 Team Status: Inactive Member Role Status Dates Dr. Daija Morton MD Primary Care Provider Active Dr. Jaden Jauregui MD Attending Provider, Emergency Provider Active Team Status: Inactive Member Role Status Dates Dr. Daija Morton MD Primary Care Provider Active Dr. Huber Alvarado MD Emergency Provider Active Tumblers Supervisor Relationship Specialty Start Date End Date Daija Morton MD [address] [place], [place] 408251 PCP - General Internal Medicine 03/21/17 Kaye Ortega MD [address] [place] [address] General Surgery 09/21/21 Ye Coello MD [address] [place], [place] 492355 General Surgery 10/13/21 Emilie Jauregui, PA-C [address] [place], [place] 617651 Specialty Automatic Serging Machine Operator Pulmonary and Critical Care Medicine 10/13/21 Ryan May MD [address] [place] [address] Specialty Automatic Serging Machine Operator Vascular Surgery 10/13/21 Geronimo Medina DO [address] [address] Machinery Rigger Cardiology 10/13/21 Tamika Almaguer [employer] Chief Investigator 09/26/17 Team Status: Inactive Member Role Status Dates Dr. Daija Morton MD Primary Care Provider Active Dr. Huber Alvarado MD Attending Provider, Emergency Provider Active Tumblers Supervisor Relationship Specialty Start Date End Date Daija Morton MD [address] [place], [place] 004071 PCP - General Internal Medicine 03/21/17 Kaye Ortega MD [address] [place] [address] General Surgery 09/21/21 Ye Coello MD [address] [place], [place] 324685 General Surgery 10/13/21 Emilie Jauregui PANeshaC [address] [place] [address] Specialty Automatic Serging Machine Operator Pulmonary and Critical Care Medicine 10/13/21 Ryan May MD [address] [place] [address] Specialty Automatic Serging Machine Operator Vascular Surgery 10/13/21 Geronimo Medina DO [address] [address] Machinery Rigger Cardiology 10/13/21 Tamika Almaguer [facility] Chief Investigator 09/26/17 Team Status: Active Member Role Status [...] MD Admit Provider, Attending Pro vider Active Tumblers Supervisor Relationship Specialty Start Date End Date Daija Morton MD [address] [place] [address] PCP - General Internal Medicine 03/21/17 Kaye Ortega MD [address] [place] [address] General Surgery 09/21/21 Ye Coello MD [address] [place], [place] 858225 General Surgery 10/13/21 Emilie Jauregui PA-C [address] [place] [address] Specialty Automatic Serging Machine Operator Pulmonary and Critical Care Medicine 10/13/21 Ryan May MD [address] [place] [address] Specialty Automatic Serging Machine Operator Vascular Surgery 10/13/21 Geronimo Medina DO [address] [address] Machinery Rigger Cardiology 10/13/21 Tamika Almaguer [facility] Chief Investigator 09/26/17 Team Status: Active Member Role Status [...] Admit Provider, Other Provide r Active Dr. Franike Galindo MD Attending Provider, Other Provid er [...] Dr. Elton Moore MD Other Provider Active Tumblers Supervisor Relationship Specialty Start Date End Date Daija Morton MD [address] [place], [place] 102401 PCP - General Internal Medicine 03/21/17 Kaye Ortega MD [address] [place] [address] General Surgery 09/21/21 Ye Coello MD [address] [place], [place] 156375 General Surgery 10/13/21 Emilie Jauregui PA-C [address] [place], [place] 521131 Specialty Automatic Serging Machine Operator Pulmonary and Critical Care Medicine 10/13/21 Ryan May MD [address] [place] [address] Specialty Automatic Serging Machine Operator Vascular Surgery 10/13/21 Geronimo Medina DO [address] [address] Machinery Rigger Cardiology 10/13/21 Tamika HARRELL Chief Investigator 09/26/17 Tumblers Supervisor Relationship Specialty Start Date End Date Daija Morton MD [address] [place], [place] 976841 PCP - General Internal Medicine 03/21/17 Kaye Ortega MD [address] [place] [address] General Surgery 09/21/21 Ye Coello MD [address] [place], [place] 528385 General Surgery 10/13/21 Emilie Jauregui PA-C [address] [place] [address] Specialty Automatic Serging Machine Operator Pulmonary and Critical Care Medicine 10/13/21 Ryan May MD [address] [facility] [place] [address] Specialty Automatic Serging Machine Operator Vascular Surgery 10/13/21 Geronimo Medina DO [address] [place] [address] Machinery Rigger Cardiology 10/13/21 Tamika HARRELL Chief Investigator 09/26/17 Tumblers Supervisor Relationship Specialty Start Date End Date Daija Morton MD [address] [place] [address] PCP - General Internal Medicine 03/21/17 Kaye Ortega MD [address] [place] [address] General Surgery 09/21/21 Ye Coello MD [address] [place] [address] General Surgery 10/13/21 Emilie Jauregui PA-C [address] [place], [place] 836361 Specialty Automatic Serging Machine Operator Pulmonary and Critical Care Medicine 10/13/21 Ryan May MD [address] [place] [address] Specialty Automatic Serging Machine Operator Vascular Surgery 10/13/21 Geronimo Medina DO [address] [place] [address] Machinery Rigger Cardiology 10/13/21 [facility] Chief Investigator 09/26/17 Team Status: Inactive Member Role Status [...] Provi ashley, Attending Provider, Referring Provider Active Tumblers Supervisor Relationship Specialty Start Date End Date Daija Morton MD [address] [place] [address] PCP - General Internal Medicine 03/21/17 Kaye Ortega MD [address] [place] [address] General Surgery 09/21/21 Ye Coello MD [address] [place] [address] General Surgery 10/13/21 Emilie Jauregui PA-C [address] [place] [address] Specialty Automatic Serging Machine Operator Pulmonary and Critical Care Medicine 10/13/21 Ryan May MD [address] [place] [address] Specialty Automatic Serging Machine Operator Vascular Surgery 10/13/21 Geronimo Medina DO [address] [place] [address] Machinery Rigger Cardiology 10/13/21 Tamika Almaguer [facility] Chief Investigator 09/26/17 Team Status: Active Member Role Status Dates Dr. Daija Morton MD Primary Care Provider Active Dr. Raul Melchor DO Emergency Provider Active Dr. Андрей Cooley MD Attending Provider Active Team Status: Active Member Role Status Dates Dr. Daija Morton MD Primary Care Provider Active Dr. Ralu Melchor DO Emergency Provider Active Dr. Андрей [...] Primary Care Provider Active Dr. Raul Melchor , Emergency Provider Active Dr. Андрей Cooley MD [...] Provider, Other Provider Active Dr. Ryan Guerin , Attending Provider, Other Pro vider Active Team Status: Inactive Member Role Status Dates Dr. Daija Morton MD Primary Care Provider Active Dr. Huber Alvarado MD Emergency Provider Active Dr. Brody Maynard MD Admit Provider, Other Provider Active Dr. Ryan Guerin , Attending Provider Active Tumblers Supervisor Relationship Specialty Start Date End Date Daija Morton MD [address] [place] [address] PCP - General Internal Medicine 03/21/17 Kaye Ortega MD [address] [place] [address] General Surgery 09/21/21 Ye Coello MD [address] [place] [address] General Surgery 10/13/21 Emilie Jauregui PA-C [address] [place] [address] Specialty Automatic Serging Machine Operator Pulmonary and Critical Care Medicine 10/13/21 Ryan May MD [address] [place] [address] Specialty Automatic Serging Machine Operator Vascular Surgery 10/13/21 Geronimo Medina DO [address] [place] [address] Machinery Rigger Cardiology 10/13/21 Tamika HARRELL Chief Investigator 09/26/17 Tumblers Supervisor Relationship Specialty Start Date End Date Daija Morton MD [address] [place] [address] PCP - General Internal Medicine 03/21/17 Kaye Ortega MD [address] [place] [address] General Surgery 09/21/21 Ye Coello MD [address] [place] [address] General Surgery 10/13/21 Emilie Jauregui PA-C [address] [place] [address] Specialty Automatic Serging Machine Operator Pulmonary and Critical Care Medicine 10/13/21 Ryan May MD [address] [place] [address] Specialty Automatic Serging Machine Operator Vascular Surgery 10/13/21 Geronimo Medina DO [address] [place] [address] Machinery Rigger Cardiology 10/13/21 Tamika HARRELL Chief Investigator 09/26/17 Tumblers Supervisor Relationship Specialty Start Date End Date Daija Morton MD [address] [place] [address] PCP - General Internal Medicine 03/21/17 Kaye Ortega MD [address] [place] [address] General Surgery 09/21/21 Ye Coello MD [address] [place], [place] [address] General Surgery 10/13/21 Emilie Jauregui PA-C [address] [place] [address] Specialty Automatic Serging Machine Operator Pulmonary and Critical Care Medicine 10/13/21 Ryan May MD [address] [place] [address] Specialty Automatic Serging Machine Operator Vascular Surgery 10/13/21 Geronimo Medina DO [address] [place] [address] Machinery Rigger Cardiology 10/13/21 Tamika Almaguer [facility] Chief Investigator 09/26/17 Tumblers Supervisor Relationship Specialty Start Date End Date Daija Morton MD [address] [place] [address] PCP - General Internal Medicine 03/21/17 Kaye Ortega MD [address] [place] [address] General Surgery 09/21/21 Ye Coello MD [address] [place] [address] General Surgery 10/13/21 Emilie Jauregui PA-C [address] [place] [address] Specialty Automatic Serging Machine Operator Pulmonary and Critical Care Medicine 10/13/21 Ryan May MD [address] [place] [address] Specialty Automatic Serging Machine Operator Vascular Surgery 10/13/21 Geronimo Medina DO [address] [place] [address] Machinery Rigger Cardiology 10/13/21 Tamika Meyermary Tripp [facility] Chief Investigator 09/26/17 Tumblers Supervisor Relationship Specialty Start Date End Date Daija Morton MD [address] [place], [place] [id number] PCP - General Internal Medicine 03/21/17 Kaye Ortega MD [address] [place] [phone] General Surgery 09/21/21 Ye Coello MD [address] [place] [address] General Surgery 10/13/21 Emilie Jauregui, PA-C [address] [place], [place] [address] Specialty Automatic Serging Machine Operator Pulmonary and Critical Care Medicine 10/13/21 Ryan May MD [address] [place] [address] Specialty Automatic Serging Machine Operator Vascular Surgery 10/13/21 Geronimo Medina DO [address] [place] [address] Machinery Rigger Cardiology 10/13/21 Tamika Almaguer [employer] Chief Investigator 09/26/17 Tumblers Supervisor Relationship Specialty Start Date End Date Daija Morton MD [address] [place] [address] PCP - General Internal Medicine 03/21/17 Kaye Ortega MD [address] [place] [phone] General Surgery 09/21/21 Ye Coello MD [address] [place], [place] [address]005 General Surgery 10/13/21 Emilie Jauregui PA-C [address] [place], [place] [address] Specialty Automatic Serging Machine Operator Pulmonary and Critical Care Medicine 10/13/21 Ryan May MD [address] [place] [address] Specialty Automatic Serging Machine Operator Vascular Surgery 10/13/21 Geronimo Medina DO [address] [place] [address] Machinery Rigger Cardiology 10/13/21 Tamika Wagonerke [employer] Chief Investigator 09/26/17 Tumblers Supervisor Relationship Specialty Start Date End Date Daija Morton MD [address] [place], [place] [address]71 PCP - General Internal Medicine 03/21/17 Kaye Ortega MD [address] [place] [phone] General Surgery 09/21/21 Ye Coello MD [address] [place] [address] General Surgery 10/13/21 Emilie Jauregui PA-C [address] [facility] [address] [place], [place] [address] Specialty Automatic Serging Machine Operator Pulmonary and Critical Care Medicine 10/13/21 Ryan May MD [address] [place] [address] Specialty Automatic Serging Machine Operator Vascular Surgery 10/13/21 Geronimo Medina DO [address] [place] [address] Machinery Rigger Cardiology 10/13/21 Tamika Canales Tripp [facility] Chief Investigator 09/26/17 Tumblers Supervisor Relationship Specialty Start Date End Date Daija Morton MD [address] [place], [place] [address]1331 PCP - General Internal Medicine 03/21/17 Kaye Ortega MD [address] [place] [address] General Surgery 09/21/21 Ye Coello MD [address] [place] [address] General Surgery 10/13/21 Emilie Jauregui PA-C [address] [place] [address] Specialty Automatic Serging Machine Operator Pulmonary and Critical Care Medicine 10/13/21 Ryan May MD [address] [place] [address] Specialty Automatic Serging Machine Operator Vascular Surgery 10/13/21 Geronimo Medina DO [address] [place] [address] Machinery Rigger Cardiology 10/13/21 Tamika HARRELL Chief Investigator 09/26/17 Tumblers Supervisor Relationship Specialty Start Date End Date Daija Morton MD [address] [place], [place] [address]31 PCP - General Internal Medicine 03/21/17 Kaye Ortega MD [address] [place] [address] General Surgery 09/21/21 Ye Coello MD [address] [place], [place] 195145 General Surgery 10/13/21 Emilie Jauregui PA-C [address] [place] [address] Specialty Automatic Serging Machine Operator Pulmonary and Critical Care Medicine 10/13/21 Ryan May MD [address] [place] [address] Specialty Automatic Serging Machine Operator Vascular Surgery 10/13/21 Geronimo Medina DO [address] [place] [address] Machinery Rigger Cardiology 10/13/21 Tamika HARRELL Chief Investigator 09/26/17 Tumblers Supervisor Relationship Specialty Start Date End Date Daija Morton MD [address] [place] [address] PCP - General Internal Medicine 03/21/17 Beatriz Correa CNP [address] [place] [address] [place] [address] Referring 09/28/20 10/12/21 Daija Morton MD [address] [place] [address] Home Care Provider Internal Medicine 09/28/20 10/12/21 Fco Franklin, RN [address] [place] [address] Core Setter 10/08/20 12/21/20 Tamika Almaguer [facility] Chief Investigator 09/26/17 Tumblers Supervisor Relationship Specialty Start Date End Date Daija Morton MD [address] [place] [address] PCP - General Internal Medicine 03/21/17 Kaye Ortega MD [address] [place] [address] General Surgery 09/21/21 Ye Coello MD [address] [place] [address] General Surgery 10/13/21 Emilie Jauregui, PA-C [address] [place], [place] 195[address] Specialty Automatic Serging Machine Operator Pulmonary and Critical Care Medicine 10/13/21 Ryan May MD [address] [place] [address] Specialty Automatic Serging Machine Operator Vascular Surgery 10/13/21 Geronimo Medina DO [address] [place] [address] Machinery Rigger Cardiology 10/13/21 Tamika HARRELL Chief Investigator 09/26/17 Tumblers Supervisor Relationship Specialty Start Date End Date Daija Morton MD [address] [place], [place] [address]24801 PCP - General Internal Medicine 03/21/17 Kaye Ortega MD [address] [place] [phone] General Surgery 09/21/21 Ye Coello MD [address] [place] [address] General Surgery 10/13/21 Emilie Jauregui, PA-C [address] [place], [place] [address] Specialty Automatic Serging Machine Operator Pulmonary and Critical Care Medicine 10/13/21 Ryan May MD [address] [place] [address] Specialty Automatic Serging Machine Operator Vascular Surgery 10/13/21 Geronimo Medina DO [address] [place] [address] Machinery Rigger Cardiology 10/13/21 Tamika HARRELL Chief Investigator 09/26/17 Tumblers Supervisor Relationship Specialty Start Date End Date Daija Morton MD [address] [place], [place] [address]431 PCP - General Internal Medicine 03/21/17 Kaye Ortega MD [address] [place] [address] General Surgery 09/21/21 Ye Coello MD [address] [place], [place] [address] General Surgery 10/13/21 Emilie Jauregui PA-C [address] [place] [address] Specialty Automatic Serging Machine Operator Pulmonary and Critical Care Medicine 10/13/21 Ryan May MD [address] [place] [address] Specialty Automatic Serging Machine Operator Vascular Surgery 10/13/21 Geronimo Medina DO [address] [place] [address] Machinery Rigger Cardiology 10/13/21 Tamika Almaguer [facility] Chief Investigator 09/26/17 Tumblers Supervisor Relationship Specialty Start Date End Date Daija Morton MD [address] [place] [address] PCP - General Internal Medicine 03/21/17 Kaye Ortega MD [address] [place] [address] General Surgery 09/21/21 Ye Coello MD [address] [place] [address] General Surgery 10/13/21 Emilie Jauregui PA-C [address] [place] [address] Specialty Automatic Serging Machine Operator Pulmonary and Critical Care Medicine 10/13/21 Rayn May MD [address] [place] [address] Specialty Automatic Serging Machine Operator Vascular Surgery 10/13/21 Geronimo Medina DO [address] [place] [address] Machinery Rigger Cardiology 10/13/21 Tamika Almaguer [facility] Chief Investigator 09/26/17 Team Status: Active Member Role Status [...] Active Start: August 30, 2024 Dr. Lisha Talamantse DO Admit Provider Active Start : August [...] November 05, 2024 End: November 05, 2024 Tumblers Supervisor Relationship Specialty Start Date End Date Daija Morton MD [address] [place] [address] PCP - General Internal Medicine 03/21/17 Kaye Ortega MD [address] [place] [address] General Surgery 09/21/21 Ye Coello MD [address] [place], [place] 768335 General Surgery 10/13/21 Emilie Jauregui PA-C [address] [place], [place] [address] Specialty Automatic Serging Machine Operator Pulmonary and Critical Care Medicine 10/13/21 Ryan May MD [address] [place] [address] Specialty Automatic Serging Machine Operator Vascular Surgery 10/13/21 Geronimo Medina DO [address] [place] [address] Machinery Rigger Cardiology 10/13/21 Anjel Braga APRN.BOTTLER HELPER [address] [place], [place] [id number] Harness Inspector Internal Medicine 05/26/24 Tamika Ally [facility] Chief Investigator 09/26/17 Tumblers Supervisor Relationship Specialty Start Date End Date Daija Morton MD [address] [place], [place] [id number] PCP - General Internal Medicine 03/21/17 Kaye Ortega MD [address] [place] [address] General Surgery 09/21/21 Ye Coello MD [address] [place], [place] 3[address] General Surgery 10/13/21 Emilie Jauregui PA-C [address] [place], [place] [address] Specialty Automatic Serging Machine Operator Pulmonary and Critical Care Medicine 10/13/21 Ryan May MD [address] [place] [address] Specialty Automatic Serging Machine Operator Vascular Surgery 10/13/21 Geronimo Medina DO [address] [place] [address] Machinery Rigger Cardiology 10/13/21 Anjel Braga APRN.BOTTLER HELPER [address] [place], [place] [address] Harness Inspector Internal Medicine 05/26/24 Tamika Almaguer [facility] Chief Investigator 09/26/17 Tumblers Supervisor Relationship Specialty Start Date End Date Daija Morton MD [address] [place] [address] PCP - General Internal Medicine 03/21/17 Kaye Ortega MD [address] [place] [address] General Surgery 09/21/21 Ye Coello MD [address] [place], [place] 459325 General Surgery 10/13/21 Emilie Jauregui PA-C [address] [place], [place] [address] Specialty Automatic Serging Machine Operator Pulmonary and Critical Care Medicine 10/13/21 Ryan May MD [address] [place] [address] Specialty Automatic Serging Machine Operator Vascular Surgery 10/13/21 Geronimo Medina DO [address] [place] [address] Machinery Rigger Cardiology 10/13/21 Anjel Braga APRN.BOTTLER HELPER [address] [place] [address] Harness Inspector Internal Medicine 05/26/24 Tamika Almaguer [facility] Chief Investigator 09/26/17 Tumblers Supervisor Relationship Specialty Start Date End Date Daija Morton MD [address] [place], [place] 214201 PCP - General Internal Medicine 03/21/17 Kaye Ortega MD [address] [place] [address] General Surgery 09/21/21 Ye Coello MD [address] [place], [place] 958405 General Surgery 10/13/21 Emilie Jauregui, PA-C [address] [place] [address] Specialty Automatic Serging Machine Operator Pulmonary and Critical Care Medicine 10/13/21 Ryan May MD [address] [place] [address] Specialty Automatic Serging Machine Operator Vascular Surgery 10/13/21 Geronimo Medina DO [address] [place] [address] Machinery Rigger Cardiology 10/13/21 Anjel Braga APRN.BOTTLER HELPER [address] [place], [place] [address] Harness Inspector Internal Medicine 05/26/24 Tamika Almaguer [employer] Chief Investigator 09/26/17 Tumblers Supervisor Relationship Specialty Start Date End Date Daija Morton MD [address] [place] [address] PCP - General Internal Medicine 03/21/17 Kaye Ortega MD [address] [place] [address] General Surgery 09/21/21 Ye Coello MD [address] [place] [address] General Surgery 10/13/21 Emilie Jauregui, PA-C [address] [place] [address] Specialty Automatic Serging Machine Operator Pulmonary and Critical Care Medicine 10/13/21 Ryan May MD [address] [place] [address] Specialty Automatic Serging Machine Operator Vascular Surgery 10/13/21 Geronimo Medina DO [address] [place] [address] Machinery Rigger Cardiology 10/13/21 Anjel Braga APRN.BOTTLER HELPER [address] [place], [place] [address] Harness Inspector Internal Medicine 05/26/24 Tamika Almaguer [employer] Chief Investigator 09/26/17 Tumblers Supervisor Relationship Specialty Start Date End Date Daija Morton MD [address] [place], [place] [address]4071 PCP - General Internal Medicine 03/21/17 Kaye Ortega MD [address] [place] [address] General Surgery 09/21/21 Ye Coello MD [address] [place] [address] General Surgery 10/13/21 Emilie Jauregui, PANeshaC [address] [place], [place] 6[address] Specialty Automatic Serging Machine Operator Pulmonary and Critical Care Medicine 10/13/21 Ryan May MD [address] [place] [address] Specialty Automatic Serging Machine Operator Vascular Surgery 10/13/21 Geronimo Medina DO [address] [place] [address] Machinery Rigger Cardiology 10/13/21 Anjel Braga APRN.CNP [address] [place], [place] [address] Harness Inspector Internal Medicine 05/26/24 Tamika Almaguer [facility] Chief Investigator 09/26/17 Team Status: Active Member Role/Relationship Status [...] tart: August 25, 2024 Dr. Lisha Talamantes , Other Provider Active Start : August 25, 2024 Team Status: Active Member Role/Relationship Status Dates Dr. Daija Morton MD Primary Care Provider Active Start: August 26, 2024 Dr. Jaden Jauregui MD Emergency Provider Active Start: August 26, 2024 Dr. Lisha Talamantes DO Admit Provider Active Start : August 26, 2024 Dr. Lisha Talamantes DO Other Provider Active Start : August 26, 2024 Dr. eClia Toribio MD Attending Provider Active Start: August [...] Active Member Role/Relationship Status Dates Dr. Daija oMrton MD Primary Care Provider Active Start: December [...] End: December 16, 2024 Dr. Lisha Talamantes DO Attending Provider Active S tart: December 13, [...] Provider Active Start : December 16, 2024 Tumblers Supervisor Relationship Specialty Start Date End Date Daija Morton MD [address] [place], [place] [address]498[address] PCP - General Internal Medicine 03/21/17 Kaye Ortega MD [address] [place] [address] General Surgery 09/21/21 Ye Coello MD [address] [place], [place] 8[address]165 General Surgery 10/13/21 Emilie Jauregui PA-C [address] [place] [address] Specialty Automatic Serging Machine Operator Pulmonary and Critical Care Medicine 10/13/21 Ryan May MD [address] [place] [address] Specialty Automatic Serging Machine Operator Vascular Surgery 10/13/21 Geronimo Medina DO [address] [place] [address] Machinery Rigger Cardiology 10/13/21 Anjel Braga APRN.BOTTLER HELPER [address] [place], [place] [address]691 Harness Inspector Internal Medicine 05/26/24 [facility] Chief Investigator 09/26/17 Tumblers Supervisor Relationship Specialty Start Date End Date Daija Morton MD [address] [place], [place] [id number] PCP - General Internal Medicine 03/21/17 Kaye Ortega MD [address] [place] [address] General Surgery 09/21/21 Ye Coello MD [address] [place], [place] [id number] General Surgery 10/13/21 Emilie Jauregui PANeshaC [address] [place], [place] [address]6491 Specialty Automatic Serging Machine Operator Pulmonary and Critical Care Medicine 10/13/21 Ryan May MD [address] [place] [address] Specialty Automatic Serging Machine Operator Vascular Surgery 10/13/21 Geronimo Medina DO [address] [place] [address] Machinery Rigger Cardiology 10/13/21 Anjel Braga APRN.BOTTLER HELPER [address] [place], [place] [address] Harness Inspector Internal Medicine 05/26/24 Tamika HARRELL Chief Investigator 09/26/17 Team Status: Active Member Role/Relationship Status Dates Dr. Daija Morton MD Primary Care Provider Active Start: December 17, 2024 Dr. Seth Pritchard DO Emergency Provider Active Start: December 17, 2024 Dr. Roman Patel DO Admit Provider Active Start: December 17, 2024 Dr. Roman Patel DO Attending Provider Active Start: December 17, 2024 Tumblers Supervisor Relationship Specialty Start Date End Date Daija Morton MD [address] [place], [place] [address]21 PCP - General Internal Medicine 03/21/17 Kaye Ortega MD [address] [place] [address] General Surgery 09/21/21 Ye Coello MD [address] [place], [place] [id number] General Surgery 10/13/21 Emilie Jauregui, PA-C [address] [place], [place] [address] Specialty Automatic Serging Machine Operator Pulmonary and Critical Care Medicine 10/13/21 Ryan May MD [address] [place] [address] Specialty Automatic Serging Machine Operator Vascular Surgery 10/13/21 Geronimo Medina DO [address] [place] [address] Machinery Rigger Cardiology 10/13/21 Anjel Braga APRN.BOTTLER HELPER [address] [place] [address] Harness Inspector Internal Medicine 05/26/24 Tamika [facility] Chief Investigator 09/26/17 Team Status: Inactive Member Role/Relationship Status Dates [...] Active Start: December 02, 2024 Team Status: Inactive Member Role/Relationship Status [...] End: December 16, 2024 Dr. Lisha Talamantes DO Attending Provider Active S tart: December 13, [...] St art: December 13, 2024 Team Status: Active Member [...] S tart: December 14, 2024 Dr. Lisha Talamanets DO Other Provider Active Start : December [...] Provider Active Start : December 16, 2024 Team Status: Active Member Role/Relationship Status Dates Dr. Daija Morton MD Primary Care Provider Active Start: December 17, 2024 Dr. Seth Pritchard DO Emergency Provider Active Start: December 17, 2024 Dr. Roman Patel , Admit Provider Active Start: December 17, 2024 Dr. Roman Patel DO Attending Provider Active Start: December 17, 2024 Dr. Roman Patel DO Other Provider Active Start: December 17, 2024 Team Status: Active Member Role/Relationship Status Dates Dr. Daija Morton MD Primary Care Provider Active Start: December 18, 2024 Dr. Milton Guajardo MD Attending Provider Active Start: December 18, 2024 Team Status: Active Member Role/Relationship Status Dates Dr. Daija Morton MD Primary Care Provider Active Start: December 18, 2024 Dr. Seth Pritchard DO Emergency Provider Active Start: December 18, 2024 Dr. Roman Patel DO Admit Provider Active Start: December 18, 2024 Dr. Roman Patel DO Other Provider Active Start: December 18, 2024 Ricardo Mccullough MD Other Provider Active Start: 2024 Dr. Aung Peres MD Other Provider Active Start: December 18, 2024 Amy Chun MD Other Provider Active Start : December 18, 2024 Dr. Mackenzie Guzmán DO Other Provider Active St art: December 18, 2024 Dr. Gogo Gill MD Other Provider Active Start: December 18, 2024 Dr. Thomas Lofton MD Other Provider Active Sta rt: December 18, 2024 Dr. Kami Bolton MD Other Provider Active Start : December 18, 2024 Dr. Marco Hutchinson MD Other Provider Active Start: December 18, 2024 Dr. Noman Dumnot MD Other Provider Active Start : December 18, 2024 Dr. Ryan Vargas MD Other Provider Active Sta rt: December 18, 2024 Tamika Xiao MD Other Provider Active Start : December 18, 2024 Dr. Hans Rosales MD Other Provider Active St art: December 18, 2024 Dr. Daylin Schmitt MD Other Provider Active Start : December 18, 2024 Dr. René Reno MD Other Provider Active Sta rt: December 18, 2024 Dr. Fanny Rees MD Other Provider Active Start: December 18, 2024 Dr. Huber Ewing MD Other Provider Active St art: December 18, 2024 Dr. Billy Galo MD Other Provider Active Star t: December 18, 2024 Dr. Quentin Rasmussen MD Other Provider Active St art: December 18, 2024 Dr. Maya Talamantes MD Other Provider Active Start: December 18, 2024 Addi Art MD Other Provider Active Start: December 18, 2024 Dr. Lisha Talamantes DO Attending Provider Active S tart: December 18, 2024 Dr. Lisha Talamantes DO Other Provider Active Start : December 18, 2024 Team Status: Inactive Member Role/Relationship Status Dates Dr. Daija Morton MD Primary Care Provider Active Start: December 18, 2024 End: December 26, 2024 Dr. Seth Pritchard DO Emergency Provider Active Start: December 18, 2024 End: December 26, 2024 Dr. Roman Patel DO Admit Provider Active Start: December 18, 2024 End: December 26, 2024 Dr. Roman Patel DO Other Provider Active Start: December 18, 2024 End: December 26, 2024 Dr. Aung Peres MD Other Provider Active Start: December 18, 2024 End: December 26, 2024 Dr. Gogo Gill MD Other Provider Active Start: December 18, 2024 End: December 26, 2024 Dr. Ryan Vargas MD Other Provider Active Sta rt: December 18, 2024 End: December 26, 2024 Tamika Xiao MD Other Provider Active Start : December 18, 2024 End: December 26, 2024 Dr. Daylin Schmitt MD Other Provider Active Start : December 18, 2024 End: December 26, 2024 Chrystal Collier MD Other Provider Active Start : December 18, 2024 End: December 26, 2024 Luan Mcgraw MS Other Provider Active Start: Landry [email or web address] End: December 26, 2024 Jo Hughes MD Other Provider Active Start: December 18, 2024 End: December 26, 2024 JOSETTE YANG MD Other Provider Active Start: J 2024 End: December 26, 2024 Angelo Wiley MD Other Provider Active Start: December 18, 2024 End: December 26, 2024 Neelam Almendarez MD Other Provider Active Start: December 18, 2024 End: December 26, 2024 Dr. Shilpa Contreras MD Attending Provider Active Start: December 18, 2024 End: December 26, 2024 Dr. Lisha Talamantes DO Other Provider Active Start : December 18, 2024 End: December 26, 2024 Team Status: Active Member Role/Relationship Status Dates Dr. Daija Morton MD Primary Care Provider Active Start: December 19, 2024 Dr. Seth Pritchard DO Emergency Provider Active Start: December 19, 2024 Dr. Roman Patel DO Admit Provider Active Start: December 19, 2024 Dr. Roman Patel DO Other Provider Active Start: December 19, 2024 Ricardo Mccullough MD Other Provider Active Start: 2024 Dr. Aung Peres MD Other Provider Active Start: December 19, 2024 Amy Chun MD Other Provider Active Start : December 19, 2024 Dr. Mackenzie Guzmán DO Other Provider Active St art: December 19, 2024 Dr. Gogo Gill MD Other Provider Active Start: December 19, 2024 Dr. Thomas Lofton MD Other Provider Active Sta rt: December 19, 2024 Dr. Kami Bolton MD Other Provider Active Start : December 19, 2024 Dr. Marco Hutchinson MD Other Provider Active Start: December 19, 2024 Dr. Noman Dumont MD Other Provider Active Start : December 19, 2024 Dr. Ryan Vargas MD Other Provider Active Sta rt: December 19, 2024 Tamika Xiao MD Other Provider Active Start : December 19, 2024 Dr. Hans Rosales MD Other Provider Active St art: December 19, 2024 Dr. Daylin Schmitt MD Other Provider Active Start : December 19, 2024 Dr. René Reno MD Other Provider Active Sta rt: December 19, 2024 Dr. Fanny Rees MD Other Provider Active Start: December 19, 2024 Dr. Huber Ewing MD Other Provider Active St art: December 19, 2024 Dr. Billy Galo MD Other Provider Active Star t: December 19, 2024 Dr. Quentin Rasmussen MD Other Provider Active St art: December 19, 2024 Dr. Maya Talamantes MD Other Provider Active Start: December 19, 2024 Addi Art MD Other Provider Active Start: December 19, 2024 Dr. Lisha Talamantes DO Attending Provider Active S tart: December 19, 2024 Dr. Lisha Albin , DO Other Provider Active Start : December 19, 2024 Team Status: Active Member Role/Relationship Status Dates Dr. Daija Morton MD Primary Care Provider Active Start: December 20, 2024 Dr. Seth Pritchard DO Emergency Provider Active Start: December 20, 2024 Dr. Roman Patel , DO Admit Provider Active Start: December 20, 2024 Dr. Roman aPtel , DO Other Provider Active Start: December 20, 2024 Ricardo Mccullough MD Other Provider Active Start: 2024 Dr. Aung Peres MD Other Provider Active Start: December 20, 2024 Amy Chun MD Other Provider Active Start : December 20, 2024 Dr. Mackenzie Guzmán , Other Provider Active St art: December 20, 2024 Dr. Gogo Gill MD Other Provider Active Start: December 20, 2024 Dr. Thomas Lofton MD Other Provider Active Sta rt: December 20, 2024 Dr. Kami Bolton MD Other Provider Active Start : December 20, 2024 Dr. Marco Hutchinson MD Other Provider Active Start: December 20, 2024 Dr. Noman Dumont MD Other Provider Active Start : December 20, 2024 Dr. Ryan Vargas MD Other Provider Active Sta rt: December 20, 2024 Tamika Xiao MD Other Provider Active Start : December 20, 2024 Dr. Hans Rosales MD Other Provider Active St art: December 20, 2024 Dr. Daylin Schmitt MD Other Provider Active Start : December 20, 2024 Dr. René Reno MD Other Provider Active Sta rt: December 20, 2024 Dr. Fanny Rees MD Other Provider Active Start: December 20, 2024 Dr. Huber Ewing MD Other Provider Active St art: December 20, 2024 Dr. Billy Galo MD Other Provider Active Star t: December 20, 2024 Dr. Quentin Rasmussen MD Other Provider Active St art: December 20, 2024 Dr. Maya Talamantes MD Other Provider Active Start: December 20, 2024 Addi Art MD Other Provider Active Start: December 20, 2024 Dr. Lisha Talamantes DO Attending Provider Active S tart: December 20, 2024 Dr. Lisha Talamantes DO Other Provider Active Start : December 20, 2024 Chrystal Collier MD Other Provider Active Start : December 20, 2024 Angelo Wiley MD Other Provider Active Start: December 20, 2024 Neelam Almendarez MD Other Provider Active Start: December 20, 2024 Luan Mcgraw MS Other Provider Active Start: J chance2024 JOSETTE YANG MD Other Provider Active Start: J chance 2024 Jo Hughes MD Other Provider Active Start: December 20, 2024 Team Status: Active Member Role/Relationship Status Dates Dr. Daija Morton MD Primary Care Provider Active Start: December 21, 2024 Dr. Seth Pritchard , Emergency Provider Active Start: December 21, 2024 Dr. Roman Patel DO Admit Provider Active Start: December 21, 2024 Dr. Roman Patel DO Other Provider Active Start: December 21, 2024 Ricardo Mccullough MD Other Provider Active Start: 2024 Dr. Aung Peres MD Other Provider Active Start: December 21, 2024 Amy Chun MD Other Provider Active Start : December 21, 2024 Dr. Mackenzie Guzmán DO Other Provider Active St art: December 21, 2024 Dr. Gogo Gill MD Other Provider Active Start: December 21, 2024 Dr. Thomas Lofton MD Other Provider Active Sta rt: December 21, 2024 Dr. Kami Bolton MD Other Provider Active Start : December 21, 2024 Dr. Marco Hutchinson MD Other Provider Active Start: December 21, 2024 Dr. Noman Dumont MD Other Provider Active Start : December 21, 2024 Dr. Ryan Vargas MD Other Provider Active Sta rt: December 21, 2024 Tamika Xiao MD Other Provider Active Start : December 21, 2024 Dr. Hans Rosales MD Other Provider Active St art: December 21, 2024 Dr. Daylin Schmitt MD Other Provider Active Start : December 21, 2024 Dr. René Reno MD Other Provider Active Sta rt: December 21, 2024 Dr. Fanny Rees MD Other Provider Active Start: December 21, 2024 Dr. Huber Ewing MD Other Provider Active St art: December 21, 2024 Dr. Billy Galo MD Other Provider Active Star t: December 21, 2024 Dr. Quentin Rasmussen MD Other Provider Active St art: December 21, 2024 Dr. Maya Talamantes MD Other Provider Active Start: December 21, 2024 Addi Art MD Other Provider Active Start: December 21, 2024 Dr. Lisha Talamantes DO Attending Provider Active S tart: December 21, 2024 Dr. Lisha Talamantes DO Other Provider Active Start : December 21, 2024 Chrystal Collier MD Other Provider Active Start : December 21, 2024 Luan Mcgraw MS Other Provider Active Start: 2024 Jo Hughes MD Other Provider Active Start: December 21, 2024 JOSETTE YANG MD Other Provider Active Start: J 2024 Angelo Wiley MD Other Provider Active Start: December 21, 2024 Neelam Almendarez MD Other Provider Active Start: December 21, 2024 Team Status: Active Member Role/Relationship Status Dates Dr. Daija Morton MD Primary Care Provider Active Start: December 22, 2024 Dr. Seth Pritchard DO Emergency Provider Active Start: December 22, 2024 Dr. Roman Patel DO Admit Provider Active Start: December 22, 2024 Dr. Roman Patel DO Other Provider Active Start: December 22, 2024 Ricardo Mccullough MD Other Provider Active Start: 2024 Dr. Aung Peres MD Other Provider Active Start: December 22, 2024 Amy Chun MD Other Provider Active Start : December 22, 2024 Dr. Mackenzie Guzmán DO Other Provider Active St art: December 22, 2024 Dr. Gogo Gill MD Other Provider Active Start: December 22, 2024 Dr. Thomas Lofton MD Other Provider Active Sta rt: December 22, 2024 Dr. Kami Bolton MD Other Provider Active Start : December 22, 2024 Dr. Marco Hutchinson MD Other Provider Active Start: December 22, 2024 Dr. Noman Dumont MD Other Provider Active Start : December 22, 2024 Dr. Ryan Vargas MD Other Provider Active Sta rt: December 22, 2024 Tamika Xioa MD Other Provider Active Start : December 22, 2024 Dr. Hans Rosales MD Other Provider Active St art: December 22, 2024 Dr. Daylin Schmitt MD Other Provider Active Start : December 22, 2024 Dr. René Reno MD Other Provider Active Sta rt: December 22, 2024 Dr. Fanny Rees MD Other Provider Active Start: December 22, 2024 Dr. Huber Ewing MD Other Provider Active St art: December 22, 2024 Dr. Billy Galo MD Other Provider Active Star t: December 22, 2024 Dr. Quentin Rasmussen MD Other Provider Active St art: December 22, 2024 Dr. Maya Talamantes MD Other Provider Active Start: December 22, 2024 Addi Art MD Other Provider Active Start: December 22, 2024 Dr. Lisha Talamantes DO Attending Provider Active S tart: December 22, 2024 Dr. Lisha Talamantes DO Other Provider Active Start : December 22, 2024 Team Status: Active Member Role/Relationship Status Dates Dr. Daija Morton MD Primary Care Provider Active Start: December 23, 2024 Dr. Seth Pritchard DO Emergency Provider Active Start: December 23, 2024 Dr. Roman Patel DO Admit Provider Active Start: December 23, 2024 Dr. Roman Patel DO Other Provider Active Start: December 23, 2024 Ricardo Mccullough MD Other Provider Active Start: 2024 Dr. Aung Peres MD Other Provider Active Start: December 23, 2024 Amy Chun MD Other Provider Active Start : December 23, 2024 Dr. Mackenzie Guzmán DO Other Provider Active St art: December 23, 2024 Dr. Gogo Gill MD Other Provider Active Start: December 23, 2024 Dr. Thomas Lofton MD Other Provider Active Sta rt: December 23, 2024 Dr. Kami Bolton MD Other Provider Active Start : December 23, 2024 Dr. Marco Hutchinson MD Other Provider Active Start: December 23, 2024 Dr. Noman Dumont MD Other Provider Active Start : December 23, 2024 Dr. Ryan Vargas MD Other Provider Active Sta rt: December 23, 2024 Tamika Xiao MD Other Provider Active Start : December 23, 2024 Dr. Hans Rosales MD Other Provider Active St art: December 23, 2024 Dr. Daylin Schmitt MD Other Provider Active Start : December 23, 2024 Dr. René Reno MD Other Provider Active Sta rt: December 23, 2024 Dr. Fanny Rees MD Other Provider Active Start: December 23, 2024 Dr. Huber Ewing MD Other Provider Active St art: December 23, 2024 Dr. Billy Galo MD Other Provider Active Star t: December 23, 2024 Dr. Quentin Rasmussen MD Other Provider Active St art: December 23, 2024 Dr. Maya Talamantes MD Other Provider Active Start: December 23, 2024 Addi Art MD Other Provider Active Start: December 23, 2024 Chrystal Collier MD Other Provider Active Start : December 23, 2024 Luan Mcgraw MS Other Provider Active Start: 2024 Jo Hughes MD Other Provider Active Start: December 23, 2024 JOSETTE YANG MD Other Provider Active Start: 2024 Angelo Wiley MD Other Provider Active Start: December 23, 2024 Neelam Almendarez MD Other Provider Active Start: December 23, 2024 Dr. Shilpa Contreras MD Attending Provider Active Start: December 23, 2024 Dr. Shilpa Contreras MD Other Provider Active St art: December 23, 2024 Dr. Lisha Talamantes DO Other Provider Active Start : December 23, 2024 Team Status: Active Member Role/Relationship Status Dates Dr. Daija Morton MD Primary Care Provider Active Start: December 23, 2024 Dr. Raul Jensen MD Attending Provider Active S tart: December 23, 2024 Team Status: Active Member Role/Relationship Status Dates Dr. Daija Morton MD Primary Care Provider Active Start: December 23, 2024 Dr. Seth Pritchard DO Emergency Provider Active Start: December 23, 2024 Dr. Roman Patel DO Admit Provider Active Start: December 23, 2024 Dr. Roman Patel DO Other Provider Active Start: December 23, 2024 Ricardo Mccullough MD Other Provider Active Start: 2024 Dr. Aung Peres MD Other Provider Active Start: December 23, 2024 Amy Chun MD Other Provider Active Start : December 23, 2024 Dr. Mackenzie Guzmán DO Other Provider Active St art: December 23, 2024 Dr. Gogo Gill MD Other Provider Active Start: December 23, 2024 Dr. Thomas Lofton MD Other Provider Active Sta rt: December 23, 2024 Dr. Kami Bolton MD Other Provider Active Start : December 23, 2024 Dr. Marco Hutchinson MD Other Provider Active Start: December 23, 2024 Dr. Noman Dumont MD Other Provider Active Start : December 23, 2024 Dr. Ryan Vargas MD Other Provider Active Sta rt: December 23, 2024 Tamika Xiao MD Other Provider Active Start : December 23, 2024 Dr. Hans Rosales MD Other Provider Active St art: December 23, 2024 Dr. Daylin Schmitt MD Other Provider Active Start : December 23, 2024 Dr. René Reno MD Other Provider Active Sta rt: December 23, 2024 Dr. Fanny Rees MD Other Provider Active Start: December 23, 2024 Dr. Huber Ewing MD Other Provider Active St art: December 23, 2024 Dr. Billy Galo MD Other Provider Active Star t: December 23, 2024 Dr. Quentin Rasmussen MD Other Provider Active St art: December 23, 2024 Dr. Maya Talamantes MD Other Provider Active Start: December 23, 2024 Addi Art MD Other Provider Active Start: December 23, 2024 Chrystal Collier MD Other Provider Active Start : December 23, 2024 Luan Mcgraw MS Other Provider Active Start: J chance 2024 Jo Hughes MD Other Provider Active Start: December 23, 2024 JOSETTE YANG MD Other Provider Active Start: J chance 2024 Angelo Wiley MD Other Provider Active Start: December 23, 2024 Neelam Almendarez MD Other Provider Active Start: December 23, 2024 Dr. Shilpa Contreras MD Other Provider Active St art: December 23, 2024 Dr. Lisha Talamantes DO Other Provider Active Start : December 23, 2024 Dr. Paulino Henderson DO Attending Provider Active Start: December 23, 2024 Team Status: Active Member Role/Relationship Status Dates Dr. Daija Morton MD Primary Care Provider Active Start: December 24, 2024 Dr. Seth Pritchard DO Emergency Provider Active Start: December 24, 2024 Dr. Roman Patel DO Admit Provider Active Start: December 24, 2024 Dr. Roman Patel DO Other Provider Active Start: December 24, 2024 Ricardo Mccullough MD Other Provider Active Start: 2024 Dr. Aung Peres MD Other Provider Active Start: December 24, 2024 Amy Chun MD Other Provider Active Start : December 24, 2024 Dr. Mackenzie Guzmán DO Other Provider Active St art: December 24, 2024 Dr. Gogo Gill MD Other Provider Active Start: December 24, 2024 Dr. Thomas Lofton MD Other Provider Active Sta rt: December 24, 2024 Dr. Kami Bolton MD Other Provider Active Start : December 24, 2024 Dr. Marco Hutchinson MD Other Provider Active Start: December 24, 2024 Dr. Noman Dumont MD Other Provider Active Start : December 24, 2024 Dr. Ryan Vargas MD Other Provider Active Sta rt: December 24, 2024 Tamika Xiao MD Other Provider Active Start : December 24, 2024 Dr. Hans Rosales MD Other Provider Active St art: December 24, 2024 Dr. Daylin Schmitt MD Other Provider Active Start : December 24, 2024 Dr. René Reno MD Other Provider Active Sta rt: December 24, 2024 Dr. Fanny Rees MD Other Provider Active Start: December 24, 2024 Dr. Huber Ewing MD Other Provider Active St art: December 24, 2024 Dr. Billy Galo MD Other Provider Active Star t: December 24, 2024 Dr. Quentin Rasmussen MD Other Provider Active St art: December 24, 2024 Dr. Maya Talamantes MD Other Provider Active Start: December 24, 2024 Addi Art MD Other Provider Active Start: December 24, 2024 Chrystal Collier MD Other Provider Active Start : December 24, 2024 Luan Mcgraw MS Other Provider Active Start: 2024 Jo Hughes MD Other Provider Active Start: December 24, 2024 JOSETTE YANG MD Other Provider Active Start: J chance2024 Angelo Wiley MD Other Provider Active Start: December 24, 2024 Neelam Almendarez MD Other Provider Active Start: December 24, 2024 Dr. Shilpa Contreras MD Attending Provider Active Start: December 24, 2024 Dr. Shilpa Contreras MD Other Provider Active St art: December 24, 2024 Dr. Lisha Talamantes DO Other Provider Active Start : December 24, 2024 Team Status: Active Member Role/Relationship Status Dates Dr. Daija Morton MD Primary Care Provider Active Start: December 24, 2024 Dr. Seth Pritchard , Emergency Provider Active Start: December 24, 2024 Dr. Roman Patel , DO Admit Provider Active Start: December 24, 2024 Dr. Roman Patel DO Other Provider Active Start: December 24, 2024 Dr. Aung Peres MD Other Provider Active Start: December 24, 2024 Dr. Gogo Gill MD Other Provider Active Start: December 24, 2024 Dr. Ryan Vargas MD Other Provider Active Sta rt: December 24, 2024 Tamika Xiao MD Other Provider Active Start : December 24, 2024 Dr. Daylin Schmitt MD Other Provider Active Start : December 24, 2024 Chrystal Collier MD Other Provider Active Start : December 24, 2024 Luan Mcgraw MS Other Provider Active Start: 2024 Jo Hughes MD Other Provider Active Start: December 24, 2024 JOSETTE YANG MD Other Provider Active Start: 2024 Angelo Wiley MD Other Provider Active Start: December 24, 2024 Neelam Almendarez MD Other Provider Active Start: December 24, 2024 Dr. Shilpa Contreras MD Other Provider Active St art: December 24, 2024 Dr. Lisha Talamantes DO Other Provider Active Start : December 24, 2024 Dr. Paulino Henderson DO Attending Provider Active Start: December 24, 2024 Team Status: Active Member Role/Relationship Status Dates Dr. Daija Morton MD Primary Care Provider Active Start: December 25, 2024 Dr. Seth Pritchard DO Emergency Provider Active Start: December 25, 2024 Dr. Roman Patel , DO Admit Provider Active Start: December 25, 2024 Dr. Roman Patel DO Other Provider Active Start: December 25, 2024 Dr. Aung Peres MD Other Provider Active Start: December 25, 2024 Dr. Gogo Gill MD Other Provider Active Start: December 25, 2024 Dr. Ryan Vargas MD Other Provider Active Sta rt: December 25, 2024 Tamika Xiao MD Other Provider Active Start : December 25, 2024 Dr. Daylin Schmitt MD Other Provider Active Start : December 25, 2024 Chrystal Collier MD Other Provider Active Start : December 25, 2024 Luan Mcgraw MS Other Provider Active Start: 2024 Jo Hughes MD Other Provider Active Start: December 25, 2024 JOSETTE YANG MD Other Provider Active Start: 2024 Angelo Wiley MD Other Provider Active Start: December 25, 2024 Neelam Almendarez MD Other Provider Active Start: December 25, 2024 Dr. Shilpa Contreras MD Attending Provider Active Start: December 25, 2024 Dr. Shilpa Contreras MD Other Provider Active St art: December 25, 2024 Dr. Lisha Talamantes DO Other Provider Active Start : December 25, 2024 Team Status: Active Member Role/Relationship Status Dates Dr. Daija Morton MD Primary Care Provider Active Start: December 26, 2024 Dr. Seth Pritchard DO Emergency Provider Active Start: December 26, 2024 Dr. Roman Patel DO Admit Provider Active Start: December 26, 2024 Dr. Roman Patel DO Other Provider Active Start: December 26, 2024 Dr. Aung Peres MD Other Provider Active Start: December 26, 2024 Dr. Gogo Gill MD Other Provider Active Start: December 26, 2024 Dr. Ryan Vargas MD Other Provider Active Sta rt: December 26, 2024 Tamika Xiao MD Other Provider Active Start : December 26, 2024 Dr. Daylin Schmitt MD Other Provider Active Start : December 26, 2024 Chrystal Collier MD Other Provider Active Start : December 26, 2024 Luan Mcgraw MS Other Provider Active Start: 2024 Jo Hughes MD Other Provider Active Start: December 26, 2024 JOSETTE YANG MD Other Provider Active Start: 5 Angelo Wiley MD Other Provider Active Start: December 26, 2024 Neelam Almendarez MD Other Provider Active Start: December 26, 2024 Dr. Shilpa Contreras MD Attending Provider Active Start: December 26, 2024 Dr. Shilpa Contreras MD Other Provider Active St art: December 26, 2024 Dr. Lisha Talamantes DO Other Provider Active Start : December 26, 2024 Tumblers Supervisor Relationship Specialty Start Date End Date Daija Morton MD [address] [place] [address] PCP - General Internal Medicine 03/21/17 Kaye Ortega MD [address] [place] [address] General Surgery 09/21/21 Ye Coello MD [address] [place] [address] General Surgery 10/13/21 Emilie Jauregui, PA-C [address] [place], [place] [address] Specialty Automatic Serging Machine Operator Pulmonary and Critical Care Medicine 10/13/21 Ryan May MD [address] [place] [address] Specialty Automatic Serging Machine Operator Vascular Surgery 10/13/21 Geronimo Medina DO [address] [place] [address] Machinery Rigger Cardiology 10/13/21 Anjel Braga APRN.BOTTLER HELPER [address] [place], [place] [id number] [facility] Internal Medicine 05/26/24 Tamika Almaguer [employer]SP[employer] Chief Investigator 09/26/17 Goals (unrecognized section and content) Goals [...] BE BASED ON THE PRIMARY CLINICAL RECORDS. [facility]. provides no warranty or guarantee of the accuracy or completeness of information in this document.
--- NOTE | 2025-01-03 07:07 | CT_ITS ---
PROCEDURE: BRAIN/HEAD WITHOUT CONTRAST 01/03/2025 REASON FOR EXAM: HEAD INJURY TECHNIQUE: BRAIN/HEAD WITHOUT CONTRAST Coronal and Sagittal reconstruction series were provided. One or more dose reduction techniques were used (e.g., Automated exposure control, adjustment of the mA and/or kV according to patient size, use of iterative reconstruction technique. RADIATION DOSE SUMMARY: CTDlvol: 44.99 mGy DLP: 846.73 mGycm COMPARISON: Prior study dated December 17, 2004. FINDINGS: Brain: Low density in the periventricular white matter suggests mild chronic small vessel ischemic changes. Focal encephalomalacia in the left posterior frontal parietal lobes in keeping with subacute infarction. Old lacunar infarct in the right thalamus. CSF Spaces: Moderate generalized cerebral atrophy Sinuses/Mastoids: Mild degree of mucosal thickening of the lateral wall of the right maxillary sinus and left at point sinus. Bones: No fracture. CT/Brain/Head without Contrast IMPRESSION: CHRONIC CHANGES. NO ACUTE FINDINGS. Reading Location: [facility]
--- NOTE | 2025-01-03 07:14 | RAD_ITS ---
PROCEDURE: ABDOMEN SINGLE VIEW (PORTABLE) 01/03/2025 REASON FOR EXAM: GASTROSTOMY REPLACEMENT TECHNIQUE: ABDOMEN SINGLE VIEW (PORTABLE) COMPARISON: None FINDINGS: A PEG tube is seen within the stomach. Gastrografin was injected. The tip of the PEG tube is in the stomach. RAD/Abdomen Single View (Portable) IMPRESSION: Tip of the PEG tube is within the stomach. Gastrografin was injected into the indwelling PEG tube. Reading Location: [facility]
[2025-01-03 08:17] VITALS: BP 145/64; PULSE 56; RESP 16; TEMP 36.4; O2SAT 93
--- NOTE | 2025-01-03 09:19 | PCA ---
THIS MOSS BLEACHER CALLED FOR A RIDE BACK FOR THE PT GOING TO [facility]. PHYS[facility]ANS GAVE AN ETA OF 1215. THEN THIS MOSS BLEACHER CALLED TO [employer] @ 0900 ASKING IF THEY WOULD HAVE AN AVAILABILITY PICKING UP THEIR PT INSTEAD OF [facility]YSIC[facility]. THEY NEEDED TO CALL ME BACK.
--- NOTE | 2025-01-03 09:25 | PCA ---
I CALLED FOR A RIDE AT 0815 THROUGH [facility]. THEY GAVE AN ETA OF 1215. THEN I CALLED [facility] TO SEE IF THEY HAD ANY ONE AVAILABLE TO DISPLAY MAKER PT. THEY NEEDED TO CALL OUT AND ASK, THEN THEY WOULD CALL ME BACK. AT 0920 I CALLED [facility]YS[facility]ANS TO OUTSOURCE THE RIDE. 2 MINUTES LATER THEY CALLED ME BACK SAYING THE EARLIEST THEY COULD DO WAS 1100. I AGREED, SO NOW ETA IS 1100. [facility] CALLED BACK AT 0923 SAYING THEY WERE UNABLE TO FIND ANYONE TO COME AND DISPLAY [facility]KER PT. I INFORMED THEM OF THE NEW ETA.
[2025-01-03 10:00] VITALS: BP 174/73; PULSE 53; RESP 16; O2SAT 99
== END 2025-01-03 11:31 | disposition home or self-care (01) ==
PROVIDERS: Emergency Provider Emergency Medicine; PCP Internal Medicine; Visit Provider Emergency Medicine
DX: K94.23 Gastrostomy malfunction (principal); I69.351 Hemiplegia and hemiparesis following cerebral infarction affecting right dominant side; J44.9 Chronic obstructive pulmonary disease, unspecified; I48.91 Unspecified atrial fibrillation; I10 Essential (primary) hypertension; W06.XXXA Fall from bed, initial encounter; I69.320 Aphasia following cerebral infarction; Y92.129 Unspecified place in nursing home as the place of occurrence of the external cause; I73.9 Peripheral vascular disease, unspecified; N40.0 Benign prostatic hyperplasia without lower urinary tract symptoms; F41.9 Anxiety disorder, unspecified; F32.A Depression, unspecified; E78.00 Pure hypercholesterolemia, unspecified; D68.62 Lupus anticoagulant syndrome; I25.10 Atherosclerotic heart disease of native coronary artery without angina pectoris; M81.0 Age-related osteoporosis without current pathological fracture; G47.33 Obstructive sleep apnea (adult) (pediatric); F17.210 Nicotine dependence, cigarettes, uncomplicated; Z66 Do not resuscitate; Z79.01 Long term (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 of anticoagulants; Z79.899 Other long term (current) drug therapy
CPT/HCPCS: 99285; 70450; 72125; 72170; 74018

== ENCOUNTER 2025-01-05 09:37 | Inpatient (IN) | payer MEDICARE, MEDICAID, SELFPAY ==
[2025-01-05] VITALS (23 sets, daily range): BP systolic 131–193; BP diastolic 68–127; PULSE 57–97; RESP 16–34; TEMP 35.9–36.7; O2SAT 78–96; BMI 22.5
--- NOTE | 2025-01-05 09:59 | RAD_ITS ---
PROCEDURE: CHEST 1 VIEW (PORTABLE) 01/05/2025 REASON FOR EXAM: TACHYPNEA, RHONCHI THROUGHOUT TECHNIQUE: Frontal view of the chest. COMPARISON: Chest radiograph 12/17/2024. FINDINGS: Hardware: None. Heart: The heart size is normal. Lungs: Findings of mild emphysema with scattered areas of scarring. No focal consolidation, pleural effusion or pneumothorax. Bones: Degenerative changes are identified within the thoracic spine. RAD/Chest 1 View (Portable) IMPRESSION: COPD. No acute findings. Reading Location: [id number]
[2025-01-05 10:14] LABS: Hematocrit 39.6 % (40-54); Hemoglobin 12.6 g/dL (13.0-16.5); Immature Granulocytes Count 0.050 X10^3/uL (0.0-0.0); Mean Corp Hgb Conc 31.8 g/dL (32-36); Mean Corpuscular Volume 87.4 fL (80-94); Mean Platelet Vol. 9.8 fl (6.2-12.0); NRBC Flagged by Analyzer 0 % (0-5); Platelet Count 462 K/mm3 (150-450); RBC Distribution Width CV 15.1 % (11.6-14.6); RBC Distribution Width SD 48.0 fl (35.1-43.9); Red Blood Count 4.53 M/mm3 (4.6-6.2); White Blood Count 10.2 K/mm3 (4.4-11.0)
--- NOTE | 2025-01-05 10:16 | EX.ED.DYSGE1 ---
HPI History of Present Illness Chief Complaint: Hypertension Detail of Chief Complaint: Patient repeats what I ask him. Informant: EMS and SNF (Concerned gastrostomy tube is displaced) Limited: other (Recent stroke with aphasia.) Onset/Context/Timing Onset: Today (According to EMS.) Context: - (Unable to determine/unknown) Timing: - (Unable to determine/unknown) Quality: Unknown Location: Reportedly GI Current Severity: Unable to determine Maximum Severity: Unable to determine Worsened by: Unknown Relieved by: Apparently nothing Associated Symptoms Associated Symptoms: Unknown Limited history Narrative Narrative: Patient is a 74-year-old male. He was admitted for acute CVA with severe dysarthria, right-sided facial droop. He has history of hypertension, chronic kidney disease, chronic normocytic anemia, PAF, hyperlipidemia, BPH with obstructive pathology, GERD, seizure disorder, tobacco abuse, obstructive sleep apnea with noncompliance, peripheral arterial disease, former alcoholic and is apparently full go. He per Dr. Shilpa Contreras's documentation wants his ex- to make his medical decisions. Reportedly patient was sent in because of malfunctioning gastrostomy tube. Logistics Clerk states he was sent in for hypertension. Apparently their blood pressure readings were elevated and reason the chief complaint is hypertension. Per the [facility] report to nursing staff he was sent in because of gastrostomy tube problems. Reading summary of care patient with history of COPD/asthma with chronic hypoxemic respiratory failure on 2 L by nasal cannula. There was no mention of aspiration or risks of aspiration. Prior similar symptoms: No Recent Illness/Hospitalization: Yes [facility] Medical History Acute CVA (cerebrovascular accident) Aphasia Hypertension Weakness Debility Failure to thrive Compression fx, lumbar spine Hypertension Falls Hypertension Closed fracture of right superior pubic ramus Multiple falls Compression fracture of thoracic vertebra History of atrial fibrillation Iron deficiency anemia Chronic respiratory failure with hypoxia Osteoporosis Lumbar compression fracture Compression fracture Obstructive sleep apnea Hyperlipidemia Asthma Peripheral arterial occlusive disease Seizure disorder Chronic obstructive pulmonary disease Coronary artery disease Lupus anticoagulant disorder BPH (benign prostatic hyperplasia) Ulcerative colitis Peripheral vascular disease Anxiety COPD (chronic obstructive pulmonary disease) with emphysema Closed fracture of right inferior pubic ramus Acute UTI COPD (chronic obstructive pulmonary disease) UTI (urinary tract infection) Depression Diabetes Kidney stones Chronic pain Pancreatitis On home oxygen therapy Irregular heart beat Atrial fibrillation Stroke/cerebrovascular accident Smoker Falls frequently Seizures Sleep apnea COPD (chronic obstructive pulmonary disease) Asthma High cholesterol Tobacco abuse Home Medications ?Medication ?Instructions ?Recorded ?Last Taken ?Type atorvastatin 40 mg tablet 40 mg PO QHS Cholesterol 09/23/15 12/12/24 History alendronate 70 mg tablet 70 mg PO QWEEK OSTEOPROSIS #1 TAB 11/30/21 12/09/24 Rx acetaminophen 325 mg tablet 650 mg (2 x 325 mg) feeding tube 12/24/24 Unknown Rx Q6H PRN PRN Pain 1-10 Or Fever>100.7 #0 tabs albuterol sulfate 2.5 mg/3 mL 2.5 mg (3 mL) inhalation Q4H PRN 12/24/24 Unknown Rx (0.083 %) solution for nebulization DYSPNEA/WHEEZING/SOB #0 mL amlodipine 10 mg tablet 10 mg G-tube DAILY.RT #0 tabs 12/24/24 Unknown Rx carbamazepine 100 mg/5 mL oral 200 mg (10 mL) G-tube 4X/DAY #0 mL 12/24/24 Unknown Rx suspension cholecalciferol (vitamin D3) 50 50 mcg feeding tube DAILY 12/24/24 01/05/25 Rx mcg (2,000 unit) tablet SUPPLEMENT 30 days #30 tabs clonidine 0.2 mg/24 hr weekly 0.2 mg transdermal Q7D #0 ea 12/24/24 Unknown Rx transdermal patch ergocalciferol (vitamin D2) 1,250 1,250 mcg feeding tube Q7D 12/24/24 12/13/24 08:58 Rx mcg (50,000 unit) capsule (Vitamin SUPPLEMENT #0 caps D2) finasteride 5 mg tablet 5 mg feeding tube DAILY prostate 12/24/24 12/13/24 08:58 Rx 30 days #30 tabs gabapentin 100 mg capsule 100 mg feeding tube DAILY PAIN 30 12/24/24 12/13/24 08:58 Rx days #30 caps ipratropium 0.5 mg-albuterol 3 mg 3 ml inhalation .q6hwa #0 mL 12/24/24 Unknown Rx (2.5 mg base)/3 mL nebulization soln lactose-reduced food with fiber 55 ml feeding tube .18hours #5,688 12/24/24 Unknown Rx 0.06 gram-1.5 kcal/mL oral liquid mL (Jevity 1.5 Alex) losartan 100 mg tablet 100 mg feeding tube DAILY Blood 12/24/24 12/13/24 08:58 Rx pressure 30 days #30 tabs melatonin 3 mg tablet 3 mg G-tube QHS PRN PRN Insomnia 12/24/24 Unknown Rx #0 tabs mirtazapine 15 mg tablet 15 mg feeding tube QHS anti 12/24/24 12/12/24 20:59 Rx depressant 30 days #30 tabs prednisone 20 mg tablet 40 mg (2 x 20 mg) G-tube BREAKFAST 12/24/24 Unknown Rx 5 days #10 tabs sertraline 100 mg tablet 100 mg feeding tube DAILY 12/24/24 Unknown Rx DEPRESSION 30 days #30 tabs thiamine HCl (vitamin B1) 100 mg 100 mg G-tube BREAKFAST #0 tabs 12/24/24 Unknown Rx tablet apixaban 5 mg tablet (Eliquis) 5 mg PO BID 01/03/25 Unknown History atorvastatin 40 mg tablet (Lipitor) 40 mg PO DAILY 01/03/25 Unknown History hydralazine 25 mg tablet 50 mg G-tube 3XD 01/03/25 Unknown History metoprolol tartrate 25 mg tablet 50 mg feeding tube BID Blood 01/03/25 Unknown History pressure pantoprazole 40 mg granules 40 mg PO DAILY 01/03/25 Unknown History delayed-release for susp in packet (Protonix) Allergy/AdvReac Type Severity Reaction Status Date / Time No Known Allergies Allergy Verified 01/03/25 06:32 Family History Mother Heart disease CVA (cerebral vascular accident) Hypertension Father Heart disease CVA (cerebral vascular accident) Hypertension Surgical History S/P arterial stent History of appendectomy Social History household members: family 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 Smoking Status: Former smoker alcohol intake: former details: Former alcoholic quit several years ago substance use type: does not use caffeine: Yes Type: coffee Number of servings: 3 ROS ROS ED Review of Systems ROS Unobtainable: due to mental status EXAM Physical Exam Const Vital Signs: 01/05/25 09:38 01/05/25 10:37 01/05/25 11:00 Temperature 96.6 F L Temperature Source Temporal Pulse Rate 69 58 L Respiratory Rate 23 H 16 Blood Pressure 183/75 H 164/127 H 180/75 H Blood Pressure Mean 111 139 110 Pulse Ox 91 92 Oxygen Delivery Method Nasal Cannula Nasal Cannula Oxygen Flow Rate (L/min) 2 2 Fraction of Inspired Oxygen (FIO2) 01/05/25 11:27 01/05/25 11:34 01/05/25 11:40 Temperature Temperature Source Pulse Rate 58 L 57 L Respiratory Rate 20 H 19 H Blood Pressure 193/75 H Blood Pressure Mean 114 Pulse Ox 78 91 Oxygen Delivery Method Nasal Cannula Simple Mask Oxygen Flow Rate (L/min) 5 7 Fraction of Inspired Oxygen (FIO2) 01/05/25 11:47 01/05/25 12:24 01/05/25 13:27 Temperature Temperature Source Pulse Rate 78 79 97 Respiratory Rate 20 H 22 H 34 H Blood Pressure 182/68 H Blood Pressure Mean 106 Pulse Ox 93 93 Oxygen Delivery Method Nasal Cannula Oxygen Flow Rate (L/min) 5 Fraction of Inspired Oxygen (FIO2) 01/05/25 13:33 Temperature Temperature Source Pulse Rate Respiratory Rate Blood Pressure Blood Pressure Mean Pulse Ox 95 Oxygen Delivery Method Venturi Mask Oxygen Flow Rate (L/min) 10 Fraction of Inspired Oxygen (FIO2) 35 Positive well developed and unkempt General Appearance ED: unkempt, well developed and pallor; Negative for cyanotic, diaphoretic or NAD HEENT Reports dry mucous membranes HEENT Narrative: Head is atraumatic and normocephalic. Ears are normal. Uvula midline. Posterior pharynx unremarkable. Reviewed Dr. Gato Patel's note and patient is blind in his right eye and this finding is not new. Mouth ED: Yes dry mucous membranes Mouth: dry mucous membranes Eyes EOMs intact bilaterally; Negative for PERRL Eyes Narrative: Right pupil is much larger than left. General Eye ED: Negative for pale conjunctiva or scleral icterus Neck no lymphadenopathy, supple and no JVD Chest Wall inspection of chest normal and palpation of chest normal Resp No normal respiratory effort and No clear to auscultation bilaterally Resp Narrative: There is Cardio regular rate, regular rhythm, S1 normal heart sound, S2 normal heart sound and no murmurs GI normal to inspection, nondistended, normoactive bowel sounds, non-tender, non-distended and no masses; Negative for hepatosplenomegaly GI Narrative: Gastrostomy tube is functional. Palpation: soft Extremity General Extremety ED: Yes edema General Extremity: edema Neuro No oriented x3 and No CN's II-XII intact bilaterally Sensorium / Orientation: Negative for alert Psych Psych Narrative: Patient repeats what I ask of him. Appearance: unkempt Skin no rashes or lesions noted and no wounds General Skin Exam: pallor; Negative for jaundice MDM MDM MDM Narrative Medical decision making narrative: Patient's gastrostomy tube is functional. Water is instilled without difficulty. The gastrostomy tube in my opinion is proper position and is functioning. There is no leakage around the tube. Because she has tachypnea rhonchi will obtain chest x-ray to assess for pneumonia and blood work to assess H&H renal function etc. History and physical is limited due to his abnormal level of consciousness. Since nurses state they cannot draw back any gastric fluid a KUB with contrast was obtained. The KUB reveals proper position. My opinion this is a positional issue and not due to mouth placed gastrostomy tube. Or a displaced gastrostomy tube. Lab Data Attestation: I reviewed the patient's lab results. Lab results narrative: CBC reveals anemia with normal indices. Labs: Laboratory Results - last 24 hr 01/05/25 09:45 WBC 10.2 RBC 4.53 L Hgb 12.6 L Hct 39.6 L MCV 87.4 MCH 27.8 MCHC 31.8 L RDW Std Deviation 48.0 H RDW Coeff of Aly 15.1 H Plt Count 462 H MPV 9.8 Immature Gran % (Auto) 0.500 Neut % (Auto) 76.7 H Lymph % (Auto) 14.2 L [place] % (Auto) 7.0 Eos % (Auto) 1.2 Baso % (Auto) 0.4 Absolute Neuts (auto) 7.8 H Absolute Lymphs (auto) 1.45 Nucleated RBC % 0 Sodium 135 Potassium 4.3 Chloride 93 L Carbon Dioxide 28.4 Anion Gap 14 BUN 24 H Creatinine 1.25 H Estim Creat Clear Calc 54.46 Est GFR (MDRD) Non-Af 60 BUN/Creatinine Ratio 18.8 Glucose 123 H Lactic Acid 1.1 Calcium 10.3 Total Bilirubin 0.25 AST 32 ALT 33 Alkaline Phosphatase 83 Total Protein 7.8 Albumin 4.6 Globulin 3.2 Albumin/Globulin Ratio 1.4 ABG Data ABG results: ABG 01/05/25 13:14 Specimen Type ART Sample Site L Radial pH 7.45 Bicarbonate Actual 33.0 H Total CO2 35 Base Excess 9 H O2 Saturation 88 L O2 % 6.0 ABG pCO2 47.9 H ABG pO2 52 L Dann Test Positive O2 Delivery Device Cannula Vent Mode Not entered Radiography Chest X-Ray - ED: 1 View, Read by ED Physician (No acute process. Independent reviewed interpreted by me at 1017. Cardiac silhouette size normal. Lung parenchyma is normal. There is no infiltrate, effusion, pneumothorax or pneumoperitoneum. Hilum is unremarkable. Osseous structures reveal no acute process.) and - (Single view KUB reveals contrast in the stomach. This would indicate that the gastrostomy tube is in proper position. There is an implant reviewed interpreted by me at 1323.) Diagnostic Testing: Clinical Impression(s) from Imaging Studies Chest X-Ray 01/05/25 09:59 IMPRESSION: COPD. No acute findings. Reading Location: [facility] KUB X-Ray 01/05/25 13:02 IMPRESSION: A PEG tube tip is projected in the region of the stomach. Contrast material is identified within the stomach. There is no extravasation of the contrast. Reading Location: [facility] Radiology report was reviewed. Since there is no evidence of pneumonia and he is tachypneic with rhonchi and history of COPD he was treated with DuoNeb and albuterol. Management Discussion w/another healthcare provider: Hospitalist (Case discussed with Dr. Fitzgerald the hospitalist. Full admit PCU for respiratory failure due to aspiration) Discharge Plan Triage Chief Complaint: Hypertension ED Provider: Fco Monroy Dx/Rx/DC Orders Clinical Impression: Acute and chronic respiratory failure with hypoxia, Current use of retirement anticoagulation, CVA (cerebral vascular accident), COPD (chronic obstructive pulmonary disease), Hypertension, Aspiration into respiratory tract, Bronchospasm, acute Prescriptions: No Action atorvastatin 40 MG tablet 40 mg PO QHS Patient Comments: CHOLESTEROL alendronate 70 mg tablet 70 mg PO QWEEK Qty: 1 0RF acetaminophen 325 mg Tablet 650 mg feeding tube Q6H PRN PRN (Reason: Pain 1-10 Or Fever>100.7) Qty: 0 0RF ipratropium-albuterol 0.5 mg-3 mg(2.5 mg base)/3 mL Solution For Nebulization 3 ml inhalation .q6hwa Qty: 0 0RF albuterol sulfate 2.5 mg /3 mL (0.083 %) Solution For Nebulization 2.5 mg inhalation Q4H PRN (Reason: DYSPNEA/WHEEZING/SOB) Qty: 0 0RF clonidine 0.2 mg/24 hr Patch Weekly 0.2 mg transdermal Q7D Qty: 0 0RF amlodipine 10 mg Tablet 10 mg G-tube DAILY.RT Qty: 0 0RF carbamazepine 100 mg/5 mL Suspension 200 mg G-tube 4X/DAY Qty: 0 0RF melatonin 3 mg Tablet 3 mg G-tube QHS PRN PRN (Reason: Insomnia) Qty: 0 0RF prednisone 20 mg Tablet 40 mg G-tube BREAKFAST 5 Days Qty: 10 0RF thiamine HCl (vitamin B1) 100 mg Tablet 100 mg G-tube BREAKFAST Qty: 0 0RF Jevity 1.5 Alex 0.06 gram-1.5 kcal/mL liquid 55 ml feeding tube .18hours Qty: 5688 0RF Rx Instructions: Goal TF: 55 ml/hr to run for 18 hours/day. Upon SNF transition goal is to achieve this and would plan to increase by 10 ml/hr every 8-12 hours until achieve the goal of 55 ml/hr for the 18 hour run daily. Flush 165 ml free water every 4 hours. sertraline 100 mg tablet 100 mg feeding tube DAILY 30 Days Qty: 30 0RF mirtazapine 15 MG tablet 15 mg feeding tube QHS 30 Days Qty: 30 0RF gabapentin 100 mg capsule 100 mg feeding tube DAILY 30 Days Qty: 30 0RF ergocalciferol (vitamin D2) [Vitamin D2] 1,250 mcg (50,000 unit) Capsule 1,250 mcg feeding tube Q7D Qty: 0 0RF losartan 100 mg tablet 100 mg feeding tube DAILY 30 Days Qty: 30 0RF finasteride 5 MG tablet 5 mg feeding tube DAILY 30 Days Qty: 30 0RF Patient Comments: prostate cholecalciferol (vitamin D3) 50 mcg (2,000 unit) tablet 50 mcg feeding tube DAILY 30 Days Qty: 30 0RF atorvastatin [Lipitor] 40 mg tablet 40 mg PO DAILY Eliquis 5 mg tablet 5 mg PO BID pantoprazole [Protonix] [address] for susp in packet 40 mg PO DAILY hydralazine 25 mg Tablet 50 mg G-tube 3XD metoprolol tartrate 25 mg tablet 50 mg feeding tube BID Primary Care Provider: Lorraine Mena Referrals: Lorraine Mena MD [Primary Care Provider] - Print Language: Kazakh Disposition Disposition: Assisted Living
--- OUTSIDE RECORDS SUMMARY | 2025-01-05 10:24 | XMS RPT_ITS | CCD ---
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 respiratory system] 02-05-2022 Episodic Other lower respiratory disease (18 sources) Dyspnea; Translations: [Dyspnea, unspecified] 07-30-2023 Episodic [...] elsewhere classified] Chronic Other nervous system disorders (15 sources) Unable to walk; Translations: [Difficulty in walking, not elsewhere classified] 03-30-2023 Chronic Other nervous system disorders (10 sources) Difficulty in walking, not elsewhere classified; Translations: [Difficulty in walking] 03-30-2023 Chronic Other nervous system disorders (10 sources) Metabolic encephalopathy; Translations: [Metabolic encephalopathy] 07-30-2023 Chronic Other nervous system disorders (2 sources) Metabolic encephalopathy; Translations: [Metabolic encephalopathy] 07-30-2023 Chronic Other nervous system disorders (6 sources) Aphasia; Translations: [Aphasia] 12-17-2024 Chronic Other nervous system disorders (2 sources) Aphasia; Translations: [Aphasia] Onset: Chronic Other nutritional; endocrine; and metabolic disorders (20 sources) H/O: diabetes mellitus; Translations: [Personal history of other endocrine, nutritional and metabolic disease] 08-20-2021 Episodic Other nutritional; endocrine; and metabolic disorders (15 sources) Failure to thrive 08-08-2020 Episodic Other [...] of the lumbar spine Sprains and strains (16 sources) Strain of neck muscle; Translations: [Strain of muscle, fascia and tendon at neck level, initial encounter] 02-18-2023 Episodic Substance-related disorders (20 sources) Tobacco dependence in remission; Translations: [Nicotine dependence, unspecified, in remission] Onset: 5 Resolved: 3 04-27-2020 Chronic Superficial injury; contusion (20 sources) Contusion of flank; Translations: [Contusion of abdominal wall, initial encounter] 07-23-2020 Episodic Syncope (10 sources) Syncope; Translations: [Syncope and collapse] Onset: [...] Desk- Please refer to our FAQ page (http://[email or web address]-imo.co m/faq/vocabportal_fa q.aspx) or contact O Customer Support at [email or web address] 03-20-2013 Results Test Name Value Interpretation Reference Range Facility Anion gap in Serum or Plasma Ordered By: Lorraine Mena on 12-31-2024 Anion gap [Moles/Vol] 12 mmol/L 5-15 [facility] BUN/creatinine ratioOrdered By: Lorraine Mena on 12-31-2024 Urea nitrogen/Creatinine [Mass ratio] 21.5 mg/mg High 10-20 [facility] Bilirubin, totalOrdered By: Lorraine Mena on 12-31-2024 Bilirubin [Mass/Vol] 0.17 mg/dL 0.00-1.30 [facility] Carbon dioxide, total [Moles /volume] in Central venous bloodOrdered By: Lorraine Mena on 12-31-2024 CO2 [Moles/Vol] 30.5 mmol/L 21.0-32.0 [facility] Chloride assayOrdered By: Ledy Mena on 12-31-2024 Chloride [Moles/Vol] 95 mmol/L Low 98-108 [facility] Glomerular filtration rate ( GFR) estimation/1.73 sq m using serum, plasma, or whole bOrdered By: Lorraine Mena on 12-31-2024 GFR/1.73 sq M.predicted among non-blacks MDRD (S/P/Bld) [Vol rate/Area] 64 mL/min/{1.73_m2} >60 [facility] No Panel InformationOrdered By: Lorraine Mena on 12-31-2024 34 U/L <38 [facility] Potassium measurement (mass/ volume)Ordered By: Lorraine Mena on 12-31-2024 Potassium (Unsp spec) [Mass/Vol] 3.9 mmol/L 3.3-5.1 [facility] Serum creatinine measurement (mass/volume)Ordered By: Lorraine Mena on 12-31-2024 Creatinine [Mass/Vol] 1.19 mg/dL 0.70-1.20 [facility] Serum globulin measurementOr dered By: Lorraine Mena on 12-31-2024 Globulin (S) [Mass/Vol] 2.9 g/dL 2.2-4.2 [facility] Serum glucose measurement (m ass/volume)Ordered By: Lorraine Mena on 12-31-2024 Glucose [Mass/Vol] 110 mg/dL High 70-99 [facility] Serum or plasma alanine saul otransferase (ALT) measurementOrdered By: Roselynlisathao Christinebandaremi on 12-31-2024 ALT [Catalytic activity/Vol] 35 U/L <47 [facility] Serum or plasma albumin luis urement (mass/volume)Ordered By: Lorraine Christinebandaremi on 12-31-2024 Albumin [Mass/Vol] 3.9 g/dL 3.4-4.8 [facility] Serum or plasma albumin/glob ulin mass ratioOrdered By: Roselynlisathao Christinebandaremi on 12-31-2024 Albumin/Globulin [Mass ratio] 1.3 {ratio} 0.9-2.4 [facility] Serum or plasma alkaline kathleen sphatase measurementOrdered By: Lorraine Mena on 12-31-2024 ALP [Catalytic activity/Vol] 63 U/L 40-129 [facility] Serum or plasma calcium luis urement (mass/volume)Ordered By: Roselynlisathao Christinebandaremi on 12-31-2024 Calcium [Mass/Vol] 10.1 mg/dL 7.6-11.0 [facility] Serum or plasma urea nitroge n measurement (mass/volume)Ordered By: Lorraine Christinebandaremi on 12-31-2024 Urea nitrogen [Mass/Vol] 26 mg/dL High 4-19 [facility] Sodium levelOrdered By: Roselyn gauthierdaphney Trina on 12-31-2024 Sodium [Moles/Vol] 138 mmol/L 133-145 [facility] Total proteinOrdered By: Davidemi sidhu Trina on 12-31-2024 Protein [Mass/Vol] 6.9 g/dL 5.9-8.4 [facility] Absolute lymphocyte countOrd ered By: Lorraine Mena on 12-30-2024 Lymphocytes Auto (Unsp spec) [#/Vol] 1.08 10*3/uL 0.83-4.51 [facility] Anion gap in Serum or Plasma Ordered By: Lorraine Mena on 12-30-2024 Anion gap [Moles/Vol] 17 mmol/L High 5-15 [facility] Automated lymphocyte count a s percentage of total leukocytesOrdered By: Lorraine Mena on 12-30-2024 Lymphocytes/100 WBC Auto (Unsp spec) 14.4 % Low 19-41 [facility] BUN/creatinine ratioOrdered By: Lorraine Mena on 12-30-2024 Urea nitrogen/Creatinine [Mass ratio] 20.3 mg/mg High 10-20 [facility] Basophil percentageOrdered B y: Lorraine Mena on 12-30-2024 Basophils/100 WBC (Bld) 0.7 % 0-1 [facility] Bilirubin, totalOrdered By: Lorraine Mena on 12-30-2024 Bilirubin [Mass/Vol] 0.18 mg/dL 0.00-1.30 [facility] Carbon dioxide, total [Moles /volume] in Central venous bloodOrdered By: Lorraine Mena on 12-30-2024 CO2 [Moles/Vol] 28.7 mmol/L 21.0-32.0 [facility] Chloride assayOrdered By: Ledy roethao Mena on 12-30-2024 Chloride [Moles/Vol] 94 mmol/L Low 98-108 [facility] Eosinophil percentageOrdered By: Lorraine Christinebandaremi on 12-30-2024 Eosinophils/100 WBC (Bld) 0.8 % 0-5 [facility] Erythrocyte distribution wid th ratioOrdered By: Lorraine Mena on 12-30-2024 Erythrocyte distribution width (RBC) [Ratio] 15.0 % High 11.6-14.6 [facility] Erythrocyte distribution wid th standard deviationOrdered By: Lorraine Mena on 12-30-2024 Erythrocyte distribution width (RBC) [Ratio] 47.7 fl High 35.1-43.9 [facility] Glomerular filtration rate ( GFR) estimation/1.73 sq m using serum, plasma, or whole bOrdered By: Lorraine Mena on 12-30-2024 GFR/1.73 sq M.predicted among non-blacks MDRD (S/P/Bld) [Vol rate/Area] 64 mL/min/{1.73_m2} >60 [facility] Hematocrit Auto (Bld) [Volum e fraction]Ordered By: Lorraine Mena on 12-30-2024 Hematocrit (Bld) [Volume fraction] 36.1 % Low 40-54 [facility] Hemoglobin measurementOrdere d By: Lorraine Mena on 12-30-2024 Hemoglobin (Bld) [Mass/Vol] 11.3 g/dL Low 13.0-16.5 [facility] Immature granulocytes/100 WB C Auto (Bld)Ordered By: Lorraine Mena on 12-30-2024 Immature granulocytes/100 WBC (Bld) 0.300 % 0.0-0.9 [facility] MCV (mean corpuscular volume ) determinationOrdered By: Lorraine Mena on 12-30-2024 MCV (RBC) [Entitic vol] 88.3 fL 80-94 [facility] Mean corpuscular hemoglobin (MCH) determinationOrdered By: Lorraine Mena on 12-30-2024 MCH (RBC) [Entitic mass] 27.6 pg 27.0-32.0 [facility] Monocyte percentageOrdered B y: Lorraine Mena on 12-30-2024 Monocytes/100 WBC (Bld) 9.6 % 0-10 [facility] Neutrophil percentageOrdered By: Lorraine Mena on 12-30-2024 Neutrophils/100 WBC (Bld) 74.2 % High 47-70 [facility] No Panel InformationOrdered By: Lorraine Mena on 12-30-2024 34 U/L <38 [facility] Platelet countOrdered By: Ledy Mena on 12-30-2024 Platelets (Bld) [#/Vol] 353 10*3/uL 150-450 [facility] Potassium measurement (mass/ volume)Ordered By: Lorraine Mena on 12-30-2024 Potassium (Unsp spec) [Mass/Vol] 4.2 mmol/L 3.3-5.1 [facility] RBC Auto (Bld) [#/Vol]Ordere d By: Lorraine Mena on 12-30-2024 RBC (Bld) [#/Vol] 4.09 10*6/uL Low 4.6-6.2 [facility] Serum creatinine measurement (mass/volume)Ordered By: Lorraine Mena on 12-30-2024 Creatinine [Mass/Vol] 1.19 mg/dL 0.70-1.20 [facility] Serum globulin measurementOr dered By: Lorraine Mena on 12-30-2024 Globulin (S) [Mass/Vol] 2.2 g/dL 2.2-4.2 [facility] Serum glucose measurement (m ass/volume)Ordered By: Lorraine Mena on 12-30-2024 Glucose [Mass/Vol] 105 mg/dL High 70-99 [facility] Serum or plasma alanine saul otransferase (ALT) measurementOrdered By: Lorraine Mena on 12-30-2024 ALT [Catalytic activity/Vol] 34 U/L <47 [facility] Serum or plasma albumin luis urement (mass/volume)Ordered By: Lorraine Mena on 12-30-2024 Albumin [Mass/Vol] 4.0 g/dL 3.4-4.8 [facility] Serum or plasma albumin/glob ulin mass ratioOrdered By: Lorraine Mena 12-30-2024 Albumin/Globulin [Mass ratio] 1.8 {ratio} 0.9-2.4 [facility] Serum or plasma alkaline kathleen sphatase measurementOrdered By: Lorraine Mena 12-30-2024 ALP [Catalytic activity/Vol] 62 U/L 40-129 [facility] Serum or plasma calcium luis urement (mass/volume)Ordered By: Lorraine Mena on 12-30-2024 Calcium [Mass/Vol] 9.8 mg/dL 7.6-11.0 [facility] Serum or plasma carbamazepin e level (mass/volume)Ordered By: Lorraine Mena on 12-30-2024 carBAMazepine [Mass/Vol] 10.8 ug/mL 4.0-12.0 [facility] Serum or plasma urea nitroge n measurement (mass/volume)Ordered By: Lorraine Mena 12-30-2024 Urea nitrogen [Mass/Vol] 24 mg/dL High 4-19 [facility] Sodium levelOrdered By: Roselyn Mena on 12-30-2024 Sodium [Moles/Vol] 140 mmol/L 133-145 [facility] Total proteinOrdered By: David Mena on 12-30-2024 Protein [Mass/Vol] 6.3 g/dL 5.9-8.4 [facility] White blood cell (WBC) count Ordered By: Lorraine Mena on 12-30-2024 WBC (Bld) [#/Vol] 7.5 10*3/uL 4.4-11.0 [facility] Absolute lymphocyte countOrd ered By: Shilpa Ben on 12-26-2024 Lymphocytes Auto (Unsp spec) [#/Vol] 0.66 10*3/uL Low 0.83-4.51 [facility] Anion gap in Serum or Plasma Ordered By: Shilpa Ben on 12-26-2024 Anion gap [Moles/Vol] 12 mmol/L 5-15 [facility] Automated lymphocyte count a s percentage of total leukocytesOrdered By: Shilpa Ben on 12-26-2024 Lymphocytes/100 WBC Auto (Unsp spec) 6.5 % Low 19-41 [facility] BUN/creatinine ratioOrdered By: Shilpa Ben on 12-26-2024 Urea nitrogen/Creatinine [Mass ratio] 14.4 mg/mg 10-20 [facility] Basophil percentageOrdered B y: Ben on 12-26-2024 Basophils/100 WBC (Bld) 0.3 % 0- [facility] Bilirubin, totalOrdered By: Shilpa Ben on 12-26-2024 Bilirubin [Mass/Vol] 0.23 mg/dL 0.00-1.30 [facility] CBC W/Diff, Automatedon 12-17 Absolute Lymph 0.66 X10 3/uL Low 0.83-4.51 [facility] Comment on above: Performed By: #### L 500.4050, L100.0100 ####[facility] [address] [place], [address] Absolute Neut 8.7 X10 3/uL High 2.0-7.7 [facility] Comment on above: Performed By: #### L [id number], L100.0100 ####[facility] [address] [place], [address] Basophils/100 WBC (Bld) 0.3 % Normal 0-1 [facility] Comment on above: Performed By: #### L [id number], L100.0100 ####[facility] [address] [place], [address] Eosinophils/100 WBC (Bld) 0.2 % Normal 0-5 [facility] Comment on above: Performed By: #### L [id number], L100.0100 ####[facility] [address] [place], [address] Erythrocyte distribution width (RBC) [Ratio] 14.7 % High 11.6-14.6 [facility] Comment on above: Performed By: #### L [id number], L100.0100 ####[facility] [address] [place], [address] Hematocrit (Bld) [Volume fraction] 35.8 % Low 40-54 [facility] Comment on above: Performed By: #### L [id number], L100.0100 ####[facility] [address] [place], [address] Hemoglobin (Bld) [Mass/Vol] 11.3 g/dL Low 13.0-16.5 [facility] Comment on above: Performed By: #### L 500.4050, L100.0100 ####[facility] [address] [place], [address] IG% 0.500 Normal 0.0-0.9 [facility] Comment on above: Result Comment: IG% - Immature Granulocytes (promyelocytes, myelocytes andmetamyelocytes) > 1% indicates that a LEFT SHIFT is Present. Performed By: #### L 500.4050, L100.0100 ####[facility] [address] [place], [address] Lymphocytes/100 WBC (Bld) 6.5 % Low 19-41 [facility] Comment on above: Performed By: #### L [id number], L100.0100 ####[facility] [address] [place], [address] MCH (RBC) [Entitic mass] 27.6 pg Normal 27.0-32.0 [facility] Comment on above: Performed By: #### L [id number], L100.0100 ####[facility] [address] [place], [address] MCHC (RBC) [Mass/Vol] 31.6 g/dL Low 32-36 [facility] Comment on above: Performed By: #### L [id number], L100.0100 ####[facility] [address] [place], [address] MCV (RBC) [Entitic vol] 87.3 fL Normal 80-94 [facility] Comment on above: Performed By: #### L 500.4050, L100.0100 ####[facility] [address] [place], [address] Monocytes/100 WBC (Bld) 7.8 % Normal 0-10 [facility] Comment on above: Performed By: #### L 500.4050, L100.0100 ####[facility] [address] [place], [address] Neutrophils/100 WBC (Bld) 84.7 % High 47-70 [facility] Comment on above: Performed By: #### L 500.4050, L100.0100 ####[facility] [address] [place], [address] Nucleated RBC (Bld) [#/Vol] 0 10*3/uL Normal 0-5 [facility] Comment on above: Performed By: #### L 500.4050, L100.0100 ####[facility] [address] [place], [address] Platelet mean volume (Bld) [Entitic vol] 10.1 fL Normal 6.2-12.0 [facility] Comment on above: Performed By: #### L 500.4050, L100.0100 ####[facility] [address] [place], [address] Platelets (Bld) [#/Vol] 363 10*3/uL Normal 150-450 [facility] Comment on above: Performed By: #### L 500.4050, L100.0100 ####[facility] [address] [place], [address] RBC (Bld) [#/Vol] 4.10 10*6/uL Low 4.6-6.2 [facility] Comment on above: Performed By: #### L 500.4050, L100.0100 ####[facility] [address] [place], [address] RDW SD 46.5 fl High 35.1-43.9 [facility] Comment on above: Performed By: #### L 500.4050, L100.0100 ####[facility] [address] [place], [address] WBC (Bld) [#/Vol] 10.2 10*3/uL Normal 4.4-11.0 [facility] Comment on above: Performed By: #### L 500.4050, L100.0100 ####[facility] [address] [place], [address] Carbon dioxide, total [Moles /volume] in Central venous bloodOrdered By: Shilpa Contreras on 12-26-2024 CO2 [Moles/Vol] 30.3 mmol/L 21.0-32.0 [facility] Chloride assayOrdered By: Kisha Contreras on 12-26-2024 Chloride [Moles/Vol] 98 mmol/L 98-108 [facility] Comprehensive Metabolic Prof ilon 12-26-2024 Albumin [Mass/Vol] 3.7 g/dL Normal 3.4-4.8 [facility] Comment on above: Performed By: #### L 500.4050, L100.0100 ####[facility] [address] [place], [address] Albumin/Globulin [Mass ratio] 1.6 {ratio} Normal 0.9-2.4 [facility] Comment on above: Performed By: #### L 500.4050, L100.0100 ####[facility] [address] [place], [address] ALK PHOS 67 U/L Normal 40-129 [facility] Comment on above: Performed By: #### L 500.4050, L100.0100 ####[facility] [address] [place], [address] ALT [Catalytic activity/Vol] 19 U/L Normal <=46 [facility] Comment on above: Performed By: #### L 500.4050, L100.0100 ####[facility] [address] [place], [address] AST [Catalytic activity/Vol] 22 U/L Normal <=37 [facility] Comment on above: Performed By: #### L 500.4050, L100.0100 ####[facility] [address] [place], [address] Bilirubin [Mass/Vol] 0.23 mg/dL Normal 0.00-1.30 [facility] Comment on above: Performed By: #### L 500.4050, L100.0100 ####[facility] [address] [place], [address] BUN/CRE 14.4 RATIO Normal 10-20 [facility] Comment on above: Performed By: #### L 500.4050, L100.0100 ####[facility] [address] [place], [address] Calcium [Mass/Vol] 9.7 mg/dL Normal 7.6-11.0 [facility] Comment on above: Performed By: #### L 500.4050, L100.0100 ####[facility] [address] [place], [address] Chloride [Moles/Vol] 98 mmol/L Normal 98-108 [facility] Comment on above: Performed By: #### L 500.4050, L100.0100 ####[facility] [address] [place], [address] CO2 [Moles/Vol] 30.3 mmol/L Normal 21.0-32.0 [facility] Comment on above: Performed By: #### L 500.4050, L100.0100 ####[facility] [address] [place], [address] Creatinine [Mass/Vol] 1.07 mg/dL Normal 0.70-1.20 [facility] Comment on above: Performed By: #### L 500.4050, L100.0100 ####[facility] [address] [place], [address] ECRCL 57.71 ml/min Normal 50-250 [facility] Comment on above: Performed By: #### L 500.4050, L100.0100 ####[facility] [address] [place], [address] GAP 12 Normal 5-15 [facility] Comment on above: Performed By: #### L 500.4050, L100.0100 ####[facility] [address] [place], [address] GFR/1.73 sq M.predicted among non-blacks MDRD (S/P/Bld) [Vol rate/Area] 72 mL/min/{1.73_m2} Normal >60 [facility] Comment on above: Result Comment: mL/m in/1.73m2 CKD-EPI Creatinine Equation (2020) Performed By: #### L 500.4050, L100.0100 ####[facility] [address] [place], [address] Globulin (S) [Mass/Vol] 2.3 g/dL Normal 2.2-4.2 [facility] Comment on above: Performed By: #### L 500.4050, L100.0100 ####[facility] [address] [place], [address] Glucose [Mass/Vol] 142 mg/dL High 70-99 [facility] Comment on above: Performed By: #### L 500.4050, L100.0100 ####[facility] [address] [place], [address] Potassium [Moles/Vol] 3.4 mmol/L Normal 3.3-5.1 [facility] Comment on above: Performed By: #### L 500.4050, L100.0100 ####[facility] [address] [place], [address] Sodium [Moles/Vol] 140 mmol/L Normal 133-145 [facility] Comment on above: Performed By: #### L 500.4050, L100.0100 ####[facility] [address] [place], [address] T PROT 6.0 g/dL Normal 5.9-8.4 [facility] Comment on above: Performed By: #### L 500.4050, L100.0100 ####[facility] [address] [place], [place], [id number] Urea nitrogen [Mass/Vol] 15 mg/dL Normal 4-19 [facility] Comment on above: Performed By: #### L 500.4050, L100.0100 ####[facility] [address] [place], [place], [id number] Eosinophil percentageOrdered By: Shilpa Ben on 12-26-2024 Eosinophils/100 WBC (Bld) 0.2 % 0-5 [facility] Erythrocyte distribution wid th ratioOrdered By: Shilpa White on 12-26-2024 Erythrocyte distribution width (RBC) [Ratio] 14.7 % High 11.6-14.6 [facility] Erythrocyte distribution wid th standard deviationOrdered By: Shilpa Ben on 12-26-2024 Erythrocyte distribution width (RBC) [Ratio] 46.5 fl High 35.1-43.9 [facility] Glomerular filtration rate ( GFR) estimation/1.73 sq m using serum, plasma, or whole bOrdered By: Shilpa Contreras on 12-26-2024 GFR/1.73 sq M.predicted among non-blacks MDRD (S/P/Bld) [Vol rate/Area] 72 mL/min/{1.73_m2} >60 [facility] Hematocrit Auto (Bld) [Volum e fraction]Ordered By: Shilpa Contreras 12-26-2024 Hematocrit (Bld) [Volume fraction] 35.8 % Low 40-54 [facility] Hemoglobin measurementOrdere d By: Shilpa Contreras on 12-26-2024 Hemoglobin (Bld) [Mass/Vol] 11.3 g/dL Low 13.0-16.5 [facility] Immature granulocytes/100 WB C Auto (Bld)Ordered By: Shilpa Ben on 12-26-2024 Immature granulocytes/100 WBC (Bld) 0.500 % 0.0-0.9 [facility] MCV (mean corpuscular volume ) determinationOrdered By: Shilpa Contreras 12-26-2024 MCV (RBC) [Entitic vol] 87.3 fL 80-94 [facility] Mean corpuscular hemoglobin (MCH) determinationOrdered By: Shilpa Contreras on 12-26-2024 MCH (RBC) [Entitic mass] 27.6 pg 27.0-32.0 [facility] Monocyte percentageOrdered B y: Shilpa Contreras on 12-26-2024 Monocytes/100 WBC (Bld) 7.8 % 0-10 [facility] Neutrophil percentageOrdered By: Ben on 12-26-2024 Neutrophils/100 WBC (Bld) 84.7 % High 47-70 [facility] No Panel InformationOrdered By: Shilpa Contreras on 12-26-2024 22 U/L <38 [facility] Platelet countOrdered By: Kisha solares Ben on 12-26-2024 Platelets (Bld) [#/Vol] 363 10*3/uL 150-450 [facility] Potassium measurement (mass/ volume)Ordered By: Shilpa Contreras on 12-26-2024 Potassium (Unsp spec) [Mass/Vol] 3.4 mmol/L 3.3-5.1 [facility] RBC Auto (Bld) [#/Vol]Ordere d By: Shilpa Contreras on 12-26-2024 RBC (Bld) [#/Vol] 4.10 10*6/uL Low 4.6-6.2 [facility] Serum creatinine measurement (mass/volume)Ordered By: Shilpa Contreras on 12-26-2024 Creatinine [Mass/Vol] 1.07 mg/dL 0.70-1.20 [facility] Serum globulin measurementOr dered By: Shilpa Contreras on 12-26-2024 Globulin (S) [Mass/Vol] 2.3 g/dL 2.2-4.2 [facility] Serum glucose measurement (m ass/volume)Ordered By: Shilpa Contreras on 12-26-2024 Glucose [Mass/Vol] 142 mg/dL High 70-99 [facility] Serum or plasma alanine saul otransferase (ALT) measurementOrdered By: Shilpa Contreras on 12-26-2024 ALT [Catalytic activity/Vol] 19 U/L <47 [facility] Serum or plasma albumin luis urement (mass/volume)Ordered By: Shilpa Contreras on 12-26-2024 Albumin [Mass/Vol] 3.7 g/dL 3.4-4.8 [facility] Serum or plasma albumin/glob ulin mass ratioOrdered By: Shilpa Contreras on 12-26-2024 Albumin/Globulin [Mass ratio] 1.6 {ratio} 0.9-2.4 [facility] Serum or plasma alkaline kathleen sphatase measurementOrdered By: Shilpa Ben on 12-26-2024 ALP [Catalytic activity/Vol] 67 U/L 40-129 [facility] Serum or plasma calcium luis urement (mass/volume)Ordered By: Shilpa Contreras on 12-26-2024 Calcium [Mass/Vol] 9.7 mg/dL 7.6-11.0 [facility] Serum or plasma urea nitroge n measurement (mass/volume)Ordered By: Shilpa Contreras on 12-26-2024 Urea nitrogen [Mass/Vol] 15 mg/dL 4-19 [facility] Sodium levelOrdered By: Rovertou mn Ben on 12-26-2024 Sodium [Moles/Vol] 140 mmol/L 133-145 [facility] Total proteinOrdered By: Roverto umn Ben on 12-26-2024 Protein [Mass/Vol] 6.0 g/dL 5.9-8.4 [facility] White blood cell (WBC) count Ordered By: Shilpa Contreras on 12-26-2024 WBC (Bld) [#/Vol] 10.2 10*3/uL 4.4-11.0 [facility] CBC W/Diff, Automatedon 07-0 Absolute Lymph 0.96 X10 3/uL Normal 0.83-4.51 [facility] Comment on above: Performed By: #### L 100.0100, L501.5200, L500.4050 ####[facility] [address] [place], [address] Absolute Neut 9.8 X10 3/uL High 2.0-7.7 [facility] Comment on above: Performed By: #### L 100.0100, L501.5200, L500.4050 ####[facility] [address] [place], [address] Basophils/100 WBC (Bld) 0.3 % Normal 0-1 [facility] Comment on above: Performed By: #### L 100.0100, L501.5200, L500.4050 ####[facility] [address] [place], [address] Eosinophils/100 WBC (Bld) 0.3 % Normal 0-5 [facility] Comment on above: Performed By: #### L 100.0100, L501.5200, L500.4050 ####[facility] [address] [place], [address] Erythrocyte distribution width (RBC) [Ratio] 14.5 % Normal 11.6-14.6 [facility] Comment on above: Performed By: #### L 100.0100, L501.5200, L500.4050 ####[facility] [address] [place], [address] Hematocrit (Bld) [Volume fraction] 40.5 % Normal 40-54 [facility] Comment on above: Performed By: #### L 100.0100, L501.5200, L500.4050 ####[facility] [address] [place], [address] Hemoglobin (Bld) [Mass/Vol] 12.5 g/dL Low 13.0-16.5 [facility] Comment on above: Performed By: #### L 100.0100, L501.5200, L500.4050 ####[facility] [address] [place], [address] IG% 0.700 Normal 0.0-0.9 [facility] Comment on above: Result Comment: IG% - Immature Granulocytes (promyelocytes, myelocytes andmetamyelocytes) > 1% indicates that a LEFT SHIFT is Present. Performed By: #### L 100.0100, L501.5200, L500.4050 ####[facility] [address] [place], [address] Lymphocytes/100 WBC (Bld) 8.0 % Low 19-41 [facility] Comment on above: Performed By: #### L 100.0100, L501.5200, L500.4050 ####[facility] [address] [place], [address] MCH (RBC) [Entitic mass] 27.4 pg Normal 27.0-32.0 [facility] Comment on above: Performed By: #### L 100.0100, L501.5200, L500.4050 ####[facility] [address] [place], [address] MCHC (RBC) [Mass/Vol] 30.9 g/dL Low 32-36 [facility] Comment on above: Performed By: #### L 100.0100, L501.5200, L500.4050 ####[facility] [address] [place], [address] MCV (RBC) [Entitic vol] 88.6 fL Normal 80-94 [facility] Comment on above: Performed By: #### L 100.0100, L501.5200, L500.4050 ####[facility] [address] [place], [address] Monocytes/100 WBC (Bld) 8.4 % Normal 0-10 [facility] Comment on above: Performed By: #### L 100.0100, L501.5200, L500.4050 ####[facility] [address] [place], [address] Neutrophils/100 WBC (Bld) 82.3 % High 47-70 [facility] Comment on above: Performed By: #### L 100.0100, L501.5200, L500.4050 ####[facility] [address] [place], [address] Nucleated RBC (Bld) [#/Vol] 0 10*3/uL Normal 0-5 [facility] Comment on above: Performed By: #### L 100.0100, L501.5200, L500.4050 ####[facility] [address] [place], [address] Platelet mean volume (Bld) [Entitic vol] 10.2 fL Normal 6.2-12.0 [facility] Comment on above: Performed By: #### L 100.0100, L501.5200, L500.4050 ####[facility] [address] [place], [address] Platelets (Bld) [#/Vol] 449 10*3/uL Normal 150-450 [facility] Comment on above: Performed By: #### L 100.0100, L501.5200, L500.4050 ####[facility] [address] [place], [address] RBC (Bld) [#/Vol] 4.57 10*6/uL Low 4.6-6.2 [facility] Comment on above: Performed By: #### L 100.0100, L501.5200, L500.4050 ####[facility] [address] [place], [address] RDW SD 45.9 fl High 35.1-43.9 [facility] Comment on above: Performed By: #### L 100.0100, L501.5200, L500.4050 ####[facility] [address] [place], [address] WBC (Bld) [#/Vol] 12.0 10*3/uL High 4.4-11.0 [facility] Comment on above: Performed By: #### L 100.0100, L501.5200, L500.4050 ####[facility] [address] [place], [address] Comprehensive Metabolic [facility] 12-25-2024 Albumin [Mass/Vol] 4.0 g/dL Normal 3.4-4.8 [facility] Comment on above: Performed By: #### L 100.0100, L501.5200, L500.4050 ####[facility] [address] [place], [address] Albumin/Globulin [Mass ratio] 1.5 {ratio} Normal 0.9-2.4 [facility] Comment on above: Performed By: #### L 100.0100, L501.5200, L500.4050 ####[facility] [address] [place], [address] ALK PHOS 74 U/L Normal 40-129 [facility] Comment on above: Performed By: #### L 100.0100, L501.5200, L500.4050 ####[facility] [address] [place], [address] ALT [Catalytic activity/Vol] 22 U/L Normal <=46 [facility] Comment on above: Performed By: #### L 100.0100, L501.5200, L500.4050 ####[facility] [address] [place], [address] AST [Catalytic activity/Vol] 31 U/L Normal <=37 [facility] Comment on above: Performed By: #### L 100.0100, L501.5200, L500.4050 ####[facility] [address] [place], [address] Bilirubin [Mass/Vol] 0.23 mg/dL Normal 0.00-1.30 [facility] Comment on above: Performed By: #### L 100.0100, L501.5200, L500.4050 ####[facility] [address] [place], [address] BUN/CRE 13.4 RATIO Normal 10-20 [facility] Comment on above: Performed By: #### L 100.0100, L501.5200, L500.4050 ####[facility] [address] [place], [address] Calcium [Mass/Vol] 9.5 mg/dL Normal 7.6-11.0 [facility] Comment on above: Performed By: #### L 100.0100, L501.5200, L500.4050 ####[facility] [address] [place], [address] Chloride [Moles/Vol] 101 mmol/L Normal 98-108 [facility] Comment on above: Performed By: #### L 100.0100, L501.5200, L500.4050 ####[facility] [address] [place], [address] CO2 [Moles/Vol] 27.5 mmol/L Normal 21.0-32.0 [facility] Comment on above: Performed By: #### L 100.0100, L501.5200, L500.4050 ####[facility] [address] [place], [address] Creatinine [Mass/Vol] 1.05 mg/dL Normal 0.70-1.20 [facility] Comment on above: Performed By: #### L 100.0100, L501.5200, L500.4050 ####[facility] [address] [place], [address] ECRCL 58.81 ml/min Normal 50-250 [facility] Comment on above: Performed By: #### L 100.0100, L501.5200, L500.4050 ####[facility] [address] [place], [address] GAP 12 Normal 5-15 [facility] Comment on above: Performed By: #### L 100.0100, L501.5200, L500.4050 ####[facility] [address] [place], [address] GFR/1.73 sq M.predicted among non-blacks MDRD (S/P/Bld) [Vol rate/Area] 74 mL/min/{1.73_m2} Normal >60 [facility] Comment on above: Result Comment: mL/m in/1.73m2 CKD-EPI Creatinine Equation (2020) Performed By: #### L 100.0100, L501.5200, L500.4050 ####[facility] [address] [place], [address] Globulin (S) [Mass/Vol] 2.7 g/dL Normal 2.2-4.2 [facility] Comment on above: Performed By: #### L 100.0100, L501.5200, L500.4050 ####[facility] [address] [place], [address] Glucose [Mass/Vol] 118 mg/dL High 70-99 [facility] Comment on above: Performed By: #### L 100.0100, L501.5200, L500.4050 ####[facility] [address] [place], [address] Potassium [Moles/Vol] 3.3 mmol/L Normal 3.3-5.1 [facility] Comment on above: Performed By: #### L 100.0100, L501.5200, L500.4050 ####[facility] [address] [place], [address] Sodium [Moles/Vol] 141 mmol/L Normal 133-145 [facility] Comment on above: Performed By: #### L 100.0100, L501.5200, L500.4050 ####[facility] [address] [place], [address] T PROT 6.7 g/dL Normal 5.9-8.4 [facility] Comment on above: Performed By: #### L 100.0100, L501.5200, L500.4050 ####[facility] [address] [place], [address] Urea nitrogen [Mass/Vol] 14 mg/dL Normal 4-19 [facility] Comment on above: Performed By: #### L 100.0100, L501.5200, L500.4050 ####[facility] [address] [place], [address] Magnesiumon 12-25-2024 Magnesium [Mass/Vol] 2.3 mg/dL High 1.5-2.2 [facility] Comment on above: Performed By: #### L 100.0100, L501.5200, L500.4050 ####[facility] [address] [place], [address] Magnesium measurement (mass/ volume)Ordered By: Sania Peña on 12-25-2024 Magnesium (Unsp spec) [Mass/Vol] 2.3 mg/dL High 1.5-2.2 [facility] Phosphoruson 12-25-2024 Phosphate [Mass/Vol] 2.0 mg/dL Low 2.7-4.5 [facility] Comment on above: Performed By: #### L 501.2300 ####[facility] [address] [place], [address] CBC W/Diff, Automatedon 07-0 Absolute Lymph 0.72 X10 3/uL Low 0.83-4.51 [facility] Comment on above: Performed By: #### L 100.0100, L500.4050 ####[facility] [address] [place], [address] Absolute Neut 7.0 X10 3/uL Normal 2.0-7.7 [facility] Comment on above: Performed By: #### L 100.0100, L500.4050 ####[facility] [address] [place], [address] Basophils/100 WBC (Bld) 0.5 % Normal 0-1 [facility] Comment on above: Performed By: #### L 100.0100, L500.4050 ####[facility] [address] [place], [address] Eosinophils/100 WBC (Bld) 0.4 % Normal 0-5 [facility] Comment on above: Performed By: #### L 100.0100, L500.4050 ####[facility] [address] [place], [address] Erythrocyte distribution width (RBC) [Ratio] 14.6 % Normal 11.6-14.6 [facility] Comment on above: Performed By: #### L 100.0100, L500.4050 ####[facility] [address] [place], [address] Hematocrit (Bld) [Volume fraction] 37.0 % Low 40-54 [facility] Comment on above: Performed By: #### L 100.0100, L500.4050 ####[facility] [address] [place], [address] Hemoglobin (Bld) [Mass/Vol] 11.5 g/dL Low 13.0-16.5 [facility] Comment on above: Performed By: #### L 100.0100, L500.4050 ####[facility] [address] [place], [address] IG% 0.500 Normal 0.0-0.9 [facility] Comment on above: Result Comment: IG% - Immature Granulocytes (promyelocytes, myelocytes andmetamyelocytes) > 1% indicates that a LEFT SHIFT is Present. Performed By: #### L 100.0100, L500.4050 ####[facility] [address] [place], [address] Lymphocytes/100 WBC (Bld) 8.5 % Low 19-41 [facility] Comment on above: Performed By: #### L 100.0100, L500.4050 ####[facility] [address] [place], [address] MCH (RBC) [Entitic mass] 27.7 pg Normal 27.0-32.0 [facility] Comment on above: Performed By: #### L 100.0100, L500.4050 ####[facility] [address] [place], [address] MCHC (RBC) [Mass/Vol] 31.1 g/dL Low 32-36 [facility] Comment on above: Performed By: #### L 100.0100, L500.4050 ####[facility] [address] [place], [address] MCV (RBC) [Entitic vol] 89.2 fL Normal 80-94 [facility] Comment on above: Performed By: #### L 100.0100, L500.4050 ####[facility] [address] [place], [address] Monocytes/100 WBC (Bld) 7.7 % Normal 0-10 [facility] Comment on above: Performed By: #### L 100.0100, L500.4050 ####[facility] [address] [place], [address] Neutrophils/100 WBC (Bld) 82.4 % High 47-70 [facility] Comment on above: Performed By: #### L 100.0100, L500.4050 ####[facility] [address] [place], [address] Nucleated RBC (Bld) [#/Vol] 0 10*3/uL Normal 0-5 [facility] Comment on above: Performed By: #### L 100.0100, L500.4050 ####[facility] [address] [place], [address] Platelet mean volume (Bld) [Entitic vol] 9.7 fL Normal 6.2-12.0 [facility] Comment on above: Performed By: #### L 100.0100, L500.4050 ####[facility] [address] [place], [address] Platelets (Bld) [#/Vol] 380 10*3/uL Normal 150-450 [facility] Comment on above: Performed By: #### L 100.0100, L500.4050 ####[facility] [address] [place], [address] RBC (Bld) [#/Vol] 4.15 10*6/uL Low 4.6-6.2 [facility] Comment on above: Performed By: #### L 100.0100, L500.4050 ####[facility] [address] [place], [address] RDW SD 46.6 fl High 35.1-43.9 [facility] Comment on above: Performed By: #### L 100.0100, L500.4050 ####[facility] [address] [place], [address] WBC (Bld) [#/Vol] 8.5 10*3/uL Normal 4.4-11.0 [facility] Comment on above: Performed By: #### L 100.0100, L500.4050 ####[facility] [address] [place], [address] Comprehensive Metabolic Prof ilon 12-24-2024 Albumin [Mass/Vol] 3.8 g/dL Normal 3.4-4.8 [facility] Comment on above: Performed By: #### L 100.0100, L500.4050 ####[facility] [address] [place], [address] Albumin/Globulin [Mass ratio] 1.8 {ratio} Normal 0.9-2.4 [facility] Comment on above: Performed By: #### L 100.0100, L500.4050 ####[facility] [address] [place], [address] ALK PHOS 64 U/L Normal 40-129 [facility] Comment on above: Performed By: #### L 100.0100, L500.4050 ####[facility] [address] [place], [address] ALT [Catalytic activity/Vol] 28 U/L Normal <=46 [facility] Comment on above: Performed By: #### L 100.0100, L500.4050 ####[facility] [address] [place], [address] AST [Catalytic activity/Vol] 23 U/L Normal <=37 [facility] Comment on above: Performed By: #### L 100.0100, L500.4050 ####[facility] [address] [place], [address] Bilirubin [Mass/Vol] 0.25 mg/dL Normal 0.00-1.30 [facility] Comment on above: Performed By: #### L 100.0100, L500.4050 ####[facility] [address] [place], [address] BUN/CRE 16.9 RATIO Normal 10-20 [facility] Comment on above: Performed By: #### L 100.0100, L500.4050 ####[facility] [address] [place], [address] Calcium [Mass/Vol] 8.4 mg/dL Normal 7.6-11.0 [facility] Comment on above: Performed By: #### L 100.0100, L500.4050 ####[facility] [address] [place], [address] Chloride [Moles/Vol] 106 mmol/L Normal 98-108 [facility] Comment on above: Performed By: #### L 100.0100, L500.4050 ####[facility] [address] [place], [address] CO2 [Moles/Vol] 23.1 mmol/L Normal 21.0-32.0 [facility] Comment on above: Performed By: #### L 100.0100, L500.4050 ####[facility] [address] [place], [address] Creatinine [Mass/Vol] 0.98 mg/dL Normal 0.70-1.20 [facility] Comment on above: Performed By: #### L 100.0100, L500.4050 ####[facility] [address] [place], [address] ECRCL 63.01 ml/min Normal 50-250 [facility] Comment on above: Performed By: #### L 100.0100, L500.4050 ####[facility] [address] [place], [address] GAP 11 Normal 5-15 [facility] Comment on above: Performed By: #### L 100.0100, L500.4050 ####[facility] [address] [place], [address] GFR/1.73 sq M.predicted among non-blacks MDRD (S/P/Bld) [Vol rate/Area] 81 mL/min/{1.73_m2} Normal >60 [facility] Comment on above: Result Comment: mL/m in/1.73m2 CKD-EPI Creatinine Equation (2020) Performed By: #### L 100.0100, L500.4050 ####[facility] [address] [place], [address] Globulin (S) [Mass/Vol] 2.2 g/dL Normal 2.2-4.2 [facility] Comment on above: Performed By: #### L 100.0100, L500.4050 ####[facility] [address] [place], [address] Glucose [Mass/Vol] 92 mg/dL Normal 70-99 [facility] Comment on above: Performed By: #### L 100.0100, L500.4050 ####[facility] [address] [place], [address] Potassium [Moles/Vol] 3.9 mmol/L Normal 3.3-5.1 [facility] Comment on above: Performed By: #### L 100.0100, L500.4050 ####[facility] [address] [place], [address] Sodium [Moles/Vol] 140 mmol/L Normal 133-145 [facility] Comment on above: Performed By: #### L 100.0100, L500.4050 ####[facility] [address] [place], [address] T PROT 6.0 g/dL Normal 5.9-8.4 [facility] Comment on above: Performed By: #### L 100.0100, L500.4050 ####[facility] [address] [place], [address] Urea nitrogen [Mass/Vol] 17 mg/dL Normal 4-19 [facility] Comment on above: Performed By: #### L 100.0100, L500.4050 ####[facility] [address] [place], [address] Basic Metabolic Profile (BMP )on 12-23-2024 BUN/CRE 16.4 RATIO Normal 10-20 [facility] Comment on above: Performed By: #### L 500.2500, L100.0500 ####[facility] [address] [place], [address] Calcium [Mass/Vol] 8.4 mg/dL Normal 7.6-11.0 [facility] Comment on above: Performed By: #### L 500.2500, L100.0500 ####[facility] [address] [place], [address] Chloride [Moles/Vol] 104 mmol/L Normal 98-108 [facility] Comment on above: Performed By: #### L 500.2500, L100.0500 ####[facility] [address] [place], [address] CO2 [Moles/Vol] 24.1 mmol/L Normal 21.0-32.0 [facility] Comment on above: Performed By: #### L 500.2500, L100.0500 ####[facility] [address] [place], [address] Creatinine [Mass/Vol] 1.02 mg/dL Normal 0.70-1.20 [facility] Comment on above: Performed By: #### L 500.2500, L100.0500 ####[facility] [address] [place], [address] ECRCL 60.54 ml/min Normal 50-250 [facility] Comment on above: Performed By: #### L 500.2500, L100.0500 ####[facility] [address] [place], [address] GAP 11 Normal 5-15 [facility] Comment on above: Performed By: #### L 500.2500, L100.0500 ####[facility] [address] [place], [address] GFR/1.73 sq M.predicted among non-blacks MDRD (S/P/Bld) [Vol rate/Area] 77 mL/min/{1.73_m2} Normal >60 [facility] Comment on above: Result Comment: mL/m in/1.73m2 CKD-EPI Creatinine Equation (2020) Performed By: #### L 500.2500, L100.0500 ####[facility] [address] [place], [address] Glucose [Mass/Vol] 85 mg/dL Normal 70-99 [facility] Comment on above: Performed By: #### L 500.2500, L100.0500 ####[facility] [address] [place], [address] Potassium [Moles/Vol] 3.8 mmol/L Normal 3.3-5.1 [facility] Comment on above: Performed By: #### L 500.2500, L100.0500 ####[facility] [address] [place], [address] Sodium [Moles/Vol] 139 mmol/L Normal 133-145 [facility] Comment on above: Performed By: #### L 500.2500, L100.0500 ####[facility] [address] [place], [address] Urea nitrogen [Mass/Vol] 17 mg/dL Normal 4-19 [facility] Comment on above: Performed By: #### L 500.2500, L100.0500 ####[facility] [address] [place], [address] CBC-Complete Blood Cnt No Di ffon 12-23-2024 Erythrocyte distribution width (RBC) [Ratio] 14.1 % Normal 11.6-14.6 [facility] Comment on above: Performed By: #### L 500.2500, L100.0500 ####[facility] [address] [place], [address] Hematocrit (Bld) [Volume fraction] 36.3 % Low 40-54 [facility] Comment on above: Performed By: #### L 500.2500, L100.0500 ####[facility] [address] [place], [address] Hemoglobin (Bld) [Mass/Vol] 11.2 g/dL Low 13.0-16.5 [facility] Comment on above: Performed By: #### L 500.2500, L100.0500 ####[facility] [address] [place], [address] MCH (RBC) [Entitic mass] 27.7 pg Normal 27.0-32.0 [facility] Comment on above: Performed By: #### L 500.2500, L100.0500 ####[facility] [address] [place], [address] MCHC (RBC) [Mass/Vol] 30.9 g/dL Low 32-36 [facility] Comment on above: Performed By: #### L 500.2500, L100.0500 ####[facility] [address] [place], [address] MCV (RBC) [Entitic vol] 89.9 fL Normal 80-94 [facility] Comment on above: Performed By: #### L 500.2500, L100.0500 ####[facility] [address] [place], [address] Platelet mean volume (Bld) [Entitic vol] 10.0 fL Normal 6.2-12.0 [facility] Comment on above: Performed By: #### L 500.2500, L100.0500 ####[facility] [address] [place], [address] Platelets (Bld) [#/Vol] 376 10*3/uL Normal 150-450 [facility] Comment on above: Performed By: #### L 500.2500, L100.0500 ####[facility] [address] [place], [address] RBC (Bld) [#/Vol] 4.04 10*6/uL Low 4.6-6.2 [facility] Comment on above: Performed By: #### L 500.2500, L100.0500 ####[facility] [address] [place], [address] RDW SD 46.0 fl High 35.1-43.9 [facility] Comment on above: Performed By: #### L 500.2500, L100.0500 ####[facility] [address] [place], [address] WBC (Bld) [#/Vol] 7.5 10*3/uL Normal 4.4-11.0 [facility] Comment on above: Performed By: #### L 500.2500, L100.0500 ####[facility] [address] [place], [address] Duplex ultrasound of carotid artery reportOrdered By: Raul Jensen on 12-23-2024 Study report [facility] Work Phone: EGD Reporton 12-23-2024 EGD Report Normal [facility] MR/POSTOP.ANEon 12-23-2024 MR/POSTOP.ANE Normal [facility] MR/YMYFCPTT1vg 12-23-2024 MR/POSTOPAN2 Normal [facility] Basic Metabolic Profile (BMP )on 12-22-2024 BUN/CRE 15.7 RATIO Normal 10-20 [facility] Comment on above: Performed By: #### L 100.0500, L500.2500 ####[facility] [address] [place], [address] Calcium [Mass/Vol] 8.8 mg/dL Normal 7.6-11.0 [facility] Comment on above: Performed By: #### L 100.0500, L500.2500 ####[facility] [address] [place], [address] Chloride [Moles/Vol] 103 mmol/L Normal 98-108 [facility] Comment on above: Performed By: #### L 100.0500, L500.2500 ####[facility] [address] [place], [address] CO2 [Moles/Vol] 24.6 mmol/L Normal 21.0-32.0 [facility] Comment on above: Performed By: #### L 100.0500, L500.2500 ####[facility] [address] [place], [address] Creatinine [Mass/Vol] 1.03 mg/dL Normal 0.70-1.20 [facility] Comment on above: Performed By: #### L 100.0500, L500.2500 ####[facility] [address] [place], [address] ECRCL 59.95 ml/min Normal 50-250 [facility] Comment on above: Performed By: #### L 100.0500, L500.2500 ####[facility] [address] [place], [address] GAP 11 Normal 5-15 [facility] Comment on above: Performed By: #### L 100.0500, L500.2500 ####[facility] [address] [place], [address] GFR/1.73 sq M.predicted among non-blacks MDRD (S/P/Bld) [Vol rate/Area] 76 mL/min/{1.73_m2} Normal >60 [facility] Comment on above: Result Comment: mL/m in/1.73m2 CKD-EPI Creatinine Equation (2020) Performed By: #### L 100.0500, L500.2500 ####[facility] [address] [place], [address] Glucose [Mass/Vol] 84 mg/dL Normal 70-99 [facility] Comment on above: Performed By: #### L 100.0500, L500.2500 ####[facility] [address] [place], [address] Potassium [Moles/Vol] 3.6 mmol/L Normal 3.3-5.1 [facility] Comment on above: Performed By: #### L 100.0500, L500.2500 ####[facility] [address] [place], [address] Sodium [Moles/Vol] 139 mmol/L Normal 133-145 [facility] Comment on above: Performed By: #### L 100.0500, L500.2500 ####[facility] [address] [place], [address] Urea nitrogen [Mass/Vol] 16 mg/dL Normal 4-19 [facility] Comment on above: Performed By: #### L 100.0500, L500.2500 ####[facility] [address] [place], [address] CBC-Complete Blood Cnt No Di ffon 12-22-2024 Erythrocyte distribution width (RBC) [Ratio] 13.8 % Normal 11.6-14.6 [facility] Comment on above: Performed By: #### L 100.0500, L500.2500 ####[facility] [address] [place], [address] Hematocrit (Bld) [Volume fraction] 37.7 % Low 40-54 [facility] Comment on above: Performed By: #### L 100.0500, L500.2500 ####[facility] [address] [place], [address] Hemoglobin (Bld) [Mass/Vol] 11.7 g/dL Low 13.0-16.5 [facility] Comment on above: Performed By: #### L 100.0500, L500.2500 ####[facility] [address] [place], [address] MCH (RBC) [Entitic mass] 27.7 pg Normal 27.0-32.0 [facility] Comment on above: Performed By: #### L 100.0500, L500.2500 ####[facility] [address] [place], [address] MCHC (RBC) [Mass/Vol] 31.0 g/dL Low 32-36 [facility] Comment on above: Performed By: #### L 100.0500, L500.2500 ####[facility] [address] [place], [address] MCV (RBC) [Entitic vol] 89.1 fL Normal 80-94 [facility] Comment on above: Performed By: #### L 100.0500, L500.2500 ####[facility] [address] [place], [address] Platelet mean volume (Bld) [Entitic vol] 10.1 fL Normal 6.2-12.0 [facility] Comment on above: Performed By: #### L 100.0500, L500.2500 ####[facility] [address] [place], [address] Platelets (Bld) [#/Vol] 392 10*3/uL Normal 150-450 [facility] Comment on above: Performed By: #### L 100.0500, L500.2500 ####[facility] [address] [place], [address] RBC (Bld) [#/Vol] 4.23 10*6/uL Low 4.6-6.2 [facility] Comment on above: Performed By: #### L 100.0500, L500.2500 ####[facility] [address] [place], [address] RDW SD 45.0 fl High 35.1-43.9 [facility] Comment on above: Performed By: #### L 100.0500, L500.2500 ####[facility] [address] [place], [address] WBC (Bld) [#/Vol] 7.5 10*3/uL Normal 4.4-11.0 [facility] Comment on above: Performed By: #### L 100.0500, L500.2500 ####[facility] [address] [place], [address] Basic Metabolic Profile (BMP )on 12-21-2024 BUN/CRE 16.2 RATIO Normal 10-20 [facility] Comment on above: Performed By: #### L 100.0100, L500.2500 ####[facility] [address] [place], [address] Calcium [Mass/Vol] 8.3 mg/dL Normal 7.6-11.0 [facility] Comment on above: Performed By: #### L 100.0100, L500.2500 ####[facility] [address] [place], [address] Chloride [Moles/Vol] 105 mmol/L Normal 98-108 [facility] Comment on above: Performed By: #### L 100.0100, L500.2500 ####[facility] [address] [place], [address] CO2 [Moles/Vol] 25.0 mmol/L Normal 21.0-32.0 [facility] Comment on above: Performed By: #### L 100.0100, L500.2500 ####[facility] [address] [place], [address] Creatinine [Mass/Vol] 0.99 mg/dL Normal 0.70-1.20 [facility] Comment on above: Performed By: #### L 100.0100, L500.2500 ####[facility] [address] [place], [address] ECRCL 62.37 ml/min Normal 50-250 [facility] Comment on above: Performed By: #### L 100.0100, L500.2500 ####[facility] [address] [place], [address] GAP 9 Normal 5-15 [facility] Comment on above: Performed By: #### L 100.0100, L500.2500 ####[facility] [address] [place], [address] GFR/1.73 sq M.predicted among non-blacks MDRD (S/P/Bld) [Vol rate/Area] 80 mL/min/{1.73_m2} Normal >60 [facility] Comment on above: Result Comment: mL/m in/1.73m2 CKD-EPI Creatinine Equation (2020) Performed By: #### L 100.0100, L500.2500 ####[facility] [address] [place], [address] Glucose [Mass/Vol] 95 mg/dL Normal 70-99 [facility] Comment on above: Performed By: #### L 100.0100, L500.2500 ####[facility] [address] [place], [address] Potassium [Moles/Vol] 3.5 mmol/L Normal 3.3-5.1 [facility] Comment on above: Performed By: #### L 100.0100, L500.2500 ####[facility] [address] [place], [address] Sodium [Moles/Vol] 139 mmol/L Normal 133-145 [facility] Comment on above: Performed By: #### L 100.0100, L500.2500 ####[facility] [address] [place], [address] Urea nitrogen [Mass/Vol] 16 mg/dL Normal 4-19 [facility] Comment on above: Performed By: #### L 100.0100, L500.2500 ####[facility] [address] [place], [address] CBC W/Diff, Automatedon 07-0 5-2025 Absolute Lymph 0.95 X10 3/uL Normal 0.83-4.51 [facility] Comment on above: Performed By: #### L 100.0100, L500.2500 ####[facility] [address] [place], [address] Absolute Neut 5.0 X10 3/uL Normal 2.0-7.7 [facility] Comment on above: Performed By: #### L 100.0100, L500.2500 ####[facility] [address] [place], [address] Basophils/100 WBC (Bld) 0.6 % Normal 0-1 [facility] Comment on above: Performed By: #### L 100.0100, L500.2500 ####[facility] [address] [place], [address] Eosinophils/100 WBC (Bld) 1.2 % Normal 0-5 [facility] Comment on above: Performed By: #### L 100.0100, L500.2500 ####[facility] [address] [place], [address] Erythrocyte distribution width (RBC) [Ratio] 13.7 % Normal 11.6-14.6 [facility] Comment on above: Performed By: #### L 100.0100, L500.2500 ####[facility] [address] [place], [address] Hematocrit (Bld) [Volume fraction] 33.8 % Low 40-54 [facility] Comment on above: Performed By: #### L 100.0100, L500.2500 ####[facility] [address] [place], [address] Hemoglobin (Bld) [Mass/Vol] 10.4 g/dL Low 13.0-16.5 [facility] Comment on above: Performed By: #### L 100.0100, L500.2500 ####[facility] [address] [place], [address] IG% 0.400 Normal 0.0-0.9 [facility] Comment on above: Result Comment: IG% - Immature Granulocytes (promyelocytes, myelocytes andmetamyelocytes) > 1% indicates that a LEFT SHIFT is Present. Performed By: #### L 100.0100, L500.2500 ####[facility] [address] [place], [address] Lymphocytes/100 WBC (Bld) 14.2 % Low 19-41 [facility] Comment on above: Performed By: #### L 100.0100, L500.2500 ####[facility] [address] [place], [address] MCH (RBC) [Entitic mass] 27.6 pg Normal 27.0-32.0 [facility] Comment on above: Performed By: #### L 100.0100, L500.2500 ####[facility] [address] [place], [address] MCHC (RBC) [Mass/Vol] 30.8 g/dL Low 32-36 [facility] Comment on above: Performed By: #### L 100.0100, L500.2500 ####[facility] [address] [place], [address] MCV (RBC) [Entitic vol] 89.7 fL Normal 80-94 [facility] Comment on above: Performed By: #### L 100.0100, L500.2500 ####[facility] [address] [place], [address] Monocytes/100 WBC (Bld) 8.5 % Normal 0-10 [facility] Comment on above: Performed By: #### L 100.0100, L500.2500 ####[facility] [address] [place], [address] Neutrophils/100 WBC (Bld) 75.1 % High 47-70 [facility] Comment on above: Performed By: #### L 100.0100, L500.2500 ####[facility] [address] [place], [address] Nucleated RBC (Bld) [#/Vol] 0 10*3/uL Normal 0-5 [facility] Comment on above: Performed By: #### L 100.0100, L500.2500 ####[facility] [address] [place], [address] Platelet mean volume (Bld) [Entitic vol] 9.7 fL Normal 6.2-12.0 [facility] Comment on above: Performed By: #### L 100.0100, L500.2500 ####[facility] [address] [place], [address] Platelets (Bld) [#/Vol] 326 10*3/uL Normal 150-450 [facility] Comment on above: Performed By: #### L 100.0100, L500.2500 ####[facility] [address] [place], [address] RBC (Bld) [#/Vol] 3.77 10*6/uL Low 4.6-6.2 [facility] Comment on above: Performed By: #### L 100.0100, L500.2500 ####[facility] [address] [place], [address] RDW SD 44.7 fl High 35.1-43.9 [facility] Comment on above: Performed By: #### L 100.0100, L500.2500 ####[facility] [address] [place], [address] WBC (Bld) [#/Vol] 6.7 10*3/uL Normal 4.4-11.0 [facility] Comment on above: Performed By: #### L 100.0100, L500.2500 ####[facility] [address] [place], [address] CBC W/Diff, Automatedon 07-0 4-2025 Absolute Lymph 0.69 X10 3/uL Low 0.83-4.51 [facility] Comment on above: Performed By: #### L 100.0100 ####[facility] [address] [place], [address] Absolute Neut 5.5 X10 3/uL Normal 2.0-7.7 [facility] Comment on above: Performed By: #### L 100.0100 ####[facility] [address] [place], [address] Basophils/100 WBC (Bld) 0.9 % Normal 0-1 [facility] Comment on above: Performed By: #### L 100.0100 ####[facility] [address] [place], [address] Eosinophils/100 WBC (Bld) 1.2 % Normal 0-5 [facility] Comment on above: Performed By: #### L 100.0100 ####[facility] [address] [place], [address] Erythrocyte distribution width (RBC) [Ratio] 13.7 % Normal 11.6-14.6 [facility] Comment on above: Performed By: #### L 100.0100 ####[facility] [address] [place], [address] Hematocrit (Bld) [Volume fraction] 35.7 % Low 40-54 [facility] Comment on above: Performed By: #### L 100.0100 ####[facility] [address] [place], [address] Hemoglobin (Bld) [Mass/Vol] 10.9 g/dL Low 13.0-16.5 [facility] Comment on above: Performed By: #### L 100.0100 ####[facility] [address] [place], [address] IG% 0.400 Normal 0.0-0.9 [facility] Comment on above: Result Comment: IG% - Immature Granulocytes (promyelocytes, myelocytes andmetamyelocytes) > 1% indicates that a LEFT SHIFT is Present. Performed By: #### L 100.0100 ####[facility] [address] [place], [address] Lymphocytes/100 WBC (Bld) 9.9 % Low 19-41 [facility] Comment on above: Performed By: #### L 100.0100 ####[facility] [address] [place], [address] MCH (RBC) [Entitic mass] 27.3 pg Normal 27.0-32.0 [facility] Comment on above: Performed By: #### L 100.0100 ####[facility] [address] [place], [address] MCHC (RBC) [Mass/Vol] 30.5 g/dL Low 32-36 [facility] Comment on above: Performed By: #### L 100.0100 ####[facility] [address] [place], [address] MCV (RBC) [Entitic vol] 89.5 fL Normal 80-94 [facility] Comment on above: Performed By: #### L 100.0100 ####[facility] [address] [place], [address] Monocytes/100 WBC (Bld) 8.5 % Normal 0-10 [facility] Comment on above: Performed By: #### L 100.0100 ####[facility] [address] [place], [address] Neutrophils/100 WBC (Bld) 79.1 % High 47-70 [facility] Comment on above: Performed By: #### L 100.0100 ####[facility] [address] [place], [address] Nucleated RBC (Bld) [#/Vol] 0 10*3/uL Normal 0-5 [facility] Comment on above: Performed By: #### L 100.0100 ####[facility] [address] [place], [address] Platelet mean volume (Bld) [Entitic vol] 10.0 fL Normal 6.2-12.0 [facility] Comment on above: Performed By: #### L 100.0100 ####[facility] [address] [place], [address] Platelets (Bld) [#/Vol] 355 10*3/uL Normal 150-450 [facility] Comment on above: Performed By: #### L 100.0100 ####[facility] [address] [place], [address] RBC (Bld) [#/Vol] 3.99 10*6/uL Low 4.6-6.2 [facility] Comment on above: Performed By: #### L 100.0100 ####[facility] [address] [place], [address] RDW SD 44.4 fl High 35.1-43.9 [facility] Comment on above: Performed By: #### L 100.0100 ####[facility] [address] [place], [address] WBC (Bld) [#/Vol] 6.9 10*3/uL Normal 4.4-11.0 [facility] Comment on above: Performed By: #### L 100.0100 ####[facility] [address] [place], [address] Carotid Duplex Ultrasoundon 12-20-2024 Carotid Duplex Ultrasound Normal [facility] Vitamin B12on 12-20-2024 Cobalamin (Vitamin B12) [Mass/Vol] 774 pg/mL Normal 180-914 [facility] Comment on above: Performed By: #### L 503.0106 ####[facility] [address] [place], [address] Vitamin B12 ser/plasOrdered By: Lisha Talamantes on 12-20-2024 Cobalamin (Vitamin B12) [Mass/Vol] 774 pg/mL 180-914 [facility] CBC W/Diff, Automatedon 07- Absolute Lymph 0.67 X10 3/uL Low 0.83-4.51 [facility] Comment on above: Performed By: #### L 100.0100, L500.4050 ####[facility] [address] [place], [address] Absolute Neut 6.0 X10 3/uL Normal 2.0-7.7 [facility] Comment on above: Performed By: #### L 100.0100, L500.4050 ####[facility] [address] [place], [address] Basophils/100 WBC (Bld) 0.8 % Normal 0-1 [facility] Comment on above: Performed By: #### L 100.0100, L500.4050 ####[facility] [address] [place], [address] Eosinophils/100 WBC (Bld) 1.9 % Normal 0-5 [facility] Comment on above: Performed By: #### L 100.0100, L500.4050 ####[facility] [address] [place], [address] Erythrocyte distribution width (RBC) [Ratio] 13.6 % Normal 11.6-14.6 [facility] Comment on above: Performed By: #### L 100.0100, L500.4050 ####[facility] [address] [place], [address] Hematocrit (Bld) [Volume fraction] 39.1 % Low 40-54 [facility] Comment on above: Performed By: #### L 100.0100, L500.4050 ####[facility] [address] [place], [address] Hemoglobin (Bld) [Mass/Vol] 11.9 g/dL Low 13.0-16.5 [facility] Comment on above: Performed By: #### L 100.0100, L500.4050 ####[facility] [address] [place], [address] IG% 0.400 Normal 0.0-0.9 [facility] Comment on above: Result Comment: IG% - Immature Granulocytes (promyelocytes, myelocytes andmetamyelocytes) > 1% indicates that a LEFT SHIFT is Present. Performed By: #### L 100.0100, L500.4050 ####[facility] [address] [place], [address] Lymphocytes/100 WBC (Bld) 9.0 % Low 19-41 [facility] Comment on above: Performed By: #### L 100.0100, L500.4050 ####[facility] [address] [place], [address] MCH (RBC) [Entitic mass] 27.5 pg Normal 27.0-32.0 [facility] Comment on above: Performed By: #### L 100.0100, L500.4050 ####[facility] [address] [place], [address] MCHC (RBC) [Mass/Vol] 30.4 g/dL Low 32-36 [facility] Comment on above: Performed By: #### L 100.0100, L500.4050 ####[facility] [address] [place], [address] MCV (RBC) [Entitic vol] 90.5 fL Normal 80-94 [facility] Comment on above: Performed By: #### L 100.0100, L500.4050 ####[facility] [address] [place], [address] Monocytes/100 WBC (Bld) 6.6 % Normal 0-10 [facility] Comment on above: Performed By: #### L 100.0100, L500.4050 ####[facility] [address] [place], [address] Neutrophils/100 WBC (Bld) 81.3 % High 47-70 [facility] Comment on above: Performed By: #### L 100.0100, L500.4050 ####[facility] [address] [place], [address] Nucleated RBC (Bld) [#/Vol] 0 10*3/uL Normal 0-5 [facility] Comment on above: Performed By: #### L 100.0100, L500.4050 ####[facility] [address] [place], [address] Platelet mean volume (Bld) [Entitic vol] 9.6 fL Normal 6.2-12.0 [facility] Comment on above: Performed By: #### L 100.0100, L500.4050 ####[facility] [address] [place], [address] Platelets (Bld) [#/Vol] 375 10*3/uL Normal 150-450 [facility] Comment on above: Performed By: #### L 100.0100, L500.4050 ####[facility] [address] [place], [address] RBC (Bld) [#/Vol] 4.32 10*6/uL Low 4.6-6.2 [facility] Comment on above: Performed By: #### L 100.0100, L500.4050 ####[facility] [address] [place], [address] RDW SD 44.8 fl High 35.1-43.9 [facility] Comment on above: Performed By: #### L 100.0100, L500.4050 ####[facility] [address] [place], [address] WBC (Bld) [#/Vol] 7.4 10*3/uL Normal 4.4-11.0 [facility] Comment on above: Performed By: #### L 100.0100, L500.4050 ####[facility] [address] [place], [address] CDIFF (PCR)on 12-19-2024 CDIFF Normal [facility] Comment on above: Performed By: #### M 100.6796 ####[facility] [address] [place], [address] Comprehensive Metabolic Prof ilon 12-19-2024 Albumin [Mass/Vol] 4.3 g/dL Normal 3.4-4.8 [facility] Comment on above: Performed By: #### L 100.0100, L500.4050 ####[facility] [address] [place], [address] Albumin/Globulin [Mass ratio] 1.5 {ratio} Normal 0.9-2.4 [facility] Comment on above: Performed By: #### L 100.0100, L500.4050 ####[facility] [address] [place], [address] ALK PHOS 69 U/L Normal 40-129 [facility] Comment on above: Performed By: #### L 100.0100, L500.4050 ####[facility] [address] [place], [address] ALT [Catalytic activity/Vol] 25 U/L Normal <=46 [facility] Comment on above: Performed By: #### L 100.0100, L500.4050 ####[facility] [address] [place], [address] AST [Catalytic activity/Vol] 23 U/L Normal <=37 [facility] Comment on above: Performed By: #### L 100.0100, L500.4050 ####[facility] [address] [place], [address] Bilirubin [Mass/Vol] 0.24 mg/dL Normal 0.00-1.30 [facility] Comment on above: Performed By: #### L 100.0100, L500.4050 ####[facility] [address] [place], [address] BUN/CRE 17.6 RATIO Normal 10-20 [facility] Comment on above: Performed By: #### L 100.0100, L500.4050 ####[facility] [address] [place], [address] Calcium [Mass/Vol] 9.5 mg/dL Normal 7.6-11.0 [facility] Comment on above: Performed By: #### L 100.0100, L500.4050 ####[facility] [address] [place], [address] Chloride [Moles/Vol] 101 mmol/L Normal 98-108 [facility] Comment on above: Performed By: #### L 100.0100, L500.4050 ####[facility] [address] [place], [address] CO2 [Moles/Vol] 27.6 mmol/L Normal 21.0-32.0 [facility] Comment on above: Performed By: #### L 100.0100, L500.4050 ####[facility] [address] [place], [address] Creatinine [Mass/Vol] 1.06 mg/dL Normal 0.70-1.20 [facility] Comment on above: Performed By: #### L 100.0100, L500.4050 ####[facility] [address] [place], [address] ECRCL 58.25 ml/min Normal 50-250 [facility] Comment on above: Performed By: #### L 100.0100, L500.4050 ####[facility] [address] [place], [address] GAP 12 Normal 5-15 [facility] Comment on above: Performed By: #### L 100.0100, L500.4050 ####[facility] [address] [place], [address] GFR/1.73 sq M.predicted among non-blacks MDRD (S/P/Bld) [Vol rate/Area] 73 mL/min/{1.73_m2} Normal >60 [facility] Comment on above: Result Comment: mL/m in/1.73m2 CKD-EPI Creatinine Equation (2020) Performed By: #### L 100.0100, L500.4050 ####[facility] [address] [place], [address] Globulin (S) [Mass/Vol] 2.8 g/dL Normal 2.2-4.2 [facility] Comment on above: Performed By: #### L 100.0100, L500.4050 ####[facility] [address] [place], [address] Glucose [Mass/Vol] 109 mg/dL High 70-99 [facility] Comment on above: Performed By: #### L 100.0100, L500.4050 ####[facility] [address] [place], [address] Potassium [Moles/Vol] 3.6 mmol/L Normal 3.3-5.1 [facility] Comment on above: Performed By: #### L 100.0100, L500.4050 ####[facility] [address] [place], [address] Sodium [Moles/Vol] 141 mmol/L Normal 133-145 [facility] Comment on above: Performed By: #### L 100.0100, L500.4050 ####[facility] [address] [place], [address] T PROT 7.1 g/dL Normal 5.9-8.4 [facility] Comment on above: Performed By: #### L 100.0100, L500.4050 ####[facility] [address] [place], [address] Urea nitrogen [Mass/Vol] 19 mg/dL Normal 4-19 [facility] Comment on above: Performed By: #### L 100.0100, L500.4050 ####[facility] [address] [place], [address] ENTERIC PATHOGEN PANEL STOOL on 12-19-2024 EP PANEL Normal [facility] Comment on above: Performed By: #### M 100.637 ####[facility] [address] [place], [address] Magnetic resonance imaging r eportOrdered By: Dorian Parker on 12-19-2024 Study report [facility] Basic Metabolic Profile (BMP )on 12-18-2024 BUN/CRE 20.6 RATIO High 10-20 [facility] Comment on above: Performed By: #### L 500.2500, L100.0500 ####[facility] [address] [place], [address] Calcium [Mass/Vol] 9.7 mg/dL Normal 7.6-11.0 [facility] Comment on above: Performed By: #### L 500.2500, L100.0500 ####[facility] [address] [place], [address] Chloride [Moles/Vol] 103 mmol/L Normal 98-108 [facility] Comment on above: Performed By: #### L 500.2500, L100.0500 ####[facility] [address] [place], [address] CO2 [Moles/Vol] 26.5 mmol/L Normal 21.0-32.0 [facility] Comment on above: Performed By: #### L 500.2500, L100.0500 ####[facility] [address] [place], [address] Creatinine [Mass/Vol] 1.06 mg/dL Normal 0.70-1.20 [facility] Comment on above: Performed By: #### L 500.2500, L100.0500 ####[facility] [address] [place], [address] ECRCL 58.25 ml/min Normal 50-250 [facility] Comment on above: Performed By: #### L 500.2500, L100.0500 ####[facility] [address] [place], [address] GAP 12 Normal 5-15 [facility] Comment on above: Performed By: #### L 500.2500, L100.0500 ####[facility] [address] [place], [address] GFR/1.73 sq M.predicted among non-blacks MDRD (S/P/Bld) [Vol rate/Area] 73 mL/min/{1.73_m2} Normal >60 [facility] Comment on above: Result Comment: mL/m in/1.73m2 CKD-EPI Creatinine Equation (2020) Performed By: #### L 500.2500, L100.0500 ####[facility] [address] [place], [address] Glucose [Mass/Vol] 95 mg/dL Normal 70-99 [facility] Comment on above: Performed By: #### L 500.2500, L100.0500 ####[facility] [address] [place], [address] Potassium [Moles/Vol] 4.2 mmol/L Normal 3.3-5.1 [facility] Comment on above: Result Comment: Hemo lysis present, Results??could be affected.?? Performed By: #### L 500.2500, L100.0500 ####[facility] [address] [place], [address] Sodium [Moles/Vol] 141 mmol/L Normal 133-145 [facility] Comment on above: Performed By: #### L 500.2500, L100.0500 ####[facility] [address] [place], [address] Urea nitrogen [Mass/Vol] 22 mg/dL High 4-19 [facility] Comment on above: Performed By: #### L 500.2500, L100.0500 ####[facility] [address] [place], [address] Brain without Contraston Brain without Contrast Normal [facility] CBC-Complete Blood Cnt No Di ffon 12-18-2024 Erythrocyte distribution width (RBC) [Ratio] 13.7 % Normal 11.6-14.6 [facility] Comment on above: Performed By: #### L 500.2500, L100.0500 ####[facility] [address] [place], [address] Hematocrit (Bld) [Volume fraction] 41.9 % Normal 40-54 [facility] Comment on above: Performed By: #### L 500.2500, L100.0500 ####[facility] [address] [place], [address] Hemoglobin (Bld) [Mass/Vol] 12.8 g/dL Low 13.0-16.5 [facility] Comment on above: Performed By: #### L 500.2500, L100.0500 ####[facility] [address] [place], [address] MCH (RBC) [Entitic mass] 27.7 pg Normal 27.0-32.0 [facility] Comment on above: Performed By: #### L 500.2500, L100.0500 ####[facility] [address] [place], [address] MCHC (RBC) [Mass/Vol] 30.5 g/dL Low 32-36 [facility] Comment on above: Performed By: #### L 500.2500, L100.0500 ####[facility] [address] [place], [address] MCV (RBC) [Entitic vol] 90.7 fL Normal 80-94 [facility] Comment on above: Performed By: #### L 500.2500, L100.0500 ####[facility] [address] [place], [address] Platelet mean volume (Bld) [Entitic vol] 9.9 fL Normal 6.2-12.0 [facility] Comment on above: Performed By: #### L 500.2500, L100.0500 ####[facility] [address] [place], [address] Platelets (Bld) [#/Vol] 386 10*3/uL Normal 150-450 [facility] Comment on above: Performed By: #### L 500.2500, L100.0500 ####[facility] [address] [place], [address] RBC (Bld) [#/Vol] 4.62 10*6/uL Normal 4.6-6.2 [facility] Comment on above: Performed By: #### L 500.2500, L100.0500 ####[facility] [address] [place], [address] RDW SD 45.7 fl High 35.1-43.9 [facility] Comment on above: Performed By: #### L 500.2500, L100.0500 ####[facility] [address] [place], [address] WBC (Bld) [#/Vol] 10.4 10*3/uL Normal 4.4-11.0 [facility] Comment on above: Performed By: #### L 500.2500, L100.0500 ####[facility] [address] [place], [address] Clostridium difficile detect ion by polymerase chain reactionOrdered By: Lisha Talamantes on 12-18-2024 C. difficile DNA ALEENA+probe Ql (Unsp spec) [facility] Echo, Limited Studyon 2024 Echo, Limited Study Normal [facility] Electrocardiogram reportOrde red By: Brendan Vallejo on 12-18-2024 EKG study [facility] Other Phone: [phone] Limited echocardiogram repor tOrdered By: Milton Guajardo on 12-18-2024 Study report [facility] Work Phone: MR/CON.PCM.NEon 12-18-2024 MR/CON.PCM.NE Normal [facility] 12 Lead EKGon 12-17-2024 12 Lead EKG Normal [facility] Absolute lymphocyte countOrd ered By: Seth Pritchard on 12-17-2024 Lymphocytes Auto (Unsp spec) [#/Vol] 1.03 10*3/uL 0.83-4.51 [facility] Activated partial thrombopla stin time (aPTT) in platelet poor plasma by coagulation aOrdered By: Seth Pritchard on 12-17-2024 aPTT Coag (PPP) [Time] 24.2 s 24.1-36.2 [facility] Anion gap in Serum or Plasma Ordered By: Seth Pritchard on 12-17-2024 Anion gap [Moles/Vol] 13 mmol/L 5-15 [facility] Automated blood erythrocyte countOrdered By: Seth Pritchard on 12-17-2024 RBC (Bld) [#/Vol] 4.45 10*6/uL Low 4.6-6.2 [facility] Comment on above: Performed By: #### L 501.4021, L300.4310, L100.0100, L500.2500, L300.3900 ####[facility] [address] [place], [place], [address] Automated blood hematocrit ( percentage)Ordered By: Seth Pritchard on 12-17-2024 Hematocrit (Bld) [Volume fraction] 39.6 % Low 40-54 [facility] Comment on above: Performed By: #### L 501.4021, L300.4310, L100.0100, L500.2500, L300.3900 ####[facility] [address] [place], [place], [id number] Automated lymphocyte count a s percentage of total leukocytesOrdered By: Seth Pritchard on 12-17-2024 Lymphocytes/100 WBC Auto (Unsp spec) 12.1 % Low 19-41 [facility] BUN/creatinine ratioOrdered By: Seth Pritchard on 12-17-2024 Urea nitrogen/Creatinine [Mass ratio] 26.4 mg/mg High 10-20 [facility] Basic Metabolic Profile (BMP )on 12-17-2024 BUN/CRE 26.4 RATIO High 10-20 [facility] Comment on above: Performed By: #### L 501.4021, L300.4310, L100.0100, L500.2500, L300.3900 ####[facility] [address] [place], [address] ECRCL 52.33 ml/min Normal 50-250 [facility] Comment on above: Performed By: #### L 501.4021, L300.4310, L100.0100, L500.2500, L300.3900 ####[facility] [address] [place], [address] GAP 13 Normal 5-15 [facility] Comment on above: Performed By: #### L 501.4021, L300.4310, L100.0100, L500.2500, L300.3900 ####[facility] [address] [place], [address] Potassium [Moles/Vol] 3.6 mmol/L Normal 3.3-5.1 [facility] Comment on above: Performed By: #### L 501.4021, L300.4310, L100.0100, L500.2500, L300.3900 ####[facility] [address] [place], [address] Basophil percentageOrdered B y: Seth Francheska on 12-17-2024 Basophils/100 WBC (Bld) 1.1 % High 0-1 [facility] Comment on above: Performed By: #### L 501.4021, L300.4310, L100.0100, L500.2500, L300.3900 ####[facility] [address] [place], [address] CBC W/Diff, Automatedon 07-0 Absolute Lymph 1.03 X10 3/uL Normal 0.83-4.51 [facility] Comment on above: Performed By: #### L 501.4021, L300.4310, L100.0100, L500.2500, L300.3900 ####[facility] [address] [place], [address] Absolute Neut 6.6 X10 3/uL Normal 2.0-7.7 [facility] Comment on above: Performed By: #### L 501.4021, L300.4310, L100.0100, L500.2500, L300.3900 ####[facility] [address] [place], [address] IG% 0.400 Normal 0.0-0.9 [facility] Comment on above: Result Comment: IG% - Immature Granulocytes (promyelocytes, myelocytes andmetamyelocytes) > 1% indicates that a LEFT SHIFT is Present. Performed By: #### L 501.4021, L300.4310, L100.0100, L500.2500, L300.3900 ####[facility] [address] [place], [address] Lymphocytes/100 WBC (Bld) 12.1 % Low 19-41 [facility] Comment on above: Performed By: #### L 501.4021, L300.4310, L100.0100, L500.2500, L300.3900 ####[facility] [address] [place], [address] MCHC (RBC) [Mass/Vol] 31.3 g/dL Low 32-36 [facility] Comment on above: Performed By: #### L 501.4021, L300.4310, L100.0100, L500.2500, L300.3900 ####[facility] [address] [place], [address] Nucleated RBC (Bld) [#/Vol] 0 10*3/uL Normal 0-5 [facility] Comment on above: Performed By: #### L 501.4021, L300.4310, L100.0100, L500.2500, L300.3900 ####[facility] [address] [place], [address] Platelet mean volume (Bld) [Entitic vol] 10.0 fL Normal 6.2-12.0 [facility] Comment on above: Performed By: #### L 501.4021, L300.4310, L100.0100, L500.2500, L300.3900 ####[facility] [address] [place], [address] RDW SD 45.6 fl High 35.1-43.9 [facility] Comment on above: Performed By: #### L 501.4021, L300.4310, L100.0100, L500.2500, L300.3900 ####[facility] [address] [place], [address] Carbon dioxide, total [Moles /volume] in Central venous bloodOrdered By: Seth Pritchard on 12-17-2024 CO2 [Moles/Vol] 25.5 mmol/L Normal 21.0-32.0 [facility] Comment on above: Performed By: #### L 501.4021, L300.4310, L100.0100, L500.2500, L300.3900 ####[facility] [address] [place], [address] Chest PA and Lateralon 12-17 Chest PA and Lateral Normal [facility] Chloride assayOrdered By: Bill Pritchard on 12-17-2024 Chloride [Moles/Vol] 104 mmol/L Normal 98-108 [facility] Comment on above: Performed By: #### L 501.4021, L300.4310, L100.0100, L500.2500, L300.3900 ####[facility] [address] [place], [address] Emergency Department Summary on 12-17-2024 Emergency Department Summary Normal [facility] Eosinophil percentageOrdered By: Seth Pritchard on 12-17-2024 Eosinophils/100 WBC (Bld) 1.1 % Normal 0-5 [facility] Comment on above: Performed By: #### L 501.4021, L300.4310, L100.0100, L500.2500, L300.3900 ####[facility] [address] [place], [address] Erythrocyte distribution wid th ratioOrdered By: Seth Pritchard on 12-17-2024 Erythrocyte distribution width (RBC) [Ratio] 14.0 % Normal 11.6-14.6 [facility] Comment on above: Performed By: #### L 501.4021, L300.4310, L100.0100, L500.2500, L300.3900 ####[facility] [address] [place], [address] Erythrocyte distribution wid th standard deviationOrdered By: Seth Pritchard on 12-17-2024 Erythrocyte distribution width (RBC) [Ratio] 45.6 fl High 35.1-43.9 [facility] Glomerular filtration rate ( GFR) estimation/1.73 sq m using serum, plasma, or whole bOrdered By: Seth Pritchard on 12-17-2024 GFR/1.73 sq M.predicted among non-blacks MDRD (S/P/Bld) [Vol rate/Area] 64 mL/min/{1.73_m2} Normal >60 [facility] Comment on above: Result Comment: mL/m in/1.73m2 CKD-EPI Creatinine Equation (2020) Performed By: #### L 501.4021, L300.4310, L100.0100, L500.2500, L300.3900 ####[facility] [address] [place], [address] H AND P Exam - Hospitaliston 12-17-2024 H&P Exam - Hospitalist Normal [facility] Hemoglobin A1c percentageOrd ered By: Roman Patel on 12-17-2024 HbA1c (Bld) [Mass fraction] 5.9 % High <5.7 [facility] Comment on above: Result Comment: Norm al < 5.7 % Prediabetic 5.7 - 6.4 % Diabetic >or= 6.5 % Please note range changes. Performed By: #### L 501.9520, L501.9985 ####[facility] [address] [place], [address] Hemoglobin measurementOrdere d By: Seth Pritchard on 12-17-2024 Hemoglobin (Bld) [Mass/Vol] 12.4 g/dL Low 13.0-16.5 [facility] Comment on above: Performed By: #### L 501.4021, L300.4310, L100.0100, L500.2500, L300.3900 ####[facility] [address] [place], [address] Immature granulocytes/100 WB C Auto (Bld)Ordered By: Seth Pritchard on 12-17-2024 Immature granulocytes/100 WBC (Bld) 0.400 % 0.0-0.9 [facility] L499.0042on 12-17-2024 Trop T High Sen 23 ng/L High <=22 [facility] Comment on above: Performed By: #### L 499.0042 ####[facility] [address] [place], [address] L499.0043on 12-17-2024 Trop T High Sen 23 ng/L High <=22 [facility] Comment on above: Performed By: #### L 499.0043 ####[facility] [address] [place], [address] L501.4021on 12-17-2024 Trop T High Sen 27 ng/L High <=22 [facility] Comment on above: Performed By: #### L 501.4021, L300.4310, L100.0100, L500.2500, L300.3900 ####[facility] [address] [place], [address] MCV (mean corpuscular volume ) determinationOrdered By: Seth Pritchard on 12-17-2024 MCV (RBC) [Entitic vol] 89.0 fL Normal 80-94 [facility] Comment on above: Performed By: #### L 501.4021, L300.4310, L100.0100, L500.2500, L300.3900 ####[facility] [address] [place], [place], [address] Mean corpuscular hemoglobin (MCH) determinationOrdered By: Seth Pritchard on 12-17-2024 MCH (RBC) [Entitic mass] 27.9 pg Normal 27.0-32.0 [facility] Comment on above: Performed By: #### L 501.4021, L300.4310, L100.0100, L500.2500, L300.3900 ####[facility] [address] [place], [place], [id number] Monocyte percentageOrdered B y: Seth Pritchard on 12-17-2024 Monocytes/100 WBC (Bld) 7.8 % Normal 0-10 [facility] Comment on above: Performed By: #### L 501.4021, L300.4310, L100.0100, L500.2500, L300.3900 ####[facility] [address] [place], [place], [address] Neutrophil percentageOrdered By: Seth Pritchard on 12-17-2024 Neutrophils/100 WBC (Bld) 77.5 % High 47-70 [facility] Comment on above: Performed By: #### L 501.4021, L300.4310, L100.0100, L500.2500, L300.3900 ####[facility] [address] [place], [place], [phone] Thromboplast Timeon 12-17-2024 aPTT Coag (Bld) [Time] 24.2 s Normal 24.1-36.2 [facility] Comment on above: Performed By: #### L 501.4021, L300.4310, L100.0100, L500.2500, L300.3900 ####[facility] [address] [place], [address] Platelet countOrdered By: Bill Prithcard on 12-17-2024 Platelets (Bld) [#/Vol] 417 10*3/uL Normal 150-450 [facility] Comment on above: Performed By: #### L 501.4021, L300.4310, L100.0100, L500.2500, L300.3900 ####[facility] [address] [place], [address] Potassium measurement (mass/ volume)Ordered By: Seth Pritchard on 12-17-2024 Potassium (Unsp spec) [Mass/Vol] 3.6 mmol/L 3.3-5.1 [facility] Prothrombin Time w/INRon INR Coag (PPP) [Relative time] 0.9 {INR} Normal [facility] Comment on above: Performed By: #### L 501.4021, L300.4310, L100.0100, L500.2500, L300.3900 ####[facility] [address] [place], [address] Prothrombin timeOrdered By: Seth Pritchard on 12-17-2024 PT Coag (PPP) [Time] 12.8 s 11.7-14.9 [facility] Comment on above: Performed By: #### L 501.4021, L300.4310, L100.0100, L500.2500, L300.3900 ####[facility] [address] [place], [address] STROKE Brain/Head without Co nton 12-17-2024 STROKE Brain/Head without Cont Normal [facility] STROKE CTA Head AND Neck W/C onon 12-17-2024 STROKE CTA Head AND Neck W/Con Normal [facility] Serum creatinine measurement (mass/volume)Ordered By: Seth Pritchard on 12-17-2024 Creatinine [Mass/Vol] 1.18 mg/dL Normal 0.70-1.20 [facility] Comment on above: Performed By: #### L 501.4021, L300.4310, L100.0100, L500.2500, L300.3900 ####[facility] [address] [place], [address] Serum glucose measurement (m ass/volume)Ordered By: Seth Pritchard on 12-17-2024 Glucose [Mass/Vol] 137 mg/dL High 70-99 [facility] Comment on above: Performed By: #### L 501.4021, L300.4310, L100.0100, L500.2500, L300.3900 ####[facility] [address] [place], [address] Serum or plasma calcium luis urement (mass/volume)Ordered By: Seth Pritchard on 12-17-2024 Calcium [Mass/Vol] 9.9 mg/dL Normal 7.6-11.0 [facility] Comment on above: Performed By: #### L 501.4021, L300.4310, L100.0100, L500.2500, L300.3900 ####[facility] [address] [place], [address] Serum or plasma urea nitroge n measurement (mass/volume)Ordered By: Seth Pritchard on 12-17-2024 Urea nitrogen [Mass/Vol] 31 mg/dL High 4-19 [facility] Comment on above: Performed By: #### L 501.4021, L300.4310, L100.0100, L500.2500, L300.3900 ####[facility] [address] [place], [address] Sodium levelOrdered By: Huang Pritchard on 12-17-2024 Sodium [Moles/Vol] 142 mmol/L Normal 133-145 [facility] Comment on above: Performed By: #### L 501.4021, L300.4310, L100.0100, L500.2500, L300.3900 ####[facility] [address] [place], [address] TSH DL <= 0.005 mIU/L QnOrde red By: Roman Patel on 12-17-2024 TSH Qn 3.380 uIU/mL 0.300-4.200 [facility] Thyroid Stim Hormone (TSH)on 12-17-2024 TSH 3.380 uIU/mL Normal 0.300-4.200 [facility] Comment on above: Performed By: #### L 501.9520, L501.9906 ####[facility] [address] [place], [address] Troponin T.cardiac [Mass/vol ume] in Serum or Plasma by High sensitivity methodOrdered By: Seth Pritchard on 12-17-2024 Troponin T.cardiac High sensitivity method [Mass/Vol] 23 ng/L High <22 [facility] Troponin T.cardiac High sensitivity method [Mass/Vol] 23 ng/L High <22 [facility] Troponin T.cardiac High sensitivity method [Mass/Vol] 27 ng/L High <22 [facility] White blood cell (WBC) count Ordered By: Seth Pritchard on 12-17-2024 WBC (Bld) [#/Vol] 8.5 10*3/uL Normal 4.4-11.0 [facility] Comment on above: Performed By: #### L 501.4021, L300.4310, L100.0100, L500.2500, L300.3900 ####[facility] [address] [place], [address] Anion gap in Serum or Plasma Ordered By: Lisha Talamantes on 12-16-2024 Anion gap [Moles/Vol] 12 mmol/L 5-15 [facility] BUN/creatinine ratioOrdered By: Lisha Talamantes on 12-16-2024 Urea nitrogen/Creatinine [Mass ratio] 24.5 mg/mg High 10-20 [facility] Basic Metabolic Profile (BMP )on 12-16-2024 BUN/CRE 24.5 RATIO High 10-20 [facility] Comment on above: Performed By: #### L 500.2500 ####[facility] [address] [place], [address] Calcium [Mass/Vol] 9.4 mg/dL Normal 7.6-11.0 [facility] Comment on above: Performed By: #### L 500.2500 ####[facility] [address] [place], [address] Chloride [Moles/Vol] 102 mmol/L Normal 98-108 [facility] Comment on above: Performed By: #### L 500.2500 ####[facility] [address] [place], [address] CO2 [Moles/Vol] 25.5 mmol/L Normal 21.0-32.0 [facility] Comment on above: Performed By: #### L 500.2500 ####[facility] [address] [place], [address] Creatinine [Mass/Vol] 1.17 mg/dL Normal 0.70-1.20 [facility] Comment on above: Performed By: #### L 500.2500 ####[facility] [address] [place], [address] ECRCL 52.78 ml/min Normal 50-250 [facility] Comment on above: Performed By: #### L 500.2500 ####[facility] [address] [place], [address] GAP 12 Normal 5-15 [facility] Comment on above: Performed By: #### L 500.2500 ####[facility] [address] [place], [address] GFR/1.73 sq M.predicted among non-blacks MDRD (S/P/Bld) [Vol rate/Area] 65 mL/min/{1.73_m2} Normal >60 [facility] Comment on above: Result Comment: mL/m in/1.73m2 CKD-EPI Creatinine Equation (2020) Performed By: #### L 500.2500 ####[facility] [address] [place], [address] Glucose [Mass/Vol] 108 mg/dL High 70-99 [facility] Comment on above: Performed By: #### L 500.2500 ####[facility] [address] [place], [address] Potassium [Moles/Vol] 3.6 mmol/L Normal 3.3-5.1 [facility] Comment on above: Performed By: #### L 500.2500 ####[facility] [address] [place], [address] Sodium [Moles/Vol] 140 mmol/L Normal 133-145 [facility] Comment on above: Performed By: #### L 500.2500 ####[facility] [address] [place], [address] Urea nitrogen [Mass/Vol] 29 mg/dL High 4-19 [facility] Comment on above: Performed By: #### L 500.2500 ####[facility] [address] [place], [address] Carbon dioxide, total [Moles /volume] in Central venous bloodOrdered By: Lisha Talamantes on 12-16-2024 CO2 [Moles/Vol] 25.5 mmol/L 21.0-32.0 [facility] Chloride assayOrdered By: Sierra Talamantes on 12-16-2024 Chloride [Moles/Vol] 102 mmol/L 98-108 [facility] Culture, Blood (WB)on 2024 CUB Blood cultures x2, from two different sites No growth in 5 days. Normal [facility] Comment on above: Performed By: #### M 200.1000 ####[facility] [address] [place], [address] Glomerular filtration rate ( GFR) estimation/1.73 sq m using serum, plasma, or whole bOrdered By: Lisha Talamantes on 12-16-2024 GFR/1.73 sq M.predicted among non-blacks MDRD (S/P/Bld) [Vol rate/Area] 65 mL/min/{1.73_m2} >60 [facility] Potassium measurement (mass/ volume)Ordered By: Lisha Talamantes on 12-16-2024 Potassium (Unsp spec) [Mass/Vol] 3.6 mmol/L 3.3-5.1 [facility] Serum creatinine measurement (mass/volume)Ordered By: Lisha Talamantes on 12-16-2024 Creatinine [Mass/Vol] 1.17 mg/dL 0.70-1.20 [facility] Serum glucose measurement (m ass/volume)Ordered By: Lisha Talamantes on 12-16-2024 Glucose [Mass/Vol] 108 mg/dL High 70-99 [facility] Serum or plasma calcium luis urement (mass/volume)Ordered By: Lisha Talamantes on 12-16-2024 Calcium [Mass/Vol] 9.4 mg/dL 7.6-11.0 [facility] Serum or plasma urea nitroge n measurement (mass/volume)Ordered By: Lisha Talamantes on 12-16-2024 Urea nitrogen [Mass/Vol] 29 mg/dL High 4-19 [facility] Sodium levelOrdered By: Cecilia Talamantes on 12-16-2024 Sodium [Moles/Vol] 140 mmol/L 133-145 [facility] Absolute lymphocyte countOrd ered By: Lisha Talamantes on 12-15-2024 Lymphocytes Auto (Unsp spec) [#/Vol] 0.82 10*3/uL Low 0.83-4.51 [facility] Automated lymphocyte count a s percentage of total leukocytesOrdered By: Lisha Talamantes on 12-15-2024 Lymphocytes/100 WBC Auto (Unsp spec) 9.8 % Low 19-41 [facility] Basic Metabolic Profile (BMP )on 12-15-2024 BUN/CRE 20.1 RATIO High 10-20 [facility] Comment on above: Performed By: #### L 501.5200, L501.2300, L500.2500, L100.0100 ####[facility] [address] [place], [address] Calcium [Mass/Vol] 9.3 mg/dL Normal 7.6-11.0 [facility] Comment on above: Performed By: #### L 501.5200, L501.2300, L500.2500, L100.0100 ####[facility] [address] [place], [address] Chloride [Moles/Vol] 106 mmol/L Normal 98-108 [facility] Comment on above: Performed By: #### L 501.5200, L501.2300, L500.2500, L100.0100 ####[facility] [address] [place], [address] CO2 [Moles/Vol] 24.0 mmol/L Normal 21.0-32.0 [facility] Comment on above: Performed By: #### L 501.5200, L501.2300, L500.2500, L100.0100 ####[facility] [address] [place], [address] Creatinine [Mass/Vol] 1.10 mg/dL Normal 0.70-1.20 [facility] Comment on above: Performed By: #### L 501.5200, L501.2300, L500.2500, L100.0100 ####[facility] [address] [place], [address] ECRCL 56.14 ml/min Normal 50-250 [facility] Comment on above: Performed By: #### L 501.5200, L501.2300, L500.2500, L100.0100 ####[facility] [address] [place], [address] GAP 12 Normal 5-15 [facility] Comment on above: Performed By: #### L 501.5200, L501.2300, L500.2500, L100.0100 ####[facility] [address] [place], [address] GFR/1.73 sq M.predicted among non-blacks MDRD (S/P/Bld) [Vol rate/Area] 70 mL/min/{1.73_m2} Normal >60 [facility] Comment on above: Result Comment: mL/m in/1.73m2 CKD-EPI Creatinine Equation (2020) Performed By: #### L 501.5200, L501.2300, L500.2500, L100.0100 ####[facility] [address] [place], [address] Glucose [Mass/Vol] 97 mg/dL Normal 70-99 [facility] Comment on above: Performed By: #### L 501.5200, L501.2300, L500.2500, L100.0100 ####[facility] [address] [place], [address] Potassium [Moles/Vol] 4.1 mmol/L Normal 3.3-5.1 [facility] Comment on above: Performed By: #### L 501.5200, L501.2300, L500.2500, L100.0100 ####[facility] [address] [place], [address] Sodium [Moles/Vol] 142 mmol/L Normal 133-145 [facility] Comment on above: Performed By: #### L 501.5200, L501.2300, L500.2500, L100.0100 ####[facility] [address] [place], [address] Urea nitrogen [Mass/Vol] 22 mg/dL High 4-19 [facility] Comment on above: Performed By: #### L 501.5200, L501.2300, L500.2500, L100.0100 ####[facility] [address] [place], [address] Basophil percentageOrdered B y: Lisha Talamantes on 12-15-2024 Basophils/100 WBC (Bld) 0.2 % 0-1 [facility] CBC W/Diff, Automatedon 11-18 Absolute Lymph 0.82 X10 3/uL Low 0.83-4.51 [facility] Comment on above: Performed By: #### L 501.5200, L501.2300, L500.2500, L100.0100 ####[facility] [address] [place], [address] Absolute Neut 7.0 X10 3/uL Normal 2.0-7.7 [facility] Comment on above: Performed By: #### L 501.5200, L501.2300, L500.2500, L100.0100 ####[facility] [address] [place], [address] Basophils/100 WBC (Bld) 0.2 % Normal 0-1 [facility] Comment on above: Performed By: #### L 501.5200, L501.2300, L500.2500, L100.0100 ####[facility] [address] [place], [address] Eosinophils/100 WBC (Bld) 0.0 % Normal 0-5 [facility] Comment on above: Performed By: #### L 501.5200, L501.2300, L500.2500, L100.0100 ####[facility] [address] [place], [address] Erythrocyte distribution width (RBC) [Ratio] 13.8 % Normal 11.6-14.6 [facility] Comment on above: Performed By: #### L 501.5200, L501.2300, L500.2500, L100.0100 ####[facility] [address] [place], [address] Hematocrit (Bld) [Volume fraction] 35.6 % Low 40-54 [facility] Comment on above: Performed By: #### L 501.5200, L501.2300, L500.2500, L100.0100 ####[facility] [address] [place], [address] Hemoglobin (Bld) [Mass/Vol] 11.3 g/dL Low 13.0-16.5 [facility] Comment on above: Performed By: #### L 501.5200, L501.2300, L500.2500, L100.0100 ####[facility] [address] [place], [address] IG% 0.400 Normal 0.0-0.9 [facility] Comment on above: Result Comment: IG% - Immature Granulocytes (promyelocytes, myelocytes andmetamyelocytes) > 1% indicates that a LEFT SHIFT is Present. Performed By: #### L 501.5200, L501.2300, L500.2500, L100.0100 ####[facility] [address] [place], [address] Lymphocytes/100 WBC (Bld) 9.8 % Low 19-41 [facility] Comment on above: Performed By: #### L 501.5200, L501.2300, L500.2500, L100.0100 ####[facility] [address] [place], [address] MCH (RBC) [Entitic mass] 28.2 pg Normal 27.0-32.0 [facility] Comment on above: Performed By: #### L 501.5200, L501.2300, L500.2500, L100.0100 ####[facility] [address] [place], [address] MCHC (RBC) [Mass/Vol] 31.7 g/dL Low 32-36 [facility] Comment on above: Performed By: #### L 501.5200, L501.2300, L500.2500, L100.0100 ####[facility] [address] [place], [address] MCV (RBC) [Entitic vol] 88.8 fL Normal 80-94 [facility] Comment on above: Performed By: #### L 501.5200, L501.2300, L500.2500, L100.0100 ####[facility] [address] [place], [address] Monocytes/100 WBC (Bld) 6.3 % Normal 0-10 [facility] Comment on above: Performed By: #### L 501.5200, L501.2300, L500.2500, L100.0100 ####[facility] [address] [place], [address] Neutrophils/100 WBC (Bld) 83.3 % High 47-70 [facility] Comment on above: Performed By: #### L 501.5200, L501.2300, L500.2500, L100.0100 ####[facility] [address] [place], [address] Nucleated RBC (Bld) [#/Vol] 0 10*3/uL Normal 0-5 [facility] Comment on above: Performed By: #### L 501.5200, L501.2300, L500.2500, L100.0100 ####[facility] [address] [place], [address] Platelet mean volume (Bld) [Entitic vol] 10.0 fL Normal 6.2-12.0 [facility] Comment on above: Performed By: #### L 501.5200, L501.2300, L500.2500, L100.0100 ####[facility] [address] [place], [address] Platelets (Bld) [#/Vol] 329 10*3/uL Normal 150-450 [facility] Comment on above: Performed By: #### L 501.5200, L501.2300, L500.2500, L100.0100 ####[facility] [address] [place], [address] RBC (Bld) [#/Vol] 4.01 10*6/uL Low 4.6-6.2 [facility] Comment on above: Performed By: #### L 501.5200, L501.2300, L500.2500, L100.0100 ####[facility] [address] [place], [address] RDW SD 44.9 fl High 35.1-43.9 [facility] Comment on above: Performed By: #### L 501.5200, L501.2300, L500.2500, L100.0100 ####[facility] [address] [place], [address] WBC (Bld) [#/Vol] 8.4 10*3/uL Normal 4.4-11.0 [facility] Comment on above: Performed By: #### L 501.5200, L501.2300, L500.2500, L100.0100 ####[facility] [address] [place], [address] Eosinophil percentageOrdered By: Lisha Talamantes on 12-15-2024 Eosinophils/100 WBC (Bld) 0.0 % 0-5 [facility] Erythrocyte distribution wid th ratioOrdered By: Lisha Talamantes on 12-15-2024 Erythrocyte distribution width (RBC) [Ratio] 13.8 % 11.6-14.6 [facility] Erythrocyte distribution wid th standard deviationOrdered By: Lisha Talamantes on 12-15-2024 Erythrocyte distribution width (RBC) [Ratio] 44.9 fl High 35.1-43.9 [facility] Hematocrit Auto (Bld) [Volum e fraction]Ordered By: Lisha Talamantes on 12-15-2024 Hematocrit (Bld) [Volume fraction] 35.6 % Low 40-54 [facility] Hemoglobin measurementOrdere d By: Lisha Talamantes on 12-15-2024 Hemoglobin (Bld) [Mass/Vol] 11.3 g/dL Low 13.0-16.5 [facility] Immature granulocytes/100 WB C Auto (Bld)Ordered By: Lisha Talamantes on 12-15-2024 Immature granulocytes/100 WBC (Bld) 0.400 % 0.0-0.9 [facility] MCV (mean corpuscular volume ) determinationOrdered By: Lisha Talamantes on 12-15-2024 MCV (RBC) [Entitic vol] 88.8 fL 80-94 [facility] Magnesiumon 12-15-2024 Magnesium [Mass/Vol] 2.0 mg/dL Normal 1.5-2.2 [facility] Comment on above: Performed By: #### L 501.5200, L501.2300, L500.2500, L100.0100 ####[facility] [address] [place], [address] Magnesium measurement (mass/ volume)Ordered By: Lisha Talamantes on 12-15-2024 Magnesium (Unsp spec) [Mass/Vol] 2.0 mg/dL 1.5-2.2 [facility] Mean corpuscular hemoglobin (MCH) determinationOrdered By: Lisha Talamantes on 12-15-2024 MCH (RBC) [Entitic mass] 28.2 pg 27.0-32.0 [facility] Monocyte percentageOrdered B y: Lisha Talamantes on 12-15-2024 Monocytes/100 WBC (Bld) 6.3 % 0-10 [facility] Neutrophil percentageOrdered By: Lisha Talamantes on 12-15-2024 Neutrophils/100 WBC (Bld) 83.3 % High 47-70 [facility] Phosphoruson 12-15-2024 Phosphate [Mass/Vol] 3.3 mg/dL Normal 2.7-4.5 [facility] Comment on above: Performed By: #### L 501.5200, L501.2300, L500.2500, L100.0100 ####[facility] [address] [place], [address] Platelet countOrdered By: Sierra Talamantes on 12-15-2024 Platelets (Bld) [#/Vol] 329 10*3/uL 150-450 [facility] RBC Auto (Bld) [#/Vol]Ordere d By: Lisha Talamantes on 12-15-2024 RBC (Bld) [#/Vol] 4.01 10*6/uL Low 4.6-6.2 [facility] White blood cell (WBC) count Ordered By: Lisha Talamantes on 12-15-2024 WBC (Bld) [#/Vol] 8.4 10*3/uL 4.4-11.0 [facility] Bilirubin, totalOrdered By: Shilpa Contreras on 12-14-2024 Bilirubin [Mass/Vol] mg/dL 0.00-1.30 [facility] CBC W/Diff, Automatedon 11-18 Absolute Lymph 0.65 X10 3/uL Low 0.83-4.51 [facility] Comment on above: Performed By: #### L 300.3900, L100.0100, L500.4050 ####[facility] [address] [place], [address] Absolute Neut 3.4 X10 3/uL Normal 2.0-7.7 [facility] Comment on above: Performed By: #### L 300.3900, L100.0100, L500.4050 ####[facility] [address] [place], [address] Basophils/100 WBC (Bld) 0.2 % Normal 0-1 [facility] Comment on above: Performed By: #### L 300.3900, L100.0100, L500.4050 ####[facility] [address] [place], [address] Eosinophils/100 WBC (Bld) 0.0 % Normal 0-5 [facility] Comment on above: Performed By: #### L 300.3900, L100.0100, L500.4050 ####[facility] [address] [place], [address] Erythrocyte distribution width (RBC) [Ratio] 13.7 % Normal 11.6-14.6 [facility] Comment on above: Performed By: #### L 300.3900, L100.0100, L500.4050 ####[facility] [address] [place], [address] Hematocrit (Bld) [Volume fraction] 33.7 % Low 40-54 [facility] Comment on above: Performed By: #### L 300.3900, L100.0100, L500.4050 ####[facility] [address] [place], [address] Hemoglobin (Bld) [Mass/Vol] 10.6 g/dL Low 13.0-16.5 [facility] Comment on above: Performed By: #### L 300.3900, L100.0100, L500.4050 ####[facility] [address] [place], [address] IG% 0.200 Normal 0.0-0.9 [facility] Comment on above: Result Comment: IG% - Immature Granulocytes (promyelocytes, myelocytes andmetamyelocytes) > 1% indicates that a LEFT SHIFT is Present. Performed By: #### L 300.3900, L100.0100, L500.4050 ####[facility] [address] [place], [address] Lymphocytes/100 WBC (Bld) 15.0 % Low 19-41 [facility] Comment on above: Performed By: #### L 300.3900, L100.0100, L500.4050 ####[facility] [address] [place], [address] MCH (RBC) [Entitic mass] 27.8 pg Normal 27.0-32.0 [facility] Comment on above: Performed By: #### L 300.3900, L100.0100, L500.4050 ####[facility] [address] [place], [address] MCHC (RBC) [Mass/Vol] 31.5 g/dL Low 32-36 [facility] Comment on above: Performed By: #### L 300.3900, L100.0100, L500.4050 ####[facility] [address] [place], [address] MCV (RBC) [Entitic vol] 88.5 fL Normal 80-94 [facility] Comment on above: Performed By: #### L 300.3900, L100.0100, L500.4050 ####[facility] [address] [place], [address] Monocytes/100 WBC (Bld) 5.3 % Normal 0-10 [facility] Comment on above: Performed By: #### L 300.3900, L100.0100, L500.4050 ####[facility] [address] [place], [address] Neutrophils/100 WBC (Bld) 79.3 % High 47-70 [facility] Comment on above: Performed By: #### L 300.3900, L100.0100, L500.4050 ####[facility] [address] [place], [address] Nucleated RBC (Bld) [#/Vol] 0 10*3/uL Normal 0-5 [facility] Comment on above: Performed By: #### L 300.3900, L100.0100, L500.4050 ####[facility] [address] [place], [address] Platelet mean volume (Bld) [Entitic vol] 10.1 fL Normal 6.2-12.0 [facility] Comment on above: Performed By: #### L 300.3900, L100.0100, L500.4050 ####[facility] [address] [place], [address] Platelets (Bld) [#/Vol] 306 10*3/uL Normal 150-450 [facility] Comment on above: Performed By: #### L 300.3900, L100.0100, L500.4050 ####[facility] [address] [place], [address] RBC (Bld) [#/Vol] 3.81 10*6/uL Low 4.6-6.2 [facility] Comment on above: Performed By: #### L 300.3900, L100.0100, L500.4050 ####[facility] [address] [place], [address] RDW SD 44.5 fl High 35.1-43.9 [facility] Comment on above: Performed By: #### L 300.3900, L100.0100, L500.4050 ####[facility] [address] [place], [address] WBC (Bld) [#/Vol] 4.3 10*3/uL Low 4.4-11.0 [facility] Comment on above: Performed By: #### L 300.3900, L100.0100, L500.4050 ####[facility] [address] [place], [address] Comprehensive Metabolic Prof ilon 12-14-2024 ALK PHOS 70 U/L Normal 40-129 [facility] Comment on above: Performed By: #### L 300.3900, L100.0100, L500.4050 ####[facility] [address] [place], [address] AST [Catalytic activity/Vol] 18 U/L Normal <=37 [facility] Comment on above: Performed By: #### L 300.3900, L100.0100, L500.4050 ####[facility] [address] [place], [address] BUN/CRE 12.3 RATIO Normal 10-20 [facility] Comment on above: Performed By: #### L 300.3900, L100.0100, L500.4050 ####[facility] [address] [place], [address] Calcium [Mass/Vol] 9.5 mg/dL Normal 7.6-11.0 [facility] Comment on above: Performed By: #### L 300.3900, L100.0100, L500.4050 ####[facility] [address] [place], [address] Chloride [Moles/Vol] 105 mmol/L Normal 98-108 [facility] Comment on above: Performed By: #### L 300.3900, L100.0100, L500.4050 ####[facility] [address] [place], [address] CO2 [Moles/Vol] 24.4 mmol/L Normal 21.0-32.0 [facility] Comment on above: Performed By: #### L 300.3900, L100.0100, L500.4050 ####[facility] [address] [place], [address] Creatinine [Mass/Vol] 1.04 mg/dL Normal 0.70-1.20 [facility] Comment on above: Performed By: #### L 300.3900, L100.0100, L500.4050 ####[facility] [address] [place], [address] ECRCL 59.38 ml/min Normal 50-250 [facility] Comment on above: Performed By: #### L 300.3900, L100.0100, L500.4050 ####[facility] [address] [place], [address] GAP 13 Normal 5-15 [facility] Comment on above: Performed By: #### L 300.3900, L100.0100, L500.4050 ####[facility] [address] [place], [address] GFR/1.73 sq M.predicted among non-blacks MDRD (S/P/Bld) [Vol rate/Area] 75 mL/min/{1.73_m2} Normal >60 [facility] Comment on above: Result Comment: mL/m in/1.73m2 CKD-EPI Creatinine Equation (2020) Performed By: #### L 300.3900, L100.0100, L500.4050 ####[facility] [address] [place], [address] Glucose [Mass/Vol] 129 mg/dL High 70-99 [facility] Comment on above: Performed By: #### L 300.3900, L100.0100, L500.4050 ####[facility] [address] [place], [address] Potassium [Moles/Vol] 3.8 mmol/L Normal 3.3-5.1 [facility] Comment on above: Performed By: #### L 300.3900, L100.0100, L500.4050 ####[facility] [address] [place], [address] Sodium [Moles/Vol] 143 mmol/L Normal 133-145 [facility] Comment on above: Performed By: #### L 300.3900, L100.0100, L500.4050 ####[facility] [address] [place], [address] T BILI < 0.15 Normal 0.00-1.30 [facility] Comment on above: Performed By: #### L 300.3900, L100.0100, L500.4050 ####[facility] [address] [place], [address] T PROT 6.6 g/dL Normal 5.9-8.4 [facility] Comment on above: Performed By: #### L 300.3900, L100.0100, L500.4050 ####[facility] [address] [place], [address] Urea nitrogen [Mass/Vol] 13 mg/dL Normal 4-19 [facility] Comment on above: Performed By: #### L 300.3900, L100.0100, L500.4050 ####[facility] [address] [place], [address] No Panel InformationOrdered By: Shilpa Contreras on 12-14-2024 18 U/L <38 [facility] Prothrombin Time w/INRon INR Coag (PPP) [Relative time] 1.0 {INR} Normal [facility] Comment on above: Performed By: #### L 300.3900, L100.0100, L500.4050 ####[facility] [address] [place], [address] PT Coag (PPP) [Time] 13.5 s Normal 11.7-14.9 [facility] Comment on above: Performed By: #### L 300.3900, L100.0100, L500.4050 ####[facility] [address] [place], [address] Prothrombin timeOrdered By: Shilpa Contreras on 12-14-2024 PT Coag (PPP) [Time] 13.5 s 11.7-14.9 [facility] RESPIRATORY PANEL MOLECULARo n 12-14-2024 RP PANEL Normal [facility] Comment on above: Performed By: #### M 100.638 ####[facility] [address] [place], [address] Serum globulin measurementOr dered By: Shilpa Contreras on 12-14-2024 Globulin (S) [Mass/Vol] 2.5 g/dL 2.2-4.2 [facility] Comment on above: Performed By: #### L 300.3900, L100.0100, L500.4050 ####[facility] [address] [place], [address] Serum or plasma alanine saul otransferase (ALT) measurementOrdered By: Shilpa Ben on 12-14-2024 ALT [Catalytic activity/Vol] 16 U/L <47 [facility] Comment on above: Performed By: #### L 300.3900, L100.0100, L500.4050 ####[facility] [address] [place], [address] Serum or plasma albumin luis urement (mass/volume)Ordered By: Shilpa Contreras on 12-14-2024 Albumin [Mass/Vol] 4.0 g/dL 3.4-4.8 [facility] Comment on above: Performed By: #### L 300.3900, L100.0100, L500.4050 ####[facility] [address] [place], [address] Serum or plasma albumin/glob ulin mass ratioOrdered By: Shilpa Ben on 12-14-2024 Albumin/Globulin [Mass ratio] 1.6 {ratio} 0.9-2.4 [facility] Comment on above: Performed By: #### L 300.3900, L100.0100, L500.4050 ####[facility] [address] [place], [address] Serum or plasma alkaline kathleen sphatase measurementOrdered By: Shipla White on 12-14-2024 ALP [Catalytic activity/Vol] 70 U/L 40-129 [facility] Total proteinOrdered By: Aut umn White on 12-14-2024 Protein [Mass/Vol] 6.6 g/dL 5.9-8.4 [facility] Absolute lymphocyte countOrd ered By: Remus Ungkevin on 12-13-2024 Lymphocytes Auto (Unsp spec) [#/Vol] 1.16 10*3/uL 0.83-4.51 [facility] Absolute neutrophil countOrd ered By: Remus Ungkevin on 12-13-2024 Neutrophils (Bld) [#/Vol] 4.0 10*3/uL 2.0-7.7 [facility] Anion gap in Serum or Plasma Ordered By: Remus Aaron on 12-13-2024 Anion gap [Moles/Vol] 13 mmol/L 5-15 [facility] Automated lymphocyte count a s percentage of total leukocytesOrdered By: Charis Walker on 12-13-2024 Lymphocytes/100 WBC Auto (Unsp spec) 19.5 % 19-41 [facility] BUN/creatinine ratioOrdered By: [facility] on 12-13-2024 Urea nitrogen/Creatinine [Mass ratio] 11.0 mg/mg 10-20 [facility] Basic Metabolic Profile (BMP )on 12-13-2024 BUN/CRE 11.0 RATIO Normal - [facility] Comment on above: Performed By: #### L 100.0100, L500.2500 ####[facility] [address] [place], [address] Calcium [Mass/Vol] 9.7 mg/dL Normal 7.6-11.0 [facility] Comment on above: Performed By: #### L 100.0100, L500.2500 ####[facility] [address] [place], [address] Chloride [Moles/Vol] 104 mmol/L Normal 98-108 [facility] Comment on above: Performed By: #### L 100.0100, L500.2500 ####[facility] [address] [place], [address] CO2 [Moles/Vol] 24.4 mmol/L Normal 21.0-32.0 [facility] Comment on above: Performed By: #### L 100.0100, L500.2500 ####[facility] [address] [place], [address] Creatinine [Mass/Vol] 1.11 mg/dL Normal 0.70-1.20 [facility] Comment on above: Performed By: #### L 100.0100, L500.2500 ####[facility] [address] [place], [address] ECRCL 55.63 ml/min Normal 50-250 [facility] Comment on above: Performed By: #### L 100.0100, L500.2500 ####[facility] [address] [place], [address] GAP 13 Normal 5-15 [facility] Comment on above: Performed By: #### L 100.0100, L500.2500 ####[facility] [address] [place], [address] GFR/1.73 sq M.predicted among non-blacks MDRD (S/P/Bld) [Vol rate/Area] 69 mL/min/{1.73_m2} Normal >60 [facility] Comment on above: Result Comment: mL/m in/1.73m2 CKD-EPI Creatinine Equation (2020) Performed By: #### L 100.0100, L500.2500 ####[facility] [address] [place], [address] Glucose [Mass/Vol] 102 mg/dL High 70-99 [facility] Comment on above: Performed By: #### L 100.0100, L500.2500 ####[facility] [address] [place], [address] Potassium [Moles/Vol] 3.7 mmol/L Normal 3.3-5.1 [facility] Comment on above: Performed By: #### L 100.0100, L500.2500 ####[facility] [address] [place], [address] Sodium [Moles/Vol] 141 mmol/L Normal 133-145 [facility] Comment on above: Performed By: #### L 100.0100, L500.2500 ####[facility] [address] [place], [address] Urea nitrogen [Mass/Vol] 12 mg/dL Normal 4-19 [facility] Comment on above: Performed By: #### L 100.0100, L500.2500 ####[facility] [address] [place], [address] Basophil percentageOrdered B y: Remus Ungur on 12-13-2024 Basophils/100 WBC (Bld) 1.0 % 0-1 [facility] Blood cultureOrdered By: Rem us Ungur on 12-13-2024 Bacteria identified Cx Nom (Bld) No growth in 5 days. [facility] Bacteria identified Cx Nom (Bld) No growth in 5 days. [facility] CBC W/Diff, Automatedon - Absolute Lymph 1.16 X10 3/uL Normal 0.83-4.51 [facility] Comment on above: Performed By: #### L 100.0100, L500.2500 ####[facility] [address] [place], [address] Absolute Neut 4.0 X10 3/uL Normal 2.0-7.7 [facility] Comment on above: Performed By: #### L 100.0100, L500.2500 ####[facility] [address] [place], [address] Basophils/100 WBC (Bld) 1.0 % Normal 0-1 [facility] Comment on above: Performed By: #### L 100.0100, L500.2500 ####[facility] [address] [place], [address] Eosinophils/100 WBC (Bld) 3.0 % Normal 0-5 [facility] Comment on above: Performed By: #### L 100.0100, L500.2500 ####[facility] [address] [place], [address] Erythrocyte distribution width (RBC) [Ratio] 13.7 % Normal 11.6-14.6 [facility] Comment on above: Performed By: #### L 100.0100, L500.2500 ####[facility] [address] [place], [address] Hematocrit (Bld) [Volume fraction] 37.5 % Low 40-54 [facility] Comment on above: Performed By: #### L 100.0100, L500.2500 ####[facility] [address] [place], [address] Hemoglobin (Bld) [Mass/Vol] 11.5 g/dL Low 13.0-16.5 [facility] Comment on above: Performed By: #### L 100.0100, L500.2500 ####[facility] [address] [place], [address] IG% 0.300 Normal 0.0-0.9 [facility] Comment on above: Result Comment: IG% - Immature Granulocytes (promyelocytes, myelocytes andmetamyelocytes) > 1% indicates that a LEFT SHIFT is Present. Performed By: #### L 100.0100, L500.2500 ####[facility] [address] [place], [address] Lymphocytes/100 WBC (Bld) 19.5 % Normal 19-41 [facility] Comment on above: Performed By: #### L 100.0100, L500.2500 ####[facility] [address] [place], [address] MCH (RBC) [Entitic mass] 27.7 pg Normal 27.0-32.0 [facility] Comment on above: Performed By: #### L 100.0100, L500.2500 ####[facility] [address] [place], [address] MCHC (RBC) [Mass/Vol] 30.7 g/dL Low 32-36 [facility] Comment on above: Performed By: #### L 100.0100, L500.2500 ####[facility] [address] [place], [address] MCV (RBC) [Entitic vol] 90.4 fL Normal 80-94 [facility] Comment on above: Performed By: #### L 100.0100, L500.2500 ####[facility] [address] [place], [address] Monocytes/100 WBC (Bld) 8.9 % Normal 0-10 [facility] Comment on above: Performed By: #### L 100.0100, L500.2500 ####[facility] [address] [place], [address] Neutrophils/100 WBC (Bld) 67.3 % Normal 47-70 [facility] Comment on above: Performed By: #### L 100.0100, L500.2500 ####[facility] [address] [place], [address] Nucleated RBC (Bld) [#/Vol] 0 10*3/uL Normal 0-5 [facility] Comment on above: Performed By: #### L 100.0100, L500.2500 ####[facility] [address] [place], [address] Platelet mean volume (Bld) [Entitic vol] 9.7 fL Normal 6.2-12.0 [facility] Comment on above: Performed By: #### L 100.0100, L500.2500 ####[facility] [address] [place], [address] Platelets (Bld) [#/Vol] 299 10*3/uL Normal 150-450 [facility] Comment on above: Performed By: #### L 100.0100, L500.2500 ####[facility] [address] [place], [address] RBC (Bld) [#/Vol] 4.15 10*6/uL Low 4.6-6.2 [facility] Comment on above: Performed By: #### L 100.0100, L500.2500 ####[facility] [address] [place], [address] RDW SD 44.8 fl High 35.1-43.9 [facility] Comment on above: Performed By: #### L 100.0100, L500.2500 ####[facility] [address] [place], [address] WBC (Bld) [#/Vol] 5.9 10*3/uL Normal 4.4-11.0 [facility] Comment on above: Performed By: #### L 100.0100, L500.2500 ####[facility] [address] [place], [address] CO2 (BldV) [Moles/Vol]Ordere d By: Shilpa Contreras on 12-13-2024 CO2 [Moles/Vol] 28 mmol/L 23-33 [facility] Carbon dioxide, total [Moles /volume] in Central venous bloodOrdered By: Charis Walker on 12-13-2024 CO2 [Moles/Vol] 24.4 mmol/L 21.0-32.0 [facility] Chest 1 View (Portable)on Chest 1 View (Portable) Normal [facility] Chloride assayOrdered By: Ame Walker on 12-13-2024 Chloride [Moles/Vol] 104 mmol/L 98-108 [facility] Emergency Department Summary on 12-13-2024 Emergency Department Summary Normal [facility] Eosinophil percentageOrdered By: Charis Walker on 12-13-2024 Eosinophils/100 WBC (Bld) 3.0 % 0-5 [facility] Erythrocyte distribution wid th ratioOrdered By: Charis Walker on 12-13-2024 Erythrocyte distribution width (RBC) [Ratio] 13.7 % 11.6-14.6 [facility] Erythrocyte distribution wid th standard deviationOrdered By: Charis Walker on 12-13-2024 Erythrocyte distribution width (RBC) [Ratio] 44.8 fl High 35.1-43.9 [facility] Glomerular filtration rate ( GFR) estimation/1.73 sq m using serum, plasma, or whole bOrdered By: Charis Walker on 12-13-2024 GFR/1.73 sq M.predicted among non-blacks MDRD (S/P/Bld) [Vol rate/Area] 69 mL/min/{1.73_m2} >60 [facility] Comment on above: mL/min/1.73m2 CKD-EP I Creatinine Equation (2020) H AND P Exam - [facility] 12-13-2024 H&P Exam - Hospitalist Normal [facility] Hematocrit Auto (Bld) [Volum e fraction]Ordered By: Charis Walker on 12-13-2024 Hematocrit (Bld) [Volume fraction] 37.5 % Low 40-54 [facility] Hemoglobin measurementOrdere d By: Charis Walker on 12-13-2024 Hemoglobin (Bld) [Mass/Vol] 11.5 g/dL Low 13.0-16.5 [facility] Immature granulocytes/100 WB C Auto (Bld)Ordered By: Charis Walker on 12-13-2024 Immature granulocytes/100 WBC (Bld) 0.300 % 0.0-0.9 [facility] Comment on above: IG% - Immature Granu locytes (promyelocytes, myelocytes and metamyelocytes) > 1% indicates that a LEFT SHIFT is Present. Influenza virus A and B and SARS-CoV-2 (COVID-19) and Respiratory syncytial virus RNAOrdered By: Charis Walker on 12-13-2024 SARS-CoV-2 (COVID-19) RNA ALEENA+probe Ql (Unsp spec) [facility] International normalized rat io (INR) calculationOrdered By: Charis Walker on 12-13-2024 INR Coag (Bld) [Relative time] 0.9 {INR} [facility] L509.7001on 12-13-2024 Procalcitonin 0.05 ng/mL Normal <=0.10 [facility] Comment on above: Result Comment: Inte rpretation:<0.10-0.25 ng/mL: Antibiotic therapy discouraged. Bacterialinfection unlikely.0.25-0.50 ng/mL: Antibiotic therapy encouraged. Bacterialinfection possible.>0.50 ng/mL: Antibiotic therapy strongly encouraged.Suggestive of presence of bacterial infection.PCT should always be interpreted in the clinical context ofthe patient. Therefore, clinicians should use the PCTresults in conjunction with other laboratory findings andclinical signs of the patient. Performed By: #### L 509.7001 ####[facility] [address] [place], [address] M100.678on 12-13-2024 M100.678 Pending SARS-CoV-2 (COVID 19) Negative INFLUENZA A Negative INFLUENZA B Negative RSV PCR Negative Normal [facility] Comment on above: Performed By: #### M 100.678 ####[facility] [address] [place], [address] MCV (mean corpuscular volume ) determinationOrdered By: Charis Walker on 12-13-2024 MCV (RBC) [Entitic vol] 90.4 fL 80-94 [facility] Mean corpuscular hemoglobin (MCH) determinationOrdered By: Charis Walker on 12-13-2024 MCH (RBC) [Entitic mass] 27.7 pg 27.0-32.0 [facility] Mean corpuscular hemoglobin concentration (MCHC) determinationOrdered By: Charis Walker on 12-13-2024 MCHC (RBC) [Mass/Vol] 30.7 g/dL Low 32-36 [facility] Mean platelet volume determi nationOrdered By: Remus Walker on 12-13-2024 Platelet mean volume (Bld) [Entitic vol] 9.7 fL 6.2-12.0 [facility] Monocyte percentageOrdered B y: Charis Walker on 12-13-2024 Monocytes/100 WBC (Bld) 8.9 % 0-10 [facility] Neutrophil percentageOrdered By: Charis Walker on 12-13-2024 Neutrophils/100 WBC (Bld) 67.3 % 47-70 [facility] No Panel InformationOrdered By: Shilpa Contreras on 12-13-2024 Blood Gas Sample Site Not entered [facility] Blood Gas Specimen Type LASHAE [facility] Oxygen Delivery Device Cannula [facility] LASHAE [facility] Not entered [facility] Cannula [facility] Nucleated red blood cell per centageOrdered By: Charis Walker on 12-13-2024 Nucleated RBC/100 WBC (Bld) [Ratio] 0 % 0-5 [facility] Platelet countOrdered By: Ame Walker on 12-13-2024 Platelets (Bld) [#/Vol] 299 10*3/uL 150-450 [facility] Potassium measurement (mass/ volume)Ordered By: Charis Walker on 12-13-2024 Potassium (Unsp spec) [Mass/Vol] 3.7 mmol/L 3.3-5.1 [facility] Procalcitonin [Mass/volume] in Serum or Plasma by ImmunoassayOrdered By: Shilpa Contreras on 12-13-2024 Procalcitonin IA [Mass/Vol] 0.05 ng/mL <0.11 [facility] Prothrombin Time w/INRon INR Coag (PPP) [Relative time] 0.9 {INR} Normal [facility] Comment on above: Performed By: #### L 300.3900 ####[facility] [address] [place], [place], [id number] PT Coag (PPP) [Time] 12.5 s Normal 11.7-14.9 [facility] Comment on above: Performed By: #### L 300.3900 ####[facility] [address] [place], [place], [id number] Prothrombin timeOrdered By: Charis Barneskevin on 12-13-2024 PT Coag (PPP) [Time] 12.5 s 11.7-14.9 [facility] RBC Auto (Bld) [#/Vol]Ordere d By: Charis Barneskevin on 12-13-2024 RBC (Bld) [#/Vol] 4.15 10*6/uL Low 4.6-6.2 [facility] Respiratory pathogens detect ion panel by molecular detection methodOrdered By: Shilpa Contreras on 12-13-2024 Respiratory pathogens DNA and RNA panel ALEENA+probe (Resp) [facility] Serum creatinine measurement (mass/volume)Ordered By: Charis Aaron on 12-13-2024 Creatinine [Mass/Vol] 1.11 mg/dL 0.70-1.20 [facility] Serum glucose measurement (m ass/volume)Ordered By: Aliyahus Walker on 12-13-2024 Glucose [Mass/Vol] 102 mg/dL High 70-99 [facility] Serum or plasma calcium luis urement (mass/volume)Ordered By: Charis Barneskevin on 12-13-2024 Calcium [Mass/Vol] 9.7 mg/dL 7.6-11.0 [facility] Serum or plasma urea nitroge n measurement (mass/volume)Ordered By: Charis Barneskevin on 12-13-2024 Urea nitrogen [Mass/Vol] 12 mg/dL 4-19 [facility] Sodium levelOrdered By: Nelson Walker on 12-13-2024 Sodium [Moles/Vol] 141 mmol/L 133-145 [facility] Venous Blood Gason 5 Blood Gas Type LASHAE Normal [facility] Comment on above: Performed By: #### L 9000.0810 ####[facility] [address] [place], [place], [id number] CO2 [Moles/Vol] 28 mmol/L Normal 23-33 [facility] Comment on above: Performed By: #### L 9000.0810 ####[facility] [address] [place], [address] FI02 4.0 Normal [facility] Comment on above: Performed By: #### L 9000.0810 ####[facility] [address] [place], [address] HCO3 (Bld) [Moles/Vol] 26 mmol/L Normal 22-26 [facility] Comment on above: Performed By: #### L 9000.0810 ####[facility] [address] [place], [address] O2 Delivery Dev Cannula Normal [facility] Comment on above: Performed By: #### L 9000.0810 ####[facility] [address] [place], [address] SITE Not entered Normal [facility] Comment on above: Performed By: #### L 9000.0810 ####[facility] [address] [place], [address] VBG BE 2 mmol/L Normal -1.0-3.5 [facility] Comment on above: Performed By: #### L 9000.0810 ####[facility] [address] [place], [address] VBG pCO2 42.7 mmHg Normal 41-51 [facility] Comment on above: Performed By: #### L 9000.0810 ####[facility] [address] [place], [address] VBG pH 7.40 Normal 7.32-7.42 [facility] Comment on above: Performed By: #### L 9000.0810 ####[facility] [address] [place], [address] VBG PO2 56 mmHg High 25-40 [facility] Comment on above: Performed By: #### L 9000.0810 ####[facility] [address] [place], [address] VBG SO2 89 High 50-70 [facility] Comment on above: Performed By: #### L 9000.0810 ####[facility] [address] [place], [place], [address] Venous blood base excess arlyn surementOrdered By: Shilpa Contreras on 12-13-2024 Base excess Calc (BldV) [Moles/Vol] 2 mmol/L -1.0-3.5 [facility] Venous blood bicarbonate arlyn surementOrdered By: Shilpa Contreras on 12-13-2024 HCO3 (Bld) [Moles/Vol] 26 mmol/L 22-26 [facility] Venous blood oxygen saturati on measurementOrdered By: Shilpa Contreras on 12-13-2024 Oxygen saturation in Blood 89 % High 50-70 [facility] Venous blood pH measurementO rdered By: Shilpa Contreras on 12-13-2024 pH (BldV) 7.40 [pH] 7.32-7.42 [facility] Venous blood partial pressur e of carbon dioxide measurementOrdered By: Shilpa Contreras on 12-13-2024 CO2 (BldV) [Partial pressure] 42.7 mm[Hg] 41-51 [facility] Venous blood partial pressur e of oxygen measurementOrdered By: Shilpa Contreras on 12-13-2024 Oxygen (BldV) [Partial pressure] 56 mm[Hg] High 25-40 [facility] White blood cell (WBC) count Ordered By: Charis Walker on 12-13-2024 WBC (Bld) [#/Vol] 5.9 10*3/uL 4.4-11.0 [facility] CBC W Auto Differential pane l (Bld)on 12-12-2024 Basophils (Bld) [#/Vol] 0.09 10*3/uL [facility] Basophils/100 WBC (Bld) 1.5 % [facility] Differential cell count method Nom (Bld) Auto [facility] Eosinophils (Bld) [#/Vol] 0.22 10*3/uL [facility] Eosinophils/100 WBC (Bld) 3.7 % [facility] Erythrocyte distribution width (RBC) [Ratio] 13.8 % 11.5 - 15.0 % [facility] Hematocrit (Bld) [Volume fraction] 38.3 % Low 39.0 - 51.0 % [facility] Hemoglobin (Bld) [Mass/Vol] 11.7 g/dL Low 13.0 - 17.0 g/dL [facility] Immature granulocytes (Bld) [#/Vol] NINF [facility] Immature granulocytes/100 WBC (Bld) 0.3 % [facility] Interpretation and review of laboratory results Abnormal [facility] Lymphocytes (Bld) [#/Vol] 0.8 10*3/uL Low [facility] Lymphocytes/100 WBC (Bld) 13.6 % [facility] MCH (RBC) [Entitic mass] 27.9 pg 26. 0 - 34.0 pg [facility] MCHC (RBC) [Mass/Vol] 30.5 g/dL 30.5 - 36.0 g/dL [facility] MCV (RBC) [Entitic vol] 91.4 fL 80.0 - 100.0 fL [facility] Monocytes (Bld) [#/Vol] 0.51 10*3/uL [facility] Monocytes/100 WBC (Bld) 8.7 % [facility] Neutrophils (Bld) [#/Vol] 4.25 10*3/uL [facility] Neutrophils/100 WBC (Bld) 72.2 % [facility] Nucleated RBC (Bld) [#/Vol] [facility] Nucleated RBC/100 WBC (Bld) [Ratio] 0 % /100 WBC [facility] Platelet mean volume (Bld) [Entitic vol] 10.5 fL 9.0 - 12.7 fL [facility] Platelets (Bld) [#/Vol] 310 10*3/uL [facility] RBC (Bld) [#/Vol] 4.19 10*6/uL Low 4.20 - 6.0 0 m/uL [facility] WBC (Bld) [#/Vol] 5.89 10*3/uL [facility] Anion gap in Serum or Plasma Ordered By: Carla Prather on 12-02-2024 Anion gap [Moles/Vol] 11 mmol/L 5-15 [facility] BUN/creatinine ratioOrdered By: Carla Prather on 12-02-2024 Urea nitrogen/Creatinine [Mass ratio] 23.5 mg/mg High 10-20 [facility] Basic Metabolic Profile (BMP )on 12-02-2024 BUN/CRE 23.5 RATIO High 10-20 [facility] Comment on above: Order Comment: 307.2 Performed By: #### L 100.0500, L500.2500, L506.1001 ####[facility] [address] [place], [address] Calcium [Mass/Vol] 9.4 mg/dL Normal 7.6-11.0 [facility] Comment on above: Order Comment: 307.2 Performed By: #### L 100.0500, L500.2500, L506.1001 ####[facility] [address] [place], [address] Chloride [Moles/Vol] 104 mmol/L Normal 98-108 [facility] Comment on above: Order Comment: 307.2 Performed By: #### L 100.0500, L500.2500, L506.1001 ####[facility] [address] [place], [address] CO2 [Moles/Vol] 25.5 mmol/L Normal 21.0-32.0 [facility] Comment on above: Order Comment: 307.2 Performed By: #### L 100.0500, L500.2500, L506.1001 ####[facility] [address] [place], [address] Creatinine [Mass/Vol] 1.21 mg/dL High 0.70-1.20 [facility] Comment on above: Order Comment: 307.2 Performed By: #### L 100.0500, L500.2500, L506.1001 ####[facility] [address] [place], [address] GAP 11 Normal 5-15 [facility] Comment on above: Order Comment: 307.2 Performed By: #### L 100.0500, L500.2500, L506.1001 ####[facility] [address] [place], [address] GFR/1.73 sq M.predicted among non-blacks MDRD (S/P/Bld) [Vol rate/Area] 62 mL/min/{1.73_m2} Normal >60 [facility] Comment on above: Order Comment: 307.2 Result Comment: mL/m in/1.73m2 CKD-EPI Creatinine Equation (2020) Performed By: #### L 100.0500, L500.2500, L506.1001 ####[facility] [address] [place], [address] Glucose [Mass/Vol] 86 mg/dL Normal 70-99 [facility] Comment on above: Order Comment: 307.2 Performed By: #### L 100.0500, L500.2500, L506.1001 ####[facility] [address] [place], [address] Potassium [Moles/Vol] 4.1 mmol/L Normal 3.3-5.1 [facility] Comment on above: Order Comment: 307.2 Performed By: #### L 100.0500, L500.2500, L506.1001 ####[facility] [address] [place], [address] Sodium [Moles/Vol] 141 mmol/L Normal 133-145 [facility] Comment on above: Order Comment: 307.2 Performed By: #### L 100.0500, L500.2500, L506.1001 ####[facility] [address] [place], [address] Urea nitrogen [Mass/Vol] 28 mg/dL High 4-19 [facility] Comment on above: Order Comment: 307.2 Performed By: #### L 100.0500, L500.2500, L506.1001 ####[facility] [address] [place], [address] CBC-Complete Blood Cnt No Di ffon 12-02-2024 Erythrocyte distribution width (RBC) [Ratio] 13.2 % Normal 11.6-14.6 [facility] Comment on above: Order Comment: 307.2 Performed By: #### L 100.0500, L500.2500, L506.1001 ####[facility] [address] [place], [address] Hematocrit (Bld) [Volume fraction] 35.2 % Low 40-54 [facility] Comment on above: Order Comment: 307.2 Performed By: #### L 100.0500, L500.2500, L506.1001 ####[facility] [address] [place], [address] Hemoglobin (Bld) [Mass/Vol] 11.1 g/dL Low 13.0-16.5 [facility] Comment on above: Order Comment: 307.2 Performed By: #### L 100.0500, L500.2500, L506.1001 ####[facility] [address] [place], [address] MCH (RBC) [Entitic mass] 28.6 pg Normal 27.0-32.0 [facility] Comment on above: Order Comment: 307.2 Performed By: #### L 100.0500, L500.2500, L506.1001 ####[facility] [address] [place], [address] MCHC (RBC) [Mass/Vol] 31.5 g/dL Low 32-36 [facility] Comment on above: Order Comment: 307.2 Performed By: #### L 100.0500, L500.2500, L506.1001 ####[facility] [address] [place], [address] MCV (RBC) [Entitic vol] 90.7 fL Normal 80-94 [facility] Comment on above: Order Comment: 307.2 Performed By: #### L 100.0500, L500.2500, L506.1001 ####[facility] [address] [place], [address] Platelet mean volume (Bld) [Entitic vol] 10.2 fL Normal 6.2-12.0 [facility] Comment on above: Order Comment: 307.2 Performed By: #### L 100.0500, L500.2500, L506.1001 ####[facility] [address] [place], [address] Platelets (Bld) [#/Vol] 314 10*3/uL Normal 150-450 [facility] Comment on above: Order Comment: 307.2 Performed By: #### L 100.0500, L500.2500, L506.1001 ####[facility] [address] [place], [address] RBC (Bld) [#/Vol] 3.88 10*6/uL Low 4.6-6.2 [facility] Comment on above: Order Comment: 307.2 Performed By: #### L 100.0500, L500.2500, L506.1001 ####[facility] [address] [place], [address] RDW SD 43.6 fl Normal 35.1-43.9 [facility] Comment on above: Order Comment: 307.2 Performed By: #### L 100.0500, L500.2500, L506.1001 ####[facility] [address] [place], [address] WBC (Bld) [#/Vol] 5.1 10*3/uL Normal 4.4-11.0 [facility] Comment on above: Order Comment: 307.2 Performed By: #### L 100.0500, L500.2500, L506.1001 ####[facility] [address] [place], [address] Carbon dioxide, total [Moles /volume] in Central venous bloodOrdered By: Carla Prather on 12-02-2024 CO2 [Moles/Vol] 25.5 mmol/L 21.0-32.0 [facility] Chloride assayOrdered By: Wilfredo Prather on 12-02-2024 Chloride [Moles/Vol] 104 mmol/L 98-108 [facility] Erythrocyte distribution wid th ratioOrdered By: Carla Prather on 12-02-2024 Erythrocyte distribution width (RBC) [Ratio] 13.2 % 11.6-14.6 [facility] Erythrocyte distribution wid th standard deviationOrdered By: Carla Prather on 12-02-2024 Erythrocyte distribution width (RBC) [Ratio] 43.6 fl 35.1-43.9 [facility] Glomerular filtration rate ( GFR) estimation/1.73 sq m using serum, plasma, or whole bOrdered By: Carla Prather on 12-02-2024 GFR/1.73 sq M.predicted among non-blacks MDRD (S/P/Bld) [Vol rate/Area] 62 mL/min/{1.73_m2} >60 [facility] Comment on above: mL/min/1.73m2 CKD-EP I Creatinine Equation (2020) Hematocrit Auto (Bld) [Volum e fraction]Ordered By: Carla Prather on 12-02-2024 Hematocrit (Bld) [Volume fraction] 35.2 % Low 40-54 [facility] Hemoglobin measurementOrdere d By: Carla Prather on 12-02-2024 Hemoglobin (Bld) [Mass/Vol] 11.1 g/dL Low 13.0-16.5 [facility] MCV (mean corpuscular volume ) determinationOrdered By: Carla Prather on 12-02-2024 MCV (RBC) [Entitic vol] 90.7 fL 80-94 [facility] Mean corpuscular hemoglobin (MCH) determinationOrdered By: Carla Prather on 12-02-2024 MCH (RBC) [Entitic mass] 28.6 pg 27.0-32.0 [facility] Mean corpuscular hemoglobin concentration (MCHC) determinationOrdered By: Carla Prather on 12-02-2024 MCHC (RBC) [Mass/Vol] 31.5 g/dL Low 32-36 [facility] Mean platelet volume determi nationOrdered By: Carla Prather on 12-02-2024 Platelet mean volume (Bld) [Entitic vol] 10.2 fL 6.2-12.0 [facility] Platelet countOrdered By: Wilfredo Prather on 12-02-2024 Platelets (Bld) [#/Vol] 314 10*3/uL 150-450 [facility] Potassium measurement (mass/ volume)Ordered By: Carla Prather on 12-02-2024 Potassium (Unsp spec) [Mass/Vol] 4.1 mmol/L 3.3-5.1 [facility] RBC Auto (Bld) [#/Vol]Ordere d By: Carla Prather on 12-02-2024 RBC (Bld) [#/Vol] 3.88 10*6/uL Low 4.6-6.2 [facility] Serum creatinine measurement (mass/volume)Ordered By: Carla Prather on 12-02-2024 Creatinine [Mass/Vol] 1.21 mg/dL High 0.70-1.20 [facility] Serum glucose measurement (m ass/volume)Ordered By: Carla Prather on 12-02-2024 Glucose [Mass/Vol] 86 mg/dL 70-99 [facility] Serum or plasma calcium luis urement (mass/volume)Ordered By: Carla Prather on 12-02-2024 Calcium [Mass/Vol] 9.4 mg/dL 7.6-11.0 [facility] Serum or plasma urea nitroge n measurement (mass/volume)Ordered By: Carla Prather on 12-02-2024 Urea nitrogen [Mass/Vol] 28 mg/dL High 4-19 [facility] Sodium levelOrdered By: Luca Prather on 12-02-2024 Sodium [Moles/Vol] 141 mmol/L 133-145 [facility] Vitamin D,25 Hydroxyon 12-02 Vitamin D 25-OH 46.6 ng/mL Normal 30-100 [facility] Comment on above: Order Comment: 307.2 Result Comment: Teri min D StatusDeficiency: <20 ng/mL (50nmol/L)Insufficiency: 20-30 ng/mL (50-75 nmol/L)Sufficiency: 30-100 ng/mL (75-250 nmol/L)Toxicity: >100 ng/mL (>250 nmol/L) Performed By: #### L 100.0500, L500.2500, L506.1001 ####[facility] [address] [place], [place], [id number] White blood cell (WBC) count Ordered By: Carla Prather on 12-02-2024 WBC (Bld) [#/Vol] 5.1 10*3/uL 4.4-11.0 [facility] Calculated very low density lipoprotein (VLDL) cholesterol measurementOrdered By: Carla Prather on 11-05-2024 Calculated very low density lipoprotein (VLDL) cholesterol measurement 13 mg/dL [facility] LDL calc ser/plasOrdered By: Carla Prather on 11-05-2024 Cholesterol in LDL [Mass/Vol] 63 mg/dL [facility] Comment on above: Wfdrotsdcr=503-876 m g/dL & Higher Uwmb=323 mg/dL or greater Lipid Profileon 11-05-2024 CHOL:HDL 2.18 Normal [facility] Comment on above: Order Comment: 307.2 Performed By: #### L 500.4100, L506.1001 ####[facility] [address] [facility] [place], [place], [address] Cholesterol [Mass/Vol] 140 mg/dL Normal <=200 [facility] Comment on above: Order Comment: 307.2 Result Comment: Chol esterol level, Desirable <200 mg/dLBorderline high cholesterol 200-239 mg/dLHigh cholesterol >=240 mg/dLRecommendations of the NCEP Adult Treatment Panel for thefollowing risk-cutoff thresholds for the [place] Americanpopulation. Performed By: #### L 500.4100, L506.1001 ####[facility] [address] [place], [address] Cholesterol in HDL [Mass/Vol] 64 mg/dL Normal [facility] Comment on above: Order Comment: 307.2 Result Comment: Yasmin onal Cholesterol Education Program (NCEP) guidelines:<40 mg/dL: Low HDL-cholesterol (major risk factor for CHD)>= 60 mg/dL: High HDL-cholesterol (negative risk factor forCHD)HDL-cholesterol is affected by a number of factors, e.g.smoking, exercise, hormones, sex and age. Performed By: #### L 500.4100, L506.1001 ####[facility] [address] [place], [address] Cholesterol in LDL [Mass/Vol] 63 mg/dL Normal [facility] Comment on above: Order Comment: 307.2 Result Comment: Bord dyyjkm=539-742 mg/dL Higher Uduo=174 mg/dL or greater Performed By: #### L 500.4100, L506.1001 ####[facility] [address] [place], [address] Cholesterol in VLDL [Mass/Vol] 13 mg/dL Normal 5-40 [facility] Comment on above: Order Comment: 307.2 Performed By: #### L 500.4100, L506.1001 ####[facility] [address] [place], [address] Triglyceride [Mass/Vol] 63 mg/dL Normal [facility] Comment on above: Order Comment: 307.2 Result Comment: The drugs N-Acetylcysteine and Metamizole may falselydepress this assay.Normal range: <150 mg/dLBorderline High: 150-199 mg/dLHigh: 200-499 mg/dLVery High: >500 mg/dL Performed By: #### L 500.4100, L506.1001 ####[facility] [address] [place], [address] Screening total cholesterol/ high density lipoprotein (HDL) cholesterol ratioOrdered By: Carla Prather on 11-05-2024 Cholesterol.total/Choles terol in HDL [Mass ratio] 2.18 {ratio} [facility] Serum or plasma cholesterol in HDL measurement (mass/volume)Ordered By: Carla Prather on 11-05-2024 Cholesterol in HDL [Mass/Vol] 64 mg/dL >40 [facility] Comment on above: National Cholesterol Education Program (NCEP) guidelines:<40 mg/dL: Low HDL-cholesterol (major risk factor for CHD)>= 60 mg/dL: High HDL-cholesterol (negative risk factor for CHD)HDL-cholesterol is affected by a number of factors, e.g. smoking, exercise, hormones, sex and age. Serum or plasma cholesterol measurement (mass/volume)Ordered By: Carla Parther on 11-05-2024 Cholesterol [Mass/Vol] 140 mg/dL <[address] [facility] Comment on above: Cholesterol level, D esirable <200 mg/dLBorderline high cholesterol 200-239 mg/dLHigh cholesterol >=240 mg/dLRecommendations of the NCEP Adult Treatment Panel for the following risk-cutoff thresholds for the [place] population. Triglycerides measurementOrd ered By: Carla Prather on 11-05-2024 Triglyceride [Mass/Vol] 63 mg/dL <199 [facility] Comment on above: The drugs N-Acetylcy steine and Metamizole may falsely depress this assay. Normal range: <150 mg/dLBorderline High: 150-199 mg/dLHigh: 200-499 mg/dLVery High: >500 mg/dL Vitamin D,25 Hydroxyon 11-05 Vitamin D 25-OH 51.2 ng/mL Normal 30-100 [facility] Comment on above: Order Comment: 307.2 Result Comment: Teri min D StatusDeficiency: <20 ng/mL (50nmol/L)Insufficiency: 20-30 ng/mL (50-75 nmol/L)Sufficiency: 30-100 ng/mL (75-250 nmol/L)Toxicity: >100 ng/mL (>250 nmol/L) Performed By: #### L 500.8640, L506.1001 ####[facility] [address] [place], [address] Lipid Profileon 11-04-2024 CHOL Normal <=200 [facility] Comment on above: Order Comment: 307-2 Result Comment: MICHOACANO ENT REFUSED-NOTFIED NURSE Performed By: #### L 500.4100 ####[facility] [address] [place], [address] CHOL:HDL Normal [facility] Comment on above: Order Comment: 307-2 Result Comment: MICHOACANO ENT REFUSED-NOTFIED NURSE Performed By: #### L 500.4100 ####[facility] [address] [place], [address] CLDL Normal [facility] Comment on above: Order Comment: 307-2 Result Comment: MICHOACANO ENT REFUSED-NOTFIED NURSE Performed By: #### L 500.4100 ####[facility] [address] [place], [address] HDL Normal [facility] Comment on above: Order Comment: 307-2 Result Comment: MICHOACANO ENT REFUSED-NOTFIED NURSE Performed By: #### L 500.4100 ####[facility] [address] [place], [address] TRIG Normal [facility] Comment on above: Order Comment: 307-2 Result Comment: MICHOACANO ENT REFUSED-NOTFIED NURSE Performed By: #### L 500.4100 ####[facility] [address] [place], [address] VLDL Normal 5-40 [facility] Comment on above: Order Comment: 307-2 Result Comment: MICHOACANO ENT REFUSED-NOTFIED NURSE Performed By: #### L 500.4100 ####[facility] [address] [place], [address] Carbamazepine (Tegretol)on 0 10-16-2024 CARBAMAZEPINE 7.1 ug/mL Normal 4.0-12.0 [facility] Comment on above: Order Comment: 300 Performed By: #### L 501.8300 ####[facility] [address] [place], [address] Serum or plasma carbamazepin e level (mass/volume)Ordered By: Carla Prather on 10-16-2024 carBAMazepine [Mass/Vol] 7.1 ug/mL 4.0-12.0 [facility] Urine Cultureon 09-08-2024 URC Normal [facility] Comment on above: Performed By: #### M 100.2200, L400.0001 ####[facility] [address] [place], [address] Anion gap in Serum or Plasma Ordered By: Celia Toribio on 09-02-2024 Anion gap [Moles/Vol] 11 mmol/L 5-15 [facility] BUN/creatinine ratioOrdered By: Celia Toribio on 09-02-2024 Urea nitrogen/Creatinine [Mass ratio] 27.0 mg/mg High 10- [facility] Basic Metabolic Profile (BMP )on 09-02-2024 BUN/CRE 27.0 RATIO High - [facility] Comment on above: Performed By: #### L 100.0100, L500.2500 ####[facility] [address] [place], [address] Calcium [Mass/Vol] 9.2 mg/dL Normal 7.6-11.0 [facility] Comment on above: Performed By: #### L 100.0100, L500.2500 ####[facility] [address] [place], [address] Chloride [Moles/Vol] 106 mmol/L Normal 98-108 [facility] Comment on above: Performed By: #### L 100.0100, L500.2500 ####[facility] [address] [place], [address] CO2 [Moles/Vol] 20.8 mmol/L Low 21.0-32.0 [facility] Comment on above: Performed By: #### L 100.0100, L500.2500 ####[facility] [address] [place], [address] Creatinine [Mass/Vol] 1.22 mg/dL High 0.70-1.20 [facility] Comment on above: Performed By: #### L 100.0100, L500.2500 ####[facility] [address] [place], [address] ECRCL 50.54 ml/min Normal 50-250 [facility] Comment on above: Performed By: #### L 100.0100, L500.2500 ####[facility] [address] [place], [address] GAP 11 Normal 5-15 [facility] Comment on above: Performed By: #### L 100.0100, L500.2500 ####[facility] [address] [place], [address] GFR/1.73 sq M.predicted among non-blacks MDRD (S/P/Bld) [Vol rate/Area] 62 mL/min/{1.73_m2} Normal >60 [facility] Comment on above: Result Comment: mL/m in/1.73m2 CKD-EPI Creatinine Equation (2020) Performed By: #### L 100.0100, L500.2500 ####[facility] [address] [place], [address] Glucose [Mass/Vol] 99 mg/dL Normal 70-99 [facility] Comment on above: Performed By: #### L 100.0100, L500.2500 ####[facility] [address] [place], [address] Potassium [Moles/Vol] 4.0 mmol/L Normal 3.3-5.1 [facility] Comment on above: Performed By: #### L 100.0100, L500.2500 ####[facility] [address] [place], [address] Sodium [Moles/Vol] 138 mmol/L Normal 133-145 [facility] Comment on above: Performed By: #### L 100.0100, L500.2500 ####[facility] [address] [place], [address] Urea nitrogen [Mass/Vol] 33 mg/dL High 4-19 [facility] Comment on above: Performed By: #### L 100.0100, L500.2500 ####[facility] [address] [place], [address] CBC W/Diff, Automatedon 08-17 Absolute Neut Normal 2.0-7.7 [facility] Comment on above: Result Comment: Canc elled via OM: MD Ordered Performed By: #### L 100.0100, L500.2500 ####[facility] [address] [place], [address] HCT Normal 40-54 [facility] Comment on above: Result Comment: Canc elled via OM: MD Ordered Performed By: #### L 100.0100, L500.2500 ####[facility] [address] [place], [address] HGB Normal 13.0-16.5 [facility] Comment on above: Result Comment: Canc elled via OM: MD Ordered Performed By: #### L 100.0100, L500.2500 ####[facility] [address] [place], [address] MCH Normal 27.0-32.0 [facility] Comment on above: Result Comment: Canc elled via OM: MD Ordered Performed By: #### L 100.0100, L500.2500 ####[facility] [address] [place], [address] MCHC Normal 32-36 [facility] Comment on above: Result Comment: Canc elled via OM: MD Ordered Performed By: #### L 100.0100, L500.2500 ####[facility] [address] [place], [address] MCV Normal 80-94 [facility] Comment on above: Result Comment: Canc elled via OM: MD Ordered Performed By: #### L 100.0100, L500.2500 ####[facility] [address] [place], [address] NEUT% Normal 47-70 [facility] Comment on above: Result Comment: Canc elled via OM: MD Ordered Performed By: #### L 100.0100, L500.2500 ####[facility] [address] [place], [address] PLT Normal 150-450 [facility] Comment on above: Result Comment: Canc elled via OM: MD Ordered Performed By: #### L 100.0100, L500.2500 ####[facility] [address] [place], [address] RBC Normal 4.6-6.2 [facility] Comment on above: Result Comment: Canc elled via OM: MD Ordered Performed By: #### L 100.0100, L500.2500 ####[facility] [address] [place], [address] RDW CV Normal 11.6-14.6 [facility] Comment on above: Result Comment: Canc elled via OM: MD Ordered Performed By: #### L 100.0100, L500.2500 ####[facility] [address] [place], [address] RDW SD Normal 35.1-43.9 [facility] Comment on above: Result Comment: Canc elled via OM: MD Ordered Performed By: #### L 100.0100, L500.2500 ####[facility] [address] [place], [address] WBC Normal 4.4-11.0 [facility] Comment on above: Result Comment: Canc elled via OM: Ordered Performed By: #### L 100.0100, L500.2500 ####[facility] [address] [place], [address] Carbon dioxide, total [Moles /volume] in Central venous bloodOrdered By: Celia Toribio on 09-02-2024 CO2 [Moles/Vol] 20.8 mmol/L Low 21.0-32.0 [facility] Chloride assayOrdered By: Yariel Toribio on 09-02-2024 Chloride [Moles/Vol] 106 mmol/L 98-108 [facility] Estimation of creatinine zeke aranceOrdered By: Celia Toribio on 09-02-2024 Estimated Creatinine Clearance Calc 50.54 ml/min 50-250 [facility] GFR/1.73 sq M.predicted gisella g non-blacks MDRD (S/P/Bld) [Vol rate/Area]Ordered By: Celia Toribio on 09-02-2024 Estimated GFR (MDRD) Non-Af Amer 62 >60 [facility] Comment on above: mL/min/1.73m2 CKD-EP I Creatinine Equation (2020) Glomerular filtration rate ( GFR) estimation/1.73 sq m using serum, plasma, or whole bOrdered By: Celia Toribio on 09-02-2024 GFR/1.73 sq M.predicted among non-blacks MDRD (S/P/Bld) [Vol rate/Area] 62 mL/min/{1.73_m2} >60 [facility] Comment on above: mL/min/1.73m2 CKD-EP I Creatinine Equation (2020) Potassium (Unsp spec) [Mass/ Vol]Ordered By: Celia Toribio on 09-02-2024 Potassium [Moles/Vol] 4.0 mmol/L 3.3-5.1 [facility] Potassium measurement (mass/ volume)Ordered By: Celia Toribio on 09-02-2024 Potassium (Unsp spec) [Mass/Vol] 4.0 mmol/L 3.3-5.1 [facility] Serum creatinine measurement (mass/volume)Ordered By: Celia Toribio on 09-02-2024 Creatinine [Mass/Vol] 1.22 mg/dL High 0.70-1.20 [facility] Serum glucose measurement (m ass/volume)Ordered By: Celia Toribio on 09-02-2024 Glucose [Mass/Vol] 99 mg/dL 70-99 [facility] Serum or plasma calcium luis urement (mass/volume)Ordered By: Celia Toribio on 09-02-2024 Calcium [Mass/Vol] 9.2 mg/dL 7.6-11.0 [facility] Serum or plasma urea nitroge n measurement (mass/volume)Ordered By: Celia Toribio on 09-02-2024 Urea nitrogen [Mass/Vol] 33 mg/dL High 4-19 [facility] Sodium levelOrdered By: Rigoberto Toribio on 09-02-2024 Sodium [Moles/Vol] 138 mmol/L 133-145 [facility] Absolute lymphocyte countOrd ered By: Celia Toribio on 09-01-2024 Lymphocytes Auto (Unsp spec) [#/Vol] 1.45 10*3/uL 0.83-4.51 [facility] Absolute neutrophil countOrd ered By: Celia Toribio on 09-01-2024 Neutrophils (Bld) [#/Vol] 4.9 10*3/uL 2.0-7.7 [facility] Automated lymphocyte count a s percentage of total leukocytesOrdered By: Celia Toribio on 09-01-2024 Lymphocytes/100 WBC Auto (Unsp spec) 20.9 % 19-41 [facility] Basic Metabolic Profile (BMP )on 09-01-2024 BUN/CRE 26.8 RATIO High 10-20 [facility] Comment on above: Order Comment: PT RE FUSED REPORTED TO ОЛЕГ STORY. ОЛЕГ STORY SAID SHE WOULDTRY TO DRAW. Performed By: #### L 500.2500 ####[facility] [address] [place], [address] Calcium [Mass/Vol] 9.6 mg/dL Normal 7.6-11.0 [facility] Comment on above: Order Comment: PT RE FUSED REPORTED TO ОЛЕГ STORY. ОЛЕГ STORY SAID SHE WOULDTRY TO DRAW. Performed By: #### L 500.2500 ####[facility] [address] [place], [address] Chloride [Moles/Vol] 102 mmol/L Normal 98-108 [facility] Comment on above: Order Comment: PT RE FUSED REPORTED TO RN JEZ. RN JEZ SAID SHE WOULDTRY TO DRAW. Performed By: #### L 500.2500 ####[facility] [address] [place], [address] CO2 [Moles/Vol] 21.9 mmol/L Normal 21.0-32.0 [facility] Comment on above: Order Comment: PT RE FUSED REPORTED TO ОЛЕГ STORY. RN JEZ SAID SHE WOULDTRY TO DRAW. Performed By: #### L 500.2500 ####[facility] [address] [place], [address] Creatinine [Mass/Vol] 1.44 mg/dL High 0.70-1.20 [facility] Comment on above: Order Comment: PT RE FUSED REPORTED TO RN JEZ. RN JEZ SAID SHE WOULDTRY TO DRAW. Performed By: #### L 500.2500 ####[facility] [address] [place], [address] ECRCL 42.38 ml/min Low 50-250 [facility] Comment on above: Order Comment: PT RE FUSED REPORTED TO RN JEZ. RN JEZ SAID SHE WOULDTRY TO DRAW. Performed By: #### L 500.2500 ####[facility] [address] [place], [address] GAP 13 Normal 5-15 [facility] Comment on above: Order Comment: PT RE FUSED REPORTED TO ОЛЕГ STORY. RN JEZ SAID SHE WOULDTRY TO DRAW. Performed By: #### L 500.2500 ####[facility] [address] [place], [address] GFR/1.73 sq M.predicted among non-blacks MDRD (S/P/Bld) [Vol rate/Area] 51 mL/min/{1.73_m2} Low >60 [facility] Comment on above: Order Comment: PT RE FUSED REPORTED TO ЛОЕГ STORY. RN JEZ SAID SHE WOULDTRY TO DRAW. Result Comment: mL/m in/1.73m2 CKD-EPI Creatinine Equation (2020) Performed By: #### L 500.2500 ####[facility] [address] [place], [address] Glucose [Mass/Vol] 118 mg/dL High 70-99 [facility] Comment on above: Order Comment: PT RE FUSED REPORTED TO ОЛЕГ STORY. RN JEZ SAID SHE WOULDTRY TO DRAW. Performed By: #### L 500.2500 ####[facility] [address] [facility] [address] Potassium [Moles/Vol] 4.1 mmol/L Normal 3.3-5.1 [facility] Comment on above: Order Comment: PT RE FUSED REPORTED TO ОЛЕГ STORY. ОЛЕГ STORY SAID SHE WOULDTRY TO DRAW. Performed By: #### L 500.2500 ####[facility] [address] [place], [address] Sodium [Moles/Vol] 137 mmol/L Normal 133-145 [facility] Comment on above: Order Comment: PT RE FUSED REPORTED TO ОЛЕГ STORY. ОЛЕГ STORY SAID SHE WOULDTRY TO DRAW. Performed By: #### L 500.2500 ####[facility] [address] [place], [address] Urea nitrogen [Mass/Vol] 39 mg/dL High 4-19 [facility] Comment on above: Order Comment: PT RE FUSED REPORTED TO ОЛЕГ STORY. ОЛЕГ STORY SAID SHE WOULDTRY TO DRAW. Performed By: #### L 500.2500 ####[facility] [address] [place], [address] BUN/CRE 30.2 RATIO High 10-20 [facility] Comment on above: Performed By: #### L 100.0100, L500.2500 ####[facility] [address] [place], [address] Calcium [Mass/Vol] 9.7 mg/dL Normal 7.6-11.0 [facility] Comment on above: Performed By: #### L 100.0100, L500.2500 ####[facility] [address] [place], [address] Chloride [Moles/Vol] 103 mmol/L Normal 98-108 [facility] Comment on above: Performed By: #### L 100.0100, L500.2500 ####[facility] [address] [place], [address] CO2 [Moles/Vol] 19.4 mmol/L Low 21.0-32.0 [facility] Comment on above: Performed By: #### L 100.0100, L500.2500 ####[facility] [address] [place], [address] Creatinine [Mass/Vol] 1.33 mg/dL High 0.70-1.20 [facility] Comment on above: Performed By: #### L 100.0100, L500.2500 ####[facility] [address] [place], [address] ECRCL 45.89 ml/min Low 50-250 [facility] Comment on above: Performed By: #### L 100.0100, L500.2500 ####[facility] [address] [place], [address] GAP 16 High 5-15 [facility] Comment on above: Performed By: #### L 100.0100, L500.2500 ####[facility] [address] [place], [address] GFR/1.73 sq M.predicted among non-blacks MDRD (S/P/Bld) [Vol rate/Area] 56 mL/min/{1.73_m2} Low >60 [facility] Comment on above: Result Comment: mL/m in/1.73m2 CKD-EPI Creatinine Equation (2020) Performed By: #### L 100.0100, L500.2500 ####[facility] [address] [place], [address] Glucose [Mass/Vol] 83 mg/dL Normal 70-99 [facility] Comment on above: Performed By: #### L 100.0100, L500.2500 ####[facility] [address] [place], [address] Potassium [Moles/Vol] 3.8 mmol/L Normal 3.3-5.1 [facility] Comment on above: Performed By: #### L 100.0100, L500.2500 ####[facility] [address] [place], [address] Sodium [Moles/Vol] 139 mmol/L Normal 133-145 [facility] Comment on above: Performed By: #### L 100.0100, L500.2500 ####[facility] [address] [place], [address] Urea nitrogen [Mass/Vol] 40 mg/dL High 4-19 [facility] Comment on above: Performed By: #### L 100.0100, L500.2500 ####[facility] [address] [place], [address] Basophil percentageOrdered B y: Celia Toribio on 09-01-2024 Basophils/100 WBC (Bld) 1.0 % 0-1 [facility] CBC W/Diff, Automatedon 08-17 Absolute Lymph 1.45 X10 3/uL Normal 0.83-4.51 [facility] Comment on above: Performed By: #### L 100.0100 ####[facility] [address] [place], [address] Absolute Neut 4.9 X10 3/uL Normal 2.0-7.7 [facility] Comment on above: Performed By: #### L 100.0100 ####[facility] [address] [place], [address] Basophils/100 WBC (Bld) 1.0 % Normal 0-1 [facility] Comment on above: Performed By: #### L 100.0100 ####[facility] [address] [place], [address] Eosinophils/100 WBC (Bld) 0.4 % Normal 0-5 [facility] Comment on above: Performed By: #### L 100.0100 ####[facility] [address] [place], [address] Erythrocyte distribution width (RBC) [Ratio] 13.3 % Normal 11.6-14.6 [facility] Comment on above: Performed By: #### L 100.0100 ####[facility] [address] [place], [address] Hematocrit (Bld) [Volume fraction] 43.2 % Normal 40-54 [facility] Comment on above: Performed By: #### L 100.0100 ####[facility] [address] [place], [address] Hemoglobin (Bld) [Mass/Vol] 14.1 g/dL Normal 13.0-16.5 [facility] Comment on above: Performed By: #### L 100.0100 ####[facility] [address] [place], [address] IG% 0.600 Normal 0.0-0.9 [facility] Comment on above: Result Comment: IG% - Immature Granulocytes (promyelocytes, myelocytes andmetamyelocytes) > 1% indicates that a LEFT SHIFT is Present. Performed By: #### L 100.0100 ####[facility] [address] [place], [address] Lymphocytes/100 WBC (Bld) 20.9 % Normal 19-41 [facility] Comment on above: Performed By: #### L 100.0100 ####[facility] [address] [place], [address] MCH (RBC) [Entitic mass] 31.4 pg Normal 27.0-32.0 [facility] Comment on above: Performed By: #### L 100.0100 ####[facility] [address] [place], [address] MCHC (RBC) [Mass/Vol] 32.6 g/dL Normal 32-36 [facility] Comment on above: Performed By: #### L 100.0100 ####[facility] [address] [place], [address] MCV (RBC) [Entitic vol] 96.2 fL High 80-94 [facility] Comment on above: Performed By: #### L 100.0100 ####[facility] [address] [place], [address] Monocytes/100 WBC (Bld) 6.2 % Normal 0-10 [facility] Comment on above: Performed By: #### L 100.0100 ####[facility] [address] [place], [address] Neutrophils/100 WBC (Bld) 70.9 % High 47-70 [facility] Comment on above: Performed By: #### L 100.0100 ####[facility] [address] [place], [address] Nucleated RBC (Bld) [#/Vol] 0 10*3/uL Normal 0-5 [facility] Comment on above: Performed By: #### L 100.0100 ####[facility] [address] [place], [address] Platelet mean volume (Bld) [Entitic vol] 9.5 fL Normal 6.2-12.0 [facility] Comment on above: Performed By: #### L 100.0100 ####[facility] [address] [place], [address] Platelets (Bld) [#/Vol] 367 10*3/uL Normal 150-450 [facility] Comment on above: Performed By: #### L 100.0100 ####[facility] [address] [place], [address] RBC (Bld) [#/Vol] 4.49 10*6/uL Low 4.6-6.2 [facility] Comment on above: Performed By: #### L 100.0100 ####[facility] [address] [place], [address] RDW SD 47.4 fl High 35.1-43.9 [facility] Comment on above: Performed By: #### L 100.0100 ####[facility] [address] [place], [address] WBC (Bld) [#/Vol] 6.9 10*3/uL Normal 4.4-11.0 [facility] Comment on above: Performed By: #### L 100.0100 ####[facility] [address] [place], [address] Absolute Neut Normal 2.0-7.7 [facility] Comment on above: Result Comment: Canc elled via OM: Ordered Performed By: #### L 100.0100, L500.2500 ####[facility] [address] [place], [address] HCT Normal 40-54 [facility] Comment on above: Result Comment: Canc elled via OM: MD Ordered Performed By: #### L 100.0100, L500.2500 ####[facility] [address] [place], [address] HGB Normal 13.0-16.5 [facility] Comment on above: Result Comment: Canc elled via OM: MD Ordered Performed By: #### L 100.0100, L500.2500 ####[facility] [address] [place], [address] MCH Normal 27.0-32.0 [facility] Comment on above: Result Comment: Canc elled via OM: MD Ordered Performed By: #### L 100.0100, L500.2500 ####[facility] [address] [place], [address] MCHC Normal 32-36 [facility] Comment on above: Result Comment: Canc elled via OM: MD Ordered Performed By: #### L 100.0100, L500.2500 ####[facility] [address] [place], [address] MCV Normal 80-94 [facility] Comment on above: Result Comment: Canc elled via OM: MD Ordered Performed By: #### L 100.0100, L500.2500 ####[facility] [address] [place], [address] NEUT% Normal 47-70 [facility] Comment on above: Result Comment: Canc elled via OM: MD Ordered Performed By: #### L 100.0100, L500.2500 ####[facility] [address] [place], [address] PLT Normal 150-450 [facility] Comment on above: Result Comment: Canc elled via OM: MD Ordered Performed By: #### L 100.0100, L500.2500 ####[facility] [address] [place], [address] RBC Normal 4.6-6.2 [facility] Comment on above: Result Comment: Canc elled via OM: MD Ordered Performed By: #### L 100.0100, L500.2500 ####[facility] [address] [place], [address] RDW CV Normal 11.6-14.6 [facility] Comment on above: Result Comment: Canc elled via OM: MD Ordered Performed By: #### L 100.0100, L500.2500 ####[facility] [address] [place], [address] RDW SD Normal 35.1-43.9 [facility] Comment on above: Result Comment: Canc elled via OM: MD Ordered Performed By: #### L 100.0100, L500.2500 ####[facility] [address] [place], [address] WBC Normal 4.4-11.0 [facility] Comment on above: Result Comment: Canc elled via OM: MD Ordered Performed By: #### L 100.0100, L500.2500 ####[facility] [address] [place], [address] Eosinophil percentageOrdered By: Celia Toribio on 09-01-2024 Eosinophils/100 WBC (Bld) 0.4 % 0-5 [facility] Erythrocyte distribution wid th ratioOrdered By: Celia Toribio on 09-01-2024 Erythrocyte distribution width (RBC) [Ratio] 13.3 % 11.6-14.6 [facility] Erythrocyte distribution wid th standard deviationOrdered By: Celia Toribio on 09-01-2024 Erythrocyte distribution width (RBC) [Entitic vol] 47.4 fL High 35.1-43.9 [facility] Erythrocyte distribution width (RBC) [Ratio] 47.4 fl High 35.1-43.9 [facility] Hematocrit Auto (Bld) [Volum e fraction]Ordered By: Celia Toribio on 09-01-2024 Hematocrit (Bld) [Volume fraction] 43.2 % 40-54 [facility] Hemoglobin measurementOrdere d By: Celia Toribio on 09-01-2024 Hemoglobin (Bld) [Mass/Vol] 14.1 g/dL 13.0-16.5 [facility] Immature granulocytes/100 WB C Auto (Bld)Ordered By: Celia Toribio on 09-01-2024 Immature granulocytes/100 WBC (Bld) 0.600 % 0.0-0.9 [facility] Comment on above: IG% - Immature Granu locytes (promyelocytes, myelocytes and metamyelocytes) > 1% indicates that a LEFT SHIFT is Present. Lymphocytes Auto (Unsp spec) [#/Vol]Ordered By: Celia Toribio on 09-01-2024 Lymphocytes (Bld) [#/Vol] 1.45 10*3/uL 0.83-4.51 [facility] Lymphocytes/100 WBC Auto (Un sp spec)Ordered By: Celia Toribio on 09-01-2024 Lymphocytes/100 WBC (Bld) 20.9 % 19-41 [facility] MCV (mean corpuscular volume ) determinationOrdered By: Celia Toribio on 09-01-2024 MCV (RBC) [Entitic vol] 96.2 fL High 80-94 [facility] Mean corpuscular hemoglobin (MCH) determinationOrdered By: Celia Toribio on 09-01-2024 MCH (RBC) [Entitic mass] 31.4 pg 27.0-32.0 [facility] Mean corpuscular hemoglobin concentration (MCHC) determinationOrdered By: Celia Toribio on 09-01-2024 MCHC (RBC) [Mass/Vol] 32.6 g/dL 32-36 [facility] Mean platelet volume determi nationOrdered By: Celia Toribio on 09-01-2024 Platelet mean volume (Bld) [Entitic vol] 9.5 fL 6.2-12.0 [facility] Monocyte percentageOrdered B y: Celia Toribio on 09-01-2024 Monocytes/100 WBC (Bld) 6.2 % 0-10 [facility] Neutrophil percentageOrdered By: Celia Toribio on 09-01-2024 Neutrophils/100 WBC (Bld) 70.9 % High 47-70 [facility] Nucleated red blood cell per centageOrdered By: Celia Toribio on 09-01-2024 Nucleated RBC/100 WBC (Bld) [Ratio] 0 % 0-5 [facility] Platelet countOrdered By: Yariel Toribio on 09-01-2024 Platelets (Bld) [#/Vol] 367 10*3/uL 150-450 [facility] RBC Auto (Bld) [#/Vol]Ordere d By: Celia Toribio on 09-01-2024 RBC (Bld) [#/Vol] 4.49 10*6/uL Low 4.6-6.2 [facility] White blood cell (WBC) count Ordered By: Celia Toribio on 09-01-2024 WBC (Bld) [#/Vol] 6.9 10*3/uL 4.4-11.0 [facility] Basic Metabolic Profile (BMP )on 08-31-2024 BUN/CRE 25.7 RATIO High 10-20 [facility] Comment on above: Performed By: #### L 500.2500, L100.0100 ####[facility] [address] [place], [address] Calcium [Mass/Vol] 10.0 mg/dL Normal 7.6-11.0 [facility] Comment on above: Performed By: #### L 500.2500, L100.0100 ####[facility] [address] [place], [address] Chloride [Moles/Vol] 102 mmol/L Normal 98-108 [facility] Comment on above: Performed By: #### L 500.2500, L100.0100 ####[facility] [address] [place], [address] CO2 [Moles/Vol] 21.5 mmol/L Normal 21.0-32.0 [facility] Comment on above: Performed By: #### L 500.2500, L100.0100 ####[facility] [address] [place], [address] Creatinine [Mass/Vol] 1.16 mg/dL Normal 0.70-1.20 [facility] Comment on above: Performed By: #### L 500.2500, L100.0100 ####[facility] [address] [place], [address] ECRCL 52.61 ml/min Normal 50-250 [facility] Comment on above: Performed By: #### L 500.2500, L100.0100 ####[facility] [address] [place], [address] GAP 15 Normal 5-15 [facility] Comment on above: Performed By: #### L 500.2500, L100.0100 ####[facility] [address] [place], [address] GFR/1.73 sq M.predicted among non-blacks MDRD (S/P/Bld) [Vol rate/Area] 66 mL/min/{1.73_m2} Normal >60 [facility] Comment on above: Result Comment: mL/m in/1.73m2 CKD-EPI Creatinine Equation (2020) Performed By: #### L 500.2500, L100.0100 ####[facility] [address] [place], [address] Glucose [Mass/Vol] 93 mg/dL Normal 70-99 [facility] Comment on above: Performed By: #### L 500.2500, L100.0100 ####[facility] [address] [place], [address] Potassium [Moles/Vol] 3.8 mmol/L Normal 3.3-5.1 [facility] Comment on above: Performed By: #### L 500.2500, L100.0100 ####[facility] [address] [place], [address] Sodium [Moles/Vol] 138 mmol/L Normal 133-145 [facility] Comment on above: Performed By: #### L 500.2500, L100.0100 ####[facility] [address] [place], [address] Urea nitrogen [Mass/Vol] 30 mg/dL High 4-19 [facility] Comment on above: Performed By: #### L 500.2500, L100.0100 ####[facility] [address] [place], [address] CBC W/Diff, Automatedon 08-17 Absolute Neut Normal 2.0-7.7 [facility] Comment on above: Result Comment: Canc elled via OM: MD Ordered Performed By: #### L 500.2500, L100.0100 ####[facility] [address] [place], [address] HCT Normal 40-54 [facility] Comment on above: Result Comment: Canc elled via OM: MD Ordered Performed By: #### L 500.2500, L100.0100 ####[facility] [address] [place], [address] HGB Normal 13.0-16.5 [facility] Comment on above: Result Comment: Canc elled via OM: MD Ordered Performed By: #### L 500.2500, L100.0100 ####[facility] [address] [place], [address] MCH Normal 27.0-32.0 [facility] Comment on above: Result Comment: Canc elled via OM: MD Ordered Performed By: #### L 500.2500, L100.0100 ####[facility] [address] [place], [address] MCHC Normal 32-36 [facility] Comment on above: Result Comment: Canc elled via OM: MD Ordered Performed By: #### L 500.2500, L100.0100 ####[facility] [address] [place], [address] MCV Normal 80-94 [facility] Comment on above: Result Comment: Canc elled via OM: MD Ordered Performed By: #### L 500.2500, L100.0100 ####[facility] [address] [place], [address] NEUT% Normal 47-70 [facility] Comment on above: Result Comment: Canc elled via OM: MD Ordered Performed By: #### L 500.2500, L100.0100 ####[facility] [address] [place], [address] PLT Normal 150-450 [facility] Comment on above: Result Comment: Canc elled via OM: MD Ordered Performed By: #### L 500.2500, L100.0100 ####[facility] [address] [place], [address] RBC Normal 4.6-6.2 [facility] Comment on above: Result Comment: Canc elled via OM: MD Ordered Performed By: #### L 500.2500, L100.0100 ####[facility] [address] [place], [address] RDW CV Normal 11.6-14.6 [facility] Comment on above: Result Comment: Canc elled via OM: MD Ordered Performed By: #### L 500.2500, L100.0100 ####[facility] [address] [place], [address] RDW SD Normal 35.1-43.9 [facility] Comment on above: Result Comment: Canc elled via OM: MD Ordered Performed By: #### L 500.2500, L100.0100 ####[facility] [address] [place], [address] WBC Normal 4.4-11.0 [facility] Comment on above: Result Comment: Canc elled via OM: MD Ordered Performed By: #### L 500.2500, L100.0100 ####[facility] [address] [place], [address] Basic Metabolic Profile (BMP )on 08-30-2024 BUN/CRE 21.4 RATIO High 10-20 [facility] Comment on above: Performed By: #### L 100.0100, L500.2500 ####[facility] [address] [place], [address] Calcium [Mass/Vol] 10.1 mg/dL Normal 7.6-11.0 [facility] Comment on above: Performed By: #### L 100.0100, L500.2500 ####[facility] [address] [place], [address] Chloride [Moles/Vol] 102 mmol/L Normal 98-108 [facility] Comment on above: Performed By: #### L 100.0100, L500.2500 ####[facility] [address] [place], [address] CO2 [Moles/Vol] 22.7 mmol/L Normal 21.0-32.0 [facility] Comment on above: Performed By: #### L 100.0100, L500.2500 ####[facility] [address] [place], [address] Creatinine [Mass/Vol] 1.21 mg/dL High 0.70-1.20 [facility] Comment on above: Performed By: #### L 100.0100, L500.2500 ####[facility] [address] [place], [address] ECRCL 51.03 ml/min Normal 50-250 [facility] Comment on above: Performed By: #### L 100.0100, L500.2500 ####[facility] [address] [place], [address] GAP 13 Normal 5-15 [facility] Comment on above: Performed By: #### L 100.0100, L500.2500 ####[facility] [address] [place], [address] GFR/1.73 sq M.predicted among non-blacks MDRD (S/P/Bld) [Vol rate/Area] 62 mL/min/{1.73_m2} Normal >60 [facility] Comment on above: Result Comment: mL/m in/1.73m2 CKD-EPI Creatinine Equation (2020) Performed By: #### L 100.0100, L500.2500 ####[facility] [address] [place], [address] Glucose [Mass/Vol] 94 mg/dL Normal 70-99 [facility] Comment on above: Performed By: #### L 100.0100, L500.2500 ####[facility] [address] [place], [address] Potassium [Moles/Vol] 4.2 mmol/L Normal 3.3-5.1 [facility] Comment on above: Performed By: #### L 100.0100, L500.2500 ####[facility] [address] [place], [address] Sodium [Moles/Vol] 138 mmol/L Normal 133-145 [facility] Comment on above: Performed By: #### L 100.0100, L500.2500 ####[facility] [address] [place], [address] Urea nitrogen [Mass/Vol] 26 mg/dL High 4-19 [facility] Comment on above: Performed By: #### L 100.0100, L500.2500 ####[facility] [address] [place], [address] CBC W/Diff, Automatedon 08-17 Absolute Lymph 1.00 X10 3/uL Normal 0.83-4.51 [facility] Comment on above: Performed By: #### L 100.0100, L500.2500 ####[facility] [address] [place], [address] Absolute Neut 3.7 X10 3/uL Normal 2.0-7.7 [facility] Comment on above: Performed By: #### L 100.0100, L500.2500 ####[facility] [address] [place], [address] Basophils/100 WBC (Bld) 1.6 % High 0-1 [facility] Comment on above: Performed By: #### L 100.0100, L500.2500 ####[facility] [address] [place], [address] Eosinophils/100 WBC (Bld) 7.8 % High 0-5 [facility] Comment on above: Performed By: #### L 100.0100, L500.2500 ####[facility] [address] [place], [address] Erythrocyte distribution width (RBC) [Ratio] 13.3 % Normal 11.6-14.6 [facility] Comment on above: Performed By: #### L 100.0100, L500.2500 ####[facility] [address] [place], [address] Hematocrit (Bld) [Volume fraction] 41.8 % Normal 40-54 [facility] Comment on above: Performed By: #### L 100.0100, L500.2500 ####[facility] [address] [place], [address] Hemoglobin (Bld) [Mass/Vol] 13.8 g/dL Normal 13.0-16.5 [facility] Comment on above: Performed By: #### L 100.0100, L500.2500 ####[facility] [address] [place], [address] IG% 0.400 Normal 0.0-0.9 [facility] Comment on above: Result Comment: IG% - Immature Granulocytes (promyelocytes, myelocytes andmetamyelocytes) > 1% indicates that a LEFT SHIFT is Present. Performed By: #### L 100.0100, L500.2500 ####[facility] [address] [place], [address] Lymphocytes/100 WBC (Bld) 17.8 % Low 19-41 [facility] Comment on above: Performed By: #### L 100.0100, L500.2500 ####[facility] [address] [place], [address] MCH (RBC) [Entitic mass] 31.9 pg Normal 27.0-32.0 [facility] Comment on above: Performed By: #### L 100.0100, L500.2500 ####[facility] [address] [place], [address] MCHC (RBC) [Mass/Vol] 33.0 g/dL Normal 32-36 [facility] Comment on above: Performed By: #### L 100.0100, L500.2500 ####[facility] [address] [place], [address] MCV (RBC) [Entitic vol] 96.5 fL High 80-94 [facility] Comment on above: Performed By: #### L 100.0100, L500.2500 ####[facility] [address] [place], [address] Monocytes/100 WBC (Bld) 7.6 % Normal 0-10 [facility] Comment on above: Performed By: #### L 100.0100, L500.2500 ####[facility] [address] [place], [address] Neutrophils/100 WBC (Bld) 64.8 % Normal 47-70 [facility] Comment on above: Performed By: #### L 100.0100, L500.2500 ####[facility] [address] [place], [address] Nucleated RBC (Bld) [#/Vol] 0 10*3/uL Normal 0-5 [facility] Comment on above: Performed By: #### L 100.0100, L500.2500 ####[facility] [address] [place], [address] Platelet mean volume (Bld) [Entitic vol] 9.7 fL Normal 6.2-12.0 [facility] Comment on above: Performed By: #### L 100.0100, L500.2500 ####[facility] [address] [place], [address] Platelets (Bld) [#/Vol] 309 10*3/uL Normal 150-450 [facility] Comment on above: Performed By: #### L 100.0100, L500.2500 ####[facility] [address] [place], [address] RBC (Bld) [#/Vol] 4.33 10*6/uL Low 4.6-6.2 [facility] Comment on above: Performed By: #### L 100.0100, L500.2500 ####[facility] [address] [place], [address] RDW SD 47.7 fl High 35.1-43.9 [facility] Comment on above: Performed By: #### L 100.0100, L500.2500 ####[facility] [address] [place], [address] WBC (Bld) [#/Vol] 5.6 10*3/uL Normal 4.4-11.0 [facility] Comment on above: Performed By: #### L 100.0100, L500.2500 ####[facility] [address] [place], [address] Consultation - Infectious Dx on 08-30-2024 Consultation - Infectious Dx Normal [facility] Basic Metabolic Profile (BMP )on 08-29-2024 BUN/CRE 24.6 RATIO High 10-20 [facility] Comment on above: Performed By: #### L 100.0100, L500.2500 ####[facility] [address] [place], [address] Calcium [Mass/Vol] 10.0 mg/dL Normal 7.6-11.0 [facility] Comment on above: Performed By: #### L 100.0100, L500.2500 ####[facility] [address] [place], [address] Chloride [Moles/Vol] 104 mmol/L Normal 98-108 [facility] Comment on above: Performed By: #### L 100.0100, L500.2500 ####[facility] [address] [place], [address] CO2 [Moles/Vol] 22.8 mmol/L Normal 21.0-32.0 [facility] Comment on above: Performed By: #### L 100.0100, L500.2500 ####[facility] [address] [place], [address] Creatinine [Mass/Vol] 1.21 mg/dL High 0.70-1.20 [facility] Comment on above: Performed By: #### L 100.0100, L500.2500 ####[facility] [address] [place], [address] ECRCL 51.03 ml/min Normal 50-250 [facility] Comment on above: Performed By: #### L 100.0100, L500.2500 ####[facility] [address] [place], [address] GAP 14 Normal 5-15 [facility] Comment on above: Performed By: #### L 100.0100, L500.2500 ####[facility] [address] [place], [address] GFR/1.73 sq M.predicted among non-blacks MDRD (S/P/Bld) [Vol rate/Area] 62 mL/min/{1.73_m2} Normal >60 [facility] Comment on above: Result Comment: mL/m in/1.73m2 CKD-EPI Creatinine Equation (2020) Performed By: #### L 100.0100, L500.2500 ####[facility] [address] [place], [address] Glucose [Mass/Vol] 91 mg/dL Normal 70-99 [facility] Comment on above: Performed By: #### L 100.0100, L500.2500 ####[facility] [address] [place], [address] Potassium [Moles/Vol] 4.1 mmol/L Normal 3.3-5.1 [facility] Comment on above: Performed By: #### L 100.0100, L500.2500 ####[facility] [address] [place], [address] Sodium [Moles/Vol] 141 mmol/L Normal 133-145 [facility] Comment on above: Performed By: #### L 100.0100, L500.2500 ####[facility] [address] [place], [address] Urea nitrogen [Mass/Vol] 30 mg/dL High 4-19 [facility] Comment on above: Performed By: #### L 100.0100, L500.2500 ####[facility] [address] [place], [address] CBC W/Diff, Automatedon 08-17 Absolute Lymph 1.17 X10 3/uL Normal 0.83-4.51 [facility] Comment on above: Performed By: #### L 100.0100, L500.2500 ####[facility] [address] [place], [address] Absolute Neut 3.1 X10 3/uL Normal 2.0-7.7 [facility] Comment on above: Performed By: #### L 100.0100, L500.2500 ####[facility] [address] [place], [address] Basophils/100 WBC (Bld) 1.3 % High 0-1 [facility] Comment on above: Performed By: #### L 100.0100, L500.2500 ####[facility] [address] [place], [address] Eosinophils/100 WBC (Bld) 8.2 % High 0-5 [facility] Comment on above: Performed By: #### L 100.0100, L500.2500 ####[facility] [address] [place], [address] Erythrocyte distribution width (RBC) [Ratio] 13.5 % Normal 11.6-14.6 [facility] Comment on above: Performed By: #### L 100.0100, L500.2500 ####[facility] [address] [place], [address] Hematocrit (Bld) [Volume fraction] 39.2 % Low 40-54 [facility] Comment on above: Performed By: #### L 100.0100, L500.2500 ####[facility] [address] [place], [address] Hemoglobin (Bld) [Mass/Vol] 12.8 g/dL Low 13.0-16.5 [facility] Comment on above: Performed By: #### L 100.0100, L500.2500 ####[facility] [address] [place], [address] IG% 0.400 Normal 0.0-0.9 [facility] Comment on above: Result Comment: IG% - Immature Granulocytes (promyelocytes, myelocytes andmetamyelocytes) > 1% indicates that a LEFT SHIFT is Present. Performed By: #### L 100.0100, L500.2500 ####[facility] [address] [place], [address] Lymphocytes/100 WBC (Bld) 22.3 % Normal 19-41 [facility] Comment on above: Performed By: #### L 100.0100, L500.2500 ####[facility] [address] [place], [address] MCH (RBC) [Entitic mass] 31.4 pg Normal 27.0-32.0 [facility] Comment on above: Performed By: #### L 100.0100, L500.2500 ####[facility] [address] [place], [address] MCHC (RBC) [Mass/Vol] 32.7 g/dL Normal 32-36 [facility] Comment on above: Performed By: #### L 100.0100, L500.2500 ####[facility] [address] [place], [address] MCV (RBC) [Entitic vol] 96.1 fL High 80-94 [facility] Comment on above: Performed By: #### L 100.0100, L500.2500 ####[facility] [address] [place], [address] Monocytes/100 WBC (Bld) 8.0 % Normal 0-10 [facility] Comment on above: Performed By: #### L 100.0100, L500.2500 ####[facility] [address] [place], [address] Neutrophils/100 WBC (Bld) 59.8 % Normal 47-70 [facility] Comment on above: Performed By: #### L 100.0100, L500.2500 ####[facility] [address] [place], [address] Nucleated RBC (Bld) [#/Vol] 0 10*3/uL Normal 0-5 [facility] Comment on above: Performed By: #### L 100.0100, L500.2500 ####[facility] [address] [place], [address] Platelet mean volume (Bld) [Entitic vol] 9.8 fL Normal 6.2-12.0 [facility] Comment on above: Performed By: #### L 100.0100, L500.2500 ####[facility] [address] [place], [address] Platelets (Bld) [#/Vol] 277 10*3/uL Normal 150-450 [facility] Comment on above: Performed By: #### L 100.0100, L500.2500 ####[facility] [address] [place], [address] RBC (Bld) [#/Vol] 4.08 10*6/uL Low 4.6-6.2 [facility] Comment on above: Performed By: #### L 100.0100, L500.2500 ####[facility] [address] [place], [address] RDW SD 47.8 fl High 35.1-43.9 [facility] Comment on above: Performed By: #### L 100.0100, L500.2500 ####[facility] [address] [place], [address] WBC (Bld) [#/Vol] 5.3 10*3/uL Normal 4.4-11.0 [facility] Comment on above: Performed By: #### L 100.0100, L500.2500 ####[facility] [address] [place], [address] Basic Metabolic Profile (BMP )on 08-28-2024 BUN/CRE 21.6 RATIO High 10-20 [facility] Comment on above: Performed By: #### L 100.0100, L500.2500 ####[facility] [address] [place], [address] Calcium [Mass/Vol] 9.8 mg/dL Normal 7.6-11.0 [facility] Comment on above: Performed By: #### L 100.0100, L500.2500 ####[facility] [address] [place], [address] Chloride [Moles/Vol] 105 mmol/L Normal 98-108 [facility] Comment on above: Performed By: #### L 100.0100, L500.2500 ####[facility] [address] [place], [address] CO2 [Moles/Vol] 21.9 mmol/L Normal 21.0-32.0 [facility] Comment on above: Performed By: #### L 100.0100, L500.2500 ####[facility] [address] [place], [address] Creatinine [Mass/Vol] 1.14 mg/dL Normal 0.70-1.20 [facility] Comment on above: Performed By: #### L 100.0100, L500.2500 ####[facility] [address] [place], [address] ECRCL 54.17 ml/min Normal 50-250 [facility] Comment on above: Performed By: #### L 100.0100, L500.2500 ####[facility] [address] [place], [address] GAP 13 Normal 5-15 [facility] Comment on above: Performed By: #### L 100.0100, L500.2500 ####[facility] [address] [place], [address] GFR/1.73 sq M.predicted among non-blacks MDRD (S/P/Bld) [Vol rate/Area] 67 mL/min/{1.73_m2} Normal >60 [facility] Comment on above: Result Comment: mL/m in/1.73m2 CKD-EPI Creatinine Equation (2020) Performed By: #### L 100.0100, L500.2500 ####[facility] [address] [place], [address] Glucose [Mass/Vol] 93 mg/dL Normal 70-99 [facility] Comment on above: Performed By: #### L 100.0100, L500.2500 ####[facility] [address] [place], [address] Potassium [Moles/Vol] 3.8 mmol/L Normal 3.3-5.1 [facility] Comment on above: Performed By: #### L 100.0100, L500.2500 ####[facility] [address] [place], [address] Sodium [Moles/Vol] 140 mmol/L Normal 133-145 [facility] Comment on above: Performed By: #### L 100.0100, L500.2500 ####[facility] [address] [place], [address] Urea nitrogen [Mass/Vol] 25 mg/dL High 4-19 [facility] Comment on above: Performed By: #### L 100.0100, L500.2500 ####[facility] [address] [place], [address] CBC W/Diff, Automatedon 08-17 Absolute Lymph 1.06 X10 3/uL Normal 0.83-4.51 [facility] Comment on above: Performed By: #### L 100.0100, L500.2500 ####[facility] [address] [place], [address] Absolute Neut 2.5 X10 3/uL Normal 2.0-7.7 [facility] Comment on above: Performed By: #### L 100.0100, L500.2500 ####[facility] [address] [place], [address] Basophils/100 WBC (Bld) 1.8 % High 0-1 [facility] Comment on above: Performed By: #### L 100.0100, L500.2500 ####[facility] [address] [place], [address] Eosinophils/100 WBC (Bld) 7.5 % High 0-5 [facility] Comment on above: Performed By: #### L 100.0100, L500.2500 ####[facility] [address] [place], [address] Erythrocyte distribution width (RBC) [Ratio] 13.3 % Normal 11.6-14.6 [facility] Comment on above: Performed By: #### L 100.0100, L500.2500 ####[facility] [address] [place], [address] Hematocrit (Bld) [Volume fraction] 39.0 % Low 40-54 [facility] Comment on above: Performed By: #### L 100.0100, L500.2500 ####[facility] [address] [place], [address] Hemoglobin (Bld) [Mass/Vol] 12.8 g/dL Low 13.0-16.5 [facility] Comment on above: Performed By: #### L 100.0100, L500.2500 ####[facility] [address] [place], [address] IG% 0.400 Normal 0.0-0.9 [facility] Comment on above: Result Comment: IG% - Immature Granulocytes (promyelocytes, myelocytes andmetamyelocytes) > 1% indicates that a LEFT SHIFT is Present. Performed By: #### L 100.0100, L500.2500 ####[facility] [address] [place], [address] Lymphocytes/100 WBC (Bld) 23.4 % Normal 19-41 [facility] Comment on above: Performed By: #### L 100.0100, L500.2500 ####[facility] [address] [place], [address] MCH (RBC) [Entitic mass] 31.1 pg Normal 27.0-32.0 [facility] Comment on above: Performed By: #### L 100.0100, L500.2500 ####[facility] [address] [place], [address] MCHC (RBC) [Mass/Vol] 32.8 g/dL Normal 32-36 [facility] Comment on above: Performed By: #### L 100.0100, L500.2500 ####[facility] [address] [place], [address] MCV (RBC) [Entitic vol] 94.7 fL High 80-94 [facility] Comment on above: Performed By: #### L 100.0100, L500.2500 ####[facility] [address] [place], [address] Monocytes/100 WBC (Bld) 11.3 % High 0-10 [facility] Comment on above: Performed By: #### L 100.0100, L500.2500 ####[facility] [address] [place], [address] Neutrophils/100 WBC (Bld) 55.6 % Normal 47-70 [facility] Comment on above: Performed By: #### L 100.0100, L500.2500 ####[facility] [address] [place], [address] Nucleated RBC (Bld) [#/Vol] 0 10*3/uL Normal 0-5 [facility] Comment on above: Performed By: #### L 100.0100, L500.2500 ####[facility] [address] [place], [address] Platelet mean volume (Bld) [Entitic vol] 9.8 fL Normal 6.2-12.0 [facility] Comment on above: Performed By: #### L 100.0100, L500.2500 ####[facility] [address] [place], [address] Platelets (Bld) [#/Vol] 279 10*3/uL Normal 150-450 [facility] Comment on above: Performed By: #### L 100.0100, L500.2500 ####[facility] [address] [place], [address] RBC (Bld) [#/Vol] 4.12 10*6/uL Low 4.6-6.2 [facility] Comment on above: Performed By: #### L 100.0100, L500.2500 ####[facility] [address] [place], [address] RDW SD 46.1 fl High 35.1-43.9 [facility] Comment on above: Performed By: #### L 100.0100, L500.2500 ####[facility] [address] [place], [address] WBC (Bld) [#/Vol] 4.5 10*3/uL Normal 4.4-11.0 [facility] Comment on above: Performed By: #### L 100.0100, L500.2500 ####[facility] [address] [place], [address] Basic Metabolic Profile (BMP )on 08-27-2024 BUN/CRE 17.2 RATIO Normal 10-20 [facility] Comment on above: Performed By: #### L 100.0100, L500.2500 ####[facility] [address] [place], [address] Calcium [Mass/Vol] 9.5 mg/dL Normal 7.6-11.0 [facility] Comment on above: Performed By: #### L 100.0100, L500.2500 ####[facility] [address] [place], [address] Chloride [Moles/Vol] 104 mmol/L Normal 98-108 [facility] Comment on above: Performed By: #### L 100.0100, L500.2500 ####[facility] [address] [place], [address] CO2 [Moles/Vol] 19.9 mmol/L Low 21.0-32.0 [facility] Comment on above: Performed By: #### L 100.0100, L500.2500 ####[facility] [address] [place], [address] Creatinine [Mass/Vol] 1.18 mg/dL Normal 0.70-1.20 [facility] Comment on above: Performed By: #### L 100.0100, L500.2500 ####[facility] [address] [place], [address] ECRCL 52.25 ml/min Normal 50-250 [facility] Comment on above: Performed By: #### L 100.0100, L500.2500 ####[facility] [address] [place], [address] GAP 14 Normal 5-15 [facility] Comment on above: Performed By: #### L 100.0100, L500.2500 ####[facility] [address] [place], [address] GFR/1.73 sq M.predicted among non-blacks MDRD (S/P/Bld) [Vol rate/Area] 64 mL/min/{1.73_m2} Normal >60 [facility] Comment on above: Result Comment: mL/m in/1.73m2 CKD-EPI Creatinine Equation (2020) Performed By: #### L 100.0100, L500.2500 ####[facility] [address] [place], [address] Glucose [Mass/Vol] 97 mg/dL Normal 70-99 [facility] Comment on above: Performed By: #### L 100.0100, L500.2500 ####[facility] [address] [place], [address] Potassium [Moles/Vol] 3.4 mmol/L Normal 3.3-5.1 [facility] Comment on above: Performed By: #### L 100.0100, L500.2500 ####[facility] [address] [place], [address] Sodium [Moles/Vol] 139 mmol/L Normal 133-145 [facility] Comment on above: Performed By: #### L 100.0100, L500.2500 ####[facility] [address] [place], [address] Urea nitrogen [Mass/Vol] 20 mg/dL High 4-19 [facility] Comment on above: Performed By: #### L 100.0100, L500.2500 ####[facility] [address] [place], [address] Bilirubin Test strip Ql (U)O rdered By: Celia Toribio on 08-27-2024 Bilirubin Ql (U) Negative Negative [facility] CBC W/Diff, Automatedon 08-17 Absolute Lymph 0.95 X10 3/uL Normal 0.83-4.51 [facility] Comment on above: Performed By: #### L 100.0100, L500.2500 ####[facility] [address] [place], [address] Absolute Neut 2.3 X10 3/uL Normal 2.0-7.7 [facility] Comment on above: Performed By: #### L 100.0100, L500.2500 ####[facility] [address] [place], [address] Basophils/100 WBC (Bld) 1.2 % High 0-1 [facility] Comment on above: Performed By: #### L 100.0100, L500.2500 ####[facility] [address] [place], [address] Eosinophils/100 WBC (Bld) 6.3 % High 0-5 [facility] Comment on above: Performed By: #### L 100.0100, L500.2500 ####[facility] [address] [place], [address] Erythrocyte distribution width (RBC) [Ratio] 13.3 % Normal 11.6-14.6 [facility] Comment on above: Performed By: #### L 100.0100, L500.2500 ####[facility] [address] [place], [address] Hematocrit (Bld) [Volume fraction] 38.4 % Low 40-54 [facility] Comment on above: Performed By: #### L 100.0100, L500.2500 ####[facility] [address] [place], [address] Hemoglobin (Bld) [Mass/Vol] 12.8 g/dL Low 13.0-16.5 [facility] Comment on above: Performed By: #### L 100.0100, L500.2500 ####[facility] [address] [place], [address] IG% 0.200 Normal 0.0-0.9 [facility] [facility] Comment on above: Result Comment: IG% - Immature Granulocytes (promyelocytes, myelocytes andmetamyelocytes) > 1% indicates that a LEFT SHIFT is Present. Performed By: #### L 100.0100, L500.2500 ####[facility] [address] [place], [address] Lymphocytes/100 WBC (Bld) 23.0 % Normal 19-41 [facility] Comment on above: Performed By: #### L 100.0100, L500.2500 ####[facility] [address] [place], [address] MCH (RBC) [Entitic mass] 31.4 pg Normal 27.0-32.0 [facility] Comment on above: Performed By: #### L 100.0100, L500.2500 ####[facility] [address] [place], [address] MCHC (RBC) [Mass/Vol] 33.3 g/dL Normal 32-36 [facility] Comment on above: Performed By: #### L 100.0100, L500.2500 ####[facility] [address] [place], [address] MCV (RBC) [Entitic vol] 94.3 fL High 80-94 [facility] Comment on above: Performed By: #### L 100.0100, L500.2500 ####[facility] [address] [place], [address] Monocytes/100 WBC (Bld) 13.1 % High 0-10 [facility] Comment on above: Performed By: #### L 100.0100, L500.2500 ####[facility] [address] [place], [address] Neutrophils/100 WBC (Bld) 56.2 % Normal 47-70 [facility] Comment on above: Performed By: #### L 100.0100, L500.2500 ####[facility] [address] [place], [address] Nucleated RBC (Bld) [#/Vol] 0 10*3/uL Normal 0-5 [facility] Comment on above: Performed By: #### L 100.0100, L500.2500 ####[facility] [address] [place], [address] Platelet mean volume (Bld) [Entitic vol] 10.0 fL Normal 6.2-12.0 [facility] Comment on above: Performed By: #### L 100.0100, L500.2500 ####[facility] [address] [place], [address] Platelets (Bld) [#/Vol] 253 10*3/uL Normal 150-450 [facility] Comment on above: Performed By: #### L 100.0100, L500.2500 ####[facility] [address] [place], [address] RBC (Bld) [#/Vol] 4.07 10*6/uL Low 4.6-6.2 [facility] Comment on above: Performed By: #### L 100.0100, L500.2500 ####[facility] [address] [place], [address] RDW SD 46.1 fl High 35.1-43.9 [facility] Comment on above: Performed By: #### L 100.0100, L500.2500 ####[facility] [address] [place], [address] WBC (Bld) [#/Vol] 4.1 10*3/uL Low 4.4-11.0 [facility] Comment on above: Performed By: #### L 100.0100, L500.2500 ####[facility] [address] [place], [address] CBC-Complete Blood Cnt No Iris solares 08-27-2024 Erythrocyte distribution width (RBC) [Ratio] 13.4 % Normal 11.6-14.6 [facility] Comment on above: Performed By: #### L 100.0500 ####[facility] [address] [place], [address] Hematocrit (Bld) [Volume fraction] 40.6 % Normal 40-54 [facility] Comment on above: Performed By: #### L 100.0500 ####[facility] [address] [place], [address] Hemoglobin (Bld) [Mass/Vol] 13.5 g/dL Normal 13.0-16.5 [facility] Comment on above: Performed By: #### L 100.0500 ####[facility] [address] [place], [address] MCH (RBC) [Entitic mass] 31.5 pg Normal 27.0-32.0 [facility] Comment on above: Performed By: #### L 100.0500 ####[facility] [address] [place], [address] MCHC (RBC) [Mass/Vol] 33.3 g/dL Normal 32-36 [facility] Comment on above: Performed By: #### L 100.0500 ####[facility] [address] [place], [address] MCV (RBC) [Entitic vol] 94.6 fL High 80-94 [facility] Comment on above: Performed By: #### L 100.0500 ####[facility] [address] [place], [address] Platelet mean volume (Bld) [Entitic vol] 9.8 fL Normal 6.2-12.0 [facility] Comment on above: Performed By: #### L 100.0500 ####[facility] [address] [place], [address] Platelets (Bld) [#/Vol] 283 10*3/uL Normal 150-450 [facility] Comment on above: Performed By: #### L 100.0500 ####[facility] [address] [place], [address] RBC (Bld) [#/Vol] 4.29 10*6/uL Low 4.6-6.2 [facility] Comment on above: Performed By: #### L 100.0500 ####[facility] [address] [place], [address] RDW SD 46.0 fl High 35.1-43.9 [facility] Comment on above: Performed By: #### L 100.0500 ####[facility] [address] [place], [address] WBC (Bld) [#/Vol] 4.9 10*3/uL Normal 4.4-11.0 [facility] Comment on above: Performed By: #### L 100.0500 ####[facility] [address] [place], [address] Epithelial cells.squamous LM Ql (Urine sed)Ordered By: Celia Toribio on 08-27-2024 Epithelial cells.squamous LM.HPF (Urine sed) [#/Area] 0 /[HPF] 0-5 [facility] Glucose Ql (U)Ordered By: Yariel Toribio on 08-27-2024 Urine Glucose (UA) Normal mg/dl Normal [facility] Ketones Test strip Ql (U)Ord ered By: Celia Toribio on 08-27-2024 Ketones Ql (U) Negative Negative [facility] Microscopic analysis of urin e for red blood cells (RBC)Ordered By: Celia Toribio on 08-27-2024 Microscopic analysis of urine for red blood cells (RBC) 0 SEEN /hpf 0-5 [facility] Urine RBC 0 SEEN /hpf 0-5 [facility] Mucus LM Ql (Urine sed)Order ed By: Celia Toribio on 08-27-2024 Mucus Ql (Urine sed) 0 SEEN /hpf [facility] Nitrite Test strip Ql (U)Ord ered By: Celia Toribio on 08-27-2024 Nitrite Ql (U) Positive High Negative [facility] Protein Test strip Ql (U)Ord ered By: Celia Toribio on 08-27-2024 Protein Ql (U) 30 mg/dl High Negative [facility] Squamous epithelial cells de tection in urine sediment by light microscopyOrdered By: Celia Toribio on 08-27-2024 Epithelial cells.squamous LM Ql (Urine sed) 0-5 SEEN /hpf 0-5 [facility] Urinalysis, Completeon 08-27 BACTERIA 4+ /hpf Normal None Seen [facility] Comment on above: Order Comment: CLEAN CATCH Performed By: #### M 100.2200, L400.0001 ####[facility] [address] [place], [address] EPI,SQUAMOUS 0-5 SEEN Normal 0-5 [facility] Comment on above: Order Comment: CLEAN CATCH Performed By: #### M 100.2200, L400.0001 ####[facility] [address] [place], [address] RBC 0 SEEN Normal 0-5 [facility] Comment on above: Order Comment: CLEAN CATCH Performed By: #### M 100.2200, L400.0001 ####[facility] [address] [place], [address] WBC 25-50 SEEN Normal 0-5 [facility] Comment on above: Order Comment: CLEAN CATCH Performed By: #### M 100.2200, L400.0001 ####[facility] [address] [place], [address] Mucus Ql (Urine sed) 0 SEEN Normal [facility] Comment on above: Order Comment: CLEAN CATCH Performed By: #### M 100.2200, L400.0001 ####[facility] [address] [place], [address] Urine blood detectionOrdered By: Celia Toribio on 08-27-2024 Urine Occult Blood Negative Negative [facility] Urine clarityOrdered By: Allyson Toribio on 08-27-2024 Clarity (U) Clear Clear [facility] Urine color determinationOrd ered By: Celia Toribio on 08-27-2024 Color (U) Yellow Yellow [facility] Urine cultureOrdered By: Allyson Toribio on 08-27-2024 Bacteria identified Cx Nom (U) ESBL Escherichia coli Abnormal [facility] Urine glucose detectionOrder ed By: Celia Toribio on 08-27-2024 Glucose Ql (U) Normal mg/dl Normal [facility] Urine leukocyte esterase det ection by dipstickOrdered By: Celia Toirbio on 08-27-2024 Leukocyte esterase Test strip Ql (U) 500 /ul High Negative [facility] Urine pHOrdered By: Celia rapp on 08-27-2024 pH (U) 6.0 [pH] 5.0 - 8.0 [facility] Urine sediment bacteria coun t by microscopy (number/high power field)Ordered By: Celia Toribio on 08-27-2024 Bacteria LM.HPF (Urine sed) [#/Area] 4 /[HPF] None Seen [facility] Urine specific gravity measu rementOrdered By: Celia Toribio on 08-27-2024 Specific gravity (U) [Rel density] 1.015 1.002-1.030 [facility] Urine urobilinogen measureme ntOrdered By: Celia Toribio on 08-27-2024 Urobilinogen Ql (U) Normal mg/dl Normal [facility] Urobilinogen Ql (U)Ordered B y: Celia Toribio on 08-27-2024 Urine Urobilinogen Normal mg/dl Normal [facility] White blood cell countOrdere d By: Celia Toribio on 08-27-2024 Urine WBC 25-50 SEEN /hpf 0-5 [facility] White blood cell count 25-50 SEEN /hpf 0-5 [facility] Bilirubin, totalOrdered By: Lisha Talamantes on 08-26-2024 Bilirubin [Mass/Vol] 0.25 mg/dL 0.00-1.30 [facility] CBC W/Diff, Automatedon 03- 0-2024 Absolute Lymph 0.94 X10 3/uL Normal 0.83-4.51 [facility] Comment on above: Performed By: #### L 100.0100, L500.4050, L501.5200, L501.2300 ####[facility] [address] [place], [address] Absolute Neut 2.9 X10 3/uL Normal 2.0-7.7 [facility] Comment on above: Performed By: #### L 100.0100, L500.4050, L501.5200, L501.2300 ####[facility] [address] [place], [address] Basophils/100 WBC (Bld) 1.1 % High 0-1 [facility] Comment on above: Performed By: #### L 100.0100, L500.4050, L501.5200, L501.2300 ####[facility] [address] [place], [address] Eosinophils/100 WBC (Bld) 3.4 % Normal 0-5 [facility] Comment on above: Performed By: #### L 100.0100, L500.4050, L501.5200, L501.2300 ####[facility] [address] [place], [address] Erythrocyte distribution width (RBC) [Ratio] 13.3 % Normal 11.6-14.6 [facility] Comment on above: Performed By: #### L 100.0100, L500.4050, L501.5200, L501.2300 ####[facility] [address] [place], [address] Hematocrit (Bld) [Volume fraction] 40.6 % Normal 40-54 [facility] Comment on above: Performed By: #### L 100.0100, L500.4050, L501.5200, L501.2300 ####[facility] [address] [place], [address] Hemoglobin (Bld) [Mass/Vol] 13.3 g/dL Normal 13.0-16.5 [facility] Comment on above: Performed By: #### L 100.0100, L500.4050, L501.5200, L501.2300 ####[facility] [address] [place], [address] IG% 0.200 Normal 0.0-0.9 [facility] Comment on above: Result Comment: IG% - Immature Granulocytes (promyelocytes, myelocytes andmetamyelocytes) > 1% indicates that a LEFT SHIFT is Present. Performed By: #### L 100.0100, L500.4050, L501.5200, L501.2300 ####[facility] [address] [place], [address] Lymphocytes/100 WBC (Bld) 19.8 % Normal 19-41 [facility] Comment on above: Performed By: #### L 100.0100, L500.4050, L501.5200, L501.2300 ####[facility] [address] [place], [address] MCH (RBC) [Entitic mass] 31.2 pg Normal 27.0-32.0 [facility] Comment on above: Performed By: #### L 100.0100, L500.4050, L501.5200, L501.2300 ####[facility] [address] [place], [address] MCHC (RBC) [Mass/Vol] 32.8 g/dL Normal 32-36 [facility] Comment on above: Performed By: #### L 100.0100, L500.4050, L501.5200, L501.2300 ####[facility] [address] [place], [address] MCV (RBC) [Entitic vol] 95.3 fL High 80-94 [facility] Comment on above: Performed By: #### L 100.0100, L500.4050, L501.5200, L501.2300 ####[facility] [address] [place], [address] Monocytes/100 WBC (Bld) 15.2 % High 0-10 [facility] Comment on above: Performed By: #### L 100.0100, L500.4050, L501.5200, L501.2300 ####[facility] [address] [place], [address] Neutrophils/100 WBC (Bld) 60.3 % Normal 47-70 [facility] Comment on above: Performed By: #### L 100.0100, L500.4050, L501.5200, L501.2300 ####[facility] [address] [place], [address] Nucleated RBC (Bld) [#/Vol] 0 10*3/uL Normal 0-5 [facility] Comment on above: Performed By: #### L 100.0100, L500.4050, L501.5200, L501.2300 ####[facility] [address] [place], [address] Platelet mean volume (Bld) [Entitic vol] 9.9 fL Normal 6.2-12.0 [facility] Comment on above: Performed By: #### L 100.0100, L500.4050, L501.5200, L501.2300 ####[facility] [address] [place], [address] Platelets (Bld) [#/Vol] 242 10*3/uL Normal 150-450 [facility] Comment on above: Performed By: #### L 100.0100, L500.4050, L501.5200, L501.2300 ####[facility] [address] [place], [address] RBC (Bld) [#/Vol] 4.26 10*6/uL Low 4.6-6.2 [facility] Comment on above: Performed By: #### L 100.0100, L500.4050, L501.5200, L501.2300 ####[facility] [address] [place], [address] RDW SD 46.7 fl High 35.1-43.9 [facility] Comment on above: Performed By: #### L 100.0100, L500.4050, L501.5200, L501.2300 ####[facility] [address] [place], [address] WBC (Bld) [#/Vol] 4.7 10*3/uL Normal 4.4-11.0 [facility] Comment on above: Performed By: #### L 100.0100, L500.4050, L501.5200, L501.2300 ####[facility] [address] [place], [address] COVID 19 AG RAPID (ОЛЕГ Dixon)on 08-26-2024 SARS-CoV-2 (COVID-19) RNA ALEENA+probe Ql (Unsp spec) Normal [facility] Comment on above: Performed By: #### M 100.505 ####[facility] [address] [place], [address] COVID-19 virus antigen assay Ordered By: Celia Toribio on 08-26-2024 SARS-CoV-2 (COVID-19) Ag IA.rapid Ql (Resp) [facility] Comprehensive Metabolic Prof ilon 08-26-2024 Albumin [Mass/Vol] 4.0 g/dL Normal 3.4-4.8 [facility] Comment on above: Performed By: #### L 100.0100, L500.4050, L501.5200, L501.2300 ####[facility] [address] [place], [address] Albumin/Globulin [Mass ratio] 1.4 {ratio} Normal 0.9-2.4 [facility] Comment on above: Performed By: #### L 100.0100, L500.4050, L501.5200, L501.2300 ####[facility] [address] [place], [address] ALK PHOS 67 U/L Normal 40-129 [facility] Comment on above: Performed By: #### L 100.0100, L500.4050, L501.5200, L501.2300 ####[facility] [address] [place], [address] ALT [Catalytic activity/Vol] 28 U/L Normal <=46 [facility] Comment on above: Performed By: #### L 100.0100, L500.4050, L501.5200, L501.2300 ####[facility] [address] [place], [address] AST [Catalytic activity/Vol] 23 U/L Normal <=37 [facility] Comment on above: Performed By: #### L 100.0100, L500.4050, L501.5200, L501.2300 ####[facility] [address] [place], [address] Bilirubin [Mass/Vol] 0.25 mg/dL Normal 0.00-1.30 [facility] Comment on above: Performed By: #### L 100.0100, L500.4050, L501.5200, L501.2300 ####[facility] [address] [place], [address] BUN/CRE 21.8 RATIO High 10-20 [facility] Comment on above: Performed By: #### L 100.0100, L500.4050, L501.5200, L501.2300 ####[facility] [address] [place], [address] Calcium [Mass/Vol] 9.4 mg/dL Normal 7.6-11.0 [facility] Comment on above: Performed By: #### L 100.0100, L500.4050, L501.5200, L501.2300 ####[facility] [address] [place], [address] Chloride [Moles/Vol] 105 mmol/L Normal 98-108 [facility] Comment on above: Performed By: #### L 100.0100, L500.4050, L501.5200, L501.2300 ####[facility] [address] [place], [address] CO2 [Moles/Vol] 17.6 mmol/L Low 21.0-32.0 [facility] Comment on above: Performed By: #### L 100.0100, L500.4050, L501.5200, L501.2300 ####[facility] [address] [place], [address] Creatinine [Mass/Vol] 1.04 mg/dL Normal 0.70-1.20 [facility] Comment on above: Performed By: #### L 100.0100, L500.4050, L501.5200, L501.2300 ####[facility] [address] [place], [address] ECRCL 58.77 ml/min Normal 50-250 [facility] Comment on above: Performed By: #### L 100.0100, L500.4050, L501.5200, L501.2300 ####[facility] [address] [place], [address] GAP 16 High 5-15 [facility] Comment on above: Performed By: #### L 100.0100, L500.4050, L501.5200, L501.2300 ####[facility] [address] [place], [address] GFR/1.73 sq M.predicted among non-blacks MDRD (S/P/Bld) [Vol rate/Area] 75 mL/min/{1.73_m2} Normal >60 [facility] Comment on above: Result Comment: mL/m in/1.73m2 CKD-EPI Creatinine Equation (2020) Performed By: #### L 100.0100, L500.4050, L501.5200, L501.2300 ####[facility] [address] [place], [address] Globulin (S) [Mass/Vol] 2.9 g/dL Normal 2.2-4.2 [facility] Comment on above: Performed By: #### L 100.0100, L500.4050, L501.5200, L501.2300 ####[facility] [address] [place], [address] Glucose [Mass/Vol] 88 mg/dL Normal 70-99 [facility] Comment on above: Performed By: #### L 100.0100, L500.4050, L501.5200, L501.2300 ####[facility] [address] [place], [address] Potassium [Moles/Vol] 3.6 mmol/L Normal 3.3-5.1 [facility] Comment on above: Performed By: #### L 100.0100, L500.4050, L501.5200, L501.2300 ####[facility] [address] [place], [address] Sodium [Moles/Vol] 139 mmol/L Normal 133-145 [facility] Comment on above: Performed By: #### L 100.0100, L500.4050, L501.5200, L501.2300 ####[facility] [address] [place], [address] T PROT 6.9 g/dL Normal 5.9-8.4 [facility] Comment on above: Performed By: #### L 100.0100, L500.4050, L501.5200, L501.2300 ####[facility] [address] [place], [address] Urea nitrogen [Mass/Vol] 23 mg/dL High 4-19 [facility] Comment on above: Performed By: #### L 100.0100, L500.4050, L501.5200, L501.2300 ####[facility] [address] [place], [address] Laboratory - Chemistry and C hemistry - challengeOrdered By: Lisha Talamantes on 08-26-2024 AST [Catalytic activity/Vol] 23 U/L <38 [facility] Lactic Acidon 08-26-2024 Lactate [Moles/Vol] 1.1 mmol/L Normal 0.0-2.0 [facility] Comment on above: Order Comment: Y Performed By: #### L 503.6005 ####[facility] [address] [place], [address] Lactic acid measurementOrder ed By: Celia Toribio on 08-26-2024 Lactate [Moles/Vol] 1.1 mmol/L 0.0-2.0 [facility] Magnesiumon 08-26-2024 Magnesium [Mass/Vol] 1.9 mg/dL Normal 1.5-2.2 [facility] Comment on above: Performed By: #### L 100.0100, L500.4050, L501.5200, L501.2300 ####[facility] [address] [place], [address] Magnesium (Unsp spec) [Mass/ Vol]Ordered By: Lisha Talamantes on 08-26-2024 Magnesium [Mass/Vol] 1.9 mg/dL 1.5-2.2 [facility] Magnesium measurement (mass/ volume)Ordered By: Lisha Talamantes on 08-26-2024 Magnesium (Unsp spec) [Mass/Vol] 1.9 mg/dL 1.5-2.2 [facility] No Panel InformationOrdered By: Lisha Talamantes on 08-26-2024 23 U/L <38 [facility] Phosphoruson 08-26-2024 Phosphate [Mass/Vol] 3.1 mg/dL Normal 2.7-4.5 [facility] Comment on above: Performed By: #### L 100.0100, L500.4050, L501.5200, L501.2300 ####[facility] [address] [place], [address] RESPIRATORY PANEL MOLECULARo n 08-26-2024 RP PANEL Normal [facility] Comment on above: Performed By: #### M 100.638 ####[facility] [address] [place], [address] Respiratory pathogens DNA an d RNA panel ALEENA+probe (Resp)Ordered By: Celia Toribio on 08-26-2024 Respiratory Panel (PCR) [facility] Respiratory pathogens detect ion panel by molecular detection methodOrdered By: Celia Toribio on 08-26-2024 Respiratory pathogens DNA and RNA panel ALEENA+probe (Resp) [facility] SARS-CoV-2 (COVID-19) Ag IA. rapid Ql (Resp)Ordered By: Celia Toribio on 08-26-2024 SARS-CoV-2 Antigen (Rapid) [facility] Serum globulin measurementOr dered By: Lisha Talamantes on 08-26-2024 Globulin (S) [Mass/Vol] 2.9 g/dL 2.2-4.2 [facility] Serum or plasma alanine saul otransferase (ALT) measurementOrdered By: Lisha Talamantes on 08-26-2024 ALT [Catalytic activity/Vol] 28 U/L <47 [facility] Serum or plasma albumin luis urement (mass/volume)Ordered By: Lisha Talamantes on 08-26-2024 Albumin [Mass/Vol] 4.0 g/dL 3.4-4.8 [facility] Serum or plasma albumin/glob ulin mass ratioOrdered By: Lisha Talamantes on 08-26-2024 Albumin/Globulin [Mass ratio] 1.4 {ratio} 0.9-2.4 [facility] Serum or plasma alkaline kathleen sphatase measurementOrdered By: Lisha Talamantes on 08-26-2024 ALP [Catalytic activity/Vol] 67 U/L 40-129 [facility] Serum phosphorus measurement Ordered By: Lisha Talamantes on 08-26-2024 Phosphorus Level 3.1 mg/dL 2.7-4.5 [facility] Total proteinOrdered By: Ying Talamantes on 08-26-2024 Protein [Mass/Vol] 6.9 g/dL 5.9-8.4 [facility] Absolute neutrophil countOrd ered By: Jaden Jauregui on 08-25-2024 Neutrophils (Bld) [#/Vol] 4.6 10*3/uL 2.0-7.7 [facility] Anion gap in Serum or Plasma Ordered By: Jaden Jauregui on 08-25-2024 Anion gap [Moles/Vol] 13 mmol/L 5-15 [facility] BUN/creatinine ratioOrdered By: Jaden Jauregui on 08-25-2024 Urea nitrogen/Creatinine [Mass ratio] 21.4 mg/mg High 10-20 [facility] Basophil percentageOrdered B y: Jaden Jauregui on 08-25-2024 Basophils/100 WBC (Bld) 0.8 % 0-1 [facility] Bilirubin, totalOrdered By: Jaden Jauregui on 08-25-2024 Bilirubin [Mass/Vol] 0.22 mg/dL 0.00-1.30 [facility] CBC W/Diff, Automatedon Absolute Lymph 0.61 X10 3/uL Low 0.83-4.51 [facility] Comment on above: Performed By: #### L 500.4050, L100.0100 ####[facility] [address] [place], [address] Absolute Neut 4.6 X10 3/uL Normal 2.0-7.7 [facility] Comment on above: Performed By: #### L 500.4050, L100.0100 ####[facility] [address] [place], [address] Basophils/100 WBC (Bld) 0.8 % Normal 0-1 [facility] Comment on above: Performed By: #### L 500.4050, L100.0100 ####[facility] [address] [place], [address] Eosinophils/100 WBC (Bld) 0.3 % Normal 0-5 [facility] Comment on above: Performed By: #### L 500.4050, L100.0100 ####[facility] [address] [place], [address] Erythrocyte distribution width (RBC) [Ratio] 13.2 % Normal 11.6-14.6 [facility] Comment on above: Performed By: #### L 500.4050, L100.0100 ####[facility] [address] [place], [address] Hematocrit (Bld) [Volume fraction] 43.3 % Normal 40-54 [facility] Comment on above: Performed By: #### L 500.4050, L100.0100 ####[facility] [address] [place], [address] Hemoglobin (Bld) [Mass/Vol] 14.2 g/dL Normal 13.0-16.5 [facility] Comment on above: Performed By: #### L 500.4050, L100.0100 ####[facility] [address] [place], [address] IG% 0.300 Normal 0.0-0.9 [facility] Comment on above: Result Comment: IG% - Immature Granulocytes (promyelocytes, myelocytes andmetamyelocytes) > 1% indicates that a LEFT SHIFT is Present. Performed By: #### L 500.4050, L100.0100 ####[facility] [address] [place], [address] Lymphocytes/100 WBC (Bld) 10.3 % Low 19-41 [facility] Comment on above: Performed By: #### L 500.4050, L100.0100 ####[facility] [address] [place], [address] MCH (RBC) [Entitic mass] 31.4 pg Normal 27.0-32.0 [facility] Comment on above: Performed By: #### L 500.4050, L100.0100 ####[facility] [address] [place], [address] MCHC (RBC) [Mass/Vol] 32.8 g/dL Normal 32-36 [facility] Comment on above: Performed By: #### L 500.4050, L100.0100 ####[facility] [address] [place], [address] MCV (RBC) [Entitic vol] 95.8 fL High 80-94 [facility] Comment on above: Performed By: #### L 500.4050, L100.0100 ####[facility] [address] [place], [address] Monocytes/100 WBC (Bld) 9.9 % Normal 0-10 [facility] Comment on above: Performed By: #### L 500.4050, L100.0100 ####[facility] [address] [place], [address] Neutrophils/100 WBC (Bld) 78.4 % High 47-70 [facility] Comment on above: Performed By: #### L 500.4050, L100.0100 ####[facility] [address] [place], [address] Nucleated RBC (Bld) [#/Vol] 0 10*3/uL Normal 0-5 [facility] Comment on above: Performed By: #### L 500.4050, L100.0100 ####[facility] [address] [place], [address] Platelet mean volume (Bld) [Entitic vol] 9.5 fL Normal 6.2-12.0 [facility] Comment on above: Performed By: #### L 500.4050, L100.0100 ####[facility] [address] [place], [address] Platelets (Bld) [#/Vol] 245 10*3/uL Normal 150-450 [facility] Comment on above: Performed By: #### L 500.4050, L100.0100 ####[facility] [address] [place], [address] RBC (Bld) [#/Vol] 4.52 10*6/uL Low 4.6-6.2 [facility] Comment on above: Performed By: #### L 500.4050, L100.0100 ####[facility] [address] [place], [address] RDW SD 46.6 fl High 35.1-43.9 [facility] Comment on above: Performed By: #### L 500.4050, L100.0100 ####[facility] [address] [place], [address] WBC (Bld) [#/Vol] 5.9 10*3/uL Normal 4.4-11.0 [facility] Comment on above: Performed By: #### L 500.4050, L100.0100 ####[facility] [address] [place], [address] Carbon dioxide, total [Moles /volume] in Central venous bloodOrdered By: Jaden Jauregui on 08-25-2024 CO2 [Moles/Vol] 24.5 mmol/L 21.0-32.0 [facility] Chest 1 View (Portable)on Chest 1 View (Portable) Normal [facility] Chloride assayOrdered By: Joseph Jauregui on 08-25-2024 Chloride [Moles/Vol] 102 mmol/L 98-108 [facility] Comprehensive Metabolic Prof ilon 08-25-2024 Albumin [Mass/Vol] 4.5 g/dL Normal 3.4-4.8 [facility] Comment on above: Performed By: #### L 500.4050, L100.0100 ####[facility] [address] [place], [address] Albumin/Globulin [Mass ratio] 1.4 {ratio} Normal 0.9-2.4 [facility] Comment on above: Performed By: #### L 500.4050, L100.0100 ####[facility] [address] [place], [address] ALK PHOS 77 U/L Normal 40-129 [facility] Comment on above: Performed By: #### L 500.4050, L100.0100 ####[facility] [address] [place], [address] ALT [Catalytic activity/Vol] 32 U/L Normal <=46 [facility] Comment on above: Performed By: #### L 500.4050, L100.0100 ####[facility] [address] [place], [address] AST [Catalytic activity/Vol] 26 U/L Normal <=37 [facility] Comment on above: Performed By: #### L 500.4050, L100.0100 ####[facility] [address] [place], [address] Bilirubin [Mass/Vol] 0.22 mg/dL Normal 0.00-1.30 [facility] Comment on above: Performed By: #### L 500.4050, L100.0100 ####[facility] [address] [place], [address] BUN/CRE 21.4 RATIO High 10-20 [facility] Comment on above: Performed By: #### L 500.4050, L100.0100 ####[facility] [address] [place], [address] Calcium [Mass/Vol] 10.0 mg/dL Normal 7.6-11.0 [facility] Comment on above: Performed By: #### L 500.4050, L100.0100 ####[facility] [address] [place], [address] Chloride [Moles/Vol] 102 mmol/L Normal 98-108 [facility] Comment on above: Performed By: #### L 500.4050, L100.0100 ####[facility] [address] [place], [address] CO2 [Moles/Vol] 24.5 mmol/L Normal 21.0-32.0 [facility] Comment on above: Performed By: #### L 500.4050, L100.0100 ####[facility] [address] [place], [address] Creatinine [Mass/Vol] 1.17 mg/dL Normal 0.70-1.20 [facility] Comment on above: Performed By: #### L 500.4050, L100.0100 ####[facility] [address] [place], [address] GAP 13 Normal 5-15 [facility] Comment on above: Performed By: #### L 500.4050, L100.0100 ####[facility] [address] [place], [address] GFR/1.73 sq M.predicted among non-blacks MDRD (S/P/Bld) [Vol rate/Area] 65 mL/min/{1.73_m2} Normal >60 [facility] Comment on above: Result Comment: mL/m in/1.73m2 CKD-EPI Creatinine Equation (2020) Performed By: #### L 500.4050, L100.0100 ####[facility] [address] [place], [address] Globulin (S) [Mass/Vol] 3.2 g/dL Normal 2.2-4.2 [facility] Comment on above: Performed By: #### L 500.4050, L100.0100 ####[facility] [address] [place], [address] Glucose [Mass/Vol] 98 mg/dL Normal 70-99 [facility] Comment on above: Performed By: #### L 500.4050, L100.0100 ####[facility] [address] [place], [address] Potassium [Moles/Vol] 3.8 mmol/L Normal 3.3-5.1 [facility] Comment on above: Performed By: #### L 500.4050, L100.0100 ####[facility] [address] [place], [address] Sodium [Moles/Vol] 139 mmol/L Normal 133-145 [facility] Comment on above: Performed By: #### L 500.4050, L100.0100 ####[facility] [address] [place], [address] T PROT 7.7 g/dL Normal 5.9-8.4 [facility] Comment on above: Performed By: #### L 500.4050, L100.0100 ####[facility] [address] [place], [address] Urea nitrogen [Mass/Vol] 25 mg/dL High 4-19 [facility] Comment on above: Performed By: #### L 500.4050, L100.0100 ####[facility] [address] [place], [address] Emergency Department Summary on 08-25-2024 Emergency Department Summary Normal [facility] Eosinophil percentageOrdered By: Jaden Jauregui on 08-25-2024 Eosinophils/100 WBC (Bld) 0.3 % 0-5 [facility] Erythrocyte distribution wid th ratioOrdered By: Jaden Jauregui on 08-25-2024 Erythrocyte distribution width (RBC) [Ratio] 13.2 % 11.6-14.6 [facility] Erythrocyte distribution wid th standard deviationOrdered By: Jaden Jauregui on 08-25-2024 Erythrocyte distribution width (RBC) [Entitic vol] 46.6 fL High 35.1-43.9 [facility] GFR/1.73 sq M.predicted gisella g non-blacks MDRD (S/P/Bld) [Vol rate/Area]Ordered By: Jaden Jauregui on 08-25-2024 Estimated GFR (MDRD) Non-Af Amer 65 >60 [facility] Comment on above: mL/min/1.73m2 CKD-EP I Creatinine Equation (2020) H AND P Exam - [facility] 08-25-2024 H&P Exam - Hospitalist Normal [facility] Hematocrit Auto (Bld) [Volum e fraction]Ordered By: Jaden Jauregui on 08-25-2024 Hematocrit (Bld) [Volume fraction] 43.3 % 40-54 [facility] Hemoglobin measurementOrdere d By: Jaden Jauregui on 08-25-2024 Hemoglobin (Bld) [Mass/Vol] 14.2 g/dL 13.0-16.5 [facility] Immature granulocytes/100 WB C Auto (Bld)Ordered By: Jaden Jauregui on 08-25-2024 Immature granulocytes/100 WBC (Bld) 0.300 % 0.0-0.9 [facility] Comment on above: IG% - Immature Granu locytes (promyelocytes, myelocytes and metamyelocytes) > 1% indicates that a LEFT SHIFT is Present. Laboratory - Chemistry and C hemistry - challengeOrdered By: Jaden Jauregui on 08-25-2024 AST [Catalytic activity/Vol] 26 U/L <38 [facility] Lymphocytes Auto (Unsp spec) [#/Vol]Ordered By: Jaden Jauregui on 08-25-2024 Lymphocytes (Bld) [#/Vol] 0.61 10*3/uL Low 0.83-4.51 [facility] Lymphocytes/100 WBC Auto (Un sp spec)Ordered By: Jaden Jauregui on 08-25-2024 Lymphocytes/100 WBC (Bld) 10.3 % Low 19-41 [facility] MCV (mean corpuscular volume ) determinationOrdered By: Jaden Jauregui on 08-25-2024 MCV (RBC) [Entitic vol] 95.8 fL High 80-94 [facility] Mean corpuscular hemoglobin (MCH) determinationOrdered By: Jaden Jauregui on 08-25-2024 MCH (RBC) [Entitic mass] 31.4 pg 27.0-32.0 [facility] Mean corpuscular hemoglobin concentration (MCHC) determinationOrdered By: Jaden Jauregui on 08-25-2024 MCHC (RBC) [Mass/Vol] 32.8 g/dL 32-36 [facility] Mean platelet volume determi nationOrdered By: Jaden Jauregui on 08-25-2024 Platelet mean volume (Bld) [Entitic vol] 9.5 fL 6.2-12.0 [facility] Monocyte percentageOrdered B y: Jaden Jauregui on 08-25-2024 Monocytes/100 WBC (Bld) 9.9 % 0-10 [facility] Neutrophil percentageOrdered By: Jaden Jauregui on 08-25-2024 Neutrophils/100 WBC (Bld) 78.4 % High 47-70 [facility] Nucleated red blood cell per centageOrdered By: Jaden Jauregui on 08-25-2024 Nucleated RBC/100 WBC (Bld) [Ratio] 0 % 0-5 [facility] Platelet countOrdered By: Joseph Jauregui on 08-25-2024 Platelets (Bld) [#/Vol] 245 10*3/uL 150-450 [facility] Potassium (Unsp spec) [Mass/ Vol]Ordered By: Jaden Jauregui on 08-25-2024 Potassium [Moles/Vol] 3.8 mmol/L 3.3-5.1 [facility] RBC Auto (Bld) [#/Vol]Ordere d By: Jaden Jauregui on 08-25-2024 RBC (Bld) [#/Vol] 4.52 10*6/uL Low 4.6-6.2 [facility] Serum creatinine measurement (mass/volume)Ordered By: Jaden Jauregui on 08-25-2024 Creatinine [Mass/Vol] 1.17 mg/dL 0.70-1.20 [facility] Serum globulin measurementOr dered By: Jaden Jauregui on 08-25-2024 Globulin (S) [Mass/Vol] 3.2 g/dL 2.2-4.2 [facility] Serum glucose measurement (m ass/volume)Ordered By: Jaden Jauregui on 08-25-2024 Glucose [Mass/Vol] 98 mg/dL 70-99 [facility] Serum or plasma alanine saul otransferase (ALT) measurementOrdered By: Jaden Jauregui on 08-25-2024 ALT [Catalytic activity/Vol] 32 U/L <47 [facility] Serum or plasma albumin luis urement (mass/volume)Ordered By: Jaden Jauregui on 08-25-2024 Albumin [Mass/Vol] 4.5 g/dL 3.4-4.8 [facility] Serum or plasma albumin/glob ulin mass ratioOrdered By: Jaden Jauregui on 08-25-2024 Albumin/Globulin [Mass ratio] 1.4 {ratio} 0.9-2.4 [facility] Serum or plasma alkaline kathleen sphatase measurementOrdered By: Jaden Jauregui on 08-25-2024 ALP [Catalytic activity/Vol] 77 U/L 40-129 [facility] Serum or plasma calcium luis urement (mass/volume)Ordered By: Jaden Jauregui on 08-25-2024 Calcium [Mass/Vol] 10.0 mg/dL 7.6-11.0 [facility] Serum or plasma urea nitroge n measurement (mass/volume)Ordered By: Jaden Jauregui on 08-25-2024 Urea nitrogen [Mass/Vol] 25 mg/dL High 4-19 [facility] Sodium levelOrdered By: Maurice Jauregui on 08-25-2024 Sodium [Moles/Vol] 139 mmol/L 133-145 [facility] Total proteinOrdered By: Rad Jauregui on 08-25-2024 Protein [Mass/Vol] 7.7 g/dL 5.9-8.4 [facility] White blood cell (WBC) count Ordered By: Jaden Jauregui on 08-25-2024 WBC (Bld) [#/Vol] 5.9 10*3/uL 4.4-11.0 [facility] 93-DL-Izlkbqz DOrdered By: Landry Prather on 07-15-2024 Vitamin D 25-Hydroxy 36.0 ng/mL [facility] Comment on above: Vitamin D 25(OH) Sta tus Range Deficiency <20 ng/mL (50nmol/L) Insufficiency 20 - 30 ng/mL (50 - 75 nmol/L) Sufficiency 30 - 100 ng/mL (75 - 250 nmol/L) Toxicity >100 ng/mL (>250 nmol/L) Absolute neutrophil countOrd ered By: Carla Prather on 07-15-2024 Neutrophils (Bld) [#/Vol] 2.7 10*3/uL 2.0-7.7 [facility] Albumin to globulin ratioOrd ered By: Carla Prather on 07-15-2024 Albumin/Globulin [Mass ratio] 1.0 {ratio} Normal 0.9-2.4 [facility] Comment on above: Order Comment: 414-2 Performed By: #### L 501.7900, L503.0105, L500.4050, L100.0100, L506.1000, L501.9985, L501.5200 ####[facility] [address] [place], [address] Basophil percentageOrdered B y: Carla Prather on 07-15-2024 Basophils/100 WBC (Bld) 1.4 % High 0-1 [facility] Bilirubin, totalOrdered By: Carla Prather on 07-15-2024 Bilirubin [Mass/Vol] 0.30 mg/dL Normal 0.20-1.00 [facility] Comment on above: For patients on eltr ombopag therapy, use of Dimension [place] TBIL is not recommended. Order Comment: 414-2 Result Comment: For patients on eltrombopag therapy, use of Dimension [place] TBIL is not recommended. Performed By: #### L 501.7900, L503.0105, L500.4050, L100.0100, L506.1000, L501.9985, L501.5200 ####[facility] [address] [place], [place], [id number] Blood urea nitrogen (BUN)/cr eatinine ratioOrdered By: Carla Prather on 07-15-2024 Urea nitrogen/Creatinine [Mass ratio] 25.4 mg/mg High 10-20 [facility] CBC W/Diff, Automatedon 06-20 Absolute Lymph 1.38 X10 3/uL Normal 0.83-4.51 [facility] Comment on above: Order Comment: 414-2 Performed By: #### L 501.7900, L503.0105, L500.4050, L100.0100, L506.1000, L501.9985, L501.5200 ####[facility] [address] [place], [place], [id number] Absolute Neut 2.7 X10 3/uL Normal 2.0-7.7 [facility] Comment on above: Order Comment: 414-2 Performed By: #### L 501.7900, L503.0105, L500.4050, L100.0100, L506.1000, L501.9985, L501.5200 ####[facility] [address] [place], [address] Basophils/100 WBC (Bld) 1.4 % High 0-1 [facility] Comment on above: Order Comment: 414-2 Performed By: #### L 501.7900, L503.0105, L500.4050, L100.0100, L506.1000, L501.9985, L501.5200 ####[facility] [address] [place], [address] Eosinophils/100 WBC (Bld) 9.4 % High 0-5 [facility] Comment on above: Order Comment: 414-2 Performed By: #### L 501.7900, L503.0105, L500.4050, L100.0100, L506.1000, L501.9985, L501.5200 ####[facility] [address] [place], [address] Erythrocyte distribution width (RBC) [Ratio] 12.8 % Normal 11.6-14.6 [facility] Comment on above: Order Comment: 414-2 Performed By: #### L 501.7900, L503.0105, L500.4050, L100.0100, L506.1000, L501.9985, L501.5200 ####[facility] [address] [place], [address] Hematocrit (Bld) [Volume fraction] 45.8 % Normal 40-54 [facility] Comment on above: Order Comment: 414-2 Performed By: #### L 501.7900, L503.0105, L500.4050, L100.0100, L506.1000, L501.9985, L501.5200 ####[facility] [address] [place], [address] Hemoglobin (Bld) [Mass/Vol] 14.8 g/dL Normal 13.0-16.5 [facility] Comment on above: Order Comment: 414-2 Performed By: #### L 501.7900, L503.0105, L500.4050, L100.0100, L506.1000, L501.9985, L501.5200 ####[facility] [address] [place], [address] IG% 0.400 Normal 0.0-0.9 [facility] Comment on above: Order Comment: 414-2 Result Comment: IG% - Immature Granulocytes (promyelocytes, myelocytes andmetamyelocytes) > 1% indicates that a LEFT SHIFT is Present. Performed By: #### L 501.7900, L503.0105, L500.4050, L100.0100, L506.1000, L501.9985, L501.5200 ####[facility] [address] [place], [address] Lymphocytes/100 WBC (Bld) 26.9 % Normal 19-41 [facility] Comment on above: Order Comment: 414-2 Performed By: #### L 501.7900, L503.0105, L500.4050, L100.0100, L506.1000, L501.9985, L501.5200 ####[facility] [address] [place], [address] MCH (RBC) [Entitic mass] 31.2 pg Normal 27.0-32.0 [facility] Comment on above: Order Comment: 414-2 Performed By: #### L 501.7900, L503.0105, L500.4050, L100.0100, L506.1000, L501.9985, L501.5200 ####[facility] [address] [place], [address] MCHC (RBC) [Mass/Vol] 32.3 g/dL Normal 32-36 [facility] Comment on above: Order Comment: 414-2 Performed By: #### L 501.7900, L503.0105, L500.4050, L100.0100, L506.1000, L501.9985, L501.5200 ####[facility] [address] [place], [address] MCV (RBC) [Entitic vol] 96.4 fL High 80-94 [facility] Comment on above: Order Comment: 414-2 Performed By: #### L 501.7900, L503.0105, L500.4050, L100.0100, L506.1000, L501.9985, L501.5200 ####[facility] [address] [place], [address] Monocytes/100 WBC (Bld) 8.8 % Normal 0-10 [facility] Comment on above: Order Comment: 414-2 Performed By: #### L 501.7900, L503.0105, L500.4050, L100.0100, L506.1000, L501.9985, L501.5200 ####[facility] [address] [place], [address] Neutrophils/100 WBC (Bld) 53.1 % Normal 47-70 [facility] Comment on above: Order Comment: 414-2 Performed By: #### L 501.7900, L503.0105, L500.4050, L100.0100, L506.1000, L501.9985, L501.5200 ####[facility] [address] [place], [address] Nucleated RBC (Bld) [#/Vol] 0 10*3/uL Normal 0-5 [facility] Comment on above: Order Comment: 414-2 Performed By: #### L 501.7900, L503.0105, L500.4050, L100.0100, L506.1000, L501.9985, L501.5200 ####[facility] [address] [place], [address] Platelet mean volume (Bld) [Entitic vol] 9.6 fL Normal 6.2-12.0 [facility] Comment on above: Order Comment: 414-2 Performed By: #### L 501.7900, L503.0105, L500.4050, L100.0100, L506.1000, L501.9985, L501.5200 ####[facility] [address] [place], [address] Platelets (Bld) [#/Vol] 295 10*3/uL Normal 150-450 [facility] Comment on above: Order Comment: 414-2 Performed By: #### L 501.7900, L503.0105, L500.4050, L100.0100, L506.1000, L501.9985, L501.5200 ####[facility] [address] [place], [address] RBC (Bld) [#/Vol] 4.75 10*6/uL Normal 4.6-6.2 [facility] Comment on above: Order Comment: 414-2 Performed By: #### L 501.7900, L503.0105, L500.4050, L100.0100, L506.1000, L501.9985, L501.5200 ####[facility] [address] [place], [address] RDW SD 45.4 fl High 35.1-43.9 [facility] Comment on above: Order Comment: 414-2 Performed By: #### L 501.7900, L503.0105, L500.4050, L100.0100, L506.1000, L501.9985, L501.5200 ####[facility] [address] [place], [address] WBC (Bld) [#/Vol] 5.1 10*3/uL Normal 4.4-11.0 [facility] Comment on above: Order Comment: 414-2 Performed By: #### L 501.7900, L503.0105, L500.4050, L100.0100, L506.1000, L501.9985, L501.5200 ####[facility] [address] [place], [address] Carbamazepine (Tegretol)on 0 07-15-2024 CARBAMAZEPINE 7.0 ug/mL Normal 4.0-12.0 [facility] Comment on above: Order Comment: 414-2 Performed By: #### L 501.7900, L503.0105, L500.4050, L100.0100, L506.1000, L501.9985, L501.5200 ####[facility] [address] [place], [place], [id number] Carbon dioxide measurementOr dered By: Carla Prather on 07-15-2024 CO2 [Moles/Vol] 24.0 mmol/L Normal 21.0-32.0 [facility] Comment on above: Order Comment: 414-2 Performed By: #### L 501.7900, L503.0105, L500.4050, L100.0100, L506.1000, L501.9985, L501.5200 ####[facility] [address] [place], [place], [id number] Chloride measurementOrdered By: Carla Prather on 07-15-2024 Chloride [Moles/Vol] 107 mmol/L Normal 98-107 [facility] Comment on above: Order Comment: 414-2 Performed By: #### L 501.7900, L503.0105, L500.4050, L100.0100, L506.1000, L501.9985, L501.5200 ####[facility] [address] [place], [place], [id number] Comprehensive Metabolic Prof ilon 07-15-2024 ALK P 70 U/L Normal 45-117 [facility] Comment on above: Order Comment: 414-2 Performed By: #### L 501.7900, L503.0105, L500.4050, L100.0100, L506.1000, L501.9985, L501.5200 ####[facility] [address] [place], [place], [id number] BUN/CRE 25.4 RATIO High 10-20 [facility] Comment on above: Order Comment: 414-2 Performed By: #### L 501.7900, L503.0105, L500.4050, L100.0100, L506.1000, L501.9985, L501.5200 ####[facility] [address] [place], [address] CA,Total 10.1 mg/dL Normal 8.5-10.1 [facility] Comment on above: Order Comment: 414-2 Performed By: #### L 501.7900, L503.0105, L500.4050, L100.0100, L506.1000, L501.9985, L501.5200 ####[facility] [address] [place], [address] EST GFR - AA 77 mL/min Normal >60 [facility] Comment on above: Order Comment: 414-2 Result Comment: Afri can [place] GFR Calc Performed By: #### L 501.7900, L503.0105, L500.4050, L100.0100, L506.1000, L501.9985, L501.5200 ####[facility] [address] [place], [address] GAP 7 Normal 5-15 [facility] Comment on above: Order Comment: 414-2 Performed By: #### L 501.7900, L503.0105, L500.4050, L100.0100, L506.1000, L501.9985, L501.5200 ####[facility] [address] [place], [address] GFR/1.73 sq M.predicted among non-blacks MDRD (S/P/Bld) [Vol rate/Area] 64 mL/min/{1.73_m2} Normal >60 [facility] Comment on above: Order Comment: 414-2 Result Comment: Non- GFR Calc Performed By: #### L 501.7900, L503.0105, L500.4050, L100.0100, L506.1000, L501.9985, L501.5200 ####[facility] [address] [place], [place], [id number] T PROT 8.0 g/dL Normal 6.4-8.2 [facility] Comment on above: Order Comment: 414-2 Performed By: #### L 501.7900, L503.0105, L500.4050, L100.0100, L506.1000, L501.9985, L501.5200 ####[facility] [address] [place], [address] Comprehensive Metabolic Prof ilOrdered By: Carla Prather on 07-15-2024 AST [Catalytic activity/Vol] 23 U/L Normal 15-37 [facility] Comment on above: Order Comment: 414-2 Performed By: #### L 501.7900, L503.0105, L500.4050, L100.0100, L506.1000, L501.9985, L501.5200 ####[facility] [address] [place], [place], [id number] Eosinophil percentageOrdered By: Carla Prather on 07-15-2024 Eosinophils/100 WBC (Bld) 9.4 % High 0-5 [facility] Erythrocyte distribution wid th ratioOrdered By: Carla Prather on 07-15-2024 Erythrocyte distribution width (RBC) [Ratio] 12.8 % 11.6-14.6 [facility] Erythrocyte distribution wid th standard deviationOrdered By: Carla Prather on 07-15-2024 Erythrocyte distribution width (RBC) [Entitic vol] 45.4 fL High 35.1-43.9 [facility] Estimated glomerular filtrat ion rate (GFR) AmericanOrdered By: Carla Prather on 07-15-2024 Estimated GFR (MDRD) Amer 77 mL/min >60 [facility] Comment on above: GFR Calc Glomerular filtration rate ( GFR) estimationOrdered By: Carla Prather on 07-15-2024 Estimated GFR (MDRD) Non-Af Amer 64 mL/min >60 [facility] Comment on above: Non- GFR Calc Glucose measurementOrdered B y: Carla Prather on 07-15-2024 Glucose [Mass/Vol] 103 mg/dL Normal 74-106 [facility] Comment on above: Fasting Glucose resu lt from 100 to 125 mg/dL suggests IMPAIRED HOMEOSTASIS per A.D.A. criteria. Order Comment: 414-2 Result Comment: Fast ing Glucose result from 100 to 125 mg/dLsuggests IMPAIRED HOMEOSTASIS per A.D.A. criteria. Performed By: #### L 501.7900, L503.0105, L500.4050, L100.0100, L506.1000, L501.9985, L501.5200 ####[facility] [address] [place], [place], [id number] Hematocrit Auto (Bld) [Volum e fraction]Ordered By: Carla Prather on 07-15-2024 Hematocrit (Bld) [Volume fraction] 45.8 % 40-54 [facility] Hemoglobin A1con 07-15-2024 HbA1c (Bld) [Mass fraction] 5.6 % Normal 3.8-5.6 [facility] Comment on above: Order Comment: 414-2 Result Comment: Norm al < 5.7 % Prediabetic 5.7 - 6.4 % Diabetic >or= 6.5 % Please note range changes. Performed By: #### L 501.7900, L503.0105, L500.4050, L100.0100, L506.1000, L501.9985, L501.5200 ####[facility] [address] [place], [place], [id number] Hemoglobin A1c percentageOrd ered By: Carla Prather on 07-15-2024 HbA1c (Bld) [Mass fraction] 5.6 % 3.8-5.6 [facility] Comment on above: Normal < 5.7 % Predi abetic 5.7 - 6.4 % Diabetic >or= 6.5 % Please note range changes. Hemoglobin measurementOrdere d By: Carla Prather on 07-15-2024 Hemoglobin (Bld) [Mass/Vol] 14.8 g/dL 13.0-16.5 [facility] Immature granulocytes/100 WB C Auto (Bld)Ordered By: Carla Prather on 07-15-2024 Immature granulocytes/100 WBC (Bld) 0.400 % 0.0-0.9 [facility] Comment on above: IG% - Immature Granu locytes (promyelocytes, myelocytes and metamyelocytes) > 1% indicates that a LEFT SHIFT is Present. Lymphocytes Auto (Unsp spec) [#/Vol]Ordered By: Carla Prather on 07-15-2024 Lymphocytes (Bld) [#/Vol] 1.38 10*3/uL 0.83-4.51 [facility] Lymphocytes/100 WBC Auto (Un sp spec)Ordered By: Carla Prather on 07-15-2024 Lymphocytes/100 WBC (Bld) 26.9 % 19-41 [facility] MCV (mean corpuscular volume ) determinationOrdered By: Carla Prather on 07-15-2024 MCV (RBC) [Entitic vol] 96.4 fL High 80-94 [facility] Magnesium measurementOrdered By: Carla Prather on 07-15-2024 Magnesium [Mass/Vol] 2.1 mg/dL Normal 1.6-2.6 [facility] Comment on above: Order Comment: 414-2 Performed By: #### L 501.7900, L503.0105, L500.4050, L100.0100, L506.1000, L501.9985, L501.5200 ####[facility] [address] [place], [address] Mean corpuscular hemoglobin (MCH) determinationOrdered By: Carla Prather on 07-15-2024 MCH (RBC) [Entitic mass] 31.2 pg 27.0-32.0 [facility] Mean corpuscular hemoglobin concentration (MCHC) determinationOrdered By: Carla Prather on 07-15-2024 MCHC (RBC) [Mass/Vol] 32.3 g/dL 32-36 [facility] Mean platelet volume determi nationOrdered By: Carla Prather on 07-15-2024 Platelet mean volume (Bld) [Entitic vol] 9.6 fL 6.2-12.0 [facility] Monocyte percentageOrdered B y: Carla Prather on 07-15-2024 Monocytes/100 WBC (Bld) 8.8 % 0-10 [facility] Neutrophil percentageOrdered By: Carla Prather on 07-15-2024 Neutrophils/100 WBC (Bld) 53.1 % 47-70 [facility] Nucleated red blood cell per centageOrdered By: Carla Prather on 07-15-2024 Nucleated RBC/100 WBC (Bld) [Ratio] 0 % 0-5 [facility] Platelet countOrdered By: Wilfredo Prather on 07-15-2024 Platelets (Bld) [#/Vol] 295 10*3/uL 150-450 [facility] Potassium measurementOrdered By: Carla Prather on 07-15-2024 Potassium [Moles/Vol] 3.8 mmol/L Normal 3.5-5.1 [facility] Comment on above: Order Comment: 414-2 Performed By: #### L 501.7900, L503.0105, L500.4050, L100.0100, L506.1000, L501.9985, L501.5200 ####[facility] [address] [place], [address] RBC Auto (Bld) [#/Vol]Ordere d By: Carla Prather on 07-15-2024 RBC (Bld) [#/Vol] 4.75 10*6/uL 4.6-6.2 [facility] Serum anion gap measurementO rdered By: Carla Prather on 07-15-2024 Anion gap [Moles/Vol] 7 mmol/L 5-15 [facility] Serum globulin measurementOr dered By: Carla Prathre on 07-15-2024 Globulin (S) [Mass/Vol] 4.1 g/dL Normal 2.2-4.2 [facility] Comment on above: Order Comment: 414-2 Performed By: #### L 501.7900, L503.0105, L500.4050, L100.0100, L506.1000, L501.9985, L501.5200 ####[facility] [address] [place], [place], [id number] Serum or plasma alanine saul otransferase (ALT) measurementOrdered By: Carla Prather on 07-15-2024 ALT [Catalytic activity/Vol] 37 U/L Normal 16-61 [facility] Comment on above: Order Comment: 414-2 Performed By: #### L 501.7900, L503.0105, L500.4050, L100.0100, L506.1000, L501.9985, L501.5200 ####[facility] [address] [place], [place], [id number] Serum or plasma albumin luis urement (mass/volume)Ordered By: Carla Prather on 07-15-2024 Albumin [Mass/Vol] 3.9 g/dL Normal 3.2-5.0 [facility] Comment on above: Order Comment: 414-2 Performed By: #### L 501.7900, L503.0105, L500.4050, L100.0100, L506.1000, L501.9985, L501.5200 ####[facility] [address] [place], [place], [id number] Serum or plasma alkaline kathleen sphatase measurementOrdered By: Carla Prather on 07-15-2024 ALP [Catalytic activity/Vol] 70 U/L 45-117 [facility] Serum or plasma calcium luis urement (mass/volume)Ordered By: Carla Prather on 07-15-2024 Calcium [Mass/Vol] 10.1 mg/dL 8.5-10.1 [facility] Serum or plasma creatinine m easurement (mass/volume)Ordered By: Carla Prather on 07-15-2024 Creatinine [Mass/Vol] 1.18 mg/dL Normal 0.70-1.30 [facility] Comment on above: The validity of the calculated GFR & GFRAA in patients over 70 years has not been determined. Clinical correlation is essential. Order Comment: 414-2 Result Comment: The validity of the calculated GFR GFRAA in patients over70 years has not been determined. Clinical correlation isessential. Performed By: #### L 501.7900, L503.0105, L500.4050, L100.0100, L506.1000, L501.9985, L501.5200 ####[facility] [address] [place], [place], [id number] Serum or plasma urea nitroge n measurement (mass/volume)Ordered By: Carla Prather on 07-15-2024 Urea nitrogen [Mass/Vol] 30 mg/dL High 7-18 [facility] Comment on above: Order Comment: 414-2 Performed By: #### L 501.7900, L503.0105, L500.4050, L100.0100, L506.1000, L501.9985, L501.5200 ####[facility] [address] [place], [place], [id number] Sodium levelOrdered By: Luca Prather on 07-15-2024 Sodium [Moles/Vol] 138 mmol/L Normal 136-145 [facility] Comment on above: Order Comment: 414-2 Performed By: #### L 501.7900, L503.0105, L500.4050, L100.0100, L506.1000, L501.9985, L501.5200 ####[facility] [address] [place], [place], [id number] Total proteinOrdered By: Ming Prather on 07-15-2024 Protein [Mass/Vol] 8.0 g/dL 6.4-8.2 [facility] Vitamin B12on 07-15-2024 Cobalamin (Vitamin B12) [Mass/Vol] 692 pg/mL Normal 211-911 [facility] Comment on above: Order Comment: 414-2 Performed By: #### L 501.7900, L503.0105, L500.4050, L100.0100, L506.1000, L501.9985, L501.5200 ####[facility] [address] [place], [address] Vitamin B12 measurementOrder ed By: Carla Prather on 07-15-2024 Cobalamin (Vitamin B12) [Mass/Vol] 692 pg/mL [facility] Vitamin D,25 Hydroxyon 07-15 Vitamin D 25-OH 36.0 ng/mL Normal [facility] Comment on above: Order Comment: 414-2 Result Comment: Teri min D 25(OH) Status Range Deficiency <20 ng/mL (50nmol/L) Insufficiency 20 - 30 ng/mL (50 - 75 nmol/L) Sufficiency 30 - 100 ng/mL (75 - 250 nmol/L) Toxicity >100 ng/mL (>250 nmol/L) Performed By: #### L 501.7900, L503.0105, L500.4050, L100.0100, L506.1000, L501.9985, L501.5200 ####[facility] [address] [place], [address] White blood cell (WBC) count Ordered By: Carla Prather on 07-15-2024 WBC (Bld) [#/Vol] 5.1 10*3/uL 4.4-11.0 [facility] carBAMazepine [Mass/Vol]Orde red By: Carla Prather on 07-15-2024 Carbamazepine (Tegretol) Level 7.0 ug/mL 4.0-12.0 [facility] Basic Metabolic Profile (BMP )on 04-15-2024 BUN Normal 7-18 [facility] Comment on above: Result Comment: Canc elled via OM: Order cancelled - Patient discharged Performed By: #### L 100.0100, L500.2500 ####[facility] [address] [place], [address] BUN/CRE Normal 10-20 [facility] Comment on above: Result Comment: Canc elled via OM: Order cancelled - Patient discharged Performed By: #### L 100.0100, L500.2500 ####[facility] [address] [place], [address] CA,Total Normal 8.5-10.1 [facility] Comment on above: Result Comment: Canc elled via OM: Order cancelled - Patient discharged Performed By: #### L 100.0100, L500.2500 ####[facility] [address] [place], [address] CL Normal 98-107 [facility] Comment on above: Result Comment: Canc elled via OM: Order cancelled - Patient discharged Performed By: #### L 100.0100, L500.2500 ####[facility] [address] [place], [address] CO2 Normal 21.0-32.0 [facility] Comment on above: Result Comment: Canc elled via OM: Order cancelled - Patient discharged Performed By: #### L 100.0100, L500.2500 ####[facility] [address] [place], [address] CREAT,SERUM Normal 0.70-1.30 [facility] Comment on above: Result Comment: Canc elled via OM: Order cancelled - Patient discharged Performed By: #### L 100.0100, L500.2500 ####[facility] [address] [place], [address] EST GFR Normal >60 [facility] Comment on above: Result Comment: Canc elled via OM: Order cancelled - Patient discharged Performed By: #### L 100.0100, L500.2500 ####[facility] [address] [place], [address] EST GFR - AA Normal >60 [facility] Comment on above: Result Comment: Canc elled via OM: Order cancelled - Patient discharged Performed By: #### L 100.0100, L500.2500 ####[facility] [address] [place], [address] GAP Normal 5-15 [facility] Comment on above: Result Comment: Canc elled via OM: Order cancelled - Patient discharged Performed By: #### L 100.0100, L500.2500 ####[facility] [address] [place], [address] GLU Normal 74-106 [facility] Comment on above: Result Comment: Canc elled via OM: Order cancelled - Patient discharged Performed By: #### L 100.0100, L500.2500 ####[facility] [address] [place], [address] Potassium Normal 3.5-5.1 [facility] Comment on above: Result Comment: Canc elled via OM: Order cancelled - Patient discharged Performed By: #### L 100.0100, L500.2500 ####[facility] [address] [place], [address] Basic Metabolic Profile (BMP) Normal 136-145 [facility] Comment on above: Result Comment: Canc elled via OM: Order cancelled - Patient discharged Performed By: #### L 100.0100, L500.2500 ####[facility] [address] [place], [address] CBC W/Diff, Automatedon 10-2 Absolute Neut Normal 2.0-7.7 [facility] Comment on above: Result Comment: Canc elled via OM: Order cancelled - Patient discharged Performed By: #### L 100.0100, L500.2500 ####[facility] [address] [place], [address] HCT Normal 40-54 [facility] Comment on above: Result Comment: Canc elled via OM: Order cancelled - Patient discharged Performed By: #### L 100.0100, L500.2500 ####[facility] [address] [place], [address] HGB Normal 13.0-16.5 [facility] Comment on above: Result Comment: Canc elled via OM: Order cancelled - Patient discharged Performed By: #### L 100.0100, L500.2500 ####[facility] [address] [place], [address] MCH Normal 27.0-32.0 [facility] Comment on above: Result Comment: Canc elled via OM: Order cancelled - Patient discharged Performed By: #### L 100.0100, L500.2500 ####[facility] [address] [place], [address] MCHC Normal 32-36 [facility] Comment on above: Result Comment: Canc elled via OM: Order cancelled - Patient discharged Performed By: #### L 100.0100, L500.2500 ####[facility] [address] [place], [address] MCV Normal 80-94 [facility] Comment on above: Result Comment: Canc elled via OM: Order cancelled - Patient discharged Performed By: #### L 100.0100, L500.2500 ####[facility] [address] [place], [address] NEUT% Normal 47-70 [facility] Comment on above: Result Comment: Canc elled via OM: Order cancelled - Patient discharged Performed By: #### L 100.0100, L500.2500 ####[facility] [address] [place], [address] PLT Normal 150-450 [facility] Comment on above: Result Comment: Canc elled via OM: Order cancelled - Patient discharged Performed By: #### L 100.0100, L500.2500 ####[facility] [address] [place], [address] RBC Normal 4.6-6.2 [facility] Comment on above: Result Comment: Canc elled via OM: Order cancelled - Patient discharged Performed By: #### L 100.0100, L500.2500 ####[facility] [address] [place], [address] RDW CV Normal 11.6-14.6 [facility] Comment on above: Result Comment: Canc elled via OM: Order cancelled - Patient discharged Performed By: #### L 100.0100, L500.2500 ####[facility] [address] [place], [address] RDW SD Normal 35.1-43.9 [facility] Comment on above: Result Comment: Canc elled via OM: Order cancelled - Patient discharged Performed By: #### L 100.0100, L500.2500 ####[facility] [address] [place], [address] WBC Normal 4.4-11.0 [facility] Comment on above: Result Comment: Canc elled via OM: Order cancelled - Patient discharged Performed By: #### L 100.0100, L500.2500 ####[facility] [address] [place], [address] Basic Metabolic Profile (BMP )on 04-14-2024 BUN Normal 7-18 [facility] Comment on above: Result Comment: Canc elled via OM: Order cancelled - Patient discharged Performed By: #### L 100.0100, L500.2500 ####[facility] [address] [place], [address] BUN/CRE Normal 10-20 [facility] Comment on above: Result Comment: Canc elled via OM: Order cancelled - Patient discharged Performed By: #### L 100.0100, L500.2500 ####[facility] [address] [place], [address] CA,Total Normal 8.5-10.1 [facility] Comment on above: Result Comment: Canc elled via OM: Order cancelled - Patient discharged Performed By: #### L 100.0100, L500.2500 ####[facility] [address] [place], [address] CL Normal 98-107 [facility] Comment on above: Result Comment: Canc elled via OM: Order cancelled - Patient discharged Performed By: #### L 100.0100, L500.2500 ####[facility] [address] [place], [address] CO2 Normal 21.0-32.0 [facility] Comment on above: Result Comment: Canc elled via OM: Order cancelled - Patient discharged Performed By: #### L 100.0100, L500.2500 ####[facility] [address] [place], [address] CREAT,SERUM Normal 0.70-1.30 [facility] Comment on above: Result Comment: Canc elled via OM: Order cancelled - Patient discharged Performed By: #### L 100.0100, L500.2500 ####[facility] [address] [place], [address] EST GFR Normal >60 [facility] Comment on above: Result Comment: Canc elled via OM: Order cancelled - Patient discharged Performed By: #### L 100.0100, L500.2500 ####[facility] [address] [place], [address] EST GFR - AA Normal >60 [facility] Comment on above: Result Comment: Canc elled via OM: Order cancelled - Patient discharged Performed By: #### L 100.0100, L500.2500 ####[facility] [address] [place], [address] GAP Normal 5-15 [facility] Comment on above: Result Comment: Canc elled via OM: Order cancelled - Patient discharged Performed By: #### L 100.0100, L500.2500 ####[facility] [address] [place], [address] GLU Normal 74-106 [facility] Comment on above: Result Comment: Canc elled via OM: Order cancelled - Patient discharged Performed By: #### L 100.0100, L500.2500 ####[facility] [address] [place], [address] Potassium Normal 3.5-5.1 [facility] Comment on above: Result Comment: Canc elled via OM: Order cancelled - Patient discharged Performed By: #### L 100.0100, L500.2500 ####[facility] [address] [place], [address] Basic Metabolic Profile (BMP) Normal 136-145 [facility] Comment on above: Result Comment: Canc elled via OM: Order cancelled - Patient discharged Performed By: #### L 100.0100, L500.2500 ####[facility] [address] [place], [address] CBC W/Diff, Automatedon 10-2 -2023 Absolute Neut Normal 2.0-7.7 [facility] Comment on above: Result Comment: Canc elled via OM: Order cancelled - Patient discharged Performed By: #### L 100.0100, L500.2500 ####[facility] [address] [place], [address] HCT Normal 40-54 [facility] Comment on above: Result Comment: Canc elled via OM: Order cancelled - Patient discharged Performed By: #### L 100.0100, L500.2500 ####[facility] [address] [place], [address] HGB Normal 13.0-16.5 [facility] Comment on above: Result Comment: Canc elled via OM: Order cancelled - Patient discharged Performed By: #### L 100.0100, L500.2500 ####[facility] [address] [place], [address] MCH Normal 27.0-32.0 [facility] Comment on above: Result Comment: Canc elled via OM: Order cancelled - Patient discharged Performed By: #### L 100.0100, L500.2500 ####[facility] [address] [place], [address] MCHC Normal 32-36 [facility] Comment on above: Result Comment: Canc elled via OM: Order cancelled - Patient discharged Performed By: #### L 100.0100, L500.2500 ####[facility] [address] [place], [address] MCV Normal 80-94 [facility] Comment on above: Result Comment: Canc elled via OM: Order cancelled - Patient discharged Performed By: #### L 100.0100, L500.2500 ####[facility] [address] [place], [address] NEUT% Normal 47-70 [facility] Comment on above: Result Comment: Canc elled via OM: Order cancelled - Patient discharged Performed By: #### L 100.0100, L500.2500 ####[facility] [address] [place], [address] PLT Normal 150-450 [facility] Comment on above: Result Comment: Canc elled via OM: Order cancelled - Patient discharged Performed By: #### L 100.0100, L500.2500 ####[facility] [address] [place], [address] RBC Normal 4.6-6.2 [facility] Comment on above: Result Comment: Canc elled via OM: Order cancelled - Patient discharged Performed By: #### L 100.0100, L500.2500 ####[facility] [address] [place], [address] RDW CV Normal 11.6-14.6 [facility] Comment on above: Result Comment: Canc elled via OM: Order cancelled - Patient discharged Performed By: #### L 100.0100, L500.2500 ####[facility] [address] [place], [address] RDW SD Normal 35.1-43.9 [facility] Comment on above: Result Comment: Canc elled via OM: Order cancelled - Patient discharged Performed By: #### L 100.0100, L500.2500 ####[facility] [address] [place], [address] WBC Normal 4.4-11.0 [facility] Comment on above: Result Comment: Canc elled via OM: Order cancelled - Patient discharged Performed By: #### L 100.0100, L500.2500 ####[facility] [address] [place], [address] Basic Metabolic Profile (BMP )on 04-13-2024 BUN Normal 7-18 [facility] Comment on above: Result Comment: Canc elled via OM: Order cancelled - Patient discharged Performed By: #### L 100.0100, L500.2500 ####[facility] [address] [place], [address] BUN/CRE Normal 10-20 [facility] Comment on above: Result Comment: Canc elled via OM: Order cancelled - Patient discharged Performed By: #### L 100.0100, L500.2500 ####[facility] [address] [place], [address] CA,Total Normal 8.5-10.1 [facility] Comment on above: Result Comment: Canc elled via OM: Order cancelled - Patient discharged Performed By: #### L 100.0100, L500.2500 ####[facility] [address] [place], [address] CL Normal 98-107 [facility] Comment on above: Result Comment: Canc elled via OM: Order cancelled - Patient discharged Performed By: #### L 100.0100, L500.2500 ####[facility] [address] [place], [address] CO2 Normal 21.0-32.0 [facility] Comment on above: Result Comment: Canc elled via OM: Order cancelled - Patient discharged Performed By: #### L 100.0100, L500.2500 ####[facility] [address] [place], [address] CREAT,SERUM Normal 0.70-1.30 [facility] Comment on above: Result Comment: Canc elled via OM: Order cancelled - Patient discharged Performed By: #### L 100.0100, L500.2500 ####[facility] [address] [place], [address] EST GFR Normal >60 [facility] Comment on above: Result Comment: Canc elled via OM: Order cancelled - Patient discharged Performed By: #### L 100.0100, L500.2500 ####[facility] [address] [place], [address] EST GFR - AA Normal >60 [facility] Comment on above: Result Comment: Canc elled via OM: Order cancelled - Patient discharged Performed By: #### L 100.0100, L500.2500 ####[facility] [address] [place], [address] GAP Normal 5-15 [facility] Comment on above: Result Comment: Canc elled via OM: Order cancelled - Patient discharged Performed By: #### L 100.0100, L500.2500 ####[facility] [address] [place], [address] GLU Normal 74-106 [facility] Comment on above: Result Comment: Canc elled via OM: Order cancelled - Patient discharged Performed By: #### L 100.0100, L500.2500 ####[facility] [address] [place], [address] Potassium Normal 3.5-5.1 [facility] Comment on above: Result Comment: Canc elled via OM: Order cancelled - Patient discharged Performed By: #### L 100.0100, L500.2500 ####[facility] [address] [place], [address] Basic Metabolic Profile (BMP) Normal 136-145 [facility] Comment on above: Result Comment: Canc elled via OM: Order cancelled - Patient discharged Performed By: #### L 100.0100, L500.2500 ####[facility] [address] [place], [address] CBC W/Diff, Automatedon 10-2 -2023 Absolute Neut Normal 2.0-7.7 [facility] Comment on above: Result Comment: Canc elled via OM: Order cancelled - Patient discharged Performed By: #### L 100.0100, L500.2500 ####[facility] [address] [place], [address] HCT Normal 40-54 [facility] Comment on above: Result Comment: Canc elled via OM: Order cancelled - Patient discharged Performed By: #### L 100.0100, L500.2500 ####[facility] [address] [place], [address] HGB Normal 13.0-16.5 [facility] Comment on above: Result Comment: Canc elled via OM: Order cancelled - Patient discharged Performed By: #### L 100.0100, L500.2500 ####[facility] [address] [place], [address] MCH Normal 27.0-32.0 [facility] Comment on above: Result Comment: Canc elled via OM: Order cancelled - Patient discharged Performed By: #### L 100.0100, L500.2500 ####[facility] [address] [place], [address] MCHC Normal 32-36 [facility] Comment on above: Result Comment: Canc elled via OM: Order cancelled - Patient discharged Performed By: #### L 100.0100, L500.2500 ####[facility] [address] [place], [address] MCV Normal 80-94 [facility] Comment on above: Result Comment: Canc elled via OM: Order cancelled - Patient discharged Performed By: #### L 100.0100, L500.2500 ####[facility] [address] [place], [address] NEUT% Normal 47-70 [facility] Comment on above: Result Comment: Canc elled via OM: Order cancelled - Patient discharged Performed By: #### L 100.0100, L500.2500 ####[facility] [address] [place], [address] PLT Normal 150-450 [facility] Comment on above: Result Comment: Canc elled via OM: Order cancelled - Patient discharged Performed By: #### L 100.0100, L500.2500 ####[facility] [address] [place], [address] RBC Normal 4.6-6.2 [facility] Comment on above: Result Comment: Canc elled via OM: Order cancelled - Patient discharged Performed By: #### L 100.0100, L500.2500 ####[facility] [address] [place], [address] RDW CV Normal 11.6-14.6 [facility] Comment on above: Result Comment: Canc elled via OM: Order cancelled - Patient discharged Performed By: #### L 100.0100, L500.2500 ####[facility] [address] [place], [address] RDW SD Normal 35.1-43.9 [facility] Comment on above: Result Comment: Canc elled via OM: Order cancelled - Patient discharged Performed By: #### L 100.0100, L500.2500 ####[facility] [address] [place], [address] WBC Normal 4.4-11.0 [facility] Comment on above: Result Comment: Canc elled via OM: Order cancelled - Patient discharged Performed By: #### L 100.0100, L500.2500 ####[facility] [address] [place], [address] Basic Metabolic Profile (BMP )on 04-12-2024 BUN/CRE 21.1 RATIO High 10- [facility] Comment on above: Order Comment: 306-2 Performed By: #### L 100.0500, L500.2500 ####[facility] [address] [place], [address] CA,Total 10.1 mg/dL Normal 8.5-10.1 [facility] Comment on above: Order Comment: 306-2 Performed By: #### L 100.0500, L500.2500 ####[facility] [address] [place], [address] Chloride [Moles/Vol] 106 mmol/L Normal 98-107 [facility] Comment on above: Order Comment: 306-2 Performed By: #### L 100.0500, L500.2500 ####[facility] [address] [place], [address] CO2 [Moles/Vol] 27.0 mmol/L Normal 21.0-32.0 [facility] Comment on above: Order Comment: 306-2 Performed By: #### L 100.0500, L500.2500 ####[facility] [address] [place], [address] Creatinine [Mass/Vol] 1.28 mg/dL Normal 0.70-1.30 [facility] Comment on above: Order Comment: 306-2 Result Comment: The validity of the calculated GFR GFRAA in patients over70 years has not been determined. Clinical correlation isessential. Performed By: #### L 100.0500, L500.2500 ####[facility] [address] [place], [address] EST GFR - AA 71 mL/min Normal >60 [facility] Comment on above: Order Comment: 306-2 Result Comment: Afri can [place] GFR Calc Performed By: #### L 100.0500, L500.2500 ####[facility] [address] [place], [address] GAP 7 Normal 5-15 [facility] Comment on above: Order Comment: 306-2 Performed By: #### L 100.0500, L500.2500 ####[facility] [address] [place], [address] GFR/1.73 sq M.predicted among non-blacks MDRD (S/P/Bld) [Vol rate/Area] 58 mL/min/{1.73_m2} Low >60 [facility] Comment on above: Order Comment: 306-2 Result Comment: Non- GFR Calc Performed By: #### L 100.0500, L500.2500 ####[facility] [address] [place], [address] Glucose [Mass/Vol] 94 mg/dL Normal 74-106 [facility] Comment on above: Order Comment: 306-2 Performed By: #### L 100.0500, L500.2500 ####[facility] [address] [place], [address] Potassium [Moles/Vol] 3.6 mmol/L Normal 3.5-5.1 [facility] Comment on above: Order Comment: 306-2 Performed By: #### L 100.0500, L500.2500 ####[facility] [address] [place], [address] Sodium [Moles/Vol] 140 mmol/L Normal 136-145 [facility] Comment on above: Order Comment: 306-2 Performed By: #### L 100.0500, L500.2500 ####[facility] [address] [place], [address] Urea nitrogen [Mass/Vol] 27 mg/dL High 7-18 [facility] Comment on above: Order Comment: 306-2 Performed By: #### L 100.0500, L500.2500 ####[facility] [address] [place], [address] BUN Normal 7-18 [facility] Comment on above: Result Comment: Canc elled via OM: Order cancelled - Patient discharged Performed By: #### L 500.2500, L100.0100 ####[facility] [address] [place], [address] BUN/CRE Normal 10-20 [facility] Comment on above: Result Comment: Canc elled via OM: Order cancelled - Patient discharged Performed By: #### L 500.2500, L100.0100 ####[facility] [address] [place], [address] CA,Total Normal 8.5-10.1 [facility] Comment on above: Result Comment: Canc elled via OM: Order cancelled - Patient discharged Performed By: #### L 500.2500, L100.0100 ####[facility] [address] [place], [address] CL Normal 98-107 [facility] Comment on above: Result Comment: Canc elled via OM: Order cancelled - Patient discharged Performed By: #### L 500.2500, L100.0100 ####[facility] [address] [place], [address] CO2 Normal 21.0-32.0 [facility] Comment on above: Result Comment: Canc elled via OM: Order cancelled - Patient discharged Performed By: #### L 500.2500, L100.0100 ####[facility] [address] [place], [address] CREAT,SERUM Normal 0.70-1.30 [facility] Comment on above: Result Comment: Canc elled via OM: Order cancelled - Patient discharged Performed By: #### L 500.2500, L100.0100 ####[facility] [address] [place], [address] EST GFR Normal >60 [facility] Comment on above: Result Comment: Canc elled via OM: Order cancelled - Patient discharged Performed By: #### L 500.2500, L100.0100 ####[facility] [address] [place], [address] EST GFR - AA Normal >60 [facility] Comment on above: Result Comment: Canc elled via OM: Order cancelled - Patient discharged Performed By: #### L 500.2500, L100.0100 ####[facility] [address] [place], [address] GAP Normal 5-15 [facility] Comment on above: Result Comment: Canc elled via OM: Order cancelled - Patient discharged Performed By: #### L 500.2500, L100.0100 ####[facility] [address] [place], [address] GLU Normal 74-106 [facility] Comment on above: Result Comment: Canc elled via OM: Order cancelled - Patient discharged Performed By: #### L 500.2500, L100.0100 ####[facility] [address] [place], [address] Potassium Normal 3.5-5.1 [facility] Comment on above: Result Comment: Canc elled via OM: Order cancelled - Patient discharged Performed By: #### L 500.2500, L100.0100 ####[facility] [address] [place], [address] Basic Metabolic Profile (BMP) Normal 136-145 [facility] Comment on above: Result Comment: Canc elled via OM: Order cancelled - Patient discharged Performed By: #### L 500.2500, L100.0100 ####[facility] [address] [place], [address] CBC W/Diff, Automatedon 10-2 Absolute Neut Normal 2.0-7.7 [facility] Comment on above: Result Comment: Canc elled via OM: Order cancelled - Patient discharged Performed By: #### L 500.2500, L100.0100 ####[facility] [address] [place], [address] HCT Normal 40-54 [facility] Comment on above: Result Comment: Canc elled via OM: Order cancelled - Patient discharged Performed By: #### L 500.2500, L100.0100 ####[facility] [address] [place], [address] HGB Normal 13.0-16.5 [facility] Comment on above: Result Comment: Canc elled via OM: Order cancelled - Patient discharged Performed By: #### L 500.2500, L100.0100 ####[facility] [address] [place], [address] MCH Normal 27.0-32.0 [facility] Comment on above: Result Comment: Canc elled via OM: Order cancelled - Patient discharged Performed By: #### L 500.2500, L100.0100 ####[facility] [address] [place], [address] MCHC Normal 32-36 [facility] Comment on above: Result Comment: Canc elled via OM: Order cancelled - Patient discharged Performed By: #### L 500.2500, L100.0100 ####[facility] [address] [place], [address] MCV Normal 80-94 [facility] Comment on above: Result Comment: Canc elled via OM: Order cancelled - Patient discharged Performed By: #### L 500.2500, L100.0100 ####[facility] [address] [place], [address] NEUT% Normal 47-70 [facility] Comment on above: Result Comment: Canc elled via OM: Order cancelled - Patient discharged Performed By: #### L 500.2500, L100.0100 ####[facility] [address] [place], [address] PLT Normal 150-450 [facility] Comment on above: Result Comment: Canc elled via OM: Order cancelled - Patient discharged Performed By: #### L 500.2500, L100.0100 ####[facility] [address] [place], [address] RBC Normal 4.6-6.2 [facility] Comment on above: Result Comment: Canc elled via OM: Order cancelled - Patient discharged Performed By: #### L 500.2500, L100.0100 ####[facility] [address] [place], [address] RDW CV Normal 11.6-14.6 [facility] Comment on above: Result Comment: Canc elled via OM: Order cancelled - Patient discharged Performed By: #### L 500.2500, L100.0100 ####[facility] [address] [place], [address] RDW SD Normal 35.1-43.9 [facility] Comment on above: Result Comment: Canc elled via OM: Order cancelled - Patient discharged Performed By: #### L 500.2500, L100.0100 ####[facility] [address] [place], [address] WBC Normal 4.4-11.0 [facility] Comment on above: Result Comment: Canc elled via OM: Order cancelled - Patient discharged Performed By: #### L 500.2500, L100.0100 ####[facility] [address] [place], [address] CBC-Complete Blood Cnt No Di ffon 04-12-2024 Erythrocyte distribution width (RBC) [Ratio] 13.3 % Normal 11.6-14.6 [facility] Comment on above: Order Comment: 306-2 Performed By: #### L 100.0500, L500.2500 ####[facility] [address] [place], [address] Hematocrit (Bld) [Volume fraction] 49.2 % Normal 40-54 [facility] Comment on above: Order Comment: 306-2 Performed By: #### L 100.0500, L500.2500 ####[facility] [address] [place], [address] Hemoglobin (Bld) [Mass/Vol] 16.4 g/dL Normal 13.0-16.5 [facility] Comment on above: Order Comment: 306-2 Performed By: #### L 100.0500, L500.2500 ####[facility] [address] [place], [address] MCH (RBC) [Entitic mass] 33.4 pg High 27.0-32.0 [facility] Comment on above: Order Comment: 306-2 Performed By: #### L 100.0500, L500.2500 ####[facility] [address] [place], [address] MCHC (RBC) [Mass/Vol] 33.3 g/dL Normal 32-36 [facility] Comment on above: Order Comment: 306-2 Performed By: #### L 100.0500, L500.2500 ####[facility] [address] [place], [address] MCV (RBC) [Entitic vol] 100.2 fL High 80-94 [facility] Comment on above: Order Comment: 306-2 Performed By: #### L 100.0500, L500.2500 ####[facility] [address] [place], [address] Platelet mean volume (Bld) [Entitic vol] 10.1 fL Normal 6.2-12.0 [facility] Comment on above: Order Comment: 306-2 Performed By: #### L 100.0500, L500.2500 ####[facility] [address] [place], [address] Platelets (Bld) [#/Vol] 305 10*3/uL Normal 150-450 [facility] Comment on above: Order Comment: 306-2 Performed By: #### L 100.0500, L500.2500 ####[facility] [address] [place], [address] RBC (Bld) [#/Vol] 4.91 10*6/uL Normal 4.6-6.2 [facility] Comment on above: Order Comment: 306-2 Performed By: #### L 100.0500, L500.2500 ####[facility] [address] [place], [address] RDW SD 49.8 fl High 35.1-43.9 [facility] Comment on above: Order Comment: 306-2 Performed By: #### L 100.0500, L500.2500 ####[facility] [address] [place], [address] WBC (Bld) [#/Vol] 7.4 10*3/uL Normal 4.4-11.0 [facility] Comment on above: Order Comment: 306-2 Performed By: #### L 100.0500, L500.2500 ####[facility] [address] [place], [address] Basic Metabolic Profile (BMP )on 04-11-2024 BUN Normal 7-18 [facility] Comment on above: Result Comment: Canc elled via OM: Order cancelled - Patient discharged Performed By: #### L 500.2500, L100.0100 ####[facility] [address] [place], [address] BUN/CRE Normal 10-20 [facility] Comment on above: Result Comment: Canc elled via OM: Order cancelled - Patient discharged Performed By: #### L 500.2500, L100.0100 ####[facility] [address] [place], [address] CA,Total Normal 8.5-10.1 [facility] Comment on above: Result Comment: Canc elled via OM: Order cancelled - Patient discharged Performed By: #### L 500.2500, L100.0100 ####[facility] [address] [place], [address] CL Normal 98-107 [facility] Comment on above: Result Comment: Canc elled via OM: Order cancelled - Patient discharged Performed By: #### L 500.2500, L100.0100 ####[facility] [address] [place], [address] CO2 Normal 21.0-32.0 [facility] Comment on above: Result Comment: Canc elled via OM: Order cancelled - Patient discharged Performed By: #### L 500.2500, L100.0100 ####[facility] [address] [place], [address] CREAT,SERUM Normal 0.70-1.30 [facility] Comment on above: Result Comment: Canc elled via OM: Order cancelled - Patient discharged Performed By: #### L 500.2500, L100.0100 ####[facility] [address] [place], [address] EST GFR Normal >60 [facility] Comment on above: Result Comment: Canc elled via OM: Order cancelled - Patient discharged Performed By: #### L 500.2500, L100.0100 ####[facility] [address] [place], [address] EST GFR - AA Normal >60 [facility] Comment on above: Result Comment: Canc elled via OM: Order cancelled - Patient discharged Performed By: #### L 500.2500, L100.0100 ####[facility] [address] [place], [address] GAP Normal 5-15 [facility] Comment on above: Result Comment: Canc elled via OM: Order cancelled - Patient discharged Performed By: #### L 500.2500, L100.0100 ####[facility] [address] [place], [address] GLU Normal 74-106 [facility] Comment on above: Result Comment: Canc elled via OM: Order cancelled - Patient discharged Performed By: #### L 500.2500, L100.0100 ####[facility] [address] [place], [address] Potassium Normal 3.5-5.1 [facility] Comment on above: Result Comment: Canc elled via OM: Order cancelled - Patient discharged Performed By: #### L 500.2500, L100.0100 ####[facility] [address] [place], [address] Basic Metabolic Profile (BMP) Normal 136-145 [facility] Comment on above: Result Comment: Canc elled via OM: Order cancelled - Patient discharged Performed By: #### L 500.2500, L100.0100 ####[facility] [address] [place], [address] CBC W/Diff, Automatedon 10-2 Absolute Neut Normal 2.0-7.7 [facility] Comment on above: Result Comment: Canc elled via OM: Order cancelled - Patient discharged Performed By: #### L 500.2500, L100.0100 ####[facility] [address] [place], [address] HCT Normal 40-54 [facility] Comment on above: Result Comment: Canc elled via OM: Order cancelled - Patient discharged Performed By: #### L 500.2500, L100.0100 ####[facility] [address] [place], [address] HGB Normal 13.0-16.5 [facility] Comment on above: Result Comment: Canc elled via OM: Order cancelled - Patient discharged Performed By: #### L 500.2500, L100.0100 ####[facility] [address] [place], [address] MCH Normal 27.0-32.0 [facility] Comment on above: Result Comment: Canc elled via OM: Order cancelled - Patient discharged Performed By: #### L 500.2500, L100.0100 ####[facility] [address] [place], [address] MCHC Normal 32-36 [facility] Comment on above: Result Comment: Canc elled via OM: Order cancelled - Patient discharged Performed By: #### L 500.2500, L100.0100 ####[facility] [address] [place], [address] MCV Normal 80-94 [facility] Comment on above: Result Comment: Canc elled via OM: Order cancelled - Patient discharged Performed By: #### L 500.2500, L100.0100 ####[facility] [address] [place], [address] NEUT% Normal 47-70 [facility] Comment on above: Result Comment: Canc elled via OM: Order cancelled - Patient discharged Performed By: #### L 500.2500, L100.0100 ####[facility] [address] [place], [address] PLT Normal 150-450 [facility] Comment on above: Result Comment: Canc elled via OM: Order cancelled - Patient discharged Performed By: #### L 500.2500, L100.0100 ####[facility] [address] [place], [address] RBC Normal 4.6-6.2 [facility] Comment on above: Result Comment: Canc elled via OM: Order cancelled - Patient discharged Performed By: #### L 500.2500, L100.0100 ####[facility] [address] [place], [address] RDW CV Normal 11.6-14.6 [facility] Comment on above: Result Comment: Canc elled via OM: Order cancelled - Patient discharged Performed By: #### L 500.2500, L100.0100 ####[facility] [address] [place], [address] RDW SD Normal 35.1-43.9 [facility] Comment on above: Result Comment: Canc elled via OM: Order cancelled - Patient discharged Performed By: #### L 500.2500, L100.0100 ####[facility] [address] [place], [address] WBC Normal 4.4-11.0 [facility] Comment on above: Result Comment: Canc elled via OM: Order cancelled - Patient discharged Performed By: #### L 500.2500, L100.0100 ####[facility] [address] [place], [address] Basic Metabolic Profile (BMP )on 04-10-2024 BUN/CRE 16.1 RATIO Normal 10-20 [facility] Comment on above: Performed By: #### L 500.2500, L100.0100 ####[facility] [address] [place], [address] CA,Total 9.4 mg/dL Normal 8.5-10.1 [facility] Comment on above: Performed By: #### L 500.2500, L100.0100 ####[facility] [address] [place], [address] Chloride [Moles/Vol] 106 mmol/L Normal 98-107 [facility] Comment on above: Performed By: #### L 500.2500, L100.0100 ####[facility] [address] [place], [address] CO2 [Moles/Vol] 25.0 mmol/L Normal 21.0-32.0 [facility] Comment on above: Performed By: #### L 500.2500, L100.0100 ####[facility] [address] [place], [address] Creatinine [Mass/Vol] 1.74 mg/dL High 0.70-1.30 [facility] Comment on above: Result Comment: The validity of the calculated GFR GFRAA in patients over70 years has not been determined. Clinical correlation isessential. Performed By: #### L 500.2500, L100.0100 ####[facility] [address] [place], [address] ECRCL 33.61 ml/min Normal [facility] Comment on above: Performed By: #### L 500.2500, L100.0100 ####[facility] [address] [place], [address] EST GFR - AA 50 mL/min Low >60 [facility] Comment on above: Result Comment: Afri can [place] GFR Calc Performed By: #### L 500.2500, L100.0100 ####[facility] [address] [place], [address] GAP 5 Normal 5-15 [facility] Comment on above: Performed By: #### L 500.2500, L100.0100 ####[facility] [address] [place], [address] GFR/1.73 sq M.predicted among non-blacks MDRD (S/P/Bld) [Vol rate/Area] 41 mL/min/{1.73_m2} Low >60 [facility] Comment on above: Result Comment: Non- GFR Calc Performed By: #### L 500.2500, L100.0100 ####[facility] [address] [place], [address] Glucose [Mass/Vol] 90 mg/dL Normal 74-106 [facility] Comment on above: Performed By: #### L 500.2500, L100.0100 ####[facility] [address] [place], [address] Potassium [Moles/Vol] 4.1 mmol/L Normal 3.5-5.1 [facility] Comment on above: Performed By: #### L 500.2500, L100.0100 ####[facility] [address] [place], [address] Sodium [Moles/Vol] 136 mmol/L Normal 136-145 [facility] Comment on above: Performed By: #### L 500.2500, L100.0100 ####[facility] [address] [place], [address] Urea nitrogen [Mass/Vol] 28 mg/dL High 7-18 [facility] Comment on above: Performed By: #### L 500.2500, L100.0100 ####[facility] [address] [place], [address] CBC W/Diff, Automatedon 10-2 3-2023 Absolute Lymph 1.36 X10 3/uL Normal 0.83-4.51 [facility] Comment on above: Performed By: #### L 500.2500, L100.0100 ####[facility] [address] [place], [address] Absolute Neut 5.5 X10 3/uL Normal 2.0-7.7 [facility] Comment on above: Performed By: #### L 500.2500, L100.0100 ####[facility] [address] [place], [address] Basophils/100 WBC (Bld) 0.7 % Normal 0-1 [facility] Comment on above: Performed By: #### L 500.2500, L100.0100 ####[facility] [address] [place], [address] Eosinophils/100 WBC (Bld) 0.3 % Normal 0-5 [facility] Comment on above: Performed By: #### L 500.2500, L100.0100 ####[facility] [address] [place], [address] Erythrocyte distribution width (RBC) [Ratio] 13.4 % Normal 11.6-14.6 [facility] Comment on above: Performed By: #### L 500.2500, L100.0100 ####[facility] [address] [place], [address] Hematocrit (Bld) [Volume fraction] 45.6 % Normal 40-54 [facility] Comment on above: Performed By: #### L 500.2500, L100.0100 ####[facility] [address] [place], [address] Hemoglobin (Bld) [Mass/Vol] 15.4 g/dL Normal 13.0-16.5 [facility] Comment on above: Performed By: #### L 500.2500, L100.0100 ####[facility] [address] [place], [address] IG% 0.800 Normal 0.0-0.9 [facility] Comment on above: Result Comment: IG% - Immature Granulocytes (promyelocytes, myelocytes andmetamyelocytes) > 1% indicates that a LEFT SHIFT is Present. Performed By: #### L 500.2500, L100.0100 ####[facility] [address] [place], [address] Lymphocytes/100 WBC (Bld) 18.0 % Low 19-41 [facility] Comment on above: Performed By: #### L 500.2500, L100.0100 ####[facility] [address] [place], [address] MCH (RBC) [Entitic mass] 33.6 pg High 27.0-32.0 [facility] Comment on above: Performed By: #### L 500.2500, L100.0100 ####[facility] [address] [place], [address] MCHC (RBC) [Mass/Vol] 33.8 g/dL Normal 32-36 [facility] Comment on above: Performed By: #### L 500.2500, L100.0100 ####[facility] [address] [place], [address] MCV (RBC) [Entitic vol] 99.3 fL High 80-94 [facility] Comment on above: Performed By: #### L 500.2500, L100.0100 ####[facility] [address] [place], [address] Monocytes/100 WBC (Bld) 7.0 % Normal 0-10 [facility] Comment on above: Performed By: #### L 500.2500, L100.0100 ####[facility] [address] [place], [address] Neutrophils/100 WBC (Bld) 73.2 % High 47-70 [facility] Comment on above: Performed By: #### L 500.2500, L100.0100 ####[facility] [address] [place], [address] Nucleated RBC (Bld) [#/Vol] 0 10*3/uL Normal 0-5 [facility] Comment on above: Performed By: #### L 500.2500, L100.0100 ####[facility] [address] [place], [address] Platelet mean volume (Bld) [Entitic vol] 10.1 fL Normal 6.2-12.0 [facility] Comment on above: Performed By: #### L 500.2500, L100.0100 ####[facility] [address] [place], [address] Platelets (Bld) [#/Vol] 296 10*3/uL Normal 150-450 [facility] Comment on above: Performed By: #### L 500.2500, L100.0100 ####[facility] [address] [place], [address] RBC (Bld) [#/Vol] 4.59 10*6/uL Low 4.6-6.2 [facility] Comment on above: Performed By: #### L 500.2500, L100.0100 ####[facility] [address] [place], [address] RDW SD 48.8 fl High 35.1-43.9 [facility] Comment on above: Performed By: #### L 500.2500, L100.0100 ####[facility] [address] [place], [address] WBC (Bld) [#/Vol] 7.6 10*3/uL Normal 4.4-11.0 [facility] Comment on above: Performed By: #### L 500.2500, L100.0100 ####[facility] [address] [place], [address] Basic Metabolic Profile (BMP )on 04-09-2024 BUN/CRE 15.3 RATIO Normal - [facility] Comment on above: Performed By: #### L 500.2500, L100.0100 ####[facility] [address] [place], [address] CA,Total 9.8 mg/dL Normal 8.5-10.1 [facility] Comment on above: Performed By: #### L 500.2500, L100.0100 ####[facility] [address] [place], [address] Chloride [Moles/Vol] 107 mmol/L Normal 98-107 [facility] Comment on above: Performed By: #### L 500.2500, L100.0100 ####[facility] [address] [place], [address] CO2 [Moles/Vol] 26.0 mmol/L Normal 21.0-32.0 [facility] Comment on above: Performed By: #### L 500.2500, L100.0100 ####[facility] [address] [place], [address] Creatinine [Mass/Vol] 1.44 mg/dL High 0.70-1.30 [facility] Comment on above: Result Comment: The validity of the calculated GFR GFRAA in patients over70 years has not been determined. Clinical correlation isessential. Performed By: #### L 500.2500, L100.0100 ####[facility] [address] [place], [address] ECRCL 40.61 ml/min Normal [facility] Comment on above: Performed By: #### L 500.2500, L100.0100 ####[facility] [address] [place], [address] EST GFR - AA 62 mL/min Normal >60 [facility] Comment on above: Result Comment: Afri can [place] GFR Calc Performed By: #### L 500.2500, L100.0100 ####[facility] [address] [place], [address] GAP 4 Low 5-15 [facility] Comment on above: Performed By: #### L 500.2500, L100.0100 ####[facility] [address] [place], [address] GFR/1.73 sq M.predicted among non-blacks MDRD (S/P/Bld) [Vol rate/Area] 51 mL/min/{1.73_m2} Low >60 [facility] Comment on above: Result Comment: Non- GFR Calc Performed By: #### L 500.2500, L100.0100 ####[facility] [address] [place], [address] Glucose [Mass/Vol] 97 mg/dL Normal 74-106 [facility] Comment on above: Performed By: #### L 500.2500, L100.0100 ####[facility] [address] [place], [address] Potassium [Moles/Vol] 4.0 mmol/L Normal 3.5-5.1 [facility] Comment on above: Result Comment: Mode rate Hemolysis, Result may be falsely increased. Performed By: #### L 500.2500, L100.0100 ####[facility] [address] [place], [address] Sodium [Moles/Vol] 137 mmol/L Normal 136-145 [facility] Comment on above: Performed By: #### L 500.2500, L100.0100 ####[facility] [address] [place], [address] Urea nitrogen [Mass/Vol] 22 mg/dL High 7-18 [facility] Comment on above: Performed By: #### L 500.2500, L100.0100 ####[facility] [address] [place], [address] CBC W/Diff, Automatedon 10-2 -2023 Absolute Lymph 1.04 X10 3/uL Normal 0.83-4.51 [facility] Comment on above: Performed By: #### L 500.2500, L100.0100 ####[facility] [address] [place], [address] Absolute Neut 5.9 X10 3/uL Normal 2.0-7.7 [facility] Comment on above: Performed By: #### L 500.2500, L100.0100 ####[facility] [address] [place], [address] Basophils/100 WBC (Bld) 0.7 % Normal 0-1 [facility] Comment on above: Performed By: #### L 500.2500, L100.0100 ####[facility] [address] [place], [address] Eosinophils/100 WBC (Bld) 0.9 % Normal 0-5 [facility] Comment on above: Performed By: #### L 500.2500, L100.0100 ####[facility] [address] [place], [address] Erythrocyte distribution width (RBC) [Ratio] 13.2 % Normal 11.6-14.6 [facility] Comment on above: Performed By: #### L 500.2500, L100.0100 ####[facility] [address] [place], [address] Hematocrit (Bld) [Volume fraction] 45.7 % Normal 40-54 [facility] Comment on above: Performed By: #### L 500.2500, L100.0100 ####[facility] [address] [place], [address] Hemoglobin (Bld) [Mass/Vol] 15.0 g/dL Normal 13.0-16.5 [facility] Comment on above: Performed By: #### L 500.2500, L100.0100 ####[facility] [address] [place], [address] IG% 0.500 Normal 0.0-0.9 [facility] Comment on above: Result Comment: IG% - Immature Granulocytes (promyelocytes, myelocytes andmetamyelocytes) > 1% indicates that a LEFT SHIFT is Present. Performed By: #### L 500.2500, L100.0100 ####[facility] [address] [place], [address] Lymphocytes/100 WBC (Bld) 13.6 % Low 19-41 [facility] Comment on above: Performed By: #### L 500.2500, L100.0100 ####[facility] [address] [place], [address] MCH (RBC) [Entitic mass] 32.5 pg High 27.0-32.0 [facility] Comment on above: Performed By: #### L 500.2500, L100.0100 ####[facility] [address] [place], [address] MCHC (RBC) [Mass/Vol] 32.8 g/dL Normal 32-36 [facility] Comment on above: Performed By: #### L 500.2500, L100.0100 ####[facility] [address] [place], [address] MCV (RBC) [Entitic vol] 98.9 fL High 80-94 [facility] Comment on above: Performed By: #### L 500.2500, L100.0100 ####[facility] [address] [place], [address] Monocytes/100 WBC (Bld) 7.2 % Normal 0-10 [facility] Comment on above: Performed By: #### L 500.2500, L100.0100 ####[facility] [address] [place], [address] Neutrophils/100 WBC (Bld) 77.1 % High 47-70 [facility] Comment on above: Performed By: #### L 500.2500, L100.0100 ####[facility] [address] [place], [address] Nucleated RBC (Bld) [#/Vol] 0 10*3/uL Normal 0-5 [facility] Comment on above: Performed By: #### L 500.2500, L100.0100 ####[facility] [address] [place], [address] Platelet mean volume (Bld) [Entitic vol] 10.0 fL Normal 6.2-12.0 [facility] Comment on above: Performed By: #### L 500.2500, L100.0100 ####[facility] [address] [place], [address] Platelets (Bld) [#/Vol] 309 10*3/uL Normal 150-450 [facility] Comment on above: Performed By: #### L 500.2500, L100.0100 ####[facility] [address] [place], [address] RBC (Bld) [#/Vol] 4.62 10*6/uL Normal 4.6-6.2 [facility] Comment on above: Performed By: #### L 500.2500, L100.0100 ####[facility] [address] [place], [address] RDW SD 48.0 fl High 35.1-43.9 [facility] Comment on above: Performed By: #### L 500.2500, L100.0100 ####[facility] [address] [place], [address] WBC (Bld) [#/Vol] 7.7 10*3/uL Normal 4.4-11.0 [facility] Comment on above: Performed By: #### L 500.2500, L100.0100 ####[facility] [address] [place], [address] Basic Metabolic Profile (BMP )on 04-08-2024 BUN/CRE 10.4 RATIO Normal - [facility] Comment on above: Performed By: #### L 500.2500, L100.0100 ####[facility] [address] [place], [address] CA,Total 9.6 mg/dL Normal 8.5-10.1 [facility] Comment on above: Performed By: #### L 500.2500, L100.0100 ####[facility] [address] [place], [address] Chloride [Moles/Vol] 108 mmol/L High 98-107 [facility] Comment on above: Performed By: #### L 500.2500, L100.0100 ####[facility] [address] [place], [address] CO2 [Moles/Vol] 24.0 mmol/L Normal 21.0-32.0 [facility] Comment on above: Performed By: #### L 500.2500, L100.0100 ####[facility] [address] [place], [address] Creatinine [Mass/Vol] 1.15 mg/dL Normal 0.70-1.30 [facility] Comment on above: Result Comment: The validity of the calculated GFR GFRAA in patients over70 years has not been determined. Clinical correlation isessential. Performed By: #### L 500.2500, L100.0100 ####[facility] [address] [place], [address] ECRCL 50.86 ml/min Normal [facility] Comment on above: Performed By: #### L 500.2500, L100.0100 ####[facility] [address] [place], [address] EST GFR - AA 80 mL/min Normal >60 [facility] Comment on above: Result Comment: Afri can [place] GFR Calc Performed By: #### L 500.2500, L100.0100 ####[facility] [address] [place], [address] GAP 9 Normal 5-15 [facility] Comment on above: Performed By: #### L 500.2500, L100.0100 ####[facility] [address] [place], [address] GFR/1.73 sq M.predicted among non-blacks MDRD (S/P/Bld) [Vol rate/Area] 66 mL/min/{1.73_m2} Normal >60 [facility] Comment on above: Result Comment: Non- GFR Calc Performed By: #### L 500.2500, L100.0100 ####[facility] [address] [place], [address] Glucose [Mass/Vol] 92 mg/dL Normal 74-106 [facility] Comment on above: Performed By: #### L 500.2500, L100.0100 ####[facility] [address] [place], [address] Potassium [Moles/Vol] 3.9 mmol/L Normal 3.5-5.1 [facility] Comment on above: Result Comment: Slig ht Hemolysis, Result may be falsely increased. Performed By: #### L 500.2500, L100.0100 ####[facility] [address] [place], [address] Sodium [Moles/Vol] 142 mmol/L Normal 136-145 [facility] Comment on above: Performed By: #### L 500.2500, L100.0100 ####[facility] [address] [place], [address] Urea nitrogen [Mass/Vol] 12 mg/dL Normal 7-18 [facility] Comment on above: Performed By: #### L 500.2500, L100.0100 ####[facility] [address] [place], [address] CBC W/Diff, Automatedon 10-2 -2023 Absolute Lymph 1.20 X10 3/uL Normal 0.83-4.51 [facility] Comment on above: Performed By: #### L 500.2500, L100.0100 ####[facility] [address] [place], [address] Absolute Neut 4.1 X10 3/uL Normal 2.0-7.7 [facility] Comment on above: Performed By: #### L 500.2500, L100.0100 ####[facility] [address] [place], [address] Basophils/100 WBC (Bld) 1.3 % High 0-1 [facility] Comment on above: Performed By: #### L 500.2500, L100.0100 ####[facility] [address] [place], [address] Eosinophils/100 WBC (Bld) 2.0 % Normal 0-5 [facility] Comment on above: Performed By: #### L 500.2500, L100.0100 ####[facility] [address] [place], [address] Erythrocyte distribution width (RBC) [Ratio] 13.0 % Normal 11.6-14.6 [facility] Comment on above: Performed By: #### L 500.2500, L100.0100 ####[facility] [address] [place], [address] Hematocrit (Bld) [Volume fraction] 44.0 % Normal 40-54 [facility] Comment on above: Performed By: #### L 500.2500, L100.0100 ####[facility] [address] [place], [address] Hemoglobin (Bld) [Mass/Vol] 14.6 g/dL Normal 13.0-16.5 [facility] Comment on above: Performed By: #### L 500.2500, L100.0100 ####[facility] [address] [place], [address] IG% 0.300 Normal 0.0-0.9 [facility] Comment on above: Result Comment: IG% - Immature Granulocytes (promyelocytes, myelocytes andmetamyelocytes) > 1% indicates that a LEFT SHIFT is Present. Performed By: #### L 500.2500, L100.0100 ####[facility] [address] [place], [address] Lymphocytes/100 WBC (Bld) 20.0 % Normal 19-41 [facility] Comment on above: Performed By: #### L 500.2500, L100.0100 ####[facility] [address] [place], [address] MCH (RBC) [Entitic mass] 32.7 pg High 27.0-32.0 [facility] Comment on above: Performed By: #### L 500.2500, L100.0100 ####[facility] [address] [place], [address] MCHC (RBC) [Mass/Vol] 33.2 g/dL Normal 32-36 [facility] Comment on above: Performed By: #### L 500.2500, L100.0100 ####[facility] [address] [place], [address] MCV (RBC) [Entitic vol] 98.4 fL High 80-94 [facility] Comment on above: Performed By: #### L 500.2500, L100.0100 ####[facility] [address] [place], [address] Monocytes/100 WBC (Bld) 8.7 % Normal 0-10 [facility] Comment on above: Performed By: #### L 500.2500, L100.0100 ####[facility] [address] [place], [address] Neutrophils/100 WBC (Bld) 67.7 % Normal 47-70 [facility] Comment on above: Performed By: #### L 500.2500, L100.0100 ####[facility] [address] [place], [address] Nucleated RBC (Bld) [#/Vol] 0 10*3/uL Normal 0-5 [facility] Comment on above: Performed By: #### L 500.2500, L100.0100 ####[facility] [address] [place], [address] Platelet mean volume (Bld) [Entitic vol] 9.9 fL Normal 6.2-12.0 [facility] Comment on above: Performed By: #### L 500.2500, L100.0100 ####[facility] [address] [place], [address] Platelets (Bld) [#/Vol] 270 10*3/uL Normal 150-450 [facility] Comment on above: Performed By: #### L 500.2500, L100.0100 ####[facility] [address] [place], [address] RBC (Bld) [#/Vol] 4.47 10*6/uL Low 4.6-6.2 [facility] Comment on above: Performed By: #### L 500.2500, L100.0100 ####[facility] [address] [place], [address] RDW SD 47.0 fl High 35.1-43.9 [facility] Comment on above: Performed By: #### L 500.2500, L100.0100 ####[facility] [address] [place], [address] WBC (Bld) [#/Vol] 6.0 10*3/uL Normal 4.4-11.0 [facility] Comment on above: Performed By: #### L 500.2500, L100.0100 ####[facility] [address] [place], [address] Vitamin D,25 Hydroxyon 04-08 Vitamin D 25-OH 35.4 ng/mL Normal [facility] Comment on above: Result Comment: Teri min D 25(OH) Status Range Deficiency <20 ng/mL (50nmol/L) Insufficiency 20 - 30 ng/mL (50 - 75 nmol/L) Sufficiency 30 - 100 ng/mL (75 - 250 nmol/L) Toxicity >100 ng/mL (>250 nmol/L) Performed By: #### L 506.1000 ####[facility] [address] [place], [address] Basic Metabolic Profile (BMP )on 04-07-2024 BUN/CRE 16.2 RATIO Normal 04-07 [facility] Comment on above: Performed By: #### L 100.0100, L501.9520, L500.2500 ####[facility] [address] [place], [address] CA,Total 9.1 mg/dL Normal 8.5-10.1 [facility] Comment on above: Performed By: #### L 100.0100, L501.9520, L500.2500 ####[facility] [address] [place], [address] Chloride [Moles/Vol] 106 mmol/L Normal 98-107 [facility] Comment on above: Performed By: #### L 100.0100, L501.9520, L500.2500 ####[facility] [address] [place], [address] CO2 [Moles/Vol] 25.0 mmol/L Normal 21.0-32.0 [facility] Comment on above: Performed By: #### L 100.0100, L501.9520, L500.2500 ####[facility] [address] [place], [address] Creatinine [Mass/Vol] 1.05 mg/dL Normal 0.70-1.30 [facility] Comment on above: Result Comment: The validity of the calculated GFR GFRAA in patients over70 years has not been determined. Clinical correlation isessential. Performed By: #### L 100.0100, L501.9520, L500.2500 ####[facility] [address] [place], [address] ECRCL 55.70 ml/min Normal [facility] Comment on above: Performed By: #### L 100.0100, L501.9520, L500.2500 ####[facility] [address] [place], [address] EST GFR - AA 89 mL/min Normal >60 [facility] Comment on above: Result Comment: Afri can [place] GFR Calc Performed By: #### L 100.0100, L501.9520, L500.2500 ####[facility] [address] [place], [address] GAP 4 Low 5-15 [facility] Comment on above: Performed By: #### L 100.0100, L501.9520, L500.2500 ####[facility] [address] [place], [address] GFR/1.73 sq M.predicted among non-blacks MDRD (S/P/Bld) [Vol rate/Area] 73 mL/min/{1.73_m2} Normal >60 [facility] Comment on above: Result Comment: Non- GFR Calc Performed By: #### L 100.0100, L501.9520, L500.2500 ####[facility] [address] [place], [address] Glucose [Mass/Vol] 95 mg/dL Normal 74-106 [facility] Comment on above: Performed By: #### L 100.0100, L501.9520, L500.2500 ####[facility] [address] [place], [address] Potassium [Moles/Vol] 3.6 mmol/L Normal 3.5-5.1 [facility] Comment on above: Performed By: #### L 100.0100, L501.9520, L500.2500 ####[facility] [address] [place], [address] Sodium [Moles/Vol] 135 mmol/L Low 136-145 [facility] Comment on above: Performed By: #### L 100.0100, L501.9520, L500.2500 ####[facility] [address] [place], [address] Urea nitrogen [Mass/Vol] 17 mg/dL Normal 7-18 [facility] Comment on above: Performed By: #### L 100.0100, L501.9520, L500.2500 ####[facility] [address] [place], [address] CBC W/Diff, Automatedon 10-2 0-2024 Absolute Lymph 1.44 X10 3/uL Normal 0.83-4.51 [facility] Comment on above: Performed By: #### L 100.0100, L501.9520, L500.2500 ####[facility] [address] [place], [address] Absolute Neut 3.8 X10 3/uL Normal 2.0-7.7 [facility] Comment on above: Performed By: #### L 100.0100, L501.9520, L500.2500 ####[facility] [address] [place], [address] Basophils/100 WBC (Bld) 1.5 % High 0-1 [facility] Comment on above: Performed By: #### L 100.0100, L501.9520, L500.2500 ####[facility] [address] [place], [address] Eosinophils/100 WBC (Bld) 1.5 % Normal 0-5 [facility] Comment on above: Performed By: #### L 100.0100, L501.9520, L500.2500 ####[facility] [address] [place], [address] Erythrocyte distribution width (RBC) [Ratio] 12.8 % Normal 11.6-14.6 [facility] Comment on above: Performed By: #### L 100.0100, L501.9520, L500.2500 ####[facility] [address] [place], [address] Hematocrit (Bld) [Volume fraction] 42.4 % Normal 40-54 [facility] Comment on above: Performed By: #### L 100.0100, L501.9520, L500.2500 ####[facility] [address] [place], [address] Hemoglobin (Bld) [Mass/Vol] 14.2 g/dL Normal 13.0-16.5 [facility] Comment on above: Performed By: #### L 100.0100, L501.9520, L500.2500 ####[facility] [address] [place], [address] IG% 0.300 Normal 0.0-0.9 [facility] Comment on above: Result Comment: IG% - Immature Granulocytes (promyelocytes, myelocytes andmetamyelocytes) > 1% indicates that a LEFT SHIFT is Present. Performed By: #### L 100.0100, L501.9520, L500.2500 ####[facility] [address] [place], [address] Lymphocytes/100 WBC (Bld) 24.4 % Normal 19-41 [facility] Comment on above: Performed By: #### L 100.0100, L501.9520, L500.2500 ####[facility] [address] [place], [address] MCH (RBC) [Entitic mass] 32.8 pg High 27.0-32.0 [facility] Comment on above: Performed By: #### L 100.0100, L501.9520, L500.2500 ####[facility] [address] [place], [address] MCHC (RBC) [Mass/Vol] 33.5 g/dL Normal 32-36 [facility] Comment on above: Performed By: #### L 100.0100, L501.9520, L500.2500 ####[facility] [address] [place], [address] MCV (RBC) [Entitic vol] 97.9 fL High 80-94 [facility] Comment on above: Performed By: #### L 100.0100, L501.9520, L500.2500 ####[facility] [address] [place], [address] Monocytes/100 WBC (Bld) 7.8 % Normal 0-10 [facility] Comment on above: Performed By: #### L 100.0100, L501.9520, L500.2500 ####[facility] [address] [place], [address] Neutrophils/100 WBC (Bld) 64.5 % Normal 47-70 [facility] Comment on above: Performed By: #### L 100.0100, L501.9520, L500.2500 ####[facility] [address] [place], [address] Nucleated RBC (Bld) [#/Vol] 0 10*3/uL Normal 0-5 [facility] Comment on above: Performed By: #### L 100.0100, L501.9520, L500.2500 ####[facility] [address] [place], [address] Platelet mean volume (Bld) [Entitic vol] 9.8 fL Normal 6.2-12.0 [facility] Comment on above: Performed By: #### L 100.0100, L501.9520, L500.2500 ####[facility] [address] [place], [address] Platelets (Bld) [#/Vol] 292 10*3/uL Normal 150-450 [facility] Comment on above: Performed By: #### L 100.0100, L501.9520, L500.2500 ####[facility] [address] [place], [address] RBC (Bld) [#/Vol] 4.33 10*6/uL Low 4.6-6.2 [facility] Comment on above: Performed By: #### L 100.0100, L501.9520, L500.2500 ####[facility] [address] [place], [address] RDW SD 46.1 fl High 35.1-43.9 [facility] Comment on above: Performed By: #### L 100.0100, L501.9520, L500.2500 ####[facility] [address] [place], [address] WBC (Bld) [#/Vol] 5.9 10*3/uL Normal 4.4-11.0 [facility] Comment on above: Performed By: #### L 100.0100, L501.9520, L500.2500 ####[facility] [address] [place], [address] Thyroid Stim Hormone (TSH)on 04-07-2024 TSH 1.730 uIU/mL Normal 0.358-3.740 [facility] Comment on above: Performed By: #### L 100.0100, L501.9520, L500.2500 ####[facility] [address] [place], [address] 12 Lead EKGon 04-06-2024 12 Lead EKG Normal [facility] Basic Metabolic Profile (BMP )on 04-06-2024 BUN/CRE 16.2 RATIO Normal 04-07 [facility] Comment on above: Order Comment: 'TROP ' Serial specimen #1, #2 or #3: 1 Performed By: #### L 500.2500, L100.0100, L501.4020 ####[facility] [address] [place], [address] CA,Total 10.0 mg/dL Normal 8.5-10.1 [facility] Comment on above: Order Comment: 'TROP ' Serial specimen #1, #2 or #3: 1 Performed By: #### L 500.2500, L100.0100, L501.4020 ####[facility] [address] [place], [address] Chloride [Moles/Vol] 104 mmol/L Normal 98-107 [facility] Comment on above: Order Comment: 'TROP ' Serial specimen #1, #2 or #3: 1 Performed By: #### L 500.2500, L100.0100, L501.4020 ####[facility] [address] [place], [address] CO2 [Moles/Vol] 31.0 mmol/L Normal 21.0-32.0 [facility] Comment on above: Order Comment: 'TROP ' Serial specimen #1, #2 or #3: 1 Performed By: #### L 500.2500, L100.0100, L501.4020 ####[facility] [address] [place], [address] Creatinine [Mass/Vol] 1.36 mg/dL High 0.70-1.30 [facility] Comment on above: Order Comment: 'TROP ' Serial specimen #1, #2 or #3: 1 Result Comment: The validity of the calculated GFR GFRAA in patients over70 years has not been determined. Clinical correlation isessential. Performed By: #### L 500.2500, L100.0100, L501.4020 ####[facility] [address] [place], [address] ECRCL 42.94 ml/min Normal [facility] Comment on above: Order Comment: 'TROP ' Serial specimen #1, #2 or #3: 1 Performed By: #### L 500.2500, L100.0100, L501.4020 ####[facility] [address] [place], [address] EST GFR - AA 66 mL/min Normal >60 [facility] Comment on above: Order Comment: 'TROP ' Serial specimen #1, #2 or #3: 1 Result Comment: Afri can [place] GFR Calc Performed By: #### L 500.2500, L100.0100, L501.4020 ####[facility] [address] [place], [address] GAP 3 Low 5-15 [facility] Comment on above: Order Comment: 'TROP ' Serial specimen #1, #2 or #3: 1 Performed By: #### L 500.2500, L100.0100, L501.4020 ####[facility] [address] [place], [address] GFR/1.73 sq M.predicted among non-blacks MDRD (S/P/Bld) [Vol rate/Area] 54 mL/min/{1.73_m2} Low >60 [facility] Comment on above: Order Comment: 'TROP ' Serial specimen #1, #2 or #3: 1 Result Comment: Non- GFR Calc Performed By: #### L 500.2500, L100.0100, L501.4020 ####[facility] [address] [place], [address] Glucose [Mass/Vol] 99 mg/dL Normal 74-106 [facility] Comment on above: Order Comment: 'TROP ' Serial specimen #1, #2 or #3: 1 Performed By: #### L 500.2500, L100.0100, L501.4020 ####[facility] [address] [place], [address] Potassium [Moles/Vol] 4.1 mmol/L Normal 3.5-5.1 [facility] Comment on above: Order Comment: 'TROP ' Serial specimen #1, #2 or #3: 1 Performed By: #### L 500.2500, L100.0100, L501.4020 ####[facility] [address] [place], [address] Sodium [Moles/Vol] 138 mmol/L Normal 136-145 [facility] Comment on above: Order Comment: 'TROP ' Serial specimen #1, #2 or #3: 1 Performed By: #### L 500.2500, L100.0100, L501.4020 ####[facility] [address] [place], [address] Urea nitrogen [Mass/Vol] 22 mg/dL High 7-18 [facility] Comment on above: Order Comment: 'TROP ' Serial specimen #1, #2 or #3: 1 Performed By: #### L 500.2500, L100.0100, L501.4020 ####[facility] [address] [place], [address] Brain/Head without Contrasto n --2023 Brain/Head without Contrast Normal [facility] CBC W/Diff, Automatedon - Absolute Lymph 1.59 X10 3/uL Normal 0.83-4.51 [facility] Comment on above: Performed By: #### L 500.2500, L100.0100, L501.4020 ####[facility] [address] [place], [address] Absolute Neut 4.3 X10 3/uL Normal 2.0-7.7 [facility] Comment on above: Performed By: #### L 500.2500, L100.0100, L501.4020 ####[facility] [address] [place], [address] Basophils/100 WBC (Bld) 1.1 % High 0-1 [facility] Comment on above: Performed By: #### L 500.2500, L100.0100, L501.4020 ####[facility] [address] [place], [address] Eosinophils/100 WBC (Bld) 0.9 % Normal 0-5 [facility] Comment on above: Performed By: #### L 500.2500, L100.0100, L501.4020 ####[facility] [address] [place], [address] Erythrocyte distribution width (RBC) [Ratio] 13.0 % Normal 11.6-14.6 [facility] Comment on above: Performed By: #### L 500.2500, L100.0100, L501.4020 ####[facility] [address] [place], [address] Hematocrit (Bld) [Volume fraction] 49.3 % Normal 40-54 [facility] Comment on above: Performed By: #### L 500.2500, L100.0100, L501.4020 ####[facility] [address] [place], [address] Hemoglobin (Bld) [Mass/Vol] 17.0 g/dL High 13.0-16.5 [facility] Comment on above: Performed By: #### L 500.2500, L100.0100, L501.4020 ####[facility] [address] [place], [address] IG% 0.500 Normal 0.0-0.9 [facility] Comment on above: Result Comment: IG% - Immature Granulocytes (promyelocytes, myelocytes andmetamyelocytes) > 1% indicates that a LEFT SHIFT is Present. Performed By: #### L 500.2500, L100.0100, L501.4020 ####[facility] [address] [place], [address] Lymphocytes/100 WBC (Bld) 24.3 % Normal 19-41 [facility] Comment on above: Performed By: #### L 500.2500, L100.0100, L501.4020 ####[facility] [address] [place], [address] MCH (RBC) [Entitic mass] 33.5 pg High 27.0-32.0 [facility] Comment on above: Performed By: #### L 500.2500, L100.0100, L501.4020 ####[facility] [address] [place], [address] MCHC (RBC) [Mass/Vol] 34.5 g/dL Normal 32-36 [facility] Comment on above: Performed By: #### L 500.2500, L100.0100, L501.4020 ####[facility] [address] [place], [address] MCV (RBC) [Entitic vol] 97.0 fL High 80-94 [facility] Comment on above: Performed By: #### L 500.2500, L100.0100, L501.4020 ####[facility] [address] [place], [address] Monocytes/100 WBC (Bld) 6.9 % Normal 0-10 [facility] Comment on above: Performed By: #### L 500.2500, L100.0100, L501.4020 ####[facility] [address] [place], [address] Neutrophils/100 WBC (Bld) 66.3 % Normal 47-70 [facility] Comment on above: Performed By: #### L 500.2500, L100.0100, L501.4020 ####[facility] [address] [place], [address] Nucleated RBC (Bld) [#/Vol] 0 10*3/uL Normal 0-5 [facility] Comment on above: Performed By: #### L 500.2500, L100.0100, L501.4020 ####[facility] [address] [place], [address] Platelet mean volume (Bld) [Entitic vol] 10.2 fL Normal 6.2-12.0 [facility] Comment on above: Performed By: #### L 500.2500, L100.0100, L501.4020 ####[facility] [address] [place], [address] Platelets (Bld) [#/Vol] 329 10*3/uL Normal 150-450 [facility] Comment on above: Performed By: #### L 500.2500, L100.0100, L501.4020 ####[facility] [address] [place], [address] RBC (Bld) [#/Vol] 5.08 10*6/uL Normal 4.6-6.2 [facility] Comment on above: Performed By: #### L 500.2500, L100.0100, L501.4020 ####[facility] [address] [place], [address] RDW SD 46.7 fl High 35.1-43.9 [facility] Comment on above: Performed By: #### L 500.2500, L100.0100, L501.4020 ####[facility] [address] [place], [address] WBC (Bld) [#/Vol] 6.5 10*3/uL Normal 4.4-11.0 [facility] Comment on above: Performed By: #### L 500.2500, L100.0100, L501.4020 ####[facility] [address] [place], [address] Chest 1 View (Portable)on Chest 1 View (Portable) Normal [facility] Echo Completeon 04-06-2024 Echo Complete Normal [facility] Emergency Department Summary on 04-06-2024 Emergency Department Summary Normal [facility] H AND P Exam - Hospitaliston 04-06-2024 H&P Exam - Hospitalist Normal [facility] L501.4020on 04-06-2024 TROPONIN-I HS 18 pg/mL Normal 3.0-78.0 [facility] Comment on above: Order Comment: 'TROP ' Serial specimen #1, #2 or #3: 2 Result Comment: Plea se Note: New Test Units and Gender Specific Reference Ranges. For more information see Policy Stat Procedure [place] High Sensitivity Troponin (TNIH) and attachments. Performed By: #### L 501.4020 ####[facility] [address] [place], [address] TROPONIN-I HS 9 pg/mL Normal 3.0-78.0 [facility] Comment on above: Order Comment: 'TROP ' Serial specimen #1, #2 or #3: 1 Result Comment: Brant gregorio Note: New Test Units and Gender Specific Reference Ranges. For more information see Policy Stat Procedure [place] High Sensitivity Troponin (TNIH) and attachments. Performed By: #### L 500.2500, L100.0100, L501.4020 ####[facility] [address] [place], [address] Lumbar Spine 2 or 3 Viewson 04-06-2024 Lumbar Spine 2 or 3 Views Normal [facility] Magnesiumon 04-06-2024 Magnesium [Mass/Vol] 2.3 mg/dL Normal 1.6-2.6 [facility] Comment on above: Performed By: #### L 501.5200 ####[facility] [address] [place], [address] Spine Cervical without Contr ason 04-06-2024 Spine Cervical without Contras Normal [facility] Thoracic Spine 2 Viewson Thoracic Spine 2 Views Normal [facility] Urinalysis, Completeon 04-06 EPI,SQUAMOUS 5-10 SEEN Normal 0-5 [facility] Comment on above: Order Comment: CLEAN CATCH Performed By: #### L 400.0001 ####[facility] [address] [place], [address] BACTERIA 0 SEEN Normal None Seen [facility] Comment on above: Order Comment: CLEAN CATCH Performed By: #### L 400.0001 ####[facility] [address] [place], [address] Mucus Ql (Urine sed) 0 SEEN Normal [facility] Comment on above: Order Comment: CLEAN CATCH Performed By: #### L 400.0001 ####[facility] [address] [place], [address] RBC 0 SEEN Normal 0-5 [facility] Comment on above: Order Comment: CLEAN CATCH Performed By: #### L 400.0001 ####[facility] [address] [place], [address] WBC 0 SEEN Normal 0-5 [facility] Comment on above: Order Comment: CLEAN CATCH Performed By: #### L 400.0001 ####[facility] [address] [place], [address] UA DIP, URINE (POC)on 2023 BILIRUBIN UA (POCT) Negative Negative [facility] CLARITY UA (POCT) Cloudy [facility] COLOR UA (POCT) Yellow [facility] GLUCOSE UA (POCT) Negative Negative mg/dL [facility] Hemoglobin Ql (U) Negative Negative [facility] Interpretation and review of laboratory results Abnormal [facility] KETONE UA (POCT) Trace Negative mg/dL [facility] LEUKOCYTES UA (POCT) Trace Abnormal Negative [facility] NITRITE UA (POCT) Positive Abnormal Negative [facility] PH UA (POCT) 6.0 4.5 - 8.0 [facility] Protein Ql (U) 100 mg/dL Abnormal Negative [facility] SPECIFIC GRAVITY UA (POCT) 1.025 1.005 - 1.030 [facility] UROBILINOGEN UA (POCT) 0.2 Malaika l E.U./dL [facility] Location:[facility], [address] [place] [address], [place], [address] [facility] Alcohol, Blood (Medical)-Ser umon 02-20-2024 SERUM ETOH < 3.0 Normal [facility] Comment on above: Result Comment: The serum:whole blood ethanol ratio is approximately 1.14and varies slightly with hematocrit.Medical Alcohol reference interval and critical value innon-tolerant individuals; 50 - 100 Impairment 100 Intoxication 100 - 250 Severe Poisoning 250 - 400 Deep/possible fatal coma Performed By: #### L 500.2500, L501.2450, L100.0500, L501.9100, L501.5425 ####[facility] [address] [place], [address] Basic Metabolic Profile (BMP )on 02-20-2024 BUN/CRE 13.3 RATIO Normal 10-20 [facility] Comment on above: Order Comment: 1Y Performed By: #### L 500.2500, L501.2450, L100.0500, L501.9100, L501.5425 ####[facility] [address] [place], [address] CA,Total 10.7 mg/dL High 8.5-10.1 [facility] Comment on above: Order Comment: 1Y Performed By: #### L 500.2500, L501.2450, L100.0500, L501.9100, L501.5425 ####[facility] [address] [place], [address] Chloride [Moles/Vol] 98 mmol/L Normal 98-107 [facility] Comment on above: Order Comment: 1Y Performed By: #### L 500.2500, L501.2450, L100.0500, L501.9100, L501.5425 ####[facility] [address] [place], [address] CO2 [Moles/Vol] 30.0 mmol/L Normal 21.0-32.0 [facility] Comment on above: Order Comment: 1Y Performed By: #### L 500.2500, L501.2450, L100.0500, L501.9100, L501.5425 ####[facility] [address] [place], [address] Creatinine [Mass/Vol] 1.35 mg/dL High 0.70-1.30 [facility] Comment on above: Order Comment: 1Y Result Comment: The validity of the calculated GFR GFRAA in patients over70 years has not been determined. Clinical correlation isessential. Performed By: #### L 500.2500, L501.2450, L100.0500, L501.9100, L501.5425 ####[facility] [address] [place], [address] EST GFR - AA 66 mL/min Normal >60 [facility] Comment on above: Order Comment: 1Y Result Comment: Afri can [place] GFR Calc Performed By: #### L 500.2500, L501.2450, L100.0500, L501.9100, L501.5425 ####[facility] [address] [place], [address] GAP 9 Normal 5-15 [facility] Comment on above: Order Comment: 1Y Performed By: #### L 500.2500, L501.2450, L100.0500, L501.9100, L501.5425 ####[facility] [address] [place], [address] GFR/1.73 sq M.predicted among non-blacks MDRD (S/P/Bld) [Vol rate/Area] 55 mL/min/{1.73_m2} Low >60 [facility] Comment on above: Order Comment: 1Y Result Comment: Non- GFR Calc Performed By: #### L 500.2500, L501.2450, L100.0500, L501.9100, L501.5425 ####[facility] [address] [place], [address] Glucose [Mass/Vol] 84 mg/dL Normal 74-106 [facility] Comment on above: Order Comment: 1Y Performed By: #### L 500.2500, L501.2450, L100.0500, L501.9100, L501.5425 ####[facility] [address] [place], [address] Potassium [Moles/Vol] 4.3 mmol/L Normal 3.5-5.1 [facility] Comment on above: Order Comment: 1Y Performed By: #### L 500.2500, L501.2450, L100.0500, L501.9100, L501.5425 ####[facility] [address] [place], [address] Sodium [Moles/Vol] 137 mmol/L Normal 136-145 [facility] Comment on above: Order Comment: 1Y Performed By: #### L 500.2500, L501.2450, L100.0500, L501.9100, L501.5425 ####[facility] [address] [place], [address] Urea nitrogen [Mass/Vol] 18 mg/dL Normal 7-18 [facility] Comment on above: Order Comment: 1Y Performed By: #### L 500.2500, L501.2450, L100.0500, L501.9100, L501.5425 ####[facility] [address] [place], [address] Bedside Glucoseon 02-20-2024 FINGERSTICK GLU 83 mg/dL Normal 74-106 [facility] Comment on above: Result Comment: RONA LO OF PATIENT CARE PER NURSING PROTOCOL Performed By: #### L 501.080 ####[facility] [id number] [place], [address] Brain/Head without Contrasto n 02-20-2024 Brain/Head without Contrast Normal [facility] CBC-Complete Blood Cnt No Di ffon 02-20-2024 Erythrocyte distribution width (RBC) [Ratio] 13.2 % Normal 11.6-14.6 [facility] Comment on above: Performed By: #### L 500.2500, L501.2450, L100.0500, L501.9100, L501.5425 ####[facility] [address] [place], [address] Hematocrit (Bld) [Volume fraction] 51.8 % Normal 40-54 [facility] Comment on above: Performed By: #### L 500.2500, L501.2450, L100.0500, L501.9100, L501.5425 ####[facility] [address] [place], [address] Hemoglobin (Bld) [Mass/Vol] 17.1 g/dL High 13.0-16.5 [facility] Comment on above: Performed By: #### L 500.2500, L501.2450, L100.0500, L501.9100, L501.5425 ####[facility] [address] [place], [address] MCH (RBC) [Entitic mass] 32.0 pg Normal 27.0-32.0 [facility] Comment on above: Performed By: #### L 500.2500, L501.2450, L100.0500, L501.9100, L501.5425 ####[facility] [address] [place], [address] MCHC (RBC) [Mass/Vol] 33.0 g/dL Normal 32-36 [facility] Comment on above: Performed By: #### L 500.2500, L501.2450, L100.0500, L501.9100, L501.5425 ####[facility] [address] [place], [address] MCV (RBC) [Entitic vol] 96.8 fL High 80-94 [facility] Comment on above: Performed By: #### L 500.2500, L501.2450, L100.0500, L501.9100, L501.5425 ####[facility] [address] [place], [address] Platelet mean volume (Bld) [Entitic vol] 9.8 fL Normal 6.2-12.0 [facility] Comment on above: Performed By: #### L 500.2500, L501.2450, L100.0500, L501.9100, L501.5425 ####[facility] [address] [place], [address] Platelets (Bld) [#/Vol] 307 10*3/uL Normal 150-450 [facility] Comment on above: Performed By: #### L 500.2500, L501.2450, L100.0500, L501.9100, L501.5425 ####[facility] [address] [place], [address] RBC (Bld) [#/Vol] 5.35 10*6/uL Normal 4.6-6.2 [facility] Comment on above: Performed By: #### L 500.2500, L501.2450, L100.0500, L501.9100, L501.5425 ####[facility] [address] [place], [address] RDW SD 47.1 fl High 35.1-43.9 [facility] Comment on above: Performed By: #### L 500.2500, L501.2450, L100.0500, L501.9100, L501.5425 ####[facility] [address] [place], [address] WBC (Bld) [#/Vol] 6.6 10*3/uL Normal 4.4-11.0 [facility] Comment on above: Performed By: #### L 500.2500, L501.2450, L100.0500, L501.9100, L501.5425 ####[facility] [address] [place], [address] Chest 1 View (Portable)on Chest 1 View (Portable) Normal [facility] Emergency Department Summary on 02-20-2024 Emergency Department Summary Normal [facility] Femur Min 2 Viewson 02-20-20 24 Femur Min 2 Views Normal [facility] Knee 1 or 2 Viewson 02-20-20 24 Knee 1 or 2 Views Normal [facility] L501.4020on 02-20-2024 TROPONIN-I HS 18 pg/mL Normal 3.0-78.0 [facility] Comment on above: Result Comment: Brant gregorio Note: New Test Units and Gender Specific Reference Ranges. For more information see Policy Stat Procedure [place] High Sensitivity Troponin (TNIH) and attachments. Performed By: #### L 501.4020 ####[facility] [address] [place], [address] L501.5425on 02-20-2024 TROPONIN-I HS 14 pg/mL Normal 3.0-78.0 [facility] Comment on above: Order Comment: 1Y Result Comment: Brant gregorio Note: New Test Units and Gender Specific Reference Ranges. For more information see Policy Stat Procedure [place] High Sensitivity Troponin (TNIH) and attachments. Performed By: #### L 500.2500, L501.2450, L100.0500, L501.9100, L501.5425 ####[facility] [address] [place], [address] Lipaseon 02-20-2024 Lipase [Catalytic activity/Vol] 23 U/L Normal 13-75 [facility] Comment on above: Order Comment: 1Y Result Comment: Brant gregorio note:LIPASE revised reference range effective 22.New Lipase methodology. Expected to produce lower valuesthan the previous assay method.NEW Reference Range: 13 - 75 U/L Performed By: #### L 500.2500, L501.2450, L100.0500, L501.9100, L501.5425 ####[facility] [address] [place], [address] Spine Cervical without Contr ason 02-20-2024 Spine Cervical without Contras Normal [facility] Spine Thoracic without Contr ason 02-20-2024 Spine Thoracic without Contras Normal [facility] Urinalysis, Completeon 02-19 EPI,RENAL 0-5 SEEN Normal 0-5 [facility] Comment on above: Order Comment: COLLE CTOR TO SPECIFY Performed By: #### L 400.0001 ####[facility] [address] [place], [address] EPI,SQUAMOUS 0-5 SEEN Normal 0-5 [facility] Comment on above: Order Comment: COLLE CTOR TO SPECIFY Performed By: #### L 400.0001 ####[facility] [address] [place], [address] BACTERIA 3+ /hpf Normal None Seen [facility] Comment on above: Order Comment: COLLE CTOR TO SPECIFY Performed By: #### L 400.0001 ####[facility] [address] [place], [address] WBC 0-5 SEEN Normal 0-5 [facility] Comment on above: Order Comment: MEHREEN CTOR TO SPECIFY Performed By: #### L 400.0001 ####[facility] [address] [place], [address] Mucus Ql (Urine sed) 0 SEEN Normal [facility] Comment on above: Order Comment: MEHREEN CTOR TO SPECIFY Performed By: #### L 400.0001 ####[facility] [address] [place], [address] RBC 0 SEEN Normal 0-5 [facility] Comment on above: Order Comment: MEHREEN CTOR TO SPECIFY Performed By: #### L 400.0001 ####[facility] [address] [place], [address] Urine Drug Screen (VISTA)on 02-20-2024 AMPHETAMINES Negative Normal <1000 ng/mL [facility] Comment on above: Performed By: #### L 505.5000 ####[facility] [address] [facility] [address] BARBITIURATES Negative Normal < 200 ng/mL [facility] Comment on above: Performed By: #### L 505.5000 ####[facility] [address] [facility] [address] BENZODIAZIPINE Negative Normal < 200 ng/mL [facility] Comment on above: Performed By: #### L 505.5000 ####[facility] [address] [place], [address] COCAINE Negative Normal < 300 ng/mL [facility] Comment on above: Performed By: #### L 505.5000 ####[facility] [address] [place], [address] ECSTACY Negative Normal < 500 ng/mL [facility] Comment on above: Performed By: #### L 505.5000 ####[facility] [address] [place], [address] METHADONE Negative Normal < 300 ng/mL [facility] Comment on above: Performed By: #### L 505.5000 ####[facility] [address] [place], [address] OPIATES Negative Normal < 300 ng/mL [facility] Comment on above: Performed By: #### L 505.5000 ####[facility] [address] [place], [address] PCP Negative Normal < 25 ng/mL [facility] Comment on above: Performed By: #### L 505.5000 ####[facility] [address] [place], [address] THC Negative Normal < 50 ng/mL [facility] Comment on above: Performed By: #### L 505.5000 ####[facility] [address] [place] [id number] VISTA UDS PH 4 Normal [facility] Comment on above: Performed By: #### L 505.5000 ####[facility] [address] [place], [address] Emergency Department Summary on 01-03-2024 Emergency Department Summary Normal [facility] Tibia Fibula 2 Viewson 01-02 Tibia Fibula 2 Views Normal [facility] Absolute lymphocyte countOrd ered By: Brody Maynard on 07-31-2023 Lymphocytes Auto (Unsp spec) [#/Vol] 0.39 10*3/uL 0.83-4.51 [facility] Automated lymphocyte count a s percentage of total leukocytesOrdered By: Brody Maynard on 07-31-2023 Lymphocytes/100 WBC Auto (Unsp spec) 7.1 % 19-41 [facility] Basophil percentageOrdered B y: Brody Maynard on 07-31-2023 Basophil percentage 12.6 g/dL 13.0-16.5 [facility] Basophil percentage 113 mg/dL 74-106 [facility] Basophil percentage 139 mmol/L 136-145 [facility] Basophil percentage 4.0 mmol/L 3.5-5.1 [facility] Basophil percentage 102 mmol/L 98-107 [facility] Basophils (Bld) [#/Vol] 5.5 10*3/uL 4.4-11.0 [facility] Basophils (Bld) [#/Vol] 4.7 10*3/uL 2.0-7.7 [facility] Basophils/100 WBC (Bld) 85.0 % 47-70 [facility] Basophils/100 WBC (Bld) 7.1 % 0-10 [facility] Basophils/100 WBC (Bld) 0.0 % 0-5 [facility] Basophils/100 WBC (Bld) 0.4 % 0-1 [facility] Determination of erythrocyte mean corpuscular volume (MCV)Ordered By: Brody Maynard on 07-31-2023 MCV (RBC) [Entitic vol] 98.4 fL 80-94 [facility] Erythrocyte distribution wid th ratioOrdered By: Brody Maynard on 07-31-2023 Erythrocyte distribution width (RBC) [Ratio] 13.2 % 11.6-14.6 [facility] Erythrocyte distribution wid th standard deviationOrdered By: Brody Maynard on 07-31-2023 Erythrocyte distribution width (RBC) [Entitic vol] 47.2 fL 35.1-43.9 [facility] Hematocrit Auto (Bld) [Volum e fraction]Ordered By: Brody Maynard on 07-31-2023 Hematocrit (Bld) [Volume fraction] 37.9 % 40-54 [facility] Immature granulocytes/100 WB C Auto (Bld)Ordered By: Brody Maynard on 07-31-2023 Immature granulocytes/100 WBC (Bld) 0.400 % 0.0-0.9 [facility] No Panel InformationOrdered By: Brody Maynard on 07-31-2023 32.7 pg 27.0-32.0 [facility] 33.2 g/dL 32-36 [facility] 284 K/mm3 150-450 [facility] 10.1 fl 6.2-12.0 [facility] 0 % 0-5 [facility] 77 mL/min >60 [facility] 93 mL/min >60 [facility] 60.90 ml/min [facility] 22.8 RATIO 10-20 [facility] 29.0 mmol/L 21.0-32.0 [facility] RBC Auto (Bld) [#/Vol]Ordere d By: Brody Maynard on 07-31-2023 RBC (Bld) [#/Vol] 3.85 10*6/uL 4.6-6.2 [facility] Serum or plasma calcium luis urement (mass/volume)Ordered By: Brody Maynard on 07-31-2023 Calcium [Mass/Vol] 8.6 mg/dL 8.5-10.1 [facility] Serum or plasma creatinine m easurement (mass/volume)Ordered By: Brody Maynard on 07-31-2023 Creatinine [Mass/Vol] 1.01 mg/dL 0.70-1.30 [facility] Serum or plasma urea nitroge n measurement (mass/volume)Ordered By: Brody Maynard on 07-31-2023 Urea nitrogen [Mass/Vol] 23 mg/dL 7-18 [facility] Thin prep Papanicolaou smear with manual screeningOrdered By: Brody Maynard on 07-31-2023 Thin prep Papanicolaou smear with manual screening 8 5-15 [facility] Absolute lymphocyte countOrd ered By: Андрей Ng on 07-30-2023 Lymphocytes Auto (Unsp spec) [#/Vol] 0.60 10*3/uL 0.83-4.51 [facility] Automated lymphocyte count a s percentage of total leukocytesOrdered By: Андрей Ng on 07-30-2023 Lymphocytes/100 WBC Auto (Unsp spec) 10.9 % 19-41 [facility] Base excessOrdered By: ED WI OVIDER on 07-30-2023 Base excess Calc (BldV) [Moles/Vol] 2 mmol/L -1.0-3.5 [facility] Basophil percentageOrdered B y: Андрей Ng on 07-30-2023 Basophil percentage 0 SEEN /hpf 0-5 [facility] Basophil percentage 13.3 g/dL 13.0-16.5 [facility] Basophil percentage 114 mg/dL 74-106 [facility] Basophil percentage 138 mmol/L 136-145 [facility] Basophil percentage 4.2 mmol/L 3.5-5.1 [facility] Basophil percentage 102 mmol/L 98-107 [facility] Basophils (Bld) [#/Vol] 5.5 10*3/uL 4.4-11.0 [facility] Basophils (Bld) [#/Vol] 4.2 10*3/uL 2.0-7.7 [facility] Basophils/100 WBC (Bld) 76.5 % 47-70 [facility] Basophils/100 WBC (Bld) 10.7 % 0-10 [facility] Basophils/100 WBC (Bld) 0.5 % 0-5 [facility] Basophils/100 WBC (Bld) 0.9 % 0-1 [facility] Bilirubin Test strip Ql (U)O rdered By: Андрей Ng on 07-30-2023 Bilirubin Ql (U) Negative Negative [facility] CO2 (BldV) [Moles/Vol]Ordere d By: ED PROVIDER on 07-30-2023 CO2 [Moles/Vol] 29 mmol/L 23-33 [facility] Determination of erythrocyte mean corpuscular volume (MCV)Ordered By: Андрей Ng on 07-30-2023 MCV (RBC) [Entitic vol] 99.3 fL 80-94 [facility] Erythrocyte distribution wid th ratioOrdered By: Андрей Ng on 07-30-2023 Erythrocyte distribution width (RBC) [Ratio] 13.2 % 11.6-14.6 [facility] Erythrocyte distribution wid th standard deviationOrdered By: Андрей Ng on 07-30-2023 Erythrocyte distribution width (RBC) [Entitic vol] 48.3 fL 35.1-43.9 [facility] Hematocrit Auto (Bld) [Volum e fraction]Ordered By: Андрей Ng on 07-30-2023 Hematocrit (Bld) [Volume fraction] 40.4 % 40-54 [facility] Immature granulocytes/100 WB C Auto (Bld)Ordered By: Андрей Ng on 07-30-2023 Immature granulocytes/100 WBC (Bld) 0.500 % 0.0-0.9 [facility] Ketones Test strip Ql (U)Ord ered By: Андрей Ng on 07-30-2023 Ketones Ql (U) Negative Negative [facility] Mucus LM Ql (Urine sed)Order ed By: Андрей Ng on 07-30-2023 Mucus Ql (Urine sed) 0 SEEN /hpf [facility] Nitrite Test strip Ql (U)Ord ered By: Андрей Ng on 07-30-2023 Nitrite Ql (U) Negative Negative [facility] No Panel InformationOrdered By: Андрей Ng on 07-30-2023 0 SEEN /hpf 0-5 [facility] Influenzae A [facility] 32.7 pg 27.0-32.0 [facility] 32.9 g/dL 32-36 [facility] 262 K/mm3 150-450 [facility] 9.4 fl 6.2-12.0 [facility] 0 % 0-5 [facility] 67 mL/min >60 [facility] 81 mL/min >60 [facility] 55.00 ml/min [facility] 22.8 RATIO 10-20 [facility] 15 pg/mL 3.0-78.0 [facility] 29.0 mmol/L 21.0-32.0 [facility] 218.8 pg/mL 0-100 [facility] No Panel InformationOrdered By: ED PROVIDER on 07-30-2023 LASHAE [facility] Not entered [facility] Cannula [facility] 3.0 [facility] 28 mmol/L 22-26 [facility] 69 % 50-70 [facility] PCO2 venousOrdered By: ED WI OVIDER on 07-30-2023 CO2 (BldV) [Partial pressure] 48.6 mm[Hg] 41-51 [facility] PO2 venousOrdered By: ED PRO VIDER on 07-30-2023 Oxygen (BldV) [Partial pressure] 38 mm[Hg] 25-40 [facility] Protein Test strip Ql (U)Ord ered By: Андрей Ng on 07-30-2023 Protein Ql (U) 30 mg/dl Negative [facility] RBC Auto (Bld) [#/Vol]Ordere d By: Андрей Ng on 07-30-2023 RBC (Bld) [#/Vol] 4.07 10*6/uL 4.6-6.2 [facility] Serum or plasma calcium luis urement (mass/volume)Ordered By: Андрей Ng on 07-30-2023 Calcium [Mass/Vol] 9.2 mg/dL 8.5-10.1 [facility] Serum or plasma creatinine m easurement (mass/volume)Ordered By: Андрей Ng on 07-30-2023 Creatinine [Mass/Vol] 1.14 mg/dL 0.70-1.30 [facility] Serum or plasma urea nitroge n measurement (mass/volume)Ordered By: Андрей Ng on 07-30-2023 Urea nitrogen [Mass/Vol] 26 mg/dL 7-18 [facility] Squamous epithelial cells de tection in urine sediment by light microscopyOrdered By: Андрей Ng on 07-30-2023 Epithelial cells.squamous LM Ql (Urine sed) 0 SEEN /hpf 0-5 [facility] Thin prep Papanicolaou smear with manual screeningOrdered By: Андрей Ng on 07-30-2023 Thin prep Papanicolaou smear with manual screening 7 5-15 [facility] Urine blood detectionOrdered By: Андрей Ng on 07-30-2023 RBC Ql (U) 10 /ul Negative [facility] Urine clarityOrdered By: Italia Ng on 07-30-2023 Clarity (U) Clear Clear [facility] Urine color determinationOrd ered By: Андрей Ng on 07-30-2023 Color (U) Yellow Yellow [facility] Urine glucose detectionOrder ed By: Андрей Ng on 07-30-2023 Glucose Ql (U) Normal mg/dl Normal [facility] Urine leukocyte esterase det ection by dipstickOrdered By: Андрей Ng on 07-30-2023 Leukocyte esterase Test strip Ql (U) Negative Negative [facility] Urine pHOrdered By: Андрей garland on 07-30-2023 pH (U) 7.0 [pH] 5.0 - 8.0 [facility] Urine sediment bacteria coun t by microscopy (number/high power field)Ordered By: Андрей Ng on 07-30-2023 Bacteria LM.HPF (Urine sed) [#/Area] 0 /[HPF] None Seen [facility] Urine specific gravity measu rementOrdered By: Андрей Ng on 07-30-2023 Specific gravity (U) [Rel density] 1.010 1.002-1.030 [facility] Urine urobilinogen measureme ntOrdered By: Андрей Ng on 07-30-2023 Urobilinogen Ql (U) Normal mg/dl Normal [facility] Venous blood pH measurementO rdered By: ED PROVIDER on 07-30-2023 pH (BldV) 7.36 [pH] 7.32-7.42 [facility] Basophil percentageOrdered B y: Андрей Cooley on 07-27-2023 Basophil percentage 12.8 g/dL 13.0-16.5 [facility] Basophil percentage 103 mg/dL 74-106 [facility] Basophil percentage 141 mmol/L 136-145 [facility] Basophil percentage 3.7 mmol/L 3.5-5.1 [facility] Basophil percentage 110 mmol/L 98-107 [facility] Basophils (Bld) [#/Vol] 6.8 10*3/uL 4.4-11.0 [facility] Determination of erythrocyte mean corpuscular volume (MCV)Ordered By: Андрей Cooley on 07-27-2023 MCV (RBC) [Entitic vol] 98.5 fL 80-94 [facility] Erythrocyte distribution wid th ratioOrdered By: Андрей Cooley on 07-27-2023 Erythrocyte distribution width (RBC) [Ratio] 13.1 % 11.6-14.6 [facility] Erythrocyte distribution wid th standard deviationOrdered By: Андрей Cooley on 07-27-2023 Erythrocyte distribution width (RBC) [Entitic vol] 46.7 fL 35.1-43.9 [facility] Hematocrit Auto (Bld) [Volum e fraction]Ordered By: Андрей Cooley on 07-27-2023 Hematocrit (Bld) [Volume fraction] 38.9 % 40-54 [facility] No Panel InformationOrdered By: Андрей Cooley on 07-27-2023 32.4 pg 27.0-32.0 [facility] 32.9 g/dL 32-36 [facility] 246 K/mm3 150-450 [facility] 10.1 fl 6.2-12.0 [facility] 56 mL/min >60 [facility] 68 mL/min >60 [facility] 26.5 RATIO 10-20 [facility] 29.0 mmol/L 21.0-32.0 [facility] RBC Auto (Bld) [#/Vol]Ordere d By: Андрей Cooley on 07-27-2023 RBC (Bld) [#/Vol] 3.95 10*6/uL 4.6-6.2 [facility] Serum or plasma calcium luis urement (mass/volume)Ordered By: Андрей Cooley on 07-27-2023 Calcium [Mass/Vol] 9.5 mg/dL 8.5-10.1 [facility] Serum or plasma creatinine m easurement (mass/volume)Ordered By: Андрей Cooley on 07-27-2023 Creatinine [Mass/Vol] 1.32 mg/dL 0.70-1.30 [facility] Serum or plasma urea nitroge n measurement (mass/volume)Ordered By: Андрей Cooley on 07-27-2023 Urea nitrogen [Mass/Vol] 35 mg/dL 7-18 [facility] Thin prep Papanicolaou smear with manual screeningOrdered By: Андрей Cooley on 07-27-2023 Thin prep Papanicolaou smear with manual screening 2 5-15 [facility] Absolute lymphocyte countOrd ered By: Андрей Cooley on 07-25-2023 Lymphocytes Auto (Unsp spec) [#/Vol] 1.22 10*3/uL 0.83-4.51 [facility] Automated lymphocyte count a s percentage of total leukocytesOrdered By: Андрей Cooley on 07-25-2023 Lymphocytes/100 WBC Auto (Unsp spec) 17.6 % 19-41 [facility] Basophil percentageOrdered B y: Андрей Cooley on 07-25-2023 Basophil percentage 14.3 g/dL 13.0-16.5 [facility] Basophil percentage 126 mg/dL 74-106 [facility] Basophil percentage 138 mmol/L 136-145 [facility] Basophil percentage 3.5 mmol/L 3.5-5.1 [facility] Basophil percentage 105 mmol/L 98-107 [facility] Basophils (Bld) [#/Vol] 6.9 10*3/uL 4.4-11.0 [facility] Basophils (Bld) [#/Vol] 4.9 10*3/uL 2.0-7.7 [facility] Basophils/100 WBC (Bld) 70.5 % 47-70 [facility] Basophils/100 WBC (Bld) 10.0 % 0-10 [facility] Basophils/100 WBC (Bld) 0.7 % 0-5 [facility] Basophils/100 WBC (Bld) 0.9 % 0-1 [facility] Determination of erythrocyte mean corpuscular volume (MCV)Ordered By: Андрей Cooley on 07-25-2023 MCV (RBC) [Entitic vol] 95.2 fL 80-94 [facility] Erythrocyte distribution wid th ratioOrdered By: Андрей Cooley on 07-25-2023 Erythrocyte distribution width (RBC) [Ratio] 12.7 % 11.6-14.6 [facility] Erythrocyte distribution wid th standard deviationOrdered By: Андрей Cooley on 07-25-2023 Erythrocyte distribution width (RBC) [Entitic vol] 44.9 fL 35.1-43.9 [facility] Hematocrit Auto (Bld) [Volum e fraction]Ordered By: Андрей Cooley on 07-25-2023 Hematocrit (Bld) [Volume fraction] 41.9 % 40-54 [facility] Immature granulocytes/100 WB C Auto (Bld)Ordered By: Андрей Cooley on 02-06-2024 Immature granulocytes/100 WBC (Bld) 0.300 % 0.0-0.9 [facility] No Panel InformationOrdered By: Андрей Cooley on 07-25-2023 32.5 pg 27.0-32.0 [facility] 34.1 g/dL 32-36 [facility] 245 K/mm3 150-450 [facility] 9.7 fl 6.2-12.0 [facility] 0 % 0-5 [facility] 62 mL/min >60 [facility] 75 mL/min >60 [facility] 39.28 ml/min [facility] 13.2 RATIO 10-20 [facility] 25.0 mmol/L 21.0-32.0 [facility] RBC Auto (Bld) [#/Vol]Ordere d By: Андрей Cooley on 07-25-2023 RBC (Bld) [#/Vol] 4.40 10*6/uL 4.6-6.2 [facility] Serum or plasma calcium luis urement (mass/volume)Ordered By: Андрей Cooley on 07-25-2023 Calcium [Mass/Vol] 9.3 mg/dL 8.5-10.1 [facility] Serum or plasma creatinine m easurement (mass/volume)Ordered By: Андрей Cooley on 07-25-2023 Creatinine [Mass/Vol] 1.21 mg/dL 0.70-1.30 [facility] Serum or plasma urea nitroge n measurement (mass/volume)Ordered By: Андрей Cooley on 07-25-2023 Urea nitrogen [Mass/Vol] 16 mg/dL 7-18 [facility] Thin prep Papanicolaou smear with manual screeningOrdered By: Андрей Cooley on 07-25-2023 Thin prep Papanicolaou smear with manual screening 8 5-15 [facility] Absolute lymphocyte countOrd ered By: Raul Melchor on 07-24-2023 Lymphocytes Auto (Unsp spec) [#/Vol] 1.14 10*3/uL 0.83-4.51 [facility] Automated lymphocyte count a s percentage of total leukocytesOrdered By: Raul Melchor on 07-24-2023 Lymphocytes/100 WBC Auto (Unsp spec) 16.0 % 19-41 [facility] Basophil percentageOrdered B y: Raul Melchor on 07-24-2023 Basophils/100 WBC (Bld) 1.0 % 0-1 [facility] Chloride [Moles/Vol] 103 mmol/L 98-107 [facility] Eosinophils/100 WBC (Bld) 1.1 % 0-5 [facility] Glucose [Mass/Vol] 134 mg/dL 74-106 [facility] Comment on above: Fasting Glucose resu lt greater than or equal to 126 mg/dL suggests DIABETES MELLITUS per A.D.A. criteria. Hemoglobin (Bld) [Mass/Vol] 16.2 g/dL 13.0-16.5 [facility] Monocytes/100 WBC (Bld) 7.3 % 0-10 [facility] Neutrophils (Bld) [#/Vol] 5.3 10*3/uL 2.0-7.7 [facility] Neutrophils/100 WBC (Bld) 74.0 % 47-70 [facility] Potassium [Moles/Vol] 3.8 mmol/L 3.5-5.1 [facility] Comment on above: Moderate Hemolysis, Result may be falsely increased. Sodium [Moles/Vol] 139 mmol/L 136-145 [facility] WBC (Bld) [#/Vol] 7.1 10*3/uL 4.4-11.0 [facility] Determination of erythrocyte mean corpuscular volume (MCV)Ordered By: Raul Melchor on 07-24-2023 MCV (RBC) [Entitic vol] 94.8 fL 80-94 [facility] Erythrocyte distribution wid th ratioOrdered By: Raul Melchor on 07-24-2023 Erythrocyte distribution width (RBC) [Ratio] 12.8 % 11.6-14.6 [facility] Erythrocyte distribution wid th standard deviationOrdered By: Raul Melchor on 07-24-2023 Erythrocyte distribution width (RBC) [Entitic vol] 44.3 fL 35.1-43.9 [facility] Hematocrit Auto (Bld) [Volum e fraction]Ordered By: Raul Melchor on 07-24-2023 Hematocrit (Bld) [Volume fraction] 47.4 % 40-54 [facility] Immature granulocytes/100 WB C Auto (Bld)Ordered By: Raul Melchor on 07-24-2023 Immature granulocytes/100 WBC (Bld) 0.600 % 0.0-0.9 [facility] Comment on above: IG% - Immature Granu locytes (promyelocytes, myelocytes and metamyelocytes) > 1% indicates that a LEFT SHIFT is Present. Laboratory - Chemistry and C hemistry - challengeOrdered By: Raul Melchor on 07-24-2023 CO2 [Moles/Vol] 28.0 mmol/L 21.0-32.0 [facility] Urea nitrogen/Creatinine [Mass ratio] 14.1 mg/mg 10-20 [facility] Laboratory - Hematology and Cell countsOrdered By: Raul Melchor on 07-24-2023 MCH (RBC) [Entitic mass] 32.4 pg 27.0-32.0 [facility] MCHC (RBC) [Mass/Vol] 34.2 g/dL 32-36 [facility] Nucleated RBC/100 WBC (Bld) [Ratio] 0 % 0-5 [facility] Platelets (Bld) [#/Vol] 285 10*3/uL 150-450 [facility] No Panel InformationOrdered By: Raul Melchor on 07-24-2023 Estimated Creatinine Clearance Calc 48.70 ml/min [facility] Estimated GFR (MDRD) Amer 71 mL/min >60 [facility] Comment on above: GFR Calc Estimated GFR (MDRD) Non-Af Amer 58 mL/min >60 [facility] Comment on above: Non- GFR Calc Platelet mean volume Ye-Ec ker (Bld) [Entitic vol]Ordered By: Raul Melchor on 07-24-2023 Platelet mean volume (Bld) [Entitic vol] 9.8 fL 6.2-12.0 [facility] RBC Auto (Bld) [#/Vol]Ordere d By: Raul Melchor on 07-24-2023 RBC (Bld) [#/Vol] 5.00 10*6/uL 4.6-6.2 [facility] Serum or plasma calcium luis urement (mass/volume)Ordered By: Raul Melchor on 07-24-2023 Calcium [Mass/Vol] 9.8 mg/dL 8.5-10.1 [facility] Serum or plasma creatinine m easurement (mass/volume)Ordered By: Raul Melchor on 07-24-2023 Creatinine [Mass/Vol] 1.28 mg/dL 0.70-1.30 [facility] Comment on above: The validity of the calculated GFR & GFRAA in patients over 70 years has not been determined. Clinical correlation is essential. Serum or plasma urea nitroge n measurement (mass/volume)Ordered By: Raul Melchor on 07-24-2023 Urea nitrogen [Mass/Vol] 18 mg/dL 01-03 [facility] Thin prep Papanicolaou smear with manual screeningOrdered By: Raul Melchor on 07-24-2023 Thin prep Papanicolaou smear with manual screening 10-31 [facility] UAon 07-10-2023 Color (U) Yellow Normal [facility] ([place]) Comment on above: Performed By: #### U A #### [address] [address] Glucose (U) [Mass/Vol] Negative Normal Negative [facility] ([place]) Comment on above: Performed By: #### U A #### [address] [address] Ketones Ql (U) Negative Normal Neg-Trace [facility] ([place]) Comment on above: Performed By: #### U A #### [address] [address] UA Appear Clear Normal Clear [facility] ([place]) Comment on above: Performed By: #### U A #### [address] [address] UA Blood Negative Normal Neg-Trace [facility] ([place]) Comment on above: Performed By: #### U A #### [address] [address] UA Leuk Est Negative Normal Negative [facility] ([place]) Comment on above: Performed By: #### U A #### [address] [address] UA Nitrite Negative Normal Negative [facility] ([place]) Comment on above: Performed By: #### U A #### [address] [address] UA pH 5.5 Normal 5.0 - 8.0 [facility] ([place]) Comment on above: Performed By: #### U A #### [address] [address] UA Protein 30 mg/dL Normal Negative [facility] ([place]) Comment on above: Performed By: #### U A #### [address] [address] UA Spec Grav 1.020 Normal 1.006-1.029 [facility] ([place]) Comment on above: Performed By: #### U A #### [place] [id number] UA Specimen Type Void Normal [facility] ([place]) Comment on above: Performed By: #### U A #### [address] [address] UA Urobilinogen 0.2 E.U./dL Normal 0.2-1.0 [facility] ([place]) Comment on above: Performed By: #### U A #### [address] [address] Urobilinogen (U) [Mass/Vol] Negative Normal Neg-Trace [facility] ([place]) Comment on above: Performed By: #### U A #### [address] [address] Absolute lymphocyte countOrd ered By: Daija Morton on 06-14-2023 Lymphocytes Auto (Unsp spec) [#/Vol] 1.09 10*3/uL 0.83-4.51 [facility] Basophil percentageOrdered B y: Daija Morton on 06-14-2023 Basophil percentage 108 mg/dL 74-106 [facility] Basophil percentage 139 mmol/L 136-145 [facility] Basophil percentage 4.2 mmol/L 3.5-5.1 [facility] Basophil percentage 104 mmol/L 98-107 [facility] Basophils (Bld) [#/Vol] 6.5 10*3/uL 4.4-11.0 [facility] Basophils (Bld) [#/Vol] 4.7 10*3/uL 2.0-7.7 [facility] Basophils/100 WBC (Bld) 1.4 % 0-1 [facility] Basophils/100 WBC (Bld) 72.2 % 47-70 [facility] Basophils/100 WBC (Bld) 2.0 % 0-5 [facility] Chloride [Moles/Vol] 104 mmol/L 98-107 [facility] Eosinophils/100 WBC (Bld) 2.0 % 0-5 [facility] Glucose [Mass/Vol] 108 mg/dL 74-106 [facility] Comment on above: Fasting Glucose resu lt from 100 to 125 mg/dL suggests IMPAIRED HOMEOSTASIS per A.D.A. criteria. Neutrophils (Bld) [#/Vol] 4.7 10*3/uL 2.0-7.7 [facility] Neutrophils/100 WBC (Bld) 72.2 % 47-70 [facility] Potassium [Moles/Vol] 4.2 mmol/L 3.5-5.1 [facility] Sodium [Moles/Vol] 139 mmol/L 136-145 [facility] WBC (Bld) [#/Vol] 6.5 10*3/uL 4.4-11.0 [facility] Blood erythrocytes count (nu mber/volume)Ordered By: Daija Morton on 06-14-2023 RBC (Bld) [#/Vol] 4.73 10*6/uL 4.6-6.2 [facility] Blood hemoglobin measurement (mass/volume)Ordered By: Daija Morton on 06-14-2023 Hemoglobin (Bld) [Mass/Vol] 15.8 g/dL 13.0-16.5 [facility] Blood lymphocytes/100 leukoc ytesOrdered By: Daija Morton on 06-14-2023 Lymphocytes/100 WBC (Bld) 16.8 % 19-41 [facility] Blood monocytes/100 leukocyt esOrdered By: Daija Morton on 06-14-2023 Monocytes/100 WBC (Bld) 7.1 % 0-10 [facility] Blood platelet mean volumeOr dered By: Daija Morton on 06-14-2023 Platelet mean volume (Bld) [Entitic vol] 9.9 fL 6.2-12.0 [facility] Determination of erythrocyte mean corpuscular volume (MCV)Ordered By: Daija Morton on 06-14-2023 MCV (RBC) [Entitic vol] 96.6 fL 80-94 [facility] Hematocrit Auto (Bld) [Volum e fraction]Ordered By: Daija Morton on 06-14-2023 Hematocrit (Bld) [Volume fraction] 45.7 % 40-54 [facility] Laboratory - Chemistry and C hemistry - challengeOrdered By: Daijara Morton on 06-14-2023 CO2 [Moles/Vol] 30.0 mmol/L 21.0-32.0 [facility] Urea nitrogen/Creatinine [Mass ratio] 16.1 mg/mg 10-20 [facility] Laboratory - Hematology and Cell countsOrdered By: Daija Morton on 06-14-2023 Erythrocyte distribution width (RBC) [Entitic vol] 46.5 fL 35.1-43.9 [facility] Erythrocyte distribution width (RBC) [Ratio] 13.1 % 11.6-14.6 [facility] Immature granulocytes/100 WBC (Bld) 0.500 % 0.0-0.9 [facility] Comment on above: IG% - Immature Granu locytes (promyelocytes, myelocytes and metamyelocytes) > 1% indicates that a LEFT SHIFT is Present. MCH (RBC) [Entitic mass] 33.4 pg 27.0-32.0 [facility] Nucleated RBC/100 WBC (Bld) [Ratio] 0 % 0-5 [facility] MCHC Auto (RBC) [Mass/Vol]Or dered By: Daija Morton on 06-14-2023 MCHC (RBC) [Mass/Vol] 34.6 g/dL 32-36 [facility] No Panel InformationOrdered By: Daija Morton on 06-14-2023 Estimated GFR (MDRD) Amer 73 mL/min >60 [facility] Comment on above: GFR Calc Estimated GFR (MDRD) Non-Af Amer 61 mL/min >60 [facility] Comment on above: Non- GFR Calc 33.4 pg 27.0-32.0 [facility] 13.1 % 11.6-14.6 [facility] 46.5 fl 35.1-43.9 [facility] 0.500 % 0.0-0.9 [facility] 0 % 0-5 [facility] 61 mL/min >60 [facility] 73 mL/min >60 [facility] 16.1 RATIO 10-20 [facility] 30.0 mmol/L 21.0-32.0 [facility] Platelets bldOrdered By: Nemesio Morton on 06-14-2023 Platelets (Bld) [#/Vol] 285 10*3/uL 150-450 [facility] Serum or plasma calcium luis urement (mass/volume)Ordered By: Daija Morton on 06-14-2023 Calcium [Mass/Vol] 9.8 mg/dL 8.5-10.1 [facility] Serum or plasma creatinine m easurement (mass/volume)Ordered By: Daija Morton on 06-14-2023 Creatinine [Mass/Vol] 1.24 mg/dL 0.70-1.30 [facility] Comment on above: The validity of the calculated GFR & GFRAA in patients over 70 years has not been determined. Clinical correlation is essential. Serum or plasma urea nitroge n measurement (mass/volume)Ordered By: Daija Morton on 06-14-2023 Urea nitrogen [Mass/Vol] 20 mg/dL 7-18 [facility] Thin prep Papanicolaou smear with manual screeningOrdered By: Daija Morton on 06-14-2023 Thin prep Papanicolaou smear with manual screening 5 5-15 [facility] Basophil percentageOrdered B y: Андрей Cooley on 05-19-2023 Basophil percentage 100 mg/dL 74-106 [facility] Basophil percentage 6.5 g/dL 6.4-8.2 [facility] Basophil percentage 0.30 mg/dL 0.20-1.00 [facility] Basophil percentage 141 mmol/L 136-145 [facility] Basophil percentage 3.6 mmol/L 3.5-5.1 [facility] Basophil percentage 109 mmol/L 98-107 [facility] Basophils (Bld) [#/Vol] 6.2 10*3/uL 4.4-11.0 [facility] Bilirubin [Mass/Vol] 0.30 mg/dL 0.20-1.00 [facility] Comment on above: For patients on eltr ombopag therapy, use of Dimension [place] TBIL is not recommended. Chloride [Moles/Vol] 109 mmol/L 98-107 [facility] Glucose [Mass/Vol] 100 mg/dL 74-106 [facility] Comment on above: Fasting Glucose resu lt from 100 to 125 mg/dL suggests IMPAIRED HOMEOSTASIS per A.D.A. criteria. Potassium [Moles/Vol] 3.6 mmol/L 3.5-5.1 [facility] Protein [Mass/Vol] 6.5 g/dL 6.4-8.2 [facility] Sodium [Moles/Vol] 141 mmol/L 136-145 [facility] WBC (Bld) [#/Vol] 6.2 10*3/uL 4.4-11.0 [facility] Blood erythrocytes count (nu mber/volume)Ordered By: Андрей Cooley on 05-19-2023 RBC (Bld) [#/Vol] 4.24 10*6/uL 4.6-6.2 [facility] Blood hemoglobin measurement (mass/volume)Ordered By: Андрей Cooley on 05-19-2023 Hemoglobin (Bld) [Mass/Vol] 13.8 g/dL 13.0-16.5 [facility] Blood platelet mean volumeOr dered By: Андрей Cooley on 05-19-2023 Platelet mean volume (Bld) [Entitic vol] 9.9 fL 6.2-12.0 [facility] Determination of erythrocyte mean corpuscular volume (MCV)Ordered By: Андрей Cooley on 05-19-2023 MCV (RBC) [Entitic vol] 99.5 fL 80-94 [facility] Hematocrit Auto (Bld) [Volum e fraction]Ordered By: Андрей Cooley on 05-19-2023 Hematocrit (Bld) [Volume fraction] 42.2 % 40-54 [facility] Laboratory - Chemistry and C hemistry - challengeOrdered By: Андрей Cooley on 05-19-2023 ALP [Catalytic activity/Vol] 72 U/L 45-117 [facility] ALT [Catalytic activity/Vol] 33 U/L 16-61 [facility] CO2 [Moles/Vol] 29.0 mmol/L 21.0-32.0 [facility] Globulin (S) [Mass/Vol] 3.1 g/dL 2.2-4.2 [facility] Urea nitrogen/Creatinine [Mass ratio] 18.6 mg/mg 10-20 [facility] Laboratory - Hematology and Cell countsOrdered By: Андрей Cooley on 05-19-2023 Erythrocyte distribution width (RBC) [Entitic vol] 52.4 fL 35.1-43.9 [facility] Erythrocyte distribution width (RBC) [Ratio] 14.3 % 11.6-14.6 [facility] MCH (RBC) [Entitic mass] 32.5 pg 27.0-32.0 [facility] MCHC Auto (RBC) [Mass/Vol]Or dered By: Андрей Cooley on 05-19-2023 MCHC (RBC) [Mass/Vol] 32.7 g/dL 32-36 [facility] No Panel InformationOrdered By: Андрей Cooley on 05-19-2023 Estimated GFR (MDRD) Amer 78 mL/min >60 [facility] Comment on above: GFR Calc Estimated GFR (MDRD) Non-Af Amer 64 mL/min >60 [facility] Comment on above: Non- GFR Calc 32.5 pg 27.0-32.0 [facility] 14.3 % 11.6-14.6 [facility] 52.4 fl 35.1-43.9 [facility] 64 mL/min >60 [facility] 78 mL/min >60 [facility] 18.6 RATIO 10- [facility] 3.1 g/dL 2.2-4.2 [facility] 72 U/L 45-117 [facility] 33 U/L 16-61 [facility] 29.0 mmol/L 21.0-32.0 [facility] Platelets bldOrdered By: Italia Cooley on 05-19-2023 Platelets (Bld) [#/Vol] 284 10*3/uL 150-450 [facility] Serum or plasma albumin luis urement (mass/volume)Ordered By: Андрей Cooley on 05-19-2023 Albumin [Mass/Vol] 3.4 g/dL 3.2-5.0 [facility] Serum or plasma albumin/glob ulin mass ratioOrdered By: Андрей Cooley on 05-19-2023 Albumin/Globulin [Mass ratio] 1.1 {ratio} 0.9-2.4 [facility] Serum or plasma calcium luis urement (mass/volume)Ordered By: Андрей Cooley on 05-19-2023 Calcium [Mass/Vol] 8.7 mg/dL 8.5-10.1 [facility] Serum or plasma creatinine m easurement (mass/volume)Ordered By: Андрей Cooley on 05-19-2023 Creatinine [Mass/Vol] 1.18 mg/dL 0.70-1.30 [facility] Comment on above: The validity of the calculated GFR & GFRAA in patients over 70 years has not been determined. Clinical correlation is essential. Serum or plasma urea nitroge n measurement (mass/volume)Ordered By: Андрей Cooley on 05-19-2023 Urea nitrogen [Mass/Vol] 22 mg/dL 7-18 [facility] Thin prep Papanicolaou smear with manual screeningOrdered By: Андрей Cooley on 05-19-2023 Thin prep Papanicolaou smear with manual screening 17 U/L 15-37 [facility] Thin prep Papanicolaou smear with manual screening 3 5-15 [facility] Basophil percentageOrdered B y: Андрей Cooley on 04-19-2023 Basophil percentage 92 mg/dL 74-106 [facility] Basophil percentage 6.8 g/dL 6.4-8.2 [facility] Basophil percentage 0.20 mg/dL 0.20-1.00 [facility] Basophil percentage 140 mmol/L 136-145 [facility] Basophil percentage 4.0 mmol/L 3.5-5.1 [facility] Basophil percentage 105 mmol/L 98-107 [facility] Basophils (Bld) [#/Vol] 6.2 10*3/uL 4.4-11.0 [facility] Bilirubin [Mass/Vol] 0.20 mg/dL 0.20-1.00 [facility] Comment on above: For patients on eltr ombopag therapy, use of Dimension [place] TBIL is not recommended. Chloride [Moles/Vol] 105 mmol/L 98-107 [facility] Glucose [Mass/Vol] 92 mg/dL 74-106 [facility] Potassium [Moles/Vol] 4.0 mmol/L 3.5-5.1 [facility] Protein [Mass/Vol] 6.8 g/dL 6.4-8.2 [facility] Sodium [Moles/Vol] 140 mmol/L 136-145 [facility] WBC (Bld) [#/Vol] 6.2 10*3/uL 4.4-11.0 [facility] Blood erythrocytes count (nu mber/volume)Ordered By: Андрей Cooley on 04-19-2023 RBC (Bld) [#/Vol] 4.26 10*6/uL 4.6-6.2 [facility] Blood hemoglobin measurement (mass/volume)Ordered By: Андрей Cooley on 04-19-2023 Hemoglobin (Bld) [Mass/Vol] 13.6 g/dL 13.0-16.5 [facility] Blood platelet mean volumeOr dered By: Андрей Cooley on 04-19-2023 Platelet mean volume (Bld) [Entitic vol] 9.7 fL 6.2-12.0 [facility] Determination of erythrocyte mean corpuscular volume (MCV)Ordered By: Андрей Cooley on 04-19-2023 MCV (RBC) [Entitic vol] 99.5 fL 80-94 [facility] Hematocrit Auto (Bld) [Volum e fraction]Ordered By: Андрей Cooley on 04-19-2023 Hematocrit (Bld) [Volume fraction] 42.4 % 40-54 [facility] Laboratory - Chemistry and C hemistry - challengeOrdered By: Андрей Cooley on 04-19-2023 ALP [Catalytic activity/Vol] 82 U/L 45-117 [facility] ALT [Catalytic activity/Vol] 27 U/L 16-61 [facility] CO2 [Moles/Vol] 29.0 mmol/L 21.0-32.0 [facility] Globulin (S) [Mass/Vol] 3.5 g/dL 2.2-4.2 [facility] Urea nitrogen/Creatinine [Mass ratio] 22.2 mg/mg 10-20 [facility] Laboratory - Hematology and Cell countsOrdered By: Андрей Cooley on 04-19-2023 Erythrocyte distribution width (RBC) [Entitic vol] 51.8 fL 35.1-43.9 [facility] Erythrocyte distribution width (RBC) [Ratio] 14.4 % 11.6-14.6 [facility] MCH (RBC) [Entitic mass] 31.9 pg 27.0-32.0 [facility] MCHC Auto (RBC) [Mass/Vol]Or dered By: Андрей Cooley on 04-19-2023 MCHC (RBC) [Mass/Vol] 32.1 g/dL 32-36 [facility] No Panel InformationOrdered By: Андрей Cooley on 04-19-2023 Estimated GFR (MDRD) Amer 86 mL/min >60 [facility] Comment on above: GFR Calc Estimated GFR (MDRD) Non-Af Amer 71 mL/min >60 [facility] Comment on above: Non- GFR Calc 31.9 pg 27.0-32.0 [facility] 14.4 % 11.6-14.6 [facility] 51.8 fl 35.1-43.9 [facility] 71 mL/min >60 [facility] 86 mL/min >60 [facility] 22.2 RATIO 10-20 [facility] 3.5 g/dL 2.2-4.2 [facility] 82 U/L 45-117 [facility] 27 U/L 16-61 [facility] 29.0 mmol/L 21.0-32.0 [facility] Platelets bldOrdered By: Italia Cooley on 04-19-2023 Platelets (Bld) [#/Vol] 382 10*3/uL 150-450 [facility] Serum or plasma albumin luis urement (mass/volume)Ordered By: Андрей Cooley on 04-19-2023 Albumin [Mass/Vol] 3.3 g/dL 3.2-5.0 [facility] Serum or plasma albumin/glob ulin mass ratioOrdered By: Андрей Cooley on 04-19-2023 Albumin/Globulin [Mass ratio] 0.9 {ratio} 0.9-2.4 [facility] Serum or plasma calcium luis urement (mass/volume)Ordered By: Андрей Cooley on 04-19-2023 Calcium [Mass/Vol] 9.1 mg/dL 8.5-10.1 [facility] Serum or plasma creatinine m easurement (mass/volume)Ordered By: Андрей Cooley on 04-19-2023 Creatinine [Mass/Vol] 1.08 mg/dL 0.70-1.30 [facility] Comment on above: The validity of the calculated GFR & GFRAA in patients over 70 years has not been determined. Clinical correlation is essential. Serum or plasma urea nitroge n measurement (mass/volume)Ordered By: Андрей Cooley on 04-19-2023 Urea nitrogen [Mass/Vol] 24 mg/dL 7-18 [facility] Thin prep Papanicolaou smear with manual screeningOrdered By: Андрей Cooley on 04-19-2023 Thin prep Papanicolaou smear with manual screening 19 U/L 15-37 [facility] Thin prep Papanicolaou smear with manual screening 6 5-15 [facility] Whole blood hemoglobin A1c/t otal hemoglobin ratio (mass fraction)Ordered By: Андрей Cooley on 04-17-2023 HbA1c (Bld) [Mass fraction] 5.2 % 3.8-5.6 [facility] Comment on above: Normal < 5.7 % Predi abetic 5.7 - 6.4 % Diabetic >or= 6.5 % Please note range changes. Basophil percentageOrdered B y: Андрей Cooley on 04-12-2023 Basophil percentage 92 mg/dL 74-106 [facility] Basophil percentage 6.4 g/dL 6.4-8.2 [facility] Basophil percentage 0.10 mg/dL 0.20-1.00 [facility] Basophil percentage 139 mmol/L 136-145 [facility] Basophil percentage 4.1 mmol/L 3.5-5.1 [facility] Basophil percentage 107 mmol/L 98-107 [facility] Basophils (Bld) [#/Vol] 7.8 10*3/uL 4.4-11.0 [facility] Bilirubin [Mass/Vol] 0.10 mg/dL 0.20-1.00 [facility] Comment on above: For patients on eltr ombopag therapy, use of Dimension [place] TBIL is not recommended. Chloride [Moles/Vol] 107 mmol/L 98-107 [facility] Glucose [Mass/Vol] 92 mg/dL 74-106 [facility] Potassium [Moles/Vol] 4.1 mmol/L 3.5-5.1 [facility] Protein [Mass/Vol] 6.4 g/dL 6.4-8.2 [facility] Sodium [Moles/Vol] 139 mmol/L 136-145 [facility] WBC (Bld) [#/Vol] 7.8 10*3/uL 4.4-11.0 [facility] Blood erythrocytes count (nu mber/volume)Ordered By: Андрей Cooley on 04-12-2023 RBC (Bld) [#/Vol] 4.04 10*6/uL 4.6-6.2 [facility] Blood hemoglobin measurement (mass/volume)Ordered By: Андрей Cooley on 04-12-2023 Hemoglobin (Bld) [Mass/Vol] 13.2 g/dL 13.0-16.5 [facility] Blood platelet mean volumeOr dered By: Андрей Cooley on 04-12-2023 Platelet mean volume (Bld) [Entitic vol] 9.7 fL 6.2-12.0 [facility] Determination of erythrocyte mean corpuscular volume (MCV)Ordered By: Андрей Cooley on 04-12-2023 MCV (RBC) [Entitic vol] 97.5 fL 80-94 [facility] Hematocrit Auto (Bld) [Volum e fraction]Ordered By: Андрей Cooley on 04-12-2023 Hematocrit (Bld) [Volume fraction] 39.4 % 40-54 [facility] Laboratory - Chemistry and C hemistry - challengeOrdered By: Андрей Cooley on 04-12-2023 ALP [Catalytic activity/Vol] 88 U/L 45-117 [facility] ALT [Catalytic activity/Vol] 32 U/L 16-61 [facility] CO2 [Moles/Vol] 26.0 mmol/L 21.0-32.0 [facility] Globulin (S) [Mass/Vol] 3.4 g/dL 2.2-4.2 [facility] Urea nitrogen/Creatinine [Mass ratio] 20.2 mg/mg 10- [facility] - Hematology and Cell countsOrdered By: Андрей Cooley on 04-12-2023 Erythrocyte distribution width (RBC) [Entitic vol] 49.3 fL 35.1-43.9 [facility] Erythrocyte distribution width (RBC) [Ratio] 13.8 % 11.6-14.6 [facility] MCH (RBC) [Entitic mass] 32.7 pg 27.0-32.0 [facility] MCHC Auto (RBC) [Mass/Vol]Or dered By: Андрей Cooley on 04-12-2023 MCHC (RBC) [Mass/Vol] 33.5 g/dL 32-36 [facility] No Panel InformationOrdered By: Андрей Cooley on 04-12-2023 Estimated GFR (MDRD) Amer 77 mL/min >60 [facility] Comment on above: GFR Calc Estimated GFR (MDRD) Non-Af Amer 64 mL/min >60 [facility] Comment on above: Non- GFR Calc 32.7 pg 27.0-32.0 [facility] 13.8 % 11.6-14.6 [facility] 49.3 fl 35.1-43.9 [facility] 64 mL/min >60 [facility] 77 mL/min >60 [facility] 20.2 RATIO 04-07 [facility] 3.4 g/dL 2.2-4.2 [facility] 88 U/L 45-117 [facility] 32 U/L 16-61 [facility] 26.0 mmol/L 21.0-32.0 [facility] Platelets bldOrdered By: Italia Cooley on 04-12-2023 Platelets (Bld) [#/Vol] 385 10*3/uL 150-450 [facility] Serum or plasma albumin luis urement (mass/volume)Ordered By: Андрей Cooley on 04-12-2023 Albumin [Mass/Vol] 3.0 g/dL 3.2-5.0 [facility] Serum or plasma albumin/glob ulin mass ratioOrdered By: Андрей Cooley on 04-12-2023 Albumin/Globulin [Mass ratio] 0.9 {ratio} 0.9-2.4 [facility] Serum or plasma calcium luis urement (mass/volume)Ordered By: Андрей Cooley on 04-12-2023 Calcium [Mass/Vol] 8.7 mg/dL 8.5-10.1 [facility] Serum or plasma creatinine m easurement (mass/volume)Ordered By: Андрей Cooley on 04-12-2023 Creatinine [Mass/Vol] 1.19 mg/dL 0.70-1.30 [facility] Comment on above: The validity of the calculated GFR & GFRAA in patients over 70 years has not been determined. Clinical correlation is essential. Serum or plasma urea nitroge n measurement (mass/volume)Ordered By: Андрей Cooley on 04-12-2023 Urea nitrogen [Mass/Vol] 24 mg/dL 7-18 [facility] Thin prep Papanicolaou smear with manual screeningOrdered By: Андрей Cooley on 04-12-2023 Thin prep Papanicolaou smear with manual screening 21 U/L 15-37 [facility] Thin prep Papanicolaou smear with manual screening 6 5-15 [facility] Basophil percentageOrdered B y: Андрей Cooley on 04-05-2023 Basophil percentage 105 mg/dL 74-106 [facility] Basophil percentage 6.7 g/dL 6.4-8.2 [facility] Basophil percentage 0.20 mg/dL 0.20-1.00 [facility] Basophil percentage 139 mmol/L 136-145 [facility] Basophil percentage 3.9 mmol/L 3.5-5.1 [facility] Basophil percentage 105 mmol/L 98-107 [facility] Basophils (Bld) [#/Vol] 5.8 10*3/uL 4.4-11.0 [facility] Bilirubin [Mass/Vol] 0.20 mg/dL 0.20-1.00 [facility] Comment on above: For patients on eltr ombopag therapy, use of Dimension [place] TBIL is not recommended. Chloride [Moles/Vol] 105 mmol/L 98-107 [facility] Glucose [Mass/Vol] 105 mg/dL 74-106 [facility] Comment on above: Fasting Glucose resu lt from 100 to 125 mg/dL suggests IMPAIRED HOMEOSTASIS per A.D.A. criteria. Potassium [Moles/Vol] 3.9 mmol/L 3.5-5.1 [facility] Protein [Mass/Vol] 6.7 g/dL 6.4-8.2 [facility] Sodium [Moles/Vol] 139 mmol/L 136-145 [facility] WBC (Bld) [#/Vol] 5.8 10*3/uL 4.4-11.0 [facility] Blood erythrocytes count (nu mber/volume)Ordered By: Андрей Cooley on 04-05-2023 RBC (Bld) [#/Vol] 4.40 10*6/uL 4.6-6.2 [facility] Blood hemoglobin measurement (mass/volume)Ordered By: Андрей Cooley on 04-05-2023 Hemoglobin (Bld) [Mass/Vol] 13.9 g/dL 13.0-16.5 [facility] Blood platelet mean volumeOr dered By: Андрей Cooley on 04-05-2023 Platelet mean volume (Bld) [Entitic vol] 9.5 fL 6.2-12.0 [facility] Determination of erythrocyte mean corpuscular volume (MCV)Ordered By: Андрей Cooley on 04-05-2023 MCV (RBC) [Entitic vol] 96.8 fL 80-94 [facility] Hematocrit Auto (Bld) [Volum e fraction]Ordered By: Андрей Cooley on 04-05-2023 Hematocrit (Bld) [Volume fraction] 42.6 % 40-54 [facility] Laboratory - Chemistry and C hemistry - challengeOrdered By: Андрей Cooley on 04-05-2023 ALP [Catalytic activity/Vol] 60 U/L 45-117 [facility] ALT [Catalytic activity/Vol] 54 U/L 16-61 [facility] CO2 [Moles/Vol] 28.0 mmol/L 21.0-32.0 [facility] Globulin (S) [Mass/Vol] 3.8 g/dL 2.2-4.2 [facility] Urea nitrogen/Creatinine [Mass ratio] 22.0 mg/mg 10-20 [facility] Laboratory - Hematology and Cell countsOrdered By: Андрей Cooley on 04-05-2023 Erythrocyte distribution width (RBC) [Entitic vol] 50.1 fL 35.1-43.9 [facility] Erythrocyte distribution width (RBC) [Ratio] 14.0 % 11.6-14.6 [facility] MCH (RBC) [Entitic mass] 31.6 pg 27.0-32.0 [facility] MCHC Auto (RBC) [Mass/Vol]Or dered By: Андрей Cooley on 04-05-2023 MCHC (RBC) [Mass/Vol] 32.6 g/dL 32-36 [facility] No Panel InformationOrdered By: Андрей Cooley on 04-05-2023 Estimated GFR (MDRD) Amer 85 mL/min >60 [facility] Comment on above: GFR Calc Estimated GFR (MDRD) Non-Af Amer 70 mL/min >60 [facility] Comment on above: Non- GFR Calc 31.6 pg 27.0-32.0 [facility] 14.0 % 11.6-14.6 [facility] 50.1 fl 35.1-43.9 [facility] 70 mL/min >60 [facility] 85 mL/min >60 [facility] 22.0 RATIO 10-20 [facility] 3.8 g/dL 2.2-4.2 [facility] 60 U/L 45-117 [facility] 54 U/L 16-61 [facility] 28.0 mmol/L 21.0-32.0 [facility] Platelets bldOrdered By: Italia Cooley on 04-05-2023 Platelets (Bld) [#/Vol] 399 10*3/uL 150-450 [facility] Serum or plasma albumin luis urement (mass/volume)Ordered By: Андрей Cooley on 04-05-2023 Albumin [Mass/Vol] 2.9 g/dL 3.2-5.0 [facility] Serum or plasma albumin/glob ulin mass ratioOrdered By: Андрей Cooley on 04-05-2023 Albumin/Globulin [Mass ratio] 0.8 {ratio} 0.9-2.4 [facility] Serum or plasma calcium luis urement (mass/volume)Ordered By: Андрей Cooley on 04-05-2023 Calcium [Mass/Vol] 9.3 mg/dL 8.5-10.1 [facility] Serum or plasma creatinine m easurement (mass/volume)Ordered By: Андрей Cooley on 04-05-2023 Creatinine [Mass/Vol] 1.09 mg/dL 0.70-1.30 [facility] Comment on above: The validity of the calculated GFR & GFRAA in patients over 70 years has not been determined. Clinical correlation is essential. Serum or plasma urea nitroge n measurement (mass/volume)Ordered By: Андрей Cooley on 04-05-2023 Urea nitrogen [Mass/Vol] 24 mg/dL -18 [facility] Thin prep Papanicolaou smear with manual screeningOrdered By: Андрей Cooley on 04-05-2023 Thin prep Papanicolaou smear with manual screening 38 U/L 15-37 [facility] Thin prep Papanicolaou smear with manual screening 6 5-15 [facility] Absolute lymphocyte countOrd ered By: Frankie Galindo on 04-04-2023 Lymphocytes Auto (Unsp spec) [#/Vol] 1.49 10*3/uL 0.83-4.51 [facility] Basophil percentageOrdered B y: Frankie Galindo on 04-04-2023 Basophil percentage 101 mg/dL 74-106 [facility] Basophil percentage 136 mmol/L 136-145 [facility] Basophil percentage 3.9 mmol/L 3.5-5.1 [facility] Basophil percentage 103 mmol/L 98-107 [facility] Basophils (Bld) [#/Vol] 6.3 10*3/uL 4.4-11.0 [facility] Basophils (Bld) [#/Vol] 4.1 10*3/uL 2.0-7.7 [facility] Basophils/100 WBC (Bld) 1.1 % 0-1 [facility] Basophils/100 WBC (Bld) 64.4 % 47-70 [facility] Basophils/100 WBC (Bld) 3.3 % 0-5 [facility] Chloride [Moles/Vol] 103 mmol/L 98-107 [facility] Eosinophils/100 WBC (Bld) 3.3 % 0-5 [facility] Glucose [Mass/Vol] 101 mg/dL 74-106 [facility] Comment on above: Fasting Glucose resu lt from 100 to 125 mg/dL suggests IMPAIRED HOMEOSTASIS per A.D.A. criteria. Neutrophils (Bld) [#/Vol] 4.1 10*3/uL 2.0-7.7 [facility] Neutrophils/100 WBC (Bld) 64.4 % 47-70 [facility] Potassium [Moles/Vol] 3.9 mmol/L 3.5-5.1 [facility] Sodium [Moles/Vol] 136 mmol/L 136-145 [facility] WBC (Bld) [#/Vol] 6.3 10*3/uL 4.4-11.0 [facility] Blood erythrocytes count (nu mber/volume)Ordered By: Frankie Galindo on 04-04-2023 RBC (Bld) [#/Vol] 4.82 10*6/uL 4.6-6.2 [facility] Blood hemoglobin measurement (mass/volume)Ordered By: Frankie Galindo on 04-04-2023 Hemoglobin (Bld) [Mass/Vol] 15.1 g/dL 13.0-16.5 [facility] Blood lymphocytes/100 leukoc ytesOrdered By: Frankie Galindo on 04-04-2023 Lymphocytes/100 WBC (Bld) 23.6 % 19-41 [facility] Blood monocytes/100 leukocyt esOrdered By: Frankie Galindo on 04-04-2023 Monocytes/100 WBC (Bld) 6.3 % 0-10 [facility] Blood platelet mean volumeOr dered By: Frankie Galindo on 04-04-2023 Platelet mean volume (Bld) [Entitic vol] 9.3 fL 6.2-12.0 [facility] Determination of erythrocyte mean corpuscular volume (MCV)Ordered By: Frankie Galindo on 04-04-2023 MCV (RBC) [Entitic vol] 96.7 fL 80-94 [facility] Hematocrit Auto (Bld) [Volum e fraction]Ordered By: Frankie Galindo on 04-04-2023 Hematocrit (Bld) [Volume fraction] 46.6 % 40-54 [facility] Laboratory - Chemistry and C hemistry - challengeOrdered By: Frankie Galindo on 04-04-2023 CO2 [Moles/Vol] 29.0 mmol/L 21.0-32.0 [facility] Urea nitrogen/Creatinine [Mass ratio] 20.3 mg/mg 04-07 [facility] - Hematology and Cell countsOrdered By: Frankie Galindo on 04-04-2023 Erythrocyte distribution width (RBC) [Entitic vol] 48.9 fL 35.1-43.9 [facility] Erythrocyte distribution width (RBC) [Ratio] 13.6 % 11.6-14.6 [facility] Immature granulocytes/100 WBC (Bld) 1.300 % 0.0-0.9 [facility] Comment on above: IG% - Immature Granu locytes (promyelocytes, myelocytes and metamyelocytes) > 1% indicates that a LEFT SHIFT is Present. MCH (RBC) [Entitic mass] 31.3 pg 27.0-32.0 [facility] Nucleated RBC/100 WBC (Bld) [Ratio] 0 % 0- [facility] MCHC Auto (RBC) [Mass/Vol]Or dered By: Frankie Galindo on 04-04-2023 MCHC (RBC) [Mass/Vol] 32.4 g/dL 32-36 [facility] No Panel InformationOrdered By: Frankie Galindo on 04-04-2023 Estimated Creatinine Clearance Calc 45.80 ml/min [facility] Estimated GFR (MDRD) Amer 71 mL/min >60 [facility] Comment on above: GFR Calc Estimated GFR (MDRD) Non-Af Amer 58 mL/min >60 [facility] Comment on above: Non- GFR Calc 31.3 pg 27.0-32.0 [facility] 13.6 % 11.6-14.6 [facility] 48.9 fl 35.1-43.9 [facility] 1.300 % 0.0-0.9 [facility] 0 % 0-5 [facility] 58 mL/min >60 [facility] 71 mL/min >60 [facility] 45.80 ml/min [facility] 20.3 RATIO 04-07 [facility] 29.0 mmol/L 21.0-32.0 [facility] Platelets bldOrdered By: Sebastien Galindo on 04-04-2023 Platelets (Bld) [#/Vol] 379 10*3/uL 150-450 [facility] Serum or plasma calcium luis urement (mass/volume)Ordered By: Frankie Galindo on 04-04-2023 Calcium [Mass/Vol] 9.7 mg/dL 8.5-10.1 [facility] Serum or plasma creatinine m easurement (mass/volume)Ordered By: Frankie Galindo on 04-04-2023 Creatinine [Mass/Vol] 1.28 mg/dL 0.70-1.30 [facility] Comment on above: The validity of the calculated GFR & GFRAA in patients over 70 years has not been determined. Clinical correlation is essential. Serum or plasma urea nitroge n measurement (mass/volume)Ordered By: Frankie Galindo on 04-04-2023 Urea nitrogen [Mass/Vol] 26 mg/dL 7-18 [facility] Thin prep Papanicolaou smear with manual screeningOrdered By: Frankie Galindo on 04-04-2023 Thin prep Papanicolaou smear with manual screening 4 10-31 [facility] Basophil percentageOrdered B y: Frankie Galindo on 04-02-2023 Basophil percentage 2.6 mg/dL 2.5-4.9 [facility] Laboratory - Chemistry and C hemistry - challengeOrdered By: Frankie Galindo on 04-02-2023 Magnesium [Mass/Vol] 2.0 mg/dL 1.6-2.6 [facility] No Panel InformationOrdered By: Frankie Galindo on 04-02-2023 2.0 mg/dL 1.6-2.6 [facility] Basophil percentageOrdered B y: Celia Toribio on 04-01-2023 Basophil percentage 6.5 g/dL 6.4-8.2 [facility] Basophil percentage 0.30 mg/dL 0.20-1.00 [facility] Bilirubin [Mass/Vol] 0.30 mg/dL 0.20-1.00 [facility] Comment on above: For patients on eltr ombopag therapy, use of Dimension [place] TBIL is not recommended. Protein [Mass/Vol] 6.5 g/dL 6.4-8.2 [facility] Laboratory - Chemistry and C hemistry - challengeOrdered By: Celia Toribio on 04-01-2023 ALP [Catalytic activity/Vol] 57 U/L 45- [facility] ALT [Catalytic activity/Vol] 21 U/L [facility] Globulin (S) [Mass/Vol] 3.9 g/dL 2.2-4.2 [facility] No Panel InformationOrdered By: Celia Toribio on 04-01-2023 3.9 g/dL 2.2-4.2 [facility] 57 U/L - [facility] 21 U/L [facility] Serum or plasma albumin luis urement (mass/volume)Ordered By: Celia Toribio on 04-01-2023 Albumin [Mass/Vol] 2.6 g/dL 3.2-5.0 [facility] Serum or plasma albumin/glob ulin mass ratioOrdered By: Celia Toribio on 04-01-2023 Albumin/Globulin [Mass ratio] 0.7 {ratio} 0.9-2.4 [facility] Thin prep Papanicolaou smear with manual screeningOrdered By: Celia Toribio on 04-01-2023 Thin prep Papanicolaou smear with manual screening 12 U/L 15-37 [facility] Absolute lymphocyte countOrd ered By: Huber Alvarado on 03-30-2023 Lymphocytes Auto (Unsp spec) [#/Vol] 0.93 10*3/uL 0.83-4.51 [facility] Bacteria identified Cx Nom ( U)Ordered By: Huber Alvarado on 03-30-2023 Culture, urine ESBL Escherichia coli [facility] Basophil percentageOrdered B y: Huber Alvarado on 03-30-2023 Basophil percentage 1.4 mmol/L 0.4-2.0 [facility] Lactate [Moles/Vol] 1.4 mmol/L 0.4-2.0 [facility] Basophil percentage 25-50 SEEN /hpf 0-5 [facility] Basophils/100 WBC (Bld) 0.7 % 0-1 [facility] Chloride [Moles/Vol] 99 mmol/L 98-107 [facility] Eosinophils/100 WBC (Bld) 0.0 % 0-5 [facility] Glucose [Mass/Vol] 104 mg/dL 74-106 [facility] Comment on above: Fasting Glucose resu lt from 100 to 125 mg/dL suggests IMPAIRED HOMEOSTASIS per A.D.A. criteria. Neutrophils (Bld) [#/Vol] 7.9 10*3/uL 2.0-7.7 [facility] Neutrophils/100 WBC (Bld) 79.2 % 47-70 [facility] Potassium [Moles/Vol] 4.0 mmol/L 3.5-5.1 [facility] Sodium [Moles/Vol] 134 mmol/L 136-145 [facility] WBC (Bld) [#/Vol] 10.0 10*3/uL 4.4-11.0 [facility] Bilirubin Test strip Ql (U)O rdered By: Huber Alvarado on 03-30-2023 Bilirubin Ql (U) Negative Negative [facility] Blood erythrocytes count (nu mber/volume)Ordered By: Huber Alvarado on 03-30-2023 RBC (Bld) [#/Vol] 4.81 10*6/uL 4.6-6.2 [facility] Blood hemoglobin measurement (mass/volume)Ordered By: Huber Alvarado on 03-30-2023 Hemoglobin (Bld) [Mass/Vol] 15.4 g/dL 13.0-16.5 [facility] Blood lymphocytes/100 leukoc ytesOrdered By: Huber Alvarado on 03-30-2023 Lymphocytes/100 WBC (Bld) 9.3 % 19-41 [facility] Blood monocytes/100 leukocyt esOrdered By: Huber Alvarado on 03-30-2023 Monocytes/100 WBC (Bld) 10.5 % 0-10 [facility] Blood platelet mean volumeOr dered By: Huber Alvarado on 03-30-2023 Platelet mean volume (Bld) [Entitic vol] 9.8 fL 6.2-12.0 [facility] Culture, urineOrdered By: Baldo Chan on 03-30-2023 Bacteria identified Cx Nom (U) ESBL Escherichia coli [facility] Bacteria identified Cx Nom (U) ESBL Escherichia coli [facility] Determination of erythrocyte mean corpuscular volume (MCV)Ordered By: Huber Alvarado on 03-30-2023 MCV (RBC) [Entitic vol] 97.5 fL 80-94 [facility] Hematocrit Auto (Bld) [Volum e fraction]Ordered By: Huber Alvarado on 03-30-2023 Hematocrit (Bld) [Volume fraction] 46.9 % 40-54 [facility] Ketones Test strip Ql (U)Ord ered By: Huber Alvarado on 03-30-2023 Ketones Ql (U) Negative Negative [facility] Laboratory - Chemistry and C hemistry - challengeOrdered By: Huber Alvarado on 03-30-2023 CO2 [Moles/Vol] 31.0 mmol/L 21.0-32.0 [facility] Urea nitrogen/Creatinine [Mass ratio] 16.0 mg/mg 10-20 [facility] Laboratory - Hematology and Cell countsOrdered By: Huber Alvarado on 03-30-2023 Erythrocyte distribution width (RBC) [Entitic vol] 50.3 fL 35.1-43.9 [facility] Erythrocyte distribution width (RBC) [Ratio] 13.9 % 11.6-14.6 [facility] Immature granulocytes/100 WBC (Bld) 0.300 % 0.0-0.9 [facility] Comment on above: IG% - Immature Granu locytes (promyelocytes, myelocytes and metamyelocytes) > 1% indicates that a LEFT SHIFT is Present. MCH (RBC) [Entitic mass] 32.0 pg 27.0-32.0 [facility] Nucleated RBC/100 WBC (Bld) [Ratio] 0 % 0-5 [facility] Laboratory - Microbiology an d Antimicrobial susceptibilityOrdered By: Huber Alvarado on 03-30-2023 Bacteria identified Cx Nom (Bld) No growth in 5 days. [facility] MCHC Auto (RBC) [Mass/Vol]Or dered By: Huber Alvarado on 03-30-2023 MCHC (RBC) [Mass/Vol] 32.8 g/dL 32-36 [facility] Mucus LM Ql (Urine sed)Order ed By: Huber Alvarado on 03-30-2023 Mucus Ql (Urine sed) 0 SEEN /hpf [facility] Nitrite Test strip Ql (U)Ord ered By: Huber Alvarado on 03-30-2023 Nitrite Ql (U) Negative Negative [facility] No Panel InformationOrdered By: Huber Alvarado on 03-30-2023 No growth in 5 days. [facility] Estimated GFR (MDRD) Amer 77 mL/min >60 [facility] Comment on above: GFR Calc Estimated GFR (MDRD) Non-Af Amer 64 mL/min >60 [facility] Comment on above: Non- GFR Calc Platelets bldOrdered By: Beck Alvarado on 03-30-2023 Platelets (Bld) [#/Vol] 276 10*3/uL 150-450 [facility] Protein Test strip Ql (U)Ord ered By: Huber Alvarado on 03-30-2023 Protein Ql (U) 100 mg/dl Negative [facility] Serum or plasma calcium luis urement (mass/volume)Ordered By: Huber Alvarado on 03-30-2023 Calcium [Mass/Vol] 9.8 mg/dL 8.5-10.1 [facility] Serum or plasma creatinine m easurement (mass/volume)Ordered By: Huber Alvarado on 03-30-2023 Creatinine [Mass/Vol] 1.19 mg/dL 0.70-1.30 [facility] Comment on above: The validity of the calculated GFR & GFRAA in patients over 70 years has not been determined. Clinical correlation is essential. Serum or plasma urea nitroge n measurement (mass/volume)Ordered By: Huber Alvarado on 03-30-2023 Urea nitrogen [Mass/Vol] 19 mg/dL 7-18 [facility] Squamous epithelial cells de tection in urine sediment by light microscopyOrdered By: Huber Alvarado on 03-30-2023 Epithelial cells.squamous LM Ql (Urine sed) 0-5 SEEN /hpf 0-5 [facility] Thin prep Papanicolaou smear with manual screeningOrdered By: Huber Alvarado on 03-30-2023 Thin prep Papanicolaou smear with manual screening 4 5-15 [facility] Urine blood detectionOrdered By: Huber Alvarado on 03-30-2023 RBC Ql (U) 50 /ul Negative [facility] RBC Ql (U) 0 SEEN /hpf 0-5 [facility] Urine clarityOrdered By: Beck Alvarado on 03-30-2023 Clarity (U) Sl. Cloudy Clear [facility] Urine color determinationOrd ered By: Huber Alvarado on 03-30-2023 Color (U) Yellow Yellow [facility] Urine glucose detectionOrder ed By: Huber Alvarado on 03-30-2023 Glucose Ql (U) Normal mg/dl Normal [facility] Urine leukocyte esterase det ection by dipstickOrdered By: Huber Alvarado on 03-30-2023 Leukocyte esterase Test strip Ql (U) 500 /ul Negative [facility] Urine pHOrdered By: Huber billingsley on 03-30-2023 pH (U) 6.0 [pH] 5.0 - 8.0 [facility] Urine sediment bacteria coun t by microscopy (number/high power field)Ordered By: Huber Alvarado on 03-30-2023 Bacteria LM.HPF (Urine sed) [#/Area] 3 /[HPF] None Seen [facility] Urine specific gravity measu rementOrdered By: Huber Alvarado on 03-30-2023 Specific gravity (U) [Rel density] 1.020 1.002-1.030 [facility] Urobilinogen Auto test strip Ql (U)Ordered By: Huber Alvarado on 03-30-2023 Urobilinogen Ql (U) Normal mg/dl Normal [facility] INR in Blood by Coagulation assayOrdered By: Jaden Jauregui on 02-18-2023 INR Coag (Bld) [Relative time] 0.9 {INR} [facility] Laboratory - CoagulationOrde red By: Jaden Jauregui on 02-18-2023 PT Coag (PPP) [Time] 12.4 s 11.7-14.[address] [facility] [address] ABD/PELVIS W/ IV CONTRAST ONLYon [...] 10/22/2022 10:33:36 PM Ordering Provider: PRIYANKA FRANCO [facility] ([place]) .Auto Diffon 10-22-2022 Basophil, Absolute 0.1 10 3/mcL Normal 0.0-0.2 [facility] ([place]) Comment on above: Performed By: #### A DIFF, LIP, MDW, CMP, GFR, ANEU, CBC #### [address] [address] Basophils/100 WBC (Bld) 0.8 % Normal 0.0-2.5 [facility] ([place] Comment on above: Performed By: #### A DIFF, LIP, MDW, CMP, GFR, ANEU, CBC #### [address] [address] Eosinophil, Absolute 0.0 10 3/mcL Normal 0.0-0.4 [facility] ([place]) Comment on above: Performed By: #### A DIFF, LIP, MDW, CMP, GFR, ANEU, CBC #### [address] [address] Eosinophils/100 WBC (Bld) 0.3 % Normal 0.0-7.0 [facility] ([place]) Comment on above: Performed By: #### A DIFF, LIP, MDW, CMP, GFR, ANEU, CBC #### [address] [address] Lymphocyte, Absolute 0.9 10 3/mcL Normal 0.8-3.9 [facility] ([place]) Comment on above: Performed By: #### A DIFF, LIP, MDW, CMP, GFR, ANEU, CBC #### [address] [address] Lymphocytes/100 WBC (Bld) 8.1 % Low 10.0-50.0 [facility] ([place]) Comment on above: Performed By: #### A DIFF, LIP, MDW, CMP, GFR, ANEU, CBC #### [address] [address] Monocyte, Absolute 0.7 10 3/mcL Normal 0.2-1.0 [facility] ([place]) Comment on above: Performed By: #### A DIFF, LIP, MDW, CMP, GFR, ANEU, CBC #### [address] [address] Monocytes/100 WBC (Bld) 6.8 % Normal 1.7-13.0 [facility] ([place] Comment on above: Performed By: #### A DIFF, FILIBERTO, MDW, CMP, GFR, ANEU, CBC #### [address] [address] Neutrophils/100 WBC (Bld) 84.0 % High 37.0-80.0 [facility] ([place]) Comment on above: Performed By: #### A DIFF, LIP, MDW, CMP, GFR, ANEU, CBC #### [address] [address] .GFRon 10-22-2022 GFR Non- 58 ml/min/1.73sqm Normal [facility] ([place]) Comment on above: Result Comment: GFR Population [...] square meters Performed By: #### A DIFF, FILIBERTO, MDW, CMP, GFR, ANEU, CBC #### [address] [address] GFR 71 ml/min/1.73sqm Normal [facility] ([place]) Comment on above: Result Comment: GFR Population [...] LIP, MDW, CMP, GFR, ANEU, CBC #### [address] [address] .MDWon 10-22-2022 Monocyte Distribution Width 24.33 High 0.00-20.00 [facility] ([place]) Comment on above: Result Comment: For adults in ED, MDW>20.0 may be associated with a higher risk of sepsis during the first 12hrs of hospital admission Performed By: #### A DIFF, LIP, MDW, CMP, GFR, ANEU, CBC #### [address] [address] .NEUABSon 10-22-2022 Neutrophil, Absolute 8.9 10 3/mcL High 2.9-6.2 [facility] ([place]) Comment on above: Performed By: #### A DIFF, LIP, MDW, CMP, GFR, ANEU, CBC #### [address] [address] CBCon 10-22-2022 Erythrocyte distribution width (RBC) [Ratio] 14.0 % Normal 11.5-14.5 [facility] ([place]) Comment on above: Performed By: #### A DIFF, LIP, MDW, CMP, GFR, ANEU, CBC #### [address] [address] Hematocrit (Bld) [Volume fraction] 38.9 % Low 42.0-52.0 [facility] ([place]) Comment on above: Performed By: #### A DIFF, LIP, MDW, CMP, GFR, ANEU, CBC #### [address] [address] Hgb 13.5 G/dL Low 14.0-18.0 [facility] ([place]) Comment on above: Performed By: #### A DIFF, LIP, MDW, CMP, GFR, ANEU, CBC #### [address] [address] MCH (RBC) [Entitic mass] 33.0 pg High 27.0-31.2 [facility] ([place]) Comment on above: Performed By: #### A DIFF, LIP, MDW, CMP, GFR, ANEU, CBC #### [address] [address] MCHC 34.8 G/dL Normal 31.8-35.4 [facility] ([place]) Comment on above: Performed By: #### A DIFF, LIP, MDW, CMP, GFR, ANEU, CBC #### [address] [address] MCV (RBC) [Entitic vol] 95.0 fL High 80.0-94.0 [facility] ([place]) Comment on above: Performed By: #### A DIFF, LIP, MDW, CMP, GFR, ANEU, CBC #### [address] [address] Platelet 344 10 3/mcL Normal 130-400 [facility] ([place]) Comment on above: Performed By: #### A DIFF, LIP, MDW, CMP, GFR, ANEU, CBC #### [address] [address] Platelet mean volume (Bld) [Entitic vol] 7.1 fL Low 7.4-10.4 [facility] ([place]) Comment on above: Performed By: #### A DIFF, LIP, MDW, CMP, GFR, ANEU, CBC #### [address] [address] RBC 4.10 10 6/mcL Normal 4.04-6.13 [facility] ([place]) Comment on above: Performed By: #### A DIFF, LIP, MDW, CMP, GFR, ANEU, CBC #### [address] [address] WBC 10.6 10 3/mcL Normal 4.6-10.8 [facility] ([place]) Comment on above: Performed By: #### A DIFF, LIP, MDW, CMP, GFR, ANEU, CBC #### [address] [address] CMPon 10-22-2022 Albumin Level 2.9 G/dL Low 3.4-4.8 [facility] ([place]) Comment on above: Performed By: #### A DIFF, LIP, MDW, CMP, GFR, ANEU, CBC #### [address] [address] Albumin/Globulin [Mass ratio] 0.8 {ratio} Low 1.1-2.5 [facility] ([place]) Comment on above: Performed By: #### A DIFF, LIP, MDW, CMP, GFR, ANEU, CBC #### [address] [address] ALP [Catalytic activity/Vol] 98 U/L Normal 40-135 [facility] ([place]) Comment on above: Performed By: #### A DIFF, LIP, MDW, CMP, GFR, ANEU, CBC #### [address] [address] ALT [Catalytic activity/Vol] 46 U/L Normal 16-63 [facility] ([place]) Comment on above: Performed By: #### A DIFF, LIP, MDW, CMP, GFR, ANEU, CBC #### [address] [address] AST [Catalytic activity/Vol] 29 U/L Normal 10-40 [facility] ([place]) Comment on above: Performed By: #### A DIFF, LIP, MDW, CMP, GFR, ANEU, CBC #### [address] [address] Bili Total 0.3 mg/dL Normal 0.2-1.0 [facility] ([place]) Comment on above: Result Comment: Use of this assay is not recommended for patients undergoing treatment with eltrombopag due to the potential for falsely elevated results. Performed By: #### A DIFF, LIP, MDW, CMP, GFR, ANEU, CBC #### [address] [address] BUN/Creatinine Ratio 17 ratio Normal 7-27 [facility] ([place]) Comment on above: Performed By: #### A DIFF, LIP, MDW, CMP, GFR, ANEU, CBC #### [address] [address] Calcium [Mass/Vol] 9.2 mg/dL Normal 8.4-10.2 [facility] ([place]) Comment on above: Performed By: #### A DIFF, LIP, MDW, CMP, GFR, ANEU, CBC #### [address] [address] Chloride [Moles/Vol] 96 mmol/L Low 98-107 [facility] ([place]) Comment on above: Performed By: #### A DIFF, LIP, MDW, CMP, GFR, ANEU, CBC #### [address] [address] CO2 [Moles/Vol] 33 mmol/L High 23-31 [facility] ([place]) Comment on above: Performed By: #### A DIFF, LIP, MDW, CMP, GFR, ANEU, CBC #### [address] [address] Creatinine [Mass/Vol] 1.22 mg/dL Normal 0.70-1.30 [facility] ([place]) Comment on above: Performed By: #### A DIFF, LIP, MDW, CMP, GFR, ANEU, CBC #### [address] [address] Electrolyte Balance 5.0 mEq/L Normal 4.0-15.0 [facility] ([place]) Comment on above: Performed By: #### A DIFF, LIP, MDW, CMP, GFR, ANEU, CBC #### [address] [address] Globulin 3.5 G/dL Normal [facility] ([place]) Comment on above: Performed By: #### A DIFF, LIP, MDW, CMP, GFR, ANEU, CBC #### [address] [address] Glucose [Mass/Vol] 111 mg/dL High 83-110 [facility] ([place]) Comment on above: Performed By: #### A DIFF, LIP, MDW, CMP, GFR, ANEU, CBC #### [address] [address] Potassium [Moles/Vol] 4.3 mmol/L Normal 3.5-5.1 [facility] ([place]) Comment on above: Performed By: #### A DIFF, LIP, MDW, CMP, GFR, ANEU, CBC #### [address] [address] Sodium [Moles/Vol] 134 mmol/L Low 136-145 [facility] ([place] Comment on above: Performed By: #### A DIFF, LIP, MDW, CMP, GFR, ANEU, CBC #### [address] [address] Total Protein 6.4 G/dL Normal 6.4-8.2 [facility] ([place]) Comment on above: Performed By: #### A DIFF, LIP, MDW, CMP, GFR, ANEU, CBC #### [address] [address] Urea nitrogen [Mass/Vol] 21 mg/dL High 7-18 [facility] ([place]) Comment on above: Performed By: #### A DIFF, LIP, MDW, CMP, GFR, ANEU, CBC #### [address] [address] LABORATORYOrdered By: SYSTEM SYSTEM on 10-22-2022 Albumin [...] Level 32 U/L Normal 16-77 [facility] ([place]) Comment on above: Performed By: #### A DIFF, LIP, MDW, CMP, GFR, ANEU, CBC #### [address] [place], [place] [address] Absolute lymphocyte countOrd ered By: Dr. Jauregui on 10-21-2022 Lymphocytes Auto (Unsp spec) [#/Vol] 0.85 10*3/uL 0.83-4.51 [facility] Basophil percentageOrdered B y: Dr. Jauregui on 10-21-2022 Basophil percentage 25-50 SEEN /hpf 0-5 [facility] Basophils/100 WBC (Bld) 0.6 % 0-1 [facility] Bilirubin [Mass/Vol] 0.30 mg/dL 0.20-1.00 [facility] Comment on above: For patients on eltr ombopag therapy, use of Dimension [place] TBIL is not recommended. Chloride [Moles/Vol] 99 mmol/L 98-107 [facility] Eosinophils/100 WBC (Bld) 0.4 % 0-5 [facility] Glucose [Mass/Vol] 104 mg/dL 74-106 [facility] Comment on above: Fasting Glucose resu lt from 100 to 125 mg/dL suggests IMPAIRED HOMEOSTASIS per A.D.A. criteria. Neutrophils (Bld) [#/Vol] 8.8 10*3/uL 2.0-7.7 [facility] Neutrophils/100 WBC (Bld) 84.2 % 47-70 [facility] Potassium [Moles/Vol] 3.6 mmol/L 3.5-5.1 [facility] Protein [Mass/Vol] 7.2 g/dL 6.4-8.2 [facility] Sodium [Moles/Vol] 135 mmol/L 136-145 [facility] WBC (Bld) [#/Vol] 10.4 10*3/uL 4.4-11.0 [facility] Bilirubin Test strip Ql (U)O rdered By: Dr. Jauregui on 10-21-2022 Bilirubin Ql (U) Negative Negative [facility] Blood erythrocytes count (nu mber/volume)Ordered By: Dr. Jauregui on 10-21-2022 RBC (Bld) [#/Vol] 4.51 10*6/uL 4.6-6.2 [facility] Blood hemoglobin measurement (mass/volume)Ordered By: Dr. Jauregui on 10-21-2022 Hemoglobin (Bld) [Mass/Vol] 14.4 g/dL 13.0-16.5 [facility] Blood lymphocytes/100 leukoc ytesOrdered By: Dr. Jauregui on 10-21-2022 Lymphocytes/100 WBC (Bld) 8.2 % 19-41 [facility] Blood monocytes/100 leukocyt esOrdered By: Dr. Jauregui on 10-21-2022 Monocytes/100 WBC (Bld) 5.4 % 0-10 [facility] Blood platelet mean volumeOr dered By: Dr. Jauregui on 10-21-2022 Platelet mean volume (Bld) [Entitic vol] 8.9 fL 6.2-12.0 [facility] Culture, urineOrdered By: Joseph Jauregui on 10-21-2022 Bacteria identified Cx Nom (U) Presumptive E. coli [facility] Determination of erythrocyte mean corpuscular volume (MCV)Ordered By: Dr. Jauregui on 10-21-2022 MCV (RBC) [Entitic vol] 95.6 fL 80-94 [facility] Hematocrit Auto (Bld) [Volum e fraction]Ordered By: Dr. Jauregui on 10-21-2022 Hematocrit (Bld) [Volume fraction] 43.1 % 40-54 [facility] Ketones Test strip Ql (U)Ord ered By: Dr. Jauregui on 10-21-2022 Ketones Ql (U) Negative Negative [facility] Laboratory - Chemistry and C hemistry - challengeOrdered By: Dr. Jauregui on 10-21-2022 ALP [Catalytic activity/Vol] 84 U/L 45-117 [facility] ALT [Catalytic activity/Vol] 41 U/L 16-61 [facility] CO2 [Moles/Vol] 28.0 mmol/L 21.0-32.0 [facility] Globulin (S) [Mass/Vol] 4.2 g/dL 2.2-4.2 [facility] Lipase [Catalytic activity/Vol] 42 U/L 13-75 [facility] Comment on above: Please note:LIPASE r evised reference range effective 22. New Lipase methodology. Expected to produce lower values than the previous assay method. NEW Reference Range: 13 - 75 U/L Urea nitrogen/Creatinine [Mass ratio] 16.3 mg/mg 10-20 [facility] Laboratory - Hematology and Cell countsOrdered By: Dr. Jauregui on 10-21-2022 Erythrocyte distribution width (RBC) [Entitic vol] 45.7 fL 35.1-43.9 [facility] Erythrocyte distribution width (RBC) [Ratio] 13.0 % 11.6-14.6 [facility] Immature granulocytes/100 WBC (Bld) 1.200 % 0.0-0.9 [facility] Comment on above: IG% - Immature Granu locytes (promyelocytes, myelocytes and metamyelocytes) > 1% indicates that a LEFT SHIFT is Present. MCH (RBC) [Entitic mass] 31.9 pg 27.0-32.0 [facility] Nucleated RBC/100 WBC (Bld) [Ratio] 0 % 0-5 [facility] MCHC Auto (RBC) [Mass/Vol]Or dered By: Dr. Jauregui on 10-21-2022 MCHC (RBC) [Mass/Vol] 33.4 g/dL 32-36 [facility] Mucus LM Ql (Urine sed)Order ed By: Dr. Jauregui on 10-21-2022 Mucus Ql (Urine sed) 0 SEEN /hpf [facility] Nitrite Test strip Ql (U)Ord ered By: Dr. Jauregui on 10-21-2022 Nitrite Ql (U) Negative Negative [facility] No Panel InformationOrdered By: Dr. Jauregui on 10-21-2022 Estimated GFR (MDRD) Amer 90 mL/min >60 [facility] Comment on above: GFR Calc Estimated GFR (MDRD) Non-Af Amer 74 mL/min >60 [facility] Comment on above: Non- GFR Calc Platelets bldOrdered By: Dr. Jauregui on 10-21-2022 Platelets (Bld) [#/Vol] 339 10*3/uL 150-450 [facility] Protein Test strip Ql (U)Ord ered By: Dr. Jauregui on 10-21-2022 Protein Ql (U) 100 mg/dl Negative [facility] Serum or plasma albumin luis urement (mass/volume)Ordered By: Dr. Jauregui on 10-21-2022 Albumin [Mass/Vol] 3.0 g/dL 3.2-5.0 [facility] Serum or plasma albumin/glob ulin mass ratioOrdered By: Dr. Jauregui on 10-21-2022 Albumin/Globulin [Mass ratio] 0.7 {ratio} 0.9-2.4 [facility] Serum or plasma calcium luis urement (mass/volume)Ordered By: Dr. Jauregui on 10-21-2022 Calcium [Mass/Vol] 9.8 mg/dL 8.5-10.1 [facility] Serum or plasma creatinine m easurement (mass/volume)Ordered By: Dr. Jauregui on 10-21-2022 Creatinine [Mass/Vol] 1.04 mg/dL 0.70-1.30 [facility] Comment on above: The validity of the calculated GFR & GFRAA in patients over 70 years has not been determined. Clinical correlation is essential. Serum or plasma urea nitroge n measurement (mass/volume)Ordered By: Dr. Jauregui on 10-21-2022 Urea nitrogen [Mass/Vol] 17 mg/dL 7-18 [facility] Squamous epithelial cells de tection in urine sediment by light microscopyOrdered By: Dr. Jauregui on 10-21-2022 Epithelial cells.squamous LM Ql (Urine sed) 0-5 SEEN /hpf 0-5 [facility] Thin prep Papanicolaou smear with manual screeningOrdered By: Dr. Jauregui on 10-21-2022 Thin prep Papanicolaou smear with manual screening 20 U/L 15-37 [facility] Thin prep Papanicolaou smear with manual screening 8 5-15 [facility] Urine blood detectionOrdered By: Dr. Jauregui on 10-21-2022 RBC Ql (U) 50 /ul Negative [facility] RBC Ql (U) 0 SEEN /hpf 0-5 [facility] Urine clarityOrdered By: Dr. Jauregui on 10-21-2022 Clarity (U) Sl. Cloudy Clear [facility] Urine color determinationOrd ered By: Dr. Jauregui on 10-21-2022 Color (U) Yellow Yellow [facility] Urine glucose detectionOrder ed By: Dr. Jauregui on 10-21-2022 Glucose Ql (U) Normal mg/dl Normal [facility] Urine leukocyte esterase det ection by dipstickOrdered By: Dr. Jauregui on 10-21-2022 Leukocyte esterase Test strip Ql (U) 500 /ul Negative [facility] Urine pHOrdered By: Dr. Babs mckeon on 10-21-2022 pH (U) 6.0 [pH] 5.0 - 8.0 [facility] Urine sediment bacteria coun t by microscopy (number/high power field)Ordered By: Dr. Jauregui on 10-21-2022 Bacteria LM.HPF (Urine sed) [#/Area] 2 /[HPF] None Seen [facility] Urine specific gravity measu rementOrdered By: Dr. Jauregui on 10-21-2022 Specific gravity (U) [Rel density] 1.010 1.002-1.030 [facility] Urobilinogen Auto test strip Ql (U)Ordered By: Dr. Jauregui on 10-21-2022 Urobilinogen Ql (U) Normal mg/dl Normal [facility] No Panel InformationOrdered By: Андрей Cooley on 08-11-2022 Miscellaneous Test See comment [facility] Comment on above: TEST RESULT LIMITSCa rbamazepine(Tegretol), S 7.1 ug/mL 4.0-12.0 In conjunction with other antiepileptic drugs Therapeutic 4.0 - 8.0 Toxicity 9.0 - 12.0 Carbamazepine alone Therapeutic 8.0 - 12.0 Detection Limit = 2.0 <2.0 indicated None Detected Verified by repeat analysis TESTING PERFORMED AT [facility]. ORIGINAL REPORT ON FILE IN LAB CONTAINS ADDITIONAL TEST SITE INFORMATION. No Panel InformationOrdered By: Андрей Cooley on 07-12-2022 Miscellaneous Test See comment [facility] Comment on above: TEST RESULT LIMITSCarbamazepine(Tegretol),SCarbamazepine(Tegretol), S 6.3 ug/mL 4.0-12.0 In conjunction with other antiepileptic drugs Therapeutic 4.0 - 8.0 Toxicity 9.0 - 12.0 Carbamazepine alone Therapeutic 8.0 - 12.0 Detection Limit = 2.0 <2.0 indicated None Detected ____ TESTING PERFORMED AT [facility]. ORIGINAL REPORT ON FILE IN LAB CONTAINS ADDITIONAL TEST SITE INFORMATION. Basophil percentageOrdered B y: Андрей Cooley on 06-14-2022 Bilirubin [Mass/Vol] 0.20 mg/dL 0.20-1.00 [facility] Comment on above: For patients on eltr ombopag therapy, use of Dimension [place] TBIL is not recommended. Chloride [Moles/Vol] 104 mmol/L 98-107 [facility] Cholesterol [Mass/Vol] 139 mg/dL <200 [facility] Comment on above: <200 mg/dL Desirable 200-240 mg/dL Borderline >240 mg/dL High Risk Glucose [Mass/Vol] 76 mg/dL 74-106 [facility] Potassium [Moles/Vol] 3.9 mmol/L 3.5-5.1 [facility] Protein [Mass/Vol] 6.4 g/dL 6.4-8.2 [facility] Sodium [Moles/Vol] 139 mmol/L 136-145 [facility] Triglyceride [Mass/Vol] 111 mg/dL <199 [facility] Comment on above: The drugs N-Acetylcy steine and Metamizole may falsely depress this assay.Serum Triglycerides Reference Interval Normal <150 mg/dL Borderline high 150 - 199 mg/dL High 200 - 499 mg/dL Very High > or = 500 mg/dL WBC (Bld) [#/Vol] 5.5 10*3/uL 4.4-11.0 [facility] Blood erythrocytes count (nu mber/volume)Ordered By: Андрей Cooley on 06-14-2022 RBC (Bld) [#/Vol] 4.57 10*6/uL 4.6-6.2 [facility] Blood hemoglobin measurement (mass/volume)Ordered By: Андрей Cooley on 06-14-2022 Hemoglobin (Bld) [Mass/Vol] 15.0 g/dL 13.0-16.5 [facility] Blood platelet mean volumeOr dered By: Андрей Cooley on 06-14-2022 Platelet mean volume (Bld) [Entitic vol] 10.0 fL 6.2-12.0 [facility] Determination of erythrocyte mean corpuscular volume (MCV)Ordered By: Андрей Cooley on 06-14-2022 MCV (RBC) [Entitic vol] 100.4 fL 80-94 [facility] Hematocrit Auto (Bld) [Volum e fraction]Ordered By: Андрей Cooley on 06-14-2022 Hematocrit (Bld) [Volume fraction] 45.9 % 40-54 [facility] Laboratory - Chemistry and C hemistry - challengeOrdered By: Андрей Cooley on 06-14-2022 ALP [Catalytic activity/Vol] 68 U/L 45-117 [facility] ALT [Catalytic activity/Vol] 31 U/L 16-61 [facility] CO2 [Moles/Vol] 31.0 mmol/L 21.0-32.0 [facility] Globulin (S) [Mass/Vol] 3.0 g/dL 2.2-4.2 [facility] Urea nitrogen/Creatinine [Mass ratio] 22.5 mg/mg 10-20 [facility] Laboratory - Hematology and Cell countsOrdered By: Андрей Cooley on 06-14-2022 Erythrocyte distribution width (RBC)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 assayon 12-10-2021 INR Coag (Bld) [Relative time] 1.6 {INR} [facility] Work Phone: Laboratory - Chemistry and C hemistry - challengeon 12-10-2021 CO2 [Moles/Vol] 26.0 mmol/L 21.0-32.0 [facility] Work Phone: Urea nitrogen/Creatinine [Mass ratio] 21.5 mg/mg 10-20 [facility] Work Phone: Laboratory - Coagulationon 0 12-10-2021 PT Coag (PPP) [Time] 18.3 s 11.7-14.9 [facility] Work Phone: Laboratory - Hematology and Cell countson 12-10-2021 Erythrocyte distribution width (RBC) [Entitic vol] 95.8 fL 35.1-43.9 [facility] Work Phone: Erythrocyte distribution width (RBC) [Ratio] 29.7 % 11.6-14.6 [facility] Work Phone: [phone] MCH (RBC) [Entitic mass] 27.4 pg 27.0-32.0 [facility] Work Phone: MCHC Auto (RBC) [Mass/Vol]on 12-10-2021 MCHC (RBC) [Mass/Vol] 29.9 g/dL 32-36 [facility] Work Phone: No Panel Informationon 12-10 Estimated GFR (MDRD) Amer 97 mL/min >60 [facility] Work Phone: Comment on above: GFR Calc Estimated GFR (MDRD) Non-Af Amer 80 mL/min >60 [facility] Work Phone: [phone] Comment on above: Non- GFR Calc Platelets bldon 12-10-2021 Platelets (Bld) [#/Vol] 327 10*3/uL 150-450 [facility] Work Phone: [phone] Serum or plasma calcium luis urement (mass/volume)on 12-10-2021 Calcium [Mass/Vol] 9.0 mg/dL 8.5-10.1 [facility] Work Phone: [phone] Serum or plasma creatinine m easurement (mass/volume)on 12-10-2021 Creatinine [Mass/Vol] 0.98 mg/dL 0.70-1.30 [facility] Work Phone: Comment on above: The validity of the calculated GFR & GFRAA in patients over 70 years has not been determined. Clinical correlation is essential. Serum or plasma urea nitroge n measurement (mass/volume)on 12-10-2021 Urea nitrogen [Mass/Vol] 21 mg/dL 7-18 [facility] Work Phone: Thin prep Papanicolaou smear with manual screeningon 12-10-2021 Thin prep Papanicolaou smear with manual screening 6 5-15 [facility] Work Phone: Basophil percentageon 2021 Chloride [Moles/Vol] 107 mmol/L 98-107 [facility] Work Phone: Glucose [Mass/Vol] 89 mg/dL 74-106 [facility] Work Phone: [phone] Potassium [Moles/Vol] 4.3 mmol/L 3.5-5.1 [facility] Work Phone: [phone] Sodium [Moles/Vol] 140 mmol/L 136-145 [facility] Work Phone: WBC (Bld) [#/Vol] 6.1 10*3/uL 4.4-11.0 [facility] Work Phone: Blood erythrocytes count (nu mber/volume)on 12-08-2021 RBC (Bld) [#/Vol] 3.96 10*6/uL 4.6-6.2 [facility] Work Phone: Blood hemoglobin measurement (mass/volume)on 12-08-2021 Hemoglobin (Bld) [Mass/Vol] 10.6 g/dL 13.0-16.5 [facility] Work Phone: Blood platelet mean volumeon 12-08-2021 Platelet mean volume (Bld) [Entitic vol] 10.8 fL 6.2-12.0 [facility] Work Phone: Determination of erythrocyte mean corpuscular volume (MCV)on 12-08-2021 MCV (RBC) [Entitic vol] 91.2 fL 80-94 [facility] Work Phone: Hematocrit Auto (Bld) [Volum e fraction]on 12-08-2021 Hematocrit (Bld) [Volume fraction] 36.1 % 40-54 [facility] Work Phone: INR in Blood by Coagulation assayon 12-08-2021 INR Coag (Bld) [Relative time] 1.5 {INR} [facility] Work Phone: Laboratory - Chemistry and C hemistry - challengeon 12-08-2021 CO2 [Moles/Vol] 27.0 mmol/L 21.0-32.0 [facility] Work Phone: Urea nitrogen/Creatinine [Mass ratio] 23.1 mg/mg 10-20 [facility] Work Phone: Laboratory - Coagulationon 0 12-08-2021 PT Coag (PPP) [Time] 17.5 s 11.7-14.9 [facility] Work Phone: Laboratory - Hematology and Cell countson 12-08-2021 Erythrocyte distribution width (RBC) [Entitic vol] 97.8 fL 35.1-43.9 [facility] Work Phone: [phone] Erythrocyte distribution width (RBC) [Ratio] 30.4 % 11.6-14.6 [facility] Work Phone: MCH (RBC) [Entitic mass] 26.8 pg 27.0-32.0 [facility] Work Phone: MCHC Auto (RBC) [Mass/Vol]on 12-08-2021 MCHC (RBC) [Mass/Vol] 29.4 g/dL 32-36 [facility] Work Phone: No Panel Informationon 12-08 Carbamazepine (Tegretol) Level 7.9 ug/mL 4.0-12.0 [facility] Work Phone: Estimated GFR (MDRD) Amer 90 mL/min >60 [facility] Work Phone: Comment on above: GFR Calc Estimated GFR (MDRD) Non-Af Amer 75 mL/min >60 [facility] Work Phone: Comment on above: Non- GFR Calc Platelets bldon 12-08-2021 Platelets (Bld) [#/Vol] 295 10*3/uL 150-450 [facility] Work Phone: Serum or plasma calcium luis urement (mass/volume)on 12-08-2021 Calcium [Mass/Vol] 8.8 mg/dL 8.5-10.1 [facility] Work Phone: Serum or plasma creatinine m easurement (mass/volume)on 12-08-2021 Creatinine [Mass/Vol] 1.04 mg/dL 0.70-1.30 [facility] Work Phone: Comment on above: The validity of the calculated GFR & GFRAA in patients over 70 years has not been determined. Clinical correlation is essential. Serum or plasma urea nitroge n measurement (mass/volume)on 12-08-2021 Urea nitrogen [Mass/Vol] 24 mg/dL 7-18 [facility] Work Phone: Thin prep Papanicolaou smear with manual screeningon 12-08-2021 Thin prep Papanicolaou smear with manual screening 6 5-15 [facility] Work Phone: Absolute lymphocyte counton 12-06-2021 Lymphocytes Auto (Unsp spec) [#/Vol] 1.64 10*3/uL 0.83-4.51 [facility] Work Phone: Basophil percentageon 2021 Basophils/100 WBC (Bld) 1.6 % 0-1 [facility] Work Phone: Chloride [Moles/Vol] 106 mmol/L 98-107 [facility] Work Phone: Eosinophils/100 WBC (Bld) 4.0 % 0-5 [facility] Work Phone: Glucose [Mass/Vol] 75 mg/dL 74-106 [facility] Work Phone: Neutrophils (Bld) [#/Vol] 4.5 10*3/uL 2.0-7.7 [facility] Work Phone: Neutrophils/100 WBC (Bld) 64.0 % 47-70 [facility] Work Phone: Potassium [Moles/Vol] 4.6 mmol/L 3.5-5.1 [facility] Work Phone: Sodium [Moles/Vol] 138 mmol/L 136-145 [facility] Work Phone: WBC (Bld) [#/Vol] 7.0 10*3/uL 4.4-11.0 [facility] Work Phone: Blood erythrocytes count (nu mber/volume)on 12-06-2021 RBC (Bld) [#/Vol] 3.83 10*6/uL 4.6-6.2 [facility] Work Phone: Blood hemoglobin measurement (mass/volume)on 12-06-2021 Hemoglobin (Bld) [Mass/Vol] 10.2 g/dL 13.0-16.5 [facility] Work Phone: Blood lymphocytes/100 leukoc yteson 12-06-2021 Lymphocytes/100 WBC (Bld) 23.6 % 19-41 [facility] Work Phone: Blood monocytes/100 leukocyt eson 12-06-2021 Monocytes/100 WBC (Bld) 6.5 % 0-10 [facility] Work Phone: Blood platelet adequacy dete ction by light microscopyon 12-06-2021 Platelets LM Ql (Bld) ADEQUATE ADEQ [facility] Work Phone: Blood platelet mean volumeon 12-06-2021 Platelet mean volume (Bld) [Entitic vol] 10.7 fL 6.2-12.0 [facility] Work Phone: Blood poikilocytosis detecti on by light microscopyon 12-06-2021 Poikilocytosis LM Ql (Bld) 1+ [facility] Work Phone: Determination of erythrocyte mean corpuscular volume (MCV)on 12-06-2021 MCV (RBC) [Entitic vol] 92.7 fL 80-94 [facility] Work Phone: Hematocrit Auto (Bld) [Volum e fraction]on 12-06-2021 Hematocrit (Bld) [Volume fraction] 35.5 % 40-54 [facility] Work Phone: Hypochromatic red blood cell detectionon 12-06-2021 Hypochromia Ql (Bld) 1+ [facility] Work Phone: INR in Blood by Coagulation assayon 12-06-2021 INR Coag (Bld) [Relative time] 1.2 {INR} [facility] Work Phone: Laboratory - Chemistry and C hemistry - challengeon 12-06-2021 CO2 [Moles/Vol] 25.0 mmol/L 21.0-32.0 [facility] Work Phone: Urea nitrogen/Creatinine [Mass ratio] 17.1 mg/mg - [facility] Work Phone: Laboratory - Coagulationon 0 12-06-2021 PT Coag (PPP) [Time] 14.9 s 11.7-14.9 [facility] Work Phone: Laboratory - Hematology and Cell countson 12-06-2021 Anisocytosis Ql (Bld) 4+ [facility] Work Phone: Erythrocyte distribution width (RBC) [Entitic vol] 100.5 fL 35.1-43.9 [facility] Work Phone: [phone] Erythrocyte distribution width (RBC) [Ratio] 30.6 % 11.6-14.6 [facility] Work Phone: Immature granulocytes/100 WBC (Bld) 0.300 % 0.0-0.9 [facility] Work Phone: Comment on above: IG% - Immature Granu locytes (promyelocytes, myelocytes and metamyelocytes) > 1% indicates that a LEFT SHIFT is Present. MCH (RBC) [Entitic mass] 26.6 pg 27.0-32.0 [facility] Work Phone: Nucleated RBC/100 WBC (Bld) [Ratio] 0 % 0-5 [facility] Work Phone: MCHC Auto (RBC) [Mass/Vol]on 12-06-2021 MCHC (RBC) [Mass/Vol] 28.7 g/dL 32-36 [facility] Work Phone: Macrocytes detectionon 12-06 Macrocytes Ql (Bld) 1+ [facility] Work Phone: No Panel Informationon 12-06 Estimated GFR (MDRD) Amer 89 mL/min >60 [facility] Work Phone: Comment on above: GFR Calc Estimated GFR (MDRD) Non-Af Amer 74 mL/min >60 [facility] Work Phone: Comment on above: Non- GFR Calc Ovalocyte detectionon 2021 Ovalocytes LM Ql (Bld) 2+ [facility] Work Phone: Platelets bldon 12-06-2021 Platelets (Bld) [#/Vol] 265 10*3/uL 150-450 [facility] Work Phone: Serum or plasma calcium luis urement (mass/volume)on 12-06-2021 Calcium [Mass/Vol] 8.9 mg/dL 8.5-10.1 [facility] Work Phone: Serum or plasma creatinine m easurement (mass/volume)on 12-06-2021 Creatinine [Mass/Vol] 1.05 mg/dL 0.70-1.30 [facility] Work Phone: Comment on above: The validity of the calculated GFR & GFRAA in patients over 70 years has not been determined. Clinical correlation is essential. Serum or plasma urea nitroge n measurement (mass/volume)on 12-06-2021 Urea nitrogen [Mass/Vol] 18 mg/dL 7-18 [facility] Work Phone: Teardrop cell detectionon Dacrocytes LM Ql (Bld) 1+ [facility] Work Phone: Thin prep Papanicolaou smear with manual screeningon 12-06-2021 Thin prep Papanicolaou smear with manual screening 1+ [facility] Work Phone: Thin prep Papanicolaou smear with manual screening 7 5-15 [facility] Work Phone: Basophil percentageon 2021 Basophil percentage 0-5 SEEN /hpf 0-5 [facility] Work Phone: Bilirubin Test strip Ql (U)o n 12-04-2021 Bilirubin Ql (U) Negative Negative [facility] Work Phone: Ketones Test strip Ql (U)on 12-04-2021 Ketones Ql (U) Negative Negative [facility] Work Phone: Mucus LM Ql (Urine sed)on Mucus Ql (Urine sed) 0 SEEN /hpf [facility] Work Phone: Nitrite Test strip Ql (U)on 12-04-2021 Nitrite Ql (U) Negative Negative [facility] Work Phone: Protein Test strip Ql (U)on 12-04-2021 Protein Ql (U) Negative Negative [facility] Work Phone: Squamous epithelial cells de tection in urine sediment by light microscopyon 12-04-2021 Epithelial cells.squamous LM Ql (Urine sed) 0-5 SEEN /hpf 0-5 [facility] Work Phone: Urine blood detectionon 11-17 RBC Ql (U) 25 /ul Negative [facility] Work Phone: RBC Ql (U) 0 SEEN /hpf 0-5 [facility] Work Phone: Urine clarityon 12-04-2021 Clarity (U) Cloudy Clear [facility] Work Phone: Urine color determinationon 12-04-2021 Color (U) Yellow Yellow [facility] Work Phone: [phone] Urine glucose detectionon Glucose Ql (U) Normal mg/dl Normal [facility] Work Phone: Urine leukocyte esterase det ection by dipstickon 12-04-2021 Leukocyte esterase Test strip Ql (U) 500 /ul Negative [facility] Work Phone: Urine pHon 12-04-2021 pH (U) 6.0 [pH] 5.0 - 8.0 [facility] Work Phone: Urine sediment bacteria coun t by microscopy (number/high power field)on 12-04-2021 Bacteria LM.HPF (Urine sed) [#/Area] 4 /[HPF] None Seen [facility] Work Phone: Urine specific gravity measu rementon 12-04-2021 Specific gravity (U) [Rel density] 1.015 1.002-1.030 [facility] Work Phone: Urobilinogen Auto test strip Ql (U)on 12-04-2021 Urobilinogen Ql (U) Normal mg/dl Normal [facility] Work Phone: Basophil percentageon 2021 Chloride [Moles/Vol] 105 mmol/L 98-[address] [facility] Work Phone: Glucose [Mass/Vol] 96 mg/dL 74-106 [facility] Work Phone: Potassium [Moles/Vol] 3.9 mmol/L 3.5-5.1 [facility] Work Phone: [phone] Sodium [Moles/Vol] 138 mmol/L 136-145 [facility] Work Phone: [phone] WBC (Bld) [#/Vol] 7.5 10*3/uL 4.4-11.0 [facility] Work Phone: [phone] Blood erythrocytes count (nu mber/volume)on 12-01-2021 RBC (Bld) [#/Vol] 3.41 10*6/uL 4.6-6.2 [facility] Work Phone: [phone] Blood hemoglobin measurement (mass/volume)on 12-01-2021 Hemoglobin (Bld) [Mass/Vol] 8.3 g/dL 13.0-16.5 [facility] Work Phone: [phone] Blood platelet mean volumeon 12-01-2021 Platelet mean volume (Bld) [Entitic vol] 11.1 fL 6.2-12.0 [facility] Work Phone: Determination of erythrocyte mean corpuscular volume (MCV)on 12-01-2021 MCV (RBC) [Entitic vol] 86.2 fL 80-94 [facility] Work Phone: [phone] Hematocrit Auto (Bld) [Volum e fraction]on 12-01-2021 Hematocrit (Bld) [Volume fraction] 29.4 % 40-54 [facility] Work Phone: INR in Blood by Coagulation assayon 12-01-2021 INR Coag (Bld) [Relative time] 1.4 {INR} [facility] Work Phone: Laboratory - Chemistry and C hemistry - challengeon 12-01-2021 CO2 [Moles/Vol] 26.0 mmol/L 21.0-32.0 [facility] Work Phone: Urea nitrogen/Creatinine [Mass ratio] 14.6 mg/mg 10-20 [facility] Work Phone: Laboratory - Coagulationon 0 12-01-2021 PT Coag (PPP) [Time] 16.9 s 11.7-14.9 [facility] Work Phone: [phone] Laboratory - Hematology and Cell countson 12-01-2021 Erythrocyte distribution width (RBC) [Entitic vol] 68.4 fL 35.1-43.9 [facility] Work Phone: [phone] Erythrocyte distribution width (RBC) [Ratio] 26.7 % 11.6-14.6 [facility] Work Phone: MCH (RBC) [Entitic mass] 24.3 pg 27.0-32.0 [facility] Work Phone: [phone] MCHC Auto (RBC) [Mass/Vol]on 12-01-2021 MCHC (RBC) [Mass/Vol] 28.2 g/dL 32-36 [facility] Work Phone: No Panel Informationon 12-01 Estimated GFR (MDRD) Amer 99 mL/min >60 [facility] Work Phone: Comment on above: GFR Calc Estimated GFR (MDRD) Non-Af Amer 82 mL/min >60 [facility] Work Phone: Comment on above: Non- GFR Calc Platelets bldon 12-01-2021 Platelets (Bld) [#/Vol] 307 10*3/uL 150-450 [facility] Work Phone: [phone] Serum or plasma calcium luis urement (mass/volume)on 12-01-2021 Calcium [Mass/Vol] 9.5 mg/dL 8.5-10.1 [facility] Work Phone: [phone] Serum or plasma creatinine m easurement (mass/volume)on 12-01-2021 Creatinine [Mass/Vol] 0.96 mg/dL 0.70-1.30 [facility] Work Phone: Comment on above: The validity of the calculated GFR & GFRAA in patients over 70 years has not been determined. Clinical correlation is essential. Serum or plasma urea nitroge n measurement (mass/volume)on 12-01-2021 Urea nitrogen [Mass/Vol] 14 mg/dL 7-18 [facility] Work Phone: Thin prep Papanicolaou smear with manual screeningon 12-01-2021 Thin prep Papanicolaou smear with manual screening 7 5-15 [facility] Work Phone: Absolute lymphocyte counton 11-30-2021 Lymphocytes Auto (Unsp spec) [#/Vol] 1.13 10*3/uL 0.83-4.51 [facility] Work Phone: Basophil percentageon 2021 Basophil percentage 3.4 mg/dL 2.5-4.9 [facility] Work Phone: Basophils/100 WBC (Bld) 1.5 % 0-1 [facility] Work Phone: Chloride [Moles/Vol] 107 mmol/L 98-107 [facility] Work Phone: Eosinophils/100 WBC (Bld) 3.5 % 0-5 [facility] Work Phone: Glucose [Mass/Vol] 90 mg/dL 74-106 [facility] Work Phone: Neutrophils (Bld) [#/Vol] 6.9 10*3/uL 2.0-7.7 [facility] Work Phone: [phone] Neutrophils/100 WBC (Bld) 74.4 % 47-70 [facility] Work Phone: Potassium [Moles/Vol] 3.4 mmol/L 3.5-5.1 [facility] Work Phone: Sodium [Moles/Vol] 140 mmol/L 136-145 [facility] Work Phone: WBC (Bld) [#/Vol] 9.3 10*3/uL 4.4-11.0 [facility] Work Phone: Blood erythrocytes count (nu mber/volume)on 11-30-2021 RBC (Bld) [#/Vol] 3.21 10*6/uL 4.6-6.2 [facility] Work Phone: Blood hemoglobin measurement (mass/volume)on 11-30-2021 Hemoglobin (Bld) [Mass/Vol] 7.8 g/dL 13.0-16.5 [facility] Work Phone: Blood lymphocytes/100 leukoc yteson 11-30-2021 Lymphocytes/100 WBC (Bld) 12.2 % 19-41 [facility] Work Phone: [phone] Blood monocytes/100 leukocyt eson 11-30-2021 Monocytes/100 WBC (Bld) 7.0 % 0-10 [facility] Work Phone: Blood platelet mean volumeon 11-30-2021 Platelet mean volume (Bld) [Entitic vol] 10.8 fL 6.2-12.0 [facility] Work Phone: Blood polychromasia detectio n by light microscopyon 11-30-2021 Polychromasia LM Ql (Bld) 2+ [facility] Work Phone: Determination of erythrocyte mean corpuscular volume (MCV)on 11-30-2021 MCV (RBC) [Entitic vol] 83.8 fL 80-94 [facility] Work Phone: Hematocrit Auto (Bld) [Volum e fraction]on 11-30-2021 Hematocrit (Bld) [Volume fraction] 26.9 % 40-54 [facility] Work Phone: INR in Blood by Coagulation assayon 11-30-2021 INR Coag (Bld) [Relative time] 1.4 {INR} [facility] Work Phone: Laboratory - Chemistry and C hemistry - challengeon 11-30-2021 CO2 [Moles/Vol] 26.0 mmol/L 21.0-32.0 [facility] Work Phone: Urea nitrogen/Creatinine [Mass ratio] 12.0 mg/mg 10-20 [facility] Work Phone: Laboratory - Coagulationon 0 11-30-2021 PT Coag (PPP) [Time] 17.1 s 11.7-14.9 [facility] Work Phone: [phone] Laboratory - Hematology and Cell countson 11-30-2021 Anisocytosis Ql (Bld) 2+ [facility] Work Phone: [phone] Erythrocyte distribution width (RBC) [Entitic vol] 64.9 fL 35.1-43.9 [facility] Work Phone: [phone] Erythrocyte distribution width (RBC) [Ratio] 24.2 % 11.6-14.6 [facility] Work Phone: [phone] Immature granulocytes/100 WBC (Bld) 1.400 % 0.0-0.9 [facility] Work Phone: [phone] Comment on above: IG% - Immature Granu locytes (promyelocytes, myelocytes and metamyelocytes) > 1% indicates that a LEFT SHIFT is Present. MCH (RBC) [Entitic mass] 24.3 pg 27.0-32.0 [facility] Work Phone: [phone] Nucleated RBC/100 WBC (Bld) [Ratio] 2.7 % 0-5 [facility] Work Phone: [phone] MCHC Auto (RBC) [Mass/Vol]on 11-30-2021 MCHC (RBC) [Mass/Vol] 29.0 g/dL 32-36 [facility] Work Phone: [phone] No Panel Informationon 11-30 Estimated Creatinine Clearance Calc 70.99 ml/min [facility] Work Phone: [phone] Estimated GFR (MDRD) Amer 105 mL/min >60 [facility] Work Phone: [phone] Comment on above: GFR Calc Estimated GFR (MDRD) Non-Af Amer 87 mL/min >60 [facility] Work Phone: [phone] Comment on above: Non- GFR Calc Anti-Gliadin IgA Antibody 3 units 0-19 [facility] Work Phone: [phone] Comment on above: Negative 0 - 19 Weak Positive 20 - 30 Moderate to Strong Positive >30 Anti-Gliadin IgG Antibody 1 units 0-19 [facility] Work Phone: Comment on above: Negative 0 - 19 Weak Positive 20 - 30 Moderate to Strong Positive >30 Endomysial IgA Antibody Negative Negative [facility] Work Phone: Tissue Transglutaminase IgG Ab <2 U/mL 0-5 [facility] Work Phone: Comment on above: Negative 0 - 5 Weak Positive 6 - 9 Positive >9 Platelets bldon 11-30-2021 Platelets (Bld) [#/Vol] 305 10*3/uL 150-450 [facility] Work Phone: Serum IgA measurement (units /volume)on 11-30-2021 IgA Qn (S) 128 mg/dL 61-437 [facility] Work Phone: Comment on above: Performed at: [place] [id number] Director: Дмитрий Tran PhD, Phone: [phone] Serum or plasma calcium luis urement (mass/volume)on 11-30-2021 Calcium [Mass/Vol] 8.9 mg/dL 8.5-10.1 [facility] Work Phone: Serum or plasma creatinine m easurement (mass/volume)on 11-30-2021 Creatinine [Mass/Vol] 0.91 mg/dL 0.70-1.30 [facility] Work Phone: Comment on above: The validity of the calculated GFR & GFRAA in patients over 70 years has not been determined. Clinical correlation is essential. Serum or plasma urea nitroge n measurement (mass/volume)on 11-30-2021 Urea nitrogen [Mass/Vol] 11 mg/dL 7-18 [facility] Work Phone: Serum tissue transglutaminas e IgA antibody assay (units/volume)on 11-30-2021 tTG IgA Qn (S) <2 U/mL 0-3 [facility] Work Phone: Comment on above: Negative 0 - 3 Weak Positive 4 - 10 Positive >10 Tissue Transglutaminase (tTG) has been identified as the endomysial antigen. Studies have demonstr- ated that endomysial IgA antibodies have over 99% specificity for gluten sensitive enteropathy. Thin prep Papanicolaou smear with manual screeningon 11-30-2021 Thin prep Papanicolaou smear with manual screening 7 5-15 [facility] Work Phone: Blood platelet adequacy dete ction by light microscopyon 11-29-2021 Platelets LM Ql (Bld) ADEQUATE ADEQ [facility] Work Phone: Hypochromatic red blood cell detectionon 11-29-2021 Hypochromia Ql (Bld) 1+ [facility] Work Phone: Serum or plasma ferritin arlyn surement (mass/volume)on 11-29-2021 Ferritin [Mass/Vol] 157 ng/mL 26-388 [facility] Work Phone: Blood manual differential co mment interpretation (narrative result)on 11-28-2021 Manual differential comment Ghassan (Bld) [Interp] SCANNED [facility] Work Phone: Laboratory - Chemistry and C hemistry - challengeon 11-28-2021 Magnesium [Mass/Vol] 2.0 mg/dL 1.6-2.6 [facility] Work Phone: Macrocytes detectionon 11-28 Macrocytes Ql (Bld) RARE [facility] Work Phone: Ovalocyte detectionon 2021 Ovalocytes LM Ql (Bld) 1+ [facility] Work Phone: Thin prep Papanicolaou smear with manual screeningon 11-28-2021 Thin prep Papanicolaou smear with manual screening 1+ [facility] Work Phone: Laboratory - Chemistry and C hemistry - challengeon 11-26-2021 Cobalamin (Vitamin B12) [Mass/Vol] 403 pg/mL 211-911 [facility] Work Phone: No Panel Informationon 11-26 Troponin I High Sensitivity 13 pg/mL 3.0-78.0 [facility] Work Phone: Comment on above: Please Note: [place] t Units and Gender Specific Reference Ranges. For more information see Policy Stat Procedure [place] High Sensitivity Troponin (TNIH) and attachments. Absolute lymphocyte counton 11-25-2021 Lymphocytes Auto (Unsp spec) [#/Vol] 0.81 10*3/uL 0.83-4.51 [facility] Work [phone] Basophil percentageon 2021 Basophil percentage 0 SEEN /hpf 0-5 [facility] Work Phone: Basophils/100 WBC (Bld) 0.7 % 0-1 [facility] Work Phone: Eosinophils/100 WBC (Bld) 0.1 % 0-5 [facility] Work Phone: Neutrophils (Bld) [#/Vol] 5.8 10*3/uL 2.0-7.7 [facility] Work Phone: Neutrophils/100 WBC (Bld) 80.9 % 47-70 [facility] Work Phone: WBC (Bld) [#/Vol] 7.1 10*3/uL 4.4-11.0 [facility] Work Phone: Bilirubin [Mass/Vol] 0.20 mg/dL 0.20-1.00 [facility] Work Phone: Comment on above: For patients on eltr ombopag therapy, use of Dimension [place] TBIL is not recommended. Chloride [Moles/Vol] 101 mmol/L 98-107 [facility] Work Phone: Glucose [Mass/Vol] 113 mg/dL 74-106 [facility] Work Phone: Comment on above: Fasting Glucose resu lt from 100 to 125 mg/dL suggests IMPAIRED HOMEOSTASIS per A.D.A. criteria. Potassium [Moles/Vol] 4.2 mmol/L 3.5-5.1 [facility] Work Phone: Protein [Mass/Vol] 6.8 g/dL 6.4-8.2 [facility] Work Phone: [phone] Sodium [Moles/Vol] 133 mmol/L 136-145 [facility] Work Phone: [phone] Bilirubin Test strip Ql (U)o n 11-25-2021 Bilirubin Ql (U) Negative Negative [facility] Work Phone: [phone] Blood erythrocytes count (nu mber/volume)on 11-25-2021 RBC (Bld) [#/Vol] 2.36 10*6/uL 4.6-6.2 [facility] Work Phone: [phone] Blood hemoglobin measurement (mass/volume)on 11-25-2021 Hemoglobin (Bld) [Mass/Vol] 4.4 g/dL 13.0-16.5 [facility] Work Phone: Comment on above: CRITICAL VALUE VERIF IED. CALLED TO [id number]/09/22 1830 Kateryna Horn.RESULTS READ BACK BY SAME . Blood lymphocytes/100 leukoc yteson 11-25-2021 Lymphocytes/100 WBC (Bld) 11.4 % 19-41 [facility] Work Phone: [phone] Blood manual differential co mment interpretation (narrative result)on 11-25-2021 Manual differential comment Ghassan (Bld) [Interp] SCANNED [facility] Work Phone: Comment on above: ANEMIA NOTED Blood monocytes/100 leukocyt eson 11-25-2021 Monocytes/100 WBC (Bld) 6.3 % 0-10 [facility] Work Phone: [phone] Blood platelet mean volumeon 11-25-2021 Platelet mean volume (Bld) [Entitic vol] 10.2 fL 6.2-12.0 [facility] Work Phone: [phone] Determination of erythrocyte mean corpuscular volume (MCV)on 11-25-2021 MCV (RBC) [Entitic vol] 71.6 fL 80-94 [facility] Work Phone: [phone] Hematocrit Auto (Bld) [Volum e fraction]on 11-25-2021 Hematocrit (Bld) [Volume fraction] 16.9 % 40-54 [facility] Work Phone: [phone] Hemoglobin in reticulocytes (mass per reticulocyte)on 11-25-2021 Hemoglobin (Reticulocytes) [Entitic mass] 15.0 pg 30-35 [facility] Work Phone: [phone] Hypochromatic red blood cell detectionon 11-25-2021 [facility]ochrom[facility] Ql (Bld) [facility]: [phone] INR in Blood by Coagulation assayon 11-25-2021 INR Coag (Bld) [Relative time] 5.4 {INR} [facility] Work Phone: [phone] Comment on above: CRITICAL VALUE VERIF IED. CALLED TO [id number] Kateryna Horn.RESULTS READ BACK BY SAME . Iron measurement (mass/mass) on 11-25-2021 Iron (Unsp spec) [Mass/Mass] 10 ug/dL 65-175 [facility] Work Phone: [phone] Ketones Test strip Ql (U)on 11-25-2021 Ketones Ql (U) Negative Negative [facility] Work Phone: Laboratory - Chemistry and C hemistry - challengeon 11-25-2021 ALP [Catalytic activity/Vol] 54 U/L 45-117 [facility] Work Phone: [phone] ALT [Catalytic activity/Vol] 20 U/L 16-61 [facility] Work Phone: [phone] CO2 [Moles/Vol] 23.0 mmol/L 21.0-32.0 [facility] Work Phone: [phone] Globulin (S) [Mass/Vol] 3.1 g/dL 2.2-4.2 [facility] Work Phone: [phone] Urea nitrogen/Creatinine [Mass ratio] 16.7 mg/mg 10-20 [facility] Work Phone: [phone] Laboratory - Coagulationon 0 11-25-2021 PT Coag (PPP) [Time] 49.2 s 11.7-14.9 [facility] Work Phone: Laboratory - Hematology and Cell countson 11-25-2021 Erythrocyte distribution width (RBC) [Entitic vol] 48.7 fL 35.1-43.9 [facility] Work Phone: [phone] Erythrocyte distribution width (RBC) [Ratio] 18.6 % 11.6-14.6 [facility] Work Phone: [phone] Immature granulocytes/100 WBC (Bld) 0.600 % 0.0-0.9 [facility] Work Phone: [phone] Comment on above: IG% - Immature Granu locytes (promyelocytes, myelocytes and metamyelocytes) > 1% indicates that a LEFT SHIFT is Present. MCH (RBC) [Entitic mass] 18.6 pg 27.0-32.0 [facility] Work Phone: [phone] Nucleated RBC/100 WBC (Bld) [Ratio] 0.6 % 0-5 [facility] Work Phone: [phone] Lower GI hemoglobin IA Ql (S tl)on 11-25-2021 Stool Occult Blood (LACI) Positive [facility] Work Phone: [phone] MCHC Auto (RBC) [Mass/Vol]on 11-25-2021 MCHC (RBC) [Mass/Vol] 26.0 g/dL 32-36 [facility] Work Phone: [phone] Mucus LM Ql (Urine sed)on Mucus Ql (Urine sed) 0 SEEN /hpf [facility] Work Phone: [phone] Nitrite Test strip Ql (U)on 11-25-2021 Nitrite Ql (U) Negative Negative [facility] Work Phone: [phone] No Panel Informationon 11-25 Immature Reticulocyte Fraction 25.00 % 3.00-15.90 [facility] Work Phone: [phone] Reticulocyte Count 2.10 % 0.5-1.5 [facility] Work Phone: Estimated Creatinine Clearance Calc 44.86 ml/min [facility] Work Phone: Estimated GFR (MDRD) Amer 62 mL/min >60 [facility] Work Phone: [phone] Comment on above: GFR Calc Estimated GFR (MDRD) Non-Af Amer 51 mL/min >60 [facility] Work Phone: [phone] Comment on above: Non- GFR Calc Total Iron Binding Capacity 466 ug/dL 250-450 [facility] Work Phone: Platelets bldon 11-25-2021 Platelets (Bld) [#/Vol] 398 10*3/uL 150-450 [facility] Work Phone: [phone] Protein Test strip Ql (U)on 11-25-2021 Protein Ql (U) Negative Negative [facility] Work Phone: Review by pathologiston Pathologist review Ghassan (Unsp spec) [Interp] Lena gardner [facility] Work Phone: [phone] Pathologist review Ghassan (Unsp spec) [Interp] Reviewed [facility] Work Phone: [phone] Comment on above: Previous reported re sult: Lena gardner Edited by: JF on 11/26/21:1239Severe Microcytic anemia.Clinical correlation necessary.Sebastian Gonzalez M.D. 11/26/21 AMENDED REPORT 11/26/21 1239 PATH REV previously reported as: Lena gardner Serum or plasma albumin luis urement (mass/volume)on 11-25-2021 Albumin [Mass/Vol] 3.7 g/dL 3.2-5.0 [facility] Work Phone: [phone] Serum or plasma albumin/glob ulin mass ratioon 11-25-2021 Albumin/Globulin [Mass ratio] 1.2 {ratio} 0.9-2.4 [facility] Work Phone: [phone] Serum or plasma calcium luis urement (mass/volume)on 11-25-2021 Calcium [Mass/Vol] 8.2 mg/dL 8.5-10.1 [facility] Work Phone: Serum or plasma creatinine m easurement (mass/volume)on 11-25-2021 Creatinine [Mass/Vol] 1.44 mg/dL 0.70-1.30 [facility] Work Phone: Comment on above: The validity of the calculated GFR & GFRAA in patients over 70 years has not been determined. Clinical correlation is essential. Serum or plasma ferritin arlyn surement (mass/volume)on 11-25-2021 Ferritin [Mass/Vol] 5 ng/mL 26-[address] [facility] Work Phone: Serum or plasma folate measu rement (mass/volume)on 11-25-2021 Folate [Mass/Vol] 12.90 ng/mL 3.1-55.4 [facility] Work Phone: Serum or plasma iron saturat ion measurement (mass fraction)on 11-25-2021 Iron saturation [Mass fraction] 2.1 % 15.0-55.0 [facility] Work Phone: Serum or plasma urea nitroge n measurement (mass/volume)on 11-25-2021 Urea nitrogen [Mass/Vol] 24 mg/dL 7-18 [facility] Work Phone: [phone] Squamous epithelial cells de tection in urine sediment by light microscopyon 11-25-2021 Epithelial cells.squamous LM Ql (Urine sed) 0 SEEN /hpf 0-5 [facility] Work Phone: Thin prep Papanicolaou smear with manual screeningon 11-25-2021 Thin prep Papanicolaou smear with manual screening 10 U/L 15-37 [facility] Work Phone: [phone] Thin prep Papanicolaou smear with manual screening 9 5-15 [facility] Work Phone: [phone] Urine blood detectionon RBC Ql (U) 50 /ul Negative [facility] Work Phone: [phone] RBC Ql (U) 5-10 SEEN /hpf 0-5 [facility] Work Phone: [phone] Urine clarityon 11-25-2021 Clarity (U) Clear Clear [facility] Work Phone: Urine color determinationon 11-25-2021 Color (U) Straw Yellow [facility] Work Phone: Urine glucose detectionon Glucose Ql (U) Normal mg/dl Normal [facility] Work Phone: Urine leukocyte esterase det ection by dipstickon 11-25-2021 Leukocyte esterase Test strip Ql (U) Negative Negative [facility] Work Phone: Urine pHon 11-25-2021 pH (U) 7.0 [pH] 5.0 - 8.0 [facility] Work Phone: Urine sediment bacteria coun t by microscopy (number/high power field)on 11-25-2021 Bacteria LM.HPF (Urine sed) [#/Area] RARE /hpf None Seen [facility] Work Phone: Urine specific gravity measu rementon 11-25-2021 Specific gravity (U) [Rel density] 1.010 1.002-1.030 [facility] Work Phone: Urobilinogen Auto test strip Ql (U)on 11-25-2021 Urobilinogen Ql (U) Normal mg/dl Normal [facility] Work Phone: INR in Blood by Coagulation assayon 11-11-2021 INR Coag (Bld) [Relative time] 1.2 {INR} [facility] Laboratory - Coagulationon 0 11-11-2021 PT Coag (PPP) [Time] 15.1 s 11.7-14.9 [facility] Work Phone: No Panel Informationon 11-08 DLCO (ml/min/mmHg) 7.15 ml/min/mmHg [facility] DLCO/VA (ml/min/mmHg/L) 1.63 ml/min/mmHg/L [facility] VNR18-30% PRE (L/S) 0.30 L/S [facility] FEV1 PRE (L) 0.85 L [facility] FEV1/FVC PRE (%) 0.38 % [facility] FVC PRE (L) 2.23 L [facility] PEF PRE (L/S) 1.51 L/S [facility] VA (L) 4.38 L [facility] CNCOon 10-18-2021 CNCO Letter Text Letter Text Normal [facility] INR FINGERSTICK B/Oon 2021 INR Coag (Bld) [Relative time] 2.2 EXT [facility] Quality Check No [facility] Absolute lymphocyte counton 10-08-2021 Lymphocytes Auto (Unsp spec) [#/Vol] 1.26 10*3/uL 0.83-4.51 [facility] Work Phone: Basophil percentageon 2021 Basophil percentage 10-25 SEEN /hpf 0-5 [facility] Work Phone: Basophils/100 WBC (Bld) 1.3 % 0-1 [facility] Work Phone: Bilirubin [Mass/Vol] 0.30 mg/dL 0.20-1.00 [facility] Work Phone: Comment on above: For patients on eltr ombopag therapy, use of Dimension [place] TBIL is not recommended. Chloride [Moles/Vol] 105 mmol/L 98-107 [facility] Work Phone: Eosinophils/100 WBC (Bld) 0.5 % 0-5 [facility] Work Phone: Glucose [Mass/Vol] 99 mg/dL 74-106 [facility] Work Phone: Neutrophils (Bld) [#/Vol] 4.3 10*3/uL 2.0-7.7 [facility] Work Phone: Neutrophils/100 WBC (Bld) 70.4 % 47-70 [facility] Work Phone: Potassium [Moles/Vol] 3.7 mmol/L 3.5-5.1 [facility] Work Phone: Protein [Mass/Vol] 7.5 g/dL 6.4-8.2 [facility] Work Phone: Sodium [Moles/Vol] 138 mmol/L 136-145 [facility] Work Phone: WBC (Bld) [#/Vol] 6.1 10*3/uL 4.4-11.0 [facility] Work Phone: Bilirubin Test strip Ql (U)o n 10-08-2021 Bilirubin Ql (U) Negative Negative [facility] Work Phone: Blood erythrocytes count (nu mber/volume)on 10-08-2021 RBC (Bld) [#/Vol] 3.87 10*6/uL 4.6-6.2 [facility] Work Phone: Blood hemoglobin measurement (mass/volume)on 10-08-2021 Hemoglobin (Bld) [Mass/Vol] 8.3 g/dL 13.0-16.5 [facility] Work Phone: Blood lymphocytes/100 leukoc yteson 10-08-2021 Lymphocytes/100 WBC (Bld) 20.5 % 19-41 [facility] Work Phone: [phone] Blood monocytes/100 leukocyt eson 10-08-2021 Monocytes/100 WBC (Bld) 7.0 % 0-10 [facility] Work Phone: Blood platelet mean volumeon 10-08-2021 Platelet mean volume (Bld) [Entitic vol] 10.1 fL 6.2-12.0 [facility] Work Phone: Determination of erythrocyte mean corpuscular volume (MCV)on 10-08-2021 MCV (RBC) [Entitic vol] 74.7 fL 80-94 [facility] Work Phone: Hematocrit Auto (Bld) [Volum e fraction]on 10-08-2021 Hematocrit (Bld) [Volume fraction] 28.9 % 40-54 [facility] Work Phone: [phone] INR in Blood by Coagulation assayon 10-08-2021 INR Coag (Bld) [Relative time] 2.4 {INR} [facility] Work Phone: Ketones Test strip Ql (U)on 10-08-2021 Ketones Ql (U) Negative Negative [facility] Work Phone: [phone] Laboratory - Chemistry and C hemistry - challengeon 10-08-2021 ALP [Catalytic activity/Vol] 74 U/L 45-117 [facility] Work Phone: [phone] ALT [Catalytic activity/Vol] 21 U/L 16-61 [facility] Work Phone: [phone] CO2 [Moles/Vol] 30.0 mmol/L 21.0-32.0 [facility] Work Phone: [phone] Globulin (S) [Mass/Vol] 3.7 g/dL 2.2-4.2 [facility] Work Phone: [phone] Lipase [Catalytic activity/Vol] 93 U/L 73-393 [facility] Work Phone: [phone] Urea nitrogen/Creatinine [Mass ratio] 20.2 mg/mg 10-20 [facility] Work Phone: Laboratory - Coagulationon 0 10-08-2021 PT Coag (PPP) [Time] 25.7 s 11.7-14.9 [facility] Work Phone: Laboratory - Hematology and Cell countson 10-08-2021 Erythrocyte distribution width (RBC) [Entitic vol] 50.4 fL 35.1-43.9 [facility] Work Phone: [phone] Erythrocyte distribution width (RBC) [Ratio] 18.6 % 11.6-14.6 [facility] Work Phone: [phone] Immature granulocytes/100 WBC (Bld) 0.300 % 0.0-0.9 [facility] Work Phone: [phone] Comment on above: IG% - Immature Granu locytes (promyelocytes, myelocytes and metamyelocytes) > 1% indicates that a LEFT SHIFT is Present. MCH (RBC) [Entitic mass] 21.4 pg 27.0-32.0 [facility] Work Phone: Nucleated RBC/100 WBC (Bld) [Ratio] 0 % 0-5 [facility] Work Phone: MCHC Auto (RBC) [Mass/Vol]on 10-08-2021 MCHC (RBC) [Mass/Vol] 28.7 g/dL 32-36 [facility] Work Phone: Mucus LM Ql (Urine sed)on Mucus Ql (Urine sed) 0 SEEN /hpf [facility] Work Phone: Nitrite Test strip Ql (U)on 10-08-2021 Nitrite Ql (U) Positive Negative [facility] Work Phone: No Panel Informationon 10-08 Estimated Creatinine Clearance Calc 68.72 ml/min [facility] Work Phone: Estimated GFR (MDRD) Amer 101 mL/min >60 [facility] Work Phone: Comment on above: GFR Calc Estimated GFR (MDRD) Non-Af Amer 84 mL/min >60 [facility] Work Phone: Comment on above: Non- GFR Calc Platelets bldon 10-08-2021 Platelets (Bld) [#/Vol] 349 10*3/uL 150-450 [facility] Work Phone: Protein Test strip Ql (U)on 10-08-2021 Protein Ql (U) 100 mg/dl Negative [facility] Work Phone: [phone] Serum or plasma albumin luis urement (mass/volume)on 10-08-2021 Albumin [Mass/Vol] 3.8 g/dL 3.2-5.0 [facility] Work Phone: [phone] Serum or plasma albumin/glob ulin mass ratioon 10-08-2021 Albumin/Globulin [Mass ratio] 1.0 {ratio} 0.9-2.4 [facility] Work Phone: [phone] Serum or plasma calcium luis urement (mass/volume)on 10-08-2021 Calcium [Mass/Vol] 9.1 mg/dL 8.5-10.1 [facility] Work Phone: Serum or plasma creatinine m easurement (mass/volume)on 10-08-2021 Creatinine [Mass/Vol] 0.94 mg/dL 0.70-1.30 [facility] Work Phone: Comment on above: The validity of the calculated GFR & GFRAA in patients over 70 years has not been determined. Clinical correlation is essential. Serum or plasma urea nitroge n measurement (mass/volume)on 10-08-2021 Urea nitrogen [Mass/Vol] 19 mg/dL 7-18 [facility] Work Phone: Squamous epithelial cells de tection in urine sediment by light microscopyon 10-08-2021 Epithelial cells.squamous LM Ql (Urine sed) 0-5 SEEN /hpf 0-5 [facility] Work Phone: Thin prep Papanicolaou smear with manual screeningon 10-08-2021 Thin prep Papanicolaou smear with manual screening 12 U/L 15-37 [facility] Work Phone: Thin prep Papanicolaou smear with manual screening 3 5-15 [facility] Work Phone: Urine blood detectionon 09-18 RBC Ql (U) 10 /ul Negative [facility] Work Phone: RBC Ql (U) 0 SEEN /hpf 0-5 [facility] Work Phone: [phone] Urine clarityon 10-08-2021 Clarity (U) Sl. Cloudy Clear [facility] Work Phone: Urine color determinationon 10-08-2021 Color (U) Yellow Yellow [facility] Work Phone: Urine glucose detectionon Glucose Ql (U) Normal mg/dl Normal [facility] Work Phone: [phone] Urine leukocyte esterase det ection by dipstickon 10-08-2021 Leukocyte esterase Test strip Ql (U) 500 /ul Negative [facility] Work Phone: [phone] Urine pHon 10-08-2021 pH (U) 6.5 [pH] 5.0 - 8.0 [facility] Work Phone: Urine sediment bacteria coun t by microscopy (number/high power field)on 10-08-2021 Bacteria LM.HPF (Urine sed) [#/Area] 3 /[HPF] None Seen [facility] Work Phone: Urine specific gravity measu rementon 10-08-2021 Specific gravity (U) [Rel density] 1.010 1.002-1.030 [facility] Work Phone: Urobilinogen Auto test strip Ql (U)on 10-08-2021 Urobilinogen Ql (U) Normal mg/dl Normal [facility] Work Phone: Absolute lymphocyte counton 09-22-2021 Lymphocytes Auto (Unsp spec) [#/Vol] 1.51 10*3/uL 0.83-4.51 [facility] Work Phone: Basophil percentageon 2021 Basophils/100 WBC (Bld) 2.1 % 0-1 [facility] Work Phone: Eosinophils/100 WBC (Bld) 5.1 % 0-5 [facility] Work Phone: Neutrophils (Bld) [#/Vol] 3.7 10*3/uL 2.0-7.7 [facility] Work Phone: Neutrophils/100 WBC (Bld) 60.6 % 47-70 [facility] Work Phone: WBC (Bld) [#/Vol] 6.1 10*3/uL 4.4-11.0 [facility] Work Phone: Blood erythrocytes count (nu mber/volume)on 09-22-2021 RBC (Bld) [#/Vol] 4.09 10*6/uL 4.6-6.2 [facility] Work Phone: Blood hemoglobin measurement (mass/volume)on 09-22-2021 Hemoglobin (Bld) [Mass/Vol] 9.1 g/dL 13.0-16.5 [facility] Work Phone: Blood lymphocytes/100 leukoc yteson 09-22-2021 Lymphocytes/100 WBC (Bld) 24.8 % 19-41 [facility] Work Phone: Blood monocytes/100 leukocyt eson 09-22-2021 Monocytes/100 WBC (Bld) 6.9 % 0-10 [facility] Work Phone: [phone] Blood platelet mean volumeon 09-22-2021 Platelet mean volume (Bld) [Entitic vol] 9.9 fL 6.2-12.0 [facility] Work Phone: Determination of erythrocyte mean corpuscular volume (MCV)on 09-22-2021 MCV (RBC) [Entitic vol] 77.5 fL 80-94 [facility] Work Phone: [phone] Hematocrit Auto (Bld) [Volum e fraction]on 09-22-2021 Hematocrit (Bld) [Volume fraction] 31.7 % 40-54 [facility] Work Phone: Laboratory - Hematology and Cell countson 09-22-2021 Erythrocyte distribution width (RBC) [Entitic vol] 56.2 fL 35.1-43.9 [facility] Work Phone: [phone] Erythrocyte distribution width (RBC) [Ratio] 19.9 % 11.6-14.6 [facility] Work Phone: [phone] Immature granulocytes/100 WBC (Bld) 0.500 % 0.0-0.9 [facility] Work Phone: [phone] Comment on above: IG% - Immature Granu locytes (promyelocytes, myelocytes and metamyelocytes) > 1% indicates that a LEFT SHIFT is Present. MCH (RBC) [Entitic mass] 22.2 pg 27.0-32.0 [facility] Work Phone: Nucleated RBC/100 WBC (Bld) [Ratio] 0 % 0-5 [facility] Work Phone: [phone] MCHC Auto (RBC) [Mass/Vol]on 09-22-2021 MCHC (RBC) [Mass/Vol] 28.7 g/dL 32-36 [facility] Work Phone: Platelets bldon 09-22-2021 Platelets (Bld) [#/Vol] 351 10*3/uL 150-450 [facility] Work Phone: CNPNon 09-21-2021 CNPN Telephone (AGGENS1) PEDRO PABLO SIERRA ([id number]) 1950 M CHT Date Time Provider Department 09/21/21 YE COELLO1 [...] Date Reviewed: 09/15/2021 Reviewed by: Anjel Braga APRN.CHANNEL MAN - Fully Assessed Reason for Visit: Appointment [...] [J43.9] - COMPOUNDED PRESCRIPTION Aerosol supplies Dx:J44.1 NPI#[id number] - COMPOUNDED PRESCRIPTION NEBULIZER FOR HOME USE. [...] left fem (more content not included)... Normal [facility] Absolute lymphocyte counton 09-17-2021 Lymphocytes Auto (Unsp spec) [#/Vol] 1.19 10*3/uL 0.83-4.51 [facility] Work Phone: Basophil percentageon 2021 Basophil percentage 0-5 SEEN /hpf 0-[address] [facility] Work Phone: Basophils/100 WBC (Bld) 1.6 % 0-1 [facility] Work Phone: Bilirubin [Mass/Vol] 0.30 mg/dL 0.20-1.00 [facility] Work Phone: Comment on above: For patients on eltr ombopag therapy, use of Dimension [place] TBIL is not recommended. Chloride [Moles/Vol] 104 mmol/L 98-107 [facility] Work Phone: Eosinophils/100 WBC (Bld) 1.1 % 0-5 [facility] Work Phone: Glucose [Mass/Vol] 100 mg/dL 74-106 [facility] Work Phone: Comment on above: Fasting Glucose resu lt from 100 to 125 mg/dL suggests IMPAIRED HOMEOSTASIS per A.D.A. criteria. Neutrophils (Bld) [#/Vol] 5.2 10*3/uL 2.0-7.7 [facility] Work Phone: Neutrophils/100 WBC (Bld) 73.0 % 47-70 [facility] Work Phone: Potassium [Moles/Vol] 4.2 mmol/L 3.5-5.1 [facility] Work Phone: Protein [Mass/Vol] 7.3 g/dL 6.4-8.2 [facility] Work Phone: Sodium [Moles/Vol] 136 mmol/L 136-145 [facility] Work Phone: WBC (Bld) [#/Vol] 7.1 10*3/uL 4.4-11.0 [facility] Work Phone: Bilirubin Test strip Ql (U)o n 09-17-2021 Bilirubin Ql (U) Negative Negative [facility] Work Phone: Blood erythrocytes count (nu mber/volume)on 09-17-2021 RBC (Bld) [#/Vol] 3.50 10*6/uL 4.6-6.2 [facility] Work Phone: Blood hemoglobin measurement (mass/volume)on 09-17-2021 Hemoglobin (Bld) [Mass/Vol] 7.9 g/dL 13.0-16.5 [facility] Work Phone: Blood lymphocytes/100 leukoc yteson 09-17-2021 Lymphocytes/100 WBC (Bld) 16.9 % 19-41 [facility] Work Phone: Blood monocytes/100 leukocyt eson 09-17-2021 Monocytes/100 WBC (Bld) 7.1 % 0-10 [facility] Work Phone: Blood platelet mean volumeon 09-17-2021 Platelet mean volume (Bld) [Entitic vol] 9.5 fL 6.2-12.0 [facility] Work Phone: Determination of erythrocyte mean corpuscular volume (MCV)on 09-17-2021 MCV (RBC) [Entitic vol] 75.1 fL 80-94 [facility] Work Phone: Hematocrit Auto (Bld) [Volum e fraction]on 09-17-2021 Hematocrit (Bld) [Volume fraction] 26.3 % 40-54 [facility] Work Phone: INR in Blood by Coagulation assayon 09-17-2021 INR Coag (Bld) [Relative time] 1.3 {INR} [facility] Work Phone: Ketones Test strip Ql (U)on 09-17-2021 Ketones Ql (U) Negative Negative [facility] Work Phone: Laboratory - Chemistry and C hemistry - challengeon 09-17-2021 ALP [Catalytic activity/Vol] 79 U/L 45-117 [facility] Work Phone: ALT [Catalytic activity/Vol] 36 U/L 16-61 [facility] Work Phone: [phone] CO2 [Moles/Vol] 25.0 mmol/L 21.0-32.0 [facility] Work Phone: [phone] Globulin (S) [Mass/Vol] 3.5 g/dL 2.2-4.2 [facility] Work Phone: [phone] Lipase [Catalytic activity/Vol] 102 U/L 73-393 [facility] Work Phone: [phone] Urea nitrogen/Creatinine [Mass ratio] 12.5 mg/mg 10-20 [facility] Work Phone: [phone] Laboratory - Coagulationon 0 09-17-2021 PT Coag (PPP) [Time] 15.4 s 11.7-14.9 [facility] Work Phone: [phone] Laboratory - Hematology and Cell countson 09-17-2021 Erythrocyte distribution width (RBC) [Entitic vol] 53.1 fL 35.1-43.9 [facility] Work Phone: [phone] Erythrocyte distribution width (RBC) [Ratio] 19.6 % 11.6-14.6 [facility] Work Phone: [phone] Immature granulocytes/100 WBC (Bld) 0.300 % 0.0-0.9 [facility] Work Phone: [phone] Comment on above: IG% - Immature Granu locytes (promyelocytes, myelocytes and metamyelocytes) > 1% indicates that a LEFT SHIFT is Present. MCH (RBC) [Entitic mass] 22.6 pg 27.0-32.0 [facility] Work Phone: Nucleated RBC/100 WBC (Bld) [Ratio] 0 % 0-5 [facility] Work Phone: [phone] MCHC Auto (RBC) [Mass/Vol]on 09-17-2021 MCHC (RBC) [Mass/Vol] 30.0 g/dL 32-36 [facility] Work Phone: [phone] Mucus LM Ql (Urine sed)on Mucus Ql (Urine sed) 0 SEEN /hpf [facility] Work Phone: [phone] Nitrite Test strip Ql (U)on 09-17-2021 Nitrite Ql (U) Positive Negative [facility] Work Phone: [phone] No Panel Informationon 09-17 Estimated Creatinine Clearance Calc 57.68 ml/min [facility] Work Phone: [phone] Estimated GFR (MDRD) Amer 83 mL/min >60 [facility] Work Phone: [phone] Comment on above: GFR Calc Estimated GFR (MDRD) Non-Af Amer 68 mL/min >60 [facility] Work Phone: [phone] Comment on above: Non- GFR Calc Platelets bldon 09-17-2021 Platelets (Bld) [#/Vol] 342 10*3/uL 150-450 [facility] Work Phone: [phone] Protein Test strip Ql (U)on 09-17-2021 Protein Ql (U) 15 mg/dl Negative [facility] [facility] Work Phone: [phone] Serum or plasma albumin luis urement (mass/volume)on 09-17-2021 Albumin [Mass/Vol] 3.8 g/dL 3.2-5.0 [facility] Work Phone: [phone] Serum or plasma albumin/glob ulin mass ratioon 09-17-2021 Albumin/Globulin [Mass ratio] 1.1 {ratio} 0.9-2.4 [facility] Work Phone: [phone] Serum or plasma calcium luis urement (mass/volume)on 09-17-2021 Calcium [Mass/Vol] 8.7 mg/dL 8.5-10.1 [facility] Work Phone: [phone] Serum or plasma creatinine m easurement (mass/volume)on 09-17-2021 Creatinine [Mass/Vol] 1.12 mg/dL 0.70-1.30 [facility] Work Phone: Comment on above: The validity of the calculated GFR & GFRAA in patients over 70 years has not been determined. Clinical correlation is essential. Serum or plasma urea nitroge n measurement (mass/volume)on 09-17-2021 Urea nitrogen [Mass/Vol] 14 mg/dL 7-18 [facility] Work Phone: [phone] Squamous epithelial cells de tection in urine sediment by light microscopyon 09-17-2021 Epithelial cells.squamous LM Ql (Urine sed) 0-5 SEEN /hpf 0-5 [facility] Work Phone: Thin prep Papanicolaou smear with manual screeningon 09-17-2021 Thin prep Papanicolaou smear with manual screening 19 U/L 15-37 [facility] Work Phone: Thin prep Papanicolaou smear with manual screening 7 5-15 [facility] Work Phone: Urine blood detectionon 04-0 RBC Ql (U) Negative Negative [facility] Work Phone: [phone] RBC Ql (U) 0 SEEN /hpf 0-5 [facility] Work Phone: [phone] Urine clarityon 09-17-2021 Clarity (U) Clear Clear [facility] Work Phone: Urine color determinationon 09-17-2021 Color (U) Yellow Yellow [facility] Work Phone: Urine glucose detectionon Glucose Ql (U) Normal mg/dl Normal [facility] Work Phone: [phone] Urine leukocyte esterase det ection by dipstickon 09-17-2021 Leukocyte esterase Test strip Ql (U) 25 /ul Negative [facility] Work Phone: [phone] Urine pHon 09-17-2021 pH (U) 6.0 [pH] 5.0 - 8.0 [facility] Work Phone: [phone] Urine sediment bacteria coun t by microscopy (number/high power field)on 09-17-2021 Bacteria LM.HPF (Urine sed) [#/Area] 1 /[HPF] None Seen [facility] Work Phone: Urine specific gravity measu rementon 09-17-2021 Specific gravity (U) [Rel density] 1.010 1.002-1.030 [facility] Work Phone: Urobilinogen Auto test strip Ql (U)on 09-17-2021 Urobilinogen Ql (U) Normal mg/dl Normal [facility] Work Phone: PT panel Coag (PPP)on 2021 INR Coag (Bld) [Relative time] 2.1 (EXT) 2.0 - 3.0 [facility] UA DIP, URINE (POC)on 2021 BILIRUBIN UA (POCT) Negative Negative [facility] CLARITY UA (POCT) Clear [facility] COLOR UA (POCT) Yellow [facility] GLUCOSE UA (POCT) Negative Negative mg/dL [facility] HEMOGLOBIN/BLOOD UA (POCT) Trace-lysed Abnormal Negative [facility] KETONE UA (POCT) Negative Negative mg/dL [facility] LEUKOCYTES UA (POCT) Small Abnormal Negative [facility] NITRITE UA (POCT) Positive Abnormal Negative [facility] PH UA (POCT) 5.5 4.5 - 8.0 [facility] Protein Ql (U) 100 mg/dL Abnormal Negative mg/dL [facility] SPECIFIC GRAVITY UA (POCT) 1.020 1.005 - 1.030 [facility] UROBILINOGEN UA (POCT) 0.2 E.U./dL Malaika l E.U./dL [facility] Glucose Glucometer (BldC) [M ass/Vol]on 08-21-2021 Glucose [Mass/Vol] 102 mg/dL 74-106 [facility] Work Phone: Comment on above: MANAGEMENT OF PATIEN T CARE PER NURSING PROTOCOL INR in Blood by Coagulation assayon 08-21-2021 INR Coag (Bld) [Relative time] 1.2 {INR} [facility] Work Phone: Laboratory - Coagulationon 0 08-21-2021 PT Coag (PPP) [Time] 14.9 s 11.7-14.9 [facility] Work Phone: Absolute lymphocyte counton 08-20-2021 Lymphocytes Auto (Unsp spec) [#/Vol] 0.77 10*3/uL 0.83-4.51 [facility] Work Phone: Basophil percentageon 2021 Basophils/100 WBC (Bld) 0.8 % 0-1 [facility] Work Phone: Bilirubin [Mass/Vol] 0.70 mg/dL 0.20-1.00 [facility] Work Phone: Comment on above: For patients on eltr ombopag therapy, use of Dimension [place] TBIL is not recommended. Chloride [Moles/Vol] 107 mmol/L 98-107 [facility] Work Phone: Eosinophils/100 WBC (Bld) 2.2 % 0-5 [facility] Work Phone: Glucose [Mass/Vol] 99 mg/dL 74-106 [facility] Work Phone: Neutrophils (Bld) [#/Vol] 4.9 10*3/uL 2.0-7.7 [facility] Work Phone: Neutrophils/100 WBC (Bld) 77.2 % 47-70 [facility] Work Phone: Potassium [Moles/Vol] 3.7 mmol/L 3.5-5.1 [facility] Work Phone: Protein [Mass/Vol] 6.2 g/dL 6.4-8.2 [facility] Work Phone: Sodium [Moles/Vol] 139 mmol/L 136-145 [facility] Work Phone: WBC (Bld) [#/Vol] 6.3 10*3/uL 4.4-11.0 [facility] Work Phone: Blood erythrocytes count (nu mber/volume)on 08-20-2021 RBC (Bld) [#/Vol] 3.72 10*6/uL 4.6-6.2 [facility] Work Phone: [phone] Blood hemoglobin measurement (mass/volume)on 08-20-2021 Hemoglobin (Bld) [Mass/Vol] 7.8 g/dL 13.0-16.5 [facility] Work Phone: [phone] Blood lymphocytes/100 leukoc yteson 08-20-2021 Lymphocytes/100 WBC (Bld) 12.2 % 19-41 [facility] Work Phone: [phone] Blood monocytes/100 leukocyt eson 08-20-2021 Monocytes/100 WBC (Bld) 6.8 % 0-10 [facility] Work Phone: [phone] Blood platelet mean volumeon 08-20-2021 Platelet mean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 ([place] agency on aging) [phone] call for to update on svcs received. [facility] patient receives waiver services through [facility] for HHC (SN/PT/OT), meals, and emergency health line. Would like to be updated on discharge plans once known. SIGNATURE: Mary Carmen Meredith RN PATIENT NAME: Pedro Pablo Sierra DATE: October 17, 2019 TIME: 12:52 PM PAGER/CONTACT #: [phone] Previous Version Emilie Mcclelland RN, RN 10/17/2019 7:03 PM Addendum Nursing Progress Note Patient Name: Pedro Pablo Sierra Patient Location: [id number][facility] 534-01 __ Daily Note: Alert and oriented [...] PATIENT NAME: Pedro Pablo Sierra PATIENT LOCATION: [id number]/[facility] 53* READINESS TO LEARN COGNITIVE ABILITY: Alert [...] Patient Name: Pedro Pablo Sierra Patient Location: [id number]/[address] 534- __ Daily Note: Patient has been NPO [...] have any questions, please contact Lit at [phone]. Age: [age] year old Allergies: ALLERGIES No [...] note was completed by: Emilie Mcclelland RN Progress Notes ([facility]): Emilie Haque RN 10/16/2019 2:25 PM [...] with any changes. Emilie Haque RN Normal [facility] Basic Metabolic Panlon 10-13 Anion gap [Moles/Vol] 12 mmol/L Normal 9-18 [facility] Comment on above: Performed By: #### C LARRY, BMP, PT ####[place] [phone] Calcium [Mass/Vol] 8.3 mg/dL Low 8.5-10.5 [facility] Comment on above: Performed By: #### C LARRY BMP, PT ####[place] [phone] Chloride [Moles/Vol] 100 mmol/L Normal 98-110 [facility] Comment on above: Performed By: #### C LARRY, BMP, PT ####[facility] [place], [place] [phone] CO2 [Moles/Vol] 25 mmol/L Normal 23-32 [facility] Comment on above: Performed By: #### C BC, BMP, PT ####[facility] [place], [place] [phone] Creatinine [Mass/Vol] 0.69 mg/dL Low 0.70-1.40 [facility] Comment on above: Performed By: #### KATHY HARRISON, PT ####[place] [phone] eGFR- Amer. >60 Normal >60 [facility] Comment on above: Performed By: #### KATHY HARRISON, PT ####[place] [phone] GFR/1.73 sq M predicted among non-blacks MDRD (S/P/Bld) [Vol rate/Area] mL/min/{1.73_m2} Normal >60 [facility] Comment on above: Performed By: #### KATHY HARRISON, PT ####[place] [phone] Glucose [Mass/Vol] 100 mg/dL Normal 65-100 [facility] Comment on above: Performed By: #### KATHY HARRISON, PT ####[place] [phone] Potassium [Moles/Vol] 3.9 mmol/L Normal 3.5-5.0 [facility] Comment on above: Performed By: #### KATHY HARRISON, PT ####[place] [phone] Sodium [Moles/Vol] 137 mmol/L Normal 135-146 [facility] Comment on above: Performed By: #### KATHY HARRISON, PT ####[place] [phone] Urea nitrogen [Mass/Vol] 8 mg/dL Low 10-25 [facility] Comment on above: Performed By: #### KATHY HARRISON, PT ####[place] [phone] CASE MANAGEMon 10-14-2019 CASE MANAGEM HNO ID: [id number] Author: Guadalupe Yee (Sw) Service: ? Author Type: Drill Press Operator For Metal Type: Care Mgt Progress Note Filed: 10/14/2019 10:14 AM Note Text: CARE MANAGEMENT DISCHARGE NOTE SERVICE DATE: 10/14/2019 SERVICE TIME: 9:59 AM LOS: 6 days Admission Date: 10/08/2019 DISCHARGE ARRANGEMENT (list agency and phone number) Discharge Arrangement: Home Retirement Care: Nursing;OT Provider Name: [facility] CAREGIVER ASSESSMENT: Caregiver is ready, willing and able to meet the patient's needs as recommended by the inter-professional team:: Yes Does the patient have an acute stroke diagnosis, or has the patient had a stroke during this admission?: No Patient's transition needs and plan for meeting these needs: [facility] HANDOFF COMMUNICATION: Handoff to: Primary Care Physician Bushel Worker Name/Phone: Daija Morton/[phone] Primary Care Physician Name/Phone: Daija Morton TRANSPORTATION ARRANGEMENTS: Transportation Arrangements: Car ADDITIONAL CONTACT RESOURCES: Discharge Information Row Name Admission (Current) from 10/08/[address] [facility] Agency [facility] Start of Care 10/16/19 Patient will be discharged home today. Patient reports his family will be here to transport him home. D/C order and AVS was sent to [facility] agency. Patient updated on his denial notice and the need to be d/c today before noon today. Addendum- Spoke with [facility] agency about drawn INR on Monday. [facility] agency reported they would provide a SOC on Monday. Updated PA to write orders to have INR drawn on Monday per [facility] request. SIGNATURE: SHANE CLEMONS PATIENT NAME: Pedro Pablo Sierra DATE: October 14, 2019 TIME: 9:58 AM PAGER/CONTACT #: [phone] Normal [facility] CBCon 10-14-2019 Erythrocyte distribution width (RBC) [Ratio] 15.9 % High 11.5-15.0 [facility] Comment on above: Performed By: #### C KATHY JUAREZ, PT ####[facility] [place], [place] [phone] Hematocrit (Bld) [Volume fraction] 28.2 % Low 39.0-51.0 [facility] Comment on above: Performed By: #### C KATHY JUAREZ, PT ####[address] [phone] Hemoglobin (Bld) [Mass/Vol] 9.0 g/dL Low 13.0-17.0 [facility] Comment on above: Performed By: #### C BC, BMP, PT ####[address] [phone] MCH (RBC) [Entitic mass] 29.8 pG Normal 26.0-34.0 [facility] Comment on above: Performed By: #### C BC, BMP, PT ####[place] [phone] MCHC (RBC) [Mass/Vol] 31.9 g/dL Normal 30.5-36.0 [facility] Comment on above: Performed By: #### C BC, BMP, PT ####[address] [phone] MCV (RBC) [Entitic vol] 93.4 fL Normal 80.0-100.0 [facility] Comment on above: Performed By: #### C BC, BMP, PT ####[place] [phone] Platelet mean volume (Bld) [Entitic vol] 9.8 fL Normal 9.0-12.7 [facility] Comment on above: Performed By: #### C BC, BMP, PT ####[place] [phone] Platelets (Bld) [#/Vol] 225 10*3/uL Normal 150-400 [facility] Comment on above: Performed By: #### C BC, BMP, PT ####[address] [phone] RBC (Bld) [#/Vol] 3.02 10*6/uL Low 4.20-6.00 [facility] Comment on above: Performed By: #### C BC, BMP, PT ####[place] [phone] WBC (Bld) [#/Vol] 4.88 10*3/uL Normal 3.70-11.00 [facility] Comment on above: Performed By: #### C BC, BMP, PT ####[facility] [place], [place] [phone] NURSING PROGon 10-14-2019 NURSING PROG HNO ID: [id number] Author: Fran Hutchison) ОЛЕГ Solorio Service: ? Author Type: Registered Nurse Type: Nursing Progress Note Filed: 10/14/2019 6:05 PM Note Text: Nursing Progress Note Patient Name: Pedro Pablo Sierra Patient Location: -[id number] __ Daily Note: Patient was resting comfortably [...] note was completed by: Fran Solorio RN Normal [facility] NUTRITIONon 10-14-2019 NUTRITION HNO ID: [id number] Author: Muna Rivas Service: Nutrition Therapy Author [...] and weekends please page the Group Pager [phone] [facility] PLAN OF CAREon 10-14-2019 PLAN OF CARE HNO ID: [id number] Author: Sherly Quigley (Aircraft Landing Gear Inspector) Service: Pharmacy Author Type: Manager Business Systems Type: Plan of Care Filed: 10/15/2019 11:12 AM Note Text: EPIC WILLOW SPECIALIST BEDSIDE DELIVERY SURVEY 1. Patient to use [facility] Bedside Delivery - NO prefer own pharmacy Insurance Information as follows: 2. Insurance card on file - NO 3. Credit card for payment - NO [facility] PLAN OF CARE HNO ID: [id number] Author: Roman Richey) Era Service: Vascular Surgery [...] Morton stated that she would have her Science Technicians call him today to make a post dc followup virtual appt on 10/15 to go over INR results. - [facility] geological manager coordinated with Home health and scheduled INR check on 10/15 -Pt's ex is picking pt up for discharge to home at 1200 per pt Roman Girard RADIO MECHANIC HELPER/LAMIN Vascular Surgery Pager: [phone] [facility] PROGRESSon 10-14-2019 PROGRESS HNO ID: [id number] Author: Ayad Tompkins MD Service: Vascular Surgery [...] -- 10/11/19 0945 activity - [place]ize [place]) 10/08/19 1645 pneumatic compression stockings ([place] VTE Prophylaxis: on AC ALLERGIES No [...] R PT DATA: Laboratory: Recent Labs 10/14/19 0421 10/13/19 0511 10/12/19 0913 WBC 4.88 4.79 5.98 HB 9.0* 8.4* 9.7* HCT 28.2* 26.2* 29.3* PLT 225 187 173 Recent Labs 10/14/19 0421 10/13/19 0511 10/12/19 0913 NA 137 138 135 K 3.9 3.5 3.6 BUN 8* 8* 8* CREAT 0.69* 0.68* 0.64* GLUC 100 103* 151* Recent Labs 10/14/19 0421 10/13/19 0511 10/12/19 0913 INR 2.6* 2.9* 1.5* Assessment/Plan Impression: Pedro Pablo Sierra is a 69 year old White male who was admitted for surgical management of claudication w/ rest pain and is s/p L HAZMAT CDL A DRIVER EA w/ bovine patch, L RADHA and EIA thrombectomy, L CI and EI stenting 10/07 c/b 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 Ringed PTFE 10/09. Plan: INR in range, will resume home coumadin regimen; d/c lovenox Reg diet, HLIV PO pain meds Cont. plavix Dressing changes PRN to groin Dispo: D/c home with [facility] today Ayad Tompkins MD General Surgery, PGY-3 For questions Monday through Monday 6am to 6pm please page Red Team [phone] For questions during nights (6pm - 6am) and weekends, please contact the General Surgery Radio Electronics Technician pager, [phone] [facility] Protimeon 10-14-2019 PT Coag (PPP) [Time] 27.5 s High 9.7-13.0 [facility] Comment on above: Performed By: #### C KATHY JUAREZ, PT ####[place] [phone] [place], [place] [phone] PT Coag (PPP) [Time] 2.6 s High 0.9-1.3 [facility] Comment on above: Result Comment: Teri min K Antagonist (VKA) Therapeutic Range: INR 2 to 3 (Target INR of 2.5) Note: For patients treated with VKA drugs, such as warfarin, the [employer] 2012 Guideline recommends [...] Chest 2012, 141:7S-47S Gio RA, et al. [facility] 2017, 70: 252-289 Performed By: #### C KATHY JUAREZ, PT ####[facility] [place], [place] [phone] THERAPY NTon 10-14-2019 THERAPY NT HNO ID: [id number] Author: Shakir Alicea (Pt) Mode Service: Physical Therapy Author Type: Physical Therapist Type: Therapy (PT/OT/Speech/Resp) Filed: 10/14/2019 10:40 AM Note Text: Physical Therapy Treatment SERVICE DATE: 10/14/2019 SERVICE TIME: 1003 to 1026 ROOM: [place] [address] Recommended Discharge Disposition: Home PT Anticipated Discharge [...] ness on feet Interventions Provided: Gait Training (80737);Therapeutic Activity (15562) Therapeutic Activity (60033) Treatment Minutes: 10 1 unit Skilled Intervention(s): [...] in position prior to mobility Gait Training (21449) Treatment Minutes: 13 1 unit Skilled Intervention(s): [...] Consult : PVD s/p L LE redo HAZMAT CDL A DRIVER endarterectomy, L profundoplasty, iliac stenting on 10/08/19 Relevant Past Medical History: S/p L femoral endarterectomy/aoroili ac stenting Patient Report: Pt agreeable to participate in therapy session. Pt having coughing spells intermittently during functional mobility, stating that he gets light headed when this occurs (vascular team was notified). Home Environment Patient Lives With: Self/Alone Assistance Available: rehabilitation nurse Entry To Home: Stairs;Other: See Comment(stair lift) [...] DATE: October 14, 2019 TIME: 10:37 AM [facility] THERAPY NT HNO ID: [id number] Author: Caitlin (Giuseppe) William Service: Occupational Therapy Author Type: Occupational Therapist Type: Therapy (PT/OT/Speech/Resp) Filed: 10/14/2019 10:18 AM Note Text: OCCUPATIONAL THERAPY MISSED VISIT SERVICE DATE: 10/14/2019 SERVICE TIME: 920 to 920 ROOM: [place] [address] Attempted Treatment. Patient not seen due to Declined. Pt declines OT tx stating, Not until after dinner. OT explains that it is 9 in the morning with pt verbalizing understanding and continuing to decline therapy at this time. Continue OT per POC as able. SIGNATURE: Caitlin Thomas, OTR/L PATIENT NAME: Pedro Pablo Sierra DATE: October 14, 2019 TIME: 10:17 AM [facility] Basic Metabolic Panlon 10-12 Anion gap [Moles/Vol] 10 mmol/L Normal 9-18 [facility] Comment on above: Performed By: #### C KATHY JUAREZ, PT ####[place] [phone] [place] [phone] Calcium [Mass/Vol] 8.1 mg/dL Low 8.5-10.5 [facility] Comment on above: Performed By: #### C LARRY BMP, PT ####[place] [phone] Chloride [Moles/Vol] 102 mmol/L Normal 98-110 [facility] Comment on above: Performed By: #### C BC, BMP, PT ####[place] [phone] CO2 [Moles/Vol] 26 mmol/L Normal 23-32 [facility] Comment on above: Performed By: #### C BC, BMP, PT ####[place] [phone] Creatinine [Mass/Vol] 0.68 mg/dL Low 0.70-1.40 [facility] Comment on above: Performed By: #### C KATHY JUAREZ, PT ####[place] [phone] eGFR- Amer. >60 Normal >60 [facility] Comment on above: Performed By: #### C KATHY JUAREZ, PT ####[place] [phone] GFR/1.73 sq M predicted among non-blacks MDRD (S/P/Bld) [Vol rate/Area] mL/min/{1.73_m2} Normal >60 [facility] Comment on above: Performed By: #### C KATHY JUAREZ, PT ####[place] [phone] Glucose [Mass/Vol] 103 mg/dL High 65-100 [facility] Comment on above: Performed By: #### C KATHY JUAREZ, PT ####[place] [phone] Potassium [Moles/Vol] 3.5 mmol/L Normal 3.5-5.0 [facility] Comment on above: Performed By: #### C KATHY JUAREZ, PT ####[place] [phone] Sodium [Moles/Vol] 138 mmol/L Normal 135-146 [facility] Comment on above: Performed By: #### C KATHY JUAREZ, PT ####[place] [phone] Urea nitrogen [Mass/Vol] 8 mg/dL Low 10-25 [facility] Comment on above: Performed By: #### C LARRY BMP, PT ####[place] [phone] CASE MANAGEMon 10-13-2019 CASE MANAGEM HNO ID: [id number] Author: Carly (Rn) Donovan RN Service: Case [...] Pt states understanding. Pt aware he will HH services. AVS faxed to [facility] ( Waiver CM) SIGNATURE: Carly Man RN,BSN PATIENT NAME: Pedro Pablo Sierra DATE: October 13, 2019 TIME: 1:54 PM PAGER/CONTACT #: [phone] Normal [facility] CBCon 10-13-2019 Erythrocyte distribution width (RBC) [Ratio] 15.9 % High 11.5-15.0 [facility] Comment on above: Performed By: #### C KATHY JUAREZ, PT ####[place] [phone] Hematocrit (Bld) [Volume fraction] 26.2 % Low 39.0-51.0 [facility] Comment on above: Performed By: #### C KATHY JUAREZ, PT ####[place] [phone] Hemoglobin (Bld) [Mass/Vol] 8.4 g/dL Low 13.0-17.0 [facility] Comment on above: Performed By: #### C KATHY JUAREZ, PT ####[place] [phone] MCH (RBC) [Entitic mass] 29.6 pG Normal 26.0-34.0 [facility] Comment on above: Performed By: #### C KATHY JUAREZ, PT ####[phone] MCHC (RBC) [Mass/Vol] 32.1 g/dL Normal 30.5-36.0 [facility] Comment on above: Performed By: #### C BC, BMP, PT ####[place] [phone] [place] [phone] MCV (RBC) [Entitic vol] 92.3 fL Normal 80.0-100.0 [facility] Comment on above: Performed By: #### C LARRY BMP, PT ####[place] [phone] Platelet mean volume (Bld) [Entitic vol] 10.0 fL Normal 9.0-12.7 [facility] Comment on above: Performed By: #### C LARRY BMP, PT ####[place] [phone] Platelets (Bld) [#/Vol] 187 10*3/uL Normal 150-400 [facility] Comment on above: Performed By: #### C KATHY JUAREZ, PT ####[place] [phone] RBC (Bld) [#/Vol] 2.84 10*6/uL Low 4.20-6.00 [facility] Comment on above: Performed By: #### C KATHY JUAREZ, PT ####[place] [phone] WBC (Bld) [#/Vol] 4.79 10*3/uL Normal 3.70-11.00 [facility] Comment on above: Performed By: #### KATHY HARRISON, PT ####[place] [phone] NURSING PROGon 10-13-2019 NURSING PROG HNO ID: [id number] Author: Stefania France (Rn) ОЛЕГ García Service: ? Author Type: Registered Nurse Type: Nursing Progress Note Filed: 10/13/2019 10:12 AM Note Text: Nursing Progress Note Patient Name: Pedro Pablo Sierra Patient Location: [address] __ Daily Note:Patient expressed a desire to [...] note was completed by: Stefania García RN [facility] NURSING PROG HNO ID: [id number] Author: Emily NessRn) ОЛЕГ Linda Service: ? Author Type: Registered Nurse Type: Nursing Progress Note Filed: 10/13/2019 12:12 AM Note Text: Nursing Progress Note Patient Name: Pedro Pablo Sierra Patient Location: [place] [address]/[address] __ Daily Note: 2151-- pt resting in [...] reach. 0000-- page to on-call surgery team [phone]-- Pedro Pablo Sierra [id number]-- patients L groin cath site has frequent medium amount of serosanguinous drainage, dressing changed. small hematoma still present. just wanted to make aware. thanks, Emily [phone] 0008-- call back from Noman Fish, general surgery resident, says continue monitoring incision for larger amount of bloody drainage and dehiscence. This note was completed by: Emily Linda RN [facility] PROGRESSon 10-13-2019 PROGRESS HNO ID: [id number] Author: Noman Fish MD Service: General Surgery Author Type: Resident Type: Progress Notes Filed: 10/13/2019 7:13 AM Note Text: [facility]ULAR [facility] POSTOP PROGRESS NOTE Service Date: 10/13/2019Admit Date: 10/08/2019Service Time: 7:08 AM LOS: 5 day(s) Primary Service: Vascular Surgery Vascular Physician: Ryan May MD Interval Events/Issues: Drainage from incision site. Patient angry about discharge, wants zkeuq-uwg-cjlfb care at home. Otherwise no acute events. [...] -- 10/11/19 0945 activity - mobilize patient ([place]) 10/08/19 1645 pneumatic compression stockings ([place]) VTE Prophylaxis: on AC ALLERGIES No Known [...] w/ rest pain and is s/p L HAZMAT CDL A DRIVER EA w/ bovine patch, L RADHA and EIA thrombectomy, L CI and EI stenting 10/07 c/b thrombosis s/p : EIA to HAZMAT CDL A DRIVER bypass graft w. Ringed PTFE 10/09. Plan: Continue lovenox to coumadin bridge Reg diet, HLIV PO pain meds S/p brittany-op abx No clark Cont. plavix Dressing changes PRN to groin Dispo: D/c home with [facility] today Noman Fish MD 7:09 AM 10/13/2019 See below: For questions Monday through Monday 6am to 6pm please page Red Team [phone] For questions during nights (6pm - 6am) and weekends, please contact the General Surgery Radio Electronics Technician pager, [phone] Normal [facility] Protimeon 10-13-2019 PT Coag (PPP) [Time] 30.6 s High 9.7-13.0 [facility] Comment on above: Performed By: #### C KATHY JUAREZ, PT ####[facility] [place], [place] [phone] PT Coag (PPP) [Time] 2.9 s High 0.9-1.3 [facility] Comment on above: Result Comment: Teri min K Antagonist (VKA) Therapeutic Range: INR 2 to 3 (Target INR of 2.5) Note: For patients treated with VKA drugs, such as warfarin, the [employer] 2012 Guideline recommends [...] Chest 2012, 141:7S-47S Gio RA, et al. [facility] 2017, 70: 252-289 Performed By: #### C KATHY JUAREZ, PT ####[facility] [place], [place] [phone] THERAPY NTon 10-13-2019 THERAPY NT HNO ID: [id number] Author: Shakir Alicea (PtPauline Coello Service: Physical Therapy Author Type: Physical Therapist Type: Therapy (PT/OT/Speech/Resp) Filed: 10/13/2019 1:35 PM Note Text: Physical Therapy Treatment SERVICE DATE: 10/13/2019 SERVICE TIME: 1235 to 1300 ROOM: [place] [address] Recommended Discharge Disposition: Home PT Anticipated Discharge [...] at End of Session: OOB in Chair;Call Enlson in Reach;Chair Alarm Tolerated Full Session Pain;Other: [...] ness on feet Interventions Provided: Gait Training (31125) Gait Training (65767) Treatment Minutes: 25 2 units Skilled Intervention(s): [...] Consult : PVD s/p L LE redo HAZMAT CDL A DRIVER endarterectomy, L profundoplasty, iliac stenting on 10/08/19 Relevant Past Medical History: S/p L femoral endarterectomy/aoroili ac stenting Patient Report: Pt agreeable to participate in therapy session Home Environment Patient Lives With: Self/Alone Assistance Available: rehabilitation nurse Entry To Home: Stairs;Other: See Comment(stair lift) [...] October 13, 2019 TIME: 1:34 PM Normal [facility] Basic Metabolic Panlon 10-11 Anion gap [Moles/Vol] 11 mmol/L Normal 9-18 [facility] Comment on above: Performed By: #### C BC, PT, BMP ####[place] [phone] Calcium [Mass/Vol] 8.1 mg/dL Low 8.5-10.5 [facility] Comment on above: Performed By: #### C BC, PT, BMP ####[place] [phone] Chloride [Moles/Vol] 98 mmol/L Normal 98-110 [facility] Comment on above: Performed By: #### C BC, PT, BMP ####[place] [phone] CO2 [Moles/Vol] 26 mmol/L Normal 23-32 [facility] Comment on above: Performed By: #### C BC, PT, BMP ####[place] [phone] Creatinine [Mass/Vol] 0.64 mg/dL Low 0.70-1.40 [facility] Comment on above: Performed By: #### C BC, PT, BMP ####[address] eGFR- Amer. >60 Normal >60 [facility] Comment on above: Performed By: #### C BC, PT, BMP ####[place] [phone] GFR/1.73 sq M predicted among non-blacks MDRD (S/P/Bld) [Vol rate/Area] mL/min/{1.73_m2} Normal >60 [facility] Comment on above: Performed By: #### C BC, PT, BMP ####[place] [phone] Glucose [Mass/Vol] 151 mg/dL High 65-100 [facility] Comment on above: Performed By: #### C BC, PT, BMP ####[place] [phone] Potassium [Moles/Vol] 3.6 mmol/L Normal 3.5-5.0 [facility] Comment on above: Performed By: #### C BC, PT, BMP ####[facility] [place], [place] [phone] Sodium [Moles/Vol] 135 mmol/L Normal 135-146 [facility] Comment on above: Performed By: #### C BC, PT, BMP ####[place] [id number] [place], [place] [phone] Urea nitrogen [Mass/Vol] 8 mg/dL Low 04-12 [facility] Comment on above: Performed By: #### C BC, PT, BMP ####[facility] [place], [place] [phone] CASE MANAGEMon 10-12-2019 CASE MANAGEM HNO ID: [id number] Author: Carly Hutchison) ОЛЕГ Man Service: Case Management Author Type: Registered Nurse Type: Care Mgt Progress Note Filed: 10/12/2019 12:39 PM Note Text: CARE MANAGEMENT PROGRESS NOTE SERVICE DATE: 10/12/2019 SERVICE TIME: 1230 LOS: 4 days Needs Prior to Discharge: To Be Determined Clinicals faxed to [facility] SIGNATURE: Carly Man RN,BSN PATIENT NAME: Pedro Pablo Sierra DATE: October 12, 2019 TIME: 12:38 PM PAGER/CONTACT #: [phone] [facility] CASE MANAGEM HNO ID: [id number] Author: Carly Hutchison) Donovan RN Service: Case Management Author Type: [...] 12, 2019 TIME: 10:14 AM PAGER/CONTACT #: [phone] Normal [facility] CBCon 10-12-2019 Erythrocyte distribution width (RBC) [Ratio] 16.0 % High 11.5-15.0 [facility] Comment on above: Performed By: #### C BC, PT, BMP ####[place] [phone] Hematocrit (Bld) [Volume fraction] 29.3 % Low 39.0-51.0 [facility] Comment on above: Performed By: #### C BC, PT, BMP ####[place] [phone] Hemoglobin (Bld) [Mass/Vol] 9.7 g/dL Low 13.0-17.0 [facility] Comment on above: Performed By: #### C BC, PT, BMP ####[place] [phone] MCH (RBC) [Entitic mass] 30.3 pG Normal 26.0-34.0 [facility] Comment on above: Performed By: #### C BC, PT, BMP ####[place] [phone] MCHC (RBC) [Mass/Vol] 33.1 g/dL Normal 30.5-36.0 [facility] Comment on above: Performed By: #### C BC, PT, BMP ####[place] [phone] MCV (RBC) [Entitic vol] 91.6 fL Normal 80.0-100.0 [facility] Comment on above: Performed By: #### C BC, PT, BMP ####[place] [phone] Platelet mean volume (Bld) [Entitic vol] 10.2 fL Normal 9.0-12.7 [facility] Comment on above: Performed By: #### C BC, PT, BMP ####[place] [phone] Platelets (Bld) [#/Vol] 173 10*3/uL Normal 150-400 [facility] Comment on above: Performed By: #### C BC, PT, BMP ####[place] [phone] RBC (Bld) [#/Vol] 3.20 10*6/uL Low 4.20-6.00 [facility] Comment on above: Performed By: #### C BC, PT, BMP ####[place] [phone] WBC (Bld) [#/Vol] 5.98 10*3/uL Normal 3.70-11.00 [facility] Comment on above: Performed By: #### C BC, PT, BMP ####[address] [phone] NURSING PROGon 10-12-2019 NURSING PROG HNO ID: [id number] Author: Daphney (Rn) ОЛЕГ Baron Service: Nursing Author Type: Registered Nurse Type: Nursing Progress Note Filed: 10/12/2019 4:25 PM Note Text: Nursing Progress Note Patient Name: Pedro Pablo Sierra Patient Location: / __ Daily Note: 0900: Pt up to chair with 2 assist and walker. Pt states left leg is painful, but able to bear weight. Pt does not want to be discharged at this time, PT/OT recommending skilled, pt refusing and wanting home care around the clock. Pt requesting robitussin for cough, given at 0841 per order. 1130: Pt assisted to bathroom with vice president of nursing and walker. Pt was able to ambulate from bathroom to bed using walker with standby assist. 1610: Incision to left groin oozing serosang drainage. Gown saturated and needed to be changed. Abd and paper tape applied to cover and collect drainage. Pt c/o pain to left groin, 01/26. Medicated with 10mg po oxycodone. This note was completed by: Daphney Baron RN [facility] PROGRESSon 10-12-2019 PROGRESS HNO ID: [id number] Author: Elly Brown Service: Vascular Surgery Author [...] -- 10/11/19 0945 activity - mobilize patient (wv,oh) 10/08/19 1645 pneumatic compression stockings (wv,oh) VTE Prophylaxis: on AC ALLERGIES No Known [...] w/ rest pain and is s/p L HAZMAT CDL A DRIVER EA w/ bovine patch, L RADHA and EIA thrombectomy, L CI and EI stenting 10/07 c/b thrombosis s/p : EIA to HAZMAT CDL A DRIVER bypass graft w. Ringed PTFE 10/09. Plan: [...] CRISPIN stenting on 10/23, UC, CAD previous ME, DM, HTN, HLD, COPD Overall Course: 63 [...] and weekends, please contact the General Surgery Radio Electronics Technician pager, [phone] Normal [facility] Protimeon 10-12-2019 PT Coag (PPP) [Time] 15.6 s High 9.7-13.0 [facility] Comment on above: Performed By: #### C BC, PT, BMP ####[facility] [place], [place] [phone] PT Coag (PPP) [Time] 1.5 s High 0.9-1.3 [facility] Comment on above: Result Comment: Teri min K Antagonist (VKA) Therapeutic Range: INR 2 to 3 (Target INR of 2.5) Note: For patients treated with VKA drugs, such as warfarin, the [employer] 2012 Guideline recommends [...] Chest 2012, 141:7S-47S Gio KENNY et al. [facility] 2017, 70: 252-289 Performed By: #### C BC, PT, BMP ####[facility] [place], [place] [phone] ANES POSTPROC EVALon 020 ANES POSTPROC EVAL HNO ID: [id number] Author: Cassie Zavala Service: ? Author Type: Anesthesiologist Type: Anesthesia Postprocedure Evaluation Filed: 10/11/2019 7:41 AM Note Text: POST ANESTHESIA EVALUATION NOTE : 1950 Procedure Summary Date: 10/10/19 Room / Location: ORA / [facility] OR Anesthesia Start: 853 Anesthesia Stop: 1429 Procedure: ENDARTERECTOMY FEMORAL (Left Leg) Diagnosis: Femoral [...] October 11, 2019 TIME: 7:41 AM CSN: [id number] Normal [facility] Basic Metabolic Panlon 10-10 Anion gap [Moles/Vol] 9 mmol/L Normal 9-18 [facility] Comment on above: Performed By: #### C BC, BMP, MG1, PHOS ####[facility] [place], [place] [phone] Calcium [Mass/Vol] 7.7 mg/dL Low 8.5-10.5 [facility] Comment on above: Performed By: #### C BC, BMP, MG1, PHOS ####[place] [phone] Chloride [Moles/Vol] 101 mmol/L Normal 98-110 [facility] Comment on above: Performed By: #### C BC, BMP, MG1, PHOS ####[place] [phone] CO2 [Moles/Vol] 26 mmol/L Normal 23-32 [facility] Comment on above: Performed By: #### C BC, BMP, MG1, PHOS ####[place] [phone] Creatinine [Mass/Vol] 0.63 mg/dL Low 0.70-1.40 [facility] Comment on above: Performed By: #### C BC, BMP, MG1, PHOS ####[place] [phone] eGFR- Amer. >60 Normal >60 [facility] Comment on above: Performed By: #### C BC, BMP, MG1, PHOS ####[place] [phone] GFR/1.73 sq M predicted among non-blacks MDRD (S/P/Bld) [Vol rate/Area] mL/min/{1.73_m2} Normal >60 [facility] Comment on above: Performed By: #### C BC, BMP, MG1, PHOS ####[place] [phone] Glucose [Mass/Vol] 107 mg/dL High 65-100 [facility] Comment on above: Performed By: #### C BC, BMP, MG1, PHOS ####[place] [phone] Potassium [Moles/Vol] 3.9 mmol/L Normal 3.5-5.0 [facility] Comment on above: Performed By: #### C BC, BMP, MG1, PHOS ####[address], [place] [phone] Sodium [Moles/Vol] 136 mmol/L Normal 135-146 [facility] Comment on above: Performed By: #### C BC, BMP, MG1, PHOS ####[facility] [place], [place] [phone] Urea nitrogen [Mass/Vol] 8 mg/dL Low 10-25 [facility] Comment on above: Performed By: #### C BC, BMP, MG1, PHOS ####[facility] [place], [place] [phone] CASE MGT INIT ASSESon 2019 CASE MGT INIT ASSES HNO ID: [id number] Author: Bri (Олег) ОЛЕГ Swann Service: Case Management Author Type: Registered Nurse Type: Care Mgt Initial Assessment Filed: 10/11/2019 2:43 PM Note Text: CARE MANAGEMENT PROGRESS NOTE SERVICE DATE: 10/11/2019 SERVICE TIME: 2:38 PM LOS: 3 days [place] of Choice Given: Yes Level of Care Discussed: Home Care Financial Disclosure Provided: Yes Financial Disclosure Comments: discussed Needs Prior to Discharge: To Be Determined;Home Care Order CM discussed with pt discharge planning. pt has his home set up for his needs with elevator and refusing rehab at this time due to Covid 19 risks. Pt was active with [facility] for nurse visit and prefers to continue. CM made referral via ascripts, pt will need F2F for PT/OT/SN at d/c. CM flagged weekend CM staff for potential d/c this weekend and will need AVS faxed at d/c to [phone]. CM to follow as needed. SIGNATURE: Bri Swann RN,BSN PATIENT NAME: Pedro Pablo Sierra DATE: October 11, 2019 TIME: 2:38 PM PAGER/CONTACT #: [phone] Normal [facility] CBCon 10-11-2019 Erythrocyte distribution width (RBC) [Ratio] 15.8 % High 11.5-15.0 [facility] Comment on above: Performed By: #### C BC, BMP, MG1, PHOS ####[place] [phone] Hematocrit (Bld) [Volume fraction] 27.2 % Low 39.0-51.0 [facility] Comment on above: Performed By: #### C BC, BMP, MG1, PHOS ####[place] [phone] Hemoglobin (Bld) [Mass/Vol] 8.9 g/dL Low 13.0-17.0 [facility] Comment on above: Performed By: #### C BC, BMP, MG1, PHOS ####[place] [phone] MCH (RBC) [Entitic mass] 29.4 pG Normal 26.0-34.0 [facility] Comment on above: Performed By: #### C BC, BMP, MG1, PHOS ####[place] [phone] MCHC (RBC) [Mass/Vol] 32.7 g/dL Normal 30.5-36.0 [facility] Comment on above: Performed By: #### C BC, BMP, MG1, PHOS ####[place] [phone] MCV (RBC) [Entitic vol] 89.8 fL Normal 80.0-100.0 [facility] Comment on above: Performed By: #### C BC, BMP, MG1, PHOS ####[place] [phone] Platelet mean volume (Bld) [Entitic vol] 9.9 fL Normal 9.0-12.7 [facility] Comment on above: Performed By: #### C BC, BMP, MG1, PHOS ####[place] [phone] Platelets (Bld) [#/Vol] 140 10*3/uL Low 150-400 [facility] Comment on above: Performed By: #### C BC, BMP, MG1, PHOS ####[facility] [place], [place] [phone] RBC (Bld) [#/Vol] 3.03 10*6/uL Low 4.20-6.00 [facility] Comment on above: Performed By: #### C BC, BMP, MG1, PHOS ####[facility] [place] [phone] WBC (Bld) [#/Vol] 5.78 10*3/uL Normal 3.70-11.00 [facility] Comment on above: Performed By: #### C BC, BMP, MG1, PHOS ####[place] [id number] [place], [place] [phone] Magnesiumon 10-11-2019 Magnesium [Mass/Vol] 2.0 mg/dL Normal 1.7-2.6 [facility] Comment on above: Performed By: #### C BC, BMP, MG1, PHOS ####[address] [phone] NURSING PROGon 10-11-2019 NURSING PROG HNO ID: [id number] Author: Briana (Rn) ОЛЕГ Hardy Service: ? Author Type: Registered Nurse Type: Nursing Progress Note Filed: 10/11/2019 2:37 PM Note Text: Nursing Progress Note Patient Name: Pedro Pablo Sierra Patient Location: [id number]/[facility]0 [facility] __ Daily Note: 0700. Bedside report received from police shift commander RN. Patient is resting comfortably in bed [...] removed. 1408. Report called to RN on PK2C who will be resuming care of patient. 1430. Patient transferred to [facility] via bed on portable O2. All belongings and chart sent with patient. This note was completed by: Briana Hardy RN [facility] PROGRESSon 10-11-2019 PROGRESS HNO ID: [id number] Author: Noman Fish MD Service: Vascular Surgery [...] 1043 -- 10/08/19 1645 pneumatic compression stockings (wv,oh) VTE Prophylaxis: held for bleeding ALLERGIES No [...] CRISPIN stenting on 10/23, UC, CAD previous ME, DM, HTN, HLD, COPD Overall Course: 63 year old male with acute onset of BLE pain. Taken to OR for initiation of thrombolysis thru LCIA/TORITO Procedure/Surgeries: 1. Aortogram with bilateral ileofemoral runoff via left brachial artery 2. Left leg angiogram, 3rd order 3. Placement of lysis catheter from distal aorta to left SFA, 20cm treatment zone [facility] 07/02/2014 Thrombectomy Airway Difficulty: NA OR Course: [...] TIME: 7:24 AM PAGER/CONTACT #: See Below [id number] For questions Monday through Monday 6am to 6pm please page Red Team [phone] For questions during nights (6pm - 6am) and weekends, please contact the General Surgery Radio Electronics Technician pager, [phone] [facility] PROGRESS HNO ID: [id number] Author: Rashawn Huntley Service: Critical Care Author Type: Anesthesiologist Type: Progress Notes Filed: 10/11/2019 11:08 AM Note Text: SICU PROGRESS NOTE SERVICE DATE: 10/11/2019 SERVICE TIME: 6:40 AM POD #: 06/21 Subjective Interval events (last 24 hours) / [...] CURRENT MEDICATIONS: Medications reviewed. Please refer to [facility] for list of inpatient medications. Current Facility-Administered Medications Medication Dose Route Frequency Provider Last Rate Last Dose - potassium phosphate 15 mmol in NaCl 0.9% 250 mL 15 mmol INTRAVENOUS ONCE Libby (Res) Johnson 41.67 mL/hr at 10/11/19 0502 15 mmol at 10/11/19 0502 - calcium gluconate 2 g in NaCl 0.9% 100 mL 2 g INTRAVENOUS ONCE Libby (Res) Johnosn 100 mL/hr at 10/11/19 0631 2 g at 10/11/19 0631 - fentaNYL 50 mcg/mL 25 mcg injection (SUBLIMAZE) 25 mcg INTRAVENOUS q 2 H PRN Elly (Res) Trudy-Glenn[place] 25 mcg at 10/11/19 0648 - hyoscyamine sublingual 0.25 mg tab(s) (LEVSIN SL) 0.25 mg SUBLINGUAL AC and HS Misael (Res) MD Steffany - amLODIPine 5 mg tab(s) (NORVASC) 5 mg ORAL DAILY Misael (Azalea) MD Steffany 5 mg at 10/09/19 0755 - carBAMazepine XR 200 mg tab(s) (TEGretol XR) 200 mg ORAL BID Juliana (Pa) Akshat 200 mg at 10/10/19 2202 - insulin lispro injection (rapid acting) (HumaLOG) SUBCUTANEOUS w MEALS AND HS Juliana (Pa) Akshat - nicotine 21 mg/24 hr 1 Patch (NICODERM) 1 Patch TRANSDERMAL DAILY Juliana (Pa) Akshat 1 Patch at 10/10/19 0817 And - nicotine -- REMOVE patch OTHER DAILY Juliana (Pa) Akshat And - nicotine - verify patch OTHER q 8 H Juliana (Pa) Akshat - clopidogrel 75 mg tab(s) (PLAVIX) 75 mg ORAL DAILY Roman (Sewage Plant Supervisor) Heinly 75 mg at 10/10/19 0817 - [...] (DUONEB) 3 mL INHALATION QID Elly (Res) Chumakova-[place] 3 mL at 10/10/192046 - NaCl 0.9% iv infusion 100 mL/hr INTRAVENOUS CONTINUOUS Elly (Res) Chumakova-Jennifer 100 mL/hr at 10/10/191999 100 mL/hr at 10/10/19 2000 - NaCl 0.9% 3-5 mL 3-5 mL [...] 30 mL ORAL/FEEDING TUBE DAILY PRN Misael (Res) MD Steffany - acetaminophen 1,000 mg tab(s) (TYLENOL) 1,000 mg ORAL q 6 H Misael (Res) MD Steffany 1,000 mg at 10/10/19 0536 [...] 12.5 mg ORAL q 12 H Misael (Azalea) MD Steffany 12.5 mg at 10/10/19 2203 PERTINENT CULTURES: Cultures were reviewed. Pertinent cultures from this hospitalization are listed below. Plese refer to [facility] for a full listing of cultures obtained during this hospitalization. ? N/A DIAGNOSTIC TESTS: The following diagnostic tests/findings were reviewed: ? Most recent labs and imaging results. MOST RECENT CXR FINDINGS: Bibasilar atelectasis. OPERATIVE PROCEDURE(S): Date of surgery: 10/08/19 Procedure: Left common HAZMAT CDL A DRIVER endarterectomy with bovine path Left profundoplasty Left iliac stenting X4 (I-Cast X2, Jessica X2) Multiple angiograms with angioplasty Surgeon: Dr. May Date of surgery: 10/10/19 Procedure: Left EIA to HAZMAT CDL A DRIVER bypass with 7mm ringed PTFE end to end proximally to the previously placed bovine patch end to side distally. Completion angiogram Retrograde open RADHA angioplasty with 8 x 80 mustang balloon. Open thrombectomy L iliac artery by leg incision. Surgeon: Dr. May Assessment/Plan 69 year old male with CAD (EF 60% on 09/12/19), ME in 2005, HTN, HLD, COPD, PJ(on 2L O2 nocturnal), DM, GERD, diverticulosis, anxiety, depression, lupus anticoagulant disorder on Coumadin, chronic low back pain, aortoiliac and left ileofemoral PAD s/p multiple interventions including left femoral endarterectomy/aortoil iac stenting in 10/2013 who underwent a Redo left HAZMAT CDL A DRIVER endarterectomy, left profundoplasty, left iliac stenting with Dr. May on 10/08/19. She is admitted to SICU post-operatively for neurovascular checks and close hemodynamic monitoring. Developed L HAZMAT CDL A DRIVER occlusion POD2 and taken back to OR on 10/10/19 for left groin hematoma evacuation, left EIA to HAZMAT CDL A DRIVER PTFE bypass, left liac thrombectomy. Transferred to [...] -- 10/08/19 1700 activity - mobilize patient ([place]) 10/08/19 1645 pneumatic compression stockings ([place]) VTE Prophylaxis: Contraindicated elevated risk of bleeding To be seen and discussed on rounds with SICU staff: Dr. Huntley ICU Checklist --------- --- VTE Prophylaxis: SIGNATURE: Misael Jeter MD PATIENT NAME: Pedro Pablo Sierra DATE: October 11, 2019 TIME: 6:40 AM PAGER/CONTACT #: [phone] [facility] STAFF PHYSICIAN NOTE OF PERSONAL INVOLVEMENT [...] HTN GERD ? Procedure/Surgeon 10/08/19 S/P L HAZMAT CDL A DRIVER endarterectomy with bovine path, profundoplasty and iliac [...] DO 11:08 AM October 11, 2019 Normal [facility] Phosphoruson 10-11-2019 Phosphate [Mass/Vol] 1.9 mg/dL Low 2.5-4.5 [facility] Comment on above: Performed By: #### C BC, BMP, MG1, PHOS ####[address] [phone] Protimeon 10-11-2019 PT Coag (PPP) [Time] 10.9 s Normal 9.7-13.0 [facility] Comment on above: Performed By: #### P T ####[address] [phone] PT Coag (PPP) [Time] 1.0 s Normal 0.9-1.3 [facility] Comment on above: Result Comment: Teri min K Antagonist (VKA) Therapeutic Range: INR 2 to 3 (Target INR of 2.5) Note: For patients treated with VKA drugs, such as warfarin, the [employer] 2012 Guideline recommends [...] Chest 2012, 141:7S-47S Gio RA, et al. [facility] 2017, 70: 252-289 Performed By: #### P T ####[place] [address] [place], [place] [phone] THERAPY NTon 10-11-2019 THERAPY NT HNO ID: [id number] Author: Gini (Pt) Eugenia Melvin Service: Physical Therapy Author Type: Physical Therapist Type: Therapy (PT/OT/Speech/Resp) Filed: 10/11/2019 10:43 AM Note Text: Physical Therapy Treatment SERVICE DATE: 10/11/2019 SERVICE TIME: 934 to 1019 ROOM: [id number] Recommended Discharge Disposition: Home PT Anticipated Discharge [...] Diagnosis: Reduced mobility-other Interventions Provided: Therapeutic Activity (35982);Therapeutic Exercise (71257);Gait Training (68307) Therapeutic Exercise (41852) Treatment Minutes: 15 1 unit Skilled Intervention(s): Instruction in therapeutic exercise supine, very gentle with Daisha JOHNSON. Edu on rationale of exercises. Therapeutic Activity (26575) Treatment Minutes: 20 1 unit Skilled Intervention(s): Instructed patient in supine to sit pushing with upper extremities to sit up Instructed patient in supine to and from sit pushing with upper extremities to sit up Instruction in sit to stand technique with proper hand placement and body positioning at edge of bed/chair Gait Training (80318) Treatment Minutes: 10 1 unit Skilled Intervention(s): Instruction in sequencing, gait pattern and Instruction in correction of gait deviations Total Timed Code Treatment Minutes: 45 Total Treatment Time (minutes): 45 SUBJECTIVE: Current Hospital Course: Chart reviewed and no significant medical updates relevant to therapy were noted Reason for Physical Therapy Consult : PVD s/p L LE redo HAZMAT CDL A DRIVER endarterectomy, L profundoplasty, iliac stenting on 10/08/19 Relevant Past Medical History: S/p L femoral endarterectomy/aoroili ac stenting Patient Report: My Left leg is incredibly sore right now, moving is going to have to be slow. (And it is.) Home Environment Patient Lives With: Self/Alone Assistance Available: rehabilitation nurse Entry To Home: Stairs;Other: See Comment(stair lift) [...] to maintain balance while turning head/trunk -HLM: 5: Standing (1 or more minutes) Please see discipline specific clinical documentation flowsheet for complete details for this therapy evaluation/treatment. SIGNATURE: Gini Melvin PT PATIENT NAME: Pedro Pablo Sierra DATE: October 11, 2019 TIME: 10:40 AM Normal [facility] THERAPY NT HNO ID: [id number] Author: Caitlin Flanagan) William Service: Occupational Therapy Author Type: Occupational Therapist Type: Therapy (PT/OT/Speech/Resp) Filed: 10/11/2019 6:48 AM Note Text: OCCUPATIONAL THERAPY MISSED VISIT SERVICE DATE: 10/11/2019 SERVICE TIME: 646 to 06 ROOM: [place] [address] Attempted Treatment. Patient not seen due to Incomplete Orders. Pt is currently on bedrest. Please update activity orders when medically appropriate for participation in Occupational Therapy treatment and out of bed mobility. Thank you. SIGNATURE: Caitlin Thomas OTR/L PATIENT NAME: Pedro Pablo Sierra DATE: October 11, 2019 TIME: 6:47 AM Normal [facility] ABG Complete Eval FOR SEFERINO Kauffman 10-10-2019 Base Excess 1 mmol/L Normal [facility] Comment on above: Result Comment: -3 t o 3 Performed By: #### A BGRTC ####[facility] [place], [place] [phone] Calcium [Mass/Vol] 1.29 mmol/L Normal 1.15-1.35 [facility] Comment on above: Performed By: #### A BGRTC ####[facility] [place], [place] [phone] Carboxyhemoglobin,Art 1.0 % Normal <2.0 [facility] Comment on above: Performed By: #### A BGRTC ####[place] [phone] Chloride, Whole Bld FOR WEST USE ONLY 105 mmol/L Normal 98-107 [facility] Comment on above: Performed By: #### A BGRTC ####[place] [phone] CO2 [Moles/Vol] 27 mmol/L Normal 22.0-28.0 [facility] Comment on above: Performed By: #### A BGRTC ####[place] [phone] Glucose [Mass/Vol] 132 mg/dL High 65-100 [facility] Comment on above: Performed By: #### A BGRTC ####[place] [phone] HCO3 (Bld) [Moles/Vol] 26 mmol/L Normal 22-26 [facility] Comment on above: Performed By: #### A BGRTC ####[place] [phone] Hematocrit (Bld) [Volume fraction] 26.3 % Low 42.0-52.0 [facility] Comment on above: Performed By: #### A BGRTC ####[place] [phone] Hemoglobin (Bld) [Mass/Vol] 8.5 g/dL Low 14-18 [facility] Comment on above: Performed By: #### A BGRTC ####[place] [phone] Lactate [Moles/Vol] 1.5 mmol/L Normal 0.4-2.0 [facility] Comment on above: Performed By: #### A BGRTC ####[place] [phone] Methemoglobin 1.4 % Normal 0.4-1.5 [facility] Comment on above: Performed By: #### A BGRTC ####[place] [phone] O2 Administered 21.0 Normal [facility] Comment on above: Performed By: #### A BGRTC ####[place] [phone] Oxygen (Bld) [Partial pressure] 136 mm Hg High 80-100 [facility] Comment on above: Performed By: #### A BGRTC ####[place] [phone] Oxygen (Bld) [Partial pressure] 99 % High 90-98 [facility] Comment on above: Performed By: #### A BGRTC ####[place] [phone] Oxyhemoglobin, Art. 96 % Normal 94-100 [facility] Comment on above: Performed By: #### A BGRTC ####[place] [phone] pCO2 46 mm Hg Normal 35-48 [facility] Comment on above: Performed By: #### A BGRTC ####[place] [phone] pH (Bld) 7.37 [pH] Normal 7.35-7.45 [facility] Comment on above: Performed By: #### A BGRTC ####[place] [phone] PO2FI FOR WEST USE ONLY 648 mmHG High 400-500 [facility] Comment on above: Performed By: #### A BGRTC ####[place] [phone] Potassium [Moles/Vol] 3.9 mmol/L Normal 3.5-5.0 [facility] Comment on above: Performed By: #### A BGRTC ####[place] [phone] Sodium [Moles/Vol] 137 mmol/L Normal 135-145 [facility] Comment on above: Performed By: #### A BGRTC ####[place] [phone] Base Excess 2 mmol/L Normal [facility] Comment on above: Result Comment: -3 t o 3 Performed By: #### A BGRTC ####[place] [phone] Calcium [Mass/Vol] 1.09 mmol/L Low 1.15-1.35 [facility] Comment on above: Performed By: #### A BGRTC ####[place] [phone] Carboxyhemoglobin,Art 1.3 % Normal <2.0 [facility] Comment on above: Performed By: #### A BGRTC ####[place] [phone] Chloride, Whole Bld FOR WEST USE ONLY 106 mmol/L Normal 98-107 [facility] Comment on above: Performed By: #### A BGRTC ####[place] [phone] CO2 [Moles/Vol] 28 mmol/L Normal 22.0-28.0 [facility] Comment on above: Performed By: #### A BGRTC ####[place] [phone] Glucose [Mass/Vol] 129 mg/dL High 65-100 [facility] Comment on above: Performed By: #### A BGRTC ####[place] [phone] HCO3 (Bld) [Moles/Vol] 27 mmol/L High 22-26 [facility] Comment on above: Performed By: #### A BGRTC ####[place] [phone] Hematocrit (Bld) [Volume fraction] 24.6 % Low 42.0-52.0 [facility] Comment on above: Performed By: #### A BGRTC ####[place] [phone] Hemoglobin (Bld) [Mass/Vol] 7.9 g/dL Low 14-18 [facility] Comment on above: Performed By: #### A BGRTC ####[place] [phone] Lactate [Moles/Vol] 1.1 mmol/L Normal 0.4-2.0 [facility] Comment on above: Performed By: #### A BGRTC ####[place] [phone] Methemoglobin 1.2 % Normal 0.4-1.5 [facility] Comment on above: Performed By: #### A BGRTC ####[place] [phone] O2 Administered 21.0 Normal [facility] Comment on above: Performed By: #### A BGRTC ####[place] [phone] Oxygen (Bld) [Partial pressure] 164 mm Hg High 80-100 [facility] Comment on above: Performed By: #### A BGRTC ####[place] [phone] Oxygen (Bld) [Partial pressure] 99 % High 90-98 [facility] Comment on above: Performed By: #### A BGRTC ####[place] [phone] Oxyhemoglobin, Art. 97 % Normal 94-100 [facility] Comment on above: Performed By: #### A BGRTC ####[place] [phone] pCO2 44 mm Hg Normal 35-48 [facility] Comment on above: Performed By: #### A BGRTC ####[place] [phone] pH (Bld) 7.40 [pH] Normal 7.35-7.45 [facility] Comment on above: Performed By: #### A BGRTC ####[place] [id number] [place], [place] [phone] PO2FI FOR WEST USE ONLY 781 mmHG High 400-500 [facility] Comment on above: Performed By: #### A BGRTC ####[address] [phone] Potassium [Moles/Vol] 3.6 mmol/L Normal 3.5-5.0 [facility] Comment on above: Performed By: #### A BGRTC ####[address] [phone] Sodium [Moles/Vol] 137 mmol/L Normal 135-145 [facility] Comment on above: Performed By: #### A BGRTC ####[address] [phone] ALLIED HEALTHon 10-10-2019 ALLIED HEALTH HNO ID: [id number] Author: Judie NessRtWilliam Amaya Service: Radiology Author Type: Manager Business Systems Type: Allied Health Filed: 10/10/2019 6:31 AM [...] RT Víctor October 10, 2019 6:31 AM Normal [facility] ANES PRE-OPon 10-10-2019 ANES PRE-OP HNO ID: [id number] Author: Joey Sequeira Service: ? Author Type: [...] (+) Hypertension (+) PVD (peripheral vascular disease) ([facility]) (+) s/p left femoral endarterectomy/aortoil iac stenting 10/08/2019 (now with L HAZMAT CDL A DRIVER occlusion) PULMONARY (+) COPD (chronic obstructive pulmonary disease) ([facility]) (+) PJ (obstructive sleep apnea) ANESTHESIA (+) PJ (obstructive sleep apnea) NEURO-PSYCH (+) Headache GI (+) GERD (gastroesophageal reflux disease) Other (+) Anemia due to acute blood loss (Hgb 7.4 this AM; will order 2 units PRBCs) (+) Lupus anticoagulant disorder ([facility]) I - PHYSICAL EVALUATION AIRWAY Patient intubated: [...] (iso-osmotic) 100 mL (ANCEF) 2 g INTRAVENOUS Radio Electronics Technician to OR - NaCl 0.9% iv infusion [...] movements. - COMPOUNDED PRESCRIPTION Aerosol supplies Dx:J44.1 NPI#[id number] - ipratropium-albuterol (DUONEB) 0.5 mg-3 mg(2.5 mg [...] October 10, 2019 TIME: 8:21 AM CSN: [id number] Normal [facility] APTTon 10-10-2019 aPTT Coag (Bld) [Time] 25.4 s Normal 23.0-32.4 [facility] Comment on above: Result Comment: Unfr actionated [...] laboratory APTT reagent in use throughout the [facility]. Performed By: #### C BCDIF, PTT, FIBCT, PT ####[facility] [place], [place] [phone] aPTT Coag (Bld) [Time] 126.3 s High 23.0-32.4 [facility] Comment on above: Result Comment: Unfr actionated [...] laboratory APTT reagent in use throughout the [facility]. Called to and read back by: Landry Quintana RN [facility] 10/10/19 [facility] Performed By: #### C BCDIF, BMP, MG1, PHOS, PTT, PT ####[facility] [place], [place] [phone] aPTT Coag (Bld) [Time] 44.1 s High 23.0-32.4 [facility] Comment on above: Result Comment: Unfr actionated [...] laboratory APTT reagent in use throughout the [facility]. Performed By: #### P TT ####[facility] [place], [place] [phone] Basic Metabolic Panlon 10-09 Anion gap [Moles/Vol] 11 mmol/L Normal 9-18 [facility] Comment on above: Performed By: #### C BCDIF, BMP, MG1, PHOS, PTT, PT ####[place] [phone] Calcium [Mass/Vol] 8.0 mg/dL Low 8.5-10.5 [facility] Comment on above: Performed By: #### C BCDIF, BMP, MG1, PHOS, PTT, PT ####[place] [phone] Chloride [Moles/Vol] 103 mmol/L Normal 98-110 [facility] Comment on above: Performed By: #### C BCDIF, BMP, MG1, PHOS, PTT, PT ####[place] [phone] CO2 [Moles/Vol] 24 mmol/L Normal 23-32 [facility] Comment on above: Performed By: #### C BCDIF, BMP, MG1, PHOS, PTT, PT ####[place] [phone] Creatinine [Mass/Vol] 0.68 mg/dL Low 0.70-1.40 [facility] Comment on above: Performed By: #### C BCDIF, BMP, MG1, PHOS, PTT, PT ####[place] [phone] eGFR- Amer. >60 Normal >60 [facility] Comment on above: Performed By: #### C BCDIF, BMP, MG1, PHOS, PTT, PT ####[place] [phone] GFR/1.73 sq M predicted among non-blacks MDRD (S/P/Bld) [Vol rate/Area] mL/min/{1.73_m2} Normal >60 [facility] Comment on above: Performed By: #### C BCDIF, BMP, MG1, PHOS, PTT, PT ####[place] [phone] Glucose [Mass/Vol] 127 mg/dL High 65-100 [facility] Comment on above: Performed By: #### C BCDIF, BMP, MG1, PHOS, PTT, PT ####[place] [phone] Potassium [Moles/Vol] 4.3 mmol/L Normal 3.5-5.0 [facility] Comment on above: Performed By: #### C BCDIF, BMP, MG1, PHOS, PTT, PT ####[place] [phone] Sodium [Moles/Vol] 138 mmol/L Normal 135-146 [facility] Comment on above: Performed By: #### C BCDIF, BMP, MG1, PHOS, PTT, PT ####[place] [phone] Urea nitrogen [Mass/Vol] 9 mg/dL Low 10-25 [facility] Comment on above: Performed By: #### C BCDIF, BMP, MG1, PHOS, PTT, PT ####[place] [phone] Anion gap [Moles/Vol] 8 mmol/L Low 9-18 [facility] Comment on above: Performed By: #### C BC, BMP, MG1, PHOS ####[place] [phone] Calcium [Mass/Vol] 7.9 mg/dL Low 8.5-10.5 [facility] Comment on above: Performed By: #### C BC, BMP, MG1, PHOS ####[place] [phone] Chloride [Moles/Vol] 101 mmol/L Normal 98-110 [facility] Comment on above: Performed By: #### C BC, BMP, MG1, PHOS ####[place] [phone] CO2 [Moles/Vol] 27 mmol/L Normal 23-32 [facility] Comment on above: Performed By: #### C BC, BMP, MG1, PHOS ####[place] [phone] Creatinine [Mass/Vol] 0.69 mg/dL Low 0.70-1.40 [facility] Comment on above: Performed By: #### C BC, BMP, MG1, PHOS ####[place] [phone] eGFR- Amer. >60 Normal >60 [facility] Comment on above: Performed By: #### C BC, BMP, MG1, PHOS ####[place] [phone] GFR/1.73 sq M predicted among non-blacks MDRD (S/P/Bld) [Vol rate/Area] mL/min/{1.73_m2} Normal >60 [facility] Comment on above: Performed By: #### C BC, BMP, MG1, PHOS ####[place] [phone] Glucose [Mass/Vol] 107 mg/dL High 65-100 [facility] Comment on above: Performed By: #### C BC, BMP, MG1, PHOS ####[place] [phone] Potassium [Moles/Vol] 3.8 mmol/L Normal 3.5-5.0 [facility] Comment on above: Performed By: #### C BC, BMP, MG1, PHOS ####[place] [phone] Sodium [Moles/Vol] 136 mmol/L Normal 135-146 [facility] Comment on above: Performed By: #### C BC, BMP, MG1, PHOS ####[place] [phone] Urea nitrogen [Mass/Vol] 11 mg/dL Normal 10-25 [facility] Comment on above: Performed By: #### C BCKATHY, MG1, PHOS ####[place] [phone] CASE MANAGEMon 10-10-2019 CASE MANAGEM HNO ID: [id number] Author: Bri NessRn) ОЛЕГ Swann Service: Case Management Author Type: [...] 10, 2019 TIME: 4:23 PM PAGER/CONTACT #: [phone] Normal [facility] CBCon 10-10-2019 Erythrocyte distribution width (RBC) [Ratio] 16.0 % High 11.5-15.0 [facility] Comment on above: Performed By: #### C BC, KATHY, MG1, PHOS ####[place] [phone] Hematocrit (Bld) [Volume fraction] 23.2 % Low 39.0-51.0 [facility] Comment on above: Performed By: #### C BC, BMP, MG1, PHOS ####[place] [phone] [place] [phone] Hemoglobin (Bld) [Mass/Vol] 7.5 g/dL Low 13.0-17.0 [facility] Comment on above: Performed By: #### C BC, BMP, MG1, PHOS ####[place] [phone] MCH (RBC) [Entitic mass] 30.1 pG Normal 26.0-34.0 [facility] Comment on above: Performed By: #### C BC, BMP, MG1, PHOS ####[place] [phone] MCHC (RBC) [Mass/Vol] 32.3 g/dL Normal 30.5-36.0 [facility] Comment on above: Performed By: #### C BC, BMP, MG1, PHOS ####[place] [phone] MCV (RBC) [Entitic vol] 93.2 fL Normal 80.0-100.0 [facility] Comment on above: Performed By: #### C BC, BMP, MG1, PHOS ####[place] [phone] Platelet mean volume (Bld) [Entitic vol] 9.8 fL Normal 9.0-12.7 [facility] Comment on above: Performed By: #### C BC, BMP, MG1, PHOS ####[place] [phone] Platelets (Bld) [#/Vol] 180 10*3/uL Normal 150-400 [facility] Comment on above: Performed By: #### C BC, BMP, MG1, PHOS ####[place] [phone] RBC (Bld) [#/Vol] 2.49 10*6/uL Low 4.20-6.00 [facility] Comment on above: Performed By: #### C BC, BMP, MG1, PHOS ####[place] [phone] WBC (Bld) [#/Vol] 6.64 10*3/uL Normal 3.70-11.00 [facility] Comment on above: Performed By: #### C BC, BMP, MG1, PHOS ####[place] [phone] CBC and Differentialon 04-23 -2020 Abs Baso 0.03 k/uL Normal <0.11 [facility] Comment on above: Performed By: #### C BCDIF, PTT, FIBCT, PT ####[place] [phone] Abs [place] 0.69 k/uL Normal <0.87 [facility] Comment on above: Performed By: #### C BCDIF, PTT, FIBCT, PT ####[place] [phone] Abs Neut 5.56 k/uL Normal 1.45-7.50 [facility] Comment on above: Performed By: #### C BCDIF, PTT, FIBCT, PT ####[place] [phone] Basophils/100 WBC (Bld) 0.4 % Normal [facility] Comment on above: Performed By: #### C BCDIF, PTT, FIBCT, PT ####[place] [phone] Eosinophils (Bld) [#/Vol] 10*3/uL Normal <0.46 [facility] Comment on above: Performed By: #### C BCDIF, PTT, FIBCT, PT ####[place] [phone] Eosinophils/100 WBC (Bld) 0.3 % Normal [facility] Comment on above: Performed By: #### C BCDIF, PTT, FIBCT, PT ####[place] [phone] Erythrocyte distribution width (RBC) [Ratio] 16.9 % High 11.5-15.0 [facility] Comment on above: Performed By: #### C BCDIF, PTT, FIBCT, PT ####[place] [phone] Hematocrit (Bld) [Volume fraction] 21.7 % Low 39.0-51.0 [facility] Comment on above: Performed By: #### C BCDIF, PTT, FIBCT, PT ####[place] [phone] Hemoglobin (Bld) [Mass/Vol] 7.1 g/dL Low 13.0-17.0 [facility] Comment on above: Performed By: #### C BCDIF, PTT, FIBCT, PT ####[place] [phone] Lymphocytes (Bld) [#/Vol] 1.03 10*3/uL Normal 1.00-4.00 [facility] Comment on above: Performed By: #### C BCDIF, PTT, FIBCT, PT ####[place] [phone] Lymphocytes/100 WBC (Bld) 14.1 % Normal [facility] Comment on above: Performed By: #### C BCDIF, PTT, FIBCT, PT ####[place] [phone] MCH (RBC) [Entitic mass] 29.5 pG Normal 26.0-34.0 [facility] Comment on above: Performed By: #### C BCDIF, PTT, FIBCT, PT ####[place] [phone] MCHC (RBC) [Mass/Vol] 32.7 g/dL Normal 30.5-36.0 [facility] Comment on above: Performed By: #### C BCDIF, PTT, FIBCT, PT ####[place] [phone] MCV (RBC) [Entitic vol] 90.0 fL Normal 80.0-100.0 [facility] Comment on above: Performed By: #### C BCDIF, PTT, FIBCT, PT ####[place] [phone] Monocytes/100 WBC (Bld) 9.4 % Normal [facility] Comment on above: Performed By: #### C BCDIF, PTT, FIBCT, PT ####[place] [phone] Neutrophils/100 WBC (Bld) 75.8 % Normal [facility] Comment on above: Performed By: #### C BCDIF, PTT, FIBCT, PT ####[place] [phone] Platelet mean volume (Bld) [Entitic vol] 10.0 fL Normal 9.0-12.7 [facility] Comment on above: Performed By: #### C BCDIF, PTT, FIBCT, PT ####[place] [phone] Platelets (Bld) [#/Vol] 167 10*3/uL Normal 150-400 [facility] Comment on above: Performed By: #### C BCDIF, PTT, FIBCT, PT ####[place] [address] RBC (Bld) [#/Vol] 2.41 10*6/uL Low 4.20-6.00 [facility] Comment on above: Performed By: #### C BCDIF, PTT, FIBCT, PT ####[place] [address] WBC (Bld) [#/Vol] 7.33 10*3/uL Normal 3.70-11.00 [facility] Comment on above: Performed By: #### C BCDIF, PTT, FIBCT, PT ####[address] Abs Baso 0.04 k/uL Normal <0.11 [facility] Comment on above: Performed By: #### C BCDIF, BMP, MG1, PHOS, PTT, PT ####[place] [phone] Abs [place] 0.56 k/uL Normal <0.87 [facility] Comment on above: Performed By: #### C BCDIF, BMP, MG1, PHOS, PTT, PT ####[place] [address] Abs Neut 5.40 k/uL Normal 1.45-7.50 [facility] Comment on above: Performed By: #### C BCDIF, BMP, MG1, PHOS, PTT, PT ####[place] [address] Basophils/100 WBC (Bld) 0.6 % Normal [facility] Comment on above: Performed By: #### C BCDIF, BMP, MG1, PHOS, PTT, PT ####[place] [address] DTYPE Auto Diff Normal [facility] Comment on above: Performed By: #### C BCDIF, PTT, FIBCT, PT ####[place] [phone] Performed By: #### C BCDIF, BMP, MG1, PHOS, PTT, PT ####[place] [address] Eosinophils (Bld) [#/Vol] 0.06 10*3/uL Normal <0.46 [facility] Comment on above: Performed By: #### C BCDIF, BMP, MG1, PHOS, PTT, PT ####[place] [address] Eosinophils/100 WBC (Bld) 0.8 % Normal [facility] Comment on above: Performed By: #### C BCDIF, BMP, MG1, PHOS, PTT, PT ####[place] [address] Erythrocyte distribution width (RBC) [Ratio] 16.6 % High 11.5-15.0 [facility] Comment on above: Performed By: #### C BCDIF, BMP, MG1, PHOS, PTT, PT ####[place] [address] Hematocrit (Bld) [Volume fraction] 24.9 % Low 39.0-51.0 [facility] Comment on above: Performed By: #### C BCDIF, BMP, MG1, PHOS, PTT, PT ####[place] [phone] Hemoglobin (Bld) [Mass/Vol] 8.3 g/dL Low 13.0-17.0 [facility] Comment on above: Performed By: #### C BCDIF, BMP, MG1, PHOS, PTT, PT ####[place] [phone] Lymphocytes (Bld) [#/Vol] 1.07 10*3/uL Normal 1.00-4.00 [facility] Comment on above: Performed By: #### C BCDIF, BMP, MG1, PHOS, PTT, PT ####[place] [phone] Lymphocytes/100 WBC (Bld) 15.0 % Normal [facility] Comment on above: Performed By: #### C BCDIF, BMP, MG1, PHOS, PTT, PT ####[place] [phone] MCH (RBC) [Entitic mass] 30.3 pG Normal 26.0-34.0 [facility] Comment on above: Performed By: #### C BCDIF, BMP, MG1, PHOS, PTT, PT ####[place] [phone] MCHC (RBC) [Mass/Vol] 33.3 g/dL Normal 30.5-36.0 [facility] Comment on above: Performed By: #### C BCDIF, BMP, MG1, PHOS, PTT, PT ####[place] [phone] MCV (RBC) [Entitic vol] 90.9 fL Normal 80.0-100.0 [facility] Comment on above: Performed By: #### C BCDIF, BMP, MG1, PHOS, PTT, PT ####[place] [phone] Monocytes/100 WBC (Bld) 7.9 % Normal [facility] Comment on above: Performed By: #### C BCDIF, BMP, MG1, PHOS, PTT, PT ####[place] [phone] Neutrophils/100 WBC (Bld) 75.7 % Normal [facility] Comment on above: Performed By: #### C BCDIF, BMP, MG1, PHOS, PTT, PT ####[place] [phone] Platelet mean volume (Bld) [Entitic vol] 9.8 fL Normal 9.0-12.7 [facility] Comment on above: Performed By: #### C BCDIF, BMP, MG1, PHOS, PTT, PT ####[place] [phone] Platelets (Bld) [#/Vol] 173 10*3/uL Normal 150-400 [facility] Comment on above: Performed By: #### C BCDIF, BMP, MG1, PHOS, PTT, PT ####[place] [phone] RBC (Bld) [#/Vol] 2.74 10*6/uL Low 4.20-6.00 [facility] Comment on above: Performed By: #### C BCDIF, BMP, MG1, PHOS, PTT, PT ####[place] [phone] WBC (Bld) [#/Vol] 7.13 10*3/uL Normal 3.70-11.00 [facility] Comment on above: Performed By: #### C BCDIF, BMP, MG1, PHOS, PTT, PT ####[place] [phone] Fibrinogenon 10-10-2019 Fibrinogen 410 mg/dL High 200-400 [facility] Comment on above: Performed By: #### C BCDIF, PTT, FIBCT, PT ####[place] [phone] HISTORY PHYSICALon 0 HISTORY PHYSICAL HNO ID: [id number] Author: Ryan May MD Service: Vascular Surgery Author Type: Physician Type: HANDP Filed: 10/10/2019 9:03 AM Note Text: As a result of the 09/03/19 order by [facility] Director Libby Harris M.D. to cancel non-essential surgeries that would use PPE, unless special criteria are met, I have reviewed the clinical record for this patient and have determined that the scheduled procedure meets the criteria to go forward because there is a threat of permanent dysfunction of an extremity or organ system. Possible thrombosis of the left HAZMAT CDL A DRIVER graft. Possible hematoma. Plan to reexplore, evacuate hematoma, possible ileo-femoral bypass vs fem-fem bypass. Jermaine May MD Normal [facility] Hematocriton 10-10-2019 Hematocrit (Bld) [Volume fraction] 23.1 % Low 39.0-51.0 [facility] Comment on above: Performed By: #### H CT, HGB ####[phone] Hemoglobinon 10-10-2019 Hemoglobin (Bld) [Mass/Vol] 7.4 g/dL Low 13.0-17.0 [facility] Comment on above: Performed By: #### H CT, HGB ####[phone] Magnesiumon 10-10-2019 Magnesium [Mass/Vol] 1.8 mg/dL Normal 1.7-2.6 [facility] Comment on above: Performed By: #### C BCDIF, BMP, MG1, PHOS, PTT, PT ####[place] [phone] Magnesium [Mass/Vol] 2.0 mg/dL Normal 1.7-2.6 [facility] Comment on above: Performed By: #### C BC, BMP, MG1, PHOS ####[facility] [place], [place] [phone] NURSING PROGon 10-10-2019 NURSING PROG HNO ID: [id number] Author: Yeimi NessRn) Marvin, ОЛЕГ Service: ? Author Type: Registered Nurse Type: Nursing Progress Note Filed: 10/11/2019 7:38 AM Note Text: Nursing Progress Note Patient Name: Pedro Pablo Sierra Patient Location: [id number]/[facility] __ Daily Note: 1900 Received bedside report from Josse AHUJA. 1999 Assessment complete. Please see all flowsheets. 2100 2 units of blood ordered per Dr. Johnson. 2199 Started 1 unit of PRBC per order. 0 Dr. Johnson and hot metal charger Daphney rounding on pt. SBAR given. New orders received. 2214 Spoke [id number] with Dr. Johnson. Okay to go by cuff pressure. 5 Started 1 unit of PRBC per order. 0000 Reassessment complete. Please see all flowsheets. 0130 Dr. Johnson at bedside. SBAR given. Per Dr. Johnson, draw AM labs at 0330. 0400 Reassessment complete. Please see all flowsheets. 0715 Bedside report given to Briana AHUJA. Normal [facility] NURSING PROG HNO ID: [id number] Author: Fran NessRn) ОЛЕГ Quintana Service: Critical Care Author Type: Registered Nurse Type: Nursing Progress Note Filed: 10/10/2019 7:55 PM Note Text: Nursing Progress Note Patient Name: Pedro Pablo Sierra Patient Location: [id number]/[facility] - __ Daily Note: 0800: Full assessment complete. 0810: Talking with Misael, who would like amlodipine held this AM, okay to give metoprolol, and okayed by vascular surgery resident to give plavix. 0830: OR team at bedside. SBAR report. Plan to give cefazolin and PRBCs in OR. [phone]: On the phone with Joseph (pt's ex-) who is concerned because she was not updated on when pt went to surgery and is not getting updates like before via text. Joseph is also stating that she signed papers at [facility] recently transfering Health Care POA into her name. Last AD is from 2013 with Michelle (daughter) as POA. 1042: Page to case management [facility] 245 in [place] Mr. Sierra [id number]: Ania (pt's ex-) states that she submitted papers recently while at [facility] that she is healthcare POA. Last AD I see is 2013 that has Michelle Richmond (pt's daughter) as POA. -Josse AHUJA [id number]: pT disoriented to self and time emerging from anesthesia. 1620: Pt calling talent acquisition administrator light stating he is bleeding. Upon assessment, blood seeping gown and chucks pad under pt. Pressure applied to L groin sight. Page to Dr. Jeter (resident engineer). 1621: Dr. Jeter at bedside, assuming full [...] elivated ptt. 1900: Bedside report given to kobe AHUJA. This note was completed by: Fran Quintana RN [facility] NURSING PROG HNO ID: [id number] Author: Chrystal NessRn) ОЛЕГ Jacob Service: Critical Care Author Type: Registered Nurse Type: Nursing Progress Note Filed: 10/10/2019 6:32 AM Note Text: Nursing Progress Note Patient Name: Pedro Pablo Sierra Patient Location: [id number] - __ Daily Note: 1900: Bedside handoff received from ОЛЕГ Patel. Patient resting in bed, Heparin gtt verified. Pulses dual checked 1999: Full assessment completed. See doc flowsheets. 0000: Reassessment completed. Pulses still present via dopplar. 0400: Reassessment completed. See doc flowsheets. 0545: Patient pulled out IV. Reduced access. Dr. Moody aware. IV fluids stopped. This note was completed by: Chrystal Jacob RN [facility] OPERATIVE NOon 10-10-2019 OPERATIVE NO HNO ID: [id number] Author: Ryan May MD Service: Vascular Surgery Author Type: Physician Type: Operative Report Filed: 10/10/2019 1:51 PM Note Text: OPERATIVE/PROCEDURE REPORT LOG ID: [id number] Surgery/Procedure Date: 10/10/2019 Incision/Procedure Start Time:9:52 AM Incision Close/Procedure End Time: 13:49 Surgeon(s)/Procedurali st(s) and Risk Control Officer(s): Surgeon(s) and Role: * Ryan May MD - Primary * Elly (Binu Brown - Resident - Assisting No Additional Staff Anesthesia: General Procedure(s): Left EIA to HAZMAT CDL A DRIVER bypass with 7mm ringed PTFE end to [...] to side to the patch. The proximal HAZMAT CDL A DRIVER was clamped with four orange clips. Flow [...] DATE: 10/10/2019 TIME: 1:40 PM PAGER/CONTACT #: [facility] PROGRESSon 10-10-2019 PROGRESS HNO ID: [id number] Author: Elly (Binu Brown Service: Vascular Surgery [...] (iso-osmotic) 100 mL (ANCEF) 2 g INTRAVENOUS Radio Electronics Technician to OR - NaCl 0.9% iv infusion [...] 1604 -- 10/08/19 1645 pneumatic compression stockings (wv,oh) VTE Prophylaxis: on hep gtt ALLERGIES No [...] hematoma evacuation, possible thrombectomy, possible fem/fem. 2U talent acquisition administrator to OR Ok to cont. AC Ancef talent acquisition administrator to OR HOSPITALIZATION(S) Indication for admission/procedure: BLE pain Important/Relevant PMH/PSH: s/p left femoral endarterectomy with patch, US guided access RCFA, L profundaplasty, RUFUS recanalization AND stenting, CRISPIN stenting on 10/23, UC, CAD previous ME, DM, HTN, HLD, COPD Overall Course: 63 year old male with acute onset of BLE pain. Taken to OR for initiation of thrombolysis thru LCIA/TORITO Procedure/Surgeries: 1. Aortogram with bilateral ileofemoral runoff via left brachial artery 2. Left leg angiogram, 3rd order 3. Placement of lysis catheter from distal aorta to left SFA, 20cm treatment zone [facility] 07/02/2014 Thrombectomy Airway Difficulty: NA OR Course: [...] 10, 2019 TIME: 7:50 AM PAGER/CONTACT #: [phone] [facility] PROGRESS HNO ID: [id number] Author: Rashawn Huntley Service: Critical Care Author [...] CURRENT MEDICATIONS: Medications reviewed. Please refer to [facility] for list of inpatient medications. Current Facility-Administered Medications Medication Dose Route Frequency Provider Last Rate Last Dose - amLODIPine 5 mg tab(s) (NORVASC) 5 mg ORAL DAILY Misael (Res) MD Steffany 5 mg at 10/09/19 0755 - carBAMazepine XR 200 mg tab(s) (TEGretol XR) 200 mg ORAL BID Rashawn Petersonrick 200 mg at 10/09/192123 - insulin lispro [...] GLYCOLAX) 17 g ORAL DAILY PRN Roman Fermininhenry - docusate sodium 100 mg cap(s) (COLACE) 100 mg ORAL BID Roman Bello Heinly 100 mg at 10/09/192123 - budesonide 0.25 mg/2 mL 0.25 mg (PULMICORT) 0.25 mg INHALATION BID Juliana (Yariel) Akshat 0.25 mg at 10/09/191901 And - ipratropium-albuterol 3 mL nebulizer solution (DUONEB) 3 mL INHALATION QID Juliana (Yariel) Akshat 3 mL at 10/09/191901 - heparin iv infusion (LOW DOSE ACS/NOMOGRAM) 25,000 units in NaCl 0.45% 250 mL PREMIX 0-3,000 Units/hr INTRAVENOUS CONTINUOUS Misael (Res) Padiadpu, MD 11 mL/hr at 10/10/19 0012 1,100 Units/hr at 10/10/19 0012 And - heparin RATE CHANGE bolus 1,000-4,000 Units for subtherapeutic aptt results 1,000-4,000 Units INTRAVENOUS PRN Misael Jeter MD 2,400 Units at 10/10/19 0012 - ceFAZolin iv piggyback 2 g in D5W (iso-osmotic) 100 mL (ANCEF) 2 g INTRAVENOUS Radio Electronics Technician to OR Juliana (Yariel) Akshat - NaCl 0.9% iv infusion 100 mL/hr INTRAVENOUS CONTINUOUS Misael Jeter MD Stopped at 10/10/19 0500 - fentaNYL 50 mcg/mL 25 mcg injection (SUBLIMAZE) 25 mcg INTRAVENOUS q 4 H PRN Misael Jeter MD - oxyCODONE IR 5-10 mg tab(s) (ROXICODONE) 5-10 mg ORAL q 4 H PRN Misael Jeter MD 5 mg at 10/09/19 2127 - NaCl 0.9% 3-5 mL 3-5 mL [...] AT BEDTIME Rashawn Medrick 15 mg at 10/09/192123 - gabapentin 300 mg cap(s) (NEURONTIN) 300 mg ORAL q 12 H Rashawn Medrick 300 mg at 10/09/192123 - pantoprazole DR 40 mg tab(s) (PROTONIX) 40 mg ORAL DAILY (6 AM) Rashawn Medrick 40 mg at 10/10/19 0536 - dextrose 40 % 15 g 15 g ORAL PRN Rashawn Medpalma Or - glucagon 1 mg injection (GLUCAGEN) 1 mg INTRAMUSCULAR PRN Rashawn Medpalma Or - dextrose 50% in water 25 mL syringe 12.5 g INTRAVENOUS PRN Rashawn Medpalma - metoprolol tartrate (short acting) 12.5 mg tab(s) (LOPRESSOR) 12.5 mg ORAL q 12 H Rashawn Medrick 12.5 mg at 10/09/192123 PERTINENT CULTURES: Cultures were reviewed. Pertinent cultures from this hospitalization are listed below. Plese refer to [employer] for a full listing of cultures obtained during this hospitalization. ? N/A DIAGNOSTIC TESTS: The following diagnostic tests/findings were reviewed: ? Most recent labs and imaging results. MOST RECENT CXR FINDINGS: Increased vascular markings, likely fluid overload. OPERATIVE PROCEDURE(S): Date of surgery: 10/08/19 Procedure: Left common HAZMAT CDL A DRIVER endarterectomy with bovine path Left profundoplasty Left iliac stenting X4 (I-Cast X2, Jessica X2) Multiple angiograms with angioplasty Surgeon: Dr. May Assessment/Plan 69 year old male with CAD (EF 60% on 09/12/19), ME in 2005, HTN, HLD, COPD, PJ(on 2L O2 nocturnal), DM, GERD, diverticulosis, anxiety, depression, lupus anticoagulant disorder on Coumadin, chronic low back pain, aortoiliac and left ileofemoral PAD s/p multiple interventions including left femoral endarterectomy/aortoil iac stenting in 10/2013 who underwent a Redo left HAZMAT CDL A DRIVER endarterectomy, left profundoplasty, left iliac stenting with Dr. May on 10/08/19. She is admitted to SICU post-operatively for neurovascular checks and close hemodynamic monitoring. Developed L HAZMAT CDL A DRIVER occlusion POD2 and going back to OR [...] -- 10/08/19 1700 activity - mobilize patient (wv,nj) 10/08/19 1645 pneumatic compression stockings ([place], [place]) VTE Prophylaxis: VTE prophylaxis appropriate To be seen and discussed on rounds with SICU staff: Dr. Huntley ICU Checklist --------- --- VTE Prophylaxis: SIGNATURE: Misael Jeter MD PATIENT NAME: Pedro Pablo Sierra DATE: October 10, 2019 TIME: 6:40 AM PAGER/CONTACT #: [phone] [facility] STAFF PHYSICIAN NOTE OF PERSONAL INVOLVEMENT [...] HTN GERD ? Procedure/Surgeon 10/08/19 S/P L HAZMAT CDL A DRIVER endarterectomy with bovine path, profundoplasty and iliac [...] DO 7:56 AM October 10, 2019 Normal [facility] PTT,Anticoag Therapyon 10-09 aPTT Coag (Bld) [Time] 109.7 s High 23.0-32.4 [facility] Comment on above: Result Comment: Unfr actionated [...] laboratory APTT reagent in use throughout the [facility]. Called to and read back by: Landry Quintana RN [facility] 10/10/19 Noemí HOLLIS Performed By: #### P TTAC ####[place] [phone] Phosphoruson 10-10-2019 Phosphate [Mass/Vol] 3.0 mg/dL Normal 2.5-4.5 [facility] Comment on above: Performed By: #### C BCDIF, BMP, MG1, PHOS, PTT, PT ####[address] [phone] Phosphate [Mass/Vol] 2.1 mg/dL Low 2.5-4.5 [facility] Comment on above: Performed By: #### C BC, BMP, MG1, PHOS ####[address] [phone] Protimeon 10-10-2019 PT Coag (PPP) [Time] 10.5 s Normal 9.7-13.0 [facility] Comment on above: Performed By: #### C BCDIF, PTT, FIBCT, PT ####[place] [phone] PT Coag (PPP) [Time] 1.0 s Normal 0.9-1.3 [facility] Comment on above: Result Comment: Teri min K Antagonist (VKA) Therapeutic Range: INR 2 to 3 (Target INR of 2.5) Note: For patients treated with VKA drugs, such as warfarin, the [employer] 2012 Guideline recommends [...] Chest 2012, 141:7S-47S Gio KENNY, et al. [facility] 2017, 70: 252-289 Performed By: #### C BCDIF, PTT, FIBCT, PT ####[place] [phone] Performed By: #### C BCDIF, BMP, MG1, PHOS, PTT, PT ####[place] [phone] PT Coag (PPP) [Time] 10.9 s Normal 9.7-13.0 [facility] Comment on above: Performed By: #### C BCDIF, BMP, MG1, PHOS, PTT, PT ####[address] [phone] SURGICAL PATHOLOGYon 020 SURGICAL PATHOLOGY Specimen originated from [facility] Specimen #: [id number] Submitting Physician: RYAN MAY FINAL DIAGNOSIS Left [...] x 1.0 cm. No vessel is seen. Car Carder sections are submitted in formalin in one cassette. KVB/sierra 10/14/2019 Gross examination performed at [facility], [address] [place] [address] Date of Report: 10/15/2019 Date of Procedure: 10/10/2019 Date of Receipt: 10/11/2019 Submitted by: RYAN MAY Location: [facility] Diagnostic interpretation performed at [facility], [address] [place] [address]. CLIA Number: [id number] [facility] THERAPY NTon 10-10-2019 THERAPY NT HNO ID: [id number] Author: Shakir NessPtPauline Coello Service: Physical Therapy Author Type: Physical Therapist Type: Therapy (PT/OT/Speech/Resp) Filed: 10/10/2019 1:18 PM Note Text: .PHYSICAL THERAPY MISSED VISIT SERVICE DATE: 10/10/2019 SERVICE TIME: 1317 to 1317 ROOM: [facility] ( OPERATING ROOM) Attempted Treatment. Patient not seen due to Surgery. SIGNATURE: Shakir oCello PT PATIENT NAME: Pedro Pablo Sierra DATE: October 10, 2019 TIME: 1:18 PM [facility] THERAPY NT HNO ID: [id number] Author: Caitlin Thomas Service: Occupational Therapy Author Type: Occupational Therapist Type: Therapy (PT/OT/Speech/Resp) Filed: 10/10/2019 7:37 AM Note Text: OCCUPATIONAL THERAPY MISSED VISIT SERVICE DATE: 10/10/2019 SERVICE TIME: 0736 to 0736 ROOM: [id number] Attempted Treatment. Patient not seen due to Surgery. Pt going back to OR. OT tx on hold today. Will continue to monitor. SIGNATURE: Caitlin Thomas OTR/L PATIENT NAME: Pedro Pablo Sierra DATE: October 10, 2019 TIME: 7:36 AM [facility] XR CHEST 1V FRONTAL PORTon 0 10-10-2019 [...] airspace opacities, which may relate to atelectasis. Medical Pathologist: PSCB Transcribe Date/Time: Oct 10 2019 6:59A Dictated by : DULCE BARRON MD This examination was interpreted and the report reviewed and electronically signed by: DULCE BARRON MD on Oct 10 2019 7:00AM EST [id number] [facility] ALLIED HEALTHon 10-09-2019 ALLIED HEALTH HNO ID: [id number] Author: Markell NessWindshield Wiper Repaireredd Alonzo Service: Spiritual Care Author Type: Windshield Wiper Repairer Type: Allied Health Filed: 10/09/2019 5:11 PM [...] patient's RN who could page the on-call drosophere operator. ? To contact the Spiritual Care Department: Please call [phone]?or Page the On-Call Windshield Wiper Repairer at pager [phone].??? Thank you for the opportunity to be of service. SIGNATURE: Chaplain Terry PATIENT NAME: Pedro Pablo Sierra DATE: October 09, 2019 TIME: 5:09 PM PAGER/CONTACT #: [phone] Normal [facility] APTTon 10-09-2019 aPTT Coag (Bld) [Time] 20.8 s Low 23.0-32.4 [facility] Comment on above: Result Comment: Unfr actionated [...] laboratory APTT reagent in use throughout the [facility]. Performed By: #### C BC, BMP, MG1, PHOS, PTT, PT ####[place] [id number] [place], [place] [phone] Basic Metabolic Panlon 10-08 Anion gap [Moles/Vol] 9 mmol/L Normal 9-18 [facility] Comment on above: Performed By: #### C BC, BMP, MG1, PHOS, PTT, PT ####[place] [phone] [place], [place] [phone] Calcium [Mass/Vol] 8.1 mg/dL Low 8.5-10.5 [facility] Comment on above: Performed By: #### C BC, BMP, MG1, PHOS, PTT, PT ####[address] [phone] Chloride [Moles/Vol] 101 mmol/L Normal 98-110 [facility] Comment on above: Performed By: #### C BC, BMP, MG1, PHOS, PTT, PT ####[place] [phone] CO2 [Moles/Vol] 26 mmol/L Normal 23-32 [facility] Comment on above: Performed By: #### C BC, BMP, MG1, PHOS, PTT, PT ####[place] [phone] Creatinine [Mass/Vol] 0.81 mg/dL Normal 0.70-1.40 [facility] Comment on above: Performed By: #### C BC, BMP, MG1, PHOS, PTT, PT ####[place] [phone] eGFR- Amer. >60 Normal >60 [facility] Comment on above: Performed By: #### C BC, BMP, MG1, PHOS, PTT, PT ####[place] [phone] GFR/1.73 sq M predicted among non-blacks MDRD (S/P/Bld) [Vol rate/Area] mL/min/{1.73_m2} Normal >60 [facility] Comment on above: Performed By: #### C BC, BMP, MG1, PHOS, PTT, PT ####[place] [phone] Glucose [Mass/Vol] 129 mg/dL High 65-100 [facility] Comment on above: Performed By: #### C BC, BMP, MG1, PHOS, PTT, PT ####[place] [phone] Potassium [Moles/Vol] 4.5 mmol/L Normal 3.5-5.0 [facility] Comment on above: Performed By: #### C BC, BMP, MG1, PHOS, PTT, PT ####[place] [phone] Sodium [Moles/Vol] 136 mmol/L Normal 135-146 [facility] Comment on above: Performed By: #### C BC, BMP, MG1, PHOS, PTT, PT ####[facility] [place], [place] [phone] Urea nitrogen [Mass/Vol] 15 mg/dL Normal 10-25 [facility] Comment on above: Performed By: #### C BC, BMP, MG1, PHOS, PTT, PT ####[facility] [place], [place] [phone] CASE MANAGEMon 10-09-2019 CASE MANAGEM HNO ID: [id number] Author: Carly NessRn) ОЛЕГ Man Service: Case Management Author Type: Registered Nurse Type: Care Mgt Progress Note Filed: 10/09/2019 1:48 PM Note Text: CARE MANAGEMENT PROGRESS NOTE SERVICE DATE: 10/09/2019 SERVICE TIME: 3385 LOS: 1 day Needs Prior to Discharge: To Be Determined Spoke to pt waiver coordinator , she states she is working on getting pt a caregiver, states pt gets 14 meals a week, he has an emergency response button and a nurse sees him once a week. Pt nurse is from [facility] ). Carmen would like AVS faxed at d/c to [phone] SIGNATURE: Carly Man RN,BSN PATIENT NAME: Pedro Pablo Sierra DATE: October 09, 2019 TIME: 1:44 PM PAGER/CONTACT #: [phone] [facility] CASE MGT INIT JOSE 2019 CASE MGT INIT [facility] HNO ID: [id number] Author: Carly Hutchison) ОЛЕГ Man Service: Case Management Author Type: Registered Nurse Type: Care Mgt Initial Assessment Filed: 10/09/2019 12:41 PM Note Text: CARE MANAGEMENT: ASSESSMENT AND DISCHARGE PLAN SERVICE DATE: October 09, 2019 SERVICE TIME: 1240 PRIMARY CARE PHYSICIAN: DAIJA MORTON MD ADMISSION STATUS: Inpatient Needs Prior to Discharge: To Be Determined MEDICAL: [facility] MEDICARE 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 Last discharge within 30 days: No Advance Directive: Current Advance Directive: Health Care Power of Educational Speech Language Clinician;Living Will In Chart: Yes Up To Date [...] Yes Contact Resources: Family Family Name/Phone: Michelle Basilio (BLAZE) Social Needs Food insecurity Worry: Sometimes [...] Completely I feel financially burdened by my eqa-ac-nfovnr expenses for my prescription medication:: 0 - Disagree Completely Risk Score: 0 Patient is categorized as: Low risk < 2 Are you interested in bedside delivery of your medications? No Is Patient Psychosocially Complex?: No ASSESSMENT AND PLAN: Medical Needs: Medical Needs: Two or more chronic diseases;Fall risk or frequent falls Psychosocial Needs: Psychosocial Needs: None FREEDOM OF CHOICE EXPLAINED: [place] of Choice Given: No Reason Not Given: No placements necessary POTENTIAL TRANSITION PLANS To Be Determined 69 yo male admitted for vascular procedure, vascular surgery following. 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 Pt states B/B is on the same floor, pt has home o2 with portability and receives MOW. Pt states he has waiver services but does not know what services he receives. States he was supposed to get aide services but no one has come to his home. Pt has Waiver Coordinator Carmen ( [phone]) VM left and requested return call to determine what services pt has. PT/OT eval pending to determine needs at d/c. SIGNATURE: Carly Man RN,BSN PATIENT NAME: Pedro Pablo Sierra DATE: October 09, 2019 TIME: 12:26 PM PAGER/CONTACT #: [phone] Normal [facility] CBCon 10-09-2019 Erythrocyte distribution width (RBC) [Ratio] 15.7 % High 11.5-15.0 [facility] Comment on above: Performed By: #### C BC, BMP, MG1, PHOS, PTT, PT ####[facility] [place], [place] [phone] Hematocrit (Bld) [Volume fraction] 28.4 % Low 39.0-51.0 [facility] Comment on above: Performed By: #### C BC, BMP, MG1, PHOS, PTT, PT ####[place] [phone] [place] [phone] MCH (RBC) [Entitic mass] 30.2 pG Normal 26.0-34.0 [facility] Comment on above: Performed By: #### C BC, BMP, MG1, PHOS, PTT, PT ####[place] [phone] MCHC (RBC) [Mass/Vol] 32.7 g/dL Normal 30.5-36.0 [facility] Comment on above: Performed By: #### C BC, BMP, MG1, PHOS, PTT, PT ####[place] [phone] MCV (RBC) [Entitic vol] 92.2 fL Normal 80.0-100.0 [facility] Comment on above: Performed By: #### C BC, BMP, MG1, PHOS, PTT, PT ####[place] [phone] Platelet mean volume (Bld) [Entitic vol] 9.9 fL Normal 9.0-12.7 [facility] Comment on above: Performed By: #### C BC, BMP, MG1, PHOS, PTT, PT ####[place] [phone] Platelets (Bld) [#/Vol] 220 10*3/uL Normal 150-400 [facility] Comment on above: Performed By: #### C BC, BMP, MG1, PHOS, PTT, PT ####[place] [phone] RBC (Bld) [#/Vol] 3.08 10*6/uL Low 4.20-6.00 [facility] Comment on above: Performed By: #### C BC, BMP, MG1, PHOS, PTT, PT ####[place] [phone] WBC (Bld) [#/Vol] 7.77 10*3/uL Normal 3.70-11.00 [facility] Comment on above: Performed By: #### C BC, BMP, MG1, PHOS, PTT, PT ####[place] [phone] CBC and Differentialon 10-08 Abs Baso <0.03 Normal <0.11 [facility] Comment on above: Performed By: #### C BCDIF ####[place] [phone] Abs [place] 0.50 k/uL Normal <0.87 [facility] Comment on above: Performed By: #### C BCDIF ####[place] [phone] Abs Neut 5.57 k/uL Normal 1.45-7.50 [facility] Comment on above: Performed By: #### C BCDIF ####[place] [phone] Basophils/100 WBC (Bld) 0.3 % Normal [facility] Comment on above: Performed By: #### C BCDIF ####[place] [phone] DTYPE Auto Diff Normal [facility] Comment on above: Performed By: #### C BCDIF ####[place] [phone] Eosinophils (Bld) [#/Vol] 10*3/uL Normal <0.46 [facility] Comment on above: Performed By: #### C BCDIF ####[place] [phone] Eosinophils/100 WBC (Bld) 0.1 % Normal [facility] Comment on above: Performed By: #### C BCDIF ####[place] [phone] Erythrocyte distribution width (RBC) [Ratio] 16.0 % High 11.5-15.0 [facility] Comment on above: Performed By: #### C BCDIF ####[place] [phone] Hematocrit (Bld) [Volume fraction] 28.9 % Low 39.0-51.0 [facility] Comment on above: Performed By: #### C BCDIF ####[place] [phone] Hemoglobin (Bld) [Mass/Vol] 9.3 g/dL Low 13.0-17.0 [facility] Comment on above: Performed By: #### C BCDIF ####[place] [phone] Performed By: #### C BC, BMP, MG1, PHOS, PTT, PT ####[place] [phone] Lymphocytes (Bld) [#/Vol] 1.19 10*3/uL Normal 1.00-4.00 [facility] Comment on above: Performed By: #### C BCDIF ####[place] [phone] Lymphocytes/100 WBC (Bld) 16.3 % Normal [facility] Comment on above: Performed By: #### C BCDIF ####[place] [phone] MCH (RBC) [Entitic mass] 30.0 pG Normal 26.0-34.0 [facility] Comment on above: Performed By: #### C BCDIF ####[place] [phone] MCHC (RBC) [Mass/Vol] 32.2 g/dL Normal 30.5-36.0 [facility] Comment on above: Performed By: #### C BCDIF ####[place] [phone] MCV (RBC) [Entitic vol] 93.2 fL Normal 80.0-100.0 [facility] Comment on above: Performed By: #### C BCDIF ####[place] [phone] Monocytes/100 WBC (Bld) 6.9 % Normal [facility] Comment on above: Performed By: #### C BCDIF ####[address] [phone] Neutrophils/100 WBC (Bld) 76.4 % Normal [facility] Comment on above: Performed By: #### C BCDIF ####[address] [phone] Platelet mean volume (Bld) [Entitic vol] 9.8 fL Normal 9.0-12.7 [facility] Comment on above: Performed By: #### C BCDIF ####[address] [phone] Platelets (Bld) [#/Vol] 200 10*3/uL Normal 150-400 [facility] Comment on above: Performed By: #### C BCDIF ####[address] [phone] RBC (Bld) [#/Vol] 3.10 10*6/uL Low 4.20-6.00 [facility] Comment on above: Performed By: #### C BCDIF ####[address] [phone] WBC (Bld) [#/Vol] 7.29 10*3/uL Normal 3.70-11.00 [facility] Comment on above: Performed By: #### C BCDIF ####[address] [phone] MEDICAL EMERon 10-09-2019 MEDICAL LEYLA HNO ID: [id number] Author: Misael Jeter MD Service: Critical Care [...] Jeter MD General Surgery Resident PGY2 Pager: [phone] 10/09/2019 5:11 PM Normal [facility] Magnesiumon 10-09-2019 Magnesium [Mass/Vol] 2.1 mg/dL Normal 1.7-2.6 [facility] Comment on above: Result Comment: Revi ewed Performed By: #### C BC, BMP, MG1, PHOS, PTT, PT ####[facility] [place] [phone] NURSING PROGon 10-09-2019 NURSING PROG HNO ID: [id number] Author: Amanda NessRn) ОЛЕГ Delgadillo Service: Nursing Author Type: Registered Nurse Type: Nursing Progress Note Filed: 10/09/2019 6:36 PM Note Text: Nursing Progress Note Patient Name: Pedro Pablo Sierra Patient Location: [id number]/-[id number] 245- __ Daily Note: 9675: Bedside handoff received from ОЛЕГ Shields. 1800: Dr. Fish at bedside. Patient c/o numbness in left leg. Bilateral DP and PT pulses doppled. Dr. Fish obtaining consent for surgery tomorrow. 1900: Bedside handoff given to ОЛЕГ Jarrell. This note was completed by: Amanda Delgadillo RN [facility] NURSING PROG HNO ID: [id number] Author: Cornelius Hutchison) ОЛЕГ Gonzalez Service: Nursing Author Type: Registered Nurse Type: Nursing Progress Note Filed: 10/09/2019 5:39 PM Note Text: Nursing Progress Note Patient Name: Pedro Pablo Sierra Patient Location: [id number]/[facility] __ Daily Note: 0700 Bedside report received from previous shift RN. 0800 Assessment completed and charted. Neuro intact. VSS. Pulses present via doppler. See flowsheets. 1200 Assessment completed and charted. 1600 Reassessment completed and charted. 1730 Heparin gtt started. See AUG. 1744 Bedside report given to Tigist AHUJA. 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 Formal arterial duplex of LLE shows occluded HAZMAT CDL A DRIVER. Plan for exploration and revascularization with Dr. 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 ETX#[id number] For questions Monday through Monday 6am to 6pm please page Red Team [phone] For questions during nights (6pm - 6am) and weekends, please contact the General Surgery Radio Electronics Technician pager, [phone] [facility] PROGRESS HNO ID: [id number] Author: Rashawn Huntley Service: Critical Care Author [...] CURRENT MEDICATIONS: Medications reviewed. Please refer to [facility] for list of inpatient medications. Current Facility-Administered [...] H Rashawn Huntley 1,000 mg at 10/09/19 0624 - ipratropium-albuterol 3 mL nebulizer solution (DUONEB) 3 mL INHALATION q 4 H PRN Rashawn Huntley - hyoscyamine sublingual 0.25 mg tab(s) (LEVSIN SL) 0.25 mg SUBLINGUAL AC and HS Rashawn Medrick 0.25 mg at 10/09/19624 - sertraline 100 mg tab(s) (ZOLOFT) 100 mg ORAL DAILY Rashawn Medrick 100 mg at 10/08/191808 - mirtazapine 15 [...] (6 AM) Rashawn Medrick 40 mg at 10/09/19624 - dextrose 40 % 15 g 15 [...] hospitalization are listed below. Plese refer to [facility] for a full listing of cultures obtained during this hospitalization. ? N/A DIAGNOSTIC TESTS: The following diagnostic tests/findings were reviewed: ? Most recent labs and imaging results. MOST RECENT CXR FINDINGS: n/a OPERATIVE PROCEDURE(S): Date of surgery: 10/08/19 Procedure: Left common HAZMAT CDL A DRIVER endarterectomy with bovine path Left profundoplasty Left iliac stenting X4 (I-Cast X2, Jessica X2) Multiple angiograms with angioplasty Surgeon: Dr. 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 Huntley ICU Checklist --------- --- VTE Prophylaxis: SIGNATURE: Misael Jeter MD PATIENT NAME: Pedro Pablo Sierra DATE: October 09, 2019 TIME: 6:40 AM PAGER/CONTACT #: [phone] [facility] STAFF PHYSICIAN NOTE OF PERSONAL INVOLVEMENT [...] Essential HTN GERD Procedure/Surgeon 10/08/19 S/P L HAZMAT CDL A DRIVER endarterectomy with bovine path, profundoplasty and iliac [...] DO 8:20 AM October 09, 2019 Normal [facility] PTT,Anticoag Therapyon 10-08 aPTT Coag (Bld) [Time] 23.9 s Normal 23.0-32.4 [facility] Comment on above: Result Comment: Unfr actionated [...] laboratory APTT reagent in use throughout the [facility]. Performed By: #### P T, PTTAC ####[address] [phone] Phosphoruson 10-09-2019 Phosphate [Mass/Vol] 3.6 mg/dL Normal 2.5-4.5 [facility] Comment on above: Performed By: #### C BC, BMP, MG1, PHOS, PTT, PT ####[place] [id number] [place], [place] [phone] Protimeon 10-09-2019 PT Coag (PPP) [Time] 10.2 s Normal 9.7-13.0 [facility] Comment on above: Performed By: #### P T, PTTAC ####[address] [phone] PT Coag (PPP) [Time] 1.0 s Normal 0.9-1.3 [facility] Comment on above: Result Comment: Teri min K Antagonist (VKA) Therapeutic Range: INR 2 to 3 (Target INR of 2.5) Note: For patients treated with VKA drugs, such as warfarin, the [employer] 2012 Guideline recommends [...] [phone] Performed By: #### P T, PTTAC ####[place] [phone] Performed By: #### C BC, BMP, MG1, PHOS, PTT, PT ####[place] [phone] PT Coag (PPP) [Time] 10.5 s Normal 9.7-13.0 [facility] Comment on above: Performed By: #### C BC, BMP, MG1, PHOS, PTT, PT ####[place] [phone] Staph aureus PCRon 0 MRSA PCR Negative [facility] Comment on above: Performed By: #### S APCR ####[place] [phone] [phone] S aureus Spec Source Nasal Normal [facility] Comment on above: Performed By: #### S APCR ####[place] [phone] Staph aureus PCR Negative [facility] Comment on above: Performed By: #### S APCR ####[place] [phone] [place], [place] [phone] THERAPY NTon 10-09-2019 THERAPY NT HNO ID: [id number] Author: Shakir Alicea (Pt) Mode Service: Physical Therapy Author Type: Physical Therapist Type: Therapy (PT/OT/Speech/Resp) Filed: 10/09/2019 2:58 PM Note Text: Physical Therapy Evaluation SERVICE DATE: 10/09/2019 SERVICE TIME: 1055 to 1120 ROOM: [place] [address] Recommended Discharge Disposition: Home PT Anticipated Discharge [...] ness on feet Interventions Provided: Evaluation;Gait Training (36462) $ Evaluation-Moderate (59044) Billed Units: 1 unit Gait Training (45616) Treatment Minutes: 10 1 unit Skilled Intervention(s): [...] Consult : PVD s/p L LE redo HAZMAT CDL A DRIVER endarterectomy, L profundoplasty, iliac stenting on 10/08/19 Relevant Past Medical History: CAD, ME, HTN, HLD, COPD, PJ, DM, anxiety, depression, blind R eye Patient Report: Pt agreeable to participate in therapy session Home Environment Patient Lives With: Self/Alone Assistance Available: rehabilitation nurse Entry To Home: Stairs;Other: See Comment(stair lift) [...] October 09, 2019 TIME: 2:46 PM Normal [facility] THERAPY NT HNO ID: [id number] Author: Caitlin (Ot) William Service: Occupational Therapy Author Type: Occupational Therapist Type: Therapy (PT/OT/Speech/Resp) Filed: 10/09/2019 12:48 PM Note Text: Occupational Therapy Evaluation SERVICE DATE: 10/09/2019 SERVICE TIME: 1010 to 1050 ROOM: [id number] Recommended Discharge Disposition: Home OT Justification For [...] and Awareness;Unsteadiness on feet Interventions Provided: Evaluation;Self Retirement Management (64226) $ Evaluation-Moderate (61335) Billed Units: 1 unit Self Retirement Management (67332) Treatment Minutes: 25 2 units Skilled Intervention(s): [...] Reason for Occupational Therapy Consult: redo L HAZMAT CDL A DRIVER endarterectomy, L profundoplasty, L iliac stenting 10/07 Relevant Past Medical History: CAD, ME, HTN, HLD, COPD, PJ, DM, anxiety, depression, blind R eye Patient Report: My daughter is a nurse. She's over a lot. Home Environment Patient Lives With: Self/Alone Assistance Available: rehabilitation nurse(daughter comes over often) Entry To Home: Stairs(pt [...] DATE: October 09, 2019 TIME: 12:39 PM [facility] ANES POSTPROC EVALon 020 ANES POSTPROC EVAL HNO ID: [id number] Author: Job Roberts Service: ? Author Type: Anesthesiologist Type: Anesthesia Postprocedure Evaluation Filed: 10/08/2019 6:40 PM Note Text: POST ANESTHESIA EVALUATION NOTE : 1950 Procedure Summary Date: 10/08/19 Room / Location: OR04A / [facility] OR Anesthesia Start: 08 Anesthesia Stop: 1625 Procedures: ENDARTERECTOMY FEMORAL (Left Leg) ENDOVASCULAR REVASCULARIZE OPEN ILIAC ARTERY UNILAT W/ TRANSLUMINAL STENT AND ANGIOPLASTY (Left ) Diagnosis: PVD (peripheral vascular disease) (HCC) (PVD (peripheral vascular disease) (HCC) [I73.9]) Surgeon: Ryan May MD Responsible Provider: [...] October 08, 2019 TIME: 6:39 PM CSN: [id number] [facility] ANES PRE-OPon 10-08-2019 ANES PRE-OP HNO ID: [id number] Author: Anabel Lozano Service: ? Author Type: [...] (+) Hypertension (+) PVD (peripheral vascular disease) ([facility]) (+) s/p left femoral endarterectomy/aortoil iac stenting 10/2013 PULMONARY (+) COPD (chronic obstructive pulmonary disease) ([facility]) (+) PJ (obstructive sleep apnea) ANESTHESIA (+) [...] movements. - COMPOUNDED PRESCRIPTION Aerosol supplies Dx:J44.1 NPI#[id number] - ipratropium-albuterol (DUONEB) 0.5 mg-3 mg(2.5 mg [...] October 08, 2019 TIME: 8:42 AM CSN: [id number] Normal [facility] APTTon 10-08-2019 aPTT Coag (Bld) [Time] 53.2 s High 23.0-32.4 [facility] Comment on above: Result Comment: Unfr actionated [...] laboratory APTT reagent in use throughout the [facility]. Performed By: #### C BC, BMP, MG1, PHOS, PT, PTT ####[address] [phone] Basic Metabolic Panlon 10-07 Anion gap [Moles/Vol] 13 mmol/L Normal 9-18 [facility] Comment on above: Performed By: #### C BC, BMP, MG1, PHOS, PT, PTT ####[address] [phone] Calcium [Mass/Vol] 8.4 mg/dL Low 8.5-10.5 [facility] Comment on above: Performed By: #### C BC, BMP, MG1, PHOS, PT, PTT ####[address] [phone] Chloride [Moles/Vol] 100 mmol/L Normal 98-110 [facility] Comment on above: Performed By: #### C BC, BMP, MG1, PHOS, PT, PTT ####[address] [phone] CO2 [Moles/Vol] 24 mmol/L Normal 23-32 [facility] Comment on above: Performed By: #### C BC, BMP, MG1, PHOS, PT, PTT ####[place] [phone] Creatinine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 Barrett RN 10/07/2019 4:43 PM [...] RN and I am calling from the [facility] on behalf of your PCP, DAIJA [...] like to speak with a social work steam plant operator to help give you support for any [...] the Track Pt Outreach section. Progress Notes ([facility]): Leidy Francisco MIKE 10/07/2019 8:03 AM Signed Upcoming appointment: none, [...] daily. NAVI: No Authorizing Provider: [employer] (CHANNEL [employer]) Kaleb Ngo APRN.CNP [facility] Culture, urine Bacteria identified Cx Nom (U) Presumptive E. coli [facility] Work Phone: Lower GI hemoglobin IA Ql (S tl) Stool Occult Blood (LACI) Positive [facility] Work Phone: Vital Signs Date Time Vital Sign Value Performing Clinician Kim johnson 01-03-2025 10:00-0400 Diastolic blood pressure 73 mm[Hg] Dr. Daija Morton MD Work Phone: [facility] 01-03-2025 10:00-0400 Heart rate 53 /min Dr. Daija Morton MD Work Phone: [facility] 01-03-2025 10:00-0400 Respiratory rate 16 /min Dr. Daija Morton MD Work Phone: [facility] 01-03-2025 10:00-0400 SaO2% (BldA) [Mass fraction] 99 % Dr. Daija Mroton MD Work Phone: [facility] 01-03-2025 10:00-0400 Systolic blood pressure 174 mm[Hg] Dr. Daija Morton MD Work Phone: 1(151)853-028394 [place] [address] 01-03-2025 08:17-0400 Body temperature 97.6 [degF] Dr. Daija Morton MD Work Phone: 4(776)174-021494 [place] [address] 01-03-2025 06:27-0400 Body height 182.[address] Daija Morton MD Work Phone: 0(693)754-309294 [place] [address] 01-03-2025 06:27-0400 Body mass index (BMI) [Ratio] 20.4 kg/m2 Dr. Daija Morton MD Work Phone: 4(492)198-596794 [place] [address] 01-03-2025 06:27-0400 Body weight 68.[address] Daija Morton MD Work Phone: 4(320)686-674994 [place] [address] 12-26-2024 18:05-0400 Diastolic blood pressure 72 mm[Hg] Dr. Daija Morton MD Work Phone: 4(764)238-550894 [place] [address] 12-26-2024 18:05-0400 Heart rate 74 /min Dr. Daija Morton MD Work Phone: 4(220)949-538394 [place] [address] 12-26-2024 18:05-0400 Systolic blood pressure 162 mm[Hg] Dr. Daija Morton MD Work Phone: 8(664)460-875794 [place] [address] 12-26-2024 14:27-0400 Body temperature 97.9 [degF] Dr. Daija Morton MD Work Phone: 4(231)445-743994 [place] [address] 12-26-2024 14:27-0400 Inhaled oxygen flow rate 2 L/min Dr. Daija Morton MD Work Phone: 7(390)927-568294 [place] [address] 12-26-2024 14:27-0400 Respiratory rate 18 /min Dr. Daija Morton MD Work Phone: 2(738)068-132594 [place] [address] 12-26-2024 14:27-0400 SaO2% (BldA) [Mass fraction] 96 % Dr. Daija Morton MD Work Phone: 3(915)414-015594 [place] [address] 12-26-2024 04:00-0400 Body mass index (BMI) [Ratio] 24.5 kg/m2 Dr. Daija Morton MD Work Phone: 4(836)171-018794 [place] [address] 12-25-2024 11:12-0400 Body height 172.[address] Daija Morton MD Work Phone: 7(636)637-661094 [place] [address] 12-25-2024 11:12-0400 Body weight [address] Daija Morton MD Work Phone: 9(573)357-044794 [place] [address] 12-17-2024 18:14-0400 Body temperature 98.5 [degF] Dr. Daija Morton MD Work Phone: 7(287)224-335494 [place] [address] 12-17-2024 18:14-0400 Diastolic blood pressure 91 mm[Hg] Dr. Daija Morton MD Work Phone: 3(964)186-899094 [place] [address] 12-17-2024 18:14-0400 Heart rate 64 /min Dr. Daija Morton MD Work Phone: 2(037)552-761494 [place] [address] 12-17-2024 18:14-0400 Respiratory rate 16 /min Dr. Daija Morton MD Work Phone: 0(159)071-933394 [place] [address] 12-17-2024 18:14-0400 SaO2% (BldA) [Mass fraction] 99 % Dr. Daija Morton MD Work Phone: 7(451)032-163494 [place] [address] 12-17-2024 18:14-0400 Systolic blood pressure 197 mm[Hg] Dr. Daija Morton MD Work Phone: 3(662)550-067594 [place] [address] 12-17-2024 18:00-0400 Inhaled oxygen flow rate 2 L/min Dr. Daija Morton MD Work Phone: 3(878)694-435394 [place] [address] 12-17-2024 16:21-0400 Body height 172.[address] Daija Morton MD Work Phone: 5(430)336-120294 [place] [address] 12-17-2024 16:21-0400 Body mass index (BMI) [Ratio] 24.5 kg/m2 Dr. Daija Morton MD Work Phone: 2(899)626-649694 [place] [address] 12-17-2024 16:21-0400 Body weight [address] Daija Morton MD Work Phone: 3(665)892-911694 [place] [address] 12-16-2024 20:45-0400 Heart rate 76 /min Dr. Daija Morton MD Work Phone: 1(480)060-645094 [place] [address] 12-16-2024 20:45-0400 Respiratory rate 20 /min Dr. Daija Morton MD Work Phone: 8(756)574-255894 [place] [address] 12-16-2024 19:55-0400 Body temperature 98 [degF] Dr. Daija Morton MD Work Phone: 3(057)748-157694 [place] [address] 12-16-2024 19:55-0400 Diastolic blood pressure 72 mm[Hg] Dr. Daija Morton MD Work Phone: 9(674)614-947694 [place] [address] 12-16-2024 19:55-0400 Inhaled oxygen flow rate 2 L/min Dr. Daija Morton MD Work Phone: 3(018)375-357794 [place] [address] 12-16-2024 19:55-0400 SaO2% (BldA) [Mass fraction] 94 % Dr. Daija Morton MD Work Phone: 9(985)890-933894 [place] [address] 12-16-2024 19:55-0400 Systolic blood pressure 160 mm[Hg] Dr. Daija Morton MD Work Phone: 4(034)464-012994 [place] [address] 12-16-2024 03:13-0400 Body mass index (BMI) [Ratio] 23.4 kg/m2 Dr. Daija Morton MD Work Phone: 4(491)230-514194 [place] [address] 12-16-2024 03:13-0400 Body weight 70.[address] Daija Morton MD Work Phone: 4(110)506-129394 [place] [address] 12-14-2024 13:01-0400 Body height 172.[address] Daija Morton MD Work Phone: 7(169)663-774294 [place] [address] 12-13-2024 20:55-0400 Body temperature 98.3 [degF] Dr. Daija Morton MD Work Phone: 7(456)936-975094 [place] [address] 12-13-2024 20:55-0400 Diastolic blood pressure 73 mm[Hg] Dr. Daija Morton MD Work Phone: 9(416)306-731294 [place] [address] 12-13-2024 20:55-0400 Heart rate 65 /min Dr. Daija Morton MD Work Phone: 0(343)585-391094 [place] [address] 12-13-2024 20:55-0400 Respiratory rate 26 /min Dr. Daija Morton MD Work Phone: 1(906)507-416394 [place] [address] 12-13-2024 20:55-0400 SaO2% (BldA) [Mass fraction] 98 % Dr. Daija Morton MD Work Phone: 8(207)943-937094 [place] [address] 12-13-2024 20:55-0400 Systolic blood pressure 191 mm[Hg] Dr. Daija Morton MD Work Phone: 5(063)459-556494 [place] [address] 12-13-2024 18:10-0400 Inhaled oxygen flow rate 3.5 L/min Dr. Daija Morton MD Work Phone: 9(307)668-418994 [place] [address] 12-13-2024 17:46-0400 Body height 172.[address] Daija Morton MD Work Phone: 8(383)557-824894 [place] [address] 12-13-2024 17:46-0400 Body mass index (BMI) [Ratio] 24.3 kg/m2 Dr. Daija Morton MD Work Phone: 2(758)961-116494 [place] [address] 12-13-2024 17:46-0400 Body weight 72.[address] Daija Morton MD Work Phone: 4(279)494-674894 [place] [address] 12-12-2024 13:57-0400 Body mass index (BMI) [Ratio] 24.05 kg/m2 Anjel Older 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 Work Phone: 3(203)640-333019 [place] [address] 12-12-2024 13:57-0400 Body weight 71.76 kg Anjel Older 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 Work Phone: 0(356)831-466702 [place] [address] 12-12-2024 13:57-0400 Diastolic blood pressure 83 mm[Hg] Anjel Older 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 Work Phone: [facility] 12-12-2024 13:57-0400 Heart rate 65 /min Anjel Older 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 Work Phone: [facility] 12-12-2024 13:57-0400 Respiratory rate 20 /min Anjel Older 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 Work Phone: [facility] 12-12-2024 13:57-0400 SaO2% (BldA) [Mass fraction] 94 % Anjel Older 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 Work Phone: [facility] 12-12-2024 13:57-0400 Systolic blood pressure 185 mm[Hg] Anjel Older 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 Work Phone: [facility] 09-02-2024 20:48-0400 Heart rate 62 /min Dr. Daija Morton MD Work Phone: [facility] 09-02-2024 19:34-0400 Body temperature 97.5 [degF] Dr. Daija Morton MD Work Phone: [facility] 09-02-2024 19:34-0400 Diastolic blood pressure 77 mm[Hg] Dr. Daija Morton MD Work Phone: [facility] 09-02-2024 19:34-0400 Respiratory rate 16 /min Dr. Daija Morton MD Work Phone: [facility] 09-02-2024 19:34-0400 SaO2% (BldA) [Mass fraction] 92 % Dr. Daija Morton MD Work Phone: [facility] 09-02-2024 19:34-0400 Systolic blood pressure 146 mm[Hg] Dr. Daija Morton MD Work Phone: [facility] 09-02-2024 10:22-0400 Body height 172.[address] Daija Morton MD Work Phone: [facility] 09-02-2024 10:22-0400 Body weight 68.[address] Daija Morton MD Work Phone: 7(139)381-624494 [place] [address] 09-02-2024 06:00-0400 Body mass index (BMI) [Ratio] 22.8 kg/m2 Dr. Daija Morton MD Work Phone: 8(213)972-557194 [place] [address] 09-01-2024 22:41-0400 Inhaled oxygen flow rate 2 L/min Dr. Daija Morton MD Work Phone: 8(188)981-430294 [place] [address] 08-25-2024 18:11-0400 Diastolic blood pressure 90 mm[Hg] Dr. Daija Morton MD Work Phone: 5(273)148-357394 [place] [address] 08-25-2024 18:11-0400 Heart rate 66 /min Dr. Daija Morton MD Work Phone: 2(520)460-146794 [place] [address] 08-25-2024 18:11-0400 Respiratory rate 24 /min Dr. Daija Morton MD Work Phone: 6(569)733-499594 [place] [address] 08-25-2024 18:11-0400 SaO2% (BldA) [Mass fraction] 93 % Dr. Daija Morton MD Work Phone: 9(190)969-289994 [place] [address] 08-25-2024 18:11-0400 Systolic blood pressure 197 mm[Hg] Dr. Daija Morton MD Work Phone: 9(465)289-992094 [place] [address] 08-25-2024 16:12-0400 Body height 165.[address] Daija Morton MD Work Phone: 8(789)208-431194 [place] [address] 08-25-2024 16:12-0400 Body temperature 97.7 [degF] Dr. Daija Morton MD Work Phone: 2(415)043-995994 [place] [address] 03-23-2024 13:19-0400 Diastolic blood pressure 98 mm[Hg] Pura Carter APRN.CHANNEL MAN Work Phone: 6(717)822-617719 [place] [address] 03-23-2024 13:19-0400 Systolic blood pressure 230 mm[Hg] Pura Carter APRN.CHANNEL MAN Work Phone: 1(149)229-426619 [place] [address] 03-23-2024 13:12-0400 Body mass index (BMI) [Ratio] 20.92 kg/m2 Pura Praisler-Wood 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 Work Phone: [facility] 03-23-2024 13:12-0400 Body temperature 96.91 [degF] Pura Praisler-Wood 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 Work Phone: [facility] 03-23-2024 13:12-0400 Body weight 62.4 kg Pura Praisler-Wood 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 Work Phone: [facility] 03-23-2024 13:12-0400 Heart rate 74 /min Pura Praisler-Wood 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 Work Phone: [facility] 03-23-2024 13:12-0400 Respiratory rate 16 /min Pura Praisler-Wood 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 Work Phone: [facility] 11-21-2023 12:49-0400 Diastolic blood pressure 94 mm[Hg] Rebekah Bogner PA-C Work Phone: [facility] 11-21-2023 12:49-0400 Systolic blood pressure 200 mm[Hg] Rebekah Bogner PA-C Work Phone: [facility] 11-21-2023 12:42-0400 Body mass index (BMI) [Ratio] 22.96 kg/m2 Rebekah Bogner PA-C Work Phone: [facility] 11-21-2023 12:42-0400 Body weight 68.49 kg Rebekah Bogner PA-C Work Phone: [facility] 11-21-2023 12:42-0400 Heart rate 60 /min Rebekah Bogner PA-C Work Phone: [facility] 11-21-2023 12:42-0400 Respiratory rate 16 /min Rebekah Bogner PA-C Work Phone: [facility] 11-21-2023 12:42-0400 SaO2% (BldA) [Mass fraction] 92 % Rebekah Bogner PA-C Work Phone: [facility] 08-02-2023 19:35-0500 Inhaled oxygen flow rate 2 L/min Dr. Daija Morton Work Phone: 4(033)247-448642 [place] [address] 08-02-2023 19:27-0500 Body temperature 97.9 [degF] Dr. Daija Morton Work Phone: 4(982)136-223094 [place] [address] 08-02-2023 19:27-0500 Diastolic blood pressure 59 mm[Hg] Dr. Daija Morton Work Phone: 6(475)247-922694 [place] [address] 08-02-2023 19:27-0500 Heart rate 98 /min Dr. Daija Morton Work Phone: 1(675)868-103694 [place] [address] 08-02-2023 19:27-0500 Respiratory rate 16 /min Dr. Daija Morton Work Phone: 7(599)055-333194 [place] [address] 08-02-2023 19:27-0500 SaO2% (BldA) [Mass fraction] 93 % Dr. Daija Morton Work Phone: 9(809)742-385194 [place] [address] 08-02-2023 19:27-0500 Systolic blood pressure 149 mm[Hg] Dr. Daija Morton Work Phone: 4(604)854-963194 [place] [address] 07-31-2023 10:17-0500 Body height 172.[address] Daija Morton Work Phone: 6(376)452-403294 [place] [address] 07-31-2023 10:17-0500 Body weight 67.[address] Daija Morton Work Phone: 4(437)063-393494 [place] [address] 07-31-2023 00:57-0500 Body mass index (BMI) [Ratio] 22.4 kg/m2 Dr. Daija Morton Work Phone: 1(994)610-471794 [place] [address] 07-31-2023 00:05-0500 Body temperature 99 [degF] Dr. Daija Morton Work Phone: 9(203)069-007794 [place] [address] 07-31-2023 00:05-0500 Diastolic blood pressure 107 mm[Hg] Dr. Daija Morton Work Phone: 8(566)107-791142 [place] [address] 07-31-2023 00:05-0500 Heart rate 107 /min Dr. Daija Morton Work Phone: 1(931)763-854694 [place] [address] 07-31-2023 00:05-0500 Respiratory rate 30 /min Dr. Daija Morton Work Phone: 3(053)196-936094 [place] [address] 07-31-2023 00:05-0500 SaO2% (BldA) [Mass fraction] 98 % Dr. Daija Morton Work Phone: 8(434)122-843394 [place] [address] 07-31-2023 00:05-0500 Systolic blood pressure 173 mm[Hg] Dr. Daija Morton Work Phone: 2(724)325-888894 [place] [address] 07-30-2023 23:25-0500 Inhaled oxygen flow rate 3 L/min Dr. Daija Morton Work Phone: 6(843)114-092694 [place] [address] 07-30-2023 20:30-0500 Body height 172.[address] Daija Morton Work Phone: 1(168)514-344094 [place] [address] 07-30-2023 20:30-0500 Body mass index (BMI) [Ratio] 24.2 kg/m2 Dr. Daija Morton Work Phone: 1(867)584-794594 [place] [address] 07-30-2023 20:30-0500 Body weight 72.[address] Daija Morton Work Phone: 4(198)686-364194 [place] [address] 07-26-2023 12:10-0500 Diastolic blood pressure 59 mm[Hg] Dr. Daija Morton Work Phone: 7(505)068-646894 [place] [address] 07-26-2023 12:10-0500 Heart rate 67 /min Dr. Daija Morton Work Phone: 9(768)938-659594 [place] [address] 07-26-2023 12:10-0500 Respiratory rate 18 /min Dr. Daija Morton Work Phone: 8(218)085-652894 [place] [address] 07-26-2023 12:10-0500 SaO2% (BldA) [Mass fraction] 90 % Dr. Daija Morton Work Phone: 0(389)609-505494 [place] [address] 07-26-2023 12:10-0500 Systolic blood pressure 107 mm[Hg] Dr. Daija Morton Work Phone: 1(196)501-810794 [place] [address] 07-26-2023 08:38-0500 Body temperature 97.8 [degF] Dr. Daija Morton Work Phone: 2(171)106-820594 [place] [address] 07-26-2023 06:59-0500 Inhaled oxygen flow rate 2 L/min Dr. Daija Morton Work Phone: 5(959)176-075494 [place] [address] 07-25-2023 16:00-0500 Body weight 51.[address] Daija Morton Work Phone: 1(582)773-623394 [place] [address] 07-24-2023 21:55-0500 Body mass index (BMI) [Ratio] 17.4 kg/m2 Dr. Daija Morton Work Phone: 1(686)787-161994 [place] [address] 07-24-2023 21:13-0500 Diastolic blood pressure 89 mm[Hg] Dr. Daija Morton Work Phone: 5(185)405-439094 [place] [address] 07-24-2023 21:13-0500 Heart rate 65 /min Dr. Daija Morton Work Phone: 9(438)324-336294 [place] [address] 07-24-2023 21:13-0500 Respiratory rate 16 /min Dr. Daija Morton Work Phone: 4(258)220-547394 [place] [address] 07-24-2023 21:13-0500 SaO2% (BldA) [Mass fraction] 91 % Dr. Daija Morton Work Phone: 2(163)159-731194 [place] [address] 07-24-2023 21:13-0500 Systolic blood pressure 210 mm[Hg] Dr. Daija Morton Work Phone: 0(592)528-357094 [place] [address] 07-24-2023 17:27-0500 Body mass index (BMI) [Ratio] 22.8 kg/m2 Dr. Daija Morton Work Phone: 3(670)628-191294 [place] [address] 07-24-2023 17:27-0500 Body weight [address] Daija Morton Work Phone: 1(423)976-636894 [place] [address] 07-24-2023 16:44-0500 Body height 172.[address] Daija Morton Work Phone: 8(313)221-411594 [place] [address] 07-24-2023 16:44-0500 Body temperature 96.7 [degF] Dr. Daija Morton Work Phone: 0(646)445-386694 [place] [address] 04-04-2023 11:37-0400 Diastolic blood pressure 79 mm[Hg] Dr. Daija Morton Work Phone: 4(050)716-529694 [place] [address] 04-04-2023 11:37-0400 Heart rate 44 /min Dr. Daija Morton Work Phone: 2(587)867-950494 [place] [address] 04-04-2023 11:37-0400 Systolic blood pressure 188 mm[Hg] Dr. Daija Morton Work Phone: 9(198)378-217594 [place] [address] 04-04-2023 10:02-0400 Body temperature 97.6 [degF] Dr. Daija Morton Work Phone: 5(446)522-732894 [place] [address] 04-04-2023 10:02-0400 Respiratory rate 18 /min Dr. Daija Morton Work Phone: 4(318)143-664194 [place] [address] 04-04-2023 10:02-0400 SaO2% (BldA) [Mass fraction] 92 % Dr. Daija Morton Work Phone: 1(086)780-299494 [place] [address] 04-03-2023 15:53-0400 Inhaled oxygen flow rate 2 L/min Dr. Daija Morton Work Phone: 7(323)595-936642 [place] [address] 03-31-2023 14:20-0400 Body mass index (BMI) [Ratio] 20.5 kg/m2 Dr. Daija Morton Work Phone: 5(974)691-135542 [place] [address] 03-31-2023 14:20-0400 Body weight [address] Daija Morton Work Phone: 7(873)836-030794 [place] [address] 03-31-2023 09:57-0400 Body height 175.[address] Daija Morton Work Phone: 1(330)380-380594 [place] [address] 03-30-2023 20:26-0400 Body temperature 96.7 [degF] Dr. Daija Morton Work Phone: 2(255)991-583694 [place] [address] 03-30-2023 20:26-0400 Diastolic blood pressure 78 mm[Hg] Dr. Daija Morton Work Phone: 6(261)635-350394 [place] [address] 03-30-2023 20:26-0400 Heart rate 71 /min Dr. Daija Morton Work Phone: 5(281)182-559594 [place] [address] 03-30-2023 20:26-0400 Respiratory rate 18 /min Dr. Daija Morton Work Phone: 4(159)751-895894 [place] [address] 03-30-2023 20:26-0400 SaO2% (BldA) [Mass fraction] 97 % Dr. Daija Morton Work Phone: 2(470)904-580694 [place] [address] 03-30-2023 20:26-0400 Systolic blood pressure 181 mm[Hg] Dr. Daija Morton Work Phone: 4(870)072-580194 [place] [address] 03-30-2023 14:10-0400 Body height 172.[address] Diaja Morton Work Phone: 5(437)530-810794 [place] [address] 03-29-2023 19:22-0400 Body mass index (BMI) [Ratio] 21.9 kg/m2 Dr. Daija Morton Work Phone: 2(990)075-206794 [place] [address] 03-29-2023 19:22-0400 Body weight 65.[address] Daija Morton Work Phone: 3(054)007-949594 [place] [address] 03-29-2023 19:20-0400 Diastolic blood pressure 80 mm[Hg] Dr. Daija Morton Work Phone: 3(317)670-948694 [place] [address] 03-29-2023 19:20-0400 Heart rate 84 /min Dr. Daija Morton Work Phone: 5(382)077-661494 [place] [address] 03-29-2023 19:20-0400 Respiratory rate 18 /min Dr. Daija Morton Work Phone: 5(053)596-316994 [place] [address] 03-29-2023 19:20-0400 SaO2% (BldA) [Mass fraction] 92 % Dr. Daija Morton Work Phone: 6(878)598-751742 [place] [address] 03-29-2023 19:20-0400 Systolic blood pressure 195 mm[Hg] Dr. Daija Morton Work Phone: 8(955)857-917094 [place] [address] 03-29-2023 18:17-0400 Body temperature 97.6 [degF] Dr. Daija Morton Work Phone: 2(400)586-512494 [place] [address] 02-25-2023 19:41-0400 Diastolic blood pressure 87 mm[Hg] Dr. Daija Morton Work Phone: 7(857)361-478094 [place] [address] 02-25-2023 19:41-0400 Heart rate 67 /min Dr. Daija Morton Work Phone: 6(187)804-862694 [place] [address] 02-25-2023 19:41-0400 Respiratory rate 15 /min Dr. Daija Morton Work Phone: 8(799)064-317594 [place] [address] 02-25-2023 19:41-0400 SaO2% (BldA) [Mass fraction] 97 % Dr. Daija Morton Work Phone: 8(890)494-753794 [place] [address] 02-25-2023 19:41-0400 Systolic blood pressure 193 mm[Hg] Dr. Daija Morton Work Phone: 4(151)418-098494 [place] [address] 02-25-2023 19:37-0400 Body mass index (BMI) [Ratio] 22.4 kg/m2 Dr. Daija Morton Work Phone: 3(425)111-348094 [place] [address] 02-25-2023 19:37-0400 Body weight 67.[address] Daija Morton Work Phone: 7(006)136-193394 [place] [address] 02-25-2023 17:22-0400 Body temperature 97 [degF] Dr. Daija Morton Work Phone: 5(774)539-585794 [place] [address] 02-18-2023 01:56-0400 Diastolic blood pressure 113 mm[Hg] [facility] 02-18-2023 01:56-0400 Heart rate 88 /min [facility] 02-18-2023 01:56-0400 Respiratory rate 16 /min [facility] 02-18-2023 01:56-0400 Systolic blood pressure 157 mm[Hg] [facility] 02-18-2023 01:00-0400 SaO2% (BldA) [Mass fraction] 98 % [facility] 02-17-2023 21:35-0400 Body mass index (BMI) [Ratio] 21.5 kg/m2 [facility] 02-17-2023 21:35-0400 Body weight 66.13 kg [facility] 02-17-2023 21:32-0400 Body height 175.26 cm [facility] 02-17-2023 21:32-0400 Body temperature 96.4 [degF] [facility] 12-31-2022 15:16-0400 Body height 173 cm [facility] 12-31-2022 15:16-0400 Body mass index (BMI) [Ratio] 21.7 kg/m2 [facility] 12-31-2022 15:16-0400 Body temperature 96.6 [degF] [facility] 12-31-2022 15:16-0400 Body weight 65.2 kg [facility] 12-31-2022 15:16-0400 Diastolic blood pressure 66 mm[Hg] [facility] 12-31-2022 15:16-0400 Heart rate 75 /min [facility] 12-31-2022 15:16-0400 Respiratory rate 15 /min [facility] 12-31-2022 15:16-0400 SaO2% (BldA) [Mass fraction] 93 % [facility] 12-31-2022 15:16-0400 Systolic blood pressure 118 mm[Hg] [facility] 12-26-2022 14:04-0400 Diastolic blood pressure 90 mm[Hg] Ryan May MD Work Phone: [facility] 12-26-2022 14:04-0400 Heart rate 50 /min Ryan May MD Work Phone: [facility] 12-26-2022 14:04-0400 Systolic blood pressure 207 mm[Hg] Ryan May MD Work Phone: [facility] 10-22-2022 21:40-0400 Diastolic Blood Pressure Non-Invasive [address] PRIYANKA FRANCO MD [facility] 10-22-2022 21:40-0400 Heart rate 88 /min DR PRIYANKA FRANCO MD [facility] 10-22-2022 21:40-0400 Respiratory rate 20 /min DR PRIYANKA FRANCO MD [facility] 10-22-2022 21:40-0400 Systolic Blood Pressure Non-Invasive [address] PRIYANKA FRANCO MD [facility] 10-22-2022 19:59-[address] PRIYANKA FRANCO MD [facility] 10-22-2022 19:59-0400 Body temperature 98.6 [degF] DR PRIYANKA FRACNO MD [facility] 10-22-2022 19:59-0400 Diastolic Blood Pressure Non-Invasive [address] PRIYANKA FRANCO MD [facility] 10-22-2022 19:59-0400 Heart rate 97 /min DR PRIYANKA FRANCO MD [facility] 10-22-2022 19:59-0400 Respiratory rate 21 /min DR PRIYANKA FRANCO MD [facility] 10-22-2022 19:59-0400 Systolic Blood Pressure Non-Invasive [address] PRIYANKA FRANCO MD [facility] 10-21-2022 18:30-0400 Body height 172.72 cm [facility] 10-21-2022 18:30-0400 Body temperature 97.5 [degF] [facility] 10-21-2022 18:30-0400 Diastolic blood pressure 88 mm[Hg] [facility] 10-21-2022 18:30-0400 Heart rate 99 /min [facility] 10-21-2022 18:30-0400 Respiratory rate 16 /min [facility] 10-21-2022 18:30-0400 SaO2% (BldA) [Mass fraction] 96 % [facility] 10-21-2022 18:30-0400 Systolic blood pressure 168 mm[Hg] [facility] 08-27-2022 10:51-0500 Diastolic blood pressure 91 mm[Hg] Daija Morton MD Work Phone: [facility] 08-27-2022 10:51-0500 Heart rate 69 /min Daija Morton MD Work Phone: [facility] 08-27-2022 10:51-0500 Systolic blood pressure 212 mm[Hg] Daija Morton MD Work Phone: [facility] 08-27-2022 10:47-0500 Body temperature 97 [degF] Daija Morton MD Work Phone: [facility] 08-27-2022 10:47-0500 Body weight 71.22 kg Daija Morton MD Work Phone: [facility] 08-27-2022 10:47-0500 Respiratory rate 28 /min Daija Morton MD Work Phone: [facility] 08-27-2022 10:47-0500 SaO2% (BldA) [Mass fraction] 95 % Daija Morton MD Work Phone: [facility] 03-10-2022 10:10-0400 Diastolic blood pressure 90 mm[Hg] Anjel Older 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 Work Phone: [facility] 03-10-2022 10:10-0400 Heart rate 88 /min Anjel Older 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 Work Phone: [facility] 03-10-2022 10:10-0400 Respiratory rate 16 /min Anjel Older 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 Work Phone: [facility] 03-10-2022 10:10-0400 Systolic blood pressure 158 mm[Hg] Anjel Braga APRN.CNP Work Phone: [facility] 03-08-2022 23:13-0400 Diastolic blood pressure 93 mm[Hg] Dr. Daija Morton Work Phone: [facility] Work Phone: 03-08-2022 23:13-0400 Heart rate 71 /min Dr. Daija Morton Work Phone: [facility] Work Phone: 03-08-2022 23:13-0400 Inhaled oxygen flow rate 3 L/min Dr. Daija Morton Work Phone: [facility] Work Phone: 03-08-2022 23:13-0400 Respiratory rate 16 /min Dr. Daija Morton Work Phone: [facility] Work Phone: 03-08-2022 23:13-0400 SaO2% (BldA) [Mass fraction] 96 % Dr. Daija Morton Work Phone: [facility] Work Phone: 03-08-2022 23:13-0400 Systolic blood pressure 178 mm[Hg] Dr. Daija Morton Work Phone: [facility] Work Phone: 03-08-2022 17:31-0400 Body height 172.[address] Daija Morton Work Phone: [facility] Work Phone: 03-08-2022 17:31-0400 Body mass index (BMI) [Ratio] 20.5 kg/m2 Dr. Daija Morton Work Phone: [facility] Work Phone: 03-08-2022 17:31-0400 Body temperature 97.6 [degF] Dr. Daija Morton Work Phone: [facility] Work Phone: 03-08-2022 17:31-0400 Body weight 61.[address] Daija Morton Work Phone: [facility] Work Phone: 03-07-2022 17:28-0400 Respiratory rate 18 /min Dr. Daija Morton Work Phone: [facility] Work Phone: 03-07-2022 15:23-0400 Body height 172.[address] Daija Morton Work Phone: [facility] Work Phone: 03-07-2022 15:23-0400 Body mass index (BMI) [Ratio] 20.5 kg/m2 Dr. Daija Morton Work Phone: [facility] Work Phone: 03-07-2022 15:23-0400 Body temperature 97.4 [degF] Dr. Daija Morton Work Phone: [facility] Work Phone: 03-07-2022 15:23-0400 Body weight 61.[address] Daija Morton Work Phone: [facility] Work Phone: 03-07-2022 15:23-0400 Diastolic blood pressure 88 mm[Hg] Dr. Daija Morton Work Phone: [facility] Work Phone: 03-07-2022 15:23-0400 Heart rate 84 /min Dr. Daija Morton Work Phone: [facility] Work Phone: 03-07-2022 15:23-0400 SaO2% (BldA) [Mass fraction] 93 % Dr. Daija Morton Work Phone: [facility] Work Phone: 03-07-2022 15:23-0400 Systolic blood pressure 193 mm[Hg] Dr. Daija Morton Work Phone: [facility] Work Phone: 03-02-2022 19:05-0400 Diastolic blood pressure 81 mm[Hg] Dr. Daija Morton Work Phone: [facility] Work Phone: 03-02-2022 19:05-0400 Heart rate 56 /min Dr. Daija Morton Work Phone: [facility] Work Phone: 03-02-2022 19:05-0400 Respiratory rate 18 /min Dr. Daija Morton Work Phone: [facility] Work Phone: 03-02-2022 19:05-0400 SaO2% (BldA) [Mass fraction] 92 % Dr. Daija Morton Work Phone: [facility] Work Phone: 03-02-2022 19:05-0400 Systolic blood pressure 209 mm[Hg] Dr. Daija Morton Work Phone: [facility] Work Phone: 03-02-2022 17:41-0400 Body temperature 97.5 [degF] Dr. Daija Morton Work Phone: [facility] Work Phone: 03-02-2022 15:10-0400 Body height 172.[address] Daija Morton Work Phone: [facility] Work Phone: 03-02-2022 15:10-0400 Body mass index (BMI) [Ratio] 23.5 kg/m2 Dr. Daija Morton Work Phone: [facility] Work Phone: 03-02-2022 15:10-0400 Body weight 70.[address] Daija Morton Work Phone: [facility] Work Phone: 01-31-2022 13:59-0400 Body height 172.7 cm Ryan May MD Work Phone: [facility] 01-31-2022 13:59-0400 Body weight 68.49 kg Ryan May MD Work Phone: [facility] 01-31-2022 13:59-0400 Diastolic blood pressure 99 mm[Hg] Ryan May MD Work Phone: [facility] 01-31-2022 13:59-0400 Systolic blood pressure 168 mm[Hg] Ryan May MD Work Phone: [facility] 01-28-2022 15:53-0400 Diastolic blood pressure 88 mm[Hg] Dr. Daija Morton Work Phone: [facility] Work Phone: 01-28-2022 15:53-0400 Heart rate 54 /min Dr. Daija Morton Work Phone: [facility] Work Phone: 01-28-2022 15:53-0400 Respiratory rate 20 /min Dr. Daija Morton Work Phone: [facility] Work Phone: 01-28-2022 15:53-0400 SaO2% (BldA) [Mass fraction] 97 % Dr. Daija Morton Work Phone: [facility] Work Phone: 01-28-2022 15:53-0400 Systolic blood pressure 200 mm[Hg] Dr. Daija Morton Work Phone: [facility] Work Phone: 01-28-2022 14:03-0400 Body height 172.[address] Daija Morton Work Phone: [facility] Work Phone: 01-28-2022 14:03-0400 Body mass index (BMI) [Ratio] 22.9 kg/m2 Dr. Daija Morton Work Phone: [facility] Work Phone: 01-28-2022 14:03-0400 Body temperature 96.8 [degF] Dr. Daija Morton Work Phone: [facility] Work Phone: 01-28-2022 14:03-0400 Body weight 68.[address] Daija Morton Work Phone: [facility] Work Phone: 01-28-2022 11:41-0400 Diastolic blood pressure 92 mm[Hg] Anjel Older 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 Work Phone: [facility] 01-28-2022 11:41-0400 Heart rate 56 /min Anjel Older 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 Work Phone: [facility] 01-28-2022 11:41-0400 Systolic blood pressure 200 mm[Hg] Anjel Older 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 Work Phone: [facility] 01-28-2022 10:57-0400 Body weight 68.49 kg Anjel Older 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 Work Phone: [facility] 01-28-2022 10:57-0400 Respiratory rate 16 /min Anjel Older 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 Work Phone: [facility] 01-20-2022 13:23-0400 Diastolic blood pressure 102 mm[Hg] Ye Coello MD Work Phone: [facility] 01-20-2022 13:23-0400 Heart rate 61 /min Ye Coello MD Work Phone: [facility] 01-20-2022 13:23-0400 SaO2% (BldA) [Mass fraction] 94 % Ye Coello MD Work Phone: [facility] 01-20-2022 13:23-0400 Systolic blood pressure 172 mm[Hg] Ye Colelo MD Work Phone: [facility] 01-14-2022 10:26-0400 Body temperature 98.2 [degF] Harriett Burts RADIO MECHANIC HELPER.CNC ROUTER OPERATOR Work Phone: [facility] 01-14-2022 10:26-0400 Body weight 69.67 kg Harriett Burts RADIO MECHANIC HELPER.CNC ROUTER OPERATOR Work Phone: [facility] 01-14-2022 10:26-0400 Diastolic blood pressure 80 mm[Hg] Harriett Albert RADIO MECHANIC HELPER.CNC ROUTER OPERATOR Work Phone: [facility] 01-14-2022 10:26-0400 Heart rate 78 /min Harriett Albert RADIO MECHANIC HELPER.CNC ROUTER OPERATOR Work Phone: [facility] 01-14-2022 10:26-0400 Respiratory rate 16 /min Harriett Albert RADIO MECHANIC HELPER.CNC ROUTER OPERATOR Work Phone: [facility] 01-14-2022 10:26-0400 SaO2% (BldA) [Mass fraction] 95 % Harriett Burts RADIO MECHANIC HELPER.CNC ROUTER OPERATOR Work Phone: [facility] 01-14-2022 10:26-0400 Systolic blood pressure 186 mm[Hg] Harriett Burts RADIO MECHANIC HELPER.CNC ROUTER OPERATOR Work Phone: [facility] 11-30-2021 15:02-0400 Heart rate 75 /min Dr. Daija Morton Work Phone: [facility] Work Phone: 11-30-2021 15:02-0400 Respiratory rate 17 /min Dr. Daija Morton Work Phone: [facility] Work Phone: 11-30-2021 13:57-0400 Body temperature 97.4 [degF] Dr. Daija Morton Work Phone: [facility] Work Phone: 11-30-2021 13:57-0400 Diastolic blood pressure 67 mm[Hg] Dr. Daija Morton Work Phone: [facility] Work Phone: 11-30-2021 13:57-0400 SaO2% (BldA) [Mass fraction] 93 % Dr. Daija Morton Work Phone: [facility] Work Phone: 11-30-2021 13:57-0400 Systolic blood pressure 161 mm[Hg] Dr. Daija Morton Work Phone: [facility] Work Phone: 11-30-2021 11:25-0400 Inhaled oxygen flow rate 3 L/min Dr. Daija Morton Work Phone: [facility] Work Phone: 11-29-2021 12:48-0400 Body height 172.[address] Daija Morton Work Phone: [facility] Work Phone: 11-29-2021 12:48-0400 Body weight 71.[address] Daija Morton Work Phone: [facility] Work Phone: 11-27-2021 05:25-0400 Body mass index (BMI) [Ratio] 24 kg/m2 Dr. Daija Morton Work Phone: [facility] Work Phone: 11-25-2021 21:36-0400 Body temperature 97.8 [degF] Dr. Daija Morton Work Phone: [facility] Work Phone: 11-25-2021 21:36-0400 Diastolic blood pressure 40 mm[Hg] Dr. Daija Morton Work Phone: [facility] Work Phone: 11-25-2021 21:36-0400 Heart rate 66 /min Dr. Daija Morton Work Phone: [facility] Work Phone: 11-25-2021 21:36-0400 Respiratory rate 16 /min Dr. Daija Morton Work Phone: [facility] Work Phone: 11-25-2021 21:36-0400 SaO2% (BldA) [Mass fraction] 96 % Dr. Daija Morton Work Phone: [facility] Work Phone: 11-25-2021 21:36-0400 Systolic blood pressure 133 mm[Hg] Dr. Daija Morton Work Phone: [facility] Work Phone: 11-25-2021 17:29-0400 Body height 172.[address] Daija Morton Work Phone: [facility] Work Phone: 11-25-2021 17:29-0400 Body mass index (BMI) [Ratio] 24.7 kg/m2 Dr. Daija Morton Work Phone: [facility] Work Phone: 11-25-2021 17:29-0400 Body weight 73.[address] Daija Morton Work Phone: [facility] Work Phone: 11-16-2021 14:37-0400 Body height 172.7 cm Estephania Pierre APRN.CHANNEL MAN Work Phone: [facility] 11-16-2021 14:37-0400 Body weight 71.67 kg Estephania Pierre APRN.CHANNEL MAN Work Phone: [facility] 11-16-2021 14:37-0400 Diastolic blood pressure 68 mm[Hg] Estephania Pierre APRN.CHANNEL MAN Work Phone: [facility] 11-16-2021 14:37-0400 Heart rate 64 /min Estephania Pierre APRN.CHANNEL MAN Work Phone: [facility] 11-16-2021 14:37-0400 SaO2% (BldA) [Mass fraction] 100 % Estephania Pierre APRN.CHANNEL MAN Work Phone: [facility] 11-16-2021 14:37-0400 Systolic blood pressure 162 mm[Hg] Estephanialuis Pierre APRN.CHANNEL MAN Work Phone: [facility] 11-08-2021 12:50-0400 Heart rate 73 /min Respiratory Wstr Work Phone: [facility] 11-08-2021 12:50-0400 Respiratory rate 14 /min Respiratory Wstr Work Phone: [facility] 11-08-2021 12:50-0400 SaO2% (BldA) [Mass fraction] 97 % Respiratory Wstr Work Phone: [facility] 11-05-2021 11:22-0400 Body weight 70.31 kg Emilie Shania PA-C Work Phone: [facility] 11-05-2021 11:22-0400 Diastolic blood pressure 68 mm[Hg] Emilie Shania PA-C Work Phone: [facility] 11-05-2021 11:22-0400 Heart rate 71 /min Emilie Shania PA-C Work Phone: [facility] 11-05-2021 11:22-0400 Respiratory rate 20 /min Emilie Shania PA-C Work Phone: [facility] 11-05-2021 11:22-0400 SaO2% (BldA) [Mass fraction] 99 % Emilie Shania PA-C Work Phone: [facility] 11-05-2021 11:22-0400 Systolic blood pressure 140 mm[Hg] Emilie Shania PA-C Work Phone: [facility] 10-21-2021 11:30-0400 Diastolic blood pressure 65 mm[Hg] Mi Nurse Work Phone: [facility] 10-21-2021 11:30-0400 Heart rate 81 /min Mi Nurse Work Phone: [facility] 10-21-2021 11:30-0400 Systolic blood pressure 155 mm[Hg] Mi Nurse Work Phone: [facility] 10-13-2021 13:00-0400 Body height 172.7 cm Ye Coello MD Work Phone: [facility] 10-13-2021 13:00-0400 Body weight 71.67 kg Ye Coello MD Work Phone: [facility] 10-13-2021 13:00-0400 Diastolic blood pressure 93 mm[Hg] Ye Coello MD Work Phone: [facility] 10-13-2021 13:00-0400 Heart rate 66 /min Ye Coello MD Work Phone: [facility] 10-13-2021 13:00-0400 Systolic blood pressure 217 mm[Hg] Ye Coello MD Work Phone: [facility] 10-08-2021 17:14-0400 Diastolic blood pressure 62 mm[Hg] Dr. Daija Morton Work Phone: [facility] Work Phone: 10-08-2021 17:14-0400 Heart rate 58 /min Dr. Daija Morton Work Phone: [facility] Work Phone: 10-08-2021 17:14-0400 Respiratory rate 18 /min Dr. Daija Morton Work Phone: [facility] Work Phone: 10-08-2021 17:14-0400 SaO2% (BldA) [Mass fraction] 98 % Dr. Daija Morton Work Phone: [facility] Work Phone: 10-08-2021 17:14-0400 Systolic blood pressure 149 mm[Hg] Dr. Daija Morton Work Phone: [facility] Work Phone: 10-08-2021 14:12-0400 Body height 172.[address] Daija Morton Work Phone: [facility] Work Phone: 10-08-2021 14:12-0400 Body mass index (BMI) [Ratio] 24.7 kg/m2 Dr. Daija Morton Work Phone: [facility] Work Phone: 10-08-2021 14:12-0400 Body temperature 98.1 [degF] Dr. Daija Morton Work Phone: [facility] Work Phone: 10-08-2021 14:12-0400 Body weight 73.[address] Daija Morton Work Phone: [facility] Work Phone: 10-07-2021 11:17-0400 Body temperature 97.59 [degF] Anjel Older 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 Work Phone: [facility] 10-07-2021 11:17-0400 Body weight 70.31 kg Anjel Older 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 Work Phone: [facility] 10-07-2021 11:17-0400 Diastolic blood pressure 90 mm[Hg] Anjel Older 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 Work Phone: [facility] 10-07-2021 11:17-0400 Heart rate 67 /min Anjel Older 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 Work Phone: [facility] 10-07-2021 11:17-0400 Respiratory rate 12 /min Anjel Older 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 Work Phone: [facility] 10-07-2021 11:17-0400 SaO2% (BldA) [Mass fraction] 96 % Anjel Older 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 Work Phone: [facility] 10-07-2021 11:17-0400 Systolic blood pressure 178 mm[Hg] Anjel Older 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 Work Phone: [facility] 09-29-2021 16:20-0400 Body temperature 98.24 [degF] DR PRIYANKA FRANCO MD [facility] 09-29-2021 16:20-0400 Diastolic blood pressure 91 mm[Hg] DR PRIYANKA FRANCO MD [facility] 09-29-2021 16:20-0400 Heart rate 80 /min DR PRIYANKA FRANCO MD [facility] 09-29-2021 16:20-0400 Respiratory rate 18 /min DR PRIYANKA FRANCO MD [facility] 09-29-2021 16:20-0400 Systolic blood pressure 189 mm[Hg] DR PRIYANKA FRANCO MD [facility] 09-17-2021 20:16-0400 Body temperature 97.3 [degF] Dr. Daija Morton Work Phone: [facility] Work Phone: 09-17-2021 20:16-0400 Diastolic blood pressure 80 mm[Hg] Dr. Daija Morton Work Phone: [facility] Work Phone: 09-17-2021 20:16-0400 Heart rate 85 /min Dr. Daija Morton Work Phone: [facility] Work Phone: 09-17-2021 20:16-0400 Respiratory rate 17 /min Dr. Dajia Morton Work Phone: [facility] Work Phone: 09-17-2021 20:16-0400 SaO2% (BldA) [Mass fraction] 96 % Dr. Daija Morton Work Phone: [facility] Work Phone: 09-17-2021 20:16-0400 Systolic blood pressure 171 mm[Hg] Dr. Daija Morton Work Phone: [facility] Work Phone: 09-17-2021 16:56-0400 Body height 172.[address] Daija Morton Work Phone: [facility] Work Phone: 09-17-2021 16:56-0400 Body mass index (BMI) [Ratio] 23.7 kg/m2 Dr. Daija Morton Work Phone: [facility] Work Phone: 09-17-2021 16:56-0400 Body weight 70.[address] Daija Morton Work Phone: [facility] Work Phone: 09-15-2021 17:40-0400 Diastolic blood pressure 73 mm[Hg] Anjel Older 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 Work Phone: [facility] 09-15-2021 17:40-0400 Systolic blood pressure 170 mm[Hg] Anjel Older 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 Work Phone: [facility] 09-15-2021 16:57-0400 Body weight 71.22 kg Anjel Older 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 Work Phone: [facility] 09-15-2021 16:57-0400 Heart rate 68 /min Anjel Older 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 Work Phone: [facility] 09-15-2021 16:57-0400 Respiratory rate 16 /min Anjel Older 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 Work Phone: [facility] 09-15-2021 16:18-0400 Body height 172.7 cm Kaye Ortega MD Work Phone: [facility] 09-15-2021 16:18-0400 Body temperature 97.39 [degF] Kaye Ortega MD Work Phone: [facility] 09-15-2021 16:18-0400 Body weight 71.67 kg Kaye Ortega MD Work Phone: [facility] 09-15-2021 16:18-0400 Diastolic blood pressure 72 mm[Hg] Kaye Ortega MD Work Phone: [facility] 09-15-2021 16:18-0400 Heart rate 78 /min Kaye Ortega MD Work Phone: [facility] 09-15-2021 16:18-0400 SaO2% (BldA) [Mass fraction] 96 % Kaye Ortega MD Work Phone: [facility] 09-15-2021 16:18-0400 Systolic blood pressure 138 mm[Hg] Kaye Ortega MD Work Phone: [facility] 08-21-2021 09:30-0500 Body temperature 97.6 [degF] Dr. Daija Morton Work Phone: [facility] Work Phone: 08-21-2021 09:30-0500 Diastolic blood pressure 69 mm[Hg] Dr. Daija Morton Work Phone: [facility] Work Phone: 08-21-2021 09:30-0500 Heart rate 61 /min Dr. Daija Morton Work Phone: [facility] Work Phone: 08-21-2021 09:30-0500 Inhaled oxygen flow rate 3 L/min Dr. Daija Morton Work Phone: [facility] Work Phone: 08-21-2021 09:30-0500 Respiratory rate 18 /min Dr. Daija Morton Work Phone: [facility] Work Phone: 08-21-2021 09:30-0500 SaO2% (BldA) [Mass fraction] 98 % Dr. Daija Morton Work Phone: [facility] Work Phone: 08-21-2021 09:30-0500 Systolic blood pressure 183 mm[Hg] Dr. Daija Morton Work Phone: [facility] Work Phone: 08-21-2021 08:30-0500 Body temperature 97.6 [degF] Dr. Daija Morton Work Phone: [facility] Work Phone: 08-21-2021 08:30-0500 Diastolic blood pressure 69 mm[Hg] Dr. Daija Morton Work Phone: [facility] Work Phone: 08-21-2021 08:30-0500 Heart rate 61 /min Dr. Daija Morton Work Phone: [facility] Work Phone: 08-21-2021 08:30-0500 Respiratory rate 18 /min Dr. Daija Morton Work Phone: [facility] Work Phone: 08-21-2021 08:30-0500 SaO2% (BldA) [Mass fraction] 98 % Dr. Daija Morton Work Phone: [facility] Work Phone: 08-21-2021 08:30-0500 Systolic blood pressure 183 mm[Hg] Dr. Daija Morton Work Phone: [facility] Work Phone: 08-20-2021 06:18-0500 Body mass index (BMI) [Ratio] 23.7 kg/m2 Dr. Daija Morton Work Phone: [facility] Work Phone: 08-20-2021 06:18-0500 Body weight [address] Daija Morton Work Phone: [facility] Work Phone: 08-20-2021 05:18-0500 Body mass index (BMI) [Ratio] 23.7 kg/m2 Dr. Daija Morton Work Phone: [facility] Work Phone: 08-20-2021 05:18-0500 Body weight [address] Daija Morton Work Phone: [facility] Work Phone: 08-12-2021 03:26-0500 Diastolic blood pressure 89 mm[Hg] Dr. Daija Morton Work Phone: [facility] Work Phone: 08-12-2021 03:26-0500 Heart rate 70 /min Dr. Daija Morton Work Phone: [facility] Work Phone: 08-12-2021 03:26-0500 Respiratory rate 18 /min Dr. Daija Morton Work Phone: [facility] Work Phone: 08-12-2021 03:26-0500 SaO2% (BldA) [Mass fraction] 93 % Dr. Daija Morton Work Phone: [facility] Work Phone: 08-12-2021 03:26-0500 Systolic blood pressure 211 mm[Hg] Dr. Daija Morton Work Phone: [facility] Work Phone: 08-11-2021 23:32-0500 Body mass index (BMI) [Ratio] 24.8 kg/m2 Dr. Daija Morton Work Phone: [facility] Work Phone: 08-11-2021 23:32-0500 Body temperature 97.5 [degF] Dr. Daija Morton Work Phone: [facility] Work Phone: 08-11-2021 23:32-0500 Body weight 74.[address] Daija Morton Work Phone: [facility] Work Phone: 06-12-2021 15:55-0500 Diastolic blood pressure 81 mm[Hg] Dr. Daija Morton Work Phone: [facility] Work Phone: 06-12-2021 15:55-0500 Heart rate 61 /min Dr. Daija Morotn Work Phone: [facility] Work Phone: 06-12-2021 15:55-0500 Systolic blood pressure 182 mm[Hg] Dr. Daija Morton Work Phone: [facility] Work Phone: 06-12-2021 15:15-0500 Body mass index (BMI) [Ratio] 24.6 kg/m2 Dr. Daija Morton Work Phone: [facility] Work Phone: 06-12-2021 15:15-0500 Body temperature 96.8 [degF] Dr. Daija Morton Work Phone: [facility] Work Phone: 06-12-2021 15:15-0500 Body weight 73.[address] Daija Morton Work Phone: [facility] Work Phone: 06-12-2021 15:15-0500 Respiratory rate 18 /min Dr. Daija Morton Work Phone: [facility] Work Phone: 06-12-2021 15:15-0500 SaO2% (BldA) [Mass fraction] 96 % Dr. Daija Morton Work Phone: [facility] Work Phone: 06-04-2021 23:37-0500 Respiratory rate 18 /min Dr. Daija Morton Work Phone: [facility] Work Phone: 06-04-2021 22:01-0500 Body mass index (BMI) [Ratio] 23.6 kg/m2 Dr. Daija Morton Work Phone: [facility] Work Phone: 06-04-2021 22:01-0500 Body temperature 97.1 [degF] Dr. Daija Morton Work Phone: [facility] Work Phone: 06-04-2021 22:01-0500 Body weight 70.[address] Daija Morton Work Phone: [facility] Work Phone: 06-04-2021 22:01-0500 Diastolic blood pressure 99 mm[Hg] Dr. Daija Morton Work Phone: [facility] Work Phone: 06-04-2021 22:01-0500 Heart rate 87 /min Dr. Daija Morton Work Phone: [facility] Work Phone: 06-04-2021 22:01-0500 SaO2% (BldA) [Mass fraction] 97 % Dr. Daija Morton Work Phone: [facility] Work Phone: 06-04-2021 22:01-0500 Systolic blood pressure 202 mm[Hg] Dr. Daija Morton Work Phone: [facility] Work Phone: Encounters Encounter Date Encounter Type Care Provider Facility Start: 01-03-2025 End: 01-03-2025 Emergency department patient visit Dr. Daija Morton MD Work Phone: -Emergency Department Start: 01-03-2025 End: 01-03-2025 Dr. Daija Morton MD Work Phone: -Emergency Department Work Phone: Start: 12-31-2024 ambulatory Lorraine RAIN Fa cility:[facility] Start: 12-31-2024 Lorraine Johns Start: 12-30-2024 ambulatory Efml Mena OLS Fa cility:[facility] Start: 12-30-2024 Lorraine Johns Start: 12-26-2024 End: 12-26-2024 Follow-up encounter Anjel Braga 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 Work Phone: [facility] Start: 12-26-2024 Dr. Shilpa edwards MD -[facility] Work Phone: Start: 12-25-2024 Dr. Shilpa edwards MD -[facility] Work Phone: Start: 12-24-2024 [facility]ino [facility] Start: 12-24-2024 Dr. Shilpa edwards MD -[facility] Work Phone: Start: 12-23-2024 Paulino [facility] Start: 12-23-2024 ambulatory Raul Jensen Facility:[facility] Start: 12-23-2024 Dr. Raul Jensen MD -[facility] Start: 12-23-2024 Dr. Shilpa edwards MD -[facility] Work Phone: Start: 12-22-2024 Dr. Lisha Talamantes -[facility] Work Phone: Start: 12-21-2024 Dr. Lisha Talamantes DO -[facility] Work Phone: Start: 12-20-2024 Dr. Lisha Talamantes DO -[facility] Work Phone: Start: 12-19-2024 Dr. Lisha Talamantes DO -[facility] Work Phone: Start: 12-18-2024 ambulatory [facility] ility:[facility] Start: 12-18-2024 End: 12-26-2024 Evaluation and management of inpatient Dr. Daija Morton MD Work Phone: -Progressive Care Unit Start: 12-18-2024 End: 12-26-2024 Dr. Shilpa Contreras MD -[facility]gressive Care Unit Work Phone: Start: 12-18-2024 ambulatory Milton Guajardo Facility:[facility] Start: 12-18-2024 Dr. Milton Guajardo MD -[facility] Start: 12-17-[address] Germain Morton MD Work Phone: -Progressive Care Unit Start: 12-17-2024 Dr. Roman Patel DO -Progressive Care Unit Work Phone: Start: 12-17-2024 End: 12-20-2024 ambulatory Daija Morton MD Work Phone: Internal Medicine [facility] [place] Start: 12-17-2024 End: 12-24-2024 Telephone encounter Daija Morton MD Work Phone: [facility] Comment on above: Patient Update Start: 12-16-2024 End: 12-17-2024 Refill Daija Morton MD Work Phone: [facility] Comment on above: Refill Request SOB (shortness of br eath) (Primary Dx) Start: 12-16-2024 Dr. Lisha Talamantes DO [facility] Work Phone: Start: 12-15-2024 Dr. Lisha Talamantes DO -[facility] Work Phone: Start: 12-14-2024 Dr. Lisha Talamantes DO -[facility] Work Phone: Start: 12-13-2024 Non-patient / Non-visit Dr. Kisha Contreras MD -[facility] Work Phone: Start: 12-13-2024 End: [...] Subsequent hospital visit by physician Xr [facility] Work Phone: Radiology Comment on above: Wheezing [R06.2] Start: 12-12-2024 End: 12-12-2024 ambulatory DAIJA MORTON Facility:[facility] Start: 12-12-2024 End: 12-12-2024 Office outpatient visit 25 minutes Anjel Braga KISHORE Work Phone: [facility] Comment on above: Other emphysema (HCC ) (Primary Dx); Smoker; Wheezing; Lower abdominal tenderness; Loose stools; On home oxygen therapy; Primary hypertension; Left leg pain; Falls; Weakness Start: 12-12-2024 End: 12-12-2024 ambulatory ANJEL [facility] Facility:[facility] Start: 12-09-2024 End: 12-09-2024 Telephone encounter Daija Morton MD Work Phone: Internal Medicine [place] Comment on above: Home Care Management ; Patient Update Start: 12-06-2024 End: 12-06-2024 Telephone encounter Daija Morton MD Work Phone: Internal Medicine [place] Comment on above: [facility] update Start: 12-03-2024 End: 12-04-2024 Telephone encounter Daija Morton MD Work Phone: Internal Medicine [place] Comment on above: Home Health Orders Start: 12-02-2024 ambulatory Carla Constantino ty:[facility] Start: 12-02-[address] Carla Prather MD -[facility] Start: 12-02-2024 Dr. Carla Prather MD [facility] Start: 11-05-2024 End: 11-05-[address] Daija Morton MD Work Phone: [facility] Work Phone: Start: 11-05-2024 End: 11-05-[address] Carla Prather MD -[facility] Start: 11-05-2024 End: 11-05-2024 Dr. Carla Prather MD -[facility] Start: 11-05-2024 End: 11-05-2024 ambulatory Carla RAIN Facility:[facility] Start: 10-16-2024 ambulatory Carla RAIN Facili ty:[facility] Start: 10-16-[address] Carla Prather MD -[facility] Start: 10-16-2024 Dr. Carla Prather MD -[facility] Start: 09-02-2024 Non-patient / Non-visit Dr. Brody Maynard MD -[facility] Work Phone: Start: 09-02-2024 Dr. Brody Maynard MD -[facility] Work Phone: Start: 09-01-2024 Non-patient / Non-visit Dr. Celia rapp MD [facility] Work Phone: Start: [facility] Start: 08-31-2024 Non-patient / Non-visit Dr. Celia rapp MD [facility] Work Phone: Start: 08-31[facility] Start: 08-30-2024 Non-patient / Non-visit Dr. Celia rapp MD [facility] Work Phone: Start: 08-30[facility] Start: 08-29-2024 Non-patient / Non-visit Dr. Celia rapp MD [facility] Work Phone: Start: 08-29[facility] Start: 08-28-2024 Non-patient / Non-visit Dr. Celia rapp MD [facility] Work Phone: Start: 08-28[facility]20[facility]: Start: 08-27-2024 ambulatory Lisha Albin [facility] Start: 08-27-2024 End: 09-02-2024 Evaluation and management of inpatient Dr. Brody Maynard MD -[facility] Work Phone: Start: 08-27-2024 End: 09-02-2024 Dr. Brody Maynard MD -[facility] Work Phone: Start: 08-27-2024 Non-patient / Non-visit Dr. Celia rapp MD -[facility] Work Phone: Start: 08-27-2024 Dr. Celia Toribio MD -[facility] Work Phone: Start: 08-26-2024 Non-patient / Non-visit Dr. Celia rapp MD -[facility] Work Phone: Start: 08-26-2024 Dr. Celia Toribio MD -[facility] Work Phone: Start: 08-25-2024 Non-patient / Non-visit Dr. Lisha Talamantes DO [facility] Work Phone: Start: 08-25-2024 Dr. Lisha Talamantes [facility] Work Phone: Start: 08-25-2024 ambulatory Lisha Talamantes Facility:[facility] Start: 08-25-2024 Evaluation and management of inpatient Dr. Lisha Talamantes DO -[facility] Surgical 3 Work Phone: Start: 08-25-[address] Germain Morton MD Work Phone: [facility] Work Phone: Start: 07-15-2024 ambulatory Carla Constantino ty:[facility] Start: 07-15-[address] Carla Prather MD -[facility] Start: 05-17-2024 End: 05-17-2024 Telephone encounter Daija Morton MD Work Phone: [facility] Comment on above: Patient Update Start: 04-29-2024 End: 05-14-2024 Telephone encounter Daija Morton MD Work Phone: [facility] [place] Comment on above: Patient Update Start: 04-12-2024 ambulatory Carla Constantino ty:[facility] Start: 04-08-2024 ambulatory Maxi Curtis Facility[facility] Start: 04-07-2024 ambulatory [facility] Facility: [facility] Start: 04-07-2024 End: 04-10-2024 Evaluation and management of inpatient [facility] Facility:[facility] Start: 04-06-2024 ambulatory Kathi Ibrahim Facility :[facility] Start: 04-04-2024 End: 04-24-2024 Telephone encounter Daija Morton MD Work Phone: Internal [facility] Comment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 tomography guidance [...] on above: Performed By: #### TSCR ####[place] [id number] Start: 10-17-2019 Antibody screen Comment on above: Performed By: #### TSCR ####[place] [id number] Start: 10-08-2019 Electrocardiogram Start: 10-08-2019 Antibody screen Comment on above: Performed By: #### TSCR ####[place] [id number] Start: 09-12-2019 Antibody screen Comment on above: Performed By: #### [id number] #### [facility] [id number] [place] [id number] Start: 03-19-2019 Lipid 1996 panel - Serum or Plasma Anjel pantoja 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 Work Phone: Start: 06-25-[address] PRIYANKA [...] Start: 06-04-2031 Urine microalbumin profile [facility] Start: 12-13-2027 Diabetes Screening Diabetes Screening [facility] Start: 11-27-2026 Colonoscopy COLONOSCOPY [facility] Start: 11-27-2026 COLORECTAL CANCER SCREENING COLORECTAL CANCER SCREENING [facility] Start: 11-27-2026 Screening for malignant neoplasm of colon [facility] Start: 12-12-2025 Annual PCP Team Chronic Disease Visit Annual PCP Team Chronic Disease Visit [facility] Start: 02-17-2025 Influenza vaccination [facility] Start: 02-04-2025 DIABETES SCREEN DIABETES SCREEN [facility] Start: 02-04-2025 Diabetes Screening Diabetes Screening [facility] Start: 01-03-2025 [facility] Start: 01-01-2025 End: 01-01-2025 Patient encounter procedure 01/01/2025 2:00 PM EDT Office Visit [facility] [address] [place] [address] Anjel Braga APRN.CHANNEL MAN [address] [place] [address] 2 week follow up [facility] Comment on above: 2 week follow up Start: 12-26-2024 Patient discharge [facility] Start: 12-26-2024 Care planning and problem solving actions [facility] Start: 12-25-2024 End: 12-25-2024 Patient encounter procedure 12/25/2024 1:00 PM EDT Office Visit Pulmonary Medicine [address] [address] Priscilla Barillas MD [address] [place] [address] Other emphysema (HCC) [J43.8]; Smoker [F17.200] Pulmonary Medicine Comment on above: Other emphysema (HCC) [J43.8]; Smoker [F 17.200] Start: 12-25-2024 End: 12-25-2024 ambulatory Pulmonary Medicine Comment on above: Other emphysema (HCC) [J43.8]; Smoker [F 17.200] * Other emphysema (H CC) [J43.8]; Smoker [F17.200] Start: 12-22-2024 [facility] Start: 12-22-2024 Electroencephalogram [facility] Start: 12-19-2024 Referral to gastroenterology service [facility] Start: 12-18-2024 Admission procedure [facility] Start: 12-18-2024 Contact precautions [facility] Start: 12-18-2024 Inhalation therapy procedure [facility] Start: 12-17-2024 Following clinical pathway protocol [facility] Start: 12-17-2024 Application of intermittent pneumatic compression device [facility] Start: 12-17-2024 Aspiration precautions [facility] Start: 12-17-2024 Assessment of risk of venous thromboembolism [facility] Start: 12-17-2024 Cardiac monitoring [facility] Start: 12-17-2024 Catheterization of vein [facility] Start: 12-17-2024 Consultation [facility] Start: 12-17-2024 Elevation of head of bed [facility] Start: 12-17-2024 Exercises [facility] Start: 12-17-2024 Insertion of catheter into peripheral vein [facility] Start: 12-17-2024 Notification of physician [facility] Start: 12-17-2024 Oxygen therapy [facility] Start: 12-17-2024 Patient referral to dietitian [facility] Start: 12-17-2024 Providing care according to standard [facility] Start: 12-17-2024 Referral to occupational therapist [facility] Start: 12-17-2024 Referral to service [facility] Start: 12-17-2024 Speech therapy assessment [facility] Start: 12-17-2024 Tobacco use cessation education [facility] Start: 12-17-2024 Vital signs measurements [facility] Start: 12-17-2024 End: 12-17-2024 [facility] Start: 12-17-2024 MRI of brain without contrast [facility] Start: 12-17-2024 Verification routine [facility] Start: 12-17-2024 Admission procedure [facility] Start: 12-17-2024 Hospital admission, emergency, from emergency room, medical nature [facility] Start: 12-17-2024 Partial thromboplastin time, activated [facility] Start: 12-17-2024 Prothrombin time [facility] Start: 12-17-2024 Thyroid stimulating hormone measurement [facility] Start: 12-17-2024 Oxygen therapy [facility] Start: 12-17-2024 End: 12-18-2024 [facility] Start: 12-17-2024 End: 03-18-2025 Hemoglobin A1c in Blood HEMOGLOBIN A1C Lab Routine Medication management Expected: 12/17/2024, Expires: 03/18/2025 [facility] Work Phone: Comment on above: Expected: 12/17/2024, Expires: Start: 12-17-2024 End: 03-18-2025 Lipid 1996 panel - Serum or Plasma LIPID PANEL, FASTING Lab Routine Hyperlipidemia Expected: 12/17/2024, Expires: 03/18/2025 [facility] Comment on above: Expected: 12/17/2024, Expires: Start: 12-17-2024 Consultation [facility] Start: 12-16-2024 Referral to service [facility] Start: 12-16-2024 Patient discharge [facility] Start: 12-14-2024 Referral to occupational therapist [facility] Start: 12-14-2024 Referral to service [facility] Start: 12-13-2024 Contact precautions [facility] Start: 12-13-2024 Following clinical pathway protocol [facility] Start: 12-13-2024 Assessment of risk of venous thromboembolism [facility] Start: 12-13-2024 Continuous pulse oximetry [facility] Start: 12-13-2024 Inhalation therapy procedure [facility] Start: 12-13-2024 Insertion of catheter into peripheral vein [facility] Start: 12-13-2024 Introduction of urinary catheter [facility] Start: 12-13-2024 Measuring intake and output [facility] Start: 12-13-2024 Oxygen therapy [facility] Start: 12-13-2024 Providing care according to standard [facility] Start: 12-13-2024 Provision of activity privileges [facility] Start: 12-13-2024 Tobacco use cessation education [facility] Start: 12-13-2024 End: 12-13-2024 [facility] Start: 12-13-2024 Dual pressure spontaneous ventilation support [facility] Start: 12-13-2024 Verification routine [facility] Start: 12-13-2024 Admission procedure [facility] Start: 12-13-2024 Hospital admission, emergency, from emergency room, medical nature [facility] Start: 12-13-2024 [facility] Start: 12-13-2024 Bacteria identified in Blood by Culture Blood Culture [facility] Start: 12-13-2024 Blood culture [facility] Start: 12-13-2024 Respiratory Panel (PCR) Respiratory Panel (PCR) [facility] Start: 12-13-2024 Consultation [facility] Start: 12-13-2024 Patient referral to dietitian [facility] Start: 12-12-2024 End: 03-13-2025 Comprehensive metabolic 2000 panel - Serum or Plasma [facility] Comment on above: Expected: 12/12/2024, Expires: Start: 12-12-2024 End: 03-13-2025 Urinalysis complete panel - Urine [facility] Work Phone: Comment on above: Expected: 12/12/2024, Expires: Start: 12-12-2024 End: 12-12-2024 Patient encounter procedure [facility] Med [facility] Comment on above: Discharge from Nursing facility - Follow up Discharge from Nursi ng facility -see phone note 12/09 Start: 11-20-2024 Annual PCP Team Chronic Disease Visit Annual PCP Team Chronic Disease Visit [facility] Start: 09-03-2024 DIABETES SCREEN DIABETES SCREEN [facility] Start: 09-02-2024 Patient discharge [facility] Start: 09-01-2024 [facility] Start: 08-30-2024 Incentive spirometry [facility] Start: 08-29-2024 Consultation [facility] Start: 08-29-2024 Contact precautions [facility] Start: 08-27-2024 Application of intermittent pneumatic compression device [facility] Start: 08-27-2024 Admission procedure [facility] Start: 08-27-2024 Urine culture Urine Culture [facility] Start: 08-27-2024 [facility] Start: 08-27-2024 Oxygen therapy [facility] Start: 08-25-2024 Following clinical pathway protocol [facility] Start: 08-25-2024 Assessment of risk of venous thromboembolism [facility] Start: 08-25-2024 Inhalation therapy procedure [facility] Start: 08-25-2024 Insertion of catheter into peripheral vein [facility] Start: 08-25-2024 Measuring intake and output [facility] Start: 08-25-2024 Patient referral to dietitian [facility] Start: 08-25-2024 Providing care according to standard [facility] Start: 08-25-2024 Provision of activity privileges [facility] Start: 08-25-2024 Referral to occupational therapist [facility] Start: 08-25-2024 Referral to service [facility] Start: 08-25-2024 [facility] Start: 08-25-2024 Verification routine [facility] Start: 08-25-2024 Hospital admission, emergency, from emergency room, medical nature [facility] Start: 08-25-2024 Admission procedure [facility] Start: 08-25-2024 Enteric precautions [facility] Start: 08-25-2024 End: 08-26-2024 [facility] Start: 08-25-2024 Consultation [facility] Start: 06-19-2024 Advance Directive Discussion Advance Directive Discussion [facility] Start: 06-19-2024 Medicare Advantage Annual Wellness Visit Medicare Advantage Annual Wellness Visit [facility] Start: 06-08-2024 Annual PCP Team Chronic Disease Visit Annual PCP Team Chronic Disease Visit [facility] Start: 06-08-2024 BP Controlled (<130/80) BP Controlled (<130/80) [facility] Start: 2024 RSV Vaccine (1 - 1-dose 75+ series) RSV Vaccine (1 - 1-dose 75+ series) [facility] Start: 03-19-2024 Lipid 1996 panel - Serum or Plasma Lipid Screening [facility] Start: 03-19-2024 Lipid panel Lipid Screening [facility] Start: 03-19-2024 LIPID SCREEN LIPID SCREEN [facility] Start: 02-18-2024 Covid-19 Vaccine () Covid-19 Vaccine () [facility] Start: 02-18-2024 Influenza vaccination Influenza Vaccine (#1) [facility] Start: 01-02-2024 End: 01-02-2024 Patient encounter procedure [facility] Comment on above: PVD FOLLOW UP Start: 01-01-2024 End: 01-01-2024 Patient encounter procedure 01/01/2024 9:20 AM EDT Office Visit [facility] [address] [place] [place], [place] [id number] Daija Morton MD [address] [place] [address] 4-6 wk follow up [facility] Comment on above: 4-6 wk follow up Start: 11-21-2023 End: 02-20-2024 CBC W Auto Differential panel - Blood COMPLETE BLOOD COUNT AND DIFFERENTIAL Lab Routine COPD with chronic bronchitis (HCC) Expected: 11/21/2023, Expires: 02/20/2024 [facility] Comment on above: Expected: 11/21/2023, Expires: Start: 11-21-2023 End: 02-20-2024 Comprehensive metabolic 2000 panel - Serum or Plasma COMPREHENSIVE METABOLIC PANEL Lab Routine Mixed hyperlipidemia Expected: 11/21/2023, Expires: 02/20/2024 [facility] Comment on above: Expected: 11/21/2023, Expires: Start: 11-21-2023 End: 02-20-2024 Hemoglobin A1c in Blood HEMOGLOBIN A1C Lab Routine Mixed hyperlipidemia Expected: 11/21/2023, Expires: 02/20/2024 [facility] Work Phone: Comment on above: Expected: 11/21/2023, Expires: Start: 11-21-2023 End: 02-20-2024 Lipid 1996 panel - Serum or Plasma LIPID PANEL BASIC Lab Routine Mixed hyperlipidemia Expected: 11/21/2023, Expires: 02/20/2024 [facility] Comment on above: Expected: 11/21/2023, Expires: Start: 11-21-2023 End: 11-21-2023 Patient encounter procedure [facility] Comment on above: hospital discharge/ senior care fractur e of pelvic hospital discharge/ senior care fracture of pelvic(See phone encounter) Start: 11-21-2023 End: 11-21-2023 Patient encounter procedure 11/21/2023 9:40 AM EDT Office Visit [facility] [address] [place] [address] Rebekah Luu PA-C [address] [place] [address] follow up residential / copd Family [facility] Comment on above: follow up residential / copd Start: 08-28-2023 ANNUAL PCP TEAM CHRONIC DISEASE VISIT ANNUAL PCP TEAM CHRONIC DISEASE VISIT [facility] Start: 08-02-2023 Patient discharge [facility] Start: 08-01-2023 Referral to occupational therapist [facility] Start: 08-01-2023 Referral to service [facility] Start: 07-31-2023 Speech therapy assessment [facility] Start: 07-31-2023 Oxygen therapy [facility] Start: 07-31-2023 Respiratory secretion precautions [facility] Start: 07-31-2023 Following clinical pathway protocol [facility] Start: 07-31-2023 Continuous pulse oximetry [facility] Start: 07-31-2023 Physiotherapy of chest [facility] Start: 07-31-2023 Hospital admission, emergency, from emergency room, medical nature [facility] Start: 07-31-2023 Inhalation therapy procedure [facility] Start: 07-30-2023 Dual pressure spontaneous ventilation support [facility] Start: 07-30-2023 Admission procedure [facility] Start: 07-30-2023 [facility] Start: 07-26-2023 Patient discharge [facility] Start: 07-25-2023 Referral to occupational therapist [facility] Start: 07-25-2023 Referral to service [facility] Start: 07-25-2023 Inhalation therapy procedure [facility] Start: 07-24-2023 Following clinical pathway protocol [facility] Start: 07-24-2023 Assessment of risk of venous thromboembolism [facility] Start: 07-24-2023 Insertion of catheter into peripheral vein [facility] Start: 07-24-2023 Oxygen therapy [facility] Start: 07-24-2023 Providing care according to standard [facility] Start: 07-24-2023 Referral to service [facility] Start: 07-24-2023 [facility] Start: 07-24-2023 Verification routine [facility] Start: 07-24-2023 Admission procedure [facility] Start: 07-24-2023 Hospital admission, emergency, from emergency room, medical nature [facility] Start: 07-24-2023 Consultation [facility] Start: 07-24-2023 Consultation [facility] Start: 07-24-2023 Patient referral to dietitian [facility] Start: 06-19-2023 Advance Directive Discussion Advance Directive Discussion [facility] Start: 04-04-2023 Patient discharge [facility] Start: 04-03-2023 Consultation [facility] Start: 04-02-2023 Contact precautions [facility] Start: 03-30-2023 End: 03-30-2023 Following clinical pathway protocol [facility] Start: 03-30-2023 Assessment of risk of venous thromboembolism [facility] Start: 03-30-2023 Catheterization of vein [facility] Start: 03-30-2023 Inhalation therapy procedure [facility] Start: 03-30-2023 Insertion of catheter into peripheral vein [facility] Start: 03-30-2023 Oxygen therapy [facility] Start: 03-30-2023 Providing care according to standard [facility] Start: 03-30-2023 Provision of activity privileges [facility] Start: 03-30-2023 Referral to occupational therapist [facility] Start: 03-30-2023 Referral to service [facility] Start: 03-30-2023 End: 03-30-2023 [facility] Start: 03-30-2023 End: 03-30-2023 Blood culture [facility] Start: 03-30-2023 Verification routine [facility] Start: 03-30-2023 Hospital admission, emergency, from emergency room, medical nature [facility] Start: 03-30-2023 Admission procedure [facility] Start: 03-30-2023 Bacteria identified in Blood by Culture Blood Culture [facility] Start: 03-30-2023 Consultation [facility] Start: 03-30-2023 Inhalation therapy procedure [facility] Start: 03-29-2023 [facility] Start: 03-29-2023 Emergency department visit low/moder severity EMERGENCY DEPT VISIT [facility] Start: 03-10-2023 ANNUAL PCP TEAM CHRONIC DISEASE VISIT ANNUAL PCP TEAM CHRONIC DISEASE VISIT [facility] Start: 02-17-2023 Covid-19 Vaccine ( season) Covid-19 Vaccine ( season) [facility] Start: 02-17-2023 Influenza vaccination [facility] Start: 02-04-2023 ANNUAL PCP TEAM CHRONIC DISEASE VISIT ANNUAL PCP TEAM CHRONIC DISEASE VISIT [facility] Start: 01-28-2023 ANNUAL PCP TEAM CHRONIC DISEASE VISIT ANNUAL PCP TEAM CHRONIC DISEASE VISIT [facility] Start: 01-14-2023 SHINGRIX VACCINE (2 of 3) SHINGRIX VACCINE (2 of 3) [facility] Comment on above: Postponed from 11/19/2020 (Declined at t his time) Start: 01-03-2023 Urine microalbumin profile DTAP,TDAP,TD (2 - Td or Tdap) [facility] Start: 11-17-2022 ANNUAL PCP TEAM CHRONIC DISEASE VISIT ANNUAL PCP TEAM CHRONIC DISEASE VISIT [facility] Start: 10-26-2022 COVID-19 VACCINE (4 - Moderna series) COVID-19 VACCINE (4 - Moderna series) [facility] Start: 10-21-2022 [facility] Start: 10-07-2022 ANNUAL PCP TEAM CHRONIC DISEASE VISIT ANNUAL PCP TEAM CHRONIC DISEASE VISIT [facility] Start: 09-15-2022 ANNUAL PCP TEAM CHRONIC DISEASE VISIT ANNUAL PCP TEAM CHRONIC DISEASE VISIT [facility] Start: 06-19-2022 ADVANCE DIRECTIVE DISCUSSION ADVANCE DIRECTIVE DISCUSSION [facility] Start: 04-02-2022 ANNUAL PCP TEAM CHRONIC DISEASE VISIT ANNUAL PCP TEAM CHRONIC DISEASE VISIT [facility] Start: 03-29-2022 End: 05-29-2022 Hemoglobin A1c in Blood HGB A1C Lab Routine Medication management Expected: 03/29/2022, Expires: 05/29/2022 [facility] Work Phone: Comment on above: Expected: 03/29/2022, Expires: 2 Start: 03-29-2022 End: 05-29-2022 Lipid 1996 panel - Serum or Plasma LIPID PANEL BASIC Lab Routine Hyperlipidemia Expected: 03/29/2022, Expires: 05/29/2022 [facility] Work Phone: Comment on above: Expected: 03/29/2022, Expires: 2 Start: 03-29-2022 End: 05-29-2022 SCHEDULE LAB TESTING SCHEDULE LAB TESTING Lab Routine Expected: 03/29/2022, Expires: 05/29/2022 [facility] Work Phone: Comment on above: Expected: 03/29/2022, Expires: 2 Start: 02-17-2022 Influenza vaccination INFLUENZA (#1) [facility] Start: 01-14-2022 End: 03-16-2022 CBC W Auto Differential panel - Blood [facility] Work Phone: Comment on above: Expected: 01/14/2022, Expires: 2 Start: 11-30-2021 Patient discharge [facility] Work Phone: Start: 11-28-2021 Care planning and problem solving actions [facility] Work Phone: Start: 11-26-2021 Administration of blood product [facility] Work Phone: Start: 11-26-2021 Catheterization of vein [facility] Work Phone: Start: 11-26-2021 Notification of physician [facility] Work Phone: Start: 11-26-2021 Referral to occupational therapist [facility] Work Phone: Start: 11-26-2021 End: 11-26-2021 Referral to service [facility] Work Phone: Start: 11-26-2021 Catheterization of vein [facility] Work Phone: Start: 11-26-2021 Following clinical pathway protocol [facility] Work Phone: Start: 11-26-2021 Inhalation therapy procedure [facility] Work Phone: Start: 11-25-2021 Assessment of risk of venous thromboembolism [facility] Work Phone: Start: 11-25-2021 Insertion of catheter into peripheral vein [facility] Work Phone: Start: 11-25-2021 Measuring intake and output [facility] Work Phone: Start: 11-25-2021 Oxygen therapy [facility] Work Phone: Start: 11-25-2021 Providing care according to standard [facility] Work Phone: Start: 11-25-2021 Provision of activity privileges [facility] Work Phone: Start: 11-25-2021 Referral to gastroenterology service [facility] Work Phone: Start: 11-25-2021 [facility] Work Phone: Start: 11-25-2021 Admission procedure [facility] Work Phone: Start: 11-25-2021 End: 11-25-2021 Administration of blood product [facility] Work Phone: Start: 11-25-2021 Patient referral to dietitian [facility] Work Phone: Start: 10-23-2021 End: 12-23-2021 PT panel - Platelet poor plasma by Coagulation assay PROTHROMBIN TIME/PT Lab Routine Anticoagulation goal of INR 2 to 3 Expected: 10/23/2021, Expires: 12/23/2021 [facility] Work Phone: Comment on above: Expected: 10/23/2021, Expires: 2 Start: 10-19-2021 End: 12-19-2021 Hemoglobin A1c/Hemoglobin.total in Blood HGB A1C Lab Routine Medication management Expected: 10/19/2021, Expires: 12/19/2021 [facility] Work Phone: Comment on above: Expected: 10/19/2021, Expires: 2 Start: 10-19-2021 End: 12-19-2021 LIPID PANEL BASIC LIPID PANEL BASIC Lab Routine Hyperlipidemia Expected: 10/19/2021, Expires: 12/19/2021 [facility] Work Phone: Comment on above: Expected: 10/19/2021, Expires: 2 Start: 10-19-2021 End: 12-19-2021 SCHEDULE LAB TESTING SCHEDULE LAB TESTING Lab Routine Expected: 10/19/2021, Expires: 12/19/2021 [facility] Work Phone: Comment on above: Expected: 10/19/2021, Expires: 2 Start: 10-17-2021 Colonoscopy COLONOSCOPY [facility] Start: 10-17-2021 COLORECTAL CANCER SCREENING COLORECTAL CANCER SCREENING [facility] Start: 09-22-2021 End: 11-22-2021 CBC W Auto Differential panel - Blood CBC + DIFF Lab Routine Anemia, unspecified type Expected: 09/22/2021, Expires: 11/22/2021 [facility] Work Phone: Comment on above: Expected: 09/22/2021, Expires: 2 Start: 09-22-2021 End: 11-22-2021 PT panel - Platelet poor plasma by Coagulation assay PROTHROMBIN TIME/PT Lab Routine Encounter for monitoring Coumadin therapy Expected: 09/22/2021, Expires: 11/22/2021 [facility] Work Phone: Comment on above: Expected: 09/22/2021, Expires: Start: 08-21-2021 Patient discharge [facility] Work Phone: Start: 08-19-2021 Application of intermittent pneumatic compression device [facility] Work Phone: Start: 08-19-2021 Oxygen therapy [facility] Work Phone: Start: 08-19-2021 Tobacco use cessation education [facility] Work Phone: Start: 08-19-2021 [facility] Work Phone: Start: 08-19-2021 Care planning and problem solving actions [facility] Work Phone: Start: 08-19-2021 Administration of blood product [facility] Work Phone: Start: 08-19-2021 Referral to carboy filler [facility] Work Phone: Start: 08-19-2021 [facility] Work Phone: Start: 08-19-2021 Referral to occupational therapist [facility] Work Phone: Start: 08-19-2021 Referral to service [facility] Work Phone: Start: 08-19-2021 Application of intermittent pneumatic compression device [facility] Work Phone: Start: 08-19-2021 Administration of blood product [facility] Work Phone: Start: 08-19-2021 Administration of blood product [facility] Work Phone: Start: 08-19-2021 Inhalation therapy procedure [facility] Work Phone: Start: 08-18-2021 Following clinical pathway protocol [facility] Work Phone: Start: 08-18-2021 Ambulation without limitation [facility] Work Phone: Start: 08-18-2021 Assessment of risk of venous thromboembolism [facility] Work Phone: Start: 08-18-2021 Insertion of catheter into peripheral vein [facility] Work Phone: Start: 08-18-2021 Providing care according to standard [facility] Work Phone: Start: 08-18-2021 [facility] Work Phone: Start: 08-18-2021 Admission procedure [facility] Work Phone: Start: 06-19-2021 ADVANCE DIRECTIVE DISCUSSION ADVANCE DIRECTIVE DISCUSSION [facility] Start: 06-04-2021 Smpl repair scalp/neck/ax/genit/trunk 2.6-7.5cm RPR S/N/AX/GEN/TRNK2.6-7.5C M [facility] Work Phone: Start: 11-19-2020 SHINGRIX VACCINE (2 of 3) SHINGRIX VACCINE (2 of 3) [facility] Start: 11-05-2020 COVID-19 VACCINE (2 - Moderna 3-dose series) COVID-19 VACCINE (2 - Moderna 3-dose series) [facility] Start: 11-05-2020 COVID-19 VACCINE (2 - Moderna series) COVID-19 VACCINE (2 - Moderna series) [facility] Start: 03-19-2020 Hepatitis B surface antibody level LDL CHOLESTEROL [facility] Start: 11-15-2015 FECAL OCCULT BLOOD FECAL OCCULT BLOOD [facility] Start: 11-15-2015 Screening for malignant neoplasm of colon Fecal Occult Blood [facility] Start: 01-17-2014 Medicare Annual Wellness Visit Medicare Annual Wellness Visit [facility] Start: 2009 RSV Vaccine (1 - 1-dose 60+ series) RSV Vaccine (1 - 1-dose 60+ series) [facility] Start: 2009 RSV Vaccine (1 - Risk 60-74 years 1-dose series) RSV Vaccine (1 - Risk 60-74 years 1-dose series) [facility] Start: 1999 Influenza vaccination LUNG CANCER SCREENING [facility] Start: 1999 Screening for malignant neoplasm of lung Lung Cancer Screening [facility] Start: 1999 SHINGRIX VACCINE (1 of 2) SHINGRIX VACCINE (1 of 2) [facility] Start: 1994 COLOGUARD (FIT-DNA) COLOGUARD (FIT-DNA) [facility] Start: [address] COLONOGRAPHY [facility] Start: 1994 Screening for malignant neoplasm of colon [facility] Start: 1994 SIGMOIDOSCOPY SIGMOIDOSCOPY [facility] Start: 1979 Zoledronic acid therapy ALPHA-1 ANTITRYPSIN DEFICIENCY SCREENING [facility] Start: 1967 BP CONTROLLED (<130/80) BP CONTROLLED (<130/80) [facility] Bacteria identified in Urine by Culture URINE CULTURE Microbiology Routine Dysuria Ordered: 09/15/2021 [facility] Work Phone: Comment on above: Ordered: 09/15/2021 Bacteria identified in Urine by Culture Urine Culture [facility] Bacteria identified in Urine by Culture URINE CULTURE Microbiology Routine Dysuria 03/23/2024 2:06 PM EDT [facility] Work Phone: Clostridioides diffi cile DNA [Presence] in Unspecified specimen by ALEENA with probe detection [facility] End: 01-28-2023 ECG COMPLETE ECG COMPLETE ECG Routine Essential hypertension Chest pain, unspecified type 1 Occurrences starting 01/28/2022 until 01/28/2023 [facility] Work Phone: Comment on above: 1 Occurrences starting 01/28/2022 until 01/28/2023 Hemoglobin A1c/Hemoglobin.total in Blood [facility] Hemoglobin.gastroint estinal. lower [Presence] in Stool by Immunoassay FECAL OCCULT BLOOD TEST Lab Routine Acute blood loss anemia Angiodysplasia of colon with hemorrhage Ordered: 01/14/2022 [facility] Work Phone: Comment on above: Ordered: 01/14/2022 INR in Blood by Coag ulation assay [facility] Lactic acid measurement [facility] End: 12-05-2022 LUNG DIFFUSION CAPACITY (DLCO) LUNG DIFFUSION CAPACITY (DLCO) PFT Routine COPD with chronic bronchitis (HCC) 1 Occurrences starting 11/05/2021 until 12/05/2022 [facility] Work Phone: Comment on above: 1 Occurrences starting 11/05/2021 until 12/05/2022 End: 01-15-2026 LUNG DIFFUSION CAPACITY (DLCO) LUNG DIFFUSION CAPACITY (DLCO) PFT Routine SOB (shortness of breath) 1 Occurrences starting 12/17/2024 until 01/15/2026 [facility] Comment on above: 1 Occurrences starting 12/17/2024 until 01/15/2026 Nucleic acid assay [facility] Patient Education [facility] Work Phone: Patient referral [facility] Work Phone: End: 06-18-2023 PVR LEG COREY VAS LAB PVR LEG COREY VAS LAB Vascular Lab Routine PVD (peripheral vascular disease) (HCC) 1 Occurrences starting 01/31/2022 until 06/18/2023 [facility] Work Phone: Comment on above: 1 Occurrences starting 01/31/2022 until 06/18/2023 PVR LEG COREY VAS LAB PVR LEG COREY VAS LAB Vascular Lab Routine Peripheral arterial disease (HCC) PVD (peripheral vascular disease) (HCC) 1 Occurrences starting 12/26/2022 [facility] Work Phone: Comment on above: 1 Occurrences starting 12/26/2022 End: 12-05-2022 Radiologic exam chest 2 views XR CHEST 2V FRONTAL/LAT Radiology Routine COPD with chronic bronchitis (HCC) 1 Occurrences starting 11/05/2021 until 12/05/2022 [facility] Work Phone: Comment on above: 1 Occurrences starting 11/05/2021 until 12/05/2022 Respiratory pathogen s DNA and RNA panel - Respiratory specimen by ALEENA with probe detection [facility] End: 01-15-2026 SPIROMETRY WITH DILATOR IF OBSTRUCTED SPIROMETRY WITH DILATOR IF OBSTRUCTED PFT Routine SOB (shortness of breath) 1 Occurrences starting 12/17/2024 until 01/15/2026 [facility] Work Phone: Comment on above: 1 Occurrences starting 12/17/2024 until 01/15/2026 Troponin T.cardiac [Mass/volume] in Serum or Plasma by High sensitivity method [facility] Troponin T.cardiac [Mass/volume] in Serum or Plasma by High sensitivity method [facility] Urinalysis complete panel - Urine URINALYSIS, WITH MICROSCOPIC Lab Routine Dysuria Hematuria, unspecified type Ordered: 09/15/2021 [facility] Work Phone: Comment on above: Ordered: 09/15/2021 Urinalysis complete panel - Urine UA WITH CULTURE IF INDICATED Lab Routine Dysuria Ordered: 09/15/2021 [facility] Work Phone: Comment on above: Ordered: 09/15/2021 End: 01-01-2025 US Lower extremity artery - bilateral PVR LEG COREY VAS LAB Vascular Lab Routine Peripheral arterial disease (HCC) 1 Occurrences starting 01/02/2024 until 01/01/2025 [facility] Work Phone: Comment on above: 1 Occurrences starting 01/02/2024 until 01/01/2025 End: 01-11-2026 XR Chest PA and Lateral XR CHEST 2V FRONTAL/LAT Radiology Routine Wheezing 1 Occurrences starting 12/12/2024 until 01/11/2026 [facility] Comment on above: 1 Occurrences starting 12/12/2024 until 01/11/2026 XR Chest PA and Lateral XR CHEST 2V FRONTAL/LAT Radiology Routine Wheezing 12/12/2024 3:36 PM EDT [facility] Immunizations Immunization Date Immunization Notes Care Provider [facility] 03-31-2023 Influenza High-Dose Quadrivalent Dr. Daija Morton Work Phone: [facility] 03-31-2023 influenza virus vaccine, unspecified formulation Daija Morton MD Work Phone: [facility] 06-04-2021 tetanus toxoid, redu marianna diphtheria toxoid, and acellular pertussis vaccine, adsorbed Dr. Daija Morton Work Phone: [facility] 04-05-2021 influenza, high-dose , quadrivalent vaccine (FLUZONE HIGH DOSE QUADRIVALENT) Lizette Ulloa RN Work Phone: [facility] 04-05-2021 influenza virus vaccine, unspecified formulation Anjel Braga 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 Work Phone: [facility] 10-08-2020 COVID-19 vaccine, fu ll dose (MODERNA) Lizette Ulloa RN Work Phone: [facility] 09-24-2020 zoster vaccine, live Harriett B monie RADIO MECHANIC HELPER.CNC ROUTER OPERATOR Work Phone: [facility] 09-16-2020 influenza, high-dose , quadrivalent vaccine (FLUZONE HIGH DOSE QUADRIVALENT) Respiratory Wstr Work Phone: [facility] Work Phone: 08-09-2020 influenza, injectabl e, quadrivalent, contains preservative Harriett Albert RADIO MECHANIC HELPER.CNC ROUTER OPERATOR Work Phone: [facility] 08-09-2020 influenza, injectabl e, quadrivalent, preservative free Dr. Daija Morton Work Phone: [facility] 08-09-2020 influenza, seasonal, injectable Dr. Daija Morton Work Phone: [facility] 08-09-2020 influenza, seasonal, injectable, preservative free Harriett Albert RADIO MECHANIC HELPER.CNC ROUTER OPERATOR Work Phone: [facility] 05-21-2020 influenza, high-dose , quadrivalent vaccine (FLUZONE HIGH DOSE QUADRIVALENT) Lizette Ulloa RN Work Phone: [facility] Work Phone: 07-11-2019 influenza, high dose seasonal, preservative-free Lizette Mayi RN Work Phone: [facility] Work Phone: 05-18-2018 pneumococcal polysaccharide vaccine, 23 valent Lizette Ulloa RN Work Phone: [facility] 03-14-2018 influenza, high dose seasonal, preservative-free Lizette Toccaceli RN Work Phone: [facility] 05-31-2017 influenza, high dose seasonal, preservative-free Lizette Toccaceli RN Work Phone: [facility] 06-01-2016 influenza, high dose seasonal, preservative-free Lizette Toccaceli RN Work Phone: [facility] Work Phone: 03-23-2016 influenza, injectabl e, quadrivalent, contains preservative Harriett Albert RADIO MECHANIC HELPER.CNC ROUTER OPERATOR Work Phone: [facility] 03-23-2016 influenza, injectabl e, quadrivalent, preservative free Dr. Daija Morton Work Phone: [facility] 03-23-2016 influenza, seasonal, injectable Dr. Daija Morton Work Phone: [facility] 03-23-2016 influenza, seasonal, injectable, preservative free Lizette Ulloa RN Work Phone: [facility] Work Phone: 07-14-2015 pneumococcal conjuga te vaccine, 13 valent Lizette Ulloa RN Work Phone: [facility] Work Phone: 09-09-2014 influenza, injectabl e, quadrivalent, contains preservative Harriett Albert RADIO MECHANIC HELPER.CNC ROUTER OPERATOR Work Phone: [facility] 09-09-2014 influenza, injectabl e, quadrivalent, preservative free Dr. Daija Morton Work Phone: [facility] 09-09-2014 influenza, seasonal, injectable Dr. Daija Morton Work Phone: [facility] 09-09-2014 influenza, seasonal, injectable, preservative free Lizette Ulloa RN Work Phone: [facility] Work Phone: 03-25-2013 pneumococcal polysaccharide vaccine, 23 valent Lizette Ulloa RN Work Phone: [facility] Work Phone: 03-25-[address] Nemesio Morton Work Phone: [facility] Work Phone: 03-25-2013 pneumococcal vaccine , unspecified formulation Respiratory Wstr Work Phone: [facility] Work Phone: 03-24-[address] Daija Morton Work Phone: [facility] 03-24-2013 influenza virus vaccine, unspecified formulation Lizette Ulloa RN Work Phone: [facility] Work Phone: 03-24-2013 influenza, seasonal, injectable Harriett Albert RADIO MECHANIC HELPER.CNC ROUTER OPERATOR Work Phone: [facility] 03-24-2013 influenza, seasonal, injectable, preservative free Lizette Ulloa RN Work Phone: [facility] Work Phone: 01-03-2013 tetanus toxoid, redu marianna diphtheria toxoid, and acellular pertussis vaccine, adsorbed Lizette Ulloa RN Work Phone: [facility] Payers Date Payer Category Payer Unknown [id number] 2024 Medicare (Managed Care) [id number] 2024 Medicaid [id number] 2024 Medicare [id number] 2024 Self-pay [id number] 2023 Private Health Insurance [id number] 2022 Unknown [id number] 2021 Medicare [facility] AARP MEDICAR E [facility] AAR MEDICARE HMO [id number] 2021-Present [phone] [address] [address] [place] [address] HMO [id number] 2017 Medicaid [id number] 2017 Medicaid [id number] 2014 Medicare [id number] 2014 Medicare [id number] .[id number] 2014 Medicare [id number] 1949 Unknown [id number] 2..840.1.504750.3.579.2.6 27 1949 Unknown [id number] .16.840.1.628698.3.579.2.6 27 Private Health Insurance [facility] HMO IN [facility] [id number] Unknown [id number] Unknown [id number] Unknown [id number] 2.16.840.1.673769.3.579.2.4 62 Unknown [id number] 2.16.840.1.026898.3.579.2.4 62 Unknown [id number] 2.16.840.1.401466.3.579.2.4 62 Unknown [id number] 2.16.840.1.067039.3.579.2.4 62 Unknown [id number] 2.16.840.1.194053.3.579.2.4 62 Unknown [id number] 2.16.840.1.664634.3.579.2.4 62 Unknown [id number] 2.16.840.1.687604.3.579.2.4 62 Unknown [id number] 2.16.840.1.959482.3.579.2.4 62 Unknown [id number] 2.16.840.1.553017.3.579.2.4 62 Unknown [id number] 2.16.840.1.944206.3.579.2.4 62 Unknown [id number] 2.16.840.1.631736.3.579.2.4 62 Unknown [id number] 2.16.840.1.882903.3.579.2.4 62 Unknown [id number] 2.16.840.1.373483.3.579.2.4 62 Unknown [id number] 2.16.840.1.061962.3.579.2.4 62 Unknown [id number] 2.16.840.1.158069.3.579.2.4 62 Unknown [id number] 2.16.840.1.641687.3.579.2.4 62 Unknown [id number] 2.16.840.1.976964.3.579.2.4 62 Unknown [id number] 2.16.840.1.287471.3.579.2.4 62 Unknown [id number] 2.16.840.1.291234.3.579.2.4 62 Unknown [id number] 2.16.840.1.823971.3.579.2.4 62 Unknown [id number] 2.16.840.1.671993.3.579.2.4 62 Unknown [id number] 2.16.840.1.624811.3.579.2.4 62 Unknown [id number] 2.16.840.1.898908.3.579.2.4 62 Unknown [id number] 2.16.840.1.699703.3.579.2.4 62 Unknown [id number] 2.16.840.1.797791.3.579.2.4 62 Unknown [id number] 2.16.840.1.388027.3.579.2.4 62 Unknown [id number] 2.16.840.1.556813.3.579.2.4 62 Unknown [id number] 2.16.840.1.658654.3.579.2.4 62 Unknown [id number] 2.16.840.1.401141.3.579.2.4 62 Unknown [id number] 2.16.840.1.631231.3.579.2.4 62 Unknown [id number] 2.16.840.1.152026.3.579.2.4 62 Unknown [id number] 2.16.840.1.306937.3.579.2.4 62 Unknown [id number] 2.16.840.1.873893.3.579.2.4 62 Unknown [id number] 2.16.840.1.210663.3.579.2.4 62 Unknown [id number] 2.16.840.1.169606.3.579.2.4 62 Unknown [id number] 2.16.840.1.113840.3.579.2.4 62 Unknown [id number] 2.16.840.1.125741.3.579.2.4 62 Unknown [id number] 2.16.840.1.098466.3.579.2.4 62 Unknown [id number] 2.16.840.1.865143.3.579.2.4 62 Unknown [id number] 2.16.840.1.285254.3.579.2.4 62 Unknown [id number] 2.16.840.1.758035.3.579.2.4 62 Unknown [id number] 2.16.840.1.729132.3.579.2.4 62 Unknown [id number] 2.16.840.1.355913.3.579.2.4 62 Unknown [id number] 2.16.840.1.379252.3.579.2.4 62 Social History Date Type Detail Facility Start: 04-10-2020 Tobacco smoking stat us PAIS Ex-smoker [facility] Start: 06-19-1964 History of tobacco use Cigarette Smo ker [facility] Start: 04-10-2020 End: 12-26-2022 Cigarettes smoked current (pack per day) - Reported 2 [facility] Start: 04-10-2020 End: 03-23-2024 Tobacco use and exposure Smokeless tobacco non-user [facility] Start: 08-26-2021 End: 12-12-2024 Alcohol intake Current non-drinker of alcohol (finding) [facility] Start: 04-16-2015 History SDOH Alcohol Comment History of alcohol abuse. I cut that out. [facility] Start: 12-17-2019 History SDOH Financial 5 [facility] Start: 12-17-2019 History SDOH Food Worry 2 [facility] Start: 12-17-2019 History SDOH Food Scarcity 1 [facility] Start: 08-22-2019 End: 01-31-2022 Tobacco Comment patient started using patches [facility] Start: 1950 Sex Assigned At Not on file [facility] Start: 10-12-2020 End: 03-10-2022 Exposure to SARS-CoV-2 (event) Not sure [facility] Start: 09-15-2021 End: 01-03-2025 Tobacco smoking status NHIS Smokes tobacco daily [facility] Start: 09-17-2021 End: 04-02-2023 Tobacco smoking status NHIS Unknown if ever smoked [facility] Start: 01-20-2021 None [facility] Start: 12-16-2019 Long-Term [facility] Start: 08-09-2020 Cigarettes [facility] Start: 1950 Sex Assigned At Male [facility] Start: 09-14-2021 End: 01-28-2022 Exposure to SARS-CoV-2 (event) Unable to assess [facility] Start: 05-14-2018 Tobacco smoking status Light t obacco smoker (finding) [facility] Sex Assigned At Sex [facility] Start: 12-17-2019 End: 12-26-2022 Tobacco use panel [facility] How hard is it for y ou to pay for the very basics like food, housing, medical care, and heating Not hard at all [facility] (I/We) worried whemauricio er (my/our) food would run out before (I/we) got money to buy more. Sometimes true [facility] The food that (I/we) bought just didn't last, and (I/we) didn't have money to get more. Never true [facility] Start: 06-19-1964 History of tobacco use Current smoke r [facility] Start: 08-25-2024 End: 08-25-2024 Tobacco smoking status NHIS Current some day smoker [facility] Start: 08-25-2024 End: 09-02-2024 Sex Male (finding) [facility] Medical Equipment Procedure Code Equipment Code Equipment Original Text Equipment Identifier Dates EGD, with monitored anesthesia care [id number] [facility] Start: 12-23-2024 Graft [place] 7mm T hin Wall Heparin Propaten Ptfe 80cm 60cm Vascular Removable - [id number] Start: 10-10-2019 Patch Cv 8x.8cm Tapr Vsgrd Bov - [id number] Start: 10-23-2013 Comment on above: Description: Implant ed left femoral artery Patch Vascu-Guar d Taper Bovine Pericardial 8x.8cm Cardiovascular Ivor - [id number] Start: 10-08-2019 Stent Palmaz Gen esis Opta Pro Flexsegment 8mm 40mm Large Stainless Steel 80 - [id number] Start: 10-08-2019 Stent Palmaz Gen esis Opta Pro Flexsegment 8mm 40mm Large Stainless Steel 80 - [id number] Start: 10-08-2019 Stent Trchbr 7mm 7fr 38mm 120 - [id number] Start: 10-23-2013 Comment on above: Description: Second stent lot #[id number]. exp. 03/2016 Stent Vasc 8mm 1 5cm 120cm .035 - [id number] Start: 10-23-2013 Comment on above: Description: Implant ed in left iliac artery Stent Trchbr 7mm 7fr 38mm 120 - [id number] Start: 10-23-2013 Stent Corey 10mm 8 0mm 120cm .035 - [id number] Start: 10-23-2013 Comment on above: Description: Implant ed in right iliac artery Stent Corey 10mm 8 0mm 120cm .035 - [id number] Start: 10-23-2013 Comment on above: Description: Implant ed in right iliac artery Stent Icast 8mm Ptfe Stainless Steel 59mm 80cm Tracheobronchial Covered - [id number] Start: 10-08-2019 Stent Icast 8mm Ptfe Stainless Steel 59mm 80cm Tracheobronchial Covered - [id number] Start: 10-08-2019 Goals Date Patient Goal Desired Activity /State Personal health goal Personal health goal Comment on above: Formatting of this n ote might be different from the original. Relief of back pain Comment on above: Formatting of this n ote might be different from the original. Relief of back pain Functional Status Date Assessment Result Facility 12-26-2024 [facility] Work Phone: 12-16-2024 Functional status With Assist of 1 [facility] Work Phone: 12-16-2024 Functional status Ambulates;Back to bed [facility] Work Phone: 09-02-2024 Functional status With Assist of 1 [facility] Work Phone: 09-01-2024 Functional status Bathroom Privilege [facility] Work Phone: 08-02-2023 Functional status With Assist of 1 [facility] Work Phone: 08-01-2023 Functional status Bedrest [facility] Work Phone: 07-26-2023 Functional status Chair [facility] Work Phone: 07-26-2023 Functional status Bedrest [facility] Work Phone: 07-25-2023 Functional status None [facility] Work Phone: 04-04-2023 Functional status Up ad chadwick;Bath room Privilege [facility] Work Phone: 10-22-2022 Functional Status Minimum assistance [facility]3] 10-22-2022 Functional Status Standard Safet y ID band on, Call device within reach, Bed in low position, Wheels locked, Upper/Half-Length side-rails up, Phone within reach, Bedside Cart Locked [facility] 11-30-2021 Functional status Ambulates [facility] Work Phone: 09-29-2021 Functional Status [facility] 09-13-2021 Are you deaf, or do you have serious difficulty hearing No 09/13/2021 4:47 PM EDT Bessy Nunez, ОЛЕГ No [facility] 09-13-2021 Are you blind, or do you have serious difficulty seeing, even when wearing glasses No 09/13/2021 4:47 PM EDT Bessy Nunez, ОЛЕГ No [facility] 09-13-2021 Do you have serious difficulty walking or climbing stairs No 09/13/2021 4:47 PM EDT Bessy Nunez, ОЛЕГ No [facility] 09-13-2021 Do you have difficul ty dressing or bathing No 09/13/2021 4:47 PM EDT Bessy Nunez RN No [facility] 09-13-2021 Because of a physica l, mental, or emotional condition, do you have difficulty doing errands alone such as visiting a physician's office or shopping No 09/13/2021 4:47 PM EDT Bessy Nunez RN No [facility] 08-21-2021 Functional status Ambulates;Emeka r;Bathroom Privilege [facility] Work Phone: 08-21-2021 Functional status Tolerates Activity Well [facility] Work Phone: Mental Status Date Assessment Result Facility 12-26-2024 Cognitive function Voice/Name [facility] Work Phone: 12-17-2024 Cognitive function [facility]/Name [facility] Work Phone: 12-16-2024 Cognitive function [facility]/Name [facility] Work Phone: 09-02-2024 Cognitive function [facility]/Name [facility] Work Phone: 08-25-2024 Cognitive function Level Of Cons ciousness Awake;Alert;Appropriate;Fol lows Commands [facility] Work Phone: 08-02-2023 Cognitive function Voice/Name [facility] Work Phone: 07-26-2023 Cognitive function Person;Place;Time [facility] Work Phone: 07-25-2023 Cognitive function [facility]/Name [facility] Work Phone: 04-04-2023 Cognitive function [facility]/Name [facility] Work Phone: 02-17-2023 Cognitive function Level Of Cons ciousness Awake;Alert;Appropriate;Fol lows Commands [facility] Work Phone: 12-31-2022 Cognitive function Level Of Cons ciousness Awake;Alert;Appropriate;Fol lows Commands [facility] Work Phone: 10-22-2022 Mental Status Orientation Oriented x 4 [facility] 10-22-2022 Mental Status [facility] 03-07-2022 Cognitive function Level Of Cons ciousness Awake;Alert;Appropriate [facility] Work Phone: 03-02-2022 Cognitive function Level Of Cons ciousness Awake;Alert;Appropriate [facility] Work Phone: 01-28-2022 Cognitive function Level Of Cons ciousness Awake;Alert;Appropriate;Fol lows Commands [facility] Work Phone: 11-30-2021 Cognitive function Voice/Name [facility] Work Phone: 10-08-2021 Cognitive function Level Of Cons ciousness Awake;Alert;Appropriate;Fol lows Commands [facility] Work Phone: 09-29-2021 Mental Status [facility] 09-13-2021 Because of a physica l, mental, or emotional condition, do you have serious difficulty concentrating, remembering, or making decisions No 09/13/2021 4:47 PM EDT Bessy Nunez RN No [facility] 08-21-2021 Cognitive function Voice/Name [facility] Work Phone: 06-12-2021 Cognitive function Level Of Cons ciousness Awake;Alert;Appropriate;Fol lows Commands [facility] Work Phone: Clinical Notes 10-08-2019 to 01-03-2025 Note Date & Type Note Facility 01-03-2025 Discharge summary Note Date/Time January 03, 2025 8:01[facility] Medical Records Department [address] [place] [address] Emergency Department Summary 01/03/25 MR#: [id number] Acct: [id number] Name: PEDRO PABLO SIERRA Rep #:[id number] : 1950 74 From: Arnulfo Zhao DO PCP: Dr. Daija Morton MD Status:REG E R Location: ED ADDENDUM by Dr. Jaden Jauregui MD on 01/03/25 at 0801 Procedure note: Gastrostomy replacement -- consent was presumed, given the patient was sent here for tube replacement, blood consent not able to be obtained verbally or written from the patient because of his chronic mental status and inability to talk or follow commands. I prepped the epigastric gastrostomy site with isopropanol, and inserted a replacement 20 Swedish gastrostomy tube with a 20 cc balloon and 2 separate feeding/medication ports. The patient had a little bit of discomfort with this transiently and minimal bleeding. I aspirated 60 cc of air from each of the ports, and flushed with Gastrografin without resistance during confirmatory 1 view KUB at the bedside. On my interpretation it shows good stomach placement. Confirmed by radiology. Tolerated well without complication. This patient was checked out to me and I placed the new gastrostomy as above, after Dr. Zhao discussed with Dr. Henderson. The KUB shows good placement. Also on my interpretation 1 view of the pelvis shows no obvious radiographic hip fracture dislocation or other pelvic fracture. There are some limitation at theischial tuberosity and inferior pubic ramus on the right, however this is nonoperative fracture and the patient is not ambulatory anyway and already in a senior care. I reviewed the CT head and cervical spine images as well as the reports which I agree with, they are negative for acute injury. Patient will bedischarged back to nursing facility. 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 Daija Morton MD ~* Signed HPI History of Present Illness Chief Complaint: Fall Informant: EMS and SNF Narrative Narrative: Patient is a 74-year-old male with past medical history of hypertension COPD andrecent CVA currently on Eliquis. He has aphasia and permanent weakness secondary to the recent stroke. 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 [facility] states that this morning he fell out of bed and dislodged his PEG tube. Nursinghome states he is at his baseline mental status and they do not see any obvious signs of trauma but as he fell is on a blood thinner and dislodged his PEG tube was sent into the hospital for evaluation. The patient cannot offer any further history based on his aphasia/mute status [facility] Medical History Acute CVA (cerebrovascular accident) Aphasia Hypertension Weakness Debility Failure to thrive Compression fx, [...] Medications ?Medication ?Instructions ?Recorded ?Last Taken ?Type atorvastatin 40 mg tablet 40 mg PO QHS Cholesterol 12/0212/12/24 History alendronate 70 mg tablet 70 mg PO QWEEK OSTEOPROSIS # 1 TAB 11/30/21 12/09/24 Rx acetaminophen 325 mg tablet 650 mg (2 x 325 mg) feedin g tube 12/24/24 Unknown Rx Q6H PRN PRN Pain 1-10 Or Fever>100.7 #0 tabs albuterol sulfate 2.5 mg/3 mL 2.5 mg (3 mL) inhalation Q4H PRN 12/24/24 Unknown Rx (0.083 %) solution for nebulization DYSPNEA/WHEEZING/S OB #0 mL amlodipine 10 mg tablet 10 mg G-tube DAILY.RT #0 tab s 12/24/24 Unknown Rx carbamazepine 100 mg/5 mL oral 200 mg (10 mL) G-tube 4 X/DAY #0 mL 12/24/24 Unknown Rx suspension cholecalciferol (vitamin D3) 50 50 mcg feeding tube DA BRANDON 12/24/24 12/13/24 Rx mcg (2,000 unit) tablet SUPPLEMENT 30 days #30 tabs clonidine 0.2 mg/24 hr weekly 0.2 mg transdermal Q7D # 0 ea 12/24/24 Unknown Rx transdermal patch ergocalciferol (vitamin D2) 1,250 1,250 mcg feeding tu be Q7D 12/24/24 12/13/24 08:58 Rx mcg (50,000 unit) capsule (Vitamin SUPPLEMENT #0 caps D2) finasteride 5 mg tablet 5 mg feeding tube DAILY pros jasso 12/24/24 12/13/24 08:58 Rx 30 days #30 tabs gabapentin 100 mg capsule 100 mg feeding tube DAILY PA IN 30 12/24/24 12/13/24 08:58 Rx days #30 caps ipratropium 0.5 mg-albuterol 3 mg 3 ml inhalation .q6h wa #0 mL 12/24/24 Unknown Rx (2.5 mg base)/3 mL nebulization soln lactose-reduced food with fiber 55 ml feeding tube .18 hours #5,688 12/24/24 Unknown Rx 0.06 gram-1.5 kcal/mL oral liquid mL (Jevity 1.5 Alex) losartan 100 mg tablet 100 mg feeding tube DAILY Bl ood 12/24/24 12/13/24 08:58 Rx pressure 30 days #30 tabs melatonin 3 mg tablet 3 mg G-tube QHS PRN PRN Inso mnia 12/24/24 Unknown Rx #0 tabs mirtazapine 15 mg tablet 15 mg feeding tube QHS anti 12/24/24 12/12/24 20:59 Rx depressant 30 days #30 tabs prednisone 20 mg tablet 40 mg (2 x 20 mg) G-tube ZELDA AKFAST 12/24/24 Unknown Rx 5 days #10 tabs sertraline 100 mg tablet 100 mg feeding tube DAILY Unknown Rx DEPRESSION 30 days #30 tabs thiamine HCl (vitamin B1) 100 mg 100 mg G-tube BREAKFA ST #0 tabs 12/24/24 Unknown Rx tablet apixaban 5 mg tablet (Eliquis) 5 mg PO BID 01/03/25 Un known History atorvastatin 40 mg tablet (Lipitor) 40 mg PO DAILY Unknown History hydralazine 25 mg tablet 50 mg G-tube 3XD 01/03/25 Un known History metoprolol tartrate 25 mg tablet 50 mg feeding tube BI D Blood 01/03/25 Unknown History pressure pantoprazole 40 mg granules 40 mg PO DAILY 01/03/25 Un known History delayed-release for susp in packet (Protonix) Allergy/AdvReac Type Severity Reaction Status Date / Time No Known Allergies Allergy Verified 01/03/25 06:32 Family History Mother Heart disease CVA (cerebral [...] servings: 3 ROS ROS ED ROS Narrative Unable to obtain review of systems secondary to history of CVA and aphasia Review of Systems ROS Unobtainable: due to mental status EXAM Physical Exam Const Vital Signs: 01/03/25 06:27 01/03/25 06:30 Temperature 97.6 F L Temperature Source Oral Pulse Rate 54 L Respiratory Rate 16 Respiratory Effort Normal Blood Pressure 150/69 H Blood Pressure Mean 96 Pulse Ox 95 Oxygen Delivery Method Room Air Room Air Positive well nourished and well developed General Appearance ED: well developed HEENT HEENT Narrative: Normocephalic atraumatic No signs of depressed or basilar skull fracture Eyes PERRL and EOMs intact bilaterally General Eye ED: Negative for scleral icterus Neck supple Neck Narrative: No bony deformity or step-off of the cervical spine Chest Wall palpation of chest normal Chest Narrative: No bony deformity or crepitance Resp normal respiratory effort Resp Narrative: Breath sounds are diminished throughout with faint expiratory wheeze in the bilateral bases consistent with history of COPD but no signs of respiratory distress Cardio regular rhythm Rate: bradycardia and other Other Details: Bradycardic rate with regular rhythm GI non-distended and no masses GI Narrative: Abdomen is soft and nondistended with normal active bowel sounds There is a hole in the upper mid abdomen consistent with recent PEG tube insertion site. 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 No new or focal deficit at this time Sensorium / Orientation: alert Skin Skin Narrative: No abrasions or ecchymosis noted secondary to the fall Abdominal opening with bleeding consistent with recent PEG tube insertion site and traumatic removal. MDM MDM MDM Narrative Medical decision making narrative: Patient arrived to the ER hypertensive but has a past medical history of this and otherwise stable vitals. He is at his baseline mental status per senior care. Nursing reported he fell out of bed and dislodged his PEG tube. Chart review reveals he is on Eliquis and is a DNR Comfort Care arrest. With the blood thinner on board in the fall there is concern for a traumatic subarachnoidor subdural hemorrhage so therefore a CT was obtained. There is also concern for potential cervical compression fracture or spondylolisthesis so the CT was continued through the cervical spine. There is no obvious signs of pubic rami or femoral neck fracture but as the patient is mute and fell a x-ray will be obtained to rule this out as well. Imaging studies revealed no signs of acute bleed compression fracture or pelvic fracture. The nursing was contacted and they state that the patient's PEG tube is a 20 Swedish. Therefore we will obtain a similar size in the ER and attempt to replace the PEG tube at this time. The replacement of the PEG tube and imaging studies are still pending and therefore patient be signed out to Dr. Jauregui. I do feel that if all images arenegative patient will be safe to return to the senior care once the PEG tube has been replaced. History & Record Review Discussion w/independent historian: EMS personnel Additional record(s) reviewed:: Prior inpatient record Discharge Plan Triage Chief Complaint: Fall ED Provider: Arnulfo Zhao Dx/Rx/DC Orders Clinical Impression: Accidental fall, PEG tube malfunction, Current use of tank terminal gauger anticoagulation, CVA (cerebral vascular accident), COPD (chronic obstructive pulmonary disease), Hypertension Instructions: Anticoagulants, ED Head Injury (Adult) Prescriptions: No Action atorvastatin 40 MG tablet 40 mg PO QHS Patient Comments: CHOLESTEROL alendronate 70 mg tablet 70 mg PO QWEEK Qty: 1 0RF acetaminophen 325 mg Tablet 650 mg feeding [...] 200 mg G-tube 4X/DAY Qty: 0 0RF melatonin 3 mg Tablet [...] 165 ml free water every 4 hours. sertraline 100 mg tablet 100 mg feeding [...] Days Qty: 30 0RF Patient Comments: prostate cholecalciferol (vitamin D3) 50 mcg (2,000 unit) tablet 50 mcg feeding tube DAILY 30 Days Qty: 30 0RF atorvastatin [Lipitor] 40 mg tablet 40 mg PO DAILY Eliquis 5 mg tablet 5 mg PO BID pantoprazole [Protonix] [address] for susp in packet 40 mg PO DAILY hydralazine 25 mg Tablet 50 mg G-tube 3XD metoprolol tartrate 25 mg tablet 50 mg feeding tube BID Primary Care Provider: Daija Morton Referrals: Daija Morton MD [Primary Care Provider] - Print Language: Luxembourger What to do if you have Problems For any increased pain, shortness of breath, bleeding, nausea or vomiting, chestpain, or any unexpected problems, contact your Primary Care Provider. Call [facility] ([phone]) or report to the closest Emergency Room. Call 911 if necessary. 01/03/2558 <Electronically signed by Arnulfo Zhao DO> Cosigner Signature (if applicable): CC: Dr. Daija Morton MD ~ Signed [facility] Work Phone: 1(442) 385-116207-18-2025 Radiology Diagnostic study [facility]07-18-2025 Radiology Diagnostic study [facility]07-18-2025 Radiology Diagnostic study [facility] 01-03-2025 Radiology Diagnostic study [facility]07-10-2025 Discharge summary Author Shilpa Contreras [facility] Note Date/Time December 26, 2024 3:43 pm [facility] Medical Records Department [address] [place] [address] Discharge Summary 12/26/24 1533 MR#: [id number] Acct: [id number] Name: PEDRO PABLO SIERRA Rep #:[id number] : 1950 74 From: Shilpa Contreras MD PCP: Dr. Daija Morton MD Status:ADM I N Location: [place] [address] Providers Date of Admission: 12/18/24 Date of Discharge: 12/26/24 Primary Care Physician: Dr. 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 and living will but had noted he [...] mg) feeding tube Q6H PRN PRN Pain 1- 10 Or Fever>100.7 #0 tabs 12/24/24 albuterol sulfate [...] Acute COPD Exacerbation who re-presentED to the [facility] ED on 12/17/24 w/ severe dysarthria and [...] s/p PEG placement with following transition from WI ASA->eliquis, d/c IV keppra and resume liquid [...] 84.7 H, Lymph % (Auto) 6.5 L, [place] % (Auto) 7.8, Eos % (Auto) 0.2, [...] continued nutrition consultation and evaluation at the residential facility for ongoing assessments and alteration to [...] Privileges] - (Follow-up with Neurology, may see MEMS DEVICE SCIENTIST within 2-4 weeks of discharge.) Disposition Disposition (needs filled in before D/C Order can be placed): [facility] Facility Charges/Coding Visit Charges Inpatient E&M: 37625 Disch Hosp >30min 12/26/24 1543 <Electronically signed by Shilpa Contreras MD> Cosigner Signature (if applicable): CC: Dr. Shilpa Contreras MD; Dr. Daija Morton MD~ Signed [facility] Work Phone: 1(151) 670-291907-10-2025 [facility]07-10-2025 Telephone encounter Note* Telephone Encounter - Anjel Braga APRN.CNP - 12/26/2024 3:13 PM EDT Admitted to hospital. Will review further at follow up. Anjel Braga APRN.CNP [facility]07-10-2025 Miscellaneous Notes* Telephone Encounter - Anjel Braga APRN.CNP - 12/26/2024 3:13 PM EDT Admitted to hospital. Will review further at follow up. Anjel Braga APRN.CNP [facility] Progress note Author [facility] Note Date/Time December 26, 2024 12:3 1pm [facility] Medical Records Department [address] [place] [address] Progress Note - Hospitalist 12/26/24 0700 MR#: [id number] Acct: [id number] Name: PEDRO PABLO SIERRA Rep #:[id number] : 1950 74 From: Shilpa Contreras MD PCP: Dr. Daija Morton MD Status:ADM I N Location: [address] Reason for Visit Reason for Visit: Diagnoses Cerebral infarction, unspecified (12/18/24) Facial weakness (12/18/24) Aphasia (12/18/24) Subjective Subjective Patient with no acute events overnight per nursing report. Blood pressure has vacillated but improved with initiation of low-dose hydralazine per PEG. 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 Full Code status. Charges/Coding Visit Charges Inpatient E&M: 73690 Subs Hosp L2 NIHSS NIHSS Nursing Documentation NIHSS Nursing Documentation: NIHSS: Ischemic Stroke/TIA Start: 12/17/24 18:52 Text: For PCU Patients: NIH and Neuro Check every 4 Status: Complete hours, PRN and with change in RN caregiver. Freq: Q12 Protocol: Activity Type Activity Date Activity User E-sign Co-sign Detail Recorded Client Recorded Date Recorded By Document 12/22/24 08:15 DS [id number] 12/22/24 08:19 DS 12/22/24 08:15 NIH Stroke [...] Cosigner Signature (if applicable): CC: ~ Signed [facility] Work Phone: 1(396) 904-347207-09-2025 Progress note Author Shilpa Contreras [facility] Note Date/Time December 25, 2024 1:49p m [facility] Medical Records Department [address] [place], [place] [address] Progress Note - Hospitalist 12/25/24 0652 MR#: [id number] Acct: [id number] Name: PEDRO PABLO SIERRA Rep #:[id number] : 1950 74 From: Shilpa Contreras MD PCP: Dr. 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 Full Code status. Charges/Coding Visit Charges Inpatient E&M: 23243 Subs Hosp L2 NIHSS NIHSS Nursing Documentation NIHSS Nursing Documentation: NIHSS: Ischemic Stroke/TIA Start: 12/17/24 18:52 Text: For PCU Patients: NIH and Neuro Check every 4 Status: Complete hours, PRN and with change in RN caregiver. Freq: Q12 Protocol: Activity Type Activity Date Activity User E-sign Co-sign Detail Recorded Client Recorded Date Recorded By Document 12/22/24 08:15 DS [id number] 12/22/24 08:19 DS 12/22/24 08:15 NIH Stroke [...] Cosigner Signature (if applicable): CC: ~ Signed [facility] Work Phone: [phone]) 114-715407-08-2025 Progress note Author Paulino Friend [facility] Note Date/Time December 24, 2024 5:58p m [facility] Medical Records Department [address] [place] [address] Progress Note 12/24/24 561 MR#: [id number] Acct: [id number] Name: PEDRO PABLO SIERRA Rep #:[id number] : 1950 74 From: Paulino Henderson DO PCP: Dr. Daija Morton MD Status:ADM I N Location: [place] [address] Progress Note Patient is still tolerating PEG [...] and anticoagulation therapy. Visit Charges Inpatient E&M: 32640 Subs Hosp L2 12/24/24 8695 <Electronically signed by Paulino Henderson DO> Paulino Henderson DO Cosigner Signature (if applicable): CC: ~ Signed [facility] Work Phone: [phone]) [phone] Discharge summary Author Shilpa Contreras [facility] Note Date/Time December 24, 2024 5:11p m [facility] Medical Records Department [address] [place] [address] Transfer to [facility] Care MR#: [id number] Acct: [id number] Name: PEDRO PABLO SIERRA Rep #:[id number] : 1950 74 From: Shilpa Contreras MD PCP: Dr. Daija Morton MD Status:ADM I N Certification of patient admission REQUIRED AT TIME OF ADMISSION. I CERTIFY THAT POST-HOSPITAL ECF SERVICES ARE REQUIRED TO BE GIVEN ON AN IN-PATIENT BASIS BECAUSE OF THE ABOVE NAMED PATIENT'S NEED FOR JAIL CARE ON A CONTINUING BASIS FOR THE CONDITION(S) FOR WHICH HE/SHE WAS RECEIVINGIN-PATIENT HOSPITAL SERVICES PRIOR TO HIS/HER TRANSFER TO THE F. 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 Full Code status. Allergies/Procedures Done in Hospital Allergies No Known Allergies Allergy (Verified 04/06/24 11:12) Procedures: EKG and - (PEG tube placement.) Type of Care/Length of Stay Estimated LOS: More Than 30 Days Type of Care Needed: Skilled Rehab Potential: Fair Prognosis: Fair Additional Orders/Day of Discharge Day of Discharge: 12/24/24 Dietary and Speech Recommendations Dietitian Recommendations/Changes: 1. Recommend advanced diet as tolerated to cardiac per EQUAL OPPORTUNITY REPRESENTATIVE recommendations. 2. Will order to start at [...] continued nutrition consultation and evaluation at the residential facility for ongoing assessments and alteration to [...] Privileges] - (Follow-up with Neurology, may see MEMS DEVICE SCIENTIST within 2-4 weeks of discharge.) Disposition Disposition (needs filled in before D/C Order can be placed): [facility] 12/24/24 1711 <Electronically signed by Shilpa Contreras MD> Cosigner Signature (if applicable): CC: Daylin Schmitt; Gogo Gill MD; Chrystal Collier MD; Dr. Paul Yang MD;Dr. Roman Patel DO; Dr. Aung Peres MD; Dr. Daija Morton MD; Dr. Ryan Vargas MD; Dr. Lisha Talamantes DO; Jo Hughes MD; Luan Mcgraw MD; DO Kerri; Angelo Wiley MD; Neelam Almendarez DO ~ [facility] Work Phone: [phone]) [phone] Progress note Author [facility] Note Date/Time December 24, 2024 2:56p m [facility] Medical Records Department [address] [place] [address] Progress Note - Neurology 12/24/24 1451 MR#: [id number] Acct: [id number] Name: PEDRO PABLO SIERRA Rep #:[id number] : 1950 74 From: Maya Talamantes MD PCP: Dr. Daija Morton MD Status:ADM I N Location: [place] [address] Objective Data Objective Data Vital Signs: Vital [...] 82.4 H, Lymph % (Auto) 8.5 L, [place] % (Auto) 7.7, Eos % (Auto) 0.4, [...] Neurology Subjective PEG yesterday. Eliquis started today. 168/71. Patient can move the left arm whenhe [...] on keppra, PVD, and CDwho presented to [facility] ED on 12/17/2024 with dysarthria and [...] bc patient does not cooperate- swats the trim technician away. Neurological examination limited by decreased [...] Date Recorded By Document 12/22/24 08:15 DS [id number] 12/22/24 08:19 DS 12/22/24 08:15 NIH Stroke [...] and Inattention: 0 - No abnormality Total: 22 12/24/24 1456 <Electronically signed by Maya Talamantes MD> Cosigner Signature (if applicable): CC: ~ Signed [facility] Work Phone: [phone]) [phone] Progress note Author Shilpa Contreras [facility] Note Date/Time December 24, 2024 2:46p m [facility] Medical Records Department [address] [place] [address] Progress Note - Hospitalist 12/24/24705 MR#: [id number] Acct: [id number] Name: PEDRO PABLO SIERRA Rep #:[id number] : 1950 74 From: Shilpa Contreras MD PCP: Dr. Daija Morton MD Status:ADM I N Location: [place] [address] Reason for Visit Reason for Visit: Diagnoses [...] Intake Total 2326.25 / 2326.25 2064.00 / 2063.00 178.75 / 178.75 Output Total 2350 / [...] 82.4 H, Lymph % (Auto) 8.5 L, [place] % (Auto) 7.7, Eos % (Auto) 0.4, [...] Acute COPD Exacerbation who re-presents to the [facility] ED on 12/17/24 w/ severe dysarthria and [...] s/p PEG placement thus will transition from WI ASA->eliquis, d/c IV keppra and resume liquid carbamazepine,transition to HTN regimen per PEG, addback statin per PEG. 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 Patient and daughter have been working with healthcare team closely and patient is maintained full code at this time. Charges/Coding Visit Charges Inpatient E&M: 83977 Subs Hosp L3 NIHSS NIHSS Nursing Documentation NIHSS Nursing Documentation: NIHSS: Ischemic Stroke/TIA Start: 12/17/24 18:52 Text: For PCU Patients: NIH and Neuro Check every 4 Status: Complete hours, PRN and with change in RN caregiver. Freq: Q12 Protocol: Activity Type Activity Date Activity User E-sign Co-sign Detail Recorded Client Recorded Date Recorded By Document 12/22/24 08:15 DS [id number] 12/22/24 08:19 DS 12/22/24 08:15 NIH Stroke [...] e [Total] -Coma Scale Total 12 12/24/24 1446 <Electronically signed by Shilpa Contreras MD> Cosigner Signature (if applicable): CC: ~ Signed [facility] Work Phone: [phone] Telephone encounter Note* Telephone Encounter - Daija Morton MD - 12/24/2024 2:09 PM EDT Noted. RegardsDaija MD [facility]07-08-2025 Miscellaneous Notes* Telephone Encounter - Daija Morton MD - 12/24/2024 2:09 PM EDT Noted. Daija Tripp MD * Telephone Encounter - Kelly Zelaya RN - 12/17/2024 2:20 PM EDT Frank REDD [place] [employer] called in to give an update on [...] use. Kelly Zelaya RN documented [facility] Consult note Author Kyaw Borrego [facility] Note Date/Time December 23, 2024 3:51p [facility] Medical Records Department [address] [place] [address] Anesthesia Postop Eval II 12/23/24 1551 MR#: [id number] Acct: [id number] Name: PEDRO PABLO SIERRA Rep #:[id number] : 1950 74 From: Kyaw Borrego MD PCP: Dr. Daija Morton MD Status:ADM I N Y Race: C Location: [place] [address] 1-1 Anesthesia Postop Eval I Sum Postop Eval Completion status Anesthesia document: Postop Eval 1 completed: Yes Anesthesia Postop Eval I Summary Anesthesia Postop Eval I Summary: Anesthesia Postop Eval I: Assessment Summary Airway patent Yes 12/23/24 15:30 BLEACH LIQUOR MAKER.CSIR Spontaneous unlabored Yes 12/23/24 15:30 BLEACH LIQUOR MAKER.CSIR respirations Mental status nausea No 12/23/24 15:30 BLEACH LIQUOR MAKER.CSIR Vomiting No 12/23/24 15:30 BLEACH LIQUOR MAKER.CSIR Anesthesia Postop Eval I: Fluid Summary Crystalloid volume administer 200 12/23/24 15:30 BLEACH LIQUOR MAKER.CSIR (ml) Colloids volume administered ( ml) Blood Product volume administered (ml) Total IV fluid infused 200 12/23/24 15:30 BLEACH LIQUOR MAKER.CSIR Anesthesia Postop Eval I: Summary Notes Anesthesia Complication No 12/23/24 15:30 BLEACH LIQUOR MAKER.CSIR Anesthesia Complication Comment: Post-operative progress note Anesthesia: Postop Eval II Evaluation Mental status: Awake Pain Level: 0 nausea: No Vomiting: No 12/23/24 1551 <Electronically signed by Kyaw Borrego MD > Date _ Kyaw Vanessa Signature: Date CC: ~ Signed [facility] Work Phone: 1(772) 425-438407-07-2025 Consult note Author [facility] Note Date/Time December 23, 2024 3:32p m [facility] Medical Records Department [address] [place] [address] Anesthesia Postop Eval I 12/23/24 1530 MR#: [id number] Acct: [id number] Name: PEDRO PABLO SIERRA Rep #:[id number] : 1950 74 From: Rocío Barrios CRNA PCP: Dr. Daija Morton MD Status:ADM I N Y Race: C Location: [place] [address] 1- Anesthesia: Postop Eval I Current Vital Signs [...] Yes 12/23/24 1532 <Electronically signed by Rocío smith BLEACH LIQUOR MAKER> Date _ Rocío Barrios BLEACH LIQUOR MAKER Cosigner Signature: Date CC: ~ Signed [facility] Work Phone: [phone]) [phone] Progress note Author Shilpa Contreras [facility] Note Date/Time December 23, 2024 3:24p m [facility] Medical Records Department [address] [place] [address] Progress Note - Hospitalist 12/23/24 0719 MR#: [id number] Acct: [id number] Name: PEDRO PABLO SIERRA Rep #:[id number] : 1950 74 From: Shilpa Contreras MD PCP: Dr. Daija Morton MD Status:ADM I N Location: [place] [address] Reason for Visit Reason for Visit: Diagnoses [...] Acute COPD Exacerbation who re-presents to the [facility] ED on 12/17/24 w/ severe dysarthria and [...] Acute COPD Exacerbation who re-presents to the [facility] ED on 12/17/24 w/ severe dysarthria and [...] prophylaxis. Once patient requires PEG tube and residential facility placement is pre-CERT obtained will transition [...] DVT prophylaxis: As noted currently maintained on WI aspirin therapy, planinitiation of Eliquis therapy following PEG tube placement likely 12/25/2019 5 AM. #17. 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 Patient and daughter have been working with healthcare team closely and patient is maintained full code at this time. Charges/Coding Visit Charges Inpatient E&M: 30214 Subs Hosp L3 NIHSS NIHSS Nursing Documentation NIHSS Nursing Documentation: NIHSS: Ischemic Stroke/TIA Start: 12/17/24 18:52 Text: For PCU Patients: NIH and Neuro Check every 4 Status: Complete hours, PRN and with change in RN caregiver. Freq: Q12 Protocol: Activity Type Activity Date Activity User E-sign Co-sign Detail Recorded Client Recorded Date Recorded By Document 12/22/24 08:15 DS [id number] 12/22/24 08:19 DS 12/22/24 08:15 NIH Stroke [...] Cosigner Signature (if applicable): CC: ~ Signed [facility] Work Phone: 1([phone]) 999-964507-07-2025 Procedure [facility] 12-23-2024 Procedure [facility]07-07-2025 Progress note Author Paulino Henderson [facility] Note Date/Time December 23, 2024 2:46p m [facility] Medical Records Department [address] [place] [address] Progress Note 12/23/24 1445 MR#: [id number] Acct: [id number] Name: PEDRO PABLO SIERRA Rep #:[id number] : 1950 74 From: Paulino Henderson DO PCP: Dr. Daija Morton MD Status:ADM I N Location: [place] [address] Progress Note Patient with esophageal dysphagia. She [...] ASA of 3. Visit Charges Inpatient E&M: 38128 Subs Hosp L2 12/23/24 1446 <Electronically signed by Paulino Henderson DO> Paulino Friend DO Cosigner Signature (if applicable): CC: ~ Signed [facility] Work Phone: [phone] Consult note Author Kyaw Borrego [facility] Note Date/Time December 23, 2024 2:02p [facility] Medical Records Department [address] [place] [address] Pre-Anesthesia Evaluation 12/23/24 1400 MR#: [id number] Acct: [id number] Name: PEDRO PABLO SIERRA Rep #:[id number] : 1950 74 From: Kyaw Borrego MD PCP: Dr. Daija Morton MD Status:ADM I N Y Race: C Location: [place] [address] ASA Classification* ASA Classification ASA Classification: 3 [...] PEG placement. 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 - liability claims manager: Anesthesia History - liability claims manager Hx Hospitalization Yes 08/08/20 16:59 Any Problems [...] take am of surgery PONV PONV - liability claims manager: PONV - liability claims manager Female HX of Motion Sickness HX of N/V After Surgery Non-Smoker Duration of Surgery greater than 60 minutes Number of Risk Factors PONV Score Height & Weight Height & Weight: Anesthesia: Height & Weight Height 5 ft 8 in 12/23/24 09:50 Weight: 73 kg 12/23/24 09:50 Body Mass Index (BMI) 24.5 12/23/24 09:00 Respiratory Assessment Respiratory Assessment - liability claims manager: Respiratory Tract Infection Hx - liability claims manager Hx Respiratory Tract Infection No 12/23/24 09:15 STOP Sleep Apnea STOP Sleep Apnea - liability claims manager: STOP Sleep Apnea - liability claims manager Hx Hypertension Yes 12/23/24 09:06 Hx Sleep [...] Tobacco Use History Tobacco Use History - liability claims manager: Tobacco Use History - liability claims manager Tobacco Use Cigarettes 12/23/24 09:06 Smoking Status Current every day smoker 12/23/24 09:06 Hx Tobacco Use Yes 12/17/24 20:07 Years Smoking Packs Smoked per Day Smoking Cessation Date was within the last 15 years Hx Smoking Cessation Date Hx Smoking Cessation No 12/23/24 09:06 Counseling Hematologic Medial History 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 Specify any problems Hx of Preganancy in last 3 Months Nurse Filling Out Transfusion & Questions: Date: Time: Patient unable to answer at Yes 12/17/24 20:07 this time (ie. confused, unrespo /Reproduction History /Reproductive History - liability claims manager: /Reproductive Hx- liability claims manager Hx Now Gestational Age (in weeks): EDC: [...] mls @ 15 mls/hr 12/17/24 19:51 IV .[id number] PRN Saline Flush Sodium Chloride 250 mls @ 15 mls/hr 12/17/24 19:51 IV .[id number] PRN Additional IVPB Infusion Levetiracetam 1,000 mg in 100 mls @ 400 mls/hr 12/17/24 22:00 12/23/24 09:45 IV Infused Q12 LEON Infusion Pantoprazole Sodium 40 mg/ 100 mls @ 300 mls/hr 12/19/24 10:00 12/23/24 09:26 Sodium Chloride IV Infused Q24 LEON Infusion Lactated Ringer's 1,000 mls @ 75 mls/hr 12/18/24 15:30 12/23/24 13:10 IV 0 mls/hr .[id number] LEON Infusion Thiamine HCl 250 mg/ Sodium [...] 40 Mg Tablet PO Not Given DAILY [facility] Senna/Docusate Sodium 1 tablet 12/17/24 18:52 Senna/Docusate Sodium 1 Tablet PO BID PRN PRN Constipation Sertraline HCl 100 mg 12/18/24 10:00 12/18/24 09:52 Sertraline 100 Mg Tablet PO Not Given DAILY [facility] Sodium Chloride 10 - 40 ml 12/17/24 19:51 12/23/24 13:09 0.9% Saline Lock 10 Ml Syringe IV 10 ml UD PRN Administration SALINE FLUSH Tamsulosin HCl 0.4 mg 12/18/24 22:00 Tamsulosin Hcl 0.4 Mg Capsule PO QHS [facility] Medical History Weakness Debility Failure to thrive [...] MD Cosigner Signature: Date CC: ~ Signed [facility] Work Phone: [phone]) 576-528707-07-2025 Hospital Discharge instructionsAdditional Instructions ADDITIONAL DISCHARGE INSTRUCTIONS/INFORMATION: [...] continued nutrition consultation and evaluation at the residential facility for ongoing assessments and alteration to [...] which appears recent baseline. [facility]: [facility]: [phone]) 421-811407-06-2025 Progress note Author Lisha Talamantes [facility] Note Date/Time December 22, 2024 3:35p m [facility] Medical Records Department [address] [place] [address] Progress Note - Hospitalist 12/22/24 1534 MR#: [id number] Acct: [id number] Name: PEDRO PABLO SIERRA R Rep #:[id number] : 1950 74 From: Lisha Talamantes DO PCP: Dr. Daija Morton MD Status:ADM I N Location: [place] [address] Hospitalist Note Extensive conversation with POA's at the bedside which included his ex- [...] his neurological status and they voiced understanding. 12/22/241534 <Electronically signed by Lisha Talamantes DO> Cosigner Signature (if applicable): CC: ~ Signed [facility] Work Phone: [phone]) 248-458807-06-2025 Progress note Author Lisha Talamantes [facility] Note Date/Time December 22, 2024 1:13p [facility] Medical Records Department [address] [place] [address] Progress Note - Hospitalist 12/22/24 0733 MR#: [id number] Acct: [id number] Name: PEDRO PABLO SIERRA R Rep #:[id number] : 1950 74 From: Lisha Talamantes DO PCP: Dr. Daija Morton MD Status:ADM I N Location: [place] [address] Reason for Visit Reason for Visit: facial [...] Full code Charges/Coding Visit Charges Inpatient E&M: 18472 Subs Hosp L2 NIHSS NIHSS Nursing Documentation NIHSS Nursing Documentation: NIHSS: Ischemic Stroke/TIA Start: 12/17/24 18:52 Text: For PCU Patients: NIH and Neuro Check every 4 Status: Active hours, PRN and with change in RN caregiver. Freq: Q12 Protocol: Activity Type Activity Date Activity User E-sign Co-sign Detail Recorded Client Recorded Date Recorded By Document 12/21/24 21:20 [id number] 12/21/24 21:19 12/21/24 21:20 NIH Stroke Scale [...] Cosigner Signature (if applicable): CC: ~ Signed [facility] Work Phone: [phone]) 114-898707-06-2025 Progress note Author Maya [facility] Note Date/Time December 22, 2024 9:18a m [facility] Medical Records Department [address] [place] [address] Progress Note - Neurology 12/22/24913 MR#: [id number] Acct: [id number] Name: PEDRO PABLO SIERRA Rep #:[id number] : 1950 74 From: Maya Talamantes MD PCP: Dr. Daija Morton MD Status:ADM I N Location: [place] [address] Objective Data Objective Data Vital Signs: Vital [...] on keppra, PVD, and CDwho presented to [facility] ED on 12/17/2024 with dysarthria and [...] Continue daily anti-platelet med (Asa) for now. 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 Daija Morton MD Status:ADM I N Location: [place] [address] Objective Data Objective Data Vital Signs: Vital [...] 75.1 H, Lymph % (Auto) 14.2 L, [place] % (Auto) 8.5, Eos % (Auto) 1.2, [...] on keppra, PVD, and CDwho presented to [facility] ED on 12/17/2024 with dysarthria and [...] Continue daily anti-platelet med (Asa) for now. longterm will need AC for Afib stroke prevention [...] Date Recorded By Document 12/21/24 08:35 DS [id number] 12/21/24 11:09 DS 12/21/24 08:35 NIH Stroke [...] Cosigner Signature (if applicable): CC: ~ Signed [facility] Work Phone: 1([phone]) 820-667907-05-2025 Progress note Author Lisha Talamantes [facility] Note Date/Time December 21, 2024 1:11p m [facility] Medical Records Department [address] [facility] [place] [address] Progress Note - Hospitalist 12/21/24 1243 MR#: [id number] Acct: [id number] Name: PEDRO PABLO SIERRA Rep #:[id number] : 1950 74 From: Lisha Talamantes DO PCP: Dr. Daija Morton MD Status:ADM I N Location: [place] [address] Reason for Visit Reason for Visit: Aphasia/Facial [...] 75.1 H, Lymph % (Auto) 14.2 L, [place] % (Auto) 8.5, Eos % (Auto) 1.2, [...] Full code Charges/Coding Visit Charges Inpatient E&M: 58125 Subs Hosp L2 NIHSS NIHSS Nursing Documentation NIHSS Nursing Documentation: NIHSS: Ischemic Stroke/TIA Start: 12/17/24 18:52 Text: For PCU Patients: NIH and Neuro Check every 4 Status: Active hours, PRN and with change in RN caregiver. Freq: Q12 Protocol: Activity Type Activity Date Activity User E-sign Co-sign Detail Recorded Client Recorded Date Recorded By Document 12/21/24 08:35 DS [id number] 12/21/24 11:09 DS 12/21/24 08:35 NIH Stroke [...] Cosigner Signature (if applicable): CC: ~ Signed [facility] Work Phone: 1(878) 672-264907-04-2025 Progress note Author Lisha Talamantes [facility] Note Date/Time December 20, 2024 12:05 pm [facility] Medical Records Department [address] [place] [address] Progress Note - Hospitalist 12/20/24 0717 MR#: [id number] Acct: [id number] Name: PEDRO PABLO SIERRA Rep #:[id number] : 1950 74 From: Lisha Talamantes DO PCP: Dr. Daija Morton MD Status:ADM I N Location: [place] [address] Reason for Visit Reason for Visit: Difficulty [...] 79.1 H, Lymph % (Auto) 9.9 L, [place] % (Auto) 8.5, Eos % (Auto) 1.2, [...] T1 signal, consistent with subacute infarct, image 17/. There are punctate foci of restricted diffusion in the left precentral subcortical region which show associated increased T2, decreased T1 signal, consistent with subacute infarct, image 21/. There is extensive abnormal increased T2 and FLAIR signal throughout the deep white matter, confluence in the periventricular regions, consistent with chronic ischemic change. There is a 3.1 x 1.5 cm arachnoid cyst at the medial left temporal tip. There is mucosal thickening in the right maxillary sinus. Reading Location: [facility] Physical Exam Const alert, no apparent distress [...] Full code Charges/Coding Visit Charges Inpatient E&M: 01769 Subs Hosp L2 NIHSS NIHSS Nursing Documentation NIHSS Nursing Documentation: NIHSS: Ischemic Stroke/TIA Start: 12/17/24 18:52 Text: For PCU Patients: NIH and Neuro Check every 4 Status: Active hours, PRN and with change in RN caregiver. Freq: [id number] Protocol: Activity Type Activity Date Activity User E-sign Co-sign Detail Recorded Client Recorded Date Recorded By Document 12/20/24 05:53 MB [id number] 12/20/24 05:55 MB 12/20/24 05:53 NIH Stroke [...] Cosigner Signature (if applicable): CC: ~ Signed [facility] Work Phone: 1(347) 592-597007-04-2025 Progress note Author Mohamed [facility] Note Date/Time December 20, 2024 11:53 am [facility] Medical Records Department [address] [place] [address] Progress Note - Neurology 12/20/24 1107 MR#: [id number] Acct: [id number] Name: PEDRO PABLO SIERRA Rep #:[id number] : 1950 74 From: René Carson PCP: Dr. Daija Morton MD Status:ADM I N Location: [place] [address] Objective Data Objective Data Vital Signs: Vital [...] 79.1 H, Lymph % (Auto) 9.9 L, [place] % (Auto) 8.5, Eos % (Auto) 1.2, [...] awaiting PEG tube on Monday, failed with EQUAL OPPORTUNITY REPRESENTATIVE. No NGT. EEG Results Procedure Details EEG [...] is controlled. Would prefer a DOAC for usp AC. I would recommend re-evaluation of candiacy for AC despite the fall risk as the patient has an high risk of future embolic events ([id number] 10, HASBLED 4). His risk of a [...] goal <7, BP goal is 120/80 -recommend PT/OT/EQUAL OPPORTUNITY REPRESENTATIVE consult. Will likely need PEG. consider NGT for alterative access in the meantime #seizure -recommend routine EEG as his aphasia does seen to be out of proportion to his infarct burden. would want to ensure no NCSE -it appears he was switched from CBZ to keppra during this admission. Ok to continue keppra [facility] if tolerating without adverse effects or recurrent seizures. ] NIHSS NIHSS Nursing Documentation NIHSS Nursing Documentation: NIHSS: Ischemic Stroke/TIA Start: 12/17/24 18:52 Text: For PCU Patients: NIH and Neuro Check every 4 Status: Active hours, PRN and with change in RN caregiver. Freq: Q12 Protocol: Activity Type Activity Date Activity User E-sign Co-sign Detail Recorded Client Recorded Date Recorded By Document 12/20/24 09:41 [id number] 12/20/24 09:46 12/20/24 09:41 NIH Stroke Scale [...] Cosigner Signature (if applicable): cc: ~* Signed [facility] Work Phone: 1(801) 390-689107-03-2025 Progress note Author Lisha Talamantes [facility] Note Date/Time December 19, 2024 4:09p m [facility] Medical Records Department [address] [place] [address] Progress Note - Hospitalist 12/19/24 0810 MR#: [id number] Acct: [id number] Name: PEDRO PABLO SIERRA Rep #:[id number] : 1950 74 From: Lisha Talamantes DO PCP: Dr. Daija Morton MD Status:ADM I N Location: [place] [address] Reason for Visit Reason for Visit: Difficulty [...] 81.3 H, Lymph % (Auto) 9.0 L, [place] % (Auto) 6.6, Eos % (Auto) 1.9, [...] in the right maxillary sinus. [facility] Physical Exam Const alert, no apparent [...] Full code Charges/Coding Visit Charges Inpatient E&M: 57933 Subs Hosp L2 NIHSS NIHSS Nursing Documentation NIHSS Nursing Documentation: NIHSS: Ischemic Stroke/TIA Start: 12/17/24 18:52 Text: For PCU Patients: NIH and Neuro Check every 4 Status: Active hours, PRN and with change in RN caregiver. Freq: [id number] Protocol: Activity Type Activity Date Activity User E-sign Co-sign Detail Recorded Client Recorded Date Recorded By Document 12/19/24 07:15 [id number] 12/19/24 07:43 12/19/24 07:15 NIH Stroke Scale [...] Cosigner Signature (if applicable): CC: ~ Signed [facility] Work Phone: 1(363) 968-761607-02-2025 Progress note Author Lisha Talamantes [facility] Note Date/Time December 18, 2024 2:59p m [facility] Medical Records Department [address] [place] [address] Progress Note - Hospitalist 12/18/24 1445 MR#: [id number] Acct: [id number] Name: PEDRO PABLO SIERRA Shannan Rep #:[id number] : 1950 74 From: Lisha Talamantes DO PCP: Dr. Daija Morton MD Status:ADM I NO Location: [place] [address] Reason for Visit Reason for Visit: Diagnoses [...] (Auto) 77.5 H, Lymph % (Auto) 12.1 L,[place] % (Auto) 7.8, Eos % (Auto) 1.1, [...] as noted. Findings were called to the [facility] emergency department on 12/17/2024 at 4:35 p.m. Reading Location: [id number] Head/Neck CTA 12/17/24 15:53 IMPRESSION: Right ICA stenosis of 75%. Left ICA stenosis of 50%. Additional atherosclerosis as above. Biapical pulmonary scarring and emphysema. Reading Location: [id number] Chest X-Ray 12/17/24 15:54 IMPRESSION: Hyperaerated lungs which can suggest COPD. Stable scarring. Reading Location: [id number] Echocardiogram 12/18/24 07:27 Interpretation Summary Technically difficult study With limited views. Overall LV systolic function within normal. The estimated ejection fraction is 55???60 %. Previous study in 2023 as well showed technically difficult study with overall normal LV systolic function. Ordering Physician: Lisha Talamantes Referring Physician: Daija Morton Performed By: Susie Sands RDCS, RVT Physical Exam Const alert, no [...] Full code Charges/Coding Visit Charges Inpatient E&M: 97262 Subs Hosp L2 NIHSS NIHSS Nursing Documentation NIHSS Nursing Documentation: NIHSS: Ischemic Stroke/TIA Start: 12/17/24 18:52 Text: For PCU Patients: NIH and Neuro Check every 4 Status: Active hours, PRN and with change in RN caregiver. Freq: [id number] Protocol: Activity Type Activity Date Activity User E-sign Co-sign Detail Recorded Client Recorded Date Recorded By Document 12/18/24 13:40 [id number] 12/18/24 13:43 12/18/24 13:40 NIH Stroke Scale [...] e [Total] -Coma Scale Total 12 12/18/24 4497 <Electronically signed by Lisha Talamantes DO> Cosigner Signature (if applicable): CC: ~ Signed [facility] Work Phone: 1(691) 275-103107-02-2025 Consult note Author Amy Chun [facility] Note Date/Time December 18, 2024 1:13p m [facility] Medical Records Department [address] [place] [address] Consultation - Neurology 12/18/24 1249 MR#: [id number] Acct: [id number] Name: PEDRO PABLO SIERRA Rep #:[id number] : 1950 74 From: Amy Chun MD PCP: Dr. Daija Morton MD Status:ADM I NO Location: [place] [address]- 1 Assessment and Plan: Stroke Assessment/Plan PEDRO PABLO [...] HTN: Permissive HTN acutely and gradual normalization [facility]iary Speech and swallow evaluation PT, OT evaluation Thanks for consult. Please call with questions HPI Consult Data Date of Consult: 12/18/24 HPI Narrative HPI Narrative: PEDRO PABLO SIERRA, is a 74 M who presents who presented to [facility] on 12/17/2024 with dysarthria and [...] stroke. Unfortunately, he was outside the window [facility]. He has history of A-fib and was [...] stenosis of 50%, no other acute findings. [facility] Medical History Weakness Debility Failure to [...] mg capsule 100 mg PO DAILY PAIN 2 5 12/13/24 08:58 History nicotine 21 mg/24 [...] (Auto) 77.5 H, Lymph % (Auto) 12.1 L,[place] % (Auto) 7.8, Eos % (Auto) 1.1, [...] as noted. Findings were called to the [facility] emergency department on 12/17/2024 at 4:35 p.m. Reading Location: [facility] Head/Neck CTA 12/17/24 15:53 IMPRESSION: Right ICA stenosis of 75%. Left ICA stenosis of 50%. Additional atherosclerosis as above. Biapical pulmonary scarring and emphysema. Reading Location: [id number] Chest X-Ray 12/17/24 15:54 IMPRESSION: Hyperaerated lungs which can suggest COPD. Stable scarring. Reading Location: [id number] Active Medications Active Medications Active Medications: Current [...] Tablet (1,000 Units) PO Not Given DAILY [facility] Clopidogrel Bisulfate 75 mg 12/18/24 10:00 12/18/24 09:52 Clopidogrel Bisulfate 75 Mg Tablet PO Not Given DAILY [facility] Finasteride 5 mg 12/18/24 10:00 12/18/24 09:52 Finasteride 5 Mg Tablet PO Not Given DAILY [facility] Gabapentin 100 mg 12/18/24 10:00 12/18/24 09:52 Gabapentin 100 Mg Capsule PO Not Given DAILY [facility] Hydralazine HCl 5 mg 12/17/24 18:52 Hydralazine 20 Mg/Ml Vial IV 12/18/24 18:52 Q30M PRN maintain BP parameters with HR <60 Sodium Chloride 250 mls @ 15 mls/hr 12/17/24 19:51 IV .[id number] PRN Saline Flush Sodium Chloride 250 mls @ 15 mls/hr 12/17/24 19:51 IV .C11Y60M PRN Additional IVPB Infusion Levetiracetam 1,000 mg [...] 100 Mg Tablet PO Not Given DAILY [facility] Sodium Chloride 10 - 40 ml 12/17/24 19:51 12/18/24 10:33 0.9% Saline Lock 10 Ml Syringe IV 10 ml UD PRN Administration SALINE FLUSH Tamsulosin HCl 0.4 mg 12/18/24 22:00 Tamsulosin Hcl 0.4 Mg Capsule PO QHS [facility] NIHSS NIHSS Nursing Documentation NIHSS Nursing Documentation: NIHSS: Ischemic Stroke/TIA Start: 12/17/24 18:52 Text: For PCU Patients: NIH and Neuro Check every 4 Status: Active hours, PRN and with change in RN caregiver. Freq: [id number] Protocol: Activity Type Activity Date Activity User E-sign Co-sign Detail Recorded Client Recorded Date Recorded By Document 12/18/24 10:30 [id number] 12/18/24 10:48 12/18/24 10:30 NIH Stroke Scale [...] applicable): CC: Dr. Daija Morton MD~ Signed [facility] Work Phone: 1([phone]) 947-964707-01-2025 History and physical note Author Roman Patel [facility] Note Date/Time December 17, 2024 7:17p m [facility] Medical Records Department [address] [place] [address] H&P Exam - Hospitalist 12/17/24 7858 MR#: [id number] Acct: [id number] Name: PEDRO PABLO SIERRA Rep #:[id number] : 1950 74 From: Roman randall DO PCP: Dr. Daija Morton MD Status:ADM I NO Location: [facility] [id number]- 1 HPI - General General Date of Admission: 12/17/24 Date of Service: 12/17/24 Chief Complaint: Dysarthria and right-sided facial droop HPI Narrative PEDRO PABLO SIERRA, is a 74 M who presented to [facility] ED on 12/17/2024 with dysarthria and [...] time. Will be admitted for further management. [facility] Medical History Weakness Debility Failure to [...] History household members: family housing: other details: [facility] 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 Smoking Status: [...] (Auto) 77.5 H, Lymph % (Auto) 12.1 L,[place] % (Auto) 7.8, Eos % (Auto) 1.1, Baso % (Auto) 1.1 H, Absolute Neuts (auto) 6.6, Absolute Lymphs (auto) 1.03, Nucleated RBC % 0 Imaging Radiology Impression Brain CT 12/17/24 15:53 IMPRESSION: 1. Cerebral atrophy. 2. No evidence of acute intracranial pathology. 3. Other findings as noted. Findings were called to the [facility] emergency department on 12/17/2024 at 4:35 p.m. Reading Location: [id number] Head/Neck CTA 12/17/24 15:53 IMPRESSION: Right ICA stenosis of 75%. Left ICA stenosis of 50%. Additional atherosclerosis as above. Biapical pulmonary scarring and emphysema. Reading Location: [id number] Chest X-Ray 12/17/24 15:54 IMPRESSION: Hyperaerated lungs which can suggest COPD. Stable scarring. Reading Location: [id number] Assessment & Plan Assessment/Plan (1) Acute CVA (cerebrovascular accident): PLAN: Plan Patient is a 74-year-old male who presented to [facility] ED on 12/17/2024 with strokelike symptoms. [...] 75 minutes. Charges/Coding Visit Charges Inpatient E&M: 06719 Init Hosp L3 12/17/241916 <Electronically signed by Roman Patel DO> Cosigner Signature (if applicable): CC: Dr. Roman Patle DO; Dr. Daija Morton MD~ Signed [facility] Work Phone: 1(640) 594-212807-01-[address] Seth [facility] Note Date/Time December 17, 2024 5:41p m [facility] Medical Records Department [address] [place] [address] Emergency Department Summary 12/17/24 MR#: [id number] Acct: [id number] Name: PEDRO PABLO SIERRA Rep #:[id number] : 1950 74 From: Seth Pritchard DO [...] was around noon according to at home. [facility] Medical History Weakness Debility Failure to thrive [...] 77.5 H Lymph % (Auto) 12.1 L [place] % (Auto) 7.8 Eos % (Auto) 1.1 Baso % (Auto) 1.1 H Absolute Neuts (auto) 6.6 Absolute Lymphs (auto) 1.03 Nucleated RBC % 0 Radiography Diagnostic Testing: Clinical Impression(s) from Imaging Studies Brain CT 12/17/24 15:53 IMPRESSION: 1. Cerebral atrophy. 2. No evidence of acute intracranial pathology. 3. Other findings as noted. Findings were called to the [facility] emergency department on 12/17/2024 at 4:35 p.m. Reading Location: [id number] Head/Neck CTA 12/17/24 15:53 IMPRESSION: Right ICA stenosis of 75%. Left ICA stenosis of 50%. Additional atherosclerosis as above. Biapical pulmonary scarring and emphysema. Reading Location: [id number] Chest X-Ray 12/17/24 15:54 IMPRESSION: Hyperaerated lungs which can suggest COPD. Stable scarring. Reading Location: [id number] Discharge Plan Triage Chief Complaint: Stroke Alert [...] MD [Primary Care Provider] - Print Language: Luxembourger Disposition Disposition: Acute Care Hospital [facility] What to do if you have Problems For any increased pain, shortness of breath, bleeding, nausea or vomiting, chestpain, or any unexpected problems, contact your Primary Care Provider. Call [facility] ([phone]) or report to the closest Emergency Room. Call 911 if necessary. 12/17/24 6819 <Electronically signed by Seth Pritchard DO> Cosigner Signature (if applicable): CC: Dr. Daija Morton MD ~ Signed [facility] Work Phone: 1(748) 490-708407-01-2025 Radiology Diagnostic study [facility]07-01-2025 Radiology Diagnostic study [facility] Work Phone: 1(300) 861-351507-01-2025 Radiology Diagnostic study [facility]07-01-2025 Telephone encounter Note* Telephone Encounter - Kelly Zelaya, ОЛЕГ - 12/17/2024 2:20 PM EDT Frank Wilkes called in to give an update on the Pt. She states he was just [facility] for respiratory failure, now he is [...] pharmacy Pt would like to use. Kelly Zelaya, RN [facility]07-01-2025 Discharge summary Author Seth Pritchard [facility] Note Date/Time December 17, 2024 5:41p m [facility] Medical Records Department [address] [facility] [place] [address] Emergency Department Summary 12/17/24 MR#: [id number] Acct: [id number] Name: PEDRO PABLO SIERRA Rep #:[id number] : 1950 74 From: Seth Pritchard DO [...] was around noon according to at home. [facility] Medical History Weakness Debility Failure to thrive [...] 77.5 H Lymph % (Auto) 12.1 L [place] % (Auto) 7.8 Eos % (Auto) 1.1 Baso % (Auto) 1.1 H Absolute Neuts (auto) 6.6 Absolute Lymphs (auto) 1.03 Nucleated RBC % 0 Radiography Diagnostic Testing: Clinical Impression(s) from Imaging Studies Brain CT 12/17/24 15:53 IMPRESSION: 1. Cerebral atrophy. 2. No evidence of acute intracranial pathology. 3. Other findings as noted. Findings were called to the [facility] emergency department on 12/17/2024 at 4:35 p.m. Reading Location: [id number] Head/Neck CTA 12/17/24 15:53 IMPRESSION: Right ICA stenosis of 75%. Left ICA stenosis of 50%. Additional atherosclerosis as above. Biapical pulmonary scarring and emphysema. Reading Location: [id number] Chest X-Ray 12/17/24 15:54 IMPRESSION: Hyperaerated lungs which can suggest COPD. Stable scarring. Reading Location: [id number] Discharge Plan Triage Chief Complaint: Stroke Alert [...] MD [Primary Care Provider] - Print Language: Luxembourger Disposition Disposition: Acute Care Hospital [facility] What to do if you have Problems For any increased pain, shortness of breath, bleeding, nausea or vomiting, chestpain, or any unexpected problems, contact your Primary Care Provider. Call [facility] ([phone]) or report to the closest Emergency Room. Call 911 if necessary. 12/17/24 1741 <Electronically signed by Seth Pritchard DO> Cosigner Signature (if applicable): CC: Dr. Daija Morton MD ~ Signed [facility] Work Phone: 1(868) 435-508506-30-2025 Discharge summary Author Lisha Talamantes [facility] Note Date/Time December 16, 2024 12:5 3pm [facility] Medical Records Department [address] [place] [address] Discharge Summary 12/16/24 1137 MR#: [id number] Acct: [id number] Name: PEDRO PABLO SIERRA Rep #:[id number] : 1950 74 From: Lisha Talamantes DO PCP: Dr. Daija Morton MD Status:ADM I N Location: [facility] [id number]- 1 Providers Date of Admission: 12/13/24 Date [...] transdermal patch 14 mg transdermal DAILY NICOTINE 28 #28 ea 09/02/24 prednisone 20 mg tablet [...] male who presented to the emergency departmentat [facility] on 12/13/2024 with shortness of breath and wheezing. He has a history of chronic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 Visit Reason for Visit: Diagnoses [...] (Auto) 70.9 H, Lymph % (Auto) 20.9, [place] % (Auto) 6.2, Eos % (Auto) 0.4, [...] to thrive -Patient recently had been at [facility] and was discharged 08/20/2024 buthas been having diarrhea since that time -May be due to diarrhea but cannot say definitively, checking UA -PT/OT -08/27: UA ordered, yet to be collected, will follow-up, continue to work with physical therapy, case management social work following -08/28: Patient now agreeable to placement, placement avenues been pursued -08/29: Patient pending acceptance and pre-CERT for [facility], patient stable and willbe cleared for discharge once antibiotic and DC plan in place -08/30: Awaiting [facility] and [facility] determinations about payee so that patient can be placed at [facility], further dispo pending this -08/31: Patient accepted [...] Toribio MD Charges/Coding Visit Charges Inpatient E&M: 54333 Subs Hosp L1 09/01/24 1127 <Electronically signed by Celia Toribio MD> Cosigner Signature (if applicable): CC: ~ Signed [facility] Work Phone: 1(179) 709-153803-16-2025 Progress note [facility] Medical Records Department [address] [place] [address] Progress Note - Hospitalist 09/01/24 0758 MR#: [id number] Acct: [id number] Name: PEDRO PABLO SIERRA Rep #:[id number] : 1950 74 From: Celia Toribio MD PCP: Dr. Daija Morton MD Status:ADM I N Location: [place] [address]-1 Reason for Visit Reason for Visit: Diagnoses [...] %(Auto) 70.9 H, Lymph % (Auto) 20.9, [place] % (Auto) 6.2, Eos % (Auto) 0.4, [...] to thrive -Patient recently had been at [facility] and was discharged 08/20/2024 buthas been having diarrhea since that time -May be due to diarrhea but cannot say definitively, checking UA -PT/OT -08/27: UA ordered, yet to be collected, will follow-up, continue to work with physical therapy, case management social work following -08/28: Patient now agreeable to placement, placement avenues been pursued -08/29: Patient pending acceptance and pre-CERT for [facility], patient stable and willbe cleared for discharge once antibiotic and DC plan in place -08/30: Awaiting [facility] and [facility] determinations about payee so that patient can be placedat [facility], further dispo pending this -08/31: Patient accepted [...] Toribio MD Charges/Coding Visit Charges Inpatient E&M: 72839 Subs Hosp L1 09/01/24 1127 Cosigner Signature (if applicable): CC: ~ Signed [facility]03-15-2025 Progress note Author Celia Toribio [facility] Note Date/Time August 31, 2024 12: 30pm [facility] Medical Records Department [address] [place] [address] Progress Note - Hospitalist 08/31/24 0748 MR#: [id number] Acct: [id number] Name: PEDRO PABLO SIERRA Rep #:[id number] : 1950 74 From: Celia Toribio MD PCP: Dr. Daija Morton MD Status:ADM I N Location: [place]3 [id number] Reason for Visit Reason for Visit: Diagnoses [...] to thrive -Patient recently had been at [facility] and was discharged 08/20/2024 buthas been having [...] and DC plan in place -08/30: Awaiting [facility] and [facility] determinations about payee so that patient can be placed at [facility], further dispo pending this -08/31: Patient accepted [...] documentation, 36minutes Charges/Coding Visit Charges Inpatient E&M: 68007 Subs Hosp L2 08/31/24 1230 <Electronically signed by Celia Toribio MD> Cosigner Signature (if applicable): CC: ~ Signed [facility] Work Phone: 1(568) 484-419703-15-2025 Progress note [facility] Medical Records Department [address] [place] [address] Progress Note - Hospitalist 08/31/24 4448 MR#: [id number] Acct: [id number] Name: ARIEL SIERRAJAYY Pierce Rep #:[id number] : 1950 74 From: Celia Toribio MD PCP: Dr. Daija Morton MD Status:ADM I N Location: MS3 TQ384-2 Reason for Visit Reason for Visit: Diagnoses [...] to thrive -Patient recently had been at [facility] and was discharged 08/20/2024 buthas been having [...] and DC plan in place -08/30: Awaiting [facility] and [facility] determinations about payee so that patient can be placedat [facility], further dispo pending this -08/31: Patient accepted [...] documentation, 36minutes Charges/Coding Visit Charges Inpatient E&M: 26649 Subs Hosp L2 08/31/24 1230 Cosigner Signature (if applicable): CC: ~ Signed [facility]03-14-2025 Consult note Author Elton Moore [facility] Note Date/Time August 30, 2024 1:4 6pm [facility] Medical Records Department [address] [place] [address] Consultation - Infectious Dx 08/30/24 1343 MR#: [id number] Acct: [id number] Name: PEDRO PABLO SIERRA Rep #:[id number] : 1950 74 From: Elton pierce MD PCP: Dr. Daija Morton MD Status:ADM I N Location: [place] [address] Assessment & Plan Assessment/Plan (1) Weakness: (2) [...] compression fracture of L-spine, htn, afib, presented 3/9 with several days weakness, unable to care for himself at home. Had been having some diarrhea, not feeling well. Some dry cough. No dysuria orurine changes. Now on zosyn for (+) ucx. Feeling ok today. Full ROS performed and neg except as noted above. [facility] Medical History Compression fx, lumbar spine [...] (Auto) 64.8, Lymph % (Auto) 17.8 L, [place] % (Auto) 7.6, Eos % (Auto) 7.8 [...] applicable): CC: Dr. Daija Morton MD~ Signed [facility] Work Phone: 1(217) 616-411303-14-2025 Consult note [facility] Medical Records Department [address] [place] [address] Consultation - Infectious Dx 08/30/24 1343 MR#: [id number] Acct: [id number] Name: PEDRO PABLO SIERRA Rep #:[id number] : 1950 74 From: Elton pierce MD PCP: Dr. Daija Morton MD Status:ADM I N Location: [place] [address] Assessment & Plan Assessment/Plan (1) Weakness: (2) [...] compression fracture of L-spine, htn, afib, presented 3/ with several days weakness, unable to care for himself at home. Had been having some diarrhea, not feeling well. Some dry cough. No dysuria orurine changes. Now on zosyn for (+) ucx. Feeling ok today. Full ROS performed and neg except as noted above. [facility] Medical History Compression fx, lumbar spine [...] %(Auto) 64.8, Lymph % (Auto) 17.8 L, [place] % (Auto) 7.6, Eos % (Auto) 7.8 [...] applicable): CC: Dr. Daija Morton MD~ Signed [facility]03-14-2025 Progress note Author Celia Toribio [facility] Note Date/Time August 30, 2024 11: 11am [facility] Medical Records Department [address] [place] [address] Progress Note - Hospitalist 08/30/24 0709 MR#: [id number] Acct: [id number] Name: PEDRO PABLO SIERRA Rep #:[id number] : 1950 74 From: Celia Toribio MD PCP: Dr. Daija Morton MD Status:ADM I N Location: [place] [address] Reason for Visit Reason for Visit: Diagnoses [...] (Auto) 64.8, Lymph % (Auto) 17.8 L, [place] % (Auto) 7.6, Eos % (Auto) 7.8 [...] to thrive -Patient recently had been at [facility] and was discharged 08/20/2024 buthas been having diarrhea since that time -May be due to diarrhea but cannot say definitively, checking UA -PT/OT -08/27: UA ordered, yet to be collected, will follow-up, continue to work with physical therapy, case management social work following -08/28: Patient now agreeable to placement, placement avenues been pursued -08/29: Patient pending acceptance and pre-CERT for [facility], patient stable and willbe cleared for discharge once antibiotic and DC plan in place -08/30: Awaiting [facility] and [facility] determinations about payee so that patient can be placed at [facility], further dispo pending this # Urinary tract [...] documentation, 36minutes Charges/Coding Visit Charges Inpatient E&M: 42617 Subs Hosp L2 08/30/24 1111 <Electronically signed by Celia Toribio MD> Cosigner Signature (if applicable): CC: ~ Signed [facility] Work Phone: 1(674) 370-607903-14-2025 Progress note [facility] Medical Records Department [address] [place] [address] Progress Note - Hospitalist 08/30/24708 MR#: [id number] Acct: [id number] Name: PEDRO PABLO SIERRA Rep #:[id number] : 1950 74 From: Celia Toribio MD PCP: Dr. Daija Morton MD Status:ADM I N Location: [facility] YD432-3 Reason for Visit Reason for Visit: Diagnoses [...] %(Auto) 64.8, Lymph % (Auto) 17.8 L, [place] % (Auto) 7.6, Eos % (Auto) 7.8 [...] to thrive -Patient recently had been at [facility] and was discharged 08/20/2024 buthas been having diarrhea since that time -May be due to diarrhea but cannot say definitively, checking UA -PT/OT -08/27: UA ordered, yet to be collected, will follow-up, continue to work with physical therapy, case management social work following -08/28: Patient now agreeable to placement, placement avenues been pursued -08/29: Patient pending acceptance and pre-CERT for [facility], patient stable and willbe cleared for discharge once antibiotic and DC plan in place -08/30: Awaiting [facility] and [facility]PS determinations about payee so that patient can be placedat [facility], further dispo pending this # Urinary tract [...] documentation, 36minutes Charges/Coding Visit Charges Inpatient E&M: 79772 Subs Hosp L2 08/30/24 1111 Cosigner Signature (if applicable): CC: ~ Signed [facility]03-13-2025 Progress note Author Celia Toribio [facility] Note Date/Time August 29, 2024 5:2 5pm [facility] Medical Records Department [address] [place] [address] Progress Note - Hospitalist 08/29/24 0805 MR#: [id number] Acct: [id number] Name: PEDRO PABLO SIERRA Rep #:[id number] : 1950 74 From: Celia Toribio MD PCP: Dr. Daija Morton MD Status:ADM I N Location: [place] [address] Reason for Visit Reason for Visit: Diagnoses [...] % (Auto) 59.8, Lymph % (Auto) 22.3, [place] % (Auto) 8.0, Eos % (Auto) 8.2 [...] to thrive -Patient recently had been at [facility] and was discharged 08/20/2024 buthas been having [...] bowel movement earliertoday, diarrhea resolved #DVT ppx: [facility] Celia Toribio MD Time spent in the patient's overall evaluation,decision-making process, review of diagnostic data, adjustment of management, discussion with other providers, nursing nursing and ancillary staff involved in patient's care documentation, 35minutes Charges/Coding Visit Charges Inpatient E&M: 90734 Subs Hosp L2 08/29/24 1725 <Electronically signed by Celia Toribio MD> Cosigner Signature (if applicable): CC: ~ Signed [facility] Work Phone: [phone]) 910-678803-13-2025 Progress note [facility] Medical Records Department [address] [place] [address] Progress Note - Hospitalist 08/29/24 0805 MR#: [id number] Acct: [id number] Name: PEDRO PABLO SIERRA Rep #:[id number] : 1950 74 From: Celia Toribio MD PCP: Dr. Daija Morton MD Status:ADM I N Location: [place] UB244-0 Reason for Visit Reason for Visit: Diagnoses [...] % (Auto) 59.8, Lymph % (Auto) 22.3, [place] % (Auto) 8.0, Eos % (Auto) 8.2 [...] to thrive -Patient recently had been at [facility] and was discharged 08/20/2024 buthas been having [...] documentation, 35minutes Charges/Coding Visit Charges Inpatient E&M: 06378 Subs Hosp L2 08/29/24 1725 Cosigner Signature (if applicable): CC: ~ Signed [facility]03-12-2025 Progress note Author Celia Toribio [facility] Note Date/Time August 28, 2024 3:0 4pm [facility] Medical Records Department [address] [place] [address] Progress Note - Hospitalist 08/28/24 1458 MR#: [id number] Acct: [id number] Name: PEDRO PABLO SIERRA Rep #:[id number] : 1950 74 From: Celia Toribio MD PCP: Dr. Daija Morton MD Status:ADM I N Location: [place] JF465-8 Reason for Visit Reason for Visit: Diagnoses [...] % (Auto) 55.6, Lymph % (Auto) 23.4, [place] % (Auto) 11.3 H, Eos % (Auto) [...] to thrive -Patient recently had been at [facility] and was discharged 08/20/2024 buthas been having [...] documentation, 35minutes Charges/Coding Visit Charges Inpatient E&M: 63686 Subs Hosp L2 08/28/24 1504 <Electronically signed by Celia Toribio MD> Cosigner Signature (if applicable): CC: ~ Signed [facility] Work Phone: 1(156) 108-826703-12-2025 Progress note [facility] Medical Records Department [address] [place] [address] Progress Note - Hospitalist 08/28/24 7244 MR#: [id number] Acct: [id number] Name: PEDRO PABLO SIERRA Rep #:[id number] : 1950 74 From: Celia Toribio MD PCP: Dr. Daija Morton MD Status:ADM I N Location: [facility] UD342-0 Reason for Visit Reason for Visit: Diagnoses [...] % (Auto) 55.6, Lymph % (Auto) 23.4, [place] % (Auto) 11.3 H, Eos % (Auto) [...] to thrive -Patient recently had been at [facility] and was discharged 08/20/2024 buthas been having [...] home medications #GERD -Continue PPI #DVT [facility]px[facility] Celia Toribio MD Time spent in the patient's overall evaluation,decision-making process, review of diagnostic data, adjustment of management, discussion with other providers, nursing nursing and ancillary staff involved in patient's care documentation, 35minutes Charges/Coding Visit Charges Inpatient E&M: 08721 Subs Hosp L2 08/28/24 1501 Cosigner Signature (if applicable): CC: ~ Signed [facility]03-11-2025 Evaluation note* Diagnosis Onset Date Resolution Status Admit Date Acute diarrhea acute August 6:22pm Debility acute August 27 6:22pm Weakness acute August 27 6:22pm 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 August 172024 6:22pm [facility] Work Phone: [phone] 587-153703-11-2025 Evaluation note* Diagnosis Onset Date Resolution Status Admit Date Acute diarrhea resolved August 6:22pm Debility inactive August 27 6:22pm Failure to thrive inactive August 172024 6:22pm Weakness inactive August 27 6:22pm [facility] Work Phone: 1(886) 975-857903-11-2025 Evaluation note* Diagnosis Onset Date Resolution Status Admit Date Acute diarrhea resolved August 6:22pm Debility inactive August 27 6:22pm Failure to thrive inactive August 172024 6:22pm Weakness inactive August 27 6:22pm COPD exacerbation chronic December 132024 8:07pm [facility] Work Phone: [phone]) [phone] Evaluation note* Diagnosis Onset Date Resolution Status Admit Date Acute diarrhea resolved August 6:22pm Debility inactive August 27 6:22pm Failure to thrive inactive August 172024 6:22pm Weakness inactive August 27 6:22pm Acute on chronic respiratory failure with hypoxia and hypercapnia chronic December 13, 2024 8:07pm COPD exacerbation chronic December 132024 8:07pm [facility] Work Phone: 1(855) [phone] Evaluation note* Diagnosis Onset Date Resolution Status [...] December 5:51pm Hypertension chronic December 17 5:51pm [facility] Work Phone: [phone]) 720-724903-11-2025 Evaluation note* Diagnosis Onset Date Resolution Status [...] 2 :58pm COPD exacerbation resolved December 2:58pm [facility] Work Phone: 1(829) 362-590303-11-2025 Progress note Author Celia Toribio [facility] Note Date/Time August 27, 2024 4:1 3pm [facility] Medical Records Department [address] [place] [address] Progress Note - Hospitalist 08/27/241612 MR#: [id number] Acct: [id number] Name: PEDRO PABLO SIERRA R Rep #:[id number] : 1950 74 From: Celia Toribio MD PCP: Dr. Daija Morton MD Status:ADM I NO Location: [place] [address] Hospitalist Note Repeat hemoglobin actually improved, suspect that this was then margin of bladder, will DC FOBT 08/27/241612 <Electronically signed by Celia Toribio MD> Cosigner Signature (if applicable): CC: ~ Signed [facility] Work Phone: [phone]) 679-967203-11-2025 Progress note [facility] Medical Records Department [address] [place] [address] Progress Note - Hospitalist 08/27/241612 MR#: [id number] Acct: [id number] Name: PEDRO PABLO SIERRA R Rep #:[id number] : 1950 74 From: Celia Toribio MD PCP: Dr. Daija Morton MD Status:ADM I NO Location: [place] [address] Hospitalist Note Repeat hemoglobin actually improved, suspect that this was then margin of bladder, will DC FOBT 08/27/241612 Cosigner Signature (if applicable): CC: ~ Signed [facility]03-11-2025 Progress note Author Celia [facility] Note Date/Time August 27, 2024 1:3 2pm [facility] Medical Records Department [address] [facility] [place] [address] Progress Note - Hospitalist 08/27/24 1332 MR#: [id number] Acct: [id number] Name: PEDRO PABLO SIERRA R Rep #:[id number] : 1950 74 From: Celia Toribio MD PCP: Dr. Daija Morton MD Status:ADM I NO Location: [place] [address] Hospitalist Note UA abnormal and is suggestive of UTI and given this and patient suprapubic tenderness we will start patient on Rocephin and await urine culture 08/27/24 133 <Electronically signed by Celia Toribio MD> Cosigner Signature (if applicable): CC: ~ Signed [facility] Work Phone: [phone]) [phone] Progress note Author Celia Toribio [facility] Note Date/Time August 27, 2024 12: 52pm [facility] Medical Records Department [address] [place] [address] Progress Note - Hospitalist 08/27/24 0831 MR#: [id number] Acct: [id number] Name: PEDRO PABLO SIERRA R Rep #:[id number] : 1950 74 From: Celia Toribio MD PCP: Dr. Daija Morton MD Status:ADM I NO Location: [place] [address] Reason for Visit Reason for Visit: Diagnoses [...] Neut % (Auto) 56.2, Lymph % (Auto) 23.0,[place] % (Auto) 13.1 H, Eos % (Auto) [...] to thrive -Patient recently had been at [facility] and was discharged 08/20/2024 buthas been having [...] documentation, 36minutes Charges/Coding Visit Charges Inpatient E&M: 90628 Subs Hosp L2 08/27/24 1252 <Electronically signed by Celia Toribio MD> Cosigner Signature (if applicable): CC: ~ Signed [facility] Work Phone: [phone]) 571-110803-11-2025 Progress note [facility] Medical Records Department [address] [place] [address] Progress Note - Hospitalist 08/27/241331 MR#: [id number] Acct: [id number] Name: PEDRO PABLO SIERRA Rep #:[id number] : 1950 74 From: Celia Toribio MD PCP: Dr. Daija Morton MD Status:ADM I NO Location: [place] [address] Hospitalist Note UA abnormal and is suggestive of UTI and given this and patient suprapubic tenderness we will startpatient on Rocephin and await urine culture 08/27/241331 Cosigner Signature (if applicable): CC: ~ Signed [facility]03-11-2025 Progress note [facility] Medical Records Department [address] [place] [address] Progress Note - Hospitalist 08/27/24 0831 MR#: [id number] Acct: [id number] Name: PEDRO PABLO SIERRA R Rep #:[id number] : 1950 74 From: Celia Toribio MD PCP: Dr. Daija Morton MD Status:ADM I NO Location: [place] UT799-3 Reason for Visit Reason for Visit: Diagnoses [...] Neut % (Auto) 56.2, Lymph % (Auto) 23.0,[place] % (Auto) 13.1 H, Eos % (Auto) [...] to thrive -Patient recently had been at [facility] and was discharged 08/20/2024 buthas been having [...] documentation, 36minutes Charges/Coding Visit Charges Inpatient E&M: 11381 Subs Hosp L2 08/27/24 1252 Cosigner Signature (if applicable): CC: ~ Signed [facility]03-10-2025 Progress note Author Celia Toribio [facility] Note Date/Time August 26, 2024 4:5 4pm [facility] Medical Records Department [address] [place] [address] Progress Note - Hospitalist 08/26/24 0907 MR#: [id number] Acct: [id number] Name: PEDRO PABLO SIERRA Rep #:[id number] : 1950 74 From: Celia Toribio MD PCP: Dr. Daija Morton MD Status:ADM I NO Location: [place] NS932-9 Reason for Visit Reason for Visit: Diagnoses [...] 78.4 H, Lymph % (Auto) 10.3 L, [place] % (Auto) 9.9, Eos % (Auto) 0.3, [...] % (Auto) 60.3, Lymph % (Auto) 19.8, [place]% (Auto) 15.2 H, Eos % (Auto) 3.4, [...] IMPRESSION: No acute airspace abnormality. Reading Location: [facility] Physical Exam Narrative General: Alert, [...] to thrive -Patient recently had been at [facility] and was discharged 08/20/2024 buthas been having [...] Toribio MD Charges/Coding Visit Charges Inpatient E&M: 91890 Subs Hosp L2 08/26/24 1654 <Electronically signed by Celia Toribio MD> Cosigner Signature (if applicable): CC: ~ Signed [facility] Work Phone: [phone]) [phone] Progress note [facility] Medical Records Department [address] [place] [address] Progress Note - Hospitalist 08/26/24 09 MR#: [id number] Acct: [id number] Name: PEDRO PABLO SIERRA Rep #:[id number] : 1950 74 From: Celia Toribio MD PCP: Dr. Daija Morton MD Status:ADM I NO Location: [place] FY175-2 Reason for Visit Reason for Visit: Diagnoses [...] 78.4 H, Lymph % (Auto) 10.3 L, [place] % (Auto) 9.9, Eos % (Auto) 0.3, [...] Neut %(Auto) 60.3, Lymph % (Auto) 19.8, [place]% (Auto) 15.2 H, Eos % (Auto) 3.4, [...] IMPRESSION: No acute airspace abnormality. Reading Location: [facility] Physical Exam Narrative General: Alert, [...] to thrive -Patient recently had been at [facility] and was discharged 08/20/2024 buthas been having [...] Toribio MD Charges/Coding Visit Charges Inpatient E&M: 13341 Subs Hosp L2 08/26/24 1650 Cosigner Signature (if applicable): CC: ~ Signed [facility]03-09-2025 History and physical note Author Lisha Talamantes [facility] Note Date/Time August 25, 2024 7:00 pm [facility] Medical Records Department [address] [place] [address] H&P Exam - Hospitalist 08/25/24 1820 MR#: [id number] Acct: [id number] Name: PEDRO PABLO SIERRA Rep #:[id number] : 1950 74 From: Lisha Talamantes DO PCP: Dr. Daija Morton MD Status:ADM I NO Location: [place] FO681-9 HPI - General General Date of Admission: 08/25/24 Date of Service: 08/25/24 Chief Complaint: Diarrhea/generalized weakness HPI Narrative PEDRO PABLO SIERRA, is a 74 M who presented to the emergency department [facility] on 08/25/2024 with a chief complaint of generalized weakness and diarrhea. Patient had recently been at [facility] and was discharged about 5 days [...] Chest x-ray is unremarkable for acute findings. [facility] Medical History Compression fx, lumbar spine [...] other Vital Signs Vital Signs Vital Signs: 03/09/25 16:12 Temperature 97.7 F L Temperature Source [...] 78.4 H, Lymph % (Auto) 10.3 L, [place] % (Auto) 9.9, Eos % (Auto) 0.3, [...] IMPRESSION: No acute airspace abnormality. [facility] Assessment & Plan Assessment/Plan (1) Acute [...] the current livingenvironment -Was recently discharged from [facility] however patient wasadamant that he did [...] need clarified Charges/Coding Visit Charges Inpatient E&M: 05611 Init Hosp L2 08/25/24 1900 <Electronically signed by iLsha Talamantes DO> Cosigner Signature (if applicable): CC: Dr. Daija Morton MD; Dr. Lisha Talamantes DO~ Signed [facility] Work Phone: [phone]) 602-716203-09-2025 Discharge summary Author Jaden Jauregui [facility] Note Date/Time August 25, 2024 6:15 pm [facility] Medical Records Department [address] [place] [address] Emergency Department Summary 08/25/24 MR#: [id number] Acct: [id number] Name: PEDRO PABLO SIERRA Rep #:[id number] : 1950 74 From: Jaden Jauregui MD [...] he has been in a senior care [facility] when he arrived home 5 days ago, [...] of C. difficile he does not know. [facility] Medical History Compression fx, lumbar spine Hypertension [...] 78.4 H Lymph % (Auto) 10.3 L [place] % (Auto) 9.9 Eos % (Auto) 0.3 [...] Debility, Acute diarrhea, Mild dehydration Disposition Disposition: [facility] What to do if you have Problems For any increased pain, shortness of breath, bleeding, nausea or vomiting, chestpain, or any unexpected problems, contact your Primary Care Provider. Call [facility] ([phone]) or report to the closest Emergency Room. Call 911 if necessary. 08/25/241814 <Electronically signed by Jaden Jauregui MD> Cosigner Signature (if applicable): CC: Dr. Daija Morton MD ~ Signed [facility] Work Phone: 1(248) 922-863603-09-2025 History and physical note [facility] Medical Records Department [address] [place] [address] H&P Exam - Hospitalist 08/25/24 1820 MR#: [id number] Acct: [id number] Name: PEDRO PABLO SIERRA Rep #:[id number] : 1950 74 From: Lisha Talamantes DO PCP: Dr. Daija Morton MD Status:ADM I NO Location: [place] HN291-4 HPI - General General Date of Admission: 08/25/24 Date of Service: 08/25/24 Chief Complaint: Diarrhea/generalized weakness HPI Narrative PEDRO PABLO SIERRA, is a 74 M who presented to the emergency department [facility] on 08/25/2024 with a chief complaint of generalized weakness and diarrhea. Patient had recently been at [facility] and was discharged about 5 days [...] Chest x-ray is unremarkable for acute findings. [facility] Medical History Compression fx, lumbar spine [...] 78.4 H, Lymph % (Auto) 10.3 L, [place] % (Auto) 9.9, Eos % (Auto) 0.3, [...] IMPRESSION: No acute airspace abnormality. [facility] Assessment & Plan Assessment/Plan (1) Acute [...] the current livingenvironment -Was recently discharged from [facility] however patient wasadamant that he didnot [...] need clarified Charges/Coding Visit Charges Inpatient E&M: 99179 Init Hosp L2 08/25/24 1900 Cosigner Signature (if applicable): CC: Dr. Daija Morton MD; Dr. Lisha Talamantes, DO~ Signed [facility]03-09-2025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 [id number] Name: PEDRO PABLO SIERRA Rep #:[id number] : 1950 73 From: Brody Carson PCP: Dr. Daija Morton MD Status:ADM I N [facility] - General General Date of Admission: 07/30/23 Date of Service: 07/30/23 Chief Complaint: Shortness of breath and wheezing for about 4 days. Confused and disoriented. HPI Narrative PEDRO PABLO SIERRA, is a 73 M with history of COPD on 3 to 5 L of oxygen from [facility] came to ED for shortness of breath along with wheezing and cough. [facility], patient was febrile. Patient was found tachypneic [...] 20 mg IV. Patient is further admitted [facility] Medical History Asthma Atrial fibrillation Chronic [...] 76.5 H, Lymph % (Auto) 10.9 L, [place] % (Auto) 10.7 H, Eos % (Auto) [...] Clarity Clear, Urine pH 7.0, Ur Specific Deepwater 1.010, Urine Protein 30 H, Urine Glucose [...] side. 5. Moderate to severe chronic malnutrition: Food Mobile Driver consult. Nutritional supplement. 6. History of paroxysmal [...] 76.5 H, Lymph % (Auto) 10.9 L, [place] % (Auto) 10.7 H, Eos % (Auto) [...] Clarity Clear, Urine pH 7.0, Ur Specific Deepwater 1.010, Urine Protein 30 H, Urine Glucose [...] 21:10 EST Reading Location ID and State: [facility] / [place] Tel [phone], Service support , Charges/Coding Visit Charges Inpatient E&M: 52126 Init Hosp L3 07/31/23 0101 <Electronically signed by Brody Maynard MD> Cosigner Signature (if applicable): CC: Dr. Daija Morton MD; Dr. Brody Maynard MD~ Signed [facility] Work Phone: 1(993) 387-537802-12-2024 Discharge summary Author Huber Alvarado [facility] July 31, 2023 12:08am Note Date/Time July 30, 2023 8:57pm [facility] Medical Records Department [address] [place] [address] Emergency Department Summary 07/30/23 MR#: [id number] Acct: [id number] Name: PEDRO PABLO SIERRA Rep #:[id number] : 1950 73 From: Андрей CORTEZ PCP: [...] is tachypneic. He does have audible wheezing. [facility] <DIEGO Hopper - Last Filed: 07/30/23 22:27> [facility] Medical History Asthma Atrial fibrillation Chronic [...] Cannula Oxygen Flow Rate (L/min) 3 3 [facility] <DIEGO Hopper - Last Filed: 07/30/23 22:27> [facility] Lab Data Labs: Laboratory Results - last 24 hr 07/30/23 07/30/23 20:51 21:55 WBC 5.5 RBC 4.07 L Hgb 13.3 Hct 40.4 MCV 99.3 H MCH 32.7 H MCHC 32.9 RDW Std Deviation 48.3 H RDW Coeff of Aly 13.2 Plt Count 262 MPV 9.4 Immature Gran % (Auto) 0.500 Neut % (Auto) 76.5 H Lymph % (Auto) 10.9 L [place] % (Auto) 10.7 H Eos % (Auto) [...] Clarity Clear Urine pH 7.0 Ur Specific Deepwater 1.010 Urine Protein 30 H Urine Glucose [...] Alvarado MD - Last Filed: 07/31/23 00:08> MDM MDM Narrative Medical decision making narrative: I have personally performed a face to face assessment of the patient and have reviewed the LUIS Note. I performed a substantive portion of [...] 76.5 H Lymph % (Auto) 10.9 L [place] % (Auto) 10.7 H Eos % (Auto) [...] Clarity Clear Urine pH 7.0 Ur Specific Deepwater 1.010 Urine Protein 30 H Urine Glucose [...] acute exacerbation Disposition Disposition: [facility] What to do if you have Problems For any increased pain, shortness of breath, bleeding, nausea or vomiting, chestpain, or any unexpected problems, contact your Primary Care Provider. Call [facility] ([phone]) or report to the closest Emergency Room. Call 911 if necessary. 07/30/232226 <Electronically signed by Андрей CORTEZ> Cosigner Signature (if applicable): 07/31/23 0008 <Electronically signed by Huber Alvarado MD> CC: Dr. Daija Morton MD ~ Signed [facility] Work Phone: 1(617) 608-647502-11-2024 Discharge summary Author Huber Alvarado [facility] July 31, 2023 12:08am Note Date/Time July 30, 2023 8:57pm [facility] Medical Records Department [address] [place] [address] Emergency Department Summary 07/30/23 MR#: [id number] Acct: [id number] Name: PEDRO PABLO SIERRA Rep #:[id number] : 1950 73 From: Андрей CORTEZ PCP: [...] is tachypneic. He does have audible wheezing. [facility] <DIEGO Hopper - Last Filed: 07/30/23 22:27> [facility] Medical History Asthma Atrial fibrillation Chronic [...] Cannula Oxygen Flow Rate (L/min) 3 3 [facility] <DIEGO Hopper - Last Filed: 07/30/23 22:27> [facility] Lab Data Labs: Laboratory Results - last 24 hr 07/30/23 07/30/23 20:51 21:55 WBC 5.5 RBC 4.07 L Hgb 13.3 Hct 40.4 MCV 99.3 H MCH 32.7 H MCHC 32.9 RDW Std Deviation 48.3 H RDW Coeff of Aly 13.2 Plt Count 262 MPV 9.4 Immature Gran % (Auto) 0.500 Neut % (Auto) 76.5 H Lymph % (Auto) 10.9 L [place] % (Auto) 10.7 H Eos % (Auto) [...] Clarity Clear Urine pH 7.0 Ur Specific Deepwater 1.010 Urine Protein 30 H Urine Glucose [...] Alvarado MD - Last Filed: 07/31/23 00:08> [facility] Narrative Medical decision making narrative: I have personally performed a face to face assessment of the patient and have reviewed the LUIS Note. I performed a substantive portion of [...] 76.5 H Lymph % (Auto) 10.9 L [place] % (Auto) 10.7 H Eos % (Auto) [...] Clarity Clear Urine pH 7.0 Ur Specific Deepwater 1.010 Urine Protein 30 H Urine Glucose [...] A, COPD with acute exacerbation Disposition Disposition: [facility] What to do if you have Problems For any increased pain, shortness of breath, bleeding, nausea or vomiting, chestpain, or any unexpected problems, contact your Primary Care Provider. Call [facility] ([phone]) or report to the closest Emergency Room. Call 911 if necessary. 07/30/232226 <Electronically signed by Андрей LEEC> Cosigner Signature (if applicable): 07/31/23 0008 <Electronically signed by Huber Alvarado MD> CC: Dr. Daija Morton MD ~ Signed [facility] Work Phone: 1(332) 832-393802-01-2024 Miscellaneous Notes* Telephone Encounter - Saundra George RN - 07/20/2023 8:49 AM EST Spoke with patient and provider message reviewed. Message left for Mahnaz with [facility] to call back if any questions. Saundra George RN * Telephone Encounter - Bryce Rogers MD - 07/19/2023 5:30 PM EST Continue to monitor. Follow up with Anjel next week as scheduled. Do fasting labs as ordered. * Telephone Encounter - Saundra George RN - 07/19/2023 2:59 PM EST Mahnaz with [facility] calls to give provider update. Patient was seen today for HH visit and during visit complained of abdominal pain, rib pain, and chest pain with coughing. Afebrile. Productive cough with clear/yellow mucus. Mahnaz reports patient continues to smoke and cough is chronic. Message left on voicemail of Sondra Alejo [phone] to request Pedro Pablo contact the office for further triage. Saundra George RN documented in [facility] encounter[facility]-2024 Note. MICRO - Microbiology PROCEDURE: Urine Culture [*1] SOURCE: Urine, Clean Catch BODY SITE: COLLECTED DATE/TIME: 07/10/2023 12:00 EST RECEIVED DATE/TIME: 07/10/2023 16:50 EST START DATE/TIME: 07/10/2023 16:50 EST FREE TEXT SOURCE: FINAL REPORTS Final Report [] Verified Date/Time/Personnel: 07/11/2023 14:00 EST 10,000 - 50,000 cfu/ml Mixed growth consistent with normal urogenital kishore. Performing Locations *1: This test was performed at: [address], [facility] , [facility] ([place])05-30-2023 Miscellaneous Notes* Telephone Encounter - Kelly Zelaya [...] you. Kelly Zelaya, ОЛЕГ. documented in this encounterJoint [facility]12-12-2023 Miscellaneous Notes* Telephone Encounter - Isabella [...] scheduled Isabella Hdz LPN documented in this encounterJoint [facility]12-04-2023 Miscellaneous Notes* Telephone Encounter - Nani Webb LPN - 05/22/2023 10:17 AM EST Stella with [facility] called in and message below given. Stella's PH>[phone]. Nani Webb LPN * Telephone Encounter - Sammi Cleaning LPN - 05/19/2023 7:10 PM EST Message left on secure voicemail. Sammi Cleaning LPN * Telephone Encounter - Keara Shin MD - 05/19/2023 6:45 PM EST Okay verbal order * Telephone Encounter - Bing Delgado RN - 05/19/2023 1:33 PM EST [facility]- reports patient will be discharged today with orders for SN & PT. would like to see patient this weekend, and no later than Monday. Requesting verbal order to follow for [facility]. Please phone [facility] with verbal: [phone] documented in this encounterJoint [facility]10-17-2023 Discharge summary Author Frankie Galindo [facility] April 04, 2023 10:02am Note Date/Time April 04, 2023 9 :21am [facility] Medical Records Department [address] [place] [address] Transfer to [facility] MR#: [id number] Acct: [id number] Name: PEDRO PABLO SIERRA Shannan Rep #:[id number] : 1950 72 From: Frankie Galindo MD PCP: Dr. Daija Morton MD Status:ADM I N Certification of patient admission REQUIRED AT TIME OF ADMISSION. I CERTIFY THAT POST-HOSPITAL ECF SERVICES ARE REQUIRED TO BE GIVEN ON AN IN-PATIENT BASIS BECAUSE OF THE ABOVE NAMED PATIENT'S NEED FOR JAIL CARE ON A CONTINUING BASIS FOR THE [...] Requested for PT OT eval and social worker psychiatric to assist with discharge planning 3. 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 Will provide chocolate ensure compact tid [...] cbc while on iv abx. Fax to [phone] sennosides-docusate sodium [Stool Softener-Stimulant Laxat] 8.6-50 mg [...] in before D/C Order can be placed): [facility] (1) UTI (urinary tract infection) Qualifiers: Urinary tract infection type: acute cystitis Hematuria presence: without hematuria Qualified Code(s): N30.00 - Acute cystitis without hematuria 04/04/23 1002 <Electronically signed by Frankie Galindo MD> Cosigner Signature (if applicable): CC: Dr. Daija Morton MD; Dr. Fran Cartwright MD; Dr. Celia Toribio MD; Dr. Elton Moore MD ~ [facility] Work Phone: 1(564) 610-108510-17-2023 Progress note Author Frankie Galindo [facility] April 04, 2023 9:21am Note Date/Time April 04, 2023 7 :31am [facility] Medical Records Department [address] [place] [address] Progress Note - Hospitalist 04/04/23 0731 MR#: [id number] Acct: [id number] Name: PEDRO PABLO SIERRA Rep #:[id number] : 1950 72 From: Frankie Galindo MD PCP: Dr. Daija Morton MD Status:ADM I N Location: [address] Reason for Visit Reason for Visit: [...] % (Auto) 64.4, Lymph % (Auto) 23.6, [place] % (Auto) 6.3, Eos % (Auto) 3.3, [...] Requested for PT OT eval and social worker psychiatric to assist with discharge planning 3. Chronic [...] documentation, 36minutes. Charges/Coding Visit Charges Inpatient E&M: 89409 Subs Hosp L2 04/04/23 0921 <Electronically signed by Frankie Galindo MD> Cosigner Signature (if applicable): CC: ~ Signed [facility] Work Phone: 1(451) 725-230910-16-2023 Consult note Author Elton Moore [facility] April 03, 2023 5:06pm Note Date/Time April 03, 2023 5 :04pm [facility] Medical Records Department [address] [place] [address] Consultation - Infectious Dx 04/03/23 1703 MR#: [id number] Acct: [id number] Name: PEDRO PABLO SIERRA Rep #:[id number] : 1950 72 From: Elton pierce MD PCP: Dr. Daija Morton MD Status:ADM I N Location: ID3 CM003-6 Assessment & Plan Assessment/Plan (1) Acute UTI: PLAN: esbl ecoli uti - on meropenem. Will order midline and 7 more days ertapenem with weekly labs. Will brenna, boo youi HPI Consult Data Date of Consult: 04/03/23 HPI Narrative Reason for Consultation: uti HPI Narrative: PEDRO PABLO SIERRA, is a 72 M who presented with several days weakness, falls, dysuria, fatigue. Admitted on ceftriaxone, now on meropenem. Dysuria improved, no fever here. No abd pain. Full ROS performed and neg except as noted above. [facility] Medical History Asthma Atrial fibrillation Chronic [...] % (Auto) 63.8, Lymph % (Auto) 22.5, [place]% (Auto) 7.6, Eos % (Auto) 3.9, Baso [...] Toribio MD; Dr. Elton Moore MD~ Signed [facility] Work Phone: 1(132) 337-734910-16-2023 Progress note Author [facility] April 03, 2023 10:50am Note Date/Time April 03, 2023 1 0:51am [facility] Medical Records Department [address] [place] [address] Progress Note - Hospitalist 04/03/23 1046 MR#: [id number] Acct: [id number] Name: PEDRO PABLO SIERRA Rep #:[id number] : 1950 72 From: Frankie Galindo MD PCP: Dr. Daija Morton MD Status:ADM I N Location: [place] [address] Reason for Visit Reason for Visit: Diagnoses [...] % (Auto) 63.8, Lymph % (Auto) 22.5, [place]% (Auto) 7.6, Eos % (Auto) 3.9, Baso [...] Requested for PT OT eval and social worker psychiatric to assist with discharge planning 3. Chronic [...] documentation, 36minutes. Charges/Coding Visit Charges Inpatient E&M: 93748 Subs Hosp L2 04/03/23 1050 <Electronically signed by Frankie Galindo MD> Cosigner Signature (if applicable): CC: ~ Signed [facility] Work Phone: 1(585) 187-912810-15-2023 Progress note Author Frankie Galindo [facility] April 02, 2023 9:12am Note Date/Time April 02, 2023 7 :35am [facility] Medical Records Department [address] [place] [address] Progress Note - Hospitalist 04/02/23 0735 MR#: [id number] Acct: [id number] Name: PEDRO PABLO SIERRA Rep #:[id number] : 1950 72 From: Frankie Galindo MD PCP: Dr. Daija Morton MD Status:ADM I N Location: [place] [address] Reason for Visit Reason for Visit: Diagnoses [...] % (Auto) 58.6, Lymph % (Auto) 23.5, [place] % (Auto) 11.2 H, Eos % (Auto) [...] Requested for PT OT eval and social worker psychiatric to assist with discharge planning 3. Chronic [...] staff involved in patient's care documentation, 36minutes. 04/02/2312 <Electronically signed by Frankie Galindo MD> Cosigner Signature (if applicable): CC: ~ Signed [facility] Work Phone: 1([phone]) 636-603810-15-2023 Progress note Author Fran Cartwright [facility] April 02, 2023 6:53am Note Date/Time April 02, 2023 6 :53am [facility] Medical Records Department [address] [place] [address] [place] [address] Progress Note 04/02/23 0652 MR#: [id number] Acct: [id number] Name: PEDRO PABLO SIERRA Rep #:[id number] : 1950 72 From: Fran Cartwright MD PCP: Dr. Daija Morton MD Status:ADM I N Location: ID3 NP001-1 Progress Note Urine culture returned positive for ESBL E. coli. E. coli is however sensitive to Zosyn in vitro. Cannot be certain whether E. coli will be sensitive in vivo. Zosyn discontinued. Started on Merrem, adjusted for creatinine clearance. 04/02/23 0653 <Electronically signed by Fran Cartwright MD> Fran Cartwright MD Cosigner Signature (if applicable): CC: ~ Signed [facility] Work Phone: 1(346) 854-948810-14-2023 Progress note Author Frankie Galindo [facility] April 01, 2023 10:02am Note Date/Time April 01, 2023 7 :53am [facility] Medical Records Department [address] [place] [address] Progress Note - Hospitalist 04/01/23 0751 MR#: [id number] Acct: [id number] Name: PEDRO PABLO SIERRA Rep #:[id number] : 1950 72 From: Frankie Galindo MD PCP: Dr. Daija Morton MD Status:ADM I N Location: [place] [address] Reason for Visit Reason for Visit: Diagnoses [...] (Auto) 70.2 H, Lymph % (Auto) 15.3 L,[place] % (Auto) 11.0 H, Eos % (Auto) [...] Requested for PT OT eval and social worker psychiatric to assist with discharge planning 3. Chronic [...] documentation, 36minutes. Charges/Coding Visit Charges Inpatient E&M: 06859 Subs Hosp L2 04/01/23 1002 <Electronically signed by Frankie Galindo MD> Cosigner Signature (if applicable): CC: ~ Signed [facility] Work Phone: 1(914) 512-635910-13-2023 Progress note Author Celia Toribio [facility] March 31, 2023 11:24am Note Date/Time March 31, 2023 7 :18am [facility] Medical Records Department [address] [place] [address] Progress Note - Hospitalist 03/31/23711 MR#: [id number] Acct: [id number] Name: PEDRO PABLO SIERRA Rep #:[id number] : 1950 72 From: Celia Toribio MD PCP: Dr. Daija Morton MD Status:ADM I N Location: MS3 NU783-6 Reason for Visit Reason for Visit: Diagnoses [...] 79.2 H, Lymph % (Auto) 9.3 L, [place] % (Auto) 10.5 H, Eos % (Auto) [...] Sl. Cloudy, Urine pH 6.0, Ur Specific Deepwater 1.020, Urine Protein 100 H, Urine Glucose [...] 17:14 EDT Reading Location ID and State: [employer] / [employer] , Service support , Shoulder X-Ray 03/30/23 15:46 IMPRESSION: Mild degenerative disease as described with no acute fracture or subluxation. Electronically Signed: Irish Velásquez MD at 17:15 EDT Reading Location ID and State: [employer] [place] / [place] , Service support , Thoracic Spine CT 03/30/23 15:46 IMPRESSION: Diffuse osteopenia/osteoporosis with minimal compression fracture of T11, exact age indeterminate. No retropulsion or extension to the pedicles visualized. Underlying degenerative disease. No subluxation. Electronically Signed: Irish Velásquez MD at 17:12 EDT Reading Location ID and State: [employer] [place] / [employer] , Service support , Chest X-Ray 03/30/23 16:30 IMPRESSION: No acute cardiac pulmonary disease. Electronically Signed: Irish Velásquez MD at 17:15 EDT Reading Location ID and State: [employer] / [place] , Service support , Physical Exam Narrative [...] documentation, 36minutes. Charges/Coding Visit Charges Inpatient E&M: 53747 Subs Hosp L2 03/31/23 1124 <Electronically signed by Celia Toribio MD> Cosigner Signature (if applicable): CC: ~ Signed [facility] Work Phone: 1(122) 431-649610-12-2023 Discharge summary Author Huber Alvarado [facility] March 30, 2023 8:31pm Note Date/Time March 30, 2023 3 :51pm [facility] Medical Records Department [address] [place] [address] Emergency Department Summary 03/30/23 MR#: [id number] Acct: [id number] Name: PEDRO PABLO SIERRA Rep #:[id number] : 1950 72 From: Huber Alvarado MD PCP: Dr. Daija Morton MD Status:ADM I N Location: [facility] AR313-6 HPI History of Present Illness Chief Complaint: [...] thinks it is just due to pain. [facility] Medical History (Updated 03/30/23 @ 20:31 by [...] 79.2 H Lymph % (Auto) 9.3 L [place] % (Auto) 10.5 H Eos % (Auto) [...] Sl. Cloudy Urine pH 6.0 Ur Specific Deepwater 1.020 Urine Protein 100 H Urine Glucose [...] 17:14 EDT Reading Location ID and State: [employer] [place] / [employer] , Service support , Shoulder X-Ray 03/30/23 15:46 IMPRESSION: Mild degenerative disease as described with no acute fracture or subluxation. Electronically Signed: Irish Velásquez MD at 17:15 EDT Reading Location ID and State: [employer] [place] / [employer] , Service support , Thoracic Spine CT 03/30/23 15:46 IMPRESSION: Diffuse osteopenia/osteoporosis with minimal compression fracture of T11, exact age indeterminate. No retropulsion or extension to the pedicles visualized. Underlying degenerative disease. No subluxation. Electronically Signed: Irish Velásquez MD at 17:12 EDT Reading Location ID and State: [employer] / [employer] , Service support , Chest X-Ray 03/30/23 16:30 IMPRESSION: No acute cardiac pulmonary disease. Electronically Signed: Irish Velásquez MD at 17:15 EDT Reading Location ID and State: [employer] / [employer] , Service support , EKG Initial EKG: Comments: My independent interpretation the patient's EKG shows sinus rhythm with occasional PACs. No PVC. Mild baseline variation and nonspecific changes. No acute ST elevation or depression. WI interval, QRS duration and QTc are normal. Discharge Plan Dx/Rx/DC Orders Clinical Impression: Compression fracture of thoracic vertebra, Multiple falls, Acute UTI, Inabilityto walk Disposition Disposition: [facility] What to do if you have Problems For any increased pain, shortness of breath, bleeding, nausea or vomiting, chestpain, or any unexpected problems, contact your Primary Care Provider. Call [facility] ([phone]) or report to the closest Emergency Room. Call 911 if necessary. 03/30/232030 <Electronically signed by Huber Alvarado MD> Cosigner Signature (if applicable): CC: Dr. Dajia Morton MD ~ Signed [facility] Work Phone: 1(518) 717-981510-12-2023 History and physical note Author Fran [facility]ind[facility] March 30, 2023 8:08pm Note Date/Time March 30, 2023 7 :32pm [facility] Medical Records Department [address] [place] [address] H&P Exam - Hospitalist 03/30/231931 MR#: [id number] Acct: [id number] Name: PEDRO PABLO SIERRA Rep #:[id number] : 1950 72 From: Fran Cartwright MD PCP: Dr. Daija Morton MD Status:ADM I N Location: [facility] SF991-0 HPI - General General Date of Admission: [...] patient has a burning sensation with urination. [facility] Medical History (Updated 03/30/23 @ 20:04 [...] 79.2 H, Lymph % (Auto) 9.3 L, [place] % (Auto) 10.5 H, Eos % (Auto) [...] Sl. Cloudy, Urine pH 6.0, Ur Specific Deepwater 1.020, Urine Protein 100 H, Urine Glucose [...] 17:15 EDT Reading Location ID and State: 063 / [employer] , Service support , Thoracic Spine CT [...] 17:15 EDT Reading Location ID and State: 133 / [employer] , Service support , Assessment & Plan [...] documentation, 70minutes. Charges/Coding Visit Charges Inpatient E&M: 83923 Init Hosp L3 03/30/232007 <Electronically signed by Fran Cartwright MD> Cosigner Signature (if applicable): CC: Dr. Daija Morton MD; Dr. Fran Cartwright MD~ Signed [facility] Work Phone: 1(152) 984-442110-12-2023 Discharge summary Author Huber Alvarado [facility] March 30, 2023 8:31pm Note Date/Time March 30, 2023 3 :51pm [facility] Medical Records Department [address] [place] [address] Emergency Department Summary 03/30/23 MR#: [id number] Acct: [id number] Name: PEDRO PABLO SIERRA Rep #:[id number] : 1950 72 From: Huber Alvarado MD PCP: Dr. Daija Morton MD Status:ADM I N Location: ID3 YU553-4 HPI History of Present Illness Chief Complaint: [...] thinks it is just due to pain. [facility] Medical History (Updated 03/30/23 @ 20:31 by [...] 79.2 H Lymph % (Auto) 9.3 L [place] % (Auto) 10.5 H Eos % (Auto) [...] Sl. Cloudy Urine pH 6.0 Ur Specific Deepwater 1.020 Urine Protein 100 H Urine Glucose [...] 17:14 EDT Reading Location ID and State: [employer] [place] / [employer] , Service support , Shoulder X-Ray 03/30/23 15:46 IMPRESSION: Mild degenerative disease as described with no acute fracture or subluxation. Electronically Signed: Irish Velásquez MD at 17:15 EDT Reading Location ID and State: [employer] , Service support , Thoracic Spine CT 03/30/23 15:46 IMPRESSION: Diffuse osteopenia/osteoporosis with minimal compression fracture of T11, exact age indeterminate. No retropulsion or extension to the pedicles visualized. Underlying degenerative disease. No subluxation. Electronically Signed: Irish Velásquez MD at 17:12 EDT Reading Location ID and State: [employer] , Service support , Chest X-Ray 03/30/23 16:30 IMPRESSION: No acute cardiac pulmonary disease. Electronically Signed: Irish Velásquez MD at 17:15 EDT Reading Location ID and State: [employer] , Service support , EKG Initial EKG: Comments: My independent interpretation the patient's EKG shows sinus rhythm with occasional PACs. No PVC. Mild baseline variation and nonspecific changes. No acute ST elevation or depression. WI interval, QRS duration and QTc are normal. Discharge Plan Dx/Rx/DC Orders Clinical Impression: Compression fracture of thoracic vertebra, Multiple falls, Acute UTI, Inabilityto walk Disposition Disposition: Acute Care Hospital [facility] What to do if you have Problems For any increased pain, shortness of breath, bleeding, nausea or vomiting, chestpain, or any unexpected problems, contact your Primary Care Provider. Call [facility] ([phone]) or report to the closest Emergency Room. Call 911 if necessary. 03/30/232030 <Electronically signed by Huber Alvarado MD> Cosigner Signature (if applicable): CC: Dr. Daija Morton MD ~ Signed [facility] Work Phone: 1(524) 322-114909-08-2023 Miscellaneous Notes* Telephone Encounter - Shana Debby MCKEON - 02/24/2023 2:56 PM EDT Patient has [...] you. Debby Saldana LPN documented in this encounterJoint Township District Memorial Hospital08-11-2023 Miscellaneous Notes* Telephone Encounter - Bing [...] you. Bing Delgado RN documented in this encounterJoint Township District Memorial Hospital07-10-2023 History of Present illness Narrative* Ryan [...] cessation. Germaine May MD documented in this encounterJoint Township District Memorial Hospital05-07-2023 Hospital Discharge instructions Patient Education 10/22/2022 [...] chest, arm, back, neck or jaw pain [id number] [employer]. [address] [place] [address], [place] [address]. All rights reserved. This information is not intended as a substitute for professional medical care. Always follow yourhealthcare professional's instructions. Follow Up Care 10/22/2022 19:49:21 With:DAIJA MORTON MD Address: [address] [place] [address]- When:2-4 days [facility] Holliday 05-06-2023 Note Discharge Instructions Thank you for allowing [facility] to assist you with your healthcare needs. The following is importantdischarge information regarding your hospital visit. Diagnosis from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 twice in October 2013, s/p left femoral endarterectomy with patch, US guided access RCFA, L profundaplasty, RUFUS recanalization & stenting, CRISPIN stenting on 10/23/13 for aorto-occlusive critical limb ischemia - S/p 11/12-11/19/13 [facility] Vascular Surgery for aortoiliac thrombosis (BLE [...] of this encounter (statuses as of 10/07/2021) [facility]04-[facility]2020 History of Past illness Narrative* Problem [...] Neurotoin BID at home Patient started on [place] postoperatively, pain controlled at time of discharge. Ischemia of extremity 10/14/2013 02/10/2014 Overview: - admitted to [facility] vascular surgery twice in October 2013, s/p left femoral endarterectomy with patch, US guided access RCFA, L profundaplasty, RUFUS recanalization & stenting, CRISPIN stenting on 10/23/13 for aorto-occlusive critical limb ischemia - S/p 11/12-11/19/13 [facility] Vascular Surgery for aortoiliac thrombosis (BLE [...] of this encounter (statuses as of 10/07/2021) [facility]04-[facility]2020 History of Past illness Narrative* Problem [...] Neurotoin BID at home Patient started on [place] postoperatively, pain controlled at time of discharge. Ischemia of extremity 10/14/2013 02/10/2014 Overview: - admitted to [facility] vascular surgery twice in October 2013, s/p left femoral endarterectomy with patch, US guided access RCFA, L profundaplasty, RUFUS recanalization & stenting, CRISPIN stenting on 10/23/13 for aorto-occlusive critical limb ischemia - S/p 11/12-11/19/13 [facility] Vascular Surgery for aortoiliac thrombosis (BLE [...] of this encounter (statuses as of 10/08/2021) [facility]04[facility]2020 History of Past illness Narrative* Problem [...] Neurotoin BID at home Patient started on [place] postoperatively, pain controlled at time of discharge. Ischemia of extremity 10/14/2013 02/10/2014 Overview: - admitted to [facility] vascular surgery twice in October 2013, s/p left femoral endarterectomy with patch, US guided access RCFA, L profundaplasty, RUFUS recanalization & stenting, CRISPIN stenting on 10/23/13 for aorto-occlusive critical limb ischemia - S/p 11/12-11/19/13 [facility] Vascular Surgery for aortoiliac thrombosis (BLE [...] of this encounter (statuses as of 10/13/2021) [facility]04-[facility]2020 History of Past illness Narrative* Problem [...] Neurotoin BID at home Patient started on [place] postoperatively, pain controlled at time of discharge. Ischemia of extremity 10/14/2013 02/10/2014 Overview: - admitted to [facility] vascular surgery twice in October 2013, s/p left femoral endarterectomy with patch, US guided access RCFA, L profundaplasty, RUFUS recanalization & stenting, CRISPIN stenting on 10/23/13 for aorto-occlusive critical limb ischemia - S/p 11/12-11/19/13 [facility] Vascular Surgery for aortoiliac thrombosis (BLE [...] of this encounter (statuses as of 10/13/2021) [facility]04-[facility]2020 History of Past illness Narrative* Problem [...] Neurotoin BID at home Patient started on [place] postoperatively, pain controlled at time of discharge. Ischemia of extremity 10/14/2013 02/10/2014 Overview: - admitted to [facility] vascular surgery twice in October 2013, s/p left femoral endarterectomy with patch, US guided access RCFA, L profundaplasty, RUFUS recanalization & stenting, CRISPIN stenting on 10/23/13 for aorto-occlusive critical limb ischemia - S/p 11/12-11/19/13 [facility] Vascular Surgery for aortoiliac thrombosis (BLE [...] of this encounter (statuses as of 10/14/2021) [facility]04-[facility]2020 History of Past illness Narrative* Problem [...] Neurotoin BID at home Patient started on [place] postoperatively, pain controlled at time of discharge. Ischemia of extremity 10/14/2013 02/10/2014 Overview: - admitted to [facility] vascular surgery twice in October 2013, s/p left femoral endarterectomy with patch, US guided access RCFA, L profundaplasty, RUFUS recanalization & stenting, CRISPIN stenting on 10/23/13 for aorto-occlusive critical limb ischemia - S/p 11/12-11/19/13 [facility] Vascular Surgery for aortoiliac thrombosis (BLE [...] of this encounter (statuses as of 10/18/2021) [facility]04-[facility]2020 History of Past illness Narrative* Problem [...] Neurotoin BID at home Patient started on [place] postoperatively, pain controlled at time of discharge. Ischemia of extremity 10/14/2013 02/10/2014 Overview: - admitted to [facility] vascular surgery twice in October 2013, [...] of this encounter (statuses as of 10/21/2021) [facility]04[facility]2020 History of Past illness Narrative* Problem [...] Neurotoin BID at home Patient started on [place] postoperatively, pain controlled at time of discharge. Ischemia of extremity 10/14/2013 02/10/2014 Overview: - admitted to [facility] vascular surgery twice in October 2013, [...] of this encounter (statuses as of 10/21/2021) [facility]04[facility]2020 History of Past illness Narrative* Problem [...] Neurotoin BID at home Patient started on [place] postoperatively, pain controlled at time of discharge. Ischemia of extremity 10/14/2013 02/10/2014 Overview: - admitted to [facility] vascular surgery twice in October 2013, [...] of this encounter (statuses as of 10/22/2021) [facility]04[facility]2020 History of Past illness Narrative* Problem [...] Neurotoin BID at home Patient started on [place] postoperatively, pain controlled at time of discharge. Ischemia of extremity 10/14/2013 02/10/2014 Overview: - admitted to [facility] vascular surgery twice in October 2013, s/p left femoral endarterectomy with patch, US guided access RCFA, L profundaplasty, RUFUS recanalization & stenting, CRISPIN stenting on 10/23/13 for aorto-occlusive critical limb ischemia - S/p 11/12-11/19/13 [facility] Vascular Surgery for aortoiliac thrombosis (BLE [...] of this encounter (statuses as of 10/22/2021) [facility]04[facility]2020 History of Past illness Narrative* Problem [...] Neurotoin BID at home Patient started on [place] postoperatively, pain controlled at time of discharge. Ischemia of extremity 10/14/2013 02/10/2014 Overview: - admitted to [facility] vascular surgery twice in October 2013, [...] of this encounter (statuses as of 10/22/2021) [facility]04[facility]2020 History of Past illness Narrative* Problem [...] Neurotoin BID at home Patient started on [place] postoperatively, pain controlled at time of discharge. Ischemia of extremity 10/14/2013 02/10/2014 Overview: - admitted to [facility] vascular surgery twice in October 2013, s/p left femoral endarterectomy with patch, US guided access RCFA, L profundaplasty, RUFUS recanalization & stenting, CRISPIN stenting on 10/23/13 for aorto-occlusive critical limb ischemia - S/p 11/12-11/19/13 [facility] Vascular Surgery for aortoiliac thrombosis (BLE [...] of this encounter (statuses as of 10/27/2021) [facility]04-[facility]2020 History of Past illness Narrative* Problem [...] Neurotoin BID at home Patient started on [place] postoperatively, pain controlled at time of discharge. Ischemia of extremity 10/14/2013 02/10/2014 Overview: - admitted to [facility] vascular surgery twice in October 2013, s/p left femoral endarterectomy with patch, US guided access RCFA, L profundaplasty, RUFUS recanalization & stenting, CRISPIN stenting on 10/23/13 for aorto-occlusive critical limb ischemia - S/p 11/12-11/19/13 [facility] Vascular Surgery for aortoiliac thrombosis (BLE [...] of this encounter (statuses as of 11/08/2021) [facility]04[facility]2020 History of Past illness Narrative* Problem [...] Neurotoin BID at home Patient started on [place] postoperatively, pain controlled at time of discharge. Ischemia of extremity 10/14/2013 02/10/2014 Overview: - admitted to [facility] vascular surgery twice in October 2013, s/p left femoral endarterectomy with patch, US guided access RCFA, L profundaplasty, RUFUS recanalization & stenting, CRISPIN stenting on 10/23/13 for aorto-occlusive critical limb ischemia - S/p 11/12-11/19/13 [facility] Vascular Surgery for aortoiliac thrombosis (BLE [...] of this encounter (statuses as of 11/08/2021) [facility]04[facility]2020 History of Past illness Narrative* Problem [...] Neurotoin BID at home Patient started on [place] postoperatively, pain controlled at time of discharge. Ischemia of extremity 10/14/2013 02/10/2014 Overview: - admitted to [facility] vascular surgery twice in October 2013, [...] of this encounter (statuses as of 11/11/2021) [facility]2020 History of Past illness Narrative* Problem [...] Neurotoin BID at home Patient started on [place] postoperatively, pain controlled at time of discharge. Ischemia of extremity 10/14/2013 02/10/2014 Overview: - admitted to [facility] vascular surgery twice in October 2013, s/p left femoral endarterectomy with patch, US guided access RCFA, L profundaplasty, RUFUS recanalization & stenting, CRISPIN stenting on 10/23/13 for aorto-occlusive critical limb ischemia - S/p 11/12-11/19/13 [facility] Vascular Surgery for aortoiliac thrombosis (BLE [...] of this encounter (statuses as of 11/12/2021) [facility]2020 History of Past illness Narrative* Problem [...] Neurotoin BID at home Patient started on [place] postoperatively, pain controlled at time of discharge. Ischemia of extremity 10/14/2013 02/10/2014 Overview: - admitted to [facility] vascular surgery twice in October 2013, [...] of this encounter (statuses as of 11/16/2021) [facility]2020 History of Past illness Narrative* Problem [...] Neurotoin BID at home Patient started on [place] postoperatively, pain controlled at time of discharge. Ischemia of extremity 10/14/2013 02/10/2014 Overview: - admitted to [facility] vascular surgery twice in October 2013, s/p left femoral endarterectomy with patch, US guided access RCFA, L profundaplasty, RUFUS recanalization & stenting, CRISPIN stenting on 10/23/13 for aorto-occlusive critical limb ischemia - S/p 11/12-11/19/13 [facility] Vascular Surgery for aortoiliac thrombosis (BLE [...] of this encounter (statuses as of 11/17/2021) [facility] History of Past illness Narrative* Problem [...] Neurotoin BID at home Patient started on [place] postoperatively, pain controlled at time of discharge. Ischemia of extremity 10/14/2013 02/10/2014 Overview: - admitted to [facility] vascular surgery twice in October 2013, s/p left femoral endarterectomy with patch, US guided access RCFA, L profundaplasty, RUFUS recanalization & stenting, CRSIPIN stenting on 10/23/13 for aorto-occlusive critical [...] of this encounter (statuses as of 11/17/2021) [facility]2020 History of Past illness Narrative* Problem [...] Neurotoin BID at home Patient started on [place] postoperatively, pain controlled at time of discharge. Ischemia of extremity 10/14/2013 02/10/2014 Overview: - admitted to [facility] vascular surgery twice in October 2013, s/p left femoral endarterectomy with patch, US guided access RCFA, L profundaplasty, RUFUS recanalization & stenting, CRISPIN stenting on 10/23/13 for aorto-occlusive critical limb ischemia - S/p 11/12-11/19/13 [facility] Vascular Surgery for aortoiliac thrombosis (BLE [...] of this encounter (statuses as of 11/18/2021) [facility] History of Past illness Narrative* Problem [...] Neurotoin BID at home Patient started on [place] postoperatively, pain controlled at time of discharge. Ischemia of extremity 10/14/2013 02/10/2014 Overview: - admitted to [facility] vascular surgery twice in October 2013, [...] of this encounter (statuses as of 11/19/2021) [facility]2020 History of Past illness Narrative* Problem [...] Neurotoin BID at home Patient started on [place] postoperatively, pain controlled at time of discharge. Ischemia of extremity 10/14/2013 02/10/2014 Overview: - admitted to [facility] vascular surgery twice in October 2013, [...] of this encounter (statuses as of 11/19/2021) [facility]2020 History of Past illness Narrative* Problem [...] Neurotoin BID at home Patient started on [place] postoperatively, pain controlled at time of discharge. Ischemia of extremity 10/14/2013 02/10/2014 Overview: - admitted to [facility] vascular surgery twice in October 2013, [...] of this encounter (statuses as of 11/26/2021) [facility]2020 History of Past illness Narrative* Problem [...] Neurotoin BID at home Patient started on [place] postoperatively, pain controlled at time of discharge. Ischemia of extremity 10/14/2013 02/10/2014 Overview: - admitted to [facility] vascular surgery twice in October 2013, s/p left femoral endarterectomy with patch, US guided access RCFA, L profundaplasty, RUFUS recanalization & stenting, CRISPIN stenting on 10/23/13 for aorto-occlusive critical limb ischemia - S/p 11/12-11/19/13 [facility] Vascular Surgery for aortoiliac thrombosis (BLE [...] of this encounter (statuses as of 11/30/2021) [facility]2020 History of Past illness Narrative* Problem [...] Neurotoin BID at home Patient started on [place] postoperatively, pain controlled at time of discharge. Ischemia of extremity 10/14/2013 02/10/2014 Overview: - admitted to [facility] vascular surgery twice in October 2013, [...] of this encounter (statuses as of 12/03/2021) [facility] History of Past illness Narrative* Problem [...] Neurotoin BID at home Patient started on [place] postoperatively, pain controlled at time of discharge. Ischemia of extremity 10/14/2013 02/10/2014 Overview: - admitted to [facility] vascular surgery twice in October 2013, s/p left femoral endarterectomy with patch, US guided access RCFA, L profundaplasty, RUFUS recanalization & stenting, CRISPIN stenting on 10/23/13 for aorto-occlusive critical limb ischemia - S/p 11/12-11/19/13 [facility] Vascular Surgery for aortoiliac thrombosis (BLE [...] of this encounter (statuses as of 12/07/2021) [facility] History of Past illness Narrative* Problem [...] Neurotoin BID at home Patient started on [place] postoperatively, pain controlled at time of discharge. Ischemia of extremity 10/14/2013 02/10/2014 Overview: - admitted to [facility] vascular surgery twice in October 2013, [...] of this encounter (statuses as of 01/14/2022) [facility] History of Past illness Narrative* Problem [...] Neurotoin BID at home Patient started on [place] postoperatively, pain controlled at time of discharge. Ischemia of extremity 10/14/2013 02/10/2014 Overview: - admitted to [facility] vascular surgery twice in October 2013, s/p left femoral endarterectomy with patch, US guided access RCFA, L profundaplasty, RUFUS recanalization & stenting, CRISPIN stenting on 10/23/13 for aorto-occlusive critical limb ischemia - S/p 11/12-11/19/13 [facility] Vascular Surgery for aortoiliac thrombosis (BLE [...] of this encounter (statuses as of 01/14/2022) [facility] History of Past illness Narrative* Problem [...] Neurotoin BID at home Patient started on [place] postoperatively, pain controlled at time of discharge. Ischemia of extremity 10/14/2013 02/10/2014 Overview: - admitted to [facility] vascular surgery twice in October 2013, [...] of this encounter (statuses as of 01/25/2022) [facility]04-24-2020 History of Past illness Narrative* Problem [...] Neurotoin BID at home Patient started on [place] postoperatively, pain controlled at time of discharge. Ischemia of extremity 10/14/2013 02/10/2014 Overview: - admitted to [facility] vascular surgery twice in October 2013, s/p left femoral endarterectomy with patch, US guided access RCFA, L profundaplasty, RUFUS recanalization & stenting, CRISPIN stenting on 10/23/13 for aorto-occlusive critical limb ischemia - S/p 11/12-11/19/13 [facility] Vascular Surgery for aortoiliac thrombosis (BLE [...] of this encounter (statuses as of 01/28/2022) [facility]04-24[facility]2020 History of Past illness Narrative* Problem [...] Neurotoin BID at home Patient started on [place] postoperatively, pain controlled at time of discharge. Ischemia of extremity 10/14/2013 02/10/2014 Overview: - admitted to [facility] vascular surgery twice in October 2013, [...] of this encounter (statuses as of 01/31/2022) [facility]04-[facility]2020 History of Past illness Narrative* Problem [...] Neurotoin BID at home Patient started on [place] postoperatively, pain controlled at time of discharge. Ischemia of extremity 10/14/2013 02/10/2014 Overview: - admitted to [facility] vascular surgery twice in October 2013, s/p left femoral endarterectomy with patch, US guided access RCFA, L profundaplasty, RUFUS recanalization & stenting, CRISPIN stenting on 10/23/13 for aorto-occlusive critical limb ischemia - S/p 11/12-11/19/13 [facility] Vascular Surgery for aortoiliac thrombosis (BLE [...] of this encounter (statuses as of 01/31/2022) [facility]04-[facility]2020 History of Past illness Narrative* Problem [...] Neurotoin BID at home Patient started on [place] postoperatively, pain controlled at time of discharge. Ischemia of extremity 10/14/2013 02/10/2014 Overview: - admitted to [facility] vascular surgery twice in October 2013, s/p left femoral endarterectomy with patch, US guided access RCFA, L profundaplasty, RUFUS recanalization & stenting, CRISPIN stenting on 10/23/13 for aorto-occlusive critical limb ischemia - S/p 11/12-11/19/13 [facility] Vascular Surgery for aortoiliac thrombosis (BLE [...] of this encounter (statuses as of 01/31/2022) [facility]04-[facility]2020 History of Past illness Narrative* Problem [...] Neurotoin BID at home Patient started on [place] postoperatively, pain controlled at time of discharge. Ischemia of extremity 10/14/2013 02/10/2014 Overview: - admitted to [facility] vascular surgery twice in October 2013, s/p left femoral endarterectomy with patch, US guided access RCFA, L profundaplasty, RUFUS recanalization & stenting, CRISPIN stenting on 10/23/13 for aorto-occlusive critical limb ischemia - S/p 11/12-11/19/13 [facility] Vascular Surgery for aortoiliac thrombosis (BLE [...] of this encounter (statuses as of 02/03/2022) [facility]04-[facility]2020 History of Past illness Narrative* Problem [...] Neurotoin BID at home Patient started on [place] postoperatively, pain controlled at time of discharge. Ischemia of extremity 10/14/2013 02/10/2014 Overview: - admitted to [facility] vascular surgery twice in October 2013, s/p left femoral endarterectomy with patch, US guided access RCFA, L profundaplasty, RUFUS recanalization & stenting, CRISPIN stenting on 10/23/13 for aorto-occlusive critical limb ischemia - S/p 11/12-11/19/13 [facility] Vascular Surgery for aortoiliac thrombosis (BLE [...] of this encounter (statuses as of 02/24/2022) [facility]04-[facility] History of Past illness Narrative* Problem [...] Neurotoin BID at home Patient started on [place] postoperatively, pain controlled at time of discharge. Ischemia of extremity 10/14/2013 02/10/2014 Overview: - admitted to [facility] vascular surgery twice in October 2013, s/p left femoral endarterectomy with patch, US guided access RCFA, L profundaplasty, RUFUS recanalization & stenting, CRISPIN stenting on 10/23/13 for aorto-occlusive critical limb ischemia - S/p 11/12-11/19/13 [facility] Vascular Surgery for aortoiliac thrombosis (BLE [...] of this encounter (statuses as of 02/24/2022) [facility]04-[facility]2020 History of Past illness Narrative* Problem [...] Neurotoin BID at home Patient started on [place] postoperatively, pain controlled at time of discharge. Ischemia of extremity 10/14/2013 02/10/2014 Overview: - admitted to [facility] vascular surgery twice in October 2013, s/p left femoral endarterectomy with patch, US guided access RCFA, L profundaplasty, RUFUS recanalization & stenting, CRISPIN stenting on 10/23/13 for aorto-occlusive critical limb ischemia - S/p 11/12-11/19/13 [facility] Vascular Surgery for aortoiliac thrombosis (BLE [...] of this encounter (statuses as of 03/02/2022) [facility]04[facility]2020 History of Past illness Narrative* Problem [...] Neurotoin BID at home Patient started on [place] postoperatively, pain controlled at time of discharge. [...] of this encounter (statuses as of 03/10/2022) [facility]04[facility]2020 History of Past illness Narrative* Problem [...] Neurotoin BID at home Patient started on [place] postoperatively, pain controlled at time of discharge. Ischemia of extremity 10/14/2013 02/10/2014 Overview: - admitted to [facility] vascular surgery twice in October 2013, [...] of this encounter (statuses as of 03/10/2022) [facility]2020 History of Past illness Narrative* Problem [...] Neurotoin BID at home Patient started on [place] postoperatively, pain controlled at time of discharge. Ischemia of extremity 10/14/2013 02/10/2014 Overview: - admitted to [facility] vascular surgery twice in October 2013, s/p left femoral endarterectomy with patch, US guided access RCFA, L profundaplasty, RUFUS recanalization & stenting, CRISPIN stenting on 10/23/13 for aorto-occlusive critical limb ischemia - S/p 11/12-11/19/13 [facility] Vascular Surgery for aortoiliac thrombosis (BLE [...] of this encounter (statuses as of 03/11/2022) [facility]2020 History of Past illness Narrative* Problem [...] Neurotoin BID at home Patient started on [place] postoperatively, pain controlled at time of discharge. Ischemia of extremity 10/14/2013 02/10/2014 Overview: - admitted to [facility] vascular surgery twice in October 2013, s/p left femoral endarterectomy with patch, US guided access RCFA, L profundaplasty, RUFUS recanalization & stenting, CRISPIN stenting on 10/23/13 for aorto-occlusive critical limb ischemia - S/p 11/12-11/19/13 [facility] Vascular Surgery for aortoiliac thrombosis (BLE [...] of this encounter (statuses as of 03/11/2022) [facility]2020 History of Past illness Narrative* Problem [...] Neurotoin BID at home Patient started on [place] postoperatively, pain controlled at time of discharge. Ischemia of extremity 10/14/2013 02/10/2014 Overview: - admitted to [facility] vascular surgery twice in October 2013, s/p left femoral endarterectomy with patch, US guided access RCFA, L profundaplasty, RUFUS recanalization & stenting, CRISPIN stenting on 10/23/13 for aorto-occlusive critical limb ischemia - S/p 11/12-11/19/13 [facility] Vascular Surgery for aortoiliac thrombosis (BLE [...] of this encounter (statuses as of 03/18/2022) [facility]04[facility]2020 History of Past illness Narrative* Problem [...] Neurotoin BID at home Patient started on [place] postoperatively, pain controlled at time of discharge. Ischemia of extremity 10/14/2013 02/10/2014 Overview: - admitted to [facility] vascular surgery twice in October 2013, s/p left femoral endarterectomy with patch, US guided access RCFA, L profundaplasty, RUFUS recanalization & stenting, CRISPIN stenting on 10/23/13 for aorto-occlusive critical limb ischemia - S/p 11/12-11/19/13 [facility] Vascular Surgery for aortoiliac thrombosis (BLE [...] of this encounter (statuses as of 03/24/2022) [facility]04[facility]2020 History of Past illness Narrative* Problem [...] Neurotoin BID at home Patient started on [place] postoperatively, pain controlled at time of discharge. Ischemia of extremity 10/14/2013 02/10/2014 Overview: - admitted to [facility] vascular surgery twice in October 2013, s/p left femoral endarterectomy with patch, US guided access RCFA, L profundaplasty, RUFUS recanalization & stenting, CRISPIN stenting on 10/23/13 for aorto-occlusive critical limb ischemia - S/p 11/12-11/19/13 [facility] Vascular Surgery for aortoiliac thrombosis (BLE [...] of this encounter (statuses as of 04/01/2022) [facility]04[facility]2020 History of Past illness Narrative* Problem [...] Neurotoin BID at home Patient started on [place] postoperatively, pain controlled at time of discharge. Ischemia of extremity 10/14/2013 02/10/2014 Overview: - admitted to [facility] vascular surgery twice in October 2013, s/p left femoral endarterectomy with patch, US guided access RCFA, L profundaplasty, RUFUS recanalization & stenting, CRISPIN stenting on 10/23/13 for aorto-occlusive critical limb ischemia - S/p 11/12-11/19/13 [facility] Vascular Surgery for aortoiliac thrombosis (BLE [...] of this encounter (statuses as of 06/19/2022) [facility]04[facility]2020 History of Past illness Narrative* Problem [...] Neurotoin BID at home Patient started on [place] postoperatively, pain controlled at time of discharge. Ischemia of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 of INR 2 to 3 Encounter for therapeutic drug monitoring PVD (peripheral vascular disease) ([facility]) Peripheral vascular disease, unspecified Encounter to establish care Other reasons for seeking consultation GI bleeding- Primary Acute posthemorrhagic anemia Lupus anticoagulant disorder ([facility]) Primary hypercoagulable state Dysuria- Primary GI bleeding Acute posthemorrhagic anemia Lupus anticoagulant disorder ([facility]) Primary hypercoagulable state PVD (peripheral vascular disease) ([facility]) Peripheral vascular disease, unspecified IBD (inflammatory bowel disease) Other and unspecified noninfectious gastroenteritis and colitis Blurring of vision Other specified visual disturbances Anticoagulation goal of INR 2 to 3 Encounter for therapeutic drug monitoring Hypertension Unspecified essential hypertension s/p left femoral endarterectomy/aortoiliac stenting 10/2013 Peripheral vascular disease, unspecified Elevated glucose Other abnormal glucose COPD (chronic obstructive pulmonary disease) ([facility]) Chronic airway obstruction, not elsewhere classified Back pain Backache, unspecified PVD (peripheral vascular disease) ([facility])- Primary Peripheral vascular disease, unspecified COPD (chronic obstructive pulmonary disease) ([facility]) Chronic airway obstruction, not elsewhere classified Anticoagulation goal of INR 2 to 3 Encounter for therapeutic drug monitoring Anemia due to acute blood loss Acute posthemorrhagic anemia Hypertension Unspecified essential hypertension Hyperlipidemia Other and unspecified hyperlipidemia Tobacco use disorder Ulcerative colitis (HCC)- Primary Ulcerative colitis, unspecified PVD (peripheral vascular disease) ([facility]) Peripheral vascular disease, unspecified Lupus anticoagulant disorder ([facility]) Primary hypercoagulable state Tobacco use disorder Melena Blood in stool COPD (chronic obstructive pulmonary disease) ([facility]) Chronic airway obstruction, not elsewhere classified Dark [...] Coronary atherosclerosis of unspecified type of vessel, [place] or graft PVD (peripheral vascular disease) (HCC) Peripheral vascular disease, unspecified Melena Blood in stool Depression Depressive disorder, not elsewhere classified Anticoagulation goal of INR 2 to 3- Primary Encounter for therapeutic drug monitoring PVD (peripheral vascular disease) ([facility]) Peripheral vascular disease, unspecified Hospital discharge follow-up [...] Preoperative examination, unspecified PVD (peripheral vascular disease) ([facility]) Peripheral vascular disease, unspecified Coronary artery disease, angina presence unspecified, unspecified vessel or lesion type, unspecified whether sho[place] or transplanted heart Mixed hyperlipidemia Essential hypertension [...] bronchitis without exacerbation [facility]* Diagnosis COPD (chronic obstructive pulmonary [...] Primary hypercoagulable state PVD (peripheral vascular disease) ([facility]) Peripheral vascular disease, unspecified IBD (inflammatory bowel disease) Other and unspecified noninfectious gastroenteritis and colitis Blurring of vision Other specified visual disturbances Anticoagulation goal of INR 2 to 3 Encounter for therapeutic drug monitoring Hypertension Unspecified essential hypertension s/p left femoral endarterectomy/aortoiliac stenting 10/2013 Peripheral vascular disease, unspecified Elevated glucose Other abnormal glucose COPD (chronic obstructive pulmonary disease) ([facility]) Chronic airway obstruction, not elsewhere classified Back pain Backache, unspecified PVD (peripheral vascular disease) ([facility])- Primary Peripheral vascular disease, unspecified COPD (chronic obstructive pulmonary disease) ([facility]) Chronic airway obstruction, not elsewhere classified Anticoagulation goal of INR 2 to 3 Encounter for therapeutic drug monitoring Anemia due to acute blood loss Acute posthemorrhagic anemia Hypertension Unspecified essential hypertension Hyperlipidemia Other and unspecified hyperlipidemia Tobacco use disorder Ulcerative colitis (HCC)- Primary Ulcerative colitis, unspecified PVD (peripheral vascular disease) ([facility]) Peripheral vascular disease, unspecified Lupus anticoagulant disorder [...] elsewhere classified COPD (chronic obstructive pulmonary disease) ([facility])- Primary Chronic airway obstruction, not elsewhere classified [...] Coronary atherosclerosis of unspecified type of vessel, [place] or graft PVD (peripheral vascular disease) (HCC) [...] hypercoagulable state Pulmonary emphysema, unspecified emphysema type ([facility]) Need for vaccination Need for prophylactic vaccination and inoculation against unspecified single disease Pre-operative examination- Primary Preoperative examination, unspecified PVD (peripheral vascular disease) ([facility]) Peripheral vascular disease, unspecified Coronary artery disease, angina presence unspecified, unspecified vessel or lesion type, unspecified whether sho[place] or transplanted heart Mixed hyperlipidemia Essential hypertension [...] Pain in limb [facility] Diagnosis COPD (chronic obstructive pulmonary disease) ([facility])- Primary Chronic airway obstruction, not elsewhere classified Urinary retention with incomplete bladder emptying Incomplete bladder emptying Anticoagulation goal of INR 2 to 3 Encounter for therapeutic drug monitoring PVD (peripheral vascular disease) (HCC) Peripheral vascular disease, unspecified Encounter to establish care Other reasons for seeking consultation GI bleeding- Primary Acute posthemorrhagic anemia Lupus anticoagulant disorder ([facility]) Primary hypercoagulable state Dysuria- Primary GI bleeding Acute posthemorrhagic anemia Lupus anticoagulant disorder ([facility]) Primary hypercoagulable state PVD (peripheral vascular disease) ([facility]) Peripheral vascular disease, unspecified IBD (inflammatory bowel disease) Other and unspecified noninfectious gastroenteritis and colitis Blurring of vision Other specified visual disturbances Anticoagulation goal of INR 2 to 3 Encounter for therapeutic drug monitoring Hypertension Unspecified essential hypertension s/p left femoral endarterectomy/aortoiliac stenting 10/2013 Peripheral vascular disease, unspecified Elevated glucose Other abnormal glucose COPD (chronic obstructive pulmonary disease) ([facility]) Chronic airway obstruction, not elsewhere classified Back pain Backache, unspecified PVD (peripheral vascular disease) ([facility])- Primary Peripheral vascular disease, unspecified COPD (chronic obstructive pulmonary disease) ([facility]) Chronic airway obstruction, not elsewhere classified Anticoagulation goal of INR 2 to 3 Encounter for therapeutic drug monitoring Anemia due to acute blood loss Acute posthemorrhagic anemia Hypertension Unspecified essential hypertension Hyperlipidemia Other and unspecified hyperlipidemia Tobacco use disorder Ulcerative colitis ([facility])- Primary Ulcerative colitis, unspecified PVD (peripheral vascular disease) ([facility]) Peripheral vascular disease, unspecified Lupus anticoagulant disorder ([facility]) Primary hypercoagulable state Tobacco use disorder Melena Blood in stool COPD (chronic obstructive pulmonary disease) ([facility]) Chronic airway obstruction, not elsewhere classified Dark urine Other nonspecific finding on examination of urine Hospital discharge follow-up- Primary Other follow-up examination Hypertension Unspecified essential hypertension Hematoma, postoperative Hematoma complicating a procedure s/p left femoral endarterectomy/aortoiliac stenting 10/2013 Peripheral vascular disease, unspecified COPD (chronic obstructive pulmonary disease) ([facility]) Chronic airway obstruction, not elsewhere classified Melena Blood in stool Depression Depressive disorder, not elsewhere classified COPD (chronic obstructive pulmonary disease) ([facility])- Primary Chronic airway obstruction, not elsewhere classified [...] Coronary atherosclerosis of unspecified type of vessel, [place] or graft PVD (peripheral vascular disease) ([facility]) Peripheral vascular disease, unspecified Melena Blood in [...] unspecified vessel or lesion type, unspecified whether [place] or transplanted heart Mixed hyperlipidemia Essential hypertension [...] hematuria, site unspecified [facility] Diagnosis Onset Date Resolution Status Admit Date Acute diarrhea acute August 25, 2024 6:12pm Debility acute August 25 6:12pm Weakness acute August 25 6:12pm 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 August [id number] 6:12pm [facility] Work Phone: Evaluation note* Diagnosis COPD [...] abnormal glucose COPD (chronic obstructive pulmonary disease) ([facility]) Chronic airway obstruction, not elsewhere classified Back pain Backache, unspecified PVD (peripheral vascular disease)- Primary Peripheral vascular disease, unspecified COPD (chronic obstructive pulmonary disease) ([facility]) Chronic airway obstruction, not elsewhere classified Anticoagulation [...] in stool COPD (chronic obstructive pulmonary disease) ([facility]) Chronic airway obstruction, not elsewhere classified Dark urine Other nonspecific finding on examination of urine Hospital discharge follow-up- Primary Other follow-up examination Hypertension Unspecified essential hypertension Hematoma, postoperative Hematoma complicating a procedure s/p left femoral endarterectomy/aortoiliac stenting 10/2013 Peripheral vascular disease, unspecified COPD (chronic obstructive pulmonary disease) ([facility]) Chronic airway obstruction, not elsewhere classified Melena Blood in stool Depression Depressive disorder, not elsewhere classified COPD (chronic obstructive pulmonary disease) ([facility])- Primary Chronic airway obstruction, not elsewhere classified [...] Coronary atherosclerosis of unspecified type of vessel, shoalwater or graft PVD (peripheral vascular disease) Peripheral [...] unspecified vessel or lesion type, unspecified whether shoalwater or transplanted heart Mixed hyperlipidemia Essential hypertension [...] malaise and fatigue [facility] Diagnosis COPD (chronic obstructive pulmonary [...] abnormal glucose COPD (chronic obstructive pulmonary disease) ([facility]) Chronic airway obstruction, not elsewhere classified Back pain Backache, unspecified PVD (peripheral vascular disease)- Primary Peripheral vascular disease, unspecified COPD (chronic obstructive pulmonary disease) ([facility]) Chronic airway obstruction, not elsewhere classified Anticoagulation goal of INR 2 to 3 Encounter for therapeutic drug monitoring Anemia due to acute blood loss Acute posthemorrhagic anemia Hypertension Unspecified essential hypertension Hyperlipidemia Other and unspecified hyperlipidemia Tobacco use disorder Ulcerative colitis ([facility])- Primary Ulcerative colitis, unspecified PVD (peripheral vascular disease) Peripheral vascular disease, unspecified Lupus anticoagulant disorder ([facility]) Primary hypercoagulable state Tobacco use disorder Melena Blood in stool COPD (chronic obstructive pulmonary disease) ([facility]) Chronic airway obstruction, not elsewhere classified Dark urine Other nonspecific finding on examination of urine Hospital discharge follow-up- Primary Other follow-up examination Hypertension Unspecified essential hypertension Hematoma, postoperative Hematoma complicating a procedure s/p left femoral endarterectomy/aortoiliac stenting 10/2013 Peripheral vascular disease, unspecified COPD (chronic obstructive pulmonary disease) ([facility]) Chronic airway obstruction, not elsewhere classified Melena Blood in stool Depression Depressive disorder, not elsewhere classified COPD (chronic obstructive pulmonary disease) ([facility])- Primary Chronic airway obstruction, not elsewhere classified [...] Coronary atherosclerosis of unspecified type of vessel, shoalwater or graft PVD (peripheral vascular disease) Peripheral [...] unspecified vessel or lesion type, unspecified whether shoalwater or transplanted heart Mixed hyperlipidemia Essential hypertension [...] Educational circumstance Wheezing documented [facility] Diagnosis COPD (chronic obstructive pulmonary [...] Coronary atherosclerosis of unspecified type of vessel, shoalwater or graft PVD (peripheral vascular disease) Peripheral [...] unspecified vessel or lesion type, unspecified whether shoalwater or transplanted heart Mixed hyperlipidemia Essential hypertension [...] on supplemental oxygen [facility] Diagnosis COPD (chronic obstructive pulmonary disease) ([facility])- Primary Chronic airway obstruction, not elsewhere classified [...] Coronary atherosclerosis of unspecified type of vessel, shoalwater or graft PVD (peripheral vascular disease) Peripheral [...] unspecified vessel or lesion type, unspecified whether shoalwater or transplanted heart Mixed hyperlipidemia Essential hypertension [...] Shortness of breath [facility] Diagnosis COPD (chronic obstructive pulmonary [...] elsewhere classified COPD (chronic obstructive pulmonary disease) ([facility])- Primary Chronic airway obstruction, not elsewhere classified [...] Coronary atherosclerosis of unspecified type of vessel, shoalwater or graft PVD (peripheral vascular disease) Peripheral [...] unspecified vessel or lesion type, unspecified whether shoalwater or transplanted heart Mixed hyperlipidemia Essential hypertension [...] and unspecified hyperlipidemia documented [facility] Author Fran Cartwright [facility] March 30, 2023 8:08pm Note Date/Time March 30, 2023 7 :32pm [facility] Medical Records Department [address] [place] [address] H&P Exam - Hospitalist 03/30/231931 MR#: [id number] Acct: [id number] Name: PEDRO PABLO SIERRA Rep #:[id number] : 1950 72 From: Fran Cartwright MD PCP: Dr. Daija Morton MD Status:ADM I N Location: MS3 [id number] HPI - General General Date of Admission: [...] patient has a burning sensation with urination. [facility] Medical History (Updated 03/30/23 @ 20:04 [...] 79.2 H, Lymph % (Auto) 9.3 L, [place] % (Auto) 10.5 H, Eos % (Auto) [...] Sl. Cloudy, Urine pH 6.0, Ur Specific [place] 1.020, Urine Protein 100 H, Urine Glucose [...] 17:14 EDT Reading Location ID and State: [employer] [place] [facility] [employer] , Service support , Shoulder X-Ray 03/30/23 15:46 IMPRESSION: Mild degenerative disease as described with no acute fracture or subluxation. Electronically Signed: Irish Velásquez MD at 17:15 EDT Reading Location ID and State: [facility] [employer] [place] [facility] [employer] , Service support , Thoracic Spine CT 03/30/23 15:46 IMPRESSION: Diffuse osteopenia/osteoporosis with minimal compression fracture of T11, exact age indeterminate. No retropulsion or extension to the pedicles visualized. Underlying degenerative disease. No subluxation. Electronically Signed: Irish Velásquez MD at 17:12 EDT Reading Location ID and State: [facility] [employer] [place] [facility] [employer] , Service support , Chest X-Ray 03/30/23 16:30 IMPRESSION: No acute cardiac pulmonary disease. Electronically Signed: Irish Velásquez MD at 17:15 EDT Reading Location ID and State: [facility] [employer] [place] [facility] [employer] , Service support , Assessment & Plan [...] documentation, 70minutes. Charges/Coding Visit Charges Inpatient E&M: 38588 Init Hosp L3 03/30/232007 <Electronically signed by Fran Cartwright MD> Cosigner Signature (if applicable): CC: Dr. Daija Morton MD; Dr. Fran Cartwright MD~ Signed [facility] Work Phone: History and physical note Author Андрей Cooley [facility] July 24, 2023 9:10pm Note Date/Time July 24, 2023 9 :10pm [facility] Medical Records Department [address] [place] [address] History & Physical Exam 07/24/232103 MR#: [id number] Acct: [id number] Name: PEDRO PABLO SIERRA Rep #:[id number] : 1950 73 From: Андрей Cooley MD [...] management to arrange for residential care facility. [facility] Medical History Asthma Atrial fibrillation Chronic [...] 74.0 H, Lymph % (Auto) 16.0 L, [place] % (Auto) 7.3, Eos % (Auto) 1.1, [...] 17:27 EST Reading Location ID and State: [address] [place] [address] Tel , Service support , Assessment & [...] on anticoagulation Charges/Coding Visit Charges Inpatient E&M: 81417 Init Hosp L2 07/24/232109 <Electronically signed by Андрей Cooley MD> Cosigner Signature (if applicable): CC: Dr. Daija Morton MD; Dr. Андрей Cooley MD~ Signed [facility] Work Phone: History and physical note Author Lisha Talamantes [facility] Note Date/Time August 25, 2024 7:00 pm [facility] Medical Records Department [address] [place] [address] H&P Exam - Hospitalist 08/25/24 1820 MR#: [id number] Acct: [id number] Name: PEDRO PABLO SIERRA Rep #:[id number] : 1950 74 From: Lisha Talamantes DO PCP: Dr. Daija Morton MD Status:ADM I NO Location: [facility] YS554-8 HPI - General General Date of Admission: 08/25/24 Date of Service: 08/25/24 Chief Complaint: Diarrhea/generalized weakness HPI Narrative PEDRO PABLO SIERRA, is a 74 M who presented to the emergency department [facility] on 08/25/2024 with a chief complaint of generalized weakness and diarrhea. Patient had recently been at [facility] and was discharged about 5 days [...] Chest x-ray is unremarkable for acute findings. [facility] Medical History Compression fx, lumbar spine [...] 78.4 H, Lymph % (Auto) 10.3 L, [place] % (Auto) 9.9, Eos % (Auto) 0.3, [...] IMPRESSION: No acute airspace abnormality. [facility] Assessment & Plan Assessment/Plan (1) Acute [...] the current livingenvironment -Was recently discharged from [facility] however patient wasadamant that he did [...] need clarified Charges/Coding Visit Charges Inpatient E&M: 54952 Init Hosp L2 08/25/24 1900 <Electronically signed by Lisha Talamantes DO> Cosigner Signature (if applicable): CC: Dr. Daija Morton MD; Dr. Lisha Talamantes DO~ Signed [facility] Work Phone: History and physical note Author Shilpa Contreras [facility] Note Date/Time December 13, 2024 8:50 pm [facility] Medical Records Department [address] [place] [address] H&P Exam - Hospitalist 12/13/241948 MR#: [id number] Acct: [id number] Name: PEDRO PABLO SIERRA Rep #:[id number] : 1950 74 From: Shilpa Conterras MD PCP: Dr. Daija Morton MD Status:ADM I N Location: [place] [address] HPI - General General Date of Admission: [...] PJ, Tobacco use who presents to the [facility] ED on 12/13/2024 with history of [...] component requested ABG and will trial BiPAP. [facility] Medical History Weakness Debility Failure to [...] % (Auto) 67.3, Lymph % (Auto) 19.5, [place]% (Auto) 8.9, Eos % (Auto) 3.0, Baso [...] significant change since last exam. Reading Location: [id number] Assessment & Plan Assessment/Plan (1) COPD exacerbation: [...] PJ, Tobacco use who presents to the [facility] ED on 12/13/2024 with history of [...] 0.9. #16. 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 Discussed CODE status at length including difference between FULL code, DNR-CCA and DNR-CC status. Following discussions about the differences in these status, requested Full Code status. Advanced CarePlanning Face to Face Time: 16 minutes. Charges/Coding Visit Charges Inpatient E&M: 31398 Init Hosp L3 Procedures Hospitalists Procedures: 17936 Advncd Care Plan 30 Min 12/13/242049 <Electronically signed by Shilpa Contreras MD> Cosigner Signature (if applicable): CC: Dr. Shilpa Contreras MD; Dr. Daija Morton MD~ Signed [facility] Work Phone: [facility] Work Phone: [phone] Dis[facility] instructionsW[facility] Work Phone: [phone] Work Phone: [phone] Work Phone: [phone] Work Phone: [phone] Work Phone: [phone] Discharge instructions Additional Instructions Ice to your rib cage. Support your sore ribs with a pillow. Your chest x-ray did not show any broken ribs sometimes however there are small cracks in the ribs we cannot see on the x-ray. [place] for more severe pain. Otherwise use Tylenol. If you are using the pain medication [place] then do not use Tylenol with it. Follow-up with your doctor as needed. Keep the wounds on your forearms clean. Clean daily with soap and water. Patient apply antibiotic ointment. Watch for any signs of infection if seen follow-up.[facility] Work Phone: Hospital Discharge instructions Additional Instructions Please use the walker and follow-up with your primary care doctor.[facility] Work Phone: Progress note No data available for this section [facility] Reason for referral (narrative)* Outpatient Procedure (Routine) - Closed Specialty Diagnoses / Procedures Referred By Contchelo t Referred To [facility] Diagnoses COPD with chronic bronchitis (HCC) Procedures OXIMETRY WITH AMBULATION NONINVASIVE EAR/PULSE OXIMETRY MULTIPLE Emilie Ko PA-C [address] [address] Respiratory [place] [address] [place] [id number] Referral ID Status Reason Start Date Expiration Date V isits Requested Visits Authorized [id number] Closed Auto-Generate d Referral 11/05/2021 06/18/2022 1 1 * Outpatient Procedure (Routine) - Closed Specialty Diagnoses / Procedures Referred By Contac t Ref[facility] Diagnoses COPD with chronic bronchitis (HCC) Procedures LUNG DIFFUSION CAPACITY (DLCO) DIFFUSING CAPACITY Emilie Jauregui PA-C [address] [address] [place] [address] [address] [address] Referral ID Status Reason Start Date Expiration Date V isits Requested Visits Authorized [id number] Closed Auto-Generate d Referral 11/05/2021 06/18/2022 1 1 * Outpatient Procedure (Routine) - Closed Specialty Diagnoses / Procedures Referred By Contac t Referred [facility] Diagnoses COPD with chronic bronchitis (HCC) Procedures SPIROMETRY BASELINE ONLY SPMTRY W/VC EXPIRATORY BRIAN W/WO MXML VOL VNTJ Emilie Jauregui PA-C [address] [place] [address] [place] [address] [address] Referral ID Status Reason Start Date Expiration Date V isits Requested Visits Authorized [id number] Closed Auto-Generate d Referral 11/05/2021 06/18/2022 1 1 [facility] for referral (narrative)* Outpatient Procedure (Routine) - Pending Review Specialty Diagnoses / Procedures Referred By Contac t Referred To Contact [facility] Diagnoses Essential hypertension Chest pain, unspecified type Procedures ECG COMPLETE ECG ROUTINE ECG W/LEAST 12 LDS W/I&R Anjel Braga APRN.[employer] [address] [place] [address] [facility] [address] [address] Referral ID Status Reason Start Date Expiration Date Visits Requested Visits Authorized [id number] Pending Review Auto-Generat ed Referral 01/28/2022 01/28/2023 1 1 [facility] for referral (narrative)* Outpatient Procedure (Routine) - Authorized Specialty Diagnoses / Procedures Referred By Contac t Referred To Contact [facility] Diagnoses PVD (peripheral vascular disease) (HCC) Procedures PVR LEG COREY VAS LAB PVR LEG COREY [facility]AS LAB NON-INVASIVE PHYSIOLOGIC STUDY EXTREMITY [address] [place] [address] [place] [id number] [address] [address] Referral ID Status Reason Start Date Expiration Date Visits Requested Visits Authorized [id number] Authorized Auto-Generat ed Referral 01/31/2022 01/31/2023 1 1 [facility] for referral (narrative)* Outpatient Procedure (Routine) - Authorized Specialty Diagnoses / Procedures Referred By Contac t Referred To Contact [facility] Diagnoses Peripheral arterial disease (HCC) PVD (peripheral vascular disease) (HCC) Procedures PVR LEG CROEY VAS LAB NON-INVASIVE PHYSIOLOGIC STUDY EXTREMITY 3 [place] [address] [place] [address] [address] Referral ID Status Reason Start Date Expiration Date Visits Requested Visits Authorized [id number] Authorized Auto-Generat ed Referral 12/26/2022 12/26/2023 1 1 [facility] for referral (narrative)* Outpatient Procedure (Routine) - Authorized Specialty Diagnoses / Procedures Referred By Contac t Referred To Contact [facility] Diagnoses Peripheral arterial disease (HCC) Procedures PVR LEG COREY VAS LAB NON-INVASIVE PHYSIOLOGIC STUDY EXTREMITY [address] [place] [address] [place] [address] [facility] [place] [address] Referral ID Status Reason Start Date Expiration Date Visits Requested Visits Authorized [id number] Authorized Auto-Generat ed Referral 01/02/2024 01/01/2025 1 [facility]No reason for referral information availableWVan Wert County Hospital Work Phone: Summary Purpose Family History [...] Documents on File Type Date Recorded Patient Car Carder Expl anation Advance Directive(s) 10/24/2019 3:38 PM [...] Documents on File Type Date Recorded Patient Car Carder Expl anation Advance Directive(s) 08/29/2021 6:53 PM Advance Directive(s) 08/22/2021 7:53 PM Advance Directive(s) 04/10/2020 4:06 PM Advance Directive(s) 12/17/2019 10:49 AM Advance Directive(s) 10/24/2019 3:38 PM Advance Directive(s) 10/17/2019 9:43 AM Advance Directive(s) 10/08/2019 7:18 AM Advance Directive(s) 09/04/2019 1:38 PM Advance Directive(s) 02/07/2016 12:11 AM Advance Directive Response Recorded Date/ Time Name of Medical Power of Educational Speech Language Clinician eloina stephens e- ex August 12, 2021 1:39am Name of Medical Power of Educational Speech Language Clinician Joseph Burrell August 18, 2021 11:56pm Advance Directives Yes March 22, 2016 4:03pm Living Will No September 17, 2021 5:48pm Power of Educational Speech Language Clinician Yes September 17 5:48pm Advance Directive Response Recorded Date/ Time Name of Medical Power of Educational Speech Language Clinician eloina stephens e- ex August 12, 2021 1:39am Name of Medical Power of Educational Speech Language Clinician Joseph Burrell August 18, 2021 11:56pm Name of Medical Power of Educational Speech Language Clinician joseph burrell September 17, 2021 5:48pm Advance Directives Yes March 22, 2016 4:03pm Living Will No October 08, 2021 2:20pm Power of Educational Speech Language Clinician No October 08 2:20pm Documents on File Type Date Recorded Patient Car Carder Expl anation Advance Directive(s) 08/29/2021 6:53 PM [...] Date/ Time Name of Medical Power of Educational Speech Language Clinician eloina stephens e- ex August 12, 2021 1:39am Name of Medical Power of Educational Speech Language Clinician Joseph Burrell August 18, 2021 11:56pm Name of Medical Power of Educational Speech Language Clinician joseph burrell September 17, 2021 5:48pm Advance Directives Yes March 22, 2016 4:03pm Living Will Yes November 25, 2021 5 :33pm Power of Educational Speech Language Clinician Yes November 25, 2021 5:33pm Advance Directive Response Recorded Date/ Time Name of Medical Power of Educational Speech Language Clinician eloina stephens e- ex August 12, 2021 1:39am Name of Medical Power of Educational Speech Language Clinician Joseph Burrell August 18, 2021 11:56pm Name of Medical Power of Educational Speech Language Clinician joseph burrell September 17, 2021 5:48pm Advance Directives Yes March 22, 2016 4:03pm Living Will Yes November 25, 2021 1 1:06pm Power of Educational Speech Language Clinician No November 25, 2021 11:06pm Advance Directive Response Recorded Date/ Time Name of Medical Power of Educational Speech Language Clinician Joseph Burrell August 18, 2021 11:56pm Name of Medical Power of Educational Speech Language Clinician joseph burrell September 17, 2021 5:48pm Name of Medical Power of Educational Speech Language Clinician MICHELLE RICHMOND November 25, 2021 5:33pm Advance Directives Yes March 22, 2016 4:03pm Living Will Yes November 25, 2021 1 1:06pm Power of Educational Speech Language Clinician No November 25, 2021 11:06pm Advance Directive Response Recorded Date/ Time Name of Medical Power of Educational Speech Language Clinician joseph burrell September 17, 2021 5:48pm Name of Medical Power of Educational Speech Language Clinician MICHELLE RICHMOND November 25, 2021 5:33pm Advance Directives Yes March 22, 2016 4:03pm Living Will Yes November 25, 2021 1 1:06pm Power of Educational Speech Language Clinician No November 25, 2021 11:06pm Advance Directive Response Recorded Date/ Time Name of Medical Power of Educational Speech Language Clinician MICHELLEADRIANA REEDON November 25, 2021 5:33pm Advance Directives Yes March 22, 2016 4:03pm Living Will Yes November 25, 2021 1 1:06pm Power of Educational Speech Language Clinician No November 25, 2021 11:06pm Advance Directive Response Recorded Date/ Time Name of Medical Power of Educational Speech Language Clinician MICHELLE BASILIO November 25, 2021 5:33pm Name of Medical Power of Educational Speech Language Clinician recalled January 28, 2022 3:14pm Advance Directives Yes March 22, 2016 4:03pm Living Will Yes January 28 3:14pm Power of Educational Speech Language Clinician Yes January 28 3:14pm Documents on File Type Date Recorded Patient Car Carder Expl anation Advance Directive(s) 10/24/2019 3:38 PM Advance Directive Response Recorded Date/ Time Name of Medical Power of Educational Speech Language Clinician MICHELLE RICHMOND November 25, 2021 5:33pm Name of Medical Power of Educational Speech Language Clinician recalled January 28, 2022 3:14pm Advance Directives Yes March 22, 2016 4:03pm Living Will Yes March 02, 2022 3:17pm Power of Educational Speech Language Clinician No February 3:17pm Advance Directive Response Recorded Date/ Time Name of Medical Power of Educational Speech Language Clinician MICHELLE RICHMOND November 25, 2021 5:33pm Name of Medical Power of Educational Speech Language Clinician recalled January 28, 2022 3:14pm Advance Directives Yes March 22, 2016 4:03pm Living Will No March 07, 2022 5:26pm Power of Educational Speech Language Clinician No February 5:26pm Advance Directive Response Recorded Date/ Time Name of Medical Power of Educational Speech Language Clinician MICHELLE RICHMOND November 25, 2021 5:33pm Name of Medical Power of Educational Speech Language Clinician recalled January 28, 2022 3:14pm Advance Directives Yes March 22, 2016 4:03pm Living Will No March 08, 2022 8:17pm Power of Educational Speech Language Clinician No February 8:17pm Advance Directive Response Recorded Date/ Time Advance Directives Yes March 22, 2016 3:03pm Living Will No March 08, 2022 7:17pm Power of Educational Speech Language Clinician No February 7:17pm Advance Directive Response Recorded Date/ Time Advance Directives Yes March 22, 2016 4:03pm Living Will No October 21, 2022 6: 58pm Power of Educational Speech Language Clinician No October 21, 2022 6:58pm Latest Code [...] Date/ Time Name of Medical Power of Educational Speech Language Clinician JOSEPH Euceda December 31, 2022 3:19pm Advance Directives Yes March 22, 2016 4:03pm Living Will Yes December 31, 2022 3:19pm Power of Educational Speech Language Clinician Yes December 31 3:19pm Advance Directive Response Recorded Date/ Time Name of Medical Power of Educational Speech Language Clinician JOSEPH Euceda December 31, 2022 3:19pm Name of Medical Power of Educational Speech Language Clinician Joseph February 17, 2023 11:06pm Advance Directives Yes March 22, 2016 4:03pm Living Will Yes February 17, 11:06pm Power of Educational Speech Language Clinician Yes February 17, 2023 11:06pm Advance Directive Response Recorded Date/ Time Name of Medical Power of Educational Speech Language Clinician Joseph Burrell March 29, 2023 7:22pm Advance Directives Yes March 22, 2016 4:03pm Living Will No March 30 3:32pm Power of Educational Speech Language Clinician No March 30, 2023 3:32pm Name of Medical Power of Educational Speech Language Clinician JOSEPH Euceda December 31, 2022 3:19pm Name of Medical Power of Educational Speech Language Clinician Jospeh February 17, 2023 11:06pm Advance Directive Response Recorded Date/ Time Name of Medical Power of Educational Speech Language Clinician Joseph Burrell March 29, 2023 7:22pm Advance Directives Yes March 22, 2016 4:03pm Living Will No March 30 9:04pm Power of Educational Speech Language Clinician No March 30, 2023 9:04pm Name of Medical Power of Educational Speech Language Clinician JOSEPH Euceda December 31, 2022 3:19pm Name of Medical Power of Educational Speech Language Clinician Joseph February 17, 2023 11:06pm Advance Directive Response Recorded Date/ Time Name of Medical Power of Educational Speech Language Clinician Joseph Burrell March 29, 2023 6:22pm Advance Directives Yes March 22, 2016 3:03pm Living Will No March 30 8:04pm Power of Educational Speech Language Clinician No March 30, 2023 8:04pm Advance Directive Response Recorded Date/ Time Name of Medical Power of Educational Speech Language Clinician Joseph Burrell March 29, 2023 6:22pm Name of Medical Power of Educational Speech Language Clinician Joseph Burrell July 24, 2023 5:27pm Advance Directives Yes March 22, 2016 3:03pm Living Will Yes July 24 5:27pm Power of Educational Speech Language Clinician Yes July 24, 2023 5:27pm Advance Directive Response Recorded Date/ Time Name of Medical Power of Educational Speech Language Clinician Joseph Burrell July 24, 2023 9:55pm Advance Directives Yes March 22, 2016 3:03pm Living Will No July 30 8:34pm Power of Educational Speech Language Clinician No July 30, 2023 8:34pm Advance Directive Response Recorded Date/ Time Name of Medical Power of Educational Speech Language Clinician Joseph Burrell July 24, 2023 9:55pm Name of Medical Power of Educational Speech Language Clinician Nahed Roxy July 31, 2023 12:57am Advance Directives Yes March 22, 2016 3:03pm Living Will No July 31 12:57am Power of Educational Speech Language Clinician Yes July 31, 2023 12:57am Date Activated Date Inactivated Comments 08/23/2021 7:55 AM 09/13/2021 7:43 PM Question Answer Comments Full Code Order Discussed With: Patient Date Activated Date Inactivated Comments 10/01/2020 11:51 PM 08/21/2021 11:26 AM Advance Directive Response Recorded Date/ Time Name of Medical Power of Educational Speech Language Clinician Joseph Burrell March 29, 2023 6:22pm Advance Directives Yes March 22, 2016 3:03pm Living Will No March 30 8:04pm Power of Educational Speech Language Clinician No March 30, 2023 8:04pm Name of Medical Power of Educational Speech Language Clinician Joseph February 17, 2023 10:06pm Advance Directive Response Recorded Date/ Time Living Will No August 25, 2024 4:43pm Power of Educational Speech Language Clinician No August 25 4:43pm Advance Directives Yes March 22, 2016 4:03pm Advance Directive Response Recorded Date/ Time Living Will No August 25, 2024 7:21pm Power of Educational Speech Language Clinician No August 25 7:21pm Advance Directives Yes March 22, 2016 4:03pm Advance Directive Response Recorded Date/ Time Living Will No August 25, 2024 7:21pm Do you have a Healthcare Power of Educational Speech Language Clinician? No August 25, 2024 7:21pm Advance Directives Yes March 22, 2016 4:03pm Advance Directive Response Recorded Date/ Time Do you have a Healthcare Power of Educational Speech Language Clinician? No December 13, 2024 5:49pm Living Will No August 25, 2024 7:21pm Do you have a Healthcare Power of Educational Speech Language Clinician? No August 25, 2024 7:21pm Advance Directives Yes March 22, 2016 4:03pm Advance Directive Response Recorded Date/ Time Do you have a Healthcare Power of Educational Speech Language Clinician? Yes December 13, 2024 9:26pm Name of Medical Power of Educational Speech Language Clinician Joseph Burrell December 13, 2024 9:26pm Living Will No August 25, 2024 7:21pm Do you have a Healthcare Power of Educational Speech Language Clinician? No August 25, 2024 7:21pm Advance Directives Yes March 22, 2016 4:03pm Advance Directive Response Recorded Date/ Time Do you have a Healthcare Power of Educational Speech Language Clinician? Yes December 13, 2024 9:26pm Name of Medical Power of Educational Speech Language Clinician Joseph Burrell December 13, 2024 9:26pm Do you have a Healthcare Power of Educational Speech Language Clinician? Yes December 17, 2024 4:23pm Living Will No August 25, 2024 7:21pm Do you have a Healthcare Power of Educational Speech Language Clinician? No August 25, 2024 7:21pm Advance Directives Yes March 22, 2016 4:03pm Advance Directive Response Recorded Date/ Time Do you have a Healthcare Power of Educational Speech Language Clinician? Yes December 13, 2024 9:26pm Name of Medical Power of Educational Speech Language Clinician Joseph Burrell December 13, 2024 9:26pm Do you have a Healthcare Power of Educational Speech Language Clinician? Yes December 17, 2024 4:23pm Do you have a Healthcare Power of Educational Speech Language Clinician? 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 Operations during Hospitalization: 10/08/2019-Left common femoral endarterectomy with bovine patch, redo.Thrombectomy of the occluded Left RADHA and EIA.Left common and external iliac stents (Cast x 2), (Gene (more content not included)... Note HNO ID: [id number] Author: Bing Oden ([place]) Service: Vascular Surgery Author Type: Physician Risk Control Officer Type: Discharge Summary Filed: 10/25/2019 4:58 PM [...] status post revascularization of left leg. 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 Reason for Hospitalization: pleasant 69-year-old gentleman, who has recently undergone com (more content not included)... Note HNO ID: [id number] Author: Luis Girard Service: Vascular Surgery Author Type: Nurse Practitioner Type: Discharge Summary Filed: 12/17/2019 5:52 PM Note Text: Attestation signed by Rob Stevens at 12/18/2019 8:07 AM [facility] STAFF PHYSICIAN NOTE OF PERSONAL INVOLVEMENT [...] 1700 12/17/2019 ADMISSION DATE: 12/17/2019 DISCHARGE DISPOSITION: [facility] Facility Discharge Physical Exam: VITAL SIGNS: BP 154/ (more content not included)... Note HNO ID: [id number] Author: Nelson Schuster (Aa) Service: ? Author Type: Merchant Mariner Type: Anesthesia Procedure Notes Filed: 10/08/2019 8:38 [...] (more content not included)... Note HNO ID: [id number] Author: Nelson Schuster (Aa) Service: ? Author Type: Merchant Mariner Type: Anesthesia Procedure Notes Filed: 10/08/2019 8:38 AM Note Text: ANESTHESIOLOGY PROCEDURE NOTE PIV General Information Procedure Start Time/Medication Administration: 10/08/2019 8:10 AM Patient Location: OR Staffing EDGAR: ANA PAULA Andrade (Aa) Performed by: EDGAR [...] October 08, 2019 TIME: 8:36 AM CSN: [id number] Note HNO ID: [id number] Author: Nelson Schuster (Aa) Service: ? Author Type: Merchant Mariner Type: Anesthesia Procedure Notes Filed: 10/08/2019 8:39 AM Note Text: ANESTHESIOLOGY PROCEDURE NOTE A-Line General Information Procedure Start Time/Medication Administration: 10/08/2019 8:19 AM Patient location during procedure: OR Indication: continuous blood pressure monitoring and blood sampling needed Staffing Anesthesiologist: Anabel HERNÁNDEZ: Lesly Schuster (Aa) Performed by: EDGAR Preparation [...] (more content not included)... Note HNO ID: [id number] Author: ANA PAULA Sanchez (Aa) Service: ? Author Type: Merchant Mariner Type: Anesthesia Procedure Notes Filed: 10/08/2019 9:16 [...] October 08, 2019 TIME: 9:15 AM CSN: [id number] Note HNO ID: [id number] Author: Bing lucas (Azalea) Stephanie Service: Vascular Surgery Author Type: Resident Type: Brief Op Note Filed: 10/08/2019 4:12 PM Note Text: BRIEF OPERATIVE / PROCEDURE NOTE LOG ID: [id number] SURGERY/PROCEDURE DATE: 10/08/2019 INCISION/PROCEDURE START TIME: 8:53 AM INCISION CLOSE/PROCEDURE END TIME: 4:06 PM SURGEON(S)/PROCEDURALIST(S) AND COUPLER(S): Surgeon(s) and Role: * Ryan May MD - Primary * Elly (Binu Brown - Resident - Assisting No Additional Staff SURGERY/PROCEDURE(S): Left common HAZMAT CDL A DRIVER endarterectomy with bovine path Left profundoplasty Left [...] (more content not included)... Note HNO ID: [id number] Author: Destiny Sequeira Service: ? Author Type: [...] (more content not included)... Note HNO ID: [id number] Author: Destiny Sequeira Service: ? Author Type: [...] October 10, 2019 TIME: 9:26 AM CSN: [id number] Note HNO ID: [id number] Author: Huong Gonzalez Service: ? Author Type: Nurse Director Of Bands Type: Anesthesia Procedure Notes Filed: 10/10/2019 9:36 AM Note Text: ANESTHESIOLOGY PROCEDURE NOTE Airway General Information Procedure Start Time/Medication Administration: 10/10/2019 9:11 AM Patient location during procedure: OR Staffing Anesthesiologist: Joey Sequeira BLEACH LIQUOR MAKER: Gini Gonzalez Performed by: BLEACH LIQUOR MAKER Indications and Patient Condition Preoxygenated: yes Patient [...] (more content not included)... Note HNO ID: [id number] Author: Bing lucas (Res) Stephanie Service: Vascular Surgery Author Type: Resident Type: Brief Op Note Filed: 10/10/2019 2:08 PM Note Text: BRIEF OPERATIVE / PROCEDURE NOTE LOG ID: [id number] Surgery/Procedure Date: 10/10/2019 Incision/Procedure Start Time: 9:52 AM Incision Close/Procedure End Time: 1:49 PM Surgeon(s)/Proceduralist(s) and Risk Control Officer(s): Surgeon(s) and Role: * Ryan May MD - Primary * Elly (Res) Stephanie - Resident - Assisting No Additional Staff Procedure(s): Washout of left groin Left iliac, common femoral and profunda thrombectomy Left ilio-femoral ringed PTFE interposition graft (end-to-side) L iliofemoral stent extraction Multiple angiograms Anesthesia: General ASA Class: Findings: L iliac in-stent thrombosis, L HAZMAT CDL A DRIVER thrombosis, L profunda thrombosis Fresh hematoma, evacuated Likely external compression of L inguinal ligament onto L ileofemoral stent causing thrombosis Good 3 vessel runoff on completion angio Skin closed with vertic (more content not included)... Note HNO ID: [id number] Author: Nelson Locke Service: ? Author Type: Nurse Director Of Bands Type: Anesthesia Procedure Notes Filed: 10/18/2019 1:06 [...] October 18, 2019 TIME: 1:05 PM CSN: [id number] Note HNO ID: [id number] Author: Nelson Locke Service: ? 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 Note HNO ID: [id number] Author: Veronika Tompkins MD Service: Vascular Surgery Author Type: Resident Type: Brief Op Note Filed: 10/18/2019 3:40 PM Note Text: BRIEF OPERATIVE / PROCEDURE NOTE LOG ID: [id number] Surgery/Procedure Date: 10/18/2019 Incision/Procedure Start Time: 1:31 PM Incision Close/Procedure End Time: 3:10 PM Surgeon(s)/Proceduralist(s) and Risk Control Officer(s): Surgeon(s) and Role: * Lesly Salvador - Primary * Ayad Tompkins, MD - Resident - Assisting No Additional [...] (more content not included)... Note HNO ID: [id number] Author: Luis Girard Service: Vascular Surgery Author Type: Nurse Practitioner Type: Procedures Filed: 10/21/2019 12:34 PM Note Text: BEDSIDE PROCEDURE NOTE PROCEDURE DATE: October 21, 2019 PROCEDURE START TIME: 1100 PRIMARY PROCEDURALIST: Roman Girard (KISHORE) COUPLER(S): Juliana LOPEZ) Dr. Lopez at bedside to [...] (more content not included)... Note HNO ID: [id number] Author: Luis Girard Service: Vascular Surgery Author Type: Nurse Practitioner Type: Procedures Filed: 10/23/2019 3:38 PM Note Text: BEDSIDE PROCEDURE NOTE PROCEDURE DATE: October 23, 2019 PROCEDURE START TIME: 1400 PRIMARY PROCEDURALIST: Roman Girard (KISHORE) COUPLER(S): Juliana LOPEZ) PROCEDURE: NEGATIVE PRESSURE WOUND THERAPY [...] not included)... Procedure Findings Note HNO ID: [id number] Author: Nelson Schuster (Aa) Service: ? Author Type: Merchant Mariner Type: Anesthesia Procedure Notes Filed: 10/08/2019 8:38 [...] (more content not included)... Note HNO ID: [id number] Author: Nelson Schuster (Aa) Service: ? Author Type: Merchant Mariner Type: Anesthesia Procedure Notes Filed: 10/08/2019 8:38 [...] October 08, 2019 TIME: 8:36 AM CSN: [id number] Note HNO ID: [id number] Author: Nelson Schuster (Aa) Service: ? Author Type: Merchant Mariner Type: Anesthesia Procedure Notes Filed: 10/08/2019 8:39 [...] (more content not included)... Note HNO ID: [id number] Author: ANA PAULA Sanchez (Aa) Service: ? Author Type: Merchant Mariner Type: Anesthesia Procedure Notes Filed: 10/08/2019 9:16 [...] October 08, 2019 TIME: 9:15 AM CSN: [id number] Note HNO ID: [id number] Author: Bing Brown Service: Vascular Surgery Author Type: Resident Type: Brief Op Note Filed: 10/08/2019 4:12 PM Note Text: BRIEF OPERATIVE / PROCEDURE NOTE LOG ID: [id number] SURGERY/PROCEDURE DATE: 10/08/2019 INCISION/PROCEDURE START TIME: 8:53 AM INCISION CLOSE/PROCEDURE END TIME: 4:06 PM SURGEON(S)/PROCEDURALIST(S) AND COUPLER(S): Surgeon(s) and Role: * Ryan May MD - Primary * Elly (Azalea) Stephanie - Resident - Assisting No Additional Staff SURGERY/PROCEDURE(S): Left common HAZMAT CDL A DRIVER endarterectomy with bovine path Left profundoplasty Left [...] (more content not included)... Note HNO ID: [id number] Author: Destiny Sequeira Service: ? Author Type: [...] (more content not included)... Note HNO ID: [id number] Author: Destiny Sequeira Service: ? Author Type: [...] October 10, 2019 TIME: 9:26 AM CSN: [id number] Note HNO ID: [id number] Author: Huong Varela) Carlos Service: ? Author Type: Nurse Director Of Bands Type: Anesthesia Procedure Notes Filed: 10/10/2019 9:36 AM Note Text: ANESTHESIOLOGY PROCEDURE NOTE Airway General Information Procedure Start Time/Medication Administration: 10/10/2019 9:11 AM Patient location during procedure: OR Staffing Anesthesiologist: Joey Sequeira BLEACH LIQUOR MAKER: Gini Gonzalez Performed by: BLEACH LIQUOR MAKER Indications and Patient Condition Preoxygenated: yes Patient [...] (more content not included)... Note HNO ID: [id number] Author: Bing lucas (Binu Brown Service: Vascular Surgery Author Type: Resident Type: Brief Op Note Filed: 10/10/2019 2:08 PM Note Text: BRIEF OPERATIVE / PROCEDURE NOTE LOG ID: [id number] Surgery/Procedure Date: 10/10/2019 Incision/Procedure Start Time: 9:52 AM Incision Close/Procedure End Time: 1:49 PM Surgeon(s)/Proceduralist(s) and Risk Control Officer(s): Surgeon(s) and Role: * Ryan May MD - Primary * Elly Brown - Resident - Assisting No Additional Staff Procedure(s): Washout of left groin Left iliac, common femoral and profunda thrombectomy Left ilio-femoral ringed PTFE interposition graft (end-to-side) L iliofemoral stent extraction Multiple angiograms Anesthesia: General ASA Class: Findings: L iliac in-stent thrombosis, L HAZMAT CDL A DRIVER thrombosis, L profunda thrombosis Fresh hematoma, evacuated Likely external compression of L inguinal ligament onto L ileofemoral stent causing thrombosis Good 3 vessel runoff on completion angio Skin closed with vertic (more content not included)... Note HNO ID: [id number] Author: Nelson Locke Service: ? Author Type: Nurse Director Of Bands Type: Anesthesia Procedure Notes Filed: 10/18/2019 1:06 [...] October 18, 2019 TIME: 1:05 PM CSN: [id number] Note HNO ID: [id number] Author: Nelson Locke Service: ? 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 Note HNO ID: [id number] Author: Veronika Tompkins MD Service: Vascular Surgery Author Type: Resident Type: Brief Op Note Filed: 10/18/2019 3:40 PM Note Text: BRIEF OPERATIVE / PROCEDURE NOTE LOG ID: [id number] Surgery/Procedure Date: 10/18/2019 Incision/Procedure Start Time: 1:31 PM Incision Close/Procedure End Time: 3:10 PM Surgeon(s)/Proceduralist(s) and Risk Control Officer(s): Surgeon(s) and Role: * Lesly Salvador - [...] (more content not included)... Note HNO ID: [id number] Author: Luis Girard Service: Vascular Surgery Author Type: Nurse Practitioner Type: Procedures Filed: 10/21/2019 12:34 PM Note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 alcohol or drug abuse patient.[facility] HospitalIn the event this information is protected by the Federal Confidentiality of Alcohol and Drug Abuse Patient Records regulations: The Federal rules restrict any use of the information to criminally investigate or prosecute any alcohol or drug abuse patient.[facility] HospitalIn the event this information is protected by the Federal Confidentiality of Alcohol and Drug Abuse Patient Records regulations: The Federal rules restrict any use of the information to criminally investigate or prosecute any alcohol or drug abuse patient.[facility] HospitalIn the event this information is protected by the Federal Confidentiality of Alcohol and Drug Abuse Patient Records regulations: The Federal rules restrict any use of the information to criminally investigate or prosecute any alcohol or drug abuse patient.[facility] HospitalIn the event this information is protected by the Federal Confidentiality of Alcohol and Drug Abuse Patient Records regulations: The Federal rules restrict any use of the information to criminally investigate or prosecute any alcohol or drug abuse patient.[facility] HospitalIn the event this information is protected by the Federal Confidentiality of Alcohol and Drug Abuse Patient Records regulations: The Federal rules restrict any use of the information to criminally investigate or prosecute any alcohol or drug abuse patient.[facility] HospitalIn the event this information is protected by the Federal Confidentiality of Alcohol and Drug Abuse Patient Records regulations: The Federal rules restrict any use of the information to criminally investigate or prosecute any alcohol or drug abuse patient.[facility] HospitalIn the event this information is protected by the Federal Confidentiality of Alcohol and Drug Abuse Patient Records regulations: The Federal rules restrict any use of the information to criminally investigate or prosecute any alcohol or drug abuse patient.[facility] HospitalIn the event this information is protected by the Federal Confidentiality of Alcohol and Drug Abuse Patient Records regulations: The Federal rules restrict any use of the information to criminally investigate or prosecute any alcohol or drug abuse patient.[facility] HospitalIn the event this information is protected by the Federal Confidentiality of Alcohol and Drug Abuse Patient Records regulations: The Federal rules restrict any use of the information to criminally investigate or prosecute any alcohol or drug abuse patient.[facility] HospitalIn the event this information is protected by the Federal Confidentiality of Alcohol and Drug Abuse Patient Records regulations: The Federal rules restrict any use of the information to criminally investigate or prosecute any alcohol or drug abuse patient.[facility] HospitalIn the event this information is protected by the Federal Confidentiality of Alcohol and Drug Abuse Patient Records regulations: The Federal rules restrict any use of the information to criminally investigate or prosecute any alcohol or drug abuse patient.[facility] HospitalIn the event this information is protected by the Federal Confidentiality of Alcohol and Drug Abuse Patient Records regulations: The Federal rules restrict any use of the information to criminally investigate or prosecute any alcohol or drug abuse patient.[facility] HospitalIn the event this information is protected by the Federal Confidentiality of Alcohol and Drug Abuse Patient Records regulations: The Federal rules restrict any use of the information to criminally investigate or prosecute any alcohol or drug abuse patient.[facility] HospitalIn the event this information is protected by the Federal Confidentiality of Alcohol and Drug Abuse Patient Records regulations: The Federal rules restrict any use of the information to criminally investigate or prosecute any alcohol or drug abuse patient.[facility] HospitalIn the event this information is protected by the Federal Confidentiality of Alcohol and Drug Abuse Patient Records regulations: The Federal rules restrict any use of the information to criminally investigate or prosecute any alcohol or drug abuse patient.[facility] HospitalIn the event this information is protected by the Federal Confidentiality of Alcohol and Drug Abuse Patient Records regulations: The Federal rules restrict any use of the information to criminally investigate or prosecute any alcohol or drug abuse patient.[facility] HospitalIn the event this information is protected by the Federal Confidentiality of Alcohol and Drug Abuse Patient Records regulations: The Federal rules restrict any use of the information to criminally investigate or prosecute any alcohol or drug abuse patient.[facility] HospitalIn the event this information is protected by the Federal Confidentiality of Alcohol and Drug Abuse Patient Records regulations: The Federal rules restrict any use of the information to criminally investigate or prosecute any alcohol or drug abuse patient.[facility] HospitalIn the event this information is protected by the Federal Confidentiality of Alcohol and Drug Abuse Patient Records regulations: The Federal rules restrict any use of the information to criminally investigate or prosecute any alcohol or drug abuse patient.[facility] HospitalIn the event this information is protected by the Federal Confidentiality of Alcohol and Drug Abuse Patient Records regulations: The Federal rules restrict any use of the information to criminally investigate or prosecute any alcohol or drug abuse patient.[facility] HospitalIn the event this information is protected by the Federal Confidentiality of Alcohol and Drug Abuse Patient Records regulations: The Federal rules restrict any use of the information to criminally investigate or prosecute any alcohol or drug abuse patient.[facility] HospitalIn the event this information is protected by the Federal Confidentiality of Alcohol and Drug Abuse Patient Records regulations: The Federal rules restrict any use of the information to criminally investigate or prosecute any alcohol or drug abuse patient.[facility] HospitalIn the event this information is protected by the Federal Confidentiality of Alcohol and Drug Abuse Patient Records regulations: The Federal rules restrict any use of the information to criminally investigate or prosecute any alcohol or drug abuse patient.[facility] HospitalIn the event this information is protected by the Federal Confidentiality of Alcohol and Drug Abuse Patient Records regulations: The Federal rules restrict any use of the information to criminally investigate or prosecute any alcohol or drug abuse patient.[facility] HospitalIn the event this information is protected by the Federal Confidentiality of Alcohol and Drug Abuse Patient Records regulations: The Federal rules restrict any use of the information to criminally investigate or prosecute any alcohol or drug abuse patient.[facility] HospitalIn the event this information is protected by the Federal Confidentiality of Alcohol and Drug Abuse Patient Records regulations: The Federal rules restrict any use of the information to criminally investigate or prosecute any alcohol or drug abuse patient.[facility] HospitalIn the event this information is protected by the Federal Confidentiality of Alcohol and Drug Abuse Patient Records regulations: The Federal rules restrict any use of the information to criminally investigate or prosecute any alcohol or drug abuse patient.[facility] HospitalIn the event this information is protected by the Federal Confidentiality of Alcohol and Drug Abuse Patient Records regulations: The Federal rules restrict any use of the information to criminally investigate or prosecute any alcohol or drug abuse patient.[facility] HospitalIn the event this information is protected by the Federal Confidentiality of Alcohol and Drug Abuse Patient Records regulations: The Federal rules restrict any use of the information to criminally investigate or prosecute any alcohol or drug abuse patient.[facility] HospitalIn the event this information is protected by the Federal Confidentiality of Alcohol and Drug Abuse Patient Records regulations: The Federal rules restrict any use of the information to criminally investigate or prosecute any alcohol or drug abuse patient.[facility] HospitalIn the event this information is protected by the Federal Confidentiality of Alcohol and Drug Abuse Patient Records regulations: The Federal rules restrict any use of the information to criminally investigate or prosecute any alcohol or drug abuse patient.[facility] HospitalIn the event this information is protected by the Federal Confidentiality of Alcohol and Drug Abuse Patient Records regulations: The Federal rules restrict any use of the information to criminally investigate or prosecute any alcohol or drug abuse patient.[facility] HospitalIn the event this information is protected by the Federal Confidentiality of Alcohol and Drug Abuse Patient Records regulations: The Federal rules restrict any use of the information to criminally investigate or prosecute any alcohol or drug abuse patient.[facility] HospitalIn the event this information is protected by the Federal Confidentiality of Alcohol and Drug Abuse Patient Records regulations: The Federal rules restrict any use of the information to criminally investigate or prosecute any alcohol or drug abuse patient.[facility] HospitalIn the event this information is protected by the Federal Confidentiality of Alcohol and Drug Abuse Patient Records regulations: The Federal rules restrict any use of the information to criminally investigate or prosecute any alcohol or drug abuse patient.[facility] HospitalIn the event this information is protected by the Federal Confidentiality of Alcohol and Drug Abuse Patient Records regulations: The Federal rules restrict any use of the information to criminally investigate or prosecute any alcohol or drug abuse patient.[facility] HospitalIn the event this information is protected by the Federal Confidentiality of Alcohol and Drug Abuse Patient Records regulations: The Federal rules restrict any use of the information to criminally investigate or prosecute any alcohol or drug abuse patient.[facility] HospitalIn the event this information is protected by the Federal Confidentiality of Alcohol and Drug Abuse Patient Records regulations: The Federal rules restrict any use of the information to criminally investigate or prosecute any alcohol or drug abuse patient.[facility] HospitalIn the event this information is protected by the Federal Confidentiality of Alcohol and Drug Abuse Patient Records regulations: The Federal rules restrict any use of the information to criminally investigate or prosecute any alcohol or drug abuse patient.[facility] HospitalIn the event this information is protected by the Federal Confidentiality of Alcohol and Drug Abuse Patient Records regulations: The Federal rules restrict any use of the information to criminally investigate or prosecute any alcohol or drug abuse patient.[facility] HospitalIn the event this information is protected by the Federal Confidentiality of Alcohol and Drug Abuse Patient Records regulations: The Federal rules restrict any use of the information to criminally investigate or prosecute any alcohol or drug abuse patient.[facility] HospitalIn the event this information is protected by the Federal Confidentiality of Alcohol and Drug Abuse Patient Records regulations: The Federal rules restrict any use of the information to criminally investigate or prosecute any alcohol or drug abuse patient.[facility] HospitalIn the event this information is protected by the Federal Confidentiality of Alcohol and Drug Abuse Patient Records regulations: The Federal rules restrict any use of the information to criminally investigate or prosecute any alcohol or drug abuse patient.[facility] HospitalIn the event this information is protected by the Federal Confidentiality of Alcohol and Drug Abuse Patient Records regulations: The Federal rules restrict any use of the information to criminally investigate or prosecute any alcohol or drug abuse patient.[facility] HospitalIn the event this information is protected by the Federal Confidentiality of Alcohol and Drug Abuse Patient Records regulations: The Federal rules restrict any use of the information to criminally investigate or prosecute any alcohol or drug abuse patient.[facility] HospitalIn the event this information is protected by the Federal Confidentiality of Alcohol and Drug Abuse Patient Records regulations: The Federal rules restrict any use of the information to criminally investigate or prosecute any alcohol or drug abuse patient.[facility] HospitalIn the event this information is protected by the Federal Confidentiality of Alcohol and Drug Abuse Patient Records regulations: The Federal rules restrict any use of the information to criminally investigate or prosecute any alcohol or drug abuse patient.[facility] HospitalIn the event this information is protected by the Federal Confidentiality of Alcohol and Drug Abuse Patient Records regulations: The Federal rules restrict any use of the information to criminally investigate or prosecute any alcohol or drug abuse patient.[facility] HospitalIn the event this information is protected by the Federal Confidentiality of Alcohol and Drug Abuse Patient Records regulations: The Federal rules restrict any use of the information to criminally investigate or prosecute any alcohol or drug abuse patient.[facility] HospitalIn the event this information is protected by the Federal Confidentiality of Alcohol and Drug Abuse Patient Records regulations: The Federal rules restrict any use of the information to criminally investigate or prosecute any alcohol or drug abuse patient.[facility] HospitalIn the event this information is protected by the Federal Confidentiality of Alcohol and Drug Abuse Patient Records regulations: The Federal rules restrict any use of the information to criminally investigate or prosecute any alcohol or drug abuse patient.[facility] HospitalIn the event this information is protected by the Federal Confidentiality of Alcohol and Drug Abuse Patient Records regulations: The Federal rules restrict any use of the information to criminally investigate or prosecute any alcohol or drug abuse patient.[facility] HospitalIn the event this information is protected by the Federal Confidentiality of Alcohol and Drug Abuse Patient Records regulations: The Federal rules restrict any use of the information to criminally investigate or prosecute any alcohol or drug abuse patient.[facility] HospitalIn the event this information is protected by the Federal Confidentiality of Alcohol and Drug Abuse Patient Records regulations: The Federal rules restrict any use of the information to criminally investigate or prosecute any alcohol or drug abuse patient.[facility] HospitalIn the event this information is protected by the Federal Confidentiality of Alcohol and Drug Abuse Patient Records regulations: The Federal rules restrict any use of the information to criminally investigate or prosecute any alcohol or drug abuse patient.[facility] HospitalIn the event this information is protected by the Federal Confidentiality of Alcohol and Drug Abuse Patient Records regulations: The Federal rules restrict any use of the information to criminally investigate or prosecute any alcohol or drug abuse patient.[facility] HospitalIn the event this information is protected by the Federal Confidentiality of Alcohol and Drug Abuse Patient Records regulations: The Federal rules restrict any use of the information to criminally investigate or prosecute any alcohol or drug abuse patient.[facility] HospitalIn the event this information is protected by the Federal Confidentiality of Alcohol and Drug Abuse Patient Records regulations: The Federal rules restrict any use of the information to criminally investigate or prosecute any alcohol or drug abuse patient.[facility] HospitalIn the event this information is protected by the Federal Confidentiality of Alcohol and Drug Abuse Patient Records regulations: The Federal rules restrict any use of the information to criminally investigate or prosecute any alcohol or drug abuse patient.[facility] HospitalIn the event this information is protected by the Federal Confidentiality of Alcohol and Drug Abuse Patient Records regulations: The Federal rules restrict any use of the information to criminally investigate or prosecute any alcohol or drug abuse patient.[facility] HospitalIn the event this information is protected by the Federal Confidentiality of Alcohol and Drug Abuse Patient Records regulations: The Federal rules restrict any use of the information to criminally investigate or prosecute any alcohol or drug abuse patient.[facility] HospitalIn the event this information is protected by the Federal Confidentiality of Alcohol and Drug Abuse Patient Records regulations: The Federal rules restrict any use of the information to criminally investigate or prosecute any alcohol or drug abuse patient.[facility] HospitalIn the event this information is protected by the Federal Confidentiality of Alcohol and Drug Abuse Patient Records regulations: The Federal rules restrict any use of the information to criminally investigate or prosecute any alcohol or drug abuse patient.[facility] HospitalIn the event this information is protected by the Federal Confidentiality of Alcohol and Drug Abuse Patient Records regulations: The Federal rules restrict any use of the information to criminally investigate or prosecute any alcohol or drug abuse patient.[facility] Reason for Visit (unrecogniz ed section and content) Reason Onset Date Comments Transition Of Care 09/14/2021 TCM Initial M [facility] Discharge 09/13/21 Reason Onset Date Comments Transition Of Care 09/14/2021 TCM Pharmacy- Hospital discharge 09/13/21 Reason Comments Recheck Hosp follow up Specialty Diagnoses / Procedures Referred By Contchelo t Referred To Contact Internal Medicine / INTERNAL MEDICINE Diagnoses hospital follow up Procedures 4C EST HOSP/ER Hans Izquierdo [address] [place] [address] Anjel Braga APRN.CHANNEL MAN [address] [place] [address] Referral ID Status Reason Start Date Expiration Date V isits Requested Visits Authorized [id number] Closed Financial Clearance Required - OON Payor Patient Cleared INN/SMCP Payor Auth Obtained 09/15/2021 06/18/2022 1 1 Reason Comments Patient Update Reason Comments Medication Problem Plan of Care Reason Comments Nifedipine issue Reason Onset Date Comments Transition Of Care 09/16/2021 TCM f/u [facility] Discharge 09/13/21 Reason Comments FYI-OT plan of care Reason Comments Anticoagulation Reason Comments Orders Reason Comments medication issue Reason Comments [facility] verbal order needed Reason Comments Medication Problem Reason Comments Consult gallbladder, abdomen pain Specialty Diagnoses / Procedures Referred By Contac t Referred To Contact General Surgery / GENERAL SURGERY Diagnoses Acute cholecystitis Abdominal pain Acute cholecystitis, persistent abdominal pain Procedures OFFICE/OUTPATIENT NEW MODERATE MDM 45-59 MINUTES NEW DDI PATIENT Adelaida Farias MD [address] [place] [address] Kaye Ortega MD [address] [place] [address] Referral ID Status Reason Start Date Expiration Date V isits Requested Visits Authorized [id number] Closed Financial Clearance Required - OON Payor Patient Cleared INN/SMCP Payor Auth Obtained 09/08/2021 06/18/2022 1 1 Reason Comments Patient Question visit from 09/15/21 Reason Comments Patient Question Reason Comments Appointment CONSULT FOR CHOLECYS TECTOMY Reason Comments Appointment Reason Onset Date Comments Transition Of Care 09/21/2021 [facility] Discharge 09/13/21 Reason Comments Work excuse letter Reason Onset Date Comments Transition Of Care 09/29/2021 [facility] Discharge 09/13/21 Reason Onset Date Comments Refill Request 10/04/2021 Reason Comments Hypertension Specialty Diagnoses / Procedures Referred By [facility] Referred To Contact Internal Medicine / INTERNAL MEDICINE Diagnoses 09/13 ER Discharge [facility] Broken ribs follow up Procedures 4C EST HOSP/ER FU Daija Morton MD [address] [place] [address] Anjel Braga APRN.CNP [address] [place] [address] Referral ID Status Reason Start Date Expiration Date Visits Re quested Visits Authorized [id number] Closed 10/07/2021 06/18/2022 1 1 Reason Comments Coumadin update / [place] Reason Comments Patient Update Orders Reason Comments [...] VOL VNTJ Emilie Jauregui PA-C [address] [address] Respiratory [place] [address] [place] [address] Referral ID Status Reason Start Date Expiration Date V isits Requested Visits Authorized [id number] Closed Auto-Generate d Referral 11/05/2021 06/18/2022 1 1 Specialty Diagnoses / Procedures Referred By Contac t Referred To Contact [facility] Diagnoses COPD with chronic bronchitis (HCC) Procedures OXIMETRY WITH AMBULATION NONINVASIVE EAR/PULSE OXIMETRY MULTIPLE DETER Emilie Jauregui PA-C [address] [address] Referral ID Status Reason Start Date Expiration Date V isits Requested Visits Authorized [id number] Closed Auto-Generate d Referral 11/05/2021 06/18/2022 1 1 Specialty Diagnoses / Procedures Referred By Contac t Referred To Contact Pulmonary and Critical Care Medicine / PULMONARY MEDICINE Diagnoses pre op clearance for gen surgery Procedures RI EST PULM GENERAL Daija Morton MD [address] [place] [address] Emilie Jauregui PA-C [address] [address] Referral ID Status Reason Start Date Expiration Date Visits Re quested Visits Authorized [id number] Closed 10/21/2021 06/18/2022 1 1 Reason Comments Results Reason Comments Cardiac Clearance surgery to have gall bladder removed Reason Comments UTI Specialty Diagnoses / Procedures Referred By Contac t Referred To Contact Internal Medicine / INTERNAL MEDICINE Diagnoses Essential hypertension UTI Procedures OFFICE/OUTPATIENT ESTABLISHED MOD MDM 30-39 MIN 4C EST Self Older, Anjel, 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 [address] [place] [address] Referral ID Status Reason Start Date Expiration Date Visits Re quested Visits Authorized [id number] Closed 11/17/2021 06/18/2022 1 1 Reason Onset Date Comments Refill Request 11/18/2021 Reason Onset Date Comments Refill Request 11/19/2021 Reason Comments Medication Request Reason Comments Clinical Update Reason Comments Patient Update Medication Request Reason Comments Appointment 01/14 ED F/U-need ED location to retrieve records Reason Comments ER F/U [facility] Specialty Diagnoses / Procedures Referred By Contac t Referred To Contact Internal Medicine / INTERNAL MEDICINE Diagnoses Follow-up [facility] f/u Procedures OFFICE/OUTPATIENT ESTABLISHED MOD [facility] 30-39 MIN 4C EST HOSP/ER FU MD [place] Wood Terri, RADIO MECHANIC HELPER.CNC ROUTER OPERATOR [address] [place] [address] Referral ID Status Reason Start Date Expiration Date Visits Re quested Visits Authorized [id number] Closed 01/14/2022 06/18/2022 1 1 Reason Comments Established Patient follow up gallbladde r Reason Comments Recheck Follow up, Hosp foll ow up Specialty Diagnoses / Procedures Referred By Contac t Referred To Contact Internal Medicine / INTERNAL MEDICINE Diagnoses [facility] ER f/u. 01-25-22. Black stool. Procedures 4C EST HOSP/ER MD Omi Marks Joy, 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 [address] [place] [address] Referral ID Status Reason Start Date Expiration Date Visits Re quested Visits Authorized [id number] Closed 01/28/2022 04/28/2022 1 1 Reason Comments Follow Up Specialty Diagnoses / Procedures Referred By Contac t Referred To Contact Vascular Surgery / VASCULAR SURGERY Diagnoses PVD 1 year f/u with PVR and arterial Duplex [place] [address] [address] [place] [address] [place] [address] [place] [address] Referral ID Status Reason Start Date Expiration Date Visits Re quested Visits Authorized [id number] Closed 01/31/2022 06/18/2022 1 1 Reason Comments Results, Lab Reason Onset Date Comments Refill Request 02/22/2022 Reason Comments Erroneous encounter-disregard Reason Comments Fall Reason Comments SWCC orders needed today Reason Comments admit to SWCC Reason Comments Social Work Services Reason Comments Medication Question Reason Comments Syncope Reason Onset Date Comments Refill Request 08/25/2022 Patient Update 08/25/2022 Reason Comments M[facility] follow-up Reason Onset Date Comments Refill Request [...] fix this, also fell twice while in [facility] Reason Comments Mental status change Reason Comments No Show Reason Onset Date Comments Refill Request 01/23/2024 Reason Onset Date Comments Refill Request 03/12/2024 Reason Comments UTI Foul odor, confusion Reason Comments Home Health Orders Reason Comments [place] [employer] update Reason Comments Home Care Management Patient Update Reason Comments MCC discharge [facility] Reason Onset Date Comments Refill Request 12/13/2024 Reason Comments [facility] requesting records Reason Onset Date Comments Refill Request 12/16/2024 Care Teams (unrecognized sec tion and content) Territory Outside Sales Manager Relationship Specialty Start Date End Date Daija Morton MD [address] [place] [address] PCP - General Internal Medicine 03/21/17 Beatriz Correa CNP Referring 09/28/20 Daija Morton MD [address] [place] [address] Home Care Physician Internal Medicine 09/28/20 13, Pharmacist [address] [place] [address] Pharmacist Pharmacy 06/17/21 Lizette Ulloa, ОЛЕГ [address] [place] [address] Primary Care Aviation Technical Systems Specialist Internal Medicine 09/14/21 10/14/21 Tamika Almaguer PASSPORT Tube Filler 09/26/17 Territory Outside Sales Manager Relationship Specialty Start Date End Date Daija Morton MD [address] [place] [address] PCP - General Internal Medicine 03/21/17 Beatriz Correa, CHANNEL MAN Referring 09/28/20 Daija Morton MD [address] [place] [address] Home Care Physician Internal Medicine 09/28/20 13, Pharmacist [id number] [place] [address] Pharmacist Pharmacy 06/17/21 Lizette Ulloa, ОЛЕГ [address] [place] [address] Primary Care [employer] Specialist Internal Medicine 09/14/21 10/14/21 Tamika HARRELL Tube Filler 09/26/17 Territory Outside Sales Manager Relationship Specialty Start Date End Date Daija Morton MD [address] [place] [address] PCP - General Internal Medicine 03/21/17 Beatriz Correa, CHANNEL MAN Referring 09/28/20 Daija Morton MD [address] [place] [address] Home Care Physician Internal Medicine 09/28/20 13, Pharmacist [address] [place] [address] Pharmacist Pharmacy 06/17/21 Lizette Ulloa RN [address] [place] [address] Primary Care [employer] Specialist Internal Medicine 09/14/21 10/14/21 Tamika HARRELL Tube Filler 09/26/17 Territory Outside Sales Manager Relationship Specialty Start Date End Date Daija Morton MD [address] [place] [address] PCP - General Internal Medicine 03/21/17 Beatriz Correa, CHANNEL MAN Referring 09/28/20 Daija Morton MD [address] [place] [address] Home Care Physician Internal Medicine 09/28/20 13, Pharmacist [id number] [place] [address] Pharmacist Pharmacy 06/17/21 Lizette Ulloa RN [address] [place] [address] Primary Care [employer] Technical Systems Specialist Internal Medicine 09/14/21 10/14/21 Tamika HARRELL Tube Filler 09/26/17 Territory Outside Sales Manager Relationship Specialty Start Date End Date Daija Morton MD [address] [place] [address] PCP - General Internal Medicine 03/21/17 Beatriz Correa, CHANNEL MAN Referring 09/28/20 Daija Morton MD [address] [place] [address] Home Care Physician Internal Medicine 09/28/20 13, Pharmacist [address] [place] [address] Pharmacist Pharmacy 06/17/21 Lizette Ulloa RN [address] [place] [address] Primary Care [employer] Specialist Internal Medicine 09/14/21 10/14/21 Tamika HARRELL Tube Filler 09/26/17 Territory Outside Sales Manager Relationship Specialty Start Date End Date Daija Morton MD [address] [place] [place] [address] PCP - General Internal Medicine 03/21/17 Beatriz Correa CNP Referring 09/28/20 Daija Morton MD [address] [place] [place] [address] Home Care Physician Internal Medicine 09/28/20 13, Pharmacist [address] [place] [address] Pharmacist Pharmacy 06/17/21 Lizette Ulloa, RN [address] [place] [address] Primary Care Aviation Technical Systems Specialist Internal Medicine 09/14/21 10/14/21 Tamika HARRELL Tube Filler 09/26/17 Territory Outside Sales Manager Relationship Specialty Start Date End Date Daija Morton MD [address] [facility] [place] [address] PCP - General Internal Medicine 03/21/17 Beatriz Correa CNP Referring 09/28/20 Daija Morton MD [address] [facility] [place] [address] Home Care Physician Internal Medicine 09/28/20 13, Pharmacist [address]68 [place] [address] Pharmacist Pharmacy 06/17/21 Lizette Ulloa, RN [address] [place] [address] Primary Care [employer] Technical Systems Specialist Internal Medicine 09/14/21 10/14/21 Tamika HARRELL Tube Filler 09/26/17 Territory Outside Sales Manager Relationship Specialty Start Date End Date Daija Morton MD [address] [facility] [place] [address] PCP - General Internal Medicine 03/21/17 Beatriz Correa CNP Referring 09/28/20 Daija Morton MD [address] [place] [address] Home Care Physician Internal Medicine 09/28/20 13, Pharmacist [address] [place] [address] Pharmacist Pharmacy 06/17/21 Lizette Ulloa RN [address] [facility] [place] [address] Primary Care [employer] Technical Systems Specialist Internal Medicine 09/14/21 10/14/21 Kaye Ortega MD [address] [place] [phone] General Surgery 09/21/21 Tamika Ally Almaguer [facility] Tube Filler 09/26/17 Territory Outside Sales Manager Relationship Specialty Start Date End Date Daija Morton MD [address] [place] [address] PCP - General Internal Medicine 03/21/17 Beatriz Correa CNP Referring 09/28/20 Daija Morton MD [address] [place] [address] Home Care Physician Internal Medicine 09/28/20 13, Pharmacist [address] [place] [address] Pharmacist Pharmacy 06/17/21 Lizette Ulloa RN [address] [place] [address] Primary Care [employer] Technical Systems Specialist Internal Medicine 09/14/21 10/14/21 Kaye Ortega MD [address] [facility] [place] [address] General Surgery 09/21/21 [facility]adestiny [facility] Tube Filler 09/26/17 Territory Outside Sales Manager Relationship Specialty Start Date End Date Daija Morton MD [address] [place], [place] [phone] PCP - General Internal Medicine 03/21/17 Beatriz Correa, LAMIN Referring 09/28/20 Daija Morton MD [address] [place] [address] Home Care Physician Internal Medicine 09/28/20 13, Pharmacist [address] [place] [address] Pharmacist Pharmacy 06/17/21 Lizette Ulloa, ОЛЕГ [address] [facility] [place] [address] Primary Care [employer] Technical Systems Specialist Internal Medicine 09/14/21 10/14/21 Kaye Ortega MD [address] [facility] [place] [address] General Surgery 09/21/21 Tamika HARRELL Tube Filler 09/26/17 Territory Outside Sales Manager Relationship Specialty Start Date End Date Daija Morton MD [address] [place] [address] PCP - General Internal Medicine 03/21/17 Beatriz Correa, LAMIN Referring 09/28/20 Daija Morton MD [address] [place] [address] Home Care Physician Internal Medicine 09/28/20 13, Pharmacist 7[address] [place] [address] Pharmacist Pharmacy 06/17/21 Lizette Ulloa, ОЛЕГ [address] [place] [address] Primary Care [employer] Technical Systems Specialist Internal Medicine 09/14/21 10/14/21 Kaye Ortega MD [address] [place] [address] General Surgery 09/21/21 Tamika HARRELL Tube Filler 09/26/17 Territory Outside Sales Manager Relationship Specialty Start Date End Date Daija Morton MD [address] [place] [address] PCP - General Internal Medicine 03/21/17 Beatriz Correa, LAMIN Referring 09/28/20 Daija Morton MD [address] [place] [address] Home Care Physician Internal Medicine 09/28/20 13, Pharmacist [address] [place] [address] Pharmacist Pharmacy 06/17/21 Lizette Ulloa RN [address] [place] [address] Primary Care [employer] Technical [employer] Specialist Internal Medicine 09/14/21 10/14/21 Kaye Ortega MD [address] [place] [address] General Surgery 09/21/21 Tamikadestiny Almaguer [employer] Tube Filler 09/26/17 Territory Outside Sales Manager Relationship Specialty Start Date End Date Daija Morton MD [address] [place] [address] PCP - General Internal Medicine 03/21/17 Beatriz Correa, CHANNEL MAN Referring 09/28/20 Daija Morton MD [address] [place] [address] Home Care Physician Internal Medicine 09/28/20 13, Pharmacist [address] [place] [address] Pharmacist Pharmacy 06/17/21 Lizette Ulloa RN [address] [facility] [place] [address] Primary Care [employer] Technical Systems Specialist Internal Medicine 09/14/21 10/14/21 Kaye Ortega MD [address] [place] [address] General Surgery 09/21/21 Tamika HARRELL Tube Filler 09/26/17 Territory Outside Sales Manager Relationship Specialty Start Date End Date Daija Morton MD [address] [place], [place] 078093 [phone] PCP - General Internal Medicine 03/21/17 Beatriz Correa CNP Referring 09/28/20 Daija Morton MD [address] [place], [place] 491239 [phone] Home Care Physician Internal Medicine 09/28/20 Fco Franklin, ОЛЕГ [address] [place] [address] Photocomposition Keyboard Operator 10/08/20 12/21/20 13, Pharmacist [address] [place] [address] Pharmacist Pharmacy 06/17/21 Lizette Ulloa, ОЛЕГ [address] [place] [address] Primary Care [employer] Specialist Internal Medicine 09/14/21 10/14/21 Kaye Ortega MD [address] [place] [phone] General Surgery 09/21/21 Tamika Ally Almaguer PASSANYI Tube Filler 09/26/17 Territory Outside Sales Manager Relationship Specialty Start Date End Date Daija Morton MD [address] [place] [address] PCP - General Internal Medicine 03/21/17 Beatriz Correa CNP Referring 09/28/20 Daija Morton MD [address] [place] [address] Home Care Physician Internal Medicine 09/28/20 13, Pharmacist [address] [place] [address] Pharmacist Pharmacy 06/17/21 Lizette Ulloa, ОЛЕГ [address] [place] [address] Primary Care [employer] Technical Systems Specialist Internal Medicine 09/14/21 10/14/21 Kaye rOtega MD [address] [place] [address] General Surgery 09/21/21 [facility] Tube Filler 09/26/17 Territory Outside Sales Manager Relationship Specialty Start Date End Date Daija Morton MD [address] [place] [address] PCP - General Internal Medicine 03/21/17 Beatriz Correa, LAMIN Referring 09/28/20 10/12/21 Daija Morton MD [address] [place] [address] Home Care Physician Internal Medicine 09/28/20 10/12/21 13, Pharmacist [address] [place] [address] Pharmacist Pharmacy 06/17/21 Lizette Ulloa, ОЛЕГ [address] [facility] [place] [address] Primary Care [employer] Technical Systems Specialist Internal Medicine 09/14/21 10/14/21 Kaye Ortega MD [address] [place] [phone] General Surgery 09/21/21 Ye Coello MD [address] [place], [place] [id number] General Surgery 10/13/21 Emilie Jauregui, PA-C [address] [place] [address] Specialty Commercial Tire Service Technician Pulmonary and Critical Care Medicine 10/13/21 Ryan May MD [address] [place] [address] Specialty Commercial Tire Service Technician Vascular Surgery 10/13/21 Geronimo Medina, [address] [address] Motorboat Mechanic Cardiology 10/13/21 Tamika HARRELL Tube Filler 09/26/17 Territory Outside Sales Manager Relationship Specialty Start Date End Date Daija Morton MD [address] [place] [address] PCP - General Internal Medicine 03/21/17 13, Pharmacist 99941 [place] [address] Pharmacist Pharmacy 06/17/21 Lizette Ulloa, ОЛЕГ [address] [place], [place] [id number] Primary Care [employer] Technical Systems Specialist Internal Medicine 09/14/21 10/14/21 Kaye Ortega MD [address] [place] [address] General Surgery 09/21/21 Ye Coello MD [address] [place], [place] [id number] General Surgery 10/13/21 Emilie Jauregui, PA-C [address] [place], [place] [phone] Specialty Commercial Tire Service Technician Pulmonary and Critical Care Medicine 10/13/21 Rayn May MD [address] [place] [address] Specialty Commercial Tire Service Technician Vascular Surgery 10/13/21 Geronimo Medina DO [address] [address] Motorboat Mechanic Cardiology 10/13/21 Tamika HARRELL Tube Filler 09/26/17 Territory Outside Sales Manager Relationship Specialty Start Date End Date Daija Morton MD [address] [place], [place] 771431 PCP - General Internal Medicine 03/21/17 Beatriz Correa, CHANNEL MAN Referring 09/28/20 10/12/21 Daija Morton MD [address] [place], [place] 135201 Home Care Physician Internal Medicine 09/28/20 10/12/21 13, Pharmacist [address] [place] [address] Pharmacist Pharmacy 06/17/21 Lizette Ulloa, ОЛЕГ [address] [place], [place] 3160395 Primary Care [employer] Technical Systems Specialist Internal Medicine 09/14/21 10/14/21 Kaye Ortega MD [address] [place] [address] General Surgery 09/21/21 Ye Coello MD [address] [place], [place] [id number] General Surgery 10/13/21 Emilie Jauregui PA-C [address] [place], [place] [id number] Specialty Commercial Tire Service Technician Pulmonary and Critical Care Medicine 10/13/21 Ryan May MD [address] [place] [address] Specialty Commercial Tire Service Technician Vascular Surgery 10/13/21 Geronimo Medina DO [address] [address] Motorboat Mechanic Cardiology 10/13/21 Tamika Almaguer [employer] Tube Filler 09/26/17 Territory Outside Sales Manager Relationship Specialty Start Date End Date Daija Morton MD [address] [place] [address] PCP - General Internal Medicine 03/21/17 13, Pharmacist [address] [place] [address] Pharmacist Pharmacy 06/17/21 Lizette Ulloa, RN [address] [place] [address] Primary Care Aviation Technical Systems Specialist Internal Medicine 09/14/21 10/14/21 Kaye Ortega MD [address] [place] [phone] General Surgery 09/21/21 Ye Coello MD [address] [place], [place] [id number] General Surgery 10/13/21 Emilie Jauregui PA-C [address] [place] [address] Specialty Commercial Tire Service Technician Pulmonary and Critical Care Medicine 10/13/21 Ryan May MD [address] [place] [address] Specialty Commercial Tire Service Technician Vascular Surgery 10/13/21 Geronimo Medina, DO [address] [id number] Motorboat Mechanic Cardiology 10/13/21 Tamika Almaguer [facility] Tube Filler 09/26/17 Territory Outside Sales Manager Relationship Specialty Start Date End Date Daija Morton MD [address] [place] [address] PCP - General Internal Medicine 03/21/17 13, Pharmacist [address] [place] [address] Pharmacist Pharmacy 06/17/21 Kaye Ortega MD [address] [place] [phone] General Surgery 09/21/21 Ye Coello MD [address] [place], [place] [id number] General Surgery 10/13/21 Emilie Jauregui PA-C [address] [place], [place] 121741 Specialty Commercial Tire Service Technician Pulmonary and Critical Care Medicine 10/13/21 Ryan May MD [address] [place], [place] 31223[address] Specialty Commercial Tire Service Technician Vascular Surgery 10/13/21 Geronimo Medina DO [address] [address] Motorboat Mechanic Cardiology 10/13/21 Tamika Almaguer [facility] Tube Filler 09/26/17 Territory Outside Sales Manager Relationship Specialty Start Date End Date Daija Morton MD [address] [place] [address] PCP - General Internal Medicine 03/21/17 13, Pharmacist [address] [place] [address] Pharmacist Pharmacy 06/17/21 Kaye Ortega MD [address] [place] [address] General Surgery 09/21/21 Ye Coello MD [address] [place], [place] [id number] General Surgery 10/13/21 Emilie Jauregui PA-C [address] [place] [address] Specialty Commercial Tire Service Technician Pulmonary and Critical Care Medicine 10/13/21 Ryan Mya MD [address] [place] [address] Specialty Commercial Tire Service Technician Vascular Surgery 10/13/21 Geronimo Medina DO [address] [address] Motorboat Mechanic Cardiology 10/13/21 Tamika Almaguer PASSANYI Tube Filler 09/26/17 Territory Outside Sales Manager Relationship Specialty Start Date End Date Daija Morton MD [address] [place] [address] PCP - General Internal Medicine 03/21/17 13, Pharmacist [address] [place] [address] Pharmacist Pharmacy 06/17/21 Kaye Ortega MD [address] [place] [address] General Surgery 09/21/21 Ye Coello MD [address] [place] [address] General Surgery 10/13/21 Emilie Jauregui PA-C [address] [place] [address] Specialty Commercial Tire Service Technician Pulmonary and Critical Care Medicine 10/13/21 Ryan May MD [address] [place] [address] Specialty Commercial Tire Service Technician Vascular Surgery 10/13/21 Geronimo Medina DO [address] [address] Motorboat Mechanic Cardiology 10/13/21 Tamika HARRELL Tube Filler 09/26/17 Territory Outside Sales Manager Relationship Specialty Start Date End Date Daija Morton MD [address] [place] [address] PCP - General Internal Medicine 03/21/17 13, Pharmacist [address] [place] [address] Pharmacist Pharmacy 06/17/21 Kaye Ortega MD [address] [place] [phone] General Surgery 09/21/21 Ye Coello MD [address] [place], [place] [id number] General Surgery 10/13/21 Emilie Jauregui PAAshtyn [address] [place], [place] 628981 Specialty Commercial Tire Service Technician Pulmonary and Critical Care Medicine 10/13/21 Ryan May MD [address] [place] [address] Specialty Commercial Tire Service Technician Vascular Surgery 10/13/21 Geronimo Medina DO [address] [id number] Motorboat Mechanic Cardiology 10/13/21 Tamika Almaguer [facility] Tube Filler 09/26/17 Territory Outside Sales Manager Relationship Specialty Start Date End Date Daija Morton MD [address] [place], [place] [id number] [phone] PCP - General Internal Medicine 03/21/17 13, Pharmacist [address] [place] [address] Pharmacist Pharmacy 06/17/21 Kaye Ortega MD [address] [place] [phone] General Surgery 09/21/21 Ye Coello MD [address] [place], [place] [id number] General Surgery 10/13/21 Emilie Jauregui PA-C [address] [place] [address] Specialty Commercial Tire Service Technician Pulmonary and Critical Care Medicine 10/13/21 Ryan May MD [address] [place], [place] 1818395 Specialty Commercial Tire Service Technician Vascular Surgery 10/13/21 Geronimo Medina, DO [address] [address] Motorboat Mechanic Cardiology 10/13/21 Tamika Canales [facility] Tube Filler 09/26/17 Territory Outside Sales Manager Relationship Specialty Start Date End Date Daija Morton MD [address] [place] [address] PCP - General Internal Medicine 03/21/17 13, Pharmacist [address] [place] [address] Pharmacist Pharmacy 06/17/21 Kaye Ortega MD [address] [place] [address] General Surgery 09/21/21 Ye Coello MD [address] [place] [address] General Surgery 10/13/21 Emilie Jauregui PA-C [address] [place] [address] Specialty Commercial Tire Service Technician Pulmonary and Critical Care Medicine 10/13/21 Ryan May MD [address]69 [place] [address] Specialty Commercial Tire Service Technician Vascular Surgery 10/13/21 Geronimo Medina DO [address] [address] Motorboat Mechanic Cardiology 10/13/21 Tamika Almaguer [employer] Tube Filler 09/26/17 Territory Outside Sales Manager Relationship Specialty Start Date End Date Daija Morton MD [address] [place], [place] 634931 PCP - General Internal Medicine 03/21/17 13, Pharmacist 86943 [place] [address] Pharmacist Pharmacy 06/17/21 Kaye Ortega MD [address] [place] [phone] General Surgery 09/21/21 Ye Coello MD [address] [place], [place] [id number] General Surgery 10/13/21 Emilie Jauregui PA-C [address] [place], [place] 868641 Specialty Commercial Tire Service Technician Pulmonary and Critical Care Medicine 10/13/21 Ryan May MD [address] [place], [place] 2391895 Specialty Commercial Tire Service Technician Vascular Surgery 10/13/21 Geronimo Medina, [address] [address] Motorboat Mechanic Cardiology 10/13/21 Tamika Almaguer [employer] Tube Filler 09/26/17 Territory Outside Sales Manager Relationship Specialty Start Date End Date Daija Morton MD [address] [place], [place] [id number] PCP - General Internal Medicine 03/21/17 13, Pharmacist [address]29 [place] [address] Pharmacist Pharmacy 06/17/21 Kaye Ortega MD [address] [place] [address] General Surgery 09/21/21 Ye Coello MD [address] [place], [place] 255825 General Surgery 10/13/21 Emilie Jauregui PA-C [address] [place], [place] 970031 Specialty Commercial Tire Service Technician Pulmonary and Critical Care Medicine 10/13/21 Ryan May MD [address] [place], [place] 2471095 Specialty Commercial Tire Service Technician Vascular Surgery 10/13/21 Geronimo Medina DO [address] [address] Motorboat Mechanic Cardiology 10/13/21 Tamika Canales Tripp [facility] Tube Filler 09/26/17 Territory Outside Sales Manager Relationship Specialty Start Date End Date Daija Morton MD [address] [place] [address] PCP - General Internal Medicine 03/21/17 13, Pharmacist [address] [place] [address] Pharmacist Pharmacy 06/17/21 Kaye Ortega MD [address] [place] [phone] General Surgery 09/21/21 Ye Coello MD [address] [place], [place] [id number] General Surgery 10/13/21 Emilie Jauregui PA-C [address] [place] [address] Specialty Commercial Tire Service Technician Pulmonary and Critical Care Medicine 10/13/21 Ryan May MD [address] [place] [address] Specialty Commercial Tire Service Technician Vascular Surgery 10/13/21 Geronimo Medina DO [address] [address] Motorboat Mechanic Cardiology 10/13/21 Tamika HARRELL Tube Filler 09/26/17 Territory Outside Sales Manager Relationship Specialty Start Date End Date Daija Morton MD [address] [place] [address] PCP - General Internal Medicine 03/21/17 13, Pharmacist [address] [place] [address] Pharmacist Pharmacy 06/17/21 Kaye Ortega MD [address] [place] [address] General Surgery 09/21/21 Ye oCello MD [address] [place] [address] General Surgery 10/13/21 Emilie Jauregui PA-C [address] [place] [address] Specialty Commercial Tire Service Technician Pulmonary and Critical Care Medicine 10/13/21 Ryan May MD [address] [place] [address] Specialty Commercial Tire Service Technician Vascular Surgery 10/13/21 Geronimo Medina DO [address] [address] Motorboat Mechanic Cardiology 10/13/21 Tamika HARRELL Tube Filler 09/26/17 Territory Outside Sales Manager Relationship Specialty Start Date End Date Daija Morton MD [address] [place] [address] PCP - General Internal Medicine 03/21/17 13, Pharmacist [address] [place] [address] Pharmacist Pharmacy 06/17/21 Kaye Ortega MD [address] [place] [phone] General Surgery 09/21/21 Ye Coello MD [address] [place], [place] [id number] General Surgery 10/13/21 Emilie Jauregui PA-C [address] [place] [address] Specialty Commercial Tire Service Technician Pulmonary and Critical Care Medicine 10/13/21 Ryan May MD [address] [place] [address] Specialty Commercial Tire Service Technician Vascular Surgery 10/13/21 Geronimo Medina DO [address] [address] Motorboat Mechanic Cardiology 10/13/21 Tamika Almaguer [facility] Tube Filler 09/26/17 Territory Outside Sales Manager Relationship Specialty Start Date End Date Daija Morton MD [address] [place] [address] PCP - General Internal Medicine 03/21/17 13, Pharmacist [address] [place] [address] Pharmacist Pharmacy 06/17/21 Kaye Ortega MD [address] [place] [phone] General Surgery 09/21/21 Ye Coello MD [address] [place], [place] [id number] General Surgery 10/13/21 Emilie Jauregui, PA-C [address] [place] [address] Specialty Commercial Tire Service Technician Pulmonary and Critical Care Medicine 10/13/21 Ryan May MD [address] [place], [place] 8511395 Specialty Commercial Tire Service Technician Vascular Surgery 10/13/21 Geronimo Medina DO [address] [address] Motorboat Mechanic Cardiology 10/13/21 Tamika Almaguer [employer] Tube Filler 09/26/17 Territory Outside Sales Manager Relationship Specialty Start Date End Date Daija Morton MD [address] [place] [address] PCP - General Internal Medicine 03/21/17 13, Pharmacist [address] [place] [address] Pharmacist Pharmacy 06/17/21 Kaye Ortega MD [address] [place] [address] General Surgery 09/21/21 Ye Coello MD [address] [place] [address] General Surgery 10/13/21 Emilie Jauregui PA-C [address] [place] [address] Specialty Commercial Tire Service Technician Pulmonary and Critical Care Medicine 10/13/21 Ryan May MD [address] [place] [address] Specialty Commercial Tire Service Technician Vascular Surgery 10/13/21 Geronimo Medina DO [address] [address] Motorboat Mechanic Cardiology 10/13/21 Tamika Almaguer [employer] Tube Filler 09/26/17 Territory Outside Sales Manager Relationship Specialty Start Date End Date Daija Morton MD [address] [place] [address] PCP - General Internal Medicine 03/21/17 13, Pharmacist [address] [place] [address] Pharmacist Pharmacy 06/17/21 Kaye Ortega MD [address] [place] [address] General Surgery 09/21/21 Ye Coello MD [address] [place], [place] [id number] General Surgery 10/13/21 Emilie Jauregui PA-C [address] [place] [address] Specialty Commercial Tire Service Technician Pulmonary and Critical Care Medicine 10/13/21 Ryan May MD [address] [place] [address] Specialty Commercial Tire Service Technician Vascular Surgery 10/13/21 Geronimo Medina DO [address] [address] Motorboat Mechanic Cardiology 10/13/21 Tamika Almaguer [employer] Tube Filler 09/26/17 Territory Outside Sales Manager Relationship Specialty Start Date End Date Daija Morton MD [address] [place] [address] PCP - General Internal Medicine 03/21/17 13, Pharmacist [address] [place] [address] Pharmacist Pharmacy 06/17/21 Kaye Ortega MD [address] [place] [address] General Surgery 09/21/21 Ye Coello MD [address] [place], [place] [id number] General Surgery 10/13/21 Emilie Jauregui PA-C [address] [place], [place] 880451 Specialty Commercial Tire Service Technician Pulmonary and Critical Care Medicine 10/13/21 Ryan May MD [address] [place], [place] 5867095 Specialty Commercial Tire Service Technician Vascular Surgery 10/13/21 Geronimo Medina, [address] [address] Motorboat Mechanic Cardiology 10/13/21 Tamika Canales Tripp [facility] Tube Filler 09/26/17 Territory Outside Sales Manager Relationship Specialty Start Date End Date Daija Morton MD [address] [place] [address] PCP - General Internal Medicine 03/21/17 13, Pharmacist [address] [place] [address] Pharmacist Pharmacy 06/17/21 Kaye Ortega MD [address] [place] [address] General Surgery 09/21/21 Ye Coello MD [address] [place], [place] [id number] General Surgery 10/13/21 Emilie Jauregui PA-C [address] [place] [address] Specialty Commercial Tire Service Technician Pulmonary and Critical Care Medicine 10/13/21 Ryan May MD [address] [place], [place] [id number] Specialty Commercial Tire Service Technician Vascular Surgery 10/13/21 Geronimo Medina DO [address] [address] Motorboat Mechanic Cardiology 10/13/21 Tamika HARRELL Tube Filler 09/26/17 Territory Outside Sales Manager Relationship Specialty Start Date End Date Daija Morton MD [address] [place] [address] PCP - General Internal Medicine 03/21/17 13, Pharmacist [address] [place] [address] Pharmacist Pharmacy 06/17/21 Kaye Ortega MD [address] [place] [address] General Surgery 09/21/21 Ye Coelol MD [address] [place], [place] 721265 General Surgery 10/13/21 Emilie Jauregui PA-C [address] [place], [place] 881281 Specialty Commercial Tire Service Technician Pulmonary and Critical Care Medicine 10/13/21 Ryan May MD [address] [place] [address] Specialty Commercial Tire Service Technician Vascular Surgery 10/13/21 Geronimo Medina DO [address] [address] Motorboat Mechanic Cardiology 10/13/21 Tamika HARRELL Tube Filler 09/26/17 Territory Outside Sales Manager Relationship Specialty Start Date End Date Daija Morton MD [address] [place] [address] PCP - General Internal Medicine 03/21/17 13, Pharmacist [address] [place] [address] Pharmacist Pharmacy 06/17/21 Kaye Ortega MD [address] [place] [address] General Surgery 09/21/21 Ye Coello MD [address] [place] [id number] General Surgery 10/13/21 Emilie Jauregui PA-C [address] [place] [address] Specialty Commercial Tire Service Technician Pulmonary and Critical Care Medicine 10/13/21 Ryan May MD [address] [place] [address] Specialty Commercial Tire Service Technician Vascular Surgery 10/13/21 Geronimo Medina DO [address] [address] Motorboat Mechanic Cardiology 10/13/21 Tamika Almaguer [facility] Tube Filler 09/26/17 Territory Outside Sales Manager Relationship Specialty Start Date End Date Daija Morton MD [address] [place] [address] PCP - General Internal Medicine 03/21/17 13, Pharmacist [id number] [place] [address] Pharmacist Pharmacy 06/17/21 Kaey Ortega MD [address] [place] [address] General Surgery 09/21/21 Ye Coello MD [address] [place], [place] [id number] General Surgery 10/13/21 Emilie Jauregui PA-C [address] [place] [address] Specialty Commercial Tire Service Technician Pulmonary and Critical Care Medicine 10/13/21 Ryan May MD [address] [facility] [place] [place] [address] Specialty Commercial Tire Service Technician Vascular Surgery 10/13/21 Geronimo Medina, DO [address] [address] Motorboat Mechanic Cardiology 10/13/21 Tamika HARRELL Tube Filler 09/26/17 Territory Outside Sales Manager Relationship Specialty Start Date End Date Daija Morton MD [address] [place] [address] PCP - General Internal Medicine 03/21/17 13, Pharmacist [address] [place] [address] Pharmacist Pharmacy 06/17/21 Kaye Ortega MD [address] [place] [address] General Surgery 09/21/21 Ye Coello MD [address] [place] [address] General Surgery 10/13/21 Emilie Jauregui, PA-C [address] [place] [address] Specialty Commercial Tire Service Technician Pulmonary and Critical Care Medicine 10/13/21 Ryan May MD [address] [facility] [place] [address] Specialty Commercial Tire Service Technician Vascular Surgery 10/13/21 Geronimo Medina, DO [address] [address] Motorboat Mechanic Cardiology 10/13/21 Tamika HARRELL Tube Filler 09/26/17 Territory Outside Sales Manager Relationship Specialty Start Date End Date Daija Morton MD [address] [place] [address] PCP - General Internal Medicine 03/21/17 13, Pharmacist [phone] [place] [address] Pharmacist Pharmacy 06/17/21 Kaye Ortega MD [address] [place] [address] General Surgery 09/21/21 Ye Coello MD [address] [place], [place] [id number] General Surgery 10/13/21 Emilie Jauregui PA-C [address] [place] [address] Specialty Commercial Tire Service Technician Pulmonary and Critical Care Medicine 10/13/21 Ryan May MD [address] [place] [address] Specialty Commercial Tire Service Technician Vascular Surgery 10/13/21 Geronimo Medina, DO [address] [address] Motorboat Mechanic Cardiology 10/13/21 Tamika HARRELL Tube Filler 09/26/17 Territory Outside Sales Manager Relationship Specialty Start Date End Date Daija Morton MD [address] [place] [address] PCP - General Internal Medicine 03/21/17 13, Pharmacist [address] [place] [address] Pharmacist Pharmacy 06/17/21 Kaye Ortega MD [address] [place] [address] General Surgery 09/21/21 Ye Coello MD [address] [place] [address] General Surgery 10/13/21 Emilie Jauregui PA-C [address] [place] [address] Specialty Commercial Tire Service Technician Pulmonary and Critical Care Medicine 10/13/21 Ryan May MD [address] [place] [address] Specialty Commercial Tire Service Technician Vascular Surgery 10/13/21 Geronimo Medina DO [address] [id number] Motorboat Mechanic Cardiology 10/13/21 Tamika Almaguer [facility] Tube Filler 09/26/17 Territory Outside Sales Manager Relationship Specialty Start Date End Date Daija Morton MD [address] [place] [address] PCP - General Internal Medicine 03/21/17 13, Pharmacist [address] [place] [address] Pharmacist Pharmacy 06/17/21 Kaye Ortega MD [address] [place] [address] General Surgery 09/21/21 Ye Coello MD [address] [place] [address] General Surgery 10/13/21 Emilie Jauregui PA-C [address] [place] [address] Specialty Commercial Tire Service Technician Pulmonary and Critical Care Medicine 10/13/21 Ryan May MD [address] [place], [place] 4069595 Specialty Commercial Tire Service Technician Vascular Surgery 10/13/21 Geronimo Medina DO [address] [address] Motorboat Mechanic Cardiology 10/13/21 Tamika HARRELL Tube Filler 09/26/17 Territory Outside Sales Manager Relationship Specialty Start Date End Date Daija Morton MD [address] [place] [address] PCP - General Internal Medicine 03/21/17 13, Pharmacist [address] [place] [address] Pharmacist Pharmacy 06/17/21 Kaye Ortega MD [address] [place] [address] General Surgery 09/21/21 Ye Coello MD [address] [place], [place] 107675 General Surgery 10/13/21 Emilie Jauregui PA-C [address] [place] [address] Specialty Commercial Tire Service Technician Pulmonary and Critical Care Medicine 10/13/21 Ryan May MD [address] [place] [address] Specialty Commercial Tire Service Technician Vascular Surgery 10/13/21 Geronimo Medina DO [address] [address] Motorboat Mechanic Cardiology 10/13/21 Tamika HARRELL Tube Filler 09/26/17 Territory Outside Sales Manager Relationship Specialty Start Date End Date Daija Morton MD [address] [place] [address] PCP - General Internal Medicine 03/21/17 13, Pharmacist [phone] [place] [address] Pharmacist Pharmacy 06/17/21 Kaye Ortega MD [address] [place] [address] General Surgery 09/21/21 Ye Coello MD [address] [place], [place] [id number] General Surgery 10/13/21 Emilie Jauregui PA-C [address] [place], [place] 283461 [phone] Specialty Commercial Tire Service Technician Pulmonary and Critical Care Medicine 10/13/21 Ryan May MD [address] [facility] [place], [place] [address] Specialty Commercial Tire Service Technician Vascular Surgery 10/13/21 Geronimo Medina DO [address] [id number] Motorboat Mechanic Cardiology 10/13/21 Tamika Almaguer [facility] Tube Filler 09/26/17 Territory Outside Sales Manager Relationship Specialty Start Date End Date Daija Morton MD [address] [place] [address] PCP - General Internal Medicine 03/21/17 13, Pharmacist [phone] [place] [address] Pharmacist Pharmacy 06/17/21 Kaye Ortega MD [address] [place] [address] General Surgery 09/21/21 Ye Coello MD [address] [place], [place] [id number] General Surgery 10/13/21 Emilie Jauregui PA-C [address] [place] [address] Specialty Commercial Tire Service Technician Pulmonary and Critical Care Medicine 10/13/21 Ryan May MD [address] [place] [address] Specialty Commercial Tire Service Technician Vascular Surgery 10/13/21 Geronimo Medina DO [address] [address] Motorboat Mechanic Cardiology 10/13/21 Tamika HARRELL Tube Filler 09/26/17 Territory Outside Sales Manager Relationship Specialty Start Date End Date Daija Morton MD [address] [place], [place] 086941 PCP - General Internal Medicine 03/21/17 13, Pharmacist [phone] [place] [address] Pharmacist Pharmacy 06/17/21 Kaye Ortega MD [address] [place] [address] General Surgery 09/21/21 Ye Coello MD [address] [place], [place] 220385 General Surgery 10/13/21 Emilie Jauregui PA-C [address] [place] [address] Specialty Commercial Tire Service Technician Pulmonary and Critical Care Medicine 10/13/21 Ryan May MD [address] [place] [address] Specialty Commercial Tire Service Technician Vascular Surgery 10/13/21 Geronimo Medina DO [address] [address] Motorboat Mechanic Cardiology 10/13/21 Tamika HARRELL Tube Filler 09/26/17 Territory Outside Sales Manager Relationship Specialty Start Date End Date Daija Morton MD [address] [place], [place] [address]78111 PCP - General Internal Medicine 03/21/17 13, Pharmacist [phone] [place] [address] Pharmacist Pharmacy 06/17/21 04/12/22 Kaye Ortega MD [address] [place] [address] General Surgery 09/21/21 Ye Coello MD [address] [place], [place] 032015 General Surgery 10/13/21 Emilie Jauregui PA-C [address] [place], [place] [id number] Specialty Commercial Tire Service Technician Pulmonary and Critical Care Medicine 10/13/21 Ryan May MD [address] [place], [place] [address]570095 Specialty Commercial Tire Service Technician Vascular Surgery 10/13/21 Geronimo Medina, DO [address] [id number] Motorboat Mechanic Cardiology 10/13/21 Tamika Almaguer [facility] Tube Filler 09/26/17 Team Status: Active Member Role Status [...] Provider Active Андрей Cooley Attending Provider Active Territory Outside Sales Manager Relationship Specialty Start Date End Date Daija Morton MD [address] [place], [place] [id number] PCP - General Internal Medicine 03/21/17 Kaye Ortega MD [address] [place] [address] General Surgery 09/21/21 Ye Coello MD [address] [place] [address] General Surgery 10/13/21 Emilie Jauregui PA-C [address] [place] [address] Specialty Commercial Tire Service Technician Pulmonary and Critical Care Medicine 10/13/21 Ryan May MD [address] [place], [place] [address] Specialty Commercial Tire Service Technician Vascular Surgery 10/13/21 Geronimo Medina, [address] [address] Motorboat Mechanic Cardiology 10/13/21 Tamika Almaguer [facility] Tube Filler 09/26/17 Territory Outside Sales Manager Relationship Specialty Start Date End Date Daija Morton MD [address] [place] [address] PCP - General Internal Medicine 03/21/17 Kaye Ortega MD [address] [place] [address] General Surgery 09/21/21 Ye Coello MD [address] [place] [address] General Surgery 10/13/21 Emilie Jauregui PA-C [address] [place] [address] Specialty Commercial Tire Service Technician Pulmonary and Critical Care Medicine 10/13/21 Ryan May MD [address] [place] [place], [place] 0908595 Specialty Commercial Tire Service Technician Vascular Surgery 10/13/21 Geronimo Medina DO [address] [address] Motorboat Mechanic Cardiology 10/13/21 Tamika HARRELL Tube Filler 09/26/17 Territory Outside Sales Manager Relationship Specialty Start Date End Date Daija Morton MD [address] [place] [address] PCP - General Internal Medicine 03/21/17 Kaye Ortega MD [address] [place] [address] General Surgery 09/21/21 Ye Coello MD [address] [place], [place] 714025 General Surgery 10/13/21 Emilie Jauregui PA-C [address] [place] [address] Specialty Commercial Tire Service Technician Pulmonary and Critical Care Medicine 10/13/21 Ryan May MD [address] [place], [place] 1485095 Specialty Commercial Tire Service Technician Vascular Surgery 10/13/21 Geronimo Medina DO [address] [address] Motorboat Mechanic Cardiology 10/13/21 Tamika HARRELL Tube Filler 09/26/17 Territory Outside Sales Manager Relationship Specialty Start Date End Date Daija Morton MD [address] [place] [address] PCP - General Internal Medicine 03/21/17 Kaye Ortega MD [address] [place] [address] General Surgery 09/21/21 Ye Coello MD [address] [place], [place] 858465 General Surgery 10/13/21 Emilie Jauregui PA-C [address] [place] [address] Specialty Commercial Tire Service Technician Pulmonary and Critical Care Medicine 10/13/21 Ryan May MD [address] [place], [place] 5234895 Specialty Commercial Tire Service Technician Vascular Surgery 10/13/21 Geronimo Medina DO [address] [id number] Motorboat Mechanic Cardiology 10/13/21 Tamika Almaguer [facility] Tube Filler 09/26/17 Territory Outside Sales Manager Relationship Specialty Start Date End Date Daija Morton MD [address] [place] [address] PCP - General Internal Medicine 03/21/17 Kaye Ortega MD [address] [place] [address] General Surgery 09/21/21 Ye Coello MD [address] [place] [address] General Surgery 10/13/21 Emilie Jauregui PA-C [address] [place] [address] Specialty Commercial Tire Service Technician Pulmonary and Critical Care Medicine 10/13/21 Ryan May MD [address] [place], [place] 5010395 Specialty Commercial Tire Service Technician Vascular Surgery 10/13/21 Geronimo Medina DO [address] [id number] Motorboat Mechanic Cardiology 10/13/21 Tamika Almaguer [employer] Tube Filler 09/26/17 Territory Outside Sales Manager Relationship Specialty Start Date End Date Daija Morton MD [address] [facility] [place] [address] PCP - General Internal Medicine 03/21/17 Kaye Ortega MD [address] [facility] [place] [address] General Surgery 09/21/21 Ye Coello MD [address] [place], [place] [address] General Surgery 10/13/21 Emilie Jauregui PA-C [address] [place] [address] Specialty Commercial Tire Service Technician Pulmonary and Critical Care Medicine 10/13/21 Ryan May MD [address] [place] [address] Specialty Commercial Tire Service Technician Vascular Surgery 10/13/21 Geronimo Medina, DO [address] [address] Motorboat Mechanic Cardiology 10/13/21 Tamika Almaguer [employer] Tube Filler 09/26/17 Territory Outside Sales Manager Relationship Specialty Start Date End Date Daija Morton MD [address] [place] [address] PCP - General Internal Medicine 03/21/17 Kaye Ortega MD [address] [facility] [place] [address] General Surgery 09/21/21 Ye Coello MD [address] [place], [place] [address] [phone] General Surgery 10/13/21 Emilie Jauregui PA-C [address] [place] [address] Specialty Commercial Tire Service Technician Pulmonary and Critical Care Medicine 10/13/21 Ryan May MD [address] [place], [place] 62538[address] Specialty Commercial Tire Service Technician Vascular Surgery 10/13/21 Geronimo Medina, DO [address] [address] Motorboat Mechanic Cardiology 10/13/21 Tamika HARRELL Tube Filler 09/26/17 Territory Outside Sales Manager Relationship Specialty Start Date End Date Daija Morton MD [address] [place] [address] PCP - General Internal Medicine 03/21/17 Kaye Ortega MD [address] [place] [address] General Surgery 09/21/21 Ye Coello MD [address] [place] [address] General Surgery 10/13/21 Emilie Jauregui PA-C [address] [place] [address] Specialty Commercial Tire Service Technician Pulmonary and Critical Care Medicine 10/13/21 Ryan May MD [address] [place] [address] Specialty Commercial Tire Service Technician Vascular Surgery 10/13/21 Geronimo Medina, DO [address] [address] Motorboat Mechanic Cardiology 10/13/21 Tamika HARRELL Tube Filler 09/26/17 Team Status: Inactive Member Role Status Dates Dr. Daija Morton MD Primary Care Provider Active Андрей RAIN Attending Provider Active Team Status: Inactive Member Role Status Dates Dr. Daija Morton MD Primary Care Provider Active Dr. Jaden Jauregui MD Emergency Provider Active Territory Outside Sales Manager Relationship Specialty Start Date End Date Daija Morton MD [address] [place] [address] PCP - General Internal Medicine 03/21/17 Kaye Ortega MD [address] [place] [address] General Surgery 09/21/21 Ye Coello MD [address] [place], [place] 059875 General Surgery 10/13/21 Emilie Jauregui PA-C [address] [place] [address] Specialty Commercial Tire Service Technician Pulmonary and Critical Care Medicine 10/13/21 Ryan May MD [address] [place] [address] Specialty Commercial Tire Service Technician Vascular Surgery 10/13/21 Geronimo Medina DO [address] [address] Motorboat Mechanic Cardiology 10/13/21 Tamika Almaguer [employer] Tube Filler 09/26/17 Territory Outside Sales Manager Relationship Specialty Start Date End Date Daija Morton MD [address] [place] [address] PCP - General Internal Medicine 03/21/17 Kaye Ortega MD [address] [place] [address] General Surgery 09/21/21 Ye Coello MD [address] [place] [address] General Surgery 10/13/21 Emilie Jauregui PA-C [address] [place] [address] Specialty Commercial Tire Service Technician Pulmonary and Critical Care Medicine 10/13/21 Ryan May MD [address] [place] [address] Specialty Commercial Tire Service Technician Vascular Surgery 10/13/21 Geronimo Medina DO [address] [address] Motorboat Mechanic Cardiology 10/13/21 [facility] Tube Filler 09/26/17 Team Status: Inactive Member Role Status Dates Dr. Daija Morton MD Primary Care Provider Active Dr. Jaden Jauregui MD Attending Provider, Emergency Provider Active Team Status: Inactive Member Role Status Dates Dr. Daija Morton MD Primary Care Provider Active Dr. Huber Alvarado MD Emergency Provider Active Territory Outside Sales Manager Relationship Specialty Start Date End Date Daija Morton MD [address] [place] [address] PCP - General Internal Medicine 03/21/17 Kaye Ortega MD [address] [place] [address] General Surgery 09/21/21 Ye Coello MD [address] [place], [place] 255305 General Surgery 10/13/21 Emilie Jauregui PA-C [address] [facility] [place], [place] [address] Specialty Commercial Tire Service Technician Pulmonary and Critical Care Medicine 10/13/21 Ryan May MD [address] [place] [address] Specialty Commercial Tire Service Technician Vascular Surgery 10/13/21 Geronimo Medina DO [address] [address] Motorboat Mechanic Cardiology 10/13/21 Tamika Almaguer [facility] Tube Filler 09/26/17 Team Status: Inactive Member Role Status Dates Dr. Daija Morton MD Primary Care Provider Active Dr. Huber Alvarado MD Attending Provider, Emergency Provider Active Territory Outside Sales Manager Relationship Specialty Start Date End Date Daija Morton MD [address] [place], [place] [address] PCP - General Internal Medicine 03/21/17 Kaye Ortega MD [address] [facility] [place] [address] General Surgery 09/21/21 Ye Coello MD [address] [place], [place] [address]28[address] General Surgery 10/13/21 Emilie Jauregui PA-C [address] [facility] [place], [place] [address] Specialty Commercial Tire Service Technician Pulmonary and Critical Care Medicine 10/13/21 Ryan May MD [address] [place] [address] Specialty Commercial Tire Service Technician Vascular Surgery 10/13/21 Geronimo Medina DO [address] [address] Motorboat Mechanic Cardiology 10/13/21 Tamika Almaguer [facility] Tube Filler 09/26/17 Team Status: Active Member Role Status [...] MD Admit Provider, Attending Pro vider Active Territory Outside Sales Manager Relationship Specialty Start Date End Date Daija Morton MD [address] [place], [place] 545391 PCP - General Internal Medicine 03/21/17 Kaye Ortega MD [address] [facility] [place] [address] General Surgery 09/21/21 Ye Coello MD [address] [place] [address] General Surgery 10/13/21 Emilie Jauregui PA-C [address] [facility] [place], [place] [address] Specialty Commercial Tire Service Technician Pulmonary and Critical Care Medicine 10/13/21 Ryan May MD [address] [place] [address] Specialty Commercial Tire Service Technician Vascular Surgery 10/13/21 Geronimo Medina DaishaDO [address] [address] Motorboat Mechanic Cardiology 10/13/21 Tamika Almaguer [facility] Tube Filler 09/26/17 Team Status: Active Member Role Status [...] Dr. Elton Moore MD Other Provider Active Territory Outside Sales Manager Relationship Specialty Start Date End Date Daija Morton MD [address] [place] [address] PCP - General Internal Medicine 03/21/17 Kaye Ortega MD [address] [place] [address] General Surgery 09/21/21 Ye Coello MD [address] [place], [place] 043085 General Surgery 10/13/21 Emilie Jauregui PA-C [address] [place], [place] 865271 Specialty Commercial Tire Service Technician Pulmonary and Critical Care Medicine 10/13/21 Ryan May MD [address] [place] [address] Specialty Commercial Tire Service Technician Vascular Surgery 10/13/21 Geronimo Medina DO [address] [address] Motorboat Mechanic Cardiology 10/13/21 Tamika Almaguer [facility] Tube Filler 09/26/17 Territory Outside Sales Manager Relationship Specialty Start Date End Date Daija Morton MD [address] [place], [place] 116921 PCP - General Internal Medicine 03/21/17 Kaye Ortega MD [address] [place] [address] General Surgery 09/21/21 Ye Coello MD [address] [place], [place] 205[address] General Surgery 10/13/21 Emilie Jauregui PA-C [address] [place] [address] Specialty Commercial Tire Service Technician Pulmonary and Critical Care Medicine 10/13/21 Ryan May MD [address] [place] [address] Specialty Commercial Tire Service Technician Vascular Surgery 10/13/21 Geronimo Medina DO [address] [place] [address] Motorboat Mechanic Cardiology 10/13/21 Tamika Almaguer [facility] Tube Filler 09/26/17 Territory Outside Sales Manager Relationship Specialty Start Date End Date Daija Morton MD [address] [place], [place] 615161 PCP - General Internal Medicine 03/21/17 Kaye Ortega MD [address] [place] [address] General Surgery 09/21/21 Ye Coello MD [address] [place] [address] General Surgery 10/13/21 Emilie Jauregui PA-C [address] [facility] [place] [address] Specialty Commercial Tire Service Technician Pulmonary and Critical Care Medicine 10/13/21 Ryan May MD [address] [place] [address] Specialty Commercial Tire Service Technician Vascular Surgery 10/13/21 Geronimo Medina DO [address] [place] [address] Motorboat Mechanic Cardiology 10/13/21 Tamika Almaguer [facility] Tube Filler 09/26/17 Team Status: Inactive Member Role Status [...] Provi ashley, Attending Provider, Referring Provider Active Territory Outside Sales Manager Relationship Specialty Start Date End Date Daija Morton MD [address] [place], [place] [id number] PCP - General Internal Medicine 03/21/17 Kaye Ortega MD [address] [place] [address] General Surgery 09/21/21 Ye Coello MD [address] [place] [address] General Surgery 10/13/21 Emilie Jauregui PA-C [address] [place], [place] 695311 Specialty Commercial Tire Service Technician Pulmonary and Critical Care Medicine 10/13/21 Ryan May MD [address] [facility] [place] [address] Specialty Commercial Tire Service Technician Vascular Surgery 10/13/21 Geronimo Medina DO [address] [place] [address] Motorboat Mechanic Cardiology 10/13/21 Tamika Almaguer [employer] Tube Filler 09/26/17 Team Status: Active Member Role Status [...] Provider A ctive Dr. Roman Patel , Attending Provider, Other Provider Active Team Status: [...] Dr. Ryan Guerin DO Attending Provider Active Territory Outside Sales Manager Relationship Specialty Start Date End Date Daija Morton MD [address] [place] [address] PCP - General Internal Medicine 03/21/17 Kaye Ortega MD [address] [place] [address] General Surgery 09/21/21 Ye Coello MD [address] [place], [place] [address] General Surgery 10/13/21 Emilie Jauregui PA-C [address] [place] [address] Specialty Commercial Tire Service Technician Pulmonary and Critical Care Medicine 10/13/21 Ryan May MD [address] [place] [address] Specialty Commercial Tire Service Technician Vascular Surgery 10/13/21 Geronimo Medina DO [address] [place] [address] Motorboat Mechanic Cardiology 10/13/21 Tamika Almaguer [facility] Tube Filler 09/26/17 Territory Outside Sales Manager Relationship Specialty Start Date End Date Daija Morton MD [address] [place] [address] PCP - General Internal Medicine 03/21/17 Kaye Ortega MD [address] [place] [address] General Surgery 09/21/21 Ye Coello MD [address] [place] [address] General Surgery 10/13/21 Emilie Jauregui PA-C [address] [facility] [place] [address] Specialty Commercial Tire Service Technician Pulmonary and Critical Care Medicine 10/13/21 Ryan May MD [address] [place] [address] Specialty Commercial Tire Service Technician Vascular Surgery 10/13/21 Geronimo Medina DO [address] [place] [address] Motorboat Mechanic Cardiology 10/13/21 Tamika Almaguer [facility] Tube Filler 09/26/17 Territory Outside Sales Manager Relationship Specialty Start Date End Date Daija Morton MD [address] [place], [place] 402151 PCP - General Internal Medicine 03/21/17 Kaye Ortega MD [address] [place] [address] General Surgery 09/21/21 Ye Coello MD [address] [place], [place] 872845 General Surgery 10/13/21 Emilie Jauregui PA-C [address] [facility] [place] [address] Specialty Commercial Tire Service Technician Pulmonary and Critical Care Medicine 10/13/21 Ryan May MD [address] [place] [address] Specialty Commercial Tire Service Technician Vascular Surgery 10/13/21 Geronimo Medina DO [address] [place] [address] Motorboat Mechanic Cardiology 10/13/21 Tamika HARRELL Tube Filler 09/26/17 Territory Outside Sales Manager Relationship Specialty Start Date End Date Daija Morton MD [address] [place], [place] [address]61 PCP - General Internal Medicine 03/21/17 Kaye Ortega MD [address] [place] [address] General Surgery 09/21/21 Ye Coello MD [address] [place], [place] [address]25[address] General Surgery 10/13/21 Emilie Jauregui PANeshaC [address] [place] [address] Specialty Commercial Tire Service Technician Pulmonary and Critical Care Medicine 10/13/21 Ryan May MD [address] [place] [address] Specialty Commercial Tire Service Technician Vascular Surgery 10/13/21 Geronimo Medina DO [address] [place] [address] Motorboat Mechanic Cardiology 10/13/21 Tamika HARRELL Tube Filler 09/26/17 Territory Outside Sales Manager Relationship Specialty Start Date End Date Daija Morton MD [address] [place] [address] PCP - General Internal Medicine 03/21/17 Kaye Ortega MD [address] [place] [address] General Surgery 09/21/21 Ye Coello MD [address] [place] [address] General Surgery 10/13/21 Emilie Jauregui PA-C [address] [place] [address] Specialty Commercial Tire Service Technician Pulmonary and Critical Care Medicine 10/13/21 Ryan May MD [address] [facility] [place] [address] Specialty Commercial Tire Service Technician Vascular Surgery 10/13/21 Geronimo Medina DO [address] [place] [address] Motorboat Mechanic Cardiology 10/13/21 Tamika Canales Tripp [facility] Tube Filler 09/26/17 Territory Outside Sales Manager Relationship Specialty Start Date End Date Daija Morton MD [address] [place], [place] 857249 [phone] PCP - General Internal Medicine 03/21/17 Kaye Ortega MD [address] [place] [address] General Surgery 09/21/21 Ye Coello MD [address] [place] [address] General Surgery 10/13/21 Emilie Jauregui PA-C [address] [place] [address] Specialty Commercial Tire Service Technician Pulmonary and Critical Care Medicine 10/13/21 Ryan May MD [address] [place] [address] Specialty Commercial Tire Service Technician Vascular Surgery 10/13/21 Geronimo Medina DO [address] [place] [address] Motorboat Mechanic Cardiology 10/13/21 Tamika HARRELL Tube Filler 09/26/17 Territory Outside Sales Manager Relationship Specialty Start Date End Date Daija Morton MD [address] [place], [place] [address]21 PCP - General Internal Medicine 03/21/17 Kaye Ortega MD [address] [place] [phone] General Surgery 09/21/21 Ye Coello MD [address] [place], [place] [address]255 General Surgery 10/13/21 Emilie Jauregui PA-C [address] [place], [place] [address] Specialty Commercial Tire Service Technician Pulmonary and Critical Care Medicine 10/13/21 Ryan May MD [address] [place] [address] Specialty Commercial Tire Service Technician Vascular Surgery 10/13/21 Geronimo Medina DO [address] [place] [address] Motorboat Mechanic Cardiology 10/13/21 Tamika HARRELL Tube Filler 09/26/17 Territory Outside Sales Manager Relationship Specialty Start Date End Date Daija Morton MD [address] [place] [address] PCP - General Internal Medicine 03/21/17 Kaye Ortega MD [address] [place] [address] General Surgery 09/21/21 Ye Coello MD [address] [place] [address] General Surgery 10/13/21 Emilie Jauregui PA-C [address] [place], [place] [address] Specialty Commercial Tire Service Technician Pulmonary and Critical Care Medicine 10/13/21 Ryan May MD [address] [place] [address] Specialty Commercial Tire Service Technician Vascular Surgery 10/13/21 Geronimo Medina DO [address] [place] [address] Motorboat Mechanic Cardiology 10/13/21 Tamika HARRELL Tube Filler 09/26/17 Territory Outside Sales Manager Relationship Specialty Start Date End Date Daija Morton MD [address] [place] [address] PCP - General Internal Medicine 03/21/17 Kaye Ortega MD [address] [place] [address] General Surgery 09/21/21 Ye Coello MD [address] [place] [address] General Surgery 10/13/21 Emilie Jauregui PA-C [address] [place] [address] Specialty Commercial Tire Service Technician Pulmonary and Critical Care Medicine 10/13/21 Ryan May MD [address] [facility] [place] [address] Specialty Commercial Tire Service Technician Vascular Surgery 10/13/21 Geronimo Medina DO [address] [place] [address] Motorboat Mechanic Cardiology 10/13/21 Tamika HARRELL Tube Filler 09/26/17 Territory Outside Sales Manager Relationship Specialty Start Date End Date Daija Morton MD [address] [place], [place] [address]591 PCP - General Internal Medicine 03/21/17 Beatriz Correa CNP [address] [facility] [place] [address] Referring 09/28/20 10/12/21 Daija Morton MD [address] [place], [place] 169131 Home Care Provider Internal Medicine 09/28/20 10/12/21 Fco Franklin, RN [address] [place] [address] Photocomposition Keyboard Operator 10/08/20 12/21/20 Tamika HARRELL Tube Filler 09/26/17 Territory Outside Sales Manager Relationship Specialty Start Date End Date Daija Morton MD [address] [place] [address] PCP - General Internal Medicine 03/21/17 Kaye Ortega MD [address] [place] [address] General Surgery 09/21/21 Ye Coello MD [address] [place], [place] [address] General Surgery 10/13/21 Emilie Jauregui PA-C [address] [place] [address] Specialty Commercial Tire Service Technician Pulmonary and Critical Care Medicine 10/13/21 Ryan May MD [address] [place] [address] Specialty Commercial Tire Service Technician Vascular Surgery 10/13/21 Geronimo Medina DO [address] [place] [address] Motorboat Mechanic Cardiology 10/13/21 Tamika Almaguer [facility] Tube Filler 09/26/17 Territory Outside Sales Manager Relationship Specialty Start Date End Date Daija Morton MD [address] [place] [address] PCP - General Internal Medicine 03/21/17 Kaye Ortega MD [address] [place] [address] General Surgery 09/21/21 Ye Coello MD [address] [place] [address]55 General Surgery 10/13/21 Emilie Jauregui PA-C [address] [place], [place] [address]48[address] Specialty Commercial Tire Service Technician Pulmonary and Critical Care Medicine 10/13/21 Ryan May MD [address] [facility] [place], [place] [address] Specialty Commercial Tire Service Technician Vascular Surgery 10/13/21 Geronimo Medina DO [address] [place] [address] Motorboat Mechanic Cardiology 10/13/21 Tamika Canales Tripp [facility] Tube Filler 09/26/17 Territory Outside Sales Manager Relationship Specialty Start Date End Date Daija Morton MD [address] [place], [place] [id number] PCP - General Internal Medicine 03/21/17 Kaye Ortega MD [address] [place] [address] General Surgery 09/21/21 Ye Coello MD [address] [place] [address] General Surgery 10/13/21 Emilie Jauregui PA-C [address] [place], [place] [address] [phone] Specialty Commercial Tire Service Technician Pulmonary and Critical Care Medicine 10/13/21 Ryan May MD [address] [facility] [place] [address] Specialty Commercial Tire Service Technician Vascular Surgery 10/13/21 Geronimo Medina DO [address] [place] [address] Motorboat Mechanic Cardiology 10/13/21 Tamika QUESADAPORT Tube Filler 09/26/17 Territory Outside Sales Manager Relationship Specialty Start Date End Date Daija Morton MD [address] [place] [address] PCP - General Internal Medicine 03/21/17 Kaye Ortega MD [address] [place] [address] General Surgery 09/21/21 Ye Coello MD [address] [place], [place] [address] General Surgery 10/13/21 Emilie Jauregui PA-C [address] [place], [place] [address]33631 Specialty Commercial Tire Service Technician Pulmonary and Critical Care Medicine 10/13/21 Ryan May MD [address] [place] [address] Specialty Commercial Tire Service Technician Vascular Surgery 10/13/21 Geronimo Medina DO [address] [place] [address] Motorboat Mechanic Cardiology 10/13/21 Tamika HARRELL Tube Filler 09/26/17 Team Status: Active Member Role Status Dates Dr. Daija Morton MD Primary Care Provider Active Team Status: Active Member Role Status Dates Dr. Daija Morton MD Primary Care Provider Active Start: July 15, 2024 Dr. Carla ARIN MD Attending Provider Active Start: July 15, [...] November 05, 2024 End: November 05, 2024 Territory Outside Sales Manager Relationship Specialty Start Date End Date Daija Morton MD [address] [place], [place] [address]3351 PCP - General Internal Medicine 03/21/17 Kaye Ortega MD [address] [place] [address] General Surgery 09/21/21 Ye Coello MD [address] [place], [place] [address]87165 General Surgery 10/13/21 Emilie Jauregui, PA-C [address] [place], [place] [address] Specialty Commercial Tire Service Technician Pulmonary and Critical Care Medicine 10/13/21 Ryan May MD [address] [facility] [place] [address] Specialty Commercial Tire Service Technician Vascular Surgery 10/13/21 Geronimo Medina DO [address] [place] [address] Motorboat Mechanic Cardiology 10/13/21 Anjel Braga APRN.CHANNEL MAN [address] [place] [address] Quality Assurance/R&D Lab Technician Internal Medicine 05/26/24 Tamika Almaguer [employer] Tube Filler 09/26/17 Territory Outside Sales Manager Relationship Specialty Start Date End Date Daija Morton MD [address] [place], [place] [address]2741 PCP - General Internal Medicine 03/21/17 Kaye Ortega MD [address] [place] [address] General Surgery 09/21/21 Ye Coello MD [address] [place] [address] General Surgery 10/13/21 Emilie Jauregui, PA-C [address] [place] [address] Specialty Commercial Tire Service Technician Pulmonary and Critical Care Medicine 10/13/21 Ryan May MD [address] [facility] [place] [address] Specialty Commercial Tire Service Technician Vascular Surgery 10/13/21 Geronimo Medina DO [address] [place] [address] Motorboat Mechanic Cardiology 10/13/21 Anjel Braga APRN.CHANNEL MAN [address] [place], [place] 867351 Quality Assurance/R&D Lab Technician Internal Medicine 05/26/24 Tamika Almaguer [employer] Tube Filler 09/26/17 Territory Outside Sales Manager Relationship Specialty Start Date End Date Daija Morton MD [address] [place], [place] 964151 PCP - General Internal Medicine 03/21/17 Kaye Ortega MD [address] [place] [address] General Surgery 09/21/21 Ye Coello MD [address] [place] [address] General Surgery 10/13/21 Emilie Jauregui PA-C [address] [place], [place] [address] Specialty Commercial Tire Service Technician Pulmonary and Critical Care Medicine 10/13/21 Ryan May MD [address] [place] [address] Specialty Commercial Tire Service Technician Vascular Surgery 10/13/21 eGronimo Medina DO [address] [place] [address] Motorboat Mechanic Cardiology 10/13/21 Anjel Braga APRN.CHANNEL MAN [address] [place] [address] Quality Assurance/R&D Lab Technician Internal Medicine 05/26/24 Tamika Almaguer [facility] Tube Filler 09/26/17 Territory Outside Sales Manager Relationship Specialty Start Date End Date Daija Morton MD [address] [place] [address] PCP - General Internal Medicine 03/21/17 Kaye Ortega MD [address] [place] [address] General Surgery 09/21/21 Ye Coello MD [address] [place], [place] [address]85 General Surgery 10/13/21 Emilie Jauregui PA-C [address] [place], [place] [address] Specialty Commercial Tire Service Technician Pulmonary and Critical Care Medicine 10/13/21 Ryan May MD [address] [place] [address] Specialty Commercial Tire Service Technician Vascular Surgery 10/13/21 Geronimo Medina DO [address] [place] [address] Motorboat Mechanic Cardiology 10/13/21 Anjel Braga APRN.CHANNEL MAN [address] [place] [address] Quality Assurance/R&D Lab Technician Internal Medicine 05/26/24 Tamika Almaguer [facility] Tube Filler 09/26/17 Territory Outside Sales Manager Relationship Specialty Start Date End Date Daija Morton MD [address] [place] [address] PCP - General Internal Medicine 03/21/17 Kaye Ortega MD [address] [address] General Surgery 09/21/21 Ye Coello MD [address] [place] [address] General Surgery 10/13/21 Emilie Jauregui PA-C [address] [place], [place] [address]26661 Specialty Commercial Tire Service Technician Pulmonary and Critical Care Medicine 10/13/21 Ryan May MD [address] [place], [place] 2024[address] Specialty Commercial Tire Service Technician Vascular Surgery 10/13/21 Geronimo Medina DO [address] [place] [address] Motorboat Mechanic Cardiology 10/13/21 Anjel Braga APRN.CHANNEL MAN [address] [place], [place] 744051 Quality Assurance/R&D Lab Technician Internal Medicine 05/26/24 Tamika Canales [facility] Tube Filler 09/26/17 Territory Outside Sales Manager Relationship Specialty Start Date End Date Daija Morton MD [address] [place], [place] [address]671 PCP - General Internal Medicine 03/21/17 Kaye Ortega MD [address] [place] [address] General Surgery 09/21/21 Ye Coello MD [address] [place], [place] [address]66[address] General Surgery 10/13/21 Emilie Jauregui PA-C [address] [place], [place] [address] Specialty Commercial Tire Service Technician Pulmonary and Critical Care Medicine 10/13/21 Ryan May MD [address] [place], [place] [address] Specialty Commercial Tire Service Technician Vascular Surgery 10/13/21 Geronimo Medina DO [address] [place] [address] Motorboat Mechanic Cardiology 10/13/21 Anjel Braga APRN.CHANNEL MAN [address] [place] [address] Quality Assurance/R&D Lab Technician Internal Medicine 05/26/24 Tamika Canales Tripp [facility] Tube Filler 09/26/17 Team Status: Active Member Role/Relationship Status [...] Active St art: December 13, 2024 Dr. Shlipa Contreras MD Attending Provider Active Start: December [...] Provider Active Start : December 16, 2024 Territory Outside Sales Manager Relationship Specialty Start Date End Date Daija Morton MD [address] [place] [address] PCP - General Internal Medicine 03/21/17 Kaye Ortega MD [address] [place] [address] General Surgery 09/21/21 Ye Coello MD [address] [place] [address] General Surgery 10/13/21 Emilie Jauregui PA-C [address] [place], [place] [address]171 Specialty Commercial Tire Service Technician Pulmonary and Critical Care Medicine 10/13/21 Ryan May MD [address] [place] [address] Specialty Commercial Tire Service Technician Vascular Surgery 10/13/21 Geronimo Medina DO [address] [place] [address] Motorboat Mechanic Cardiology 10/13/21 Anjel Braga APRN.CHANNEL MAN [address] [place] [address] Quality Assurance/R&D Lab Technician Internal Medicine 05/26/24 Tamika Almaguer [facility] Tube Filler 09/26/17 Territory Outside Sales Manager Relationship Specialty Start Date End Date Daija Morton MD [address] [place] [address] PCP - General Internal Medicine 03/21/17 Kaye Ortega MD [address] [place] [address] General Surgery 09/21/21 Ye Coello MD [address] [place] [address] General Surgery 10/13/21 Emilie Jauregui PA-C [address] [place], [place] [address] Specialty Commercial Tire Service Technician Pulmonary and Critical Care Medicine 10/13/21 Ryan May MD [address] [place] [address] Specialty Commercial Tire Service Technician Vascular Surgery 10/13/21 Geronimo Medina DO [address] [place] [address] Motorboat Mechanic Cardiology 10/13/21 Anjel Braga APRN.CHANNEL MAN [address] [place], [place] [address] Quality Assurance/R&D Lab Technician Internal Medicine 05/26/24 Tamika Almaguer [facility] Tube Filler 09/26/17 Team Status: Active Member Role/Relationship Status Dates Dr. Daija Morton MD Primary Care Provider Active Start: December 17, 2024 Dr. Seth Pritchard DO Emergency Provider Active Start: December 17, 2024 Dr. Roman Patel DO Admit Provider Active Start: December 17, 2024 Dr. Roman Patel DO Attending Provider Active Start: December 17, 2024 Territory Outside Sales Manager Relationship Specialty Start Date End Date Daija Morton MD [address] [place], [place] [id number] PCP - General Internal Medicine 03/21/17 Kaye Ortega MD [address] [place] [address] General Surgery 09/21/21 Ye Coello MD [address] [place], [place] [address] General Surgery 10/13/21 Emilie Jauregui PA-C [address] [place], [place] [address] Specialty Commercial Tire Service Technician Pulmonary and Critical Care Medicine 10/13/21 Ryan May MD [address] [facility] [place] [address] Specialty Commercial Tire Service Technician Vascular Surgery 10/13/21 Geronimo Medina DO [address] [place] [address] Motorboat Mechanic Cardiology 10/13/21 Anjel Braga APRN.CHANNEL MAN [address] [place], [place] [address] Quality Assurance/R&D Lab Technician Internal Medicine 05/26/24 Tamika Almaguer [facility] Tube Filler 09/26/17 Team Status: Inactive Member Role/Relationship Status [...] Active Start: August 29, 2024 Dr. Celia Troibio MD Other Provider Active Star t: August [...] Star t: August 30, 2024 Dr. Elton oMore MD Other Provider Active Start: August 30, [...] art: December 14, 2024 Dr. Lisha Talamantes , Attending Provider Active S tart: December 14, [...] art: December 15, 2024 Dr. Lisha Talamantes , Attending Provider Active S tart: December 15, 2024 Dr. Lisha Talamantes DO Other Provider Active Start : December 15, 2024 Team Status: Active Member Role/Relationship Status Dates Dr. Daija Morton MD Primary Care Provider Active Start: December 16, 2024 Dr. Charis Walker , Emergency Provider Active S tart: December 16, 2024 Dr. Shilpa Contreras MD Admit Provider Active St art: December 16, 2024 Dr. Shilpa Contreras MD Other Provider Active St art: December 16, 2024 Dr. Lisha Talamantes DO Attending Provider Active S tart: December 16, 2024 Dr. Lihsa Talamantes DO Other Provider Active Start : [...] Active Start: December 18, 2024 Dr. Noman Dumont MD Other Provider [...] Mcgraw MS Other Provider Active Start: 2024 End: December 26, 2024 Jo Hughes MD Other Provider Active Start: December 18, 2024 End: December 26, 2024 JOSETTE YANG MD Other Provider Active Start: 2024 End: December 26, 2024 Angelo Wiley [...] Provider Active Start: December 19, 2024 Dr. Romna Patel DO Other Provider Active Start: December [...] S tart: December 19, 2024 Dr. Lisha Talamantes DO Other Provider Active Start : December 19, 2024 Team Status: Active Member Role/Relationship Status Dates Dr. Daija Morton MD Primary Care Provider Active Start: December 20, 2024 Dr. Seth Pritchard DO Emergency Provider Active Start: December 20, 2024 Dr. Roman Patel DO Admit Provider Active Start: December 20, 2024 Dr. Roman Patel DO Other Provider Active Start: December 20, 2024 Ricardo Mccullough MD Other Provider Active Start: 2024 Dr. Aung Peres MD Other Provider Active Start: December 20, 2024 Amy Chun MD Other Provider Active Start : December 20, 2024 Dr. Mackenzie Guzmán DO Other Provider Active St art: December 20, [...] Active Star t: December 20, 2024 Dr. Quetnin Rasmussen MD Other Provider Active St art: [...] Other Provider Active Start: J chance 2024 JOSETTE YANG MD Other Provider Active Start: J chance 2024 Jo Hughes MD Other Provider Active Start: December 20, 2024 Team Status: Active Member Role/Relationship Status Dates Dr. Daija Morton MD Primary Care Provider Active Start: December 21, 2024 Dr. Seth Pritchard DO Emergency Provider Active Start: December 21, 2024 [...] MS Other Provider Active Start: J chance2024 Jo Hughes MD Other Provider Active Start: [...] Active Sta rt: December 22, 2024 Tamika Xiao MD Other Provider Active Start : December 22, 2024 Dr. Hans Rosales MD Other Provider Active St art: December 22, 2024 Dr. Daylin Schmitt MD Other Provider Active Start : December 22, 2024 Dr. Reén Reno MD Other Provider Active Sta rt: [...] MS Other Provider Active Start: J chance2024 Jo Hughes MD Other Provider Active Start: [...] Start: December 23, 2024 Dr. Seth Pritchard , Emergency Provider Active Start: December 23, 2024 [...] December 25, 2024 Dr. Roman Patel DO Admit Provider Active Start: December 25, [...] Start: December 26, 2024 Dr. Seth Pritchard , Emergency Provider Active Start: December 26, 2024 Dr. Roman Patel DO Admit Provider Active Start: December 26, 2024 Dr. Roman Patel , DO Other Provider Active Start: December 26, [...] MS Other Provider Active Start: J chance2024 Jo Hughes MD Other Provider Active Start: [...] Provider Active Start : December 26, 2024 Territory Outside Sales Manager Relationship Specialty Start Date End Date Daija Morton MD [address] [place], [place] [address] PCP - General Internal Medicine 03/21/17 Kaye Ortega MD [address] [place] [address] General Surgery 09/21/21 Ye Coello MD [address] [place] [address] General Surgery 10/13/21 Emilie Jauregui PA-C [address] [place] [address] Specialty Commercial Tire Service Technician Pulmonary and Critical Care Medicine 10/13/21 Ryan May MD [address] [place] [address] Specialty Commercial Tire Service Technician Vascular Surgery 10/13/21 Geronimo Medina DO [address] [place] [address] Motorboat Mechanic Cardiology 10/13/21 Anjel Braga APRN.CNP [address] [place], [place] [id number] Quality Assurance/R&D Lab Technician Internal Medicine 05/26/24 [facility] 09/26/17 Team Status: Active Member Role/Relationship Status [...] Provider Active Start: December 16, 2024 Dr. Remus Ungur , DO Emergency Provider Active S tart: December 16, 2024 Dr. Shilpa Contreras MD Admit Provider Active St art: December 16, 2024 Dr. Shilpa Contreras MD Other Provider Active St art: December 16, 2024 Dr. Lisha Talamantes DO Attending Provider Active S tart: December 16, 2024 Dr. Lisha Talamantes , DO Other Provider Active Start : [...] Other Provider Active Start: December 18, 2024 mAy Chun MD Other Provider Active Start : [...] Active Start: December 18, 2024 Dr. Noman Dumont MD Other Provider [...] 18, 2024 End: December 26, 2024 Luan Mindel , MS Other Provider Active Start: 2024 End: December 26, 2024 Jo Hughes MD Other Provider Active Start: December 18, 2024 End: December 26, 2024 JOSETTE YANG MD Other Provider Active Start: 2024 End: December 26, 2024 Angelo Wiley [...] S tart: December 19, 2024 Dr. Lisha Talamantes DO Other Provider Active Start : December 19, 2024 Team Status: Active Member Role/Relationship Status Dates Dr. Daija Morton MD Primary Care Provider Active Start: December 20, 2024 Dr. Seth Pritchard DO Emergency Provider Active Start: December 20, 2024 Dr. Roman Patel DO Admit Provider Active Start: December 20, 2024 Dr. Roman Patel DO Other Provider Active Start: December 20, 2024 Ricardo Mccullough MD Other Provider Active Start: 2024 Dr. Aung Peres MD Other Provider Active Start: December 20, 2024 Amy Chun MD Other Provider Active Start : December 20, 2024 Dr. Mackenzie Guzmán DO Other Provider Active St art: December 20, [...] Other Provider Active Start: J chance 2024 JOSETTE YANG MD Other Provider Active Start: J chance 2024 Jo Hughes MD Other Provider Active Start: December 20, 2024 Team Status: Active Member Role/Relationship Status Dates Dr. Daija Morton MD Primary Care Provider Active Start: December 21, 2024 Dr. Seth Pritchard DO Emergency Provider Active Start: December 21, 2024 [...] Active Sta rt: December 22, 2024 Tamika Xiao MD Other Provider Active [...] MS Other Provider Active Start: J chance2024 Jo Hughes MD Other Provider Active Start: [...] Start: December 23, 2024 Dr. Roman Patel , DO Admit Provider Active Start: December 23, [...] Provider Active Start: December 23, 2024 Addi Atr MD Other Provider Active Start: December 23, 2024 Chrystal Collier MD Other Provider Active Start : December 23, 2024 Luan Mcgraw MS Other Provider Active Start: Landry simon2024 Jo Hughes MD Other Provider Active Start: [...] St art: December 24, 2024 Dr. Maya Talamantse MD Other Provider Active Start: December 24, [...] art: December 24, 2024 Dr. Lisha Talamantes , Other Provider Active Start : December 24, [...] 25, 2024 Dr. Roman Patel , DO Other Provider Active Start: December 25, [...] Mcgraw MS Other Provider Active Start: J 2024 Jo Hughes MD Other Provider Active [...] Provider Active Start : December 26, 2024 Team Status: Active Member Role/Relationship Status Dates Dr. Daija Morton MD Primary Care Provider Active Start: December 30, 2024 Lorraine RAIN MD Attending Provider Active Start: December 30, 2024 Team Status: Active Member Role/Relationship Status Dates Dr. Daija Morton MD Primary Care Provider Active Start: December 31, 2024 Lorraine RAIN MD Attending Provider Active Start: December 31, 2024 Team Status: Inactive Member Role/Relationship Status Dates Dr. Daija Morton MD Primary Care Provider Active Start: January 03, 2025 End: January 03, 2025 Dr. Arnulfo Zhao DO Emergency Provider Active Start: January 03, 2025 End: January 03, 2025 Goals (unrecognized section and content) Goals may [...] BE BASED ON THE PRIMARY CLINICAL RECORDS. [facility] [employer] [facility] provides no warranty or guarantee of the accuracy or completeness of information in this document.
[2025-01-05 10:38] LABS: AST(SGOT) 32 U/L (<=37); Alanine Aminotransfer ALT/SGPT 33 U/L (<=46); Albumin, Serum 4.6 g/dL (3.4-4.8); Alkaline Phosphatase 83 U/L (40-129); Anion Gap 14 (5-15); BUN 24 mg/dL (4-19); BUN/Creat Ratio 18.8 RATIO (10-20); Calcium,Total 10.3 mg/dL (7.6-11.0); Carbon Dioxide 28.4 mmol/L (21.0-32.0); Chloride 93 mmol/L (98-108); Estimated Creatinine Clearance 54.46 ml/min (50-250); Globulin 3.2 g/dL (2.2-4.2); Glucose 123 mg/dL (70-99); Potassium 4.3 mmol/L (3.3-5.1)
[2025-01-05] MEDS: Albuterol 2.5 MG/3 ML VIAL.NEB. INHALATION ×3 (11:26)
--- NOTE | 2025-01-05 11:44 | ED.RN ---
dr [email or web address] notified of the need for NT suctioning and increased Oxygen needs
--- NOTE | 2025-01-05 13:02 | RAD_ITS ---
PROCEDURE: ABDOMEN SINGLE VIEW (PORTABLE) 01/05/2025 REASON FOR EXAM: WITH CONTRAST TO VERIFY GASTROSTOMY TUBE LOCATION TECHNIQUE: ABDOMEN SINGLE VIEW (PORTABLE) COMPARISON: Abdomen study dated 01/03/2025 FINDINGS: A PEG tube tip is projected in the region of the stomach. Contrast material is identified within the stomach. There is no extravasation of the contrast. There is also some contrast material within the colon and rectum. Radiopaque iliac vessel stents are noted. RAD/Abdomen Single View (Portable) IMPRESSION: A PEG tube tip is projected in the region of the stomach. Contrast material is identified within the stomach. There is no extravasation of the contrast. Reading Location: [facility]
[2025-01-05 13:18] LABS: Allen Test Positive; Base Excess 9 mmol/L (-2 to +2); FI02 6.0; PO2 52 mmHG (75-100); SITE L Radial; SO2 88 % (95-99)
--- NOTE | 2025-01-05 13:36 | HP.PCM.HOS_ITS ---
HPI - General General Date of Admission: 01/05/25 Date of Service: 01/05/25 Chief Complaint: Suspected PEG tomorrow found HPI Narrative PEDRO PABLO SIERRA, is a 74 M with recent diagnosis of acute left MCA CVA discharged to a group home facility. Patient had a PEG tube placed on 12/24/2024. Patient was brought to the emergency department with suspicion of PEG tube malfunctioning. Patient underwent imaging studies in the ED his PEG tube was found to be functioning as designed. Patient was also noted to have elevated blood pressure and route to the hospital. Physical examination in the ED did reveal significant bilateral rhonchi. Patient also became hypoxic necessitating patient being placed on Ventimask suspicion of aspiration pneumonia was made. Antibiotics initiated per protocol patient admitted to a monitored bed for further management [facility] Medical History Acute CVA (cerebrovascular accident) Aphasia Hypertension Weakness Debility Failure to thrive Compression fx, lumbar spine Hypertension Falls Hypertension Closed fracture of right superior pubic ramus Multiple falls Compression fracture of thoracic vertebra History of atrial fibrillation Iron deficiency anemia Chronic respiratory failure with hypoxia Osteoporosis Lumbar compression fracture Compression fracture Obstructive sleep apnea Hyperlipidemia Asthma Peripheral arterial occlusive disease Seizure disorder Chronic obstructive pulmonary disease Coronary artery disease Lupus anticoagulant disorder BPH (benign prostatic hyperplasia) Ulcerative colitis Peripheral vascular disease Anxiety COPD (chronic obstructive pulmonary disease) with emphysema Closed fracture of right inferior pubic ramus Acute UTI COPD (chronic obstructive pulmonary disease) UTI (urinary tract infection) Depression Diabetes Kidney stones Chronic pain Pancreatitis On home oxygen therapy Irregular heart beat Atrial fibrillation Stroke/cerebrovascular accident Smoker Falls frequently Seizures Sleep apnea COPD (chronic obstructive pulmonary disease) Asthma High cholesterol Tobacco abuse Home Medications ?Medication ?Instructions ?Recorded ?Last Taken ?Type atorvastatin 40 mg tablet 40 mg PO QHS Cholesterol 12/0212/12/24 History alendronate 70 mg tablet 70 mg PO QWEEK OSTEOPROSIS # 1 TAB 11/30/21 12/09/24 Rx acetaminophen 325 mg tablet 650 mg (2 x 325 mg) feedin g tube 12/24/24 Unknown Rx Q6H PRN PRN Pain 1-10 Or Fever>100.7 #0 tabs albuterol sulfate 2.5 mg/3 mL 2.5 mg (3 mL) inhalation Q4H PRN 12/24/24 Unknown Rx (0.083 %) solution for nebulization DYSPNEA/WHEEZING/S OB #0 mL amlodipine 10 mg tablet 10 mg G-tube DAILY.RT #0 tab s 12/24/24 Unknown Rx carbamazepine 100 mg/5 mL oral 200 mg (10 mL) G-tube 4 X/DAY #0 mL 12/24/24 Unknown Rx suspension cholecalciferol (vitamin D3) 50 50 mcg feeding tube DA KATHERINE 12/24/24 01/05/25 Rx mcg (2,000 unit) tablet SUPPLEMENT 30 days #30 tabs clonidine 0.2 mg/24 hr weekly 0.2 mg transdermal Q7D # 0 ea 12/24/24 Unknown Rx transdermal patch ergocalciferol (vitamin D2) 1,250 1,250 mcg feeding tu be Q7D 12/24/24 12/13/24 08:58 Rx mcg (50,000 unit) capsule (Vitamin SUPPLEMENT #0 caps D2) finasteride 5 mg tablet 5 mg feeding tube DAILY pros jasso 12/24/24 12/13/24 08:58 Rx 30 days #30 tabs gabapentin 100 mg capsule 100 mg feeding tube DAILY PA IN 30 12/24/24 12/13/24 08:58 Rx days #30 caps ipratropium 0.5 mg-albuterol 3 mg 3 ml inhalation .q6h wa #0 mL 12/24/24 Unknown Rx (2.5 mg base)/3 mL nebulization soln lactose-reduced food with fiber 55 ml feeding tube .18 hours #5,688 12/24/24 Unknown Rx 0.06 gram-1.5 kcal/mL oral liquid mL (Jevity 1.5 Alex) losartan 100 mg tablet 100 mg feeding tube DAILY Bl ood 12/24/24 12/13/24 08:58 Rx pressure 30 days #30 tabs melatonin 3 mg tablet 3 mg G-tube QHS PRN PRN Inso mnia 12/24/24 Unknown Rx #0 tabs mirtazapine 15 mg tablet 15 mg feeding tube QHS anti 12/24/24 12/12/24 20:59 Rx depressant 30 days #30 tabs prednisone 20 mg tablet 40 mg (2 x 20 mg) G-tube ZELDA AKFAST 12/24/24 Unknown Rx 5 days #10 tabs sertraline 100 mg tablet 100 mg feeding tube DAILY Unknown Rx DEPRESSION 30 days #30 tabs thiamine HCl (vitamin B1) 100 mg 100 mg G-tube BREAKFA ST #0 tabs 12/24/24 Unknown Rx tablet apixaban 5 mg tablet (Eliquis) 5 mg PO BID 01/03/25 Un known History atorvastatin 40 mg tablet (Lipitor) 40 mg PO DAILY Unknown History hydralazine 25 mg tablet 50 mg G-tube 3XD 01/03/25 Un known History metoprolol tartrate 25 mg tablet 50 mg feeding tube BI D Blood 01/03/25 Unknown History pressure pantoprazole 40 mg granules 40 mg PO DAILY 01/03/25 Un known History delayed-release for susp in packet (Protonix) Allergy/AdvReac Type Severity Reaction Status Date / Time No Known Allergies Allergy Verified 01/03/25 06:32 Family History Mother Heart disease CVA (cerebral vascular accident) Hypertension Father Heart disease CVA (cerebral vascular accident) Hypertension Surgical History S/P arterial stent History of appendectomy Social History household members: family 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 Smoking Status: Former smoker alcohol intake: former details: Former alcoholic quit several years ago substance use type: does not use caffeine: Yes Type: coffee Number of servings: 3 ROS ROS Narrative Unable to obtain patient is aphasic Vital Signs Vital Signs Vital Signs: 01/05/25 09:38 01/05/25 10:37 01/05/25 11:00 Temperature 96.6 F L Temperature Source Temporal Pulse Rate 69 58 L Respiratory Rate 23 H 16 Blood Pressure 183/75 H 164/127 H 180/75 H Blood Pressure Mean 111 139 110 Pulse Ox 91 92 Oxygen Delivery Method Nasal Cannula Nasal Cannula Oxygen Flow Rate (L/min) 2 2 Fraction of Inspired Oxygen (FIO2) 01/05/25 11:27 01/05/25 11:34 01/05/25 11:40 Temperature Temperature Source Pulse Rate 58 L 57 L Respiratory Rate 20 H 19 H Blood Pressure 193/75 H Blood Pressure Mean 114 Pulse Ox 78 91 Oxygen Delivery Method Nasal Cannula Simple Mask Oxygen Flow Rate (L/min) 5 7 Fraction of Inspired Oxygen (FIO2) 01/05/25 11:47 01/05/25 12:24 01/05/25 13:27 Temperature Temperature Source Pulse Rate 78 79 97 Respiratory Rate 20 H 22 H 34 H Blood Pressure 182/68 H Blood Pressure Mean 106 Pulse Ox 93 93 Oxygen Delivery Method Nasal Cannula Oxygen Flow Rate (L/min) 5 Fraction of Inspired Oxygen (FIO2) 01/05/25 13:33 Temperature Temperature Source Pulse Rate Respiratory Rate Blood Pressure Blood Pressure Mean Pulse Ox 95 Oxygen Delivery Method Venturi Mask Oxygen Flow Rate (L/min) 10 Fraction of Inspired Oxygen (FIO2) 35 Weight Weight: 75.4 kg Body Mass Index (BMI) 22.5 Physical Exam Narrative GENERAL: On a Ventimask HEENT: Atraumatic; normocephalic EYES; Anicteric, Normal Conjunctiva NECK; supple, normal thyroid, RESPIRATORY: Diminished to auscultation, bilateral rhonchi CARDIOVASCULAR: Regular S1 S2, GI: soft, normoactive bowel sounds, : No Renal angle tenderness; EXTREMITIES: No edema, no clubbing, MUSCULOSKELETAL: no muscle wasting NEURO: Awake; aphasic SKIN: No Rash PSYCH; Flat affect Results Lab / Micro Data 01/05/25 09:45 01/05/25 09:45 Labs: Laboratory Results - last 24 hr 01/05/25 09:45: WBC 10.2, RBC 4.53 L, Hgb 12.6 L, Hct 39.6 L, MCV 87.4, MCH 27.8, MCHC 31.8 L, RDW Std Deviation 48.0 H, RDW Coeff of Aly 15.1 H, Plt Count 462 H, MPV 9.8, Immature Gran % (Auto) 0.500, Neut % (Auto) 76.7 H, Lymph % (Auto) 14.2 L, [place] % (Auto) 7.0, Eos % (Auto) 1.2, Baso % (Auto) 0.4, Absolute Neuts (auto) 7.8 H, Absolute Lymphs (auto) 1.45, Nucleated RBC % 0, Sodium 135, Potassium 4.3, Chloride 93 L, Carbon Dioxide 28.4, Anion Gap 14, BUN 24 H, C reatinine 1.25 H, Estim Creat Clear Calc 54.46, Est GFR (MDRD) Non-Af 60, BUN/Creatinine Ratio 18.8, Glucose 123 H, Lactic Acid 1.1, Calcium 10.3, Total Bilirubin 0.25, AST 32, ALT 33, Alkaline Phosphatase 83, Total Protein 7.8, Albumin 4.6, Globulin 3.2, Albumin/Globulin Ratio 1.4 ABG Data ABG results: ABG 01/05/25 13:14 Specimen Type ART Sample Site L Radial pH 7.45 Bicarbonate Actual 33.0 H Total CO2 35 Base Excess 9 H O2 Saturation 88 L O2 % 6.0 ABG pCO2 47.9 H ABG pO2 52 L Dann Test Positive O2 Delivery Device Cannula Vent Mode Not entered Imaging Radiology Impression Chest X-Ray 01/05/25 09:59 IMPRESSION: COPD. No acute findings. Reading Location: [id number] X-Ray 01/05/25 13:02 IMPRESSION: A PEG tube tip is projected in the region of the stomach. Contrast material is identified within the stomach. There is no extravasation of the contrast. Reading Location: [id number] Assessment & Plan Assessment/Plan (1) Aspiration into respiratory tract: (2) Bronchospasm, acute: PLAN: Plan Patient is a 74-year-old gentleman with recent left MCA CVA with resultant aphasia and dysphagia requiring PEG tube, who was transferred from [facility] with suspicion of PEG tube malfunctioning. Was also found to have elevated blood pressure. A clinical suspicion of aspiration pneumonia was made in the ED patient admitted to a monitored bed for subsequent management 1. Suspected aspiration pneumonia ? Admitted to a monitored bed patient started on antibiotic therapy?Zosyn. Did obtain sputum as well as blood cultures in addition to COVID and viral respiratory panel 3. Acute hypoxic respiratory failure ? Secondary to patient aspiration pneumonia. Patient had to be placed on Ventimask after his oxygen saturation was reported to be in the 70s. Oxygen currently being titrated to keep saturation greater than 90 3. 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 Paroxysmal atrial fibrillation ? Rate controlled on systemic anticoagulation with apixaban via PEG tube continue 5. Suspected PEG tube malfunction ? Imaging studies obtained in the ED did show A PEG tube tip is projected in the region of the stomach. Contrast material is identified within the stomach. There is no extravasation of the contrast.. Patient PEG tube functioning as designed. Will resume tube feeding 6. COPD ? Did continue patient aerosol treatment as well as prednisone 7. Accelerated hypertension ? Patient blood pressure on admission was 193/75. Continue with home meds also added hydralazine as needed for systolic blood pressure greater than 160 8. Acute renal insufficiency ? Patient creatinine from 12/24/2024 was 0.98, creatinine on admission was 1.25 started on IV hydration. Repeat BMP ordered for a.m. 9. Dyslipidemia ?Patient is on statin therapy, continued at home dose 10. Seizure disorder ? Patient is on, monitor. Continue BPH with lower urinary obstructive symptoms - Patient treated with tamsulosin 12. Depression with anxiety ? Patient is on mirtazapine at night continue 13. DVT prophylaxis ? Currently on apixaban CODE STATUS from ECF documentation DNR CCA no intubation reordered Time spent in the patient's overall evaluation,decision-making process, review of diagnostic data, adjustment of management, discussion with other providers, nursing nursing and ancillary staff involved in patient's care documentation, 78 Minutes Charges/Coding Visit Charges Inpatient E&M: 63774 Init Hosp L3
--- OUTSIDE RECORDS SUMMARY | 2025-01-05 13:55 | XMS RPT_ITS | CCD ---
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 Joi Osuna Attending Provider Dr. Brendna Vallejo Other Provider Raúl RANDALL, Kaye Lyon [...] Provider Unavailable Oscar, Dr. Wallace Other Provider [phone] SELENE RANDALL, DR DAIJA France Primary Care [...] Dr. Elton Moore Other Provider Dr. Brody Manyard Admit Provider Dr. Brody Maynard Other Provider [...] Dr. Aguirre Attending Provider Unavaila deandre Older INFANTRY SENIOR SERGEANT.QUALITY ENGINEER, Anjel Unavailable Aaron GUTIERREZ, Dr. Vizcaino Emergency [...] Dr. Yang Other Provider Oscar RANDALL, Dr. Wallaec Other Provider Caesar RANDALL, Dr. Skinner Attending [...] Dr. Husain Attending Provider Jorge GUTIERREZ, Dr. Oewns Other Provider Casandra RANDALL, Dr. Rose Attending Provider Jamel RANDALL, Ricardo Other Provider Unavailable Ja RANDALL, Dr. Horan Other Provider [phone] Amy Chun MD Other Provider Unavailable Dr. Mackenzie Guzmán DO Other Provider Jairo RANDALL, Dr. Bowens Other Provider [phone] Rolly RANDALL, Dr. Guzman Other Provider Hoang RANDALL, Dr. Mcclure Other Provider Jasper RANDALL, Dr. Lara Other Provider [phone] Tim RANDALL, Dr. Tineo Other Provider [...] Other Provider Jo Hughes MD Other Provider [phone] JOSETTE YANG MD Other Provider Angelo Wiley MD Other Provider [phone] Neelam Almendarez MD Other Provider Mikey RANDALL, Dr. Carter Attending Provider Santiago GUTIERREZ, Dr. Bob Attending Provider GANTA, [...] Paulino Attending Unavailable Ricardo Mccullough Consulting Unavailable [facility] Unavailable Aung Peres Consulting Unavailable [...] Talamantes Consulting Unavailable Celia Toribio Attending Unavailable [facility] Unavailable Celia Toribio Consulting Unavailable SueamKathi Attending Unavailable [facility], Brody Consulting Unavailable [facility], Brody Admitting Unavailable [facility] Unavailable Koram, Kathi Vivian Consulting Unavailable [facility], Brody Consulting Unavailable Raul Merino Attending Unavailable [facility], Brody Admitting Unavailable [facility] Unavailable Koram, Kathi Vivian Consulting Unavailable Raul Merino Consulting Unavailable Carla Davis Attending Unavailable [facility] Unavailable Lorraine Godoy Attending Unavailabl e Ganta, [facility] Primary Care Unavailable Lorraine Godoy Attending Unavailabl e Ganta, [facility] Primary Care Unavailable Albin, Lisha Admitting Unavailable Celia Toribio Attending Unavailable Lisha Talamantes Consulting Unavailable [facility] Unavailable Elton Moore Consulting Unavailable Celia Toribio Consulting Unavailable Caesar, Brody Attending Unavailable Lisha Talamantes Attending Unavailable White, Shilpa L Admitting Unavailable White, Shilpa L Consulting Unavailable Lisha Talamantes Attending Unavailable [facility] Care Unavailable White, Shilpa L Attending Unavailable White, Shilpa L Admitting Unavailable White, Shilpa L Consulting Unavailable [facility] Care Unavailable Carla Davis Attending Unavailable [facility] Care Unavailable Casandra Lewiselena Attending Unavailable [facility] Care Unavailable White, Shilpa L Admitting Unavailable White, Shilpa L Consulting Unavailable Lisha Talamantes Attending Unavailable [facility] Care Unavailable Lisha Talamantes Consulting Unavailable Roman Patel Attending Unavailable Jorge, Roman Admitting Unavailable Jorge, Roman Consulting Unavailable [facility] Primary Care Unavailable Brody Maynard Attending Unavailable Caesar Brody Consulting Unavailable Lisha Talamantes Attending Unavailable Jorge, Roman Admitting Unavailable Lisha Talamantes Attending Unavailable Ricardo Mccullough Consulting Unavailable [facility] Care Unavailable Adeli, Amir Consulting Unavailable Hinduja, [...] Talamantes Consulting Unavailable Jb Adler Attending Unavailable [facility] Primary Care Unavailable Dr. Daija Morton MD Primary Care Provider Dr. Lisha Talamantes DO Other Provider Lorraine Mena MD Attending Provider UnavailDr. Arnulfo Jang DO Emergency Provider Medications Current Medications Medication Drug Class(es) [...] Start: 08-22-2023 End: 12-24-2024 168 hr cloNIDine 0.11522 mg/ hr transdermal system (20 sources) Central [...] 02/01/2021 Discontinued take 1 capsule by mo [facility] three times daily gabapentin (NEURONTIN) 100 [...] mg tablet Indications: Coronary artery disease involving [place] coronary artery of [place] heart without angina pectoris Take 1 tablet [...] Comment on above: Take 1 capsule by [facility] twice daily for 5 days. Take 1 capsule by [facility] twice daily with meals for 7 days. [...] Comment on above: Take 1 tablet by [facility] once daily. take one tablet by [facility] every day perflutren lipid microspheres 1.3 mL [...] Active Start: 08-03-2020 End: 12-23-2020 Back [facility] Indications: PAD (peripheral artery disease) (HCC) , [...] unspecified emphysema type (HCC) Aerosol supplies Dx:J44.1 NPI#[id number] 1 Each 2 04/11/2018 02/02/2022 Discontinued (Duplicate Entry) Start: 04-11-2018 End: 02-02-2022 COMPOUNDED PRESCRIPTION Tamela cations: Pulmonary emphysema, unspecified emphysema type (HCC) NEBULIZER FOR HOME USE. DX: Emphysema, COPD 1 Each 3 04/11/2018 02/02/2022 Discontinued (Duplicate Entry) Start: 04-11-2018 COMPOUNDED PRE SCRIPTION Indications: Pulmonary emphysema, unspecified emphysema type (HCC) Aerosol supplies Dx:J44.1 NPI#[id number] 1 Each 2 04/11/2018 Active Start: 04-11-2018 COMPOUNDED PRE SCRIPTION Indications: Pulmonary emphysema, unspecified emphysema type (HCC) NEBULIZER FOR HOME USE. DX: Emphysema, COPD 1 Each 3 04/11/2018 Active Comment on above: Aerosol supplies Dx: J44.1 NPI#[id number] NEBULIZER FOR HOME U SE. DX: Emphysema, COPD 12 hr dextromethorphan hydrobromide 60 mg / guaiFENesin 1200 mg extended release oral tablet (16 sources) Uncompetitive O-cjlpmt-Q-aspartate Receptor Antagonist, Sigma-1 Agonist Start: 09-02-2024 End: [...] Compression fracture of L2 vertebra, initial encounter ([facility]) Take 1 capsule by mouth once daily [...] Comment on above: Take 1 capsule by [facility] once daily as needed for Constipation. Take with pain medication docusate sodium 50 mg / sennosides, mcc 8.6 mg oral tablet (14 sources) Start: [...] Corticosteroid, beta2-Adrenergic Agonist Start: 03-24-2020 End: 04-05-2021 ermvosrrcbn-bnsqehaeb-ft lanter (TRELEGY ELLIPTA) 100-62.5-25 mcg [The details [...] End: 12-07-2015 Start: 12-02-2015 End: 12-07-2015 Ipratropium [place] (Atroven t (Sp)) 12.9 GM inhaler Discontinued 2 NMA INHALATION EVERY 6 HOURS December 02, 2015 12:00am December 07, 2015 10:01am Start: 12-02-2015 End: 12-07-2015 take 1 puff(s) by inhalation every six hours Ipratropium [place] (Atrovent (Sp)) 12.9 GM inhaler Discontinued 2 [...] on above: Take 1 capsule by mo [facility] once daily. tiotropium 0.018 mg inhalati on powder (20 sources) Anticholinergic Start: 12-02-2015 End: 12-07-2015 Start: 12-02-2015 End: 12-07-2015 Tiotropium [place] (Spiriva 18 Mcg) 1 PUFF inhaler Discontinued 1 NMA INHALATION DAILY December 02, 2015 12:00am December 07, 2015 10:02am Start: 12-02-2015 End: 12-07-2015 Start: 12-02-2015 End: 12-07-2015 take 1 puff(s) by inhalation once daily Tiotropium [place] (Spiriva 18 Mcg) 1 PUFF inhaler Discontinued 1 PUFF INHALATION DAILY December 01, 2015 11:00pm December 07, 2015 9:02am Start: 01-26-2014 End: 09-29-2015 Start: 01-26-2014 End: 09-29-2015 take 1 puff(s) by inhalation once daily Tiotropium [place] (Spiriva With Handihaler) 1 PUFF inhaler Discontinued 1 NMA INHALATION DAILY January 26, 2014 12:00am September 29, 2015 1:10pm Start: 01-26-2014 End: 09-29-2015 Start: 01-26-2014 End: 09-29-2015 take 1 puff(s) by inhalation once daily Tiotropium [place] (Spiriva With Handihaler) 1 PUFF inhaler Discontinued [...] ing 09/13/2021 Take 2 tablets by mo [facility] once daily. 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] Episodic Other aftercare (20 sources) Drug therapy status; Translations: [alf (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 of anticoagulants] 08-18-2021 Episodic Other aftercare (20 sources) alf (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 of anticoagulants; Translations: [Long-term (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 of anticoagulants] Episodic Other aftercare (20 sources) Drug therapy finding; 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] 02-09-2019 Episodic Comment on above: Chronic use of fenta nyl patch Other aftercare (1 source) Other senior care (current) drug therapy; Translations: [Other senior care (current) drug therapy] Onset: 5 Episodic Other [...] q.aspx) or contact O Customer Support at [email or web address] 03-20-2013 Results Test Name Value Interpretation Reference Range Facility Anion gap in Serum or Plasma Ordered By: Lorraine Mena on 12-31-2024 Anion gap [Moles/Vol] 12 mmol/L 5-15 [facility] BUN/creatinine ratioOrdered By: Lorraine Mena on 12-31-2024 Urea nitrogen/Creatinine [Mass ratio] 21.5 mg/mg High 10-20 [facility] Bilirubin, totalOrdered By: Lorraine Mena on 12-31-2024 Bilirubin [Mass/Vol] 0.17 mg/dL 0.00-1.30 [facility] Carbon dioxide, total [Moles /volume] in Central venous bloodOrdered By: Lorraine Mena on 12-31-2024 CO2 [Moles/Vol] 30.5 mmol/L 21.0-32.0 [facility] Chloride assayOrdered By: Ledy Mena on 12-31-2024 Chloride [Moles/Vol] 95 mmol/L Low 98-108 [facility] Glomerular filtration rate ( GFR) estimation/1.73 sq m using serum, plasma, or whole bOrdered By: Lorraine Mena on 12-31-2024 GFR/1.73 sq M.predicted among non-blacks MDRD (S/P/Bld) [Vol rate/Area] 64 mL/min/{1.73_m2} >60 [facility] No Panel InformationOrdered By: Lorraine Mena on 12-31-2024 34 U/L <38 [facility] Potassium measurement (mass/ volume)Ordered By: Lorraine Mena on 12-31-2024 Potassium (Unsp spec) [Mass/Vol] 3.9 mmol/L 3.3-5.1 [facility] Serum creatinine measurement (mass/volume)Ordered By: Lorraine Mena on 12-31-2024 Creatinine [Mass/Vol] 1.19 mg/dL 0.70-1.20 [facility] Serum globulin measurementOr dered By: Lorraine Mena on 12-31-2024 Globulin (S) [Mass/Vol] 2.9 g/dL 2.2-4.2 [facility] Serum glucose measurement (m ass/volume)Ordered By: Lorraine Mena on 12-31-2024 Glucose [Mass/Vol] 110 mg/dL High 70-99 [facility] Serum or plasma alanine saul otransferase (ALT) measurementOrdered By: Roselynlisathao Christinebandaremi on 12-31-2024 ALT [Catalytic activity/Vol] 35 U/L <47 [facility] Serum or plasma albumin luis urement (mass/volume)Ordered By: Lorraine Christinebandaremi on 12-31-2024 Albumin [Mass/Vol] 3.9 g/dL 3.4-4.8 [facility] Serum or plasma albumin/glob ulin mass ratioOrdered By: Roselynlisathao Christinebandaremi on 12-31-2024 Albumin/Globulin [Mass ratio] 1.3 {ratio} 0.9-2.4 [facility] Serum or plasma alkaline kathleen sphatase measurementOrdered By: Lorraine Mena on 12-31-2024 ALP [Catalytic activity/Vol] 63 U/L 40-129 [facility] Serum or plasma calcium luis urement (mass/volume)Ordered By: Roselynlisathao Christinebandaremi on 12-31-2024 Calcium [Mass/Vol] 10.1 mg/dL 7.6-11.0 [facility] Serum or plasma urea nitroge n measurement (mass/volume)Ordered By: Lorraine Christinebandaremi on 12-31-2024 Urea nitrogen [Mass/Vol] 26 mg/dL High 4-19 [facility] Sodium levelOrdered By: Roselyn gauthierdaphney Trina on 12-31-2024 Sodium [Moles/Vol] 138 mmol/L 133-145 [facility] Total proteinOrdered By: Davidemi sidhu Trina on 12-31-2024 Protein [Mass/Vol] 6.9 g/dL 5.9-8.4 [facility] Absolute lymphocyte countOrd ered By: Lorraine Mena on 12-30-2024 Lymphocytes Auto (Unsp spec) [#/Vol] 1.08 10*3/uL 0.83-4.51 [facility] Anion gap in Serum or Plasma Ordered By: Lorraine Mena on 12-30-2024 Anion gap [Moles/Vol] 17 mmol/L High 5-15 [facility] Automated lymphocyte count a s percentage of total leukocytesOrdered By: Lorraine Mena on 12-30-2024 Lymphocytes/100 WBC Auto (Unsp spec) 14.4 % Low 19-41 [facility] BUN/creatinine ratioOrdered By: Lorraine Mena on 12-30-2024 Urea nitrogen/Creatinine [Mass ratio] 20.3 mg/mg High 10-20 [facility] Basophil percentageOrdered B y: Lorraine Mena on 12-30-2024 Basophils/100 WBC (Bld) 0.7 % 0-1 [facility] Bilirubin, totalOrdered By: Lorraine Mena on 12-30-2024 Bilirubin [Mass/Vol] 0.18 mg/dL 0.00-1.30 [facility] Carbon dioxide, total [Moles /volume] in Central venous bloodOrdered By: Lorraine Mena on 12-30-2024 CO2 [Moles/Vol] 28.7 mmol/L 21.0-32.0 [facility] Chloride assayOrdered By: Ledy roethao Mena on 12-30-2024 Chloride [Moles/Vol] 94 mmol/L Low 98-108 [facility] Eosinophil percentageOrdered By: Lorraine Christinebandaremi on 12-30-2024 Eosinophils/100 WBC (Bld) 0.8 % 0-5 [facility] Erythrocyte distribution wid th ratioOrdered By: Lorraine Mena on 12-30-2024 Erythrocyte distribution width (RBC) [Ratio] 15.0 % High 11.6-14.6 [facility] Erythrocyte distribution wid th standard deviationOrdered By: Lorraine Mena on 12-30-2024 Erythrocyte distribution width (RBC) [Ratio] 47.7 fl High 35.1-43.9 [facility] Glomerular filtration rate ( GFR) estimation/1.73 sq m using serum, plasma, or whole bOrdered By: Lorraine Mena on 12-30-2024 GFR/1.73 sq M.predicted among non-blacks MDRD (S/P/Bld) [Vol rate/Area] 64 mL/min/{1.73_m2} >60 [facility] Hematocrit Auto (Bld) [Volum e fraction]Ordered By: Lorraine Mena on 12-30-2024 Hematocrit (Bld) [Volume fraction] 36.1 % Low 40-54 [facility] Hemoglobin measurementOrdere d By: Lorraine Mena on 12-30-2024 Hemoglobin (Bld) [Mass/Vol] 11.3 g/dL Low 13.0-16.5 [facility] Immature granulocytes/100 WB C Auto (Bld)Ordered By: Lorraine Mena on 12-30-2024 Immature granulocytes/100 WBC (Bld) 0.300 % 0.0-0.9 [facility] MCV (mean corpuscular volume ) determinationOrdered By: Lorraine Mena on 12-30-2024 MCV (RBC) [Entitic vol] 88.3 fL 80-94 [facility] Mean corpuscular hemoglobin (MCH) determinationOrdered By: Lorraine Mena on 12-30-2024 MCH (RBC) [Entitic mass] 27.6 pg 27.0-32.0 [facility] Monocyte percentageOrdered B y: Lorraine Mena on 12-30-2024 Monocytes/100 WBC (Bld) 9.6 % 0-10 [facility] Neutrophil percentageOrdered By: Lorraine Mena on 12-30-2024 Neutrophils/100 WBC (Bld) 74.2 % High 47-70 [facility] No Panel InformationOrdered By: Lorraine Mena on 12-30-2024 34 U/L <38 [facility] Platelet countOrdered By: Ledy Mena on 12-30-2024 Platelets (Bld) [#/Vol] 353 10*3/uL 150-450 [facility] Potassium measurement (mass/ volume)Ordered By: Lorraine Mena on 12-30-2024 Potassium (Unsp spec) [Mass/Vol] 4.2 mmol/L 3.3-5.1 [facility] RBC Auto (Bld) [#/Vol]Ordere d By: Lorraine Mena on 12-30-2024 RBC (Bld) [#/Vol] 4.09 10*6/uL Low 4.6-6.2 [facility] Serum creatinine measurement (mass/volume)Ordered By: Lorraine Mena on 12-30-2024 Creatinine [Mass/Vol] 1.19 mg/dL 0.70-1.20 [facility] Serum globulin measurementOr dered By: Lorraine Mena on 12-30-2024 Globulin (S) [Mass/Vol] 2.2 g/dL 2.2-4.2 [facility] Serum glucose measurement (m ass/volume)Ordered By: Lorraine Mena on 12-30-2024 Glucose [Mass/Vol] 105 mg/dL High 70-99 [facility] Serum or plasma alanine saul otransferase (ALT) measurementOrdered By: Lorraine Mena on 12-30-2024 ALT [Catalytic activity/Vol] 34 U/L <47 [facility] Serum or plasma albumin luis urement (mass/volume)Ordered By: Lorraine Mena on 12-30-2024 Albumin [Mass/Vol] 4.0 g/dL 3.4-4.8 [facility] Serum or plasma albumin/glob ulin mass ratioOrdered By: Lorraine Mena 12-30-2024 Albumin/Globulin [Mass ratio] 1.8 {ratio} 0.9-2.4 [facility] Serum or plasma alkaline kathleen sphatase measurementOrdered By: Lorraine Mena 12-30-2024 ALP [Catalytic activity/Vol] 62 U/L 40-129 [facility] Serum or plasma calcium luis urement (mass/volume)Ordered By: Lorraine Mena on 12-30-2024 Calcium [Mass/Vol] 9.8 mg/dL 7.6-11.0 [facility] Serum or plasma carbamazepin e level (mass/volume)Ordered By: Lorraine Mean on 12-30-2024 carBAMazepine [Mass/Vol] 10.8 ug/mL 4.0-12.0 [facility] Serum or plasma urea nitroge n measurement (mass/volume)Ordered By: Lorraine Mena 12-30-2024 Urea nitrogen [Mass/Vol] 24 mg/dL High 4-19 [facility] Sodium levelOrdered By: Roselyn Mena on 12-30-2024 Sodium [Moles/Vol] 140 mmol/L 133-145 [facility] Total proteinOrdered By: David Mena on 12-30-2024 Protein [Mass/Vol] 6.3 g/dL 5.9-8.4 [facility] White blood cell (WBC) count Ordered By: Lorraine Mena on 12-30-2024 WBC (Bld) [#/Vol] 7.5 10*3/uL 4.4-11.0 [facility] Absolute lymphocyte countOrd ered By: Shilpa Ben on 12-26-2024 Lymphocytes Auto (Unsp spec) [#/Vol] 0.66 10*3/uL Low 0.83-4.51 [facility] Anion gap in Serum or Plasma Ordered By: Shilpa Ben on 12-26-2024 Anion gap [Moles/Vol] 12 mmol/L 5-15 [facility] Automated lymphocyte count a s percentage of total leukocytesOrdered By: Shilpa Ben on 12-26-2024 Lymphocytes/100 WBC Auto (Unsp spec) 6.5 % Low 19-41 [facility] BUN/creatinine ratioOrdered By: Shilpa Ben on 12-26-2024 Urea nitrogen/Creatinine [Mass ratio] 14.4 mg/mg 10-20 [facility] Basophil percentageOrdered B y: Ben on 12-26-2024 Basophils/100 WBC (Bld) 0.3 % 0- [facility] Bilirubin, totalOrdered By: Shilpa Ben on 12-26-2024 Bilirubin [Mass/Vol] 0.23 mg/dL 0.00-1.30 [facility] CBC W/Diff, Automatedon 12-17 Absolute Lymph 0.66 X10 3/uL Low 0.83-4.51 [facility] Comment on above: Performed By: #### L 500.4050, L100.0100 ####[facility] [address] [place], [address] Absolute Neut 8.7 X10 3/uL High 2.0-7.7 [facility] Comment on above: Performed By: #### L 500.4050, L100.0100 ####[facility] [address] [place], [address] Basophils/100 WBC (Bld) 0.3 % Normal 0-1 [facility] Comment on above: Performed By: #### L 500.4050, L100.0100 ####[facility] [address] [place], [address] Eosinophils/100 WBC (Bld) 0.2 % Normal 0-5 [facility] Comment on above: Performed By: #### L 500.4050, L100.0100 ####[facility] [address] [place], [address] Erythrocyte distribution width (RBC) [Ratio] 14.7 % High 11.6-14.6 [facility] Comment on above: Performed By: #### L 500.4050, L100.0100 ####[facility] [address] [place], [address] Hematocrit (Bld) [Volume fraction] 35.8 % Low 40-54 [facility] Comment on above: Performed By: #### L 500.4050, L100.0100 ####[facility] [address] [place], [address] Hemoglobin (Bld) [Mass/Vol] 11.3 g/dL Low 13.0-16.5 [facility] Comment on above: Performed By: #### L 500.4050, L100.0100 ####[facility] [address] [place], [address] IG% 0.500 Normal 0.0-0.9 [facility] Comment on above: Result Comment: IG% - Immature Granulocytes (promyelocytes, myelocytes andmetamyelocytes) > 1% indicates that a LEFT SHIFT is Present. Performed By: #### L 500.4050, L100.0100 ####[facility] [address] [place], [address] Lymphocytes/100 WBC (Bld) 6.5 % Low 19-41 [facility] Comment on above: Performed By: #### L 500.4050, L100.0100 ####[facility] [address] [place], [address] MCH (RBC) [Entitic mass] 27.6 pg Normal 27.0-32.0 [facility] Comment on above: Performed By: #### L 500.4050, L100.0100 ####[facility] [address] [place], [address] MCHC (RBC) [Mass/Vol] 31.6 g/dL Low 32-36 [facility] Comment on above: Performed By: #### L 500.4050, L100.0100 ####[facility] [address] [place], [address] MCV (RBC) [Entitic vol] 87.3 fL Normal 80-94 [facility] Comment on above: Performed By: #### L 500.4050, L100.0100 ####[facility] [address] [place], [address] Monocytes/100 WBC (Bld) 7.8 % Normal 0-10 [facility] Comment on above: Performed By: #### L 500.4050, L100.0100 ####[facility] [address] [place], [address] Neutrophils/100 WBC (Bld) 84.7 % High 47-70 [facility] Comment on above: Performed By: #### L 500.4050, L100.0100 ####[facility] [address] [place], [address] Nucleated RBC (Bld) [#/Vol] 0 10*3/uL Normal 0-5 [facility] Comment on above: Performed By: #### L 500.4050, L100.0100 ####[facility] [address] [place], [address] Platelet mean volume (Bld) [Entitic vol] 10.1 fL Normal 6.2-12.0 [facility] Comment on above: Performed By: #### L 500.4050, L100.0100 ####[facility] [address] [place], [address] Platelets (Bld) [#/Vol] 363 10*3/uL Normal 150-450 [facility] Comment on above: Performed By: #### L 500.4050, L100.0100 ####[facility] [address] [place], [address] RBC (Bld) [#/Vol] 4.10 10*6/uL Low 4.6-6.2 [facility] Comment on above: Performed By: #### L 500.4050, L100.0100 ####[facility] [address] [place], [address] RDW SD 46.5 fl High 35.1-43.9 [facility] Comment on above: Performed By: #### L 500.4050, L100.0100 ####[facility] [address] [place], [address] WBC (Bld) [#/Vol] 10.2 10*3/uL Normal 4.4-11.0 [facility] Comment on above: Performed By: #### L 500.4050, L100.0100 ####[facility] [address] [place], [address] Carbon dioxide, total [Moles /volume] in Central venous bloodOrdered By: Shilpa Contreras on 12-26-2024 CO2 [Moles/Vol] 30.3 mmol/L 21.0-32.0 [facility] Chloride assayOrdered By: Kisha Contreras on 12-26-2024 Chloride [Moles/Vol] 98 mmol/L 98-108 [facility] Comprehensive Metabolic Prof ilon 12-26-2024 Albumin [Mass/Vol] 3.7 g/dL Normal 3.4-4.8 [facility] Comment on above: Performed By: #### L 500.4050, L100.0100 ####[facility] [address] [place], [address] Albumin/Globulin [Mass ratio] 1.6 {ratio} Normal 0.9-2.4 [facility] Comment on above: Performed By: #### L 500.4050, L100.0100 ####[facility] [address] [place], [address] ALK PHOS 67 U/L Normal 40-129 [facility] Comment on above: Performed By: #### L 500.4050, L100.0100 ####[facility] [address] [place], [address] ALT [Catalytic activity/Vol] 19 U/L Normal <=46 [facility] Comment on above: Performed By: #### L 500.4050, L100.0100 ####[facility] [address] [place], [address] AST [Catalytic activity/Vol] 22 U/L Normal <=37 [facility] Comment on above: Performed By: #### L 500.4050, L100.0100 ####[facility] [address] [place], [address] Bilirubin [Mass/Vol] 0.23 mg/dL Normal 0.00-1.30 [facility] Comment on above: Performed By: #### L 500.4050, L100.0100 ####[facility] [address] [place], [address] BUN/CRE 14.4 RATIO Normal 10-20 [facility] Comment on above: Performed By: #### L 500.4050, L100.0100 ####[facility] [address] [place], [address] Calcium [Mass/Vol] 9.7 mg/dL Normal 7.6-11.0 [facility] Comment on above: Performed By: #### L 500.4050, L100.0100 ####[facility] [address] [place], [address] Chloride [Moles/Vol] 98 mmol/L Normal 98-108 [facility] Comment on above: Performed By: #### L 500.4050, L100.0100 ####[facility] [address] [place], [address] CO2 [Moles/Vol] 30.3 mmol/L Normal 21.0-32.0 [facility] Comment on above: Performed By: #### L 500.4050, L100.0100 ####[facility] [address] [place], [address] Creatinine [Mass/Vol] 1.07 mg/dL Normal 0.70-1.20 [facility] Comment on above: Performed By: #### L 500.4050, L100.0100 ####[facility] [address] [place], [address] ECRCL 57.71 ml/min Normal 50-250 [facility] Comment on above: Performed By: #### L 500.4050, L100.0100 ####[facility] [address] [place], [address] GAP 12 Normal 5-15 [facility] Comment on above: Performed By: #### L 500.4050, L100.0100 ####[facility] [address] [place], [address] GFR/1.73 sq M.predicted among non-blacks MDRD (S/P/Bld) [Vol rate/Area] 72 mL/min/{1.73_m2} Normal >60 [facility] Comment on above: Result Comment: mL/m in/1.73m2 CKD-EPI Creatinine Equation (2020) Performed By: #### L 500.4050, L100.0100 ####[facility] [address] [place], [address] Globulin (S) [Mass/Vol] 2.3 g/dL Normal 2.2-4.2 [facility] Comment on above: Performed By: #### L 500.4050, L100.0100 ####[facility] [address] [place], [address] Glucose [Mass/Vol] 142 mg/dL High 70-99 [facility] Comment on above: Performed By: #### L 500.4050, L100.0100 ####[facility] [address] [place], [address] Potassium [Moles/Vol] 3.4 mmol/L Normal 3.3-5.1 [facility] Comment on above: Performed By: #### L 500.4050, L100.0100 ####[facility] [address] [place], [address] Sodium [Moles/Vol] 140 mmol/L Normal 133-145 [facility] Comment on above: Performed By: #### L 500.4050, L100.0100 ####[facility] [address] [place], [address] T PROT 6.0 g/dL Normal 5.9-8.4 [facility] Comment on above: Performed By: #### L 500.4050, L100.0100 ####[facility] [address] [place], [place], [id number] Urea nitrogen [Mass/Vol] 15 mg/dL Normal 4-19 [facility] Comment on above: Performed By: #### L 500.4050, L100.0100 ####[facility] [address] [place], [place], [id number] Eosinophil percentageOrdered By: Shilpa Ben on 12-26-2024 Eosinophils/100 WBC (Bld) 0.2 % 0-5 [facility] Erythrocyte distribution wid th ratioOrdered By: Shilpa White on 12-26-2024 Erythrocyte distribution width (RBC) [Ratio] 14.7 % High 11.6-14.6 [facility] Erythrocyte distribution wid th standard deviationOrdered By: Shilpa Ben on 12-26-2024 Erythrocyte distribution width (RBC) [Ratio] 46.5 fl High 35.1-43.9 [facility] Glomerular filtration rate ( GFR) estimation/1.73 sq m using serum, plasma, or whole bOrdered By: Shilpa Contreras on 12-26-2024 GFR/1.73 sq M.predicted among non-blacks MDRD (S/P/Bld) [Vol rate/Area] 72 mL/min/{1.73_m2} >60 [facility] Hematocrit Auto (Bld) [Volum e fraction]Ordered By: Shilpa Contreras 12-26-2024 Hematocrit (Bld) [Volume fraction] 35.8 % Low 40-54 [facility] Hemoglobin measurementOrdere d By: Shilpa Contreras on 12-26-2024 Hemoglobin (Bld) [Mass/Vol] 11.3 g/dL Low 13.0-16.5 [facility] Immature granulocytes/100 WB C Auto (Bld)Ordered By: Shilpa Ben on 12-26-2024 Immature granulocytes/100 WBC (Bld) 0.500 % 0.0-0.9 [facility] MCV (mean corpuscular volume ) determinationOrdered By: Shilpa Contreras 12-26-2024 MCV (RBC) [Entitic vol] 87.3 fL 80-94 [facility] Mean corpuscular hemoglobin (MCH) determinationOrdered By: Shilpa Contreras on 12-26-2024 MCH (RBC) [Entitic mass] 27.6 pg 27.0-32.0 [facility] Monocyte percentageOrdered B y: Shilpa Contreras on 12-26-2024 Monocytes/100 WBC (Bld) 7.8 % 0-10 [facility] Neutrophil percentageOrdered By: Ben on 12-26-2024 Neutrophils/100 WBC (Bld) 84.7 % High 47-70 [facility] No Panel InformationOrdered By: Shilpa Contreras on 12-26-2024 22 U/L <38 [facility] Platelet countOrdered By: Kisha solares Ben on 12-26-2024 Platelets (Bld) [#/Vol] 363 10*3/uL 150-450 [facility] Potassium measurement (mass/ volume)Ordered By: Shilpa Contreras on 12-26-2024 Potassium (Unsp spec) [Mass/Vol] 3.4 mmol/L 3.3-5.1 [facility] RBC Auto (Bld) [#/Vol]Ordere d By: Shilpa Contreras on 12-26-2024 RBC (Bld) [#/Vol] 4.10 10*6/uL Low 4.6-6.2 [facility] Serum creatinine measurement (mass/volume)Ordered By: Shilpa Contreras on 12-26-2024 Creatinine [Mass/Vol] 1.07 mg/dL 0.70-1.20 [facility] Serum globulin measurementOr dered By: Shilpa Contreras on 12-26-2024 Globulin (S) [Mass/Vol] 2.3 g/dL 2.2-4.2 [facility] Serum glucose measurement (m ass/volume)Ordered By: Shilpa Contreras on 12-26-2024 Glucose [Mass/Vol] 142 mg/dL High 70-99 [facility] Serum or plasma alanine saul otransferase (ALT) measurementOrdered By: Shilpa Contreras on 12-26-2024 ALT [Catalytic activity/Vol] 19 U/L <47 [facility] Serum or plasma albumin luis urement (mass/volume)Ordered By: Shilpa oCntreras on 12-26-2024 Albumin [Mass/Vol] 3.7 g/dL 3.4-4.8 [facility] Serum or plasma albumin/glob ulin mass ratioOrdered By: Shilpa Contreras on 12-26-2024 Albumin/Globulin [Mass ratio] 1.6 {ratio} 0.9-2.4 [facility] Serum or plasma alkaline kathleen sphatase measurementOrdered By: Shilpa Ben on 12-26-2024 ALP [Catalytic activity/Vol] 67 U/L 40-129 [facility] Serum or plasma calcium luis urement (mass/volume)Ordered By: Shilpa Contreras on 12-26-2024 Calcium [Mass/Vol] 9.7 mg/dL 7.6-11.0 [facility] Serum or plasma urea nitroge n measurement (mass/volume)Ordered By: Shilpa Contreras on 12-26-2024 Urea nitrogen [Mass/Vol] 15 mg/dL 4-19 [facility] Sodium levelOrdered By: Rovertou mn Ben on 12-26-2024 Sodium [Moles/Vol] 140 mmol/L 133-145 [facility] Total proteinOrdered By: Roverto umn Ben on 12-26-2024 Protein [Mass/Vol] 6.0 g/dL 5.9-8.4 [facility] White blood cell (WBC) count Ordered By: Shilpa Contreras on 12-26-2024 WBC (Bld) [#/Vol] 10.2 10*3/uL 4.4-11.0 [facility] CBC W/Diff, Automatedon 07-0 Absolute Lymph 0.96 X10 3/uL Normal 0.83-4.51 [facility] Comment on above: Performed By: #### L 100.0100, L501.5200, L500.4050 ####[facility] [address] [place], [address] Absolute Neut 9.8 X10 3/uL High 2.0-7.7 [facility] Comment on above: Performed By: #### L 100.0100, L501.5200, L500.4050 ####[facility] [address] [place], [address] Basophils/100 WBC (Bld) 0.3 % Normal 0-1 [facility] Comment on above: Performed By: #### L 100.0100, L501.5200, L500.4050 ####[facility] [address] [place], [address] Eosinophils/100 WBC (Bld) 0.3 % Normal 0-5 [facility] Comment on above: Performed By: #### L 100.0100, L501.5200, L500.4050 ####[facility] [address] [place], [address] Erythrocyte distribution width (RBC) [Ratio] 14.5 % Normal 11.6-14.6 [facility] Comment on above: Performed By: #### L 100.0100, L501.5200, L500.4050 ####[facility] [address] [place], [address] Hematocrit (Bld) [Volume fraction] 40.5 % Normal 40-54 [facility] Comment on above: Performed By: #### L 100.0100, L501.5200, L500.4050 ####[facility] [address] [place], [address] Hemoglobin (Bld) [Mass/Vol] 12.5 g/dL Low 13.0-16.5 [facility] Comment on above: Performed By: #### L 100.0100, L501.5200, L500.4050 ####[facility] [address] [place], [address] IG% 0.700 Normal 0.0-0.9 [facility] Comment on above: Result Comment: IG% - Immature Granulocytes (promyelocytes, myelocytes andmetamyelocytes) > 1% indicates that a LEFT SHIFT is Present. Performed By: #### L 100.0100, L501.5200, L500.4050 ####[facility] [address] [place], [address] Lymphocytes/100 WBC (Bld) 8.0 % Low 19-41 [facility] Comment on above: Performed By: #### L 100.0100, L501.5200, L500.4050 ####[facility] [address] [place], [address] MCH (RBC) [Entitic mass] 27.4 pg Normal 27.0-32.0 [facility] Comment on above: Performed By: #### L 100.0100, L501.5200, L500.4050 ####[facility] [address] [place], [address] MCHC (RBC) [Mass/Vol] 30.9 g/dL Low 32-36 [facility] Comment on above: Performed By: #### L 100.0100, L501.5200, L500.4050 ####[facility] [address] [place], [address] MCV (RBC) [Entitic vol] 88.6 fL Normal 80-94 [facility] Comment on above: Performed By: #### L 100.0100, L501.5200, L500.4050 ####[facility] [address] [place], [address] Monocytes/100 WBC (Bld) 8.4 % Normal 0-10 [facility] Comment on above: Performed By: #### L 100.0100, L501.5200, L500.4050 ####[facility] [address] [place], [address] Neutrophils/100 WBC (Bld) 82.3 % High 47-70 [facility] Comment on above: Performed By: #### L 100.0100, L501.5200, L500.4050 ####[facility] [address] [place], [address] Nucleated RBC (Bld) [#/Vol] 0 10*3/uL Normal 0-5 [facility] Comment on above: Performed By: #### L 100.0100, L501.5200, L500.4050 ####[facility] [address] [place], [address] Platelet mean volume (Bld) [Entitic vol] 10.2 fL Normal 6.2-12.0 [facility] Comment on above: Performed By: #### L 100.0100, L501.5200, L500.4050 ####[facility] [address] [place], [address] Platelets (Bld) [#/Vol] 449 10*3/uL Normal 150-450 [facility] Comment on above: Performed By: #### L 100.0100, L501.5200, L500.4050 ####[facility] [address] [place], [address] RBC (Bld) [#/Vol] 4.57 10*6/uL Low 4.6-6.2 [facility] Comment on above: Performed By: #### L 100.0100, L501.5200, L500.4050 ####[facility] [address] [place], [address] RDW SD 45.9 fl High 35.1-43.9 [facility] Comment on above: Performed By: #### L 100.0100, L501.5200, L500.4050 ####[facility] [address] [place], [address] WBC (Bld) [#/Vol] 12.0 10*3/uL High 4.4-11.0 [facility] Comment on above: Performed By: #### L 100.0100, L501.5200, L500.4050 ####[facility] [address] [place], [address] Comprehensive Metabolic [facility] 12-25-2024 Albumin [Mass/Vol] 4.0 g/dL Normal 3.4-4.8 [facility] Comment on above: Performed By: #### L 100.0100, L501.5200, L500.4050 ####[facility] [address] [place], [address] Albumin/Globulin [Mass ratio] 1.5 {ratio} Normal 0.9-2.4 [facility] Comment on above: Performed By: #### L 100.0100, L501.5200, L500.4050 ####[facility] [address] [place], [address] ALK PHOS 74 U/L Normal 40-129 [facility] Comment on above: Performed By: #### L 100.0100, L501.5200, L500.4050 ####[facility] [address] [place], [address] ALT [Catalytic activity/Vol] 22 U/L Normal <=46 [facility] Comment on above: Performed By: #### L 100.0100, L501.5200, L500.4050 ####[facility] [address] [place], [address] AST [Catalytic activity/Vol] 31 U/L Normal <=37 [facility] Comment on above: Performed By: #### L 100.0100, L501.5200, L500.4050 ####[facility] [address] [place], [address] Bilirubin [Mass/Vol] 0.23 mg/dL Normal 0.00-1.30 [facility] Comment on above: Performed By: #### L 100.0100, L501.5200, L500.4050 ####[facility] [address] [place], [address] BUN/CRE 13.4 RATIO Normal 10-20 [facility] Comment on above: Performed By: #### L 100.0100, L501.5200, L500.4050 ####[facility] [address] [place], [address] Calcium [Mass/Vol] 9.5 mg/dL Normal 7.6-11.0 [facility] Comment on above: Performed By: #### L 100.0100, L501.5200, L500.4050 ####[facility] [address] [place], [address] Chloride [Moles/Vol] 101 mmol/L Normal 98-108 [facility] Comment on above: Performed By: #### L 100.0100, L501.5200, L500.4050 ####[facility] [address] [place], [address] CO2 [Moles/Vol] 27.5 mmol/L Normal 21.0-32.0 [facility] Comment on above: Performed By: #### L 100.0100, L501.5200, L500.4050 ####[facility] [address] [place], [address] Creatinine [Mass/Vol] 1.05 mg/dL Normal 0.70-1.20 [facility] Comment on above: Performed By: #### L 100.0100, L501.5200, L500.4050 ####[facility] [address] [place], [address] ECRCL 58.81 ml/min Normal 50-250 [facility] Comment on above: Performed By: #### L 100.0100, L501.5200, L500.4050 ####[facility] [address] [place], [address] GAP 12 Normal 5-15 [facility] Comment on above: Performed By: #### L 100.0100, L501.5200, L500.4050 ####[facility] [address] [place], [address] GFR/1.73 sq M.predicted among non-blacks MDRD (S/P/Bld) [Vol rate/Area] 74 mL/min/{1.73_m2} Normal >60 [facility] Comment on above: Result Comment: mL/m in/1.73m2 CKD-EPI Creatinine Equation (2020) Performed By: #### L 100.0100, L501.5200, L500.4050 ####[facility] [address] [place], [address] Globulin (S) [Mass/Vol] 2.7 g/dL Normal 2.2-4.2 [facility] Comment on above: Performed By: #### L 100.0100, L501.5200, L500.4050 ####[facility] [address] [place], [address] Glucose [Mass/Vol] 118 mg/dL High 70-99 [facility] Comment on above: Performed By: #### L 100.0100, L501.5200, L500.4050 ####[facility] [address] [place], [address] Potassium [Moles/Vol] 3.3 mmol/L Normal 3.3-5.1 [facility] Comment on above: Performed By: #### L 100.0100, L501.5200, L500.4050 ####[facility] [address] [place], [address] Sodium [Moles/Vol] 141 mmol/L Normal 133-145 [facility] Comment on above: Performed By: #### L 100.0100, L501.5200, L500.4050 ####[facility] [address] [place], [address] T PROT 6.7 g/dL Normal 5.9-8.4 [facility] Comment on above: Performed By: #### L 100.0100, L501.5200, L500.4050 ####[facility] [address] [place], [address] Urea nitrogen [Mass/Vol] 14 mg/dL Normal 4-19 [facility] Comment on above: Performed By: #### L 100.0100, L501.5200, L500.4050 ####[facility] [address] [place], [address] Magnesiumon 12-25-2024 Magnesium [Mass/Vol] 2.3 mg/dL High 1.5-2.2 [facility] Comment on above: Performed By: #### L 100.0100, L501.5200, L500.4050 ####[facility] [address] [place], [address] Magnesium measurement (mass/ volume)Ordered By: Sania Peña on 12-25-2024 Magnesium (Unsp spec) [Mass/Vol] 2.3 mg/dL High 1.5-2.2 [facility] Phosphoruson 12-25-2024 Phosphate [Mass/Vol] 2.0 mg/dL Low 2.7-4.5 [facility] Comment on above: Performed By: #### L 501.2300 ####[facility] [address] [place], [address] CBC W/Diff, Automatedon 07-0 Absolute Lymph 0.72 X10 3/uL Low 0.83-4.51 [facility] Comment on above: Performed By: #### L 100.0100, L500.4050 ####[facility] [address] [place], [address] Absolute Neut 7.0 X10 3/uL Normal 2.0-7.7 [facility] Comment on above: Performed By: #### L 100.0100, L500.4050 ####[facility] [address], [address] Basophils/100 WBC (Bld) 0.5 % Normal 0-1 [facility] Comment on above: Performed By: #### L 100.0100, L500.4050 ####[facility] [address] [place], [address] Eosinophils/100 WBC (Bld) 0.4 % Normal 0-5 [facility] Comment on above: Performed By: #### L 100.0100, L500.4050 ####[facility] [address] [place], [address] Erythrocyte distribution width (RBC) [Ratio] 14.6 % Normal 11.6-14.6 [facility] Comment on above: Performed By: #### L 100.0100, L500.4050 ####[facility] [address] [place], [address] Hematocrit (Bld) [Volume fraction] 37.0 % Low 40-54 [facility] Comment on above: Performed By: #### L 100.0100, L500.4050 ####[facility] [address] [place], [address] Hemoglobin (Bld) [Mass/Vol] 11.5 g/dL Low 13.0-16.5 [facility] Comment on above: Performed By: #### L 100.0100, L500.4050 ####[facility] [address] [place], [address] IG% 0.500 Normal 0.0-0.9 [facility] Comment on above: Result Comment: IG% - Immature Granulocytes (promyelocytes, myelocytes andmetamyelocytes) > 1% indicates that a LEFT SHIFT is Present. Performed By: #### L 100.0100, L500.4050 ####[facility] [address] [place], [address] Lymphocytes/100 WBC (Bld) 8.5 % Low 19-41 [facility] Comment on above: Performed By: #### L 100.0100, L500.4050 ####[facility] [address] [place], [address] MCH (RBC) [Entitic mass] 27.7 pg Normal 27.0-32.0 [facility] Comment on above: Performed By: #### L 100.0100, L500.4050 ####[facility] [address] [place], [address] MCHC (RBC) [Mass/Vol] 31.1 g/dL Low 32-36 [facility] Comment on above: Performed By: #### L 100.0100, L500.4050 ####[facility] [address] [place], [address] MCV (RBC) [Entitic vol] 89.2 fL Normal 80-94 [facility] Comment on above: Performed By: #### L 100.0100, L500.4050 ####[facility] [address] [place], [address] Monocytes/100 WBC (Bld) 7.7 % Normal 0-10 [facility] Comment on above: Performed By: #### L 100.0100, L500.4050 ####[facility] [address] [place], [address] Neutrophils/100 WBC (Bld) 82.4 % High 47-70 [facility] Comment on above: Performed By: #### L 100.0100, L500.4050 ####[facility] [address] [place], [address] Nucleated RBC (Bld) [#/Vol] 0 10*3/uL Normal 0-5 [facility] Comment on above: Performed By: #### L 100.0100, L500.4050 ####[facility] [address] [place], [address] Platelet mean volume (Bld) [Entitic vol] 9.7 fL Normal 6.2-12.0 [facility] Comment on above: Performed By: #### L 100.0100, L500.4050 ####[facility] [address] [place], [address] Platelets (Bld) [#/Vol] 380 10*3/uL Normal 150-450 [facility] Comment on above: Performed By: #### L 100.0100, L500.4050 ####[facility] [address] [place], [address] RBC (Bld) [#/Vol] 4.15 10*6/uL Low 4.6-6.2 [facility] Comment on above: Performed By: #### L 100.0100, L500.4050 ####[facility] [address] [place], [address] RDW SD 46.6 fl High 35.1-43.9 [facility] Comment on above: Performed By: #### L 100.0100, L500.4050 ####[facility] [address] [place], [address] WBC (Bld) [#/Vol] 8.5 10*3/uL Normal 4.4-11.0 [facility] Comment on above: Performed By: #### L 100.0100, L500.4050 ####[facility] [address] [place], [address] Comprehensive Metabolic Prof ilon 12-24-2024 Albumin [Mass/Vol] 3.8 g/dL Normal 3.4-4.8 [facility] Comment on above: Performed By: #### L 100.0100, L500.4050 ####[facility] [address] [place], [address] Albumin/Globulin [Mass ratio] 1.8 {ratio} Normal 0.9-2.4 [facility] Comment on above: Performed By: #### L 100.0100, L500.4050 ####[facility] [address] [place], [address] ALK PHOS 64 U/L Normal 40-129 [facility] Comment on above: Performed By: #### L 100.0100, L500.4050 ####[facility] [address] [place], [address] ALT [Catalytic activity/Vol] 28 U/L Normal <=46 [facility] Comment on above: Performed By: #### L 100.0100, L500.4050 ####[facility] [address] [place], [address] AST [Catalytic activity/Vol] 23 U/L Normal <=37 [facility] Comment on above: Performed By: #### L 100.0100, L500.4050 ####[facility] [address] [place], [address] Bilirubin [Mass/Vol] 0.25 mg/dL Normal 0.00-1.30 [facility] Comment on above: Performed By: #### L 100.0100, L500.4050 ####[facility] [address] [place], [address] BUN/CRE 16.9 RATIO Normal 10-20 [facility] Comment on above: Performed By: #### L 100.0100, L500.4050 ####[facility] [id number] [place], [address] Calcium [Mass/Vol] 8.4 mg/dL Normal 7.6-11.0 [facility] Comment on above: Performed By: #### L 100.0100, L500.4050 ####[facility] [id number] [place], [address] Chloride [Moles/Vol] 106 mmol/L Normal 98-108 [facility] Comment on above: Performed By: #### L 100.0100, L500.4050 ####[facility] [id number] [place], [address] CO2 [Moles/Vol] 23.1 mmol/L Normal 21.0-32.0 [facility] Comment on above: Performed By: #### L 100.0100, L500.4050 ####[facility] [address] [place], [address] Creatinine [Mass/Vol] 0.98 mg/dL Normal 0.70-1.20 [facility] Comment on above: Performed By: #### L 100.0100, L500.4050 ####[facility] [address] [place], [address] ECRCL 63.01 ml/min Normal 50-250 [facility] Comment on above: Performed By: #### L 100.0100, L500.4050 ####[facility] [address] [place], [address] GAP 11 Normal 5-15 [facility] Comment on above: Performed By: #### L 100.0100, L500.4050 ####[facility] [address] [place], [address] GFR/1.73 sq M.predicted among non-blacks MDRD (S/P/Bld) [Vol rate/Area] 81 mL/min/{1.73_m2} Normal >60 [facility] Comment on above: Result Comment: mL/m in/1.73m2 CKD-EPI Creatinine Equation (2020) Performed By: #### L 100.0100, L500.4050 ####[facility] [address] [place], [address] Globulin (S) [Mass/Vol] 2.2 g/dL Normal 2.2-4.2 [facility] Comment on above: Performed By: #### L 100.0100, L500.4050 ####[facility] [address] [place], [address] Glucose [Mass/Vol] 92 mg/dL Normal 70-99 [facility] Comment on above: Performed By: #### L 100.0100, L500.4050 ####[facility] [address] [place], [address] Potassium [Moles/Vol] 3.9 mmol/L Normal 3.3-5.1 [facility] Comment on above: Performed By: #### L 100.0100, L500.4050 ####[facility] [address], [address] Sodium [Moles/Vol] 140 mmol/L Normal 133-145 [facility] Comment on above: Performed By: #### L 100.0100, L500.4050 ####[facility] [address] [place], [address] T PROT 6.0 g/dL Normal 5.9-8.4 [facility] Comment on above: Performed By: #### L 100.0100, L500.4050 ####[facility] [address] [place], [address] Urea nitrogen [Mass/Vol] 17 mg/dL Normal 4-19 [facility] Comment on above: Performed By: #### L 100.0100, L500.4050 ####[facility] [address] [place], [address] Basic Metabolic Profile (BMP )on 12-23-2024 BUN/CRE 16.4 RATIO Normal 10-20 [facility] Comment on above: Performed By: #### L 500.2500, L100.0500 ####[facility] [address] [place], [address] Calcium [Mass/Vol] 8.4 mg/dL Normal 7.6-11.0 [facility] Comment on above: Performed By: #### L 500.2500, L100.0500 ####[facility] [address] [place], [address] Chloride [Moles/Vol] 104 mmol/L Normal 98-108 [facility] Comment on above: Performed By: #### L 500.2500, L100.0500 ####[facility] [address] [place], [address] CO2 [Moles/Vol] 24.1 mmol/L Normal 21.0-32.0 [facility] Comment on above: Performed By: #### L 500.2500, L100.0500 ####[facility] [address] [place], [address] Creatinine [Mass/Vol] 1.02 mg/dL Normal 0.70-1.20 [facility] Comment on above: Performed By: #### L 500.2500, L100.0500 ####[facility] [address] [place], [address] ECRCL 60.54 ml/min Normal 50-250 [facility] Comment on above: Performed By: #### L 500.2500, L100.0500 ####[facility] [address] [place], [address] GAP 11 Normal 5-15 [facility] Comment on above: Performed By: #### L 500.2500, L100.0500 ####[facility] [address] [place], [address] GFR/1.73 sq M.predicted among non-blacks MDRD (S/P/Bld) [Vol rate/Area] 77 mL/min/{1.73_m2} Normal >60 [facility] Comment on above: Result Comment: mL/m in/1.73m2 CKD-EPI Creatinine Equation (2020) Performed By: #### L 500.2500, L100.0500 ####[facility] [address] [place], [address] Glucose [Mass/Vol] 85 mg/dL Normal 70-99 [facility] Comment on above: Performed By: #### L 500.2500, L100.0500 ####[facility] [address] [place], [address] Potassium [Moles/Vol] 3.8 mmol/L Normal 3.3-5.1 [facility] Comment on above: Performed By: #### L 500.2500, L100.0500 ####[facility] [address] [place], [address] Sodium [Moles/Vol] 139 mmol/L Normal 133-145 [facility] Comment on above: Performed By: #### L 500.2500, L100.0500 ####[facility] [address] [place], [address] Urea nitrogen [Mass/Vol] 17 mg/dL Normal 4-19 [facility] Comment on above: Performed By: #### L 500.2500, L100.0500 ####[facility] [address], [address] CBC-Complete Blood Cnt No Di ffon 12-23-2024 Erythrocyte distribution width (RBC) [Ratio] 14.1 % Normal 11.6-14.6 [facility] Comment on above: Performed By: #### L 500.2500, L100.0500 ####[facility] [address] [place], [address] Hematocrit (Bld) [Volume fraction] 36.3 % Low 40-54 [facility] Comment on above: Performed By: #### L 500.2500, L100.0500 ####[facility] [address] [place], [address] Hemoglobin (Bld) [Mass/Vol] 11.2 g/dL Low 13.0-16.5 [facility] Comment on above: Performed By: #### L 500.2500, L100.0500 ####[facility] [address] [place], [address] MCH (RBC) [Entitic mass] 27.7 pg Normal 27.0-32.0 [facility] Comment on above: Performed By: #### L 500.2500, L100.0500 ####[facility] [address] [place], [address] MCHC (RBC) [Mass/Vol] 30.9 g/dL Low 32-36 [facility] Comment on above: Performed By: #### L 500.2500, L100.0500 ####[facility] [address] [place], [address] MCV (RBC) [Entitic vol] 89.9 fL Normal 80-94 [facility] Comment on above: Performed By: #### L 500.2500, L100.0500 ####[facility] [address] [place], [address] Platelet mean volume (Bld) [Entitic vol] 10.0 fL Normal 6.2-12.0 [facility] Comment on above: Performed By: #### L 500.2500, L100.0500 ####[facility] [address] [place], [address] Platelets (Bld) [#/Vol] 376 10*3/uL Normal 150-450 [facility] Comment on above: Performed By: #### L 500.2500, L100.0500 ####[facility] [address] [place], [address] RBC (Bld) [#/Vol] 4.04 10*6/uL Low 4.6-6.2 [facility] Comment on above: Performed By: #### L 500.2500, L100.0500 ####[facility] [address] [place], [address] RDW SD 46.0 fl High 35.1-43.9 [facility] Comment on above: Performed By: #### L 500.2500, L100.0500 ####[facility] [address] [place], [address] WBC (Bld) [#/Vol] 7.5 10*3/uL Normal 4.4-11.0 [facility] Comment on above: Performed By: #### L 500.2500, L100.0500 ####[facility] [address] [place], [address] Duplex ultrasound of carotid artery reportOrdered By: Raul Jensen on 12-23-2024 Study report [facility] Work Phone: EGD Reporton 12-23-2024 EGD Report Normal [facility] MR/POSTOP.ANEon 12-23-2024 MR/POSTOP.ANE Normal [facility] MR/QODNDKNZ8hr 12-23-2024 MR/POSTOPAN2 Normal [facility] Basic Metabolic Profile (BMP )on 12-22-2024 BUN/CRE 15.7 RATIO Normal 10-20 [facility] Comment on above: Performed By: #### L 100.0500, L500.2500 ####[facility] [address] [place], [address] Calcium [Mass/Vol] 8.8 mg/dL Normal 7.6-11.0 [facility] Comment on above: Performed By: #### L 100.0500, L500.2500 ####[facility] [address] [place], [address] Chloride [Moles/Vol] 103 mmol/L Normal 98-108 [facility] Comment on above: Performed By: #### L 100.0500, L500.2500 ####[facility] [address] [place], [address] CO2 [Moles/Vol] 24.6 mmol/L Normal 21.0-32.0 [facility] Comment on above: Performed By: #### L 100.0500, L500.2500 ####[facility] [address] [place], [address] Creatinine [Mass/Vol] 1.03 mg/dL Normal 0.70-1.20 [facility] Comment on above: Performed By: #### L 100.0500, L500.2500 ####[facility] [address] [place], [address] ECRCL 59.95 ml/min Normal 50-250 [facility] Comment on above: Performed By: #### L 100.0500, L500.2500 ####[facility] [address] [place], [address] GAP 11 Normal 5-15 [facility] Comment on above: Performed By: #### L 100.0500, L500.2500 ####[facility] [address] [place], [address] GFR/1.73 sq M.predicted among non-blacks MDRD (S/P/Bld) [Vol rate/Area] 76 mL/min/{1.73_m2} Normal >60 [facility] Comment on above: Result Comment: mL/m in/1.73m2 CKD-EPI Creatinine Equation (2020) Performed By: #### L 100.0500, L500.2500 ####[facility] [address] [place], [address] Glucose [Mass/Vol] 84 mg/dL Normal 70-99 [facility] Comment on above: Performed By: #### L 100.0500, L500.2500 ####[facility] [address] [place], [address] Potassium [Moles/Vol] 3.6 mmol/L Normal 3.3-5.1 [facility] Comment on above: Performed By: #### L 100.0500, L500.2500 ####[facility] [address] [place], [address] Sodium [Moles/Vol] 139 mmol/L Normal 133-145 [facility] Comment on above: Performed By: #### L 100.0500, L500.2500 ####[facility] [address] [place], [address] Urea nitrogen [Mass/Vol] 16 mg/dL Normal 4-19 [facility] Comment on above: Performed By: #### L 100.0500, L500.2500 ####[facility] [address] [place], [address] CBC-Complete Blood Cnt No Di ffon 12-22-2024 Erythrocyte distribution width (RBC) [Ratio] 13.8 % Normal 11.6-14.6 [facility] Comment on above: Performed By: #### L 100.0500, L500.2500 ####[facility] [address] [place], [address] Hematocrit (Bld) [Volume fraction] 37.7 % Low 40-54 [facility] Comment on above: Performed By: #### L 100.0500, L500.2500 ####[facility] [address] [place], [address] Hemoglobin (Bld) [Mass/Vol] 11.7 g/dL Low 13.0-16.5 [facility] Comment on above: Performed By: #### L 100.0500, L500.2500 ####[facility] [address] [place], [address] MCH (RBC) [Entitic mass] 27.7 pg Normal 27.0-32.0 [facility] Comment on above: Performed By: #### L 100.0500, L500.2500 ####[facility] [address] [place], [address] MCHC (RBC) [Mass/Vol] 31.0 g/dL Low 32-36 [facility] Comment on above: Performed By: #### L 100.0500, L500.2500 ####[facility] [address] [place], [address] MCV (RBC) [Entitic vol] 89.1 fL Normal 80-94 [facility] Comment on above: Performed By: #### L 100.0500, L500.2500 ####[facility] [address] [place], [address] Platelet mean volume (Bld) [Entitic vol] 10.1 fL Normal 6.2-12.0 [facility] Comment on above: Performed By: #### L 100.0500, L500.2500 ####[facility] [address] [place], [address] Platelets (Bld) [#/Vol] 392 10*3/uL Normal 150-450 [facility] Comment on above: Performed By: #### L 100.0500, L500.2500 ####[facility] [address] [place], [address] RBC (Bld) [#/Vol] 4.23 10*6/uL Low 4.6-6.2 [facility] Comment on above: Performed By: #### L 100.0500, L500.2500 ####[facility] [address] [place], [address] RDW SD 45.0 fl High 35.1-43.9 [facility] Comment on above: Performed By: #### L 100.0500, L500.2500 ####[facility] [address] [place], [address] WBC (Bld) [#/Vol] 7.5 10*3/uL Normal 4.4-11.0 [facility] Comment on above: Performed By: #### L 100.0500, L500.2500 ####[facility] [address] [place], [address] Basic Metabolic Profile (BMP )on 12-21-2024 BUN/CRE 16.2 RATIO Normal 10-20 [facility] Comment on above: Performed By: #### L 100.0100, L500.2500 ####[facility] [address] [place], [address] Calcium [Mass/Vol] 8.3 mg/dL Normal 7.6-11.0 [facility] Comment on above: Performed By: #### L 100.0100, L500.2500 ####[facility] [address] [place], [address] Chloride [Moles/Vol] 105 mmol/L Normal 98-108 [facility] Comment on above: Performed By: #### L 100.0100, L500.2500 ####[facility] [address] [place], [address] CO2 [Moles/Vol] 25.0 mmol/L Normal 21.0-32.0 [facility] Comment on above: Performed By: #### L 100.0100, L500.2500 ####[facility] [address] [place], [address] Creatinine [Mass/Vol] 0.99 mg/dL Normal 0.70-1.20 [facility] Comment on above: Performed By: #### L 100.0100, L500.2500 ####[facility] [address] [place], [address] ECRCL 62.37 ml/min Normal 50-250 [facility] Comment on above: Performed By: #### L 100.0100, L500.2500 ####[facility] [address] [place], [address] GAP 9 Normal 5-15 [facility] Comment on above: Performed By: #### L 100.0100, L500.2500 ####[facility] [address] [place], [address] GFR/1.73 sq M.predicted among non-blacks MDRD (S/P/Bld) [Vol rate/Area] 80 mL/min/{1.73_m2} Normal >60 [facility] Comment on above: Result Comment: mL/m in/1.73m2 CKD-EPI Creatinine Equation (2020) Performed By: #### L 100.0100, L500.2500 ####[facility] [address] [place], [address] Glucose [Mass/Vol] 95 mg/dL Normal 70-99 [facility] Comment on above: Performed By: #### L 100.0100, L500.2500 ####[facility] [address] [place], [address] Potassium [Moles/Vol] 3.5 mmol/L Normal 3.3-5.1 [facility] Comment on above: Performed By: #### L 100.0100, L500.2500 ####[facility] [address] [place], [address] Sodium [Moles/Vol] 139 mmol/L Normal 133-145 [facility] Comment on above: Performed By: #### L 100.0100, L500.2500 ####[facility] [address] [place], [address] Urea nitrogen [Mass/Vol] 16 mg/dL Normal 4-19 [facility] Comment on above: Performed By: #### L 100.0100, L500.2500 ####[facility] [address] [place], [address] CBC W/Diff, Automatedon 07-0 5-2025 Absolute Lymph 0.95 X10 3/uL Normal 0.83-4.51 [facility] Comment on above: Performed By: #### L 100.0100, L500.2500 ####[facility] [address] [place], [address] Absolute Neut 5.0 X10 3/uL Normal 2.0-7.7 [facility] Comment on above: Performed By: #### L 100.0100, L500.2500 ####[facility] [address] [place], [address] Basophils/100 WBC (Bld) 0.6 % Normal 0-1 [facility] Comment on above: Performed By: #### L 100.0100, L500.2500 ####[facility] [address] [place], [address] Eosinophils/100 WBC (Bld) 1.2 % Normal 0-5 [facility] Comment on above: Performed By: #### L 100.0100, L500.2500 ####[facility] [address] [place], [address] Erythrocyte distribution width (RBC) [Ratio] 13.7 % Normal 11.6-14.6 [facility] Comment on above: Performed By: #### L 100.0100, L500.2500 ####[facility] [address] [place], [address] Hematocrit (Bld) [Volume fraction] 33.8 % Low 40-54 [facility] Comment on above: Performed By: #### L 100.0100, L500.2500 ####[facility] [address] [place], [address] Hemoglobin (Bld) [Mass/Vol] 10.4 g/dL Low 13.0-16.5 [facility] Comment on above: Performed By: #### L 100.0100, L500.2500 ####[facility] [address] [place], [address] IG% 0.400 Normal 0.0-0.9 [facility] Comment on above: Result Comment: IG% - Immature Granulocytes (promyelocytes, myelocytes andmetamyelocytes) > 1% indicates that a LEFT SHIFT is Present. Performed By: #### L 100.0100, L500.2500 ####[facility] [address] [place], [address] Lymphocytes/100 WBC (Bld) 14.2 % Low 19-41 [facility] Comment on above: Performed By: #### L 100.0100, L500.2500 ####[facility] [address] [place], [address] MCH (RBC) [Entitic mass] 27.6 pg Normal 27.0-32.0 [facility] Comment on above: Performed By: #### L 100.0100, L500.2500 ####[facility] [address] [place], [address] MCHC (RBC) [Mass/Vol] 30.8 g/dL Low 32-36 [facility] Comment on above: Performed By: #### L 100.0100, L500.2500 ####[facility] [address] [place], [address] MCV (RBC) [Entitic vol] 89.7 fL Normal 80-94 [facility] Comment on above: Performed By: #### L 100.0100, L500.2500 ####[facility] [address] [place], [address] Monocytes/100 WBC (Bld) 8.5 % Normal 0-10 [facility] Comment on above: Performed By: #### L 100.0100, L500.2500 ####[facility] [address] [place], [address] Neutrophils/100 WBC (Bld) 75.1 % High 47-70 [facility] Comment on above: Performed By: #### L 100.0100, L500.2500 ####[facility] [address] [place], [address] Nucleated RBC (Bld) [#/Vol] 0 10*3/uL Normal 0-5 [facility] Comment on above: Performed By: #### L 100.0100, L500.2500 ####[facility] [address] [place], [address] Platelet mean volume (Bld) [Entitic vol] 9.7 fL Normal 6.2-12.0 [facility] Comment on above: Performed By: #### L 100.0100, L500.2500 ####[facility] [address] [place], [address] Platelets (Bld) [#/Vol] 326 10*3/uL Normal 150-450 [facility] Comment on above: Performed By: #### L 100.0100, L500.2500 ####[facility] [address] [place], [address] RBC (Bld) [#/Vol] 3.77 10*6/uL Low 4.6-6.2 [facility] Comment on above: Performed By: #### L 100.0100, L500.2500 ####[facility] [address] [place], [address] RDW SD 44.7 fl High 35.1-43.9 [facility] Comment on above: Performed By: #### L 100.0100, L500.2500 ####[facility] [address] [place], [address] WBC (Bld) [#/Vol] 6.7 10*3/uL Normal 4.4-11.0 [facility] Comment on above: Performed By: #### L 100.0100, L500.2500 ####[facility] [address] [place], [address] CBC W/Diff, Automatedon 07-0 4-2025 Absolute Lymph 0.69 X10 3/uL Low 0.83-4.51 [facility] Comment on above: Performed By: #### L 100.0100 ####[facility] [address] [place], [address] Absolute Neut 5.5 X10 3/uL Normal 2.0-7.7 [facility] Comment on above: Performed By: #### L 100.0100 ####[facility] [address] [place], [address] Basophils/100 WBC (Bld) 0.9 % Normal 0-1 [facility] Comment on above: Performed By: #### L 100.0100 ####[facility] [address] [place], [address] Eosinophils/100 WBC (Bld) 1.2 % Normal 0-5 [facility] Comment on above: Performed By: #### L 100.0100 ####[facility] [address], [address] Erythrocyte distribution width (RBC) [Ratio] 13.7 % Normal 11.6-14.6 [facility] Comment on above: Performed By: #### L 100.0100 ####[facility] [address], [address] Hematocrit (Bld) [Volume fraction] 35.7 % Low 40-54 [facility] Comment on above: Performed By: #### L 100.0100 ####[facility] [address] [place], [address] Hemoglobin (Bld) [Mass/Vol] 10.9 g/dL Low 13.0-16.5 [facility] Comment on above: Performed By: #### L 100.0100 ####[facility] [address] [place], [address] IG% 0.400 Normal 0.0-0.9 [facility] Comment on above: Result Comment: IG% - Immature Granulocytes (promyelocytes, myelocytes andmetamyelocytes) > 1% indicates that a LEFT SHIFT is Present. Performed By: #### L 100.0100 ####[facility] [address] [place], [address] Lymphocytes/100 WBC (Bld) 9.9 % Low 19-41 [facility] Comment on above: Performed By: #### L 100.0100 ####[facility] [address] [place], [address] MCH (RBC) [Entitic mass] 27.3 pg Normal 27.0-32.0 [facility] Comment on above: Performed By: #### L 100.0100 ####[facility] [address] [place], [address] MCHC (RBC) [Mass/Vol] 30.5 g/dL Low 32-36 [facility] Comment on above: Performed By: #### L 100.0100 ####[facility] [address] [place], [address] MCV (RBC) [Entitic vol] 89.5 fL Normal 80-94 [facility] Comment on above: Performed By: #### L 100.0100 ####[facility] [address] [place], [address] Monocytes/100 WBC (Bld) 8.5 % Normal 0-10 [facility] Comment on above: Performed By: #### L 100.0100 ####[facility] [address] [place], [address] Neutrophils/100 WBC (Bld) 79.1 % High 47-70 [facility] Comment on above: Performed By: #### L 100.0100 ####[facility] [address] [place], [address] Nucleated RBC (Bld) [#/Vol] 0 10*3/uL Normal 0-5 [facility] Comment on above: Performed By: #### L 100.0100 ####[facility] [address] [place], [address] Platelet mean volume (Bld) [Entitic vol] 10.0 fL Normal 6.2-12.0 [facility] Comment on above: Performed By: #### L 100.0100 ####[facility] [address] [place], [address] Platelets (Bld) [#/Vol] 355 10*3/uL Normal 150-450 [facility] Comment on above: Performed By: #### L 100.0100 ####[facility] [address] [place], [address] RBC (Bld) [#/Vol] 3.99 10*6/uL Low 4.6-6.2 [facility] Comment on above: Performed By: #### L 100.0100 ####[facility] [address] [place], [address] RDW SD 44.4 fl High 35.1-43.9 [facility] Comment on above: Performed By: #### L 100.0100 ####[facility] [address] [place], [address] WBC (Bld) [#/Vol] 6.9 10*3/uL Normal 4.4-11.0 [facility] Comment on above: Performed By: #### L 100.0100 ####[facility] [address] [place], [address] Carotid Duplex Ultrasoundon 12-20-2024 Carotid Duplex Ultrasound Normal [facility] Vitamin B12on 12-20-2024 Cobalamin (Vitamin B12) [Mass/Vol] 774 pg/mL Normal 180-914 [facility] Comment on above: Performed By: #### L 503.0106 ####[facility] [address] [place], [address] Vitamin B12 ser/plasOrdered By: Lisha Talamantes on 12-20-2024 Cobalamin (Vitamin B12) [Mass/Vol] 774 pg/mL 180-914 [facility] CBC W/Diff, Automatedon 07- Absolute Lymph 0.67 X10 3/uL Low 0.83-4.51 [facility] Comment on above: Performed By: #### L 100.0100, L500.4050 ####[facility] [id number] [place], [address] Absolute Neut 6.0 X10 3/uL Normal 2.0-7.7 [facility] Comment on above: Performed By: #### L 100.0100, L500.4050 ####[facility] [address] [place], [address] Basophils/100 WBC (Bld) 0.8 % Normal 0-1 [facility] Comment on above: Performed By: #### L 100.0100, L500.4050 ####[facility] [address] [place], [address] Eosinophils/100 WBC (Bld) 1.9 % Normal 0-5 [facility] Comment on above: Performed By: #### L 100.0100, L500.4050 ####[facility] [id number] [place], [address] Erythrocyte distribution width (RBC) [Ratio] 13.6 % Normal 11.6-14.6 [facility] Comment on above: Performed By: #### L 100.0100, L500.4050 ####[facility] [id number] [place], [address] Hematocrit (Bld) [Volume fraction] 39.1 % Low 40-54 [facility] Comment on above: Performed By: #### L 100.0100, L500.4050 ####[facility] [id number] [place], [address] Hemoglobin (Bld) [Mass/Vol] 11.9 g/dL Low 13.0-16.5 [facility] Comment on above: Performed By: #### L 100.0100, L500.4050 ####[facility] [id number] [place], [place], [address] IG% 0.400 Normal 0.0-0.9 [facility] Comment on above: Result Comment: IG% - Immature Granulocytes (promyelocytes, myelocytes andmetamyelocytes) > 1% indicates that a LEFT SHIFT is Present. Performed By: #### L 100.0100, L500.4050 ####[facility] [address] [place], [address] Lymphocytes/100 WBC (Bld) 9.0 % Low 19-41 [facility] Comment on above: Performed By: #### L 100.0100, L500.4050 ####[facility] [address] [place], [address] MCH (RBC) [Entitic mass] 27.5 pg Normal 27.0-32.0 [facility] Comment on above: Performed By: #### L 100.0100, L500.4050 ####[facility] [address] [place], [address] MCHC (RBC) [Mass/Vol] 30.4 g/dL Low 32-36 [facility] Comment on above: Performed By: #### L 100.0100, L500.4050 ####[facility] [address] [place], [address] MCV (RBC) [Entitic vol] 90.5 fL Normal 80-94 [facility] Comment on above: Performed By: #### L 100.0100, L500.4050 ####[facility] [address] [place], [address] Monocytes/100 WBC (Bld) 6.6 % Normal 0-10 [facility] Comment on above: Performed By: #### L 100.0100, L500.4050 ####[facility] [address] [place], [address] Neutrophils/100 WBC (Bld) 81.3 % High 47-70 [facility] Comment on above: Performed By: #### L 100.0100, L500.4050 ####[facility] [address] [place], [address] Nucleated RBC (Bld) [#/Vol] 0 10*3/uL Normal 0-5 [facility] Comment on above: Performed By: #### L 100.0100, L500.4050 ####[facility] [address] [place], [address] Platelet mean volume (Bld) [Entitic vol] 9.6 fL Normal 6.2-12.0 [facility] Comment on above: Performed By: #### L 100.0100, L500.4050 ####[facility] [address] [place], [address] Platelets (Bld) [#/Vol] 375 10*3/uL Normal 150-450 [facility] Comment on above: Performed By: #### L 100.0100, L500.4050 ####[facility] [address] [place], [address] RBC (Bld) [#/Vol] 4.32 10*6/uL Low 4.6-6.2 [facility] Comment on above: Performed By: #### L 100.0100, L500.4050 ####[facility] [address] [place], [address] RDW SD 44.8 fl High 35.1-43.9 [facility] Comment on above: Performed By: #### L 100.0100, L500.4050 ####[facility] [address] [place], [address] WBC (Bld) [#/Vol] 7.4 10*3/uL Normal 4.4-11.0 [facility] Comment on above: Performed By: #### L 100.0100, L500.4050 ####[facility] [address] [place], [address] CDIFF (PCR)on 12-19-2024 CDIFF Normal [facility] Comment on above: Performed By: #### M 100.6796 ####[facility] [address] [place], [address] Comprehensive Metabolic Prof ilon 12-19-2024 Albumin [Mass/Vol] 4.3 g/dL Normal 3.4-4.8 [facility] Comment on above: Performed By: #### L 100.0100, L500.4050 ####[facility] [address] [place], [address] Albumin/Globulin [Mass ratio] 1.5 {ratio} Normal 0.9-2.4 [facility] Comment on above: Performed By: #### L 100.0100, L500.4050 ####[facility] [address] [place], [address] ALK PHOS 69 U/L Normal 40-129 [facility] Comment on above: Performed By: #### L 100.0100, L500.4050 ####[facility] [address] [place], [address] ALT [Catalytic activity/Vol] 25 U/L Normal <=46 [facility] Comment on above: Performed By: #### L 100.0100, L500.4050 ####[facility] [address] [place], [address] AST [Catalytic activity/Vol] 23 U/L Normal <=37 [facility] Comment on above: Performed By: #### L 100.0100, L500.4050 ####[facility] [address] [place], [address] Bilirubin [Mass/Vol] 0.24 mg/dL Normal 0.00-1.30 [facility] Comment on above: Performed By: #### L 100.0100, L500.4050 ####[facility] [address] [place], [address] BUN/CRE 17.6 RATIO Normal 10-20 [facility] Comment on above: Performed By: #### L 100.0100, L500.4050 ####[facility] [address] [place], [address] Calcium [Mass/Vol] 9.5 mg/dL Normal 7.6-11.0 [facility] Comment on above: Performed By: #### L 100.0100, L500.4050 ####[facility] [address] [place], [address] Chloride [Moles/Vol] 101 mmol/L Normal 98-108 [facility] Comment on above: Performed By: #### L 100.0100, L500.4050 ####[facility] [address] [place], [address] CO2 [Moles/Vol] 27.6 mmol/L Normal 21.0-32.0 [facility] Comment on above: Performed By: #### L 100.0100, L500.4050 ####[facility] [address] [place], [address] Creatinine [Mass/Vol] 1.06 mg/dL Normal 0.70-1.20 [facility] Comment on above: Performed By: #### L 100.0100, L500.4050 ####[facility] [address] [place], [address] ECRCL 58.25 ml/min Normal 50-250 [facility] Comment on above: Performed By: #### L 100.0100, L500.4050 ####[facility] [address] [place], [address] GAP 12 Normal 5-15 [facility] Comment on above: Performed By: #### L 100.0100, L500.4050 ####[facility] [address] [place], [address] GFR/1.73 sq M.predicted among non-blacks MDRD (S/P/Bld) [Vol rate/Area] 73 mL/min/{1.73_m2} Normal >60 [facility] Comment on above: Result Comment: mL/m in/1.73m2 CKD-EPI Creatinine Equation (2020) Performed By: #### L 100.0100, L500.4050 ####[facility] [address] [place], [address] Globulin (S) [Mass/Vol] 2.8 g/dL Normal 2.2-4.2 [facility] Comment on above: Performed By: #### L 100.0100, L500.4050 ####[facility] [address] [place], [address] Glucose [Mass/Vol] 109 mg/dL High 70-99 [facility] Comment on above: Performed By: #### L 100.0100, L500.4050 ####[facility] [address] [place], [address] Potassium [Moles/Vol] 3.6 mmol/L Normal 3.3-5.1 [facility] Comment on above: Performed By: #### L 100.0100, L500.4050 ####[facility] [address] [place], [address] Sodium [Moles/Vol] 141 mmol/L Normal 133-145 [facility] Comment on above: Performed By: #### L 100.0100, L500.4050 ####[facility] [address] [place], [address] T PROT 7.1 g/dL Normal 5.9-8.4 [facility] Comment on above: Performed By: #### L 100.0100, L500.4050 ####[facility] [address] [place], [address] Urea nitrogen [Mass/Vol] 19 mg/dL Normal 4-19 [facility] Comment on above: Performed By: #### L 100.0100, L500.4050 ####[facility] [address] [place], [address] ENTERIC PATHOGEN PANEL STOOL on 12-19-2024 EP PANEL Normal [facility] Comment on above: Performed By: #### M 100.637 ####[facility] [address] [place], [address] Magnetic resonance imaging r eportOrdered By: Dorian Parker on 12-19-2024 Study report [facility] Basic Metabolic Profile (BMP )on 12-18-2024 BUN/CRE 20.6 RATIO High 10-20 [facility] Comment on above: Performed By: #### L 500.2500, L100.0500 ####[facility] [address] [place], [address] Calcium [Mass/Vol] 9.7 mg/dL Normal 7.6-11.0 [facility] Comment on above: Performed By: #### L 500.2500, L100.0500 ####[facility] [address] [place], [address] Chloride [Moles/Vol] 103 mmol/L Normal 98-108 [facility] Comment on above: Performed By: #### L 500.2500, L100.0500 ####[facility] [address] [place], [address] CO2 [Moles/Vol] 26.5 mmol/L Normal 21.0-32.0 [facility] Comment on above: Performed By: #### L 500.2500, L100.0500 ####[facility] [address] [place], [address] Creatinine [Mass/Vol] 1.06 mg/dL Normal 0.70-1.20 [facility] Comment on above: Performed By: #### L 500.2500, L100.0500 ####[facility] [address] [place], [address] ECRCL 58.25 ml/min Normal 50-250 [facility] Comment on above: Performed By: #### L 500.2500, L100.0500 ####[facility] [address] [place], [address] GAP 12 Normal 5-15 [facility] Comment on above: Performed By: #### L 500.2500, L100.0500 ####[facility] [address] [place], [address] GFR/1.73 sq M.predicted among non-blacks MDRD (S/P/Bld) [Vol rate/Area] 73 mL/min/{1.73_m2} Normal >60 [facility] Comment on above: Result Comment: mL/m in/1.73m2 CKD-EPI Creatinine Equation (2020) Performed By: #### L 500.2500, L100.0500 ####[facility] [address] [place], [address] Glucose [Mass/Vol] 95 mg/dL Normal 70-99 [facility] Comment on above: Performed By: #### L 500.2500, L100.0500 ####[facility] [address] [place], [address] Potassium [Moles/Vol] 4.2 mmol/L Normal 3.3-5.1 [facility] Comment on above: Result Comment: Hemo lysis present, Results??could be affected.?? Performed By: #### L 500.2500, L100.0500 ####[facility] [address] [place], [address] Sodium [Moles/Vol] 141 mmol/L Normal 133-145 [facility] Comment on above: Performed By: #### L 500.2500, L100.0500 ####[facility] [address] [place], [address] Urea nitrogen [Mass/Vol] 22 mg/dL High 4-19 [facility] Comment on above: Performed By: #### L 500.2500, L100.0500 ####[facility] [address] [place], [address] Brain without Contraston Brain without Contrast Normal [facility] CBC-Complete Blood Cnt No Di ffon 12-18-2024 Erythrocyte distribution width (RBC) [Ratio] 13.7 % Normal 11.6-14.6 [facility] Comment on above: Performed By: #### L 500.2500, L100.0500 ####[facility] [address], [address] Hematocrit (Bld) [Volume fraction] 41.9 % Normal 40-54 [facility] Comment on above: Performed By: #### L 500.2500, L100.0500 ####[facility] [address] [place], [address] Hemoglobin (Bld) [Mass/Vol] 12.8 g/dL Low 13.0-16.5 [facility] Comment on above: Performed By: #### L 500.2500, L100.0500 ####[facility] [address] [place], [address] MCH (RBC) [Entitic mass] 27.7 pg Normal 27.0-32.0 [facility] Comment on above: Performed By: #### L 500.2500, L100.0500 ####[facility] [address] [place], [address] MCHC (RBC) [Mass/Vol] 30.5 g/dL Low 32-36 [facility] Comment on above: Performed By: #### L 500.2500, L100.0500 ####[facility] [address] [place], [address] MCV (RBC) [Entitic vol] 90.7 fL Normal 80-94 [facility] Comment on above: Performed By: #### L 500.2500, L100.0500 ####[facility] [address] [place], [address] Platelet mean volume (Bld) [Entitic vol] 9.9 fL Normal 6.2-12.0 [facility] Comment on above: Performed By: #### L 500.2500, L100.0500 ####[facility] [address] [place], [address] Platelets (Bld) [#/Vol] 386 10*3/uL Normal 150-450 [facility] Comment on above: Performed By: #### L 500.2500, L100.0500 ####[facility] [address] [place], [address] RBC (Bld) [#/Vol] 4.62 10*6/uL Normal 4.6-6.2 [facility] Comment on above: Performed By: #### L 500.2500, L100.0500 ####[facility] [address] [place], [address] RDW SD 45.7 fl High 35.1-43.9 [facility] Comment on above: Performed By: #### L 500.2500, L100.0500 ####[facility] [address] [place], [address] WBC (Bld) [#/Vol] 10.4 10*3/uL Normal 4.4-11.0 [facility] Comment on above: Performed By: #### L 500.2500, L100.0500 ####[facility] [address] [place], [address] Clostridium difficile detect ion by polymerase chain reactionOrdered By: Lisha Talamantes on 12-18-2024 C. difficile DNA ALEENA+probe Ql (Unsp spec) [facility] Echo, Limited Studyon 2024 Echo, Limited Study Normal [facility] Electrocardiogram reportOrde red By: Brendan Vallejo on 12-18-2024 EKG study [facility] Other Phone: [phone] Limited echocardiogram repor tOrdered By: Milton Guajardo on 12-18-2024 Study report [facility] Work Phone: MR/CON.PCM.NEon 12-18-2024 MR/CON.PCM.NE Normal [facility] 12 Lead EKGon 12-17-2024 12 Lead EKG Normal [facility] Absolute lymphocyte countOrd ered By: Seth Pritchard on 12-17-2024 Lymphocytes Auto (Unsp spec) [#/Vol] 1.03 10*3/uL 0.83-4.51 [facility] Activated partial thrombopla stin time (aPTT) in platelet poor plasma by coagulation aOrdered By: Seth Pritchard on 12-17-2024 aPTT Coag (PPP) [Time] 24.2 s 24.1-36.2 [facility] Anion gap in Serum or Plasma Ordered By: Seth Pritchard on 12-17-2024 Anion gap [Moles/Vol] 13 mmol/L 5-15 [facility] Automated blood erythrocyte countOrdered By: Seth Pritchard on 12-17-2024 RBC (Bld) [#/Vol] 4.45 10*6/uL Low 4.6-6.2 [facility] Comment on above: Performed By: #### L 501.4021, L300.4310, L100.0100, L500.2500, L300.3900 ####[facility] [address] [place], [place], [address] Automated blood hematocrit ( percentage)Ordered By: Seth Pritchard on 12-17-2024 Hematocrit (Bld) [Volume fraction] 39.6 % Low 40-54 [facility] Comment on above: Performed By: #### L 501.4021, L300.4310, L100.0100, L500.2500, L300.3900 ####[facility] [address] [place], [place], [id number] Automated lymphocyte count a s percentage of total leukocytesOrdered By: Seth Pritchard on 12-17-2024 Lymphocytes/100 WBC Auto (Unsp spec) 12.1 % Low 19-41 [facility] BUN/creatinine ratioOrdered By: Seth Pritchard on 12-17-2024 Urea nitrogen/Creatinine [Mass ratio] 26.4 mg/mg High 10-20 [facility] Basic Metabolic Profile (BMP )on 12-17-2024 BUN/CRE 26.4 RATIO High 10-20 [facility] Comment on above: Performed By: #### L 501.4021, L300.4310, L100.0100, L500.2500, L300.3900 ####[facility] [address] [place], [address] ECRCL 52.33 ml/min Normal 50-250 [facility] Comment on above: Performed By: #### L 501.4021, L300.4310, L100.0100, L500.2500, L300.3900 ####[facility] [address] [place], [address] GAP 13 Normal 5-15 [facility] Comment on above: Performed By: #### L 501.4021, L300.4310, L100.0100, L500.2500, L300.3900 ####[facility] [address] [place], [address] Potassium [Moles/Vol] 3.6 mmol/L Normal 3.3-5.1 [facility] Comment on above: Performed By: #### L 501.4021, L300.4310, L100.0100, L500.2500, L300.3900 ####[facility] [address] [place], [address] Basophil percentageOrdered B y: Seth Francheska on 12-17-2024 Basophils/100 WBC (Bld) 1.1 % High 0-1 [facility] Comment on above: Performed By: #### L 501.4021, L300.4310, L100.0100, L500.2500, L300.3900 ####[facility] [address] [place], [address] CBC W/Diff, Automatedon 07-0 Absolute Lymph 1.03 X10 3/uL Normal 0.83-4.51 [facility] Comment on above: Performed By: #### L 501.4021, L300.4310, L100.0100, L500.2500, L300.3900 ####[facility] [address] [place], [address] Absolute Neut 6.6 X10 3/uL Normal 2.0-7.7 [facility] Comment on above: Performed By: #### L 501.4021, L300.4310, L100.0100, L500.2500, L300.3900 ####[facility] [address] [place], [address] IG% 0.400 Normal 0.0-0.9 [facility] Comment on above: Result Comment: IG% - Immature Granulocytes (promyelocytes, myelocytes andmetamyelocytes) > 1% indicates that a LEFT SHIFT is Present. Performed By: #### L 501.4021, L300.4310, L100.0100, L500.2500, L300.3900 ####[facility] [address] [place], [address] Lymphocytes/100 WBC (Bld) 12.1 % Low 19-41 [facility] Comment on above: Performed By: #### L 501.4021, L300.4310, L100.0100, L500.2500, L300.3900 ####[facility] [address] [place], [address] MCHC (RBC) [Mass/Vol] 31.3 g/dL Low 32-36 [facility] Comment on above: Performed By: #### L 501.4021, L300.4310, L100.0100, L500.2500, L300.3900 ####[facility] [address] [place], [address] Nucleated RBC (Bld) [#/Vol] 0 10*3/uL Normal 0-5 [facility] Comment on above: Performed By: #### L 501.4021, L300.4310, L100.0100, L500.2500, L300.3900 ####[facility] [address] [place], [address] Platelet mean volume (Bld) [Entitic vol] 10.0 fL Normal 6.2-12.0 [facility] Comment on above: Performed By: #### L 501.4021, L300.4310, L100.0100, L500.2500, L300.3900 ####[facility] [address] [place], [address] RDW SD 45.6 fl High 35.1-43.9 [facility] Comment on above: Performed By: #### L 501.4021, L300.4310, L100.0100, L500.2500, L300.3900 ####[facility] [address] [place], [address] Carbon dioxide, total [Moles /volume] in Central venous bloodOrdered By: Seth Pritchard on 12-17-2024 CO2 [Moles/Vol] 25.5 mmol/L Normal 21.0-32.0 [facility] Comment on above: Performed By: #### L 501.4021, L300.4310, L100.0100, L500.2500, L300.3900 ####[facility] [address] [place], [address] Chest PA and Lateralon 12-17 Chest PA and Lateral Normal [facility] Chloride assayOrdered By: Bill Pritchard on 12-17-2024 Chloride [Moles/Vol] 104 mmol/L Normal 98-108 [facility] Comment on above: Performed By: #### L 501.4021, L300.4310, L100.0100, L500.2500, L300.3900 ####[facility] [address] [place], [address] Emergency Department Summary on 12-17-2024 Emergency Department Summary Normal [facility] Eosinophil percentageOrdered By: Seth Pritchard on 12-17-2024 Eosinophils/100 WBC (Bld) 1.1 % Normal 0-5 [facility] Comment on above: Performed By: #### L 501.4021, L300.4310, L100.0100, L500.2500, L300.3900 ####[facility] [address] [place], [address] Erythrocyte distribution wid th ratioOrdered By: Seth Pritchard on 12-17-2024 Erythrocyte distribution width (RBC) [Ratio] 14.0 % Normal 11.6-14.6 [facility] Comment on above: Performed By: #### L 501.4021, L300.4310, L100.0100, L500.2500, L300.3900 ####[facility] [address] [place], [address] Erythrocyte distribution wid th standard deviationOrdered By: Seth Pritchard on 12-17-2024 Erythrocyte distribution width (RBC) [Ratio] 45.6 fl High 35.1-43.9 [facility] Glomerular filtration rate ( GFR) estimation/1.73 sq m using serum, plasma, or whole bOrdered By: Seth Pritchard on 12-17-2024 GFR/1.73 sq M.predicted among non-blacks MDRD (S/P/Bld) [Vol rate/Area] 64 mL/min/{1.73_m2} Normal >60 [facility] Comment on above: Result Comment: mL/m in/1.73m2 CKD-EPI Creatinine Equation (2020) Performed By: #### L 501.4021, L300.4310, L100.0100, L500.2500, L300.3900 ####[facility] [address] [place], [address] H AND P Exam - Hospitaliston 12-17-2024 H&P Exam - Hospitalist Normal [facility] Hemoglobin A1c percentageOrd ered By: Roman Patel on 12-17-2024 HbA1c (Bld) [Mass fraction] 5.9 % High <5.7 [facility] Comment on above: Result Comment: Norm al < 5.7 % Prediabetic 5.7 - 6.4 % Diabetic >or= 6.5 % Please note range changes. Performed By: #### L 501.9520, L501.9985 ####[facility] [address] [place], [address] Hemoglobin measurementOrdere d By: Seth Pritchard on 12-17-2024 Hemoglobin (Bld) [Mass/Vol] 12.4 g/dL Low 13.0-16.5 [facility] Comment on above: Performed By: #### L 501.4021, L300.4310, L100.0100, L500.2500, L300.3900 ####[facility] [address] [place], [address] Immature granulocytes/100 WB C Auto (Bld)Ordered By: Seth Pritchard on 12-17-2024 Immature granulocytes/100 WBC (Bld) 0.400 % 0.0-0.9 [facility] L499.0042on 12-17-2024 Trop T High Sen 23 ng/L High <=22 [facility] Comment on above: Performed By: #### L 499.0042 ####[facility] [address] [place], [address] L499.0043on 12-17-2024 Trop T High Sen 23 ng/L High <=22 [facility] Comment on above: Performed By: #### L 499.0043 ####[facility] [address] [place], [address] L501.4021on 12-17-2024 Trop T High Sen 27 ng/L High <=22 [facility] Comment on above: Performed By: #### L 501.4021, L300.4310, L100.0100, L500.2500, L300.3900 ####[facility] [address] [place], [address] MCV (mean corpuscular volume ) determinationOrdered By: Seth Pritchard on 12-17-2024 MCV (RBC) [Entitic vol] 89.0 fL Normal 80-94 [facility] Comment on above: Performed By: #### L 501.4021, L300.4310, L100.0100, L500.2500, L300.3900 ####[facility] [address] [place], [place], [id number] Mean corpuscular hemoglobin (MCH) determinationOrdered By: Seth Pritchard on 12-17-2024 MCH (RBC) [Entitic mass] 27.9 pg Normal 27.0-32.0 [facility] Comment on above: Performed By: #### L 501.4021, L300.4310, L100.0100, L500.2500, L300.3900 ####[facility] [address] [place], [place], [id number] Monocyte percentageOrdered B y: Seth Pritchard on 12-17-2024 Monocytes/100 WBC (Bld) 7.8 % Normal 0-10 [facility] Comment on above: Performed By: #### L 501.4021, L300.4310, L100.0100, L500.2500, L300.3900 ####[facility] [address] [place], [place], [id number] Neutrophil percentageOrdered By: Seth Pritchard on 12-17-2024 Neutrophils/100 WBC (Bld) 77.5 % High 47-70 [facility] Comment on above: Performed By: #### L 501.4021, L300.4310, L100.0100, L500.2500, L300.3900 ####[facility] [address] [place], [place], [phone] Partial Thromboplast Timeon 12-17-2024 aPTT Coag (Bld) [Time] 24.2 s Normal 24.1-36.2 [facility] Comment on above: Performed By: #### L 501.4021, L300.4310, L100.0100, L500.2500, L300.3900 ####[facility] [id number] [place], [id number] Platelet countOrdered By: Bill Pritchard on 12-17-2024 Platelets (Bld) [#/Vol] 417 10*3/uL Normal 150-450 [facility] Comment on above: Performed By: #### L 501.4021, L300.4310, L100.0100, L500.2500, L300.3900 ####[facility] [address] [place], [address] Potassium measurement (mass/ volume)Ordered By: Seth Pritchard on 12-17-2024 Potassium (Unsp spec) [Mass/Vol] 3.6 mmol/L 3.3-5.1 [facility] Prothrombin Time w/INRon INR Coag (PPP) [Relative time] 0.9 {INR} Normal [facility] Comment on above: Performed By: #### L 501.4021, L300.4310, L100.0100, L500.2500, L300.3900 ####[facility] [id number] [place], [address] Prothrombin timeOrdered By: Seth Pritchard on 12-17-2024 PT Coag (PPP) [Time] 12.8 s 11.7-14.9 [facility] Comment on above: Performed By: #### L 501.4021, L300.4310, L100.0100, L500.2500, L300.3900 ####[facility] [address] [place], [address] [place]KE Brain/Head without Co nton 12-17-2024 STROKE Brain/Head without Cont Normal [facility] STROKE CTA Head AND Neck W/C onon 12-17-2024 STROKE CTA Head AND Neck W/Con Normal [facility] Serum creatinine measurement (mass/volume)Ordered By: Seth Pritchard on 12-17-2024 Creatinine [Mass/Vol] 1.18 mg/dL Normal 0.70-1.20 [facility] Comment on above: Performed By: #### L 501.4021, L300.4310, L100.0100, L500.2500, L300.3900 ####[facility] [address] [place], [address] Serum glucose measurement (m ass/volume)Ordered By: Seth Pritchard on 12-17-2024 Glucose [Mass/Vol] 137 mg/dL High 70-99 [facility] Comment on above: Performed By: #### L 501.4021, L300.4310, L100.0100, L500.2500, L300.3900 ####[facility] [address] [place], [address] Serum or plasma calcium luis urement (mass/volume)Ordered By: Seth Pritchard on 12-17-2024 Calcium [Mass/Vol] 9.9 mg/dL Normal 7.6-11.0 [facility] Comment on above: Performed By: #### L 501.4021, L300.4310, L100.0100, L500.2500, L300.3900 ####[facility] [address] [place], [address] Serum or plasma urea nitroge n measurement (mass/volume)Ordered By: Seth Pritchard on 12-17-2024 Urea nitrogen [Mass/Vol] 31 mg/dL High 4-19 [facility] Comment on above: Performed By: #### L 501.4021, L300.4310, L100.0100, L500.2500, L300.3900 ####[facility] [address] [place], [address] Sodium levelOrdered By: Huang Pritchard on 12-17-2024 Sodium [Moles/Vol] 142 mmol/L Normal 133-145 [facility] Comment on above: Performed By: #### L 501.4021, L300.4310, L100.0100, L500.2500, L300.3900 ####[facility] [address] [place], [address] TSH DL <= 0.005 mIU/L QnOrde red By: Roman Patel on 12-17-2024 TSH Qn 3.380 uIU/mL 0.300-4.200 [facility] Thyroid Stim Hormone (TSH)on 12-17-2024 TSH 3.380 uIU/mL Normal 0.300-4.200 [facility] Comment on above: Performed By: #### L 501.9520, L501.9946 ####[facility] [address] [place], [address] Troponin T.cardiac [Mass/vol ume] in Serum or Plasma by High sensitivity methodOrdered By: Seth Pritchard on 12-17-2024 Troponin T.cardiac High sensitivity method [Mass/Vol] 23 ng/L High <22 [facility] Troponin T.cardiac High sensitivity method [Mass/Vol] 23 ng/L High <22 [facility] Troponin T.cardiac High sensitivity method [Mass/Vol] 27 ng/L High <22 [facility] White blood cell (WBC) count Ordered By: Seth Pritchard on 12-17-2024 WBC (Bld) [#/Vol] 8.5 10*3/uL Normal 4.4-11.0 [facility] Comment on above: Performed By: #### L 501.4021, L300.4310, L100.0100, L500.2500, L300.3900 ####[facility] [address] [place], [address] Anion gap in Serum or Plasma Ordered By: Lisha Talamantes on 12-16-2024 Anion gap [Moles/Vol] 12 mmol/L 5-15 [facility] BUN/creatinine ratioOrdered By: Lisha Talamantes on 12-16-2024 Urea nitrogen/Creatinine [Mass ratio] 24.5 mg/mg High 10-20 [facility] Basic Metabolic Profile (BMP )on 12-16-2024 BUN/CRE 24.5 RATIO High 10-20 [facility] Comment on above: Performed By: #### L 500.2500 ####[facility] [address] [place], [address] Calcium [Mass/Vol] 9.4 mg/dL Normal 7.6-11.0 [facility] Comment on above: Performed By: #### L 500.2500 ####[facility] [address] [place], [address] Chloride [Moles/Vol] 102 mmol/L Normal 98-108 [facility] Comment on above: Performed By: #### L 500.2500 ####[facility] [address] [place], [address] CO2 [Moles/Vol] 25.5 mmol/L Normal 21.0-32.0 [facility] Comment on above: Performed By: #### L 500.2500 ####[facility] [address] [place], [address] Creatinine [Mass/Vol] 1.17 mg/dL Normal 0.70-1.20 [facility] Comment on above: Performed By: #### L 500.2500 ####[facility] [address] [place], [address] ECRCL 52.78 ml/min Normal 50-250 [facility] Comment on above: Performed By: #### L 500.2500 ####[facility] [address] [place], [address] GAP 12 Normal 5-15 [facility] Comment on above: Performed By: #### L 500.2500 ####[facility] [address] [place], [address] GFR/1.73 sq M.predicted among non-blacks MDRD (S/P/Bld) [Vol rate/Area] 65 mL/min/{1.73_m2} Normal >60 [facility] Comment on above: Result Comment: mL/m in/1.73m2 CKD-EPI Creatinine Equation (2020) Performed By: #### L 500.2500 ####[facility] [address] [place], [address] Glucose [Mass/Vol] 108 mg/dL High 70-99 [facility] Comment on above: Performed By: #### L 500.2500 ####[facility] [address] [place], [address] Potassium [Moles/Vol] 3.6 mmol/L Normal 3.3-5.1 [facility] Comment on above: Performed By: #### L 500.2500 ####[facility] [address] [place], [address] Sodium [Moles/Vol] 140 mmol/L Normal 133-145 [facility] Comment on above: Performed By: #### L 500.2500 ####[facility] [address] [place], [address] Urea nitrogen [Mass/Vol] 29 mg/dL High 4-19 [facility] Comment on above: Performed By: #### L 500.2500 ####[facility] [address] [place], [address] Carbon dioxide, total [Moles /volume] in Central venous bloodOrdered By: Lisha Talamantes on 12-16-2024 CO2 [Moles/Vol] 25.5 mmol/L 21.0-32.0 [facility] Chloride assayOrdered By: Sierra Talamantes on 12-16-2024 Chloride [Moles/Vol] 102 mmol/L 98-108 [facility] Culture, Blood (WB)on 2024 CUB Blood cultures x2, from two different sites No growth in 5 days. Normal [facility] Comment on above: Performed By: #### M 200.1000 ####[facility] [address] [place], [address] Glomerular filtration rate ( GFR) estimation/1.73 sq m using serum, plasma, or whole bOrdered By: Lisha Talamantes on 12-16-2024 GFR/1.73 sq M.predicted among non-blacks MDRD (S/P/Bld) [Vol rate/Area] 65 mL/min/{1.73_m2} >60 [facility] Potassium measurement (mass/ volume)Ordered By: Lisha Talamantes on 12-16-2024 Potassium (Unsp spec) [Mass/Vol] 3.6 mmol/L 3.3-5.1 [facility] Serum creatinine measurement (mass/volume)Ordered By: Lisha Talamantes on 12-16-2024 Creatinine [Mass/Vol] 1.17 mg/dL 0.70-1.20 [facility] Serum glucose measurement (m ass/volume)Ordered By: Lisha Talamantes on 12-16-2024 Glucose [Mass/Vol] 108 mg/dL High 70-99 [facility] Serum or plasma calcium luis urement (mass/volume)Ordered By: Lisha Talamantes on 12-16-2024 Calcium [Mass/Vol] 9.4 mg/dL 7.6-11.0 [facility] Serum or plasma urea nitroge n measurement (mass/volume)Ordered By: Lisha Talamantes on 12-16-2024 Urea nitrogen [Mass/Vol] 29 mg/dL High 4-19 [facility] Sodium levelOrdered By: Cecilia Talamantes on 12-16-2024 Sodium [Moles/Vol] 140 mmol/L 133-145 [facility] Absolute lymphocyte countOrd ered By: Lisha Talamantes on 12-15-2024 Lymphocytes Auto (Unsp spec) [#/Vol] 0.82 10*3/uL Low 0.83-4.51 [facility] Automated lymphocyte count a s percentage of total leukocytesOrdered By: Lisha Talamantes on 12-15-2024 Lymphocytes/100 WBC Auto (Unsp spec) 9.8 % Low 19-41 [facility] Basic Metabolic Profile (BMP )on 12-15-2024 BUN/CRE 20.1 RATIO High 10-20 [facility] Comment on above: Performed By: #### L 501.5200, L501.2300, L500.2500, L100.0100 ####[facility] [address] [place], [address] Calcium [Mass/Vol] 9.3 mg/dL Normal 7.6-11.0 [facility] Comment on above: Performed By: #### L 501.5200, L501.2300, L500.2500, L100.0100 ####[facility] [address] [place], [address] Chloride [Moles/Vol] 106 mmol/L Normal 98-108 [facility] Comment on above: Performed By: #### L 501.5200, L501.2300, L500.2500, L100.0100 ####[facility] [address] [place], [address] CO2 [Moles/Vol] 24.0 mmol/L Normal 21.0-32.0 [facility] Comment on above: Performed By: #### L 501.5200, L501.2300, L500.2500, L100.0100 ####[facility] [address] [place], [address] Creatinine [Mass/Vol] 1.10 mg/dL Normal 0.70-1.20 [facility] Comment on above: Performed By: #### L 501.5200, L501.2300, L500.2500, L100.0100 ####[facility] [address] [place], [address] ECRCL 56.14 ml/min Normal 50-250 [facility] Comment on above: Performed By: #### L 501.5200, L501.2300, L500.2500, L100.0100 ####[facility] [address] [place], [address] GAP 12 Normal 5-15 [facility] Comment on above: Performed By: #### L 501.5200, L501.2300, L500.2500, L100.0100 ####[facility] [address] [place], [address] GFR/1.73 sq M.predicted among non-blacks MDRD (S/P/Bld) [Vol rate/Area] 70 mL/min/{1.73_m2} Normal >60 [facility] Comment on above: Result Comment: mL/m in/1.73m2 CKD-EPI Creatinine Equation (2020) Performed By: #### L 501.5200, L501.2300, L500.2500, L100.0100 ####[facility] [address] [place], [address] Glucose [Mass/Vol] 97 mg/dL Normal 70-99 [facility] Comment on above: Performed By: #### L 501.5200, L501.2300, L500.2500, L100.0100 ####[facility] [address] [place], [address] Potassium [Moles/Vol] 4.1 mmol/L Normal 3.3-5.1 [facility] Comment on above: Performed By: #### L 501.5200, L501.2300, L500.2500, L100.0100 ####[facility] [address] [place], [address] Sodium [Moles/Vol] 142 mmol/L Normal 133-145 [facility] Comment on above: Performed By: #### L 501.5200, L501.2300, L500.2500, L100.0100 ####[facility] [address] [place], [address] Urea nitrogen [Mass/Vol] 22 mg/dL High 4-19 [facility] Comment on above: Performed By: #### L 501.5200, L501.2300, L500.2500, L100.0100 ####[facility] [address] [place], [address] Basophil percentageOrdered B y: Lisha Talamantes on 12-15-2024 Basophils/100 WBC (Bld) 0.2 % 0-1 [facility] CBC W/Diff, Automatedon 11-18 Absolute Lymph 0.82 X10 3/uL Low 0.83-4.51 [facility] Comment on above: Performed By: #### L 501.5200, L501.2300, L500.2500, L100.0100 ####[facility] [address] [place], [address] Absolute Neut 7.0 X10 3/uL Normal 2.0-7.7 [facility] Comment on above: Performed By: #### L 501.5200, L501.2300, L500.2500, L100.0100 ####[facility] [address] [place], [address] Basophils/100 WBC (Bld) 0.2 % Normal 0-1 [facility] Comment on above: Performed By: #### L 501.5200, L501.2300, L500.2500, L100.0100 ####[facility] [address] [place], [address] Eosinophils/100 WBC (Bld) 0.0 % Normal 0-5 [facility] Comment on above: Performed By: #### L 501.5200, L501.2300, L500.2500, L100.0100 ####[facility] [address] [place], [address] Erythrocyte distribution width (RBC) [Ratio] 13.8 % Normal 11.6-14.6 [facility] Comment on above: Performed By: #### L 501.5200, L501.2300, L500.2500, L100.0100 ####[facility] [address] [place], [address] Hematocrit (Bld) [Volume fraction] 35.6 % Low 40-54 [facility] Comment on above: Performed By: #### L 501.5200, L501.2300, L500.2500, L100.0100 ####[facility] [address] [place], [address] Hemoglobin (Bld) [Mass/Vol] 11.3 g/dL Low 13.0-16.5 [facility] Comment on above: Performed By: #### L 501.5200, L501.2300, L500.2500, L100.0100 ####[facility] [address] [place], [address] IG% 0.400 Normal 0.0-0.9 [facility] Comment on above: Result Comment: IG% - Immature Granulocytes (promyelocytes, myelocytes andmetamyelocytes) > 1% indicates that a LEFT SHIFT is Present. Performed By: #### L 501.5200, L501.2300, L500.2500, L100.0100 ####[facility] [address] [place], [address] Lymphocytes/100 WBC (Bld) 9.8 % Low 19-41 [facility] Comment on above: Performed By: #### L 501.5200, L501.2300, L500.2500, L100.0100 ####[facility] [address] [place], [address] MCH (RBC) [Entitic mass] 28.2 pg Normal 27.0-32.0 [facility] Comment on above: Performed By: #### L 501.5200, L501.2300, L500.2500, L100.0100 ####[facility] [address] [place], [address] MCHC (RBC) [Mass/Vol] 31.7 g/dL Low 32-36 [facility] Comment on above: Performed By: #### L 501.5200, L501.2300, L500.2500, L100.0100 ####[facility] [address] [place], [address] MCV (RBC) [Entitic vol] 88.8 fL Normal 80-94 [facility] Comment on above: Performed By: #### L 501.5200, L501.2300, L500.2500, L100.0100 ####[facility] [address] [place], [address] Monocytes/100 WBC (Bld) 6.3 % Normal 0-10 [facility] Comment on above: Performed By: #### L 501.5200, L501.2300, L500.2500, L100.0100 ####[facility] [address] [place], [address] Neutrophils/100 WBC (Bld) 83.3 % High 47-70 [facility] Comment on above: Performed By: #### L 501.5200, L501.2300, L500.2500, L100.0100 ####[facility] [address] [place], [address] Nucleated RBC (Bld) [#/Vol] 0 10*3/uL Normal 0-5 [facility] Comment on above: Performed By: #### L 501.5200, L501.2300, L500.2500, L100.0100 ####[facility] [address] [place], [address] Platelet mean volume (Bld) [Entitic vol] 10.0 fL Normal 6.2-12.0 [facility] Comment on above: Performed By: #### L 501.5200, L501.2300, L500.2500, L100.0100 ####[facility] [address] [place], [address] Platelets (Bld) [#/Vol] 329 10*3/uL Normal 150-450 [facility] Comment on above: Performed By: #### L 501.5200, L501.2300, L500.2500, L100.0100 ####[facility] [address] [place], [address] RBC (Bld) [#/Vol] 4.01 10*6/uL Low 4.6-6.2 [facility] Comment on above: Performed By: #### L 501.5200, L501.2300, L500.2500, L100.0100 ####[facility] [address] [place], [address] RDW SD 44.9 fl High 35.1-43.9 [facility] Comment on above: Performed By: #### L 501.5200, L501.2300, L500.2500, L100.0100 ####[facility] [address] [place], [address] WBC (Bld) [#/Vol] 8.4 10*3/uL Normal 4.4-11.0 [facility] Comment on above: Performed By: #### L 501.5200, L501.2300, L500.2500, L100.0100 ####[facility] [address] [place], [address] Eosinophil percentageOrdered By: Lisha Talamantes on 12-15-2024 Eosinophils/100 WBC (Bld) 0.0 % 0-5 [facility] Erythrocyte distribution wid th ratioOrdered By: Lisha Talamantes on 12-15-2024 Erythrocyte distribution width (RBC) [Ratio] 13.8 % 11.6-14.6 [facility] Erythrocyte distribution wid th standard deviationOrdered By: Lisha Talamantes on 12-15-2024 Erythrocyte distribution width (RBC) [Ratio] 44.9 fl High 35.1-43.9 [facility] Hematocrit Auto (Bld) [Volum e fraction]Ordered By: Lisha Talamantes on 12-15-2024 Hematocrit (Bld) [Volume fraction] 35.6 % Low 40-54 [facility] Hemoglobin measurementOrdere d By: Lisha Talamantes on 12-15-2024 Hemoglobin (Bld) [Mass/Vol] 11.3 g/dL Low 13.0-16.5 [facility] Immature granulocytes/100 WB C Auto (Bld)Ordered By: Lisha Talamantes on 12-15-2024 Immature granulocytes/100 WBC (Bld) 0.400 % 0.0-0.9 [facility] MCV (mean corpuscular volume ) determinationOrdered By: Lisha Talamantes on 12-15-2024 MCV (RBC) [Entitic vol] 88.8 fL 80-94 [facility] Magnesiumon 12-15-2024 Magnesium [Mass/Vol] 2.0 mg/dL Normal 1.5-2.2 [facility] Comment on above: Performed By: #### L 501.5200, L501.2300, L500.2500, L100.0100 ####[facility] [address] [place], [address] Magnesium measurement (mass/ volume)Ordered By: Lisha Talamantes on 12-15-2024 Magnesium (Unsp spec) [Mass/Vol] 2.0 mg/dL 1.5-2.2 [facility] Mean corpuscular hemoglobin (MCH) determinationOrdered By: Lisha Talamantes on 12-15-2024 MCH (RBC) [Entitic mass] 28.2 pg 27.0-32.0 [facility] Monocyte percentageOrdered B y: Lisha Talamantes on 12-15-2024 Monocytes/100 WBC (Bld) 6.3 % 0-10 [facility] Neutrophil percentageOrdered By: Lisha Talamantes on 12-15-2024 Neutrophils/100 WBC (Bld) 83.3 % High 47-70 [facility] Phosphoruson 12-15-2024 Phosphate [Mass/Vol] 3.3 mg/dL Normal 2.7-4.5 [facility] Comment on above: Performed By: #### L 501.5200, L501.2300, L500.2500, L100.0100 ####[facility] [address] [place], [address] Platelet countOrdered By: Sierra Talamantes on 12-15-2024 Platelets (Bld) [#/Vol] 329 10*3/uL 150-450 [facility] RBC Auto (Bld) [#/Vol]Ordere d By: Lisha Talamantes on 12-15-2024 RBC (Bld) [#/Vol] 4.01 10*6/uL Low 4.6-6.2 [facility] White blood cell (WBC) count Ordered By: Lisha Talamantes on 12-15-2024 WBC (Bld) [#/Vol] 8.4 10*3/uL 4.4-11.0 [facility] Bilirubin, totalOrdered By: Shilpa Contreras on 12-14-2024 Bilirubin [Mass/Vol] mg/dL 0.00-1.30 [facility] CBC W/Diff, Automatedon 11-18 Absolute Lymph 0.65 X10 3/uL Low 0.83-4.51 [facility] Comment on above: Performed By: #### L 300.3900, L100.0100, L500.4050 ####[facility] [address] [place], [address] Absolute Neut 3.4 X10 3/uL Normal 2.0-7.7 [facility] Comment on above: Performed By: #### L 300.3900, L100.0100, L500.4050 ####[facility] [address] [place], [address] Basophils/100 WBC (Bld) 0.2 % Normal 0-1 [facility] Comment on above: Performed By: #### L 300.3900, L100.0100, L500.4050 ####[facility] [address] [place], [address] Eosinophils/100 WBC (Bld) 0.0 % Normal 0-5 [facility] Comment on above: Performed By: #### L 300.3900, L100.0100, L500.4050 ####[facility] [address] [place], [address] Erythrocyte distribution width (RBC) [Ratio] 13.7 % Normal 11.6-14.6 [facility] Comment on above: Performed By: #### L 300.3900, L100.0100, L500.4050 ####[facility] [address] [place], [address] Hematocrit (Bld) [Volume fraction] 33.7 % Low 40-54 [facility] Comment on above: Performed By: #### L 300.3900, L100.0100, L500.4050 ####[facility] [address] [place], [address] Hemoglobin (Bld) [Mass/Vol] 10.6 g/dL Low 13.0-16.5 [facility] Comment on above: Performed By: #### L 300.3900, L100.0100, L500.4050 ####[facility] [address] [place], [address] IG% 0.200 Normal 0.0-0.9 [facility] Comment on above: Result Comment: IG% - Immature Granulocytes (promyelocytes, myelocytes andmetamyelocytes) > 1% indicates that a LEFT SHIFT is Present. Performed By: #### L 300.3900, L100.0100, L500.4050 ####[facility] [address] [place], [address] Lymphocytes/100 WBC (Bld) 15.0 % Low 19-41 [facility] Comment on above: Performed By: #### L 300.3900, L100.0100, L500.4050 ####[facility] [address] [place], [address] MCH (RBC) [Entitic mass] 27.8 pg Normal 27.0-32.0 [facility] Comment on above: Performed By: #### L 300.3900, L100.0100, L500.4050 ####[facility] [address] [place], [address] MCHC (RBC) [Mass/Vol] 31.5 g/dL Low 32-36 [facility] Comment on above: Performed By: #### L 300.3900, L100.0100, L500.4050 ####[facility] [address] [place], [address] MCV (RBC) [Entitic vol] 88.5 fL Normal 80-94 [facility] Comment on above: Performed By: #### L 300.3900, L100.0100, L500.4050 ####[facility] [address] [place], [address] Monocytes/100 WBC (Bld) 5.3 % Normal 0-10 [facility] Comment on above: Performed By: #### L 300.3900, L100.0100, L500.4050 ####[facility] [address] [place], [address] Neutrophils/100 WBC (Bld) 79.3 % High 47-70 [facility] Comment on above: Performed By: #### L 300.3900, L100.0100, L500.4050 ####[facility] [address] [place], [address] Nucleated RBC (Bld) [#/Vol] 0 10*3/uL Normal 0-5 [facility] Comment on above: Performed By: #### L 300.3900, L100.0100, L500.4050 ####[facility] [address] [place], [address] Platelet mean volume (Bld) [Entitic vol] 10.1 fL Normal 6.2-12.0 [facility] Comment on above: Performed By: #### L 300.3900, L100.0100, L500.4050 ####[facility] [address] [place], [address] Platelets (Bld) [#/Vol] 306 10*3/uL Normal 150-450 [facility] Comment on above: Performed By: #### L 300.3900, L100.0100, L500.4050 ####[facility] [address] [place], [address] RBC (Bld) [#/Vol] 3.81 10*6/uL Low 4.6-6.2 [facility] Comment on above: Performed By: #### L 300.3900, L100.0100, L500.4050 ####[facility] [address] [place], [address] RDW SD 44.5 fl High 35.1-43.9 [facility] Comment on above: Performed By: #### L 300.3900, L100.0100, L500.4050 ####[facility] [address] [place], [address] WBC (Bld) [#/Vol] 4.3 10*3/uL Low 4.4-11.0 [facility] Comment on above: Performed By: #### L 300.3900, L100.0100, L500.4050 ####[facility] [address] [place], [address] Comprehensive Metabolic Prof ilon 12-14-2024 ALK PHOS 70 U/L Normal 40-129 [facility] Comment on above: Performed By: #### L 300.3900, L100.0100, L500.4050 ####[facility] [address] [place], [address] AST [Catalytic activity/Vol] 18 U/L Normal <=37 [facility] Comment on above: Performed By: #### L 300.3900, L100.0100, L500.4050 ####[facility] [id number] [place], [address] BUN/CRE 12.3 RATIO Normal 10-20 [facility] Comment on above: Performed By: #### L 300.3900, L100.0100, L500.4050 ####[facility] [address] [place], [address] Calcium [Mass/Vol] 9.5 mg/dL Normal 7.6-11.0 [facility] Comment on above: Performed By: #### L 300.3900, L100.0100, L500.4050 ####[facility] [address] [place], [address] Chloride [Moles/Vol] 105 mmol/L Normal 98-108 [facility] Comment on above: Performed By: #### L 300.3900, L100.0100, L500.4050 ####[facility] [address] [place], [address] CO2 [Moles/Vol] 24.4 mmol/L Normal 21.0-32.0 [facility] Comment on above: Performed By: #### L 300.3900, L100.0100, L500.4050 ####[facility] [address] [place], [address] Creatinine [Mass/Vol] 1.04 mg/dL Normal 0.70-1.20 [facility] Comment on above: Performed By: #### L 300.3900, L100.0100, L500.4050 ####[facility] [address] [place], [address] ECRCL 59.38 ml/min Normal 50-250 [facility] Comment on above: Performed By: #### L 300.3900, L100.0100, L500.4050 ####[facility] [address] [place], [address] GAP 13 Normal 5-15 [facility] Comment on above: Performed By: #### L 300.3900, L100.0100, L500.4050 ####[facility] [address] [place], [address] GFR/1.73 sq M.predicted among non-blacks MDRD (S/P/Bld) [Vol rate/Area] 75 mL/min/{1.73_m2} Normal >60 [facility] Comment on above: Result Comment: mL/m in/1.73m2 CKD-EPI Creatinine Equation (2020) Performed By: #### L 300.3900, L100.0100, L500.4050 ####[facility] [address] [place], [address] Glucose [Mass/Vol] 129 mg/dL High 70-99 [facility] Comment on above: Performed By: #### L 300.3900, L100.0100, L500.4050 ####[facility] [address] [place], [address] Potassium [Moles/Vol] 3.8 mmol/L Normal 3.3-5.1 [facility] Comment on above: Performed By: #### L 300.3900, L100.0100, L500.4050 ####[facility] [address] [place], [address] Sodium [Moles/Vol] 143 mmol/L Normal 133-145 [facility] Comment on above: Performed By: #### L 300.3900, L100.0100, L500.4050 ####[facility] [address] [place], [address] T BILI < 0.15 Normal 0.00-1.30 [facility] Comment on above: Performed By: #### L 300.3900, L100.0100, L500.4050 ####[facility] [address] [place], [address] T PROT 6.6 g/dL Normal 5.9-8.4 [facility] Comment on above: Performed By: #### L 300.3900, L100.0100, L500.4050 ####[facility] [address] [place], [address] Urea nitrogen [Mass/Vol] 13 mg/dL Normal 4-19 [facility] Comment on above: Performed By: #### L 300.3900, L100.0100, L500.4050 ####[facility] [address] [place], [address] No Panel InformationOrdered By: Shilpa Contreras on 12-14-2024 18 U/L <38 [facility] Prothrombin Time w/INRon INR Coag (PPP) [Relative time] 1.0 {INR} Normal [facility] Comment on above: Performed By: #### L 300.3900, L100.0100, L500.4050 ####[facility] [address] [place], [address] PT Coag (PPP) [Time] 13.5 s Normal 11.7-14.9 [facility] Comment on above: Performed By: #### L 300.3900, L100.0100, L500.4050 ####[facility] [address] [place], [address] Prothrombin timeOrdered By: Shilpa Contreras on 12-14-2024 PT Coag (PPP) [Time] 13.5 s 11.7-14.9 [facility] RESPIRATORY PANEL MOLECULARo n 12-14-2024 RP PANEL Normal [facility] Comment on above: Performed By: #### M 100.638 ####[facility] [address] [place], [address] Serum globulin measurementOr dered By: Shilpa Contreras on 12-14-2024 Globulin (S) [Mass/Vol] 2.5 g/dL 2.2-4.2 [facility] Comment on above: Performed By: #### L 300.3900, L100.0100, L500.4050 ####[facility] [address] [place], [address] Serum or plasma alanine saul otransferase (ALT) measurementOrdered By: Shilpa Ben on 12-14-2024 ALT [Catalytic activity/Vol] 16 U/L <47 [facility] Comment on above: Performed By: #### L 300.3900, L100.0100, L500.4050 ####[facility] [address] [place], [address] Serum or plasma albumin luis urement (mass/volume)Ordered By: Shilpa Contreras on 12-14-2024 Albumin [Mass/Vol] 4.0 g/dL 3.4-4.8 [facility] Comment on above: Performed By: #### L 300.3900, L100.0100, L500.4050 ####[facility] [address] [place], [address] Serum or plasma albumin/glob ulin mass ratioOrdered By: Shilpa Ben on 12-14-2024 Albumin/Globulin [Mass ratio] 1.6 {ratio} 0.9-2.4 [facility] Comment on above: Performed By: #### L 300.3900, L100.0100, L500.4050 ####[facility] [address] [place], [address] Serum or plasma alkaline kathleen sphatase measurementOrdered By: Shilpa White on 12-14-2024 ALP [Catalytic activity/Vol] 70 U/L 40-129 [facility] Total proteinOrdered By: Aut umn White on 12-14-2024 Protein [Mass/Vol] 6.6 g/dL 5.9-8.4 [facility] Absolute lymphocyte countOrd ered By: Remus Ungkevin on 12-13-2024 Lymphocytes Auto (Unsp spec) [#/Vol] 1.16 10*3/uL 0.83-4.51 [facility] Absolute neutrophil countOrd ered By: Remus Ungkevin on 12-13-2024 Neutrophils (Bld) [#/Vol] 4.0 10*3/uL 2.0-7.7 [facility] Anion gap in Serum or Plasma Ordered By: Remus Aaron on 12-13-2024 Anion gap [Moles/Vol] 13 mmol/L 5-15 [facility] Automated lymphocyte count a s percentage of total leukocytesOrdered By: Charis Walker on 12-13-2024 Lymphocytes/100 WBC Auto (Unsp spec) 19.5 % 19-41 [facility] BUN/creatinine ratioOrdered By: [facility] on 12-13-2024 Urea nitrogen/Creatinine [Mass ratio] 11.0 mg/mg 10-20 [facility] Basic Metabolic Profile (BMP )on 12-13-2024 BUN/CRE 11.0 RATIO Normal - [facility] Comment on above: Performed By: #### L 100.0100, L500.2500 ####[facility] [address] [place], [address] Calcium [Mass/Vol] 9.7 mg/dL Normal 7.6-11.0 [facility] Comment on above: Performed By: #### L 100.0100, L500.2500 ####[facility] [address] [place], [address] Chloride [Moles/Vol] 104 mmol/L Normal 98-108 [facility] Comment on above: Performed By: #### L 100.0100, L500.2500 ####[facility] [address] [place], [address] CO2 [Moles/Vol] 24.4 mmol/L Normal 21.0-32.0 [facility] Comment on above: Performed By: #### L 100.0100, L500.2500 ####[facility] [address] [place], [address] Creatinine [Mass/Vol] 1.11 mg/dL Normal 0.70-1.20 [facility] Comment on above: Performed By: #### L 100.0100, L500.2500 ####[facility] [address] [place], [address] ECRCL 55.63 ml/min Normal 50-250 [facility] Comment on above: Performed By: #### L 100.0100, L500.2500 ####[facility] [address] [place], [address] GAP 13 Normal 5-15 [facility] Comment on above: Performed By: #### L 100.0100, L500.2500 ####[facility] [address] [place], [address] GFR/1.73 sq M.predicted among non-blacks MDRD (S/P/Bld) [Vol rate/Area] 69 mL/min/{1.73_m2} Normal >60 [facility] Comment on above: Result Comment: mL/m in/1.73m2 CKD-EPI Creatinine Equation (2020) Performed By: #### L 100.0100, L500.2500 ####[facility] [address] [place], [address] Glucose [Mass/Vol] 102 mg/dL High 70-99 [facility] Comment on above: Performed By: #### L 100.0100, L500.2500 ####[facility] [address] [place], [address] Potassium [Moles/Vol] 3.7 mmol/L Normal 3.3-5.1 [facility] Comment on above: Performed By: #### L 100.0100, L500.2500 ####[facility] [address] [place], [address] Sodium [Moles/Vol] 141 mmol/L Normal 133-145 [facility] Comment on above: Performed By: #### L 100.0100, L500.2500 ####[facility] [address] [place], [address] Urea nitrogen [Mass/Vol] 12 mg/dL Normal 4-19 [facility] Comment on above: Performed By: #### L 100.0100, L500.2500 ####[facility] [address] [place], [address] Basophil percentageOrdered B y: Remus Ungur on 12-13-2024 Basophils/100 WBC (Bld) 1.0 % 0-1 [facility] Blood cultureOrdered By: Rem us Ungur on 12-13-2024 Bacteria identified Cx Nom (Bld) No growth in 5 days. [facility] Bacteria identified Cx Nom (Bld) No growth in 5 days. [facility] CBC W/Diff, Automatedon - Absolute Lymph 1.16 X10 3/uL Normal 0.83-4.51 [facility] Comment on above: Performed By: #### L 100.0100, L500.2500 ####[facility] [address] [place], [address] Absolute Neut 4.0 X10 3/uL Normal 2.0-7.7 [facility] Comment on above: Performed By: #### L 100.0100, L500.2500 ####[facility] [address] [place], [address] Basophils/100 WBC (Bld) 1.0 % Normal 0-1 [facility] Comment on above: Performed By: #### L 100.0100, L500.2500 ####[facility] [address] [place], [address] Eosinophils/100 WBC (Bld) 3.0 % Normal 0-5 [facility] Comment on above: Performed By: #### L 100.0100, L500.2500 ####[facility] [address] [place], [address] Erythrocyte distribution width (RBC) [Ratio] 13.7 % Normal 11.6-14.6 [facility] Comment on above: Performed By: #### L 100.0100, L500.2500 ####[facility] [address] [place], [address] Hematocrit (Bld) [Volume fraction] 37.5 % Low 40-54 [facility] Comment on above: Performed By: #### L 100.0100, L500.2500 ####[facility] [address] [place], [address] Hemoglobin (Bld) [Mass/Vol] 11.5 g/dL Low 13.0-16.5 [facility] Comment on above: Performed By: #### L 100.0100, L500.2500 ####[facility] [address] [place], [address] IG% 0.300 Normal 0.0-0.9 [facility] Comment on above: Result Comment: IG% - Immature Granulocytes (promyelocytes, myelocytes andmetamyelocytes) > 1% indicates that a LEFT SHIFT is Present. Performed By: #### L 100.0100, L500.2500 ####[facility] [address] [place], [address] Lymphocytes/100 WBC (Bld) 19.5 % Normal 19-41 [facility] Comment on above: Performed By: #### L 100.0100, L500.2500 ####[facility] [address] [place], [address] MCH (RBC) [Entitic mass] 27.7 pg Normal 27.0-32.0 [facility] Comment on above: Performed By: #### L 100.0100, L500.2500 ####[facility] [address] [place], [address] MCHC (RBC) [Mass/Vol] 30.7 g/dL Low 32-36 [facility] Comment on above: Performed By: #### L 100.0100, L500.2500 ####[facility] [address] [place], [address] MCV (RBC) [Entitic vol] 90.4 fL Normal 80-94 [facility] Comment on above: Performed By: #### L 100.0100, L500.2500 ####[facility] [address] [place], [address] Monocytes/100 WBC (Bld) 8.9 % Normal 0-10 [facility] Comment on above: Performed By: #### L 100.0100, L500.2500 ####[facility] [address] [place], [address] Neutrophils/100 WBC (Bld) 67.3 % Normal 47-70 [facility] Comment on above: Performed By: #### L 100.0100, L500.2500 ####[facility] [address] [place], [address] Nucleated RBC (Bld) [#/Vol] 0 10*3/uL Normal 0-5 [facility] Comment on above: Performed By: #### L 100.0100, L500.2500 ####[facility] [address] [place], [address] Platelet mean volume (Bld) [Entitic vol] 9.7 fL Normal 6.2-12.0 [facility] Comment on above: Performed By: #### L 100.0100, L500.2500 ####[facility] [address] [place], [address] Platelets (Bld) [#/Vol] 299 10*3/uL Normal 150-450 [facility] Comment on above: Performed By: #### L 100.0100, L500.2500 ####[facility] [address] [place], [address] RBC (Bld) [#/Vol] 4.15 10*6/uL Low 4.6-6.2 [facility] Comment on above: Performed By: #### L 100.0100, L500.2500 ####[facility] [address] [place], [address] RDW SD 44.8 fl High 35.1-43.9 [facility] Comment on above: Performed By: #### L 100.0100, L500.2500 ####[facility] [address] [place], [address] WBC (Bld) [#/Vol] 5.9 10*3/uL Normal 4.4-11.0 [facility] Comment on above: Performed By: #### L 100.0100, L500.2500 ####[facility] [address] [place], [address] CO2 (BldV) [Moles/Vol]Ordere d By: Shilpa Contreras on 12-13-2024 CO2 [Moles/Vol] 28 mmol/L 23-33 [facility] Carbon dioxide, total [Moles /volume] in Central venous bloodOrdered By: Charis Walker on 12-13-2024 CO2 [Moles/Vol] 24.4 mmol/L 21.0-32.0 [facility] Chest 1 View (Portable)on Chest 1 View (Portable) Normal [facility] Chloride assayOrdered By: Ame Walker on 12-13-2024 Chloride [Moles/Vol] 104 mmol/L 98-108 [facility] Emergency Department Summary on 12-13-2024 Emergency Department Summary Normal [facility] Eosinophil percentageOrdered By: Charis Walker on 12-13-2024 Eosinophils/100 WBC (Bld) 3.0 % 0-5 [facility] Erythrocyte distribution wid th ratioOrdered By: Charis Walker on 12-13-2024 Erythrocyte distribution width (RBC) [Ratio] 13.7 % 11.6-14.6 [facility] Erythrocyte distribution wid th standard deviationOrdered By: Charis Walker on 12-13-2024 Erythrocyte distribution width (RBC) [Ratio] 44.8 fl High 35.1-43.9 [facility] Glomerular filtration rate ( GFR) estimation/1.73 sq m using serum, plasma, or whole bOrdered By: Charis Walker on 12-13-2024 GFR/1.73 sq M.predicted among non-blacks MDRD (S/P/Bld) [Vol rate/Area] 69 mL/min/{1.73_m2} >60 [facility] Comment on above: mL/min/1.73m2 CKD-EP I Creatinine Equation (2020) H AND P Exam - [facility] 12-13-2024 H&P Exam - Hospitalist Normal [facility] Hematocrit Auto (Bld) [Volum e fraction]Ordered By: Charis Walker on 12-13-2024 Hematocrit (Bld) [Volume fraction] 37.5 % Low 40-54 [facility] Hemoglobin measurementOrdere d By: Charis Walker on 12-13-2024 Hemoglobin (Bld) [Mass/Vol] 11.5 g/dL Low 13.0-16.5 [facility] Immature granulocytes/100 WB C Auto (Bld)Ordered By: Charis Walker on 12-13-2024 Immature granulocytes/100 WBC (Bld) 0.300 % 0.0-0.9 [facility] Comment on above: IG% - Immature Granu locytes (promyelocytes, myelocytes and metamyelocytes) > 1% indicates that a LEFT SHIFT is Present. Influenza virus A and B and SARS-CoV-2 (COVID-19) and Respiratory syncytial virus RNAOrdered By: Charis Walker on 12-13-2024 SARS-CoV-2 (COVID-19) RNA ALEENA+probe Ql (Unsp spec) [facility] International normalized rat io (INR) calculationOrdered By: Charis Walker on 12-13-2024 INR Coag (Bld) [Relative time] 0.9 {INR} [facility] L509.7001on 12-13-2024 Procalcitonin 0.05 ng/mL Normal <=0.10 [facility] Comment on above: Result Comment: Inte rpretation:<0.10-0.25 ng/mL: Antibiotic therapy discouraged. Bacterialinfection unlikely.0.25-0.50 ng/mL: Antibiotic therapy encouraged. Bacterialinfection possible.>0.50 ng/mL: Antibiotic therapy strongly encouraged.Suggestive of presence of bacterial infection.PCT should always be interpreted in the clinical context ofthe patient. Therefore, clinicians should use the PCTresults in conjunction with other laboratory findings andclinical signs of the patient. Performed By: #### L 509.7001 ####[facility] [address] [place], [address] M100.678on 12-13-2024 M100.678 Pending SARS-CoV-2 (COVID 19) Negative INFLUENZA A Negative INFLUENZA B Negative RSV PCR Negative Normal [facility] Comment on above: Performed By: #### M 100.678 ####[facility] [address] [place], [address] MCV (mean corpuscular volume ) determinationOrdered By: Charis Walker on 12-13-2024 MCV (RBC) [Entitic vol] 90.4 fL 80-94 [facility] Mean corpuscular hemoglobin (MCH) determinationOrdered By: Charis Walker on 12-13-2024 MCH (RBC) [Entitic mass] 27.7 pg 27.0-32.0 [facility] Mean corpuscular hemoglobin concentration (MCHC) determinationOrdered By: Charis Walker on 12-13-2024 MCHC (RBC) [Mass/Vol] 30.7 g/dL Low 32-36 [facility] Mean platelet volume determi nationOrdered By: Remus Walker on 12-13-2024 Platelet mean volume (Bld) [Entitic vol] 9.7 fL 6.2-12.0 [facility] Monocyte percentageOrdered B y: Charis Walker on 12-13-2024 Monocytes/100 WBC (Bld) 8.9 % 0-10 [facility] Neutrophil percentageOrdered By: Charis Walker on 12-13-2024 Neutrophils/100 WBC (Bld) 67.3 % 47-70 [facility] No Panel InformationOrdered By: Shilpa Contreras on 12-13-2024 Blood Gas Sample Site Not entered [facility] Blood Gas Specimen Type LASHAE [facility] Oxygen Delivery Device Cannula [facility] LASHAE [facility] Not entered [facility] Cannula [facility] Nucleated red blood cell per centageOrdered By: Charis Walker on 12-13-2024 Nucleated RBC/100 WBC (Bld) [Ratio] 0 % 0-5 [facility] Platelet countOrdered By: Ame Walker on 12-13-2024 Platelets (Bld) [#/Vol] 299 10*3/uL 150-450 [facility] Potassium measurement (mass/ volume)Ordered By: Charis Walker on 12-13-2024 Potassium (Unsp spec) [Mass/Vol] 3.7 mmol/L 3.3-5.1 [facility] Procalcitonin [Mass/volume] in Serum or Plasma by ImmunoassayOrdered By: Shilpa Contreras on 12-13-2024 Procalcitonin IA [Mass/Vol] 0.05 ng/mL <0.11 [facility] Prothrombin Time w/INRon INR Coag (PPP) [Relative time] 0.9 {INR} Normal [facility] Comment on above: Performed By: #### L 300.3900 ####[facility] [address] [place], [place], [address] PT Coag (PPP) [Time] 12.5 s Normal 11.7-14.9 [facility] Comment on above: Performed By: #### L 300.3900 ####[facility] [address] [place], [place], [address] Prothrombin timeOrdered By: Charis Barneskevin on 12-13-2024 PT Coag (PPP) [Time] 12.5 s 11.7-14.9 [facility] RBC Auto (Bld) [#/Vol]Ordere d By: Charis Barneskevin on 12-13-2024 RBC (Bld) [#/Vol] 4.15 10*6/uL Low 4.6-6.2 [facility] Respiratory pathogens detect ion panel by molecular detection methodOrdered By: Shilpa Contreras on 12-13-2024 Respiratory pathogens DNA and RNA panel ALEENA+probe (Resp) [facility] Serum creatinine measurement (mass/volume)Ordered By: Charis Aaron on 12-13-2024 Creatinine [Mass/Vol] 1.11 mg/dL 0.70-1.20 [facility] Serum glucose measurement (m ass/volume)Ordered By: Aliyahus Walker on 12-13-2024 Glucose [Mass/Vol] 102 mg/dL High 70-99 [facility] Serum or plasma calcium luis urement (mass/volume)Ordered By: Charis Barneskevin on 12-13-2024 Calcium [Mass/Vol] 9.7 mg/dL 7.6-11.0 [facility] Serum or plasma urea nitroge n measurement (mass/volume)Ordered By: Charis Barneskevin on 12-13-2024 Urea nitrogen [Mass/Vol] 12 mg/dL 4-19 [facility] Sodium levelOrdered By: Nelson Walker on 12-13-2024 Sodium [Moles/Vol] 141 mmol/L 133-145 [facility] Venous Blood Gason 5 Blood Gas Type LASHAE Normal [facility] Comment on above: Performed By: #### L 9000.0810 ####[facility] [address] [place], [place], [address] CO2 [Moles/Vol] 28 mmol/L Normal 23-33 [facility] Comment on above: Performed By: #### L 9000.0810 ####[facility] [address] [place], [address] FI02 4.0 Normal [facility] Comment on above: Performed By: #### L 9000.0810 ####[facility] [address] [place], [address] HCO3 (Bld) [Moles/Vol] 26 mmol/L Normal 22-26 [facility] Comment on above: Performed By: #### L 9000.0810 ####[facility] [address] [place], [address] O2 Delivery Dev Cannula Normal [facility] Comment on above: Performed By: #### L 9000.0810 ####[facility] [address] [place], [address] SITE Not entered Normal [facility] Comment on above: Performed By: #### L 9000.0810 ####[facility] [address] [place], [address] VBG BE 2 mmol/L Normal -1.0-3.5 [facility] Comment on above: Performed By: #### L 9000.0810 ####[facility] [address] [place], [address] VBG pCO2 42.7 mmHg Normal 41-51 [facility] Comment on above: Performed By: #### L 9000.0810 ####[facility] [address] [place], [address] VBG pH 7.40 Normal 7.32-7.42 [facility] Comment on above: Performed By: #### L 9000.0810 ####[facility] [address] [place], [address] VBG PO2 56 mmHg High 25-40 [facility] Comment on above: Performed By: #### L 9000.0810 ####[facility] [address] [place], [address] VBG SO2 89 High 50-70 [facility] Comment on above: Performed By: #### L 9000.0810 ####[facility] [address] [place], [place], [address] Venous blood base excess arlyn surementOrdered By: Shilpa Contreras on 12-13-2024 Base excess Calc (BldV) [Moles/Vol] 2 mmol/L -1.0-3.5 [facility] Venous blood bicarbonate arlyn surementOrdered By: Shilpa Contreras on 12-13-2024 HCO3 (Bld) [Moles/Vol] 26 mmol/L 22-26 [facility] Venous blood oxygen saturati on measurementOrdered By: Shilpa Contreras on 12-13-2024 Oxygen saturation in Blood 89 % High 50-70 [facility] Venous blood pH measurementO rdered By: Shilpa Contreras on 12-13-2024 pH (BldV) 7.40 [pH] 7.32-7.42 [facility] Venous blood partial pressur e of carbon dioxide measurementOrdered By: Shilpa Contreras on 12-13-2024 CO2 (BldV) [Partial pressure] 42.7 mm[Hg] 41-51 [facility] Venous blood partial pressur e of oxygen measurementOrdered By: Shilpa Contreras on 12-13-2024 Oxygen (BldV) [Partial pressure] 56 mm[Hg] High 25-40 [facility] White blood cell (WBC) count Ordered By: Charis Walker on 12-13-2024 WBC (Bld) [#/Vol] 5.9 10*3/uL 4.4-11.0 [facility] CBC W Auto Differential pane l (Bld)on 12-12-2024 Basophils (Bld) [#/Vol] 0.09 10*3/uL [facility] Basophils/100 WBC (Bld) 1.5 % [facility] Differential cell count method Nom (Bld) Auto [facility] Eosinophils (Bld) [#/Vol] 0.22 10*3/uL [facility] Eosinophils/100 WBC (Bld) 3.7 % [facility] Erythrocyte distribution width (RBC) [Ratio] 13.8 % 11.5 - 15.0 % [facility] Hematocrit (Bld) [Volume fraction] 38.3 % Low 39.0 - 51.0 % [facility] Hemoglobin (Bld) [Mass/Vol] 11.7 g/dL Low 13.0 - 17.0 g/dL [facility] Immature granulocytes (Bld) [#/Vol] NINF [facility] Immature granulocytes/100 WBC (Bld) 0.3 % [facility] Interpretation and review of laboratory results Abnormal [facility] Lymphocytes (Bld) [#/Vol] 0.8 10*3/uL Low [facility] Lymphocytes/100 WBC (Bld) 13.6 % [facility] MCH (RBC) [Entitic mass] 27.9 pg 26. 0 - 34.0 pg [facility] MCHC (RBC) [Mass/Vol] 30.5 g/dL 30.5 - 36.0 g/dL [facility] MCV (RBC) [Entitic vol] 91.4 fL 80.0 - 100.0 fL [facility] Monocytes (Bld) [#/Vol] 0.51 10*3/uL [facility] Monocytes/100 WBC (Bld) 8.7 % [facility] Neutrophils (Bld) [#/Vol] 4.25 10*3/uL [facility] Neutrophils/100 WBC (Bld) 72.2 % [facility] Nucleated RBC (Bld) [#/Vol] [facility] Nucleated RBC/100 WBC (Bld) [Ratio] 0 % /100 WBC [facility] Platelet mean volume (Bld) [Entitic vol] 10.5 fL 9.0 - 12.7 fL [facility] Platelets (Bld) [#/Vol] 310 10*3/uL [facility] RBC (Bld) [#/Vol] 4.19 10*6/uL Low 4.20 - 6.0 0 m/uL [facility] WBC (Bld) [#/Vol] 5.89 10*3/uL [facility] Anion gap in Serum or Plasma Ordered By: Carla Prather on 12-02-2024 Anion gap [Moles/Vol] 11 mmol/L 5-15 [facility] BUN/creatinine ratioOrdered By: Carla Prather on 12-02-2024 Urea nitrogen/Creatinine [Mass ratio] 23.5 mg/mg High 10-20 [facility] Basic Metabolic Profile (BMP )on 12-02-2024 BUN/CRE 23.5 RATIO High 10-20 [facility] Comment on above: Order Comment: 307.2 Performed By: #### L 100.0500, L500.2500, L506.1001 ####[facility] [address] [place], [address] Calcium [Mass/Vol] 9.4 mg/dL Normal 7.6-11.0 [facility] Comment on above: Order Comment: 307.2 Performed By: #### L 100.0500, L500.2500, L506.1001 ####[facility] [address] [place], [address] Chloride [Moles/Vol] 104 mmol/L Normal 98-108 [facility] Comment on above: Order Comment: 307.2 Performed By: #### L 100.0500, L500.2500, L506.1001 ####[facility] [address] [place], [address] CO2 [Moles/Vol] 25.5 mmol/L Normal 21.0-32.0 [facility] Comment on above: Order Comment: 307.2 Performed By: #### L 100.0500, L500.2500, L506.1001 ####[facility] [address] [place], [address] Creatinine [Mass/Vol] 1.21 mg/dL High 0.70-1.20 [facility] Comment on above: Order Comment: 307.2 Performed By: #### L 100.0500, L500.2500, L506.1001 ####[facility] [address] [place], [address] GAP 11 Normal 5-15 [facility] Comment on above: Order Comment: 307.2 Performed By: #### L 100.0500, L500.2500, L506.1001 ####[facility] [address] [place], [address] GFR/1.73 sq M.predicted among non-blacks MDRD (S/P/Bld) [Vol rate/Area] 62 mL/min/{1.73_m2} Normal >60 [facility] Comment on above: Order Comment: 307.2 Result Comment: mL/m in/1.73m2 CKD-EPI Creatinine Equation (2020) Performed By: #### L 100.0500, L500.2500, L506.1001 ####[facility] [address] [place], [address] Glucose [Mass/Vol] 86 mg/dL Normal 70-99 [facility] Comment on above: Order Comment: 307.2 Performed By: #### L 100.0500, L500.2500, L506.1001 ####[facility] [address] [place], [address] Potassium [Moles/Vol] 4.1 mmol/L Normal 3.3-5.1 [facility] Comment on above: Order Comment: 307.2 Performed By: #### L 100.0500, L500.2500, L506.1001 ####[facility] [address] [place], [address] Sodium [Moles/Vol] 141 mmol/L Normal 133-145 [facility] Comment on above: Order Comment: 307.2 Performed By: #### L 100.0500, L500.2500, L506.1001 ####[facility] [address] [place], [address] Urea nitrogen [Mass/Vol] 28 mg/dL High 4-19 [facility] Comment on above: Order Comment: 307.2 Performed By: #### L 100.0500, L500.2500, L506.1001 ####[facility] [address] [place], [address] CBC-Complete Blood Cnt No Di ffon 12-02-2024 Erythrocyte distribution width (RBC) [Ratio] 13.2 % Normal 11.6-14.6 [facility] Comment on above: Order Comment: 307.2 Performed By: #### L 100.0500, L500.2500, L506.1001 ####[facility] [address] [place], [address] Hematocrit (Bld) [Volume fraction] 35.2 % Low 40-54 [facility] Comment on above: Order Comment: 307.2 Performed By: #### L 100.0500, L500.2500, L506.1001 ####[facility] [address] [place], [address] Hemoglobin (Bld) [Mass/Vol] 11.1 g/dL Low 13.0-16.5 [facility] Comment on above: Order Comment: 307.2 Performed By: #### L 100.0500, L500.2500, L506.1001 ####[facility] [address] [place], [address] MCH (RBC) [Entitic mass] 28.6 pg Normal 27.0-32.0 [facility] Comment on above: Order Comment: 307.2 Performed By: #### L 100.0500, L500.2500, L506.1001 ####[facility] [address] [place], [address] MCHC (RBC) [Mass/Vol] 31.5 g/dL Low 32-36 [facility] Comment on above: Order Comment: 307.2 Performed By: #### L 100.0500, L500.2500, L506.1001 ####[facility] [address] [place], [address] MCV (RBC) [Entitic vol] 90.7 fL Normal 80-94 [facility] Comment on above: Order Comment: 307.2 Performed By: #### L 100.0500, L500.2500, L506.1001 ####[facility] [address] [place], [address] Platelet mean volume (Bld) [Entitic vol] 10.2 fL Normal 6.2-12.0 [facility] Comment on above: Order Comment: 307.2 Performed By: #### L 100.0500, L500.2500, L506.1001 ####[facility] [address] [place], [address] Platelets (Bld) [#/Vol] 314 10*3/uL Normal 150-450 [facility] Comment on above: Order Comment: 307.2 Performed By: #### L 100.0500, L500.2500, L506.1001 ####[facility] [address] [place], [address] RBC (Bld) [#/Vol] 3.88 10*6/uL Low 4.6-6.2 [facility] Comment on above: Order Comment: 307.2 Performed By: #### L 100.0500, L500.2500, L506.1001 ####[facility] [address] [place], [address] RDW SD 43.6 fl Normal 35.1-43.9 [facility] Comment on above: Order Comment: 307.2 Performed By: #### L 100.0500, L500.2500, L506.1001 ####[facility] [address] [place], [address] WBC (Bld) [#/Vol] 5.1 10*3/uL Normal 4.4-11.0 [facility] Comment on above: Order Comment: 307.2 Performed By: #### L 100.0500, L500.2500, L506.1001 ####[facility] [address] [place], [address] Carbon dioxide, total [Moles /volume] in Central venous bloodOrdered By: Carla Prather on 12-02-2024 CO2 [Moles/Vol] 25.5 mmol/L 21.0-32.0 [facility] Chloride assayOrdered By: Wilfredo Prather on 12-02-2024 Chloride [Moles/Vol] 104 mmol/L 98-108 [facility] Erythrocyte distribution wid th ratioOrdered By: Carla Prather on 12-02-2024 Erythrocyte distribution width (RBC) [Ratio] 13.2 % 11.6-14.6 [facility] Erythrocyte distribution wid th standard deviationOrdered By: Carla Prather on 12-02-2024 Erythrocyte distribution width (RBC) [Ratio] 43.6 fl 35.1-43.9 [facility] Glomerular filtration rate ( GFR) estimation/1.73 sq m using serum, plasma, or whole bOrdered By: Carla Prather on 12-02-2024 GFR/1.73 sq M.predicted among non-blacks MDRD (S/P/Bld) [Vol rate/Area] 62 mL/min/{1.73_m2} >60 [facility] Comment on above: mL/min/1.73m2 CKD-EP I Creatinine Equation (2020) Hematocrit Auto (Bld) [Volum e fraction]Ordered By: Carla Prather on 12-02-2024 Hematocrit (Bld) [Volume fraction] 35.2 % Low 40-54 [facility] Hemoglobin measurementOrdere d By: Carla Prather on 12-02-2024 Hemoglobin (Bld) [Mass/Vol] 11.1 g/dL Low 13.0-16.5 [facility] MCV (mean corpuscular volume ) determinationOrdered By: Carla Prather on 12-02-2024 MCV (RBC) [Entitic vol] 90.7 fL 80-94 [facility] Mean corpuscular hemoglobin (MCH) determinationOrdered By: Carla Prather on 12-02-2024 MCH (RBC) [Entitic mass] 28.6 pg 27.0-32.0 [facility] Mean corpuscular hemoglobin concentration (MCHC) determinationOrdered By: Carla Prather on 12-02-2024 MCHC (RBC) [Mass/Vol] 31.5 g/dL Low 32-36 [facility] Mean platelet volume determi nationOrdered By: Carla Prather on 12-02-2024 Platelet mean volume (Bld) [Entitic vol] 10.2 fL 6.2-12.0 [facility] Platelet countOrdered By: Wilfredo Prather on 12-02-2024 Platelets (Bld) [#/Vol] 314 10*3/uL 150-450 [facility] Potassium measurement (mass/ volume)Ordered By: Carla Prather on 12-02-2024 Potassium (Unsp spec) [Mass/Vol] 4.1 mmol/L 3.3-5.1 [facility] RBC Auto (Bld) [#/Vol]Ordere d By: Carla Prather on 12-02-2024 RBC (Bld) [#/Vol] 3.88 10*6/uL Low 4.6-6.2 [facility] Serum creatinine measurement (mass/volume)Ordered By: Carla Prather on 12-02-2024 Creatinine [Mass/Vol] 1.21 mg/dL High 0.70-1.20 [facility] Serum glucose measurement (m ass/volume)Ordered By: Carla Prather on 12-02-2024 Glucose [Mass/Vol] 86 mg/dL 70-99 [facility] Serum or plasma calcium luis urement (mass/volume)Ordered By: Carla Prather on 12-02-2024 Calcium [Mass/Vol] 9.4 mg/dL 7.6-11.0 [facility] Serum or plasma urea nitroge n measurement (mass/volume)Ordered By: Carla Prather on 12-02-2024 Urea nitrogen [Mass/Vol] 28 mg/dL High 4-19 [facility] Sodium levelOrdered By: Luca Prather on 12-02-2024 Sodium [Moles/Vol] 141 mmol/L 133-145 [facility] Vitamin D,25 Hydroxyon 12-02 Vitamin D 25-OH 46.6 ng/mL Normal 30-100 [facility] Comment on above: Order Comment: 307.2 Result Comment: Teri min D StatusDeficiency: <20 ng/mL (50nmol/L)Insufficiency: 20-30 ng/mL (50-75 nmol/L)Sufficiency: 30-100 ng/mL (75-250 nmol/L)Toxicity: >100 ng/mL (>250 nmol/L) Performed By: #### L 100.0500, L500.2500, L506.1001 ####[facility] [address] [place], [place], [id number] White blood cell (WBC) count Ordered By: Carla Prather on 12-02-2024 WBC (Bld) [#/Vol] 5.1 10*3/uL 4.4-11.0 [facility] Calculated very low density lipoprotein (VLDL) cholesterol measurementOrdered By: Carla Prather on 11-05-2024 Calculated very low density lipoprotein (VLDL) cholesterol measurement 13 mg/dL [facility] LDL calc ser/plasOrdered By: Carla Prather on 11-05-2024 Cholesterol in LDL [Mass/Vol] 63 mg/dL [facility] Comment on above: Upgfgmfosf=549-775 m g/dL & Higher Rohd=534 mg/dL or greater Lipid Profileon 11-05-2024 CHOL:HDL 2.18 Normal [facility] Comment on above: Order Comment: 307.2 Performed By: #### L 500.4100, L506.1001 ####[facility] [address] [facility] [place], [place], [address] Cholesterol [Mass/Vol] 140 mg/dL Normal <=200 [facility] Comment on above: Order Comment: 307.2 Result Comment: Chol esterol level, Desirable <200 mg/dLBorderline high cholesterol 200-239 mg/dLHigh cholesterol >=240 mg/dLRecommendations of the NCEP Adult Treatment Panel for thefollowing risk-cutoff thresholds for the [place] Americanpopulation. Performed By: #### L 500.4100, L506.1001 ####[facility] [address] [place], [address] Cholesterol in HDL [Mass/Vol] 64 mg/dL Normal [facility] Comment on above: Order Comment: 307.2 Result Comment: Yasmin onal Cholesterol Education Program (NCEP) guidelines:<40 mg/dL: Low HDL-cholesterol (major risk factor for CHD)>= 60 mg/dL: High HDL-cholesterol (negative risk factor forCHD)HDL-cholesterol is affected by a number of factors, e.g.smoking, exercise, hormones, sex and age. Performed By: #### L 500.4100, L506.1001 ####[facility] [address] [place], [address] Cholesterol in LDL [Mass/Vol] 63 mg/dL Normal [facility] Comment on above: Order Comment: 307.2 Result Comment: Bord qwcobf=757-995 mg/dL Higher Jqbq=413 mg/dL or greater Performed By: #### L 500.4100, L506.1001 ####[facility] [address] [place], [address] Cholesterol in VLDL [Mass/Vol] 13 mg/dL Normal 5-40 [facility] Comment on above: Order Comment: 307.2 Performed By: #### L 500.4100, L506.1001 ####[facility] [address] [place], [address] Triglyceride [Mass/Vol] 63 mg/dL Normal [facility] Comment on above: Order Comment: 307.2 Result Comment: The drugs N-Acetylcysteine and Metamizole may falselydepress this assay.Normal range: <150 mg/dLBorderline High: 150-199 mg/dLHigh: 200-499 mg/dLVery High: >500 mg/dL Performed By: #### L 500.4100, L506.1001 ####[facility] [address] [place], [address] Screening total cholesterol/ high density lipoprotein (HDL) cholesterol ratioOrdered By: Carla Prather on 11-05-2024 Cholesterol.total/Choles terol in HDL [Mass ratio] 2.18 {ratio} [facility] Serum or plasma cholesterol in HDL measurement (mass/volume)Ordered By: Carla Prather on 11-05-2024 Cholesterol in HDL [Mass/Vol] 64 mg/dL >40 [facility] Comment on above: National Cholesterol Education Program (NCEP) guidelines:<40 mg/dL: Low HDL-cholesterol (major risk factor for CHD)>= 60 mg/dL: High HDL-cholesterol (negative risk factor for CHD)HDL-cholesterol is affected by a number of factors, e.g. smoking, exercise, hormones, sex and age. Serum or plasma cholesterol measurement (mass/volume)Ordered By: Carla Prather on 11-05-2024 Cholesterol [Mass/Vol] 140 mg/dL <201 [facility] Comment on above: Cholesterol level, D esirable <200 mg/dLBorderline high cholesterol 200-239 mg/dLHigh cholesterol >=240 mg/dLRecommendations of the NCEP Adult Treatment Panel for the following risk-cutoff thresholds for the [place] population. Triglycerides measurementOrd ered By: Carla Prather on 11-05-2024 Triglyceride [Mass/Vol] 63 mg/dL <199 [facility] Comment on above: The drugs N-Acetylcy steine and Metamizole may falsely depress this assay. Normal range: <150 mg/dLBorderline High: 150-199 mg/dLHigh: 200-499 mg/dLVery High: >500 mg/dL Vitamin D,25 Hydroxyon 11-05 Vitamin D 25-OH 51.2 ng/mL Normal 30-100 [facility] Comment on above: Order Comment: 307.2 Result Comment: Teri min D StatusDeficiency: <20 ng/mL (50nmol/L)Insufficiency: 20-30 ng/mL (50-75 nmol/L)Sufficiency: 30-100 ng/mL (75-250 nmol/L)Toxicity: >100 ng/mL (>250 nmol/L) Performed By: #### L 500.1570, L506.1001 ####[facility] [address] [place], [address] Lipid Profileon 11-04-2024 CHOL Normal <=200 [facility] Comment on above: Order Comment: 307-2 Result Comment: MICHOACANO ENT REFUSED-NOTFIED NURSE Performed By: #### L 500.4100 ####[facility] [address] [place], [address] CHOL:HDL Normal [facility] Comment on above: Order Comment: 307-2 Result Comment: MICHOACANO ENT REFUSED-NOTFIED NURSE Performed By: #### L 500.4100 ####[facility] [address] [place], [address] CLDL Normal [facility] Comment on above: Order Comment: 307-2 Result Comment: MICHOACANO ENT REFUSED-NOTFIED NURSE Performed By: #### L 500.4100 ####[facility] [address] [place], [address] HDL Normal [facility] Comment on above: Order Comment: 307-2 Result Comment: MICHOACANO ENT REFUSED-NOTFIED NURSE Performed By: #### L 500.4100 ####[facility] [address] [place], [address] TRIG Normal [facility] Comment on above: Order Comment: 307-2 Result Comment: MICHOACANO ENT REFUSED-NOTFIED NURSE Performed By: #### L 500.4100 ####[facility] [address] [place], [address] VLDL Normal 5-40 [facility] Comment on above: Order Comment: 307-2 Result Comment: MICHOACANO ENT REFUSED-NOTFIED NURSE Performed By: #### L 500.4100 ####[facility] [address] [place], [address] Carbamazepine (Tegretol)on 0 10-16-2024 CARBAMAZEPINE 7.1 ug/mL Normal 4.0-12.0 [facility] Comment on above: Order Comment: 300 Performed By: #### L 501.0200 ####[facility] [address], [address] Serum or plasma carbamazepin e level (mass/volume)Ordered By: Carla Prather on 10-16-2024 carBAMazepine [Mass/Vol] 7.1 ug/mL 4.0-12.0 [facility] Urine Cultureon 09-08-2024 URC Normal [facility] Comment on above: Performed By: #### M 100.2200, L400.0001 ####[facility] [address] [place], [address] Anion gap in Serum or Plasma Ordered By: Celia Toribio on 09-02-2024 Anion gap [Moles/Vol] 11 mmol/L 5-15 [facility] BUN/creatinine ratioOrdered By: Celia Toribio on 09-02-2024 Urea nitrogen/Creatinine [Mass ratio] 27.0 mg/mg High 10- [facility] Basic Metabolic Profile (BMP )on 09-02-2024 BUN/CRE 27.0 RATIO High - [facility] Comment on above: Performed By: #### L 100.0100, L500.2500 ####[facility] [address] [place], [address] Calcium [Mass/Vol] 9.2 mg/dL Normal 7.6-11.0 [facility] Comment on above: Performed By: #### L 100.0100, L500.2500 ####[facility] [address] [place], [address] Chloride [Moles/Vol] 106 mmol/L Normal 98-108 [facility] Comment on above: Performed By: #### L 100.0100, L500.2500 ####[facility] [address] [place], [address] CO2 [Moles/Vol] 20.8 mmol/L Low 21.0-32.0 [facility] Comment on above: Performed By: #### L 100.0100, L500.2500 ####[facility] [address] [place], [address] Creatinine [Mass/Vol] 1.22 mg/dL High 0.70-1.20 [facility] Comment on above: Performed By: #### L 100.0100, L500.2500 ####[facility] [address] [place], [address] ECRCL 50.54 ml/min Normal 50-250 [facility] Comment on above: Performed By: #### L 100.0100, L500.2500 ####[facility] [address] [place], [address] GAP 11 Normal 5-15 [facility] Comment on above: Performed By: #### L 100.0100, L500.2500 ####[facility] [address] [place], [address] GFR/1.73 sq M.predicted among non-blacks MDRD (S/P/Bld) [Vol rate/Area] 62 mL/min/{1.73_m2} Normal >60 [facility] Comment on above: Result Comment: mL/m in/1.73m2 CKD-EPI Creatinine Equation (2020) Performed By: #### L 100.0100, L500.2500 ####[facility] [address] [place], [address] Glucose [Mass/Vol] 99 mg/dL Normal 70-99 [facility] Comment on above: Performed By: #### L 100.0100, L500.2500 ####[facility] [address] [place], [address] Potassium [Moles/Vol] 4.0 mmol/L Normal 3.3-5.1 [facility] Comment on above: Performed By: #### L 100.0100, L500.2500 ####[facility] [address] [place], [address] Sodium [Moles/Vol] 138 mmol/L Normal 133-145 [facility] Comment on above: Performed By: #### L 100.0100, L500.2500 ####[facility] [address] [place], [address] Urea nitrogen [Mass/Vol] 33 mg/dL High 4-19 [facility] Comment on above: Performed By: #### L 100.0100, L500.2500 ####[facility] [address] [place], [address] CBC W/Diff, Automatedon 08-17 Absolute Neut Normal 2.0-7.7 [facility] Comment on above: Result Comment: Canc elled via OM: MD Ordered Performed By: #### L 100.0100, L500.2500 ####[facility] [address] [place], [address] HCT Normal 40-54 [facility] Comment on above: Result Comment: Canc elled via OM: MD Ordered Performed By: #### L 100.0100, L500.2500 ####[facility] [address] [place], [address] HGB Normal 13.0-16.5 [facility] Comment on above: Result Comment: Canc elled via OM: MD Ordered Performed By: #### L 100.0100, L500.2500 ####[facility] [address] [place], [address] MCH Normal 27.0-32.0 [facility] Comment on above: Result Comment: Canc elled via OM: MD Ordered Performed By: #### L 100.0100, L500.2500 ####[facility] [address], [address] MCHC Normal 32-36 [facility] Comment on above: Result Comment: Canc elled via OM: MD Ordered Performed By: #### L 100.0100, L500.2500 ####[facility] [address] [place], [address] MCV Normal 80-94 [facility] Comment on above: Result Comment: Canc elled via OM: MD Ordered Performed By: #### L 100.0100, L500.2500 ####[facility] [address] [place], [address] NEUT% Normal 47-70 [facility] Comment on above: Result Comment: Canc elled via OM: MD Ordered Performed By: #### L 100.0100, L500.2500 ####[facility] [address] [place], [address] PLT Normal 150-450 [facility] Comment on above: Result Comment: Canc elled via OM: MD Ordered Performed By: #### L 100.0100, L500.2500 ####[facility] [address] [place], [address] RBC Normal 4.6-6.2 [facility] Comment on above: Result Comment: Canc elled via OM: MD Ordered Performed By: #### L 100.0100, L500.2500 ####[facility] [address] [place], [address] RDW CV Normal 11.6-14.6 [facility] Comment on above: Result Comment: Canc elled via OM: MD Ordered Performed By: #### L 100.0100, L500.2500 ####[facility] [address] [place], [address] RDW SD Normal 35.1-43.9 [facility] Comment on above: Result Comment: Canc elled via OM: MD Ordered Performed By: #### L 100.0100, L500.2500 ####[facility] [address] [place], [address] WBC Normal 4.4-11.0 [facility] Comment on above: Result Comment: Canc elled via OM: Ordered Performed By: #### L 100.0100, L500.2500 ####[facility] [address] [place], [address] Carbon dioxide, total [Moles /volume] in Central venous bloodOrdered By: Celia Toribio on 09-02-2024 CO2 [Moles/Vol] 20.8 mmol/L Low 21.0-32.0 [facility] Chloride assayOrdered By: Yariel Toribio on 09-02-2024 Chloride [Moles/Vol] 106 mmol/L 98-108 [facility] Estimation of creatinine zeke aranceOrdered By: Celia Toribio on 09-02-2024 Estimated Creatinine Clearance Calc 50.54 ml/min 50-250 [facility] GFR/1.73 sq M.predicted gisella g non-blacks MDRD (S/P/Bld) [Vol rate/Area]Ordered By: Celia Toribio on 09-02-2024 Estimated GFR (MDRD) Non-Af Amer 62 >60 [facility] Comment on above: mL/min/1.73m2 CKD-EP I Creatinine Equation (2020) Glomerular filtration rate ( GFR) estimation/1.73 sq m using serum, plasma, or whole bOrdered By: Celia Toribio on 09-02-2024 GFR/1.73 sq M.predicted among non-blacks MDRD (S/P/Bld) [Vol rate/Area] 62 mL/min/{1.73_m2} >60 [facility] Comment on above: mL/min/1.73m2 CKD-EP I Creatinine Equation (2020) Potassium (Unsp spec) [Mass/ Vol]Ordered By: Celia Toribio on 09-02-2024 Potassium [Moles/Vol] 4.0 mmol/L 3.3-5.1 [facility] Potassium measurement (mass/ volume)Ordered By: Celia Toribio on 09-02-2024 Potassium (Unsp spec) [Mass/Vol] 4.0 mmol/L 3.3-5.1 [facility] Serum creatinine measurement (mass/volume)Ordered By: Celia Toribio on 09-02-2024 Creatinine [Mass/Vol] 1.22 mg/dL High 0.70-1.20 [facility] Serum glucose measurement (m ass/volume)Ordered By: Celia Toribio on 09-02-2024 Glucose [Mass/Vol] 99 mg/dL 70-99 [facility] Serum or plasma calcium luis urement (mass/volume)Ordered By: Celia Toribio on 09-02-2024 Calcium [Mass/Vol] 9.2 mg/dL 7.6-11.0 [facility] Serum or plasma urea nitroge n measurement (mass/volume)Ordered By: Celia Toribio on 09-02-2024 Urea nitrogen [Mass/Vol] 33 mg/dL High 4-19 [facility] Sodium levelOrdered By: Rigoberto Toribio on 09-02-2024 Sodium [Moles/Vol] 138 mmol/L 133-145 [facility] Absolute lymphocyte countOrd ered By: Celia Toribio on 09-01-2024 Lymphocytes Auto (Unsp spec) [#/Vol] 1.45 10*3/uL 0.83-4.51 [facility] Absolute neutrophil countOrd ered By: Celia Toribio on 09-01-2024 Neutrophils (Bld) [#/Vol] 4.9 10*3/uL 2.0-7.7 [facility] Automated lymphocyte count a s percentage of total leukocytesOrdered By: Celia Toribio on 09-01-2024 Lymphocytes/100 WBC Auto (Unsp spec) 20.9 % 19-41 [facility] Basic Metabolic Profile (BMP )on 09-01-2024 BUN/CRE 26.8 RATIO High 10-20 [facility] Comment on above: Order Comment: PT RE FUSED REPORTED TO ОЛЕГ STORY. ОЛЕГ STORY SAID SHE WOULDTRY TO DRAW. Performed By: #### L 500.2500 ####[facility] [address] [place], [address] Calcium [Mass/Vol] 9.6 mg/dL Normal 7.6-11.0 [facility] Comment on above: Order Comment: PT RE FUSED REPORTED TO ОЛЕГ STORY. ОЛЕГ STORY SAID SHE WOULDTRY TO DRAW. Performed By: #### L 500.2500 ####[facility] [address] [place], [address] Chloride [Moles/Vol] 102 mmol/L Normal 98-108 [facility] Comment on above: Order Comment: PT RE FUSED REPORTED TO RN JEZ. RN JEZ SAID SHE WOULDTRY TO DRAW. Performed By: #### L 500.2500 ####[facility] [address] [place], [address] CO2 [Moles/Vol] 21.9 mmol/L Normal 21.0-32.0 [facility] Comment on above: Order Comment: PT RE FUSED REPORTED TO ОЛЕГ STORY. RN JEZ SAID SHE WOULDTRY TO DRAW. Performed By: #### L 500.2500 ####[facility] [address] [place], [address] Creatinine [Mass/Vol] 1.44 mg/dL High 0.70-1.20 [facility] Comment on above: Order Comment: PT RE FUSED REPORTED TO RN JEZ. RN JEZ SAID SHE WOULDTRY TO DRAW. Performed By: #### L 500.2500 ####[facility] [address] [place], [address] ECRCL 42.38 ml/min Low 50-250 [facility] Comment on above: Order Comment: PT RE FUSED REPORTED TO RN JEZ. RN JEZ SAID SHE WOULDTRY TO DRAW. Performed By: #### L 500.2500 ####[facility] [address] [place], [address] GAP 13 Normal 5-15 [facility] Comment on above: Order Comment: PT RE FUSED REPORTED TO ОЛЕГ STORY. RN JEZ SAID SHE WOULDTRY TO DRAW. Performed By: #### L 500.2500 ####[facility] [address] [place], [address] GFR/1.73 sq M.predicted among non-blacks MDRD (S/P/Bld) [Vol rate/Area] 51 mL/min/{1.73_m2} Low >60 [facility] Comment on above: Order Comment: PT RE FUSED REPORTED TO ОЛЕГ STORY. RN JEZ SAID SHE WOULDTRY TO DRAW. Result Comment: mL/m in/1.73m2 CKD-EPI Creatinine Equation (2020) Performed By: #### L 500.2500 ####[facility] [address] [place], [address] Glucose [Mass/Vol] 118 mg/dL High 70-99 [facility] Comment on above: Order Comment: PT RE FUSED REPORTED TO ОЛЕГ STORY. RN JEZ SAID SHE WOULDTRY TO DRAW. Performed By: #### L 500.2500 ####[facility] [address] [facility] [address] Potassium [Moles/Vol] 4.1 mmol/L Normal 3.3-5.1 [facility] Comment on above: Order Comment: PT RE FUSED REPORTED TO ОЛЕГ STORY. ОЛЕГ STORY SAID SHE WOULDTRY TO DRAW. Performed By: #### L 500.2500 ####[facility] [address] [place], [address] Sodium [Moles/Vol] 137 mmol/L Normal 133-145 [facility] Comment on above: Order Comment: PT RE FUSED REPORTED TO ОЛЕГ STORY. ОЛЕГ STORY SAID SHE WOULDTRY TO DRAW. Performed By: #### L 500.2500 ####[facility] [address] [place], [address] Urea nitrogen [Mass/Vol] 39 mg/dL High 4-19 [facility] Comment on above: Order Comment: PT RE FUSED REPORTED TO ОЛЕГ STORY. ОЛЕГ STORY SAID SHE WOULDTRY TO DRAW. Performed By: #### L 500.2500 ####[facility] [address] [place], [address] BUN/CRE 30.2 RATIO High 10-20 [facility] Comment on above: Performed By: #### L 100.0100, L500.2500 ####[facility] [address] [place], [address] Calcium [Mass/Vol] 9.7 mg/dL Normal 7.6-11.0 [facility] Comment on above: Performed By: #### L 100.0100, L500.2500 ####[facility] [address] [place], [address] Chloride [Moles/Vol] 103 mmol/L Normal 98-108 [facility] Comment on above: Performed By: #### L 100.0100, L500.2500 ####[facility] [address] [place], [address] CO2 [Moles/Vol] 19.4 mmol/L Low 21.0-32.0 [facility] Comment on above: Performed By: #### L 100.0100, L500.2500 ####[facility] [address] [place], [address] Creatinine [Mass/Vol] 1.33 mg/dL High 0.70-1.20 [facility] Comment on above: Performed By: #### L 100.0100, L500.2500 ####[facility] [address] [place], [address] ECRCL 45.89 ml/min Low 50-250 [facility] Comment on above: Performed By: #### L 100.0100, L500.2500 ####[facility] [address] [place], [address] GAP 16 High 5-15 [facility] Comment on above: Performed By: #### L 100.0100, L500.2500 ####[facility] [address] [place], [address] GFR/1.73 sq M.predicted among non-blacks MDRD (S/P/Bld) [Vol rate/Area] 56 mL/min/{1.73_m2} Low >60 [facility] Comment on above: Result Comment: mL/m in/1.73m2 CKD-EPI Creatinine Equation (2020) Performed By: #### L 100.0100, L500.2500 ####[facility] [address] [place], [address] Glucose [Mass/Vol] 83 mg/dL Normal 70-99 [facility] Comment on above: Performed By: #### L 100.0100, L500.2500 ####[facility] [address] [place], [address] Potassium [Moles/Vol] 3.8 mmol/L Normal 3.3-5.1 [facility] Comment on above: Performed By: #### L 100.0100, L500.2500 ####[facility] [address] [place], [address] Sodium [Moles/Vol] 139 mmol/L Normal 133-145 [facility] Comment on above: Performed By: #### L 100.0100, L500.2500 ####[facility] [address] [place], [address] Urea nitrogen [Mass/Vol] 40 mg/dL High 4-19 [facility] Comment on above: Performed By: #### L 100.0100, L500.2500 ####[facility] [address] [place], [address] Basophil percentageOrdered B y: Celia Toribio on 09-01-2024 Basophils/100 WBC (Bld) 1.0 % 0-1 [facility] CBC W/Diff, Automatedon 08-17 Absolute Lymph 1.45 X10 3/uL Normal 0.83-4.51 [facility] Comment on above: Performed By: #### L 100.0100 ####[facility] [address] [place], [address] Absolute Neut 4.9 X10 3/uL Normal 2.0-7.7 [facility] Comment on above: Performed By: #### L 100.0100 ####[facility] [address] [place], [address] Basophils/100 WBC (Bld) 1.0 % Normal 0-1 [facility] Comment on above: Performed By: #### L 100.0100 ####[facility] [address] [place], [address] Eosinophils/100 WBC (Bld) 0.4 % Normal 0-5 [facility] Comment on above: Performed By: #### L 100.0100 ####[facility] [address] [place], [address] Erythrocyte distribution width (RBC) [Ratio] 13.3 % Normal 11.6-14.6 [facility] Comment on above: Performed By: #### L 100.0100 ####[facility] [address] [place], [address] Hematocrit (Bld) [Volume fraction] 43.2 % Normal 40-54 [facility] Comment on above: Performed By: #### L 100.0100 ####[facility] [address] [place], [address] Hemoglobin (Bld) [Mass/Vol] 14.1 g/dL Normal 13.0-16.5 [facility] Comment on above: Performed By: #### L 100.0100 ####[facility] [address] [place], [address] IG% 0.600 Normal 0.0-0.9 [facility] Comment on above: Result Comment: IG% - Immature Granulocytes (promyelocytes, myelocytes andmetamyelocytes) > 1% indicates that a LEFT SHIFT is Present. Performed By: #### L 100.0100 ####[facility] [address] [place], [address] Lymphocytes/100 WBC (Bld) 20.9 % Normal 19-41 [facility] Comment on above: Performed By: #### L 100.0100 ####[facility] [address] [place], [address] MCH (RBC) [Entitic mass] 31.4 pg Normal 27.0-32.0 [facility] Comment on above: Performed By: #### L 100.0100 ####[facility] [address] [place], [address] MCHC (RBC) [Mass/Vol] 32.6 g/dL Normal 32-36 [facility] Comment on above: Performed By: #### L 100.0100 ####[facility] [address] [place], [address] MCV (RBC) [Entitic vol] 96.2 fL High 80-94 [facility] Comment on above: Performed By: #### L 100.0100 ####[facility] [address] [place], [address] Monocytes/100 WBC (Bld) 6.2 % Normal 0-10 [facility] Comment on above: Performed By: #### L 100.0100 ####[facility] [address] [place], [address] Neutrophils/100 WBC (Bld) 70.9 % High 47-70 [facility] Comment on above: Performed By: #### L 100.0100 ####[facility] [address] [place], [address] Nucleated RBC (Bld) [#/Vol] 0 10*3/uL Normal 0-5 [facility] Comment on above: Performed By: #### L 100.0100 ####[facility] [address] [place], [address] Platelet mean volume (Bld) [Entitic vol] 9.5 fL Normal 6.2-12.0 [facility] Comment on above: Performed By: #### L 100.0100 ####[facility] [address] [place], [address] Platelets (Bld) [#/Vol] 367 10*3/uL Normal 150-450 [facility] Comment on above: Performed By: #### L 100.0100 ####[facility] [address] [place], [address] RBC (Bld) [#/Vol] 4.49 10*6/uL Low 4.6-6.2 [facility] Comment on above: Performed By: #### L 100.0100 ####[facility] [address] [place], [address] RDW SD 47.4 fl High 35.1-43.9 [facility] Comment on above: Performed By: #### L 100.0100 ####[facility] [address] [place], [address] WBC (Bld) [#/Vol] 6.9 10*3/uL Normal 4.4-11.0 [facility] Comment on above: Performed By: #### L 100.0100 ####[facility] [address] [place], [address] Absolute Neut Normal 2.0-7.7 [facility] Comment on above: Result Comment: Canc elled via OM: Ordered Performed By: #### L 100.0100, L500.2500 ####[facility] [address] [place], [address] HCT Normal 40-54 [facility] Comment on above: Result Comment: Canc elled via OM: MD Ordered Performed By: #### L 100.0100, L500.2500 ####[facility] [address] [place], [address] HGB Normal 13.0-16.5 [facility] Comment on above: Result Comment: Canc elled via OM: MD Ordered Performed By: #### L 100.0100, L500.2500 ####[facility] [address] [place], [address] MCH Normal 27.0-32.0 [facility] Comment on above: Result Comment: Canc elled via OM: MD Ordered Performed By: #### L 100.0100, L500.2500 ####[facility] [address] [place], [address] MCHC Normal 32-36 [facility] Comment on above: Result Comment: Canc elled via OM: MD Ordered Performed By: #### L 100.0100, L500.2500 ####[facility] [address] [place], [address] MCV Normal 80-94 [facility] Comment on above: Result Comment: Canc elled via OM: MD Ordered Performed By: #### L 100.0100, L500.2500 ####[facility] [address] [place], [address] NEUT% Normal 47-70 [facility] Comment on above: Result Comment: Canc elled via OM: MD Ordered Performed By: #### L 100.0100, L500.2500 ####[facility] [address] [place], [address] PLT Normal 150-450 [facility] Comment on above: Result Comment: Canc elled via OM: MD Ordered Performed By: #### L 100.0100, L500.2500 ####[facility] [address] [place], [address] RBC Normal 4.6-6.2 [facility] Comment on above: Result Comment: Canc elled via OM: MD Ordered Performed By: #### L 100.0100, L500.2500 ####[facility] [address] [place], [address] RDW CV Normal 11.6-14.6 [facility] Comment on above: Result Comment: Canc elled via OM: MD Ordered Performed By: #### L 100.0100, L500.2500 ####[facility] [address] [place], [address] RDW SD Normal 35.1-43.9 [facility] Comment on above: Result Comment: Canc elled via OM: MD Ordered Performed By: #### L 100.0100, L500.2500 ####[facility] [address] [place], [address] WBC Normal 4.4-11.0 [facility] Comment on above: Result Comment: Canc elled via OM: MD Ordered Performed By: #### L 100.0100, L500.2500 ####[facility] [address] [place], [address] Eosinophil percentageOrdered By: Celia Toribio on 09-01-2024 Eosinophils/100 WBC (Bld) 0.4 % 0-5 [facility] Erythrocyte distribution wid th ratioOrdered By: Celia Toribio on 09-01-2024 Erythrocyte distribution width (RBC) [Ratio] 13.3 % 11.6-14.6 [facility] Erythrocyte distribution wid th standard deviationOrdered By: Celia Toribio on 09-01-2024 Erythrocyte distribution width (RBC) [Entitic vol] 47.4 fL High 35.1-43.9 [facility] Erythrocyte distribution width (RBC) [Ratio] 47.4 fl High 35.1-43.9 [facility] Hematocrit Auto (Bld) [Volum e fraction]Ordered By: Celia Toribio on 09-01-2024 Hematocrit (Bld) [Volume fraction] 43.2 % 40-54 [facility] Hemoglobin measurementOrdere d By: Celia Toribio on 09-01-2024 Hemoglobin (Bld) [Mass/Vol] 14.1 g/dL 13.0-16.5 [facility] Immature granulocytes/100 WB C Auto (Bld)Ordered By: Celia Toribio on 09-01-2024 Immature granulocytes/100 WBC (Bld) 0.600 % 0.0-0.9 [facility] Comment on above: IG% - Immature Granu locytes (promyelocytes, myelocytes and metamyelocytes) > 1% indicates that a LEFT SHIFT is Present. Lymphocytes Auto (Unsp spec) [#/Vol]Ordered By: Celia Toribio on 09-01-2024 Lymphocytes (Bld) [#/Vol] 1.45 10*3/uL 0.83-4.51 [facility] Lymphocytes/100 WBC Auto (Un sp spec)Ordered By: Celia Toribio on 09-01-2024 Lymphocytes/100 WBC (Bld) 20.9 % 19-41 [facility] MCV (mean corpuscular volume ) determinationOrdered By: Celia Toribio on 09-01-2024 MCV (RBC) [Entitic vol] 96.2 fL High 80-94 [facility] Mean corpuscular hemoglobin (MCH) determinationOrdered By: Celia Toribio on 09-01-2024 MCH (RBC) [Entitic mass] 31.4 pg 27.0-32.0 [facility] Mean corpuscular hemoglobin concentration (MCHC) determinationOrdered By: Celia Toribio on 09-01-2024 MCHC (RBC) [Mass/Vol] 32.6 g/dL 32-36 [facility] Mean platelet volume determi nationOrdered By: Celia Toribio on 09-01-2024 Platelet mean volume (Bld) [Entitic vol] 9.5 fL 6.2-12.0 [facility] Monocyte percentageOrdered B y: Celia Toribio on 09-01-2024 Monocytes/100 WBC (Bld) 6.2 % 0-10 [facility] Neutrophil percentageOrdered By: Celia Toribio on 09-01-2024 Neutrophils/100 WBC (Bld) 70.9 % High 47-70 [facility] Nucleated red blood cell per centageOrdered By: Celia Toribio on 09-01-2024 Nucleated RBC/100 WBC (Bld) [Ratio] 0 % 0-5 [facility] Platelet countOrdered By: Yariel Toribio on 09-01-2024 Platelets (Bld) [#/Vol] 367 10*3/uL 150-450 [facility] RBC Auto (Bld) [#/Vol]Ordere d By: Celia Toribio on 09-01-2024 RBC (Bld) [#/Vol] 4.49 10*6/uL Low 4.6-6.2 [facility] White blood cell (WBC) count Ordered By: Celia Toribio on 09-01-2024 WBC (Bld) [#/Vol] 6.9 10*3/uL 4.4-11.0 [facility] Basic Metabolic Profile (BMP )on 08-31-2024 BUN/CRE 25.7 RATIO High 10-20 [facility] Comment on above: Performed By: #### L 500.2500, L100.0100 ####[facility] [address] [place], [address] Calcium [Mass/Vol] 10.0 mg/dL Normal 7.6-11.0 [facility] Comment on above: Performed By: #### L 500.2500, L100.0100 ####[facility] [address] [place], [address] Chloride [Moles/Vol] 102 mmol/L Normal 98-108 [facility] Comment on above: Performed By: #### L 500.2500, L100.0100 ####[facility] [address] [place], [address] CO2 [Moles/Vol] 21.5 mmol/L Normal 21.0-32.0 [facility] Comment on above: Performed By: #### L 500.2500, L100.0100 ####[facility] [address] [place], [address] Creatinine [Mass/Vol] 1.16 mg/dL Normal 0.70-1.20 [facility] Comment on above: Performed By: #### L 500.2500, L100.0100 ####[facility] [address] [place], [address] ECRCL 52.61 ml/min Normal 50-250 [facility] Comment on above: Performed By: #### L 500.2500, L100.0100 ####[facility] [address] [place], [address] GAP 15 Normal 5-15 [facility] Comment on above: Performed By: #### L 500.2500, L100.0100 ####[facility] [address] [place], [address] GFR/1.73 sq M.predicted among non-blacks MDRD (S/P/Bld) [Vol rate/Area] 66 mL/min/{1.73_m2} Normal >60 [facility] Comment on above: Result Comment: mL/m in/1.73m2 CKD-EPI Creatinine Equation (2020) Performed By: #### L 500.2500, L100.0100 ####[facility] [address] [place], [address] Glucose [Mass/Vol] 93 mg/dL Normal 70-99 [facility] Comment on above: Performed By: #### L 500.2500, L100.0100 ####[facility] [address] [place], [address] Potassium [Moles/Vol] 3.8 mmol/L Normal 3.3-5.1 [facility] Comment on above: Performed By: #### L 500.2500, L100.0100 ####[facility] [address] [place], [address] Sodium [Moles/Vol] 138 mmol/L Normal 133-145 [facility] Comment on above: Performed By: #### L 500.2500, L100.0100 ####[facility] [address] [place], [address] Urea nitrogen [Mass/Vol] 30 mg/dL High 4-19 [facility] Comment on above: Performed By: #### L 500.2500, L100.0100 ####[facility] [address] [place], [address] CBC W/Diff, Automatedon 08-17 Absolute Neut Normal 2.0-7.7 [facility] Comment on above: Result Comment: Canc elled via OM: MD Ordered Performed By: #### L 500.2500, L100.0100 ####[facility] [address] [place], [address] HCT Normal 40-54 [facility] Comment on above: Result Comment: Canc elled via OM: MD Ordered Performed By: #### L 500.2500, L100.0100 ####[facility] [address] [place], [address] HGB Normal 13.0-16.5 [facility] Comment on above: Result Comment: Canc elled via OM: MD Ordered Performed By: #### L 500.2500, L100.0100 ####[facility] [address] [place], [address] MCH Normal 27.0-32.0 [facility] Comment on above: Result Comment: Canc elled via OM: MD Ordered Performed By: #### L 500.2500, L100.0100 ####[facility] [address] [place], [address] MCHC Normal 32-36 [facility] Comment on above: Result Comment: Canc elled via OM: MD Ordered Performed By: #### L 500.2500, L100.0100 ####[facility] [address] [place], [address] MCV Normal 80-94 [facility] Comment on above: Result Comment: Canc elled via OM: MD Ordered Performed By: #### L 500.2500, L100.0100 ####[facility] [address] [place], [address] NEUT% Normal 47-70 [facility] Comment on above: Result Comment: Canc elled via OM: MD Ordered Performed By: #### L 500.2500, L100.0100 ####[facility] [address] [place], [address] PLT Normal 150-450 [facility] Comment on above: Result Comment: Canc elled via OM: MD Ordered Performed By: #### L 500.2500, L100.0100 ####[facility] [address] [place], [address] RBC Normal 4.6-6.2 [facility] Comment on above: Result Comment: Canc elled via OM: MD Ordered Performed By: #### L 500.2500, L100.0100 ####[facility] [address] [place], [address] RDW CV Normal 11.6-14.6 [facility] Comment on above: Result Comment: Canc elled via OM: MD Ordered Performed By: #### L 500.2500, L100.0100 ####[facility] [address] [place], [address] RDW SD Normal 35.1-43.9 [facility] Comment on above: Result Comment: Canc elled via OM: MD Ordered Performed By: #### L 500.2500, L100.0100 ####[facility] [address] [place], [address] WBC Normal 4.4-11.0 [facility] Comment on above: Result Comment: Canc elled via OM: MD Ordered Performed By: #### L 500.2500, L100.0100 ####[facility] [address] [place], [address] Basic Metabolic Profile (BMP )on 08-30-2024 BUN/CRE 21.4 RATIO High 10-20 [facility] Comment on above: Performed By: #### L 100.0100, L500.2500 ####[facility] [address] [place], [address] Calcium [Mass/Vol] 10.1 mg/dL Normal 7.6-11.0 [facility] Comment on above: Performed By: #### L 100.0100, L500.2500 ####[facility] [address] [place], [address] Chloride [Moles/Vol] 102 mmol/L Normal 98-108 [facility] Comment on above: Performed By: #### L 100.0100, L500.2500 ####[facility] [address] [place], [address] CO2 [Moles/Vol] 22.7 mmol/L Normal 21.0-32.0 [facility] Comment on above: Performed By: #### L 100.0100, L500.2500 ####[facility] [address] [place], [address] Creatinine [Mass/Vol] 1.21 mg/dL High 0.70-1.20 [facility] Comment on above: Performed By: #### L 100.0100, L500.2500 ####[facility] [address] [place], [address] ECRCL 51.03 ml/min Normal 50-250 [facility] Comment on above: Performed By: #### L 100.0100, L500.2500 ####[facility] [address] [place], [address] GAP 13 Normal 5-15 [facility] Comment on above: Performed By: #### L 100.0100, L500.2500 ####[facility] [address] [place], [address] GFR/1.73 sq M.predicted among non-blacks MDRD (S/P/Bld) [Vol rate/Area] 62 mL/min/{1.73_m2} Normal >60 [facility] Comment on above: Result Comment: mL/m in/1.73m2 CKD-EPI Creatinine Equation (2020) Performed By: #### L 100.0100, L500.2500 ####[facility] [address] [place], [address] Glucose [Mass/Vol] 94 mg/dL Normal 70-99 [facility] Comment on above: Performed By: #### L 100.0100, L500.2500 ####[facility] [address] [place], [address] Potassium [Moles/Vol] 4.2 mmol/L Normal 3.3-5.1 [facility] Comment on above: Performed By: #### L 100.0100, L500.2500 ####[facility] [address] [place], [address] Sodium [Moles/Vol] 138 mmol/L Normal 133-145 [facility] Comment on above: Performed By: #### L 100.0100, L500.2500 ####[facility] [address] [place], [address] Urea nitrogen [Mass/Vol] 26 mg/dL High 4-19 [facility] Comment on above: Performed By: #### L 100.0100, L500.2500 ####[facility] [address] [place], [address] CBC W/Diff, Automatedon 08-17 Absolute Lymph 1.00 X10 3/uL Normal 0.83-4.51 [facility] Comment on above: Performed By: #### L 100.0100, L500.2500 ####[facility] [address] [place], [address] Absolute Neut 3.7 X10 3/uL Normal 2.0-7.7 [facility] Comment on above: Performed By: #### L 100.0100, L500.2500 ####[facility] [address] [place], [address] Basophils/100 WBC (Bld) 1.6 % High 0-1 [facility] Comment on above: Performed By: #### L 100.0100, L500.2500 ####[facility] [address] [place], [address] Eosinophils/100 WBC (Bld) 7.8 % High 0-5 [facility] Comment on above: Performed By: #### L 100.0100, L500.2500 ####[facility] [id number] [place], [address] Erythrocyte distribution width (RBC) [Ratio] 13.3 % Normal 11.6-14.6 [facility] Comment on above: Performed By: #### L 100.0100, L500.2500 ####[facility] [id number] [place], [address] Hematocrit (Bld) [Volume fraction] 41.8 % Normal 40-54 [facility] Comment on above: Performed By: #### L 100.0100, L500.2500 ####[facility] [address] [place], [address] Hemoglobin (Bld) [Mass/Vol] 13.8 g/dL Normal 13.0-16.5 [facility] Comment on above: Performed By: #### L 100.0100, L500.2500 ####[facility] [id number] [place], [address] IG% 0.400 Normal 0.0-0.9 [facility] Comment on above: Result Comment: IG% - Immature Granulocytes (promyelocytes, myelocytes andmetamyelocytes) > 1% indicates that a LEFT SHIFT is Present. Performed By: #### L 100.0100, L500.2500 ####[facility] [address] [place], [address] Lymphocytes/100 WBC (Bld) 17.8 % Low 19-41 [facility] Comment on above: Performed By: #### L 100.0100, L500.2500 ####[facility] [address] [place], [address] MCH (RBC) [Entitic mass] 31.9 pg Normal 27.0-32.0 [facility] Comment on above: Performed By: #### L 100.0100, L500.2500 ####[facility] [address] [place], [address] MCHC (RBC) [Mass/Vol] 33.0 g/dL Normal 32-36 [facility] Comment on above: Performed By: #### L 100.0100, L500.2500 ####[facility] [address] [place], [address] MCV (RBC) [Entitic vol] 96.5 fL High 80-94 [facility] Comment on above: Performed By: #### L 100.0100, L500.2500 ####[facility] [address] [place], [address] Monocytes/100 WBC (Bld) 7.6 % Normal 0-10 [facility] Comment on above: Performed By: #### L 100.0100, L500.2500 ####[facility] [address] [place], [address] Neutrophils/100 WBC (Bld) 64.8 % Normal 47-70 [facility] Comment on above: Performed By: #### L 100.0100, L500.2500 ####[facility] [address] [place], [address] Nucleated RBC (Bld) [#/Vol] 0 10*3/uL Normal 0-5 [facility] Comment on above: Performed By: #### L 100.0100, L500.2500 ####[facility] [address] [place], [address] Platelet mean volume (Bld) [Entitic vol] 9.7 fL Normal 6.2-12.0 [facility] Comment on above: Performed By: #### L 100.0100, L500.2500 ####[facility] [address] [place], [address] Platelets (Bld) [#/Vol] 309 10*3/uL Normal 150-450 [facility] Comment on above: Performed By: #### L 100.0100, L500.2500 ####[facility] [address] [place], [address] RBC (Bld) [#/Vol] 4.33 10*6/uL Low 4.6-6.2 [facility] Comment on above: Performed By: #### L 100.0100, L500.2500 ####[facility] [address] [place], [address] RDW SD 47.7 fl High 35.1-43.9 [facility] Comment on above: Performed By: #### L 100.0100, L500.2500 ####[facility] [address] [place], [address] WBC (Bld) [#/Vol] 5.6 10*3/uL Normal 4.4-11.0 [facility] Comment on above: Performed By: #### L 100.0100, L500.2500 ####[facility] [address] [place], [address] Consultation - Infectious Dx on 08-30-2024 Consultation - Infectious Dx Normal [facility] Basic Metabolic Profile (BMP )on 08-29-2024 BUN/CRE 24.6 RATIO High 10-20 [facility] Comment on above: Performed By: #### L 100.0100, L500.2500 ####[facility] [address] [place], [address] Calcium [Mass/Vol] 10.0 mg/dL Normal 7.6-11.0 [facility] Comment on above: Performed By: #### L 100.0100, L500.2500 ####[facility] [address] [place], [address] Chloride [Moles/Vol] 104 mmol/L Normal 98-108 [facility] Comment on above: Performed By: #### L 100.0100, L500.2500 ####[facility] [address] [place], [address] CO2 [Moles/Vol] 22.8 mmol/L Normal 21.0-32.0 [facility] Comment on above: Performed By: #### L 100.0100, L500.2500 ####[facility] [address] [place], [address] Creatinine [Mass/Vol] 1.21 mg/dL High 0.70-1.20 [facility] Comment on above: Performed By: #### L 100.0100, L500.2500 ####[facility] [address] [place], [address] ECRCL 51.03 ml/min Normal 50-250 [facility] Comment on above: Performed By: #### L 100.0100, L500.2500 ####[facility] [address] [place], [address] GAP 14 Normal 5-15 [facility] Comment on above: Performed By: #### L 100.0100, L500.2500 ####[facility] [address] [place], [address] GFR/1.73 sq M.predicted among non-blacks MDRD (S/P/Bld) [Vol rate/Area] 62 mL/min/{1.73_m2} Normal >60 [facility] Comment on above: Result Comment: mL/m in/1.73m2 CKD-EPI Creatinine Equation (2020) Performed By: #### L 100.0100, L500.2500 ####[facility] [address] [place], [address] Glucose [Mass/Vol] 91 mg/dL Normal 70-99 [facility] Comment on above: Performed By: #### L 100.0100, L500.2500 ####[facility] [address] [place], [address] Potassium [Moles/Vol] 4.1 mmol/L Normal 3.3-5.1 [facility] Comment on above: Performed By: #### L 100.0100, L500.2500 ####[facility] [address] [place], [address] Sodium [Moles/Vol] 141 mmol/L Normal 133-145 [facility] Comment on above: Performed By: #### L 100.0100, L500.2500 ####[facility] [address] [place], [address] Urea nitrogen [Mass/Vol] 30 mg/dL High 4-19 [facility] Comment on above: Performed By: #### L 100.0100, L500.2500 ####[facility] [address] [place], [address] CBC W/Diff, Automatedon 08-17 Absolute Lymph 1.17 X10 3/uL Normal 0.83-4.51 [facility] Comment on above: Performed By: #### L 100.0100, L500.2500 ####[facility] [address] [place], [address] Absolute Neut 3.1 X10 3/uL Normal 2.0-7.7 [facility] Comment on above: Performed By: #### L 100.0100, L500.2500 ####[facility] [address] [place], [address] Basophils/100 WBC (Bld) 1.3 % High 0-1 [facility] Comment on above: Performed By: #### L 100.0100, L500.2500 ####[facility] [address] [place], [address] Eosinophils/100 WBC (Bld) 8.2 % High 0-5 [facility] Comment on above: Performed By: #### L 100.0100, L500.2500 ####[facility] [address], [address] Erythrocyte distribution width (RBC) [Ratio] 13.5 % Normal 11.6-14.6 [facility] Comment on above: Performed By: #### L 100.0100, L500.2500 ####[facility] [address] [place], [address] Hematocrit (Bld) [Volume fraction] 39.2 % Low 40-54 [facility] Comment on above: Performed By: #### L 100.0100, L500.2500 ####[facility] [address] [place], [address] Hemoglobin (Bld) [Mass/Vol] 12.8 g/dL Low 13.0-16.5 [facility] Comment on above: Performed By: #### L 100.0100, L500.2500 ####[facility] [address] [place], [address] IG% 0.400 Normal 0.0-0.9 [facility] Comment on above: Result Comment: IG% - Immature Granulocytes (promyelocytes, myelocytes andmetamyelocytes) > 1% indicates that a LEFT SHIFT is Present. Performed By: #### L 100.0100, L500.2500 ####[facility] [address] [place], [address] Lymphocytes/100 WBC (Bld) 22.3 % Normal 19-41 [facility] Comment on above: Performed By: #### L 100.0100, L500.2500 ####[facility] [address] [place], [address] MCH (RBC) [Entitic mass] 31.4 pg Normal 27.0-32.0 [facility] Comment on above: Performed By: #### L 100.0100, L500.2500 ####[facility] [address] [place], [address] MCHC (RBC) [Mass/Vol] 32.7 g/dL Normal 32-36 [facility] Comment on above: Performed By: #### L 100.0100, L500.2500 ####[facility] [address] [place], [address] MCV (RBC) [Entitic vol] 96.1 fL High 80-94 [facility] Comment on above: Performed By: #### L 100.0100, L500.2500 ####[facility] [address] [place], [address] Monocytes/100 WBC (Bld) 8.0 % Normal 0-10 [facility] Comment on above: Performed By: #### L 100.0100, L500.2500 ####[facility] [address] [place], [address] Neutrophils/100 WBC (Bld) 59.8 % Normal 47-70 [facility] Comment on above: Performed By: #### L 100.0100, L500.2500 ####[facility] [address] [place], [address] Nucleated RBC (Bld) [#/Vol] 0 10*3/uL Normal 0-5 [facility] Comment on above: Performed By: #### L 100.0100, L500.2500 ####[facility] [address] [place], [address] Platelet mean volume (Bld) [Entitic vol] 9.8 fL Normal 6.2-12.0 [facility] Comment on above: Performed By: #### L 100.0100, L500.2500 ####[facility] [address] [place], [address] Platelets (Bld) [#/Vol] 277 10*3/uL Normal 150-450 [facility] Comment on above: Performed By: #### L 100.0100, L500.2500 ####[facility] [address] [place], [address] RBC (Bld) [#/Vol] 4.08 10*6/uL Low 4.6-6.2 [facility] Comment on above: Performed By: #### L 100.0100, L500.2500 ####[facility] [address] [place], [address] RDW SD 47.8 fl High 35.1-43.9 [facility] Comment on above: Performed By: #### L 100.0100, L500.2500 ####[facility] [address] [place], [address] WBC (Bld) [#/Vol] 5.3 10*3/uL Normal 4.4-11.0 [facility] Comment on above: Performed By: #### L 100.0100, L500.2500 ####[facility] [address] [place], [address] Basic Metabolic Profile (BMP )on 08-28-2024 BUN/CRE 21.6 RATIO High 10-20 [facility] Comment on above: Performed By: #### L 100.0100, L500.2500 ####[facility] [address] [place], [address] Calcium [Mass/Vol] 9.8 mg/dL Normal 7.6-11.0 [facility] Comment on above: Performed By: #### L 100.0100, L500.2500 ####[facility] [address] [place], [address] Chloride [Moles/Vol] 105 mmol/L Normal 98-108 [facility] Comment on above: Performed By: #### L 100.0100, L500.2500 ####[facility] [address] [place], [address] CO2 [Moles/Vol] 21.9 mmol/L Normal 21.0-32.0 [facility] Comment on above: Performed By: #### L 100.0100, L500.2500 ####[facility] [address] [place], [address] Creatinine [Mass/Vol] 1.14 mg/dL Normal 0.70-1.20 [facility] Comment on above: Performed By: #### L 100.0100, L500.2500 ####[facility] [address] [place], [address] ECRCL 54.17 ml/min Normal 50-250 [facility] Comment on above: Performed By: #### L 100.0100, L500.2500 ####[facility] [address] [place], [address] GAP 13 Normal 5-15 [facility] Comment on above: Performed By: #### L 100.0100, L500.2500 ####[facility] [address] [place], [address] GFR/1.73 sq M.predicted among non-blacks MDRD (S/P/Bld) [Vol rate/Area] 67 mL/min/{1.73_m2} Normal >60 [facility] Comment on above: Result Comment: mL/m in/1.73m2 CKD-EPI Creatinine Equation (2020) Performed By: #### L 100.0100, L500.2500 ####[facility] [address] [place], [address] Glucose [Mass/Vol] 93 mg/dL Normal 70-99 [facility] Comment on above: Performed By: #### L 100.0100, L500.2500 ####[facility] [address] [place], [address] Potassium [Moles/Vol] 3.8 mmol/L Normal 3.3-5.1 [facility] Comment on above: Performed By: #### L 100.0100, L500.2500 ####[facility] [address] [place], [address] Sodium [Moles/Vol] 140 mmol/L Normal 133-145 [facility] Comment on above: Performed By: #### L 100.0100, L500.2500 ####[facility] [address] [place], [address] Urea nitrogen [Mass/Vol] 25 mg/dL High 4-19 [facility] Comment on above: Performed By: #### L 100.0100, L500.2500 ####[facility] [address] [place], [address] CBC W/Diff, Automatedon 08-17 Absolute Lymph 1.06 X10 3/uL Normal 0.83-4.51 [facility] Comment on above: Performed By: #### L 100.0100, L500.2500 ####[facility] [address] [place], [address] Absolute Neut 2.5 X10 3/uL Normal 2.0-7.7 [facility] Comment on above: Performed By: #### L 100.0100, L500.2500 ####[facility] [address] [place], [address] Basophils/100 WBC (Bld) 1.8 % High 0-1 [facility] Comment on above: Performed By: #### L 100.0100, L500.2500 ####[facility] [address] [place], [address] Eosinophils/100 WBC (Bld) 7.5 % High 0-5 [facility] Comment on above: Performed By: #### L 100.0100, L500.2500 ####[facility] [address] [place], [address] Erythrocyte distribution width (RBC) [Ratio] 13.3 % Normal 11.6-14.6 [facility] Comment on above: Performed By: #### L 100.0100, L500.2500 ####[facility] [address] [place], [address] Hematocrit (Bld) [Volume fraction] 39.0 % Low 40-54 [facility] Comment on above: Performed By: #### L 100.0100, L500.2500 ####[facility] [address] [place], [address] Hemoglobin (Bld) [Mass/Vol] 12.8 g/dL Low 13.0-16.5 [facility] Comment on above: Performed By: #### L 100.0100, L500.2500 ####[facility] [address] [place], [address] IG% 0.400 Normal 0.0-0.9 [facility] Comment on above: Result Comment: IG% - Immature Granulocytes (promyelocytes, myelocytes andmetamyelocytes) > 1% indicates that a LEFT SHIFT is Present. Performed By: #### L 100.0100, L500.2500 ####[facility] [address] [place], [address] Lymphocytes/100 WBC (Bld) 23.4 % Normal 19-41 [facility] Comment on above: Performed By: #### L 100.0100, L500.2500 ####[facility] [address] [place], [address] MCH (RBC) [Entitic mass] 31.1 pg Normal 27.0-32.0 [facility] Comment on above: Performed By: #### L 100.0100, L500.2500 ####[facility] [address] [place], [address] MCHC (RBC) [Mass/Vol] 32.8 g/dL Normal 32-36 [facility] Comment on above: Performed By: #### L 100.0100, L500.2500 ####[facility] [address] [place], [address] MCV (RBC) [Entitic vol] 94.7 fL High 80-94 [facility] Comment on above: Performed By: #### L 100.0100, L500.2500 ####[facility] [address] [place], [address] Monocytes/100 WBC (Bld) 11.3 % High 0-10 [facility] Comment on above: Performed By: #### L 100.0100, L500.2500 ####[facility] [address] [place], [address] Neutrophils/100 WBC (Bld) 55.6 % Normal 47-70 [facility] Comment on above: Performed By: #### L 100.0100, L500.2500 ####[facility] [address] [place], [address] Nucleated RBC (Bld) [#/Vol] 0 10*3/uL Normal 0-5 [facility] Comment on above: Performed By: #### L 100.0100, L500.2500 ####[facility] [address] [place], [address] Platelet mean volume (Bld) [Entitic vol] 9.8 fL Normal 6.2-12.0 [facility] Comment on above: Performed By: #### L 100.0100, L500.2500 ####[facility] [address] [place], [address] Platelets (Bld) [#/Vol] 279 10*3/uL Normal 150-450 [facility] Comment on above: Performed By: #### L 100.0100, L500.2500 ####[facility] [address] [place], [address] RBC (Bld) [#/Vol] 4.12 10*6/uL Low 4.6-6.2 [facility] Comment on above: Performed By: #### L 100.0100, L500.2500 ####[facility] [address] [place], [address] RDW SD 46.1 fl High 35.1-43.9 [facility] Comment on above: Performed By: #### L 100.0100, L500.2500 ####[facility] [address] [place], [address] WBC (Bld) [#/Vol] 4.5 10*3/uL Normal 4.4-11.0 [facility] Comment on above: Performed By: #### L 100.0100, L500.2500 ####[facility] [address] [place], [address] Basic Metabolic Profile (BMP )on 08-27-2024 BUN/CRE 17.2 RATIO Normal 10-20 [facility] Comment on above: Performed By: #### L 100.0100, L500.2500 ####[facility] [address] [place], [address] Calcium [Mass/Vol] 9.5 mg/dL Normal 7.6-11.0 [facility] Comment on above: Performed By: #### L 100.0100, L500.2500 ####[facility] [address] [place], [address] Chloride [Moles/Vol] 104 mmol/L Normal 98-108 [facility] Comment on above: Performed By: #### L 100.0100, L500.2500 ####[facility] [address] [place], [address] CO2 [Moles/Vol] 19.9 mmol/L Low 21.0-32.0 [facility] Comment on above: Performed By: #### L 100.0100, L500.2500 ####[facility] [address] [place], [address] Creatinine [Mass/Vol] 1.18 mg/dL Normal 0.70-1.20 [facility] Comment on above: Performed By: #### L 100.0100, L500.2500 ####[facility] [address] [place], [address] ECRCL 52.25 ml/min Normal 50-250 [facility] Comment on above: Performed By: #### L 100.0100, L500.2500 ####[facility] [address] [place], [address] GAP 14 Normal 5-15 [facility] Comment on above: Performed By: #### L 100.0100, L500.2500 ####[facility] [address] [place], [address] GFR/1.73 sq M.predicted among non-blacks MDRD (S/P/Bld) [Vol rate/Area] 64 mL/min/{1.73_m2} Normal >60 [facility] Comment on above: Result Comment: mL/m in/1.73m2 CKD-EPI Creatinine Equation (2020) Performed By: #### L 100.0100, L500.2500 ####[facility] [address] [place], [address] Glucose [Mass/Vol] 97 mg/dL Normal 70-99 [facility] Comment on above: Performed By: #### L 100.0100, L500.2500 ####[facility] [address] [place], [address] Potassium [Moles/Vol] 3.4 mmol/L Normal 3.3-5.1 [facility] Comment on above: Performed By: #### L 100.0100, L500.2500 ####[facility] [address] [place], [address] Sodium [Moles/Vol] 139 mmol/L Normal 133-145 [facility] Comment on above: Performed By: #### L 100.0100, L500.2500 ####[facility] [address] [place], [address] Urea nitrogen [Mass/Vol] 20 mg/dL High 4-19 [facility] Comment on above: Performed By: #### L 100.0100, L500.2500 ####[facility] [address] [place], [address] Bilirubin Test strip Ql (U)O rdered By: Cleia Toribio on 08-27-2024 Bilirubin Ql (U) Negative Negative [facility] CBC W/Diff, Automatedon 08-17 Absolute Lymph 0.95 X10 3/uL Normal 0.83-4.51 [facility] Comment on above: Performed By: #### L 100.0100, L500.2500 ####[facility] [address] [place], [address] Absolute Neut 2.3 X10 3/uL Normal 2.0-7.7 [facility] Comment on above: Performed By: #### L 100.0100, L500.2500 ####[facility] [address] [place], [address] Basophils/100 WBC (Bld) 1.2 % High 0-1 [facility] Comment on above: Performed By: #### L 100.0100, L500.2500 ####[facility] [address] [place], [address] Eosinophils/100 WBC (Bld) 6.3 % High 0-5 [facility] Comment on above: Performed By: #### L 100.0100, L500.2500 ####[facility] [address] [place], [address] Erythrocyte distribution width (RBC) [Ratio] 13.3 % Normal 11.6-14.6 [facility] Comment on above: Performed By: #### L 100.0100, L500.2500 ####[facility] [address] [place], [address] Hematocrit (Bld) [Volume fraction] 38.4 % Low 40-54 [facility] Comment on above: Performed By: #### L 100.0100, L500.2500 ####[facility] [address] [place], [address] Hemoglobin (Bld) [Mass/Vol] 12.8 g/dL Low 13.0-16.5 [facility] Comment on above: Performed By: #### L 100.0100, L500.2500 ####[facility] [address] [place], [address] IG% 0.200 Normal 0.0-0.9 [facility] Comment on above: Result Comment: IG% - Immature Granulocytes (promyelocytes, myelocytes andmetamyelocytes) > 1% indicates that a LEFT SHIFT is Present. Performed By: #### L 100.0100, L500.2500 ####[facility] [address] [place], [address] Lymphocytes/100 WBC (Bld) 23.0 % Normal 19-41 [facility] Comment on above: Performed By: #### L 100.0100, L500.2500 ####[facility] [address] [place], [address] MCH (RBC) [Entitic mass] 31.4 pg Normal 27.0-32.0 [facility] Comment on above: Performed By: #### L 100.0100, L500.2500 ####[facility] [address] [place], [address] MCHC (RBC) [Mass/Vol] 33.3 g/dL Normal 32-36 [facility] Comment on above: Performed By: #### L 100.0100, L500.2500 ####[facility] [address] [place], [address] MCV (RBC) [Entitic vol] 94.3 fL High 80-94 [facility] Comment on above: Performed By: #### L 100.0100, L500.2500 ####[facility] [address] [place], [address] Monocytes/100 WBC (Bld) 13.1 % High 0-10 [facility] Comment on above: Performed By: #### L 100.0100, L500.2500 ####[facility] [address] [place], [address] Neutrophils/100 WBC (Bld) 56.2 % Normal 47-70 [facility] Comment on above: Performed By: #### L 100.0100, L500.2500 ####[facility] [address] [place], [address] Nucleated RBC (Bld) [#/Vol] 0 10*3/uL Normal 0-5 [facility] Comment on above: Performed By: #### L 100.0100, L500.2500 ####[facility] [address] [place], [address] Platelet mean volume (Bld) [Entitic vol] 10.0 fL Normal 6.2-12.0 [facility] Comment on above: Performed By: #### L 100.0100, L500.2500 ####[facility] [address] [place], [address] Platelets (Bld) [#/Vol] 253 10*3/uL Normal 150-450 [facility] Comment on above: Performed By: #### L 100.0100, L500.2500 ####[facility] [address] [place], [address] RBC (Bld) [#/Vol] 4.07 10*6/uL Low 4.6-6.2 [facility] Comment on above: Performed By: #### L 100.0100, L500.2500 ####[facility] [address] [place], [address] RDW SD 46.1 fl High 35.1-43.9 [facility] Comment on above: Performed By: #### L 100.0100, L500.2500 ####[facility] [address] [place], [address] WBC (Bld) [#/Vol] 4.1 10*3/uL Low 4.4-11.0 [facility] Comment on above: Performed By: #### L 100.0100, L500.2500 ####[facility] [address] [place], [address] CBC-Complete Blood Cnt No Iris solares 08-27-2024 Erythrocyte distribution width (RBC) [Ratio] 13.4 % Normal 11.6-14.6 [facility] Comment on above: Performed By: #### L 100.0500 ####[facility] [address] [place], [address] Hematocrit (Bld) [Volume fraction] 40.6 % Normal 40-54 [facility] Comment on above: Performed By: #### L 100.0500 ####[facility] [address] [place], [address] Hemoglobin (Bld) [Mass/Vol] 13.5 g/dL Normal 13.0-16.5 [facility] Comment on above: Performed By: #### L 100.0500 ####[facility] [address] [place], [address] MCH (RBC) [Entitic mass] 31.5 pg Normal 27.0-32.0 [facility] Comment on above: Performed By: #### L 100.0500 ####[facility] [address] [place], [address] MCHC (RBC) [Mass/Vol] 33.3 g/dL Normal 32-36 [facility] Comment on above: Performed By: #### L 100.0500 ####[facility] [address] [place], [address] MCV (RBC) [Entitic vol] 94.6 fL High 80-94 [facility] Comment on above: Performed By: #### L 100.0500 ####[facility] [address] [place], [address] Platelet mean volume (Bld) [Entitic vol] 9.8 fL Normal 6.2-12.0 [facility] Comment on above: Performed By: #### L 100.0500 ####[facility] [address] [place], [address] Platelets (Bld) [#/Vol] 283 10*3/uL Normal 150-450 [facility] Comment on above: Performed By: #### L 100.0500 ####[facility] [address] [place], [address] RBC (Bld) [#/Vol] 4.29 10*6/uL Low 4.6-6.2 [facility] Comment on above: Performed By: #### L 100.0500 ####[facility] [address] [place], [address] RDW SD 46.0 fl High 35.1-43.9 [facility] Comment on above: Performed By: #### L 100.0500 ####[facility] [address] [place], [address] WBC (Bld) [#/Vol] 4.9 10*3/uL Normal 4.4-11.0 [facility] Comment on above: Performed By: #### L 100.0500 ####[facility] [address] [place], [address] Epithelial cells.squamous LM Ql (Urine sed)Ordered By: Celia Toribio on 08-27-2024 Epithelial cells.squamous LM.HPF (Urine sed) [#/Area] 0 /[HPF] 0-5 [facility] Glucose Ql (U)Ordered By: Yariel Toribio on 08-27-2024 Urine Glucose (UA) Normal mg/dl Normal [facility] Ketones Test strip Ql (U)Ord ered By: Celia Toribio on 08-27-2024 Ketones Ql (U) Negative Negative [facility] Microscopic analysis of urin e for red blood cells (RBC)Ordered By: Celia Toribio on 08-27-2024 Microscopic analysis of urine for red blood cells (RBC) 0 SEEN /hpf 0-5 [facility] Urine RBC 0 SEEN /hpf 0-5 [facility] Mucus LM Ql (Urine sed)Order ed By: Celia Toribio on 08-27-2024 Mucus Ql (Urine sed) 0 SEEN /hpf [facility] Nitrite Test strip Ql (U)Ord ered By: Celia Toribio on 08-27-2024 Nitrite Ql (U) Positive High Negative [facility] Protein Test strip Ql (U)Ord ered By: Celia Toribio on 08-27-2024 Protein Ql (U) 30 mg/dl High Negative [facility] Squamous epithelial cells de tection in urine sediment by light microscopyOrdered By: Celia Toribio on 08-27-2024 Epithelial cells.squamous LM Ql (Urine sed) 0-5 SEEN /hpf 0-5 [facility] Urinalysis, Completeon 08-27 BACTERIA 4+ /hpf Normal None Seen [facility] Comment on above: Order Comment: CLEAN CATCH Performed By: #### M 100.2200, L400.0001 ####[facility] [address] [place], [address] EPI,SQUAMOUS 0-5 SEEN Normal 0-5 [facility] Comment on above: Order Comment: CLEAN CATCH Performed By: #### M 100.2200, L400.0001 ####[facility] [address] [place], [address] RBC 0 SEEN Normal 0-5 [facility] Comment on above: Order Comment: CLEAN CATCH Performed By: #### M 100.2200, L400.0001 ####[facility] [address] [place], [address] WBC 25-50 SEEN Normal 0-5 [facility] Comment on above: Order Comment: CLEAN CATCH Performed By: #### M 100.2200, L400.0001 ####[facility] [address] [place], [address] Mucus Ql (Urine sed) 0 SEEN Normal [facility] Comment on above: Order Comment: CLEAN CATCH Performed By: #### M 100.2200, L400.0001 ####[facility] [address] [place], [address] Urine blood detectionOrdered By: Celia Toribio on 08-27-2024 Urine Occult Blood Negative Negative [facility] Urine clarityOrdered By: Allyson Toribio on 08-27-2024 Clarity (U) Clear Clear [facility] Urine color determinationOrd ered By: Celia Toribio on 08-27-2024 Color (U) Yellow Yellow [facility] Urine cultureOrdered By: Allyson Toribio on 08-27-2024 Bacteria identified Cx Nom (U) ESBL Escherichia coli Abnormal [facility] Urine glucose detectionOrder ed By: Celia Toribio on 08-27-2024 Glucose Ql (U) Normal mg/dl Normal [facility] Urine leukocyte esterase det ection by dipstickOrdered By: Celia Toribio on 08-27-2024 Leukocyte esterase Test strip Ql (U) 500 /ul High Negative [facility] Urine pHOrdered By: Celia rapp on 08-27-2024 pH (U) 6.0 [pH] 5.0 - 8.0 [facility] Urine sediment bacteria coun t by microscopy (number/high power field)Ordered By: Celia Toribio on 08-27-2024 Bacteria LM.HPF (Urine sed) [#/Area] 4 /[HPF] None Seen [facility] Urine specific gravity measu rementOrdered By: Celia Toribio on 08-27-2024 Specific gravity (U) [Rel density] 1.015 1.002-1.030 [facility] Urine urobilinogen measureme ntOrdered By: Celia Toribio on 08-27-2024 Urobilinogen Ql (U) Normal mg/dl Normal [facility] Urobilinogen Ql (U)Ordered B y: Celia Toribio on 08-27-2024 Urine Urobilinogen Normal mg/dl Normal [facility] White blood cell countOrdere d By: Celia Toribio on 08-27-2024 Urine WBC 25-50 SEEN /hpf 0-5 [facility] White blood cell count 25-50 SEEN /hpf 0-5 [facility] Bilirubin, totalOrdered By: Lisha Talamantes on 08-26-2024 Bilirubin [Mass/Vol] 0.25 mg/dL 0.00-1.30 [facility] CBC W/Diff, Automatedon 03- 0-2024 Absolute Lymph 0.94 X10 3/uL Normal 0.83-4.51 [facility] Comment on above: Performed By: #### L 100.0100, L500.4050, L501.5200, L501.2300 ####[facility] [address] [place], [address] Absolute Neut 2.9 X10 3/uL Normal 2.0-7.7 [facility] Comment on above: Performed By: #### L 100.0100, L500.4050, L501.5200, L501.2300 ####[facility] [address] [place], [address] Basophils/100 WBC (Bld) 1.1 % High 0-1 [facility] Comment on above: Performed By: #### L 100.0100, L500.4050, L501.5200, L501.2300 ####[facility] [address] [place], [address] Eosinophils/100 WBC (Bld) 3.4 % Normal 0-5 [facility] Comment on above: Performed By: #### L 100.0100, L500.4050, L501.5200, L501.2300 ####[facility] [address] [place], [address] Erythrocyte distribution width (RBC) [Ratio] 13.3 % Normal 11.6-14.6 [facility] Comment on above: Performed By: #### L 100.0100, L500.4050, L501.5200, L501.2300 ####[facility] [address] [place], [address] Hematocrit (Bld) [Volume fraction] 40.6 % Normal 40-54 [facility] Comment on above: Performed By: #### L 100.0100, L500.4050, L501.5200, L501.2300 ####[facility] [address] [place], [address] Hemoglobin (Bld) [Mass/Vol] 13.3 g/dL Normal 13.0-16.5 [facility] Comment on above: Performed By: #### L 100.0100, L500.4050, L501.5200, L501.2300 ####[facility] [address] [place], [address] IG% 0.200 Normal 0.0-0.9 [facility] Comment on above: Result Comment: IG% - Immature Granulocytes (promyelocytes, myelocytes andmetamyelocytes) > 1% indicates that a LEFT SHIFT is Present. Performed By: #### L 100.0100, L500.4050, L501.5200, L501.2300 ####[facility] [address] [place], [address] Lymphocytes/100 WBC (Bld) 19.8 % Normal 19-41 [facility] Comment on above: Performed By: #### L 100.0100, L500.4050, L501.5200, L501.2300 ####[facility] [address] [place], [address] MCH (RBC) [Entitic mass] 31.2 pg Normal 27.0-32.0 [facility] Comment on above: Performed By: #### L 100.0100, L500.4050, L501.5200, L501.2300 ####[facility] [address] [place], [address] MCHC (RBC) [Mass/Vol] 32.8 g/dL Normal 32-36 [facility] Comment on above: Performed By: #### L 100.0100, L500.4050, L501.5200, L501.2300 ####[facility] [address] [place], [address] MCV (RBC) [Entitic vol] 95.3 fL High 80-94 [facility] Comment on above: Performed By: #### L 100.0100, L500.4050, L501.5200, L501.2300 ####[facility] [address] [place], [address] Monocytes/100 WBC (Bld) 15.2 % High 0-10 [facility] Comment on above: Performed By: #### L 100.0100, L500.4050, L501.5200, L501.2300 ####[facility] [address] [place], [address] Neutrophils/100 WBC (Bld) 60.3 % Normal 47-70 [facility] Comment on above: Performed By: #### L 100.0100, L500.4050, L501.5200, L501.2300 ####[facility] [address] [place], [address] Nucleated RBC (Bld) [#/Vol] 0 10*3/uL Normal 0-5 [facility] Comment on above: Performed By: #### L 100.0100, L500.4050, L501.5200, L501.2300 ####[facility] [address] [place], [address] Platelet mean volume (Bld) [Entitic vol] 9.9 fL Normal 6.2-12.0 [facility] Comment on above: Performed By: #### L 100.0100, L500.4050, L501.5200, L501.2300 ####[facility] [address] [place], [address] Platelets (Bld) [#/Vol] 242 10*3/uL Normal 150-450 [facility] Comment on above: Performed By: #### L 100.0100, L500.4050, L501.5200, L501.2300 ####[facility] [address] [place], [address] RBC (Bld) [#/Vol] 4.26 10*6/uL Low 4.6-6.2 [facility] Comment on above: Performed By: #### L 100.0100, L500.4050, L501.5200, L501.2300 ####[facility] [address] [place], [address] RDW SD 46.7 fl High 35.1-43.9 [facility] Comment on above: Performed By: #### L 100.0100, L500.4050, L501.5200, L501.2300 ####[facility] [address] [place], [address] WBC (Bld) [#/Vol] 4.7 10*3/uL Normal 4.4-11.0 [facility] Comment on above: Performed By: #### L 100.0100, L500.4050, L501.5200, L501.2300 ####[facility] [address] [place], [address] COVID 19 AG RAPID (ОЛЕГ Dixon)on 08-26-2024 SARS-CoV-2 (COVID-19) RNA ALEENA+probe Ql (Unsp spec) Normal [facility] Comment on above: Performed By: #### M 100.505 ####[facility] [address] [place], [address] COVID-19 virus antigen assay Ordered By: Celia Toribio on 08-26-2024 SARS-CoV-2 (COVID-19) Ag IA.rapid Ql (Resp) [facility] Comprehensive Metabolic Prof ilon 08-26-2024 Albumin [Mass/Vol] 4.0 g/dL Normal 3.4-4.8 [facility] Comment on above: Performed By: #### L 100.0100, L500.4050, L501.5200, L501.2300 ####[facility] [address] [place], [address] Albumin/Globulin [Mass ratio] 1.4 {ratio} Normal 0.9-2.4 [facility] Comment on above: Performed By: #### L 100.0100, L500.4050, L501.5200, L501.2300 ####[facility] [address] [place], [address] ALK PHOS 67 U/L Normal 40-129 [facility] Comment on above: Performed By: #### L 100.0100, L500.4050, L501.5200, L501.2300 ####[facility] [address] [place], [address] ALT [Catalytic activity/Vol] 28 U/L Normal <=46 [facility] Comment on above: Performed By: #### L 100.0100, L500.4050, L501.5200, L501.2300 ####[facility] [address] [place], [address] AST [Catalytic activity/Vol] 23 U/L Normal <=37 [facility] Comment on above: Performed By: #### L 100.0100, L500.4050, L501.5200, L501.2300 ####[facility] [address] [place], [address] Bilirubin [Mass/Vol] 0.25 mg/dL Normal 0.00-1.30 [facility] Comment on above: Performed By: #### L 100.0100, L500.4050, L501.5200, L501.2300 ####[facility] [address] [place], [address] BUN/CRE 21.8 RATIO High 10-20 [facility] Comment on above: Performed By: #### L 100.0100, L500.4050, L501.5200, L501.2300 ####[facility] [address] [place], [address] Calcium [Mass/Vol] 9.4 mg/dL Normal 7.6-11.0 [facility] Comment on above: Performed By: #### L 100.0100, L500.4050, L501.5200, L501.2300 ####[facility] [address] [place], [address] Chloride [Moles/Vol] 105 mmol/L Normal 98-108 [facility] Comment on above: Performed By: #### L 100.0100, L500.4050, L501.5200, L501.2300 ####[facility] [address] [place], [address] CO2 [Moles/Vol] 17.6 mmol/L Low 21.0-32.0 [facility] Comment on above: Performed By: #### L 100.0100, L500.4050, L501.5200, L501.2300 ####[facility] [address] [place], [address] Creatinine [Mass/Vol] 1.04 mg/dL Normal 0.70-1.20 [facility] Comment on above: Performed By: #### L 100.0100, L500.4050, L501.5200, L501.2300 ####[facility] [address] [place], [address] ECRCL 58.77 ml/min Normal 50-250 [facility] Comment on above: Performed By: #### L 100.0100, L500.4050, L501.5200, L501.2300 ####[facility] [address] [place], [address] GAP 16 High 5-15 [facility] Comment on above: Performed By: #### L 100.0100, L500.4050, L501.5200, L501.2300 ####[facility] [address] [place], [address] GFR/1.73 sq M.predicted among non-blacks MDRD (S/P/Bld) [Vol rate/Area] 75 mL/min/{1.73_m2} Normal >60 [facility] Comment on above: Result Comment: mL/m in/1.73m2 CKD-EPI Creatinine Equation (2020) Performed By: #### L 100.0100, L500.4050, L501.5200, L501.2300 ####[facility] [address] [place], [address] Globulin (S) [Mass/Vol] 2.9 g/dL Normal 2.2-4.2 [facility] Comment on above: Performed By: #### L 100.0100, L500.4050, L501.5200, L501.2300 ####[facility] [address] [place], [address] Glucose [Mass/Vol] 88 mg/dL Normal 70-99 [facility] Comment on above: Performed By: #### L 100.0100, L500.4050, L501.5200, L501.2300 ####[facility] [address] [place], [address] Potassium [Moles/Vol] 3.6 mmol/L Normal 3.3-5.1 [facility] Comment on above: Performed By: #### L 100.0100, L500.4050, L501.5200, L501.2300 ####[facility] [address] [place], [address] Sodium [Moles/Vol] 139 mmol/L Normal 133-145 [facility] Comment on above: Performed By: #### L 100.0100, L500.4050, L501.5200, L501.2300 ####[facility] [address] [place], [address] T PROT 6.9 g/dL Normal 5.9-8.4 [facility] Comment on above: Performed By: #### L 100.0100, L500.4050, L501.5200, L501.2300 ####[facility] [address] [place], [address] Urea nitrogen [Mass/Vol] 23 mg/dL High 4-19 [facility] Comment on above: Performed By: #### L 100.0100, L500.4050, L501.5200, L501.2300 ####[facility] [address] [place], [address] Laboratory - Chemistry and C hemistry - challengeOrdered By: Lisha Talamantes on 08-26-2024 AST [Catalytic activity/Vol] 23 U/L <38 [facility] Lactic Acidon 08-26-2024 Lactate [Moles/Vol] 1.1 mmol/L Normal 0.0-2.0 [facility] Comment on above: Order Comment: Y Performed By: #### L 503.6005 ####[facility] [address] [place], [address] Lactic acid measurementOrder ed By: Celia Toribio on 08-26-2024 Lactate [Moles/Vol] 1.1 mmol/L 0.0-2.0 [facility] Magnesiumon 08-26-2024 Magnesium [Mass/Vol] 1.9 mg/dL Normal 1.5-2.2 [facility] Comment on above: Performed By: #### L 100.0100, L500.4050, L501.5200, L501.2300 ####[facility] [address] [place], [address] Magnesium (Unsp spec) [Mass/ Vol]Ordered By: Lisha Talamantes on 08-26-2024 Magnesium [Mass/Vol] 1.9 mg/dL 1.5-2.2 [facility] Magnesium measurement (mass/ volume)Ordered By: Lisha Talamantes on 08-26-2024 Magnesium (Unsp spec) [Mass/Vol] 1.9 mg/dL 1.5-2.2 [facility] No Panel InformationOrdered By: Lisha Talamantes on 08-26-2024 23 U/L <38 [facility] Phosphoruson 08-26-2024 Phosphate [Mass/Vol] 3.1 mg/dL Normal 2.7-4.5 [facility] Comment on above: Performed By: #### L 100.0100, L500.4050, L501.5200, L501.2300 ####[facility] [address] [place], [address] RESPIRATORY PANEL MOLECULARo n 08-26-2024 RP PANEL Normal [facility] Comment on above: Performed By: #### M 100.638 ####[facility] [address] [place], [address] Respiratory pathogens DNA an d RNA panel ALEENA+probe (Resp)Ordered By: Celia Toribio on 08-26-2024 Respiratory Panel (PCR) [facility] Respiratory pathogens detect ion panel by molecular detection methodOrdered By: Celia Toribio on 08-26-2024 Respiratory pathogens DNA and RNA panel ALEENA+probe (Resp) [facility] SARS-CoV-2 (COVID-19) Ag IA. rapid Ql (Resp)Ordered By: Celia Toribio on 08-26-2024 SARS-CoV-2 Antigen (Rapid) [facility] Serum globulin measurementOr dered By: Lisha Talamantes on 08-26-2024 Globulin (S) [Mass/Vol] 2.9 g/dL 2.2-4.2 [facility] Serum or plasma alanine saul otransferase (ALT) measurementOrdered By: Lisha Talamantes on 08-26-2024 ALT [Catalytic activity/Vol] 28 U/L <47 [facility] Serum or plasma albumin luis urement (mass/volume)Ordered By: Lisha Talamantes on 08-26-2024 Albumin [Mass/Vol] 4.0 g/dL 3.4-4.8 [facility] Serum or plasma albumin/glob ulin mass ratioOrdered By: Lisha Talamantes on 08-26-2024 Albumin/Globulin [Mass ratio] 1.4 {ratio} 0.9-2.4 [facility] Serum or plasma alkaline kathleen sphatase measurementOrdered By: Lisha Talamantes on 08-26-2024 ALP [Catalytic activity/Vol] 67 U/L 40-129 [facility] Serum phosphorus measurement Ordered By: Lisha Talamantes on 08-26-2024 Phosphorus Level 3.1 mg/dL 2.7-4.5 [facility] Total proteinOrdered By: Ying Talamantes on 08-26-2024 Protein [Mass/Vol] 6.9 g/dL 5.9-8.4 [facility] Absolute neutrophil countOrd ered By: Jaden Jauregui on 08-25-2024 Neutrophils (Bld) [#/Vol] 4.6 10*3/uL 2.0-7.7 [facility] Anion gap in Serum or Plasma Ordered By: Jaden Jauregui on 08-25-2024 Anion gap [Moles/Vol] 13 mmol/L 5-15 [facility] BUN/creatinine ratioOrdered By: Jaden Jauregui on 08-25-2024 Urea nitrogen/Creatinine [Mass ratio] 21.4 mg/mg High 10-20 [facility] Basophil percentageOrdered B y: Jaden Jauregui on 08-25-2024 Basophils/100 WBC (Bld) 0.8 % 0-1 [facility] Bilirubin, totalOrdered By: Jaden Jauregui on 08-25-2024 Bilirubin [Mass/Vol] 0.22 mg/dL 0.00-1.30 [facility] CBC W/Diff, Automatedon Absolute Lymph 0.61 X10 3/uL Low 0.83-4.51 [facility] Comment on above: Performed By: #### L 500.4050, L100.0100 ####[facility] [address] [place], [address] Absolute Neut 4.6 X10 3/uL Normal 2.0-7.7 [facility] Comment on above: Performed By: #### L 500.4050, L100.0100 ####[facility] [address] [place], [address] Basophils/100 WBC (Bld) 0.8 % Normal 0-1 [facility] Comment on above: Performed By: #### L 500.4050, L100.0100 ####[facility] [address] [place], [address] Eosinophils/100 WBC (Bld) 0.3 % Normal 0-5 [facility] Comment on above: Performed By: #### L 500.4050, L100.0100 ####[facility] [address] [place], [address] Erythrocyte distribution width (RBC) [Ratio] 13.2 % Normal 11.6-14.6 [facility] Comment on above: Performed By: #### L 500.4050, L100.0100 ####[facility] [address] [place], [address] Hematocrit (Bld) [Volume fraction] 43.3 % Normal 40-54 [facility] Comment on above: Performed By: #### L 500.4050, L100.0100 ####[facility] [address] [place], [address] Hemoglobin (Bld) [Mass/Vol] 14.2 g/dL Normal 13.0-16.5 [facility] Comment on above: Performed By: #### L 500.4050, L100.0100 ####[facility] [address] [place], [address] IG% 0.300 Normal 0.0-0.9 [facility] Comment on above: Result Comment: IG% - Immature Granulocytes (promyelocytes, myelocytes andmetamyelocytes) > 1% indicates that a LEFT SHIFT is Present. Performed By: #### L 500.4050, L100.0100 ####[facility] [address] [place], [address] Lymphocytes/100 WBC (Bld) 10.3 % Low 19-41 [facility] Comment on above: Performed By: #### L 500.4050, L100.0100 ####[facility] [address] [place], [address] MCH (RBC) [Entitic mass] 31.4 pg Normal 27.0-32.0 [facility] Comment on above: Performed By: #### L 500.4050, L100.0100 ####[facility] [address] [place], [address] MCHC (RBC) [Mass/Vol] 32.8 g/dL Normal 32-36 [facility] Comment on above: Performed By: #### L 500.4050, L100.0100 ####[facility] [address] [place], [address] MCV (RBC) [Entitic vol] 95.8 fL High 80-94 [facility] Comment on above: Performed By: #### L 500.4050, L100.0100 ####[facility] [address], [address] Monocytes/100 WBC (Bld) 9.9 % Normal 0-10 [facility] Comment on above: Performed By: #### L 500.4050, L100.0100 ####[facility] [address] [place], [address] Neutrophils/100 WBC (Bld) 78.4 % High 47-70 [facility] Comment on above: Performed By: #### L 500.4050, L100.0100 ####[facility] [address] [place], [address] Nucleated RBC (Bld) [#/Vol] 0 10*3/uL Normal 0-5 [facility] Comment on above: Performed By: #### L 500.4050, L100.0100 ####[facility] [address] [place], [address] Platelet mean volume (Bld) [Entitic vol] 9.5 fL Normal 6.2-12.0 [facility] Comment on above: Performed By: #### L 500.4050, L100.0100 ####[facility] [address] [place], [address] Platelets (Bld) [#/Vol] 245 10*3/uL Normal 150-450 [facility] Comment on above: Performed By: #### L 500.4050, L100.0100 ####[facility] [address] [place], [address] RBC (Bld) [#/Vol] 4.52 10*6/uL Low 4.6-6.2 [facility] Comment on above: Performed By: #### L 500.4050, L100.0100 ####[facility] [address] [place], [address] RDW SD 46.6 fl High 35.1-43.9 [facility] Comment on above: Performed By: #### L 500.4050, L100.0100 ####[facility] [address] [place], [address] WBC (Bld) [#/Vol] 5.9 10*3/uL Normal 4.4-11.0 [facility] Comment on above: Performed By: #### L 500.4050, L100.0100 ####[facility] [address] [place], [address] Carbon dioxide, total [Moles /volume] in Central venous bloodOrdered By: Jaden Jauregui on 08-25-2024 CO2 [Moles/Vol] 24.5 mmol/L 21.0-32.0 [facility] Chest 1 View (Portable)on Chest 1 View (Portable) Normal [facility] Chloride assayOrdered By: Joseph Jauregui on 08-25-2024 Chloride [Moles/Vol] 102 mmol/L 98-108 [facility] Comprehensive Metabolic Prof ilon 08-25-2024 Albumin [Mass/Vol] 4.5 g/dL Normal 3.4-4.8 [facility] Comment on above: Performed By: #### L 500.4050, L100.0100 ####[facility] [address] [place], [address] Albumin/Globulin [Mass ratio] 1.4 {ratio} Normal 0.9-2.4 [facility] Comment on above: Performed By: #### L 500.4050, L100.0100 ####[facility] [address] [place], [address] ALK PHOS 77 U/L Normal 40-129 [facility] Comment on above: Performed By: #### L 500.4050, L100.0100 ####[facility] [address] [place], [address] ALT [Catalytic activity/Vol] 32 U/L Normal <=46 [facility] [facility] Comment on above: Performed By: #### L 500.4050, L100.0100 ####[facility] [address] [place], [address] AST [Catalytic activity/Vol] 26 U/L Normal <=37 [facility] Comment on above: Performed By: #### L 500.4050, L100.0100 ####[facility] [address] [place], [address] Bilirubin [Mass/Vol] 0.22 mg/dL Normal 0.00-1.30 [facility] Comment on above: Performed By: #### L 500.4050, L100.0100 ####[facility] [address] [place], [address] BUN/CRE 21.4 RATIO High 10-20 [facility] Comment on above: Performed By: #### L 500.4050, L100.0100 ####[facility] [address] [place], [address] Calcium [Mass/Vol] 10.0 mg/dL Normal 7.6-11.0 [facility] Comment on above: Performed By: #### L 500.4050, L100.0100 ####[facility] [address] [place], [address] Chloride [Moles/Vol] 102 mmol/L Normal 98-108 [facility] Comment on above: Performed By: #### L 500.4050, L100.0100 ####[facility] [address] [place], [address] CO2 [Moles/Vol] 24.5 mmol/L Normal 21.0-32.0 [facility] Comment on above: Performed By: #### L 500.4050, L100.0100 ####[facility] [address] [place], [address] Creatinine [Mass/Vol] 1.17 mg/dL Normal 0.70-1.20 [facility] Comment on above: Performed By: #### L 500.4050, L100.0100 ####[facility] [address] [place], [address] GAP 13 Normal 5-15 [facility] Comment on above: Performed By: #### L 500.4050, L100.0100 ####[facility] [address] [place], [address] GFR/1.73 sq M.predicted among non-blacks MDRD (S/P/Bld) [Vol rate/Area] 65 mL/min/{1.73_m2} Normal >60 [facility] Comment on above: Result Comment: mL/m in/1.73m2 CKD-EPI Creatinine Equation (2020) Performed By: #### L 500.4050, L100.0100 ####[facility] [address] [place], [address] Globulin (S) [Mass/Vol] 3.2 g/dL Normal 2.2-4.2 [facility] Comment on above: Performed By: #### L 500.4050, L100.0100 ####[facility] [address] [place], [address] Glucose [Mass/Vol] 98 mg/dL Normal 70-99 [facility] Comment on above: Performed By: #### L 500.4050, L100.0100 ####[facility] [address] [place], [address] Potassium [Moles/Vol] 3.8 mmol/L Normal 3.3-5.1 [facility] Comment on above: Performed By: #### L 500.4050, L100.0100 ####[facility] [address] [place], [address] Sodium [Moles/Vol] 139 mmol/L Normal 133-145 [facility] Comment on above: Performed By: #### L 500.4050, L100.0100 ####[facility] [address] [place], [address] T PROT 7.7 g/dL Normal 5.9-8.4 [facility] Comment on above: Performed By: #### L 500.4050, L100.0100 ####[facility] [address] [place], [address] Urea nitrogen [Mass/Vol] 25 mg/dL High 4-19 [facility] Comment on above: Performed By: #### L 500.4050, L100.0100 ####[facility] [address] [place], [address] Emergency Department Summary on 08-25-2024 Emergency Department Summary Normal [facility] Eosinophil percentageOrdered By: Jaden Jaureugi on 08-25-2024 Eosinophils/100 WBC (Bld) 0.3 % 0-5 [facility] Erythrocyte distribution wid th ratioOrdered By: Jaden Jauregui on 08-25-2024 Erythrocyte distribution width (RBC) [Ratio] 13.2 % 11.6-14.6 [facility] Erythrocyte distribution wid th standard deviationOrdered By: Jaden Jauregui on 08-25-2024 Erythrocyte distribution width (RBC) [Entitic vol] 46.6 fL High 35.1-43.9 [facility] GFR/1.73 sq M.predicted gisella g non-blacks MDRD (S/P/Bld) [Vol rate/Area]Ordered By: Jaden Jauregui on 08-25-2024 Estimated GFR (MDRD) Non-Af Amer 65 >60 [facility] Comment on above: mL/min/1.73m2 CKD-EP I Creatinine Equation (2020) H AND P Exam - [facility] 08-25-2024 H&P Exam - Hospitalist Normal [facility] Hematocrit Auto (Bld) [Volum e fraction]Ordered By: Jaden Jauregui on 08-25-2024 Hematocrit (Bld) [Volume fraction] 43.3 % 40-54 [facility] Hemoglobin measurementOrdere d By: Jaden Jauregui on 08-25-2024 Hemoglobin (Bld) [Mass/Vol] 14.2 g/dL 13.0-16.5 [facility] Immature granulocytes/100 WB C Auto (Bld)Ordered By: Jaden Jauregui on 08-25-2024 Immature granulocytes/100 WBC (Bld) 0.300 % 0.0-0.9 [facility] Comment on above: IG% - Immature Granu locytes (promyelocytes, myelocytes and metamyelocytes) > 1% indicates that a LEFT SHIFT is Present. Laboratory - Chemistry and C hemistry - challengeOrdered By: Jaden Jauregui on 08-25-2024 AST [Catalytic activity/Vol] 26 U/L <38 [facility] Lymphocytes Auto (Unsp spec) [#/Vol]Ordered By: Jaden Jauregui on 08-25-2024 Lymphocytes (Bld) [#/Vol] 0.61 10*3/uL Low 0.83-4.51 [facility] Lymphocytes/100 WBC Auto (Un sp spec)Ordered By: Jaden Jauregui on 08-25-2024 Lymphocytes/100 WBC (Bld) 10.3 % Low 19-41 [facility] MCV (mean corpuscular volume ) determinationOrdered By: Jaden Jauregui on 08-25-2024 MCV (RBC) [Entitic vol] 95.8 fL High 80-94 [facility] Mean corpuscular hemoglobin (MCH) determinationOrdered By: Jaden Jauregui on 08-25-2024 MCH (RBC) [Entitic mass] 31.4 pg 27.0-32.0 [facility] Mean corpuscular hemoglobin concentration (MCHC) determinationOrdered By: Jaden Jauregui on 08-25-2024 MCHC (RBC) [Mass/Vol] 32.8 g/dL 32-36 [facility] Mean platelet volume determi nationOrdered By: Jaden Jauregui on 08-25-2024 Platelet mean volume (Bld) [Entitic vol] 9.5 fL 6.2-12.0 [facility] Monocyte percentageOrdered B y: Jaden Jauregui on 08-25-2024 Monocytes/100 WBC (Bld) 9.9 % 0-10 [facility] Neutrophil percentageOrdered By: Jaden Jauregui on 08-25-2024 Neutrophils/100 WBC (Bld) 78.4 % High 47-70 [facility] Nucleated red blood cell per centageOrdered By: Jaden Jauregui on 08-25-2024 Nucleated RBC/100 WBC (Bld) [Ratio] 0 % 0-5 [facility] Platelet countOrdered By: Joseph Jauregui on 08-25-2024 Platelets (Bld) [#/Vol] 245 10*3/uL 150-450 [facility] Potassium (Unsp spec) [Mass/ Vol]Ordered By: Jaden Jauregui on 08-25-2024 Potassium [Moles/Vol] 3.8 mmol/L 3.3-5.1 [facility] RBC Auto (Bld) [#/Vol]Ordere d By: Jaden Jauregui on 08-25-2024 RBC (Bld) [#/Vol] 4.52 10*6/uL Low 4.6-6.2 [facility] Serum creatinine measurement (mass/volume)Ordered By: Jaden Jauregui on 08-25-2024 Creatinine [Mass/Vol] 1.17 mg/dL 0.70-1.20 [facility] Serum globulin measurementOr dered By: Jaden Jauregui on 08-25-2024 Globulin (S) [Mass/Vol] 3.2 g/dL 2.2-4.2 [facility] Serum glucose measurement (m ass/volume)Ordered By: Jaden Jauregui on 08-25-2024 Glucose [Mass/Vol] 98 mg/dL 70-99 [facility] Serum or plasma alanine saul otransferase (ALT) measurementOrdered By: Jaden Jauregui on 08-25-2024 ALT [Catalytic activity/Vol] 32 U/L <47 [facility] Serum or plasma albumin luis urement (mass/volume)Ordered By: Jaden Jauregui on 08-25-2024 Albumin [Mass/Vol] 4.5 g/dL 3.4-4.8 [facility] Serum or plasma albumin/glob ulin mass ratioOrdered By: Jaden Jauregui on 08-25-2024 Albumin/Globulin [Mass ratio] 1.4 {ratio} 0.9-2.4 [facility] Serum or plasma alkaline kathleen sphatase measurementOrdered By: Jaden Jauregui on 08-25-2024 ALP [Catalytic activity/Vol] 77 U/L 40-129 [facility] Serum or plasma calcium luis urement (mass/volume)Ordered By: Jaden Jauregui on 08-25-2024 Calcium [Mass/Vol] 10.0 mg/dL 7.6-11.0 [facility] Serum or plasma urea nitroge n measurement (mass/volume)Ordered By: Jaden Jauregui on 08-25-2024 Urea nitrogen [Mass/Vol] 25 mg/dL High 4-19 [facility] Sodium levelOrdered By: Maurice Jauregui on 08-25-2024 Sodium [Moles/Vol] 139 mmol/L 133-145 [facility] Total proteinOrdered By: Rad Jauregui on 08-25-2024 Protein [Mass/Vol] 7.7 g/dL 5.9-8.4 [facility] White blood cell (WBC) count Ordered By: Jaden Jauregui on 08-25-2024 WBC (Bld) [#/Vol] 5.9 10*3/uL 4.4-11.0 [facility] 61-BN-Zyexgtk DOrdered By: Landry Prather on 07-15-2024 Vitamin D 25-Hydroxy 36.0 ng/mL [facility] Comment on above: Vitamin D 25(OH) Sta tus Range Deficiency <20 ng/mL (50nmol/L) Insufficiency 20 - 30 ng/mL (50 - 75 nmol/L) Sufficiency 30 - 100 ng/mL (75 - 250 nmol/L) Toxicity >100 ng/mL (>250 nmol/L) Absolute neutrophil countOrd ered By: Carla Prather on 07-15-2024 Neutrophils (Bld) [#/Vol] 2.7 10*3/uL 2.0-7.7 [facility] Albumin to globulin ratioOrd ered By: Carla Prather on 07-15-2024 Albumin/Globulin [Mass ratio] 1.0 {ratio} Normal 0.9-2.4 [facility] Comment on above: Order Comment: 414-2 Performed By: #### L 501.7900, L503.0105, L500.4050, L100.0100, L506.1000, L501.9985, L501.5200 ####[facility] [address] [place], [address] Basophil percentageOrdered B y: Carla Prather on 07-15-2024 Basophils/100 WBC (Bld) 1.4 % High 0-1 [facility] Bilirubin, totalOrdered By: Carla Prather on 07-15-2024 Bilirubin [Mass/Vol] 0.30 mg/dL Normal 0.20-1.00 [facility] Comment on above: For patients on eltr ombopag therapy, use of Dimension [place] TBIL is not recommended. Order Comment: 414-2 Result Comment: For patients on eltrombopag therapy, use of Dimension [place] TBIL is not recommended. Performed By: #### L 501.7900, L503.0105, L500.4050, L100.0100, L506.1000, L501.9985, L501.5200 ####[facility] [address] [place], [place], [id number] Blood urea nitrogen (BUN)/cr eatinine ratioOrdered By: Carla Prather on 07-15-2024 Urea nitrogen/Creatinine [Mass ratio] 25.4 mg/mg High 10-20 [facility] CBC W/Diff, Automatedon 06-20 Absolute Lymph 1.38 X10 3/uL Normal 0.83-4.51 [facility] Comment on above: Order Comment: 414-2 Performed By: #### L 501.7900, L503.0105, L500.4050, L100.0100, L506.1000, L501.9985, L501.5200 ####[facility] [address] [place], [place], [id number] Absolute Neut 2.7 X10 3/uL Normal 2.0-7.7 [facility] Comment on above: Order Comment: 414-2 Performed By: #### L 501.7900, L503.0105, L500.4050, L100.0100, L506.1000, L501.9985, L501.5200 ####[facility] [address] [place], [address] Basophils/100 WBC (Bld) 1.4 % High 0-1 [facility] Comment on above: Order Comment: 414-2 Performed By: #### L 501.7900, L503.0105, L500.4050, L100.0100, L506.1000, L501.9985, L501.5200 ####[facility] [address] [place], [address] Eosinophils/100 WBC (Bld) 9.4 % High 0-5 [facility] Comment on above: Order Comment: 414-2 Performed By: #### L 501.7900, L503.0105, L500.4050, L100.0100, L506.1000, L501.9985, L501.5200 ####[facility] [address] [place], [address] Erythrocyte distribution width (RBC) [Ratio] 12.8 % Normal 11.6-14.6 [facility] Comment on above: Order Comment: 414-2 Performed By: #### L 501.7900, L503.0105, L500.4050, L100.0100, L506.1000, L501.9985, L501.5200 ####[facility] [address] [place], [address] Hematocrit (Bld) [Volume fraction] 45.8 % Normal 40-54 [facility] Comment on above: Order Comment: 414-2 Performed By: #### L 501.7900, L503.0105, L500.4050, L100.0100, L506.1000, L501.9985, L501.5200 ####[facility] [address] [place], [address] Hemoglobin (Bld) [Mass/Vol] 14.8 g/dL Normal 13.0-16.5 [facility] Comment on above: Order Comment: 414-2 Performed By: #### L 501.7900, L503.0105, L500.4050, L100.0100, L506.1000, L501.9985, L501.5200 ####[facility] [address] [place], [address] IG% 0.400 Normal 0.0-0.9 [facility] Comment on above: Order Comment: 414-2 Result Comment: IG% - Immature Granulocytes (promyelocytes, myelocytes andmetamyelocytes) > 1% indicates that a LEFT SHIFT is Present. Performed By: #### L 501.7900, L503.0105, L500.4050, L100.0100, L506.1000, L501.9985, L501.5200 ####[facility] [address] [place], [address] Lymphocytes/100 WBC (Bld) 26.9 % Normal 19-41 [facility] Comment on above: Order Comment: 414-2 Performed By: #### L 501.7900, L503.0105, L500.4050, L100.0100, L506.1000, L501.9985, L501.5200 ####[facility] [address] [place], [address] MCH (RBC) [Entitic mass] 31.2 pg Normal 27.0-32.0 [facility] Comment on above: Order Comment: 414-2 Performed By: #### L 501.7900, L503.0105, L500.4050, L100.0100, L506.1000, L501.9985, L501.5200 ####[facility] [address] [place], [address] MCHC (RBC) [Mass/Vol] 32.3 g/dL Normal 32-36 [facility] Comment on above: Order Comment: 414-2 Performed By: #### L 501.7900, L503.0105, L500.4050, L100.0100, L506.1000, L501.9985, L501.5200 ####[facility] [address] [place], [address] MCV (RBC) [Entitic vol] 96.4 fL High 80-94 [facility] Comment on above: Order Comment: 414-2 Performed By: #### L 501.7900, L503.0105, L500.4050, L100.0100, L506.1000, L501.9985, L501.5200 ####[facility] [address] [place], [address] Monocytes/100 WBC (Bld) 8.8 % Normal 0-10 [facility] Comment on above: Order Comment: 414-2 Performed By: #### L 501.7900, L503.0105, L500.4050, L100.0100, L506.1000, L501.9985, L501.5200 ####[facility] [address] [place], [address] Neutrophils/100 WBC (Bld) 53.1 % Normal 47-70 [facility] Comment on above: Order Comment: 414-2 Performed By: #### L 501.7900, L503.0105, L500.4050, L100.0100, L506.1000, L501.9985, L501.5200 ####[facility] [address] [place], [address] Nucleated RBC (Bld) [#/Vol] 0 10*3/uL Normal 0-5 [facility] Comment on above: Order Comment: 414-2 Performed By: #### L 501.7900, L503.0105, L500.4050, L100.0100, L506.1000, L501.9985, L501.5200 ####[facility] [address] [place], [address] Platelet mean volume (Bld) [Entitic vol] 9.6 fL Normal 6.2-12.0 [facility] Comment on above: Order Comment: 414-2 Performed By: #### L 501.7900, L503.0105, L500.4050, L100.0100, L506.1000, L501.9985, L501.5200 ####[facility] [address] [place], [address] Platelets (Bld) [#/Vol] 295 10*3/uL Normal 150-450 [facility] Comment on above: Order Comment: 414-2 Performed By: #### L 501.7900, L503.0105, L500.4050, L100.0100, L506.1000, L501.9985, L501.5200 ####[facility] [address] [place], [address] RBC (Bld) [#/Vol] 4.75 10*6/uL Normal 4.6-6.2 [facility] Comment on above: Order Comment: 414-2 Performed By: #### L 501.7900, L503.0105, L500.4050, L100.0100, L506.1000, L501.9985, L501.5200 ####[facility] [address] [place], [address] RDW SD 45.4 fl High 35.1-43.9 [facility] Comment on above: Order Comment: 414-2 Performed By: #### L 501.7900, L503.0105, L500.4050, L100.0100, L506.1000, L501.9985, L501.5200 ####[facility] [address] [place], [address] WBC (Bld) [#/Vol] 5.1 10*3/uL Normal 4.4-11.0 [facility] Comment on above: Order Comment: 414-2 Performed By: #### L 501.7900, L503.0105, L500.4050, L100.0100, L506.1000, L501.9985, L501.5200 ####[facility] [address] [place], [address] Carbamazepine (Tegretol)on 0 07-15-2024 CARBAMAZEPINE 7.0 ug/mL Normal 4.0-12.0 [facility] Comment on above: Order Comment: 414-2 Performed By: #### L 501.7900, L503.0105, L500.4050, L100.0100, L506.1000, L501.9985, L501.5200 ####[facility] [address] [place], [place], [id number] Carbon dioxide measurementOr dered By: Carla Prather on 07-15-2024 CO2 [Moles/Vol] 24.0 mmol/L Normal 21.0-32.0 [facility] Comment on above: Order Comment: 414-2 Performed By: #### L 501.7900, L503.0105, L500.4050, L100.0100, L506.1000, L501.9985, L501.5200 ####[facility] [address] [place], [place], [id number] Chloride measurementOrdered By: Carla Prather on 07-15-2024 Chloride [Moles/Vol] 107 mmol/L Normal 98-107 [facility] Comment on above: Order Comment: 414-2 Performed By: #### L 501.7900, L503.0105, L500.4050, L100.0100, L506.1000, L501.9985, L501.5200 ####[facility] [address] [place], [place], [id number] Comprehensive Metabolic Prof ilon 07-15-2024 ALK P 70 U/L Normal 45-117 [facility] Comment on above: Order Comment: 414-2 Performed By: #### L 501.7900, L503.0105, L500.4050, L100.0100, L506.1000, L501.9985, L501.5200 ####[facility] [address] [place], [place], [id number] BUN/CRE 25.4 RATIO High 10-20 [facility] Comment on above: Order Comment: 414-2 Performed By: #### L 501.7900, L503.0105, L500.4050, L100.0100, L506.1000, L501.9985, L501.5200 ####[facility] [address] [place], [address] CA,Total 10.1 mg/dL Normal 8.5-10.1 [facility] Comment on above: Order Comment: 414-2 Performed By: #### L 501.7900, L503.0105, L500.4050, L100.0100, L506.1000, L501.9985, L501.5200 ####[facility] [address] [place], [address] EST GFR - AA 77 mL/min Normal >60 [facility] Comment on above: Order Comment: 414-2 Result Comment: Afri can [place]uran GFR Calc Performed By: #### L 501.7900, L503.0105, L500.4050, L100.0100, L506.1000, L501.9985, L501.5200 ####[facility] [address] [place], [address] GAP 7 Normal 5-15 [facility] Comment on above: Order Comment: 414-2 Performed By: #### L 501.7900, L503.0105, L500.4050, L100.0100, L506.1000, L501.9985, L501.5200 ####[facility] [address] [place], [address] GFR/1.73 sq M.predicted among non-blacks MDRD (S/P/Bld) [Vol rate/Area] 64 mL/min/{1.73_m2} Normal >60 [facility] Comment on above: Order Comment: 414-2 Result Comment: Non- GFR Calc Performed By: #### L 501.7900, L503.0105, L500.4050, L100.0100, L506.1000, L501.9985, L501.5200 ####[facility] [address] [place], [place], [address] T PROT 8.0 g/dL Normal 6.4-8.2 [facility] Comment on above: Order Comment: 414-2 Performed By: #### L 501.7900, L503.0105, L500.4050, L100.0100, L506.1000, L501.9985, L501.5200 ####[facility] [address] [place], [address] Comprehensive Metabolic Prof ilOrdered By: Carla Prather on 07-15-2024 AST [Catalytic activity/Vol] 23 U/L Normal 15-37 [facility] Comment on above: Order Comment: 414-2 Performed By: #### L 501.7900, L503.0105, L500.4050, L100.0100, L506.1000, L501.9985, L501.5200 ####[facility] [address] [place], [place], [id number] Eosinophil percentageOrdered By: Carla Prather on 07-15-2024 Eosinophils/100 WBC (Bld) 9.4 % High 0-5 [facility] Erythrocyte distribution wid th ratioOrdered By: Carla Prather on 07-15-2024 Erythrocyte distribution width (RBC) [Ratio] 12.8 % 11.6-14.6 [facility] Erythrocyte distribution wid th standard deviationOrdered By: Carla Prather on 07-15-2024 Erythrocyte distribution width (RBC) [Entitic vol] 45.4 fL High 35.1-43.9 [facility] Estimated glomerular filtrat ion rate (GFR) AmericanOrdered By: Carla Prather on 07-15-2024 Estimated GFR (MDRD) Amer 77 mL/min >60 [facility] Comment on above: GFR Calc Glomerular filtration rate ( GFR) estimationOrdered By: Carla Prather on 07-15-2024 Estimated GFR (MDRD) Non-Af Amer 64 mL/min >60 [facility] Comment on above: Non- GFR Calc Glucose measurementOrdered B y: Carla Prather on 07-15-2024 Glucose [Mass/Vol] 103 mg/dL Normal 74-106 [facility] Comment on above: Fasting Glucose resu lt from 100 to 125 mg/dL suggests IMPAIRED HOMEOSTASIS per A.D.A. criteria. Order Comment: 414-2 Result Comment: Fast ing Glucose result from 100 to 125 mg/dLsuggests IMPAIRED HOMEOSTASIS per A.D.A. criteria. Performed By: #### L 501.7900, L503.0105, L500.4050, L100.0100, L506.1000, L501.9985, L501.5200 ####[facility] [address] [place], [place], [id number] Hematocrit Auto (Bld) [Volum e fraction]Ordered By: Carla Prather on 07-15-2024 Hematocrit (Bld) [Volume fraction] 45.8 % 40-54 [facility] Hemoglobin A1con 07-15-2024 HbA1c (Bld) [Mass fraction] 5.6 % Normal 3.8-5.6 [facility] Comment on above: Order Comment: 414-2 Result Comment: Norm al < 5.7 % Prediabetic 5.7 - 6.4 % Diabetic >or= 6.5 % Please note range changes. Performed By: #### L 501.7900, L503.0105, L500.4050, L100.0100, L506.1000, L501.9985, L501.5200 ####[facility] [address] [place], [place], [id number] Hemoglobin A1c percentageOrd ered By: Carla Prather on 07-15-2024 HbA1c (Bld) [Mass fraction] 5.6 % 3.8-5.6 [facility] Comment on above: Normal < 5.7 % Predi abetic 5.7 - 6.4 % Diabetic >or= 6.5 % Please note range changes. Hemoglobin measurementOrdere d By: Carla Prather on 07-15-2024 Hemoglobin (Bld) [Mass/Vol] 14.8 g/dL 13.0-16.5 [facility] Immature granulocytes/100 WB C Auto (Bld)Ordered By: Carla Prather on 07-15-2024 Immature granulocytes/100 WBC (Bld) 0.400 % 0.0-0.9 [facility] Comment on above: IG% - Immature Granu locytes (promyelocytes, myelocytes and metamyelocytes) > 1% indicates that a LEFT SHIFT is Present. Lymphocytes Auto (Unsp spec) [#/Vol]Ordered By: Carla Prather on 07-15-2024 Lymphocytes (Bld) [#/Vol] 1.38 10*3/uL 0.83-4.51 [facility] Lymphocytes/100 WBC Auto (Un sp spec)Ordered By: Carla Prather on 07-15-2024 Lymphocytes/100 WBC (Bld) 26.9 % 19-41 [facility] MCV (mean corpuscular volume ) determinationOrdered By: Carla Prather on 07-15-2024 MCV (RBC) [Entitic vol] 96.4 fL High 80-94 [facility] Magnesium measurementOrdered By: Carla Prather on 07-15-2024 Magnesium [Mass/Vol] 2.1 mg/dL Normal 1.6-2.6 [facility] Comment on above: Order Comment: 414-2 Performed By: #### L 501.7900, L503.0105, L500.4050, L100.0100, L506.1000, L501.9985, L501.5200 ####[facility] [id number] [place], [address] Mean corpuscular hemoglobin (MCH) determinationOrdered By: Carla Prather on 07-15-2024 MCH (RBC) [Entitic mass] 31.2 pg 27.0-32.0 [facility] Mean corpuscular hemoglobin concentration (MCHC) determinationOrdered By: Carla Prather on 07-15-2024 MCHC (RBC) [Mass/Vol] 32.3 g/dL 32-36 [facility] Mean platelet volume determi nationOrdered By: Carla Prather on 07-15-2024 Platelet mean volume (Bld) [Entitic vol] 9.6 fL 6.2-12.0 [facility] Monocyte percentageOrdered B y: Carla Prather on 07-15-2024 Monocytes/100 WBC (Bld) 8.8 % 0-10 [facility] Neutrophil percentageOrdered By: Carla Prather on 07-15-2024 Neutrophils/100 WBC (Bld) 53.1 % 47-70 [facility] Nucleated red blood cell per centageOrdered By: Carla Prather on 07-15-2024 Nucleated RBC/100 WBC (Bld) [Ratio] 0 % 0-5 [facility] Platelet countOrdered By: Wilfredo Prather on 07-15-2024 Platelets (Bld) [#/Vol] 295 10*3/uL 150-450 [facility] Potassium measurementOrdered By: Carla Prather on 07-15-2024 Potassium [Moles/Vol] 3.8 mmol/L Normal 3.5-5.1 [facility] Comment on above: Order Comment: 414-2 Performed By: #### L 501.7900, L503.0105, L500.4050, L100.0100, L506.1000, L501.9985, L501.5200 ####[facility] [id number] [place], [address] RBC Auto (Bld) [#/Vol]Ordere d By: Carla Prather on 07-15-2024 RBC (Bld) [#/Vol] 4.75 10*6/uL 4.6-6.2 [facility] Serum anion gap measurementO rdered By: Carla Prather on 07-15-2024 Anion gap [Moles/Vol] 7 mmol/L 5-15 [facility] Serum globulin measurementOr dered By: Carla Prather on 07-15-2024 Globulin (S) [Mass/Vol] 4.1 g/dL Normal 2.2-4.2 [facility] Comment on above: Order Comment: 414-2 Performed By: #### L 501.7900, L503.0105, L500.4050, L100.0100, L506.1000, L501.9985, L501.5200 ####[facility] [address] [place], [place], [id number] Serum or plasma alanine saul otransferase (ALT) measurementOrdered By: Carla Prather on 07-15-2024 ALT [Catalytic activity/Vol] 37 U/L Normal 16-61 [facility] Comment on above: Order Comment: 414-2 Performed By: #### L 501.7900, L503.0105, L500.4050, L100.0100, L506.1000, L501.9985, L501.5200 ####[facility] [address] [place], [place], [id number] Serum or plasma albumin luis urement (mass/volume)Ordered By: Carla Prather on 07-15-2024 Albumin [Mass/Vol] 3.9 g/dL Normal 3.2-5.0 [facility] Comment on above: Order Comment: 414-2 Performed By: #### L 501.7900, L503.0105, L500.4050, L100.0100, L506.1000, L501.9985, L501.5200 ####[facility] [address] [place], [place], [id number] Serum or plasma alkaline kathleen sphatase measurementOrdered By: Carla Prather on 07-15-2024 ALP [Catalytic activity/Vol] 70 U/L 45-117 [facility] Serum or plasma calcium luis urement (mass/volume)Ordered By: Carla Prather on 07-15-2024 Calcium [Mass/Vol] 10.1 mg/dL 8.5-10.1 [facility] Serum or plasma creatinine m easurement (mass/volume)Ordered By: Carla Prather on 07-15-2024 Creatinine [Mass/Vol] 1.18 mg/dL Normal 0.70-1.30 [facility] Comment on above: The validity of the calculated GFR & GFRAA in patients over 70 years has not been determined. Clinical correlation is essential. Order Comment: 414-2 Result Comment: The validity of the calculated GFR GFRAA in patients over70 years has not been determined. Clinical correlation isessential. Performed By: #### L 501.7900, L503.0105, L500.4050, L100.0100, L506.1000, L501.9985, L501.5200 ####[facility] [address] [place], [place], [phone] Serum or plasma urea nitroge n measurement (mass/volume)Ordered By: Carla Prather on 07-15-2024 Urea nitrogen [Mass/Vol] 30 mg/dL High 7-18 [facility] Comment on above: Order Comment: 414-2 Performed By: #### L 501.7900, L503.0105, L500.4050, L100.0100, L506.1000, L501.9985, L501.5200 ####[facility] [address] [place], [place], [id number] Sodium levelOrdered By: Luca Prather on 07-15-2024 Sodium [Moles/Vol] 138 mmol/L Normal 136-145 [facility] Comment on above: Order Comment: 414-2 Performed By: #### L 501.7900, L503.0105, L500.4050, L100.0100, L506.1000, L501.9985, L501.5200 ####[facility] [address] [place], [place], [id number] Total proteinOrdered By: Ming Prather on 07-15-2024 Protein [Mass/Vol] 8.0 g/dL 6.4-8.2 [facility] Vitamin B12on 07-15-2024 Cobalamin (Vitamin B12) [Mass/Vol] 692 pg/mL Normal 211-911 [facility] Comment on above: Order Comment: 414-2 Performed By: #### L 501.7900, L503.0105, L500.4050, L100.0100, L506.1000, L501.9985, L501.5200 ####[facility] [address] [place], [address] Vitamin B12 measurementOrder ed By: Carla Prather on 07-15-2024 Cobalamin (Vitamin B12) [Mass/Vol] 692 pg/mL [facility] Vitamin D,25 Hydroxyon 07-15 Vitamin D 25-OH 36.0 ng/mL Normal [facility] Comment on above: Order Comment: 414-2 Result Comment: Teri min D 25(OH) Status Range Deficiency <20 ng/mL (50nmol/L) Insufficiency 20 - 30 ng/mL (50 - 75 nmol/L) Sufficiency 30 - 100 ng/mL (75 - 250 nmol/L) Toxicity >100 ng/mL (>250 nmol/L) Performed By: #### L 501.7900, L503.0105, L500.4050, L100.0100, L506.1000, L501.9985, L501.5200 ####[facility] [address] [place], [address] White blood cell (WBC) count Ordered By: Carla Prather on 07-15-2024 WBC (Bld) [#/Vol] 5.1 10*3/uL 4.4-11.0 [facility] carBAMazepine [Mass/Vol]Orde red By: Carla Prather on 07-15-2024 Carbamazepine (Tegretol) Level 7.0 ug/mL 4.0-12.0 [facility] Basic Metabolic Profile (BMP )on 04-15-2024 BUN Normal 7-18 [facility] Comment on above: Result Comment: Canc elled via OM: Order cancelled - Patient discharged Performed By: #### L 100.0100, L500.2500 ####[facility] [address] [place], [address] BUN/CRE Normal 10-20 [facility] Comment on above: Result Comment: Canc elled via OM: Order cancelled - Patient discharged Performed By: #### L 100.0100, L500.2500 ####[facility] [address], [address] CA,Total Normal 8.5-10.1 [facility] Comment on above: Result Comment: Canc elled via OM: Order cancelled - Patient discharged Performed By: #### L 100.0100, L500.2500 ####[facility] [address] [place], [address] CL Normal 98-107 [facility] Comment on above: Result Comment: Canc elled via OM: Order cancelled - Patient discharged Performed By: #### L 100.0100, L500.2500 ####[facility] [address] [place], [address] CO2 Normal 21.0-32.0 [facility] Comment on above: Result Comment: Canc elled via OM: Order cancelled - Patient discharged Performed By: #### L 100.0100, L500.2500 ####[facility] [address] [place], [address] CREAT,SERUM Normal 0.70-1.30 [facility] Comment on above: Result Comment: Canc elled via OM: Order cancelled - Patient discharged Performed By: #### L 100.0100, L500.2500 ####[facility] [address] [place], [address] EST GFR Normal >60 [facility] Comment on above: Result Comment: Canc elled via OM: Order cancelled - Patient discharged Performed By: #### L 100.0100, L500.2500 ####[facility] [address] [place], [address] EST GFR - AA Normal >60 [facility] Comment on above: Result Comment: Canc elled via OM: Order cancelled - Patient discharged Performed By: #### L 100.0100, L500.2500 ####[facility] [address] [place], [address] GAP Normal 5-15 [facility] Comment on above: Result Comment: Canc elled via OM: Order cancelled - Patient discharged Performed By: #### L 100.0100, L500.2500 ####[facility] [address] [place], [address] GLU Normal 74-106 [facility] Comment on above: Result Comment: Canc elled via OM: Order cancelled - Patient discharged Performed By: #### L 100.0100, L500.2500 ####[facility] [address] [place], [address] Potassium Normal 3.5-5.1 [facility] Comment on above: Result Comment: Canc elled via OM: Order cancelled - Patient discharged Performed By: #### L 100.0100, L500.2500 ####[facility] [address] [place], [address] Basic Metabolic Profile (BMP) Normal 136-145 [facility] Comment on above: Result Comment: Canc elled via OM: Order cancelled - Patient discharged Performed By: #### L 100.0100, L500.2500 ####[facility] [address] [place], [address] CBC W/Diff, Automatedon 10-2 Absolute Neut Normal 2.0-7.7 [facility] Comment on above: Result Comment: Canc elled via OM: Order cancelled - Patient discharged Performed By: #### L 100.0100, L500.2500 ####[facility] [address] [place], [address] HCT Normal 40-54 [facility] Comment on above: Result Comment: Canc elled via OM: Order cancelled - Patient discharged Performed By: #### L 100.0100, L500.2500 ####[facility] [address] [place], [address] HGB Normal 13.0-16.5 [facility] Comment on above: Result Comment: Canc elled via OM: Order cancelled - Patient discharged Performed By: #### L 100.0100, L500.2500 ####[facility] [address] [place], [address] MCH Normal 27.0-32.0 [facility] Comment on above: Result Comment: Canc elled via OM: Order cancelled - Patient discharged Performed By: #### L 100.0100, L500.2500 ####[facility] [address] [place], [address] MCHC Normal 32-36 [facility] Comment on above: Result Comment: Canc elled via OM: Order cancelled - Patient discharged Performed By: #### L 100.0100, L500.2500 ####[facility] [address] [place], [address] MCV Normal 80-94 [facility] Comment on above: Result Comment: Canc elled via OM: Order cancelled - Patient discharged Performed By: #### L 100.0100, L500.2500 ####[facility] [address] [place], [address] NEUT% Normal 47-70 [facility] Comment on above: Result Comment: Canc elled via OM: Order cancelled - Patient discharged Performed By: #### L 100.0100, L500.2500 ####[facility] [address] [place], [address] PLT Normal 150-450 [facility] Comment on above: Result Comment: Canc elled via OM: Order cancelled - Patient discharged Performed By: #### L 100.0100, L500.2500 ####[facility] [address] [place], [address] RBC Normal 4.6-6.2 [facility] Comment on above: Result Comment: Canc elled via OM: Order cancelled - Patient discharged Performed By: #### L 100.0100, L500.2500 ####[facility] [address] [place], [address] RDW CV Normal 11.6-14.6 [facility] Comment on above: Result Comment: Canc elled via OM: Order cancelled - Patient discharged Performed By: #### L 100.0100, L500.2500 ####[facility] [address] [place], [address] RDW SD Normal 35.1-43.9 [facility] Comment on above: Result Comment: Canc elled via OM: Order cancelled - Patient discharged Performed By: #### L 100.0100, L500.2500 ####[facility] [address] [place], [address] WBC Normal 4.4-11.0 [facility] Comment on above: Result Comment: Canc elled via OM: Order cancelled - Patient discharged Performed By: #### L 100.0100, L500.2500 ####[facility] [address] [place], [address] Basic Metabolic Profile (BMP )on 04-14-2024 BUN Normal 7-18 [facility] Comment on above: Result Comment: Canc elled via OM: Order cancelled - Patient discharged Performed By: #### L 100.0100, L500.2500 ####[facility] [address] [place], [address] BUN/CRE Normal 10-20 [facility] Comment on above: Result Comment: Canc elled via OM: Order cancelled - Patient discharged Performed By: #### L 100.0100, L500.2500 ####[facility] [address] [place], [address] CA,Total Normal 8.5-10.1 [facility] Comment on above: Result Comment: Canc elled via OM: Order cancelled - Patient discharged Performed By: #### L 100.0100, L500.2500 ####[facility] [address] [place], [address] CL Normal 98-107 [facility] Comment on above: Result Comment: Canc elled via OM: Order cancelled - Patient discharged Performed By: #### L 100.0100, L500.2500 ####[facility] [address] [place], [address] CO2 Normal 21.0-32.0 [facility] Comment on above: Result Comment: Canc elled via OM: Order cancelled - Patient discharged Performed By: #### L 100.0100, L500.2500 ####[facility] [address] [place], [address] CREAT,SERUM Normal 0.70-1.30 [facility] Comment on above: Result Comment: Canc elled via OM: Order cancelled - Patient discharged Performed By: #### L 100.0100, L500.2500 ####[facility] [address] [place], [address] EST GFR Normal >60 [facility] Comment on above: Result Comment: Canc elled via OM: Order cancelled - Patient discharged Performed By: #### L 100.0100, L500.2500 ####[facility] [address] [place], [address] EST GFR - AA Normal >60 [facility] Comment on above: Result Comment: Canc elled via OM: Order cancelled - Patient discharged Performed By: #### L 100.0100, L500.2500 ####[facility] [address] [place], [address] GAP Normal 5-15 [facility] Comment on above: Result Comment: Canc elled via OM: Order cancelled - Patient discharged Performed By: #### L 100.0100, L500.2500 ####[facility] [address], [address] GLU Normal 74-106 [facility] Comment on above: Result Comment: Canc elled via OM: Order cancelled - Patient discharged Performed By: #### L 100.0100, L500.2500 ####[facility] [address], [address] Potassium Normal 3.5-5.1 [facility] Comment on above: Result Comment: Canc elled via OM: Order cancelled - Patient discharged Performed By: #### L 100.0100, L500.2500 ####[facility] [address], [address] Basic Metabolic Profile (BMP) Normal 136-145 [facility] Comment on above: Result Comment: Canc elled via OM: Order cancelled - Patient discharged Performed By: #### L 100.0100, L500.2500 ####[facility] [address] [place], [address] CBC W/Diff, Automatedon 10-2 -2023 Absolute Neut Normal 2.0-7.7 [facility] Comment on above: Result Comment: Canc elled via OM: Order cancelled - Patient discharged Performed By: #### L 100.0100, L500.2500 ####[facility] [address] [place], [address] HCT Normal 40-54 [facility] Comment on above: Result Comment: Canc elled via OM: Order cancelled - Patient discharged Performed By: #### L 100.0100, L500.2500 ####[facility] [address] [place], [address] HGB Normal 13.0-16.5 [facility] Comment on above: Result Comment: Canc elled via OM: Order cancelled - Patient discharged Performed By: #### L 100.0100, L500.2500 ####[facility] [address] [place], [address] MCH Normal 27.0-32.0 [facility] Comment on above: Result Comment: Canc elled via OM: Order cancelled - Patient discharged Performed By: #### L 100.0100, L500.2500 ####[facility] [address] [place], [address] MCHC Normal 32-36 [facility] Comment on above: Result Comment: Canc elled via OM: Order cancelled - Patient discharged Performed By: #### L 100.0100, L500.2500 ####[facility] [address] [place], [address] MCV Normal 80-94 [facility] Comment on above: Result Comment: Canc elled via OM: Order cancelled - Patient discharged Performed By: #### L 100.0100, L500.2500 ####[facility] [address] [place], [address] NEUT% Normal 47-70 [facility] Comment on above: Result Comment: Canc elled via OM: Order cancelled - Patient discharged Performed By: #### L 100.0100, L500.2500 ####[facility] [address] [place], [address] PLT Normal 150-450 [facility] Comment on above: Result Comment: Canc elled via OM: Order cancelled - Patient discharged Performed By: #### L 100.0100, L500.2500 ####[facility] [address] [place], [address] RBC Normal 4.6-6.2 [facility] Comment on above: Result Comment: Canc elled via OM: Order cancelled - Patient discharged Performed By: #### L 100.0100, L500.2500 ####[facility] [address] [place], [address] RDW CV Normal 11.6-14.6 [facility] Comment on above: Result Comment: Canc elled via OM: Order cancelled - Patient discharged Performed By: #### L 100.0100, L500.2500 ####[facility] [address] [place], [address] RDW SD Normal 35.1-43.9 [facility] Comment on above: Result Comment: Canc elled via OM: Order cancelled - Patient discharged Performed By: #### L 100.0100, L500.2500 ####[facility] [address] [place], [address] WBC Normal 4.4-11.0 [facility] Comment on above: Result Comment: Canc elled via OM: Order cancelled - Patient discharged Performed By: #### L 100.0100, L500.2500 ####[facility] [address] [place], [address] Basic Metabolic Profile (BMP )on 04-13-2024 BUN Normal 7-18 [facility] Comment on above: Result Comment: Canc elled via OM: Order cancelled - Patient discharged Performed By: #### L 100.0100, L500.2500 ####[facility] [address] [place], [address] BUN/CRE Normal 10-20 [facility] Comment on above: Result Comment: Canc elled via OM: Order cancelled - Patient discharged Performed By: #### L 100.0100, L500.2500 ####[facility] [address] [place], [address] CA,Total Normal 8.5-10.1 [facility] Comment on above: Result Comment: Canc elled via OM: Order cancelled - Patient discharged Performed By: #### L 100.0100, L500.2500 ####[facility] [address] [place], [address] CL Normal 98-107 [facility] Comment on above: Result Comment: Canc elled via OM: Order cancelled - Patient discharged Performed By: #### L 100.0100, L500.2500 ####[facility] [address] [place], [address] CO2 Normal 21.0-32.0 [facility] Comment on above: Result Comment: Canc elled via OM: Order cancelled - Patient discharged Performed By: #### L 100.0100, L500.2500 ####[facility] [address] [place], [address] CREAT,SERUM Normal 0.70-1.30 [facility] Comment on above: Result Comment: Canc elled via OM: Order cancelled - Patient discharged Performed By: #### L 100.0100, L500.2500 ####[facility] [address] [place], [address] EST GFR Normal >60 [facility] Comment on above: Result Comment: Canc elled via OM: Order cancelled - Patient discharged Performed By: #### L 100.0100, L500.2500 ####[facility] [address] [place], [address] EST GFR - AA Normal >60 [facility] Comment on above: Result Comment: Canc elled via OM: Order cancelled - Patient discharged Performed By: #### L 100.0100, L500.2500 ####[facility] [address] [place], [address] GAP Normal 5-15 [facility] Comment on above: Result Comment: Canc elled via OM: Order cancelled - Patient discharged Performed By: #### L 100.0100, L500.2500 ####[facility] [address] [place], [address] GLU Normal 74-106 [facility] Comment on above: Result Comment: Canc elled via OM: Order cancelled - Patient discharged Performed By: #### L 100.0100, L500.2500 ####[facility] [address] [place], [address] Potassium Normal 3.5-5.1 [facility] Comment on above: Result Comment: Canc elled via OM: Order cancelled - Patient discharged Performed By: #### L 100.0100, L500.2500 ####[facility] [address] [place], [address] Basic Metabolic Profile (BMP) Normal 136-145 [facility] Comment on above: Result Comment: Canc elled via OM: Order cancelled - Patient discharged Performed By: #### L 100.0100, L500.2500 ####[facility] [address] [place], [address] CBC W/Diff, Automatedon 10-2 -2023 Absolute Neut Normal 2.0-7.7 [facility] Comment on above: Result Comment: Canc elled via OM: Order cancelled - Patient discharged Performed By: #### L 100.0100, L500.2500 ####[facility] [address] [place], [address] HCT Normal 40-54 [facility] Comment on above: Result Comment: Canc elled via OM: Order cancelled - Patient discharged Performed By: #### L 100.0100, L500.2500 ####[facility] [address] [place], [address] HGB Normal 13.0-16.5 [facility] Comment on above: Result Comment: Canc elled via OM: Order cancelled - Patient discharged Performed By: #### L 100.0100, L500.2500 ####[facility] [address] [place], [address] MCH Normal 27.0-32.0 [facility] Comment on above: Result Comment: Canc elled via OM: Order cancelled - Patient discharged Performed By: #### L 100.0100, L500.2500 ####[facility] [address] [place], [address] MCHC Normal 32-36 [facility] Comment on above: Result Comment: Canc elled via OM: Order cancelled - Patient discharged Performed By: #### L 100.0100, L500.2500 ####[facility] [address] [place], [address] MCV Normal 80-94 [facility] Comment on above: Result Comment: Canc elled via OM: Order cancelled - Patient discharged Performed By: #### L 100.0100, L500.2500 ####[facility] [address] [place], [address] NEUT% Normal 47-70 [facility] Comment on above: Result Comment: Canc elled via OM: Order cancelled - Patient discharged Performed By: #### L 100.0100, L500.2500 ####[facility] [address] [place], [address] PLT Normal 150-450 [facility] Comment on above: Result Comment: Canc elled via OM: Order cancelled - Patient discharged Performed By: #### L 100.0100, L500.2500 ####[facility] [address] [place], [address] RBC Normal 4.6-6.2 [facility] Comment on above: Result Comment: Canc elled via OM: Order cancelled - Patient discharged Performed By: #### L 100.0100, L500.2500 ####[facility] [address] [place], [address] RDW CV Normal 11.6-14.6 [facility] Comment on above: Result Comment: Canc elled via OM: Order cancelled - Patient discharged Performed By: #### L 100.0100, L500.2500 ####[facility] [address], [address] RDW SD Normal 35.1-43.9 [facility] Comment on above: Result Comment: Canc elled via OM: Order cancelled - Patient discharged Performed By: #### L 100.0100, L500.2500 ####[facility] [address] [place], [address] WBC Normal 4.4-11.0 [facility] Comment on above: Result Comment: Canc elled via OM: Order cancelled - Patient discharged Performed By: #### L 100.0100, L500.2500 ####[facility] [address] [place], [address] Basic Metabolic Profile (BMP )on 04-12-2024 BUN/CRE 21.1 RATIO High 10- [facility] Comment on above: Order Comment: 306-2 Performed By: #### L 100.0500, L500.2500 ####[facility] [address], [address] CA,Total 10.1 mg/dL Normal 8.5-10.1 [facility] Comment on above: Order Comment: 306-2 Performed By: #### L 100.0500, L500.2500 ####[facility] [address] [place], [address] Chloride [Moles/Vol] 106 mmol/L Normal 98-107 [facility] Comment on above: Order Comment: 306-2 Performed By: #### L 100.0500, L500.2500 ####[facility] [address] [place], [address] CO2 [Moles/Vol] 27.0 mmol/L Normal 21.0-32.0 [facility] Comment on above: Order Comment: 306-2 Performed By: #### L 100.0500, L500.2500 ####[facility] [address] [place], [address] Creatinine [Mass/Vol] 1.28 mg/dL Normal 0.70-1.30 [facility] Comment on above: Order Comment: 306-2 Result Comment: The validity of the calculated GFR GFRAA in patients over70 years has not been determined. Clinical correlation isessential. Performed By: #### L 100.0500, L500.2500 ####[facility] [address] [place], [address] EST GFR - AA 71 mL/min Normal >60 [facility] Comment on above: Order Comment: 306-2 Result Comment: Afri can [place] GFR Calc Performed By: #### L 100.0500, L500.2500 ####[facility] [address] [place], [address] GAP 7 Normal 5-15 [facility] Comment on above: Order Comment: 306-2 Performed By: #### L 100.0500, L500.2500 ####[facility] [address] [place], [address] GFR/1.73 sq M.predicted among non-blacks MDRD (S/P/Bld) [Vol rate/Area] 58 mL/min/{1.73_m2} Low >60 [facility] Comment on above: Order Comment: 306-2 Result Comment: Non- GFR Calc Performed By: #### L 100.0500, L500.2500 ####[facility] [address] [place], [address] Glucose [Mass/Vol] 94 mg/dL Normal 74-106 [facility] Comment on above: Order Comment: 306-2 Performed By: #### L 100.0500, L500.2500 ####[facility] [address] [place], [address] Potassium [Moles/Vol] 3.6 mmol/L Normal 3.5-5.1 [facility] Comment on above: Order Comment: 306-2 Performed By: #### L 100.0500, L500.2500 ####[facility] [address] [place], [address] Sodium [Moles/Vol] 140 mmol/L Normal 136-145 [facility] Comment on above: Order Comment: 306-2 Performed By: #### L 100.0500, L500.2500 ####[facility] [address] [place], [address] Urea nitrogen [Mass/Vol] 27 mg/dL High 7-18 [facility] Comment on above: Order Comment: 306-2 Performed By: #### L 100.0500, L500.2500 ####[facility] [address] [place], [address] BUN Normal 7-18 [facility] Comment on above: Result Comment: Canc elled via OM: Order cancelled - Patient discharged Performed By: #### L 500.2500, L100.0100 ####[facility] [address] [place], [address] BUN/CRE Normal 10-20 [facility] Comment on above: Result Comment: Canc elled via OM: Order cancelled - Patient discharged Performed By: #### L 500.2500, L100.0100 ####[facility] [address] [place], [address] CA,Total Normal 8.5-10.1 [facility] Comment on above: Result Comment: Canc elled via OM: Order cancelled - Patient discharged Performed By: #### L 500.2500, L100.0100 ####[facility] [address] [place], [address] CL Normal 98-107 [facility] Comment on above: Result Comment: Canc elled via OM: Order cancelled - Patient discharged Performed By: #### L 500.2500, L100.0100 ####[facility] [address], [address] CO2 Normal 21.0-32.0 [facility] Comment on above: Result Comment: Canc elled via OM: Order cancelled - Patient discharged Performed By: #### L 500.2500, L100.0100 ####[facility] [address] [place], [address] CREAT,SERUM Normal 0.70-1.30 [facility] Comment on above: Result Comment: Canc elled via OM: Order cancelled - Patient discharged Performed By: #### L 500.2500, L100.0100 ####[facility] [address] [place], [address] EST GFR Normal >60 [facility] Comment on above: Result Comment: Canc elled via OM: Order cancelled - Patient discharged Performed By: #### L 500.2500, L100.0100 ####[facility] [address] [place], [address] EST GFR - AA Normal >60 [facility] Comment on above: Result Comment: Canc elled via OM: Order cancelled - Patient discharged Performed By: #### L 500.2500, L100.0100 ####[facility] [address] [place], [address] GAP Normal 5-15 [facility] Comment on above: Result Comment: Canc elled via OM: Order cancelled - Patient discharged Performed By: #### L 500.2500, L100.0100 ####[facility] [address] [place], [address] GLU Normal 74-106 [facility] Comment on above: Result Comment: Canc elled via OM: Order cancelled - Patient discharged Performed By: #### L 500.2500, L100.0100 ####[facility] [address], [address] Potassium Normal 3.5-5.1 [facility] Comment on above: Result Comment: Canc elled via OM: Order cancelled - Patient discharged Performed By: #### L 500.2500, L100.0100 ####[facility] [address] [place], [address] Basic Metabolic Profile (BMP) Normal 136-145 [facility] Comment on above: Result Comment: Canc elled via OM: Order cancelled - Patient discharged Performed By: #### L 500.2500, L100.0100 ####[facility] [address] [place], [address] CBC W/Diff, Automatedon 10-2 Absolute Neut Normal 2.0-7.7 [facility] Comment on above: Result Comment: Canc elled via OM: Order cancelled - Patient discharged Performed By: #### L 500.2500, L100.0100 ####[facility] [address] [place], [address] HCT Normal 40-54 [facility] Comment on above: Result Comment: Canc elled via OM: Order cancelled - Patient discharged Performed By: #### L 500.2500, L100.0100 ####[facility] [address] [place], [address] HGB Normal 13.0-16.5 [facility] Comment on above: Result Comment: Canc elled via OM: Order cancelled - Patient discharged Performed By: #### L 500.2500, L100.0100 ####[facility] [address] [place], [address] MCH Normal 27.0-32.0 [facility] Comment on above: Result Comment: Canc elled via OM: Order cancelled - Patient discharged Performed By: #### L 500.2500, L100.0100 ####[facility] [address] [place], [address] MCHC Normal 32-36 [facility] Comment on above: Result Comment: Canc elled via OM: Order cancelled - Patient discharged Performed By: #### L 500.2500, L100.0100 ####[facility] [address], [address] MCV Normal 80-94 [facility] Comment on above: Result Comment: Canc elled via OM: Order cancelled - Patient discharged Performed By: #### L 500.2500, L100.0100 ####[facility] [address], [address] NEUT% Normal 47-70 [facility] Comment on above: Result Comment: Canc elled via OM: Order cancelled - Patient discharged Performed By: #### L 500.2500, L100.0100 ####[facility] [address] [place], [address] PLT Normal 150-450 [facility] Comment on above: Result Comment: Canc elled via OM: Order cancelled - Patient discharged Performed By: #### L 500.2500, L100.0100 ####[facility] [address] [place], [address] RBC Normal 4.6-6.2 [facility] Comment on above: Result Comment: Canc elled via OM: Order cancelled - Patient discharged Performed By: #### L 500.2500, L100.0100 ####[facility] [address] [place], [address] RDW CV Normal 11.6-14.6 [facility] Comment on above: Result Comment: Canc elled via OM: Order cancelled - Patient discharged Performed By: #### L 500.2500, L100.0100 ####[facility] [address] [place], [address] RDW SD Normal 35.1-43.9 [facility] Comment on above: Result Comment: Canc elled via OM: Order cancelled - Patient discharged Performed By: #### L 500.2500, L100.0100 ####[facility] [address] [place], [address] WBC Normal 4.4-11.0 [facility] Comment on above: Result Comment: Canc elled via OM: Order cancelled - Patient discharged Performed By: #### L 500.2500, L100.0100 ####[facility] [address] [place], [address] CBC-Complete Blood Cnt No Di ffon 04-12-2024 Erythrocyte distribution width (RBC) [Ratio] 13.3 % Normal 11.6-14.6 [facility] Comment on above: Order Comment: 306-2 Performed By: #### L 100.0500, L500.2500 ####[facility] [address] [place], [address] Hematocrit (Bld) [Volume fraction] 49.2 % Normal 40-54 [facility] Comment on above: Order Comment: 306-2 Performed By: #### L 100.0500, L500.2500 ####[facility] [address] [place], [address] Hemoglobin (Bld) [Mass/Vol] 16.4 g/dL Normal 13.0-16.5 [facility] Comment on above: Order Comment: 306-2 Performed By: #### L 100.0500, L500.2500 ####[facility] [address] [place], [address] MCH (RBC) [Entitic mass] 33.4 pg High 27.0-32.0 [facility] Comment on above: Order Comment: 306-2 Performed By: #### L 100.0500, L500.2500 ####[facility] [address] [place], [address] MCHC (RBC) [Mass/Vol] 33.3 g/dL Normal 32-36 [facility] Comment on above: Order Comment: 306-2 Performed By: #### L 100.0500, L500.2500 ####[facility] [address] [place], [address] MCV (RBC) [Entitic vol] 100.2 fL High 80-94 [facility] Comment on above: Order Comment: 306-2 Performed By: #### L 100.0500, L500.2500 ####[facility] [address] [place], [address] Platelet mean volume (Bld) [Entitic vol] 10.1 fL Normal 6.2-12.0 [facility] Comment on above: Order Comment: 306-2 Performed By: #### L 100.0500, L500.2500 ####[facility] [address] [place], [address] Platelets (Bld) [#/Vol] 305 10*3/uL Normal 150-450 [facility] Comment on above: Order Comment: 306-2 Performed By: #### L 100.0500, L500.2500 ####[facility] [address] [place], [address] RBC (Bld) [#/Vol] 4.91 10*6/uL Normal 4.6-6.2 [facility] Comment on above: Order Comment: 306-2 Performed By: #### L 100.0500, L500.2500 ####[facility] [address] [place], [address] RDW SD 49.8 fl High 35.1-43.9 [facility] Comment on above: Order Comment: 306-2 Performed By: #### L 100.0500, L500.2500 ####[facility] [address] [place], [address] WBC (Bld) [#/Vol] 7.4 10*3/uL Normal 4.4-11.0 [facility] Comment on above: Order Comment: 306-2 Performed By: #### L 100.0500, L500.2500 ####[facility] [address] [place], [address] Basic Metabolic Profile (BMP )on 04-11-2024 BUN Normal 7-18 [facility] Comment on above: Result Comment: Canc elled via OM: Order cancelled - Patient discharged Performed By: #### L 500.2500, L100.0100 ####[facility] [address] [place], [address] BUN/CRE Normal 10-20 [facility] Comment on above: Result Comment: Canc elled via OM: Order cancelled - Patient discharged Performed By: #### L 500.2500, L100.0100 ####[facility] [address] [place], [address] CA,Total Normal 8.5-10.1 [facility] Comment on above: Result Comment: Canc elled via OM: Order cancelled - Patient discharged Performed By: #### L 500.2500, L100.0100 ####[facility] [address] [place], [address] CL Normal 98-107 [facility] Comment on above: Result Comment: Canc elled via OM: Order cancelled - Patient discharged Performed By: #### L 500.2500, L100.0100 ####[facility] [address] [place], [address] CO2 Normal 21.0-32.0 [facility] Comment on above: Result Comment: Canc elled via OM: Order cancelled - Patient discharged Performed By: #### L 500.2500, L100.0100 ####[facility] [address] [place], [address] CREAT,SERUM Normal 0.70-1.30 [facility] Comment on above: Result Comment: Canc elled via OM: Order cancelled - Patient discharged Performed By: #### L 500.2500, L100.0100 ####[facility] [address] [place], [address] EST GFR Normal >60 [facility] Comment on above: Result Comment: Canc elled via OM: Order cancelled - Patient discharged Performed By: #### L 500.2500, L100.0100 ####[facility] [address] [place], [address] EST GFR - AA Normal >60 [facility] Comment on above: Result Comment: Canc elled via OM: Order cancelled - Patient discharged Performed By: #### L 500.2500, L100.0100 ####[facility] [address] [place], [address] GAP Normal 5-15 [facility] Comment on above: Result Comment: Canc elled via OM: Order cancelled - Patient discharged Performed By: #### L 500.2500, L100.0100 ####[facility] [address] [place], [address] GLU Normal 74-106 [facility] Comment on above: Result Comment: Canc elled via OM: Order cancelled - Patient discharged Performed By: #### L 500.2500, L100.0100 ####[facility] [address] [place], [address] Potassium Normal 3.5-5.1 [facility] Comment on above: Result Comment: Canc elled via OM: Order cancelled - Patient discharged Performed By: #### L 500.2500, L100.0100 ####[facility] [address] [place], [address] Basic Metabolic Profile (BMP) Normal 136-145 [facility] Comment on above: Result Comment: Canc elled via OM: Order cancelled - Patient discharged Performed By: #### L 500.2500, L100.0100 ####[facility] [address] [place], [address] CBC W/Diff, Automatedon 10-2 Absolute Neut Normal 2.0-7.7 [facility] Comment on above: Result Comment: Canc elled via OM: Order cancelled - Patient discharged Performed By: #### L 500.2500, L100.0100 ####[facility] [address] [place], [address] HCT Normal 40-54 [facility] Comment on above: Result Comment: Canc elled via OM: Order cancelled - Patient discharged Performed By: #### L 500.2500, L100.0100 ####[facility] [address] [place], [address] HGB Normal 13.0-16.5 [facility] Comment on above: Result Comment: Canc elled via OM: Order cancelled - Patient discharged Performed By: #### L 500.2500, L100.0100 ####[facility] [address] [place], [address] MCH Normal 27.0-32.0 [facility] Comment on above: Result Comment: Canc elled via OM: Order cancelled - Patient discharged Performed By: #### L 500.2500, L100.0100 ####[facility] [address] [place], [address] MCHC Normal 32-36 [facility] Comment on above: Result Comment: Canc elled via OM: Order cancelled - Patient discharged Performed By: #### L 500.2500, L100.0100 ####[facility] [address], [address] MCV Normal 80-94 [facility] Comment on above: Result Comment: Canc elled via OM: Order cancelled - Patient discharged Performed By: #### L 500.2500, L100.0100 ####[facility] [address] [place], [address] NEUT% Normal 47-70 [facility] Comment on above: Result Comment: Canc elled via OM: Order cancelled - Patient discharged Performed By: #### L 500.2500, L100.0100 ####[facility] [address] [place], [address] PLT Normal 150-450 [facility] Comment on above: Result Comment: Canc elled via OM: Order cancelled - Patient discharged Performed By: #### L 500.2500, L100.0100 ####[facility] [address] [place], [address] RBC Normal 4.6-6.2 [facility] Comment on above: Result Comment: Canc elled via OM: Order cancelled - Patient discharged Performed By: #### L 500.2500, L100.0100 ####[facility] [address] [place], [address] RDW CV Normal 11.6-14.6 [facility] Comment on above: Result Comment: Canc elled via OM: Order cancelled - Patient discharged Performed By: #### L 500.2500, L100.0100 ####[facility] [address] [place], [address] RDW SD Normal 35.1-43.9 [facility] Comment on above: Result Comment: Canc elled via OM: Order cancelled - Patient discharged Performed By: #### L 500.2500, L100.0100 ####[facility] [address] [place], [address] WBC Normal 4.4-11.0 [facility] Comment on above: Result Comment: Canc elled via OM: Order cancelled - Patient discharged Performed By: #### L 500.2500, L100.0100 ####[facility] [address] [place], [address] Basic Metabolic Profile (BMP )on 04-10-2024 BUN/CRE 16.1 RATIO Normal 10-20 [facility] Comment on above: Performed By: #### L 500.2500, L100.0100 ####[facility] [address] [place], [address] CA,Total 9.4 mg/dL Normal 8.5-10.1 [facility] Comment on above: Performed By: #### L 500.2500, L100.0100 ####[facility] [address] [place], [address] Chloride [Moles/Vol] 106 mmol/L Normal 98-107 [facility] Comment on above: Performed By: #### L 500.2500, L100.0100 ####[facility] [address] [place], [address] CO2 [Moles/Vol] 25.0 mmol/L Normal 21.0-32.0 [facility] Comment on above: Performed By: #### L 500.2500, L100.0100 ####[facility] [address] [place], [address] Creatinine [Mass/Vol] 1.74 mg/dL High 0.70-1.30 [facility] Comment on above: Result Comment: The validity of the calculated GFR GFRAA in patients over70 years has not been determined. Clinical correlation isessential. Performed By: #### L 500.2500, L100.0100 ####[facility] [address] [place], [address] ECRCL 33.61 ml/min Normal [facility] Comment on above: Performed By: #### L 500.2500, L100.0100 ####[facility] [address] [place], [address] EST GFR - AA 50 mL/min Low >60 [facility] Comment on above: Result Comment: Afri can [place] GFR Calc Performed By: #### L 500.2500, L100.0100 ####[facility] [address] [place], [address] GAP 5 Normal 5-15 [facility] Comment on above: Performed By: #### L 500.2500, L100.0100 ####[facility] [address] [place], [address] GFR/1.73 sq M.predicted among non-blacks MDRD (S/P/Bld) [Vol rate/Area] 41 mL/min/{1.73_m2} Low >60 [facility] Comment on above: Result Comment: Non- GFR Calc Performed By: #### L 500.2500, L100.0100 ####[facility] [address] [place], [address] Glucose [Mass/Vol] 90 mg/dL Normal 74-106 [facility] Comment on above: Performed By: #### L 500.2500, L100.0100 ####[facility] [address] [place], [address] Potassium [Moles/Vol] 4.1 mmol/L Normal 3.5-5.1 [facility] Comment on above: Performed By: #### L 500.2500, L100.0100 ####[facility] [address] [place], [address] Sodium [Moles/Vol] 136 mmol/L Normal 136-145 [facility] Comment on above: Performed By: #### L 500.2500, L100.0100 ####[facility] [address] [place], [address] Urea nitrogen [Mass/Vol] 28 mg/dL High 7-18 [facility] Comment on above: Performed By: #### L 500.2500, L100.0100 ####[facility] [address] [place], [address] CBC W/Diff, Automatedon 10-2 3-2023 Absolute Lymph 1.36 X10 3/uL Normal 0.83-4.51 [facility] Comment on above: Performed By: #### L 500.2500, L100.0100 ####[facility] [address] [place], [address] Absolute Neut 5.5 X10 3/uL Normal 2.0-7.7 [facility] Comment on above: Performed By: #### L 500.2500, L100.0100 ####[facility] [address] [place], [address] Basophils/100 WBC (Bld) 0.7 % Normal 0-1 [facility] Comment on above: Performed By: #### L 500.2500, L100.0100 ####[facility] [address] [place], [address] Eosinophils/100 WBC (Bld) 0.3 % Normal 0-5 [facility] Comment on above: Performed By: #### L 500.2500, L100.0100 ####[facility] [address] [place], [address] Erythrocyte distribution width (RBC) [Ratio] 13.4 % Normal 11.6-14.6 [facility] Comment on above: Performed By: #### L 500.2500, L100.0100 ####[facility] [address] [place], [address] Hematocrit (Bld) [Volume fraction] 45.6 % Normal 40-54 [facility] Comment on above: Performed By: #### L 500.2500, L100.0100 ####[facility] [address] [place], [address] Hemoglobin (Bld) [Mass/Vol] 15.4 g/dL Normal 13.0-16.5 [facility] Comment on above: Performed By: #### L 500.2500, L100.0100 ####[facility] [address] [place], [address] IG% 0.800 Normal 0.0-0.9 [facility] Comment on above: Result Comment: IG% - Immature Granulocytes (promyelocytes, myelocytes andmetamyelocytes) > 1% indicates that a LEFT SHIFT is Present. Performed By: #### L 500.2500, L100.0100 ####[facility] [address] [place], [address] Lymphocytes/100 WBC (Bld) 18.0 % Low 19-41 [facility] Comment on above: Performed By: #### L 500.2500, L100.0100 ####[facility] [address] [place], [address] MCH (RBC) [Entitic mass] 33.6 pg High 27.0-32.0 [facility] Comment on above: Performed By: #### L 500.2500, L100.0100 ####[facility] [address] [place], [address] MCHC (RBC) [Mass/Vol] 33.8 g/dL Normal 32-36 [facility] Comment on above: Performed By: #### L 500.2500, L100.0100 ####[facility] [address] [place], [address] MCV (RBC) [Entitic vol] 99.3 fL High 80-94 [facility] Comment on above: Performed By: #### L 500.2500, L100.0100 ####[facility] [address] [place], [address] Monocytes/100 WBC (Bld) 7.0 % Normal 0-10 [facility] Comment on above: Performed By: #### L 500.2500, L100.0100 ####[facility] [address] [place], [address] Neutrophils/100 WBC (Bld) 73.2 % High 47-70 [facility] Comment on above: Performed By: #### L 500.2500, L100.0100 ####[facility] [address] [place], [address] Nucleated RBC (Bld) [#/Vol] 0 10*3/uL Normal 0-5 [facility] Comment on above: Performed By: #### L 500.2500, L100.0100 ####[facility] [address] [place], [address] Platelet mean volume (Bld) [Entitic vol] 10.1 fL Normal 6.2-12.0 [facility] Comment on above: Performed By: #### L 500.2500, L100.0100 ####[facility] [address] [place], [address] Platelets (Bld) [#/Vol] 296 10*3/uL Normal 150-450 [facility] Comment on above: Performed By: #### L 500.2500, L100.0100 ####[facility] [address] [place], [address] RBC (Bld) [#/Vol] 4.59 10*6/uL Low 4.6-6.2 [facility] Comment on above: Performed By: #### L 500.2500, L100.0100 ####[facility] [address] [place], [address] RDW SD 48.8 fl High 35.1-43.9 [facility] Comment on above: Performed By: #### L 500.2500, L100.0100 ####[facility] [address] [place], [address] WBC (Bld) [#/Vol] 7.6 10*3/uL Normal 4.4-11.0 [facility] Comment on above: Performed By: #### L 500.2500, L100.0100 ####[facility] [address] [place], [address] Basic Metabolic Profile (BMP )on 04-09-2024 BUN/CRE 15.3 RATIO Normal - [facility] Comment on above: Performed By: #### L 500.2500, L100.0100 ####[facility] [address] [place], [address] CA,Total 9.8 mg/dL Normal 8.5-10.1 [facility] Comment on above: Performed By: #### L 500.2500, L100.0100 ####[facility] [address] [place], [address] Chloride [Moles/Vol] 107 mmol/L Normal 98-107 [facility] Comment on above: Performed By: #### L 500.2500, L100.0100 ####[facility] [address] [place], [address] CO2 [Moles/Vol] 26.0 mmol/L Normal 21.0-32.0 [facility] Comment on above: Performed By: #### L 500.2500, L100.0100 ####[facility] [address] [place], [address] Creatinine [Mass/Vol] 1.44 mg/dL High 0.70-1.30 [facility] Comment on above: Result Comment: The validity of the calculated GFR GFRAA in patients over70 years has not been determined. Clinical correlation isessential. Performed By: #### L 500.2500, L100.0100 ####[facility] [address] [place], [address] ECRCL 40.61 ml/min Normal [facility] Comment on above: Performed By: #### L 500.2500, L100.0100 ####[facility] [address] [place], [address] EST GFR - AA 62 mL/min Normal >60 [facility] Comment on above: Result Comment: Afri can [place]uran GFR Calc Performed By: #### L 500.2500, L100.0100 ####[facility] [address] [place], [address] GAP 4 Low 5-15 [facility] Comment on above: Performed By: #### L 500.2500, L100.0100 ####[facility] [address] [place], [address] GFR/1.73 sq M.predicted among non-blacks MDRD (S/P/Bld) [Vol rate/Area] 51 mL/min/{1.73_m2} Low >60 [facility] Comment on above: Result Comment: Non- GFR Calc Performed By: #### L 500.2500, L100.0100 ####[facility] [address] [place], [address] Glucose [Mass/Vol] 97 mg/dL Normal 74-106 [facility] Comment on above: Performed By: #### L 500.2500, L100.0100 ####[facility] [address] [place], [address] Potassium [Moles/Vol] 4.0 mmol/L Normal 3.5-5.1 [facility] Comment on above: Result Comment: Mode rate Hemolysis, Result may be falsely increased. Performed By: #### L 500.2500, L100.0100 ####[facility] [address] [place], [address] Sodium [Moles/Vol] 137 mmol/L Normal 136-145 [facility] Comment on above: Performed By: #### L 500.2500, L100.0100 ####[facility] [address] [place], [address] Urea nitrogen [Mass/Vol] 22 mg/dL High 7-18 [facility] Comment on above: Performed By: #### L 500.2500, L100.0100 ####[facility] [address] [place], [address] CBC W/Diff, Automatedon 10-2 -2023 Absolute Lymph 1.04 X10 3/uL Normal 0.83-4.51 [facility] Comment on above: Performed By: #### L 500.2500, L100.0100 ####[facility] [address] [place], [address] Absolute Neut 5.9 X10 3/uL Normal 2.0-7.7 [facility] Comment on above: Performed By: #### L 500.2500, L100.0100 ####[facility] [address] [place], [address] Basophils/100 WBC (Bld) 0.7 % Normal 0-1 [facility] Comment on above: Performed By: #### L 500.2500, L100.0100 ####[facility] [address] [place], [address] Eosinophils/100 WBC (Bld) 0.9 % Normal 0-5 [facility] Comment on above: Performed By: #### L 500.2500, L100.0100 ####[facility] [address] [place], [address] Erythrocyte distribution width (RBC) [Ratio] 13.2 % Normal 11.6-14.6 [facility] Comment on above: Performed By: #### L 500.2500, L100.0100 ####[facility] [address] [place], [address] Hematocrit (Bld) [Volume fraction] 45.7 % Normal 40-54 [facility] Comment on above: Performed By: #### L 500.2500, L100.0100 ####[facility] [address] [place], [address] Hemoglobin (Bld) [Mass/Vol] 15.0 g/dL Normal 13.0-16.5 [facility] Comment on above: Performed By: #### L 500.2500, L100.0100 ####[facility] [address] [place], [address] IG% 0.500 Normal 0.0-0.9 [facility] Comment on above: Result Comment: IG% - Immature Granulocytes (promyelocytes, myelocytes andmetamyelocytes) > 1% indicates that a LEFT SHIFT is Present. Performed By: #### L 500.2500, L100.0100 ####[facility] [address] [place], [address] Lymphocytes/100 WBC (Bld) 13.6 % Low 19-41 [facility] Comment on above: Performed By: #### L 500.2500, L100.0100 ####[facility] [address] [place], [address] MCH (RBC) [Entitic mass] 32.5 pg High 27.0-32.0 [facility] Comment on above: Performed By: #### L 500.2500, L100.0100 ####[facility] [address] [place], [address] MCHC (RBC) [Mass/Vol] 32.8 g/dL Normal 32-36 [facility] Comment on above: Performed By: #### L 500.2500, L100.0100 ####[facility] [address] [place], [address] MCV (RBC) [Entitic vol] 98.9 fL High 80-94 [facility] Comment on above: Performed By: #### L 500.2500, L100.0100 ####[facility] [address] [place], [address] Monocytes/100 WBC (Bld) 7.2 % Normal 0-10 [facility] Comment on above: Performed By: #### L 500.2500, L100.0100 ####[facility] [address] [place], [address] Neutrophils/100 WBC (Bld) 77.1 % High 47-70 [facility] Comment on above: Performed By: #### L 500.2500, L100.0100 ####[facility] [address] [place], [address] Nucleated RBC (Bld) [#/Vol] 0 10*3/uL Normal 0-5 [facility] Comment on above: Performed By: #### L 500.2500, L100.0100 ####[facility] [address] [place], [address] Platelet mean volume (Bld) [Entitic vol] 10.0 fL Normal 6.2-12.0 [facility] Comment on above: Performed By: #### L 500.2500, L100.0100 ####[facility] [address] [place], [address] Platelets (Bld) [#/Vol] 309 10*3/uL Normal 150-450 [facility] Comment on above: Performed By: #### L 500.2500, L100.0100 ####[facility] [address] [place], [address] RBC (Bld) [#/Vol] 4.62 10*6/uL Normal 4.6-6.2 [facility] Comment on above: Performed By: #### L 500.2500, L100.0100 ####[facility] [address] [place], [address] RDW SD 48.0 fl High 35.1-43.9 [facility] Comment on above: Performed By: #### L 500.2500, L100.0100 ####[facility] [address] [place], [address] WBC (Bld) [#/Vol] 7.7 10*3/uL Normal 4.4-11.0 [facility] Comment on above: Performed By: #### L 500.2500, L100.0100 ####[facility] [address] [place], [address] Basic Metabolic Profile (BMP )on 04-08-2024 BUN/CRE 10.4 RATIO Normal - [facility] Comment on above: Performed By: #### L 500.2500, L100.0100 ####[facility] [address] [place], [address] CA,Total 9.6 mg/dL Normal 8.5-10.1 [facility] Comment on above: Performed By: #### L 500.2500, L100.0100 ####[facility] [address] [place], [address] Chloride [Moles/Vol] 108 mmol/L High 98-107 [facility] Comment on above: Performed By: #### L 500.2500, L100.0100 ####[facility] [address] [place], [address] CO2 [Moles/Vol] 24.0 mmol/L Normal 21.0-32.0 [facility] Comment on above: Performed By: #### L 500.2500, L100.0100 ####[facility] [address] [place], [address] Creatinine [Mass/Vol] 1.15 mg/dL Normal 0.70-1.30 [facility] Comment on above: Result Comment: The validity of the calculated GFR GFRAA in patients over70 years has not been determined. Clinical correlation isessential. Performed By: #### L 500.2500, L100.0100 ####[facility] [address] [place], [address] ECRCL 50.86 ml/min Normal [facility] Comment on above: Performed By: #### L 500.2500, L100.0100 ####[facility] [address] [place], [address] EST GFR - AA 80 mL/min Normal >60 [facility] Comment on above: Result Comment: Afri can [place] GFR Calc Performed By: #### L 500.2500, L100.0100 ####[facility] [address] [place], [address] GAP 9 Normal 5-15 [facility] Comment on above: Performed By: #### L 500.2500, L100.0100 ####[facility] [address] [place], [address] GFR/1.73 sq M.predicted among non-blacks MDRD (S/P/Bld) [Vol rate/Area] 66 mL/min/{1.73_m2} Normal >60 [facility] Comment on above: Result Comment: Non- GFR Calc Performed By: #### L 500.2500, L100.0100 ####[facility] [address] [place], [address] Glucose [Mass/Vol] 92 mg/dL Normal 74-106 [facility] Comment on above: Performed By: #### L 500.2500, L100.0100 ####[facility] [address] [place], [address] Potassium [Moles/Vol] 3.9 mmol/L Normal 3.5-5.1 [facility] Comment on above: Result Comment: Slig ht Hemolysis, Result may be falsely increased. Performed By: #### L 500.2500, L100.0100 ####[facility] [address], [address] Sodium [Moles/Vol] 142 mmol/L Normal 136-145 [facility] Comment on above: Performed By: #### L 500.2500, L100.0100 ####[facility] [address] [place], [address] Urea nitrogen [Mass/Vol] 12 mg/dL Normal 7-18 [facility] Comment on above: Performed By: #### L 500.2500, L100.0100 ####[facility] [address] [place], [address] CBC W/Diff, Automatedon 10-2 -2023 Absolute Lymph 1.20 X10 3/uL Normal 0.83-4.51 [facility] Comment on above: Performed By: #### L 500.2500, L100.0100 ####[facility] [address] [place], [address] Absolute Neut 4.1 X10 3/uL Normal 2.0-7.7 [facility] Comment on above: Performed By: #### L 500.2500, L100.0100 ####[facility] [address] [place], [address] Basophils/100 WBC (Bld) 1.3 % High 0-1 [facility] Comment on above: Performed By: #### L 500.2500, L100.0100 ####[facility] [address] [place], [address] Eosinophils/100 WBC (Bld) 2.0 % Normal 0-5 [facility] Comment on above: Performed By: #### L 500.2500, L100.0100 ####[facility] [address] [place], [address] Erythrocyte distribution width (RBC) [Ratio] 13.0 % Normal 11.6-14.6 [facility] Comment on above: Performed By: #### L 500.2500, L100.0100 ####[facility] [address] [place], [address] Hematocrit (Bld) [Volume fraction] 44.0 % Normal 40-54 [facility] Comment on above: Performed By: #### L 500.2500, L100.0100 ####[facility] [address] [place], [address] Hemoglobin (Bld) [Mass/Vol] 14.6 g/dL Normal 13.0-16.5 [facility] Comment on above: Performed By: #### L 500.2500, L100.0100 ####[facility] [address] [place], [address] IG% 0.300 Normal 0.0-0.9 [facility] Comment on above: Result Comment: IG% - Immature Granulocytes (promyelocytes, myelocytes andmetamyelocytes) > 1% indicates that a LEFT SHIFT is Present. Performed By: #### L 500.2500, L100.0100 ####[facility] [address] [place], [address] Lymphocytes/100 WBC (Bld) 20.0 % Normal 19-41 [facility] Comment on above: Performed By: #### L 500.2500, L100.0100 ####[facility] [address] [place], [address] MCH (RBC) [Entitic mass] 32.7 pg High 27.0-32.0 [facility] Comment on above: Performed By: #### L 500.2500, L100.0100 ####[facility] [address] [place], [address] MCHC (RBC) [Mass/Vol] 33.2 g/dL Normal 32-36 [facility] Comment on above: Performed By: #### L 500.2500, L100.0100 ####[facility] [address] [place], [address] MCV (RBC) [Entitic vol] 98.4 fL High 80-94 [facility] Comment on above: Performed By: #### L 500.2500, L100.0100 ####[facility] [address] [place], [address] Monocytes/100 WBC (Bld) 8.7 % Normal 0-10 [facility] Comment on above: Performed By: #### L 500.2500, L100.0100 ####[facility] [address] [place], [address] Neutrophils/100 WBC (Bld) 67.7 % Normal 47-70 [facility] Comment on above: Performed By: #### L 500.2500, L100.0100 ####[facility] [address] [place], [address] Nucleated RBC (Bld) [#/Vol] 0 10*3/uL Normal 0-5 [facility] Comment on above: Performed By: #### L 500.2500, L100.0100 ####[facility] [address] [place], [address] Platelet mean volume (Bld) [Entitic vol] 9.9 fL Normal 6.2-12.0 [facility] Comment on above: Performed By: #### L 500.2500, L100.0100 ####[facility] [address] [place], [address] Platelets (Bld) [#/Vol] 270 10*3/uL Normal 150-450 [facility] Comment on above: Performed By: #### L 500.2500, L100.0100 ####[facility] [address] [place], [address] RBC (Bld) [#/Vol] 4.47 10*6/uL Low 4.6-6.2 [facility] Comment on above: Performed By: #### L 500.2500, L100.0100 ####[facility] [address] [place], [address] RDW SD 47.0 fl High 35.1-43.9 [facility] Comment on above: Performed By: #### L 500.2500, L100.0100 ####[facility] [address] [place], [address] WBC (Bld) [#/Vol] 6.0 10*3/uL Normal 4.4-11.0 [facility] Comment on above: Performed By: #### L 500.2500, L100.0100 ####[facility] [address] [place], [address] Vitamin D,25 Hydroxyon 04-08 Vitamin D 25-OH 35.4 ng/mL Normal [facility] Comment on above: Result Comment: Teri min D 25(OH) Status Range Deficiency <20 ng/mL (50nmol/L) Insufficiency 20 - 30 ng/mL (50 - 75 nmol/L) Sufficiency 30 - 100 ng/mL (75 - 250 nmol/L) Toxicity >100 ng/mL (>250 nmol/L) Performed By: #### L 506.1000 ####[facility] [address] [place], [address] Basic Metabolic Profile (BMP )on 04-07-2024 BUN/CRE 16.2 RATIO Normal 04-07 [facility] Comment on above: Performed By: #### L 100.0100, L501.9520, L500.2500 ####[facility] [address] [place], [address] CA,Total 9.1 mg/dL Normal 8.5-10.1 [facility] Comment on above: Performed By: #### L 100.0100, L501.9520, L500.2500 ####[facility] [address] [place], [address] Chloride [Moles/Vol] 106 mmol/L Normal 98-107 [facility] Comment on above: Performed By: #### L 100.0100, L501.9520, L500.2500 ####[facility] [address] [place], [address] CO2 [Moles/Vol] 25.0 mmol/L Normal 21.0-32.0 [facility] Comment on above: Performed By: #### L 100.0100, L501.9520, L500.2500 ####[facility] [address] [place], [address] Creatinine [Mass/Vol] 1.05 mg/dL Normal 0.70-1.30 [facility] Comment on above: Result Comment: The validity of the calculated GFR GFRAA in patients over70 years has not been determined. Clinical correlation isessential. Performed By: #### L 100.0100, L501.9520, L500.2500 ####[facility] [address] [place], [address] ECRCL 55.70 ml/min Normal [facility] Comment on above: Performed By: #### L 100.0100, L501.9520, L500.2500 ####[facility] [address] [place], [address] EST GFR - AA 89 mL/min Normal >60 [facility] Comment on above: Result Comment: Afri can [place] GFR Calc Performed By: #### L 100.0100, L501.9520, L500.2500 ####[facility] [address] [place], [address] GAP 4 Low 5-15 [facility] Comment on above: Performed By: #### L 100.0100, L501.9520, L500.2500 ####[facility] [address] [place], [address] GFR/1.73 sq M.predicted among non-blacks MDRD (S/P/Bld) [Vol rate/Area] 73 mL/min/{1.73_m2} Normal >60 [facility] Comment on above: Result Comment: Non- GFR Calc Performed By: #### L 100.0100, L501.9520, L500.2500 ####[facility] [address] [place], [address] Glucose [Mass/Vol] 95 mg/dL Normal 74-106 [facility] Comment on above: Performed By: #### L 100.0100, L501.9520, L500.2500 ####[facility] [address] [place], [address] Potassium [Moles/Vol] 3.6 mmol/L Normal 3.5-5.1 [facility] Comment on above: Performed By: #### L 100.0100, L501.9520, L500.2500 ####[facility] [address] [place], [address] Sodium [Moles/Vol] 135 mmol/L Low 136-145 [facility] Comment on above: Performed By: #### L 100.0100, L501.9520, L500.2500 ####[facility] [address] [place], [address] Urea nitrogen [Mass/Vol] 17 mg/dL Normal 7-18 [facility] Comment on above: Performed By: #### L 100.0100, L501.9520, L500.2500 ####[facility] [address] [place], [address] CBC W/Diff, Automatedon 10-2 0-2024 Absolute Lymph 1.44 X10 3/uL Normal 0.83-4.51 [facility] Comment on above: Performed By: #### L 100.0100, L501.9520, L500.2500 ####[facility] [address] [place], [address] Absolute Neut 3.8 X10 3/uL Normal 2.0-7.7 [facility] Comment on above: Performed By: #### L 100.0100, L501.9520, L500.2500 ####[facility] [address] [place], [address] Basophils/100 WBC (Bld) 1.5 % High 0-1 [facility] Comment on above: Performed By: #### L 100.0100, L501.9520, L500.2500 ####[facility] [address] [place], [address] Eosinophils/100 WBC (Bld) 1.5 % Normal 0-5 [facility] Comment on above: Performed By: #### L 100.0100, L501.9520, L500.2500 ####[facility] [address] [place], [address] Erythrocyte distribution width (RBC) [Ratio] 12.8 % Normal 11.6-14.6 [facility] Comment on above: Performed By: #### L 100.0100, L501.9520, L500.2500 ####[facility] [address] [place], [address] Hematocrit (Bld) [Volume fraction] 42.4 % Normal 40-54 [facility] Comment on above: Performed By: #### L 100.0100, L501.9520, L500.2500 ####[facility] [address] [place], [address] Hemoglobin (Bld) [Mass/Vol] 14.2 g/dL Normal 13.0-16.5 [facility] Comment on above: Performed By: #### L 100.0100, L501.9520, L500.2500 ####[facility] [address] [place], [address] IG% 0.300 Normal 0.0-0.9 [facility] Comment on above: Result Comment: IG% - Immature Granulocytes (promyelocytes, myelocytes andmetamyelocytes) > 1% indicates that a LEFT SHIFT is Present. Performed By: #### L 100.0100, L501.9520, L500.2500 ####[facility] [address] [place], [address] Lymphocytes/100 WBC (Bld) 24.4 % Normal 19-41 [facility] Comment on above: Performed By: #### L 100.0100, L501.9520, L500.2500 ####[facility] [address] [place], [address] MCH (RBC) [Entitic mass] 32.8 pg High 27.0-32.0 [facility] Comment on above: Performed By: #### L 100.0100, L501.9520, L500.2500 ####[facility] [address] [place], [address] MCHC (RBC) [Mass/Vol] 33.5 g/dL Normal 32-36 [facility] Comment on above: Performed By: #### L 100.0100, L501.9520, L500.2500 ####[facility] [address] [place], [address] MCV (RBC) [Entitic vol] 97.9 fL High 80-94 [facility] Comment on above: Performed By: #### L 100.0100, L501.9520, L500.2500 ####[facility] [address] [place], [address] Monocytes/100 WBC (Bld) 7.8 % Normal 0-10 [facility] Comment on above: Performed By: #### L 100.0100, L501.9520, L500.2500 ####[facility] [address] [place], [address] Neutrophils/100 WBC (Bld) 64.5 % Normal 47-70 [facility] Comment on above: Performed By: #### L 100.0100, L501.9520, L500.2500 ####[facility] [address] [place], [address] Nucleated RBC (Bld) [#/Vol] 0 10*3/uL Normal 0-5 [facility] Comment on above: Performed By: #### L 100.0100, L501.9520, L500.2500 ####[facility] [address] [place], [address] Platelet mean volume (Bld) [Entitic vol] 9.8 fL Normal 6.2-12.0 [facility] Comment on above: Performed By: #### L 100.0100, L501.9520, L500.2500 ####[facility] [address] [place], [address] Platelets (Bld) [#/Vol] 292 10*3/uL Normal 150-450 [facility] Comment on above: Performed By: #### L 100.0100, L501.9520, L500.2500 ####[facility] [address] [place], [address] RBC (Bld) [#/Vol] 4.33 10*6/uL Low 4.6-6.2 [facility] Comment on above: Performed By: #### L 100.0100, L501.9520, L500.2500 ####[facility] [address] [place], [address] RDW SD 46.1 fl High 35.1-43.9 [facility] Comment on above: Performed By: #### L 100.0100, L501.9520, L500.2500 ####[facility] [address] [place], [address] WBC (Bld) [#/Vol] 5.9 10*3/uL Normal 4.4-11.0 [facility] Comment on above: Performed By: #### L 100.0100, L501.9520, L500.2500 ####[facility] [address] [place], [address] Thyroid Stim Hormone (TSH)on 04-07-2024 TSH 1.730 uIU/mL Normal 0.358-3.740 [facility] Comment on above: Performed By: #### L 100.0100, L501.9520, L500.2500 ####[facility] [address] [place], [address] 12 Lead EKGon 04-06-2024 12 Lead EKG Normal [facility] Basic Metabolic Profile (BMP )on 04-06-2024 BUN/CRE 16.2 RATIO Normal 04-07 [facility] Comment on above: Order Comment: 'TROP ' Serial specimen #1, #2 or #3: 1 Performed By: #### L 500.2500, L100.0100, L501.4020 ####[facility] [address] [place], [address] CA,Total 10.0 mg/dL Normal 8.5-10.1 [facility] Comment on above: Order Comment: 'TROP ' Serial specimen #1, #2 or #3: 1 Performed By: #### L 500.2500, L100.0100, L501.4020 ####[facility] [address] [place], [address] Chloride [Moles/Vol] 104 mmol/L Normal 98-107 [facility] Comment on above: Order Comment: 'TROP ' Serial specimen #1, #2 or #3: 1 Performed By: #### L 500.2500, L100.0100, L501.4020 ####[facility] [address] [place], [address] CO2 [Moles/Vol] 31.0 mmol/L Normal 21.0-32.0 [facility] Comment on above: Order Comment: 'TROP ' Serial specimen #1, #2 or #3: 1 Performed By: #### L 500.2500, L100.0100, L501.4020 ####[facility] [address] [place], [address] Creatinine [Mass/Vol] 1.36 mg/dL High 0.70-1.30 [facility] Comment on above: Order Comment: 'TROP ' Serial specimen #1, #2 or #3: 1 Result Comment: The validity of the calculated GFR GFRAA in patients over70 years has not been determined. Clinical correlation isessential. Performed By: #### L 500.2500, L100.0100, L501.4020 ####[facility] [id number] [place], [address] ECRCL 42.94 ml/min Normal [facility] Comment on above: Order Comment: 'TROP ' Serial specimen #1, #2 or #3: 1 Performed By: #### L 500.2500, L100.0100, L501.4020 ####[facility] [id number] [place], [address] EST GFR - AA 66 mL/min Normal >60 [facility] Comment on above: Order Comment: 'TROP ' Serial specimen #1, #2 or #3: 1 Result Comment: Afri can [place] GFR Calc Performed By: #### L 500.2500, L100.0100, L501.4020 ####[facility] [id number] [place], [address] GAP 3 Low 5-15 [facility] Comment on above: Order Comment: 'TROP ' Serial specimen #1, #2 or #3: 1 Performed By: #### L 500.2500, L100.0100, L501.4020 ####[facility] [address] [place], [address] GFR/1.73 sq M.predicted among non-blacks MDRD (S/P/Bld) [Vol rate/Area] 54 mL/min/{1.73_m2} Low >60 [facility] Comment on above: Order Comment: 'TROP ' Serial specimen #1, #2 or #3: 1 Result Comment: Non- GFR Calc Performed By: #### L 500.2500, L100.0100, L501.4020 ####[facility] [address] [place], [address] Glucose [Mass/Vol] 99 mg/dL Normal 74-106 [facility] Comment on above: Order Comment: 'TROP ' Serial specimen #1, #2 or #3: 1 Performed By: #### L 500.2500, L100.0100, L501.4020 ####[facility] [address] [place], [address] Potassium [Moles/Vol] 4.1 mmol/L Normal 3.5-5.1 [facility] Comment on above: Order Comment: 'TROP ' Serial specimen #1, #2 or #3: 1 Performed By: #### L 500.2500, L100.0100, L501.4020 ####[facility] [address] [place], [address] Sodium [Moles/Vol] 138 mmol/L Normal 136-145 [facility] Comment on above: Order Comment: 'TROP ' Serial specimen #1, #2 or #3: 1 Performed By: #### L 500.2500, L100.0100, L501.4020 ####[facility] [address] [place], [address] Urea nitrogen [Mass/Vol] 22 mg/dL High 7-18 [facility] Comment on above: Order Comment: 'TROP ' Serial specimen #1, #2 or #3: 1 Performed By: #### L 500.2500, L100.0100, L501.4020 ####[facility] [address] [place], [address] Brain/Head without Contrasto n --2023 Brain/Head without Contrast Normal [facility] CBC W/Diff, Automatedon - Absolute Lymph 1.59 X10 3/uL Normal 0.83-4.51 [facility] Comment on above: Performed By: #### L 500.2500, L100.0100, L501.4020 ####[facility] [address] [place], [address] Absolute Neut 4.3 X10 3/uL Normal 2.0-7.7 [facility] Comment on above: Performed By: #### L 500.2500, L100.0100, L501.4020 ####[facility] [address] [place], [address] Basophils/100 WBC (Bld) 1.1 % High 0-1 [facility] Comment on above: Performed By: #### L 500.2500, L100.0100, L501.4020 ####[facility] [address] [place], [address] Eosinophils/100 WBC (Bld) 0.9 % Normal 0-5 [facility] Comment on above: Performed By: #### L 500.2500, L100.0100, L501.4020 ####[facility] [address] [place], [address] Erythrocyte distribution width (RBC) [Ratio] 13.0 % Normal 11.6-14.6 [facility] Comment on above: Performed By: #### L 500.2500, L100.0100, L501.4020 ####[facility] [address] [place], [address] Hematocrit (Bld) [Volume fraction] 49.3 % Normal 40-54 [facility] Comment on above: Performed By: #### L 500.2500, L100.0100, L501.4020 ####[facility] [address] [place], [address] Hemoglobin (Bld) [Mass/Vol] 17.0 g/dL High 13.0-16.5 [facility] Comment on above: Performed By: #### L 500.2500, L100.0100, L501.4020 ####[facility] [address] [place], [address] IG% 0.500 Normal 0.0-0.9 [facility] Comment on above: Result Comment: IG% - Immature Granulocytes (promyelocytes, myelocytes andmetamyelocytes) > 1% indicates that a LEFT SHIFT is Present. Performed By: #### L 500.2500, L100.0100, L501.4020 ####[facility] [address] [place], [address] Lymphocytes/100 WBC (Bld) 24.3 % Normal 19-41 [facility] Comment on above: Performed By: #### L 500.2500, L100.0100, L501.4020 ####[facility] [address] [place], [address] MCH (RBC) [Entitic mass] 33.5 pg High 27.0-32.0 [facility] Comment on above: Performed By: #### L 500.2500, L100.0100, L501.4020 ####[facility] [address] [place], [address] MCHC (RBC) [Mass/Vol] 34.5 g/dL Normal 32-36 [facility] Comment on above: Performed By: #### L 500.2500, L100.0100, L501.4020 ####[facility] [address] [place], [address] MCV (RBC) [Entitic vol] 97.0 fL High 80-94 [facility] Comment on above: Performed By: #### L 500.2500, L100.0100, L501.4020 ####[facility] [address] [place], [address] Monocytes/100 WBC (Bld) 6.9 % Normal 0-10 [facility] Comment on above: Performed By: #### L 500.2500, L100.0100, L501.4020 ####[facility] [address] [place], [address] Neutrophils/100 WBC (Bld) 66.3 % Normal 47-70 [facility] Comment on above: Performed By: #### L 500.2500, L100.0100, L501.4020 ####[facility] [address] [place], [address] Nucleated RBC (Bld) [#/Vol] 0 10*3/uL Normal 0-5 [facility] Comment on above: Performed By: #### L 500.2500, L100.0100, L501.4020 ####[facility] [address] [place], [address] Platelet mean volume (Bld) [Entitic vol] 10.2 fL Normal 6.2-12.0 [facility] Comment on above: Performed By: #### L 500.2500, L100.0100, L501.4020 ####[facility] [address] [place], [address] Platelets (Bld) [#/Vol] 329 10*3/uL Normal 150-450 [facility] Comment on above: Performed By: #### L 500.2500, L100.0100, L501.4020 ####[facility] [address] [place], [address] RBC (Bld) [#/Vol] 5.08 10*6/uL Normal 4.6-6.2 [facility] Comment on above: Performed By: #### L 500.2500, L100.0100, L501.4020 ####[facility] [address] [place], [address] RDW SD 46.7 fl High 35.1-43.9 [facility] Comment on above: Performed By: #### L 500.2500, L100.0100, L501.4020 ####[facility] [address] [place], [address] WBC (Bld) [#/Vol] 6.5 10*3/uL Normal 4.4-11.0 [facility] Comment on above: Performed By: #### L 500.2500, L100.0100, L501.4020 ####[facility] [address] [place], [address] Chest 1 View (Portable)on Chest 1 View (Portable) Normal [facility] Echo Completeon 04-06-2024 Echo Complete Normal [facility] Emergency Department Summary on 04-06-2024 Emergency Department Summary Normal [facility] H AND P Exam - Hospitaliston 04-06-2024 H&P Exam - Hospitalist Normal [facility] L501.4020on 04-06-2024 TROPONIN-I HS 18 pg/mL Normal 3.0-78.0 [facility] Comment on above: Order Comment: 'TROP ' Serial specimen #1, #2 or #3: 2 Result Comment: Plea se Note: New Test Units and Gender Specific Reference Ranges. For more information see Policy Stat Procedure [place] High Sensitivity Troponin (TNIH) and attachments. Performed By: #### L 501.4020 ####[facility] [address] [place], [address] TROPONIN-I HS 9 pg/mL Normal 3.0-78.0 [facility] Comment on above: Order Comment: 'TROP ' Serial specimen #1, #2 or #3: 1 Result Comment: Brant gregorio Note: New Test Units and Gender Specific Reference Ranges. For more information see Policy Stat Procedure [place] High Sensitivity Troponin (TNIH) and attachments. Performed By: #### L 500.2500, L100.0100, L501.4020 ####[facility] [address] [place], [address] Lumbar Spine 2 or 3 Viewson 04-06-2024 Lumbar Spine 2 or 3 Views Normal [facility] Magnesiumon 04-06-2024 Magnesium [Mass/Vol] 2.3 mg/dL Normal 1.6-2.6 [facility] Comment on above: Performed By: #### L 501.5200 ####[facility] [address] [place], [address] Spine Cervical without Contr ason 04-06-2024 Spine Cervical without Contras Normal [facility] Thoracic Spine 2 Viewson Thoracic Spine 2 Views Normal [facility] Urinalysis, Completeon 04-06 EPI,SQUAMOUS 5-10 SEEN Normal 0-5 [facility] Comment on above: Order Comment: CLEAN CATCH Performed By: #### L 400.0001 ####[facility] [address] [place], [address] BACTERIA 0 SEEN Normal None Seen [facility] Comment on above: Order Comment: CLEAN CATCH Performed By: #### L 400.0001 ####[facility] [address] [place], [address] Mucus Ql (Urine sed) 0 SEEN Normal [facility] Comment on above: Order Comment: CLEAN CATCH Performed By: #### L 400.0001 ####[facility] [address] [place], [address] RBC 0 SEEN Normal 0-5 [facility] Comment on above: Order Comment: CLEAN CATCH Performed By: #### L 400.0001 ####[facility] [address] [place], [address] WBC 0 SEEN Normal 0-5 [facility] Comment on above: Order Comment: CLEAN CATCH Performed By: #### L 400.0001 ####[facility] [address] [place], [address] UA DIP, URINE (POC)on 2023 BILIRUBIN UA (POCT) Negative Negative [facility] CLARITY UA (POCT) Cloudy [facility] COLOR UA (POCT) Yellow [facility] GLUCOSE UA (POCT) Negative Negative mg/dL [facility] Hemoglobin Ql (U) Negative Negative [facility] Interpretation and review of laboratory results Abnormal [facility] KETONE UA (POCT) Trace Negative mg/dL [facility] LEUKOCYTES UA (POCT) Trace Abnormal Negative [facility] NITRITE UA (POCT) Positive Abnormal Negative [facility] PH UA (POCT) 6.0 4.5 - 8.0 [facility] Protein Ql (U) 100 mg/dL Abnormal Negative [facility] SPECIFIC GRAVITY UA (POCT) 1.025 1.005 - 1.030 [facility] UROBILINOGEN UA (POCT) 0.2 Malaika l E.U./dL [facility] Location:[facility], [address] [place] [address], [place], [address] [facility] POINT [facility] CARE [facility] Alcohol, Blood (Medical)-Ser umon 02-20-2024 SERUM ETOH < 3.0 Normal [facility] Comment on above: Result Comment: The serum:whole blood ethanol ratio is approximately 1.14and varies slightly with hematocrit.Medical Alcohol reference interval and critical value innon-tolerant individuals; 50 - 100 Impairment 100 Intoxication 100 - 250 Severe Poisoning 250 - 400 Deep/possible fatal coma Performed By: #### L 500.2500, L501.2450, L100.0500, L501.9100, L501.5425 ####[facility] [address] [place], [address] Basic Metabolic Profile (BMP )on 02-20-2024 BUN/CRE 13.3 RATIO Normal 10-20 [facility] Comment on above: Order Comment: 1Y Performed By: #### L 500.2500, L501.2450, L100.0500, L501.9100, L501.5425 ####[facility] [address] [place], [address] CA,Total 10.7 mg/dL High 8.5-10.1 [facility] Comment on above: Order Comment: 1Y Performed By: #### L 500.2500, L501.2450, L100.0500, L501.9100, L501.5425 ####[facility] [address] [place], [address] Chloride [Moles/Vol] 98 mmol/L Normal 98-107 [facility] Comment on above: Order Comment: 1Y Performed By: #### L 500.2500, L501.2450, L100.0500, L501.9100, L501.5425 ####[facility] [address] [place], [address] CO2 [Moles/Vol] 30.0 mmol/L Normal 21.0-32.0 [facility] Comment on above: Order Comment: 1Y Performed By: #### L 500.2500, L501.2450, L100.0500, L501.9100, L501.5425 ####[facility] [address] [place], [address] Creatinine [Mass/Vol] 1.35 mg/dL High 0.70-1.30 [facility] Comment on above: Order Comment: 1Y Result Comment: The validity of the calculated GFR GFRAA in patients over70 years has not been determined. Clinical correlation isessential. Performed By: #### L 500.2500, L501.2450, L100.0500, L501.9100, L501.5425 ####[facility] [address] [place], [address] EST GFR - AA 66 mL/min Normal >60 [facility] Comment on above: Order Comment: 1Y Result Comment: Afri can [place] GFR Calc Performed By: #### L 500.2500, L501.2450, L100.0500, L501.9100, L501.5425 ####[facility] [address] [place], [address] GAP 9 Normal 5-15 [facility] Comment on above: Order Comment: 1Y Performed By: #### L 500.2500, L501.2450, L100.0500, L501.9100, L501.5425 ####[facility] [address] [place], [address] GFR/1.73 sq M.predicted among non-blacks MDRD (S/P/Bld) [Vol rate/Area] 55 mL/min/{1.73_m2} Low >60 [facility] Comment on above: Order Comment: 1Y Result Comment: Non- GFR Calc Performed By: #### L 500.2500, L501.2450, L100.0500, L501.9100, L501.5425 ####[facility] [address] [place], [address] Glucose [Mass/Vol] 84 mg/dL Normal 74-106 [facility] Comment on above: Order Comment: 1Y Performed By: #### L 500.2500, L501.2450, L100.0500, L501.9100, L501.5425 ####[facility] [address] [place], [address] Potassium [Moles/Vol] 4.3 mmol/L Normal 3.5-5.1 [facility] Comment on above: Order Comment: 1Y Performed By: #### L 500.2500, L501.2450, L100.0500, L501.9100, L501.5425 ####[facility] [address] [place], [address] Sodium [Moles/Vol] 137 mmol/L Normal 136-145 [facility] Comment on above: Order Comment: 1Y Performed By: #### L 500.2500, L501.2450, L100.0500, L501.9100, L501.5425 ####[facility] [address] [place], [address] Urea nitrogen [Mass/Vol] 18 mg/dL Normal 7-18 [facility] Comment on above: Order Comment: 1Y Performed By: #### L 500.2500, L501.2450, L100.0500, L501.9100, L501.5425 ####[facility] [address] [place], [address] Bedside Glucoseon 02-20-2024 FINGERSTICK GLU 83 mg/dL Normal 74-106 [facility] Comment on above: Result Comment: RONA LO OF PATIENT CARE PER NURSING PROTOCOL Performed By: #### L 501.080 ####[facility] [address] [place], [address] Brain/Head without Contrasto n 02-20-2024 Brain/Head without Contrast Normal [facility] CBC-Complete Blood Cnt No Di ffon 02-20-2024 Erythrocyte distribution width (RBC) [Ratio] 13.2 % Normal 11.6-14.6 [facility] Comment on above: Performed By: #### L 500.2500, L501.2450, L100.0500, L501.9100, L501.5425 ####[facility] [address] [place], [address] Hematocrit (Bld) [Volume fraction] 51.8 % Normal 40-54 [facility] Comment on above: Performed By: #### L 500.2500, L501.2450, L100.0500, L501.9100, L501.5425 ####[facility] [address] [place], [address] Hemoglobin (Bld) [Mass/Vol] 17.1 g/dL High 13.0-16.5 [facility] Comment on above: Performed By: #### L 500.2500, L501.2450, L100.0500, L501.9100, L501.5425 ####[facility] [address] [place], [address] MCH (RBC) [Entitic mass] 32.0 pg Normal 27.0-32.0 [facility] Comment on above: Performed By: #### L 500.2500, L501.2450, L100.0500, L501.9100, L501.5425 ####[facility] [address] [place], [address] MCHC (RBC) [Mass/Vol] 33.0 g/dL Normal 32-36 [facility] Comment on above: Performed By: #### L 500.2500, L501.2450, L100.0500, L501.9100, L501.5425 ####[facility] [address] [place], [address] MCV (RBC) [Entitic vol] 96.8 fL High 80-94 [facility] Comment on above: Performed By: #### L 500.2500, L501.2450, L100.0500, L501.9100, L501.5425 ####[facility] [address] [place], [address] Platelet mean volume (Bld) [Entitic vol] 9.8 fL Normal 6.2-12.0 [facility] Comment on above: Performed By: #### L 500.2500, L501.2450, L100.0500, L501.9100, L501.5425 ####[facility] [address] [place], [address] Platelets (Bld) [#/Vol] 307 10*3/uL Normal 150-450 [facility] Comment on above: Performed By: #### L 500.2500, L501.2450, L100.0500, L501.9100, L501.5425 ####[facility] [address] [place], [address] RBC (Bld) [#/Vol] 5.35 10*6/uL Normal 4.6-6.2 [facility] Comment on above: Performed By: #### L 500.2500, L501.2450, L100.0500, L501.9100, L501.5425 ####[facility] [address] [place], [address] RDW SD 47.1 fl High 35.1-43.9 [facility] Comment on above: Performed By: #### L 500.2500, L501.2450, L100.0500, L501.9100, L501.5425 ####[facility] [address] [place], [address] WBC (Bld) [#/Vol] 6.6 10*3/uL Normal 4.4-11.0 [facility] Comment on above: Performed By: #### L 500.2500, L501.2450, L100.0500, L501.9100, L501.5425 ####[facility] [address] [place], [address] Chest 1 View (Portable)on Chest 1 View (Portable) Normal [facility] Emergency Department Summary on 02-20-2024 Emergency Department Summary Normal [facility] Femur Min 2 Viewson 02-20-20 24 Femur Min 2 Views Normal [facility] Knee 1 or 2 Viewson 02-20-20 24 Knee 1 or 2 Views Normal [facility] L501.4020on 02-20-2024 TROPONIN-I HS 18 pg/mL Normal 3.0-78.0 [facility] Comment on above: Result Comment: Brant gregorio Note: New Test Units and Gender Specific Reference Ranges. For more information see Policy Stat Procedure [place] High Sensitivity Troponin (TNIH) and attachments. Performed By: #### L 501.4020 ####[facility] [address] [place], [address] L501.5425on 02-20-2024 TROPONIN-I HS 14 pg/mL Normal 3.0-78.0 [facility] Comment on above: Order Comment: 1Y Result Comment: Brant gregorio Note: New Test Units and Gender Specific Reference Ranges. For more information see Policy Stat Procedure [place] High Sensitivity Troponin (TNIH) and attachments. Performed By: #### L 500.2500, L501.2450, L100.0500, L501.9100, L501.5425 ####[facility] [address] [place], [address] Lipaseon 02-20-2024 Lipase [Catalytic activity/Vol] 23 U/L Normal 13-75 [facility] Comment on above: Order Comment: 1Y Result Comment: Brant gregorio note:LIPASE revised reference range effective 22.New Lipase methodology. Expected to produce lower valuesthan the previous assay method.NEW Reference Range: 13 - 75 U/L Performed By: #### L 500.2500, L501.2450, L100.0500, L501.9100, L501.5425 ####[facility] [address] [place], [address] Spine Cervical without Contr ason 02-20-2024 Spine Cervical without Contras Normal [facility] Spine Thoracic without Contr ason 02-20-2024 Spine Thoracic without Contras Normal [facility] Urinalysis, Completeon 02-19 EPI,RENAL 0-5 SEEN Normal 0-5 [facility] Comment on above: Order Comment: COLLE CTOR TO SPECIFY Performed By: #### L 400.0001 ####[facility] [address] [place], [address] EPI,SQUAMOUS 0-5 SEEN Normal 0-5 [facility] Comment on above: Order Comment: COLLE CTOR TO SPECIFY Performed By: #### L 400.0001 ####[facility] [address] [place], [address] BACTERIA 3+ /hpf Normal None Seen [facility] Comment on above: Order Comment: COLLE CTOR TO SPECIFY Performed By: #### L 400.0001 ####[facility] [address] [place], [address] WBC 0-5 SEEN Normal 0-5 [facility] Comment on above: Order Comment: MEHREEN CTOR TO SPECIFY Performed By: #### L 400.0001 ####[facility] [address] [place], [address] Mucus Ql (Urine sed) 0 SEEN Normal [facility] Comment on above: Order Comment: MEHREEN CTOR TO SPECIFY Performed By: #### L 400.0001 ####[facility] [address] [place], [address] RBC 0 SEEN Normal 0-5 [facility] Comment on above: Order Comment: MEHREEN CTOR TO SPECIFY Performed By: #### L 400.0001 ####[facility] [address] [place], [address] Urine Drug Screen (VISTA)on 02-20-2024 AMPHETAMINES Negative Normal <1000 ng/mL [facility] Comment on above: Performed By: #### L 505.5000 ####[facility] [address] [facility] [address] BARBITIURATES Negative Normal < 200 ng/mL [facility] Comment on above: Performed By: #### L 505.5000 ####[facility] [address] [facility] [address] BENZODIAZIPINE Negative Normal < 200 ng/mL [facility] Comment on above: Performed By: #### L 505.5000 ####[facility] [address] [place], [address] COCAINE Negative Normal < 300 ng/mL [facility] Comment on above: Performed By: #### L 505.5000 ####[facility] [address] [place], [address] ECSTACY Negative Normal < 500 ng/mL [facility] Comment on above: Performed By: #### L 505.5000 ####[facility] [address] [place], [address] METHADONE Negative Normal < 300 ng/mL [facility] Comment on above: Performed By: #### L 505.5000 ####[facility] [address] [place], [address] OPIATES Negative Normal < 300 ng/mL [facility] Comment on above: Performed By: #### L 505.5000 ####[facility] [address] [place], [address] PCP Negative Normal < 25 ng/mL [facility] Comment on above: Performed By: #### L 505.5000 ####[facility] [address] [place], [address] THC Negative Normal < 50 ng/mL [facility] Comment on above: Performed By: #### L 505.5000 ####[facility] [address] [place] [id number] VISTA UDS PH 4 Normal [facility] Comment on above: Performed By: #### L 505.5000 ####[facility] [address] [place], [address] Emergency Department Summary on 01-03-2024 Emergency Department Summary Normal [facility] Tibia Fibula 2 Viewson 01-02 Tibia Fibula 2 Views Normal [facility] Absolute lymphocyte countOrd ered By: Brody Maynard on 07-31-2023 Lymphocytes Auto (Unsp spec) [#/Vol] 0.39 10*3/uL 0.83-4.51 [facility] Automated lymphocyte count a s percentage of total leukocytesOrdered By: Brody Maynard on 07-31-2023 Lymphocytes/100 WBC Auto (Unsp spec) 7.1 % 19-41 [facility] Basophil percentageOrdered B y: Brody Maynard on 07-31-2023 Basophil percentage 12.6 g/dL 13.0-16.5 [facility] Basophil percentage 113 mg/dL 74-106 [facility] Basophil percentage 139 mmol/L 136-145 [facility] Basophil percentage 4.0 mmol/L 3.5-5.1 [facility] Basophil percentage 102 mmol/L 98-107 [facility] Basophils (Bld) [#/Vol] 5.5 10*3/uL 4.4-11.0 [facility] Basophils (Bld) [#/Vol] 4.7 10*3/uL 2.0-7.7 [facility] Basophils/100 WBC (Bld) 85.0 % 47-70 [facility] Basophils/100 WBC (Bld) 7.1 % 0-10 [facility] Basophils/100 WBC (Bld) 0.0 % 0-5 [facility] Basophils/100 WBC (Bld) 0.4 % 0-1 [facility] Determination of erythrocyte mean corpuscular volume (MCV)Ordered By: Brody Maynard on 07-31-2023 MCV (RBC) [Entitic vol] 98.4 fL 80-94 [facility] Erythrocyte distribution wid th ratioOrdered By: Brody Maynard on 07-31-2023 Erythrocyte distribution width (RBC) [Ratio] 13.2 % 11.6-14.6 [facility] Erythrocyte distribution wid th standard deviationOrdered By: Brody Maynard on 07-31-2023 Erythrocyte distribution width (RBC) [Entitic vol] 47.2 fL 35.1-43.9 [facility] Hematocrit Auto (Bld) [Volum e fraction]Ordered By: Brody Maynard on 07-31-2023 Hematocrit (Bld) [Volume fraction] 37.9 % 40-54 [facility] Immature granulocytes/100 WB C Auto (Bld)Ordered By: Brody Maynard on 07-31-2023 Immature granulocytes/100 WBC (Bld) 0.400 % 0.0-0.9 [facility] No Panel InformationOrdered By: Brody Maynard on 07-31-2023 32.7 pg 27.0-32.0 [facility] 33.2 g/dL 32-36 [facility] 284 K/mm3 150-450 [facility] 10.1 fl 6.2-12.0 [facility] 0 % 0-5 [facility] 77 mL/min >60 [facility] 93 mL/min >60 [facility] 60.90 ml/min [facility] 22.8 RATIO 10-20 [facility] 29.0 mmol/L 21.0-32.0 [facility] RBC Auto (Bld) [#/Vol]Ordere d By: Brody Maynard on 07-31-2023 RBC (Bld) [#/Vol] 3.85 10*6/uL 4.6-6.2 [facility] Serum or plasma calcium luis urement (mass/volume)Ordered By: Brody Maynard on 07-31-2023 Calcium [Mass/Vol] 8.6 mg/dL 8.5-10.1 [facility] Serum or plasma creatinine m easurement (mass/volume)Ordered By: Brody Maynard on 07-31-2023 Creatinine [Mass/Vol] 1.01 mg/dL 0.70-1.30 [facility] Serum or plasma urea nitroge n measurement (mass/volume)Ordered By: Brody Maynard on 07-31-2023 Urea nitrogen [Mass/Vol] 23 mg/dL 7-18 [facility] Thin prep Papanicolaou smear with manual screeningOrdered By: Brody Maynard on 07-31-2023 Thin prep Papanicolaou smear with manual screening 8 5-15 [facility] Absolute lymphocyte countOrd ered By: Андрей Ng on 07-30-2023 Lymphocytes Auto (Unsp spec) [#/Vol] 0.60 10*3/uL 0.83-4.51 [facility] Automated lymphocyte count a s percentage of total leukocytesOrdered By: Андрей Ng on 07-30-2023 Lymphocytes/100 WBC Auto (Unsp spec) 10.9 % 19-41 [facility] Base excessOrdered By: ED NH OVIDER on 07-30-2023 Base excess Calc (BldV) [Moles/Vol] 2 mmol/L -1.0-3.5 [facility] Basophil percentageOrdered B y: Андрей Ng on 07-30-2023 Basophil percentage 0 SEEN /hpf 0-5 [facility] Basophil percentage 13.3 g/dL 13.0-16.5 [facility] Basophil percentage 114 mg/dL 74-106 [facility] Basophil percentage 138 mmol/L 136-145 [facility] Basophil percentage 4.2 mmol/L 3.5-5.1 [facility] Basophil percentage 102 mmol/L 98-107 [facility] Basophils (Bld) [#/Vol] 5.5 10*3/uL 4.4-11.0 [facility] Basophils (Bld) [#/Vol] 4.2 10*3/uL 2.0-7.7 [facility] Basophils/100 WBC (Bld) 76.5 % 47-70 [facility] Basophils/100 WBC (Bld) 10.7 % 0-10 [facility] Basophils/100 WBC (Bld) 0.5 % 0-5 [facility] Basophils/100 WBC (Bld) 0.9 % 0-1 [facility] Bilirubin Test strip Ql (U)O rdered By: Андрей Ng on 07-30-2023 Bilirubin Ql (U) Negative Negative [facility] CO2 (BldV) [Moles/Vol]Ordere d By: ED PROVIDER on 07-30-2023 CO2 [Moles/Vol] 29 mmol/L 23-33 [facility] Determination of erythrocyte mean corpuscular volume (MCV)Ordered By: Андрей Ng on 07-30-2023 MCV (RBC) [Entitic vol] 99.3 fL 80-94 [facility] Erythrocyte distribution wid th ratioOrdered By: Андрей Ng on 07-30-2023 Erythrocyte distribution width (RBC) [Ratio] 13.2 % 11.6-14.6 [facility] Erythrocyte distribution wid th standard deviationOrdered By: Андрей Ng on 07-30-2023 Erythrocyte distribution width (RBC) [Entitic vol] 48.3 fL 35.1-43.9 [facility] Hematocrit Auto (Bld) [Volum e fraction]Ordered By: Андрей Ng on 07-30-2023 Hematocrit (Bld) [Volume fraction] 40.4 % 40-54 [facility] Immature granulocytes/100 WB C Auto (Bld)Ordered By: Андрей Ng on 07-30-2023 Immature granulocytes/100 WBC (Bld) 0.500 % 0.0-0.9 [facility] Ketones Test strip Ql (U)Ord ered By: Андрей Ng on 07-30-2023 Ketones Ql (U) Negative Negative [facility] Mucus LM Ql (Urine sed)Order ed By: Андрей Ng on 07-30-2023 Mucus Ql (Urine sed) 0 SEEN /hpf [facility] Nitrite Test strip Ql (U)Ord ered By: Андрей Ng on 07-30-2023 Nitrite Ql (U) Negative Negative [facility] No Panel InformationOrdered By: Андрей Ng on 07-30-2023 0 SEEN /hpf 0-5 [facility] Influenzae A [facility] 32.7 pg 27.0-32.0 [facility] 32.9 g/dL 32-36 [facility] 262 K/mm3 150-450 [facility] 9.4 fl 6.2-12.0 [facility] 0 % 0-5 [facility] 67 mL/min >60 [facility] 81 mL/min >60 [facility] 55.00 ml/min [facility] 22.8 RATIO 10-20 [facility] 15 pg/mL 3.0-78.0 [facility] 29.0 mmol/L 21.0-32.0 [facility] 218.8 pg/mL 0-100 [facility] No Panel InformationOrdered By: ED PROVIDER on 07-30-2023 LASHAE [facility] Not entered [facility] Cannula [facility] 3.0 [facility] 28 mmol/L 22-26 [facility] 69 % 50-70 [facility] PCO2 venousOrdered By: ED NH OVIDER on 07-30-2023 CO2 (BldV) [Partial pressure] 48.6 mm[Hg] 41-51 [facility] PO2 venousOrdered By: ED PRO VIDER on 07-30-2023 Oxygen (BldV) [Partial pressure] 38 mm[Hg] 25-40 [facility] Protein Test strip Ql (U)Ord ered By: Андрей Ng on 07-30-2023 Protein Ql (U) 30 mg/dl Negative [facility] RBC Auto (Bld) [#/Vol]Ordere d By: Андрей Ng on 07-30-2023 RBC (Bld) [#/Vol] 4.07 10*6/uL 4.6-6.2 [facility] Serum or plasma calcium luis urement (mass/volume)Ordered By: Андрей Ng on 07-30-2023 Calcium [Mass/Vol] 9.2 mg/dL 8.5-10.1 [facility] Serum or plasma creatinine m easurement (mass/volume)Ordered By: Андрей Ng on 07-30-2023 Creatinine [Mass/Vol] 1.14 mg/dL 0.70-1.30 [facility] Serum or plasma urea nitroge n measurement (mass/volume)Ordered By: Андрей Ng on 07-30-2023 Urea nitrogen [Mass/Vol] 26 mg/dL 7-18 [facility] Squamous epithelial cells de tection in urine sediment by light microscopyOrdered By: Андрей Ng on 07-30-2023 Epithelial cells.squamous LM Ql (Urine sed) 0 SEEN /hpf 0-5 [facility] Thin prep Papanicolaou smear with manual screeningOrdered By: Андрей Ng on 07-30-2023 Thin prep Papanicolaou smear with manual screening 7 5-15 [facility] Urine blood detectionOrdered By: Андрей Ng on 07-30-2023 RBC Ql (U) 10 /ul Negative [facility] Urine clarityOrdered By: Italia Ng on 07-30-2023 Clarity (U) Clear Clear [facility] Urine color determinationOrd ered By: Андрей Ng on 07-30-2023 Color (U) Yellow Yellow [facility] Urine glucose detectionOrder ed By: Андрей Ng on 07-30-2023 Glucose Ql (U) Normal mg/dl Normal [facility] Urine leukocyte esterase det ection by dipstickOrdered By: Андрей Ng on 07-30-2023 Leukocyte esterase Test strip Ql (U) Negative Negative [facility] Urine pHOrdered By: Андрей garland on 07-30-2023 pH (U) 7.0 [pH] 5.0 - 8.0 [facility] Urine sediment bacteria coun t by microscopy (number/high power field)Ordered By: Андрей Ng on 07-30-2023 Bacteria LM.HPF (Urine sed) [#/Area] 0 /[HPF] None Seen [facility] Urine specific gravity measu rementOrdered By: Андрей Ng on 07-30-2023 Specific gravity (U) [Rel density] 1.010 1.002-1.030 [facility] Urine urobilinogen measureme ntOrdered By: Андрей Ng on 07-30-2023 Urobilinogen Ql (U) Normal mg/dl Normal [facility] Venous blood pH measurementO rdered By: ED PROVIDER on 07-30-2023 pH (BldV) 7.36 [pH] 7.32-7.42 [facility] Basophil percentageOrdered B y: Андрей Cooley on 07-27-2023 Basophil percentage 12.8 g/dL 13.0-16.5 [facility] Basophil percentage 103 mg/dL 74-106 [facility] Basophil percentage 141 mmol/L 136-145 [facility] Basophil percentage 3.7 mmol/L 3.5-5.1 [facility] Basophil percentage 110 mmol/L 98-107 [facility] Basophils (Bld) [#/Vol] 6.8 10*3/uL 4.4-11.0 [facility] Determination of erythrocyte mean corpuscular volume (MCV)Ordered By: Андрей Cooley on 07-27-2023 MCV (RBC) [Entitic vol] 98.5 fL 80-94 [facility] Erythrocyte distribution wid th ratioOrdered By: Андрей Cooley on 07-27-2023 Erythrocyte distribution width (RBC) [Ratio] 13.1 % 11.6-14.6 [facility] Erythrocyte distribution wid th standard deviationOrdered By: Андрей Cooley on 07-27-2023 Erythrocyte distribution width (RBC) [Entitic vol] 46.7 fL 35.1-43.9 [facility] Hematocrit Auto (Bld) [Volum e fraction]Ordered By: Андрей Cooley on 07-27-2023 Hematocrit (Bld) [Volume fraction] 38.9 % 40-54 [facility] No Panel InformationOrdered By: Андрей Cooley on 07-27-2023 32.4 pg 27.0-32.0 [facility] 32.9 g/dL 32-36 [facility] 246 K/mm3 150-450 [facility] 10.1 fl 6.2-12.0 [facility] 56 mL/min >60 [facility] 68 mL/min >60 [facility] 26.5 RATIO 10-20 [facility] 29.0 mmol/L 21.0-32.0 [facility] RBC Auto (Bld) [#/Vol]Ordere d By: Андрей Cooley on 07-27-2023 RBC (Bld) [#/Vol] 3.95 10*6/uL 4.6-6.2 [facility] Serum or plasma calcium luis urement (mass/volume)Ordered By: Андрей Cooley on 07-27-2023 Calcium [Mass/Vol] 9.5 mg/dL 8.5-10.1 [facility] Serum or plasma creatinine m easurement (mass/volume)Ordered By: Андрей Cooley on 07-27-2023 Creatinine [Mass/Vol] 1.32 mg/dL 0.70-1.30 [facility] Serum or plasma urea nitroge n measurement (mass/volume)Ordered By: Андрей oColey on 07-27-2023 Urea nitrogen [Mass/Vol] 35 mg/dL 7-18 [facility] Thin prep Papanicolaou smear with manual screeningOrdered By: Андрей Cooley on 07-27-2023 Thin prep Papanicolaou smear with manual screening 2 5-15 [facility] Absolute lymphocyte countOrd ered By: Андрей Cooley on 07-25-2023 Lymphocytes Auto (Unsp spec) [#/Vol] 1.22 10*3/uL 0.83-4.51 [facility] Automated lymphocyte count a s percentage of total leukocytesOrdered By: Андрей Cooley on 07-25-2023 Lymphocytes/100 WBC Auto (Unsp spec) 17.6 % 19-41 [facility] Basophil percentageOrdered B y: Андрей Cooley on 07-25-2023 Basophil percentage 14.3 g/dL 13.0-16.5 [facility] Basophil percentage 126 mg/dL 74-106 [facility] Basophil percentage 138 mmol/L 136-145 [facility] Basophil percentage 3.5 mmol/L 3.5-5.1 [facility] Basophil percentage 105 mmol/L 98-107 [facility] Basophils (Bld) [#/Vol] 6.9 10*3/uL 4.4-11.0 [facility] Basophils (Bld) [#/Vol] 4.9 10*3/uL 2.0-7.7 [facility] Basophils/100 WBC (Bld) 70.5 % 47-70 [facility] Basophils/100 WBC (Bld) 10.0 % 0-10 [facility] Basophils/100 WBC (Bld) 0.7 % 0-5 [facility] Basophils/100 WBC (Bld) 0.9 % 0-1 [facility] Determination of erythrocyte mean corpuscular volume (MCV)Ordered By: Андрей Cooley on 07-25-2023 MCV (RBC) [Entitic vol] 95.2 fL 80-94 [facility] Erythrocyte distribution wid th ratioOrdered By: Андрей Cooley on 07-25-2023 Erythrocyte distribution width (RBC) [Ratio] 12.7 % 11.6-14.6 [facility] Erythrocyte distribution wid th standard deviationOrdered By: Андрей Cooley on 07-25-2023 Erythrocyte distribution width (RBC) [Entitic vol] 44.9 fL 35.1-43.9 [facility] Hematocrit Auto (Bld) [Volum e fraction]Ordered By: Андрей Cooley on 07-25-2023 Hematocrit (Bld) [Volume fraction] 41.9 % 40-54 [facility] Immature granulocytes/100 WB C Auto (Bld)Ordered By: Андрей Cooley on 02-06-2024 Immature granulocytes/100 WBC (Bld) 0.300 % 0.0-0.9 [facility] No Panel InformationOrdered By: Андрей Cooley on 07-25-2023 32.5 pg 27.0-32.0 [facility] 34.1 g/dL 32-36 [facility] 245 K/mm3 150-450 [facility] 9.7 fl 6.2-12.0 [facility] 0 % 0-5 [facility] 62 mL/min >60 [facility] 75 mL/min >60 [facility] 39.28 ml/min [facility] 13.2 RATIO 10-20 [facility] 25.0 mmol/L 21.0-32.0 [facility] RBC Auto (Bld) [#/Vol]Ordere d By: Андрей Cooley on 07-25-2023 RBC (Bld) [#/Vol] 4.40 10*6/uL 4.6-6.2 [facility] Serum or plasma calcium luis urement (mass/volume)Ordered By: Андрей Cooley on 07-25-2023 Calcium [Mass/Vol] 9.3 mg/dL 8.5-10.1 [facility] Serum or plasma creatinine m easurement (mass/volume)Ordered By: Андрей Cooley on 07-25-2023 Creatinine [Mass/Vol] 1.21 mg/dL 0.70-1.30 [facility] Serum or plasma urea nitroge n measurement (mass/volume)Ordered By: Андрей Cooley on 07-25-2023 Urea nitrogen [Mass/Vol] 16 mg/dL 7-18 [facility] Thin prep Papanicolaou smear with manual screeningOrdered By: Андрей Cooley on 07-25-2023 Thin prep Papanicolaou smear with manual screening 8 5-15 [facility] Absolute lymphocyte countOrd ered By: Raul Melchor on 07-24-2023 Lymphocytes Auto (Unsp spec) [#/Vol] 1.14 10*3/uL 0.83-4.51 [facility] Automated lymphocyte count a s percentage of total leukocytesOrdered By: Raul Melchor on 07-24-2023 Lymphocytes/100 WBC Auto (Unsp spec) 16.0 % 19-41 [facility] Basophil percentageOrdered B y: Raul Melchor on 07-24-2023 Basophils/100 WBC (Bld) 1.0 % 0-1 [facility] Chloride [Moles/Vol] 103 mmol/L 98-107 [facility] Eosinophils/100 WBC (Bld) 1.1 % 0-5 [facility] Glucose [Mass/Vol] 134 mg/dL 74-106 [facility] Comment on above: Fasting Glucose resu lt greater than or equal to 126 mg/dL suggests DIABETES MELLITUS per A.D.A. criteria. Hemoglobin (Bld) [Mass/Vol] 16.2 g/dL 13.0-16.5 [facility] Monocytes/100 WBC (Bld) 7.3 % 0-10 [facility] Neutrophils (Bld) [#/Vol] 5.3 10*3/uL 2.0-7.7 [facility] Neutrophils/100 WBC (Bld) 74.0 % 47-70 [facility] Potassium [Moles/Vol] 3.8 mmol/L 3.5-5.1 [facility] Comment on above: Moderate Hemolysis, Result may be falsely increased. Sodium [Moles/Vol] 139 mmol/L 136-145 [facility] WBC (Bld) [#/Vol] 7.1 10*3/uL 4.4-11.0 [facility] Determination of erythrocyte mean corpuscular volume (MCV)Ordered By: Raul Melcohr on 07-24-2023 MCV (RBC) [Entitic vol] 94.8 fL 80-94 [facility] Erythrocyte distribution wid th ratioOrdered By: Raul Melchor on 07-24-2023 Erythrocyte distribution width (RBC) [Ratio] 12.8 % 11.6-14.6 [facility] Erythrocyte distribution wid th standard deviationOrdered By: Raul Melchor on 07-24-2023 Erythrocyte distribution width (RBC) [Entitic vol] 44.3 fL 35.1-43.9 [facility] Hematocrit Auto (Bld) [Volum e fraction]Ordered By: Raul Melchor on 07-24-2023 Hematocrit (Bld) [Volume fraction] 47.4 % 40-54 [facility] Immature granulocytes/100 WB C Auto (Bld)Ordered By: Raul Melchor on 07-24-2023 Immature granulocytes/100 WBC (Bld) 0.600 % 0.0-0.9 [facility] Comment on above: IG% - Immature Granu locytes (promyelocytes, myelocytes and metamyelocytes) > 1% indicates that a LEFT SHIFT is Present. Laboratory - Chemistry and C hemistry - challengeOrdered By: Raul Melchor on 07-24-2023 CO2 [Moles/Vol] 28.0 mmol/L 21.0-32.0 [facility] Urea nitrogen/Creatinine [Mass ratio] 14.1 mg/mg 10-20 [facility] Laboratory - Hematology and Cell countsOrdered By: Raul Melchor on 07-24-2023 MCH (RBC) [Entitic mass] 32.4 pg 27.0-32.0 [facility] MCHC (RBC) [Mass/Vol] 34.2 g/dL 32-36 [facility] Nucleated RBC/100 WBC (Bld) [Ratio] 0 % 0-5 [facility] Platelets (Bld) [#/Vol] 285 10*3/uL 150-450 [facility] No Panel InformationOrdered By: Raul Melchor on 07-24-2023 Estimated Creatinine Clearance Calc 48.70 ml/min [facility] Estimated GFR (MDRD) Amer 71 mL/min >60 [facility] Comment on above: GFR Calc Estimated GFR (MDRD) Non-Af Amer 58 mL/min >60 [facility] Comment on above: Non- GFR Calc Platelet mean volume Ye-Ec ker (Bld) [Entitic vol]Ordered By: Raul Melchor on 07-24-2023 Platelet mean volume (Bld) [Entitic vol] 9.8 fL 6.2-12.0 [facility] RBC Auto (Bld) [#/Vol]Ordere d By: Raul Melchor on 07-24-2023 RBC (Bld) [#/Vol] 5.00 10*6/uL 4.6-6.2 [facility] Serum or plasma calcium luis urement (mass/volume)Ordered By: Raul Melchor on 07-24-2023 Calcium [Mass/Vol] 9.8 mg/dL 8.5-10.1 [facility] Serum or plasma creatinine m easurement (mass/volume)Ordered By: Raul Melchor on 07-24-2023 Creatinine [Mass/Vol] 1.28 mg/dL 0.70-1.30 [facility] Comment on above: The validity of the calculated GFR & GFRAA in patients over 70 years has not been determined. Clinical correlation is essential. Serum or plasma urea nitroge n measurement (mass/volume)Ordered By: Raul Melchor on 07-24-2023 Urea nitrogen [Mass/Vol] 18 mg/dL 01-03 [facility] Thin prep Papanicolaou smear with manual screeningOrdered By: Raul Melchor on 07-24-2023 Thin prep Papanicolaou smear with manual screening 10-31 [facility] UAon 07-10-2023 Color (U) Yellow Normal [facility] ([place]) Comment on above: Performed By: #### U A #### [address] [address] Glucose (U) [Mass/Vol] Negative Normal Negative [facility] ([place]) Comment on above: Performed By: #### U A #### [address] [address] Ketones Ql (U) Negative Normal Neg-Trace [facility] ([place]) Comment on above: Performed By: #### U A #### [address] [address] UA Appear Clear Normal Clear [facility] ([place]) Comment on above: Performed By: #### U A #### [address] [address] UA Blood Negative Normal Neg-Trace [facility] ([place]) Comment on above: Performed By: #### U A #### [address] [address] UA Leuk Est Negative Normal Negative [facility] ([place]) Comment on above: Performed By: #### U A #### [address] [address] UA Nitrite Negative Normal Negative [facility] ([place]) Comment on above: Performed By: #### U A #### [address] [address] UA pH 5.5 Normal 5.0 - 8.0 [facility] ([place]) Comment on above: Performed By: #### U A #### [address] [address] UA Protein 30 mg/dL Normal Negative [facility] ([place] Comment on above: Performed By: #### U A #### [address] [address] UA Spec Grav 1.020 Normal 1.006-1.029 [facility] ([place]) Comment on above: Performed By: #### U A #### [place] [id number] UA Specimen Type Void Normal [facility] ([place] Comment on above: Performed By: #### U A #### [address] [address] UA Urobilinogen 0.2 E.U./dL Normal 0.2-1.0 [facility] ([place]) Comment on above: Performed By: #### U A #### [address] [address] Urobilinogen (U) [Mass/Vol] Negative Normal Neg-Trace [facility] ([place]) Comment on above: Performed By: #### U A #### [address] [address] Absolute lymphocyte countOrd ered By: Daija Morton on 06-14-2023 Lymphocytes Auto (Unsp spec) [#/Vol] 1.09 10*3/uL 0.83-4.51 [facility] Basophil percentageOrdered B y: Daija Morton on 06-14-2023 Basophil percentage 108 mg/dL 74-106 [facility] Basophil percentage 139 mmol/L 136-145 [facility] Basophil percentage 4.2 mmol/L 3.5-5.1 [facility] Basophil percentage 104 mmol/L 98-107 [facility] Basophils (Bld) [#/Vol] 6.5 10*3/uL 4.4-11.0 [facility] Basophils (Bld) [#/Vol] 4.7 10*3/uL 2.0-7.7 [facility] Basophils/100 WBC (Bld) 1.4 % 0-1 [facility] Basophils/100 WBC (Bld) 72.2 % 47-70 [facility] Basophils/100 WBC (Bld) 2.0 % 0-5 [facility] Chloride [Moles/Vol] 104 mmol/L 98-107 [facility] Eosinophils/100 WBC (Bld) 2.0 % 0-5 [facility] Glucose [Mass/Vol] 108 mg/dL 74-106 [facility] Comment on above: Fasting Glucose resu lt from 100 to 125 mg/dL suggests IMPAIRED HOMEOSTASIS per A.D.A. criteria. Neutrophils (Bld) [#/Vol] 4.7 10*3/uL 2.0-7.7 [facility] Neutrophils/100 WBC (Bld) 72.2 % 47-70 [facility] Potassium [Moles/Vol] 4.2 mmol/L 3.5-5.1 [facility] Sodium [Moles/Vol] 139 mmol/L 136-145 [facility] WBC (Bld) [#/Vol] 6.5 10*3/uL 4.4-11.0 [facility] Blood erythrocytes count (nu mber/volume)Ordered By: Daija Morton on 06-14-2023 RBC (Bld) [#/Vol] 4.73 10*6/uL 4.6-6.2 [facility] Blood hemoglobin measurement (mass/volume)Ordered By: Daija Morton on 06-14-2023 Hemoglobin (Bld) [Mass/Vol] 15.8 g/dL 13.0-16.5 [facility] Blood lymphocytes/100 leukoc ytesOrdered By: Daija Morton on 06-14-2023 Lymphocytes/100 WBC (Bld) 16.8 % 19-41 [facility] Blood monocytes/100 leukocyt esOrdered By: Daija Morton on 06-14-2023 Monocytes/100 WBC (Bld) 7.1 % 0-10 [facility] Blood platelet mean volumeOr dered By: Daija Morton on 06-14-2023 Platelet mean volume (Bld) [Entitic vol] 9.9 fL 6.2-12.0 [facility] Determination of erythrocyte mean corpuscular volume (MCV)Ordered By: Daija Morton on 06-14-2023 MCV (RBC) [Entitic vol] 96.6 fL 80-94 [facility] Hematocrit Auto (Bld) [Volum e fraction]Ordered By: Daija Morton on 06-14-2023 Hematocrit (Bld) [Volume fraction] 45.7 % 40-54 [facility] Laboratory - Chemistry and C hemistry - challengeOrdered By: Daijara Morton on 06-14-2023 CO2 [Moles/Vol] 30.0 mmol/L 21.0-32.0 [facility] Urea nitrogen/Creatinine [Mass ratio] 16.1 mg/mg 10-20 [facility] Laboratory - Hematology and Cell countsOrdered By: Daija Morton on 06-14-2023 Erythrocyte distribution width (RBC) [Entitic vol] 46.5 fL 35.1-43.9 [facility] Erythrocyte distribution width (RBC) [Ratio] 13.1 % 11.6-14.6 [facility] Immature granulocytes/100 WBC (Bld) 0.500 % 0.0-0.9 [facility] Comment on above: IG% - Immature Granu locytes (promyelocytes, myelocytes and metamyelocytes) > 1% indicates that a LEFT SHIFT is Present. MCH (RBC) [Entitic mass] 33.4 pg 27.0-32.0 [facility] Nucleated RBC/100 WBC (Bld) [Ratio] 0 % 0-5 [facility] MCHC Auto (RBC) [Mass/Vol]Or dered By: Daija Morton on 06-14-2023 MCHC (RBC) [Mass/Vol] 34.6 g/dL 32-36 [facility] No Panel InformationOrdered By: Daija Morton on 06-14-2023 Estimated GFR (MDRD) Amer 73 mL/min >60 [facility] Comment on above: GFR Calc Estimated GFR (MDRD) Non-Af Amer 61 mL/min >60 [facility] Comment on above: Non- GFR Calc 33.4 pg 27.0-32.0 [facility] 13.1 % 11.6-14.6 [facility] 46.5 fl 35.1-43.9 [facility] 0.500 % 0.0-0.9 [facility] 0 % 0-5 [facility] 61 mL/min >60 [facility] 73 mL/min >60 [facility] 16.1 RATIO 10-20 [facility] 30.0 mmol/L 21.0-32.0 [facility] Platelets bldOrdered By: Nemesio Morton on 06-14-2023 Platelets (Bld) [#/Vol] 285 10*3/uL 150-450 [facility] Serum or plasma calcium luis urement (mass/volume)Ordered By: Daija Morton on 06-14-2023 Calcium [Mass/Vol] 9.8 mg/dL 8.5-10.1 [facility] Serum or plasma creatinine m easurement (mass/volume)Ordered By: Daija Morton on 06-14-2023 Creatinine [Mass/Vol] 1.24 mg/dL 0.70-1.30 [facility] Comment on above: The validity of the calculated GFR & GFRAA in patients over 70 years has not been determined. Clinical correlation is essential. Serum or plasma urea nitroge n measurement (mass/volume)Ordered By: Daija Morton on 06-14-2023 Urea nitrogen [Mass/Vol] 20 mg/dL 7-18 [facility] Thin prep Papanicolaou smear with manual screeningOrdered By: Daija Morton on 06-14-2023 Thin prep Papanicolaou smear with manual screening 5 5-15 [facility] Basophil percentageOrdered B y: Андрей Cooley on 05-19-2023 Basophil percentage 100 mg/dL 74-106 [facility] Basophil percentage 6.5 g/dL 6.4-8.2 [facility] Basophil percentage 0.30 mg/dL 0.20-1.00 [facility] Basophil percentage 141 mmol/L 136-145 [facility] Basophil percentage 3.6 mmol/L 3.5-5.1 [facility] Basophil percentage 109 mmol/L 98-107 [facility] Basophils (Bld) [#/Vol] 6.2 10*3/uL 4.4-11.0 [facility] Bilirubin [Mass/Vol] 0.30 mg/dL 0.20-1.00 [facility] Comment on above: For patients on eltr ombopag therapy, use of Dimension [place] TBIL is not recommended. Chloride [Moles/Vol] 109 mmol/L 98-107 [facility] Glucose [Mass/Vol] 100 mg/dL 74-106 [facility] Comment on above: Fasting Glucose resu lt from 100 to 125 mg/dL suggests IMPAIRED HOMEOSTASIS per A.D.A. criteria. Potassium [Moles/Vol] 3.6 mmol/L 3.5-5.1 [facility] Protein [Mass/Vol] 6.5 g/dL 6.4-8.2 [facility] Sodium [Moles/Vol] 141 mmol/L 136-145 [facility] WBC (Bld) [#/Vol] 6.2 10*3/uL 4.4-11.0 [facility] Blood erythrocytes count (nu mber/volume)Ordered By: Андрей Cooley on 05-19-2023 RBC (Bld) [#/Vol] 4.24 10*6/uL 4.6-6.2 [facility] Blood hemoglobin measurement (mass/volume)Ordered By: Андрей Cooley on 05-19-2023 Hemoglobin (Bld) [Mass/Vol] 13.8 g/dL 13.0-16.5 [facility] Blood platelet mean volumeOr dered By: Андрей Cooley on 05-19-2023 Platelet mean volume (Bld) [Entitic vol] 9.9 fL 6.2-12.0 [facility] Determination of erythrocyte mean corpuscular volume (MCV)Ordered By: Андрей Cooley on 05-19-2023 MCV (RBC) [Entitic vol] 99.5 fL 80-94 [facility] Hematocrit Auto (Bld) [Volum e fraction]Ordered By: Андрей Cooley on 05-19-2023 Hematocrit (Bld) [Volume fraction] 42.2 % 40-54 [facility] Laboratory - Chemistry and C hemistry - challengeOrdered By: Андрей Cooley on 05-19-2023 ALP [Catalytic activity/Vol] 72 U/L 45-117 [facility] ALT [Catalytic activity/Vol] 33 U/L 16-61 [facility] CO2 [Moles/Vol] 29.0 mmol/L 21.0-32.0 [facility] Globulin (S) [Mass/Vol] 3.1 g/dL 2.2-4.2 [facility] Urea nitrogen/Creatinine [Mass ratio] 18.6 mg/mg 10-20 [facility] Laboratory - Hematology and Cell countsOrdered By: Андрей Cooley on 05-19-2023 Erythrocyte distribution width (RBC) [Entitic vol] 52.4 fL 35.1-43.9 [facility] Erythrocyte distribution width (RBC) [Ratio] 14.3 % 11.6-14.6 [facility] MCH (RBC) [Entitic mass] 32.5 pg 27.0-32.0 [facility] MCHC Auto (RBC) [Mass/Vol]Or dered By: Андрей Cooley on 05-19-2023 MCHC (RBC) [Mass/Vol] 32.7 g/dL 32-36 [facility] No Panel InformationOrdered By: Андрей Cooley on 05-19-2023 Estimated GFR (MDRD) Amer 78 mL/min >60 [facility] Comment on above: GFR Calc Estimated GFR (MDRD) Non-Af Amer 64 mL/min >60 [facility] Comment on above: Non- GFR Calc 32.5 pg 27.0-32.0 [facility] 14.3 % 11.6-14.6 [facility] 52.4 fl 35.1-43.9 [facility] 64 mL/min >60 [facility] 78 mL/min >60 [facility] 18.6 RATIO 10- [facility] 3.1 g/dL 2.2-4.2 [facility] 72 U/L 45-117 [facility] 33 U/L 16-61 [facility] 29.0 mmol/L 21.0-32.0 [facility] Platelets bldOrdered By: Italia Cooley on 05-19-2023 Platelets (Bld) [#/Vol] 284 10*3/uL 150-450 [facility] Serum or plasma albumin luis urement (mass/volume)Ordered By: Андрей Cooley on 05-19-2023 Albumin [Mass/Vol] 3.4 g/dL 3.2-5.0 [facility] Serum or plasma albumin/glob ulin mass ratioOrdered By: Андрей Cooley on 05-19-2023 Albumin/Globulin [Mass ratio] 1.1 {ratio} 0.9-2.4 [facility] Serum or plasma calcium luis urement (mass/volume)Ordered By: Андрей Cooley on 05-19-2023 Calcium [Mass/Vol] 8.7 mg/dL 8.5-10.1 [facility] Serum or plasma creatinine m easurement (mass/volume)Ordered By: Андрей Cooley on 05-19-2023 Creatinine [Mass/Vol] 1.18 mg/dL 0.70-1.30 [facility] Comment on above: The validity of the calculated GFR & GFRAA in patients over 70 years has not been determined. Clinical correlation is essential. Serum or plasma urea nitroge n measurement (mass/volume)Ordered By: Андрей Cooley on 05-19-2023 Urea nitrogen [Mass/Vol] 22 mg/dL 7-18 [facility] Thin prep Papanicolaou smear with manual screeningOrdered By: Андрей Cooley on 05-19-2023 Thin prep Papanicolaou smear with manual screening 17 U/L 15-37 [facility] Thin prep Papanicolaou smear with manual screening 3 5-15 [facility] Basophil percentageOrdered B y: Андрей Cooley on 04-19-2023 Basophil percentage 92 mg/dL 74-106 [facility] Basophil percentage 6.8 g/dL 6.4-8.2 [facility] Basophil percentage 0.20 mg/dL 0.20-1.00 [facility] Basophil percentage 140 mmol/L 136-145 [facility] Basophil percentage 4.0 mmol/L 3.5-5.1 [facility] Basophil percentage 105 mmol/L 98-107 [facility] Basophils (Bld) [#/Vol] 6.2 10*3/uL 4.4-11.0 [facility] Bilirubin [Mass/Vol] 0.20 mg/dL 0.20-1.00 [facility] Comment on above: For patients on eltr ombopag therapy, use of [place] TBIL is not recommended. Chloride [Moles/Vol] 105 mmol/L 98-107 [facility] Glucose [Mass/Vol] 92 mg/dL 74-106 [facility] Potassium [Moles/Vol] 4.0 mmol/L 3.5-5.1 [facility] Protein [Mass/Vol] 6.8 g/dL 6.4-8.2 [facility] Sodium [Moles/Vol] 140 mmol/L 136-145 [facility] WBC (Bld) [#/Vol] 6.2 10*3/uL 4.4-11.0 [facility] Blood erythrocytes count (nu mber/volume)Ordered By: Андрей Cooley on 04-19-2023 RBC (Bld) [#/Vol] 4.26 10*6/uL 4.6-6.2 [facility] Blood hemoglobin measurement (mass/volume)Ordered By: Андрей Cooley on 04-19-2023 Hemoglobin (Bld) [Mass/Vol] 13.6 g/dL 13.0-16.5 [facility] Blood platelet mean volumeOr dered By: Андрей Cooley on 04-19-2023 Platelet mean volume (Bld) [Entitic vol] 9.7 fL 6.2-12.0 [facility] Determination of erythrocyte mean corpuscular volume (MCV)Ordered By: Андрей Cooley on 04-19-2023 MCV (RBC) [Entitic vol] 99.5 fL 80-94 [facility] Hematocrit Auto (Bld) [Volum e fraction]Ordered By: Андрей Cooley on 04-19-2023 Hematocrit (Bld) [Volume fraction] 42.4 % 40-54 [facility] Laboratory - Chemistry and C hemistry - challengeOrdered By: Андрей Cooley on 04-19-2023 ALP [Catalytic activity/Vol] 82 U/L 45-117 [facility] ALT [Catalytic activity/Vol] 27 U/L 16-61 [facility] CO2 [Moles/Vol] 29.0 mmol/L 21.0-32.0 [facility] Globulin (S) [Mass/Vol] 3.5 g/dL 2.2-4.2 [facility] Urea nitrogen/Creatinine [Mass ratio] 22.2 mg/mg 10-20 [facility] Laboratory - Hematology and Cell countsOrdered By: Андрей Cooley on 04-19-2023 Erythrocyte distribution width (RBC) [Entitic vol] 51.8 fL 35.1-43.9 [facility] Erythrocyte distribution width (RBC) [Ratio] 14.4 % 11.6-14.6 [facility] MCH (RBC) [Entitic mass] 31.9 pg 27.0-32.0 [facility] MCHC Auto (RBC) [Mass/Vol]Or dered By: Андрей Cooley on 04-19-2023 MCHC (RBC) [Mass/Vol] 32.1 g/dL 32-36 [facility] No Panel InformationOrdered By: Андрей Cooley on 04-19-2023 Estimated GFR (MDRD) Amer 86 mL/min >60 [facility] Comment on above: GFR Calc Estimated GFR (MDRD) Non-Af Amer 71 mL/min >60 [facility] Comment on above: Non- GFR Calc 31.9 pg 27.0-32.0 [facility] 14.4 % 11.6-14.6 [facility] 51.8 fl 35.1-43.9 [facility] 71 mL/min >60 [facility] 86 mL/min >60 [facility] 22.2 RATIO 10-20 [facility] 3.5 g/dL 2.2-4.2 [facility] 82 U/L 45-117 [facility] 27 U/L 16-61 [facility] 29.0 mmol/L 21.0-32.0 [facility] Platelets bldOrdered By: Italia Cooley on 04-19-2023 Platelets (Bld) [#/Vol] 382 10*3/uL 150-450 [facility] Serum or plasma albumin luis urement (mass/volume)Ordered By: Андрей Cooley on 04-19-2023 Albumin [Mass/Vol] 3.3 g/dL 3.2-5.0 [facility] Serum or plasma albumin/glob ulin mass ratioOrdered By: Андрей Cooley on 04-19-2023 Albumin/Globulin [Mass ratio] 0.9 {ratio} 0.9-2.4 [facility] Serum or plasma calcium luis urement (mass/volume)Ordered By: Андрей Cooley on 04-19-2023 Calcium [Mass/Vol] 9.1 mg/dL 8.5-10.1 [facility] Serum or plasma creatinine m easurement (mass/volume)Ordered By: Андрей Cooley on 04-19-2023 Creatinine [Mass/Vol] 1.08 mg/dL 0.70-1.30 [facility] Comment on above: The validity of the calculated GFR & GFRAA in patients over 70 years has not been determined. Clinical correlation is essential. Serum or plasma urea nitroge n measurement (mass/volume)Ordered By: Андрей Cooley on 04-19-2023 Urea nitrogen [Mass/Vol] 24 mg/dL 7-18 [facility] Thin prep Papanicolaou smear with manual screeningOrdered By: Андрей Cooley on 04-19-2023 Thin prep Papanicolaou smear with manual screening 19 U/L 15-37 [facility] Thin prep Papanicolaou smear with manual screening 6 5-15 [facility] Whole blood hemoglobin A1c/t otal hemoglobin ratio (mass fraction)Ordered By: Андрей Cooley on 04-17-2023 HbA1c (Bld) [Mass fraction] 5.2 % 3.8-5.6 [facility] Comment on above: Normal < 5.7 % Predi abetic 5.7 - 6.4 % Diabetic >or= 6.5 % Please note range changes. Basophil percentageOrdered B y: Андрей Cooley on 04-12-2023 Basophil percentage 92 mg/dL 74-106 [facility] Basophil percentage 6.4 g/dL 6.4-8.2 [facility] Basophil percentage 0.10 mg/dL 0.20-1.00 [facility] Basophil percentage 139 mmol/L 136-145 [facility] Basophil percentage 4.1 mmol/L 3.5-5.1 [facility] Basophil percentage 107 mmol/L 98-107 [facility] Basophils (Bld) [#/Vol] 7.8 10*3/uL 4.4-11.0 [facility] Bilirubin [Mass/Vol] 0.10 mg/dL 0.20-1.00 [facility] Comment on above: For patients on eltr ombopag therapy, use of [place] TBIL is not recommended. Chloride [Moles/Vol] 107 mmol/L 98-107 [facility] Glucose [Mass/Vol] 92 mg/dL 74-106 [facility] Potassium [Moles/Vol] 4.1 mmol/L 3.5-5.1 [facility] Protein [Mass/Vol] 6.4 g/dL 6.4-8.2 [facility] Sodium [Moles/Vol] 139 mmol/L 136-145 [facility] WBC (Bld) [#/Vol] 7.8 10*3/uL 4.4-11.0 [facility] Blood erythrocytes count (nu mber/volume)Ordered By: Андрей Cooley on 04-12-2023 RBC (Bld) [#/Vol] 4.04 10*6/uL 4.6-6.2 [facility] Blood hemoglobin measurement (mass/volume)Ordered By: Андрей Cooley on 04-12-2023 Hemoglobin (Bld) [Mass/Vol] 13.2 g/dL 13.0-16.5 [facility] Blood platelet mean volumeOr dered By: Андрей Cooley on 04-12-2023 Platelet mean volume (Bld) [Entitic vol] 9.7 fL 6.2-12.0 [facility] Determination of erythrocyte mean corpuscular volume (MCV)Ordered By: Андрей Cooley on 04-12-2023 MCV (RBC) [Entitic vol] 97.5 fL 80-94 [facility] Hematocrit Auto (Bld) [Volum e fraction]Ordered By: Андрей Cooley on 04-12-2023 Hematocrit (Bld) [Volume fraction] 39.4 % 40-54 [facility] Laboratory - Chemistry and C hemistry - challengeOrdered By: Андрей Cooley on 04-12-2023 ALP [Catalytic activity/Vol] 88 U/L 45-117 [facility] ALT [Catalytic activity/Vol] 32 U/L 16-61 [facility] CO2 [Moles/Vol] 26.0 mmol/L 21.0-32.0 [facility] Globulin (S) [Mass/Vol] 3.4 g/dL 2.2-4.2 [facility] Urea nitrogen/Creatinine [Mass ratio] 20.2 mg/mg 10- [facility] Laboratory - Hematology and Cell countsOrdered By: Андрей Cooley on 04-12-2023 Erythrocyte distribution width (RBC) [Entitic vol] 49.3 fL 35.1-43.9 [facility] Erythrocyte distribution width (RBC) [Ratio] 13.8 % 11.6-14.6 [facility] MCH (RBC) [Entitic mass] 32.7 pg 27.0-32.0 [facility] MCHC Auto (RBC) [Mass/Vol]Or dered By: Андрей Cooley on 04-12-2023 MCHC (RBC) [Mass/Vol] 33.5 g/dL 32-36 [facility] No Panel InformationOrdered By: Андрей Cooley on 04-12-2023 Estimated GFR (MDRD) Amer 77 mL/min >60 [facility] Comment on above: GFR Calc Estimated GFR (MDRD) Non-Af Amer 64 mL/min >60 [facility] Comment on above: Non- GFR Calc 32.7 pg 27.0-32.0 [facility] 13.8 % 11.6-14.6 [facility] 49.3 fl 35.1-43.9 [facility] 64 mL/min >60 [facility] 77 mL/min >60 [facility] 20.2 RATIO 04-07 [facility] 3.4 g/dL 2.2-4.2 [facility] 88 U/L 45-117 [facility] 32 U/L 16-61 [facility] 26.0 mmol/L 21.0-32.0 [facility] Platelets bldOrdered By: Italia Cooley on 04-12-2023 Platelets (Bld) [#/Vol] 385 10*3/uL 150-450 [facility] Serum or plasma albumin luis urement (mass/volume)Ordered By: Андрей Cooley on 04-12-2023 Albumin [Mass/Vol] 3.0 g/dL 3.2-5.0 [facility] Serum or plasma albumin/glob ulin mass ratioOrdered By: Андрей Cooley on 04-12-2023 Albumin/Globulin [Mass ratio] 0.9 {ratio} 0.9-2.4 [facility] Serum or plasma calcium luis urement (mass/volume)Ordered By: Андрей Cooley on 04-12-2023 Calcium [Mass/Vol] 8.7 mg/dL 8.5-10.1 [facility] Serum or plasma creatinine m easurement (mass/volume)Ordered By: Андрей Cooley on 04-12-2023 Creatinine [Mass/Vol] 1.19 mg/dL 0.70-1.30 [facility] Comment on above: The validity of the calculated GFR & GFRAA in patients over 70 years has not been determined. Clinical correlation is essential. Serum or plasma urea nitroge n measurement (mass/volume)Ordered By: Андрей Cooley on 04-12-2023 Urea nitrogen [Mass/Vol] 24 mg/dL 7-18 [facility] Thin prep Papanicolaou smear with manual screeningOrdered By: Андрей Cooley on 04-12-2023 Thin prep Papanicolaou smear with manual screening 21 U/L 15-37 [facility] Thin prep Papanicolaou smear with manual screening 6 5-15 [facility] Basophil percentageOrdered B y: Андрей Cooley on 04-05-2023 Basophil percentage 105 mg/dL 74-106 [facility] Basophil percentage 6.7 g/dL 6.4-8.2 [facility] Basophil percentage 0.20 mg/dL 0.20-1.00 [facility] Basophil percentage 139 mmol/L 136-145 [facility] Basophil percentage 3.9 mmol/L 3.5-5.1 [facility] Basophil percentage 105 mmol/L 98-107 [facility] Basophils (Bld) [#/Vol] 5.8 10*3/uL 4.4-11.0 [facility] Bilirubin [Mass/Vol] 0.20 mg/dL 0.20-1.00 [facility] Comment on above: For patients on eltr ombopag therapy, use of Dim[place] TBIL is not recommended. Chloride [Moles/Vol] 105 mmol/L 98-107 [facility] Glucose [Mass/Vol] 105 mg/dL 74-106 [facility] Comment on above: Fasting Glucose resu lt from 100 to 125 mg/dL suggests IMPAIRED HOMEOSTASIS per A.D.A. criteria. Potassium [Moles/Vol] 3.9 mmol/L 3.5-5.1 [facility] Protein [Mass/Vol] 6.7 g/dL 6.4-8.2 [facility] Sodium [Moles/Vol] 139 mmol/L 136-145 [facility] WBC (Bld) [#/Vol] 5.8 10*3/uL 4.4-11.0 [facility] Blood erythrocytes count (nu mber/volume)Ordered By: Андрей Cooley on 04-05-2023 RBC (Bld) [#/Vol] 4.40 10*6/uL 4.6-6.2 [facility] Blood hemoglobin measurement (mass/volume)Ordered By: Андрей Cooley on 04-05-2023 Hemoglobin (Bld) [Mass/Vol] 13.9 g/dL 13.0-16.5 [facility] Blood platelet mean volumeOr dered By: Андрей Cooley on 04-05-2023 Platelet mean volume (Bld) [Entitic vol] 9.5 fL 6.2-12.0 [facility] Determination of erythrocyte mean corpuscular volume (MCV)Ordered By: Андрей Cooley on 04-05-2023 MCV (RBC) [Entitic vol] 96.8 fL 80-94 [facility] Hematocrit Auto (Bld) [Volum e fraction]Ordered By: Андрей Cooley on 04-05-2023 Hematocrit (Bld) [Volume fraction] 42.6 % 40-54 [facility] Laboratory - Chemistry and C hemistry - challengeOrdered By: Андрей Cooley on 04-05-2023 ALP [Catalytic activity/Vol] 60 U/L 45-117 [facility] ALT [Catalytic activity/Vol] 54 U/L 16-61 [facility] CO2 [Moles/Vol] 28.0 mmol/L 21.0-32.0 [facility] Globulin (S) [Mass/Vol] 3.8 g/dL 2.2-4.2 [facility] Urea nitrogen/Creatinine [Mass ratio] 22.0 mg/mg 10-20 [facility] Laboratory - Hematology and Cell countsOrdered By: Андрей Cooley on 04-05-2023 Erythrocyte distribution width (RBC) [Entitic vol] 50.1 fL 35.1-43.9 [facility] Erythrocyte distribution width (RBC) [Ratio] 14.0 % 11.6-14.6 [facility] MCH (RBC) [Entitic mass] 31.6 pg 27.0-32.0 [facility] MCHC Auto (RBC) [Mass/Vol]Or dered By: Андрей Cooley on 04-05-2023 MCHC (RBC) [Mass/Vol] 32.6 g/dL 32-36 [facility] No Panel InformationOrdered By: Андрей Cooley on 04-05-2023 Estimated GFR (MDRD) Amer 85 mL/min >60 [facility] Comment on above: GFR Calc Estimated GFR (MDRD) Non-Af Amer 70 mL/min >60 [facility] Comment on above: Non- GFR Calc 31.6 pg 27.0-32.0 [facility] 14.0 % 11.6-14.6 [facility] 50.1 fl 35.1-43.9 [facility] 70 mL/min >60 [facility] 85 mL/min >60 [facility] 22.0 RATIO 10-20 [facility] 3.8 g/dL 2.2-4.2 [facility] 60 U/L 45-117 [facility] 54 U/L 16-61 [facility] 28.0 mmol/L 21.0-32.0 [facility] Platelets bldOrdered By: Italia Cooley on 04-05-2023 Platelets (Bld) [#/Vol] 399 10*3/uL 150-450 [facility] Serum or plasma albumin luis urement (mass/volume)Ordered By: Андрей Cooley on 04-05-2023 Albumin [Mass/Vol] 2.9 g/dL 3.2-5.0 [facility] Serum or plasma albumin/glob ulin mass ratioOrdered By: Андрей Cooley on 04-05-2023 Albumin/Globulin [Mass ratio] 0.8 {ratio} 0.9-2.4 [facility] Serum or plasma calcium luis urement (mass/volume)Ordered By: Андрей Cooley on 04-05-2023 Calcium [Mass/Vol] 9.3 mg/dL 8.5-10.1 [facility] Serum or plasma creatinine m easurement (mass/volume)Ordered By: Андрей Cooley on 04-05-2023 Creatinine [Mass/Vol] 1.09 mg/dL 0.70-1.30 [facility] Comment on above: The validity of the calculated GFR & GFRAA in patients over 70 years has not been determined. Clinical correlation is essential. Serum or plasma urea nitroge n measurement (mass/volume)Ordered By: Андрей Cooley on 04-05-2023 Urea nitrogen [Mass/Vol] 24 mg/dL -18 [facility] Thin prep Papanicolaou smear with manual screeningOrdered By: Андрей Cooley on 04-05-2023 Thin prep Papanicolaou smear with manual screening 38 U/L 15-37 [facility] Thin prep Papanicolaou smear with manual screening 6 5-15 [facility] Absolute lymphocyte countOrd ered By: Frankie Galindo on 04-04-2023 Lymphocytes Auto (Unsp spec) [#/Vol] 1.49 10*3/uL 0.83-4.51 [facility] Basophil percentageOrdered B y: Frankie Galindo on 04-04-2023 Basophil percentage 101 mg/dL 74-106 [facility] Basophil percentage 136 mmol/L 136-145 [facility] Basophil percentage 3.9 mmol/L 3.5-5.1 [facility] Basophil percentage 103 mmol/L 98-107 [facility] Basophils (Bld) [#/Vol] 6.3 10*3/uL 4.4-11.0 [facility] Basophils (Bld) [#/Vol] 4.1 10*3/uL 2.0-7.7 [facility] Basophils/100 WBC (Bld) 1.1 % 0-1 [facility] Basophils/100 WBC (Bld) 64.4 % 47-70 [facility] Basophils/100 WBC (Bld) 3.3 % 0-5 [facility] Chloride [Moles/Vol] 103 mmol/L 98-107 [facility] Eosinophils/100 WBC (Bld) 3.3 % 0-5 [facility] Glucose [Mass/Vol] 101 mg/dL 74-106 [facility] Comment on above: Fasting Glucose resu lt from 100 to 125 mg/dL suggests IMPAIRED HOMEOSTASIS per A.D.A. criteria. Neutrophils (Bld) [#/Vol] 4.1 10*3/uL 2.0-7.7 [facility] Neutrophils/100 WBC (Bld) 64.4 % 47-70 [facility] Potassium [Moles/Vol] 3.9 mmol/L 3.5-5.1 [facility] Sodium [Moles/Vol] 136 mmol/L 136-145 [facility] WBC (Bld) [#/Vol] 6.3 10*3/uL 4.4-11.0 [facility] Blood erythrocytes count (nu mber/volume)Ordered By: Frankie Galindo on 04-04-2023 RBC (Bld) [#/Vol] 4.82 10*6/uL 4.6-6.2 [facility] Blood hemoglobin measurement (mass/volume)Ordered By: Frankie Galindo on 04-04-2023 Hemoglobin (Bld) [Mass/Vol] 15.1 g/dL 13.0-16.5 [facility] Blood lymphocytes/100 leukoc ytesOrdered By: Frankie Galindo on 04-04-2023 Lymphocytes/100 WBC (Bld) 23.6 % 19-41 [facility] Blood monocytes/100 leukocyt esOrdered By: Frankie Galindo on 04-04-2023 Monocytes/100 WBC (Bld) 6.3 % 0-10 [facility] Blood platelet mean volumeOr dered By: Frankie Galindo on 04-04-2023 Platelet mean volume (Bld) [Entitic vol] 9.3 fL 6.2-12.0 [facility] Determination of erythrocyte mean corpuscular volume (MCV)Ordered By: Frankie Galindo on 04-04-2023 MCV (RBC) [Entitic vol] 96.7 fL 80-94 [facility] Hematocrit Auto (Bld) [Volum e fraction]Ordered By: Frankie Galindo on 04-04-2023 Hematocrit (Bld) [Volume fraction] 46.6 % 40-54 [facility] Laboratory - Chemistry and C hemistry - challengeOrdered By: Frankie Galindo on 04-04-2023 CO2 [Moles/Vol] 29.0 mmol/L 21.0-32.0 [facility] Urea nitrogen/Creatinine [Mass ratio] 20.3 mg/mg 04-07 [facility] Laboratory - Hematology and Cell countsOrdered By: Frankie Galindo on 04-04-2023 Erythrocyte distribution width (RBC) [Entitic vol] 48.9 fL 35.1-43.9 [facility] Erythrocyte distribution width (RBC) [Ratio] 13.6 % 11.6-14.6 [facility] Immature granulocytes/100 WBC (Bld) 1.300 % 0.0-0.9 [facility] Comment on above: IG% - Immature Granu locytes (promyelocytes, myelocytes and metamyelocytes) > 1% indicates that a LEFT SHIFT is Present. MCH (RBC) [Entitic mass] 31.3 pg 27.0-32.0 [facility] Nucleated RBC/100 WBC (Bld) [Ratio] 0 % 0- [facility] MCHC Auto (RBC) [Mass/Vol]Or dered By: Frankie Galindo on 04-04-2023 MCHC (RBC) [Mass/Vol] 32.4 g/dL 32-36 [facility] No Panel InformationOrdered By: Frankie Galindo on 04-04-2023 Estimated Creatinine Clearance Calc 45.80 ml/min [facility] Estimated GFR (MDRD) Amer 71 mL/min >60 [facility] Comment on above: GFR Calc Estimated GFR (MDRD) Non-Af Amer 58 mL/min >60 [facility] Comment on above: Non- GFR Calc 31.3 pg 27.0-32.0 [facility] 13.6 % 11.6-14.6 [facility] 48.9 fl 35.1-43.9 [facility] 1.300 % 0.0-0.9 [facility] 0 % 0-5 [facility] 58 mL/min >60 [facility] 71 mL/min >60 [facility] 45.80 ml/min [facility] 20.3 RATIO 04-07 [facility] 29.0 mmol/L 21.0-32.0 [facility] Platelets bldOrdered By: Sebastien Galindo on 04-04-2023 Platelets (Bld) [#/Vol] 379 10*3/uL 150-450 [facility] Serum or plasma calcium luis urement (mass/volume)Ordered By: Frankie Galindo on 04-04-2023 Calcium [Mass/Vol] 9.7 mg/dL 8.5-10.1 [facility] Serum or plasma creatinine m easurement (mass/volume)Ordered By: Frankie Galindo on 04-04-2023 Creatinine [Mass/Vol] 1.28 mg/dL 0.70-1.30 [facility] Comment on above: The validity of the calculated GFR & GFRAA in patients over 70 years has not been determined. Clinical correlation is essential. Serum or plasma urea nitroge n measurement (mass/volume)Ordered By: Frankie Galindo on 04-04-2023 Urea nitrogen [Mass/Vol] 26 mg/dL 7-18 [facility] Thin prep Papanicolaou smear with manual screeningOrdered By: Frankie Galindo on 04-04-2023 Thin prep Papanicolaou smear with manual screening 4 10-31 [facility] Basophil percentageOrdered B y: Frankie Galindo on 04-02-2023 Basophil percentage 2.6 mg/dL 2.5-4.9 [facility] Laboratory - Chemistry and C hemistry - challengeOrdered By: Frankie Galindo on 04-02-2023 Magnesium [Mass/Vol] 2.0 mg/dL 1.6-2.6 [facility] No Panel InformationOrdered By: Frankie Galindo on 04-02-2023 2.0 mg/dL 1.6-2.6 [facility] Basophil percentageOrdered B y: Celia Toribio on 04-01-2023 Basophil percentage 6.5 g/dL 6.4-8.2 [facility] Basophil percentage 0.30 mg/dL 0.20-1.00 [facility] Bilirubin [Mass/Vol] 0.30 mg/dL 0.20-1.00 [facility] Comment on above: For patients on eltr ombopag therapy, use of Dimension [place] TBIL is not recommended. Protein [Mass/Vol] 6.5 g/dL 6.4-8.2 [facility] - Chemistry and C hemistry - challengeOrdered By: Celia Toribio on 04-01-2023 ALP [Catalytic activity/Vol] 57 U/L 45- [facility] ALT [Catalytic activity/Vol] 21 U/L [facility] Globulin (S) [Mass/Vol] 3.9 g/dL 2.2-4.2 [facility] No Panel InformationOrdered By: Celia Toribio on 04-01-2023 3.9 g/dL 2.2-4.2 [facility] 57 U/L - [facility] 21 U/L [facility] Serum or plasma albumin luis urement (mass/volume)Ordered By: Celia Toribio on 04-01-2023 Albumin [Mass/Vol] 2.6 g/dL 3.2-5.0 [facility] Serum or plasma albumin/glob ulin mass ratioOrdered By: Celia Toribio on 04-01-2023 Albumin/Globulin [Mass ratio] 0.7 {ratio} 0.9-2.4 [facility] Thin prep Papanicolaou smear with manual screeningOrdered By: Celia Toribio on 04-01-2023 Thin prep Papanicolaou smear with manual screening 12 U/L 15-37 [facility] Absolute lymphocyte countOrd ered By: Huber Alvarado on 03-30-2023 Lymphocytes Auto (Unsp spec) [#/Vol] 0.93 10*3/uL 0.83-4.51 [facility] Bacteria identified Cx Nom ( U)Ordered By: Huber Alvarado on 03-30-2023 Culture, urine ESBL Escherichia coli [facility] Basophil percentageOrdered B y: Huber Alvarado on 03-30-2023 Basophil percentage 1.4 mmol/L 0.4-2.0 [facility] Lactate [Moles/Vol] 1.4 mmol/L 0.4-2.0 [facility] Basophil percentage 25-50 SEEN /hpf 0-5 [facility] Basophils/100 WBC (Bld) 0.7 % 0-1 [facility] Chloride [Moles/Vol] 99 mmol/L 98-107 [facility] Eosinophils/100 WBC (Bld) 0.0 % 0-5 [facility] Glucose [Mass/Vol] 104 mg/dL 74-106 [facility] Comment on above: Fasting Glucose resu lt from 100 to 125 mg/dL suggests IMPAIRED HOMEOSTASIS per A.D.A. criteria. Neutrophils (Bld) [#/Vol] 7.9 10*3/uL 2.0-7.7 [facility] Neutrophils/100 WBC (Bld) 79.2 % 47-70 [facility] Potassium [Moles/Vol] 4.0 mmol/L 3.5-5.1 [facility] Sodium [Moles/Vol] 134 mmol/L 136-145 [facility] WBC (Bld) [#/Vol] 10.0 10*3/uL 4.4-11.0 [facility] Bilirubin Test strip Ql (U)O rdered By: Huber Alvarado on 03-30-2023 Bilirubin Ql (U) Negative Negative [facility] Blood erythrocytes count (nu mber/volume)Ordered By: Huber Alvarado on 03-30-2023 RBC (Bld) [#/Vol] 4.81 10*6/uL 4.6-6.2 [facility] Blood hemoglobin measurement (mass/volume)Ordered By: Huber Alvarado on 03-30-2023 Hemoglobin (Bld) [Mass/Vol] 15.4 g/dL 13.0-16.5 [facility] Blood lymphocytes/100 leukoc ytesOrdered By: Huber Alvarado on 03-30-2023 Lymphocytes/100 WBC (Bld) 9.3 % 19-41 [facility] Blood monocytes/100 leukocyt esOrdered By: Huber Alvarado on 03-30-2023 Monocytes/100 WBC (Bld) 10.5 % 0-10 [facility] Blood platelet mean volumeOr dered By: Huber Alvarado on 03-30-2023 Platelet mean volume (Bld) [Entitic vol] 9.8 fL 6.2-12.0 [facility] Culture, urineOrdered By: Baldo Chan on 03-30-2023 Bacteria identified Cx Nom (U) ESBL Escherichia coli [facility] Bacteria identified Cx Nom (U) ESBL Escherichia coli [facility] Determination of erythrocyte mean corpuscular volume (MCV)Ordered By: Huber Alvarado on 03-30-2023 MCV (RBC) [Entitic vol] 97.5 fL 80-94 [facility] Hematocrit Auto (Bld) [Volum e fraction]Ordered By: Huber Alvarado on 03-30-2023 Hematocrit (Bld) [Volume fraction] 46.9 % 40-54 [facility] Ketones Test strip Ql (U)Ord ered By: Huber Alvarado on 03-30-2023 Ketones Ql (U) Negative Negative [facility] Laboratory - Chemistry and C hemistry - challengeOrdered By: Huber Alvarado on 03-30-2023 CO2 [Moles/Vol] 31.0 mmol/L 21.0-32.0 [facility] Urea nitrogen/Creatinine [Mass ratio] 16.0 mg/mg 10-20 [facility] Laboratory - Hematology and Cell countsOrdered By: Huber Alvarado on 03-30-2023 Erythrocyte distribution width (RBC) [Entitic vol] 50.3 fL 35.1-43.9 [facility] Erythrocyte distribution width (RBC) [Ratio] 13.9 % 11.6-14.6 [facility] Immature granulocytes/100 WBC (Bld) 0.300 % 0.0-0.9 [facility] Comment on above: IG% - Immature Granu locytes (promyelocytes, myelocytes and metamyelocytes) > 1% indicates that a LEFT SHIFT is Present. MCH (RBC) [Entitic mass] 32.0 pg 27.0-32.0 [facility] Nucleated RBC/100 WBC (Bld) [Ratio] 0 % 0-5 [facility] Laboratory - Microbiology an d Antimicrobial susceptibilityOrdered By: Huber Alvarado on 03-30-2023 Bacteria identified Cx Nom (Bld) No growth in 5 days. [facility] MCHC Auto (RBC) [Mass/Vol]Or dered By: Huber Alvarado on 03-30-2023 MCHC (RBC) [Mass/Vol] 32.8 g/dL 32-36 [facility] Mucus LM Ql (Urine sed)Order ed By: Huber Alvarado on 03-30-2023 Mucus Ql (Urine sed) 0 SEEN /hpf [facility] Nitrite Test strip Ql (U)Ord ered By: Huber Alvarado on 03-30-2023 Nitrite Ql (U) Negative Negative [facility] No Panel InformationOrdered By: Huber Alvarado on 03-30-2023 No growth in 5 days. [facility] Estimated GFR (MDRD) Amer 77 mL/min >60 [facility] Comment on above: GFR Calc Estimated GFR (MDRD) Non-Af Amer 64 mL/min >60 [facility] Comment on above: Non- GFR Calc Platelets bldOrdered By: Beck Alvarado on 03-30-2023 Platelets (Bld) [#/Vol] 276 10*3/uL 150-450 [facility] Protein Test strip Ql (U)Ord ered By: Huber Alvarado on 03-30-2023 Protein Ql (U) 100 mg/dl Negative [facility] Serum or plasma calcium luis urement (mass/volume)Ordered By: Huber Alvarado on 03-30-2023 Calcium [Mass/Vol] 9.8 mg/dL 8.5-10.1 [facility] Serum or plasma creatinine m easurement (mass/volume)Ordered By: Huber Alvarado on 03-30-2023 Creatinine [Mass/Vol] 1.19 mg/dL 0.70-1.30 [facility] Comment on above: The validity of the calculated GFR & GFRAA in patients over 70 years has not been determined. Clinical correlation is essential. Serum or plasma urea nitroge n measurement (mass/volume)Ordered By: Huber Alvarado on 03-30-2023 Urea nitrogen [Mass/Vol] 19 mg/dL 7-18 [facility] Squamous epithelial cells de tection in urine sediment by light microscopyOrdered By: Huber Alvarado on 03-30-2023 Epithelial cells.squamous LM Ql (Urine sed) 0-5 SEEN /hpf 0-5 [facility] Thin prep Papanicolaou smear with manual screeningOrdered By: Huber Alvarado on 03-30-2023 Thin prep Papanicolaou smear with manual screening 4 5-15 [facility] Urine blood detectionOrdered By: Huber Alvarado on 03-30-2023 RBC Ql (U) 50 /ul Negative [facility] RBC Ql (U) 0 SEEN /hpf 0-5 [facility] Urine clarityOrdered By: Beck Alvarado on 03-30-2023 Clarity (U) Sl. Cloudy Clear [facility] Urine color determinationOrd ered By: Huber Alvarado on 03-30-2023 Color (U) Yellow Yellow [facility] Urine glucose detectionOrder ed By: Huber Alvarado on 03-30-2023 Glucose Ql (U) Normal mg/dl Normal [facility] Urine leukocyte esterase det ection by dipstickOrdered By: Huber Alvarado on 03-30-2023 Leukocyte esterase Test strip Ql (U) 500 /ul Negative [facility] Urine pHOrdered By: Huber billingsley on 03-30-2023 pH (U) 6.0 [pH] 5.0 - 8.0 [facility] Urine sediment bacteria coun t by microscopy (number/high power field)Ordered By: Huber Alvarado on 03-30-2023 Bacteria LM.HPF (Urine sed) [#/Area] 3 /[HPF] None Seen [facility] Urine specific gravity measu rementOrdered By: Huber Alvarado on 03-30-2023 Specific gravity (U) [Rel density] 1.020 1.002-1.030 [facility] Urobilinogen Auto test strip Ql (U)Ordered By: Huber Alvarado on 03-30-2023 Urobilinogen Ql (U) Normal mg/dl Normal [facility] INR in Blood by Coagulation assayOrdered By: Jaden Jauregui on 02-18-2023 INR Coag (Bld) [Relative time] 0.9 {INR} [facility] Laboratory - CoagulationOrde red By: Jaden Jauregui on 02-18-2023 PT Coag (PPP) [Time] 12.4 s 11.7-14.9 [facility] [address] ABD/PELVIS W/ IV CONTRAST [...] PM Ordering Provider: PRIYANKA FRANCO [facility] ([place] .Auto Diffon 10-22-2022 Basophil, Absolute 0.1 10 3/mcL Normal 0.0-0.2 [facility] ([place]) Comment on above: Performed By: #### A DIFF, LIP, MDW, CMP, GFR, ANEU, CBC #### [address] [address] Basophils/100 WBC (Bld) 0.8 % Normal 0.0-2.5 [facility] ([place]) Comment on above: Performed By: #### A DIFF, LIP, MDW, CMP, GFR, ANEU, CBC #### [address] [address] Eosinophil, Absolute 0.0 10 3/mcL Normal 0.0-0.4 [facility] ([place]) Comment on above: Performed By: #### A DIFF, LIP, MDW, CMP, GFR, ANEU, CBC #### [address] [address] Eosinophils/100 WBC (Bld) 0.3 % Normal 0.0-7.0 [facility] ([place]) Comment on above: Performed By: #### A DIFF, LIP, MDW, CMP, GFR, ANEU, CBC #### [address] [address] Lymphocyte, Absolute 0.9 10 3/mcL Normal 0.8-3.9 [facility] ([place]) Comment on above: Performed By: #### A DIFF, LIP, MDW, CMP, GFR, ANEU, CBC #### [address] [address] Lymphocytes/100 WBC (Bld) 8.1 % Low 10.0-50.0 [facility] ([place] Comment on above: Performed By: #### A DIFF, LIP, MDW, CMP, GFR, ANEU, CBC #### [address] [address] Monocyte, Absolute 0.7 10 3/mcL Normal 0.2-1.0 [facility] ([place] Comment on above: Performed By: #### A DIFF, LIP, MDW, CMP, GFR, ANEU, CBC #### [address] [address] Monocytes/100 WBC (Bld) 6.8 % Normal 1.7-13.0 [facility] ([place]) Comment on above: Performed By: #### A DIFF, FILIBERTO, MDW, CMP, GFR, ANEU, CBC #### [address] [address] Neutrophils/100 WBC (Bld) 84.0 % High 37.0-80.0 [facility] ([place]) Comment on above: Performed By: #### A DIFF, LIP, MDW, CMP, GFR, ANEU, CBC #### [address] [address] .GFRon 10-22-2022 GFR Non- 58 ml/min/1.73sqm Normal [facility] ([place]) Comment on above: Result Comment: GFR [...] FILIBERTO, MDW, CMP, GFR, ANEU, CBC #### [address] [address] GFR 71 ml/min/1.73sqm Normal [facility] ([place]) Comment on above: Result Comment: GFR [...] LIP, MDW, CMP, GFR, ANEU, CBC #### [address] [address] .MDWon 10-22-2022 Monocyte Distribution Width 24.33 High 0.00-20.00 [facility] ([place] Comment on above: Result Comment: For adults in ED, MDW>20.0 may be associated with a higher risk of sepsis during the first 12hrs of hospital admission Performed By: #### A DIFF, LIP, MDW, CMP, GFR, ANEU, CBC #### [address] [address] .NEUABSon 10-22-2022 Neutrophil, Absolute 8.9 10 3/mcL High 2.9-6.2 [facility] ([place]) Comment on above: Performed By: #### A DIFF, LIP, MDW, CMP, GFR, ANEU, CBC #### [address] [address] CBCon 10-22-2022 Erythrocyte distribution width (RBC) [Ratio] 14.0 % Normal 11.5-14.5 [facility] ([place] Comment on above: Performed By: #### A DIFF, LIP, MDW, CMP, GFR, ANEU, CBC #### [address] [address] Hematocrit (Bld) [Volume fraction] 38.9 % Low 42.0-52.0 [facility] ([place] Comment on above: Performed By: #### A DIFF, LIP, MDW, CMP, GFR, ANEU, CBC #### [address] [address] Hgb 13.5 G/dL Low 14.0-18.0 [facility] ([place] Comment on above: Performed By: #### A DIFF, LIP, MDW, CMP, GFR, ANEU, CBC #### [address] [address] MCH (RBC) [Entitic mass] 33.0 pg High 27.0-31.2 [facility] ([place] Comment on above: Performed By: #### A DIFF, LIP, MDW, CMP, GFR, ANEU, CBC #### [address] [address] MCHC 34.8 G/dL Normal 31.8-35.4 [facility] ([place] Comment on above: Performed By: #### A DIFF, LIP, MDW, CMP, GFR, ANEU, CBC #### [address] [address] MCV (RBC) [Entitic vol] 95.0 fL High 80.0-94.0 [facility] ([place]) Comment on above: Performed By: #### A DIFF, LIP, MDW, CMP, GFR, ANEU, CBC #### [address] [address] Platelet 344 10 3/mcL Normal 130-400 [facility] ([place] Comment on above: Performed By: #### A DIFF, LIP, MDW, CMP, GFR, ANEU, CBC #### [address] [address] Platelet mean volume (Bld) [Entitic vol] 7.1 fL Low 7.4-10.4 [facility] ([place] Comment on above: Performed By: #### A DIFF, LIP, MDW, CMP, GFR, ANEU, CBC #### [address] [address] RBC 4.10 10 6/mcL Normal 4.04-6.13 [facility] ([place] Comment on above: Performed By: #### A DIFF, LIP, MDW, CMP, GFR, ANEU, CBC #### [address] [address] WBC 10.6 10 3/mcL Normal 4.6-10.8 [facility] ([place] Comment on above: Performed By: #### A DIFF, LIP, MDW, CMP, GFR, ANEU, CBC #### [address] [address] CMPon 10-22-2022 Albumin Level 2.9 G/dL Low 3.4-4.8 [facility] ([place] Comment on above: Performed By: #### A DIFF, LIP, MDW, CMP, GFR, ANEU, CBC #### [address] [address] Albumin/Globulin [Mass ratio] 0.8 {ratio} Low 1.1-2.5 [facility] ([place] Comment on above: Performed By: #### A DIFF, LIP, MDW, CMP, GFR, ANEU, CBC #### [address] [address] ALP [Catalytic activity/Vol] 98 U/L Normal 40-135 [facility] ([place] Comment on above: Performed By: #### A DIFF, LIP, MDW, CMP, GFR, ANEU, CBC #### [address] [address] ALT [Catalytic activity/Vol] 46 U/L Normal 16-63 [facility] ([place] Comment on above: Performed By: #### A DIFF, LIP, MDW, CMP, GFR, ANEU, CBC #### [address] [address] AST [Catalytic activity/Vol] 29 U/L Normal 10-40 [facility] ([place] Comment on above: Performed By: #### A DIFF, LIP, MDW, CMP, GFR, ANEU, CBC #### [address] [address] Bili Total 0.3 mg/dL Normal 0.2-1.0 [facility] ([place]) Comment on above: Result Comment: Use of this assay is not recommended for patients undergoing treatment with eltrombopag due to the potential for falsely elevated results. Performed By: #### A DIFF, LIP, MDW, CMP, GFR, ANEU, CBC #### [address] [address] BUN/Creatinine Ratio 17 ratio Normal 7-27 [facility] ([place] Comment on above: Performed By: #### A DIFF, LIP, MDW, CMP, GFR, ANEU, CBC #### [address] [address] Calcium [Mass/Vol] 9.2 mg/dL Normal 8.4-10.2 [facility] ([place]) Comment on above: Performed By: #### A DIFF, LIP, MDW, CMP, GFR, ANEU, CBC #### [address] [address] Chloride [Moles/Vol] 96 mmol/L Low 98-107 [facility] ([place] Comment on above: Performed By: #### A DIFF, LIP, MDW, CMP, GFR, ANEU, CBC #### [address] [address] CO2 [Moles/Vol] 33 mmol/L High 23-31 [facility] ([place] Comment on above: Performed By: #### A DIFF, LIP, MDW, CMP, GFR, ANEU, CBC #### [address] [address] Creatinine [Mass/Vol] 1.22 mg/dL Normal 0.70-1.30 [facility] ([place] Comment on above: Performed By: #### A DIFF, LIP, MDW, CMP, GFR, ANEU, CBC #### [address] [address] Electrolyte Balance 5.0 mEq/L Normal 4.0-15.0 [facility] ([place] Comment on above: Performed By: #### A DIFF, LIP, MDW, CMP, GFR, ANEU, CBC #### [address] [address] Globulin 3.5 G/dL Normal [facility] ([place] Comment on above: Performed By: #### A DIFF, LIP, MDW, CMP, GFR, ANEU, CBC #### [address] [address] Glucose [Mass/Vol] 111 mg/dL High 83-110 [facility] ([place] Comment on above: Performed By: #### A DIFF, LIP, MDW, CMP, GFR, ANEU, CBC #### [address] [address] Potassium [Moles/Vol] 4.3 mmol/L Normal 3.5-5.1 [facility] [place] Comment on above: Performed By: #### A DIFF, LIP, MDW, CMP, GFR, ANEU, CBC #### [address] [address] Sodium [Moles/Vol] 134 mmol/L Low 136-145 [facility] ([place]) Comment on above: Performed By: #### A DIFF, LIP, MDW, CMP, GFR, ANEU, CBC #### [address] [address] Total Protein 6.4 G/dL Normal 6.4-8.2 [facility] ([place] Comment on above: Performed By: #### A DIFF, LIP, MDW, CMP, GFR, ANEU, CBC #### [address] [address] Urea nitrogen [Mass/Vol] 21 mg/dL High 7-18 [facility] ([place] Comment on above: Performed By: #### A DIFF, LIP, MDW, CMP, GFR, ANEU, CBC #### [address] [address] LABORATORYOrdered By: SYSTEM SYSTEM on 10-22-2022 Albumin [...] 10-22-2022 Lipase Level 32 U/L Normal 16-77 [facility] ([place] Comment on above: Performed By: #### A DIFF, LIP, MDW, CMP, GFR, ANEU, CBC #### [address] [place], [place] [address] Absolute lymphocyte countOrd ered By: Dr. Jauregui on 10-21-2022 Lymphocytes Auto (Unsp spec) [#/Vol] 0.85 10*3/uL 0.83-4.51 [facility] Basophil percentageOrdered B y: Dr. Jauregui on 10-21-2022 Basophil percentage 25-50 SEEN /hpf 0-5 [facility] Basophils/100 WBC (Bld) 0.6 % 0-1 [facility] Bilirubin [Mass/Vol] 0.30 mg/dL 0.20-1.00 [facility] Comment on above: For patients on eltr ombopag therapy, use of Dimension [place] TBIL is not recommended. Chloride [Moles/Vol] 99 mmol/L 98-107 [facility] Eosinophils/100 WBC (Bld) 0.4 % 0-5 [facility] Glucose [Mass/Vol] 104 mg/dL 74-106 [facility] Comment on above: Fasting Glucose resu lt from 100 to 125 mg/dL suggests IMPAIRED HOMEOSTASIS per A.D.A. criteria. Neutrophils (Bld) [#/Vol] 8.8 10*3/uL 2.0-7.7 [facility] Neutrophils/100 WBC (Bld) 84.2 % 47-70 [facility] Potassium [Moles/Vol] 3.6 mmol/L 3.5-5.1 [facility] Protein [Mass/Vol] 7.2 g/dL 6.4-8.2 [facility] Sodium [Moles/Vol] 135 mmol/L 136-145 [facility] WBC (Bld) [#/Vol] 10.4 10*3/uL 4.4-11.0 [facility] Bilirubin Test strip Ql (U)O rdered By: Dr. Jauregui on 10-21-2022 Bilirubin Ql (U) Negative Negative [facility] Blood erythrocytes count (nu mber/volume)Ordered By: Dr. Jauregui on 10-21-2022 RBC (Bld) [#/Vol] 4.51 10*6/uL 4.6-6.2 [facility] Blood hemoglobin measurement (mass/volume)Ordered By: Dr. Jauregui on 10-21-2022 Hemoglobin (Bld) [Mass/Vol] 14.4 g/dL 13.0-16.5 [facility] Blood lymphocytes/100 leukoc ytesOrdered By: Dr. Jauregui on 10-21-2022 Lymphocytes/100 WBC (Bld) 8.2 % 19-41 [facility] Blood monocytes/100 leukocyt esOrdered By: Dr. Jauregui on 10-21-2022 Monocytes/100 WBC (Bld) 5.4 % 0-10 [facility] Blood platelet mean volumeOr dered By: Dr. Jauregui on 10-21-2022 Platelet mean volume (Bld) [Entitic vol] 8.9 fL 6.2-12.0 [facility] Culture, urineOrdered By: Joseph Jauregui on 10-21-2022 Bacteria identified Cx Nom (U) Presumptive E. coli [facility] Determination of erythrocyte mean corpuscular volume (MCV)Ordered By: Dr. Jauregui on 10-21-2022 MCV (RBC) [Entitic vol] 95.6 fL 80-94 [facility] Hematocrit Auto (Bld) [Volum e fraction]Ordered By: Dr. Jauregui on 10-21-2022 Hematocrit (Bld) [Volume fraction] 43.1 % 40-54 [facility] Ketones Test strip Ql (U)Ord ered By: Dr. Jauregui on 10-21-2022 Ketones Ql (U) Negative Negative [facility] Laboratory - Chemistry and C hemistry - challengeOrdered By: Dr. Jauregui on 10-21-2022 ALP [Catalytic activity/Vol] 84 U/L 45-117 [facility] ALT [Catalytic activity/Vol] 41 U/L 16-61 [facility] CO2 [Moles/Vol] 28.0 mmol/L 21.0-32.0 [facility] Globulin (S) [Mass/Vol] 4.2 g/dL 2.2-4.2 [facility] Lipase [Catalytic activity/Vol] 42 U/L 13-75 [facility] Comment on above: Please note:LIPASE r evised reference range effective 22. New Lipase methodology. Expected to produce lower values than the previous assay method. NEW Reference Range: 13 - 75 U/L Urea nitrogen/Creatinine [Mass ratio] 16.3 mg/mg 10-20 [facility] Laboratory - Hematology and Cell countsOrdered By: Dr. Jauregui on 10-21-2022 Erythrocyte distribution width (RBC) [Entitic vol] 45.7 fL 35.1-43.9 [facility] Erythrocyte distribution width (RBC) [Ratio] 13.0 % 11.6-14.6 [facility] Immature granulocytes/100 WBC (Bld) 1.200 % 0.0-0.9 [facility] Comment on above: IG% - Immature Granu locytes (promyelocytes, myelocytes and metamyelocytes) > 1% indicates that a LEFT SHIFT is Present. MCH (RBC) [Entitic mass] 31.9 pg 27.0-32.0 [facility] Nucleated RBC/100 WBC (Bld) [Ratio] 0 % 0-5 [facility] MCHC Auto (RBC) [Mass/Vol]Or dered By: Dr. Jauregui on 10-21-2022 MCHC (RBC) [Mass/Vol] 33.4 g/dL 32-36 [facility] Mucus LM Ql (Urine sed)Order ed By: Dr. Jauregui on 10-21-2022 Mucus Ql (Urine sed) 0 SEEN /hpf [facility] Nitrite Test strip Ql (U)Ord ered By: Dr. Jauregui on 10-21-2022 Nitrite Ql (U) Negative Negative [facility] No Panel InformationOrdered By: Dr. Jauregui on 10-21-2022 Estimated GFR (MDRD) Amer 90 mL/min >60 [facility] Comment on above: GFR Calc Estimated GFR (MDRD) Non-Af Amer 74 mL/min >60 [facility] Comment on above: Non- GFR Calc Platelets bldOrdered By: Dr. Jauregui on 10-21-2022 Platelets (Bld) [#/Vol] 339 10*3/uL 150-450 [facility] Protein Test strip Ql (U)Ord ered By: Dr. Jauregui on 10-21-2022 Protein Ql (U) 100 mg/dl Negative [facility] Serum or plasma albumin luis urement (mass/volume)Ordered By: Dr. Jauregui on 10-21-2022 Albumin [Mass/Vol] 3.0 g/dL 3.2-5.0 [facility] Serum or plasma albumin/glob ulin mass ratioOrdered By: Dr. Jauregui on 10-21-2022 Albumin/Globulin [Mass ratio] 0.7 {ratio} 0.9-2.4 [facility] Serum or plasma calcium luis urement (mass/volume)Ordered By: Dr. Jauregui on 10-21-2022 Calcium [Mass/Vol] 9.8 mg/dL 8.5-10.1 [facility] Serum or plasma creatinine m easurement (mass/volume)Ordered By: Dr. Jauregui on 10-21-2022 Creatinine [Mass/Vol] 1.04 mg/dL 0.70-1.30 [facility] Comment on above: The validity of the calculated GFR & GFRAA in patients over 70 years has not been determined. Clinical correlation is essential. Serum or plasma urea nitroge n measurement (mass/volume)Ordered By: Dr. Jauregui on 10-21-2022 Urea nitrogen [Mass/Vol] 17 mg/dL 7-18 [facility] Squamous epithelial cells de tection in urine sediment by light microscopyOrdered By: Dr. Jauregui on 10-21-2022 Epithelial cells.squamous LM Ql (Urine sed) 0-5 SEEN /hpf 0-5 [facility] Thin prep Papanicolaou smear with manual screeningOrdered By: Dr. Jauregui on 10-21-2022 Thin prep Papanicolaou smear with manual screening 20 U/L 15-37 [facility] Thin prep Papanicolaou smear with manual screening 8 5-15 [facility] Urine blood detectionOrdered By: Dr. Jauregui on 10-21-2022 RBC Ql (U) 50 /ul Negative [facility] RBC Ql (U) 0 SEEN /hpf 0-5 [facility] Urine clarityOrdered By: Dr. Jauregui on 10-21-2022 Clarity (U) Sl. Cloudy Clear [facility] Urine color determinationOrd ered By: Dr. Jauregui on 10-21-2022 Color (U) Yellow Yellow [facility] Urine glucose detectionOrder ed By: Dr. Jauregui on 10-21-2022 Glucose Ql (U) Normal mg/dl Normal [facility] Urine leukocyte esterase det ection by dipstickOrdered By: Dr. Jauregui on 10-21-2022 Leukocyte esterase Test strip Ql (U) 500 /ul Negative [facility] Urine pHOrdered By: Dr. Babs mckeon on 10-21-2022 pH (U) 6.0 [pH] 5.0 - 8.0 [facility] Urine sediment bacteria coun t by microscopy (number/high power field)Ordered By: Dr. Jauregui on 10-21-2022 Bacteria LM.HPF (Urine sed) [#/Area] 2 /[HPF] None Seen [facility] Urine specific gravity measu rementOrdered By: Dr. Jauregui on 10-21-2022 Specific gravity (U) [Rel density] 1.010 1.002-1.030 [facility] Urobilinogen Auto test strip Ql (U)Ordered By: Dr. Jauregui on 10-21-2022 Urobilinogen Ql (U) Normal mg/dl Normal [facility] No Panel InformationOrdered By: Андрей Cooley on 08-11-2022 Miscellaneous Test See comment [facility] Comment on above: TEST RESULT LIMITSCa rbamazepine(Tegretol), S 7.1 ug/mL 4.0-12.0 In conjunction with other antiepileptic drugs Therapeutic 4.0 - 8.0 Toxicity 9.0 - 12.0 Carbamazepine alone Therapeutic 8.0 - 12.0 Detection Limit = 2.0 <2.0 indicated None Detected Verified by repeat analysis TESTING PERFORMED AT [facility]. ORIGINAL REPORT ON FILE IN LAB CONTAINS ADDITIONAL TEST SITE INFORMATION. No Panel InformationOrdered By: Андрей Cooley on 07-12-2022 Miscellaneous Test See comment [facility] Comment on above: TEST RESULT LIMITSCarbamazepine(Tegretol),SCarbamazepine(Tegretol), S 6.3 ug/mL 4.0-12.0 In conjunction with other antiepileptic drugs Therapeutic 4.0 - 8.0 Toxicity 9.0 - 12.0 Carbamazepine alone Therapeutic 8.0 - 12.0 Detection Limit = 2.0 <2.0 indicated None Detected ____ TESTING PERFORMED AT [facility]. ORIGINAL REPORT ON FILE IN LAB CONTAINS ADDITIONAL TEST SITE INFORMATION. Basophil percentageOrdered B y: Андрей Cooley on 06-14-2022 Bilirubin [Mass/Vol] 0.20 mg/dL 0.20-1.00 [facility] Comment on above: For patients on eltr ombopag therapy, use of Dimension [place] TBIL is not recommended. Chloride [Moles/Vol] 104 mmol/L 98-107 [facility] Cholesterol [Mass/Vol] 139 mg/dL <200 [facility] Comment on above: <200 mg/dL Desirable 200-240 mg/dL Borderline >240 mg/dL High Risk Glucose [Mass/Vol] 76 mg/dL 74-106 [facility] Potassium [Moles/Vol] 3.9 mmol/L 3.5-5.1 [facility] Protein [Mass/Vol] 6.4 g/dL 6.4-8.2 [facility] Sodium [Moles/Vol] 139 mmol/L 136-145 [facility] Triglyceride [Mass/Vol] 111 mg/dL <199 [facility] Comment on above: The drugs N-Acetylcy steine and Metamizole may falsely depress this assay.Serum Triglycerides Reference Interval Normal <150 mg/dL Borderline high 150 - 199 mg/dL High 200 - 499 mg/dL Very High > or = 500 mg/dL WBC (Bld) [#/Vol] 5.5 10*3/uL 4.4-11.0 [facility] Blood erythrocytes count (nu mber/volume)Ordered By: Андрей Cooley on 06-14-2022 RBC (Bld) [#/Vol] 4.57 10*6/uL 4.6-6.2 [facility] Blood hemoglobin measurement (mass/volume)Ordered By: Андрей Cooley on 06-14-2022 Hemoglobin (Bld) [Mass/Vol] 15.0 g/dL 13.0-16.5 [facility] Blood platelet mean volumeOr dered By: Андрей Cooley on 06-14-2022 Platelet mean volume (Bld) [Entitic vol] 10.0 fL 6.2-12.0 [facility] Determination of erythrocyte mean corpuscular volume (MCV)Ordered By: Андрей Cooley on 06-14-2022 MCV (RBC) [Entitic vol] 100.4 fL 80-94 [facility] Hematocrit Auto (Bld) [Volum e fraction]Ordered By: Андрей Cooley on 06-14-2022 Hematocrit (Bld) [Volume fraction] 45.9 % 40-54 [facility] Laboratory - Chemistry and C hemistry - challengeOrdered By: Андрей Cooley on 06-14-2022 ALP [Catalytic activity/Vol] 68 U/L 45-117 [facility] ALT [Catalytic activity/Vol] 31 U/L 16-61 [facility] CO2 [Moles/Vol] 31.0 mmol/L 21.0-32.0 [facility] Globulin (S) [Mass/Vol] 3.0 g/dL 2.2-4.2 [facility] Urea nitrogen/Creatinine [Mass ratio] 22.5 mg/mg 10-20 [facility] Laboratory - Hematology and Cell countsOrdered By: Андрей Cooley on 06-14-2022 Erythrocyte distribution width (RBC) [Entitic vol] 51.8 fL 35.1-43.9 [facility] Erythrocyte distribution width (RBC) [Ratio] 14.2 % 11.6-14.6 [facility] MCH (RBC) [Entitic mass] 32.8 pg 27.0-32.0 [facility] MCHC Auto (RBC) [Mass/Vol]Or dered By: Андрей Cooley on 06-14-2022 MCHC (RBC) [Mass/Vol] 32.7 g/dL 32-36 [facility] No Panel InformationOrdered By: Андрей Cooley on 06-14-2022 Estimated GFR (MDRD) Amer 108 mL/min >60 [facility] Comment on above: GFR Calc Estimated GFR (MDRD) Non-Af Amer 89 mL/min >60 [facility] Comment on above: Non- GFR Calc Vitamin D 25-Hydroxy 40.8 ng/mL [facility] Comment on above: Vitamin D 25(OH) Sta tus Range Deficiency <20 ng/mL (50nmol/L) Insufficiency 20 - 30 ng/mL (50 - 75 nmol/L) Sufficiency 30 - 100 ng/mL (75 - 250 nmol/L) Toxicity >100 ng/mL (>250 nmol/L) Platelets bldOrdered By: Italia Cooley on 06-14-2022 Platelets (Bld) [#/Vol] 239 10*3/uL 150-450 [facility] Serum or plasma albumin luis urement (mass/volume)Ordered By: Андрей Cooley on 06-14-2022 Albumin [Mass/Vol] 3.4 g/dL 3.2-5.0 [facility] Serum or plasma albumin/glob ulin mass ratioOrdered By: Андрей Cooley on 06-14-2022 Albumin/Globulin [Mass ratio] 1.1 {ratio} 0.9-2.4 [facility] Serum or plasma calcium luis urement (mass/volume)Ordered By: Андрей Cooley on 06-14-2022 Calcium [Mass/Vol] 9.1 mg/dL 8.5-10.1 [facility] Serum or plasma cholesterol in HDL measurement (mass/volume)Ordered By: Андрей Cooley on 06-14-2022 Cholesterol in HDL [Mass/Vol] 65 mg/dL >40 [facility] Comment on above: The drugs N-Acetylcy steine and Metamizole may falsely depress this assay. Reference Range HDL <40 mg/dL Low HDL Cholesterol HDL >or= 60 mg/dL High HDL Cholesterol Serum or plasma cholesterol in VLDL measurement (mass/volume)Ordered By: Андрей Cooley on 06-14-2022 Cholesterol in VLDL [Mass/Vol] 22 mg/dL 5-40 [facility] Serum or plasma creatinine m easurement (mass/volume)Ordered By: Андрей Cooley on 06-14-2022 Creatinine [Mass/Vol] 0.89 mg/dL 0.70-1.30 [facility] Comment on above: The validity of the calculated GFR & GFRAA in patients over 70 years has not been determined. Clinical correlation is essential. Serum or plasma low density lipoprotein (LDL) cholesterol measurement (mass/volume)Ordered By: Андрей Cooley on 06-14-2022 Cholesterol in LDL [Mass/Vol] 52 mg/dL 0-130 [facility] Serum or plasma urea nitroge n measurement (mass/volume)Ordered By: Андрей Cooley on 06-14-2022 Urea nitrogen [Mass/Vol] 20 mg/dL 7-18 [facility] Thin prep Papanicolaou smear with manual screeningOrdered By: Андрей Cooley on 06-14-2022 Thin prep Papanicolaou smear with manual screening 13 U/L 15-37 [facility] Thin prep Papanicolaou smear with manual screening 4 5-15 [facility] No Panel InformationOrdered By: Андрей Cooley on 05-13-2022 Miscellaneous Test See comment [facility] Comment on above: TEST RESULT LIMITSCa rbamazepine(Tegretol), S 6.2 ug/mL 4.0-12.0 In conjunction with other antiepileptic drugs Therapeutic 4.0 - 8.0 Toxicity 9.0 - 12.0 Carbamazepine alone Therapeutic 8.0 - 12.0 Detection Limit = 2.0 <2.0 indicated None Detected ____ TESTING PERFORMED AT [facility]. ORIGINAL REPORT ON FILE IN LAB CONTAINS ADDITIONAL TEST SITE INFORMATION. Absolute lymphocyte counton 03-15-2022 Lymphocytes Auto (Unsp spec) [#/Vol] 1.09 10*3/uL 0.83-4.51 [facility] Work Phone: Basophil percentageon 2021 Basophils/100 WBC (Bld) 0.7 % 0-1 [facility] Work Phone: Bilirubin [Mass/Vol] 0.30 mg/dL 0.20-1.00 [facility] Work Phone: Comment on above: For patients on eltr ombopag therapy, use of Dimension [place] TBIL is not recommended. Chloride [Moles/Vol] 96 mmol/L 98-107 [facility] Work Phone: Cholesterol [Mass/Vol] 137 mg/dL <200 [facility] Work Phone: Comment on above: <200 mg/dL Desirable 200-240 mg/dL Borderline >240 mg/dL High Risk Eosinophils/100 WBC (Bld) 1.0 % 0-5 [facility] Work Phone: Glucose [Mass/Vol] 84 mg/dL 74-106 [facility] Work Phone: Neutrophils (Bld) [#/Vol] 5.3 10*3/uL 2.0-7.7 [facility] Work Phone: Neutrophils/100 WBC (Bld) 74.4 % 47-70 [facility] Work Phone: Potassium [Moles/Vol] 3.5 mmol/L 3.5-5.1 [facility] Work Phone: [phone] Comment on above: Slight Hemolysis, Re sult may be falsely increased. Protein [Mass/Vol] 7.2 g/dL 6.4-8.2 [facility] Work Phone: [phone] Sodium [Moles/Vol] 133 mmol/L 136-145 [facility] Work Phone: [phone] Triglyceride [Mass/Vol] 121 mg/dL <199 [facility] Work Phone: [phone] Comment on above: The drugs N-Acetylcy steine and Metamizole may falsely depress this assay.Serum Triglycerides Reference Interval Normal <150 mg/dL Borderline high 150 - 199 mg/dL High 200 - 499 mg/dL Very High > or = 500 mg/dL WBC (Bld) [#/Vol] 7.2 10*3/uL 4.4-11.0 [facility] Work Phone: [phone] Blood erythrocytes count (nu mber/volume)on 03-15-2022 RBC (Bld) [#/Vol] 5.31 10*6/uL 4.6-6.2 [facility] Work Phone: [phone] Blood hemoglobin measurement (mass/volume)on 03-15-2022 Hemoglobin (Bld) [Mass/Vol] 17.0 g/dL 13.0-16.5 [facility] Work Phone: [phone] Blood lymphocytes/100 leukoc yteson 03-15-2022 Lymphocytes/100 WBC (Bld) 15.2 % 19-41 [facility] Work Phone: [phone] Blood monocytes/100 leukocyt eson 03-15-2022 Monocytes/100 WBC (Bld) 7.9 % 0-10 [facility] Work Phone: [phone] Blood platelet mean volumeon 03-15-2022 Platelet mean volume (Bld) [Entitic vol] 9.8 fL 6.2-12.0 [facility] Work Phone: [phone] Determination of erythrocyte mean corpuscular volume (MCV)on 03-15-2022 MCV (RBC) [Entitic vol] 93.2 fL 80-94 [facility] Work Phone: Hematocrit Auto (Bld) [Volum e fraction]on 03-15-2022 Hematocrit (Bld) [Volume fraction] 49.5 % 40-54 [facility] Work Phone: INR in Blood by Coagulation assayon 03-15-2022 INR Coag (Bld) [Relative time] 0.9 {INR} [facility] Work Phone: Laboratory - Chemistry and C hemistry - challengeon 03-15-2022 ALP [Catalytic activity/Vol] 71 U/L 45-117 [facility] Work Phone: ALT [Catalytic activity/Vol] 41 U/L 16-61 [facility] Work Phone: CO2 [Moles/Vol] 28.0 mmol/L 21.0-32.0 [facility] Work Phone: Globulin (S) [Mass/Vol] 4.1 g/dL 2.2-4.2 [facility] Work Phone: Urea nitrogen/Creatinine [Mass ratio] 21.2 mg/mg 10-20 [facility] Work Phone: Laboratory - Coagulationon 0 03-15-2022 PT Coag (PPP) [Time] 11.8 s 11.7-14.9 [facility] Work Phone: Laboratory - Hematology and Cell countson 03-15-2022 Erythrocyte distribution width (RBC) [Entitic vol] 44.0 fL 35.1-43.9 [facility] Work Phone: Erythrocyte distribution width (RBC) [Ratio] 12.7 % 11.6-14.6 [facility] Work Phone: Immature granulocytes/100 WBC (Bld) 0.800 % 0.0-0.9 [facility] Work Phone: Comment on above: IG% - Immature Granu locytes (promyelocytes, myelocytes and metamyelocytes) > 1% indicates that a LEFT SHIFT is Present. MCH (RBC) [Entitic mass] 32.0 pg 27.0-32.0 [facility] Work Phone: [phone] Nucleated RBC/100 WBC (Bld) [Ratio] 0 % 0-5 [facility] Work Phone: [phone] MCHC Auto (RBC) [Mass/Vol]on 03-15-2022 MCHC (RBC) [Mass/Vol] 34.3 g/dL 32-36 [facility] Work Phone: No Panel Informationon 03-15 Carbamazepine (Tegretol) Level 7.3 ug/mL 4.0-12.0 [facility] Work Phone: [phone] Estimated GFR (MDRD) Amer 101 mL/min >60 [facility] Work Phone: [phone] Comment on above: GFR Calc Estimated GFR (MDRD) Non-Af Amer 84 mL/min >60 [facility] Work Phone: [phone] Comment on above: Non- GFR Calc Platelets bldon 03-15-2022 Platelets (Bld) [#/Vol] 327 10*3/uL 150-450 [facility] Work Phone: [phone] Serum or plasma albumin luis urement (mass/volume)on 03-15-2022 Albumin [Mass/Vol] 3.1 g/dL 3.2-5.0 [facility] Work Phone: [phone] Serum or plasma albumin/glob ulin mass ratioon 03-15-2022 Albumin/Globulin [Mass ratio] 0.8 {ratio} 0.9-2.4 [facility] Work Phone: [phone] Serum or plasma calcium luis urement (mass/volume)on 03-15-2022 Calcium [Mass/Vol] 9.1 mg/dL 8.5-10.1 [facility] Work Phone: [phone] Serum or plasma cholesterol in HDL measurement (mass/volume)on 03-15-2022 Cholesterol in HDL [Mass/Vol] 72 mg/dL >40 [facility] Work Phone: Comment on above: The drugs N-Acetylcy steine and Metamizole may falsely depress this assay. Reference Range HDL <40 mg/dL Low HDL Cholesterol HDL >or= 60 mg/dL High HDL Cholesterol Serum or plasma cholesterol in VLDL measurement (mass/volume)on 03-15-2022 Cholesterol in VLDL [Mass/Vol] 24 mg/dL 5-40 [facility] Work Phone: Serum or plasma creatinine m easurement (mass/volume)on 03-15-2022 Creatinine [Mass/Vol] 0.94 mg/dL 0.70-1.30 [facility] Work Phone: Comment on above: The validity of the calculated GFR & GFRAA in patients over 70 years has not been determined. Clinical correlation is essential. Serum or plasma low density lipoprotein (LDL) cholesterol measurement (mass/volume)on 03-15-2022 Cholesterol in LDL [Mass/Vol] 41 mg/dL 0-130 [facility] Work Phone: [phone] Serum or plasma urea nitroge n measurement (mass/volume)on 03-15-2022 Urea nitrogen [Mass/Vol] 20 mg/dL 7-18 [facility] Work Phone: [phone] Thin prep Papanicolaou smear with manual screeningon 03-15-2022 Thin prep Papanicolaou smear with manual screening 54 U/L 15-37 [facility] Work Phone: Comment on above: Slight Hemolysis, Re sult may be falsely increased. Thin prep Papanicolaou smear with manual screening 9 5-15 [facility] Work Phone: [phone] Absolute lymphocyte counton 03-02-2022 Lymphocytes Auto (Unsp spec) [#/Vol] 1.54 10*3/uL 0.83-4.51 [facility] Work Phone: [phone] Basophil percentageon 2021 Basophils/100 WBC (Bld) 0.9 % 0-1 [facility] Work Phone: [phone] Bilirubin [Mass/Vol] 0.20 mg/dL 0.20-1.00 [facility] Work Phone: Comment on above: For patients on eltr ombopag therapy, use of Dimension [place] TBIL is not recommended. Chloride [Moles/Vol] 101 mmol/L 98-107 [facility] Work Phone: Eosinophils/100 WBC (Bld) 1.0 % 0-5 [facility] Work Phone: Glucose [Mass/Vol] 98 mg/dL 74-106 [facility] Work Phone: Neutrophils (Bld) [#/Vol] 4.6 10*3/uL 2.0-7.7 [facility] Work Phone: Neutrophils/100 WBC (Bld) 67.4 % 47-70 [facility] Work Phone: Potassium [Moles/Vol] 3.8 mmol/L 3.5-5.1 [facility] Work Phone: Protein [Mass/Vol] 7.5 g/dL 6.4-8.2 [facility] Work Phone: Sodium [Moles/Vol] 138 mmol/L 136-145 [facility] Work Phone: WBC (Bld) [#/Vol] 6.8 10*3/uL 4.4-11.0 [facility] Work Phone: Blood erythrocytes count (nu mber/volume)on 03-02-2022 RBC (Bld) [#/Vol] 5.14 10*6/uL 4.6-6.2 [facility] Work Phone: Blood hemoglobin measurement (mass/volume)on 03-02-2022 Hemoglobin (Bld) [Mass/Vol] 16.3 g/dL 13.0-16.5 [facility] Work Phone: Blood lymphocytes/100 leukoc yteson 03-02-2022 Lymphocytes/100 WBC (Bld) 22.8 % 19-41 [facility] Work Phone: Blood monocytes/100 leukocyt eson 03-02-2022 Monocytes/100 WBC (Bld) 7.3 % 0-10 [facility] Work Phone: Blood platelet mean volumeon 03-02-2022 Platelet mean volume (Bld) [Entitic vol] 9.9 fL 6.2-12.0 [facility] Work Phone: Determination of erythrocyte mean corpuscular volume (MCV)on 03-02-2022 MCV (RBC) [Entitic vol] 94.9 fL 80-94 [facility] Work Phone: Hematocrit Auto (Bld) [Volum e fraction]on 03-02-2022 Hematocrit (Bld) [Volume fraction] 48.8 % 40-54 [facility] Work Phone: Laboratory - Chemistry and C hemistry - challengeon 03-02-2022 ALP [Catalytic activity/Vol] 67 U/L 45-117 [facility] Work Phone: ALT [Catalytic activity/Vol] 27 U/L 16-61 [facility] Work Phone: CO2 [Moles/Vol] 30.0 mmol/L 21.0-32.0 [facility] Work Phone: [phone] Globulin (S) [Mass/Vol] 3.7 g/dL 2.2-4.2 [facility] Work Phone: Lipase [Catalytic activity/Vol] 95 U/L 73-393 [facility] Work Phone: Urea nitrogen/Creatinine [Mass ratio] 14.8 mg/mg 10-20 [facility] Work Phone: [phone] Laboratory - Hematology and Cell countson 03-02-2022 Erythrocyte distribution width (RBC) [Entitic vol] 47.0 fL 35.1-43.9 [facility] Work Phone: Erythrocyte distribution width (RBC) [Ratio] 13.9 % 11.6-14.6 [facility] Work Phone: Immature granulocytes/100 WBC (Bld) 0.600 % 0.0-0.9 [facility] Work Phone: Comment on above: IG% - Immature Granu locytes (promyelocytes, myelocytes and metamyelocytes) > 1% indicates that a LEFT SHIFT is Present. MCH (RBC) [Entitic mass] 31.7 pg 27.0-32.0 [facility] Work Phone: Nucleated RBC/100 WBC (Bld) [Ratio] 0 % 0-5 [facility] Work Phone: [phone] MCHC Auto (RBC) [Mass/Vol]on 03-02-2022 MCHC (RBC) [Mass/Vol] 33.4 g/dL 32-36 [facility] Work Phone: No Panel Informationon 03-02 Estimated Creatinine Clearance Calc 59.81 ml/min [facility] Work Phone: Estimated GFR (MDRD) Amer 86 mL/min >60 [facility] Work Phone: Comment on above: GFR Calc Estimated GFR (MDRD) Non-Af Amer 71 mL/min >60 [facility] Work Phone: Comment on above: Non- GFR Calc Troponin I High Sensitivity 18 pg/mL 3.0-78.0 [facility] Work Phone: Comment on above: Please Note: [place] t Units and Gender Specific Reference Ranges. For more information see Policy Stat Procedure [place] High Sensitivity Troponin (TNIH) and attachments. Platelets bldon 03-02-2022 Platelets (Bld) [#/Vol] 296 10*3/uL 150-450 [facility] Work Phone: [phone] Serum or plasma albumin luis urement (mass/volume)on 03-02-2022 Albumin [Mass/Vol] 3.8 g/dL 3.2-5.0 [facility] Work Phone: [phone] Serum or plasma albumin/glob ulin mass ratioon 03-02-2022 Albumin/Globulin [Mass ratio] 1.0 {ratio} 0.9-2.4 [facility] Work Phone: Serum or plasma calcium luis urement (mass/volume)on 03-02-2022 Calcium [Mass/Vol] 9.7 mg/dL 8.5-10.1 [facility] Work Phone: Serum or plasma creatinine m easurement (mass/volume)on 03-02-2022 Creatinine [Mass/Vol] 1.08 mg/dL 0.70-1.30 [facility] Work Phone: Comment on above: The validity of the calculated GFR & GFRAA in patients over 70 years has not been determined. Clinical correlation is essential. Serum or plasma urea nitroge n measurement (mass/volume)on 03-02-2022 Urea nitrogen [Mass/Vol] 16 mg/dL 7-18 [facility] Work Phone: Thin prep Papanicolaou smear with manual screeningon 03-02-2022 Thin prep Papanicolaou smear with manual screening 15 U/L 15-37 [facility] Work Phone: Thin prep Papanicolaou smear with manual screening 7 5-15 [facility] Work Phone: Basophil percentageon 2021 Chloride [Moles/Vol] 99 mmol/L 98-107 [facility] Work Phone: Glucose [Mass/Vol] 110 mg/dL 74-106 [facility] Work Phone: Comment on above: Fasting Glucose resu lt from 100 to 125 mg/dL suggests IMPAIRED HOMEOSTASIS per A.D.A. criteria. Potassium [Moles/Vol] 4.0 mmol/L 3.5-5.1 [facility] Work Phone: Sodium [Moles/Vol] 135 mmol/L 136-145 [facility] Work Phone: WBC (Bld) [#/Vol] 6.0 10*3/uL 4.4-11.0 [facility] Work Phone: Basophil percentage 0 SEEN /hpf 0-5 [facility] Work Phone: [phone] Bilirubin Test strip Ql (U)o n 08-12-2022 Bilirubin Ql (U) Negative Negative [facility] Work Phone: Blood erythrocytes count (nu mber/volume)on 01-28-2022 RBC (Bld) [#/Vol] 5.14 10*6/uL 4.6-6.2 [facility] Work Phone: Blood hemoglobin measurement (mass/volume)on 01-28-2022 Hemoglobin (Bld) [Mass/Vol] 16.2 g/dL 13.0-16.5 [facility] Work Phone: Blood platelet mean volumeon 01-28-2022 Platelet mean volume (Bld) [Entitic vol] 9.8 fL 6.2-12.0 [facility] Work Phone: Determination of erythrocyte mean corpuscular volume (MCV)on 01-28-2022 MCV (RBC) [Entitic vol] 95.5 fL 80-94 [facility] Work Phone: [phone] Hematocrit Auto (Bld) [Volum e fraction]on 01-28-2022 Hematocrit (Bld) [Volume fraction] 49.1 % 40-54 [facility] Work Phone: Ketones Test strip Ql (U)on 01-28-2022 Ketones Ql (U) Negative Negative [facility] Work Phone: Laboratory - Chemistry and C hemistry - challengeon 01-28-2022 CO2 [Moles/Vol] 31.0 mmol/L 21.0-32.0 [facility] Work Phone: Urea nitrogen/Creatinine [Mass ratio] 11.8 mg/mg 10-20 [facility] Work Phone: [phone] Laboratory - Hematology and Cell countson 01-28-2022 Erythrocyte distribution width (RBC) [Entitic vol] 54.1 fL 35.1-43.9 [facility] Work Phone: [phone] Erythrocyte distribution width (RBC) [Ratio] 16.9 % 11.6-14.6 [facility] Work Phone: [phone] MCH (RBC) [Entitic mass] 31.5 pg 27.0-32.0 [facility] Work Phone: [phone] MCHC Auto (RBC) [Mass/Vol]on 01-28-2022 MCHC (RBC) [Mass/Vol] 33.0 g/dL 32-36 [facility] Work Phone: [phone] Mucus LM Ql (Urine sed)on Mucus Ql (Urine sed) 0 SEEN /hpf [facility] Work Phone: [phone] Nitrite Test strip Ql (U)on 01-28-2022 Nitrite Ql (U) Negative Negative [facility] Work Phone: [phone] Panel Informationon 01-28 Estimated Creatinine Clearance Calc 63.33 ml/min [facility] Work Phone: [phone] Estimated GFR (MDRD) Amer 92 mL/min >60 [facility] Work Phone: [phone] Comment on above: GFR Calc Estimated GFR (MDRD) Non-Af Amer 76 mL/min >60 [facility] Work Phone: [phone] Comment on above: Non- GFR Calc Platelets bldon 01-28-2022 Platelets (Bld) [#/Vol] 250 10*3/uL 150-450 [facility] Work Phone: [phone] Protein Test strip Ql (U)on 01-28-2022 Protein Ql (U) 100 mg/dl Negative [facility] Work Phone: [phone] Serum or plasma calcium luis urement (mass/volume)on 01-28-2022 Calcium [Mass/Vol] 10.3 mg/dL 8.5-10.1 [facility] Work Phone: [phone] Serum or plasma creatinine m easurement (mass/volume)on 01-28-2022 Creatinine [Mass/Vol] 1.02 mg/dL 0.70-1.30 [facility] Work Phone: Comment on above: The validity of the calculated GFR & GFRAA in patients over 70 years has not been determined. Clinical correlation is essential. Serum or plasma urea nitroge n measurement (mass/volume)on 01-28-2022 Urea nitrogen [Mass/Vol] 12 mg/dL 7-18 [facility] Work Phone: Squamous epithelial cells de tection in urine sediment by light microscopyon 01-28-2022 Epithelial cells.squamous LM Ql (Urine sed) 0 SEEN /hpf 0-5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 IgG Ab <2 U/mL 0-5 [facility] Work Phone: Comment on above: Negative 0 - 5 Weak Positive 6 - 9 Positive >9 Platelets bldon 11-30-2021 Platelets (Bld) [#/Vol] 305 10*3/uL 150-450 [facility] Work Phone: Serum IgA measurement (units /volume)on 11-30-2021 IgA Qn (S) 128 mg/dL 61-437 [facility] Work Phone: Comment on above: Performed at: [place] [id number] Director: Дмитрий Tran PhD, Phone: [phone] Serum or plasma calcium luis urement (mass/volume)on 11-30-2021 Calcium [Mass/Vol] 8.9 mg/dL 8.5-10.1 [facility] Work Phone: Serum or plasma creatinine m easurement (mass/volume)on 11-30-2021 Creatinine [Mass/Vol] 0.91 mg/dL 0.70-1.30 [facility] Work Phone: Comment on above: The validity of the calculated GFR & GFRAA in patients over 70 years has not been determined. Clinical correlation is essential. Serum or plasma urea nitroge n measurement (mass/volume)on 11-30-2021 Urea nitrogen [Mass/Vol] 11 mg/dL 7-18 [facility] Work Phone: Serum tissue transglutaminas e IgA antibody assay (units/volume)on 11-30-2021 tTG IgA Qn (S) <2 U/mL 0-3 [facility] Work Phone: Comment on above: Negative 0 - 3 Weak Positive 4 - 10 Positive >10 Tissue Transglutaminase (tTG) has been identified as the endomysial antigen. Studies have demonstr- ated that endomysial IgA antibodies have over 99% specificity for gluten sensitive enteropathy. Thin prep Papanicolaou smear with manual screeningon 11-30-2021 Thin prep Papanicolaou smear with manual screening 7 5-15 [facility] Work Phone: Blood platelet adequacy dete ction by light microscopyon 11-29-2021 Platelets LM Ql (Bld) ADEQUATE ADEQ [facility] Work Phone: Hypochromatic red blood cell detectionon 11-29-2021 Hypochromia Ql (Bld) 1+ [facility] Work Phone: Serum or plasma ferritin arlyn surement (mass/volume)on 11-29-2021 Ferritin [Mass/Vol] 157 ng/mL 26-388 [facility] Work Phone: Blood manual differential co mment interpretation (narrative result)on 11-28-2021 Manual differential comment Ghassan (Bld) [Interp] SCANNED [facility] Work Phone: Laboratory - Chemistry and C hemistry - challengeon 11-28-2021 Magnesium [Mass/Vol] 2.0 mg/dL 1.6-2.6 [facility] Work Phone: Macrocytes detectionon 11-28 Macrocytes Ql (Bld) RARE [facility] Work Phone: Ovalocyte detectionon 2021 Ovalocytes LM Ql (Bld) 1+ [facility] Work Phone: Thin prep Papanicolaou smear with manual screeningon 11-28-2021 Thin prep Papanicolaou smear with manual screening 1+ [facility] Work Phone: Laboratory - Chemistry and C hemistry - challengeon 11-26-2021 Cobalamin (Vitamin B12) [Mass/Vol] 403 pg/mL 211-911 [facility] Work Phone: No Panel Informationon 11-26 Troponin I High Sensitivity 13 pg/mL 3.0-78.0 [facility] Work Phone: Comment on above: Please Note: [place] t Units and Gender Specific Reference Ranges. For more information see Policy Stat Procedure [place] High Sensitivity Troponin (TNIH) and attachments. Absolute lymphocyte counton 11-25-2021 Lymphocytes Auto (Unsp spec) [#/Vol] 0.81 10*3/uL 0.83-4.51 [facility] Work Phone: [phone] Basophil percentageon 2021 Basophil percentage 0 SEEN /hpf 0-5 [facility] Work Phone: Basophils/100 WBC (Bld) 0.7 % 0-1 [facility] Work Phone: Eosinophils/100 WBC (Bld) 0.1 % 0-5 [facility] Work Phone: Neutrophils (Bld) [#/Vol] 5.8 10*3/uL 2.0-7.7 [facility] Work Phone: Neutrophils/100 WBC (Bld) 80.9 % 47-70 [facility] Work Phone: WBC (Bld) [#/Vol] 7.1 10*3/uL 4.4-11.0 [facility] Work Phone: Bilirubin [Mass/Vol] 0.20 mg/dL 0.20-1.00 [facility] Work Phone: Comment on above: For patients on eltr ombopag therapy, use of Dimension [place] TBIL is not recommended. Chloride [Moles/Vol] 101 mmol/L 98-107 [facility] Work Phone: Glucose [Mass/Vol] 113 mg/dL 74-106 [facility] Work Phone: Comment on above: Fasting Glucose resu lt from 100 to 125 mg/dL suggests IMPAIRED HOMEOSTASIS per A.D.A. criteria. Potassium [Moles/Vol] 4.2 mmol/L 3.5-5.1 [facility] Work Phone: Protein [Mass/Vol] 6.8 g/dL 6.4-8.2 [facility] Work Phone: [phone] Sodium [Moles/Vol] 133 mmol/L 136-145 [facility] Work Phone: [phone] Bilirubin Test strip Ql (U)o n 11-25-2021 Bilirubin Ql (U) Negative Negative [facility] Work Phone: [phone] Blood erythrocytes count (nu mber/volume)on 11-25-2021 RBC (Bld) [#/Vol] 2.36 10*6/uL 4.6-6.2 [facility] Work Phone: [phone] Blood hemoglobin measurement (mass/volume)on 11-25-2021 Hemoglobin (Bld) [Mass/Vol] 4.4 g/dL 13.0-16.5 [facility] Work Phone: Comment on above: CRITICAL VALUE VERIF IED. CALLED TO [id number] Kateryna Horn.RESULTS READ BACK BY SAME . Blood lymphocytes/100 leukoc yteson 11-25-2021 Lymphocytes/100 WBC (Bld) 11.4 % 19-41 [facility] Work Phone: [phone] Blood manual differential co mment interpretation (narrative result)on 11-25-2021 Manual differential comment Ghassan (Bld) [Interp] SCANNED [facility] Work Phone: Comment on above: ANEMIA NOTED Blood monocytes/100 leukocyt eson 11-25-2021 Monocytes/100 WBC (Bld) 6.3 % 0-10 [facility] Work Phone: [phone] Blood platelet mean volumeon 11-25-2021 Platelet mean volume (Bld) [Entitic vol] 10.2 fL 6.2-12.0 [facility] Work Phone: [phone] Determination of erythrocyte mean corpuscular volume (MCV)on 11-25-2021 MCV (RBC) [Entitic vol] 71.6 fL 80-94 [facility] Work Phone: [phone] Hematocrit Auto (Bld) [Volum e fraction]on 11-25-2021 Hematocrit (Bld) [Volume fraction] 16.9 % 40-54 [facility] Work Phone: [phone] Hemoglobin in reticulocytes (mass per reticulocyte)on 11-25-2021 Hemoglobin (Reticulocytes) [Entitic mass] 15.0 pg 30-35 [facility] Work Phone: [phone] Hypochromatic red blood cell detectionon 11-25-2021 Hypochromia Ql (Bld) 1+ [facility] Work Phone: [phone] INR in Blood by Coagulation assayon 11-25-2021 INR Coag (Bld) [Relative time] 5.4 {INR} [facility] Work Phone: [phone] Comment on above: CRITICAL VALUE VERIF IED. CALLED TO [id number] Kateryna Horn.RESULTS READ BACK BY SAME . Iron measurement (mass/mass) on 11-25-2021 Iron (Unsp spec) [Mass/Mass] 10 ug/dL 65-175 [facility] Work Phone: [phone] Ketones Test strip Ql (U)on 11-25-2021 Ketones Ql (U) Negative Negative [facility] Work Phone: Laboratory - Chemistry and C hemistry - challengeon 11-25-2021 ALP [Catalytic activity/Vol] 54 U/L 45-117 [facility] Work Phone: [phone] [Catalytic activity/Vol] 20 U/L 16-61 [facility] Work Phone: [phone] CO2 [Moles/Vol] 23.0 mmol/L 21.0-32.0 [facility] Work Phone: [phone] Globulin (S) [Mass/Vol] 3.1 g/dL 2.2-4.2 [facility] Work Phone: [phone] Urea nitrogen/Creatinine [Mass ratio] 16.7 mg/mg 10-20 [facility] Work Phone: [phone] Laboratory - Coagulationon 0 11-25-2021 PT Coag (PPP) [Time] 49.2 s 11.7-14.9 [facility] Work Phone: Laboratory - Hematology and Cell countson 11-25-2021 Erythrocyte distribution width (RBC) [Entitic vol] 48.7 fL 35.1-43.9 [facility] Work Phone: [phone] Erythrocyte distribution width (RBC) [Ratio] 18.6 % 11.6-14.6 [facility] Work Phone: [phone] Immature granulocytes/100 WBC (Bld) 0.600 % 0.0-0.9 [facility] Work Phone: [phone] Comment on above: IG% - Immature Granu locytes (promyelocytes, myelocytes and metamyelocytes) > 1% indicates that a LEFT SHIFT is Present. MCH (RBC) [Entitic mass] 18.6 pg 27.0-32.0 [facility] Work Phone: [phone] Nucleated RBC/100 WBC (Bld) [Ratio] 0.6 % 0-5 [facility] Work Phone: [phone] Lower GI hemoglobin IA Ql (S tl)on 11-25-2021 Stool Occult Blood (LACI) Positive [facility] Work Phone: [phone] MCHC Auto (RBC) [Mass/Vol]on 11-25-2021 MCHC (RBC) [Mass/Vol] 26.0 g/dL 32-36 [facility] Work Phone: [phone] Mucus LM Ql (Urine sed)on Mucus Ql (Urine sed) 0 SEEN /hpf [facility] Work Phone: [phone] Nitrite Test strip Ql (U)on 11-25-2021 Nitrite Ql (U) Negative Negative [facility] Work Phone: [phone] Panel Informationon 11-25 Immature Reticulocyte Fraction 25.00 % 3.00-15.90 [facility] Work Phone: [phone] Reticulocyte Count 2.10 % 0.5-1.5 [facility] Work Phone: Estimated Creatinine Clearance Calc 44.86 ml/min [facility] Work Phone: Estimated GFR (MDRD) Amer 62 mL/min >60 [facility] Work Phone: [phone] Comment on above: GFR Calc Estimated GFR (MDRD) Non-Af Amer 51 mL/min >60 [facility] Work Phone: [phone] Comment on above: Non- GFR Calc Total Iron Binding Capacity 466 ug/dL 250-450 [facility] Work Phone: Platelets bldon 11-25-2021 Platelets (Bld) [#/Vol] 398 10*3/uL 150-450 [facility] Work Phone: Protein Test strip Ql (U)on 11-25-2021 Protein Ql (U) Negative Negative [facility] Work Phone: Review by pathologiston Pathologist review Ghassan (Unsp spec) [Interp] Lena gardner [facility] Work Phone: [phone] Pathologist review Ghassan (Unsp spec) [Interp] Reviewed [facility] Work Phone: [phone] Comment on above: Previous reported re sult: Lena gardner Edited by: JF on 11/26/21:1239Severe Microcytic anemia.Clinical correlation necessary.Sebastian Gonzalez M.D. 11/26/21 AMENDED REPORT 11/26/21 1239 PATH REV previously reported as: Lena gardner Serum or plasma albumin luis urement (mass/volume)on 11-25-2021 Albumin [Mass/Vol] 3.7 g/dL 3.2-5.0 [facility] Work Phone: [phone] Serum or plasma albumin/glob ulin mass ratioon 11-25-2021 Albumin/Globulin [Mass ratio] 1.2 {ratio} 0.9-2.4 [facility] Work Phone: [phone] Serum or plasma calcium luis urement (mass/volume)on 11-25-2021 Calcium [Mass/Vol] 8.2 mg/dL 8.5-10.1 [facility] Work Phone: Serum or plasma creatinine m easurement (mass/volume)on 11-25-2021 Creatinine [Mass/Vol] 1.44 mg/dL 0.70-1.30 [facility] Work Phone: Comment on above: The validity of the calculated GFR & GFRAA in patients over 70 years has not been determined. Clinical correlation is essential. Serum or plasma ferritin arlyn surement (mass/volume)on 11-25-2021 Ferritin [Mass/Vol] 5 ng/mL 26-388 [facility] Work Phone: Serum or plasma folate measu rement (mass/volume)on 11-25-2021 Folate [Mass/Vol] 12.90 ng/mL 3.1-55.4 [facility] Work Phone: Serum or plasma iron saturat ion measurement (mass fraction)on 11-25-2021 Iron saturation [Mass fraction] 2.1 % 15.0-55.0 [facility] Work Phone: Serum or plasma urea nitroge n measurement (mass/volume)on 11-25-2021 Urea nitrogen [Mass/Vol] 24 mg/dL 7-18 [facility] Work Phone: [phone] Squamous epithelial cells de tection in urine sediment by light microscopyon 11-25-2021 Epithelial cells.squamous LM Ql (Urine sed) 0 SEEN /hpf 0-5 [facility] Work Phone: Thin prep Papanicolaou smear with manual screeningon 11-25-2021 Thin prep Papanicolaou smear with manual screening 10 U/L 15-37 [facility] Work Phone: [phone] Thin prep Papanicolaou smear with manual screening 9 5-15 [facility] Work Phone: [phone] Urine blood detectionon RBC Ql (U) 50 /ul Negative [facility] Work Phone: [phone] RBC Ql (U) 5-10 SEEN /hpf 0-5 [facility] Work Phone: [phone] Urine clarityon 11-25-2021 Clarity (U) Clear Clear [facility] Work Phone: Urine color determinationon 11-25-2021 Color (U) Straw Yellow [facility] Work Phone: Urine glucose detectionon Glucose Ql (U) Normal mg/dl Normal [facility] Work Phone: Urine leukocyte esterase det ection by dipstickon 11-25-2021 Leukocyte esterase Test strip Ql (U) Negative Negative [facility] Work Phone: Urine pHon 11-25-2021 pH (U) 7.0 [pH] 5.0 - 8.0 [facility] Work Phone: Urine sediment bacteria coun t by microscopy (number/high power field)on 11-25-2021 Bacteria LM.HPF (Urine sed) [#/Area] RARE /hpf None Seen [facility] Work Phone: Urine specific gravity measu rementon 11-25-2021 Specific gravity (U) [Rel density] 1.010 1.002-1.030 [facility] Work Phone: Urobilinogen Auto test strip Ql (U)on 11-25-2021 Urobilinogen Ql (U) Normal mg/dl Normal [facility] Work Phone: INR in Blood by Coagulation assayon 11-11-2021 INR Coag (Bld) [Relative time] 1.2 {INR} [facility] Laboratory - Coagulationon 0 11-11-2021 PT Coag (PPP) [Time] 15.1 s 11.7-14.9 [facility] Work Phone: No Panel Informationon 11-08 DLCO (ml/min/mmHg) 7.15 ml/min/mmHg [facility] DLCO/VA (ml/min/mmHg/L) 1.63 ml/min/mmHg/L [facility] [id number]% PRE (L/S) 0.30 L/S [facility] FEV1 PRE (L) 0.85 L [facility] FEV1/FVC PRE (%) 0.38 % [facility] FVC PRE (L) 2.23 L [facility] PEF PRE (L/S) 1.51 L/S [facility] VA (L) 4.38 L [facility] CNCOon 10-18-2021 CNCO Letter Text Letter Text Normal [facility] INR FINGERSTICK B/Oon 2021 INR Coag (Bld) [Relative time] 2.2 EXT [facility] Quality Check No [facility] Absolute lymphocyte counton 10-08-2021 Lymphocytes Auto (Unsp spec) [#/Vol] 1.26 10*3/uL 0.83-4.51 [facility] Work Phone: Basophil percentageon 2021 Basophil percentage 10-25 SEEN /hpf 0-5 [facility] Work Phone: Basophils/100 WBC (Bld) 1.3 % 0-1 [facility] Work Phone: Bilirubin [Mass/Vol] 0.30 mg/dL 0.20-1.00 [facility] Work Phone: Comment on above: For patients on eltr ombopag therapy, use of Dimension [place] TBIL is not recommended. Chloride [Moles/Vol] 105 mmol/L 98-107 [facility] Work Phone: Eosinophils/100 WBC (Bld) 0.5 % 0-5 [facility] Work Phone: Glucose [Mass/Vol] 99 mg/dL 74-106 [facility] Work Phone: Neutrophils (Bld) [#/Vol] 4.3 10*3/uL 2.0-7.7 [facility] Work Phone: Neutrophils/100 WBC (Bld) 70.4 % 47-70 [facility] Work Phone: Potassium [Moles/Vol] 3.7 mmol/L 3.5-5.1 [facility] Work Phone: Protein [Mass/Vol] 7.5 g/dL 6.4-8.2 [facility] Work Phone: Sodium [Moles/Vol] 138 mmol/L 136-145 [facility] Work Phone: WBC (Bld) [#/Vol] 6.1 10*3/uL 4.4-11.0 [facility] Work Phone: Bilirubin Test strip Ql (U)o n 10-08-2021 Bilirubin Ql (U) Negative Negative [facility] Work Phone: Blood erythrocytes count (nu mber/volume)on 10-08-2021 RBC (Bld) [#/Vol] 3.87 10*6/uL 4.6-6.2 [facility] Work Phone: Blood hemoglobin measurement (mass/volume)on 10-08-2021 Hemoglobin (Bld) [Mass/Vol] 8.3 g/dL 13.0-16.5 [facility] Work Phone: Blood lymphocytes/100 leukoc yteson 10-08-2021 Lymphocytes/100 WBC (Bld) 20.5 % 19-41 [facility] Work Phone: [phone] Blood monocytes/100 leukocyt eson 10-08-2021 Monocytes/100 WBC (Bld) 7.0 % 0-10 [facility] Work Phone: Blood platelet mean volumeon 10-08-2021 Platelet mean volume (Bld) [Entitic vol] 10.1 fL 6.2-12.0 [facility] Work Phone: Determination of erythrocyte mean corpuscular volume (MCV)on 10-08-2021 MCV (RBC) [Entitic vol] 74.7 fL 80-94 [facility] Work Phone: Hematocrit Auto (Bld) [Volum e fraction]on 10-08-2021 Hematocrit (Bld) [Volume fraction] 28.9 % 40-54 [facility] Work Phone: [phone] INR in Blood by Coagulation assayon 10-08-2021 INR Coag (Bld) [Relative time] 2.4 {INR} [facility] Work Phone: Ketones Test strip Ql (U)on 10-08-2021 Ketones Ql (U) Negative Negative [facility] Work Phone: [phone] Laboratory - Chemistry and C hemistry - challengeon 10-08-2021 ALP [Catalytic activity/Vol] 74 U/L 45-117 [facility] Work Phone: [phone] ALT [Catalytic activity/Vol] 21 U/L 16-61 [facility] Work Phone: [phone] CO2 [Moles/Vol] 30.0 mmol/L 21.0-32.0 [facility] Work Phone: [phone] Globulin (S) [Mass/Vol] 3.7 g/dL 2.2-4.2 [facility] Work Phone: [phone] Lipase [Catalytic activity/Vol] 93 U/L 73-393 [facility] Work Phone: [phone] Urea nitrogen/Creatinine [Mass ratio] 20.2 mg/mg 10-20 [facility] Work Phone: Laboratory - Coagulationon 0 10-08-2021 PT Coag (PPP) [Time] 25.7 s 11.7-14.9 [facility] Work Phone: Laboratory - Hematology and Cell countson 10-08-2021 Erythrocyte distribution width (RBC) [Entitic vol] 50.4 fL 35.1-43.9 [facility] Work Phone: [phone] Erythrocyte distribution width (RBC) [Ratio] 18.6 % 11.6-14.6 [facility] Work Phone: [phone] Immature granulocytes/100 WBC (Bld) 0.300 % 0.0-0.9 [facility] Work Phone: [phone] Comment on above: IG% - Immature Granu locytes (promyelocytes, myelocytes and metamyelocytes) > 1% indicates that a LEFT SHIFT is Present. MCH (RBC) [Entitic mass] 21.4 pg 27.0-32.0 [facility] Work Phone: Nucleated RBC/100 WBC (Bld) [Ratio] 0 % 0-5 [facility] Work Phone: MCHC Auto (RBC) [Mass/Vol]on 10-08-2021 MCHC (RBC) [Mass/Vol] 28.7 g/dL 32-36 [facility] Work Phone: Mucus LM Ql (Urine sed)on Mucus Ql (Urine sed) 0 SEEN /hpf [facility] Work Phone: Nitrite Test strip Ql (U)on 10-08-2021 Nitrite Ql (U) Positive Negative [facility] Work Phone: No Panel Informationon 10-08 Estimated Creatinine Clearance Calc 68.72 ml/min [facility] Work Phone: Estimated GFR (MDRD) Amer 101 mL/min >60 [facility] Work Phone: Comment on above: GFR Calc Estimated GFR (MDRD) Non-Af Amer 84 mL/min >60 [facility] Work Phone: Comment on above: Non- GFR Calc Platelets bldon 10-08-2021 Platelets (Bld) [#/Vol] 349 10*3/uL 150-450 [facility] Work Phone: Protein Test strip Ql (U)on 10-08-2021 Protein Ql (U) 100 mg/dl Negative [facility] Work Phone: [phone] Serum or plasma albumin luis urement (mass/volume)on 10-08-2021 Albumin [Mass/Vol] 3.8 g/dL 3.2-5.0 [facility] Work Phone: [phone] Serum or plasma albumin/glob ulin mass ratioon 10-08-2021 Albumin/Globulin [Mass ratio] 1.0 {ratio} 0.9-2.4 [facility] Work Phone: [phone] Serum or plasma calcium luis urement (mass/volume)on 10-08-2021 Calcium [Mass/Vol] 9.1 mg/dL 8.5-10.1 [facility] Work Phone: Serum or plasma creatinine m easurement (mass/volume)on 10-08-2021 Creatinine [Mass/Vol] 0.94 mg/dL 0.70-1.30 [facility] Work Phone: Comment on above: The validity of the calculated GFR & GFRAA in patients over 70 years has not been determined. Clinical correlation is essential. Serum or plasma urea nitroge n measurement (mass/volume)on 10-08-2021 Urea nitrogen [Mass/Vol] 19 mg/dL 7-18 [facility] Work Phone: Squamous epithelial cells de tection in urine sediment by light microscopyon 10-08-2021 Epithelial cells.squamous LM Ql (Urine sed) 0-5 SEEN /hpf 0-5 [facility] Work Phone: Thin prep Papanicolaou smear with manual screeningon 10-08-2021 Thin prep Papanicolaou smear with manual screening 12 U/L 15-37 [facility] Work Phone: Thin prep Papanicolaou smear with manual screening 3 5-15 [facility] Work Phone: Urine blood detectionon 09-18 RBC Ql (U) 10 /ul Negative [facility] Work Phone: RBC Ql (U) 0 SEEN /hpf 0-5 [facility] Work Phone: [phone] Urine clarityon 10-08-2021 Clarity (U) Sl. Cloudy Clear [facility] Work Phone: Urine color determinationon 10-08-2021 Color (U) Yellow Yellow [facility] Work Phone: Urine glucose detectionon Glucose Ql (U) Normal mg/dl Normal [facility] Work Phone: [phone] Urine leukocyte esterase det ection by dipstickon 10-08-2021 Leukocyte esterase Test strip Ql (U) 500 /ul Negative [facility] Work Phone: [phone] Urine pHon 10-08-2021 pH (U) 6.5 [pH] 5.0 - 8.0 [facility] Work Phone: Urine sediment bacteria coun t by microscopy (number/high power field)on 10-08-2021 Bacteria LM.HPF (Urine sed) [#/Area] 3 /[HPF] None Seen [facility] Work Phone: Urine specific gravity measu rementon 10-08-2021 Specific gravity (U) [Rel density] 1.010 1.002-1.030 [facility] Work Phone: Urobilinogen Auto test strip Ql (U)on 10-08-2021 Urobilinogen Ql (U) Normal mg/dl Normal [facility] Work Phone: Absolute lymphocyte counton 09-22-2021 Lymphocytes Auto (Unsp spec) [#/Vol] 1.51 10*3/uL 0.83-4.51 [facility] Work Phone: Basophil percentageon 2021 Basophils/100 WBC (Bld) 2.1 % 0-1 [facility] Work Phone: Eosinophils/100 WBC (Bld) 5.1 % 0-5 [facility] Work Phone: Neutrophils (Bld) [#/Vol] 3.7 10*3/uL 2.0-7.7 [facility] Work Phone: Neutrophils/100 WBC (Bld) 60.6 % 47-70 [facility] Work Phone: WBC (Bld) [#/Vol] 6.1 10*3/uL 4.4-11.0 [facility] Work Phone: Blood erythrocytes count (nu mber/volume)on 09-22-2021 RBC (Bld) [#/Vol] 4.09 10*6/uL 4.6-6.2 [facility] Work Phone: Blood hemoglobin measurement (mass/volume)on 09-22-2021 Hemoglobin (Bld) [Mass/Vol] 9.1 g/dL 13.0-16.5 [facility] [facility]: Blood lymphocytes/100 leukoc yteson 09-22-2021 Lymphocytes/100 WBC (Bld) 24.8 % 19-41 [facility] Work Phone: Blood monocytes/100 leukocyt eson 09-22-2021 Monocytes/100 WBC (Bld) 6.9 % 0-10 [facility] Work Phone: [phone] Blood platelet mean volumeon 09-22-2021 Platelet mean volume (Bld) [Entitic vol] 9.9 fL 6.2-12.0 [facility] Work Phone: Determination of erythrocyte mean corpuscular volume (MCV)on 09-22-2021 MCV (RBC) [Entitic vol] 77.5 fL 80-94 [facility] Work Phone: [phone] Hematocrit Auto (Bld) [Volum e fraction]on 09-22-2021 Hematocrit (Bld) [Volume fraction] 31.7 % 40-54 [facility] Work Phone: Laboratory - Hematology and Cell countson 09-22-2021 Erythrocyte distribution width (RBC) [Entitic vol] 56.2 fL 35.1-43.9 [facility] Work Phone: [phone] Erythrocyte distribution width (RBC) [Ratio] 19.9 % 11.6-14.6 [facility] Work Phone: [phone] Immature granulocytes/100 WBC (Bld) 0.500 % 0.0-0.9 [facility] Work Phone: [phone] Comment on above: IG% - Immature Granu locytes (promyelocytes, myelocytes and metamyelocytes) > 1% indicates that a LEFT SHIFT is Present. MCH (RBC) [Entitic mass] 22.2 pg 27.0-32.0 [facility] Work Phone: Nucleated RBC/100 WBC (Bld) [Ratio] 0 % 0-5 [facility] Work Phone: [phone] MCHC Auto (RBC) [Mass/Vol]on 09-22-2021 MCHC (RBC) [Mass/Vol] 28.7 g/dL 32-36 [facility] Work Phone: Platelets bldon 09-22-2021 Platelets (Bld) [#/Vol] 351 10*3/uL 150-450 [facility] Work Phone: CNPNon 09-21-2021 CNPN Telephone ([id number]) PEDRO PABLO SIERRA ([id number]) 1950 M CHT Date Time Provider Department [...] Date Reviewed: 09/15/2021 Reviewed by: Anjel Braga APRN.QUALITY ENGINEER - Fully Assessed Reason for Visit: Appointment [...] [J43.9] - COMPOUNDED PRESCRIPTION Aerosol supplies Dx:J44.1 NPI#[id number] - COMPOUNDED PRESCRIPTION NEBULIZER FOR HOME USE. [...] left fem (more content not included)... Normal [facility] Absolute lymphocyte counton 09-17-2021 Lymphocytes Auto (Unsp spec) [#/Vol] 1.19 10*3/uL 0.83-4.51 [facility] Work Phone: Basophil percentageon 2021 Basophil percentage 0-5 SEEN /hpf 0-5 [facility] Work Phone: Basophils/100 WBC (Bld) 1.6 % 0-1 [facility] Work Phone: Bilirubin [Mass/Vol] 0.30 mg/dL 0.20-1.00 [facility] Work Phone: Comment on above: For patients on eltr ombopag therapy, use of Dimension [place] TBIL is not recommended. Chloride [Moles/Vol] 104 mmol/L 98-107 [facility] Work Phone: Eosinophils/100 WBC (Bld) 1.1 % 0-5 [facility] Work Phone: Glucose [Mass/Vol] 100 mg/dL 74-106 [facility] Work Phone: Comment on above: Fasting Glucose resu lt from 100 to 125 mg/dL suggests IMPAIRED HOMEOSTASIS per A.D.A. criteria. Neutrophils (Bld) [#/Vol] 5.2 10*3/uL 2.0-7.7 [facility] Work Phone: Neutrophils/100 WBC (Bld) 73.0 % 47-70 [facility] Work Phone: Potassium [Moles/Vol] 4.2 mmol/L 3.5-5.1 [facility] Work Phone: Protein [Mass/Vol] 7.3 g/dL 6.4-8.2 [facility] Work Phone: Sodium [Moles/Vol] 136 mmol/L 136-145 [facility] Work Phone: WBC (Bld) [#/Vol] 7.1 10*3/uL 4.4-11.0 [facility] Work Phone: Bilirubin Test strip Ql (U)o n 09-17-2021 Bilirubin Ql (U) Negative Negative [facility] Work Phone: Blood erythrocytes count (nu mber/volume)on 09-17-2021 RBC (Bld) [#/Vol] 3.50 10*6/uL 4.6-6.2 [facility] Work Phone: Blood hemoglobin measurement (mass/volume)on 09-17-2021 Hemoglobin (Bld) [Mass/Vol] 7.9 g/dL 13.0-16.5 [facility] Work Phone: Blood lymphocytes/100 leukoc yteson 09-17-2021 Lymphocytes/100 WBC (Bld) 16.9 % 19-41 [facility] Work Phone: Blood monocytes/100 leukocyt eson 09-17-2021 Monocytes/100 WBC (Bld) 7.1 % 0-10 [facility] Work Phone: Blood platelet mean volumeon 09-17-2021 Platelet mean volume (Bld) [Entitic vol] 9.5 fL 6.2-12.0 [facility] Work Phone: Determination of erythrocyte mean corpuscular volume (MCV)on 09-17-2021 MCV (RBC) [Entitic vol] 75.1 fL 80-94 [facility] Work Phone: Hematocrit Auto (Bld) [Volum e fraction]on 09-17-2021 Hematocrit (Bld) [Volume fraction] 26.3 % 40-54 [facility] Work Phone: INR in Blood by Coagulation assayon 09-17-2021 INR Coag (Bld) [Relative time] 1.3 {INR} [facility] Work Phone: Ketones Test strip Ql (U)on 09-17-2021 Ketones Ql (U) Negative Negative [facility] Work Phone: Laboratory - Chemistry and C hemistry - challengeon 09-17-2021 ALP [Catalytic activity/Vol] 79 U/L 45-117 [facility] Work Phone: ALT [Catalytic activity/Vol] 36 U/L 16-61 [facility] Work Phone: [phone] CO2 [Moles/Vol] 25.0 mmol/L 21.0-32.0 [facility] Work Phone: [phone] Globulin (S) [Mass/Vol] 3.5 g/dL 2.2-4.2 [facility] Work Phone: [phone] Lipase [Catalytic activity/Vol] 102 U/L 73-393 [facility] Work Phone: [phone] Urea nitrogen/Creatinine [Mass ratio] 12.5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 crushed and thrombosed (10/10/19) Plan: - NPO - US Arterial Duplex of L Groin SIGNATURE: Parker Garcia MD PATIENT NAME: Pedro Pablo Sierra DATE: October 17, 2019 TIME: 2:16 AM PAGER/CONTACT #: [phone]#[phone] Previous Version Ayad Tompkins MD, 10/17/2019 10:51 AM Signed As a result of the 09/03/19 order by [facility] Director Libby Harris M.D. to cancel [...] with: Patient Length of visit (minutes): 10 Congregational / Spirituality: Yazidi Reason: Referral; pre-surgery ASSESSMENT Emotional Disposition: Angry, Helpless and Lonely INTERVENTIONS Empowerment: Normalized experience of patient/family Exploration: Explored emotional needs and resources and Explored spiritual needs and resources OUTCOMES Patient debriefed/defused their experience PLAN Will follow up as requested SIGNATURE: Chaplain Riley PATIENT NAME: Pedro Pablo Sierra DATE: October 17, 2019 TIME: 12:23 PM PAGER/CONTACT #: [phone] Mary Carmen Meredith RN, RN 10/17/2019 2:57 PM Addendum CARE MANAGEMENT: ASSESSMENT AND DISCHARGE PLAN SERVICE DATE: October 17, 2019 SERVICE TIME: 12:52 PM PRIMARY CARE PHYSICIAN: DAIJA MORTON MD ADMISSION STATUS: Observation Needs Prior to Discharge: To Be Determined MEDICAL: [facility] 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 Last discharge within 30 days: Yes Is this a planned readmission?: No Unplanned Reason: Other: See Comment(non healing wound) Followed Up with Appointment Prior to Admission: Appointment completed Advance Directive: Current Advance Directive: Health Care Power of Aerophysicist In Chart: Yes Up To Date and [...] Home Care?: Home Health Care Agency;Meals on Wheels([facility] [phone] SN/OT/PT) Equipment Prior to Admission: [place] SOCIAL: Living Arrangements: Home Lives With: Alone Financial Resources: RetiredPrimary Contact: Extended Emergency Contact Information Primary Emergency Contact: BasilioMichelle Mobile Relation: Daughter Secondary Emergency Contact: Joseph Burrell Mobile Relation: Relative Supportive Patient Contact:: Yes Contact Resources: Other;Significant Other Other Contact Name/Phone: Liseth reaves/ Ann [place] ([facility] on aging) [phone] Social Needs Food insecurity Worry: Sometimes true [...] Completely I feel financially burdened by my dpv-im-pfolng expenses for my prescription medication:: 0 - [...] depends on his daughter and ex (Joseph [phone]) for transportation. He receives waiver services w/ [facility] for SN/OT. He receives Meals on Wheels 9 meals/wk plus some groceries. Patient to have exploration of Inguinal site today 10/16. Additional care needs TBD. [facility] remains available for plan of care and transitional care needs as they arise. 1445: Liseth w/ [facility] ([place] agency on aging) [phone] call for to update on svcs received. [facility] patient receives waiver services through [facility] for HHC (SN/PT/OT), meals, and emergency health line. Would like to be updated on discharge plans once known. SIGNATURE: Mary Carmen Meredith RN PATIENT NAME: Pedro Pablo Sierra DATE: October 17, 2019 TIME: 12:52 PM PAGER/CONTACT #: [phone] Previous Version Emilie Mcclelland RN, RN 10/17/2019 7:03 PM Addendum Nursing Progress Note Patient Name: Pedro Pablo Sierra Patient Location: [id number][facility]-01 __ Daily Note: Alert and [...] PATIENT NAME: Pedro Pablo Sierra PATIENT LOCATION: [id number]/[facility] 53* READINESS TO LEARN COGNITIVE ABILITY: [...] Patient Name: Pedro Pablo Sierra Patient Location: [id number]-1164/[address] 534- __ Daily Note: Patient has [...] have any questions, please contact Lit at [phone]. Age: [age] year old Allergies: ALLERGIES No [...] completed by: Emilie Mcclelland RN Progress Notes ([facility]): Emilie Haque RN 10/16/2019 2:25 PM [...] with any changes. Emilie Haque RN Normal [facility] Basic Metabolic Panlon 10-13 Anion gap [Moles/Vol] 12 mmol/L Normal 9-18 [facility] Comment on above: Performed By: #### C LARRY, BMP, PT ####[place] [phone] Calcium [Mass/Vol] 8.3 mg/dL Low 8.5-10.5 [facility] Comment on above: Performed By: #### C LARRY BMP, PT ####[place] [phone] Chloride [Moles/Vol] 100 mmol/L Normal 98-110 [facility] Comment on above: Performed By: #### C LARRY, BMP, PT ####[facility] [place], [place] [phone] CO2 [Moles/Vol] 25 mmol/L Normal 23-32 [facility] Comment on above: Performed By: #### C BC, BMP, PT ####[facility] [place], [place] [phone] Creatinine [Mass/Vol] 0.69 mg/dL Low 0.70-1.40 [facility] Comment on above: Performed By: #### KATHY HARRISON, PT ####[place] [phone] eGFR- Amer. >60 Normal >60 [facility] Comment on above: Performed By: #### KATHY HARRISON, PT ####[place] [phone] GFR/1.73 sq M predicted among non-blacks MDRD (S/P/Bld) [Vol rate/Area] mL/min/{1.73_m2} Normal >60 [facility] Comment on above: Performed By: #### KATHY HARRISON, PT ####[place] [phone] Glucose [Mass/Vol] 100 mg/dL Normal 65-100 [facility] Comment on above: Performed By: #### KATHY HARRISON, PT ####[place] [phone] Potassium [Moles/Vol] 3.9 mmol/L Normal 3.5-5.0 [facility] Comment on above: Performed By: #### KATHY HARRISON, PT ####[place] [phone] Sodium [Moles/Vol] 137 mmol/L Normal 135-146 [facility] Comment on above: Performed By: #### KATHY HARRISON, PT ####[place] [phone] Urea nitrogen [Mass/Vol] 8 mg/dL Low 10-25 [facility] Comment on above: Performed By: #### KATHY HARRISON, PT ####[place] [phone] CASE MANAGEMon 10-14-2019 CASE MANAGEM HNO ID: [id number] Author: Guadalupe Yee (Sw) Service: ? Author Type: Recreation Therapist Type: Care Mgt Progress Note Filed: 10/14/2019 10:14 AM Note Text: CARE MANAGEMENT DISCHARGE NOTE SERVICE DATE: 10/14/2019 SERVICE TIME: 9:59 AM LOS: 6 days Admission Date: 10/08/2019 DISCHARGE ARRANGEMENT (list agency and phone number) Discharge Arrangement: Home Snf Care: Nursing;OT Provider Name: [facility] CAREGIVER ASSESSMENT: Caregiver is ready, willing and able to meet the patient's needs as recommended by the inter-professional team:: Yes Does the patient have an acute stroke diagnosis, or has the patient had a stroke during this admission?: No Patient's transition needs and plan for meeting these needs: [facility] HANDOFF COMMUNICATION: Handoff to: Primary Care Physician Company Accountant Name/Phone: Daija Morton/[phone] Primary Care Physician Name/Phone: Daija Morton TRANSPORTATION ARRANGEMENTS: Transportation Arrangements: Car ADDITIONAL CONTACT RESOURCES: Discharge Information Row Name Admission (Current) from 10/08/[address] [facility] Agency [facility] Start of Care 10/16/19 Patient will be discharged home today. Patient reports his family will be here to transport him home. D/C order and AVS was sent to [facility] agency. Patient updated on his denial notice and the need to be d/c today before noon today. Addendum- Spoke with [facility] agency about drawn INR on Monday. [facility] agency reported they would provide a SOC on Monday. Updated PA to write orders to have INR drawn on Monday per [facility] request. SIGNATURE: SHANE CLEMONS PATIENT NAME: Pedro Pablo Sierra DATE: October 14, 2019 TIME: 9:58 AM PAGER/CONTACT #: [phone] Normal [facility] CBCon 10-14-2019 Erythrocyte distribution width (RBC) [Ratio] 15.9 % High 11.5-15.0 [facility] Comment on above: Performed By: #### C KATHY JUAREZ, PT ####[facility] [place], [place] [phone] Hematocrit (Bld) [Volume fraction] 28.2 % Low 39.0-51.0 [facility] Comment on above: Performed By: #### C KATHY JUAREZ, PT ####[address] [phone] Hemoglobin (Bld) [Mass/Vol] 9.0 g/dL Low 13.0-17.0 [facility] Comment on above: Performed By: #### C BC, BMP, PT ####[address] [phone] MCH (RBC) [Entitic mass] 29.8 pG Normal 26.0-34.0 [facility] Comment on above: Performed By: #### C BC, BMP, PT ####[place] [phone] MCHC (RBC) [Mass/Vol] 31.9 g/dL Normal 30.5-36.0 [facility] Comment on above: Performed By: #### C BC, BMP, PT ####[address] [phone] MCV (RBC) [Entitic vol] 93.4 fL Normal 80.0-100.0 [facility] Comment on above: Performed By: #### C BC, BMP, PT ####[place] [phone] Platelet mean volume (Bld) [Entitic vol] 9.8 fL Normal 9.0-12.7 [facility] Comment on above: Performed By: #### C BC, BMP, PT ####[place] [phone] Platelets (Bld) [#/Vol] 225 10*3/uL Normal 150-400 [facility] Comment on above: Performed By: #### C BC, BMP, PT ####[address] [phone] RBC (Bld) [#/Vol] 3.02 10*6/uL Low 4.20-6.00 [facility] Comment on above: Performed By: #### C BC, BMP, PT ####[place] [phone] WBC (Bld) [#/Vol] 4.88 10*3/uL Normal 3.70-11.00 [facility] Comment on above: Performed By: #### C BC, BMP, PT ####[facility] [place], [place] [phone] NURSING PROGon 10-14-2019 NURSING PROG HNO ID: [id number] Author: Fran Hutchison) ОЛЕГ Solorio Service: ? Author Type: Registered Nurse Type: Nursing Progress Note Filed: 10/14/2019 6:05 PM Note Text: Nursing Progress Note Patient Name: Pedro Pablo Sierra Patient Location: -2C25/[id number] __ Daily Note: Patient was resting comfortably [...] was completed by: Fran Solorio RN Normal [facility] NUTRITIONon 10-14-2019 NUTRITION HNO ID: [id number] Author: Muna Rivas Service: Nutrition Therapy Author [...] and weekends please page the Group Pager -[phone] [facility] PLAN OF CAREon 10-14-2019 PLAN OF CARE HNO ID: [id number] Author: Sherly Quigley (Post Acute Care Registered Nurse) Service: Pharmacy Author Type: Funeral Service Licensee Type: Plan of Care Filed: 10/15/2019 11:12 AM Note Text: SUPERVISOR GARAGE BEDSIDE DELIVERY SURVEY 1. Patient to use [facility] Bedside Delivery - NO prefer own pharmacy Insurance Information as follows: 2. Insurance card on file - NO 3. Credit card for payment - NO [facility] PLAN OF CARE HNO ID: [id number] Author: Roman Richey) Era Service: Vascular Surgery [...] Morton stated that she would have her Sand Cleaning Machine Operator call him today to make a post dc followup virtual appt on 10/15 to go over INR results. - [facility] senior assistant manager coordinated with Home health and scheduled INR check on 10/15 -Pt's ex is picking pt up for discharge to home at 1200 per pt Roman Girard INFANTRY SENIOR SERGEANT/LAMIN Vascular Surgery Pager: [phone] [facility] PROGRESSon 10-14-2019 PROGRESS HNO ID: [id number] Author: Ayad Tompkins MD Service: Vascular Surgery [...] -- 10/11/19 0945 activity - mobilize patient ([place]) 10/08/19 1645 pneumatic compression stockings ([place]) VTE Prophylaxis: on AC ALLERGIES No [...] w/ rest pain and is s/p L ENERGY TECHNICIAN EA w/ bovine patch, L RADHA and EIA thrombectomy, L CI and EI stenting 10/07 c/b thrombosis s/p EIA to ENERGY TECHNICIAN bypass graft w. Ringed PTFE 10/09. Plan: INR in range, will resume home coumadin regimen; d/c lovenox Reg diet, HLIV PO pain meds Cont. plavix Dressing changes PRN to groin Dispo: D/c home with [facility] today Ayad Tompkins MD General Surgery, PGY-3 For questions Monday through Monday 6am to 6pm please page Red Team [phone] For questions during nights (6pm - 6am) and weekends, please contact the General Surgery Activities Leader pager, [phone] [facility] Protimeon 10-14-2019 PT Coag (PPP) [Time] 27.5 s High 9.7-13.0 [facility] Comment on above: Performed By: #### C KATHY JUAREZ, PT ####[place] [phone] [place], [place] [phone] PT Coag (PPP) [Time] 2.6 s High 0.9-1.3 [facility] Comment on above: Result Comment: Teri min K Antagonist (VKA) Therapeutic Range: INR 2 to 3 (Target INR of 2.5) Note: For patients treated with VKA drugs, such as warfarin, the [place] [employer] 2012 Guideline recommends [...] Chest 2012, 141:7S-47S Gio RA, et al. [facility] 2017, 70: 252-289 Performed By: #### C KATHY JUAREZ, PT ####[facility] [place], [place] [phone] THERAPY NTon 10-14-2019 THERAPY NT HNO ID: [id number] Author: Shakir Alicea (Pt) Mode Service: Physical Therapy Author Type: Physical Therapist Type: Therapy (PT/OT/Speech/Resp) Filed: 10/14/2019 10:40 AM Note Text: Physical Therapy Treatment SERVICE DATE: 10/14/2019 SERVICE TIME: 1003 to 1026 ROOM: [place] [address] Recommended Discharge Disposition: Home PT Anticipated Discharge [...] ness on feet Interventions Provided: Gait Training (07617);Therapeutic Activity (73513) Therapeutic Activity (03436) Treatment Minutes: 10 1 unit Skilled Intervention(s): [...] in position prior to mobility Gait Training (96949) Treatment Minutes: 13 1 unit Skilled Intervention(s): [...] Consult : PVD s/p L LE redo ENERGY TECHNICIAN endarterectomy, L profundoplasty, iliac stenting on 10/08/19 Relevant Past Medical History: S/p L femoral endarterectomy/aoroili ac stenting Patient Report: Pt agreeable to participate in therapy session. Pt having coughing spells intermittently during functional mobility, stating that he gets light headed when this occurs (vascular team was notified). Home Environment Patient Lives With: Self/Alone Assistance Available: hims coder Entry To Home: Stairs;Other: See Comment(stair lift) [...] DATE: October 14, 2019 TIME: 10:37 AM [facility] THERAPY NT HNO ID: [id number] Author: Caitlin (Giuseppe) William Service: Occupational Therapy Author Type: Occupational Therapist Type: Therapy (PT/OT/Speech/Resp) Filed: 10/14/2019 10:18 AM Note Text: OCCUPATIONAL THERAPY MISSED VISIT SERVICE DATE: 10/14/2019 SERVICE TIME: 920 to 920 ROOM: [place] [address] Attempted Treatment. Patient not seen due to Declined. Pt declines OT tx stating, Not until after dinner. OT explains that it is 9 in the morning with pt verbalizing understanding and continuing to decline therapy at this time. Continue OT per POC as able. SIGNATURE: Caitlin Thomas, OTR/L PATIENT NAME: Pedro Pablo Sierra DATE: October 14, 2019 TIME: 10:17 AM [facility] Basic Metabolic Panlon 10-12 Anion gap [Moles/Vol] 10 mmol/L Normal 9-18 [facility] Comment on above: Performed By: #### C KATHY JUAREZ, PT ####[place] [phone] [place] [phone] Calcium [Mass/Vol] 8.1 mg/dL Low 8.5-10.5 [facility] Comment on above: Performed By: #### C LARRY BMP, PT ####[place] [phone] Chloride [Moles/Vol] 102 mmol/L Normal 98-110 [facility] Comment on above: Performed By: #### C BC, BMP, PT ####[place] [phone] CO2 [Moles/Vol] 26 mmol/L Normal 23-32 [facility] Comment on above: Performed By: #### C BC, BMP, PT ####[place] [phone] Creatinine [Mass/Vol] 0.68 mg/dL Low 0.70-1.40 [facility] Comment on above: Performed By: #### C KATHY JUAREZ, PT ####[place] [phone] eGFR- Amer. >60 Normal >60 [facility] Comment on above: Performed By: #### C KATHY JUAREZ, PT ####[place] [phone] GFR/1.73 sq M predicted among non-blacks MDRD (S/P/Bld) [Vol rate/Area] mL/min/{1.73_m2} Normal >60 [facility] Comment on above: Performed By: #### C KATHY JUAREZ, PT ####[place] [phone] Glucose [Mass/Vol] 103 mg/dL High 65-100 [facility] Comment on above: Performed By: #### C KATHY JUAREZ, PT ####[place] [phone] Potassium [Moles/Vol] 3.5 mmol/L Normal 3.5-5.0 [facility] Comment on above: Performed By: #### C KATHY JUAREZ, PT ####[place] [phone] Sodium [Moles/Vol] 138 mmol/L Normal 135-146 [facility] Comment on above: Performed By: #### C KATHY JUAREZ, PT ####[place] [phone] Urea nitrogen [Mass/Vol] 8 mg/dL Low 10-25 [facility] Comment on above: Performed By: #### C LARRY BMP, PT ####[place] [phone] CASE MANAGEMon 10-13-2019 CASE MANAGEM HNO ID: [id number] Author: Carly (Rn) Donovan RN Service: Case [...] 13, 2019 TIME: 1:54 PM PAGER/CONTACT #: [phone] Normal [facility] CBCon 10-13-2019 Erythrocyte distribution width (RBC) [Ratio] 15.9 % High 11.5-15.0 [facility] Comment on above: Performed By: #### C KATHY JUAREZ, PT ####[place] [phone] Hematocrit (Bld) [Volume fraction] 26.2 % Low 39.0-51.0 [facility] Comment on above: Performed By: #### C KATHY JUAREZ, PT ####[place] [phone] Hemoglobin (Bld) [Mass/Vol] 8.4 g/dL Low 13.0-17.0 [facility] Comment on above: Performed By: #### C KATHY JUAREZ, PT ####[place] [phone] MCH (RBC) [Entitic mass] 29.6 pG Normal 26.0-34.0 [facility] Comment on above: Performed By: #### C KATHY JUAREZ, PT ####[phone] MCHC (RBC) [Mass/Vol] 32.1 g/dL Normal 30.5-36.0 [facility] Comment on above: Performed By: #### C BC, BMP, PT ####[place] [phone] [place] [phone] MCV (RBC) [Entitic vol] 92.3 fL Normal 80.0-100.0 [facility] Comment on above: Performed By: #### C LARRY BMP, PT ####[place] [phone] Platelet mean volume (Bld) [Entitic vol] 10.0 fL Normal 9.0-12.7 [facility] Comment on above: Performed By: #### C LARRY BMP, PT ####[place] [phone] Platelets (Bld) [#/Vol] 187 10*3/uL Normal 150-400 [facility] Comment on above: Performed By: #### C KATHY JUAREZ, PT ####[place] [phone] RBC (Bld) [#/Vol] 2.84 10*6/uL Low 4.20-6.00 [facility] Comment on above: Performed By: #### C KATHY JUAREZ, PT ####[place] [phone] WBC (Bld) [#/Vol] 4.79 10*3/uL Normal 3.70-11.00 [facility] Comment on above: Performed By: #### KATHY HARRISON, PT ####[place] [phone] NURSING PROGon 10-13-2019 NURSING PROG HNO ID: [id number] Author: Stefania France (Rn) ОЛЕГ García Service: ? Author Type: Registered Nurse Type: Nursing Progress Note Filed: 10/13/2019 10:12 AM Note Text: Nursing Progress Note Patient Name: Pedro Pablo Sierra Patient Location: [address] __ Daily Note:Patient expressed a desire [...] note was completed by: Stefania García RN [facility] NURSING PROG HNO ID: [id number] Author: Emily NessRn) ОЛЕГ Linda Service: ? Author Type: Registered Nurse Type: Nursing Progress Note Filed: 10/13/2019 12:12 AM Note Text: Nursing Progress Note Patient Name: Pedro Pablo Sierra Patient Location: [place] [address]/[address] __ Daily Note: 2151-- pt resting [...] reach. 0000-- page to on-call surgery team [phone]-- Pedro Pablo Sierra [id number]-- patients L groin cath site has frequent medium amount of serosanguinous drainage, dressing changed. small hematoma still present. just wanted to make aware. thanks, Emily [phone] 0004-- call back from Noman Fish, general surgery resident, says continue monitoring incision for larger amount of bloody drainage and dehiscence. This note was completed by: Emily Linda RN [facility] PROGRESSon 10-13-2019 PROGRESS HNO ID: [id number] Author: Noman Fish MD Service: General Surgery Author Type: Resident Type: Progress Notes Filed: 10/13/2019 7:13 AM Note Text: [facility]ULAR [facility] POSTOP PROGRESS NOTE Service Date: 10/13/2019Admit Date: 10/08/2019Service Time: 7:08 AM LOS: 5 day(s) Primary Service: Vascular Surgery Vascular Physician: Ryan May MD Interval Events/Issues: Drainage from incision site. Patient angry about discharge, wants lcsso-and-rzykv care at home. Otherwise no acute events. [...] -- 10/11/19 0945 activity - mobilize patient ([place]) 10/08/19 1645 pneumatic compression stockings (de,nd) VTE Prophylaxis: on AC ALLERGIES No Known [...] w/ rest pain and is s/p L ENERGY TECHNICIAN EA w/ bovine patch, L RADHA and EIA thrombectomy, L CI and EI stenting 10/07 c/b thrombosis s/p : EIA to ENERGY TECHNICIAN bypass graft w. Ringed PTFE 10/09. Plan: Continue lovenox to coumadin bridge Reg diet, HLIV PO pain meds S/p brittany-op abx No clark Cont. plavix Dressing changes PRN to groin Dispo: D/c home with [facility] today Noman Fish MD 7:09 AM 10/13/2019 See below: For questions Monday through Monday 6am to 6pm please page Red Team [phone] For questions during nights (6pm - 6am) and weekends, please contact the General Surgery Activities Leader pager, [phone] Normal [facility] Protimeon 10-13-2019 PT Coag (PPP) [Time] 30.6 s High 9.7-13.0 [facility] Comment on above: Performed By: #### C KATHY JUAREZ, PT ####[facility] [place], [place] [phone] PT Coag (PPP) [Time] 2.9 s High 0.9-1.3 [facility] Comment on above: Result Comment: Teri min K Antagonist (VKA) Therapeutic Range: INR 2 to 3 (Target INR of 2.5) Note: For patients treated with VKA drugs, such as warfarin, the [place] [employer] 2012 Guideline recommends [...] Chest 2012, 141:7S-47S Gio RA, et al. [facility] 2017, 70: 252-289 Performed By: #### C KATHY JUAREZ, PT ####[facility] [place], [place] [phone] THERAPY NTon 10-13-2019 THERAPY NT HNO ID: [id number] Author: Shakir Alicea (PtPauline Coello Service: Physical Therapy Author Type: Physical Therapist Type: Therapy (PT/OT/Speech/Resp) Filed: 10/13/2019 1:35 PM Note Text: Physical Therapy Treatment SERVICE DATE: 10/13/2019 SERVICE TIME: 1235 to 1300 ROOM: [place] [address] Recommended Discharge Disposition: Home PT Anticipated Discharge [...] ness on feet Interventions Provided: Gait Training (22914) Gait Training (85053) Treatment Minutes: 25 2 units Skilled Intervention(s): [...] Consult : PVD s/p L LE redo ENERGY TECHNICIAN endarterectomy, L profundoplasty, iliac stenting on 10/08/19 Relevant Past Medical History: S/p L femoral endarterectomy/aoroili ac stenting Patient Report: Pt agreeable to participate in therapy session Home Environment Patient Lives With: Self/Alone Assistance Available: hims coder Entry To Home: Stairs;Other: See Comment(stair lift) [...] October 13, 2019 TIME: 1:34 PM Normal [facility] Basic Metabolic Panlon 10-11 Anion gap [Moles/Vol] 11 mmol/L Normal 9-18 [facility] Comment on above: Performed By: #### C BC, PT, BMP ####[place] [phone] Calcium [Mass/Vol] 8.1 mg/dL Low 8.5-10.5 [facility] Comment on above: Performed By: #### C BC, PT, BMP ####[place] [phone] Chloride [Moles/Vol] 98 mmol/L Normal 98-110 [facility] Comment on above: Performed By: #### C BC, PT, BMP ####[place] [phone] CO2 [Moles/Vol] 26 mmol/L Normal 23-32 [facility] Comment on above: Performed By: #### C BC, PT, BMP ####[place] [phone] Creatinine [Mass/Vol] 0.64 mg/dL Low 0.70-1.40 [facility] Comment on above: Performed By: #### C BC, PT, BMP ####[address] eGFR- Amer. >60 Normal >60 [facility] Comment on above: Performed By: #### C BC, PT, BMP ####[place] [phone] GFR/1.73 sq M predicted among non-blacks MDRD (S/P/Bld) [Vol rate/Area] mL/min/{1.73_m2} Normal >60 [facility] Comment on above: Performed By: #### C BC, PT, BMP ####[place] [phone] Glucose [Mass/Vol] 151 mg/dL High 65-100 [facility] Comment on above: Performed By: #### C BC, PT, BMP ####[place] [phone] Potassium [Moles/Vol] 3.6 mmol/L Normal 3.5-5.0 [facility] Comment on above: Performed By: #### C BC, PT, BMP ####[facility] [place], [place] [phone] Sodium [Moles/Vol] 135 mmol/L Normal 135-146 [facility] Comment on above: Performed By: #### C BC, PT, BMP ####[place] [id number] [place], [place] [phone] Urea nitrogen [Mass/Vol] 8 mg/dL Low 04-12 [facility] Comment on above: Performed By: #### C BC, PT, BMP ####[facility] [place], [place] [phone] CASE MANAGEMon 10-12-2019 CASE MANAGEM HNO ID: [id number] Author: Carly Hutchison) ОЛЕГ Man Service: Case Management Author Type: Registered Nurse Type: Care Mgt Progress Note Filed: 10/12/2019 12:39 PM Note Text: CARE MANAGEMENT PROGRESS NOTE SERVICE DATE: 10/12/2019 SERVICE TIME: 1230 LOS: 4 days Needs Prior to Discharge: To Be Determined Clinicals faxed to [facility] SIGNATURE: Carly Man RN,BSN PATIENT NAME: Pedro Pablo Sierra DATE: October 12, 2019 TIME: 12:38 PM PAGER/CONTACT #: [phone] [facility] CASE MANAGEM HNO ID: [id number] Author: Carly Hutchison) Donovan RN Service: Case [...] 12, 2019 TIME: 10:14 AM PAGER/CONTACT #: [phone] Normal [facility] CBCon 10-12-2019 Erythrocyte distribution width (RBC) [Ratio] 16.0 % High 11.5-15.0 [facility] Comment on above: Performed By: #### C BC, PT, BMP ####[place] [phone] Hematocrit (Bld) [Volume fraction] 29.3 % Low 39.0-51.0 [facility] Comment on above: Performed By: #### C BC, PT, BMP ####[place] [phone] Hemoglobin (Bld) [Mass/Vol] 9.7 g/dL Low 13.0-17.0 [facility] Comment on above: Performed By: #### C BC, PT, BMP ####[place] [phone] MCH (RBC) [Entitic mass] 30.3 pG Normal 26.0-34.0 [facility] Comment on above: Performed By: #### C BC, PT, BMP ####[place] [phone] MCHC (RBC) [Mass/Vol] 33.1 g/dL Normal 30.5-36.0 [facility] Comment on above: Performed By: #### C BC, PT, BMP ####[place] [phone] MCV (RBC) [Entitic vol] 91.6 fL Normal 80.0-100.0 [facility] Comment on above: Performed By: #### C BC, PT, BMP ####[place] [phone] Platelet mean volume (Bld) [Entitic vol] 10.2 fL Normal 9.0-12.7 [facility] Comment on above: Performed By: #### C BC, PT, BMP ####[place] [phone] Platelets (Bld) [#/Vol] 173 10*3/uL Normal 150-400 [facility] Comment on above: Performed By: #### C BC, PT, BMP ####[place] [phone] RBC (Bld) [#/Vol] 3.20 10*6/uL Low 4.20-6.00 [facility] Comment on above: Performed By: #### C BC, PT, BMP ####[place] [phone] WBC (Bld) [#/Vol] 5.98 10*3/uL Normal 3.70-11.00 [facility] Comment on above: Performed By: #### C BC, PT, BMP ####[address] [phone] NURSING PROGon 10-12-2019 NURSING PROG HNO ID: [id number] Author: Daphney (Rn) ОЛЕГ Baron Service: Nursing [...] 1130: Pt assisted to bathroom with nursing education consultant and walker. Pt was able to ambulate from bathroom to bed using walker with standby assist. 1610: Incision to left groin oozing serosang drainage. Gown saturated and needed to be changed. Abd and paper tape applied to cover and collect drainage. Pt c/o pain to left groin, 01/26. Medicated with 10mg po oxycodone. This note was completed by: Daphney Baron RN [facility] PROGRESSon 10-12-2019 PROGRESS HNO ID: [id number] Author: Elly Brown Service: Vascular Surgery Author [...] -- 10/11/19 0945 activity - mobilize patient ([place]) 10/08/19 1645 pneumatic compression stockings (de,oh) VTE Prophylaxis: on AC ALLERGIES No Known [...] w/ rest pain and is s/p L ENERGY TECHNICIAN EA w/ bovine patch, L RADHA and EIA thrombectomy, L CI and EI stenting 10/07 c/b thrombosis s/p : EIA to ENERGY TECHNICIAN bypass graft w. Ringed PTFE 10/09. Plan: [...] CRISPIN stenting on 10/23, UC, CAD previous SC, DM, HTN, HLD, COPD Overall Course: 64 [...] and weekends, please contact the General Surgery Activities Leader pager, [phone] Normal [facility] Protimeon 10-12-2019 PT Coag (PPP) [Time] 15.6 s High 9.7-13.0 [facility] Comment on above: Performed By: #### C BC, PT, BMP ####[facility] [place], [place] [phone] PT Coag (PPP) [Time] 1.5 s High 0.9-1.3 [facility] Comment on above: Result Comment: Teri min K Antagonist (VKA) Therapeutic Range: INR 2 to 3 (Target INR of 2.5) Note: For patients treated with VKA drugs, such as warfarin, the [place] [employer] 2012 Guideline recommends [...] Chest 2012, 141:7S-47S Gio KENNY et al. [facility] 2017, 70: 252-289 Performed By: #### C BC, PT, BMP ####[facility] [place], [place] [phone] ANES POSTPROC EVALon 020 ANES POSTPROC EVAL HNO ID: [id number] Author: Cassie [employer] Service: ? Author Type: Anesthesiologist Type: Anesthesia [...] October 11, 2019 TIME: 7:41 AM CSN: [id number] Normal [facility] Basic Metabolic Panlon 10-10 Anion gap [Moles/Vol] 9 mmol/L Normal 9-18 [facility] Comment on above: Performed By: #### C BC, BMP, MG1, PHOS ####[facility] [place], [place] [phone] Calcium [Mass/Vol] 7.7 mg/dL Low 8.5-10.5 [facility] Comment on above: Performed By: #### C BC, BMP, MG1, PHOS ####[place] [phone] Chloride [Moles/Vol] 101 mmol/L Normal 98-110 [facility] Comment on above: Performed By: #### C BC, BMP, MG1, PHOS ####[place] [phone] CO2 [Moles/Vol] 26 mmol/L Normal 23-32 [facility] Comment on above: Performed By: #### C BC, BMP, MG1, PHOS ####[place] [phone] Creatinine [Mass/Vol] 0.63 mg/dL Low 0.70-1.40 [facility] Comment on above: Performed By: #### C BC, BMP, MG1, PHOS ####[place] [phone] eGFR- Amer. >60 Normal >60 [facility] Comment on above: Performed By: #### C BC, BMP, MG1, PHOS ####[place] [phone] GFR/1.73 sq M predicted among non-blacks MDRD (S/P/Bld) [Vol rate/Area] mL/min/{1.73_m2} Normal >60 [facility] Comment on above: Performed By: #### C BC, BMP, MG1, PHOS ####[place] [phone] Glucose [Mass/Vol] 107 mg/dL High 65-100 [facility] Comment on above: Performed By: #### C BC, BMP, MG1, PHOS ####[place] [phone] Potassium [Moles/Vol] 3.9 mmol/L Normal 3.5-5.0 [facility] Comment on above: Performed By: #### C BC, BMP, MG1, PHOS ####[address], [place] [phone] Sodium [Moles/Vol] 136 mmol/L Normal 135-146 [facility] Comment on above: Performed By: #### C BC, BMP, MG1, PHOS ####[facility] [place], [place] [phone] Urea nitrogen [Mass/Vol] 8 mg/dL Low 10-25 [facility] Comment on above: Performed By: #### C BC, BMP, MG1, PHOS ####[facility] [place], [place] [phone] CASE MGT INIT ASSESon 2019 CASE MGT INIT ASSES HNO ID: [id number] Author: Bri (Олег) ОЛЕГ Swann Service: Case Management Author Type: Registered Nurse Type: Care Mgt Initial Assessment Filed: 10/11/2019 2:43 PM Note Text: CARE MANAGEMENT PROGRESS NOTE SERVICE DATE: 10/11/2019 SERVICE TIME: 2:38 PM LOS: 3 days [place] of Choice Given: Yes Level of Care Discussed: Home Care Financial Disclosure Provided: Yes Financial Disclosure Comments: discussed Needs Prior to Discharge: To Be Determined;Home Care Order CM discussed with pt discharge planning. pt has his home set up for his needs with elevator and refusing rehab at this time due to Covid 19 risks. Pt was active with [facility] for nurse visit and prefers to continue. CM made referral via ascripts, pt will need F2F for PT/OT/SN at d/c. CM flagged weekend CM staff for potential d/c this weekend and will need AVS faxed at d/c to [phone]. CM to follow as needed. SIGNATURE: Bri Swann RN,BSN PATIENT NAME: Pedro Pablo Sierra DATE: October 11, 2019 TIME: 2:38 PM PAGER/CONTACT #: [phone] Normal [facility] CBCon 10-11-2019 Erythrocyte distribution width (RBC) [Ratio] 15.8 % High 11.5-15.0 [facility] Comment on above: Performed By: #### C BC, BMP, MG1, PHOS ####[place] [phone] Hematocrit (Bld) [Volume fraction] 27.2 % Low 39.0-51.0 [facility] Comment on above: Performed By: #### C BC, BMP, MG1, PHOS ####[place] [phone] Hemoglobin (Bld) [Mass/Vol] 8.9 g/dL Low 13.0-17.0 [facility] Comment on above: Performed By: #### C BC, BMP, MG1, PHOS ####[place] [phone] MCH (RBC) [Entitic mass] 29.4 pG Normal 26.0-34.0 [facility] Comment on above: Performed By: #### C BC, BMP, MG1, PHOS ####[place] [phone] MCHC (RBC) [Mass/Vol] 32.7 g/dL Normal 30.5-36.0 [facility] Comment on above: Performed By: #### C BC, BMP, MG1, PHOS ####[place] [phone] MCV (RBC) [Entitic vol] 89.8 fL Normal 80.0-100.0 [facility] Comment on above: Performed By: #### C BC, BMP, MG1, PHOS ####[place] [phone] Platelet mean volume (Bld) [Entitic vol] 9.9 fL Normal 9.0-12.7 [facility] Comment on above: Performed By: #### C BC, BMP, MG1, PHOS ####[place] [phone] Platelets (Bld) [#/Vol] 140 10*3/uL Low 150-400 [facility] Comment on above: Performed By: #### C BC, BMP, MG1, PHOS ####[facility] [place], [place] [phone] RBC (Bld) [#/Vol] 3.03 10*6/uL Low 4.20-6.00 [facility] Comment on above: Performed By: #### C BC, BMP, MG1, PHOS ####[facility] [place] [phone] WBC (Bld) [#/Vol] 5.78 10*3/uL Normal 3.70-11.00 [facility] Comment on above: Performed By: #### C BC, BMP, MG1, PHOS ####[place] [id number] [place], [place] [phone] Magnesiumon 10-11-2019 Magnesium [Mass/Vol] 2.0 mg/dL Normal 1.7-2.6 [facility] Comment on above: Performed By: #### C BC, BMP, MG1, PHOS ####[address] [phone] NURSING PROGon 10-11-2019 NURSING PROG HNO ID: [id number] Author: Briana (Rn) ОЛЕГ Hardy Service: ? Author Type: Registered Nurse Type: Nursing Progress Note Filed: 10/11/2019 2:37 PM Note Text: Nursing Progress Note Patient Name: Pedro Pablo Sierra Patient Location: [id number]/[facility]-0 [facility] __ Daily Note: 0700. Bedside report received from night assistant RN. Patient is resting comfortably in bed [...] care of patient. 1430. Patient transferred to [facility] via bed on portable O2. All belongings and chart sent with patient. This note was completed by: Briana Hardy RN [facility] PROGRESSon 10-11-2019 PROGRESS HNO ID: [id number] Author: Noman Fish MD Service: Vascular Surgery [...] 1043 -- 10/08/19 1645 pneumatic compression stockings (de,oh) VTE Prophylaxis: held for bleeding ALLERGIES No [...] CRISPIN stenting on 10/23, UC, CAD previous SC, DM, HTN, HLD, COPD Overall Course: 63 year old male with acute onset of BLE pain. Taken to OR for initiation of thrombolysis thru LCIA/TORITO Procedure/Surgeries: 1. Aortogram with bilateral ileofemoral runoff via left brachial artery 2. Left leg angiogram, 3rd order 3. Placement of lysis catheter from distal aorta to left SFA, 20cm treatment zone [facility] 07/02/2014 Thrombectomy Airway Difficulty: NA [...] TIME: 7:24 AM PAGER/CONTACT #: See Below ETX#[id number] For questions Monday through Monday 6am to 6pm please page Red Team [phone] For questions during nights (6pm - 6am) and weekends, please contact the General Surgery Activities Leader pager, [phone] [facility] PROGRESS HNO ID: [id number] Author: Rashawn Huntley Service: Critical Care Author [...] CURRENT MEDICATIONS: Medications reviewed. Please refer to [facility] for list of inpatient medications. Current [...] INTRAVENOUS q 2 H PRN Elly (Res) Trudy-Roca 25 mcg at 10/11/19 0648 - hyoscyamine [...] tab(s) (PLAVIX) 75 mg ORAL DAILY Roman ([employer]r) Heinly 75 mg at 10/10/19 0817 - [...] (DUONEB) 3 mL INHALATION QID Elly (Res) Chumakova-Roca 3 mL at 10/10/192046 - NaCl 0.9% [...] hospitalization are listed below. Plese refer to [facility] for a full listing of cultures obtained during this hospitalization. ? N/A DIAGNOSTIC TESTS: The following diagnostic tests/findings were reviewed: ? Most recent labs and imaging results. MOST RECENT CXR FINDINGS: Bibasilar atelectasis. OPERATIVE PROCEDURE(S): Date of surgery: 10/08/19 Procedure: Left common ENERGY TECHNICIAN endarterectomy with bovine path Left profundoplasty Left iliac stenting X4 (I-Cast X2, Jessica X2) Multiple angiograms with angioplasty Surgeon: Dr. May Date of surgery: 10/10/19 Procedure: Left EIA to ENERGY TECHNICIAN bypass with 7mm ringed PTFE end to end proximally to the previously placed bovine patch end to side distally. Completion angiogram Retrograde open RADHA angioplasty with 8 x 80 mustang balloon. Open thrombectomy L iliac artery by leg incision. Surgeon: Dr. 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 May on 10/08/19. She is admitted to SICU post-operatively for neurovascular checks and close hemodynamic monitoring. Developed L ENERGY TECHNICIAN occlusion POD2 and taken back to OR on 10/10/19 for left groin hematoma evacuation, left EIA to ENERGY TECHNICIAN PTFE bypass, left liac thrombectomy. Transferred to [...] -Tubes: Clark -Prophylaxis: SCDs -Dispo: Transfer to [facility] Medication and Non-Pharmacologic VTE Prophylaxis/Anticoagul ants Anticoagulant AND Antiplatelet Medications (From admission, onward) Start Dose Route Frequency Ordered Stop 10/10/19 0900 clopidogrel 75 mg tab(s) (PLAVIX) 75 mg ORAL DAILY 10/09/19 1043 -- 10/08/19 1700 activity - mobilize patient ([place]) 10/08/19 1645 pneumatic compression stockings ([place]) VTE Prophylaxis: Contraindicated elevated risk of bleeding To be seen and discussed on rounds with SICU staff: Dr. Huntley ICU Checklist --------- --- VTE Prophylaxis: SIGNATURE: Misael Jeter MD PATIENT NAME: Pedro Pablo Sierra DATE: October 11, 2019 TIME: 6:40 AM PAGER/CONTACT #: [phone] [facility] STAFF PHYSICIAN NOTE OF PERSONAL INVOLVEMENT IN [...] HTN GERD ? Procedure/Surgeon 10/08/19 S/P L ENERGY TECHNICIAN endarterectomy with bovine path, profundoplasty and iliac [...] DO 11:08 AM October 11, 2019 Normal [facility] Phosphoruson 10-11-2019 Phosphate [Mass/Vol] 1.9 mg/dL Low 2.5-4.5 [facility] Comment on above: Performed By: #### C BC, BMP, MG1, PHOS ####[address] [phone] Protimeon 10-11-2019 PT Coag (PPP) [Time] 10.9 s Normal 9.7-13.0 [facility] Comment on above: Performed By: #### P T ####[address] [phone] PT Coag (PPP) [Time] 1.0 s Normal 0.9-1.3 [facility] Comment on above: Result Comment: Teri min K Antagonist (VKA) Therapeutic Range: INR 2 to 3 (Target INR of 2.5) Note: For patients treated with VKA drugs, such as warfarin, the [place] [employer] 2012 Guideline recommends [...] Chest 2012, 141:7S-47S Gio RA, et al. [facility] 2017, 70: 252-289 Performed By: #### P T ####[place] [id number] [place], [place] [phone] THERAPY NTon 10-11-2019 THERAPY NT HNO ID: [id number] Author: Gini (Pt) Eugenia Melvin Service: Physical Therapy Author Type: Physical Therapist Type: Therapy (PT/OT/Speech/Resp) Filed: 10/11/2019 10:43 AM Note Text: Physical Therapy Treatment SERVICE DATE: 10/11/2019 SERVICE TIME: 934 to 1019 ROOM: [id number] Recommended Discharge Disposition: Home PT Anticipated Discharge [...] Diagnosis: Reduced mobility-other Interventions Provided: Therapeutic Activity (56389);Therapeutic Exercise (76087);Gait Training (55132) Therapeutic Exercise (63467) Treatment Minutes: 15 1 unit Skilled Intervention(s): Instruction in therapeutic exercise supine, very gentle with Daisha JOHNSON. Edu on rationale of exercises. Therapeutic Activity (11206) Treatment Minutes: 20 1 unit Skilled Intervention(s): Instructed patient in supine to sit pushing with upper extremities to sit up Instructed patient in supine to and from sit pushing with upper extremities to sit up Instruction in sit to stand technique with proper hand placement and body positioning at edge of bed/chair Gait Training (81458) Treatment Minutes: 10 1 unit Skilled Intervention(s): Instruction in sequencing, gait pattern and Instruction in correction of gait deviations Total Timed Code Treatment Minutes: 45 Total Treatment Time (minutes): 45 SUBJECTIVE: Current Hospital Course: Chart reviewed and no significant medical updates relevant to therapy were noted Reason for Physical Therapy Consult : PVD s/p L LE redo ENERGY TECHNICIAN endarterectomy, L profundoplasty, iliac stenting on 10/08/19 Relevant Past Medical History: S/p L femoral endarterectomy/aoroili ac stenting Patient Report: My Left leg is incredibly sore right now, moving is going to have to be slow. (And it is.) Home Environment Patient Lives With: Self/Alone Assistance Available: hims coder Entry To Home: Stairs;Other: See Comment(stair lift) [...] October 11, 2019 TIME: 10:40 AM Normal [facility] THERAPY NT HNO ID: [id number] Author: Caitlin Flanagan) William Service: Occupational Therapy Author Type: Occupational Therapist Type: Therapy (PT/OT/Speech/Resp) Filed: 10/11/2019 6:48 AM Note Text: OCCUPATIONAL THERAPY MISSED VISIT SERVICE DATE: 10/11/2019 SERVICE TIME: 646 to 06 ROOM: [place] [address] Attempted Treatment. Patient not seen due to Incomplete Orders. Pt is currently on bedrest. Please update activity orders when medically appropriate for participation in Occupational Therapy treatment and out of bed mobility. Thank you. SIGNATURE: Caitlin Thomas OTR/L PATIENT NAME: Pedro Pablo Sierra DATE: October 11, 2019 TIME: 6:47 AM Normal [facility] ABG Complete Eval FOR SEFERINO Kauffman 10-10-2019 Base Excess 1 mmol/L Normal [facility] Comment on above: Result Comment: -3 t o 3 Performed By: #### A BGRTC ####[facility] [place], [place] [phone] Calcium [Mass/Vol] 1.29 mmol/L Normal 1.15-1.35 [facility] Comment on above: Performed By: #### A BGRTC ####[facility] [place], [place] [phone] Carboxyhemoglobin,Art 1.0 % Normal <2.0 [facility] Comment on above: Performed By: #### A BGRTC ####[place] [phone] Chloride, Whole Bld FOR WEST USE ONLY 105 mmol/L Normal 98-107 [facility] Comment on above: Performed By: #### A BGRTC ####[place] [phone] CO2 [Moles/Vol] 27 mmol/L Normal 22.0-28.0 [facility] Comment on above: Performed By: #### A BGRTC ####[place] [phone] Glucose [Mass/Vol] 132 mg/dL High 65-100 [facility] Comment on above: Performed By: #### A BGRTC ####[place] [phone] HCO3 (Bld) [Moles/Vol] 26 mmol/L Normal 22-26 [facility] Comment on above: Performed By: #### A BGRTC ####[place] [phone] Hematocrit (Bld) [Volume fraction] 26.3 % Low 42.0-52.0 [facility] Comment on above: Performed By: #### A BGRTC ####[place] [phone] Hemoglobin (Bld) [Mass/Vol] 8.5 g/dL Low 14-18 [facility] Comment on above: Performed By: #### A BGRTC ####[place] [phone] Lactate [Moles/Vol] 1.5 mmol/L Normal 0.4-2.0 [facility] Comment on above: Performed By: #### A BGRTC ####[place] [phone] Methemoglobin 1.4 % Normal 0.4-1.5 [facility] Comment on above: Performed By: #### A BGRTC ####[place] [phone] O2 Administered 21.0 Normal [facility] Comment on above: Performed By: #### A BGRTC ####[place] [phone] Oxygen (Bld) [Partial pressure] 136 mm Hg High 80-100 [facility] Comment on above: Performed By: #### A BGRTC ####[place] [phone] Oxygen (Bld) [Partial pressure] 99 % High 90-98 [facility] Comment on above: Performed By: #### A BGRTC ####[place] [phone] Oxyhemoglobin, Art. 96 % Normal 94-100 [facility] Comment on above: Performed By: #### A BGRTC ####[place] [phone] pCO2 46 mm Hg Normal 35-48 [facility] Comment on above: Performed By: #### A BGRTC ####[place] [phone] pH (Bld) 7.37 [pH] Normal 7.35-7.45 [facility] Comment on above: Performed By: #### A BGRTC ####[place] [phone] PO2FI FOR WEST USE ONLY 648 mmHG High 400-500 [facility] Comment on above: Performed By: #### A BGRTC ####[place] [phone] Potassium [Moles/Vol] 3.9 mmol/L Normal 3.5-5.0 [facility] Comment on above: Performed By: #### A BGRTC ####[place] [phone] Sodium [Moles/Vol] 137 mmol/L Normal 135-145 [facility] Comment on above: Performed By: #### A BGRTC ####[place] [phone] Base Excess 2 mmol/L Normal [facility] Comment on above: Result Comment: -3 t o 3 Performed By: #### A BGRTC ####[place] [phone] Calcium [Mass/Vol] 1.09 mmol/L Low 1.15-1.35 [facility] Comment on above: Performed By: #### A BGRTC ####[place] [phone] Carboxyhemoglobin,Art 1.3 % Normal <2.0 [facility] Comment on above: Performed By: #### A BGRTC ####[place] [phone] Chloride, Whole Bld FOR WEST USE ONLY 106 mmol/L Normal 98-107 [facility] Comment on above: Performed By: #### A BGRTC ####[place] [phone] CO2 [Moles/Vol] 28 mmol/L Normal 22.0-28.0 [facility] Comment on above: Performed By: #### A BGRTC ####[place] [phone] Glucose [Mass/Vol] 129 mg/dL High 65-100 [facility] Comment on above: Performed By: #### A BGRTC ####[place] [phone] HCO3 (Bld) [Moles/Vol] 27 mmol/L High 22-26 [facility] Comment on above: Performed By: #### A BGRTC ####[place] [phone] Hematocrit (Bld) [Volume fraction] 24.6 % Low 42.0-52.0 [facility] Comment on above: Performed By: #### A BGRTC ####[place] [phone] Hemoglobin (Bld) [Mass/Vol] 7.9 g/dL Low 14-18 [facility] Comment on above: Performed By: #### A BGRTC ####[place] [phone] Lactate [Moles/Vol] 1.1 mmol/L Normal 0.4-2.0 [facility] Comment on above: Performed By: #### A BGRTC ####[place] [phone] Methemoglobin 1.2 % Normal 0.4-1.5 [facility] Comment on above: Performed By: #### A BGRTC ####[place] [phone] O2 Administered 21.0 Normal [facility] Comment on above: Performed By: #### A BGRTC ####[place] [phone] Oxygen (Bld) [Partial pressure] 164 mm Hg High 80-100 [facility] Comment on above: Performed By: #### A BGRTC ####[place] [phone] Oxygen (Bld) [Partial pressure] 99 % High 90-98 [facility] Comment on above: Performed By: #### A BGRTC ####[place] [phone] Oxyhemoglobin, Art. 97 % Normal 94-100 [facility] Comment on above: Performed By: #### A BGRTC ####[place] [phone] pCO2 44 mm Hg Normal 35-48 [facility] Comment on above: Performed By: #### A BGRTC ####[place] [phone] pH (Bld) 7.40 [pH] Normal 7.35-7.45 [facility] Comment on above: Performed By: #### A BGRTC ####[place] [id number] [place], [place] [phone] PO2FI FOR WEST USE ONLY 781 mmHG High 400-500 [facility] Comment on above: Performed By: #### A BGRTC ####[address] [phone] Potassium [Moles/Vol] 3.6 mmol/L Normal 3.5-5.0 [facility] Comment on above: Performed By: #### A BGRTC ####[address] [phone] Sodium [Moles/Vol] 137 mmol/L Normal 135-145 [facility] Comment on above: Performed By: #### A BGRTC ####[address] [phone] ALLIED HEALTHon 10-10-2019 ALLIED HEALTH HNO ID: [id number] Author: Judie NessRtWilliam Amaya Service: Radiology Author Type: [employer] Licensee Type: Allied Health Filed: 10/10/2019 6:31 AM [...] Víctor October 10, 2019 6:31 AM Normal [facility] ANES PRE-OPon 10-10-2019 ANES PRE-OP HNO ID: [id number] Author: Joey Sequeira Service: ? Author Type: [...] (+) Hypertension (+) PVD (peripheral vascular disease) ([facility]) (+) s/p left femoral endarterectomy/aortoil iac stenting 10/08/2019 (now with L ENERGY TECHNICIAN occlusion) PULMONARY (+) COPD (chronic obstructive pulmonary disease) ([facility]) (+) PJ (obstructive sleep apnea) ANESTHESIA (+) PJ (obstructive sleep apnea) NEURO-PSYCH (+) Headache GI (+) GERD (gastroesophageal reflux disease) Other (+) Anemia due to acute blood loss (Hgb 7.4 this AM; will order 2 units PRBCs) (+) Lupus anticoagulant disorder ([facility]) I - PHYSICAL EVALUATION AIRWAY Patient intubated: [...] (iso-osmotic) 100 mL (ANCEF) 2 g INTRAVENOUS Activities Leader to OR - NaCl 0.9% iv infusion [...] movements. - COMPOUNDED PRESCRIPTION Aerosol supplies Dx:J44.1 NPI#[id number] - ipratropium-albuterol (DUONEB) 0.5 mg-3 mg(2.5 mg [...] October 10, 2019 TIME: 8:21 AM CSN: [id number] Normal [facility] APTTon 10-10-2019 aPTT Coag (Bld) [Time] 25.4 s Normal 23.0-32.4 [facility] Comment on above: Result Comment: Unfr [...] laboratory APTT reagent in use throughout the [facility]. Performed By: #### C BCDIF, PTT, FIBCT, PT ####[facility] [place], [place] [phone] aPTT Coag (Bld) [Time] 126.3 s High 23.0-32.4 [facility] Comment on above: Result Comment: Unfr [...] laboratory APTT reagent in use throughout the [facility]. Called to and read back by: Landry Quintana RN [facility] 10/10/19 [facility]5 [facility] Performed By: #### C BCDIF, BMP, MG1, PHOS, PTT, PT ####[facility] [place], [place] [phone] aPTT Coag (Bld) [Time] 44.1 s High 23.0-32.4 [facility] Comment on above: Result Comment: Unfr [...] laboratory APTT reagent in use throughout the [facility]. Performed By: #### P TT ####[facility] [place], [place] [phone] Basic Metabolic Panlon 10-09 Anion gap [Moles/Vol] 11 mmol/L Normal 9-18 [facility] Comment on above: Performed By: #### C BCDIF, BMP, MG1, PHOS, PTT, PT ####[place] [phone] Calcium [Mass/Vol] 8.0 mg/dL Low 8.5-10.5 [facility] Comment on above: Performed By: #### C BCDIF, BMP, MG1, PHOS, PTT, PT ####[place] [phone] Chloride [Moles/Vol] 103 mmol/L Normal 98-110 [facility] Comment on above: Performed By: #### C BCDIF, BMP, MG1, PHOS, PTT, PT ####[place] [phone] CO2 [Moles/Vol] 24 mmol/L Normal 23-32 [facility] Comment on above: Performed By: #### C BCDIF, BMP, MG1, PHOS, PTT, PT ####[place] [phone] Creatinine [Mass/Vol] 0.68 mg/dL Low 0.70-1.40 [facility] Comment on above: Performed By: #### C BCDIF, BMP, MG1, PHOS, PTT, PT ####[place] [phone] eGFR- Amer. >60 Normal >60 [facility] Comment on above: Performed By: #### C BCDIF, BMP, MG1, PHOS, PTT, PT ####[place] [phone] GFR/1.73 sq M predicted among non-blacks MDRD (S/P/Bld) [Vol rate/Area] mL/min/{1.73_m2} Normal >60 [facility] Comment on above: Performed By: #### C BCDIF, BMP, MG1, PHOS, PTT, PT ####[place] [phone] Glucose [Mass/Vol] 127 mg/dL High 65-100 [facility] Comment on above: Performed By: #### C BCDIF, BMP, MG1, PHOS, PTT, PT ####[place] [phone] Potassium [Moles/Vol] 4.3 mmol/L Normal 3.5-5.0 [facility] Comment on above: Performed By: #### C BCDIF, BMP, MG1, PHOS, PTT, PT ####[place] [phone] Sodium [Moles/Vol] 138 mmol/L Normal 135-146 [facility] Comment on above: Performed By: #### C BCDIF, BMP, MG1, PHOS, PTT, PT ####[place] [id number] Urea nitrogen [Mass/Vol] 9 mg/dL Low 10-25 [facility] Comment on above: Performed By: #### C BCDIF, BMP, MG1, PHOS, PTT, PT ####[place] [id number] Anion gap [Moles/Vol] 8 mmol/L Low 9-18 [facility] Comment on above: Performed By: #### C BC, BMP, MG1, PHOS ####[place] [id number] Calcium [Mass/Vol] 7.9 mg/dL Low 8.5-10.5 [facility] Comment on above: Performed By: #### C BC, BMP, MG1, PHOS ####[place] [phone] Chloride [Moles/Vol] 101 mmol/L Normal 98-110 [facility] Comment on above: Performed By: #### C BC, BMP, MG1, PHOS ####[place] [phone] CO2 [Moles/Vol] 27 mmol/L Normal 23-32 [facility] Comment on above: Performed By: #### C BC, BMP, MG1, PHOS ####[place] [phone] Creatinine [Mass/Vol] 0.69 mg/dL Low 0.70-1.40 [facility] Comment on above: Performed By: #### C BC, BMP, MG1, PHOS ####[place] [phone] eGFR- Amer. >60 Normal >60 [facility] Comment on above: Performed By: #### C BC, BMP, MG1, PHOS ####[place] [phone] GFR/1.73 sq M predicted among non-blacks MDRD (S/P/Bld) [Vol rate/Area] mL/min/{1.73_m2} Normal >60 [facility] Comment on above: Performed By: #### C BC, BMP, MG1, PHOS ####[place] [phone] Glucose [Mass/Vol] 107 mg/dL High 65-100 [facility] Comment on above: Performed By: #### C BC, BMP, MG1, PHOS ####[place] [phone] Potassium [Moles/Vol] 3.8 mmol/L Normal 3.5-5.0 [facility] Comment on above: Performed By: #### C BC, BMP, MG1, PHOS ####[place] [phone] Sodium [Moles/Vol] 136 mmol/L Normal 135-146 [facility] Comment on above: Performed By: #### C BC, BMP, MG1, PHOS ####[place] [phone] Urea nitrogen [Mass/Vol] 11 mg/dL Normal 10-25 [facility] Comment on above: Performed By: #### C BCKATHY, MG1, PHOS ####[place] [phone] CASE MANAGEMon 10-10-2019 CASE MANAGEM HNO ID: [id number] Author: Bri NessRn) ОЛЕГ Swann Service: Case [...] 10, 2019 TIME: 4:23 PM PAGER/CONTACT #: [phone] Normal [facility] CBCon 10-10-2019 Erythrocyte distribution width (RBC) [Ratio] 16.0 % High 11.5-15.0 [facility] Comment on above: Performed By: #### C BC, KATHY, MG1, PHOS ####[place] [phone] Hematocrit (Bld) [Volume fraction] 23.2 % Low 39.0-51.0 [facility] Comment on above: Performed By: #### C BC, BMP, MG1, PHOS ####[place] [id number] [place] [phone] Hemoglobin (Bld) [Mass/Vol] 7.5 g/dL Low 13.0-17.0 [facility] Comment on above: Performed By: #### C BC, BMP, MG1, PHOS ####[place] [phone] MCH (RBC) [Entitic mass] 30.1 pG Normal 26.0-34.0 [facility] Comment on above: Performed By: #### C BC, BMP, MG1, PHOS ####[place] [phone] MCHC (RBC) [Mass/Vol] 32.3 g/dL Normal 30.5-36.0 [facility] Comment on above: Performed By: #### C BC, BMP, MG1, PHOS ####[place] [phone] MCV (RBC) [Entitic vol] 93.2 fL Normal 80.0-100.0 [facility] Comment on above: Performed By: #### C BC, BMP, MG1, PHOS ####[place] [phone] Platelet mean volume (Bld) [Entitic vol] 9.8 fL Normal 9.0-12.7 [facility] Comment on above: Performed By: #### C BC, BMP, MG1, PHOS ####[place] [phone] Platelets (Bld) [#/Vol] 180 10*3/uL Normal 150-400 [facility] Comment on above: Performed By: #### C BC, BMP, MG1, PHOS ####[place] [phone] RBC (Bld) [#/Vol] 2.49 10*6/uL Low 4.20-6.00 [facility] Comment on above: Performed By: #### C BC, BMP, MG1, PHOS ####[place] [phone] WBC (Bld) [#/Vol] 6.64 10*3/uL Normal 3.70-11.00 [facility] Comment on above: Performed By: #### C BC, BMP, MG1, PHOS ####[place] [phone] CBC and Differentialon 04-23 -2020 Abs Baso 0.03 k/uL Normal <0.11 [facility] Comment on above: Performed By: #### C BCDIF, PTT, FIBCT, PT ####[place] [phone] Abs Gonzales 0.69 k/uL Normal <0.87 [facility] Comment on above: Performed By: #### C BCDIF, PTT, FIBCT, PT ####[place] [phone] Abs Neut 5.56 k/uL Normal 1.45-7.50 [facility] Comment on above: Performed By: #### C BCDIF, PTT, FIBCT, PT ####[place] [phone] Basophils/100 WBC (Bld) 0.4 % Normal [facility] Comment on above: Performed By: #### C BCDIF, PTT, FIBCT, PT ####[place] [phone] Eosinophils (Bld) [#/Vol] 10*3/uL Normal <0.46 [facility] Comment on above: Performed By: #### C BCDIF, PTT, FIBCT, PT ####[place] [phone] Eosinophils/100 WBC (Bld) 0.3 % Normal [facility] Comment on above: Performed By: #### C BCDIF, PTT, FIBCT, PT ####[place] [phone] Erythrocyte distribution width (RBC) [Ratio] 16.9 % High 11.5-15.0 [facility] Comment on above: Performed By: #### C BCDIF, PTT, FIBCT, PT ####[place] [phone] Hematocrit (Bld) [Volume fraction] 21.7 % Low 39.0-51.0 [facility] Comment on above: Performed By: #### C BCDIF, PTT, FIBCT, PT ####[place] [phone] Hemoglobin (Bld) [Mass/Vol] 7.1 g/dL Low 13.0-17.0 [facility] Comment on above: Performed By: #### C BCDIF, PTT, FIBCT, PT ####[place] [phone] Lymphocytes (Bld) [#/Vol] 1.03 10*3/uL Normal 1.00-4.00 [facility] Comment on above: Performed By: #### C BCDIF, PTT, FIBCT, PT ####[place] [phone] Lymphocytes/100 WBC (Bld) 14.1 % Normal [facility] Comment on above: Performed By: #### C BCDIF, PTT, FIBCT, PT ####[place] [phone] MCH (RBC) [Entitic mass] 29.5 pG Normal 26.0-34.0 [facility] Comment on above: Performed By: #### C BCDIF, PTT, FIBCT, PT ####[place] [phone] MCHC (RBC) [Mass/Vol] 32.7 g/dL Normal 30.5-36.0 [facility] Comment on above: Performed By: #### C BCDIF, PTT, FIBCT, PT ####[place] [phone] MCV (RBC) [Entitic vol] 90.0 fL Normal 80.0-100.0 [facility] Comment on above: Performed By: #### C BCDIF, PTT, FIBCT, PT ####[place] [phone] Monocytes/100 WBC (Bld) 9.4 % Normal [facility] Comment on above: Performed By: #### C BCDIF, PTT, FIBCT, PT ####[place] [phone] Neutrophils/100 WBC (Bld) 75.8 % Normal [facility] Comment on above: Performed By: #### C BCDIF, PTT, FIBCT, PT ####[place] [phone] Platelet mean volume (Bld) [Entitic vol] 10.0 fL Normal 9.0-12.7 [facility] Comment on above: Performed By: #### C BCDIF, PTT, FIBCT, PT ####[place] [address] Platelets (Bld) [#/Vol] 167 10*3/uL Normal 150-400 [facility] Comment on above: Performed By: #### C BCDIF, PTT, FIBCT, PT ####[place] [address] RBC (Bld) [#/Vol] 2.41 10*6/uL Low 4.20-6.00 [facility] Comment on above: Performed By: #### C BCDIF, PTT, FIBCT, PT ####[place] [address] WBC (Bld) [#/Vol] 7.33 10*3/uL Normal 3.70-11.00 [facility] Comment on above: Performed By: #### C BCDIF, PTT, FIBCT, PT ####[address] Abs Baso 0.04 k/uL Normal <0.11 [facility] Comment on above: Performed By: #### C BCDIF, BMP, MG1, PHOS, PTT, PT ####[place] [phone] Abs Gonzales 0.56 k/uL Normal <0.87 [facility] Comment on above: Performed By: #### C BCDIF, BMP, MG1, PHOS, PTT, PT ####[place] [address] Abs Neut 5.40 k/uL Normal 1.45-7.50 [facility] Comment on above: Performed By: #### C BCDIF, BMP, MG1, PHOS, PTT, PT ####[place] [address] Basophils/100 WBC (Bld) 0.6 % Normal [facility] Comment on above: Performed By: #### C BCDIF, BMP, MG1, PHOS, PTT, PT ####[place] [address] DTYPE Auto Diff Normal [facility] Comment on above: Performed By: #### C BCDIF, PTT, FIBCT, PT ####[place] [address] Performed By: #### C BCDIF, BMP, MG1, PHOS, PTT, PT ####[place] [address] Eosinophils (Bld) [#/Vol] 0.06 10*3/uL Normal <0.46 [facility] Comment on above: Performed By: #### C BCDIF, BMP, MG1, PHOS, PTT, PT ####[place] [address] Eosinophils/100 WBC (Bld) 0.8 % Normal [facility] Comment on above: Performed By: #### C BCDIF, BMP, MG1, PHOS, PTT, PT ####[place] [address] Erythrocyte distribution width (RBC) [Ratio] 16.6 % High 11.5-15.0 [facility] Comment on above: Performed By: #### C BCDIF, BMP, MG1, PHOS, PTT, PT ####[place] [address] Hematocrit (Bld) [Volume fraction] 24.9 % Low 39.0-51.0 [facility] Comment on above: Performed By: #### C BCDIF, BMP, MG1, PHOS, PTT, PT ####[place] [phone] Hemoglobin (Bld) [Mass/Vol] 8.3 g/dL Low 13.0-17.0 [facility] Comment on above: Performed By: #### C BCDIF, BMP, MG1, PHOS, PTT, PT ####[place] [phone] Lymphocytes (Bld) [#/Vol] 1.07 10*3/uL Normal 1.00-4.00 [facility] Comment on above: Performed By: #### C BCDIF, BMP, MG1, PHOS, PTT, PT ####[place] [phone] Lymphocytes/100 WBC (Bld) 15.0 % Normal [facility] Comment on above: Performed By: #### C BCDIF, BMP, MG1, PHOS, PTT, PT ####[place] [phone] MCH (RBC) [Entitic mass] 30.3 pG Normal 26.0-34.0 [facility] Comment on above: Performed By: #### C BCDIF, BMP, MG1, PHOS, PTT, PT ####[place] [phone] MCHC (RBC) [Mass/Vol] 33.3 g/dL Normal 30.5-36.0 [facility] Comment on above: Performed By: #### C BCDIF, BMP, MG1, PHOS, PTT, PT ####[place] [phone] MCV (RBC) [Entitic vol] 90.9 fL Normal 80.0-100.0 [facility] Comment on above: Performed By: #### C BCDIF, BMP, MG1, PHOS, PTT, PT ####[place] [phone] Monocytes/100 WBC (Bld) 7.9 % Normal [facility] Comment on above: Performed By: #### C BCDIF, BMP, MG1, PHOS, PTT, PT ####[place] [phone] Neutrophils/100 WBC (Bld) 75.7 % Normal [facility] Comment on above: Performed By: #### C BCDIF, BMP, MG1, PHOS, PTT, PT ####[place] [phone] Platelet mean volume (Bld) [Entitic vol] 9.8 fL Normal 9.0-12.7 [facility] Comment on above: Performed By: #### C BCDIF, BMP, MG1, PHOS, PTT, PT ####[place] [phone] Platelets (Bld) [#/Vol] 173 10*3/uL Normal 150-400 [facility] Comment on above: Performed By: #### C BCDIF, BMP, MG1, PHOS, PTT, PT ####[place] [phone] RBC (Bld) [#/Vol] 2.74 10*6/uL Low 4.20-6.00 [facility] Comment on above: Performed By: #### C BCDIF, BMP, MG1, PHOS, PTT, PT ####[place] [phone] WBC (Bld) [#/Vol] 7.13 10*3/uL Normal 3.70-11.00 [facility] Comment on above: Performed By: #### C BCDIF, BMP, MG1, PHOS, PTT, PT ####[place] [phone] Fibrinogenon 10-10-2019 Fibrinogen 410 mg/dL High 200-400 [facility] Comment on above: Performed By: #### C BCDIF, PTT, FIBCT, PT ####[place] [phone] HISTORY PHYSICALon 0 HISTORY PHYSICAL HNO ID: [id number] Author: Ryan May MD Service: Vascular Surgery Author Type: Physician Type: HANDP Filed: 10/10/2019 9:03 AM Note Text: As a result of the 09/03/19 order by [facility] Director Libby Harris M.D. to cancel non-essential surgeries that would use PPE, unless special criteria are met, I have reviewed the clinical record for this patient and have determined that the scheduled procedure meets the criteria to go forward because there is a threat of permanent dysfunction of an extremity or organ system. Possible thrombosis of the left ENERGY TECHNICIAN graft. Possible hematoma. Plan to reexplore, evacuate hematoma, possible ileo-femoral bypass vs fem-fem bypass. Jermaine May MD Normal [facility] Hematocriton 10-10-2019 Hematocrit (Bld) [Volume fraction] 23.1 % Low 39.0-51.0 [facility] Comment on above: Performed By: #### H CT, HGB ####[phone] Hemoglobinon 10-10-2019 Hemoglobin (Bld) [Mass/Vol] 7.4 g/dL Low 13.0-17.0 [facility] Comment on above: Performed By: #### H CT, HGB ####[phone] Magnesiumon 10-10-2019 Magnesium [Mass/Vol] 1.8 mg/dL Normal 1.7-2.6 [facility] Comment on above: Performed By: #### C BCDIF, BMP, MG1, PHOS, PTT, PT ####[place] [phone] Magnesium [Mass/Vol] 2.0 mg/dL Normal 1.7-2.6 [facility] Comment on above: Performed By: #### C BC, BMP, MG1, PHOS ####[facility] [place], [place] [phone] NURSING PROGon 10-10-2019 NURSING PROG HNO ID: [id number] Author: Yeimi NessRn) Mravin, ОЛЕГ Service: ? Author Type: Registered Nurse Type: Nursing Progress Note Filed: 10/11/2019 7:38 AM Note Text: Nursing Progress Note Patient Name: Pedro Pablo Sierra Patient Location: [id number]/[facility] __ Daily Note: 1900 Received bedside report from Josse AHUJA. 1999 Assessment complete. Please see all flowsheets. 2100 2 units of blood ordered per Dr. Johnson. 2199 Started 1 unit of PRBC per order. 0 Dr. Johnson and fire extinguisher charger Daphney rounding on pt. SBAR given. New orders received. 2214 Spoke lwkk-[id number] with Dr. Johnson. Okay to go by cuff pressure. 5 Started 1 unit of PRBC per order. 0000 Reassessment complete. Please see all flowsheets. 0130 Dr. Johnson at bedside. SBAR given. Per Dr. Johnson, draw AM labs at 0330. 0400 Reassessment complete. Please see all flowsheets. 0715 Bedside report given to Briana AHUJA. Normal [facility] NURSING PROG HNO ID: [id number] Author: Fran NessRn) ОЛЕГ Quintana Service: Critical Care Author Type: Registered Nurse Type: Nursing Progress Note Filed: 10/10/2019 7:55 PM Note Text: Nursing Progress Note Patient Name: Pedro Pablo Sierra Patient Location: [id number]/[facility] - __ Daily Note: 0800: Full assessment complete. 0810: Talking with Misael, who would like amlodipine held this AM, okay to give metoprolol, and okayed by vascular surgery resident to give plavix. 0830: OR team at bedside. SBAR report. Plan to give cefazolin and PRBCs in OR. [phone]: On the phone with Joseph (pt's ex-) who is concerned because she was not updated on when pt went to surgery and is not getting updates like before via text. Joseph is also stating that she signed papers at [facility] recently transfering Health Care POA into her name. Last AD is from 2013 with Michelle (daughter) as POA. 1042: Page to case management [facility] 245 in OR Mr. Sierra [phone]: Ania (pt's ex-) states that she submitted papers recently while at [facility] that she is healthcare POA. Last AD I see is 2013 that has Michelle Richmond (pt's daughter) as POA. -Josse AHUJA [phone]: pT disoriented to self and time emerging from anesthesia. 1620: Pt calling insurance verification clerk light stating he is bleeding. Upon assessment, blood seeping gown and chucks pad under pt. Pressure applied to L groin sight. Page to Dr. Jeter (surgical forceps fabricator). 1621: Dr. Jeter at bedside, assuming full [...] note was completed by: Fran Quintana RN [facility] NURSING PROG HNO ID: [id number] Author: Chrystal NessRn) ОЛЕГ Jacob Service: Critical Care Author Type: Registered Nurse Type: Nursing Progress Note Filed: 10/10/2019 6:32 AM Note Text: Nursing Progress Note Patient Name: Pedro Pablo Sierra Patient Location: [id number]/[facility] - __ Daily Note: 1900: Bedside handoff received from ОЛЕГ Patel. Patient resting in bed, Heparin gtt verified. Pulses dual checked 1999: Full assessment completed. See doc flowsheets. 0000: Reassessment completed. Pulses still present via dopplar. 0400: Reassessment completed. See doc flowsheets. 0545: Patient pulled out IV. Reduced access. Dr. Moody aware. IV fluids stopped. This note was completed by: Chrystal Jacob RN [facility] OPERATIVE NOon 10-10-2019 OPERATIVE NO HNO ID: [id number] Author: Ryan May MD Service: Vascular Surgery Author Type: Physician Type: Operative Report Filed: 10/10/2019 1:51 PM Note Text: OPERATIVE/PROCEDURE REPORT LOG ID: [id number] Surgery/Procedure Date: 10/10/2019 Incision/Procedure Start Time:9:52 AM Incision Close/Procedure End Time: 13:49 Surgeon(s)/Procedurali st(s) and Disk Grinder(s): Surgeon(s) and Role: * Ryan May MD - Primary * Elly (Binu Brown - Resident - Assisting No Additional Staff Anesthesia: General Procedure(s): Left EIA to ENERGY TECHNICIAN bypass with 7mm ringed PTFE end to [...] to side to the patch. The proximal ENERGY TECHNICIAN was clamped with four orange clips. Flow [...] DATE: 10/10/2019 TIME: 1:40 PM PAGER/CONTACT #: [facility] PROGRESSon 10-10-2019 PROGRESS HNO ID: [id number] Author: Elly (Binu Brown Service: Vascular Surgery [...] (iso-osmotic) 100 mL (ANCEF) 2 g INTRAVENOUS Activities Leader to OR - NaCl 0.9% iv infusion [...] 1604 -- 10/08/19 1645 pneumatic compression stockings (de,oh) VTE Prophylaxis: on hep gtt ALLERGIES No [...] hematoma evacuation, possible thrombectomy, possible fem/fem. 2U insurance verification clerk to OR Ok to cont. AC Ancef insurance verification clerk to OR HOSPITALIZATION(S) Indication for admission/procedure: BLE pain Important/Relevant PMH/PSH: s/p left femoral endarterectomy with patch, US guided access RCFA, L profundaplasty, RUFUS recanalization AND stenting, CRISPIN stenting on 10/23, UC, CAD previous SC, DM, HTN, HLD, COPD Overall Course: 63 year old male with acute onset of BLE pain. Taken to OR for initiation of thrombolysis thru LCIA/TORITO Procedure/Surgeries: 1. Aortogram with bilateral ileofemoral runoff via left brachial artery 2. Left leg angiogram, 3rd order 3. Placement of lysis catheter from distal aorta to left SFA, 20cm treatment zone [facility] 07/02/2014 Thrombectomy Airway Difficulty: NA [...] 10, 2019 TIME: 7:50 AM PAGER/CONTACT #: [phone] [facility] PROGRESS HNO ID: [id number] Author: Rashawn Huntley Service: Critical Care Author [...] CURRENT MEDICATIONS: Medications reviewed. Please refer to [facility] for list of inpatient medications. Current [...] (iso-osmotic) 100 mL (ANCEF) 2 g INTRAVENOUS Activities Leader to OR Juliana (Yariel) Akshat - NaCl [...] hospitalization are listed below. Plese refer to [facility] for a full listing of cultures obtained during this hospitalization. ? N/A DIAGNOSTIC TESTS: The following diagnostic tests/findings were reviewed: ? Most recent labs and imaging results. MOST RECENT CXR FINDINGS: Increased vascular markings, likely fluid overload. OPERATIVE PROCEDURE(S): Date of surgery: 10/08/19 Procedure: Left common ENERGY TECHNICIAN endarterectomy with bovine path Left profundoplasty Left iliac stenting X4 (I-Cast X2, Jessica X2) Multiple angiograms with angioplasty Surgeon: Dr. 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 May on 10/08/19. She is admitted to SICU post-operatively for neurovascular checks and close hemodynamic monitoring. Developed L ENERGY TECHNICIAN occlusion POD2 and going back to OR [...] -- 10/08/19 1700 activity - mobilize patient (de,nd) 10/08/19 1645 pneumatic compression stockings ([place]) VTE Prophylaxis: VTE prophylaxis appropriate To be seen and discussed on rounds with SICU staff: Dr. Huntley ICU Checklist --------- --- VTE Prophylaxis: SIGNATURE: Misael Jeter MD PATIENT NAME: Pedro Pablo Sierra DATE: October 10, 2019 TIME: 6:40 AM PAGER/CONTACT #: [phone] [facility] STAFF PHYSICIAN NOTE OF PERSONAL INVOLVEMENT IN [...] HTN GERD ? Procedure/Surgeon 10/08/19 S/P L ENERGY TECHNICIAN endarterectomy with bovine path, profundoplasty and iliac [...] DO 7:56 AM October 10, 2019 Normal [facility] PTT,Anticoag Therapyon 10-09 aPTT Coag (Bld) [Time] 109.7 s High 23.0-32.4 [facility] Comment on above: Result Comment: Unfr [...] laboratory APTT reagent in use throughout the [facility]. Called to and read back by: Landry Quintana RN [facility] 10/10/19 Noemí HOLLIS Performed By: #### P TTAC ####[place] [phone] Phosphoruson 10-10-2019 Phosphate [Mass/Vol] 3.0 mg/dL Normal 2.5-4.5 [facility] Comment on above: Performed By: #### C BCDIF, BMP, MG1, PHOS, PTT, PT ####[address] [phone] Phosphate [Mass/Vol] 2.1 mg/dL Low 2.5-4.5 [facility] Comment on above: Performed By: #### C BC, BMP, MG1, PHOS ####[address] [phone] Protimeon 10-10-2019 PT Coag (PPP) [Time] 10.5 s Normal 9.7-13.0 [facility] Comment on above: Performed By: #### C BCDIF, PTT, FIBCT, PT ####[place] [phone] PT Coag (PPP) [Time] 1.0 s Normal 0.9-1.3 [facility] Comment on above: Result Comment: Teri min K Antagonist (VKA) Therapeutic Range: INR 2 to 3 (Target INR of 2.5) Note: For patients treated with VKA drugs, such as warfarin, the [place] [employer] 2012 Guideline recommends [...] Chest 2012, 141:7S-47S Gio KENNY, et al. [facility] 2017, 70: 252-289 Performed By: #### C BCDIF, PTT, FIBCT, PT ####[place] [phone] Performed By: #### C BCDIF, BMP, MG1, PHOS, PTT, PT ####[place] [phone] PT Coag (PPP) [Time] 10.9 s Normal 9.7-13.0 [facility] Comment on above: Performed By: #### C BCDIF, BMP, MG1, PHOS, PTT, PT ####[address] [phone] SURGICAL PATHOLOGYon 020 SURGICAL PATHOLOGY Specimen originated from [facility] Specimen #: [id number] Submitting Physician: RYAN MAY FINAL DIAGNOSIS Left [...] x 1.0 cm. No vessel is seen. Social Service Worker sections are submitted in formalin in one cassette. KVB/sierra 10/14/2019 Gross examination performed at [facility], [address] [place] [address] Date of Report: 10/15/2019 Date of Procedure: 10/10/2019 Date of Receipt: 10/11/2019 Submitted by: RYAN MAY Location: [facility] Diagnostic interpretation performed at [facility], [address] [place] [address]. CLIA Number: [id number] [facility] THERAPY NTon 10-10-2019 THERAPY NT HNO ID: [id number] Author: Shakir NessPtPauline Coello Service: Physical Therapy Author Type: Physical Therapist Type: Therapy (PT/OT/Speech/Resp) Filed: 10/10/2019 1:18 PM Note Text: .PHYSICAL THERAPY MISSED VISIT SERVICE DATE: 10/10/2019 SERVICE TIME: 1317 to 1317 ROOM: [facility] ( OPERATING ROOM) Attempted Treatment. Patient not seen due to Surgery. SIGNATURE: Shakir Coello PT PATIENT NAME: Pedro Pablo Sierra DATE: October 10, 2019 TIME: 1:18 PM [facility] THERAPY NT HNO ID: [id number] Author: Caitlin Thomas Service: Occupational Therapy Author Type: Occupational Therapist Type: Therapy (PT/OT/Speech/Resp) Filed: 10/10/2019 7:37 AM Note Text: OCCUPATIONAL THERAPY MISSED VISIT SERVICE DATE: 10/10/2019 SERVICE TIME: 0736 to 0736 ROOM: [id number] Attempted Treatment. Patient not seen due to Surgery. Pt going back to OR. OT tx on hold today. Will continue to monitor. SIGNATURE: Caitlin Thomas OTR/L PATIENT NAME: Pedro Pablo Sierra DATE: October 10, 2019 TIME: 7:36 AM [facility] XR CHEST 1V FRONTAL PORTon [...] airspace opacities, which may relate to atelectasis. [employer] Worker: PSCB Transcribe Date/Time: Oct 10 2019 6:59A Dictated by : DULCE BARRON MD This examination was interpreted and the report reviewed and electronically signed by: DULCE BARRON MD on Oct 10 2019 7:00AM EST [id number] [facility] ALLIED HEALTHon 10-09-2019 ALLIED HEALTH HNO ID: [id number] Author: Markell NessAssociate Professor Of Educationedd Alonzo Service: Spiritual Care Author Type: Associate Professor Of Education Type: Allied Health Filed: 10/09/2019 5:11 PM [...] patient's RN who could page the on-call commercial solar sales consultant. ? To contact the Spiritual Care Department: Please call [phone]?or Page the On-Call Associate Professor Of Education at pager [phone].??? Thank you for the opportunity to be of service. SIGNATURE: Chaplain Terry PATIENT NAME: Pedro Pablo Sierra DATE: October 09, 2019 TIME: 5:09 PM PAGER/CONTACT #: [phone] Normal [facility] APTTon 10-09-2019 aPTT Coag (Bld) [Time] 20.8 s Low 23.0-32.4 [facility] Comment on above: Result Comment: Unfr [...] laboratory APTT reagent in use throughout the [facility]. Performed By: #### C BC, BMP, MG1, PHOS, PTT, PT ####[place] [id number] [place], [place] [phone] Basic Metabolic Panlon 10-08 Anion gap [Moles/Vol] 9 mmol/L Normal 9-18 [facility] Comment on above: Performed By: #### C BC, BMP, MG1, PHOS, PTT, PT ####[place] [id number] [place], [place] [phone] Calcium [Mass/Vol] 8.1 mg/dL Low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 0(278)023-417791 [place] [address] 12-13-2024 17:46-0400 Body height 172.[address] Daija Morton MD Work Phone: 5(099)541-545091 [place] [address] 12-13-2024 17:46-0400 Body mass index (BMI) [Ratio] 24.3 kg/m2 Dr. Daija Morton MD Work Phone: 8(590)694-785091 [place] [address] 12-13-2024 17:46-0400 Body weight 72.[address] Daija Morton MD Work Phone: 7(656)966-541791 [place] [address] 12-12-2024 13:57-0400 Body mass index (BMI) [Ratio] 24.05 kg/m2 Anjel Older INFANTRY SENIOR SERGEANT.QUALITY ENGINEER Work Phone: 8(671)046-466851 [place] [address] 12-12-2024 13:57-0400 Body weight 71.76 kg Anjel Older INFANTRY SENIOR SERGEANT.QUALITY ENGINEER Work Phone: 9(024)538-563281 [place] [address] 12-12-2024 13:57-0400 Diastolic blood pressure 83 mm[Hg] Anjel Older INFANTRY SENIOR SERGEANT.QUALITY ENGINEER Work Phone: [facility] 12-12-2024 13:57-0400 Heart rate 65 /min Anjel Older INFANTRY SENIOR SERGEANT.QUALITY ENGINEER Work Phone: [facility] 12-12-2024 13:57-0400 Respiratory rate 20 /min Anjel Older INFANTRY SENIOR SERGEANT.QUALITY ENGINEER Work Phone: [facility] 12-12-2024 13:57-0400 SaO2% (BldA) [Mass fraction] 94 % Anjel Older INFANTRY SENIOR SERGEANT.QUALITY ENGINEER Work Phone: [facility] 12-12-2024 13:57-0400 Systolic blood pressure 185 mm[Hg] Anjel Older INFANTRY SENIOR SERGEANT.QUALITY ENGINEER Work Phone: [facility] 09-02-2024 20:48-0400 Heart rate 62 /min Dr. Daija Morton MD Work Phone: [facility] 09-02-2024 19:34-0400 Body temperature 97.5 [degF] Dr. Daija Morton MD Work Phone: [facility] 09-02-2024 19:34-0400 Diastolic blood pressure 77 mm[Hg] Dr. Daija Morton MD Work Phone: [facility] 09-02-2024 19:34-0400 Respiratory rate 16 /min Dr. Daija Morton MD Work Phone: [facility] 09-02-2024 19:34-0400 SaO2% (BldA) [Mass fraction] 92 % Dr. Daija Morton MD Work Phone: [facility] 09-02-2024 19:34-0400 Systolic blood pressure 146 mm[Hg] Dr. Daija Morton MD Work Phone: [facility] 09-02-2024 10:22-0400 Body height 172.[address] Daija Morton MD Work Phone: [facility] 09-02-2024 10:22-0400 Body weight 68.[address] Daija Morton MD Work Phone: 6(286)007-601391 [place] [address] 09-02-2024 06:00-0400 Body mass index (BMI) [Ratio] 22.8 kg/m2 Dr. Daija Morton MD Work Phone: 5(615)551-861791 [place] [address] 09-01-2024 22:41-0400 Inhaled oxygen flow rate 2 L/min Dr. Daija Morton MD Work Phone: 0(676)568-873091 [place] [address] 08-25-2024 18:11-0400 Diastolic blood pressure 90 mm[Hg] Dr. Daija Morton MD Work Phone: 6(211)557-387491 [place] [address] 08-25-2024 18:11-0400 Heart rate 66 /min Dr. Daija Morton MD Work Phone: 1(091)320-258291 [place] [address] 08-25-2024 18:11-0400 Respiratory rate 24 /min Dr. Daija Morton MD Work Phone: 5(626)983-980691 [place] [address] 08-25-2024 18:11-0400 SaO2% (BldA) [Mass fraction] 93 % Dr. Daija Morton MD Work Phone: 3(165)758-932491 [place] [address] 08-25-2024 18:11-0400 Systolic blood pressure 197 mm[Hg] Dr. Daija Morton MD Work Phone: 0(240)633-327891 [place] [address] 08-25-2024 16:12-0400 Body height 165.[address] Daija Morton MD Work Phone: 2(846)121-208091 [place] [address] 08-25-2024 16:12-0400 Body temperature 97.7 [degF] Dr. Daija Morton MD Work Phone: 3(349)818-562591 [place] [address] 03-23-2024 13:19-0400 Diastolic blood pressure 98 mm[Hg] Pura Carter APRN.QUALITY ENGINEER Work Phone: 6(072)823-221651 [place] [address] 03-23-2024 13:19-0400 Systolic blood pressure 230 mm[Hg] Pura Carter APRN.QUALITY ENGINEER Work Phone: 2(290)454-274451 [place] [address] 03-23-2024 13:12-0400 Body mass index (BMI) [Ratio] 20.92 kg/m2 Pura Praisler-Wood INFANTRY SENIOR SERGEANT.QUALITY ENGINEER Work Phone: [facility] 03-23-2024 13:12-0400 Body temperature 96.91 [degF] Pura Praisler-Wood INFANTRY SENIOR SERGEANT.QUALITY ENGINEER Work Phone: [facility] 03-23-2024 13:12-0400 Body weight 62.4 kg Pura Praisler-Wood INFANTRY SENIOR SERGEANT.QUALITY ENGINEER Work Phone: [facility] 03-23-2024 13:12-0400 Heart rate 74 /min Pura Praisler-Wood INFANTRY SENIOR SERGEANT.QUALITY ENGINEER Work Phone: [facility] 03-23-2024 13:12-0400 Respiratory rate 16 /min Pura Praisler-Wood INFANTRY SENIOR SERGEANT.QUALITY ENGINEER Work Phone: [facility] 11-21-2023 12:49-0400 Diastolic blood pressure 94 mm[Hg] Rebekah Bogner PA-C Work Phone: [facility] 11-21-2023 12:49-0400 Systolic blood pressure 200 mm[Hg] Rebekah Bogner PA-C Work Phone: [facility] 11-21-2023 12:42-0400 Body mass index (BMI) [Ratio] 22.96 kg/m2 Rebekah Bogner PA-C Work Phone: [facility] 11-21-2023 12:42-0400 Body weight 68.49 kg Rebekah Bogner PA-C Work Phone: [facility] 11-21-2023 12:42-0400 Heart rate 60 /min Rebekah Bogner PA-C Work Phone: [facility] 11-21-2023 12:42-0400 Respiratory rate 16 /min Rebekah Bogner PA-C Work Phone: [facility] 11-21-2023 12:42-0400 SaO2% (BldA) [Mass fraction] 92 % Rebekah Bogner PA-C Work Phone: [facility] 08-02-2023 19:35-0500 Inhaled oxygen flow rate 2 L/min Dr. Daija Morton Work Phone: 2(004)157-639053 [place] [address] 08-02-2023 19:27-0500 Body temperature 97.9 [degF] Dr. Daija Morton Work Phone: 8(312)460-240891 [place] [address] 08-02-2023 19:27-0500 Diastolic blood pressure 59 mm[Hg] Dr. Daija Morton Work Phone: 0(740)557-403091 [place] [address] 08-02-2023 19:27-0500 Heart rate 98 /min Dr. Daija Morton Work Phone: 1(032)665-317191 [place] [address] 08-02-2023 19:27-0500 Respiratory rate 16 /min Dr. Daija Morton Work Phone: 7(038)236-745391 [place] [address] 08-02-2023 19:27-0500 SaO2% (BldA) [Mass fraction] 93 % Dr. Daija Morton Work Phone: 6(767)835-412791 [place] [address] 08-02-2023 19:27-0500 Systolic blood pressure 149 mm[Hg] Dr. Daija Morton Work Phone: 6(147)948-254791 [place] [address] 07-31-2023 10:17-0500 Body height 172.[address] Daija Morton Work Phone: 8(191)117-359791 [place] [address] 07-31-2023 10:17-0500 Body weight 67.[address] Daija Morton Work Phone: 9(381)139-562891 [place] [address] 07-31-2023 00:57-0500 Body mass index (BMI) [Ratio] 22.4 kg/m2 Dr. Daija Morton Work Phone: 4(293)957-366891 [place] [address] 07-31-2023 00:05-0500 Body temperature 99 [degF] Dr. Daija Morton Work Phone: 9(658)126-461891 [place] [address] 07-31-2023 00:05-0500 Diastolic blood pressure 107 mm[Hg] Dr. Daija Morton Work Phone: 5(539)514-593853 [place] [address] 07-31-2023 00:05-0500 Heart rate 107 /min Dr. Daija Morton Work Phone: 5(417)275-322891 [place] [address] 07-31-2023 00:05-0500 Respiratory rate 30 /min Dr. Daija Morton Work Phone: 7(353)368-248891 [place] [address] 07-31-2023 00:05-0500 SaO2% (BldA) [Mass fraction] 98 % Dr. Daija Morton Work Phone: 7(968)385-058591 [place] [address] 07-31-2023 00:05-0500 Systolic blood pressure 173 mm[Hg] Dr. Daija Morton Work Phone: 4(119)313-420791 [place] [address] 07-30-2023 23:25-0500 Inhaled oxygen flow rate 3 L/min Dr. Daija Morton Work Phone: 3(627)653-594891 [place] [address] 07-30-2023 20:30-0500 Body height 172.[address] Daija Morton Work Phone: 3(815)636-073491 [place] [address] 07-30-2023 20:30-0500 Body mass index (BMI) [Ratio] 24.2 kg/m2 Dr. Daija Morton Work Phone: 2(736)805-262891 [place] [address] 07-30-2023 20:30-0500 Body weight 72.[address] Daija Morton Work Phone: 4(839)256-743291 [place] [address] 07-26-2023 12:10-0500 Diastolic blood pressure 59 mm[Hg] Dr. Daija Morton Work Phone: 5(505)482-884691 [place] [address] 07-26-2023 12:10-0500 Heart rate 67 /min Dr. Daija Morton Work Phone: 0(378)053-737791 [place] [address] 07-26-2023 12:10-0500 Respiratory rate 18 /min Dr. Daija Morton Work Phone: 3(496)382-555291 [place] [address] 07-26-2023 12:10-0500 SaO2% (BldA) [Mass fraction] 90 % Dr. Daija Morton Work Phone: 3(611)051-171891 [place] [address] 07-26-2023 12:10-0500 Systolic blood pressure 107 mm[Hg] Dr. Daija Morton Work Phone: 5(639)574-576291 [place] [address] 07-26-2023 08:38-0500 Body temperature 97.8 [degF] Dr. Daija Morton Work Phone: 6(492)168-581691 [place] [address] 07-26-2023 06:59-0500 Inhaled oxygen flow rate 2 L/min Dr. Daija Morton Work Phone: 2(750)113-771191 [place] [address] 07-25-2023 16:00-0500 Body weight 51.[address] Daija Morton Work Phone: 2(888)874-293991 [place] [address] 07-24-2023 21:55-0500 Body mass index (BMI) [Ratio] 17.4 kg/m2 Dr. Daija Morton Work Phone: 2(736)761-682691 [place] [address] 07-24-2023 21:13-0500 Diastolic blood pressure 89 mm[Hg] Dr. Daija Morton Work Phone: 5(313)262-627891 [place] [address] 07-24-2023 21:13-0500 Heart rate 65 /min Dr. Daija Morton Work Phone: 2(304)472-727791 [place] [address] 07-24-2023 21:13-0500 Respiratory rate 16 /min Dr. Daija Morton Work Phone: 5(857)057-408491 [place] [address] 07-24-2023 21:13-0500 SaO2% (BldA) [Mass fraction] 91 % Dr. Daija Morton Work Phone: 4(815)564-797291 [place] [address] 07-24-2023 21:13-0500 Systolic blood pressure 210 mm[Hg] Dr. Daija Morton Work Phone: 3(870)553-582691 [place] [address] 07-24-2023 17:27-0500 Body mass index (BMI) [Ratio] 22.8 kg/m2 Dr. Daija Morton Work Phone: 9(063)163-623791 [place] [address] 07-24-2023 17:27-0500 Body weight [address] Daija Morton Work Phone: 6(489)057-960391 [place] [address] 07-24-2023 16:44-0500 Body height 172.[address] Daija Morton Work Phone: 3(359)831-989891 [place] [address] 07-24-2023 16:44-0500 Body temperature 96.7 [degF] Dr. Daija Morton Work Phone: 9(369)119-234391 [place] [address] 04-04-2023 11:37-0400 Diastolic blood pressure 79 mm[Hg] Dr. Daija Morton Work Phone: 0(131)395-351091 [place] [address] 04-04-2023 11:37-0400 Heart rate 44 /min Dr. Daija Morton Work Phone: 9(076)317-636291 [place] [address] 04-04-2023 11:37-0400 Systolic blood pressure 188 mm[Hg] Dr. Daija Morton Work Phone: 6(176)970-993291 [place] [address] 04-04-2023 10:02-0400 Body temperature 97.6 [degF] Dr. Daija Morton Work Phone: 0(607)724-537091 [place] [address] 04-04-2023 10:02-0400 Respiratory rate 18 /min Dr. Daija Morton Work Phone: 0(379)224-181191 [place] [address] 04-04-2023 10:02-0400 SaO2% (BldA) [Mass fraction] 92 % Dr. Daija Morton Work Phone: 7(714)987-487591 [place] [address] 04-03-2023 15:53-0400 Inhaled oxygen flow rate 2 L/min Dr. Daija Morton Work Phone: 3(648)906-666353 [place] [address] 03-31-2023 14:20-0400 Body mass index (BMI) [Ratio] 20.5 kg/m2 Dr. Daija Morton Work Phone: 0(984)122-955853 [place] [address] 03-31-2023 14:20-0400 Body weight [address] Daija Morton Work Phone: 9(604)657-981491 [place] [address] 03-31-2023 09:57-0400 Body height 175.[address] Daija Morton Work Phone: 5(454)008-013091 [place] [address] 03-30-2023 20:26-0400 Body temperature 96.7 [degF] Dr. Daija Morton Work Phone: 9(959)595-157191 [place] [address] 03-30-2023 20:26-0400 Diastolic blood pressure 78 mm[Hg] Dr. Daija Morton Work Phone: 2(749)744-629791 [place] [address] 03-30-2023 20:26-0400 Heart rate 71 /min Dr. Daija Morton Work Phone: 7(562)364-158491 [place] [address] 03-30-2023 20:26-0400 Respiratory rate 18 /min Dr. Daija Morton Work Phone: 5(038)080-507891 [place] [address] 03-30-2023 20:26-0400 SaO2% (BldA) [Mass fraction] 97 % Dr. Daija Morton Work Phone: 3(099)015-644491 [place] [address] 03-30-2023 20:26-0400 Systolic blood pressure 181 mm[Hg] Dr. Daija Morton Work Phone: 8(057)112-890191 [place] [address] 03-30-2023 14:10-0400 Body height 172.[address] Daija Morton Work Phone: 9(217)710-892891 [place] [address] 03-29-2023 19:22-0400 Body mass index (BMI) [Ratio] 21.9 kg/m2 Dr. Daija Morton Work Phone: 1(561)876-112191 [place] [address] 03-29-2023 19:22-0400 Body weight 65.[address] Daija Morton Work Phone: 2(626)136-493691 [place] [address] 03-29-2023 19:20-0400 Diastolic blood pressure 80 mm[Hg] Dr. Daija Morton Work Phone: 7(782)810-433791 [place] [address] 03-29-2023 19:20-0400 Heart rate 84 /min Dr. Daija Morton Work Phone: 0(986)717-850091 [place] [address] 03-29-2023 19:20-0400 Respiratory rate 18 /min Dr. Daija Morton Work Phone: 8(920)977-958691 [place] [address] 03-29-2023 19:20-0400 SaO2% (BldA) [Mass fraction] 92 % Dr. Daija Morton Work Phone: 0(266)901-351453 [place] [address] 03-29-2023 19:20-0400 Systolic blood pressure 195 mm[Hg] Dr. Daija Morton Work Phone: 5(787)067-463191 [place] [address] 03-29-2023 18:17-0400 Body temperature 97.6 [degF] Dr. Daija Morton Work Phone: 9(469)722-297191 [place] [address] 02-25-2023 19:41-0400 Diastolic blood pressure 87 mm[Hg] Dr. Daija Morton Work Phone: 2(044)942-113091 [place] [address] 02-25-2023 19:41-0400 Heart rate 67 /min Dr. Daija Morton Work Phone: 0(947)627-248791 [place] [address] 02-25-2023 19:41-0400 Respiratory rate 15 /min Dr. Daija Morton Work Phone: 3(682)684-034491 [place] [address] 02-25-2023 19:41-0400 SaO2% (BldA) [Mass fraction] 97 % Dr. Daija Morton Work Phone: 0(530)066-385691 [place] [address] 02-25-2023 19:41-0400 Systolic blood pressure 193 mm[Hg] Dr. Daija Morton Work Phone: 8(613)588-877891 [place] [address] 02-25-2023 19:37-0400 Body mass index (BMI) [Ratio] 22.4 kg/m2 Dr. Daija Morton Work Phone: 1(397)024-183391 [place] [address] 02-25-2023 19:37-0400 Body weight 67.[address] Daija Morton Work Phone: 5(542)957-599891 [place] [address] 02-25-2023 17:22-0400 Body temperature 97 [degF] Dr. Daija Morton Work Phone: 6(399)977-831591 [place] [address] 02-18-2023 01:56-0400 Diastolic blood pressure 113 mm[Hg] [facility] 02-18-2023 01:56-0400 Heart rate 88 /min [facility] 02-18-2023 01:56-0400 Respiratory rate 16 /min [facility] 02-18-2023 01:56-0400 Systolic blood pressure 157 mm[Hg] [facility] 02-18-2023 01:00-0400 SaO2% (BldA) [Mass fraction] 98 % [facility] 02-17-2023 21:35-0400 Body mass index (BMI) [Ratio] 21.5 kg/m2 [facility] 02-17-2023 21:35-0400 Body weight 66.13 kg [facility] 02-17-2023 21:32-0400 Body height 175.26 cm [facility] 02-17-2023 21:32-0400 Body temperature 96.4 [degF] [facility] 12-31-2022 15:16-0400 Body height 173 cm [facility] 12-31-2022 15:16-0400 Body mass index (BMI) [Ratio] 21.7 kg/m2 [facility] 12-31-2022 15:16-0400 Body temperature 96.6 [degF] [facility] 12-31-2022 15:16-0400 Body weight 65.2 kg [facility] 12-31-2022 15:16-0400 Diastolic blood pressure 66 mm[Hg] [facility] 12-31-2022 15:16-0400 Heart rate 75 /min [facility] 12-31-2022 15:16-0400 Respiratory rate 15 /min [facility] 12-31-2022 15:16-0400 SaO2% (BldA) [Mass fraction] 93 % [facility] 12-31-2022 15:16-0400 Systolic blood pressure 118 mm[Hg] [facility] 12-26-2022 14:04-0400 Diastolic blood pressure 90 mm[Hg] Ryan May MD Work Phone: [facility] 12-26-2022 14:04-0400 Heart rate 50 /min Ryan May MD Work Phone: [facility] 12-26-2022 14:04-0400 Systolic blood pressure 207 mm[Hg] Ryan May MD Work Phone: [facility] 10-22-2022 21:40-0400 Diastolic Blood Pressure Non-Invasive [address] PRIYANKA FRANCO MD [facility] 10-22-2022 21:40-0400 Heart rate 88 /min DR PRIYANKA FRANCO MD [facility] 10-22-2022 21:40-0400 Respiratory rate 20 /min DR PRIYANKA FRANCO MD [facility] 10-22-2022 21:40-0400 Systolic Blood Pressure Non-Invasive [address] PRIYANKA FRANCO MD [facility] 10-22-2022 19:59-[address] PRIYANKA FRANCO MD [facility] 10-22-2022 19:59-0400 Body temperature 98.6 [degF] DR PRIYANKA FRANCO MD [facility] 10-22-2022 19:59-0400 Diastolic Blood Pressure Non-Invasive [address] PRIYANKA FRANCO MD [facility] 10-22-2022 19:59-0400 Heart rate 97 /min DR PRIYANKA FRANCO MD [facility] 10-22-2022 19:59-0400 Respiratory rate 21 /min DR PRIYANKA FRANCO MD [facility] 10-22-2022 19:59-0400 Systolic Blood Pressure Non-Invasive [address] PRIYANKA FRANCO MD [facility] 10-21-2022 18:30-0400 Body height 172.72 cm [facility] 10-21-2022 18:30-0400 Body temperature 97.5 [degF] [facility] 10-21-2022 18:30-0400 Diastolic blood pressure 88 mm[Hg] [facility] 10-21-2022 18:30-0400 Heart rate 99 /min [facility] 10-21-2022 18:30-0400 Respiratory rate 16 /min [facility] 10-21-2022 18:30-0400 SaO2% (BldA) [Mass fraction] 96 % [facility] 10-21-2022 18:30-0400 Systolic blood pressure 168 mm[Hg] [facility] 08-27-2022 10:51-0500 Diastolic blood pressure 91 mm[Hg] Daija Morton MD Work Phone: [facility] 08-27-2022 10:51-0500 Heart rate 69 /min Daija Morton MD Work Phone: [facility] 08-27-2022 10:51-0500 Systolic blood pressure 212 mm[Hg] Daija Morton MD Work Phone: [facility] 08-27-2022 10:47-0500 Body temperature 97 [degF] Daija Morton MD Work Phone: [facility] 08-27-2022 10:47-0500 Body weight 71.22 kg Daija Morton MD Work Phone: [facility] 08-27-2022 10:47-0500 Respiratory rate 28 /min Daija Morton MD Work Phone: [facility] 08-27-2022 10:47-0500 SaO2% (BldA) [Mass fraction] 95 % Daija Morton MD Work Phone: [facility] 03-10-2022 10:10-0400 Diastolic blood pressure 90 mm[Hg] Anjel Older INFANTRY SENIOR SERGEANT.QUALITY ENGINEER Work Phone: [facility] 03-10-2022 10:10-0400 Heart rate 88 /min Anjel Older INFANTRY SENIOR SERGEANT.QUALITY ENGINEER Work Phone: [facility] 03-10-2022 10:10-0400 Respiratory rate 16 /min Anjel Older INFANTRY SENIOR SERGEANT.QUALITY ENGINEER Work Phone: [facility] 03-10-2022 10:10-0400 Systolic blood pressure 158 mm[Hg] Anjel Braga APRN.CNP Work Phone: [facility] 03-08-2022 23:13-0400 Diastolic blood pressure 93 mm[Hg] Dr. Daija Morton Work Phone: [facility] Work Phone: 03-08-2022 23:13-0400 Heart rate 71 /min Dr. Daija Morton Work Phone[facility] [facility] Work Phone: 03-08-2022 23:13-0400 Inhaled oxygen flow rate 3 L/min Dr. Daija Morton Work Phone: [facility] Work Phone: 03-08-2022 23:13-0400 Respiratory rate 16 /min Dr. Daija Morton Work Phone: [facility] Work Phone: 03-08-2022 23:13-0400 SaO2% (BldA) [Mass fraction] 96 % Dr. Daija Morton Work Phone: [facility] Work Phone: 03-08-2022 23:13-0400 Systolic blood pressure 178 mm[Hg] Dr. Daija Morton Work Phone: [facility] Work Phone: 03-08-2022 17:31-0400 Body height 172.[address] Daija Morton Work Phone: [facility] Work Phone: 03-08-2022 17:31-0400 Body mass index (BMI) [Ratio] 20.5 kg/m2 Dr. Daija Morton Work Phone: [facility] Work Phone: 03-08-2022 17:31-0400 Body temperature 97.6 [degF] Dr. Daija Motron Work Phone: [facility] Work Phone: 03-08-2022 17:31-0400 Body weight 61.[address] Daija Morton Work Phone: [facility] Work Phone: 03-07-2022 17:28-0400 Respiratory rate 18 /min Dr. Daija Morton Work Phone: [facility] Work Phone: 03-07-2022 15:23-0400 Body height 172.[address] Daija Morton Work Phone: [facility] Work Phone: 03-07-2022 15:23-0400 Body mass index (BMI) [Ratio] 20.5 kg/m2 Dr. Daija Morton Work Phone: [facility] Work Phone: 03-07-2022 15:23-0400 Body temperature 97.4 [degF] Dr. Daija Morton Work Phone: [facility] Work Phone: 03-07-2022 15:23-0400 Body weight 61.[address] Daija Morton Work Phone: [facility] Work Phone: 03-07-2022 15:23-0400 Diastolic blood pressure 88 mm[Hg] Dr. Daija Morton Work Phone: [facility] Work Phone: 03-07-2022 15:23-0400 Heart rate 84 /min Dr. Daija Morton Work Phone: [facility] Work Phone: 03-07-2022 15:23-0400 SaO2% (BldA) [Mass fraction] 93 % Dr. Daija Morton Work Phone: [facility] Work Phone: 03-07-2022 15:23-0400 Systolic blood pressure 193 mm[Hg] Dr. Daija Morton Work Phone: [facility] Work Phone: 03-02-2022 19:05-0400 Diastolic blood pressure 81 mm[Hg] Dr. Daija Morton Work Phone: [facility] Work Phone: 03-02-2022 19:05-0400 Heart rate 56 /min Dr. Daija Morton Work Phone: [facility] Work Phone: 03-02-2022 19:05-0400 Respiratory rate 18 /min Dr. Daija Morton Work Phone: [facility] Work Phone: 03-02-2022 19:05-0400 SaO2% (BldA) [Mass fraction] 92 % Dr. Daija Morton Work Phone: [facility] Work Phone: 03-02-2022 19:05-0400 Systolic blood pressure 209 mm[Hg] Dr. Daija Morton Work Phone: [facility] Work Phone: 03-02-2022 17:41-0400 Body temperature 97.5 [degF] Dr. Daija Morton Work Phone: [facility] Work Phone: 03-02-2022 15:10-0400 Body height 172.[address] Daija Morton Work Phone: [facility] Work Phone: 03-02-2022 15:10-0400 Body mass index (BMI) [Ratio] 23.5 kg/m2 Dr. Daija Morton Work Phone: [facility] Work Phone: 03-02-2022 15:10-0400 Body weight 70.[address] Daija Morton Work Phone: [facility] Work Phone: 01-31-2022 13:59-0400 Body height 172.7 cm Ryan May MD Work Phone: [facility] 01-31-2022 13:59-0400 Body weight 68.49 kg Ryan May MD Work Phone: [facility] 01-31-2022 13:59-0400 Diastolic blood pressure 99 mm[Hg] Ryan May MD Work Phone: [facility] 01-31-2022 13:59-0400 Systolic blood pressure 168 mm[Hg] Ryan May MD Work Phone: [facility] 01-28-2022 15:53-0400 Diastolic blood pressure 88 mm[Hg] Dr. Daija Morton Work Phone: [facility] Work Phone: 01-28-2022 15:53-0400 Heart rate 54 /min Dr. Daija Morton Work Phone: [facility] Work Phone: 01-28-2022 15:53-0400 Respiratory rate 20 /min Dr. Daija Morton Work Phone: [facility] Work Phone: 01-28-2022 15:53-0400 SaO2% (BldA) [Mass fraction] 97 % Dr. Daija Morton Work Phone: [facility] Work Phone: 01-28-2022 15:53-0400 Systolic blood pressure 200 mm[Hg] Dr. Daija Morton Work Phone: [facility] Work Phone: 01-28-2022 14:03-0400 Body height 172.[address] Daija Morton Work Phone: [facility] Work Phone: 01-28-2022 14:03-0400 Body mass index (BMI) [Ratio] 22.9 kg/m2 Dr. Daija Morton Work Phone: [facility] Work Phone: 01-28-2022 14:03-0400 Body temperature 96.8 [degF] Dr. Daija Morton Work Phone: [facility] Work Phone: 01-28-2022 14:03-0400 Body weight 68.[address] Daija Morton Work Phone: [facility] Work Phone: 01-28-2022 11:41-0400 Diastolic blood pressure 92 mm[Hg] Anjel Older INFANTRY SENIOR SERGEANT.QUALITY ENGINEER Work Phone: [facility] 01-28-2022 11:41-0400 Heart rate 56 /min Anjel Older INFANTRY SENIOR SERGEANT.QUALITY ENGINEER Work Phone: [facility] 01-28-2022 11:41-0400 Systolic blood pressure 200 mm[Hg] Anjel Older INFANTRY SENIOR SERGEANT.QUALITY ENGINEER Work Phone: [facility] 01-28-2022 10:57-0400 Body weight 68.49 kg Anjel Older INFANTRY SENIOR SERGEANT.QUALITY ENGINEER Work Phone: [facility] 01-28-2022 10:57-0400 Respiratory rate 16 /min Anjel Older INFANTRY SENIOR SERGEANT.QUALITY ENGINEER Work Phone: [facility] 01-20-2022 13:23-0400 Diastolic blood pressure 102 mm[Hg] Ye Coello MD Work Phone: [facility] 01-20-2022 13:23-0400 Heart rate 61 /min Ye Coello MD Work Phone: [facility] 01-20-2022 13:23-0400 SaO2% (BldA) [Mass fraction] 94 % Ye Coello MD Work Phone: [facility] 01-20-2022 13:23-0400 Systolic blood pressure 172 mm[Hg] Ye Coello MD Work Phone: [facility] 01-14-2022 10:26-0400 Body temperature 98.2 [degF] Harriett Burts INFANTRY SENIOR SERGEANT.ELECTRICIAN YARD Work Phone: [facility] 01-14-2022 10:26-0400 Body weight 69.67 kg Harriett Burts INFANTRY SENIOR SERGEANT.ELECTRICIAN YARD Work Phone: [facility] 01-14-2022 10:26-0400 Diastolic blood pressure 80 mm[Hg] Harriett Albert INFANTRY SENIOR SERGEANT.ELECTRICIAN YARD Work Phone: [facility] 01-14-2022 10:26-0400 Heart rate 78 /min Harriett Albert INFANTRY SENIOR SERGEANT.ELECTRICIAN YARD Work Phone: [facility] 01-14-2022 10:26-0400 Respiratory rate 16 /min Harriett Albert INFANTRY SENIOR SERGEANT.ELECTRICIAN YARD Work Phone: [facility] 01-14-2022 10:26-0400 SaO2% (BldA) [Mass fraction] 95 % Harriett Burts INFANTRY SENIOR SERGEANT.ELECTRICIAN YARD Work Phone: [facility] 01-14-2022 10:26-0400 Systolic blood pressure 186 mm[Hg] Harriett Burts INFANTRY SENIOR SERGEANT.ELECTRICIAN YARD Work Phone: [facility] 11-30-2021 15:02-0400 Heart rate 75 /min Dr. Daija Morton Work Phone: [facility] Work Phone: 11-30-2021 15:02-0400 Respiratory rate 17 /min Dr. Daija Morton Work Phone: [facility] Work Phone: 11-30-2021 13:57-0400 Body temperature 97.4 [degF] Dr. Daija Morton Work Phone: [facility] Work Phone: 11-30-2021 13:57-0400 Diastolic blood pressure 67 mm[Hg] Dr. Daija Morton Work Phone: [facility] Work Phone: 11-30-2021 13:57-0400 SaO2% (BldA) [Mass fraction] 93 % Dr. Daija Morton Work Phone: [facility] Work Phone: 11-30-2021 13:57-0400 Systolic blood pressure 161 mm[Hg] Dr. Daija Morton Work Phone: [facility] Work Phone: 11-30-2021 11:25-0400 Inhaled oxygen flow rate 3 L/min Dr. Daija Morton Work Phone: [facility] Work Phone: 11-29-2021 12:48-0400 Body height 172.[address] Daija Morton Work Phone: [facility] Work Phone: 11-29-2021 12:48-0400 Body weight 71.[address] Daija Morton Work Phone: [facility] Work Phone: 11-27-2021 05:25-0400 Body mass index (BMI) [Ratio] 24 kg/m2 Dr. Daija Morton Work Phone: [facility] Work Phone: 11-25-2021 21:36-0400 Body temperature 97.8 [degF] Dr. Daija Morton Work Phone: [facility] Work Phone: 11-25-2021 21:36-0400 Diastolic blood pressure 40 mm[Hg] Dr. Daija Morton Work Phone: [facility] Work Phone: 11-25-2021 21:36-0400 Heart rate 66 /min Dr. Daija Morton Work Phone: [facility] Work Phone: 11-25-2021 21:36-0400 Respiratory rate 16 /min Dr. Daija Morton Work Phone: [facility] Work Phone: 11-25-2021 21:36-0400 SaO2% (BldA) [Mass fraction] 96 % Dr. Daija Morton Work Phone: [facility] Work Phone: 11-25-2021 21:36-0400 Systolic blood pressure 133 mm[Hg] Dr. Daija Morton Work Phone: [facility] Work Phone: 11-25-2021 17:29-0400 Body height 172.[address] Daija Morton Work Phone: [facility] Work Phone: 11-25-2021 17:29-0400 Body mass index (BMI) [Ratio] 24.7 kg/m2 Dr. Daija Morton Work Phone: [facility] Work Phone: 11-25-2021 17:29-0400 Body weight 73.[address] Daija Morton Work Phone: [facility] Work Phone: 11-16-2021 14:37-0400 Body height 172.7 cm Estephania Pierre APRN.QUALITY ENGINEER Work Phone: [facility] 11-16-2021 14:37-0400 Body weight 71.67 kg Estephania Pierre APRN.QUALITY ENGINEER Work Phone: [facility] 11-16-2021 14:37-0400 Diastolic blood pressure 68 mm[Hg] Estephania Pierre APRN.QUALITY ENGINEER Work Phone: [facility] 11-16-2021 14:37-0400 Heart rate 64 /min Estephania Pierre APRN.QUALITY ENGINEER Work Phone: [facility] 11-16-2021 14:37-0400 SaO2% (BldA) [Mass fraction] 100 % Estephania Pierre APRN.QUALITY ENGINEER Work Phone: [facility] 11-16-2021 14:37-0400 Systolic blood pressure 162 mm[Hg] Estephanialuis Pierre APRN.QUALITY ENGINEER Work Phone: [facility] 11-08-2021 12:50-0400 Heart rate 73 /min Respiratory Wstr Work Phone: [facility] 11-08-2021 12:50-0400 Respiratory rate 14 /min Respiratory Wstr Work Phone: [facility] 11-08-2021 12:50-0400 SaO2% (BldA) [Mass fraction] 97 % Respiratory Wstr Work Phone: [facility] 11-05-2021 11:22-0400 Body weight 70.31 kg Emilie Shania PA-C Work Phone: [facility] 11-05-2021 11:22-0400 Diastolic blood pressure 68 mm[Hg] Emilie Shania PA-C Work Phone: [facility] 11-05-2021 11:22-0400 Heart rate 71 /min Emilie Shania PA-C Work Phone: [facility] 11-05-2021 11:22-0400 Respiratory rate 20 /min Emilie Shania PA-C Work Phone: [facility] 11-05-2021 11:22-0400 SaO2% (BldA) [Mass fraction] 99 % Emilie Shania PA-C Work Phone: [facility] 11-05-2021 11:22-0400 Systolic blood pressure 140 mm[Hg] Emilie Shania PA-C Work Phone: [facility] 10-21-2021 11:30-0400 Diastolic blood pressure 65 mm[Hg] Mi Nurse Work Phone: [facility] 10-21-2021 11:30-0400 Heart rate 81 /min Mi Nurse Work Phone: [facility] 10-21-2021 11:30-0400 Systolic blood pressure 155 mm[Hg] Mi Nurse Work Phone: [facility] 10-13-2021 13:00-0400 Body height 172.7 cm Ye Coello MD Work Phone: [facility] 10-13-2021 13:00-0400 Body weight 71.67 kg Ye Coello MD Work Phone: [facility] 10-13-2021 13:00-0400 Diastolic blood pressure 93 mm[Hg] Ye Coello MD Work Phone: [facility] 10-13-2021 13:00-0400 Heart rate 66 /min Ye Coello MD Work Phone: [facility] 10-13-2021 13:00-0400 Systolic blood pressure 217 mm[Hg] Ye Coello MD Work Phone: [facility] 10-08-2021 17:14-0400 Diastolic blood pressure 62 mm[Hg] Dr. Daija Morton Work Phone: [facility] Work Phone: 10-08-2021 17:14-0400 Heart rate 58 /min Dr. Daija Morton Work Phone: [facility] Work Phone: 10-08-2021 17:14-0400 Respiratory rate 18 /min Dr. Daija Morton Work Phone: [facility] Work Phone: 10-08-2021 17:14-0400 SaO2% (BldA) [Mass fraction] 98 % Dr. Daija Morton Work Phone: [facility] Work Phone: 10-08-2021 17:14-0400 Systolic blood pressure 149 mm[Hg] Dr. Daija Morton Work Phone: [facility] Work Phone: 10-08-2021 14:12-0400 Body height 172.[address] Daija Morton Work Phone: [facility] Work Phone: 10-08-2021 14:12-0400 Body mass index (BMI) [Ratio] 24.7 kg/m2 Dr. Daija Morton Work Phone: [facility] Work Phone: 10-08-2021 14:12-0400 Body temperature 98.1 [degF] Dr. Daija Morton Work Phone: [facility] Work Phone: 10-08-2021 14:12-0400 Body weight 73.[address] Daija Morton Work Phone: [facility] Work Phone: 10-07-2021 11:17-0400 Body temperature 97.59 [degF] Anjel Older INFANTRY SENIOR SERGEANT.QUALITY ENGINEER Work Phone: [facility] 10-07-2021 11:17-0400 Body weight 70.31 kg Anjel Older INFANTRY SENIOR SERGEANT.QUALITY ENGINEER Work Phone: [facility] 10-07-2021 11:17-0400 Diastolic blood pressure 90 mm[Hg] Anjel Older INFANTRY SENIOR SERGEANT.QUALITY ENGINEER Work Phone: [facility] 10-07-2021 11:17-0400 Heart rate 67 /min Anjel Older INFANTRY SENIOR SERGEANT.QUALITY ENGINEER Work Phone: [facility] 10-07-2021 11:17-0400 Respiratory rate 12 /min Anjel Older INFANTRY SENIOR SERGEANT.QUALITY ENGINEER Work Phone: [facility] 10-07-2021 11:17-0400 SaO2% (BldA) [Mass fraction] 96 % Anjel Older INFANTRY SENIOR SERGEANT.QUALITY ENGINEER Work Phone: [facility] 10-07-2021 11:17-0400 Systolic blood pressure 178 mm[Hg] Anjel Older INFANTRY SENIOR SERGEANT.QUALITY ENGINEER Work Phone: [facility] 09-29-2021 16:20-0400 Body temperature 98.24 [degF] DR PRIYANKA FRANCO MD [facility] 09-29-2021 16:20-0400 Diastolic blood pressure 91 mm[Hg] DR PRIYANKA FRANCO MD [facility] 09-29-2021 16:20-0400 Heart rate 80 /min DR PRIYANKA FRANCO MD [facility] 09-29-2021 16:20-0400 Respiratory rate 18 /min DR PRIYANKA FRANCO MD [facility] 09-29-2021 16:20-0400 Systolic blood pressure 189 mm[Hg] DR PRIYANKA FRANCO MD [facility] 09-17-2021 20:16-0400 Body temperature 97.3 [degF] Dr. Daija Morton Work Phone: [facility] Work Phone: 09-17-2021 20:16-0400 Diastolic blood pressure 80 mm[Hg] Dr. Daija Morton Work Phone: [facility] Work Phone: 09-17-2021 20:16-0400 Heart rate 85 /min Dr. Daija Morton Work Phone: [facility] Work Phone: 09-17-2021 20:16-0400 Respiratory rate 17 /min Dr. Daija Morton Work Phone: [facility] Work Phone: 09-17-2021 20:16-0400 SaO2% (BldA) [Mass fraction] 96 % Dr. Daija Morton Work Phone: [facility] Work Phone: 09-17-2021 20:16-0400 Systolic blood pressure 171 mm[Hg] Dr. Daija Morton Work Phone: [facility] Work Phone: 09-17-2021 16:56-0400 Body height 172.[address] Daija Morton Work Phone: [facility] Work Phone: 09-17-2021 16:56-0400 Body mass index (BMI) [Ratio] 23.7 kg/m2 Dr. Daija Morton Work Phone: [facility] Work Phone: 09-17-2021 16:56-0400 Body weight 70.[address] Daija Morton Work Phone: [facility] Work Phone: 09-15-2021 17:40-0400 Diastolic blood pressure 73 mm[Hg] Anjel Older INFANTRY SENIOR SERGEANT.QUALITY ENGINEER Work Phone: [facility] 09-15-2021 17:40-0400 Systolic blood pressure 170 mm[Hg] Anjel Older INFANTRY SENIOR SERGEANT.QUALITY ENGINEER Work Phone: [facility] 09-15-2021 16:57-0400 Body weight 71.22 kg Anjel Older INFANTRY SENIOR SERGEANT.QUALITY ENGINEER Work Phone: [facility] 09-15-2021 16:57-0400 Heart rate 68 /min Anjel Older INFANTRY SENIOR SERGEANT.QUALITY ENGINEER Work Phone: [facility] 09-15-2021 16:57-0400 Respiratory rate 16 /min Anjel Older INFANTRY SENIOR SERGEANT.QUALITY ENGINEER Work Phone: [facility] 09-15-2021 16:18-0400 Body height 172.7 cm Kaye Ortega MD Work Phone: [facility] 09-15-2021 16:18-0400 Body temperature 97.39 [degF] Kaye Ortega MD Work Phone: [facility] 09-15-2021 16:18-0400 Body weight 71.67 kg Kaye Ortega MD Work Phone: [facility] 09-15-2021 16:18-0400 Diastolic blood pressure 72 mm[Hg] Kaye Ortega MD Work Phone: [facility] 09-15-2021 16:18-0400 Heart rate 78 /min Kaye Ortega MD Work Phone: [facility] 09-15-2021 16:18-0400 SaO2% (BldA) [Mass fraction] 96 % Kaye Ortega MD Work Phone: [facility] 09-15-2021 16:18-0400 Systolic blood pressure 138 mm[Hg] Kaye Ortega MD Work Phone: [facility] 08-21-2021 09:30-0500 Body temperature 97.6 [degF] Dr. Daija Morton Work Phone: [facility] Work Phone: 08-21-2021 09:30-0500 Diastolic blood pressure 69 mm[Hg] Dr. Daija Morton Work Phone: [facility] Work Phone: 08-21-2021 09:30-0500 Heart rate 61 /min Dr. Daija Morton Work Phone: [facility] Work Phone: 08-21-2021 09:30-0500 Inhaled oxygen flow rate 3 L/min Dr. Daija Morton Work Phone: [facility] Work Phone: 08-21-2021 09:30-0500 Respiratory rate 18 /min Dr. Daija Morton Work Phone: [facility] Work Phone: 08-21-2021 09:30-0500 SaO2% (BldA) [Mass fraction] 98 % Dr. Daija Morton Work Phone: [facility] Work Phone: 08-21-2021 09:30-0500 Systolic blood pressure 183 mm[Hg] Dr. Daija Morton Work Phone: [facility] Work Phone: 08-21-2021 08:30-0500 Body temperature 97.6 [degF] Dr. Daija Morton Work Phone: [facility] Work Phone: 08-21-2021 08:30-0500 Diastolic blood pressure 69 mm[Hg] Dr. Daija Morton Work Phone: [facility] Work Phone: 08-21-2021 08:30-0500 Heart rate 61 /min Dr. Daija Morton Work Phone: [facility] Work Phone: 08-21-2021 08:30-0500 Respiratory rate 18 /min Dr. Daija Morton Work Phone: [facility] Work Phone: 08-21-2021 08:30-0500 SaO2% (BldA) [Mass fraction] 98 % Dr. Daija Morton Work Phone: [facility] Work Phone: 08-21-2021 08:30-0500 Systolic blood pressure 183 mm[Hg] Dr. Daija Morton Work Phone: [facility] Work Phone: 08-20-2021 06:18-0500 Body mass index (BMI) [Ratio] 23.7 kg/m2 Dr. Daija Morton Work Phone: [facility] Work Phone: 08-20-2021 06:18-0500 Body weight [address] Daija Morton Work Phone: [facility] Work Phone: 08-20-2021 05:18-0500 Body mass index (BMI) [Ratio] 23.7 kg/m2 Dr. Daija Morton Work Phone: [facility] Work Phone: 08-20-2021 05:18-0500 Body weight [address] Daija Morton Work Phone: [facility] Work Phone: 08-12-2021 03:26-0500 Diastolic blood pressure 89 mm[Hg] Dr. Diaja Morton Work Phone: [facility] Work Phone: 08-12-2021 03:26-0500 Heart rate 70 /min Dr. Daija Morton Work Phone: [facility] Work Phone: 08-12-2021 03:26-0500 Respiratory rate 18 /min Dr. Daija Morton Work Phone: [facility] Work Phone: 08-12-2021 03:26-0500 SaO2% (BldA) [Mass fraction] 93 % Dr. Daija Morton Work Phone: [facility] Work Phone: 08-12-2021 03:26-0500 Systolic blood pressure 211 mm[Hg] Dr. Daija Morton Work Phone: [facility] Work Phone: 08-11-2021 23:32-0500 Body mass index (BMI) [Ratio] 24.8 kg/m2 Dr. Daija Morton Work Phone: [facility] Work Phone: 08-11-2021 23:32-0500 Body temperature 97.5 [degF] Dr. Daija Morton Work Phone: [facility] Work Phone: 08-11-2021 23:32-0500 Body weight 74.[address] Daija Morton Work Phone: [facility] Work Phone: 06-12-2021 15:55-0500 Diastolic blood pressure 81 mm[Hg] Dr. Daija Morton Work Phone: [facility] Work Phone: 06-12-2021 15:55-0500 Heart rate 61 /min Dr. Daija Morton Work Phone: [facility] Work Phone: 06-12-2021 15:55-0500 Systolic blood pressure 182 mm[Hg] Dr. Daija Morton Work Phone: [facility] Work Phone: 06-12-2021 15:15-0500 Body mass index (BMI) [Ratio] 24.6 kg/m2 Dr. Daija Morton Work Phone: [facility] Work Phone: 06-12-2021 15:15-0500 Body temperature 96.8 [degF] Dr. Daija Morton Work Phone: [facility] Work Phone: 06-12-2021 15:15-0500 Body weight 73.[address] Daija Morton Work Phone: [facility] Work Phone: 06-12-2021 15:15-0500 Respiratory rate 18 /min Dr. Daija Morton Work Phone: [facility] Work Phone: 06-12-2021 15:15-0500 SaO2% (BldA) [Mass fraction] 96 % Dr. Daija Morton Work Phone: [facility] Work Phone: 06-04-2021 23:37-0500 Respiratory rate 18 /min Dr. Daija Morton Work Phone: [facility] Work Phone: 06-04-2021 22:01-0500 Body mass index (BMI) [Ratio] 23.6 kg/m2 Dr. Daija Morton Work Phone: [facility] Work Phone: 06-04-2021 22:01-0500 Body temperature 97.1 [degF] Dr. Daija Morton Work Phone: [facility] Work Phone: 06-04-2021 22:01-0500 Body weight 70.[address] Daija Morton Work Phone: [facility] Work Phone: 06-04-2021 22:01-0500 Diastolic blood pressure 99 mm[Hg] Dr. Daija Morton Work Phone: [facility] Work Phone: 06-04-2021 22:01-0500 Heart rate 87 /min Dr. Daija Morton Work Phone: [facility] Work Phone: 06-04-2021 22:01-0500 SaO2% (BldA) [Mass fraction] 97 % Dr. Daija Morton Work Phone: [facility] Work Phone: 06-04-2021 22:01-0500 Systolic blood pressure 202 mm[Hg] Dr. Daija Morton Work Phone: [facility] Work Phone: Encounters Encounter Date Encounter Type Care Provider Facility Start: 01-03-2025 End: 01-03-2025 Emergency department patient visit Dr. Daija Morton MD Work Phone: -Emergency Department Start: 01-03-2025 End: 01-03-2025 Dr. Daija Morton MD Work Phone: -Emergency Department Work Phone: Start: 12-31-2024 ambulatory Lorraine RAIN Fa cility:[facility] Start: 12-31-2024 Lorraine Johns Start: 12-30-2024 ambulatory Efml Mena OLS Fa cility:[facility] Start: 12-30-2024 Lorraine Johns Start: 12-26-2024 End: 12-26-2024 Follow-up encounter Anjel Braga INFANTRY SENIOR SERGEANT.QUALITY ENGINEER Work Phone: [facility] Start: 12-26-2024 Dr. Shilpa edwards MD -[facility] Work Phone: Start: 12-25-2024 Dr. Shilpa edwards MD -[facility] Work Phone: Start: 12-24-2024 Paulino [facility] Start: 12-24-2024 Dr. Shilpa edwards MD -[facility] Work Phone: Start: 12-23-2024 Paulino [facility] Start: 12-23-2024 ambulatory Raul Jensen Facility:[facility] Start: 12-23-2024 Dr. Raul Jensen MD -[facility] Start: 12-23-2024 Dr. Shilpa edwards MD -[facility] Work Phone: Start: 12-22-2024 Dr. Lisha Talamantes -[facility] Work Phone: Start: 12-21-2024 Dr. Lisha Talamantes DO -[facility] Work Phone: Start: 12-20-2024 Dr. Lisha Talamantes DO -[facility] Work Phone: Start: 12-19-2024 Dr. Lisha Talamantes DO -[facility] Work Phone: Start: 12-18-2024 ambulatory [facility] ility:[facility] Start: 12-18-2024 End: 12-26-2024 Evaluation and management of inpatient Dr. Daija Morton MD Work Phone: -Progressive Care Unit Start: 12-18-2024 End: 12-26-2024 Dr. Shilpa Contreras MD -[facility] Care Unit Work Phone: Start: 12-18-2024 ambulatory Milton Guajardo Facility:[facility] Start: 12-18-2024 Dr. Milton Guajardo MD -[facility] Start: 12-17-[address] Germain Morton MD Work Phone: -Progressive Care Unit Start: 12-17-2024 Dr. Roman Patel DO -Progressive Care Unit Work Phone: Start: 12-17-2024 End: 12-20-2024 ambulatory Daija Morton MD Work Phone: [facility] [place] Start: 12-17-2024 End: 12-24-2024 Telephone encounter Daija Morton MD Work Phone: [facility] Comment on above: Patient Update Start: 12-16-2024 End: 12-17-2024 Refill Daija Morton MD Work Phone: [facility] [place] Comment on above: Refill Request SOB (shortness of br eath) (Primary Dx) Start: 12-16-2024 Dr. Lisha Talamantes DO -[facility] Work Phone: Start: 12-15-2024 Dr. Lisha Talamantes DO -[facility] Work Phone: Start: 12-14-2024 Dr. Lisha Talamantes DO -[facility] Work Phone: Start: 12-13-2024 Non-patient / Non-visit Dr. Kisha Contreras MD -[facility] Work Phone: Start: 12-13-2024 End: [...] 12-12-2024 Subsequent hospital visit by physician Xr [facility] Ag[facility] Work Phone: Radiology Comment on above: Wheezing [R06.2] Start: 12-12-2024 End: 12-12-2024 ambulatory DAIJA MORTON Facility:[facility] Start: 12-12-2024 End: 12-12-2024 Office outpatient visit 25 minutes Anjel Braga KISHORE Work Phone: Internal [facility] [place] Comment on above: Other emphysema (HCC ) (Primary Dx); Smoker; Wheezing; Lower abdominal tenderness; Loose stools; On home oxygen therapy; Primary hypertension; Left leg pain; Falls; Weakness Start: 12-12-2024 End: 12-12-2024 ambulatory ANJEL [facility] Facility:[facility] Start: 12-09-2024 End: 12-09-2024 Telephone encounter Daija Morton MD Work Phone: Internal Medicine [place] Comment on above: Home Care Management ; Patient Update Start: 12-06-2024 End: 12-06-2024 Telephone encounter Daija Morton MD Work Phone: Internal Medicine [place] Comment on above: [facility] [facility] update Start: 12-03-2024 End: 12-04-2024 Telephone encounter Daija Morton MD Work Phone: Internal [facility] [place] Comment on above: Home Health Orders Start: 12-02-2024 ambulatory Carla Constantino ty:[facility] Start: 12-02-[address] Carla Prather MD -[facility] Start: 12-02-2024 Dr. Carla Prather MD [facility] Start: 11-05-2024 End: 11-05-[address] Daija Morton MD Work Phone: [facility] Work Phone: Start: 11-05-2024 End: 11-05-[address] Carla Prather MD -[facility] Start: 11-05-2024 End: 11-05-2024 Dr. Carla Prather MD -[facility] Start: 11-05-2024 End: 11-05-2024 ambulatory Carla RAIN Facility:[facility] Start: 10-16-2024 ambulatory Carla RAIN Facili ty:[facility] Start: 10-16-[address] Carla Prather MD -[facility] Start: 10-16-2024 Dr. Carla Prather MD -[facility] Start: 09-02-2024 Non-patient / Non-visit Dr. Brody Maynard MD -[facility] Work Phone: Start: 09-02-2024 Dr. Brody Maynard MD -[facility] Work Phone: Start: 09-01-2024 Non-patient / Non-visit Dr. Celia rapp MD [facility] Work Phone: Start: 09-01-2024 [facility] Work [facility]: Start: 08-31-2024 Non-patient / Non-visit Dr. Celia rapp MD [facility] Work Phone: Start: 08-31-2024 [facility] Work Phone: Start: 08-30-2024 Non-patient / Non-visit Dr. Celia rapp MD [facility] Work Phone: Start: 08-30-2024 [facility] Work Phone: Start: 08-29-2024 Non-patient / Non-visit Dr. Celia rapp MD [facility] Work Phone: Start: 08-29-2024 [facility] Work Phone: Start: 08-28-2024 Non-patient / Non-visit Dr. Celia rapp MD [facility] Work Phone: Start: 08-28-2024 [facility] Work Phone: Start: 08-27-2024 ambulatory Lisha Albin Facility:[facility] Start: 08-27-2024 End: 09-02-2024 Evaluation and management of inpatient Dr. Brody Maynard MD -[facility] Work Phone: Start: 08-27-2024 End: 09-02-2024 Dr. Brody Maynard MD -[facility] Work Phone: Start: 08-27-2024 Non-patient / Non-visit Dr. Celia rapp MD -[facility] Work Phone: Start: 08-27-2024 Dr. Celia Toribio MD -[facility] Work Phone: Start: 08-26-2024 Non-patient / Non-visit Dr. Celia rapp MD -[facility] Work Phone: Start: 08-26-2024 Dr. Celia Toribio MD -[facility] Work Phone: Start: 08-25-2024 Non-patient / Non-visit Dr. Lisha Talamantes DO [facility] Work Phone: Start: 08-25-2024 Dr. Lisha Talamantes [facility] Work Phone: Start: 08-25-2024 ambulatory Lisha Talamantes Facility:[facility] Start: 08-25-2024 Evaluation and management of inpatient Dr. Lisha Talamantes DO -[facility] Surgical 3 Work Phone: Start: 08-25-[address] Germain Morton MD Work Phone: [facility] Work Phone: Start: 07-15-2024 ambulatory Carla Constantino ty:[facility] Start: 07-15-[address] Carla Prather MD -[facility] Start: 05-17-2024 End: 05-17-2024 Telephone encounter Daija Morton MD Work Phone: [facility] [place] Comment on above: Patient Update Start: 04-29-2024 End: 05-14-2024 Telephone encounter Daija Morton MD Work Phone: [facility] [place] Comment on above: Patient Update Start: 04-12-2024 ambulatory Carla Constantino ty:[facility] Start: 04-08-2024 ambulatory Maxi Curtis Facility:[facility] Start: 04-07-2024 ambulatory [facility] Facility: [facility] Start: 04-07-2024 End: 04-10-2024 Evaluation and management of inpatient [facility] Facility:[facility] Start: 04-06-2024 ambulatory Kathi Ibrahim Facility :[facility] Start: 04-04-2024 End: 04-24-2024 Telephone encounter Daija Morton MD Work Phone: [facility] [place] Comment on above: Patient Update Start: 03-31-2024 End: 04-04-2024 Telephone encounter Sera SALDIVAR Work Phone: [facility] Comment on above: Results Start: 03-25-2024 End: 03-25-2024 Telephone encounter Sera SALDIVAR Work Phone: [facility] Comment on above: Results Start: 03-23-2024 End: 03-23-2024 ambulatory DAIJA MORTON Facility:[facility] Start: 03-23-2024 End: 03-23-2024 Patient encounter procedure Pura Carter APRN.CNP Work Phone: [facility] Comment on above: Uncontrolled hyperte nsion (Primary Dx); Dysuria; Urinary tract infection without hematuria, site unspecified Start: 03-12-2024 End: 03-12-2024 Refill Daija Morton MD Work Phone: [facility] [place] Comment on above: Refill Request Start: 02-20-2024 End: 02-20-2024 Emergency department patient visit Olayinka Art Facility:[facility] Start: 01-23-2024 Refill Daija Carson Work Phone: [facility] [place] Comment on above: Refill Request Start: 01-03-2024 End: 01-03-2024 Emergency department patient visit Jb Adler Facility:[facility] Start: 01-02-2024 Orders Only Ryan May MD Work Phone: Vascular Surgery Comment on above: Peripheral arterial disease (HCC) (Primary Dx) Start: 01-01-2024 Telephone encounter Daija pressley MD Work Phone: [facility] [place] Comment on above: No Show Start: 12-22-2023 Telephone encounter Daija pressley MD Work Phone: [facility] [place] Comment on above: Mental status change Start: [...] Daija pressley MD Work Phone: [facility] [place] Comment on above: Future Appointment Start: 11-17-2023 Telephone encounter Rebekah Luu PA-C Work Phone: Family [facility] [place] Comment on above: Orders (Follow skill ed nursing orders from [facility]) Start: 11-15-2023 Telephone encounter Rebekah SALDIVAR-Edilma Work Phone: [facility] [place] Start: 11-09-2023 Telephone encounter Daija pressley MD Work Phone: [facility] [place] Comment on above: Orders Start: 10-19-2023 Telephone encounter Daija pressley MD Work Phone: [facility] [place] Comment on above: FYI-No Action Needed Start: 08-21-2023 ambulatory Lisa Marusa [facility] Comment on above: Population Health Na vigation Outreach ([employer] care gaps) Start: 08-04-2023 Refill Daija Carson Work Phone: [facility] [place] Comment on above: Refill Request Start: 08-02-2023 Dr. Daija pressley Work Phone: [facility] Work Phone: Start: 08-01-2023 Dr. Daija pressley Work Phone: [facility] Work Phone: Start: 07-31-2023 Dr. Daija pressley Work Phone: [facility] Work Phone: Start: 07-30-2023 End: 08-02-2023 Evaluation and management of inpatient Dr. Daija Morton Work Phone: [facility] Work Phone: Start: 07-30-2023 End: 08-02-2023 Dr. Daija Morton Work Phone: [facility]-Intensive Care Unit Work Phone: Start: 07-27-2023 Dr. Daija pressley Work Phone: [facility] Start: 07-26-2023 Dr. Daija pressley Work Phone: [facility] Work Phone: Start: 07-25-2023 Dr. Daija pressley Work Phone: [facility] Work Phone: Start: 07-24-2023 Evaluation and management of inpatient Dr. Daija Morton Work Phone: [facility] Surgical 3 Work Phone: Start: 07-24-2023 Non-patient / Non-visit Dr. Vernon Morton Work Phone: [facility] [facility] Work Phone: Start: 07-24-2023 End: 07-26-2023 Dr. Daija Morton Work Phone: [facility] 3 Work Phone: Start: 07-19-2023 Telephone encounter Daija pressley MD Work Phone: [facility] [place] Comment on above: Patient Update Start: 07-10-2023 End: 07-15-[address] DAIJA MORTON MD Facility:A Start: 06-14-2023 End: 06-14-[address] Daija Morton Work Phone: [facility] Work Phone: Start: 06-14-2023 End: 06-14-[address] Daija Morton Work Phone: [facility]-Laboratory, Specimen Work Phone: Start: 06-14-2023 End: 06-14-2023 Dr. Daija Morton [facility]: Start: 05-30-2023 Refill Daija Carson Work Phone: [facility] [place] Comment on above: Refill Request Start: 05-19-2023 Telephone encounter Daija pressley MD Work Phone: [facility] [place] Comment on above: Need verbal for Adva royce [facility] Start: 05-19-2023 End: 05-19-[address] Daija Morton Work Phone: [facility] Work Phone: Start: 05-19-2023 End: 05-19-[address] Daija Morton Work Phone: [facility] Start: 05-19-2023 End: 05-19-2023 Dr. Daija Morton Work Phone: [facility] Start: 04-19-[address] Daija Morton Work Phone: [facility] Start: 04-19-2023 Dr. Daija pressley Work Phone: [phone] [place] [address] Start: 04-17-[address] Daija Morton Work Phone: [phone] [place] [address] Start: 04-17-2023 Dr. Daija pressley Work Phone: [phone] [place] [address] Start: 04-12-[address] Daija Morton Work Phone: [phone] [place] [address] Start: 04-12-2023 Dr. Daija pressley Work Phone: [phone] [place] [address] Start: 04-05-[address] Daija Morton Work Phone: [phone] [place] [address] Start: 04-05-2023 Dr. Daija pressley Work Phone: [phone] [place] [address] Start: 04-04-2023 Non-patient / Non-visit Dr. Vernon Morton Work Phone: [facility] Work Phone: Start: 04-04-2023 Dr. Daija pressley Work Phone: [facility] Work Phone: Start: 04-03-2023 Non-patient / Non-visit Dr. Vernon Morton Work Phone: [facility] Work Phone: Start: 04-03-2023 Dr. Daija pressley Work Phone: [facility] Work Phone: Start: 04-02-2023 Non-patient / Non-visit Dr. Vernon Morton Work Phone: [facility] Work Phone: Start: 04-02-2023 Dr. Daija pressley Work Phone: [facility] Work Phone: Start: 04-01-2023 Non-patient / Non-visit Dr. Vernon Morton Work Phone: [facility] Work Phone: Start: 03-31-2023 Telephone encounter Daija pressley MD Work Phone: [address] [place] [address] Comment on above: Erroneous encounter- disregard Start: 03-31-2023 Non-patient / Non-visit Dr. Vernon Morton Work Phone: [facility] Work Phone: Start: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 series) [facility] Start: 03-19-2024 Lipid 1996 panel - Serum or Plasma Lipid Screening [facility] Start: 03-19-2024 Lipid panel Lipid Screening [facility] Start: 03-19-2024 LIPID SCREEN LIPID SCREEN [facility] Start: 02-18-2024 Covid-19 Vaccine () Covid-19 Vaccine () [facility] Start: 02-18-2024 Influenza vaccination Influenza Vaccine (#1) [facility] Start: 01-02-2024 End: 01-02-2024 Patient encounter procedure [facility] Comment on above: PVD FOLLOW UP Start: 01-01-2024 End: 01-01-2024 Patient encounter procedure 01/01/2024 9:20 AM EDT Office Visit [facility] [place] [address] [place], [place] [id number] Daija Morton MD [address] [place] [address] 4-6 wk follow up [facility] [place] Comment on above: 4-6 wk follow up Start: 11-21-2023 End: 02-20-2024 CBC W Auto Differential panel - Blood COMPLETE BLOOD COUNT AND DIFFERENTIAL Lab Routine COPD with chronic bronchitis (HCC) Expected: 11/21/2023, Expires: 02/20/2024 [facility] Comment on above: Expected: 11/21/2023, Expires: Start: 11-21-2023 End: 02-20-2024 Comprehensive metabolic 2000 panel - Serum or Plasma COMPREHENSIVE METABOLIC PANEL Lab Routine Mixed hyperlipidemia Expected: 11/21/2023, Expires: 02/20/2024 [facility] Comment on above: Expected: 11/21/2023, Expires: Start: 11-21-2023 End: 02-20-2024 Hemoglobin A1c in Blood HEMOGLOBIN A1C Lab Routine Mixed hyperlipidemia Expected: 11/21/2023, Expires: 02/20/2024 [facility] Work Phone: Comment on above: Expected: 11/21/2023, Expires: Start: 11-21-2023 End: 02-20-2024 Lipid 1996 panel - Serum or Plasma LIPID PANEL BASIC Lab Routine Mixed hyperlipidemia Expected: 11/21/2023, Expires: 02/20/2024 [facility] Comment on above: Expected: 11/21/2023, Expires: Start: 11-21-2023 End: 11-21-2023 Patient encounter procedure [facility] Comment on above: hospital discharge/ skilled nursing fractur e of pelvic hospital discharge/ skilled nursing fracture of pelvic(See phone encounter) Start: 11-21-2023 End: 11-21-2023 Patient encounter procedure 11/21/2023 9:40 AM EDT Office Visit [facility] [place] [address] [place] [address] Rebekah Luu PA-C [address] [place] [address] follow up shelter / copd Family [facility] [place] Comment on above: follow up shelter / copd Start: 08-28-2023 ANNUAL PCP TEAM CHRONIC DISEASE VISIT ANNUAL PCP TEAM CHRONIC DISEASE VISIT [facility] Start: 08-02-2023 Patient discharge [facility] Start: 08-01-2023 Referral to occupational therapist [facility] Start: 08-01-2023 Referral to service [facility] Start: 07-31-[address] [facility] Start: 07-31-2023 Oxygen therapy [facility] Start: 07-31-2023 Respiratory secretion precautions [facility] Start: 07-31-2023 Following clinical pathway protocol [facility] Start: 07-31-[address] [facility] Start: 07-31-2023 Physiotherapy of chest [facility] Start: 07-31-2023 Hospital admission, emergency, from emergency room, medical nature [facility] Start: 07-31-2023 Inhalation therapy procedure [facility] Start: 07-30-2023 Dual pressure spontaneous ventilation support [facility] Start: 07-30-2023 Admission procedure [facility] Start: 07-30-2023 [facility] Start: 07-26-2023 Patient discharge [facility] Start: 07-25-2023 Referral to occupational therapist [facility] Start: 07-25-2023 Referral to service [facility] Start: 07-25-2023 Inhalation therapy procedure [facility] Start: 07-24-2023 Following clinical pathway protocol [facility] Start: 07-24-2023 Assessment of risk of venous thromboembolism [facility] Start: 07-24-2023 Insertion of catheter into peripheral vein [facility] Start: 07-24-2023 Oxygen therapy [facility] Start: 07-24-2023 Providing care according to standard [facility] Start: 07-24-2023 Referral to service [facility] Start: 07-24-2023 [facility] Start: 07-24-2023 Verification routine [facility] Start: 07-24-2023 Admission procedure [facility] Start: 07-24-2023 Hospital admission, emergency, from emergency room, medical nature [facility] Start: 07-24-2023 Consultation [facility] Start: 07-24-2023 Consultation [facility] Start: 07-24-2023 Patient referral to dietitian [facility] Start: 06-19-2023 Advance Directive Discussion Advance Directive Discussion [facility] Start: 04-04-2023 Patient discharge [facility] Start: 04-03-2023 Consultation [facility] Start: 04-02-2023 Contact precautions [facility] Start: 03-30-2023 End: 03-30-2023 Following clinical pathway protocol [facility] Start: 03-30-2023 Assessment of risk of venous thromboembolism [facility] Start: 03-30-2023 Catheterization of vein [facility] Start: 03-30-2023 Inhalation therapy procedure [facility] Start: 03-30-2023 Insertion of catheter into peripheral vein [facility] Start: 03-30-2023 Oxygen therapy [facility] Start: 03-30-2023 Providing care according to standard [facility] Start: 03-30-2023 Provision of activity privileges [facility] Start: 03-30-2023 Referral to occupational therapist [facility] Start: 03-30-2023 Referral to service [facility] Start: 03-30-2023 End: 03-30-2023 [facility] Start: 03-30-2023 End: 03-30-2023 Blood culture [facility] Start: 03-30-2023 Verification routine [facility] Start: 03-30-2023 Hospital admission, emergency, from emergency room, medical nature [facility] Start: 03-30-2023 Admission procedure [facility] Start: 03-30-2023 Bacteria identified in Blood by Culture Blood Culture [facility] Start: 03-30-2023 Consultation [facility] Start: 03-30-2023 Inhalation therapy procedure [facility] Start: 03-29-2023 [facility] Start: 03-29-2023 Emergency department visit low/moder severity EMERGENCY DEPT VISIT [facility] Start: 03-10-2023 ANNUAL PCP TEAM CHRONIC DISEASE VISIT ANNUAL PCP TEAM CHRONIC DISEASE VISIT [facility] Start: 02-17-2023 Covid-19 Vaccine ( season) Covid-19 Vaccine ( season) [facility] Start: 02-17-2023 Influenza vaccination [facility] Start: 02-04-2023 ANNUAL PCP TEAM CHRONIC DISEASE VISIT ANNUAL PCP TEAM CHRONIC DISEASE VISIT [facility] Start: 01-28-2023 ANNUAL PCP TEAM CHRONIC DISEASE VISIT ANNUAL PCP TEAM CHRONIC DISEASE VISIT [facility] Start: 01-14-2023 SHINGRIX VACCINE (2 of 3) SHINGRIX VACCINE (2 of 3) [facility] Comment on above: Postponed from 11/19/2020 (Declined at t his time) Start: 01-03-2023 Urine microalbumin profile DTAP,TDAP,TD (2 - Td or Tdap) [facility] Start: 11-17-2022 ANNUAL PCP TEAM CHRONIC DISEASE VISIT ANNUAL PCP TEAM CHRONIC DISEASE VISIT [facility] Start: 10-26-2022 COVID-19 VACCINE (4 - Moderna series) COVID-19 VACCINE (4 - Moderna series) [facility] Start: 10-21-2022 [facility] Start: 10-07-2022 ANNUAL PCP TEAM CHRONIC DISEASE VISIT ANNUAL PCP TEAM CHRONIC DISEASE VISIT [facility] Start: 09-15-2022 ANNUAL PCP TEAM CHRONIC DISEASE VISIT ANNUAL PCP TEAM CHRONIC DISEASE VISIT [facility] Start: 06-19-2022 ADVANCE DIRECTIVE DISCUSSION ADVANCE DIRECTIVE DISCUSSION [facility] Start: 04-02-2022 ANNUAL PCP TEAM CHRONIC DISEASE VISIT ANNUAL PCP TEAM CHRONIC DISEASE VISIT [facility] Start: 03-29-2022 End: 05-29-2022 Hemoglobin A1c in Blood HGB A1C Lab Routine Medication management Expected: 03/29/2022, Expires: 05/29/2022 [facility] Work Phone: Comment on above: Expected: 03/29/2022, Expires: 2 Start: 03-29-2022 End: 05-29-2022 Lipid 1996 panel - Serum or Plasma LIPID PANEL BASIC Lab Routine Hyperlipidemia Expected: 03/29/2022, Expires: 05/29/2022 [facility] Work Phone: Comment on above: Expected: 03/29/2022, Expires: 2 Start: 03-29-2022 End: 05-29-2022 SCHEDULE LAB TESTING SCHEDULE LAB TESTING Lab Routine Expected: 03/29/2022, Expires: 05/29/2022 [facility] Work Phone: Comment on above: Expected: 03/29/2022, Expires: 2 Start: 02-17-2022 Influenza vaccination INFLUENZA (#1) [facility] Start: 01-14-2022 End: 03-16-2022 CBC W Auto Differential panel - Blood [facility] Work Phone: Comment on above: Expected: 01/14/2022, Expires: 2 Start: 11-30-2021 Patient discharge [facility] Work Phone: Start: 11-28-2021 Care planning and problem solving actions [facility] Work Phone: Start: 11-26-2021 Administration of blood product [facility] Work Phone: Start: 11-26-2021 Catheterization of vein [facility] Work Phone: Start: 11-26-[address] [facility] Work Phone: Start: 11-26-2021 Referral to occupational therapist [facility] Work Phone: Start: 11-26-2021 End: 11-26-2021 Referral to service [facility] Work Phone: Start: 11-26-2021 Catheterization of vein [facility] Work Phone: Start: 11-26-2021 Following clinical pathway protocol [facility] Work Phone: Start: 11-26-2021 Inhalation therapy procedure [facility] Work Phone: Start: 11-25-2021 Assessment of risk of venous thromboembolism [facility] Work Phone: Start: 11-25-2021 Insertion of catheter into peripheral vein [facility] Work Phone: Start: 11-25-2021 Measuring intake and output [facility] Work Phone: Start: 11-25-2021 Oxygen therapy [facility] Work Phone: Start: 11-25-2021 Providing care according to standard [facility] Work Phone: Start: 11-25-2021 Provision of activity privileges [facility] Work Phone: Start: 11-25-2021 Referral to gastroenterology service [facility] Work Phone: Start: 11-25-2021 [facility] Work Phone: Start: 11-25-2021 Admission procedure [facility] Work Phone: Start: 11-25-2021 End: 11-25-2021 Administration of blood product [facility] Work Phone: Start: 11-25-2021 Patient referral to dietitian [facility] Work Phone: Start: 10-23-2021 End: 12-23-2021 PT panel - Platelet poor plasma by Coagulation assay PROTHROMBIN TIME/PT Lab Routine Anticoagulation goal of INR 2 to 3 Expected: 10/23/2021, Expires: 12/23/2021 [facility] Work Phone: Comment on above: Expected: 10/23/2021, Expires: 2 Start: 10-19-2021 End: 12-19-2021 Hemoglobin A1c/Hemoglobin.total in Blood HGB A1C Lab Routine Medication management Expected: 10/19/2021, Expires: 12/19/2021 [facility] Work Phone: Comment on above: Expected: 10/19/2021, Expires: 2 Start: 10-19-2021 End: 12-19-2021 LIPID PANEL BASIC LIPID PANEL BASIC Lab Routine Hyperlipidemia Expected: 10/19/2021, Expires: 12/19/2021 [facility] Work Phone: Comment on above: Expected: 10/19/2021, Expires: 2 Start: 10-19-2021 End: 12-19-2021 SCHEDULE LAB TESTING SCHEDULE LAB TESTING Lab Routine Expected: 10/19/2021, Expires: 12/19/2021 [facility] Work Phone: Comment on above: Expected: 10/19/2021, Expires: 2 Start: 10-17-2021 Colonoscopy COLONOSCOPY [facility] Start: 10-17-2021 COLORECTAL CANCER SCREENING COLORECTAL CANCER SCREENING [facility] Start: 09-22-2021 End: 11-22-2021 CBC W Auto Differential panel - Blood CBC + DIFF Lab Routine Anemia, unspecified type Expected: 09/22/2021, Expires: 11/22/2021 [facility] Work Phone: Comment on above: Expected: 09/22/2021, Expires: 2 Start: 09-22-2021 End: 11-22-2021 PT panel - Platelet poor plasma by Coagulation assay PROTHROMBIN TIME/PT Lab Routine Encounter for monitoring Coumadin therapy Expected: 09/22/2021, Expires: 11/22/2021 [facility] Work Phone: Comment on above: Expected: 09/22/2021, Expires: Start: 08-21-2021 Patient discharge [facility] Work Phone: Start: 08-19-2021 Application of intermittent pneumatic compression device [facility] Work Phone: Start: 08-19-2021 Oxygen therapy [facility] Work Phone: Start: 08-19-2021 Tobacco use cessation education [facility] Work Phone: Start: 08-19-2021 [facility] Work Phone: Start: 08-19-2021 Care planning and problem solving actions [facility] Work Phone: Start: 08-19-2021 Administration of blood product [facility] Work Phone: Start: 08-19-2021 Referral to teacher adventure education [facility] Work Phone: Start: 08-19-2021 [facility] Work Phone: Start: 08-19-2021 Referral to occupational therapist [facility] Work Phone: Start: 08-19-2021 Referral to service [facility] Work Phone: Start: 08-19-2021 Application of intermittent pneumatic compression device [facility] Work Phone: Start: 08-19-2021 Administration of blood product [facility] Work Phone: Start: 08-19-2021 Administration of blood product [facility] Work Phone: Start: 08-19-2021 Inhalation therapy procedure [facility] Work Phone: Start: 08-18-2021 Following clinical pathway protocol [facility] Work Phone: Start: 08-18-2021 Ambulation without limitation [facility] Work Phone: Start: 08-18-2021 Assessment of risk of venous thromboembolism [facility] Work Phone: Start: 08-18-2021 Insertion of catheter into peripheral vein [facility] Work Phone: Start: 08-18-2021 Providing care according to standard [facility] Work Phone: Start: 08-18-2021 [facility] Work Phone: Start: 08-18-2021 Admission procedure [facility] Work Phone: Start: 06-19-2021 ADVANCE DIRECTIVE DISCUSSION ADVANCE DIRECTIVE DISCUSSION [facility] Start: 06-04-2021 Smpl repair scalp/neck/ax/genit/trunk 2.6-7.5cm RPR S/N/AX/GEN/TRNK2.6-7.5C M [facility] Work Phone: Start: 11-19-2020 SHINGRIX VACCINE (2 of 3) SHINGRIX VACCINE (2 of 3) [facility] Start: 11-05-2020 COVID-19 VACCINE (2 - Moderna 3-dose series) COVID-19 VACCINE (2 - Moderna 3-dose series) [facility] Start: 11-05-2020 COVID-19 VACCINE (2 - Moderna series) COVID-19 VACCINE (2 - Moderna series) [facility] Start: 03-19-2020 Hepatitis B surface antibody level LDL CHOLESTEROL [facility] Start: 11-15-2015 FECAL OCCULT BLOOD FECAL OCCULT BLOOD [facility] Start: 11-15-2015 Screening for malignant neoplasm of colon Fecal Occult Blood [facility] Start: 01-17-2014 Medicare Annual Wellness Visit Medicare Annual Wellness Visit [facility] Start: 2009 RSV Vaccine (1 - 1-dose 60+ series) RSV Vaccine (1 - 1-dose 60+ series) [facility] Start: 2009 RSV Vaccine (1 - Risk 60-74 years 1-dose series) RSV Vaccine (1 - Risk 60-74 years 1-dose series) [facility] Start: 1999 Influenza vaccination LUNG CANCER SCREENING [facility] Start: 1999 Screening for malignant neoplasm of lung Lung Cancer Screening [facility] Start: 1999 SHINGRIX VACCINE (1 of 2) SHINGRIX VACCINE (1 of 2) [facility] Start: 1994 COLOGUARD (FIT-DNA) COLOGUARD (FIT-DNA) [facility] Start: [address] COLONOGRAPHY [facility] Start: 1994 Screening for malignant neoplasm of colon [facility] Start: 1994 SIGMOIDOSCOPY SIGMOIDOSCOPY [facility] Start: 1979 Zoledronic acid therapy ALPHA-1 ANTITRYPSIN DEFICIENCY SCREENING [facility] Start: 1967 BP CONTROLLED (<130/80) BP CONTROLLED (<130/80) [facility] Bacteria identified in Urine by Culture URINE CULTURE Microbiology Routine Dysuria Ordered: 09/15/2021 [facility] Work Phone: Comment on above: Ordered: 09/15/2021 Bacteria identified in Urine by Culture Urine Culture [facility] Bacteria identified in Urine by Culture URINE CULTURE Microbiology Routine Dysuria 03/23/2024 2:06 PM EDT [facility] Work Phone: Clostridioides diffi cile DNA [Presence] in Unspecified specimen by ALEENA with probe detection [facility] End: 01-28-2023 ECG COMPLETE ECG COMPLETE ECG Routine Essential hypertension Chest pain, unspecified type 1 Occurrences starting 01/28/2022 until 01/28/2023 [facility] Work Phone: Comment on above: 1 Occurrences starting 01/28/2022 until 01/28/2023 Hemoglobin A1c/Hemoglobin.total in Blood [facility] Hemoglobin.gastroint estinal. lower [Presence] in Stool by Immunoassay FECAL OCCULT BLOOD TEST Lab Routine Acute blood loss anemia Angiodysplasia of colon with hemorrhage Ordered: 01/14/2022 [facility] Work Phone: Comment on above: Ordered: 01/14/2022 INR in Blood by Coag ulation assay [facility] Lactic acid measurement [facility] End: 12-05-2022 LUNG DIFFUSION CAPACITY (DLCO) LUNG DIFFUSION CAPACITY (DLCO) PFT Routine COPD with chronic bronchitis (HCC) 1 Occurrences starting 11/05/2021 until 12/05/2022 [facility] Work Phone: Comment on above: 1 Occurrences starting 11/05/2021 until 12/05/2022 End: 01-15-2026 LUNG DIFFUSION CAPACITY (DLCO) LUNG DIFFUSION CAPACITY (DLCO) PFT Routine SOB (shortness of breath) 1 Occurrences starting 12/17/2024 until 01/15/2026 [facility] Comment on above: 1 Occurrences starting 12/17/2024 until 01/15/2026 Nucleic acid assay [facility] Patient Education [facility] Work Phone: Patient referral [facility] Work Phone: End: 06-18-2023 PVR LEG COREY VAS LAB PVR LEG COREY VAS LAB Vascular Lab Routine PVD (peripheral vascular disease) (HCC) 1 Occurrences starting 01/31/2022 until 06/18/2023 [facility] Work Phone: Comment on above: 1 Occurrences starting 01/31/2022 until 06/18/2023 PVR LEG COREY VAS LAB PVR LEG COREY VAS LAB Vascular Lab Routine Peripheral arterial disease (HCC) PVD (peripheral vascular disease) (HCC) 1 Occurrences starting 12/26/2022 [facility] Work Phone: Comment on above: 1 Occurrences starting 12/26/2022 End: 12-05-2022 Radiologic exam chest 2 views XR CHEST 2V FRONTAL/LAT Radiology Routine COPD with chronic bronchitis (HCC) 1 Occurrences starting 11/05/2021 until 12/05/2022 [facility] Work Phone: Comment on above: 1 Occurrences starting 11/05/2021 until 12/05/2022 Respiratory pathogen s DNA and RNA panel - Respiratory specimen by ALEENA with probe detection [facility] End: 01-15-2026 SPIROMETRY WITH DILATOR IF OBSTRUCTED SPIROMETRY WITH DILATOR IF OBSTRUCTED PFT Routine SOB (shortness of breath) 1 Occurrences starting 12/17/2024 until 01/15/2026 [facility] Work Phone: Comment on above: 1 Occurrences starting 12/17/2024 until 01/15/2026 Troponin T.cardiac [Mass/volume] in Serum or Plasma by High sensitivity method [facility] Troponin T.cardiac [Mass/volume] in Serum or Plasma by High sensitivity method [facility] Urinalysis complete panel - Urine URINALYSIS, WITH MICROSCOPIC Lab Routine Dysuria Hematuria, unspecified type Ordered: 09/15/2021 [facility] Work Phone: Comment on above: Ordered: 09/15/2021 Urinalysis complete panel - Urine UA WITH CULTURE IF INDICATED Lab Routine Dysuria Ordered: 09/15/2021 [facility] Work Phone: Comment on above: Ordered: 09/15/2021 End: 01-01-2025 US Lower extremity artery - bilateral PVR LEG COREY VAS LAB Vascular Lab Routine Peripheral arterial disease (HCC) 1 Occurrences starting 01/02/2024 until 01/01/2025 [facility] Work Phone: Comment on above: 1 Occurrences starting 01/02/2024 until 01/01/2025 End: 01-11-2026 XR Chest PA and Lateral XR CHEST 2V FRONTAL/LAT Radiology Routine Wheezing 1 Occurrences starting 12/12/2024 until 01/11/2026 [facility] Comment on above: 1 Occurrences starting 12/12/2024 until 01/11/2026 XR Chest PA and Lateral XR CHEST 2V FRONTAL/LAT Radiology Routine Wheezing 12/12/2024 3:36 PM EDT [facility] Immunizations Immunization Date Immunization Notes Care Provider Luis [facility] 03-31-2023 Influenza High-Dose Quadrivalent Dr. Daija Morton Work Phone: [facility] 03-31-2023 influenza virus vaccine, unspecified formulation Daija Morton MD Work Phone: [facility] 06-04-2021 tetanus toxoid, redu marianna diphtheria toxoid, and acellular pertussis vaccine, adsorbed Dr. Daija Morton Work Phone: [facility] 04-05-2021 influenza, high-dose , quadrivalent vaccine (FLUZONE HIGH DOSE QUADRIVALENT) Lizette Ulloa RN Work Phone: [facility] 04-05-2021 influenza virus vaccine, unspecified formulation Anjel Braga INFANTRY SENIOR SERGEANT.QUALITY ENGINEER Work Phone: [facility] 10-08-2020 COVID-19 vaccine, fu ll dose (MODERNA) Lizette Ulloa RN Work Phone: [facility] 09-24-2020 zoster vaccine, live Harriett B monie INFANTRY SENIOR SERGEANT.ELECTRICIAN YARD Work Phone: [facility] 09-16-2020 influenza, high-dose , quadrivalent vaccine (FLUZONE HIGH DOSE QUADRIVALENT) Respiratory Wstr Work Phone: [facility] Work Phone: 08-09-2020 influenza, injectabl e, quadrivalent, contains preservative Harriett Albert INFANTRY SENIOR SERGEANT.ELECTRICIAN YARD Work Phone: [facility] 08-09-2020 influenza, injectabl e, quadrivalent, preservative free Dr. Daija Morton Work Phone: [facility] 08-09-2020 influenza, seasonal, injectable Dr. Daija Morton Work Phone: [facility] 08-09-2020 influenza, seasonal, injectable, preservative free Harriett Albert INFANTRY SENIOR SERGEANT.ELECTRICIAN YARD Work Phone: [facility] 05-21-2020 influenza, high-dose , quadrivalent vaccine (FLUZONE HIGH DOSE QUADRIVALENT) Lizette Ulloa RN Work Phone: [facility] Work Phone: 07-11-2019 influenza, high dose seasonal, preservative-free Lizette Mayi RN Work Phone: [facility] Work Phone: 05-18-2018 pneumococcal polysaccharide vaccine, 23 valent Lizette Ulloa RN Work Phone: [facility] 03-14-2018 influenza, high dose seasonal, preservative-free Lizette Toccaceli RN Work Phone: [facility] 05-31-2017 influenza, high dose seasonal, preservative-free Lizette Toccaceli RN Work Phone: [facility] 06-01-2016 influenza, high dose seasonal, preservative-free Lizette Toccaceli RN Work Phone: [facility] Work Phone: 03-23-2016 influenza, injectabl e, quadrivalent, contains preservative Harriett Albert INFANTRY SENIOR SERGEANT.ELECTRICIAN YARD Work Phone: [facility] 03-23-2016 influenza, injectabl e, quadrivalent, preservative free Dr. Daija Morton Work Phone: [facility] 03-23-2016 influenza, seasonal, injectable Dr. Daija Morton Work Phone: [facility] 03-23-2016 influenza, seasonal, injectable, preservative free Lizette Ulloa RN Work Phone: [facility] Work Phone: 07-14-2015 pneumococcal conjuga te vaccine, 13 valent Lizette Ulloa RN Work Phone: [facility] Work Phone: 09-09-2014 influenza, injectabl e, quadrivalent, contains preservative Harriett Albert INFANTRY SENIOR SERGEANT.ELECTRICIAN YARD Work Phone: [facility] 09-09-2014 influenza, injectabl e, quadrivalent, preservative free Dr. Daija Morton Work Phone: [facility] 09-09-2014 influenza, seasonal, injectable Dr. Daija Morton Work Phone: [facility] 09-09-2014 influenza, seasonal, injectable, preservative free Lizette Ulloa RN Work Phone: [facility] Work Phone: 03-25-2013 pneumococcal polysaccharide vaccine, 23 valent Lizette Ulloa RN Work Phone: [facility] Work Phone: 03-25-[address] Nemesio Morton Work Phone: [facility] Work Phone: 03-25-2013 pneumococcal vaccine , unspecified formulation Respiratory Wstr Work Phone: [facility] Work Phone: 03-24-[address] Daija Morton Work Phone: [facility] 03-24-2013 influenza virus vaccine, unspecified formulation Lizette Ulloa RN Work Phone: [facility] Work Phone: 03-24-2013 influenza, seasonal, injectable Harriett Albert INFANTRY SENIOR SERGEANT.ELECTRICIAN YARD Work Phone: [facility] 03-24-2013 influenza, seasonal, injectable, preservative free Lieztte Ulloa RN Work Phone: [facility] Work Phone: 01-03-2013 tetanus toxoid, redu marianna diphtheria toxoid, and acellular pertussis vaccine, adsorbed Lizette Ulloa RN Work Phone: [facility] Payers Date Payer Category Payer Unknown [id number] 2024 Medicare (Managed Care) [id number] 2024 Medicaid [id number] 2024 Medicare [id number] 2024 Self-pay [id number] 2023 Private Health Insurance [id number] 2022 Unknown [id number] 2021 Medicare [facility] AARP MEDICAR E [facility] AAR MEDICARE HMO [id number] 2021-Present [phone] [address] [address] [place] [address] HMO [id number] 2017 Medicaid [id number] 2017 Medicaid [id number] 2014 Medicare [id number] 2014 Medicare [id number] .[id number] 2014 Medicare [id number] 1949 Unknown [id number] 2..840.1.412622.3.579.2.6 27 1950 Unknown [id number] .16.840.1.419074.3.579.2.6 27 Private Health Insurance [employer] [facility] HMO IN [facility] [id number] Unknown [id number] Unknown [id number] Unknown [id number] 2.16.840.1.335355.3.579.2.4 62 Unknown [id number] 2.16.840.1.793951.3.579.2.4 62 Unknown [id number] 2.16.840.1.792068.3.579.2.4 62 Unknown [id number] 2.16.840.1.431760.3.579.2.4 62 Unknown [id number] 2.16.840.1.450533.3.579.2.4 62 Unknown [id number] 2.16.840.1.884590.3.579.2.4 62 Unknown [id number] 2.16.840.1.010821.3.579.2.4 62 Unknown [id number] 2.16.840.1.243938.3.579.2.4 62 Unknown [id number] 2.16.840.1.584573.3.579.2.4 62 Unknown [id number] 2.16.840.1.849544.3.579.2.4 62 Unknown [id number] 2.16.840.1.489544.3.579.2.4 62 Unknown [id number] 2.16.840.1.829681.3.579.2.4 62 Unknown [id number] 2.16.840.1.635747.3.579.2.4 62 Unknown [id number] 2.16.840.1.377643.3.579.2.4 62 Unknown [id number] 2.16.840.1.577530.3.579.2.4 62 Unknown [id number] 2.16.840.1.406629.3.579.2.4 62 Unknown [id number] 2.16.840.1.369665.3.579.2.4 62 Unknown [id number] 2.16.840.1.970076.3.579.2.4 62 Unknown [id number] 2.16.840.1.867862.3.579.2.4 62 Unknown [id number] 2.16.840.1.852255.3.579.2.4 62 Unknown [id number] 2.16.840.1.021768.3.579.2.4 62 Unknown [id number] 2.16.840.1.735750.3.579.2.4 62 Unknown [id number] 2.16.840.1.200433.3.579.2.4 62 Unknown [id number] 2.16.840.1.319745.3.579.2.4 62 Unknown [id number] 2.16.840.1.146810.3.579.2.4 62 Unknown [id number] 2.16.840.1.543980.3.579.2.4 62 Unknown [id number] 2.16.840.1.184138.3.579.2.4 62 Unknown [id number] 2.16.840.1.553178.3.579.2.4 62 Unknown [id number] 2.16.840.1.515920.3.579.2.4 62 Unknown [id number] 2.16.840.1.513308.3.579.2.4 62 Unknown [id number] 2.16.840.1.439483.3.579.2.4 62 Unknown [id number] 2.16.840.1.835048.3.579.2.4 62 Unknown [id number] 2.16.840.1.740164.3.579.2.4 62 Unknown [id number] 2.16.840.1.654755.3.579.2.4 62 Unknown [id number] 2.16.840.1.827437.3.579.2.4 62 Unknown [id number] 2.16.840.1.998988.3.579.2.4 62 Unknown [id number] 2.16.840.1.448474.3.579.2.4 62 Unknown [id number] 2.16.840.1.460157.3.579.2.4 62 Unknown [id number] 2.16.840.1.566677.3.579.2.4 62 Unknown [id number] 2.16.840.1.599945.3.579.2.4 62 Unknown [id number] 2.16.840.1.378155.3.579.2.4 62 Unknown [id number] 2.16.840.1.094461.3.579.2.4 62 Unknown [id number] 2.16.840.1.712267.3.579.2.4 62 Unknown [id number] 2.16.840.1.250050.3.579.2.4 62 Social History Date Type Detail Facility Start: 04-10-2020 Tobacco smoking stat us WIIS Ex-smoker [facility] Start: 06-19-1964 History of tobacco use Cigarette Smo ker [facility] Start: 04-10-2020 End: 12-26-2022 Cigarettes smoked current (pack per day) - Reported 2 [facility] Start: 04-10-2020 End: 03-23-2024 Tobacco use and exposure Smokeless tobacco non-user [facility] Start: 08-26-2021 End: 12-12-2024 Alcohol intake Current non-drinker of alcohol (finding) [facility] Start: 04-16-2015 History SDOH Alcohol Comment History of alcohol abuse. I cut that out. [facility] Start: 12-17-2019 History SDOH Financial 5 [facility] Start: 12-17-2019 History SDOH Food Worry 2 [facility] Start: 12-17-2019 History SDOH Food Scarcity 1 [facility] Start: 08-22-2019 End: 01-31-2022 Tobacco Comment patient started using patches [facility] Start: 1950 Sex Assigned At Not on file C [facility] Start: 10-12-2020 End: 03-10-2022 Exposure to SARS-CoV-2 (event) Not sure [facility] Start: 09-15-2021 End: 01-03-2025 Tobacco smoking status NHIS Smokes tobacco daily [facility] Start: 09-17-2021 End: 04-02-2023 Tobacco smoking status NHIS Unknown if ever smoked [facility] Start: 01-20-2021 None [facility] Start: 12-16-2019 Half-Way [facility] Start: 08-09-2020 Cigarettes [facility] Start: 1950 Sex Assigned At Male [facility] Start: 09-14-2021 End: 01-28-2022 Exposure to SARS-CoV-2 (event) Unable to assess [facility] Start: 05-14-2018 Tobacco smoking status Light t obacco smoker (finding) [facility] Sex Assigned At Sex [facility] Start: 12-17-2019 End: 12-26-2022 Tobacco use panel [facility] How hard is it for y ou to pay for the very basics like food, housing, medical care, and heating Not hard at all [facility] (I/We) worried whemauricio er (my/our) food would run out before (I/we) got money to buy more. Sometimes true [facility] The food that (I/we) bought just didn't last, and (I/we) didn't have money to get more. Never true [facility] Start: 06-19-1964 History of tobacco use Current smoke r [facility] Start: 08-25-2024 End: 08-25-2024 Tobacco smoking status NHIS Current some day smoker [facility] Start: 08-25-2024 End: 09-02-2024 Sex Male (finding) [facility] Medical Equipment Procedure Code Equipment Code Equipment Original Text Equipment Identifier Dates EGD, with monitored anesthesia care [id number] [facility] Start: 12-23-2024 Graft [place] 7mm T hin Wall Heparin Propaten Ptfe 80cm 60cm Vascular Removable - [id number] Start: 10-10-2019 Patch Cv 8x.8cm Tapr Vsgrd Bov - [id number] Start: 10-23-2013 Comment on above: Description: Implant ed left femoral artery Patch Vascu-Guar d Taper Bovine Pericardial 8x.8cm Cardiovascular [place] - [id number] Start: 10-08-2019 Stent Palmaz Gen esis Opta Pro Flexsegment 8mm 40mm Large Stainless Steel 80 - [id number] Start: 10-08-2019 Stent Palmaz Gen esis Opta Pro Flexsegment 8mm 40mm Large Stainless Steel 80 - [id number] Start: 10-08-2019 Stent Trchbr 7mm 7fr 38mm 120 - [id number] Start: 10-23-2013 Comment on above: Description: Second stent lot #[id number]. exp. 03/2016 Stent Vasc 8mm 1 5cm 120cm .035 - [id number] Start: 10-23-2013 Comment on above: Description: Implant ed in left iliac artery Stent Trchbr 7mm 7fr 38mm 120 - [id number] Start: 10-23-2013 Stent Corey 10mm 8 0mm 120cm .035 - [id number] Start: 10-23-2013 Comment on above: Description: Implant ed in right iliac artery Stent Corey 10mm 8 0mm 120cm .035 - [id number] Start: 10-23-2013 Comment on above: Description: Implant ed in right iliac artery Stent Icast 8mm Ptfe Stainless Steel 59mm 80cm Tracheobronchial Covered - [id number] Start: 10-08-2019 Stent Icast 8mm Ptfe Stainless Steel 59mm 80cm Tracheobronchial Covered - [id number] Start: 10-08-2019 Goals Date Patient Goal Desired Activity /State Personal health goal Personal health goal Comment on above: Formatting of this n ote might be different from the original. Relief of back pain Comment on above: Formatting of this n ote might be different from the original. Relief of back pain Functional Status Date Assessment Result Facility 12-26-2024 Functional status Stand and steward health care systemot [facility] Work Phone: 12-16-2024 Functional status With Assist of 1 [facility] Work Phone: 12-16-2024 Functional status Ambulates;Back to bed [facility] Work Phone: 09-02-2024 Functional status With Assist of 1 [facility] Work Phone: 09-01-2024 Functional status Bathroom Privilege [facility] Work Phone: 08-02-2023 Functional status With Assist of 1 [facility] Work Phone: 08-01-2023 Functional status Bedrest [facility] Work Phone: 07-26-2023 Functional status Chair [facility] Work Phone: 07-26-2023 Functional status Bedrest [facility] Work Phone: 07-25-2023 Functional status None [facility] Work Phone: 04-04-2023 Functional status Up ad chadwick;Bath room Privilege [facility] Work Phone: 10-22-2022 Functional Status Minimum assistance [facility] 10-22-2022 Functional Status Standard Safet y ID band on, Call device within reach, Bed in low position, Wheels locked, Upper/Half-Length side-rails up, Phone within reach, Bedside Cart Locked [facility] 11-30-2021 Functional status Ambulates [facility] Work Phone: 09-29-2021 Functional Status [facility] 09-13-2021 Are you deaf, or do you have serious difficulty hearing No 09/13/2021 4:47 PM EDT Bessy Nunez, ОЛЕГ No [facility] 09-13-2021 Are you blind, or do you have serious difficulty seeing, even when wearing glasses No 09/13/2021 4:47 PM EDT Bessy Nunez, ОЛЕГ No [facility] 09-13-2021 Do you have serious difficulty walking or climbing stairs No 09/13/2021 4:47 PM EDT Bessy Nunez, ОЛЕГ No [facility] 09-13-2021 Do you have difficul ty dressing or bathing No 09/13/2021 4:47 PM EDT Bessy Nunez RN No [facility] 09-13-2021 Because of a physica l, mental, or emotional condition, do you have difficulty doing errands alone such as visiting a physician's office or shopping No 09/13/2021 4:47 PM EDT Bessy Nunez RN No [facility] 08-21-2021 Functional status Ambulates;Emeka r;Bathroom Privilege [facility] Work Phone: 08-21-2021 Functional status Tolerates Activity Well [facility] Work Phone: Mental Status Date Assessment Result Facility 12-26-2024 Cognitive function Voice/Name [facility] Work Phone: 12-17-2024 Cognitive function [facility]/Name [facility] Work Phone: 12-16-2024 Cognitive function [facility]/Name [facility] Work Phone: 09-02-2024 Cognitive function [facility]/Name [facility] Work Phone: 08-25-2024 Cognitive function Level Of Cons ciousness Awake;Alert;Appropriate;Fol lows Commands [facility] Work Phone: 08-02-2023 Cognitive function Voice/Name [facility] Work Phone: 07-26-2023 Cognitive function Person;Place;Time [facility] Work Phone: 07-25-2023 Cognitive function [facility]/Name [facility] Work Phone: 04-04-2023 Cognitive function [facility]/Name [facility] Work Phone: 02-17-2023 Cognitive function Level Of Cons ciousness Awake;Alert;Appropriate;Fol lows Commands [facility] Work Phone: 12-31-2022 Cognitive function Level Of Cons ciousness Awake;Alert;Appropriate;Fol lows Commands [facility] Work Phone: 10-22-2022 Mental Status Orientation Oriented x 4 [facility] 10-22-2022 Mental Status [facility] 03-07-2022 Cognitive function Level Of Cons ciousness Awake;Alert;Appropriate [facility] Work Phone: 03-02-2022 Cognitive function Level Of Cons ciousness Awake;Alert;Appropriate [facility] Work Phone: 01-28-2022 Cognitive function Level Of Cons ciousness Awake;Alert;Appropriate;Fol lows Commands [facility] Work Phone: 11-30-2021 Cognitive function Voice/Name [facility] Work Phone: 10-08-2021 Cognitive function Level Of Cons ciousness Awake;Alert;Appropriate;Fol lows Commands [facility] Work Phone: 09-29-2021 Mental Status [facility] 09-13-2021 Because of a physica l, mental, or emotional condition, do you have serious difficulty concentrating, remembering, or making decisions No 09/13/2021 4:47 PM EDT Bessy Nunez RN No [facility] 08-21-2021 Cognitive function Voice/Name [facility] Work Phone: 06-12-2021 Cognitive function Level Of Cons ciousness Awake;Alert;Appropriate;Fol lows Commands [facility] Work Phone: Clinical Notes 10-08-2019 to 01-03-2025 Note Date & Type Note Facility 01-03-2025 Discharge summary Note Date/Time January 03, 2025 8:01[facility] Medical Records Department [address] [place] [address] Emergency Department Summary 01/03/25 MR#: [id number] Acct: [id number] Name: PEDRO PABLO SIERRA Rep #:[id number] : 1950 74 From: Arnulfo Zhao DO [...] with isopropanol, and inserted a replacement 20 Dutch gastrostomy tube with a 20 cc balloon [...] not ambulatory anyway and already in a skilled nursing. 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 detention states that this morning he fell out [...] further history based on his aphasia/mute status [facility] Medical History Acute CVA (cerebrovascular accident) Aphasia [...] is at his baseline mental status per skilled nursing. Nursing reported he fell out of bed [...] the patient's PEG tube is a 20 Dutch. Therefore we will obtain a similar size in the ER and attempt to replace the PEG tube at this time. The replacement of the PEG tube and imaging studies are still pending and therefore patient be signed out to Dr. Jauregui. I do feel that if all images arenegative patient will be safe to return to the skilled nursing once the PEG tube has been replaced. 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 Call [facility] ([phone]) or report to the closest Emergency Room. Call 911 if necessary. 01/03/2558 <Electronically signed by Arnulfo Zhao DO> Cosigner Signature (if applicable): CC: Dr. Daija Morton MD ~ Signed [facility] Work Phone: 1(568) 738-898407-18-2025 Radiology Diagnostic study [facility]07-18-2025 Radiology Diagnostic study [facility]07-18-2025 Radiology Diagnostic study [facility] 01-03-2025 Radiology Diagnostic study [facility]07-10-2025 Discharge summary Author Shilpa Contreras [facility] Note Date/Time December 26, 2024 3:43 pm [facility] Medical Records Department [address] [place] [address] Discharge Summary 12/26/24 1533 MR#: [id number] Acct: [id number] Name: PEDRO PABLO SIERRA Rep #:[id number] : 1950 74 From: Shilpa Contreras MD PCP: Dr. Daija Morton MD Status:ADM I N Location: [place] [address] Providers Date of Admission: 12/18/24 Date of Discharge: 12/26/24 Primary Care Physician: Dr. Daija Morton MD Consultations 12/19/24 15:57 Consult: Gastroenterology Routine Consulting Provider: [facility] Reason for Consult: Dysphagia-PEG EMERGENT Consult: [...] he had reported lacking healthcare power of prosecuting attorney and living will but had noted [...] Acute COPD Exacerbation who re-presentED to the [facility] ED on 12/17/24 w/ severe dysarthria and [...] s/p PEG placement with following transition from NH ASA->eliquis, d/c IV keppra and resume liquid [...] 84.7 H, Lymph % (Auto) 6.5 L, Gonzales % (Auto) 7.8, Eos % (Auto) 0.2, [...] continued nutrition consultation and evaluation at the shelter facility for ongoing assessments and alteration to [...] Privileges] - (Follow-up with Neurology, may see RACE ENGINE BUILDER within 2-4 weeks of discharge.) Disposition Disposition (needs filled in before D/C Order can be placed): Long-Term Facility Charges/Coding Visit Charges Inpatient E&M: 52618 Disch Hosp >30min 12/26/24 1543 <Electronically signed by Shilpa Contreras MD> Cosigner Signature (if applicable): CC: Dr. Shilpa Contreras MD; Dr. Daija Morton MD~ Signed [facility] Work Phone: 1(901) 449-556207-10-2025 [facility]07-10-2025 Telephone encounter Note* Telephone Encounter - Anjel Braga APRN.CNP - 12/26/2024 3:13 PM EDT Admitted to hospital. Will review further at follow up. Anjel Braga APRN.CNP [facility]07-10-2025 Miscellaneous Notes* Telephone Encounter - Anjel Braga APRN.CNP - 12/26/2024 3:13 PM EDT Admitted to hospital. Will review further at follow up. Anjel Braga APRN.CNP [facility] Progress note Author [facility] Note Date/Time December 26, 2024 12:3 1pm [facility] Medical Records Department [address] [place] [address] Progress Note - Hospitalist 12/26/24 0700 MR#: [id number] Acct: [id number] Name: PEDRO PABLO SIERRA Rep #:[id number] : 1950 74 From: Shilpa Contreras MD PCP: Dr. Daija Morton MD Status:ADM I N Location: [address] Reason for Visit Reason for Visit: Diagnoses Cerebral infarction, unspecified (12/18/24) Facial weakness (12/18/24) Aphasia (12/18/24) Subjective Subjective Patient with no acute events overnight per nursing report. Blood pressure has vacillated but improved with initiation of low-dose hydralazine per PEG. Given continued clinical stability and at this point only awaiting shelter facility discussed with nursing staff and patient [...] Acute COPD Exacerbation who re-presents to the [facility] ED on 12/17/24 w/ severe dysarthria and [...] s/p PEG placement with following transition from NH ASA->eliquis,d/c IV keppra and resume liquid carbamazepine, [...] he had reported lacking healthcare power of prosecuting attorney and living will but had noted he would wanthis ex- Joseph be his medical decision-maker at that time if absolutely necessary. Full Code status. Charges/Coding Visit Charges Inpatient E&M: 72762 Subs Hosp L2 NIHSS NIHSS Nursing Documentation NIHSS Nursing Documentation: NIHSS: Ischemic Stroke/TIA Start: 12/17/24 18:52 Text: For PCU Patients: NIH and Neuro Check every 4 Status: Complete hours, PRN and with change in RN caregiver. Freq: Q12 Protocol: Activity Type Activity Date Activity User E-sign Co-sign Detail Recorded Client Recorded Date Recorded By Document 12/22/24 08:15 DS [id number] 12/22/24 08:19 DS 12/22/24 08:15 NIH Stroke [...] Cosigner Signature (if applicable): CC: ~ Signed [facility] Work Phone: 1(766) 785-317007-09-2025 Progress note Author Shilpa Contreras [facility] Note Date/Time December 25, 2024 1:49p m [facility] Medical Records Department [address] [place] [address] Progress Note - Hospitalist 12/25/24 0652 MR#: [id number] Acct: [id number] Name: PEDRO PABLO SIERRA Rep #:[id number] : 1950 74 From: Shilpa Contreras MD PCP: Dr. Daija Morton MD Status:ADM I N Location: [place] [address] Reason for Visit Reason for Visit: Diagnoses [...] 82.3 H, Lymph % (Auto) 8.0 L, Gonzales % (Auto) 8.4, Eos % (Auto) 0.3, [...] Acute COPD Exacerbation who re-presents to the [facility] ED on 12/17/24 w/ severe dysarthria and [...] s/p PEG placement with following transition from NH ASA->eliquis,d/c IV keppra and resume liquid carbamazepine, [...] he had reported lacking healthcare power of prosecuting attorney and living will but had noted he would wanthis ex- Joseph be his medical decision-maker at that time if absolutely necessary. Full Code status. Charges/Coding Visit Charges Inpatient E&M: 66767 Subs Hosp L2 NIHSS NIHSS Nursing Documentation NIHSS Nursing Documentation: NIHSS: Ischemic Stroke/TIA Start: 12/17/24 18:52 Text: For PCU Patients: NIH and Neuro Check every 4 Status: Complete hours, PRN and with change in RN caregiver. Freq: Q12 Protocol: Activity Type Activity Date Activity User E-sign Co-sign Detail Recorded Client Recorded Date Recorded By Document 12/22/24 08:15 DS [id number] 12/22/24 08:19 DS 12/22/24 08:15 NIH Stroke [...] Cosigner Signature (if applicable): CC: ~ Signed [facility] Work Phone: 1(774) 904-771007-08-2025 Progress note Author Paulino Friend [facility] Note Date/Time December 24, 2024 5:58p m [facility] Medical Records Department [address] [place] [address] Progress Note 12/24/24 782 MR#: [id number] Acct: [id number] Name: PEDRO PABLO SIERRA Rep #:[id number] : 1950 74 From: Paulino Henderson DO PCP: Dr. Daija Morton MD Status:ADM I N Location: [place] [address] Progress Note Patient is still tolerating PEG [...] and anticoagulation therapy. Visit Charges Inpatient E&M: 98962 Subs Hosp L2 12/24/24 0796 <Electronically signed by Paulino Henderson DO> Paulino Henderson DO Cosigner Signature (if applicable): CC: ~ Signed [facility] Work Phone: 1([phone]) 243-243407-08-2025 Discharge summary Author Shilpa Contreras [facility] Note Date/Time December 24, 2024 5:11p m [facility] Medical Records Department [address] [place] [address] Transfer to [facility] MR#: [id number] Acct: [id number] Name: PEDRO PABLO SIERRA Rep #:[id number] : 1950 74 From: Shilpa Contreras MD PCP: Dr. Daija Morton MD Status:ADM I N Certification of patient admission REQUIRED AT TIME OF ADMISSION. I CERTIFY THAT POST-HOSPITAL ECF SERVICES ARE REQUIRED TO BE GIVEN ON AN IN-PATIENT BASIS BECAUSE OF THE ABOVE NAMED PATIENT'S NEED FOR GROUP HOME CARE ON A CONTINUING BASIS FOR THE [...] Acute COPD Exacerbation who re-presents to the [facility] ED on 12/17/24 w/ severe dysarthria and [...] s/p PEG placement thus will transition from NH ASA->eliquis, d/c IV keppra and resume liquid [...] he had reported lacking healthcare power of prosecuting attorney and living will but had noted [...] advanced diet as tolerated to cardiac per SAWMILL OR TIMBER YARD WORKER recommendations. 2. Will order to start at [...] continued nutrition consultation and evaluation at the shelter facility for ongoing assessments and alteration to [...] Privileges] - (Follow-up with Neurology, may see RACE ENGINE BUILDER within 2-4 weeks of discharge.) Disposition Disposition (needs filled in before D/C Order can be placed): Long-Term Facility 12/24/24 1711 <Electronically signed by Shilpa Contreras MD> Cosigner Signature (if applicable): CC: Daylin Schmitt; Gogo Gill MD; Chrystal Collier MD; Dr. Paul Yang MD;Dr. Roman Patel DO; Dr. Aung Peres MD; Dr. Daija Morton MD; Dr. Ryan Vargas MD; Dr. Lisha Talamantes DO; Jo Hughes MD; Luan Mcgraw MD; DO Kerri; Angelo Wiley MD; Neelam Almendarez DO ~ [facility] Work Phone: 1(847) 969-698407-08-2025 Progress note Author [facility] Note Date/Time December 24, 2024 2:56p m [facility] Medical Records Department [address] [place] [address] Progress Note - Neurology 12/24/24 1451 MR#: [id number] Acct: [id number] Name: PEDRO PABLO SIERRA Rep #:[id number] : 1950 74 From: Maya Talamantes MD PCP: Dr. Daija Morton MD Status:ADM I N Location: [place] [address] Objective Data Objective Data Vital Signs: Vital [...] 82.4 H, Lymph % (Auto) 8.5 L, Gonzales % (Auto) 7.7, Eos % (Auto) 0.4, [...] on keppra, PVD, and CDwho presented to [facility] ED on 12/17/2024 with dysarthria and right-sided [...] bc patient does not cooperate- swats the automotive paint technician away. Neurological examination limited by decreased [...] Date Recorded By Document 12/22/24 08:15 DS [id number] 12/22/24 08:19 DS 12/22/24 08:15 NIH Stroke [...] Cosigner Signature (if applicable): CC: ~ Signed [facility] Work Phone: 1(163) 529-412307-08-2025 Progress note Author Shilpa Contreras [facility] Note Date/Time December 24, 2024 2:46p m [facility] Medical Records Department [address] [place] [address] Progress Note - Hospitalist 12/24/24705 MR#: [id number] Acct: [id number] Name: PEDRO PABLO SIERRA Rep #:[id number] : 1950 74 From: Shilpa Contreras MD PCP: Dr. Daija Morton MD Status:ADM I N Location: [place] [address] Reason for Visit Reason for Visit: Diagnoses [...] 82.4 H, Lymph % (Auto) 8.5 L, Gonzales % (Auto) 7.7, Eos % (Auto) 0.4, [...] Acute COPD Exacerbation who re-presents to the [facility] ED on 12/17/24 w/ severe dysarthria and [...] s/p PEG placement thus will transition from NH ASA->eliquis, d/c IV keppra and resume liquid carbamazepine,transition to HTN regimen per PEG, addback statin per PEG. Awaiting shelter facility placement pre-CERT for transition as clinically [...] he had reported lacking healthcare power of prosecuting attorney and living will but had noted he would wanthis ex- Joseph be his medical decision-maker at that time if absolutely necessary. Patient and daughter have been working with healthcare team closely and patient is maintained full code at this time. Charges/Coding Visit Charges Inpatient E&M: 20190 Subs Hosp L3 NIHSS NIHSS Nursing Documentation NIHSS Nursing Documentation: NIHSS: Ischemic Stroke/TIA Start: 12/17/24 18:52 Text: For PCU Patients: NIH and Neuro Check every 4 Status: Complete hours, PRN and with change in RN caregiver. Freq: Q12 Protocol: Activity Type Activity Date Activity User E-sign Co-sign Detail Recorded Client Recorded Date Recorded By Document 12/22/24 08:15 DS [id number] 12/22/24 08:19 DS 12/22/24 08:15 NIH Stroke [...] Cosigner Signature (if applicable): CC: ~ Signed [facility] Work Phone: 1(773) 501-897107-08-2025 Telephone encounter Note* Telephone Encounter - Daija Morton MD - 12/24/2024 2:09 PM EDT Noted. RegardsDaija MD [facility]07-08-2025 Miscellaneous Notes* Telephone Encounter - Daija Morton MD - 12/24/2024 2:09 PM EDT Noted. Daija Tripp MD * Telephone Encounter - Kelly Zelaya RN - 12/17/2024 2:20 PM EDT Frank REDD [place] [employer] called in to give an update [...] use. Kelly Zelaya RN [facility] Consult note Author Kyaw Borrego [facility] Note Date/Time December 23, 2024 3:51p [facility] Medical Records Department [address] [place] [address] Anesthesia Postop Eval II 12/23/24 1551 MR#: [id number] Acct: [id number] Name: PEDRO PABLO SIERRA Rep #:[id number] : 1950 74 From: Kyaw Borrego MD PCP: Dr. Daija Morton MD Status:ADM I N Y Race: C Location: [place] [address] 1-1 Anesthesia Postop Eval I Sum Postop Eval Completion status Anesthesia document: Postop Eval 1 completed: Yes Anesthesia Postop Eval I Summary Anesthesia Postop Eval I Summary: Anesthesia Postop Eval I: Assessment Summary Airway patent Yes 12/23/24 15:30 DIRECTOR SALES.CSIR Spontaneous unlabored Yes 12/23/24 15:30 DIRECTOR SALES.CSIR respirations Mental status nausea No 12/23/24 15:30 DIRECTOR SALES.CSIR Vomiting No 12/23/24 15:30 DIRECTOR SALES.CSIR Anesthesia Postop Eval I: Fluid Summary Crystalloid volume administer 200 12/23/24 15:30 DIRECTOR SALES.CSIR (ml) Colloids volume administered ( ml) Blood Product volume administered (ml) Total IV fluid infused 200 12/23/24 15:30 DIRECTOR SALES.CSIR Anesthesia Postop Eval I: Summary Notes Anesthesia Complication No 12/23/24 15:30 DIRECTOR SALES.CSIR Anesthesia Complication Comment: Post-operative progress note Anesthesia: Postop Eval II Evaluation Mental status: Awake Pain Level: 0 nausea: No Vomiting: No 12/23/24 1551 <Electronically signed by Kyaw Borrego MD > Date _ Kyaw Vanessa Signature: Date CC: ~ Signed [facility] Work Phone: 1(416) 419-316507-07-2025 Consult note Author [facility] Note Date/Time December 23, 2024 3:32p m [facility] Medical Records Department [address] [place] [address] Anesthesia Postop Eval I 12/23/24 1530 MR#: [id number] Acct: [id number] Name: PEDRO PABLO SIERRA Rep #:[id number] : 1950 74 From: Rocío Barrios CRNA PCP: Dr. Daija Morton MD Status:ADM I N Y Race: C Location: [place] [address] 1- Anesthesia: Postop Eval I Current Vital [...] 12/23/24 1532 <Electronically signed by Rocío smith DIRECTOR SALES> Date _ Rocío Barrios DIRECTOR SALES Cosigner Signature: Date CC: ~ Signed [facility] Work Phone: 1(842) 371-639807-07-2025 Progress note Author Shilpa Contreras [facility] Note Date/Time December 23, 2024 3:24p m [facility] Medical Records Department [address] [place] [address] Progress Note - Hospitalist 12/23/24 0719 MR#: [id number] Acct: [id number] Name: PEDRO PABLO SIERRA Rep #:[id number] : 1950 74 From: Shilpa Contreras MD PCP: Dr. Daija Morton MD Status:ADM I N Location: [place] [address] Reason for Visit Reason for Visit: Diagnoses [...] Acute COPD Exacerbation who re-presents to the [facility] ED on 12/17/24 w/ severe dysarthria and [...] Acute COPD Exacerbation who re-presents to the [facility] ED on 12/17/24 w/ severe dysarthria and [...] prophylaxis. Once patient requires PEG tube and shelter facility placement is pre-CERT obtained will transition [...] DVT prophylaxis: As noted currently maintained on NH aspirin therapy, planinitiation of Eliquis therapy following PEG tube placement likely 12/25/2019 5 AM. #17. CODE status: From previous discussions with patient he had reported lacking healthcare power of prosecuting attorney and living will but had noted he would wanthis ex- Joseph be his medical decision-maker at that time if absolutely necessary. Patient and daughter have been working with healthcare team closely and patient is maintained full code at this time. Charges/Coding Visit Charges Inpatient E&M: 78376 Subs Hosp L3 NIHSS NIHSS Nursing Documentation NIHSS Nursing Documentation: NIHSS: Ischemic Stroke/TIA Start: 12/17/24 18:52 Text: For PCU Patients: NIH and Neuro Check every 4 Status: Complete hours, PRN and with change in RN caregiver. Freq: Q12 Protocol: Activity Type Activity Date Activity User E-sign Co-sign Detail Recorded Client Recorded Date Recorded By Document 12/22/24 08:15 DS [id number] 12/22/24 08:19 DS 12/22/24 08:15 NIH Stroke [...] Cosigner Signature (if applicable): CC: ~ Signed [facility] Work Phone: 1(368) 229-592007-07-2025 Procedure [facility] 12-23-2024 Procedure [facility]07-07-2025 Progress note Author Paulino Henderson [facility] Note Date/Time December 23, 2024 2:46p m [facility] Medical Records Department [address] [place] [address] Progress Note 12/23/24 1445 MR#: [id number] Acct: [id number] Name: PEDRO PABLO SIERRA Rep #:[id number] : 1950 74 From: Paulino Henderson DO PCP: Dr. Daija Morton MD Status:ADM I N Location: [place] [address] Progress Note Patient with esophageal dysphagia. She [...] ASA of 3. Visit Charges Inpatient E&M: 75704 Subs Hosp L2 12/23/24 1446 <Electronically signed by Paulino Henderson DO> Paulino Friend DO Cosigner Signature (if applicable): CC: ~ Signed [facility] Work Phone: 1(225) 658-802107-07-2025 Consult note Author Kyaw Borrego [facility] Note Date/Time December 23, 2024 2:02p [facility] Medical Records Department [address] [place] [address] Pre-Anesthesia Evaluation 12/23/24 1400 MR#: [id number] Acct: [id number] Name: PEDRO PABLO SIERRA Rep #:[id number] : 1950 74 From: Kyaw Borrego MD PCP: Dr. Daija Morton MD Status:ADM I N Y Race: C Location: [place] [address] ASA Classification* ASA Classification ASA Classification: 3 [...] PEG placement. 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 - home health travel pt: Anesthesia History - home health travel pt Hx Hospitalization Yes 08/08/20 16:59 Any Problems [...] take am of surgery PONV PONV - home health travel pt: PONV - home health travel pt Female HX of Motion Sickness HX of N/V After Surgery Non-Smoker Duration of Surgery greater than 60 minutes Number of Risk Factors PONV Score Height & Weight Height & Weight: Anesthesia: Height & Weight Height 5 ft 8 in 12/23/24 09:50 Weight: 73 kg 12/23/24 09:50 Body Mass Index (BMI) 24.5 12/23/24 09:00 Respiratory Assessment Respiratory Assessment - home health travel pt: Respiratory Tract Infection Hx - home health travel pt Hx Respiratory Tract Infection No 12/23/24 09:15 STOP Sleep Apnea STOP Sleep Apnea - home health travel pt: STOP Sleep Apnea - home health travel pt Hx Hypertension Yes 12/23/24 09:06 Hx Sleep [...] Tobacco Use History Tobacco Use History - home health travel pt: Tobacco Use History - home health travel pt Tobacco Use Cigarettes 12/23/24 09:06 Smoking Status Current every day smoker 12/23/24 09:06 Hx Tobacco Use Yes 12/17/24 20:07 Years Smoking Packs Smoked per Day Smoking Cessation Date was within the last 15 years Hx Smoking Cessation Date Hx Smoking Cessation No 12/23/24 09:06 Counseling Hematologic Medial History Hematologic Hx - home health travel pt: 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 Specify any problems Hx of Preganancy in last 3 Months Nurse Filling Out Transfusion & Questions: Date: Time: Patient unable to answer at Yes 12/17/24 20:07 this time (ie. confused, unrespo /Reproduction History /Reproductive History - home health travel pt: /Reproductive Hx- home health travel pt Hx Now Gestational Age (in weeks): EDC: [...] mls @ 15 mls/hr 12/17/24 19:51 IV .I69A10M PRN Saline Flush Sodium Chloride 250 mls @ 15 mls/hr 12/17/24 19:51 IV .L36H71V PRN Additional IVPB Infusion Levetiracetam 1,000 mg in 100 mls @ 400 mls/hr 12/17/24 22:00 12/23/24 09:45 IV Infused Q12 LEON Infusion Pantoprazole Sodium 40 mg/ 100 mls @ 300 mls/hr 12/19/24 10:00 12/23/24 09:26 Sodium Chloride IV Infused Q24 LEON Infusion Lactated Ringer's 1,000 mls @ 75 mls/hr 12/18/24 15:30 12/23/24 13:10 IV 0 mls/hr .R05P43J LEON Infusion Thiamine HCl 250 mg/ Sodium [...] 40 Mg Tablet PO Not Given DAILY [facility] Senna/Docusate Sodium 1 tablet 12/17/24 18:52 Senna/Docusate Sodium 1 Tablet PO BID PRN PRN Constipation Sertraline HCl 100 mg 12/18/24 10:00 12/18/24 09:52 Sertraline 100 Mg Tablet PO Not Given DAILY [facility] Sodium Chloride 10 - 40 ml 12/17/24 19:51 12/23/24 13:09 0.9% Saline Lock 10 Ml Syringe IV 10 ml UD PRN Administration SALINE FLUSH Tamsulosin HCl 0.4 mg 12/18/24 22:00 Tamsulosin Hcl 0.4 Mg Capsule PO QHS [facility] Medical History Weakness Debility Failure to thrive [...] MD Cosigner Signature: Date CC: ~ Signed [facility] Work Phone: 1(726) 579-333207-07-2025 Hospital Discharge instructionsAdditional Instructions ADDITIONAL DISCHARGE INSTRUCTIONS/INFORMATION: [...] continued nutrition consultation and evaluation at the shelter facility for ongoing assessments and alteration to [...] which appears recent baseline. [facility]: [facility] Work Phone: 1(320) 252-328007-06-2025 Progress note Author Lisha Talamantes [facility] Note Date/Time December 22, 2024 3:35p m [facility] Medical Records Department [address] [place] [address] Progress Note - Hospitalist 12/22/24 1534 MR#: [id number] Acct: [id number] Name: PEDRO PABLO SIERRA R Rep #:[id number] : 1950 74 From: Lisha Talamantes DO PCP: Dr. Daija Morton MD Status:ADM I N Location: [place] [address] Hospitalist Note Extensive conversation with POA's at [...] Cosigner Signature (if applicable): CC: ~ Signed [facility] Work Phone: 1([phone]) 392-886407-06-2025 Progress note Author Lisha Talamantes [facility] Note Date/Time December 22, 2024 1:13p [facility] Medical Records Department [address] [place] [address] Progress Note - Hospitalist 12/22/24 0733 MR#: [id number] Acct: [id number] Name: PEDRO PABLO SIERRA R Rep #:[id number] : 1950 74 From: Lisha Talamantes DO PCP: Dr. Daija Morton MD Status:ADM I N Location: [place] [address] Reason for Visit Reason for Visit: facial [...] Full code Charges/Coding Visit Charges Inpatient E&M: 62951 Subs Hosp L2 NIHSS NIHSS Nursing Documentation NIHSS Nursing Documentation: NIHSS: Ischemic Stroke/TIA Start: 12/17/24 18:52 Text: For PCU Patients: NIH and Neuro Check every 4 Status: Active hours, PRN and with change in RN caregiver. Freq: Q12 Protocol: Activity Type Activity Date Activity User E-sign Co-sign Detail Recorded Client Recorded Date Recorded By Document 12/21/24 21:20 [id number] 12/21/24 21:19 12/21/24 21:20 NIH Stroke Scale [...] Cosigner Signature (if applicable): CC: ~ Signed [facility] Work Phone: 1(647) 327-294207-06-2025 Progress note Author Maya [facility] Note Date/Time December 22, 2024 9:18a m [facility] Medical Records Department [address] [place] [address] Progress Note - Neurology 12/22/24913 MR#: [id number] Acct: [id number] Name: PEDRO PABLO SIERRA Rep #:[id number] : 1950 74 From: Maya Talamantes MD PCP: Dr. Daija Morton MD Status:ADM I N Location: [place] [address] Objective Data Objective Data Vital Signs: Vital [...] on keppra, PVD, and CDwho presented to [facility] ED on 12/17/2024 with dysarthria and right-sided [...] Continue daily anti-platelet med (Asa) for now. 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 Daija Morton MD Status:ADM I N Location: [place] [address] Objective Data Objective Data Vital Signs: Vital [...] 75.1 H, Lymph % (Auto) 14.2 L, Gonzales % (Auto) 8.5, Eos % (Auto) 1.2, [...] on keppra, PVD, and CDwho presented to [facility] ED on 12/17/2024 with dysarthria and right-sided [...] Continue daily anti-platelet med (Asa) for now. alf will need AC for Afib stroke prevention [...] Date Recorded By Document 12/21/24 08:35 DS [id number] 12/21/24 11:09 DS 12/21/24 08:35 NIH Stroke [...] Cosigner Signature (if applicable): CC: ~ Signed [facility] Work Phone: 1(735) 802-215707-05-2025 Progress note Author Lisha Talamantes [facility] Note Date/Time December 21, 2024 1:11p m [facility] Medical Records Department [address] [place] [address] Progress Note - Hospitalist 12/21/24 1243 MR#: [id number] Acct: [id number] Name: PEDRO PABLO SIERRA Rep #:[id number] : 1950 74 From: Lisha Talamantes DO PCP: Dr. Daija Morton MD Status:ADM I N Location: [place] [address] Reason for Visit Reason for Visit: Aphasia/Facial [...] 75.1 H, Lymph % (Auto) 14.2 L, Gonzales % (Auto) 8.5, Eos % (Auto) 1.2, [...] Full code Charges/Coding Visit Charges Inpatient E&M: 60818 Subs Hosp L2 NIHSS NIHSS Nursing Documentation NIHSS Nursing Documentation: NIHSS: Ischemic Stroke/TIA Start: 12/17/24 18:52 Text: For PCU Patients: NIH and Neuro Check every 4 Status: Active hours, PRN and with change in RN caregiver. Freq: Q12 Protocol: Activity Type Activity Date Activity User E-sign Co-sign Detail Recorded Client Recorded Date Recorded By Document 12/21/24 08:35 DS [id number] 12/21/24 11:09 DS 12/21/24 08:35 NIH Stroke [...] Cosigner Signature (if applicable): CC: ~ Signed [facility] Work Phone: 1(992) 195-241707-04-2025 Progress note Author Lisha Talamantes [facility] Note Date/Time December 20, 2024 12:05 pm [facility] Medical Records Department [address] [place] [address] Progress Note - Hospitalist 12/20/24 0717 MR#: [id number] Acct: [id number] Name: PEDRO PABLO SIERRA Rep #:[id number] : 1950 74 From: Lisha Talamantes DO PCP: Dr. Daija Morton MD Status:ADM I N Location: [place] [address] Reason for Visit Reason for Visit: Difficulty [...] 79.1 H, Lymph % (Auto) 9.9 L, Gonzales % (Auto) 8.5, Eos % (Auto) 1.2, [...] in the right maxillary sinus. Reading Location: [facility] Physical Exam Const alert, no apparent [...] Full code Charges/Coding Visit Charges Inpatient E&M: 98463 Subs Hosp L2 NIHSS NIHSS Nursing Documentation NIHSS Nursing Documentation: NIHSS: Ischemic Stroke/TIA Start: 12/17/24 18:52 Text: For PCU Patients: NIH and Neuro Check every 4 Status: Active hours, PRN and with change in RN caregiver. Freq: [id number] Protocol: Activity Type Activity Date Activity User E-sign Co-sign Detail Recorded Client Recorded Date Recorded By Document 12/20/24 05:53 MB [id number] 12/20/24 05:55 MB 12/20/24 05:53 NIH Stroke [...] Cosigner Signature (if applicable): CC: ~ Signed [facility] Work Phone: 1(247) 525-537807-04-2025 Progress note Author [facility] Note Date/Time December 20, 2024 11:53 am [facility] Medical Records Department [address] [place] [address] Progress Note - Neurology 12/20/24 1107 MR#: [id number] Acct: [id number] Name: PEDRO PABLO SIERRA Rep #:[id number] : 1950 74 From: René Carson PCP: Dr. 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 No NGT. EEG Results Procedure Details EEG [...] is controlled. Would prefer a DOAC for fdc AC. I would recommend re-evaluation of candiacy for AC despite the fall risk as the patient has an high risk of future embolic events ([id number] 10, HASBLED 4). His risk of a [...] goal <7, BP goal is 120/80 -recommend PT/OT/SAWMILL OR TIMBER YARD WORKER consult. Will likely need PEG. consider NGT for alterative access in the meantime #seizure -recommend routine EEG as his aphasia does seen to be out of proportion to his infarct burden. would want to ensure no NCSE -it appears he was switched from CBZ to keppra during this admission. Ok to continue keppra senior care if tolerating without adverse effects or recurrent seizures. ] NIHSS NIHSS Nursing Documentation NIHSS Nursing Documentation: NIHSS: Ischemic Stroke/TIA Start: 12/17/24 18:52 Text: For PCU Patients: NIH and Neuro Check every 4 Status: Active hours, PRN and with change in RN caregiver. Freq: Q12 Protocol: Activity Type Activity Date Activity User E-sign Co-sign Detail Recorded Client Recorded Date Recorded By Document 12/20/24 09:41 [id number] 12/20/24 09:46 12/20/24 09:41 NIH Stroke Scale [...] Cosigner Signature (if applicable): cc: ~* Signed [facility] Work Phone: 1(403) 301-919407-03-2025 Progress note Author Lisha Talamantes [facility] Note Date/Time December 19, 2024 4:09p m [facility] Medical Records Department [address] [place] [address] Progress Note - Hospitalist 12/19/24 0810 MR#: [id number] Acct: [id number] Name: PEDRO PABLO SIERRA Rep #:[id number] : 1950 74 From: Lisha Talamantes DO PCP: Dr. Daija Morton MD Status:ADM I N Location: [place] [address] Reason for Visit Reason for Visit: Difficulty [...] 81.3 H, Lymph % (Auto) 9.0 L, Gonzales % (Auto) 6.6, Eos % (Auto) 1.9, [...] in the right maxillary sinus. [facility] Physical Exam Const alert, no apparent distress [...] Full code Charges/Coding Visit Charges Inpatient E&M: 64882 Subs Hosp L2 NIHSS NIHSS Nursing Documentation NIHSS Nursing Documentation: NIHSS: Ischemic Stroke/TIA Start: 12/17/24 18:52 Text: For PCU Patients: NIH and Neuro Check every 4 Status: Active hours, PRN and with change in RN caregiver. Freq: [id number] Protocol: Activity Type Activity Date Activity User E-sign Co-sign Detail Recorded Client Recorded Date Recorded By Document 12/19/24 07:15 [id number] 12/19/24 07:43 12/19/24 07:15 NIH Stroke Scale [...] Cosigner Signature (if applicable): CC: ~ Signed [facility] Work Phone: 1(416) 972-551207-02-2025 Progress note Author Lisha Talamantes [facility] Note Date/Time December 18, 2024 2:59p m [facility] Medical Records Department [address] [place] [address] Progress Note - Hospitalist 12/18/24 1445 MR#: [id number] Acct: [id number] Name: PEDRO PABLO SIERRA Shannan Rep #:[id number] : 1950 74 From: Lisha Talamantes DO PCP: Dr. Daija Morton MD Status:ADM I NO Location: [place] [address] Reason for Visit Reason for Visit: Diagnoses [...] (Auto) 77.5 H, Lymph % (Auto) 12.1 L,Gonzales % (Auto) 7.8, Eos % (Auto) 1.1, [...] as noted. Findings were called to the [facility] emergency department on 12/17/2024 at 4:35 p.m. Reading Location: [id number] Head/Neck CTA 12/17/24 15:53 IMPRESSION: Right ICA stenosis of 75%. Left ICA stenosis of 50%. Additional atherosclerosis as above. Biapical pulmonary scarring and emphysema. Reading Location: [id number] Chest X-Ray 12/17/24 15:54 IMPRESSION: Hyperaerated lungs which can suggest COPD. Stable scarring. Reading Location: [id number] Echocardiogram 12/18/24 07:27 Interpretation Summary Technically difficult [...] Full code Charges/Coding Visit Charges Inpatient E&M: 56239 Subs Hosp L2 NIHSS NIHSS Nursing Documentation NIHSS Nursing Documentation: NIHSS: Ischemic Stroke/TIA Start: 12/17/24 18:52 Text: For PCU Patients: NIH and Neuro Check every 4 Status: Active hours, PRN and with change in RN caregiver. Freq: [id number] Protocol: Activity Type Activity Date Activity User E-sign Co-sign Detail Recorded Client Recorded Date Recorded By Document 12/18/24 13:40 [id number] 12/18/24 13:43 12/18/24 13:40 NIH Stroke Scale [...] e [Total] -Coma Scale Total 12 12/18/24 2878 <Electronically signed by Lisha Talamantes DO> Cosigner Signature (if applicable): CC: ~ Signed [facility] Work Phone: 1(565) 954-689507-02-2025 Consult note Author Amy Chun [facility] Note Date/Time December 18, 2024 1:13p m [facility] Medical Records Department [address] [place] [address] Consultation - Neurology 12/18/24 1249 MR#: [id number] Acct: [id number] Name: PEDRO PABLO SIERRA Rep #:[id number] : 1950 74 From: Amy Chun MD PCP: Dr. Daija Morton MD Status:ADM I NO Location: [place] [address] 1 Assessment and Plan: Stroke Assessment/Plan PEDRO [...] HTN: Permissive HTN acutely and gradual normalization senior care Speech and swallow evaluation PT, OT evaluation Thanks for consult. Please call with questions HPI Consult Data Date of Consult: 12/18/24 HPI Narrative HPI Narrative: PEDRO PABLO SIERRA, is a 74 M who presents who presented to [facility] on 12/17/2024 with dysarthria and right-sided [...] stroke. Unfortunately, he was outside the window [facility]. He has history of A-fib and was [...] stenosis of 50%, no other acute findings. [facility] Medical History Weakness Debility Failure to thrive [...] (Auto) 77.5 H, Lymph % (Auto) 12.1 L,Gonzales % (Auto) 7.8, Eos % (Auto) 1.1, [...] as noted. Findings were called to the [facility] emergency department on 12/17/2024 at 4:35 p.m. Reading Location: [facility] Head/Neck CTA 12/17/24 15:53 IMPRESSION: Right ICA stenosis of 75%. Left ICA stenosis of 50%. Additional atherosclerosis as above. Biapical pulmonary scarring and emphysema. Reading Location: [id number] Chest X-Ray 12/17/24 15:54 IMPRESSION: Hyperaerated lungs which can suggest COPD. Stable scarring. Reading Location: [id number] Active Medications Active Medications Active Medications: Current [...] Tablet (1,000 Units) PO Not Given DAILY [facility] Clopidogrel Bisulfate 75 mg 12/18/24 10:00 12/18/24 09:52 Clopidogrel Bisulfate 75 Mg Tablet PO Not Given DAILY [facility] Finasteride 5 mg 12/18/24 10:00 12/18/24 09:52 Finasteride 5 Mg Tablet PO Not Given DAILY [facility] Gabapentin 100 mg 12/18/24 10:00 12/18/24 09:52 Gabapentin 100 Mg Capsule PO Not Given DAILY [facility] Hydralazine HCl 5 mg 12/17/24 18:52 Hydralazine 20 Mg/Ml Vial IV 12/18/24 18:52 Q30M PRN maintain BP parameters with HR <60 Sodium Chloride 250 mls @ 15 mls/hr 12/17/24 19:51 IV .P85O34H PRN Saline Flush Sodium Chloride 250 mls @ 15 mls/hr 12/17/24 19:51 IV .[id number] PRN Additional IVPB Infusion Levetiracetam 1,000 mg [...] 100 Mg Tablet PO Not Given DAILY [facility] Sodium Chloride 10 - 40 ml 12/17/24 19:51 12/18/24 10:33 0.9% Saline Lock 10 Ml Syringe IV 10 ml UD PRN Administration SALINE FLUSH Tamsulosin HCl 0.4 mg 12/18/24 22:00 Tamsulosin Hcl 0.4 Mg Capsule PO QHS [facility] NIHSS NIHSS Nursing Documentation NIHSS Nursing Documentation: NIHSS: Ischemic Stroke/TIA Start: 12/17/24 18:52 Text: For PCU Patients: NIH and Neuro Check every 4 Status: Active hours, PRN and with change in RN caregiver. Freq: [id number] Protocol: Activity Type Activity Date Activity User E-sign Co-sign Detail Recorded Client Recorded Date Recorded By Document 12/18/24 10:30 [id number] 12/18/24 10:48 12/18/24 10:30 NIH Stroke Scale [...] applicable): CC: Dr. Daija Morton MD~ Signed [facility] Work Phone: 1(516) 714-104807-01-2025 History and physical note Author Roman Patel [facility] Note Date/Time December 17, 2024 7:17p m [facility] Medical Records Department [address] [place] [address] H&P Exam - Hospitalist 12/17/24 3479 MR#: [id number] Acct: [id number] Name: PDERO PABLO SIERRA Rep #:[id number] : 1950 74 From: Roman randall DO PCP: Dr. Daija Morton MD Status:ADM I NO Location: [facility] [id number]- 1 HPI - General General Date of Admission: 12/17/24 Date of Service: 12/17/24 Chief Complaint: Dysarthria and right-sided facial droop HPI Narrative PEDRO PABLO SIERRA, is a 74 M who presented to [facility] ED on 12/17/2024 with dysarthria and right-sided [...] time. Will be admitted for further management. [facility] Medical History Weakness Debility Failure to thrive [...] History household members: family housing: other details: [employer] [facility] 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 Smoking Status: Current [...] (Auto) 77.5 H, Lymph % (Auto) 12.1 L,Gonzales % (Auto) 7.8, Eos % (Auto) 1.1, Baso % (Auto) 1.1 H, Absolute Neuts (auto) 6.6, Absolute Lymphs (auto) 1.03, Nucleated RBC % 0 Imaging Radiology Impression Brain CT 12/17/24 15:53 IMPRESSION: 1. Cerebral atrophy. 2. No evidence of acute intracranial pathology. 3. Other findings as noted. Findings were called to the [facility] emergency department on 12/17/2024 at 4:35 p.m. Reading Location: [id number] Head/Neck CTA 12/17/24 15:53 IMPRESSION: Right ICA stenosis of 75%. Left ICA stenosis of 50%. Additional atherosclerosis as above. Biapical pulmonary scarring and emphysema. Reading Location: [id number] Chest X-Ray 12/17/24 15:54 IMPRESSION: Hyperaerated lungs which can suggest COPD. Stable scarring. Reading Location: [id number] Assessment & Plan Assessment/Plan (1) Acute CVA (cerebrovascular accident): PLAN: Plan Patient is a 74-year-old male who presented to [facility] ED on 12/17/2024 with strokelike symptoms. 1. [...] 75 minutes. Charges/Coding Visit Charges Inpatient E&M: 68634 Init Hosp L3 12/17/241916 <Electronically signed by Roman Patel DO> Cosigner Signature (if applicable): CC: Dr. Roman Patel DO; Dr. Daija Morton MD~ Signed [facility] Work Phone: 1(735) 393-394907-01-2025 Discharge summary Author Seth [facility] Note Date/Time December 17, 2024 5:41p m [facility] Medical Records Department [address] [place] [address] Emergency Department Summary 12/17/24 MR#: [id number] Acct: [id number] Name: PEDRO PABLO SIERRA Rep #:[id number] : 1950 74 From: Seth Pritchard DO [...] 77.5 H Lymph % (Auto) 12.1 L Gonzales % (Auto) 7.8 Eos % (Auto) 1.1 Baso % (Auto) 1.1 H Absolute Neuts (auto) 6.6 Absolute Lymphs (auto) 1.03 Nucleated RBC % 0 Radiography Diagnostic Testing: Clinical Impression(s) from Imaging Studies Brain CT 12/17/24 15:53 IMPRESSION: 1. Cerebral atrophy. 2. No evidence of acute intracranial pathology. 3. Other findings as noted. Findings were called to the [facility] emergency department on 12/17/2024 at 4:35 p.m. Reading Location: [id number] Head/Neck CTA 12/17/24 15:53 IMPRESSION: Right ICA stenosis of 75%. Left ICA stenosis of 50%. Additional atherosclerosis as above. Biapical pulmonary scarring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 reconciliation done. Discharge follow-up instructions [...] in before D/C Order can be placed): Long-Term Facility Charges/Coding Visit Charges Inpatient E&M: 28719 Disch Hosp >30min 09/02/24 1509 Cosigner Signature (if applicable): CC: Dr. Daija Morton MD; Dr. Brody Maynard MD~ Signed [facility]03-17-[address] [facility] Discharge summary [facility] Medical Records Department [address] [place] [address] Transfer to [facility] MR#: [id number] Acct: [id number] Name: PEDRO PABLO SIERRA Rep #:[id number] : 1950 74 From: Brody Carson PCP: Dr. Daija Morton MD Status:ADM I N Certification of patient admission REQUIRED AT TIME OF ADMISSION. I CERTIFY THAT POST-HOSPITAL ECF SERVICES ARE REQUIRED TO BE GIVEN ON AN IN-PATIENT BASIS BECAUSE OF THE ABOVE NAMED PATIENT'S NEED FOR GROUP HOME CARE ON A CONTINUING BASIS FOR THE [...] to thrive -Patient recently had been at [facility] and was discharged 08/20/2024 buthas been [...] and DC plan in place -08/30: Awaiting [facility] and [facility] determinations about payee so that patient can be placedat [facility], further dispo pending this -08/31: Patient [...] in before D/C Order can be placed): Long-Term Facility 09/02/24 1458 Cosigner Signature (if applicable): CC: Dr. Daija Morton MD; Dr. Lisha Talamantes DO; Dr. Celia Toribio MD; Dr. Ashley MD ~ [facility]03-17-2025 Progress note [facility] Medical Records Department [address] [place] [address] Progress Note - Infect Disease 09/02/241424 MR#: [id number] Acct: [id number] Name: ARIEL SIERRAJAYY Pierce Rep #:[id number] : 1950 74 From: Elton pierce MD PCP: Dr. Daija Morton MD Status:ADM I N Location: [place] [address] Physical Exam Narrative C/o some dysuria. No [...] Cosigner Signature (if applicable): CC: ~ Signed [facility]03-16-2025 Progress note Author Celia Toribio [facility] Note Date/Time September 01, 2024 11: 27am [facility] Medical Records Department [address] [place] [address] Progress Note - Hospitalist 09/01/24 0758 MR#: [id number] Acct: [id number] Name: PEDRO PABLO SIERRA Rep #:[id number] : 1950 74 From: Celia Toribio MD PCP: Dr. Daija Morton MD Status:ADM I N Location: [place] RF630-7 Reason for Visit Reason for Visit: Diagnoses [...] (Auto) 70.9 H, Lymph % (Auto) 20.9, Gonzales % (Auto) 6.2, Eos % (Auto) 0.4, [...] to thrive -Patient recently had been at [facility] and was discharged 08/20/2024 buthas been having diarrhea since that time -May be due to diarrhea but cannot say definitively, checking UA -PT/OT -08/27: UA ordered, yet to be collected, will follow-up, continue to work with physical therapy, case management social work following -08/28: Patient now agreeable to placement, placement avenues been pursued -08/29: Patient pending acceptance and pre-CERT for [facility], patient stable and willbe cleared for discharge once antibiotic and DC plan in place -08/30: Awaiting [facility] and [facility] determinations about payee so that patient can be placed at [facility], further dispo pending this -08/31: Patient [...] Toribio MD Charges/Coding Visit Charges Inpatient E&M: 15681 Subs Hosp L1 09/01/24 1127 <Electronically signed by Celia Toribio MD> Cosigner Signature (if applicable): CC: ~ Signed [facility] Work Phone: 1(500) [phone] Progress note [facility] Medical Records Department [address] [place] [address] Progress Note - Hospitalist 09/01/24 0758 MR#: [id number] Acct: [id number] Name: PEDRO PABLO SIERRA Rep #:[id number] : 1950 74 From: Celia Toribio MD PCP: Dr. Daija Morton MD Status:ADM I N Location: [place] [address]-1 Reason for Visit Reason for Visit: Diagnoses [...] %(Auto) 70.9 H, Lymph % (Auto) 20.9, Gonzales % (Auto) 6.2, Eos % (Auto) 0.4, [...] to thrive -Patient recently had been at [facility] and was discharged 08/20/2024 buthas been having diarrhea since that time -May be due to diarrhea but cannot say definitively, checking UA -PT/OT -08/27: UA ordered, yet to be collected, will follow-up, continue to work with physical therapy, case management social work following -08/28: Patient now agreeable to placement, placement avenues been pursued -08/29: Patient pending acceptance and pre-CERT for [facility], patient stable and willbe cleared for discharge once antibiotic and DC plan in place -08/30: Awaiting [facility] and [facility] determinations about payee so that patient can be placedat [facility], further dispo pending this -08/31: Patient [...] Toribio MD Charges/Coding Visit Charges Inpatient E&M: 10904 Subs Hosp L1 09/01/24 1127 Cosigner Signature (if applicable): CC: ~ Signed [facility]03-15-2025 Progress note Author Celia Toribio [facility] Note Date/Time August 31, 2024 12: 30pm [facility] Medical Records Department [address] [place] [address] Progress Note - Hospitalist 08/31/24 0748 MR#: [id number] Acct: [id number] Name: PEDRO PABLO SIERRA Rep #:[id number] : 1950 74 From: Celia Toribio MD PCP: Dr. Daija Morton MD Status:ADM I N Location: [place] CW916-4 Reason for Visit Reason for Visit: Diagnoses [...] to thrive -Patient recently had been at [facility] and was discharged 08/20/2024 buthas been [...] and DC plan in place -08/30: Awaiting [facility] and [facility] determinations about payee so that patient can be placed at [facility], further dispo pending this -08/31: Patient [...] documentation, 36minutes Charges/Coding Visit Charges Inpatient E&M: 39427 Subs Hosp L2 08/31/24 1230 <Electronically signed by Celia Toribio MD> Cosigner Signature (if applicable): CC: ~ Signed [facility] Work Phone: 1(160) 320-527003-15-2025 Progress note [facility] Medical Records Department [address] [place] [address] Progress Note - Hospitalist 08/31/24 3048 MR#: [id number] Acct: [id number] Name: ARIEL SIERRAJAYY Pierce Rep #:[id number] : 1950 74 From: Celia Toribio MD PCP: Dr. Daija Morton MD Status:ADM I N Location: [place] ZO611-7 Reason for Visit Reason for Visit: Diagnoses [...] to thrive -Patient recently had been at [facility] and was discharged 08/20/2024 buthas been [...] and DC plan in place -08/30: Awaiting [facility] and [facility] determinations about payee so that patient can be placedat [facility], further dispo pending this -08/31: Patient [...] documentation, 36minutes Charges/Coding Visit Charges Inpatient E&M: 04550 Subs Hosp L2 08/31/24 1230 Cosigner Signature (if applicable): CC: ~ Signed [facility]03-14-2025 Consult note Author Elton Moore [facility] Note Date/Time August 30, 2024 1:4 6pm [facility] Medical Records Department [address] [place] [address] Consultation - Infectious Dx 08/30/24 1343 MR#: [id number] Acct: [id number] Name: PEDRO PABLO SIERRA Rep #:[id number] : 1950 74 From: Elton pierce MD PCP: Dr. Daija Morton MD Status:ADM I N Location: [place] [address]-1 Assessment & Plan Assessment/Plan (1) Weakness: (2) [...] performed and neg except as noted above. [facility] Medical History Compression fx, lumbar spine Hypertension [...] (Auto) 64.8, Lymph % (Auto) 17.8 L, Gonzales % (Auto) 7.6, Eos % (Auto) 7.8 [...] applicable): CC: Dr. Daija Morton MD~ Signed [facility] Work Phone: [phone]) [phone] Consult note [facility] Medical Records Department [address] [place] [address] Consultation - Infectious Dx 08/30/24 1343 MR#: [id number] Acct: [id number] Name: PEDRO PABLO SIERRA Rep #:[id number] : 1950 74 From: Elton pierce MD PCP: Dr. Daija Morton MD Status:ADM I N Location: [place] [address] Assessment & Plan Assessment/Plan (1) Weakness: (2) [...] Reason for Consultation: esbl infection HPI Narrative: EPDRO PABLO SIERRA, is a 74 M with h/o compression fracture of L-spine, htn, afib, presented 3/ with several days weakness, unable to care for himself at home. Had been having some diarrhea, not feeling well. Some dry cough. No dysuria orurine changes. Now on zosyn for (+) ucx. Feeling ok today. Full ROS performed and neg except as noted above. [facility] Medical History Compression fx, lumbar spine Hypertension [...] %(Auto) 64.8, Lymph % (Auto) 17.8 L, Gonzales % (Auto) 7.6, Eos % (Auto) 7.8 [...] applicable): CC: Dr. Daija Morton MD~ Signed [facility]03-14-2025 Progress note Author Celia Toribio [facility] Note Date/Time August 30, 2024 11: 11am [facility] Medical Records Department [address] [place] [address] Progress Note - Hospitalist 08/30/24 0709 MR#: [id number] Acct: [id number] Name: PEDRO PABLO SIERRA Rep #:[id number] : 1950 74 From: Celia Toribio MD PCP: Dr. Daija Morton MD Status:ADM I N Location: [place] [address]1 Reason for Visit Reason for Visit: Diagnoses [...] (Auto) 64.8, Lymph % (Auto) 17.8 L, Gonzales % (Auto) 7.6, Eos % (Auto) 7.8 [...] to thrive -Patient recently had been at [facility] and was discharged 08/20/2024 buthas been having diarrhea since that time -May be due to diarrhea but cannot say definitively, checking UA -PT/OT -08/27: UA ordered, yet to be collected, will follow-up, continue to work with physical therapy, case management social work following -08/28: Patient now agreeable to placement, placement avenues been pursued -08/29: Patient pending acceptance and pre-CERT for [facility], patient stable and willbe cleared for discharge once antibiotic and DC plan in place -08/30: Awaiting [facility] and [facility] determinations about payee so that patient can be placed at [facility], further dispo pending this # Urinary [...] documentation, 36minutes Charges/Coding Visit Charges Inpatient E&M: 99710 Subs Hosp L2 08/30/24 1111 <Electronically signed by Celia Toribio MD> Cosigner Signature (if applicable): CC: ~ Signed [facility] Work Phone: [phone]) 311-436603-14-2025 Progress note [facility] Medical Records Department [address] [place] [address] Progress Note - Hospitalist 08/30/24708 MR#: [id number] Acct: [id number] Name: PEDRO PABLO SIERRA Rep #:[id number] : 1950 74 From: Celia Toribio MD PCP: Dr. Daija Morton MD Status:ADM I N Location: [facility] UB258-1 Reason for Visit Reason for Visit: Diagnoses [...] %(Auto) 64.8, Lymph % (Auto) 17.8 L, Gonzales % (Auto) 7.6, Eos % (Auto) 7.8 [...] to thrive -Patient recently had been at [facility] and was discharged 08/20/2024 buthas been having diarrhea since that time -May be due to diarrhea but cannot say definitively, checking UA -PT/OT -08/27: UA ordered, yet to be collected, will follow-up, continue to work with physical therapy, case management social work following -08/28: Patient now agreeable to placement, placement avenues been pursued -08/29: Patient pending acceptance and pre-CERT for [facility], patient stable and willbe cleared for discharge once antibiotic and DC plan in place -08/30: Awaiting [facility] and [facility] determinations about payee so that patient can be placedat [facility], further dispo pending this # Urinary [...] documentation, 36minutes Charges/Coding Visit Charges Inpatient E&M: 47086 Subs Hosp L2 08/30/24 1111 Cosigner Signature (if applicable): CC: ~ Signed [facility]03-13-2025 Progress note Author Celia Toribio [facility] Note Date/Time August 29, 2024 5:2 5pm [facility] Medical Records Department [address] [place] [address] Progress Note - Hospitalist 08/29/24 0805 MR#: [id number] Acct: [id number] Name: PEDRO PABLO SIERRA Rep #:[id number] : 1950 74 From: Celia Toribio MD PCP: Dr. Daija Morton MD Status:ADM I N Location: [place] [address] Reason for Visit Reason for Visit: Diagnoses [...] % (Auto) 59.8, Lymph % (Auto) 22.3, Gonzales % (Auto) 8.0, Eos % (Auto) 8.2 [...] to thrive -Patient recently had been at [facility] and was discharged 08/20/2024 buthas been [...] documentation, 35minutes Charges/Coding Visit Charges Inpatient E&M: 18165 Subs Hosp L2 08/29/24 1725 <Electronically signed by Celia Toribio MD> Cosigner Signature (if applicable): CC: ~ Signed [facility] Work Phone: 1([phone]) 337-384403-13-2025 Progress note [facility] Medical Records Department [address] [place] [address] Progress Note - Hospitalist 08/29/24 0805 MR#: [id number] Acct: [id number] Name: PEDRO PABLO SIERRA Rep #:[id number] : 1950 74 From: Celia Toribio MD PCP: Dr. Daija Morton MD Status:ADM I N Location: [place] OT278-9 Reason for Visit Reason for Visit: Diagnoses [...] % (Auto) 59.8, Lymph % (Auto) 22.3, Gonzales % (Auto) 8.0, Eos % (Auto) 8.2 [...] to thrive -Patient recently had been at [facility] and was discharged 08/20/2024 buthas been [...] documentation, 35minutes Charges/Coding Visit Charges Inpatient E&M: 62476 Subs Hosp L2 08/29/24 1725 Cosigner Signature (if applicable): CC: ~ Signed [facility]03-12-2025 Progress note Author Celia Toribio [facility] Note Date/Time August 28, 2024 3:0 4pm [facility] Medical Records Department [address] [place] [address] Progress Note - Hospitalist 08/28/24 1458 MR#: [id number] Acct: [id number] Name: PEDRO PABLO SIERRA Rep #:[id number] : 1950 74 From: Celia Toribio MD PCP: Dr. Daija Morton MD Status:ADM I N Location: [place] PW696-7 Reason for Visit Reason for Visit: Diagnoses [...] % (Auto) 55.6, Lymph % (Auto) 23.4, Gonzales % (Auto) 11.3 H, Eos % (Auto) [...] to thrive -Patient recently had been at [facility] and was discharged 08/20/2024 buthas been [...] documentation, 35minutes Charges/Coding Visit Charges Inpatient E&M: 30822 Subs Hosp L2 08/28/24 1504 <Electronically signed by Celia Toribio MD> Cosigner Signature (if applicable): CC: ~ Signed [facility] Work Phone: 1(858) 350-162603-12-2025 Progress note [facility] Medical Records Department [address] [place] [address] Progress Note - Hospitalist 08/28/24 1685 MR#: [id number] Acct: [id number] Name: PEDRO PABLO SIERRA Rep #:[id number] : 1950 74 From: Celia Toribio MD PCP: Dr. Daija Morton MD Status:ADM I N Location: [facility] GU554-5 Reason for Visit Reason for Visit: Diagnoses [...] % (Auto) 55.6, Lymph % (Auto) 23.4, Gonzales % (Auto) 11.3 H, Eos % (Auto) [...] to thrive -Patient recently had been at [facility] and was discharged 08/20/2024 buthas been [...] home medications #GERD -Continue PPI #DVT ppx: [facility] [place] [place] Celia Toribio MD Time spent in the patient's overall evaluation,decision-making process, review of diagnostic data, adjustment of management, discussion with other providers, nursing nursing and ancillary staff involved in patient's care documentation, 35minutes Charges/Coding Visit Charges Inpatient E&M: 23375 Subs Hosp L2 08/28/24 1507 Cosigner Signature (if applicable): CC: ~ Signed [facility]03-11-2025 Evaluation note* Diagnosis Onset Date Resolution Status Admit Date Acute diarrhea acute August 6:22pm Debility acute August 27 6:22pm Weakness acute August 27 6:22pm 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 August 172024 6:22pm [facility] Work Phone: 1([phone]) 930-226003-11-2025 Evaluation note* Diagnosis Onset Date Resolution Status Admit Date Acute diarrhea resolved August 6:22pm Debility inactive August 27 6:22pm Failure to thrive inactive August 172024 6:22pm Weakness inactive August 27 6:22pm [facility] Work Phone: 1(556) 265-994703-11-2025 Evaluation note* Diagnosis Onset Date Resolution Status Admit Date Acute diarrhea resolved August 6:22pm Debility inactive August 27 6:22pm Failure to thrive inactive August 172024 6:22pm Weakness inactive August 27 6:22pm COPD exacerbation chronic December 132024 8:07pm [facility] Work Phone: 1(513) 998-485103-11-2025 Evaluation note* Diagnosis Onset Date Resolution Status Admit Date Acute diarrhea resolved August 6:22pm Debility inactive August 27 6:22pm Failure to thrive inactive August 172024 6:22pm Weakness inactive August 27 6:22pm Acute on chronic respiratory failure with hypoxia and hypercapnia chronic December 13, 2024 8:07pm COPD exacerbation chronic December 132024 8:07pm [facility] Work Phone: [phone] 808-271703-11-2025 Evaluation note* Diagnosis Onset Date Resolution Status [...] December 5:51pm Hypertension chronic December 17 5:51pm [facility] Work Phone: [phone]) [phone] Evaluation note* Diagnosis Onset Date Resolution Status [...] 2 :58pm COPD exacerbation resolved December 2:58pm [facility] Work Phone: 1(523) 405-281103-11-2025 Progress note Author Celia Toribio [facility] Note Date/Time August 27, 2024 4:1 3pm [facility] Medical Records Department [address] [place] [address] Progress Note - Hospitalist 08/27/241612 MR#: [id number] Acct: [id number] Name: PEDRO PABLO SIERRA R Rep #:[id number] : 1950 74 From: Celia Toribio MD PCP: Dr. Daija Morton MD Status:ADM I NO Location: [place] [address] Hospitalist Note Repeat hemoglobin actually improved, suspect that this was then margin of bladder, will DC FOBT 08/27/241612 <Electronically signed by Celia Toribio MD> Cosigner Signature (if applicable): CC: ~ Signed [facility] Work Phone: 1(890) 953-527303-11-2025 Progress note [facility] Medical Records Department [address] [place] [address] Progress Note - Hospitalist 08/27/241612 MR#: [id number] Acct: [id number] Name: PEDRO PABLO SIERRA R Rep #:[id number] : 1950 74 From: Celia Toribio MD PCP: Dr. Daija Morton MD Status:ADM I NO Location: [place] [address] Hospitalist Note Repeat hemoglobin actually improved, suspect that this was then margin of bladder, will DC FOBT 08/27/241612 Cosigner Signature (if applicable): CC: ~ Signed [facility]03-11-2025 Progress note Author Celia [facility] Note Date/Time August 27, 2024 1:3 2pm [facility] Medical Records Department [address] [place] [address] Progress Note - Hospitalist 08/27/24 1332 MR#: [id number] Acct: [id number] Name: PEDRO PABLO SIERRA R Rep #:[id number] : 1950 74 From: Celia Toribio MD PCP: Dr. Daija Morton MD Status:ADM I NO Location: [place] [address] Hospitalist Note UA abnormal and is suggestive of UTI and given this and patient suprapubic tenderness we will start patient on Rocephin and await urine culture 08/27/24 133 <Electronically signed by Celia Toribio MD> Cosigner Signature (if applicable): CC: ~ Signed [facility] Work Phone: 1([phone]) 564-934603-11-2025 Progress note Author Celia Toribio [facility] Note Date/Time August 27, 2024 12: 52pm [facility] Medical Records Department [address] [place] [address] Progress Note - Hospitalist 08/27/24 0831 MR#: [id number] Acct: [id number] Name: PEDRO PABLO SIERRA R Rep #:[id number] : 1950 74 From: Celia Toribio MD PCP: Dr. Daija Morton MD Status:ADM I NO Location: [place] [address] Reason for Visit Reason for Visit: Diagnoses [...] Neut % (Auto) 56.2, Lymph % (Auto) 23.0,Gonzales % (Auto) 13.1 H, Eos % (Auto) [...] to thrive -Patient recently had been at [facility] and was discharged 08/20/2024 buthas been [...] documentation, 36minutes Charges/Coding Visit Charges Inpatient E&M: 43716 Subs Hosp L2 08/27/24 1252 <Electronically signed by Celia Toribio MD> Cosigner Signature (if applicable): CC: ~ Signed [facility] Work Phone: 1(690) [phone] Progress note [facility] Medical Records Department [address] [place] [address] Progress Note - Hospitalist 08/27/241331 MR#: [id number] Acct: [id number] Name: PEDRO PABLO SIERRA Rep #:[id number] : 1950 74 From: Celia Toribio MD PCP: Dr. Daija Morton MD Status:ADM I NO Location: [place] [address] Hospitalist Note UA abnormal and is suggestive of UTI and given this and patient suprapubic tenderness we will startpatient on Rocephin and await urine culture 08/27/241331 Cosigner Signature (if applicable): CC: ~ Signed [facility]03-11-2025 Progress note [facility] Medical Records Department [address] [place] [address] Progress Note - Hospitalist 08/27/24 0831 MR#: [id number] Acct: [id number] Name: PEDRO PABLO SIERRA R Rep #:[id number] : 1950 74 From: Celia Toribio MD PCP: Dr. Daija Morton MD Status:ADM I NO Location: [place] ZG616-9 Reason for Visit Reason for Visit: Diagnoses [...] Neut % (Auto) 56.2, Lymph % (Auto) 23.0,Gonzales % (Auto) 13.1 H, Eos % (Auto) [...] to thrive -Patient recently had been at [facility] and was discharged 08/20/2024 buthas been [...] documentation, 36minutes Charges/Coding Visit Charges Inpatient E&M: 71326 Subs Hosp L2 08/27/24 1252 Cosigner Signature (if applicable): CC: ~ Signed [facility]03-10-2025 Progress note Author Celia Toribio [facility] Note Date/Time August 26, 2024 4:5 4pm [facility] Medical Records Department [address] [place] [address] Progress Note - Hospitalist 08/26/24 0907 MR#: [id number] Acct: [id number] Name: PEDRO PABLO SIERRA Rep #:[id number] : 1950 74 From: Celia Toribio MD PCP: Dr. Daija Morton MD Status:ADM I NO Location: [place] VP428-6 Reason for Visit Reason for Visit: Diagnoses [...] 78.4 H, Lymph % (Auto) 10.3 L, Gonzales % (Auto) 9.9, Eos % (Auto) 0.3, [...] % (Auto) 60.3, Lymph % (Auto) 19.8, Gonzales% (Auto) 15.2 H, Eos % (Auto) 3.4, [...] IMPRESSION: No acute airspace abnormality. Reading Location: [facility] Physical Exam Narrative General: Alert, [...] to thrive -Patient recently had been at [facility] and was discharged 08/20/2024 buthas been [...] Toribio MD Charges/Coding Visit Charges Inpatient E&M: 89120 Subs Hosp L2 08/26/24 1654 <Electronically signed by Celia Toribio MD> Cosigner Signature (if applicable): CC: ~ Signed [facility] Work Phone: 1(632) 290-264303-10-2025 Progress note [facility] Medical Records Department [address] [place] [address] Progress Note - Hospitalist 08/26/24 09 MR#: [id number] Acct: [id number] Name: PEDRO PABLO SIERRA Rep #:[id number] : 1950 74 From: Celia Toribio MD PCP: Dr. Daija Morton MD Status:ADM I NO Location: MS3 CB551-9 Reason for Visit Reason for Visit: Diagnoses [...] 78.4 H, Lymph % (Auto) 10.3 L, Gonzales % (Auto) 9.9, Eos % (Auto) 0.3, [...] Neut %(Auto) 60.3, Lymph % (Auto) 19.8, Gonzales% (Auto) 15.2 H, Eos % (Auto) 3.4, [...] IMPRESSION: No acute airspace abnormality. Reading Location: [facility] Physical Exam Narrative General: Alert, [...] to thrive -Patient recently had been at [facility] and was discharged 08/20/2024 buthas been [...] Toribio MD Charges/Coding Visit Charges Inpatient E&M: 99741 Subs Hosp L2 08/26/24 1652 Cosigner Signature (if applicable): CC: ~ Signed [facility]03-09-2025 History and physical note Author Lisha Talamantes [facility] Note Date/Time August 25, 2024 7:00 pm [facility] Medical Records Department [address] [place] [address] H&P Exam - Hospitalist 08/25/24 1820 MR#: [id number] Acct: [id number] Name: PEDRO PABLO SIERRA Rep #:[id number] : 1950 74 From: Lisha Talamantes DO PCP: Dr. Daija Morton MD Status:ADM I NO Location: [place]3 CL603-0 HPI - General General Date of Admission: 08/25/24 Date of Service: 08/25/24 Chief Complaint: Diarrhea/generalized weakness HPI Narrative PEDRO PABLO SIERRA, is a 74 M who presented to the emergency department [facility] on 08/25/2024 with a chief complaint of generalized weakness and diarrhea. Patient had recently been at [facility] and was discharged about 5 days [...] Chest x-ray is unremarkable for acute findings. [facility] Medical History Compression fx, lumbar spine Hypertension [...] 78.4 H, Lymph % (Auto) 10.3 L, Gonzales % (Auto) 9.9, Eos % (Auto) 0.3, [...] IMPRESSION: No acute airspace abnormality. Reading [facility] Assessment & Plan Assessment/Plan (1) Acute diarrhea: [...] the current livingenvironment -Was recently discharged from [facility] however patient wasadamant that he did [...] need clarified Charges/Coding Visit Charges Inpatient E&M: 55530 Init Hosp L2 08/25/24 1900 <Electronically signed by Lisha Talamantes DO> Cosigner Signature (if applicable): CC: Dr. Daija Morton MD; Dr. Lisha Talamantes DO~ Signed [facility] Work Phone: 1(214) 851-276603-09-2025 Discharge summary Author Jaden Jauregui [facility] Note Date/Time August 25, 2024 6:15 pm [facility] Medical Records Department [address] [place] [address] Emergency Department Summary 08/25/24 MR#: [id number] Acct: [id number] Name: PEDRO PABLO SIERRA Rep #:[id number] : 1950 74 From: Jaden Jauregui MD [...] patient'sarrival, apparently he has been in a skilled nursing [facility] when he arrived home 5 days ago, he was having diarrhea when he got home, patient stateshe was having it before he left the skilled nursing as well, and he has been havingdiarrhea [...] 78.4 H Lymph % (Auto) 10.3 L Gonzales % (Auto) 9.9 Eos % (Auto) 0.3 [...] Acute diarrhea, Mild dehydration Disposition Disposition: [facility] What to do if you have Problems For any increased pain, shortness of breath, bleeding, nausea or vomiting, chestpain, or any unexpected problems, contact your Primary Care Provider.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 Medical Records Department [address] [place] [address] Progress Note - Hospitalist 08/01/23 1531 MR#: [id number] Acct: [id number] Name: PEDRO PABLO SIERRA Rep #:[id number] : 1950 73 From: Ryan Guerin DO PCP: Dr. Daija Morton MD Status:ADM I N Location: ICU [place] [address] Reason for Visit Reason for Visit: Diagnoses [...] will need precertification to return to his shelter facility. Objective Data Objective Data Vital Signs: [...] 25 minutes Charges/Coding Visit Charges Inpatient E&M: 77052 Subs Hosp L1 08/01/23 1534 <Electronically signed by Ryan Guerin DO> Cosigner Signature (if applicable): CC: ~ Signed [facility] Work Phone: 1(581) 447-820802-12-2024 Progress note Author Ryan Guerin [facility] July 31, 2023 5:02pm Note Date/Time July 31, 2023 4:57pm [facility] Medical Records Department [address] [place] [address] Progress Note - Hospitalist 07/31/23 1655 MR#: [id number] Acct: [id number] Name: PEDRO PABLO SIERRA Rep #:[id number] : 1950 73 From: Ryan Guerin DO [...] 76.5 H, Lymph % (Auto) 10.9 L, Gonzales % (Auto) 10.7 H, Eos % (Auto) [...] Clarity Clear, Urine pH 7.0, Ur Specific Fessenden 1.010, Urine Protein 30 H, Urine Glucose [...] 85.0 H, Lymph % (Auto) 7.1 L, Gonzales % (Auto) 7.1, Eos % (Auto) 0.0, [...] 35 minutes Charges/Coding Visit Charges Inpatient E&M: 12432 Subs Hosp L2 07/31/23 1702 <Electronically signed by Ryan Guerin DO> Cosigner Signature (if applicable): CC: ~ Signed [facility] Work Phone: 1(232) 207-837302-12-2024 History and physical note Author Brody Maynard [facility] July 31, 2023 1:01am Note Date/Time July 30, 2023 11:50pm [facility] Medical Records Department [address] [place] [address] H&P Exam - Hospitalist 07/30/23 2347 MR#: [id number] Acct: [id number] Name: PEDRO PABLO SIERRA Rep #:[id number] : 1950 73 From: Brody Carson PCP: Dr. Daija Morton MD Status:ADM I N [facility] - General General Date of Admission: 07/30/23 Date of Service: 07/30/23 Chief Complaint: Shortness of breath and wheezing for about 4 days. Confused and disoriented. HPI Narrative PEDRO PABLO SIERRA, is a 73 M with history of COPD on 3 to 5 L of oxygen from [facility] came to ED for shortness of breath along with wheezing and cough. detention, patient was febrile. Patient was found tachypneic [...] 20 mg IV. Patient is further admitted [facility] Medical History Asthma Atrial fibrillation Chronic pain [...] 76.5 H, Lymph % (Auto) 10.9 L, Gonzales % (Auto) 10.7 H, Eos % (Auto) [...] Clarity Clear, Urine pH 7.0, Ur Specific Fessenden 1.010, Urine Protein 30 H, Urine Glucose [...] side. 5. Moderate to severe chronic malnutrition: Waistband Setter consult. Nutritional supplement. 6. History of [...] 76.5 H, Lymph % (Auto) 10.9 L, Gonzales % (Auto) 10.7 H, Eos % (Auto) [...] Clarity Clear, Urine pH 7.0, Ur Specific Fessenden 1.010, Urine Protein 30 H, Urine Glucose [...] 21:10 EST Reading Location ID and State: [facility] / [place] Tel [phone], Service support , Charges/Coding Visit Charges Inpatient E&M: 49479 Init Hosp L3 07/31/23 0101 <Electronically signed by Brody Maynard MD> Cosigner Signature (if applicable): CC: Dr. Daija Morton MD; Dr. Brody Maynard MD~ Signed [facility] Work Phone: 1(245) 653-902502-12-2024 Discharge summary Author Huber Alvarado [facility] July 31, 2023 12:08am Note Date/Time July 30, 2023 8:57pm [facility] Medical Records Department [address] [place] [address] Emergency Department Summary 07/30/23 MR#: [id number] Acct: [id number] Name: PEDRO PABLO SIERRA Rep #:[id number] : 1950 73 From: Андрей CORTEZ PCP: [...] here on 24 July, discharged to a skilled nursing. Per the skilled nursing, the patient was more short of breath, tachypneic, and was wheezing more. Patient is alert and oriented to self. Patient is coarse, not answering to my questions. He is aggressive and is answering. I am not sure ifthis is his baseline. Patient's vital signs are stable on his 3 to 5 L of nasalcannula oxygen, patient is tachypneic. He does have audible wheezing. [facility] <DIEGO Hopper - Last Filed: 07/30/23 22:27> [facility] Medical History Asthma Atrial fibrillation Chronic pain [...] Oxygen Flow Rate (L/min) 3 3 <Dr. Hbuer Alvarado MD - Last Filed: 07/31/23 00:08> [...] Cannula Oxygen Flow Rate (L/min) 3 3 [facility] <DIEGO Hopper - Last Filed: 07/30/23 22:27> [facility] Lab Data Labs: Laboratory Results - last 24 hr 07/30/23 07/30/23 20:51 21:55 WBC 5.5 RBC 4.07 L Hgb 13.3 Hct 40.4 MCV 99.3 H MCH 32.7 H MCHC 32.9 RDW Std Deviation 48.3 H RDW Coeff of Aly 13.2 Plt Count 262 MPV 9.4 Immature Gran % (Auto) 0.500 Neut % (Auto) 76.5 H Lymph % (Auto) 10.9 L Gonzales % (Auto) 10.7 H Eos % (Auto) [...] Clarity Clear Urine pH 7.0 Ur Specific Fessenden 1.010 Urine Protein 30 H Urine Glucose [...] is moving all extremities. Currently at the skilled nursing after sustaining a pubic rami fracture. Differential [...] History: This patient was sent in by skilled nursing for increased blood pressure and increased dyspnea [...] think this would be tolerated at the skilled nursing. He is tachypneic but not tachycardic. He [...] 76.5 H Lymph % (Auto) 10.9 L Gonzales % (Auto) 10.7 H Eos % (Auto) [...] Clarity Clear Urine pH 7.0 Ur Specific Fessenden 1.010 Urine Protein 30 H Urine Glucose [...] acute exacerbation Disposition Disposition: Acute Care [facility] What to do if you have Problems For any increased pain, shortness of breath, bleeding, nausea or vomiting, chestpain, or any unexpected problems, contact your Primary Care Provider. Call [facility] ([phone]) or report to the closest Emergency Room. Call 911 if necessary. 07/30/232226 <Electronically signed by Андрей CORTEZ> Cosigner Signature (if applicable): 07/31/23 0008 <Electronically signed by Huber Alvarado MD> CC: Dr. Daija Morton MD ~ Signed [facility] Work Phone: 1(235) 297-592702-11-2024 Discharge summary Author Huber Alvarado [facility] July 31, 2023 12:08am Note Date/Time July 30, 2023 8:57pm [facility] Medical Records Department [address] [place] [address] Emergency Department Summary 07/30/23 MR#: [id number] Acct: [id number] Name: PEDRO PABLO SIERRA Rep #:[id number] : 1950 73 From: Андрей COTREZ PCP: Dr. Daija Morton MD Status:REG E [...] here on 24 July, discharged to a skilled nursing. Per the skilled nursing, the patient was more short of breath, tachypneic, and was wheezing more. Patient is alert and oriented to self. Patient is coarse, not answering to my questions. He is aggressive and is answering. I am not sure ifthis is his baseline. Patient's vital signs are stable on his 3 to 5 L of nasalcannula oxygen, patient is tachypneic. He does have audible wheezing. [facility] <DIEGO Hopper - Last Filed: 07/30/23 22:27> [facility] Medical History Asthma Atrial fibrillation Chronic pain [...] Cannula Oxygen Flow Rate (L/min) 3 3 [facility] <DIEGO Hopper - Last Filed: 07/30/23 22:27> [facility] Lab Data Labs: Laboratory Results - last 24 hr 07/30/23 07/30/23 20:51 21:55 WBC 5.5 RBC 4.07 L Hgb 13.3 Hct 40.4 MCV 99.3 H MCH 32.7 H MCHC 32.9 RDW Std Deviation 48.3 H RDW Coeff of Aly 13.2 Plt Count 262 MPV 9.4 Immature Gran % (Auto) 0.500 Neut % (Auto) 76.5 H Lymph % (Auto) 10.9 L Gonzales % (Auto) 10.7 H Eos % (Auto) [...] Clarity Clear Urine pH 7.0 Ur Specific Fessenden 1.010 Urine Protein 30 H Urine Glucose [...] is moving all extremities. Currently at the skilled nursing after sustaining a pubic rami fracture. Differential [...] Alvarado MD - Last Filed: 07/31/23 00:08> [facility] Narrative Medical decision making narrative: I have personally performed a face to face assessment of the patient and have reviewed the LUIS Note. I performed a substantive portion of the visit including all aspects of the following. My echevarria findings include: History: This patient was sent in by skilled nursing for increased blood pressure and increased dyspnea [...] think this would be tolerated at the skilled nursing. He is tachypneic but not tachycardic. He [...] 76.5 H Lymph % (Auto) 10.9 L Gonzales % (Auto) 10.7 H Eos % (Auto) [...] Clarity Clear Urine pH 7.0 Ur Specific Fessenden 1.010 Urine Protein 30 H Urine Glucose [...] A, COPD with acute exacerbation Disposition Disposition: [facility] What to do if you have Problems For any increased pain, shortness of breath, bleeding, nausea or vomiting, chestpain, or any unexpected problems, contact your Primary Care Provider. Call [facility] ([phone]) or report to the closest Emergency Room. Call 911 if necessary. 07/30/232226 <Electronically signed by Андрей LEEC> Cosigner Signature (if applicable): 07/31/23 0008 <Electronically signed by Huber Alvarado MD> CC: Dr. Daija Morton MD ~ Signed [facility] Work Phone: 1(878) 275-142002-01-2024 Miscellaneous Notes* Telephone Encounter - Saundra George [...] - 07/19/2023 2:59 PM EST Mahnaz with [facility] calls to give provider update. Patient was seen today for HH visit and during visit complained of abdominal pain, rib pain, and chest pain with coughing. Afebrile. Productive cough with clear/yellow mucus. Mahnaz reports patient continues to smoke and cough is chronic. Message left on voicemail of Sondra Alejo [phone] to request Pedro Pablo contact the office for further triage. Saundra George RN documented in this encounterMartins Ferry Hospital01-23-2024 Note. MICRO - Microbiology PROCEDURE: Urine Culture [*1] SOURCE: Urine, Clean Catch BODY SITE: COLLECTED DATE/TIME: 07/10/2023 12:00 EST RECEIVED DATE/TIME: 07/10/2023 16:50 EST START DATE/TIME: 07/10/2023 16:50 EST FREE TEXT SOURCE: FINAL REPORTS Final Report [] Verified Date/Time/Personnel: 07/11/2023 14:00 EST 10,000 - 50,000 cfu/ml Mixed growth consistent with normal urogenital kishore. Performing Locations *1: This test was performed at: [address], [facility] , [facility] ([place])05-30-2023 Miscellaneous Notes* Telephone Encounter - Kelly [...] you. Kelly Zelaya, ОЛЕГ. documented in this encounterMartins Ferry Hospital12-12-2023 Miscellaneous Notes* Telephone Encounter - Isabella Hdz LPN - 05/30/2023 2:39 PM EST Pharmacy calling requesting refills. Advises that pt just got discharged from skilled nursing and theywould like to deliver these meds tomorrow if possible. Last refill Flomax and Proscar 02/28/23 Qty: 30 with 1 refill Last refill lidocaine patches 09/30/22 Qty: 15 with 0 refills JEANNINE 08/27/22 NOV none scheduled Isabella Hdz LPN documented in this encounterMartins Ferry Hospital12-04-2023 Miscellaneous Notes* Telephone Encounter - Nani Webb LPN - 05/22/2023 10:17 AM EST Stella with [facility] called in and message below given. Stella's PH>[phone]. Nani Webb LPN * Telephone Encounter - Sammi Cleaning LPN - 05/19/2023 7:10 PM EST Message left on secure voicemail. Sammi Cleaning LPN * Telephone Encounter - Keara Shin MD - 05/19/2023 6:45 PM EST Okay verbal order * Telephone Encounter - Bing Delgado RN - 05/19/2023 1:33 PM EST [facility]- reports patient will be discharged today with orders for SN & PT. would like to see patient this weekend, and no later than Monday. Requesting verbal order to follow for [facility]. Please phone [facility] with verbal: [phone] documented in this encounterMartins Ferry Hospital10-17-2023 Discharge summary Author Frankie Galindo [facility] April 04, 2023 10:02am Note Date/Time April 04, 2023 9 :21am [facility] Medical Records Department [address] [place] [address] Transfer to [facility] MR#: [id number] Acct: [id number] Name: PEDRO PABLO SIERRA Shannan Rep #:[id number] : 1950 72 From: Frankie Galindo MD PCP: Dr. Daija Morton MD Status:ADM I N Certification of patient admission REQUIRED AT TIME OF ADMISSION. I CERTIFY THAT POST-HOSPITAL ECF SERVICES ARE REQUIRED TO BE GIVEN ON AN IN-PATIENT BASIS BECAUSE OF THE ABOVE NAMED PATIENT'S NEED FOR GROUP HOME CARE ON A CONTINUING BASIS FOR THE [...] Requested for PT OT eval and social insurance specialist to assist with discharge planning 3. 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 Will provide chocolate ensure compact tid [...] cbc while on iv abx. Fax to [phone] sennosides-docusate sodium [Stool Softener-Stimulant Laxat] 8.6-50 mg [...] in before D/C Order can be placed): Long-Term Facility (1) UTI (urinary tract infection) Qualifiers: Urinary tract infection type: acute cystitis Hematuria presence: without hematuria Qualified Code(s): N30.00 - Acute cystitis without hematuria 04/04/23 1002 <Electronically signed by Frankie Galindo MD> Cosigner Signature (if applicable): CC: Dr. Daija Morton MD; Dr. Fran Cartwright MD; Dr. Celia Toribio MD; Dr. Elton Moore MD ~ [facility] Work Phone: 1(167) 692-956810-17-2023 Progress note Author Frankie Galindo [facility] April 04, 2023 9:21am Note Date/Time April 04, 2023 7 :31am [facility] Medical Records Department [address] [place] [address] Progress Note - Hospitalist 04/04/23 0731 MR#: [id number] Acct: [id number] Name: PEDRO PABLO SIERRA Rep #:[id number] : 1950 72 From: Frankie Galindo MD PCP: Dr. Daija Morton MD Status:ADM I N [address]: [address] Reason for Visit Reason for Visit: [...] % (Auto) 64.4, Lymph % (Auto) 23.6, Gonzales % (Auto) 6.3, Eos % (Auto) 3.3, [...] Requested for PT OT eval and social insurance specialist to assist with discharge planning 3. Chronic [...] documentation, 36minutes. Charges/Coding Visit Charges Inpatient E&M: 81591 Subs Hosp L2 04/04/23 0921 <Electronically signed by Frankie Galindo MD> Cosigner Signature (if applicable): CC: ~ Signed [facility] Work Phone: 1(312) 692-302210-16-2023 Consult note Author Elton Moore [facility] April 03, 2023 5:06pm Note Date/Time April 03, 2023 5 :04pm [facility] Medical Records Department [address] [place] [address] Consultation - Infectious Dx 04/03/23 1703 MR#: [id number] Acct: [id number] Name: PEDRO PABLO SIERRA Rep #:[id number] : 1950 72 From: Elton pierce MD PCP: Dr. Daija Morton MD Status:ADM I N Location: [place] OI344-5 Assessment & Plan Assessment/Plan (1) Acute UTI: [...] performed and neg except as noted above. [facility] Medical History Asthma Atrial fibrillation Chronic pain [...] % (Auto) 63.8, Lymph % (Auto) 22.5, Gonzales% (Auto) 7.6, Eos % (Auto) 3.9, Baso [...] Toribio MD; Dr. Elton Moore MD~ Signed [facility] Work Phone: 1(861) 302-838110-16-2023 [facility] April 03, 2023 10:50am Note Date/Time April 03, 2023 1 0:51am [facility] Medical Records Department [address] [place] [address] Progress Note - Hospitalist 04/03/23 1046 MR#: [id number] Acct: [id number] Name: PEDRO PABLO SIERRA Rep #:[id number] : 1950 72 From: Frankie Galindo MD PCP: Dr. Daija Morton MD Status:ADM I N Location: [place] [address] Reason for Visit Reason for Visit: Diagnoses [...] % (Auto) 63.8, Lymph % (Auto) 22.5, Gonzales% (Auto) 7.6, Eos % (Auto) 3.9, Baso [...] Requested for PT OT eval and social insurance specialist to assist with discharge planning 3. Chronic [...] documentation, 36minutes. Charges/Coding Visit Charges Inpatient E&M: 61007 Subs Hosp L2 04/03/23 1050 <Electronically signed by Frankie Galindo MD> Cosigner Signature (if applicable): CC: ~ Signed [facility] Work Phone: 1(700) 813-825710-15-2023 Progress note Author Frankie Galindo [facility] April 02, 2023 9:12am Note Date/Time April 02, 2023 7 :35am [facility] Medical Records Department [address] [place] [address] Progress Note - Hospitalist 04/02/23 0735 MR#: [id number] Acct: [id number] Name: PEDRO PABLO SIERRA Rep #:[id number] : 1950 72 From: Frankie Galindo MD PCP: Dr. Daija Morton MD Status:ADM I N Location: [place] [address] Reason for Visit Reason for Visit: Diagnoses [...] % (Auto) 58.6, Lymph % (Auto) 23.5, Gonzales % (Auto) 11.2 H, Eos % (Auto) [...] Requested for PT OT eval and social insurance specialist to assist with discharge planning 3. Chronic [...] Cosigner Signature (if applicable): CC: ~ Signed [facility] Work Phone: 1(533) 464-497810-15-2023 Progress note Author Fran Cartwright [facility] April 02, 2023 6:53am Note Date/Time April 02, 2023 6 :53am [facility] Medical Records Department [address] [place] [address] [place] [address] Progress Note 04/02/23 0652 MR#: [id number] Acct: [id number] Name: PEDRO PABLO SIERRA Rep #:[id number] : 1950 72 From: Fran Cartwright MD PCP: Dr. Daija Morton MD Status:ADM I N Location: [place] RX561-4 Progress Note Urine culture returned positive for ESBL E. coli. E. coli is however sensitive to Zosyn in vitro. Cannot be certain whether E. coli will be sensitive in vivo. Zosyn discontinued. Started on Merrem, adjusted for creatinine clearance. 04/02/23 0653 <Electronically signed by Fran Cartwright MD> Fran Cartwright MD Cosigner Signature (if applicable): CC: ~ Signed [facility] Work Phone: 1(930) 413-418310-14-2023 Progress note Author Frankie Galindo [facility] April 01, 2023 10:02am Note Date/Time April 01, 2023 7 :53am [facility] Medical Records Department [address] [place] [address] Progress Note - Hospitalist 04/01/23 0751 MR#: [id number] Acct: [id number] Name: PEDRO PABLO SIERRA Rep #:[id number] : 1950 72 From: Frankie Galindo MD PCP: Dr. Daija Morton MD Status:ADM I N Location: [place] [address] Reason for Visit Reason for Visit: Diagnoses [...] (Auto) 70.2 H, Lymph % (Auto) 15.3 L,Gonzales % (Auto) 11.0 H, Eos % (Auto) [...] Requested for PT OT eval and social insurance specialist to assist with discharge planning 3. Chronic [...] documentation, 36minutes. Charges/Coding Visit Charges Inpatient E&M: 38928 Subs Hosp L2 04/01/23 1002 <Electronically signed by Frankie Galindo MD> Cosigner Signature (if applicable): CC: ~ Signed [facility] Work Phone: 1(754) 804-128510-13-2023 Progress note Author Celia Toribio [facility] March 31, 2023 11:24am Note Date/Time March 31, 2023 7 :18am [facility] Medical Records Department [address] [place] [address] Progress Note - Hospitalist 03/31/23711 MR#: [id number] Acct: [id number] Name: PEDRO PABLO SIERRA Rep #:[id number] : 1950 72 From: Celia Toribio MD PCP: Dr. Daija Morton MD Status:ADM I N Location: MS3 [id number] Reason for Visit Reason for Visit: Diagnoses [...] 79.2 H, Lymph % (Auto) 9.3 L, Gonzales % (Auto) 10.5 H, Eos % (Auto) [...] Sl. Cloudy, Urine pH 6.0, Ur Specific Fessenden 1.020, Urine Protein 100 H, Urine Glucose [...] 17:14 EDT Reading Location ID and State: [employer] / [employer] , Service support , Shoulder X-Ray 03/30/23 15:46 IMPRESSION: Mild degenerative disease as described with no acute fracture or subluxation. Electronically Signed: Irish Velásquez MD at 17:15 EDT Reading Location ID and State: [employer] / [place] , Service support , Thoracic Spine CT 03/30/23 15:46 IMPRESSION: Diffuse osteopenia/osteoporosis with minimal compression fracture of T11, exact age indeterminate. No retropulsion or extension to the pedicles visualized. Underlying degenerative disease. No subluxation. Electronically Signed: Irish Velásquez MD at 17:12 EDT Reading Location ID and State: [employer] / [employer] , Service support , Chest X-Ray 03/30/23 16:30 IMPRESSION: No acute cardiac pulmonary disease. Electronically Signed: Irish Velásquez MD at 17:15 EDT Reading Location ID and State: [employer] / [place] , Service support , Physical Exam Narrative [...] documentation, 36minutes. Charges/Coding Visit Charges Inpatient E&M: 55480 Subs Hosp L2 03/31/23 1124 <Electronically signed by Celia Toribio MD> Cosigner Signature (if applicable): CC: ~ Signed [facility] Work Phone: 1(613) 543-456510-12-2023 Discharge summary Author Huber Alvarado [facility] March 30, 2023 8:31pm Note Date/Time March 30, 2023 3 :51pm [facility] Medical Records Department [address] [place] [address] Emergency Department Summary 03/30/23 MR#: [id number] Acct: [id number] Name: PEDRO PABLO SIERRA Rep #:[id number] : 1950 72 From: Huber Alvarado MD PCP: Dr. Daija Morton MD Status:ADM I N Location: [facility] UR943-1 HPI History of Present Illness Chief Complaint: [...] 79.2 H Lymph % (Auto) 9.3 L Gonzales % (Auto) 10.5 H Eos % (Auto) [...] Sl. Cloudy Urine pH 6.0 Ur Specific Fessenden 1.020 Urine Protein 100 H Urine Glucose [...] 17:14 EDT Reading Location ID and State: [employer] / [employer] , Service support , Shoulder X-Ray 03/30/23 15:46 IMPRESSION: Mild degenerative disease as described with no acute fracture or subluxation. Electronically Signed: Irish Velásquez MD at 17:15 EDT Reading Location ID and State: [employer] / [employer] , Service support , Thoracic Spine CT 03/30/23 15:46 IMPRESSION: Diffuse osteopenia/osteoporosis with minimal compression fracture of T11, exact age indeterminate. No retropulsion or extension to the pedicles visualized. Underlying degenerative disease. No subluxation. Electronically Signed: Irish Velásquez MD at 17:12 EDT Reading Location ID and State: [employer] / [employer] , Service support , Chest X-Ray 03/30/23 16:30 IMPRESSION: No acute cardiac pulmonary disease. Electronically Signed: Irish Velásquez MD at 17:15 EDT Reading Location ID and State: [employer] / [employer] , Service support , EKG Initial EKG: [...] Inabilityto walk Disposition Disposition: Acute Care [facility] What to do if you have Problems For any increased pain, shortness of breath, bleeding, nausea or vomiting, chestpain, or any unexpected problems, contact your Primary Care Provider. Call [facility] ([phone]) or report to the closest Emergency Room. Call 911 if necessary. 03/30/232030 <Electronically signed by Huber Alvarado MD> Cosigner Signature (if applicable): CC: Dr. Daija Morton MD ~ Signed [facility] Work Phone: 1(179) 913-320210-12-2023 History and physical note Author Fran [facility] centerpete [facility] March 30, 2023 8:08pm Note Date/Time March 30, 2023 7 :32pm [facility] Medical Records Department [address] [place] [address] H&P Exam - Hospitalist 03/30/231931 MR#: [id number] Acct: [id number] Name: PEDRO PABLO SIERRA Rep #:[id number] : 1950 72 From: Fran Cartwright MD PCP: Dr. Daija Morton MD Status:ADM I N Location: [facility] OR186-8 HPI - General General Date of Admission: [...] patient has a burning sensation with urination. [facility] Medical History (Updated 03/30/23 @ 20:04 by [...] 79.2 H, Lymph % (Auto) 9.3 L, Gonzales % (Auto) 10.5 H, Eos % (Auto) [...] Sl. Cloudy, Urine pH 6.0, Ur Specific Fessenden 1.020, Urine Protein 100 H, Urine Glucose [...] 17:15 EDT Reading Location ID and State: 973 / [employer] , Service support , Thoracic Spine CT [...] 17:15 EDT Reading Location ID and State: 073 / [employer] , Service support , Assessment & Plan [...] documentation, 70minutes. Charges/Coding Visit Charges Inpatient E&M: 21714 Init Hosp L3 03/30/232007 <Electronically signed by Fran Cartwright MD> Cosigner Signature (if applicable): CC: Dr. Daija Morton MD; Dr. Fran Cartwright MD~ Signed [facility] Work Phone: 1(559) 105-265310-12-2023 Discharge summary Author Huber Alvarado [facility] March 30, 2023 8:31pm Note Date/Time March 30, 2023 3 :51pm [facility] Medical Records Department [address] [place] [address] Emergency Department Summary 03/30/23 MR#: [id number] Acct: [id number] Name: PEDRO PABLO SIERRA Rep #:[id number] : 1950 72 From: Huber Alvarado MD PCP: Dr. Daija Morton MD Status:ADM I N Location: [place]3 LX051-9 HPI History of Present Illness Chief Complaint: [...] 79.2 H Lymph % (Auto) 9.3 L Gonzales % (Auto) 10.5 H Eos % (Auto) [...] Sl. Cloudy Urine pH 6.0 Ur Specific Fessenden 1.020 Urine Protein 100 H Urine Glucose [...] 17:14 EDT Reading Location ID and State: [employer] / [employer] , Service support , Shoulder X-Ray 03/30/23 15:46 IMPRESSION: Mild degenerative disease as described with no acute fracture or subluxation. Electronically Signed: Irish Velásquez MD at 17:15 EDT Reading Location ID and State: [employer] / [employer] , Service support , Thoracic Spine CT 03/30/23 15:46 IMPRESSION: Diffuse osteopenia/osteoporosis with minimal compression fracture of T11, exact age indeterminate. No retropulsion or extension to the pedicles visualized. Underlying degenerative disease. No subluxation. Electronically Signed: Irish Velásquez MD at 17:12 EDT Reading Location ID and State: [employer] / [employer] , Service support , Chest X-Ray 03/30/23 16:30 IMPRESSION: No acute cardiac pulmonary disease. Electronically Signed: Irish Velásquez MD at 17:15 EDT Reading Location ID and State: [employer] / [employer] ,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 aorto-occlusive critical limb ischemia - S/p 11/12-11/19/13 [facility] Vascular Surgery for aortoiliac thrombosis [...] of this encounter (statuses as of 10/13/2021) [facility]arrative* Problem [...] Neurotoin BID at home Patient started on Sugar Tree postoperatively, pain controlled at time of discharge. Ischemia of extremity 10/14/2013 02/10/2014 Overview: - admitted to [facility] vascular surgery twice in October 2013, s/p left femoral endarterectomy with patch, US guided access RCFA, L profundaplasty, RUFUS recanalization & stenting, CRISPIN stenting on 10/23/13 for aorto-occlusive critical limb ischemia - S/p 11/12-11/19/13 [facility] Vascular Surgery for aortoiliac thrombosis [...] of this encounter (statuses as of 10/13/2021) [facility] Narrative* Problem [...] Neurotoin BID at home Patient started on Sugar Tree postoperatively, pain controlled at time of discharge. Ischemia of extremity 10/14/2013 02/10/2014 Overview: - admitted to [facility] vascular surgery twice in October 2013, s/p left femoral endarterectomy with patch, US guided access RCFA, L profundaplasty, RUFUS recanalization & stenting, CRISPIN stenting on 10/23/13 for aorto-occlusive critical limb ischemia - S/p 11/12-11/19/13 [facility] Vascular Surgery for aortoiliac thrombosis [...] of this encounter (statuses as of 10/14/2021) [facility] Narrative* Problem [...] Neurotoin BID at home Patient started on Sugar Tree postoperatively, pain controlled at time of discharge. Ischemia of extremity 10/14/2013 02/10/2014 Overview: - admitted to [facility] vascular surgery twice in October 2013, s/p left femoral endarterectomy with patch, US guided access RCFA, L profundaplasty, RUFUS recanalization & stenting, CRISPIN stenting on 10/23/13 for aorto-occlusive critical limb ischemia - S/p 11/12-11/19/13 [facility] Vascular Surgery for aortoiliac thrombosis [...] of this encounter (statuses as of 10/18/2021) [facility]arrative* Problem [...] Neurotoin BID at home Patient started on Sugar Tree postoperatively, pain controlled at time of discharge. Ischemia of extremity 10/14/2013 02/10/2014 Overview: - admitted to [facility] vascular surgery twice in October [...] of this encounter (statuses as of 10/21/2021) [facility] Narrative* Problem [...] Neurotoin BID at home Patient started on Sugar Tree postoperatively, pain controlled at time of discharge. Ischemia of extremity 10/14/2013 02/10/2014 Overview: - admitted to [facility] vascular surgery twice in October [...] of this encounter (statuses as of 10/21/2021) [facility] Narrative* Problem [...] Neurotoin BID at home Patient started on Sugar Tree postoperatively, pain controlled at time of discharge. Ischemia of extremity 10/14/2013 02/10/2014 Overview: - admitted to [facility] vascular surgery twice in October [...] of this encounter (statuses as of 10/22/2021) [facility]arrative* Problem [...] Neurotoin BID at home Patient started on Sugar Tree postoperatively, pain controlled at time of discharge. Ischemia of extremity 10/14/2013 02/10/2014 Overview: - admitted to [facility] vascular surgery twice in October 2013, s/p left femoral endarterectomy with patch, US guided access RCFA, L profundaplasty, RUFUS recanalization & stenting, CRISPIN stenting on 10/23/13 for aorto-occlusive critical limb ischemia - S/p 11/12-11/19/13 [facility] Vascular Surgery for aortoiliac thrombosis [...] of this encounter (statuses as of 10/22/2021) [facility]arrative* Problem [...] Neurotoin BID at home Patient started on Sugar Tree postoperatively, pain controlled at time of discharge. Ischemia of extremity 10/14/2013 02/10/2014 Overview: - admitted to [facility] vascular surgery twice in October [...] of this encounter (statuses as of 10/22/2021) [facility]* Problem [...] Neurotoin BID at home Patient started on Sugar Tree postoperatively, pain controlled at time of discharge. Ischemia of extremity 10/14/2013 02/10/2014 Overview: - admitted to [facility] vascular surgery twice in October 2013, s/p left femoral endarterectomy with patch, US guided access RCFA, L profundaplasty, RUFUS recanalization & stenting, CRISPIN stenting on 10/23/13 for aorto-occlusive critical limb ischemia - S/p 11/12-11/19/13 [facility] Vascular Surgery for aortoiliac thrombosis [...] of this encounter (statuses as of 10/27/2021) [facility]arrative* Problem [...] Neurotoin BID at home Patient started on Sugar Tree postoperatively, pain controlled at time of discharge. Ischemia of extremity 10/14/2013 02/10/2014 Overview: - admitted to [facility] vascular surgery twice in October 2013, s/p left femoral endarterectomy with patch, US guided access RCFA, L profundaplasty, RUFUS recanalization & stenting, CRISPIN stenting on 10/23/13 for aorto-occlusive critical limb ischemia - S/p 11/12-11/19/13 [facility] Vascular Surgery for aortoiliac thrombosis [...] of this encounter (statuses as of 11/08/2021) [facility]* Problem [...] Neurotoin BID at home Patient started on Sugar Tree postoperatively, pain controlled at time of discharge. Ischemia of extremity 10/14/2013 02/10/2014 Overview: - admitted to [facility] vascular surgery twice in October 2013, s/p left femoral endarterectomy with patch, US guided access RCFA, L profundaplasty, RUFUS recanalization & stenting, CRISPIN stenting on 10/23/13 for aorto-occlusive critical limb ischemia - S/p 11/12-11/19/13 [facility] Vascular Surgery for aortoiliac thrombosis [...] of this encounter (statuses as of 11/08/2021) [facility]* Problem [...] Neurotoin BID at home Patient started on Sugar Tree postoperatively, pain controlled at time of discharge. Ischemia of extremity 10/14/2013 02/10/2014 Overview: - admitted to [facility] vascular surgery twice in October [...] of this encounter (statuses as of 11/11/2021) [facility]ative* Problem [...] Neurotoin BID at home Patient started on Sugar Tree postoperatively, pain controlled at time of discharge. Ischemia of extremity 10/14/2013 02/10/2014 Overview: - admitted to [facility] vascular surgery twice in October 2013, s/p left femoral endarterectomy with patch, US guided access RCFA, L profundaplasty, RUFUS recanalization & stenting, CRISPIN stenting on 10/23/13 for aorto-occlusive critical limb ischemia - S/p 11/12-11/19/13 [facility] Vascular Surgery for aortoiliac thrombosis [...] of this encounter (statuses as of 11/12/2021) [facility]* Problem [...] Neurotoin BID at home Patient started on Sugar Tree postoperatively, pain controlled at time of discharge. Ischemia of extremity 10/14/2013 02/10/2014 Overview: - admitted to [facility] vascular surgery twice in October [...] of this encounter (statuses as of 11/16/2021) [facility]* Problem [...] Neurotoin BID at home Patient started on Sugar Tree postoperatively, pain controlled at time of discharge. Ischemia of extremity 10/14/2013 02/10/2014 Overview: - admitted to [facility] vascular surgery twice in October 2013, s/p left femoral endarterectomy with patch, US guided access RCFA, L profundaplasty, RUFUS recanalization & stenting, CRISPIN stenting on 10/23/13 for aorto-occlusive critical limb ischemia - S/p 11/12-11/19/13 [facility] Vascular Surgery for aortoiliac thrombosis [...] of this encounter (statuses as of 11/17/2021) [facility]* Problem [...] Neurotoin BID at home Patient started on Sugar Tree postoperatively, pain controlled at time of discharge. Ischemia of extremity 10/14/2013 02/10/2014 Overview: - admitted to [facility] vascular surgery twice in October [...] of this encounter (statuses as of 11/17/2021) [facility]ative* Problem [...] Neurotoin BID at home Patient started on Sugar Tree postoperatively, pain controlled at time of discharge. Ischemia of extremity 10/14/2013 02/10/2014 Overview: - admitted to [facility] vascular surgery twice in October 2013, s/p left femoral endarterectomy with patch, US guided access RCFA, L profundaplasty, RUFUS recanalization & stenting, CRISPIN stenting on 10/23/13 for aorto-occlusive critical limb ischemia - S/p 11/12-11/19/13 [facility] Vascular Surgery for aortoiliac thrombosis [...] of this encounter (statuses as of 11/18/2021) [facility]* Problem [...] Neurotoin BID at home Patient started on Sugar Tree postoperatively, pain controlled at time of discharge. Ischemia of extremity 10/14/2013 02/10/2014 Overview: - admitted to [facility] vascular surgery twice in October [...] of this encounter (statuses as of 11/19/2021) [facility]ative* Problem [...] Neurotoin BID at home Patient started on Sugar Tree postoperatively, pain controlled at time of discharge. Ischemia of extremity 10/14/2013 02/10/2014 Overview: - admitted to [facility] vascular surgery twice in October [...] of this encounter (statuses as of 11/19/2021) [facility]ative* Problem [...] Neurotoin BID at home Patient started on Sugar Tree postoperatively, pain controlled at time of discharge. Ischemia of extremity 10/14/2013 02/10/2014 Overview: - admitted to [facility] vascular surgery twice in October [...] of this encounter (statuses as of 11/26/2021) [facility]* Problem [...] Neurotoin BID at home Patient started on Sugar Tree postoperatively, pain controlled at time of discharge. Ischemia of extremity 10/14/2013 02/10/2014 Overview: - admitted to [facility] vascular surgery twice in October 2013, s/p left femoral endarterectomy with patch, US guided access RCFA, L profundaplasty, RUFUS recanalization & stenting, CRISPIN stenting on 10/23/13 for aorto-occlusive critical limb ischemia - S/p 11/12-11/19/13 [facility] Vascular Surgery for aortoiliac thrombosis [...] of this encounter (statuses as of 11/30/2021) [facility]* Problem [...] Neurotoin BID at home Patient started on Sugar Tree postoperatively, pain controlled at time of discharge. Ischemia of extremity 10/14/2013 02/10/2014 Overview: - admitted to [facility] vascular surgery twice in October [...] of this encounter (statuses as of 12/03/2021) [facility]* Problem [...] Neurotoin BID at home Patient started on Sugar Tree postoperatively, pain controlled at time of discharge. Ischemia of extremity 10/14/2013 02/10/2014 Overview: - admitted to [facility] vascular surgery twice in October 2013, s/p left femoral endarterectomy with patch, US guided access RCFA, L profundaplasty, RUFUS recanalization & stenting, CRISPIN stenting on 10/23/13 for aorto-occlusive critical limb ischemia - S/p 11/12-11/19/13 [facility] Vascular Surgery for aortoiliac thrombosis [...] of this encounter (statuses as of 12/07/2021) [facility] [facility] History of Past illness Narrative* Problem [...] Neurotoin BID at home Patient started on Sugar Tree postoperatively, pain controlled at time of discharge. Ischemia of extremity 10/14/2013 02/10/2014 Overview: - admitted to [facility] vascular surgery twice in October [...] of this encounter (statuses as of 01/14/2022) [facility]04-24-2020 History of Past illness Narrative* Problem [...] Neurotoin BID at home Patient started on Sugar Tree postoperatively, pain controlled at time of discharge. Ischemia of extremity 10/14/2013 02/10/2014 Overview: - admitted to [facility] vascular surgery twice in October 2013, s/p left femoral endarterectomy with patch, US guided access RCFA, L profundaplasty, RUFUS recanalization & stenting, CRISPIN stenting on 10/23/13 for aorto-occlusive critical limb ischemia - S/p 11/12-11/19/13 [facility] Vascular Surgery for aortoiliac thrombosis [...] of this encounter (statuses as of 01/14/2022) [facility]04-24-2020 History of Past illness Narrative* Problem [...] Neurotoin BID at home Patient started on Sugar Tree postoperatively, pain controlled at time of discharge. Ischemia of extremity 10/14/2013 02/10/2014 Overview: - admitted to [facility] vascular surgery twice in October [...] of this encounter (statuses as of 01/25/2022) [facility]04-24-2020 History of Past illness Narrative* Problem [...] Neurotoin BID at home Patient started on Sugar Tree postoperatively, pain controlled at time of discharge. Ischemia of extremity 10/14/2013 02/10/2014 Overview: - admitted to [facility] vascular surgery twice in October 2013, s/p left femoral endarterectomy with patch, US guided access RCFA, L profundaplasty, RUFUS recanalization & stenting, CRISPIN stenting on 10/23/13 for aorto-occlusive critical limb ischemia - S/p 11/12-11/19/13 [facility] Vascular Surgery for aortoiliac thrombosis [...] of this encounter (statuses as of 01/28/2022) [facility]04-24-2020 History of Past illness Narrative* Problem [...] Neurotoin BID at home Patient started on Sugar Tree postoperatively, pain controlled at time of discharge. Ischemia of extremity 10/14/2013 02/10/2014 Overview: - admitted to [facility] vascular surgery twice in October [...] of this encounter (statuses as of 01/31/2022) [facility]04-24-2020 History of Past illness Narrative* Problem [...] Neurotoin BID at home Patient started on Sugar Tree postoperatively, pain controlled at time of discharge. Ischemia of extremity 10/14/2013 02/10/2014 Overview: - admitted to [facility] vascular surgery twice in October 2013, s/p left femoral endarterectomy with patch, US guided access RCFA, L profundaplasty, RUFUS recanalization & stenting, CRISPIN stenting on 10/23/13 for aorto-occlusive critical limb ischemia - S/p 11/12-11/19/13 [facility] Vascular Surgery for aortoiliac thrombosis [...] of this encounter (statuses as of 01/31/2022) [facility]04-24-2020 History of Past illness Narrative* Problem [...] Neurotoin BID at home Patient started on Sugar Tree postoperatively, pain controlled at time of discharge. Ischemia of extremity 10/14/2013 02/10/2014 Overview: - admitted to [facility] vascular surgery twice in October 2013, s/p left femoral endarterectomy with patch, US guided access RCFA, L profundaplasty, RUFUS recanalization & stenting, CRISPIN stenting on 10/23/13 for aorto-occlusive critical limb ischemia - S/p 11/12-11/19/13 [facility] Vascular Surgery for aortoiliac thrombosis [...] of this encounter (statuses as of 01/31/2022) [facility]04-24-2020 History of Past illness Narrative* Problem [...] Neurotoin BID at home Patient started on Sugar Tree postoperatively, pain controlled at time of discharge. Ischemia of extremity 10/14/2013 02/10/2014 Overview: - admitted to [facility] vascular surgery twice in October 2013, s/p left femoral endarterectomy with patch, US guided access RCFA, L profundaplasty, RUFUS recanalization & stenting, CRISPIN stenting on 10/23/13 for aorto-occlusive critical limb ischemia - S/p 11/12-11/19/13 [facility] Vascular Surgery for aortoiliac thrombosis [...] of this encounter (statuses as of 02/03/2022) [facility]04-24-2020 History of Past illness Narrative* Problem [...] Neurotoin BID at home Patient started on Sugar Tree postoperatively, pain controlled at time of discharge. Ischemia of extremity 10/14/2013 02/10/2014 Overview: - admitted to [facility] vascular surgery twice in October 2013, s/p left femoral endarterectomy with patch, US guided access RCFA, L profundaplasty, RUFUS recanalization & stenting, CRISPIN stenting on 10/23/13 for aorto-occlusive critical limb ischemia - S/p 11/12-11/19/13 [facility] Vascular Surgery for aortoiliac thrombosis [...] of this encounter (statuses as of 02/24/2022) [facility]04-24-2020 History of Past illness Narrative* Problem [...] Neurotoin BID at home Patient started on Sugar Tree postoperatively, pain controlled at time of discharge. Ischemia of extremity 10/14/2013 02/10/2014 Overview: - admitted to [facility] vascular surgery twice in October 2013, s/p left femoral endarterectomy with patch, US guided access RCFA, L profundaplasty, RUFUS recanalization & stenting, CRISPIN stenting on 10/23/13 for aorto-occlusive critical limb ischemia - S/p 11/12-11/19/13 [facility] Vascular Surgery for aortoiliac thrombosis [...] of this encounter (statuses as of 02/24/2022) [facility]04-24-2020 History of Past illness Narrative* Problem [...] Neurotoin BID at home Patient started on Sugar Tree postoperatively, pain controlled at time of discharge. Ischemia of extremity 10/14/2013 02/10/2014 Overview: - admitted to [facility] vascular surgery twice in October 2013, s/p left femoral endarterectomy with patch, US guided access RCFA, L profundaplasty, RUFUS recanalization & stenting, CRISPIN stenting on 10/23/13 for aorto-occlusive critical limb ischemia - S/p 11/12-11/19/13 [facility] Vascular Surgery for aortoiliac thrombosis [...] of this encounter (statuses as of 03/02/2022) [facility]04-24-2020 History of Past illness Narrative* Problem [...] Neurotoin BID at home Patient started on Sugar Tree postoperatively, pain controlled at time of discharge. [...] of this encounter (statuses as of 03/10/2022) [facility]04-24-2020 History of Past illness Narrative* Problem [...] Neurotoin BID at home Patient started on Sugar Tree postoperatively, pain controlled at time of discharge. Ischemia of extremity 10/14/2013 02/10/2014 Overview: - admitted to [facility] vascular surgery twice in October [...] of this encounter (statuses as of 03/10/2022) [facility]04-24-2020 History of Past illness Narrative* Problem [...] Neurotoin BID at home Patient started on Sugar Tree postoperatively, pain controlled at time of discharge. Ischemia of extremity 10/14/2013 02/10/2014 Overview: - admitted to [facility] vascular surgery twice in October 2013, s/p left femoral endarterectomy with patch, US guided access RCFA, L profundaplasty, RUFUS recanalization & stenting, CRISPIN stenting on 10/23/13 for aorto-occlusive critical limb ischemia - S/p 11/12-11/19/13 [facility] Vascular Surgery for aortoiliac thrombosis [...] of this encounter (statuses as of 03/11/2022) [facility]04-24-2020 History of Past illness Narrative* Problem [...] Neurotoin BID at home Patient started on Sugar Tree postoperatively, pain controlled at time of discharge. Ischemia of extremity 10/14/2013 02/10/2014 Overview: - admitted to [facility] vascular surgery twice in October 2013, s/p left femoral endarterectomy with patch, US guided access RCFA, L profundaplasty, RUFUS recanalization & stenting, CRISPIN stenting on 10/23/13 for aorto-occlusive critical limb ischemia - S/p 11/12-11/19/13 [facility] Vascular Surgery for aortoiliac thrombosis [...] of this encounter (statuses as of 03/11/2022) [facility]04-24-2020 History of Past illness Narrative* Problem [...] Neurotoin BID at home Patient started on Sugar Tree postoperatively, pain controlled at time of discharge. Ischemia of extremity 10/14/2013 02/10/2014 Overview: - admitted to [facility] vascular surgery twice in October 2013, s/p left femoral endarterectomy with patch, US guided access RCFA, L profundaplasty, RUFUS recanalization & stenting, CRISPIN stenting on 10/23/13 for aorto-occlusive critical limb ischemia - S/p 11/12-11/19/13 [facility] Vascular Surgery for aortoiliac thrombosis [...] of this encounter (statuses as of 03/18/2022) [facility]04-24-2020 History of Past illness Narrative* Problem [...] Neurotoin BID at home Patient started on Sugar Tree postoperatively, pain controlled at time of discharge. Ischemia of extremity 10/14/2013 02/10/2014 Overview: - admitted to [facility] vascular surgery twice in October 2013, s/p left femoral endarterectomy with patch, US guided access RCFA, L profundaplasty, RUFUS recanalization & stenting, CRISPIN stenting on 10/23/13 for aorto-occlusive critical limb ischemia - S/p 11/12-11/19/13 [facility] Vascular Surgery for aortoiliac thrombosis [...] of this encounter (statuses as of 03/24/2022) [facility]04-24-2020 History of Past illness Narrative* Problem [...] Neurotoin BID at home Patient started on Sugar Tree postoperatively, pain controlled at time of discharge. Ischemia of extremity 10/14/2013 02/10/2014 Overview: - admitted to [facility] vascular surgery twice in October 2013, s/p left femoral endarterectomy with patch, US guided access RCFA, L profundaplasty, RUFUS recanalization & stenting, CRISPIN stenting on 10/23/13 for aorto-occlusive critical limb ischemia - S/p 11/12-11/19/13 [facility] Vascular Surgery for aortoiliac thrombosis [...] of this encounter (statuses as of 04/01/2022) [facility]04-24-2020 History of Past illness Narrative* Problem [...] Neurotoin BID at home Patient started on Sugar Tree postoperatively, pain controlled at time of discharge. Ischemia of extremity 10/14/2013 02/10/2014 Overview: - admitted to [facility] vascular surgery twice in October 2013, s/p left femoral endarterectomy with patch, US guided access RCFA, L profundaplasty, RUFUS recanalization & stenting, CRISPIN stenting on 10/23/13 for aorto-occlusive critical limb ischemia - S/p 11/12-11/19/13 [facility] Vascular Surgery for aortoiliac thrombosis [...] of this encounter (statuses as of 06/19/2022) [facility]04-24-2020 History of Past illness Narrative* Problem [...] Neurotoin BID at home Patient started on Sugar Tree postoperatively, pain controlled at time of discharge. Ischemia of extremity 10/14/2013 02/10/2014 Overview: - admitted to [facility] vascular surgery twice in October 2013, s/p left femoral endarterectomy with patch, US guided access RCFA, L profundaplasty, RUFUS recanalization & stenting, CRISPIN stenting on 10/23/13 for aorto-occlusive critical limb ischemia - S/p 11/12-11/19/13 [facility] Vascular Surgery for aortoiliac thrombosis [...] of this encounter (statuses as of 08/02/2022) [facility]04-24-2020 History of Past illness Narrative* Problem [...] for aorto-occlusive critical limb ischemia, CAD previous SC, DM, HTN, DLD, COPD, UC/IBD on sulfasalazine [...] Neurotoin BID at home Patient started on Sugar Tree postoperatively, pain controlled at time of discharge. Urinary retention 10/25/2013 08/18/2022 Overview: Home med: tamsulosin Plan: -Resume Tamsulosin DISPOSITION AND FOLLOW-UP 10/25/20132022 Overview: CM following for d/c needs. PT/OT to evaluate-->recommending home PT 07/08/2014 Discharge with home care today Ischemia of extremity 10/14/2013 02/10/2014 Overview: - admitted to [facility] vascular surgery twice in October [...] of this encounter (statuses as of 08/25/2022) [facility]04-24-2020 History of Past illness Narrative* Problem [...] for aorto-occlusive critical limb ischemia, CAD previous SC, DM, HTN, DLD, COPD, UC/IBD on sulfasalazine [...] Neurotoin BID at home Patient started on Sugar Tree postoperatively, pain controlled at time of discharge. Urinary retention 10/25/2013 08/18/2022 Overview: Home med: tamsulosin Plan: -Resume Tamsulosin DISPOSITION AND FOLLOW-UP 10/25/20132022 Overview: CM following for d/c needs. PT/OT to evaluate-->recommending home PT 07/08/2014 Discharge with home care today Ischemia of extremity 10/14/2013 02/10/2014 Overview: - admitted to [facility] vascular surgery twice in October [...] of this encounter (statuses as of 08/27/2022) [facility]04-24-2020 History of Past illness Narrative* Problem [...] for aorto-occlusive critical limb ischemia, CAD previous SC, DM, HTN, DLD, COPD, UC/IBD on sulfasalazine [...] Neurotoin BID at home Patient started on Sugar Tree postoperatively, pain controlled at time of discharge. Urinary retention 10/25/2013 08/18/2022 Overview: Home med: tamsulosin Plan: -Resume Tamsulosin DISPOSITION AND FOLLOW-UP 10/25/20132022 Overview: CM following for d/c needs. PT/OT to evaluate-->recommending home PT 07/08/2014 Discharge with home care today Ischemia of extremity 10/14/2013 02/10/2014 Overview: - admitted to [facility] vascular surgery twice in October [...] of this encounter (statuses as of 08/27/2022) [facility]04-24-2020 History of Past illness Narrative* Problem [...] for aorto-occlusive critical limb ischemia, CAD previous SC, DM, HTN, DLD, COPD, UC/IBD on sulfasalazine [...] Neurotoin BID at home Patient started on Sugar Tree postoperatively, pain controlled at time of discharge. Urinary retention 10/25/2013 08/18/2022 Overview: Home med: tamsulosin Plan: -Resume Tamsulosin DISPOSITION AND FOLLOW-UP 10/25/20132022 Overview: CM following for d/c needs. PT/OT to evaluate-->recommending home PT 07/08/2014 Discharge with home care today Ischemia of extremity 10/14/2013 02/10/2014 Overview: - admitted to [facility] vascular surgery twice in October 2013, s/p left femoral endarterectomy with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 Anticoagulation goal of INR 2 to 3 Encounter for therapeutic drug monitoring Hypertension Unspecified essential hypertension s/p left femoral endarterectomy/aortoiliac stenting 10/2013 Peripheral vascular disease, unspecified Elevated glucose Other abnormal glucose COPD (chronic obstructive pulmonary disease) ([facility]) Chronic airway obstruction, not elsewhere classified Back pain Backache, unspecified PVD (peripheral vascular disease) ([facility])- Primary Peripheral vascular disease, unspecified COPD (chronic obstructive pulmonary disease) ([facility]) Chronic airway obstruction, not elsewhere classified Anticoagulation goal of INR 2 to 3 Encounter for therapeutic drug monitoring Anemia due to acute blood loss Acute posthemorrhagic anemia Hypertension Unspecified essential hypertension Hyperlipidemia Other and unspecified hyperlipidemia Tobacco use disorder Ulcerative colitis (HCC)- Primary Ulcerative colitis, unspecified PVD (peripheral vascular disease) ([facility]) Peripheral vascular disease, unspecified Lupus anticoagulant disorder [...] elsewhere classified COPD (chronic obstructive pulmonary disease) ([facility])- Primary Chronic airway obstruction, not elsewhere classified [...] Coronary atherosclerosis of unspecified type of vessel, [place] or graft PVD (peripheral vascular disease) (HCC) [...] hypercoagulable state Pulmonary emphysema, unspecified emphysema type ([facility]) Need for vaccination Need for prophylactic vaccination and inoculation against unspecified single disease Pre-operative examination- Primary Preoperative examination, unspecified PVD (peripheral vascular disease) ([facility]) Peripheral vascular disease, unspecified Coronary artery disease, angina presence unspecified, unspecified vessel or lesion type, unspecified whether [place] or transplanted heart Mixed hyperlipidemia Essential hypertension [...] Pain in limb [facility] COPD (chronic obstructive pulmonary disease) ([facility])- Primary Chronic airway obstruction, not elsewhere classified Urinary retention with incomplete bladder emptying Incomplete bladder emptying Anticoagulation goal of INR 2 to 3 Encounter for therapeutic drug monitoring PVD (peripheral vascular disease) (HCC) Peripheral vascular disease, unspecified Encounter to establish care Other reasons for seeking consultation GI bleeding- Primary Acute posthemorrhagic anemia Lupus anticoagulant disorder ([facility]) Primary hypercoagulable state Dysuria- Primary GI bleeding Acute posthemorrhagic anemia Lupus anticoagulant disorder ([facility]) Primary hypercoagulable state PVD (peripheral vascular disease) ([facility]) Peripheral vascular disease, unspecified IBD (inflammatory bowel disease) Other and unspecified noninfectious gastroenteritis and colitis Blurring of vision Other specified visual disturbances Anticoagulation goal of INR 2 to 3 Encounter for therapeutic drug monitoring Hypertension Unspecified essential hypertension s/p left femoral endarterectomy/aortoiliac stenting 10/2013 Peripheral vascular disease, unspecified Elevated glucose Other abnormal glucose COPD (chronic obstructive pulmonary disease) ([facility]) Chronic airway obstruction, not elsewhere classified Back pain Backache, unspecified PVD (peripheral vascular disease) ([facility])- Primary Peripheral vascular disease, unspecified COPD (chronic obstructive pulmonary disease) ([facility]) Chronic airway obstruction, not elsewhere classified Anticoagulation goal of INR 2 to 3 Encounter for therapeutic drug monitoring Anemia due to acute blood loss Acute posthemorrhagic anemia Hypertension Unspecified essential hypertension Hyperlipidemia Other and unspecified hyperlipidemia Tobacco use disorder Ulcerative colitis ([facility])- Primary Ulcerative colitis, unspecified PVD (peripheral vascular disease) ([facility]) Peripheral vascular disease, unspecified Lupus anticoagulant disorder ([facility]) Primary hypercoagulable state Tobacco use disorder Melena Blood in stool COPD (chronic obstructive pulmonary disease) ([facility]) Chronic airway obstruction, not elsewhere classified Dark urine Other nonspecific finding on examination of urine Hospital discharge follow-up- Primary Other follow-up examination Hypertension Unspecified essential hypertension Hematoma, postoperative Hematoma complicating a procedure s/p left femoral endarterectomy/aortoiliac stenting 10/2013 Peripheral vascular disease, unspecified COPD (chronic obstructive pulmonary disease) ([facility]) Chronic airway obstruction, not elsewhere classified Melena Blood in stool Depression Depressive disorder, not elsewhere classified COPD (chronic obstructive pulmonary disease) ([facility])- Primary Chronic airway obstruction, not elsewhere classified [...] Coronary atherosclerosis of unspecified type of vessel, [place] or graft PVD (peripheral vascular disease) ([facility]) Peripheral vascular disease, unspecified Melena Blood in [...] unspecified vessel or lesion type, unspecified whether [place] or transplanted heart Mixed hyperlipidemia Essential hypertension [...] hematuria, site unspecified [facility] Diagnosis Onset Date Resolution Status Admit Date Acute diarrhea acute August 25, 2024 6:12pm Debility acute August 25 6:12pm Weakness acute August 25 6:12pm 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 August [id number] 6:12pm [facility] Work Phone: Evaluation note* Diagnosis [...] abnormal glucose COPD (chronic obstructive pulmonary disease) ([facility]) Chronic airway obstruction, not elsewhere classified Back pain Backache, unspecified PVD (peripheral vascular disease)- Primary Peripheral vascular disease, unspecified COPD (chronic obstructive pulmonary disease) ([facility]) Chronic airway obstruction, not elsewhere classified Anticoagulation [...] in stool COPD (chronic obstructive pulmonary disease) ([facility]) Chronic airway obstruction, not elsewhere classified Dark urine Other nonspecific finding on examination of urine Hospital discharge follow-up- Primary Other follow-up examination Hypertension Unspecified essential hypertension Hematoma, postoperative Hematoma complicating a procedure s/p left femoral endarterectomy/aortoiliac stenting 10/2013 Peripheral vascular disease, unspecified COPD (chronic obstructive pulmonary disease) ([facility]) Chronic airway obstruction, not elsewhere classified Melena Blood in stool Depression Depressive disorder, not elsewhere classified COPD (chronic obstructive pulmonary disease) ([facility])- Primary Chronic airway obstruction, not elsewhere classified [...] Coronary atherosclerosis of unspecified type of vessel, [place] or graft PVD (peripheral vascular disease) Peripheral [...] unspecified vessel or lesion type, unspecified whether [place] or transplanted heart Mixed hyperlipidemia Essential hypertension [...] malaise and fatigue [facility] COPD (chronic obstructive pulmonary [...] abnormal glucose COPD (chronic obstructive pulmonary disease) ([facility]) Chronic airway obstruction, not elsewhere classified Back pain Backache, unspecified PVD (peripheral vascular disease)- Primary Peripheral vascular disease, unspecified COPD (chronic obstructive pulmonary disease) ([facility]) Chronic airway obstruction, not elsewhere classified Anticoagulation goal of INR 2 to 3 Encounter for therapeutic drug monitoring Anemia due to acute blood loss Acute posthemorrhagic anemia Hypertension Unspecified essential hypertension Hyperlipidemia Other and unspecified hyperlipidemia Tobacco use disorder Ulcerative colitis ([facility])- Primary Ulcerative colitis, unspecified PVD (peripheral vascular disease) Peripheral vascular disease, unspecified Lupus anticoagulant disorder ([facility]) Primary hypercoagulable state Tobacco use disorder Melena Blood in stool COPD (chronic obstructive pulmonary disease) ([facility]) Chronic airway obstruction, not elsewhere classified Dark urine Other nonspecific finding on examination of urine Hospital discharge follow-up- Primary Other follow-up examination Hypertension Unspecified essential hypertension Hematoma, postoperative Hematoma complicating a procedure s/p left femoral endarterectomy/aortoiliac stenting 10/2013 Peripheral vascular disease, unspecified COPD (chronic obstructive pulmonary disease) ([facility]) Chronic airway obstruction, not elsewhere classified Melena Blood in stool Depression Depressive disorder, not elsewhere classified COPD (chronic obstructive pulmonary disease) ([facility])- Primary Chronic airway obstruction, not elsewhere classified [...] Coronary atherosclerosis of unspecified type of vessel, [place] or graft PVD (peripheral vascular disease) Peripheral [...] unspecified vessel or lesion type, unspecified whether [place] or transplanted heart Mixed hyperlipidemia Essential hypertension [...] Educational circumstance Wheezing [facility] Diagnosis COPD (chronic obstructive pulmonary [...] Coronary atherosclerosis of unspecified type of vessel, [place] or graft PVD (peripheral vascular disease) Peripheral [...] unspecified vessel or lesion type, unspecified whether [place] or transplanted heart Mixed hyperlipidemia Essential hypertension [...] on supplemental oxygen [facility] Diagnosis COPD (chronic obstructive pulmonary disease) ([facility])- Primary Chronic airway obstruction, not elsewhere classified [...] Coronary atherosclerosis of unspecified type of vessel, [place] or graft PVD (peripheral vascular disease) Peripheral [...] unspecified vessel or lesion type, unspecified whether [place] or transplanted heart Mixed hyperlipidemia Essential hypertension [...] Shortness of breath [facility] Diagnosis COPD (chronic obstructive pulmonary disease) [...] elsewhere classified COPD (chronic obstructive pulmonary disease) ([facility])- Primary Chronic airway obstruction, not elsewhere classified [...] Coronary atherosclerosis of unspecified type of vessel, [place] or graft PVD (peripheral vascular disease) Peripheral [...] unspecified vessel or lesion type, unspecified whether [place] or transplanted heart Mixed hyperlipidemia Essential hypertension [...] and unspecified hyperlipidemia [facility] Author Fran Cartwright [facility] March 30, 2023 8:08pm Note Date/Time March 30, 2023 7 :32pm [facility] Medical Records Department [address] [place] [address] H&P Exam - Hospitalist 03/30/231931 MR#: [id number] Acct: [id number] Name: PEDRO PABLO SIERRA Rep #:[id number] : 1950 72 From: Fran Cartwright MD PCP: Dr. Daija Morton MD Status:ADM I N Location: MS3 LN617-6 HPI - General General Date of Admission: [...] patient has a burning sensation with urination. [facility] Medical History (Updated 03/30/23 @ 20:04 by [...] 79.2 H, Lymph % (Auto) 9.3 L, Gonzales % (Auto) 10.5 H, Eos % (Auto) [...] Sl. Cloudy, Urine pH 6.0, Ur Specific [place] 1.020, Urine Protein 100 H, Urine Glucose [...] 17:14 EDT Reading Location ID and State: [employer] , Service support , Shoulder X-Ray 03/30/23 15:46 IMPRESSION: Mild degenerative disease as described with no acute fracture or subluxation. Electronically Signed: Irish Velásquez MD at 17:15 EDT Reading Location ID and State: [employer] , Service support , Thoracic Spine CT 03/30/23 15:46 IMPRESSION: Diffuse osteopenia/osteoporosis with minimal compression fracture of T11, exact age indeterminate. No retropulsion or extension to the pedicles visualized. Underlying degenerative disease. No subluxation. Electronically Signed: Irish Velásquez MD at 17:12 EDT Reading Location ID and State: [employer] , Service support , Chest X-Ray 03/30/23 16:30 IMPRESSION: No acute cardiac pulmonary disease. Electronically Signed: Irish Velásquez MD at 17:15 EDT Reading Location ID and State: [employer] , Service support , Assessment & Plan [...] documentation, 70minutes. Charges/Coding Visit Charges Inpatient E&M: 67131 Init Hosp L3 03/30/232007 <Electronically signed by Fran Cartwright MD> Cosigner Signature (if applicable): CC: Dr. Daija Morton MD; Dr. Fran Cartwright MD~ Signed [facility] Work Phone: History and physical note Author Андрей Cooley [facility] July 24, 2023 9:10pm Note Date/Time July 24, 2023 9 :10pm [facility] Medical Records Department [address] [place] [address] History & Physical Exam 07/24/232103 MR#: [id number] Acct: [id number] Name: PEDRO PABLO SIERRA Rep #:[id number] : 1950 73 From: Андрей Cooley MD [...] past medical history of recent discharge from skilled nursing for debility and weakness. Patient does also have a history of long-term smoking. Patient denies any chest pain, shortness of breath fevers or chills at present time. He will be admitted for pain control and case management to arrange for shelter care facility. [facility] Medical History Asthma Atrial fibrillation Chronic pain [...] 74.0 H, Lymph % (Auto) 16.0 L, Gonzales % (Auto) 7.3, Eos % (Auto) 1.1, [...] 17:27 EST Reading Location ID and State: [address] [place] [address] Tel , Service support , Assessment & [...] on anticoagulation Charges/Coding Visit Charges Inpatient E&M: 53505 Init Hosp L2 07/24/232109 <Electronically signed by Андрей Cooley MD> Cosigner Signature (if applicable): CC: Dr. Daija Morton MD; Dr. Андрей Cooley MD~ Signed [facility] Work Phone: History and physical note Author Lisha Talamantes [facility] Note Date/Time August 25, 2024 7:00 pm [facility] Medical Records Department [address] [place] [address] H&P Exam - Hospitalist 08/25/24 1820 MR#: [id number] Acct: [id number] Name: PEDRO PABLO SIERRA Rep #:[id number] : 1950 74 From: Lisha Talamantes DO PCP: Dr. Daija Morton MD Status:ADM I NO Location: [facility] [place] FB480-4 HPI - General General Date of Admission: 08/25/24 Date of Service: 08/25/24 Chief Complaint: Diarrhea/generalized weakness HPI Narrative PEDRO PABLO SIERRA, is a 74 M who presented to the emergency department [facility] on 08/25/2024 with a chief complaint of generalized weakness and diarrhea. Patient had recently been at [facility] and was discharged about 5 days [...] Chest x-ray is unremarkable for acute findings. [facility] Medical History Compression fx, lumbar spine Hypertension [...] 78.4 H, Lymph % (Auto) 10.3 L, Gonzales % (Auto) 9.9, Eos % (Auto) 0.3, [...] IMPRESSION: No acute airspace abnormality. Reading [facility] Assessment & Plan Assessment/Plan (1) Acute diarrhea: [...] the current livingenvironment -Was recently discharged from [facility] however patient wasadamant that he did [...] need clarified Charges/Coding Visit Charges Inpatient E&M: 44507 Init Hosp L2 08/25/24 1900 <Electronically signed by Lisha Talamantes DO> Cosigner Signature (if applicable): CC: Dr. Daija Morton MD; Dr. Lisha Talamantes DO~ Signed [facility] Work Phone: History and physical note Author Shilpa Contreras [facility] Note Date/Time December 13, 2024 8:50 pm [facility] Medical Records Department [address] [place] [address] H&P Exam - Hospitalist 12/13/241948 MR#: [id number] Acct: [id number] Name: PEDRO PABLO SIERRA Rep #:[id number] : 1950 74 From: Shilpa Contreras MD PCP: Dr. Daija Morton MD Status:ADM I N Location: [place] [address] HPI - General General Date of Admission: [...] PJ, Tobacco use who presents to the [facility] ED on 12/13/2024 with history of worsening [...] component requested ABG and will trial BiPAP. [facility] Medical History Weakness Debility Failure to thrive [...] % (Auto) 67.3, Lymph % (Auto) 19.5, Gonzales% (Auto) 8.9, Eos % (Auto) 3.0, Baso [...] significant change since last exam. Reading Location: [id number] Assessment & Plan Assessment/Plan (1) COPD exacerbation: [...] PJ, Tobacco use who presents to the [facility] ED on 12/13/2024 with history of worsening [...] 0.9. #16. CODE status: Patient healthcare power prosecuting attorney and living will are not in [...] 16 minutes. Charges/Coding Visit Charges Inpatient E&M: 37212 Init Hosp L3 Procedures Hospitalists Procedures: 46908 Advncd Care Plan 30 Min 12/13/242049 <Electronically signed by Shilpa Contreras MD> Cosigner Signature (if applicable): CC: Dr. Shilpa Contreras MD; Dr. Daija Morton MD~ Signed [facility] Work Phone: [facility] Dis[facility] instructionsWTriHealth Work Phone: [phone] Discharge instructionsWT[facility]Health Work Phone: [phone] Discharge instructionsWTriHealth Work Phone: [phone] Discharge instructionsWT[facility]Health Work Phone: [phone] Discharge instructionsWTriHealth Work Phone: [phone] Discharge instructionsWTriHealth Work Phone: [phone] Discharge instructions Additional Instructions Ice to your rib cage. Support your sore ribs with a pillow. Your chest x-ray did not show any broken ribs sometimes however there are small cracks in the ribs we cannot see on the x-ray. Sugar Tree for more severe pain. Otherwise use Tylenol. If you are using the pain medication Sugar Tree then do not use Tylenol with it. Follow-up with your doctor as needed. Keep the wounds on your forearms clean. Clean daily with soap and water. Patient apply antibiotic ointment. Watch for any signs of infection if seen follow-up.[facility] Work Phone: Hospital Discharge instructions Additional Instructions Please use the walker and follow-up with your primary care doctor.[facility] Work Phone: Progress note No data available for this section [facility] Reason for referral (narrative)* Outpatient Procedure (Routine) - Closed Specialty Diagnoses / Procedures Referred By Contchelo t Referred To [facility] Diagnoses COPD with chronic bronchitis (HCC) Procedures OXIMETRY WITH AMBULATION NONINVASIVE EAR/PULSE OXIMETRY MULTIPLE Emilie Ko PA-C [address] [address] [facility] [place] [address] [place] [address] Referral ID Status Reason Start Date Expiration Date V isits Requested Visits Authorized [id number] Closed Auto-Generate d Referral 11/05/2021 06/18/2022 1 1 * Outpatient Procedure (Routine) - Closed Specialty Diagnoses / Procedures Referred By Contac t Ref[facility] Diagnoses COPD with chronic bronchitis (HCC) Procedures LUNG DIFFUSION CAPACITY (DLCO) DIFFUSING CAPACITY Emilie Jauregui PA-C [address] [place] [address] [address] Referral ID Status Reason Start Date Expiration Date V isits Requested Visits Authorized [id number] Closed Auto-Generate d Referral 11/05/2021 06/18/2022 1 1 * Outpatient Procedure (Routine) - Closed Specialty Diagnoses / Procedures Referred By Contac t Referred [facility] Diagnoses COPD with chronic bronchitis (HCC) Procedures SPIROMETRY BASELINE ONLY SPMTRY W/VC EXPIRATORY BRIAN W/WO MXML VOL VNTJ Emilie Jauregui PA-C [address] [place] [address] [address] Referral ID Status Reason Start Date Expiration Date V isits Requested Visits Authorized [id number] Closed Auto-Generate d Referral 11/05/2021 06/18/2022 1 1 [facility] for referral (narrative)* Outpatient Procedure (Routine) - Pending Review Specialty Diagnoses / Procedures Referred By Contac t Referred To Contact [facility] Diagnoses Essential hypertension Chest pain, unspecified type Procedures ECG COMPLETE ECG ROUTINE ECG W/LEAST 12 LDS W/I&R Anjel Braga APRN.QUALITY ENGINEER [address] [place] [address] Heart [facility] [address] [address] Referral ID Status Reason Start Date Expiration Date Visits Requested Visits Authorized [id number] Pending Review Auto-Generat ed Referral 01/28/2022 01/28/2023 1 1 [facility] for referral (narrative)* Outpatient Procedure (Routine) - Authorized Specialty Diagnoses / Procedures Referred By Contac t Referred To Contact [facility] Diagnoses PVD (peripheral vascular disease) (HCC) Procedures PVR LEG COREY VAS LAB PVR LEG COREY VAS LAB NON-INVASIVE PHYSIOLOGIC STUDY EXTREMITY [address] [place] [address] [place] [id number] [address] Referral ID Status Reason Start Date Expiration Date Visits Requested Visits Authorized [id number] Authorized Auto-Generat ed Referral 01/31/2022 01/31/2023 1 1 [facility] for referral (narrative)* Outpatient Procedure (Routine) - Authorized Specialty Diagnoses / Procedures Referred By Contac t Referred To Contact [facility] Diagnoses Peripheral arterial disease (HCC) PVD (peripheral vascular disease) (HCC) Procedures PVR LEG COREY VAS LAB NON-INVASIVE PHYSIOLOGIC STUDY EXTREMITY 3 [place] [address] [place] [address] [address] Referral ID Status Reason Start Date Expiration Date Visits Requested Visits Authorized [id number] Authorized Auto-Generat ed Referral 12/26/2022 12/26/2023 1 1 [facility] for referral (narrative)* Outpatient Procedure (Routine) - Authorized Specialty Diagnoses / Procedures Referred By Contac t Referred To Contact [facility] Diagnoses Peripheral arterial disease (HCC) Procedures PVR LEG COREY VAS LAB NON-INVASIVE PHYSIOLOGIC STUDY EXTREMITY [address] [place] [address] [place] [address] [facility] [place] [address] Referral ID Status Reason Start Date Expiration Date Visits Requested Visits Authorized [id number] Authorized Auto-Generat ed Referral 01/02/2024 01/01/2025 1 1 [facility] ([facility])No reason for referral information availableWTriHealth Work Phone: Summary Purpose Family History Relationship [...] Documents on File Type Date Recorded Patient Social Service Worker Expl anation Advance Directive(s) 10/24/2019 3:38 PM [...] Documents on File Type Date Recorded Patient Social Service Worker Expl anation Advance Directive(s) 08/29/2021 6:53 PM Advance Directive(s) 08/22/2021 7:53 PM Advance Directive(s) 04/10/2020 4:06 PM Advance Directive(s) 12/17/2019 10:49 AM Advance Directive(s) 10/24/2019 3:38 PM Advance Directive(s) 10/17/2019 9:43 AM Advance Directive(s) 10/08/2019 7:18 AM Advance Directive(s) 09/04/2019 1:38 PM Advance Directive(s) 02/07/2016 12:11 AM Advance Directive Response Recorded Date/ Time Name of Medical Power of Aerophysicist eloina stephens e- ex August 12, 2021 1:39am Name of Medical Power of Aerophysicist Joseph Burrell August 18, 2021 11:56pm Advance Directives Yes March 22, 2016 4:03pm Living Will No September 17, 2021 5:48pm Power of Aerophysicist Yes September 17 5:48pm Advance Directive Response Recorded Date/ Time Name of Medical Power of Aerophysicist eloina setphens e- ex August 12, 2021 1:39am Name of Medical Power of Aerophysicist Joseph Burrell August 18, 2021 11:56pm Name of Medical Power of Aerophysicist joseph ubrrell September 17, 2021 5:48pm Advance Directives Yes March 22, 2016 4:03pm Living Will No October 08, 2021 2:20pm Power of Aerophysicist No October 08 2:20pm Documents on File Type Date Recorded Patient Social Service Worker Expl anation Advance Directive(s) 08/29/2021 6:53 PM [...] Date/ Time Name of Medical Power of Aerophysicist eloina stephens e- ex August 12, 2021 1:39am Name of Medical Power of Aerophysicist Joseph Burrell August 18, 2021 11:56pm Name of Medical Power of Aerophysicist joseph burrell September 17, 2021 5:48pm Advance Directives Yes March 22, 2016 4:03pm Living Will Yes November 25, 2021 5 :33pm Power of Aerophysicist Yes November 25, 2021 5:33pm Advance Directive Response Recorded Date/ Time Name of Medical Power of Aerophysicist eloina stephens e- ex August 12, 2021 1:39am Name of Medical Power of Aerophysicist Joseph Burrell August 18, 2021 11:56pm Name of Medical Power of Aerophysicist joseph burrell September 17, 2021 5:48pm Advance Directives Yes March 22, 2016 4:03pm Living Will Yes November 25, 2021 1 1:06pm Power of Aerophysicist No November 25, 2021 11:06pm Advance Directive Response Recorded Date/ Time Name of Medical Power of Aerophysicist Joseph Burrell August 18, 2021 11:56pm Name of Medical Power of Aerophysicist joseph burrell September 17, 2021 5:48pm Name of Medical Power of Aerophysicist MICHELLE RICHMOND November 25, 2021 5:33pm Advance Directives Yes March 22, 2016 4:03pm Living Will Yes November 25, 2021 1 1:06pm Power of Aerophysicist No November 25, 2021 11:06pm Advance Directive Response Recorded Date/ Time Name of Medical Power of Aerophysicist joseph burrell September 17, 2021 5:48pm Name of Medical Power of Aerophysicist MICHELLE RICHMOND November 25, 2021 5:33pm Advance Directives Yes March 22, 2016 4:03pm Living Will Yes November 25, 2021 1 1:06pm Power of Aerophysicist No November 25, 2021 11:06pm Advance Directive Response Recorded Date/ Time Name of Medical Power of Aerophysicist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 [id number] Authorized PCP Requested Referral 11/21/2023 11/20/2024 1 1 Specialty Diagnoses / Procedures Referred By Morris dixon Referred To Contact Diagnoses COPD with chronic bronchitis (HCC) Rebekah Luu PA-C [address] [place] [address] Referral ID Status Reason Start Date Expiration Date Visits Re quested Visits Authorized [id number] Closed 1 1 Specialty Diagnoses / Procedures Referred By Contac t Referred To Contact Marquita Braga APRN.QUALITY ENGINEER [address] [place] [address] Referral ID Status Reason Start Date Expiration Date V isits Requested Visits Authorized [id number] Authorized 08/29/2022 06/18/2023 1 1 Specialty Diagnoses / Procedures Referred By Contac t Referred To Contact Harriett Albert APRN.ELECTRICIAN YARD [address] [place] [address] Referral ID Status Reason Start Date Expiration Date Visits Re quested Visits Authorized [id number] Closed 1 1 Specialty Diagnoses / Procedures Referred By Contac t Referred To Contact Gastroenterology Diagnoses Acute blood loss anemia Angiodysplasia of colon with hemorrhage Procedures CONSULT TO GASTROENTEROLOGY OFFICE/OUTPATIENT [facility] MDM 60-74 MINUTES Harriett Albert APRN.ELECTRICIAN YARD [address] [place] [address] Referral ID Status Reason Start Date Expiration Date Visits Requested Visits Authorized [id number] Pending Review PCP Requested Referral 01/14/2022 01/14/2023 1 1 Specialty Diagnoses / Procedures Referred By Contac t Referred To Contact Anjel Braga APRN.QUALITY ENGINEER [address] [place] [address] Referral ID Status Reason Start Date Expiration Date Visits Re quested Visits Authorized [id number] Closed 1 1 Medications Administered Section Administered [...] section and content) DATE CREATED AUTHOR 01/09/2020 [facility] DATE CREATED AUTHOR AUTHOR'S ORGANIZ ATION 04/03/2020 [facility] DATE CREATED AUTHOR AUTHOR'S ORGANIZ ATION 04/11/2020 [facility] DATE CREATED AUTHOR AUTHOR'S ORGANIZ ATION 01/26/2022 [facility] DATE CREATED AUTHOR AUTHOR'S ORGANIZ ATION 07/16/2023 [facility] DATE CREATED AUTHOR AUTHOR'S ORGANIZ ATION 12/28/2024 [facility] DATE CREATED AUTHOR AUTHOR'S ORGANIZ ATION 01/02/2025 [facility] Comments (unrecognize d section and content) In the event this informatio n is protected by the Federal Confidentiality of Alcohol and Drug Abuse Patient Records regulations: The Federal rules restrict any use of the information to criminally investigate or prosecute any alcohol or drug abuse patient.[facility] the event this information is protected by the Federal Confidentiality of Alcohol and Drug Abuse Patient Records regulations: The Federal rules restrict any use of the information to criminally investigate or prosecute any alcohol or drug abuse patient.[facility] the event this information is protected by the Federal Confidentiality of Alcohol and Drug Abuse Patient Records regulations: The Federal rules restrict any use of the information to criminally investigate or prosecute any alcohol or drug abuse patient.[facility] the event this information is protected by the Federal Confidentiality of Alcohol and Drug Abuse Patient Records regulations: The Federal rules restrict any use of the information to criminally investigate or prosecute any alcohol or drug abuse patient.[facility] the event this information is protected by the Federal Confidentiality of Alcohol and Drug Abuse Patient Records regulations: The Federal rules restrict any use of the information to criminally investigate or prosecute any alcohol or drug abuse patient.[facility] the event this information is protected by the Federal Confidentiality of Alcohol and Drug Abuse Patient Records regulations: The Federal rules restrict any use of the information to criminally investigate or prosecute any alcohol or drug abuse patient.[facility] the event this information is protected by the Federal Confidentiality of Alcohol and Drug Abuse Patient Records regulations: The Federal rules restrict any use of the information to criminally investigate or prosecute any alcohol or drug abuse patient.[facility] the event this information is protected by the Federal Confidentiality of Alcohol and Drug Abuse Patient Records regulations: The Federal rules restrict any use of the information to criminally investigate or prosecute any alcohol or drug abuse patient.[facility] the event this information is protected by the Federal Confidentiality of Alcohol and Drug Abuse Patient Records regulations: The Federal rules restrict any use of the information to criminally investigate or prosecute any alcohol or drug abuse patient.[facility] the event this information is protected by the Federal Confidentiality of Alcohol and Drug Abuse Patient Records regulations: The Federal rules restrict any use of the information to criminally investigate or prosecute any alcohol or drug abuse patient.[facility]In the event this information is protected by the Federal Confidentiality of Alcohol and Drug Abuse Patient Records regulations: The Federal rules restrict any use of the information to criminally investigate or prosecute any alcohol or drug abuse patient.[facility]In the event this information is protected by the Federal Confidentiality of Alcohol and Drug Abuse Patient Records regulations: The Federal rules restrict any use of the information to criminally investigate or prosecute any alcohol or drug abuse patient.[facility]In the event this information is protected by the Federal Confidentiality of Alcohol and Drug Abuse Patient Records regulations: The Federal rules restrict any use of the information to criminally investigate or prosecute any alcohol or drug abuse patient.[facility] HospitalIn the event this information is protected by the Federal Confidentiality of Alcohol and Drug Abuse Patient Records regulations: The Federal rules restrict any use of the information to criminally investigate or prosecute any alcohol or drug abuse patient.[facility] HospitalIn the event this information is protected by the Federal Confidentiality of Alcohol and Drug Abuse Patient Records regulations: The Federal rules restrict any use of the information to criminally investigate or prosecute any alcohol or drug abuse patient.[facility] HospitalIn the event this information is protected by the Federal Confidentiality of Alcohol and Drug Abuse Patient Records regulations: The Federal rules restrict any use of the information to criminally investigate or prosecute any alcohol or drug abuse patient.[facility] HospitalIn the event this information is protected by the Federal Confidentiality of Alcohol and Drug Abuse Patient Records regulations: The Federal rules restrict any use of the information to criminally investigate or prosecute any alcohol or drug abuse patient.[facility] HospitalIn the event this information is protected by the Federal Confidentiality of Alcohol and Drug Abuse Patient Records regulations: The Federal rules restrict any use of the information to criminally investigate or prosecute any alcohol or drug abuse patient.[facility] HospitalIn the event this information is protected by the Federal Confidentiality of Alcohol and Drug Abuse Patient Records regulations: The Federal rules restrict any use of the information to criminally investigate or prosecute any alcohol or drug abuse patient.[facility] HospitalIn the event this information is protected by the Federal Confidentiality of Alcohol and Drug Abuse Patient Records regulations: The Federal rules restrict any use of the information to criminally investigate or prosecute any alcohol or drug abuse patient.[facility] HospitalIn the event this information is protected by the Federal Confidentiality of Alcohol and Drug Abuse Patient Records regulations: The Federal rules restrict any use of the information to criminally investigate or prosecute any alcohol or drug abuse patient.[facility] HospitalIn the event this information is protected by the Federal Confidentiality of Alcohol and Drug Abuse Patient Records regulations: The Federal rules restrict any use of the information to criminally investigate or prosecute any alcohol or drug abuse patient.[facility] HospitalIn the event this information is protected by the Federal Confidentiality of Alcohol and Drug Abuse Patient Records regulations: The Federal rules restrict any use of the information to criminally investigate or prosecute any alcohol or drug abuse patient.[facility] HospitalIn the event this information is protected by the Federal Confidentiality of Alcohol and Drug Abuse Patient Records regulations: The Federal rules restrict any use of the information to criminally investigate or prosecute any alcohol or drug abuse patient.[facility] HospitalIn the event this information is protected by the Federal Confidentiality of Alcohol and Drug Abuse Patient Records regulations: The Federal rules restrict any use of the information to criminally investigate or prosecute any alcohol or drug abuse patient.[facility] HospitalIn the event this information is protected by the Federal Confidentiality of Alcohol and Drug Abuse Patient Records regulations: The Federal rules restrict any use of the information to criminally investigate or prosecute any alcohol or drug abuse patient.[facility] HospitalIn the event this information is protected by the Federal Confidentiality of Alcohol and Drug Abuse Patient Records regulations: The Federal rules restrict any use of the information to criminally investigate or prosecute any alcohol or drug abuse patient.[facility] HospitalIn the event this information is protected by the Federal Confidentiality of Alcohol and Drug Abuse Patient Records regulations: The Federal rules restrict any use of the information to criminally investigate or prosecute any alcohol or drug abuse patient.[facility] HospitalIn the event this information is protected by the Federal Confidentiality of Alcohol and Drug Abuse Patient Records regulations: The Federal rules restrict any use of the information to criminally investigate or prosecute any alcohol or drug abuse patient.[facility] HospitalIn the event this information is protected by the Federal Confidentiality of Alcohol and Drug Abuse Patient Records regulations: The Federal rules restrict any use of the information to criminally investigate or prosecute any alcohol or drug abuse patient.[facility] HospitalIn the event this information is protected by the Federal Confidentiality of Alcohol and Drug Abuse Patient Records regulations: The Federal rules restrict any use of the information to criminally investigate or prosecute any alcohol or drug abuse patient.[facility] HospitalIn the event this information is protected by the Federal Confidentiality of Alcohol and Drug Abuse Patient Records regulations: The Federal rules restrict any use of the information to criminally investigate or prosecute any alcohol or drug abuse patient.[facility] HospitalIn the event this information is protected by the Federal Confidentiality of Alcohol and Drug Abuse Patient Records regulations: The Federal rules restrict any use of the information to criminally investigate or prosecute any alcohol or drug abuse patient.[facility] HospitalIn the event this information is protected by the Federal Confidentiality of Alcohol and Drug Abuse Patient Records regulations: The Federal rules restrict any use of the information to criminally investigate or prosecute any alcohol or drug abuse patient.[facility] HospitalIn the event this information is protected by the Federal Confidentiality of Alcohol and Drug Abuse Patient Records regulations: The Federal rules restrict any use of the information to criminally investigate or prosecute any alcohol or drug abuse patient.[facility] HospitalIn the event this information is protected by the Federal Confidentiality of Alcohol and Drug Abuse Patient Records regulations: The Federal rules restrict any use of the information to criminally investigate or prosecute any alcohol or drug abuse patient.[facility] HospitalIn the event this information is protected by the Federal Confidentiality of Alcohol and Drug Abuse Patient Records regulations: The Federal rules restrict any use of the information to criminally investigate or prosecute any alcohol or drug abuse patient.[facility] HospitalIn the event this information is protected by the Federal Confidentiality of Alcohol and Drug Abuse Patient Records regulations: The Federal rules restrict any use of the information to criminally investigate or prosecute any alcohol or drug abuse patient.[facility] HospitalIn the event this information is protected by the Federal Confidentiality of Alcohol and Drug Abuse Patient Records regulations: The Federal rules restrict any use of the information to criminally investigate or prosecute any alcohol or drug abuse patient.[facility] HospitalIn the event this information is protected by the Federal Confidentiality of Alcohol and Drug Abuse Patient Records regulations: The Federal rules restrict any use of the information to criminally investigate or prosecute any alcohol or drug abuse patient.[facility] HospitalIn the event this information is protected by the Federal Confidentiality of Alcohol and Drug Abuse Patient Records regulations: The Federal rules restrict any use of the information to criminally investigate or prosecute any alcohol or drug abuse patient.[facility] HospitalIn the event this information is protected by the Federal Confidentiality of Alcohol and Drug Abuse Patient Records regulations: The Federal rules restrict any use of the information to criminally investigate or prosecute any alcohol or drug abuse patient.[facility] HospitalIn the event this information is protected by the Federal Confidentiality of Alcohol and Drug Abuse Patient Records regulations: The Federal rules restrict any use of the information to criminally investigate or prosecute any alcohol or drug abuse patient.[facility] HospitalIn the event this information is protected by the Federal Confidentiality of Alcohol and Drug Abuse Patient Records regulations: The Federal rules restrict any use of the information to criminally investigate or prosecute any alcohol or drug abuse patient.[facility] HospitalIn the event this information is protected by the Federal Confidentiality of Alcohol and Drug Abuse Patient Records regulations: The Federal rules restrict any use of the information to criminally investigate or prosecute any alcohol or drug abuse patient.[facility] HospitalIn the event this information is protected by the Federal Confidentiality of Alcohol and Drug Abuse Patient Records regulations: The Federal rules restrict any use of the information to criminally investigate or prosecute any alcohol or drug abuse patient.[facility] HospitalIn the event this information is protected by the Federal Confidentiality of Alcohol and Drug Abuse Patient Records regulations: The Federal rules restrict any use of the information to criminally investigate or prosecute any alcohol or drug abuse patient.[facility] HospitalIn the event this information is protected by the Federal Confidentiality of Alcohol and Drug Abuse Patient Records regulations: The Federal rules restrict any use of the information to criminally investigate or prosecute any alcohol or drug abuse patient.[facility] HospitalIn the event this information is protected by the Federal Confidentiality of Alcohol and Drug Abuse Patient Records regulations: The Federal rules restrict any use of the information to criminally investigate or prosecute any alcohol or drug abuse patient.[facility] HospitalIn the event this information is protected by the Federal Confidentiality of Alcohol and Drug Abuse Patient Records regulations: The Federal rules restrict any use of the information to criminally investigate or prosecute any alcohol or drug abuse patient.[facility] HospitalIn the event this information is protected by the Federal Confidentiality of Alcohol and Drug Abuse Patient Records regulations: The Federal rules restrict any use of the information to criminally investigate or prosecute any alcohol or drug abuse patient.[facility] HospitalIn the event this information is protected by the Federal Confidentiality of Alcohol and Drug Abuse Patient Records regulations: The Federal rules restrict any use of the information to criminally investigate or prosecute any alcohol or drug abuse patient.[facility] HospitalIn the event this information is protected by the Federal Confidentiality of Alcohol and Drug Abuse Patient Records regulations: The Federal rules restrict any use of the information to criminally investigate or prosecute any alcohol or drug abuse patient.[facility] HospitalIn the event this information is protected by the Federal Confidentiality of Alcohol and Drug Abuse Patient Records regulations: The Federal rules restrict any use of the information to criminally investigate or prosecute any alcohol or drug abuse patient.[facility] HospitalIn the event this information is protected by the Federal Confidentiality of Alcohol and Drug Abuse Patient Records regulations: The Federal rules restrict any use of the information to criminally investigate or prosecute any alcohol or drug abuse patient.[facility] HospitalIn the event this information is protected by the Federal Confidentiality of Alcohol and Drug Abuse Patient Records regulations: The Federal rules restrict any use of the information to criminally investigate or prosecute any alcohol or drug abuse patient.[facility] HospitalIn the event this information is protected by the Federal Confidentiality of Alcohol and Drug Abuse Patient Records regulations: The Federal rules restrict any use of the information to criminally investigate or prosecute any alcohol or drug abuse patient.[facility] HospitalIn the event this information is protected by the Federal Confidentiality of Alcohol and Drug Abuse Patient Records regulations: The Federal rules restrict any use of the information to criminally investigate or prosecute any alcohol or drug abuse patient.[facility] HospitalIn the event this information is protected by the Federal Confidentiality of Alcohol and Drug Abuse Patient Records regulations: The Federal rules restrict any use of the information to criminally investigate or prosecute any alcohol or drug abuse patient.[facility] HospitalIn the event this information is protected by the Federal Confidentiality of Alcohol and Drug Abuse Patient Records regulations: The Federal rules restrict any use of the information to criminally investigate or prosecute any alcohol or drug abuse patient.[facility] HospitalIn the event this information is protected by the Federal Confidentiality of Alcohol and Drug Abuse Patient Records regulations: The Federal rules restrict any use of the information to criminally investigate or prosecute any alcohol or drug abuse patient.[facility] HospitalIn the event this information is protected by the Federal Confidentiality of Alcohol and Drug Abuse Patient Records regulations: The Federal rules restrict any use of the information to criminally investigate or prosecute any alcohol or drug abuse patient.[facility] HospitalIn the event this information is protected by the Federal Confidentiality of Alcohol and Drug Abuse Patient Records regulations: The Federal rules restrict any use of the information to criminally investigate or prosecute any alcohol or drug abuse patient.[facility] HospitalIn the event this information is protected by the Federal Confidentiality of Alcohol and Drug Abuse Patient Records regulations: The Federal rules restrict any use of the information to criminally investigate or prosecute any alcohol or drug abuse patient.[facility] HospitalIn the event this information is protected by the Federal Confidentiality of Alcohol and Drug Abuse Patient Records regulations: The Federal rules restrict any use of the information to criminally investigate or prosecute any alcohol or drug abuse patient.[facility] HospitalIn the event this information is protected by the Federal Confidentiality of Alcohol and Drug Abuse Patient Records regulations: The Federal rules restrict any use of the information to criminally investigate or prosecute any alcohol or drug abuse patient.[facility] HospitalIn the event this information is protected by the Federal Confidentiality of Alcohol and Drug Abuse Patient Records regulations: The Federal rules restrict any use of the information to criminally investigate or prosecute any alcohol or drug abuse patient.[facility] HospitalIn the event this information is protected by the Federal Confidentiality of Alcohol and Drug Abuse Patient Records regulations: The Federal rules restrict any use of the information to criminally investigate or prosecute any alcohol or drug abuse patient.[facility] HospitalIn the event this information is protected by the Federal Confidentiality of Alcohol and Drug Abuse Patient Records regulations: The Federal rules restrict any use of the information to criminally investigate or prosecute any alcohol or drug abuse patient.[facility] HospitalIn the event this information is protected by the Federal Confidentiality of Alcohol and Drug Abuse Patient Records regulations: The Federal rules restrict any use of the information to criminally investigate or prosecute any alcohol or drug abuse patient.[facility] HospitalIn the event this information is protected by the Federal Confidentiality of Alcohol and Drug Abuse Patient Records regulations: The Federal rules restrict any use of the information to criminally investigate or prosecute any alcohol or drug abuse patient.[facility] HospitalIn the event this information is protected by the Federal Confidentiality of Alcohol and Drug Abuse Patient Records regulations: The Federal rules restrict any use of the information to criminally investigate or prosecute any alcohol or drug abuse patient.[facility] HospitalIn the event this information is protected by the Federal Confidentiality of Alcohol and Drug Abuse Patient Records regulations: The Federal rules restrict any use of the information to criminally investigate or prosecute any alcohol or drug abuse patient.[facility] HospitalIn the event this information is protected by the Federal Confidentiality of Alcohol and Drug Abuse Patient Records regulations: The Federal rules restrict any use of the information to criminally investigate or prosecute any alcohol or drug abuse patient.[facility] HospitalIn the event this information is protected by the Federal Confidentiality of Alcohol and Drug Abuse Patient Records regulations: The Federal rules restrict any use of the information to criminally investigate or prosecute any alcohol or drug abuse patient.[facility] HospitalIn the event this information is protected by the Federal Confidentiality of Alcohol and Drug Abuse Patient Records regulations: The Federal rules restrict any use of the information to criminally investigate or prosecute any alcohol or drug abuse patient.[facility] HospitalIn the event this information is protected by the Federal Confidentiality of Alcohol and Drug Abuse Patient Records regulations: The Federal rules restrict any use of the information to criminally investigate or prosecute any alcohol or drug abuse patient.[facility] HospitalIn the event this information is protected by the Federal Confidentiality of Alcohol and Drug Abuse Patient Records regulations: The Federal rules restrict any use of the information to criminally investigate or prosecute any alcohol or drug abuse patient.[facility] HospitalIn the event this information is protected by the Federal Confidentiality of Alcohol and Drug Abuse Patient Records regulations: The Federal rules restrict any use of the information to criminally investigate or prosecute any alcohol or drug abuse patient.[facility] HospitalIn the event this information is protected by the Federal Confidentiality of Alcohol and Drug Abuse Patient Records regulations: The Federal rules restrict any use of the information to criminally investigate or prosecute any alcohol or drug abuse patient.[facility] HospitalIn the event this information is protected by the Federal Confidentiality of Alcohol and Drug Abuse Patient Records regulations: The Federal rules restrict any use of the information to criminally investigate or prosecute any alcohol or drug abuse patient.[facility] HospitalIn the event this information is protected by the Federal Confidentiality of Alcohol and Drug Abuse Patient Records regulations: The Federal rules restrict any use of the information to criminally investigate or prosecute any alcohol or drug abuse patient.[facility] HospitalIn the event this information is protected by the Federal Confidentiality of Alcohol and Drug Abuse Patient Records regulations: The Federal rules restrict any use of the information to criminally investigate or prosecute any alcohol or drug abuse patient.[facility] HospitalIn the event this information is protected by the Federal Confidentiality of Alcohol and Drug Abuse Patient Records regulations: The Federal rules restrict any use of the information to criminally investigate or prosecute any alcohol or drug abuse patient.[facility] HospitalIn the event this information is protected by the Federal Confidentiality of Alcohol and Drug Abuse Patient Records regulations: The Federal rules restrict any use of the information to criminally investigate or prosecute any alcohol or drug abuse patient.[facility] HospitalIn the event this information is protected by the Federal Confidentiality of Alcohol and Drug Abuse Patient Records regulations: The Federal rules restrict any use of the information to criminally investigate or prosecute any alcohol or drug abuse patient.[facility] HospitalIn the event this information is protected by the Federal Confidentiality of Alcohol and Drug Abuse Patient Records regulations: The Federal rules restrict any use of the information to criminally investigate or prosecute any alcohol or drug abuse patient.[facility] HospitalIn the event this information is protected by the Federal Confidentiality of Alcohol and Drug Abuse Patient Records regulations: The Federal rules restrict any use of the information to criminally investigate or prosecute any alcohol or drug abuse patient.[facility] HospitalIn the event this information is protected by the Federal Confidentiality of Alcohol and Drug Abuse Patient Records regulations: The Federal rules restrict any use of the information to criminally investigate or prosecute any alcohol or drug abuse patient.[facility] HospitalIn the event this information is protected by the Federal Confidentiality of Alcohol and Drug Abuse Patient Records regulations: The Federal rules restrict any use of the information to criminally investigate or prosecute any alcohol or drug abuse patient.[facility] HospitalIn the event this information is protected by the Federal Confidentiality of Alcohol and Drug Abuse Patient Records regulations: The Federal rules restrict any use of the information to criminally investigate or prosecute any alcohol or drug abuse patient.[facility] HospitalIn the event this information is protected by the Federal Confidentiality of Alcohol and Drug Abuse Patient Records regulations: The Federal rules restrict any use of the information to criminally investigate or prosecute any alcohol or drug abuse patient.[facility] HospitalIn the event this information is protected by the Federal Confidentiality of Alcohol and Drug Abuse Patient Records regulations: The Federal rules restrict any use of the information to criminally investigate or prosecute any alcohol or drug abuse patient.[facility] HospitalIn the event this information is protected by the Federal Confidentiality of Alcohol and Drug Abuse Patient Records regulations: The Federal rules restrict any use of the information to criminally investigate or prosecute any alcohol or drug abuse patient.[facility] HospitalIn the event this information is protected by the Federal Confidentiality of Alcohol and Drug Abuse Patient Records regulations: The Federal rules restrict any use of the information to criminally investigate or prosecute any alcohol or drug abuse patient.[facility] HospitalIn the event this information is protected by the Federal Confidentiality of Alcohol and Drug Abuse Patient Records regulations: The Federal rules restrict any use of the information to criminally investigate or prosecute any alcohol or drug abuse patient.[facility] HospitalIn the event this information is protected by the Federal Confidentiality of Alcohol and Drug Abuse Patient Records regulations: The Federal rules restrict any use of the information to criminally investigate or prosecute any alcohol or drug abuse patient.[facility] HospitalIn the event this information is protected by the Federal Confidentiality of Alcohol and Drug Abuse Patient Records regulations: The Federal rules restrict any use of the information to criminally investigate or prosecute any alcohol or drug abuse patient.[facility] HospitalIn the event this information is protected by the Federal Confidentiality of Alcohol and Drug Abuse Patient Records regulations: The Federal rules restrict any use of the information to criminally investigate or prosecute any alcohol or drug abuse patient.[facility] HospitalIn the event this information is protected by the Federal Confidentiality of Alcohol and Drug Abuse Patient Records regulations: The Federal rules restrict any use of the information to criminally investigate or prosecute any alcohol or drug abuse patient.[facility] HospitalIn the event this information is protected by the Federal Confidentiality of Alcohol and Drug Abuse Patient Records regulations: The Federal rules restrict any use of the information to criminally investigate or prosecute any alcohol or drug abuse patient.[facility] HospitalIn the event this information is protected by the Federal Confidentiality of Alcohol and Drug Abuse Patient Records regulations: The Federal rules restrict any use of the information to criminally investigate or prosecute any alcohol or drug abuse patient.[facility] HospitalIn the event this information is protected by the Federal Confidentiality of Alcohol and Drug Abuse Patient Records regulations: The Federal rules restrict any use of the information to criminally investigate or prosecute any alcohol or drug abuse patient.[facility] HospitalIn the event this information is protected by the Federal Confidentiality of Alcohol and Drug Abuse Patient Records regulations: The Federal rules restrict any use of the information to criminally investigate or prosecute any alcohol or drug abuse patient.[facility] HospitalIn the event this information is protected by the Federal Confidentiality of Alcohol and Drug Abuse Patient Records regulations: The Federal rules restrict any use of the information to criminally investigate or prosecute any alcohol or drug abuse patient.[facility] HospitalIn the event this information is protected by the Federal Confidentiality of Alcohol and Drug Abuse Patient Records regulations: The Federal rules restrict any use of the information to criminally investigate or prosecute any alcohol or drug abuse patient.[facility] HospitalIn the event this information is protected by the Federal Confidentiality of Alcohol and Drug Abuse Patient Records regulations: The Federal rules restrict any use of the information to criminally investigate or prosecute any alcohol or drug abuse patient.[facility] HospitalIn the event this information is protected by the Federal Confidentiality of Alcohol and Drug Abuse Patient Records regulations: The Federal rules restrict any use of the information to criminally investigate or prosecute any alcohol or drug abuse patient.[facility] HospitalIn the event this information is protected by the Federal Confidentiality of Alcohol and Drug Abuse Patient Records regulations: The Federal rules restrict any use of the information to criminally investigate or prosecute any alcohol or drug abuse patient.[facility] HospitalIn the event this information is protected by the Federal Confidentiality of Alcohol and Drug Abuse Patient Records regulations: The Federal rules restrict any use of the information to criminally investigate or prosecute any alcohol or drug abuse patient.[facility] HospitalIn the event this information is protected by the Federal Confidentiality of Alcohol and Drug Abuse Patient Records regulations: The Federal rules restrict any use of the information to criminally investigate or prosecute any alcohol or drug abuse patient.[facility] HospitalIn the event this information is protected by the Federal Confidentiality of Alcohol and Drug Abuse Patient Records regulations: The Federal rules restrict any use of the information to criminally investigate or prosecute any alcohol or drug abuse patient.[facility] HospitalIn the event this information is protected by the Federal Confidentiality of Alcohol and Drug Abuse Patient Records regulations: The Federal rules restrict any use of the information to criminally investigate or prosecute any alcohol or drug abuse patient.[facility] HospitalIn the event this information is protected by the Federal Confidentiality of Alcohol and Drug Abuse Patient Records regulations: The Federal rules restrict any use of the information to criminally investigate or prosecute any alcohol or drug abuse patient.[facility] HospitalIn the event this information is protected by the Federal Confidentiality of Alcohol and Drug Abuse Patient Records regulations: The Federal rules restrict any use of the information to criminally investigate or prosecute any alcohol or drug abuse patient.[facility] HospitalIn the event this information is protected by the Federal Confidentiality of Alcohol and Drug Abuse Patient Records regulations: The Federal rules restrict any use of the information to criminally investigate or prosecute any alcohol or drug abuse patient.[facility] HospitalIn the event this information is protected by the Federal Confidentiality of Alcohol and Drug Abuse Patient Records regulations: The Federal rules restrict any use of the information to criminally investigate or prosecute any alcohol or drug abuse patient.[facility] HospitalIn the event this information is protected by the Federal Confidentiality of Alcohol and Drug Abuse Patient Records regulations: The Federal rules restrict any use of the information to criminally investigate or prosecute any alcohol or drug abuse patient.[facility] HospitalIn the event this information is protected by the Federal Confidentiality of Alcohol and Drug Abuse Patient Records regulations: The Federal rules restrict any use of the information to criminally investigate or prosecute any alcohol or drug abuse patient.[facility] HospitalIn the event this information is protected by the Federal Confidentiality of Alcohol and Drug Abuse Patient Records regulations: The Federal rules restrict any use of the information to criminally investigate or prosecute any alcohol or drug abuse patient.[facility] HospitalIn the event this information is protected by the Federal Confidentiality of Alcohol and Drug Abuse Patient Records regulations: The Federal rules restrict any use of the information to criminally investigate or prosecute any alcohol or drug abuse patient.[facility] HospitalIn the event this information is protected by the Federal Confidentiality of Alcohol and Drug Abuse Patient Records regulations: The Federal rules restrict any use of the information to criminally investigate or prosecute any alcohol or drug abuse patient.[facility] HospitalIn the event this information is protected by the Federal Confidentiality of Alcohol and Drug Abuse Patient Records regulations: The Federal rules restrict any use of the information to criminally investigate or prosecute any alcohol or drug abuse patient.[facility] HospitalIn the event this information is protected by the Federal Confidentiality of Alcohol and Drug Abuse Patient Records regulations: The Federal rules restrict any use of the information to criminally investigate or prosecute any alcohol or drug abuse patient.[facility] Reason for Visit (unrecogniz ed section and content) Reason Onset Date Comments Transition Of Care 09/14/2021 TCM Initial [facility] Hospital Discharge 09/13/21 Reason Onset Date Comments Transition Of Care 09/14/2021 TCM Pharmacy- Hospital discharge 09/13/21 Reason Comments Recheck Hosp follow up Specialty Diagnoses / Procedures Referred By Contchelo t Referred To Contact Internal Medicine / INTERNAL MEDICINE Diagnoses hospital follow up Procedures 4C EST HOSP/ER Hans Izquierdo [address] [place] [address] Anjel Braga APRN.QUALITY ENGINEER [address] [place] [address] Referral ID Status Reason Start Date Expiration Date V isits Requested Visits Authorized [id number] Closed Financial Clearance Required - OON Payor Patient Cleared INN/SMCP Payor Auth Obtained 09/15/2021 06/18/2022 1 1 Reason Comments Patient Update Reason Comments Medication Problem Plan of Care Reason Comments Nifedipine issue Reason Onset Date Comments Transition Of Care 09/16/2021 TCM f/u [facility] Hospital Discharge 09/13/21 Reason Comments FYI-OT plan of care Reason Comments Anticoagulation Reason Comments Orders Reason Comments medication issue Reason Comments [facility] verbal order needed Reason Comments Medication Problem Reason Comments Consult gallbladder, abdomen pain Specialty Diagnoses / Procedures Referred By Contac t Referred To Contact General Surgery / GENERAL SURGERY Diagnoses Acute cholecystitis Abdominal pain Acute cholecystitis, persistent abdominal pain Procedures OFFICE/OUTPATIENT NEW MODERATE MDM 45-59 MINUTES NEW DDI PATIENT Adelaida Farias MD [address] [place] [address] Kaye Ortega MD [address] [place] [address] Referral ID Status Reason Start Date Expiration Date V isits Requested Visits Authorized [id number] Closed Financial Clearance Required - OON Payor Patient Cleared INN/SMCP Payor Auth Obtained 09/08/2021 06/18/2022 1 1 Reason Comments Patient Question visit from 09/15/21 Reason Comments Patient Question Reason Comments Appointment CONSULT FOR CHOLECYS TECTOMY Reason Comments Appointment Reason Onset Date Comments Transition Of Care 09/21/2021 [facility] Hospital Discharge 09/13/21 Reason Comments Work excuse letter Reason Onset Date Comments Transition Of Care 09/29/2021 [facility] Hospital Discharge 09/13/21 Reason Onset Date Comments Refill Request 10/04/2021 Reason Comments Hypertension Specialty Diagnoses / Procedures Referred By [facility] Referred To Contact Internal Medicine / INTERNAL MEDICINE Diagnoses 09/13 ER Discharge [facility] Broken ribs follow up Procedures 4C EST HOSP/ER FU Daija Morton MD [address] [place] [address] Anjel Braga APRN.CNP [address] [place] [address] Referral ID Status Reason Start Date Expiration Date Visits Re quested Visits Authorized [id number] Closed 10/07/2021 06/18/2022 1 1 Reason Comments Coumadin update / [place] Reason Comments Patient Update Orders Reason Comments [...] VOL VNTJ Emilie Jauregui PA-C [address] [employer] [address] [address] Respiratory [place] [address] [place] [address] Referral ID Status Reason Start Date Expiration Date V isits Requested Visits Authorized [id number] Closed Auto-Generate d Referral 11/05/2021 06/18/2022 1 1 Specialty Diagnoses / Procedures Referred By Contac t Referred To Contact [facility] Diagnoses COPD with chronic bronchitis (HCC) Procedures OXIMETRY WITH AMBULATION NONINVASIVE EAR/PULSE OXIMETRY MULTIPLE DETER Emilie Jauregui PA-C [address] [employer] [address] [address] Referral ID Status Reason Start Date Expiration Date V isits Requested Visits Authorized [id number] Closed Auto-Generate d Referral 11/05/2021 06/18/2022 1 1 Specialty Diagnoses / Procedures Referred By Contac t Referred To Contact Pulmonary and Critical Care Medicine / PULMONARY MEDICINE Diagnoses pre op clearance for gen surgery Procedures RI EST PULM GENERAL Daija Morton MD [address] [place] [address] Emilie Jauregui PA-C [address] [employer] [address] [address] Referral ID Status Reason Start Date Expiration Date Visits Re quested Visits Authorized [id number] Closed 10/21/2021 06/18/2022 1 1 Reason Comments Results Reason Comments Cardiac Clearance surgery to have gall bladder removed Reason Comments UTI Specialty Diagnoses / Procedures Referred By Contac t Referred To Contact Internal Medicine / INTERNAL MEDICINE Diagnoses Essential hypertension UTI Procedures OFFICE/OUTPATIENT ESTABLISHED MOD MDM 30-39 MIN 4C EST Self Older, Anjel, INFANTRY SENIOR SERGEANT.QUALITY ENGINEER [address] [place] [address] Referral ID Status Reason Start Date Expiration Date Visits Re quested Visits Authorized [id number] Closed 11/17/2021 06/18/2022 1 1 Reason Onset Date Comments Refill Request 11/18/2021 Reason Onset Date Comments Refill Request 11/19/2021 Reason Comments Medication Request Reason Comments Clinical Update Reason Comments Patient Update Medication Request Reason Comments Appointment 01/14 ED F/U-need ED location to retrieve records Reason Comments ER F/U [facility] Specialty Diagnoses / Procedures Referred By Contac t Referred To Contact Internal Medicine / INTERNAL MEDICINE Diagnoses Follow-up [facility] f/u Procedures OFFICE/OUTPATIENT ESTABLISHED MOD [facility] 30-39 MIN 4C EST HOSP/ER FU MD Roosevelt Wood Terri, INFANTRY SENIOR SERGEANT.ELECTRICIAN YARD [address] [place] [address] Referral ID Status Reason Start Date Expiration Date Visits Re quested Visits Authorized [id number] Closed 01/14/2022 06/18/2022 1 1 Reason Comments Established Patient follow up gallbladde r Reason Comments Recheck Follow up, Hosp foll ow up Specialty Diagnoses / Procedures Referred By Contac t Referred To Contact Internal Medicine / INTERNAL MEDICINE Diagnoses [facility] ER f/u. 01-25-22. Black stool. Procedures 4C EST HOSP/ER MD Omi Marks Joy, INFANTRY SENIOR SERGEANT.QUALITY ENGINEER [address] [place] [address] Referral ID Status Reason Start Date Expiration Date Visits Re quested Visits Authorized [id number] Closed 01/28/2022 04/28/2022 1 1 Reason Comments Follow Up Specialty Diagnoses / Procedures Referred By Contac t Referred To Contact Vascular Surgery / VASCULAR SURGERY Diagnoses PVD 1 year f/u with PVR and arterial Duplex [place] [address] [address] [place] [address] [place] [address] [place] [address] Referral ID Status Reason Start Date Expiration Date Visits Re quested Visits Authorized [id number] Closed 01/31/2022 06/18/2022 1 1 Reason Comments Results, Lab Reason Onset Date Comments Refill Request 02/22/2022 Reason Comments Erroneous encounter-disregard Reason Comments Fall Reason Comments [facility] orders needed today Reason Comments admit to [facility] Reason Comments Social Work Services Reason Comments Medication Question Reason Comments Syncope Reason Onset Date Comments Refill Request 08/25/2022 Patient Update 08/25/2022 Reason Comments detention follow-up Reason Onset Date Comments Refill Request [...] fix this, also fell twice while in [facility] Reason Comments Mental status change Reason Comments No Show Reason Onset Date Comments Refill Request 01/23/2024 Reason Onset Date Comments Refill Request 03/12/2024 Reason Comments UTI Foul odor, confusion Reason Comments Home Health Orders Reason Comments [place] [facility] update Reason Comments Home Care Management Patient Update Reason Comments detention discharge [facility] Reason Onset Date Comments Refill Request 12/13/2024 Reason Comments [facility] requesting records Reason Onset Date Comments Refill Request 12/16/2024 Care Teams (unrecognized sec tion and content) Screen Printing Machine Operator Relationship Specialty Start Date End Date Daija Morton MD [address] [place] [address] PCP - General Internal Medicine 03/21/17 Beatriz Correa CNP Referring 09/28/20 Daija Morton MD [address] [place] [address] Home Care Physician Internal Medicine 09/28/20 13, Pharmacist [phone] [place] [address] Pharmacist Pharmacy 06/17/21 Lizette Ulloa, ОЛЕГ [address] [place] [address] Primary Care Site Medical Director Internal Medicine 09/14/21 10/14/21 Tamika Almaguer [employer] Drag Sawyer 09/26/17 Screen Printing Machine Operator Relationship Specialty Start Date End Date Daija Morton MD [address] [place] [address] PCP - General Internal Medicine 03/21/17 Beatriz Correa, QUALITY ENGINEER Referring 09/28/20 Daija Morton MD [address] [place] [address] Home Care Physician Internal Medicine 09/28/20 13, Pharmacist [phone] [place] [address] Pharmacist Pharmacy 06/17/21 Lizette Ulloa, ОЛЕГ [address] [place] [address] Primary Care Site Medical Director Internal Medicine 09/14/21 10/14/21 Tamika HARRELL Drag Sawyer 09/26/17 Screen Printing Machine Operator Relationship Specialty Start Date End Date Daija Morton MD [address] [place] [address] PCP - General Internal Medicine 03/21/17 Beatriz Correa, QUALITY ENGINEER Referring 09/28/20 Daija Morton MD [address] [place] [address] Home Care Physician Internal Medicine 09/28/20 13, Pharmacist [phone] [place] [address] Pharmacist Pharmacy 06/17/21 Lizette Ulloa RN [address] [place] [address] Primary Care Site Medical Director Internal Medicine 09/14/21 10/14/21 Tamika HARRELL Drag Sawyer 09/26/17 Screen Printing Machine Operator Relationship Specialty Start Date End Date Daija Morton MD [address] [place] [address] PCP - General Internal Medicine 03/21/17 Beatriz Correa, QUALITY ENGINEER Referring 09/28/20 Daija Morton MD [address] [place] [address] Home Care Physician Internal Medicine 09/28/20 13, Pharmacist [phone] [place] [address] Pharmacist Pharmacy 06/17/21 Lizette Ulloa RN [address] [place] [address] Primary Care Site Medical Director Internal Medicine 09/14/21 10/14/21 Tamika HARRELL Drag Sawyer 09/26/17 Screen Printing Machine Operator Relationship Specialty Start Date End Date Daija Morton MD [address] [place] [address] PCP - General Internal Medicine 03/21/17 Beatriz Correa, QUALITY ENGINEER Referring 09/28/20 Daija Morton MD [address] [place] [address] Home Care Physician Internal Medicine 09/28/20 13, Pharmacist [phone] [place] [address] Pharmacist Pharmacy 06/17/21 Lizette Ulloa RN [address] [place] [address] Primary Care Site Medical Director Internal Medicine 09/14/21 10/14/21 Tamika HARRELL Drag Sawyer 09/26/17 Screen Printing Machine Operator Relationship Specialty Start Date End Date Daija Morton MD [address] [facility] [place] [address] PCP - General Internal Medicine 03/21/17 Beatriz Correa CNP Referring 09/28/20 Daija Morton MD [address] [facility] [place] [address] Home Care Physician Internal Medicine 09/28/20 13, Pharmacist [phone] [place] [address] Pharmacist Pharmacy 06/17/21 Lizette Ulloa, RN [address] [place] [address] Primary Care Site Medical Director Internal Medicine 09/14/21 10/14/21 Tamika HARRELL Drag Sawyer 09/26/17 Screen Printing Machine Operator Relationship Specialty Start Date End Date Daija Morton MD [address] [facility] [place] [address] PCP - General Internal Medicine 03/21/17 Beatriz Correa CNP Referring 09/28/20 Daija Morton MD [address] [facility] [place] [address] Home Care Physician Internal Medicine 09/28/20 13, Pharmacist [phone] [place] [address] Pharmacist Pharmacy 06/17/21 Lizette Ulloa, RN [address] [place] [address] Primary Care Site Medical Director Internal Medicine 09/14/21 10/14/21 Tamika HARRELL Drag Sawyer 09/26/17 Screen Printing Machine Operator Relationship Specialty Start Date End Date Daija Morton MD [address] [facility] [place] [address] PCP - General Internal Medicine 03/21/17 Beatriz Correa CNP Referring 09/28/20 Daija Morton MD [address] [place] [address] Home Care Physician Internal Medicine 09/28/20 13, Pharmacist [phone] [place] [address] Pharmacist Pharmacy 06/17/21 Lizette Ulloa RN [address] [facility] [address] Primary Care Site Medical Director Internal Medicine 09/14/21 10/14/21 Kaye Ortega MD [address] [place] [id number] General Surgery 09/21/21 Tamika Ally Almaguer [facility] Drag Sawyer 09/26/17 Screen Printing Machine Operator Relationship Specialty Start Date End Date Daija Morton MD [address] [place] [address] PCP - General Internal Medicine 03/21/17 Beatriz Correa CNP Referring 09/28/20 Daija Morton MD [address] [place] [address] Home Care Physician Internal Medicine 09/28/20 13, Pharmacist [phone] [place] [address] Pharmacist Pharmacy 06/17/21 Lizette Ulloa RN [address] [place] [address] Primary Care Site Medical Director Internal Medicine 09/14/21 10/14/21 Kaye Ortega MD [address] [facility] [place] [address] General Surgery 09/21/21 [facility]iny [facility] 09/26/17 Screen Printing Machine Operator Relationship Specialty Start Date End Date Daija Morton MD [address] [place], [place] [phone] PCP - General Internal Medicine 03/21/17 Beatriz Correa, LAMIN Referring 09/28/20 Daija Morton MD [address] [place] [address] Home Care Physician Internal Medicine 09/28/20 13, Pharmacist [address] [place] [address] Pharmacist Pharmacy 06/17/21 Lizette Ulloa, ОЛЕГ [address] [facility] [place] [address] Primary Care Site Medical Director Internal Medicine 09/14/21 10/14/21 Kaye Ortega MD [address] [facility] [place] [address] General Surgery 09/21/21 Tamika HARRELL Drag Sawyer 09/26/17 Screen Printing Machine Operator Relationship Specialty Start Date End Date Daija Morton MD [address] [place] [address] PCP - General Internal Medicine 03/21/17 Beatriz Correa, LAMIN Referring 09/28/20 Daija Morton MD [address] [place] [address] Home Care Physician Internal Medicine 09/28/20 13, Pharmacist [phone] [place] [address] Pharmacist Pharmacy 06/17/21 Lizette Ulloa, ОЛЕГ [address] [place] [address] Primary Care Site Medical Director Internal Medicine 09/14/21 10/14/21 Kaye Ortega MD [address] [place] [address] General Surgery 09/21/21 Tamika HARRELL Drag Sawyer 09/26/17 Screen Printing Machine Operator Relationship Specialty Start Date End Date Daija Morton MD [address] [place] [address] PCP - General Internal Medicine 03/21/17 Beatriz Correa, LAMIN Referring 09/28/20 Daija Morton MD [address] [place] [address] Home Care Physician Internal Medicine 09/28/20 13, Pharmacist [phone] [place] [address] Pharmacist Pharmacy 06/17/21 Lizette Ulloa RN [address] [place] [address] Primary Care Site Medical Director Internal Medicine 09/14/21 10/14/21 Kaye Ortega MD [address] [place] [phone] General Surgery 09/21/21 Tamikadestiny Almaguer PASSPORT Drag Sawyer 09/26/17 Screen Printing Machine Operator Relationship Specialty Start Date End Date Daija Morton MD [address] [place] [address] PCP - General Internal Medicine 03/21/17 Beatriz Correa, QUALITY ENGINEER Referring 09/28/20 Daija Morton MD [address] [place] [address] Home Care Physician Internal Medicine 09/28/20 13, Pharmacist [phone] [place] [address] Pharmacist Pharmacy 06/17/21 Lizette Ulloa RN [address] [facility] [address] Primary Care Site Medical Director Internal Medicine 09/14/21 10/14/21 Kaye Ortega MD [address] [place] [id number] General Surgery 09/21/21 Tamika HARRELL Drag Sawyer 09/26/17 Screen Printing Machine Operator Relationship Specialty Start Date End Date Daija Morton MD [address] [place], [place] [address] [phone] PCP - General Internal Medicine 03/21/17 Beatriz Correa CNP Referring 09/28/20 Daija Morton MD [address] [place], [place] [address] [phone] Home Care Physician Internal Medicine 09/28/20 Fco Franklin, ОЛЕГ [address] [place] [address] Meat Pumper 10/08/20 12/21/20 13, Pharmacist [phone] [place] [address] Pharmacist Pharmacy 06/17/21 Lizette Ulloa, ОЛЕГ [address] [place] [address] Primary Care Site Medical Director Internal Medicine 09/14/21 10/14/21 Kaye Ortega MD [address] [place] [phone] General Surgery 09/21/21 Tamika Ally Almaguer PASSANYI Drag Sawyer 09/26/17 Screen Printing Machine Operator Relationship Specialty Start Date End Date Daija Morton MD [address] [place] [address] PCP - General Internal Medicine 03/21/17 Beatriz Correa CNP Referring 09/28/20 Daija Morton MD [address] [place] [address] Home Care Physician Internal Medicine 09/28/20 13, Pharmacist [phone] [place] [address] Pharmacist Pharmacy 06/17/21 Lizette Ulloa, ОЛЕГ [address] [place] [address] Primary Care Site Medical Director Internal Medicine 09/14/21 10/14/21 Kaye Ortega MD [address] [place] [address] General Surgery 09/21/21 [facility] Drag Sawyer 09/26/17 Screen Printing Machine Operator Relationship Specialty Start Date End Date Daija Morton MD [address] [place] [address] PCP - General Internal Medicine 03/21/17 Beatriz Correa, LAMIN Referring 09/28/20 10/12/21 Daija Morton MD [address] [place] [address] Home Care Physician Internal Medicine 09/28/20 10/12/21 13, Pharmacist [address] [place] [address] Pharmacist Pharmacy 06/17/21 Lizette Ulloa, ОЛЕГ [address] [facility] [address] Primary Care Site Medical Director Internal Medicine 09/14/21 10/14/21 Kaye Ortega MD [address] [place] [phone] General Surgery 09/21/21 Ye Coello MD [address] [place], [place] [id number] General Surgery 10/13/21 Emilie Jauregui, PA-C [address] [place] [address] Specialty Pearl Peller Pulmonary and Critical Care Medicine 10/13/21 Ryan May MD [address] [place] [address] Specialty Pearl Peller Vascular Surgery 10/13/21 Geronimo Medina, [address] [address] Iv Therapy Nurse Cardiology 10/13/21 Tamika HARRELL Drag Sawyer 09/26/17 Screen Printing Machine Operator Relationship Specialty Start Date End Date Daija Morton MD [address] [place] [address] PCP - General Internal Medicine 03/21/17 13, Pharmacist [address] [place] [address] Pharmacist Pharmacy 06/17/21 Lizette Ulloa, ОЛЕГ [address] [place], [place] [id number] Primary Care Site Medical Director Internal Medicine 09/14/21 10/14/21 Kaye Ortega MD [address] [place] [address] General Surgery 09/21/21 Ye Coello MD [address] [place], [place] [id number] General Surgery 10/13/21 Emilie Jauregui, PA-C [address] [place], [place] [id number] Specialty Pearl Peller Pulmonary and Critical Care Medicine 10/13/21 Ryan May MD [address] [place] [address] Specialty Pearl Peller Vascular Surgery 10/13/21 Geronimo Medina DO [address] [address] Iv Therapy Nurse Cardiology 10/13/21 Tamika HARRELL Drag Sawyer 09/26/17 Screen Printing Machine Operator Relationship Specialty Start Date End Date Daija Morton MD [address] [place], [place] 276401 PCP - General Internal Medicine 03/21/17 Beatriz Correa, QUALITY ENGINEER Referring 09/28/20 10/12/21 Daija Morton MD [address] [place], [place] 098671 Home Care Physician Internal Medicine 09/28/20 10/12/21 13, Pharmacist [address] [place] [address] Pharmacist Pharmacy 06/17/21 Lizette Ulloa, ОЛЕГ [address] [place], [place] [id number] Primary Care Site Medical Director Internal Medicine 09/14/21 10/14/21 Kaye Ortega MD [address] [place] [phone] General Surgery 09/21/21 Ye Coello MD [address] [place], [place] [id number] General Surgery 10/13/21 Emilie Jauregui PA-C [address] [place], [place] [id number] Specialty Pearl Peller Pulmonary and Critical Care Medicine 10/13/21 Ryan May MD [address] [place] [address] Specialty Pearl Peller Vascular Surgery 10/13/21 Geronimo Medina DO [address] [address] Iv Therapy Nurse Cardiology 10/13/21 Tamika Almaguer [employer] Drag Sawyer 09/26/17 Screen Printing Machine Operator Relationship Specialty Start Date End Date Daija Morton MD [address] [place] [address] PCP - General Internal Medicine 03/21/17 13, Pharmacist [address] [place] [address] Pharmacist Pharmacy 06/17/21 Lizette Ulloa, RN [address] [place] [address] Primary Care Site Medical Director Internal Medicine 09/14/21 10/14/21 Kaye Ortega MD [address] [place] [phone] General Surgery 09/21/21 Ye Coello MD [address] [place], [place] [id number] General Surgery 10/13/21 Emilie Jauregui PA-C [address] [place] [address] Specialty Pearl Peller Pulmonary and Critical Care Medicine 10/13/21 Ryan May MD [address] [place] [address] Specialty Pearl Peller Vascular Surgery 10/13/21 Geronimo Medina, DO [address] [id number] Iv Therapy Nurse Cardiology 10/13/21 [facility] 09/26/17 Screen Printing Machine Operator Relationship Specialty Start Date End Date Daija Morton MD [address] [place] [address] PCP - General Internal Medicine 03/21/17 13, Pharmacist [address]279 [place] [address] Pharmacist Pharmacy 06/17/21 Kaye Ortega MD [address] [place] [phone] General Surgery 09/21/21 Ye Coello MD [address] [place], [place] [id number] General Surgery 10/13/21 Emilie Jauregui PA-C [address] [place], [place] 226111 Specialty Pearl Peller Pulmonary and Critical Care Medicine 10/13/21 Ryan May MD [address] [place], [place] 7905095 Specialty Pearl Peller Vascular Surgery 10/13/21 Geronimo Medina DO [address] [address] Iv Therapy Nurse Cardiology 10/13/21 Tamika Almaguer [facility] Drag Sawyer 09/26/17 Screen Printing Machine Operator Relationship Specialty Start Date End Date Daija Morton MD [address] [place] [address] PCP - General Internal Medicine 03/21/17 13, Pharmacist [address]82 [place] [address] Pharmacist Pharmacy 06/17/21 Kaye Ortega MD [address] [place] [address] General Surgery 09/21/21 Ye Coello MD [address] [place], [place] [id number] General Surgery 10/13/21 Emilie Jauregui PA-C [address] [place] [address] Specialty Pearl Peller Pulmonary and Critical Care Medicine 10/13/21 Ryan May MD [address] [place] [address] Specialty Pearl Peller Vascular Surgery 10/13/21 Geronimo Medina DO [address] [address] Iv Therapy Nurse Cardiology 10/13/21 Tamika Almaguer PASSANYI Drag Sawyer 09/26/17 Screen Printing Machine Operator Relationship Specialty Start Date End Date Daija Morton MD [address] [place] [address] PCP - General Internal Medicine 03/21/17 13, Pharmacist [address] [place] [address] Pharmacist Pharmacy 06/17/21 Kaye Ortega MD [address] [place] [address] General Surgery 09/21/21 Ye Coello MD [address] [place] [address] General Surgery 10/13/21 Emilie Jauregui PA-C [address] [place] [address] Specialty Pearl Peller Pulmonary and Critical Care Medicine 10/13/21 Ryan May MD [address] [place] [address] Specialty Pearl Peller Vascular Surgery 10/13/21 Geronimo Medina DO [address] [address] Iv Therapy Nurse Cardiology 10/13/21 Tamika HARRELL Drag Sawyer 09/26/17 Screen Printing Machine Operator Relationship Specialty Start Date End Date Dajia Morton MD [address] [place] [address] PCP - General Internal Medicine 03/21/17 13, Pharmacist [address] [place] [address] Pharmacist Pharmacy 06/17/21 Kaye Ortega MD [address] [place] [phone] General Surgery 09/21/21 Ye Coello MD [address] [place], [place] [id number] General Surgery 10/13/21 Emilie Jauregui PAAshtyn [address] [place], [place] 597791 Specialty Pearl Peller Pulmonary and Critical Care Medicine 10/13/21 Ryan May MD [address] [place] [address] Specialty Pearl Peller Vascular Surgery 10/13/21 Geronimo Medina DO [address] [id number] Iv Therapy Nurse Cardiology 10/13/21 Tamika Almaguer [facility] Drag Sawyer 09/26/17 Screen Printing Machine Operator Relationship Specialty Start Date End Date Daija Morton MD [address] [place], [place] [phone] PCP - General Internal Medicine 03/21/17 13, Pharmacist [address] [place] [address] Pharmacist Pharmacy 06/17/21 Kaye Ortega MD [address] [place] [phone] General Surgery 09/21/21 Ye Coello MD [address] [place], [place] [id number] General Surgery 10/13/21 Emilie Jauregui PA-C [address] [place] [address] Specialty Pearl Peller Pulmonary and Critical Care Medicine 10/13/21 Ryan May MD [address] [place], [place] [id number] Specialty Pearl Peller Vascular Surgery 10/13/21 Geronimo Medina, DO [address] [address] Iv Therapy Nurse Cardiology 10/13/21 Tamika Canales [facility] Drag Sawyer 09/26/17 Screen Printing Machine Operator Relationship Specialty Start Date End Date Daija Morton MD [address] [place] [address] PCP - General Internal Medicine 03/21/17 13, Pharmacist [address]64 [place] [address] Pharmacist Pharmacy 06/17/21 Kaye Ortega MD [address] [place] [address] General Surgery 09/21/21 Ye Coello MD [address] [place] [address] General Surgery 10/13/21 Emilie Jauregui PA-C [address] [place] [address] Specialty Pearl Peller Pulmonary and Critical Care Medicine 10/13/21 Ryan May MD [address] [place] [address] Specialty Pearl Peller Vascular Surgery 10/13/21 Geronimo Medina DO [address] [address] Iv Therapy Nurse Cardiology 10/13/21 Tamika Almaguer [employer] Drag Sawyer 09/26/17 Screen Printing Machine Operator Relationship Specialty Start Date End Date Daija Morton MD [address] [place], [place] 637851 PCP - General Internal Medicine 03/21/17 13, Pharmacist [address] [place] [address] Pharmacist Pharmacy 06/17/21 Kaye Ortega MD [address] [place] [phone] General Surgery 09/21/21 Ye Coello MD [address] [place], [place] [id number] General Surgery 10/13/21 Emilie Jauregui PA-C [address] [place], [place] 564471 Specialty Pearl Peller Pulmonary and Critical Care Medicine 10/13/21 Ryan May MD [address] [place], [place] 5096095 Specialty Pearl Peller Vascular Surgery 10/13/21 Geronimo Medina, [address] [address] Iv Therapy Nurse Cardiology 10/13/21 Tamika Almaguer [employer] Drag Sawyer 09/26/17 Screen Printing Machine Operator Relationship Specialty Start Date End Date Daija Morton MD [address] [place], [place] [phone] PCP - General Internal Medicine 03/21/17 13, Pharmacist [address] [place] [address] Pharmacist Pharmacy 06/17/21 Kaye Ortega MD [address] [place] [address] General Surgery 09/21/21 Ye Coello MD [address] [place], [place] 329235 General Surgery 10/13/21 Emilie Jauregui PA-C [address] [place], [place] 178611 Specialty Pearl Peller Pulmonary and Critical Care Medicine 10/13/21 Ryan May MD [address] [place], [place] [phone] Specialty Pearl Peller Vascular Surgery 10/13/21 Geronimo Medina DO [address] [address] Iv Therapy Nurse Cardiology 10/13/21 Tamika Canales Tripp [facility] Drag Sawyer 09/26/17 Screen Printing Machine Operator Relationship Specialty Start Date End Date Daija Morton MD [address] [place] [address] PCP - General Internal Medicine 03/21/17 13, Pharmacist [address] [place] [address] Pharmacist Pharmacy 06/17/21 Kaye Ortega MD [address] [place] [phone] General Surgery 09/21/21 Ye Coello MD [address] [place], [place] [id number] General Surgery 10/13/21 Emilie Jauregui PA-C [address] [place] [address] Specialty Pearl Peller Pulmonary and Critical Care Medicine 10/13/21 Ryan May MD [address] [place] [address] Specialty Pearl Peller Vascular Surgery 10/13/21 Geronimo Medina DO [address] [address] Iv Therapy Nurse Cardiology 10/13/21 Tamika HARRELL Drag Sawyer 09/26/17 Screen Printing Machine Operator Relationship Specialty Start Date End Date Daija Morton MD [address] [place] [address] PCP - General Internal Medicine 03/21/17 13, Pharmacist [address] [place] [address] Pharmacist Pharmacy 06/17/21 Kaye Ortega MD [address] [place] [address] General Surgery 09/21/21 Ye Coello MD [address] [place] [address] General Surgery 10/13/21 Emilie Jauregui PA-C [address] [place] [address] Specialty Pearl Peller Pulmonary and Critical Care Medicine 10/13/21 Ryan May MD [address] [place] [address] Specialty Pearl Peller Vascular Surgery 10/13/21 Geronimo Medina DO [address] [address] Iv Therapy Nurse Cardiology 10/13/21 Tamika HARRELL Drag Sawyer 09/26/17 Screen Printing Machine Operator Relationship Specialty Start Date End Date Daija Morton MD [address] [place] [address] PCP - General Internal Medicine 03/21/17 13, Pharmacist [address] [place] [address] Pharmacist Pharmacy 06/17/21 Kaye Ortega MD [address] [place] [phone] General Surgery 09/21/21 Ye Coello MD [address] [place], [place] [id number] General Surgery 10/13/21 Emilie Jauregui PA-C [address] [place] [address] Specialty Pearl Peller Pulmonary and Critical Care Medicine 10/13/21 Ryan May MD [address] [place] [address] Specialty Pearl Peller Vascular Surgery 10/13/21 Geronimo Medina DO [address] [address] Iv Therapy Nurse Cardiology 10/13/21 [facility]uer [facility] Drag Sawyer 09/26/17 Screen Printing Machine Operator Relationship Specialty Start Date End Date Daija Morton MD [address] [place] [address] PCP - General Internal Medicine 03/21/17 13, Pharmacist [address] [place] [address] Pharmacist Pharmacy 06/17/21 Kaye Ortega MD [address] [place] [phone] General Surgery 09/21/21 Ye Coello MD [address] [place], [place] [id number] General Surgery 10/13/21 Emilie Jauregui, PA-C [address] [place] [address] Specialty Pearl Peller Pulmonary and Critical Care Medicine 10/13/21 Ryan May MD [address] [place], [place] 9633595 Specialty Pearl Peller Vascular Surgery 10/13/21 Geronimo Medina DO [address] [address] Iv Therapy Nurse Cardiology 10/13/21 Tamika Almaguer [employer] Drag Sawyer 09/26/17 Screen Printing Machine Operator Relationship Specialty Start Date End Date Daija Morton MD [address] [place] [address] PCP - General Internal Medicine 03/21/17 13, Pharmacist [address] [place] [address] Pharmacist Pharmacy 06/17/21 Kaye Ortega MD [address] [place] [address] General Surgery 09/21/21 Ye Coello MD [address] [place] [address] General Surgery 10/13/21 Emilie Jauregui PA-C [address] [place] [address] Specialty Pearl Peller Pulmonary and Critical Care Medicine 10/13/21 Ryan May MD [address] [place] [address] Specialty Pearl Peller Vascular Surgery 10/13/21 Geronimo Medina DO [address] [address] Iv Therapy Nurse Cardiology 10/13/21 Tamika Almaguer [employer] Drag Sawyer 09/26/17 Screen Printing Machine Operator Relationship Specialty Start Date End Date Daija Morton MD [address] [place] [address] PCP - General Internal Medicine 03/21/17 13, Pharmacist [address]25 [place] [address] Pharmacist Pharmacy 06/17/21 Kaye Ortega MD [address] [place] [address] General Surgery 09/21/21 Ye Coello MD [address] [place], [place] [id number] General Surgery 10/13/21 Emilie Jauregui PA-C [address] [place] [address] Specialty Pearl Peller Pulmonary and Critical Care Medicine 10/13/21 Ryan May MD [address] [place] [address] Specialty Pearl Peller Vascular Surgery 10/13/21 Geronimo Medina DO [address] [address] Iv Therapy Nurse Cardiology 10/13/21 Tamika Almaguer [employer] Drag Sawyer 09/26/17 Screen Printing Machine Operator Relationship Specialty Start Date End Date Dajia Morton MD [address] [place] [address] PCP - General Internal Medicine 03/21/17 13, Pharmacist [address]85 [place] [address] Pharmacist Pharmacy 06/17/21 Kaye Ortega MD [address] [place] [address] General Surgery 09/21/21 Ye Coello MD [address] [place], [place] [id number] General Surgery 10/13/21 Emilie Jauregui PA-C [address] [place], [place] 071891 Specialty Pearl Peller Pulmonary and Critical Care Medicine 10/13/21 Ryan May MD [address] [place], [place] 4838295 Specialty Pearl Peller Vascular Surgery 10/13/21 Geronimo Medina, [address] [address] Iv Therapy Nurse Cardiology 10/13/21 Tamika Canales [facility] Drag Sawyer 09/26/17 Screen Printing Machine Operator Relationship Specialty Start Date End Date Daija Morton MD [address] [place] [address] PCP - General Internal Medicine 03/21/17 13, Pharmacist [address]49 [place] [address] Pharmacist Pharmacy 06/17/21 Kaye Ortega MD [address] [place] [address] General Surgery 09/21/21 Ye Coello MD [address] [place], [place] [id number] General Surgery 10/13/21 Emilie Jauregui PA-C [address] [place] [address] Specialty Pearl Peller Pulmonary and Critical Care Medicine 10/13/21 Ryan May MD [address] [place], [place] [id number] Specialty Pearl Peller Vascular Surgery 10/13/21 Geronimo Medina DO [address] [address] Iv Therapy Nurse Cardiology 10/13/21 Tamika HARRELL Drag Sawyer 09/26/17 Screen Printing Machine Operator Relationship Specialty Start Date End Date Daija Morton MD [address] [place] [address] PCP - General Internal Medicine 03/21/17 13, Pharmacist [address]121 [place] [address] Pharmacist Pharmacy 06/17/21 Kaye Ortega MD [address] [place] [address] General Surgery 09/21/21 Ye Coello MD [address] [place], [place] 696145 General Surgery 10/13/21 Emilie Jauregui PA-C [address] [place], [place] 98[address] Specialty Pearl Peller Pulmonary and Critical Care Medicine 10/13/21 Ryan May MD [address] [place] [address] Specialty Pearl Peller Vascular Surgery 10/13/21 Geronimo Medina DO [address] [address] Iv Therapy Nurse Cardiology 10/13/21 Tamika HARRELL Drag Sawyer 09/26/17 Screen Printing Machine Operator Relationship Specialty Start Date End Date Daija Morton MD [address] [place] [address] PCP - General Internal Medicine 03/21/17 13, Pharmacist [address]45 [place] [address] Pharmacist Pharmacy 06/17/21 Kaye Ortega MD [address] [place] [address] General Surgery 09/21/21 Ye Coello MD [address] [place] [id number] General Surgery 10/13/21 Emilie Jauregui PA-C [address] [place] [address] Specialty Pearl Peller Pulmonary and Critical Care Medicine 10/13/21 Ryan May MD [address] [place] [address] Specialty Pearl Peller Vascular Surgery 10/13/21 Geronimo Medina DO [address] [address] Iv Therapy Nurse Cardiology 10/13/21 Tamika Almaguer [facility] Drag Sawyer 09/26/17 Screen Printing Machine Operator Relationship Specialty Start Date End Date Daija Morton MD [address] [place] [address] PCP - General Internal Medicine 03/21/17 13, Pharmacist [address] [place] [address] Pharmacist Pharmacy 06/17/21 Kaye Ortega MD [address] [place] [address] General Surgery 09/21/21 Ye Coello MD [address] [place], [place] [id number] General Surgery 10/13/21 Emilie Jauregui PA-C [address] [place] [address] Specialty Pearl Peller Pulmonary and Critical Care Medicine 10/13/21 Ryan May MD [address] [facility] [address] Specialty Pearl Peller Vascular Surgery 10/13/21 Geronimo Medina, DO [address] [address] Iv Therapy Nurse Cardiology 10/13/21 Tamika HARRELL Drag Sawyer 09/26/17 Screen Printing Machine Operator Relationship Specialty Start Date End Date Daija Morton MD [address] [place] [address] PCP - General Internal Medicine 03/21/17 13, Pharmacist [address] [place] [address] Pharmacist Pharmacy 06/17/21 Kaye Ortega MD [address] [place] [address] General Surgery 09/21/21 Ye Coello MD [address] [place] [address] General Surgery 10/13/21 Emilie Jauregui, PA-C [address] [place] [address] Specialty Pearl Peller Pulmonary and Critical Care Medicine 10/13/21 Ryan May MD [address] [facility] [address] Specialty Pearl Peller Vascular Surgery 10/13/21 Geronimo Medina, DO [address] [address] Iv Therapy Nurse Cardiology 10/13/21 Tamika HARRELL Drag Sawyer 09/26/17 Screen Printing Machine Operator Relationship Specialty Start Date End Date Daija Morton MD [address] [place] [address] PCP - General Internal Medicine 03/21/17 13, Pharmacist [address] [place] [address] Pharmacist Pharmacy 06/17/21 Kaye Ortega MD [address] [place] [address] General Surgery 09/21/21 Ye Coello MD [address] [place], [place] [id number] General Surgery 10/13/21 Emilie Jauregui PA-C [address] [place] [address] Specialty Pearl Peller Pulmonary and Critical Care Medicine 10/13/21 Ryan May MD [address] [place] [address] Specialty Pearl Peller Vascular Surgery 10/13/21 Geronimo Medina, DO [address] [address] Iv Therapy Nurse Cardiology 10/13/21 Tamika HARRELL Drag Sawyer 09/26/17 Screen Printing Machine Operator Relationship Specialty Start Date End Date Daija Morton MD [address] [place] [address] PCP - General Internal Medicine 03/21/17 13, Pharmacist [address] [place] [address] Pharmacist Pharmacy 06/17/21 Kaye Ortega MD [address] [place] [address] General Surgery 09/21/21 Ye Coello MD [address] [place] [address] General Surgery 10/13/21 Emilie Jauregui PA-C [address] [place] [address] Specialty Pearl Peller Pulmonary and Critical Care Medicine 10/13/21 Ryan May MD [address] [place] [address] Specialty Pearl Peller Vascular Surgery 10/13/21 Geronimo Medina DO [address] [id number] Iv Therapy Nurse Cardiology 10/13/21 [facility]uer [facility] Drag Sawyer 09/26/17 Screen Printing Machine Operator Relationship Specialty Start Date End Date Daija Morton MD [address] [place] [address] PCP - General Internal Medicine 03/21/17 13, Pharmacist [address] [place] [address] Pharmacist Pharmacy 06/17/21 Kaye Ortega MD [address] [place] [address] General Surgery 09/21/21 Ye Coello MD [address] [place] [address] General Surgery 10/13/21 Emilie Jauregui PA-C [address] [place] [address] Specialty Pearl Peller Pulmonary and Critical Care Medicine 10/13/21 Ryan May MD [address] [place], [place] 9706295 Specialty Pearl Peller Vascular Surgery 10/13/21 Geronimo Medina DO [address] [address] Iv Therapy Nurse Cardiology 10/13/21 Tamika HARRELL Drag Sawyer 09/26/17 Screen Printing Machine Operator Relationship Specialty Start Date End Date Daija Morton MD [address] [place] [address] PCP - General Internal Medicine 03/21/17 13, Pharmacist [address] [place] [address] Pharmacist Pharmacy 06/17/21 Kaye Ortega MD [address] [place] [address] General Surgery 09/21/21 Ye Coello MD [address] [place], [place] 377055 General Surgery 10/13/21 Emilie Jauregui PA-C [address] [place] [address] Specialty Pearl Peller Pulmonary and Critical Care Medicine 10/13/21 Ryan May MD [address] [place] [address] Specialty Pearl Peller Vascular Surgery 10/13/21 Geronimo Medina DO [address] [address] Iv Therapy Nurse Cardiology 10/13/21 Tamika HARRELL Drag Sawyer 09/26/17 Screen Printing Machine Operator Relationship Specialty Start Date End Date Daija Morton MD [address] [place] [address] PCP - General Internal Medicine 03/21/17 13, Pharmacist [address]30 [place] [address] Pharmacist Pharmacy 06/17/21 Kaye Ortega MD [address] [place] [address] General Surgery 09/21/21 Ye Coello MD [address] [place], [place] [id number] General Surgery 10/13/21 Emilie Jauregui PA-C [address] [place], [place] 1519[address] [phone] Specialty Pearl Peller Pulmonary and Critical Care Medicine 10/13/21 Ryan May MD [address] [facility] [place], [place] [address]37[address] Specialty Pearl Peller Vascular Surgery 10/13/21 Geronimo Medina DO [address] [id number] Iv Therapy Nurse Cardiology 10/13/21 Tamika Almaguer [facility] Drag Sawyer 09/26/17 Screen Printing Machine Operator Relationship Specialty Start Date End Date Daija Morton MD [address] [place] [address] PCP - General Internal Medicine 03/21/17 13, Pharmacist [address]373 [place] [address] Pharmacist Pharmacy 06/17/21 Kaye Ortega MD [address] [place] [address] General Surgery 09/21/21 Ye Coello MD [address] [place], [place] [id number] General Surgery 10/13/21 Emilie Jauregui PA-C [address] [place] [address] Specialty Pearl Peller Pulmonary and Critical Care Medicine 10/13/21 Ryan May MD [address] [place] [address] Specialty Pearl Peller Vascular Surgery 10/13/21 Geronimo Medina DO [address] [address] Iv Therapy Nurse Cardiology 10/13/21 Tamika HARRELL Drag Sawyer 09/26/17 Screen Printing Machine Operator Relationship Specialty Start Date End Date Daija Morton MD [address] [place], [place] 773591 PCP - General Internal Medicine 03/21/17 13, Pharmacist [address] [place] [address] Pharmacist Pharmacy 06/17/21 Kaye Ortega MD [address] [place] [address] General Surgery 09/21/21 Ye Coello MD [address] [place], [place] 608535 General Surgery 10/13/21 Emilie Jauregui PA-C [address] [place] [address] Specialty Pearl Peller Pulmonary and Critical Care Medicine 10/13/21 Ryan May MD [address] [place] [address] Specialty Pearl Peller Vascular Surgery 10/13/21 Geronimo Medina DO [address] [address] Iv Therapy Nurse Cardiology 10/13/21 Tamika HARRELL Drag Sawyer 09/26/17 Screen Printing Machine Operator Relationship Specialty Start Date End Date Daija Morton MD [address] [place], [place] 301381 PCP - General Internal Medicine 03/21/17 13, Pharmacist [address] [place] [address] Pharmacist Pharmacy 06/17/21 04/12/22 Kaye Ortega MD [address] [place] [address] General Surgery 09/21/21 Ye Coello MD [address] [place], [place] 477055 General Surgery 10/13/21 Emilie Jauregui PA-C [address] [place], [place] [phone] Specialty Pearl Peller Pulmonary and Critical Care Medicine 10/13/21 Ryan May MD [address] [place], [place] 6204295 Specialty Pearl Peller Vascular Surgery 10/13/21 Geronimo Medina, DO [address] [id number] Iv Therapy Nurse Cardiology 10/13/21 Tamika Almaguer [facility] Drag Sawyer 09/26/17 Team Status: Active Member Role Status Dates Dr. Daija Morton MD Family Provider Active Dr. Daija Mortno MD Primary Care Provider Active Team Status: Inactive Member Role Status Dates Dr. Daija Morton MD Primary Care Provider Active Андрей Cooley Attending Provider, Referring Provider Ac tive Team Status: Inactive Member Role Status Dates Dr. Daija Morton MD Primary Care Provider Active Андрей Cooley Attending Provider Active Screen Printing Machine Operator Relationship Specialty Start Date End Date Daija Morton MD [address] [place], [place] [id number] PCP - General Internal Medicine 03/21/17 Kaye Ortega MD [address] [place] [address] General Surgery 09/21/21 Ye Coello MD [address] [place] [address] General Surgery 10/13/21 Emilie Jauregui PA-C [address] [place] [address] Specialty Pearl Peller Pulmonary and Critical Care Medicine 10/13/21 Ryan May MD [address] [place], [place] 3227195 Specialty Pearl Peller Vascular Surgery 10/13/21 Geronimo Medina, [address] [address] Iv Therapy Nurse Cardiology 10/13/21 Tamika Almaguer [facility] Drag Sawyer 09/26/17 Screen Printing Machine Operator Relationship Specialty Start Date End Date Daija Morton MD [address] [place] [address] PCP - General Internal Medicine 03/21/17 Kaye Otrega MD [address] [place] [address] General Surgery 09/21/21 Ye Coello MD [address] [place] [address] General Surgery 10/13/21 Emilie Jauregui PA-C [address] [place] [address] Specialty Pearl Peller Pulmonary and Critical Care Medicine 10/13/21 Ryan May MD [address] [place], [place] [phone] Specialty Pearl Peller Vascular Surgery 10/13/21 Geronimo Medina DO [address] [address] Iv Therapy Nurse Cardiology 10/13/21 Tamika HARRELL Drag Sawyer 09/26/17 Screen Printing Machine Operator Relationship Specialty Start Date End Date Daija Morton MD [address] [place] [address] PCP - General Internal Medicine 03/21/17 Kaye Ortega MD [address] [place] [address] General Surgery 09/21/21 Ye Coello MD [address] [place], [place] 749835 General Surgery 10/13/21 Emilie Jauregui PA-C [address] [place] [address] Specialty Pearl Peller Pulmonary and Critical Care Medicine 10/13/21 Ryan May MD [address] [place], [place] 3354495 Specialty Pearl Peller Vascular Surgery 10/13/21 Geronimo Medina DO [address] [address] Iv Therapy Nurse Cardiology 10/13/21 Tamika HARRELL Drag Sawyer 09/26/17 Screen Printing Machine Operator Relationship Specialty Start Date End Date Daija Morton MD [address] [place] [address] PCP - General Internal Medicine 03/21/17 Kaye Ortega MD [address] [place] [address] General Surgery 09/21/21 Ye Coello MD [address] [place], [place] 525405 General Surgery 10/13/21 Emilie Jauregui PA-C [address] [place] [address] Specialty Pearl Peller Pulmonary and Critical Care Medicine 10/13/21 Ryan May MD [address] [place], [place] 3836295 Specialty Pearl Peller Vascular Surgery 10/13/21 Geronimo Medina DO [address] [id number] Iv Therapy Nurse Cardiology 10/13/21 Tamika Almaguer [facility] Drag Sawyer 09/26/17 Screen Printing Machine Operator Relationship Specialty Start Date End Date Daija Morton MD [address] [place] [address] PCP - General Internal Medicine 03/21/17 Kaye Ortega MD [address] [place] [address] General Surgery 09/21/21 Ye Coello MD [address] [place] [address] General Surgery 10/13/21 Emilie Jauregui PA-C [address] [place] [address] Specialty Pearl Peller Pulmonary and Critical Care Medicine 10/13/21 Ryan May MD [address] [place], [place] [phone] Specialty Pearl Peller Vascular Surgery 10/13/21 Geronimo Medina DO [address] [phone] Iv Therapy Nurse Cardiology 10/13/21 Tamika Almaguer [employer] Drag Sawyer 09/26/17 Screen Printing Machine Operator Relationship Specialty Start Date End Date Daija Morton MD [address] [facility] [place] [address] PCP - General Internal Medicine 03/21/17 Kaye Ortega MD [address] [facility] [place] [address] General Surgery 09/21/21 Ye Coello MD [address] [place], [place] 65081685 General Surgery 10/13/21 Emilie Jauregui PA-C [address] [place] [address] Specialty Pearl Peller Pulmonary and Critical Care Medicine 10/13/21 Ryan May MD [address] [place] [address] Specialty Pearl Peller Vascular Surgery 10/13/21 Geronimo Medina, DO [address] [address] Iv Therapy Nurse Cardiology 10/13/21 Tamika Almaguer [facility] Drag Sawyer 09/26/17 Screen Printing Machine Operator Relationship Specialty Start Date End Date Daija Morton MD [address] [place] [address] PCP - General Internal Medicine 03/21/17 Kaye Ortega MD [address] [facility] [place] [address] General Surgery 09/21/21 Ye Coello MD [address] [place], [place] 77676679 [phone] General Surgery 10/13/21 Emilie Jauregui PA-C [address] [place] [address] Specialty Pearl Peller Pulmonary and Critical Care Medicine 10/13/21 Ryan May MD [address] [place], [place] 7539795 Specialty Pearl Peller Vascular Surgery 10/13/21 Geronimo Medina, DO [address] [address] Iv Therapy Nurse Cardiology 10/13/21 Tamika HARRELL Drag Sawyer 09/26/17 Screen Printing Machine Operator Relationship Specialty Start Date End Date Daija Morton MD [address] [place] [address] PCP - General Internal Medicine 03/21/17 Kaye Ortega MD [address] [place] [address] General Surgery 09/21/21 Ye Coello MD [address] [place] [address] General Surgery 10/13/21 Emilie Jauregui PA-C [address] [place] [address] Specialty Pearl Peller Pulmonary and Critical Care Medicine 10/13/21 Ryan May MD [address] [place] [address] Specialty Pearl Peller Vascular Surgery 10/13/21 Geronimo Medina, DO [address] [address] Iv Therapy Nurse Cardiology 10/13/21 Tamika HARRELL Drag Sawyer 09/26/17 Team Status: Inactive Member Role Status Dates Dr. Daija Morton MD Primary Care Provider Active Андрей RAIN Attending Provider Active Team Status: Inactive Member Role Status Dates Dr. Daija Morton MD Primary Care Provider Active Dr. Jaden Jauregui MD Emergency Provider Active Screen Printing Machine Operator Relationship Specialty Start Date End Date Daija Morton MD [address] [place] [address] PCP - General Internal Medicine 03/21/17 Kaye Ortega MD [address] [place] [address] General Surgery 09/21/21 Ye Coello MD [address] [place], [place] 624925 General Surgery 10/13/21 Emilie Jauregui PA-C [address] [place] [address] Specialty Pearl Peller Pulmonary and Critical Care Medicine 10/13/21 Ryan May MD [address] [place] [address] Specialty Pearl Peller Vascular Surgery 10/13/21 Geronimo Medina DO [address] [address] Iv Therapy Nurse Cardiology 10/13/21 Tamika Almaguer [employer] Drag Sawyer 09/26/17 Screen Printing Machine Operator Relationship Specialty Start Date End Date Daija Morton MD [address] [place] [address] PCP - General Internal Medicine 03/21/17 Kaye Ortega MD [address] [place] [address] General Surgery 09/21/21 Ye Coello MD [address] [place] [address] General Surgery 10/13/21 Emilie Jauregui PA-C [address] [place] [address] Specialty Pearl Peller Pulmonary and Critical Care Medicine 10/13/21 Ryan May MD [address] [place] [address] Specialty Pearl Peller Vascular Surgery 10/13/21 Geronimo Medina DO [address] [address] Iv Therapy Nurse Cardiology 10/13/21 [facility] Drag Sawyer 09/26/17 Team Status: Inactive Member Role Status Dates Dr. Daija Morton MD Primary Care Provider Active Dr. Jaden Jauregui MD Attending Provider, Emergency Provider Active Team Status: Inactive Member Role Status Dates Dr. Daija Morton MD Primary Care Provider Active Dr. Huber Alvarado MD Emergency Provider Active Screen Printing Machine Operator Relationship Specialty Start Date End Date Daija Morton MD [address] [place] [address] PCP - General Internal Medicine 03/21/17 Kaye Ortega MD [address] [place] [address] General Surgery 09/21/21 Ye Coello MD [address] [place], [place] 434525 General Surgery 10/13/21 Emilie Jauregui PA-C [address] [facility] [place], [place] 00[address]21 Specialty Pearl Peller Pulmonary and Critical Care Medicine 10/13/21 Ryan May MD [address] [place] [address] Specialty Pearl Peller Vascular Surgery 10/13/21 Geronimo Medina DO [address] [address] Iv Therapy Nurse Cardiology 10/13/21 Tamika Almaguer [facility] Drag Sawyer 09/26/17 Team Status: Inactive Member Role Status Dates Dr. Daija Morton MD Primary Care Provider Active Dr. Huber Alvarado MD Attending Provider, Emergency Provider Active Screen Printing Machine Operator Relationship Specialty Start Date End Date Daija Morton MD [address] [place], [place] 18112691 PCP - General Internal Medicine 03/21/17 Kaye Ortega MD [address] [facility] [place] [address] General Surgery 09/21/21 Ye Coello MD [address] [place], [place] 7947[address]85 General Surgery 10/13/21 Emilie Jauregui PA-C [address] [facility] [place], [place] 0501[address] Specialty Pearl Peller Pulmonary and Critical Care Medicine 10/13/21 Ryan May MD [address] [place] [address] Specialty Pearl Peller Vascular Surgery 10/13/21 Geronimo Medina DO [address] [address] Iv Therapy Nurse Cardiology 10/13/21 Tamika Almaguer [facility] Drag Sawyer 09/26/17 Team Status: Active Member Role Status [...] MD Admit Provider, Attending Pro vider Active Screen Printing Machine Operator Relationship Specialty Start Date End Date Daija Morton MD [address] [place], [place] [address]301 PCP - General Internal Medicine 03/21/17 Kaye Ortega MD [address] [facility] [place] [address] General Surgery 09/21/21 Ye Coello MD [address] [place] [address] General Surgery 10/13/21 Emilie Jauregui PA-C [address] [facility] [place] [address] Specialty Pearl Peller Pulmonary and Critical Care Medicine 10/13/21 Ryan May MD [address] [place] [address] Specialty Pearl Peller Vascular Surgery 10/13/21 Geronimo Medina DaishaDO [address] [address] Iv Therapy Nurse Cardiology 10/13/21 [facility] 09/26/17 Team Status: Active Member Role Status [...] Dr. Elton Moore MD Other Provider Active Screen Printing Machine Operator Relationship Specialty Start Date End Date Daija Morton MD [address] [place] [address] PCP - General Internal Medicine 03/21/17 Kaye Ortega MD [address] [place] [address] General Surgery 09/21/21 Ye Coello MD [address] [place], [place] 875225 General Surgery 10/13/21 Emilie Jauregui PA-C [address] [place], [place] 377291 Specialty Pearl Peller Pulmonary and Critical Care Medicine 10/13/21 Ryan May MD [address] [place] [address] Specialty Pearl Peller Vascular Surgery 10/13/21 Geronimo Medina DO [address] [address] Iv Therapy Nurse Cardiology 10/13/21 Tamika Almaguer [facility] Drag Sawyer 09/26/17 Screen Printing Machine Operator Relationship Specialty Start Date End Date Daija Morton MD [address] [place], [place] 365541 PCP - General Internal Medicine 03/21/17 Kaye Ortega MD [address] [place] [address] General Surgery 09/21/21 Ye Coello MD [address] [place], [place] 0[address]555 General Surgery 10/13/21 Emilie Jauregui PA-C [address] [place] [address] Specialty Pearl Peller Pulmonary and Critical Care Medicine 10/13/21 Ryan May MD [address] [place] [address] Specialty Pearl Peller Vascular Surgery 10/13/21 Geronimo Medina DO [address] [place] [address] Iv Therapy Nurse Cardiology 10/13/21 Tamika Almaguer [facility] Drag Sawyer 09/26/17 Screen Printing Machine Operator Relationship Specialty Start Date End Date Daija Morton MD [address] [place], [place] 762921 PCP - General Internal Medicine 03/21/17 Kaye Ortega MD [address] [place] [address] General Surgery 09/21/21 Ye Coello MD [address] [place] [address] General Surgery 10/13/21 Emilie Jauregui PA-C [address] [facility] [place] [address] Specialty Pearl Peller Pulmonary and Critical Care Medicine 10/13/21 Ryan May MD [address] [place] [address] Specialty Pearl Peller Vascular Surgery 10/13/21 Geronimo Medina DO [address] [place] [address] Iv Therapy Nurse Cardiology 10/13/21 Tamika Almaguer [facility] Drag Sawyer 09/26/17 Team Status: Inactive Member Role Status [...] Provi ashley, Attending Provider, Referring Provider Active Screen Printing Machine Operator Relationship Specialty Start Date End Date Daija Morton MD [address] [place], [place] [phone] PCP - General Internal Medicine 03/21/17 Kaye Ortega MD [address] [place] [address] General Surgery 09/21/21 Ye Coello MD [address] [place] [address] General Surgery 10/13/21 Emilie Jauregui PA-C [address] [place], [place] 508381 Specialty Pearl Peller Pulmonary and Critical Care Medicine 10/13/21 Ryan May MD [address] [facility] [place] [address] Specialty Pearl Peller Vascular Surgery 10/13/21 Geronimo Medina DO [address] [place] [address] Iv Therapy Nurse Cardiology 10/13/21 Tamika Almaguer [employer] Drag Sawyer 09/26/17 Team Status: Active Member Role Status [...] Dr. Ryan Guerin DO Attending Provider Active Screen Printing Machine Operator Relationship Specialty Start Date End Date Daija Morton MD [address] [place] [address] PCP - General Internal Medicine 03/21/17 Kaye Ortega MD [address] [place] [address] General Surgery 09/21/21 Ye Coello MD [address] [place], [place] 437775 General Surgery 10/13/21 Emilie Jauregui PA-C [address] [place] [address] Specialty Pearl Peller Pulmonary and Critical Care Medicine 10/13/21 Ryan May MD [address] [place] [address] Specialty Pearl Peller Vascular Surgery 10/13/21 Geronimo Medina DO [address] [place] [address] Iv Therapy Nurse Cardiology 10/13/21 Tamika Almaguer [facility] Drag Sawyer 09/26/17 Screen Printing Machine Operator Relationship Specialty Start Date End Date Daija Morton MD [address] [place] [address] PCP - General Internal Medicine 03/21/17 Kaye Ortega MD [address] [place] [address] General Surgery 09/21/21 Ye Coello MD [address] [place] [address] General Surgery 10/13/21 Emilie Jauregui PA-C [address] [facility] [place] [address] Specialty Pearl Peller Pulmonary and Critical Care Medicine 10/13/21 Ryan May MD [address] [place] [address] Specialty Pearl Peller Vascular Surgery 10/13/21 Geronimo Medina DO [address] [place] [address] Iv Therapy Nurse Cardiology 10/13/21 Tamika Almaguer [facility] Drag Sawyer 09/26/17 Screen Printing Machine Operator Relationship Specialty Start Date End Date Daija Morton MD [address] [place], [place] 533041 PCP - General Internal Medicine 03/21/17 Kaye Ortega MD [address] [place] [address] General Surgery 09/21/21 Ye Coello MD [address] [place], [place] 925855 General Surgery 10/13/21 Emilie Jauregui PA-C [address] [facility] [place] [address] Specialty Pearl Peller Pulmonary and Critical Care Medicine 10/13/21 Ryan May MD [address] [place] [address] Specialty Pearl Peller Vascular Surgery 10/13/21 Geronimo Medina DO [address] [place] [address] Iv Therapy Nurse Cardiology 10/13/21 Tamika HARRELL Drag Sawyer 09/26/17 Screen Printing Machine Operator Relationship Specialty Start Date End Date Daija Morton MD [address] [place], [place] [address]1021 PCP - General Internal Medicine 03/21/17 Kaye Ortega MD [address] [place] [address] General Surgery 09/21/21 Ye Coello MD [address] [place] 704[address] General Surgery 10/13/21 Emilie Jauregui PANeshaC [address] [place] [address] Specialty Pearl Peller Pulmonary and Critical Care Medicine 10/13/21 Ryan May MD [address] [place] [address] Specialty Pearl Peller Vascular Surgery 10/13/21 Geronimo Medina DO [address] [place] [address] Iv Therapy Nurse Cardiology 10/13/21 Tamika HARRELL Drag Sawyer 09/26/17 Screen Printing Machine Operator Relationship Specialty Start Date End Date Daija Morton MD [address] [place] [address] PCP - General Internal Medicine 03/21/17 Kaye Ortega MD [address] [place] [address] General Surgery 09/21/21 Ye Coello MD [address] [place] [address] General Surgery 10/13/21 Emilie Jauregui PA-C [address] [place] [address] Specialty Pearl Peller Pulmonary and Critical Care Medicine 10/13/21 Ryan May MD [address] [facility] [place] [address] Specialty Pearl Peller Vascular Surgery 10/13/21 Geronimo Medina DO [address] [place] [address] Iv Therapy Nurse Cardiology 10/13/21 Tamika Canales Tripp [facility] Drag Sawyer 09/26/17 Screen Printing Machine Operator Relationship Specialty Start Date End Date Daija Morton MD [address] [place], [place] 012267 [phone] PCP - General Internal Medicine 03/21/17 Kaye Ortega MD [address] [place] [address] General Surgery 09/21/21 Ye Coello MD [address] [place] [address] General Surgery 10/13/21 Emilie Jauregui PA-C [address] [place] [address] Specialty Pearl Peller Pulmonary and Critical Care Medicine 10/13/21 Ryan May MD [address] [place] [address] Specialty Pearl Peller Vascular Surgery 10/13/21 Geronimo Medina DO [address] [place] [address] Iv Therapy Nurse Cardiology 10/13/21 Tamika HARRELL Drag Sawyer 09/26/17 Screen Printing Machine Operator Relationship Specialty Start Date End Date Daija Morton MD [address] [place], [place] 196601 PCP - General Internal Medicine 03/21/17 Kaye Ortega MD [address] [place] [address] General Surgery 09/21/21 Ye Coello MD [address] [place], [place] 543675 General Surgery 10/13/21 Emilie Jauregui PA-C [address] [place], [place] 9[address]101 Specialty Pearl Peller Pulmonary and Critical Care Medicine 10/13/21 Ryan May MD [address] [place] [address] Specialty Pearl Peller Vascular Surgery 10/13/21 Geronimo Medina DO [address] [place] [address] Iv Therapy Nurse Cardiology 10/13/21 Tamika HARRELL Drag Sawyer 09/26/17 Screen Printing Machine Operator Relationship Specialty Start Date End Date Daija Morton MD [address] [place] [address] PCP - General Internal Medicine 03/21/17 Kaye Ortega MD [address] [place] [address] General Surgery 09/21/21 Ye Coello MD [address] [place] [address] General Surgery 10/13/21 Emilie Jauregui PA-C [address] [place], [place] 124581 Specialty Pearl Peller Pulmonary and Critical Care Medicine 10/13/21 Ryan May MD [address] [place] [address] Specialty Pearl Peller Vascular Surgery 10/13/21 Geronimo Medina DO [address] [place] [address] Iv Therapy Nurse Cardiology 10/13/21 Tamika HARRELL Drag Sawyer 09/26/17 Screen Printing Machine Operator Relationship Specialty Start Date End Date Daija Morton MD [address] [place] [address] PCP - General Internal Medicine 03/21/17 Kaye Ortega MD [address] [place] [address] General Surgery 09/21/21 Ye Coello MD [address] [place] [address] General Surgery 10/13/21 Emilie Jauregui PA-C [address] [place] [address] Specialty Pearl Peller Pulmonary and Critical Care Medicine 10/13/21 Ryan May MD [address] [facility] [address] Specialty Pearl Peller Vascular Surgery 10/13/21 Geronimo Medina DO [address] [place] [address] Iv Therapy Nurse Cardiology 10/13/21 Tamika HARRELL Drag Sawyer 09/26/17 Screen Printing Machine Operator Relationship Specialty Start Date End Date Daija Morton MD [address] [place], [place] [address]1371 PCP - General Internal Medicine 03/21/17 Beatriz Correa CNP [address] [facility] [place] [address] Referring 09/28/20 10/12/21 Daija Morton MD [address] [place], [place] 126521 Home Care Provider Internal Medicine 09/28/20 10/12/21 Fco Franklin, RN [address] [place] [address] Meat Pumper 10/08/20 12/21/20 Tamika HARRELL Drag Sawyer 09/26/17 Screen Printing Machine Operator Relationship Specialty Start Date End Date Daija Morton MD [address] [place] [address] PCP - General Internal Medicine 03/21/17 Kaye Ortega MD [address] [place] [address] General Surgery 09/21/21 Ye Coello MD [address] [place], [place] 109465 General Surgery 10/13/21 Emilie Jauregui PA-C [address] [place] [address] Specialty Pearl Peller Pulmonary and Critical Care Medicine 10/13/21 Ryan May MD [address] [place] [address] Specialty Pearl Peller Vascular Surgery 10/13/21 Geronimo Medina DO [address] [place] [address] Iv Therapy Nurse Cardiology 10/13/21 Tamika Almaguer [facility] Drag Sawyer 09/26/17 Screen Printing Machine Operator Relationship Specialty Start Date End Date Daija Morton MD [address] [place] [address] PCP - General Internal Medicine 03/21/17 Kaye Ortega MD [address] [place] [address] General Surgery 09/21/21 Ye Coello MD [address] [place] 450675 General Surgery 10/13/21 Emilie Jauregui PA-C [address] [place], [place] 823821 Specialty Pearl Peller Pulmonary and Critical Care Medicine 10/13/21 Ryan May MD [address] [facility] [place], [place] 79[address] Specialty Pearl Peller Vascular Surgery 10/13/21 Geronimo Medina DO [address] [place] [address] Iv Therapy Nurse Cardiology 10/13/21 Tamika Canales Tripp [facility] Drag Sawyer 09/26/17 Screen Printing Machine Operator Relationship Specialty Start Date End Date Daija Morton MD [address] [place], [place] [id number] PCP - General Internal Medicine 03/21/17 Kaye Ortega MD [address] [place] [address] General Surgery 09/21/21 Ye Coello MD [address] [place] [address] General Surgery 10/13/21 Emilie Jauregui PA-C [address] [place], [place] [address]85237 [phone] Specialty Pearl Peller Pulmonary and Critical Care Medicine 10/13/21 Ryan May MD [address] [facility] [address] Specialty Pearl Peller Vascular Surgery 10/13/21 Geronimo Medina DO [address] [place] [address] Iv Therapy Nurse Cardiology 10/13/21 Tamika [employer] Drag Sawyer 09/26/17 Screen Printing Machine Operator Relationship Specialty Start Date End Date Daija Morton MD [address] [place] [address] PCP - General Internal Medicine 03/21/17 Kaye Ortega MD [address] [place] [phone] General Surgery 09/21/21 Ye Coello MD [address] [place], [place] 58984685 General Surgery 10/13/21 Emilie Jauregui PA-C [address] [place], [place] 940191 Specialty Pearl Peller Pulmonary and Critical Care Medicine 10/13/21 Ryan May MD [address] [place] [address] Specialty Pearl Peller Vascular Surgery 10/13/21 Geronimo Medina DO [address] [place] [address] Iv Therapy Nurse Cardiology 10/13/21 Tamika HARRELL Drag Sawyer 09/26/17 Team Status: Active Member Role Status [...] November 05, 2024 End: November 05, 2024 Screen Printing Machine Operator Relationship Specialty Start Date End Date Daija Morton MD [address] [place], [place] 844001 PCP - General Internal Medicine 03/21/17 Kaye Ortega MD [address] [place] [address] General Surgery 09/21/21 Ye Coello MD [address] [place], [place] 148465 General Surgery 10/13/21 Emilie Jauregui, PA-C [address] [place], [place] 838131 Specialty Pearl Peller Pulmonary and Critical Care Medicine 10/13/21 Ryan May MD [address] [facility] [address] Specialty Pearl Peller Vascular Surgery 10/13/21 Geronimo Medina DO [address] [place] [address] Iv Therapy Nurse Cardiology 10/13/21 Anjel Braga APRN.QUALITY ENGINEER [address] [place] [address] Zoology Professor Internal Medicine 05/26/24 Tamika Almaguer [employer] Drag Sawyer 09/26/17 Screen Printing Machine Operator Relationship Specialty Start Date End Date Daija Morton MD [address] [place], [place] 773161 PCP - General Internal Medicine 03/21/17 Kaye Ortega MD [address] [place] [address] General Surgery 09/21/21 Ye Coello MD [address] [place] [address] General Surgery 10/13/21 Emilie Jauregui, PA-C [address] [place] [address] Specialty [facility] Pulmonary and Critical Care Medicine 10/13/21 Ryan May MD [address] [facility] [address] Specialty [facility] Vascular Surgery 10/13/21 Geronimo Medina DO [address] [place] [address] Iv Therapy Nurse Cardiology 10/13/21 Anjel Braga APRN.QUALITY ENGINEER [address] [place], [place] [address] Zoology Professor Internal Medicine 05/26/24 Tamika Almaguer [employer] Drag Sawyer 09/26/17 Screen Printing Machine Operator Relationship Specialty Start Date End Date Daija Morton MD [address] [place], [place] [id number] PCP - General Internal Medicine 03/21/17 Kaye Ortega MD [address] [place] [phone] General Surgery 09/21/21 Ye Coello MD [address] [place] [address] General Surgery 10/13/21 Emilie Jauregui PA-C [address], [place] [id number] Specialty [facility] Pulmonary and Critical Care Medicine 10/13/21 Ryan May MD [address] [place] [address] Specialty [facility] Vascular Surgery 10/13/21 Geronimo Medina DO [address] [place] [address] Iv Therapy Nurse Cardiology 10/13/21 Anjel Braga APRN.QUALITY ENGINEER [address] [place] [address] Zoology Professor Internal Medicine 05/26/24 Tamika Almaguer [facility] Drag Sawyer 09/26/17 Screen Printing Machine Operator Relationship Specialty Start Date End Date Daija Morton MD [address] [place] [address] PCP - General Internal Medicine 03/21/17 Kaye Ortega MD [address] [place] [phone] General Surgery 09/21/21 Ye Coello MD [address] [place], [place] [address] General Surgery 10/13/21 Emilie Jauregui PA-C [address] [place], [place] [address] Specialty [facility] Pulmonary and Critical Care Medicine 10/13/21 Ryan May MD [address] [place] [address] Specialty [facility] Vascular Surgery 10/13/21 Geronimo Medina DO [address] [place] [address] Iv Therapy Nurse Cardiology 10/13/21 Anjel Braga APRN.QUALITY ENGINEER [address] [place] [address] Zoology Professor Internal Medicine 05/26/24 Tamika Almaguer [facility] Drag Sawyer 09/26/17 Screen Printing Machine Operator Relationship Specialty Start Date End Date Daija Morton MD [address] [place] [address] PCP - General Internal Medicine 03/21/17 Kaye Ortega MD [address] [place] [address] General Surgery 09/21/21 Ye Coello MD [address] [place] [address] General Surgery 10/13/21 Emilie Jauregui PA-C [address], [place] [address] Specialty [facility] Pulmonary and Critical Care Medicine 10/13/21 Ryan May MD [address] [place], [place] [id number] Specialty [facility] Vascular Surgery 10/13/21 Geronimo Medina DO [address] [place] [address] Iv Therapy Nurse Cardiology 10/13/21 Anjel Braga APRN.QUALITY ENGINEER [address] [place], [place] [address] Zoology Professor Internal Medicine 05/26/24 Tamika Canales [facility] Drag Sawyer 09/26/17 Screen Printing Machine Operator Relationship Specialty Start Date End Date Daija Morton MD [address] [place], [place] [id number] PCP - General Internal Medicine 03/21/17 Kaey Ortega MD [address] [place] [phone] General Surgery 09/21/21 Ye Coello MD [address] [place], [place] [address] General Surgery 10/13/21 Emilie Jauregui PA-C [address], [place] [phone] Specialty [facility] Pulmonary and Critical Care Medicine 10/13/21 Ryan May MD [address] [place], [place] [phone] Specialty [facility] Vascular Surgery 10/13/21 Geronimo Medina DO [address] [place] [address] Iv Therapy Nurse Cardiology 10/13/21 Anjel Braga APRN.QUALITY ENGINEER [address] [place] [address] Zoology Professor Internal Medicine 05/26/24 Tamika Canales Tripp [facility] Drag Sawyer 09/26/17 Team Status: Active Member Role/Relationship Status [...] Provider Active Start: August 29, 2024 Dr. Jadne Jauregui MD Emergency Provider Active Start: August [...] Provider Active Start : December 16, 2024 Screen Printing Machine Operator Relationship Specialty Start Date End Date Daija Morton MD [address] [place] [address] PCP - General Internal Medicine 03/21/17 Kaye Ortega MD [address] [place] [address] General Surgery 09/21/21 Ye Coello MD [address] [place] [address] General Surgery 10/13/21 Emilie Jauregui PA-C [address] [place], [place] [address] Specialty [facility] Pulmonary and Critical Care Medicine 10/13/21 Ryan May MD [address] [place] [address] Specialty [facility] Vascular Surgery 10/13/21 Geronimo Medina DO [address] [place] [address] Iv Therapy Nurse Cardiology 10/13/21 Ajnel Braga APRN.QUALITY ENGINEER [address] [place] [address] Zoology Professor Internal Medicine 05/26/24 Tamika Almaguer [facility] Drag Sawyer 09/26/17 Screen Printing Machine Operator Relationship Specialty Start Date End Date Daija Morton MD [address] [place] [address] PCP - General Internal Medicine 03/21/17 Kaye Ortega MD [address] [place] [phone] General Surgery 09/21/21 Ye Coello MD [address] [place] [address] General Surgery 10/13/21 Emilie Jauregui PA-C [address] [place], [place] [phone] Specialty [facility] Pulmonary and Critical Care Medicine 10/13/21 Ryan May MD [address] [place] [address] Specialty [facility]eller Vascular Surgery 10/13/21 Geronimo Medina DO [address] [place] [address] Iv Therapy Nurse Cardiology 10/13/21 Anjel Braga APRN.QUALITY ENGINEER [address] [place], [place] [phone] Zoology Professor Internal Medicine 05/26/24 Tamika Almaguer [facility] Drag Sawyer 09/26/17 Team Status: Active Member Role/Relationship Status Dates Dr. Daija Morton MD Primary Care Provider Active Start: December 17, 2024 Dr. Seth Pritchard DO Emergency Provider Active Start: December 17, 2024 Dr. Roman Patel DO Admit Provider Active Start: December 17, 2024 Dr. Roman Patel DO Attending Provider Active Start: December 17, 2024 Screen Printing Machine Operator Relationship Specialty Start Date End Date Daija Morton MD [address] [place], [place] [id number] PCP - General Internal Medicine 03/21/17 Kaye Ortega MD [address] [place] [phone] General Surgery 09/21/21 Ye Coello MD [address] [place], [place] [address] General Surgery 10/13/21 Emilie Jauregui PA-C [address] [place], [place] [phone] Specialty [facility] Pulmonary and Critical Care Medicine 10/13/21 Ryan May MD [address] [facility] [place] [address] Specialty [facility]eller Vascular Surgery 10/13/21 Geronimo Medina DO [address] [place] [address] Iv Therapy Nurse Cardiology 10/13/21 Anjel Braga APRN.QUALITY ENGINEER [address] [place], [place] [phone] Zoology Professor Internal Medicine 05/26/24 Tamika Almaguer [facility] Drag Sawyer 09/26/17 Team Status: Inactive Member Role/Relationship Status Dates Dr. Daija Morton MD Primary Care Provider Active Start: August 27, 2024 End: September 02, 2024 Dr. Jadne Jauregui MD Emergency Provider Active Start: August 27, 2024 End: September 02, 2024 Dr. Lisha Talamantes DO Admit Provider Active Start : August 27, 2024 End: September 02, 2024 Dr. Lihsa Talamantes DO Other Provider [...] Provider Active Start: September 01, 2024 Dr. Lihsa Talamantes DO Admit Provider Active Start : [...] Provider Active Start : December 26, 2024 Screen Printing Machine Operator Relationship Specialty Start Date End Date Daija Morton MD [address] [place], [place] [address] PCP - General Internal Medicine 03/21/17 Kaye Ortega MD [address] [place] [address] General Surgery 09/21/21 Ye Coello MD [address] [place] [address] General Surgery 10/13/21 Emilie Jauregui PA-C [address] [place] [address] Specialty [facility] Pulmonary and Critical Care Medicine 10/13/21 Ryan May MD [address] [place] [address] Specialty [facility]eller Vascular Surgery 10/13/21 Geronimo Medina DO [address] [place] [address] Iv Therapy Nurse Cardiology 10/13/21 Anjel Braga APRN.CNP [address] [place], [place] [phone] Zoology Professor Internal Medicine [facility]/26[facility]26[facility]17 Team Status: Active Member Role/Relationship Status [...] 18, 2024 End: December 26, 2024 Dr. Lihsa Talamantes DO Other Provider [...] Start : December 24, 2024 Dr. Hans Rosaels MD Other Provider Active St art: December [...] BE BASED ON THE PRIMARY CLINICAL RECORDS. [facility] [email or web address][employer] [facility]. provides no warranty or guarantee of the accuracy or completeness of information in this document.
[2025-01-05] MEDS: Piperacil/Tazobactam 4.5 GM in 0.9% Normal Saline (100mL MB+) 100 ML IV (13:58)
[2025-01-05] MEDS: 0.9% Normal Saline (1000mL) 1,000 ML 100 ML IV (15:38)
[2025-01-05] MEDS: 0.9% Saline Lock 10 ML Syringe IV (15:46)
--- NOTE | 2025-01-05 19:46 | EX.PCM.CON.G ---
HPI Consult Data Date of Consult: 01/05/25 HPI Narrative HPI Narrative: PEDRO PABLO SIERRA, is a 74-year-old male known to the GI service. He was recently admitted for acute CVA with severe dysarthria, right-sided facial droop. I was consulted on last hospitalization for PEG tube placement due to severe dysarthria and oropharyngeal dysphagia. He has history of hypertension, chronic kidney disease, chronic normocytic anemia, PAF, hyperlipidemia, BPH with obstructive pathology, GERD, seizure disorder, tobacco abuse, obstructive sleep apnea with noncompliance, peripheral arterial disease, former alcoholic. Currently he pulled his PEG tube out and I was reconsulted in order to put the PEG tube back in. [facility] Medical History Acute CVA (cerebrovascular accident) Aphasia Hypertension Weakness Debility Failure to thrive Compression fx, lumbar spine Hypertension Falls Hypertension Closed fracture of right superior pubic ramus Multiple falls Compression fracture of thoracic vertebra History of atrial fibrillation Iron deficiency anemia Chronic respiratory failure with hypoxia Osteoporosis Lumbar compression fracture Compression fracture Obstructive sleep apnea Hyperlipidemia Asthma Peripheral arterial occlusive disease Seizure disorder Chronic obstructive pulmonary disease Coronary artery disease Lupus anticoagulant disorder BPH (benign prostatic hyperplasia) Ulcerative colitis Peripheral vascular disease Anxiety COPD (chronic obstructive pulmonary disease) with emphysema Closed fracture of right inferior pubic ramus Acute UTI COPD (chronic obstructive pulmonary disease) UTI (urinary tract infection) Depression Diabetes Kidney stones Chronic pain Pancreatitis On home oxygen therapy Irregular heart beat Atrial fibrillation Stroke/cerebrovascular accident Smoker Falls frequently Seizures Sleep apnea COPD (chronic obstructive pulmonary disease) Asthma High cholesterol Tobacco abuse Home Medications ?Medication ?Instructions ?Recorded ?Last Taken ?Type atorvastatin 40 mg tablet 40 mg PO QHS Cholesterol 09/23/15 12/12/24 History alendronate 70 mg tablet 70 mg PO QWEEK OSTEOPROSIS #1 TAB 11/30/21 12/09/24 Rx acetaminophen 325 mg tablet 650 mg (2 x 325 mg) feeding tube 12/24/24 Unknown Rx Q6H PRN PRN Pain 1-10 Or Fever>100.7 #0 tabs albuterol sulfate 2.5 mg/3 mL 2.5 mg (3 mL) inhalation Q4H PRN 12/24/24 Unknown Rx (0.083 %) solution for nebulization DYSPNEA/WHEEZING/SOB #0 mL amlodipine 10 mg tablet 10 mg G-tube DAILY.RT #0 tabs 07/08/25 Unknown Rx carbamazepine 100 mg/5 mL oral 200 mg (10 mL) G-tube 4X/DAY #0 mL 12/24/24 Unknown Rx suspension cholecalciferol (vitamin D3) 50 50 mcg feeding tube DAILY 12/24/24 01/05/25 Rx mcg (2,000 unit) tablet SUPPLEMENT 30 days #30 tabs clonidine 0.2 mg/24 hr weekly 0.2 mg transdermal Q7D #0 ea 12/24/24 Unknown Rx transdermal patch ergocalciferol (vitamin D2) 1,250 1,250 mcg feeding tube Q7D 12/24/24 12/13/24 08:58 Rx mcg (50,000 unit) capsule (Vitamin SUPPLEMENT #0 caps D2) finasteride 5 mg tablet 5 mg feeding tube DAILY prostate 12/24/24 12/13/24 08:58 Rx 30 days #30 tabs gabapentin 100 mg capsule 100 mg feeding tube DAILY PAIN 30 12/24/24 12/13/24 08:58 Rx days #30 caps ipratropium 0.5 mg-albuterol 3 mg 3 ml inhalation .q6hwa #0 mL 12/24/24 Unknown Rx (2.5 mg base)/3 mL nebulization soln lactose-reduced food with fiber 55 ml feeding tube .18hours #5,688 12/24/24 Unknown Rx 0.06 gram-1.5 kcal/mL oral liquid mL (Jevity 1.5 Alex) losartan 100 mg tablet 100 mg feeding tube DAILY Blood 12/24/24 12/13/24 08:58 Rx pressure 30 days #30 tabs melatonin 3 mg tablet 3 mg G-tube QHS PRN PRN Insomnia 12/24/24 Unknown Rx #0 tabs mirtazapine 15 mg tablet 15 mg feeding tube QHS anti 12/24/24 12/12/24 20:59 Rx depressant 30 days #30 tabs prednisone 20 mg tablet 40 mg (2 x 20 mg) G-tube BREAKFAST 12/24/24 Unknown Rx 5 days #10 tabs sertraline 100 mg tablet 100 mg feeding tube DAILY 12/24/24 Unknown Rx DEPRESSION 30 days #30 tabs thiamine HCl (vitamin B1) 100 mg 100 mg G-tube BREAKFAST #0 tabs 12/24/24 Unknown Rx tablet apixaban 5 mg tablet (Eliquis) 5 mg PO BID 01/03/25 Unknown History atorvastatin 40 mg tablet (Lipitor) 40 mg PO DAILY 01/03/25 Unknown History hydralazine 25 mg tablet 50 mg G-tube 3XD 01/03/25 Unknown History metoprolol tartrate 25 mg tablet 50 mg feeding tube BID Blood 01/03/25 Unknown History pressure pantoprazole 40 mg granules 40 mg PO DAILY 01/03/25 Unknown History delayed-release for susp in packet (Protonix) Allergy/AdvReac Type Severity Reaction Status Date / Time No Known Allergies Allergy Verified 01/03/25 06:32 Family History Mother Heart disease CVA (cerebral vascular accident) Hypertension Father Heart disease CVA (cerebral vascular accident) Hypertension Surgical History S/P arterial stent History of appendectomy Social History household members: family housing: other details: [facility] 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 Smoking Status: Unknown if ever smoked alcohol intake: former details: Former alcoholic quit several years ago substance use type: does not use caffeine: Yes Type: coffee Number of servings: 3 ROS ROS Narrative Unable to obtain patient is aphasic Physical Exam Narrative GENERAL: On a Ventimask HEENT: Atraumatic; normocephalic EYES; Anicteric, Normal Conjunctiva NECK; supple, normal thyroid, RESPIRATORY: Diminished to auscultation, bilateral rhonchi CARDIOVASCULAR: Regular S1 S2, GI: soft, normoactive bowel sounds, : No Renal angle tenderness; EXTREMITIES: No edema, no clubbing, MUSCULOSKELETAL: no muscle wasting NEURO: Awake; aphasic SKIN: No Rash PSYCH; Flat affect Const alert and no apparent distress GI normal to inspection, nondistended, normoactive bowel sounds, soft to palpation, non-tender and non-distended Percussion: normal to percussion Rectal Exam: deferred Lab / Micro Data 01/05/25 09:45 01/05/25 09:45 Labs: Laboratory Results - last 24 hr 01/05/25 09:45: WBC 10.2, RBC 4.53 L, Hgb 12.6 L, Hct 39.6 L, MCV 87.4, MCH 27.8, MCHC 31.8 L, RDW Std Deviation 48.0 H, RDW Coeff of Aly 15.1 H, Plt Count 462 H, MPV 9.8, Immature Gran % (Auto) 0.500, Neut % (Auto) 76.7 H, Lymph % (Auto) 14.2 L, [place] % (Auto) 7.0, Eos % (Auto) 1.2, Baso % (Auto) 0.4, Absolute Neuts (auto) 7.8 H, Absolute Lymphs (auto) 1.45, Nucleated RBC % 0, Sodium 135, Potassium 4.3, Chloride 93 L, Carbon Dioxide 28.4, Anion Gap 14, BUN 24 H, Creatinine 1.25 H, Estim Creat Clear Calc 54.46, Est GFR (MDRD) Non-Af 60, BUN/Creatinine Ratio 18.8, Glucose 123 H, Lactic Acid 1.1, Calcium 10.3, Total Bilirubin 0.25, AST 32, ALT 33, Alkaline Phosphatase 83, Total Protein 7.8, Albumin 4.6, Globulin 3.2, Albumin/Globulin Ratio 1.4 Micro: Microbiology 01/05/25 15:40 Mucosa - Nasopharyngeal Coronavirus COVID-19 PCR - Final 01/05/25 15:40 Mucosa - Nasopharyngeal Respiratory Panel (PCR) - Final 01/05/25 16:36 Urine, Clean Catch Legionella Antigen - Final 01/05/25 16:36 Urine, Clean Catch Streptococcus pneumoniae Antigen (M - Final ABG Data ABG results: ABG 01/05/25 13:14 Specimen Type ART Sample Site L Radial pH 7.45 Bicarbonate Actual 33.0 H Total CO2 35 Base Excess 9 H O2 Saturation 88 L O2 % 6.0 ABG pCO2 47.9 H ABG pO2 52 L Dann Test Positive O2 Delivery Device Cannula Vent Mode Not entered Imaging Radiology Impression Chest X-Ray 01/05/25 09:59 IMPRESSION: COPD. No acute findings. Reading Location: [id number] X-Ray 01/05/25 13:02 IMPRESSION: A PEG tube tip is projected in the region of the stomach. Contrast material is identified within the stomach. There is no extravasation of the contrast. Reading Location: [id number] Assessment & Plan Assessment/Plan (1) PEG tube malfunction: PLAN: 74-year-old with multiple comorbidities who recently pulled his PEG tube out. We will take him for endoscopy tomorrow for PEG tube replacement. His bowel return was explained alternatives, benefits, risk including understanding bleeding, infection, sepsis, perforation, need for more surgery and . He will have an ASA of 3. Charges/Coding Visit Charges Inpatient E&M: 76593 Init Hosp L3
[2025-01-05] MEDS: levoFLOXacin IV 500 MG/100 ML BAG 100 MG IV (21:34)
[2025-01-05] MEDS: Piperacil/Tazobactam 3.375 GM in 0.9% Normal Saline (50mL MB+) 50 ML IV (21:36)
--- NOTE | 2025-01-05 22:04 | EKG12_ITS ---
Test Reason : ARRHYTHMIA Blood Pressure : */* mmHG Vent. Rate : 91 BPM Atrial Rate : 91 BPM P-R Int : 240 ms QRS Dur : 88 ms QT Int : 346 ms P-R-T Axes : 72 58 87 degrees QTcB Int : 425 ms Sinus rhythm with 1st degree A-V block with Premature atrial complexes Nonspecific ST abnormality Abnormal ECG When compared with ECG of 17-Dec-2024 16:11, Sinus rhythm has replaced Atrial fibrillation Confirmed by Juan Downey ([id number]), editorial writer RAE NATH ([id number]) on 01/07/2025 5:43:07 AM Referred By: DR Marsh Confirmed By: Juan Downey
[2025-01-05 23:03] LABS: Troponin T High Sensitivity 22 ng/L (<=22)
[2025-01-06] VITALS (26 sets, daily range): BP systolic 131–193; BP diastolic 58–114; PULSE 65–129; RESP 18–46; TEMP 36.3–37.7; O2SAT 8–100; BMI 19.8
[2025-01-06 00:56] LABS: Troponin T High Sens 2 HR 23 ng/L (<=22)
[2025-01-06 02:50] LABS: Hematocrit 35.8 % (40-54); Hemoglobin 11.2 g/dL (13.0-16.5); Immature Granulocytes Count 0.040 X10^3/uL (0.0-0.0); Mean Corp Hgb Conc 31.3 g/dL (32-36); Mean Corpuscular Volume 88.8 fL (80-94); Mean Platelet Vol. 9.9 fl (6.2-12.0); NRBC Flagged by Analyzer 0 % (0-5); POSITIVE DIFFERENTIAL YES; Platelet Count 385 K/mm3 (150-450); RBC Distribution Width CV 15.3 % (11.6-14.6); RBC Distribution Width SD 49.7 fl (35.1-43.9); Red Blood Count 4.03 M/mm3 (4.6-6.2); White Blood Count 12.0 K/mm3 (4.4-11.0)
[2025-01-06 03:08] LABS: Troponin T High Sens 4 HR 26 ng/L (<=22)
[2025-01-06 03:14] LABS: Anion Gap 12 (5-15); BUN 20 mg/dL (4-19); BUN/Creat Ratio 14.2 RATIO (10-20); Calcium,Total 9.3 mg/dL (7.6-11.0); Carbon Dioxide 27.9 mmol/L (21.0-32.0); Chloride 98 mmol/L (98-108); Estimated Creatinine Clearance 48.28 ml/min (50-250); Glucose 111 mg/dL (70-99); Magnesium 2.1 mg/dL (1.5-2.2); Potassium 4.9 mmol/L (3.3-5.1)
[2025-01-06] MEDS: 0.9% Normal Saline (1000mL) 1,000 ML 100 ML IV ×2 (05:10→18:07)
[2025-01-06] MEDS: Piperacil/Tazobactam 3.375 GM in 0.9% Normal Saline (50mL MB+) 50 ML IV ×3 (05:12→20:53)
--- NOTE | 2025-01-06 05:50 | RAD_ITS ---
PROCEDURE: CHEST PA AND LATERAL 01/06/2025 REASON FOR EXAM: [id number] TECHNIQUE: CHEST PA AND LATERAL COMPARISON: January 05, 2025 FINDINGS: Heart size is within normal limits. Central vascularity is normal. There is atelectasis or scar in the left perihilar region. There is no pneumothorax or effusion. Aortic calcifications are noted. There is no acute bony abnormality. RAD/Chest PA and Lateral IMPRESSION: There is atelectasis or scar in the left perihilar region. Reading Location: [facility]
--- NOTE | 2025-01-06 09:52 | CASEMGMT ---
Social Work SW called pt's ex-/POA Giovana Bhakta(documents on chart) in regard to discharge plan. She was not aware that pt was in the hospital. Upon further discussion it does sound like Yevgeniy Finch reached out to either her or pt's daughter, Giovana does not recall which phone they called, and let them know pt was coming to the hospital. However, it seems that nobody followed up w/her to let her know that the pt was admitted. NATHANIEL will check in w/[facility] about this and remind them she is POA for healthcare. Giovana would like pt to return to [facility] when medically ready, SNF list not needed at this time. NATHANIEL will update d/c vacation planner Jacquie to send updates. NATHANIEL did call Kathy in admissions however she is on vacation this week. NATHANIEL will ask Jacquie to send a message in [facility] reminding them Giovana is POA and she was not notified pt was admitted to the hospital. NATHANIEL will continue to follow. Plan: Yevgeniy Finch, will need a new precert to return EVELIN Garcia
--- NOTE | 2025-01-06 10:28 | CASEMGMT ---
Addendum entered by Jacquie Michaud 01/06/25 11:34: Pt will need precert unless he returns today. Jacquie Michaud DC Planning Asst. Addendum entered by Jacquie Michaud 01/06/25 10:31: *asked if precert will be needed to return. Awaiting response. Jacquie Michaud DC Planning Asst. Original Note: Discharge Planning Updates sent to [facility]. Jacquie Michaud DC Planning Asst.
--- NOTE | 2025-01-06 15:42 | PCM.PRE.AN2 ---
ASA Classification* ASA Classification ASA Classification: 4 and E Assessment & Plan Anesthesia* Anesthesia Assessment Anesthesia Assessment: Discussed sedation and/or anesthesia options, risks, benefits, and alternatives with patient/parents/legal guardian/POA. Questions invited. The patient/parents/legal guardian/POA seems to understand and agrees to proceed with anesthesia plan. Reviewed the physical assessment, medical history, allergy history and patient home medications list prior to surgery/procedure/anesthetic and documented any changes. Performed airway and anesthesia risk assessments. Anesthesia Type Anesthesia Type: MAC History Source History Obtained from:: Chart and Parent/ Guardian (Patient's ex- is the medical power of mergers and acquisitions attorney (Giovana Bhakta).) Anesthesia Focused Assessment* Temperature: 97.3 F Pulse Rate: 72 Blood Pressure: 166/83 Respiratory Rate: 25 Pulse Ox: 95 Oxygen Delivery Method: Nasal Cannula Oxygen Flow Rate (L/min): 8 Fraction of Inspired Oxygen (FIO2): 35 Airway Assessment Mouth opens: 2 cm Mallampati Score: IV Teeth Condition: Missing (Multiple missing teeth. Remaining teeth are tight) Labs Anesthesia Preop lab: CBC WBC 12.0 K/mm3 (4.4-11.0) H 01/06/25 02:30 01/06/25 RBC 4.03 M/mm3 (4.6-6.2) L 01/06/25 02:30 01/06/25 Hgb 11.2 g/dL (13.0-16.5) L 01/06/25 02:30 01/06/25 Hct 35.8 % (40-54) L 01/06/25 02:30 01/06/25 Plt Count 385 K/mm3 (150-450) 01/06/25 02:30 01/06/25 CHEMISTRY Potassium 4.9 mmol/L (3.3-5.1) 01/06/25 02:30 01/06/25 Sodium 138 mmol/L (133-145) 01/06/25 02:30 01/06/25 Magnesium 2.1 mg/dL (1.5-2.2) 01/06/25 02:30 01/06/25 Phosphorus 3.2 mg/dL (2.7-4.5) 01/06/25 02:30 01/06/25 BUN 20 mg/dL (4-19) H 01/06/25 02:30 01/06/25 Creatinine 1.41 mg/dL (0.70-1.20) H 01/06/25 02:30 01/06/25 Glucose 111 mg/dL (70-99) H 01/06/25 02:30 01/06/25 POC Glucose 83 mg/dL (74-106) 02/20/24 17:14 02/20/24 TSH 3.380 uIU/mL (0.300-4.200) 12/17/24 16:00 12/17/24 COAG PT 12.8 SECONDS (11.7-14.9) 12/17/24 16:00 12/17/24 Pre-Assessment Diagnosis/Proposed Procedure Planned Operative Procedure(s): EGD with PEG tube placement. 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 - minilab operator: Anesthesia History - minilab operator Hx Hospitalization Yes 08/08/20 16:59 Any Problems With Anesthesia No 12/23/24 09:15 Cholinesterase deficiency No 12/23/24 09:15 You/Your Family Experience No 12/23/24 09:15 fever (hyperthermia) with Relationship Recent Exposure to Contagious No 12/23/24 09:15 Disease Does patient have nerve No 12/23/24 09:15 stimulator Patient instructed to have device shut off --Does patient have Pacemaker or ICD? When Was Last Pacemaker Check QUESTION #4 FULL TEXT: You/Your Family Experience fever (hyperthermia) with Anesthesia Last Oral Intake Last Oral intake: Last Oral Intake NPO since Meds taken in AM with sips of water? Meds patient instructed to take am of surgery Any additional information?: Yes NPO since: 00:00 PONV PONV - minilab operator: PONV - minilab operator Female HX of Motion Sickness HX of N/V After Surgery Non-Smoker Duration of Surgery greater than 60 minutes Number of Risk Factors PONV Score Height & Weight Height & Weight: Anesthesia: Height & Weight Height 6 ft 01/06/25 08:50 Weight: 66.5 kg 01/06/25 08:50 Body Mass Index (BMI) 19.8 01/06/25 05:00 Respiratory Assessment Respiratory Assessment - minilab operator: Respiratory Tract Infection Hx - minilab operator Hx Respiratory Tract Infection No 12/23/24 09:15 Any additional information?: Yes Hx Respiratory Tract Infection: Yes History of Anesthesia Respiratory Infection details: Patient had an episode of aspiration pneumonia yesterday at the skilled nursing. Patient had to be put up to 10 L of oxygen on the Ventimask. He is currently on 8 L nasal cannula. STOP Sleep Apnea STOP Sleep Apnea - minilab operator: STOP Sleep Apnea - minilab operator Hx Hypertension Yes 01/05/25 14:48 Hx Sleep Apnea No 01/05/25 14:48 CPAP No 01/05/25 14:48 BIPAP No 01/05/25 14:48 Do you snore loudly (louder No 01/05/25 14:48 than talking or can be heard Do you often feel tired/ No 01/05/25 14:48 fatigued/ sleepy during daytime? Has anyone observed you stop No 01/05/25 14:48 breathing during sleep? STOP Results Negative 01/05/25 14:48 QUESTION #5 FULL TEXT : Do you snore loudly (louder than talking or can be heard through closed doors)? Tobacco Use History Tobacco Use History - minilab operator: Tobacco Use History - minilab operator Tobacco Use Cigarettes 12/26/24 04:00 Smoking Status Unknown if ever smoked 01/05/25 14:48 Hx Tobacco Use No: unknown 01/05/25 14:48 Years Smoking Packs Smoked per Day Smoking Cessation Date was Yes - quit smoking within 15 01/05/25 09:44 within the last 15 years years Hx Smoking Cessation Date Hx Smoking Cessation No 01/05/25 14:48 Counseling Hematologic Medial History Hematologic Hx - minilab operator: Hematologic Medical Hx - securities analyst Hx of Blood Transfusion No 01/05/25 14:48 Hx of Transfusion in last 3 No 01/05/25 14:48 Months Date of Last Transfusion (if within last 3 months) Ever experience any problems No 01/05/25 14:48 with transfusion(s)? Specify any problems Hx of Preganancy in last 3 N/A 01/05/25 14:48 Months Nurse Filling Out Transfusion JNORRIS 01/05/25 14:48 & Questions: Date: 01/05/25 01/05/25 14:48 Time: 15:10 01/05/25 14:48 Patient unable to answer at this time (ie. confused, unrespo /Reproduction History /Reproductive History - minilab operator: /Reproductive Hx- minilab operator Hx Now Gestational Age (in weeks): EDC: Hx Hx Para Hx Section SAB No 11/27/21 05:25 Active Medications Active Medications: Current Medications Generic Name Dose Route Start Last Admin Trade Name Freq PRN Reason Stop Dose Admin Acetaminophen 650 mg 01/05/25 14:46 Acetaminophen 325 Mg Tablet GT Q6H PRN PRN Pain 1-10 Or Fever>100.7 Albuterol Sulfate 2.5 mg 01/05/25 14:46 Albuterol 2.5 Mg/3 Ml Vial.Neb. INHALATION Q4H PRN DYSPNEA/WHEEZING/SOB Albuterol/Ipratropium 3 ml 01/05/25 14:46 01/06/25 06:47 Ipratropium/Albuterol Sulfate 3 Ml Ampul.Neb INHALATION 3 ml Q6HWA.RT LEON Administration Amlodipine Besylate 10 mg 01/06/25 10:00 01/06/25 11:36 Amlodipine 10 Mg Tablet GT Not Given DAILY LEON Protocol Apixaban 5 mg 01/05/25 22:00 01/06/25 11:35 Apixaban 5 Mg Tablet GT Not Given BID LEON Atorvastatin Calcium 40 mg 01/06/25 22:00 Atorvastatin Calcium 40 Mg Tablet GT QHS LEON Carbamazepine 200 mg 01/05/25 14:46 01/06/25 14:28 Carbamazepine 200 Mg/10 Ml Udc ([facility]) GT Not Given 4X/DAY LEON Cholecalciferol 50 mcg 01/06/25 10:00 01/06/25 11:36 Cholecalciferol (Vit D3) 25 Mcg Tablet (1,000 Units) GT Not Given DAILY LEON Clonidine HCl 0.2 mg 01/05/25 14:46 01/05/25 16:20 Clonidine Hcl 0.2 Mg Patch TD Not Given Q7D LEON Finasteride 5 mg 01/06/25 10:00 01/06/25 11:36 Finasteride 5 Mg Tablet GT Not Given DAILY LEON Gabapentin 100 mg 01/06/25 10:00 01/06/25 11:36 Gabapentin 100 Mg Capsule GT Not Given DAILY LEON Hydralazine HCl 20 mg 01/05/25 13:49 01/06/25 12:06 Hydralazine 20 Mg/Ml Vial IV 20 mg Q4H PRN PRN Administration Hypertensive Emergency Protocol Hydralazine HCl 50 mg 01/05/25 22:00 01/06/25 14:28 Hydralazine 50 Mg Tablet GT Not Given TID LEON Protocol Sodium Chloride 1,000 mls @ 100 mls/hr 01/05/25 14:46 01/06/25 05:10 IV 01/06/25 20:45 100 mls/hr .Q10H LEON Administration Piperacillin Sod/Tazobactam 50 mls @ 12.5 mls/hr 01/05/25 22:00 01/06/25 14:28 Sod 3.375 gm/ Sodium Chloride IV 01/12/25 22:01 12.5 mls/hr Q8 LEON Administration Sodium Chloride 250 mls @ 15 mls/hr 01/05/25 15:14 IV .[id number] PRN Saline Flush Sodium Chloride 250 mls @ 15 mls/hr 01/05/25 15:14 IV .[id number] PRN Additional IVPB Infusion Sodium Chloride 1,000 mls @ 15 mls/hr 01/06/25 15:15 IV .Q48H LEON Losartan Potassium 100 mg 01/06/25 10:00 01/06/25 11:35 Losartan Potassium 100 Mg Tablet GT Not Given DAILY LEON Protocol Melatonin 3 mg 01/05/25 14:46 Melatonin 3 Mg Tablet GT QHS PRN PRN Insomnia Metoprolol Tartrate 50 mg 01/05/25 22:00 01/06/25 11:35 Metoprolol Tartrate 50 Mg Tablet GT Not Given BID LEON Protocol Mirtazapine 15 mg 01/05/25 22:00 01/05/25 19:50 Mirtazapine 15 Mg Tablet GT Not Given QHS LEON Ondansetron HCl 4 mg 01/05/25 14:46 Ondansetron 4 Mg/2 Ml Vial IV Q8H PRN PRN NAUSEA/VOMITING Prednisone 40 mg 01/06/25 08:00 01/06/25 07:27 Prednisone 20 Mg Tablet GT Not Given BREAKFAST LEON Sertraline HCl 100 mg 01/06/25 10:00 01/06/25 11:36 Sertraline 100 Mg Tablet GT Not Given DAILY LEON Sodium Chloride 10 - 40 ml 01/05/25 15:14 01/05/25 15:46 0.9% Saline Lock 10 Ml Syringe IV 10 ml UD PRN Administration SALINE FLUSH Thiamine HCl 100 mg 01/06/25 08:00 01/06/25 07:27 Thiamine Hydrochloride 100 Mg Tablet GT Not Given BREAKFAST [facility] Medical History Acute CVA (cerebrovascular accident) Aphasia Hypertension Weakness Debility Failure to thrive Compression fx, lumbar spine Hypertension Falls Hypertension Closed fracture of right superior pubic ramus Multiple falls Compression fracture of thoracic vertebra History of atrial fibrillation Iron deficiency anemia Chronic respiratory failure with hypoxia Osteoporosis Lumbar compression fracture Compression fracture Obstructive sleep apnea Hyperlipidemia Asthma Peripheral arterial occlusive disease Seizure disorder Chronic obstructive pulmonary disease Coronary artery disease Lupus anticoagulant disorder BPH (benign prostatic hyperplasia) Ulcerative colitis Peripheral vascular disease Anxiety COPD (chronic obstructive pulmonary disease) with emphysema Closed fracture of right inferior pubic ramus Acute UTI COPD (chronic obstructive pulmonary disease) UTI (urinary tract infection) Depression Diabetes Kidney stones Chronic pain Pancreatitis On home oxygen therapy Irregular heart beat Atrial fibrillation Stroke/cerebrovascular accident Smoker Falls frequently Seizures Sleep apnea COPD (chronic obstructive pulmonary disease) Asthma High cholesterol Tobacco abuse Home Medications ?Medication ?Instructions ?Recorded ?Last Taken ?Type atorvastatin 40 mg tablet 40 mg PO QHS Cholesterol 09/23/15 12/12/24 History alendronate 70 mg tablet 70 mg PO QWEEK OSTEOPROSIS #1 TAB 11/30/21 12/09/24 Rx acetaminophen 325 mg tablet 650 mg (2 x 325 mg) feeding tube 12/24/24 Unknown Rx Q6H PRN PRN Pain 1-10 Or Fever>100.7 #0 tabs albuterol sulfate 2.5 mg/3 mL 2.5 mg (3 mL) inhalation Q4H PRN 12/24/24 Unknown Rx (0.083 %) solution for nebulization DYSPNEA/WHEEZING/SOB #0 mL amlodipine 10 mg tablet 10 mg G-tube DAILY.RT #0 tabs 12/24/24 Unknown Rx carbamazepine 100 mg/5 mL oral 200 mg (10 mL) G-tube 4X/DAY #0 mL 12/24/24 Unknown Rx suspension cholecalciferol (vitamin D3) 50 50 mcg feeding tube DAILY 12/24/24 01/05/25 Rx mcg (2,000 unit) tablet SUPPLEMENT 30 days #30 tabs clonidine 0.2 mg/24 hr weekly 0.2 mg transdermal Q7D #0 ea 12/24/24 Unknown Rx transdermal patch ergocalciferol (vitamin D2) 1,250 1,250 mcg feeding tube Q7D 12/24/24 12/13/24 08:58 Rx mcg (50,000 unit) capsule (Vitamin SUPPLEMENT #0 caps D2) finasteride 5 mg tablet 5 mg feeding tube DAILY prostate 12/24/24 12/13/24 08:58 Rx 30 days #30 tabs gabapentin 100 mg capsule 100 mg feeding tube DAILY PAIN 30 12/24/24 12/13/24 08:58 Rx days #30 caps ipratropium 0.5 mg-albuterol 3 mg 3 ml inhalation .q6hwa #0 mL 12/24/24 Unknown Rx (2.5 mg base)/3 mL nebulization soln lactose-reduced food with fiber 55 ml feeding tube .18hours #5,688 12/24/24 Unknown Rx 0.06 gram-1.5 kcal/mL oral liquid mL (Jevity 1.5 Alex) losartan 100 mg tablet 100 mg feeding tube DAILY Blood 12/24/24 12/13/24 08:58 Rx pressure 30 days #30 tabs melatonin 3 mg tablet 3 mg G-tube QHS PRN PRN Insomnia 12/24/24 Unknown Rx #0 tabs mirtazapine 15 mg tablet 15 mg feeding tube QHS anti 12/24/24 12/12/24 20:59 Rx depressant 30 days #30 tabs prednisone 20 mg tablet 40 mg (2 x 20 mg) G-tube BREAKFAST 12/24/24 Unknown Rx 5 days #10 tabs sertraline 100 mg tablet 100 mg feeding tube DAILY 12/24/24 Unknown Rx DEPRESSION 30 days #30 tabs thiamine HCl (vitamin B1) 100 mg 100 mg G-tube BREAKFAST #0 tabs 12/24/24 Unknown Rx tablet apixaban 5 mg tablet (Eliquis) 5 mg PO BID 01/03/25 Unknown History atorvastatin 40 mg tablet (Lipitor) 40 mg PO DAILY 01/03/25 Unknown History hydralazine 25 mg tablet 50 mg G-tube 3XD 01/03/25 Unknown History metoprolol tartrate 25 mg tablet 50 mg feeding tube BID Blood 01/03/25 Unknown History pressure pantoprazole 40 mg granules 40 mg PO DAILY 01/03/25 Unknown History delayed-release for susp in packet (Protonix) Allergy/AdvReac Type Severity Reaction Status Date / Time No Known Allergies Allergy Verified 01/03/25 06:32 Family History Mother Heart disease CVA (cerebral vascular accident) Hypertension Father Heart disease CVA (cerebral vascular accident) Hypertension Surgical History S/P arterial stent History of appendectomy Social History household members: family 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
--- NOTE | 2025-01-06 16:53 | OP.EGD_ITS ---
Patient Name: Miles Sifuentes Procedure Date: 01/06/2025 2:33 PM Date of : 1950 Age: 74 Procedure: Upper GI endoscopy Indications: Dysphagia Providers: Paulino Henderson DO Medicines: Monitored Anesthesia Care Patient Profile: This is a 74 year old male. Refer to note in patient chart for documentation of history and physical. Patient has symptoms of dysphagia with both liquids and solids. Complications: No immediate complications. Procedure: Pre-Anesthesia Assessment: - Prior to the procedure, a History and Physical was performed, and patient medications and allergies were reviewed. The patient is competent. The risks and benefits of the procedure and the sedation options and risks were discussed with the patient. All questions were answered and informed consent was obtained. Patient identification and proposed procedure were verified by the physician in the pre-procedure area. Mental Status Examination: alert and oriented. Airway Examination: normal oropharyngeal airway and neck mobility. Respiratory Examination: clear to auscultation. CV Examination: normal. Prophylactic Antibiotics: The patient does not require prophylactic antibiotics. Prior Anticoagulants: The patient has taken no anticoagulant or antiplatelet agents. ASA Grade Assessment: II - A patient with mild systemic disease. After reviewing the risks and benefits, the patient was deemed in satisfactory condition to undergo the procedure. The anesthesia plan was to use monitored anesthesia care (MAC). Immediately prior to administration of medications, the patient was re-assessed for adequacy to receive sedatives. The heart rate, respiratory rate, oxygen saturations, blood pressure, adequacy of pulmonary ventilation, and response to care were monitored throughout the procedure. The physical status of the patient was re-assessed after the procedure. After obtaining informed consent, the endoscope was passed under direct vision. Throughout the procedure, the patient's blood pressure, pulse, and oxygen saturations were monitored continuously. The Endoscope was introduced through the mouth, and advanced to the second part of duodenum. The upper GI endoscopy was accomplished without difficulty. The patient tolerated the procedure well. Scope In: 4:32:02 PM Scope Out: 4:45:45 PM Total Procedure Duration Time 0 hours 13 minutes 43 seconds Findings: The examined esophagus was normal. Localized mild inflammation characterized by erythema was found in the gastric body. The patient was placed in the supine position for PEG placement. The stomach was insufflated to appose gastric and abdominal sandoval. A site was located in the body of the stomach with excellent transillumination for placement. The abdominal wall was marked and prepped in a sterile manner. The area was anesthetized with 1 mL of 0.5% lidocaine. The trocar needle was introduced through the abdominal wall and into the stomach under direct endoscopic view. A snare was introduced through the endoscope and opened in the gastric lumen. The guide wire was passed through the trocar and into the open snare. The snare was closed around the guide wire. The endoscope and snare were removed, pulling the wire out through the mouth. A skin incision was made at the site of needle insertion. The endoscopically removable 20 Fr EndoVive Safety gastrostomy tube was lubricated. The G-tube was tied to the guide wire and pulled through the mouth and into the stomach. The trocar needle was removed, and the gastrostomy tube was pulled out from the stomach through the skin. The external bumper was attached to the gastrostomy tube, and the tube was cut to remove the guide wire. The final position of the gastrostomy tube was confirmed by relook endoscopy, and skin marking noted to be 4 cm at the external bumper. The final tension and compression of the abdominal wall by the PEG tube and external bumper were checked and revealed that the bumper was loose and lightly touching the skin. The feeding tube was capped, and the tube site cleaned and dressed. The examined duodenum was normal. Impression: - Normal esophagus. - Chronic gastritis. - Normal examined duodenum. - An endoscopically removable PEG placement was successfully completed. - No specimens collected. Recommendation: - Discharge patient to home. - Resume previous diet. - Continue present medications. Procedure Code(s): --- Professional --- 34904, Esophagogastroduodenoscopy, flexible, transoral; with directed placement of percutaneous gastrostomy tube CPT copyright 2021 [employer]. All rights reserved. The codes documented in this report are preliminary and upon uptwist spinner review may be revised to meet current compliance requirements. Paulino Henderson DO 01/06/2025 4:53:35 PM This report has been signed electronically. Number of Addenda: 0 Note Initiated On: 01/06/2025 2:33 PM
--- NOTE | 2025-01-06 16:54 | OP.CCLET_ITS ---
01/06/2025 Lorraine Mena MD [address] [place] [address] [place] [address] Re : Upper GI endoscopy procedure for Miles Sifuentes Dear Dr. Mena This procedure was performed on Monday, January 06, 2025. My impressions and recommendations are as follows: Impressions : - Normal esophagus. - Chronic gastritis. - Normal examined duodenum. - An endoscopically removable PEG placement was successfully completed. - No specimens collected. Recommendations : - Discharge patient to home. - Resume previous diet. - Continue present medications. My findings are described in the full procedure note, which is enclosed. If I can be of further assistance, please feel free to contact me at . Sincerely, Paulino Henderson, 01/06/2025 4:53:35 PM This report has been signed electronically.
--- NOTE | 2025-01-06 16:58 | PCM.POST.ANE ---
Anesthesia: Postop Eval I Current Vital Signs Temperature: 97.8 F Pulse Rate: 115 Blood Pressure: 131/72 Respiratory Rate: 25 Pulse Ox: 100 Oxygen Delivery Method: Venturi Mask Oxygen Flow Rate (L/min): 8 Assessment Airway patent: Yes Spontaneous unlabored respirations: Yes Mental status: Awake and Calm nausea: No Vomiting: No Anesthesia Complication: No Fluid Hydration Crystalloid volume administer (ml): 100 Total IV fluid infused: 100 Progress Note Anesthesia document: Postop Eval 1 completed: Yes
--- NOTE | 2025-01-06 17:46 | CPS ---
Called to PACU to deep suction patient after PEG tube replacement. Patient coarse sounding and not able to swallow his secretions.
--- NOTE | 2025-01-06 17:55 | PCM.POSTANE2 ---
Anesthesia Postop Eval I Sum Postop Eval Completion status Anesthesia document: Postop Eval 1 completed: Yes Anesthesia Postop Eval I Summary Anesthesia Postop Eval I Summary: Anesthesia Postop Eval I: Assessment Summary Airway patent Yes 01/06/25 16:59 WEB [email or web address] Spontaneous unlabored Yes 01/06/25 16:59 WEB [email or web address] [email or web address] respirations Mental status Awake,Calm 01/06/25 16:59 WEB [email or web address] [email or web address] nausea No 01/06/25 16:59 WEB [email or web address] [email or web address] Vomiting No 01/06/25 16:59 WEB PRODUCTION [email or web address] Anesthesia Postop Eval I: Fluid Summary Crystalloid volume administer 100 01/06/25 16:59 WEB PRODUCTION [email or web address] (ml) Colloids volume administered ( ml) Blood Product volume administered (ml) Total IV fluid infused 100 01/06/25 16:59 WEB PRODUCTION [email or web address] Anesthesia Postop Eval I: Summary Notes Anesthesia Complication No 01/06/25 16:59 WEB PRODUCTION [email or web address] Anesthesia Complication Comment: Post-operative progress note Anesthesia: Postop Eval II Evaluation Mental status: Awake and Confused Pain Level: 1 nausea: No Vomiting: No Progress Note Post-operative progress note: Patient with significant upper respiratory noise secondary to patient inability to clear his secretions. (This was the original problem and why he is unable to swallow and eat food). Saturations slowly drifted to 91% even on 8 L nasal cannula. Respiratory was requested to do deep suctioning. The upper airway noise did improve. A simple facemask was applied and the saturations did improve to 97%. Dr. Guerin updated to patient's current conditions. Patient transferred back to PCU with oxygen.
[2025-01-06] MEDS: carBAMazepine 200 MG/10 ML UDC (WCH) GT ×2 (19:28→23:22)
[2025-01-06] MEDS: APIXABAN 5 MG TABLET GT (23:21)
[2025-01-07] VITALS (10 sets, daily range): BP systolic 107–163; BP diastolic 46–91; PULSE 55–78; RESP 16–23; TEMP 36.4–36.6; O2SAT 93–99; BMI 19.4
[2025-01-07] MEDS: Piperacil/Tazobactam 3.375 GM in 0.9% Normal Saline (50mL MB+) 50 ML IV ×3 (05:21→21:17)
[2025-01-07] MEDS: Cholecalciferol (VIT D3) 25 MCG TABLET (1,000 UNITS) 50 MCG GT (10:31)
[2025-01-07] MEDS: Thiamine Hydrochloride 100 MG Tablet GT (10:31)
[2025-01-07] MEDS: carBAMazepine 200 MG/10 ML UDC (WCH) GT ×4 (10:33→21:15)
--- NOTE | 2025-01-07 10:33 | CASEMGMT ---
RAMANA Rubalcava at [facility] called this SEYMOUR BOLES offering assistance for discharge planning. SEYMOUR BOLES updated Gini plan is to return to [facility]. Gini is available at [phone]. SEYMOUR BOLES updated SW.
[2025-01-07] MEDS: 0.9% Saline Lock 10 ML Syringe IV (11:17)
[2025-01-07] MEDS: APIXABAN 5 MG TABLET GT ×2 (11:31→21:16)
--- NOTE | 2025-01-07 13:05 | CASEMGMT ---
Discharge Planning Updates sent to [facility] with request to submit for precert. Jacquie Michaud DC Planning Asst.
[2025-01-07] MEDS: Jevity 1.5 1,000 ML 25 ML GT (15:15)
--- NOTE | 2025-01-07 17:39 | PCM.PN.BLA ---
Progress Note Patient had some respiratory distress after upper endoscopy yesterday. It was secondary to inability to swallow his own secretions. Physical Exam Const alert, no apparent distress and healthy appearing General Appearance: cooperative GI normal to inspection, nondistended, normoactive bowel sounds, soft to palpation, non-tender and non-distended Percussion: normal to percussion Rectal Exam: deferred Assessment & Plan Assessment/Plan (1) PEG tube malfunction: PLAN: 74-year-old with multiple comorbidities who recently pulled his PEG tube out. We will take him for endoscopy tomorrow for PEG tube replacement. His bowel return was explained alternatives, benefits, risk including understanding bleeding, infection, sepsis, perforation, need for more surgery and . He will have an ASA of 3. PLAN: Plan 01/07/2025-continue binder on patient's abdomen and hopefully he will not pull out his PEG tube again. Continue tube feedings up to goal. PEG tube okay to use for daily usage. Visit Charges Inpatient E&M: [id number] [facility] L[facility]
--- NOTE | 2025-01-07 19:44 | PCM.PN.HOSP ---
Reason for Visit Chief Complaint: Suspected PEG tomorrow found Subjective Subjective The date of this entry is 01/06/2025: Patient was seen and examined today, he underwent replacement of his PEG tube today and I received a call from anesthesia stating that he required oxygen via Ventimask but the patient would not keep the Ventimask on. I requested that the patient be placed on high flow nasal cannula oxygen and we will monitor him on PCU. Objective Data Objective Data Vital Signs: Vital Signs Temp Pulse Resp BP Pulse Ox O2 Del Method O2 Flow Rate 97.7 F L 78 20 H 107/46 L 97 Nasal Cannula 2 01/07/25 14:52 01/07/25 19:36 01/07/25 19:36 01/07/25 14:52 01/07/25 14:52 01/07/25 14:52 01/07/25 14:52 FiO2 35 01/06/25 15:50 Oxygen Flow Rate (L/min) 2 Oxygen Delivery Method Nasal Cannula Weight: 64.9 kg Body Mass Index (BMI) 19.4 Intake & Output: Intake and Output for Last 24 Hours 01/05/25 01/06/25 01/07/25 23:59 23:59 23:59 Intake Total 186.67 / 186.67 2060.21 / 2060.21 1100 / 1100 Output Total 100 / 100 950 / 1400 1050 / 1050 Balance 86.67 / 86.67 1110.21 / 660.21 50 / 50 Lab / Micro Data 01/06/25 02:30 01/06/25 02:30 Micro: Microbiology 01/05/25 14:09 Blood Culture (Wb) - Anticubital Left Blood Culture - Preliminary No growth in 48 hours. 01/05/25 14:09 Blood Culture (Wb) - Right Wrist Blood Culture - Preliminary No growth in 48 hours. 01/05/25 23:30 Sputum, Induced/Lukens Gram Stain - Final 01/05/25 23:30 Sputum, Induced/Lukens Respiratory Culture - Preliminary Gram negative holly 01/05/25 15:40 Mucosa - Nasopharyngeal Coronavirus COVID-19 PCR - Final 01/05/25 15:40 Mucosa - Nasopharyngeal Respiratory Panel (PCR) - Final 01/05/25 16:36 Urine, Clean Catch Legionella Antigen - Final 01/05/25 16:36 Urine, Clean Catch Streptococcus pneumoniae Antigen (M - Final Physical Exam Const alert and no apparent distress Constitutional Narrative: Patient has severe dysarthria General Appearance: cooperative, well kempt and well developed Orientation / Consciousness: awake HEENT normocephalic, head/scalp atraumatic and moist oral mucous membranes Eyes PERRL, EOMs intact bilaterally and conjunctivae normal Neck no JVD and thyroid normal General: trachea midline Resp normal respiratory effort, no retractions and no use of accessory muscles Resp Narrative: Expiratory rhonchi are noted anteriorly bilaterally Auscultation: rhonchi throughout; Negative for rales or wheezes Cardio regular rate, regular rhythm, S1 normal heart sound, S2 normal heart sound, no murmurs, no rub and no gallops GI normal to inspection, nondistended, normoactive bowel sounds, soft to palpation, non-tender and non-distended Extremity no clubbing, cyanosis or edema Skin no rashes or lesions noted General Skin Exam: no breakdown Neuro Neuro Narrative: Patient has dysarthria, there is noted to be right sided facial droop, patient has right-sided weakness Sensorium / Orientation: awake and alert Psych Psych Narrative: Patient has flat affect Assessment & Plan Assessment/Plan (1) CVA (cerebral vascular accident): PLAN: Plan 1. Aspiration pneumonia-patient will remain on his current antibiotic coverage #2 acute hypoxic respiratory failure-patient's pulse ox will be monitored #3 cerebrovascular disease with recent left MCA ischemic stroke-deficits include dysarthria, dysphagia, and right-sided weakness #4 paroxysmal atrial fibrillation #5 chronic obstructive pulmonary disease-patient will remain on aerosol treatment #6 dislodged PEG tube-this was replaced today by gastroenterology, tube feedings will most likely be restarted tomorrow Total clinical time spent by myself addressing the patient's medical issues, reviewing all of his data, and collaborating with the patient's care team: 35 minutes Charges/Coding Visit Charges Inpatient E&M: 76975 Subs Hosp L2
--- NOTE | 2025-01-07 19:52 | PCM.PN.HOSP ---
Reason for Visit Chief Complaint: Suspected PEG tomorrow found Subjective Subjective The date of this injury is 01/07/2025: Patient was seen and examined today, he is currently on 2 L of oxygen via nasal cannula, I restarted his tube feedings today, we are currently awaiting pre-CERT for him to return to a residential facility for rehab services. Objective Data Objective Data Vital Signs: Vital Signs Temp Pulse Resp BP Pulse Ox O2 Del Method O2 Flow Rate 97.7 F L 78 20 H 107/46 L 97 Nasal Cannula 2 01/07/25 14:52 01/07/25 19:36 01/07/25 19:36 01/07/25 14:52 01/07/25 14:52 01/07/25 14:52 01/07/25 14:52 FiO2 35 01/06/25 15:50 Oxygen Flow Rate (L/min) 2 Oxygen Delivery Method Nasal Cannula Weight: 64.9 kg Body Mass Index (BMI) 19.4 Intake & Output: Intake and Output for Last 24 Hours 01/05/25 01/06/25 01/07/25 23:59 23:59 23:59 Intake Total 186.67 / 186.67 2060.21 / 2060.21 1100 / 1100 Output Total 100 / 100 950 / 1400 1050 / 1050 Balance 86.67 / 86.67 1110.21 / 660.21 50 / 50 Lab / Micro Data 01/06/25 02:30 01/06/25 02:30 Micro: Microbiology 01/05/25 14:09 Blood Culture (Wb) - Anticubital Left Blood Culture - Preliminary No growth in 48 hours. 01/05/25 14:09 Blood Culture (Wb) - Right Wrist Blood Culture - Preliminary No growth in 48 hours. 01/05/25 23:30 Sputum, Induced/Lukens Gram Stain - Final 01/05/25 23:30 Sputum, Induced/Lukens Respiratory Culture - Preliminary Gram negative holly 01/05/25 15:40 Mucosa - Nasopharyngeal Coronavirus COVID-19 PCR - Final 01/05/25 15:40 Mucosa - Nasopharyngeal Respiratory Panel (PCR) - Final 01/05/25 16:36 Urine, Clean Catch Legionella Antigen - Final 01/05/25 16:36 Urine, Clean Catch Streptococcus pneumoniae Antigen (M - Final Physical Exam Narrative alert and no apparent distress Constitutional Narrative: Patient has severe dysarthria General Appearance: cooperative, well kempt and well developed Orientation / Consciousness: awake HEENT normocephalic, head/scalp atraumatic and moist oral mucous membranes Eyes PERRL, EOMs intact bilaterally and conjunctivae normal Neck no JVD and thyroid normal General: trachea midline Resp normal respiratory effort, no retractions and no use of accessory muscles Resp Narrative: Expiratory rhonchi are noted anteriorly bilaterally Auscultation: rhonchi throughout; Negative for rales or wheezes Cardio regular rate, regular rhythm, S1 normal heart sound, S2 normal heart sound, no murmurs, no rub and no gallops GI normal to inspection, nondistended, normoactive bowel sounds, soft to palpation, non-tender and non-distended Extremity no clubbing, cyanosis or edema Skin no rashes or lesions noted General Skin Exam: no breakdown Neuro Neuro Narrative: Patient has dysarthria, there is noted to be right sided facial droop, patient has right-sided weakness Sensorium / Orientation: awake and alert Psych Psych Narrative: Patient has flat affect Assessment & Plan Assessment/Plan (1) PEG tube malfunction: (2) CVA (cerebral vascular accident): PLAN: Plan 1. Aspiration pneumonia-patient will remain on his current antibiotic coverage #2 acute hypoxic respiratory failure-patient's pulse ox will be monitored, patient remains on nasal cannula oxygen #3 cerebrovascular disease with recent left MCA ischemic stroke-deficits include dysarthria, dysphagia, and right-sided weakness #4 paroxysmal atrial fibrillation #5 chronic obstructive pulmonary disease-patient will remain on aerosol treatment #6 dislodged PEG tube-this was replaced by gastroenterology, tube feedings restarted today Total clinical time spent by myself addressing the patient's medical issues, reviewing all of his data, and collaborating with the patient's care team: 35 minutes Charges/Coding Visit Charges Inpatient E&M: 43024 Subs Hosp L2
[2025-01-08] VITALS (10 sets, daily range): BP systolic 112–178; BP diastolic 54–63; PULSE 59–82; RESP 18–24; TEMP 36.4–36.6; O2SAT 91–99; BMI 19.8
[2025-01-08] MEDS: Piperacil/Tazobactam 3.375 GM in 0.9% Normal Saline (50mL MB+) 50 ML IV ×2 (05:28→15:05)
[2025-01-08] MEDS: carBAMazepine 200 MG/10 ML UDC (WCH) GT ×3 (11:54→18:13)
[2025-01-08] MEDS: APIXABAN 5 MG TABLET GT (11:55)
[2025-01-08] MEDS: Cholecalciferol (VIT D3) 25 MCG TABLET (1,000 UNITS) 50 MCG GT (11:56)
[2025-01-08] MEDS: Thiamine Hydrochloride 100 MG Tablet GT (15:07)
[2025-01-08] MEDS: Jevity 1.5 1,000 ML 55 ML GT (15:47)
[2025-01-08] MEDS: 0.9% Normal Saline (250mL Bag) 250 ML 15 ML IV (15:47)
[2025-01-08] MEDS: 0.9% Saline Lock 10 ML Syringe IV (15:47)
--- NOTE | 2025-01-08 15:53 | PCM.TXEXTCAR ---
Diet Diet Order/Speech Therapy: INPATIENT Hospital Diet / Speech Therapy Order(s) 01/06/25 00:01 Diet: Nothing Per Oral Routine Orders/Code Status Code Status: Full Code DC O2, CPAP, BIPAP needs Home O2 Discharge instructions: Yes Type of respiratory needs?: Oxygen Oxygen frequency: Continuous Continuous oxygen liters per minute: 2 L Wound(s) Abdomen: Wound Type: Surgical Incision Therapies Weight Bearing: Weight bearing as tolerated (with walker) Physical Therapy: Eval and Treat Occupational Therapy: Eval and Treat Speech Therapy: Eval and Treat Problem/Diagnosis (1) PEG tube malfunction: Status: Acute Code(s): K94.23 - Gastrostomy malfunction (2) CVA (cerebral vascular accident): Status: Acute Code(s): I63.9 - Cerebral infarction, unspecified Plan 1. Aspiration pneumonia-patient will remain on his current antibiotic coverage #2 acute hypoxic respiratory failure-patient's pulse ox will be monitored, patient remains on nasal cannula oxygen #3 cerebrovascular disease with recent left MCA ischemic stroke-deficits include dysarthria, dysphagia, and right-sided weakness #4 paroxysmal atrial fibrillation #5 chronic obstructive pulmonary disease-patient will remain on aerosol treatment #6 dislodged PEG tube-this was replaced by gastroenterology, tube feedings restarted today Total clinical time spent by myself addressing the patient's medical issues, reviewing all of his data, and collaborating with the patient's care team: 35 minutes Allergies/Procedures Done in Hospital Allergies No Known Allergies Allergy (Verified 01/03/25 06:32) Procedures: Peg tube placement Type of Care/Length of Stay Estimated LOS: Convalescent Care Less Than 30 days Type of Care Needed: Skilled Rehab Potential: Fair Prognosis: Fair Additional Orders/Day of Discharge H&P will serve as current which was dated: 01/05/25 Day of Discharge: 01/08/25 Dietary and Speech Recommendations Dietitian Recommendations/Changes: 1. Recommend advanced diet as tolerated to cardiac per [employer] recommendations. 2. Initiate via PEG: Jevity 1.5Cal goal rate 55ml/hr x 24 hours with 165ml water flushes every 4 hours to provide 1980 calories, 84g protein, and 1993ml total free water per day. Start at 25ml/hr and increase by 15ml every 8-12 until goal rate is achieved. 3. If running 18 hours per day is indicated recommend Jevity 1.5Cal at 70ml x 18 hours with 165ml water flushes to provide 1890 calories, 80g protein, and 1947ml total free water per day. 4. Will monitor weight and labs. Discharge Plan Admission Admit Date/Time: 01/05/25 13:36 Primary Reason for Your Visit: Aspiration pneumonia, dislodged PEG tube Attending Provider: Ryan Guerin Primary Care Provider: Lorraine Mena Consulting Providers: Frankie Galindo Discharge Orders/Prescriptions Prescriptions: New atorvastatin 40 mg Tablet 40 mg G-tube QHS Qty: 0 0RF prednisone 20 mg Tablet 40 mg G-tube BREAKFAST Qty: 0 0RF Eliquis 5 mg Tablet 5 mg G-tube BID Qty: 0 0RF lansoprazole [Prevacid] 30 mg capsule,delayed release(DR/EC) 30 mg feeding tube BID Qty: 1 0RF cefdinir 250 mg/5 mL suspension for reconstitution 300 mg feeding tube BID Qty: 60 0RF Rx Instructions: Give 6 mL twice daily down G-tube for a total of 14 doses Continued acetaminophen 325 mg Tablet 650 mg feeding tube Q6H PRN PRN (Reason: Pain 1-10 Or Fever>100.7) Qty: 0 0RF ipratropium-albuterol 0.5 mg-3 mg(2.5 mg base)/3 mL Solution For Nebulization 3 ml inhalation .q6hwa Qty: 0 0RF albuterol sulfate 2.5 mg /3 mL (0.083 %) Solution For Nebulization 2.5 mg inhalation Q4H PRN (Reason: DYSPNEA/WHEEZING/SOB) Qty: 0 0RF clonidine 0.2 mg/24 hr Patch Weekly 0.2 mg transdermal Q7D Qty: 0 0RF amlodipine 10 mg Tablet 10 mg G-tube DAILY.RT Qty: 0 0RF carbamazepine 100 mg/5 mL Suspension 200 mg G-tube 4X/DAY Qty: 0 0RF melatonin 3 mg Tablet 3 mg G-tube QHS PRN PRN (Reason: Insomnia) Qty: 0 0RF thiamine HCl (vitamin B1) 100 mg Tablet 100 mg G-tube BREAKFAST Qty: 0 0RF Jevity 1.5 Alex 0.06 gram-1.5 kcal/mL liquid 55 ml feeding tube .18hours Qty: 5688 0RF Rx Instructions: Goal TF: 55 ml/hr to run for 18 hours/day. Upon SNF transition goal is to achieve this and would plan to increase by 10 ml/hr every 8-12 hours until achieve the goal of 55 ml/hr for the 18 hour run daily. Flush 165 ml free water every 4 hours. sertraline 100 mg tablet 100 mg feeding tube DAILY 30 Days Qty: 30 0RF mirtazapine 15 MG tablet 15 mg feeding tube QHS 30 Days Qty: 30 0RF gabapentin 100 mg capsule 100 mg feeding tube DAILY 30 Days Qty: 30 0RF ergocalciferol (vitamin D2) [Vitamin D2] 1,250 mcg (50,000 unit) Capsule 1,250 mcg feeding tube Q7D Qty: 0 0RF losartan 100 mg tablet 100 mg feeding tube DAILY 30 Days Qty: 30 0RF finasteride 5 MG tablet 5 mg feeding tube DAILY 30 Days Qty: 30 0RF Patient Comments: prostate cholecalciferol (vitamin D3) 50 mcg (2,000 unit) tablet 50 mcg feeding tube DAILY 30 Days Qty: 30 0RF hydralazine 25 mg Tablet 50 mg G-tube 3XD metoprolol tartrate 25 mg tablet 50 mg feeding tube BID Discontinued atorvastatin 40 MG tablet 40 mg PO QHS Patient Comments: CHOLESTEROL alendronate 70 mg tablet 70 mg PO QWEEK Qty: 1 0RF prednisone 20 mg Tablet 40 mg G-tube BREAKFAST 5 Days Qty: 10 0RF atorvastatin [Lipitor] 40 mg tablet 40 mg PO DAILY Eliquis 5 mg tablet 5 mg PO BID pantoprazole [Protonix] [address] for susp in packet 40 mg PO DAILY Referrals / Follow Up: Lorraine Mena MD [Primary Care Provider] - Disposition Disposition (needs filled in before D/C Order can be placed): [facility]
--- NOTE | 2025-01-08 16:09 | PCM.DC.SUM ---
Providers Date of Admission: 01/05/25 Date of Discharge: 01/08/25 Primary Care Physician: Dr. Lorraine Mena MD Consultations 01/05/25 16:22 Consult: Gastroenterology Routine Consulting Provider: [facility] Reason for Consult: peg tube displacement EMERGENT Consult: No MD Notified: Yes Date Notified: 01/05/25 Time Notified: 16:30 Method of Notification: Text Reason For Visit: SUSPECTED ASPIRATION Diagnosis Discharge Diagnosis (1) PEG tube malfunction: Status: Inactive Code(s): K94.23 - Gastrostomy malfunction (2) CVA (cerebral vascular accident): Status: Inactive Code(s): I63.9 - Cerebral infarction, unspecified Plan 1. Aspiration pneumonia-patient will remain on his current antibiotic coverage #2 acute hypoxic respiratory failure-patient's pulse ox will be monitored, patient remains on nasal cannula oxygen #3 cerebrovascular disease with recent left MCA ischemic stroke-deficits include dysarthria, dysphagia, and right-sided weakness #4 paroxysmal atrial fibrillation #5 chronic obstructive pulmonary disease-patient will remain on aerosol treatment #6 dislodged PEG tube-this was replaced by gastroenterology, tube feedings restarted today Total clinical time spent by myself addressing the patient's medical issues, reviewing all of his data, and collaborating with the patient's care team: 35 minutes Medications at Discharge Home Medications acetaminophen 325 mg tablet 650 mg (2 x 325 mg) feeding tube Q6H PRN PRN Pain 1-10 Or Fever>100.7 #0 tabs 12/24/24 albuterol sulfate 2.5 mg/3 mL (0.083 %) solution for nebulization 2.5 mg (3 mL) inhalation Q4H PRN DYSPNEA/WHEEZING/SOB #0 mL 12/24/24 amlodipine 10 mg tablet 10 mg G-tube DAILY.RT #0 tabs 12/24/24 carbamazepine 100 mg/5 mL oral suspension 200 mg (10 mL) G-tube 4X/DAY #0 mL 12/24/24 cholecalciferol (vitamin D3) 50 mcg (2,000 unit) tablet 50 mcg feeding tube DAILY SUPPLEMENT 30 days #30 tabs 12/24/24 clonidine 0.2 mg/24 hr weekly transdermal patch 0.2 mg transdermal Q7D #0 ea 12/24/24 ergocalciferol (vitamin D2) 1,250 mcg (50,000 unit) capsule (Vitamin D2) 1,250 mcg feeding tube Q7D SUPPLEMENT #0 caps 12/24/24 finasteride 5 mg tablet 5 mg feeding tube DAILY prostate 30 days #30 tabs 12/24/24 gabapentin 100 mg capsule 100 mg feeding tube DAILY PAIN 30 days #30 caps 12/24/24 ipratropium 0.5 mg-albuterol 3 mg (2.5 mg base)/3 mL nebulization soln 3 ml inhalation .q6hwa #0 mL 12/24/24 lactose-reduced food with fiber 0.06 gram-1.5 kcal/mL oral liquid (Jevity 1.5 Alex) 55 ml feeding tube .18hours #5,688 mL 12/24/24 losartan 100 mg tablet 100 mg feeding tube DAILY Blood pressure 30 days #30 tabs 12/24/24 melatonin 3 mg tablet 3 mg G-tube QHS PRN PRN Insomnia #0 tabs 12/24/24 mirtazapine 15 mg tablet 15 mg feeding tube QHS anti depressant 30 days #30 tabs 12/24/24 sertraline 100 mg tablet 100 mg feeding tube DAILY DEPRESSION 30 days #30 tabs 12/24/24 thiamine HCl (vitamin B1) 100 mg tablet 100 mg G-tube BREAKFAST #0 tabs 12/24/24 hydralazine 25 mg tablet 50 mg G-tube 3XD 01/03/25 metoprolol tartrate 25 mg tablet 50 mg feeding tube BID Blood pressure 01/03/25 apixaban 5 mg tablet (Eliquis) 5 mg G-tube BID #0 tabs 01/08/25 atorvastatin 40 mg tablet 40 mg G-tube QHS #0 tabs 01/08/25 cefdinir 250 mg/5 mL oral suspension 300 mg (6 mL) feeding tube BID #60 mL 01/08/25 lansoprazole 30 mg capsule,delayed release (Prevacid) 30 mg feeding tube BID #1 cap 01/08/25 prednisone 20 mg tablet 40 mg (2 x 20 mg) G-tube BREAKFAST #0 tabs 01/08/25 Hospital Course Operations None Procedures Peg tube placement Summary of Care Provided Minutes Spent on Discharge: 31 Hospital Course: 74-year-old white male with a previous history of stroke and dysphagia with PEG tube was seen in the emergency room at [facility] from the nursing facility because of malfunctioning G-tube. Patient's blood pressure readings were also elevated. Patient's PEG tube was noted to be functioning properly however, he had tachypnea and rhonchi and a chest x-ray was performed showed COPD and no acute findings. KUB was obtained, the PEG tube was projected to be in the region of the stomach, contrast material was identified in the stomach and there was no extravasation of the contrast. While in the emergency room, patient became increasingly hypoxic necessitating being placed on a Ventimask and it was felt that the patient had aspiration pneumonia. Antibiotics were initiated and patient was admitted to PCU. While on PCU, patient pulled out his PEG tube and GI was consulted for reinsertion of the PEG tube. IV antibiotics were continued during his hospital stay and ultimately he was transferred back to the extended care facility on 01/08/2025, on that date, patient was seen and examined:alert and no apparent distress Constitutional Narrative: Patient has severe dysarthria General Appearance: cooperative, well kempt and well developed Orientation / Consciousness: awake HEENT normocephalic, head/scalp atraumatic and moist oral mucous membranes Eyes PERRL, EOMs intact bilaterally and conjunctivae normal Neck no JVD and thyroid normal General: trachea midline Resp normal respiratory effort, no retractions and no use of accessory muscles Resp Narrative: Expiratory rhonchi are noted anteriorly bilaterally Auscultation: rhonchi throughout; Negative for rales or wheezes Cardio regular rate, regular rhythm, S1 normal heart sound, S2 normal heart sound, no murmurs, no rub and no gallops GI normal to inspection, nondistended, normoactive bowel sounds, soft to palpation, non-tender and non-distended Extremity no clubbing, cyanosis or edema Skin no rashes or lesions noted General Skin Exam: no breakdown Neuro Neuro Narrative: Patient has dysarthria, there is noted to be right sided facial droop, patient has right-sided weakness Sensorium / Orientation: awake and alert Psych Psych Narrative: Patient has flat affect Patient appears stable for discharge back to his extended care facility on 01/08/2025 Weight / BMI Weight Weight: 66.4 kg Body Mass Index (BMI) 19.8 ABG / Lab / Microbiology Data 01/06/25 02:30 01/06/25 02:30 Microbiology: Microbiology 01/05/25 14:09 Blood Culture (Wb) - Right Wrist Blood Culture - Final No growth in 5 days. 01/05/25 14:09 Blood Culture (Wb) - Anticubital Left Blood Culture - Final No growth in 5 days. 01/05/25 23:30 Sputum, Induced/Lukens Gram Stain - Final 01/05/25 23:30 Sputum, Induced/Lukens Respiratory Culture - Final Proteus mirabilis 01/05/25 15:40 Mucosa - Nasopharyngeal Coronavirus COVID-19 PCR - Final 01/05/25 15:40 Mucosa - Nasopharyngeal Respiratory Panel (PCR) - Final 01/05/25 16:36 Urine, Clean Catch Legionella Antigen - Final 01/05/25 16:36 Urine, Clean Catch Streptococcus pneumoniae Antigen (M - Final D/C Instructions DC O2, CPAP, BIPAP Needs Home O2 Discharge instructions: Yes Type of respiratory needs?: Oxygen Oxygen frequency: Continuous Continuous oxygen liters per minute: 2 L DC home with Oxygen: Yes Home O2 MD Review: I have reviewed the oxygen testing, and the patient qualifies for home oxygen equipment and portability. The patient is mobile in the home and the community. Meaningful Use Info Meaningful Use Meaningful Use Diagnoses (Choose all that apply): None applicable Discharge Plan Admission Admit Date/Time: 01/05/25 13:36 Primary Reason for Your Visit: Aspiration pneumonia, dislodged PEG tube Attending Provider: Ryan Guerin Primary Care Provider: Lorraine Mena Consulting Providers: Frankie Galindo Discharge Orders/Prescriptions Prescriptions: New atorvastatin 40 mg Tablet 40 mg G-tube QHS Qty: 0 0RF prednisone 20 mg Tablet 40 mg G-tube BREAKFAST Qty: 0 0RF Eliquis 5 mg Tablet 5 mg G-tube BID Qty: 0 0RF lansoprazole [Prevacid] 30 mg capsule,delayed release(DR/EC) 30 mg feeding tube BID Qty: 1 0RF cefdinir 250 mg/5 mL suspension for reconstitution 300 mg feeding tube BID Qty: 60 0RF Rx Instructions: Give 6 mL twice daily down G-tube for a total of 14 doses Continued acetaminophen 325 mg Tablet 650 mg feeding tube Q6H PRN PRN (Reason: Pain 1-10 Or Fever>100.7) Qty: 0 0RF ipratropium-albuterol 0.5 mg-3 mg(2.5 mg base)/3 mL Solution For Nebulization 3 ml inhalation .q6hwa Qty: 0 0RF albuterol sulfate 2.5 mg /3 mL (0.083 %) Solution For Nebulization 2.5 mg inhalation Q4H PRN (Reason: DYSPNEA/WHEEZING/SOB) Qty: 0 0RF clonidine 0.2 mg/24 hr Patch Weekly 0.2 mg transdermal Q7D Qty: 0 0RF amlodipine 10 mg Tablet 10 mg G-tube DAILY.RT Qty: 0 0RF carbamazepine 100 mg/5 mL Suspension 200 mg G-tube 4X/DAY Qty: 0 0RF melatonin 3 mg Tablet 3 mg G-tube QHS PRN PRN (Reason: Insomnia) Qty: 0 0RF thiamine HCl (vitamin B1) 100 mg Tablet 100 mg G-tube BREAKFAST Qty: 0 0RF Jevity 1.5 Alex 0.06 gram-1.5 kcal/mL liquid 55 ml feeding tube .18hours Qty: 5688 0RF Rx Instructions: Goal TF: 55 ml/hr to run for 18 hours/day. Upon SNF transition goal is to achieve this and would plan to increase by 10 ml/hr every 8-12 hours until achieve the goal of 55 ml/hr for the 18 hour run daily. Flush 165 ml free water every 4 hours. sertraline 100 mg tablet 100 mg feeding tube DAILY 30 Days Qty: 30 0RF mirtazapine 15 MG tablet 15 mg feeding tube QHS 30 Days Qty: 30 0RF gabapentin 100 mg capsule 100 mg feeding tube DAILY 30 Days Qty: 30 0RF ergocalciferol (vitamin D2) [Vitamin D2] 1,250 mcg (50,000 unit) Capsule 1,250 mcg feeding tube Q7D Qty: 0 0RF losartan 100 mg tablet 100 mg feeding tube DAILY 30 Days Qty: 30 0RF finasteride 5 MG tablet 5 mg feeding tube DAILY 30 Days Qty: 30 0RF Patient Comments: prostate cholecalciferol (vitamin D3) 50 mcg (2,000 unit) tablet 50 mcg feeding tube DAILY 30 Days Qty: 30 0RF hydralazine 25 mg Tablet 50 mg G-tube 3XD metoprolol tartrate 25 mg tablet 50 mg feeding tube BID Discontinued atorvastatin 40 MG tablet 40 mg PO QHS Patient Comments: CHOLESTEROL alendronate 70 mg tablet 70 mg PO QWEEK Qty: 1 0RF prednisone 20 mg Tablet 40 mg G-tube BREAKFAST 5 Days Qty: 10 0RF atorvastatin [Lipitor] 40 mg tablet 40 mg PO DAILY Eliquis 5 mg tablet 5 mg PO BID pantoprazole [Protonix] [address] for susp in packet 40 mg PO DAILY Referrals / Follow Up: Lorraine Mena MD [Primary Care Provider] - Disposition Disposition (needs filled in before D/C Order can be placed): [facility] Charges/Coding Visit Charges Inpatient E&M: 46265 Disch Hosp >30min
--- NOTE | 2025-01-08 17:30 | CASEMGMT ---
Social Work Received notice via [facility] that insurance gave approval for admission back to [facility] although patient must arrive back to the facility today.? Will have to seek new pre-CERT if patient returns to the facility after 01/08/2025.? Updated Dr. Guerin who reports patient is ready for discharge. For continuity of care uploaded transfer to extended care & medication list into [facility] as well as fax to confirm fax number to the nursing facility. [facility] Pickup set for 7:45 PM.? [facility] notified. Updated nursing staff and called patient's ex-/power of contract attorney for healthcare Giovana Bhakta.? Nursing reports will update patient on time of discharge.? Next No other services requested or indicated. Plan: Discharged to [facility], skilled level of care under original hospital exemption from 12/26/2024.
--- NOTE | 2025-01-08 18:06 | NURSING ---
Called report to [facility] to MIKE Sheppard. No questions.
== END 2025-01-08 20:20 | disposition skilled nursing facility (03) | DRG 177 ==
LOC: ED 13:41 → PCU 13:45
PROVIDERS: Internal Medicine; Internal Medicine Gastroenterology; Admitting Provider Internal Medicine; Emergency Provider Emergency Medicine; PCP Internal Medicine; Visit Provider Internal Medicine
PROC: 0DJ08ZZ Inspection of Upper Intestinal Tract, Via Natural or Artificial Opening Endoscopic (ICD-10-PCS; CPT 43235; principal; 2025-01-06 15:55)
DX: J69.0 Pneumonitis due to inhalation of food and vomit (principal); J96.21 Acute and chronic respiratory failure with hypoxia; N13.8 Other obstructive and reflux uropathy; I69.351 Hemiplegia and hemiparesis following cerebral infarction affecting right dominant side; K94.23 Gastrostomy malfunction; I16.0 Hypertensive urgency; I69.320 Aphasia following cerebral infarction; F10.21 Alcohol dependence, in remission; D50.9 Iron deficiency anemia, unspecified; I69.322 Dysarthria following cerebral infarction; Z66 Do not resuscitate; G40.909 Epilepsy, unspecified, not intractable, without status epilepticus; I48.0 Paroxysmal atrial fibrillation; J44.9 Chronic obstructive pulmonary disease, unspecified; I73.9 Peripheral vascular disease, unspecified; I10 Essential (primary) hypertension; F41.8 Other specified anxiety disorders; E78.5 Hyperlipidemia, unspecified; K21.9 Gastro-esophageal reflux disease without esophagitis; G47.33 Obstructive sleep apnea (adult) (pediatric); I25.10 Atherosclerotic heart disease of native coronary artery without angina pectoris; J98.01 Acute bronchospasm; I69.391 Dysphagia following cerebral infarction; I69.392 Facial weakness following cerebral infarction; K29.50 Unspecified chronic gastritis without bleeding; R13.12 Dysphagia, oropharyngeal phase; M81.0 Age-related osteoporosis without current pathological fracture; N40.1 Benign prostatic hyperplasia with lower urinary tract symptoms; G89.29 Other chronic pain; Z95.5 Presence of coronary angioplasty implant and graft; Z90.49 Acquired absence of other specified parts of digestive tract; Z99.81 Dependence on supplemental oxygen; Z79.01 Long term (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 of anticoagulants; Z79.52 Long term (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 of systemic steroids; Z79.899 Other long term (current) drug therapy; Z87.898 Personal history of other specified conditions; Z91.199 Patient's noncompliance with other medical treatment and regimen due to unspecified reason; Z87.891 Personal history of nicotine dependence
CPT/HCPCS: 31720; 36415; 36600; 70450; 71045; 71046; 72125; 72170; 74018; 80048; 80053; 82803; 83605; 83735; 84100; 84484; 85025; 87040; 87070; 87077; 87186; 87205; 87449; 87633; 87635; 93005; 94640; 94762; 97110; 97162; 97166; 97530; 97802; 97803; 99252; 99285; A4216; G0463

== ENCOUNTER 2025-03-14 04:21 | Emergency (ER) | payer MEDICARE, MEDICAID, SELFPAY ==
[2025-03-14 04:23] VITALS: PULSE 60; RESP 18; TEMP 36.1; O2SAT 92; BMI 20.5
--- NOTE | 2025-03-14 04:59 | CT_ITS ---
PROCEDURE: BRAIN/HEAD WITHOUT CONTRAST 03/14/2025 REASON FOR EXAM: FALL TECHNIQUE: Procedure Code: CTBR Modality: CT Procedure: BRAIN/HEAD WITHOUT CONTRAST Coronal and Sagittal reconstruction series were provided. One or more dose reduction techniques were used (e.g., Automated exposure control, adjustment of the mA and/or kV according to patient size, use of iterative reconstruction technique. RADIATION DOSE SUMMARY: CTDlvol: 44.99 mGy DLP: 846.73 mGycm COMPARISON: 03-Jan-2025 FINDINGS: Suboptimal examination quality due to motion artifact. Left frontotemporal cortical and subcortical hypodense area of CSF like density with exvacudilataion of the overlying cortical sulci as well as the related aspect of the lateral ventricle. Accentuated bilateral cerebral periventricular white matter hypodensities denoting hypoperfusion with scattered periventricular and subcortical hypodense foci and patches. Bilateral basal ganglia and thalamic hypodense patches. Normal parenchymal attenuation of the brain stem and cerebellum. No intracerebral or extra axial hemorrhage No definite calvarial fractures. Dilated ventricular system, cortical sulci and extra-axial CSF spaces. No midline shifts or deformity. The osseous structures in the skull base are unremarkable. Paranasal sinuses show right maxillary sinusitis. Vascular atheromatous calcifications. CT/Brain/Head without Contrast IMPRESSION: No acute cerebrovascular insult. If clinical symptoms persist, further evaluati on with MRI may be considered as clinically warranted. No intracerebral or extra axial hemorrhage Left frontotemporal chronic infarct. Bilateral cerebral microvascular ischemic changes with brain involutional farr es. stable. [facility]
--- NOTE | 2025-03-14 04:59 | CT_ITS ---
PROCEDURE: SPINE CERVICAL WITHOUT CONTRAS 03/14/2025 REASON FOR EXAM: FALL TECHNIQUE: Procedure Code: CTSPC Modality: CT Procedure: SPINE CERVICAL WITHOUT CONTRAS Coronal and Sagittal reconstruction series were provided. One or more dose reduction techniques were used (e.g., Automated exposure control, adjustment of the mA and/or kV according to patient size, use of iterative reconstruction technique. RADIATION DOSE SUMMARY: CTDlvol: 16.69 mGy DLP: 336.53 mGycm COMPARISON: 03-Jan-2025 FINDINGS: Straightened cervical curve denoting myospasm. The examined vertebral bodies show no structural collapse or posterior neural elements fractures. Intact atlanto-axial interval. Degenerative changes of the atlanto-odontoid articulation with related capsular calcifications. Cervical spondylodegenerative changes evident by marginal osteophytic lipping and multilevel subchondral sclerosis of the examined vertebral end plates with multilevel disc spaces narrowing. Multilevel degenerative unco-vertebral arthropathy with osteophytes formation seen encroaching upon the corresponding neural exit foramina. Multilevel degenerative facet arthropathy. Multilevel diffuse disc bulges with posterior osteophytes and annular calcifications indenting the theca and encroaching upon the related neural exit foramina. No paraspinal masses. Carotid atheromatous calcifications. Bilateral upper lung lobes apical reticulations. CT/Spine Cervical without Contras IMPRESSION: Straightened cervical curve denoting myospasm. No vertebral fractures, structural collapse or dislocation. 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 No interval changes. Reading [facility]
--- OUTSIDE RECORDS SUMMARY | 2025-03-14 05:02 | XMS RPT_ITS | CCD ---
Author Organization [facility] Care Team Providers Care Character Actor Name Role Phone Daija Morton MD Primary Care Provider Madeline PANAMA HAT SMEARER, Beatriz Unavailable Unavailab johnson Morton MD, Daija Unavailable 13, Pharmacist Unavailable Artemio RN, Lizette Unavailable Dr. Daija Morton Primary Care Provider Dr. Jaden Toribio Referring Provider Dr. Jaden Toribio Other Provider Dr. Soto Trujillo Attending Provider Dr. Micky Damico Emergency Provider Dr. Cornelius Andrews Attending Provider [phone] Dr. Joi Osuna Referring Provider Dr. Dominguez [...] Unavailable Dr. Daija Morton Primary Care Provider Beatriz Correa CNP Unavailable Unavailab Daija Kilpatrick MD Unavailable Ye Coello MD Unavailable Shania DENISE, Emilie Smart Unavailable Ryan May MD Unavailable Carol GUTIERREZ Geronimo Daisha Unavailable Dr. Raul Melchor Emergency Provider Dr. [...] Provider Dr. Daija Morton Primary Care Provider Seleen RANDALL, Daija Primary Care Provider 13, Pharmacist Unavailable Raúl RANDALL, Kaye Lyon Unavailable Ye Coello MD Unavailable Emilie Jauregui PA-C Unavailable Ryan May MD Unavailable Geronimo Mdeina DO Unavailable Emilie Jauregui PA-C Unavailable Selene RANDALL, Daija Primary Care Provider 13, Pharmacist Unavailable Raúl RANDALL, Kaye Lyon Unavailable Ye Coello MD Unavailable Emilie Jauregui PA-C Unavailable Ryan May MD Unavailable Geronimo Medina DO Unavailable Daija Morton MD Primary Care Provider Emilie Jauregui PA-C Unavailable Ryan May MD Unavailable Geronimo Medina DO Unavailable Dr. Daija Morton Primary Care Provider Dr. Huber Alvarado Emergency Provider Dr. Fran Cartwright Admit Provider Chay, Dr. Peters Attending Provider Dr. Fran Cartwright Other Provider Dr. Celia Toribio Attending Provider Catarino, Dr. Yang Other Provider Dr. Frankie Galindo Attending Provider Unavailable Mateo, Other Provider Unavailable Oscar, Dr. Wallace Other Provider [phone] Geronimo Medina DO Unavailable Dr. Daija Morton Primary Care Provider Dr. Huber Alvarado Emergency Provider Chay, Dr. Peters Admit Provider Chay, Dr. Peters Attending Provider Chay, Dr. Peters Other Provider Dr. Celia Toribio Attending Provider Catarino, Dr. Yang Other Provider Dr. Frankie Galindo Attending Provider Unavailable Mateo, Other Provider Unavailable Dr. Elton Moore Other Provider SELENE RANDALL, DR DAIJA France Primary Care Unavailsayra MORTON MD, DR DAIJA Franec Attending Darby MORTON MD, DR DAIJA France [...] Attending Provider Dr. Андрей Cooley Admit Provider Yasir, Dr. Chiang Other Provider [...] Daija Primary Care Provider Madeline BELLO, Beatriz A Unavailable Daija Morton MD Unavailable Fco Franklin RN Unavailable Selene RANDALL, Dr. Choe Primary Care Provider Dr. Carla Prather MD Attending Provider Unavaila Dr. Jaden Norris MD Emergency Provider Dr. Lisha Talamantes DO Admit Provider Dr. Lisha Talamantes DO Attending Provider Dr. Jaden Jauregui MD Emergency Provider Dr. Lisha Talamantes DO Admit Provider Dr. Lisha Talamantes DO Attending Provider Albin GUTIERREZ, Dr. Husain Other Provider Dr. Celia Toribio MD Attending Provider Catarino RANDALL, Dr. Yang Other Provider Oscar RANDALL, Dr. Wallace Other Provider Caesar RANDALL, Dr. Skinner Attending Provider Caesar RANDALL, Dr. Skinner Other Provider Selene RANDALL, Dr. Choe Primary Care Provider Yamilka RANDALL, Dr. 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 Vizcaino Emergency Provider Ben RANDALL, Dr. Shilpa Ashton Admit Provider Ben RANDALL, Dr. Shilpa Ashton Attending Provider Ben RANDALL, Dr. Shilpa Ashton Other Provider Selene RANDALL, Dr. Choe Primary Care Provider Shania RANDALL, Dr. Stanley Emergency Provider Albin GUTIERREZ, Dr. Husain Admit Provider Dr. Lisha Talamantes DO Attending Provider Albin GUTIERREZ, Dr. Husain Other Provider Dr. Celia Toribio MD Attending [...] Provider Francheska GUTIERREZ, Dr. Ann Emergency Provider Jorge GUTIERREZ, Dr. Owens Admit Provider Jorge GUITERREZ, Dr. Owens Attending Provider Selene RANDALL, Dr. Choe Primary Care Provider Shania RANDALL, Dr. Stanley Emergency Provider Albin GUTIERREZ, Dr. Husain Admit Provider Albin GUTIERREZ, Dr. Husain Other Provider Catarino RANDALL, Dr. Yang Other Provider Catarino RADNALL, Dr. Yang Attending Provider Albin GUTIERREZ, Dr. Husain Attending Provider Jorge GUTIERREZ, Dr. Owens Other Provider Casandra RANDALL, Dr. Rose Attending Provider Jamel RANDALL, Ricardo Other Provider Unavailable Ja RANDALL, Dr. Horan Other Provider [phone] Amy Chun MD Other Provider Unavailable Dr. Mackenzie Guzmán DO Other Provider Jairo RANDALL, Dr. Bowens Other Provider [phone] Rolly RANDALL, Dr. Guzman Other Provider [phone] Kami Bolton MD Other Provider Dr. Marco Hutchinson MD Other Provider [phone] Dr. Noman Dumont MD Other Provider Sam RANDALL, Dr. Davis Other Provider Tamika Xiao MD Other Provider Connie RANDALL, Dr. Maxwell Other Provider Oskar RANDALL, Dr. Mao Other Provider [phone] Rowdy RANDALL, Dr. Merritt Other Provider Negrita RANDALL, Dr. Fanny Pina Other Provider Gildardo RANDALL, Dr. Ngo Other Provider Iraj RANDALL, Dr. Cervantes Other Provider Valery RANDALL, Dr. Saavedra Other Provider Albin RANDALL, Dr. Trejo Other Provider Unavailable Rubens RANDALL, Yousef Other Provider Unavailable Amira RANDALL, Chrystal Other Provider Lucien MS, Luan Other Provider Saul RANDALL, Jo Other Provider CELIA RANDALL, JOSETTE Other Provider Inez RANDALL, Angelo Other Provider Tanesha RANDALL, Neelam Other Provider Mikey RANDALL, Dr. Carter Attending Provider Santiago GUTIERREZ, Dr. Bob Attending Provider GANTA, DAIJA Primary Care Unavailable OLDER, ANJEL Referring Unavailable GANTA, DAIJA Primary Care Unavailable OLDER, ANJEL Attending Unavailable GANTA, DAIJA Primary Care Unavailable GANTA, DAIJA Primary Care Unavailable OLDER, ANJEL Referring Unavailable Selene RANDALL, Dr. Choe Primary Care Provider Albin GUTIERREZ, Dr. Husain Other Provider Lorraine Mena MD Attending Provider UnavailDr. Arnulfo Jang DO Emergency Provider Dr. Fco Monroy MD Emergency Provider [phone] Trina RANDALL, Dr. Peters Primary Care Provider Mateo RANDALL, Admit Provider Unavailable Mateo RANDALL, Attending Provider UnavailDr. Frankie Velazco MD Other Provider Unavailable Dr. Ryan Guerin DO Attending Provider [phone] Dr. Ryan Guerin DO Other Provider Dr. Lisah Talamantes DO Referring Provider Dr. Shilpa Contreras MD Referring Provider Lorraine Mena MD Referring Provider Unavailluis Zhao DO, Dr. Arredondo Attending Provider Dr. Geronimo Downey MD Attending Provider Retana DO, Referring Provider Mackenzie Iniguez Attending Provider Trina RANDALL, Dr. Peters Referring Provider Selene RANDALL, Dr. Choe Referring Provider Jo-Ann IT SECURITY CONSULTANT-CHannah Attending Provider Mateo RANDALL, Referring Provider Unavaila deandre Doss IT SECURITY CONSULTANT-CJosefa Attending Provider Trina RANDALL, Dr. Peters Primary Care Provider Trina RANDALL, Dr. Peters Attending Provider Trina RANDALL, Dr. Peters Primary Care Provider Romario IT SECURITY CONSULTANT-C, Josefa Attending Provider Selene RANDALL, Dr. Choe Primary Care Provider Yamilka RANDALL, Dr. Aguirre Attending Provider Unavailluis Guerin DO, Dr. Davis Referring Provider Adeli, Amir Consulting Unavailable Roman Patel Admitting Unavailable [facility] Primary Care Unavailable Shilpa Contreras Attending Unavailable Jairo, Gogo Consulting Unavailable Ryan Vargas Consulting Unavailable Tamika Xiao Consulting Unavailable Daylin Schmitt Consulting Unavailable Mostyanci Roman Consulting Unavailable Chrystal Collier Consulting Unavailable Luan Mcgraw Consulting Unavailable Jo Hughes Consulting Unavailable JOSETTE YANG Consulting Unavailable Angelo Wiley Consulting Unavailable Neelam Almendarez Consulting Unavailable Lisha Talamantes Consulting Unavailable Lisha Talamantes Attending Unavailable [facility] Primary Care Unavailable Shilpa Contreras Admitting Unavailable Shilpa Contreras Consulting Unavailable Lorraine Mena Primary Care Unavailable Frankie Galindo Admitting Unavailable Frankie Galindo Consulting Unavailable Frankie Galindo Attending Unavailable Raul Merino Attending Unavailable Ganta, Daija Primary Care Unavailable Caesar, Brody Admitting Unavailable Caesar, Brody Consulting Unavailable Koram, Kathi Vivian Consulting Unavailable Koram, Kathi Vivian Attending [facility]available [facility] Unavailable Caesar, Brody Admitting Unavailable Caesar, Brody Consulting Unavailable Koram, Kathi Vivian Consulting Unavailable JopperiRaul Attending Unavailable Ganta, Daija Primary Care Unavailable Caesar, Brody Admitting Unavailable Caesar, Brody Consulting Unavailable Koram, Kathi Vivian Consulting Unavailable Jocarmon Raul Consulting Unavailable Mostyanci Roman Consulting Unavailable Jorge, Roman Admitting Unavailable Roman Patel Attending Unavailable [facility] Primary Care Unavailable Oleghe OLS, Efewongbe Attending Unavailabl e Oleghe, Efewongbe Primary Care Unavailable [facility] Primary Care Unavailable Gudla Ming RAINthi Attending Unavailable Oleghe, Efewongbe Primary Care Unavailable Oleghe OLS, Efewongbe Referring Unavailabl e Oleghe OLS, Efewongbe Attending Unavailabl e Oleghe, Efewongbe Primary Care Unavailable Oleghe OLS, Efewongbe Referring Unavailabl e Oleghe OLS, Efewongbe Attending Unavailabl e Oleghe, Efewongbe Primary Care Unavailable Oleghe OLS, Efewongbe Attending Unavailabl e Oleghe, Efewongbe Primary Care Unavailable Oleghe OLS, Efewongbe Attending Unavailabl e Ganta, Daija Primary Care Unavailable Gudla Ming RAINthi Attending Unavailable Oleghe, Efewongbe Primary Care Unavailable Josefa Ramirez Attending Unavailable Oleghe, Efewongbe Primary Care Unavailable Oleghe OLS, Efewongbe Attending Unavailabl e Gudla KOFFI Carla Attending Unavailable Ganta, Daija Primary Care Unavailable [facility] Primary Care Unavailable Oleghe OLS, Efewongbe Attending Unavailabl e Ganta, Daija Primary Care Unavailable White, Shilpa L Attending Unavailable White, Shilpa L Admitting Unavailable White, Shilpa L Consulting Unavailable AlbinYayayn Attending Unavailable Ganta, Daija Primary Care Unavailable White, Shilpa L Admitting Unavailable White, Shilpa L Consulting Unavailable Albin, Lisha Consulting Unavailable Santiago, Paulino Attending Unavailable Frankie Galindo Referring Unavailable Albin, Lisha Consulting Unavailable AlbinLisha Attending Unavailable Albin, Lisha Admitting Unavailable Ganta, Daija Primary Care Unavailable Ryan Guerin Attending Unavailable Ryan Guerin Consulting Unavailable Ryan Guerin Referring Unavailable Oleghe, Efewongbe Primary Care Unavailable Romario WATERS, Josefa Attending Unavailable Oleghe, Efewongbe Primary Care Unavailable Oleghe, Efewongbe Referring Unavailable Mackenzie Dangelo Attending Unavailable Oleghe, Efewongbe Primary Care Unavailable Ganta, Daija Referring Unavailable Hannah Busch Attending Unavailable Celia Toribio Attending Unavailable Albin, Lisha Admitting Unavailable Ganta, Daija Primary Care Unavailable Lisha Talamantes Consulting Unavailable Elton Moore Consulting Unavailable Celia Toribio Consulting Unavailable Lisha Talamantes Referring Unavailable Roman Patel Admitting Unavailable Ganta, Daija Primary Care Unavailable Ricardo Mccullough Consulting Unavailable Paulino Henderson Attending Unavailable Aung Peres Consulting Unavailable Amy Chun [...] Contreras Consulting Unavailable Shilpa Contreras Attending Unavailable Shilpa Contreras L Referring Unavailable Romario WATERS, Josefa Attending Unavailable Oleghe, Efewongbe Primary Care Unavailable Lisha Talamantes Attending Unavailable Brody Maynard Attending Unavailable Brody Maynard Consulting Unavailable Celia Toribio Attending Unavailable Celia Toribio Consulting Unavailable Oleghe, Efewongbe Primary Care Unavailable Oleghe, Efewongbe Attending Unavailable Oleghe, Efewongbe Primary Care Unavailable Josefa Doss NP Attending Unavailable Oleghe, Efewongbe Primary Care Unavailable Ryan Guerin Attending Unavailable Frankie Galindo Admitting Unavailable Frankie Galindo Consulting Unavailable Ganta, Daija Primary Care Unavailable Carla Davis Attending Unavailable Oleghe, Efewongbe Primary Care Unavailable Oleghe OLS, Efewongbe Referring Unavailabl e Oleghe OLS, Efewongbe Attending Unavailabl e Oleghe, Efewongbe Primary Care Unavailable Oleghe OLS, Efewongbe Attending Unavailabl e Oleghe, Efewongbe Primary Care Unavailable Oleghe OLS, Efewongbe Attending Unavailabl e Ganta, Daija Primary Care Unavailable Carla Davis Attending Unavailable Lisha Talamantes Attending Unavailable Ricardo Mccullough Consulting Unavailable Roman Patel Admitting Unavailable Ganta, Daija Primary Care Unavailable Aung Peres Consulting Unavailable HindAmy ellison Consulting Unavailable Mackenzie Guzmán Consulting Unavailable Amanda Gillcia Consulting Unavailable Thomas Lofton Consulting Unavailable Kami [...] Patel Consulting Unavailable Lisha Talamantes Consulting Unavailable Arnulfo Zhao Attending Unavailable Ganta, Daija Primary Care Unavailable Brody Maynard Attending Unavailable Ganta, Daija Primary Care Unavailable Maxi Acevedo Attending Unavailable Ganta, Daija Primary Care Unavailable Milton Guajardo Attending Unavailable Lisha Talamantes Referring Unavailable Ganta, Daija Primary Care Unavailable Raul Jensen Attending Unavailable Oleghe, Efewongbe Primary Care Unavailable Frankie Retana Referring Unavailable Geronimo Downey Attending Unavailable Oleghe, Efewongbe Primary Care Unavailable Santiago, Paulino Attending Unavailable Frankie Galindo Referring Unavailable Ganta, Daija Primary Care Unavailable Oleghe OLS, Efewongbe Attending Unavailabl e Oleghe OLS, Efewongbe Referring Unavailsayra lyles SeleneDaija Primary Care Unavailable Lisha Talamantes Admitting Unavailable Lisha Talamantes Consulting Unavailable Brody Maynard Attending Unavailable Elton Moore Consulting Unavailable Celia Toribio Consulting Unavailable Medications Current Medications Medication Drug Class(es) [...] hours as needed for wheezing/shortness of breath. amLODIPine 10 mg oral tablet (20 sources) Dihydropyridine Calcium Channel Joel Start: 12-24-2024 Start: 10-25-2019 End: 10-08-2021 Start: 10-25-2019 End: 10-08-2021 Comment on above: Take 1 tablet by jorge th once daily. apixaban 5 mg oral tablet (20 sources) Factor Xa Inhibitor Start: 01-08-2025 Start: 01-03-2025 End: 01-08-2025 Start: 12-24-2024 End: 01-03-2025 atorvastatin 40 mg oral tabl et (20 sources) HMG-CoA Reductase Inhibitor Start: 01-08-2025 Start: 09-23-2015 End: 01-08-2025 Comment on above: Take 1 tablet by [...] 2021 5:03pm cholecalciferol 0.05 mg oral tablet (20 sources) Vitamin D Start: 08-22-2023 End: 12-24-2024 168 hr cloNIDine 0.57402 mg/ hr transdermal system (20 sources) Central [...] 5-alpha Reductase Inhibitor Start: 11-15-19 End: 12-25-19 Comment on above: Take 1 tablet by jorge th once daily. fluticasone / salmeterol (20 sources) Corticosteroid, beta2-Adrenergic Agonist Start: 03-05-20 take 1 dose by inhalation twice daily [...] (20 sources) Anti-epileptic Agent Start: 12-13-2024 End: 02-16-2025 Start: 12-13-2024 Start: 03-05-2016 gabapentin 600 mg [...] 02/01/2021 Discontinued take 1 capsule by mo [facility] three times daily gabapentin (NEURONTIN) 100 mg capsule Take 100 mg by mouth three times a day. Active Comment on above: Take 1 capsule in th e AM, 1 capsule midday and 2 capsules at bedtime hydrALAZINE hydrochloride 25 mg oral tablet (19 sources) Arteriolar Vasodilator Start: 12-25-2024 End: 01-03-2025 lansoprazole 30 mg delayed release oral capsule (17 sources) Proton Pump Inhibitor Start: 01-08-2025 Start: 12-24-2024 End: 01-03-2025 melatonin 3 mg oral tablet (10 sources) Start: 12-24-2024 MULTIVITAMIN ORAL (20 sources) take 1 tablet [...] cessory kit Nebulizer and Compressor For Neb (11 sources) Start: 12-12-2024 Nebulizer and Compressor For Neb Indications: Other emphysema (HCC) , Wheezing , On home oxygen therapy 1 each every 4 hours as needed. 1 each 12/12/2024 Active 24 hr nicotine 0.875 mg/hr transdermal system (20 sources) Cholinergic Nicotinic Agonist Start: 01-23-2025 Start: 12-16-2024 End: 12-24-2024 Start: 09-02-2024 End: [...] oral capsule (17 sources) Nitrofuran Antibacterial Start: 022 End: 022 take 1 capsule by mouth twice daily [...] Comment on above: Take 1 capsule by [facility] twice daily for 5 days. Take 1 capsule by [facility] twice daily with meals for 7 [...] Date: 10/27/22 Status: Ordered OXYGEN, HOME THERAPY, (11 sources) OXYGEN, HOME THE RAPY, 3 L/min by Nasal Cannula route as needed for wheezing/shortness of breath. Active perflutren lipid microspheres 1.3 mL in NaCl [...] mg oral tablet (20 sources) Start: 12-24-2024 End: 01-08-2025 Start: 12-16-2024 End: 12-24-2024 Start: 09-02-2024 End: [...] sources) Start: 11-21-2023 Walker (ULTRA- LIGHT ROLLATOR[place] [facility] [place]ications: Closed nondisplaced fracture of pelvis with routine healing, unspecified part of pelvis, subsequent encounter 1 Each once daily. 1 Each 11/21/2023 Active Start: 11-21-2023 Walker (ULTRA- LIGHT ROLLATOR) [facility] [place] Indications: Closed nondisplaced fracture of pelvis with [...] Apply to affected ar ea once daily. alendronic acid 70 mg oral tablet (20 sources) Bisphosphonate Start: 11-25-2021 End: 01-08-2025 Start: 11-25-2021 End: 11-30-2021 Alendronate Discontinued MG PO November 24, 2021 11:00pm November 30, 2021 10:39am Start: 10-19-2020 End: 10-21-2021 take 1 tablet by mouth every week alendronate (FOSAMAX) 70 mg tablet Take 1 tablet by mouth one time a week. 4 tablet 11 10/19/2020 08/13/2021 Discontinued Comment on above: Take 1 tablet by jorge th one time a week. Aluminum-Magnesium Hydroxide 225-200 mg/5 mL suspension (4 sources) Start: 4 End: 4 take 1 mL by mouth every four hours as needed Aluminum-Magnesium Hydroxide 225-200 mg/5 mL suspension Discontinued 30 mL PO EVERY 4 HOURS NEEDED August 22, 2023 1:00am April 10, 2024 11:34am aspirin 81 mg chewable tablet (20 sources) Platelet Aggregation Inhibitor, Nonsteroidal Anti-inflammatory Drug Start: 1 End: 2 Start: 11-01-2013 End: 12-15-2013 Comment on above: [...] Check bp 2 to 3x kal ly cefdinir 50 mg/ml oral suspension (7 sources) Cephalosporin Antibacterial Start: 01-08-2025 End: 01-23-2025 ciprofloxacin 500 mg oral tablet (20 sources) Quinolone Antimicrobial Start: 07-27-2013 End: 08-12-2013 clopidogrel 75 mg oral tablet (20 sources) P2Y12 Platelet Inhibitor Start: 10-25-2019 End: 12-24-2024 Comment on above: Take 1 tablet by jorge th once daily. COMPOUNDED PRESCRIPTION (20 sources) Start: 04-11-2018 End: 02-02-2022 COMPOUNDED PRESCRIPTION Indications: Pulmonary emphysema, unspecified emphysema type ([facility]) Aerosol supplies Dx:J44.1 NPI#[id number] 1 Each 2 04/11/2018 02/02/2022 Discontinued (Duplicate Entry) Start: 04-11-2018 End: 02-02-2022 COMPOUNDED PRESCRIPTION Tamela cations: Pulmonary emphysema, unspecified emphysema type ([facility]) NEBULIZER FOR HOME USE. DX: Emphysema, COPD 1 Each 3 04/11/2018 02/02/2022 Discontinued (Duplicate Entry) Start: 04-11-2018 COMPOUNDED PRE SCRIPTION Indications: Pulmonary emphysema, unspecified emphysema type (HCC) Aerosol supplies Dx:J44.1 NPI#[id number] 1 Each 2 04/11/2018 Active Start: 04-11-2018 COMPOUNDED PRE SCRIPTION Indications: Pulmonary emphysema, unspecified emphysema type (HCC) NEBULIZER FOR HOME USE. DX: Emphysema, COPD 1 Each 3 04/11/2018 Active Comment on above: Aerosol supplies Dx: J44.1 NPI#[id number] NEBULIZER FOR HOME U SE. DX: Emphysema, COPD 12 hr dextromethorphan hydrobromide 60 mg / guaiFENesin 1200 mg extended release oral tablet (20 sources) Uncompetitive U-niulxx-M-aspartate Receptor Antagonist, Sigma-1 Agonist Start: 09-02-2024 End: [...] Compression fracture of L2 vertebra, initial encounter ([facility]) Take 1 capsule by mouth once [...] Comment on above: Take 1 capsule by [facility] once daily as needed for Constipation. Take with pain medication docusate sodium 50 mg / sennosides, senior care 8.6 mg oral tablet (20 sources) Start: 04-04-2023 End: 12-24-2024 Start: 04-04-2023 [...] 06/25/18 Status: Ordered ertapenem 1000 mg injection (20 sources) Penem Antibacterial Start: 04-03-2023 End: 07-26-2023 [...] Corticosteroid, beta2-Adrenergic Agonist Start: 03-24-2020 End: 04-05-2021 ukwzpogsrhg-fxopyqatk-cb lanter (TRELEGY ELLIPTA) 100-62.5-25 mcg [The details [...] End: 12-07-2015 Start: 12-02-2015 End: 12-07-2015 Ipratropium Skillman (Atroven t (Sp)) 12.9 GM inhaler Discontinued 2 NMA INHALATION EVERY 6 HOURS December 02, 2015 12:00am December 07, 2015 10:01am Start: 12-02-2015 End: 12-07-2015 take 1 puff(s) by inhalation every six hours Ipratropium Skillman (Atrovent (Sp)) 12.9 GM inhaler Discontinued 2 [...] (20 sources) Aminosalicylate Start: 11-01-2013 End: 11-26-2013 metoprolol tartrate 25 mg oral tablet (20 sources) beta-Adrenergic Joel Start: 03-30-2023 End: 01-03-2025 Start: 02-28-2023 End: 01-23-2024 take 1 tablet by mouth twice daily metoprolol tartrate, short acting, (LOPRESSOR) 25 mg tablet Indications: Coronary artery disease involving [place] coronary artery of [place] heart without angina pectoris Take 1 tablet [...] by jorge th two times a day. metroNIDAZOLE 500 mg oral tablet (20 sources) [...] 10 days. oseltamivir 75 mg oral capsule (17 sources) Neuraminidase Inhibitor Start: 08-02-2023 End: 08-22-2023 [...] NEEDED as needed for Pain Score 4-10/10 October 25, 2019 12:00am November 15, 2019 3:14pm Start: 11-25-2013 End: 11-26-2013 Comment on above: Take 10 mg by mouth every 4 hours as needed for Pain. pantoprazole 40 mg oral gran ules (20 sources) Proton Pump Inhibitor Start: 01-03-2025 End: 01-08-2025 Start: 02-14-2020 End: 12-24-2024 Comment on above: Take 1 tablet by jorge th once daily. take one tablet by m outh every day sertraline 100 mg oral table t (20 [...] on above: Take 1 capsule by mo [facility] once daily. tiotropium 0.018 mg inhalati on powder (20 sources) Anticholinergic Start: 12-02-2015 End: 12-07-2015 Start: 12-02-2015 End: 12-07-2015 Tiotropium Skillman (Spiriva 18 Mcg) 1 PUFF inhaler Discontinued 1 NMA INHALATION DAILY December 02, 2015 12:00am December 07, 2015 10:02am Start: 12-02-2015 End: 12-07-2015 Start: 12-02-2015 End: 12-07-2015 take 1 puff(s) by inhalation once daily Tiotropium Skillman (Spiriva 18 Mcg) 1 PUFF inhaler Discontinued 1 PUFF INHALATION DAILY December 01, 2015 11:00pm December 07, 2015 9:02am Start: 01-26-2014 End: 09-29-2015 Start: 01-26-2014 End: 09-29-2015 take 1 puff(s) by inhalation once daily Tiotropium Skillman (Spiriva With Handihaler) 1 PUFF inhaler Discontinued 1 NMA INHALATION DAILY January 26, 2014 12:00am September 29, 2015 1:10pm Start: 01-26-2014 End: 09-29-2015 Start: 01-26-2014 End: 09-29-2015 take 1 puff(s) by inhalation once daily Tiotropium Skillman (Spiriva With Handihaler) 1 PUFF inhaler Discontinued [...] ing 09/13/2021 Take 2 tablets by mo [facility] once daily. As dosed based on PT/INR [The details of the medication are not available because there are pending changes by a home health clinician.] 12 mg every day or a s directed Take 1 tablet by jorge th once daily. With 5 MG- total 9 MG Problems Active Problems Problem Classification Problem Date Documented Da te Episodic/Chronic Abdominal pain (20 sources) Right upper quadrant pain; Translations: [Right upper quadrant pain] Onset: 4 Resolved: 3 09-13-2021 Episodic Acute cerebrovascular disease (20 sources) Cerebrovascular accident; Translations: [Cerebral infarction, unspecified] [...] Coronary arteriosclerosis; Translations: [Atherosclerotic heart disease of [place] coronary artery without angina pectoris] Onset: 3 [...] 4 09-13-2021 Chronic Fracture of lower limb (20 sources) Fracture of great toe ; Translations: [...] above: Chronic tamsulosin a nd finasteride Influenza (20 sources) Influenza due to Influenza A virus; [...] [Moderate protein-calorie malnutrition] Onset: 0 10-25-2019 Chronic Occlusion or stenosis of precerebral arteries (14 sources) Bilateral stenosis of carotid arteries; Translations: [Occlusion and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 Ledyroelisathao Christinebandaremi on 01-27-2025 Immature granulocytes/100 WBC (Bld) 0.600 % 0.0-0.9 [facility] LDL calc ser/plasOrdered By: roescott[place]thao Christinebandaremi on 01-27-2025 Cholesterol in LDL [Mass/Vol] 64 mg/dL [facility] MCV (mean corpuscular volume ) determinationOrdered By: roelisathao Christinebandaremi on 01-27-2025 MCV (RBC) [Entitic vol] 88.4 fL 80-94 [facility] Mean corpuscular hemoglobin (MCH) determinationOrdered By: roelorri Emmettbandaremi on 01-27-2025 MCH (RBC) [Entitic mass] 26.9 pg Low 27.0-32.0 [facility] Monocyte percentageOrdered B y: Ledyroelisathao Christinebandaremi on 01-27-2025 Monocytes/100 WBC (Bld) 7.6 % 0-10 [facility] Neutrophil percentageOrdered By: [facility] Emmett[facility] on 01-27-2025 Neutrophils/100 WBC (Bld) 75.8 % High 47-70 [facility] Platelet countOrdered By: Ledy ml Emmettbandaremi on 01-27-2025 Platelets (Bld) [#/Vol] 413 10*3/uL 150-450 [facility] Potassium measurement (mass/ volume)Ordered By: Ledyroelisathao Christinebandaremi on 01-27-2025 Potassium (Unsp spec) [Mass/Vol] 4.4 mmol/L 3.3-5.1 [facility] RBC Auto (Bld) [#/Vol]Ordere d By: Lorraine Mena on 01-27-2025 RBC (Bld) [#/Vol] 3.53 10*6/uL Low 4.6-6.2 [facility] Serum creatinine measurement (mass/volume)Ordered By: Lorraine Mena on 01-27-2025 Creatinine [Mass/Vol] 1.25 mg/dL High 0.70-1.20 [facility] Serum glucose measurement (m ass/volume)Ordered By: Lorraine Mena on 01-27-2025 Glucose [Mass/Vol] 86 mg/dL 70-99 [facility] Serum or plasma calcium luis urement (mass/volume)Ordered By: Lorraine Mena on 01-27-2025 Calcium [Mass/Vol] 9.5 mg/dL 7.6-11.0 [facility] Serum or plasma cholesterol in HDL measurement (mass/volume)Ordered By: Lorraine Mena on 01-27-2025 Cholesterol in HDL [Mass/Vol] 81 mg/dL >40 [facility] Serum or plasma cholesterol measurement (mass/volume)Ordered By: Lorraine Mena on 01-27-2025 Cholesterol [Mass/Vol] 161 mg/dL <201 [place] Serum or plasma urea nitroge n measurement (mass/volume)Ordered By: Lorraine Mena on 01-27-2025 Urea nitrogen [Mass/Vol] 29 mg/dL High 4-19 [facility] Sodium levelOrdered By: Roselyn gauthierdaphney Trina on 01-27-2025 Sodium [Moles/Vol] 135 mmol/L 133-145 [facility] White blood cell (WBC) count Ordered By: Lorraine Mena on 01-27-2025 WBC (Bld) [#/Vol] 7.3 10*3/uL 4.4-11.0 [facility] Absolute lymphocyte countOrd ered By: Lorraine Mena on 01-20-2025 Lymphocytes Auto (Unsp spec) [#/Vol] 0.97 10*3/uL 0.83-4.51 [facility] Anion gap in Serum or Plasma Ordered By: Lorraine Mena on 01-20-2025 Anion gap [Moles/Vol] 13 mmol/L 5-15 [facility] Automated lymphocyte count a s percentage of total leukocytesOrdered By: Lorraine Mena on 01-20-2025 Lymphocytes/100 WBC Auto (Unsp spec) 14.9 % Low 19-41 [facility] BUN/creatinine ratioOrdered By: Lorraine Mena on 01-20-2025 Urea nitrogen/Creatinine [Mass ratio] 20.4 mg/mg High 10-20 [facility] Basophil percentageOrdered B y: Lorraine Mena on 01-20-2025 Basophils/100 WBC (Bld) 0.6 % 0-1 [facility] Calculated very low density lipoprotein (VLDL) cholesterol measurementOrdered By: Lorraine Mena on 01-20-2025 Calculated very low density lipoprotein (VLDL) cholesterol measurement 16 mg/dL 5-40 [facility] Carbon dioxide, total [Moles /volume] in Central venous bloodOrdered By: Lorraine Mena on 01-20-2025 CO2 [Moles/Vol] 26.0 mmol/L 21.0-32.0 [facility] Chloride assayOrdered By: Ledy Mena on 01-20-2025 Chloride [Moles/Vol] 99 mmol/L 98-108 [facility] Eosinophil percentageOrdered By: Lorraine Mena on 01-20-2025 Eosinophils/100 WBC (Bld) 0.9 % 0-5 [facility] Erythrocyte distribution wid th ratioOrdered By: Lorraine Mena on 01-20-2025 Erythrocyte distribution width (RBC) [Ratio] 16.6 % High 11.6-14.6 [facility] Erythrocyte distribution wid th standard deviationOrdered By: Lorraine Mena on 01-20-2025 Erythrocyte distribution width (RBC) [Ratio] 54.0 fl High 35.1-43.9 [facility] Glomerular filtration rate ( GFR) estimation/1.73 sq m using serum, plasma, or whole bOrdered By: Lorraine Mena on 01-20-2025 GFR/1.73 sq M.predicted among non-blacks MDRD (S/P/Bld) [Vol rate/Area] 62 mL/min/{1.73_m2} >60 [facility] Hematocrit Auto (Bld) [Volum e fraction]Ordered By: Lorraine Mena on 01-20-2025 Hematocrit (Bld) [Volume fraction] 30.5 % Low 40-54 [facility] Hemoglobin measurementOrdere d By: Lorraine Mena on 01-20-2025 Hemoglobin (Bld) [Mass/Vol] 9.4 g/dL Low 13.0-16.5 [facility] Immature granulocytes/100 WB C Auto (Bld)Ordered By: Lorraine Mena on 01-20-2025 Immature granulocytes/100 WBC (Bld) 0.500 % 0.0-0.9 [facility] LDL calc ser/plasOrdered By: Roselynscottvillethao Mena on 01-20-2025 Cholesterol in LDL [Mass/Vol] 45 mg/dL [facility] MCV (mean corpuscular volume ) determinationOrdered By: ml Mena on 01-20-2025 MCV (RBC) [Entitic vol] 88.9 fL 80-94 [facility] Mean corpuscular hemoglobin (MCH) determinationOrdered By: roescottvillethao Mena on 01-20-2025 MCH (RBC) [Entitic mass] 27.4 pg 27.0-32.0 [facility] Monocyte percentageOrdered B y: Lorraine Mena on 01-20-2025 Monocytes/100 WBC (Bld) 8.2 % 0-10 [facility] Neutrophil percentageOrdered By: [facility] on 01-20-2025 Neutrophils/100 WBC (Bld) 74.9 % High 47-70 [facility] Platelet countOrdered By: Ledy Mena on 01-20-2025 Platelets (Bld) [#/Vol] 405 10*3/uL 150-450 [facility] Potassium measurement (mass/ volume)Ordered By: Lorraine Mena on 08-04-2025 Potassium (Unsp spec) [Mass/Vol] 3.7 mmol/L 3.3-5.1 [facility] RBC Auto (Bld) [#/Vol]Ordere d By: Lorraine Mena on 01-20-2025 RBC (Bld) [#/Vol] 3.43 10*6/uL Low 4.6-6.2 [facility] Serum creatinine measurement (mass/volume)Ordered By: Lorraine Mena on 01-20-2025 Creatinine [Mass/Vol] 1.21 mg/dL High 0.70-1.20 [facility] Serum glucose measurement (m ass/volume)Ordered By: Lorraine Mena on 01-20-2025 Glucose [Mass/Vol] 149 mg/dL High 70-99 [facility] Serum or plasma calcium luis urement (mass/volume)Ordered By: Lorraine Mena on 01-20-2025 Calcium [Mass/Vol] 9.4 mg/dL 7.6-11.0 [facility] Serum or plasma cholesterol in HDL measurement (mass/volume)Ordered By: Lorraine Mena on 01-20-2025 Cholesterol in HDL [Mass/Vol] 75 mg/dL >40 [facility] Serum or plasma cholesterol measurement (mass/volume)Ordered By: Lorraine Mena on 01-20-2025 Cholesterol [Mass/Vol] 136 mg/dL <201 [place] Serum or plasma urea nitroge n measurement (mass/volume)Ordered By: Lorraine Mena on 01-20-2025 Urea nitrogen [Mass/Vol] 25 mg/dL High 4-19 [facility] Sodium levelOrdered By: Roselyn Mena on 01-20-2025 Sodium [Moles/Vol] 137 mmol/L 133-145 [facility] White blood cell (WBC) count Ordered By: Lorraine Mena on 01-20-2025 WBC (Bld) [#/Vol] 6.5 10*3/uL 4.4-11.0 [facility] Absolute lymphocyte countOrd ered By: Lorraine Mena on 01-13-2025 Lymphocytes Auto (Unsp spec) [#/Vol] 0.97 10*3/uL 0.83-4.51 [facility] Anion gap in Serum or Plasma Ordered By: Lorraine Mena on 01-13-2025 Anion gap [Moles/Vol] 11 mmol/L 5-15 [facility] Automated lymphocyte count a s percentage of total leukocytesOrdered By: Lorraine Mena on 01-13-2025 Lymphocytes/100 WBC Auto (Unsp spec) 16.5 % Low 19-41 [facility] BUN/creatinine ratioOrdered By: Lorraine Mena on 01-13-2025 Urea nitrogen/Creatinine [Mass ratio] 17.7 mg/mg 10-20 [facility] Basophil percentageOrdered B y: Lorraine Mena on 01-13-2025 Basophils/100 WBC (Bld) 0.8 % 0-1 [facility] Calculated very low density lipoprotein (VLDL) cholesterol measurementOrdered By: Roselynscottvillethao Mena on 01-13-2025 Calculated very low density lipoprotein (VLDL) cholesterol measurement 34 mg/dL 5-40 [facility] Carbon dioxide, total [Moles /volume] in Central venous bloodOrdered By: Lorraine Mena on 01-13-2025 CO2 [Moles/Vol] 27.7 mmol/L 21.0-32.0 [facility] Chloride assayOrdered By: Ledy Mena on 01-13-2025 Chloride [Moles/Vol] 101 mmol/L 98-108 [facility] Eosinophil percentageOrdered By: Lorraine Mena on 01-13-2025 Eosinophils/100 WBC (Bld) 1.0 % 0-5 [facility] Erythrocyte distribution wid th ratioOrdered By: Lorraine Mena on 01-13-2025 Erythrocyte distribution width (RBC) [Ratio] 16.1 % High 11.6-14.6 [facility] Erythrocyte distribution wid th standard deviationOrdered By: Lorraine Mena on 01-13-2025 Erythrocyte distribution width (RBC) [Ratio] 51.1 fl High 35.1-43.9 [facility] Glomerular filtration rate ( GFR) estimation/1.73 sq m using serum, plasma, or whole bOrdered By: Lorraine Mena on 01-13-2025 GFR/1.73 sq M.predicted among non-blacks MDRD (S/P/Bld) [Vol rate/Area] 70 mL/min/{1.73_m2} >60 [facility] Hematocrit Auto (Bld) [Volum e fraction]Ordered By: Lorraine Mena on 01-13-2025 Hematocrit (Bld) [Volume fraction] 31.4 % Low 40-54 [facility] Hemoglobin measurementOrdere d By: Lorraine Mena on 01-13-2025 Hemoglobin (Bld) [Mass/Vol] 9.9 g/dL Low 13.0-16.5 [facility] Immature granulocytes/100 WB C Auto (Bld)Ordered By: Lorraine Mena on 01-13-2025 Immature granulocytes/100 WBC (Bld) 0.500 % 0.0-0.9 [facility] LDL calc ser/plasOrdered By: Lorraine Mena on 01-13-2025 Cholesterol in LDL [Mass/Vol] 51 mg/dL [facility] MCV (mean corpuscular volume ) determinationOrdered By: Lorraine Mena on 01-13-2025 MCV (RBC) [Entitic vol] 87.7 fL 80-94 [facility] Mean corpuscular hemoglobin (MCH) determinationOrdered By: roescott[place]thao Mena on 01-13-2025 MCH (RBC) [Entitic mass] 27.7 pg 27.0-32.0 [facility] Monocyte percentageOrdered B y: Lorraine Mena on 01-13-2025 Monocytes/100 WBC (Bld) 6.8 % 0-10 [facility] Neutrophil percentageOrdered By: ro[place]thao Mena on 01-13-2025 Neutrophils/100 WBC (Bld) 74.4 % High 47-70 [facility] Platelet countOrdered By: Ledy Mena on 01-13-2025 Platelets (Bld) [#/Vol] 421 10*3/uL 150-450 [facility] Potassium measurement (mass/ volume)Ordered By: Lorraine Mena on 01-13-2025 Potassium (Unsp spec) [Mass/Vol] 3.8 mmol/L 3.3-5.1 [facility] RBC Auto (Bld) [#/Vol]Ordere d By: Lorraine Mena on 01-13-2025 RBC (Bld) [#/Vol] 3.58 10*6/uL Low 4.6-6.2 [facility] Serum creatinine measurement (mass/volume)Ordered By: Lorraine Mena on 01-13-2025 Creatinine [Mass/Vol] 1.10 mg/dL 0.70-1.20 [facility] Serum glucose measurement (m ass/volume)Ordered By: Lorraine Mena on 01-13-2025 Glucose [Mass/Vol] 110 mg/dL High 70-99 [facility] Serum or plasma calcium luis urement (mass/volume)Ordered By: Lorraine Mena on 01-13-2025 Calcium [Mass/Vol] 9.2 mg/dL 7.6-11.0 [facility] Serum or plasma cholesterol in HDL measurement (mass/volume)Ordered By: Lorraine Mena on 01-13-2025 Cholesterol in HDL [Mass/Vol] 63 mg/dL >40 [facility] Serum or plasma cholesterol measurement (mass/volume)Ordered By: Lorraine Mena on 01-13-2025 Cholesterol [Mass/Vol] 147 mg/dL <201 [place] Serum or plasma urea nitroge n measurement (mass/volume)Ordered By: Lorraine Mena on 01-13-2025 Urea nitrogen [Mass/Vol] 20 mg/dL High 4-19 [facility] Sodium levelOrdered By: Roselyn villagomezemi Trina on 01-13-2025 Sodium [Moles/Vol] 140 mmol/L 133-145 [facility] White blood cell (WBC) count Ordered By: Lorraine Mena on 01-13-2025 WBC (Bld) [#/Vol] 5.9 10*3/uL 4.4-11.0 [facility] Electrocardiogram reportOrde red By: Geronimo Downey on 01-07-2025 EKG study [facility] Other Phone: Absolute lymphocyte countOrd ered By: Frankie Galindo on 01-06-2025 Lymphocytes Auto (Unsp spec) [#/Vol] 0.58 10*3/uL Low 0.83-4.51 [facility] Anion gap in Serum or Plasma Ordered By: Frankie Galindo on 01-06-2025 Anion gap [Moles/Vol] 12 mmol/L 5-15 [facility] Automated lymphocyte count a s percentage of total leukocytesOrdered By: Frankie Galindo on 01-06-2025 Lymphocytes/100 WBC Auto (Unsp spec) 4.8 % Low 19-41 [facility] BUN/creatinine ratioOrdered By: Frankie Galindo on 01-06-2025 Urea nitrogen/Creatinine [Mass ratio] 14.2 mg/mg 10-20 [facility] Basophil percentageOrdered B y: Frankie Galindo on 01-06-2025 Basophils/100 WBC (Bld) 0.2 % 0-1 [facility] Carbon dioxide, total [Moles /volume] in Central venous bloodOrdered By: Frankie Galindo on 01-06-2025 CO2 [Moles/Vol] 27.9 mmol/L 21.0-32.0 [facility] Chloride assayOrdered By: Osiel Galindo on 01-06-2025 Chloride [Moles/Vol] 98 mmol/L 98-108 [facility] Eosinophil percentageOrdered By: Frankie Galindo on 01-06-2025 Eosinophils/100 WBC (Bld) 0.1 % 0-5 [facility] Erythrocyte distribution wid th ratioOrdered By: Frankie Galindo on 01-06-2025 Erythrocyte distribution width (RBC) [Ratio] 15.3 % High 11.6-14.6 [facility] Erythrocyte distribution wid th standard deviationOrdered By: Frankie Galindo on 01-06-2025 Erythrocyte distribution width (RBC) [Ratio] 49.7 fl High 35.1-43.9 [facility] Glomerular filtration rate ( GFR) estimation/1.73 sq m using serum, plasma, or whole bOrdered By: Frankie Galindo on 01-06-2025 GFR/1.73 sq M.predicted among non-blacks MDRD (S/P/Bld) [Vol rate/Area] 52 mL/min/{1.73_m2} Low >60 [facility] Hematocrit Auto (Bld) [Volum e fraction]Ordered By: Frankie Galindo on 01-06-2025 Hematocrit (Bld) [Volume fraction] 35.8 % Low 40-54 [facility] Hemoglobin measurementOrdere d By: Frankie Galindo on 01-06-2025 Hemoglobin (Bld) [Mass/Vol] 11.2 g/dL Low 13.0-16.5 [facility] Immature granulocytes/100 WB C Auto (Bld)Ordered By: Frankie Galindo on 01-06-2025 Immature granulocytes/100 WBC (Bld) 0.300 % 0.0-0.9 [facility] MCV (mean corpuscular volume ) determinationOrdered By: Frankie Galindo on 01-06-2025 MCV (RBC) [Entitic vol] 88.8 fL 80-94 [facility] Magnesium measurement (mass/ volume)Ordered By: Frankie Galindo on 01-06-2025 Magnesium (Unsp spec) [Mass/Vol] 2.1 mg/dL 1.5-2.2 [facility] Mean corpuscular hemoglobin (MCH) determinationOrdered By: Frankie Galindo on 01-06-2025 MCH (RBC) [Entitic mass] 27.8 pg 27.0-32.0 [facility] Monocyte percentageOrdered B y: Frankie Galindo on 01-06-2025 Monocytes/100 WBC (Bld) 7.0 % 0-10 [facility] Neutrophil percentageOrdered By: Frankie Galindo on 01-06-2025 Neutrophils/100 WBC (Bld) 87.6 % High 47-70 [facility] Platelet countOrdered By: Osiel Galindo on 01-06-2025 Platelets (Bld) [#/Vol] 385 10*3/uL 150-450 [facility] Potassium measurement (mass/ volume)Ordered By: Frankie Galindo on 01-06-2025 Potassium (Unsp spec) [Mass/Vol] 4.9 mmol/L 3.3-5.1 [facility] RBC Auto (Bld) [#/Vol]Ordere d By: Frankie Galindo on 01-06-2025 RBC (Bld) [#/Vol] 4.03 10*6/uL Low 4.6-6.2 [facility] Serum creatinine measurement (mass/volume)Ordered By: Frankie Galindo on 01-06-2025 Creatinine [Mass/Vol] 1.41 mg/dL High 0.70-1.20 [facility] Serum glucose measurement (m ass/volume)Ordered By: Frankie Galindo on 01-06-2025 Glucose [Mass/Vol] 111 mg/dL High 70-99 [facility] Serum or plasma calcium luis urement (mass/volume)Ordered By: Frankie Galindo on 01-06-2025 Calcium [Mass/Vol] 9.3 mg/dL 7.6-11.0 [facility] Serum or plasma urea nitroge n measurement (mass/volume)Ordered By: Frankie Galindo on 01-06-2025 Urea nitrogen [Mass/Vol] 20 mg/dL High 4-19 [facility] Sodium levelOrdered By: Matthew Galindo on 01-06-2025 Sodium [Moles/Vol] 138 mmol/L 133-145 [facility] Troponin T.cardiac [Mass/vol ume] in Serum or Plasma by High sensitivity methodOrdered By: Frankie Yi on 01-06-2025 Troponin T.cardiac High sensitivity method [Mass/Vol] 26 ng/L High <22 [facility] Troponin T.cardiac High sensitivity method [Mass/Vol] 23 ng/L High <22 [facility] White blood cell (WBC) count Ordered By: Frankie Galindo on 01-06-2025 WBC (Bld) [#/Vol] 12.0 10*3/uL High 4.4-11.0 [facility] Abdomen Single View (Portabl e)on 01-05-2025 Abdomen Single View (Portable) Normal [facility] Absolute lymphocyte countOrd ered By: Fco Monroy on 01-05-2025 Lymphocytes Auto (Unsp spec) [#/Vol] 1.45 10*3/uL 0.83-4.51 [facility] Anion gap in Serum or Plasma Ordered By: Fco Monroy on 01-05-2025 Anion gap [Moles/Vol] 14 mmol/L 5-15 [facility] Assessment of wrist artery p atency prior to arterial punctureOrdered By: Fco Monroy on 01-05-2025 Arterial patency Wrist artery --pre arterial puncture Positive [facility] Automated lymphocyte count a s percentage of total leukocytesOrdered By: Fco Monroy on 01-05-2025 Lymphocytes/100 WBC Auto (Unsp spec) 14.2 % Low 19-41 [facility] BUN/creatinine ratioOrdered By: Fco Monroy on 01-05-2025 Urea nitrogen/Creatinine [Mass ratio] 18.8 mg/mg 10- [facility] Basophil percentageOrdered B y: Fco Monroy on 01-05-2025 Basophils/100 WBC (Bld) 0.4 % 0-1 [facility] Bilirubin, totalOrdered By: Fco Monroy on 01-05-2025 Bilirubin [Mass/Vol] 0.25 mg/dL 0.00-1.30 [facility] Blood Gases by CPSon 025 MAYURI TEST Positive Normal [facility] Comment on above: Performed By: #### L 9000.0800 ####[facility] [id number] [place], [address] Base excess Calc (Bld) [Moles/Vol] 9 mmol/L High -2 to +2 [facility] Comment on above: Performed By: #### L 9000.0800 ####[facility] [id number] [place], [address] Blood Gas Type ART Normal [facility] Comment on above: Performed By: #### L 9000.0800 ####[facility] [id number] [place], [address] CO2 [Moles/Vol] 35 mmol/L Normal [facility] Comment on above: Performed By: #### L 9000.0800 ####[facility] [id number] [place], [address] FI02 6.0 Normal [facility] Comment on above: Performed By: #### L 9000.0800 ####[facility] [id number] [place], [address] HCO3 (Bld) [Moles/Vol] 33.0 mmol/L High 22-26 [facility] Comment on above: Performed By: #### L 8999.08 ####[facility] [id number] [place], [address] Mode Not entered Normal [facility] Comment on above: Performed By: #### L 8999.08 ####[facility] [id number] [place], [address] O2 Delivery Dev Cannula Normal [facility] Comment on above: Performed By: #### L 8999.0800 ####[facility] [address] [place], [address] pCO2 47.9 mmHg High 35-45 [facility] Comment on above: Performed By: #### L 8999.08 ####[facility] [address] [place], [address] pH (Bld) 7.45 [pH] Normal 7.35-7.45 [facility] Comment on above: Performed By: #### L 8999.08 ####[facility] [address] [place], [address] PO2 52 mmHG Low 75-100 [facility] Comment on above: Performed By: #### L 8999.08 ####[facility] [address] [place], [address] SITE L Radial Normal [facility] Comment on above: Performed By: #### L 8999.08 ####[facility] [address] [place], [address] SO2 88 Low 95-99 [facility] Comment on above: Performed By: #### L 8999.0800 ####[facility] [address] [place], [address] Blood base excess determinat ionOrdered By: Fco Monroy on 01-05-2025 Base excess Calc (BldV) [Moles/Vol] 9 mmol/L High -2-2 [facility] Blood bicarbonate measuremen tOrdered By: Fco Monroy on 01-05-2025 HCO3 (Bld) [Moles/Vol] 33.0 mmol/L High 22-26 [facility] Blood cultureOrdered By: Sebastien Galindo on 01-05-2025 Bacteria identified Cx Nom (Bld) No growth in 5 days. [facility] CBC W/Diff, Automatedon 12-18 Absolute Lymph 1.45 X10 3/uL Normal 0.83-4.51 [facility] Comment on above: Performed By: #### L 500.4050, L100.0100, L503.6005 ####[facility] [address] [place], [address] Absolute Neut 7.8 X10 3/uL High 2.0-7.7 [facility] Comment on above: Performed By: #### L 500.4050, L100.0100, L503.6005 ####[facility] [address] [place], [address] Basophils/100 WBC (Bld) 0.4 % Normal 0-1 [facility] Comment on above: Performed By: #### L 500.4050, L100.0100, L503.6005 ####[facility] [address] [place], [address] Eosinophils/100 WBC (Bld) 1.2 % Normal 0-5 [facility] Comment on above: Performed By: #### L 500.4050, L100.0100, L503.6005 ####[facility] [address] [place], [address] Erythrocyte distribution width (RBC) [Ratio] 15.1 % High 11.6-14.6 [facility] Comment on above: Performed By: #### L 500.4050, L100.0100, L503.6005 ####[facility] [address] [place], [address] Hematocrit (Bld) [Volume fraction] 39.6 % Low 40-54 [facility] Comment on above: Performed By: #### L 500.4050, L100.0100, L503.6005 ####[facility] [address] [place], [address] Hemoglobin (Bld) [Mass/Vol] 12.6 g/dL Low 13.0-16.5 [facility] Comment on above: Performed By: #### L 500.4050, L100.0100, L503.6005 ####[facility] [address] [place], [address] IG% 0.500 Normal 0.0-0.9 [facility] Comment on above: Result Comment: IG% - Immature Granulocytes (promyelocytes, myelocytes andmetamyelocytes) > 1% indicates that a LEFT SHIFT is Present. Performed By: #### L 500.4050, L100.0100, L503.6005 ####[facility] [address] [place], [address] Lymphocytes/100 WBC (Bld) 14.2 % Low 19-41 [facility] Comment on above: Performed By: #### L 500.4050, L100.0100, L503.6005 ####[facility] [address] [place], [address] MCH (RBC) [Entitic mass] 27.8 pg Normal 27.0-32.0 [facility] Comment on above: Performed By: #### L 500.4050, L100.0100, L503.6005 ####[facility] [address] [place], [address] MCHC (RBC) [Mass/Vol] 31.8 g/dL Low 32-36 [facility] Comment on above: Performed By: #### L 500.4050, L100.0100, L503.6005 ####[facility] [address] [place], [address] MCV (RBC) [Entitic vol] 87.4 fL Normal 80-94 [facility] Comment on above: Performed By: #### L 500.4050, L100.0100, L503.6005 ####[facility] [address] [place], [address] Monocytes/100 WBC (Bld) 7.0 % Normal 0-10 [facility] Comment on above: Performed By: #### L 500.4050, L100.0100, L503.6005 ####[facility] [address] [place], [address] Neutrophils/100 WBC (Bld) 76.7 % High 47-70 [facility] Comment on above: Performed By: #### L 500.4050, L100.0100, L503.6005 ####[facility] [address] [place], [address] Nucleated RBC (Bld) [#/Vol] 0 10*3/uL Normal 0-5 [facility] Comment on above: Performed By: #### L 500.4050, L100.0100, L503.6005 ####[facility] [address] [place], [address] Platelet mean volume (Bld) [Entitic vol] 9.8 fL Normal 6.2-12.0 [facility] Comment on above: Performed By: #### L 500.4050, L100.0100, L503.6005 ####[facility] [address] [place], [address] Platelets (Bld) [#/Vol] 462 10*3/uL High 150-450 [facility] Comment on above: Performed By: #### L 500.4050, L100.0100, L503.6005 ####[facility] [address] [place], [address] RBC (Bld) [#/Vol] 4.53 10*6/uL Low 4.6-6.2 [facility] Comment on above: Performed By: #### L 500.4050, L100.0100, L503.6005 ####[facility] [address] [place], [address] RDW SD 48.0 fl High 35.1-43.9 [facility] Comment on above: Performed By: #### L 500.4050, L100.0100, L503.6005 ####[facility] [address] [place], [address] WBC (Bld) [#/Vol] 10.2 10*3/uL Normal 4.4-11.0 [facility] Comment on above: Performed By: #### L 500.4050, L100.0100, L503.6005 ####[facility] [address] [place], [address] Carbon dioxide, total [Moles /volume] in Central venous bloodOrdered By: Fco Monroy on 01-05-2025 CO2 [Moles/Vol] 28.4 mmol/L 21.0-32.0 [facility] Chest 1 View (Portable)on Chest 1 View (Portable) Normal [facility] Chloride assayOrdered By: Kellen Monroy on 01-05-2025 Chloride [Moles/Vol] 93 mmol/L Low 98-108 [facility] Comprehensive Metabolic Prof ilon 01-05-2025 Albumin [Mass/Vol] 4.6 g/dL Normal 3.4-4.8 [facility] Comment on above: Performed By: #### L 500.4050, L100.0100, L503.6005 ####[facility] [address] [place], [address] Albumin/Globulin [Mass ratio] 1.4 {ratio} Normal 0.9-2.4 [facility] Comment on above: Performed By: #### L 500.4050, L100.0100, L503.6005 ####[facility] [address] [place], [address] ALK PHOS 83 U/L Normal 40-129 [facility] Comment on above: Performed By: #### L 500.4050, L100.0100, L503.6005 ####[facility] [address] [place], [address] ALT [Catalytic activity/Vol] 33 U/L Normal <=46 [facility] Comment on above: Performed By: #### L 500.4050, L100.0100, L503.6005 ####[facility] [address] [place], [address] AST [Catalytic activity/Vol] 32 U/L Normal <=37 [facility] Comment on above: Result Comment: Hemo lysis present, Results??could be affected.?? Performed By: #### L 500.4050, L100.0100, L503.6005 ####[facility] [address] [place], [address] Bilirubin [Mass/Vol] 0.25 mg/dL Normal 0.00-1.30 [facility] Comment on above: Performed By: #### L 500.4050, L100.0100, L503.6005 ####[facility] [address] [place], [address] BUN/CRE 18.8 RATIO Normal 10-20 [facility] Comment on above: Performed By: #### L 500.4050, L100.0100, L503.6005 ####[facility] [address] [place], [address] Calcium [Mass/Vol] 10.3 mg/dL Normal 7.6-11.0 [facility] Comment on above: Performed By: #### L 500.4050, L100.0100, L503.6005 ####[facility] [address] [place], [address] Chloride [Moles/Vol] 93 mmol/L Low 98-108 [facility] Comment on above: Performed By: #### L 500.4050, L100.0100, L503.6005 ####[facility] [address] [place], [address] CO2 [Moles/Vol] 28.4 mmol/L Normal 21.0-32.0 [facility] Comment on above: Performed By: #### L 500.4050, L100.0100, L503.6005 ####[facility] [address] [place], [address] Creatinine [Mass/Vol] 1.25 mg/dL High 0.70-1.20 [facility] Comment on above: Performed By: #### L 500.4050, L100.0100, L503.6005 ####[facility] [address] [place], [address] ECRCL 54.46 ml/min Normal 50-250 [facility] Comment on above: Performed By: #### L 500.4050, L100.0100, L503.6005 ####[facility] [address] [place], [address] GAP 14 Normal 5-15 [facility] Comment on above: Performed By: #### L 500.4050, L100.0100, L503.6005 ####[facility] [address] [place], [address] GFR/1.73 sq M.predicted among non-blacks MDRD (S/P/Bld) [Vol rate/Area] 60 mL/min/{1.73_m2} Normal >60 [facility] Comment on above: Result Comment: mL/m in/1.73m2 CKD-EPI Creatinine Equation (2020) Performed By: #### L 500.4050, L100.0100, L503.6005 ####[facility] [address] [place], [address] Globulin (S) [Mass/Vol] 3.2 g/dL Normal 2.2-4.2 [facility] Comment on above: Performed By: #### L 500.4050, L100.0100, L503.6005 ####[facility] [address] [place], [address] Glucose [Mass/Vol] 123 mg/dL High 70-99 [facility] Comment on above: Performed By: #### L 500.4050, L100.0100, L503.6005 ####[facility] [address] [place], [address] Potassium [Moles/Vol] 4.3 mmol/L Normal 3.3-5.1 [facility] Comment on above: Result Comment: Hemo lysis present, Results??could be affected.?? Performed By: #### L 500.4050, L100.0100, L503.6005 ####[facility] [address] [place], [address] Sodium [Moles/Vol] 135 mmol/L Normal 133-145 [facility] Comment on above: Performed By: #### L 500.4050, L100.0100, L503.6005 ####[facility] [address] [place], [address] T PROT 7.8 g/dL Normal 5.9-8.4 [facility] Comment on above: Performed By: #### L 500.4050, L100.0100, L503.6005 ####[facility] [address] [place], [address] Urea nitrogen [Mass/Vol] 24 mg/dL High 4-19 [facility] Comment on above: Performed By: #### L 500.4050, L100.0100, L503.6005 ####[facility] [address] [place], [place], [address] Emergency Department Summary on 01-05-2025 Emergency Department Summary Normal [facility] Eosinophil percentageOrdered By: Fco Monroy on 01-05-2025 Eosinophils/100 WBC (Bld) 1.2 % 0-5 [facility] Erythrocyte distribution wid th ratioOrdered By: Fco Monroy on 01-05-2025 Erythrocyte distribution width (RBC) [Ratio] 15.1 % High 11.6-14.6 [facility] Erythrocyte distribution wid th standard deviationOrdered By: Fco Monroy on 01-05-2025 Erythrocyte distribution width (RBC) [Ratio] 48.0 fl High 35.1-43.9 [facility] Glomerular filtration rate ( GFR) estimation/1.73 sq m using serum, plasma, or whole bOrdered By: Fco Monroy on 01-05-2025 GFR/1.73 sq M.predicted among non-blacks MDRD (S/P/Bld) [Vol rate/Area] 60 mL/min/{1.73_m2} >60 [facility] Gram stainOrdered By: Frankie Galindo on 01-05-2025 Microscopic observation Gram stain Nom (Unsp spec) [facility] Hematocrit Auto (Bld) [Volum e fraction]Ordered By: Fco Monroy on 01-05-2025 Hematocrit (Bld) [Volume fraction] 39.6 % Low 40-54 [facility] Hemoglobin measurementOrdere d By: Fco Monroy on 01-05-2025 Hemoglobin (Bld) [Mass/Vol] 12.6 g/dL Low 13.0-16.5 [facility] Immature granulocytes/100 WB C Auto (Bld)Ordered By: Fco Monroy on 01-05-2025 Immature granulocytes/100 WBC (Bld) 0.500 % 0.0-0.9 [facility] Lactic Acidon 01-05-2025 Lactate [Moles/Vol] 1.1 mmol/L Normal 0.0-2.0 [facility] Comment on above: Order Comment: Y Performed By: #### L 500.4050, L100.0100, L503.6005 ####[facility] [address] [place], [address] MCV (mean corpuscular volume ) determinationOrdered By: Fco Monroy on 01-05-2025 MCV (RBC) [Entitic vol] 87.4 fL 80-94 [facility] Mean corpuscular hemoglobin (MCH) determinationOrdered By: Fco Monroy on 01-05-2025 MCH (RBC) [Entitic mass] 27.8 pg 27.0-32.0 [facility] Measurement, pHOrdered By: Tahira Monroy on 01-05-2025 pH (Unsp spec) 7.45 [pH] 7.35-7.45 [facility] Microbial respiratory cultur eOrdered By: Frankie Galindo on 01-05-2025 Microorganism identified Cx Nom (Unsp spec) Proteus mirabilis Abnormal [facility] Monocyte percentageOrdered B y: Fco Monroy on 01-05-2025 Monocytes/100 WBC (Bld) 7.0 % 0-10 [facility] Neutrophil percentageOrdered By: Fco Monroy on 01-05-2025 Neutrophils/100 WBC (Bld) 76.7 % High 47-70 [facility] No Panel InformationOrdered By: Fco Monroy on 01-05-2025 ART [facility] L Radial [facility] Not entered [facility] Cannula [facility] 32 U/L <38 [facility] Platelet countOrdered By: Kellen Monroy on 01-05-2025 Platelets (Bld) [#/Vol] 462 10*3/uL High 150-450 [facility] Potassium measurement (mass/ volume)Ordered By: Fco Monroy on 01-05-2025 Potassium (Unsp spec) [Mass/Vol] 4.3 mmol/L 3.3-5.1 [facility] RBC Auto (Bld) [#/Vol]Ordere d By: Fco Monroy on 01-05-2025 RBC (Bld) [#/Vol] 4.53 10*6/uL Low 4.6-6.2 [facility] Respiratory pathogens detect ion panel by molecular detection methodOrdered By: Frankie Galindo on 01-05-2025 Respiratory pathogens DNA and RNA panel ALEENA+probe (Resp) [facility] Nswo-rkf-2Hodrsoh By: Frankie Galindo on 01-05-2025 SARS-CoV-2 (COVID-19) RNA ALEENA+probe Ql (Unsp spec) [facility] Serum creatinine measurement (mass/volume)Ordered By: Fco Monroy on 01-05-2025 Creatinine [Mass/Vol] 1.25 mg/dL High 0.70-1.20 [facility] Serum globulin measurementOr dered By: Fco Monroy on 01-05-2025 Globulin (S) [Mass/Vol] 3.2 g/dL 2.2-4.2 [facility] Serum glucose measurement (m ass/volume)Ordered By: Fco Monroy on 01-05-2025 Glucose [Mass/Vol] 123 mg/dL High 70-99 [facility] Serum or plasma alanine saul otransferase (ALT) measurementOrdered By: Fco Monroy on 01-05-2025 ALT [Catalytic activity/Vol] 33 U/L <47 [facility] Serum or plasma albumin luis urement (mass/volume)Ordered By: Fco Monroy on 01-05-2025 Albumin [Mass/Vol] 4.6 g/dL 3.4-4.8 [facility] Serum or plasma albumin/glob ulin mass ratioOrdered By: Fco Monroy on 01-05-2025 Albumin/Globulin [Mass ratio] 1.4 {ratio} 0.9-2.4 [facility] Serum or plasma alkaline kathleen sphatase measurementOrdered By: cFo Monroy on 01-05-2025 ALP [Catalytic activity/Vol] 83 U/L 40-129 [facility] Serum or plasma calcium luis urement (mass/volume)Ordered By: Fco Monroy on 01-05-2025 Calcium [Mass/Vol] 10.3 mg/dL 7.6-11.0 [facility] Serum or plasma urea nitroge n measurement (mass/volume)Ordered By: Fco Monroy on 01-05-2025 Urea nitrogen [Mass/Vol] 24 mg/dL High 4-19 [facility] Sodium levelOrdered By: Fco Monroy on 01-05-2025 Sodium [Moles/Vol] 135 mmol/L 133-145 [facility] Total carbon dioxide measure mentOrdered By: Fco Monroy on 01-05-2025 CO2 [Moles/Vol] 35 mmol/L [facility] Total proteinOrdered By: Fco Monroy on 01-05-2025 Protein [Mass/Vol] 7.8 g/dL 5.9-8.4 [facility] Troponin T.cardiac [Mass/vol ume] in Serum or Plasma by High sensitivity methodOrdered By: Frankie Yi on 01-05-2025 Troponin T.cardiac High sensitivity method [Mass/Vol] 22 ng/L <22 [facility] Urine Legionella pneumophila antigen detectionOrdered By: Frankie Galindo on 01-05-2025 L. pneumophila Ag Ql (U) [facility] White blood cell (WBC) count Ordered By: Fco Monroy on 01-05-2025 WBC (Bld) [#/Vol] 10.2 10*3/uL 4.4-11.0 [facility] Abdomen Single View (Portabl e)on 01-03-2025 Abdomen Single View (Portable) Normal [facility] Brain/Head without Contrasto n 01-03-2025 Brain/Head without Contrast Normal [facility] Emergency Department Summary on 01-03-2025 Emergency Department Summary Normal [facility] Pelvis 1 or 2 Viewson 2024 Pelvis 1 or 2 Views Normal [facility] Spine Cervical without Contr ason 01-03-2025 Spine Cervical without Contras Normal [facility] Anion gap in Serum or Plasma Ordered By: Lorraine Mena on 12-31-2024 Anion gap [Moles/Vol] 12 mmol/L 10-31 [facility] BUN/creatinine ratioOrdered By: Lorraine Mena on 12-31-2024 Urea nitrogen/Creatinine [Mass ratio] 21.5 mg/mg High 10-20 [facility] Bilirubin, totalOrdered By: Lorraine Mena on 12-31-2024 Bilirubin [Mass/Vol] 0.17 mg/dL 0.00-1.30 [facility] Carbon dioxide, total [Moles /volume] in Central venous bloodOrdered By: Lorraine Mena on 12-31-2024 CO2 [Moles/Vol] 30.5 mmol/L 21.0-32.0 [facility] Chloride assayOrdered By: Ledy Mena on 12-31-2024 Chloride [Moles/Vol] 95 mmol/L Low 98-108 [facility] Glomerular filtration rate ( GFR) estimation/1.73 sq m using serum, plasma, or whole bOrdered By: Lorraine Mena on 12-31-2024 GFR/1.73 sq M.predicted among non-blacks MDRD (S/P/Bld) [Vol rate/Area] 64 mL/min/{1.73_m2} >60 [facility] No Panel InformationOrdered By: Lorraine Mena on 12-31-2024 34 U/L <38 [facility] Potassium measurement (mass/ volume)Ordered By: Lorraine Mena 12-31-2024 Potassium (Unsp spec) [Mass/Vol] 3.9 mmol/L 3.3-5.1 [facility] Serum creatinine measurement (mass/volume)Ordered By: Lorraine Mena on 12-31-2024 Creatinine [Mass/Vol] 1.19 mg/dL 0.70-1.20 [facility] Serum globulin measurementOr dered By: Lorraine Mena on 12-31-2024 Globulin (S) [Mass/Vol] 2.9 g/dL 2.2-4.2 [facility] Serum glucose measurement (m ass/volume)Ordered By: Lorraine Mena 12-31-2024 Glucose [Mass/Vol] 110 mg/dL High 70-99 [facility] Serum or plasma alanine saul otransferase (ALT) measurementOrdered By: Lorraine Mena on 12-31-2024 ALT [Catalytic activity/Vol] 35 U/L <47 [facility] Serum or plasma albumin luis urement (mass/volume)Ordered By: Lorraine Mena on 12-31-2024 Albumin [Mass/Vol] 3.9 g/dL 3.4-4.8 [facility] Serum or plasma albumin/glob ulin mass ratioOrdered By: Lorraine Mena on 12-31-2024 Albumin/Globulin [Mass ratio] 1.3 {ratio} 0.9-2.4 [facility] Serum or plasma alkaline kathleen sphatase measurementOrdered By: Lorraine Mena on 12-31-2024 ALP [Catalytic activity/Vol] 63 U/L 40-129 [facility] Serum or plasma calcium luis urement (mass/volume)Ordered By: Lorraine Mena 12-31-2024 Calcium [Mass/Vol] 10.1 mg/dL 7.6-11.0 [facility] Serum or plasma urea nitroge n measurement (mass/volume)Ordered By: Lorraine Mena on 12-31-2024 Urea nitrogen [Mass/Vol] 26 mg/dL High 4-19 [facility] Sodium levelOrdered By: Roselyn gauthierdaphney Trina on 12-31-2024 Sodium [Moles/Vol] 138 mmol/L 133-145 [facility] Total proteinOrdered By: David jayathao Mena on 12-31-2024 Protein [Mass/Vol] 6.9 g/dL 5.9-8.4 [facility] Absolute lymphocyte countOrd ered By: Lorraine Mena on 12-30-2024 Lymphocytes Auto (Unsp spec) [#/Vol] 1.08 10*3/uL 0.83-4.51 [facility] Anion gap in Serum or Plasma Ordered By: Lorraine Mena on 12-30-2024 Anion gap [Moles/Vol] 17 mmol/L High 5-15 [facility] Automated lymphocyte count a s percentage of total leukocytesOrdered By: Lorraine Mena on 12-30-2024 Lymphocytes/100 WBC Auto (Unsp spec) 14.4 % Low 19-41 [facility] BUN/creatinine ratioOrdered By: Lorraine Mnea on 12-30-2024 Urea nitrogen/Creatinine [Mass ratio] 20.3 mg/mg High 10-20 [facility] Basophil percentageOrdered B y: Lorraine Mena on 12-30-2024 Basophils/100 WBC (Bld) 0.7 % 0-1 [facility] Bilirubin, totalOrdered By: Ledyroelorri Emmettbadnaremi on 12-30-2024 Bilirubin [Mass/Vol] 0.18 mg/dL 0.00-1.30 [facility] Carbon dioxide, total [Moles /volume] in Central venous bloodOrdered By: Ledyml Christinebandaremi on 12-30-2024 CO2 [Moles/Vol] 28.7 mmol/L 21.0-32.0 [facility] Chloride assayOrdered By: Ledy ml Emmettbandaremi on 12-30-2024 Chloride [Moles/Vol] 94 mmol/L Low 98-108 [facility] Eosinophil percentageOrdered By: Lorraine Mena on 12-30-2024 Eosinophils/100 WBC (Bld) 0.8 % 0-5 [facility] Erythrocyte distribution wid th ratioOrdered By: Ledyroelorri Emmettbandaremi on 12-30-2024 Erythrocyte distribution width (RBC) [Ratio] 15.0 % High 11.6-14.6 [facility] Erythrocyte distribution wid th standard deviationOrdered By: Roselynlisathao Christinebandaremi on 12-30-2024 Erythrocyte distribution width (RBC) [Ratio] 47.7 fl High 35.1-43.9 [facility] Glomerular filtration rate ( GFR) estimation/1.73 sq m using serum, plasma, or whole bOrdered By: Ledyroelisathao Christinebandaremi on 12-30-2024 GFR/1.73 sq M.predicted among non-blacks MDRD (S/P/Bld) [Vol rate/Area] 64 mL/min/{1.73_m2} >60 [facility] Hematocrit Auto (Bld) [Volum e fraction]Ordered By: Lorraine Christinebandaremi on 12-30-2024 Hematocrit (Bld) [Volume fraction] 36.1 % Low 40-54 [facility] Hemoglobin measurementOrdere d By: Lorraine Mena on 12-30-2024 Hemoglobin (Bld) [Mass/Vol] 11.3 g/dL Low 13.0-16.5 [facility] Immature granulocytes/100 WB C Auto (Bld)Ordered By: Lorraine Mena on 12-30-2024 Immature granulocytes/100 WBC (Bld) 0.300 % 0.0-0.9 [facility] MCV (mean corpuscular volume ) determinationOrdered By: Lorraine Mena on 12-30-2024 MCV (RBC) [Entitic vol] 88.3 fL 80-94 [facility] Mean corpuscular hemoglobin (MCH) determinationOrdered By: Lorraine Mena on 12-30-2024 MCH (RBC) [Entitic mass] 27.6 pg 27.0-32.0 [facility] Monocyte percentageOrdered B y: Lorraine Mena on 12-30-2024 Monocytes/100 WBC (Bld) 9.6 % 0-10 [facility] Neutrophil percentageOrdered By: roescottvillethao Mena on 12-30-2024 Neutrophils/100 WBC (Bld) 74.2 % High 47-70 [facility] No Panel InformationOrdered By: Lorraine Mena on 12-30-2024 34 U/L <38 [facility] Platelet countOrdered By: Ledy roelorri Mena on 12-30-2024 Platelets (Bld) [#/Vol] 353 10*3/uL 150-450 [facility] Potassium measurement (mass/ volume)Ordered By: Lorraine Mena on 12-30-2024 Potassium (Unsp spec) [Mass/Vol] 4.2 mmol/L 3.3-5.1 [facility] RBC Auto (Bld) [#/Vol]Ordere d By: Lorraine Mena on 12-30-2024 RBC (Bld) [#/Vol] 4.09 10*6/uL Low 4.6-6.2 [facility] Serum creatinine measurement (mass/volume)Ordered By: Lorraine Mena on 12-30-2024 Creatinine [Mass/Vol] 1.19 mg/dL 0.70-1.20 [facility] Serum globulin measurementOr dered By: Lorraine Mena on 12-30-2024 Globulin (S) [Mass/Vol] 2.2 g/dL 2.2-4.2 [facility] Serum glucose measurement (m ass/volume)Ordered By: Lorraine Mena on 12-30-2024 Glucose [Mass/Vol] 105 mg/dL High 70-99 [facility] Serum or plasma alanine saul otransferase (ALT) measurementOrdered By: Lorraine Mena on 12-30-2024 ALT [Catalytic activity/Vol] 34 U/L <47 [facility] Serum or plasma albumin luis urement (mass/volume)Ordered By: Lorraine Mena on 12-30-2024 Albumin [Mass/Vol] 4.0 g/dL 3.4-4.8 [facility] Serum or plasma albumin/glob ulin mass ratioOrdered By: Lorraine Mena on 12-30-2024 Albumin/Globulin [Mass ratio] 1.8 {ratio} 0.9-2.4 [facility] Serum or plasma alkaline kathleen sphatase measurementOrdered By: Lorraine Mena on 12-30-2024 ALP [Catalytic activity/Vol] 62 U/L 40-129 [facility] Serum or plasma calcium luis urement (mass/volume)Ordered By: Lorraine Mena on 12-30-2024 Calcium [Mass/Vol] 9.8 mg/dL 7.6-11.0 [facility] Serum or plasma carbamazepin e level (mass/volume)Ordered By: Lorraine Mena on 12-30-2024 carBAMazepine [Mass/Vol] 10.8 ug/mL 4.0-12.0 [facility] Serum or plasma urea nitroge n measurement (mass/volume)Ordered By: Lorraine Mena on 12-30-2024 Urea nitrogen [Mass/Vol] 24 mg/dL High 4-19 [facility] Sodium levelOrdered By: Roselyn Mena on 12-30-2024 Sodium [Moles/Vol] 140 mmol/L 133-145 [facility] Total proteinOrdered By: David Mena on 12-30-2024 Protein [Mass/Vol] 6.3 g/dL 5.9-8.4 [facility] White blood cell (WBC) count Ordered By: Lorraine Mena on 12-30-2024 WBC (Bld) [#/Vol] 7.5 10*3/uL 4.4-11.0 [facility] Absolute lymphocyte countOrd ered By: Shilpa Ben on 12-26-2024 Lymphocytes Auto (Unsp spec) [#/Vol] 0.66 10*3/uL Low 0.83-4.51 [facility] Anion gap in Serum or Plasma Ordered By: Shilpa Contreras on 12-26-2024 Anion gap [Moles/Vol] 12 mmol/L 5-15 [facility] Automated lymphocyte count a s percentage of total leukocytesOrdered By: Shilpa Ben on 12-26-2024 Lymphocytes/100 WBC Auto (Unsp spec) 6.5 % Low 19-41 [facility] BUN/creatinine ratioOrdered By: [facility] Ben on 12-26-2024 Urea nitrogen/Creatinine [Mass ratio] 14.4 mg/mg 10-20 [facility] Basophil percentageOrdered B y: Shilpa Ben on 12-26-2024 Basophils/100 WBC (Bld) 0.3 % 0- [facility] Bilirubin, totalOrdered By: Shilpa Ben on 12-26-2024 Bilirubin [Mass/Vol] 0.23 mg/dL 0.00-1.30 [facility] CBC W/Diff, Automatedon 12-17 Absolute Lymph 0.66 X10 3/uL Low 0.83-4.51 [facility] Comment on above: Performed By: #### L 500.4050, L100.0100 ####[facility] [address] [place], [place], [address] Absolute Neut 8.7 X10 3/uL High 2.0-7.7 [facility] Comment on above: Performed By: #### L 500.4050, L100.0100 ####[facility] [address] [place], [address] Basophils/100 WBC (Bld) 0.3 % Normal 0-1 [facility] Comment on above: Performed By: #### L 500.4050, L100.0100 ####[facility] [address] [place], [address] Eosinophils/100 WBC (Bld) 0.2 % Normal 0-5 [facility] Comment on above: Performed By: #### L 500.4050, L100.0100 ####[facility] [address] [place], [address] Erythrocyte distribution width (RBC) [Ratio] 14.7 % High 11.6-14.6 [facility] Comment on above: Performed By: #### L 500.4050, L100.0100 ####[facility] [address] [place], [address] Hematocrit (Bld) [Volume fraction] 35.8 % Low 40-54 [facility] Comment on above: Performed By: #### L 500.4050, L100.0100 ####[facility] [address] [place], [address] Hemoglobin (Bld) [Mass/Vol] 11.3 g/dL Low 13.0-16.5 [facility] Comment on above: Performed By: #### L 500.4050, L100.0100 ####[facility] [address] [place], [address] IG% 0.500 Normal 0.0-0.9 [facility] Comment on above: Result Comment: IG% - Immature Granulocytes (promyelocytes, myelocytes andmetamyelocytes) > 1% indicates that a LEFT SHIFT is Present. Performed By: #### L 500.4050, L100.0100 ####[facility] [address] [place], [address] Lymphocytes/100 WBC (Bld) 6.5 % Low 19-41 [facility] Comment on above: Performed By: #### L 500.4050, L100.0100 ####[facility] [address] [place], [address] MCH (RBC) [Entitic mass] 27.6 pg Normal 27.0-32.0 [facility] Comment on above: Performed By: #### L 500.4050, L100.0100 ####[facility] [address] [place], [address] MCHC (RBC) [Mass/Vol] 31.6 g/dL Low 32-36 [facility] Comment on above: Performed By: #### L 500.4050, L100.0100 ####[facility] [address] [place], [address] MCV (RBC) [Entitic vol] 87.3 fL Normal 80-94 [facility] Comment on above: Performed By: #### L 500.4050, L100.0100 ####[facility] [address] [place], [address] Monocytes/100 WBC (Bld) 7.8 % Normal 0-10 [facility] Comment on above: Performed By: #### L 500.4050, L100.0100 ####[facility] [address] [place], [address] Neutrophils/100 WBC (Bld) 84.7 % High 47-70 [facility] Comment on above: Performed By: #### L 500.4050, L100.0100 ####[facility] [address] [place], [address] Nucleated RBC (Bld) [#/Vol] 0 10*3/uL Normal 0-5 [facility] Comment on above: Performed By: #### L 500.4050, L100.0100 ####[facility] [address] [place], [address] Platelet mean volume (Bld) [Entitic vol] 10.1 fL Normal 6.2-12.0 [facility] Comment on above: Performed By: #### L 500.4050, L100.0100 ####[facility] [address] [place], [address] Platelets (Bld) [#/Vol] 363 10*3/uL Normal 150-450 [facility] Comment on above: Performed By: #### L 500.4050, L100.0100 ####[facility] [address] [place], [address] RBC (Bld) [#/Vol] 4.10 10*6/uL Low 4.6-6.2 [facility] Comment on above: Performed By: #### L 500.4050, L100.0100 ####[facility] [address] [place], [address] RDW SD 46.5 fl High 35.1-43.9 [facility] Comment on above: Performed By: #### L 500.4050, L100.0100 ####[facility] [address] [place], [address] WBC (Bld) [#/Vol] 10.2 10*3/uL Normal 4.4-11.0 [facility] Comment on above: Performed By: #### L 500.4050, L100.0100 ####[facility] [address] [place], [address] Carbon dioxide, total [Moles /volume] in Central venous bloodOrdered By: Shilpa Contreras on 12-26-2024 CO2 [Moles/Vol] 30.3 mmol/L 21.0-32.0 [facility] Chloride assayOrdered By: Kisha Contreras on 12-26-2024 Chloride [Moles/Vol] 98 mmol/L 98-108 [facility] Comprehensive Metabolic Prof ilon 12-26-2024 Albumin [Mass/Vol] 3.7 g/dL Normal 3.4-4.8 [facility] Comment on above: Performed By: #### L 500.4050, L100.0100 ####[facility] [address] [place], [address] Albumin/Globulin [Mass ratio] 1.6 {ratio} Normal 0.9-2.4 [facility] Comment on above: Performed By: #### L 500.4050, L100.0100 ####[facility] [address] [place], [address] ALK PHOS 67 U/L Normal 40-129 [facility] Comment on above: Performed By: #### L 500.4050, L100.0100 ####[facility] [address] [place], [address] ALT [Catalytic activity/Vol] 19 U/L Normal <=46 [facility] Comment on above: Performed By: #### L 500.4050, L100.0100 ####[facility] [address] [place], [address] AST [Catalytic activity/Vol] 22 U/L Normal <=37 [facility] Comment on above: Performed By: #### L 500.4050, L100.0100 ####[facility] [address] [place], [address] Bilirubin [Mass/Vol] 0.23 mg/dL Normal 0.00-1.30 [facility] Comment on above: Performed By: #### L 500.4050, L100.0100 ####[facility] [address] [place], [address] BUN/CRE 14.4 RATIO Normal 10-20 [facility] Comment on above: Performed By: #### L 500.4050, L100.0100 ####[facility] [address] [place], [address] Calcium [Mass/Vol] 9.7 mg/dL Normal 7.6-11.0 [facility] Comment on above: Performed By: #### L 500.4050, L100.0100 ####[facility] [address] [place], [address] Chloride [Moles/Vol] 98 mmol/L Normal 98-108 [facility] Comment on above: Performed By: #### L 500.4050, L100.0100 ####[facility] [address] [place], [address] CO2 [Moles/Vol] 30.3 mmol/L Normal 21.0-32.0 [facility] Comment on above: Performed By: #### L 500.4050, L100.0100 ####[facility] [address] [place], [address] Creatinine [Mass/Vol] 1.07 mg/dL Normal 0.70-1.20 [facility] Comment on above: Performed By: #### L 500.4050, L100.0100 ####[facility] [address] [place], [address] ECRCL 57.71 ml/min Normal 50-250 [facility] Comment on above: Performed By: #### L 500.4050, L100.0100 ####[facility] [address] [place], [address] GAP 12 Normal 5-15 [facility] Comment on above: Performed By: #### L 500.4050, L100.0100 ####[facility] [address] [place], [address] GFR/1.73 sq M.predicted among non-blacks MDRD (S/P/Bld) [Vol rate/Area] 72 mL/min/{1.73_m2} Normal >60 [facility] Comment on above: Result Comment: mL/m in/1.73m2 CKD-EPI Creatinine Equation (2020) Performed By: #### L 500.4050, L100.0100 ####[facility] [address] [place], [address] Globulin (S) [Mass/Vol] 2.3 g/dL Normal 2.2-4.2 [facility] Comment on above: Performed By: #### L 500.4050, L100.0100 ####[facility] [address] [place], [address] Glucose [Mass/Vol] 142 mg/dL High 70-99 [facility] Comment on above: Performed By: #### L 500.4050, L100.0100 ####[facility] [address] [place], [address] Potassium [Moles/Vol] 3.4 mmol/L Normal 3.3-5.1 [facility] Comment on above: Performed By: #### L 500.4050, L100.0100 ####[facility] [address] [place], [address] Sodium [Moles/Vol] 140 mmol/L Normal 133-145 [facility] Comment on above: Performed By: #### L 500.4050, L100.0100 ####[facility] [address] [place], [address] T PROT 6.0 g/dL Normal 5.9-8.4 [facility] Comment on above: Performed By: #### L 500.4050, L100.0100 ####[facility] [address] [place], [address] Urea nitrogen [Mass/Vol] 15 mg/dL Normal 4-19 [facility] Comment on above: Performed By: #### L 500.4050, L100.0100 ####[facility] [address] [place], [address] Eosinophil percentageOrdered By: Shilpa Ben on 12-26-2024 Eosinophils/100 WBC (Bld) 0.2 % 0-5 [facility] Erythrocyte distribution wid th ratioOrdered By: Shilpa White on 12-26-2024 Erythrocyte distribution width (RBC) [Ratio] 14.7 % High 11.6-14.6 [facility] Erythrocyte distribution wid th standard deviationOrdered By: Shilpa Ben on 12-26-2024 Erythrocyte distribution width (RBC) [Ratio] 46.5 fl High 35.1-43.9 [facility] Glomerular filtration rate ( GFR) estimation/1.73 sq m using serum, plasma, or whole bOrdered By: Shilpa Contreras on 12-26-2024 GFR/1.73 sq M.predicted among non-blacks MDRD (S/P/Bld) [Vol rate/Area] 72 mL/min/{1.73_m2} >60 [facility] Hematocrit Auto (Bld) [Volum e fraction]Ordered By: Shilpa Contreras on 12-26-2024 Hematocrit (Bld) [Volume fraction] 35.8 % Low 40-54 [facility] Hemoglobin measurementOrdere d By: Shilpa Ben on 12-26-2024 Hemoglobin (Bld) [Mass/Vol] 11.3 g/dL Low 13.0-16.5 [facility] Immature granulocytes/100 WB C Auto (Bld)Ordered By: Shilpa Ben on 12-26-2024 Immature granulocytes/100 WBC (Bld) 0.500 % 0.0-0.9 [facility] MCV (mean corpuscular volume ) determinationOrdered By: Shilpa Ben on 12-26-2024 MCV (RBC) [Entitic vol] 87.3 fL 80-94 [facility] Mean corpuscular hemoglobin (MCH) determinationOrdered By: Shilpa Ben on 12-26-2024 MCH (RBC) [Entitic mass] 27.6 pg 27.0-32.0 [facility] Monocyte percentageOrdered B y: Shilpa Contreras on 12-26-2024 Monocytes/100 WBC (Bld) 7.8 % 0-10 [facility] Neutrophil percentageOrdered By: Shilpa Ben on 12-26-2024 Neutrophils/100 WBC (Bld) 84.7 % High 47-70 [facility] No Panel InformationOrdered By: Shilpa Contreras on 12-26-2024 22 U/L <38 [facility] Platelet countOrdered By: Kisha Contreras on 12-26-2024 Platelets (Bld) [#/Vol] 363 10*3/uL 150-450 [facility] Potassium measurement (mass/ volume)Ordered By: Shilpa Contreras on 12-26-2024 Potassium (Unsp spec) [Mass/Vol] 3.4 mmol/L 3.3-5.1 [facility] RBC Auto (Bld) [#/Vol]Ordere d By: Shilpa Contreras on 12-26-2024 RBC (Bld) [#/Vol] 4.10 10*6/uL Low 4.6-6.2 [facility] Serum creatinine measurement (mass/volume)Ordered By: Shilpa Contreras on 12-26-2024 Creatinine [Mass/Vol] 1.07 mg/dL 0.70-1.20 [facility] Serum globulin measurementOr dered By: Shilpa Contreras on 12-26-2024 Globulin (S) [Mass/Vol] 2.3 g/dL 2.2-4.2 [facility] Serum glucose measurement (m ass/volume)Ordered By: Shilpa Contreras on 12-26-2024 Glucose [Mass/Vol] 142 mg/dL High 70-99 [facility] Serum or plasma alanine saul otransferase (ALT) measurementOrdered By: Shilpa Contreras on 12-26-2024 ALT [Catalytic activity/Vol] 19 U/L <47 [facility] Serum or plasma albumin luis urement (mass/volume)Ordered By: Shilpa Contreras on 12-26-2024 Albumin [Mass/Vol] 3.7 g/dL 3.4-4.8 [facility] Serum or plasma albumin/glob ulin mass ratioOrdered By: Shilpa Contreras on 12-26-2024 Albumin/Globulin [Mass ratio] 1.6 {ratio} 0.9-2.4 [facility] Serum or plasma alkaline kathleen sphatase measurementOrdered By: Shilpa Contreras on 12-26-2024 ALP [Catalytic activity/Vol] 67 U/L 40-129 [facility] Serum or plasma calcium luis urement (mass/volume)Ordered By: Shilpa Contreras on 12-26-2024 Calcium [Mass/Vol] 9.7 mg/dL 7.6-11.0 [facility] Serum or plasma urea nitroge n measurement (mass/volume)Ordered By: Shilpa Contreras on 12-26-2024 Urea nitrogen [Mass/Vol] 15 mg/dL 4-19 [facility] Sodium levelOrdered By: Rovertou mn White on 12-26-2024 Sodium [Moles/Vol] 140 mmol/L 133-145 [facility] Total proteinOrdered By: Roverto umn White on 12-26-2024 Protein [Mass/Vol] 6.0 g/dL 5.9-8.4 [facility] White blood cell (WBC) count Ordered By: Shilpa Contreras on 12-26-2024 WBC (Bld) [#/Vol] 10.2 10*3/uL 4.4-11.0 [facility] CBC W/Diff, Automatedon 07-0 Absolute Lymph 0.96 X10 3/uL Normal 0.83-4.51 [facility] Comment on above: Performed By: #### L 100.0100, L501.5200, L500.4050 ####[facility] [address] [place], [address] Absolute Neut 9.8 X10 3/uL High 2.0-7.7 [facility] Comment on above: Performed By: #### L 100.0100, L501.5200, L500.4050 ####[facility] [address] [place], [address] Basophils/100 WBC (Bld) 0.3 % Normal 0-1 [facility] Comment on above: Performed By: #### L 100.0100, L501.5200, L500.4050 ####[facility] [address] [place], [address] Eosinophils/100 WBC (Bld) 0.3 % Normal 0-5 [facility] Comment on above: Performed By: #### L 100.0100, L501.5200, L500.4050 ####[facility] [address] [place], [address] Erythrocyte distribution width (RBC) [Ratio] 14.5 % Normal 11.6-14.6 [facility] Comment on above: Performed By: #### L 100.0100, L501.5200, L500.4050 ####[facility] [address] [place], [address] Hematocrit (Bld) [Volume fraction] 40.5 % Normal 40-54 [facility] Comment on above: Performed By: #### L 100.0100, L501.5200, L500.4050 ####[facility] [address] [place], [address] Hemoglobin (Bld) [Mass/Vol] 12.5 g/dL Low 13.0-16.5 [facility] Comment on above: Performed By: #### L 100.0100, L501.5200, L500.4050 ####[facility] [address] [place], [address] IG% 0.700 Normal 0.0-0.9 [facility] Comment on above: Result Comment: IG% - Immature Granulocytes (promyelocytes, myelocytes andmetamyelocytes) > 1% indicates that a LEFT SHIFT is Present. Performed By: #### L 100.0100, L501.5200, L500.4050 ####[facility] [address] [place], [address] Lymphocytes/100 WBC (Bld) 8.0 % Low 19-41 [facility] Comment on above: Performed By: #### L 100.0100, L501.5200, L500.4050 ####[facility] [address] [place], [address] MCH (RBC) [Entitic mass] 27.4 pg Normal 27.0-32.0 [facility] Comment on above: Performed By: #### L 100.0100, L501.5200, L500.4050 ####[facility] [address] [place], [address] MCHC (RBC) [Mass/Vol] 30.9 g/dL Low 32-36 [facility] Comment on above: Performed By: #### L 100.0100, L501.5200, L500.4050 ####[facility] [address] [place], [address] MCV (RBC) [Entitic vol] 88.6 fL Normal 80-94 [facility] Comment on above: Performed By: #### L 100.0100, L501.5200, L500.4050 ####[facility] [address] [place], [address] Monocytes/100 WBC (Bld) 8.4 % Normal 0-10 [facility] Comment on above: Performed By: #### L 100.0100, L501.5200, L500.4050 ####[facility] [address] [place], [address] Neutrophils/100 WBC (Bld) 82.3 % High 47-70 [facility] Comment on above: Performed By: #### L 100.0100, L501.5200, L500.4050 ####[facility] [address] [place], [address] Nucleated RBC (Bld) [#/Vol] 0 10*3/uL Normal 0-5 [facility] Comment on above: Performed By: #### L 100.0100, L501.5200, L500.4050 ####[facility] [address] [place], [address] Platelet mean volume (Bld) [Entitic vol] 10.2 fL Normal 6.2-12.0 [facility] Comment on above: Performed By: #### L 100.0100, L501.5200, L500.4050 ####[facility] [address] [place], [address] Platelets (Bld) [#/Vol] 449 10*3/uL Normal 150-450 [facility] Comment on above: Performed By: #### L 100.0100, L501.5200, L500.4050 ####[facility] [address] [place], [address] RBC (Bld) [#/Vol] 4.57 10*6/uL Low 4.6-6.2 [facility] Comment on above: Performed By: #### L 100.0100, L501.5200, L500.4050 ####[facility] [id number] [place], [address] RDW SD 45.9 fl High 35.1-43.9 [facility] Comment on above: Performed By: #### L 100.0100, L501.5200, L500.4050 ####[facility] [id number] [place], [address] WBC (Bld) [#/Vol] 12.0 10*3/uL High 4.4-11.0 [facility] Comment on above: Performed By: #### L 100.0100, L501.5200, L500.4050 ####[facility] [facility] [address] [place], [address] Comprehensive Metabolic Prof ilon 12-25-2024 Albumin [Mass/Vol] 4.0 g/dL Normal 3.4-4.8 [facility] Comment on above: Performed By: #### L 100.0100, L501.5200, L500.4050 ####[facility] [address] [place], [address] Albumin/Globulin [Mass ratio] 1.5 {ratio} Normal 0.9-2.4 [facility] Comment on above: Performed By: #### L 100.0100, L501.5200, L500.4050 ####[facility] [address] [place], [address] ALK PHOS 74 U/L Normal 40-129 [facility] Comment on above: Performed By: #### L 100.0100, L501.5200, L500.4050 ####[facility] [address] [place], [address] ALT [Catalytic activity/Vol] 22 U/L Normal <=46 [facility] Comment on above: Performed By: #### L 100.0100, L501.5200, L500.4050 ####[facility] [address] [place], [address] AST [Catalytic activity/Vol] 31 U/L Normal <=37 [facility] Comment on above: Performed By: #### L 100.0100, L501.5200, L500.4050 ####[facility] [address] [place], [address] Bilirubin [Mass/Vol] 0.23 mg/dL Normal 0.00-1.30 [facility] Comment on above: Performed By: #### L 100.0100, L501.5200, L500.4050 ####[facility] [address] [place], [address] BUN/CRE 13.4 RATIO Normal 10-20 [facility] Comment on above: Performed By: #### L 100.0100, L501.5200, L500.4050 ####[facility] [address] [place], [address] Calcium [Mass/Vol] 9.5 mg/dL Normal 7.6-11.0 [facility] Comment on above: Performed By: #### L 100.0100, L501.5200, L500.4050 ####[facility] [address] [place], [address] Chloride [Moles/Vol] 101 mmol/L Normal 98-108 [facility] Comment on above: Performed By: #### L 100.0100, L501.5200, L500.4050 ####[facility] [address] [place], [address] CO2 [Moles/Vol] 27.5 mmol/L Normal 21.0-32.0 [facility] Comment on above: Performed By: #### L 100.0100, L501.5200, L500.4050 ####[facility] [address] [place], [address] Creatinine [Mass/Vol] 1.05 mg/dL Normal 0.70-1.20 [facility] Comment on above: Performed By: #### L 100.0100, L501.5200, L500.4050 ####[facility] [address] [place], [address] ECRCL 58.81 ml/min Normal 50-250 [facility] Comment on above: Performed By: #### L 100.0100, L501.5200, L500.4050 ####[facility] [address] [place], [address] GAP 12 Normal 5-15 [facility] Comment on above: Performed By: #### L 100.0100, L501.5200, L500.4050 ####[facility] [address] [place], [address] GFR/1.73 sq M.predicted among non-blacks MDRD (S/P/Bld) [Vol rate/Area] 74 mL/min/{1.73_m2} Normal >60 [facility] Comment on above: Result Comment: mL/m in/1.73m2 CKD-EPI Creatinine Equation (2020) Performed By: #### L 100.0100, L501.5200, L500.4050 ####[facility] [address] [place], [address] Globulin (S) [Mass/Vol] 2.7 g/dL Normal 2.2-4.2 [facility] Comment on above: Performed By: #### L 100.0100, L501.5200, L500.4050 ####[facility] [address] [place], [address] Glucose [Mass/Vol] 118 mg/dL High 70-99 [facility] Comment on above: Performed By: #### L 100.0100, L501.5200, L500.4050 ####[facility] [address] [place], [address] Potassium [Moles/Vol] 3.3 mmol/L Normal 3.3-5.1 [facility] Comment on above: Performed By: #### L 100.0100, L501.5200, L500.4050 ####[facility] [address] [place], [address] Sodium [Moles/Vol] 141 mmol/L Normal 133-145 [facility] Comment on above: Performed By: #### L 100.0100, L501.5200, L500.4050 ####[facility] [address] [place], [address] T PROT 6.7 g/dL Normal 5.9-8.4 [facility] Comment on above: Performed By: #### L 100.0100, L501.5200, L500.4050 ####[facility] [address] [place], [address] Urea nitrogen [Mass/Vol] 14 mg/dL Normal 4-19 [facility] Comment on above: Performed By: #### L 100.0100, L501.5200, L500.4050 ####[facility] [address] [place], [address] Magnesiumon 12-25-2024 Magnesium [Mass/Vol] 2.3 mg/dL High 1.5-2.2 [facility] Comment on above: Performed By: #### L 100.0100, L501.5200, L500.4050 ####[facility] [address] [place], [address] Magnesium measurement (mass/ volume)Ordered By: Sania Peña on 12-25-2024 Magnesium (Unsp spec) [Mass/Vol] 2.3 mg/dL High 1.5-2.2 [facility] Phosphoruson 12-25-2024 Phosphate [Mass/Vol] 2.0 mg/dL Low 2.7-4.5 [facility] Comment on above: Performed By: #### L 501.2300 ####[facility] [address] [place], [address] CBC W/Diff, Automatedon 07 Absolute Lymph 0.72 X10 3/uL Low 0.83-4.51 [facility] Comment on above: Performed By: #### L 100.0100, L500.4050 ####[facility] [address] [place], [address] Absolute Neut 7.0 X10 3/uL Normal 2.0-7.7 [facility] Comment on above: Performed By: #### L 100.0100, L500.4050 ####[facility] [address] [place], [address] Basophils/100 WBC (Bld) 0.5 % Normal 0-1 [facility] Comment on above: Performed By: #### L 100.0100, L500.4050 ####[facility] [address] [place], [address] Eosinophils/100 WBC (Bld) 0.4 % Normal 0-5 [facility] Comment on above: Performed By: #### L 100.0100, L500.4050 ####[facility] [address] [place], [address] Erythrocyte distribution width (RBC) [Ratio] 14.6 % Normal 11.6-14.6 [facility] Comment on above: Performed By: #### L 100.0100, L500.4050 ####[facility] [address] [place], [address] Hematocrit (Bld) [Volume fraction] 37.0 % Low 40-54 [facility] Comment on above: Performed By: #### L 100.0100, L500.4050 ####[facility] [address] [place], [address] Hemoglobin (Bld) [Mass/Vol] 11.5 g/dL Low 13.0-16.5 [facility] Comment on above: Performed By: #### L 100.0100, L500.4050 ####[facility] [address] [place], [address] IG% 0.500 Normal 0.0-0.9 [facility] Comment on above: Result Comment: IG% - Immature Granulocytes (promyelocytes, myelocytes andmetamyelocytes) > 1% indicates that a LEFT SHIFT is Present. Performed By: #### L 100.0100, L500.4050 ####[facility] [address] [place], [address] Lymphocytes/100 WBC (Bld) 8.5 % Low 19-41 [facility] Comment on above: Performed By: #### L 100.0100, L500.4050 ####[facility] [address] [place], [address] MCH (RBC) [Entitic mass] 27.7 pg Normal 27.0-32.0 [facility] Comment on above: Performed By: #### L 100.0100, L500.4050 ####[facility] [address] [place], [address] MCHC (RBC) [Mass/Vol] 31.1 g/dL Low 32-36 [facility] Comment on above: Performed By: #### L 100.0100, L500.4050 ####[facility] [address] [place], [address] MCV (RBC) [Entitic vol] 89.2 fL Normal 80-94 [facility] Comment on above: Performed By: #### L 100.0100, L500.4050 ####[facility] [address] [place], [address] Monocytes/100 WBC (Bld) 7.7 % Normal 0-10 [facility] Comment on above: Performed By: #### L 100.0100, L500.4050 ####[facility] [address] [place], [address] Neutrophils/100 WBC (Bld) 82.4 % High 47-70 [facility] Comment on above: Performed By: #### L 100.0100, L500.4050 ####[facility] [address] [place], [address] Nucleated RBC (Bld) [#/Vol] 0 10*3/uL Normal 0-5 [facility] Comment on above: Performed By: #### L 100.0100, L500.4050 ####[facility] [address] [place], [address] Platelet mean volume (Bld) [Entitic vol] 9.7 fL Normal 6.2-12.0 [facility] Comment on above: Performed By: #### L 100.0100, L500.4050 ####[facility] [address] [place], [address] Platelets (Bld) [#/Vol] 380 10*3/uL Normal 150-450 [facility] Comment on above: Performed By: #### L 100.0100, L500.4050 ####[facility] [address] [place], [address] RBC (Bld) [#/Vol] 4.15 10*6/uL Low 4.6-6.2 [facility] Comment on above: Performed By: #### L 100.0100, L500.4050 ####[facility] [address] [place], [address] RDW SD 46.6 fl High 35.1-43.9 [facility] Comment on above: Performed By: #### L 100.0100, L500.4050 ####[facility] [address] [place], [address] WBC (Bld) [#/Vol] 8.5 10*3/uL Normal 4.4-11.0 [facility] Comment on above: Performed By: #### L 100.0100, L500.4050 ####[facility] [address] [place], [address] Comprehensive Metabolic Prof [facility] 12-24-2024 Albumin [Mass/Vol] 3.8 g/dL Normal 3.4-4.8 [facility] Comment on above: Performed By: #### L 100.0100, L500.4050 ####[facility] [address] [place], [address] Albumin/Globulin [Mass ratio] 1.8 {ratio} Normal 0.9-2.4 [facility] Comment on above: Performed By: #### L 100.0100, L500.4050 ####[facility] [address] [place], [address] ALK PHOS 64 U/L Normal 40-129 [facility] Comment on above: Performed By: #### L 100.0100, L500.4050 ####[facility] [address] [place], [address] ALT [Catalytic activity/Vol] 28 U/L Normal <=46 [facility] Comment on above: Performed By: #### L 100.0100, L500.4050 ####[facility] [address] [place], [address] AST [Catalytic activity/Vol] 23 U/L Normal <=37 [facility] Comment on above: Performed By: #### L 100.0100, L500.4050 ####[facility] [address] [place], [address] Bilirubin [Mass/Vol] 0.25 mg/dL Normal 0.00-1.30 [facility] Comment on above: Performed By: #### L 100.0100, L500.4050 ####[facility] [address] [place], [address] BUN/CRE 16.9 RATIO Normal 10-20 [facility] Comment on above: Performed By: #### L 100.0100, L500.4050 ####[facility] [address] [place], [address] Calcium [Mass/Vol] 8.4 mg/dL Normal 7.6-11.0 [facility] Comment on above: Performed By: #### L 100.0100, L500.4050 ####[facility] [address] [place], [address] Chloride [Moles/Vol] 106 mmol/L Normal 98-108 [facility] Comment on above: Performed By: #### L 100.0100, L500.4050 ####[facility] [address] [place], [address] CO2 [Moles/Vol] 23.1 mmol/L Normal 21.0-32.0 [facility] Comment on above: Performed By: #### L 100.0100, L500.4050 ####[facility] [address] [place], [address] Creatinine [Mass/Vol] 0.98 mg/dL Normal 0.70-1.20 [facility] Comment on above: Performed By: #### L 100.0100, L500.4050 ####[facility] [address] [place], [address] ECRCL 63.01 ml/min Normal 50-250 [facility] Comment on above: Performed By: #### L 100.0100, L500.4050 ####[facility] [address] [place], [address] GAP 11 Normal 5-15 [facility] Comment on above: Performed By: #### L 100.0100, L500.4050 ####[facility] [address] [place], [address] GFR/1.73 sq M.predicted among non-blacks MDRD (S/P/Bld) [Vol rate/Area] 81 mL/min/{1.73_m2} Normal >60 [facility] Comment on above: Result Comment: mL/m in/1.73m2 CKD-EPI Creatinine Equation (2020) Performed By: #### L 100.0100, L500.4050 ####[facility] [address] [place], [address] Globulin (S) [Mass/Vol] 2.2 g/dL Normal 2.2-4.2 [facility] Comment on above: Performed By: #### L 100.0100, L500.4050 ####[facility] [address] [place], [address] Glucose [Mass/Vol] 92 mg/dL Normal 70-99 [facility] Comment on above: Performed By: #### L 100.0100, L500.4050 ####[facility] [address] [place], [address] Potassium [Moles/Vol] 3.9 mmol/L Normal 3.3-5.1 [facility] Comment on above: Performed By: #### L 100.0100, L500.4050 ####[facility] [address] [place], [address] Sodium [Moles/Vol] 140 mmol/L Normal 133-145 [facility] Comment on above: Performed By: #### L 100.0100, L500.4050 ####[facility] [address] [place], [address] T PROT 6.0 g/dL Normal 5.9-8.4 [facility] Comment on above: Performed By: #### L 100.0100, L500.4050 ####[facility] [address] [place], [address] Urea nitrogen [Mass/Vol] 17 mg/dL Normal 4-19 [facility] Comment on above: Performed By: #### L 100.0100, L500.4050 ####[facility] [address] [place], [address] Basic Metabolic Profile (BMP )on 12-23-2024 BUN/CRE 16.4 RATIO Normal 10-20 [facility] Comment on above: Performed By: #### L 500.2500, L100.0500 ####[facility] [address] [place], [address] Calcium [Mass/Vol] 8.4 mg/dL Normal 7.6-11.0 [facility] Comment on above: Performed By: #### L 500.2500, L100.0500 ####[facility] [address] [place], [address] Chloride [Moles/Vol] 104 mmol/L Normal 98-108 [facility] Comment on above: Performed By: #### L 500.2500, L100.0500 ####[facility] [address] [place], [address] CO2 [Moles/Vol] 24.1 mmol/L Normal 21.0-32.0 [facility] Comment on above: Performed By: #### L 500.2500, L100.0500 ####[facility] [address] [place], [address] Creatinine [Mass/Vol] 1.02 mg/dL Normal 0.70-1.20 [facility] Comment on above: Performed By: #### L 500.2500, L100.0500 ####[facility] [address] [place], [address] ECRCL 60.54 ml/min Normal 50-250 [facility] Comment on above: Performed By: #### L 500.2500, L100.0500 ####[facility] [address] [place], [address] GAP 11 Normal 5-15 [facility] Comment on above: Performed By: #### L 500.2500, L100.0500 ####[facility] [address] [place], [address] GFR/1.73 sq M.predicted among non-blacks MDRD (S/P/Bld) [Vol rate/Area] 77 mL/min/{1.73_m2} Normal >60 [facility] Comment on above: Result Comment: mL/m in/1.73m2 CKD-EPI Creatinine Equation (2020) Performed By: #### L 500.2500, L100.0500 ####[facility] [address] [place], [address] Glucose [Mass/Vol] 85 mg/dL Normal 70-99 [facility] Comment on above: Performed By: #### L 500.2500, L100.0500 ####[facility] [address] [place], [address] Potassium [Moles/Vol] 3.8 mmol/L Normal 3.3-5.1 [facility] Comment on above: Performed By: #### L 500.2500, L100.0500 ####[facility] [address] [place], [address] Sodium [Moles/Vol] 139 mmol/L Normal 133-145 [facility] Comment on above: Performed By: #### L 500.2500, L100.0500 ####[facility] [address] [place], [address] Urea nitrogen [Mass/Vol] 17 mg/dL Normal 4-19 [facility] Comment on above: Performed By: #### L 500.2500, L100.0500 ####[facility] [address] [place], [address] CBC-Complete Blood Cnt No Di ffon 12-23-2024 Erythrocyte distribution width (RBC) [Ratio] 14.1 % Normal 11.6-14.6 [facility] Comment on above: Performed By: #### L 500.2500, L100.0500 ####[facility] [address] [place], [address] Hematocrit (Bld) [Volume fraction] 36.3 % Low 40-54 [facility] Comment on above: Performed By: #### L 500.2500, L100.0500 ####[facility] [address] [place], [address] Hemoglobin (Bld) [Mass/Vol] 11.2 g/dL Low 13.0-16.5 [facility] Comment on above: Performed By: #### L 500.2500, L100.0500 ####[facility] [address] [place], [address] MCH (RBC) [Entitic mass] 27.7 pg Normal 27.0-32.0 [facility] Comment on above: Performed By: #### L 500.2500, L100.0500 ####[facility] [address] [place], [address] MCHC (RBC) [Mass/Vol] 30.9 g/dL Low 32-36 [facility] Comment on above: Performed By: #### L 500.2500, L100.0500 ####[facility] [address] [place], [address] MCV (RBC) [Entitic vol] 89.9 fL Normal 80-94 [facility] Comment on above: Performed By: #### L 500.2500, L100.0500 ####[facility] [address] [place], [address] Platelet mean volume (Bld) [Entitic vol] 10.0 fL Normal 6.2-12.0 [facility] Comment on above: Performed By: #### L 500.2500, L100.0500 ####[facility] [address] [place], [address] Platelets (Bld) [#/Vol] 376 10*3/uL Normal 150-450 [facility] Comment on above: Performed By: #### L 500.2500, L100.0500 ####[facility] [address] [place], [address] RBC (Bld) [#/Vol] 4.04 10*6/uL Low 4.6-6.2 [facility] Comment on above: Performed By: #### L 500.2500, L100.0500 ####[facility] [address] [place], [address] RDW SD 46.0 fl High 35.1-43.9 [facility] Comment on above: Performed By: #### L 500.2500, L100.0500 ####[facility] [address] [place], [address] WBC (Bld) [#/Vol] 7.5 10*3/uL Normal 4.4-11.0 [facility] Comment on above: Performed By: #### L 500.2500, L100.0500 ####[facility] [address] [place], [address] Duplex ultrasound of carotid artery reportOrdered By: Raul Jensen on 12-23-2024 Study report [facility] Work Phone: EGD Reporton 12-23-2024 EGD Report Normal [facility] MR/POSTOP.ANEon 12-23-2024 MR/POSTOP.ANE Normal [facility] MR/[id number] 12-23-2024 MR/POSTOPAN2 Normal [facility] Basic Metabolic Profile (BMP )on 12-22-2024 BUN/CRE 15.7 RATIO Normal 10-20 [facility] Comment on above: Performed By: #### L 500.2500, L100.0500 ####[facility] [address] [place], [address] Calcium [Mass/Vol] 8.8 mg/dL Normal 7.6-11.0 [facility] Comment on above: Performed By: #### L 500.2500, L100.0500 ####[facility] [address] [place], [address] Chloride [Moles/Vol] 103 mmol/L Normal 98-108 [facility] Comment on above: Performed By: #### L 500.2500, L100.0500 ####[facility] [address] [place], [address] CO2 [Moles/Vol] 24.6 mmol/L Normal 21.0-32.0 [facility] Comment on above: Performed By: #### L 500.2500, L100.0500 ####[facility] [address] [place], [address] Creatinine [Mass/Vol] 1.03 mg/dL Normal 0.70-1.20 [facility] Comment on above: Performed By: #### L 500.2500, L100.0500 ####[facility] [address] [place], [address] ECRCL 59.95 ml/min Normal 50-250 [facility] Comment on above: Performed By: #### L 500.2500, L100.0500 ####[facility] [address] [place], [address] GAP 11 Normal 5-15 [facility] Comment on above: Performed By: #### L 500.2500, L100.0500 ####[facility] [address] [place], [address] GFR/1.73 sq M.predicted among non-blacks MDRD (S/P/Bld) [Vol rate/Area] 76 mL/min/{1.73_m2} Normal >60 [facility] Comment on above: Result Comment: mL/m in/1.73m2 CKD-EPI Creatinine Equation (2020) Performed By: #### L 500.2500, L100.0500 ####[facility] [id number], [address] Glucose [Mass/Vol] 84 mg/dL Normal 70-99 [facility] Comment on above: Performed By: #### L 500.2500, L100.0500 ####[facility] [id number] [place], [address] Potassium [Moles/Vol] 3.6 mmol/L Normal 3.3-5.1 [facility] Comment on above: Performed By: #### L 500.2500, L100.0500 ####[facility] [id number] [place], [address] Sodium [Moles/Vol] 139 mmol/L Normal 133-145 [facility] Comment on above: Performed By: #### L 500.2500, L100.0500 ####[facility] [address] [place], [address] Urea nitrogen [Mass/Vol] 16 mg/dL Normal 4-19 [facility] Comment on above: Performed By: #### L 500.2500, L100.0500 ####[facility] [address] [place], [address] CBC-Complete Blood Cnt No Di ffon 12-22-2024 Erythrocyte distribution width (RBC) [Ratio] 13.8 % Normal 11.6-14.6 [facility] Comment on above: Performed By: #### L 500.2500, L100.0500 ####[facility] [address] [place], [address] Hematocrit (Bld) [Volume fraction] 37.7 % Low 40-54 [facility] Comment on above: Performed By: #### L 500.2500, L100.0500 ####[facility] [address] [place], [address] Hemoglobin (Bld) [Mass/Vol] 11.7 g/dL Low 13.0-16.5 [facility] Comment on above: Performed By: #### L 500.2500, L100.0500 ####[facility] [address] [place], [address] MCH (RBC) [Entitic mass] 27.7 pg Normal 27.0-32.0 [facility] Comment on above: Performed By: #### L 500.2500, L100.0500 ####[facility] [address] [place], [address] MCHC (RBC) [Mass/Vol] 31.0 g/dL Low 32-36 [facility] Comment on above: Performed By: #### L 500.2500, L100.0500 ####[facility] [address] [place], [address] MCV (RBC) [Entitic vol] 89.1 fL Normal 80-94 [facility] Comment on above: Performed By: #### L 500.2500, L100.0500 ####[facility] [address] [place], [address] Platelet mean volume (Bld) [Entitic vol] 10.1 fL Normal 6.2-12.0 [facility] Comment on above: Performed By: #### L 500.2500, L100.0500 ####[facility] [address] [place], [address] Platelets (Bld) [#/Vol] 392 10*3/uL Normal 150-450 [facility] Comment on above: Performed By: #### L 500.2500, L100.0500 ####[facility] [address] [place], [address] RBC (Bld) [#/Vol] 4.23 10*6/uL Low 4.6-6.2 [facility] Comment on above: Performed By: #### L 500.2500, L100.0500 ####[facility] [address] [place], [address] RDW SD 45.0 fl High 35.1-43.9 [facility] Comment on above: Performed By: #### L 500.2500, L100.0500 ####[facility] [address] [place], [address] WBC (Bld) [#/Vol] 7.5 10*3/uL Normal 4.4-11.0 [facility] Comment on above: Performed By: #### L 500.2500, L100.0500 ####[facility] [address] [place], [address] Basic Metabolic Profile (BMP )on 12-21-2024 BUN/CRE 16.2 RATIO Normal 10-20 [facility] Comment on above: Performed By: #### L 100.0100, L500.2500 ####[facility] [address] [place], [address] Calcium [Mass/Vol] 8.3 mg/dL Normal 7.6-11.0 [facility] Comment on above: Performed By: #### L 100.0100, L500.2500 ####[facility] [address] [place], [address] Chloride [Moles/Vol] 105 mmol/L Normal 98-108 [facility] Comment on above: Performed By: #### L 100.0100, L500.2500 ####[facility] [address] [place], [address] CO2 [Moles/Vol] 25.0 mmol/L Normal 21.0-32.0 [facility] Comment on above: Performed By: #### L 100.0100, L500.2500 ####[facility] [address] [place], [address] Creatinine [Mass/Vol] 0.99 mg/dL Normal 0.70-1.20 [facility] Comment on above: Performed By: #### L 100.0100, L500.2500 ####[facility] [address] [place], [address] ECRCL 62.37 ml/min Normal 50-250 [facility] Comment on above: Performed By: #### L 100.0100, L500.2500 ####[facility] [address] [place], [address] GAP 9 Normal 5-15 [facility] Comment on above: Performed By: #### L 100.0100, L500.2500 ####[facility] [address] [place], [address] GFR/1.73 sq M.predicted among non-blacks MDRD (S/P/Bld) [Vol rate/Area] 80 mL/min/{1.73_m2} Normal >60 [facility] Comment on above: Result Comment: mL/m in/1.73m2 CKD-EPI Creatinine Equation (2020) Performed By: #### L 100.0100, L500.2500 ####[facility] [address] [place], [address] Glucose [Mass/Vol] 95 mg/dL Normal 70-99 [facility] Comment on above: Performed By: #### L 100.0100, L500.2500 ####[facility] [address] [place], [address] Potassium [Moles/Vol] 3.5 mmol/L Normal 3.3-5.1 [facility] Comment on above: Performed By: #### L 100.0100, L500.2500 ####[facility] [address] [place], [address] Sodium [Moles/Vol] 139 mmol/L Normal 133-145 [facility] Comment on above: Performed By: #### L 100.0100, L500.2500 ####[facility] [address] [place], [address] Urea nitrogen [Mass/Vol] 16 mg/dL Normal 4-19 [facility] Comment on above: Performed By: #### L 100.0100, L500.2500 ####[facility] [address] [place], [address] CBC W/Diff, Automatedon 07-0 5-2025 Absolute Lymph 0.95 X10 3/uL Normal 0.83-4.51 [facility] Comment on above: Performed By: #### L 100.0100, L500.2500 ####[facility] [address] [place], [address] Absolute Neut 5.0 X10 3/uL Normal 2.0-7.7 [facility] Comment on above: Performed By: #### L 100.0100, L500.2500 ####[facility] [address] [place], [address] Basophils/100 WBC (Bld) 0.6 % Normal 0-1 [facility] Comment on above: Performed By: #### L 100.0100, L500.2500 ####[facility] [address] [place], [address] Eosinophils/100 WBC (Bld) 1.2 % Normal 0-5 [facility] Comment on above: Performed By: #### L 100.0100, L500.2500 ####[facility] [address] [place], [address] Erythrocyte distribution width (RBC) [Ratio] 13.7 % Normal 11.6-14.6 [facility] Comment on above: Performed By: #### L 100.0100, L500.2500 ####[facility] [address] [place], [address] Hematocrit (Bld) [Volume fraction] 33.8 % Low 40-54 [facility] Comment on above: Performed By: #### L 100.0100, L500.2500 ####[facility] [address] [place], [address] Hemoglobin (Bld) [Mass/Vol] 10.4 g/dL Low 13.0-16.5 [facility] Comment on above: Performed By: #### L 100.0100, L500.2500 ####[facility] [address] [place], [address] IG% 0.400 Normal 0.0-0.9 [facility] Comment on above: Result Comment: IG% - Immature Granulocytes (promyelocytes, myelocytes andmetamyelocytes) > 1% indicates that a LEFT SHIFT is Present. Performed By: #### L 100.0100, L500.2500 ####[facility] [address] [place], [address] Lymphocytes/100 WBC (Bld) 14.2 % Low 19-41 [facility] Comment on above: Performed By: #### L 100.0100, L500.2500 ####[facility] [address] [place], [address] MCH (RBC) [Entitic mass] 27.6 pg Normal 27.0-32.0 [facility] Comment on above: Performed By: #### L 100.0100, L500.2500 ####[facility] [address] [place], [address] MCHC (RBC) [Mass/Vol] 30.8 g/dL Low 32-36 [facility] Comment on above: Performed By: #### L 100.0100, L500.2500 ####[facility] [address] [place], [address] MCV (RBC) [Entitic vol] 89.7 fL Normal 80-94 [facility] Comment on above: Performed By: #### L 100.0100, L500.2500 ####[facility] [address] [place], [address] Monocytes/100 WBC (Bld) 8.5 % Normal 0-10 [facility] Comment on above: Performed By: #### L 100.0100, L500.2500 ####[facility] [address] [place], [address] Neutrophils/100 WBC (Bld) 75.1 % High 47-70 [facility] Comment on above: Performed By: #### L 100.0100, L500.2500 ####[facility] [address] [place], [address] Nucleated RBC (Bld) [#/Vol] 0 10*3/uL Normal 0-5 [facility] Comment on above: Performed By: #### L 100.0100, L500.2500 ####[facility] [address] [place], [address] Platelet mean volume (Bld) [Entitic vol] 9.7 fL Normal 6.2-12.0 [facility] Comment on above: Performed By: #### L 100.0100, L500.2500 ####[facility] [address] [place], [address] Platelets (Bld) [#/Vol] 326 10*3/uL Normal 150-450 [facility] Comment on above: Performed By: #### L 100.0100, L500.2500 ####[facility] [address] [place], [address] RBC (Bld) [#/Vol] 3.77 10*6/uL Low 4.6-6.2 [facility] Comment on above: Performed By: #### L 100.0100, L500.2500 ####[facility] [address] [place], [address] RDW SD 44.7 fl High 35.1-43.9 [facility] Comment on above: Performed By: #### L 100.0100, L500.2500 ####[facility] [address] [place], [address] WBC (Bld) [#/Vol] 6.7 10*3/uL Normal 4.4-11.0 [facility] Comment on above: Performed By: #### L 100.0100, L500.2500 ####[facility] [address] [place], [address] CBC W/Diff, Automatedon 07-0 4-2024 Absolute Lymph 0.69 X10 3/uL Low 0.83-4.51 [facility] Comment on above: Performed By: #### L 100.0100 ####[facility] [address] [place], [address] Absolute Neut 5.5 X10 3/uL Normal 2.0-7.7 [facility] Comment on above: Performed By: #### L 100.0100 ####[facility] [address] [place], [address] Basophils/100 WBC (Bld) 0.9 % Normal 0-1 [facility] Comment on above: Performed By: #### L 100.0100 ####[facility] [address] [place], [address] Eosinophils/100 WBC (Bld) 1.2 % Normal 0-5 [facility] Comment on above: Performed By: #### L 100.0100 ####[facility] [address] [place], [address] Erythrocyte distribution width (RBC) [Ratio] 13.7 % Normal 11.6-14.6 [facility] Comment on above: Performed By: #### L 100.0100 ####[facility] [address] [place], [address] Hematocrit (Bld) [Volume fraction] 35.7 % Low 40-54 [facility] Comment on above: Performed By: #### L 100.0100 ####[facility] [address] [place], [address] Hemoglobin (Bld) [Mass/Vol] 10.9 g/dL Low 13.0-16.5 [facility] Comment on above: Performed By: #### L 100.0100 ####[facility] [address] [place], [address] IG% 0.400 Normal 0.0-0.9 [facility] Comment on above: Result Comment: IG% - Immature Granulocytes (promyelocytes, myelocytes andmetamyelocytes) > 1% indicates that a LEFT SHIFT is Present. Performed By: #### L 100.0100 ####[facility] [address] [place], [address] Lymphocytes/100 WBC (Bld) 9.9 % Low 19-41 [facility] Comment on above: Performed By: #### L 100.0100 ####[facility] [address] [place], [address] MCH (RBC) [Entitic mass] 27.3 pg Normal 27.0-32.0 [facility] Comment on above: Performed By: #### L 100.0100 ####[facility] [address] [place], [address] MCHC (RBC) [Mass/Vol] 30.5 g/dL Low 32-36 [facility] Comment on above: Performed By: #### L 100.0100 ####[facility] [address] [place], [address] MCV (RBC) [Entitic vol] 89.5 fL Normal 80-94 [facility] Comment on above: Performed By: #### L 100.0100 ####[facility] [address] [place], [address] Monocytes/100 WBC (Bld) 8.5 % Normal 0-10 [facility] Comment on above: Performed By: #### L 100.0100 ####[facility] [address] [place], [address] Neutrophils/100 WBC (Bld) 79.1 % High 47-70 [facility] Comment on above: Performed By: #### L 100.0100 ####[facility] [address] [place], [address] Nucleated RBC (Bld) [#/Vol] 0 10*3/uL Normal 0-5 [facility] Comment on above: Performed By: #### L 100.0100 ####[facility] [address] [place], [address] Platelet mean volume (Bld) [Entitic vol] 10.0 fL Normal 6.2-12.0 [facility] Comment on above: Performed By: #### L 100.0100 ####[facility] [address] [place], [address] Platelets (Bld) [#/Vol] 355 10*3/uL Normal 150-450 [facility] Comment on above: Performed By: #### L 100.0100 ####[facility] [address] [place], [address] RBC (Bld) [#/Vol] 3.99 10*6/uL Low 4.6-6.2 [facility] Comment on above: Performed By: #### L 100.0100 ####[facility] [address] [place], [address] RDW SD 44.4 fl High 35.1-43.9 [facility] Comment on above: Performed By: #### L 100.0100 ####[facility] [address] [place], [address] WBC (Bld) [#/Vol] 6.9 10*3/uL Normal 4.4-11.0 [facility] Comment on above: Performed By: #### L 100.0100 ####[facility] [address] [place], [address] Carotid Duplex Ultrasoundon 12-20-2024 Carotid Duplex Ultrasound Normal [facility] Vitamin B12on 12-20-2024 Cobalamin (Vitamin B12) [Mass/Vol] 774 pg/mL Normal 180-914 [facility] Comment on above: Performed By: #### L 503.0106 ####[facility] [address] [place], [address] Vitamin B12 ser/plasOrdered By: Lisha Talamantes on 12-20-2024 Cobalamin (Vitamin B12) [Mass/Vol] 774 pg/mL 180-914 [facility] CBC W/Diff, Automatedon Absolute Lymph 0.67 X10 3/uL Low 0.83-4.51 [facility] Comment on above: Performed By: #### L 100.0100, L500.4050 ####[facility] [address] [place], [address] Absolute Neut 6.0 X10 3/uL Normal 2.0-7.7 [facility] Comment on above: Performed By: #### L 100.0100, L500.4050 ####[facility] [address] [place], [address] Basophils/100 WBC (Bld) 0.8 % Normal 0-1 [facility] Comment on above: Performed By: #### L 100.0100, L500.4050 ####[facility] [address] [place], [address] Eosinophils/100 WBC (Bld) 1.9 % Normal 0-5 [facility] Comment on above: Performed By: #### L 100.0100, L500.4050 ####[facility] [address] [place], [address] Erythrocyte distribution width (RBC) [Ratio] 13.6 % Normal 11.6-14.6 [facility] Comment on above: Performed By: #### L 100.0100, L500.4050 ####[facility] [address] [place], [address] Hematocrit (Bld) [Volume fraction] 39.1 % Low 40-54 [facility] Comment on above: Performed By: #### L 100.0100, L500.4050 ####[facility] [address] [place], [address] Hemoglobin (Bld) [Mass/Vol] 11.9 g/dL Low 13.0-16.5 [facility] Comment on above: Performed By: #### L 100.0100, L500.4050 ####[facility] [address] [place], [address] IG% 0.400 Normal 0.0-0.9 [facility] Comment on above: Result Comment: IG% - Immature Granulocytes (promyelocytes, myelocytes andmetamyelocytes) > 1% indicates that a LEFT SHIFT is Present. Performed By: #### L 100.0100, L500.4050 ####[facility] [address] [place], [address] Lymphocytes/100 WBC (Bld) 9.0 % Low 19-41 [facility] Comment on above: Performed By: #### L 100.0100, L500.4050 ####[facility] [address] [place], [address] MCH (RBC) [Entitic mass] 27.5 pg Normal 27.0-32.0 [facility] Comment on above: Performed By: #### L 100.0100, L500.4050 ####[facility] [address] [place], [address] MCHC (RBC) [Mass/Vol] 30.4 g/dL Low 32-36 [facility] Comment on above: Performed By: #### L 100.0100, L500.4050 ####[facility] [address] [place], [address] MCV (RBC) [Entitic vol] 90.5 fL Normal 80-94 [facility] Comment on above: Performed By: #### L 100.0100, L500.4050 ####[facility] [address] [place], [address] Monocytes/100 WBC (Bld) 6.6 % Normal 0-10 [facility] Comment on above: Performed By: #### L 100.0100, L500.4050 ####[facility] [address] [place], [address] Neutrophils/100 WBC (Bld) 81.3 % High 47-70 [facility] Comment on above: Performed By: #### L 100.0100, L500.4050 ####[facility] [address] [place], [address] Nucleated RBC (Bld) [#/Vol] 0 10*3/uL Normal 0-5 [facility] Comment on above: Performed By: #### L 100.0100, L500.4050 ####[facility] [address] [place], [address] Platelet mean volume (Bld) [Entitic vol] 9.6 fL Normal 6.2-12.0 [facility] Comment on above: Performed By: #### L 100.0100, L500.4050 ####[facility] [address] [place], [address] Platelets (Bld) [#/Vol] 375 10*3/uL Normal 150-450 [facility] Comment on above: Performed By: #### L 100.0100, L500.4050 ####[facility] [address] [place], [address] RBC (Bld) [#/Vol] 4.32 10*6/uL Low 4.6-6.2 [facility] Comment on above: Performed By: #### L 100.0100, L500.4050 ####[facility] [address] [place], [address] RDW SD 44.8 fl High 35.1-43.9 [facility] Comment on above: Performed By: #### L 100.0100, L500.4050 ####[facility] [address] [place], [address] WBC (Bld) [#/Vol] 7.4 10*3/uL Normal 4.4-11.0 [facility] Comment on above: Performed By: #### L 100.0100, L500.4050 ####[facility] [address] [place], [address] CDIFF (PCR)on 12-19-2024 CDIFF Normal [facility] Comment on above: Performed By: #### M 100.6796 ####[facility] [address] [place], [address] Comprehensive Metabolic Prof ilon 12-19-2024 Albumin [Mass/Vol] 4.3 g/dL Normal 3.4-4.8 [facility] Comment on above: Performed By: #### L 100.0100, L500.4050 ####[facility] [address] [place], [address] Albumin/Globulin [Mass ratio] 1.5 {ratio} Normal 0.9-2.4 [facility] Comment on above: Performed By: #### L 100.0100, L500.4050 ####[facility] [address] [place], [address] ALK PHOS 69 U/L Normal 40-129 [facility] Comment on above: Performed By: #### L 100.0100, L500.4050 ####[facility] [address] [place], [address] ALT [Catalytic activity/Vol] 25 U/L Normal <=46 [facility] Comment on above: Performed By: #### L 100.0100, L500.4050 ####[facility] [address] [place], [address] AST [Catalytic activity/Vol] 23 U/L Normal <=37 [facility] Comment on above: Performed By: #### L 100.0100, L500.4050 ####[facility] [address] [place], [address] Bilirubin [Mass/Vol] 0.24 mg/dL Normal 0.00-1.30 [facility] Comment on above: Performed By: #### L 100.0100, L500.4050 ####[facility] [address] [place], [address] BUN/CRE 17.6 RATIO Normal 10-20 [facility] Comment on above: Performed By: #### L 100.0100, L500.4050 ####[facility] [address] [place], [address] Calcium [Mass/Vol] 9.5 mg/dL Normal 7.6-11.0 [facility] Comment on above: Performed By: #### L 100.0100, L500.4050 ####[facility] [address] [place], [address] Chloride [Moles/Vol] 101 mmol/L Normal 98-108 [facility] Comment on above: Performed By: #### L 100.0100, L500.4050 ####[facility] [address] [place], [address] CO2 [Moles/Vol] 27.6 mmol/L Normal 21.0-32.0 [facility] Comment on above: Performed By: #### L 100.0100, L500.4050 ####[facility] [address] [place], [address] Creatinine [Mass/Vol] 1.06 mg/dL Normal 0.70-1.20 [facility] Comment on above: Performed By: #### L 100.0100, L500.4050 ####[facility] [address] [place], [address] ECRCL 58.25 ml/min Normal 50-250 [facility] Comment on above: Performed By: #### L 100.0100, L500.4050 ####[facility] [address] [place], [address] GAP 12 Normal 5-15 [facility] Comment on above: Performed By: #### L 100.0100, L500.4050 ####[facility] [address] [place], [address] GFR/1.73 sq M.predicted among non-blacks MDRD (S/P/Bld) [Vol rate/Area] 73 mL/min/{1.73_m2} Normal >60 [facility] Comment on above: Result Comment: mL/m in/1.73m2 CKD-EPI Creatinine Equation (2020) Performed By: #### L 100.0100, L500.4050 ####[facility] [address] [place], [address] Globulin (S) [Mass/Vol] 2.8 g/dL Normal 2.2-4.2 [facility] Comment on above: Performed By: #### L 100.0100, L500.4050 ####[facility] [address] [place], [address] Glucose [Mass/Vol] 109 mg/dL High 70-99 [facility] Comment on above: Performed By: #### L 100.0100, L500.4050 ####[facility] [address] [place], [address] Potassium [Moles/Vol] 3.6 mmol/L Normal 3.3-5.1 [facility] Comment on above: Performed By: #### L 100.0100, L500.4050 ####[facility] [address] [place], [address] Sodium [Moles/Vol] 141 mmol/L Normal 133-145 [facility] Comment on above: Performed By: #### L 100.0100, L500.4050 ####[facility] [address] [place], [address] T PROT 7.1 g/dL Normal 5.9-8.4 [facility] Comment on above: Performed By: #### L 100.0100, L500.4050 ####[facility] [address] [place], [address] Urea nitrogen [Mass/Vol] 19 mg/dL Normal 4-19 [facility] Comment on above: Performed By: #### L 100.0100, L500.4050 ####[facility] [address] [place], [address] ENTERIC PATHOGEN PANEL STOOL on 12-19-2024 EP PANEL Normal [facility] Comment on above: Performed By: #### M 100.637 ####[facility] [address] [place], [address] Magnetic resonance imaging r eportOrdered By: Dorian Parker on 12-19-2024 Study report [facility] Basic Metabolic Profile (BMP )on 12-18-2024 BUN/CRE 20.6 RATIO High 10-20 [facility] Comment on above: Performed By: #### L 500.2500, L100.0500 ####[facility] [address] [place], [address] Calcium [Mass/Vol] 9.7 mg/dL Normal 7.6-11.0 [facility] Comment on above: Performed By: #### L 500.2500, L100.0500 ####[facility] [address] [place], [address] Chloride [Moles/Vol] 103 mmol/L Normal 98-108 [facility] Comment on above: Performed By: #### L 500.2500, L100.0500 ####[facility] [address] [place], [address] CO2 [Moles/Vol] 26.5 mmol/L Normal 21.0-32.0 [facility] Comment on above: Performed By: #### L 500.2500, L100.0500 ####[facility] [address] [place], [address] Creatinine [Mass/Vol] 1.06 mg/dL Normal 0.70-1.20 [facility] Comment on above: Performed By: #### L 500.2500, L100.0500 ####[facility] [address] [place], [address] ECRCL 58.25 ml/min Normal 50-250 [facility] Comment on above: Performed By: #### L 500.2500, L100.0500 ####[facility] [address] [place], [address] GAP 12 Normal 5-15 [facility] Comment on above: Performed By: #### L 500.2500, L100.0500 ####[facility] [address] [place], [address] GFR/1.73 sq M.predicted among non-blacks MDRD (S/P/Bld) [Vol rate/Area] 73 mL/min/{1.73_m2} Normal >60 [facility] Comment on above: Result Comment: mL/m in/1.73m2 CKD-EPI Creatinine Equation (2020) Performed By: #### L 500.2500, L100.0500 ####[facility] [address] [place], [address] Glucose [Mass/Vol] 95 mg/dL Normal 70-99 [facility] Comment on above: Performed By: #### L 500.2500, L100.0500 ####[facility] [address] [place], [address] Potassium [Moles/Vol] 4.2 mmol/L Normal 3.3-5.1 [facility] Comment on above: Result Comment: Hemo lysis present, Results??could be affected.?? Performed By: #### L 500.2500, L100.0500 ####[facility] [address] [place], [address] Sodium [Moles/Vol] 141 mmol/L Normal 133-145 [facility] Comment on above: Performed By: #### L 500.2500, L100.0500 ####[facility] [address] [place], [address] Urea nitrogen [Mass/Vol] 22 mg/dL High 4-19 [facility] Comment on above: Performed By: #### L 500.2500, L100.0500 ####[facility] [address] [place], [address] Brain without Contraston Brain without Contrast Normal [place] CBC-Complete Blood Cnt No Di ffon 12-18-2024 Erythrocyte distribution width (RBC) [Ratio] 13.7 % Normal 11.6-14.6 [facility] Comment on above: Performed By: #### L 500.2500, L100.0500 ####[facility] [address] [place], [address] Hematocrit (Bld) [Volume fraction] 41.9 % Normal 40-54 [facility] Comment on above: Performed By: #### L 500.2500, L100.0500 ####[facility] [address] [place], [address] Hemoglobin (Bld) [Mass/Vol] 12.8 g/dL Low 13.0-16.5 [facility] Comment on above: Performed By: #### L 500.2500, L100.0500 ####[facility] [address] [place], [address] MCH (RBC) [Entitic mass] 27.7 pg Normal 27.0-32.0 [facility] Comment on above: Performed By: #### L 500.2500, L100.0500 ####[facility] [address] [place], [address] MCHC (RBC) [Mass/Vol] 30.5 g/dL Low 32-36 [facility] Comment on above: Performed By: #### L 500.2500, L100.0500 ####[facility] [address] [place], [address] MCV (RBC) [Entitic vol] 90.7 fL Normal 80-94 [facility] Comment on above: Performed By: #### L 500.2500, L100.0500 ####[facility] [address] [place], [address] Platelet mean volume (Bld) [Entitic vol] 9.9 fL Normal 6.2-12.0 [facility] Comment on above: Performed By: #### L 500.2500, L100.0500 ####[facility] [address] [place], [address] Platelets (Bld) [#/Vol] 386 10*3/uL Normal 150-450 [facility] Comment on above: Performed By: #### L 500.2500, L100.0500 ####[facility] [address] [place], [address] RBC (Bld) [#/Vol] 4.62 10*6/uL Normal 4.6-6.2 [facility] Comment on above: Performed By: #### L 500.2500, L100.0500 ####[facility] [address] [place], [address] RDW SD 45.7 fl High 35.1-43.9 [facility] Comment on above: Performed By: #### L 500.2500, L100.0500 ####[facility] [address] [place], [address] WBC (Bld) [#/Vol] 10.4 10*3/uL Normal 4.4-11.0 [facility] Comment on above: Performed By: #### L 500.2500, L100.0500 ####[facility] [address] [place], [address] Clostridium difficile detect ion by polymerase chain reactionOrdered By: Lisha Talamantes on 12-18-2024 C. difficile DNA ALEENA+probe Ql (Unsp spec) [facility] Echo, Limited Studyon 2024 Echo, Limited Study Normal [facility] Electrocardiogram reportOrde red By: Brendan Vallejo on 12-18-2024 EKG study [facility] Other Phone: [phone] Limited echocardiogram repor tOrdered By: Milton Guajardo on 12-18-2024 Study report [facility] Work Phone: MR/CON.PCM.NEon 12-18-2024 MR/CON.PCM.NE Normal [facility] 12 Lead EKGon 12-17-2024 12 Lead EKG Normal [facility] Absolute lymphocyte countOrd ered By: Seth Pritchard on 12-17-2024 Lymphocytes Auto (Unsp spec) [#/Vol] 1.03 10*3/uL 0.83-4.51 [facility] Activated partial thrombopla stin time (aPTT) in platelet poor plasma by coagulation aOrdered By: Seth Pritchard on 12-17-2024 aPTT Coag (PPP) [Time] 24.2 s 24.1-36.2 [place] Anion gap in Serum or Plasma Ordered By: Seth Pritchard on 12-17-2024 Anion gap [Moles/Vol] 13 mmol/L 5-15 [facility] Automated blood erythrocyte countOrdered By: Seth Pritchard on 12-17-2024 RBC (Bld) [#/Vol] 4.45 10*6/uL Low 4.6-6.2 [facility] Comment on above: Performed By: #### L 501.4021, L300.4310, L100.0100, L500.2500, L300.3900 ####[facility] [address] [place], [place], [id number] Automated blood hematocrit ( percentage)Ordered By: Seth Pritchard on 12-17-2024 Hematocrit (Bld) [Volume fraction] 39.6 % Low 40-54 [facility] Comment on above: Performed By: #### L 501.4021, L300.4310, L100.0100, L500.2500, L300.3900 ####[facility] [address] [place], [place], [id number] Automated lymphocyte count a s percentage of total leukocytesOrdered By: Seth Pritchard on 12-17-2024 Lymphocytes/100 WBC Auto (Unsp spec) 12.1 % Low 19-41 [facility] BUN/creatinine ratioOrdered By: Seth Pritchard on 12-17-2024 Urea nitrogen/Creatinine [Mass ratio] 26.4 mg/mg High 10-20 [facility] Basic Metabolic Profile (BMP )on 12-17-2024 BUN/CRE 26.4 RATIO High 10- [facility] Comment on above: Performed By: #### L 501.4021, L300.4310, L100.0100, L500.2500, L300.3900 ####[facility] [address] [place], [address] ECRCL 52.33 ml/min Normal 50-250 [facility] Comment on above: Performed By: #### L 501.4021, L300.4310, L100.0100, L500.2500, L300.3900 ####[facility] [address] [place], [address] GAP 13 Normal 5-15 [facility] Comment on above: Performed By: #### L 501.4021, L300.4310, L100.0100, L500.2500, L300.3900 ####[facility] [address] [place], [address] Potassium [Moles/Vol] 3.6 mmol/L Normal 3.3-5.1 [facility] Comment on above: Performed By: #### L 501.4021, L300.4310, L100.0100, L500.2500, L300.3900 ####[facility] [address] [place], [address] Basophil percentageOrdered B y: Seth Pritchard on 12-17-2024 Basophils/100 WBC (Bld) 1.1 % High 0-1 [facility] Comment on above: Performed By: #### L 501.4021, L300.4310, L100.0100, L500.2500, L300.3900 ####[facility] [address] [place], [address] CBC W/Diff, Automatedon 07-0 Absolute Lymph 1.03 X10 3/uL Normal 0.83-4.51 [facility] Comment on above: Performed By: #### L 501.4021, L300.4310, L100.0100, L500.2500, L300.3900 ####[facility] [address] [place], [address] Absolute Neut 6.6 X10 3/uL Normal 2.0-7.7 [facility] Comment on above: Performed By: #### L 501.4021, L300.4310, L100.0100, L500.2500, L300.3900 ####[facility] [address] [place], [address] IG% 0.400 Normal 0.0-0.9 [facility] Comment on above: Result Comment: IG% - Immature Granulocytes (promyelocytes, myelocytes andmetamyelocytes) > 1% indicates that a LEFT SHIFT is Present. Performed By: #### L 501.4021, L300.4310, L100.0100, L500.2500, L300.3900 ####[facility] [address] [place], [address] Lymphocytes/100 WBC (Bld) 12.1 % Low 19-41 [facility] Comment on above: Performed By: #### L 501.4021, L300.4310, L100.0100, L500.2500, L300.3900 ####[facility] [address] [place], [address] MCHC (RBC) [Mass/Vol] 31.3 g/dL Low 32-36 [facility] Comment on above: Performed By: #### L 501.4021, L300.4310, L100.0100, L500.2500, L300.3900 ####[facility] [address] [place], [address] Nucleated RBC (Bld) [#/Vol] 0 10*3/uL Normal 0-5 [facility] Comment on above: Performed By: #### L 501.4021, L300.4310, L100.0100, L500.2500, L300.3900 ####[facility] [address] [place], [address] Platelet mean volume (Bld) [Entitic vol] 10.0 fL Normal 6.2-12.0 [facility] Comment on above: Performed By: #### L 501.4021, L300.4310, L100.0100, L500.2500, L300.3900 ####[facility] [address] [place], [address] RDW SD 45.6 fl High 35.1-43.9 [facility] Comment on above: Performed By: #### L 501.4021, L300.4310, L100.0100, L500.2500, L300.3900 ####[facility] [address] [place], [address] Carbon dioxide, total [Moles /volume] in Central venous bloodOrdered By: Seth Pritchard on 12-17-2024 CO2 [Moles/Vol] 25.5 mmol/L Normal 21.0-32.0 [facility] Comment on above: Performed By: #### L 501.4021, L300.4310, L100.0100, L500.2500, L300.3900 ####[facility] [address] [place], [place], [id number] Chest PA and Lateralon 12-17 Chest PA and Lateral Normal [facility] Chloride assayOrdered By: Bill Pritchard on 12-17-2024 Chloride [Moles/Vol] 104 mmol/L Normal 98-108 [facility] Comment on above: Performed By: #### L 501.4021, L300.4310, L100.0100, L500.2500, L300.3900 ####[facility] [address] [place], [address] Emergency Department Summary on 12-17-2024 Emergency Department Summary Normal [facility] Eosinophil percentageOrdered By: Seth Pritchard on 12-17-2024 Eosinophils/100 WBC (Bld) 1.1 % Normal 0-5 [facility] Comment on above: Performed By: #### L 501.4021, L300.4310, L100.0100, L500.2500, L300.3900 ####[facility] [address] [place], [address] Erythrocyte distribution wid th ratioOrdered By: Seth Pritchard on 12-17-2024 Erythrocyte distribution width (RBC) [Ratio] 14.0 % Normal 11.6-14.6 [facility] Comment on above: Performed By: #### L 501.4021, L300.4310, L100.0100, L500.2500, L300.3900 ####[facility] [address] [place], [address] Erythrocyte distribution wid th standard deviationOrdered By: Seth Pritchard on 12-17-2024 Erythrocyte distribution width (RBC) [Ratio] 45.6 fl High 35.1-43.9 [facility] Glomerular filtration rate ( GFR) estimation/1.73 sq m using serum, plasma, or whole bOrdered By: Seth Pritchard on 12-17-2024 GFR/1.73 sq M.predicted among non-blacks MDRD (S/P/Bld) [Vol rate/Area] 64 mL/min/{1.73_m2} Normal >60 [facility] Comment on above: Result Comment: mL/m in/1.73m2 CKD-EPI Creatinine Equation (2020) Performed By: #### L 501.4021, L300.4310, L100.0100, L500.2500, L300.3900 ####[facility] [address] [place], [address] H AND P Exam - Hospitaliston 12-17-2024 H&P Exam - Hospitalist Normal [place] Hemoglobin A1c percentageOrd ered By: Roman Patel on 12-17-2024 HbA1c (Bld) [Mass fraction] 5.9 % High <=5.6 [facility] Comment on above: Result Comment: Norm al < 5.7 % Prediabetic 5.7 - 6.4 % Diabetic >or= 6.5 % Please note range changes. Performed By: #### L 501.9520, L501.9985 ####[facility] [address] [place], [address] Hemoglobin measurementOrdere d By: Seth Pritchard on 12-17-2024 Hemoglobin (Bld) [Mass/Vol] 12.4 g/dL Low 13.0-16.5 [facility] Comment on above: Performed By: #### L 501.4021, L300.4310, L100.0100, L500.2500, L300.3900 ####[facility] [address] [place], [address] Immature granulocytes/100 WB C Auto (Bld)Ordered By: Seth Pritchard on 12-17-2024 Immature granulocytes/100 WBC (Bld) 0.400 % 0.0-0.9 [facility] L499.0042on 12-17-2024 Trop T High Sen 23 ng/L High <=22 [facility] Comment on above: Performed By: #### L 499.0042 ####[facility] [address] [place], [address] L499.0043on 12-17-2024 Trop T High Sen 23 ng/L High <=22 [facility] Comment on above: Performed By: #### L 499.0043 ####[facility] [address] [place], [address] L501.4021on 12-17-2024 Trop T High Sen 27 ng/L High <=22 [facility] Comment on above: Performed By: #### L 501.4021, L300.4310, L100.0100, L500.2500, L300.3900 ####[facility] [address] [place], [address] MCV (mean corpuscular volume ) determinationOrdered By: Seth Pritchard on 12-17-2024 MCV (RBC) [Entitic vol] 89.0 fL Normal 80-94 [facility] Comment on above: Performed By: #### L 501.4021, L300.4310, L100.0100, L500.2500, L300.3900 ####[facility] [address] [place], [address] Mean corpuscular hemoglobin (MCH) determinationOrdered By: Seth Pritchard on 12-17-2024 MCH (RBC) [Entitic mass] 27.9 pg Normal 27.0-32.0 [facility] Comment on above: Performed By: #### L 501.4021, L300.4310, L100.0100, L500.2500, L300.3900 ####[facility] [address] [place], [place], [phone]) Monocyte percentageOrdered B y: Seth Pritchard on 12-17-2024 Monocytes/100 WBC (Bld) 7.8 % Normal 0-10 [facility] Comment on above: Performed By: #### L 501.4021, L300.4310, L100.0100, L500.2500, L300.3900 ####[facility] [address] [place], [address] Neutrophil percentageOrdered By: Seth Pritchard on 12-17-2024 Neutrophils/100 WBC (Bld) 77.5 % High 47-70 [facility] Comment on above: Performed By: #### L 501.4021, L300.4310, L100.0100, L500.2500, L300.3900 ####[facility] [address] [place], [address] Partial Thromboplast Timeon 12-17-2024 aPTT Coag (Bld) [Time] 24.2 s Normal 24.1-36.2 [place] Comment on above: Performed By: #### L 501.4021, L300.4310, L100.0100, L500.2500, L300.3900 ####[facility] [address] [place], [address] Platelet countOrdered By: Bill Pritchard on 12-17-2024 Platelets (Bld) [#/Vol] 417 10*3/uL Normal 150-450 [facility] Comment on above: Performed By: #### L 501.4021, L300.4310, L100.0100, L500.2500, L300.3900 ####[facility] [address] [place], [address] Potassium measurement (mass/ volume)Ordered By: Seth Pritchard on 12-17-2024 Potassium (Unsp spec) [Mass/Vol] 3.6 mmol/L 3.3-5.1 [facility] Prothrombin Time w/INRon INR Coag (PPP) [Relative time] 0.9 {INR} Normal [facility] Comment on above: Performed By: #### L 501.4021, L300.4310, L100.0100, L500.2500, L300.3900 ####[facility] [address] [place], [address] Prothrombin timeOrdered By: Seth Pritchard on 12-17-2024 PT Coag (PPP) [Time] 12.8 s Normal 11.7-14.9 [facility] Comment on above: Performed By: #### L 501.4021, L300.4310, L100.0100, L500.2500, L300.3900 ####[facility] [address] [place], [address] STROKE Brain/Head without Co nton 12-17-2024 STROKE Brain/Head without Cont Normal [facility] STROKE CTA Head AND Neck W/C onon 12-17-2024 STROKE CTA Head AND Neck W/Con Normal [facility] Serum creatinine measurement (mass/volume)Ordered By: Seth Pritchard on 12-17-2024 Creatinine [Mass/Vol] 1.18 mg/dL Normal 0.70-1.20 [facility] Comment on above: Performed By: #### L 501.4021, L300.4310, L100.0100, L500.2500, L300.3900 ####[facility] [address] [place], [address] Serum glucose measurement (m ass/volume)Ordered By: Seth Pritchard on 12-17-2024 Glucose [Mass/Vol] 137 mg/dL High 70-99 [facility] Comment on above: Performed By: #### L 501.4021, L300.4310, L100.0100, L500.2500, L300.3900 ####[facility] [address] [place], [address] Serum or plasma calcium luis urement (mass/volume)Ordered By: Seth Pritchard on 12-17-2024 Calcium [Mass/Vol] 9.9 mg/dL Normal 7.6-11.0 [facility] Comment on above: Performed By: #### L 501.4021, L300.4310, L100.0100, L500.2500, L300.3900 ####[facility] [address] [place], [address] Serum or plasma urea nitroge n measurement (mass/volume)Ordered By: Seth Pritchard on 12-17-2024 Urea nitrogen [Mass/Vol] 31 mg/dL High 4-19 [facility] Comment on above: Performed By: #### L 501.4021, L300.4310, L100.0100, L500.2500, L300.3900 ####[facility] [address] [place], [address] Sodium levelOrdered By: Huang Pritchard on 12-17-2024 Sodium [Moles/Vol] 142 mmol/L Normal 133-145 [facility] Comment on above: Performed By: #### L 501.4021, L300.4310, L100.0100, L500.2500, L300.3900 ####[facility] [address] [place], [address] TSH DL <= 0.005 mIU/L QnOrde red By: Roman Patel on 12-17-2024 TSH Qn 3.380 uIU/mL 0.300-4.200 [facility] Thyroid Stim Hormone (TSH)on 12-17-2024 TSH 3.380 uIU/mL Normal 0.300-4.200 [facility] Comment on above: Performed By: #### L 501.9520, L501.9985 ####[facility] [address] [place], [place], [id number] Troponin T.cardiac [Mass/vol ume] in Serum or Plasma by High sensitivity methodOrdered By: Seth Pritchard on 12-17-2024 Troponin T.cardiac High sensitivity method [Mass/Vol] 23 ng/L High <22 [facility] Troponin T.cardiac High sensitivity method [Mass/Vol] 23 ng/L High <22 [facility] Troponin T.cardiac High sensitivity method [Mass/Vol] 27 ng/L High <22 [facility] White blood cell (WBC) count Ordered By: Seth Pritchard on 12-17-2024 WBC (Bld) [#/Vol] 8.5 10*3/uL Normal 4.4-11.0 [facility] Comment on above: Performed By: #### L 501.4021, [id number], L100.0100, L500.2500, L300.3900 ####[facility] [address] [place], [address] Anion gap in Serum or Plasma Ordered By: Lisha Talamantes on 12-16-2024 Anion gap [Moles/Vol] 12 mmol/L - [facility] BUN/creatinine ratioOrdered By: Lisha Talamantes on 12-16-2024 Urea nitrogen/Creatinine [Mass ratio] 24.5 mg/mg High 04-07 [facility] Basic Metabolic Profile (BMP )on 12-16-2024 BUN/CRE 24.5 RATIO High - [facility] Comment on above: Performed By: #### L 500.2500 ####[facility] [address] [place], [address] Calcium [Mass/Vol] 9.4 mg/dL Normal 7.6-11.0 [facility] Comment on above: Performed By: #### L 500.2500 ####[facility] [address] [place], [address] Chloride [Moles/Vol] 102 mmol/L Normal 98-108 [facility] Comment on above: Performed By: #### L 500.2500 ####[facility] [address] [place], [address] CO2 [Moles/Vol] 25.5 mmol/L Normal 21.0-32.0 [facility] Comment on above: Performed By: #### L 500.2500 ####[facility] [address] [place], [address] Creatinine [Mass/Vol] 1.17 mg/dL Normal 0.70-1.20 [facility] Comment on above: Performed By: #### L 500.2500 ####[facility] [address] [place], [address] ECRCL 52.78 ml/min Normal 50-250 [facility] Comment on above: Performed By: #### L 500.2500 ####[facility] [address] [place], [address] GAP 12 Normal 5-15 [facility] Comment on above: Performed By: #### L 500.2500 ####[facility] [address] [place], [address] GFR/1.73 sq M.predicted among non-blacks MDRD (S/P/Bld) [Vol rate/Area] 65 mL/min/{1.73_m2} Normal >60 [facility] Comment on above: Result Comment: mL/m in/1.73m2 CKD-EPI Creatinine Equation (2020) Performed By: #### L 500.2500 ####[facility] [address] [place], [address] Glucose [Mass/Vol] 108 mg/dL High 70-99 [facility] Comment on above: Performed By: #### L 500.2500 ####[facility] [address] [place], [address] Potassium [Moles/Vol] 3.6 mmol/L Normal 3.3-5.1 [facility] Comment on above: Performed By: #### L 500.2500 ####[facility] [address] [place], [address] Sodium [Moles/Vol] 140 mmol/L Normal 133-145 [facility] Comment on above: Performed By: #### L 500.2500 ####[facility] [address] [place], [address] Urea nitrogen [Mass/Vol] 29 mg/dL High 4-19 [facility] Comment on above: Performed By: #### L 500.2500 ####[facility] [address] [place], [address] Carbon dioxide, total [Moles /volume] in Central venous bloodOrdered By: Lisha Talamantes on 12-16-2024 CO2 [Moles/Vol] 25.5 mmol/L 21.0-32.0 [facility] Chloride assayOrdered By: Sierra Talamantes on 12-16-2024 Chloride [Moles/Vol] 102 mmol/L 98-108 [facility] Culture, Blood (WB)on 2024 CUB Blood cultures x2, from two different sites No growth in 5 days. Normal [facility] Comment on above: Performed By: #### M 200.1000 ####[facility] [address] [place], [address] Glomerular filtration rate ( GFR) estimation/1.73 sq m using serum, plasma, or whole bOrdered By: Lisha Talamantes on 12-16-2024 GFR/1.73 sq M.predicted among non-blacks MDRD (S/P/Bld) [Vol rate/Area] 65 mL/min/{1.73_m2} >60 [facility] Potassium measurement (mass/ volume)Ordered By: Lisha Talamantes on 12-16-2024 Potassium (Unsp spec) [Mass/Vol] 3.6 mmol/L 3.3-5.1 [facility] Serum creatinine measurement (mass/volume)Ordered By: Lisha Talamantes on 12-16-2024 Creatinine [Mass/Vol] 1.17 mg/dL 0.70-1.20 [facility] Serum glucose measurement (m ass/volume)Ordered By: Lisha Talamantes on 12-16-2024 Glucose [Mass/Vol] 108 mg/dL High 70-99 [facility] Serum or plasma calcium luis urement (mass/volume)Ordered By: Lisha Talamantes on 12-16-2024 Calcium [Mass/Vol] 9.4 mg/dL 7.6-11.0 [facility] Serum or plasma urea nitroge n measurement (mass/volume)Ordered By: Lisha Talamantes on 12-16-2024 Urea nitrogen [Mass/Vol] 29 mg/dL High 4-19 [facility] Sodium levelOrdered By: Cecilia Talamantes on 12-16-2024 Sodium [Moles/Vol] 140 mmol/L 133-145 [facility] Absolute lymphocyte countOrd ered By: Lisha Talamantes on 12-15-2024 Lymphocytes Auto (Unsp spec) [#/Vol] 0.82 10*3/uL Low 0.83-4.51 [facility] Automated lymphocyte count a s percentage of total leukocytesOrdered By: Lisha Talamantes on 12-15-2024 Lymphocytes/100 WBC Auto (Unsp spec) 9.8 % Low 19-41 [facility] Basic Metabolic Profile (BMP )on 12-15-2024 BUN/CRE 20.1 RATIO High 10-20 [facility] Comment on above: Performed By: #### L 501.5200, L501.2300, L500.2500, L100.0100 ####[facility] [address] [place], [address] Calcium [Mass/Vol] 9.3 mg/dL Normal 7.6-11.0 [facility] Comment on above: Performed By: #### L 501.5200, L501.2300, L500.2500, L100.0100 ####[facility] [address] [place], [address] Chloride [Moles/Vol] 106 mmol/L Normal 98-108 [facility] Comment on above: Performed By: #### L 501.5200, L501.2300, L500.2500, L100.0100 ####[facility] [address] [place], [address] CO2 [Moles/Vol] 24.0 mmol/L Normal 21.0-32.0 [facility] Comment on above: Performed By: #### L 501.5200, L501.2300, L500.2500, L100.0100 ####[facility] [address] [place], [address] Creatinine [Mass/Vol] 1.10 mg/dL Normal 0.70-1.20 [facility] Comment on above: Performed By: #### L 501.5200, L501.2300, L500.2500, L100.0100 ####[facility] [address] [place], [address] ECRCL 56.14 ml/min Normal 50-250 [facility] Comment on above: Performed By: #### L 501.5200, L501.2300, L500.2500, L100.0100 ####[facility] [address] [place], [address] GAP 12 Normal 5-15 [facility] Comment on above: Performed By: #### L 501.5200, L501.2300, L500.2500, L100.0100 ####[facility] [address] [place], [address] GFR/1.73 sq M.predicted among non-blacks MDRD (S/P/Bld) [Vol rate/Area] 70 mL/min/{1.73_m2} Normal >60 [facility] Comment on above: Result Comment: mL/m in/1.73m2 CKD-EPI Creatinine Equation (2020) Performed By: #### L 501.5200, L501.2300, L500.2500, L100.0100 ####[facility] [address] [place], [address] Glucose [Mass/Vol] 97 mg/dL Normal 70-99 [facility] Comment on above: Performed By: #### L 501.5200, L501.2300, L500.2500, L100.0100 ####[facility] [address] [place], [address] Potassium [Moles/Vol] 4.1 mmol/L Normal 3.3-5.1 [facility] Comment on above: Performed By: #### L 501.5200, L501.2300, L500.2500, L100.0100 ####[facility] [address] [place], [address] Sodium [Moles/Vol] 142 mmol/L Normal 133-145 [facility] Comment on above: Performed By: #### L 501.5200, L501.2300, L500.2500, L100.0100 ####[facility] [address] [place], [address] Urea nitrogen [Mass/Vol] 22 mg/dL High 4-19 [facility] Comment on above: Performed By: #### L 501.5200, L501.2300, L500.2500, L100.0100 ####[facility] [address] [place], [address] Basophil percentageOrdered B y: Lisha Talamantes on 12-15-2024 Basophils/100 WBC (Bld) 0.2 % 0-1 [facility] CBC W/Diff, Automatedon 11-18 Absolute Lymph 0.82 X10 3/uL Low 0.83-4.51 [facility] Comment on above: Performed By: #### L 501.5200, L501.2300, L500.2500, L100.0100 ####[facility] [address] [place], [address] Absolute Neut 7.0 X10 3/uL Normal 2.0-7.7 [facility] Comment on above: Performed By: #### L 501.5200, L501.2300, L500.2500, L100.0100 ####[facility] [address] [place], [address] Basophils/100 WBC (Bld) 0.2 % Normal 0-1 [facility] Comment on above: Performed By: #### L 501.5200, L501.2300, L500.2500, L100.0100 ####[facility] [address] [place], [address] Eosinophils/100 WBC (Bld) 0.0 % Normal 0-5 [facility] Comment on above: Performed By: #### L 501.5200, L501.2300, L500.2500, L100.0100 ####[facility] [address] [place], [address] Erythrocyte distribution width (RBC) [Ratio] 13.8 % Normal 11.6-14.6 [facility] Comment on above: Performed By: #### L 501.5200, L501.2300, L500.2500, L100.0100 ####[facility] [address] [place], [address] Hematocrit (Bld) [Volume fraction] 35.6 % Low 40-54 [facility] Comment on above: Performed By: #### L 501.5200, L501.2300, L500.2500, L100.0100 ####[facility] [address] [place], [address] Hemoglobin (Bld) [Mass/Vol] 11.3 g/dL Low 13.0-16.5 [facility] Comment on above: Performed By: #### L 501.5200, L501.2300, L500.2500, L100.0100 ####[facility] [address] [place], [address] IG% 0.400 Normal 0.0-0.9 [facility] Comment on above: Result Comment: IG% - Immature Granulocytes (promyelocytes, myelocytes andmetamyelocytes) > 1% indicates that a LEFT SHIFT is Present. Performed By: #### L 501.5200, L501.2300, L500.2500, L100.0100 ####[facility] [address] [place], [address] Lymphocytes/100 WBC (Bld) 9.8 % Low 19-41 [facility] Comment on above: Performed By: #### L 501.5200, L501.2300, L500.2500, L100.0100 ####[facility] [address] [place], [address] MCH (RBC) [Entitic mass] 28.2 pg Normal 27.0-32.0 [facility] Comment on above: Performed By: #### L 501.5200, L501.2300, L500.2500, L100.0100 ####[facility] [address] [place], [address] MCHC (RBC) [Mass/Vol] 31.7 g/dL Low 32-36 [facility] Comment on above: Performed By: #### L 501.5200, L501.2300, L500.2500, L100.0100 ####[facility] [address] [place], [address] MCV (RBC) [Entitic vol] 88.8 fL Normal 80-94 [facility] Comment on above: Performed By: #### L 501.5200, L501.2300, L500.2500, L100.0100 ####[facility] [address] [place], [address] Monocytes/100 WBC (Bld) 6.3 % Normal 0-10 [facility] Comment on above: Performed By: #### L 501.5200, L501.2300, L500.2500, L100.0100 ####[facility] [address] [place], [address] Neutrophils/100 WBC (Bld) 83.3 % High 47-70 [facility] Comment on above: Performed By: #### L 501.5200, L501.2300, L500.2500, L100.0100 ####[facility] [address] [place], [address] Nucleated RBC (Bld) [#/Vol] 0 10*3/uL Normal 0-5 [facility] Comment on above: Performed By: #### L 501.5200, L501.2300, L500.2500, L100.0100 ####[facility] [address] [place], [address] Platelet mean volume (Bld) [Entitic vol] 10.0 fL Normal 6.2-12.0 [facility] Comment on above: Performed By: #### L 501.5200, L501.2300, L500.2500, L100.0100 ####[facility] [address] [place], [address] Platelets (Bld) [#/Vol] 329 10*3/uL Normal 150-450 [facility] Comment on above: Performed By: #### L 501.5200, L501.2300, L500.2500, L100.0100 ####[facility] [address] [place], [address] RBC (Bld) [#/Vol] 4.01 10*6/uL Low 4.6-6.2 [facility] Comment on above: Performed By: #### L 501.5200, L501.2300, L500.2500, L100.0100 ####[facility] [address] [place], [address] RDW SD 44.9 fl High 35.1-43.9 [facility] Comment on above: Performed By: #### L 501.5200, L501.2300, L500.2500, L100.0100 ####[facility] [address] [place], [address] WBC (Bld) [#/Vol] 8.4 10*3/uL Normal 4.4-11.0 [facility] Comment on above: Performed By: #### L 501.5200, L501.2300, L500.2500, L100.0100 ####[facility] [address] [place], [address] Eosinophil percentageOrdered By: Lisha Talamantes on 12-15-2024 Eosinophils/100 WBC (Bld) 0.0 % 0-5 [facility] Erythrocyte distribution wid th ratioOrdered By: Lisha Talamantes on 12-15-2024 Erythrocyte distribution width (RBC) [Ratio] 13.8 % 11.6-14.6 [facility] Erythrocyte distribution wid th standard deviationOrdered By: Lisha Talamantes on 12-15-2024 Erythrocyte distribution width (RBC) [Ratio] 44.9 fl High 35.1-43.9 [facility] Hematocrit Auto (Bld) [Volum e fraction]Ordered By: Lisha Talamantes on 12-15-2024 Hematocrit (Bld) [Volume fraction] 35.6 % Low 40-54 [facility] Hemoglobin measurementOrdere d By: Lisha Talamantes on 12-15-2024 Hemoglobin (Bld) [Mass/Vol] 11.3 g/dL Low 13.0-16.5 [facility] Immature granulocytes/100 WB C Auto (Bld)Ordered By: Lisha Talamantes on 12-15-2024 Immature granulocytes/100 WBC (Bld) 0.400 % 0.0-0.9 [facility] MCV (mean corpuscular volume ) determinationOrdered By: Lisha Talamantes on 12-15-2024 MCV (RBC) [Entitic vol] 88.8 fL 80-94 [facility] Magnesiumon 12-15-2024 Magnesium [Mass/Vol] 2.0 mg/dL Normal 1.5-2.2 [facility] Comment on above: Performed By: #### L 501.5200, L501.2300, L500.2500, L100.0100 ####[facility] [address] [facility] [place] [place], [address] Magnesium measurement (mass/ volume)Ordered By: Lisha Talamantes on 12-15-2024 Magnesium (Unsp spec) [Mass/Vol] 2.0 mg/dL 1.5-2.2 [facility] Mean corpuscular hemoglobin (MCH) determinationOrdered By: Lisha Talamantes on 12-15-2024 MCH (RBC) [Entitic mass] 28.2 pg 27.0-32.0 [facility] Monocyte percentageOrdered B y: Lisha Talamantes on 12-15-2024 Monocytes/100 WBC (Bld) 6.3 % 0-10 [facility] Neutrophil percentageOrdered By: Lisha Talamantes on 12-15-2024 Neutrophils/100 WBC (Bld) 83.3 % High 47-70 [facility] Phosphoruson 12-15-2024 Phosphate [Mass/Vol] 3.3 mg/dL Normal 2.7-4.5 [facility] Comment on above: Performed By: #### L 501.5200, L501.2300, L500.2500, L100.0100 ####[facility] [address] [place], [address] Platelet countOrdered By: Sierra Talamantes on 12-15-2024 Platelets (Bld) [#/Vol] 329 10*3/uL 150-450 [facility] RBC Auto (Bld) [#/Vol]Ordere d By: Lisha Talamantes on 12-15-2024 RBC (Bld) [#/Vol] 4.01 10*6/uL Low 4.6-6.2 [facility] White blood cell (WBC) count Ordered By: Lisha Talamantes on 12-15-2024 WBC (Bld) [#/Vol] 8.4 10*3/uL 4.4-11.0 [facility] Bilirubin, totalOrdered By: Shilpa Contreras on 12-14-2024 Bilirubin [Mass/Vol] mg/dL 0.00-1.30 [facility] CBC W/Diff, Automatedon 11-18 Absolute Lymph 0.65 X10 3/uL Low 0.83-4.51 [facility] Comment on above: Performed By: #### L 300.3900, L100.0100, L500.4050 ####[facility] [address] [place], [address] Absolute Neut 3.4 X10 3/uL Normal 2.0-7.7 [facility] Comment on above: Performed By: #### L 300.3900, L100.0100, L500.4050 ####[facility] [address] [place], [address] Basophils/100 WBC (Bld) 0.2 % Normal 0-1 [facility] Comment on above: Performed By: #### L 300.3900, L100.0100, L500.4050 ####[facility] [address] [place], [address] Eosinophils/100 WBC (Bld) 0.0 % Normal 0-5 [facility] Comment on above: Performed By: #### L 300.3900, L100.0100, L500.4050 ####[facility] [address] [place], [address] Erythrocyte distribution width (RBC) [Ratio] 13.7 % Normal 11.6-14.6 [facility] Comment on above: Performed By: #### L 300.3900, L100.0100, L500.4050 ####[facility] [address] [place], [address] Hematocrit (Bld) [Volume fraction] 33.7 % Low 40-54 [facility] Comment on above: Performed By: #### L 300.3900, L100.0100, L500.4050 ####[facility] [address] [place], [address] Hemoglobin (Bld) [Mass/Vol] 10.6 g/dL Low 13.0-16.5 [facility] Comment on above: Performed By: #### L 300.3900, L100.0100, L500.4050 ####[facility] [address] [place], [address] IG% 0.200 Normal 0.0-0.9 [facility] Comment on above: Result Comment: IG% - Immature Granulocytes (promyelocytes, myelocytes andmetamyelocytes) > 1% indicates that a LEFT SHIFT is Present. Performed By: #### L 300.3900, L100.0100, L500.4050 ####[facility] [address] [place], [address] Lymphocytes/100 WBC (Bld) 15.0 % Low 19-41 [facility] Comment on above: Performed By: #### L 300.3900, L100.0100, L500.4050 ####[facility] [address] [place], [address] MCH (RBC) [Entitic mass] 27.8 pg Normal 27.0-32.0 [facility] Comment on above: Performed By: #### L 300.3900, L100.0100, L500.4050 ####[facility] [address] [place], [address] MCHC (RBC) [Mass/Vol] 31.5 g/dL Low 32-36 [facility] Comment on above: Performed By: #### L 300.3900, L100.0100, L500.4050 ####[facility] [address] [place], [address] MCV (RBC) [Entitic vol] 88.5 fL Normal 80-94 [facility] Comment on above: Performed By: #### L 300.3900, L100.0100, L500.4050 ####[facility] [address] [place], [address] Monocytes/100 WBC (Bld) 5.3 % Normal 0-10 [facility] Comment on above: Performed By: #### L 300.3900, L100.0100, L500.4050 ####[facility] [address] [place], [address] Neutrophils/100 WBC (Bld) 79.3 % High 47-70 [facility] Comment on above: Performed By: #### L 300.3900, L100.0100, L500.4050 ####[facility] [address] [place], [address] Nucleated RBC (Bld) [#/Vol] 0 10*3/uL Normal 0-5 [facility] Comment on above: Performed By: #### L 300.3900, L100.0100, L500.4050 ####[facility] [address] [place], [address] Platelet mean volume (Bld) [Entitic vol] 10.1 fL Normal 6.2-12.0 [facility] Comment on above: Performed By: #### L 300.3900, L100.0100, L500.4050 ####[facility] [address] [place], [address] Platelets (Bld) [#/Vol] 306 10*3/uL Normal 150-450 [facility] Comment on above: Performed By: #### L 300.3900, L100.0100, L500.4050 ####[facility] [address] [place], [address] RBC (Bld) [#/Vol] 3.81 10*6/uL Low 4.6-6.2 [facility] Comment on above: Performed By: #### L 300.3900, L100.0100, L500.4050 ####[facility] [address] [place], [address] RDW SD 44.5 fl High 35.1-43.9 [facility] Comment on above: Performed By: #### L 300.3900, L100.0100, L500.4050 ####[facility] [address] [place], [address] WBC (Bld) [#/Vol] 4.3 10*3/uL Low 4.4-11.0 [facility] Comment on above: Performed By: #### L 300.3900, L100.0100, L500.4050 ####[facility] [address] [place], [address] Comprehensive Metabolic Prof chetan 12-14-2024 ALK PHOS 70 U/L Normal 40-129 [facility] Comment on above: Performed By: #### L 300.3900, L100.0100, L500.4050 ####[facility] [address] [place], [address] AST [Catalytic activity/Vol] 18 U/L Normal <=37 [facility] Comment on above: Performed By: #### L 300.3900, L100.0100, L500.4050 ####[facility] [address] [place], [address] BUN/CRE 12.3 RATIO Normal 10-20 [facility] Comment on above: Performed By: #### L 300.3900, L100.0100, L500.4050 ####[facility] [address] [place], [address] Calcium [Mass/Vol] 9.5 mg/dL Normal 7.6-11.0 [facility] Comment on above: Performed By: #### L 300.3900, L100.0100, L500.4050 ####[facility] [address] [place], [address] Chloride [Moles/Vol] 105 mmol/L Normal 98-108 [facility] Comment on above: Performed By: #### L 300.3900, L100.0100, L500.4050 ####[facility] [id number] [place], [address] CO2 [Moles/Vol] 24.4 mmol/L Normal 21.0-32.0 [facility] Comment on above: Performed By: #### L 300.3900, L100.0100, L500.4050 ####[facility] [address] [place], [address] Creatinine [Mass/Vol] 1.04 mg/dL Normal 0.70-1.20 [facility] Comment on above: Performed By: #### L 300.3900, L100.0100, L500.4050 ####[facility] [id number] [place], [address] ECRCL 59.38 ml/min Normal 50-250 [facility] Comment on above: Performed By: #### L 300.3900, L100.0100, L500.4050 ####[facility] [id number] [place], [address] GAP 13 Normal 5-15 [facility] Comment on above: Performed By: #### L 300.3900, L100.0100, L500.4050 ####[facility] [address] [place], [address] GFR/1.73 sq M.predicted among non-blacks MDRD (S/P/Bld) [Vol rate/Area] 75 mL/min/{1.73_m2} Normal >60 [facility] Comment on above: Result Comment: mL/m in/1.73m2 CKD-EPI Creatinine Equation (2020) Performed By: #### L 300.3900, L100.0100, L500.4050 ####[facility] [address] [place], [address] Glucose [Mass/Vol] 129 mg/dL High 70-99 [facility] Comment on above: Performed By: #### L 300.3900, L100.0100, L500.4050 ####[facility] [address] [place], [address] Potassium [Moles/Vol] 3.8 mmol/L Normal 3.3-5.1 [facility] Comment on above: Performed By: #### L 300.3900, L100.0100, L500.4050 ####[facility] [address] [place], [address] Sodium [Moles/Vol] 143 mmol/L Normal 133-145 [facility] Comment on above: Performed By: #### L 300.3900, L100.0100, L500.4050 ####[facility] [address] [place], [address] T BILI < 0.15 Normal 0.00-1.30 [facility] Comment on above: Performed By: #### L 300.3900, L100.0100, L500.4050 ####[facility] [address] [place], [address] T PROT 6.6 g/dL Normal 5.9-8.4 [facility] Comment on above: Performed By: #### L 300.3900, L100.0100, L500.4050 ####[facility] [address] [place], [address] Urea nitrogen [Mass/Vol] 13 mg/dL Normal 4-19 [facility] Comment on above: Performed By: #### L 300.3900, L100.0100, L500.4050 ####[facility] [address] [place], [address] No Panel InformationOrdered By: Shilpa Contreras on 12-14-2024 18 U/L <38 [facility] Prothrombin Time w/INRon INR Coag (PPP) [Relative time] 1.0 {INR} Normal [facility] Comment on above: Performed By: #### L 300.3900, L100.0100, L500.4050 ####[facility] [address] [place], [address] PT Coag (PPP) [Time] 13.5 s Normal 11.7-14.9 [facility] Comment on above: Performed By: #### L 300.3900, L100.0100, L500.4050 ####[facility] [address] [place], [address] Prothrombin timeOrdered By: Shilpa Contreras on 12-14-2024 PT Coag (PPP) [Time] 13.5 s 11.7-14.9 [facility] RESPIRATORY PANEL MOLECULARo n 12-14-2024 RP PANEL Normal [facility] Comment on above: Performed By: #### M 100.638 ####[facility] [address] [place], [address] Serum globulin measurementOr dered By: Shilpa Contreras on 12-14-2024 Globulin (S) [Mass/Vol] 2.5 g/dL Normal 2.2-4.2 [facility] Comment on above: Performed By: #### L 300.3900, L100.0100, L500.4050 ####[facility] [address] [place], [address] Serum or plasma alanine saul otransferase (ALT) measurementOrdered By: Shilpa Contreras on 12-14-2024 ALT [Catalytic activity/Vol] 16 U/L Normal <=46 [facility] Comment on above: Performed By: #### L 300.3900, L100.0100, L500.4050 ####[facility] [address] [place], [address] Serum or plasma albumin luis urement (mass/volume)Ordered By: Shilpa Contreras on 12-14-2024 Albumin [Mass/Vol] 4.0 g/dL Normal 3.4-4.8 [facility] Comment on above: Performed By: #### L 300.3900, L100.0100, L500.4050 ####[facility] [address] [place], [address] Serum or plasma albumin/glob ulin mass ratioOrdered By: Shilpa Contreras on 12-14-2024 Albumin/Globulin [Mass ratio] 1.6 {ratio} Normal 0.9-2.4 [facility] Comment on above: Performed By: #### L 300.3900, L100.0100, L500.4050 ####[facility] [address] [place], [address] Serum or plasma alkaline kathleen sphatase measurementOrdered By: Shilpa Contreras on 12-14-2024 ALP [Catalytic activity/Vol] 70 U/L 40-129 [facility] Total proteinOrdered By: Aut umn White on 12-14-2024 Protein [Mass/Vol] 6.6 g/dL 5.9-8.4 [facility] Absolute lymphocyte countOrd ered By: Charis Aaron on 12-13-2024 Lymphocytes Auto (Unsp spec) [#/Vol] 1.16 10*3/uL 0.83-4.51 [facility] Absolute neutrophil countOrd ered By: Charis Walker on 12-13-2024 Neutrophils (Bld) [#/Vol] 4.0 10*3/uL 2.0-7.7 [facility] Anion gap in Serum or Plasma Ordered By: Charis Walker on 12-13-2024 Anion gap [Moles/Vol] 13 mmol/L 5- [facility] Automated lymphocyte count a s percentage of total leukocytesOrdered By: Charis Walker on 12-13-2024 Lymphocytes/100 WBC Auto (Unsp spec) 19.5 % 19-41 [facility] BUN/creatinine ratioOrdered By: Charis Walker on 12-13-2024 Urea nitrogen/Creatinine [Mass ratio] 11.0 mg/mg 10- [facility] Basic Metabolic Profile (BMP )on 12-13-2024 BUN/CRE 11.0 RATIO Normal - [facility] Comment on above: Performed By: #### L 500.2500, L100.0100 ####[facility] [address] [place], [address] Calcium [Mass/Vol] 9.7 mg/dL Normal 7.6-11.0 [facility] Comment on above: Performed By: #### L 500.2500, L100.0100 ####[facility] [address] [place], [address] Chloride [Moles/Vol] 104 mmol/L Normal 98-108 [facility] Comment on above: Performed By: #### L 500.2500, L100.0100 ####[facility] [address] [place], [address] CO2 [Moles/Vol] 24.4 mmol/L Normal 21.0-32.0 [facility] Comment on above: Performed By: #### L 500.2500, L100.0100 ####[facility] [address] [place], [address] Creatinine [Mass/Vol] 1.11 mg/dL Normal 0.70-1.20 [facility] Comment on above: Performed By: #### L 500.2500, L100.0100 ####[facility] [address] [place], [address] ECRCL 55.63 ml/min Normal 50-250 [facility] Comment on above: Performed By: #### L 500.2500, L100.0100 ####[facility] [address] [place], [address] GAP 13 Normal 5-15 [facility] Comment on above: Performed By: #### L 500.2500, L100.0100 ####[facility] [address] [place], [address] GFR/1.73 sq M.predicted among non-blacks MDRD (S/P/Bld) [Vol rate/Area] 69 mL/min/{1.73_m2} Normal >60 [facility] Comment on above: Result Comment: mL/m in/1.73m2 CKD-EPI Creatinine Equation (2020) Performed By: #### L 500.2500, L100.0100 ####[facility] [address] [place], [address] Glucose [Mass/Vol] 102 mg/dL High 70-99 [facility] Comment on above: Performed By: #### L 500.2500, L100.0100 ####[facility] [address] [place], [address] Potassium [Moles/Vol] 3.7 mmol/L Normal 3.3-5.1 [facility] Comment on above: Performed By: #### L 500.2500, L100.0100 ####[facility] [address] [place], [address] Sodium [Moles/Vol] 141 mmol/L Normal 133-145 [facility] Comment on above: Performed By: #### L 500.2500, L100.0100 ####[facility] [address] [place], [address] Urea nitrogen [Mass/Vol] 12 mg/dL Normal 4-19 [facility] Comment on above: Performed By: #### L 500.2500, L100.0100 ####[facility] [address] [place], [address] Basophil percentageOrdered B y: Remus Ungur on 12-13-2024 Basophils/100 WBC (Bld) 1.0 % 0-1 [facility] Blood cultureOrdered By: Rem us Ungur on 12-13-2024 Bacteria identified Cx Nom (Bld) No growth in 5 days. [facility] Bacteria identified Cx Nom (Bld) No growth in 5 days. [facility] CBC W/Diff, Automatedon 11-18 Absolute Lymph 1.16 X10 3/uL Normal 0.83-4.51 [facility] Comment on above: Performed By: #### L 500.2500, L100.0100 ####[facility] [address] [place], [address] Absolute Neut 4.0 X10 3/uL Normal 2.0-7.7 [facility] Comment on above: Performed By: #### L 500.2500, L100.0100 ####[facility] [address] [place], [address] Basophils/100 WBC (Bld) 1.0 % Normal 0-1 [facility] Comment on above: Performed By: #### L 500.2500, L100.0100 ####[facility] [address] [place], [address] Eosinophils/100 WBC (Bld) 3.0 % Normal 0-5 [facility] Comment on above: Performed By: #### L 500.2500, L100.0100 ####[facility] [address] [place], [address] Erythrocyte distribution width (RBC) [Ratio] 13.7 % Normal 11.6-14.6 [facility] Comment on above: Performed By: #### L 500.2500, L100.0100 ####[facility] [address] [place], [address] Hematocrit (Bld) [Volume fraction] 37.5 % Low 40-54 [facility] Comment on above: Performed By: #### L 500.2500, L100.0100 ####[facility] [address] [place], [address] Hemoglobin (Bld) [Mass/Vol] 11.5 g/dL Low 13.0-16.5 [facility] Comment on above: Performed By: #### L 500.2500, L100.0100 ####[facility] [address] [place], [address] IG% 0.300 Normal 0.0-0.9 [facility] Comment on above: Result Comment: IG% - Immature Granulocytes (promyelocytes, myelocytes andmetamyelocytes) > 1% indicates that a LEFT SHIFT is Present. Performed By: #### L 500.2500, L100.0100 ####[facility] [address] [place], [address] Lymphocytes/100 WBC (Bld) 19.5 % Normal 19-41 [facility] Comment on above: Performed By: #### L 500.2500, L100.0100 ####[facility] [address] [place], [address] MCH (RBC) [Entitic mass] 27.7 pg Normal 27.0-32.0 [facility] Comment on above: Performed By: #### L 500.2500, L100.0100 ####[facility] [address] [place], [address] MCHC (RBC) [Mass/Vol] 30.7 g/dL Low 32-36 [facility] Comment on above: Performed By: #### L 500.2500, L100.0100 ####[facility] [address] [place], [address] MCV (RBC) [Entitic vol] 90.4 fL Normal 80-94 [facility] Comment on above: Performed By: #### L 500.2500, L100.0100 ####[facility] [address] [place], [address] Monocytes/100 WBC (Bld) 8.9 % Normal 0-10 [facility] Comment on above: Performed By: #### L 500.2500, L100.0100 ####[facility] [address] [place], [address] Neutrophils/100 WBC (Bld) 67.3 % Normal 47-70 [facility] Comment on above: Performed By: #### L 500.2500, L100.0100 ####[facility] [address] [place], [address] Nucleated RBC (Bld) [#/Vol] 0 10*3/uL Normal 0-5 [facility] Comment on above: Performed By: #### L 500.2500, L100.0100 ####[facility] [address] [place], [address] Platelet mean volume (Bld) [Entitic vol] 9.7 fL Normal 6.2-12.0 [facility] Comment on above: Performed By: #### L 500.2500, L100.0100 ####[facility] [address] [place], [address] Platelets (Bld) [#/Vol] 299 10*3/uL Normal 150-450 [facility] Comment on above: Performed By: #### L 500.2500, L100.0100 ####[facility] [address] [place], [address] RBC (Bld) [#/Vol] 4.15 10*6/uL Low 4.6-6.2 [facility] Comment on above: Performed By: #### L 500.2500, L100.0100 ####[facility] [address] [place], [address] RDW SD 44.8 fl High 35.1-43.9 [facility] Comment on above: Performed By: #### L 500.2500, L100.0100 ####[facility] [address] [place], [address] WBC (Bld) [#/Vol] 5.9 10*3/uL Normal 4.4-11.0 [facility] Comment on above: Performed By: #### L 500.2500, L100.0100 ####[facility] [address] [place], [address] CO2 (BldV) [Moles/Vol]Ordere d By: Shilpa Contreras on 12-13-2024 CO2 [Moles/Vol] 28 mmol/L 23-33 [facility] Carbon dioxide, total [Moles /volume] in Central venous bloodOrdered By: Charis Walker on 12-13-2024 CO2 [Moles/Vol] 24.4 mmol/L 21.0-32.0 [facility] Chest 1 View (Portable)on Chest 1 View (Portable) Normal [facility] Chloride assayOrdered By: Ame Walker on 12-13-2024 Chloride [Moles/Vol] 104 mmol/L 98-108 [facility] Emergency Department Summary on 12-13-2024 Emergency Department Summary Normal [facility] Eosinophil percentageOrdered By: Charis Walker on 12-13-2024 Eosinophils/100 WBC (Bld) 3.0 % 0-5 [facility] Erythrocyte distribution wid th ratioOrdered By: [facility] on 12-13-2024 Erythrocyte distribution width (RBC) [Ratio] 13.7 % 11.6-14.6 [facility] Erythrocyte distribution wid th standard deviationOrdered By: [facility] on 12-13-2024 Erythrocyte distribution width (RBC) [Ratio] 44.8 fl High 35.1-43.9 [facility] Glomerular filtration rate ( GFR) estimation/1.73 sq m using serum, plasma, or whole bOrdered By: [facility] Walker on 12-13-2024 GFR/1.73 sq M.predicted among non-blacks MDRD (S/P/Bld) [Vol rate/Area] 69 mL/min/{1.73_m2} >60 [facility] Comment on above: mL/min/1.73m2 CKD-EP I Creatinine Equation (2020) H AND P Exam - [place] 12-13-2024 H&P Exam - Hospitalist Normal [place] Hematocrit Auto (Bld) [Volum e fraction]Ordered By: [facility] on 12-13-2024 Hematocrit (Bld) [Volume fraction] 37.5 % Low 40-54 [facility] Hemoglobin measurementOrdere d By: [facility] on 12-13-2024 Hemoglobin (Bld) [Mass/Vol] 11.5 g/dL Low 13.0-16.5 [facility] Immature granulocytes/100 WB C Auto (Bld)Ordered By: Charis Walker on 12-13-2024 Immature granulocytes/100 WBC (Bld) 0.300 % 0.0-0.9 [facility] Comment on above: IG% - Immature Granu locytes (promyelocytes, myelocytes and metamyelocytes) > 1% indicates that a LEFT SHIFT is Present. Influenza virus A and B and SARS-CoV-2 (COVID-19) and Respiratory syncytial virus RNAOrdered By: Barto Aaron on 12-13-2024 SARS-CoV-2 (COVID-19) RNA ALEENA+probe Ql (Unsp spec) [facility] International normalized rat io (INR) calculationOrdered By: Charis Walker on 12-13-2024 INR Coag (Bld) [Relative time] 0.9 {INR} [facility] L509.7001on 12-13-2024 Procalcitonin 0.05 ng/mL Normal <=0.10 [facility] Comment on above: Result Comment: Inte rpretation:<0.10-0.25 ng/mL: Antibiotic therapy discouraged. Bacterialinfection unlikely.0.25-0.50 ng/mL: Antibiotic therapy encouraged. Bacterialinfection possible.>0.50 ng/mL: Antibiotic therapy strongly encouraged.Suggestive of presence of bacterial infection.PCT should always be interpreted in the clinical context ofthe patient. Therefore, clinicians should use the PCTresults in conjunction with other laboratory findings andclinical signs of the patient. Performed By: #### L 509.7001 ####[facility] [address] [place], [place], [address] M100.678on 12-13-2024 M100.678 Pending SARS-CoV-2 (COVID 19) Negative INFLUENZA A Negative INFLUENZA B Negative RSV PCR Negative Normal [facility] Comment on above: Performed By: #### M 100.678 ####[facility] [address] [place], [address] MCV (mean corpuscular volume ) determinationOrdered By: Charis Walker on 12-13-2024 MCV (RBC) [Entitic vol] 90.4 fL 80-94 [facility] Mean corpuscular hemoglobin (MCH) determinationOrdered By: Charis Walker on 12-13-2024 MCH (RBC) [Entitic mass] 27.7 pg 27.0-32.0 [facility] Mean corpuscular hemoglobin concentration (MCHC) determinationOrdered By: Remus Walker on 12-13-2024 MCHC (RBC) [Mass/Vol] 30.7 g/dL Low 32-36 [facility] Mean platelet volume determi nationOrdered By: Charis Walker on 12-13-2024 Platelet mean volume (Bld) [Entitic vol] 9.7 fL 6.2-12.0 [facility] Monocyte percentageOrdered B y: Charis Walker on 12-13-2024 Monocytes/100 WBC (Bld) 8.9 % 0-10 [facility] Neutrophil percentageOrdered By: Charis Walker on 12-13-2024 Neutrophils/100 WBC (Bld) 67.3 % 47-70 [facility] No Panel InformationOrdered By: Shilpa Contreras on 12-13-2024 Blood Gas Sample Site Not entered [place] Blood Gas Specimen Type LASHAE [facility] Oxygen Delivery Device Cannula [place] LASHAE [facility] Not entered [facility] Cannula [facility] Nucleated red blood cell per centageOrdered By: Charis Walker on 12-13-2024 Nucleated RBC/100 WBC (Bld) [Ratio] 0 % 0-5 [facility] Platelet countOrdered By: Ame Walker on 12-13-2024 Platelets (Bld) [#/Vol] 299 10*3/uL 150-450 [facility] Potassium measurement (mass/ volume)Ordered By: Charis Walker on 12-13-2024 Potassium (Unsp spec) [Mass/Vol] 3.7 mmol/L 3.3-5.1 [facility] Procalcitonin [Mass/volume] in Serum or Plasma by ImmunoassayOrdered By: Shilpa Contreras on 12-13-2024 Procalcitonin IA [Mass/Vol] 0.05 ng/mL <0.11 [facility] Prothrombin Time w/INRon INR Coag (PPP) [Relative time] 0.9 {INR} Normal [facility] Comment on above: Performed By: #### L 300.3900 ####[facility] [address] [place], [place], [id number] PT Coag (PPP) [Time] 12.5 s Normal 11.7-14.9 [facility] Comment on above: Performed By: #### L 300.3900 ####[facility] [address] [place], [place], [id number] Prothrombin timeOrdered By: Charis Walker on 12-13-2024 PT Coag (PPP) [Time] 12.5 s 11.7-14.9 [facility] RBC Auto (Bld) [#/Vol]Ordere d By: Charis Barneskevin on 12-13-2024 RBC (Bld) [#/Vol] 4.15 10*6/uL Low 4.6-6.2 [facility] Respiratory pathogens detect ion panel by molecular detection methodOrdered By: Shilpa Contreras on 12-13-2024 Respiratory pathogens DNA and RNA panel ALEENA+probe (Resp) [facility] Serum creatinine measurement (mass/volume)Ordered By: Charis Wakler on 12-13-2024 Creatinine [Mass/Vol] 1.11 mg/dL 0.70-1.20 [facility] Serum glucose measurement (m ass/volume)Ordered By: Charis Walker on 12-13-2024 Glucose [Mass/Vol] 102 mg/dL High 70-99 [facility] Serum or plasma calcium luis urement (mass/volume)Ordered By: Charis Walker on 12-13-2024 Calcium [Mass/Vol] 9.7 mg/dL 7.6-11.0 [facility] Serum or plasma urea nitroge n measurement (mass/volume)Ordered By: Charis Walker on 12-13-2024 Urea nitrogen [Mass/Vol] 12 mg/dL 4-19 [facility] Sodium levelOrdered By: Nelson Walker on 12-13-2024 Sodium [Moles/Vol] 141 mmol/L 133-145 [facility] Venous Blood Gason 5 Blood Gas Type LASHAE Normal [facility] Comment on above: Performed By: #### L 9000.0810 ####[facility] [address] [place], [place], [id number] CO2 [Moles/Vol] 28 mmol/L Normal 23-33 [facility] Comment on above: Performed By: #### L 9000.0810 ####[facility] [address] [place], [place], [id number] FI02 4.0 Normal [facility] Comment on above: Performed By: #### L 9000.0810 ####[facility] [address] [place], [address] HCO3 (Bld) [Moles/Vol] 26 mmol/L Normal 22-26 [place] Comment on above: Performed By: #### L 9000.0810 ####[facility] [address] [place], [address] O2 Delivery Dev Cannula Normal [facility] Comment on above: Performed By: #### L 9000.0810 ####[facility] [address] [place], [address] SITE Not entered Normal [facility] Comment on above: Performed By: #### L 9000.0810 ####[facility] [address] [place], [address] VBG BE 2 mmol/L Normal -1.0-3.5 [facility] Comment on above: Performed By: #### L 9000.0810 ####[facility] [address] [place], [address] VBG pCO2 42.7 mmHg Normal 41-51 [facility] Comment on above: Performed By: #### L 9000.0810 ####[facility] [address] [place], [address] VBG pH 7.40 Normal 7.32-7.42 [facility] Comment on above: Performed By: #### L 9000.0810 ####[facility] [address] [place], [address] VBG PO2 56 mmHg High 25-40 [facility] Comment on above: Performed By: #### L 9000.0810 ####[facility] [address] [place], [address] VBG SO2 89 High 50-70 [facility] Comment on above: Performed By: #### L 9000.0810 ####[facility] [address] [place], [address] Venous blood base excess arlyn surementOrdered By: Shilpa Contreras on 12-13-2024 Base excess Calc (BldV) [Moles/Vol] 2 mmol/L -1.0-3.5 [facility] Venous blood bicarbonate arlyn surementOrdered By: Shilpa Contreras on 12-13-2024 HCO3 (Bld) [Moles/Vol] 26 mmol/L 22-26 [place] Venous blood oxygen saturati on measurementOrdered By: Shilpa Contreras on 12-13-2024 Oxygen saturation in Blood 89 % High 50-70 [facility] Venous blood pH measurementO rdered By: Shilpa Contreras on 12-13-2024 pH (BldV) 7.40 [pH] 7.32-7.42 [facility] Venous blood partial pressur e of carbon dioxide measurementOrdered By: Shilpa Contreras on 12-13-2024 CO2 (BldV) [Partial pressure] 42.7 mm[Hg] 41-51 [facility] Venous blood partial pressur e of oxygen measurementOrdered By: Shilpa Contreras on 12-13-2024 Oxygen (BldV) [Partial pressure] 56 mm[Hg] High 25-40 [facility] White blood cell (WBC) count Ordered By: Charis Walker on 12-13-2024 WBC (Bld) [#/Vol] 5.9 10*3/uL 4.4-11.0 [facility] CBC W Auto Differential pane l (Bld)on 12-12-2024 Basophils (Bld) [#/Vol] 0.09 10*3/uL [facility] Basophils/100 WBC (Bld) 1.5 % [facility] Differential cell count method Nom (Bld) Auto [facility] Eosinophils (Bld) [#/Vol] 0.22 10*3/uL [facility] Eosinophils/100 WBC (Bld) 3.7 % [facility] Erythrocyte distribution width (RBC) [Ratio] 13.8 % 11.5 - 15.0 % [facility] Hematocrit (Bld) [Volume fraction] 38.3 % Low 39.0 - 51.0 % [facility] Hemoglobin (Bld) [Mass/Vol] 11.7 g/dL Low 13.0 - 17.0 g/dL [facility] Immature granulocytes (Bld) [#/Vol] NINF [facility] Immature granulocytes/100 WBC (Bld) 0.3 % [facility] Interpretation and review of laboratory results Abnormal [facility] Lymphocytes (Bld) [#/Vol] 0.8 10*3/uL Low [facility] Lymphocytes/100 WBC (Bld) 13.6 % [facility] MCH (RBC) [Entitic mass] 27.9 pg 26. 0 - 34.0 pg [facility] MCHC (RBC) [Mass/Vol] 30.5 g/dL 30.5 - 36.0 g/dL [facility] MCV (RBC) [Entitic vol] 91.4 fL 80.0 - 100.0 fL [facility] Monocytes (Bld) [#/Vol] 0.51 10*3/uL [facility] Monocytes/100 WBC (Bld) 8.7 % [facility] Neutrophils (Bld) [#/Vol] 4.25 10*3/uL [facility] Neutrophils/100 WBC (Bld) 72.2 % [facility] Nucleated RBC (Bld) [#/Vol] NINF [facility] Nucleated RBC/100 WBC (Bld) [Ratio] 0 % /100 WBC [facility] Platelet mean volume (Bld) [Entitic vol] 10.5 fL 9.0 - 12.7 fL [facility] Platelets (Bld) [#/Vol] 310 10*3/uL [facility] RBC (Bld) [#/Vol] 4.19 10*6/uL Low 4.20 - 6.0 0 m/uL [facility] WBC (Bld) [#/Vol] 5.89 10*3/uL [facility] Anion gap in Serum or Plasma Ordered By: Carla Prather on 12-02-2024 Anion gap [Moles/Vol] 11 mmol/L 10-31 [facility] BUN/creatinine ratioOrdered By: Carla Prather on 12-02-2024 Urea nitrogen/Creatinine [Mass ratio] 23.5 mg/mg High 04-07 [facility] Basic Metabolic Profile (BMP )on 12-02-2024 BUN/CRE 23.5 RATIO High 10-20 [facility] Comment on above: Order Comment: 307.2 Performed By: #### L 100.0500, L500.2500, L506.1001 ####[facility] [address] [place], [address] Calcium [Mass/Vol] 9.4 mg/dL Normal 7.6-11.0 [facility] Comment on above: Order Comment: 307.2 Performed By: #### L 100.0500, L500.2500, L506.1001 ####[facility] [address] [place], [address] Chloride [Moles/Vol] 104 mmol/L Normal 98-108 [facility] Comment on above: Order Comment: 307.2 Performed By: #### L 100.0500, L500.2500, L506.1001 ####[facility] [address] [place], [address] CO2 [Moles/Vol] 25.5 mmol/L Normal 21.0-32.0 [facility] Comment on above: Order Comment: 307.2 Performed By: #### L 100.0500, L500.2500, L506.1001 ####[facility] [address] [place], [address] Creatinine [Mass/Vol] 1.21 mg/dL High 0.70-1.20 [facility] Comment on above: Order Comment: 307.2 Performed By: #### L 100.0500, L500.2500, L506.1001 ####[facility] [address] [place], [address] GAP 11 Normal 5-15 [facility] Comment on above: Order Comment: 307.2 Performed By: #### L 100.0500, L500.2500, L506.1001 ####[facility] [address] [place], [address] GFR/1.73 sq M.predicted among non-blacks MDRD (S/P/Bld) [Vol rate/Area] 62 mL/min/{1.73_m2} Normal >60 [facility] Comment on above: Order Comment: 307.2 Result Comment: mL/m in/1.73m2 CKD-EPI Creatinine Equation (2020) Performed By: #### L 100.0500, L500.2500, L506.1001 ####[facility] [address] [place], [address] Glucose [Mass/Vol] 86 mg/dL Normal 70-99 [facility] Comment on above: Order Comment: 307.2 Performed By: #### L 100.0500, L500.2500, L506.1001 ####[facility] [address] [place], [address] Potassium [Moles/Vol] 4.1 mmol/L Normal 3.3-5.1 [facility] Comment on above: Order Comment: 307.2 Performed By: #### L 100.0500, L500.2500, L506.1001 ####[facility] [address] [place], [address] Sodium [Moles/Vol] 141 mmol/L Normal 133-145 [facility] Comment on above: Order Comment: 307.2 Performed By: #### L 100.0500, L500.2500, L506.1001 ####[facility] [address] [place], [address] Urea nitrogen [Mass/Vol] 28 mg/dL High 4-19 [facility] Comment on above: Order Comment: 307.2 Performed By: #### L 100.0500, L500.2500, L506.1001 ####[facility] [address] [place], [address] CBC-Complete Blood Cnt No Di ffon 12-02-2024 Erythrocyte distribution width (RBC) [Ratio] 13.2 % Normal 11.6-14.6 [facility] Comment on above: Order Comment: 307.2 Performed By: #### L 100.0500, L500.2500, L506.1001 ####[facility] [address] [place], [address] Hematocrit (Bld) [Volume fraction] 35.2 % Low 40-54 [facility] Comment on above: Order Comment: 307.2 Performed By: #### L 100.0500, L500.2500, L506.1001 ####[facility] [address] [place], [address] Hemoglobin (Bld) [Mass/Vol] 11.1 g/dL Low 13.0-16.5 [facility] Comment on above: Order Comment: 307.2 Performed By: #### L 100.0500, L500.2500, L506.1001 ####[facility] [address] [place], [address] MCH (RBC) [Entitic mass] 28.6 pg Normal 27.0-32.0 [facility] Comment on above: Order Comment: 307.2 Performed By: #### L 100.0500, L500.2500, L506.1001 ####[facility] [address] [place], [address] MCHC (RBC) [Mass/Vol] 31.5 g/dL Low 32-36 [facility] Comment on above: Order Comment: 307.2 Performed By: #### L 100.0500, L500.2500, L506.1001 ####[facility] [address] [place], [address] MCV (RBC) [Entitic vol] 90.7 fL Normal 80-94 [facility] Comment on above: Order Comment: 307.2 Performed By: #### L 100.0500, L500.2500, L506.1001 ####[facility] [address] [place], [address] Platelet mean volume (Bld) [Entitic vol] 10.2 fL Normal 6.2-12.0 [facility] Comment on above: Order Comment: 307.2 Performed By: #### L 100.0500, L500.2500, L506.1001 ####[facility] [address] [place], [address] Platelets (Bld) [#/Vol] 314 10*3/uL Normal 150-450 [facility] Comment on above: Order Comment: 307.2 Performed By: #### L 100.0500, L500.2500, L506.1001 ####[facility] [address] [place], [address] RBC (Bld) [#/Vol] 3.88 10*6/uL Low 4.6-6.2 [facility] Comment on above: Order Comment: 307.2 Performed By: #### L 100.0500, L500.2500, L506.1001 ####[facility] [address] [place], [address] RDW SD 43.6 fl Normal 35.1-43.9 [facility] Comment on above: Order Comment: 307.2 Performed By: #### L 100.0500, L500.2500, L506.1001 ####[facility] [address] [place], [address] WBC (Bld) [#/Vol] 5.1 10*3/uL Normal 4.4-11.0 [facility] Comment on above: Order Comment: 307.2 Performed By: #### L 100.0500, L500.2500, L506.1001 ####[facility] [address] [place], [address] Carbon dioxide, total [Moles /volume] in Central venous bloodOrdered By: Carla Prather on 12-02-2024 CO2 [Moles/Vol] 25.5 mmol/L 21.0-32.0 [facility] Chloride assayOrdered By: Wilfredo Prather on 12-02-2024 Chloride [Moles/Vol] 104 mmol/L 98-108 [facility] Erythrocyte distribution wid th ratioOrdered By: Carla Prather on 12-02-2024 Erythrocyte distribution width (RBC) [Ratio] 13.2 % 11.6-14.6 [facility] Erythrocyte distribution wid th standard deviationOrdered By: Carla Prather on 12-02-2024 Erythrocyte distribution width (RBC) [Ratio] 43.6 fl 35.1-43.9 [facility] Glomerular filtration rate ( GFR) estimation/1.73 sq m using serum, plasma, or whole bOrdered By: Carla Prather on 12-02-2024 GFR/1.73 sq M.predicted among non-blacks MDRD (S/P/Bld) [Vol rate/Area] 62 mL/min/{1.73_m2} >60 [facility] Comment on above: mL/min/1.73m2 CKD-EP I Creatinine Equation (2020) Hematocrit Auto (Bld) [Volum e fraction]Ordered By: Carla Prather on 12-02-2024 Hematocrit (Bld) [Volume fraction] 35.2 % Low 40-54 [facility] Hemoglobin measurementOrdere d By: Carla Prather on 12-02-2024 Hemoglobin (Bld) [Mass/Vol] 11.1 g/dL Low 13.0-16.5 [facility] MCV (mean corpuscular volume ) determinationOrdered By: Carla Prather on 12-02-2024 MCV (RBC) [Entitic vol] 90.7 fL 80-94 [facility] Mean corpuscular hemoglobin (MCH) determinationOrdered By: Carla Prather on 12-02-2024 MCH (RBC) [Entitic mass] 28.6 pg 27.0-32.0 [facility] Mean corpuscular hemoglobin concentration (MCHC) determinationOrdered By: Carla Prather on 12-02-2024 MCHC (RBC) [Mass/Vol] 31.5 g/dL Low 32-36 [facility] Mean platelet volume determi nationOrdered By: Carla Prather on 12-02-2024 Platelet mean volume (Bld) [Entitic vol] 10.2 fL 6.2-12.0 [facility] Platelet countOrdered By: Wilfredo Prather on 12-02-2024 Platelets (Bld) [#/Vol] 314 10*3/uL 150-450 [facility] Potassium measurement (mass/ volume)Ordered By: Carla Prather on 12-02-2024 Potassium (Unsp spec) [Mass/Vol] 4.1 mmol/L 3.3-5.1 [facility] RBC Auto (Bld) [#/Vol]Ordere d By: Carla Prather on 12-02-2024 RBC (Bld) [#/Vol] 3.88 10*6/uL Low 4.6-6.2 [facility] Serum creatinine measurement (mass/volume)Ordered By: Carla Prather on 12-02-2024 Creatinine [Mass/Vol] 1.21 mg/dL High 0.70-1.20 [facility] Serum glucose measurement (m ass/volume)Ordered By: Carla Prather on 12-02-2024 Glucose [Mass/Vol] 86 mg/dL 70-99 [facility] Serum or plasma calcium luis urement (mass/volume)Ordered By: Carla Prather on 12-02-2024 Calcium [Mass/Vol] 9.4 mg/dL 7.6-11.0 [facility] Serum or plasma urea nitroge n measurement (mass/volume)Ordered By: Carla Prather on 12-02-2024 Urea nitrogen [Mass/Vol] 28 mg/dL High 4-19 [facility] Sodium levelOrdered By: Luca Prather on 12-02-2024 Sodium [Moles/Vol] 141 mmol/L 133-145 [facility] Vitamin D,25 Hydroxyon 12-02 Vitamin D 25-OH 46.6 ng/mL Normal 30-100 [facility] Comment on above: Order Comment: 307.2 Result Comment: Teri min D StatusDeficiency: <20 ng/mL (50nmol/L)Insufficiency: 20-30 ng/mL (50-75 nmol/L)Sufficiency: 30-100 ng/mL (75-250 nmol/L)Toxicity: >100 ng/mL (>250 nmol/L) Performed By: #### L 100.0500, L500.2500, L506.1001 ####[facility] [address] [place], [address] White blood cell (WBC) count Ordered By: Carla Prather on 12-02-2024 WBC (Bld) [#/Vol] 5.1 10*3/uL 4.4-11.0 [facility] Calculated very low density lipoprotein (VLDL) cholesterol measurementOrdered By: Carla Prather on 11-05-2024 Calculated very low density lipoprotein (VLDL) cholesterol measurement 13 mg/dL 5-40 [facility] LDL calc ser/plasOrdered By: Carla Prather on 11-05-2024 Cholesterol in LDL [Mass/Vol] 63 mg/dL [facility] Comment on above: Ywyujlufoj=923-842 m g/dL & Higher Mcec=917 mg/dL or greater Lipid Profileon 11-05-2024 CHOL:HDL 2.18 Normal [facility] Comment on above: Order Comment: 307.2 Performed By: #### L 500.4100, L506.1001 ####[facility] [address] [place], [address] Cholesterol [Mass/Vol] 140 mg/dL Normal <=200 [place] Comment on above: Order Comment: 307.2 Result Comment: Chol esterol level, Desirable <200 mg/dLBorderline high cholesterol 200-239 mg/dLHigh cholesterol >=240 mg/dLRecommendations of the NCEP Adult Treatment Panel for thefollowing risk-cutoff thresholds for the [place] Americanpopulation. Performed By: #### L 500.4100, L506.1001 ####[facility] [address] [place], [address] Cholesterol in HDL [Mass/Vol] 64 mg/dL Normal [facility] Comment on above: Order Comment: 307.2 Result Comment: Yasmin onal Cholesterol Education Program (NCEP) guidelines:<40 mg/dL: Low HDL-cholesterol (major risk factor for CHD)>= 60 mg/dL: High HDL-cholesterol (negative risk factor forCHD)HDL-cholesterol is affected by a number of factors, e.g.smoking, exercise, hormones, sex and age. Performed By: #### L 500.4100, L506.1001 ####[facility] [address] [place], [address] Cholesterol in LDL [Mass/Vol] 63 mg/dL Normal [facility] Comment on above: Order Comment: 307.2 Result Comment: Bord mwarwp=822-750 mg/dL Higher Rsxm=625 mg/dL or greater Performed By: #### L 500.4100, L506.1001 ####[facility] [address] [place], [address] Cholesterol in VLDL [Mass/Vol] 13 mg/dL Normal 5-40 [facility] Comment on above: Order Comment: 307.2 Performed By: #### L 500.4100, L506.1001 ####[facility] [address] [place], [address] Triglyceride [Mass/Vol] 63 mg/dL Normal [facility] Comment on above: Order Comment: 307.2 Result Comment: The drugs N-Acetylcysteine and Metamizole may falselydepress this assay.Normal range: <150 mg/dLBorderline High: 150-199 mg/dLHigh: 200-499 mg/dLVery High: >500 mg/dL Performed By: #### L 500.4100, L506.1001 ####[facility] [address] [place], [address] Screening total cholesterol/ high density lipoprotein (HDL) cholesterol ratioOrdered By: Carla Prather on 11-05-2024 Cholesterol.total/Choles terol in HDL [Mass ratio] 2.18 {ratio} [facility] Serum or plasma cholesterol in HDL measurement (mass/volume)Ordered By: Carla Prather on 11-05-2024 Cholesterol in HDL [Mass/Vol] 64 mg/dL >40 [facility] Comment on above: National Cholesterol Education Program (NCEP) guidelines:<40 mg/dL: Low HDL-cholesterol (major risk factor for CHD)>= 60 mg/dL: High HDL-cholesterol (negative risk factor for CHD)HDL-cholesterol is affected by a number of factors, e.g. smoking, exercise, hormones, sex and age. Serum or plasma cholesterol measurement (mass/volume)Ordered By: Carla Prather on 11-05-2024 Cholesterol [Mass/Vol] 140 mg/dL <201 [facility] Comment on above: Cholesterol level, D esirable <200 mg/dLBorderline high cholesterol 200-239 mg/dLHigh cholesterol >=240 mg/dLRecommendations of the NCEP Adult Treatment Panel for the following risk-cutoff thresholds for the [place] population. Triglycerides measurementOrd ered By: Carla Prather on 11-05-2024 Triglyceride [Mass/Vol] 63 mg/dL <199 [facility] Comment on above: The drugs N-Acetylcy steine and Metamizole may falsely depress this assay. Normal range: <150 mg/dLBorderline High: 150-199 mg/dLHigh: 200-499 mg/dLVery High: >500 mg/dL Vitamin D,25 Hydroxyon 11-05 Vitamin D 25-OH 51.2 ng/mL Normal 30-100 [facility] Comment on above: Order Comment: 307.2 Result Comment: Teri min D StatusDeficiency: <20 ng/mL (50nmol/L)Insufficiency: 20-30 ng/mL (50-75 nmol/L)Sufficiency: 30-100 ng/mL (75-250 nmol/L)Toxicity: >100 ng/mL (>250 nmol/L) Performed By: #### L 500.4100, L506.1001 ####[facility] [address] [place], [address] Lipid Profileon 11-04-2024 CHOL Normal <=200 [facility] Comment on above: Order Comment: 307-2 Result Comment: MICHOACANO ENT REFUSED-NOTFIED NURSE Performed By: #### L 500.4100 ####[facility] [address] [place], [address] CHOL:HDL Normal [facility] Comment on above: Order Comment: 307-2 Result Comment: MICHOACANO ENT REFUSED-NOTFIED NURSE Performed By: #### L 500.4100 ####[facility] [address] [place], [address] CLDL Normal [facility] Comment on above: Order Comment: 307-2 Result Comment: MICHOACANO ENT REFUSED-NOTFIED NURSE Performed By: #### L 500.4100 ####[facility] [address] [place], [address] HDL Normal [facility] Comment on above: Order Comment: 307-2 Result Comment: MICHOACANO ENT REFUSED-NOTFIED NURSE Performed By: #### L 500.4100 ####[facility] [address] [place], [address] TRIG Normal [facility] Comment on above: Order Comment: 307- Result Comment: MICHOACANO ENT REFUSED-NOTFIED NURSE Performed By: #### L 500.4100 ####[facility] [address] [place], [address] VLDL Normal 5-40 [facility] Comment on above: Order Comment: 307-2 Result Comment: MICHOACANO ENT REFUSED-NOTFIED NURSE Performed By: #### L 500.4100 ####[facility] [address] [place], [address] Carbamazepine (Tegretol)on 0 10-16-2024 CARBAMAZEPINE 7.1 ug/mL Normal 4.0-12.0 [facility] Comment on above: Order Comment: 300 Performed By: #### L 501.7900 ####[facility] [address] [place], [address] Serum or plasma carbamazepin e level (mass/volume)Ordered By: Carla Prather on 10-16-2024 carBAMazepine [Mass/Vol] 7.1 ug/mL 4.0-12.0 [facility] Urine Cultureon 09-08-2024 URC Normal [facility] Comment on above: Performed By: #### M 100.2200, L400.0001 ####[facility] [address] [place], [address] Anion gap in Serum or Plasma Ordered By: Celia Toribio on 09-02-2024 Anion gap [Moles/Vol] 11 mmol/L 5-15 [facility] BUN/creatinine ratioOrdered By: Celia Toribio on 09-02-2024 Urea nitrogen/Creatinine [Mass ratio] 27.0 mg/mg High 10-20 [facility] Basic Metabolic Profile (BMP )on 09-02-2024 BUN/CRE 27.0 RATIO High - [facility] Comment on above: Performed By: #### L 100.0100, L500.2500 ####[facility] [address] [place], [address] Calcium [Mass/Vol] 9.2 mg/dL Normal 7.6-11.0 [facility] Comment on above: Performed By: #### L 100.0100, L500.2500 ####[facility] [address] [place], [address] Chloride [Moles/Vol] 106 mmol/L Normal 98-108 [facility] Comment on above: Performed By: #### L 100.0100, L500.2500 ####[facility] [address] [place], [address] CO2 [Moles/Vol] 20.8 mmol/L Low 21.0-32.0 [facility] Comment on above: Performed By: #### L 100.0100, L500.2500 ####[facility] [address] [place], [address] Creatinine [Mass/Vol] 1.22 mg/dL High 0.70-1.20 [facility] Comment on above: Performed By: #### L 100.0100, L500.2500 ####[facility] [address] [place], [address] ECRCL 50.54 ml/min Normal 50-250 [facility] Comment on above: Performed By: #### L 100.0100, L500.2500 ####[facility] [address] [place], [address] GAP 11 Normal 5-15 [facility] Comment on above: Performed By: #### L 100.0100, L500.2500 ####[facility] [address] [place], [address] GFR/1.73 sq M.predicted among non-blacks MDRD (S/P/Bld) [Vol rate/Area] 62 mL/min/{1.73_m2} Normal >60 [facility] Comment on above: Result Comment: mL/m in/1.73m2 CKD-EPI Creatinine Equation (2020) Performed By: #### L 100.0100, L500.2500 ####[facility] [address] [place], [address] Glucose [Mass/Vol] 99 mg/dL Normal 70-99 [facility] Comment on above: Performed By: #### L 100.0100, L500.2500 ####[facility] [address] [place], [address] Potassium [Moles/Vol] 4.0 mmol/L Normal 3.3-5.1 [facility] Comment on above: Performed By: #### L 100.0100, L500.2500 ####[facility] [address] [place], [address] Sodium [Moles/Vol] 138 mmol/L Normal 133-145 [facility] Comment on above: Performed By: #### L 100.0100, L500.2500 ####[facility] [address] [place], [address] Urea nitrogen [Mass/Vol] 33 mg/dL High 4-19 [facility] Comment on above: Performed By: #### L 100.0100, L500.2500 ####[facility] [address] [place], [address] CBC W/Diff, Automatedon - Absolute Neut Normal 2.0-7.7 [facility] Comment on above: Result Comment: Canc elled via OM: MD Ordered Performed By: #### L 100.0100, L500.2500 ####[facility] [address] [place], [address] HCT Normal 40-54 [facility] Comment on above: Result Comment: Canc elled via OM: MD Ordered Performed By: #### L 100.0100, L500.2500 ####[facility] [address] [place], [address] HGB Normal 13.0-16.5 [facility] Comment on above: Result Comment: Canc elled via OM: MD Ordered Performed By: #### L 100.0100, L500.2500 ####[facility] [address] [place], [address] MCH Normal 27.0-32.0 [facility] Comment on above: Result Comment: Canc elled via OM: MD Ordered Performed By: #### L 100.0100, L500.2500 ####[facility] [address] [place], [address] MCHC Normal 32-36 [facility] [facility] Comment on above: Result Comment: Canc elled via OM: MD Ordered Performed By: #### L 100.0100, L500.2500 ####[facility] [address] [place], [address] MCV Normal 80-94 [facility] Comment on above: Result Comment: Canc elled via OM: MD Ordered Performed By: #### L 100.0100, L500.2500 ####[facility] [address] [place], [address] NEUT% Normal 47-70 [facility] Comment on above: Result Comment: Canc elled via OM: MD Ordered Performed By: #### L 100.0100, L500.2500 ####[facility] [address] [place], [address] PLT Normal 150-450 [facility] Comment on above: Result Comment: Canc elled via OM: MD Ordered Performed By: #### L 100.0100, L500.2500 ####[facility] [address] [place], [address] RBC Normal 4.6-6.2 [facility] Comment on above: Result Comment: Canc elled via OM: MD Ordered Performed By: #### L 100.0100, L500.2500 ####[facility] [address] [place], [address] RDW CV Normal 11.6-14.6 [facility] Comment on above: Result Comment: Canc elled via OM: MD Ordered Performed By: #### L 100.0100, L500.2500 ####[facility] [address] [place], [address] RDW SD Normal 35.1-43.9 [facility] Comment on above: Result Comment: Canc elled via OM: MD Ordered Performed By: #### L 100.0100, L500.2500 ####[facility] [address] [place], [address] WBC Normal 4.4-11.0 [facility] Comment on above: Result Comment: Canc elled via OM: Ordered Performed By: #### L 100.0100, L500.2500 ####[facility] [address] [place], [place], [address] Carbon dioxide, total [Moles /volume] in Central venous bloodOrdered By: Celia Toribio on 09-02-2024 CO2 [Moles/Vol] 20.8 mmol/L Low 21.0-32.0 [facility] Chloride assayOrdered By: Yariel Toribio on 09-02-2024 Chloride [Moles/Vol] 106 mmol/L 98-108 [facility] Estimation of creatinine zeke aranceOrdered By: Celia Toribio on 09-02-2024 Estimated Creatinine Clearance Calc 50.54 ml/min 50-250 [facility] GFR/1.73 sq M.predicted gisella g non-blacks MDRD (S/P/Bld) [Vol rate/Area]Ordered By: Celia Toribio on 09-02-2024 Estimated GFR (MDRD) Non-Af Amer 62 >60 [facility] Comment on above: mL/min/1.73m2 CKD-EP I Creatinine Equation (2020) Glomerular filtration rate ( GFR) estimation/1.73 sq m using serum, plasma, or whole bOrdered By: Celia Toribio on 09-02-2024 GFR/1.73 sq M.predicted among non-blacks MDRD (S/P/Bld) [Vol rate/Area] 62 mL/min/{1.73_m2} >60 [facility] Comment on above: mL/min/1.73m2 CKD-EP I Creatinine Equation (2020) Potassium (Unsp spec) [Mass/ Vol]Ordered By: Celia Toribio on 09-02-2024 Potassium [Moles/Vol] 4.0 mmol/L 3.3-5.1 [facility] Potassium measurement (mass/ volume)Ordered By: Celia Toribio on 09-02-2024 Potassium (Unsp spec) [Mass/Vol] 4.0 mmol/L 3.3-5.1 [facility] Serum creatinine measurement (mass/volume)Ordered By: Celia Toribio on 09-02-2024 Creatinine [Mass/Vol] 1.22 mg/dL High 0.70-1.20 [facility] Serum glucose measurement (m ass/volume)Ordered By: Celia Toribio on 09-02-2024 Glucose [Mass/Vol] 99 mg/dL 70-99 [facility] Serum or plasma calcium luis urement (mass/volume)Ordered By: Celia Torbiio on 09-02-2024 Calcium [Mass/Vol] 9.2 mg/dL 7.6-11.0 [facility] Serum or plasma urea nitroge n measurement (mass/volume)Ordered By: Celia Toribio on 09-02-2024 Urea nitrogen [Mass/Vol] 33 mg/dL High 4-19 [facility] Sodium levelOrdered By: Rigoberto Toribio on 09-02-2024 Sodium [Moles/Vol] 138 mmol/L 133-145 [facility] Absolute lymphocyte countOrd ered By: Celia Toribio on 09-01-2024 Lymphocytes Auto (Unsp spec) [#/Vol] 1.45 10*3/uL 0.83-4.51 [facility] Absolute neutrophil countOrd ered By: Celia Toribio on 09-01-2024 Neutrophils (Bld) [#/Vol] 4.9 10*3/uL 2.0-7.7 [facility] Automated lymphocyte count a s percentage of total leukocytesOrdered By: Celia Toribio on 09-01-2024 Lymphocytes/100 WBC Auto (Unsp spec) 20.9 % 19-41 [facility] Basic Metabolic Profile (BMP )on 09-01-2024 BUN/CRE 26.8 RATIO High 10-20 [facility] Comment on above: Order Comment: PT RE FUSED REPORTED TO ОЛЕГ STORY. ОЛЕГ STORY SAID SHE WOULDTRY TO DRAW. Performed By: #### L 500.2500 ####[facility] [address] [place], [place], [id number] Calcium [Mass/Vol] 9.6 mg/dL Normal 7.6-11.0 [facility] Comment on above: Order Comment: PT RE FUSED REPORTED TO ОЛЕГ STORY. ОЛЕГ STORY SAID SHE WOULDTRY TO DRAW. Performed By: #### L 500.2500 ####[facility] [address] [place], [address] Chloride [Moles/Vol] 102 mmol/L Normal 98-108 [facility] Comment on above: Order Comment: PT RE FUSED REPORTED TO ОЛЕГ STORY. RN JEZ SAID SHE WOULDTRY TO DRAW. Performed By: #### L 500.2500 ####[facility] [address] [place], [address] CO2 [Moles/Vol] 21.9 mmol/L Normal 21.0-32.0 [facility] Comment on above: Order Comment: PT RE FUSED REPORTED TO RN JEZ. RN JEZ SAID SHE WOULDTRY TO DRAW. Performed By: #### L 500.2500 ####[facility] [address] [place], [address] Creatinine [Mass/Vol] 1.44 mg/dL High 0.70-1.20 [facility] Comment on above: Order Comment: PT RE FUSED REPORTED TO ОЛЕГ STORY. RN JZE SAID SHE WOULDTRY TO DRAW. Performed By: #### L 500.2500 ####[facility] [address] [place], [address] ECRCL 42.38 ml/min Low 50-250 [facility] Comment on above: Order Comment: PT RE FUSED REPORTED TO ОЛЕГ STORY. ОЛЕГ STORY SAID SHE WOULDTRY TO DRAW. Performed By: #### L 500.2500 ####[facility] [address] [place], [address] GAP 13 Normal 5-15 [facility] Comment on above: Order Comment: PT RE FUSED REPORTED TO ОЛЕГ STORY. RN JEZ SAID SHE WOULDTRY TO DRAW. Performed By: #### L 500.2500 ####[facility] [address] [place], [address] GFR/1.73 sq M.predicted among non-blacks MDRD (S/P/Bld) [Vol rate/Area] 51 mL/min/{1.73_m2} Low >60 [facility] Comment on above: Order Comment: PT RE FUSED REPORTED TO RN JEZ. RN JEZ SAID SHE WOULDTRY TO DRAW. Result Comment: mL/m in/1.73m2 CKD-EPI Creatinine Equation (2020) Performed By: #### L 500.2500 ####[facility] [address] [place], [address] Glucose [Mass/Vol] 118 mg/dL High 70-99 [facility] Comment on above: Order Comment: PT RE FUSED REPORTED TO RN JEZ. RN JEZ SAID SHE WOULDTRY TO DRAW. Performed By: #### L 500.2500 ####[facility] [address] [place], [address] Potassium [Moles/Vol] 4.1 mmol/L Normal 3.3-5.1 [facility] Comment on above: Order Comment: PT RE FUSED REPORTED TO RN JEZ. RN JEZ SAID SHE WOULDTRY TO DRAW. Performed By: #### L 500.2500 ####[facility] [address] [place], [address] Sodium [Moles/Vol] 137 mmol/L Normal 133-145 [facility] Comment on above: Order Comment: PT RE FUSED REPORTED TO RN JEZ. RN JEZ SAID SHE WOULDTRY TO DRAW. Performed By: #### L 500.2500 ####[facility] [address] [place], [address] Urea nitrogen [Mass/Vol] 39 mg/dL High 4-19 [facility] Comment on above: Order Comment: PT RE FUSED REPORTED TO RN JEZ. RN JEZ SAID SHE WOULDTRY TO DRAW. Performed By: #### L 500.2500 ####[facility] [address] [place], [address] BUN/CRE 30.2 RATIO High 10-20 [facility] Comment on above: Performed By: #### L 100.0100, L500.2500 ####[facility] [address] [place], [address] Calcium [Mass/Vol] 9.7 mg/dL Normal 7.6-11.0 [facility] Comment on above: Performed By: #### L 100.0100, L500.2500 ####[facility] [address] [place], [address] Chloride [Moles/Vol] 103 mmol/L Normal 98-108 [facility] Comment on above: Performed By: #### L 100.0100, L500.2500 ####[facility] [address] [place], [address] CO2 [Moles/Vol] 19.4 mmol/L Low 21.0-32.0 [facility] Comment on above: Performed By: #### L 100.0100, L500.2500 ####[facility] [address] [place], [address] Creatinine [Mass/Vol] 1.33 mg/dL High 0.70-1.20 [facility] Comment on above: Performed By: #### L 100.0100, L500.2500 ####[facility] [address] [place], [address] ECRCL 45.89 ml/min Low 50-250 [facility] Comment on above: Performed By: #### L 100.0100, L500.2500 ####[facility] [address] [place], [address] GAP 16 High 5-15 [facility] Comment on above: Performed By: #### L 100.0100, L500.2500 ####[facility] [address] [place], [address] GFR/1.73 sq M.predicted among non-blacks MDRD (S/P/Bld) [Vol rate/Area] 56 mL/min/{1.73_m2} Low >60 [facility] Comment on above: Result Comment: mL/m in/1.73m2 CKD-EPI Creatinine Equation (2020) Performed By: #### L 100.0100, L500.2500 ####[facility] [address] [place], [address] Glucose [Mass/Vol] 83 mg/dL Normal 70-99 [facility] Comment on above: Performed By: #### L 100.0100, L500.2500 ####[facility] [address] [place], [address] Potassium [Moles/Vol] 3.8 mmol/L Normal 3.3-5.1 [facility] Comment on above: Performed By: #### L 100.0100, L500.2500 ####[facility] [address] [place], [address] Sodium [Moles/Vol] 139 mmol/L Normal 133-145 [facility] Comment on above: Performed By: #### L 100.0100, L500.2500 ####[facility] [address] [place], [address] Urea nitrogen [Mass/Vol] 40 mg/dL High 4-19 [facility] Comment on above: Performed By: #### L 100.0100, L500.2500 ####[facility] [address] [place], [address] Basophil percentageOrdered B y: Celia Toribio on 09-01-2024 Basophils/100 WBC (Bld) 1.0 % 0-1 [facility] CBC W/Diff, Automatedon 08-17 Absolute Lymph 1.45 X10 3/uL Normal 0.83-4.51 [facility] Comment on above: Performed By: #### L 100.0100 ####[facility] [address] [place], [address] Absolute Neut 4.9 X10 3/uL Normal 2.0-7.7 [facility] Comment on above: Performed By: #### L 100.0100 ####[facility] [address] [place], [address] Basophils/100 WBC (Bld) 1.0 % Normal 0-1 [facility] Comment on above: Performed By: #### L 100.0100 ####[facility] [address] [place], [address] Eosinophils/100 WBC (Bld) 0.4 % Normal 0-5 [facility] Comment on above: Performed By: #### L 100.0100 ####[facility] [address] [place], [address] Erythrocyte distribution width (RBC) [Ratio] 13.3 % Normal 11.6-14.6 [facility] Comment on above: Performed By: #### L 100.0100 ####[facility] [address] [place], [address] Hematocrit (Bld) [Volume fraction] 43.2 % Normal 40-54 [facility] Comment on above: Performed By: #### L 100.0100 ####[facility] [address] [place], [address] Hemoglobin (Bld) [Mass/Vol] 14.1 g/dL Normal 13.0-16.5 [facility] Comment on above: Performed By: #### L 100.0100 ####[facility] [address] [place], [address] IG% 0.600 Normal 0.0-0.9 [facility] Comment on above: Result Comment: IG% - Immature Granulocytes (promyelocytes, myelocytes andmetamyelocytes) > 1% indicates that a LEFT SHIFT is Present. Performed By: #### L 100.0100 ####[facility] [address] [place], [address] Lymphocytes/100 WBC (Bld) 20.9 % Normal 19-41 [facility] Comment on above: Performed By: #### L 100.0100 ####[facility] [address] [place], [address] MCH (RBC) [Entitic mass] 31.4 pg Normal 27.0-32.0 [facility] Comment on above: Performed By: #### L 100.0100 ####[facility] [address] [place], [address] MCHC (RBC) [Mass/Vol] 32.6 g/dL Normal 32-36 [facility] Comment on above: Performed By: #### L 100.0100 ####[facility] [address] [place], [address] MCV (RBC) [Entitic vol] 96.2 fL High 80-94 [facility] Comment on above: Performed By: #### L 100.0100 ####[facility] [address] [place], [address] Monocytes/100 WBC (Bld) 6.2 % Normal 0-10 [facility] Comment on above: Performed By: #### L 100.0100 ####[facility] [address] [place], [address] Neutrophils/100 WBC (Bld) 70.9 % High 47-70 [facility] Comment on above: Performed By: #### L 100.0100 ####[facility] [address] [place], [address] Nucleated RBC (Bld) [#/Vol] 0 10*3/uL Normal 0-5 [facility] Comment on above: Performed By: #### L 100.0100 ####[facility] [address] [place], [address] Platelet mean volume (Bld) [Entitic vol] 9.5 fL Normal 6.2-12.0 [facility] Comment on above: Performed By: #### L 100.0100 ####[facility] [address] [place], [address] Platelets (Bld) [#/Vol] 367 10*3/uL Normal 150-450 [facility] Comment on above: Performed By: #### L 100.0100 ####[facility] [address] [place], [address] RBC (Bld) [#/Vol] 4.49 10*6/uL Low 4.6-6.2 [facility] Comment on above: Performed By: #### L 100.0100 ####[facility] [address] [place], [address] RDW SD 47.4 fl High 35.1-43.9 [facility] Comment on above: Performed By: #### L 100.0100 ####[facility] [address] [place], [address] WBC (Bld) [#/Vol] 6.9 10*3/uL Normal 4.4-11.0 [facility] Comment on above: Performed By: #### L 100.0100 ####[facility] [address] [place], [address] Absolute Neut Normal 2.0-7.7 [facility] Comment on above: Result Comment: Canc elled via OM: MD Ordered Performed By: #### L 100.0100, L500.2500 ####[facility] [address] [place], [address] HCT Normal 40-54 [facility] Comment on above: Result Comment: Canc elled via OM: MD Ordered Performed By: #### L 100.0100, L500.2500 ####[facility] [address] [place], [address] HGB Normal 13.0-16.5 [facility] Comment on above: Result Comment: Canc elled via OM: MD Ordered Performed By: #### L 100.0100, L500.2500 ####[facility] [address] [place], [address] MCH Normal 27.0-32.0 [facility] Comment on above: Result Comment: Canc elled via OM: MD Ordered Performed By: #### L 100.0100, L500.2500 ####[facility] [address] [place], [address] MCHC Normal 32-36 [facility] Comment on above: Result Comment: Canc elled via OM: MD Ordered Performed By: #### L 100.0100, L500.2500 ####[facility] [address] [place], [address] MCV Normal 80-94 [facility] Comment on above: Result Comment: Canc elled via OM: MD Ordered Performed By: #### L 100.0100, L500.2500 ####[facility] [address] [place], [address] NEUT% Normal 47-70 [facility] Comment on above: Result Comment: Canc elled via OM: MD Ordered Performed By: #### L 100.0100, L500.2500 ####[facility] [address] [place], [address] PLT Normal 150-450 [facility] Comment on above: Result Comment: Canc elled via OM: MD Ordered Performed By: #### L 100.0100, L500.2500 ####[facility] [address] [place], [address] RBC Normal 4.6-6.2 [facility] Comment on above: Result Comment: Canc elled via OM: MD Ordered Performed By: #### L 100.0100, L500.2500 ####[facility] [address] [place], [address] RDW CV Normal 11.6-14.6 [facility] Comment on above: Result Comment: Canc elled via OM: MD Ordered Performed By: #### L 100.0100, L500.2500 ####[facility] [address] [place], [address] RDW SD Normal 35.1-43.9 [facility] Comment on above: Result Comment: Canc elled via OM: MD Ordered Performed By: #### L 100.0100, L500.2500 ####[facility] [address] [place], [address] WBC Normal 4.4-11.0 [facility] Comment on above: Result Comment: Canc elled via OM: MD Ordered Performed By: #### L 100.0100, L500.2500 ####[facility] [address] [place], [address] Eosinophil percentageOrdered By: Celia Toribio on 09-01-2024 Eosinophils/100 WBC (Bld) 0.4 % 0-5 [facility] Erythrocyte distribution wid th ratioOrdered By: Celia Toribio on 09-01-2024 Erythrocyte distribution width (RBC) [Ratio] 13.3 % 11.6-14.6 [facility] Erythrocyte distribution wid th standard deviationOrdered By: Celia Toribio on 09-01-2024 Erythrocyte distribution width (RBC) [Entitic vol] 47.4 fL High 35.1-43.9 [facility] Erythrocyte distribution width (RBC) [Ratio] 47.4 fl High 35.1-43.9 [facility] Hematocrit Auto (Bld) [Volum e fraction]Ordered By: Celia Toribio on 09-01-2024 Hematocrit (Bld) [Volume fraction] 43.2 % 40-54 [facility] Hemoglobin measurementOrdere d By: Celia Toribio on 09-01-2024 Hemoglobin (Bld) [Mass/Vol] 14.1 g/dL 13.0-16.5 [facility] Immature granulocytes/100 WB C Auto (Bld)Ordered By: Celia Toribio on 09-01-2024 Immature granulocytes/100 WBC (Bld) 0.600 % 0.0-0.9 [facility] Comment on above: IG% - Immature Granu locytes (promyelocytes, myelocytes and metamyelocytes) > 1% indicates that a LEFT SHIFT is Present. Lymphocytes Auto (Unsp spec) [#/Vol]Ordered By: Celia Toribio on 09-01-2024 Lymphocytes (Bld) [#/Vol] 1.45 10*3/uL 0.83-4.51 [facility] Lymphocytes/100 WBC Auto (Un sp spec)Ordered By: Celia Toribio on 09-01-2024 Lymphocytes/100 WBC (Bld) 20.9 % 19-41 [facility] MCV (mean corpuscular volume ) determinationOrdered By: Celia Toribio on 09-01-2024 MCV (RBC) [Entitic vol] 96.2 fL High 80-94 [facility] Mean corpuscular hemoglobin (MCH) determinationOrdered By: Celia Toribio on 09-01-2024 MCH (RBC) [Entitic mass] 31.4 pg 27.0-32.0 [facility] Mean corpuscular hemoglobin concentration (MCHC) determinationOrdered By: Celia Toribio on 09-01-2024 MCHC (RBC) [Mass/Vol] 32.6 g/dL 32-36 [facility] Mean platelet volume determi nationOrdered By: Celia Toribio on 09-01-2024 Platelet mean volume (Bld) [Entitic vol] 9.5 fL 6.2-12.0 [facility] Monocyte percentageOrdered B y: Celia Toribio on 09-01-2024 Monocytes/100 WBC (Bld) 6.2 % 0-10 [facility] Neutrophil percentageOrdered By: Celia Toribio on 09-01-2024 Neutrophils/100 WBC (Bld) 70.9 % High 47-70 [facility] Nucleated red blood cell per centageOrdered By: Celia Toribio on 09-01-2024 Nucleated RBC/100 WBC (Bld) [Ratio] 0 % 0-5 [facility] Platelet countOrdered By: Yariel Toribio on 09-01-2024 Platelets (Bld) [#/Vol] 367 10*3/uL 150-450 [facility] RBC Auto (Bld) [#/Vol]Ordere d By: Celia Toribio on 09-01-2024 RBC (Bld) [#/Vol] 4.49 10*6/uL Low 4.6-6.2 [facility] White blood cell (WBC) count Ordered By: Celia Toribio on 09-01-2024 WBC (Bld) [#/Vol] 6.9 10*3/uL 4.4-11.0 [facility] Basic Metabolic Profile (BMP )on 08-31-2024 BUN/CRE 25.7 RATIO High 10-20 [facility] Comment on above: Performed By: #### L 500.2500, L100.0100 ####[facility] [address] [place], [address] Calcium [Mass/Vol] 10.0 mg/dL Normal 7.6-11.0 [facility] Comment on above: Performed By: #### L 500.2500, L100.0100 ####[facility] [address] [place], [address] Chloride [Moles/Vol] 102 mmol/L Normal 98-108 [facility] Comment on above: Performed By: #### L 500.2500, L100.0100 ####[facility] [address] [place], [address] CO2 [Moles/Vol] 21.5 mmol/L Normal 21.0-32.0 [facility] Comment on above: Performed By: #### L 500.2500, L100.0100 ####[facility] [address] [place], [address] Creatinine [Mass/Vol] 1.16 mg/dL Normal 0.70-1.20 [facility] Comment on above: Performed By: #### L 500.2500, L100.0100 ####[facility] [address] [place], [address] ECRCL 52.61 ml/min Normal 50-250 [facility] Comment on above: Performed By: #### L 500.2500, L100.0100 ####[facility] [address] [place], [address] GAP 15 Normal 5-15 [facility] Comment on above: Performed By: #### L 500.2500, L100.0100 ####[facility] [facility] [address] [place], [address] GFR/1.73 sq M.predicted among non-blacks MDRD (S/P/Bld) [Vol rate/Area] 66 mL/min/{1.73_m2} Normal >60 [facility] Comment on above: Result Comment: mL/m in/1.73m2 CKD-EPI Creatinine Equation (2020) Performed By: #### L 500.2500, L100.0100 ####[facility] [address] [place], [address] Glucose [Mass/Vol] 93 mg/dL Normal 70-99 [facility] Comment on above: Performed By: #### L 500.2500, L100.0100 ####[facility] [address] [place], [address] Potassium [Moles/Vol] 3.8 mmol/L Normal 3.3-5.1 [facility] Comment on above: Performed By: #### L 500.2500, L100.0100 ####[facility] [address] [place], [address] Sodium [Moles/Vol] 138 mmol/L Normal 133-145 [facility] Comment on above: Performed By: #### L 500.2500, L100.0100 ####[facility] [address] [place], [address] Urea nitrogen [Mass/Vol] 30 mg/dL High 4-19 [facility] Comment on above: Performed By: #### L 500.2500, L100.0100 ####[facility] [address] [place], [address] CBC W/Diff, Automatedon 08-17 Absolute Neut Normal 2.0-7.7 [facility] Comment on above: Result Comment: Canc elled via OM: MD Ordered Performed By: #### L 500.2500, L100.0100 ####[facility] [address] [place], [address] HCT Normal 40-54 [facility] Comment on above: Result Comment: Canc elled via OM: MD Ordered Performed By: #### L 500.2500, L100.0100 ####[facility] [address] [place], [address] HGB Normal 13.0-16.5 [facility] Comment on above: Result Comment: Canc elled via OM: MD Ordered Performed By: #### L 500.2500, L100.0100 ####[facility] [address] [place], [address] MCH Normal 27.0-32.0 [facility] Comment on above: Result Comment: Canc elled via OM: MD Ordered Performed By: #### L 500.2500, L100.0100 ####[facility] [address] [place], [address] MCHC Normal 32-36 [facility] Comment on above: Result Comment: Canc elled via OM: MD Ordered Performed By: #### L 500.2500, L100.0100 ####[facility] [address] [place], [address] MCV Normal 80-94 [facility] Comment on above: Result Comment: Canc elled via OM: MD Ordered Performed By: #### L 500.2500, L100.0100 ####[facility] [address] [place], [address] NEUT% Normal 47-70 [facility] Comment on above: Result Comment: Canc elled via OM: MD Ordered Performed By: #### L 500.2500, L100.0100 ####[facility] [address] [place], [address] PLT Normal 150-450 [facility] Comment on above: Result Comment: Canc elled via OM: MD Ordered Performed By: #### L 500.2500, L100.0100 ####[facility] [address] [place], [address] RBC Normal 4.6-6.2 [facility] Comment on above: Result Comment: Canc elled via OM: MD Ordered Performed By: #### L 500.2500, L100.0100 ####[facility] [address] [place], [address] RDW CV Normal 11.6-14.6 [facility] Comment on above: Result Comment: Canc elled via OM: MD Ordered Performed By: #### L 500.2500, L100.0100 ####[facility] [address] [place], [address] RDW SD Normal 35.1-43.9 [facility] Comment on above: Result Comment: Canc elled via OM: MD Ordered Performed By: #### L 500.2500, L100.0100 ####[facility] [address] [place], [address] WBC Normal 4.4-11.0 [facility] Comment on above: Result Comment: Canc elled via OM: MD Ordered Performed By: #### L 500.2500, L100.0100 ####[facility] [address] [place], [address] Basic Metabolic Profile (BMP )on 08-30-2024 BUN/CRE 21.4 RATIO High 10-20 [facility] Comment on above: Performed By: #### L 100.0100, L500.2500 ####[facility] [address] [place], [address] Calcium [Mass/Vol] 10.1 mg/dL Normal 7.6-11.0 [facility] Comment on above: Performed By: #### L 100.0100, L500.2500 ####[facility] [address] [place], [address] Chloride [Moles/Vol] 102 mmol/L Normal 98-108 [facility] Comment on above: Performed By: #### L 100.0100, L500.2500 ####[facility] [address] [place], [address] CO2 [Moles/Vol] 22.7 mmol/L Normal 21.0-32.0 [facility] Comment on above: Performed By: #### L 100.0100, L500.2500 ####[facility] [address] [place], [address] Creatinine [Mass/Vol] 1.21 mg/dL High 0.70-1.20 [facility] Comment on above: Performed By: #### L 100.0100, L500.2500 ####[facility] [address] [place], [address] ECRCL 51.03 ml/min Normal 50-250 [facility] Comment on above: Performed By: #### L 100.0100, L500.2500 ####[facility] [address] [place], [address] GAP 13 Normal 5-15 [facility] Comment on above: Performed By: #### L 100.0100, L500.2500 ####[facility] [address] [place], [address] GFR/1.73 sq M.predicted among non-blacks MDRD (S/P/Bld) [Vol rate/Area] 62 mL/min/{1.73_m2} Normal >60 [facility] Comment on above: Result Comment: mL/m in/1.73m2 CKD-EPI Creatinine Equation (2020) Performed By: #### L 100.0100, L500.2500 ####[facility] [address] [place], [address] Glucose [Mass/Vol] 94 mg/dL Normal 70-99 [facility] Comment on above: Performed By: #### L 100.0100, L500.2500 ####[facility] [address] [place], [address] Potassium [Moles/Vol] 4.2 mmol/L Normal 3.3-5.1 [facility] Comment on above: Performed By: #### L 100.0100, L500.2500 ####[facility] [address] [place], [address] Sodium [Moles/Vol] 138 mmol/L Normal 133-145 [facility] Comment on above: Performed By: #### L 100.0100, L500.2500 ####[facility] [address] [place], [address] Urea nitrogen [Mass/Vol] 26 mg/dL High 4-19 [facility] Comment on above: Performed By: #### L 100.0100, L500.2500 ####[facility] [address] [place], [address] CBC W/Diff, Automatedon 08-17 Absolute Lymph 1.00 X10 3/uL Normal 0.83-4.51 [facility] Comment on above: Performed By: #### L 100.0100, L500.2500 ####[facility] [address] [place], [address] Absolute Neut 3.7 X10 3/uL Normal 2.0-7.7 [facility] Comment on above: Performed By: #### L 100.0100, L500.2500 ####[facility] [address] [place], [address] Basophils/100 WBC (Bld) 1.6 % High 0-1 [facility] Comment on above: Performed By: #### L 100.0100, L500.2500 ####[facility] [address] [place], [address] Eosinophils/100 WBC (Bld) 7.8 % High 0-5 [facility] Comment on above: Performed By: #### L 100.0100, L500.2500 ####[facility] [address] [place], [address] Erythrocyte distribution width (RBC) [Ratio] 13.3 % Normal 11.6-14.6 [facility] Comment on above: Performed By: #### L 100.0100, L500.2500 ####[facility] [address] [place], [address] Hematocrit (Bld) [Volume fraction] 41.8 % Normal 40-54 [facility] Comment on above: Performed By: #### L 100.0100, L500.2500 ####[facility] [address] [place], [address] Hemoglobin (Bld) [Mass/Vol] 13.8 g/dL Normal 13.0-16.5 [facility] Comment on above: Performed By: #### L 100.0100, L500.2500 ####[facility] [address] [place], [address] IG% 0.400 Normal 0.0-0.9 [facility] Comment on above: Result Comment: IG% - Immature Granulocytes (promyelocytes, myelocytes andmetamyelocytes) > 1% indicates that a LEFT SHIFT is Present. Performed By: #### L 100.0100, L500.2500 ####[facility] [address] [place], [address] Lymphocytes/100 WBC (Bld) 17.8 % Low 19-41 [facility] Comment on above: Performed By: #### L 100.0100, L500.2500 ####[facility] [address] [place], [address] MCH (RBC) [Entitic mass] 31.9 pg Normal 27.0-32.0 [facility] Comment on above: Performed By: #### L 100.0100, L500.2500 ####[facility] [address] [place], [address] MCHC (RBC) [Mass/Vol] 33.0 g/dL Normal 32-36 [facility] Comment on above: Performed By: #### L 100.0100, L500.2500 ####[facility] [address] [place], [address] MCV (RBC) [Entitic vol] 96.5 fL High 80-94 [facility] Comment on above: Performed By: #### L 100.0100, L500.2500 ####[facility] [address] [place], [address] Monocytes/100 WBC (Bld) 7.6 % Normal 0-10 [facility] Comment on above: Performed By: #### L 100.0100, L500.2500 ####[facility] [address] [place], [address] Neutrophils/100 WBC (Bld) 64.8 % Normal 47-70 [facility] Comment on above: Performed By: #### L 100.0100, L500.2500 ####[facility] [address] [place], [address] Nucleated RBC (Bld) [#/Vol] 0 10*3/uL Normal 0-5 [facility] Comment on above: Performed By: #### L 100.0100, L500.2500 ####[facility] [address] [place], [address] Platelet mean volume (Bld) [Entitic vol] 9.7 fL Normal 6.2-12.0 [facility] Comment on above: Performed By: #### L 100.0100, L500.2500 ####[facility] [address] [place], [address] Platelets (Bld) [#/Vol] 309 10*3/uL Normal 150-450 [facility] Comment on above: Performed By: #### L 100.0100, L500.2500 ####[facility] [address] [place], [address] RBC (Bld) [#/Vol] 4.33 10*6/uL Low 4.6-6.2 [facility] Comment on above: Performed By: #### L 100.0100, L500.2500 ####[facility] [address] [place], [address] RDW SD 47.7 fl High 35.1-43.9 [facility] Comment on above: Performed By: #### L 100.0100, L500.2500 ####[facility] [address] [place], [address] WBC (Bld) [#/Vol] 5.6 10*3/uL Normal 4.4-11.0 [facility] Comment on above: Performed By: #### L 100.0100, L500.2500 ####[facility] [address] [place], [address] Consultation - Infectious Dx on 08-30-2024 Consultation - Infectious Dx Normal [facility] Basic Metabolic Profile (BMP )on 08-29-2024 BUN/CRE 24.6 RATIO High 10-20 [facility] Comment on above: Performed By: #### L 100.0100, L500.2500 ####[facility] [address] [place], [address] Calcium [Mass/Vol] 10.0 mg/dL Normal 7.6-11.0 [facility] Comment on above: Performed By: #### L 100.0100, L500.2500 ####[facility] [address] [place], [address] Chloride [Moles/Vol] 104 mmol/L Normal 98-108 [facility] Comment on above: Performed By: #### L 100.0100, L500.2500 ####[facility] [address] [place], [address] CO2 [Moles/Vol] 22.8 mmol/L Normal 21.0-32.0 [facility] Comment on above: Performed By: #### L 100.0100, L500.2500 ####[facility] [address] [place], [address] Creatinine [Mass/Vol] 1.21 mg/dL High 0.70-1.20 [facility] Comment on above: Performed By: #### L 100.0100, L500.2500 ####[facility] [address] [place], [address] ECRCL 51.03 ml/min Normal 50-250 [facility] Comment on above: Performed By: #### L 100.0100, L500.2500 ####[facility] [address] [place], [address] GAP 14 Normal 5-15 [facility] Comment on above: Performed By: #### L 100.0100, L500.2500 ####[facility] [address] [place], [address] GFR/1.73 sq M.predicted among non-blacks MDRD (S/P/Bld) [Vol rate/Area] 62 mL/min/{1.73_m2} Normal >60 [facility] Comment on above: Result Comment: mL/m in/1.73m2 CKD-EPI Creatinine Equation (2020) Performed By: #### L 100.0100, L500.2500 ####[facility] [address] [place], [address] Glucose [Mass/Vol] 91 mg/dL Normal 70-99 [facility] Comment on above: Performed By: #### L 100.0100, L500.2500 ####[facility] [address] [place], [address] Potassium [Moles/Vol] 4.1 mmol/L Normal 3.3-5.1 [facility] Comment on above: Performed By: #### L 100.0100, L500.2500 ####[facility] [address] [place], [address] Sodium [Moles/Vol] 141 mmol/L Normal 133-145 [facility] Comment on above: Performed By: #### L 100.0100, L500.2500 ####[facility] [address] [place], [address] Urea nitrogen [Mass/Vol] 30 mg/dL High 4-19 [facility] Comment on above: Performed By: #### L 100.0100, L500.2500 ####[facility] [address] [place], [address] CBC W/Diff, Automatedon 08-17 Absolute Lymph 1.17 X10 3/uL Normal 0.83-4.51 [facility] Comment on above: Performed By: #### L 100.0100, L500.2500 ####[facility] [address] [place], [address] Absolute Neut 3.1 X10 3/uL Normal 2.0-7.7 [facility] Comment on above: Performed By: #### L 100.0100, L500.2500 ####[facility] [address] [place], [address] Basophils/100 WBC (Bld) 1.3 % High 0-1 [facility] Comment on above: Performed By: #### L 100.0100, L500.2500 ####[facility] [address] [place], [address] Eosinophils/100 WBC (Bld) 8.2 % High 0-5 [facility] Comment on above: Performed By: #### L 100.0100, L500.2500 ####[facility] [address] [place], [address] Erythrocyte distribution width (RBC) [Ratio] 13.5 % Normal 11.6-14.6 [facility] Comment on above: Performed By: #### L 100.0100, L500.2500 ####[facility] [address] [place], [address] Hematocrit (Bld) [Volume fraction] 39.2 % Low 40-54 [facility] Comment on above: Performed By: #### L 100.0100, L500.2500 ####[facility] [address] [place], [address] Hemoglobin (Bld) [Mass/Vol] 12.8 g/dL Low 13.0-16.5 [facility] Comment on above: Performed By: #### L 100.0100, L500.2500 ####[facility] [address] [place], [address] IG% 0.400 Normal 0.0-0.9 [facility] Comment on above: Result Comment: IG% - Immature Granulocytes (promyelocytes, myelocytes andmetamyelocytes) > 1% indicates that a LEFT SHIFT is Present. Performed By: #### L 100.0100, L500.2500 ####[facility] [address] [place], [address] Lymphocytes/100 WBC (Bld) 22.3 % Normal 19-41 [facility] Comment on above: Performed By: #### L 100.0100, L500.2500 ####[facility] [address] [place], [address] MCH (RBC) [Entitic mass] 31.4 pg Normal 27.0-32.0 [facility] Comment on above: Performed By: #### L 100.0100, L500.2500 ####[facility] [address] [place], [address] MCHC (RBC) [Mass/Vol] 32.7 g/dL Normal 32-36 [facility] Comment on above: Performed By: #### L 100.0100, L500.2500 ####[facility] [address] [place], [address] MCV (RBC) [Entitic vol] 96.1 fL High 80-94 [facility] Comment on above: Performed By: #### L 100.0100, L500.2500 ####[facility] [address] [place], [address] Monocytes/100 WBC (Bld) 8.0 % Normal 0-10 [facility] Comment on above: Performed By: #### L 100.0100, L500.2500 ####[facility] [address] [place], [address] Neutrophils/100 WBC (Bld) 59.8 % Normal 47-70 [facility] Comment on above: Performed By: #### L 100.0100, L500.2500 ####[facility] [address] [place], [address] Nucleated RBC (Bld) [#/Vol] 0 10*3/uL Normal 0-5 [facility] Comment on above: Performed By: #### L 100.0100, L500.2500 ####[facility] [address] [place], [address] Platelet mean volume (Bld) [Entitic vol] 9.8 fL Normal 6.2-12.0 [facility] Comment on above: Performed By: #### L 100.0100, L500.2500 ####[facility] [address] [place], [address] Platelets (Bld) [#/Vol] 277 10*3/uL Normal 150-450 [facility] Comment on above: Performed By: #### L 100.0100, L500.2500 ####[facility] [address] [place], [address] RBC (Bld) [#/Vol] 4.08 10*6/uL Low 4.6-6.2 [facility] Comment on above: Performed By: #### L 100.0100, L500.2500 ####[facility] [address] [place], [address] RDW SD 47.8 fl High 35.1-43.9 [facility] Comment on above: Performed By: #### L 100.0100, L500.2500 ####[facility] [address] [place], [address] WBC (Bld) [#/Vol] 5.3 10*3/uL Normal 4.4-11.0 [facility] Comment on above: Performed By: #### L 100.0100, L500.2500 ####[facility] [address] [place], [address] Basic Metabolic Profile (BMP )on 08-28-2024 BUN/CRE 21.6 RATIO High 10-20 [facility] Comment on above: Performed By: #### L 100.0100, L500.2500 ####[facility] [address] [place], [address] Calcium [Mass/Vol] 9.8 mg/dL Normal 7.6-11.0 [facility] Comment on above: Performed By: #### L 100.0100, L500.2500 ####[facility] [address] [place], [address] Chloride [Moles/Vol] 105 mmol/L Normal 98-108 [facility] Comment on above: Performed By: #### L 100.0100, L500.2500 ####[facility] [address] [place], [address] CO2 [Moles/Vol] 21.9 mmol/L Normal 21.0-32.0 [facility] Comment on above: Performed By: #### L 100.0100, L500.2500 ####[facility] [address] [place], [address] Creatinine [Mass/Vol] 1.14 mg/dL Normal 0.70-1.20 [facility] Comment on above: Performed By: #### L 100.0100, L500.2500 ####[facility] [address] [place], [address] ECRCL 54.17 ml/min Normal 50-250 [facility] Comment on above: Performed By: #### L 100.0100, L500.2500 ####[facility] [address] [place], [address] GAP 13 Normal 5-15 [facility] Comment on above: Performed By: #### L 100.0100, L500.2500 ####[facility] [address] [place], [address] GFR/1.73 sq M.predicted among non-blacks MDRD (S/P/Bld) [Vol rate/Area] 67 mL/min/{1.73_m2} Normal >60 [facility] Comment on above: Result Comment: mL/m in/1.73m2 CKD-EPI Creatinine Equation (2020) Performed By: #### L 100.0100, L500.2500 ####[facility] [address] [place], [address] Glucose [Mass/Vol] 93 mg/dL Normal 70-99 [facility] Comment on above: Performed By: #### L 100.0100, L500.2500 ####[facility] [address] [place], [address] Potassium [Moles/Vol] 3.8 mmol/L Normal 3.3-5.1 [facility] Comment on above: Performed By: #### L 100.0100, L500.2500 ####[facility] [address] [place], [address] Sodium [Moles/Vol] 140 mmol/L Normal 133-145 [facility] Comment on above: Performed By: #### L 100.0100, L500.2500 ####[facility] [address] [place], [address] Urea nitrogen [Mass/Vol] 25 mg/dL High 4-19 [facility] Comment on above: Performed By: #### L 100.0100, L500.2500 ####[facility] [address] [place], [address] CBC W/Diff, Automatedon 08-17 Absolute Lymph 1.06 X10 3/uL Normal 0.83-4.51 [facility] Comment on above: Performed By: #### L 100.0100, L500.2500 ####[facility] [address] [place], [address] Absolute Neut 2.5 X10 3/uL Normal 2.0-7.7 [facility] Comment on above: Performed By: #### L 100.0100, L500.2500 ####[facility] [address] [place], [address] Basophils/100 WBC (Bld) 1.8 % High 0-1 [facility] Comment on above: Performed By: #### L 100.0100, L500.2500 ####[facility] [address] [place], [address] Eosinophils/100 WBC (Bld) 7.5 % High 0-5 [facility] Comment on above: Performed By: #### L 100.0100, L500.2500 ####[facility] [address] [place], [address] Erythrocyte distribution width (RBC) [Ratio] 13.3 % Normal 11.6-14.6 [facility] Comment on above: Performed By: #### L 100.0100, L500.2500 ####[facility] [address] [place], [address] Hematocrit (Bld) [Volume fraction] 39.0 % Low 40-54 [facility] Comment on above: Performed By: #### L 100.0100, L500.2500 ####[facility] [address] [place], [address] Hemoglobin (Bld) [Mass/Vol] 12.8 g/dL Low 13.0-16.5 [facility] Comment on above: Performed By: #### L 100.0100, L500.2500 ####[facility] [address] [place], [address] IG% 0.400 Normal 0.0-0.9 [facility] Comment on above: Result Comment: IG% - Immature Granulocytes (promyelocytes, myelocytes andmetamyelocytes) > 1% indicates that a LEFT SHIFT is Present. Performed By: #### L 100.0100, L500.2500 ####[facility] [address] [place], [address] Lymphocytes/100 WBC (Bld) 23.4 % Normal 19-41 [facility] Comment on above: Performed By: #### L 100.0100, L500.2500 ####[facility] [address] [place], [address] MCH (RBC) [Entitic mass] 31.1 pg Normal 27.0-32.0 [facility] Comment on above: Performed By: #### L 100.0100, L500.2500 ####[facility] [address] [place], [address] MCHC (RBC) [Mass/Vol] 32.8 g/dL Normal 32-36 [facility] Comment on above: Performed By: #### L 100.0100, L500.2500 ####[facility] [address] [place], [address] MCV (RBC) [Entitic vol] 94.7 fL High 80-94 [facility] Comment on above: Performed By: #### L 100.0100, L500.2500 ####[facility] [address] [place], [address] Monocytes/100 WBC (Bld) 11.3 % High 0-10 [facility] Comment on above: Performed By: #### L 100.0100, L500.2500 ####[facility] [address] [place], [address] Neutrophils/100 WBC (Bld) 55.6 % Normal 47-70 [facility] Comment on above: Performed By: #### L 100.0100, L500.2500 ####[facility] [address] [place], [address] Nucleated RBC (Bld) [#/Vol] 0 10*3/uL Normal 0-5 [facility] Comment on above: Performed By: #### L 100.0100, L500.2500 ####[facility] [address] [place], [address] Platelet mean volume (Bld) [Entitic vol] 9.8 fL Normal 6.2-12.0 [facility] Comment on above: Performed By: #### L 100.0100, L500.2500 ####[facility] [address] [place], [address] Platelets (Bld) [#/Vol] 279 10*3/uL Normal 150-450 [facility] Comment on above: Performed By: #### L 100.0100, L500.2500 ####[facility] [address] [place], [address] RBC (Bld) [#/Vol] 4.12 10*6/uL Low 4.6-6.2 [facility] Comment on above: Performed By: #### L 100.0100, L500.2500 ####[facility] [address] [place], [address] RDW SD 46.1 fl High 35.1-43.9 [facility] Comment on above: Performed By: #### L 100.0100, L500.2500 ####[facility] [address] [place], [address] WBC (Bld) [#/Vol] 4.5 10*3/uL Normal 4.4-11.0 [facility] Comment on above: Performed By: #### L 100.0100, L500.2500 ####[facility] [address] [place], [address] Basic Metabolic Profile (BMP )on 08-27-2024 BUN/CRE 17.2 RATIO Normal 10-20 [facility] Comment on above: Performed By: #### L 500.2500, L100.0100 ####[facility] [address] [place], [address] Calcium [Mass/Vol] 9.5 mg/dL Normal 7.6-11.0 [facility] Comment on above: Performed By: #### L 500.2500, L100.0100 ####[facility] [address] [place], [address] Chloride [Moles/Vol] 104 mmol/L Normal 98-108 [facility] Comment on above: Performed By: #### L 500.2500, L100.0100 ####[facility] [address] [place], [address] CO2 [Moles/Vol] 19.9 mmol/L Low 21.0-32.0 [facility] Comment on above: Performed By: #### L 500.2500, L100.0100 ####[facility] [address] [place], [address] Creatinine [Mass/Vol] 1.18 mg/dL Normal 0.70-1.20 [facility] Comment on above: Performed By: #### L 500.2500, L100.0100 ####[facility] [address] [place], [address] ECRCL 52.25 ml/min Normal 50-250 [facility] Comment on above: Performed By: #### L 500.2500, L100.0100 ####[facility] [address] [place], [address] GAP 14 Normal 5-15 [facility] Comment on above: Performed By: #### L 500.2500, L100.0100 ####[facility] [address] [place], [address] GFR/1.73 sq M.predicted among non-blacks MDRD (S/P/Bld) [Vol rate/Area] 64 mL/min/{1.73_m2} Normal >60 [facility] Comment on above: Result Comment: mL/m in/1.73m2 CKD-EPI Creatinine Equation (2020) Performed By: #### L 500.2500, L100.0100 ####[facility] [address] [place], [address] Glucose [Mass/Vol] 97 mg/dL Normal 70-99 [facility] Comment on above: Performed By: #### L 500.2500, L100.0100 ####[facility] [address] [place], [address] Potassium [Moles/Vol] 3.4 mmol/L Normal 3.3-5.1 [facility] Comment on above: Performed By: #### L 500.2500, L100.0100 ####[facility] [address] [place], [address] Sodium [Moles/Vol] 139 mmol/L Normal 133-145 [facility] Comment on above: Performed By: #### L 500.2500, L100.0100 ####[facility] [address] [place], [address] Urea nitrogen [Mass/Vol] 20 mg/dL High 4-19 [facility] Comment on above: Performed By: #### L 500.2500, L100.0100 ####[facility] [address] [place], [address] Bilirubin Test strip Ql (U)O rdered By: Celia Toribio on 08-27-2024 Bilirubin Ql (U) Negative Negative [facility] CBC W/Diff, Automatedon 08-17 Absolute Lymph 0.95 X10 3/uL Normal 0.83-4.51 [facility] Comment on above: Performed By: #### L 500.2500, L100.0100 ####[facility] [address] [place], [address] Absolute Neut 2.3 X10 3/uL Normal 2.0-7.7 [facility] Comment on above: Performed By: #### L 500.2500, L100.0100 ####[facility] [address] [place], [address] Basophils/100 WBC (Bld) 1.2 % High 0-1 [facility] Comment on above: Performed By: #### L 500.2500, L100.0100 ####[facility] [address] [place], [address] Eosinophils/100 WBC (Bld) 6.3 % High 0-5 [facility] Comment on above: Performed By: #### L 500.2500, L100.0100 ####[facility] [address] [place], [address] Erythrocyte distribution width (RBC) [Ratio] 13.3 % Normal 11.6-14.6 [facility] Comment on above: Performed By: #### L 500.2500, L100.0100 ####[facility] [address] [place], [address] Hematocrit (Bld) [Volume fraction] 38.4 % Low 40-54 [facility] Comment on above: Performed By: #### L 500.2500, L100.0100 ####[facility] [address] [place], [address] Hemoglobin (Bld) [Mass/Vol] 12.8 g/dL Low 13.0-16.5 [facility] Comment on above: Performed By: #### L 500.2500, L100.0100 ####[facility] [address] [place], [address] IG% 0.200 Normal 0.0-0.9 [facility] Comment on above: Result Comment: IG% - Immature Granulocytes (promyelocytes, myelocytes andmetamyelocytes) > 1% indicates that a LEFT SHIFT is Present. Performed By: #### L 500.2500, L100.0100 ####[facility] [address] [place], [address] Lymphocytes/100 WBC (Bld) 23.0 % Normal 19-41 [facility] Comment on above: Performed By: #### L 500.2500, L100.0100 ####[facility] [address] [place], [address] MCH (RBC) [Entitic mass] 31.4 pg Normal 27.0-32.0 [facility] Comment on above: Performed By: #### L 500.2500, L100.0100 ####[facility] [address] [place], [address] MCHC (RBC) [Mass/Vol] 33.3 g/dL Normal 32-36 [facility] Comment on above: Performed By: #### L 500.2500, L100.0100 ####[facility] [address] [place], [address] MCV (RBC) [Entitic vol] 94.3 fL High 80-94 [facility] Comment on above: Performed By: #### L 500.2500, L100.0100 ####[facility] [address] [place], [address] Monocytes/100 WBC (Bld) 13.1 % High 0-10 [facility] Comment on above: Performed By: #### L 500.2500, L100.0100 ####[facility] [address] [place], [address] Neutrophils/100 WBC (Bld) 56.2 % Normal 47-70 [facility] Comment on above: Performed By: #### L 500.2500, L100.0100 ####[facility] [address] [place], [address] Nucleated RBC (Bld) [#/Vol] 0 10*3/uL Normal 0-5 [facility] Comment on above: Performed By: #### L 500.2500, L100.0100 ####[facility] [address] [place], [address] Platelet mean volume (Bld) [Entitic vol] 10.0 fL Normal 6.2-12.0 [facility] Comment on above: Performed By: #### L 500.2500, L100.0100 ####[facility] [address] [place], [address] Platelets (Bld) [#/Vol] 253 10*3/uL Normal 150-450 [facility] Comment on above: Performed By: #### L 500.2500, L100.0100 ####[facility] [address] [place], [address] RBC (Bld) [#/Vol] 4.07 10*6/uL Low 4.6-6.2 [facility] Comment on above: Performed By: #### L 500.2500, L100.0100 ####[facility] [address] [place], [address] RDW SD 46.1 fl High 35.1-43.9 [facility] Comment on above: Performed By: #### L 500.2500, L100.0100 ####[facility] [address] [place], [address] WBC (Bld) [#/Vol] 4.1 10*3/uL Low 4.4-11.0 [facility] Comment on above: Performed By: #### L 500.2500, L100.0100 ####[facility] [address] [place], [address] CBC-Complete Blood Cnt No Di ffon 08-27-2024 Erythrocyte distribution width (RBC) [Ratio] 13.4 % Normal 11.6-14.6 [facility] Comment on above: Performed By: #### L 100.0500 ####[facility] [address] [place], [address] Hematocrit (Bld) [Volume fraction] 40.6 % Normal 40-54 [facility] Comment on above: Performed By: #### L 100.0500 ####[facility] [address] [place], [address] Hemoglobin (Bld) [Mass/Vol] 13.5 g/dL Normal 13.0-16.5 [facility] Comment on above: Performed By: #### L 100.0500 ####[facility] [address] [place], [address] MCH (RBC) [Entitic mass] 31.5 pg Normal 27.0-32.0 [facility] Comment on above: Performed By: #### L 100.0500 ####[facility] [address] [place], [address] MCHC (RBC) [Mass/Vol] 33.3 g/dL Normal 32-36 [facility] Comment on above: Performed By: #### L 100.0500 ####[facility] [address] [place], [address] MCV (RBC) [Entitic vol] 94.6 fL High 80-94 [facility] Comment on above: Performed By: #### L 100.0500 ####[facility] [address] [place], [address] Platelet mean volume (Bld) [Entitic vol] 9.8 fL Normal 6.2-12.0 [facility] Comment on above: Performed By: #### L 100.0500 ####[facility] [address] [place], [address] Platelets (Bld) [#/Vol] 283 10*3/uL Normal 150-450 [facility] Comment on above: Performed By: #### L 100.0500 ####[facility] [address] [place], [address] RBC (Bld) [#/Vol] 4.29 10*6/uL Low 4.6-6.2 [facility] Comment on above: Performed By: #### L 100.0500 ####[facility] [address] [place], [address] RDW SD 46.0 fl High 35.1-43.9 [facility] Comment on above: Performed By: #### L 100.0500 ####[facility] [address] [place], [address] WBC (Bld) [#/Vol] 4.9 10*3/uL Normal 4.4-11.0 [facility] Comment on above: Performed By: #### L 100.0500 ####[facility] [address] [place], [address] Epithelial cells.squamous LM Ql (Urine sed)Ordered By: Celia Toribio on 08-27-2024 Epithelial cells.squamous LM.HPF (Urine sed) [#/Area] 0 /[HPF] 0-5 [facility] Glucose Ql (U)Ordered By: Yariel Toribio on 08-27-2024 Urine Glucose (UA) Normal mg/dl Normal [facility] Ketones Test strip Ql (U)Ord ered By: Celia Toribio on 08-27-2024 Ketones Ql (U) Negative Negative [facility] Microscopic analysis of urin e for red blood cells (RBC)Ordered By: Celia Toribio on 08-27-2024 Microscopic analysis of urine for red blood cells (RBC) 0 SEEN /hpf 0-5 [facility] Urine RBC 0 SEEN /hpf 0-5 [facility] Mucus LM Ql (Urine sed)Order ed By: Celia Toribio on 08-27-2024 Mucus Ql (Urine sed) 0 SEEN /hpf [facility] Nitrite Test strip Ql (U)Ord ered By: Celia Toribio on 08-27-2024 Nitrite Ql (U) Positive High Negative [facility] Protein Test strip Ql (U)Ord ered By: Celia Toribio on 08-27-2024 Protein Ql (U) 30 mg/dl High Negative [facility] Squamous epithelial cells de tection in urine sediment by light microscopyOrdered By: Celia Toribio on 08-27-2024 Epithelial cells.squamous LM Ql (Urine sed) 0-5 SEEN /hpf 0-5 [facility] Urinalysis, Completeon 08-27 BACTERIA 4+ /hpf Normal None Seen [facility] Comment on above: Order Comment: CLEAN CATCH Performed By: #### M 100.2200, L400.0001 ####[facility] [address] [place], [address] EPI,SQUAMOUS 0-5 SEEN Normal 0-5 [facility] Comment on above: Order Comment: CLEAN CATCH Performed By: #### M 100.2200, L400.0001 ####[facility] [address] [place], [address] RBC 0 SEEN Normal 0-5 [facility] Comment on above: Order Comment: CLEAN CATCH Performed By: #### M 100.2200, L400.0001 ####[facility] [address] [place], [address] WBC 25-50 SEEN Normal 0-5 [facility] Comment on above: Order Comment: CLEAN CATCH Performed By: #### M 100.2200, L400.0001 ####[facility] [address] [place], [address] Mucus Ql (Urine sed) 0 SEEN Normal [facility] Comment on above: Order Comment: CLEAN CATCH Performed By: #### M 100.2200, L400.0001 ####[facility] [address] [place], [address] Urine blood detectionOrdered By: Celia Toribio on 08-27-2024 Urine Occult Blood Negative Negative [facility] Urine clarityOrdered By: Allyson Toribio on 08-27-2024 Clarity (U) Clear Clear [facility] Urine color determinationOrd ered By: Celia Toribio on 08-27-2024 Color (U) Yellow Yellow [facility] Urine cultureOrdered By: Allyson Toribio on 08-27-2024 Bacteria identified Cx Nom (U) ESBL Escherichia coli Abnormal [facility] Urine glucose detectionOrder ed By: Celia Toribio on 08-27-2024 Glucose Ql (U) Normal mg/dl Normal [facility] Urine leukocyte esterase det ection by dipstickOrdered By: Celia Toribio on 08-27-2024 Leukocyte esterase Test strip Ql (U) 500 /ul High Negative [facility] Urine pHOrdered By: Celia rapp on 08-27-2024 pH (U) 6.0 [pH] 5.0 - 8.0 [facility] Urine sediment bacteria coun t by microscopy (number/high power field)Ordered By: Celia Toribio on 08-27-2024 Bacteria LM.HPF (Urine sed) [#/Area] 4 /[HPF] None Seen [facility] Urine specific gravity measu rementOrdered By: Celia Toribio on 08-27-2024 Specific gravity (U) [Rel density] 1.015 1.002-1.030 [facility] Urine urobilinogen measureme ntOrdered By: Celia Toribio on 08-27-2024 Urobilinogen Ql (U) Normal mg/dl Normal [facility] Urobilinogen Ql (U)Ordered B y: Celia Toribio on 08-27-2024 Urine Urobilinogen Normal mg/dl Normal [facility] White blood cell countOrdere d By: Celia Toribio on 08-27-2024 Urine WBC 25-50 SEEN /hpf 0-5 [facility] White blood cell count 25-50 SEEN /hpf 0-5 [facility] Bilirubin, totalOrdered By: Lisha Talamantes on 08-26-2024 Bilirubin [Mass/Vol] 0.25 mg/dL 0.00-1.30 [facility] CBC W/Diff, Automatedon 08-17 Absolute Lymph 0.94 X10 3/uL Normal 0.83-4.51 [facility] Comment on above: Performed By: #### L 100.0100, L500.4050, L501.5200, L501.2300 ####[facility] [address] [place], [address] Absolute Neut 2.9 X10 3/uL Normal 2.0-7.7 [facility] Comment on above: Performed By: #### L 100.0100, L500.4050, L501.5200, L501.2300 ####[facility] [address] [place], [address] Basophils/100 WBC (Bld) 1.1 % High 0-1 [facility] Comment on above: Performed By: #### L 100.0100, L500.4050, L501.5200, L501.2300 ####[facility] [address] [place], [address] Eosinophils/100 WBC (Bld) 3.4 % Normal 0-5 [facility] Comment on above: Performed By: #### L 100.0100, L500.4050, L501.5200, L501.2300 ####[facility] [address] [place], [address] Erythrocyte distribution width (RBC) [Ratio] 13.3 % Normal 11.6-14.6 [facility] Comment on above: Performed By: #### L 100.0100, L500.4050, L501.5200, L501.2300 ####[facility] [address] [place], [address] Hematocrit (Bld) [Volume fraction] 40.6 % Normal 40-54 [facility] Comment on above: Performed By: #### L 100.0100, L500.4050, L501.5200, L501.2300 ####[facility] [address] [place], [address] Hemoglobin (Bld) [Mass/Vol] 13.3 g/dL Normal 13.0-16.5 [facility] Comment on above: Performed By: #### L 100.0100, L500.4050, L501.5200, L501.2300 ####[facility] [address] [place], [address] IG% 0.200 Normal 0.0-0.9 [facility] Comment on above: Result Comment: IG% - Immature Granulocytes (promyelocytes, myelocytes andmetamyelocytes) > 1% indicates that a LEFT SHIFT is Present. Performed By: #### L 100.0100, L500.4050, L501.5200, L501.2300 ####[facility] [address] [place], [address] Lymphocytes/100 WBC (Bld) 19.8 % Normal 19-41 [facility] Comment on above: Performed By: #### L 100.0100, L500.4050, L501.5200, L501.2300 ####[facility] [address] [place], [address] MCH (RBC) [Entitic mass] 31.2 pg Normal 27.0-32.0 [facility] Comment on above: Performed By: #### L 100.0100, L500.4050, L501.5200, L501.2300 ####[facility] [address] [place], [address] MCHC (RBC) [Mass/Vol] 32.8 g/dL Normal 32-36 [facility] Comment on above: Performed By: #### L 100.0100, L500.4050, L501.5200, L501.2300 ####[facility] [address] [place], [address] MCV (RBC) [Entitic vol] 95.3 fL High 80-94 [facility] Comment on above: Performed By: #### L 100.0100, L500.4050, L501.5200, L501.2300 ####[facility] [address] [place], [address] Monocytes/100 WBC (Bld) 15.2 % High 0-10 [facility] Comment on above: Performed By: #### L 100.0100, L500.4050, L501.5200, L501.2300 ####[facility] [address] [place], [address] Neutrophils/100 WBC (Bld) 60.3 % Normal 47-70 [facility] Comment on above: Performed By: #### L 100.0100, L500.4050, L501.5200, L501.2300 ####[facility] [address] [place], [address] Nucleated RBC (Bld) [#/Vol] 0 10*3/uL Normal 0-5 [facility] Comment on above: Performed By: #### L 100.0100, L500.4050, L501.5200, L501.2300 ####[facility] [address] [place], [address] Platelet mean volume (Bld) [Entitic vol] 9.9 fL Normal 6.2-12.0 [facility] Comment on above: Performed By: #### L 100.0100, L500.4050, L501.5200, L501.2300 ####[facility] [address] [place], [address] Platelets (Bld) [#/Vol] 242 10*3/uL Normal 150-450 [facility] Comment on above: Performed By: #### L 100.0100, L500.4050, L501.5200, L501.2300 ####[facility] [id number] [place], [address] RBC (Bld) [#/Vol] 4.26 10*6/uL Low 4.6-6.2 [facility] Comment on above: Performed By: #### L 100.0100, L500.4050, L501.5200, L501.2300 ####[facility] [facility] [address] [place], [address] RDW SD 46.7 fl High 35.1-43.9 [facility] Comment on above: Performed By: #### L 100.0100, L500.4050, L501.5200, L501.2300 ####[facility] [address] [place], [address] WBC (Bld) [#/Vol] 4.7 10*3/uL Normal 4.4-11.0 [facility] Comment on above: Performed By: #### L 100.0100, L500.4050, L501.5200, L501.2300 ####[facility] [address] [place], [address] COVID 19 AG RAPID (ОЛЕГ Dixon)on 08-26-2024 SARS-CoV-2 (COVID-19) RNA ALEENA+probe Ql (Unsp spec) Normal [facility] Comment on above: Performed By: #### M 100.505 ####[facility] [address] [place], [address] COVID-19 virus antigen assay Ordered By: Celia Toribio on 08-26-2024 SARS-CoV-2 (COVID-19) Ag IA.rapid Ql (Resp) [facility] Comprehensive Metabolic Prof ilon 08-26-2024 Albumin [Mass/Vol] 4.0 g/dL Normal 3.4-4.8 [facility] Comment on above: Performed By: #### L 100.0100, L500.4050, L501.5200, L501.2300 ####[facility] [address] [place], [address] Albumin/Globulin [Mass ratio] 1.4 {ratio} Normal 0.9-2.4 [facility] Comment on above: Performed By: #### L 100.0100, L500.4050, L501.5200, L501.2300 ####[facility] [address] [place], [address] ALK PHOS 67 U/L Normal 40-129 [facility] Comment on above: Performed By: #### L 100.0100, L500.4050, L501.5200, L501.2300 ####[facility] [address] [place], [address] ALT [Catalytic activity/Vol] 28 U/L Normal <=46 [facility] Comment on above: Performed By: #### L 100.0100, L500.4050, L501.5200, L501.2300 ####[facility] [address] [place], [address] AST [Catalytic activity/Vol] 23 U/L Normal <=37 [facility] Comment on above: Performed By: #### L 100.0100, L500.4050, L501.5200, L501.2300 ####[facility] [address] [place], [address] Bilirubin [Mass/Vol] 0.25 mg/dL Normal 0.00-1.30 [facility] Comment on above: Performed By: #### L 100.0100, L500.4050, L501.5200, L501.2300 ####[facility] [address] [place], [address] BUN/CRE 21.8 RATIO High 10-20 [facility] Comment on above: Performed By: #### L 100.0100, L500.4050, L501.5200, L501.2300 ####[facility] [address] [place], [address] Calcium [Mass/Vol] 9.4 mg/dL Normal 7.6-11.0 [facility] Comment on above: Performed By: #### L 100.0100, L500.4050, L501.5200, L501.2300 ####[facility] [address] [place], [address] Chloride [Moles/Vol] 105 mmol/L Normal 98-108 [facility] Comment on above: Performed By: #### L 100.0100, L500.4050, L501.5200, L501.2300 ####[facility] [address] [place], [address] CO2 [Moles/Vol] 17.6 mmol/L Low 21.0-32.0 [facility] Comment on above: Performed By: #### L 100.0100, L500.4050, L501.5200, L501.2300 ####[facility] [address] [place], [address] Creatinine [Mass/Vol] 1.04 mg/dL Normal 0.70-1.20 [facility] Comment on above: Performed By: #### L 100.0100, L500.4050, L501.5200, L501.2300 ####[facility] [address] [place], [address] ECRCL 58.77 ml/min Normal 50-250 [facility] Comment on above: Performed By: #### L 100.0100, L500.4050, L501.5200, L501.2300 ####[facility] [address] [place], [address] GAP 16 High 5-15 [facility] Comment on above: Performed By: #### L 100.0100, L500.4050, L501.5200, L501.2300 ####[facility] [address] [place], [address] GFR/1.73 sq M.predicted among non-blacks MDRD (S/P/Bld) [Vol rate/Area] 75 mL/min/{1.73_m2} Normal >60 [facility] Comment on above: Result Comment: mL/m in/1.73m2 CKD-EPI Creatinine Equation (2020) Performed By: #### L 100.0100, L500.4050, L501.5200, L501.2300 ####[facility] [address] [place], [address] Globulin (S) [Mass/Vol] 2.9 g/dL Normal 2.2-4.2 [facility] Comment on above: Performed By: #### L 100.0100, L500.4050, L501.5200, L501.2300 ####[facility] [address] [place], [address] Glucose [Mass/Vol] 88 mg/dL Normal 70-99 [facility] Comment on above: Performed By: #### L 100.0100, L500.4050, L501.5200, L501.2300 ####[facility] [address] [place], [address] Potassium [Moles/Vol] 3.6 mmol/L Normal 3.3-5.1 [facility] Comment on above: Performed By: #### L 100.0100, L500.4050, L501.5200, L501.2300 ####[facility] [address] [place], [address] Sodium [Moles/Vol] 139 mmol/L Normal 133-145 [facility] Comment on above: Performed By: #### L 100.0100, L500.4050, L501.5200, L501.2300 ####[facility] [address] [place], [address] T PROT 6.9 g/dL Normal 5.9-8.4 [facility] Comment on above: Performed By: #### L 100.0100, L500.4050, L501.5200, L501.2300 ####[facility] [address] [place], [address] Urea nitrogen [Mass/Vol] 23 mg/dL High 4-19 [facility] Comment on above: Performed By: #### L 100.0100, L500.4050, L501.5200, L501.2300 ####[facility] [address] [place], [address] Laboratory - Chemistry and C hemistry - challengeOrdered By: Lisha Talamantes on 08-26-2024 AST [Catalytic activity/Vol] 23 U/L <38 [facility] Lactic Acidon 08-26-2024 Lactate [Moles/Vol] 1.1 mmol/L Normal 0.0-2.0 [facility] Comment on above: Order Comment: Y Performed By: #### L 503.6005 ####[facility] [address] [place], [address] Lactic acid measurementOrder ed By: Celia Toribio on 08-26-2024 Lactate [Moles/Vol] 1.1 mmol/L 0.0-2.0 [facility] Magnesiumon 08-26-2024 Magnesium [Mass/Vol] 1.9 mg/dL Normal 1.5-2.2 [facility] Comment on above: Performed By: #### L 100.0100, L500.4050, L501.5200, L501.2300 ####[facility] [address] [place], [address] Magnesium (Unsp spec) [Mass/ Vol]Ordered By: Lisha Talamantes on 08-26-2024 Magnesium [Mass/Vol] 1.9 mg/dL 1.5-2.2 [facility] Magnesium measurement (mass/ volume)Ordered By: Lisha Talamantes on 08-26-2024 Magnesium (Unsp spec) [Mass/Vol] 1.9 mg/dL 1.5-2.2 [facility] No Panel InformationOrdered By: Lisha Talamantes on 08-26-2024 23 U/L <38 [facility] Phosphoruson 08-26-2024 Phosphate [Mass/Vol] 3.1 mg/dL Normal 2.7-4.5 [facility] Comment on above: Performed By: #### L 100.0100, L500.4050, L501.5200, L501.2300 ####[facility] [address] [facility] [place], [place], [address] RESPIRATORY PANEL MOLECULARo n 08-26-2024 RP PANEL Normal [facility] Comment on above: Performed By: #### M 100.638 ####[facility] [address] [place], [place], [id number] Respiratory pathogens DNA an d RNA panel ALEENA+probe (Resp)Ordered By: Celia Toribio on 08-26-2024 Respiratory Panel (PCR) [facility] Respiratory pathogens detect ion panel by molecular detection methodOrdered By: Celia Toribio on 08-26-2024 Respiratory pathogens DNA and RNA panel ALEENA+probe (Resp) [facility] SARS-CoV-2 (COVID-19) Ag IA. rapid Ql (Resp)Ordered By: Celia Toribio on 08-26-2024 SARS-CoV-2 Antigen (Rapid) [facility] Serum globulin measurementOr dered By: Lisha Talamantes on 08-26-2024 Globulin (S) [Mass/Vol] 2.9 g/dL 2.2-4.2 [facility] Serum or plasma alanine saul otransferase (ALT) measurementOrdered By: Lisha Talamantes on 08-26-2024 ALT [Catalytic activity/Vol] 28 U/L <47 [facility] Serum or plasma albumin luis urement (mass/volume)Ordered By: Lisha Talamantes on 08-26-2024 Albumin [Mass/Vol] 4.0 g/dL 3.4-4.8 [facility] Serum or plasma albumin/glob ulin mass ratioOrdered By: Lisha Talamantes on 08-26-2024 Albumin/Globulin [Mass ratio] 1.4 {ratio} 0.9-2.4 [facility] Serum or plasma alkaline kathleen sphatase measurementOrdered By: Lisha Talamantes on 08-26-2024 ALP [Catalytic activity/Vol] 67 U/L 40-129 [facility] Serum phosphorus measurement Ordered By: Lisha Talamantes on 08-26-2024 Phosphorus Level 3.1 mg/dL 2.7-4.5 [facility] Total proteinOrdered By: Ying Talamantes on 08-26-2024 Protein [Mass/Vol] 6.9 g/dL 5.9-8.4 [facility] Absolute neutrophil countOrd ered By: Jaden Jauregui on 08-25-2024 Neutrophils (Bld) [#/Vol] 4.6 10*3/uL 2.0-7.7 [facility] Anion gap in Serum or Plasma Ordered By: Jaden Jauregui on 08-25-2024 Anion gap [Moles/Vol] 13 mmol/L 5-15 [facility] BUN/creatinine ratioOrdered By: Jaden Jauregui on 08-25-2024 Urea nitrogen/Creatinine [Mass ratio] 21.4 mg/mg High 10-20 [facility] Basophil percentageOrdered B y: Jaden Jauregui on 08-25-2024 Basophils/100 WBC (Bld) 0.8 % 0-1 [facility] Bilirubin, totalOrdered By: Jaden Jauregui on 08-25-2024 Bilirubin [Mass/Vol] 0.22 mg/dL 0.00-1.30 [facility] CBC W/Diff, Automatedon Absolute Lymph 0.61 X10 3/uL Low 0.83-4.51 [facility] Comment on above: Performed By: #### L 500.4050, L100.0100 ####[facility] [address] [place], [address] Absolute Neut 4.6 X10 3/uL Normal 2.0-7.7 [facility] Comment on above: Performed By: #### L 500.4050, L100.0100 ####[facility] [address] [place], [address] Basophils/100 WBC (Bld) 0.8 % Normal 0-1 [facility] Comment on above: Performed By: #### L 500.4050, L100.0100 ####[facility] [address] [place], [address] Eosinophils/100 WBC (Bld) 0.3 % Normal 0-5 [facility] Comment on above: Performed By: #### L 500.4050, L100.0100 ####[facility] [address] [place], [address] Erythrocyte distribution width (RBC) [Ratio] 13.2 % Normal 11.6-14.6 [facility] Comment on above: Performed By: #### L 500.4050, L100.0100 ####[facility] [address] [place], [address] Hematocrit (Bld) [Volume fraction] 43.3 % Normal 40-54 [facility] Comment on above: Performed By: #### L 500.4050, L100.0100 ####[facility] [address] [place], [address] Hemoglobin (Bld) [Mass/Vol] 14.2 g/dL Normal 13.0-16.5 [facility] Comment on above: Performed By: #### L 500.4050, L100.0100 ####[facility] [address] [place], [address] IG% 0.300 Normal 0.0-0.9 [facility] Comment on above: Result Comment: IG% - Immature Granulocytes (promyelocytes, myelocytes andmetamyelocytes) > 1% indicates that a LEFT SHIFT is Present. Performed By: #### L 500.4050, L100.0100 ####[facility] [address] [place], [address] Lymphocytes/100 WBC (Bld) 10.3 % Low 19-41 [facility] Comment on above: Performed By: #### L 500.4050, L100.0100 ####[facility] [address], [address] MCH (RBC) [Entitic mass] 31.4 pg Normal 27.0-32.0 [facility] Comment on above: Performed By: #### L 500.4050, L100.0100 ####[facility] [address] [place], [address] MCHC (RBC) [Mass/Vol] 32.8 g/dL Normal 32-36 [facility] Comment on above: Performed By: #### L 500.4050, L100.0100 ####[facility] [address] [place], [address] MCV (RBC) [Entitic vol] 95.8 fL High 80-94 [facility] Comment on above: Performed By: #### L 500.4050, L100.0100 ####[facility] [address] [place], [address] Monocytes/100 WBC (Bld) 9.9 % Normal 0-10 [facility] Comment on above: Performed By: #### L 500.4050, L100.0100 ####[facility] [address] [place], [address] Neutrophils/100 WBC (Bld) 78.4 % High 47-70 [facility] Comment on above: Performed By: #### L 500.4050, L100.0100 ####[facility] [address] [place], [address] Nucleated RBC (Bld) [#/Vol] 0 10*3/uL Normal 0-5 [facility] Comment on above: Performed By: #### L 500.4050, L100.0100 ####[facility] [address] [place], [address] Platelet mean volume (Bld) [Entitic vol] 9.5 fL Normal 6.2-12.0 [facility] Comment on above: Performed By: #### L 500.4050, L100.0100 ####[facility] [address] [place], [address] Platelets (Bld) [#/Vol] 245 10*3/uL Normal 150-450 [facility] Comment on above: Performed By: #### L 500.4050, L100.0100 ####[facility] [address] [place], [address] RBC (Bld) [#/Vol] 4.52 10*6/uL Low 4.6-6.2 [facility] Comment on above: Performed By: #### L 500.4050, L100.0100 ####[facility] [address] [place], [address] RDW SD 46.6 fl High 35.1-43.9 [facility] Comment on above: Performed By: #### L 500.4050, L100.0100 ####[facility] [address] [place], [address] WBC (Bld) [#/Vol] 5.9 10*3/uL Normal 4.4-11.0 [facility] Comment on above: Performed By: #### L 500.4050, L100.0100 ####[facility] [address] [place], [address] Carbon dioxide, total [Moles /volume] in Central venous bloodOrdered By: Jaden Jauregui on 08-25-2024 CO2 [Moles/Vol] 24.5 mmol/L 21.0-32.0 [facility] Chest 1 View (Portable)on Chest 1 View (Portable) Normal [facility] Chloride assayOrdered By: Joseph Jauregui on 08-25-2024 Chloride [Moles/Vol] 102 mmol/L 98-108 [facility] Comprehensive Metabolic Prof ilon 08-25-2024 Albumin [Mass/Vol] 4.5 g/dL Normal 3.4-4.8 [facility] Comment on above: Performed By: #### L 500.4050, L100.0100 ####[facility] [address] [place], [address] Albumin/Globulin [Mass ratio] 1.4 {ratio} Normal 0.9-2.4 [facility] Comment on above: Performed By: #### L 500.4050, L100.0100 ####[facility] [address] [place], [address] ALK PHOS 77 U/L Normal 40-129 [facility] Comment on above: Performed By: #### L 500.4050, L100.0100 ####[facility] [address] [place], [address] ALT [Catalytic activity/Vol] 32 U/L Normal <=46 [facility] Comment on above: Performed By: #### L 500.4050, L100.0100 ####[facility] [address] [place], [address] AST [Catalytic activity/Vol] 26 U/L Normal <=37 [facility] Comment on above: Performed By: #### L 500.4050, L100.0100 ####[facility] [address] [place], [address] Bilirubin [Mass/Vol] 0.22 mg/dL Normal 0.00-1.30 [facility] Comment on above: Performed By: #### L 500.4050, L100.0100 ####[facility] [address] [place], [address] BUN/CRE 21.4 RATIO High 10-20 [facility] Comment on above: Performed By: #### L 500.4050, L100.0100 ####[facility] [address] [place], [address] Calcium [Mass/Vol] 10.0 mg/dL Normal 7.6-11.0 [facility] Comment on above: Performed By: #### L 500.4050, L100.0100 ####[facility] [address] [place], [address] Chloride [Moles/Vol] 102 mmol/L Normal 98-108 [facility] Comment on above: Performed By: #### L 500.4050, L100.0100 ####[facility] [address] [place], [address] CO2 [Moles/Vol] 24.5 mmol/L Normal 21.0-32.0 [facility] Comment on above: Performed By: #### L 500.4050, L100.0100 ####[facility] [address] [place], [address] Creatinine [Mass/Vol] 1.17 mg/dL Normal 0.70-1.20 [facility] Comment on above: Performed By: #### L 500.4050, L100.0100 ####[facility] [address] [place], [address] GAP 13 Normal 5-15 [facility] Comment on above: Performed By: #### L 500.4050, L100.0100 ####[facility] [address] [place], [address] GFR/1.73 sq M.predicted among non-blacks MDRD (S/P/Bld) [Vol rate/Area] 65 mL/min/{1.73_m2} Normal >60 [facility] Comment on above: Result Comment: mL/m in/1.73m2 CKD-EPI Creatinine Equation (2020) Performed By: #### L 500.4050, L100.0100 ####[facility] [address] [place], [address] Globulin (S) [Mass/Vol] 3.2 g/dL Normal 2.2-4.2 [facility] Comment on above: Performed By: #### L 500.4050, L100.0100 ####[facility] [address] [place], [address] Glucose [Mass/Vol] 98 mg/dL Normal 70-99 [facility] Comment on above: Performed By: #### L 500.4050, L100.0100 ####[facility] [address] [place], [address] Potassium [Moles/Vol] 3.8 mmol/L Normal 3.3-5.1 [facility] Comment on above: Performed By: #### L 500.4050, L100.0100 ####[facility] [address] [place], [address] Sodium [Moles/Vol] 139 mmol/L Normal 133-145 [facility] Comment on above: Performed By: #### L 500.4050, L100.0100 ####[facility] [address] [place], [address] T PROT 7.7 g/dL Normal 5.9-8.4 [facility] Comment on above: Performed By: #### L 500.4050, L100.0100 ####[facility] [address] [place], [address] Urea nitrogen [Mass/Vol] 25 mg/dL High 4-19 [facility] Comment on above: Performed By: #### L 500.4050, L100.0100 ####[facility] [address] [place], [address] Emergency Department Summary on 08-25-2024 Emergency Department Summary Normal [facility] Eosinophil percentageOrdered By: Jaden Jauregui on 08-25-2024 Eosinophils/100 WBC (Bld) 0.3 % 0-5 [facility] Erythrocyte distribution wid th ratioOrdered By: Jaden Jauregui on 08-25-2024 Erythrocyte distribution width (RBC) [Ratio] 13.2 % 11.6-14.6 [facility] Erythrocyte distribution wid th standard deviationOrdered By: Jaden Jauregui on 08-25-2024 Erythrocyte distribution width (RBC) [Entitic vol] 46.6 fL High 35.1-43.9 [facility] GFR/1.73 sq M.predicted gisella g non-blacks MDRD (S/P/Bld) [Vol rate/Area]Ordered By: Jaden Jauregui on 08-25-2024 Estimated GFR (MDRD) Non-Af Amer 65 >60 [facility] Comment on above: mL/min/1.73m2 CKD-EP I Creatinine Equation (2020) H AND P Exam - [place] 08-25-2024 H&P Exam - Hospitalist Normal [place] Hematocrit Auto (Bld) [Volum e fraction]Ordered By: Jaden Jauregui on 08-25-2024 Hematocrit (Bld) [Volume fraction] 43.3 % 40-54 [facility] Hemoglobin measurementOrdere d By: Jaden Jauregui on 08-25-2024 Hemoglobin (Bld) [Mass/Vol] 14.2 g/dL 13.0-16.5 [facility] Immature granulocytes/100 WB C Auto (Bld)Ordered By: Jaden Jauregui on 08-25-2024 Immature granulocytes/100 WBC (Bld) 0.300 % 0.0-0.9 [facility] Comment on above: IG% - Immature Granu locytes (promyelocytes, myelocytes and metamyelocytes) > 1% indicates that a LEFT SHIFT is Present. Laboratory - Chemistry and C hemistry - challengeOrdered By: Jaden Jauregui on 03-09-2025 AST [Catalytic activity/Vol] 26 U/L <38 [facility] Lymphocytes Auto (Unsp spec) [#/Vol]Ordered By: Jaden Jauregui on 08-25-2024 Lymphocytes (Bld) [#/Vol] 0.61 10*3/uL Low 0.83-4.51 [facility] Lymphocytes/100 WBC Auto (Un sp spec)Ordered By: Jaden Jauregui on 08-25-2024 Lymphocytes/100 WBC (Bld) 10.3 % Low 19-41 [facility] MCV (mean corpuscular volume ) determinationOrdered By: Jaden Jauregui on 08-25-2024 MCV (RBC) [Entitic vol] 95.8 fL High 80-94 [facility] Mean corpuscular hemoglobin (MCH) determinationOrdered By: Jaden Jauregui on 08-25-2024 MCH (RBC) [Entitic mass] 31.4 pg 27.0-32.0 [facility] Mean corpuscular hemoglobin concentration (MCHC) determinationOrdered By: Jaden Jauregui on 08-25-2024 MCHC (RBC) [Mass/Vol] 32.8 g/dL 32-36 [facility] Mean platelet volume determi nationOrdered By: Jaden Jauregui on 08-25-2024 Platelet mean volume (Bld) [Entitic vol] 9.5 fL 6.2-12.0 [facility] Monocyte percentageOrdered B y: Jaden Jauregui on 08-25-2024 Monocytes/100 WBC (Bld) 9.9 % 0-10 [facility] Neutrophil percentageOrdered By: Jaden Jauregui on 08-25-2024 Neutrophils/100 WBC (Bld) 78.4 % High 47-70 [facility] Nucleated red blood cell per centageOrdered By: Jaden Jauregui on 08-25-2024 Nucleated RBC/100 WBC (Bld) [Ratio] 0 % 0-5 [facility] Platelet countOrdered By: Joseph Jauregui on 08-25-2024 Platelets (Bld) [#/Vol] 245 10*3/uL 150-450 [facility] Potassium (Unsp spec) [Mass/ Vol]Ordered By: Jaden Jauregui on 08-25-2024 Potassium [Moles/Vol] 3.8 mmol/L 3.3-5.1 [facility] RBC Auto (Bld) [#/Vol]Ordere d By: Jaden Jauregui on 08-25-2024 RBC (Bld) [#/Vol] 4.52 10*6/uL Low 4.6-6.2 [facility] Serum creatinine measurement (mass/volume)Ordered By: Jaden Jauregui on 08-25-2024 Creatinine [Mass/Vol] 1.17 mg/dL 0.70-1.[facility] [facility] Serum globulin measurementOr dered By: Jaden Jauregui on 08-25-2024 Globulin (S) [Mass/Vol] 3.2 g/dL 2.2-4.2 [facility] Serum glucose measurement (m ass/volume)Ordered By: Jaden Jauregui on 08-25-2024 Glucose [Mass/Vol] 98 mg/dL 70-99 [facility] Serum or plasma alanine saul otransferase (ALT) measurementOrdered By: Jaden Jauregui on 08-25-2024 ALT [Catalytic activity/Vol] 32 U/L <47 [facility] Serum or plasma albumin luis urement (mass/volume)Ordered By: Jaden Jauregui on 08-25-2024 Albumin [Mass/Vol] 4.5 g/dL 3.4-4.8 [facility] Serum or plasma albumin/glob ulin mass ratioOrdered By: Jaden Jauregui on 08-25-2024 Albumin/Globulin [Mass ratio] 1.4 {ratio} 0.9-2.4 [facility] Serum or plasma alkaline kathleen sphatase measurementOrdered By: Jaden Jauregui on 08-25-2024 ALP [Catalytic activity/Vol] 77 U/L 40-129 [facility] Serum or plasma calcium luis urement (mass/volume)Ordered By: Jaden Jauregui on 08-25-2024 Calcium [Mass/Vol] 10.0 mg/dL 7.6-11.0 [facility] Serum or plasma urea nitroge n measurement (mass/volume)Ordered By: Jaden Jauregui on 08-25-2024 Urea nitrogen [Mass/Vol] 25 mg/dL High 4-19 [facility] Sodium levelOrdered By: Maurice Jauregui on 08-25-2024 Sodium [Moles/Vol] 139 mmol/L 133-145 [facility] Total proteinOrdered By: Rad barakat Shania on 08-25-2024 Protein [Mass/Vol] 7.7 g/dL 5.9-8.4 [facility] White blood cell (WBC) count Ordered By: Jaden Shania on 08-25-2024 WBC (Bld) [#/Vol] 5.9 10*3/uL 4.4-11.0 [facility] 89-XG-Gexudjw DOrdered By: Landry Prather on 07-15-2024 Vitamin D 25-Hydroxy 36.0 ng/mL [facility] Comment on above: Vitamin D 25(OH) Sta tus Range Deficiency <20 ng/mL (50nmol/L) Insufficiency 20 - 30 ng/mL (50 - 75 nmol/L) Sufficiency 30 - 100 ng/mL (75 - 250 nmol/L) Toxicity >100 ng/mL (>250 nmol/L) Absolute neutrophil countOrd ered By: Carla Prather on 07-15-2024 Neutrophils (Bld) [#/Vol] 2.7 10*3/uL 2.0-7.7 [facility] Albumin to globulin ratioOrd ered By: Carla Prather on 07-15-2024 Albumin/Globulin [Mass ratio] 1.0 {ratio} Normal 0.9-2.4 [facility] Comment on above: Order Comment: 414-2 Performed By: #### L 501.7900, L503.0105, L500.4050, L100.0100, L506.1000, L501.9985, L501.5200 ####[facility] [address] [place], [address] Basophil percentageOrdered B y: Carla Prather on 07-15-2024 Basophils/100 WBC (Bld) 1.4 % High 0-1 [facility] Bilirubin, totalOrdered By: Carla Prather on 07-15-2024 Bilirubin [Mass/Vol] 0.30 mg/dL Normal 0.20-1.00 [facility] Comment on above: For patients on eltr ombopag therapy, use of Dimension [place] TBIL is not recommended. Order Comment: 414-2 Result Comment: For patients on eltrombopag therapy, use of Dimension [place] TBIL is not recommended. Performed By: #### L 501.7900, L503.0105, L500.4050, L100.0100, L506.1000, L501.9985, L501.5200 ####[facility] [address] [place], [address] Blood urea nitrogen (BUN)/cr eatinine ratioOrdered By: Carla Prather on 07-15-2024 Urea nitrogen/Creatinine [Mass ratio] 25.4 mg/mg High 10-20 [facility] CBC W/Diff, Automatedon 06-20 Absolute Lymph 1.38 X10 3/uL Normal 0.83-4.51 [facility] Comment on above: Order Comment: 414-2 Performed By: #### L 501.7900, L503.0105, L500.4050, L100.0100, L506.1000, L501.9985, L501.5200 ####[facility] [address] [place], [place], [phone]) Absolute Neut 2.7 X10 3/uL Normal 2.0-7.7 [facility] Comment on above: Order Comment: 414-2 Performed By: #### L 501.7900, L503.0105, L500.4050, L100.0100, L506.1000, L501.9985, L501.5200 ####[facility] [address] [place], [place], [phone] Basophils/100 WBC (Bld) 1.4 % High 0-1 [facility] Comment on above: Order Comment: 414-2 Performed By: #### L 501.7900, L503.0105, L500.4050, L100.0100, L506.1000, L501.9985, L501.5200 ####[facility] [address] [place], [address] Eosinophils/100 WBC (Bld) 9.4 % High 0-5 [facility] Comment on above: Order Comment: 414-2 Performed By: #### L 501.7900, L503.0105, L500.4050, L100.0100, L506.1000, L501.9985, L501.5200 ####[facility] [address] [place], [address] Erythrocyte distribution width (RBC) [Ratio] 12.8 % Normal 11.6-14.6 [facility] Comment on above: Order Comment: 414-2 Performed By: #### L 501.7900, L503.0105, L500.4050, L100.0100, L506.1000, L501.9985, L501.5200 ####[facility] [address] [place], [address] Hematocrit (Bld) [Volume fraction] 45.8 % Normal 40-54 [facility] Comment on above: Order Comment: 414-2 Performed By: #### L 501.7900, L503.0105, L500.4050, L100.0100, L506.1000, L501.9985, L501.5200 ####[facility] [address] [place], [address] Hemoglobin (Bld) [Mass/Vol] 14.8 g/dL Normal 13.0-16.5 [facility] Comment on above: Order Comment: 414-2 Performed By: #### L 501.7900, L503.0105, L500.4050, L100.0100, L506.1000, L501.9985, L501.5200 ####[facility] [address] [place], [address] IG% 0.400 Normal 0.0-0.9 [facility] Comment on above: Order Comment: 414-2 Result Comment: IG% - Immature Granulocytes (promyelocytes, myelocytes andmetamyelocytes) > 1% indicates that a LEFT SHIFT is Present. Performed By: #### L 501.7900, L503.0105, L500.4050, L100.0100, L506.1000, L501.9985, L501.5200 ####[facility] [address] [place], [address] Lymphocytes/100 WBC (Bld) 26.9 % Normal 19-41 [facility] Comment on above: Order Comment: 414-2 Performed By: #### L 501.7900, L503.0105, L500.4050, L100.0100, L506.1000, L501.9985, L501.5200 ####[facility] [address] [place], [address] MCH (RBC) [Entitic mass] 31.2 pg Normal 27.0-32.0 [facility] Comment on above: Order Comment: 414-2 Performed By: #### L 501.7900, L503.0105, L500.4050, L100.0100, L506.1000, L501.9985, L501.5200 ####[facility] [address] [place], [address] MCHC (RBC) [Mass/Vol] 32.3 g/dL Normal 32-36 [facility] Comment on above: Order Comment: 414-2 Performed By: #### L 501.7900, L503.0105, L500.4050, L100.0100, L506.1000, L501.9985, L501.5200 ####[facility] [address] [place], [address] MCV (RBC) [Entitic vol] 96.4 fL High 80-94 [facility] Comment on above: Order Comment: 414-2 Performed By: #### L 501.7900, L503.0105, L500.4050, L100.0100, L506.1000, L501.9985, L501.5200 ####[facility] [address] [place], [address] Monocytes/100 WBC (Bld) 8.8 % Normal 0-10 [facility] Comment on above: Order Comment: 414-2 Performed By: #### L 501.7900, L503.0105, L500.4050, L100.0100, L506.1000, L501.9985, L501.5200 ####[facility] [address] [place], [address] Neutrophils/100 WBC (Bld) 53.1 % Normal 47-70 [facility] Comment on above: Order Comment: 414-2 Performed By: #### L 501.7900, L503.0105, L500.4050, L100.0100, L506.1000, L501.9985, L501.5200 ####[facility] [address] [place], [address] Nucleated RBC (Bld) [#/Vol] 0 10*3/uL Normal 0-5 [facility] Comment on above: Order Comment: 414-2 Performed By: #### L 501.7900, L503.0105, L500.4050, L100.0100, L506.1000, L501.9985, L501.5200 ####[facility] [address] [place], [address] Platelet mean volume (Bld) [Entitic vol] 9.6 fL Normal 6.2-12.0 [facility] Comment on above: Order Comment: 414-2 Performed By: #### L 501.7900, L503.0105, L500.4050, L100.0100, L506.1000, L501.9985, L501.5200 ####[facility] [address] [place], [address] Platelets (Bld) [#/Vol] 295 10*3/uL Normal 150-450 [facility] Comment on above: Order Comment: 414-2 Performed By: #### L 501.7900, L503.0105, L500.4050, L100.0100, L506.1000, L501.9985, L501.5200 ####[facility] [address] [place], [address] RBC (Bld) [#/Vol] 4.75 10*6/uL Normal 4.6-6.2 [facility] Comment on above: Order Comment: 414-2 Performed By: #### L 501.7900, L503.0105, L500.4050, L100.0100, L506.1000, L501.9985, L501.5200 ####[facility] [address] [place], [address] RDW SD 45.4 fl High 35.1-43.9 [facility] Comment on above: Order Comment: 414-2 Performed By: #### L 501.7900, L503.0105, L500.4050, L100.0100, L506.1000, L501.9985, L501.5200 ####[facility] [address] [place], [address] WBC (Bld) [#/Vol] 5.1 10*3/uL Normal 4.4-11.0 [facility] Comment on above: Order Comment: 414-2 Performed By: #### L 501.7900, L503.0105, L500.4050, L100.0100, L506.1000, L501.9985, L501.5200 ####[facility] [address] [place], [address] Carbamazepine (Tegretol)on 0 07-15-2024 CARBAMAZEPINE 7.0 ug/mL Normal 4.0-12.0 [facility] Comment on above: Order Comment: 414-2 Performed By: #### L 501.7900, L503.0105, L500.4050, L100.0100, L506.1000, L501.9985, L501.5200 ####[facility] [address] [place], [place], [address] Carbon dioxide measurementOr dered By: Carla Prather on 07-15-2024 CO2 [Moles/Vol] 24.0 mmol/L Normal 21.0-32.0 [facility] Comment on above: Order Comment: 414-2 Performed By: #### L 501.7900, L503.0105, L500.4050, L100.0100, L506.1000, L501.9985, L501.5200 ####[facility] [address] [place], [place], [phone] Chloride measurementOrdered By: Carla Prather on 07-15-2024 Chloride [Moles/Vol] 107 mmol/L Normal 98-107 [facility] Comment on above: Order Comment: 414-2 Performed By: #### L 501.7900, L503.0105, L500.4050, L100.0100, L506.1000, L501.9985, L501.5200 ####[facility] [address] [place], [place], [phone] Comprehensive Metabolic Prof ilon 07-15-2024 ALK P 70 U/L Normal 45-117 [facility] Comment on above: Order Comment: 414-2 Performed By: #### L 501.7900, L503.0105, L500.4050, L100.0100, L506.1000, L501.9985, L501.5200 ####[facility] [address] [place], [place], [phone] BUN/CRE 25.4 RATIO High 10-20 [facility] Comment on above: Order Comment: 414-2 Performed By: #### L 501.7900, L503.0105, L500.4050, L100.0100, L506.1000, L501.9985, L501.5200 ####[facility] [address] [place], [place], [phone] CA,Total 10.1 mg/dL Normal 8.5-10.1 [facility] Comment on above: Order Comment: 414-2 Performed By: #### L 501.7900, L503.0105, L500.4050, L100.0100, L506.1000, L501.9985, L501.5200 ####[facility] [address] [place], [place], [phone] EST GFR - AA 77 mL/min Normal >60 [facility] Comment on above: Order Comment: - Result Comment: Afri can Indian GFR Calc Performed By: #### L 501.7900, L503.0105, L500.4050, L100.0100, L506.1000, L501.9985, L501.5200 ####[facility] [address] [place], [place], [phone] GAP 7 Normal 5-15 [facility] Comment on above: Order Comment: 414-2 Performed By: #### L 501.7900, L503.0105, L500.4050, L100.0100, L506.1000, L501.9985, L501.5200 ####[facility] [address] [place], [place], [id number] GFR/1.73 sq M.predicted among non-blacks MDRD (S/P/Bld) [Vol rate/Area] 64 mL/min/{1.73_m2} Normal >60 [facility] Comment on above: Order Comment: 414-2 Result Comment: Non- GFR Calc Performed By: #### L 501.7900, L503.0105, L500.4050, L100.0100, L506.1000, L501.9985, L501.5200 ####[facility] [address] [place], [place], [phone] T PROT 8.0 g/dL Normal 6.4-8.2 [facility] Comment on above: Order Comment: 414-2 Performed By: #### L 501.7900, L503.0105, L500.4050, L100.0100, L506.1000, L501.9985, L501.5200 ####[facility] [address] [place], [address] Comprehensive Metabolic Prof ilOrdered By: Carla Prather on 07-15-2024 AST [Catalytic activity/Vol] 23 U/L Normal 15-37 [facility] Comment on above: Order Comment: 414-2 Performed By: #### L 501.7900, L503.0105, L500.4050, L100.0100, L506.1000, L501.9985, L501.5200 ####[facility] [address] [place], [place], [address] Eosinophil percentageOrdered By: Carla Prather on 07-15-2024 Eosinophils/100 WBC (Bld) 9.4 % High 0-5 [facility] Erythrocyte distribution wid th ratioOrdered By: Carla Prather on 07-15-2024 Erythrocyte distribution width (RBC) [Ratio] 12.8 % 11.6-14.6 [facility] Erythrocyte distribution wid th standard deviationOrdered By: Carla Prather on 07-15-2024 Erythrocyte distribution width (RBC) [Entitic vol] 45.4 fL High 35.1-43.9 [facility] Estimated glomerular filtrat ion rate (GFR) AmericanOrdered By: Carla Prather on 07-15-2024 Estimated GFR (MDRD) Amer 77 mL/min >60 [facility] Comment on above: GFR Calc Glomerular filtration rate ( GFR) estimationOrdered By: Carla Prather on 07-15-2024 Estimated GFR (MDRD) Non-Af Amer 64 mL/min >60 [facility] Comment on above: Non- GFR Calc Glucose measurementOrdered B y: Carla Prather on 07-15-2024 Glucose [Mass/Vol] 103 mg/dL Normal 74-106 [facility] Comment on above: Fasting Glucose resu lt from 100 to 125 mg/dL suggests IMPAIRED HOMEOSTASIS per A.D.A. criteria. Order Comment: 414-2 Result Comment: Fast ing Glucose result from 100 to 125 mg/dLsuggests IMPAIRED HOMEOSTASIS per A.D.A. criteria. Performed By: #### L 501.7900, L503.0105, L500.4050, L100.0100, L506.1000, L501.9985, L501.5200 ####[facility] [address] [place], [address] Hematocrit Auto (Bld) [Volum e fraction]Ordered By: Carla Prather on 07-15-2024 Hematocrit (Bld) [Volume fraction] 45.8 % 40-54 [facility] Hemoglobin A1con 07-15-2024 HbA1c (Bld) [Mass fraction] 5.6 % Normal 3.8-5.6 [facility] Comment on above: Order Comment: 414-2 Result Comment: Norm al < 5.7 % Prediabetic 5.7 - 6.4 % Diabetic >or= 6.5 % Please note range changes. Performed By: #### L 501.7900, L503.0105, L500.4050, L100.0100, L506.1000, L501.9985, L501.5200 ####[facility] [address] [place], [place], [phone] Hemoglobin A1c percentageOrd ered By: Carla Prather on 07-15-2024 HbA1c (Bld) [Mass fraction] 5.6 % 3.8-5.6 [facility] Comment on above: Normal < 5.7 % Predi abetic 5.7 - 6.4 % Diabetic >or= 6.5 % Please note range changes. Hemoglobin measurementOrdere d By: Carla Prather on 07-15-2024 Hemoglobin (Bld) [Mass/Vol] 14.8 g/dL 13.0-16.5 [facility] Immature granulocytes/100 WB C Auto (Bld)Ordered By: Carla Prather on 07-15-2024 Immature granulocytes/100 WBC (Bld) 0.400 % 0.0-0.9 [facility] Comment on above: IG% - Immature Granu locytes (promyelocytes, myelocytes and metamyelocytes) > 1% indicates that a LEFT SHIFT is Present. Lymphocytes Auto (Unsp spec) [#/Vol]Ordered By: Carla Prather on 07-15-2024 Lymphocytes (Bld) [#/Vol] 1.38 10*3/uL 0.83-4.51 [facility] Lymphocytes/100 WBC Auto (Un sp spec)Ordered By: Carla Prather on 07-15-2024 Lymphocytes/100 WBC (Bld) 26.9 % 19-41 [facility] MCV (mean corpuscular volume ) determinationOrdered By: Carla Prather on 07-15-2024 MCV (RBC) [Entitic vol] 96.4 fL High 80-94 [facility] Magnesium measurementOrdered By: Carla Prather on 07-15-2024 Magnesium [Mass/Vol] 2.1 mg/dL Normal 1.6-2.6 [facility] Comment on above: Order Comment: 414-2 Performed By: #### L 501.7900, L503.0105, L500.4050, L100.0100, L506.1000, L501.9985, L501.5200 ####[facility] [address] [place], [address] Mean corpuscular hemoglobin (MCH) determinationOrdered By: Carla Prather on 07-15-2024 MCH (RBC) [Entitic mass] 31.2 pg 27.0-32.0 [facility] Mean corpuscular hemoglobin concentration (MCHC) determinationOrdered By: Carla Prather on 07-15-2024 MCHC (RBC) [Mass/Vol] 32.3 g/dL 32-36 [facility] Mean platelet volume determi nationOrdered By: Carla Prather on 07-15-2024 Platelet mean volume (Bld) [Entitic vol] 9.6 fL 6.2-12.0 [facility] Monocyte percentageOrdered B y: Carla Prather on 07-15-2024 Monocytes/100 WBC (Bld) 8.8 % 0-10 [facility] Neutrophil percentageOrdered By: Carla Prather on 07-15-2024 Neutrophils/100 WBC (Bld) 53.1 % 47-70 [facility] Nucleated red blood cell per centageOrdered By: Carla Prather on 07-15-2024 Nucleated RBC/100 WBC (Bld) [Ratio] 0 % 0-5 [facility] Platelet countOrdered By: Wilfredo Prather on 07-15-2024 Platelets (Bld) [#/Vol] 295 10*3/uL 150-450 [facility] Potassium measurementOrdered By: Carla Prather on 07-15-2024 Potassium [Moles/Vol] 3.8 mmol/L Normal 3.5-5.1 [facility] Comment on above: Order Comment: 414-2 Performed By: #### L 501.7900, L503.0105, L500.4050, L100.0100, L506.1000, L501.9985, L501.5200 ####[facility] [address] [place], [address] RBC Auto (Bld) [#/Vol]Ordere d By: Carla Prather on 07-15-2024 RBC (Bld) [#/Vol] 4.75 10*6/uL 4.6-6.2 [facility] Serum anion gap measurementO rdered By: Carla Prather on 07-15-2024 Anion gap [Moles/Vol] 7 mmol/L 5-15 [facility] Serum globulin measurementOr dered By: Carla Prather on 07-15-2024 Globulin (S) [Mass/Vol] 4.1 g/dL Normal 2.2-4.2 [facility] Comment on above: Order Comment: 414-2 Performed By: #### L 501.7900, L503.0105, L500.4050, L100.0100, L506.1000, L501.9985, L501.5200 ####[facility] [address] [place], [place], [phone] Serum or plasma alanine saul otransferase (ALT) measurementOrdered By: Carla Prather on 07-15-2024 ALT [Catalytic activity/Vol] 37 U/L Normal 16-61 [facility] Comment on above: Order Comment: 414-2 Performed By: #### L 501.7900, L503.0105, L500.4050, L100.0100, L506.1000, L501.9985, L501.5200 ####[facility] [address] [place], [place], [phone] Serum or plasma albumin luis urement (mass/volume)Ordered By: Carla Prather on 07-15-2024 Albumin [Mass/Vol] 3.9 g/dL Normal 3.2-5.0 [facility] Comment on above: Order Comment: 414-2 Performed By: #### L 501.7900, L503.0105, L500.4050, L100.0100, L506.1000, L501.9985, L501.5200 ####[facility] [address] [place], [address] Serum or plasma alkaline kathleen sphatase measurementOrdered By: Carla Prather on 07-15-2024 ALP [Catalytic activity/Vol] 70 U/L 45-117 [facility] Serum or plasma calcium luis urement (mass/volume)Ordered By: Carla Prather on 07-15-2024 Calcium [Mass/Vol] 10.1 mg/dL 8.5-10.1 [facility] Serum or plasma creatinine m easurement (mass/volume)Ordered By: Carla Prather on 07-15-2024 Creatinine [Mass/Vol] 1.18 mg/dL Normal 0.70-1.30 [facility] Comment on above: The validity of the calculated GFR & GFRAA in patients over 70 years has not been determined. Clinical correlation is essential. Order Comment: 414-2 Result Comment: The validity of the calculated GFR GFRAA in patients over70 years has not been determined. Clinical correlation isessential. Performed By: #### L 501.7900, L503.0105, L500.4050, L100.0100, L506.1000, L501.9985, L501.5200 ####[facility] [address] [place], [address] Serum or plasma urea nitroge n measurement (mass/volume)Ordered By: Carla Prather on 07-15-2024 Urea nitrogen [Mass/Vol] 30 mg/dL High 7-18 [facility] Comment on above: Order Comment: 414-2 Performed By: #### L 501.7900, L503.0105, L500.4050, L100.0100, L506.1000, L501.9985, L501.5200 ####[facility] [address] [place], [place], [id number] Sodium levelOrdered By: [place] Prather on 07-15-2024 Sodium [Moles/Vol] 138 mmol/L Normal 136-145 [facility] Comment on above: Order Comment: 414-2 Performed By: #### L 501.7900, L503.0105, L500.4050, L100.0100, L506.1000, L501.9985, L501.5200 ####[facility] [address] [place], [place], [id number] Total proteinOrdered By: Ming Prather on 07-15-2024 Protein [Mass/Vol] 8.0 g/dL 6.4-8.2 [facility] Vitamin B12on 07-15-2024 Cobalamin (Vitamin B12) [Mass/Vol] 692 pg/mL Normal 211-911 [facility] Comment on above: Order Comment: 414-2 Performed By: #### L 501.7900, L503.0105, L500.4050, L100.0100, L506.1000, L501.9985, L501.5200 ####[facility] [address] [place], [address] Vitamin B12 measurementOrder ed By: Carla Prather on 07-15-2024 Cobalamin (Vitamin B12) [Mass/Vol] 692 pg/mL 211-911 [facility] Vitamin D,25 Hydroxyon 07-15 Vitamin D 25-OH 36.0 ng/mL Normal [facility] Comment on above: Order Comment: 414-2 Result Comment: Teri min D 25(OH) Status Range Deficiency <20 ng/mL (50nmol/L) Insufficiency 20 - 30 ng/mL (50 - 75 nmol/L) Sufficiency 30 - 100 ng/mL (75 - 250 nmol/L) Toxicity >100 ng/mL (>250 nmol/L) Performed By: #### L 501.7900, L503.0105, L500.4050, L100.0100, L506.1000, L501.9985, L501.5200 ####[facility] [id number] [place], [place], [id number] White blood cell (WBC) count Ordered By: Carla Prather on 07-15-2024 WBC (Bld) [#/Vol] 5.1 10*3/uL 4.4-11.0 [facility] carBAMazepine [Mass/Vol]Orde red By: Carla Prather on 07-15-2024 Carbamazepine (Tegretol) Level 7.0 ug/mL 4.0-12.0 [facility] Basic Metabolic Profile (BMP )on 04-15-2024 BUN Normal 7-18 [facility] Comment on above: Result Comment: Bethanie luna via OM: Order cancelled - Patient discharged Performed By: #### L 100.0100, L500.2500 ####[facility] [id number] [place], [address] BUN/CRE Normal 10-20 [facility] Comment on above: Result Comment: Canc elled via OM: Order cancelled - Patient discharged Performed By: #### L 100.0100, L500.2500 ####[facility] [address] [place], [address] CA,Total Normal 8.5-10.1 [facility] Comment on above: Result Comment: Canc elled via OM: Order cancelled - Patient discharged Performed By: #### L 100.0100, L500.2500 ####[facility] [address] [place], [address] CL Normal 98-107 [facility] Comment on above: Result Comment: Canc elled via OM: Order cancelled - Patient discharged Performed By: #### L 100.0100, L500.2500 ####[facility] [address] [place], [address] CO2 Normal 21.0-32.0 [facility] Comment on above: Result Comment: Canc elled via OM: Order cancelled - Patient discharged Performed By: #### L 100.0100, L500.2500 ####[facility] [address] [place], [address] CREAT,SERUM Normal 0.70-1.30 [facility] Comment on above: Result Comment: Canc elled via OM: Order cancelled - Patient discharged Performed By: #### L 100.0100, L500.2500 ####[facility] [address] [place], [address] EST GFR Normal >60 [facility] Comment on above: Result Comment: Canc elled via OM: Order cancelled - Patient discharged Performed By: #### L 100.0100, L500.2500 ####[facility] [address] [place], [address] EST GFR - AA Normal >60 [facility] Comment on above: Result Comment: Canc elled via OM: Order cancelled - Patient discharged Performed By: #### L 100.0100, L500.2500 ####[facility] [address] [place], [address] GAP Normal 5-15 [facility] Comment on above: Result Comment: Canc elled via OM: Order cancelled - Patient discharged Performed By: #### L 100.0100, L500.2500 ####[facility] [address] [place], [address] GLU Normal 74-106 [facility] Comment on above: Result Comment: Canc elled via OM: Order cancelled - Patient discharged Performed By: #### L 100.0100, L500.2500 ####[facility] [address] [place], [address] Potassium Normal 3.5-5.1 [facility] Comment on above: Result Comment: Canc elled via OM: Order cancelled - Patient discharged Performed By: #### L 100.0100, L500.2500 ####[facility] [address] [place], [address] Basic Metabolic Profile (BMP) Normal 136-145 [facility] Comment on above: Result Comment: Canc elled via OM: Order cancelled - Patient discharged Performed By: #### L 100.0100, L500.2500 ####[facility] [address] [place], [address] CBC W/Diff, Automatedon 10-2 Absolute Neut Normal 2.0-7.7 [facility] Comment on above: Result Comment: Canc elled via OM: Order cancelled - Patient discharged Performed By: #### L 100.0100, L500.2500 ####[facility] [address] [place], [address] HCT Normal 40-54 [facility] Comment on above: Result Comment: Canc elled via OM: Order cancelled - Patient discharged Performed By: #### L 100.0100, L500.2500 ####[facility] [address] [place], [address] HGB Normal 13.0-16.5 [facility] Comment on above: Result Comment: Canc elled via OM: Order cancelled - Patient discharged Performed By: #### L 100.0100, L500.2500 ####[facility] [address] [place], [address] MCH Normal 27.0-32.0 [facility] Comment on above: Result Comment: Canc elled via OM: Order cancelled - Patient discharged Performed By: #### L 100.0100, L500.2500 ####[facility] [address] [place], [address] MCHC Normal 32-36 [facility] Comment on above: Result Comment: Canc elled via OM: Order cancelled - Patient discharged Performed By: #### L 100.0100, L500.2500 ####[facility] [address] [place], [address] MCV Normal 80-94 [facility] Comment on above: Result Comment: Canc elled via OM: Order cancelled - Patient discharged Performed By: #### L 100.0100, L500.2500 ####[facility] [address] [place], [address] NEUT% Normal 47-70 [facility] Comment on above: Result Comment: Canc elled via OM: Order cancelled - Patient discharged Performed By: #### L 100.0100, L500.2500 ####[facility] [address] [place], [address] PLT Normal 150-450 [facility] Comment on above: Result Comment: Canc elled via OM: Order cancelled - Patient discharged Performed By: #### L 100.0100, L500.2500 ####[facility] [address] [place], [address] RBC Normal 4.6-6.2 [facility] Comment on above: Result Comment: Canc elled via OM: Order cancelled - Patient discharged Performed By: #### L 100.0100, L500.2500 ####[facility] [address] [place], [address] RDW CV Normal 11.6-14.6 [facility] Comment on above: Result Comment: Canc elled via OM: Order cancelled - Patient discharged Performed By: #### L 100.0100, L500.2500 ####[facility] [address] [place], [address] RDW SD Normal 35.1-43.9 [facility] Comment on above: Result Comment: Canc elled via OM: Order cancelled - Patient discharged Performed By: #### L 100.0100, L500.2500 ####[facility] [address] [place], [address] WBC Normal 4.4-11.0 [facility] Comment on above: Result Comment: Canc elled via OM: Order cancelled - Patient discharged Performed By: #### L 100.0100, L500.2500 ####[facility] [address] [place], [address] Basic Metabolic Profile (BMP )on 04-14-2024 BUN Normal -18 [facility] Comment on above: Result Comment: Canc elled via OM: Order cancelled - Patient discharged Performed By: #### L 100.0100, L500.2500 ####[facility] [address] [place], [address] BUN/CRE Normal 10-20 [facility] Comment on above: Result Comment: Canc elled via OM: Order cancelled - Patient discharged Performed By: #### L 100.0100, L500.2500 ####[facility] [address] [place], [address] [place],Total Normal 8.5-10.1 [facility] Comment on above: Result Comment: Canc elled via OM: Order cancelled - Patient discharged Performed By: #### L 100.0100, L500.2500 ####[facility] [address] [place], [address] CL Normal 98-107 [facility] Comment on above: Result Comment: Canc elled via OM: Order cancelled - Patient discharged Performed By: #### L 100.0100, L500.2500 ####[facility] [address] [place], [address] CO2 Normal 21.0-32.0 [facility] Comment on above: Result Comment: Canc elled via OM: Order cancelled - Patient discharged Performed By: #### L 100.0100, L500.2500 ####[facility] [address] [place], [address] CREAT,SERUM Normal 0.70-1.30 [facility] Comment on above: Result Comment: Canc elled via OM: Order cancelled - Patient discharged Performed By: #### L 100.0100, L500.2500 ####[facility] [address] [place], [address] EST GFR Normal >60 [facility] Comment on above: Result Comment: Canc elled via OM: Order cancelled - Patient discharged Performed By: #### L 100.0100, L500.2500 ####[facility] [address] [place], [address] EST GFR - AA Normal >60 [facility] Comment on above: Result Comment: Canc elled via OM: Order cancelled - Patient discharged Performed By: #### L 100.0100, L500.2500 ####[facility] [address] [place], [address] GAP Normal 5-15 [facility] Comment on above: Result Comment: Canc elled via OM: Order cancelled - Patient discharged Performed By: #### L 100.0100, L500.2500 ####[facility] [address] [place], [address] GLU Normal 74-106 [facility] Comment on above: Result Comment: Canc elled via OM: Order cancelled - Patient discharged Performed By: #### L 100.0100, L500.2500 ####[facility] [address] [place], [address] Potassium Normal 3.5-5.1 [facility] Comment on above: Result Comment: Canc elled via OM: Order cancelled - Patient discharged Performed By: #### L 100.0100, L500.2500 ####[facility] [address] [place], [address] Basic Metabolic Profile (BMP) Normal 136-145 [facility] Comment on above: Result Comment: Canc elled via OM: Order cancelled - Patient discharged Performed By: #### L 100.0100, L500.2500 ####[facility] [address] [place], [address] CBC W/Diff, Automatedon 10-2 Absolute Neut Normal 2.0-7.7 [facility] Comment on above: Result Comment: Canc elled via OM: Order cancelled - Patient discharged Performed By: #### L 100.0100, L500.2500 ####[facility] [address] [place], [address] HCT Normal 40-54 [facility] Comment on above: Result Comment: Canc elled via OM: Order cancelled - Patient discharged Performed By: #### L 100.0100, L500.2500 ####[facility] [address] [place], [address] HGB Normal 13.0-16.5 [facility] Comment on above: Result Comment: Canc elled via OM: Order cancelled - Patient discharged Performed By: #### L 100.0100, L500.2500 ####[facility] [address] [place], [address] MCH Normal 27.0-32.0 [facility] Comment on above: Result Comment: Canc elled via OM: Order cancelled - Patient discharged Performed By: #### L 100.0100, L500.2500 ####[facility] [address] [place], [address] MCHC Normal 32-36 [facility] Comment on above: Result Comment: Canc elled via OM: Order cancelled - Patient discharged Performed By: #### L 100.0100, L500.2500 ####[facility] [address] [place], [address] MCV Normal 80-94 [facility] Comment on above: Result Comment: Canc elled via OM: Order cancelled - Patient discharged Performed By: #### L 100.0100, L500.2500 ####[facility] [address] [place], [address] NEUT% Normal 47-70 [facility] Comment on above: Result Comment: Canc elled via OM: Order cancelled - Patient discharged Performed By: #### L 100.0100, L500.2500 ####[facility] [address] [place], [address] PLT Normal 150-450 [facility] Comment on above: Result Comment: Canc elled via OM: Order cancelled - Patient discharged Performed By: #### L 100.0100, L500.2500 ####[facility] [address] [place], [address] RBC Normal 4.6-6.2 [facility] Comment on above: Result Comment: Canc elled via OM: Order cancelled - Patient discharged Performed By: #### L 100.0100, L500.2500 ####[facility] [address] [place], [address] RDW CV Normal 11.6-14.6 [facility] Comment on above: Result Comment: Canc elled via OM: Order cancelled - Patient discharged Performed By: #### L 100.0100, L500.2500 ####[facility] [address] [place], [address] RDW SD Normal 35.1-43.9 [facility] Comment on above: Result Comment: Canc elled via OM: Order cancelled - Patient discharged Performed By: #### L 100.0100, L500.2500 ####[facility] [address] [place], [address] WBC Normal 4.4-11.0 [facility] Comment on above: Result Comment: Canc elled via OM: Order cancelled - Patient discharged Performed By: #### L 100.0100, L500.2500 ####[facility] [address] [place], [address] Basic Metabolic Profile (BMP )on 04-13-2024 BUN Normal - [facility] Comment on above: Result Comment: Canc elled via OM: Order cancelled - Patient discharged Performed By: #### L 100.0100, L500.2500 ####[facility] [address] [place], [address] BUN/CRE Normal - [facility] Comment on above: Result Comment: Canc elled via OM: Order cancelled - Patient discharged Performed By: #### L 100.0100, L500.2500 ####[facility] [address] [place], [address] CA,Total Normal 8.5-10.1 [facility] Comment on above: Result Comment: Canc elled via OM: Order cancelled - Patient discharged Performed By: #### L 100.0100, L500.2500 ####[facility] [address] [place], [address] CL Normal 98-107 [facility] Comment on above: Result Comment: Canc elled via OM: Order cancelled - Patient discharged Performed By: #### L 100.0100, L500.2500 ####[facility] [address] [place], [address] CO2 Normal 21.0-32.0 [facility] Comment on above: Result Comment: Canc elled via OM: Order cancelled - Patient discharged Performed By: #### L 100.0100, L500.2500 ####[facility] [address] [place], [address] CREAT,SERUM Normal 0.70-1.30 [facility] Comment on above: Result Comment: Canc elled via OM: Order cancelled - Patient discharged Performed By: #### L 100.0100, L500.2500 ####[facility] [address] [place], [address] EST GFR Normal >60 [facility] Comment on above: Result Comment: Canc elled via OM: Order cancelled - Patient discharged Performed By: #### L 100.0100, L500.2500 ####[facility] [address] [place], [address] EST GFR - AA Normal >60 [facility] Comment on above: Result Comment: Canc elled via OM: Order cancelled - Patient discharged Performed By: #### L 100.0100, L500.2500 ####[facility] [address] [place], [address] GAP Normal 5-15 [facility] Comment on above: Result Comment: Canc elled via OM: Order cancelled - Patient discharged Performed By: #### L 100.0100, L500.2500 ####[facility] [address] [place], [address] GLU Normal 74-106 [facility] Comment on above: Result Comment: Canc elled via OM: Order cancelled - Patient discharged Performed By: #### L 100.0100, L500.2500 ####[facility] [address] [place], [address] Potassium Normal 3.5-5.1 [facility] Comment on above: Result Comment: Canc elled via OM: Order cancelled - Patient discharged Performed By: #### L 100.0100, L500.2500 ####[facility] [address] [place], [address] Basic Metabolic Profile (BMP) Normal 136-145 [facility] Comment on above: Result Comment: Canc elled via OM: Order cancelled - Patient discharged Performed By: #### L 100.0100, L500.2500 ####[facility] [address] [place], [address] CBC W/Diff, Automatedon 10-2 Absolute Neut Normal 2.0-7.7 [facility] Comment on above: Result Comment: Canc elled via OM: Order cancelled - Patient discharged Performed By: #### L 100.0100, L500.2500 ####[facility] [address] [place], [address] HCT Normal 40-54 [facility] Comment on above: Result Comment: Canc elled via OM: Order cancelled - Patient discharged Performed By: #### L 100.0100, L500.2500 ####[facility] [address] [place], [address] HGB Normal 13.0-16.5 [facility] Comment on above: Result Comment: Canc elled via OM: Order cancelled - Patient discharged Performed By: #### L 100.0100, L500.2500 ####[facility] [address] [place], [address] MCH Normal 27.0-32.0 [facility] Comment on above: Result Comment: Canc elled via OM: Order cancelled - Patient discharged Performed By: #### L 100.0100, L500.2500 ####[facility] [address] [place], [address] MCHC Normal 32-36 [facility] Comment on above: Result Comment: Canc elled via OM: Order cancelled - Patient discharged Performed By: #### L 100.0100, L500.2500 ####[facility] [address] [place], [address] MCV Normal 80-94 [facility] Comment on above: Result Comment: Canc elled via OM: Order cancelled - Patient discharged Performed By: #### L 100.0100, L500.2500 ####[facility] [address] [place], [address] NEUT% Normal 47-70 [facility] Comment on above: Result Comment: Canc elled via OM: Order cancelled - Patient discharged Performed By: #### L 100.0100, L500.2500 ####[facility] [address] [place], [address] PLT Normal 150-450 [facility] Comment on above: Result Comment: Canc elled via OM: Order cancelled - Patient discharged Performed By: #### L 100.0100, L500.2500 ####[facility] [address] [place], [address] RBC Normal 4.6-6.2 [facility] Comment on above: Result Comment: Canc elled via OM: Order cancelled - Patient discharged Performed By: #### L 100.0100, L500.2500 ####[facility] [address] [place], [address] RDW CV Normal 11.6-14.6 [facility] Comment on above: Result Comment: Canc elled via OM: Order cancelled - Patient discharged Performed By: #### L 100.0100, L500.2500 ####[facility] [address] [place], [address] RDW SD Normal 35.1-43.9 [facility] Comment on above: Result Comment: Canc elled via OM: Order cancelled - Patient discharged Performed By: #### L 100.0100, L500.2500 ####[facility] [address] [place], [address] WBC Normal 4.4-11.0 [facility] Comment on above: Result Comment: Canc elled via OM: Order cancelled - Patient discharged Performed By: #### L 100.0100, L500.2500 ####[facility] [address] [place], [address] Basic Metabolic Profile (BMP )on 04-12-2023 BUN/CRE 21.1 RATIO High - [facility] Comment on above: Order Comment: 306-2 Performed By: #### L 100.0500, L500.2500 ####[facility] [address] [place], [address] CA,Total 10.1 mg/dL Normal 8.5-10.1 [facility] Comment on above: Order Comment: 306-2 Performed By: #### L 100.0500, L500.2500 ####[facility] [address] [place], [address] Chloride [Moles/Vol] 106 mmol/L Normal 98-107 [facility] Comment on above: Order Comment: 306-2 Performed By: #### L 100.0500, L500.2500 ####[facility] [address] [place], [address] CO2 [Moles/Vol] 27.0 mmol/L Normal 21.0-32.0 [facility] Comment on above: Order Comment: 306-2 Performed By: #### L 100.0500, L500.2500 ####[facility] [address] [place], [address] Creatinine [Mass/Vol] 1.28 mg/dL Normal 0.70-1.30 [facility] Comment on above: Order Comment: 306-2 Result Comment: The validity of the calculated GFR GFRAA in patients over70 years has not been determined. Clinical correlation isessential. Performed By: #### L 100.0500, L500.2500 ####[facility] [address] [place], [address] EST GFR - AA 71 mL/min Normal >60 [facility] Comment on above: Order Comment: 306-2 Result Comment: Afri can Indian GFR Calc Performed By: #### L 100.0500, L500.2500 ####[facility] [address] [place], [address] GAP 7 Normal 5-15 [facility] Comment on above: Order Comment: 306-2 Performed By: #### L 100.0500, L500.2500 ####[facility] [address] [place], [address] GFR/1.73 sq M.predicted among non-blacks MDRD (S/P/Bld) [Vol rate/Area] 58 mL/min/{1.73_m2} Low >60 [facility] Comment on above: Order Comment: 306-2 Result Comment: Non- GFR Calc Performed By: #### L 100.0500, L500.2500 ####[facility] [address] [place], [address] Glucose [Mass/Vol] 94 mg/dL Normal 74-106 [facility] Comment on above: Order Comment: 306-2 Performed By: #### L 100.0500, L500.2500 ####[facility] [address] [place], [address] Potassium [Moles/Vol] 3.6 mmol/L Normal 3.5-5.1 [facility] Comment on above: Order Comment: 306-2 Performed By: #### L 100.0500, L500.2500 ####[facility] [address] [place], [address] Sodium [Moles/Vol] 140 mmol/L Normal 136-145 [facility] Comment on above: Order Comment: 306-2 Performed By: #### L 100.0500, L500.2500 ####[facility] [address] [place], [address] Urea nitrogen [Mass/Vol] 27 mg/dL High -18 [facility] Comment on above: Order Comment: 306-2 Performed By: #### L 100.0500, L500.2500 ####[facility] [address] [place], [address] BUN Normal -18 [facility] Comment on above: Result Comment: Canc elled via OM: Order cancelled - Patient discharged Performed By: #### L 500.2500, L100.0100 ####[facility] [address] [place], [address] BUN/CRE Normal 10-20 [facility] Comment on above: Result Comment: Canc elled via OM: Order cancelled - Patient discharged Performed By: #### L 500.2500, L100.0100 ####[facility] [address] [place], [address] CA,Total Normal 8.5-10.1 [facility] Comment on above: Result Comment: Canc elled via OM: Order cancelled - Patient discharged Performed By: #### L 500.2500, L100.0100 ####[facility] [address] [place], [address] CL Normal 98-107 [facility] Comment on above: Result Comment: Canc elled via OM: Order cancelled - Patient discharged Performed By: #### L 500.2500, L100.0100 ####[facility] [address] [place], [address] CO2 Normal 21.0-32.0 [facility] Comment on above: Result Comment: Canc elled via OM: Order cancelled - Patient discharged Performed By: #### L 500.2500, L100.0100 ####[facility] [address] [place], [address] CREAT,SERUM Normal 0.70-1.30 [facility] Comment on above: Result Comment: Canc elled via OM: Order cancelled - Patient discharged Performed By: #### L 500.2500, L100.0100 ####[facility] [address] [place], [address] EST GFR Normal >60 [facility] Comment on above: Result Comment: Canc elled via OM: Order cancelled - Patient discharged Performed By: #### L 500.2500, L100.0100 ####[facility] [address] [place], [address] EST GFR - AA Normal >60 [facility] Comment on above: Result Comment: Canc elled via OM: Order cancelled - Patient discharged Performed By: #### L 500.2500, L100.0100 ####[facility] [address] [place], [address] GAP Normal 5-15 [facility] Comment on above: Result Comment: Canc elled via OM: Order cancelled - Patient discharged Performed By: #### L 500.2500, L100.0100 ####[facility] [address] [place], [address] GLU Normal 74-106 [facility] Comment on above: Result Comment: Canc elled via OM: Order cancelled - Patient discharged Performed By: #### L 500.2500, L100.0100 ####[facility] [address] [place], [address] Potassium Normal 3.5-5.1 [facility] Comment on above: Result Comment: Canc elled via OM: Order cancelled - Patient discharged Performed By: #### L 500.2500, L100.0100 ####[facility] [address] [place], [address] Basic Metabolic Profile (BMP) Normal 136-145 [facility] Comment on above: Result Comment: Canc elled via OM: Order cancelled - Patient discharged Performed By: #### L 500.2500, L100.0100 ####[facility] [address] [place], [address] CBC W/Diff, Automatedon 10-2 -2023 Absolute Neut Normal 2.0-7.7 [facility] Comment on above: Result Comment: Canc elled via OM: Order cancelled - Patient discharged Performed By: #### L 500.2500, L100.0100 ####[facility] [address] [place], [address] HCT Normal 40-54 [facility] Comment on above: Result Comment: Canc elled via OM: Order cancelled - Patient discharged Performed By: #### L 500.2500, L100.0100 ####[facility] [address] [place], [address] HGB Normal 13.0-16.5 [facility] Comment on above: Result Comment: Canc elled via OM: Order cancelled - Patient discharged Performed By: #### L 500.2500, L100.0100 ####[facility] [address] [place], [address] MCH Normal 27.0-32.0 [facility] Comment on above: Result Comment: Canc elled via OM: Order cancelled - Patient discharged Performed By: #### L 500.2500, L100.0100 ####[facility] [address] [place], [address] MCHC Normal 32-36 [facility] Comment on above: Result Comment: Canc elled via OM: Order cancelled - Patient discharged Performed By: #### L 500.2500, L100.0100 ####[facility] [address] [place], [address] MCV Normal 80-94 [facility] Comment on above: Result Comment: Canc elled via OM: Order cancelled - Patient discharged Performed By: #### L 500.2500, L100.0100 ####[facility] [address] [place], [address] NEUT% Normal 47-70 [facility] Comment on above: Result Comment: Canc elled via OM: Order cancelled - Patient discharged Performed By: #### L 500.2500, L100.0100 ####[facility] [address] [place], [address] PLT Normal 150-450 [facility] Comment on above: Result Comment: Canc elled via OM: Order cancelled - Patient discharged Performed By: #### L 500.2500, L100.0100 ####[facility] [address] [place], [address] RBC Normal 4.6-6.2 [facility] Comment on above: Result Comment: Canc elled via OM: Order cancelled - Patient discharged Performed By: #### L 500.2500, L100.0100 ####[facility] [address] [place], [address] RDW CV Normal 11.6-14.6 [facility] Comment on above: Result Comment: Canc elled via OM: Order cancelled - Patient discharged Performed By: #### L 500.2500, L100.0100 ####[facility] [address] [place], [address] RDW SD Normal 35.1-43.9 [facility] Comment on above: Result Comment: Canc elled via OM: Order cancelled - Patient discharged Performed By: #### L 500.2500, L100.0100 ####[facility] [address] [place], [address] WBC Normal 4.4-11.0 [facility] Comment on above: Result Comment: Canc elled via OM: Order cancelled - Patient discharged Performed By: #### L 500.2500, L100.0100 ####[facility] [address] [place], [address] CBC-Complete Blood Cnt No Di ffon 04-12-2024 Erythrocyte distribution width (RBC) [Ratio] 13.3 % Normal 11.6-14.6 [facility] Comment on above: Order Comment: 306-2 Performed By: #### L 100.0500, L500.2500 ####[facility] [address] [place], [address] Hematocrit (Bld) [Volume fraction] 49.2 % Normal 40-54 [facility] Comment on above: Order Comment: 306-2 Performed By: #### L 100.0500, L500.2500 ####[facility] [address] [place], [address] Hemoglobin (Bld) [Mass/Vol] 16.4 g/dL Normal 13.0-16.5 [facility] Comment on above: Order Comment: 306-2 Performed By: #### L 100.0500, L500.2500 ####[facility] [address] [place], [address] MCH (RBC) [Entitic mass] 33.4 pg High 27.0-32.0 [facility] Comment on above: Order Comment: 306-2 Performed By: #### L 100.0500, L500.2500 ####[facility] [address] [place], [address] MCHC (RBC) [Mass/Vol] 33.3 g/dL Normal 32-36 [facility] Comment on above: Order Comment: 306-2 Performed By: #### L 100.0500, L500.2500 ####[facility] [address] [place], [address] MCV (RBC) [Entitic vol] 100.2 fL High 80-94 [facility] Comment on above: Order Comment: 306-2 Performed By: #### L 100.0500, L500.2500 ####[facility] [address] [place], [address] Platelet mean volume (Bld) [Entitic vol] 10.1 fL Normal 6.2-12.0 [facility] Comment on above: Order Comment: 306-2 Performed By: #### L 100.0500, L500.2500 ####[facility] [address] [place], [address] Platelets (Bld) [#/Vol] 305 10*3/uL Normal 150-450 [facility] Comment on above: Order Comment: 306-2 Performed By: #### L 100.0500, L500.2500 ####[facility] [address] [place], [address] RBC (Bld) [#/Vol] 4.91 10*6/uL Normal 4.6-6.2 [facility] Comment on above: Order Comment: 306-2 Performed By: #### L 100.0500, L500.2500 ####[facility] [address] [place], [address] RDW SD 49.8 fl High 35.1-43.9 [facility] Comment on above: Order Comment: 306-2 Performed By: #### L 100.0500, L500.2500 ####[facility] [address] [place], [address] WBC (Bld) [#/Vol] 7.4 10*3/uL Normal 4.4-11.0 [facility] Comment on above: Order Comment: 306-2 Performed By: #### L 100.0500, L500.2500 ####[facility] [address] [place], [address] Basic Metabolic Profile (BMP )on 04-11-2024 BUN Normal -18 [facility] Comment on above: Result Comment: Canc elled via OM: Order cancelled - Patient discharged Performed By: #### L 500.2500, L100.0100 ####[facility] [address] [place], [address] BUN/CRE Normal 10-20 [facility] Comment on above: Result Comment: Canc elled via OM: Order cancelled - Patient discharged Performed By: #### L 500.2500, L100.0100 ####[facility] [address] [place], [address] CA,Total Normal 8.5-10.1 [facility] Comment on above: Result Comment: Canc elled via OM: Order cancelled - Patient discharged Performed By: #### L 500.2500, L100.0100 ####[facility] [address] [place], [address] CL Normal 98-107 [facility] Comment on above: Result Comment: Canc elled via OM: Order cancelled - Patient discharged Performed By: #### L 500.2500, L100.0100 ####[facility] [address] [place], [address] CO2 Normal 21.0-32.0 [facility] Comment on above: Result Comment: Canc elled via OM: Order cancelled - Patient discharged Performed By: #### L 500.2500, L100.0100 ####[facility] [address] [place], [address] CREAT,SERUM Normal 0.70-1.30 [facility] Comment on above: Result Comment: Canc elled via OM: Order cancelled - Patient discharged Performed By: #### L 500.2500, L100.0100 ####[facility] [address] [place], [address] EST GFR Normal >60 [facility] Comment on above: Result Comment: Canc elled via OM: Order cancelled - Patient discharged Performed By: #### L 500.2500, L100.0100 ####[facility] [address] [place], [address] EST GFR - AA Normal >60 [facility] Comment on above: Result Comment: Canc elled via OM: Order cancelled - Patient discharged Performed By: #### L 500.2500, L100.0100 ####[facility] [address] [place], [address] GAP Normal 5-15 [facility] Comment on above: Result Comment: Canc elled via OM: Order cancelled - Patient discharged Performed By: #### L 500.2500, L100.0100 ####[facility] [address] [place], [address] GLU Normal 74-106 [facility] Comment on above: Result Comment: Canc elled via OM: Order cancelled - Patient discharged Performed By: #### L 500.2500, L100.0100 ####[facility] [address] [place], [address] Potassium Normal 3.5-5.1 [facility] Comment on above: Result Comment: Canc elled via OM: Order cancelled - Patient discharged Performed By: #### L 500.2500, L100.0100 ####[facility] [address] [place], [address] Basic Metabolic Profile (BMP) Normal 136-145 [facility] Comment on above: Result Comment: Canc elled via OM: Order cancelled - Patient discharged Performed By: #### L 500.2500, L100.0100 ####[facility] [address] [place], [address] CBC W/Diff, Automatedon 10-2 Absolute Neut Normal 2.0-7.7 [facility] Comment on above: Result Comment: Canc elled via OM: Order cancelled - Patient discharged Performed By: #### L 500.2500, L100.0100 ####[facility] [address] [place], [address] HCT Normal 40-54 [facility] Comment on above: Result Comment: Canc elled via OM: Order cancelled - Patient discharged Performed By: #### L 500.2500, L100.0100 ####[facility] [address] [place], [address] HGB Normal 13.0-16.5 [facility] Comment on above: Result Comment: Canc elled via OM: Order cancelled - Patient discharged Performed By: #### L 500.2500, L100.0100 ####[facility] [address] [place], [address] MCH Normal 27.0-32.0 [facility] Comment on above: Result Comment: Canc elled via OM: Order cancelled - Patient discharged Performed By: #### L 500.2500, L100.0100 ####[facility] [address] [place], [address] MCHC Normal 32-36 [facility] Comment on above: Result Comment: Canc elled via OM: Order cancelled - Patient discharged Performed By: #### L 500.2500, L100.0100 ####[facility] [address] [place], [address] MCV Normal 80-94 [facility] Comment on above: Result Comment: Canc elled via OM: Order cancelled - Patient discharged Performed By: #### L 500.2500, L100.0100 ####[facility] [address] [place], [address] NEUT% Normal 47-70 [facility] Comment on above: Result Comment: Canc elled via OM: Order cancelled - Patient discharged Performed By: #### L 500.2500, L100.0100 ####[facility] [address] [place], [address] PLT Normal 150-450 [facility] Comment on above: Result Comment: Canc elled via OM: Order cancelled - Patient discharged Performed By: #### L 500.2500, L100.0100 ####[facility] [address] [place], [address] RBC Normal 4.6-6.2 [facility] Comment on above: Result Comment: Canc elled via OM: Order cancelled - Patient discharged Performed By: #### L 500.2500, L100.0100 ####[facility] [address] [place], [address] RDW CV Normal 11.6-14.6 [facility] Comment on above: Result Comment: Canc elled via OM: Order cancelled - Patient discharged Performed By: #### L 500.2500, L100.0100 ####[facility] [address] [place], [address] RDW SD Normal 35.1-43.9 [facility] Comment on above: Result Comment: Canc elled via OM: Order cancelled - Patient discharged Performed By: #### L 500.2500, L100.0100 ####[facility] [address] [place], [address] WBC Normal 4.4-11.0 [facility] Comment on above: Result Comment: Canc elled via OM: Order cancelled - Patient discharged Performed By: #### L 500.2500, L100.0100 ####[facility] [address] [place], [address] Basic Metabolic Profile (BMP )on 04-10-2024 BUN/CRE 16.1 RATIO Normal 10-20 [facility] Comment on above: Performed By: #### L 500.2500, L100.0100 ####[facility] [address] [place], [address] CA,Total 9.4 mg/dL Normal 8.5-10.1 [facility] Comment on above: Performed By: #### L 500.2500, L100.0100 ####[facility] [address] [place], [address] Chloride [Moles/Vol] 106 mmol/L Normal 98-107 [facility] Comment on above: Performed By: #### L 500.2500, L100.0100 ####[facility] [address] [place], [address] CO2 [Moles/Vol] 25.0 mmol/L Normal 21.0-32.0 [facility] Comment on above: Performed By: #### L 500.2500, L100.0100 ####[facility] [address] [place], [address] Creatinine [Mass/Vol] 1.74 mg/dL High 0.70-1.30 [facility] Comment on above: Result Comment: The validity of the calculated GFR GFRAA in patients over70 years has not been determined. Clinical correlation isessential. Performed By: #### L 500.2500, L100.0100 ####[facility] [address] [place], [address] ECRCL 33.61 ml/min Normal [facility] Comment on above: Performed By: #### L 500.2500, L100.0100 ####[facility] [address] [place], [address] EST GFR - AA 50 mL/min Low >60 [facility] Comment on above: Result Comment: Afri can Indian GFR Calc Performed By: #### L 500.2500, L100.0100 ####[facility] [address] [place], [address] GAP 5 Normal 5-15 [facility] Comment on above: Performed By: #### L 500.2500, L100.0100 ####[facility] [address] [place], [address] GFR/1.73 sq M.predicted among non-blacks MDRD (S/P/Bld) [Vol rate/Area] 41 mL/min/{1.73_m2} Low >60 [facility] Comment on above: Result Comment: Non- GFR Calc Performed By: #### L 500.2500, L100.0100 ####[facility] [address] [place], [address] Glucose [Mass/Vol] 90 mg/dL Normal 74-106 [facility] Comment on above: Performed By: #### L 500.2500, L100.0100 ####[facility] [address] [place], [address] Potassium [Moles/Vol] 4.1 mmol/L Normal 3.5-5.1 [facility] Comment on above: Performed By: #### L 500.2500, L100.0100 ####[facility] [address] [place], [address] Sodium [Moles/Vol] 136 mmol/L Normal 136-145 [facility] Comment on above: Performed By: #### L 500.2500, L100.0100 ####[facility] [address] [place], [address] Urea nitrogen [Mass/Vol] 28 mg/dL High 7-18 [facility] Comment on above: Performed By: #### L 500.2500, L100.0100 ####[facility] [address] [place], [address] CBC W/Diff, Automatedon 10-2 -2023 Absolute Lymph 1.36 X10 3/uL Normal 0.83-4.51 [facility] Comment on above: Performed By: #### L 500.2500, L100.0100 ####[facility] [address] [place], [address] Absolute Neut 5.5 X10 3/uL Normal 2.0-7.7 [facility] Comment on above: Performed By: #### L 500.2500, L100.0100 ####[facility] [address] [place], [address] Basophils/100 WBC (Bld) 0.7 % Normal 0-1 [facility] Comment on above: Performed By: #### L 500.2500, L100.0100 ####[facility] [address] [place], [address] Eosinophils/100 WBC (Bld) 0.3 % Normal 0-5 [facility] Comment on above: Performed By: #### L 500.2500, L100.0100 ####[facility] [address] [place], [address] Erythrocyte distribution width (RBC) [Ratio] 13.4 % Normal 11.6-14.6 [facility] Comment on above: Performed By: #### L 500.2500, L100.0100 ####[facility] [address] [place], [address] Hematocrit (Bld) [Volume fraction] 45.6 % Normal 40-54 [facility] Comment on above: Performed By: #### L 500.2500, L100.0100 ####[facility] [address] [place], [address] Hemoglobin (Bld) [Mass/Vol] 15.4 g/dL Normal 13.0-16.5 [facility] Comment on above: Performed By: #### L 500.2500, L100.0100 ####[facility] [address] [place], [address] IG% 0.800 Normal 0.0-0.9 [facility] Comment on above: Result Comment: IG% - Immature Granulocytes (promyelocytes, myelocytes andmetamyelocytes) > 1% indicates that a LEFT SHIFT is Present. Performed By: #### L 500.2500, L100.0100 ####[facility] [address] [place], [address] Lymphocytes/100 WBC (Bld) 18.0 % Low 19-41 [facility] Comment on above: Performed By: #### L 500.2500, L100.0100 ####[facility] [address] [place], [address] MCH (RBC) [Entitic mass] 33.6 pg High 27.0-32.0 [facility] Comment on above: Performed By: #### L 500.2500, L100.0100 ####[facility] [address] [place], [address] MCHC (RBC) [Mass/Vol] 33.8 g/dL Normal 32-36 [facility] Comment on above: Performed By: #### L 500.2500, L100.0100 ####[facility] [address] [place], [address] MCV (RBC) [Entitic vol] 99.3 fL High 80-94 [facility] Comment on above: Performed By: #### L 500.2500, L100.0100 ####[facility] [address] [place], [address] Monocytes/100 WBC (Bld) 7.0 % Normal 0-10 [facility] Comment on above: Performed By: #### L 500.2500, L100.0100 ####[facility] [address] [place], [address] Neutrophils/100 WBC (Bld) 73.2 % High 47-70 [facility] Comment on above: Performed By: #### L 500.2500, L100.0100 ####[facility] [address] [place], [address] Nucleated RBC (Bld) [#/Vol] 0 10*3/uL Normal 0-5 [facility] Comment on above: Performed By: #### L 500.2500, L100.0100 ####[facility] [address] [place], [address] Platelet mean volume (Bld) [Entitic vol] 10.1 fL Normal 6.2-12.0 [facility] Comment on above: Performed By: #### L 500.2500, L100.0100 ####[facility] [address] [place], [address] Platelets (Bld) [#/Vol] 296 10*3/uL Normal 150-450 [facility] Comment on above: Performed By: #### L 500.2500, L100.0100 ####[facility] [address] [place], [address] RBC (Bld) [#/Vol] 4.59 10*6/uL Low 4.6-6.2 [facility] Comment on above: Performed By: #### L 500.2500, L100.0100 ####[facility] [address] [place], [address] RDW SD 48.8 fl High 35.1-43.9 [facility] Comment on above: Performed By: #### L 500.2500, L100.0100 ####[facility] [address] [place], [address] WBC (Bld) [#/Vol] 7.6 10*3/uL Normal 4.4-11.0 [facility] Comment on above: Performed By: #### L 500.2500, L100.0100 ####[facility] [address] [place], [address] Basic Metabolic Profile (BMP )on 04-09-2024 BUN/CRE 15.3 RATIO Normal -20 [facility] Comment on above: Performed By: #### L 500.2500, L100.0100 ####[facility] [address] [place], [address] CA,Total 9.8 mg/dL Normal 8.5-10.1 [facility] Comment on above: Performed By: #### L 500.2500, L100.0100 ####[facility] [address] [place], [address] Chloride [Moles/Vol] 107 mmol/L Normal 98-107 [facility] Comment on above: Performed By: #### L 500.2500, L100.0100 ####[facility] [address] [place], [address] CO2 [Moles/Vol] 26.0 mmol/L Normal 21.0-32.0 [facility] Comment on above: Performed By: #### L 500.2500, L100.0100 ####[facility] [address] [place], [address] Creatinine [Mass/Vol] 1.44 mg/dL High 0.70-1.30 [facility] Comment on above: Result Comment: The validity of the calculated GFR GFRAA in patients over70 years has not been determined. Clinical correlation isessential. Performed By: #### L 500.2500, L100.0100 ####[facility] [address] [place], [address] ECRCL 40.61 ml/min Normal [facility] Comment on above: Performed By: #### L 500.2500, L100.0100 ####[facility] [address] [place], [address] EST GFR - AA 62 mL/min Normal >60 [facility] Comment on above: Result Comment: Afri can Indian GFR Calc Performed By: #### L 500.2500, L100.0100 ####[facility] [address] [place], [address] GAP 4 Low 5-15 [facility] Comment on above: Performed By: #### L 500.2500, L100.0100 ####[facility] [address] [place], [address] GFR/1.73 sq M.predicted among non-blacks MDRD (S/P/Bld) [Vol rate/Area] 51 mL/min/{1.73_m2} Low >60 [facility] Comment on above: Result Comment: Non- GFR Calc Performed By: #### L 500.2500, L100.0100 ####[facility] [address] [place], [address] Glucose [Mass/Vol] 97 mg/dL Normal 74-106 [facility] Comment on above: Performed By: #### L 500.2500, L100.0100 ####[facility] [address] [place], [address] Potassium [Moles/Vol] 4.0 mmol/L Normal 3.5-5.1 [facility] Comment on above: Result Comment: Mode rate Hemolysis, Result may be falsely increased. Performed By: #### L 500.2500, L100.0100 ####[facility] [address] [place], [address] Sodium [Moles/Vol] 137 mmol/L Normal 136-145 [facility] Comment on above: Performed By: #### L 500.2500, L100.0100 ####[facility] [address] [place], [address] Urea nitrogen [Mass/Vol] 22 mg/dL High 7-18 [facility] Comment on above: Performed By: #### L 500.2500, L100.0100 ####[facility] [address] [place], [address] CBC W/Diff, Automatedon 10-2 Absolute Lymph 1.04 X10 3/uL Normal 0.83-4.51 [facility] Comment on above: Performed By: #### L 500.2500, L100.0100 ####[facility] [address] [place], [address] Absolute Neut 5.9 X10 3/uL Normal 2.0-7.7 [facility] Comment on above: Performed By: #### L 500.2500, L100.0100 ####[facility] [address] [place], [address] Basophils/100 WBC (Bld) 0.7 % Normal 0-1 [facility] Comment on above: Performed By: #### L 500.2500, L100.0100 ####[facility] [address] [place], [address] Eosinophils/100 WBC (Bld) 0.9 % Normal 0-5 [facility] Comment on above: Performed By: #### L 500.2500, L100.0100 ####[facility] [address] [place], [address] Erythrocyte distribution width (RBC) [Ratio] 13.2 % Normal 11.6-14.6 [facility] Comment on above: Performed By: #### L 500.2500, L100.0100 ####[facility] [address] [place], [address] Hematocrit (Bld) [Volume fraction] 45.7 % Normal 40-54 [facility] Comment on above: Performed By: #### L 500.2500, L100.0100 ####[facility] [address] [place], [address] Hemoglobin (Bld) [Mass/Vol] 15.0 g/dL Normal 13.0-16.5 [facility] Comment on above: Performed By: #### L 500.2500, L100.0100 ####[facility] [address] [place], [address] IG% 0.500 Normal 0.0-0.9 [facility] Comment on above: Result Comment: IG% - Immature Granulocytes (promyelocytes, myelocytes andmetamyelocytes) > 1% indicates that a LEFT SHIFT is Present. Performed By: #### L 500.2500, L100.0100 ####[facility] [address] [place], [address] Lymphocytes/100 WBC (Bld) 13.6 % Low 19-41 [facility] Comment on above: Performed By: #### L 500.2500, L100.0100 ####[facility] [address] [place], [address] MCH (RBC) [Entitic mass] 32.5 pg High 27.0-32.0 [facility] Comment on above: Performed By: #### L 500.2500, L100.0100 ####[facility] [address] [place], [address] MCHC (RBC) [Mass/Vol] 32.8 g/dL Normal 32-36 [facility] Comment on above: Performed By: #### L 500.2500, L100.0100 ####[facility] [address] [place], [address] MCV (RBC) [Entitic vol] 98.9 fL High 80-94 [facility] Comment on above: Performed By: #### L 500.2500, L100.0100 ####[facility] [address] [place], [address] Monocytes/100 WBC (Bld) 7.2 % Normal 0-10 [facility] Comment on above: Performed By: #### L 500.2500, L100.0100 ####[facility] [address] [place], [address] Neutrophils/100 WBC (Bld) 77.1 % High 47-70 [facility] Comment on above: Performed By: #### L 500.2500, L100.0100 ####[facility] [address] [place], [address] Nucleated RBC (Bld) [#/Vol] 0 10*3/uL Normal 0-5 [facility] Comment on above: Performed By: #### L 500.2500, L100.0100 ####[facility] [address] [place], [address] Platelet mean volume (Bld) [Entitic vol] 10.0 fL Normal 6.2-12.0 [facility] Comment on above: Performed By: #### L 500.2500, L100.0100 ####[facility] [address] [place], [address] Platelets (Bld) [#/Vol] 309 10*3/uL Normal 150-450 [facility] Comment on above: Performed By: #### L 500.2500, L100.0100 ####[facility] [address] [place], [address] RBC (Bld) [#/Vol] 4.62 10*6/uL Normal 4.6-6.2 [facility] Comment on above: Performed By: #### L 500.2500, L100.0100 ####[facility] [address] [place], [address] RDW SD 48.0 fl High 35.1-43.9 [facility] Comment on above: Performed By: #### L 500.2500, L100.0100 ####[facility] [address] [place], [address] WBC (Bld) [#/Vol] 7.7 10*3/uL Normal 4.4-11.0 [facility] Comment on above: Performed By: #### L 500.2500, L100.0100 ####[facility] [address] [place], [address] Basic Metabolic Profile (BMP )on 04-08-2024 BUN/CRE 10.4 RATIO Normal 10-20 [facility] Comment on above: Performed By: #### L 500.2500, L100.0100 ####[facility] [address] [place], [address] CA,Total 9.6 mg/dL Normal 8.5-10.1 [facility] Comment on above: Performed By: #### L 500.2500, L100.0100 ####[facility] [address] [place], [address] Chloride [Moles/Vol] 108 mmol/L High 98-107 [facility] Comment on above: Performed By: #### L 500.2500, L100.0100 ####[facility] [address] [place], [address] CO2 [Moles/Vol] 24.0 mmol/L Normal 21.0-32.0 [facility] Comment on above: Performed By: #### L 500.2500, L100.0100 ####[facility] [address] [place], [address] Creatinine [Mass/Vol] 1.15 mg/dL Normal 0.70-1.30 [facility] Comment on above: Result Comment: The validity of the calculated GFR GFRAA in patients over70 years has not been determined. Clinical correlation isessential. Performed By: #### L 500.2500, L100.0100 ####[facility] [address] [place], [address] ECRCL 50.86 ml/min Normal [facility] Comment on above: Performed By: #### L 500.2500, L100.0100 ####[facility] [address] [place], [address] EST GFR - AA 80 mL/min Normal >60 [facility] Comment on above: Result Comment: Afri can Indian GFR Calc Performed By: #### L 500.2500, L100.0100 ####[facility] [address] [place], [address] GAP 9 Normal 5-15 [facility] Comment on above: Performed By: #### L 500.2500, L100.0100 ####[facility] [address] [place], [address] GFR/1.73 sq M.predicted among non-blacks MDRD (S/P/Bld) [Vol rate/Area] 66 mL/min/{1.73_m2} Normal >60 [facility] Comment on above: Result Comment: Non- GFR Calc Performed By: #### L 500.2500, L100.0100 ####[facility] [address] [place], [address] Glucose [Mass/Vol] 92 mg/dL Normal 74-106 [facility] Comment on above: Performed By: #### L 500.2500, L100.0100 ####[facility] [address] [place], [address] Potassium [Moles/Vol] 3.9 mmol/L Normal 3.5-5.1 [facility] Comment on above: Result Comment: Slig ht Hemolysis, Result may be falsely increased. Performed By: #### L 500.2500, L100.0100 ####[facility] [address] [place], [address] Sodium [Moles/Vol] 142 mmol/L Normal 136-145 [facility] Comment on above: Performed By: #### L 500.2500, L100.0100 ####[facility] [address] [place], [address] Urea nitrogen [Mass/Vol] 12 mg/dL Normal 7-18 [facility] Comment on above: Performed By: #### L 500.2500, L100.0100 ####[facility] [address] [place], [address] CBC W/Diff, Automatedon 10-2 Absolute Lymph 1.20 X10 3/uL Normal 0.83-4.51 [facility] Comment on above: Performed By: #### L 500.2500, L100.0100 ####[facility] [address] [place], [address] Absolute Neut 4.1 X10 3/uL Normal 2.0-7.7 [facility] Comment on above: Performed By: #### L 500.2500, L100.0100 ####[facility] [address] [place], [address] Basophils/100 WBC (Bld) 1.3 % High 0-1 [facility] Comment on above: Performed By: #### L 500.2500, L100.0100 ####[facility] [address] [place], [address] Eosinophils/100 WBC (Bld) 2.0 % Normal 0-5 [facility] Comment on above: Performed By: #### L 500.2500, L100.0100 ####[facility] [address] [place], [address] Erythrocyte distribution width (RBC) [Ratio] 13.0 % Normal 11.6-14.6 [facility] Comment on above: Performed By: #### L 500.2500, L100.0100 ####[facility] [address] [place], [address] Hematocrit (Bld) [Volume fraction] 44.0 % Normal 40-54 [facility] Comment on above: Performed By: #### L 500.2500, L100.0100 ####[facility] [address] [place], [address] Hemoglobin (Bld) [Mass/Vol] 14.6 g/dL Normal 13.0-16.5 [facility] Comment on above: Performed By: #### L 500.2500, L100.0100 ####[facility] [address] [place], [address] IG% 0.300 Normal 0.0-0.9 [facility] Comment on above: Result Comment: IG% - Immature Granulocytes (promyelocytes, myelocytes andmetamyelocytes) > 1% indicates that a LEFT SHIFT is Present. Performed By: #### L 500.2500, L100.0100 ####[facility] [address] [place], [address] Lymphocytes/100 WBC (Bld) 20.0 % Normal 19-41 [facility] Comment on above: Performed By: #### L 500.2500, L100.0100 ####[facility] [address] [place], [address] MCH (RBC) [Entitic mass] 32.7 pg High 27.0-32.0 [facility] Comment on above: Performed By: #### L 500.2500, L100.0100 ####[facility] [address] [place], [address] MCHC (RBC) [Mass/Vol] 33.2 g/dL Normal 32-36 [facility] Comment on above: Performed By: #### L 500.2500, L100.0100 ####[facility] [address] [place], [address] MCV (RBC) [Entitic vol] 98.4 fL High 80-94 [facility] Comment on above: Performed By: #### L 500.2500, L100.0100 ####[facility] [address] [place], [address] Monocytes/100 WBC (Bld) 8.7 % Normal 0-10 [facility] Comment on above: Performed By: #### L 500.2500, L100.0100 ####[facility] [address] [place], [address] Neutrophils/100 WBC (Bld) 67.7 % Normal 47-70 [facility] Comment on above: Performed By: #### L 500.2500, L100.0100 ####[facility] [address] [place], [address] Nucleated RBC (Bld) [#/Vol] 0 10*3/uL Normal 0-5 [facility] Comment on above: Performed By: #### L 500.2500, L100.0100 ####[facility] [address] [place], [address] Platelet mean volume (Bld) [Entitic vol] 9.9 fL Normal 6.2-12.0 [facility] Comment on above: Performed By: #### L 500.2500, L100.0100 ####[facility] [address] [place], [address] Platelets (Bld) [#/Vol] 270 10*3/uL Normal 150-450 [facility] Comment on above: Performed By: #### L 500.2500, L100.0100 ####[facility] [address] [place], [address] RBC (Bld) [#/Vol] 4.47 10*6/uL Low 4.6-6.2 [facility] Comment on above: Performed By: #### L 500.2500, L100.0100 ####[facility] [address] [place], [address] RDW SD 47.0 fl High 35.1-43.9 [facility] Comment on above: Performed By: #### L 500.2500, L100.0100 ####[facility] [address] [place], [address] WBC (Bld) [#/Vol] 6.0 10*3/uL Normal 4.4-11.0 [facility] Comment on above: Performed By: #### L 500.2500, L100.0100 ####[facility] [address] [place], [address] Vitamin D,25 Hydroxyon 04-08 Vitamin D 25-OH 35.4 ng/mL Normal [facility] Comment on above: Result Comment: Teri min D 25(OH) Status Range Deficiency <20 ng/mL (50nmol/L) Insufficiency 20 - 30 ng/mL (50 - 75 nmol/L) Sufficiency 30 - 100 ng/mL (75 - 250 nmol/L) Toxicity >100 ng/mL (>250 nmol/L) Performed By: #### L 506.1000 ####[facility] [address] [place], [address] Basic Metabolic Profile (BMP )on 04-07-2024 BUN/CRE 16.2 RATIO Normal 04-07 [facility] Comment on above: Performed By: #### L 100.0100, L501.9520, L500.2500 ####[facility] [address] [place], [address] CA,Total 9.1 mg/dL Normal 8.5-10.1 [facility] Comment on above: Performed By: #### L 100.0100, L501.9520, L500.2500 ####[facility] [address] [place], [address] Chloride [Moles/Vol] 106 mmol/L Normal 98-107 [facility] Comment on above: Performed By: #### L 100.0100, L501.9520, L500.2500 ####[facility] [address] [place], [address] CO2 [Moles/Vol] 25.0 mmol/L Normal 21.0-32.0 [facility] Comment on above: Performed By: #### L 100.0100, L501.9520, L500.2500 ####[facility] [address] [place], [address] Creatinine [Mass/Vol] 1.05 mg/dL Normal 0.70-1.30 [facility] Comment on above: Result Comment: The validity of the calculated GFR GFRAA in patients over70 years has not been determined. Clinical correlation isessential. Performed By: #### L 100.0100, L501.9520, L500.2500 ####[facility] [address] [place], [address] ECRCL 55.70 ml/min Normal [facility] Comment on above: Performed By: #### L 100.0100, L501.9520, L500.2500 ####[facility] [address] [place], [address] EST GFR - AA 89 mL/min Normal >60 [facility] Comment on above: Result Comment: Afri can Indian GFR Calc Performed By: #### L 100.0100, L501.9520, L500.2500 ####[facility] [address] [place], [address] GAP 4 Low 5-15 [facility] Comment on above: Performed By: #### L 100.0100, L501.9520, L500.2500 ####[facility] [address] [place], [address] GFR/1.73 sq M.predicted among non-blacks MDRD (S/P/Bld) [Vol rate/Area] 73 mL/min/{1.73_m2} Normal >60 [facility] Comment on above: Result Comment: Non- GFR Calc Performed By: #### L 100.0100, L501.9520, L500.2500 ####[facility] [address] [place], [address] Glucose [Mass/Vol] 95 mg/dL Normal 74-106 [facility] Comment on above: Performed By: #### L 100.0100, L501.9520, L500.2500 ####[facility] [address] [place], [address] Potassium [Moles/Vol] 3.6 mmol/L Normal 3.5-5.1 [facility] Comment on above: Performed By: #### L 100.0100, L501.9520, L500.2500 ####[facility] [address] [place], [address] Sodium [Moles/Vol] 135 mmol/L Low 136-145 [facility] Comment on above: Performed By: #### L 100.0100, L501.9520, L500.2500 ####[facility] [address] [place], [address] Urea nitrogen [Mass/Vol] 17 mg/dL Normal 7-18 [facility] Comment on above: Performed By: #### L 100.0100, L501.9520, L500.2500 ####[facility] [address] [place], [address] CBC W/Diff, Automatedon 10-2 0-2024 Absolute Lymph 1.44 X10 3/uL Normal 0.83-4.51 [facility] Comment on above: Performed By: #### L 100.0100, L501.9520, L500.2500 ####[facility] [address] [place], [address] Absolute Neut 3.8 X10 3/uL Normal 2.0-7.7 [facility] Comment on above: Performed By: #### L 100.0100, L501.9520, L500.2500 ####[facility] [address] [place], [address] Basophils/100 WBC (Bld) 1.5 % High 0-1 [facility] Comment on above: Performed By: #### L 100.0100, L501.9520, L500.2500 ####[facility] [address] [place], [address] Eosinophils/100 WBC (Bld) 1.5 % Normal 0-5 [facility] Comment on above: Performed By: #### L 100.0100, L501.9520, L500.2500 ####[facility] [address] [place], [address] Erythrocyte distribution width (RBC) [Ratio] 12.8 % Normal 11.6-14.6 [facility] Comment on above: Performed By: #### L 100.0100, L501.9520, L500.2500 ####[facility] [address] [place], [address] Hematocrit (Bld) [Volume fraction] 42.4 % Normal 40-54 [facility] Comment on above: Performed By: #### L 100.0100, L501.9520, L500.2500 ####[facility] [address] [place], [address] Hemoglobin (Bld) [Mass/Vol] 14.2 g/dL Normal 13.0-16.5 [facility] Comment on above: Performed By: #### L 100.0100, L501.9520, L500.2500 ####[facility] [address] [place], [address] IG% 0.300 Normal 0.0-0.9 [facility] Comment on above: Result Comment: IG% - Immature Granulocytes (promyelocytes, myelocytes andmetamyelocytes) > 1% indicates that a LEFT SHIFT is Present. Performed By: #### L 100.0100, L501.9520, L500.2500 ####[facility] [address] [place], [address] Lymphocytes/100 WBC (Bld) 24.4 % Normal 19-41 [facility] Comment on above: Performed By: #### L 100.0100, L501.9520, L500.2500 ####[facility] [address] [place], [address] MCH (RBC) [Entitic mass] 32.8 pg High 27.0-32.0 [facility] Comment on above: Performed By: #### L 100.0100, L501.9520, L500.2500 ####[facility] [address] [place], [address] MCHC (RBC) [Mass/Vol] 33.5 g/dL Normal 32-36 [facility] Comment on above: Performed By: #### L 100.0100, L501.9520, L500.2500 ####[facility] [address] [place], [address] MCV (RBC) [Entitic vol] 97.9 fL High 80-94 [facility] Comment on above: Performed By: #### L 100.0100, L501.9520, L500.2500 ####[facility] [address] [place], [address] Monocytes/100 WBC (Bld) 7.8 % Normal 0-10 [facility] Comment on above: Performed By: #### L 100.0100, L501.9520, L500.2500 ####[facility] [address] [place], [address] Neutrophils/100 WBC (Bld) 64.5 % Normal 47-70 [facility] Comment on above: Performed By: #### L 100.0100, L501.9520, L500.2500 ####[facility] [address] [place], [address] Nucleated RBC (Bld) [#/Vol] 0 10*3/uL Normal 0-5 [facility] Comment on above: Performed By: #### L 100.0100, L501.9520, L500.2500 ####[facility] [address] [place], [address] Platelet mean volume (Bld) [Entitic vol] 9.8 fL Normal 6.2-12.0 [facility] Comment on above: Performed By: #### L 100.0100, L501.9520, L500.2500 ####[facility] [address] [place], [address] Platelets (Bld) [#/Vol] 292 10*3/uL Normal 150-450 [facility] Comment on above: Performed By: #### L 100.0100, L501.9520, L500.2500 ####[facility] [address] [place], [address] RBC (Bld) [#/Vol] 4.33 10*6/uL Low 4.6-6.2 [facility] Comment on above: Performed By: #### L 100.0100, L501.9520, L500.2500 ####[facility] [address] [place], [address] RDW SD 46.1 fl High 35.1-43.9 [facility] Comment on above: Performed By: #### L 100.0100, L501.9520, L500.2500 ####[facility] [address] [place], [address] WBC (Bld) [#/Vol] 5.9 10*3/uL Normal 4.4-11.0 [facility] Comment on above: Performed By: #### L 100.0100, L501.9520, L500.2500 ####[facility] [address] [place], [address] Thyroid Stim Hormone (TSH)on 04-07-2024 TSH 1.730 uIU/mL Normal 0.358-3.740 [facility] Comment on above: Performed By: #### L 100.0100, L501.9520, L500.2500 ####[facility] [address] [place], [address] 12 Lead EKGon 04-06-2024 12 Lead EKG Normal [facility] Basic Metabolic Profile (BMP )on 04-06-2024 BUN/CRE 16.2 RATIO Normal 04-07 [facility] Comment on above: Order Comment: 'TROP ' Serial specimen #1, #2 or #3: 1 Performed By: #### L 500.2500, L100.0100, L501.4020 ####[facility] [address] [place], [address] CA,Total 10.0 mg/dL Normal 8.5-10.1 [facility] Comment on above: Order Comment: 'TROP ' Serial specimen #1, #2 or #3: 1 Performed By: #### L 500.2500, L100.0100, L501.4020 ####[facility] [address] [place], [address] Chloride [Moles/Vol] 104 mmol/L Normal 98-107 [facility] Comment on above: Order Comment: 'TROP ' Serial specimen #1, #2 or #3: 1 Performed By: #### L 500.2500, L100.0100, L501.4020 ####[facility] [address] [place], [address] CO2 [Moles/Vol] 31.0 mmol/L Normal 21.0-32.0 [facility] Comment on above: Order Comment: 'TROP ' Serial specimen #1, #2 or #3: 1 Performed By: #### L 500.2500, L100.0100, L501.4020 ####[facility] [address] [place], [address] Creatinine [Mass/Vol] 1.36 mg/dL High 0.70-1.30 [facility] Comment on above: Order Comment: 'TROP ' Serial specimen #1, #2 or #3: 1 Result Comment: The validity of the calculated GFR GFRAA in patients over70 years has not been determined. Clinical correlation isessential. Performed By: #### L 500.2500, L100.0100, L501.4020 ####[facility] [address] [place], [address] ECRCL 42.94 ml/min Normal [facility] Comment on above: Order Comment: 'TROP ' Serial specimen #1, #2 or #3: 1 Performed By: #### L 500.2500, L100.0100, L501.4020 ####[facility] [address] [place], [address] EST GFR - AA 66 mL/min Normal >60 [facility] Comment on above: Order Comment: 'TROP ' Serial specimen #1, #2 or #3: 1 Result Comment: Afri can Indian GFR Calc Performed By: #### L 500.2500, L100.0100, L501.4020 ####[facility] [address] [place], [address] GAP 3 Low 5-15 [facility] Comment on above: Order Comment: 'TROP ' Serial specimen #1, #2 or #3: 1 Performed By: #### L 500.2500, L100.0100, L501.4020 ####[facility] [address] [place], [address] GFR/1.73 sq M.predicted among non-blacks MDRD (S/P/Bld) [Vol rate/Area] 54 mL/min/{1.73_m2} Low >60 [facility] Comment on above: Order Comment: 'TROP ' Serial specimen #1, #2 or #3: 1 Result Comment: Non- GFR Calc Performed By: #### L 500.2500, L100.0100, L501.4020 ####[facility] [address] [place], [address] Glucose [Mass/Vol] 99 mg/dL Normal 74-106 [facility] Comment on above: Order Comment: 'TROP ' Serial specimen #1, #2 or #3: 1 Performed By: #### L 500.2500, L100.0100, L501.4020 ####[facility] [address] [place], [address] Potassium [Moles/Vol] 4.1 mmol/L Normal 3.5-5.1 [facility] Comment on above: Order Comment: 'TROP ' Serial specimen #1, #2 or #3: 1 Performed By: #### L 500.2500, L100.0100, L501.4020 ####[facility] [address] [place], [address] Sodium [Moles/Vol] 138 mmol/L Normal 136-145 [facility] Comment on above: Order Comment: 'TROP ' Serial specimen #1, #2 or #3: 1 Performed By: #### L 500.2500, L100.0100, L501.4020 ####[facility] [address] [place], [address] Urea nitrogen [Mass/Vol] 22 mg/dL High 7-18 [facility] Comment on above: Order Comment: 'TROP ' Serial specimen #1, #2 or #3: 1 Performed By: #### L 500.2500, L100.0100, L501.4020 ####[facility] [address] [place], [address] Brain/Head without Contrasto n 04-06-2024 Brain/Head without Contrast Normal [facility] CBC W/Diff, Automatedon 03-19 Absolute Lymph 1.59 X10 3/uL Normal 0.83-4.51 [facility] Comment on above: Performed By: #### L 500.2500, L100.0100, L501.4020 ####[facility] [address] [place], [address] Absolute Neut 4.3 X10 3/uL Normal 2.0-7.7 [facility] Comment on above: Performed By: #### L 500.2500, L100.0100, L501.4020 ####[facility] [address] [place], [address] Basophils/100 WBC (Bld) 1.1 % High 0-1 [facility] Comment on above: Performed By: #### L 500.2500, L100.0100, L501.4020 ####[facility] [address] [place], [address] Eosinophils/100 WBC (Bld) 0.9 % Normal 0-5 [facility] Comment on above: Performed By: #### L 500.2500, L100.0100, L501.4020 ####[facility] [address] [place], [address] Erythrocyte distribution width (RBC) [Ratio] 13.0 % Normal 11.6-14.6 [facility] Comment on above: Performed By: #### L 500.2500, L100.0100, L501.4020 ####[facility] [address] [place], [address] Hematocrit (Bld) [Volume fraction] 49.3 % Normal 40-54 [facility] Comment on above: Performed By: #### L 500.2500, L100.0100, L501.4020 ####[facility] [address] [place], [address] Hemoglobin (Bld) [Mass/Vol] 17.0 g/dL High 13.0-16.5 [facility] Comment on above: Performed By: #### L 500.2500, L100.0100, L501.4020 ####[facility] [address] [place], [address] IG% 0.500 Normal 0.0-0.9 [facility] Comment on above: Result Comment: IG% - Immature Granulocytes (promyelocytes, myelocytes andmetamyelocytes) > 1% indicates that a LEFT SHIFT is Present. Performed By: #### L 500.2500, L100.0100, L501.4020 ####[facility] [address] [place], [address] Lymphocytes/100 WBC (Bld) 24.3 % Normal 19-41 [facility] Comment on above: Performed By: #### L 500.2500, L100.0100, L501.4020 ####[facility] [address] [place], [address] MCH (RBC) [Entitic mass] 33.5 pg High 27.0-32.0 [facility] Comment on above: Performed By: #### L 500.2500, L100.0100, L501.4020 ####[facility] [address] [place], [address] MCHC (RBC) [Mass/Vol] 34.5 g/dL Normal 32-36 [facility] Comment on above: Performed By: #### L 500.2500, L100.0100, L501.4020 ####[facility] [address] [place], [address] MCV (RBC) [Entitic vol] 97.0 fL High 80-94 [facility] Comment on above: Performed By: #### L 500.2500, L100.0100, L501.4020 ####[facility] [address] [place], [address] Monocytes/100 WBC (Bld) 6.9 % Normal 0-10 [facility] Comment on above: Performed By: #### L 500.2500, L100.0100, L501.4020 ####[facility] [address] [place], [address] Neutrophils/100 WBC (Bld) 66.3 % Normal 47-70 [facility] Comment on above: Performed By: #### L 500.2500, L100.0100, L501.4020 ####[facility] [address] [place], [address] Nucleated RBC (Bld) [#/Vol] 0 10*3/uL Normal 0-5 [facility] Comment on above: Performed By: #### L 500.2500, L100.0100, L501.4020 ####[facility] [address] [place], [address] Platelet mean volume (Bld) [Entitic vol] 10.2 fL Normal 6.2-12.0 [facility] Comment on above: Performed By: #### L 500.2500, L100.0100, L501.4020 ####[facility] [address] [place], [address] Platelets (Bld) [#/Vol] 329 10*3/uL Normal 150-450 [facility] Comment on above: Performed By: #### L 500.2500, L100.0100, L501.4020 ####[facility] [address] [place], [address] RBC (Bld) [#/Vol] 5.08 10*6/uL Normal 4.6-6.2 [facility] Comment on above: Performed By: #### L 500.2500, L100.0100, L501.4020 ####[facility] [address] [place], [address] RDW SD 46.7 fl High 35.1-43.9 [facility] Comment on above: Performed By: #### L 500.2500, L100.0100, L501.4020 ####[facility] [address] [place], [address] WBC (Bld) [#/Vol] 6.5 10*3/uL Normal 4.4-11.0 [facility] Comment on above: Performed By: #### L 500.2500, L100.0100, L501.4020 ####[facility] [address] [place], [address] Chest 1 View (Portable)on Chest 1 View (Portable) Normal [facility] Echo Completeon 04-06-2024 Echo Complete Normal [facility] Emergency Department Summary on 04-06-2024 Emergency Department Summary Normal [facility] H AND P Exam - Hospitaliston 04-06-2024 H&P Exam - Hospitalist Normal [place] L501.4020on 04-06-2024 TROPONIN-I HS 18 pg/mL Normal 3.0-78.0 [facility] Comment on above: Order Comment: 'TROP ' Serial specimen #1, #2 or #3: 2 Result Comment: Plea se Note: New Test Units and Gender Specific Reference Ranges. For more information see Policy Stat Procedure [place] High Sensitivity Troponin (TNIH) and attachments. Performed By: #### L 501.4020 ####[facility] [address] [place], [address] TROPONIN-I HS 9 pg/mL Normal 3.0-78.0 [facility] Comment on above: Order Comment: 'TROP ' Serial specimen #1, #2 or #3: 1 Result Comment: Brant gregorio Note: New Test Units and Gender Specific Reference Ranges. For more information see Policy Stat Procedure [place] High Sensitivity Troponin (TNIH) and attachments. Performed By: #### L 500.2500, L100.0100, L501.4020 ####[facility] [address] [place], [address] Lumbar Spine 2 or 3 Viewson 04-06-2024 Lumbar Spine 2 or 3 Views Normal [facility] Magnesiumon 04-06-2024 Magnesium [Mass/Vol] 2.3 mg/dL Normal 1.6-2.6 [facility] Comment on above: Performed By: #### L 501.5200 ####[facility] [address] [place], [address] Spine Cervical without Contr ason 04-06-2024 Spine Cervical without Contras Normal [facility] Thoracic Spine 2 Viewson Thoracic Spine 2 Views Normal [place] Urinalysis, Completeon 04-06 EPI,SQUAMOUS 5-10 SEEN Normal 0-5 [facility] Comment on above: Order Comment: CLEAN CATCH Performed By: #### L 400.0001 ####[facility] [address] [place], [address] BACTERIA 0 SEEN Normal None Seen [facility] Comment on above: Order Comment: CLEAN CATCH Performed By: #### L 400.0001 ####[facility] [address] [place], [address] Mucus Ql (Urine sed) 0 SEEN Normal [facility] Comment on above: Order Comment: CLEAN CATCH Performed By: #### L 400.0001 ####[facility] [address] [place], [address] RBC 0 SEEN Normal 0-5 [facility] Comment on above: Order Comment: CLEAN CATCH Performed By: #### L 400.0001 ####[facility] [address] [place], [address] WBC 0 SEEN Normal 0-5 [facility] Comment on above: Order Comment: CLEAN CATCH Performed By: #### L 400.0001 ####[facility] [address] [place], [address] UA DIP, URINE (POC)on 2023 BILIRUBIN UA (POCT) Negative Negative [facility] CLARITY UA (POCT) Cloudy [facility] COLOR UA (POCT) Yellow [facility] GLUCOSE UA (POCT) Negative Negative mg/dL [facility] Hemoglobin Ql (U) Negative Negative [facility] Interpretation and review of laboratory results Abnormal [facility] KETONE UA (POCT) Trace Negative mg/dL [facility] LEUKOCYTES UA (POCT) Trace Abnormal Negative [facility] NITRITE UA (POCT) Positive Abnormal Negative [facility] PH UA (POCT) 6.0 4.5 - 8.0 [facility] Protein Ql (U) 100 mg/dL Abnormal Negative [facility] SPECIFIC GRAVITY UA (POCT) 1.025 1.005 - 1.030 [facility] UROBILINOGEN UA (POCT) 0.2 Malaika l E.U./dL [facility] Location:[facility], [address] [place] [address], [place], [address] [facility] POINT OF CARE [facility] Absolute lymphocyte countOrd ered By: Brody Maynard on 07-31-2023 Lymphocytes Auto (Unsp spec) [#/Vol] 0.39 10*3/uL 0.83-4.51 [facility] Automated lymphocyte count a s percentage of total leukocytesOrdered By: Brody Maynard on 07-31-2023 Lymphocytes/100 WBC Auto (Unsp spec) 7.1 % 19-41 [facility] Basophil percentageOrdered B y: Brody Maynard on 07-31-2023 Basophil percentage 12.6 g/dL 13.0-16.5 [facility] Basophil percentage 113 mg/dL 74-106 [facility] Basophil percentage 139 mmol/L 136-145 [facility] Basophil percentage 4.0 mmol/L 3.5-5.1 [facility] Basophil percentage 102 mmol/L 98-107 [facility] Basophils (Bld) [#/Vol] 5.5 10*3/uL 4.4-11.0 [facility] Basophils (Bld) [#/Vol] 4.7 10*3/uL 2.0-7.7 [facility] Basophils/100 WBC (Bld) 85.0 % 47-70 [facility] Basophils/100 WBC (Bld) 7.1 % 0-10 [facility] Basophils/100 WBC (Bld) 0.0 % 0-5 [facility] Basophils/100 WBC (Bld) 0.4 % 0-1 [facility] Determination of erythrocyte mean corpuscular volume (MCV)Ordered By: Brody Maynard on 07-31-2023 MCV (RBC) [Entitic vol] 98.4 fL 80-94 [facility] Erythrocyte distribution wid th ratioOrdered By: Brody Maynard on 07-31-2023 Erythrocyte distribution width (RBC) [Ratio] 13.2 % 11.6-14.6 [facility] Erythrocyte distribution wid th standard deviationOrdered By: Brody Maynard on 07-31-2023 Erythrocyte distribution width (RBC) [Entitic vol] 47.2 fL 35.1-43.9 [facility] Hematocrit Auto (Bld) [Volum e fraction]Ordered By: Brody Maynard on 07-31-2023 Hematocrit (Bld) [Volume fraction] 37.9 % 40-54 [facility] Immature granulocytes/100 WB C Auto (Bld)Ordered By: Brody Maynard on 07-31-2023 Immature granulocytes/100 WBC (Bld) 0.400 % 0.0-0.9 [facility] No Panel InformationOrdered By: Brody Maynard on 07-31-2023 32.7 pg 27.0-32.0 [facility] 33.2 g/dL 32-36 [facility] 284 K/mm3 150-450 [facility] 10.1 fl 6.2-12.0 [facility] 0 % 0-5 [facility] 77 mL/min >60 [facility] 93 mL/min >60 [facility] 60.90 ml/min [facility] 22.8 RATIO 10-20 [facility] 29.0 mmol/L 21.0-32.0 [facility] RBC Auto (Bld) [#/Vol]Ordere d By: Brody Maynard on 07-31-2023 RBC (Bld) [#/Vol] 3.85 10*6/uL 4.6-6.2 [facility] Serum or plasma calcium luis urement (mass/volume)Ordered By: Brody Maynard on 07-31-2023 Calcium [Mass/Vol] 8.6 mg/dL 8.5-10.1 [facility] Serum or plasma creatinine m easurement (mass/volume)Ordered By: Brody Maynard on 07-31-2023 Creatinine [Mass/Vol] 1.01 mg/dL 0.70-1.30 [facility] Serum or plasma urea nitroge n measurement (mass/volume)Ordered By: Brody Maynard on 07-31-2023 Urea nitrogen [Mass/Vol] 23 mg/dL 7-18 [facility] Thin prep Papanicolaou smear with manual screeningOrdered By: Brody Maynard on 07-31-2023 Thin prep Papanicolaou smear with manual screening 8 5-15 [facility] Absolute lymphocyte countOrd ered By: Андрей Ng on 07-30-2023 Lymphocytes Auto (Unsp spec) [#/Vol] 0.60 10*3/uL 0.83-4.51 [facility] Automated lymphocyte count a s percentage of total leukocytesOrdered By: Андрей Ng on 07-30-2023 Lymphocytes/100 WBC Auto (Unsp spec) 10.9 % 19-41 [facility] Base excessOrdered By: ED CO OVIDER on 07-30-2023 Base excess Calc (BldV) [Moles/Vol] 2 mmol/L -1.0-3.5 [facility] Basophil percentageOrdered B y: Андрей Ng on 07-30-2023 Basophil percentage 0 SEEN /hpf 0-5 [facility] Basophil percentage 13.3 g/dL 13.0-16.5 [facility] Basophil percentage 114 mg/dL 74-106 [facility] Basophil percentage 138 mmol/L 136-145 [facility] Basophil percentage 4.2 mmol/L 3.5-5.1 [facility] Basophil percentage 102 mmol/L 98-107 [facility] Basophils (Bld) [#/Vol] 5.5 10*3/uL 4.4-11.0 [facility] Basophils (Bld) [#/Vol] 4.2 10*3/uL 2.0-7.7 [facility] Basophils/100 WBC (Bld) 76.5 % 47-70 [facility] Basophils/100 WBC (Bld) 10.7 % 0-10 [facility] Basophils/100 WBC (Bld) 0.5 % 0-5 [facility] Basophils/100 WBC (Bld) 0.9 % 0-1 [facility] Bilirubin Test strip Ql (U)O rdered By: Андрей Ng on 07-30-2023 Bilirubin Ql (U) Negative Negative [facility] CO2 (BldV) [Moles/Vol]Ordere d By: ED PROVIDER on 07-30-2023 CO2 [Moles/Vol] 29 mmol/L 23-33 [facility] Determination of erythrocyte mean corpuscular volume (MCV)Ordered By: Андрей Ng on 07-30-2023 MCV (RBC) [Entitic vol] 99.3 fL 80-94 [facility] Erythrocyte distribution wid th ratioOrdered By: Андрей Ng on 07-30-2023 Erythrocyte distribution width (RBC) [Ratio] 13.2 % 11.6-14.6 [facility] Erythrocyte distribution wid th standard deviationOrdered By: Андрей Ng on 07-30-2023 Erythrocyte distribution width (RBC) [Entitic vol] 48.3 fL 35.1-43.9 [facility] Hematocrit Auto (Bld) [Volum e fraction]Ordered By: Андрей Ng on 07-30-2023 Hematocrit (Bld) [Volume fraction] 40.4 % 40-54 [facility] Immature granulocytes/100 WB C Auto (Bld)Ordered By: Андрей Ng on 07-30-2023 Immature granulocytes/100 WBC (Bld) 0.500 % 0.0-0.9 [facility] Ketones Test strip Ql (U)Ord ered By: Андрей Ng on 07-30-2023 Ketones Ql (U) Negative Negative [facility] Mucus LM Ql (Urine sed)Order ed By: Андрей Ng on 07-30-2023 Mucus Ql (Urine sed) 0 SEEN /hpf [facility] Nitrite Test strip Ql (U)Ord ered By: Андрей Ng on 07-30-2023 Nitrite Ql (U) Negative Negative [facility] No Panel InformationOrdered By: Андрей Ng on 07-30-2023 0 SEEN /hpf 0-5 [facility] Influenzae A [facility] 32.7 pg 27.0-32.0 [facility] 32.9 g/dL 32-36 [facility] 262 K/mm3 150-450 [facility] 9.4 fl 6.2-12.0 [facility] 0 % 0-5 [facility] 67 mL/min >60 [facility] 81 mL/min >60 [facility] 55.00 ml/min [facility] 22.8 RATIO 10-20 [facility] 15 pg/mL 3.0-78.0 [facility] 29.0 mmol/L 21.0-32.0 [facility] 218.8 pg/mL 0-100 [facility] No Panel InformationOrdered By: ED PROVIDER on 07-30-2023 LASHAE [facility] Not entered [facility] Cannula [facility] 3.0 [facility] 28 mmol/L 22-26 [facility] 69 % 50-70 [facility] PCO2 venousOrdered By: ED CO BALTAZAR on 07-30-2023 CO2 (BldV) [Partial pressure] 48.6 mm[Hg] 41-51 [facility] PO2 venousOrdered By: ED PRO VIDER on 07-30-2023 Oxygen (BldV) [Partial pressure] 38 mm[Hg] 25-40 [facility] Protein Test strip Ql (U)Ord ered By: Андрей Ng on 07-30-2023 Protein Ql (U) 30 mg/dl Negative [facility] RBC Auto (Bld) [#/Vol]Ordere d By: Андрей Ng on 07-30-2023 RBC (Bld) [#/Vol] 4.07 10*6/uL 4.6-6.2 [facility] Serum or plasma calcium luis urement (mass/volume)Ordered By: Андрей Ng on 07-30-2023 Calcium [Mass/Vol] 9.2 mg/dL 8.5-10.1 [facility] Serum or plasma creatinine m easurement (mass/volume)Ordered By: Андрей Ng on 07-30-2023 Creatinine [Mass/Vol] 1.14 mg/dL 0.70-1.30 [facility] Serum or plasma urea nitroge n measurement (mass/volume)Ordered By: Андрей Ng on 07-30-2023 Urea nitrogen [Mass/Vol] 26 mg/dL 7-18 [facility] Squamous epithelial cells de tection in urine sediment by light microscopyOrdered By: Андрей Ng on 07-30-2023 Epithelial cells.squamous LM Ql (Urine sed) 0 SEEN /hpf 0-5 [facility] Thin prep Papanicolaou smear with manual screeningOrdered By: Андрей Ng on 07-30-2023 Thin prep Papanicolaou smear with manual screening 7 5-15 [facility] Urine blood detectionOrdered By: Андрей Ng on 07-30-2023 RBC Ql (U) 10 /ul Negative [facility] Urine clarityOrdered By: Italia Ng on 07-30-2023 Clarity (U) Clear Clear [facility] Urine color determinationOrd ered By: Андрей Ng on 07-30-2023 Color (U) Yellow Yellow [facility] Urine glucose detectionOrder ed By: Андрей Ng on 07-30-2023 Glucose Ql (U) Normal mg/dl Normal [facility] Urine leukocyte esterase det ection by dipstickOrdered By: Андрей Ng on 07-30-2023 Leukocyte esterase Test strip Ql (U) Negative Negative [facility] Urine pHOrdered By: Андрей garland on 07-30-2023 pH (U) 7.0 [pH] 5.0 - 8.0 [facility] Urine sediment bacteria coun t by microscopy (number/high power field)Ordered By: Андрей Ng on 07-30-2023 Bacteria LM.HPF (Urine sed) [#/Area] 0 /[HPF] None Seen [facility] Urine specific gravity measu rementOrdered By: Андрей Ng on 07-30-2023 Specific gravity (U) [Rel density] 1.010 1.002-1.030 [facility] Urine urobilinogen measureme ntOrdered By: Андрей Ng on 07-30-2023 Urobilinogen Ql (U) Normal mg/dl Normal [facility] Venous blood pH measurementO rdered By: ED PROVIDER on 07-30-2023 pH (BldV) 7.36 [pH] 7.32-7.42 [facility] Basophil percentageOrdered B y: Андрей Cooley on 07-27-2023 Basophil percentage 12.8 g/dL 13.0-16.5 [facility] Basophil percentage 103 mg/dL 74-106 [facility] Basophil percentage 141 mmol/L 136-145 [facility] Basophil percentage 3.7 mmol/L 3.5-5.1 [facility] Basophil percentage 110 mmol/L 98-107 [facility] Basophils (Bld) [#/Vol] 6.8 10*3/uL 4.4-11.0 [facility] Determination of erythrocyte mean corpuscular volume (MCV)Ordered By: Андрей Cooley on 07-27-2023 MCV (RBC) [Entitic vol] 98.5 fL 80-94 [facility] Erythrocyte distribution wid th ratioOrdered By: Андрей Cooley on 07-27-2023 Erythrocyte distribution width (RBC) [Ratio] 13.1 % 11.6-14.6 [facility] Erythrocyte distribution wid th standard deviationOrdered By: Андрей Cooley on 07-27-2023 Erythrocyte distribution width (RBC) [Entitic vol] 46.7 fL 35.1-43.9 [facility] Hematocrit Auto (Bld) [Volum e fraction]Ordered By: Андрей Cooley on 07-27-2023 Hematocrit (Bld) [Volume fraction] 38.9 % 40-54 [facility] No Panel InformationOrdered By: Андрей Cooley on 07-27-2023 32.4 pg 27.0-32.0 [facility] 32.9 g/dL 32-36 [facility] 246 K/mm3 150-450 [facility] 10.1 fl 6.2-12.0 [facility] 56 mL/min >60 [facility] 68 mL/min >60 [facility] 26.5 RATIO 10-20 [facility] 29.0 mmol/L 21.0-32.0 [facility] RBC Auto (Bld) [#/Vol]Ordere d By: Андрей Cooley on 07-27-2023 RBC (Bld) [#/Vol] 3.95 10*6/uL 4.6-6.2 [facility] Serum or plasma calcium luis urement (mass/volume)Ordered By: Андрей Cooley on 07-27-2023 Calcium [Mass/Vol] 9.5 mg/dL 8.5-10.1 [facility] Serum or plasma creatinine m easurement (mass/volume)Ordered By: Андрей Cooley on 07-27-2023 Creatinine [Mass/Vol] 1.32 mg/dL 0.70-1.30 [facility] Serum or plasma urea nitroge n measurement (mass/volume)Ordered By: Андрей Cooley on 07-27-2023 Urea nitrogen [Mass/Vol] 35 mg/dL 7-18 [facility] Thin prep Papanicolaou smear with manual screeningOrdered By: Андрей Cooley on 07-27-2023 Thin prep Papanicolaou smear with manual screening 2 5-15 [facility] Absolute lymphocyte countOrd ered By: Андрей Cooley on 07-25-2023 Lymphocytes Auto (Unsp spec) [#/Vol] 1.22 10*3/uL 0.83-4.51 [facility] Automated lymphocyte count a s percentage of total leukocytesOrdered By: Андрей Cooley on 07-25-2023 Lymphocytes/100 WBC Auto (Unsp spec) 17.6 % 19-41 [facility] Basophil percentageOrdered B y: Андрей Cooley on 07-25-2023 Basophil percentage 14.3 g/dL 13.0-16.5 [facility] Basophil percentage 126 mg/dL 74-106 [facility] Basophil percentage 138 mmol/L 136-145 [facility] Basophil percentage 3.5 mmol/L 3.5-5.1 [facility] Basophil percentage 105 mmol/L 98-107 [facility] Basophils (Bld) [#/Vol] 6.9 10*3/uL 4.4-11.0 [facility] Basophils (Bld) [#/Vol] 4.9 10*3/uL 2.0-7.7 [facility] Basophils/100 WBC (Bld) 70.5 % 47-70 [facility] Basophils/100 WBC (Bld) 10.0 % 0-10 [facility] Basophils/100 WBC (Bld) 0.7 % 0-5 [facility] Basophils/100 WBC (Bld) 0.9 % 0-1 [facility] Determination of erythrocyte mean corpuscular volume (MCV)Ordered By: Андрей Cooley on 07-25-2023 MCV (RBC) [Entitic vol] 95.2 fL 80-94 [facility] Erythrocyte distribution wid th ratioOrdered By: Андрей Cooley on 07-25-2023 Erythrocyte distribution width (RBC) [Ratio] 12.7 % 11.6-14.6 [facility] Erythrocyte distribution wid th standard deviationOrdered By: Андрей Cooley on 07-25-2023 Erythrocyte distribution width (RBC) [Entitic vol] 44.9 fL 35.1-43.9 [facility] Hematocrit Auto (Bld) [Volum e fraction]Ordered By: Андрей Cooley on 07-25-2023 Hematocrit (Bld) [Volume fraction] 41.9 % 40-54 [facility] Immature granulocytes/100 WB C Auto (Bld)Ordered By: Андрей Cooley on 07-25-2023 Immature granulocytes/100 WBC (Bld) 0.300 % 0.0-0.9 [facility] No Panel InformationOrdered By: Андрей Cooley on 07-25-2023 32.5 pg 27.0-32.0 [facility] 34.1 g/dL 32-36 [facility] 245 K/mm3 150-450 [facility] 9.7 fl 6.2-12.0 [facility] 0 % 0-5 [facility] 62 mL/min >60 [facility] 75 mL/min >60 [facility] 39.28 ml/min [facility] 13.2 RATIO 10-20 [facility] 25.0 mmol/L 21.0-32.0 [facility] RBC Auto (Bld) [#/Vol]Ordere d By: Андрей Cooley on 07-25-2023 RBC (Bld) [#/Vol] 4.40 10*6/uL 4.6-6.2 [facility] Serum or plasma calcium luis urement (mass/volume)Ordered By: Андрей Cooley on 07-25-2023 Calcium [Mass/Vol] 9.3 mg/dL 8.5-10.1 [facility] Serum or plasma creatinine m easurement (mass/volume)Ordered By: Андрей Cooley on 07-25-2023 Creatinine [Mass/Vol] 1.21 mg/dL 0.70-1.30 [facility] Serum or plasma urea nitroge n measurement (mass/volume)Ordered By: Андрей Cooley on 07-25-2023 Urea nitrogen [Mass/Vol] 16 mg/dL 7-18 [facility] Thin prep Papanicolaou smear with manual screeningOrdered By: Андрей Cooley on 07-25-2023 Thin prep Papanicolaou smear with manual screening 8 5-15 [facility] Absolute lymphocyte countOrd ered By: Raul Melchor on 07-24-2023 Lymphocytes Auto (Unsp spec) [#/Vol] 1.14 10*3/uL 0.83-4.51 [facility] Automated lymphocyte count a s percentage of total leukocytesOrdered By: Raul Melchor on 07-24-2023 Lymphocytes/100 WBC Auto (Unsp spec) 16.0 % 19-41 [facility] Basophil percentageOrdered B y: Raul Melchor on 07-24-2023 Basophils/100 WBC (Bld) 1.0 % 0-1 [facility] Chloride [Moles/Vol] 103 mmol/L 98-107 [facility] Eosinophils/100 WBC (Bld) 1.1 % 0-5 [facility] Glucose [Mass/Vol] 134 mg/dL 74-106 [facility] Comment on above: Fasting Glucose resu lt greater than or equal to 126 mg/dL suggests DIABETES MELLITUS per A.D.A. criteria. Hemoglobin (Bld) [Mass/Vol] 16.2 g/dL 13.0-16.5 [facility] Monocytes/100 WBC (Bld) 7.3 % 0-10 [facility] Neutrophils (Bld) [#/Vol] 5.3 10*3/uL 2.0-7.7 [facility] Neutrophils/100 WBC (Bld) 74.0 % 47-70 [facility] Potassium [Moles/Vol] 3.8 mmol/L 3.5-5.1 [facility] Comment on above: Moderate Hemolysis, Result may be falsely increased. Sodium [Moles/Vol] 139 mmol/L 136-145 [facility] WBC (Bld) [#/Vol] 7.1 10*3/uL 4.4-11.0 [facility] Determination of erythrocyte mean corpuscular volume (MCV)Ordered By: Raul Melchor on 07-24-2023 MCV (RBC) [Entitic vol] 94.8 fL 80-94 [facility] Erythrocyte distribution wid th ratioOrdered By: Raul Melchor on 07-24-2023 Erythrocyte distribution width (RBC) [Ratio] 12.8 % 11.6-14.6 [facility] Erythrocyte distribution wid th standard deviationOrdered By: Raul Melchor on 07-24-2023 Erythrocyte distribution width (RBC) [Entitic vol] 44.3 fL 35.1-43.9 [facility] Hematocrit Auto (Bld) [Volum e fraction]Ordered By: Raul Melchor on 07-24-2023 Hematocrit (Bld) [Volume fraction] 47.4 % 40-54 [facility] Immature granulocytes/100 WB C Auto (Bld)Ordered By: Raul Melchor on 07-24-2023 Immature granulocytes/100 WBC (Bld) 0.600 % 0.0-0.9 [facility] Comment on above: IG% - Immature Granu locytes (promyelocytes, myelocytes and metamyelocytes) > 1% indicates that a LEFT SHIFT is Present. Laboratory - Chemistry and C hemistry - challengeOrdered By: Raul Melchor on 07-24-2023 CO2 [Moles/Vol] 28.0 mmol/L 21.0-32.0 [facility] Urea nitrogen/Creatinine [Mass ratio] 14.1 mg/mg 10-20 [facility] Laboratory - Hematology and Cell countsOrdered By: Raul Melchor on 07-24-2023 MCH (RBC) [Entitic mass] 32.4 pg 27.0-32.0 [facility] MCHC (RBC) [Mass/Vol] 34.2 g/dL 32-36 [facility] Nucleated RBC/100 WBC (Bld) [Ratio] 0 % 0-5 [facility] Platelets (Bld) [#/Vol] 285 10*3/uL 150-450 [facility] No Panel InformationOrdered By: Raul Melchor on 07-24-2023 Estimated Creatinine Clearance Calc 48.70 ml/min [facility] Estimated GFR (MDRD) Amer 71 mL/min >60 [facility] Comment on above: GFR Calc Estimated GFR (MDRD) Non-Af Amer 58 mL/min >60 [facility] Comment on above: Non- GFR Calc Platelet mean volume Ye-Ec ker (Bld) [Entitic vol]Ordered By: Raul Melchor on 07-24-2023 Platelet mean volume (Bld) [Entitic vol] 9.8 fL 6.2-12.0 [facility] RBC Auto (Bld) [#/Vol]Ordere d By: Raul Melchor on 07-24-2023 RBC (Bld) [#/Vol] 5.00 10*6/uL 4.6-6.2 [facility] Serum or plasma calcium luis urement (mass/volume)Ordered By: Raul Melchor on 07-24-2023 Calcium [Mass/Vol] 9.8 mg/dL 8.5-10.1 [facility] Serum or plasma creatinine m easurement (mass/volume)Ordered By: Raul Melchor on 07-24-2023 Creatinine [Mass/Vol] 1.28 mg/dL 0.70-1.30 [facility] Comment on above: The validity of the calculated GFR & GFRAA in patients over 70 years has not been determined. Clinical correlation is essential. Serum or plasma urea nitroge n measurement (mass/volume)Ordered By: Raul Melchor on 07-24-2023 Urea nitrogen [Mass/Vol] 18 mg/dL 7-18 [facility] Thin prep Papanicolaou smear with manual screeningOrdered By: Raul Melchor on 07-24-2023 Thin prep Papanicolaou smear with manual screening 8 5-15 [facility] UAon 07-10-2023 Color (U) Yellow Normal [facility] [place] Comment on above: Performed By: #### U A #### [place] [address] Glucose (U) [Mass/Vol] Negative Normal Negative [facility] ([place] Comment on above: Performed By: #### U A #### [place] [address] Ketones Ql (U) Negative Normal Neg-Trace [facility] ([place] Comment on above: Performed By: #### U A #### [place] [address] UA Appear Clear Normal Clear [facility] ([place] Comment on above: Performed By: #### U A #### [place] [address] UA Blood Negative Normal Neg-Trace [facility] ([place] Comment on above: Performed By: #### U A #### [place] [address] UA Leuk Est Negative Normal Negative [facility] ([place] Comment on above: Performed By: #### U A #### [place] [address] UA Nitrite Negative Normal Negative [facility] ([place] Comment on above: Performed By: #### U A #### [place] [address] UA pH 5.5 Normal 5.0 - 8.0 [facility] ([place] Comment on above: Performed By: #### U A #### [place] [address] UA Protein 30 mg/dL Normal Negative [facility] ([place] Comment on above: Performed By: #### U A #### [place] [address] UA Spec Grav 1.020 Normal 1.006-1.029 [facility] ([place] Comment on above: Performed By: #### U A #### [place] [address] UA Specimen Type Void Normal [facility] ([place] Comment on above: Performed By: #### U A #### [facility] [address] [place] [id number] UA Urobilinogen 0.2 E.U./dL Normal 0.2-1.0 [facility] ([place] Comment on above: Performed By: #### U A #### [facility] [address] [id number] Urobilinogen (U) [Mass/Vol] Negative Normal Neg-Trace [facility] ([place] Comment on above: Performed By: #### U A #### [facility] [address] [address] Absolute lymphocyte countOrd ered By: Daija Morton on 06-14-2023 Lymphocytes Auto (Unsp spec) [#/Vol] 1.09 10*3/uL 0.83-4.51 [facility] Basophil percentageOrdered B y: Daija Morton on 06-14-2023 Basophil percentage 108 mg/dL 74-106 [facility] Basophil percentage 139 mmol/L 136-145 [facility] Basophil percentage 4.2 mmol/L 3.5-5.1 [facility] Basophil percentage 104 mmol/L 98-107 [facility] Basophils (Bld) [#/Vol] 6.5 10*3/uL 4.4-11.0 [facility] Basophils (Bld) [#/Vol] 4.7 10*3/uL 2.0-7.7 [facility] Basophils/100 WBC (Bld) 1.4 % 0-1 [facility] Basophils/100 WBC (Bld) 72.2 % 47-70 [facility] Basophils/100 WBC (Bld) 2.0 % 0-5 [facility] Chloride [Moles/Vol] 104 mmol/L 98-107 [facility] Eosinophils/100 WBC (Bld) 2.0 % 0-5 [facility] Glucose [Mass/Vol] 108 mg/dL 74-106 [facility] Comment on above: Fasting Glucose resu lt from 100 to 125 mg/dL suggests IMPAIRED HOMEOSTASIS per A.D.A. criteria. Neutrophils (Bld) [#/Vol] 4.7 10*3/uL 2.0-7.7 [facility] Neutrophils/100 WBC (Bld) 72.2 % 47-70 [facility] Potassium [Moles/Vol] 4.2 mmol/L 3.5-5.1 [facility] Sodium [Moles/Vol] 139 mmol/L 136-145 [facility] WBC (Bld) [#/Vol] 6.5 10*3/uL 4.4-11.0 [facility] Blood erythrocytes count (nu mber/volume)Ordered By: Daijara Morton on 06-14-2023 RBC (Bld) [#/Vol] 4.73 10*6/uL 4.6-6.2 [facility] Blood hemoglobin measurement (mass/volume)Ordered By: Daija Morton on 06-14-2023 Hemoglobin (Bld) [Mass/Vol] 15.8 g/dL 13.0-16.5 [facility] Blood lymphocytes/100 leukoc ytesOrdered By: Daija Morton on 06-14-2023 Lymphocytes/100 WBC (Bld) 16.8 % 19-41 [facility] Blood monocytes/100 leukocyt esOrdered By: Daija Morton on 06-14-2023 Monocytes/100 WBC (Bld) 7.1 % 0-10 [facility] Blood platelet mean volumeOr dered By: Daija Morton on 06-14-2023 Platelet mean volume (Bld) [Entitic vol] 9.9 fL 6.2-12.0 [facility] Determination of erythrocyte mean corpuscular volume (MCV)Ordered By: Daija Morton on 06-14-2023 MCV (RBC) [Entitic vol] 96.6 fL 80-94 [facility] Hematocrit Auto (Bld) [Volum e fraction]Ordered By: aDija Morton on 06-14-2023 Hematocrit (Bld) [Volume fraction] 45.7 % 40-54 [facility] Laboratory - Chemistry and C hemistry - challengeOrdered By: Daija Morton on 06-14-2023 CO2 [Moles/Vol] 30.0 mmol/L 21.0-32.0 [facility] Urea nitrogen/Creatinine [Mass ratio] 16.1 mg/mg 10- [facility] Laboratory - Hematology and Cell countsOrdered By: Daija Morton on 06-14-2023 Erythrocyte distribution width (RBC) [Entitic vol] 46.5 fL 35.1-43.9 [facility] Erythrocyte distribution width (RBC) [Ratio] 13.1 % 11.6-14.6 [facility] Immature granulocytes/100 WBC (Bld) 0.500 % 0.0-0.9 [facility] Comment on above: IG% - Immature Granu locytes (promyelocytes, myelocytes and metamyelocytes) > 1% indicates that a LEFT SHIFT is Present. MCH (RBC) [Entitic mass] 33.4 pg 27.0-32.0 [facility] Nucleated RBC/100 WBC (Bld) [Ratio] 0 % 0-5 [facility] MCHC Auto (RBC) [Mass/Vol]Or dered By: Daija Morton on 06-14-2023 MCHC (RBC) [Mass/Vol] 34.6 g/dL 32-36 [facility] No Panel InformationOrdered By: Daija Morton on 06-14-2023 Estimated GFR (MDRD) Amer 73 mL/min >60 [facility] Comment on above: GFR Calc Estimated GFR (MDRD) Non-Af Amer 61 mL/min >60 [facility] Comment on above: Non- GFR Calc 33.4 pg 27.0-32.0 [facility] 13.1 % 11.6-14.6 [facility] 46.5 fl 35.1-43.9 [facility] 0.500 % 0.0-0.9 [facility] 0 % 0-5 [facility] 61 mL/min >60 [facility] 73 mL/min >60 [facility] 16.1 RATIO 04-07 [facility] 30.0 mmol/L 21.0-32.0 [facility] Platelets bldOrdered By: Nemesio Morton on 06-14-2023 Platelets (Bld) [#/Vol] 285 10*3/uL 150-450 [facility] Serum or plasma calcium luis urement (mass/volume)Ordered By: Daija Morton on 06-14-2023 Calcium [Mass/Vol] 9.8 mg/dL 8.5-10.1 [facility] Serum or plasma creatinine m easurement (mass/volume)Ordered By: Daija Morton on 06-14-2023 Creatinine [Mass/Vol] 1.24 mg/dL 0.70-1.30 [facility] Comment on above: The validity of the calculated GFR & GFRAA in patients over 70 years has not been determined. Clinical correlation is essential. Serum or plasma urea nitroge n measurement (mass/volume)Ordered By: Daija Morton on 06-14-2023 Urea nitrogen [Mass/Vol] 20 mg/dL 7-18 [facility] Thin prep Papanicolaou smear with manual screeningOrdered By: Daijara Morton on 06-14-2023 Thin prep Papanicolaou smear with manual screening 5 5-15 [facility] Basophil percentageOrdered B y: Андрей Cooley on 05-19-2023 Basophil percentage 100 mg/dL 74-106 [facility] Basophil percentage 6.5 g/dL 6.4-8.2 [facility] Basophil percentage 0.30 mg/dL 0.20-1.00 [facility] Basophil percentage 141 mmol/L 136-145 [facility] Basophil percentage 3.6 mmol/L 3.5-5.1 [facility] Basophil percentage 109 mmol/L 98-107 [facility] Basophils (Bld) [#/Vol] 6.2 10*3/uL 4.4-11.0 [facility] Bilirubin [Mass/Vol] 0.30 mg/dL 0.20-1.00 [facility] Comment on above: For patients on eltr ombopag therapy, use of Dimension [place] TBIL is not recommended. Chloride [Moles/Vol] 109 mmol/L 98-107 [facility] Glucose [Mass/Vol] 100 mg/dL 74-106 [facility] Comment on above: Fasting Glucose resu lt from 100 to 125 mg/dL suggests IMPAIRED HOMEOSTASIS per A.D.A. criteria. Potassium [Moles/Vol] 3.6 mmol/L 3.5-5.1 [facility] Protein [Mass/Vol] 6.5 g/dL 6.4-8.2 [facility] Sodium [Moles/Vol] 141 mmol/L 136-145 [facility] WBC (Bld) [#/Vol] 6.2 10*3/uL 4.4-11.0 [facility] Blood erythrocytes count (nu mber/volume)Ordered By: Андрей Cooley on 05-19-2023 RBC (Bld) [#/Vol] 4.24 10*6/uL 4.6-6.2 [facility] Blood hemoglobin measurement (mass/volume)Ordered By: Андрей Cooley on 05-19-2023 Hemoglobin (Bld) [Mass/Vol] 13.8 g/dL 13.0-16.5 [facility] Blood platelet mean volumeOr dered By: Андрей Cooley on 05-19-2023 Platelet mean volume (Bld) [Entitic vol] 9.9 fL 6.2-12.0 [facility] Determination of erythrocyte mean corpuscular volume (MCV)Ordered By: Андрей Cooley on 05-19-2023 MCV (RBC) [Entitic vol] 99.5 fL 80-94 [facility] Hematocrit Auto (Bld) [Volum e fraction]Ordered By: Андрей Cooley on 05-19-2023 Hematocrit (Bld) [Volume fraction] 42.2 % 40-54 [facility] Laboratory - Chemistry and C hemistry - challengeOrdered By: Андрей Cooley on 05-19-2023 ALP [Catalytic activity/Vol] 72 U/L 45-117 [facility] ALT [Catalytic activity/Vol] 33 U/L 16-61 [facility] CO2 [Moles/Vol] 29.0 mmol/L 21.0-32.0 [facility] [facility] Globulin (S) [Mass/Vol] 3.1 g/dL 2.2-4.2 [facility] Urea nitrogen/Creatinine [Mass ratio] 18.6 mg/mg 10-20 [facility] Laboratory - Hematology and Cell countsOrdered By: Андрей Cooley on 05-19-2023 Erythrocyte distribution width (RBC) [Entitic vol] 52.4 fL 35.1-43.9 [facility] Erythrocyte distribution width (RBC) [Ratio] 14.3 % 11.6-14.6 [facility] MCH (RBC) [Entitic mass] 32.5 pg 27.0-32.0 [facility] MCHC Auto (RBC) [Mass/Vol]Or dered By: Андрей Cooley on 05-19-2023 MCHC (RBC) [Mass/Vol] 32.7 g/dL 32-36 [facility] No Panel InformationOrdered By: Андрей Cooley on 05-19-2023 Estimated GFR (MDRD) Amer 78 mL/min >60 [facility] Comment on above: GFR Calc Estimated GFR (MDRD) Non-Af Amer 64 mL/min >60 [facility] Comment on above: Non- GFR Calc 32.5 pg 27.0-32.0 [facility] 14.3 % 11.6-14.6 [facility] 52.4 fl 35.1-43.9 [facility] 64 mL/min >60 [facility] 78 mL/min >60 [facility] 18.6 RATIO 10-20 [facility] 3.1 g/dL 2.2-4.2 [facility] 72 U/L 45-117 [facility] 33 U/L 16-61 [facility] 29.0 mmol/L 21.0-32.0 [facility] Platelets bldOrdered By: Italia Cooley on 05-19-2023 Platelets (Bld) [#/Vol] 284 10*3/uL 150-450 [facility] Serum or plasma albumin luis urement (mass/volume)Ordered By: Андрей Cooley on 05-19-2023 Albumin [Mass/Vol] 3.4 g/dL 3.2-5.0 [facility] Serum or plasma albumin/glob ulin mass ratioOrdered By: Андрей Cooley on 05-19-2023 Albumin/Globulin [Mass ratio] 1.1 {ratio} 0.9-2.4 [facility] Serum or plasma calcium luis urement (mass/volume)Ordered By: Андрей Cooley on 05-19-2023 Calcium [Mass/Vol] 8.7 mg/dL 8.5-10.1 [facility] Serum or plasma creatinine m easurement (mass/volume)Ordered By: Андрей Cooley on 05-19-2023 Creatinine [Mass/Vol] 1.18 mg/dL 0.70-1.30 [facility] Comment on above: The validity of the calculated GFR & GFRAA in patients over 70 years has not been determined. Clinical correlation is essential. Serum or plasma urea nitroge n measurement (mass/volume)Ordered By: Андрей Cooley on 05-19-2023 Urea nitrogen [Mass/Vol] 22 mg/dL 7-18 [facility] Thin prep Papanicolaou smear with manual screeningOrdered By: Андрей Cooley on 05-19-2023 Thin prep Papanicolaou smear with manual screening 17 U/L 15-37 [facility] Thin prep Papanicolaou smear with manual screening 3 5-15 [facility] Basophil percentageOrdered B y: Андрей Cooley on 04-19-2023 Basophil percentage 92 mg/dL 74-106 [facility] Basophil percentage 6.8 g/dL 6.4-8.2 [facility] Basophil percentage 0.20 mg/dL 0.20-1.00 [facility] Basophil percentage 140 mmol/L 136-145 [facility] Basophil percentage 4.0 mmol/L 3.5-5.1 [facility] Basophil percentage 105 mmol/L 98-107 [facility] Basophils (Bld) [#/Vol] 6.2 10*3/uL 4.4-11.0 [facility] Bilirubin [Mass/Vol] 0.20 mg/dL 0.20-1.00 [facility] Comment on above: For patients on eltr ombopag therapy, use of Dimension [place] TBIL is not recommended. Chloride [Moles/Vol] 105 mmol/L 98-107 [facility] Glucose [Mass/Vol] 92 mg/dL 74-106 [facility] Potassium [Moles/Vol] 4.0 mmol/L 3.5-5.1 [facility] Protein [Mass/Vol] 6.8 g/dL 6.4-8.2 [facility] Sodium [Moles/Vol] 140 mmol/L 136-145 [facility] WBC (Bld) [#/Vol] 6.2 10*3/uL 4.4-11.0 [facility] Blood erythrocytes count (nu mber/volume)Ordered By: Андрей Cooley on 04-19-2023 RBC (Bld) [#/Vol] 4.26 10*6/uL 4.6-6.2 [facility] Blood hemoglobin measurement (mass/volume)Ordered By: Андрей Cooley on 04-19-2023 Hemoglobin (Bld) [Mass/Vol] 13.6 g/dL 13.0-16.5 [facility] Blood platelet mean volumeOr dered By: Андрей Cooley on 04-19-2023 Platelet mean volume (Bld) [Entitic vol] 9.7 fL 6.2-12.0 [facility] Determination of erythrocyte mean corpuscular volume (MCV)Ordered By: Андрей Cooley on 04-19-2023 MCV (RBC) [Entitic vol] 99.5 fL 80-94 [facility] Hematocrit Auto (Bld) [Volum e fraction]Ordered By: Андрей Cooley on 04-19-2023 Hematocrit (Bld) [Volume fraction] 42.4 % 40-54 [facility] Laboratory - Chemistry and C hemistry - challengeOrdered By: Андрей Cooley on 04-19-2023 ALP [Catalytic activity/Vol] 82 U/L 45-117 [facility] ALT [Catalytic activity/Vol] 27 U/L 16-61 [facility] CO2 [Moles/Vol] 29.0 mmol/L 21.0-32.0 [facility] Globulin (S) [Mass/Vol] 3.5 g/dL 2.2-4.2 [facility] Urea nitrogen/Creatinine [Mass ratio] 22.2 mg/mg 10-20 [facility] Laboratory - Hematology and Cell countsOrdered By: Андрей Cooley on 04-19-2023 Erythrocyte distribution width (RBC) [Entitic vol] 51.8 fL 35.1-43.9 [facility] Erythrocyte distribution width (RBC) [Ratio] 14.4 % 11.6-14.6 [facility] MCH (RBC) [Entitic mass] 31.9 pg 27.0-32.0 [facility] MCHC Auto (RBC) [Mass/Vol]Or dered By: Андрей Cooley on 04-19-2023 MCHC (RBC) [Mass/Vol] 32.1 g/dL 32-36 [facility] No Panel InformationOrdered By: Андрей Cooley on 04-19-2023 Estimated GFR (MDRD) Amer 86 mL/min >60 [facility] Comment on above: GFR Calc Estimated GFR (MDRD) Non-Af Amer 71 mL/min >60 [facility] Comment on above: Non- GFR Calc 31.9 pg 27.0-32.0 [facility] 14.4 % 11.6-14.6 [facility] 51.8 fl 35.1-43.9 [facility] 71 mL/min >60 [facility] 86 mL/min >60 [facility] 22.2 RATIO 10-20 [facility] 3.5 g/dL 2.2-4.2 [facility] 82 U/L 45-117 [facility] 27 U/L 16-61 [facility] 29.0 mmol/L 21.0-32.0 [facility] Platelets bldOrdered By: Italia Cooley on 04-19-2023 Platelets (Bld) [#/Vol] 382 10*3/uL 150-450 [facility] Serum or plasma albumin luis urement (mass/volume)Ordered By: Андрей Cooley on 04-19-2023 Albumin [Mass/Vol] 3.3 g/dL 3.2-5.0 [facility] Serum or plasma albumin/glob ulin mass ratioOrdered By: Андрей Cooley on 04-19-2023 Albumin/Globulin [Mass ratio] 0.9 {ratio} 0.9-2.4 [facility] Serum or plasma calcium luis urement (mass/volume)Ordered By: Андрей Cooley on 04-19-2023 Calcium [Mass/Vol] 9.1 mg/dL 8.5-10.1 [facility] Serum or plasma creatinine m easurement (mass/volume)Ordered By: Андрей Cooley on 04-19-2023 Creatinine [Mass/Vol] 1.08 mg/dL 0.70-1.30 [facility] Comment on above: The validity of the calculated GFR & GFRAA in patients over 70 years has not been determined. Clinical correlation is essential. Serum or plasma urea nitroge n measurement (mass/volume)Ordered By: Андрей Cooley on 04-19-2023 Urea nitrogen [Mass/Vol] 24 mg/dL 7-18 [facility] Thin prep Papanicolaou smear with manual screeningOrdered By: Андрей Cooley on 04-19-2023 Thin prep Papanicolaou smear with manual screening 19 U/L 15-37 [facility] Thin prep Papanicolaou smear with manual screening 6 5-15 [facility] Whole blood hemoglobin A1c/t otal hemoglobin ratio (mass fraction)Ordered By: Андрей Cooley on 04-17-2023 HbA1c (Bld) [Mass fraction] 5.2 % 3.8-5.6 [facility] Comment on above: Normal < 5.7 % Predi abetic 5.7 - 6.4 % Diabetic >or= 6.5 % Please note range changes. Basophil percentageOrdered B y: Андрей Cooley on 04-12-2023 Basophil percentage 92 mg/dL 74-106 [facility] Basophil percentage 6.4 g/dL 6.4-8.2 [facility] Basophil percentage 0.10 mg/dL 0.20-1.00 [facility] Basophil percentage 139 mmol/L 136-145 [facility] Basophil percentage 4.1 mmol/L 3.5-5.1 [facility] Basophil percentage 107 mmol/L 98-107 [facility] Basophils (Bld) [#/Vol] 7.8 10*3/uL 4.4-11.0 [facility] Bilirubin [Mass/Vol] 0.10 mg/dL 0.20-1.00 [facility] Comment on above: For patients on eltr ombopag therapy, use of [employer] [place] TBIL is not recommended. Chloride [Moles/Vol] 107 mmol/L 98-107 [facility] Glucose [Mass/Vol] 92 mg/dL 74-106 [facility] Potassium [Moles/Vol] 4.1 mmol/L 3.5-5.1 [facility] Protein [Mass/Vol] 6.4 g/dL 6.4-8.2 [facility] Sodium [Moles/Vol] 139 mmol/L 136-145 [facility] WBC (Bld) [#/Vol] 7.8 10*3/uL 4.4-11.0 [facility] Blood erythrocytes count (nu mber/volume)Ordered By: Андрей Cooley on 04-12-2023 RBC (Bld) [#/Vol] 4.04 10*6/uL 4.6-6.2 [facility] Blood hemoglobin measurement (mass/volume)Ordered By: Андрей Cooley on 04-12-2023 Hemoglobin (Bld) [Mass/Vol] 13.2 g/dL 13.0-16.5 [facility] Blood platelet mean volumeOr dered By: Андрей Cooley on 04-12-2023 Platelet mean volume (Bld) [Entitic vol] 9.7 fL 6.2-12.0 [facility] Determination of erythrocyte mean corpuscular volume (MCV)Ordered By: Андрей Cooley on 04-12-2023 MCV (RBC) [Entitic vol] 97.5 fL 80-94 [facility] Hematocrit Auto (Bld) [Volum e fraction]Ordered By: Андрей Cooley on 04-12-2023 Hematocrit (Bld) [Volume fraction] 39.4 % 40-54 [facility] Laboratory - Chemistry and C hemistry - challengeOrdered By: Андрей Cooley on 04-12-2023 ALP [Catalytic activity/Vol] 88 U/L 45-117 [facility] ALT [Catalytic activity/Vol] 32 U/L 16-61 [facility] CO2 [Moles/Vol] 26.0 mmol/L 21.0-32.0 [facility] Globulin (S) [Mass/Vol] 3.4 g/dL 2.2-4.2 [facility] Urea nitrogen/Creatinine [Mass ratio] 20.2 mg/mg 10-20 [facility] Laboratory - Hematology and Cell countsOrdered By: Андрей Cooley on 04-12-2023 Erythrocyte distribution width (RBC) [Entitic vol] 49.3 fL 35.1-43.9 [facility] Erythrocyte distribution width (RBC) [Ratio] 13.8 % 11.6-14.6 [facility] MCH (RBC) [Entitic mass] 32.7 pg 27.0-32.0 [facility] MCHC Auto (RBC) [Mass/Vol]Or dered By: Андрей Cooley on 04-12-2023 MCHC (RBC) [Mass/Vol] 33.5 g/dL 32-36 [facility] No Panel InformationOrdered By: Андрей Cooley on 04-12-2023 Estimated GFR (MDRD) Amer 77 mL/min >60 [facility] Comment on above: GFR Calc Estimated GFR (MDRD) Non-Af Amer 64 mL/min >60 [facility] Comment on above: Non- GFR Calc 32.7 pg 27.0-32.0 [facility] 13.8 % 11.6-14.6 [facility] 49.3 fl 35.1-43.9 [facility] 64 mL/min >60 [facility] 77 mL/min >60 [facility] 20.2 RATIO 10-20 [facility] 3.4 g/dL 2.2-4.2 [facility] 88 U/L 45-117 [facility] 32 U/L 16-61 [facility] 26.0 mmol/L 21.0-32.0 [facility] Platelets bldOrdered By: Italia Cooley on 04-12-2023 Platelets (Bld) [#/Vol] 385 10*3/uL 150-450 [facility] Serum or plasma albumin luis urement (mass/volume)Ordered By: Андрей Cooley on 04-12-2023 Albumin [Mass/Vol] 3.0 g/dL 3.2-5.0 [facility] Serum or plasma albumin/glob ulin mass ratioOrdered By: Андрей Cooley on 04-12-2023 Albumin/Globulin [Mass ratio] 0.9 {ratio} 0.9-2.4 [facility] Serum or plasma calcium luis urement (mass/volume)Ordered By: Андрей Cooley on 04-12-2023 Calcium [Mass/Vol] 8.7 mg/dL 8.5-10.1 [facility] Serum or plasma creatinine m easurement (mass/volume)Ordered By: Андрей Cooley on 04-12-2023 Creatinine [Mass/Vol] 1.19 mg/dL 0.70-1.30 [facility] Comment on above: The validity of the calculated GFR & GFRAA in patients over 70 years has not been determined. Clinical correlation is essential. Serum or plasma urea nitroge n measurement (mass/volume)Ordered By: Андрей Cooley on 04-12-2023 Urea nitrogen [Mass/Vol] 24 mg/dL 7-18 [facility] Thin prep Papanicolaou smear with manual screeningOrdered By: Андрей Cooley on 04-12-2023 Thin prep Papanicolaou smear with manual screening 21 U/L 15-37 [facility] Thin prep Papanicolaou smear with manual screening 6 5-15 [facility] Basophil percentageOrdered B y: Андрей Cooley on 04-05-2023 Basophil percentage 105 mg/dL 74-106 [facility] Basophil percentage 6.7 g/dL 6.4-8.2 [facility] Basophil percentage 0.20 mg/dL 0.20-1.00 [facility] Basophil percentage 139 mmol/L 136-145 [facility] Basophil percentage 3.9 mmol/L 3.5-5.1 [facility] Basophil percentage 105 mmol/L 98-107 [facility] Basophils (Bld) [#/Vol] 5.8 10*3/uL 4.4-11.0 [facility] Bilirubin [Mass/Vol] 0.20 mg/dL 0.20-1.00 [facility] Comment on above: For patients on eltr ombopag therapy, use of [employer] [place] TBIL is not recommended. Chloride [Moles/Vol] 105 mmol/L 98-107 [facility] Glucose [Mass/Vol] 105 mg/dL 74-106 [facility] Comment on above: Fasting Glucose resu lt from 100 to 125 mg/dL suggests IMPAIRED HOMEOSTASIS per A.D.A. criteria. Potassium [Moles/Vol] 3.9 mmol/L 3.5-5.1 [facility] Protein [Mass/Vol] 6.7 g/dL 6.4-8.2 [facility] Sodium [Moles/Vol] 139 mmol/L 136-145 [facility] WBC (Bld) [#/Vol] 5.8 10*3/uL 4.4-11.0 [facility] Blood erythrocytes count (nu mber/volume)Ordered By: Андрей Cooley on 04-05-2023 RBC (Bld) [#/Vol] 4.40 10*6/uL 4.6-6.2 [facility] Blood hemoglobin measurement (mass/volume)Ordered By: Андрей Cooley on 04-05-2023 Hemoglobin (Bld) [Mass/Vol] 13.9 g/dL 13.0-16.5 [facility] Blood platelet mean volumeOr dered By: Андрей Cooley on 04-05-2023 Platelet mean volume (Bld) [Entitic vol] 9.5 fL 6.2-12.0 [facility] Determination of erythrocyte mean corpuscular volume (MCV)Ordered By: Андрей Cooley on 04-05-2023 MCV (RBC) [Entitic vol] 96.8 fL 80-94 [facility] Hematocrit Auto (Bld) [Volum e fraction]Ordered By: Андрей Cooley on 04-05-2023 Hematocrit (Bld) [Volume fraction] 42.6 % 40-54 [facility] Laboratory - Chemistry and C hemistry - challengeOrdered By: Андрей Cooley on 04-05-2023 ALP [Catalytic activity/Vol] 60 U/L 45-117 [facility] ALT [Catalytic activity/Vol] 54 U/L 16-61 [facility] CO2 [Moles/Vol] 28.0 mmol/L 21.0-32.0 [facility] Globulin (S) [Mass/Vol] 3.8 g/dL 2.2-4.2 [facility] Urea nitrogen/Creatinine [Mass ratio] 22.0 mg/mg 10-20 [facility] Laboratory - Hematology and Cell countsOrdered By: Андрей Cooley on 04-05-2023 Erythrocyte distribution width (RBC) [Entitic vol] 50.1 fL 35.1-43.9 [facility] Erythrocyte distribution width (RBC) [Ratio] 14.0 % 11.6-14.6 [facility] MCH (RBC) [Entitic mass] 31.6 pg 27.0-32.0 [facility] MCHC Auto (RBC) [Mass/Vol]Or dered By: Андрей Cooley on 04-05-2023 MCHC (RBC) [Mass/Vol] 32.6 g/dL 32-36 [facility] No Panel InformationOrdered By: Андрей Cooley on 04-05-2023 Estimated GFR (MDRD) Amer 85 mL/min >60 [facility] Comment on above: GFR Calc Estimated GFR (MDRD) Non-Af Amer 70 mL/min >60 [facility] Comment on above: Non- GFR Calc 31.6 pg 27.0-32.0 [facility] 14.0 % 11.6-14.6 [facility] 50.1 fl 35.1-43.9 [facility] 70 mL/min >60 [facility] 85 mL/min >60 [facility] 22.0 RATIO 10-20 [facility] 3.8 g/dL 2.2-4.2 [facility] 60 U/L 45-117 [facility] 54 U/L 16-61 [facility] 28.0 mmol/L 21.0-32.0 [facility] Platelets bldOrdered By: Italia Cooley on 04-05-2023 Platelets (Bld) [#/Vol] 399 10*3/uL 150-450 [facility] Serum or plasma albumin luis urement (mass/volume)Ordered By: Андрей Cooley on 04-05-2023 Albumin [Mass/Vol] 2.9 g/dL 3.2-5.0 [facility] Serum or plasma albumin/glob ulin mass ratioOrdered By: Андрей Cooley on 04-05-2023 Albumin/Globulin [Mass ratio] 0.8 {ratio} 0.9-2.4 [facility] Serum or plasma calcium luis urement (mass/volume)Ordered By: Андрей Cooley on 04-05-2023 Calcium [Mass/Vol] 9.3 mg/dL 8.5-10.1 [facility] Serum or plasma creatinine m easurement (mass/volume)Ordered By: Андрей Cooley on 04-05-2023 Creatinine [Mass/Vol] 1.09 mg/dL 0.70-1.30 [facility] Comment on above: The validity of the calculated GFR & GFRAA in patients over 70 years has not been determined. Clinical correlation is essential. Serum or plasma urea nitroge n measurement (mass/volume)Ordered By: Андрей Cooley on 04-05-2023 Urea nitrogen [Mass/Vol] 24 mg/dL 7-18 [facility] Thin prep Papanicolaou smear with manual screeningOrdered By: Андрей Cooley on 04-05-2023 Thin prep Papanicolaou smear with manual screening 38 U/L 15-37 [facility] Thin prep Papanicolaou smear with manual screening 6 5-15 [facility] Absolute lymphocyte countOrd ered By: Frankie Galindo on 04-04-2023 Lymphocytes Auto (Unsp spec) [#/Vol] 1.49 10*3/uL 0.83-4.51 [facility] Basophil percentageOrdered B y: Frankie Galindo on 04-04-2023 Basophil percentage 101 mg/dL 74-106 [facility] Basophil percentage 136 mmol/L 136-145 [facility] Basophil percentage 3.9 mmol/L 3.5-5.1 [facility] Basophil percentage 103 mmol/L 98-107 [facility] Basophils (Bld) [#/Vol] 6.3 10*3/uL 4.4-11.0 [facility] Basophils (Bld) [#/Vol] 4.1 10*3/uL 2.0-7.7 [facility] Basophils/100 WBC (Bld) 1.1 % 0-1 [facility] Basophils/100 WBC (Bld) 64.4 % 47-70 [facility] Basophils/100 WBC (Bld) 3.3 % 0-5 [facility] Chloride [Moles/Vol] 103 mmol/L 98-107 [facility] Eosinophils/100 WBC (Bld) 3.3 % 0-5 [facility] Glucose [Mass/Vol] 101 mg/dL 74-106 [facility] Comment on above: Fasting Glucose resu lt from 100 to 125 mg/dL suggests IMPAIRED HOMEOSTASIS per A.D.A. criteria. Neutrophils (Bld) [#/Vol] 4.1 10*3/uL 2.0-7.7 [facility] Neutrophils/100 WBC (Bld) 64.4 % 47-70 [facility] Potassium [Moles/Vol] 3.9 mmol/L 3.5-5.1 [facility] Sodium [Moles/Vol] 136 mmol/L 136-145 [facility] WBC (Bld) [#/Vol] 6.3 10*3/uL 4.4-11.0 [facility] Blood erythrocytes count (nu mber/volume)Ordered By: Frankie Galindo on 04-04-2023 RBC (Bld) [#/Vol] 4.82 10*6/uL 4.6-6.2 [facility] Blood hemoglobin measurement (mass/volume)Ordered By: Frankie Galindo on 04-04-2023 Hemoglobin (Bld) [Mass/Vol] 15.1 g/dL 13.0-16.5 [facility] Blood lymphocytes/100 leukoc ytesOrdered By: Frnakie Galindo on 04-04-2023 Lymphocytes/100 WBC (Bld) 23.6 % 19-41 [facility] Blood monocytes/100 leukocyt esOrdered By: Frankie Galindo on 04-04-2023 Monocytes/100 WBC (Bld) 6.3 % 0-10 [facility] Blood platelet mean volumeOr dered By: Frankie Galindo on 04-04-2023 Platelet mean volume (Bld) [Entitic vol] 9.3 fL 6.2-12.0 [facility] Determination of erythrocyte mean corpuscular volume (MCV)Ordered By: Frankie Galindo on 04-04-2023 MCV (RBC) [Entitic vol] 96.7 fL 80-94 [facility] Hematocrit Auto (Bld) [Volum e fraction]Ordered By: Frankie Galindo on 04-04-2023 Hematocrit (Bld) [Volume fraction] 46.6 % 40-54 [facility] Laboratory - Chemistry and C hemistry - challengeOrdered By: Frankie Galindo on 04-04-2023 CO2 [Moles/Vol] 29.0 mmol/L 21.0-32.0 [facility] Urea nitrogen/Creatinine [Mass ratio] 20.3 mg/mg 10-20 [facility] - Hematology and Cell countsOrdered By: Frankie Galindo on 04-04-2023 Erythrocyte distribution width (RBC) [Entitic vol] 48.9 fL 35.1-43.9 [facility] Erythrocyte distribution width (RBC) [Ratio] 13.6 % 11.6-14.6 [facility] Immature granulocytes/100 WBC (Bld) 1.300 % 0.0-0.9 [facility] Comment on above: IG% - Immature Granu locytes (promyelocytes, myelocytes and metamyelocytes) > 1% indicates that a LEFT SHIFT is Present. MCH (RBC) [Entitic mass] 31.3 pg 27.0-32.0 [facility] Nucleated RBC/100 WBC (Bld) [Ratio] 0 % 0-5 [facility] MCHC Auto (RBC) [Mass/Vol]Or dered By: Frankie Galindo on 04-04-2023 MCHC (RBC) [Mass/Vol] 32.4 g/dL 32-36 [facility] No Panel InformationOrdered By: Frankie Galindo on 04-04-2023 Estimated Creatinine Clearance Calc 45.80 ml/min [facility] Estimated GFR (MDRD) Amer 71 mL/min >60 [facility] Comment on above: GFR Calc Estimated GFR (MDRD) Non-Af Amer 58 mL/min >60 [facility] Comment on above: Non- GFR Calc 31.3 pg 27.0-32.0 [facility] 13.6 % 11.6-14.6 [facility] 48.9 fl 35.1-43.9 [facility] 1.300 % 0.0-0.9 [facility] 0 % 0-5 [facility] 58 mL/min >60 [facility] 71 mL/min >60 [facility] 45.80 ml/min [facility] 20.3 RATIO 10-20 [facility] 29.0 mmol/L 21.0-32.0 [facility] Platelets bldOrdered By: Sebastien Galindo on 04-04-2023 Platelets (Bld) [#/Vol] 379 10*3/uL 150-450 [facility] Serum or plasma calcium luis urement (mass/volume)Ordered By: Frankie Galindo on 04-04-2023 Calcium [Mass/Vol] 9.7 mg/dL 8.5-10.1 [facility] Serum or plasma creatinine m easurement (mass/volume)Ordered By: Frankie Galindo on 04-04-2023 Creatinine [Mass/Vol] 1.28 mg/dL 0.70-1.30 [facility] Comment on above: The validity of the calculated GFR & GFRAA in patients over 70 years has not been determined. Clinical correlation is essential. Serum or plasma urea nitroge n measurement (mass/volume)Ordered By: Frankie Galindo on 04-04-2023 Urea nitrogen [Mass/Vol] 26 mg/dL 7-18 [facility] Thin prep Papanicolaou smear with manual screeningOrdered By: Frankie Galindo on 04-04-2023 Thin prep Papanicolaou smear with manual screening 4 5-15 [facility] Basophil percentageOrdered B y: Frankie Galindo on 04-02-2023 Basophil percentage 2.6 mg/dL 2.5-4.9 [facility] - Chemistry and C hemistry - challengeOrdered By: Frankie Galindo on 04-02-2023 Magnesium [Mass/Vol] 2.0 mg/dL 1.6-2.6 [facility] No Panel InformationOrdered By: Frankie Galindo on 04-02-2023 2.0 mg/dL 1.6-2.6 [facility] Basophil percentageOrdered B y: Celia Toribio on 04-01-2023 Basophil percentage 6.5 g/dL 6.4-8.2 [facility] Basophil percentage 0.30 mg/dL 0.20-1.00 [facility] Bilirubin [Mass/Vol] 0.30 mg/dL 0.20-1.00 [facility] Comment on above: For patients on eltr ombopag therapy, use of Dimension [place] TBIL is not recommended. Protein [Mass/Vol] 6.5 g/dL 6.4-8.2 [facility] - Chemistry and C hemistry - challengeOrdered By: Celia Toribio on 04-01-2023 ALP [Catalytic activity/Vol] 57 U/L 45-117 [facility] ALT [Catalytic activity/Vol] 21 U/L [facility] Globulin (S) [Mass/Vol] 3.9 g/dL 2.2-4.2 [facility] No Panel InformationOrdered By: Celia Toribio on 04-01-2023 3.9 g/dL 2.2-4.2 [facility] 57 U/L 45- [facility] 21 U/L [facility] Serum or plasma albumin luis urement (mass/volume)Ordered By: Celia Toirbio on 04-01-2023 Albumin [Mass/Vol] 2.6 g/dL 3.2-5.0 [facility] Serum or plasma albumin/glob ulin mass ratioOrdered By: Celia Toribio on 04-01-2023 Albumin/Globulin [Mass ratio] 0.7 {ratio} 0.9-2.4 [facility] Thin prep Papanicolaou smear with manual screeningOrdered By: Celia Toribio on 04-01-2023 Thin prep Papanicolaou smear with manual screening 12 U/L 15-37 [facility] Absolute lymphocyte countOrd ered By: Huber Alvarado on 03-30-2023 Lymphocytes Auto (Unsp spec) [#/Vol] 0.93 10*3/uL 0.83-4.51 [facility] Bacteria identified Cx Nom ( U)Ordered By: Huber Alvarado on 03-30-2023 Culture, urine ESBL Escherichia coli [facility] Basophil percentageOrdered B y: Huber Alvarado on 03-30-2023 Basophil percentage 1.4 mmol/L 0.4-2.0 [facility] Lactate [Moles/Vol] 1.4 mmol/L 0.4-2.0 [facility] Basophil percentage 25-50 SEEN /hpf 0-5 [facility] Basophils/100 WBC (Bld) 0.7 % 0-1 [facility] Chloride [Moles/Vol] 99 mmol/L 98-107 [facility] Eosinophils/100 WBC (Bld) 0.0 % 0-5 [facility] Glucose [Mass/Vol] 104 mg/dL 74-106 [facility] Comment on above: Fasting Glucose resu lt from 100 to 125 mg/dL suggests IMPAIRED HOMEOSTASIS per A.D.A. criteria. Neutrophils (Bld) [#/Vol] 7.9 10*3/uL 2.0-7.7 [facility] Neutrophils/100 WBC (Bld) 79.2 % 47-70 [facility] Potassium [Moles/Vol] 4.0 mmol/L 3.5-5.1 [facility] Sodium [Moles/Vol] 134 mmol/L 136-145 [facility] WBC (Bld) [#/Vol] 10.0 10*3/uL 4.4-11.0 [facility] Bilirubin Test strip Ql (U)O rdered By: Huber Alvarado on 03-30-2023 Bilirubin Ql (U) Negative Negative [facility] Blood erythrocytes count (nu mber/volume)Ordered By: Huber Alvarado on 03-30-2023 RBC (Bld) [#/Vol] 4.81 10*6/uL 4.6-6.2 [facility] Blood hemoglobin measurement (mass/volume)Ordered By: Huber Alvarado on 03-30-2023 Hemoglobin (Bld) [Mass/Vol] 15.4 g/dL 13.0-16.5 [facility] Blood lymphocytes/100 leukoc ytesOrdered By: Huber Alvarado on 03-30-2023 Lymphocytes/100 WBC (Bld) 9.3 % 19-41 [facility] Blood monocytes/100 leukocyt esOrdered By: Huber Alvarado on 03-30-2023 Monocytes/100 WBC (Bld) 10.5 % 0-10 [facility] Blood platelet mean volumeOr dered By: Huber Alvarado on 03-30-2023 Platelet mean volume (Bld) [Entitic vol] 9.8 fL 6.2-12.0 [facility] Culture, urineOrdered By: Baldo Chan on 03-30-2023 Bacteria identified Cx Nom (U) ESBL Escherichia coli [facility] Bacteria identified Cx Nom (U) ESBL Escherichia coli [facility] Determination of erythrocyte mean corpuscular volume (MCV)Ordered By: Huber Alvarado on 03-30-2023 MCV (RBC) [Entitic vol] 97.5 fL 80-94 [facility] Hematocrit Auto (Bld) [Volum e fraction]Ordered By: Huber Alvarado on 03-30-2023 Hematocrit (Bld) [Volume fraction] 46.9 % 40-54 [facility] Ketones Test strip Ql (U)Ord ered By: Huber Alvarado on 03-30-2023 Ketones Ql (U) Negative Negative [facility] Laboratory - Chemistry and C hemistry - challengeOrdered By: Huber Alvarado on 03-30-2023 CO2 [Moles/Vol] 31.0 mmol/L 21.0-32.0 [facility] Urea nitrogen/Creatinine [Mass ratio] 16.0 mg/mg 10-20 [facility] Laboratory - Hematology and Cell countsOrdered By: Huber Alvarado on 03-30-2023 Erythrocyte distribution width (RBC) [Entitic vol] 50.3 fL 35.1-43.9 [facility] Erythrocyte distribution width (RBC) [Ratio] 13.9 % 11.6-14.6 [facility] Immature granulocytes/100 WBC (Bld) 0.300 % 0.0-0.9 [facility] Comment on above: IG% - Immature Granu locytes (promyelocytes, myelocytes and metamyelocytes) > 1% indicates that a LEFT SHIFT is Present. MCH (RBC) [Entitic mass] 32.0 pg 27.0-32.0 [facility] Nucleated RBC/100 WBC (Bld) [Ratio] 0 % 0-5 [facility] Laboratory - Microbiology an d Antimicrobial susceptibilityOrdered By: Huber Alvarado on 03-30-2023 Bacteria identified Cx Nom (Bld) No growth in 5 days. [facility] MCHC Auto (RBC) [Mass/Vol]Or dered By: Huber Alvarado on 03-30-2023 MCHC (RBC) [Mass/Vol] 32.8 g/dL 32-36 [facility] Mucus LM Ql (Urine sed)Order ed By: Huber Alvarado on 03-30-2023 Mucus Ql (Urine sed) 0 SEEN /hpf [facility] Nitrite Test strip Ql (U)Ord ered By: Huber Alvarado on 03-30-2023 Nitrite Ql (U) Negative Negative [facility] No Panel InformationOrdered By: Huber Alvarado on 03-30-2023 No growth in 5 days. [facility] Estimated GFR (MDRD) Amer 77 mL/min >60 [facility] Comment on above: GFR Calc Estimated GFR (MDRD) Non-Af Amer 64 mL/min >60 [facility] Comment on above: Non- GFR Calc Platelets bldOrdered By: Beck Alvarado on 03-30-2023 Platelets (Bld) [#/Vol] 276 10*3/uL 150-450 [facility] Protein Test strip Ql (U)Ord ered By: Huber Alvarado on 03-30-2023 Protein Ql (U) 100 mg/dl Negative [facility] Serum or plasma calcium luis urement (mass/volume)Ordered By: Huber Alvarado on 03-30-2023 Calcium [Mass/Vol] 9.8 mg/dL 8.5-10.1 [facility] Serum or plasma creatinine m easurement (mass/volume)Ordered By: Huber Alvarado on 03-30-2023 Creatinine [Mass/Vol] 1.19 mg/dL 0.70-1.30 [facility] Comment on above: The validity of the calculated GFR & GFRAA in patients over 70 years has not been determined. Clinical correlation is essential. Serum or plasma urea nitroge n measurement (mass/volume)Ordered By: Huber Alvarado on 03-30-2023 Urea nitrogen [Mass/Vol] 19 mg/dL 7-18 [facility] Squamous epithelial cells de tection in urine sediment by light microscopyOrdered By: Huebr Alvarado on 03-30-2023 Epithelial cells.squamous LM Ql (Urine sed) 0-5 SEEN /hpf 0-5 [facility] Thin prep Papanicolaou smear with manual screeningOrdered By: Huber Alvarado on 03-30-2023 Thin prep Papanicolaou smear with manual screening 4 5-15 [facility] Urine blood detectionOrdered By: Huber Alvarado on 03-30-2023 RBC Ql (U) 50 /ul Negative [facility] RBC Ql (U) 0 SEEN /hpf 0-5 [facility] Urine clarityOrdered By: Beck Alvarado on 03-30-2023 Clarity (U) Sl. Cloudy Clear [facility] Urine color determinationOrd ered By: Huber Alvarado on 03-30-2023 Color (U) Yellow Yellow [facility] Urine glucose detectionOrder ed By: Huber Alvarado on 03-30-2023 Glucose Ql (U) Normal mg/dl Normal [facility] Urine leukocyte esterase det ection by dipstickOrdered By: Huber Alvarado on 03-30-2023 Leukocyte esterase Test strip Ql (U) 500 /ul Negative [facility] Urine pHOrdered By: Huber billingsley on 03-30-2023 pH (U) 6.0 [pH] 5.0 - 8.0 [facility] Urine sediment bacteria coun t by microscopy (number/high power field)Ordered By: Huber Alvarado on 03-30-2023 Bacteria LM.HPF (Urine sed) [#/Area] 3 /[HPF] None Seen [facility] Urine specific gravity measu rementOrdered By: Huber Alvarado on 03-30-2023 Specific gravity (U) [Rel density] 1.020 1.002-1.030 [facility] Urobilinogen Auto test strip Ql (U)Ordered By: Huber Alvarado on 03-30-2023 Urobilinogen Ql (U) Normal mg/dl Normal [facility] INR in Blood by Coagulation assayOrdered By: Jaden Jauregui on 02-18-2023 INR Coag (Bld) [Relative time] 0.9 {INR} [facility] Laboratory - CoagulationOrde red By: Jaden Jauregui on 02-18-2023 PT Coag (PPP) [Time] 12.4 s 11.7-14.[address] [facility] [address] ABD/PELVIS W/ IV CONTRAST ONLYon [...] 10/22/2022 10:33:36 PM Ordering Provider: PRIYANKA Betts [facility] [place] .Auto Diffon 10-22-2022 Basophil, Absolute 0.1 10 3/mcL Normal 0.0-0.2 [facility] ([place] Comment on above: Performed By: #### A DIFF, LIP, MDW, CMP, GFR, ANEU, CBC #### [address] [address] Basophils/100 WBC (Bld) 0.8 % Normal 0.0-2.5 [facility] ([place]) Comment on above: Performed By: #### A DIFF, LIP, MDW, CMP, GFR, ANEU, CBC #### [address] [place], [place] [address] Eosinophil, Absolute 0.0 10 3/mcL Normal 0.0-0.4 [facility] ([place] Comment on above: Performed By: #### A DIFF, LIP, MDW, CMP, GFR, ANEU, CBC #### [address] [address] Eosinophils/100 WBC (Bld) 0.3 % Normal 0.0-7.0 [facility] ([place] Comment on above: Performed By: #### A DIFF, LIP, MDW, CMP, GFR, ANEU, CBC #### [address] [address] Lymphocyte, Absolute 0.9 10 3/mcL Normal 0.8-3.9 [facility] ([place] Comment on above: Performed By: #### A DIFF, LIP, MDW, CMP, GFR, ANEU, CBC #### [address] [address] Lymphocytes/100 WBC (Bld) 8.1 % Low 10.0-50.0 [facility] ([place] Comment on above: Performed By: #### A DIFF, LIP, MDW, CMP, GFR, ANEU, CBC #### [address] [address] Monocyte, Absolute 0.7 10 3/mcL Normal 0.2-1.0 [facility] ([place] Comment on above: Performed By: #### A DIFF, LIP, MDW, CMP, GFR, ANEU, CBC #### [address] [address] Monocytes/100 WBC (Bld) 6.8 % Normal 1.7-13.0 [facility] ([place]) Comment on above: Performed By: #### A DIFF, LIP, MDW, CMP, GFR, ANEU, CBC #### [address] [address] Neutrophils/100 WBC (Bld) 84.0 % High 37.0-80.0 [facility] ([place] Comment on above: Performed By: #### A DIFF, LIP, MDW, CMP, GFR, ANEU, CBC #### [address] [address] .GFRon 10-22-2022 GFR Non- 58 ml/min/1.73sqm Normal [facility] ([place] Comment on above: Result Comment: GFR Population [...] LIP, MDW, CMP, GFR, ANEU, CBC #### [address] [address] GFR 71 ml/min/1.73sqm Normal [facility] ([place] Comment on above: Result Comment: GFR Population [...] LIP, MDW, CMP, GFR, ANEU, CBC #### [address] [address] .MDWon 10-22-2022 Monocyte Distribution Width 24.33 High 0.00-20.00 [facility] ([place] Comment on above: Result Comment: For adults in ED, MDW>20.0 may be associated with a higher risk of sepsis during the first 12hrs of hospital admission Performed By: #### A DIFF, LIP, MDW, CMP, GFR, ANEU, CBC #### [place] [address] .NEUABSon 10-22-2022 Neutrophil, Absolute 8.9 10 3/mcL High 2.9-6.2 [facility] ([place] Comment on above: Performed By: #### A DIFF, LIP, MDW, CMP, GFR, ANEU, CBC #### [address] [address] CBCon 10-22-2022 Erythrocyte distribution width (RBC) [Ratio] 14.0 % Normal 11.5-14.5 [facility] ([place] Comment on above: Performed By: #### A DIFF, LIP, MDW, CMP, GFR, ANEU, CBC #### [address] [place] [address] Hematocrit (Bld) [Volume fraction] 38.9 % Low 42.0-52.0 [facility] ([place] Comment on above: Performed By: #### A DIFF, LIP, MDW, CMP, GFR, ANEU, CBC #### [place] [address] Hgb 13.5 G/dL Low 14.0-18.0 [facility] ([place] Comment on above: Performed By: #### A DIFF, LIP, MDW, CMP, GFR, ANEU, CBC #### [place] [address] MCH (RBC) [Entitic mass] 33.0 pg High 27.0-31.2 [facility] ([place] Comment on above: Performed By: #### A DIFF, LIP, MDW, CMP, GFR, ANEU, CBC #### [place] [address] MCHC 34.8 G/dL Normal 31.8-35.4 [facility] ([place] Comment on above: Performed By: #### A DIFF, LIP, MDW, CMP, GFR, ANEU, CBC #### [address] [address] MCV (RBC) [Entitic vol] 95.0 fL High 80.0-94.0 [facility] ([place] Comment on above: Performed By: #### A DIFF, LIP, MDW, CMP, GFR, ANEU, CBC #### [address] [address] Platelet 344 10 3/mcL Normal 130-400 [facility] ([place] Comment on above: Performed By: #### A DIFF, LIP, MDW, CMP, GFR, ANEU, CBC #### [address] [address] Platelet mean volume (Bld) [Entitic vol] 7.1 fL Low 7.4-10.4 [facility] ([place] Comment on above: Performed By: #### A DIFF, LIP, MDW, CMP, GFR, ANEU, CBC #### [address] [address] RBC 4.10 10 6/mcL Normal 4.04-6.13 [facility] ([place] Comment on above: Performed By: #### A DIFF, LIP, MDW, CMP, GFR, ANEU, CBC #### [address] [address] WBC 10.6 10 3/mcL Normal 4.6-10.8 [facility] ([place] Comment on above: Performed By: #### A DIFF, LIP, MDW, CMP, GFR, ANEU, CBC #### [address] [address] CMPon 10-22-2022 Albumin Level 2.9 G/dL Low 3.4-4.8 [facility] ([place] Comment on above: Performed By: #### A DIFF, LIP, MDW, CMP, GFR, ANEU, CBC #### [address] [address] Albumin/Globulin [Mass ratio] 0.8 {ratio} Low 1.1-2.5 [facility] ([place] Comment on above: Performed By: #### A DIFF, LIP, MDW, CMP, GFR, ANEU, CBC #### [address] [address] ALP [Catalytic activity/Vol] 98 U/L Normal 40-135 [facility] ([place] Comment on above: Performed By: #### A DIFF, LIP, MDW, CMP, GFR, ANEU, CBC #### [address] [address] ALT [Catalytic activity/Vol] 46 U/L Normal 16-63 [facility] ([place] Comment on above: Performed By: #### A DIFF, LIP, MDW, CMP, GFR, ANEU, CBC #### [address] [address] AST [Catalytic activity/Vol] 29 U/L Normal 10-40 [facility] ([place] Comment on above: Performed By: #### A DIFF, LIP, MDW, CMP, GFR, ANEU, CBC #### [address] [address] Bili Total 0.3 mg/dL Normal 0.2-1.0 [facility] ([place] Comment on above: Result Comment: Use of this assay is not recommended for patients undergoing treatment with eltrombopag due to the potential for falsely elevated results. Performed By: #### A DIFF, LIP, MDW, CMP, GFR, ANEU, CBC #### [address] [address] BUN/Creatinine Ratio 17 ratio Normal 7-27 [facility] ([place] Comment on above: Performed By: #### A DIFF, LIP, MDW, CMP, GFR, ANEU, CBC #### [address] [address] Calcium [Mass/Vol] 9.2 mg/dL Normal 8.4-10.2 [facility] ([place] Comment on above: Performed By: #### A DIFF, LIP, MDW, CMP, GFR, ANEU, CBC #### [address] [address] Chloride [Moles/Vol] 96 mmol/L Low 98-107 [facility] ([place] Comment on above: Performed By: #### A DIFF, LIP, MDW, CMP, GFR, ANEU, CBC #### [address] [address] CO2 [Moles/Vol] 33 mmol/L High 23-31 [facility] ([place] Comment on above: Performed By: #### A DIFF, LIP, MDW, CMP, GFR, ANEU, CBC #### [address] [address] Creatinine [Mass/Vol] 1.22 mg/dL Normal 0.70-1.30 [facility] ([place] Comment on above: Performed By: #### A DIFF, LIP, MDW, CMP, GFR, ANEU, CBC #### [address] [address] Electrolyte Balance 5.0 mEq/L Normal 4.0-15.0 [facility] ([place] Comment on above: Performed By: #### A DIFF, LIP, MDW, CMP, GFR, ANEU, CBC #### [address] [address] Globulin 3.5 G/dL Normal [facility] ([place] Comment on above: Performed By: #### A DIFF, LIP, MDW, CMP, GFR, ANEU, CBC #### [address] [address] Glucose [Mass/Vol] 111 mg/dL High 83-110 [facility] ([place] Comment on above: Performed By: #### A DIFF, LIP, MDW, CMP, GFR, ANEU, CBC #### [address] [address] Potassium [Moles/Vol] 4.3 mmol/L Normal 3.5-5.1 [facility] ([place] Comment on above: Performed By: #### A DIFF, LIP, MDW, CMP, GFR, ANEU, CBC #### [address] [address] Sodium [Moles/Vol] 134 mmol/L Low 136-145 [facility] ([place] Comment on above: Performed By: #### A DIFF, LIP, MDW, CMP, GFR, ANEU, CBC #### [address] [place], [place] [address] Total Protein 6.4 G/dL Normal 6.4-8.2 [facility] ([place] Comment on above: Performed By: #### A DIFF, LIP, MDW, CMP, GFR, ANEU, CBC #### [address] [place], [place] [address] Urea nitrogen [Mass/Vol] 21 mg/dL High 7-18 [facility] ([place] Comment on above: Performed By: #### A DIFF, LIP, MDW, CMP, GFR, ANEU, CBC #### [address] [place], [place] [address] LABORATORYOrdered By: SYSTEM SYSTEM on 10-22-2022 Albumin [...] 10-22-2022 Lipase Level 32 U/L Normal 16-77 [facility] ([place] Comment on above: Performed By: #### A DIFF, LIP, MDW, CMP, GFR, ANEU, CBC #### [address] [address] Absolute lymphocyte countOrd ered By: Dr. Jauregui on 10-21-2022 Lymphocytes Auto (Unsp spec) [#/Vol] 0.85 10*3/uL 0.83-4.51 [facility] Basophil percentageOrdered B y: Dr. Jauregui on 10-21-2022 Basophil percentage 25-50 SEEN /hpf 0-5 [facility] Basophils/100 WBC (Bld) 0.6 % 0-1 [facility] Bilirubin [Mass/Vol] 0.30 mg/dL 0.20-1.00 [facility] Comment on above: For patients on eltr ombopag therapy, use of Dimension [place] TBIL is not recommended. Chloride [Moles/Vol] 99 mmol/L 98-107 [facility] Eosinophils/100 WBC (Bld) 0.4 % 0-5 [facility] Glucose [Mass/Vol] 104 mg/dL 74-106 [facility] Comment on above: Fasting Glucose resu lt from 100 to 125 mg/dL suggests IMPAIRED HOMEOSTASIS per A.D.A. criteria. Neutrophils (Bld) [#/Vol] 8.8 10*3/uL 2.0-7.7 [facility] Neutrophils/100 WBC (Bld) 84.2 % 47-70 [facility] Potassium [Moles/Vol] 3.6 mmol/L 3.5-5.1 [facility] Protein [Mass/Vol] 7.2 g/dL 6.4-8.2 [facility] Sodium [Moles/Vol] 135 mmol/L 136-145 [facility] WBC (Bld) [#/Vol] 10.4 10*3/uL 4.4-11.0 [facility] Bilirubin Test strip Ql (U)O rdered By: Dr. Jauregui on 10-21-2022 Bilirubin Ql (U) Negative Negative [facility] Blood erythrocytes count (nu mber/volume)Ordered By: Dr. Jauregui on 10-21-2022 RBC (Bld) [#/Vol] 4.51 10*6/uL 4.6-6.2 [facility] Blood hemoglobin measurement (mass/volume)Ordered By: Dr. Jauregui on 10-21-2022 Hemoglobin (Bld) [Mass/Vol] 14.4 g/dL 13.0-16.5 [facility] Blood lymphocytes/100 leukoc ytesOrdered By: Dr. Jauregui on 10-21-2022 Lymphocytes/100 WBC (Bld) 8.2 % 19-41 [facility] Blood monocytes/100 leukocyt esOrdered By: Dr. Jauregui on 10-21-2022 Monocytes/100 WBC (Bld) 5.4 % 0-10 [facility] Blood platelet mean volumeOr dered By: Dr. Jauregui on 10-21-2022 Platelet mean volume (Bld) [Entitic vol] 8.9 fL 6.2-12.0 [facility] Culture, urineOrdered By: Joseph Jauregui on 10-21-2022 Bacteria identified Cx Nom (U) Presumptive E. coli [facility] Determination of erythrocyte mean corpuscular volume (MCV)Ordered By: Dr. Jauregui on 10-21-2022 MCV (RBC) [Entitic vol] 95.6 fL 80-94 [facility] Hematocrit Auto (Bld) [Volum e fraction]Ordered By: Dr. Jauregui on 10-21-2022 Hematocrit (Bld) [Volume fraction] 43.1 % 40-54 [facility] Ketones Test strip Ql (U)Ord ered By: Dr. Jauregui on 10-21-2022 Ketones Ql (U) Negative Negative [facility] Laboratory - Chemistry and C hemistry - challengeOrdered By: Dr. Jauregui on 10-21-2022 ALP [Catalytic activity/Vol] 84 U/L 45-117 [facility] ALT [Catalytic activity/Vol] 41 U/L 16-61 [facility] CO2 [Moles/Vol] 28.0 mmol/L 21.0-32.0 [facility] Globulin (S) [Mass/Vol] 4.2 g/dL 2.2-4.2 [facility] Lipase [Catalytic activity/Vol] 42 U/L 13-75 [facility] Comment on above: Please note:LIPASE r evised reference range effective 22. New Lipase methodology. Expected to produce lower values than the previous assay method. NEW Reference Range: 13 - 75 U/L Urea nitrogen/Creatinine [Mass ratio] 16.3 mg/mg 10-20 [facility] Laboratory - Hematology and Cell countsOrdered By: Dr. Jauregui on 10-21-2022 Erythrocyte distribution width (RBC) [Entitic vol] 45.7 fL 35.1-43.9 [facility] Erythrocyte distribution width (RBC) [Ratio] 13.0 % 11.6-14.6 [facility] Immature granulocytes/100 WBC (Bld) 1.200 % 0.0-0.9 [facility] Comment on above: IG% - Immature Granu locytes (promyelocytes, myelocytes and metamyelocytes) > 1% indicates that a LEFT SHIFT is Present. MCH (RBC) [Entitic mass] 31.9 pg 27.0-32.0 [facility] Nucleated RBC/100 WBC (Bld) [Ratio] 0 % 0-5 [facility] MCHC Auto (RBC) [Mass/Vol]Or dered By: Dr. Jauregui on 10-21-2022 MCHC (RBC) [Mass/Vol] 33.4 g/dL 32-36 [facility] Mucus LM Ql (Urine sed)Order ed By: Dr. Jauregui on 10-21-2022 Mucus Ql (Urine sed) 0 SEEN /hpf [facility] Nitrite Test strip Ql (U)Ord ered By: Dr. Jauregui on 10-21-2022 Nitrite Ql (U) Negative Negative [facility] [facility] No Panel InformationOrdered By: Dr. Jauregui on 10-21-2022 Estimated GFR (MDRD) Amer 90 mL/min >60 [facility] Comment on above: GFR Calc Estimated GFR (MDRD) Non-Af Amer 74 mL/min >60 [facility] Comment on above: Non- GFR Calc Platelets bldOrdered By: Dr. Jauregui on 10-21-2022 Platelets (Bld) [#/Vol] 339 10*3/uL 150-450 [facility] Protein Test strip Ql (U)Ord ered By: Dr. Jauregui on 10-21-2022 Protein Ql (U) 100 mg/dl Negative [facility] Serum or plasma albumin luis urement (mass/volume)Ordered By: Dr. Jauregui on 10-21-2022 Albumin [Mass/Vol] 3.0 g/dL 3.2-5.0 [facility] Serum or plasma albumin/glob ulin mass ratioOrdered By: Dr. Jauregui on 10-21-2022 Albumin/Globulin [Mass ratio] 0.7 {ratio} 0.9-2.4 [facility] Serum or plasma calcium luis urement (mass/volume)Ordered By: Dr. Jauregui on 10-21-2022 Calcium [Mass/Vol] 9.8 mg/dL 8.5-10.1 [facility] Serum or plasma creatinine m easurement (mass/volume)Ordered By: Dr. Jauregui on 10-21-2022 Creatinine [Mass/Vol] 1.04 mg/dL 0.70-1.30 [facility] Comment on above: The validity of the calculated GFR & GFRAA in patients over 70 years has not been determined. Clinical correlation is essential. Serum or plasma urea nitroge n measurement (mass/volume)Ordered By: Dr. Jauregui on 10-21-2022 Urea nitrogen [Mass/Vol] 17 mg/dL 7-18 [facility] Squamous epithelial cells de tection in urine sediment by light microscopyOrdered By: Dr. Jauregui on 10-21-2022 Epithelial cells.squamous LM Ql (Urine sed) 0-5 SEEN /hpf 0-5 [facility] Thin prep Papanicolaou smear with manual screeningOrdered By: Dr. Jauregui on 10-21-2022 Thin prep Papanicolaou smear with manual screening 20 U/L 15-37 [facility] Thin prep Papanicolaou smear with manual screening 8 5-15 [facility] Urine blood detectionOrdered By: Dr. Jauregui on 10-21-2022 RBC Ql (U) 50 /ul Negative [facility] RBC Ql (U) 0 SEEN /hpf 0-5 [facility] Urine clarityOrdered By: Dr. Jauregui on 10-21-2022 Clarity (U) Sl. Cloudy Clear [facility] Urine color determinationOrd ered By: Dr. Jauregui on 10-21-2022 Color (U) Yellow Yellow [facility] Urine glucose detectionOrder ed By: Dr. Jauregui on 10-21-2022 Glucose Ql (U) Normal mg/dl Normal [facility] Urine leukocyte esterase det ection by dipstickOrdered By: Dr. Jauregui on 05-05-2023 Leukocyte esterase Test strip Ql (U) 500 /ul Negative [facility] Urine pHOrdered By: Dr. Babs mckeon on 10-21-2022 pH (U) 6.0 [pH] 5.0 - 8.0 [facility] Urine sediment bacteria coun t by microscopy (number/high power field)Ordered By: Dr. Jauregui on 10-21-2022 Bacteria LM.HPF (Urine sed) [#/Area] 2 /[HPF] None Seen [facility] Urine specific gravity measu rementOrdered By: Dr. Jauregui on 10-21-2022 Specific gravity (U) [Rel density] 1.010 1.002-1.030 [facility] Urobilinogen Auto test strip Ql (U)Ordered By: Dr. Jauregui on 10-21-2022 Urobilinogen Ql (U) Normal mg/dl Normal [facility] No Panel InformationOrdered By: Андрей Cooley on 08-11-2022 Miscellaneous Test See comment [facility] Comment on above: TEST RESULT LIMITSCa rbamazepine(Tegretol), S 7.1 ug/mL 4.0-12.0 In conjunction with other antiepileptic drugs Therapeutic 4.0 - 8.0 Toxicity 9.0 - 12.0 Carbamazepine alone Therapeutic 8.0 - 12.0 Detection Limit = 2.0 <2.0 indicated None Detected Verified by repeat analysis TESTING PERFORMED AT [facility]. ORIGINAL REPORT ON FILE IN LAB CONTAINS ADDITIONAL TEST SITE INFORMATION. No Panel InformationOrdered By: Андрей Cooley on 07-12-2022 Miscellaneous Test See comment [facility] Comment on above: TEST RESULT LIMITSCarbamazepine(Tegretol),SCarbamazepine(Tegretol), S 6.3 ug/mL 4.0-12.0 In conjunction with other antiepileptic drugs Therapeutic 4.0 - 8.0 Toxicity 9.0 - 12.0 Carbamazepine alone Therapeutic 8.0 - 12.0 Detection Limit = 2.0 <2.0 indicated None Detected ____ TESTING PERFORMED AT [facility]. ORIGINAL REPORT ON FILE IN LAB CONTAINS ADDITIONAL TEST SITE INFORMATION. Basophil percentageOrdered B y: Андрей Cooley on 06-14-2022 Bilirubin [Mass/Vol] 0.20 mg/dL 0.20-1.00 [facility] Comment on above: For patients on eltr ombopag therapy, use of Dimension [place] TBIL is not recommended. Chloride [Moles/Vol] 104 mmol/L 98-107 [facility] Cholesterol [Mass/Vol] 139 mg/dL <200 [place] Comment on above: <200 mg/dL Desirable 200-240 mg/dL Borderline >240 mg/dL High Risk Glucose [Mass/Vol] 76 mg/dL 74-106 [facility] Potassium [Moles/Vol] 3.9 mmol/L 3.5-5.1 [facility] Protein [Mass/Vol] 6.4 g/dL 6.4-8.2 [facility] Sodium [Moles/Vol] 139 mmol/L 136-145 [facility] Triglyceride [Mass/Vol] 111 mg/dL <199 [facility] Comment on above: The drugs N-Acetylcy steine and Metamizole may falsely depress this assay.Serum Triglycerides Reference Interval Normal <150 mg/dL Borderline high 150 - 199 mg/dL High 200 - 499 mg/dL Very High > or = 500 mg/dL WBC (Bld) [#/Vol] 5.5 10*3/uL 4.4-11.0 [facility] Blood erythrocytes count (nu mber/volume)Ordered By: Андрей Cooley on 06-14-2022 RBC (Bld) [#/Vol] 4.57 10*6/uL 4.6-6.2 [facility] Blood hemoglobin measurement (mass/volume)Ordered By: Андрей Cooley on 06-14-2022 Hemoglobin (Bld) [Mass/Vol] 15.0 g/dL 13.0-16.5 [facility] Blood platelet mean volumeOr dered By: Андрей Cooley on 06-14-2022 Platelet mean volume (Bld) [Entitic vol] 10.0 fL 6.2-12.0 [facility] Determination of erythrocyte mean corpuscular volume (MCV)Ordered By: Андрей Cooley on 06-14-2022 MCV (RBC) [Entitic vol] 100.4 fL 80-94 [facility] Hematocrit Auto (Bld) [Volum e fraction]Ordered By: Андрей Cooley on 06-14-2022 Hematocrit (Bld) [Volume fraction] 45.9 % 40-54 [facility] Laboratory - Chemistry and C hemistry - challengeOrdered By: Андрей Cooley on 06-14-2022 ALP [Catalytic activity/Vol] 68 U/L 45-117 [facility] ALT [Catalytic activity/Vol] 31 U/L 16-61 [facility] CO2 [Moles/Vol] 31.0 mmol/L 21.0-32.0 [facility] Globulin (S) [Mass/Vol] 3.0 g/dL 2.2-4.2 [facility] Urea nitrogen/Creatinine [Mass ratio] 22.5 mg/mg 10-20 [facility] Laboratory - Hematology and Cell countsOrdered By: Андрей Cooley on 06-14-2022 Erythrocyte distribution width (RBC) [Entitic vol] 51.8 fL 35.1-43.9 [facility] Erythrocyte distribution width (RBC) [Ratio] 14.2 % 11.6-14.6 [facility] MCH (RBC) [Entitic mass] 32.8 pg 27.0-32.0 [facility] MCHC Auto (RBC) [Mass/Vol]Or dered By: Андрей Cooley on 06-14-2022 MCHC (RBC) [Mass/Vol] 32.7 g/dL 32-36 [facility] No Panel InformationOrdered By: Андрей Cooley on 06-14-2022 Estimated GFR (MDRD) Amer 108 mL/min >60 [facility] Comment on above: GFR Calc Estimated GFR (MDRD) Non-Af Amer 89 mL/min >60 [facility] Comment on above: Non- GFR Calc Vitamin D 25-Hydroxy 40.8 ng/mL [facility] Comment on above: Vitamin D 25(OH) Sta tus Range Deficiency <20 ng/mL (50nmol/L) Insufficiency 20 - 30 ng/mL (50 - 75 nmol/L) Sufficiency 30 - 100 ng/mL (75 - 250 nmol/L) Toxicity >100 ng/mL (>250 nmol/L) Platelets bldOrdered By: [place]alia Cooley on 06-14-2022 Platelets (Bld) [#/Vol] 239 10*3/uL 150-450 [facility] Serum or plasma albumin luis urement (mass/volume)Ordered By: Андрей Cooley on 06-14-2022 Albumin [Mass/Vol] 3.4 g/dL 3.2-5.0 [facility] Serum or plasma albumin/glob ulin mass ratioOrdered By: Андрей Cooley on 06-14-2022 Albumin/Globulin [Mass ratio] 1.1 {ratio} 0.9-2.4 [facility] Serum or plasma calcium luis urement (mass/volume)Ordered By: Андрей Cooley on 06-14-2022 Calcium [Mass/Vol] 9.1 mg/dL 8.5-10.1 [facility] Serum or plasma cholesterol in HDL measurement (mass/volume)Ordered By: Андрей Cooley on 06-14-2022 Cholesterol in HDL [Mass/Vol] 65 mg/dL >40 [facility] Comment on above: The drugs N-Acetylcy steine and Metamizole may falsely depress this assay. Reference Range HDL <40 mg/dL Low HDL Cholesterol HDL >or= 60 mg/dL High HDL Cholesterol Serum or plasma cholesterol in VLDL measurement (mass/volume)Ordered By: Андрей Cooley on 06-14-2022 Cholesterol in VLDL [Mass/Vol] 22 mg/dL 5-40 [facility] Serum or plasma creatinine m easurement (mass/volume)Ordered By: Андрей Cooley on 06-14-2022 Creatinine [Mass/Vol] 0.89 mg/dL 0.70-1.30 [facility] Comment on above: The validity of the calculated GFR & GFRAA in patients over 70 years has not been determined. Clinical correlation is essential. Serum or plasma low density lipoprotein (LDL) cholesterol measurement (mass/volume)Ordered By: Андрей Cooley on 06-14-2022 Cholesterol in LDL [Mass/Vol] 52 mg/dL 0-130 [facility] Serum or plasma urea nitroge n measurement (mass/volume)Ordered By: Андрей Cooley on 06-14-2022 Urea nitrogen [Mass/Vol] 20 mg/dL 7-18 [facility] Thin prep Papanicolaou smear with manual screeningOrdered By: Андрей Cooley on 06-14-2022 Thin prep Papanicolaou smear with manual screening 13 U/L 15-37 [facility] Thin prep Papanicolaou smear with manual screening 4 5-15 [facility] No Panel InformationOrdered By: Андрей Cooley on 05-13-2022 Miscellaneous Test See comment [facility] Comment on above: TEST RESULT LIMITSCa rbamazepine(Tegretol), S 6.2 ug/mL 4.0-12.0 In conjunction with other antiepileptic drugs Therapeutic 4.0 - 8.0 Toxicity 9.0 - 12.0 Carbamazepine alone Therapeutic 8.0 - 12.0 Detection Limit = 2.0 <2.0 indicated None Detected ____ TESTING PERFORMED AT [facility]. ORIGINAL REPORT ON FILE IN LAB CONTAINS ADDITIONAL TEST SITE INFORMATION. Absolute lymphocyte counton 03-15-2022 Lymphocytes Auto (Unsp spec) [#/Vol] 1.09 10*3/uL 0.83-4.51 [facility] Work Phone: Basophil percentageon 2021 Basophils/100 WBC (Bld) 0.7 % 0-1 [facility] Work Phone: Bilirubin [Mass/Vol] 0.30 mg/dL 0.20-1.00 [facility] Work Phone: Comment on above: For patients on eltr ombopag therapy, use of Dimension [place] TBIL is not recommended. Chloride [Moles/Vol] 96 mmol/L 98-107 [facility] Work Phone: Cholesterol [Mass/Vol] 137 mg/dL <200 [place] Work Phone: Comment on above: <200 mg/dL Desirable 200-240 mg/dL Borderline >240 mg/dL High Risk Eosinophils/100 WBC (Bld) 1.0 % 0-5 [facility] Work Phone: Glucose [Mass/Vol] 84 mg/dL 74-106 [facility] Work Phone: Neutrophils (Bld) [#/Vol] 5.3 10*3/uL 2.0-7.7 [facility] Work Phone: Neutrophils/100 WBC (Bld) 74.4 % 47-70 [facility] Work Phone: Potassium [Moles/Vol] 3.5 mmol/L 3.5-5.1 [facility] Work Phone: Comment on above: Slight Hemolysis, Re sult may be falsely increased. Protein [Mass/Vol] 7.2 g/dL 6.4-8.2 [facility] Work Phone: Sodium [Moles/Vol] 133 mmol/L 136-145 [facility] Work Phone: Triglyceride [Mass/Vol] 121 mg/dL <199 [facility] Work Phone: Comment on above: The drugs N-Acetylcy steine and Metamizole may falsely depress this assay.Serum Triglycerides Reference Interval Normal <150 mg/dL Borderline high 150 - 199 mg/dL High 200 - 499 mg/dL Very High > or = 500 mg/dL WBC (Bld) [#/Vol] 7.2 10*3/uL 4.4-11.0 [facility] Work Phone: Blood erythrocytes count (nu mber/volume)on 03-15-2022 RBC (Bld) [#/Vol] 5.31 10*6/uL 4.6-6.2 [facility] Work Phone: Blood hemoglobin measurement (mass/volume)on 03-15-2022 Hemoglobin (Bld) [Mass/Vol] 17.0 g/dL 13.0-16.5 [facility] Work Phone: Blood lymphocytes/100 leukoc yteson 03-15-2022 Lymphocytes/100 WBC (Bld) 15.2 % 19-41 [facility] Work Phone: [phone] Blood monocytes/100 leukocyt eson 03-15-2022 Monocytes/100 WBC (Bld) 7.9 % 0-10 [facility] Work Phone: Blood platelet mean volumeon 03-15-2022 Platelet mean volume (Bld) [Entitic vol] 9.8 fL 6.2-12.0 [facility] Work Phone: Determination of erythrocyte mean corpuscular volume (MCV)on 03-15-2022 MCV (RBC) [Entitic vol] 93.2 fL 80-94 [facility] Work Phone: Hematocrit Auto (Bld) [Volum e fraction]on 03-15-2022 Hematocrit (Bld) [Volume fraction] 49.5 % 40-54 [facility] Work Phone: INR in Blood by Coagulation assayon 03-15-2022 INR Coag (Bld) [Relative time] 0.9 {INR} [facility] Work Phone: Laboratory - Chemistry and C hemistry - challengeon 03-15-2022 ALP [Catalytic activity/Vol] 71 U/L 45-117 [facility] Work Phone: [phone] ALT [Catalytic activity/Vol] 41 U/L 16-61 [facility] Work Phone: [phone] CO2 [Moles/Vol] 28.0 mmol/L 21.0-32.0 [facility] Work Phone: [phone] Globulin (S) [Mass/Vol] 4.1 g/dL 2.2-4.2 [facility] Work Phone: [phone] Urea nitrogen/Creatinine [Mass ratio] 21.2 mg/mg 10-20 [facility] Work Phone: [phone] Laboratory - Coagulationon 0 03-15-2022 PT Coag (PPP) [Time] 11.8 s 11.7-14.9 [facility] Work Phone: [phone] Laboratory - Hematology and Cell countson 03-15-2022 Erythrocyte distribution width (RBC) [Entitic vol] 44.0 fL 35.1-43.9 [facility] Work Phone: [phone] Erythrocyte distribution width (RBC) [Ratio] 12.7 % 11.6-14.6 [facility] Work Phone: [phone] Immature granulocytes/100 WBC (Bld) 0.800 % 0.0-0.9 [facility] Work Phone: [phone] Comment on above: IG% - Immature Granu locytes (promyelocytes, myelocytes and metamyelocytes) > 1% indicates that a LEFT SHIFT is Present. MCH (RBC) [Entitic mass] 32.0 pg 27.0-32.0 [facility] Work Phone: [phone] Nucleated RBC/100 WBC (Bld) [Ratio] 0 % 0-5 [facility] Work Phone: [phone] MCHC Auto (RBC) [Mass/Vol]on 03-15-2022 MCHC (RBC) [Mass/Vol] 34.3 g/dL 32-36 [facility] Work Phone: [phone] No Panel Informationon 03-15 Carbamazepine (Tegretol) Level 7.3 ug/mL 4.0-12.0 [facility] Work Phone: Estimated GFR (MDRD) Amer 101 mL/min >60 [facility] Work Phone: [phone] Comment on above: GFR Calc Estimated GFR (MDRD) Non-Af Amer 84 mL/min >60 [facility] Work Phone: Comment on above: Non- GFR Calc Platelets bldon 03-15-2022 Platelets (Bld) [#/Vol] 327 10*3/uL 150-450 [facility] Work Phone: Serum or plasma albumin luis urement (mass/volume)on 03-15-2022 Albumin [Mass/Vol] 3.1 g/dL 3.2-5.0 [facility] Work Phone: Serum or plasma albumin/glob ulin mass ratioon 03-15-2022 Albumin/Globulin [Mass ratio] 0.8 {ratio} 0.9-2.4 [facility] Work Phone: [phone] Serum or plasma calcium luis urement (mass/volume)on 03-15-2022 Calcium [Mass/Vol] 9.1 mg/dL 8.5-10.1 [facility] Work Phone: Serum or plasma cholesterol in HDL measurement (mass/volume)on 03-15-2022 Cholesterol in HDL [Mass/Vol] 72 mg/dL >40 [facility] Work Phone: Comment on above: The drugs N-Acetylcy steine and Metamizole may falsely depress this assay. Reference Range HDL <40 mg/dL Low HDL Cholesterol HDL >or= 60 mg/dL High HDL Cholesterol Serum or plasma cholesterol in VLDL measurement (mass/volume)on 03-15-2022 Cholesterol in VLDL [Mass/Vol] 24 mg/dL 5-40 [facility] Work Phone: [phone] Serum or plasma creatinine m easurement (mass/volume)on 03-15-2022 Creatinine [Mass/Vol] 0.94 mg/dL 0.70-1.30 [facility] Work Phone: Comment on above: The validity of the calculated GFR & GFRAA in patients over 70 years has not been determined. Clinical correlation is essential. Serum or plasma low density lipoprotein (LDL) cholesterol measurement (mass/volume)on 03-15-2022 Cholesterol in LDL [Mass/Vol] 41 mg/dL 0-130 [facility] Work Phone: Serum or plasma urea nitroge n measurement (mass/volume)on 03-15-2022 Urea nitrogen [Mass/Vol] 20 mg/dL 7-18 [facility] Work Phone: Thin prep Papanicolaou smear with manual screeningon 03-15-2022 Thin prep Papanicolaou smear with manual screening 54 U/L 15-37 [facility] Work Phone: Comment on above: Slight Hemolysis, Re sult may be falsely increased. Thin prep Papanicolaou smear with manual screening 9 5-15 [facility] Work Phone: Absolute lymphocyte counton 03-02-2022 Lymphocytes Auto (Unsp spec) [#/Vol] 1.54 10*3/uL 0.83-4.51 [facility] Work Phone: Basophil percentageon 2021 Basophils/100 WBC (Bld) 0.9 % 0-1 [facility] Work Phone: Bilirubin [Mass/Vol] 0.20 mg/dL 0.20-1.00 [facility] Work Phone: Comment on above: For patients on eltr ombopag therapy, use of Dimension [place] TBIL is not recommended. Chloride [Moles/Vol] 101 mmol/L 98-107 [facility] Work Phone: Eosinophils/100 WBC (Bld) 1.0 % 0-5 [facility] Work Phone: Glucose [Mass/Vol] 98 mg/dL 74-106 [facility] Work Phone: Neutrophils (Bld) [#/Vol] 4.6 10*3/uL 2.0-7.7 [facility] Work Phone: Neutrophils/100 WBC (Bld) 67.4 % 47-70 [facility] Work Phone: Potassium [Moles/Vol] 3.8 mmol/L 3.5-5.1 [facility] Work Phone: Protein [Mass/Vol] 7.5 g/dL 6.4-8.2 [facility] Work [facility]: Sodium [Moles/Vol] 138 mmol/L 136-145 [facility] Work Phone: WBC (Bld) [#/Vol] 6.8 10*3/uL 4.4-11.0 [facility] Work Phone: Blood erythrocytes count (nu mber/volume)on 03-02-2022 RBC (Bld) [#/Vol] 5.14 10*6/uL 4.6-6.2 [facility]: Blood hemoglobin measurement (mass/volume)on 03-02-2022 Hemoglobin (Bld) [Mass/Vol] 16.3 g/dL 13.0-16.5 [facility] Work Phone: Blood lymphocytes/100 leukoc yteson 03-02-2022 Lymphocytes/100 WBC (Bld) 22.8 % 19-41 [facility] Work Phone: Blood monocytes/100 leukocyt eson 03-02-2022 Monocytes/100 WBC (Bld) 7.3 % 0-10 [facility] Work Phone: Blood platelet mean volumeon 03-02-2022 Platelet mean volume (Bld) [Entitic vol] 9.9 fL 6.2-12.0 [facility] Work Phone: Determination of erythrocyte mean corpuscular volume (MCV)on 03-02-2022 MCV (RBC) [Entitic vol] 94.9 fL 80-94 [facility] Work Phone: Hematocrit Auto (Bld) [Volum e fraction]on 03-02-2022 Hematocrit (Bld) [Volume fraction] 48.8 % 40-54 [facility] Work Phone: Laboratory - Chemistry and C hemistry - challengeon 03-02-2022 ALP [Catalytic activity/Vol] 67 U/L 45-117 [facility] Work Phone: ALT [Catalytic activity/Vol] 27 U/L 16-61 [facility] Work Phone: [phone] CO2 [Moles/Vol] 30.0 mmol/L 21.0-32.0 [facility] Work Phone: [phone] Globulin (S) [Mass/Vol] 3.7 g/dL 2.2-4.2 [facility] Work Phone: [phone] Lipase [Catalytic activity/Vol] 95 U/L 73-393 [facility] Work Phone: [phone] Urea nitrogen/Creatinine [Mass ratio] 14.8 mg/mg 10-20 [facility] Work Phone: [phone] Laboratory - Hematology and Cell countson 03-02-2022 Erythrocyte distribution width (RBC) [Entitic vol] 47.0 fL 35.1-43.9 [facility] Work Phone: [phone] Erythrocyte distribution width (RBC) [Ratio] 13.9 % 11.6-14.6 [facility] Work Phone: [phone] Immature granulocytes/100 WBC (Bld) 0.600 % 0.0-0.9 [facility] Work Phone: [phone] Comment on above: IG% - Immature Granu locytes (promyelocytes, myelocytes and metamyelocytes) > 1% indicates that a LEFT SHIFT is Present. MCH (RBC) [Entitic mass] 31.7 pg 27.0-32.0 [facility] Work Phone: Nucleated RBC/100 WBC (Bld) [Ratio] 0 % 0-5 [facility] Work Phone: [phone] MCHC Auto (RBC) [Mass/Vol]on 03-02-2022 MCHC (RBC) [Mass/Vol] 33.4 g/dL 32-36 [facility] Work Phone: No Panel Informationon 03-02 Estimated Creatinine Clearance Calc 59.81 ml/min [facility] Work Phone: Estimated GFR (MDRD) Amer 86 mL/min >60 [facility] Work Phone: Comment on above: GFR Calc Estimated GFR (MDRD) Non-Af Amer 71 mL/min >60 [facility] Work Phone: Comment on above: Non- GFR Calc Troponin I High Sensitivity 18 pg/mL 3.0-78.0 [facility] Work Phone: Comment on above: Please Note: [place] t Units and Gender Specific Reference Ranges. For more information see Policy Stat Procedure [place] High Sensitivity Troponin (TNIH) and attachments. Platelets bldon 03-02-2022 Platelets (Bld) [#/Vol] 296 10*3/uL 150-450 [facility] Work Phone: Serum or plasma albumin luis urement (mass/volume)on 03-02-2022 Albumin [Mass/Vol] 3.8 g/dL 3.2-5.0 [facility] Work Phone: Serum or plasma albumin/glob ulin mass ratioon 03-02-2022 Albumin/Globulin [Mass ratio] 1.0 {ratio} 0.9-2.4 [facility] Work Phone: Serum or plasma calcium luis urement (mass/volume)on 03-02-2022 Calcium [Mass/Vol] 9.7 mg/dL 8.5-10.1 [facility] Work Phone: Serum or plasma creatinine m easurement (mass/volume)on 03-02-2022 Creatinine [Mass/Vol] 1.08 mg/dL 0.70-1.30 [facility] Work Phone: Comment on above: The validity of the calculated GFR & GFRAA in patients over 70 years has not been determined. Clinical correlation is essential. Serum or plasma urea nitroge n measurement (mass/volume)on 03-02-2022 Urea nitrogen [Mass/Vol] 16 mg/dL 7-18 [facility] Work Phone: [phone] Thin prep Papanicolaou smear with manual screeningon 03-02-2022 Thin prep Papanicolaou smear with manual screening 15 U/L 15-37 [facility] Work Phone: [phone] Thin prep Papanicolaou smear with manual screening 7 5-15 [facility] Work Phone: Basophil percentageon 2021 Chloride [Moles/Vol] 99 mmol/L 98-107 [facility] Work Phone: [phone] Glucose [Mass/Vol] 110 mg/dL 74-106 [facility] Work Phone: [phone] Comment on above: Fasting Glucose resu lt from 100 to 125 mg/dL suggests IMPAIRED HOMEOSTASIS per A.D.A. criteria. Potassium [Moles/Vol] 4.0 mmol/L 3.5-5.1 [facility] Work Phone: [phone] Sodium [Moles/Vol] 135 mmol/L 136-145 [facility] Work Phone: [phone] WBC (Bld) [#/Vol] 6.0 10*3/uL 4.4-11.0 [facility] Work Phone: Basophil percentage 0 SEEN /hpf 0-5 [facility] Work Phone: [phone] Bilirubin Test strip Ql (U)o n 01-28-2022 Bilirubin Ql (U) Negative Negative [facility] Work Phone: [phone] Blood erythrocytes count (nu mber/volume)on 01-28-2022 RBC (Bld) [#/Vol] 5.14 10*6/uL 4.6-6.2 [facility] Work Phone: [phone] Blood hemoglobin measurement (mass/volume)on 01-28-2022 Hemoglobin (Bld) [Mass/Vol] 16.2 g/dL 13.0-16.5 [facility] Work Phone: [phone] Blood platelet mean volumeon 01-28-2022 Platelet mean volume (Bld) [Entitic vol] 9.8 fL 6.2-12.0 [facility] Work Phone: Determination of erythrocyte mean corpuscular volume (MCV)on 01-28-2022 MCV (RBC) [Entitic vol] 95.5 fL 80-94 [facility] Work Phone: [phone] Hematocrit Auto (Bld) [Volum e fraction]on 01-28-2022 Hematocrit (Bld) [Volume fraction] 49.1 % 40-54 [facility] Work Phone: [phone] Ketones Test strip Ql (U)on 01-28-2022 Ketones Ql (U) Negative Negative [facility] Work Phone: Laboratory - Chemistry and C hemistry - challengeon 01-28-2022 CO2 [Moles/Vol] 31.0 mmol/L 21.0-32.0 [facility] Work Phone: [phone] Urea nitrogen/Creatinine [Mass ratio] 11.8 mg/mg 10-20 [facility] Work Phone: Laboratory - Hematology and Cell countson 01-28-2022 Erythrocyte distribution width (RBC) [Entitic vol] 54.1 fL 35.1-43.9 [facility] Work Phone: [phone] Erythrocyte distribution width (RBC) [Ratio] 16.9 % 11.6-14.6 [facility] Work Phone: [phone] MCH (RBC) [Entitic mass] 31.5 pg 27.0-32.0 [facility] Work Phone: [phone] MCHC Auto (RBC) [Mass/Vol]on 01-28-2022 MCHC (RBC) [Mass/Vol] 33.0 g/dL 32-36 [facility] Work Phone: Mucus LM Ql (Urine sed)on Mucus Ql (Urine sed) 0 SEEN /hpf [facility] Work Phone: [phone] Nitrite Test strip Ql (U)on 01-28-2022 Nitrite Ql (U) Negative Negative [facility] Work Phone: No Panel Informationon 01-28 Estimated Creatinine Clearance Calc 63.33 ml/min [facility] Work Phone: Estimated GFR (MDRD) Amer 92 mL/min >60 [facility] Work Phone: Comment on above: GFR Calc Estimated GFR (MDRD) Non-Af Amer 76 mL/min >60 [facility] Work Phone: Comment on above: Non- GFR Calc Platelets bldon 01-28-2022 Platelets (Bld) [#/Vol] 250 10*3/uL 150-450 [facility] Work Phone: Protein Test strip Ql (U)on 01-28-2022 Protein Ql (U) 100 mg/dl Negative [facility] Work Phone: [phone] Serum or plasma calcium luis urement (mass/volume)on 01-28-2022 Calcium [Mass/Vol] 10.3 mg/dL 8.5-10.1 [facility] Work Phone: Serum or plasma creatinine m easurement (mass/volume)on 01-28-2022 Creatinine [Mass/Vol] 1.02 mg/dL 0.70-1.30 [facility] Work Phone: Comment on above: The validity of the calculated GFR & GFRAA in patients over 70 years has not been determined. Clinical correlation is essential. Serum or plasma urea nitroge n measurement (mass/volume)on 01-28-2022 Urea nitrogen [Mass/Vol] 12 mg/dL 7-18 [facility] Work Phone: [phone] Squamous epithelial cells de tection in urine sediment by light microscopyon 01-28-2022 Epithelial cells.squamous LM Ql (Urine sed) 0 SEEN /hpf 0-5 [facility] Work Phone: [phone] Thin prep Papanicolaou smear with manual screeningon 01-28-2022 Thin prep Papanicolaou smear with manual screening 5 5-15 [facility] Work Phone: [phone] Urine blood detectionon 01-17 RBC Ql (U) 10 /ul Negative [facility] Work Phone: RBC Ql (U) 0 SEEN /hpf 0-5 [facility] Work Phone: Urine clarityon 01-28-2022 Clarity (U) Clear Clear [facility] Work Phone: Urine color determinationon 01-28-2022 Color (U) Yellow Yellow [facility] Work Phone: Urine glucose detectionon Glucose Ql (U) Normal mg/dl Normal [facility] Work Phone: Urine leukocyte esterase det ection by dipstickon 01-28-2022 Leukocyte esterase Test strip Ql (U) Negative Negative [facility] Work Phone: Urine pHon 01-28-2022 pH (U) 6.5 [pH] 5.0 - 8.0 [facility] Work Phone: Urine sediment bacteria coun t by microscopy (number/high power field)on 01-28-2022 Bacteria LM.HPF (Urine sed) [#/Area] 0 /[HPF] None Seen [facility] Work Phone: Urine specific gravity measu rementon 01-28-2022 Specific gravity (U) [Rel density] 1.015 1.002-1.030 [facility] Work Phone: Urobilinogen Auto test strip Ql (U)on 01-28-2022 Urobilinogen Ql (U) Normal mg/dl Normal [facility] Work Phone: CNOVon 01-20-2022 CNOV Office Visit (PHYLICIA U) PEDRO PABLO SIERRA ([id number]) 1950 M T Date Time Provider Department 01/20/22 1:00 PM YE COELLO During your visit today, we recorded the following information about you: Pulse Blood pressure 61/minute 172/102 Ye Coello MD 01/20/2022 1:44 PM Signed Please do not hesitate to call my office for any questions or concerns. 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 [...] years: 2 (more content not included)... Normal [facility] Laboratory - Coagulationon 0 12-30-2021 INR Coag (Bld) [Relative time] 2.2 {INR} [facility] Work Phone: Comment on above: Critical Value > 4.0 Whole blood prothrombin time on 12-30-2021 PT Coag (Bld) [Time] 25.6 s 11.7-14.9 [facility] Work Phone: Basophil percentageon 2021 Chloride [Moles/Vol] 103 mmol/L 98-107 [facility] Work Phone: Glucose [Mass/Vol] 89 mg/dL 74-106 [facility] Work Phone: Potassium [Moles/Vol] 3.6 mmol/L 3.5-5.1 [facility] Work Phone: Sodium [Moles/Vol] 138 mmol/L 136-145 [facility] Work Phone: [phone] WBC (Bld) [#/Vol] 5.3 10*3/uL 4.4-11.0 [facility] Work Phone: Blood erythrocytes count (nu mber/volume)on 12-29-2021 RBC (Bld) [#/Vol] 3.86 10*6/uL 4.6-6.2 [facility] Work Phone: Blood hemoglobin measurement (mass/volume)on 12-29-2021 Hemoglobin (Bld) [Mass/Vol] 11.6 g/dL 13.0-16.5 [facility] Work Phone: Blood manual differential co mment interpretation (narrative result)on 12-29-2021 Manual differential comment Ghassan (Bld) [Interp] COMMENT [facility] Work Phone: Comment on above: 1+ ANISO. Blood platelet mean volumeon 12-29-2021 Platelet mean volume (Bld) [Entitic vol] 10.0 fL 6.2-12.0 [facility] Work Phone: Determination of erythrocyte mean corpuscular volume (MCV)on 12-29-2021 MCV (RBC) [Entitic vol] 94.6 fL 80-94 [facility] Work Phone: [phone] Hematocrit Auto (Bld) [Volum e fraction]on 12-29-2021 Hematocrit (Bld) [Volume fraction] 36.5 % 40-54 [facility] Work Phone: [phone] Laboratory - Chemistry and C hemistry - challengeon 12-29-2021 CO2 [Moles/Vol] 31.0 mmol/L 21.0-32.0 [facility] Work Phone: [phone] Urea nitrogen/Creatinine [Mass ratio] 29.5 mg/mg 10-20 [facility] Work Phone: [phone] Laboratory - Hematology and Cell countson 12-29-2021 Erythrocyte distribution width (RBC) [Entitic vol] 83.6 fL 35.1-43.9 [facility] Work Phone: [phone] Erythrocyte distribution width (RBC) [Ratio] 24.9 % 11.6-14.6 [facility] Work Phone: [phone] MCH (RBC) [Entitic mass] 30.1 pg 27.0-32.0 [facility] Work Phone: [phone] MCHC Auto (RBC) [Mass/Vol]on 12-29-2021 MCHC (RBC) [Mass/Vol] 31.8 g/dL 32-36 [facility] Work Phone: [phone] No Panel Informationon 12-29 Estimated GFR (MDRD) Amer 109 mL/min >60 [facility] Work Phone: [phone] Comment on above: GFR Calc Estimated GFR (MDRD) Non-Af Amer 90 mL/min >60 [facility] Work Phone: [phone] Comment on above: Non- GFR Calc Platelets bldon 12-29-2021 Platelets (Bld) [#/Vol] 207 10*3/uL 150-450 [facility] Work Phone: [phone] Serum or plasma calcium luis urement (mass/volume)on 12-29-2021 Calcium [Mass/Vol] 9.0 mg/dL 8.5-10.1 [facility] Work Phone: Serum or plasma creatinine m easurement (mass/volume)on 12-29-2021 Creatinine [Mass/Vol] 0.88 mg/dL 0.70-1.30 [facility] Work Phone: Comment on above: The validity of the calculated GFR & GFRAA in patients over 70 years has not been determined. Clinical correlation is essential. Serum or plasma urea nitroge n measurement (mass/volume)on 12-29-2021 Urea nitrogen [Mass/Vol] 26 mg/dL 7-18 [facility] Work Phone: Thin prep Papanicolaou smear with manual screeningon 12-29-2021 Thin prep Papanicolaou smear with manual screening 4 5-15 [facility] Work Phone: Laboratory - Coagulationon 0 12-23-2021 INR Coag (Bld) [Relative time] 2.5 {INR} [facility] Work Phone: Comment on above: Critical Value > 4.0 Whole blood prothrombin time on 12-23-2021 PT Coag (Bld) [Time] 29.1 s 11.7-14.9 [facility] Work Phone: [phone] Laboratory - Coagulationon 0 12-17-2021 INR Coag (Bld) [Relative time] 1.5 {INR} [facility] Work Phone: Comment on above: Critical Value > 4.0 Whole blood prothrombin time on 12-17-2021 PT Coag (Bld) [Time] 18.5 s 11.7-14.9 [facility] Work Phone: Basophil percentageon 2021 Chloride [Moles/Vol] 106 mmol/L 98-107 [facility] Work Phone: [phone] Glucose [Mass/Vol] 94 mg/dL 74-106 [facility] Work Phone: [phone] Potassium [Moles/Vol] 4.2 mmol/L 3.5-5.1 [facility] Work Phone: Sodium [Moles/Vol] 138 mmol/L 136-145 [facility] Work Phone: WBC (Bld) [#/Vol] 5.7 10*3/uL 4.4-11.0 [facility] Work Phone: Blood erythrocytes count (nu mber/volume)on 12-10-2021 RBC (Bld) [#/Vol] 4.20 10*6/uL 4.6-6.2 [facility] Work Phone: Blood hemoglobin measurement (mass/volume)on 12-10-2021 Hemoglobin (Bld) [Mass/Vol] 11.5 g/dL 13.0-16.5 [facility] Work Phone: Blood manual differential co mment interpretation (narrative result)on 12-10-2021 Manual differential comment Ghassan (Bld) [Interp] COMMENT [facility] Work Phone: Comment on above: 1+ ANISO. Blood platelet mean volumeon 12-10-2021 Platelet mean volume (Bld) [Entitic vol] 10.2 fL 6.2-12.0 [facility] Work Phone: Determination of erythrocyte mean corpuscular volume (MCV)on 12-10-2021 MCV (RBC) [Entitic vol] 91.7 fL 80-94 [facility] Work Phone: [phone] Hematocrit Auto (Bld) [Volum e fraction]on 12-10-2021 Hematocrit (Bld) [Volume fraction] 38.5 % 40-54 [facility] Work Phone: [phone] INR in Blood by Coagulation assayon 12-10-2021 INR Coag (Bld) [Relative time] 1.6 {INR} [facility] Work Phone: Laboratory - Chemistry and C hemistry - challengeon 12-10-2021 CO2 [Moles/Vol] 26.0 mmol/L 21.0-32.0 [facility] Work Phone: [phone] Urea nitrogen/Creatinine [Mass ratio] 21.5 mg/mg 10-20 [facility] Work Phone: Laboratory - Coagulationon 0 12-10-2021 PT Coag (PPP) [Time] 18.3 s 11.7-14.9 [facility] Work Phone: Laboratory - Hematology and Cell countson 12-10-2021 Erythrocyte distribution width (RBC) [Entitic vol] 95.8 fL 35.1-43.9 [facility] Work Phone: [phone] Erythrocyte distribution width (RBC) [Ratio] 29.7 % 11.6-14.6 [facility] Work Phone: [phone] MCH (RBC) [Entitic mass] 27.4 pg 27.0-32.0 [facility] Work Phone: [phone] MCHC Auto (RBC) [Mass/Vol]on 12-10-2021 MCHC (RBC) [Mass/Vol] 29.9 g/dL 32-36 [facility] Work Phone: No Panel Informationon 12-10 Estimated GFR (MDRD) Amer 97 mL/min >60 [facility] Work Phone: Comment on above: GFR Calc Estimated GFR (MDRD) Non-Af Amer 80 mL/min >60 [facility] Work Phone: Comment on above: Non- GFR Calc Platelets bldon 12-10-2021 Platelets (Bld) [#/Vol] 327 10*3/uL 150-450 [facility] Work Phone: [phone] Serum or plasma calcium luis urement (mass/volume)on 12-10-2021 Calcium [Mass/Vol] 9.0 mg/dL 8.5-10.1 [facility] Work Phone: [phone] Serum or plasma creatinine m easurement (mass/volume)on 12-10-2021 Creatinine [Mass/Vol] 0.98 mg/dL 0.70-1.30 [facility] Work Phone: Comment on above: The validity of the calculated GFR & GFRAA in patients over 70 years has not been determined. Clinical correlation is essential. Serum or plasma urea nitroge n measurement (mass/volume)on 12-10-2021 Urea nitrogen [Mass/Vol] 21 mg/dL 7-18 [facility] Work Phone: Thin prep Papanicolaou smear with manual screeningon 12-10-2021 Thin prep Papanicolaou smear with manual screening 6 5-15 [facility] Work Phone: Basophil percentageon 2021 Chloride [Moles/Vol] 107 mmol/L 98-107 [facility] Work Phone: [phone] Glucose [Mass/Vol] 89 mg/dL 74-106 [facility] Work Phone: [phone] Potassium [Moles/Vol] 4.3 mmol/L 3.5-5.1 [facility] Work Phone: [phone] Sodium [Moles/Vol] 140 mmol/L 136-145 [facility] Work Phone: [phone] WBC (Bld) [#/Vol] 6.1 10*3/uL 4.4-11.0 [facility] Work Phone: Blood erythrocytes count (nu mber/volume)on 12-08-2021 RBC (Bld) [#/Vol] 3.96 10*6/uL 4.6-6.2 [facility] Work Phone: [phone] Blood hemoglobin measurement (mass/volume)on 12-08-2021 Hemoglobin (Bld) [Mass/Vol] 10.6 g/dL 13.0-16.5 [facility] Work Phone: [phone] Blood platelet mean volumeon 12-08-2021 Platelet mean volume (Bld) [Entitic vol] 10.8 fL 6.2-12.0 [facility] Work Phone: [phone] Determination of erythrocyte mean corpuscular volume (MCV)on 12-08-2021 MCV (RBC) [Entitic vol] 91.2 fL 80-94 [facility] Work Phone: Hematocrit Auto (Bld) [Volum e fraction]on 12-08-2021 Hematocrit (Bld) [Volume fraction] 36.1 % 40-54 [facility] Work Phone: INR in Blood by Coagulation assayon 12-08-2021 INR Coag (Bld) [Relative time] 1.5 {INR} [facility] Work Phone: Laboratory - Chemistry and C hemistry - challengeon 12-08-2021 CO2 [Moles/Vol] 27.0 mmol/L 21.0-32.0 [facility] Work Phone: Urea nitrogen/Creatinine [Mass ratio] 23.1 mg/mg 10-20 [facility] Work Phone: Laboratory - Coagulationon 0 12-08-2021 PT Coag (PPP) [Time] 17.5 s 11.7-14.9 [facility] Work Phone: Laboratory - Hematology and Cell countson 12-08-2021 Erythrocyte distribution width (RBC) [Entitic vol] 97.8 fL 35.1-43.9 [facility] Work Phone: Erythrocyte distribution width (RBC) [Ratio] 30.4 % 11.6-14.6 [facility] Work Phone: MCH (RBC) [Entitic mass] 26.8 pg 27.0-32.0 [facility] Work Phone: MCHC Auto (RBC) [Mass/Vol]on 12-08-2021 MCHC (RBC) [Mass/Vol] 29.4 g/dL 32-36 [facility] Work Phone: No Panel Informationon 12-08 Carbamazepine (Tegretol) Level 7.9 ug/mL 4.0-12.0 [facility] Work Phone: Estimated GFR (MDRD) Amer 90 mL/min >60 [facility] Work Phone: Comment on above: GFR Calc Estimated GFR (MDRD) Non-Af Amer 75 mL/min >60 [facility] Work Phone: Comment on above: Non- GFR Calc Platelets bldon 12-08-2021 Platelets (Bld) [#/Vol] 295 10*3/uL 150-450 [facility] Work Phone: Serum or plasma calcium luis urement (mass/volume)on 12-08-2021 Calcium [Mass/Vol] 8.8 mg/dL 8.5-10.1 [facility] Work Phone: Serum or plasma creatinine m easurement (mass/volume)on 12-08-2021 Creatinine [Mass/Vol] 1.04 mg/dL 0.70-1.30 [facility] Work Phone: Comment on above: The validity of the calculated GFR & GFRAA in patients over 70 years has not been determined. Clinical correlation is essential. Serum or plasma urea nitroge n measurement (mass/volume)on 12-08-2021 Urea nitrogen [Mass/Vol] 24 mg/dL 7-18 [facility] Work Phone: Thin prep Papanicolaou smear with manual screeningon 12-08-2021 Thin prep Papanicolaou smear with manual screening 6 5-15 [facility] Work Phone: Absolute lymphocyte counton 12-06-2021 Lymphocytes Auto (Unsp spec) [#/Vol] 1.64 10*3/uL 0.83-4.51 [facility] Work Phone: Basophil percentageon 2021 Basophils/100 WBC (Bld) 1.6 % 0-1 [facility] Work Phone: Chloride [Moles/Vol] 106 mmol/L 98-107 [facility] Work Phone: Eosinophils/100 WBC (Bld) 4.0 % 0-5 [facility] Work Phone: Glucose [Mass/Vol] 75 mg/dL 74-106 [facility] Work Phone: Neutrophils (Bld) [#/Vol] 4.5 10*3/uL 2.0-7.7 [facility] Work Phone: Neutrophils/100 WBC (Bld) 64.0 % 47-70 [facility] Work Phone: Potassium [Moles/Vol] 4.6 mmol/L 3.5-5.1 [facility] Work Phone: Sodium [Moles/Vol] 138 mmol/L 136-145 [facility] Work Phone: WBC (Bld) [#/Vol] 7.0 10*3/uL 4.4-11.0 [facility] Work Phone: Blood erythrocytes count (nu mber/volume)on 12-06-2021 RBC (Bld) [#/Vol] 3.83 10*6/uL 4.6-6.2 [facility] Work Phone: Blood hemoglobin measurement (mass/volume)on 12-06-2021 Hemoglobin (Bld) [Mass/Vol] 10.2 g/dL 13.0-16.5 [facility] Work Phone: Blood lymphocytes/100 leukoc yteson 12-06-2021 Lymphocytes/100 WBC (Bld) 23.6 % 19-41 [facility] Work Phone: Blood monocytes/100 leukocyt eson 12-06-2021 Monocytes/100 WBC (Bld) 6.5 % 0-10 [facility] Work Phone: Blood platelet adequacy dete ction by light microscopyon 12-06-2021 Platelets LM Ql (Bld) ADEQUATE ADEQ [facility] Work Phone: Blood platelet mean volumeon 12-06-2021 Platelet mean volume (Bld) [Entitic vol] 10.7 fL 6.2-12.0 [facility] Work Phone: Blood poikilocytosis detecti on by light microscopyon 12-06-2021 Poikilocytosis LM Ql (Bld) 1+ [facility] Work Phone: Determination of erythrocyte mean corpuscular volume (MCV)on 12-06-2021 MCV (RBC) [Entitic vol] 92.7 fL 80-94 [facility] Work Phone: Hematocrit Auto (Bld) [Volum e fraction]on 12-06-2021 Hematocrit (Bld) [Volume fraction] 35.5 % 40-54 [facility] Work Phone: Hypochromatic red blood cell detectionon 12-06-2021 Hypochromia Ql (Bld) 1+ [facility] Work Phone: INR in Blood by Coagulation assayon 12-06-2021 INR Coag (Bld) [Relative time] 1.2 {INR} [facility] Work Phone: [phone] Laboratory - Chemistry and C hemistry - challengeon 12-06-2021 CO2 [Moles/Vol] 25.0 mmol/L 21.0-32.0 [facility] Work Phone: Urea nitrogen/Creatinine [Mass ratio] 17.1 mg/mg - [facility] Work Phone: Laboratory - Coagulationon 0 12-06-2021 PT Coag (PPP) [Time] 14.9 s 11.7-14.9 [facility] Work Phone: Laboratory - Hematology and Cell countson 12-06-2021 Anisocytosis Ql (Bld) 4+ [facility] Work Phone: Erythrocyte distribution width (RBC) [Entitic vol] 100.5 fL 35.1-43.9 [facility] Work Phone: [phone] Erythrocyte distribution width (RBC) [Ratio] 30.6 % 11.6-14.6 [facility] Work Phone: Immature granulocytes/100 WBC (Bld) 0.300 % 0.0-0.9 [facility] Work Phone: Comment on above: IG% - Immature Granu locytes (promyelocytes, myelocytes and metamyelocytes) > 1% indicates that a LEFT SHIFT is Present. MCH (RBC) [Entitic mass] 26.6 pg 27.0-32.0 [facility] Work Phone: Nucleated RBC/100 WBC (Bld) [Ratio] 0 % 0-5 [facility] Work Phone: MCHC Auto (RBC) [Mass/Vol]on 12-06-2021 MCHC (RBC) [Mass/Vol] 28.7 g/dL 32-36 [facility] Work Phone: Macrocytes detectionon 12-06 [facility] Ql (Bld) [facility]+ [facility] Work Phone: No Panel Informationon 12-06 Estimated GFR (MDRD) Amer 89 mL/min >60 [facility] Work Phone: Comment on above: GFR Calc Estimated GFR (MDRD) Non-Af Amer 74 mL/min >60 [facility] Work Phone: Comment on above: Non- GFR Calc Ovalocyte detectionon 2021 Ovalocytes LM Ql (Bld) 2+ [facility] Work Phone: Platelets bldon 12-06-2021 Platelets (Bld) [#/Vol] 265 10*3/uL 150-450 [facility] Work Phone: Serum or plasma calcium luis urement (mass/volume)on 12-06-2021 Calcium [Mass/Vol] 8.9 mg/dL 8.5-10.1 [facility] Work Phone: Serum or plasma creatinine m easurement (mass/volume)on 12-06-2021 Creatinine [Mass/Vol] 1.05 mg/dL 0.70-1.30 [facility] Work Phone: Comment on above: The validity of the calculated GFR & GFRAA in patients over 70 years has not been determined. Clinical correlation is essential. Serum or plasma urea nitroge n measurement (mass/volume)on 12-06-2021 Urea nitrogen [Mass/Vol] 18 mg/dL 7-18 [facility] Work Phone: Teardrop cell detectionon Dacrocytes LM Ql (Bld) 1+ [place] Work Phone: Thin prep Papanicolaou smear with manual screeningon 12-06-2021 Thin prep Papanicolaou smear with manual screening 1+ [facility] Work Phone: Thin prep Papanicolaou smear with manual screening 7 5-15 [facility] Work Phone: Basophil percentageon 2021 Basophil percentage 0-5 SEEN /hpf 0-5 [place] Work Phone: Bilirubin Test strip Ql (U)o n 12-04-2021 Bilirubin Ql (U) Negative Negative [facility] Work Phone: Ketones Test strip Ql (U)on 12-04-2021 Ketones Ql (U) Negative Negative [facility] Work Phone: Mucus LM Ql (Urine sed)on Mucus Ql (Urine sed) 0 SEEN /hpf [facility] Work Phone: Nitrite Test strip Ql (U)on 12-04-2021 Nitrite Ql (U) Negative Negative [facility] Work Phone: Protein Test strip Ql (U)on 12-04-2021 Protein Ql (U) Negative Negative [facility] Work Phone: Squamous epithelial cells de tection in urine sediment by light microscopyon 12-04-2021 Epithelial cells.squamous LM Ql (Urine sed) 0-5 SEEN /hpf 0-5 [facility] Work Phone: Urine blood detectionon 11-17 RBC Ql (U) 25 /ul Negative [facility] Work Phone: RBC Ql (U) 0 SEEN /hpf 0-5 [facility] Work Phone: Urine clarityon 12-04-2021 Clarity (U) Cloudy Clear [facility] Work Phone: Urine color determinationon 12-04-2021 Color (U) Yellow Yellow [facility] Work Phone: Urine glucose detectionon Glucose Ql (U) Normal mg/dl Normal [facility] Work Phone: Urine leukocyte esterase det ection by dipstickon 12-04-2021 Leukocyte esterase Test strip Ql (U) 500 /ul Negative [facility] Work Phone: Urine pHon 12-04-2021 pH (U) 6.0 [pH] 5.0 - 8.0 [facility] Work Phone: Urine sediment bacteria coun t by microscopy (number/high power field)on 12-04-2021 Bacteria LM.HPF (Urine sed) [#/Area] 4 /[HPF] None Seen [facility] Work Phone: Urine specific gravity measu rementon 12-04-2021 Specific gravity (U) [Rel density] 1.015 1.002-1.030 [facility] Work Phone: Urobilinogen Auto test strip Ql (U)on 12-04-2021 Urobilinogen Ql (U) Normal mg/dl Normal [facility] Work Phone: Basophil percentageon 2021 Chloride [Moles/Vol] 105 mmol/L 98-107 [facility] Work Phone: Glucose [Mass/Vol] 96 mg/dL 74-106 [facility] Work Phone: Potassium [Moles/Vol] 3.9 mmol/L 3.5-5.1 [facility] Work Phone: Sodium [Moles/Vol] 138 mmol/L 136-145 [facility] Work Phone: WBC (Bld) [#/Vol] 7.5 10*3/uL 4.4-11.0 [facility] Work Phone: Blood erythrocytes count (nu mber/volume)on 12-01-2021 RBC (Bld) [#/Vol] 3.41 10*6/uL 4.6-6.2 [facility] Work Phone: Blood hemoglobin measurement (mass/volume)on 12-01-2021 Hemoglobin (Bld) [Mass/Vol] 8.3 g/dL 13.0-16.5 [facility] Work Phone: Blood platelet mean volumeon 12-01-2021 Platelet mean volume (Bld) [Entitic vol] 11.1 fL 6.2-12.0 [facility] Work Phone: Determination of erythrocyte mean corpuscular volume (MCV)on 12-01-2021 MCV (RBC) [Entitic vol] 86.2 fL 80-94 [facility] Work Phone: Hematocrit Auto (Bld) [Volum e fraction]on 12-01-2021 Hematocrit (Bld) [Volume fraction] 29.4 % 40-54 [facility] Work Phone: INR in Blood by Coagulation assayon 12-01-2021 INR Coag (Bld) [Relative time] 1.4 {INR} [facility] Work Phone: Laboratory - Chemistry and C hemistry - challengeon 12-01-2021 CO2 [Moles/Vol] 26.0 mmol/L 21.0-32.0 [facility] Work Phone: Urea nitrogen/Creatinine [Mass ratio] 14.6 mg/mg 10-20 [facility] Work Phone: Laboratory - Coagulationon 0 12-01-2021 PT Coag (PPP) [Time] 16.9 s 11.7-14.9 [facility] Work Phone: Laboratory - Hematology and Cell countson 12-01-2021 Erythrocyte distribution width (RBC) [Entitic vol] 68.4 fL 35.1-43.9 [facility] Work Phone: Erythrocyte distribution width (RBC) [Ratio] 26.7 % 11.6-14.6 [facility] Work Phone: MCH (RBC) [Entitic mass] 24.3 pg 27.0-32.0 [facility] Work Phone: MCHC Auto (RBC) [Mass/Vol]on 12-01-2021 MCHC (RBC) [Mass/Vol] 28.2 g/dL 32-36 [facility] Work Phone: No Panel Informationon 12-01 Estimated GFR (MDRD) Amer 99 mL/min >60 [facility] Work Phone: Comment on above: GFR Calc Estimated GFR (MDRD) Non-Af Amer 82 mL/min >60 [facility] Work Phone: Comment on above: Non- GFR Calc Platelets bldon 12-01-2021 Platelets (Bld) [#/Vol] 307 10*3/uL 150-450 [facility] Work Phone: Serum or plasma calcium luis urement (mass/volume)on 12-01-2021 Calcium [Mass/Vol] 9.5 mg/dL 8.5-10.1 [facility] Work Phone: Serum or plasma creatinine m easurement (mass/volume)on 12-01-2021 Creatinine [Mass/Vol] 0.96 mg/dL 0.70-1.30 [facility] Work Phone: Comment on above: The validity of the calculated GFR & GFRAA in patients over 70 years has not been determined. Clinical correlation is essential. Serum or plasma urea nitroge n measurement (mass/volume)on 12-01-2021 Urea nitrogen [Mass/Vol] 14 mg/dL 7-18 [facility] Work Phone: [phone] Thin prep Papanicolaou smear with manual screeningon 12-01-2021 Thin prep Papanicolaou smear with manual screening 7 5-15 [facility] Work Phone: [phone] Absolute lymphocyte counton 11-30-2021 Lymphocytes Auto (Unsp spec) [#/Vol] 1.13 10*3/uL 0.83-4.51 [facility] Work Phone: [phone] Basophil percentageon 2021 Basophil percentage 3.4 mg/dL 2.5-4.9 [facility] Work Phone: Basophils/100 WBC (Bld) 1.5 % 0-1 [facility] Work Phone: Chloride [Moles/Vol] 107 mmol/L 98-107 [facility] Work Phone: Eosinophils/100 WBC (Bld) 3.5 % 0-5 [facility] Work Phone: Glucose [Mass/Vol] 90 mg/dL 74-106 [facility] Work Phone: Neutrophils (Bld) [#/Vol] 6.9 10*3/uL 2.0-7.7 [facility] Work Phone: Neutrophils/100 WBC (Bld) 74.4 % 47-70 [facility] Work Phone: Potassium [Moles/Vol] 3.4 mmol/L 3.5-5.1 [facility] Work Phone: Sodium [Moles/Vol] 140 mmol/L 136-145 [facility] Work Phone: WBC (Bld) [#/Vol] 9.3 10*3/uL 4.4-11.0 [facility] Work Phone: Blood erythrocytes count (nu mber/volume)on 11-30-2021 RBC (Bld) [#/Vol] 3.21 10*6/uL 4.6-6.2 [facility] Work Phone: Blood hemoglobin measurement (mass/volume)on 11-30-2021 Hemoglobin (Bld) [Mass/Vol] 7.8 g/dL 13.0-16.5 [facility] Work Phone: Blood lymphocytes/100 leukoc yteson 11-30-2021 Lymphocytes/100 WBC (Bld) 12.2 % 19-41 [facility] Work Phone: Blood monocytes/100 leukocyt eson 11-30-2021 Monocytes/100 WBC (Bld) 7.0 % 0-10 [facility] Work Phone: Blood platelet mean volumeon 11-30-2021 Platelet mean volume (Bld) [Entitic vol] 10.8 fL 6.2-12.0 [facility] Work Phone: Blood polychromasia detectio n by light microscopyon 11-30-2021 Polychromasia LM Ql (Bld) 2+ [facility] Work Phone: Determination of erythrocyte mean corpuscular volume (MCV)on 11-30-2021 MCV (RBC) [Entitic vol] 83.8 fL 80-94 [facility] Work Phone: Hematocrit Auto (Bld) [Volum e fraction]on 11-30-2021 Hematocrit (Bld) [Volume fraction] 26.9 % 40-54 [facility] Work Phone: INR in Blood by Coagulation assayon 11-30-2021 INR Coag (Bld) [Relative time] 1.4 {INR} [facility] Work Phone: Laboratory - Chemistry and C hemistry - challengeon 11-30-2021 CO2 [Moles/Vol] 26.0 mmol/L 21.0-32.0 [facility] Work Phone: Urea nitrogen/Creatinine [Mass ratio] 12.0 mg/mg 10-20 [facility] Work Phone: Laboratory - Coagulationon 0 11-30-2021 PT Coag (PPP) [Time] 17.1 s 11.7-14.9 [facility] Work Phone: Laboratory - Hematology and Cell countson 11-30-2021 Anisocytosis Ql (Bld) 2+ [facility] Work Phone: Erythrocyte distribution width (RBC) [Entitic vol] 64.9 fL 35.1-43.9 [facility] Work Phone: Erythrocyte distribution width (RBC) [Ratio] 24.2 % 11.6-14.6 [facility] Work Phone: Immature granulocytes/100 WBC (Bld) 1.400 % 0.0-0.9 [facility] Work Phone: Comment on above: IG% - Immature Granu locytes (promyelocytes, myelocytes and metamyelocytes) > 1% indicates that a LEFT SHIFT is Present. MCH (RBC) [Entitic mass] 24.3 pg 27.0-32.0 [facility] Work Phone: [phone] Nucleated RBC/100 WBC (Bld) [Ratio] 2.7 % 0-5 [facility] Work Phone: [phone] MCHC Auto (RBC) [Mass/Vol]on 11-30-2021 MCHC (RBC) [Mass/Vol] 29.0 g/dL 32-36 [facility] Work Phone: [phone] Panel Informationon 11-30 Estimated Creatinine Clearance Calc 70.99 ml/min [facility] Work Phone: [phone] Estimated GFR (MDRD) Amer 105 mL/min >60 [facility] Work Phone: [phone] Comment on above: GFR Calc Estimated GFR (MDRD) Non-Af Amer 87 mL/min >60 [facility] Work Phone: [phone] Comment on above: Non- GFR Calc Anti-Gliadin IgA Antibody 3 units 0-19 [facility] Work Phone: Comment on above: Negative 0 - 19 Weak Positive 20 - 30 Moderate to Strong Positive >30 Anti-Gliadin IgG Antibody 1 units 0-19 [facility] Work Phone: Comment on above: Negative 0 - 19 Weak Positive 20 - 30 Moderate to Strong Positive >30 Endomysial IgA Antibody Negative Negative [facility] Work Phone: [phone] Tissue Transglutaminase IgG Ab <2 U/mL 0-5 [facility] Work Phone: [phone] Comment on above: Negative 0 - 5 Weak Positive 6 - 9 Positive >9 Platelets bldon 11-30-2021 Platelets (Bld) [#/Vol] 305 10*3/uL 150-450 [facility] Work Phone: Serum IgA measurement (units /volume)on 11-30-2021 IgA Qn (S) 128 mg/dL 61-437 [facility] Work Phone: Comment on above: Performed at: [address] [id number] Director: Дмитрий Tran PhD, Phone: [phone] Serum or plasma calcium luis urement (mass/volume)on 11-30-2021 Calcium [Mass/Vol] 8.9 mg/dL 8.5-10.1 [facility] Work Phone: Serum or plasma creatinine m easurement (mass/volume)on 11-30-2021 Creatinine [Mass/Vol] 0.91 mg/dL 0.70-1.30 [facility] Work Phone: Comment on above: The validity of the calculated GFR & GFRAA in patients over 70 years has not been determined. Clinical correlation is essential. Serum or plasma urea nitroge n measurement (mass/volume)on 11-30-2021 Urea nitrogen [Mass/Vol] 11 mg/dL 7-18 [facility] Work Phone: Serum tissue transglutaminas e IgA antibody assay (units/volume)on 11-30-2021 tTG IgA Qn (S) <2 U/mL 0-3 [facility] Work Phone: Comment on above: Negative 0 - 3 Weak Positive 4 - 10 Positive >10 Tissue Transglutaminase (tTG) has been identified as the endomysial antigen. Studies have demonstr- ated that endomysial IgA antibodies have over 99% specificity for gluten sensitive enteropathy. Thin prep Papanicolaou smear with manual screeningon 11-30-2021 Thin prep Papanicolaou smear with manual screening 7 5-15 [facility] Work Phone: [phone] Blood platelet adequacy dete ction by light microscopyon 11-29-2021 Platelets LM Ql (Bld) ADEQUATE ADEQ [facility] Work Phone: [phone] Hypochromatic red blood cell detectionon 11-29-2021 Hypochromia Ql (Bld) 1+ [facility] Work Phone: Serum or plasma ferritin arlyn surement (mass/volume)on 11-29-2021 Ferritin [Mass/Vol] 157 ng/mL 26-388 [facility] Work Phone: Blood manual differential co mment interpretation (narrative result)on 11-28-2021 Manual differential comment Ghassan (Bld) [Interp] SCANNED [facility] Work Phone: Laboratory - Chemistry and C hemistry - challengeon 11-28-2021 Magnesium [Mass/Vol] 2.0 mg/dL 1.6-2.6 [facility] Work Phone: Macrocytes detectionon 11-28 Macrocytes Ql (Bld) RARE [facility] Work Phone: Ovalocyte detectionon 2021 Ovalocytes LM Ql (Bld) 1+ [place] Work Phone: Thin prep Papanicolaou smear with manual screeningon 11-28-2021 Thin prep Papanicolaou smear with manual screening 1+ [facility] Work Phone: Laboratory - Chemistry and C hemistry - challengeon 11-26-2021 Cobalamin (Vitamin B12) [Mass/Vol] 403 pg/mL 211-911 [facility] Work Phone: No Panel Informationon 11-26 Troponin I High Sensitivity 13 pg/mL 3.0-78.0 [facility] Work Phone: Comment on above: Please Note: New [place] t Units and Gender Specific Reference Ranges. For more information see Policy Stat Procedure [place] High Sensitivity Troponin (TNIH) and attachments. Absolute lymphocyte counton 11-25-2021 Lymphocytes Auto (Unsp spec) [#/Vol] 0.81 10*3/uL 0.83-4.51 [facility] Work Phone: Basophil percentageon 2021 Basophil percentage 0 SEEN /hpf 0-5 [facility] Work Phone: Basophils/100 WBC (Bld) 0.7 % 0-1 [facility] Work Phone: Eosinophils/100 WBC (Bld) 0.1 % 0-5 [facility] Work Phone: Neutrophils (Bld) [#/Vol] 5.8 10*3/uL 2.0-7.7 [facility] Work Phone: Neutrophils/100 WBC (Bld) 80.9 % 47-70 [facility] Work Phone: WBC (Bld) [#/Vol] 7.1 10*3/uL 4.4-11.0 [facility] Work Phone: Bilirubin [Mass/Vol] 0.20 mg/dL 0.20-1.00 [facility] Work Phone: Comment on above: For patients on eltr ombopag therapy, use of Dimension [place] TBIL is not recommended. Chloride [Moles/Vol] 101 mmol/L 98-107 [facility] Work Phone: Glucose [Mass/Vol] 113 mg/dL 74-106 [facility] Work Phone: Comment on above: Fasting Glucose resu lt from 100 to 125 mg/dL suggests IMPAIRED HOMEOSTASIS per A.D.A. criteria. Potassium [Moles/Vol] 4.2 mmol/L 3.5-5.1 [facility] Work Phone: [phone] Protein [Mass/Vol] 6.8 g/dL 6.4-8.2 [facility] Work Phone: [phone] Sodium [Moles/Vol] 133 mmol/L 136-145 [facility] Work Phone: [phone] Bilirubin Test strip Ql (U)o n 11-25-2021 Bilirubin Ql (U) Negative Negative [facility] Work Phone: [phone] Blood erythrocytes count (nu mber/volume)on 11-25-2021 RBC (Bld) [#/Vol] 2.36 10*6/uL 4.6-6.2 [facility] Work Phone: Blood hemoglobin measurement (mass/volume)on 11-25-2021 Hemoglobin (Bld) [Mass/Vol] 4.4 g/dL 13.0-16.5 [facility] Work Phone: Comment on above: CRITICAL VALUE VERIF IED. CALLED TO [id number]/09/22 1830 Kateryna Smart Workman.RESULTS READ BACK BY SAME . Blood lymphocytes/100 leukoc yteson 11-25-2021 Lymphocytes/100 WBC (Bld) 11.4 % 19-41 [facility] Work Phone: Blood manual differential co mment interpretation (narrative result)on 11-25-2021 Manual differential comment Ghassan (Bld) [Interp] SCANNED [facility] Work Phone: Comment on above: ANEMIA NOTED Blood monocytes/100 leukocyt eson 11-25-2021 Monocytes/100 WBC (Bld) 6.3 % 0-10 [facility] Work Phone: Blood platelet mean volumeon 11-25-2021 Platelet mean volume (Bld) [Entitic vol] 10.2 fL 6.2-12.0 [facility] Work Phone: Determination of erythrocyte mean corpuscular volume (MCV)on 11-25-2021 MCV (RBC) [Entitic vol] 71.6 fL 80-94 [facility] Work Phone: Hematocrit Auto (Bld) [Volum e fraction]on 11-25-2021 Hematocrit (Bld) [Volume fraction] 16.9 % 40-54 [facility] Work Phone: Hemoglobin in reticulocytes (mass per reticulocyte)on 11-25-2021 Hemoglobin (Reticulocytes) [Entitic mass] 15.0 pg 30-35 [facility] Work Phone: Hypochromatic red blood cell detectionon 11-25-2021 Hypochromia Ql (Bld) 1+ [facility] Work Phone: INR in Blood by Coagulation assayon 11-25-2021 INR Coag (Bld) [Relative time] 5.4 {INR} [facility] Work Phone: [phone] Comment on above: CRITICAL VALUE VERIF IED. CALLED TO [id number] Kateryna Horn.RESULTS READ BACK BY SAME . Iron measurement (mass/mass) on 11-25-2021 Iron (Unsp spec) [Mass/Mass] 10 ug/dL 65-175 [facility] Work Phone: [phone] Ketones Test strip Ql (U)on 11-25-2021 Ketones Ql (U) Negative Negative [facility] Work Phone: [phone] Laboratory - Chemistry and C hemistry - challengeon 11-25-2021 ALP [Catalytic activity/Vol] 54 U/L 45-117 [facility] Work Phone: [phone] ALT [Catalytic activity/Vol] 20 U/L 16-61 [facility] Work Phone: [phone] CO2 [Moles/Vol] 23.0 mmol/L 21.0-32.0 [facility] Work Phone: [phone] Globulin (S) [Mass/Vol] 3.1 g/dL 2.2-4.2 [facility] Work Phone: [phone] Urea nitrogen/Creatinine [Mass ratio] 16.7 mg/mg 10-20 [facility] Work Phone: [phone] Laboratory - Coagulationon 0 11-25-2021 PT Coag (PPP) [Time] 49.2 s 11.7-14.9 [facility] Work Phone: [phone] Laboratory - Hematology and Cell countson 11-25-2021 Erythrocyte distribution width (RBC) [Entitic vol] 48.7 fL 35.1-43.9 [facility] Work Phone: [phone] Erythrocyte distribution width (RBC) [Ratio] 18.6 % 11.6-14.6 [facility] Work Phone: [phone] Immature granulocytes/100 WBC (Bld) 0.600 % 0.0-0.9 [facility] Work Phone: [phone] Comment on above: IG% - Immature Granu locytes (promyelocytes, myelocytes and metamyelocytes) > 1% indicates that a LEFT SHIFT is Present. MCH (RBC) [Entitic mass] 18.6 pg 27.0-32.0 [facility] Work Phone: [phone] Nucleated RBC/100 WBC (Bld) [Ratio] 0.6 % 0-5 [facility] Work Phone: [phone] Lower GI hemoglobin IA Ql (S tl)on 11-25-2021 Stool Occult Blood (LACI) Positive [facility] Work Phone: [phone] MCHC Auto (RBC) [Mass/Vol]on 11-25-2021 MCHC (RBC) [Mass/Vol] 26.0 g/dL 32-36 [facility] Work Phone: [phone] Mucus LM Ql (Urine sed)on Mucus Ql (Urine sed) 0 SEEN /hpf [facility] Work Phone: [phone] Nitrite Test strip Ql (U)on 11-25-2021 Nitrite Ql (U) Negative Negative [facility] Work Phone: No Panel Informationon 11-25 Immature Reticulocyte Fraction 25.00 % 3.00-15.90 [facility] Work Phone: [phone] Reticulocyte Count 2.10 % 0.5-1.5 [facility] Work Phone: [phone] Estimated Creatinine Clearance Calc 44.86 ml/min [facility] Work Phone: [phone] Estimated GFR (MDRD) Amer 62 mL/min >60 [facility] Work Phone: [phone] Comment on above: GFR Calc Estimated GFR (MDRD) Non-Af Amer 51 mL/min >60 [facility] Work Phone: [phone] Comment on above: Non- GFR Calc Total Iron Binding Capacity 466 ug/dL 250-450 [facility] Work Phone: [phone] Platelets bldon 11-25-2021 Platelets (Bld) [#/Vol] 398 10*3/uL 150-450 [facility] Work Phone: Protein Test strip Ql (U)on 11-25-2021 Protein Ql (U) Negative Negative [facility] Work Phone: Review by pathologiston Pathologist review Ghassan (Unsp spec) [Interp] Lena gardner [facility] Work Phone: [phone] Pathologist review Ghassan (Unsp spec) [Interp] Reviewed [facility] Work Phone: [phone] Comment on above: Previous reported re sult: Lena gardner Edited by: [email or web address] on 11/26/21:1239Severe Microcytic anemia.Clinical correlation necessary.Sebastian Gonzalez M.D. 11/26/21 AMENDED REPORT 11/26/21 1239 PATH REV previously reported as: Lena gardner Serum or plasma albumin luis urement (mass/volume)on 11-25-2021 Albumin [Mass/Vol] 3.7 g/dL 3.2-5.0 [facility] Work Phone: [phone] Serum or plasma albumin/glob ulin mass ratioon 11-25-2021 Albumin/Globulin [Mass ratio] 1.2 {ratio} 0.9-2.4 [facility] Work Phone: [phone] Serum or plasma calcium luis urement (mass/volume)on 11-25-2021 Calcium [Mass/Vol] 8.2 mg/dL 8.5-10.1 [facility] Work Phone: [phone] Serum or plasma creatinine m easurement (mass/volume)on 11-25-2021 Creatinine [Mass/Vol] 1.44 mg/dL 0.70-1.30 [facility] Work Phone: Comment on above: The validity of the calculated GFR & GFRAA in patients over 70 years has not been determined. Clinical correlation is essential. Serum or plasma ferritin arlyn surement (mass/volume)on 11-25-2021 Ferritin [Mass/Vol] 5 ng/mL 26-388 [facility] Work Phone: [phone] Serum or plasma folate measu rement (mass/volume)on 11-25-2021 Folate [Mass/Vol] 12.90 ng/mL 3.1-55.4 [facility] Work Phone: Serum or plasma iron saturat ion measurement (mass fraction)on 11-25-2021 Iron saturation [Mass fraction] 2.1 % 15.0-55.0 [facility] Work Phone: Serum or plasma urea nitroge n measurement (mass/volume)on 11-25-2021 Urea nitrogen [Mass/Vol] 24 mg/dL 7-18 [facility] Work Phone: Squamous epithelial cells de tection in urine sediment by light microscopyon 11-25-2021 Epithelial cells.squamous LM Ql (Urine sed) 0 SEEN /hpf 0-5 [facility] Work Phone: Thin prep Papanicolaou smear with manual screeningon 11-25-2021 Thin prep Papanicolaou smear with manual screening 10 U/L 15-37 [facility] Work Phone: Thin prep Papanicolaou smear with manual screening 9 5-15 [facility] Work Phone: Urine blood detectionon 06-0 RBC Ql (U) 50 /ul Negative [facility] Work Phone: RBC Ql (U) 5-10 SEEN /hpf 0-5 [facility] Work Phone: Urine clarityon 11-25-2021 Clarity (U) Clear Clear [facility] Work Phone: Urine color determinationon 11-25-2021 Color (U) Straw Yellow [facility] Work Phone: Urine glucose detectionon Glucose Ql (U) Normal mg/dl Normal [facility] Work Phone: Urine leukocyte esterase det ection by dipstickon 11-25-2021 Leukocyte esterase Test strip Ql (U) Negative Negative [facility] Work Phone: Urine pHon 11-25-2021 pH (U) 7.0 [pH] 5.0 - 8.0 [facility] Work Phone: [phone] Urine sediment bacteria coun t by microscopy (number/high power field)on 11-25-2021 Bacteria LM.HPF (Urine sed) [#/Area] RARE /hpf None Seen [facility] Work Phone: Urine specific gravity measu rementon 11-25-2021 Specific gravity (U) [Rel density] 1.010 1.002-1.030 [facility] Work Phone: Urobilinogen Auto test strip Ql (U)on 11-25-2021 Urobilinogen Ql (U) Normal mg/dl Normal [facility] Work Phone: INR in Blood by Coagulation assayon 11-11-2021 INR Coag (Bld) [Relative time] 1.2 {INR} [facility] Laboratory - Coagulationon 0 11-11-2021 PT Coag (PPP) [Time] 15.1 s 11.7-14.9 [facility] Work Phone: No Panel Informationon 11-08 DLCO (ml/min/mmHg) 7.15 ml/min/mmHg [facility] DLCO/VA (ml/min/mmHg/L) 1.63 ml/min/mmHg/L [facility] RWH14-04% PRE (L/S) 0.30 L/S [facility] FEV1 PRE (L) 0.85 L [facility] FEV1/FVC PRE (%) 0.38 % [facility] FVC PRE (L) 2.23 L [facility] PEF PRE (L/S) 1.51 L/S [facility] VA (L) 4.38 L [facility] CNCOon 10-18-2021 CNCO Letter Text Letter Text Normal [facility] INR FINGERSTICK B/Oon 2021 INR Coag (Bld) [Relative time] 2.2 EXT [facility] Quality Check No [facility] Absolute lymphocyte counton 10-08-2021 Lymphocytes Auto (Unsp spec) [#/Vol] 1.26 10*3/uL 0.83-4.51 [facility] Work Phone: Basophil percentageon 2021 Basophil percentage 10-25 SEEN /hpf 0-5 [facility] Work Phone: Basophils/100 WBC (Bld) 1.3 % 0-1 [facility] Work Phone: Bilirubin [Mass/Vol] 0.30 mg/dL 0.20-1.00 [facility] Work Phone: Comment on above: For patients on eltr ombopag therapy, use of Dimension [place] TBIL is not recommended. Chloride [Moles/Vol] 105 mmol/L 98-107 [facility] Work Phone: Eosinophils/100 WBC (Bld) 0.5 % 0-5 [facility] Work Phone: Glucose [Mass/Vol] 99 mg/dL 74-106 [facility] Work Phone: Neutrophils (Bld) [#/Vol] 4.3 10*3/uL 2.0-7.7 [facility] Work Phone: Neutrophils/100 WBC (Bld) 70.4 % 47-70 [facility] Work Phone: Potassium [Moles/Vol] 3.7 mmol/L 3.5-5.1 [facility] Work Phone: Protein [Mass/Vol] 7.5 g/dL 6.4-8.2 [facility] Work Phone: Sodium [Moles/Vol] 138 mmol/L 136-145 [facility] Work Phone: WBC (Bld) [#/Vol] 6.1 10*3/uL 4.4-11.0 [facility] Work Phone: Bilirubin Test strip Ql (U)o n 10-08-2021 Bilirubin Ql (U) Negative Negative [facility] Work Phone: Blood erythrocytes count (nu mber/volume)on 10-08-2021 RBC (Bld) [#/Vol] 3.87 10*6/uL 4.6-6.2 [facility] Work Phone: Blood hemoglobin measurement (mass/volume)on 10-08-2021 Hemoglobin (Bld) [Mass/Vol] 8.3 g/dL 13.0-16.5 [facility] Work Phone: Blood lymphocytes/100 leukoc yteson 10-08-2021 Lymphocytes/100 WBC (Bld) 20.5 % 19-41 [facility] Work Phone: [phone] Blood monocytes/100 leukocyt eson 10-08-2021 Monocytes/100 WBC (Bld) 7.0 % 0-10 [facility] Work Phone: Blood platelet mean volumeon 10-08-2021 Platelet mean volume (Bld) [Entitic vol] 10.1 fL 6.2-12.0 [facility] Work Phone: Determination of erythrocyte mean corpuscular volume (MCV)on 10-08-2021 MCV (RBC) [Entitic vol] 74.7 fL 80-94 [facility] Work Phone: Hematocrit Auto (Bld) [Volum e fraction]on 10-08-2021 Hematocrit (Bld) [Volume fraction] 28.9 % 40-54 [facility] Work Phone: INR in Blood by Coagulation assayon 10-08-2021 INR Coag (Bld) [Relative time] 2.4 {INR} [facility] Work Phone: Ketones Test strip Ql (U)on 10-08-2021 Ketones Ql (U) Negative Negative [facility] Work Phone: Laboratory - Chemistry and C hemistry - challengeon 10-08-2021 ALP [Catalytic activity/Vol] 74 U/L 45-117 [facility] Work Phone: ALT [Catalytic activity/Vol] 21 U/L 16-61 [facility] Work Phone: [phone] CO2 [Moles/Vol] 30.0 mmol/L 21.0-32.0 [facility] Work Phone: Globulin (S) [Mass/Vol] 3.7 g/dL 2.2-4.2 [facility] Work Phone: Lipase [Catalytic activity/Vol] 93 U/L 73-393 [facility] Work Phone: [phone] Urea nitrogen/Creatinine [Mass ratio] 20.2 mg/mg 10-20 [facility] Work Phone: [phone] Laboratory - Coagulationon 0 10-08-2021 PT Coag (PPP) [Time] 25.7 s 11.7-14.9 [facility] Work Phone: Laboratory - Hematology and Cell countson 10-08-2021 Erythrocyte distribution width (RBC) [Entitic vol] 50.4 fL 35.1-43.9 [facility] Work Phone: [phone] Erythrocyte distribution width (RBC) [Ratio] 18.6 % 11.6-14.6 [facility] Work Phone: [phone] Immature granulocytes/100 WBC (Bld) 0.300 % 0.0-0.9 [facility] Work Phone: [phone] Comment on above: IG% - Immature Granu locytes (promyelocytes, myelocytes and metamyelocytes) > 1% indicates that a LEFT SHIFT is Present. MCH (RBC) [Entitic mass] 21.4 pg 27.0-32.0 [facility] Work Phone: [phone] Nucleated RBC/100 WBC (Bld) [Ratio] 0 % 0-5 [facility] Work Phone: [phone] MCHC Auto (RBC) [Mass/Vol]on 10-08-2021 MCHC (RBC) [Mass/Vol] 28.7 g/dL 32-36 [facility] Work Phone: [phone] Mucus LM Ql (Urine sed)on Mucus Ql (Urine sed) 0 SEEN /hpf [facility] Work Phone: [phone] Nitrite Test strip Ql (U)on 10-08-2021 Nitrite Ql (U) Positive Negative [facility] Work Phone: [phone] Panel Informationon 10-08 Estimated Creatinine Clearance Calc 68.72 ml/min [facility] Work Phone: Estimated GFR (MDRD) Amer 101 mL/min >60 [facility] Work Phone: Comment on above: GFR Calc Estimated GFR (MDRD) Non-Af Amer 84 mL/min >60 [facility] Work Phone: Comment on above: Non- GFR Calc Platelets bldon 10-08-2021 Platelets (Bld) [#/Vol] 349 10*3/uL 150-450 [facility] Work Phone: Protein Test strip Ql (U)on 10-08-2021 Protein Ql (U) 100 mg/dl Negative [facility] Work Phone: Serum or plasma albumin luis urement (mass/volume)on 10-08-2021 Albumin [Mass/Vol] 3.8 g/dL 3.2-5.0 [facility] Work Phone: Serum or plasma albumin/glob ulin mass ratioon 10-08-2021 Albumin/Globulin [Mass ratio] 1.0 {ratio} 0.9-2.4 [facility] Work Phone: [phone] Serum or plasma calcium luis urement (mass/volume)on 10-08-2021 Calcium [Mass/Vol] 9.1 mg/dL 8.5-10.1 [facility] Work Phone: Serum or plasma creatinine m easurement (mass/volume)on 10-08-2021 Creatinine [Mass/Vol] 0.94 mg/dL 0.70-1.30 [facility] Work Phone: Comment on above: The validity of the calculated GFR & GFRAA in patients over 70 years has not been determined. Clinical correlation is essential. Serum or plasma urea nitroge n measurement (mass/volume)on 10-08-2021 Urea nitrogen [Mass/Vol] 19 mg/dL 7-18 [facility] Work Phone: [phone] Squamous epithelial cells de tection in urine sediment by light microscopyon 10-08-2021 Epithelial cells.squamous LM Ql (Urine sed) 0-5 SEEN /hpf 0-5 [facility] Work Phone: Thin prep Papanicolaou smear with manual screeningon 10-08-2021 Thin prep Papanicolaou smear with manual screening 12 U/L 15-37 [facility] Work Phone: Thin prep Papanicolaou smear with manual screening 3 5-15 [facility] Work Phone: Urine blood detectionon 09-18 RBC Ql (U) 10 /ul Negative [facility] Work Phone: RBC Ql (U) 0 SEEN /hpf 0-5 [facility] Work Phone: [phone] Urine clarityon 10-08-2021 Clarity (U) Sl. Cloudy Clear [facility] Work Phone: Urine color determinationon 10-08-2021 Color (U) Yellow Yellow [facility] Work Phone: Urine glucose detectionon Glucose Ql (U) Normal mg/dl Normal [facility] Work Phone: Urine leukocyte esterase det ection by dipstickon 10-08-2021 Leukocyte esterase Test strip Ql (U) 500 /ul Negative [facility] Work Phone: Urine pHon 10-08-2021 pH (U) 6.5 [pH] 5.0 - 8.0 [facility] Work Phone: Urine sediment bacteria coun t by microscopy (number/high power field)on 10-08-2021 Bacteria LM.HPF (Urine sed) [#/Area] 3 /[HPF] None Seen [facility] Work Phone: Urine specific gravity measu rementon 10-08-2021 Specific gravity (U) [Rel density] 1.010 1.002-1.030 [facility] Work Phone: Urobilinogen Auto test strip Ql (U)on 10-08-2021 Urobilinogen Ql (U) Normal mg/dl Normal [facility] Work Phone: Absolute lymphocyte counton 09-22-2021 Lymphocytes Auto (Unsp spec) [#/Vol] 1.51 10*3/uL 0.83-4.51 [facility] Work Phone: Basophil percentageon 2021 Basophils/100 WBC (Bld) 2.1 % 0-1 [facility] Work Phone: [phone] Eosinophils/100 WBC (Bld) 5.1 % 0-5 [facility] Work Phone: [phone] Neutrophils (Bld) [#/Vol] 3.7 10*3/uL 2.0-7.7 [facility] Work Phone: [phone] Neutrophils/100 WBC (Bld) 60.6 % 47-70 [facility] Work Phone: [phone] WBC (Bld) [#/Vol] 6.1 10*3/uL 4.4-11.0 [facility] Work Phone: [phone] Blood erythrocytes count (nu mber/volume)on 09-22-2021 RBC (Bld) [#/Vol] 4.09 10*6/uL 4.6-6.2 [facility] Work Phone: [phone] Blood hemoglobin measurement (mass/volume)on 09-22-2021 Hemoglobin (Bld) [Mass/Vol] 9.1 g/dL 13.0-16.5 [facility] Work Phone: [phone] Blood lymphocytes/100 leukoc yteson 09-22-2021 Lymphocytes/100 WBC (Bld) 24.8 % 19-41 [facility] Work Phone: [phone] Blood monocytes/100 leukocyt eson 09-22-2021 Monocytes/100 WBC (Bld) 6.9 % 0-10 [facility] Work Phone: Blood platelet mean volumeon 09-22-2021 Platelet mean volume (Bld) [Entitic vol] 9.9 fL 6.2-12.0 [facility] Work Phone: Determination of erythrocyte mean corpuscular volume (MCV)on 09-22-2021 MCV (RBC) [Entitic vol] 77.5 fL 80-94 [facility] Work Phone: [phone] Hematocrit Auto (Bld) [Volum e fraction]on 09-22-2021 Hematocrit (Bld) [Volume fraction] 31.7 % 40-54 [facility] Work Phone: [phone] Laboratory - Hematology and Cell countson 09-22-2021 Erythrocyte distribution width (RBC) [Entitic vol] 56.2 fL 35.1-43.9 [facility] Work Phone: [phone] Erythrocyte distribution width (RBC) [Ratio] 19.9 % 11.6-14.6 [facility] Work Phone: [phone] Immature granulocytes/100 WBC (Bld) 0.500 % 0.0-0.9 [facility] Work Phone: [phone] Comment on above: IG% - Immature Granu locytes (promyelocytes, myelocytes and metamyelocytes) > 1% indicates that a LEFT SHIFT is Present. MCH (RBC) [Entitic mass] 22.2 pg 27.0-32.0 [facility] Work Phone: [phone] Nucleated RBC/100 WBC (Bld) [Ratio] 0 % 0-5 [facility] Work Phone: [phone] MCHC Auto (RBC) [Mass/Vol]on 09-22-2021 MCHC (RBC) [Mass/Vol] 28.7 g/dL 32-36 [facility] Work Phone: [phone] Platelets bldon 09-22-2021 Platelets (Bld) [#/Vol] 351 10*3/uL 150-450 [facility] Work Phone: CNPNon 09-21-2021 QI Telephone ([id number]) MARIELAPEDRO PABLO CASTANEDA Shannan ([id number]) 1950 M T Date Time Provider Department [...] Date Reviewed: 09/15/2021 Reviewed by: Anjel Braga APRN.[employer] - Fully Assessed Reason for Visit: Appointment [...] by mouth once daily. - Back Brace mis Rigid back brace for compression Fx L3 support. - clopidogrel (PLAVIX) 75 mg tablet Take 1 tablet by mouth once daily. - diclofenac sodium (VOLTAREN) 1 % topical gel Apply 2 g to affected area four times daily. - >Nebulizer For Home Nebulizer for home use. Diagnosis: Pulmonary emphysema, unspecified emphysema type (HCC) [J43.9] - COMPOUNDED PRESCRIPTION Aerosol supplies Dx:J44.1 NPI#[id number] - COMPOUNDED PRESCRIPTION NEBULIZER FOR HOME USE. [...] left fem (more content not included)... Normal [facility] Absolute lymphocyte counton 09-17-2021 Lymphocytes Auto (Unsp spec) [#/Vol] 1.19 10*3/uL 0.83-4.51 [facility] Work Phone: Basophil percentageon 2021 Basophil percentage 0-5 SEEN /hpf 0-5 [facility] Work Phone: Basophils/100 WBC (Bld) 1.6 % 0-1 [facility] Work Phone: Bilirubin [Mass/Vol] 0.30 mg/dL 0.20-1.00 [facility] Work Phone: Comment on above: For patients on eltr ombopag therapy, use of Dimension [place] TBIL is not recommended. Chloride [Moles/Vol] 104 mmol/L 98-107 [facility] Work Phone: Eosinophils/100 WBC (Bld) 1.1 % 0-5 [facility] Work Phone: [phone] Glucose [Mass/Vol] 100 mg/dL 74-106 [facility] Work Phone: Comment on above: Fasting Glucose resu lt from 100 to 125 mg/dL suggests IMPAIRED HOMEOSTASIS per A.D.A. criteria. Neutrophils (Bld) [#/Vol] 5.2 10*3/uL 2.0-7.7 [facility] Work Phone: Neutrophils/100 WBC (Bld) 73.0 % 47-70 [facility] Work [phone] Potassium [Moles/Vol] 4.2 mmol/L 3.5-5.1 [facility] Work Phone: Protein [Mass/Vol] 7.3 g/dL 6.4-8.2 [facility] Work Phone: Sodium [Moles/Vol] 136 mmol/L 136-145 [facility] Work Phone: WBC (Bld) [#/Vol] 7.1 10*3/uL 4.4-11.0 [facility] Work Phone: Bilirubin Test strip Ql (U)o n 09-17-2021 Bilirubin Ql (U) Negative Negative [facility] Work Phone: Blood erythrocytes count (nu mber/volume)on 09-17-2021 RBC (Bld) [#/Vol] 3.50 10*6/uL 4.6-6.2 [facility] Work Phone: Blood hemoglobin measurement (mass/volume)on 09-17-2021 Hemoglobin (Bld) [Mass/Vol] 7.9 g/dL 13.0-16.5 [facility] Work Phone: Blood lymphocytes/100 leukoc yteson 09-17-2021 Lymphocytes/100 WBC (Bld) 16.9 % 19-41 [facility] Work Phone: Blood monocytes/100 leukocyt eson 09-17-2021 Monocytes/100 WBC (Bld) 7.1 % 0-10 [facility] Work Phone: Blood platelet mean volumeon 09-17-2021 Platelet mean volume (Bld) [Entitic vol] 9.5 fL 6.2-12.0 [facility] Work Phone: Determination of erythrocyte mean corpuscular volume (MCV)on 09-17-2021 MCV (RBC) [Entitic vol] 75.1 fL 80-94 [facility] Work Phone: Hematocrit Auto (Bld) [Volum e fraction]on 09-17-2021 Hematocrit (Bld) [Volume fraction] 26.3 % 40-54 [facility] Work Phone: INR in Blood by Coagulation assayon 09-17-2021 INR Coag (Bld) [Relative time] 1.3 {INR} [facility] Work Phone: Ketones Test strip Ql (U)on 09-17-2021 Ketones Ql (U) Negative Negative [facility] Work Phone: Laboratory - Chemistry and C hemistry - challengeon 09-17-2021 ALP [Catalytic activity/Vol] 79 U/L 45-117 [facility] Work Phone: ALT [Catalytic activity/Vol] 36 U/L 16-61 [facility] Work Phone: CO2 [Moles/Vol] 25.0 mmol/L 21.0-32.0 [facility] Work Phone: Globulin (S) [Mass/Vol] 3.5 g/dL 2.2-4.2 [facility] Work Phone: [phone] Lipase [Catalytic activity/Vol] 102 U/L 73-393 [facility] Work Phone: [phone] Urea nitrogen/Creatinine [Mass ratio] 12.5 mg/mg 10-20 [facility] Work Phone: [phone] Laboratory - Coagulationon 0 09-17-2021 PT Coag (PPP) [Time] 15.4 s 11.7-14.9 [facility] Work Phone: [phone] Laboratory - Hematology and Cell countson 09-17-2021 Erythrocyte distribution width (RBC) [Entitic vol] 53.1 fL 35.1-43.9 [facility] Work Phone: [phone] Erythrocyte distribution width (RBC) [Ratio] 19.6 % 11.6-14.6 [facility] Work Phone: [phone] Immature granulocytes/100 WBC (Bld) 0.300 % 0.0-0.9 [facility] Work Phone: [phone] Comment on above: IG% - Immature Granu locytes (promyelocytes, myelocytes and metamyelocytes) > 1% indicates that a LEFT SHIFT is Present. MCH (RBC) [Entitic mass] 22.6 pg 27.0-32.0 [facility] Work Phone: [phone] Nucleated RBC/100 WBC (Bld) [Ratio] 0 % 0-5 [facility] Work Phone: [phone] MCHC Auto (RBC) [Mass/Vol]on 09-17-2021 MCHC (RBC) [Mass/Vol] 30.0 g/dL 32-36 [facility] Work Phone: [phone] Mucus LM Ql (Urine sed)on Mucus Ql (Urine sed) 0 SEEN /hpf [facility] Work Phone: [phone] Nitrite Test strip Ql (U)on 09-17-2021 Nitrite Ql (U) Positive Negative [facility] Work Phone: [phone] Panel Informationon 09-17 Estimated Creatinine Clearance Calc 57.68 ml/min [facility] Work Phone: Estimated GFR (MDRD) Amer 83 mL/min >60 [facility] Work Phone: [phone] Comment on above: GFR Calc Estimated GFR (MDRD) Non-Af Amer 68 mL/min >60 [facility] Work Phone: Comment on above: Non- GFR Calc Platelets bldon 09-17-2021 Platelets (Bld) [#/Vol] 342 10*3/uL 150-450 [facility] Work Phone: Protein Test strip Ql (U)on 09-17-2021 Protein Ql (U) 15 mg/dl Negative [facility] Work Phone: Serum or plasma albumin luis urement (mass/volume)on 09-17-2021 Albumin [Mass/Vol] 3.8 g/dL 3.2-5.0 [facility] Work Phone: [phone] Serum or plasma albumin/glob ulin mass ratioon 09-17-2021 Albumin/Globulin [Mass ratio] 1.1 {ratio} 0.9-2.4 [facility] Work Phone: Serum or plasma calcium luis urement (mass/volume)on 09-17-2021 Calcium [Mass/Vol] 8.7 mg/dL 8.5-10.1 [facility] Work Phone: Serum or plasma creatinine m easurement (mass/volume)on 09-17-2021 Creatinine [Mass/Vol] 1.12 mg/dL 0.70-1.30 [facility] Work Phone: Comment on above: The validity of the calculated GFR & GFRAA in patients over 70 years has not been determined. Clinical correlation is essential. Serum or plasma urea nitroge n measurement (mass/volume)on 09-17-2021 Urea nitrogen [Mass/Vol] 14 mg/dL 7-18 [facility] Work Phone: Squamous epithelial cells de tection in urine sediment by light microscopyon 09-17-2021 Epithelial cells.squamous LM Ql (Urine sed) 0-5 SEEN /hpf 0-5 [facility] Work Phone: Thin prep Papanicolaou smear with manual screeningon 09-17-2021 Thin prep Papanicolaou smear with manual screening 19 U/L 15-37 [facility] Work Phone: Thin prep Papanicolaou smear with manual screening 7 5-15 [facility] Work Phone: Urine blood detectionon 04-0 RBC Ql (U) Negative Negative [facility] Work Phone: RBC Ql (U) 0 SEEN /hpf 0-5 [facility] Work Phone: Urine clarityon 09-17-2021 Clarity (U) Clear Clear [facility] Work Phone: Urine color determinationon 09-17-2021 Color (U) Yellow Yellow [facility] Work Phone: Urine glucose detectionon Glucose Ql (U) Normal mg/dl Normal [facility] Work Phone: Urine leukocyte esterase det ection by dipstickon 09-17-2021 Leukocyte esterase Test strip Ql (U) 25 /ul Negative [facility] Work Phone: Urine pHon 09-17-2021 pH (U) 6.0 [pH] 5.0 - 8.0 [facility] Work Phone: Urine sediment bacteria coun t by microscopy (number/high power field)on 09-17-2021 Bacteria LM.HPF (Urine sed) [#/Area] 1 /[HPF] None Seen [facility] Work Phone: Urine specific gravity measu rementon 09-17-2021 Specific gravity (U) [Rel density] 1.010 1.002-1.030 [facility] Work Phone: Urobilinogen Auto test strip Ql (U)on 09-17-2021 Urobilinogen Ql (U) Normal mg/dl Normal [facility] Work Phone: PT panel Coag (PPP)on 2021 INR Coag (Bld) [Relative time] 2.1 (EXT) 2.0 - 3.0 [facility] UA DIP, URINE (POC)on 2021 BILIRUBIN UA (POCT) Negative Negative [facility] CLARITY UA (POCT) Clear [facility] COLOR UA (POCT) Yellow [facility] GLUCOSE UA (POCT) Negative Negative mg/dL [facility] HEMOGLOBIN/BLOOD UA (POCT) Trace-lysed Abnormal Negative [facility] KETONE UA (POCT) Negative Negative mg/dL [facility] LEUKOCYTES UA (POCT) Small Abnormal Negative [facility] NITRITE UA (POCT) Positive Abnormal Negative [facility] PH UA (POCT) 5.5 4.5 - 8.0 [facility] Protein Ql (U) 100 mg/dL Abnormal Negative mg/dL [facility] SPECIFIC GRAVITY UA (POCT) 1.020 1.005 - 1.030 [facility] UROBILINOGEN UA (POCT) 0.2 E.U./dL Malaika l E.U./dL [facility] Glucose Glucometer (BldC) [M ass/Vol]on 08-21-2021 Glucose [Mass/Vol] 102 mg/dL 74-106 [facility] Work Phone: Comment on above: MANAGEMENT OF PATIEN T CARE PER NURSING PROTOCOL INR in Blood by Coagulation assayon 08-21-2021 INR Coag (Bld) [Relative time] 1.2 {INR} [facility] Work Phone: Laboratory - Coagulationon 0 08-21-2021 PT Coag (PPP) [Time] 14.9 s 11.7-14.9 [facility] Work Phone: Absolute lymphocyte counton 08-20-2021 Lymphocytes Auto (Unsp spec) [#/Vol] 0.77 10*3/uL 0.83-4.51 [facility] Work Phone: Basophil percentageon 2021 Basophils/100 WBC (Bld) 0.8 % 0-1 [facility] Work Phone: Bilirubin [Mass/Vol] 0.70 mg/dL 0.20-1.00 [facility] Work Phone: Comment on above: For patients on eltr ombopag therapy, use of Dimension [place] TBIL is not recommended. Chloride [Moles/Vol] 107 mmol/L 98-107 [facility] Work Phone: Eosinophils/100 WBC (Bld) 2.2 % 0-5 [facility] Work Phone: [phone] Glucose [Mass/Vol] 99 mg/dL 74-106 [facility] Work Phone: Neutrophils (Bld) [#/Vol] 4.9 10*3/uL 2.0-7.7 [facility] Work Phone: Neutrophils/100 WBC (Bld) 77.2 % 47-70 [facility] Work Phone: Potassium [Moles/Vol] 3.7 mmol/L 3.5-5.1 [facility] Work Phone: Protein [Mass/Vol] 6.2 g/dL 6.4-8.2 [facility] Work Phone: Sodium [Moles/Vol] 139 mmol/L 136-145 [facility] Work Phone: WBC (Bld) [#/Vol] 6.3 10*3/uL 4.4-11.0 [facility] Work Phone: Blood erythrocytes count (nu mber/volume)on 08-20-2021 RBC (Bld) [#/Vol] 3.72 10*6/uL 4.6-6.2 [facility] Work Phone: Blood hemoglobin measurement (mass/volume)on 08-20-2021 Hemoglobin (Bld) [Mass/Vol] 7.8 g/dL 13.0-16.5 [facility] Work Phone: Blood lymphocytes/100 leukoc yteson 08-20-2021 Lymphocytes/100 WBC (Bld) 12.2 % 19-41 [facility] Work Phone: Blood monocytes/100 leukocyt eson 08-20-2021 Monocytes/100 WBC (Bld) 6.8 % 0-10 [facility] Work Phone: Blood platelet mean volumeon 08-20-2021 Platelet mean volume (Bld) [Entitic vol] 9.7 fL 6.2-12.0 [facility] Work Phone: [phone] Determination of erythrocyte mean corpuscular volume (MCV)on 08-20-2021 MCV (RBC) [Entitic vol] 72.8 fL 80-94 [facility] Work Phone: [phone] Hematocrit Auto (Bld) [Volum e fraction]on 08-20-2021 Hematocrit (Bld) [Volume fraction] 27.1 % 40-54 [facility] [facility] Work Phone: Laboratory - Chemistry and C hemistry - challengeon 08-20-2021 ALP [Catalytic activity/Vol] 224 U/L 45-117 [facility] Work Phone: [phone] ALT [Catalytic activity/Vol] 335 U/L 16-61 [facility] Work Phone: [phone] CO2 [Moles/Vol] 27.0 mmol/L 21.0-32.0 [facility] Work Phone: Globulin (S) [Mass/Vol] 3.5 g/dL 2.2-4.2 [facility] Work Phone: [phone] Urea nitrogen/Creatinine [Mass ratio] 11.9 mg/mg 10-20 [facility] Work Phone: [phone] Laboratory - Hematology and Cell countson 08-20-2021 Erythrocyte distribution width (RBC) [Entitic vol] 50.8 fL 35.1-43.9 [facility] Work Phone: [phone] Erythrocyte distribution width (RBC) [Ratio] 19.5 % 11.6-14.6 [facility] Work Phone: [phone] Immature granulocytes/100 WBC (Bld) 0.800 % 0.0-0.9 [facility] Work Phone: [phone] Comment on above: IG% - Immature Granu locytes (promyelocytes, myelocytes and metamyelocytes) > 1% indicates that a LEFT SHIFT is Present. MCH (RBC) [Entitic mass] 21.0 pg 27.0-32.0 [facility] Work Phone: Nucleated RBC/100 WBC (Bld) [Ratio] 0 % 0-5 [facility] Work Phone: [phone] MCHC Auto (RBC) [Mass/Vol]on 08-20-2021 MCHC (RBC) [Mass/Vol] 28.8 g/dL 32-36 [facility] Work Phone: No Panel Informationon 08-20 Estimated Creatinine Clearance Calc 63.96 ml/min [facility] Work Phone: [phone] Estimated GFR (MDRD) Amer 93 mL/min >60 [facility] Work Phone: [phone] Comment on above: GFR Calc Estimated GFR (MDRD) Non-Af Amer 77 mL/min >60 [facility] Work Phone: [phone] Comment on above: Non- GFR Calc Platelets bldon 08-20-2021 Platelets (Bld) [#/Vol] 409 10*3/uL 150-450 [facility] Work Phone: [phone] Serum or plasma albumin luis urement (mass/volume)on 08-20-2021 Albumin [Mass/Vol] 2.7 g/dL 3.2-5.0 [facility] Work Phone: [phone] Serum or plasma albumin/glob ulin mass ratioon 08-20-2021 Albumin/Globulin [Mass ratio] 0.8 {ratio} 0.9-2.4 [facility] Work Phone: [phone] Serum or plasma calcium luis urement (mass/volume)on 08-20-2021 Calcium [Mass/Vol] 7.9 mg/dL 8.5-10.1 [facility] Work Phone: [phone] Serum or plasma creatinine m easurement (mass/volume)on 08-20-2021 Creatinine [Mass/Vol] 1.01 mg/dL 0.70-1.30 [facility] Work Phone: Comment on above: The validity of the calculated GFR & GFRAA in patients over 70 years has not been determined. Clinical correlation is essential. Serum or plasma urea nitroge n measurement (mass/volume)on 08-20-2021 Urea nitrogen [Mass/Vol] 12 mg/dL 7-18 [facility] Work Phone: Thin prep Papanicolaou smear with manual screeningon 08-20-2021 Thin prep Papanicolaou smear with manual screening 150 U/L 15-37 [facility] Work Phone: [phone] Thin prep Papanicolaou smear with manual screening 5 5-15 [facility] Work Phone: Laboratory - Coagulationon 0 08-19-2021 aPTT Coag (Bld) [Time] 37.1 s 24.1-36.2 [place] Work Phone: No Panel Informationon 08-19 Troponin I High Sensitivity 15 pg/mL 3.0-78.0 [facility] Work Phone: Comment on above: Please Note: New [place] t Units and Gender Specific Reference Ranges. For more information see Policy Stat Procedure [place] High Sensitivity Troponin (TNIH) and attachments. Whole blood hemoglobin A1c/t otal hemoglobin ratio (mass fraction)on 08-19-2021 HbA1c (Bld) [Mass fraction] 6.0 % 3.8-5.6 [facility] Work Phone: Comment on above: Normal < 5.7 % Predi abetic 5.7 - 6.4 % Diabetic >or= 6.5 % Please note range changes. Blood manual differential co mment interpretation (narrative result)on 08-18-2021 Manual differential comment Ghassan (Bld) [Interp] SCANNED [facility] Work Phone: Comment on above: LYMPHOPENIA NOTED Direct bilirubinon 2 Bilirubin.direct [Mass/Vol] 0.89 mg/dL 0.00-0.30 [facility] Work Phone: [phone] Laboratory - Chemistry and C hemistry - challengeon 03-02-2022 Lipase [Catalytic activity/Vol] 134 U/L 73-393 [facility] Work Phone: Absolute lymphocyte counton 08-12-2021 Lymphocytes Auto (Unsp spec) [#/Vol] 0.44 10*3/uL 0.83-4.51 [facility] Work [phone] Basophil percentageon 2021 Basophils/100 WBC (Bld) 0.6 % 0-1 [facility] Work Phone: Bilirubin [Mass/Vol] 0.30 mg/dL 0.20-1.00 [facility] Work [phone] Comment on above: For patients on eltr ombopag therapy, use of Dimension [place] TBIL is not recommended. Chloride [Moles/Vol] 101 mmol/L 98-107 [facility] Work Phone: Eosinophils/100 WBC (Bld) 0.0 % 0-5 [facility] Work Phone: Glucose [Mass/Vol] 162 mg/dL 74-106 [facility] Work Phone: Comment on above: Fasting Glucose resu lt greater than or equal to 126 mg/dL suggests DIABETES MELLITUS per A.D.A. criteria. Neutrophils (Bld) [#/Vol] 9.7 10*3/uL 2.0-7.7 [facility] Work Phone: Neutrophils/100 WBC (Bld) 93.3 % 47-70 [facility] Work Phone: Potassium [Moles/Vol] 3.8 mmol/L 3.5-5.1 [facility] Work Phone: Protein [Mass/Vol] 8.1 g/dL 6.4-8.2 [facility] Work Phone: Sodium [Moles/Vol] 135 mmol/L 136-145 [facility] Work Phone: WBC (Bld) [#/Vol] 10.4 10*3/uL 4.4-11.0 [facility] Work Phone: Blood erythrocytes count (nu mber/volume)on 08-12-2021 RBC (Bld) [#/Vol] 4.84 10*6/uL 4.6-6.2 [facility] Work Phone: Blood hemoglobin measurement (mass/volume)on 08-12-2021 Hemoglobin (Bld) [Mass/Vol] 10.4 g/dL 13.0-16.5 [facility] Work Phone: [phone] Blood lymphocytes/100 leukoc yteson 08-12-2021 Lymphocytes/100 WBC (Bld) 4.2 % 19-41 [facility] Work Phone: [phone] Blood monocytes/100 leukocyt eson 08-12-2021 Monocytes/100 WBC (Bld) 1.4 % 0-10 [facility] Work Phone: Blood platelet mean volumeon 08-12-2021 Platelet mean volume (Bld) [Entitic vol] 10.3 fL 6.2-12.0 [facility] Work Phone: Determination of erythrocyte mean corpuscular volume (MCV)on 08-12-2021 MCV (RBC) [Entitic vol] 74.8 fL 80-94 [facility] Work Phone: Hematocrit Auto (Bld) [Volum e fraction]on 08-12-2021 Hematocrit (Bld) [Volume fraction] 36.2 % 40-54 [facility] Work Phone: INR in Blood by Coagulation assayon 08-12-2021 INR Coag (Bld) [Relative time] 2.1 {INR} [facility] Work Phone: Laboratory - Chemistry and C hemistry - challengeon 08-12-2021 ALP [Catalytic activity/Vol] 70 U/L 45-117 [facility] Work Phone: ALT [Catalytic activity/Vol] 19 U/L 16-61 [facility] Work Phone: CO2 [Moles/Vol] 26.0 mmol/L 21.0-32.0 [facility] Work Phone: [phone] Globulin (S) [Mass/Vol] 3.9 g/dL 2.2-4.2 [facility] Work Phone: [phone] Lipase [Catalytic activity/Vol] 46 U/L 73-393 [facility] Work Phone: [phone] Urea nitrogen/Creatinine [Mass ratio] 9.0 mg/mg 10-20 [facility] Work Phone: [phone] Laboratory - Coagulationon 0 08-12-2021 PT Coag (PPP) [Time] 23.1 s 11.7-14.9 [facility] Work Phone: [phone] Laboratory - Hematology and Cell countson 08-12-2021 Anisocytosis Ql (Bld) 1+ [facility] Work Phone: [phone] Erythrocyte distribution width (RBC) [Entitic vol] 50.2 fL 35.1-43.9 [facility] Work Phone: [phone] Erythrocyte distribution width (RBC) [Ratio] 18.7 % 11.6-14.6 [facility] Work Phone: [phone] Immature granulocytes/100 WBC (Bld) 0.500 % 0.0-0.9 [facility] Work Phone: [phone] Comment on above: IG% - Immature Granu locytes (promyelocytes, myelocytes and metamyelocytes) > 1% indicates that a LEFT SHIFT is Present. MCH (RBC) [Entitic mass] 21.5 pg 27.0-32.0 [facility] Work Phone: [phone] Nucleated RBC/100 WBC (Bld) [Ratio] 0 % 0-5 [facility] Work Phone: [phone] MCHC Auto (RBC) [Mass/Vol]on 08-12-2021 MCHC (RBC) [Mass/Vol] 28.7 g/dL 32-36 [facility] Work Phone: No Panel Informationon 08-12 Estimated Creatinine Clearance Calc 58.20 ml/min [facility] Work Phone: [phone] Estimated GFR (MDRD) Amer 84 mL/min >60 [facility] Work Phone: Comment on above: GFR Calc Estimated GFR (MDRD) Non-Af Amer 69 mL/min >60 [facility] Work Phone: Comment on above: Non- GFR Calc Platelets bldon 08-12-2021 Platelets (Bld) [#/Vol] 401 10*3/uL 150-450 [facility] Work Phone: [phone] Serum or plasma albumin luis urement (mass/volume)on 08-12-2021 Albumin [Mass/Vol] 4.2 g/dL 3.2-5.0 [facility] Work Phone: [phone] Serum or plasma albumin/glob ulin mass ratioon 08-12-2021 Albumin/Globulin [Mass ratio] 1.1 {ratio} 0.9-2.4 [facility] Work Phone: [phone] Serum or plasma calcium luis urement (mass/volume)on 08-12-2021 Calcium [Mass/Vol] 9.4 mg/dL 8.5-10.1 [facility] Work Phone: [phone] Serum or plasma creatinine m easurement (mass/volume)on 08-12-2021 Creatinine [Mass/Vol] 1.11 mg/dL 0.70-1.30 [facility] Work Phone: Comment on above: The validity of the calculated GFR & GFRAA in patients over 70 years has not been determined. Clinical correlation is essential. Serum or plasma urea nitroge n measurement (mass/volume)on 08-12-2021 Urea nitrogen [Mass/Vol] 10 mg/dL 7-18 [facility] Work Phone: [phone] Thin prep Papanicolaou smear with manual screeningon 08-12-2021 Thin prep Papanicolaou smear with manual screening 1+ [facility] Work Phone: [phone] Thin prep Papanicolaou smear with manual screening 15 U/L 15-37 [facility] Work Phone: [phone] Thin prep Papanicolaou smear with manual screening 8 5-15 [facility] Work Phone: CNCLeslie 02-11-2021 CNCO [address] Text Normal [facility] CNPLe 02-11-2021 CNPN Telephone (SPAGWO) MARIELAARIELPEDRO PABLO R ([id number]) 1950 M Date Time Provider Department 02/11/21 ELADIA PARKER, [facility] During your visit today, we recorded the following information about you: Mago Fay 02/11/2021 1:36 PM Signed No Show Documentation Pedro Pablo R Mariela no showed for an appointment on 02/11/2021 [...] [J43.9] - COMPOUNDED PRESCRIPTION Aerosol supplies Dx:J44.1 NPI#[id number] - ipratropium-albuterol (DUONEB) 0.5 mg-3 mg(2.5 mg [...] AND FOLLOW-UP (more content not included)... Normal [facility] XR Femur - left AP and Later lonny 11-11-2020 IMPRESSION: 1. No radiographic evidence of acute osseous abnormality. 2. Atherosclerotic disease. Dial Screw Assembler: SHANELL Transcribe Date/Time: Nov 11 2020 10:50A Dictated by : RONALD COLUNGA MD This examination was interpreted and the report reviewed and electronically signed by: RONALD COLUNGA MD on Nov 11 2020 10:53AM [facility] DIVISION OF RADIOLOGY * * *Final [...] of the vasculature. DIVISION OF RADIOLOGY Provider, [facility] - 11/11/2020 * * *Final Report* [...] of acute osseous abnormality. 2. Atherosclerotic disease. Dial Screw Assembler: [facility] Transcribe Date/Time: Nov 11 2020 10:50A Dictated by : RONALD COLUNGA MD This examination was interpreted and the report reviewed and electronically signed by: RONALD COLUNGA MD on Nov 11 2020 10:53AM [facility] Radiology Study observation (narrative) Milly carson [facility] XR Femur - left AP and Later alOrdered By: [facility] Provider on 11-11-2020 [facility] CBC and Differentialon 04-10 Abs Baso 0.10 k/uL Normal <0.11 [facility] Abs [place] 0.44 k/uL Normal <0.87 [facility] Abs Neut 4.50 k/uL Normal 1.45-7.50 [facility] Absolute nRBC <0.01 Normal <0.01 [facility] Basophils/100 WBC (Bld) 1.4 % Normal [facility] DTYPE Auto Diff Normal [facility] Eosinophils (Bld) [#/Vol] 0.06 10*3/uL Normal <0.46 [facility] Eosinophils/100 WBC (Bld) 0.9 % Normal [facility] Erythrocyte distribution width (RBC) [Ratio] 21.0 % High 11.5-15.0 [facility] Hematocrit (Bld) [Volume fraction] 39.7 % Normal 39.0-51.0 [facility] Hemoglobin (Bld) [Mass/Vol] 11.3 g/dL Low 13.0-17.0 [facility] Lymphocytes (Bld) [#/Vol] 1.81 10*3/uL Normal 1.00-4.00 [facility] Lymphocytes/100 WBC (Bld) 26.2 % Normal [facility] MCH (RBC) [Entitic mass] 21.6 pG Low 26.0-34.0 [facility] MCHC (RBC) [Mass/Vol] 28.5 g/dL Low 30.5-36.0 [facility] MCV (RBC) [Entitic vol] 76.1 fL Low 80.0-100.0 [facility] Monocytes/100 WBC (Bld) 6.4 % Normal [facility] Neutrophils/100 WBC (Bld) 65.1 % Normal [facility] NRBCs 0.0 /100 WBC Normal 0 [facility] Platelet mean volume (Bld) [Entitic vol] 9.9 fL Normal 9.0-12.7 [facility] Platelets (Bld) [#/Vol] 302 10*3/uL Normal 150-400 [facility] RBC (Bld) [#/Vol] 5.22 10*6/uL Normal 4.20-6.00 [facility] WBC (Bld) [#/Vol] 6.91 10*3/uL Normal 3.70-11.[address] [facility] [address] BRAIN WO IVCONon 04-10-20 CT BRAIN WO IVCON * * *Final Report* * * DATE OF EXAM: Apr 10 2020 3:59PM [facility] [id number] - CT BRAIN WO IVCON [...] base and imaged soft tissues are unremarkable. Asphalt Roller Operator (topogram) images: No additional findings. IMPRESSION: NO CT EVIDENCE OF ACUTE INTRACRANIAL PROCESS. Dial Screw Assembler: SHANELL Transcribe Date/Time: Apr 10 2020 4:01P Dictated by : REBECCA BRYAN MD This examination was interpreted and the report reviewed and electronically signed by: REBECCA BRYAN MD on Apr 10 2020 4:04PM EST [id number] Normal [facility] Comp Metabolic Panelon 04-10 Albumin [Mass/Vol] 5.2 g/dL High 3.9-4.9 [facility] ALP [Catalytic activity/Vol] 65 U/L Normal 38-113 [facility] ALT [Catalytic activity/Vol] 19 U/L Normal 10-54 [facility] Anion gap [Moles/Vol] 10 mmol/L Normal 9-18 [facility] AST [Catalytic activity/Vol] 17 U/L Normal 14-40 [facility] Bilirubin [Mass/Vol] mg/dL Low 0.2-1.3 [facility] Calcium [Mass/Vol] 9.8 mg/dL Normal 8.5-10.2 [facility] Chloride [Moles/Vol] 99 mmol/L Normal 97-105 [facility] CO2 [Moles/Vol] 30 mmol/L Normal 22-30 [facility] Creatinine [Mass/Vol] 1.05 mg/dL Normal 0.73-1.22 [facility] eGFR- Amer. >60 Normal [facility] GFR/1.73 sq M predicted among non-blacks MDRD (S/P/Bld) [Vol rate/Area] mL/min/{1.73_m2} Normal [facility] Comment on above: Result Comment: eGFR [...] GFR. Glucose [Mass/Vol] 106 mg/dL High 74-99 [facility] Comment on above: Result Comment: The Indian [...] 1). Potassium [Moles/Vol] 3.7 mmol/L Normal 3.7-5.1 [facility] Protein [Mass/Vol] 7.6 g/dL Normal 6.3-8.0 [facility] Sodium [Moles/Vol] 139 mmol/L Normal 136-144 [facility] Urea nitrogen [Mass/Vol] 17 mg/dL Normal 9-24 [facility] ED NOTEon 04-10-2020 ED NOTE HNO ID: [id number] Author: Delaney (Rn) ОЛЕГ Cortes Service: ? [...] ED in no acute distress with family. [facility] ED NOTE HNO ID: [id number] Author: Maddi (Rn) ОЛЕГ Giles Service: ? Author Type: Registered Nurse Type: ED Notes Filed: 04/10/2020 4:08 PM Note Text: Patient to XR and CT. [facility] ED NOTE HNO ID: [id number] Author: Evelia (Medic) Shanelle Rios Service: ? Author Type: Fabrication Operator and Radiology Technician Type: ED Notes Filed: 04/10/2020 2:36 PM Note Text: BP was high in dr office. 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 Dial Screw Assembler: SHANELL Transcribe Date/Time: Apr 10 2020 4:01P Dictated by : REBECCA BRYAN MD This examination was interpreted and the report reviewed and electronically signed by: REBECCA BRYAN MD on Apr 10 2020 4:04PM EST XR CHEST 2V FRONTAL/LAT Final Result IMPRESSION: Mild interstitial prominence suggestive of airways inflammation such as asthma or bronchitis Dial Screw Assembler: SHANELL Transcribe Date/Time: Apr 10 2020 3:50P [...] Barkley. SIGNATURE: HOWIE Spear) YARIEL Lisa 04/10/20 1809 Attending Note I have personally performed a face to face assessment of the patient and have reviewed the PA/MACHINE I CUTTER note. My echevarria findings include: History is 69-year-old male here today with elevated blood pressure as well as generalized headache he states he gets migraines and this feels similar. He has no other complaints to me including no nausea no vomiting no blurred vision including no chest pain despite time the physician's instruction assistant principal he was having chest pain he told [...] evaluation given that he told the physicians instruction assistant principal he was having left changes chest pain [...] 10:00 PM Alie Barkley 04/11/20 2203 Normal [facility] High Sens Troponin Ton 04-10 High Sensitivity MARCIE 16 ng/L High <12 [facility] High Sensitivity MARCIE 16 ng/L High <12 [facility] High Sensitivity MARCIE 15 ng/L High <12 [facility] PROGRESSon 04-10-2020 PROGRESS HNO ID: [id number] Author: William Murray (Ct) Service: ? Author Type: Radiology Technician Type: Progress Notes Filed: 04/10/2020 3:58 PM [...] RT Trevor April 10, 2020 3:57 PM [facility] PROGRESS HNO ID: [id number] Author: Kalee NessRtPauline Watts Service: Radiology Author Type: Radiology Technician Type: Progress Notes Filed: 04/10/2020 3:47 PM [...] FRANCOIS RT(R) April 10, 2020 3:46 PM [facility] Protimeon 04-10-2020 PT Coag (PPP) [Time] 1.2 s Normal 0.9-1.3 [facility] Comment on above: Result Comment: [...] Chest 2012, 141:7S-47S Gio RA, et al. [facility] 2017, 70: 252-289 PT Coag (PPP) [Time] 12.9 s Normal 9.7-13.0 [facility] Troponin Ton 04-10-2020 Troponin T.cardiac [Mass/Vol] ug/L Normal 0.000-0.029 [facility] XR CHEST 2V FRONTAL/LATon XR CHEST [...] airways inflammation such as asthma or bronchitis Dial Screw Assembler: SHANELL Transcribe Date/Time: Apr 10 2020 3:50P Dictated by : DAIANA SEBASTIAN MD This examination was interpreted and the report reviewed and electronically signed by: DAIANA SEBASTIAN MD on Apr 10 2020 3:51PM EST [id number] [facility] CTA ABD/PEL/LOWER EXT WO/W I VCONon 04-02-2020 CTA ABD/PEL/LOWER EXT WO/W IVCON * * *Final Report* * * DATE OF EXAM: Apr 02 2020 4:52PM [facility] [id number] - CTA ABD/PEL/LOWER EXT WO/W IVCON [...] artery. Stent graft is patent with minimal xb-oprfy-owob-old thrombus not causing significant narrowing. The stent [...] portion with a graft reconnects into the [place] common femoral artery just prior to the [...] the distal calf. No acute nonvascular findings. Dial Screw Assembler: SHANELL Transcribe Date/Time: Apr 03 2020 8:25A Dictated by : Nelson SARABIA DO This examination was interpreted and the report reviewed and electronically signed by: Nelson SARABIA DO on Apr 03 2020 9:38AM EST [id number] [facility] NURSING PROGon 04-02-2020 NURSING PROG HNO ID: [id number] Author: Libby (Rn) ОЛЕГ Coello Service: Cardiovascular [...] DATE: April 02, 2020 TIME: 4:[address] [facility] PROGRESSon 04-02-2020 PROGRESS HNO ID: [id number] Author: DEANNE Tuttle (Ct) Service: Radiology Author Type: Radiology Technician Type: Progress Notes Filed: 04/02/2020 4:51 PM [...] DEANNE Tuttle April 02, 2020 4:[address] [facility] APTTon 12-17-2019 aPTT Coag (Bld) [Time] 31.0 s Normal 23.0-32.4 [facility] Comment on above: Result Comment: Unfr [...] laboratory APTT reagent in use throughout the [facility]. Performed By: #### C BCDIF, CMP, MG1, PHOS, PT, PTT ####[facility] [place], [place] [phone] CASE MANAGEMon 12-17-2019 CASE MANAGEM HNO ID: [id number] Author: Eva (Rn) ОЛЕГ Yee Service: Care Management Author Type: Registered Nurse Type: Care Mgt Progress Note Filed: 12/17/2019 4:56 PM Note Text: CARE MANAGEMENT DISCHARGE NOTE SERVICE DATE: 12/17/2019 SERVICE TIME: 4:54 PM LOS: 0 days Admission Date: 12/17/2019 DISCHARGE ARRANGEMENT (list agency and phone number) Discharge Arrangement: Return to long term;long-term facility Was an expedited discharge program used?: No CAREGIVER ASSESSMENT: Caregiver is ready, willing and able to meet the patient's needs as recommended by the inter-professional team:: Yes Does the patient have an acute stroke diagnosis, or has the patient had a stroke during this admission?: No Patient's transition needs and plan for meeting these needs: Senior Living Faciliyt HANDOFF COMMUNICATION: Handoff to: Primary Care Physician Primary Care Physician Name/Phone: Daija [phone] TRANSPORTATION ARRANGEMENTS: Transportation Arrangements: Ambulance/[facility] Agency and Phone #:: Jbbryant Koroma [phone] Date of Trip: 12/17/19 Type of Service: BLS Non-emergency Is Patient Medicaid Pending?: No Discussion of financial coverage occurred with: Patient Stamping Operator Location: [place] Destination: [facility] Financial Care Management Responsibility: None ADDITIONAL CONTACT RESOURCES: none Discharge Information Row Name Admission (Current) from 12/17/2019 in [facility] lewisens at[facility] Transport Arranged To: [facility] Agency [facility] Needs Prior to Discharge: Ready for Discharge Discharge order in place. Pt will transfer back to [facility]. Transport scheduled with J[facility] Koroma. Authorization call to [facility] for approval for transport completed, auth number provided to [facility]. Referrals updated. Discharge packet on chart. Rn notified of transport time. Patient also updated on transport scheduled for tonight. SIGNATURE: Eva Yee RN PATIENT NAME: Pedro Pablo Sierra DATE: December 17, 2019 TIME: 4:54 PM PAGER/CONTACT #: [phone] [facility] CASE MGT INIT [place] 2019 CASE MGT INIT JOSE HNO ID: [id number] Author: Eva (Rn) ОЛЕГ Yee Service: Care Management Author Type: Registered Nurse Type: Care Mgt Initial Assessment Filed: 12/17/2019 2:51 PM Note Text: CARE MANAGEMENT: ASSESSMENT AND DISCHARGE PLAN SERVICE DATE: December 17, 2019 SERVICE TIME: 2:39 PM PRIMARY CARE PHYSICIAN: DAIJA MORTON MD ADMISSION STATUS: Observation Needs Prior to Discharge: To Be Determined;OT/PT Evaluation;Precertific ation;Discharge Transportation MEDICAL: [facility] MEDICARE 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 Last discharge within 30 days: No Advance Directive: Current Advance Directive: Health Care Power of Yacht Rigger In Chart: Yes Up To Date and [...] Receive Any Community Services or Home Care?: Senior Living;Physical Therapist;Occupational Therapist;Other: See Comment(speech therapy) Equipment Prior to Admission: Other: See Comment(Using equipment at facility) Location and Dates: [facility] SOCIAL: Living Arrangements: Nursing Facility Financial Resources: DisabledPrimary Contact: Extended Emergency Contact Information Primary Emergency Contact: Michelle Richmond Mobile Relation: Daughter Secondary Emergency Contact: Joseph Espinoza Mobile Relation: Relative Supportive Patient Contact:: Yes Contact Resources: BARBARA JIMENEZ Name/Phone: Joseph [phone] Social Needs Food insecurity Worry: Sometimes true [...] needs and plan for meeting these needs: Senior Living Facility Patient's perception of need for this admission: Leg numbness, pain, swelling Medication Adherance I am convinced of the importance of my prescription medication: 0 - Agree Completely I worry that my prescription medication will do more harm than good to me : 0 - Disagree Completely I feel financially burdened by my [id number]-[id number] expenses for my prescription medication:: 0 - Disagree Completely Risk Score: 0 Patient is categorized as: Low risk < 2 Are you interested in bedside delivery of your medications? No Is Patient Psychosocially Complex?: No ASSESSMENT AND PLAN: Medical Needs: Medical Needs: Two or more chronic diseases;Fall risk or frequent falls Psychosocial Needs: Psychosocial Needs: None FREEDOM OF CHOICE EXPLAINED: [place] of Choice Given: Yes Level of Care Discussed: Senior Living Facility Financial Disclosure Provided: Yes Financial Disclosure Comments: patient Provider List: Senior Living Facility Provider list within the patient's requested geographic area shared with the patient/family: No Quality and resource use metrics shared with the patient that are relevant to the patient's goals of care and treatment preferences:: No Reason: Pt admitted from [facility], wants to return POTENTIAL TRANSITION PLANS Senior Living Facility/Intermediate Care Facility TCC met with patient at bedside to discuss transition planning. Pt was at [facility] for rehab. Has been getting therapy there with PT/OT/ST since surgery. Has a mobile home in that area he would like to return to eventually. Pt plan is to return to long-term facility. Referral sent, [facility] states they will need precert. Orders obtained for Pt/ot evals. Notified surgery team of delay in transition d/t need for precert. Pt will need transport scheduled to return to facility. SIGNATURE: Eva Yee RN PATIENT NAME: Pedro Pablo Sierra DATE: December 17, 2019 TIME: 2:39 PM PAGER/CONTACT #: [phone] Normal [facility] CBC and Differentialon 12-16 Abs Baso 0.09 k/uL Normal <0.11 [facility] Comment on above: Performed By: #### C BCDIF, CMP, MG1, PHOS, PT, PTT ####[place] [phone] Abs Beaver 0.45 k/uL Normal <0.87 [facility] Comment on above: Performed By: #### C BCDIF, CMP, MG1, PHOS, PT, PTT ####[place] [phone] Abs Neut 2.49 k/uL Normal 1.45-7.50 [facility] Comment on above: Performed By: #### C BCDIF, CMP, MG1, PHOS, PT, PTT ####[place] [phone] Absolute nRBC <0.01 Normal <0.01 [facility] Comment on above: Performed By: #### C BCDIF, CMP, MG1, PHOS, PT, PTT ####[place] [phone] Basophils/100 WBC (Bld) 2.0 % Normal [facility] Comment on above: Performed By: #### C BCDIF, CMP, MG1, PHOS, PT, PTT ####[place] [phone] DTYPE Auto Diff Normal [facility] Comment on above: Performed By: #### C BCDIF, CMP, MG1, PHOS, PT, PTT ####[place] [address] Eosinophils (Bld) [#/Vol] 0.21 10*3/uL Normal <0.46 [facility] Comment on above: Performed By: #### C BCDIF, CMP, MG1, PHOS, PT, PTT ####[place] [address] Eosinophils/100 WBC (Bld) 4.6 % Normal [facility] Comment on above: Performed By: #### C BCDIF, CMP, MG1, PHOS, PT, PTT ####[place] [address] Erythrocyte distribution width (RBC) [Ratio] 15.8 % High 11.5-15.0 [facility] Comment on above: Performed By: #### C BCDIF, CMP, MG1, PHOS, PT, PTT ####[place] [address] Hematocrit (Bld) [Volume fraction] 32.1 % Low 39.0-51.0 [facility] Comment on above: Performed By: #### C BCDIF, CMP, MG1, PHOS, PT, PTT ####[place] [address] Hemoglobin (Bld) [Mass/Vol] 9.5 g/dL Low 13.0-17.0 [facility] Comment on above: Performed By: #### C BCDIF, CMP, MG1, PHOS, PT, PTT ####[place] [address] Lymphocytes (Bld) [#/Vol] 1.29 10*3/uL Normal 1.00-4.00 [facility] Comment on above: Performed By: #### C BCDIF, CMP, MG1, PHOS, PT, PTT ####[phone] Lymphocytes/100 WBC (Bld) 28.4 % Normal [facility] Comment on above: Performed By: #### C BCDIF, CMP, MG1, PHOS, PT, PTT ####[place] [phone] MCH (RBC) [Entitic mass] 24.7 pG Low 26.0-34.0 [facility] Comment on above: Performed By: #### C BCDIF, CMP, MG1, PHOS, PT, PTT ####[place] [phone] MCHC (RBC) [Mass/Vol] 29.6 g/dL Low 30.5-36.0 [facility] Comment on above: Performed By: #### C BCDIF, CMP, MG1, PHOS, PT, PTT ####[place] [phone] MCV (RBC) [Entitic vol] 83.4 fL Normal 80.0-100.0 [facility] Comment on above: Performed By: #### C BCDIF, CMP, MG1, PHOS, PT, PTT ####[place] [phone] Monocytes/100 WBC (Bld) 9.9 % Normal [facility] Comment on above: Performed By: #### C BCDIF, CMP, MG1, PHOS, PT, PTT ####[place] [phone] Neutrophils/100 WBC (Bld) 55.1 % Normal [facility] Comment on above: Performed By: #### C BCDIF, CMP, MG1, PHOS, PT, PTT ####[place] [phone] NRBCs 0.0 /100 WBC Normal 0 [facility] Comment on above: Performed By: #### C BCDIF, CMP, MG1, PHOS, PT, PTT ####[place] [phone] Platelet mean volume (Bld) [Entitic vol] 10.2 fL Normal 9.0-12.7 [facility] Comment on above: Performed By: #### C BCDIF, CMP, MG1, PHOS, PT, PTT ####[address] [phone] Platelets (Bld) [#/Vol] 274 10*3/uL Normal 150-400 [facility] Comment on above: Performed By: #### C BCDIF, CMP, MG1, PHOS, PT, PTT ####[place] [phone] RBC (Bld) [#/Vol] 3.85 10*6/uL Low 4.20-6.00 [facility] Comment on above: Performed By: #### C BCDIF, CMP, MG1, PHOS, PT, PTT ####[place] [phone] WBC (Bld) [#/Vol] 4.54 10*3/uL Normal 3.70-11.00 [facility] Comment on above: Performed By: #### C BCDIF, CMP, MG1, PHOS, PT, PTT ####[address] [phone] Comp Metabolic Panelon 12-16 Albumin [Mass/Vol] 4.2 g/dL Normal 3.5-5.0 [facility] Comment on above: Performed By: #### C BCDIF, CMP, MG1, PHOS, PT, PTT ####[address] [phone] ALP [Catalytic activity/Vol] 63 U/L Normal 38-113 [facility] Comment on above: Performed By: #### C BCDIF, CMP, MG1, PHOS, PT, PTT ####[address] [phone] ALT [Catalytic activity/Vol] 19 U/L Normal 5-50 [facility] Comment on above: Performed By: #### C BCDIF, CMP, MG1, PHOS, PT, PTT ####[place] [phone] Anion gap [Moles/Vol] 10 mmol/L Normal 9-18 [facility] Comment on above: Performed By: #### C BCDIF, CMP, MG1, PHOS, PT, PTT ####[place] [phone] AST [Catalytic activity/Vol] 16 U/L Normal 7-40 [facility] Comment on above: Performed By: #### C BCDIF, CMP, MG1, PHOS, PT, PTT ####[place] [phone] Bilirubin [Mass/Vol] mg/dL Low 0.2-1.3 [facility] Comment on above: Performed By: #### C BCDIF, CMP, MG1, PHOS, PT, PTT ####[place] [phone] Calcium [Mass/Vol] 9.2 mg/dL Normal 8.5-10.5 [facility] Comment on above: Performed By: #### C BCDIF, CMP, MG1, PHOS, PT, PTT ####[place] [phone] Chloride [Moles/Vol] 101 mmol/L Normal 98-110 [facility] Comment on above: Performed By: #### C BCDIF, CMP, MG1, PHOS, PT, PTT ####[place] [phone] CO2 [Moles/Vol] 28 mmol/L Normal 23-32 [facility] Comment on above: Performed By: #### C BCDIF, CMP, MG1, PHOS, PT, PTT ####[place] [phone] Creatinine [Mass/Vol] 0.79 mg/dL Normal 0.70-1.40 [facility] Comment on above: Performed By: #### C BCDIF, CMP, MG1, PHOS, PT, PTT ####[place] [phone] eGFR- Amer. >60 Normal >60 [facility] Comment on above: Performed By: #### C BCDIF, CMP, MG1, PHOS, PT, PTT ####[place] [phone] GFR/1.73 sq M predicted among non-blacks MDRD (S/P/Bld) [Vol rate/Area] mL/min/{1.73_m2} Normal >60 [facility] Comment on above: Performed By: #### C BCDIF, CMP, MG1, PHOS, PT, PTT ####[place] [phone] Glucose [Mass/Vol] 94 mg/dL Normal 65-100 [facility] Comment on above: Performed By: #### C BCDIF, CMP, MG1, PHOS, PT, PTT ####[place] [phone] Potassium [Moles/Vol] 3.6 mmol/L Normal 3.5-5.0 [facility] Comment on above: Performed By: #### C BCDIF, CMP, MG1, PHOS, PT, PTT ####[place] [phone] Protein [Mass/Vol] 6.5 g/dL Normal 6.0-8.4 [facility] Comment on above: Performed By: #### C BCDIF, CMP, MG1, PHOS, PT, PTT ####[place] [phone] Sodium [Moles/Vol] 139 mmol/L Normal 135-146 [facility] Comment on above: Performed By: #### C BCDIF, CMP, MG1, PHOS, PT, PTT ####[facility] [place], [place] [phone] Urea nitrogen [Mass/Vol] 14 mg/dL Normal 10-25 [facility] Comment on above: Performed By: #### C BCDIF, CMP, MG1, PHOS, PT, PTT ####[facility] [place], [place] [phone] Coronavirus 2019on 0 COVID 19 Result IT SECURITY CONSULTANT Negative Normal Negative for COVID19 (SARS CoV2) by PCR. [facility] Comment on above: Result Comment: This test was developed and its performance characteristics determined by [facility] Pathology and Laboratory Medicine [place]. This test has been authorized by FDA under an Emergency Use Authorization (EUA). This test has been validated in accordance with the FDA's Guidance Document Policy for Diagnostics Testing in Laboratories Certified to Perform High Complexity Testing under CLIA prior to Emergency use Authorization for Coronavirus Disease 2019 during the Public Health Emergency issued on August 17, 2019. Performed By: #### C OVID ####[place] [address] [place], [place] [phone] COVID 19 Source IT SECURITY CONSULTANT Nasopharyngeal Swab Normal [facility] Comment on above: Performed By: #### C OVID ####[place] [address] [place], [place] [phone] HISTORY PHYSICALon 0 HISTORY PHYSICAL HNO ID: [id number] Author: Eloisa Lin Service: Vascular Surgery Author Type: Resident Type: HANDP Filed: 12/17/2019 5:33 AM Note Text: Attestation signed by Rob Stevens at 12/18/2019 8:10 AM [facility] STAFF PHYSICIAN NOTE OF PERSONAL INVOLVEMENT IN [...] recently in September underwent a redo Left LABORATORY MACHINIST endart with bovine 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 Due to occlusion of this repair 2 days later, he returned to the OR and underwent a Left EIA to LABORATORY MACHINIST bypass with 7mm PTFE distally with retrograde [...] to be seen in the ED. At [facility], a CTA and DVT scan was done, [...] these findings he was transferred to . [facility] labs: wbc 5.4, Hgb 10.5, PLT 303, PT 21, INR 1.9, Creatitine 0.83, gluc 99. He is well on examination here. Leg tender, but good circulation. Biphasic signals at the LABORATORY MACHINIST, DP and PT on the left. 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 Angioplasty left LABORATORY MACHINIST - REVSC OPN/PRG FEM/POP W/ANGIOPLASTY UNI 07/02/2014 [...] bowel movements. COMPOUNDED PRESCRIPTION Aerosol supplies Dx:J44.1 NPI#[id number] ipratropium-albuterol (DUONEB) 0.5 mg-3 mg(2.5 mg base)/3 [...] Lin MD PGY III general surgery Pager [phone] *On weekends or nights (after 1800) please contact the surgery family consumer scientist pager.* Normal [facility] Magnesiumon 12-17-2019 Magnesium [Mass/Vol] 1.6 mg/dL Low 1.7-2.6 [facility] Comment on above: Performed By: #### C BCDIF, CMP, MG1, PHOS, PT, PTT ####[facility] [place], [place] [phone] NURSING PROGon 12-17-2019 NURSING PROG HNO ID: [id number] Author: Breana NessRn) ОЛЕГ Bernal Service: ? [...] note was completed by: Breana Bernal RN [facility] NURSING PROG HNO ID: [id number] Author: Pina Hutchison) ОЛЕГ Perez Service: ? [...] drainage noted on wound at groin site. [place]dal sound bed noted Pedal pulse doppled to left foot. Pain level 8/10 medicated as ordered. Medication therapy continues. [facility] NURSING PROG HNO ID: [id number] Author: Arnulfo (Rn) ОЛЕГ Thapa Service: ? Author Type: Registered Nurse Type: Nursing Progress Note Filed: 12/17/2019 6:44 AM Note Text: Nursing Progress Note Patient Name: Pedro Pablo Sierra Patient Location: [place] [address] [address] __ Transfer Note: Patient transferred into room/unit [place] [address] in stable condition. Actions taken: patient oriented to room and call light. Admission assessment completed. Surgery at bedside speaking with patient. 0600 - waiting for lab to draw in order to begin heparin drip This note was completed by: Arnulfo Thapa RN [facility] PT EDon 12-17-2019 PT ED HNO ID: [id number] Author: Eloisa Oseguera (Pharmacist) Service: Pharmacy Author [...] Outpatient follow-up plan: Follow-up in Anticoagulation Clinic: [facility] ([phone]) Indication for warfarin: peripheral artery disease (PAD) [...] met: Indicates understanding of topic Outpatient Follow-up: [facility] Yeimi Nolasco (Shop Worker) Preceptor Addendum: The above case has been reviewed and discussed with the telegraphic typewriter operator chief. I agree with the assessment/plan described. Changes and additions to the details in the above note are indicated by italics and . ELOISA OSEGUERA, PHARMACIST Normal [facility] Phosphoruson 12-17-2019 Phosphate [Mass/Vol] 3.4 mg/dL Normal 2.5-4.5 [facility] Comment on above: Performed By: #### C BCDIF, CMP, MG1, PHOS, PT, PTT ####[place] [id number] [place], [place] [phone] Protimeon 12-17-2019 PT Coag (PPP) [Time] 16.8 s High 9.7-13.0 [facility] Comment on above: Performed By: #### C BCDIF, CMP, MG1, PHOS, PT, PTT ####[address] [phone] PT Coag (PPP) [Time] 1.6 s High 0.9-1.3 [facility] Comment on above: Result Comment: Teri min [...] C BCDIF, CMP, MG1, PHOS, PT, PTT ####[place] [phone] Type and Screenon 12-17-2019 ABO/RH(D) Positive Normal [facility] Comment on above: Performed By: #### T SCR ####[place] [phone] Basic Metabolic Panlon 10-24 Anion gap [Moles/Vol] 11 mmol/L Normal 9-18 [facility] Comment on above: Performed By: #### C BC, BMP ####[place] [phone] Calcium [Mass/Vol] 8.4 mg/dL Low 8.5-10.5 [facility] Comment on above: Performed By: #### C BC, BMP ####[place] [phone] Chloride [Moles/Vol] 101 mmol/L Normal 98-110 [facility] Comment on above: Performed By: #### C BC, BMP ####[place] [phone] CO2 [Moles/Vol] 27 mmol/L Normal 23-32 [facility] Comment on above: Performed By: #### C BC, BMP ####[place] [phone] Creatinine [Mass/Vol] 0.80 mg/dL Normal 0.70-1.40 [facility] Comment on above: Performed By: #### C BC, BMP ####[place] [phone] eGFR- Amer. >60 Normal >60 [facility] Comment on above: Performed By: #### C BC, BMP ####[place] [phone] GFR/1.73 sq M predicted among non-blacks MDRD (S/P/Bld) [Vol rate/Area] mL/min/{1.73_m2} Normal >60 [facility] Comment on above: Performed By: #### C BC, BMP ####[address] [phone] Glucose [Mass/Vol] 111 mg/dL High 65-100 [facility] Comment on above: Performed By: #### C BC, BMP ####[address] [phone] Potassium [Moles/Vol] 4.6 mmol/L Normal 3.5-5.0 [facility] Comment on above: Performed By: #### C BC, BMP ####[address] [phone] Sodium [Moles/Vol] 139 mmol/L Normal 135-146 [facility] Comment on above: Performed By: #### C BC, BMP ####[address] [phone] Urea nitrogen [Mass/Vol] 19 mg/dL Normal 10-25 [facility] Comment on above: Performed By: #### C BC, BMP ####[address] [phone] CASE MANAGEMon 10-25-2019 CASE MANAGEM HNO ID: [id number] Author: Sybil Lima (Sw) Service: Case Management Author Type: Scraper Hand Type: Care Mgt Progress Note Filed: 10/25/2019 3:40 PM Note Text: CARE MANAGEMENT DISCHARGE NOTE SERVICE DATE: 10/25/2019 SERVICE TIME: 3:30 LOS: 7 days Admission Date: 10/17/2019 DISCHARGE ARRANGEMENT (list agency and phone number) Discharge Arrangement: long-term facility Was an expedited discharge program used?: No Provider Name: [facility] CAREGIVER ASSESSMENT: Caregiver is ready, willing and able to meet the patient's needs as recommended by the inter-professional team:: No Does the patient have an acute stroke diagnosis, or has the patient had a stroke during this admission?: No Patient's transition needs and plan for meeting these needs: SNF HANDOFF COMMUNICATION: Handoff to: Primary Care Physician Primary Care Physician Name/Phone: Daija Morton [phone] TRANSPORTATION ARRANGEMENTS: Transportation Arrangements: Ambulance/[place]lette Transportation Agency and Phone #:: [facility] [phone] Type of Service: BLS Non-emergency Is Patient Medicaid Pending?: No Discussion of financial coverage occurred with: Patient Stamping Operator Location: [place] Destination: [facility] Financial Care Management Responsibility: None ADDITIONAL CONTACT RESOURCES: SW spoke with ex- Teressa Akhtar at [facility] Care and LVM for Ashleighosmin at [facility]. Discharge Information Row Name Admission (Current) from 10/17/[address] [facility] Waiver services Herbologist Name Liseth ([facility] on aging) Notes Receives meals, emergency Health line, HHC for SN/PT/OT svcs; Please update with information once discharged. Transportation Arrangements: Ambulance/[place] Transportation Agency and Phone #:: [facility] [phone] Type of Service: BLS Non-emergency Is Patient Medicaid Pending?: No Discussion of financial coverage occurred with: Patient Stamping Operator Location: [place] Destination: [facility] Financial Care Management Responsibility: None IMM Follow Up Copy Given: Yes Copy given to:: Patient Retail Warehouse Associate Name/Relationship: patient and POA/ex- Joseph Method: In Person SIGNATURE: SHANE Mcelroy PATIENT NAME: Pedro Pablo Sierra DATE: October 25, 2019 TIME: 3:38 PM PAGER/CONTACT #: [phone] Normal [facility] CBCon 10-25-2019 Erythrocyte distribution width (RBC) [Ratio] 16.4 % High 11.5-15.0 [facility] Comment on above: Performed By: #### C LARRY BMP ####[facility] [place], [place] [phone] Hematocrit (Bld) [Volume fraction] 31.4 % Low 39.0-51.0 [facility] Comment on above: Performed By: #### C BC, BMP ####[address] [phone] Hemoglobin (Bld) [Mass/Vol] 9.6 g/dL Low 13.0-17.0 [facility] Comment on above: Performed By: #### C BC, BMP ####[address] [phone] MCH (RBC) [Entitic mass] 29.4 pG Normal 26.0-34.0 [facility] Comment on above: Performed By: #### C BC, BMP ####[place] [phone] MCHC (RBC) [Mass/Vol] 30.6 g/dL Normal 30.5-36.0 [facility] Comment on above: Performed By: #### C BC, BMP ####[facility] [place], [place] [phone] MCV (RBC) [Entitic vol] 96.3 fL Normal 80.0-100.0 [facility] Comment on above: Performed By: #### C BC, BMP ####[facility] [place] [address] [phone] Platelet mean volume (Bld) [Entitic vol] 9.2 fL Normal 9.0-12.7 [facility] Comment on above: Performed By: #### C BC, BMP ####[facility] [place] [address] [phone] Platelets (Bld) [#/Vol] 672 10*3/uL High 150-400 [facility] Comment on above: Performed By: #### C BC, BMP ####[facility] [place] [address] [phone] RBC (Bld) [#/Vol] 3.26 10*6/uL Low 4.20-6.00 [facility] Comment on above: Performed By: #### C BC, BMP ####[facility] [place], [place] [phone] WBC (Bld) [#/Vol] 5.27 10*3/uL Normal 3.70-11.00 [facility] Comment on above: Performed By: #### C LARRY, KATHY ####[facility] [place], [place] [phone] CONSULT PROGon 10-25-2019 CONSULT PROG HNO ID: [id number] Author: Josefa Garza Service: Pain Management Author Type: Physician Maintenance Equipment Operator Type: Consult Progress Note Filed: 10/25/2019 [...] 25, 2019 TIME: 12:48 PM PAGER/CONTACT #: [phone] [phone] [facility] NURSING PROGon 10-25-2019 NURSING PROG HNO ID: [id number] Author: Maryan (Rn) ОЛЕГ Pearson Service: Nursing Author Type: Registered Nurse Type: Nursing Progress Note Filed: 10/25/2019 7:02 PM Note Text: Nursing Progress Note Patient Name: Pedro Pablo Sierra Patient Location: [place] [address]/[place] [address] __ Daily Note: 1900 Report called to [facility]. This note was completed by: Maryan Pearson RN [facility] PROGRESSon 10-25-2019 PROGRESS HNO ID: [id number] Author: Juliana Price) Akshat Service: Vascular Surgery Author Type: Physician Maintenance Equipment Operator Type: Progress Notes Filed: 10/25/2019 2:27 [...] -- 10/24/19 0830 activity - mobilize patient (tn,ct) 10/17/19 0215 vte current anticoag therapy (tn,ct) 10/17/19 0215 pneumatic compression stockings ([place] VTE Prophylaxis: Not indicated due to [...] ? ? ? 82 18 97 % 10/24/19 2058 ? ? ? 73 18 89 % 10/24/19 2020 122/54 36.8 ?C (98.2 ?F) Oral 75 [...] records;Patient/family self-report;Medical condition ? Estimated kilocalorie needs: 4306-9399 KCAL Calorie Calculation Method: 25-30 kcals/kg Estimated protein needs (grams): 102-136 GM PROTEIN Grams protein determined by: 1.5-2.0 g/kg;Isabella Body Weight ? Care Plan: Continue current [...] 25, 2019 TIME: 2:00 PM PAGER/CONTACT #: [phone] [id number] [facility] PROGRESS HNO ID: [id number] Author: Anum Alvarez (Binu Chacko Service: Vascular [...] -- 10/17/19 0215 vte current anticoag therapy (tn,ct) 10/17/19 0215 pneumatic compression stockings [place] VTE Prophylaxis: VTE prophylaxis appropriate ALLERGIES [...] hematoma evacuation (related to anticoagulants),?Left EIA to LABORATORY MACHINIST bypass with 7mm ringed PTFE, retrograde open [...] 25, 2019 TIME: 7:00 AM PAGER/CONTACT #: [phone] ETX#[id number] Normal [facility] PTT,Anticoag Therapyon 10-24 aPTT Coag (Bld) [Time] 67.6 s High 23.0-32.4 [facility] Comment on above: Result Comment: Unfr [...] laboratory APTT reagent in use throughout the [facility]. Performed By: #### P T, PTTAC ####[facility] [place], [place] [phone] aPTT Coag (Bld) [Time] 64.9 s High 23.0-32.4 [facility] Comment on above: Result Comment: Unfr [...] laboratory APTT reagent in use throughout the [facility]. Performed By: #### P TTAC ####[facility] [place], [place] [phone] Protimeon 10-25-2019 PT Coag (PPP) [Time] 1.3 s Normal 0.9-1.3 [facility] Comment on above: Result Comment: Teri min [...] Chest 2012, 141:7S-47S Gio KENNY, et al. [facility] 2017, 70: 252-289 Performed By: #### P T, PTTAC ####[place] [address] [place], [place] [phone] PT Coag (PPP) [Time] 13.7 s High 9.7-13.0 [facility] Comment on above: Performed By: #### P T, PTTAC ####[place] [address] [place], [place] [phone] THERAPY NTon 10-25-2019 THERAPY NT HNO ID: [id number] Author: Elizabeth (Pt) Nate Service: Physical Therapy Author Type: Physical Therapist Type: Therapy (PT/OT/Speech/Resp) Filed: 10/25/2019 3:19 PM Note Text: Physical Therapy Treatment SERVICE DATE: 10/25/2019 SERVICE TIME: 1406 to 1440 ROOM: [place] [address] Recommended Discharge Disposition: Subacute/SNF Justification For Post [...] ness on feet Interventions Provided: Therapeutic Exercise (29732);Gait Training (77438) Therapeutic Exercise (21007) Treatment Minutes: 15 1 unit Skilled Intervention(s): Instruction in therapeutic exercise 1.) AP x 10 2.) QS x 10 R/L 3.) GS x 10 Educated on importance of antiembolic exercises as well as PNE concepts regarding nerve desensitization. Gait Training (08678) Treatment Minutes: 15 1 unit Skilled Intervention(s): [...] DATE: October 25, 2019 TIME: 3:06 PM [facility] THERAPY NT HNO ID: [id number] Author: Aixa Borja (Ot) Bartolome Service: Occupational Therapy Author Type: Occupational Therapist Type: Therapy (PT/OT/Speech/Resp) Filed: 10/25/2019 9:25 AM Note Text: OCCUPATIONAL THERAPY MISSED VISIT SERVICE DATE: 10/25/2019 SERVICE TIME: 923 to 923 ROOM: [place] [address] Attempted Treatment. Patient not seen due to Declined. Pt politely declines ADLs and mobility. SIGNATURE: Aixa Campbell, OTRL PATIENT NAME: Pedro Pablo Sierra DATE: October 25, 2019 TIME: 9:25 AM [facility] Basic Metabolic Panlon 10-23 Anion gap [Moles/Vol] 11 mmol/L Normal 9-18 [facility] Comment on above: Performed By: #### C LARRY, BMP ####[place] [address] [place], [place] [phone] Calcium [Mass/Vol] 8.3 mg/dL Low 8.5-10.5 [facility] Comment on above: Performed By: #### C LARRY, BMP ####[place] [address] [place], [place] [phone] Chloride [Moles/Vol] 99 mmol/L Normal 98-110 [facility] Comment on above: Performed By: #### C LARRY, BMP ####[facility] [place], [place] [phone] CO2 [Moles/Vol] 28 mmol/L Normal 23-32 [facility] Comment on above: Performed By: #### C BC, BMP ####[place] [phone] Creatinine [Mass/Vol] 0.87 mg/dL Normal 0.70-1.40 [facility] Comment on above: Performed By: #### C BC, BMP ####[place] [phone] eGFR- Amer. >60 Normal >60 [facility] Comment on above: Performed By: #### C LARRY, BMP ####[place] [phone] GFR/1.73 sq M predicted among non-blacks MDRD (S/P/Bld) [Vol rate/Area] mL/min/{1.73_m2} Normal >60 [facility] Comment on above: Performed By: #### C LARRY, BMP ####[place] [phone] Glucose [Mass/Vol] 106 mg/dL High 65-100 [facility] Comment on above: Performed By: #### C LARRY, BMP ####[place] [phone] Potassium [Moles/Vol] 4.2 mmol/L Normal 3.5-5.0 [facility] Comment on above: Performed By: #### C BC, BMP ####[place] [phone] Sodium [Moles/Vol] 138 mmol/L Normal 135-146 [facility] Comment on above: Performed By: #### C BC, BMP ####[place] [phone] Urea nitrogen [Mass/Vol] 17 mg/dL Normal 10-25 [facility] Comment on above: Performed By: #### C BC, BMP ####[place] [phone] CASE MANAGEMon 10-24-2019 CASE MANAGEM HNO ID: [id number] Author: Sybil Lima (Sw) Service: Case Management Author Type: Scraper Hand Type: Care Mgt Progress Note Filed: 10/24/2019 3:36 PM Note Text: CARE MANAGEMENT PROGRESS NOTE SERVICE DATE: 10/24/2019 SERVICE TIME: 2:30 LOS: 6 days [place] of Choice Given: Yes Level of Care Discussed: Senior Living Facility Financial Disclosure Provided: Yes Financial Disclosure Comments: [facility] SNF list Provider List: Senior Living Facility Provider list within the patient's requested geographic area shared with the patient/family: Yes within: 20 miles of zip code: [address] Quality and resource use metrics shared with the patient that are relevant to the patient's goals of care and treatment preferences:: Yes Metrics: Incidence of Major Falls;Skin Integrity;Potentially Preventable 30-day Post Discharge Readmission Rates;Resource Use Current Advance Directive: None Herbologist Attempted to Assist with AD Completion: Yes Patient is willing to go SNF for the ANKUR. Patient prefers to go to [facility]. Referrals sent. Patient completed POA forms naming his ex- Joseph as POA. Forms faxed to AD line to be uploaded. Original given to patient. SIGNATURE: SHANE Mcelroy PATIENT NAME: Pedro Pablo Sierra DATE: October 24, 2019 TIME: 3:34 PM PAGER/CONTACT #: [phone] Normal [facility] CBCon 10-24-2019 Erythrocyte distribution width (RBC) [Ratio] 16.4 % High 11.5-15.0 [facility] Comment on above: Performed By: #### C LARRY, BMP ####[facility] [place], [place] [phone] Hematocrit (Bld) [Volume fraction] 30.7 % Low 39.0-51.0 [facility] Comment on above: Performed By: #### C LARRY, BMP ####[facility] [place], [place] [phone] Hemoglobin (Bld) [Mass/Vol] 9.5 g/dL Low 13.0-17.0 [facility] Comment on above: Performed By: #### C LARRY, BMP ####[address] [phone] MCH (RBC) [Entitic mass] 30.0 pG Normal 26.0-34.0 [facility] Comment on above: Performed By: #### C LARRY, BMP ####[address] [phone] MCHC (RBC) [Mass/Vol] 30.9 g/dL Normal 30.5-36.0 [facility] Comment on above: Performed By: #### C BC, BMP ####[place] [phone] MCV (RBC) [Entitic vol] 96.8 fL Normal 80.0-100.0 [facility] Comment on above: Performed By: #### C LARRY, BMP ####[place] [phone] Platelet mean volume (Bld) [Entitic vol] 9.2 fL Normal 9.0-12.7 [facility] Comment on above: Performed By: #### C LARRY, BMP ####[place] [phone] Platelets (Bld) [#/Vol] 597 10*3/uL High 150-400 [facility] Comment on above: Performed By: #### C LARRY, BMP ####[address] [phone] RBC (Bld) [#/Vol] 3.17 10*6/uL Low 4.20-6.00 [facility] Comment on above: Performed By: #### C BC, BMP ####[place] [phone] WBC (Bld) [#/Vol] 5.74 10*3/uL Normal 3.70-11.00 [facility] Comment on above: Performed By: #### C BC, BMP ####[address] [phone] CONSULT PROGon 10-24-2019 CONSULT PROG HNO ID: [id number] Author: Marie Richey) Gonzalez Worley Service: Pain [...] 24, 2019 TIME: 09:14 AM PAGER/CONTACT #: [facility] [phone] [facility] NURSING PROGon 10-24-2019 NURSING PROG HNO ID: [id number] Author: Chrystal (Rn) ОЛЕГ Doan Service: ? Author Type: Registered Nurse Type: Nursing Progress Note Filed: 10/24/2019 10:11 AM Note Text: Nursing Progress Note Patient Name: Pedro Pablo Sierra Patient Location: [address] __ Daily Note: 1000 Clark catheter removed. This note was completed by: Chrystal Doan RN [facility] NURSING PROG HNO ID: [id number] Author: Pura Hutchison) ОЛЕГ Tai Service: Nursing Author Type: Registered Nurse Type: Nursing Progress Note Filed: 10/24/2019 6:55 AM Note Text: Nursing Progress Note Patient Name: Pedro Pablo Sierra Patient Location: [place] [address] __ Daily Note: 0630: Vascular surgical instrument maker rounded on the pt this morning. At pt's left hip near wound vac dressing, the pt developed blisters. The residents are aware and had visual of the blisters. This note was completed by: Pura Tai RN [facility] PROGRESSon 10-24-2019 PROGRESS HNO ID: [id number] Author: Anum Alvarez (Azalea) Ginna Service: Vascular [...] -- 10/17/19 0215 vte current [place]ag therapy [place] 10/17/19 0215 pneumatic [place]ings [place] VTE Prophylaxis: VTE prophylaxis appropriate ALLERGIES [...] hematoma evacuation (related to anticoagulants),?Left EIA to LABORATORY MACHINIST bypass with 7mm ringed PTFE, retrograde open [...] 24, 2019 TIME: 7:00 AM PAGER/CONTACT #: [phone] ETX#[id number] Normal [facility] PTT,Anticoag Therapyon 10-23 aPTT Coag (Bld) [Time] 42.1 s High 23.0-32.4 [facility] Comment on above: Result Comment: Unfr [...] laboratory APTT reagent in use throughout the [facility]. Performed By: #### P [facility] ####[facility] [place], [place] [phone] aPTT Coag (Bld) [Time] 52.7 s High 23.0-32.4 [facility] Comment on above: Result Comment: Unfr [...] laboratory APTT reagent in use throughout the [facility]. Performed By: #### P TTAC ####[facility] [place], [place] [phone] aPTT Coag (Bld) [Time] 73.8 s High 23.0-32.4 [facility] Comment on above: Result Comment: Unfr [...] laboratory APTT reagent in use throughout the [facility]. Performed By: #### P TTAC ####[facility] [place], [place] [phone] Protimeon 10-24-2019 PT Coag (PPP) [Time] 1.3 s Normal 0.9-1.3 [facility] Comment on above: Result Comment: Teri min [...] Chest 2012, 141:7S-47S Gio KENNY et al. [facility] 2017, 70: 252-289 Performed By: #### P T ####[facility] [place], [place] [phone] PT Coag (PPP) [Time] 14.1 s High 9.7-13.0 [facility] Comment on above: Performed By: #### P T ####[place] [id number] [place], [place] [phone] THERAPY NTon 10-24-2019 THERAPY NT HNO ID: [id number] Author: Elizabeth (Pt) Nate Service: Physical Therapy Author Type: Physical Therapist Type: Therapy (PT/OT/Speech/Resp) Filed: 10/24/2019 2:35 PM Note Text: Physical Therapy Evaluation SERVICE DATE: 10/24/2019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 Note: 0700 Report received from Rosaura AHUJA 0800 Assessment completed. 1000 Juliana Oden, Roman Girard CNP, and Dr. Lopez in for left groin wound vac change. 1200 Reassessment completed 1600 Reassessment completed. 1900 Report given to Yeimi AHUJA This note was completed by: Jaden New RN [facility] PROGRESSon 10-21-2019 PROGRESS HNO ID: [id number] Author: Emilie Alan (Pharmacist) Service: Pharmacy Author [...] please contact Emilie Alan, PharmD, BCPS at [phone]. Age: [age] year old Allergies: ALLERGIES No [...] 11/06/2013 0512 18.7 EMILIE ALAN, PHARMACIST Normal [facility] PROGRESS HNO ID: [id number] Author: Rashawn Huntley Service: Critical Care Author Type: Anesthesiologist Type: Progress Notes Filed: 10/21/2019 1:42 PM Note Text: SURGICAL INTENSIVE CARE UNIT PROGRESS NOTE Pedro Pablo Sierra [id number] Admit Date: 10/17/2019 1:34 AM Home Sales Service Professional: Dr. Huntley Surgeon: Dr. 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 In the OR, he underwent hematoma evacuation,?Left EIA to LABORATORY MACHINIST bypass with 7mm ringed PTFE, retrograde open [...] Vanesa Roberts MD General Surgery PGY-2 iPhone: [phone] October 21, 2019 [facility] STAFF PHYSICIAN NOTE OF PERSONAL INVOLVEMENT [...] Huntley DO 1:42 PM October 21, 2019 [facility] PROGRESS HNO ID: [id number] Author: Lesly Salvador Service: Vascular Surgery Author [...] -- 10/17/19 0215 vte current anticoag therapy ([place]) 10/17/19 0215 pneumatic compression stockings ([place]) VTE Prophylaxis: VTE prophylaxis appropriate ALLERGIES [...] on 10/10/19 for hematoma evacuation,?Left EIA to LABORATORY MACHINIST bypass with 7mm ringed PTFE, retrograde open [...] 21, 2019 TIME: 9:22 AM PAGER/CONTACT #: [phone]#[phone] I agree with the above note. The [...] time. The patient understands and agrees. Normal [facility] PTT,Anticoag Therapyon 10-20 aPTT Coag (Bld) [Time] 37.0 s High 23.0-32.4 [facility] Comment on above: Result Comment: Unfr [...] laboratory APTT reagent in use throughout the [facility]. Performed By: #### P [facility] ####[facility] [place], [place] [phone] aPTT Coag (Bld) [Time] 68.6 s High 23.0-32.4 [facility] Comment on above: Result Comment: Unfr [...] laboratory APTT reagent in use throughout the [facility]. Performed By: #### P TTAC ####[place] [address] [place], [place] [phone] aPTT Coag (Bld) [Time] 44.0 s High 23.0-32.4 [facility] Comment on above: Result Comment: Unfr [...] laboratory APTT reagent in use throughout the [facility]. Performed By: #### P TTAC ####[address] [phone] Vancomycinon 10-21-2019 Vancomycin 16.3 ug/mL Normal 10.0-20.0 [facility] Comment on above: Result Comment: Refe rence ranges and high/low indicator flags are provided as general guidelines only. The treating physician must determine appropriate target levels/dosing based on the specific clinical situation. Performed By: #### V ANCRA ####[address] [phone] APTTon 10-20-2019 aPTT Coag (Bld) [Time] 30.3 s Normal 23.0-32.4 [facility] Comment on above: Result Comment: Unfr [...] laboratory APTT reagent in use throughout the [facility]. Performed By: #### B MP, PTT ####[place] [phone] Basic Metabolic Panlon 10-19 Anion gap [Moles/Vol] 9 mmol/L Normal 9-18 [facility] Comment on above: Performed By: #### B MP, PTT ####[place] [phone] Calcium [Mass/Vol] 8.6 mg/dL Normal 8.5-10.5 [facility] Comment on above: Performed By: #### B LYNNE, PTT ####[place] [phone] Chloride [Moles/Vol] 103 mmol/L Normal 98-110 [facility] Comment on above: Performed By: #### B MP, PTT ####[place] [phone] CO2 [Moles/Vol] 28 mmol/L Normal 23-32 [facility] Comment on above: Performed By: #### B MP, PTT ####[place] [phone] Creatinine [Mass/Vol] 0.90 mg/dL Normal 0.70-1.40 [facility] Comment on above: Performed By: #### B MP, PTT ####[place] [phone] eGFR- Amer. >60 Normal >60 [facility] Comment on above: Performed By: #### B MP, PTT ####[place] [phone] GFR/1.73 sq M predicted among non-blacks MDRD (S/P/Bld) [Vol rate/Area] mL/min/{1.73_m2} Normal >60 [facility] Comment on above: Performed By: #### B MP, PTT ####[place] [phone] Glucose [Mass/Vol] 121 mg/dL High 65-100 [facility] Comment on above: Performed By: #### B MP, PTT ####[place] [phone] Potassium [Moles/Vol] 3.7 mmol/L Normal 3.5-5.0 [facility] Comment on above: Performed By: #### B MP, PTT ####[place] [phone] Sodium [Moles/Vol] 140 mmol/L Normal 135-146 [facility] Comment on above: Performed By: #### B MP, PTT ####[place] [phone] Urea nitrogen [Mass/Vol] 11 mg/dL Normal 10-25 [facility] Comment on above: Performed By: #### B MP, PTT ####[place] [phone] CBCon 10-20-2019 Erythrocyte distribution width (RBC) [Ratio] 17.2 % High 11.5-15.0 [facility] Comment on above: Performed By: #### C BC, PT, PTTAC ####[place] [phone] Hematocrit (Bld) [Volume fraction] 29.0 % Low 39.0-51.0 [facility] Comment on above: Performed By: #### C BC, PT, PTTAC ####[place] [phone] Hemoglobin (Bld) [Mass/Vol] 9.1 g/dL Low 13.0-17.0 [facility] Comment on above: Performed By: #### C BC, PT, PTTAC ####[place] [phone] MCH (RBC) [Entitic mass] 30.3 pG Normal 26.0-34.0 [facility] Comment on above: Performed By: #### C BC, PT, PTTAC ####[place] [phone] MCHC (RBC) [Mass/Vol] 31.4 g/dL Normal 30.5-36.0 [facility] Comment on above: Performed By: #### C BC, PT, PTTAC ####[place] [phone] MCV (RBC) [Entitic vol] 96.7 fL Normal 80.0-100.0 [facility] Comment on above: Performed By: #### C BC, PT, PTTAC ####[place] [phone] Platelet mean volume (Bld) [Entitic vol] 9.3 fL Normal 9.0-12.7 [facility] Comment on above: Performed By: #### C BC, PT, PTTAC ####[place] [phone] Platelets (Bld) [#/Vol] 437 10*3/uL High 150-400 [facility] Comment on above: Performed By: #### C BC, PT, PTTAC ####[place] [phone] RBC (Bld) [#/Vol] 3.00 10*6/uL Low 4.20-6.00 [facility] Comment on above: Performed By: #### C BC, PT, PTTAC ####[place] [phone] WBC (Bld) [#/Vol] 5.68 10*3/uL Normal 3.70-11.00 [facility] Comment on above: Performed By: #### C BC, PT, PTTAC ####[place] [phone] CBC and Differentialon 10-19 Abs Baso 0.06 k/uL Normal <0.11 [facility] Comment on above: Performed By: #### C BCDIF ####[place] [phone] Abs Beaver 0.56 k/uL Normal <0.87 [facility] Comment on above: Performed By: #### C BCDIF ####[place] [phone] Abs Neut 4.13 k/uL Normal 1.45-7.50 [facility] Comment on above: Performed By: #### C BCDIF ####[place] [phone] Basophils/100 WBC (Bld) 1.0 % Normal [facility] Comment on above: Performed By: #### C BCDIF ####[place] [phone] DTYPE Auto Diff Normal [facility] Comment on above: Performed By: #### C BCDIF ####[place] [phone] Eosinophils (Bld) [#/Vol] 0.37 10*3/uL Normal <0.46 [facility] Comment on above: Performed By: #### C BCDIF ####[place] [phone] Eosinophils/100 WBC (Bld) 6.1 % Normal [facility] Comment on above: Performed By: #### C BCDIF ####[place] [phone] Erythrocyte distribution width (RBC) [Ratio] 17.3 % High 11.5-15.0 [facility] Comment on above: Performed By: #### C BCDIF ####[place] [phone] Hematocrit (Bld) [Volume fraction] 28.9 % Low 39.0-51.0 [facility] Comment on above: Performed By: #### C BCDIF ####[place] [phone] Hemoglobin (Bld) [Mass/Vol] 8.9 g/dL Low 13.0-17.0 [facility] Comment on above: Performed By: #### C BCDIF ####[place] [phone] Lymphocytes (Bld) [#/Vol] 0.99 10*3/uL Low 1.00-4.00 [facility] Comment on above: Performed By: #### C BCDIF ####[place] [phone] Lymphocytes/100 WBC (Bld) 16.2 % Normal [facility] Comment on above: Performed By: #### C BCDIF ####[place] [phone] MCH (RBC) [Entitic mass] 29.7 pG Normal 26.0-34.0 [facility] Comment on above: Performed By: #### C BCDIF ####[place] [phone] MCHC (RBC) [Mass/Vol] 30.8 g/dL Normal 30.5-36.0 [facility] Comment on above: Performed By: #### C BCDIF ####[place] [phone] MCV (RBC) [Entitic vol] 96.3 fL Normal 80.0-100.0 [facility] Comment on above: Performed By: #### C BCDIF ####[place] [phone] Monocytes/100 WBC (Bld) 9.2 % Normal [facility] Comment on above: Performed By: #### C BCDIF ####[place] [phone] Neutrophils/100 WBC (Bld) 67.5 % Normal [facility] Comment on above: Performed By: #### C BCDIF ####[place] [phone] Platelet mean volume (Bld) [Entitic vol] 9.3 fL Normal 9.0-12.7 [facility] Comment on above: Performed By: #### C BCDIF ####[facility] [place], [place] [phone] Platelets (Bld) [#/Vol] 454 10*3/uL High 150-400 [facility] Comment on above: Performed By: #### C BCDIF ####[place] [address] [place], [place] [phone] RBC (Bld) [#/Vol] 3.00 10*6/uL Low 4.20-6.00 [facility] Comment on above: Performed By: #### C BCDIF ####[facility] [place], [place] [phone] WBC (Bld) [#/Vol] 6.11 10*3/uL Normal 3.70-11.00 [facility] Comment on above: Performed By: #### C BCDIF ####[facility] [place], [place] [phone] NURSING PROGon 10-20-2019 NURSING PROG HNO ID: [id number] Author: Cornelius (Rn) ОЛЕГ Gonzalez Service: Nursing Author Type: Registered Nurse Type: Nursing Progress Note Filed: 10/20/2019 6:11 PM Note Text: Nursing Progress Note Patient Name: Pedro Pablo Sierra Patient Location: [id number]/[facility]-0 [facility]-01 __ Daily Note: 0700 Bedside report received from previous shift RN. 0800 Assessment completed and charted. Neuro intact. VSS. Heparin gtt infusing. See flowsheets. 1200 Reassessment completed and charted. 1600 Reassessment completed and charted. 1900 Bedside report given to oncoming RN. This note was completed by: Cornelius Gonzalez RN [facility] NURSING PROG HNO ID: [id number] Author: Mackenzie NessRn) ОЛЕГ Valero Service: Nursing Author Type: Registered Nurse Type: Nursing Progress Note Filed: 10/19/2019 11:30 PM Note Text: Nursing Progress Note Patient Name: Pedro Pablo Sierra Patient Location: [id number]/[facility]0 [facility]- __ Daily Note: 2304 Pt x-, Joseph [...] note was completed by: Mackenzie Valero RN [facility] PROGRESSon 10-20-2019 PROGRESS HNO ID: [id number] Author: Deni Xiao Service: Critical Care Author [...] CURRENT MEDICATIONS: Medications reviewed. Please refer to [facility] for list of inpatient medications. DIAGNOSTIC TESTS: [...] 20, 2019 TIME: 11:34 AM PAGER/CONTACT #: [phone] [facility] PROGRESS HNO ID: [id number] Author: Florence Roman (Pharmacist) Service: Pharmacy Author [...] please contact Florence Roman PharmD at mobile [phone]. Age: [age] year old Allergies: ALLERGIES No [...] 1112 28.0 (H) Florence Roman, Pharm D, [facility] PROGRESS HNO ID: [id number] Author: Lesly Salvador Service: Vascular Surgery Author [...] -- 10/17/19 0215 vte current anticoag therapy (tn,ct) 10/17/19 0215 pneumatic compression stockings [place] VTE Prophylaxis: VTE prophylaxis appropriate ALLERGIES [...] on 10/10/19 for hematoma evacuation,?Left EIA to LABORATORY MACHINIST bypass with 7mm ringed PTFE, retrograde open [...] 19, 2019 TIME: 6:52 AM PAGER/CONTACT #: [phone] Pt seen and examined. Stable exam since [...] MD October 20, 2019 5:02 PM Normal [facility] PTT,Anticoag Therapyon 10-19 aPTT Coag (Bld) [Time] 33.3 s High 23.0-32.4 [facility] Comment on above: Result Comment: Unfr [...] laboratory APTT reagent in use throughout the [facility]. Performed By: #### P [facility] ####[facility] [place], [place] [phone] aPTT Coag (Bld) [Time] 28.9 s Normal 23.0-32.4 [facility] Comment on above: Result Comment: Unfr [...] laboratory APTT reagent in use throughout the [facility]. Performed By: #### C BC, PT, PTTAC ####[place] [id number] [place], [place] [phone] Protimeon 10-20-2019 PT Coag (PPP) [Time] 11.1 s Normal 9.7-13.0 [facility] Comment on above: Performed By: #### C BC, PT, PTTAC ####[id number] [place], [place] [phone] PT Coag (PPP) [Time] 1.0 s Normal 0.9-1.3 [facility] Comment on above: Result Comment: Teri min [...] Chest 2012, 141:7S-47S Gio RA, et al. [facility] 2017, 70: 252-289 Performed By: #### C BC, PT, PTTAC ####[address] [place], [place] [phone] Basic Metabolic Panlon 10-18 Anion gap [Moles/Vol] 14 mmol/L Normal 9-18 [facility] Comment on above: Performed By: #### B MP ####[place] [phone] Calcium [Mass/Vol] 8.0 mg/dL Low 8.5-10.5 [facility] Comment on above: Performed By: #### B MP ####[place] [phone] Chloride [Moles/Vol] 101 mmol/L Normal 98-110 [facility] Comment on above: Performed By: #### B MP ####[place] [phone] CO2 [Moles/Vol] 25 mmol/L Normal 23-32 [facility] Comment on above: Performed By: #### B MP ####[place] [phone] Creatinine [Mass/Vol] 0.83 mg/dL Normal 0.70-1.40 [facility] Comment on above: Result Comment: Revi ewed Performed By: #### B MP ####[place] [phone] eGFR- Amer. >60 Normal >60 [facility] Comment on above: Performed By: #### B MP ####[place] [phone] GFR/1.73 sq M predicted among non-blacks MDRD (S/P/Bld) [Vol rate/Area] mL/min/{1.73_m2} Normal >60 [facility] Comment on above: Performed By: #### B MP ####[place] [phone] Glucose [Mass/Vol] 110 mg/dL High 65-100 [facility] Comment on above: Performed By: #### B MP ####[place] [phone] Potassium [Moles/Vol] 3.5 mmol/L Normal 3.5-5.0 [facility] Comment on above: Performed By: #### B MP ####[place] [phone] Sodium [Moles/Vol] 140 mmol/L Normal 135-146 [facility] Comment on above: Performed By: #### B MP ####[place] [phone] Urea nitrogen [Mass/Vol] 8 mg/dL Low 10-25 [facility] Comment on above: Performed By: #### B MP ####[place] [phone] CBC and Differentialon 10-18 Abs Baso 0.03 k/uL Normal <0.11 [facility] Comment on above: Performed By: #### C BCDIF ####[place] [phone] Abs Beaver 0.46 k/uL Normal <0.87 [facility] Comment on above: Performed By: #### C BCDIF ####[place] [phone] Abs Neut 4.79 k/uL Normal 1.45-7.50 [facility] Comment on above: Performed By: #### C BCDIF ####[place] [phone] Basophils/100 WBC (Bld) 0.4 % Normal [facility] Comment on above: Performed By: #### C BCDIF ####[place] [phone] DTYPE Auto Diff Normal [facility] Comment on above: Performed By: #### C BCDIF ####[place] [phone] Eosinophils (Bld) [#/Vol] 0.27 10*3/uL Normal <0.46 [facility] Comment on above: Performed By: #### C BCDIF ####[place] [phone] Eosinophils/100 WBC (Bld) 4.0 % Normal [facility] Comment on above: Performed By: #### C BCDIF ####[place] [phone] Erythrocyte distribution width (RBC) [Ratio] 17.2 % High 11.5-15.0 [facility] Comment on above: Performed By: #### C BCDIF ####[place] [phone] Hematocrit (Bld) [Volume fraction] 28.5 % Low 39.0-51.0 [facility] Comment on above: Performed By: #### C BCDIF ####[place] [phone] Hemoglobin (Bld) [Mass/Vol] 8.8 g/dL Low 13.0-17.0 [facility] Comment on above: Performed By: #### C BCDIF ####[place] [phone] Lymphocytes (Bld) [#/Vol] 1.17 10*3/uL Normal 1.00-4.00 [facility] Comment on above: Performed By: #### C BCDIF ####[place] [phone] Lymphocytes/100 WBC (Bld) 17.4 % Normal [facility] Comment on above: Performed By: #### C BCDIF ####[place] [phone] MCH (RBC) [Entitic mass] 29.6 pG Normal 26.0-34.0 [facility] Comment on above: Performed By: #### C BCDIF ####[place] [phone] MCHC (RBC) [Mass/Vol] 30.9 g/dL Normal 30.5-36.0 [facility] Comment on above: Performed By: #### C BCDIF ####[address] [phone] MCV (RBC) [Entitic vol] 96.0 fL Normal 80.0-100.0 [facility] Comment on above: Performed By: #### C BCDIF ####[address] [phone] Monocytes/100 WBC (Bld) 6.8 % Normal [facility] Comment on above: Performed By: #### C BCDIF ####[place] [phone] Neutrophils/100 WBC (Bld) 71.4 % Normal [facility] Comment on above: Performed By: #### C BCDIF ####[place] [phone] Platelet mean volume (Bld) [Entitic vol] 9.4 fL Normal 9.0-12.7 [facility] Comment on above: Performed By: #### C BCDIF ####[place] [phone] Platelets (Bld) [#/Vol] 425 10*3/uL High 150-400 [facility] Comment on above: Performed By: #### C BCDIF ####[address] [phone] RBC (Bld) [#/Vol] 2.97 10*6/uL Low 4.20-6.00 [facility] Comment on above: Performed By: #### C BCDIF ####[address] [phone] WBC (Bld) [#/Vol] 6.72 10*3/uL Normal 3.70-11.00 [facility] Comment on above: Performed By: #### C BCDIF ####[address] [phone] NURSING PROGon 10-19-2019 NURSING PROG HNO ID: [id number] Author: Bartchristel Ac RN Service: Critical Care Author Type: Registered Nurse Type: Nursing Progress Note Filed: 10/19/2019 7:29 PM Note Text: Nursing Progress Note Patient Name: Pedro Pablo Sierra Patient Location: [id number]/[facility]0 249 __ Daily Note: 0700 Assumed care of [...] note was completed by: BART AC RN [facility] NURSING PROG HNO ID: [id number] Author: Fran NessRn) ОЛЕГ Lucero Service: ? Author Type: Registered Nurse Type: Nursing Progress Note Filed: 10/19/2019 6:50 AM Note Text: Nursing Progress Note Patient Name: Pedro Pablo Sierra Patient Location: [id number]/[facility]-0 249- __ Daily Note: 1900: Patient handoff at bedside, assumed care of patient 2000: Assessment 0000: Reassessment 0100: Rounds at bedside with Dr. Randle, notified by this RN of increased abdominal firmness. Patient assessed with Dr. Randle, no new orders 0400: Reassessment 0700: Patient handoff at bedside, end of patient care This note was completed by: Fran Lucero RN [facility] NUTRITIONon 10-19-2019 NUTRITION HNO ID: [id number] Author: Muna Rivas Service: Nutrition Therapy Author [...] and weekends please page the Group Pager [phone] [facility] PROGRESSon 10-19-2019 PROGRESS HNO ID: [id number] Author: Florence Roman (Pharmacist) Service: Pharmacy Author [...] have any questions, please contact Florence Roman PharmNelson at mobile [phone]. Age: [age] year old Allergies: ALLERGIES No [...] 28.0 (H) Florence Roman, Pharm D, BCPS [facility] PROGRESS HNO ID: [id number] Author: Lesly Salvador Service: Vascular Surgery Author [...] Prophylaxis/Anticoagul ants 10/17/19214 vte current anticoag therapy ([place]) 10/17/19214 pneumatic compression stockings [place] VTE Prophylaxis: VTE prophylaxis appropriate ALLERGIES [...] INR 1.5* 1.9* 4.8* 5.1* Assessment/Plan Impression: Pedr oPablo Sierra is a 69 year old White [...] on 10/10/19 for hematoma evacuation,?Left EIA to LABORATORY MACHINIST bypass with 7mm ringed PTFE, retrograde open [...] 19, 2019 TIME: 6:52 AM PAGER/CONTACT #: [phone] Agree with the above note. The patient [...] that location. The patient understands and agrees. [facility] ANES POSTPROC EVALon 020 ANES POSTPROC EVAL HNO ID: [id number] Author: Del Garner Service: ? Author Type: Anesthesiologist Type: Anesthesia Postprocedure Evaluation Filed: 10/18/2019 3:45 PM Note Text: POST ANESTHESIA EVALUATION NOTE : 1950 Procedure Summary Date: 10/18/19 Room / Location: ORA / FV OR Anesthesia Start: 1245 Anesthesia [...] October 18, 2019 TIME: 3:45 PM CSN: [id number] [facility] ANES PRE-OPon 10-18-2019 ANES PRE-OP HNO ID: [id number] Author: Del Garner Service: ? Author Type: [...] (+) Hypertension (+) PVD (peripheral vascular disease) ([facility]) (+) s/p left femoral endarterectomy/aortoil iac [...] movements. - COMPOUNDED PRESCRIPTION Aerosol supplies Dx:J44.1 NPI#[id number] - ipratropium-albuterol (DUONEB) 0.5 mg-3 mg(2.5 mg [...] October 18, 2019 TIME: 12:11 PM CSN: [id number] Normal [facility] Anaerobe Cultureon 0 Anaerobe Culture Sp. Request/Comment: - Eswab Culture Result - Negative for anaerobes. Normal [facility] Comment on above: Performed By: #### A NACUL ####[facility] [address] [place], [place] [phone] Basic Metabolic Panlon 10-17 Anion gap [Moles/Vol] 12 mmol/L Normal 9-18 [facility] Comment on above: Performed By: #### P T, BMP, CBCDIF ####[facility] [place], [place] [phone] Calcium [Mass/Vol] 8.4 mg/dL Low 8.5-10.5 [facility] Comment on above: Performed By: #### P T, BMP, CBCDIF ####[phone] Chloride [Moles/Vol] 103 mmol/L Normal 98-110 [facility] Comment on above: Performed By: #### P T, BMP, CBCDIF ####[place] [phone] CO2 [Moles/Vol] 25 mmol/L Normal 23-32 [facility] Comment on above: Performed By: #### P T, BMP, CBCDIF ####[place] [phone] Creatinine [Mass/Vol] 0.67 mg/dL Low 0.70-1.40 [facility] Comment on above: Performed By: #### P T, BMP, CBCDIF ####[place] [phone] eGFR- Amer. >60 Normal >60 [facility] Comment on above: Performed By: #### P T, BMP, CBCDIF ####[place] [phone] GFR/1.73 sq M predicted among non-blacks MDRD (S/P/Bld) [Vol rate/Area] mL/min/{1.73_m2} Normal >60 [facility] Comment on above: Performed By: #### P T, BMP, CBCDIF ####[place] [phone] Glucose [Mass/Vol] 87 mg/dL Normal 65-100 [facility] Comment on above: Performed By: #### P T, BMP, CBCDIF ####[place] [phone] Potassium [Moles/Vol] 3.5 mmol/L Normal 3.5-5.0 [facility] Comment on above: Performed By: #### P T, BMP, CBCDIF ####[place] [phone] Sodium [Moles/Vol] 140 mmol/L Normal 135-146 [facility] Comment on above: Performed By: #### P T, BMP, CBCDIF ####[place] [phone] Urea nitrogen [Mass/Vol] 7 mg/dL Low 10-25 [facility] Comment on above: Performed By: #### P T, BMP, CBCDIF ####[place] [phone] CBC and Differentialon 10-17 Abs Baso 0.04 k/uL Normal <0.11 [facility] Comment on above: Performed By: #### P T, BMP, CBCDIF ####[place] [phone] Abs Beaver 0.47 k/uL Normal <0.87 [facility] Comment on above: Performed By: #### P T, BMP, CBCDIF ####[place] [phone] Abs Neut 3.25 k/uL Normal 1.45-7.50 [facility] Comment on above: Performed By: #### P T, BMP, CBCDIF ####[place] [phone] Absolute nRBC <0.01 Normal <0.01 [facility] Comment on above: Performed By: #### P T, BMP, CBCDIF ####[place] [phone] Basophils/100 WBC (Bld) 0.8 % Normal [facility] Comment on above: Performed By: #### P T, BMP, CBCDIF ####[place] [phone] DTYPE Auto Diff Normal [facility] Comment on above: Performed By: #### P T, BMP, CBCDIF ####[place] [phone] Eosinophils (Bld) [#/Vol] 0.23 10*3/uL Normal <0.46 [facility] Comment on above: Performed By: #### P T, BMP, CBCDIF ####[place] [phone] Eosinophils/100 WBC (Bld) 4.6 % Normal [facility] Comment on above: Performed By: #### P T, BMP, CBCDIF ####[place] [phone] Erythrocyte distribution width (RBC) [Ratio] 17.1 % High 11.5-15.0 [facility] Comment on above: Performed By: #### P T, BMP, CBCDIF ####[place] [phone] Hematocrit (Bld) [Volume fraction] 29.1 % Low 39.0-51.0 [facility] Comment on above: Performed By: #### P T, BMP, CBCDIF ####[place] [phone] Hemoglobin (Bld) [Mass/Vol] 9.1 g/dL Low 13.0-17.0 [facility] Comment on above: Performed By: #### P T, BMP, CBCDIF ####[place] [phone] Lymphocytes (Bld) [#/Vol] 1.00 10*3/uL Normal 1.00-4.00 [facility] Comment on above: Performed By: #### P T, BMP, CBCDIF ####[place] [phone] Lymphocytes/100 WBC (Bld) 20.0 % Normal [facility] Comment on above: Performed By: #### P T, BMP, CBCDIF ####[place] [phone] MCH (RBC) [Entitic mass] 29.9 pG Normal 26.0-34.0 [facility] Comment on above: Performed By: #### P T, BMP, CBCDIF ####[place] [phone] MCHC (RBC) [Mass/Vol] 31.3 g/dL Normal 30.5-36.0 [facility] Comment on above: Performed By: #### P T, BMP, CBCDIF ####[place] [phone] MCV (RBC) [Entitic vol] 95.7 fL Normal 80.0-100.0 [facility] Comment on above: Performed By: #### P T, BMP, CBCDIF ####[place] [phone] Monocytes/100 WBC (Bld) 9.4 % Normal [facility] Comment on above: Performed By: #### P T, BMP, CBCDIF ####[place] [phone] Neutrophils/100 WBC (Bld) 65.2 % Normal [facility] Comment on above: Performed By: #### P T, BMP, CBCDIF ####[place] [phone] NRBCs 0.0 /100 WBC Normal 0 [facility] Comment on above: Performed By: #### P T, BMP, CBCDIF ####[place] [phone] Platelet mean volume (Bld) [Entitic vol] 9.6 fL Normal 9.0-12.7 [facility] Comment on above: Performed By: #### P T, BMP, CBCDIF ####[place] [phone] Platelets (Bld) [#/Vol] 384 10*3/uL Normal 150-400 [facility] Comment on above: Performed By: #### P T, BMP, CBCDIF ####[facility] [place], [place] [phone] RBC (Bld) [#/Vol] 3.04 10*6/uL Low 4.20-6.00 [facility] Comment on above: Performed By: #### P T, BMP, CBCDIF ####[facility] [place], [place] [phone] WBC (Bld) [#/Vol] 4.99 10*3/uL Normal 3.70-11.00 [facility] Comment on above: Performed By: #### P T, BMP, CBCDIF ####[facility] [place], [place] [phone] HISTORY PHYSICALon 0 HISTORY PHYSICAL HNO ID: [id number] Author: Maria Ines Randle Service: Critical Care Author Type: Resident Type: HANDP Filed: 10/18/2019 6:44 PM Note Text: Surgical Intensive Care Unit History and Physical Pedro Pablo Sierra [id number] Admit Date: 10/17/2019 1:34 AM Home Sales Service Professional: Dr. Mcnamara Surgeon: Dr. Lopez Operation: REASON [...] for exploration and revasc due to occluded LABORATORY MACHINIST. In the OR, he underwent hematoma evacuation,?Left EIA to LABORATORY MACHINIST bypass with 7mm ringed PTFE, retrograde open [...] for exploration and revasc due to occluded LABORATORY MACHINIST. 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 Angioplasty left LABORATORY MACHINIST - REVSC OPN/PRG FEM/POP W/ANGIOPLASTY UNI 07/02/2014 [...] Ines Randle MD General Surgery PGY 2 [id number] October 18, 2019 Normal [facility] NURSING PROGon 10-18-2019 NURSING PROG HNO ID: [id number] Author: Yarely NessRn) ОЛЕГ Marcelino Service: Critical Care Author Type: Registered Nurse Type: Nursing Progress Note Filed: 10/18/2019 5:45 PM Note Text: Nursing Progress Note Patient Name: Pedro Pablo Sierra Patient Location: [id number]/[facility]-0 249-01 __ Daily Note: 1720: Pt arrived to SICU; placed on tele monitor. Dr. Mcnamara at bedside. 1730: Assessment complete; see flowsheets. 1900: Bedside report given to oncoming RN. This note was completed by: Yarely Marcelino RN [facility] NURSING PROG HNO ID: [id number] Author: Emilie NessRn) ОЛЕГ Mcclelland Service: ? [...] note was completed by: Emilie Mcclelland RN [facility] NURSING PROG HNO ID: [id number] Author: Renay NessRn) ОЛЕГ Paez Service: Nursing Author Type: Registered Nurse Type: Nursing Progress Note Filed: 10/18/2019 4:31 AM Note Text: Nursing Progress Note Patient Name: Pedro Pablo Sierra Patient Location: [id number]/FV-[id number]-0 534-01 __ Daily Note: Patient has been NPO since midnight and IV fluids started as scheduled. Surgery scheduled for this morning. Dressing to left groin still with large amount of serous drainage. Dressing changed as needed. Pain med PRN. Will cont to monitor. This note was completed by: Renay Paez RN Normal [facility] OPERATIVE NOon 10-18-2019 OPERATIVE NO HNO ID: [id number] Author: Lesly Salvador Service: Vascular Surgery Author Type: Physician Type: Operative Report Filed: 10/23/2019 2:50 PM Note Text: [facility] - Operative Report PEDRO PABLO SIERRA Shannan : 1950 AGE: 69. SEX: M PATIENT TYPE: I HOSP SVC: PEDRO LOCATION: 061948 ATTENDING PHYSICIAN: LESLY SALVADOR CSN NUMBER: [id number] DATE OF SURGERY/PROCEDURE: 10/18/2019 INCISION/PROCEDURE START TIME: 1331 hours. INCISION CLOSE/PROCEDURE END TIME: 1510 hours. PREOPERATIVE DIAGNOSIS: Left groin wound seroma and infection, status post revascularization of left leg. POSTOPERATIVE DIAGNOSIS: 1. Left groin wound seroma and infection, status post revascularization of left leg. 2. Presumed [place] left iliac, profunda bypass infection. SURGEON: Lesly Lopez M.D. RN CARDIAC CATH: Ayad Tompkins MD. SURGERY/PROCEDURE: 1. Sartorius muscle [...] graft was strongly pulsatile, as is the [place] femoral artery distally. There is no significant [...] appropriately to completely cover the graft and [place] artery, with a tongue of the muscle [...] to completely cover the iliofemoral graft and [place] femoral artery. The inguinal ligament had been [...] a result of the 09/03/19 order by [facility] of Health Director Libby Harris M.D. to cancel non-essential surgeries that would use PPE, unless special criteria are met, I have reviewed the clinical record for this patient and have determined that the scheduled procedure meets the criteria to go forward because there is a threat to the patient's life if the surgery or procedure is not performed. Lesly Lopez M.D. DM:[id number] /[id number] cc:Ryan May M.D. * Dr. Tompkins [facility] PROGRESSon 10-18-2019 PROGRESS HNO ID: [id number] Author: Lit Anderson (Pharmacist) Service: Pharmacy Author [...] have any questions, please contact Lit at [phone]. Age: [age] year old Allergies: ALLERGIES No [...] 1112 28.0 (H) LIT ANDERSON, PHARMACIST Normal [facility] Protimeon 10-18-2019 PT Coag (PPP) [Time] 16.2 s High 9.7-13.0 [facility] Comment on above: Performed By: #### P T, BMP, CBCDIF ####[facility] [place], [place] [phone] PT Coag (PPP) [Time] 1.5 s High 0.9-1.3 [facility] Comment on above: Result Comment: Teri min [...] Chest 2012, 141:7S-47S Gio KENNY, et al. [facility] 2017, 70: 252-289 Performed By: #### P Destiny, KATHY, CBCDIF ####[address] [phone] SURGICAL PATHOLOGYon SURGICAL PATHOLOGY Specimen originated from [facility] Specimen #: [id number] Submitting Physician: Lesly Lopez M.D. FINAL DIAGNOSIS [...] to 3.5 x 3 x 1.5 cm. Retail Warehouse Associate sections are submitted in one cassette. WINNIE/dwain 10/21/2019 Gross examination performed at [facility], [address] [place] [address] Date of Report: 10/23/2019 Date of Procedure: 10/18/2019 Date of Receipt: 10/21/2019 Submitted by: Lesly Lopez M.D. Location: [facility] Diagnostic interpretation performed at [facility], [address] [facility] [address]. CLIA Number: [id number] [facility] Wound Culture/Stainon 2019 Wound [...] F Ertapenem SUSCEPTIBLE <=0.5 F Critically abnormal [facility] Comment on above: Performed By: #### W CUL ####[facility] [address] [place], [place] [phone] ALLIED HEALTHon 10-17-2019 ALLIED HEALTH HNO ID: [id number] Author: Angela Anderson (Chaplain) Service: Spiritual Care Author Type: Type: Allied Health Filed: 10/17/2019 12:25 PM Note Text: SPIRITUAL CARE ASSESSMENT SERVICE DATE: 10/17/2019 Visit with: Patient Length of visit (minutes): 10 Baptist / Spirituality: Jewish Reason: Referral; pre-surgery ASSESSMENT Emotional Disposition: Angry, Helpless and Lonely INTERVENTIONS Empowerment: Normalized experience of patient/family Exploration: Explored emotional needs and resources and Explored spiritual needs and resources OUTCOMES Patient debriefed/defused their experience PLAN Will follow up as requested SIGNATURE: Chaplain Riley PATIENT NAME: Pedro Pablo Sierra DATE: October 17, 2019 TIME: 12:23 PM PAGER/CONTACT #: [phone] [facility] HEALTH HNO ID: [id number] Author: DEANNE Rucker (Ct) Service: Radiology Author Type: Radiology Technician Type: Allied Health Filed: 10/17/2019 11:29 AM [...] Rucker October 17, 2019 11:28 AM Normal [facility] APTTon 10-17-2019 aPTT Coag (Bld) [Time] 45.1 s High 23.0-32.4 [facility] Comment on above: Result Comment: Unfr [...] laboratory APTT reagent in use throughout the [facility]. Performed By: #### C BC, CMP, MG1, PHOS, PTT, PT ####[facility] [place], [place] [phone] CASE MGT INIT ASSESon 2019 CASE MGT INIT [facility] HNO ID: [id number] Author: Mary Carmen (Rn) Patito Meredith RN Service: Nursing Author Type: Registered Nurse Type: Care Mgt Initial Assessment Filed: 10/17/2019 2:57 PM Note Text: CARE MANAGEMENT: ASSESSMENT AND DISCHARGE PLAN SERVICE DATE: October 17, 2019 SERVICE TIME: 12:52 PM PRIMARY CARE PHYSICIAN: DAIJA MORTON MD ADMISSION STATUS: Observation Needs Prior to Discharge: To Be Determined MEDICAL: [facility] 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 Health Issues Impacting Discharge Plan: Newly diagnosed Newly Diagnosed: Left groin wound drainage Last Discharge Date: 10/14/19 Is this Within the Past 30 days? Last discharge within 30 days: Yes Is this a planned readmission?: No Unplanned Reason: Other: See Comment(non healing wound) Followed Up with Appointment Prior to Admission: Appointment completed Advance Directive: Current Advance Directive: Health Care Power of Yacht Rigger In Chart: Yes Up To Date and [...] Home Care?: Home Health Care Agency;Meals on Wheels([facility] [phone] SN/OT/PT) Equipment Prior to Admission: Walker SOCIAL: Living Arrangements: Home Lives With: Alone Financial Resources: RetiredPrimary Contact: Extended Emergency Contact Information Primary Emergency Contact: Michelle Richmond Mobile Relation: Daughter Secondary Emergency Contact: Joseph Burrell Mobile Relation: Relative Supportive Patient Contact:: Yes Contact Resources: Other;Significant Other Other Contact Name/Phone: Liseth reaves/ Ann Home ([facility] on [address]) [phone] Social Needs Food insecurity Worry: Sometimes true [...] Completely I feel financially burdened by my zif-ma-gkmxor expenses for my prescription medication:: 0 - [...] depends on his daughter and ex (Joseph [phone]) for transportation. He receives waiver services w/ [facility] for SN/OT. He receives Meals on Wheels 9 meals/wk plus some groceries. Patient to have exploration of Inguinal site today 10/16. Additional care needs TBD. TCC remains available for plan of care and transitional care needs as they arise. 1445: Liseth w/ [facility] ([facility] on aging) [phone] call for to update on svcs received. [facility] patient receives waiver services through [facility] for HHC (SN/PT/OT), meals, and emergency health line. Would like to be updated on discharge plans once known. SIGNATURE: Mary Carmen Meredith RN PATIENT NAME: Pedro Pablo Sierra DATE: October 17, 2019 TIME: 12:52 PM PAGER/CONTACT #: [phone] Normal [facility] CBCon 10-17-2019 Erythrocyte distribution width (RBC) [Ratio] 16.9 % High 11.5-15.0 [facility] Comment on above: Performed By: #### C BC, CMP, MG1, PHOS, PTT, PT ####[place] [phone] Hematocrit (Bld) [Volume fraction] 32.3 % Low 39.0-51.0 [facility] Comment on above: Performed By: #### C BC, CMP, MG1, PHOS, PTT, PT ####[place] [phone] Hemoglobin (Bld) [Mass/Vol] 10.4 g/dL Low 13.0-17.0 [facility] Comment on above: Performed By: #### C BC, CMP, MG1, PHOS, PTT, PT ####[place] [phone] MCH (RBC) [Entitic mass] 30.3 pG Normal 26.0-34.0 [facility] Comment on above: Performed By: #### C BC, CMP, MG1, PHOS, PTT, PT ####[place] [phone] MCHC (RBC) [Mass/Vol] 32.2 g/dL Normal 30.5-36.0 [facility] Comment on above: Performed By: #### C BC, CMP, MG1, PHOS, PTT, PT ####[place] [phone] MCV (RBC) [Entitic vol] 94.2 fL Normal 80.0-100.0 [facility] Comment on above: Performed By: #### C BC, CMP, MG1, PHOS, PTT, PT ####[place] [phone] Platelet mean volume (Bld) [Entitic vol] 9.4 fL Normal 9.0-12.7 [facility] Comment on above: Performed By: #### C BC, CMP, MG1, PHOS, PTT, PT ####[place] [phone] Platelets (Bld) [#/Vol] 402 10*3/uL High 150-400 [facility] Comment on above: Result Comment: Resu lt checked and verified Performed By: #### C BC, CMP, MG1, PHOS, PTT, PT ####[place] [phone] RBC (Bld) [#/Vol] 3.43 10*6/uL Low 4.20-6.00 [facility] Comment on above: Performed By: #### C BC, CMP, MG1, PHOS, PTT, PT ####[place] [phone] WBC (Bld) [#/Vol] 7.04 10*3/uL Normal 3.70-11.00 [facility] Comment on above: Performed By: #### C BC, CMP, MG1, PHOS, PTT, PT ####[place] [phone] CBC and Differentialon 10-16 Abs Baso 0.06 k/uL Normal <0.11 [facility] Comment on above: Performed By: #### P T, CMP, CBCDIF ####[place] [phone] Abs Beaver 0.63 k/uL Normal <0.87 [facility] Comment on above: Performed By: #### P T, CMP, CBCDIF ####[place] [phone] Abs Neut 4.18 k/uL Normal 1.45-7.50 [facility] Comment on above: Performed By: #### P T, CMP, CBCDIF ####[place] [phone] Absolute nRBC <0.01 Normal <0.01 [facility] Comment on above: Performed By: #### P T, CMP, CBCDIF ####[place] [phone] Basophils/100 WBC (Bld) 1.0 % Normal [facility] Comment on above: Performed By: #### P T, CMP, CBCDIF ####[place] [address] DTYPE Auto Diff Normal [facility] Comment on above: Performed By: #### P T, CMP, CBCDIF ####[place] [address] Eosinophils (Bld) [#/Vol] 0.16 10*3/uL Normal <0.46 [facility] Comment on above: Performed By: #### P T, CMP, CBCDIF ####[place] [address] Eosinophils/100 WBC (Bld) 2.6 % Normal [facility] Comment on above: Performed By: #### P T, CMP, CBCDIF ####[place] [address] Erythrocyte distribution width (RBC) [Ratio] 16.8 % High 11.5-15.0 [facility] Comment on above: Performed By: #### P T, CMP, CBCDIF ####[place] [address] Hematocrit (Bld) [Volume fraction] 29.9 % Low 39.0-51.0 [facility] Comment on above: Performed By: #### P T, CMP, CBCDIF ####[place] [address] Hemoglobin (Bld) [Mass/Vol] 9.5 g/dL Low 13.0-17.0 [facility] Comment on above: Performed By: #### P T, CMP, CBCDIF ####[place] [address] Lymphocytes (Bld) [#/Vol] 1.07 10*3/uL Normal 1.00-4.00 [facility] Comment on above: Performed By: #### P T, CMP, CBCDIF ####[address] [phone] Lymphocytes/100 WBC (Bld) 17.5 % Normal [facility] Comment on above: Performed By: #### P T, CMP, CBCDIF ####[place] [phone] MCH (RBC) [Entitic mass] 30.2 pG Normal 26.0-34.0 [facility] Comment on above: Performed By: #### P T, CMP, CBCDIF ####[place] [phone] MCHC (RBC) [Mass/Vol] 31.8 g/dL Normal 30.5-36.0 [facility] Comment on above: Performed By: #### P T, CMP, CBCDIF ####[place] [phone] MCV (RBC) [Entitic vol] 94.9 fL Normal 80.0-100.0 [facility] Comment on above: Performed By: #### P T, CMP, CBCDIF ####[place] [phone] Monocytes/100 WBC (Bld) 10.3 % Normal [facility] Comment on above: Performed By: #### P T, CMP, CBCDIF ####[place] [phone] Neutrophils/100 WBC (Bld) 68.6 % Normal [facility] Comment on above: Performed By: #### P T, CMP, CBCDIF ####[place] [phone] NRBCs 0.0 /100 WBC Normal 0 [facility] Comment on above: Performed By: #### P T, CMP, CBCDIF ####[place] [phone] Platelet mean volume (Bld) [Entitic vol] 9.6 fL Normal 9.0-12.7 [facility] Comment on above: Performed By: #### P T, CMP, CBCDIF ####[address] [phone] Platelets (Bld) [#/Vol] 362 10*3/uL Normal 150-400 [facility] Comment on above: Performed By: #### P T, CMP, CBCDIF ####[address] [phone] RBC (Bld) [#/Vol] 3.15 10*6/uL Low 4.20-6.00 [facility] Comment on above: Performed By: #### P T, CMP, CBCDIF ####[address] [phone] WBC (Bld) [#/Vol] 6.10 10*3/uL Normal 3.70-11.00 [facility] Comment on above: Performed By: #### P T, CMP, CBCDIF ####[address] [phone] CTA ABD/PEL/LOWER EXT W IVCO Non 10-17-2019 [...] on 10/10/19 for hematoma evacuation,?Left EIA to LABORATORY MACHINIST bypass with 7mm ringed PTFE, retrograde open [...] INTO THE FOOT. Additional findings as described. Dial Screw Assembler: SHANELL Transcribe Date/Time: Oct 17 2019 11:56A Dictated by : VIVIAN RASCON III, MD This examination was interpreted and the report reviewed and electronically signed by: VIVIAN RASCON III, MD on Oct 17 2019 12:55PM EST [id number] Normal [facility] Comp Metabolic Panelon 10-16 Albumin [Mass/Vol] 3.1 g/dL Low 3.5-5.0 [facility] Comment on above: Performed By: #### P T, CMP, CBCDIF ####[place] [id number] [place], [place] [phone] ALP [Catalytic activity/Vol] 60 U/L Normal 38-113 [facility] Comment on above: Performed By: #### P T, CMP, CBCDIF ####[address] [phone] ALT [Catalytic activity/Vol] 58 U/L High 5-50 [facility] Comment on above: Performed By: #### P T, CMP, CBCDIF ####[place] [phone] Anion gap [Moles/Vol] 12 mmol/L Normal 9-18 [facility] Comment on above: Performed By: #### P T, CMP, CBCDIF ####[place] [phone] AST [Catalytic activity/Vol] 56 U/L High 7-40 [facility] Comment on above: Performed By: #### P T, CMP, CBCDIF ####[place] [phone] Bilirubin [Mass/Vol] 0.4 mg/dL Normal 0.2-1.3 [facility] Comment on above: Performed By: #### P T, CMP, CBCDIF ####[place] [phone] Calcium [Mass/Vol] 8.0 mg/dL Low 8.5-10.5 [facility] Comment on above: Performed By: #### P T, CMP, CBCDIF ####[phone] Chloride [Moles/Vol] 103 mmol/L Normal 98-110 [facility] Comment on above: Performed By: #### P T, CMP, CBCDIF ####[place] [phone] CO2 [Moles/Vol] 24 mmol/L Normal 23-32 [facility] Comment on above: Performed By: #### P T, CMP, CBCDIF ####[place] [phone] Creatinine [Mass/Vol] 0.64 mg/dL Low 0.70-1.40 [facility] Comment on above: Performed By: #### P T, CMP, CBCDIF ####[place] [phone] eGFR- Amer. >60 Normal >60 [facility] Comment on above: Performed By: #### P T, CMP, CBCDIF ####[place] [phone] GFR/1.73 sq M predicted among non-blacks MDRD (S/P/Bld) [Vol rate/Area] mL/min/{1.73_m2} Normal >60 [facility] Comment on above: Performed By: #### P T, CMP, CBCDIF ####[place] [phone] Glucose [Mass/Vol] 104 mg/dL High 65-100 [facility] Comment on above: Performed By: #### P T, CMP, CBCDIF ####[place] [phone] Potassium [Moles/Vol] 3.2 mmol/L Low 3.5-5.0 [facility] Comment on above: Performed By: #### P T, CMP, CBCDIF ####[phone] Protein [Mass/Vol] 5.3 g/dL Low 6.0-8.4 [facility] Comment on above: Performed By: #### P T, CMP, CBCDIF ####[phone] Sodium [Moles/Vol] 139 mmol/L Normal 135-146 [facility] Comment on above: Performed By: #### P T, CMP, CBCDIF ####[place] [phone] Urea nitrogen [Mass/Vol] 14 mg/dL Normal 10-25 [facility] Comment on above: Performed By: #### P T, CMP, CBCDIF ####[place] [phone] Albumin [Mass/Vol] 3.5 g/dL Normal 3.5-5.0 [facility] Comment on above: Performed By: #### C BC, CMP, MG1, PHOS, PTT, PT ####[place] [phone] ALP [Catalytic activity/Vol] 65 U/L Normal 38-113 [facility] Comment on above: Performed By: #### C BC, CMP, MG1, PHOS, PTT, PT ####[place] [phone] ALT [Catalytic activity/Vol] 67 U/L High 5-50 [facility] Comment on above: Performed By: #### C BC, CMP, MG1, PHOS, PTT, PT ####[place] [phone] Anion gap [Moles/Vol] 12 mmol/L Normal 9-18 [facility] Comment on above: Performed By: #### C BC, CMP, MG1, PHOS, PTT, PT ####[place] [phone] AST [Catalytic activity/Vol] 63 U/L High 7-40 [facility] Comment on above: Performed By: #### C BC, CMP, MG1, PHOS, PTT, PT ####[place] [phone] Bilirubin [Mass/Vol] 0.6 mg/dL Normal 0.2-1.3 [facility] Comment on above: Performed By: #### C BC, CMP, MG1, PHOS, PTT, PT ####[place] [phone] Calcium [Mass/Vol] 8.1 mg/dL Low 8.5-10.5 [facility] Comment on above: Performed By: #### C BC, CMP, MG1, PHOS, PTT, PT ####[place] [phone] Chloride [Moles/Vol] 99 mmol/L Normal 98-110 [facility] Comment on above: Performed By: #### C BC, CMP, MG1, PHOS, PTT, PT ####[place] [phone] CO2 [Moles/Vol] 25 mmol/L Normal 23-32 [facility] Comment on above: Performed By: #### C BC, CMP, MG1, PHOS, PTT, PT ####[place] [phone] Creatinine [Mass/Vol] 0.69 mg/dL Low 0.70-1.40 [facility] Comment on above: Performed By: #### C BC, CMP, MG1, PHOS, PTT, PT ####[place] [phone] eGFR- Amer. >60 Normal >60 [facility] Comment on above: Performed By: #### C BC, CMP, MG1, PHOS, PTT, PT ####[place] [phone] GFR/1.73 sq M predicted among non-blacks MDRD (S/P/Bld) [Vol rate/Area] mL/min/{1.73_m2} Normal >60 [facility] Comment on above: Performed By: #### C BC, CMP, MG1, PHOS, PTT, PT ####[place] [phone] Glucose [Mass/Vol] 112 mg/dL High 65-100 [facility] Comment on above: Performed By: #### C BC, CMP, MG1, PHOS, PTT, PT ####[place] [phone] Potassium [Moles/Vol] 3.4 mmol/L Low 3.5-5.0 [facility] Comment on above: Performed By: #### C BC, CMP, MG1, PHOS, PTT, PT ####[place] [phone] Protein [Mass/Vol] 6.0 g/dL Normal 6.0-8.4 [facility] Comment on above: Performed By: #### C BC, CMP, MG1, PHOS, PTT, PT ####[place] [phone] Sodium [Moles/Vol] 136 mmol/L Normal 135-146 [facility] Comment on above: Performed By: #### C BC, CMP, MG1, PHOS, PTT, PT ####[place] [phone] Urea nitrogen [Mass/Vol] 15 mg/dL Normal 10-25 [facility] Comment on above: Performed By: #### C BC, CMP, MG1, PHOS, PTT, PT ####[place] [phone] Expedited [id number] 10-17-19 20 COVID 19 Result IT SECURITY CONSULTANT Negative Normal Negative for COVID19 (SARS CoV2) by PCR. [facility] Comment on above: Result Comment: This test has been authorized by FDA under an Emergency Use Authorization (EUA). Performed By: #### E XCOVD ####[place] [phone] COVID 19 Source IT SECURITY CONSULTANT Nasopharyngeal Swab Normal [facility] Comment on above: Performed By: #### E XCOVD ####[place] [phone] HISTORY PHYSICALon 0 HISTORY PHYSICAL HNO ID: [id number] Author: Lesly Salvador Service: Vascular Surgery Author [...] exploration and revascularization due to an occluded LABORATORY MACHINIST seen on formal arterial duplex and reduced LLE signals. 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 Angioplasty left LABORATORY MACHINIST - REVSC OPN/PRG FEM/POP W/ANGIOPLASTY UNI 07/02/2014 [...] 0, Taking COMPOUNDED PRESCRIPTION, Aerosol supplies Dx:J44.1 NPI#[id number], Disp: 1 Each, Rfl: 2, Taking ipratropium-albuterol [...] 10/17/19214 -- 10/17/19214 vte current anticoag therapy (tn,ct) 10/17/19214 pneumatic compression stockings ([place]) 10/17/19214 activity - [place]ize [place]) VTE Prophylaxis: VTE prophylaxis appropriate ALLERGIES [...] 10/10/19 for hematoma evacuation, Left EIA to LABORATORY MACHINIST bypass with 7mm ringed PTFE, retrograde open [...] (10/08/19) f/b hematoma evacuation, Left EIA to LABORATORY MACHINIST bypass with 7mm ringed PTFE, retrograde open RADHA angioplasty, and open thrombectomy of L iliac artery with extraction of previously placed stent that was crushed and thrombosed (10/10/19) Plan: - NPO - US Arterial Duplex of L Groin SIGNATURE: Parker Garcia MD PATIENT NAME: Pedro Pablo Sierra DATE: October 17, 2019 TIME: 2:16 AM PAGER/CONTACT #: [phone]#[phone] Agree. Pt seen and examined. Obvious groin wound drainage with concern for deep space infection and graft involvement. Will plan on iv atb's, imaging, and OR for exploration with possible debridement vs muscle flap coverage if needed. He understands and agrees.Lesly Lopez MD Normal [facility] Magnesiumon 10-17-2019 Magnesium [Mass/Vol] 2.0 mg/dL Normal 1.7-2.6 [facility] Comment on above: Performed By: #### C BC, CMP, MG1, PHOS, PTT, PT ####[facility] [place], [place] [phone] NURSING PROGon 10-17-2019 NURSING PROG HNO ID: [id number] Author: Emilie NessRn) ОЛЕГ Mcclelland Service: ? Author Type: Registered Nurse Type: Nursing Progress Note Filed: 10/17/2019 7:03 PM Note Text: Nursing Progress Note Patient Name: Pedro Pablo Sierra Patient Location: [id number]/ __ Daily Note: Alert and oriented x3 [...] midnight. Eating dinner at this time. Normal [facility] NURSING PROG HNO ID: [id number] Author: Emilie NessRn) ОЛЕГ Colunga Service: Nursing Author Type: Registered Nurse Type: Nursing Progress Note Filed: 10/17/2019 6:35 AM Note Text: Nursing Progress Note Patient Name: Pedro Pablo Sierra Patient Location: [id number]/ [id number] __ Transfer Note: Patient transferred into room/unit 534-1 in stable condition. Actions taken: No futher actions taken at this time. Will continue to monitor and check with patient. 330a: INR 5.1; paged vascular sx: 5west; room 534-1 Pedro Pablo Sierra INR 5.1; Emilie [id number] 630a: Received order for 2units FFP note was completed by: Emilie Colunga, ОЛЕГ [facility] PROGRESSon 10-17-2019 PROGRESS HNO ID: [id number] Author: Ayad Tompkins MD Service: Vascular Surgery Author Type: Resident Type: Progress Notes Filed: 10/17/2019 10:51 AM Note Text: As a result of the 09/03/19 order by [facility] of [facility] Director Libby Harris M.D. to cancel non-essential [...] an extremity or organ system if delayed. [facility] PT EDon 10-17-2019 PT ED HNO ID: [id number] Author: Tiny Hutchison) ОЛЕГ Fraser Service: Nursing Author Type: Registered Nurse Type: Patient Education Filed: 10/17/2019 3:10 PM Note Text: PATIENT EDUCATION TOPIC: PROCEDURE / SURGERY: Pre-op Teaching: Logistics PATIENT NAME: Pedro Pablo Sierra PATIENT LOCATION: [place] [address]/[address] 53* READINESS TO LEARN COGNITIVE ABILITY: [...] None Electronically Signed By: Tiny Fraser RN [facility] Phosphoruson 10-17-2019 Phosphate [Mass/Vol] 2.5 mg/dL Normal 2.5-4.5 [facility] Comment on above: Performed By: #### C BC, CMP, MG1, PHOS, PTT, PT ####[address] [phone] Potassiumon 10-17-2019 Potassium [Moles/Vol] 3.5 mmol/L Normal 3.5-5.0 [facility] Comment on above: Performed By: #### K 1 ####[address] [phone] Protimeon 10-17-2019 PT Coag (PPP) [Time] 1.9 s High 0.9-1.3 [facility] Comment on above: Result Comment: Teri min [...] Chest 2012, 141:7S-47S Gio KENNY et al. [facility] 2017, 70: 252-289 Performed By: #### P T ####[address] [phone] PT Coag (PPP) [Time] 20.3 s High 9.7-13.0 [facility] Comment on above: Performed By: #### P T ####[address] [phone] PT Coag (PPP) [Time] 49.5 s High 9.7-13.0 [facility] Comment on above: Performed By: #### P T, DAVID, CBCDIF ####[address] [phone] PT Coag (PPP) [Time] 4.8 s High 0.9-1.3 [facility] Comment on above: Result Comment: Teri min [...] Chest 2012, 141:7S-47S Gio RA, et al. [facility] 2017, 70: 252-289 Performed By: #### P TDAVID, CBCDIF ####[place] [address] [place], [place] [phone] PT Coag (PPP) [Time] 5.1 s High 0.9-1.3 [facility] Comment on above: Result Comment: Teri min [...] Chest 2012, 141:7S-47S Gio RA, et al. [facility] 2017, 70: 252-289 Called to and read back by: Germaine Colunga RN [facility] 10/17/2019 Josh Pierre Performed By: #### C BC, CMP, MG1, PHOS, PTT, PT ####[place] [phone] PT Coag (PPP) [Time] 52.8 s High 9.7-13.0 [facility] Comment on above: Performed By: #### C BC, CMP, MG1, PHOS, PTT, PT ####[place] [phone] Type and Screenon 10-17-2019 ABO/RH(D) Positive Normal [facility] Comment on above: Performed By: #### T SCR ####[place] [phone] Urinalysis with Microscopico n 10-17-2019 Bilirubin, Urine Negative Normal Negative [facility] Comment on above: Performed By: #### U AWMIC ####[place] [phone] Clarity (U) Clear Normal Clear [facility] Comment on above: Performed By: #### U AWMIC ####[place] [phone] Color (U) Yellow Normal Yellow [facility] Comment on above: Performed By: #### U AWMIC ####[place] [phone] Comments SEE COMMENT Normal [facility] Comment on above: Result Comment: Micr oscopic Examination Performed Performed By: #### U AWMIC ####[place] [phone] Epithelial cells LM.HPF (Urine sed) [#/Area] SEE COMMENT Critically abnormal Negative [facility] Comment on above: Result Comment: Rare Squamous Epithelial Cells Performed By: #### U AWMIC ####[place] [phone] Glucose Ql (U) Negative Normal [facility] Comment on above: Performed By: #### U AWMIC ####[place] [phone] Hemoglobin/Blood,Ur Negative Normal Negative [facility] Comment on above: Performed By: #### U AWMIC ####[address]10 Ketones Ql (U) Negative Normal Negative [facility] Comment on above: Performed By: #### U AWMIC ####[address]10 Leukest Negative Normal [facility] Comment on above: Performed By: #### U AWMIC ####[place] [phone] Mucus Ql (Urine sed) Present [facility] Comment on above: Performed By: #### U AWMIC ####[place] [phone] Nitrite Ql (U) Negative Normal [facility] Comment on above: Performed By: #### U AWMIC ####[place] [phone] pH (Bld) 5.0 Normal 5.0-8.0 [facility] Comment on above: Performed By: #### U AWMIC ####[place] [phone] Protein (U) [Mass/Vol] Negative Normal Negative [facility] Comment on above: Performed By: #### U AWMIC ####[address] [phone] RBC (U) [#/Vol] 0-5 Critically abnormal Negative [facility] Comment on above: Performed By: #### U AWMIC ####[address] [phone] Specific [place], Ur 1.028 Normal 1.005-1.030 [facility] Comment on above: Performed By: #### U AWMIC ####[place] [phone] Urobilinogen Qn (U) Negative Normal Negative [facility] Comment on above: Performed By: #### U AWMIC ####[place] [phone] WBC (Bld) [#/Vol] Rare Critically abnormal Negative [facility] Comment on above: Performed By: #### U AWMIC ####[address] [phone] HOSPon 10-16-2019 HOSP Patient:Pedro Pablo Sierra MRN: [...] disease) [I25.10] COPD (chronic obstructive pulmonary disease) ([facility]) [J44.9] Tobacco use disorder [F17.200] Anxiety and [...] stenting 10/08/2019 [I73.9] PVD (peripheral vascular disease) ([facility]) [I73.9] Lupus anticoagulant disorder ([facility]) [D68.62] Smoker [F17.200] Lipoma of abdominal wall [...] Patient Name: Pedro Pablo Sierra Patient Location: [id number]/[address] [facility] __ Transfer Note: Patient transferred into room/unit [facility] in stable condition. Actions taken: No futher actions taken at this time. Will continue to monitor and check with patient. 330a: INR 5.1; paged vascular sx: 5west; [facility] Pedro Pablo Sierra INR 5.1; Emilie [id number] 630a: Received order for 2units FFP note was completed by: Emilie Colunga RN Previous Version Parker Garcia MD, MD 10/17/2019 2:58 AM Cosign [facility] [...] exploration and revascularization due to an occluded LABORATORY MACHINIST seen on formal arterial duplex and reduced LLE signals. In the OR, he underwent hematoma evacuation, Left EIA to LABORATORY MACHINIST bypass with 7mm ringed PTFE, retrograde open [...] x 2 - COLONOSCOP W/ OR W/O [facility] SPEC 05/05/14 Colonoscopy - COLONOSCOPY [...] 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 Angioplasty left LABORATORY MACHINIST - REVSC OPN/PRG FEM/POP W/ANGIOPLASTY UNI 07/02/2014 [...] tablet, Rfl: , 10/07/2019 at Unknown time hydrOXYzine HCl (ATARAX) [...] 0, Taking COMPOUNDED PRESCRIPTION, Aerosol supplies Dx:J44.1 NPI#[id number], Disp: 1 Each, Rfl: 2, Taking ipratropium-albuterol [...] 10/17/19214 -- 10/17/19214 vte current anticoag therapy (tn,ct) 10/17/19214 pneumatic compression stockings (tn,ct) 10/17/19214 activity - mobilize patient (tn,ct) VTE Prophylaxis: VTE prophylaxis appropriate ALLERGIES No [...] 10/10/19 for hematoma evacuation, Left EIA to LABORATORY MACHINIST bypass with 7mm ringed PTFE, retrograde open [...] (10/08/19) f/b hematoma evacuation, Left EIA to LABORATORY MACHINIST bypass with 7mm ringed PTFE, retrograde open RADHA angioplasty, and open thrombectomy of L iliac artery with extraction of previously placed stent that was crushed and thrombosed (10/10/19) Plan: - NPO - US Arterial Duplex of L Groin SIGNATURE: Parker Garcia MD PATIENT NAME: Pedro Pablo Sierra DATE: October 17, 2019 TIME: 2:16 AM PAGER/CONTACT #: [phone] Previous Version Ayad Tompkins MD, 10/17/2019 10:51 AM Signed As a result of the 09/03/19 order by [facility] of Health Director Libby Harris M.D. to [...] of visit (minutes): 10 Baptist / Spirituality: Jewish Reason: Referral; pre-surgery ASSESSMENT Emotional Disposition: Angry, Helpless and Lonely INTERVENTIONS Empowerment: Normalized experience of patient/family Exploration: Explored emotional needs and resources and Explored spiritual needs and resources OUTCOMES Patient debriefed/defused their experience PLAN Will follow up as requested SIGNATURE: Chaplain Riley PATIENT NAME: Pedro Pablo Sierra DATE: October 17, 2019 TIME: 12:23 PM PAGER/CONTACT #: [phone] Mary Carmen Meredith RN, RN 10/17/2019 2:57 PM Addendum CARE MANAGEMENT: ASSESSMENT AND DISCHARGE PLAN SERVICE DATE: October 17, 2019 SERVICE TIME: 12:52 PM PRIMARY CARE PHYSICIAN: DAIJA MORTON MD ADMISSION STATUS: Observation Needs Prior to Discharge: To Be Determined MEDICAL: [facility] 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 Health Issues Impacting Discharge Plan: Newly diagnosed Newly Diagnosed: Left groin wound drainage Last Discharge Date: 10/14/19 Is this Within the Past 30 days? Last discharge within 30 days: Yes Is this a planned readmission?: No Unplanned Reason: Other: See Comment(non healing wound) Followed Up with Appointment Prior to Admission: Appointment completed Advance Directive: Current Advance Directive: Health Care Power of Yacht Rigger In Chart: Yes Up To Date and [...] Home Care?: Home Health Care Agency;Meals on Wheels([facility] [phone] SN/OT/PT) Equipment Prior to Admission: Walker SOCIAL: Living Arrangements: Home Lives With: Alone Financial Resources: RetiredPrimary Contact: Extended Emergency Contact Information Primary Emergency Contact: Michelle Richmond Mobile Relation: Daughter Secondary Emergency Contact: Joseph Burrell Mobile Relation: Relative Supportive Patient Contact:: Yes Contact Resources: Other;Significant Other Other Contact Name/Phone: Liseth reaves/ Ann Hitchcock ([facility] on [place]) [phone] Social Needs Food insecurity Worry: Sometimes true [...] Completely I feel financially burdened by my lvj-te-jxswdj expenses for my prescription medication:: 0 - [...] depends on his daughter and ex (Joseph [phone]) for transportation. He receives waiver services w/ [facility] for SN/OT. He receives Meals on Wheels 9 meals/wk plus some groceries. Patient to have exploration of Inguinal site today 10/16. Additional care needs TBD. TCC remains available for plan of care and transitional care needs as they arise. 1445: Liseth w/ [facility] ([facility] on aging) [phone] call for to update on svcs received. [facility] patient receives waiver services through [facility] for HHC (SN/PT/OT), meals, and emergency health line. Would like to be updated on discharge plans once known. SIGNATURE: Mary Carmen Meredith RN PATIENT NAME: Pedro Pablo Sierra DATE: October 17, 2019 TIME: 12:52 PM PAGER/CONTACT #: [phone] Previous Version Emilie Mcclelland RN, RN 10/17/2019 7:03 PM Addendum Nursing Progress Note Patient Name: Pedro Pablo Sierra Patient Location: [id number]-0 534-01 __ Daily Note: Alert and oriented [...] PATIENT NAME: Pedro Pablo Sierra PATIENT LOCATION: [id number]-6532/[address] 53* READINESS TO LEARN COGNITIVE ABILITY: [...] REFERRAL (RECOMMENDATION): None Electronically Signed By: ОЛЕГ Amlanza RN, RN 10/18/2019 4:31 AM Signed Nursing Progress Note Patient Name: Pedro Pablo Sierra Patient Location: [id number]-2187/[address] 534-01 __ Daily Note: Patient has [...] have any questions, please contact Lit at [phone]. Age: [age] year old Allergies: ALLERGIES No [...] completed by: Emilie Mcclelland, ОЛЕГ Progress Notes ([facility]): Emilie Haque RN 10/16/2019 2:25 PM [...] with any changes. Emilie Haque RN Normal [facility] Basic Metabolic Panlon 10-13 Anion gap [Moles/Vol] 12 mmol/L Normal 9-18 [facility] Comment on above: Performed By: #### C KATHY JUAREZ, PT ####[place] [phone] Calcium [Mass/Vol] 8.3 mg/dL Low 8.5-10.5 [facility] Comment on above: Performed By: #### C KATHY JUAREZ, PT ####[place] [phone] Chloride [Moles/Vol] 100 mmol/L Normal 98-110 [facility] Comment on above: Performed By: #### KATHY HARRISON, PT ####[place] [phone] CO2 [Moles/Vol] 25 mmol/L Normal 23-32 [facility] Comment on above: Performed By: #### KATHY HARRISON, PT ####[place] [phone] Creatinine [Mass/Vol] 0.69 mg/dL Low 0.70-1.40 [facility] Comment on above: Performed By: #### KATHY HARRISON, PT ####[place] [phone] eGFR- Amer. >60 Normal >60 [facility] Comment on above: Performed By: #### KATHY HARRISON, PT ####[place] [phone] GFR/1.73 sq M predicted among non-blacks MDRD (S/P/Bld) [Vol rate/Area] mL/min/{1.73_m2} Normal >60 [facility] Comment on above: Performed By: #### C BC, BMP, PT ####[facility] [place], [place] [phone] Glucose [Mass/Vol] 100 mg/dL Normal 65-100 [facility] Comment on above: Performed By: #### C LARRY, BMP, PT ####[facility] [place], [place] [phone] Potassium [Moles/Vol] 3.9 mmol/L Normal 3.5-5.0 [facility] Comment on above: Performed By: #### C LARRY, BMP, PT ####[address] [phone] Sodium [Moles/Vol] 137 mmol/L Normal 135-146 [facility] Comment on above: Performed By: #### C LARRY, BMP, PT ####[place] [phone] [place], [place] [phone] Urea nitrogen [Mass/Vol] 8 mg/dL Low 10-25 [facility] Comment on above: Performed By: #### C LARRY, BMP, PT ####[facility] [place], [place] [phone] CASE MANAGEMon 10-14-2019 CASE MANAGEM HNO ID: [id number] Author: Guadalupe Yee (Sw) Service: ? Author Type: Scraper Hand Type: Care Mgt Progress Note Filed: 10/14/2019 10:14 AM Note Text: CARE MANAGEMENT DISCHARGE NOTE SERVICE DATE: 10/14/2019 SERVICE TIME: 9:59 AM LOS: 6 days Admission Date: 10/08/2019 DISCHARGE ARRANGEMENT (list agency and phone number) Discharge Arrangement: Home Intermediate Care: Nursing;OT Provider Name: [facility] CAREGIVER ASSESSMENT: Caregiver is ready, willing and able to meet the patient's needs as recommended by the inter-professional team:: Yes Does the patient have an acute stroke diagnosis, or has the patient had a stroke during this admission?: No Patient's transition needs and plan for meeting these needs: [facility] HANDOFF COMMUNICATION: Handoff to: Primary Care Physician Retail Associate Manager Bilingual Name/Phone: Daija Morton/[phone] Primary Care Physician Name/Phone: Daija Morton TRANSPORTATION ARRANGEMENTS: Transportation Arrangements: Car ADDITIONAL CONTACT RESOURCES: Discharge Information Row Name Admission (Current) from 10/08/[address] Health Care Agency [facility] Start of Care 10/16/19 Patient will be [...] 14, 2019 TIME: 9:58 AM PAGER/CONTACT #: [phone] Normal [facility] CBCon 10-14-2019 Erythrocyte distribution width (RBC) [Ratio] 15.9 % High 11.5-15.0 [facility] Comment on above: Performed By: #### C LARRY, BMP, PT ####[facility] [place] [phone] Hematocrit (Bld) [Volume fraction] 28.2 % Low 39.0-51.0 [facility] Comment on above: Performed By: #### C LARRY BMP, PT ####[facility] [place] [phone] Hemoglobin (Bld) [Mass/Vol] 9.0 g/dL Low 13.0-17.0 [facility] Comment on above: Performed By: #### C LARRY, BMP, PT ####[place] [phone] [place] [phone] MCH (RBC) [Entitic mass] 29.8 pG Normal 26.0-34.0 [facility] Comment on above: Performed By: #### C BC, BMP, PT ####[facility] [place] [phone] MCHC (RBC) [Mass/Vol] 31.9 g/dL Normal 30.5-36.0 [facility] Comment on above: Performed By: #### C KATHY JUAREZ, PT ####[address] [phone] MCV (RBC) [Entitic vol] 93.4 fL Normal 80.0-100.0 [facility] Comment on above: Performed By: #### C KATHY JUAREZ, PT ####[place] [phone] Platelet mean volume (Bld) [Entitic vol] 9.8 fL Normal 9.0-12.7 [facility] Comment on above: Performed By: #### C KATHY JUAREZ, PT ####[place] [phone] Platelets (Bld) [#/Vol] 225 10*3/uL Normal 150-400 [facility] Comment on above: Performed By: #### C KATHY JUAREZ, PT ####[place] [phone] RBC (Bld) [#/Vol] 3.02 10*6/uL Low 4.20-6.00 [facility] Comment on above: Performed By: #### C KATHY JUAREZ, PT ####[address] [phone] WBC (Bld) [#/Vol] 4.88 10*3/uL Normal 3.70-11.00 [facility] Comment on above: Performed By: #### C KATHY JUAREZ, PT ####[address] [phone] NURSING PROGon 10-14-2019 NURSING PROG HNO ID: [id number] Author: Fran (Rn) ОЛЕГ Solorio Service: ? Author Type: Registered Nurse Type: Nursing Progress Note Filed: 10/14/2019 6:05 PM Note Text: Nursing Progress Note Patient Name: Pedro Pablo Sierra Patient Location: [address] __ Daily Note: Patient was resting comfortably [...] note was completed by: Fran Solorio RN [facility] NUTRITIONon 10-14-2019 NUTRITION HNO ID: [id number] Author: Muna Rivas Service: Nutrition Therapy Author [...] and weekends please page the Group Pager [phone] [facility] PLAN OF CAREon 10-14-2019 PLAN OF CARE HNO ID: [id number] Author: Sherly Quigley (Diesel Engine Operator) Service: Pharmacy Author Type: Radiology Technician Type: Plan of Care Filed: 10/15/2019 11:12 AM Note Text: PCAS BEDSIDE DELIVERY SURVEY 1. Patient to use [facility] Bedside Delivery - NO prefer own pharmacy Insurance Information as follows: 2. Insurance card on file - NO 3. Credit card for payment - NO [facility] PLAN OF CARE HNO ID: [id number] Author: Roman Girard Service: Vascular Surgery Author [...] Morton stated that she would have her Insole And Outsole Preparer call him today to make a post dc followup virtual appt on 10/15 to go over INR results. - [facility] enterprise services manager coordinated with Home health and scheduled INR check on 10/15 -Pt's ex is picking pt up for discharge to home at 1200 per pt Roman Girard APRN/ACE Vascular Surgery Pager: [phone] [facility] PROGRESSon 10-14-2019 PROGRESS HNO ID: [id number] Author: Ayad Tompkins MD Service: Vascular Surgery [...] -- 10/11/19 0945 activity - [place]ize [place]) 10/08/19 1645 pneumatic compression stockings [place]) VTE Prophylaxis: on AC ALLERGIES No [...] w/ rest pain and is s/p L LABORATORY MACHINIST EA w/ bovine patch, L RADHA and EIA thrombectomy, L CI and EI stenting 10/07 c/b thrombosis s/p EIA to LABORATORY MACHINIST bypass graft w. Ringed PTFE 10/09. Plan: INR in range, will resume home coumadin regimen; d/c lovenox Reg diet, HLIV PO pain meds Cont. plavix Dressing changes PRN to groin Dispo: D/c home with [facility] today Ayad Tompkins MD General Surgery, PGY-3 For questions Monday through Monday 6am to 6pm please page Red Team [phone] For questions during nights (6pm - 6am) and weekends, please contact the General Surgery Compressed Gas Plant Worker pager, [phone] Normal [facility] Protimeon 10-14-2019 PT Coag (PPP) [Time] 27.5 s High 9.7-13.0 [facility] Comment on above: Performed By: #### C BC, BMP, PT ####[facility] [place], [place] [phone] PT Coag (PPP) [Time] 2.6 s High 0.9-1.3 [facility] Comment on above: Result Comment: Teri min [...] Chest 2012, 141:7S-47S Gio RA, et al. [facility] 2017, 70: 252-289 Performed By: #### C BC, BMP, PT ####[place] [id number] [place], [place] [phone] THERAPY NTon 10-14-2019 THERAPY NT HNO ID: [id number] Author: Shakir Alicea (Pt) Mode Service: Physical Therapy Author Type: Physical Therapist Type: Therapy (PT/OT/Speech/Resp) Filed: 10/14/2019 10:40 AM Note Text: Physical Therapy Treatment SERVICE DATE: 10/14/2019 SERVICE TIME: 1003 to 1026 ROOM: [place] [address] Recommended Discharge Disposition: Home PT Anticipated Discharge [...] ness on feet Interventions Provided: Gait Training (36441);Therapeutic Activity (90682) Therapeutic Activity (73204) Treatment Minutes: 10 1 unit Skilled Intervention(s): [...] in position prior to mobility Gait Training (61845) Treatment Minutes: 13 1 unit Skilled Intervention(s): [...] Consult : PVD s/p L LE redo LABORATORY MACHINIST endarterectomy, L profundoplasty, iliac stenting on 10/08/19 Relevant Past Medical History: S/p L femoral endarterectomy/aoroili ac stenting Patient Report: Pt agreeable to participate in therapy session. Pt having coughing spells intermittently during functional mobility, stating that he gets light headed when this occurs (vascular team was notified). Home Environment Patient Lives With: Self/Alone Assistance Available: multimedia project manager Entry To Home: Stairs;Other: See Comment(stair lift) [...] able to maintain balance while [facility] Walk 25 feet or more Please see discipline specific clinical documentation flowsheet for complete details for this therapy evaluation/treatment. SIGNATURE: Shakir Coello PT PATIENT NAME: Pedro Pablo Sierra DATE: October 14, 2019 TIME: 10:37 AM Normal [facility] THERAPY NT HNO ID: [id number] Author: Caitlin (Ot) William Service: Occupational Therapy Author Type: Occupational Therapist Type: Therapy (PT/OT/Speech/Resp) Filed: 10/14/2019 10:18 AM Note Text: OCCUPATIONAL THERAPY MISSED VISIT SERVICE DATE: 10/14/2019 SERVICE TIME: 920 to 920 ROOM: [id number] Attempted Treatment. Patient not seen due to Declined. Pt declines OT tx stating, Not until after dinner. OT explains that it is 9 in the morning with pt verbalizing understanding and continuing to decline therapy at this time. Continue OT per POC as able. SIGNATURE: Caitlin Thomas OTR/L PATIENT NAME: Pedro Pablo Sierra DATE: October 14, 2019 TIME: 10:17 AM Normal [facility] Basic Metabolic Panlon 10-12 Anion gap [Moles/Vol] 10 mmol/L Normal 9-18 [facility] Comment on above: Performed By: #### C BC BMP, PT ####[place] [phone] Calcium [Mass/Vol] 8.1 mg/dL Low 8.5-10.5 [facility] Comment on above: Performed By: #### C BC BMP, PT ####[place] [phone] Chloride [Moles/Vol] 102 mmol/L Normal 98-110 [facility] Comment on above: Performed By: #### C BC BMP, PT ####[place] [phone] CO2 [Moles/Vol] 26 mmol/L Normal 23-32 [facility] Comment on above: Performed By: #### C BC BMP, PT ####[place] [phone] Creatinine [Mass/Vol] 0.68 mg/dL Low 0.70-1.40 [facility] Comment on above: Performed By: #### C BC BMP, PT ####[place] [phone] eGFR- Amer. >60 Normal >60 [facility] Comment on above: Performed By: #### C BC, BMP, PT ####[place] [phone] GFR/1.73 sq M predicted among non-blacks MDRD (S/P/Bld) [Vol rate/Area] mL/min/{1.73_m2} Normal >60 [facility] Comment on above: Performed By: #### C KATHY JUAREZ, PT ####[address] [phone] Glucose [Mass/Vol] 103 mg/dL High 65-100 [facility] Comment on above: Performed By: #### C KATHY JUAREZ, PT ####[place] [phone] Potassium [Moles/Vol] 3.5 mmol/L Normal 3.5-5.0 [facility] Comment on above: Performed By: #### C KATHY JUAREZ, PT ####[place] [phone] Sodium [Moles/Vol] 138 mmol/L Normal 135-146 [facility] Comment on above: Performed By: #### C KATHY JUAREZ, PT ####[place] [phone] Urea nitrogen [Mass/Vol] 8 mg/dL Low 10-25 [facility] Comment on above: Performed By: #### C KATHY JUAREZ, PT ####[address] [phone] CASE MANAGEMon 10-13-2019 CASE MANAGEM HNO ID: [id number] Author: Carly Hutchison) ОЛЕГ Man Service: Case [...] [facility] services. AVS faxed to Carmen Songiver RAMANA) SIGNATURE: Carly Man RN,BSN PATIENT NAME: Pedro Pablo Sierra DATE: October 13, 2019 TIME: 1:54 PM PAGER/CONTACT #: [phone] Normal [facility] CBCon 10-13-2019 Erythrocyte distribution width (RBC) [Ratio] 15.9 % High 11.5-15.0 [facility] Comment on above: Performed By: #### C LARRY BMP, PT ####[place] [phone] Hematocrit (Bld) [Volume fraction] 26.2 % Low 39.0-51.0 [facility] Comment on above: Performed By: #### C LARRY BMP, PT ####[place] [phone] Hemoglobin (Bld) [Mass/Vol] 8.4 g/dL Low 13.0-17.0 [facility] Comment on above: Performed By: #### C LARRY BMP, PT ####[place] [phone] MCH (RBC) [Entitic mass] 29.6 pG Normal 26.0-34.0 [facility] Comment on above: Performed By: #### C LARRY BMP, PT ####[place] [phone] MCHC (RBC) [Mass/Vol] 32.1 g/dL Normal 30.5-36.0 [facility] Comment on above: Performed By: #### C LARRY BMP, PT ####[place] [phone] MCV (RBC) [Entitic vol] 92.3 fL Normal 80.0-100.0 [facility] Comment on above: Performed By: #### C BC, BMP, PT ####[place] [phone] Platelet mean volume (Bld) [Entitic vol] 10.0 fL Normal 9.0-12.7 [facility] Comment on above: Performed By: #### C BC, BMP, PT ####[place] [phone] Platelets (Bld) [#/Vol] 187 10*3/uL Normal 150-400 [facility] Comment on above: Performed By: #### C KATHY JUAREZ, PT ####[place] [phone] [place], [place] [phone] RBC (Bld) [#/Vol] 2.84 10*6/uL Low 4.20-6.00 [facility] Comment on above: Performed By: #### C KATHY JUAREZ, PT ####[place] [id number] [place], [place] [phone] WBC (Bld) [#/Vol] 4.79 10*3/uL Normal 3.70-11.00 [facility] Comment on above: Performed By: #### C KATHY JUAREZ, PT ####[place] [phone] [place], [place] [phone] NURSING PROGon 10-13-2019 NURSING PROG HNO ID: [id number] Author: Stefania France (Rn) ОЛЕГ García Service: ? Author Type: Registered Nurse Type: Nursing Progress Note Filed: 10/13/2019 10:12 AM Note Text: Nursing Progress Note Patient Name: Pedro Pablo Sierra Patient Location: [place] [address]/[place] [address] __ Daily Note:Patient expressed a desire to [...] note was completed by: Stefania García RN [facility] NURSING PROG HNO ID: [id number] Author: Emily (Rn) ОЛЕГ Linda Service: ? Author Type: Registered Nurse Type: Nursing Progress Note Filed: 10/13/2019 12:12 AM Note Text: Nursing Progress Note Patient Name: Pedro Pablo Sierra Patient Location: [place] [address]/[address] __ Daily Note: 2150-- pt resting [...] reach. 0000-- page to on-call surgery team 1234-- Pedro Pablo Sierra [id number]-- patients L groin cath site has frequent medium amount of serosanguinous drainage, dressing changed. small hematoma still present. just wanted to make aware. thanks, Emily [phone] 0007-- call back from Noman Fish, general surgery resident, says continue monitoring incision for larger amount of bloody drainage and dehiscence. This note was completed by: Emily Linda RN [facility] PROGRESSon 10-13-2019 PROGRESS HNO ID: [id number] Author: Noman Fish MD Service: General Surgery Author Type: Resident Type: Progress Notes Filed: 10/13/2019 7:13 AM Note Text: [facility] VASC[facility]GERY POSTOP PROGRESS NOTE Service Date: 10/13/2019Admit Date: 10/08/2019Service Time: 7:08 AM LOS: 5 day(s) Primary Service: Vascular Surgery Vascular Physician: Ryan May MD Interval Events/Issues: Drainage from incision site. Patient angry about discharge, wants fyjic-akg-utmqm care at home. Otherwise no acute events. [...] -- 10/11/19 0945 activity - mobilize patient (tn,ct) 10/08/19 1645 pneumatic compression stockings ([place]) VTE Prophylaxis: on AC ALLERGIES No Known Allergies Objective PHYSICAL EXAM: Patient Vitals for the past 24 hrs: BP Temp Temp src Pulse Resp SpO2 10/12/19 0714 ? ? ? 89 16 ? 04/25/20 0703 (!) 121/46 36.7 ?C (98.1 ?F) [...] 173 140* Recent Labs 10/13/19 0511 10/12/19 0910/11/19 0330 10/10/19 1459 NA 138 135 136 [...] w/ rest pain and is s/p L LABORATORY MACHINIST EA w/ bovine patch, L RADHA and EIA thrombectomy, L CI and EI stenting 10/07 c/b thrombosis s/p : EIA to LABORATORY MACHINIST bypass graft w. Ringed PTFE 10/09. Plan: Continue lovenox to coumadin bridge Reg diet, HLIV PO pain meds S/p brittany-op abx No clark Cont. plavix Dressing changes PRN to groin Dispo: D/c home with [facility] today Noman Fish MD 7:09 AM 10/13/2019 See below: For questions Monday through Monday 6am to 6pm please page Red Team [phone] For questions during nights (6pm - 6am) and weekends, please contact the General Surgery Compressed Gas Plant Worker pager, [phone] Normal [facility] Protimeon 10-13-2019 PT Coag (PPP) [Time] 30.6 s High 9.7-13.0 [facility] Comment on above: Performed By: #### C BC, BMP, PT ####[facility] [place], [place] [phone] PT Coag (PPP) [Time] 2.9 s High 0.9-1.3 [facility] Comment on above: Result Comment: Teri min [...] Chest 2012, 141:7S-47S Gio RA, et al. [facility] 2017, 70: 252-289 Performed By: #### C BC, BMP, PT ####[facility] [place], [place] [phone] THERAPY NTon 10-13-2019 THERAPY NT HNO ID: [id number] Author: Shakir Alicea (Pt) Mode Service: Physical Therapy Author Type: Physical Therapist Type: Therapy (PT/OT/Speech/Resp) Filed: 10/13/2019 1:35 PM Note Text: Physical Therapy Treatment SERVICE DATE: 10/13/2019 SERVICE TIME: 1235 to 1300 ROOM: [place] [address] Recommended Discharge Disposition: Home PT Anticipated Discharge [...] ness on feet Interventions Provided: Gait Training (09686) Gait Training (47703) Treatment Minutes: 25 2 units Skilled Intervention(s): [...] Consult : PVD s/p L LE redo LABORATORY MACHINIST endarterectomy, L profundoplasty, iliac stenting on 10/08/19 Relevant Past Medical History: S/p L femoral endarterectomy/aoroili ac stenting Patient Report: Pt agreeable to participate in therapy session Home Environment Patient Lives With: Self/Alone Assistance Available: multimedia project manager Entry To Home: Stairs;Other: See Comment(stair lift) [...] October 13, 2019 TIME: 1:34 PM Normal [facility] Basic Metabolic Panlon 10-11 Anion gap [Moles/Vol] 11 mmol/L Normal 9-18 [facility] Comment on above: Performed By: #### C LARRY, PT, BMP ####[facility] [place], [place] [phone] Calcium [Mass/Vol] 8.1 mg/dL Low 8.5-10.5 [facility] Comment on above: Performed By: #### C LARRY, PT, BMP ####[facility] [place], [place] [phone] Chloride [Moles/Vol] 98 mmol/L Normal 98-110 [facility] Comment on above: Performed By: #### C BC, PT, BMP ####[place] [id number] [place] [phone] CO2 [Moles/Vol] 26 mmol/L Normal 23-32 [facility] Comment on above: Performed By: #### C BC, PT, BMP ####[place] [phone] Creatinine [Mass/Vol] 0.64 mg/dL Low 0.70-1.40 [facility] Comment on above: Performed By: #### C BC, PT, BMP ####[place] [phone] eGFR- Amer. >60 Normal >60 [facility] Comment on above: Performed By: #### C BC, PT, BMP ####[place] [phone] GFR/1.73 sq M predicted among non-blacks MDRD (S/P/Bld) [Vol rate/Area] mL/min/{1.73_m2} Normal >60 [facility] Comment on above: Performed By: #### C BC, PT, BMP ####[place] [phone] Glucose [Mass/Vol] 151 mg/dL High 65-100 [facility] Comment on above: Performed By: #### C BC, PT, BMP ####[place] [phone] Potassium [Moles/Vol] 3.6 mmol/L Normal 3.5-5.0 [facility] Comment on above: Performed By: #### C BC, PT, BMP ####[place] [phone] Sodium [Moles/Vol] 135 mmol/L Normal 135-146 [facility] Comment on above: Performed By: #### C BC, PT, BMP ####[place] [phone] Urea nitrogen [Mass/Vol] 8 mg/dL Low 10-25 [facility] Comment on above: Performed By: #### C BC, PT, BMP ####[facility] [place], [place] [phone] CASE MANAGEMon 10-12-2019 CASE MANAGEM HNO ID: [id number] Author: Carly NessRn) ОЛЕГ Man Service: Case Management Author Type: Registered Nurse Type: Care Mgt Progress Note Filed: 10/12/2019 12:39 PM Note Text: CARE MANAGEMENT PROGRESS NOTE SERVICE DATE: 10/12/2019 SERVICE TIME: 1230 LOS: 4 days Needs Prior to Discharge: To Be Determined Clinicals faxed to [facility] SIGNATURE: Carly Man RN,BSN PATIENT NAME: Pedro Pablo Sierra DATE: October 12, 2019 TIME: 12:38 PM PAGER/CONTACT #: [phone] [facility] CASE MANAGEM HNO ID: [id number] Author: Carly Hutchison) ОЛЕГ Man Service: Case [...] 12, 2019 TIME: 10:14 AM PAGER/CONTACT #: [phone] [facility] CBCon 10-12-2019 Erythrocyte distribution width (RBC) [Ratio] 16.0 % High 11.5-15.0 [facility] Comment on above: Performed By: #### C BC, PT, BMP ####[place] [phone] Hematocrit (Bld) [Volume fraction] 29.3 % Low 39.0-51.0 [facility] Comment on above: Performed By: #### C BC, PT, BMP ####[place] [phone] Hemoglobin (Bld) [Mass/Vol] 9.7 g/dL Low 13.0-17.0 [facility] Comment on above: Performed By: #### C BC, PT, BMP ####[place] [phone] MCH (RBC) [Entitic mass] 30.3 pG Normal 26.0-34.0 [facility] Comment on above: Performed By: #### C BC, PT, BMP ####[place] [phone] MCHC (RBC) [Mass/Vol] 33.1 g/dL Normal 30.5-36.0 [facility] Comment on above: Performed By: #### C BC, PT, BMP ####[place] [phone] MCV (RBC) [Entitic vol] 91.6 fL Normal 80.0-100.0 [facility] Comment on above: Performed By: #### C BC, PT, BMP ####[place] [phone] Platelet mean volume (Bld) [Entitic vol] 10.2 fL Normal 9.0-12.7 [facility] Comment on above: Performed By: #### C BC, PT, BMP ####[place] [phone] Platelets (Bld) [#/Vol] 173 10*3/uL Normal 150-400 [facility] Comment on above: Performed By: #### C BC, PT, BMP ####[place] [address] [place], [place] [phone] RBC (Bld) [#/Vol] 3.20 10*6/uL Low 4.20-6.00 [facility] Comment on above: Performed By: #### C BC, PT, BMP ####[facility] [place], [place] [phone] WBC (Bld) [#/Vol] 5.98 10*3/uL Normal 3.70-11.00 [facility] Comment on above: Performed By: #### C BC, PT, BMP ####[place] [id number] [place], [place] [phone] NURSING PROGon 10-12-2019 NURSING PROG HNO ID: [id number] Author: Daphney (Rn) ОЛЕГ Baron Service: Nursing Author Type: Registered Nurse Type: Nursing Progress Note Filed: 10/12/2019 4:25 PM Note Text: Nursing Progress Note Patient Name: Pedro Pablo Sierra Patient Location: [place] [address] __ Daily Note: 0900: Pt up to chair with 2 assist and walker. Pt states left leg is painful, but able to bear weight. Pt does not want to be discharged at this time, PT/OT recommending skilled, pt refusing and wanting home care around the clock. Pt requesting robitussin for cough, given at 0841 per order. 1130: Pt assisted to bathroom with nursing faculty and walker. Pt was able to ambulate from bathroom to bed using walker with standby assist. 1610: Incision to left groin oozing serosang drainage. Gown saturated and needed to be changed. Abd and paper tape applied to cover and collect drainage. Pt c/o pain to left groin, 01/26. Medicated with 10mg po oxycodone. This note was completed by: Daphney Baron RN [facility] PROGRESSon 10-12-2019 PROGRESS HNO ID: [id number] Author: Elly Brown Service: Vascular Surgery Author [...] -- 10/11/19 0945 activity - [place]ize [place]) 10/08/19 1645 pneumatic compression stockings ([place]) VTE Prophylaxis: on AC ALLERGIES No Known Allergies Objective PHYSICAL EXAM: Patient Vitals for the past 24 hrs: BP Temp Temp src Pulse Resp SpO2 10/12/19 0714 ? ? ? 89 16 ? 10/12/19 0703 (!) 121/46 36.7 ?C (98.1 ?F) Temporal 92 16 88 % 10/11/19 2307 148/52 37.2 ?C (99 ?F) Temporal 81 16 94 % 04/24/20 2106 ? ? ? 81 ? ? [...] w/ rest pain and is s/p L LABORATORY MACHINIST EA w/ bovine patch, L RADHA and EIA thrombectomy, L CI and EI stenting 10/07 c/b thrombosis s/p : EIA to LABORATORY MACHINIST bypass graft w. Ringed PTFE 10/09. Plan: [...] aorta to left SFA, [facility]rombectomy Airway Difficulty: NA OR Course: [...] and weekends, please contact the General Surgery [employer]ressed [employer] Worker pager, [phone] [facility] Protimeon 10-12-2019 PT Coag (PPP) [Time] 15.6 s High 9.7-13.0 [facility] Comment on above: Performed By: #### C LARRY PT, KATHY ####[place] [id number] [place], [place] [phone] PT Coag (PPP) [Time] 1.5 s High 0.9-1.3 [facility] Comment on above: Result Comment: Teri min [...] 2017, 70: 252-289 Performed By: #### C ALRRY PTKATHY ####[place] [id number] [place], [place] [phone] ANES POSTPROC EVALon 020 ANES POSTPROC EVAL HNO ID: [id number] Author: Cassie Zavala Service: ? Author Type: [...] October 11, 2019 TIME: 7:41 AM CSN: [id number] Normal [facility] Basic Metabolic Panlon 10-10 Anion gap [Moles/Vol] 9 mmol/L Normal 9-18 [facility] Comment on above: Performed By: #### C BC, BMP, MG1, PHOS ####[phone] Calcium [Mass/Vol] 7.7 mg/dL Low 8.5-10.5 [facility] Comment on above: Performed By: #### C BC, BMP, MG1, PHOS ####[place] [phone] Chloride [Moles/Vol] 101 mmol/L Normal 98-110 [facility] Comment on above: Performed By: #### C BC, BMP, MG1, PHOS ####[place] [phone] CO2 [Moles/Vol] 26 mmol/L Normal 23-32 [facility] Comment on above: Performed By: #### C BC, BMP, MG1, PHOS ####[place] [phone] Creatinine [Mass/Vol] 0.63 mg/dL Low 0.70-1.40 [facility] Comment on above: Performed By: #### C BC, BMP, MG1, PHOS ####[place] [phone] eGFR- Amer. >60 Normal >60 [facility] Comment on above: Performed By: #### C BC, BMP, MG1, PHOS ####[place] [phone] GFR/1.73 sq M predicted among non-blacks MDRD (S/P/Bld) [Vol rate/Area] mL/min/{1.73_m2} Normal >60 [facility] Comment on above: Performed By: #### C BC, BMP, MG1, PHOS ####[place] [phone] Glucose [Mass/Vol] 107 mg/dL High 65-100 [facility] Comment on above: Performed By: #### C BC, BMP, MG1, PHOS ####[place] [phone] Potassium [Moles/Vol] 3.9 mmol/L Normal 3.5-5.0 [facility] Comment on above: Performed By: #### C BC, BMP, MG1, PHOS ####[place] [phone] Sodium [Moles/Vol] 136 mmol/L Normal 135-146 [facility] Comment on above: Performed By: #### C BC, BMP, MG1, PHOS ####[place] [phone] Urea nitrogen [Mass/Vol] 8 mg/dL Low 10-25 [facility] Comment on above: Performed By: #### C BC, BMP, MG1, PHOS ####[place] [phone] CASE MGT INIT ASSESon 2019 CASE MGT INIT ASS HNO ID: [id number] Author: Bri (Rn) ОЛЕГ Swann Service: Case Management Author Type: Registered Nurse Type: Care Mgt Initial Assessment Filed: 10/11/2019 2:43 PM Note Text: CARE MANAGEMENT PROGRESS NOTE SERVICE DATE: 10/11/2019 SERVICE TIME: 2:38 PM LOS: 3 days [place] of Choice Given: Yes Level of Care Discussed: Home Care Financial Disclosure Provided: Yes Financial Disclosure Comments: discussed Needs Prior to Discharge: To Be Determined;Home Care Order CM discussed with pt discharge planning. pt has his home set up for his needs with elevator and refusing rehab at this time due to Covid 19 risks. Pt was active with [facility] for nurse visit and prefers to continue. CM made referral via ascripts, pt will need F2F for PT/OT/SN at d/c. CM flagged weekend CM staff for potential d/c this weekend and will need AVS faxed at d/c to [phone]. CM to follow as needed. SIGNATURE: Bri Swann RN,BSN PATIENT NAME: Pedro Pablo Sierra DATE: October 11, 2019 TIME: 2:38 PM PAGER/CONTACT #: [phone] Normal [facility] CBCon 10-11-2019 Erythrocyte distribution width (RBC) [Ratio] 15.8 % High 11.5-15.0 [facility] Comment on above: Performed By: #### C BC, BMP, MG1, PHOS ####[place] [id number] [place] [phone] Hematocrit (Bld) [Volume fraction] 27.2 % Low 39.0-51.0 [facility] Comment on above: Performed By: #### C BC, BMP, MG1, PHOS ####[place] [id number] [place] [phone] Hemoglobin (Bld) [Mass/Vol] 8.9 g/dL Low 13.0-17.0 [facility] Comment on above: Performed By: #### C BC, BMP, MG1, PHOS ####[place] [phone] MCH (RBC) [Entitic mass] 29.4 pG Normal 26.0-34.0 [facility] Comment on above: Performed By: #### C BC, BMP, MG1, PHOS ####[place] [phone] MCHC (RBC) [Mass/Vol] 32.7 g/dL Normal 30.5-36.0 [facility] Comment on above: Performed By: #### C BC, BMP, MG1, PHOS ####[place] [phone] MCV (RBC) [Entitic vol] 89.8 fL Normal 80.0-100.0 [facility] Comment on above: Performed By: #### C BC, BMP, MG1, PHOS ####[place] [phone] Platelet mean volume (Bld) [Entitic vol] 9.9 fL Normal 9.0-12.7 [facility] Comment on above: Performed By: #### C BC, BMP, MG1, PHOS ####[place] [phone] Platelets (Bld) [#/Vol] 140 10*3/uL Low 150-400 [facility] Comment on above: Performed By: #### C BC, BMP, MG1, PHOS ####[place] [phone] RBC (Bld) [#/Vol] 3.03 10*6/uL Low 4.20-6.00 [facility] Comment on above: Performed By: #### C BC, BMP, MG1, PHOS ####[place] [phone] WBC (Bld) [#/Vol] 5.78 10*3/uL Normal 3.70-11.00 [facility] Comment on above: Performed By: #### C BC, BMP, MG1, PHOS ####[place] [address] [place], [place] [phone] Magnesiumon 10-11-2019 Magnesium [Mass/Vol] 2.0 mg/dL Normal 1.7-2.6 [facility] Comment on above: Performed By: #### C BC, BMP, MG1, PHOS ####[facility] [place], [place] [phone] NURSING PROGon 10-11-2019 NURSING PROG HNO ID: [id number] Author: Briana (Rn) ОЛЕГ Hardy Service: ? Author Type: Registered Nurse Type: Nursing Progress Note Filed: 10/11/2019 2:37 PM Note Text: Nursing Progress Note Patient Name: Pedro Pablo Sierra Patient Location: [id number]/[facility]-0 [facility] __ Daily Note: 0700. Bedside report received from manager shift RN. Patient is resting comfortably in [...] care of patient. 1430. Patient transferred to [facility] via bed on portable O2. All belongings and chart sent with patient. This note was completed by: Briana Hardy RN [facility] PROGRESSon 10-11-2019 PROGRESS HNO ID: [id number] Author: Noman France (Res) MD Abe Service: Vascular Surgery Author Type: Resident Type: [...] 1043 -- 10/08/19 1645 pneumatic compression stockings (tn,ct) VTE Prophylaxis: held for bleeding ALLERGIES No [...] PLT 140* 167 173 Recent Labs 10/11/19 03310/10/199 10/10/19 0559 NA 136 138 136 K [...] aorta to left SFA, 20cm [facility] Thrombectomy Airway [...] TIME: 7:24 AM PAGER/CONTACT #: See Below [phone] For questions Monday through Monday 6am to 6pm please page Red Team [phone] For questions during nights (6pm - 6am) and weekends, please contact the General Surgery Compressed [employer] Worker pager, [phone] [facility] PROGRESS HNO ID: [id number] Author: Rashawn Huntley Service: Critical Care Author Type: Anesthesiologist Type: Progress Notes Filed: 10/11/2019 11:08 AM Note Text: SICU PROGRESS NOTE SERVICE DATE: 10/11/2019 SERVICE TIME: 6:40 AM POD #: 1/ Subjective Interval events (last 24 hours) / [...] CURRENT MEDICATIONS: Medications reviewed. Please refer to [facility] for list of inpatient medications. Current Facility-Administered [...] INTRAVENOUS q 2 H PRN Elly (Res) Chumakova-Waterford 25 mcg at 10/11/19 0648 - hyoscyamine [...] tab(s) (PLAVIX) 75 mg ORAL DAILY Roman (Residence Manager) Heinly 75 mg at 10/10/19 0817 - polyethylene glycol 3350 17 g packet (MIRALAX, GLYCOLAX) 17 g ORAL DAILY PRN Elly (Res) Chumakova-Jennifer - docusate sodium 100 mg cap(s) (COLACE) 100 mg ORAL BID Elly (Res) Chumakova-[place] 100 mg at 10/10/19 2203 - budesonide 0.25 mg/2 mL 0.25 mg (PULMICORT) 0.25 mg INHALATION BID Elly (Res) Chumakova-[place]ford 0.25 mg at 10/10/192046 And - ipratropium-albuterol 3 mL nebulizer solution (DUONEB) 3 mL INHALATION QID Elly (Res) Josesancheza-Waterford 3 mL at 10/10/192046 - NaCl 0.9% iv infusion 100 mL/hr INTRAVENOUS CONTINUOUS Elly (Res) Joseibrahima-Waterford 100 mL/hr at 10/10/191999 100 mL/hr at [...] tab(s) (ZOLOFT) 100 mg ORAL DAILY Misael (Binu Jeter MD 100 mg at 10/10/19 0817 - mirtazapine 15 mg (REMERON) 15 mg ORAL AT BEDTIME Misael (Binu Jeter MD 15 mg at 10/10/192202 - gabapentin 300 mg cap(s) (NEURONTIN) 300 mg ORAL q 12 H Misael (Binu Jeter MD 300 mg at 10/10/192202 - pantoprazole DR 40 mg tab(s) (PROTONIX) 40 mg ORAL DAILY (6 AM) Misael (Azalea) MD Steffany 40 mg at 10/11/19 0635 - dextrose 40 % 15 g 15 g ORAL PRN Misael (Res) MD Steffany Or - glucagon 1 mg injection (GLUCAGEN) 1 mg INTRAMUSCULAR PRN Misael (Azalea) MD Steffany Or - dextrose 50% in water 25 mL syringe 12.5 g INTRAVENOUS PRN Misael (Res) MD Steffany - metoprolol tartrate (short acting) 12.5 mg tab(s) (LOPRESSOR) 12.5 mg ORAL q 12 H Misael (Azalea) MD Steffany 12.5 mg at 10/10/192202 PERTINENT CULTURES: Cultures were reviewed. Pertinent cultures from this hospitalization are listed below. Plese refer to [facility] for a full listing of cultures obtained during this hospitalization. ? N/A DIAGNOSTIC TESTS: The following diagnostic tests/findings were reviewed: ? Most recent labs and imaging results. MOST RECENT CXR FINDINGS: Bibasilar atelectasis. OPERATIVE PROCEDURE(S): Date of surgery: 10/08/19 Procedure: Left common LABORATORY MACHINIST endarterectomy with bovine path Left profundoplasty Left iliac stenting X4 (I-Cast X2, Jessica X2) Multiple angiograms with angioplasty Surgeon: Dr. May Date of surgery: 10/10/19 Procedure: Left EIA to LABORATORY MACHINIST bypass with 7mm ringed PTFE end to [...] in 10/2013 who underwent a Redo left LABORATORY MACHINIST endarterectomy, left profundoplasty, left iliac stenting with Dr. May on 10/08/19. She is admitted to SICU post-operatively for neurovascular checks and close hemodynamic monitoring. Developed L LABORATORY MACHINIST occlusion POD2 and taken back to OR on 10/10/19 for left groin hematoma evacuation, left EIA to LABORATORY MACHINIST PTFE bypass, left liac thrombectomy. Transferred to [...] -Tubes: Clark -Prophylaxis: SCDs -Dispo: Transfer to [facility] Medication and Non-Pharmacologic VTE Prophylaxis/Anticoagul ants Anticoagulant AND Antiplatelet Medications (From admission, onward) Start Dose Route Frequency Ordered Stop 10/10/19 0900 clopidogrel 75 mg tab(s) (PLAVIX) 75 mg ORAL DAILY 10/09/19 1043 -- 10/08/19 1700 activity - [place]ize [place]) 10/08/19 1645 pneumatic compression stockings ([place]) VTE Prophylaxis: Contraindicated elevated risk of bleeding To be seen and discussed on rounds with SICU staff: Dr. Huntley ICU Checklist --------- --- VTE Prophylaxis: SIGNATURE: Mis[place] Jeter MD PATIENT NAME: Pedro Pablo Sierra DATE: October 11, 2019 TIME: 6:40 AM PAGER/CONTACT #: [phone] [facility] STAFF PHYSICIAN NOTE OF PERSONAL INVOLVEMENT [...] HTN GERD ? Procedure/Surgeon 10/08/19 S/P L LABORATORY MACHINIST endarterectomy with bovine path, profundoplasty and iliac [...] DO 11:08 AM October 11, 2019 Normal [facility] Phosphoruson 10-11-2019 Phosphate [Mass/Vol] 1.9 mg/dL Low 2.5-4.5 [facility] Comment on above: Performed By: #### C BC, BMP, MG1, PHOS ####[facility] [place], [place] [phone] Protimeon 10-11-2019 PT Coag (PPP) [Time] 10.9 s Normal 9.7-13.0 [facility] Comment on above: Performed By: #### P T ####[facility] [place], [place] [phone] PT Coag (PPP) [Time] 1.0 s Normal 0.9-1.3 [facility] Comment on above: Result Comment: Teri min [...] Chest 2012, 141:7S-47S Gio RA, et al. [facility] 2017, 70: 252-289 Performed By: #### P T ####[place] [address] [place], [place] [phone] THERAPY NTon 10-11-2019 THERAPY NT HNO ID: [id number] Author: Gini (Pt) Eugenia Melvin Service: Physical Therapy Author Type: Physical Therapist Type: Therapy (PT/OT/Speech/Resp) Filed: 10/11/2019 10:43 AM Note Text: Physical Therapy Treatment SERVICE DATE: 10/11/2019 SERVICE TIME: 0935 to 1020 ROOM: [place] [address] Recommended Discharge Disposition: Home PT Anticipated Discharge [...] Diagnosis: Reduced mobility-other Interventions Provided: Therapeutic Activity (08540);Therapeutic Exercise (51992);Gait Training (04939) Therapeutic Exercise (42207) Treatment Minutes: 15 1 unit Skilled Intervention(s): Instruction in therapeutic exercise supine, very gentle with L LE. Edu on rationale of exercises. Therapeutic Activity (32768) Treatment Minutes: 20 1 unit Skilled Intervention(s): Instructed patient in supine to sit pushing with upper extremities to sit up Instructed patient in supine to and from sit pushing with upper extremities to sit up Instruction in sit to stand technique with proper hand placement and body positioning at edge of bed/chair Gait Training (23038) Treatment Minutes: 10 1 unit Skilled Intervention(s): Instruction in sequencing, gait pattern and Instruction in correction of gait deviations Total Timed Code Treatment Minutes: 45 Total Treatment Time (minutes): 45 SUBJECTIVE: Current Hospital Course: Chart reviewed and no significant medical updates relevant to therapy were noted Reason for Physical Therapy Consult : PVD s/p L LE redo LABORATORY MACHINIST endarterectomy, L profundoplasty, iliac stenting on 10/08/19 Relevant Past Medical History: S/p L femoral endarterectomy/aoroili ac stenting Patient Report: My Left leg is incredibly sore right now, moving is going to have to be slow. (And it is.) Home Environment Patient Lives With: Self/Alone Assistance Available: multimedia project manager Entry To Home: Stairs;Other: See Comment(stair lift) [...] October 11, 2019 TIME: 10:40 AM Normal [facility] THERAPY NT HNO ID: [id number] Author: Caitlin Thomas Service: Occupational Therapy Author Type: Occupational Therapist Type: Therapy (PT/OT/Speech/Resp) Filed: 10/11/2019 6:48 AM Note Text: OCCUPATIONAL THERAPY MISSED VISIT SERVICE DATE: 10/11/2019 SERVICE TIME: 646 to 06 ROOM: [place] [address] Attempted Treatment. Patient not seen due to Incomplete Orders. Pt is currently on bedrest. Please update activity orders when medically appropriate for participation in Occupational Therapy treatment and out of bed mobility. Thank you. SIGNATURE: Caitlin Thomas OTR/L PATIENT NAME: Pedro Pablo Sierra DATE: October 11, 2019 TIME: 6:47 AM [facility] ABG Complete Eval FOR WEST U SE ONLYon 10-10-2019 Base Excess 1 mmol/L Normal [facility] Comment on above: Result Comment: -3 t o 3 Performed By: #### A BGRTC ####[place] [phone] Calcium [Mass/Vol] 1.29 mmol/L Normal 1.15-1.35 [facility] Comment on above: Performed By: #### A BGRTC ####[place] [phone] Carboxyhemoglobin,Art 1.0 % Normal <2.0 [facility] Comment on above: Performed By: #### A BGRTC ####[place] [phone] Chloride, Whole Bld FOR WEST USE ONLY 105 mmol/L Normal 98-107 [facility] Comment on above: Performed By: #### A BGRTC ####[place] [phone] CO2 [Moles/Vol] 27 mmol/L Normal 22.0-28.0 [facility] Comment on above: Performed By: #### A BGRTC ####[place] [phone] Glucose [Mass/Vol] 132 mg/dL High 65-100 [facility] Comment on above: Performed By: #### A BGRTC ####[place] [phone] HCO3 (Bld) [Moles/Vol] 26 mmol/L Normal 22-26 [facility] Comment on above: Performed By: #### A BGRTC ####[place] [phone] Hematocrit (Bld) [Volume fraction] 26.3 % Low 42.0-52.0 [facility] Comment on above: Performed By: #### A BGRTC ####[place] [phone] Hemoglobin (Bld) [Mass/Vol] 8.5 g/dL Low 14-18 [facility] Comment on above: Performed By: #### A BGRTC ####[place] [phone] Lactate [Moles/Vol] 1.5 mmol/L Normal 0.4-2.0 [facility] Comment on above: Performed By: #### A BGRTC ####[place] [phone] Methemoglobin 1.4 % Normal 0.4-1.5 [facility] Comment on above: Performed By: #### A BGRTC ####[place] [phone] O2 Administered 21.0 Normal [facility] Comment on above: Performed By: #### A BGRTC ####[place] [phone] Oxygen (Bld) [Partial pressure] 136 mm Hg High 80-100 [facility] Comment on above: Performed By: #### A BGRTC ####[place] [phone] Oxygen (Bld) [Partial pressure] 99 % High 90-98 [facility] Comment on above: Performed By: #### A BGRTC ####[place] [phone] Oxyhemoglobin, Art. 96 % Normal 94-100 [facility] Comment on above: Performed By: #### A BGRTC ####[place] [phone] pCO2 46 mm Hg Normal 35-48 [facility] Comment on above: Performed By: #### A BGRTC ####[place] [phone] pH (Bld) 7.37 [pH] Normal 7.35-7.45 [facility] Comment on above: Performed By: #### A BGRTC ####[place] [phone] PO2FI FOR WEST USE ONLY 648 mmHG High 400-500 [facility] Comment on above: Performed By: #### A BGRTC ####[place] [phone] Potassium [Moles/Vol] 3.9 mmol/L Normal 3.5-5.0 [facility] Comment on above: Performed By: #### A BGRTC ####[place] [phone] Sodium [Moles/Vol] 137 mmol/L Normal 135-145 [facility] Comment on above: Performed By: #### A BGRTC ####[place] [phone] Base Excess 2 mmol/L Normal [facility] Comment on above: Result Comment: -3 t o 3 Performed By: #### A BGRTC ####[place] [phone] Calcium [Mass/Vol] 1.09 mmol/L Low 1.15-1.35 [facility] Comment on above: Performed By: #### A BGRTC ####[place] [phone] Carboxyhemoglobin,Art 1.3 % Normal <2.0 [facility] Comment on above: Performed By: #### A BGRTC ####[place] [phone] Chloride, Whole Bld FOR WEST USE ONLY 106 mmol/L Normal 98-107 [facility] Comment on above: Performed By: #### A BGRTC ####[place] [phone] CO2 [Moles/Vol] 28 mmol/L Normal 22.0-28.0 [facility] Comment on above: Performed By: #### A BGRTC ####[place] [phone] Glucose [Mass/Vol] 129 mg/dL High 65-100 [facility] Comment on above: Performed By: #### A BGRTC ####[place] [phone] HCO3 (Bld) [Moles/Vol] 27 mmol/L High 22-26 [facility] Comment on above: Performed By: #### A BGRTC ####[place] [phone] Hematocrit (Bld) [Volume fraction] 24.6 % Low 42.0-52.0 [facility] Comment on above: Performed By: #### A BGRTC ####[place] [phone] Hemoglobin (Bld) [Mass/Vol] 7.9 g/dL Low 14-18 [facility] Comment on above: Performed By: #### A BGRTC ####[place] [phone] Lactate [Moles/Vol] 1.1 mmol/L Normal 0.4-2.0 [facility] Comment on above: Performed By: #### A BGRTC ####[place] [phone] Methemoglobin 1.2 % Normal 0.4-1.5 [facility] Comment on above: Performed By: #### A BGRTC ####[place] [phone] O2 Administered 21.0 Normal [facility] Comment on above: Performed By: #### A BGRTC ####[place] [phone] Oxygen (Bld) [Partial pressure] 164 mm Hg High 80-100 [facility] Comment on above: Performed By: #### A BGRTC ####[place] [phone] Oxygen (Bld) [Partial pressure] 99 % High 90-98 [facility] Comment on above: Performed By: #### A BGRTC ####[place] [phone] Oxyhemoglobin, Art. 97 % Normal 94-100 [facility] Comment on above: Performed By: #### A BGRTC ####[place] [phone] pCO2 44 mm Hg Normal 35-48 [facility] Comment on above: Performed By: #### A BGRTC ####[place] [phone] pH (Bld) 7.40 [pH] Normal 7.35-7.45 [facility] Comment on above: Performed By: #### A BGRTC ####[place] [phone] PO2FI FOR WEST USE ONLY 781 mmHG High 400-500 [facility] Comment on above: Performed By: #### A BGRTC ####[place] [phone] Potassium [Moles/Vol] 3.6 mmol/L Normal 3.5-5.0 [facility] Comment on above: Performed By: #### A BGRTC ####[address], [place] [phone] Sodium [Moles/Vol] 137 mmol/L Normal 135-145 [facility] Comment on above: Performed By: #### A BGRT ####[facility] [place], [place] [phone] ALLIED HEALTHon 10-10-2019 ALLIED HEALTH HNO ID: [id number] Author: Judie NessRtWilliam Amaya Service: Radiology Author Type: Radiology Technician Type: Allied Health Filed: 10/10/2019 6:31 AM [...] RT Víctor October 10, 2019 6:31 AM [facility] ANES PRE-OPon 10-10-2019 ANES PRE-OP HNO ID: [id number] Author: Joey Sequeira Service: ? 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 - COMPOUNDED PRESCRIPTION Aerosol supplies Dx:J44.1 NPI#[id number] - ipratropium-albuterol (DUONEB) 0.5 mg-3 mg(2.5 mg [...] October 10, 2019 TIME: 8:21 AM CSN: [id number] Normal [facility] APTTon 10-10-2019 aPTT Coag (Bld) [Time] 25.4 s Normal 23.0-32.4 [facility] Comment on above: Result Comment: Unfr [...] laboratory APTT reagent in use throughout the [facility]. Performed By: #### C BCDIF, PTT, FIBCT, PT ####[facility] [place], [place] [phone] aPTT Coag (Bld) [Time] 126.3 s High 23.0-32.4 [facility] Comment on above: Result Comment: Unfr [...] laboratory APTT reagent in use throughout the [facility]. Called to and read back by: Landry Quintana RN [place] Chaya [facility] 10/10/19 Royce Mccormick Performed By: #### C BCDIF, BMP, MG1, PHOS, PTT, PT ####[address] [phone] aPTT Coag (Bld) [Time] 44.1 s High 23.0-32.4 [facility] Comment on above: Result Comment: Unfr [...] laboratory APTT reagent in use throughout the [facility]. Performed By: #### P TT ####[address] [phone] Basic Metabolic Panlon 10-09 Anion gap [Moles/Vol] 11 mmol/L Normal 9-18 [facility] Comment on above: Performed By: #### C BCDIF, BMP, MG1, PHOS, PTT, PT ####[address] [phone] Calcium [Mass/Vol] 8.0 mg/dL Low 8.5-10.5 [facility] Comment on above: Performed By: #### C BCDIF, BMP, MG1, PHOS, PTT, PT ####[address] [phone] Chloride [Moles/Vol] 103 mmol/L Normal 98-110 [facility] Comment on above: Performed By: #### C BCDIF, BMP, MG1, PHOS, PTT, PT ####[place] [phone] CO2 [Moles/Vol] 24 mmol/L Normal 23-32 [facility] Comment on above: Performed By: #### C BCDIF, BMP, MG1, PHOS, PTT, PT ####[place] [phone] Creatinine [Mass/Vol] 0.68 mg/dL Low 0.70-1.40 [facility] Comment on above: Performed By: #### C BCDIF, BMP, MG1, PHOS, PTT, PT ####[place] [phone] eGFR- Amer. >60 Normal >60 [facility] Comment on above: Performed By: #### C BCDIF, BMP, MG1, PHOS, PTT, PT ####[place] [phone] GFR/1.73 sq M predicted among non-blacks MDRD (S/P/Bld) [Vol rate/Area] mL/min/{1.73_m2} Normal >60 [facility] Comment on above: Performed By: #### C BCDIF, BMP, MG1, PHOS, PTT, PT ####[place] [phone] Glucose [Mass/Vol] 127 mg/dL High 65-100 [facility] Comment on above: Performed By: #### C BCDIF, BMP, MG1, PHOS, PTT, PT ####[place] [phone] Potassium [Moles/Vol] 4.3 mmol/L Normal 3.5-5.0 [facility] Comment on above: Performed By: #### C BCDIF, BMP, MG1, PHOS, PTT, PT ####[place] [phone] Sodium [Moles/Vol] 138 mmol/L Normal 135-146 [facility] Comment on above: Performed By: #### C BCDIF, BMP, MG1, PHOS, PTT, PT ####[place] [phone] Urea nitrogen [Mass/Vol] 9 mg/dL Low 10-25 [facility] Comment on above: Performed By: #### C BCDIF, BMP, MG1, PHOS, PTT, PT ####[place] [phone] Anion gap [Moles/Vol] 8 mmol/L Low 9-18 [facility] Comment on above: Performed By: #### C BC, BMP, MG1, PHOS ####[place] [phone] Calcium [Mass/Vol] 7.9 mg/dL Low 8.5-10.5 [facility] Comment on above: Performed By: #### C BC, BMP, MG1, PHOS ####[place] [phone] Chloride [Moles/Vol] 101 mmol/L Normal 98-110 [facility] Comment on above: Performed By: #### C BC, BMP, MG1, PHOS ####[place] [phone] CO2 [Moles/Vol] 27 mmol/L Normal 23-32 [facility] Comment on above: Performed By: #### C BC, BMP, MG1, PHOS ####[place] [phone] Creatinine [Mass/Vol] 0.69 mg/dL Low 0.70-1.40 [facility] Comment on above: Performed By: #### C BC, BMP, MG1, PHOS ####[place] [phone] eGFR- Amer. >60 Normal >60 [facility] Comment on above: Performed By: #### C BC, BMP, MG1, PHOS ####[place] [phone] GFR/1.73 sq M predicted among non-blacks MDRD (S/P/Bld) [Vol rate/Area] mL/min/{1.73_m2} Normal >60 [facility] Comment on above: Performed By: #### C BC, BMP, MG1, PHOS ####[place] [phone] Glucose [Mass/Vol] 107 mg/dL High 65-100 [facility] Comment on above: Performed By: #### C BC, BMP, MG1, PHOS ####[place] [phone] Potassium [Moles/Vol] 3.8 mmol/L Normal 3.5-5.0 [facility] Comment on above: Performed By: #### C BC, BMP, MG1, PHOS ####[place] [phone] Sodium [Moles/Vol] 136 mmol/L Normal 135-146 [facility] Comment on above: Performed By: #### C BC, BMP, MG1, PHOS ####[place] [phone] Urea nitrogen [Mass/Vol] 11 mg/dL Normal 10-25 [facility] Comment on above: Performed By: #### C BC, BMP, MG1, PHOS ####[place] [phone] CASE MANAGEMon 10-10-2019 CASE MANAGEM HNO ID: [id number] Author: Bri (Rn) ОЛЕГ Swann Service: Case [...] 10, 2019 TIME: 4:23 PM PAGER/CONTACT #: [phone] Normal [facility] CBCon 10-10-2019 Erythrocyte distribution width (RBC) [Ratio] 16.0 % High 11.5-15.0 [facility] Comment on above: Performed By: #### C BC, BMP, MG1, PHOS ####[place] [phone] Hematocrit (Bld) [Volume fraction] 23.2 % Low 39.0-51.0 [facility] Comment on above: Performed By: #### C BC, BMP, MG1, PHOS ####[place] [phone] Hemoglobin (Bld) [Mass/Vol] 7.5 g/dL Low 13.0-17.0 [facility] Comment on above: Performed By: #### C BC, BMP, MG1, PHOS ####[place] [phone] MCH (RBC) [Entitic mass] 30.1 pG Normal 26.0-34.0 [facility] Comment on above: Performed By: #### C BC, BMP, MG1, PHOS ####[place] [phone] MCHC (RBC) [Mass/Vol] 32.3 g/dL Normal 30.5-36.0 [facility] Comment on above: Performed By: #### C BC, BMP, MG1, PHOS ####[place] [phone] MCV (RBC) [Entitic vol] 93.2 fL Normal 80.0-100.0 [facility] Comment on above: Performed By: #### C BC, BMP, MG1, PHOS ####[place] [phone] Platelet mean volume (Bld) [Entitic vol] 9.8 fL Normal 9.0-12.7 [facility] Comment on above: Performed By: #### C BC, BMP, MG1, PHOS ####[place] [phone] Platelets (Bld) [#/Vol] 180 10*3/uL Normal 150-400 [facility] Comment on above: Performed By: #### C BC, BMP, MG1, PHOS ####[place] [phone] RBC (Bld) [#/Vol] 2.49 10*6/uL Low 4.20-6.00 [facility] Comment on above: Performed By: #### C BC, BMP, MG1, PHOS ####[place] [phone] WBC (Bld) [#/Vol] 6.64 10*3/uL Normal 3.70-11.00 [facility] Comment on above: Performed By: #### C BC, BMP, MG1, PHOS ####[place] [phone] CBC and Differentialon 10-09 Abs Baso 0.03 k/uL Normal <0.11 [facility] Comment on above: Performed By: #### C BCDIF, PTT, FIBCT, PT ####[place] [phone] Abs Beaver 0.69 k/uL Normal <0.87 [facility] Comment on above: Performed By: #### C BCDIF, PTT, FIBCT, PT ####[place] [phone] Abs Neut 5.56 k/uL Normal 1.45-7.50 [facility] Comment on above: Performed By: #### C BCDIF, PTT, FIBCT, PT ####[place] [address] Basophils/100 WBC (Bld) 0.4 % Normal [facility] Comment on above: Performed By: #### C BCDIF, PTT, FIBCT, PT ####[place] [address] Eosinophils (Bld) [#/Vol] 10*3/uL Normal <0.46 [facility] Comment on above: Performed By: #### C BCDIF, PTT, FIBCT, PT ####[place] [address] Eosinophils/100 WBC (Bld) 0.3 % Normal [facility] Comment on above: Performed By: #### C BCDIF, PTT, FIBCT, PT ####[place] [address] Erythrocyte distribution width (RBC) [Ratio] 16.9 % High 11.5-15.0 [facility] Comment on above: Performed By: #### C BCDIF, PTT, FIBCT, PT ####[place] [address] Hematocrit (Bld) [Volume fraction] 21.7 % Low 39.0-51.0 [facility] Comment on above: Performed By: #### C BCDIF, PTT, FIBCT, PT ####[place] [address] Hemoglobin (Bld) [Mass/Vol] 7.1 g/dL Low 13.0-17.0 [facility] Comment on above: Performed By: #### C BCDIF, PTT, FIBCT, PT ####[place] [address] Lymphocytes (Bld) [#/Vol] 1.03 10*3/uL Normal 1.00-4.00 [facility] Comment on above: Performed By: #### C BCDIF, PTT, FIBCT, PT ####[place] [phone] Lymphocytes/100 WBC (Bld) 14.1 % Normal [facility] Comment on above: Performed By: #### C BCDIF, PTT, FIBCT, PT ####[place] [phone] MCH (RBC) [Entitic mass] 29.5 pG Normal 26.0-34.0 [facility] Comment on above: Performed By: #### C BCDIF, PTT, FIBCT, PT ####[place] [phone] MCHC (RBC) [Mass/Vol] 32.7 g/dL Normal 30.5-36.0 [facility] Comment on above: Performed By: #### C BCDIF, PTT, FIBCT, PT ####[place] [phone] MCV (RBC) [Entitic vol] 90.0 fL Normal 80.0-100.0 [facility] Comment on above: Performed By: #### C BCDIF, PTT, FIBCT, PT ####[place] [phone] Monocytes/100 WBC (Bld) 9.4 % Normal [facility] Comment on above: Performed By: #### C BCDIF, PTT, FIBCT, PT ####[place] [phone] Neutrophils/100 WBC (Bld) 75.8 % Normal [facility] Comment on above: Performed By: #### C BCDIF, PTT, FIBCT, PT ####[place] [phone] Platelet mean volume (Bld) [Entitic vol] 10.0 fL Normal 9.0-12.7 [facility] Comment on above: Performed By: #### C BCDIF, PTT, FIBCT, PT ####[place] [phone] Platelets (Bld) [#/Vol] 167 10*3/uL Normal 150-400 [facility] Comment on above: Performed By: #### C BCDIF, PTT, FIBCT, PT ####[place] [phone] RBC (Bld) [#/Vol] 2.41 10*6/uL Low 4.20-6.00 [facility] Comment on above: Performed By: #### C BCDIF, PTT, FIBCT, PT ####[place] [phone] WBC (Bld) [#/Vol] 7.33 10*3/uL Normal 3.70-11.00 [facility] Comment on above: Performed By: #### C BCDIF, PTT, FIBCT, PT ####[place] [phone] Abs Baso 0.04 k/uL Normal <0.11 [facility] Comment on above: Performed By: #### C BCDIF, BMP, MG1, PHOS, PTT, PT ####[place] [address] Abs Beaver 0.56 k/uL Normal <0.87 [facility] Comment on above: Performed By: #### C BCDIF, BMP, MG1, PHOS, PTT, PT ####[address] Abs Neut 5.40 k/uL Normal 1.45-7.50 [facility] Comment on above: Performed By: #### C BCDIF, BMP, MG1, PHOS, PTT, PT ####[address] Basophils/100 WBC (Bld) 0.6 % Normal [facility] Comment on above: Performed By: #### C BCDIF, BMP, MG1, PHOS, PTT, PT ####[place] [phone] DTYPE Auto Diff Normal [facility] Comment on above: Performed By: #### C BCDIF, PTT, FIBCT, PT ####[place] [address] Performed By: #### C BCDIF, BMP, MG1, PHOS, PTT, PT ####[place] [address] Eosinophils (Bld) [#/Vol] 0.06 10*3/uL Normal <0.46 [facility] Comment on above: Performed By: #### C BCDIF, BMP, MG1, PHOS, PTT, PT ####[place] [address] Eosinophils/100 WBC (Bld) 0.8 % Normal [facility] Comment on above: Performed By: #### C BCDIF, BMP, MG1, PHOS, PTT, PT ####[place] [address] Erythrocyte distribution width (RBC) [Ratio] 16.6 % High 11.5-15.0 [facility] Comment on above: Performed By: #### C BCDIF, BMP, MG1, PHOS, PTT, PT ####[place] [address] Hematocrit (Bld) [Volume fraction] 24.9 % Low 39.0-51.0 [facility] Comment on above: Performed By: #### C BCDIF, BMP, MG1, PHOS, PTT, PT ####[place] [address] Hemoglobin (Bld) [Mass/Vol] 8.3 g/dL Low 13.0-17.0 [facility] Comment on above: Performed By: #### C BCDIF, BMP, MG1, PHOS, PTT, PT ####[place] [address] Lymphocytes (Bld) [#/Vol] 1.07 10*3/uL Normal 1.00-4.00 [facility] Comment on above: Performed By: #### C BCDIF, BMP, MG1, PHOS, PTT, PT ####[place] [phone] Lymphocytes/100 WBC (Bld) 15.0 % Normal [facility] Comment on above: Performed By: #### C BCDIF, BMP, MG1, PHOS, PTT, PT ####[place] [phone] MCH (RBC) [Entitic mass] 30.3 pG Normal 26.0-34.0 [facility] Comment on above: Performed By: #### C BCDIF, BMP, MG1, PHOS, PTT, PT ####[place] [phone] MCHC (RBC) [Mass/Vol] 33.3 g/dL Normal 30.5-36.0 [facility] Comment on above: Performed By: #### C BCDIF, BMP, MG1, PHOS, PTT, PT ####[place] [phone] MCV (RBC) [Entitic vol] 90.9 fL Normal 80.0-100.0 [facility] Comment on above: Performed By: #### C BCDIF, BMP, MG1, PHOS, PTT, PT ####[phone] Monocytes/100 WBC (Bld) 7.9 % Normal [facility] Comment on above: Performed By: #### C BCDIF, BMP, MG1, PHOS, PTT, PT ####[place] [phone] Neutrophils/100 WBC (Bld) 75.7 % Normal [facility] Comment on above: Performed By: #### C BCDIF, BMP, MG1, PHOS, PTT, PT ####[address] [phone] Platelet mean volume (Bld) [Entitic vol] 9.8 fL Normal 9.0-12.7 [facility] Comment on above: Performed By: #### C BCDIF, BMP, MG1, PHOS, PTT, PT ####[address] [phone] Platelets (Bld) [#/Vol] 173 10*3/uL Normal 150-400 [facility] Comment on above: Performed By: #### C BCDIF, BMP, MG1, PHOS, PTT, PT ####[place] [phone] RBC (Bld) [#/Vol] 2.74 10*6/uL Low 4.20-6.00 [facility] Comment on above: Performed By: #### C BCDIF, BMP, MG1, PHOS, PTT, PT ####[address] [phone] WBC (Bld) [#/Vol] 7.13 10*3/uL Normal 3.70-11.00 [facility] Comment on above: Performed By: #### C BCDIF, BMP, MG1, PHOS, PTT, PT ####[address] [phone] Fibrinogenon 10-10-2019 Fibrinogen 410 mg/dL High 200-400 [facility] Comment on above: Performed By: #### C BCDIF, PTT, FIBCT, PT ####[address] [phone] HISTORY PHYSICALon 0 HISTORY PHYSICAL HNO ID: [id number] Author: Ryan May MD Service: Vascular Surgery Author Type: Physician Type: HANDP Filed: 10/10/2019 9:03 AM Note Text: As a result of the 09/03/19 order by [facility] Director Libby Harris M.D. to cancel non-essential surgeries that would use PPE, unless special criteria are met, I have reviewed the clinical record for this patient and have determined that the scheduled procedure meets the criteria to go forward because there is a threat of permanent dysfunction of an extremity or organ system. Possible thrombosis of the left LABORATORY MACHINIST graft. Possible hematoma. Plan to reexplore, evacuate hematoma, possible ileo-femoral bypass vs fem-fem bypass. Jermaine May MD Normal [facility] Hematocriton 10-10-2019 Hematocrit (Bld) [Volume fraction] 23.1 % Low 39.0-51.0 [facility] Comment on above: Performed By: #### H CT, HGB ####[place] [address] Hemoglobinon 10-10-2019 Hemoglobin (Bld) [Mass/Vol] 7.4 g/dL Low 13.0-17.0 [facility] Comment on above: Performed By: #### H CT, HGB ####[place] [address] Magnesiumon 10-10-2019 Magnesium [Mass/Vol] 1.8 mg/dL Normal 1.7-2.6 [facility] Comment on above: Performed By: #### C BCDIF, BMP, MG1, PHOS, PTT, PT ####[place] [address] Magnesium [Mass/Vol] 2.0 mg/dL Normal 1.7-2.6 [facility] Comment on above: Performed By: #### C BC, BMP, MG1, PHOS ####[place] [address] NURSING PROGon 10-10-2019 NURSING PROG HNO ID: [id number] Author: Yeimi (Rn) ОЛЕГ Wong Service: ? Author Type: Registered Nurse Type: Nursing Progress Note Filed: 10/11/2019 7:38 AM Note Text: Nursing Progress Note Patient Name: Pedro Pablo Sierra Patient Location: [id number]/[facility]-0 245 __ Daily Note: 1900 Received bedside report from Josse AHUJA. 1999 Assessment complete. Please see all flowsheets. 2100 2 units of blood ordered per Dr. Johnson. 2199 Started 1 unit of PRBC per order. 2229 Dr. Johnson and discharge planner Daphney rounding on pt. SBAR given. New orders received. 2214 Spoke sbox-nw-iccu with Dr. Johnson. Okay to go by cuff pressure. 2344 Started 1 unit of PRBC per order. 0000 Reassessment complete. Please see all flowsheets. 0130 Dr. Johnson at bedside. SBAR given. Per Dr. Johnson, draw AM labs at 0330. 0400 Reassessment complete. Please see all flowsheets. 0715 Bedside report given to Briana AHUJA. [facility] NURSING PROG HNO ID: [id number] Author: Fran (Rn) ОЛЕГ Quintana Service: Critical Care Author Type: Registered Nurse Type: Nursing Progress Note Filed: 10/10/2019 7:55 PM Note Text: Nursing Progress Note Patient Name: Pedro Pablo Sierra Patient Location: [id number]/[facility]-0 [facility] __ Daily Note: 0800: Full assessment complete. 0810: Talking with Misael, who would like amlodipine held this AM, okay to give metoprolol, and okayed by vascular surgery resident to give plavix. 0830: OR team at bedside. SBAR report. Plan to give cefazolin and PRBCs in OR. [phone]: On the phone with Joseph (pt's ex-) who is concerned because she was not updated on when pt went to surgery and is not getting updates like before via text. Joseph is also stating that she signed papers at [facility] recently transfering Health Care POA into her name. Last AD is from 2013 with Michelle (daughter) as POA. 1042: Page to case management [facility] 245 in OR Mr. Sierra [phone]: Ania (pt's ex-) states that she submitted papers recently while at [facility] that she is healthcare POA. Last AD I see is 2013 that has Michelle Richmond (pt's daughter) [place] [id number] 1600: pT disoriented to self and time emerging from anesthesia. 1620: Pt calling family consumer scientist light stating he is bleeding. Upon assessment, blood seeping gown and chucks pad under pt. Pressure applied to L groin sight. Page to Dr. Jeter (surgical instrument maker). 1621: Dr. Jeter at bedside, assuming full [...] elivated ptt. 190: Bedside report given to kobe AHUJA. This note was completed by: Fran Quintana RN [facility] NURSING PROG HNO ID: [id number] Author: Chrystal (Rn) ОЛЕГ Jacob Service: Critical Care Author Type: Registered Nurse Type: Nursing Progress Note Filed: 10/10/2019 6:32 AM Note Text: Nursing Progress Note Patient Name: Pedro Pablo Sierra Patient Location: [id number]/-[facility]-0 245 __ Daily Note: 190: Bedside handoff received from ОЛЕГ Patel. Patient resting in bed, Heparin gtt verified. Pulses dual checked 1999: Full assessment completed. See doc flowsheets. 0000: Reassessment completed. Pulses still present via dopplar. 0400: Reassessment completed. See doc flowsheets. 4985: Patient pulled out IV. Reduced access. Dr. Moody aware. IV fluids stopped. This note was completed by: Chrystal Jacob RN [facility] OPERATIVE NOon 10-10-2019 OPERATIVE NO HNO ID: [id number] Author: Ryan May MD Service: Vascular Surgery Author Type: Physician Type: Operative Report Filed: 10/10/2019 1:51 PM Note Text: OPERATIVE/PROCEDURE REPORT LOG ID: [id number] Surgery/Procedure Date: 10/10/2019 Incision/Procedure Start Time:9:52 AM Incision Close/Procedure End Time: 13:49 Surgeon(s)/Procedurali st(s) and Maintenance Equipment Operator(s): Surgeon(s) and Role: * Ryan May MD - Primary * Elly (Azalea) Stephanie - Resident - Assisting No Additional Staff Anesthesia: General Procedure(s): Left EIA to LABORATORY MACHINIST bypass with 7mm ringed PTFE end to [...] to side to the patch. The proximal LABORATORY MACHINIST was clamped with four orange clips. 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 2U family consumer scientist to OR Ok to cont. AC Ancef family consumer scientist to OR HOSPITALIZATION(S) Indication for admission/procedure: BLE [...] aorta to left SFA, [facility] Airway Difficulty: NA OR Course: [...] 10, 2019 TIME: 7:50 AM PAGER/CONTACT #: [phone] [facility] PROGRESS HNO ID: [id number] Author: Rashawn Huntley Service: Critical Care Author [...] CURRENT MEDICATIONS: Medications reviewed. Please refer to [facility] for list of inpatient medications. Current [...] (HumaLOG) SUBCUTANEOUS w MEALS AND HS Juliana Oden (Pa) - nicotine 21 mg/24 hr 1 Patch [...] mL PREMIX 0-3,000 Units/hr INTRAVENOUS CONTINUOUS Misael (Azalea) MD Steffany 11 mL/hr at 10/10/19 0012 1,100 Units/hr at 10/10/19 001 And - heparin RATE CHANGE bolus 1,000-4,000 Units for subtherapeutic aptt results 1,000-4,000 Units INTRAVENOUS PRN Misael Jeter MD 2,400 Units at 10/10/19 0012 - ceFAZolin iv piggyback 2 g in D5W (iso-osmotic) 100 mL (ANCEF) 2 g INTRAVENOUS Compressed Gas Plant Worker to OR Juliana Recinos (Pa)lan - NaCl 0.9% iv infusion 100 mL/hr INTRAVENOUS CONTINUOUS Misael (Binu Jeter MD Stopped at 10/10/19 0500 - fentaNYL 50 mcg/mL 25 mcg injection (SUBLIMAZE) 25 mcg INTRAVENOUS q 4 H PRN Misael (Res) MD Steffany - oxyCODONE IR 5-10 mg tab(s) (ROXICODONE) 5-10 mg ORAL q 4 H PRN Misael (Res) MD Steffany 5 mg at 10/09/192126 - [...] injection (GLUCAGEN) 1 mg INTRAMUSCULAR PRN Rashawn Medrick Or - dextrose 50% in water 25 mL syringe 12.5 g INTRAVENOUS PRN Rashawn Medrick - metoprolol tartrate (short acting) 12.5 mg tab(s) (LOPRESSOR) 12.5 mg ORAL q 12 H Rashawn Medrick 12.5 mg at 10/09/192123 PERTINENT CULTURES: Cultures were reviewed. Pertinent cultures from this hospitalization are listed below. Plese refer to [facility] for a full listing of cultures obtained during this hospitalization. ? N/A DIAGNOSTIC TESTS: The following diagnostic tests/findings were reviewed: ? Most recent labs and imaging results. MOST RECENT CXR FINDINGS: Increased vascular markings, likely fluid overload. OPERATIVE PROCEDURE(S): Date of surgery: 10/08/19 Procedure: Left common LABORATORY MACHINIST endarterectomy with bovine path Left profundoplasty Left [...] in 10/2013 who underwent a Redo left LABORATORY MACHINIST endarterectomy, left profundoplasty, left iliac stenting with Dr. May on 10/08/19. She is admitted to SICU post-operatively for neurovascular checks and close hemodynamic monitoring. Developed L LABORATORY MACHINIST occlusion POD2 and going back to OR [...] -- 10/08/19 1700 activity - [place] 10/08/19 1645 pneumatic compression stockings [place] VTE Prophylaxis: VTE prophylaxis appropriate To be seen and discussed on rounds with SICU staff: Dr. Huntley ICU Checklist --------- --- VTE Prophylaxis: SIGNATURE: Misael Jeter MD PATIENT NAME: Pedro Pablo Sierra DATE: October 10, 2019 TIME: 6:40 AM PAGER/CONTACT #: [phone] [facility] STAFF PHYSICIAN NOTE OF PERSONAL INVOLVEMENT [...] HTN GERD ? Procedure/Surgeon 10/08/19 S/P L LABORATORY MACHINIST endarterectomy with bovine path, profundoplasty and iliac [...] DO 7:56 AM October 10, 2019 Normal [facility] PTT,Anticoag Therapyon 10-09 aPTT Coag (Bld) [Time] 109.7 s High 23.0-32.4 [facility] Comment on above: Result Comment: Unfr [...] laboratory APTT reagent in use throughout the [facility]. Called to and read back by: Landry Quintana RN [facility] 10/10/19 Noemí HOLLIS Performed By: #### P TTAC ####[facility] [place], [place] [phone] Phosphoruson 10-10-2019 Phosphate [Mass/Vol] 3.0 mg/dL Normal 2.5-4.5 [facility] Comment on above: Performed By: #### C BCDIF, BMP, MG1, PHOS, PTT, PT ####[place] [phone] Phosphate [Mass/Vol] 2.1 mg/dL Low 2.5-4.5 [facility] Comment on above: Performed By: #### C BC, BMP, MG1, PHOS ####[place] [phone] Protimeon 10-10-2019 PT Coag (PPP) [Time] 10.5 s Normal 9.7-13.0 [facility] Comment on above: Performed By: #### C BCDIF, PTT, FIBCT, PT ####[place] [phone] PT Coag (PPP) [Time] 1.0 s Normal 0.9-1.3 [facility] Comment on above: Result Comment: Teri min [...] Chest 2012, 141:7S-47S Gio RA, et al. [facility] 2017, 70: 252-289 Performed By: #### C BCDIF, PTT, FIBCT, PT ####[place] [phone] Performed By: #### C BCDIF, BMP, MG1, PHOS, PTT, PT ####[address], [place] [phone] PT Coag (PPP) [Time] 10.9 s Normal 9.7-13.0 [facility] Comment on above: Performed By: #### C BCDIF, BMP, MG1, PHOS, PTT, PT ####[facility] [place], [place] [phone] SURGICAL PATHOLOGYon 020 SURGICAL PATHOLOGY Specimen originated from [facility] Specimen #: [id number] Submitting Physician: RYAN MAY FINAL DIAGNOSIS Left [...] x 1.0 cm. No vessel is seen. Retail Warehouse Associate sections are submitted in formalin in one cassette. SHOBHA/sierra 10/14/2019 Gross examination performed at [facility], [facility] [place] [address] Date of Report: 10/15/2019 Date of Procedure: 10/10/2019 Date of Receipt: 10/11/2019 Submitted by: RYAN MAY Location: [facility] Diagnostic interpretation performed at [facility], [address] [place] [address]. CLIA Number: [id number] Normal [facility] THERAPY NTon 10-10-2019 THERAPY NT HNO ID: [id number] Author: Shakir Alicea (Pt) Mode Service: Physical Therapy Author Type: Physical Therapist Type: Therapy (PT/OT/Speech/Resp) Filed: 10/10/2019 1:18 PM Note Text: .PHYSICAL THERAPY MISSED VISIT SERVICE DATE: 10/10/2019 SERVICE TIME: 1317 to 1317 ROOM: [facility] ( OPERATING ROOM) Attempted Treatment. Patient not seen due to Surgery. SIGNATURE: Shakir Coello PT PATIENT NAME: Pedro Pablo Sierra DATE: October 10, 2019 TIME: 1:18 PM [facility] THERAPY NT HNO ID: [id number] Author: Caitlin NessOt) William Service: Occupational Therapy Author Type: Occupational Therapist Type: Therapy (PT/OT/Speech/Resp) Filed: 10/10/2019 7:37 AM Note Text: OCCUPATIONAL THERAPY MISSED VISIT SERVICE DATE: 10/10/2019 SERVICE TIME: 0736 to 0736 ROOM: MP-LWDI-4111-01 Attempted Treatment. Patient not seen due to Surgery. Pt going back to OR. OT tx on hold today. Will continue to monitor. SIGNATURE: Caitlin Thomas OTR/L PATIENT NAME: Pedro Pablo Sierra DATE: October 10, 2019 TIME: 7:36 AM [facility] XR CHEST 1V FRONTAL PORTon 0 [...] airspace opacities, which may relate to atelectasis. Dial Screw Assembler: SHANELL Transcribe Date/Time: Oct 10 2019 6:59A Dictated by : DULCE BARRON MD This examination was interpreted and the report reviewed and electronically signed by: DULCE BARRON MD on Oct 10 2019 7:00AM EST [id number] [facility] ALLIED HEALTHon 10-09-2019 ALLIED HEALTH HNO ID: [id number] Author: Markell Alonzo (Chaplain) Service: Spiritual Care Author Type: Stencil Maker Type: Allied Health Filed: 10/09/2019 5:11 PM Note Text: SPIRITUAL CARE PROGRESS NOTE SERVICE DATE: 10/09/2019 SERVICE TIME: 170 While engaging in spiritual care phone rounds on the SICU unit, I contacted patient's?daughter Michelle through leaving a voicemail on his phone. ?I provided spiritual presence and bucolical support through?empathetic care and?through?offer of?prayers.?I shared with patient's?daughter?kiley t if further support was needed that contact could be with patient's RN who could page the on-call waste collector. ? To contact the Spiritual Care Department: Please call [phone]?or Page the On-Call Stencil Maker at pager [phone].??? Thank you for the opportunity to be of service. SIGNATURE: Chaplain Terry PATIENT NAME: Pedro Pablo Sierra DATE: October 09, 2019 TIME: 5:09 PM PAGER/CONTACT #: [phone] [facility] APTTon 10-09-2019 aPTT Coag (Bld) [Time] 20.8 s Low 23.0-32.4 [facility] Comment on above: Result Comment: Unfr [...] laboratory APTT reagent in use throughout the [facility]. Performed By: #### C BC, BMP, MG1, PHOS, PTT, PT ####[place] [phone] Basic Metabolic Panlon 10-08 Anion gap [Moles/Vol] 9 mmol/L Normal 9-18 [facility] Comment on above: Performed By: #### C BC, BMP, MG1, PHOS, PTT, PT ####[place] [phone] Calcium [Mass/Vol] 8.1 mg/dL Low 8.5-10.5 [facility] Comment on above: Performed By: #### C BC, BMP, MG1, PHOS, PTT, PT ####[place] [phone] Chloride [Moles/Vol] 101 mmol/L Normal 98-110 [facility] Comment on above: Performed By: #### C BC, BMP, MG1, PHOS, PTT, PT ####[place] [phone] CO2 [Moles/Vol] 26 mmol/L Normal 23-32 [facility] Comment on above: Performed By: #### C BC, BMP, MG1, PHOS, PTT, PT ####[place] [phone] Creatinine [Mass/Vol] 0.81 mg/dL Normal 0.70-1.40 [facility] Comment on above: Performed By: #### C BC, BMP, MG1, PHOS, PTT, PT ####[place] [phone] eGFR- Amer. >60 Normal >60 [facility] Comment on above: Performed By: #### C BC, BMP, MG1, PHOS, PTT, PT ####[place] [phone] GFR/1.73 sq M predicted among non-blacks MDRD (S/P/Bld) [Vol rate/Area] mL/min/{1.73_m2} Normal >60 [facility] Comment on above: Performed By: #### C BC, BMP, MG1, PHOS, PTT, PT ####[place] [phone] Glucose [Mass/Vol] 129 mg/dL High 65-100 [facility] Comment on above: Performed By: #### C BC, BMP, MG1, PHOS, PTT, PT ####[place] [phone] Potassium [Moles/Vol] 4.5 mmol/L Normal 3.5-5.0 [facility] Comment on above: Performed By: #### C BC, BMP, MG1, PHOS, PTT, PT ####[place] [phone] Sodium [Moles/Vol] 136 mmol/L Normal 135-146 [facility] Comment on above: Performed By: #### C BC, BMP, MG1, PHOS, PTT, PT ####[phone] Urea nitrogen [Mass/Vol] 15 mg/dL Normal 10-25 [facility] Comment on above: Performed By: #### C BC, BMP, MG1, PHOS, PTT, PT ####[place] [phone] CASE MANAGEMon 10-09-2019 CASE MANAGEM HNO ID: [id number] Author: Carly NessRn) ОЛЕГ Man Service: Case [...] week. Pt nurse is from [facility] ). Carmen would like AVS faxed at d/c to [phone] SIGNATURE: Carly Man RN,BSN PATIENT NAME: Pedro Pablo Sierra DATE: October 09, 2019 TIME: 1:44 PM PAGER/CONTACT #: [phone] [facility] CASE MGT INIT [facility] 2019 CASE MGT INIT [facility] HNO ID: [id number] Author: Carly (Олег) ОЛЕГ Man Service: Case Management Author Type: Registered Nurse Type: Care Mgt Initial Assessment Filed: 10/09/2019 12:41 PM Note Text: CARE MANAGEMENT: ASSESSMENT AND DISCHARGE PLAN SERVICE DATE: October 09, 2019 SERVICE TIME: 1240 PRIMARY CARE PHYSICIAN: DAIJA MORTON MD ADMISSION STATUS: Inpatient Needs Prior to Discharge: To Be Determined MEDICAL: [facility] MEDICARE 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 Last discharge within 30 days: No Advance Directive: Current Advance Directive: Health Care Power of Yacht Rigger;Living Will In Chart: Yes Up To Date [...] Completely I feel financially burdened by my neg-ao-rudjln expenses for my prescription medication:: 0 - Disagree Completely Risk Score: 0 Patient is categorized as: Low risk < 2 Are you interested in bedside delivery of your medications? No Is Patient Psychosocially Complex?: No ASSESSMENT AND PLAN: Medical Needs: Medical Needs: Two or more chronic diseases;Fall risk or frequent falls Psychosocial Needs: Psychosocial Needs: None FREEDOM OF CHOICE EXPLAINED: [place] of Choice Given: No Reason Not Given: No placements necessary POTENTIAL TRANSITION PLANS To Be Determined 69 yo male admitted for vascular procedure, vascular surgery following. 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 Pt states B/B [...] 09, 2019 TIME: 12:26 PM PAGER/CONTACT #: [phone] Normal [facility] CBCon 10-09-2019 Erythrocyte distribution width (RBC) [Ratio] 15.7 % High 11.5-15.0 [facility] Comment on above: Performed By: #### C BC, BMP, MG1, PHOS, PTT, PT ####[place] [phone] Hematocrit (Bld) [Volume fraction] 28.4 % Low 39.0-51.0 [facility] Comment on above: Performed By: #### C BC, BMP, MG1, PHOS, PTT, PT ####[place] [phone] MCH (RBC) [Entitic mass] 30.2 pG Normal 26.0-34.0 [facility] Comment on above: Performed By: #### C BC, BMP, MG1, PHOS, PTT, PT ####[place] [phone] MCHC (RBC) [Mass/Vol] 32.7 g/dL Normal 30.5-36.0 [facility] Comment on above: Performed By: #### C BC, BMP, MG1, PHOS, PTT, PT ####[place] [phone] MCV (RBC) [Entitic vol] 92.2 fL Normal 80.0-100.0 [facility] Comment on above: Performed By: #### C BC, BMP, MG1, PHOS, PTT, PT ####[place] [phone] Platelet mean volume (Bld) [Entitic vol] 9.9 fL Normal 9.0-12.7 [facility] Comment on above: Performed By: #### C BC, BMP, MG1, PHOS, PTT, PT ####[place] [phone] Platelets (Bld) [#/Vol] 220 10*3/uL Normal 150-400 [facility] Comment on above: Performed By: #### C BC, BMP, MG1, PHOS, PTT, PT ####[place] [phone] RBC (Bld) [#/Vol] 3.08 10*6/uL Low 4.20-6.00 [facility] Comment on above: Performed By: #### C BC, BMP, MG1, PHOS, PTT, PT ####[place] [phone] WBC (Bld) [#/Vol] 7.77 10*3/uL Normal 3.70-11.00 [facility] Comment on above: Performed By: #### C BC, BMP, MG1, PHOS, PTT, PT ####[place] [phone] CBC and Differentialon 10-08 Abs Baso <0.03 Normal <0.11 [facility] Comment on above: Performed By: #### C BCDIF ####[place] [phone] Abs Beaver 0.50 k/uL Normal <0.87 [facility] Comment on above: Performed By: #### C BCDIF ####[place] [phone] Abs Neut 5.57 k/uL Normal 1.45-7.50 [facility] Comment on above: Performed By: #### C BCDIF ####[place] [phone] Basophils/100 WBC (Bld) 0.3 % Normal [facility] Comment on above: Performed By: #### C BCDIF ####[place] [phone] DTYPE Auto Diff Normal [facility] Comment on above: Performed By: #### C BCDIF ####[place] [phone] Eosinophils (Bld) [#/Vol] 10*3/uL Normal <0.46 [facility] Comment on above: Performed By: #### C BCDIF ####[place] [phone] Eosinophils/100 WBC (Bld) 0.1 % Normal [facility] Comment on above: Performed By: #### C BCDIF ####[place] [phone] Erythrocyte distribution width (RBC) [Ratio] 16.0 % High 11.5-15.0 [facility] Comment on above: Performed By: #### C BCDIF ####[place] [phone] Hematocrit (Bld) [Volume fraction] 28.9 % Low 39.0-51.0 [facility] Comment on above: Performed By: #### C BCDIF ####[place] [phone] Hemoglobin (Bld) [Mass/Vol] 9.3 g/dL Low 13.0-17.0 [facility] Comment on above: Performed By: #### C BCDIF ####[place] [phone] Performed By: #### C BC, BMP, MG1, PHOS, PTT, PT ####[place] [phone] Lymphocytes (Bld) [#/Vol] 1.19 10*3/uL Normal 1.00-4.00 [facility] Comment on above: Performed By: #### C BCDIF ####[place] [phone] Lymphocytes/100 WBC (Bld) 16.3 % Normal [facility] Comment on above: Performed By: #### C BCDIF ####[place] [phone] MCH (RBC) [Entitic mass] 30.0 pG Normal 26.0-34.0 [facility] Comment on above: Performed By: #### C BCDIF ####[place] [phone] MCHC (RBC) [Mass/Vol] 32.2 g/dL Normal 30.5-36.0 [facility] Comment on above: Performed By: #### C BCDIF ####[place] [phone] MCV (RBC) [Entitic vol] 93.2 fL Normal 80.0-100.0 [facility] Comment on above: Performed By: #### C BCDIF ####[place] [phone] Monocytes/100 WBC (Bld) 6.9 % Normal [facility] Comment on above: Performed By: #### C BCDIF ####[place] [phone] Neutrophils/100 WBC (Bld) 76.4 % Normal [facility] Comment on above: Performed By: #### C BCDIF ####[place] [phone] Platelet mean volume (Bld) [Entitic vol] 9.8 fL Normal 9.0-12.7 [facility] Comment on above: Performed By: #### C BCDIF ####[facility] [place], [place] [phone] Platelets (Bld) [#/Vol] 200 10*3/uL Normal 150-400 [facility] Comment on above: Performed By: #### C BCDIF ####[place] [id number] [place], [place] [phone] RBC (Bld) [#/Vol] 3.10 10*6/uL Low 4.20-6.00 [facility] Comment on above: Performed By: #### C BCDIF ####[facility] [place], [place] [phone] WBC (Bld) [#/Vol] 7.29 10*3/uL Normal 3.70-11.00 [facility] Comment on above: Performed By: #### C BCDIF ####[facility] [place], [place] [phone] MEDICAL EMERon 10-09-2019 [facility] HNO ID: [id number] Author: Misael Jeter MD Service: Critical Care [...] Jeter MD General Surgery Resident PGY2 Pager: [phone] 10/09/2019 5:11 PM [facility] Magnesiumon 10-09-2019 Magnesium [Mass/Vol] 2.1 mg/dL Normal 1.7-2.6 [facility] Comment on above: Result Comment: Revi ewed Performed By: #### C BC, BMP, MG1, PHOS, PTT, PT ####[facility] [place], [place] [phone] NURSING PROGon 10-09-2019 NURSING PROG HNO ID: [id number] Author: Amanda NessRn) ОЛЕГ Delgadillo Service: Nursing Author Type: Registered Nurse Type: Nursing Progress Note Filed: 10/09/2019 6:36 PM Note Text: Nursing Progress Note Patient Name: Pedro Pablo Sierra Patient Location: [place] [address] [address] __ Daily Note: 1745: Bedside handoff received from ОЛЕГ Shields. 1800: Dr. Fish at bedside. Patient c/o numbness in left leg. Bilateral DP and PT pulses doppled. Dr. Fihs obtaining consent for surgery tomorrow. 1900: Bedside handoff given to ОЛЕГ Jarrell. This note was completed by: Amanda Delgadillo RN [facility] NURSING PROG HNO ID: [id number] Author: Cornelius NessRnPauline Gnozalez RN Service: Nursing Author Type: Registered Nurse Type: Nursing Progress Note Filed: 10/09/2019 5:39 PM Note Text: Nursing Progress Note Patient Name: Pedro Pablo Sierra Patient Location: [id number] __ Daily Note: 0700 Bedside report received from previous shift RN. 0800 Assessment completed and charted. Neuro intact. VSS. Pulses present via doppler. See flowsheets. 1200 Assessment completed and charted. 1600 Reassessment completed and charted. 1730 Heparin gtt started. See AUG. 1744 Bedside report given to Tigist AHUJA. This note was completed by: Cornelius Gonzalez RN [facility] NUTRITIONon 10-09-2019 NUTRITION HNO ID: [id number] Author: Muna (Martha) Evelyn Service: Nutrition Therapy Author Type: Registered [...] in 10/2013 who underwent a Redo left LABORATORY MACHINIST endarterectomy, left profundoplasty, left iliac stenting with [...] and weekends please page the Group Pager [phone] [facility] PROGRESSon 10-09-2019 PROGRESS HNO ID: [id number] Author: Noman Fish MD Service: Vascular Surgery [...] duplex US shows no flow in L LABORATORY MACHINIST. Formal arterial duplex of LLE shows occluded LABORATORY MACHINIST. Plan for exploration and revascularization with Dr. [...] -- 10/08/19 1700 activity - [place]) 10/08/19 1645 pneumatic compression stockings ([place] VTE Prophylaxis: VTE prophylaxis appropriate ALLERGIES [...] in 10/2013 who underwent a Redo left LABORATORY MACHINIST endarterectomy, left profundoplasty, left iliac stenting with [...] TIME: 8:26 AM PAGER/CONTACT #: See below. [id number] For questions Monday through Monday 6am to 6pm please page Red Team [phone] For questions during nights (6pm - 6am) and weekends, please contact the General Surgery Compressed Gas Plant Worker pager, [phone] [facility] PROGRESS HNO ID: [id number] Author: Rashawn Huntley Service: Critical Care Author [...] INTRAVENOUS CONTINUOUS Rashawn Huntley 100 mL/hr at 10/08/192204 100 mL/hr at 10/08/192204 - fentaNYL 50 mcg/mL 50 mcg injection [...] AT BEDTIME Rashawn Petersonrick 15 mg at 10/08/192102 - carBAMazepine 200 mg tab(s) (TEGretol) 200 mg ORAL BID Rashawn Petersonrick 200 mg at 10/08/192102 - gabapentin 300 mg cap(s) (NEURONTIN) 300 mg ORAL q 12 H Rashawn Petersonrick 300 mg at 10/08/19 1808 - pantoprazole DR 40 mg tab(s) (PROTONIX) 40 mg ORAL DAILY (6 AM) Rashawn Medpalma 40 mg at 10/09/19 0625 - dextrose 40 % 15 g 15 g ORAL PRN Rashawn Huntley Or - glucagon 1 mg injection (GLUCAGEN) 1 mg INTRAMUSCULAR PRN Rashawn Huntley Or - dextrose 50% in water 25 mL syringe 12.5 g INTRAVENOUS PRN Rashawn Nicholaspalma - insulin lispro injection (rapid acting) (HumaLOG) SUBCUTANEOUS q 6 H Rashawn Nicholaspalma - metoprolol tartrate (short acting) 12.5 mg tab(s) (LOPRESSOR) 12.5 mg ORAL q 12 H Rashawn Medrick 12.5 mg at 10/08/191805 - ceFAZolin iv piggyback 2 g in D5W (iso-osmotic) 100 mL (ANCEF) 2 g INTRAVENOUS q 12 HR Misael (Res) MD Steffany PERTINENT CULTURES: Cultures were reviewed. Pertinent cultures from this hospitalization are listed below. Plese refer to [facility] for a full listing of cultures obtained during this hospitalization. ? N/A DIAGNOSTIC TESTS: The following diagnostic tests/findings were reviewed: ? Most recent labs and imaging results. MOST RECENT CXR FINDINGS: n/a OPERATIVE PROCEDURE(S): Date of surgery: 10/08/19 Procedure: Left common LABORATORY MACHINIST endarterectomy with bovine path Left profundoplasty Left [...] in 10/2013 who underwent a Redo left LABORATORY MACHINIST endarterectomy, left profundoplasty, left iliac stenting with [...] -- 10/08/19 1700 activity - [place] 10/08/19 1645 pneumatic compression stockings [place] VTE Prophylaxis: VTE prophylaxis appropriate To be seen and discussed on rounds with SICU staff: Dr. Huntley ICU Checklist --------- --- VTE Prophylaxis: SIGNATURE: Misael Jeter MD PATIENT NAME: Pedro Pablo Sierra DATE: October 09, 2019 TIME: 6:40 AM PAGER/CONTACT #: [phone] [facility] STAFF PHYSICIAN NOTE OF PERSONAL INVOLVEMENT [...] Essential HTN GERD Procedure/Surgeon 10/08/19 S/P L LABORATORY MACHINIST endarterectomy with bovine path, profundoplasty and iliac [...] DO 8:20 AM October 09, 2019 Normal [facility] PTT,Anticoag Therapyon 10-08 aPTT Coag (Bld) [Time] 23.9 s Normal 23.0-32.4 [facility] Comment on above: Result Comment: Unfr [...] laboratory APTT reagent in use throughout the [facility]. Performed By: #### P T, PTTAC ####[facility] [place], [place] [phone] Phosphoruson 10-09-2019 Phosphate [Mass/Vol] 3.6 mg/dL Normal 2.5-4.5 [facility] [facility] Comment on above: Performed By: #### C BC, BMP, MG1, PHOS, PTT, PT ####[id number] [place], [place] [phone] Protimeon 10-09-2019 PT Coag (PPP) [Time] 10.2 s Normal 9.7-13.0 [facility] Comment on above: Performed By: #### P T, PTTAC ####[address] [phone] PT Coag (PPP) [Time] 1.0 s Normal 0.9-1.3 [facility] Comment on above: Result Comment: Teri min [...] Chest 2012, 141:7S-47S Gio KENNY et al. [facility] 2017, 70: 252-289 Performed By: #### P T, PTTAC ####[address] [phone] Performed By: #### C BC, BMP, MG1, PHOS, PTT, PT ####[address] [phone] PT Coag (PPP) [Time] 10.5 s Normal 9.7-13.0 [facility] Comment on above: Performed By: #### C BC, BMP, MG1, PHOS, PTT, PT ####[address] [phone] Staph aureus PCRon 0 MRSA PCR Negative [facility] Comment on above: Performed By: #### S APCR ####[place] [phone] [place], [place] [phone] S aureus Spec Source Nasal Normal [facility] Comment on above: Performed By: #### S APCR ####[place] [address] [address] [phone] Staph aureus PCR Negative [facility] Comment on above: Performed By: #### S APCR ####[place] [phone] THERAPY NTon 10-09-2019 THERAPY NT HNO ID: [id number] Author: Shakir Alicea (Pt) Mode Service: Physical Therapy Author Type: Physical Therapist Type: Therapy (PT/OT/Speech/Resp) Filed: 10/09/2019 2:58 PM Note Text: Physical Therapy Evaluation SERVICE DATE: 10/09/2019 SERVICE TIME: 1055 to 1120 ROOM: [id number] Recommended Discharge Disposition: Home PT Anticipated Discharge [...] ness on feet Interventions Provided: Evaluation;Gait Training (28566) $ Evaluation-Moderate (59488) Billed Units: 1 unit Gait Training (21541) Treatment Minutes: 10 1 unit Skilled Intervention(s): [...] Consult : PVD s/p L LE redo LABORATORY MACHINIST endarterectomy, L profundoplasty, iliac stenting on 10/08/19 Relevant Past Medical History: CAD, [place], HTN, HLD, COPD, PJ, DM, anxiety, depression, blind R eye Patient Report: Pt agreeable to participate in therapy session Home Environment Patient Lives With: Self/Alone Assistance Available: multimedia project manager Entry To Home: Stairs;Other: See Comment(stair lift) [...] October 09, 2019 TIME: 2:46 PM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 or [...] 4 times daily. 5. I have reviewed F and [facility] records for a [...] of my answers. ? Emilie Jauregui PA-C [facility] Respiratory [place] [address] [address] ? Attending Note I have [...] stratify ? 2. Coronary artery disease involving [place] heart without angina pectoris, unspecified vessel or [...] BP: 160/101 149/71 PVD (peripheral vascular disease) ([facility]) Assessment: s/p multiple interventions with aortoiliac disease COPD (chronic obstructive pulmonary disease) ([facility]) Assessment: severe, attempting to quit, Nicoderm [...] 11, 2019 TIME: 11:52 AM PAGER/CONTACT #: [facility] 09-02-2019 HOSP Patient:Pedro Pablo Sierra MRN: Height:5' 8(1.727 m) Weight:169 lb (76.658 kg) Outpatient Medications as of 10/10/19: aspirin 81 mg chewable tablet gabapentin (NEURONTIN) 300 mg capsule warfarin (COUMADIN) 5 mg tablet enoxaparin (LOVENOX) 60 mg/0.6 mL syrg atorvastatin (LIPITOR) 40 mg tablet carBAMazepine XR (TEGRETOL XR) 200 mg 12 hr tablet perflutren lipid microspheres (DEFINHeyy) 1.1 mg/mL injection (to be provided with [...] disease) [I25.10] COPD (chronic obstructive pulmonary disease) ([facility]) [J44.9] Tobacco use disorder [F17.200] Anxiety and [...] stenting 10/08/2019 [I73.9] PVD (peripheral vascular disease) ([facility]) [I73.9] Lupus anticoagulant disorder ([facility]) [D68.62] Smoker [F17.200] Lipoma of abdominal wall [...] 23.1 % 10/10/2019 51.0 39.0 Progress Notes ([facility]): Aleja Barrett RN 10/07/2019 [...] RN and I am calling from the [facility] on behalf of your PCP, DAIJA [...] like to speak with a social work meat team member to help give you support for any [...] the Track Pt Outreach section. Progress Notes ([facility]): Leidy Francisco LPN 10/07/2019 [...] No Please review and advise. Kaleb Ngo APRN.ACE 10/07/2019 8:09 AM Signed The following approved [...] [employer] (ACE) Kaleb Ngo APRN.CNP Normal [facility] Culture, urine Bacteria identified Cx Nom (U) Presumptive E. coli [facility] Work Phone: Lower GI hemoglobin IA Ql (S tl) Stool Occult Blood (LACI) Positive [facility] Work Phone: Vital Signs Date Time Vital Sign Value Performing Clinician Faci lity 01-23-2025 10:38-0400 Body temperature 98 [degF] Dr. Daija Morton MD Work Phone: [facility] 01-23-2025 10:38-0400 Diastolic blood pressure 60 mm[Hg] Dr. Daija Morton MD Work Phone: 0(542)838-431051 [place] [address] 01-23-2025 10:38-0400 Heart rate 66 /min Dr. Daija Morton MD Work Phone: 0(744)972-040451 [place] [address] 01-23-2025 10:38-0400 Respiratory rate 17 /min Dr. Daija Morton MD Work Phone: [facility] 01-23-2025 10:38-0400 SaO2% (BldA) [Mass fraction] 92 % Dr. Daija Morton MD Work Phone: [facility] 01-23-2025 10:38-0400 Systolic blood pressure 102 mm[Hg] Dr. Daija Morton MD Work Phone: 3(963)891-628151 [place] [address] 01-21-2025 09:04-0400 Body temperature 97.5 [degF] Dr. Daija Morton MD Work Phone: 7(395)831-293551 [place] [address] 01-21-2025 09:04-0400 Diastolic blood pressure 63 mm[Hg] Dr. Daija Morton MD Work Phone: [facility] 01-21-2025 09:04-0400 Heart rate 60 /min Dr. Daija Morton MD Work Phone: 7(548)050-166971 [place] [address] 01-21-2025 09:04-0400 Respiratory rate 18 /min Dr. Daija Morton MD Work Phone: 3(004)535-534871 [place] [address] 01-21-2025 09:04-0400 Systolic blood pressure 100 mm[Hg] Dr. Daija Morton MD Work Phone: 6(725)755-153371 [place] [address] 01-08-2025 19:50-0400 Body temperature 97.5 [degF] Dr. Daija Morton MD Work Phone: 7(755)172-961671 [place] [address] 01-08-2025 19:50-0400 Diastolic blood pressure 63 mm[Hg] Dr. Daija Morton MD Work Phone: 1(173)012-978871 [place] [address] 01-08-2025 19:50-0400 Heart rate 82 /min Dr. Daija Morton MD Work Phone: 0(555)844-832771 [place] [address] 01-08-2025 19:50-0400 Inhaled oxygen flow rate 2 L/min Dr. Daija Morton MD Work Phone: 5(725)333-651271 [place] [address] 01-08-2025 19:50-0400 Respiratory rate 18 /min Dr. Daija Morton MD Work Phone: 2(756)020-212971 [place] [address] 01-08-2025 19:50-0400 SaO2% (BldA) [Mass fraction] 96 % Dr. Daija Morton MD Work Phone: 9(882)654-326071 [place] [address] 01-08-2025 19:50-0400 Systolic blood pressure 133 mm[Hg] Dr. Daija Morton MD Work Phone: 1(403)491-056271 [place] [address] 01-08-2025 19:10-0400 Heart rate 80 /min Dr. Daija Morton MD Work Phone: 9(356)830-576371 [place] [address] 01-08-2025 19:10-0400 Respiratory rate 24 /min Dr. Daija Morton MD Work Phone: 5(371)386-432071 [place] [address] 01-08-2025 19:10-0400 SaO2% (BldA) [Mass fraction] 91 % Dr. Daija Morton MD Work Phone: 5(823)887-596671 [place] [address] 01-08-2025 16:07-0400 Body temperature 97.7 [degF] Dr. Daija Morton MD Work Phone: 5(681)729-707071 [place] [address] 01-08-2025 16:07-0400 Diastolic blood pressure 56 mm[Hg] Dr. Daija Morton MD Work Phone: 6(421)017-179771 [place] [address] 01-08-2025 16:07-0400 Inhaled oxygen flow rate 2 L/min Dr. Daija Morton MD Work Phone: 4(706)457-779571 [place] [address] 01-08-2025 16:07-0400 Systolic blood pressure 112 mm[Hg] Dr. Daija Morton MD Work Phone: 0(218)801-126671 [place] [address] 01-08-2025 03:12-0400 Body mass index (BMI) [Ratio] 19.8 kg/m2 Dr. Daija Morton MD Work Phone: 8(454)880-971471 [place] [address] 01-08-2025 03:12-0400 Body weight 66.[address] Daija Morton MD Work Phone: 7(826)023-363271 [place] [address] 01-07-2025 09:26-0400 Body height 182.[address] Daija Morton MD Work Phone: 9(038)294-123971 [place] [address] 01-06-2025 15:50-0400 Inhaled oxygen concentration 35 % Dr. Daija Morton MD Work Phone: 1(610)236-010471 [place] [address] 01-05-2025 14:00-0400 Body temperature 98.1 [degF] Dr. Daija Morton MD Work Phone: 9(824)894-045871 [place] [address] 01-05-2025 14:00-0400 Diastolic blood pressure 80 mm[Hg] Dr. Daija Morton MD Work Phone: 4(948)999-241671 [place] [address] 01-05-2025 14:00-0400 Heart rate 71 /min Dr. Daija Morton MD Work Phone: 5(294)477-929771 [place] [address] 01-05-2025 14:00-0400 Respiratory rate 34 /min Dr. Daija Morton MD Work Phone: 8(933)989-789671 [place] [address] 01-05-2025 14:00-0400 SaO2% (BldA) [Mass fraction] 93 % Dr. Daija Morton MD Work Phone: 1(861)823-675571 [place] [address] 01-05-2025 14:00-0400 Systolic blood pressure 157 mm[Hg] Dr. Daija Morton MD Work Phone: 7(417)043-477871 [place] [address] 01-05-2025 13:33-0400 Inhaled oxygen concentration 35 % Dr. Daija Morton MD Work Phone: 5(020)146-351871 [place] [address] 01-05-2025 13:33-0400 Inhaled oxygen flow rate 10 L/min Dr. Daija Morton MD Work Phone: 4(396)560-274771 [place] [address] 01-05-2025 09:38-0400 Body height 182.[address] Daija Morton MD Work Phone: 3(411)399-166071 [place] [address] 01-05-2025 09:38-0400 Body mass index (BMI) [Ratio] 22.5 kg/m2 Dr. Daija Morton MD Work Phone: 1(135)133-621871 [place] [address] 01-05-2025 09:38-0400 Body weight 75.[address] Daija Morton MD Work Phone: 5(294)641-721971 [place] [address] 01-03-2025 10:00-0400 Diastolic blood pressure 73 mm[Hg] Dr. Daija Morton MD Work Phone: 9(302)048-725971 [place] [address] 01-03-2025 10:00-0400 Heart rate 53 /min Dr. Daija Morton MD Work Phone: 7(764)258-407371 [place] [address] 01-03-2025 10:00-0400 Respiratory rate 16 /min Dr. Daija Morton MD Work Phone: 3(569)566-255071 [place] [address] 01-03-2025 10:00-0400 SaO2% (BldA) [Mass fraction] 99 % Dr. Daija Morton MD Work Phone: 3(675)890-799371 [place] [address] 01-03-2025 10:00-0400 Systolic blood pressure 174 mm[Hg] Dr. Daija Morton MD Work Phone: 0(386)938-729071 [place] [address] 01-03-2025 08:17-0400 Body temperature 97.6 [degF] Dr. Daija Morton MD Work Phone: 5(418)312-026271 [place] [address] 01-03-2025 06:27-0400 Body height 182.[address] Daija Morton MD Work Phone: 4(589)986-976571 [place] [address] 01-03-2025 06:27-0400 Body mass index (BMI) [Ratio] 20.4 kg/m2 Dr. Daija Morton MD Work Phone: 2(349)393-829571 [place] [address] 01-03-2025 06:27-0400 Body weight 68.[address] Daija Morton MD Work Phone: 2(950)148-071671 [place] [address] 12-26-2024 18:05-0400 Diastolic blood pressure 72 mm[Hg] Dr. Daija Morton MD Work Phone: 4(105)511-124571 [place] [address] 12-26-2024 18:05-0400 Heart rate 74 /min Dr. Daija Morton MD Work Phone: 0(138)614-371071 [place] [address] 12-26-2024 18:05-0400 Systolic blood pressure 162 mm[Hg] Dr. Daija Morton MD Work Phone: 5(318)341-171571 [place] [address] 12-26-2024 14:27-0400 Body temperature 97.9 [degF] Dr. Daija Morton MD Work Phone: 5(162)897-422371 [place] [address] 12-26-2024 14:27-0400 Inhaled oxygen flow rate 2 L/min Dr. Daija Morton MD Work Phone: 9(905)953-030471 [place] [address] 12-26-2024 14:27-0400 Respiratory rate 18 /min Dr. Daija Morton MD Work Phone: 7(457)787-270671 [place] [address] 12-26-2024 14:27-0400 SaO2% (BldA) [Mass fraction] 96 % Dr. Daija Morton MD Work Phone: 6(348)721-498871 [place] [address] 12-26-2024 04:00-0400 Body mass index (BMI) [Ratio] 24.5 kg/m2 Dr. Daija Morton MD Work Phone: 3(224)739-922171 [place] [address] 12-25-2024 11:12-0400 Body height 172.[address] Daija Morton MD Work Phone: 8(935)907-998171 [place] [address] 12-25-2024 11:12-0400 Body weight [address] Daija Morton MD Work Phone: 9(003)498-675471 [place] [address] 12-17-2024 18:14-0400 Body temperature 98.5 [degF] Dr. Daija Morton MD Work Phone: 1(135)462-156671 [place] [address] 12-17-2024 18:14-0400 Diastolic blood pressure 91 mm[Hg] Dr. Daija Morton MD Work Phone: 4(355)295-156171 [place] [address] 12-17-2024 18:14-0400 Heart rate 64 /min Dr. Daija Morton MD Work Phone: 0(966)452-979671 [place] [address] 12-17-2024 18:14-0400 Respiratory rate 16 /min Dr. Daija Morton MD Work Phone: 0(678)620-188871 [place] [address] 12-17-2024 18:14-0400 SaO2% (BldA) [Mass fraction] 99 % Dr. Daija Morton MD Work Phone: 1(196)300-506271 [place] [address] 12-17-2024 18:14-0400 Systolic blood pressure 197 mm[Hg] Dr. Daija Morton MD Work Phone: 4(269)336-536771 [place] [address] 12-17-2024 18:00-0400 Inhaled oxygen flow rate 2 L/min Dr. Daija Morton MD Work Phone: 9(811)128-483271 [place] [address] 12-17-2024 16:21-0400 Body height 172.[address] Daija Morton MD Work Phone: 2(352)288-994771 [place] [address] 12-17-2024 16:21-0400 Body mass index (BMI) [Ratio] 24.5 kg/m2 Dr. Daija Morton MD Work Phone: 6(727)282-132371 [place] [address] 12-17-2024 16:21-0400 Body weight [address] Daija Morton MD Work Phone: 0(934)608-926271 [place] [address] 12-16-2024 20:45-0400 Heart rate 76 /min Dr. Daija Morton MD Work Phone: 8(625)255-848571 [place] [address] 12-16-2024 20:45-0400 Respiratory rate 20 /min Dr. Daija Morton MD Work Phone: 6(007)194-113671 [place] [address] 12-16-2024 19:55-0400 Body temperature 98 [degF] Dr. Daija Morton MD Work Phone: 9(181)806-117771 [place] [address] 12-16-2024 19:55-0400 Diastolic blood pressure 72 mm[Hg] Dr. Daija Morton MD Work Phone: 8(033)931-875671 [place] [address] 12-16-2024 19:55-0400 Inhaled oxygen flow rate 2 L/min Dr. Daija Morton MD Work Phone: 5(695)866-420471 [place] [address] 12-16-2024 19:55-0400 SaO2% (BldA) [Mass fraction] 94 % Dr. Daija Morton MD Work Phone: 6(261)403-105371 [place] [address] 12-16-2024 19:55-0400 Systolic blood pressure 160 mm[Hg] Dr. Daija Morton MD Work Phone: 5(795)066-106071 [place] [address] 12-16-2024 03:13-0400 Body mass index (BMI) [Ratio] 23.4 kg/m2 Dr. Daija Morton MD Work Phone: 1(040)776-524271 [place] [address] 12-16-2024 03:13-0400 Body weight 70.[address] Daija Morton MD Work Phone: 3(370)639-357171 [place] [address] 12-14-2024 13:01-0400 Body height 172.[address] Daija Morton MD Work Phone: 9(586)580-113971 [place] [address] 12-13-2024 20:55-0400 Body temperature 98.3 [degF] Dr. Daija Morton MD Work Phone: 0(321)490-019171 [place] [address] 12-13-2024 20:55-0400 Diastolic blood pressure 73 mm[Hg] Dr. Daija Morton MD Work Phone: 5(914)916-773271 [place] [address] 12-13-2024 20:55-0400 Heart rate 65 /min Dr. Daija Morton MD Work Phone: 1(612)847-834771 [place] [address] 12-13-2024 20:55-0400 Respiratory rate 26 /min Dr. Daija Morton MD Work Phone: 3(775)924-966571 [place] [address] 12-13-2024 20:55-0400 SaO2% (BldA) [Mass fraction] 98 % Dr. Daija Morton MD Work Phone: 8(448)529-391371 [place] [address] 12-13-2024 20:55-0400 Systolic blood pressure 191 mm[Hg] Dr. Daija Morton MD Work Phone: 6(839)535-148071 [place] [address] 12-13-2024 18:10-0400 Inhaled oxygen flow rate 3.5 L/min Dr. Daija Morton MD Work Phone: 3(183)121-946671 [place] [address] 12-13-2024 17:46-0400 Body height 172.[address] Daija Morton MD Work Phone: 0(185)250-424371 [place] [address] 12-13-2024 17:46-0400 Body mass index (BMI) [Ratio] 24.3 kg/m2 Dr. Daija Morton MD Work Phone: 0(686)517-185871 [place] [address] 12-13-2024 17:46-0400 Body weight 72.[address] Daija Morton MD Work Phone: 1(097)012-908171 [place] [address] 12-12-2024 13:57-0400 Body mass index (BMI) [Ratio] 24.05 kg/m2 Anjel Older TRAILER DRIVER.[employer]NA[employer] HAT SMEARER Work Phone: 6(836)605-562510 [place] [address] 12-12-2024 13:57-0400 Body weight 71.76 kg Anjel Older TRAILER DRIVER.[employer]NAMA HAT SMEARER Work Phone: 4(684)766-512610 [place] [address] 12-12-2024 13:57-0400 Diastolic blood pressure 83 mm[Hg] Anjel Older TRAILER DRIVER.PANAMA HAT SMEARER Work Phone: [facility] 12-12-2024 13:57-0400 Heart rate 65 /min Anjel Older TRAILER DRIVER.[employer]NAMA HAT SMEARER Work Phone: [facility] 12-12-2024 13:57-0400 Respiratory rate 20 /min Anjel Older TRAILER DRIVER.PANAMA HAT SMEARER Work Phone: [facility] 12-12-2024 13:57-0400 SaO2% (BldA) [Mass fraction] 94 % Anjel Older TRAILER DRIVER.[employer]NAMA HAT SMEARER Work Phone: [facility] 12-12-2024 13:57-0400 Systolic blood pressure 185 mm[Hg] Anjel Older TRAILER DRIVER.[employer]NAMA HAT SMEARER Work Phone: [facility] 09-02-2024 20:48-0400 Heart rate 62 /min Dr. Daija Morton MD Work Phone: [facility] 09-02-2024 19:34-0400 Body temperature 97.5 [degF] Dr. Daija Morton MD Work Phone: 3(579)321-858251 [place] [address] 09-02-2024 19:34-0400 Diastolic blood pressure 77 mm[Hg] Dr. Daija Morton MD Work Phone: [facility] 09-02-2024 19:34-0400 Respiratory rate 16 /min Dr. Daija Morton MD Work Phone: [facility] 09-02-2024 19:34-0400 SaO2% (BldA) [Mass fraction] 92 % Dr. Daija Morton MD Work Phone: [facility] 09-02-2024 19:34-0400 Systolic blood pressure 146 mm[Hg] Dr. Daija Morton MD Work Phone: 9(987)795-526751 [place] [address] 09-02-2024 10:22-0400 Body height 172.[address] Daija Morton MD Work Phone: 1(991)810-199851 [place] [address] 09-02-2024 10:22-0400 Body weight 68.[address] Daija Morton MD Work Phone: 7(363)876-343751 [place] [address] 09-02-2024 06:00-0400 Body mass index (BMI) [Ratio] 22.8 kg/m2 Dr. Daija Morton MD Work Phone: 2(753)418-104571 [place] [address] 09-01-2024 22:41-0400 Inhaled oxygen flow rate 2 L/min Dr. Daija Morton MD Work Phone: 2(774)907-879671 [place] [address] 08-25-2024 18:11-0400 Diastolic blood pressure 90 mm[Hg] Dr. Daija Morton MD Work Phone: 6(446)174-558871 [place] [address] 08-25-2024 18:11-0400 Heart rate 66 /min Dr. Daija Morton MD Work Phone: 7(544)325-527871 [place] [address] 08-25-2024 18:11-0400 Respiratory rate 24 /min Dr. Daija Morton MD Work Phone: 4(935)376-840371 [place] [address] 08-25-2024 18:11-0400 SaO2% (BldA) [Mass fraction] 93 % Dr. Daija Morton MD Work Phone: 3(504)253-078571 [place] [address] 08-25-2024 18:11-0400 Systolic blood pressure 197 mm[Hg] Dr. Daija Morton MD Work Phone: 5(752)031-405571 [place] [address] 08-25-2024 16:12-0400 Body height 165.[address] Daija Morton MD Work Phone: 0(092)071-130571 [place] [address] 08-25-2024 16:12-0400 Body temperature 97.7 [degF] Dr. Daija Morton MD Work Phone: 5(470)936-370271 [place] [address] 03-23-2024 13:19-0400 Diastolic blood pressure 98 mm[Hg] Pura Carter APRN.[employer] H[employer] SMEARER Work Phone: 9(098)878-178110 [place] [address] 03-23-2024 13:19-0400 Systolic blood pressure 230 mm[Hg] Pura Carter APRN.[employer] H[employer] SMEARER Work Phone: 0(888)041-881810 [place] [address] 03-23-2024 13:12-0400 Body mass index (BMI) [Ratio] 20.92 kg/m2 Pura Praisler-Wood TRAILER DRIVER.[employer] H[employer] SMEARER Work Phone: [facility] 03-23-2024 13:12-0400 Body temperature 96.91 [degF] Pura Praisler-Wood TRAILER DRIVER.[employer] H[employer] SMEARER Work Phone: [facility] 03-23-2024 13:12-0400 Body weight 62.4 kg Pura Praisler-Wood TRAILER DRIVER.[employer] H[employer] SMEARER Work Phone: [facility] 03-23-2024 13:12-0400 Heart rate 74 /min Pura Praisler-Wood TRAILER DRIVER.[employer] H[employer] SMEARER Work Phone: [facility] 03-23-2024 13:12-0400 Respiratory rate 16 /min Pura Praisler-Wood TRAILER DRIVER.[employer] H[employer] SMEARER Work Phone: [facility] 11-21-2023 12:49-0400 Diastolic blood pressure 94 mm[Hg] Rebekah Bogner PA-C Work Phone: [facility] 11-21-2023 12:49-0400 Systolic blood pressure 200 mm[Hg] Rebekah Bogner PA-C Work Phone: [facility] 11-21-2023 12:42-0400 Body mass index (BMI) [Ratio] 22.96 kg/m2 Rebekah Bogner PA-C Work Phone: [facility] 11-21-2023 12:42-0400 Body weight 68.49 kg Rebekah Bogner PA-C Work Phone: [facility] 11-21-2023 12:42-0400 Heart rate 60 /min Rebekah Bogner PA-C Work Phone: [facility] 11-21-2023 12:42-0400 Respiratory rate 16 /min Rebekah Bogner PA-C Work Phone: [facility] 11-21-2023 12:42-0400 SaO2% (BldA) [Mass fraction] 92 % Rebekah Bogner PA-C Work Phone: [facility] 08-02-2023 19:35-0500 Inhaled oxygen flow rate 2 L/min Dr. Daija Morton Work Phone: 8(236)348-890371 [place] [address] 08-02-2023 19:27-0500 Body temperature 97.9 [degF] Dr. Daija Morton Work Phone: 5(998)099-685671 [place] [address] 08-02-2023 19:27-0500 Diastolic blood pressure 59 mm[Hg] Dr. Daija Morton Work Phone: 2(467)857-600471 [place] [address] 08-02-2023 19:27-0500 Heart rate 98 /min Dr. Daija Morton Work Phone: 4(094)934-711371 [place] [address] 08-02-2023 19:27-0500 Respiratory rate 16 /min Dr. Daija Morton Work Phone: 7(903)779-425771 [place] [address] 08-02-2023 19:27-0500 SaO2% (BldA) [Mass fraction] 93 % Dr. Daija Morton Work Phone: 5(605)420-394571 [place] [address] 08-02-2023 19:27-0500 Systolic blood pressure 149 mm[Hg] Dr. Daija Morton Work Phone: 3(810)537-830271 [place] [address] 07-31-2023 10:17-0500 Body height 172.[address] Daija Morton Work Phone: 9(444)041-648971 [place] [address] 07-31-2023 10:17-0500 Body weight 67.[address] Daija Morton Work Phone: 1(832)012-822871 [place] [address] 07-31-2023 00:57-0500 Body mass index (BMI) [Ratio] 22.4 kg/m2 Dr. Daija Morton Work Phone: 9(773)831-835371 [place] [address] 07-31-2023 00:05-0500 Body temperature 99 [degF] Dr. Daija Morton Work Phone: 4(860)699-528271 [place] [address] 07-31-2023 00:05-0500 Diastolic blood pressure 107 mm[Hg] Dr. Daija Morton Work Phone: 3(168)063-973551 [place] [address] 07-31-2023 00:05-0500 Heart rate 107 /min Dr. Daija Morton Work Phone: 4(643)970-026171 [place] [address] 07-31-2023 00:05-0500 Respiratory rate 30 /min Dr. Daija Morton Work Phone: 6(593)332-891771 [place] [address] 07-31-2023 00:05-0500 SaO2% (BldA) [Mass fraction] 98 % Dr. Daija Morton Work Phone: 6(200)262-991871 [place] [address] 07-31-2023 00:05-0500 Systolic blood pressure 173 mm[Hg] Dr. Daija Morton Work Phone: 2(474)392-238571 [place] [address] 07-30-2023 23:25-0500 Inhaled oxygen flow rate 3 L/min Dr. Daija Morton Work Phone: 1(293)035-414971 [place] [address] 07-30-2023 20:30-0500 Body height 172.[address] Daija Morton Work Phone: 4(445)495-946771 [place] [address] 07-30-2023 20:30-0500 Body mass index (BMI) [Ratio] 24.2 kg/m2 Dr. Daija Morton Work Phone: 3(621)312-145171 [place] [address] 07-30-2023 20:30-0500 Body weight 72.[address] Daija Morton Work Phone: 4(019)179-660271 [place] [address] 07-26-2023 12:10-0500 Diastolic blood pressure 59 mm[Hg] Dr. Daija Morton Work Phone: 3(785)618-360471 [place] [address] 07-26-2023 12:10-0500 Heart rate 67 /min Dr. Daija Morton Work Phone: 2(397)915-846971 [place] [address] 07-26-2023 12:10-0500 Respiratory rate 18 /min Dr. Daija Morton Work Phone: 9(005)525-641971 [place] [address] 07-26-2023 12:10-0500 SaO2% (BldA) [Mass fraction] 90 % Dr. Daija Morton Work Phone: 0(549)114-583851 [place] [address] 07-26-2023 12:10-0500 Systolic blood pressure 107 mm[Hg] Dr. Daija Morton Work Phone: 4(663)414-936171 [place] [address] 07-26-2023 08:38-0500 Body temperature 97.8 [degF] Dr. Daija Morton Work Phone: 5(241)564-533471 [place] [address] 07-26-2023 06:59-0500 Inhaled oxygen flow rate 2 L/min Dr. Daija Morton Work Phone: 7(798)856-827371 [place] [address] 07-25-2023 16:00-0500 Body weight 51.[address] Daija Morton Work Phone: 2(158)488-192171 [place] [address] 07-24-2023 21:55-0500 Body mass index (BMI) [Ratio] 17.4 kg/m2 Dr. Daija Morton Work Phone: 4(669)507-809271 [place] [address] 07-24-2023 21:13-0500 Diastolic blood pressure 89 mm[Hg] Dr. Daija Morton Work Phone: 5(476)931-915871 [place] [address] 07-24-2023 21:13-0500 Heart rate 65 /min Dr. Daija Morton Work Phone: 7(827)991-012471 [place] [address] 07-24-2023 21:13-0500 Respiratory rate 16 /min Dr. Daija Morton Work Phone: 7(141)989-129971 [place] [address] 07-24-2023 21:13-0500 SaO2% (BldA) [Mass fraction] 91 % Dr. Daija Morton Work Phone: 5(235)424-913571 [place] [address] 07-24-2023 21:13-0500 Systolic blood pressure 210 mm[Hg] Dr. Daija Morton Work Phone: 9(805)266-186271 [place] [address] 07-24-2023 17:27-0500 Body mass index (BMI) [Ratio] 22.8 kg/m2 Dr. Daija Morton Work Phone: 2(739)967-873171 [place] [address] 07-24-2023 17:27-0500 Body weight [address] Daija Morton Work Phone: 1(327)914-806751 [place] [address] 07-24-2023 16:44-0500 Body height 172.[address] Daija Morton Work Phone: 1(431)648-588671 [place] [address] 07-24-2023 16:44-0500 Body temperature 96.7 [degF] Dr. Daija Morton Work Phone: 5(460)115-811971 [place] [address] 04-04-2023 11:37-0400 Diastolic blood pressure 79 mm[Hg] Dr. Daija Morton Work Phone: 9(286)423-539771 [place] [address] 04-04-2023 11:37-0400 Heart rate 44 /min Dr. Daija Morton Work Phone: 8(188)954-103371 [place] [address] 04-04-2023 11:37-0400 Systolic blood pressure 188 mm[Hg] Dr. Daija Morton Work Phone: 5(883)458-503371 [place] [address] 04-04-2023 10:02-0400 Body temperature 97.6 [degF] Dr. Daija Morton Work Phone: 6(944)067-032271 [place] [address] 04-04-2023 10:02-0400 Respiratory rate 18 /min Dr. Daija Morton Work Phone: 5(275)259-096071 [place] [address] 04-04-2023 10:02-0400 SaO2% (BldA) [Mass fraction] 92 % Dr. Daija Morton Work Phone: 1(227)757-455571 [place] [address] 04-03-2023 15:53-0400 Inhaled oxygen flow rate 2 L/min Dr. Daija Morton Work Phone: 1(906)018-983171 [place] [address] 03-31-2023 14:20-0400 Body mass index (BMI) [Ratio] 20.5 kg/m2 Dr. Daija Morton Work Phone: 8(137)744-755771 [place] [address] 03-31-2023 14:20-0400 Body weight [address] Daija Morton Work Phone: 4(987)684-291271 [place] [address] 03-31-2023 09:57-0400 Body height 175.[address] Daija Morton Work Phone: 3(616)621-664371 [place] [address] 03-30-2023 20:26-0400 Body temperature 96.7 [degF] Dr. Daija Morton Work Phone: 3(621)680-040071 [place] [address] 03-30-2023 20:26-0400 Diastolic blood pressure 78 mm[Hg] Dr. Daija Morton Work Phone: 0(640)413-891771 [place] [address] 03-30-2023 20:26-0400 Heart rate 71 /min Dr. Daija Morton Work Phone: 4(548)873-001471 [place] [address] 03-30-2023 20:26-0400 Respiratory rate 18 /min Dr. Daija Morton Work Phone: 0(033)467-392371 [place] [address] 03-30-2023 20:26-0400 SaO2% (BldA) [Mass fraction] 97 % Dr. Daija Morton Work Phone: 6(194)875-973071 [place] [address] 03-30-2023 20:26-0400 Systolic blood pressure 181 mm[Hg] Dr. Daija Morton Work Phone: 6(581)548-447071 [place] [address] 03-30-2023 14:10-0400 Body height 172.[address] Daija Morton Work Phone: 9(387)000-263171 [place] [address] 03-29-2023 19:22-0400 Body mass index (BMI) [Ratio] 21.9 kg/m2 Dr. Daija Morton Work Phone: 2(631)251-923771 [place] [address] 03-29-2023 19:22-0400 Body weight 65.[address] Daija Morton Work Phone: 9(022)516-846971 [place] [address] 03-29-2023 19:20-0400 Diastolic blood pressure 80 mm[Hg] Dr. Daija Morton Work Phone: 9(917)124-829171 [place] [address] 03-29-2023 19:20-0400 Heart rate 84 /min Dr. Daija Morton Work Phone: 1(819)145-302571 [place] [address] 03-29-2023 19:20-0400 Respiratory rate 18 /min Dr. Daija Morton Work Phone: 4(978)501-193571 [place] [address] 03-29-2023 19:20-0400 SaO2% (BldA) [Mass fraction] 92 % Dr. Daija Morton Work Phone: 2(939)781-242851 [place] [address] 03-29-2023 19:20-0400 Systolic blood pressure 195 mm[Hg] Dr. Daija Morton Work Phone: 2(246)755-534471 [place] [address] 03-29-2023 18:17-0400 Body temperature 97.6 [degF] Dr. Daija Morton Work Phone: 7(686)740-457871 [place] [address] 02-25-2023 19:41-0400 Diastolic blood pressure 87 mm[Hg] Dr. Daija Morton Work Phone: 1(948)021-886871 [place] [address] 02-25-2023 19:41-0400 Heart rate 67 /min Dr. Daija Morton Work Phone: 3(514)558-722471 [place] [address] 02-25-2023 19:41-0400 Respiratory rate 15 /min Dr. Daija Morton Work Phone: 7(073)089-254671 [place] [address] 02-25-2023 19:41-0400 SaO2% (BldA) [Mass fraction] 97 % Dr. Daija Morton Work Phone: 8(273)421-471871 [place] [address] 02-25-2023 19:41-0400 Systolic blood pressure 193 mm[Hg] Dr. Daija Morton Work Phone: 5(419)332-821471 [place] [address] 02-25-2023 19:37-0400 Body mass index (BMI) [Ratio] 22.4 kg/m2 Dr. Daija Morton Work Phone: 6(310)490-965151 [place] [address] 02-25-2023 19:37-0400 Body weight 67.[address] Daija Morton Work Phone: 3(053)800-749271 [place] [address] 02-25-2023 17:22-0400 Body temperature 97 [degF] Dr. Daija Morton Work Phone: 9(532)951-261371 [place] [address] 02-18-2023 01:56-0400 Diastolic blood pressure 113 mm[Hg] [facility] 02-18-2023 01:56-0400 Heart rate 88 /min [facility] 02-18-2023 01:56-0400 Respiratory rate 16 /min [facility] 02-18-2023 01:56-0400 Systolic blood pressure 157 mm[Hg] [facility] 02-18-2023 01:00-0400 SaO2% (BldA) [Mass fraction] 98 % [facility] 02-17-2023 21:35-0400 Body mass index (BMI) [Ratio] 21.5 kg/m2 [facility] 02-17-2023 21:35-0400 Body weight 66.13 kg [facility] 02-17-2023 21:32-0400 Body height 175.26 cm [facility] 02-17-2023 21:32-0400 Body temperature 96.4 [degF] [facility] 12-31-2022 15:16-0400 Body height 173 cm [facility] 12-31-2022 15:16-0400 Body mass index (BMI) [Ratio] 21.7 kg/m2 [facility] 12-31-2022 15:16-0400 Body temperature 96.6 [degF] [facility] 12-31-2022 15:16-0400 Body weight 65.2 kg [facility] 12-31-2022 15:16-0400 Diastolic blood pressure 66 mm[Hg] [facility] 12-31-2022 15:16-0400 Heart rate 75 /min [facility] 12-31-2022 15:16-0400 Respiratory rate 15 /min [facility] 12-31-2022 15:16-0400 SaO2% (BldA) [Mass fraction] 93 % [facility] 12-31-2022 15:16-0400 Systolic blood pressure 118 mm[Hg] [facility] 12-26-2022 14:04-0400 Diastolic blood pressure 90 mm[Hg] Ryan May MD Work Phone: [facility] 12-26-2022 14:04-0400 Heart rate 50 /min Ryan May MD Work Phone: [facility] 12-26-2022 14:04-0400 Systolic blood pressure 207 mm[Hg] Ryan May MD Work Phone: [facility] 10-22-2022 21:40-0400 Diastolic Blood Pressure Non-Invasive [address] PRIYANKA FRANCO MD [facility] 10-22-2022 21:40-0400 Heart rate 88 /min DR PRIYANKA FRANCO MD [facility] 10-22-2022 21:40-0400 Respiratory rate 20 /min DR PRIYANKA FRANCO MD [facility] 10-22-2022 21:40-0400 Systolic Blood Pressure Non-Invasive [address] PRIYANKA FRANCO MD [facility] 10-22-2022 19:59-[address] PRIYANKA FRANCO MD [facility] 10-22-2022 19:59-0400 Body temperature 98.6 [degF] DR PRIYANKA FRANCO MD [facility] 10-22-2022 19:59-0400 Diastolic Blood Pressure Non-Invasive [address] PRIYANKA FRANCO MD [facility] 10-22-2022 19:59-0400 Heart rate 97 /min DR PRIYANKA FRANCO MD [facility] 10-22-2022 19:59-0400 Respiratory rate 21 /min DR PRIYANKA FRANCO MD [facility] 10-22-2022 19:59-0400 Systolic Blood Pressure Non-Invasive [address] PRIYANKA FRANCO MD [facility] 10-21-2022 18:30-0400 Body height 172.72 cm [facility] 10-21-2022 18:30-0400 Body temperature 97.5 [degF] [facility] 10-21-2022 18:30-0400 Diastolic blood pressure 88 mm[Hg] [facility] 10-21-2022 18:30-0400 Heart rate 99 /min [facility] 10-21-2022 18:30-0400 Respiratory rate 16 /min [facility] 10-21-2022 18:30-0400 SaO2% (BldA) [Mass fraction] 96 % [facility] 10-21-2022 18:30-0400 Systolic blood pressure 168 mm[Hg] [facility] 08-27-2022 10:51-0500 Diastolic blood pressure 91 mm[Hg] Daija Morton MD Work Phone: [facility] 08-27-2022 10:51-0500 Heart rate 69 /min Daija Morton MD Work Phone: [facility] 08-27-2022 10:51-0500 Systolic blood pressure 212 mm[Hg] Daija Morton MD Work Phone: [facility] 08-27-2022 10:47-0500 Body temperature 97 [degF] Daija Morton MD Work Phone: [facility] 08-27-2022 10:47-0500 Body weight 71.22 kg Daija Morton MD Work Phone: [facility] 08-27-2022 10:47-0500 Respiratory rate 28 /min Daija Morton MD Work Phone: [facility] 08-27-2022 10:47-0500 SaO2% (BldA) [Mass fraction] 95 % Daija Morton MD Work Phone: [facility] 03-10-2022 10:10-0400 Diastolic blood pressure 90 mm[Hg] Anjel Older TRAILER DRIVER.[employer] H[employer] SMEARER Work Phone: [facility] 03-10-2022 10:10-0400 Heart rate 88 /min Anjel Older TRAILER DRIVER.[employer] H[employer] SMEARER Work Phone: [facility] 03-10-2022 10:10-0400 Respiratory rate 16 /min Anjel Older TRAILER DRIVER.[employer] H[employer] SMEARER Work Phone: [facility] 03-10-2022 10:10-0400 Systolic blood pressure 158 mm[Hg] Anjel Braga APRN.[employer] H[employer] SMEARER Work Phone: [facility] 03-08-2022 23:13-0400 Diastolic blood pressure 93 mm[Hg] Dr. Daija Morton Work Phone: [facility] Work Phone: 03-08-2022 23:13-0400 Heart rate 71 /min Dr. Daija Morton Work Phone: [facility] Work Phone: 03-08-2022 23:13-0400 Inhaled oxygen flow rate 3 L/min Dr. Daija Morton Work Phone: [facility] Work Phone: 03-08-2022 23:13-0400 Respiratory rate 16 /min Dr. Daija Morton Work Phone: [facility] Work Phone: 03-08-2022 23:13-0400 SaO2% (BldA) [Mass fraction] 96 % Dr. Daija Morton Work Phone: [facility] Work Phone: 03-08-2022 23:13-0400 Systolic blood pressure 178 mm[Hg] Dr. Daija Morton Work Phone: [facility] Work Phone: 03-08-2022 17:31-0400 Body height 172.[address] Daija Morton Work Phone: [facility] Work Phone: 03-08-2022 17:31-0400 Body mass index (BMI) [Ratio] 20.5 kg/m2 Dr. Daija Morton Work Phone: [facility] Work Phone: 03-08-2022 17:31-0400 Body temperature 97.6 [degF] Dr. Daija Morton Work Phone: [facility] Work Phone: 03-08-2022 17:31-0400 Body weight 61.[address] Daija Morton Work Phone: [facility] Work Phone: 03-07-2022 17:28-0400 Respiratory rate 18 /min Dr. Daija Morton Work Phone: [facility] Work Phone: 03-07-2022 15:23-0400 Body height 172.[address] Daija Morton Work Phone: [facility] Work Phone: 03-07-2022 15:23-0400 Body mass index (BMI) [Ratio] 20.5 kg/m2 Dr. Daija Morton Work Phone: [facility] Work Phone: 03-07-2022 15:23-0400 Body temperature 97.4 [degF] Dr. Daija Morton Work Phone: [facility] Work Phone: 03-07-2022 15:23-0400 Body weight 61.[address] Daija Morton Work Phone: [facility] Work Phone: 03-07-2022 15:23-0400 Diastolic blood pressure 88 mm[Hg] Dr. Daija Morton Work Phone: [facility] Work Phone: 03-07-2022 15:23-0400 Heart rate 84 /min Dr. Daija Morton Work Phone: [facility] Work Phone: 03-07-2022 15:23-0400 SaO2% (BldA) [Mass fraction] 93 % Dr. Daija Morton Work Phone: [facility] Work Phone: 03-07-2022 15:23-0400 Systolic blood pressure 193 mm[Hg] Dr. Daija Morton Work Phone: [facility] Work Phone: 03-02-2022 19:05-0400 Diastolic blood pressure 81 mm[Hg] Dr. Daija Morton Work Phone: [facility] Work Phone: 03-02-2022 19:05-0400 Heart rate 56 /min Dr. Daija Morton Work Phone: [facility] Work Phone: 03-02-2022 19:05-0400 Respiratory rate 18 /min Dr. Daija Morton Work Phone: [facility] Work Phone: 03-02-2022 19:05-0400 SaO2% (BldA) [Mass fraction] 92 % Dr. Daija Morton Work Phone: [facility] Work Phone: 03-02-2022 19:05-0400 Systolic blood pressure 209 mm[Hg] Dr. Daija Morton Work Phone: [facility] Work Phone: 03-02-2022 17:41-0400 Body temperature 97.5 [degF] Dr. Daija Morton Work Phone: [facility] Work Phone: 03-02-2022 15:10-0400 Body height 172.[address] Daija Morton Work Phone: [facility] Work Phone: 03-02-2022 15:10-0400 Body mass index (BMI) [Ratio] 23.5 kg/m2 Dr. Daija Morton Work Phone: [facility] Work Phone: 03-02-2022 15:10-0400 Body weight 70.[address] Daija Morton Work Phone: [facility] Work Phone: 01-31-2022 13:59-0400 Body height 172.7 cm Ryan May MD Work Phone: [facility] 01-31-2022 13:59-0400 Body weight 68.49 kg Ryan May MD Work Phone: [facility] 01-31-2022 13:59-0400 Diastolic blood pressure 99 mm[Hg] Ryan May MD Work Phone: [facility] 01-31-2022 13:59-0400 Systolic blood pressure 168 mm[Hg] Ryan May MD Work Phone: [facility] 01-28-2022 15:53-0400 Diastolic blood pressure 88 mm[Hg] Dr. Daija Morton Work Phone: [facility] Work Phone: 01-28-2022 15:53-0400 Heart rate 54 /min Dr. Daija Morton Work Phone: [facility] Work Phone: 01-28-2022 15:53-0400 Respiratory rate 20 /min Dr. Daija Morton Work Phone: [facility] Work Phone: 01-28-2022 15:53-0400 SaO2% (BldA) [Mass fraction] 97 % Dr. Daija Morton Work Phone: [facility] Work Phone: 01-28-2022 15:53-0400 Systolic blood pressure 200 mm[Hg] Dr. Daija Morton Work Phone: [facility] Work Phone: 01-28-2022 14:03-0400 Body height 172.[address] Daija Morton Work Phone: [facility] Work Phone: 01-28-2022 14:03-0400 Body mass index (BMI) [Ratio] 22.9 kg/m2 Dr. Daija Morton Work Phone: [facility] Work Phone: 01-28-2022 14:03-0400 Body temperature 96.8 [degF] Dr. Daija Morton Work Phone: [facility] Work Phone: 01-28-2022 14:03-0400 Body weight 68.[address] Daija Morton Work Phone: [facility] Work Phone: 01-28-2022 11:41-0400 Diastolic blood pressure 92 mm[Hg] Anjel Older TRAILER DRIVER.[employer]MA H[employer] SMEARER Work Phone: [facility] 01-28-2022 11:41-0400 Heart rate 56 /min Anjel Older TRAILER DRIVER.[employer]NAMA HAT SMEARER Work Phone: [facility] 01-28-2022 11:41-0400 Systolic blood pressure 200 mm[Hg] Anjel Older TRAILER DRIVER.[employer]NAMA HAT SMEARER Work Phone: [facility] 01-28-2022 10:57-0400 Body weight 68.49 kg Anjel Older TRAILER DRIVER.[employer]NAMA H[employer] SMEARER Work Phone: [facility] 01-28-2022 10:57-0400 Respiratory rate 16 /min Anjel Older TRAILER DRIVER.[employer]NA[employer] H[employer] SMEARER Work Phone: [facility] 01-20-2022 13:23-0400 Diastolic blood pressure 102 mm[Hg] Ye Coello MD Work Phone: [facility] 01-20-2022 13:23-0400 Heart rate 61 /min Ye Coello MD Work Phone: [facility] 01-20-2022 13:23-0400 SaO2% (BldA) [Mass fraction] 94 % Ye Coello MD Work Phone: [facility] 01-20-2022 13:23-0400 Systolic blood pressure 172 mm[Hg] Ye Coello MD Work Phone: [facility] 01-14-2022 10:26-0400 Body temperature 98.2 [degF] Harriett Albert TRAILER DRIVER.LASER SET UP OPERATOR Work Phone: [facility] 01-14-2022 10:26-0400 Body weight 69.67 kg Harriett Albert TRAILER DRIVER.LASER SET UP OPERATOR Work Phone: [facility] 01-14-2022 10:26-0400 Diastolic blood pressure 80 mm[Hg] Harriett Albert TRAILER DRIVER.LASER SET UP OPERATOR Work Phone: [facility] 01-14-2022 10:26-0400 Heart rate 78 /min Harriett Albert TRAILER DRIVER.LASER SET UP OPERATOR Work Phone: [facility] 01-14-2022 10:26-0400 Respiratory rate 16 /min Harriett Albert TRAILER DRIVER.LASER SET UP OPERATOR Work Phone: [facility] 01-14-2022 10:26-0400 SaO2% (BldA) [Mass fraction] 95 % Harriett Albert TRAILER DRIVER.LASER SET UP OPERATOR Work Phone: [facility] 01-14-2022 10:26-0400 Systolic blood pressure 186 mm[Hg] Harriett Albert TRAILER DRIVER.LASER SET UP OPERATOR Work Phone: [facility] 11-30-2021 15:02-0400 Heart rate 75 /min Dr. Daija Morton Work Phone: [facility] Work Phone: 11-30-2021 15:02-0400 Respiratory rate 17 /min Dr. Daija Morton Work Phone: [facility] Work Phone: 11-30-2021 13:57-0400 Body temperature 97.4 [degF] Dr. Daija Morton Work Phone: [facility] Work Phone: 11-30-2021 13:57-0400 Diastolic blood pressure 67 mm[Hg] Dr. Daija Morton Work Phone: [facility] Work Phone: 11-30-2021 13:57-0400 SaO2% (BldA) [Mass fraction] 93 % Dr. Daija Morton Work Phone: [facility] Work Phone: 11-30-2021 13:57-0400 Systolic blood pressure 161 mm[Hg] Dr. Daija Morton Work Phone: [facility] Work Phone: 11-30-2021 11:25-0400 Inhaled oxygen flow rate 3 L/min Dr. Daija Morton Work Phone: [facility] Work Phone: 11-29-2021 12:48-0400 Body height 172.[address] Daija Morton Work Phone: [facility] Work Phone: 11-29-2021 12:48-0400 Body weight 71.[address] Daija Morton Work Phone: [facility] Work Phone: 11-27-2021 05:25-0400 Body mass index (BMI) [Ratio] 24 kg/m2 Dr. Daija Morton Work Phone: [facility] Work Phone: 11-25-2021 21:36-0400 Body temperature 97.8 [degF] Dr. Daija Morton Work Phone: [facility] Work Phone: 11-25-2021 21:36-0400 Diastolic blood pressure 40 mm[Hg] Dr. Daija Morton Work Phone: [facility] Work Phone: 11-25-2021 21:36-0400 Heart rate 66 /min Dr. Daija Morton Work Phone: [facility] Work Phone: 11-25-2021 21:36-0400 Respiratory rate 16 /min Dr. Daija Morton Work Phone: [facility] Work Phone: 11-25-2021 21:36-0400 SaO2% (BldA) [Mass fraction] 96 % Dr. Daija Morton Work Phone: [facility] Work Phone: 11-25-2021 21:36-0400 Systolic blood pressure 133 mm[Hg] Dr. Daija Morton Work Phone: [facility] Work Phone: 11-25-2021 17:29-0400 Body height 172.[address] Daija Morton Work Phone: [facility] Work Phone: 11-25-2021 17:29-0400 Body mass index (BMI) [Ratio] 24.7 kg/m2 Dr. Daija Morton Work Phone: [facility] Work Phone: 11-25-2021 17:29-0400 Body weight 73.[address] Daija Morton Work Phone: [facility] Work Phone: 11-16-2021 14:37-0400 Body height 172.7 cm Estephania Pierre APRN.PANAMA HAT SMEARER Work Phone: [facility] 11-16-2021 14:37-0400 Body weight 71.67 kg Estephania Pierre APRN.PANAMA HAT SMEARER Work Phone: [facility] 11-16-2021 14:37-0400 Diastolic blood pressure 68 mm[Hg] Estephania Pierre APRN.PANAMA HAT SMEARER Work Phone: [facility] 11-16-2021 14:37-0400 Heart rate 64 /min Estephania Pierre APRN.PANAMA HAT SMEARER Work Phone: [facility] 11-16-2021 14:37-0400 SaO2% (BldA) [Mass fraction] 100 % Estephania Pierre APRN.PANAMA HAT SMEARER Work Phone: [facility] 11-16-2021 14:37-0400 Systolic blood pressure 162 mm[Hg] Estephania Pierre PANAMA HAT SMEARER Work Phone: [facility] 11-08-2021 12:50-0400 Heart rate 73 /min Respiratory Wstr Work Phone: [facility] 11-08-2021 12:50-0400 Respiratory rate 14 /min Respiratory Wstr Work Phone: [facility] 11-08-2021 12:50-0400 SaO2% (BldA) [Mass fraction] 97 % Respiratory Wstr Work Phone: [facility] 11-05-2021 11:22-0400 Body weight 70.31 kg Emilie Shania PA-C Work Phone: [facility] 11-05-2021 11:22-0400 Diastolic blood pressure 68 mm[Hg] Emilie Shania PA-C Work Phone: [facility] 11-05-2021 11:22-0400 Heart rate 71 /min Emilie Shania PA-C Work Phone: [facility] 11-05-2021 11:22-0400 Respiratory rate 20 /min Emilie Shania PA-C Work Phone: [facility] 11-05-2021 11:22-0400 SaO2% (BldA) [Mass fraction] 99 % Emilie Shania PA-C Work Phone: [facility] 11-05-2021 11:22-0400 Systolic blood pressure 140 mm[Hg] Emilie Shania PA-C Work Phone: [facility] 10-21-2021 11:30-0400 Diastolic blood pressure 65 mm[Hg] Mi Nurse Work Phone: [facility] 10-21-2021 11:30-0400 Heart rate 81 /min Mi Nurse Work Phone: [facility] 10-21-2021 11:30-0400 Systolic blood pressure 155 mm[Hg] Mi Nurse Work Phone: [facility] 10-13-2021 13:00-0400 Body height 172.7 cm Ye Coello MD Work Phone: [facility] 10-13-2021 13:00-0400 Body weight 71.67 kg Ye Coello MD Work Phone: [facility] 10-13-2021 13:00-0400 Diastolic blood pressure 93 mm[Hg] Ye Coello MD Work Phone: [facility] 10-13-2021 13:00-0400 Heart rate 66 /min Ye Coello MD Work Phone: [facility] 10-13-2021 13:00-0400 Systolic blood pressure 217 mm[Hg] Ye Coello MD Work Phone: [facility] 10-08-2021 17:14-0400 Diastolic blood pressure 62 mm[Hg] Dr. Daija Morton Work Phone: [facility] Work Phone: 10-08-2021 17:14-0400 Heart rate 58 /min Dr. Daija Morton Work Phone: [facility] Work Phone: 10-08-2021 17:14-0400 Respiratory rate 18 /min Dr. Daija Morton Work Phone: [facility] Work Phone: 10-08-2021 17:14-0400 SaO2% (BldA) [Mass fraction] 98 % Dr. Daija Morton Work Phone: [facility] Work Phone: 10-08-2021 17:14-0400 Systolic blood pressure 149 mm[Hg] Dr. Daija Morton Work Phone: [facility] Work Phone: 10-08-2021 14:12-0400 Body height 172.[address] Daija Morton Work Phone: [facility] Work Phone: 10-08-2021 14:12-0400 Body mass index (BMI) [Ratio] 24.7 kg/m2 Dr. Daiaj Morton Work Phone: [facility] Work Phone: 10-08-2021 14:12-0400 Body temperature 98.1 [degF] Dr. Daija Morton Work Phone: [facility] Work Phone: 10-08-2021 14:12-0400 Body weight 73.[address] Daija Morton Work Phone: [facility] Work Phone: 10-07-2021 11:17-0400 Body temperature 97.59 [degF] Anjel Older TRAILER DRIVER.PANAMA HAT SMEARER Work Phone: [facility] 10-07-2021 11:17-0400 Body weight 70.31 kg Anjel Older TRAILER DRIVER.PANAMA HAT SMEARER Work Phone: [facility] 10-07-2021 11:17-0400 Diastolic blood pressure 90 mm[Hg] Anjel Older TRAILER DRIVER.PANAMA HAT SMEARER Work Phone: [facility] 10-07-2021 11:17-0400 Heart rate 67 /min Anjel Older TRAILER DRIVER.PANAMA HAT SMEARER Work Phone: [facility] 10-07-2021 11:17-0400 Respiratory rate 12 /min Anjel Older TRAILER DRIVER.PANAMA HAT SMEARER Work Phone: [facility] 10-07-2021 11:17-0400 SaO2% (BldA) [Mass fraction] 96 % Anjel Older TRAILER DRIVER.PANAMA HAT SMEARER Work Phone: [facility] 10-07-2021 11:17-0400 Systolic blood pressure 178 mm[Hg] Anjel Older TRAILER DRIVER.PANAMA HAT SMEARER Work Phone: [facility] 09-29-2021 16:20-0400 Body temperature 98.24 [degF] DR PRIYANKA FRANCO MD [facility] 09-29-2021 16:20-0400 Diastolic blood pressure 91 mm[Hg] DR PRIYANKA FRANCO MD [facility] 09-29-2021 16:20-0400 Heart rate 80 /min DR PRIYANKA FRANCO MD [facility] 09-29-2021 16:20-0400 Respiratory rate 18 /min DR PRIYANKA FRANCO MD [facility] 09-29-2021 16:20-0400 Systolic blood pressure 189 mm[Hg] DR PRIYANKA FRANCO MD [facility] 09-17-2021 20:16-0400 Body temperature 97.3 [degF] Dr. Daija Morton Work Phone: [facility] Work Phone: 09-17-2021 20:16-0400 Diastolic blood pressure 80 mm[Hg] Dr. Daija Morton Work Phone: [facility] Work Phone: 09-17-2021 20:16-0400 Heart rate 85 /min Dr. Daija Morton Work Phone: [facility] Work Phone: 09-17-2021 20:16-0400 Respiratory rate 17 /min Dr. Daija Morton Work Phone: [facility] Work Phone: 09-17-2021 20:16-0400 SaO2% (BldA) [Mass fraction] 96 % Dr. Daija Morton Work Phone: [facility] Work Phone: 09-17-2021 20:16-0400 Systolic blood pressure 171 mm[Hg] Dr. Daija Morton Work Phone: [facility] Work Phone: 09-17-2021 16:56-0400 Body height 172.[address] Daija Morton Work Phone: [facility] Work Phone: 09-17-2021 16:56-0400 Body mass index (BMI) [Ratio] 23.7 kg/m2 Dr. Daija Morton Work Phone: [facility] Work Phone: 09-17-2021 16:56-0400 Body weight 70.[address] Daija Morton Work Phone: [facility] Work Phone: 09-15-2021 17:40-0400 Diastolic blood pressure 73 mm[Hg] Anjel Older TRAILER DRIVER.PANAMA HAT SMEARER Work Phone: [facility] 09-15-2021 17:40-0400 Systolic blood pressure 170 mm[Hg] Anjel Older TRAILER DRIVER.PANAMA HAT SMEARER Work Phone: [facility] 09-15-2021 16:57-0400 Body weight 71.22 kg Anjel Older TRAILER DRIVER.PANAMA HAT SMEARER Work Phone: [facility] 09-15-2021 16:57-0400 Heart rate 68 /min Anjel Older TRAILER DRIVER.PANAMA HAT SMEARER Work Phone: [facility] 09-15-2021 16:57-0400 Respiratory rate 16 /min Anjel Older TRAILER DRIVER.PANAMA HAT SMEARER Work Phone: [facility] 09-15-2021 16:18-0400 Body height 172.7 cm Kaye Ortega MD Work Phone: [facility] 09-15-2021 16:18-0400 Body temperature 97.39 [degF] Kaye Ortega MD Work Phone: [facility] 09-15-2021 16:18-0400 Body weight 71.67 kg Kaye Ortega MD Work Phone: [facility] 03-30-2022 16:18-0400 Diastolic blood pressure 72 mm[Hg] Kaye Ortega MD Work Phone: [facility] 09-15-2021 16:18-0400 Heart rate 78 /min Kaye Ortega MD Work Phone: [facility] 09-15-2021 16:18-0400 SaO2% (BldA) [Mass fraction] 96 % Kaye Ortega MD Work Phone: [facility] 09-15-2021 16:18-0400 Systolic blood pressure 138 mm[Hg] Kaye Ortega MD Work Phone: [facility] 08-21-2021 09:30-0500 Body temperature 97.6 [degF] Dr. Daija Morton Work Phone: [facility] Work Phone: 08-21-2021 09:30-0500 Diastolic blood pressure 69 mm[Hg] Dr. Daija Morton Work Phone: [facility] Work Phone: 08-21-2021 09:30-0500 Heart rate 61 /min Dr. Daija Morton Work Phone: [facility] Work Phone: 08-21-2021 09:30-0500 Inhaled oxygen flow rate 3 L/min Dr. Daija Morton Work Phone: [facility] Work Phone: 08-21-2021 09:30-0500 Respiratory rate 18 /min Dr. Daija Morton Work Phone: [facility] Work Phone: 08-21-2021 09:30-0500 SaO2% (BldA) [Mass fraction] 98 % Dr. Daija Morton Work Phone: [facility] Work Phone: 08-21-2021 09:30-0500 Systolic blood pressure 183 mm[Hg] Dr. Daija Morton Work Phone: [facility] Work Phone: 08-21-2021 08:30-0500 Body temperature 97.6 [degF] Dr. Daija Morton Work Phone: [facility] Work Phone: 08-21-2021 08:30-0500 Diastolic blood pressure 69 mm[Hg] Dr. Daija Morton Work Phone: [facility] Work Phone: 08-21-2021 08:30-0500 Heart rate 61 /min Dr. Daija Morton Work Phone: [facility] Work Phone: 08-21-2021 08:30-0500 Respiratory rate 18 /min Dr. Daija Morton Work Phone: [facility] Work Phone: 08-21-2021 08:30-0500 SaO2% (BldA) [Mass fraction] 98 % Dr. Daija Morton Work Phone: [facility] Work Phone: 08-21-2021 08:30-0500 Systolic blood pressure 183 mm[Hg] Dr. Daija Morton Work Phone: [facility] Work Phone: 08-20-2021 06:18-0500 Body mass index (BMI) [Ratio] 23.7 kg/m2 Dr. Daija Morton Work Phone: [facility] Work Phone: 08-20-2021 06:18-0500 Body weight [address] Daija Morton Work Phone: [facility] Work Phone: 08-20-2021 05:18-0500 Body mass index (BMI) [Ratio] 23.7 kg/m2 Dr. Daija Morton Work Phone: [facility] Work Phone: 08-20-2021 05:18-0500 Body weight [address] Daija Morton Work Phone: [facility] Work Phone: 08-12-2021 03:26-0500 Diastolic blood pressure 89 mm[Hg] Dr. Daija Morton Work Phone: [facility] Work Phone: 08-12-2021 03:26-0500 Heart rate 70 /min Dr. Daija Morton Work Phone: [facility] Work Phone: 08-12-2021 03:26-0500 Respiratory rate 18 /min Dr. Daija Morton Work Phone: [facility] Work Phone: 08-12-2021 03:26-0500 SaO2% (BldA) [Mass fraction] 93 % Dr. Daija Morton Work Phone: [facility] Work Phone: 08-12-2021 03:26-0500 Systolic blood pressure 211 mm[Hg] Dr. Daija Morton Work Phone: [facility] Work Phone: 08-11-2021 23:32-0500 Body mass index (BMI) [Ratio] 24.8 kg/m2 Dr. Daija Morton Work Phone: [facility] Work Phone: 08-11-2021 23:32-0500 Body temperature 97.5 [degF] Dr. Daija Morton Work Phone: [facility] Work Phone: 08-11-2021 23:32-0500 Body weight 74.[address] Daija Morton Work Phone: [facility] Work Phone: 06-12-2021 15:55-0500 Diastolic blood pressure 81 mm[Hg] Dr. aDija Morton Work Phone: [facility] Work Phone: 06-12-2021 15:55-0500 Heart rate 61 /min Dr. Daija Morton Work Phone: [facility] Work Phone: 06-12-2021 15:55-0500 Systolic blood pressure 182 mm[Hg] Dr. Daija Morton Work Phone: [facility] Work Phone: 06-12-2021 15:15-0500 Body mass index (BMI) [Ratio] 24.6 kg/m2 Dr. Daija Morton Work Phone: [facility] Work Phone: 06-12-2021 15:15-0500 Body temperature 96.8 [degF] Dr. Daija Morton Work Phone: [facility] Work Phone: 06-12-2021 15:15-0500 Body weight 73.[address] Daija Morton Work Phone: [facility] Work Phone: 06-12-2021 15:15-0500 Respiratory rate 18 /min Dr. Daija Morton Work Phone: [facility] Work Phone: 06-12-2021 15:15-0500 SaO2% (BldA) [Mass fraction] 96 % Dr. Daija Morton Work Phone: [facility] Work Phone: 06-04-2021 23:37-0500 Respiratory rate 18 /min Dr. Daija Morton Work Phone: [facility] Work Phone: 06-04-2021 22:01-0500 Body mass index (BMI) [Ratio] 23.6 kg/m2 Dr. Daija Morton Work Phone: [facility] Work Phone: 06-04-2021 22:01-0500 Body temperature 97.1 [degF] Dr. Daija Morton Work Phone: [facility] Work Phone: 06-04-2021 22:01-0500 Body weight 70.[address] Daija Morton Work Phone: [facility] Work Phone: 06-04-2021 22:01-0500 Diastolic blood pressure 99 mm[Hg] Dr. Daija Morton Work Phone: [facility] Work Phone: 06-04-2021 22:01-0500 Heart rate 87 /min Dr. Daija Morton Work Phone: [facility] Work Phone: 06-04-2021 22:01-0500 SaO2% (BldA) [Mass fraction] 97 % Dr. Daija Morton Work Phone: [facility] Work Phone: 06-04-2021 22:01-0500 Systolic blood pressure 202 mm[Hg] Dr. Daija Morton Work Phone: [facility] Work Phone: Encounters Encounter Date Encounter Type Care Provider Facility Start: 03-11-2025 ambulatory Efewongbe Oleghe Facili ty:[facility] Start: 03-04-2025 ambulatory Efewongbe Oleghe Facili ty:[facility] Start: 02-25-2025 ambulatory Efewongbe Oleghe Facili ty:[facility] Start: 02-18-2025 ambulatory Efewongbe Oleghe Facili ty:[facility] Start: 02-18-2025 Lorraine Johns Start: 02-11-2025 ambulatory Efewongbe Oleghe Facili ty:[facility] Start: 02-11-2025 Lorraine Johns Start: 02-09-2025 ambulatory Efewongbe Oleghe Facili ty:[facility] Start: 02-09-2025 Lorraine Johns Start: 02-04-2025 End: 02-04-[address] Daija Morton MD Work Phone: -[facility] Start: 02-04-2025 End: 02-04-2025 Josefa Doss IT SECURITY CONSULTANT-C -[facility] Work Phone: Start: 02-03-2025 ambulatory Lorraine Mena OLS Fa cility:[facility] Start: 02-03-2025 Lorraine Johns Start: 01-27-2025 ambulatory Efewongthao Olebandare Facili ty:[facility] Start: 01-27-2025 Lorraine Johns Start: 01-23-2025 End: 01-23-2025 Hannah Busch IT SECURITY CONSULTANT-C -[facility] Work Phone: Start: 01-23-2025 End: 01-23-[address] Daija Morton MD Work Phone: -[facility] Start: 01-21-2025 End: 01-21-2025 Mackenzie SALDIVAR -[facility] Work Phone: Start: 01-21-2025 End: 01-21-[address] Daija Morton MD Work Phone: -[facility] Start: 01-20-2025 ambulatory Efewongthao Oleghe Facili ty:[facility] Start: 01-20-2025 Lorraine Johns Start: 01-17-2025 End: 01-17-2025 Refill Daija Morton MD Work Phone: [facility] Comment on above: Refill Request Start: 01-13-2025 ambulatory Efewongthao Oleghe Facili ty:[facility] Start: 01-13-2025 Lorraine Johns Start: 01-09-2025 End: 01-09-[address] Daija Morton MD Work Phone: -[facility] Start: 01-09-2025 End: 01-09-2025 Josefa LEEC -[facility] Work Phone: Start: 01-08-2025 Dr. Ryan zazueta DO -[facility] Work Phone: Start: 01-07-2025 Dr. Ryan zazueta DO [facility] Work Phone: Start: 01-07-2025 Paulino Friend DO -[facility] Start: 01-06-2025 ambulatory Efewongbe Oleghe Facili ty:[facility] Start: 01-06-2025 Paulino Friend DO -[facility] Start: 01-05-2025 End: 01-05-2025 ambulatory Efewongbe Oleghe Facility:[facility] Start: 01-05-2025 End: 01-05-2025 Dr. Geronimo Downey MD -[facility] Work Phone: Start: 01-05-2025 Paulino Friend DO -[facility] Start: 01-05-2025 End: 01-08-2025 ambulatory Efewongbe Oleghe Facility:[facility] Start: 01-05-2025 End: 01-08-2025 Evaluation and management of inpatient Dr. Daija Morton MD Work Phone: -Progressive Care Unit Start: 01-05-2025 End: 01-08-2025 Dr. Frankie Galindo MD -[facility] Work Phone: Start: 01-03-2025 End: 01-03-2025 Dr. Daija Morton MD Work Phone: -Emergency Department Work Phone: Start: 01-03-2025 End: 01-03-2025 Emergency department patient visit Dr. Daija Morton MD Work Phone: -Emergency Department Start: 12-31-2024 End: 12-31-[address] Daija Morton MD Work Phone: [facility] Start: 12-31-2024 End: 12-31-2024 Dr. Lorraine Mena MD -[facility] Work Phone: Start: 12-31-2024 ambulatory [facility] Facility:[facility] Start: 12-31-2024 Lorraine Jeffries Daisha Johns Start: 12-30-2024 ambulatory [facility] Facility:[facility] Start: 12-30-2024 Lorraine Jeffries Daisha Johns Start: 12-27-2024 End: 12-27-[address] Daija Morton MD Work Phone: [facility] Start: 12-27-2024 End: 12-27-2024 Josefa Doss NP-C -[facility] Work Phone: Start: 12-26-2024 End: 12-26-2024 Follow-up encounter Anjel Braga APRN.CNP Work Phone: [facility] Start: 12-26-2024 Dr. Shilpa edwards MD -[facility] Work Phone: Start: 12-25-2024 Dr. Shilpa edwards MD -[facility] Work Phone: Start: 12-24-2024 Paulino Henderson [facility] Start: 12-24-2024 Dr. Shilpa edwards MD -[facility] Work Phone: Start: 12-23-2024 Paulino [facility] Start: 12-23-2024 ambulatory Lisha Talamantes Facility:[facility] Start: 12-23-2024 Dr. Raul Jensen MD -[facility] Start: 12-23-2024 Dr. Shilpa edwards MD -[facility] Work Phone: Start: 12-22-2024 Dr. Lisha Talamantes DO -[facility] Work Phone: Start: 12-21-2024 Dr. Lisha Talamantes DO -[facility] Work Phone: Start: 12-20-2024 Dr. Lisha Talamantes DO -[facility] Work Phone: Start: 12-19-2024 Dr. Lisha Talamantes DO -[facility] Work Phone: Start: 12-18-2024 ambulatory Lisha Talamantes Facility:[facility] Start: 12-18-2024 End: 12-26-2024 Evaluation and management of inpatient Dr. Daija Morton MD Work Phone: -Progressive Care Unit Start: 12-18-2024 End: 12-26-2024 Dr. Shilpa Contreras MD -[facility] Work Phone: Start: 12-18-2024 ambulatory Daija Morton Facility:[facility] Start: 12-18-2024 Dr. Milton Guajardo MD -[facility] Start: 12-17-[address] Germain Morton MD Work Phone: -Pro[facility] Care Unit Start: 12-17-2024 Dr. Roman Patel DO -Pro[facility] Care Unit Work Phone: Start: 12-17-2024 End: 12-20-2024 ambulatory Daija Morton MD Work Phone: Internal Medicine [place] [phone] Start: 12-17-2024 End: 12-24-2024 Telephone encounter Daija Morton MD Work Phone: [facility] Comment on above: Patient Update Start: 12-16-2024 End: 12-17-2024 Refill Daija Morton MD Work Phone: [facility] Comment on above: Refill Request SOB (shortness [...] [facility] Comment on above: Refill Request Orders [facility] requesting r ecords Start: 12-12-2024 End: 12-12-2024 Subsequent hospital visit by physician [facility] Work Phone: Radiology Comment on above: Wheezing [R06.2] Start: 12-12-2024 End: 12-12-2024 ambulatory [facility] Facility:[facility] Start: 12-12-2024 End: 12-12-2024 Office outpatient visit 25 minutes Anjel Braga APRN.CNP Work Phone: [facility] Comment on above: Other emphysema (HCC ) (Primary Dx); Smoker; Wheezing; Lower abdominal tenderness; Loose stools; On home oxygen therapy; Primary hypertension; Left leg pain; Falls; Weakness Start: 12-12-2024 End: 12-12-2024 ambulatory ANJEL BRAGA Facility:[facility] Start: 12-09-2024 End: 12-09-2024 Telephone encounter Daija Morton MD Work Phone: [facility] Comment on above: Home Care Management ; Patient Update Start: 12-06-2024 End: 12-06-2024 Telephone encounter Daija Morton MD Work Phone: [facility] Comment on above: [facility] Kieshae rs update Start: 12-03-2024 End: 12-04-2024 Telephone encounter Daija Morton MD Work Phone: [facility] Comment on above: Home Health Orders Start: 12-02-2024 ambulatory [facility] Facility:[facility] Start: 12-02-[address] Carla Prather MD -[facility] Start: 12-02-2024 Dr. Carla Prather MD [facility] Start: 11-05-2024 End: 11-05-[address] Daija Morton MD Work Phone: [facility] Work Phone: Start: 11-05-2024 End: 11-05-[address] Carla Prather MD -[facility] Start: 11-05-2024 End: 11-05-2024 Dr. Carla Prather MD [facility] Start: 11-05-2024 End: 11-05-2024 ambulatory [facility] Facility:[facility] Start: 10-16-2024 [facility] Start: 10-16-[address] Carla Prather MD [facility] Start: 10-16-2024 Dr. Carla Prather MD [facility] Start: 09-02-2024 Non-patient / Non-visit Dr. Brody Maynard MD -[facility] Work Phone: Start: 09-02-2024 Dr. Brody Maynard MD -[facility] Work Phone: Start: 09-01-2024 Non-patient / Non-visit Dr. Celia rapp MD -[facility] Work Phone: Start: 09-01-2024 Dr. Celia Toribio MD -Located within [facility] In[facility] Work Phone: Start: 08-31-2024 Non-patient / Non-visit Dr. Celia rapp MD -[facility] Work Phone: Start: 08-31[facility]2024 [facility]: Start: 08-30-2024 Non-patient / Non-visit Dr. Celia rapp MD [facility] Work Phone: Start: 08-30-2024 Dr. Celia JeffriesLocated within [facility] Work Phone: Start: 08-29-2024 Non-patient / Non-[facility] Start: 08-29-2024 Dr. Celia Toribio MD [facility] Inpatient Physicians Work Phone: Start: 08-28-2024 Non-patient / Non-visit Dr. Celia rapp MD [facility] Work Phone: Start: 08-28-2024 Dr. Celia JeffriesLocated within [facility] Work Phone: Start: 08-27-2024 ambulatory Celia Toribio Facility:[facility] Start: 08-27-2024 End: 09-02-2024 Evaluation and management of inpatient Dr. Brody Maynard MD -[facility] 3 Work Phone: Start: 08-27-2024 End: 09-02-2024 Dr. Brody Maynard MD -[facility] 3 Work Phone: Start: 08-27-2024 Non-patient / Non-visit Dr. Celia rapp MD [facility] Work Phone: Start: 08-27-2024 Dr. Celia Toribio MD [facility] In[facility] Work Phone: Start: 08-26-2024 Non-patient / Non-visit Dr. Celia Nam In[facility] Work Phone: Start: 08-26-2024 Dr. Celia Toribio MD [facility] Work Phone: Start: 08-25-2024 Non-patient / Non-visit Dr. Lisha Talamantes DO [facility] Inpatient [facility]icians Work Phone: Start: 08-25-2024 Dr. Lisha Talamantes DO [facility] Work Phone: Start: 08-25-2024 ambulatory Lisha Talamantes Facility:[facility] Start: 08-25-2024 Evaluation and management of inpatient Dr. Lisha Talamantes DO -[facility] 3 Work Phone: Start: 08-25-[address] Germain Morton MD Work Phone: [facility] Work Phone: Start: 07-15-2024 ambulatory [facility] Facility:[facility] Start: 07-15-[address] Carla Prather MD -[facility] Start: 05-17-2024 End: 05-17-2024 Telephone encounter Daija Morton MD Work Phone: [facility] Comment on above: Patient Update Start: 04-29-2024 End: 05-14-2024 Telephone encounter Daija Morton MD Work Phone: [facility] Comment on above: Patient Update Start: 04-12-2024 ambulatory [facility] Facility:[facility] Start: 04-08-2024 ambulatory [facility] Start: 04-07-2024 [facility] Start: 04-07-2024 End: 04-10-2024 Evaluation and management of inpatient Raul Joeri Facility:[facility] Start: 04-06-2024 ambulatory Kathiluis Rogersam Facility :[facility] Start: 04-04-2024 End: 04-24-2024 Telephone encounter Daija Morton MD Work Phone: [facility] Comment on above: Patient Update Start: 03-31-2024 End: 04-04-2024 Telephone encounter Sera SALDIVAR Work Phone: [facility] Comment on above: Results Start: 03-25-2024 End: 03-25-2024 Telephone encounter Sera SALDIVAR Work Phone: [facility] Comment on above: Results Start: 03-23-2024 End: 03-23-2024 ambulatory DAIJA MORTON Facility:[facility] Start: 03-23-2024 End: 03-23-2024 Patient encounter procedure Pura RoweNeshaTitus YANGSALLY Work Phone: [facility] Comment on above: Uncontrolled hyperte nsion (Primary Dx); Dysuria; Urinary tract infection without hematuria, site unspecified Start: 03-12-2024 End: 03-12-2024 Refill Daija Morton MD Work Phone: [facility] Comment on above: Refill Request Start: 01-23-2024 Refill Daija Carson Work Phone: [facility] Comment on above: Refill Request Start: 01-02-2024 Orders Only Ryan May MD [...] Daija pressley MD Work Phone: [facility] Comment on above: Patient Update Start: 11-21-2023 [...] Rebekah Luu PA-C Work Phone: [facility] Comment on above: Orders (Follow skill ed nursing orders from [facility]) Start: 11-15-2023 Telephone encounter Rebekah Luu PA-C Work Phone: [facility] Start: 11-09-2023 Telephone encounter Daija pressley MD Work Phone: [facility] Comment on above: Orders Start: 10-19-2023 Telephone encounter Daija pressley MD Work Phone: [facility] Comment on above: FYI-No Action Needed Start: 08-21-2023 ambulatory Lisa Farley MA [facility] Comment on above: Population Health Na vigation Outreach ([employer] care gaps) Start: 08-04-2023 Refill Daija Carson Work Phone: [facility] Comment on above: Refill Request Start: 08-02-2023 Dr. Daija pressley Work Phone: [facility] In[facility]icians Work Phone: Start: 08-01-2023 Dr. Daija pressley Work Phone: [facility] Work Phone: Start: 07-31-2023 Dr. Daija pressley Work Phone: [facility] Work Phone: Start: 07-30-2023 End: 08-02-2023 Evaluation and management of inpatient Dr. Daija Morton Work Phone: [facility] Work Phone: Start: 07-30-2023 End: 08-02-2023 Dr. Daija Morton Work Phone: [facility]-Intensive Care Unit Work Phone: Start: 07-27-2023 Dr. Daija pressley Work Phone: [facility] Start: 07-26-2023 Dr. Daija pressley Work Phone: [facility] Work Phone: Start: 07-25-2023 Dr. Daija pressley Work Phone: [facility] Work Phone: Start: 07-24-2023 Evaluation and management of inpatient Dr. Daija Morton Work Phone: [facility] Surgical 3 Work Phone: Start: 07-24-2023 Non-patient / Non-visit Dr. Vernon Morton Work Phone: [facility] Work Phone: Start: 07-24-2023 End: 07-26-2023 Dr. Daija Morton Work Phone: [facility] 3 Work Phone: Start: 07-19-2023 Telephone encounter Daija pressley MD Work Phone: [facility] Comment on above: Patient Update Start: 07-10-2023 End: 07-15-[address] DAIJA MORTON MD Facility:A Start: 06-14-2023 End: 06-14-[address] Daija Morton Work Phone: [facility] Work Phone: Start: 06-14-2023 End: 06-14-[address] Daija Morton Work Phone: [facility]-Laboratory, Specimen Work Phone: Start: 06-14-2023 End: 06-14-2023 Dr[facility] Work Phone: Start: 05-30-2023 Refill Daija Carson Work Phone: [facility] Comment on above: Refill Request Start: 05-19-2023 Telephone encounter Daija pressley MD Work Phone: [facility] Comment on above: Need verbal for [place] [facility] Start: 05-19-2023 End: 05-19-[address] Daija Morton Work Phone: [facility] Work Phone: Start: 05-19-2023 End: 05-19-[address] Daija Morton Work Phone: [facility] Start: 05-19-2023 End: 05-19-2023 Dr. Daija Morton Work Phone: [facility] Start: 04-19-[address] Daija Morton Work Phone: [facility] Start: 04-19-2023 Dr. Daija pressley Work Phone: [facility] Start: 04-17-[address] Daija Morton Work Phone: [facility] Start: 04-17-2023 Dr. Daija pressley Work Phone: [facility] Start: 04-12-[address] Daija Morton Work Phone: [facility] Start: 04-12-2023 Dr. Daija pressley Work Phone: [facility] Start: 04-05-[address] Daija Morton Work Phone: [facility] Start: 04-05-2023 Dr. Daija pressley Work Phone: [facility] Start: 04-04-2023 Non-patient / Non-visit Dr. Vernon Morton Work Phone: [facility] Work Phone: Start: 04-04-2023 Dr. Daija pressley Work Phone: [facility] Work Phone: Start: 04-03-2023 Non-patient / Non-visit Dr. Vernon Morton Work Phone: [facility] Work Phone: Start: 04-03-2023 Dr. Daija pressley Work Phone: [facility] Work Phone: Start: 04-02-2023 Non-patient / Non-visit Dr. Vernon Morton Work Phone: [facility] Work Phone: Start: 04-02-2023 Dr. Daija pressley Work Phone: [facility] Work Phone: Start: 04-01-2023 Non-patient / Non-visit Dr. Vernon Morton Work Phone: [facility] Work Phone: Start: 03-31-2023 Telephone encounter Daija pressley MD Work Phone: [address] [place] [id number] Comment on above: Erroneous encounter- disregard Start: 03-31-2023 Non-patient / Non-visit Dr. Vernon Morton Work Phone: [facility] Work Phone: Start: 03-30-2023 Non-patient / Non-visit Dr. Vernon Morton Work Phone: [facility] Work Phone: Start: 03-30-2023 End: 04-04-2023 Evaluation and management of inpatient Dr. Daija Morton Work Phone: [facility] 3 Work Phone: Start: 03-30-2023 End: 04-04-2023 Dr. Daija Morton Work Phone: [facility] Surgical 3 Work Phone: Start: 03-29-2023 End: 03-29-2023 Emergency department patient [facility] Da[facility] Start: 02-25-2023 End: 02-25-2023 Emergency department patient visit Dr. Daija M[facility]ton [facility] Start: 02-24-2023 Refill Anjel Braga APRN, .CNP Work Phone: [facility] Comment on above: Refill Request Start: 02-17-2023 End: 02-18-2023 [facility] Start: 01-27-2023 Refill Daija Carson Work Phone: [facility] Comment on above: Refill Request Start: 12-31-2022 End: 12-31-2022 [facility] Start: 12-26-2022 End: 12-26-2022 Patient encounter procedure Ryan May MD Work Phone: Vascular Surgery Comment on above: Peripheral arterial disease (HCC) (Primary Dx) Peripheral arterial disease (HCC) (Primary Dx); PVD (peripheral vascular disease) (HCC) Start: 10-22-2022 End: 10-23-2022 Emergency department patient visit DR DAIJA MORTON MD Facility:[facility] Start: 10-22-2022 End: 10-22-2022 Emergency department patient visit DR PRIYANKA FRANCO MD [facility] Start: 10-21-2022 End: 10-21-2022 Emergency department patient visit [facility]Emergency Department Start: 09-30-2022 Refill Daija Carson Work Phone: [facility] Comment on above: Refill Request Start: 09-06-2022 Telephone encounter Anjel Braga APRN.CNP Work Phone: [facility] Comment on above: patient problem Start: 09-01-2022 Refill Daija Carson Work Phone: [facility] Comment on above: Refill Request; HHC Request Start: 08-29-2022 Refill Daija Carson Work Phone: Internal [facility] Comment on above: Refill Request Start: 08-27-2022 End: 08-27-2022 Patient encounter procedure Daija Morton MD Work Phone: [facility] Comment on above: Ambulatory dysfuncti on (Primary Dx); Closed fracture of multiple ribs of left side, sequela; Paroxysmal atrial fibrillation (HCC); Anemia, unspecified type; Essential hypertension; PVD (peripheral vascular disease) (HCC); Anticoagulation goal of INR 2 to 3; Uncontrolled hypertension; Declining mobility Start: 08-25-2022 Telephone encounter Daija pressley MD Work Phone: Internal [facility] Comment on above: Appointment Refill Request; [place] ent Update Start: 08-11-2022 End: 08-11-2022 Departed Referred [facility] Start: 08-02-2022 Telephone encounter Ryan May MD Work Phone: Vascular Surgery Comment on above: Appointment Start: 07-12-2022 End: 07-12-2022 ambulatory [facility] Work Phone: Start: 07-12-2022 End: 07-12-2022 Departed Referred [facility] Start: 06-14-2022 End: 06-14-2022 Departed Referred [facility] Start: 06-14-2022 Registered Referred [facility] Start: 05-13-2022 End: 05-13-2022 ambulatory [facility] Work Phone: Start: 05-13-2022 End: 05-13-2022 Departed Referred [facility] Start: 03-29-2022 ambulatory Daija Carson Work Phone: [facility] Start: 03-15-2022 Registered Referred [facility] 100/200 Start: 03-14-2022 Telephone encounter Daija pressley MD Work Phone: [facility] Comment on above: Medication Question Start: 03-11-2022 Telephone encounter Anjel Braga APRN.PANAMA HAT SMEARER Work Phone: [facility] Comment on above: admit to [facility] Start: 03-10-2022 Telephone encounter Daija pressley MD Work Phone: [facility] Comment on above: Appointment Start: 03-10-2022 End: 03-10-2022 Patient encounter procedure Anjel Braga APRN.PANAMA HAT SMEARER Work Phone: [facility] Comment on above: Fall, sequela (Prima ry Dx); Closed fracture of multiple ribs of left side, sequela; Pain Start: 03-09-2022 Telephone encounter Daija pressley MD Work Phone: [facility] Comment on above: [facility] orders needed t [facility] Start: 03-08-2022 End: 03-08-2022 Emergency department patient visit Dr. Daija Morton Work Phone: [facility]-Emergency Department Start: 03-07-2022 End: 03-07-2022 Emergency department patient visit Dr. Daija Morton Work Phone: [facility]-Emergency Department Start: 03-02-2022 End: 03-02-2022 Emergency department patient visit Dr. Daija Morton Work Phone: [facility]-Emergency Department Start: 03-02-2022 ambulatory Daija Carson Work Phone: [facility] Comment on above: Syncope Start: 03-02-2022 Telephone encounter Daija pressley MD Work Phone: Internal [facility] Comment on above: Erroneous encounter- disregard Start: 02-23-2022 Telephone encounter Daija pressley MD Work Phone: [facility] Comment on above: Orders Start: 02-22-2022 Refill Daija Carson Work Phone: [facility] Comment on above: Refill Request Start: 02-01-2022 Telephone encounter Daija pressley MD Work Phone: [facility] Comment on above: Patient Question Start: 01-31-2022 End: 01-31-2022 Patient encounter procedure Ryan May MD Work Phone: Vascular Surgery Comment on above: s/p left femoral end arterectomy/aortoiliac stenting 10/08/2019 (Primary Dx); PVD (peripheral vascular disease) (HCC); Smoker PVD (peripheral vasc ular disease) (HCC) (Primary Dx) Start: 01-28-2022 End: 01-28-2022 Emergency department patient visit Dr. Daija Morton Work Phone: [facility]-Emergency Department Start: 01-28-2022 End: 01-28-2022 Patient encounter procedure Anjel Braga APRN.PANAMA HAT SMEARER Work Phone: [facility] Comment on above: Essential hypertensi on (Primary Dx); Chest pain, unspecified type; Acute nonintractable headache, unspecified headache type; GI bleeding; Anticoagulation goal of INR 2 to 3 Start: 01-20-2022 End: 01-20-2022 Patient encounter procedure Ye Coello MD Work Phone: [facility] Comment on above: Tobacco abuse (Prima ry Dx); Acute cholecystitis with chronic cholecystitis; Gallbladder perforation; RUQ abdominal pain; Abnormal ultrasound of gallbladder Start: 01-14-2022 Telephone encounter Harriett armendariz APRN.LASER SET UP OPERATOR Work Phone: [facility] Comment on above: Results, Lab Start: 01-14-2022 End: 01-14-2022 Patient encounter procedure Harriett Albert TRAILER DRIVER.LASER SET UP OPERATOR Work Phone: [facility] Comment on above: Acute blood loss ane won (Primary Dx); Angiodysplasia of colon with hemorrhage; COPD with chronic bronchitis (HCC) Start: 01-11-2022 Telephone encounter Harriett armendariz TRAILER DRIVER.LASER SET UP OPERATOR Work Phone: [facility] Comment on above: Appointment (01/14 ED F/U-need ED location to retrieve records) Start: 12-30-2021 End: 12-30-[address] Daija Morton Work Phone: [place] [phone] Start: 12-30-[address] Daija Morton Work Phone: [place] [phone] Start: 12-29-2021 End: 12-29-[address] Daija Morton Work Phone: [place] [phone] Start: 12-29-[address] Daija Morton Work Phone: [place] [phone] Start: 12-23-2021 End: 12-23-[address] Daija Morton Work Phone: [place] [phone] Start: 12-17-2021 End: 12-17-[address] Daija Morton Work Phone: [place] [phone] Start: 12-17-[address] Daija Morton Work Phone: [facility] 300 Start: 12-10-2021 End: 12-10-[address] Daija Morton Work Phone: [facility] 100/200 Start: 12-10-[address] Daija Morton Work Phone: [facility] 100/200 Start: 12-08-2021 End: 12-08-[address] Daija Morton Work Phone: [place] [phone] Start: 12-08-[address] Daija Morton Work Phone: [place] [phone] Start: 12-06-2021 End: 12-06-[address] Daija Morton Work Phone: [place] [phone] Start: 12-06-[address] Daija Morton Work Phone: [place] [phone] Start: 12-04-2021 End: 12-04-[address] Daija Morton Work Phone: [place] [phone] Start: 12-04-[address] Daija Morton Work Phone: [place] [phone] Start: 12-02-2021 Telephone encounter Daija pressley MD Work Phone: [facility] Comment on above: Patient Update; Medi cation Request Start: 12-01-2021 End: 12-01-[address] Daija Morton Work Phone: [place] [phone] Start: 11-30-2021 Telephone encounter Daija pressley MD Work Phone: [facility] Comment on above: Clinical Update Start: 11-30-2021 Non-patient / Non-visit Dr. Vernon Morton Work Phone: [facility] Inpatient Physicians Start: 11-29-2021 Non-patient / Non-visit Dr. Vernon Morton Work Phone: [facility] Inpatient Physicians Start: 11-28-2021 Non-patient / Non-visit Dr. Vernon Morton Work Phone: [facility] Inpatient Physicians Start: 11-27-2021 Non-patient / Non-visit Dr. Vernon Morton Work Phone: [facility] Inpatient Phys[facility] Start: 11-27-2021 Non-patient / Non-visit Dr. Vernon Morton Work Phone: [facility] Start: 11-26-2021 Telephone encounter Kaylen Danielle [facility] Comment on above: Anticoagulation Tele phone Fu Start: 11-26-2021 Non-patient / Non-visit Dr. Vernon Morton Work Phone: [facility] Start: 11-26-2021 Non-patient / Non-visit Dr. Vernon Morton Work Phone: [facility] Inpatient Physicians Start: 11-25-2021 Non-patient / Non-visit Dr. Vernon Morton Work Phone: [facility] Inpatient Physicians Start: 11-25-2021 End: 11-30-2021 Evaluation and management of inpatient Dr. Daija Morton Work Phone: [facility] Unit Start: 11-19-2021 Refill Daija Carson Work Phone: [facility] Comment on above: Refill Request Medication Request Start: 11-18-2021 Refill Anjel Braga APRN, .CNP Work Phone: [facility] Comment on above: Refill Request Anticoagulation Tele phone Fu Start: 11-17-2021 End: 11-17-2021 Telemedicine consultation with patient Anjel Older TRAILER DRIVER.PANAMA HAT SMEARER Work Phone: [facility] Start: 11-17-2021 End: 11-17-2021 ambulatory Tila Guerrero RN [facility] Comment on above: Urinary tract infect ion without hematuria, site unspecified (Primary Dx) Start: 11-17-2021 Patient encounter procedure Tila Guerrero RN NURSE POLE LIFT OPERATOR Comment on above: Appointment Start: 11-16-2021 End: 11-16-2021 Patient encounter procedure Estephania Pierre APRN.PANAMA HAT SMEARER Work Phone: Cardiology Comment on above: Preoperative cardiov ascular examination (Primary Dx); Paroxysmal atrial fibrillation (HCC); Coronary artery disease involving [place] coronary artery of [place] heart without angina pectoris; Primary hypertension; Mixed hyperlipidemia; PVD (peripheral vascular disease) (HCC); Smoker Start: 11-16-2021 End: 11-16-2021 Patient encounter status Estephania Pierre APRN.PANAMA HAT SMEARER Work Phone: Cardiology Start: 11-12-2021 Telephone encounter Anjel Braga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 [facility] Comment on above: Expected: 11/21/2023, Expires: Start: 11-21-2023 End: 11-21-2023 Patient encounter procedure [facility] Comment on above: hospital discharge/ long term fractur e of pelvic hospital discharge/ long term fracture of pelvic(See phone encounter) Start: 11-21-2023 End: 11-21-2023 Patient encounter procedure 11/21/2023 9:40 AM EDT Office Visit [facility] [address] [place] [address] Rebekah Luu PA-C [address] [place] [address] follow up assisted / copd [facility] Comment on above: follow up assisted / copd Start: 08-28-2023 ANNUAL PCP TEAM CHRONIC DISEASE VISIT ANNUAL PCP TEAM CHRONIC DISEASE VISIT [facility] Start: 08-02-2023 Patient discharge [facility] Start: 08-01-2023 Referral to occupational therapist [facility] Start: 08-01-2023 Referral to service [facility] Start: 07-31-2023 Speech therapy assessment [facility] Start: 07-31-2023 Oxygen therapy [facility] Start: 07-31-2023 Respiratory secretion precautions [facility] Start: 07-31-2023 Following clinical pathway protocol [facility] Start: 07-31-2023 Continuous pulse oximetry [facility] Start: 07-31-2023 Physiotherapy of chest [facility] Start: 07-31-2023 Hospital admission, emergency, from emergency room, medical nature [facility] Start: 07-31-2023 Inhalation therapy procedure [facility] Start: 07-30-2023 Dual pressure spontaneous ventilation support [facility] Start: 07-30-2023 Admission procedure [facility] Start: 07-30-2023 [facility] Start: 07-26-2023 Patient discharge [facility] Start: 07-25-2023 Referral to occupational therapist [facility] Start: 07-25-2023 Referral to service [facility] Start: 07-25-2023 Inhalation therapy procedure [facility] Start: 07-24-2023 Following clinical pathway protocol [facility] Start: 07-24-2023 Assessment of risk of venous thromboembolism [facility] Start: 07-24-2023 Insertion of catheter into peripheral vein [facility] Start: 07-24-2023 Oxygen therapy [facility] Start: 07-24-2023 Providing care according to standard [facility] Start: 07-24-2023 Referral to service [facility] Start: 07-24-2023 [facility] Start: 07-24-2023 Verification routine [facility] Start: 07-24-2023 Admission procedure [facility] Start: 07-24-2023 Hospital admission, emergency, from emergency room, medical nature [facility] Start: 07-24-2023 Consultation [facility] Start: 07-24-2023 Consultation [facility] Start: 07-24-2023 Patient referral to dietitian [facility] Start: 06-19-2023 Advance Directive Discussion Advance Directive Discussion [facility] Start: 04-04-2023 Patient discharge [facility] Start: 04-03-2023 Consultation [facility] Start: 04-02-2023 Contact precautions [facility] Start: 03-30-2023 End: 03-30-2023 Following clinical pathway protocol [facility] Start: 03-30-2023 Assessment of risk of venous thromboembolism [facility] Start: 03-30-2023 Catheterization of vein [facility] Start: 03-30-2023 Inhalation therapy procedure [facility] Start: 03-30-2023 Insertion of catheter into peripheral vein [facility] Start: 03-30-2023 Oxygen therapy [facility] Start: 03-30-2023 Providing care according to standard [facility] Start: 03-30-2023 Provision of activity privileges [facility] Start: 03-30-2023 Referral to occupational therapist [facility] Start: 03-30-2023 Referral to service [facility] Start: 03-30-2023 End: 03-30-2023 [facility] Start: 03-30-2023 End: 03-30-2023 Blood culture [facility] Start: 03-30-2023 Verification routine [facility] Start: 03-30-2023 Hospital admission, emergency, from emergency room, medical nature [facility] Start: 03-30-2023 Admission procedure [facility] Start: 03-30-2023 Bacteria identified in Blood by Culture Blood Culture [facility] Start: 03-30-2023 Consultation [facility] Start: 03-30-2023 Inhalation therapy procedure [facility] Start: 03-29-2023 [facility] Start: 03-29-2023 Emergency department visit low/moder severity EMERGENCY DEPT VISIT [facility] Start: 03-10-2023 ANNUAL PCP TEAM CHRONIC DISEASE VISIT ANNUAL PCP TEAM CHRONIC DISEASE VISIT [facility] Start: 02-17-2023 Covid-19 Vaccine ( season) Covid-19 Vaccine ( season) [facility] Start: 02-17-2023 Influenza vaccination [facility] Start: 02-04-2023 ANNUAL PCP TEAM CHRONIC DISEASE VISIT ANNUAL PCP TEAM CHRONIC DISEASE VISIT [facility] Start: 01-28-2023 ANNUAL PCP TEAM CHRONIC DISEASE VISIT ANNUAL PCP TEAM CHRONIC DISEASE VISIT [facility] Start: 01-14-2023 SHINGRIX VACCINE (2 of 3) SHINGRIX VACCINE (2 of 3) [facility] Comment on above: Postponed from 11/19/2020 (Declined at t his time) Start: 01-03-2023 Urine microalbumin profile DTAP,TDAP,TD (2 - Td or Tdap) [facility] Start: 11-17-2022 ANNUAL PCP TEAM CHRONIC DISEASE VISIT ANNUAL PCP TEAM CHRONIC DISEASE VISIT [facility] Start: 10-26-2022 COVID-19 VACCINE (4 - Moderna series) COVID-19 VACCINE (4 - Moderna series) [facility] Start: 10-21-2022 [facility] Start: 10-07-2022 ANNUAL PCP TEAM CHRONIC DISEASE VISIT ANNUAL PCP TEAM CHRONIC DISEASE VISIT [facility] Start: 09-15-2022 ANNUAL PCP TEAM CHRONIC DISEASE VISIT ANNUAL PCP TEAM CHRONIC DISEASE VISIT [facility] Start: 06-19-2022 ADVANCE DIRECTIVE DISCUSSION ADVANCE DIRECTIVE DISCUSSION [facility] Start: 04-02-2022 ANNUAL PCP TEAM CHRONIC DISEASE VISIT ANNUAL PCP TEAM CHRONIC DISEASE VISIT [facility] Start: 03-29-2022 End: 05-29-2022 Hemoglobin A1c in Blood HGB A1C Lab Routine Medication management Expected: 03/29/2022, Expires: 05/29/2022 [facility] Work Phone: Comment on above: Expected: 03/29/2022, Expires: 2 Start: 03-29-2022 End: 05-29-2022 Lipid 1996 panel - Serum or Plasma LIPID PANEL BASIC Lab Routine Hyperlipidemia Expected: 03/29/2022, Expires: 05/29/2022 [facility] Work Phone: Comment on above: Expected: 03/29/2022, Expires: 2 Start: 03-29-2022 End: 05-29-2022 SCHEDULE LAB TESTING SCHEDULE LAB TESTING Lab Routine Expected: 03/29/2022, Expires: 05/29/2022 [facility] Work Phone: Comment on above: Expected: 03/29/2022, Expires: 2 Start: 02-17-2022 Influenza vaccination INFLUENZA (#1) [facility] Start: 01-14-2022 End: 03-16-2022 CBC W Auto Differential panel - Blood [facility] Work Phone: Comment on above: Expected: 01/14/2022, Expires: 2 Start: 11-30-2021 Patient discharge [facility] Work Phone: Start: 11-28-2021 Care planning and problem solving actions [facility] Work Phone: Start: 11-26-2021 Administration of blood product [facility] Work Phone: Start: 11-26-2021 Catheterization of vein [facility] Work Phone: Start: 11-26-2021 Notification of physician [facility] Work Phone: Start: 11-26-2021 Referral to occupational therapist [facility] Work Phone: Start: 11-26-2021 End: 11-26-2021 Referral to service [facility] Work Phone: Start: 11-26-2021 Catheterization of vein [facility] Work Phone: Start: 11-26-2021 Following clinical pathway protocol [facility] Work Phone: Start: 11-26-2021 Inhalation therapy procedure [facility] Work Phone: Start: 11-25-2021 Assessment of risk of venous thromboembolism [facility] Work Phone: Start: 11-25-2021 Insertion of catheter into peripheral vein [facility] Work Phone: Start: 11-25-2021 Measuring intake and output [facility] Work Phone: Start: 11-25-2021 Oxygen therapy [facility] Work Phone: Start: 11-25-2021 Providing care according to standard [facility] Work Phone: Start: 11-25-2021 Provision of activity privileges [facility] Work Phone: Start: 11-25-2021 Referral to gastroenterology service [facility] Work Phone: Start: 11-25-2021 [facility] Work Phone: Start: 11-25-2021 Admission procedure [facility] Work Phone: Start: 11-25-2021 End: 11-25-2021 Administration of blood product [facility] Work Phone: Start: 11-25-2021 Patient referral to dietitian [facility] Work Phone: Start: 10-23-2021 End: 12-23-2021 PT panel - Platelet poor plasma by Coagulation assay PROTHROMBIN TIME/PT Lab Routine Anticoagulation goal of INR 2 to 3 Expected: 10/23/2021, Expires: 12/23/2021 [facility] Work Phone: Comment on above: Expected: 10/23/2021, Expires: 2 Start: 10-19-2021 End: 12-19-2021 Hemoglobin A1c/Hemoglobin.total in Blood HGB A1C Lab Routine Medication management Expected: 10/19/2021, Expires: 12/19/2021 [facility] Work Phone: Comment on above: Expected: 10/19/2021, Expires: 2 Start: 10-19-2021 End: 12-19-2021 LIPID PANEL BASIC LIPID PANEL BASIC Lab Routine Hyperlipidemia Expected: 10/19/2021, Expires: 12/19/2021 [facility] Work Phone: Comment on above: Expected: 10/19/2021, Expires: 2 Start: 10-19-2021 End: 12-19-2021 SCHEDULE LAB TESTING SCHEDULE LAB TESTING Lab Routine Expected: 10/19/2021, Expires: 12/19/2021 [facility] Work Phone: Comment on above: Expected: 10/19/2021, Expires: 2 Start: 10-17-2021 Colonoscopy COLONOSCOPY [facility] Start: 10-17-2021 COLORECTAL CANCER SCREENING COLORECTAL CANCER SCREENING [facility] Start: 09-22-2021 End: 11-22-2021 CBC W Auto Differential panel - Blood CBC + DIFF Lab Routine Anemia, unspecified type Expected: 09/22/2021, Expires: 11/22/2021 [facility] Work Phone: Comment on above: Expected: 09/22/2021, Expires: 2 Start: 09-22-2021 End: 11-22-2021 PT panel - Platelet poor plasma by Coagulation assay PROTHROMBIN TIME/PT Lab Routine Encounter for monitoring Coumadin therapy Expected: 09/22/2021, Expires: 11/22/2021 [facility] Work Phone: Comment on above: Expected: 09/22/2021, Expires: Start: 08-21-2021 Patient discharge [facility] Work Phone: Start: 08-19-2021 Application of intermittent pneumatic compression device [facility] Work Phone: Start: 08-19-2021 Oxygen therapy [facility] Work Phone: Start: 08-19-2021 Tobacco use cessation education [facility] Work Phone: Start: 08-19-2021 [facility] Work Phone: Start: 08-19-2021 Care planning and problem solving actions [facility] Work Phone: Start: 08-19-2021 Administration of blood product [facility] Work Phone: Start: 08-19-2021 Referral to child welfare specialist [facility] Work Phone: Start: 08-19-2021 [facility] Work Phone: Start: 08-19-2021 Referral to occupational therapist [facility] Work Phone: Start: 08-19-2021 Referral to service [facility] Work Phone: Start: 08-19-2021 Application of intermittent pneumatic compression device [facility] Work Phone: Start: 08-19-2021 Administration of blood product [facility] Work Phone: Start: 08-19-2021 Administration of blood product [facility] Work Phone: Start: 08-19-2021 Inhalation therapy procedure [facility] Work Phone: Start: 08-18-2021 Following clinical pathway protocol [facility] Work Phone: Start: 08-18-2021 Ambulation without limitation [facility] Work Phone: Start: 08-18-2021 Assessment of risk of venous thromboembolism [facility] Work Phone: Start: 08-18-2021 Insertion of catheter into peripheral vein [facility] Work Phone: Start: 08-18-2021 Providing care according to standard [facility] Work Phone: Start: 08-18-2021 [facility] Work Phone: Start: 08-18-2021 Admission procedure [facility] Work Phone: Start: 06-19-2021 ADVANCE DIRECTIVE DISCUSSION ADVANCE DIRECTIVE DISCUSSION [facility] Start: 06-04-2021 Smpl repair scalp/neck/ax/genit/trunk 2.6-7.5cm RPR S/N/AX/GEN/TRNK2.6-7.5C M [facility] Work Phone: Start: 11-19-2020 SHINGRIX VACCINE (2 of 3) SHINGRIX VACCINE (2 of 3) [facility] Start: 11-05-2020 COVID-19 VACCINE (2 - Moderna 3-dose series) COVID-19 VACCINE (2 - Moderna 3-dose series) [facility] Start: 11-05-2020 COVID-19 VACCINE (2 - Moderna series) COVID-19 VACCINE (2 - Moderna series) [facility] Start: 03-19-2020 Hepatitis B surface antibody level LDL CHOLESTEROL [facility] Start: 11-15-2015 FECAL OCCULT BLOOD FECAL OCCULT BLOOD [facility] Start: 11-15-2015 Screening for malignant neoplasm of colon Fecal Occult Blood [facility] Start: 01-17-2014 Medicare Annual Wellness Visit Medicare Annual Wellness Visit [facility] Start: 2009 RSV Vaccine (1 - 1-dose 60+ series) RSV Vaccine (1 - 1-dose 60+ series) [facility] Start: 2009 RSV Vaccine (1 - Risk 60-74 years 1-dose series) RSV Vaccine (1 - Risk 60-74 years 1-dose series) [facility] Start: 1999 Influenza vaccination LUNG CANCER SCREENING [facility] Start: 1999 Screening for malignant neoplasm of lung Lung Cancer Screening [facility] Start: 1999 SHINGRIX VACCINE (1 of 2) SHINGRIX VACCINE (1 of 2) [facility] Start: 1994 COLOGUARD (FIT-DNA) COLOGUARD (FIT-DNA) [facility] Start: [address] COLONOGRAPHY [facility] Start: 1994 Screening for malignant neoplasm of colon [facility] Start: 1994 SIGMOIDOSCOPY SIGMOIDOSCOPY [facility] Start: 1979 Zoledronic acid therapy ALPHA-1 ANTITRYPSIN DEFICIENCY SCREENING [facility] Start: 1967 BP CONTROLLED (<130/80) BP CONTROLLED (<130/80) [facility] inic Bacteria identified in Urine by Culture URINE CULTURE Microbiology Routine Dysuria Ordered: 09/15/2021 [facility] Work Phone: Comment on above: Ordered: 09/15/2021 Bacteria identified in Urine by Culture Urine Culture [facility] Bacteria identified in Urine by Culture URINE CULTURE Microbiology Routine Dysuria 03/23/2024 2:06 PM EDT [facility] Work Phone: Blood ammonia measurement [place] carBAMazepine [Mass/ volume] in Serum or Plasma [facility] Clostridioides diffi cile DNA [Presence] in Unspecified specimen by ALEENA with probe detection [facility] End: 01-28-2023 ECG COMPLETE ECG COMPLETE ECG Routine Essential hypertension Chest pain, unspecified type 1 Occurrences starting 01/28/2022 until 01/28/2023 [facility] Work Phone: Comment on above: 1 Occurrences starting 01/28/2022 until 01/28/2023 Hemoglobin A1c/Hemoglobin.total in Blood [facility] Hemoglobin.gastroint estinal. lower [Presence] in Stool by Immunoassay FECAL OCCULT BLOOD TEST Lab Routine Acute blood loss anemia Angiodysplasia of colon with hemorrhage Ordered: 01/14/2022 [facility] Work Phone: Comment on above: Ordered: 01/14/2022 INR in Blood by Coag ulation assay [facility] Lactic acid measurement [facility] End: 12-05-2022 LUNG DIFFUSION CAPACITY (DLCO) LUNG DIFFUSION CAPACITY (DLCO) PFT Routine COPD with chronic bronchitis (HCC) 1 Occurrences starting 11/05/2021 until 12/05/2022 [facility] Work Phone: Comment on above: 1 Occurrences starting 11/05/2021 until 12/05/2022 End: 01-15-2026 LUNG DIFFUSION CAPACITY (DLCO) LUNG DIFFUSION CAPACITY (DLCO) PFT Routine SOB (shortness of breath) 1 Occurrences starting 12/17/2024 until 01/15/2026 [facility] Comment on above: 1 Occurrences starting 12/17/2024 until 01/15/2026 Nucleic acid assay [facility] Patient Education [facility] Work Phone: Patient referral [facility] Work Phone: End: 06-18-2023 PVR LEG COREY VAS LAB PVR LEG COREY VAS LAB Vascular Lab Routine PVD (peripheral vascular disease) (HCC) 1 Occurrences starting 01/31/2022 until 06/18/2023 [facility] Work Phone: Comment on above: 1 Occurrences starting 01/31/2022 until 06/18/2023 PVR LEG COREY VAS LAB PVR LEG COREY VAS LAB Vascular Lab Routine Peripheral arterial disease (HCC) PVD (peripheral vascular disease) (HCC) 1 Occurrences starting 12/26/2022 [facility] Work Phone: Comment on above: 1 Occurrences starting 12/26/2022 End: 12-05-2022 Radiologic exam chest 2 views XR CHEST 2V FRONTAL/LAT Radiology Routine COPD with chronic bronchitis (HCC) 1 Occurrences starting 11/05/2021 until 12/05/2022 [facility] Work Phone: Comment on above: 1 Occurrences starting 11/05/2021 until 12/05/2022 Respiratory pathogen s DNA and RNA panel - Respiratory specimen by ALEENA with probe detection [facility] End: 01-15-2026 SPIROMETRY WITH DILATOR IF OBSTRUCTED SPIROMETRY WITH DILATOR IF OBSTRUCTED PFT Routine SOB (shortness of breath) 1 Occurrences starting 12/17/2024 until 01/15/2026 [facility] Work Phone: Comment on above: 1 Occurrences starting 12/17/2024 until 01/15/2026 Troponin T.cardiac [Mass/volume] in Serum or Plasma by High sensitivity method [facility] Troponin T.cardiac [Mass/volume] in Serum or Plasma by High sensitivity method [facility] Urinalysis complete panel - Urine URINALYSIS, WITH MICROSCOPIC Lab Routine Dysuria Hematuria, unspecified type Ordered: 09/15/2021 [facility] [facility] Work Phone: Comment on above: Ordered: 09/15/2021 Urinalysis complete panel - Urine UA WITH CULTURE IF INDICATED Lab Routine Dysuria Ordered: 09/15/2021 [facility] Work Phone: Comment on above: Ordered: 09/15/2021 US Carotid arteries [facility] End: 01-01-2025 US Lower extremity artery - bilateral PVR [facility] Vascular Lab Routine Peripheral arterial disease (HCC) 1 Occurrences starting 01/02/2024 until 01/01/2025 [facility] Work Phone: Comment on above: 1 Occurrences starting 01/02/2024 until 01/01/2025 End: 01-11-2026 XR Chest PA and Lateral XR CHEST 2V FRONTAL/LAT Radiology Routine Wheezing 1 Occurrences starting 12/12/2024 until 01/11/2026 [facility] Comment on above: 1 Occurrences starting 12/12/2024 until 01/11/2026 XR Chest PA and Lateral XR CHEST 2V FRONTAL/LAT Radiology Routine Wheezing 12/12/2024 3:36 PM EDT [facility] Immunizations Immunization Date Immunization Notes Care Provider Luis [facility] 03-31-2023 Influenza High-Dose Quadrivalent Dr. Daija Morton Work Phone: [facility] 03-31-2023 influenza virus vaccine, unspecified formulation Daija Morton MD Work Phone: [facility] 06-04-2021 tetanus toxoid, redu marianna diphtheria toxoid, and acellular pertussis vaccine, adsorbed Dr. Daija Morton Work Phone: [facility] 04-05-2021 influenza, high-dose , quadrivalent vaccine (FLUZONE HIGH DOSE QUADRIVALENT) Lizette Ulloa RN Work Phone: [facility] 04-05-2021 influenza virus vaccine, unspecified formulation Anjel Braga TRAILER DRIVER.PANAMA HAT SMEARER Work Phone: [facility] 10-08-2020 COVID-19 vaccine, fu ll dose (MODERNA) Lizette Ulloa RN Work Phone: [facility] 09-24-2020 zoster vaccine, live Harriett B monie TRAILER DRIVER.LASER SET UP OPERATOR Work Phone: [facility] 09-16-2020 influenza, high-dose , quadrivalent vaccine (FLUZONE HIGH DOSE QUADRIVALENT) Respiratory Wstr Work Phone: [facility] Work Phone: 08-09-2020 influenza, injectabl e, quadrivalent, contains preservative Harriett Albert TRAILER DRIVER.LASER SET UP OPERATOR Work Phone: [facility] 08-09-2020 influenza, injectabl e, quadrivalent, preservative free Dr. Daija Morton Work Phone: [facility] 08-09-2020 influenza, seasonal, injectable Dr. Daija Morton Work Phone: [facility] 08-09-2020 influenza, seasonal, injectable, preservative free Harriett Albert TRAILER DRIVER.LASER SET UP OPERATOR Work Phone: [facility] 05-21-2020 influenza, high-dose , quadrivalent vaccine (FLUZONE HIGH DOSE QUADRIVALENT) Lizette Ulloa RN Work Phone: [facility] Work Phone: 07-11-2019 influenza, high dose seasonal, preservative-free Lizette Mayi RN Work Phone: [facility] Work Phone: 05-18-2018 pneumococcal polysaccharide vaccine, 23 valent Lizette Ulloa RN Work Phone: [facility] 03-14-2018 influenza, high dose seasonal, preservative-free Lizette Toccaceli RN Work Phone: [facility] 05-31-2017 influenza, high dose seasonal, preservative-free Lizette Toccaceli RN Work Phone: [facility] 06-01-2016 influenza, high dose seasonal, preservative-free Lizette Tocdaquani RN Work Phone: [facility] Work Phone: 03-23-2016 influenza, injectabl e, quadrivalent, contains preservative Harriett Albert TRAILER DRIVER.LASER SET UP OPERATOR Work Phone: [facility] 03-23-2016 influenza, injectabl e, quadrivalent, preservative free Dr. Daija Morton Work Phone: [facility] 03-23-2016 influenza, seasonal, injectable Dr. Daija Morton Work Phone: [facility] 03-23-2016 influenza, seasonal, injectable, preservative free Lizette Ulloa RN Work Phone: [facility] Work Phone: 07-14-2015 pneumococcal conjuga te vaccine, 13 valent Lizette Ulloa RN Work Phone: [facility] Work Phone: 09-09-2014 influenza, injectabl e, quadrivalent, contains preservative Harriett Albert TRAILER DRIVER.LASER SET UP OPERATOR Work Phone: [facility] 09-09-2014 influenza, injectabl e, quadrivalent, preservative free Dr. Daija Morton Work Phone: [facility] 09-09-2014 influenza, seasonal, injectable Dr. Daija Morton Work Phone: [facility] 09-09-2014 influenza, seasonal, injectable, preservative free Lizette Ulloa RN Work Phone: [facility] Work Phone: 03-25-2013 pneumococcal polysaccharide vaccine, 23 valent Lizette Ulloa RN Work Phone: [facility] Work Phone: 03-25-[address] Nemesio Morton Work Phone: [facility] Work Phone: 03-25-2013 pneumococcal vaccine , unspecified formulation Respiratory Wstr Work Phone: [facility] Work Phone: 03-24-[address] Daija Morton Work Phone: [facility] 03-24-2013 influenza virus vaccine, unspecified formulation Lizette Ulloa RN Work Phone: [facility] Work Phone: 03-24-2013 influenza, seasonal, injectable Harriett Albert APRN.LASER SET UP OPERATOR Work Phone: [facility] 03-24-2013 influenza, seasonal, injectable, preservative free Lizette Ulloa RN Work Phone: [facility] Work Phone: 01-03-2013 tetanus toxoid, redu marianna diphtheria toxoid, and acellular pertussis vaccine, adsorbed Lizette Ulloa RN Work Phone: [facility] Payers Date Payer Category Payer Unknown [id number] 2024 Medicare (Managed Care) [id number]. [id number] 2024 Medicare [id number] 2024 Medicaid [id number] 2024 Self-pay [id number] 2023 Private Health Insurance [id number] 2022 Unknown [id number] 2021 Medicare [facility] MEDICAR E [facility] MEDICARE HMO [id number] [facility] [phone] [facility] [address] [place] [address] HMO [id number] 2017 Medicaid [id number] 2017 Medicaid [id number]. 1.13.159.2.7 .[id number] 2014 Medicare [id number] 2014 Medicare [id number]. 1.13.159.2.7 .[id number] 2014 Medicare [id number] 1950 Unknown [id number] 2.16.840.1.464302.3.579.2.6 27 1950 Unknown [id number] 2.16.840.1.746076.3.579.2.6 27 Private Health Insurance [facility] HMO IN [facility] [id number] Unknown [id number] Unknown [id number] Unknown [id number] 2.16.840.1.065254.3.579.2.4 62 Unknown [id number] 2.16.840.1.612834.3.579.2.4 62 Unknown [id number] 2.16.840.1.869864.3.579.2.4 62 Unknown [id number] 2.16.840.1.460894.3.579.2.4 62 Unknown [id number] 2.16.840.1.409283.3.579.2.4 62 Unknown [id number] 2.16.840.1.811346.3.579.2.4 62 Unknown [id number] 2.16.840.1.381472.3.579.2.4 62 Unknown [id number] 2.16.840.1.536222.3.579.2.4 62 Unknown [id number] 2.16.840.1.261632.3.579.2.4 62 Unknown [id number] 2.16.840.1.214420.3.579.2.4 62 Unknown [id number] 2.16.840.1.236411.3.579.2.4 62 Unknown [id number] 2.16.840.1.061426.3.579.2.4 62 Unknown [id number] 2.16.840.1.536046.3.579.2.4 62 Unknown [id number] 2.16.840.1.149274.3.579.2.4 62 Unknown [id number] 2.16.840.1.763506.3.579.2.4 62 Unknown [id number] 2.16.840.1.502639.3.579.2.4 62 Unknown [id number] 2.16.840.1.513040.3.579.2.4 62 Unknown [id number] 2.16.840.1.226059.3.579.2.4 62 Unknown [id number] 2.16.840.1.710347.3.579.2.4 62 Unknown [id number] 2.16.840.1.439158.3.579.2.4 62 Unknown [id number] 2.16.840.1.914737.3.579.2.4 62 Unknown [id number] 2.16.840.1.293243.3.579.2.4 62 Unknown [id number] 2.16.840.1.401532.3.579.2.4 62 Unknown [id number] 2.16.840.1.441064.3.579.2.4 62 Unknown [id number] 2.16.840.1.050402.3.579.2.4 62 Unknown [id number] 2.16.840.1.833346.3.579.2.4 62 Unknown [id number] 2.16.840.1.652333.3.579.2.4 62 Unknown [id number] 2.16.840.1.457987.3.579.2.4 62 Unknown [id number] 2.16.840.1.515329.3.579.2.4 62 Unknown [id number] 2.16.840.1.504499.3.579.2.4 62 Unknown [id number] 2.16.840.1.494968.3.579.2.4 62 Unknown [id number] 2.16.840.1.528905.3.579.2.4 62 Unknown [id number] 2.16.840.1.012967.3.579.2.4 62 Unknown [id number] 2.16.840.1.415255.3.579.2.4 62 Unknown [id number] 2.16.840.1.502769.3.579.2.4 62 Unknown [id number] 2.16.840.1.024178.3.579.2.4 62 Unknown [id number] 2.16.840.1.341082.3.579.2.4 62 Unknown [id number] 2.16.840.1.024316.3.579.2.4 62 Unknown [id number] 2.16.840.1.040674.3.579.2.4 62 Unknown [id number] 2.16.840.1.512884.3.579.2.4 62 Unknown [id number] 2.16.840.1.750137.3.579.2.4 62 Unknown [id number] 2.16.840.1.575459.3.579.2.4 62 Unknown [id number] 2.16.840.1.428040.3.579.2.4 62 Unknown [id number] 2.16.840.1.106714.3.579.2.4 62 Unknown [id number] 2.16.840.1.239016.3.579.2.4 62 Unknown [id number] 2.16.840.1.418919.3.579.2.4 62 Unknown [id number] 2.16.840.1.969054.3.579.2.4 62 Unknown [id number] 2.16.840.1.407293.3.579.2.4 62 Unknown [id number] 2.16.840.1.621720.3.579.2.4 62 Unknown [id number] 2.16.840.1.394371.3.579.2.4 62 Unknown [id number] 2.16.840.1.875993.3.579.2.4 62 Unknown [id number] 2.16.840.1.817943.3.579.2.4 62 Unknown [id number] 2.16.840.1.397846.3.579.2.4 62 Unknown [id number] 2.16.840.1.205217.3.579.2.4 62 Unknown [id number] 2.16.840.1.808911.3.579.2.4 62 Unknown [id number] 2.16.840.1.822164.3.579.2.4 62 Unknown [id number] 2.16.840.1.776339.3.579.2.4 62 Unknown [id number] 2.16.840.1.129075.3.579.2.4 62 Unknown [id number] 2.16.840.1.459641.3.579.2.4 62 Unknown [id number] 2.16.840.1.288546.3.579.2.4 62 Unknown [id number] 2.16.840.1.878574.3.579.2.4 62 Unknown [id number] 2.16.840.1.486090.3.579.2.4 62 Unknown [id number] 2.16.840.1.241057.3.579.2.4 62 Unknown [id number] 2.16.840.1.390184.3.579.2.4 62 Unknown [id number] 2.16.840.1.747631.3.579.2.4 62 Unknown [id number] 2.16.840.1.126248.3.579.2.4 62 Unknown [id number] 2.16.840.1.748456.3.579.2.4 62 Unknown [id number] 2.16.840.1.848586.3.579.2.4 62 Social History Date Type Detail Facility Start: 04-10-2020 End: 01-05-2025 Tobacco smoking status NHIS Ex-smoker [facility] Start: 06-19-1964 History of tobacco use Cigarette Smo ker [facility] Start: 04-10-2020 End: 12-26-2022 Cigarettes smoked current (pack per day) - Reported 2 [facility] Start: 04-10-2020 End: 03-23-2024 Tobacco use and exposure Smokeless tobacco non-user [facility] Start: 08-26-2021 End: 12-12-2024 Alcohol intake Current non-drinker of alcohol (finding) [facility] Start: 04-16-2015 History SDOH Alcohol Comment History of alcohol abuse. I cut that out. [facility] Start: 12-17-2019 History SDOH Financial 5 [facility] Start: 12-17-2019 History SDOH Food Worry 2 [facility] Start: 12-17-2019 History SDOH Food Scarcity 1 [facility] Start: 08-22-2019 End: 01-31-2022 Tobacco Comment patient started using patches [facility] Start: 1950 Sex Assigned At Not on file [facility] Start: 10-12-2020 End: 03-10-2022 Exposure to SARS-CoV-2 (event) Not sure [facility] Start: 06-19-1964 End: 03-23-2024 Tobacco smoking status MIIS Smokes tobacco daily [facility] Start: 09-17-2021 End: 01-23-2025 Tobacco smoking status NHIS Unknown if ever smoked [facility] Start: 01-20-2021 None [facility] Start: 12-16-2019 [facility] Start: 08-09-2020 Cigarettes [facility] Start: 1950 Sex Assigned At Male [facility] Start: 09-14-2021 End: 01-28-2022 Exposure to SARS-CoV-2 (event) Unable to assess [facility] Start: 05-14-2018 Tobacco smoking status Light t obacco smoker (finding) [facility] Sex Assigned At Sex [facility] Start: 12-17-2019 End: 12-26-2022 Tobacco use panel [facility] How hard is it for y ou to pay for the very basics like food, housing, medical care, and heating Not hard at all [facility] (I/We) worried whemauricio er (my/our) food would run out before (I/we) got money to buy more. Sometimes true [facility] The food that (I/we) bought just didn't last, and (I/we) didn't have money to get more. Never true [facility] Start: [birth year]19-1964 History of tobacco use Current smoke r [facility] Start: 08-25-2024 End: 08-25-2024 Tobacco smoking status NHIS Current some day smoker [facility] Start: 08-25-2024 End: 09-02-2024 Sex Male (finding) [facility] Medical Equipment Procedure Code Equipment Code Equipment Original Text Equipment Identifier Dates EGD, with monitored anesthesia care [id number] FDA Start: 12-23-2024 EGD, with monitored anesthesia care [id number] FDA Start: 01-06-2025 Graft [place] 7mm T hin Wall Heparin Propaten Ptfe 80cm 60cm Vascular Removable - [id number] Start: 10-10-2019 Patch Cv 8x.8cm Tapr Vsgrd Bov - [id number] Start: 10-23-2013 Comment on above: Description: Implant ed left femoral artery Patch Vascu-Guar d Taper Bovine Pericardial 8x.8cm Cardiovascular Cascade - [id number] Start: 10-08-2019 Stent Palmaz Gen esis Opta Pro Flexsegment 8mm 40mm Large Stainless Steel 80 - [id number] Start: 10-08-2019 Stent Palmaz Gen esis Opta Pro Flexsegment 8mm 40mm Large Stainless Steel 80 - [id number] Start: 10-08-2019 Stent Trchbr 7mm 7fr 38mm 120 - [id number] Start: 10-23-2013 Comment on above: Description: Second stent lot #[id number]. exp. 03/2016 Stent Vasc 8mm 1 5cm 120cm .035 - [id number] Start: 10-23-2013 Comment on above: Description: Implant ed in left iliac artery Stent Trchbr 7mm 7fr 38mm 120 - [id number] Start: 10-23-2013 Stent Corey 10mm 8 0mm 120cm .035 - [id number] Start: 10-23-2013 Comment on above: Description: Implant ed in right iliac artery Stent Corey 10mm 8 0mm 120cm .035 - [id number] Start: 10-23-2013 Comment on above: Description: Implant ed in right iliac artery Stent Icast 8mm Ptfe Stainless Steel 59mm 80cm Tracheobronchial Covered - [id number] Start: 10-08-2019 Stent Icast 8mm Ptfe Stainless Steel 59mm 80cm Tracheobronchial Covered - [id number] Start: 10-08-2019 Goals Date Patient Goal Desired Activity /State Personal health goal Personal health goal Comment on above: Formatting of this n ote might be different from the original. Relief of back pain Comment on above: Formatting of this n ote might be different from the original. Relief of back pain Functional Status Date Assessment Result Facility 01-08-2025 Functional status Ambulates;Emeka r;Bedside Commode;Stand and pivot [facility] Work Phone: 12-26-2024 [facility] Work Phone: 12-16-2024 Functional status With Assist of 1 [facility] Work Phone: 12-16-2024 Functional status Ambulates;Back to bed [facility] Work Phone: 09-02-2024 Functional status With Assist of 1 [facility] Work Phone: 09-01-2024 Functional status Bathroom Privilege [facility] Work Phone: 08-02-2023 Functional status With Assist of 1 [facility] Work Phone: 08-01-2023 Functional status Bedrest [facility] Work Phone: 07-26-2023 Functional status Chair [facility] Work Phone: 07-26-2023 Functional status Bedrest [facility] Work Phone: 07-25-2023 Functional status None [facility] Work Phone: 04-04-2023 Functional status Up ad chadwick;Bath room Privilege [facility] Work Phone: 10-22-2022 Functional Status Minimum assistance [facility] 10-22-2022 Functional Status Standard Safet y ID band on, Call device within reach, Bed in low position, Wheels locked, Upper/Half-Length side-rails up, Phone within reach, Bedside Cart Locked [facility] 11-30-2021 Functional status Ambulates [facility] Work Phone: 09-29-2021 Functional Status Saline Dewayne stonetal [facility] 09-13-2021 Are you deaf, or do you have serious difficulty hearing No 09/13/2021 4:47 PM Bessy Ovalles, ОЛЕГ No [facility] 09-13-2021 Are you blind, or do you have serious difficulty seeing, even when wearing glasses No 09/13/2021 4:47 PM Bessy Ovalles, ОЛЕГ No [facility] 09-13-2021 Do you have serious difficulty walking or climbing stairs No 09/13/2021 4:47 PM Bessy Ovalles, ОЛЕГ No [facility] 09-13-2021 Do you have difficul ty dressing or bathing No 09/13/2021 4:47 PM Bessy Ovalles, ОЛЕГ No [facility] 09-13-2021 Because of a physica l, mental, or emotional condition, do you have difficulty doing errands alone such as visiting a physician's office or shopping No 09/13/2021 4:47 PM Bessy Ovalles, ОЛЕГ No [facility] 08-21-2021 Functional status Ambulates;Emeka r;Bathroom Privilege [facility] Work Phone: 08-21-2021 Functional status Tolerates Activity Well [facility] Work Phone: Mental Status Date Assessment Result Facility 01-08-2025 Cognitive function Touch/Shaking [facility] Work Phone: 01-05-2025 Cognitive function Awake;Disoriented [facility] Work Phone: 12-26-2024 Cognitive function Voice/Name [facility] Work Phone: 12-17-2024 Cognitive function Voice/Name [facility] Work Phone: 12-16-2024 Cognitive function Voice/Name [facility] Work Phone: 09-02-2024 Cognitive function Voice/Name [facility] Work Phone: 08-25-2024 Cognitive function Level Of Cons ciousness Awake;Alert;Appropriate;Fol lows Commands [facility] Work Phone: 08-02-2023 Cognitive function Voice/Name [facility] Work Phone: 07-26-2023 Cognitive function Person;Place;Time [facility] Work Phone: 07-25-2023 Cognitive function Voice/Name [facility] Work Phone: 04-04-2023 Cognitive function Voice/Name [facility] Work Phone: 02-17-2023 Cognitive function Level Of Cons ciousness Awake;Alert;Appropriate;Fol lows Commands [facility] Work Phone: 12-31-2022 Cognitive function Level Of Cons ciousness Awake;Alert;Appropriate;Fol lows Commands [facility] Work Phone: 10-22-2022 Mental Status Orientation Oriented x 4 [facility] 10-22-2022 Mental Status [facility] 03-07-2022 Cognitive function Level Of Cons ciousness Awake;Alert;Appropriate [facility] Work Phone: 03-02-2022 Cognitive function Level Of Cons ciousness Awake;Alert;Appropriate [facility] Work Phone: 01-28-2022 Cognitive function Level Of Cons ciousness Awake;Alert;Appropriate;Fol lows Commands [facility] Work Phone: 11-30-2021 Cognitive function Voice/Name [facility] Work Phone: 10-08-2021 Cognitive function Level Of Cons ciousness Awake;Alert;Appropriate;Fol lows Commands [facility] Work Phone: 09-29-2021 [facility] 09-13-2021 Because of a physica l, mental, or emotional condition, do you have serious difficulty concentrating, remembering, or making decisions No 09/13/2021 4:47 PM EDT Bessy Nunez RN [facility] 08-21-2021 Cognitive function Voice/Name [facility] Work Phone: 06-12-2021 Cognitive function Level Of Cons ciousness Awake;Alert;Appropriate;Fol lows Commands [facility] Work Phone: Clinical Notes 10-08-2019 to 01-17-2025 Telephone Encounter - Debby Saldana LPN - 01/17/2025 9:06 AM EDTTelephone Encounter - Debby Saldana LPN - 01/17/2025 9:06 AM EDT Note Date & Type Note Facility 01-17-2025 Telephone encount er Note The patient has been identified by name and date of : Yes, pharmacy Caregiver verified no other encounters exist for this prescription request: Yes Caregiver confirmed with patient/requestor that no other refills are due, in the near future, with this provider at this time: Yes The last office visit in the department: 12/12/2024 Does the patient have a future office visit with this provider/department: No no future appt scheduled Requested Prescriptions Pending Prescriptions Disp Refills gabapentin (NEURONTIN) 100 mg capsule 60 capsule 0 Sig: Take 1 capsule by mouth two times a day for 30 days. Every AM and at bedtime. Debby Saldana LPN January 17, 2025 9:07 AM [facility] 01-17-2025 Miscellaneous Notes Formattin g of this note is different from the original. The patient has been identified by name and date of : Yes, pharmacy Caregiver verified no other encounters exist for this prescription request: Yes Caregiver confirmed with patient/requestor that no other refills are due, in the near future, with this provider at this time: Yes The last office visit in the department: 12/12/2024 Does the patient have a future office visit with this provider/department: No no future appt scheduled Requested Prescriptions Pending Prescriptions Disp Refills gabapentin (NEURONTIN) 100 mg capsule 60 capsule 0 Sig: Take 1 capsule by mouth two times a day for 30 days. Every AM and at bedtime. Debby Saldana LPN January 17, 2025 9:07 AM documented in this encounter [facility] 01-08-2025 Discharge summary Note Date/Time January 08, 2025 4:09pm [facility] Medical Records Department [address] [place] [address] Transfer to [facility] MR#: [id number] Acct: [id number] Name: PEDRO PABLO SIERRA Rep #:[id number] : 1950 74 From: Ryan Guerin DO PCP: Dr. Lorraine Mena MD Status:A DM IN Certification of patient admission REQUIRED AT TIME OF ADMISSION. I CERTIFY THAT POST-HOSPITAL ECF SERVICES ARE REQUIRED TO BE GIVEN ON AN IN-PATIENT BASIS BECAUSE OF THE ABOVE NAMED PATIENT'S NEED FOR SENIOR CARE CARE ON A CONTINUING BASIS FOR THE CONDITION(S) FOR WHICH HE/SHE WAS RECEIVING IN-PATIENT HOSPITAL SERVICES PRIOR TO HIS/HER TRANSFER TO [facility]. 01/08/25 1607<Electronically signed by Ryan Guerin DO> Diet Diet Order/Speech Therapy: INPATIENT Hospital Diet / Speech Therapy Order(s) 01/06/25 00:01 Diet: Nothing Per Oral Routine Orders/Code Status Code Status: Full Code DC O2, CPAP, BIPAP needs Home O2 Discharge instructions: Yes Type of respiratory needs?: Oxygen Oxygen frequency: Continuous Continuous oxygen liters per minute: 2 L Wound(s) Abdomen: Wound Type: Surgical Incision Therapies Weight Bearing: Weight bearing as tolerated (with walker) Physical Therapy: Eval and Treat Occupational Therapy: Eval and Treat Speech Therapy: Eval and Treat Problem/Diagnosis (1) PEG tube malfunction: Status: Acute Code(s): K94.23 - Gastrostomy malfunction (2) CVA (cerebral vascular accident): Status: Acute Code(s): I63.9 - Cerebral infarction, unspecified Plan 1. Aspiration pneumonia-patient will remain on his current antibiotic coverage #2 acute hypoxic respiratory failure-patient's pulse ox will be monitored, patient remains on nasal cannula oxygen #3 cerebrovascular disease with recent left MCA ischemic stroke-deficits includedysarthria, dysphagia, and right-sided weakness #4 paroxysmal atrial fibrillation #5 chronic obstructive pulmonary disease-patient will remain on aerosol treatment #6 dislodged PEG tube-this was replaced by gastroenterology, tube feedings restarted today Total clinical time spent by myself addressing the patient's medical issues, reviewing all of his data, and collaborating with the patient's care team: 35 minutes Allergies/Procedures Done in Hospital Allergies No Known Allergies Allergy (Verified 01/03/25 06:32) Procedures: Peg tube placement Type of Care/Length of Stay Estimated LOS: Convalescent Care Less Than 30 days Type of Care Needed: Skilled Rehab Potential: Fair Prognosis: Fair Additional Orders/Day of Discharge H&P will serve as current which was dated: 01/05/25 Day of Discharge: 01/08/25 Dietary and Speech Recommendations Dietitian Recommendations/Changes: 1. Recommend advanced diet as tolerated to cardiac per [employer] recommendations. 2. Initiate via PEG: Jevity 1.5Cal goal rate 55ml/hr x 24 hours with 165ml waterflushes every 4 hours to provide 1980 calories, 84g protein, and 1993ml total free water per day. Start at 25ml/hr and increase by 15ml every 8-12 until goal rate is achieved. 3. If running 18 hours per day is indicated recommend Jevity 1.5Cal at 70ml x 18hours with 165ml water flushes to provide 1890 calories, 80g protein, and 1947mltotal free water per day. 4. Will monitor weight and labs. Discharge Plan Admission Admit Date/Time: 01/05/25 13:36 Primary Reason for Your Visit: Aspiration pneumonia, dislodged PEG tube Attending Provider: Ryan Guerin Primary Care Provider: Lorraine Mena Consulting Providers: Frankie Galindo Discharge Orders/Prescriptions Prescriptions: New atorvastatin 40 mg Tablet 40 mg G-tube QHS Qty: 0 0RF prednisone 20 mg Tablet 40 mg G-tube BREAKFAST Qty: 0 0RF Eliquis 5 mg Tablet 5 mg G-tube BID Qty: 0 0RF lansoprazole [Prevacid] 30 mg capsule,delayed release(DR/EC) 30 mg feeding tube BID Qty: 1 0RF cefdinir 250 mg/5 mL suspension for reconstitution 300 mg feeding tube BID Qty: 60 0RF Rx Instructions: Give 6 mL twice daily down G-tube for a total of 14 doses Continued acetaminophen 325 mg Tablet 650 mg feeding [...] PRN PRN (Reason: Insomnia) Qty: 0 0RF thiamine HCl (vitamin B1) 100 mg [...] Qty: 30 0RF hydralazine 25 mg Tablet 50 mg G-tube 3XD metoprolol tartrate 25 mg tablet 50 mg feeding tube BID Discontinued atorvastatin 40 MG tablet 40 mg PO QHS Patient Comments: CHOLESTEROL alendronate 70 mg tablet 70 mg PO QWEEK Qty: 1 0RF prednisone 20 mg Tablet 40 mg G-tube BREAKFAST 5 Days Qty: 10 0RF atorvastatin [Lipitor] 40 mg tablet 40 mg PO DAILY Eliquis 5 mg tablet 5 mg PO BID pantoprazole [Protonix] [address] for susp in packet 40 mg PO DAILY Referrals / Follow Up: Lorraine Mena MD [Primary Care Provider] - Disposition Disposition (needs filled in before D/C Order can be placed): Senior Living Facility 01/08/25 1609 <Electronically signed by Ryan Guerin DO> Cosigner Signature (if applicable): CC: Dr. Frankie Galindo MD; Dr. Lorraine Mena MD ~ [facility] Work Phone: 1(623) 397-421007-23-2025 Hospital Discharge instructionsAdditional Instructions Date of Discharge: 01/08/25[facility] Work Phone: 1(663) 557-838707-23-2025 Progress note Author Ryan Guerin [facility] Note Date/Time January 08, 2025 7:25 am [facility] Medical Records Department [address] [place] [address] Progress Note - Hospitalist 01/07/251951 MR#: [id number] Acct: [id number] Name: PEDRO PABLO SIERRA Rep #:[id number] : 1950 74 From: Ryan Guerin DO PCP: Dr. Lorraine Mena MD Status:A DM IN Location: [place] [address] Reason for Visit Chief Complaint: Suspected PEG tomorrow found Subjective Subjective The date of this injury is 01/07/2025: Patient was seen and examined today, he iscurrently on 2 L of oxygen via nasal cannula, I restarted his tube feedings today, we are currently awaiting pre-CERT for [facility]. Objective Data Objective Data Vital Signs: Vital Signs Temp Pulse Resp BP Pulse Ox O2 Del Method O2 Flow Rate 97.7 F L 78 20 H 107/46 L 97 Nasal Cannula 2 01/07/25 14:52 01/07/25 19:36 01/07/25 19:36 01/07/25 14:52 01/07/25 14:52 01/07/25 14:52 01/07/25 14:52 FiO2 35 01/06/25 15:50 Oxygen Flow Rate (L/min) 2 Oxygen Delivery Method Nasal Cannula Weight: 64.9 kg Body Mass Index (BMI) 19.4 Intake & Output: Intake and Output for Last 24 Hours 01/05/25 01/06/25 01/07/25 23:59 23:59 23:59 Intake Total 186.67 / 186.67 2060.21 / 2060.21 1100 / 1100 Output Total 100 / 100 950 / 1400 1050 / 1050 Balance 86.67 / 86.67 1110.21 / 660.21 50 / 50 Lab / Micro Data 01/06/25 02:30 01/06/25 02:30 Micro: Microbiology 01/05/25 14:09 Blood Culture (Wb) - Anticubital Left Blood Culture - Preliminary No growth in 48 hours. 01/05/25 14:09 Blood Culture (Wb) - Right Wrist Blood Culture - Preliminary No growth in 48 hours. 01/05/25 23:30 Sputum, Induced/Lukens Gram Stain - Final 01/05/25 23:30 Sputum, Induced/Lukens Respiratory Culture - Preliminary Gram negative holly 01/05/25 15:40 Mucosa - Nasopharyngeal Coronavirus COVID-19 PCR - Final 01/05/25 15:40 Mucosa - Nasopharyngeal Respiratory Panel (PCR) - Final 01/05/25 16:36 Urine, Clean Catch Legionella Antigen - Final 01/05/25 16:36 Urine, Clean Catch Streptococcus pneumoniae Antigen (M - Final Physical Exam Narrative alert and no apparent distress Constitutional Narrative: Patient has severe dysarthria General Appearance: cooperative, well kempt and well developed Orientation / Consciousness: awake HEENT normocephalic, head/scalp atraumatic and moist oral mucous membranes Eyes PERRL, EOMs intact bilaterally and conjunctivae normal Neck no JVD and thyroid normal General: trachea midline Resp normal respiratory effort, no retractions and no use of accessory muscles Resp Narrative: Expiratory rhonchi are noted anteriorly bilaterally Auscultation: rhonchi throughout; Negative for rales or wheezes Cardio regular rate, regular rhythm, S1 normal heart sound, S2 normal heart sound, no murmurs, no rub and no gallops GI normal to inspection, nondistended, normoactive bowel sounds, soft to palpation,non-tender and non-distended Extremity no clubbing, cyanosis or edema Skin no rashes or lesions noted General Skin Exam: no breakdown Neuro Neuro Narrative: Patient has dysarthria, there is noted to be right sided facial droop, patient has right-sided weakness Sensorium / Orientation: awake and alert Psych Psych Narrative: Patient has flat affect Assessment & Plan Assessment/Plan (1) PEG tube malfunction: (2) CVA (cerebral vascular accident): PLAN: Plan 1. Aspiration pneumonia-patient will remain on his current antibiotic coverage #2 acute hypoxic respiratory failure-patient's pulse ox will be monitored, patient remains on nasal cannula oxygen #3 cerebrovascular disease with recent left MCA ischemic stroke-deficits includedysarthria, dysphagia, and right-sided weakness #4 paroxysmal atrial fibrillation #5 chronic obstructive pulmonary disease-patient will remain on aerosol treatment #6 dislodged PEG tube-this was replaced by gastroenterology, tube feedings restarted today Total clinical time spent by myself addressing the patient's medical issues, reviewing all of his data, and collaborating with the patient's care team: 35 minutes Charges/Coding Visit Charges Inpatient E&M: 03924 Subs Hosp L2 01/08/25724 <Electronically signed by Ryan Guerin DO> Cosigner Signature (if applicable): CC: ~ Signed [facility] Work Phone: 1(851) [phone] Progress note Author Ryan Guerin [facility] Note Date/Time January 07, 2025 7:52 pm [facility] Medical Records Department [address] [place] [address] Progress Note - Hospitalist 01/07/251943 MR#: [id number] Acct: [id number] Name: PEDRO PABLO SIERRA Rep #:[id number] : 1950 74 From: Ryan Guerin DO PCP: Dr. Lorraine Mena MD Status:A DM IN Location: [place] [address] Reason for Visit Chief Complaint: Suspected PEG tomorrow found Subjective Subjective The date of this entry is 01/06/2025: Patient was seen and examined today, he underwent replacement of his PEG tube today and I received a call from anesthesia stating that he required oxygen via Ventimask but the patient would not keep the Ventimask on. I requested that the patient be placed on high flow nasal cannula oxygen and we will monitor him on PCU. Objective Data Objective Data Vital Signs: Vital Signs Temp Pulse Resp BP Pulse Ox O2 Del Method O2 Flow Rate 97.7 F L 78 20 H 107/46 L 97 Nasal Cannula 2 01/07/25 14:52 01/07/25 19:36 01/07/25 19:36 01/07/25 14:52 01/07/25 14:52 01/07/25 14:52 01/07/25 14:52 FiO2 35 01/06/25 15:50 Oxygen Flow Rate (L/min) 2 Oxygen Delivery Method Nasal Cannula Weight: 64.9 kg Body Mass Index (BMI) 19.4 Intake & Output: Intake and Output for Last 24 Hours 01/05/25 01/06/25 01/07/25 23:59 23:59 23:59 Intake Total 186.67 / 186.67 2060.21 / 2059.21 1100 / 1100 Output Total 100 / 100 950 / 1400 1050 / 1050 Balance 86.67 / 86.67 1110.21 / 660.21 50 / 50 Lab / Micro Data 01/06/25 02:30 01/06/25 02:30 Micro: Microbiology 01/05/25 14:09 Blood Culture (Wb) - Anticubital Left Blood Culture - Preliminary No growth in 48 hours. 01/05/25 14:09 Blood Culture (Wb) - Right Wrist Blood Culture - Preliminary No growth in 48 hours. 01/05/25 23:30 Sputum, Induced/Lukens Gram Stain - Final 01/05/25 23:30 Sputum, Induced/Lukens Respiratory Culture - Preliminary Gram negative holly 01/05/25 15:40 Mucosa - Nasopharyngeal Coronavirus COVID-19 PCR - Final 01/05/25 15:40 Mucosa - Nasopharyngeal Respiratory Panel (PCR) - Final 01/05/25 16:36 Urine, Clean Catch Legionella Antigen - Final 01/05/25 16:36 Urine, Clean Catch Streptococcus pneumoniae Antigen (M - Final Physical Exam Const alert and no apparent distress Constitutional Narrative: Patient has severe dysarthria General Appearance: cooperative, well kempt and well developed Orientation / Consciousness: awake HEENT normocephalic, head/scalp atraumatic and moist oral mucous membranes Eyes PERRL, EOMs intact bilaterally and conjunctivae normal Neck no JVD and thyroid normal General: trachea midline Resp normal respiratory effort, no retractions and no use of accessory muscles Resp Narrative: Expiratory rhonchi are noted anteriorly bilaterally Auscultation: rhonchi throughout; Negative for rales or wheezes Cardio regular rate, regular rhythm, S1 normal heart sound, S2 normal heart sound, no murmurs, no rub and no gallops GI normal to inspection, nondistended, normoactive bowel sounds, soft to palpation,non-tender and non-distended Extremity no clubbing, cyanosis or edema Skin no rashes or lesions noted General Skin Exam: no breakdown Neuro Neuro Narrative: Patient has dysarthria, there is noted to be right sided facial droop, patient has right-sided weakness Sensorium / Orientation: awake and alert Psych Psych Narrative: Patient has flat affect Assessment & Plan Assessment/Plan (1) CVA (cerebral vascular accident): PLAN: Plan 1. Aspiration pneumonia-patient will remain on his current antibiotic coverage #2 acute hypoxic respiratory failure-patient's pulse ox will be monitored #3 cerebrovascular disease with recent left MCA ischemic stroke-deficits includedysarthria, dysphagia, and right-sided weakness #4 paroxysmal atrial fibrillation #5 chronic obstructive pulmonary disease-patient will remain on aerosol treatment #6 dislodged PEG tube-this was replaced today by gastroenterology, tube feedingswill most likely be restarted tomorrow Total clinical time spent by myself addressing the patient's medical issues, reviewing all of his data, and collaborating with the patient's care team: 35 minutes Charges/Coding Visit Charges Inpatient E&M: 08825 Subs Hosp L2 01/07/251951 <Electronically signed by Ryan Guerin DO> Cosigner Signature (if applicable): CC: ~ Signed [facility] Work Phone: 1(455) 567-712507-22-2025 Progress note Author Paulino Henderson [facility] Note Date/Time January 07, 2025 5:41 pm [facility] Medical Records Department [address] [place] [id number] Progress Note 01/07/25 1739 MR#: [id number] Acct: [id number] Name: PEDRO PABLO SIERRA Rep #:[id number] : 1950 74 From: Paulino Henderson DO PCP: Dr. Lorraine Mena MD Status:A DM IN Location: [place] [address] Progress Note Patient had some respiratory distress after upper endoscopy yesterday. It was secondary to inability to swallow his own secretions. Physical Exam Const alert, no apparent distress and healthy appearing General Appearance: cooperative GI normal to inspection, nondistended, normoactive bowel sounds, soft to palpation,non-tender and non-distended Percussion: normal to percussion Rectal Exam: deferred Assessment & Plan Assessment/Plan (1) PEG tube malfunction: PLAN: 74-year-old with multiple comorbidities who recently pulled his PEG tube out. We will take him for endoscopy tomorrow for PEG tube replacement. His bowel return was explained alternatives, benefits, risk including understanding bleeding, infection, sepsis, perforation, need for more surgery and . He will have an ASA of 3. PLAN: Plan 01/07/2025-continue binder on patient's abdomen and hopefully he will not pull out his PEG tube again. Continue tube feedings up to goal. PEG tube okay to use for daily usage. Visit Charges Inpatient E&M: 39280 Subs Hosp L3 01/07/25 1741 <Electronically signed by Paulino Henderson DO> Paulino Henderson DO Cosigner Signature (if applicable): CC: ~ Signed [facility] Work Phone: 1([phone]) 985-948307-21-2025 Consult note Author Segun Patel [facility] Note Date/Time January 06, 2025 6:04 pm [facility] Medical Records Department [address] [place] [address] Anesthesia Postop Eval II 01/06/251754 MR#: [id number] Acct: [id number] Name: PEDRO PABLO SIERRA Rep #:[id number] : 1950 74 From: Segun Patel MD PCP: Dr. Lorraine Mena MD Status:A DM IN Y Race: C Location: [place] [address] 1-1 Anesthesia Postop Eval I Sum Postop Eval Completion status Anesthesia document: Postop Eval 1 completed: Yes Anesthesia Postop Eval I Summary Anesthesia Postop Eval I Summary: Anesthesia Postop Eval I: Assessment Summary Airway patent Yes 01/06/25 16:59 PHOTOGRAPHY [email or web address].ABAR Spontaneous unlabored Yes 01/06/25 16:59 PHOTOGRAPHY ASSISTANT.ABAR respirations Mental status Awake,Calm 01/06/25 16:59 PHOTOGRAPHY ASSISTANT.ABAR nausea No 01/06/25 16:59 PHOTOGRAPHY ASSISTANT.ABAR Vomiting No 01/06/25 16:59 PHOTOGRAPHY ASSISTANT.ABAR Anesthesia Postop Eval I: Fluid Summary Crystalloid volume administer 100 01/06/25 16:59 PHOTOGRAPHY ASSISTANT.ABAR (ml) Colloids volume administered ( ml) Blood Product volume administered (ml) Total IV fluid infused 100 01/06/25 16:59 PHOTOGRAPHY ASSISTANT.ABAR Anesthesia Postop Eval I: Summary Notes Anesthesia Complication No 01/06/25 16:59 PHOTOGRAPHY ASSISTANT.ABAR Anesthesia Complication Comment: Post-operative progress note Anesthesia: Postop Eval II Evaluation Mental status: Awake and Confused Pain Level: 1 nausea: No Vomiting: No Progress Note Post-operative progress note: Patient with significant upper respiratory noise secondary to patient inability to clear his secretions. (This was the original problem and why he is unable to swallow and eat food). Saturations slowly drifted to 91% even on 8 L nasal cannula. Respiratory was requested to do deep suctioning. The upper airway noise did improve. A simple facemask was applied and the saturations did improve to 97%. Dr. Guerin updated to patient's current conditions. Patient transferred back to [facility] with oxygen. 01/06/251803 <Electronically signed by Segun corbett MD> Date _ Segun Patel MD Cosigner Signature: Date CC: ~ Signed [facility] Work Phone: [phone]) [phone] Consult note Author Roman [facility] Note Date/Time January 06, 2025 4:59 pm [facility] Medical Records Department [address] [place] [address] Anesthesia Postop Eval I 01/06/251657 MR#: [id number] Acct: [id number] Name: PEDRO PABLO SIERRA Rep #:[id number] : 1950 74 From: Roman reaves CRNA PCP: Dr. Lorraine Mena MD Status:A DM IN Y Race: C Location: [place] [address] 06-19 Anesthesia: Postop Eval I Current Vital Signs Temperature: 97.8 F Pulse Rate: 115 Blood Pressure: 131/72 Respiratory Rate: 25 Pulse Ox: 100 Oxygen Delivery Method: Venturi Mask Oxygen Flow Rate (L/min): 8 Assessment Airway patent: Yes Spontaneous unlabored respirations: Yes Mental status: Awake and Calm nausea: No Vomiting: No Anesthesia Complication: No Fluid Hydration Crystalloid volume administer (ml): 100 Total IV fluid infused: 100 Progress Note Anesthesia document: Postop Eval 1 completed: Yes 01/06/251658 <Electronically signed by Roman Greene PHOTOGRAPHY ASSISTANT> Date _ Roman Holland PHOTOGRAPHY ASSISTANT Cosigner Signature: Date CC: ~ Signed [facility] Work Phone: 1(510) 443-168707-21-2025 Consult note Author Segun Patel [facility] Note Date/Time January 06, 2025 3:58 pm [facility] Medical Records Department [address] [place] [address] Pre-Anesthesia Evaluation 01/06/25 1542 MR#: [id number] Acct: [id number] Name: PEDRO PABLO SIERRA Rep #:[id number] : 1950 74 From: Segun Patel MD PCP: Dr. Lorraine Mena MD Status:A DM IN Y Race: C Location: [place] [address] ASA Classification* ASA Classification ASA Classification: 4 and E Assessment & Plan Anesthesia* Anesthesia Assessment Anesthesia [...] risk assessments. Anesthesia Type Anesthesia Type: MAC History Source History Obtained from:: Chart and Parent/ Guardian (Patient's ex- is the medical power of senior trial attorney (Joseph Burrell).) Anesthesia Focused Assessment* Temperature: 97.3 F Pulse Rate: 72 Blood Pressure: 166/83 Respiratory Rate: 25 Pulse Ox: 95 Oxygen Delivery Method: Nasal Cannula Oxygen Flow Rate (L/min): 8 Fraction of Inspired Oxygen (FIO2): 35 Airway Assessment Mouth opens: 2 cm Mallampati Score: IV Teeth Condition: Missing (Multiple missing teeth. Remaining teeth are tight) Labs Anesthesia Preop lab: CBC WBC 12.0 K/mm3 (4.4-11.0) H 01/06/25 02:30 5 RBC 4.03 M/mm3 (4.6-6.2) L 01/06/25 02:30 01/06/25 Hgb 11.2 g/dL (13.0-16.5) L 01/06/25 02:30 5 Hct 35.8 % (40-54) L 01/06/25 02:30 01/06/25 Plt Count 385 K/mm3 (150-450) 01/06/25 02:30 01/06/25 CHEMISTRY Potassium 4.9 mmol/L (3.3-5.1) 01/06/25 02:30 01/06/25 Sodium 138 mmol/L (133-145) 01/06/25 02:30 01/06/25 Magnesium 2.1 mg/dL (1.5-2.2) 01/06/25 02:30 01/06/25 Phosphorus 3.2 mg/dL (2.7-4.5) 01/06/25 02:30 01/06/25 BUN 20 mg/dL (4-19) H 01/06/25 02:30 01/06/25 Creatinine 1.41 mg/dL (0.70-1.20) H 01/06/25 02:30 Glucose 111 mg/dL (70-99) H 01/06/25 02:30 01/06/25 POC Glucose 83 mg/dL (74-106) 02/20/24 17:14 02/20/24 TSH 3.380 uIU/mL (0.300-4.200) 12/17/24 16:00 0707/13 COAG PT 12.8 SECONDS (11.7-14.9) 12/17/24 16:00 Pre-Assessment Diagnosis/Proposed Procedure Planned Operative Procedure(s): EGD with PEG tube placement. 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 - optical instrument repairer: Anesthesia History - optical instrument repairer Hx Hospitalization Yes 08/08/20 16:59 Any Problems With Anesthesia No 12/23/24 09:15 Cholinesterase deficiency No 12/23/24 09:15 You/Your Family Experience No 12/23/24 09:15 fever (hyperthermia) with Relationship Recent Exposure to Contagious No 12/23/24 09:15 Disease Does patient have nerve No 12/23/24 09:15 stimulator Patient instructed to have device shut off --Does patient have Pacemaker or ICD? When Was Last Pacemaker Check QUESTION #4 FULL TEXT: You/Your Family Experience fever (hyperthermia) with Anesthesia Last Oral Intake Last Oral intake: Last Oral Intake NPO since Meds taken in AM with sips of water? Meds patient instructed to take am of surgery Any additional information?: Yes NPO since: 00:00 PONV PONV - optical instrument repairer: PONV - optical instrument repairer Female HX of Motion Sickness HX of N/V After Surgery Non-Smoker Duration of Surgery greater than 60 minutes Number of Risk Factors PONV Score Height & Weight Height & Weight: Anesthesia: Height & Weight Height 6 ft 01/06/25 08:50 Weight: 66.5 kg 01/06/25 08:50 Body Mass Index (BMI) 19.8 01/06/25 05:00 Respiratory Assessment Respiratory Assessment - optical instrument repairer: Respiratory Tract Infection Hx - optical instrument repairer Hx Respiratory Tract Infection No 12/23/24 09:15 Any additional information?: Yes Hx Respiratory Tract Infection: Yes History of Anesthesia Respiratory Infection details: Patient had an episode of aspiration pneumonia yesterday at the long term. Patient had to be put up to 10 L of oxygen on the Ventimask. He is currently on 8 L nasal cannula. STOP Sleep Apnea STOP Sleep Apnea - optical instrument repairer: STOP Sleep Apnea - optical instrument repairer Hx Hypertension Yes 01/05/25 14:48 Hx Sleep Apnea No 01/05/25 14:48 CPAP No 01/05/25 14:48 BIPAP No 01/05/25 14:48 Do you snore loudly (louder No 01/05/25 14:48 than talking or can be heard Do you often feel tired/ No 01/05/25 14:48 fatigued/ sleepy during daytime? Has anyone observed you stop No 01/05/25 14:48 breathing during sleep? STOP Results Negative 01/05/25 14:48 QUESTION #5 FULL TEXT : Do you snore loudly (louder than talking or can be heard through closed doors)? Tobacco Use History Tobacco Use History - optical instrument repairer: Tobacco Use History - optical instrument repairer Tobacco Use Cigarettes 12/26/24 04:00 Smoking Status Unknown if ever smoked 01/05/25 14:48 Hx Tobacco Use No: unknown 01/05/25 14:48 Years Smoking Packs Smoked per Day Smoking Cessation Date was Yes - quit smoking within 15 01/05/25 09:44 within the last 15 years years Hx Smoking Cessation Date Hx Smoking Cessation No 01/05/25 14:48 Counseling Hematologic Medial History Hematologic Hx - optical instrument repairer: Hematologic Medical Hx - clinical documentation specialist Hx of Blood Transfusion No 01/05/25 14:48 Hx of Transfusion in last 3 No 01/05/25 14:48 Months Date of Last Transfusion (if within last 3 months) Ever experience any problems No 01/05/25 14:48 with transfusion(s)? Specify any problems Hx of Preganancy in last 3 N/A 01/05/25 14:48 Months Nurse Filling Out Transfusion JNORRIS 01/05/25 14:48 & Questions: Date: 01/05/25 01/05/25 14:48 Time: 15:10 01/05/25 14:48 Patient unable to answer at this time (ie. confused, unrespo /Reproduction History /Reproductive History - optical instrument repairer: /Reproductive Hx- optical instrument repairer Hx Now Gestational Age (in weeks): EDC: Hx Hx Para Hx Section SAB No 11/27/21 05:25 Active Medications Active Medications: Current Medications Generic Name Dose Route Start Last Admin Trade Name Freq PRN Reason Stop Dose Admin Acetaminophen 650 mg 01/05/25 14:46 Acetaminophen 325 Mg Tablet GT Q6H PRN PRN Pain 1-10 Or Fever>100.7 Albuterol Sulfate 2.5 mg 01/05/25 14:46 Albuterol 2.5 Mg/3 Ml Vial.Neb. INHALATION Q4H PRN DYSPNEA/WHEEZING/SOB Albuterol/Ipratropium 3 ml 01/05/25 14:46 01/06/25 06:47 Ipratropium/Albuterol Sulfate 3 Ml Ampul.Neb INHALATION 3 ml Q6HWA.RT LEON Administration Amlodipine Besylate 10 mg 01/06/25 10:00 01/06/25 11:36 Amlodipine 10 Mg Tablet GT Not Given DAILY LEON Protocol Apixaban 5 mg 01/05/25 22:00 01/06/25 11:35 Apixaban 5 Mg Tablet GT Not Given BID LEON Atorvastatin Calcium 40 mg 01/06/25 22:00 Atorvastatin Calcium 40 Mg Tablet GT QHS LEON Carbamazepine 200 mg 01/05/25 14:46 01/06/25 14:28 Carbamazepine 200 Mg/10 Ml [facility] ([facility]) GT Not Given 4X/DAY LEON Cholecalciferol 50 mcg 01/06/25 10:00 01/06/25 11:36 Cholecalciferol (Vit D3) 25 Mcg Tablet (1,000 Units) GT Not Given DAILY LEON Clonidine HCl 0.2 mg 01/05/25 14:46 01/05/25 16:20 Clonidine Hcl 0.2 Mg Patch TD Not Given Q7D LEON Finasteride 5 mg 01/06/25 10:00 01/06/25 11:36 Finasteride 5 Mg Tablet GT Not Given DAILY LEON Gabapentin 100 mg 01/06/25 10:00 01/06/25 11:36 Gabapentin 100 Mg Capsule GT Not Given DAILY [facility] Hydralazine HCl 20 mg 01/05/25 13:49 01/06/25 12:06 Hydralazine 20 Mg/Ml Vial IV 20 mg Q4H PRN PRN Administration Hypertensive Emergency Protocol Hydralazine HCl 50 mg 01/05/25 22:00 01/06/25 14:28 Hydralazine 50 Mg Tablet GT Not Given TID LEON Protocol Sodium Chloride 1,000 mls @ 100 mls/hr 01/05/25 14:46 01/06/25 05:10 IV 01/06/25 20:45 100 mls/hr .Q10H LEON Administration Piperacillin Sod/Tazobactam 50 mls @ 12.5 mls/hr 01/05/25 22:00 01/06/25 14:28 Sod 3.375 gm/ Sodium Chloride IV 01/12/25 22:01 12.5 mls/hr Q8 LEON Administration Sodium Chloride 250 mls @ 15 mls/hr 01/05/25 15:14 IV .[id number] PRN Saline Flush Sodium Chloride 250 mls @ 15 mls/hr 01/05/25 15:14 IV .[id number] PRN Additional IVPB Infusion Sodium Chloride 1,000 mls @ 15 mls/hr 01/06/25 15:15 IV .Q48H LEON Losartan Potassium 100 mg 01/06/25 10:00 01/06/25 11:35 Losartan Potassium 100 Mg Tablet GT Not Given DAILY [facility] Protocol Melatonin 3 mg 01/05/25 14:46 Melatonin 3 Mg Tablet GT QHS PRN PRN Insomnia Metoprolol Tartrate 50 mg 01/05/25 22:00 01/06/25 11:35 Metoprolol Tartrate 50 Mg Tablet GT Not Given BID [facility] Protocol Mirtazapine 15 mg 01/05/25 22:00 01/05/25 19:50 Mirtazapine 15 Mg Tablet GT Not Given QHS LEON Ondansetron HCl 4 mg 01/05/25 14:46 Ondansetron 4 Mg/2 Ml Vial IV Q8H PRN PRN NAUSEA/VOMITING Prednisone 40 mg 01/06/25 08:00 01/06/25 07:27 Prednisone 20 Mg Tablet GT Not Given BREAKFAST LEON Sertraline HCl 100 mg 01/06/25 10:00 01/06/25 11:36 Sertraline 100 Mg Tablet GT Not Given DAILY [facility] Sodium Chloride 10 - 40 ml 01/05/25 15:14 01/05/25 15:46 0.9% Saline Lock 10 Ml Syringe IV 10 ml UD PRN Administration SALINE FLUSH Thiamine HCl 100 mg 01/06/25 08:00 01/06/25 07:27 Thiamine Hydrochloride 100 Mg Tablet GT Not Given BREAKFAST LEON PFSH Medical History Acute CVA (cerebrovascular accident) Aphasia [...] 50 mcg feeding tube DA BRANDON 12/24/24 01/05/25 Rx mcg (2,000 unit) tablet SUPPLEMENT 30 [...] Trailer 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 Smoking Status: Unknown if ever smoked alcohol intake: former details: Former alcoholic quit several years ago substance use type: does not use caffeine: Yes Type: coffee Number of servings: 3 Review of Systems (Anesthesia) ROS Narrative System reviewed and no additional complaints, except as documented. 01/06/25 1348 <Electronically signed by Segun corbett MD> Date _ [facility]: Date CC: ~ Signed [facility] Work Phone: 1(330) 439-423207-21-2025 Procedure [facility] 01-06-2025 Procedure [facility]07-21-2025 Radiology Diagnostic study [facility]07-20-2025 Consult note Author Paulino Henderson [facility] Note Date/Time January 05, 2025 7:50 pm [facility] Medical Records Department [address] [place] [id number] Consultation - GI 01/05/251945 MR#: [id number] Acct: [id number] Name: PEDRO PABLO SIERRA Rep #:[id number] : 1950 74 From: Paulino Henderson DO PCP: Dr. Lorraine Mena MD Status:A DM IN Location: [place] [address] HPI Consult Data Date of Consult: 01/05/25 HPI Narrative HPI Narrative: PEDRO PABLO SIERRA, is a 74-year-old male known to the GI service. He was recently admitted for acute CVA with severe dysarthria, right-sided facial droop. I was consulted on last hospitalization for PEG tube placement due to severe dysarthria and oropharyngeal dysphagia. He has history of hypertension, chronickidney disease, chronic normocytic anemia, PAF, hyperlipidemia, BPH with obstructive pathology, GERD, seizure disorder, tobacco abuse, obstructive sleep apnea with noncompliance, peripheral arterial disease, former alcoholic. Currently he pulled his PEG tube out and I was reconsulted in order to put the PEG tube back in. 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 Smoking Status: Unknown if ever smoked alcohol intake: former details: Former alcoholic quit several years ago substance use type: does not use caffeine: Yes Type: coffee Number of servings: 3 ROS ROS Narrative Unable to obtain patient is aphasic Physical Exam Narrative GENERAL: On a Ventimask HEENT: Atraumatic; normocephalic EYES; Anicteric, Normal Conjunctiva NECK; supple, normal thyroid, RESPIRATORY: Diminished to auscultation, bilateral rhonchi CARDIOVASCULAR: Regular S1 S2, GI: soft, normoactive bowel sounds, : No Renal angle tenderness; EXTREMITIES: No edema, no clubbing, MUSCULOSKELETAL: no muscle wasting NEURO: Awake; aphasic SKIN: No Rash PSYCH; Flat affect Const alert and no apparent distress GI normal to inspection, nondistended, normoactive bowel sounds, soft to palpation,non-tender and non-distended Percussion: normal to percussion Rectal Exam: deferred Lab / Micro Data 01/05/25 09:45 01/05/25 09:45 Labs: Laboratory Results - last 24 hr 01/05/25 09:45: WBC 10.2, RBC 4.53 L, Hgb 12.6 L, Hct 39.6 L, MCV 87.4, MCH 27.8, MCHC 31.8 L, RDW Std Deviation 48.0 H, RDW Coeff of Aly 15.1 H, Plt Count 462 H, MPV 9.8, Immature Gran % (Auto) 0.500, Neut % (Auto) 76.7 H, Lymph % (Auto) 14.2 L, Beaver % (Auto) 7.0, Eos % (Auto) 1.2, Baso % (Auto) 0.4, Absolute Neuts (auto) 7.8 H, Absolute Lymphs (auto) 1.45, Nucleated RBC % 0, Sodium 135, Potassium 4.3, Chloride 93 L, Carbon Dioxide 28.4, Anion Gap 14, BUN 24 H, Creatinine 1.25 H, Estim Creat Clear Calc 54.46, Est GFR (MDRD) Non-Af 60, BUN/Creatinine Ratio 18.8, Glucose 123 H, Lactic Acid 1.1, Calcium 10.3, Total Bilirubin 0.25, AST 32, ALT 33, Alkaline Phosphatase 83, Total Protein 7.8, Albumin 4.6, Globulin 3.2, Albumin/Globulin Ratio 1.4 Micro: Microbiology 01/05/25 15:40 Mucosa - Nasopharyngeal Coronavirus COVID-19 PCR - Final 01/05/25 15:40 Mucosa - Nasopharyngeal Respiratory Panel (PCR) - Final 01/05/25 16:36 Urine, Clean Catch Legionella Antigen - Final 01/05/25 16:36 Urine, Clean Catch Streptococcus pneumoniae Antigen (M - Final ABG Data ABG results: ABG 01/05/25 13:14 Specimen Type ART Sample Site L Radial pH 7.45 Bicarbonate Actual 33.0 H Total CO2 35 Base Excess 9 H O2 Saturation 88 L O2 % 6.0 ABG pCO2 47.9 H ABG pO2 52 L Mayuri Test Positive O2 Delivery Device Cannula Vent Mode Not entered Imaging Radiology Impression Chest X-Ray 01/05/25 09:59 IMPRESSION: COPD. No acute findings. Reading Location: [id number] X-Ray 01/05/25 13:02 IMPRESSION: A PEG tube tip is projected in the region of the stomach. Contrast material is identified within the stomach. There is no extravasation of the contrast. Reading Location: [id number] Assessment & Plan Assessment/Plan (1) PEG tube malfunction: PLAN: 74-year-old with multiple comorbidities who recently pulled his PEG tube out. We will take him for endoscopy tomorrow for PEG tube replacement. His bowel return was explained alternatives, benefits, risk including understanding bleeding, infection, sepsis, perforation, need for more surgery and . He will have an ASA of 3. Charges/Coding Visit Charges Inpatient E&M: 07202 Init Hosp L3 01/05/25 1950 <Electronically signed by Paulino Henderson DO> Cosigner Signature (if applicable): CC: Dr. Lorraine Mena MD~ Signed [facility] Work Phone: 1(260) 395-865507-20-2025 History and physical note Author Frankie Galindo [facility] Note Date/Time January 05, 2025 2:02 pm [facility] Medical Records Department [address] [place] [address] H&P Exam - Hospitalist 01/05/25 1336 MR#: [id number] Acct: [id number] Name: PEDRO PABLO SIERRA Rep #:[id number] : 1950 74 From: Frankie Galindo MD PCP: Dr. Lorraine Mena MD Status:A DM IN Location: [place] [id number] HPI - General General Date of Admission: 01/05/25 Date of Service: 01/05/25 Chief Complaint: Suspected PEG tomorrow found HPI Narrative PEDRO PABLO SIERRA, is a 74 M with recent diagnosis of acute left MCA CVA discharged to a assisted facility. Patient had a PEG tube placed on 12/24/2024. Patient was brought to the emergency department with suspicion of PEG tube malfunctioning. Patient underwent imaging studies in the ED his PEG tube was found to be functioning as designed. Patient was also noted to have elevated blood pressure and route to the hospital. Physical examination in the ED did reveal significant bilateral rhonchi. Patient also became hypoxic necessitatingpatient being placed on Ventimask suspicion of aspiration pneumonia was made. 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 Smoking Status: Former smoker alcohol intake: former details: Former alcoholic quit several years ago substance use type: does not use caffeine: Yes Type: coffee Number of servings: 3 ROS ROS Narrative Unable to obtain patient is aphasic Vital Signs Vital Signs Vital Signs: 01/05/25 09:38 01/05/25 10:37 01/05/25 11:00 Temperature 96.6 F L Temperature Source Temporal Pulse Rate 69 58 L Respiratory Rate 23 H 16 Blood Pressure 183/75 H 164/127 H 180/75 H Blood Pressure Mean 111 139 110 Pulse Ox 91 92 Oxygen Delivery Method Nasal Cannula Nasal Cannula Oxygen Flow Rate (L/min) 2 2 Fraction of Inspired Oxygen (FIO2) 01/05/25 11:27 01/05/25 11:34 01/05/25 11:40 Temperature Temperature Source Pulse Rate 58 L 57 L Respiratory Rate 20 H 19 H Blood Pressure 193/75 H Blood Pressure Mean 114 Pulse Ox 78 91 Oxygen Delivery Method Nasal Cannula Simple Mask Oxygen Flow Rate (L/min) 5 7 Fraction of Inspired Oxygen (FIO2) 01/05/25 11:47 01/05/25 12:24 01/05/25 13:27 Temperature Temperature Source Pulse Rate 78 79 97 Respiratory Rate 20 H 22 H 34 H Blood Pressure 182/68 H Blood Pressure Mean 106 Pulse Ox 93 93 Oxygen Delivery Method Nasal Cannula Oxygen Flow Rate (L/min) 5 Fraction of Inspired Oxygen (FIO2) 01/05/25 13:33 Temperature Temperature Source Pulse Rate Respiratory Rate Blood Pressure Blood Pressure Mean Pulse Ox 95 Oxygen Delivery Method Venturi Mask Oxygen Flow Rate (L/min) 10 Fraction of Inspired Oxygen (FIO2) 35 Weight Weight: 75.4 kg Body Mass Index (BMI) 22.5 Physical Exam Narrative GENERAL: On a Ventimask HEENT: Atraumatic; normocephalic EYES; Anicteric, Normal Conjunctiva NECK; supple, normal thyroid, RESPIRATORY: Diminished to auscultation, bilateral rhonchi CARDIOVASCULAR: Regular S1 S2, GI: soft, normoactive bowel sounds, : No Renal angle tenderness; EXTREMITIES: No edema, no clubbing, MUSCULOSKELETAL: no muscle wasting NEURO: Awake; aphasic SKIN: No Rash PSYCH; Flat affect Results Lab / Micro Data 01/05/25 09:45 01/05/25 09:45 Labs: Laboratory Results - last 24 hr 01/05/25 09:45: WBC 10.2, RBC 4.53 L, Hgb 12.6 L, Hct 39.6 L, MCV 87.4, MCH 27.8, MCHC 31.8 L, RDW Std Deviation 48.0 H, RDW Coeff of Aly 15.1 H, Plt Count 462 H, MPV 9.8, Immature Gran % (Auto) 0.500, Neut % (Auto) 76.7 H, Lymph % (Auto) 14.2 L, Beaver % (Auto) 7.0, Eos % (Auto) 1.2, Baso % (Auto) 0.4, Absolute Neuts (auto) 7.8 H, Absolute Lymphs (auto) 1.45, Nucleated RBC % 0, Sodium 135, Potassium 4.3, Chloride 93 L, Carbon Dioxide 28.4, Anion Gap 14, BUN 24 H, Creatinine 1.25 H, Estim Creat Clear Calc 54.46, Est GFR (MDRD) Non-Af 60, BUN/Creatinine Ratio 18.8, Glucose 123 H, Lactic Acid 1.1, Calcium 10.3, Total Bilirubin 0.25, AST 32, ALT 33, Alkaline Phosphatase 83, Total Protein 7.8, Albumin 4.6, Globulin 3.2, Albumin/Globulin Ratio 1.4 ABG Data ABG results: ABG 01/05/25 13:14 Specimen Type ART Sample Site L Radial pH 7.45 Bicarbonate Actual 33.0 H Total CO2 35 Base Excess 9 H O2 Saturation 88 L O2 % 6.0 ABG pCO2 47.9 H ABG pO2 52 L Mayuri Test Positive O2 Delivery Device Cannula Vent Mode Not entered Imaging Radiology Impression Chest X-Ray 01/05/25 09:59 IMPRESSION: COPD. No acute findings. Reading Location: [id number] X-Ray 01/05/25 13:02 IMPRESSION: A PEG tube tip is projected in the region of the stomach. Contrast material is identified within the stomach. There is no extravasation of the contrast. 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 Was also found to have elevated blood pressure. A clinical suspicion of aspiration pneumonia was made in the ED patient admitted to a monitored bed for subsequent management 1. Suspected aspiration pneumonia ? Admitted to a monitored bed patient started on antibiotic therapy?Zosyn. Did obtain sputum as well as blood cultures in addition to COVID and viral respiratory panel 3. Acute hypoxic respiratory failure ? Secondary to patient aspiration pneumonia. Patient had to be placed on Ventimask after his oxygen saturation was reported to be in the 70s. Oxygen currently being titrated to keep saturation greater than 90 3. 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 Paroxysmal atrial fibrillation ? Rate controlled on systemic anticoagulation with apixaban via PEG tube continue 5. Suspected PEG tube malfunction ? Imaging studies obtained in the ED did show A PEG tube tip is projected in theregion of the stomach. Contrast material is identified within the stomach. There is no extravasation of the contrast.. Patient PEG tube functioning as designed. Will resume tube feeding 6. COPD ? Did continue patient aerosol treatment as well as prednisone 7. Accelerated hypertension ? Patient blood pressure on admission was 193/75. Continue with home meds also added hydralazine as needed for systolic blood pressure greater than 160 8. Acute renal insufficiency ? Patient creatinine from 12/24/2024 was 0.98, creatinine on admission was 1.25 started on IV hydration. Repeat BMP ordered for a.m. 9. Dyslipidemia ?Patient is on statin therapy, continued at home dose 10. Seizure disorder ? Patient is on, monitor. Continue BPH with lower urinary obstructive symptoms - Patient treated with tamsulosin 12. Depression with anxiety ? Patient is on mirtazapine at night continue 13. DVT prophylaxis ? Currently on apixaban CODE STATUS from ECF documentation DNR CCA no intubation reordered Time spent in the patient's overall evaluation,decision-making process, review of diagnostic data, adjustment of management, discussion with other providers, nursing nursing and ancillary staff involved in patient's care documentation, 78 Minutes Charges/Coding Visit Charges Inpatient E&M: 90390 Init Hosp L3 01/05/25 1402 <Electronically signed by Frankie Galindo MD> Cosigner Signature (if applicable): CC: Dr. Frankie Galindo MD; Dr. Lorraine Mena MD~ Signed [facility] Work Phone: [phone]) 279-656207-20-2025 Discharge summary Author Fco Monroy [facility] Note Date/Time January 05, 2025 1:41 pm [facility] Medical Records Department [address] [place] [address] Emergency Department Summary 01/05/25 MR#: [id number] Acct: [id number] Name: PEDRO PABLO SIERRA Rep #:[id number] : 1950 74 From: Fco Monroy MD PCP: Dr. Lorraine Mena MD Status:R EG ER Location: ED HPI History of Present Illness Chief Complaint: Hypertension Detail of Chief Complaint: Patient repeats what I ask him. Informant: EMS and SNF (Concerned gastrostomy tube is displaced) Limited: other (Recent stroke with aphasia.) Onset/Context/Timing Onset: Today (According to EMS.) Context: - (Unable to determine/unknown) Timing: - (Unable to determine/unknown) Quality: Unknown Location: Reportedly GI Current Severity: Unable to determine Maximum Severity: Unable to determine Worsened by: Unknown Relieved by: Apparently nothing Associated Symptoms Associated Symptoms: Unknown Limited history Narrative Narrative: Patient is a 74-year-old male. He was admitted for acute CVA with severe dysarthria, right-sided facial droop. He has history of hypertension, chronic kidney disease, chronic normocytic anemia, PAF, hyperlipidemia, BPH with obstructive pathology, GERD, seizure disorder, tobacco abuse, obstructive sleep apnea with noncompliance, peripheral arterial disease, former alcoholic and is apparently full go. He per Dr. Shilpa Contreras's documentation wants his ex- to make his medical decisions. Reportedly patient was sent in because of malfunctioning gastrostomy tube. Fabrication Operator states he was sent in for hypertension. Apparently their blood pressure readings were elevated and reason the chief complaint is hypertension. Per the long term report to nursing staff he was sent in because of gastrostomy tube problems. Reading summary of care patient with history of COPD/asthma with chronic hypoxemic respiratory failure on 2 L by nasal cannula. There was no mention of aspiration or risks of aspiration. 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 Smoking Status: Former smoker alcohol intake: former details: Former alcoholic quit several years ago substance use type: does not use caffeine: Yes Type: coffee Number of servings: 3 ROS ROS ED Review of Systems ROS Unobtainable: due to mental status EXAM Physical Exam Const Vital Signs: 01/05/25 09:38 01/05/25 10:37 01/05/25 11:00 Temperature 96.6 F L Temperature Source Temporal Pulse Rate 69 58 L Respiratory Rate 23 H 16 Blood Pressure 183/75 H 164/127 H 180/75 H Blood Pressure Mean 111 139 110 Pulse Ox 91 92 Oxygen Delivery Method Nasal Cannula Nasal Cannula Oxygen Flow Rate (L/min) 2 2 Fraction of Inspired Oxygen (FIO2) 01/05/25 11:27 01/05/25 11:34 01/05/25 11:40 Temperature Temperature Source Pulse Rate 58 L 57 L Respiratory Rate 20 H 19 H Blood Pressure 193/75 H Blood Pressure Mean 114 Pulse Ox 78 91 Oxygen Delivery Method Nasal Cannula Simple Mask Oxygen Flow Rate (L/min) 5 7 Fraction of Inspired Oxygen (FIO2) 01/05/25 11:47 01/05/25 12:24 01/05/25 13:27 Temperature Temperature Source Pulse Rate 78 79 97 Respiratory Rate 20 H 22 H 34 H Blood Pressure 182/68 H Blood Pressure Mean 106 Pulse Ox 93 93 Oxygen Delivery Method Nasal Cannula Oxygen Flow Rate (L/min) 5 Fraction of Inspired Oxygen (FIO2) 01/05/25 13:33 Temperature Temperature Source Pulse Rate Respiratory Rate Blood Pressure Blood Pressure Mean Pulse Ox 95 Oxygen Delivery Method Venturi Mask Oxygen Flow Rate (L/min) 10 Fraction of Inspired Oxygen (FIO2) 35 Positive well developed and unkempt General Appearance ED: unkempt, well developed and pallor; Negative for cyanotic, diaphoretic or NAD HEENT Reports dry mucous membranes HEENT Narrative: Head is atraumatic and normocephalic. Ears are normal. Uvula midline. Posterior pharynx unremarkable. Reviewed Dr. Gato Patel's note and patient is blind in his right eye and this finding is not new. Mouth ED: Yes dry mucous membranes Mouth: dry mucous membranes Eyes EOMs intact bilaterally; Negative for PERRL Eyes Narrative: Right pupil is much larger than left. General Eye ED: Negative for pale conjunctiva or scleral icterus Neck no lymphadenopathy, supple and no JVD Chest Wall inspection of chest normal and palpation of chest normal Resp No normal respiratory effort and No clear to auscultation bilaterally Resp Narrative: There is Cardio regular rate, regular rhythm, S1 normal heart sound, S2 normal heart sound and no murmurs GI normal to inspection, nondistended, normoactive bowel sounds, non-tender, non-distended and no masses; Negative for hepatosplenomegaly GI Narrative: Gastrostomy tube is functional. Palpation: soft Extremity General Extremety ED: Yes edema General Extremity: edema Neuro No oriented x3 and No CN's II-XII intact bilaterally Sensorium / Orientation: Negative for alert Psych Psych Narrative: Patient repeats what I ask of him. Appearance: unkempt Skin no rashes or lesions noted and no wounds General Skin Exam: pallor; Negative for jaundice MDM MDM MDM Narrative Medical decision making narrative: Patient's gastrostomy tube is functional. Water is instilled without difficulty. The gastrostomy tube in my opinion is proper position and is functioning. There is no leakage around the tube. Because she has tachypnea rhonchi will obtain chest x- ray to assess for pneumonia and blood work to assessH&H renal function etc. History and physical is limited due to his abnormal level of consciousness. Since nurses state they cannot draw back any gastric fluid a KUB with contrast was obtained. The KUB reveals proper position. My opinion this is a positionalissue and not due to mouth placed gastrostomy tube. Or a displaced gastrostomy tube. Lab Data Attestation: I reviewed the patient's lab results. Lab results narrative: CBC reveals anemia with normal indices. Labs: Laboratory Results - last 24 hr 01/05/25 09:45 WBC 10.2 RBC 4.53 L Hgb 12.6 L Hct 39.6 L MCV 87.4 MCH 27.8 MCHC 31.8 L RDW Std Deviation 48.0 H RDW Coeff of Aly 15.1 H Plt Count 462 H MPV 9.8 Immature Gran % (Auto) 0.500 Neut % (Auto) 76.7 H Lymph % (Auto) 14.2 L Beaver % (Auto) 7.0 Eos % (Auto) 1.2 Baso % (Auto) 0.4 Absolute Neuts (auto) 7.8 H Absolute Lymphs (auto) 1.45 Nucleated RBC % 0 Sodium 135 Potassium 4.3 Chloride 93 L Carbon Dioxide 28.4 Anion Gap 14 BUN 24 H Creatinine 1.25 H Estim Creat Clear Calc 54.46 Est GFR (MDRD) Non-Af 60 BUN/Creatinine Ratio 18.8 Glucose 123 H Lactic Acid 1.1 Calcium 10.3 Total Bilirubin 0.25 AST 32 ALT 33 Alkaline Phosphatase 83 Total Protein 7.8 Albumin 4.6 Globulin 3.2 Albumin/Globulin Ratio 1.4 ABG Data ABG results: ABG 01/05/25 13:14 Specimen Type ART Sample Site L Radial pH 7.45 Bicarbonate Actual 33.0 H Total CO2 35 Base Excess 9 H O2 Saturation 88 L O2 % 6.0 ABG pCO2 47.9 H ABG pO2 52 L Mayuri Test Positive O2 Delivery Device Cannula Vent Mode Not entered Radiography Chest X-Ray - ED: 1 View, Read by ED Physician (No acute process. Independent reviewed interpreted by me at 1017. Cardiac silhouette size normal. Lung parenchyma is normal. There is no infiltrate, effusion, pneumothorax or pneumoperitoneum. Hilum is unremarkable. Osseous structures reveal no acute process.) and - (Single view KUB reveals contrast in the stomach. This would indicate that the gastrostomy tube is in proper position. There is an implant reviewed interpreted by me at 1323.) Diagnostic Testing: Clinical Impression(s) from Imaging Studies Chest X-Ray 01/05/25 09:59 IMPRESSION: COPD. No acute findings. Reading Location: [id number] X-Ray 01/05/25 13:02 IMPRESSION: A PEG tube tip is projected in the region of the stomach. Contrast material is identified within the stomach. There is no extravasation of the contrast. Reading Location: [id number] Radiology report was reviewed. Since there is no evidence of pneumonia and he is tachypneic with rhonchi and history of COPD he was treated with DuoNeb and albuterol. Management Discussion w/another healthcare provider: Hospitalist (Case discussed with Dr. Fitzgerald the hospitalist. Full admit PCU for respiratory failure due to aspiration) Discharge Plan Triage Chief Complaint: Hypertension ED Provider: Fco Monroy Dx/Rx/DC Orders Clinical Impression: Acute and chronic respiratory failure with hypoxia, Current use of continuous churn buttermaker anticoagulation, CVA (cerebral vascular accident), COPD (chronic obstructive pulmonary disease), Hypertension, Aspiration into respiratory tract, Bronchospasm, acute Prescriptions: No Action atorvastatin 40 MG tablet [...] mg feeding tube BID Primary Care Provider: Lorraine Mena Referrals: Lorraine Mena MD [Primary Care Provider] - Print Language: [place] Disposition Disposition: Assisted Living What to do if you have Problems For any increased pain, shortness of breath, bleeding, nausea or vomiting, chestpain, or any unexpected problems, contact your Primary Care Provider. Call [facility] ([phone]) or report to the closest Emergency Room. Call 911 if necessary. 01/05/25 1341 <Electronically signed by Fco Monroy MD> Cosigner Signature (if applicable): CC: Dr. Lorraine Mena MD ~ Signed [facility] Work Phone: 1(366) 169-131407-20-2025 Discharge summary Author Fco Monroy [facility] Note Date/Time January 05, 2025 1:41 pm [facility] Medical Records Department [address] [place] [address] Emergency Department Summary 01/05/25 MR#: [id number] Acct: [id number] Name: PEDRO PABLO SIERRA Rep #:[id number] : 1950 74 From: Fco Monroy MD PCP: Dr. Lorraine Mena MD Status:R EG ER Location: ED HPI History of Present Illness Chief Complaint: Hypertension Detail of Chief Complaint: Patient repeats what I ask him. Informant: EMS and SNF (Concerned gastrostomy tube is displaced) Limited: other (Recent stroke with aphasia.) Onset/Context/Timing Onset: Today (According to EMS.) Context: - (Unable to determine/unknown) Timing: - (Unable to determine/unknown) Quality: Unknown Location: Reportedly GI Current Severity: Unable to determine Maximum Severity: Unable to determine Worsened by: Unknown Relieved by: Apparently nothing Associated Symptoms Associated Symptoms: Unknown Limited history Narrative Narrative: Patient is a 74-year-old male. He was admitted for acute CVA with severe dysarthria, right-sided facial droop. He has history of hypertension, chronic kidney disease, chronic normocytic anemia, PAF, hyperlipidemia, BPH with obstructive pathology, GERD, seizure disorder, tobacco abuse, obstructive sleep apnea with noncompliance, peripheral arterial disease, former alcoholic and is apparently full go. He per Dr. Shilpa Contreras's documentation wants his ex- to make his medical decisions. Reportedly patient was sent in because of malfunctioning gastrostomy tube. Fabrication Operator states he was sent in for hypertension. Apparently their blood pressure readings were elevated and reason the chief complaint is hypertension. Per the long term report to nursing staff he was sent in because of gastrostomy tube problems. Reading summary of care patient with history of COPD/asthma with chronic hypoxemic respiratory failure on 2 L by nasal cannula. There was no mention of aspiration or risks of aspiration. 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 Smoking Status: Former smoker alcohol intake: former details: Former alcoholic quit several years ago substance use type: does not use caffeine: Yes Type: coffee Number of servings: 3 ROS ROS ED Review of Systems ROS Unobtainable: due to mental status EXAM Physical Exam Const Vital Signs: 01/05/25 09:38 01/05/25 10:37 01/05/25 11:00 Temperature 96.6 F L Temperature Source Temporal Pulse Rate 69 58 L Respiratory Rate 23 H 16 Blood Pressure 183/75 H 164/127 H 180/75 H Blood Pressure Mean 111 139 110 Pulse Ox 91 92 Oxygen Delivery Method Nasal Cannula Nasal Cannula Oxygen Flow Rate (L/min) 2 2 Fraction of Inspired Oxygen (FIO2) 01/05/25 11:27 01/05/25 11:34 01/05/25 11:40 Temperature Temperature Source Pulse Rate 58 L 57 L Respiratory Rate 20 H 19 H Blood Pressure 193/75 H Blood Pressure Mean 114 Pulse Ox 78 91 Oxygen Delivery Method Nasal Cannula Simple Mask Oxygen Flow Rate (L/min) 5 7 Fraction of Inspired Oxygen (FIO2) 01/05/25 11:47 01/05/25 12:24 01/05/25 13:27 Temperature Temperature Source Pulse Rate 78 79 97 Respiratory Rate 20 H 22 H 34 H Blood Pressure 182/68 H Blood Pressure Mean 106 Pulse Ox 93 93 Oxygen Delivery Method Nasal Cannula Oxygen Flow Rate (L/min) 5 Fraction of Inspired Oxygen (FIO2) 01/05/25 13:33 Temperature Temperature Source Pulse Rate Respiratory Rate Blood Pressure Blood Pressure Mean Pulse Ox 95 Oxygen Delivery Method Venturi Mask Oxygen Flow Rate (L/min) 10 Fraction of Inspired Oxygen (FIO2) 35 Positive well developed and unkempt General Appearance ED: unkempt, well developed and pallor; Negative for cyanotic, diaphoretic or NAD HEENT Reports dry mucous membranes HEENT Narrative: Head is atraumatic and normocephalic. Ears are normal. Uvula midline. Posterior pharynx unremarkable. Reviewed Dr. Gato Patel's note and patient is blind in his right eye and this finding is not new. Mouth ED: Yes dry mucous membranes Mouth: dry mucous membranes Eyes EOMs intact bilaterally; Negative for PERRL Eyes Narrative: Right pupil is much larger than left. General Eye ED: Negative for pale conjunctiva or scleral icterus Neck no lymphadenopathy, supple and no JVD Chest Wall inspection of chest normal and palpation of chest normal Resp No normal respiratory effort and No clear to auscultation bilaterally Resp Narrative: There is Cardio regular rate, regular rhythm, S1 normal heart sound, S2 normal heart sound and no murmurs GI normal to inspection, nondistended, normoactive bowel sounds, non-tender, non-distended and no masses; Negative for hepatosplenomegaly GI Narrative: Gastrostomy tube is functional. Palpation: soft Extremity General Extremety ED: Yes edema General Extremity: edema Neuro No oriented x3 and No CN's II-XII intact bilaterally Sensorium / Orientation: Negative for alert Psych Psych Narrative: Patient repeats what I ask of him. Appearance: unkempt Skin no rashes or lesions noted and no wounds General Skin Exam: pallor; Negative for jaundice MDM MDM MDM Narrative Medical decision making narrative: Patient's gastrostomy tube is functional. Water is instilled without difficulty. The gastrostomy tube in my opinion is proper position and is functioning. There is no leakage around the tube. Because she has tachypnea rhonchi will obtain chest x- ray to assess for pneumonia and blood work to assessH&H renal function etc. History and physical is limited due to his abnormal level of consciousness. Since nurses state they cannot draw back any gastric fluid a KUB with contrast was obtained. The KUB reveals proper position. My opinion this is a positionalissue and not due to mouth placed gastrostomy tube. Or a displaced gastrostomy tube. Lab Data Attestation: I reviewed the patient's lab results. Lab results narrative: CBC reveals anemia with normal indices. Labs: Laboratory Results - last 24 hr 01/05/25 09:45 WBC 10.2 RBC 4.53 L Hgb 12.6 L Hct 39.6 L MCV 87.4 MCH 27.8 MCHC 31.8 L RDW Std Deviation 48.0 H RDW Coeff of Aly 15.1 H Plt Count 462 H MPV 9.8 Immature Gran % (Auto) 0.500 Neut % (Auto) 76.7 H Lymph % (Auto) 14.2 L Beaver % (Auto) 7.0 Eos % (Auto) 1.2 Baso % (Auto) 0.4 Absolute Neuts (auto) 7.8 H Absolute Lymphs (auto) 1.45 Nucleated RBC % 0 Sodium 135 Potassium 4.3 Chloride 93 L Carbon Dioxide 28.4 Anion Gap 14 BUN 24 H Creatinine 1.25 H Estim Creat Clear Calc 54.46 Est GFR (MDRD) Non-Af 60 BUN/Creatinine Ratio 18.8 Glucose 123 H Lactic Acid 1.1 Calcium 10.3 Total Bilirubin 0.25 AST 32 ALT 33 Alkaline Phosphatase 83 Total Protein 7.8 Albumin 4.6 Globulin 3.2 Albumin/Globulin Ratio 1.4 ABG Data ABG results: ABG 01/05/25 13:14 Specimen Type ART Sample Site L Radial pH 7.45 Bicarbonate Actual 33.0 H Total CO2 35 Base Excess 9 H O2 Saturation 88 L O2 % 6.0 ABG pCO2 47.9 H ABG pO2 52 L Mayuri Test Positive O2 Delivery Device Cannula Vent Mode Not entered Radiography Chest X-Ray - ED: 1 View, Read by ED Physician (No acute process. Independent reviewed interpreted by me at 1017. Cardiac silhouette size normal. Lung parenchyma is normal. There is no infiltrate, effusion, pneumothorax or pneumoperitoneum. Hilum is unremarkable. Osseous structures reveal no acute process.) and - (Single view KUB reveals contrast in the stomach. This would indicate that the gastrostomy tube is in proper position. There is an implant reviewed interpreted by me at 1323.) Diagnostic Testing: Clinical Impression(s) from Imaging Studies Chest X-Ray 01/05/25 09:59 IMPRESSION: COPD. No acute findings. Reading [facility] X-[facility] 01/05/25 13:02 IMPRESSION: A PEG tube tip is projected in the region of the stomach. Contrast material is identified within the stomach. There is no extravasation of the contrast. Reading Location: [facility] Radiology report was reviewed. Since there is no evidence of pneumonia and he is tachypneic with rhonchi and history of COPD he was treated with DuoNeb and albuterol. Management Discussion w/another healthcare provider: Hospitalist (Case discussed with Dr. Fitzgerald the hospitalist. Full admit PCU for respiratory failure due to aspiration) Discharge Plan Triage Chief Complaint: Hypertension ED Provider: Fco Monroy Dx/Rx/DC Orders Clinical Impression: Acute and chronic respiratory failure with hypoxia, Current use of penitentiary anticoagulation, CVA (cerebral vascular accident), COPD (chronic obstructive pulmonary disease), Hypertension, Aspiration into respiratory tract, Bronchospasm, acute Prescriptions: No Action atorvastatin 40 MG tablet [...] mg feeding tube BID Primary Care Provider: Lorraine Mena Referrals: Lorraine Mena MD [Primary Care Provider] - Print Language: Central African Disposition Disposition: Assisted Living What to do if you have Problems For any increased pain, shortness of breath, bleeding, nausea or vomiting, chestpain, or any unexpected problems, contact your Primary Care Provider. Call [facility] ([phone]) or report to the closest Emergency Room. Call 911 if necessary. 01/05/25 1341 <Electronically signed by Fco Monroy MD> Cosigner Signature (if applicable): CC: Dr. Lorraine Mena MD ~ Signed [facility] Work Phone: 1(469) 936-114007-20-2025 Radiology Diagnostic study [facility]07-20-2025 Radiology Diagnostic study [facility]-18-2025 Discharge summary Author Arnulfo Zhao [facility] Note Date/Time January 03, 2025 8:01 am [facility] Medical Records Department [address] [place] [address] Emergency Department Summary 01/03/25 MR#: [id number] Acct: [id number] Name: PEDRO PABLO SIERRA Rep #:[id number] : 1950 74 From: Arnulfo Zhao DO [...] with isopropanol, and inserted a replacement 20 Libyan gastrostomy tube with a 20 cc balloon [...] not ambulatory anyway and already in a long term. 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 alf states that this morning he fell out [...] further history based on his aphasia/mute status PFSH PFSH Medical History Acute CVA (cerebrovascular accident) Aphasia [...] is at his baseline mental status per long term. Nursing reported he fell out of bed [...] the patient's PEG tube is a 20 Libyan. Therefore we will obtain a similar size in the ER and attempt to replace the PEG tube at this time. The replacement of the PEG tube and imaging studies are still pending and therefore patient be signed out to Dr. Jauregui. I do feel that if all images arenegative patient will be safe to return to the long term once the PEG tube has been replaced. History & Record Review Discussion w/independent historian: EMS personnel Additional record(s) reviewed:: Prior inpatient record Discharge Plan Triage Chief Complaint: Fall ED Provider: Arnulfo Zhao Dx/Rx/DC Orders Clinical Impression: Accidental fall, PEG tube malfunction, Current use of penitentiary anticoagulation, CVA (cerebral vascular accident), COPD (chronic [...] PO BID pantoprazole [Protonix] 40 mg granules for susp in packet 40 mg PO DAILY hydralazine 25 mg Tablet 50 mg G-tube 3XD metoprolol tartrate 25 mg tablet 50 mg feeding tube BID Primary Care Provider: Daija Morton Referrals: Daija Morton MD [Primary Care Provider] - Print Language: [place] African What to do if you have Problems For any increased pain, shortness of breath, bleeding, nausea or vomiting, chestpain, or any unexpected problems, contact your Primary Care Provider. Call [facility] ([phone]) or report to the closest Emergency Room. Call 911 if necessary. 01/03/25 0658 <Electronically signed by Arnulfo Zhao DO> Cosigner Signature (if applicable): CC: Dr. Daija Morton MD ~ Signed [facility] Work Phone: 1(406) 514-761807-18-2025 Radiology Diagnostic study [facility]07-18-2025 Radiology Diagnostic study [facility]-18-2025 Radiology Diagnostic study [facility] 01-03-2025 Radiology Diagnostic study [facility]-10-2025 Discharge summary Author Shilpa Contreras [facility] Note Date/Time December 26, 2024 3:43 pm [facility] Medical Records Department [address] [place] [address] Discharge Summary 12/26/24 1533 MR#: [id number] Acct: [id number] Name: PEDRO PABLO SIERRA Rep #:[id number] : 1950 74 From: Shilpa Contreras MD PCP: Dr. Daija Morton MD Status:ADM I N Location: [place] [address] Providers Date of Admission: 12/18/24 Date of Discharge: 12/26/24 Primary Care Physician: Dr. Daija Morton MD Consultations 12/19/24 15:57 Consult: Gastroenterology Routine Consulting Provider: [facility] Reason for Consult: Dysphagia-PEG EMERGENT Consult: [...] he had reported lacking healthcare power of senior trial attorney and living will but had noted [...] s/p PEG placement with following transition from CO ASA->eliquis, d/c IV keppra and resume liquid [...] 84.7 H, Lymph % (Auto) 6.5 L, Beaver % (Auto) 7.8, Eos % (Auto) 0.2, [...] continued nutrition consultation and evaluation at the assisted facility for ongoing assessments and alteration to [...] Privileges] - (Follow-up with Neurology, may see IT SECURITY CONSULTANT within 2-4 weeks of discharge.) Disposition Disposition (needs filled in before D/C Order can be placed): Senior Living Facility Charges/Coding Visit Charges Inpatient E&M: 62186 Disch Hosp >30min 12/26/24 1543 <Electronically signed by Shilpa Contreras MD> Cosigner Signature (if applicable): CC: Dr. Shilpa Contreras MD; Dr. Daija Morton MD~ Signed [facility] Work Phone: 1(749) 503-442807-10-2025 [facility]07-10-2025 Telephone encounter Note* Telephone Encounter - Anjel Braga APRN.CNP - 12/26/2024 3:13 PM EDT Admitted to hospital. Will review further at follow up. Anjel Braga APRN.CNP [facility]07-10-2025 Miscellaneous Notes* Telephone Encounter - Anjel Braga APRN.CNP - 12/26/2024 3:13 PM EDT Admitted to hospital. Will review further at follow up. nAjel Braga APRN.CNP [facility] Progress note Author Shilpa Contreras [facility] Note Date/Time December 26, 2024 12:3 1pm [facility] Medical Records Department [address] [place] [address] Progress Note - Hospitalist 12/26/24 0700 MR#: [id number] Acct: [id number] Name: ARIEL SIERRAMYRTLE Pierce Rep #:[id number] : 1950 74 From: Shilpa Contreras MD PCP: Dr. Daija Morton MD Status:ADM I N Location: [place] [address] Reason for Visit Reason for Visit: Diagnoses Cerebral infarction, unspecified (12/18/24) Facial weakness (12/18/24) Aphasia (12/18/24) Subjective Subjective Patient with no acute events overnight per nursing report. Blood pressure has vacillated but improved with initiation of low-dose hydralazine per PEG. Given continued clinical stability and at this point only awaiting assisted facility discussed with nursing staff and patient [...] s/p PEG placement with following transition from CO ASA->eliquis,d/c IV keppra and resume liquid carbamazepine, [...] he had reported lacking healthcare power of senior trial attorney and living will but had noted he would wanthis ex- Joseph be his medical decision-maker at that time if absolutely necessary. Full Code status. Charges/Coding Visit Charges Inpatient E&M: 15601 Subs Hosp L2 NIHSS NIHSS Nursing Documentation NIHSS Nursing Documentation: NIHSS: Ischemic Stroke/TIA Start: 12/17/24 18:52 Text: For PCU Patients: NIH and Neuro Check every 4 Status: Complete hours, PRN and with change in RN caregiver. Freq: Q12 Protocol: Activity Type Activity Date Activity User E-sign Co-sign Detail Recorded Client Recorded Date Recorded By Document 12/22/24 08:15 DS [id number] 12/22/24 08:19 DS 12/22/24 08:15 NIH Stroke [...] Cosigner Signature (if applicable): CC: ~ Signed [facility] Work Phone: 1(481) 523-181807-09-2025 Progress note Author Shilpa Contreras [facility] Note Date/Time December 25, 2024 1:49p m [facility] Medical Records Department [address] [place] [address] Progress Note - Hospitalist 12/25/24 0652 MR#: [id number] Acct: [id number] Name: PEDRO PABLO SIERRA Rep #:[id number] : 1950 74 From: Shilpa Contreras MD PCP: Dr. Daija Morton MD Status:ADM I N Location: [place] [address] Reason for Visit Reason for Visit: Diagnoses [...] 82.3 H, Lymph % (Auto) 8.0 L, Beaver % (Auto) 8.4, Eos % (Auto) 0.3, [...] s/p PEG placement with following transition from CO ASA->eliquis,d/c IV keppra and resume liquid carbamazepine, [...] he had reported lacking healthcare power of senior trial attorney and living will but had noted he would wanthis ex- Joseph be his medical decision-maker at that time if absolutely necessary. Full Code status. Charges/Coding Visit Charges Inpatient E&M: 18394 Subs Hosp L2 NIHSS NIHSS Nursing Documentation NIHSS Nursing Documentation: NIHSS: Ischemic Stroke/TIA Start: 12/17/24 18:52 Text: For PCU Patients: NIH and Neuro Check every 4 Status: Complete hours, PRN and with change in RN caregiver. Freq: Q12 Protocol: Activity Type Activity Date Activity User E-sign Co-sign Detail Recorded Client Recorded Date Recorded By Document 12/22/24 08:15 DS [id number] 12/22/24 08:19 DS 12/22/24 08:15 NIH Stroke [...] Cosigner Signature (if applicable): CC: ~ Signed [facility] Work Phone: 1(258) 808-368007-08-2025 Progress note Author Paulino Henderson [facility] Note Date/Time December 24, 2024 5:58p m [facility] Medical Records Department [address] [place] [address] Progress Note 12/24/24 1755 MR#: [id number] Acct: [id number] Name: PEDRO PABLO SIERRA Rep #:[id number] : 1950 74 From: Paulino Henderson DO PCP: Dr. Daija Morton MD Status:ADM I N Location: [place] [address] Progress Note Patient is still tolerating PEG [...] and anticoagulation therapy. Visit Charges Inpatient E&M: 87448 Subs Hosp L2 12/24/242 <Electronically signed by Paulino Henderson DO> Paulino Henderson DO Cosigner Signature (if applicable): CC: ~ Signed [facility] Work Phone: 1(401) 149-734907-08-2025 Discharge summary Author Shilpa Contreras [facility] Note Date/Time December 24, 2024 5:11p m [facility] Medical Records Department [address] [place] [address] Transfer to Extended Care MR#: [id number] Acct: [id number] Name: PEDRO PABLO SIERRA Rep #:[id number] : 1950 74 From: Shilpa Contreras MD PCP: Dr. Daija Morton MD Status:ADM I N Certification of patient admission REQUIRED AT TIME OF ADMISSION. I CERTIFY THAT POST-HOSPITAL ECF SERVICES ARE REQUIRED TO BE GIVEN ON AN IN-PATIENT BASIS BECAUSE OF THE ABOVE NAMED PATIENT'S NEED FOR SENIOR CARE CARE ON A CONTINUING BASIS FOR THE CONDITION(S) FOR WHICH HE/SHE WAS RECEIVINGIN-PATIENT HOSPITAL SERVICES PRIOR TO HIS/HER TRANSFER TO THE ECF. 12/24/24 1711<Electronically signed by Shilpa Contreras MD> [...] s/p PEG placement thus will transition from CO ASA->eliquis, d/c IV keppra and resume liquid [...] he had reported lacking healthcare power of senior trial attorney and living will but had noted [...] advanced diet as tolerated to cardiac per CONTINUOUS [employer] recommendations. 2. Will order to start at [...] continued nutrition consultation and evaluation at the assisted facility for ongoing assessments and alteration to [...] Privileges] - (Follow-up with Neurology, may see IT SECURITY CONSULTANT within 2-4 weeks of discharge.) Disposition Disposition (needs filled in before D/C Order can be placed): Senior Living Facility 12/24/24 1711 <Electronically signed by Shilpa Contreras MD> Cosigner Signature (if applicable): CC: Daylin Schmitt; Gogo Gill MD; Chrystal Collier MD; Dr. Paul Yang MD;Dr. Roman Patel DO; Dr. Aung Peres MD; Dr. Daija Morton MD; Dr. Ryan Vargas MD; Dr. Lisha Talamantes DO; Jo Hughes MD; Luan Mcgraw MD; DO Kerri; Angelo Wiley MD; Neelam Almendarez DO ~ [facility] Work Phone: 1(910) 712-377207-08-2025 Progress note Author Maya Talamantes [facility] Note Date/Time December 24, 2024 2:56p m [facility] Medical Records Department [address] [place] [address] Progress Note - Neurology 12/24/24 1451 MR#: [id number] Acct: [id number] Name: PEDRO PABLO SIERRA Rep #:[id number] : 1950 74 From: Myaa Talamantes MD PCP: Dr. Daija Morton MD Status:ADM I N Location: [place] [address] Objective Data Objective Data Vital Signs: Vital [...] 82.4 H, Lymph % (Auto) 8.5 L, Beaver % (Auto) 7.7, Eos % (Auto) 0.4, [...] on keppra, PVD, and CDwho presented to [facility] ED on 12/17/2024 with dysarthria and [...] bc patient does not cooperate- swats the pre sales technical consultant away. Neurological examination limited by decreased mental [...] Date Recorded By Document 12/22/24 08:15 DS [id number] 12/22/24 08:19 DS 12/22/24 08:15 NIH Stroke [...] Inattention: 0 - No abnormality Total: 12/24/24 7204 <Electronically signed by Maya Talamantes MD> Cosigner Signature (if applicable): CC: ~ Signed [facility] Work Phone: 1(282) 948-493407-08-2025 Progress note Author Shilpa Contreras [facility] Note Date/Time December 24, 2024 2:46p m [facility] Medical Records Department [address] [place] [address] Progress Note - Hospitalist 12/24/24705 MR#: [id number] Acct: [id number] Name: PEDRO PABLO SIERRA Rep #:[id number] : 1950 74 From: Shilpa Contreras MD PCP: Dr. Daija Morton MD Status:ADM I N Location: [place] [address] Reason for Visit Reason for Visit: Diagnoses [...] 82.4 H, Lymph % (Auto) 8.5 L, Beaver % (Auto) 7.7, Eos % (Auto) 0.4, [...] s/p PEG placement thus will transition from CO ASA->eliquis, d/c IV keppra and resume liquid carbamazepine,transition to HTN regimen per PEG, addback statin per PEG. Awaiting assisted facility placement pre-CERT for transition as clinically [...] he had reported lacking healthcare power of senior trial attorney and living will but had noted he would wanthis ex- Joseph be his medical decision-maker at that time if absolutely necessary. Patient and daughter have been working with healthcare team closely and patient is maintained full code at this time. Charges/Coding Visit Charges Inpatient E&M: 09375 Subs Hosp L3 NIHSS NIHSS Nursing Documentation NIHSS Nursing Documentation: NIHSS: Ischemic Stroke/TIA Start: 12/17/24 18:52 Text: For PCU Patients: NIH and Neuro Check every 4 Status: Complete hours, PRN and with change in RN caregiver. Freq: Q12 Protocol: Activity Type Activity Date Activity User E-sign Co-sign Detail Recorded Client Recorded Date Recorded By Document 12/22/24 08:15 DS [id number] 12/22/24 08:19 DS 12/22/24 08:15 NIH Stroke [...] Cosigner Signature (if applicable): CC: ~ Signed [facility] Work Phone: 1(971) 165-494007-08-2025 Telephone encounter Note* Telephone Encounter - Daija Morton MD - 12/24/2024 2:09 PM EDT Noted. Daija Tripp MD [facility]07-08-2025 Miscellaneous Notes* Telephone Encounter - Daija [...] use. Kelly Zelaya RN [facility] Consult note Author Kyaw Borrego [facility] Note Date/Time December 23, 2024 3:51p m [facility] Medical Records Department [address] [place] [address] Anesthesia Postop Eval II 12/23/24 1551 MR#: [id number] Acct: [id number] Name: PEDRO PABLO SIERRA Rep #:[id number] : 1950 74 From: Kyaw Borrego MD PCP: Dr. Daija Morton MD Status:ADM I N Y Race: C Location: [place] [address] 1-1 Anesthesia Postop Eval I Sum Postop Eval Completion status Anesthesia document: Postop Eval 1 completed: Yes Anesthesia Postop Eval I Summary Anesthesia Postop Eval I Summary: Anesthesia Postop Eval I: Assessment Summary Airway patent Yes 12/23/24 15:30 PHOTOGRAPHY ASSISTANT.CSIR Spontaneous unlabored Yes 12/23/24 15:30 PHOTOGRAPHY ASSISTANT.CSIR respirations Mental status nausea No 12/23/24 15:30 PHOTOGRAPHY ASSISTANT.CSIR Vomiting No 12/23/24 15:30 PHOTOGRAPHY ASSISTANT.CSIR Anesthesia Postop Eval I: Fluid Summary Crystalloid volume administer 200 12/23/24 15:30 PHOTOGRAPHY ASSISTANT.CSIR (ml) Colloids volume administered ( ml) Blood Product volume administered (ml) Total IV fluid infused 200 12/23/24 15:30 PHOTOGRAPHY ASSISTANT.CSIR Anesthesia Postop Eval I: Summary Notes Anesthesia Complication No 12/23/24 15:30 PHOTOGRAPHY ASSISTANT.CSIR Anesthesia Complication Comment: Post-operative progress note Anesthesia: Postop Eval II Evaluation Mental status: Awake Pain Level: 0 nausea: No Vomiting: No 12/23/24 1551 <Electronically signed by Kyaw Borrego MD > Date _ Kyaw Vanessa Signature: Date CC: ~ Signed [facility] Work Phone: 1(856) 824-930907-07-2025 Consult note Author Rocío Barrios [facility] Note Date/Time December 23, 2024 3:32p [facility] Medical Records Department [address] [facility] [place] [address] Anesthesia Postop Eval I 12/23/24 1530 MR#: [id number] Acct: [id number] Name: PEDRO PABLO SIERRA Rep #:[id number] : 1950 74 From: Rocío Barrios CRNA PCP: Dr. Daija Morton MD Status:ADM I N Y Race: C Location: [place] [address] 06-19 Anesthesia: Postop Eval I Current Vital [...] 12/23/24 1532 <Electronically signed by Rocío smith PHOTOGRAPHY ASSISTANT> Date _ Rocío Ramirezignandrea Signature: Date CC: ~ Signed [facility] Work Phone: 1(702) 584-698307-07-2025 Progress note Author Shilpa Contreras [facility] Note Date/Time December 23, 2024 3:24p m [facility] Medical Records Department [address] [place] [address] Progress Note - Hospitalist 12/23/2419 MR#: [id number] Acct: [id number] Name: PEDRO PABLO SIERRA Rep #:[id number] : 1950 74 From: Shilpa Contreras MD PCP: Dr. Daija Morton MD Status:ADM I N Location: [place] [address] Reason for Visit Reason for Visit: Diagnoses [...] Intake and Output for Last 24 Hours 0712/22/24 12/23/24 23:59 23:59 23:59 Intake Total 1625.0 [...] prophylaxis. Once patient requires PEG tube and assisted facility placement is pre-CERT obtained will transition [...] DVT prophylaxis: As noted currently maintained on CO aspirin therapy, planinitiation of Eliquis therapy following PEG tube placement likely 12/25/2019 5 AM. #17. CODE status: From previous discussions with patient he had reported lacking healthcare power of senior trial attorney and living will but had noted he would wanthis ex- Joseph be his medical decision-maker at that time if absolutely necessary. Patient and daughter have been working with healthcare team closely and patient is maintained full code at this time. Charges/Coding Visit Charges Inpatient E&M: 27703 Subs Hosp L3 NIHSS NIHSS Nursing Documentation NIHSS Nursing Documentation: NIHSS: Ischemic Stroke/TIA Start: 12/17/24 18:52 Text: For PCU Patients: NIH and Neuro Check every 4 Status: Complete hours, PRN and with change in RN caregiver. Freq: Q12 Protocol: Activity Type Activity Date Activity User E-sign Co-sign Detail Recorded Client Recorded Date Recorded By Document 12/22/24 08:15 DS [id number] 12/22/24 08:19 DS 12/22/24 08:15 NIH Stroke [...] 1524 <Electronically signed by Shilpa Contreras MD> Jamesign Signature (if applicable): CC: ~ Signed [facility] Work Phone: 1(136) 764-773907-07-2025 Procedure [facility] 12-23-2024 Procedure [facility]07-07-2025 Progress note Author Paulino Henderson [facility] Note Date/Time December 23, 2024 2:46p m [facility] Medical Records Department [address] [place] [address] Progress Note 12/23/245 MR#: [id number] Acct: [id number] Name: PEDRO PABLO SIERRA Rep #:[id number] : 1950 74 From: Paulino Henderson DO PCP: Dr. Daija Morton MD Status:ADM I N Location: [place] [address] Progress Note Patient with esophageal dysphagia. She [...] ASA of 3. Visit Charges Inpatient E&M: 94087 Subs Hosp L2 12/23/24 1446 <Electronically signed by Paulino Henderson DO> Paulino Friend DO Cosigner Signature (if applicable): CC: ~ Signed [facility] Work Phone: 1(772) 784-181707-07-2025 Consult note Author Kyaw Borrego [facility] Note Date/Time December 23, 2024 2:02p m [facility] Medical Records Department [address] [place] [address] Pre-Anesthesia Evaluation 12/23/24 1400 MR#: [id number] Acct: [id number] Name: PEDRO PABLO SIERRA Rep #:[id number] : 1950 74 From: Kyaw Borrego MD PCP: Dr. Daija Morton MD Status:ADM I N Y Race: C Location: [place] [address] 1-1 ASA Classification* ASA Classification ASA Classification: 3 [...] PEG placement. 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 - optical instrument repairer: Anesthesia History - optical instrument repairer Hx Hospitalization Yes 08/08/20 16:59 Any Problems [...] take am of surgery PONV PONV - optical instrument repairer: PONV - optical instrument repairer Female HX of Motion Sickness HX of N/V After Surgery Non-Smoker Duration of Surgery greater than 60 minutes Number of Risk Factors PONV Score Height & Weight Height & Weight: Anesthesia: Height & Weight Height 5 ft 8 in 12/23/24 09:50 Weight: 73 kg 12/23/24 09:50 Body Mass Index (BMI) 24.5 12/23/24 09:00 Respiratory Assessment Respiratory Assessment - optical instrument repairer: Respiratory Tract Infection Hx - optical instrument repairer Hx Respiratory Tract Infection No 12/23/24 09:15 STOP Sleep Apnea STOP Sleep Apnea - optical instrument repairer: STOP Sleep Apnea - optical instrument repairer Hx Hypertension Yes 12/23/24 09:06 Hx Sleep [...] Tobacco Use History Tobacco Use History - optical instrument repairer: Tobacco Use History - optical instrument repairer Tobacco Use Cigarettes 12/23/24 09:06 Smoking Status Current every day smoker 12/23/24 09:06 Hx Tobacco Use Yes 12/17/24 20:07 Years Smoking Packs Smoked per Day Smoking Cessation Date was within the last 15 years Hx Smoking Cessation Date Hx Smoking Cessation No 12/23/24 09:06 Counseling Hematologic Medial History Hematologic Hx - optical instrument repairer: Hematologic Medical Hx - clinical documentation specialist Hx of Blood Transfusion Hx of Transfusion in last 3 Months Date of Last Transfusion (if within last 3 months) Ever experience any problems with transfusion(s)? Specify any problems Hx of Preganancy in last 3 Months Nurse Filling Out Transfusion & Questions: Date: Time: Patient unable to answer at Yes 12/17/24 20:07 this time (ie. confused, unrespo /Reproduction History /Reproductive History - optical instrument repairer: /Reproductive Hx- optical instrument repairer Hx Now Gestational Age (in weeks): EDC: [...] mls @ 15 mls/hr 12/17/24 19:51 IV .[id number] PRN Saline Flush Sodium Chloride 250 mls @ 15 mls/hr 12/17/24 19:51 IV .[id number] PRN Additional IVPB Infusion Levetiracetam 1,000 mg in 100 mls @ 400 mls/hr 12/17/24 22:00 12/23/24 09:45 IV Infused Q12 LEON Infusion Pantoprazole Sodium 40 mg/ 100 mls @ 300 mls/hr 12/19/24 10:00 12/23/24 09:26 Sodium Chloride IV Infused Q24 LEON Infusion Lactated Ringer's 1,000 mls @ 75 mls/hr 12/18/24 15:30 12/23/24 13:10 IV 0 mls/hr .[id number] LEON Infusion Thiamine HCl 250 mg/ Sodium [...] Tamsulosin Hcl 0.4 Mg Capsule PO QHS [facility] Medical History Weakness Debility Failure to [...] mg capsule 100 mg PO DAILY PAIN 12/13/2 5 12/13/24 08:58 History nicotine 21 mg/24 [...] MD Cosigner Signature: Date CC: ~ Signed [facility] Work Phone: 1(861) 419-983607-07-2025 Hospital Discharge instructionsAdditional Instructions ADDITIONAL DISCHARGE INSTRUCTIONS/INFORMATION: [...] continued nutrition consultation and evaluation at the assisted facility for ongoing assessments and alteration to [...] which appears recent baseline. [facility]: [facility]: 1([phone]) 346-658707-06-2025 Progress note Author Lisha Talamantes [facility] Note Date/Time December 22, 2024 3:35p m [facility] Medical Records Department [address] [place] [address] Progress Note - Hospitalist 12/22/24 1534 MR#: [id number] Acct: [id number] Name: PEDRO PABLO SIERRA Rep #:[id number] : 1950 74 From: Lisha Taalmantes DO PCP: Dr. Daija Morton MD Status:ADM I N Location: [place] [address] Hospitalist Note Extensive conversation with POA's at [...] Cosigner Signature (if applicable): CC: ~ Signed [facility] Work Phone: 1([phone]) 310-824607-06-2025 Progress note Author Lisha Talamantes [facility] Note Date/Time December 22, 2024 1:13p m [facility] Medical Records Department [address] [place] [address] Progress Note - Hospitalist 12/22/24 0733 MR#: [id number] Acct: [id number] Name: PEDRO PABLO SIERRA Rep #:[id number] : 1950 74 From: Lisha Talamantes DO PCP: Dr. Daija Morton MD Status:ADM I N Location: [place] [address] Reason for Visit Reason for Visit: facial [...] Full code Charges/Coding Visit Charges Inpatient E&M: 89041 Subs Hosp L2 NIHSS NIHSS Nursing Documentation NIHSS Nursing Documentation: NIHSS: Ischemic Stroke/TIA Start: 12/17/24 18:52 Text: For PCU Patients: NIH and Neuro Check every 4 Status: Active hours, PRN and with change in RN caregiver. Freq: Q12 Protocol: Activity Type Activity Date Activity User E-sign Co-sign Detail Recorded Client Recorded Date Recorded By Document 12/21/24 21:20 [id number] 12/21/24 21:19 12/21/24 21:20 NIH Stroke Scale [...] Cosigner Signature (if applicable): CC: ~ Signed [facility] Work Phone: 1(191) 272-938007-06-2025 Progress note Author Maya Talamantes [facility] Note Date/Time December 22, 2024 9:18a m [facility] Medical Records Department [address] [place] [address] Progress Note - Neurology 12/22/24913 MR#: [id number] Acct: [id number] Name: PEDRO PABLO SIERRA Rep #:[id number] : 1950 74 From: Maya Talamantes MD PCP: Dr. Daija Morton MD Status:ADM I N Location: [place] [address] Objective Data Objective Data Vital Signs: Vital [...] on keppra, PVD, and CDwho presented to [facility] ED on 12/17/2024 with dysarthria and [...] Continue daily anti-platelet med (Asa) for now. 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 [...] Date Recorded By Document 12/22/24 08:15 DS [id number] 12/22/24 08:19 DS 12/22/24 08:15 NIH Stroke [...] Cosigner Signature (if applicable): CC: ~ Signed [facility] Work Phone: [phone]) 801-533607-05-2025 Progress note Author Maya Talamantes [facility] Note Date/Time December 21, 2024 1:50p m [facility] Medical Records Department [address] [place] [address] Progress Note - Neurology 12/21/24 1336 MR#: [id number] Acct: [id number] Name: PEDRO PABLO SIERRA Rep #:[id number] : 1950 74 From: Maya Talamantes MD PCP: Dr. Daija Morton MD Status:ADM I N Location: [place] [address] Objective Data Objective Data Vital Signs: Vital [...] 75.1 H, Lymph % (Auto) 14.2 L, Beaver % (Auto) 8.5, Eos % (Auto) 1.2, [...] on keppra, PVD, and CDwho presented to [facility] ED on 12/17/2024 with dysarthria and [...] Continue daily anti-platelet med (Asa) for now. 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 [...] Date Recorded By Document 12/21/24 08:35 DS [id number] 12/21/24 11:09 DS 12/21/24 08:35 NIH Stroke [...] Cosigner Signature (if applicable): CC: ~ Signed [facility] Work Phone: [phone]) 606-332207-05-2025 Progress note Author Lisha Talamantes [facility] Note Date/Time December 21, 2024 1:11p m [facility] Medical Records Department [address] [place] [address] Progress Note - Hospitalist 12/21/24 1243 MR#: [id number] Acct: [id number] Name: PEDRO PABLO SIERRA Rep #:[id number] : 1950 74 From: Lisha Talamantes DO PCP: Dr. Daija Morton MD Status:ADM I N Location: [place] [address] Reason for Visit Reason for Visit: Aphasia/Facial [...] 75.1 H, Lymph % (Auto) 14.2 L, Beaver % (Auto) 8.5, Eos % (Auto) 1.2, [...] 12/19/24 10:00 Stool Enteric Bacteriology - Final 07/02/25 13:51 Stool Clostridioides difficile (PCR) - Final [...] Full code Charges/Coding Visit Charges Inpatient E&M: 85727 Subs Hosp L2 NIHSS NIHSS Nursing Documentation NIHSS Nursing Documentation: NIHSS: Ischemic Stroke/TIA Start: 12/17/24 18:52 Text: For PCU Patients: NIH and Neuro Check every 4 Status: Active hours, PRN and with change in RN caregiver. Freq: Q12 Protocol: Activity Type Activity Date Activity User E-sign Co-sign Detail Recorded Client Recorded Date Recorded By Document 12/21/24 08:35 DS [id number] 12/21/24 11:09 DS 12/21/24 08:35 NIH Stroke [...] Cosigner Signature (if applicable): CC: ~ Signed [facility] Work Phone: [phone]) 460-334307-04-2025 Progress note Author Lisha Talamantes [facility] Note Date/Time December 20, 2024 12:05 pm [facility] Medical Records Department [address] [place] [address] Progress Note - Hospitalist 12/20/24716 MR#: [id number] Acct: [id number] Name: PEDRO PABLO SIERRA Rep #:[id number] : 1950 74 From: Lisha Talamantes DO PCP: Dr. Daija Morton MD Status:ADM I N Location: [place] [address] Reason for Visit Reason for Visit: Difficulty [...] 79.1 H, Lymph % (Auto) 9.9 L, Beaver % (Auto) 8.5, Eos % (Auto) 1.2, [...] in the right maxillary sinus. Reading Location: [facility] Physical Exam Const alert, no apparent distress [...] Full code Charges/Coding Visit Charges Inpatient E&M: 75359 Subs Hosp L2 NIHSS NIHSS Nursing Documentation NIHSS Nursing Documentation: NIHSS: Ischemic Stroke/TIA Start: 12/17/24 18:52 Text: For PCU Patients: NIH and Neuro Check every 4 Status: Active hours, PRN and with change in RN caregiver. Freq: [id number] Protocol: Activity Type Activity Date Activity User E-sign Co-sign Detail Recorded Client Recorded Date Recorded By Document 12/20/24 05:53 MB [id number] 12/20/24 05:55 MB 12/20/24 05:53 NIH Stroke [...] Cosigner Signature (if applicable): CC: ~ Signed [facility] Work Phone: [phone] 167-775107-04-2025 Progress note Author René Reno [facility] Note Date/Time December 20, 2024 11:53 am [facility] Medical Records Department [address] [place] [address] Progress Note - Neurology 12/20/24 1107 MR#: [id number] Acct: [id number] Name: PEDRO PABLO SIERRA Rep #:[id number] : 1950 74 From: René Carson PCP: Dr. Daija Morton MD Status:ADM I N Location: [place] [address] Objective Data Objective Data Vital Signs: Vital [...] 79.1 H, Lymph % (Auto) 9.9 L, Beaver % (Auto) 8.5, Eos % (Auto) 1.2, [...] awaiting PEG tube on Monday, failed with CONTINUOUS PROCESS TANNER ROTARY DRUM. No NGT. EEG Results Procedure Details EEG [...] is controlled. Would prefer a DOAC for shelter AC. I would recommend re-evaluation of candiacy for AC despite the fall risk as the patient has an high risk of future embolic events ([id number] 10, HASBLED 4). His risk of a [...] goal <7, BP goal is 120/80 -recommend PT/OT/CONTINUOUS PROCESS TANNER ROTARY DRUM consult. Will likely need PEG. consider NGT for alterative access in the meantime #seizure -recommend routine EEG as his aphasia does seen to be out of proportion to his infarct burden. would want to ensure no NCSE -it appears he was switched from CBZ to keppra during this admission. Ok to continue keppra continuous churn buttermaker if tolerating without adverse effects or recurrent seizures. ] NIHSS NIHSS Nursing Documentation NIHSS Nursing Documentation: NIHSS: Ischemic Stroke/TIA Start: 12/17/24 18:52 Text: For PCU Patients: NIH and Neuro Check every 4 Status: Active hours, PRN and with change in RN caregiver. Freq: Q12 Protocol: Activity Type Activity Date Activity User E-sign Co-sign Detail Recorded Client Recorded Date Recorded By Document 12/20/24 09:41 [id number] 12/20/24 09:46 12/20/24 09:41 NIH Stroke Scale [...] Cosigner Signature (if applicable): cc: ~* Signed [facility] Work Phone: 1([phone]) 709-588007-03-2025 Progress note Author Lisha Talamantes [facility] Note Date/Time December 19, 2024 4:09p m [facility] Medical Records Department [address] [place] [address] Progress Note - Hospitalist 12/19/24 0810 MR#: [id number] Acct: [id number] Name: PEDRO PABLO SIERRA Rep #:[id number] : 1950 74 From: Lisha Talamantes DO PCP: Dr. Daija Morotn MD Status:ADM I N Location: [place] [address] Reason for Visit Reason for Visit: Difficulty [...] Intake and Output for Last 24 Hours 07/07/1312/18/24 12/19/24 23:59 23:59 23:59 Intake Total 1100 [...] 81.3 H, Lymph % (Auto) 9.0 L, Beaver % (Auto) 6.6, Eos % (Auto) 1.9, [...] Talamantes Referring Physician: Daija Morton Performed By: uSsie Sands, RDCS, RVT Brain MRI 12/18/24 17:46 [...] in the right maxillary sinus. Reading Location: [facility] Physical Exam Const alert, no apparent distress [...] Full code Charges/Coding Visit Charges Inpatient E&M: 85302 Subs Hosp L2 NIHSS NIHSS Nursing Documentation NIHSS Nursing Documentation: NIHSS: Ischemic Stroke/TIA Start: 12/17/24 18:52 Text: For PCU Patients: NIH and Neuro Check every 4 Status: Active hours, PRN and with change in RN caregiver. Freq: [id number] Protocol: Activity Type Activity Date Activity User E-sign Co-sign Detail Recorded Client Recorded Date Recorded By Document 12/19/24 07:15 [id number] 12/19/24 07:43 12/19/24 07:15 NIH Stroke Scale [...] Inappropriate [Total] -Coma Scale Total 13 12/19/24 1601 <Electronically signed by Lisha Talamantes DO> Cosigner Signature (if applicable): CC: ~ Signed [facility] Work Phone: 1([phone]) 301-229207-02-2025 Progress note Author Lisha Talamantes [facility] Note Date/Time December 18, 2024 2:59p m [facility] Medical Records Department [address] [place] [address] Progress Note - Hospitalist 12/18/24 1445 MR#: [id number] Acct: [id number] Name: PEDRO PABLO SIERRA Rep #:[id number] : 1950 74 From: Lisha Talamantes DO PCP: Dr. Daija Morton MD Status:ADM I NO Location: [place] [address] Reason for Visit Reason for Visit: Diagnoses [...] (Auto) 77.5 H, Lymph % (Auto) 12.1 L,Beaver % (Auto) 7.8, Eos % (Auto) 1.1, [...] on 12/17/2024 at 4:35 p.m. Reading Location: [id number] Head/Neck CTA 12/17/24 15:53 IMPRESSION: Right ICA stenosis of 75%. Left ICA stenosis of 50%. Additional atherosclerosis as above. Biapical pulmonary scarring and emphysema. Reading Location: [id number] Chest X-Ray 12/17/24 15:54 IMPRESSION: Hyperaerated lungs which can suggest COPD. Stable scarring. Reading Location: [id number] Echocardiogram 12/18/24 07:27 Interpretation Summary Technically difficult study With limited views. Overall LV systolic function within normal. The estimated ejection fraction is 55???60 %. Previous study in 2023 as well showed technically difficult study with overall normal LV systolic function. Ordering Physician: Lisha Talamantes Referring Physician: Daija Morton Performed By: Susie Sands, GABY, RVT Physical Exam Const alert, no apparent [...] Full code Charges/Coding Visit Charges Inpatient E&M: 94694 Subs Hosp L2 NIHSS NIHSS Nursing Documentation NIHSS Nursing Documentation: NIHSS: Ischemic Stroke/TIA Start: 12/17/24 18:52 Text: For PCU Patients: NIH and Neuro Check every 4 Status: Active hours, PRN and with change in RN caregiver. Freq: [id number] Protocol: Activity Type Activity Date Activity User E-sign Co-sign Detail Recorded Client Recorded Date Recorded By Document 12/18/24 13:40 [id number] 12/18/24 13:43 12/18/24 13:40 NIH Stroke Scale [...] e [Total] -Coma Scale Total 12 12/18/24 1459 <Electronically signed by Lisha Talamantes DO> Cosigner Signature (if applicable): CC: ~ Signed [facility] Work Phone: 1(759) 368-675107-02-2025 Consult note Author [facility] Note Date/Time December 18, 2024 1:13p m [facility] Medical Records Department [address] [place] [address] Consultation - Neurology 12/18/24 1249 MR#: [id number] Acct: [id number] Name: PEDRO PABLO SIERRA Rep #:[id number] : 1950 74 From: Amy Chun MD PCP: Dr. Daija Morton MD Status:ADM I NO Location: [place] [address] Assessment and Plan: Stroke Assessment/Plan PEDRO PABLO [...] HTN: Permissive HTN acutely and gradual normalization continuous churn buttermaker Speech and swallow evaluation PT, OT evaluation Thanks for consult. Please call with questions HPI Consult Data Date of Consult: 12/18/24 HPI Narrative HPI Narrative: PEDRO PABLO SIERRA, is a 74 M who presents who presented to [facility] on 12/17[facility]24 with dysarthria and right-sided facial [...] stenosis of 50%, no other acute findings. [facility] Medical History Weakness Debility Failure to [...] (Auto) 77.5 H, Lymph % (Auto) 12.1 L,Beaver % (Auto) 7.8, Eos % (Auto) 1.1, [...] on 12/17/2024 at 4:35 p.m. Reading Location: [id number] Head/Neck CTA 12/17/24 15:53 IMPRESSION: Right ICA stenosis of 75%. Left ICA stenosis of 50%. Additional atherosclerosis as above. Biapical pulmonary scarring and emphysema. Reading Location: [id number] Chest X-Ray 12/17/24 15:54 IMPRESSION: Hyperaerated lungs which can suggest COPD. Stable scarring. Reading Location: [id number] Active Medications Active Medications Active Medications: Current [...] (1,000 Units) PO Not Given DAILY LEON Clopidogrel Bisulfate 75 mg 12/18/24 10:00 12/18/24 09:52 Clopidogrel Bisulfate 75 Mg Tablet PO Not Given DAILY LEON Finasteride 5 mg 12/18/24 10:12/18/24 09:52 Finasteride 5 Mg Tablet PO Not Given DAILY LEON Gabapentin 100 mg 12/18/24 10:00 12/18/24 09:52 Gabapentin 100 Mg Capsule PO Not Given DAILY LEON Hydralazine HCl 5 mg 12/17/24 18:52 Hydralazine 20 Mg/Ml Vial IV 12/18/24 18:52 Q30M PRN maintain BP parameters with HR <60 Sodium Chloride 250 mls @ 15 mls/hr 12/17/24 19:51 IV .[id number] PRN Saline Flush Sodium Chloride 250 mls @ 15 mls/hr 12/17/24 19:51 IV .[id number] PRN Additional IVPB Infusion Levetiracetam 1,000 mg [...] 100 Mg Tablet PO Not Given DAILY [facility] Sodium Chloride 10 - 40 ml 12/17/24 19:51 12/18/24 10:33 0.9% Saline Lock 10 Ml Syringe IV 10 ml UD PRN Administration SALINE FLUSH Tamsulosin HCl 0.4 mg 12/18/24 22:00 Tamsulosin Hcl 0.4 Mg Capsule PO QHS [facility] NIHSS NIHSS Nursing Documentation NIHSS Nursing Documentation: NIHSS: Ischemic Stroke/TIA Start: 12/17/24 18:52 Text: For PCU Patients: NIH and Neuro Check every 4 Status: Active hours, PRN and with change in RN caregiver. Freq: [id number] Protocol: Activity Type Activity Date Activity User E-sign Co-sign Detail Recorded Client Recorded Date Recorded By Document 12/18/24 10:30 [id number] 12/18/24 10:48 12/18/24 10:30 NIH Stroke Scale [...] applicable): CC: Dr. Daija Morton MD~ Signed [facility] Work Phone: 1(718) 387-863507-01-2025 History and physical note Author Roman Patel [facility] Note Date/Time December 17, 2024 7:17p m [facility] Medical Records Department [address] [place] [address] H&P Exam - Hospitalist 12/17/24 1736 MR#: [id number] Acct: [id number] Name: PEDRO PABLO SIERRA Rep #:[id number] : 1950 74 From: Roman Dickerson andrea DO PCP: Dr. Daija Morton MD Status:ADM I NO Location: [place] [address] HPI - General General Date of Admission: 12/17/24 Date of Service: 12/17/24 Chief Complaint: Dysarthria and right-sided facial droop HPI Narrative PEDRO PABLO SIERRA, is a 74 M who presented to [facility] ED on 12/17/2024 with dysarthria and [...] time. Will be admitted for further management. [facility] Medical History Weakness Debility Failure to [...] 200 mg 200 mg PO Q12H SEIZURES 0311/0912/13/24 08:55 History tablet,extended release,12 hr cholecalciferol (vitamin [...] History household members: family housing: other details: Renu [...] (Auto) 77.5 H, Lymph % (Auto) 12.1 L,Beaver % (Auto) 7.8, Eos % (Auto) 1.1, [...] on 12/17/2024 at 4:35 p.m. Reading Location: [facility] Head/Neck CTA 12/17/24 15:53 IMPRESSION: Right ICA stenosis of 75%. Left ICA stenosis of 50%. Additional atherosclerosis as above. Biapical pulmonary scarring and emphysema. Reading Location: [id number] Chest X-Ray 12/17/24 15:54 IMPRESSION: Hyperaerated lungs which can suggest COPD. Stable scarring. Reading Location: [id number] Assessment & Plan Assessment/Plan (1) Acute CVA (cerebrovascular accident): PLAN: Plan Patient is a 74-year-old male who presented to [facility] ED on 12/17/2024 with strokelike symptoms. [...] 75 minutes. Charges/Coding Visit Charges Inpatient E&M: 44357 Init Hosp L3 12/17/241916 <Electronically signed by Roman Patel DO> Cosigner Signature (if applicable): CC: Dr. Roman Patel DO; Dr. Daija Morton MD~ Signed [facility] Work Phone: 1(907) 185-497207-01-2025 Discharge summary Author Seth Pritchard [facility] Note Date/Time December 17, 2024 5:41p m [facility] Medical Records Department [address] [place] [address] Emergency Department Summary 12/17/24 MR#: [id number] Acct: [id number] Name: PEDRO PABLO SIERRA Rep #:[id number] : 1950 74 From: Seth Pritchard DO [...] was around noon according to at home. [facility] Medical History Weakness Debility [...] 77.5 H Lymph % (Auto) 12.1 L Beaver % (Auto) 7.8 Eos % (Auto) 1.1 [...] on 12/17/2024 at 4:35 p.m. Reading Location: [id number] Head/Neck CTA 12/17/24 15:53 IMPRESSION: Right ICA stenosis of 75%. Left ICA stenosis of 50%. Additional atherosclerosis as above. Biapical pulmonary scarring and emphysema. Reading Location: [id number] Chest X-Ray 12/17/24 15:54 IMPRESSION: Hyperaerated lungs which can suggest COPD. Stable scarring. Reading Location: [id number] Discharge Plan Triage Chief Complaint: Stroke Alert [...] MD [Primary Care Provider] - Print Language: Central African Disposition Disposition: Acute Care Hospital [facility] What to do if you have Problems For any increased pain, shortness of breath, bleeding, nausea or vomiting, chestpain, or any unexpected problems, contact your Primary Care Provider. Call [facility] ([phone]) or report to the closest Emergency Room. Call 911 if necessary. 12/17/24 1741 <Electronically signed by Seth Pritchard DO> Cosigner Signature (if applicable): CC: Dr. Daija Morton MD ~ Signed [facility] Work Phone: 1(494) 311-543507-01-2025 Radiology Diagnostic study [facility]07-01-2025 Radiology Diagnostic study [facility] Work Phone: 1([phone]) 834-537207-01-2025 Radiology Diagnostic study [facility] [place]07-01-2025 Telephone encounter Note* Telephone Encounter - Kelly Zelaya RN - 12/17/2024 2:20 PM EDT Frank Lazcano [facility] Emergency Departmenttensusan called in to give an update on [...] would like to use. Kelly Zelaya RN [facility]07-01-2025 Discharge summary Author Seth Pritchard [facility] Note Date/Time December 17, 2024 5:41p m [facility] Medical Records Department [address] [place] [address] Emergency Department Summary 12/17/24 MR#: [id number] Acct: [id number] Name: PEDRO PABLO SIERRA Rep #:[id number] : 1950 74 From: Seth Pritchard DO [...] was around noon according to at home. [facility] Medical History Weakness Debility [...] 77.5 H Lymph % (Auto) 12.1 L Beaver % (Auto) 7.8 Eos % (Auto) 1.1 [...] on 12/17/2024 at 4:35 p.m. Reading Location: [id number] Head/Neck CTA 12/17/24 15:53 IMPRESSION: Right ICA stenosis of 75%. Left ICA stenosis of 50%. Additional atherosclerosis as above. Biapical pulmonary scarring and emphysema. Reading Location: [id number] Chest X-Ray 12/17/24 15:54 IMPRESSION: Hyperaerated lungs which can suggest COPD. Stable scarring. Reading Location: [id number] Discharge Plan Triage Chief Complaint: Stroke Alert ED Provider: Pritchard,Seth Dx/Rx/DC Orders Clinical Impression: Aphasia, COPD exacerbation, [...] MD [Primary Care Provider] - Print Language: Central African Disposition Disposition: Acute Care Hospital [facility] What to do if you have Problems For any increased pain, shortness of breath, bleeding, nausea or vomiting, chestpain, or any unexpected problems, contact your Primary Care Provider. Call [facility] ([phone]) or report to the closest Emergency Room. Call 911 if necessary. 12/17/24 1741 <Electronically signed by Seth Pritchard DO> Cosigner Signature (if applicable): CC: Dr. Daija Morton MD ~ Signed [facility] Work Phone: [phone]) 104-742906-30-2025 Discharge summary Author Lisha Talamantes [facility] Note Date/Time December 16, 2024 12:5 3pm [facility] Medical Records Department [address] [place] [address] Discharge Summary 12/16/24 1137 MR#: [id number] Acct: [id number] Name: PEDRO PABLO SIERRA Shannan Rep #:[id number] : 1950 74 From: Lisha Talamantes DO PCP: Dr. Daija Morton MD Status:ADM I N Location: [place] [address] Providers Date of Admission: 12/13/24 Date of [...] male who presented to the emergency departmentat [facility] on 12/13/2024 with shortness of breath and wheezing. He has a history of chronic hypoxic respiratory failure requiring 2 Lat baseline iusgvq-qrk-gfksb. Patient reported that about the last 2 days priorto presentation he had increasing fatigue, malaise, and severe wheezing with tightness in his chest. He feels that the heat is predisposing him to exacerbation of his COPD. He was recently raised from [facility] and has been at home. There are [...] Self Care Charges/Coding Visit Charges Inpatient E&M: 13801 Disch Hosp >30min 12/16/24 1253 <Electronically signed by Lisha Talamantes DO> Cosigner Signature (if applicable): CC: Dr. Daija Morton MD; Dr. Lisha Talamantes DO~ Signed [facility] Work Phone: 1(237) 596-902606-30-2025 Hospital Discharge instructionsAdditional Instructions 1. Avoid being out in the heat and humidity. Try to be in an air conditioned environment as much as possible. If you must go out try to do so in the am or pm Date of Discharge: 12/16/24[facility] Work Phone: 1(215) 414-195206-30-2025 [facility]06-30-2025 Telephone encounter Note* Telephone Encounter - Natalie [...] Natalie Flowers December 16, 2024 8:47 AM [facility]06-30-2025 Miscellaneous Notes* Telephone Encounter - Natalie [...] 16, 2024 8:47 AM documented in this encounterSalem [facility]06-29-2025 Progress note Author Lisha Talamantes [facility] Note Date/Time December 15, 2024 1:21 pm [facility] Medical Records Department [address] [place] [address] Progress Note - Hospitalist 12/15/24 0743 MR#: [id number] Acct: [id number] Name: PEDRO PABLO SIERRA Rep #:[id number] : 1950 74 From: Lisha Talamantes DO PCP: Dr. Daija Morton MD Status:ADM I N Location: [place] [address] Reason for Visit Reason for Visit: Shortness [...] 83.3 H, Lymph % (Auto) 9.8 L, Beaver % (Auto) 6.3, Eos % (Auto) 0.0, [...] Full code Charges/Coding Visit Charges Inpatient E&M: 16894 Subs Hosp L2 12/15/24 1321 <Electronically signed by Lisha Talamantes DO> Cosigner Signature (if applicable): CC: ~ Signed [facility] Work Phone: [phone]) 824-690806-28-2025 Progress note Author Lisha Talamantes [facility] Note Date/Time December 14, 2024 3:55 pm [facility] Medical Records Department [address] [place] [address] Progress Note - Hospitalist 12/14/24809 MR#: [id number] Acct: [id number] Name: PEDRO PABLO SIERRA Rep #:[id number] : 1950 74 From: Lisha Talamantes DO PCP: Dr. Daija Morton MD Status:ADM I N Location: [place] [address] Reason for Visit Reason for Visit: Shortness [...] Intake and Output for Last 24 Hours 06/12/13/24 12/14/24 23:59 23:59 23:59 Intake Total 250 [...] % (Auto) 67.3, Lymph % (Auto) 19.5, Beaver% (Auto) 8.9, Eos % (Auto) 3.0, Baso [...] 79.3 H, Lymph % (Auto) 15.0 L, Beaver % (Auto) 5.3, Eos % (Auto) 0.0, [...] significant change since last exam. Reading Location: [facility] Physical Exam Const alert, oriented x3, no [...] Full code Charges/Coding Visit Charges Inpatient E&M: 58477 Subs Hosp L2 12/14/24 1555 <Electronically signed by Lisha Talamantes DO> Cosigner Signature (if applicable): CC: ~ Signed [facility] Work Phone: 1([phone]) 974-976906-28-2025 History and physical note Author Shilpa Contreras [facility] Note Date/Time December 14, 2024 12:2 3am [facility] Medical Records Department [address] [place] [address] H&P Exam - Hospitalist 12/13/241948 MR#: [id number] Acct: [id number] Name: PEDRO PABLO SIERRA Rep #:[id number] : 1950 74 From: Shilpa Contreras MD PCP: Dr. Daija Morton MD Status:ADM I N Location: [place] [address] HPI - General General Date of Admission: [...] PJ, Tobacco use who presents to the [facility] ED on 12/13/2024 with history of [...] component requested ABG and will trial BiPAP. [facility] Medical History Weakness Debility Failure to [...] % (Auto) 67.3, Lymph % (Auto) 19.5, Beaver% (Auto) 8.9, Eos % (Auto) 3.0, Baso [...] significant change since last exam. Reading Location: [facility] Assessment & Plan Assessment/Plan (1) [...] PJ, Tobacco use who presents to the [facility] ED on 12/13/2024 with history of [...] Stage II per GFR trending: Admission BUN/Cr 12/.11,GFR 69, baseline renal function 1.1-1.2, repeat BMP [...] 0.9. #16. CODE status: Patient healthcare power senior trial attorney and living will are not in [...] 16 minutes. Charges/Coding Visit Charges Inpatient E&M: 98320 Init Hosp L3 Procedures Hospitalists Procedures: 64493 Advncd Care Plan 30 Min 12/13/242049 <Electronically [...] MD; Dr. Daija Morton MD ~* Signed [facility] Work Phone: 1(644) 427-466106-28-2025 Discharge summary Author Charis Walker [facility] Note Date/Time December 13, 2024 10:4 1pm [facility] Medical Records Department [address] [place] [address] Emergency Department Summary 12/13/24 MR#: [id number] Acct: [id number] Name: PEDRO PABLO SIERRA Rep #:[id number] : 1950 74 From: Charis Walker DO PCP: Dr. Daija Morton MD Status:ADM I N Location: [place] [address] HPI History of Present Illness Chief Complaint: [...] term for a time 1 week ago. [facility] Medical History Compression fx, [...] % (Auto) 67.3 Lymph % (Auto) 19.5 Beaver % (Auto) 8.9 Eos % (Auto) 3.0 [...] significant change since last exam. Reading Location: [facility] 1 view chest x-ray obtained [...] MD [Primary Care Provider] - Print Language: Central African Disposition Disposition: Acute Care Hospital [facility] What to do if you have Problems For any increased pain, shortness of breath, bleeding, nausea or vomiting, chestpain, or any unexpected problems, contact your Primary Care Provider. Call [facility] ([phone]) or report to the closest Emergency Room. Call 911 if necessary. 12/13/242240 <Electronically signed by Charis Walker DO> Cosigner Signature (if applicable): CC: Dr. Daija Morton MD ~ Signed [facility] Work Phone: 1(997) 907-786306-27-2025 Evaluation note* Diagnosis Onset Date Resolution Status [...] 2:58pm Facial droop deleted December 18 2:58pm [facility] Work Phone: 1(602) 268-347306-27-2025 Evaluation note* Diagnosis Onset Date Resolution Status [...] 2:58pm Facial droop deleted December 18 2:58pm Aspiration into respiratory tract acute January 05, 2025 1:36pm Bronchospasm, acute acute January 05, 2025 1:36pm [facility] Work Phone: 1([phone]) 555-654306-27-2025 Evaluation note* Diagnosis Onset Date Resolution Status [...] 2:58pm Facial droop deleted December 18 2:58pm Aspiration into respiratory tract acute January 05, 2025 1:36pm Bronchospasm, acute acute January 05, 2025 1:36pm CVA (cerebral vascular accident) acute January 05, 2025 1:36pm PEG tube malfunction acute January 05, 2025 1:36pm [facility] Work Phone: [phone] Evaluation note* Diagnosis Onset Date Resolution Status [...] 2:58pm Facial droop deleted December 18 2:58pm Aspiration into respiratory tract inactive January 05, 2025 1:36pm Bronchospasm, acute inactive January 05, 2025 1:36pm CVA (cerebral vascular accident) inactive January 05, 2025 1:36pm PEG tube malfunction inactive January 05, 2025 1:36pm [facility] [employer] [facility] Work Phone: [phone] Evaluation note* Diagnosis Onset Date Resolution Status [...] 2:58pm Facial droop deleted December 18 2:58pm Aspiration into respiratory tract inactive January 05, 2025 1:36pm Bronchospasm, acute inactive January 05, 2025 1:36pm CVA (cerebral vascular accident) inactive January 05, 2025 1:36pm PEG tube malfunction inactive January 05, 2025 1:36pm Carotid stenosis, bilateral acute January 21, 2025 8:48am Seizure disorder acute January 232024 10:27am [facility] [employer] [facility] Work Phone: [phone] Evaluation note* Diagnosis Onset Date Resolution Status Admit Date Acute on chronic respiratory failure with hypoxia and hypercapnia resolved December 13, 2024 8:07pm COPD exacerbation resolved December 132024 8:07pm Aphasia acute December 18, 2024 2:58pm Acute on chronic respiratory failure with hypoxia and hypercapnia resolved December 18, 2024 2 :58pm COPD exacerbation resolved December 2:58pm Acute CVA (cerebrovascular accident) inactive December 18, 2024 2 :58pm Hypertension inactive December 18 2:58pm Facial droop deleted December 18 2:58pm CVA (cerebral vascular accident) acu te January 05, 2025 1:36pm Aspiration into respiratory tract inactive January 05, 2025 1:36pm Bronchospasm, acute inactive January 05, 2025 1:36pm PEG tube malfunction inactive January 05, 2025 1:36pm Carotid stenosis, bilateral acute January 21, 2025 8:48am Aphasia acute January 23 10:27am Carotid stenosis, bilateral acute January 23, 2025 10:27am Current use of penitentiary anticoagulation acute January 23, 2025 10:27am CVA (cerebral vascular accident) acu te January 23, 2025 10:27am Debility acute January 23 10:27am History of atrial fibrillation acute January 23, 2025 10:27am Seizure disorder acute January 232024 10:27am Multiple falls inactive January 10:27am [facility] Work Phone: [phone] 103-419306-27-2025 History and physical note [facility] Medical Records Department [address] [place] [address] H&P Exam -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 [facility] and [facility] determinations about payee so that patient can be placedat [facility], further dispo pending this # [...] documentation, 36minutes Charges/Coding Visit Charges Inpatient E&M: 85857 Subs Hosp L2 08/30/24 1111 Cosigner Signature (if applicable): CC: ~ Signed [facility]03-13-2025 Progress note Author Celia Toribio [facility] Note Date/Time August 29, 2024 5:2 5pm [facility] Medical Records Department [address] [place] [address] Progress Note - Hospitalist 08/29/24 08 MR#: [id number] Acct: [id number] Name: PEDRO PABLO SIERRA Rep #:[id number] : 1950 74 From: Celia Toribio MD PCP: Dr. Daija Morton MD Status:ADM I N Location: [place] [address]-1 Reason for Visit Reason for Visit: Diagnoses [...] % (Auto) 59.8, Lymph % (Auto) 22.3, Beaver % (Auto) 8.0, Eos % (Auto) 8.2 [...] to thrive -Patient recently had been at [facility] and was discharged 08/20/2024 buthas [...] documentation, 35minutes Charges/Coding Visit Charges Inpatient E&M: 70485 Subs Hosp L2 08/29/24 1725 <Electronically signed by Celia Toribio MD> Cosigner Signature (if applicable): CC: ~ Signed [facility] Work Phone: 1(625) 868-977703-13-2025 Progress note [facility] Medical Records Department [address] [place] [address] Progress Note - Hospitalist 08/29/24 0805 MR#: [id number] Acct: [id number] Name: PEDRO PABLO SIERRA Rep #:[id number] : 1950 74 From: Celia Toribio MD PCP: Dr. Daija Morton MD Status:ADM I N Location: [place] [address] Reason for Visit Reason for Visit: Diagnoses [...] % (Auto) 59.8, Lymph % (Auto) 22.3, Beaver % (Auto) 8.0, Eos % (Auto) 8.2 [...] to thrive -Patient recently had been at [facility] and was discharged 08/20/2024 buthas [...] documentation, 35minutes Charges/Coding Visit Charges Inpatient E&M: 05131 Subs Hosp L2 08/29/24 8695 Cosigner Signature (if applicable): CC: ~ Signed [facility]03-12-2025 Progress note Author Celia Toribio [facility] Note Date/Time August 28, 2024 3:0 4pm [facility] Medical Records Department [address] [place] [address] Progress Note - Hospitalist 08/28/24 8354 MR#: [id number] Acct: [id number] Name: PEDRO PABLO SIERRA Rep #:[id number] : 1950 74 From: Celia Toribio MD PCP: Dr. Daija Morton MD Status:ADM I N Location: [place] BN697-6 Reason for Visit Reason for Visit: Diagnoses [...] % (Auto) 55.6, Lymph % (Auto) 23.4, Beaver % (Auto) 11.3 H, Eos % (Auto) [...] to thrive -Patient recently had been at [facility] and was discharged 08/20/2024 buthas [...] documentation, 35minutes Charges/Coding Visit Charges Inpatient E&M: 17373 Subs Hosp L2 08/28/24 1504 <Electronically signed by Celia Toribio MD> Cosigner Signature (if applicable): CC: ~ Signed [facility] Work Phone: 1(176) 809-445603-12-2025 Progress note [facility] Medical Records Department [address] [place] [address] Progress Note - Hospitalist 08/28/24 6875 MR#: [id number] Acct: [id number] Name: MARIELAPEDRO PABLO Rep #:[id number] : 1950 74 From: Celia Toribio MD PCP: Dr. Daija Morton MD Status:ADM I N Location: [place] DI635-9 Reason for Visit Reason for Visit: Diagnoses [...] % (Auto) 55.6, Lymph % (Auto) 23.4, Beaver % (Auto) 11.3 H, Eos % (Auto) [...] to thrive -Patient recently had been at [facility] and was discharged 08/20/2024 buthas [...] documentation, 35minutes Charges/Coding Visit Charges Inpatient E&M: 01041 Subs Hosp L2 08/28/24 1504 Cosigner Signature (if applicable): CC: ~ Signed [facility]03-11-2025 Evaluation note* Diagnosis Onset Date Resolution Status Admit Date Acute diarrhea acute August 6:22pm Debility acute August 27 6:22pm Weakness acute August 27 6:22pm 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 August 172024 6:22pm [facility] Work Phone: 1(140) 149-197003-11-2025 Evaluation note* Diagnosis Onset Date Resolution Status Admit Date Acute diarrhea resolved March 11th , 2025 6:22pm Debility inactive August 27 6:22pm Failure to thrive inactive August 172024 6:22pm Weakness inactive August 27 6:22pm [facility] Work Phone: 1(501) 822-227803-11-2025 Evaluation note* Diagnosis Onset Date Resolution Status Admit Date Acute diarrhea resolved August 6:22pm Debility inactive August 27 6:22pm Failure to thrive inactive August 172024 6:22pm Weakness inactive August 27 6:22pm COPD exacerbation chronic December 132024 8:07pm [facility] Work Phone: 1(172) 776-232003-11-2025 Evaluation note* Diagnosis Onset Date Resolution Status Admit Date Acute diarrhea resolved August 6:22pm Debility inactive August 27 6:22pm Failure to thrive inactive August 172024 6:22pm Weakness inactive August 27 6:22pm Acute on chronic respiratory failure with hypoxia and hypercapnia chronic December 13, 2024 8:07pm COPD exacerbation chronic December 132024 8:07pm [facility] Work Phone: 1(852) 178-590503-11-2025 Evaluation note* Diagnosis Onset Date Resolution Status [...] December 5:51pm Hypertension chronic December 17 5:51pm [facility] Work Phone: 1(496) 836-772003-11-2025 Evaluation note* Diagnosis Onset Date Resolution Status [...] 2 :58pm COPD exacerbation resolved December 2:58pm [facility] Work Phone: 1(489) 618-852803-11-2025 Progress note Author Celia Toribio [facility] Note Date/Time August 27, 2024 4:1 3pm [facility] Medical Records Department [address] [place] [address] Progress Note - Hospitalist 08/27/241612 MR#: [id number] Acct: [id number] Name: PEDRO PABLO SIERRA Rep #:[id number] : 1950 74 From: Celia Toribio MD PCP: Dr. Daija Morton MD Status:ADM I NO Location: [place] [address] Hospitalist Note Repeat hemoglobin actually improved, suspect that this was then margin of bladder, will DC FOBT 08/27/241612 <Electronically signed by Celia Toribio MD> Cosigner Signature (if applicable): CC: ~ Signed [facility] Work Phone: [phone] Progress note [facility] Medical Records Department [address] [place] [address] Progress Note - Hospitalist 08/27/24 1613 MR#: [id number] Acct: [id number] Name: PEDRO PABLO SIERRA R Rep #:[id number] : 1950 74 From: Celia Toribio MD PCP: Dr. Daija Morton MD Status:ADM I NO Location: [place] [address]-1 Hospitalist Note Repeat hemoglobin actually improved, suspect that this was then margin of bladder, will DC FOBT 08/27/24 1613 Cosigner Signature (if applicable): CC: ~ Signed [facility]03-11-2025 Progress note Author [facility] Note Date/Time August 27, 2024 1:3 2pm [facility] Medical Records Department [address] [place] [address] Progress Note - Hospitalist 08/27/24 1332 MR#: [id number] Acct: [id number] Name: PEDRO PABLO SIERRA R Rep #:[id number] : 1950 74 From: Celia Toribio MD PCP: Dr. Daija Morton MD Status:ADM I NO Location: [place] [address] Hospitalist Note UA abnormal and is suggestive of UTI and given this and patient suprapubic tenderness we will start patient on Rocephin and await urine culture 08/27/24 1332 <Electronically signed by Celia Toribio MD> Cosigner Signature (if applicable): CC: ~ Signed [facility] Work Phone: 1(368) 609-921903-11-2025 Progress note Author Celia [facility] Note Date/Time August 27, 2024 12: 52pm [facility] Medical Records Department [address] [place] [address] Progress Note - Hospitalist 08/27/24 0831 MR#: [id number] Acct: [id number] Name: PEDRO PABLO SIERRA Rep #:[id number] : 1950 74 From: Celia Toribio MD PCP: Dr. Daija Morton MD Status:ADM I NO Location: [place] [address] Reason for Visit Reason for Visit: Diagnoses [...] Neut % (Auto) 56.2, Lymph % (Auto) 23.0,Beaver % (Auto) 13.1 H, Eos % (Auto) [...] to thrive -Patient recently had been at [facility] and was discharged 08/20/2024 buthas [...] documentation, 36minutes Charges/Coding Visit Charges Inpatient E&M: 28077 Subs Hosp L2 08/27/24 1252 <Electronically signed by Celia Toribio MD> Cosigner Signature (if applicable): CC: ~ Signed [facility] Work Phone: 1(342) 847-488603-11-2025 Progress note [facility] Medical Records Department [address] [place] [address] Progress Note - Hospitalist 08/27/24 1332 MR#: [id number] Acct: [id number] Name: PEDRO PABLO SIERRA Rep #:[id number] : 1950 74 From: Celia Toribio MD PCP: Dr. Daija Morton MD Status:ADM I NO Location: [place] GM892-4 Hospitalist Note UA abnormal and is suggestive of UTI and given this and patient suprapubic tenderness we will startpatient on Rocephin and await urine culture 08/27/24 1332 Cosigner Signature (if applicable): CC: ~ Signed [facility]03-11-2025 Progress note [facility] Medical Records Department [address] [place] [address] Progress Note - Hospitalist 08/27/24 0831 MR#: [id number] Acct: [id number] Name: PEDRO PABLO SIERRA Rep #:[id number] : 1950 74 From: Celia Toribio MD PCP: Dr. Daija Morton MD Status:ADM I NO Location: [place] [address] Reason for Visit Reason for Visit: Diagnoses [...] Neut % (Auto) 56.2, Lymph % (Auto) 23.0,Beaver % (Auto) 13.1 H, Eos % (Auto) [...] to thrive -Patient recently had been at [facility] and was discharged 08/20/2024 buthas [...] documentation, 36minutes Charges/Coding Visit Charges Inpatient E&M: 70790 Subs Hosp L2 08/27/24 1252 Cosigner Signature (if applicable): CC: ~ Signed [facility]03-10-2025 Progress note Author Celia Toribio [facility] Note Date/Time August 26, 2024 4:5 4pm [facility] Medical Records Department [address] [place] [address] Progress Note - Hospitalist 08/26/24906 MR#: [id number] Acct: [id number] Name: PEDRO PABLO SIERRA Rep #:[id number] : 1950 74 From: Celia Toribio MD PCP: Dr. Daija Morton MD Status:ADM I NO Location: [place] SO281-1 Reason for Visit Reason for Visit: Diagnoses [...] 78.4 H, Lymph % (Auto) 10.3 L, Beaver % (Auto) 9.9, Eos % (Auto) 0.3, [...] % (Auto) 60.3, Lymph % (Auto) 19.8, Beaver% (Auto) 15.2 H, Eos % (Auto) 3.4, [...] IMPRESSION: No acute airspace abnormality. Reading Location: [facility] Physical Exam Narrative General: Alert, no [...] to thrive -Patient recently had been at [facility] and was discharged 08/20/2024 buthas [...] Toribio MD Charges/Coding Visit Charges Inpatient E&M: 57680 Subs Hosp L2 08/26/24 1654 <Electronically signed by Celia Toribio MD> Cosigner Signature (if applicable): CC: ~ Signed [facility] Work Phone: 1(649) 272-439003-10-2025 Progress note [facility] Medical Records Department [address] [place] [address] Progress Note - Hospitalist 08/26/24 09 MR#: [id number] Acct: [id number] Name: MARIELAPEDRO PABLO Rep #:[id number] : 1950 74 From: Celia Toribio MD PCP: Dr. Daija Morton MD Status:ADM I NO Location: [place] VH982-1 Reason for Visit Reason for Visit: Diagnoses [...] 78.4 H, Lymph % (Auto) 10.3 L, Beaver % (Auto) 9.9, Eos % (Auto) 0.3, [...] Neut %(Auto) 60.3, Lymph % (Auto) 19.8, Beaver% (Auto) 15.2 H, Eos % (Auto) 3.4, [...] IMPRESSION: No acute airspace abnormality. Reading Location: [facility] Physical Exam Narrative General: Alert, no [...] to thrive -Patient recently had been at [facility] and was discharged 08/20/2024 buthas [...] Toribio MD Charges/Coding Visit Charges Inpatient E&M: 44908 Rust Hosp L2 08/26/24 1655 Cosigner Signature (if applicable): CC: ~ Signed [facility]03-09-2025 History and physical note Author Lisha Talamantes [facility] Note Date/Time August 25, 2024 7:00 pm [facility] Medical Records Department [address] [place] [address] H&P Exam - Hospitalist 08/25/24 1820 MR#: [id number] Acct: [id number] Name: PEDRO PABLO SIERRA Rep #:[id number] : 1950 74 From: Lisha Talamantes DO PCP: Dr. Daija Morton MD Status:ADM I NO Location: [facility] NN092-3 HPI - General General Date of Admission: 08/25/24 Date of Service: 08/25/24 Chief Complaint: Diarrhea/generalized weakness HPI Narrative PEDRO PABLO SIERRA, is a 74 M who presented to the emergency department [facility] on 08/25/2024 with a chief complaint of generalized weakness and diarrhea. Patient had recently been at [facility] and was discharged about 5 [...] Chest x-ray is unremarkable for acute findings. [facility] Medical History Compression fx, lumbar spine [...] 78.4 H, Lymph % (Auto) 10.3 L, Beaver % (Auto) 9.9, Eos % (Auto) 0.3, [...] IMPRESSION: No acute airspace abnormality. Reading Location[facility] Assessment & Plan Assessment/Plan (1) Acute diarrhea: [...] the current livingenvironment -Was recently discharged from [facility] however patient wasadamant that he [...] need clarified Charges/Coding Visit Charges Inpatient E&M: 91814 Init Hosp L2 08/25/24 1900 <Electronically signed by Lisha Talamantes DO> Cosigner Signature (if applicable): CC: Dr. Daija Morton MD; Dr. Lisha Talamantes DO~ Signed [facility] Work Phone: 1(275) 537-961103-09-2025 Discharge summary Author Jaden Jauregui [facility] Note Date/Time August 25, 2024 6:15 pm [facility] Medical Records Department [address] [place] [address] Emergency Department Summary 08/25/24 MR#: [id number] Acct: [id number] Name: PEDRO PABLO SIERRA Rep #:[id number] : 1950 74 From: Jaden Jauregui MD [...] he has been in a long term [facility] when he arrived home 5 [...] of C. difficile he does not know. [facility] Medical History Compression fx, [...] 78.4 H Lymph % (Auto) 10.3 L Beaver % (Auto) 9.9 Eos % (Auto) 0.3 [...] IMPRESSION: No acute airspace abnormality. Reading Location: [facility] Management Discussion w/another healthcare provider: Hospitalist Discharge Plan Dx/Rx/DC Orders Clinical Impression: Debility, Acute diarrhea, Mild dehydration Disposition Disposition: [facility] What to do if you have Problems For any increased pain, shortness of breath, bleeding, nausea or vomiting, chestpain, or any unexpected problems, contact your Primary Care Provider. Call [facility] ([phone]) or report to the closest Emergency Room. Call 911 if necessary. 08/25/241814 <Electronically signed by Jaden Jauregui MD> Cosigner Signature (if applicable): CC: Dr. Daija Morton MD ~ Signed [facility] Work Phone: 1(340) 948-734103-09-2025 History and physical note [facility] Medical Records Department [address] [place] [address] H&P Exam - Hospitalist 08/25/24 1820 MR#: [id number] Acct: [id number] Name: ARIEL SIERRAMYRTLE Pierce Rep #:[id number] : 1950 74 From: Lisha Talamantes DO PCP: Dr. Daija Morton MD Status:ADM I NO Location: [facility] RO879-3 HPI - General General Date of Admission: 08/25/24 Date of Service: 08/25/24 Chief Complaint: Diarrhea/generalized weakness HPI Narrative PEDRO PABLO MARIELA, is a 74 M who presented to the emergency department [facility] on 08/25/2024 with a chief complaint of generalized weakness and diarrhea. Patient had recently been at [facility] and was discharged about 5 [...] Chest x-ray is unremarkable for acute findings. [facility] Medical History Compression fx, lumbar spine [...] 78.4 H, Lymph % (Auto) 10.3 L, Beaver % (Auto) 9.9, Eos % (Auto) 0.3, [...] IMPRESSION: No acute airspace abnormality. Reading Location: [facility] Assessment & Plan Assessment/Plan (1) Acute diarrhea: [...] the current livingenvironment -Was recently discharged from [facility] however patient wasadamant that he [...] need clarified Charges/Coding Visit Charges Inpatient E&M: 47239 Init Hosp L2 08/25/24 1900 Cosigner Signature (if applicable): CC: Dr. Daija Morton MD; Dr. Lisha Talamantes, DO~ Signed [facility]03-09-2025 Discharge summary [facility] Medical Records Department [address] [place] [address] Emergency Department Summary 08/25/24 MR#: [id number] Acct: [id number] Name: PEDRO PABLO SIERRA Rep #:[id number] : 1950 74 From: Jaden Jauregui MD [...] he has been in a long term [facility] when he arrived home 5 [...] of C. difficile he does not know. [facility] Medical History Compression fx, lumbar spine [...] 78.4 H Lymph % (Auto) 10.3 L Beaver % (Auto) 9.9 Eos % (Auto) 0.3 [...] Debility, Acute diarrhea, Mild dehydration Disposition Disposition: [facility] What to do if you have Problems For any increased pain, shortness of breath, bleeding, nausea or vomiting, chestpain, or any unexpected problems, contact your Primary Care Provider. Call [facility] ([phone]) or report tothe closest Emergency Room. Call 911 if necessary. 08/25/241814 Cosigner Signature (if applicable): CC: Dr. Daija Morton MD ~ Signed [facility]03-09-2025 Radiology Diagnostic study note [facility] Imaging Services [address] [place] [address] Chest 1 View (Portable) MR#: [id number] Acct: [id number] Name: PEDRO PABLO SIERRA Rep #: [id number] : 1950 M 74 From: Emigdio Lorenzo DO PCP: Dr. Daija Morton MD Status: PRE E R Study:Chest 1 View (Portable) Date of Exam: 08/25/24 Exam# [id number] Ordering Dr: Nevaeh Jauregui MD PROCEDURE: CHEST 1 VIEW (PORTABLE) REASON FOR EXAM: Weakness TECHNIQUE: Frontal view of the chest. COMPARISON: 04/06/2024 FINDINGS: Cardiomediastinal silhouette is within normal limits. Lungs are clear. No sizable pneumothorax. Emphysema. RAD/Chest 1 View (Portable) IMPRESSION: No acute airspace abnormality. Reading Location: [facility] CC: Dr. Jaden Jauregui MD; Dr. Daija Morton MD ~ Dial Screw Assembler: Signed [facility]03-09-2025 Discharge summary Author Jaden Jauregui [facility] Note Date/Time August 25, 2024 6:15 pm [facility] Medical Records Department [address] [place] [address] Emergency Department Summary 08/25/24 MR#: [id number] Acct: [id number] Name: PEDRO PABLO SIERRA Rep #:[id number] : 1950 74 From: Jaden Jauregui MD [...] he has been in a long term [facility] when he arrived home 5 [...] of C. difficile he does not know. [facility] Medical History Compression fx, [...] 78.4 H Lymph % (Auto) 10.3 L Beaver % (Auto) 9.9 Eos % (Auto) 0.3 [...] IMPRESSION: No acute airspace abnormality. Reading Location: [facility] Management Discussion w/another healthcare provider: Hospitalist Discharge Plan Dx/Rx/DC Orders Clinical Impression: Debility, Acute diarrhea, Mild dehydration Disposition Disposition: Acute Care Hospital [facility] What to do if you have Problems For any increased pain, shortness of breath, bleeding, nausea or vomiting, chestpain, or any unexpected problems, contact your Primary Care Provider. Call [facility] ([phone]) or report to the closest Emergency Room. Call 911 if necessary. 08/25/241814 <Electronically signed by Jaden Jauregui MD> Cosigner Signature (if applicable): CC: Dr. Daija Morton MD ~ Signed [facility] Work Phone: 1(408) 691-381011-29-2024 Telephone encounter Note* Telephone Encounter - Daija Morton MD - 05/17/2024 12:47 PM EST Noted and agree. RegardsDaija MD [facility]11-29-2024 Miscellaneous Notes* Telephone Encounter - Daija Morton MD - 05/17/2024 12:47 PM EST Noted and agree. RegardsDaija MD * Telephone Encounter - Saundra George RN - 05/17/2024 9:19 AM EST ELFEGO JIMENEZ (Joseph) calls to report that [facility] and he is not wanting to go back. Per previous TE, referred patient to the provider at the MI to discharge when patient is ready. Joseph feels they have enough family members to properly take care of patient at home. Per previous TE,instructed Joseph to contact the MI as they should be the ones to determine when patient is safe toreturn home. Joseph verbalizes understanding and is going to contact MI. Saundra George RN [facility]11-[facility] Telephone encounter Note * Telephone Encounter - Saundra George RN - 05/17/2024 9:19 AM EST ELFEGO JIMENEZ (Joseph) calls to report that [facility] and he is not wanting to go back. Per previous TE, referred patient to the provider at the [facility] to discharge when patient is ready. Joseph feels they have enough family members to properly take care of patient at home. Per previous TE,instructed Joseph to contact the MI as they should be the ones to determine when patient is safe toreturn home. Joseph verbalizes understanding and is going to contact MI. Saundra George RN [facility]11-21-2024 Telephone encounter Note* Telephone Encounter - Angela Roman LPN - 05/09/2024 10:06 AM EST Left 3rd message for patient to call office back, for updated Called [facility] and spoke to patients nurse Johnson, and left message for Michelle the patients daughter to call us back for updated information Angela Roman LPN May 09, 2024 10:06 AM [facility]11-21-2024 Miscellaneous Notes* Telephone Encounter - Angela Roman LPN - 05/09/2024 10:06 AM EST Left 3rd message for patient to call office back, for updated Called [facility] and spoke to patients nurse Johnson, and left message for Michelle the patients daughter to call us back for updated information Angela Roman LPN May 09, 2024 10:06 AM * Telephone Encounter - Angela Roman LPN - 05/02/2024 10:51 AM EST Left 2nd message for patient to call office for update. Angela MIEK Roman May 02, 2024 10:51 AM * Telephone [...] problems. I would recommend he stay at [facility] until the provider that is seeing him there feels comfortable with his discharge. Thank you Anjel Braga APRN.PANAMA HAT SMEARER * Telephone Encounter - Bessy Freed RN - 04/29/2024 2:52 PM EST Patient's daughter Michelle calls and states that patient has been at [facility] in Alzheimer/Dementia unit. Michelle was [...] advise, Bessy Freed RN [facility]11-[facility]24 Telephone encounter Note * Telephone Encounter - Angela Roman LPN - 05/02/2024 10:51 AM EST Left 2nd message for patient to call office for update. Angela Roman LPN May 02, 2024 10:51 AM [facility]11-11-2024 Telephone encounter Note* Telephone Encounter - Cristina Vizcaino MA - 04/29/2024 4:00 PM EST LM for Michelle to contact office to inform of the below. Cristina Vizcaino MA [facility]11-11-2024 Telephone encounter Note* Telephone Encounter - Anjel Braga APRN.CNP - 04/29/2024 3:45 PM EST Patient has not been seen in 5.5 months with multiple reports of memory issues, falls, compression fractures, behavioral issues, breaking laws with exposing himself, and many other problems. I would recommend he stay at [facility] until the provider that is seeing him there feels comfortable with his discharge. Thank you Anjel Braga APRN.ACE [facility]11-11-2024 Telephone encounter Note* Telephone Encounter - Bessy Freed RN - 04/29/2024 2:52 PM EST Patient's daughter Michelle calls and states that patient has been at [facility] in Alzheimer/Dementia unit. Michelle was [...] Please review and advise, Bessy Freed RN [facility]10-23-2024 [facility]10-21-2024 Telephone encounter Note* Telephone Encounter - Cristina Vizcaino MA - 04/08/2024 1:09 PM EDT Pt currently admitted at [facility] Cristina Vizcaino MA [facility]10-21-2024 Miscellaneous Notes* Telephone Encounter - Cristina [...] everything to them.. I am adding our renal social worker in case she has other options. Thank you Anjel Braga APRN.ACE * Telephone Encounter - Debby Saldana LPN [...] to go to the ER. Advised if squjennie is called he can refuse treatment and not go to the hospital. Advised may have to try adult protective services. She said she is leaving, not taking care of him any longer, she has had enough. documented in [facility]Sal[facility]10-18-2024 Telephone encounter Note * Telephone Encounter - Berta Zazueta MA - 04/05/2024 1:16 PM EDT Left message for return call. [facility]10-18-2024 Telephone encounter Note* Telephone Encounter - Anjel Braga APRN.CNP - 04/05/2024 1:06 PM EDT I understand the concern staying there. You need to call adult protective services and explain everything to them.. I am adding our renal social worker in case she has other options. Thank you Anjel Braga APRN.CNP [facility]10-17-2024 Telephone encounter Note* Telephone Encounter - Bart Lynch MA - 04/04/2024 5:45 PM EDT See TE from today 04/04. Patient appeared to have altered mental status and refusing medical treatment per daughter Michelle reports. Bart Lynch MA [facility]10-17-2024 Miscellaneous Notes* Telephone Encounter - Bart [...] close follow-up with PCP. documented in [facility] encounterSal[facility]10-17-2024 Telephone encounter Note * Telephone Encounter [...] to go to the ER. Advised if squjennie is called he can refuse treatment and not go to the hospital. Advised may have to try adult protective services. She said she is leaving, not taking care of him any longer, she has had enough. T [facility]10-16-2024 Telephone encounter Note* Telephone Encounter - Nani Webb LPN - 04/03/2024 1:58 PM EDT Left a message for pt to call the office and ask to speak to a nurse. Nani Webb LPN [facility]10-14-2024 Telephone encounter Note* Telephone Encounter - Juliana Berger MA - 04/01/2024 9:43 AM EDT Left message for patient to return call. Juliana Berger MA [facility]10-13-2024 Telephone encounter Note* Telephone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 APRN.CNP * Telephone Encounter - Saundra George RN - 10/06/2021 4:20 PM EDT Allyssa with [facility] calls to report that patient's blood [...] PM EDT Erma PT from [facility] called and wanted to let provider [...] Pt has an appointment with Anjel Braga IT SECURITY CONSULTANT on 10/07/21. documented in this encounterSalem City Hospital04-18-2022 Miscellaneous Notes* Telephone Encounter - Kelly [...] you. Kelly Zelaya RN documented in this encounterDeborah Ville [address]-13-2022 Hospital Discharge instructions Patient Education 09/29/2021 17:21:18 [...] of pain and swelling. You may use eote-cbr-ycrzbpz pain medicine to control pain, unless another [...] healthcare provider Congested cough, nausea, or vomiting [phone] [employer]. [address] [place] [address]. All rights reserved. This information is not intended as a substitute for professional medical care. Always follow yourhealthcare professional's instructions. Follow Up Care 09/29/2021 16:18:42 With:DAIJA MORTON MD Address: [address] [place] [address]- When:2-4 days [facility] 04-13-2022 History of Present illness Narrative* Lizette Ulloa RN - 09/29/2021 3:35 PM EDT TRANSITION CARE MANAGEMENT (TCM) FOLLOW-UP NOTE Provider Action/FYI: Attempted to reach patient. Voicemail is full. Unable to leave message. Appointments for Next 60 Days Date Time Provider Location Dept Phone 09/29/2021 1:20 PM ANJEL BRAGA [facility] [phone] 10/04/2021 2:30 PM PEDRO MACHINE DESIGN TEACHER [facility] [phone] 10/04/2021 3:30 PM PEDRO MACHINE DESIGN TEACHER [facility] [phone] 10/04/2021 4:15 PM RYAN MAY [facility] [phone] 10/13/2021 1:00 PM YE COELLO [place] [phone] Summary: Pt discharged from [facility] on 09/13/21. Admitted for: Acute cholecystitis Insole And Outsole Preparer plan for next outreach: No further follow up needed at this time Signature Lizette Ulloa RN September 29, 2021 documented in this encounterSalem City Hospital04-06-2022 Miscellaneous Notes* Telephone Encounter - Berta [...] surgery with Dr. Ye Coello at [facility]. She states she was not aware of this and will follow up. Beckie Medina RN documented in this encounterSalem City Hospital04-05-2022 History of Present illness Narrative* Lizette Ulloa RN - 09/21/2021 11:13 AM EDT TRANSITION CARE MANAGEMENT (TCM) FOLLOW-UP NOTE Provider Action/FYI: Attempted to reach patient. Unable to reach patient. Mailbox is full. Unable to leave message. Pt has f/u with PCP on 09/29/21 Appointments for Next 60 Days Date Time Provider Location Dept Phone 09/29/2021 2:00 PM ANJEL BRAGA [facility] [phone] 10/04/2021 2:30 PM PEDRO MACHINE DESIGN TEACHER [facility] [phone] 10/04/2021 3:30 PM PEDRO MACHINE DESIGN TEACHER [facility] [phone] 10/04/2021 4:15 PM RACQUELRYANO [facility] [phone] Summary: Pt discharged from [facility] on 09/13/21. Admitted for: Acute cholecystitis Concerns: Unable to leave message Insole And Outsole Preparer plan for next outreach: No further follow up needed at this time Signature Lizette Ulloa RN September 21, 2021 documented in this encounterSalem City Hospital04-05-2022 Miscellaneous Notes* Telephone Encounter - Kelly Zelaya RN - 09/21/2021 11:08 AM EDT Called Pts ex- Joseph to put her through to Agatha scheduling to put her through to [facility] to schedule Pt for surgery with Ye Coello. documented in this encounterSalem City Hospital04-05-2022 Miscellaneous Notes* Telephone Encounter - Kelly [...] MESSAGE. Veronica Reyes LPN documented in this encounterSalem City Hospital04-04-2022 Miscellaneous Notes* Telephone Encounter - Berta Zazueta Ma - 09/20/2021 4:11 PM EDT Called Yeimi with [facility] and explained to her that our office [...] with meals, laundry. and housework. She reports [facility] who does this kind of thing is a place she has heard of. Nani Webb LPN documented in this encounterSalem City Hospital04-04-2022 Miscellaneous Notes* Telephone Encounter - Angela RomanMIKE - 09/20/2021 11:[address] Ortega: Dr. Coello's office from [facility] has been trying to contact patient to schedule an appointment with him - see below TUNDE Blackburn MD; Kaye Ortega MD Called patient's phone but no answer and unable to leave VM, VM box full. Left with Patient's daughter [...] his surgery was not done at [facility]. He does have multiple medical morbidities, that preclude him from having surgery in a small [facility]. Thank you for your consideration, Kaye * Telephone Encounter - Angela Roman LPN - 09/17/2021 2:13 PM EDT Patient called asking what was discussed at office visit on 09/15/21, patient was confused. Patient questioning about surgery. Please advise. documented in this encounterSalem City Hospital04-01-2022 Miscellaneous Notes* Telephone Encounter - Rosaura [...] 09/17/2021 4:37 PM EDT Yeimi AHUJA from [facility] calls to report that [facility] tried to deliver 12 mg of coumadin [...] advise, Bessy Freed RN documented in this encounterSalem City Hospital04-01-2022 Miscellaneous Notes* Telephone Encounter - Tia [...] me Describes pain as constant, sharp, aching 02/26 nothing relieves. Has limited po intake stating [...] evaluated. Patient expressed concern about going to [facility] stating they don't know what to do with me there or [facility] Advised to come to [facility] main ED in [place] if he would prefer. Patient stated he would have his ride bring him to the ED today. * Telephone Encounter - Caitlin Britton Pss - 09/17/2021 8:33 AM EDT Patient wants a call back concerning cancelled surgery, and still has pain in his stomach. documented in this encounterSalem City Hospital04-01-2022 Miscellaneous Notes* Telephone Encounter - Kelly Zelaya RN - 09/17/2021 12:49 PM EDT Yeimi with [facility] was called and notified of providers message. She voices understanding. Kelly Zelaya RN * Telephone Encounter - Anjel KISHORE Braga - 09/17/2021 12:36 PM EDT Agree with below order. Thank you Anjel Braga APRN.CNP * Telephone Encounter - Nani Webb LPN - 09/17/2021 12:16 PM EDT Yeimi with [facility] calling to requesting verbal order to add PRN visit for tomorrow to go into pt's home to fill his med certified financial planner with medication changes. Please advise Yeimi back today. Okay to leave a message. Nani Webb LPN documented in this encounterSalem City Hospital04-01-2022 Miscellaneous Notes* Telephone Encounter - Saundra George RN - 09/17/2021 9:37 AM EDT Yeimi with [facility] calls in and provider message below [...] 12 mg starting 09/13/2021. Yeimi AHUJA [facility] reports that patient probably did not have [...] a new prescription to be sent into [facility] for 12 mg Coumadin. documented in this encounterSalem City Hospital04-01-2022 Miscellaneous Notes* Telephone Encounter - Saundra George RN - 09/17/2021 9:36 AM EDT Yeimi with [facility] calls in and provider message below [...] 10:16 AM EDT Yeimi with [facility] calling to check and see if [...] leaves. Nani Webb LPN documented in this encounterSalem City Hospital04-01-2022 Miscellaneous Notes* Telephone Encounter - Saundra [...] 09/22/2021. Saundra George RN documented in this encounterSalem City Hospital04-01-2022 Miscellaneous Notes* Telephone Encounter - Anjel Braga APRN.CNP - 09/17/2021 8:29 AM EDT Noted. Anjel Braga APRN.CNP * Telephone Encounter - Beckie Medina RN - 09/16/2021 1:28 PM EDT LISSETT Steinberg @ [facility] calling with plan of care. OT will see patient 1 x/week for one week, 2 x/week forthree weeks, then 1 x/week for one week for strengthening and ADLs. Beckie Medina RN documented in this encounterSalem City Hospital04-01-2022 History of Present illness Narrative* Kaye [...] summary of his hospitalization at [facility], obtained by my review of the records: Patient has had RUQ abdominal pain for at least a month. He was admitted to [facility] with RUQ abdominal pain. He was [...] cardiology workup. Cardiology workup at [facility] - Echo 08/19/2021 - Interpretation Summary Normal LV size. Left ventricular systolic function is normal. The estimated ejection fraction is 65 %. Stage 1 diastolic dysfunction. Mild (1+) eccentric mitral valve insufficiency. Serum serial troponins were normal. The child welfare specialist diagnosed the chest pain due to patient's uncontrolled hypertension. The patient had a cholecystotomy tube placed 08/20/2021. He subsequently became disoriented and confused and pulled out the tube. He was transferred to [facility] because of lack of IR for replacement over the weekend at [facility]. 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 [...] (HCC) [J43.9] COMPOUNDED PRESCRIPTION Aerosol supplies Dx:J44.1 NPI#[id number] COMPOUNDED PRESCRIPTION NEBULIZER FOR HOME USE. DX: [...] and reviewed by me Nursing Notes: Angela RomanMIKE 09/15/2021 4:21 PM Signed REVIEW OF SYSTEMS: [...] recommended that he have surgery done at [facility] or [facility]. I will personally attempt referral [...] Clinic: The patient will be referred to [facility] or [facility] for surgery. The patient lives alone but does have home health care visitations. Medical Decision Making: Problems: Low: Acute, uncomplicated illness or injury Data: Unique source(s) for external note(s) reviewed: 1 Risk: Moderate: Management significantly limited by SDOH Medical Decision Making Level: 3 - Low Kaye Ortega MD documented in this encounterSalem City Hospital03-31-2022 History of Present illness Narrative* Lizette Ulloa RN - 09/16/2021 1:15 PM EDT TRANSITION CARE MANAGEMENT (TCM) FOLLOW-UP NOTE Provider Action/FYI: Pt had f/u with general surgery and PCP on 09/15/21 Telephone outreach deferred. Summary: Pt discharged from [facility] on 09/13/21. Admitted for: Acute cholecystitis Insole And Outsole Preparer plan for next outreach: No further follow up needed at this time Signature Lizette Ulloa RN September 16, 2021 documented in this encounterSalem City Hospital03-31-2022 Miscellaneous Notes* Telephone Encounter - Berta Zazueta Ma - 09/16/2021 11:24 AM EDT Pharmacy notified. * Telephone Encounter - Anjel Braga APRN.CNP - 09/16/2021 10:53 AM EDT Please let [facility] know that patient's blood pressure medicine was [...] Delgado RN - 09/16/2021 10:07 AM EDT [facility] called stating they are concerned about nifedipine. Reports patient just filled an Rx from the hospital yesterday for 60 mg daily. Today they received an Rx from [facility], for 90 mg daily. Asking W[facility] Floor to please clarify what the nifedipine dose should be. Phone [facility] with reply. documented in this encounterSalem City Hospital03-31-2022 Miscellaneous Notes* Telephone Encounter - Berta Zazueta Ma - 09/16/2021 11:20 AM EDT Left detailed message on [employer]. * Telephone Encounter - Anjel Braga APRN.CNP [...] and reports that Pt was discharged from [facility] and he was put on a new medication Procardia, she is reporting that it is coming up that it has a drug interaction with his Tegretol. She is also reporting her POC for SN. They will see the Pt 2 times a week for 3 weeks, then 1 times a week for 2 weeks for medication and disease education. documented in this encounterSalem City Hospital03-31-2022 Miscellaneous Notes* Telephone Encounter - Anjel [...] at 5 with Anjel. documented in this encounterSalem City Hospital03-30-2022 History of Present illness Narrative* Anjel Braga, TRAILER DRIVER.PANAMA HAT SMEARER - 09/15/2021 5:04 PM EDT CC: Patient [...] issues with this prior to admission. Facility: [facility] Date of visit: 08/18/21- 09/13/21 Reason for visit: RUQ pain, fever, nausea Hospital course: Originally is OSH for cholecystitic. Patient self removed drain and [facility] and possible cholecystectomy. Surgery was deferred, patient did develop a hematoma near galbladder and wall edema which ws possibly related to patient self removing his drain. Wastold to follow up with general surgery post discharge. Saw Dr. Ortega prior to this appointment, per patient she wants him to go to [facility] or [facility] for cholecystectomy. 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 [...] (HCC) [J43.9] COMPOUNDED PRESCRIPTION Aerosol supplies Dx:J44.1 NPI#[id number] COMPOUNDED PRESCRIPTION NEBULIZER FOR HOME USE. DX: [...] plan. Anjel Braga APRN.CNP documented in this encounterSalem City Hospital03-30-2022 Nurse Note* Angela Roman LPN - [...] 2015 Angela Roman LPN documented in this encounterSalem City Hospital03-29-2022 History of Present illness Narrative* Lizette Ulloa RN - 09/14/2021 3:16 PM EDT TRANSITIONAL CARE MANAGEMENT (TCM) COMMUNITY MONITORING PROGRAM Provider Action/FYI: Outreach attempt #2 Unable to reach patient. Mailbox is full Unable to leave message Pt has f/u with PCP on 09/15/21 SUMMARY: Pt discharged from [facility] on 09/13/21. Admitted for: Acute cholecystitis Contact made with patient: No - 2nd unsuccessful attempt - end outreach and close encounter Outreach ended Lizette lUloa RN * Lizette Ulloa RN - 09/14/2021 10:55 AM EDT TCM Home Visit Referral Patient transitioned from acute facility: Source of Stratification: [facility] Readmission Risk Score: 26 MORRIS Score: 5 [...] Dept Phone 09/15/2021 4:00 PM KAYE ORTEGA [phone] 09/15/2021 5:00 PM ANJEL BRAGA [facility] [phone] 10/04/2021 2:30 PM PEDRO MACHINE DESIGN TEACHER [facility] [phone] 10/04/2021 3:30 PM PEDRO MACHINE DESIGN TEACHER [facility] [phone] 10/04/2021 4:15 PM RYAN MAY [facility] [phone] SUMMARY: Pt discharged from [facility] on 09/13/21. Admitted for: Acute cholecystitis Contact made with patient: No - next outreach attempt will be on next day Outreach ended Lizette Ulloa RN documented in this encounterSalem City Hospital03-29-2022 History of Present illness Narrative* Sujatha Horan, [facility] - 09/14/2021 8:49 AM EDT [...] be made. SUMMARY: -Pt discharged from [facility] on 09/13/21. -Follow up appointment on 09/15 [...] with general surgery #PVD s/p stents Left LABORATORY MACHINIST endart with bovine 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 Due to occlusion 2 days later, returned to the OR for Left EIA to LABORATORY MACHINIST bypass with 7mm PTFE distally with retrograde [...] RRR on EKG. On warfarin at home UNIT AIDE TECH. Plan: - Warfarin dosing 12 on discharge. [...] 4:00 PM Kaye Ortega MD [facility] 09/15/2021 5:00 PM Anjel Braga APRN.PANAMA HAT SMEARER [facility] 10/04/2021 2:30 PM Pedro Welder Apprentice [facility] 10/04/2021 3:30 PM Baldwin Welder Apprentice [facility] 10/04/2021 4:15 PM Ryan May MD [facility] LABS AND PROCEDURES PENDING AT [...] fill hx Discontinued: 09/13/2021 12:25 PM D/c UNIT AIDE TECH Nifedipine at discharge aspirin 81 mg chewable tablet Take 1 tablet by mouth once daily. complaint evaluation supervisor these medications at [facility] [address] [place] [address] - [address] [phone] atorvastatin (LIPITOR) 40 mg tablet Take 1 tablet by mouth once daily. on pharmacy dispense recordswith recent fill hx [facility] brace for compression Fx L3 [...] fill hx COMPOUNDED PRESCRIPTION Aerosol supplies Dx:J44.1 [facility]#[id number] COMPOUNDED PRESCRIPTION NEBULIZER FOR HOME USE. DX: Emphysema, COPD diclofenac sodium (VOLTAREN) 1 % topical gel Apply 2 g to affected area four times daily. Discontinued: 09/13/2021 12:25 PM D/c UNIT AIDE TECH Discontinued: 09/13/2021 12:25 PM D/c UNIT AIDE TECH finasteride (PROSCAR) 5 mg tablet Take 1 [...] of breath. Discontinued: 09/13/2021 12:25 PM D/c UNIT AIDE TECH losartan (COZAAR) 100 mg tablet Take 1 tablet by mouth once daily. on pharmacy dispense records with recent fill hx Discontinued: 09/13/2021 12:25 PM D/c UNIT AIDE TECH metoprolol succinate ER (TOPROL XL) 25 mg 24 hr tablet Take 0.5 tablets by mouth once daily. complaint evaluation supervisor these medications at [facility] [address] [place] [address] - [address] - [phone] Discontinued: 09/13/2021 12:25 PM D/c UNIT AIDE TECH Succinate at discharge mirtazapine (REMERON) 15 mg tablet Take 1 tablet by mouth daily at bedtime. on pharmacy dispense records with recent fill hx Nebulizer Accessories kit Provide nebulizer accessory kit NIFEdipine ER (PROCARDIA XL) 60 mg 24 hr tablet Take 1 tablet by mouth once daily. complaint evaluation supervisor these medications at [address] [id number] - [address] [phone] Discontinued: 09/13/2021 12:25 PM D/c UNIT AIDE TECH pantoprazole DR (PROTONIX) 40 mg tablet Take [...] recent fill hx Discontinued: 09/13/2021 12:27 PM UNIT AIDE TECH dose Discontinued: 09/13/2021 12:25 PM UNIT AIDE TECH dose warfarin (COUMADIN) 5 mg tablet Warfarin 12 mg starting 09/13/2021 'Med Update' entered at discharge, new e-RX not issued Followed by PAC Recent Labs 09/13/21 0730 09/12/21 0835 INR 2.9* 2.2* Route to PAC to follow up- closest patient would be able to achieve with 5mg is 12.5mg Discontinued: 09/13/2021 12:25 PM UNIT AIDE TECH dose Preferred pharmacy: [address] [address] - [address] [phone] [address] [place] [address] [facility] [address] - [place] [address] - [address] [phone] [address] [place] [address] Estimated Creatinine Clearance: 64.1 mL/min (based on [...] Dept Phone 09/15/2021 4:00 PM KAYE ORTEGA [phone] 09/15/2021 5:00 PM ANJEL BRAGA [facility] [phone] 10/04/2021 2:30 PM PEDRO MACHINE DESIGN TEACHER [facility] [phone] 10/04/2021 3:30 PM PEDRO MACHINE DESIGN TEACHER [facility] [phone] 10/04/2021 4:15 PM RYAN MAY [facility] [phone] Interventions Made: None Pharmacist Recommendations Made None Care Coordination: Referral to anticoagulation management team Time spent on patient: 30-45 minutes PAWAN KENNEDY, [facility] Pharmacy Transitional Care Management September 14, 2021 2:08 PM Pharmacy Transitional Care Management Outreach First attempt to contact patient for TCM outreach was unsuccessful. We will contact patient again either later today or on the next business day. Sujatha Horan RP Pharmacy Transitional Care Management Team September 14, 2021 11:58 AM documented in this encounterSalem City Hospital03-05-2022 History of Past illness Narrative* Problem [...] Overview: Admission: -became hypotensive on admission to [facility] (109/45 vs. 181/75 in ED) -1 L bolus given, BP improved to 130s/60s, lactate 2.5-->0.9 Plan: -BP remains stable in 110s-130s/50s since IV fluids and 2 units of blood -hold beta joel Dysuria 02/07/2016 06/08/2023 Overview: Assessment: -Patient reports symptoms of UTI diagnosed at [facility] on 02/01/16 (confirmed via CareEverywhere) and [...] vascular disease) 04/22/2014 06/08/2023 Overview: Assessment: Left LABORATORY MACHINIST endart with bovine 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 Due to occlusion of this repair 2 days later, he returned to the OR and underwent a Left EIA to LABORATORY MACHINIST bypass with 7mm PTFE distally with retrograde [...] Neurotoin BID at home Patient started on [place] postoperatively, pain controlled at time of discharge. Urinary retention 10/25/2013 08/18/2022 Overview: Home med: tamsulosin Plan: -Resume Tamsulosin DISPOSITION AND FOLLOW-UP 10/25/2013 Overview: CM following for d/c needs. PT/OT to evaluate-->recommending home PT 07/08/2014 Discharge with home care today Ischemia of extremity 10/14/20132013 Overview: - admitted to [facility] vascular surgery twice in October 2013, [...] of this encounter (statuses as of 07/20/2023) [facility]03-[facility] History of Past illness Narrative* Problem [...] Overview: Admission: -became hypotensive on admission to [facility] (109/45 vs. 181/75 in ED) -1 L bolus given, BP improved to 130s/60s, lactate 2.5-->0.9 Plan: -BP remains stable in 110s-130s/50s since IV fluids and 2 units of blood -hold beta joel Dysuria 02/07/2016 06/08/2023 Overview: Assessment: -Patient reports symptoms of UTI diagnosed at [facility] on 02/01/16 (confirmed via [facility]) and [...] vascular disease) 04/22/2014 06/08/2023 Overview: Assessment: Left LABORATORY MACHINIST endart with bovine 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 Due to occlusion of this repair 2 days later, he returned to the OR and underwent a Left EIA to LABORATORY MACHINIST bypass with 7mm PTFE distally with retrograde [...] Neurotoin BID at home Patient started on [place] postoperatively, pain controlled at time of discharge. Urinary retention 10/25/2013 08/18/2022 Overview: Home med: tamsulosin Plan: -Resume Tamsulosin DISPOSITION AND FOLLOW-UP 10/25/2013 Overview: CM following for d/c needs. PT/OT to evaluate-->recommending home PT 07/08/2014 Discharge with home care today Ischemia of extremity 10/14/20132013 Overview: - admitted to [facility] vascular surgery twice in October 2013, s/p left femoral endarterectomy with patch, US guided access RCFA, L profundaplasty, RUFUS recanalization & stenting, CRISPIN stenting on 10/23/13 for aorto-occlusive critical limb ischemia - S/p 11/12-11/19/13 [facility] Vascular Surgery for aortoiliac thrombosis (BLE [...] of this encounter (statuses as of 08/07/2023) [facility]03-[facility] History of Past illness Narrative* Problem [...] Overview: Admission: -became hypotensive on admission to [facility] (109/45 vs. 181/75 in ED) -1 L bolus given, BP improved to 130s/60s, lactate 2.5-->0.9 Plan: -BP remains stable in 110s-130s/50s since IV fluids and 2 units of blood -hold beta joel Dysuria 02/07/2016 06/08/2023 Overview: Assessment: -Patient reports symptoms of UTI diagnosed at [facility] on 02/01/16 (confirmed via [facility]) and [...] vascular disease) 04/22/2014 06/08/2023 Overview: Assessment: Left LABORATORY MACHINIST endart with bovine 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 Due to occlusion of this repair 2 days later, he returned to the OR and underwent a Left EIA to LABORATORY MACHINIST bypass with 7mm PTFE distally with retrograde [...] Neurotoin BID at home Patient started on [place] postoperatively, pain controlled at time of discharge. Urinary retention 10/25/2013 08/18/2022 Overview: Home med: tamsulosin Plan: -Resume Tamsulosin DISPOSITION AND FOLLOW-UP 10/25/2013 Overview: CM following for d/c needs. PT/OT to evaluate-->recommending home PT 07/08/2014 Discharge with home care today Ischemia of extremity 10/14/20132013 Overview: - admitted to [facility] vascular surgery twice in October 2013, s/p left femoral endarterectomy with patch, US guided access RCFA, L profundaplasty, RUFUS recanalization & stenting, CRISPIN stenting on 10/23/13 for aorto-occlusive critical limb ischemia - S/p 11/12-11/19/13 [facility] Vascular Surgery for aortoiliac thrombosis (BLE [...] of this encounter (statuses as of 08/21/2023) [facility]02-[facility] Miscellaneous Notes* Telephone Encounter - Anjel [...] you. Bessy Freed RN [facility] Miscellaneous Notes* Telephone Encounter - Daija [...] Jonathon. Phoned [facility] to let her know [facility] is aware of changed coumadin dose. She is going to call [facility], to see if they are bringing patient new pill pack. Reports she was going to discharge patient today, but isgoing to talk to her supervisor television chassis repair about keeping patient on [facility] for one more visit. * Telephone Encounter - Bing Delgado RN - 11/12/2020 12:50 PM EDT [facility]- [facility]- reports patient's new coumadin instructions have not been updated to [facility]. Attempted to call [facility]- they are closed for lunch. Will try again when they re-open at 1 pm. [facility] History of Present illness Narrative* Nahed [...] 11, 2020 10:32 AM documented in [facility] History of Past illness Narrative* Problem [...] Neurotoin BID at home Patient started on [place] postoperatively, pain controlled at time of discharge. Ischemia of extremity 10/14/2013 02/10/2014 Overview: - admitted to [facility] vascular surgery twice in October 2013, s/p left femoral endarterectomy with patch, US guided access RCFA, L profundaplasty, RUFUS recanalization & stenting, CRISPIN stenting on 10/23/13 for aorto-occlusive critical limb ischemia - S/p 11/12-11/19/13 [facility] Vascular Surgery for aortoiliac thrombosis (BLE [...] of this encounter (statuses as of 09/14/2021) [facility] History of Past illness Narrative* Problem [...] Neurotoin BID at home Patient started on [place] postoperatively, pain controlled at time of discharge. Ischemia of extremity 10/14/2013 02/10/2014 Overview: - admitted to [facility] vascular surgery twice in October 2013, s/p left femoral endarterectomy with patch, US guided access RCFA, L profundaplasty, RUFUS recanalization & stenting, CRISPIN stenting on 10/23/13 for aorto-occlusive critical limb ischemia - S/p 11/12-11/19/13 [facility] Vascular Surgery for aortoiliac thrombosis (BLE [...] of this encounter (statuses as of 09/15/2021) [facility] History of Past illness Narrative* Problem [...] Neurotoin BID at home Patient started on [place] postoperatively, pain controlled at time of discharge. Ischemia of extremity 10/14/2013 02/10/2014 Overview: - admitted to [facility] vascular surgery twice in October 2013, s/p left femoral endarterectomy with patch, US guided access RCFA, L profundaplasty, RUFUS recanalization & stenting, CRISPIN stenting on 10/23/13 for aorto-occlusive critical limb ischemia - S/p 11/12-11/19/13 [facility] Vascular Surgery for aortoiliac thrombosis (BLE [...] of this encounter (statuses as of 09/15/2021) [facility] History of Past illness Narrative* Problem [...] Neurotoin BID at home Patient started on [place] postoperatively, pain controlled at time of discharge. Ischemia of extremity 10/14/2013 02/10/2014 Overview: - admitted to [facility] vascular surgery twice in October 2013, s/p left femoral endarterectomy with patch, US guided access RCFA, L profundaplasty, RUFUS recanalization & stenting, CRISPIN stenting on 10/23/13 for aorto-occlusive critical limb ischemia - S/p 11/12-11/19/13 [facility] Vascular Surgery for aortoiliac thrombosis (BLE [...] of this encounter (statuses as of 09/16/2021) [facility] History of Past illness Narrative* Problem [...] Neurotoin BID at home Patient started on [place] postoperatively, pain controlled at time of discharge. Ischemia of extremity 10/14/2013 02/10/2014 Overview: - admitted to [facility] vascular surgery twice in October 2013, s/p left femoral endarterectomy with patch, US guided access RCFA, L profundaplasty, RUFUS recanalization & stenting, CRISPIN stenting on 10/23/13 for aorto-occlusive critical limb ischemia - S/p 11/12-11/19/13 [facility] Vascular Surgery for aortoiliac thrombosis (BLE [...] of this encounter (statuses as of 09/16/2021) [facility] History of Past illness Narrative* Problem [...] Neurotoin BID at home Patient started on [place] postoperatively, pain controlled at time of discharge. Ischemia of extremity 10/14/2013 02/10/2014 Overview: - admitted to [facility] vascular surgery twice in October 2013, s/p left femoral endarterectomy with patch, US guided access RCFA, L profundaplasty, RUFUS recanalization & stenting, CRISPIN stenting on 10/23/13 for aorto-occlusive critical limb ischemia - S/p 11/12-11/19/13 [facility] Vascular Surgery for aortoiliac thrombosis (BLE [...] of this encounter (statuses as of 09/17/2021) [facility] History of Past illness Narrative* Problem [...] Neurotoin BID at home Patient started on [place] postoperatively, pain controlled at time of discharge. Ischemia of extremity 10/14/2013 02/10/2014 Overview: - admitted to [facility] vascular surgery twice in October 2013, s/p left femoral endarterectomy with patch, US guided access RCFA, L profundaplasty, RUFUS recanalization & stenting, CRISPIN stenting on 10/23/13 for aorto-occlusive critical limb ischemia - S/p 11/12-11/19/13 [facility] Vascular Surgery for aortoiliac thrombosis (BLE [...] of this encounter (statuses as of 09/17/2021) [facility] History of Past illness Narrative* Problem [...] Neurotoin BID at home Patient started on [place] postoperatively, pain controlled at time of discharge. Ischemia of extremity 10/14/2013 02/10/2014 Overview: - admitted to [facility] vascular surgery twice in October 2013, [...] of this encounter (statuses as of 09/17/2021) [facility] History of Past illness Narrative* Problem [...] Neurotoin BID at home Patient started on [place] postoperatively, pain controlled at time of discharge. Ischemia of extremity 10/14/2013 02/10/2014 Overview: - admitted to [facility] vascular surgery twice in October 2013, [...] of this encounter (statuses as of 09/18/2021) [facility] History of Past illness Narrative* Problem [...] Neurotoin BID at home Patient started on [place] postoperatively, pain controlled at time of discharge. Ischemia of extremity 10/14/2013 02/10/2014 Overview: - admitted to [facility] vascular surgery twice in October 2013, [...] of this encounter (statuses as of 09/20/2021) [facility] History of Past illness Narrative* Problem [...] Neurotoin BID at home Patient started on [place] postoperatively, pain controlled at time of discharge. [...] of this encounter (statuses as of 09/21/2021) [facility] History of Past illness Narrative* Problem [...] Neurotoin BID at home Patient started on [place] postoperatively, pain controlled at time of discharge. Ischemia of extremity 10/14/2013 02/10/2014 Overview: - admitted to [facility] vascular surgery twice in October 2013, s/p left femoral endarterectomy with patch, US guided access RCFA, L profundaplasty, RUFUS recanalization & stenting, CRISPIN stenting on 10/23/13 for aorto-occlusive critical limb ischemia - S/p 11/12-11/19/13 [facility] Vascular Surgery for aortoiliac thrombosis (BLE [...] of this encounter (statuses as of 09/22/2021) [facility] History of Past illness Narrative* Problem [...] Neurotoin BID at home Patient started on [place] postoperatively, pain controlled at time of discharge. Ischemia of extremity 10/14/2013 02/10/2014 Overview: - admitted to [facility] vascular surgery twice in October 2013, s/p left femoral endarterectomy with patch, US guided access RCFA, L profundaplasty, RUFUS recanalization & stenting, CRISPIN stenting on 10/23/13 for aorto-occlusive critical limb ischemia - S/p 11/12-11/19/13 [facility] Vascular Surgery for aortoiliac thrombosis (BLE [...] of this encounter (statuses as of 09/29/2021) [facility] of Past illness Narrative* Problem [...] Neurotoin BID at home Patient started on [place] postoperatively, pain controlled at time of discharge. Ischemia of extremity 10/14/2013 02/10/2014 Overview: - admitted to [facility] vascular surgery twice in October 2013, s/p left femoral endarterectomy with patch, US guided access RCFA, L profundaplasty, RUFUS recanalization & stenting, CRISPIN stenting on 10/23/13 for aorto-occlusive critical limb ischemia - S/p 11/12-11/19/13 [facility] Vascular Surgery for aortoiliac thrombosis (BLE [...] of this encounter (statuses as of 10/04/2021) [facility] of Past illness Narrative* Problem [...] Neurotoin BID at home Patient started on [place] postoperatively, pain controlled at time of discharge. Ischemia of extremity 10/14/2013 02/10/2014 Overview: - admitted to [facility] vascular surgery twice in October 2013, s/p left femoral endarterectomy with patch, US guided access RCFA, L profundaplasty, RUFUS recanalization & stenting, CRISPIN stenting on 10/23/13 for aorto-occlusive critical limb ischemia - S/p 11/12-11/19/13 [facility] Vascular Surgery for aortoiliac thrombosis (BLE [...] of this encounter (statuses as of 10/06/2021) [facility] of Past illness Narrative* Problem [...] Neurotoin BID at home Patient started on [place] postoperatively, pain controlled at time of discharge. Ischemia of extremity 10/14/2013 02/10/2014 Overview: - admitted to [facility] vascular surgery twice in October 2013, s/p left femoral endarterectomy with patch, US guided access RCFA, L profundaplasty, RUFUS recanalization & stenting, CRISPIN stenting on 10/23/13 for aorto-occlusive critical limb ischemia - S/p 11/12-11/19/13 [facility] Vascular Surgery for aortoiliac thrombosis (BLE [...] of this encounter (statuses as of 10/07/2021) [facility] of Past illness Narrative* Problem [...] Neurotoin BID at home Patient started on [place] postoperatively, pain controlled at time of discharge. Ischemia of extremity 10/14/2013 02/10/2014 Overview: - admitted to [facility] vascular surgery twice in October 2013, [...] of this encounter (statuses as of 10/07/2021) [facility] History of Past illness Narrative* Problem [...] Neurotoin BID at home Patient started on [place] postoperatively, pain controlled at time of discharge. Ischemia of extremity 10/14/2013 02/10/2014 Overview: - admitted to [facility] vascular surgery twice in October 2013, s/p left femoral endarterectomy with patch, US guided access RCFA, L profundaplasty, RUFUS recanalization & stenting, CRISPIN stenting on 10/23/13 for aorto-occlusive critical limb ischemia - S/p 11/12-11/19/13 [facility] Vascular Surgery for aortoiliac thrombosis (BLE [...] of this encounter (statuses as of 10/08/2021) [facility] of [facility] illness Narrative* Problem [...] Neurotoin BID at home Patient started on [place] postoperatively, pain controlled at time of discharge. Ischemia of extremity 10/14/2013 02/10/2014 Overview: - admitted to [facility] vascular surgery twice in October 2013, [...] of this encounter (statuses as of 10/13/2021) [facility] of Past illness Narrative* Problem [...] Neurotoin BID at home Patient started on [place] postoperatively, pain controlled at time of discharge. Ischemia of extremity 10/14/2013 02/10/2014 Overview: - admitted to [facility] vascular surgery twice in October 2013, s/p left femoral endarterectomy with patch, US guided access RCFA, L profundaplasty, RUFUS recanalization & stenting, CRISPIN stenting on 10/23/13 for aorto-occlusive critical limb ischemia - S/p 11/12-11/19/13 [facility] Vascular Surgery for aortoiliac thrombosis (BLE [...] of this encounter (statuses as of 10/13/2021) [facility] of Past illness Narrative* Problem [...] Neurotoin BID at home Patient started on [place] postoperatively, pain controlled at time of discharge. Ischemia of extremity 10/14/2013 02/10/2014 Overview: - admitted to [facility] vascular surgery twice in October 2013, [...] of this encounter (statuses as of 10/14/2021) [facility] Narrative* Problem [...] Neurotoin BID at home Patient started on [place] postoperatively, pain controlled at time of discharge. Ischemia of extremity 10/14/2013 02/10/2014 Overview: - admitted to [facility] twice in October 2013, s/p left femoral endarterectomy with patch, US guided access RCFA, L profundaplasty, RUFUS recanalization & stenting, CRISPIN stenting on 10/23/13 for aorto-occlusive critical limb ischemia - S/p 11/12-11/19/13 [facility] Vascular Surgery for aortoiliac thrombosis (BLE [...] of this encounter (statuses as of 10/18/2021) [facility] Narrative* Problem [...] Neurotoin BID at home Patient started on [place] postoperatively, pain controlled at time of discharge. Ischemia of extremity 10/14/2013 02/10/2014 Overview: - admitted to [facility] vascular surgery twice in October 2013, [...] of this encounter (statuses as of 10/21/2021) [facility] Narrative* Problem [...] Neurotoin BID at home Patient started on [place] postoperatively, pain controlled at time of discharge. Ischemia of extremity 10/14/2013 02/10/2014 Overview: - admitted to [facility] vascular surgery twice in October 2013, [...] of this encounter (statuses as of 10/21/2021) [facility] Narrative* Problem [...] Neurotoin BID at home Patient started on [place] postoperatively, pain controlled at time of discharge. Ischemia of extremity 10/14/2013 02/10/2014 Overview: - admitted to [facility] vascular surgery twice in October 2013, [...] of this encounter (statuses as of 10/22/2021) [facility] Narrative* Problem [...] Neurotoin BID at home Patient started on [place] postoperatively, pain controlled at time of discharge. Ischemia of extremity 10/14/2013 02/10/2014 Overview: - admitted to [facility] vascular surgery twice in October 2013, s/p left femoral endarterectomy with patch, US guided access RCFA, L profundaplasty, RUFUS recanalization & stenting, CRISPIN stenting on 10/23/13 for aorto-occlusive critical limb ischemia - S/p 11/12-11/19/13 [facility] Vascular Surgery for aortoiliac thrombosis (BLE [...] of this encounter (statuses as of 10/22/2021) [facility] Narrative* Problem [...] Neurotoin BID at home Patient started on [place] postoperatively, pain controlled at time of discharge. Ischemia of extremity 10/14/2013 02/10/2014 Overview: - admitted to [facility] vascular surgery twice in October 2013, [...] of this encounter (statuses as of 10/22/2021) [facility] Narrative* Problem [...] Neurotoin BID at home Patient started on [place] postoperatively, pain controlled at time of discharge. Ischemia of extremity 10/14/2013 02/10/2014 Overview: - admitted to [facility] vascular surgery twice in October 2013, s/p left femoral endarterectomy with patch, US guided access RCFA, L profundaplasty, RUFUS recanalization & stenting, CRISPIN stenting on 10/23/13 for aorto-occlusive critical limb ischemia - S/p 11/12-11/19/13 [facility] Vascular Surgery for aortoiliac thrombosis (BLE [...] of this encounter (statuses as of 10/27/2021) [facility] Narrative* Problem [...] Neurotoin BID at home Patient started on [place] postoperatively, pain controlled at time of discharge. Ischemia of extremity 10/14/2013 02/10/2014 Overview: - admitted to [facility] vascular surgery twice in October 2013, [...] of this encounter (statuses as of 11/08/2021) [facility] Narrative* Problem [...] Neurotoin BID at home Patient started on [place] postoperatively, pain controlled at time of discharge. Ischemia of extremity 10/14/2013 02/10/2014 Overview: - admitted to [facility] vascular surgery twice in October 2013, s/p left femoral endarterectomy with patch, US guided access RCFA, L profundaplasty, RUFSU recanalization & stenting, CRISPIN stenting on 10/23/13 for aorto-occlusive critical limb ischemia - S/p 11/12-11/19/13 [facility] Vascular Surgery for aortoiliac thrombosis (BLE [...] of this encounter (statuses as of 11/08/2021) [facility] Narrative* Problem [...] Neurotoin BID at home Patient started on [place] postoperatively, pain controlled at time of discharge. Ischemia of extremity 10/14/2013 02/10/2014 Overview: - admitted to [facility] vascular surgery twice in October 2013, [...] of this encounter (statuses as of 11/11/2021) [facility] Narrative* Problem [...] Neurotoin BID at home Patient started on [place] postoperatively, pain controlled at time of discharge. Ischemia of extremity 10/14/2013 02/10/2014 Overview: - admitted to [facility] vascular surgery twice in October 2013, s/p left femoral endarterectomy with patch, US guided access RCFA, L profundaplasty, RUFUS recanalization & stenting, CRISPIN stenting on 10/23/13 for aorto-occlusive critical limb ischemia - S/p 11/12-11/19/13 [facility] Vascular Surgery for aortoiliac thrombosis (BLE [...] of this encounter (statuses as of 11/12/2021) [facility] Narrative* Problem [...] Neurotoin BID at home Patient started on [place] postoperatively, pain controlled at time of discharge. [...] of this encounter (statuses as of 11/16/2021) [facility] Narrative* Problem [...] Neurotoin BID at home Patient started on [place] postoperatively, pain controlled at time of discharge. Ischemia of extremity 10/14/2013 02/10/2014 Overview: - admitted to [facility] vascular surgery twice in October 2013, s/p left femoral endarterectomy with patch, US guided access RCFA, L profundaplasty, RUFUS recanalization & stenting, CRISPIN stenting on 10/23/13 for aorto-occlusive critical limb ischemia - S/p 11/12-11/19/13 [facility] Vascular Surgery for aortoiliac thrombosis (BLE [...] of this encounter (statuses as of 11/17/2021) [facility] Narrative* Problem [...] Neurotoin BID at home Patient started on [place] postoperatively, pain controlled at time of discharge. Ischemia of extremity 10/14/2013 02/10/2014 Overview: - admitted to [facility] vascular surgery twice in October 2013, s/p left femoral endarterectomy with patch, US guided access RCFA, L profundaplasty, RUFUS recanalization & stenting, CRISPIN stenting on 10/23/13 for aorto-occlusive critical limb ischemia - S/p 11/12-11/19/13 [facility] Vascular Surgery for aortoiliac thrombosis (BLE [...] of this encounter (statuses as of 11/17/2021) [facility] Narrative* Problem [...] Neurotoin BID at home Patient started on [place] postoperatively, pain controlled at time of discharge. Ischemia of extremity 10/14/2013 02/10/2014 Overview: - admitted to [facility] vascular surgery twice in October 2013, s/p left femoral endarterectomy with patch, US guided access RCFA, L profundaplasty, RUFUS recanalization & stenting, CRISPIN stenting on 10/23/13 for aorto-occlusive critical limb ischemia - S/p 11/12-11/19/13 [facility] [facility] Vascular Surgery for aortoiliac thrombosis (BLE [...] of this encounter (statuses as of 11/18/2021) [facility]04-24-2020 History of Past illness Narrative* Problem [...] Neurotoin BID at home Patient started on [place] postoperatively, pain controlled at time of discharge. Ischemia of extremity 10/14/2013 02/10/2014 Overview: - admitted to [facility] vascular surgery twice in October 2013, s/p left femoral endarterectomy with patch, US guided access RCFA, L profundaplasty, RUFUS recanalization & stenting, CRISPIN stenting on 10/23/13 for aorto-occlusive critical limb ischemia - S/p 11/12-11/19/13 [facility] Vascular Surgery for aortoiliac thrombosis (BLE [...] of this encounter (statuses as of 11/19/2021) [facility]04-24-2020 History of Past illness Narrative* Problem [...] Neurotoin BID at home Patient started on [place] postoperatively, pain controlled at time of discharge. Ischemia of extremity 10/14/2013 02/10/2014 Overview: - admitted to [facility] vascular surgery twice in October 2013, s/p left femoral endarterectomy with patch, US guided access RCFA, L profundaplasty, RUFUS recanalization & stenting, CRISPIN stenting on 10/23/13 for aorto-occlusive critical limb ischemia - S/p 11/12-11/19/13 [facility] Vascular Surgery for aortoiliac thrombosis (BLE [...] of this encounter (statuses as of 11/19/2021) [facility]04-24-2020 History of Past illness Narrative* Problem [...] Neurotoin BID at home Patient started on [place] postoperatively, pain controlled at time of discharge. Ischemia of extremity 10/14/2013 02/10/2014 Overview: - admitted to [facility] vascular surgery twice in October 2013, s/p left femoral endarterectomy with patch, US guided access RCFA, L profundaplasty, RUFUS recanalization & stenting, CRISPIN stenting on 10/23/13 for aorto-occlusive critical limb ischemia - S/p 11/12-11/19/13 [facility] Vascular Surgery for aortoiliac thrombosis (BLE [...] of this encounter (statuses as of 11/26/2021) [facility]04-24-2020 History of Past illness Narrative* Problem [...] Neurotoin BID at home Patient started on [place] postoperatively, pain controlled at time of discharge. Ischemia of extremity 10/14/2013 02/10/2014 Overview: - admitted to [facility] vascular surgery twice in October 2013, [...] of this encounter (statuses as of 11/30/2021) [facility]04-24-2020 History of Past illness Narrative* Problem [...] Neurotoin BID at home Patient started on [place] postoperatively, pain controlled at time of discharge. Ischemia of extremity 10/14/2013 02/10/2014 Overview: - admitted to [facility] vascular surgery twice in October 2013, [...] of this encounter (statuses as of 12/03/2021) [facility]04-24-2020 History of Past illness Narrative* Problem [...] Neurotoin BID at home Patient started on [place] postoperatively, pain controlled at time of discharge. Ischemia of extremity 10/14/2013 02/10/2014 Overview: - admitted to [facility] vascular surgery twice in October 2013, s/p left femoral endarterectomy with patch, US guided access RCFA, L profundaplasty, RUFUS recanalization & stenting, CRISPIN stenting on 10/23/13 for aorto-occlusive critical limb ischemia - S/p 11/12-11/19/13 [facility] Vascular Surgery for aortoiliac thrombosis (BLE [...] of this encounter (statuses as of 12/07/2021) [facility]04-24-2020 History of Past illness Narrative* Problem [...] Neurotoin BID at home Patient started on [place] postoperatively, pain controlled at time of discharge. Ischemia of extremity 10/14/2013 02/10/2014 Overview: - admitted to [facility] vascular surgery twice in October 2013, s/p left femoral endarterectomy with patch, US guided access RCFA, L profundaplasty, RUFUS recanalization & stenting, CRISPIN stenting on 10/23/13 for aorto-occlusive critical limb ischemia - S/p 11/12-11/19/13 [facility] Vascular Surgery for aortoiliac thrombosis (BLE [...] of this encounter (statuses as of 01/14/2022) [facility]04-24-2020 History of Past illness Narrative* Problem [...] Neurotoin BID at home Patient started on [place] postoperatively, pain controlled at time of discharge. Ischemia of extremity 10/14/2013 02/10/2014 Overview: - admitted to [facility] vascular surgery twice in October 2013, s/p left femoral endarterectomy with patch, US guided access RCFA, L profundaplasty, RUFUS recanalization & stenting, CRISPIN stenting on 10/23/13 for aorto-occlusive critical limb ischemia - S/p 11/12-11/19/13 [facility] Vascular Surgery for aortoiliac thrombosis (BLE [...] of this encounter (statuses as of 01/14/2022) [facility]04-24-2020 History of Past illness Narrative* Problem [...] Neurotoin BID at home Patient started on [place] postoperatively, pain controlled at time of discharge. Ischemia of extremity 10/14/2013 02/10/2014 Overview: - admitted to [facility] vascular surgery twice in October 2013, s/p left femoral endarterectomy with patch, US guided access RCFA, L profundaplasty, RUFUS recanalization & stenting, CRISPIN stenting on 10/23/13 for aorto-occlusive critical limb ischemia - S/p 11/12-11/19/13 [facility] Vascular Surgery for aortoiliac thrombosis (BLE [...] of this encounter (statuses as of 01/25/2022) [facility]04-24-2020 History of Past illness Narrative* Problem [...] Neurotoin BID at home Patient started on [place] postoperatively, pain controlled at time of discharge. Ischemia of extremity 10/14/2013 02/10/2014 Overview: - admitted to [facility] vascular surgery twice in October 2013, s/p left femoral endarterectomy with patch, US guided access RCFA, L profundaplasty, RUFUS recanalization & stenting, CRISPIN stenting on 10/23/13 for aorto-occlusive critical limb ischemia - S/p 11/12-11/19/13 [facility] Vascular Surgery for aortoiliac thrombosis (BLE [...] of this encounter (statuses as of 01/28/2022) [facility]04-24[facility]2020 History of Past illness Narrative* Problem [...] Neurotoin BID at home Patient started on [place] postoperatively, pain controlled at time of discharge. Ischemia of extremity 10/14/2013 02/10/2014 Overview: - admitted to [facility] vascular surgery twice in October 2013, s/p left femoral endarterectomy with patch, US guided access RCFA, L profundaplasty, RUFUS recanalization & stenting, CRISPIN stenting on 10/23/13 for aorto-occlusive critical limb ischemia - S/p 11/12-11/19/13 [facility] Vascular Surgery for aortoiliac thrombosis (BLE [...] of this encounter (statuses as of 01/31/2022) [facility]04-24-2020 History of Past illness Narrative* Problem [...] Neurotoin BID at home Patient started on [place] postoperatively, pain controlled at time of discharge. Ischemia of extremity 10/14/2013 02/10/2014 Overview: - admitted to [facility] vascular surgery twice in October 2013, s/p left femoral endarterectomy with patch, US guided access RCFA, L profundaplasty, RUFUS recanalization & stenting, CRISPIN stenting on 10/23/13 for aorto-occlusive critical limb ischemia - S/p 11/12-11/19/13 [facility] Vascular Surgery for aortoiliac thrombosis (BLE [...] of this encounter (statuses as of 01/31/2022) [facility]04-24[facility]2020 History of Past illness Narrative* Problem [...] Neurotoin BID at home Patient started on [place] postoperatively, pain controlled at time of discharge. Ischemia of extremity 10/14/2013 02/10/2014 Overview: - admitted to [facility] vascular surgery twice in October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 without exacerbation Tobacco use disorder Pre-operative respiratory examination [facility] Diagnosis PVD (peripheral vascular disease) (HCC) Peripheral vascular disease, unspecified [facility]* Diagnosis Preoperative cardiovascular examination- Primary Pre-operative cardiovascular examination Paroxysmal atrial fibrillation (HCC) Atrial fibrillation Coronary artery disease involving [place] coronary artery of [place] heart without angina pectoris Primary hypertension Unspecified essential hypertension Mixed hyperlipidemia PVD (peripheral vascular disease) (HCC) Peripheral vascular disease, unspecified Smoker Tobacco use disorder [facility]* Diagnosis Urinary tract infection without hematuria, site unspecified- Primary [facility]* Diagnosis Onset Date Resolution Status Abdominal pain acute Acute cholecystitis acute Biliary colic acute Biliary sludge determined by ultrasound acute Current use of anticoagulant therapy acute Transaminitis acute 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 Hypertension chronic Elevated blood pressure read ing in office with diagnosis of hypertension resolved Preop cardiovascular exam re solved ABLA (acute blood loss anemia) acute [facility] Work Phone: Evaluation note* Diagnosis Coronary artery disease, unspecified vessel or lesion type, unspecified whether angina present, unspecified whether [place] or transplanted heart PVD (peripheral vascular disease) (HCC) Peripheral vascular disease, unspecified [facility]* Diagnosis Onset Date Resolution Status Abdominal pain acute Acute cholecystitis acute Biliary colic acute Biliary sludge determined by ultrasound acute Current use of anticoagulant therapy acute Transaminitis acute 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 Hypertension chronic Elevated blood pressure read ing in office with diagnosis of hypertension resolved Preop cardiovascular exam re solved ABLA (acute blood loss anemia) acute 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 History of atrial fibrillation chronic Hypertension chronic Iron deficiency anemia chron ic Peripheral vascular disease [facility] Work Phone: Evaluation note* Diagnosis PVD (peripheral vascular disease) (HCC) Peripheral vascular disease, unspecified [facility] Diagnosis Onset Date Resolution Status Abdominal pain acute Acute cholecystitis acute Biliary colic acute Biliary sludge determined by ultrasound acute Current use of anticoagulant therapy acute Transaminitis acute 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 Hypertension chronic Elevated blood pressure read ing in office with diagnosis of hypertension resolved Preop cardiovascular exam re solved 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 History of atrial fibrillation chronic Hypertension chronic Iron deficiency anemia chron ic Peripheral vascular disease chronic ABLA (acute blood loss anemia) resolved [facility] Work Phone: Evaluation note* Diagnosis Onset Date Resolution Status 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 History of atrial fibrillation chronic Hypertension chronic Iron deficiency anemia chron ic Peripheral vascular disease chronic ABLA (acute blood loss anemia) resolved [facility] Work Phone: Evaluation note* Diagnosis Acute blood loss anemia- Primary Acute posthemorrhagic anemia Angiodysplasia of colon with hemorrhage Angiodysplasia of intestine with hemorrhage COPD with chronic bronchitis (HCC) Obstructive chronic bronchitis without exacerbation [facility] Diagnosis Tobacco abuse- Primary Tobacco use disorder Acute cholecystitis with chronic cholecystitis Acute and chronic cholecystitis Gallbladder perforation Perforation of gallbladder RUQ abdominal pain Abdominal pain, right upper quadrant Abnormal ultrasound of gallbladder Nonspecific (abnormal) findings on radiological and other examination of biliary tract [facility] Diagnosis Essential hypertension- Primary Unspecified essential hypertension Chest pain, unspecified type Acute nonintractable headache, unspecified headache type GI bleeding Acute posthemorrhagic anemia Anticoagulation goal of INR 2 to 3 Encounter for therapeutic drug monitoring [facility]* Diagnosis PVD (peripheral vascular disease) (HCC)- Primary Peripheral vascular disease, unspecified [facility] Diagnosis Fall, sequela- Primary Closed fracture of multiple ribs of left side, sequela Pain Generalized pain [facility]* Diagnosis Medication management Encounter for long-term (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 of other medications Hyperlipidemia Other and unspecified hyperlipidemia [facility] noteNo assessment information [facility] Work Phone: Evaluation note* Diagnosis Ambulatory [...] Other ill-defined conditions [facility]* Diagnosis Essential hypertension Unspecified essential hypertension [facility] Diagnosis Peripheral arterial disease (HCC)- Primary Peripheral vascular disease, unspecified [facility] Diagnosis Peripheral arterial disease (HCC)- Primary Peripheral vascular disease, unspecified PVD (peripheral vascular disease) (HCC) Peripheral vascular disease, unspecified [facility] Diagnosis Onset Date Resolution Status Acute UTI acute Compression fracture of thoracic vertebra acute Inability to walk acute Multiple falls acute UTI (urinary tract infection) acute Weakness acute Chronic respiratory failure with hypoxia chronic [facility] Work Phone: Evaluation note* Diagnosis COPD with chronic bronchitis Obstructive chronic bronchitis without exacerbation [facility] Diagnosis Onset Date Resolution Status Acute UTI acute Compression fracture of thoracic vertebra acute Inability to walk acute Multiple falls acute UTI (urinary tract infection) acute Weakness acute Chronic respiratory failure with hypoxia chronic Closed fracture of right inferior pubic ramus acute Closed fracture of right superior pubic ramus acute Inability to walk acute Weakness acute Tobacco abuse [facility] Work Phone: Evaluation note* Diagnosis Onset [...] acute COPD with acute exacerbation chronic Hypertension [facility] Work Phone: Evaluation note* Diagnosis Onset [...] acute COPD with acute exacerbation chronic Hypertension [facility] Work Phone: Evaluation note* Diagnosis COPD with chronic bronchitis (HCC)- Primary Obstructive chronic bronchitis without exacerbation 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 Smoking Tobacco use disorder Closed nondisplaced fracture of pelvis with routine healing, unspecified part of pelvis, subsequent encounter Mixed hyperlipidemia Hypertension, unspecified type [facility] Diagnosis Peripheral arterial disease (HCC)- Primary Peripheral vascular disease, unspecified [facility] Diagnosis Primary hypertension Unspecified essential hypertension Other emphysema (HCC) Other emphysema Left leg pain Pain in limb Anxiety and depression Dysthymic disorder Coronary artery disease involving [place] coronary artery of [place] heart without angina pectoris Peripheral arterial disease (HCC) Peripheral vascular disease, unspecified BPH with obstruction/lower urinary tract symptoms Hypertrophy of prostate with urinary obstruction and other lower urinary tract symptoms (LUTS) Mixed hyperlipidemia Gastroesophageal reflux disease, unspecified whether esophagitis present [facility]* Diagnosis COPD (chronic obstructive pulmonary disease) ([facility])- Primary Chronic airway obstruction, not elsewhere classified Urinary retention with incomplete bladder emptying Incomplete bladder emptying Anticoagulation goal of INR 2 to 3 Encounter for therapeutic drug monitoring PVD (peripheral vascular disease) ([facility]) Peripheral vascular disease, unspecified Encounter to establish care Other reasons for seeking consultation GI bleeding- Primary Acute posthemorrhagic anemia Lupus anticoagulant disorder (HCC) Primary hypercoagulable state Dysuria- Primary GI bleeding Acute posthemorrhagic anemia Lupus anticoagulant disorder (HCC) Primary hypercoagulable state PVD (peripheral vascular disease) ([facility]) Peripheral vascular disease, unspecified IBD (inflammatory [...] pain Backache, unspecified PVD (peripheral vascular disease) ([facility])- Primary Peripheral vascular disease, unspecified COPD (chronic obstructive pulmonary disease) ([facility]) Chronic airway obstruction, not elsewhere classified [...] in stool COPD (chronic obstructive pulmonary disease) ([facility]) Chronic airway obstruction, not elsewhere classified Dark urine Other nonspecific finding on examination of urine Hospital discharge follow-up- Primary Other follow-up examination Hypertension Unspecified essential hypertension Hematoma, postoperative Hematoma complicating a procedure s/p left femoral endarterectomy/aortoiliac stenting 10/2013 Peripheral vascular disease, unspecified COPD (chronic obstructive pulmonary disease) ([facility]) Chronic airway obstruction, not elsewhere classified Melena Blood in stool Depression Depressive disorder, not elsewhere classified COPD (chronic obstructive pulmonary disease) ([facility])- Primary Chronic airway obstruction, not elsewhere [...] Coronary atherosclerosis of unspecified type of vessel, [place] or graft PVD (peripheral vascular disease) ([facility]) Peripheral vascular disease, unspecified Melena Blood in stool Depression Depressive disorder, not elsewhere classified Anticoagulation goal of INR 2 to 3- Primary Encounter for therapeutic drug monitoring PVD (peripheral vascular disease) ([facility]) Peripheral vascular disease, unspecified Hospital discharge follow-up Other follow-up examination Melena- Primary Blood in stool Essential hypertension Unspecified essential hypertension Tobacco use disorder Anxiety and depression Dysthymic disorder Essential hypertension- Primary Unspecified essential hypertension Smoker Tobacco use disorder Anxiety and depression Dysthymic disorder PVD (peripheral vascular disease) ([facility])- Primary Peripheral vascular disease, unspecified Tobacco use disorder Pain in left shoulder Pain in joint, shoulder region Lupus anticoagulant disorder ([facility]) Primary hypercoagulable state Pulmonary emphysema, unspecified emphysema type ([facility]) Need for vaccination Need for prophylactic vaccination and inoculation against unspecified single disease Pre-operative examination- Primary Preoperative examination, unspecified PVD (peripheral vascular disease) ([facility]) Peripheral vascular disease, unspecified Coronary artery disease, angina presence unspecified, unspecified vessel or lesion type, unspecified whether [place] or transplanted heart Mixed hyperlipidemia Essential hypertension Unspecified essential hypertension Pulmonary emphysema, unspecified emphysema type ([facility]) PJ (obstructive sleep apnea) Obstructive sleep apnea [...] bronchitis without exacerbation documented in this encounter [facility] note* Diagnosis COPD (chronic obstructive pulmonary disease) ([facility])- Primary Chronic airway obstruction, not elsewhere classified Urinary retention with incomplete bladder emptying Incomplete bladder emptying Anticoagulation goal of INR 2 to 3 Encounter for therapeutic drug monitoring PVD (peripheral vascular disease) ([facility]) Peripheral vascular disease, unspecified Encounter to establish care Other reasons for seeking consultation GI bleeding- Primary Acute posthemorrhagic anemia Lupus anticoagulant disorder ([facility]) Primary hypercoagulable state Dysuria- Primary GI bleeding Acute posthemorrhagic anemia Lupus anticoagulant disorder ([facility]) Primary hypercoagulable state PVD (peripheral vascular disease) ([facility]) Peripheral vascular disease, unspecified IBD (inflammatory bowel disease) Other and unspecified noninfectious gastroenteritis and colitis Blurring of vision Other specified visual disturbances Anticoagulation goal of INR 2 to 3 Encounter for therapeutic drug monitoring Hypertension Unspecified essential hypertension s/p left femoral endarterectomy/aortoiliac stenting 10/2013 Peripheral vascular disease, unspecified Elevated glucose Other abnormal glucose COPD (chronic obstructive pulmonary disease) ([facility]) Chronic airway obstruction, not elsewhere classified Back pain Backache, unspecified PVD (peripheral vascular disease) ([facility])- Primary Peripheral vascular disease, unspecified COPD (chronic obstructive pulmonary disease) ([facility]) Chronic airway obstruction, not elsewhere classified Anticoagulation goal of INR 2 to 3 Encounter for therapeutic drug monitoring Anemia due to acute blood loss Acute posthemorrhagic anemia Hypertension Unspecified essential hypertension Hyperlipidemia Other and unspecified hyperlipidemia Tobacco use disorder Ulcerative colitis (HCC)- Primary Ulcerative colitis, unspecified PVD (peripheral vascular disease) ([facility]) Peripheral vascular disease, unspecified Lupus anticoagulant disorder ([facility]) Primary hypercoagulable state Tobacco use disorder Melena Blood in stool COPD (chronic obstructive pulmonary disease) ([facility]) Chronic airway obstruction, not elsewhere classified [...] Coronary atherosclerosis of unspecified type of vessel, [place] or graft PVD (peripheral vascular disease) ([facility]) Peripheral vascular disease, unspecified Melena Blood in stool Depression Depressive disorder, not elsewhere classified Anticoagulation goal of INR 2 to 3- Primary Encounter for therapeutic drug monitoring PVD (peripheral vascular disease) ([facility]) Peripheral vascular disease, unspecified Hospital discharge follow-up Other follow-up examination Melena- Primary Blood in stool Essential hypertension Unspecified essential hypertension Tobacco use disorder Anxiety and depression Dysthymic disorder Essential hypertension- Primary Unspecified essential hypertension Smoker Tobacco use disorder Anxiety and depression Dysthymic disorder PVD (peripheral vascular disease) ([facility])- Primary Peripheral vascular disease, unspecified Tobacco use disorder Pain in left shoulder Pain in joint, shoulder region Lupus anticoagulant disorder (HCC) Primary hypercoagulable state Pulmonary emphysema, unspecified emphysema type (HCC) Need for vaccination Need for prophylactic vaccination and inoculation against unspecified single disease Pre-operative examination- Primary Preoperative examination, unspecified PVD (peripheral vascular disease) ([facility]) Peripheral vascular disease, unspecified Coronary artery disease, angina presence unspecified, unspecified vessel or lesion type, unspecified whether [place] or transplanted heart Mixed hyperlipidemia Essential hypertension [...] Pain in limb [facility] COPD (chronic obstructive pulmonary disease) ([facility])- Primary Chronic airway obstruction, not elsewhere classified Urinary retention with incomplete bladder emptying Incomplete bladder emptying Anticoagulation goal of INR 2 to 3 Encounter for therapeutic drug monitoring PVD (peripheral vascular disease) ([facility]) Peripheral vascular disease, unspecified Encounter to establish care Other reasons for seeking consultation GI bleeding- Primary Acute posthemorrhagic anemia Lupus anticoagulant disorder ([facility]) Primary hypercoagulable state Dysuria- Primary GI bleeding Acute posthemorrhagic anemia Lupus anticoagulant disorder ([facility]) Primary hypercoagulable state PVD (peripheral vascular disease) ([facility]) Peripheral vascular disease, unspecified IBD (inflammatory bowel disease) Other and unspecified noninfectious gastroenteritis and colitis Blurring of vision Other specified visual disturbances Anticoagulation goal of INR 2 to 3 Encounter for therapeutic drug monitoring Hypertension Unspecified essential hypertension s/p left femoral endarterectomy/aortoiliac stenting 10/2013 Peripheral vascular disease, unspecified Elevated glucose Other abnormal glucose COPD (chronic obstructive pulmonary disease) ([facility]) Chronic airway obstruction, not elsewhere classified Back pain Backache, unspecified PVD (peripheral vascular disease) ([facility])- Primary Peripheral vascular disease, unspecified COPD (chronic obstructive pulmonary disease) ([facility]) Chronic airway obstruction, not elsewhere classified Anticoagulation goal of INR 2 to 3 Encounter for therapeutic drug monitoring Anemia due to acute blood loss Acute posthemorrhagic anemia Hypertension Unspecified essential hypertension Hyperlipidemia Other and unspecified hyperlipidemia Tobacco use disorder Ulcerative colitis ([facility])- Primary Ulcerative colitis, unspecified PVD (peripheral vascular disease) ([facility]) Peripheral vascular disease, unspecified Lupus anticoagulant disorder ([facility]) Primary hypercoagulable state Tobacco use disorder Melena Blood in stool COPD (chronic obstructive pulmonary disease) ([facility]) Chronic airway obstruction, not elsewhere classified Dark urine Other nonspecific finding on examination of urine Hospital discharge follow-up- Primary Other follow-up examination Hypertension Unspecified essential hypertension Hematoma, postoperative Hematoma complicating a procedure s/p left femoral endarterectomy/aortoiliac stenting 10/2013 Peripheral vascular disease, unspecified COPD (chronic obstructive pulmonary disease) ([facility]) Chronic airway obstruction, not elsewhere classified Melena Blood in stool Depression Depressive disorder, not elsewhere classified COPD (chronic obstructive pulmonary disease) ([facility])- Primary Chronic airway obstruction, not elsewhere [...] Coronary atherosclerosis of unspecified type of vessel, [place] or graft PVD (peripheral vascular disease) (HCC) [...] unspecified vessel or lesion type, unspecified whether [place] or transplanted heart Mixed hyperlipidemia Essential hypertension [...] hematuria, site unspecified [facility] Diagnosis Onset Date Resolution Status Admit Date Acute diarrhea acute August 25, 2024 6:12pm Debility acute August 25 6:12pm Weakness acute August 25 6:12pm 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 August 252024 6:12pm [facility] Work Phone: Evaluation note* Diagnosis COPD [...] bleeding Acute posthemorrhagic anemia Lupus anticoagulant disorder ([facility]) Primary hypercoagulable state PVD (peripheral vascular [...] abnormal glucose COPD (chronic obstructive pulmonary disease) ([facility]) Chronic airway obstruction, not elsewhere classified Back pain Backache, unspecified PVD (peripheral vascular disease)- Primary Peripheral vascular disease, unspecified COPD (chronic obstructive pulmonary disease) ([facility]) Chronic airway obstruction, not elsewhere classified [...] in stool COPD (chronic obstructive pulmonary disease) ([facility]) Chronic airway obstruction, not elsewhere classified Dark urine Other nonspecific finding on examination of urine Hospital discharge follow-up- Primary Other follow-up examination Hypertension Unspecified essential hypertension Hematoma, postoperative Hematoma complicating a procedure s/p left femoral endarterectomy/aortoiliac stenting 10/2013 Peripheral vascular disease, unspecified COPD (chronic obstructive pulmonary disease) ([facility]) Chronic airway obstruction, not elsewhere classified Melena Blood in stool Depression Depressive disorder, not elsewhere classified COPD (chronic obstructive pulmonary disease) ([facility])- Primary Chronic airway obstruction, not elsewhere [...] Coronary atherosclerosis of unspecified type of vessel, [place] or graft PVD (peripheral vascular disease) Peripheral [...] unspecified vessel or lesion type, unspecified whether [place] or transplanted heart Mixed hyperlipidemia Essential hypertension [...] malaise and fatigue [facility] Diagnosis COPD (chronic obstructive pulmonary [...] disease, unspecified COPD (chronic obstructive pulmonary disease) ([facility]) Chronic airway obstruction, not elsewhere classified [...] in stool COPD (chronic obstructive pulmonary disease) ([facility]) Chronic airway obstruction, not elsewhere classified Dark urine Other nonspecific finding on examination of urine Hospital discharge follow-up- Primary Other follow-up examination Hypertension Unspecified essential hypertension Hematoma, postoperative Hematoma complicating a procedure s/p left femoral endarterectomy/aortoiliac stenting 10/2013 Peripheral vascular disease, unspecified COPD (chronic obstructive pulmonary disease) ([facility]) Chronic airway obstruction, not elsewhere classified Melena Blood in stool Depression Depressive disorder, not elsewhere classified COPD (chronic obstructive pulmonary disease) ([facility])- Primary Chronic airway obstruction, not elsewhere [...] Coronary atherosclerosis of unspecified type of vessel, [place] or graft PVD (peripheral vascular disease) Peripheral [...] unspecified vessel or lesion type, unspecified whether [place] or transplanted heart Mixed hyperlipidemia Essential hypertension [...] Educational circumstance Wheezing [facility] Diagnosis COPD (chronic obstructive pulmonary [...] in stool COPD (chronic obstructive pulmonary disease) ([facility]) Chronic airway obstruction, not elsewhere classified Dark urine Other nonspecific finding on examination of urine Hospital discharge follow-up- Primary Other follow-up examination Hypertension Unspecified essential hypertension Hematoma, postoperative Hematoma complicating a procedure s/p left femoral endarterectomy/aortoiliac stenting 10/2013 Peripheral vascular disease, unspecified COPD (chronic obstructive pulmonary disease) ([facility]) Chronic airway obstruction, not elsewhere classified Melena Blood in stool Depression Depressive disorder, not elsewhere classified COPD (chronic obstructive pulmonary disease) ([facility])- Primary Chronic airway obstruction, not elsewhere [...] Coronary atherosclerosis of unspecified type of vessel, [place] or graft PVD (peripheral vascular disease) Peripheral [...] unspecified vessel or lesion type, unspecified whether [place] or transplanted heart Mixed hyperlipidemia Essential hypertension [...] on supplemental oxygen [facility] Diagnosis COPD (chronic obstructive pulmonary [...] Coronary atherosclerosis of unspecified type of vessel, [place] or graft PVD (peripheral vascular disease) Peripheral [...] unspecified vessel or lesion type, unspecified whether [place] or transplanted heart Mixed hyperlipidemia Essential hypertension [...] Shortness of breath [facility] Diagnosis COPD (chronic obstructive pulmonary disease) [...] Coronary atherosclerosis of unspecified type of vessel, [place] or graft PVD (peripheral vascular disease) Peripheral [...] unspecified vessel or lesion type, unspecified whether [place] or transplanted heart Mixed hyperlipidemia Essential hypertension [...] and unspecified hyperlipidemia [facility] Author Fran Cartwright [facility] March 30, 2023 8:08pm Note Date/Time March 30, 2023 7 :32pm [facility] Medical Records Department [address] [place] [address] H&P Exam - Hospitalist 03/30/231931 MR#: [id number] Acct: [id number] Name: PEDRO PABLO SIERRA Rep #:[id number] : 1950 72 From: Fran Cartwright MD PCP: Dr. Daija Morton MD Status:ADM I N Location: [place]3 AO009-4 HPI - General General Date of Admission: [...] patient has a burning sensation with urination. [facility] Medical History (Updated 03/30/23 @ 20:04 by [...] 79.2 H, Lymph % (Auto) 9.3 L, Beaver % (Auto) 10.5 H, Eos % (Auto) [...] Sl. Cloudy, Urine pH 6.0, Ur Specific [place] 1.020, Urine Protein 100 H, Urine Glucose [...] 17:14 EDT Reading Location ID and State: [email or web address] , Service support , Shoulder X-Ray 03/30/23 15:46 IMPRESSION: Mild degenerative disease as described with no acute fracture or subluxation. Electronically Signed: Irish Velásquez MD at 17:15 EDT Reading Location ID and State: [email or web address] , Service support , Thoracic Spine CT 03/30/23 15:46 IMPRESSION: Diffuse osteopenia/osteoporosis with minimal compression fracture of T11, exact age indeterminate. No retropulsion or extension to the pedicles visualized. Underlying degenerative disease. No subluxation. Electronically Signed: Irish Velásquez MD at 17:12 EDT Reading Location ID and State: [email or web address] , Service support , Chest X-Ray 03/30/23 [...] documentation, 70minutes. Charges/Coding Visit Charges Inpatient E&M: 83495 Init Hosp L3 03/30/232007 <Electronically signed by Fran Cartwright MD> Cosigner Signature (if applicable): CC: Dr. Daija Morton MD; Dr. Fran Cartwright MD~ Signed [facility] Work Phone: History and physical note Author Андрей Cooley [facility] July 24, 2023 9:10pm Note Date/Time July 24, 2023 9 :10pm [facility] Medical Records Department [address] [place] [address] History & Physical Exam 07/24/232103 MR#: [id number] Acct: [id number] Name: PEDRO PABLO SIERRA Rep #:[id number] : 1950 73 From: Андрей Cooley MD [...] control and case management to arrange for assisted care facility. [facility] Medical History Asthma Atrial fibrillation Chronic pain [...] 74.0 H, Lymph % (Auto) 16.0 L, Beaver % (Auto) 7.3, Eos % (Auto) 1.1, [...] 17:27 EST Reading Location ID and State: [address] [place] [address] Tel , Service support , Assessment & [...] on anticoagulation Charges/Coding Visit Charges Inpatient E&M: 69845 Init Hosp L2 07/24/232109 <Electronically signed by Андрей Cooley MD> Cosigner Signature (if applicable): CC: Dr. Daija Morton MD; Dr. Андрей Cooley MD~ Signed [facility] Work Phone: History and physical note Author Lisha Talamantes [facility] Note Date/Time August 25, 2024 7:00 pm [facility] Medical Records Department [address] [place] [address] H&P Exam - Hospitalist 08/25/24 1820 MR#: [id number] Acct: [id number] Name: PEDRO PABLO SIERRA Rep #:[id number] : 1950 74 From: Lisha Talamantes DO PCP: Dr. Daija Morton MD Status:ADM I NO Location: [facility] [place]127-5 HPI - General General Date of Admission: 08/25/24 Date of Service: 08/25/24 Chief Complaint: Diarrhea/generalized weakness HPI Narrative PEDRO PABLO SIERRA, is a 74 M who presented to the emergency department [facility] on 08/25/2024 with a chief complaint of generalized weakness and diarrhea. Patient had recently been at [facility] and was discharged about 5 [...] Chest x-ray is unremarkable for acute findings. [facility] Medical History Compression fx, lumbar spine [...] 78.4 H, Lymph % (Auto) 10.3 L, Beaver % (Auto) 9.9, Eos % (Auto) 0.3, [...] the current livingenvironment -Was recently discharged from [facility] however patient wasadamant that he [...] need clarified Charges/Coding Visit Charges Inpatient E&M: 07946 Init Hosp L2 08/25/241899 <Electronically signed by Lisha Talamantes DO> Cosigner Signature (if applicable): CC: Dr. Daija Morton MD; Dr. Lisha Talamantes DO~ Signed [facility] Work Phone: History and physical note Author Shilpa Contreras [facility] Note Date/Time December 13, 2024 8:50 pm [facility] Medical Records Department [address] [place] [address] H&P Exam - Hospitalist 12/13/241948 MR#: [id number] Acct: [id number] Name: PEDRO PABLO SIERRA Rep #:[id number] : 1950 74 From: Shilpa Contreras MD PCP: Dr. Daija Morton MD Status:ADM I N Location: [place] [address] HPI - General General Date of Admission: [...] PJ, Tobacco use who presents to the [facility] ED on 12/13/2024 with history of [...] component requested ABG and will trial BiPAP. [facility] Medical History Weakness Debility Failure to [...] % (Auto) 67.3, Lymph % (Auto) 19.5, Beaver% (Auto) 8.9, Eos % (Auto) 3.0, Baso [...] significant change since last exam. Reading Location: [id number] Assessment & Plan Assessment/Plan (1) COPD exacerbation: [...] PJ, Tobacco use who presents to the [facility] ED on 12/13/2024 with history of [...] 0.9. #16. CODE status: Patient healthcare power senior trial attorney and living will are not in [...] 16 minutes. Charges/Coding Visit Charges Inpatient E&M: 41362 Init Hosp L3 Procedures Hospitalists Procedures: 08860 Advncd Care Plan 30 Min 12/13/242049 <Electronically signed by Shilpa Contreras MD> Cosigner Signature (if applicable): CC: Dr. Shilpa Contreras MD; Dr. Daija Morton MD~ Signed [facility] Work Phone: History and physical note Author Frankie Galindo [facility] Note Date/Time January 05, 2025 2:02 pm [facility] Medical Records Department [address] [place] [address] H&P Exam - Hospitalist 01/05/25 1336 MR#: [id number] Acct: [id number] Name: PEDRO PABLO SIERRA Rep #:[id number] : 1950 74 From: Frankie Galindo MD PCP: Dr. Lorraine Mena MD Status:A DM IN Location: [place] [address] HPI - General General Date of Admission: 01/05/25 Date of Service: 01/05/25 Chief Complaint: Suspected PEG tomorrow found HPI Narrative PEDRO PABLO SIERRA, is a 74 M with recent diagnosis of acute left MCA CVA discharged to a assisted facility. Patient had a PEG tube placed on 12/24/2024. Patient was brought to the emergency department with suspicion of PEG tube malfunctioning. Patient underwent imaging studies in the ED his PEG tube was found to be functioning as designed. Patient was also noted to have elevated blood pressure and route to the hospital. Physical examination in the ED did reveal significant bilateral rhonchi. Patient also became hypoxic necessitatingpatient being placed on Ventimask suspicion of aspiration pneumonia was made. 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 Smoking Status: Former smoker alcohol intake: former details: Former alcoholic quit several years ago substance use type: does not use caffeine: Yes Type: coffee Number of servings: 3 ROS ROS Narrative Unable to obtain patient is aphasic Vital Signs Vital Signs Vital Signs: 01/05/25 09:38 01/05/25 10:37 01/05/25 11:00 Temperature 96.6 F L Temperature Source Temporal Pulse Rate 69 58 L Respiratory Rate 23 H 16 Blood Pressure 183/75 H 164/127 H 180/75 H Blood Pressure Mean 111 139 110 Pulse Ox 91 92 Oxygen Delivery Method Nasal Cannula Nasal Cannula Oxygen Flow Rate (L/min) 2 2 Fraction of Inspired Oxygen (FIO2) 01/05/25 11:27 01/05/25 11:34 01/05/25 11:40 Temperature Temperature Source Pulse Rate 58 L 57 L Respiratory Rate 20 H 19 H Blood Pressure 193/75 H Blood Pressure Mean 114 Pulse Ox 78 91 Oxygen Delivery Method Nasal Cannula Simple Mask Oxygen Flow Rate (L/min) 5 7 Fraction of Inspired Oxygen (FIO2) 01/05/25 11:47 01/05/25 12:24 01/05/25 13:27 Temperature Temperature Source Pulse Rate 78 79 97 Respiratory Rate 20 H 22 H 34 H Blood Pressure 182/68 H Blood Pressure Mean 106 Pulse Ox 93 93 Oxygen Delivery Method Nasal Cannula Oxygen Flow Rate (L/min) 5 Fraction of Inspired Oxygen (FIO2) 01/05/25 13:33 Temperature Temperature Source Pulse Rate Respiratory Rate Blood Pressure Blood Pressure Mean Pulse Ox 95 Oxygen Delivery Method Venturi Mask Oxygen Flow Rate (L/min) 10 Fraction of Inspired Oxygen (FIO2) 35 Weight Weight: 75.4 kg Body Mass Index (BMI) 22.5 Physical Exam Narrative GENERAL: On a Ventimask HEENT: Atraumatic; normocephalic EYES; Anicteric, Normal Conjunctiva NECK; supple, normal thyroid, RESPIRATORY: Diminished to auscultation, bilateral rhonchi CARDIOVASCULAR: Regular S1 S2, GI: soft, normoactive bowel sounds, : No Renal angle tenderness; EXTREMITIES: No edema, no clubbing, MUSCULOSKELETAL: no muscle wasting NEURO: Awake; aphasic SKIN: No Rash PSYCH; Flat affect Results Lab / Micro Data 01/05/25 09:45 01/05/25 09:45 Labs: Laboratory Results - last 24 hr 01/05/25 09:45: WBC 10.2, RBC 4.53 L, Hgb 12.6 L, Hct 39.6 L, MCV 87.4, MCH 27.8, MCHC 31.8 L, RDW Std Deviation 48.0 H, RDW Coeff of Aly 15.1 H, Plt Count 462 H, MPV 9.8, Immature Gran % (Auto) 0.500, Neut % (Auto) 76.7 H, Lymph % (Auto) 14.2 L, Beaver % (Auto) 7.0, Eos % (Auto) 1.2, Baso % (Auto) 0.4, Absolute Neuts (auto) 7.8 H, Absolute Lymphs (auto) 1.45, Nucleated RBC % 0, Sodium 135, Potassium 4.3, Chloride 93 L, Carbon Dioxide 28.4, Anion Gap 14, BUN 24 H, Creatinine 1.25 H, Estim Creat Clear Calc 54.46, Est GFR (MDRD) Non-Af 60, BUN/Creatinine Ratio 18.8, Glucose 123 H, Lactic Acid 1.1, Calcium 10.3, Total Bilirubin 0.25, AST 32, ALT 33, Alkaline Phosphatase 83, Total Protein 7.8, Albumin 4.6, Globulin 3.2, Albumin/Globulin Ratio 1.4 ABG Data ABG results: ABG 01/05/25 13:14 Specimen Type ART Sample Site L Radial pH 7.45 Bicarbonate Actual 33.0 H Total CO2 35 Base Excess 9 H O2 Saturation 88 L O2 % 6.0 ABG pCO2 47.9 H ABG pO2 52 L Mayuri Test Positive O2 Delivery Device Cannula Vent Mode Not entered Imaging Radiology Impression Chest X-Ray 01/05/25 09:59 IMPRESSION: COPD. No acute findings. Reading Location: [id number] X-Ray 01/05/25 13:02 IMPRESSION: A PEG tube tip is projected in the region of the stomach. Contrast material is identified within the stomach. There is no extravasation of the contrast. Reading Location: [id number] Assessment & Plan Assessment/Plan (1) Aspiration into respiratory tract: (2) Bronchospasm, acute: PLAN: Plan Patient is a 74-year-old gentleman with recent left MCA CVA with resultant aphasia and dysphagia requiring PEG tube, who was transferred from [facility] with suspicion of PEG tube malfunctioning. Was also found to have elevated blood pressure. A clinical suspicion of aspiration pneumonia was made in the ED patient admitted to a monitored bed for subsequent management 1. Suspected aspiration pneumonia ? Admitted to a monitored bed patient started on antibiotic therapy?Zosyn. Did obtain sputum as well as blood cultures in addition to COVID and viral respiratory panel 3. Acute hypoxic respiratory failure ? Secondary to patient aspiration pneumonia. Patient had to be placed on Ventimask after his oxygen saturation was reported to be in the 70s. Oxygen currently being titrated to keep saturation greater than 90 3. 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 Paroxysmal atrial fibrillation ? Rate controlled on systemic anticoagulation with apixaban via PEG tube continue 5. Suspected PEG tube malfunction ? Imaging studies obtained in the ED did show A PEG tube tip is projected in theregion of the stomach. Contrast material is identified within the stomach. There is no extravasation of the contrast.. Patient PEG tube functioning as designed. Will resume tube feeding 6. COPD ? Did continue patient aerosol treatment as well as prednisone 7. Accelerated hypertension ? Patient blood pressure on admission was 193/75. Continue with home meds also added hydralazine as needed for systolic blood pressure greater than 160 8. Acute renal insufficiency ? Patient creatinine from 12/24/2024 was 0.98, creatinine on admission was 1.25 started on IV hydration. Repeat BMP ordered for a.m. 9. Dyslipidemia ?Patient is on statin therapy, continued at home dose 10. Seizure disorder ? Patient is on, monitor. Continue BPH with lower urinary obstructive symptoms - Patient treated with tamsulosin 12. Depression with anxiety ? Patient is on mirtazapine at night continue 13. DVT prophylaxis ? Currently on apixaban CODE STATUS from F documentation DNR CCA no intubation reordered Time spent in the patient's overall evaluation,decision-making process, review of diagnostic data, adjustment of management, discussion with other providers, nursing nursing and ancillary staff involved in patient's care documentation, 78 Minutes Charges/Coding Visit Charges Inpatient E&M: 97483 Init Hosp 01/05/25 1402 <Electronically signed by Frankie Galindo MD> Joyandrea Signature (if applicable): CC: Dr. Frankie Galindo MD; Dr. Lorraine Mena MD~ Signed [facility] Work Phone: [phone] Work Phone: [phone] Work Phone: [phone] Work Phone: [phone] Work Phone: [phone] Work Phone: [phone] Work Phone: [phone] Discharge instructions Additional Instructions Ice to your rib cage. Support your sore ribs with a pillow. Your chest x-ray did not show any broken ribs sometimes however there are small cracks in the ribs we cannot see on the x-ray. [place] for more severe pain. Otherwise use Tylenol. If you are using the pain medication [place] then do not use Tylenol with it. Follow-up with your doctor as needed. Keep the wounds on your forearms clean. Clean daily with soap and water. Patient apply antibiotic ointment. Watch for any signs of infection if seen follow-up.[facility] Work Phone: Hospital Discharge instructions Additional Instructions Please use the walker and follow-up with your primary care doctor.[facility] Work Phone: Progress note No data available for this section [facility] Reason for referral (narrative)* Outpatient Procedure (Routine) - Closed Specialty Diagnoses / Procedures Referred By Morris dixon [facility] Diagnoses COPD with chronic bronchitis (HCC) Procedures OXIMETRY WITH AMBULATION NONINVASIVE EAR/PULSE OXIMETRY Emilie Higuera PA-C [address] [address] [address] [place] [address] [place] [address] Referral ID Status Reason Start Date Expiration Date V isits Requested Visits Authorized [id number] Closed Auto-Generate d Referral 11/05/2021 06/18/2022 1 1 * Outpatient Procedure (Routine) - Closed Specialty Diagnoses / Procedures Referred By Contac t Ref[facility] Diagnoses COPD with chronic bronchitis (HCC) Procedures LUNG DIFFUSION CAPACITY (DLCO) DIFFUSING CAPACITY Emilie Jauregui PA-C [address] [address] Referral ID Status Reason Start Date Expiration Date V isits Requested Visits Authorized [id number] Closed Auto-Generate d Referral 11/05/2021 06/18/2022 1 1 * Outpatient Procedure (Routine) - Closed Specialty Diagnoses / Procedures Referred By Contac t Ref[facility] Diagnoses COPD with chronic bronchitis (HCC) Procedures SPIROMETRY BASELINE ONLY SPMTRY W/VC EXPIRATORY BRIAN W/WO MXML VOL VNTJ Emilie Jauregui PA-C [address] [address] Referral ID Status Reason Start Date Expiration Date V isits Requested Visits Authorized [id number] Closed Auto-Generate d Referral 11/05/2021 06/18/2022 1 [facility] Outpatient Procedure (Routine) - Pending Review Specialty Diagnoses / Procedures Referred By Contac t Referred To Contact [facility] Diagnoses Essential hypertension Chest pain, unspecified type Procedures ECG COMPLETE ECG ROUTINE ECG W/LEAST 12 LDS W/I&R Anjel Brgaa APRN.[employer] [address] [place] [address] [facility] [address] [place] [address] Referral ID Status Reason Start Date Expiration Date Visits Requested Visits Authorized [id number] Pending Review Auto-Generat ed Referral 01/28/2022 01/28/2023 1 1 [facility] for referral (narrative)* Outpatient Procedure (Routine) - Authorized Specialty Diagnoses / Procedures Referred By Contac t Referred To Contact [facility] Diagnoses PVD (peripheral vascular disease) (HCC) Procedures PVR LEG COREY VAS LAB PVR LEG COREY VAS LAB NON-INVASIVE PHYSIOLOGIC STUDY EXTREMITY [address] [place] [address] [place] [address] [address] Referral ID Status Reason Start Date Expiration Date Visits Requested Visits Authorized [id number] Authorized Auto-Generat ed Referral 01/31/2022 01/31/2023 1 1 [facility] for referral (narrative)* Outpatient Procedure (Routine) - Authorized Specialty Diagnoses / Procedures Referred By Contac t Referred To Contact [facility] Diagnoses Peripheral arterial disease (HCC) PVD (peripheral vascular disease) (HCC) Procedures PVR LEG COREY VAS LAB NON-INVASIVE PHYSIOLOGIC STUDY EXTREMITY [address] [place] [address] [place] [address] [address] Referral ID Status Reason Start Date Expiration Date Visits Requested Visits Authorized [id number] Authorized Auto-Generat ed Referral 12/26/2022 12/26/2023 1 1 [facility] for referral (narrative)* Outpatient Procedure (Routine) - Authorized Specialty Diagnoses / Procedures Referred By Contac t Referred To Contact [facility] Diagnoses Peripheral arterial disease (HCC) Procedures PVR LEG COREY VAS LAB NON-INVASIVE PHYSIOLOGIC STUDY EXTREMITY [address] [place] [address] [place] [address] [facility] [address] [place] [address] Referral ID Status Reason Start Date Expiration Date Visits Requested Visits Authorized [id number] Authorized Auto-Generat ed Referral 01/02/2024 01/01/2025 1 1 [facility] for referral (narrative)No reason for referral information availableWBucyrus [facility] Hospital Work Phone: Summary Purpose Family History [...] FoundDocuments on File Type Date Recorded 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 Advance Directive(s) 10/24/2019 3:38 PM [...] Documents on File Type Date Recorded 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 Advance Directive(s) 08/29/2021 6:53 PM Advance Directive(s) 08/22/2021 7:53 PM Advance Directive(s) 04/10/2020 4:06 PM Advance Directive(s) 12/17/2019 10:49 AM Advance Directive(s) 10/24/2019 3:38 PM Advance Directive(s) 10/17/2019 9:43 AM Advance Directive(s) 10/08/2019 7:18 AM Advance Directive(s) 09/04/2019 1:38 PM Advance Directive(s) 02/07/2016 12:11 AM Advance Directive Response Recorded Date/ Time Name of Medical Power of Yacht Rigger eloina stephens e- ex August 12, 2021 1:39am Name of Medical Power of Yacht Rigger Joseph Burrell August 18, 2021 11:56pm Advance Directives Yes March 22, 2016 4:03pm Living Will No September 17, 2021 5:48pm Power of Yacht Rigger Yes September 17 5:48pm Advance Directive Response Recorded Date/ Time Name of Medical Power of Yacht Rigger eloina stephens e- ex August 12, 2021 1:39am Name of Medical Power of Yacht Rigger Joseph Burrell August 18, 2021 11:56pm Name of Medical Power of Yacht Rigger joseph burrell September 17, 2021 5:48pm Advance Directives Yes March 22, 2016 4:03pm Living Will No October 08, 2021 2:20pm Power of Yacht Rigger No October 08 2:20pm Documents on File Type Date Recorded 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 Advance Directive(s) 08/29/2021 6:53 PM [...] Date/ Time Name of Medical Power of Yacht Rigger eloina stephens e- ex August 12, 2021 1:39am Name of Medical Power of Yacht Rigger Joseph Burrell August 18, 2021 11:56pm Name of Medical Power of Yacht Rigger joseph burrell September 17, 2021 5:48pm Advance Directives Yes March 22, 2016 4:03pm Living Will Yes November 25, 2021 5 :33pm Power of Yacht Rigger Yes November 25, 2021 5:33pm Advance Directive Response Recorded Date/ Time Name of Medical Power of Yacht Rigger eloina stephens e- ex August 12, 2021 1:39am Name of Medical Power of Yacht Rigger Joseph Burrell August 18, 2021 11:56pm Name of Medical Power of Yacht Rigger joseph burrell September 17, 2021 5:48pm Advance Directives Yes March 22, 2016 4:03pm Living Will Yes November 25, 2021 1 1:06pm Power of Yacht Rigger No November 25, 2021 11:06pm Advance Directive Response Recorded Date/ Time Name of Medical Power of Yacht Rigger Joseph Burrell August 18, 2021 11:56pm Name of Medical Power of Yacht Rigger joseph burrell September 17, 2021 5:48pm Name of Medical Power of Yacht Rigger MICHELLE RICHMOND November 25, 2021 5:33pm Advance Directives Yes March 22, 2016 4:03pm Living Will Yes November 25, 2021 1 1:06pm Power of Yacht Rigger No November 25, 2021 11:06pm Advance Directive Response Recorded Date/ Time Name of Medical Power of Yacht Rigger joseph burrell September 17, 2021 5:48pm Name of Medical Power of Yacht Rigger MICHELLE RICHMOND November 25, 2021 5:33pm Advance Directives Yes March 22, 2016 4:03pm Living Will Yes November 25, 2021 1 1:06pm Power of Yacht Rigger No November 25, 2021 11:06pm Advance Directive Response Recorded Date/ Time Name of Medical Power of Yacht Rigger MICHELLE RICHMOND November 25, 2021 5:33pm Advance Directives Yes March 22, 2016 4:03pm Living Will Yes November 25, 2021 1 1:06pm Power of Yacht Rigger No November 25, 2021 11:06pm Advance Directive Response Recorded Date/ Time Name of Medical Power of Yacht Rigger MICHELLE RICHMOND November 25, 2021 5:33pm Name of Medical Power of Yacht Rigger recalled January 28, 2022 3:14pm Advance Directives Yes March 22, 2016 4:03pm Living Will Yes January 28 3:14pm Power of Yacht Rigger Yes January 28, 2 022 3:14pm Documents on File Type Date Recorded 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 Advance Directive(s) 10/24/2019 3:38 PM Advance Directive Response Recorded Date/ Time Name of Medical Power of Yacht Rigger MICHELLE RICHMOND November 25, 2021 5:33pm Name of Medical Power of Yacht Rigger recalled January 28, 2022 3:14pm Advance Directives Yes March 22, 2016 4:03pm Living Will Yes March 02, 2022 3:17pm Power of Yacht Rigger No February 3:17pm Advance Directive Response Recorded Date/ Time Name of Medical Power of Yacht Rigger MICHELLE RICHMOND November 25, 2021 5:33pm Name of Medical Power of Yacht Rigger recalled January 28, 2022 3:14pm Advance Directives Yes March 22, 2016 4:03pm Living Will No March 07, 2022 5:26pm Power of Yacht Rigger No February 5:26pm Advance Directive Response Recorded Date/ Time Name of Medical Power of Yacht Rigger MICHELLE RICHMOND November 25, 2021 5:33pm Name of Medical Power of Yacht Rigger recalled January 28, 2022 3:14pm Advance Directives Yes March 22, 2016 4:03pm Living Will No March 08, 2022 8:17pm Power of Yacht Rigger No February 8:17pm Advance Directive Response Recorded Date/ Time Advance Directives Yes March 22, 2016 3:03pm Living Will No March 08, 2022 7:17pm Power of Yacht Rigger No February 7:17pm Advance Directive Response Recorded Date/ Time Advance Directives Yes March 22, 2016 4:03pm Living Will No October 21, 2022 6: 58pm Power of Yacht Rigger No October 21, 2022 6:58pm Latest Code [...] Date/ Time Name of Medical Power of Yacht Rigger JOSEPH Euceda December 31, 2022 3:19pm Advance Directives Yes March 22, 2016 4:03pm Living Will Yes December 31, 2022 3:19pm Power of Yacht Rigger Yes December 31 3:19pm Advance Directive Response Recorded Date/ Time Name of Medical Power of Yacht Rigger JOSEPH Euceda December 31, 2022 3:19pm Name of Medical Power of Yacht Rigger Joseph February 17, 2023 11:06pm Advance Directives Yes March 22, 2016 4:03pm Living Will Yes February 17 11:06pm Power of Yacht Rigger Yes February 17, 2023 11:06pm Advance Directive Response Recorded Date/ Time Name of Medical Power of Yacht Rigger Joseph Burrell March 29, 2023 7:22pm Advance Directives Yes March 22, 2016 4:03pm Living Will No March 30 3:32pm Power of Yacht Rigger No March 30, 2023 3:32pm Name of Medical Power of Yacht Rigger JOSEPH Euceda December 31, 2022 3:19pm Name of Medical Power of Yacht Rigger Joseph February 17, 2023 11:06pm Advance Directive Response Recorded Date/ Time Name of Medical Power of Yacht Rigger Joseph Burrell March 29, 2023 7:22pm Advance Directives Yes March 22, 2016 4:03pm Living Will No March 30 9:04pm Power of Yacht Rigger No March 30, 2023 9:04pm Name of Medical Power of Yacht Rigger JOSEPH Euceda December 31, 2022 3:19pm Name of Medical Power of Yacht Rigger Joseph February 17, 2023 11:06pm Advance Directive Response Recorded Date/ Time Name of Medical Power of Yacht Rigger Joseph Burrell March 29, 2023 6:22pm Advance Directives Yes March 22, 2016 3:03pm Living Will No March 30 8:04pm Power of Yacht Rigger No March 30, 2023 8:04pm Advance Directive Response Recorded Date/ Time Name of Medical Power of Yacht Rigger Joseph Burrell March 29, 2023 6:22pm Name of Medical Power of Yacht Rigger Joseph Burrell July 24, 2023 5:27pm Advance Directives Yes March 22, 2016 3:03pm Living Will Yes July 24 5:27pm Power of Yacht Rigger Yes July 24, 2023 5:27pm Advance Directive Response Recorded Date/ Time Name of Medical Power of Yacht Rigger Joseph Burrell July 24, 2023 9:55pm Advance Directives Yes March 22, 2016 3:03pm Living Will No July 30 8:34pm Power of Yacht Rigger No July 30, 2023 8:34pm Advance Directive Response Recorded Date/ Time Name of Medical Power of Yacht Rigger Joseph Burrell July 24, 2023 9:55pm Name of Medical Power of Yacht Rigger Nahed Roxy July 31, 2023 12:57am Advance Directives Yes March 22, 2016 3:03pm Living Will No July 31 12:57am Power of Yacht Rigger Yes July 31, 2023 12:57am Date Activated Date Inactivated Comments 08/23/2021 7:55 AM 09/13/2021 7:43 PM Question Answer Comments Full Code Order Discussed With: Patient Date Activated Date Inactivated Comments 10/01/2020 11:51 PM 08/21/2021 11:26 AM Advance Directive Response Recorded Date/ Time Name of Medical Power of Yacht Rigger Joseph Burrell March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 10:27am Current use of continuous churn buttermaker anticoagulation January 23, 2025 10:27am CVA (cerebral vascular accident) [facility] 7th, 2025 10:27am Debility January 23, 2025 10: 27am History of atrial fibrillation January 10:27am Seizure disorder January 23, 2025 10: 27am Multiple falls January 23, 2025 10: 27am Chief Complaint Admit Date LABOWRK October 16, 2024 5:0 0am SENIOR CARE LAB WORK November 05, 2024 5:0 0am SENIOR CARE LAB WORK December 02, 2024 5: 00am [...] am LABWORK December 30, 2024 5:00 am LAB WORK December 31, 2024 5:24 am Admission exam H&P December 31, 2024 3:44 pm fall January 03, 2025 6:24 am SUSPECTED ASPIRATION January 05, 2025 1:3 6pm SUSPECTED ASPIRATION January 05, 2025 7:4 6pm Arrhythmia January 05, 2025 9:56 pm SUSPECTED ASPIRATION January 06, 2025 12: 00am SUSPECTED ASPIRATION January 07, 2025 5:3 9pm SUSPECTED ASPIRATION January 07, 2025 7:4 4pm SUSPECTED ASPIRATION January 08, 2025 3:5 3pm Re-admission exam January 09, 2025 11:1 2am LAB WORK January 13, 2025 4:00 am Hosiptal FU, Carotid disease January 21, 2025 8:48am STROKE January 23, 2025 10: 27am Chief Complaint Admit Date LABOWRK October 16, 2024 5:0 0am SENIOR CARE LAB WORK November 05, 2024 5:0 0am SENIOR CARE LAB WORK December 02, 2024 5: 00am [...] STROKELIKE SYMPTOMS December 26, 2024 7:00 am Admission exam H&P December 27, 2024 11:1 0am LABWORK December 30, 2024 5:00 am LAB WORK December 31, 2024 5:24 am Admission exam H&P December 31, 2024 3:44 pm fall January 03, 2025 6:24 am SUSPECTED ASPIRATION January 05, 2025 1:3 6pm SUSPECTED ASPIRATION January 05, 2025 7:4 6pm Arrhythmia January 05, 2025 9:56 pm SUSPECTED ASPIRATION January 06, 2025 12: 00am SUSPECTED ASPIRATION January 07, 2025 5:3 9pm SUSPECTED ASPIRATION January 07, 2025 7:4 4pm SUSPECTED ASPIRATION January 08, 2025 3:5 3pm Re-admission exam January 09, 2025 11:1 2am LAB WORK January 13, 2025 4:00 am Hosiptal FU, Carotid disease January 21, 2025 8:48am STROKE January 23, 2025 10: 27am Chief Complaint Admit Date SENIOR CARE LAB WORK November 05, 2024 5:0 0am SENIOR CARE LAB WORK December 02, 2024 5: 00am [...] STROKELIKE SYMPTOMS December 26, 2024 7:00 am Admission exam H&P December 27, 2024 11:1 0am LABWORK December 30, 2024 5:00 am LAB WORK December 31, 2024 5:24 am Admission exam H&P December 31, 2024 3:44 pm fall January 03, 2025 6:24 am SUSPECTED ASPIRATION January 05, 2025 1:3 6pm SUSPECTED ASPIRATION January 05, 2025 7:4 6pm Arrhythmia January 05, 2025 9:56 pm SUSPECTED ASPIRATION January 06, 2025 12: 00am SUSPECTED ASPIRATION January 07, 2025 5:3 9pm SUSPECTED ASPIRATION January 07, 2025 7:4 4pm SUSPECTED ASPIRATION January 08, 2025 3:5 3pm Re-admission exam January 09, 2025 11:1 2am LAB WORK January 13, 2025 4:00 am LAB WORK January 20, 2025 5:0 0am Hosiptal FU, Carotid disease January 21, 2025 8:48am STROKE January 23, 2025 10: 27am LABWORK January 27, 2025 5: 00am LAB WORK February 03, 2025 5: 00am New Concern February 04, 2025 6: 15pm LAB WORK February 09, 2025 7: 50pm LAB WORK February 11, 2025 4: 00am Health Concerns Infection Onset Date Last Indicated Resolved Time COVID-19 Rule-Out 08/21/2021 08/21/2021 08/21/2021 10:06 PM EST COVID-19 Rule-Out 08/27/2021 08/27/2021 08/27/2021 5:32 PM EST COVID-19 Rule-Out 09/03/2021 09/03/2021 09/03/2021 3:30 PM EDT Reason for Referral Specialty Diagnoses / Procedures Referred By Contac t Referred To Contact Ent - Otolaryngology Diagnoses Chronic sore throat Smoking Procedures CONSULT TO ENT OFFICE/OUTPATIENT [facility] 60 MINUTES Rebekah Luu PA-C [address] [place] [address] Referral ID Status Reason Start Date Expiration Date Visits Requested Visits Authorized [id number] Authorized PCP Requested Referral 11/21/2023 11/20/2024 1 1 Specialty Diagnoses / Procedures Referred By Contac t Referred To Contact Diagnoses COPD with chronic bronchitis (HCC) Rebekah Luu PA-C [address] [place] [address] Referral ID Status Reason Start Date Expiration Date Visits Re quested Visits Authorized [id number] Closed 1 1 Specialty Diagnoses / Procedures Referred By Contac t Referred To Contact Marquita Braga APRN.PANAMA HAT SMEARER [address] [place] [address] Referral ID Status Reason Start Date Expiration Date V isits Requested Visits Authorized [id number] Authorized 08/29/2022 06/18/2023 1 1 Specialty Diagnoses / Procedures Referred By Contac t Referred To Contact Harriett Albert APRN.LASER SET UP OPERATOR [address] [place] [address] Referral ID Status Reason Start Date Expiration Date Visits Re quested Visits Authorized [id number] Closed 1 1 Specialty Diagnoses / Procedures Referred By Contac t Referred To Contact Gastroenterology Diagnoses Acute blood loss anemia Angiodysplasia of colon with hemorrhage Procedures CONSULT TO GASTROENTEROLOGY OFFICE/OUTPATIENT [facility] 60-74 MINUTES Harriett Albert APRN.LASER SET UP OPERATOR [address] [place] [address] Referral ID Status Reason Start Date Expiration Date Visits Requested Visits Authorized [id number] Pending Review PCP Requested Referral 01/14/2022 01/14/2023 1 1 Specialty Diagnoses / Procedures Referred By Contac t Referred To Contact Anjel Braga APRN.PANAMA HAT SMEARER [address] [place] [address] Referral ID Status Reason Start Date Expiration Date Visits Re quested Visits Authorized [id number] Closed 1 1 Medications Administered Section Administered [...] section and content) DATE CREATED AUTHOR 01/09/2020 [facility] DATE CREATED AUTHOR AUTHOR'S ORGANIZ ATION 04/03/2020 [facility] DATE CREATED AUTHOR AUTHOR'S ORGANIZ ATION 04/11/2020 [facility] DATE CREATED AUTHOR AUTHOR'S ORGANIZ ATION 01/26/2022 [facility] DATE CREATED AUTHOR AUTHOR'S ORGANIZ ATION 07/16/2023 [facility] DATE CREATED AUTHOR AUTHOR'S ORGANIZ ATION 12/28/2024 [facility] DATE CREATED AUTHOR AUTHOR'S ORGANIZ ATION 03/12/2025 [facility] Source Comments (unrecognize d section and content) In the event this informatio n is protected by the Federal Confidentiality of Alcohol and Drug Abuse Patient Records regulations: The Federal rules restrict any use of the information to criminally investigate or prosecute any alcohol or drug abuse patient.[facility] the event this information is protected by the Federal Confidentiality of Alcohol and Drug Abuse Patient Records regulations: The Federal rules restrict any use of the information to criminally investigate or prosecute any alcohol or drug abuse patient.[facility] the event this information is protected by the Federal Confidentiality of Alcohol and Drug Abuse Patient Records regulations: The Federal rules restrict any use of the information to criminally investigate or prosecute any alcohol or drug abuse patient.[facility] the event this information is protected by the Federal Confidentiality of Alcohol and Drug Abuse Patient Records regulations: The Federal rules restrict any use of the information to criminally investigate or prosecute any alcohol or drug abuse patient.[facility] the event this information is protected by the Federal Confidentiality of Alcohol and Drug Abuse Patient Records regulations: The Federal rules restrict any use of the information to criminally investigate or prosecute any alcohol or drug abuse patient.[facility] the event this information is protected by the Federal Confidentiality of Alcohol and Drug Abuse Patient Records regulations: The Federal rules restrict any use of the information to criminally investigate or prosecute any alcohol or drug abuse patient.[facility] the event this information is protected by the Federal Confidentiality of Alcohol and Drug Abuse Patient Records regulations: The Federal rules restrict any use of the information to criminally investigate or prosecute any alcohol or drug abuse patient.[facility] the event this information is protected by the Federal Confidentiality of Alcohol and Drug Abuse Patient Records regulations: The Federal rules restrict any use of the information to criminally investigate or prosecute any alcohol or drug abuse patient.[facility] the event this information is protected by the Federal Confidentiality of Alcohol and Drug Abuse Patient Records regulations: The Federal rules restrict any use of the information to criminally investigate or prosecute any alcohol or drug abuse patient.[facility] the event this information is protected by the Federal Confidentiality of Alcohol and Drug Abuse Patient Records regulations: The Federal rules restrict any use of the information to criminally investigate or prosecute any alcohol or drug abuse patient.[facility] the event this information is protected by the Federal Confidentiality of Alcohol and Drug Abuse Patient Records regulations: The Federal rules restrict any use of the information to criminally investigate or prosecute any alcohol or drug abuse patient.[facility] the event this information is protected by the Federal Confidentiality of Alcohol and Drug Abuse Patient Records regulations: The Federal rules restrict any use of the information to criminally investigate or prosecute any alcohol or drug abuse patient.[facility] the event this information is protected by the Federal Confidentiality of Alcohol and Drug Abuse Patient Records regulations: The Federal rules restrict any use of the information to criminally investigate or prosecute any alcohol or drug abuse patient.[facility] HospitalIn the event this information is protected by the Federal Confidentiality of Alcohol and Drug Abuse Patient Records regulations: The Federal rules restrict any use of the information to criminally investigate or prosecute any alcohol or drug abuse patient.[facility]In the event this information is protected by the Federal Confidentiality of Alcohol and Drug Abuse Patient Records regulations: The Federal rules restrict any use of the information to criminally investigate or prosecute any alcohol or drug abuse patient.[facility]In the event this information is protected by the Federal Confidentiality of Alcohol and Drug Abuse Patient Records regulations: The Federal rules restrict any use of the information to criminally investigate or prosecute any alcohol or drug abuse patient.[facility]In the event this information is protected by the Federal Confidentiality of Alcohol and Drug Abuse Patient Records regulations: The Federal rules restrict any use of the information to criminally investigate or prosecute any alcohol or drug abuse patient.[facility]In the event this information is protected by the Federal Confidentiality of Alcohol and Drug Abuse Patient Records regulations: The Federal rules restrict any use of the information to criminally investigate or prosecute any alcohol or drug abuse patient.[facility]In the event this information is protected by the Federal Confidentiality of Alcohol and Drug Abuse Patient Records regulations: The Federal rules restrict any use of the information to criminally investigate or prosecute any alcohol or drug abuse patient.[facility]In the event this information is protected by the Federal Confidentiality of Alcohol and Drug Abuse Patient Records regulations: The Federal rules restrict any use of the information to criminally investigate or prosecute any alcohol or drug abuse patient.[facility]In the event this information is protected by the Federal Confidentiality of Alcohol and Drug Abuse Patient Records regulations: The Federal rules restrict any use of the information to criminally investigate or prosecute any alcohol or drug abuse patient.[facility]In the event this information is protected by the Federal Confidentiality of Alcohol and Drug Abuse Patient Records regulations: The Federal rules restrict any use of the information to criminally investigate or prosecute any alcohol or drug abuse patient.[facility]In the event this information is protected by the Federal Confidentiality of Alcohol and Drug Abuse Patient Records regulations: The Federal rules restrict any use of the information to criminally investigate or prosecute any alcohol or drug abuse patient.[facility]In the event this information is protected by the Federal Confidentiality of Alcohol and Drug Abuse Patient Records regulations: The Federal rules restrict any use of the information to criminally investigate or prosecute any alcohol or drug abuse patient.[facility]In the event this information is protected by the Federal Confidentiality of Alcohol and Drug Abuse Patient Records regulations: The Federal rules restrict any use of the information to criminally investigate or prosecute any alcohol or drug abuse patient.[facility]In the event this information is protected by the Federal Confidentiality of Alcohol and Drug Abuse Patient Records regulations: The Federal rules restrict any use of the information to criminally investigate or prosecute any alcohol or drug abuse patient.[facility]In the event this information is protected by the Federal Confidentiality of Alcohol and Drug Abuse Patient Records regulations: The Federal rules restrict any use of the information to criminally investigate or prosecute any alcohol or drug abuse patient.[facility]In the event this information is protected by the Federal Confidentiality of Alcohol and Drug Abuse Patient Records regulations: The Federal rules restrict any use of the information to criminally investigate or prosecute any alcohol or drug abuse patient.[facility]In the event this information is protected by the Federal Confidentiality of Alcohol and Drug Abuse Patient Records regulations: The Federal rules restrict any use of the information to criminally investigate or prosecute any alcohol or drug abuse patient.[facility]In the event this information is protected by the Federal Confidentiality of Alcohol and Drug Abuse Patient Records regulations: The Federal rules restrict any use of the information to criminally investigate or prosecute any alcohol or drug abuse patient.[facility]In the event this information is protected by the Federal Confidentiality of Alcohol and Drug Abuse Patient Records regulations: The Federal rules restrict any use of the information to criminally investigate or prosecute any alcohol or drug abuse patient.[facility]In the event this information is protected by the Federal Confidentiality of Alcohol and Drug Abuse Patient Records regulations: The Federal rules restrict any use of the information to criminally investigate or prosecute any alcohol or drug abuse patient.[facility]In the event this information is protected by the Federal Confidentiality of Alcohol and Drug Abuse Patient Records regulations: The Federal rules restrict any use of the information to criminally investigate or prosecute any alcohol or drug abuse patient.[facility]In the event this information is protected by the Federal Confidentiality of Alcohol and Drug Abuse Patient Records regulations: The Federal rules restrict any use of the information to criminally investigate or prosecute any alcohol or drug abuse patient.[facility] HospitalIn the event this information is protected by the Federal Confidentiality of Alcohol and Drug Abuse Patient Records regulations: The Federal rules restrict any use of the information to criminally investigate or prosecute any alcohol or drug abuse patient.[facility] the event this information is protected by the Federal Confidentiality of Alcohol and Drug Abuse Patient Records regulations: The Federal rules restrict any use of the information to criminally investigate or prosecute any alcohol or drug abuse patient.[facility]In the event this information is protected by the Federal Confidentiality of Alcohol and Drug Abuse Patient Records regulations: The Federal rules restrict any use of the information to criminally investigate or prosecute any alcohol or drug abuse patient.[facility]In the event this information is protected by the Federal Confidentiality of Alcohol and Drug Abuse Patient Records regulations: The Federal rules restrict any use of the information to criminally investigate or prosecute any alcohol or drug abuse patient.[facility]In the event this information is protected by the Federal Confidentiality of Alcohol and Drug Abuse Patient Records regulations: The Federal rules restrict any use of the information to criminally investigate or prosecute any alcohol or drug abuse patient.[facility]In the event this information is protected by the Federal Confidentiality of Alcohol and Drug Abuse Patient Records regulations: The Federal rules restrict any use of the information to criminally investigate or prosecute any alcohol or drug abuse patient.[facility]In the event this information is protected by the Federal Confidentiality of Alcohol and Drug Abuse Patient Records regulations: The Federal rules restrict any use of the information to criminally investigate or prosecute any alcohol or drug abuse patient.[facility]In the event this information is protected by the Federal Confidentiality of Alcohol and Drug Abuse Patient Records regulations: The Federal rules restrict any use of the information to criminally investigate or prosecute any alcohol or drug abuse patient.[facility]In the event this information is protected by the Federal Confidentiality of Alcohol and Drug Abuse Patient Records regulations: The Federal rules restrict any use of the information to criminally investigate or prosecute any alcohol or drug abuse patient.[facility]In the event this information is protected by the Federal Confidentiality of Alcohol and Drug Abuse Patient Records regulations: The Federal rules restrict any use of the information to criminally investigate or prosecute any alcohol or drug abuse patient.[facility]In the event this information is protected by the Federal Confidentiality of Alcohol and Drug Abuse Patient Records regulations: The Federal rules restrict any use of the information to criminally investigate or prosecute any alcohol or drug abuse patient.[facility]In the event this information is protected by the Federal Confidentiality of Alcohol and Drug Abuse Patient Records regulations: The Federal rules restrict any use of the information to criminally investigate or prosecute any alcohol or drug abuse patient.[facility]In the event this information is protected by the Federal Confidentiality of Alcohol and Drug Abuse Patient Records regulations: The Federal rules restrict any use of the information to criminally investigate or prosecute any alcohol or drug abuse patient.[facility]In the event this information is protected by the Federal Confidentiality of Alcohol and Drug Abuse Patient Records regulations: The Federal rules restrict any use of the information to criminally investigate or prosecute any alcohol or drug abuse patient.[facility]In the event this information is protected by the Federal Confidentiality of Alcohol and Drug Abuse Patient Records regulations: The Federal rules restrict any use of the information to criminally investigate or prosecute any alcohol or drug abuse patient.[facility]In the event this information is protected by the Federal Confidentiality of Alcohol and Drug Abuse Patient Records regulations: The Federal rules restrict any use of the information to criminally investigate or prosecute any alcohol or drug abuse patient.[facility]In the event this information is protected by the Federal Confidentiality of Alcohol and Drug Abuse Patient Records regulations: The Federal rules restrict any use of the information to criminally investigate or prosecute any alcohol or drug abuse patient.[facility]In the event this information is protected by the Federal Confidentiality of Alcohol and Drug Abuse Patient Records regulations: The Federal rules restrict any use of the information to criminally investigate or prosecute any alcohol or drug abuse patient.[facility]In the event this information is protected by the Federal Confidentiality of Alcohol and Drug Abuse Patient Records regulations: The Federal rules restrict any use of the information to criminally investigate or prosecute any alcohol or drug abuse patient.[facility]In the event this information is protected by the Federal Confidentiality of Alcohol and Drug Abuse Patient Records regulations: The Federal rules restrict any use of the information to criminally investigate or prosecute any alcohol or drug abuse patient.[facility]In the event this information is protected by the Federal Confidentiality of Alcohol and Drug Abuse Patient Records regulations: The Federal rules restrict any use of the information to criminally investigate or prosecute any alcohol or drug abuse patient.[facility]In the event this information is protected by the Federal Confidentiality of Alcohol and Drug Abuse Patient Records regulations: The Federal rules restrict any use of the information to criminally investigate or prosecute any alcohol or drug abuse patient.[facility]In the event this information is protected by the Federal Confidentiality of Alcohol and Drug Abuse Patient Records regulations: The Federal rules restrict any use of the information to criminally investigate or prosecute any alcohol or drug abuse patient.[facility]In the event this information is protected by the Federal Confidentiality of Alcohol and Drug Abuse Patient Records regulations: The Federal rules restrict any use of the information to criminally investigate or prosecute any alcohol or drug abuse patient.[facility]In the event this information is protected by the Federal Confidentiality of Alcohol and Drug Abuse Patient Records regulations: The Federal rules restrict any use of the information to criminally investigate or prosecute any alcohol or drug abuse patient.[facility]In the event this information is protected by the Federal Confidentiality of Alcohol and Drug Abuse Patient Records regulations: The Federal rules restrict any use of the information to criminally investigate or prosecute any alcohol or drug abuse patient.[facility]In the event this information is protected by the Federal Confidentiality of Alcohol and Drug Abuse Patient Records regulations: The Federal rules restrict any use of the information to criminally investigate or prosecute any alcohol or drug abuse patient.[facility]In the event this information is protected by the Federal Confidentiality of Alcohol and Drug Abuse Patient Records regulations: The Federal rules restrict any use of the information to criminally investigate or prosecute any alcohol or drug abuse patient.[facility]In the event this information is protected by the Federal Confidentiality of Alcohol and Drug Abuse Patient Records regulations: The Federal rules restrict any use of the information to criminally investigate or prosecute any alcohol or drug abuse patient.[facility]In the event this information is protected by the Federal Confidentiality of Alcohol and Drug Abuse Patient Records regulations: The Federal rules restrict any use of the information to criminally investigate or prosecute any alcohol or drug abuse patient.[facility]In the event this information is protected by the Federal Confidentiality of Alcohol and Drug Abuse Patient Records regulations: The Federal rules restrict any use of the information to criminally investigate or prosecute any alcohol or drug abuse patient.[facility]In the event this information is protected by the Federal Confidentiality of Alcohol and Drug Abuse Patient Records regulations: The Federal rules restrict any use of the information to criminally investigate or prosecute any alcohol or drug abuse patient.[facility]In the event this information is protected by the Federal Confidentiality of Alcohol and Drug Abuse Patient Records regulations: The Federal rules restrict any use of the information to criminally investigate or prosecute any alcohol or drug abuse patient.[facility]In the event this information is protected by the Federal Confidentiality of Alcohol and Drug Abuse Patient Records regulations: The Federal rules restrict any use of the information to criminally investigate or prosecute any alcohol or drug abuse patient.[facility]In the event this information is protected by the Federal Confidentiality of Alcohol and Drug Abuse Patient Records regulations: The Federal rules restrict any use of the information to criminally investigate or prosecute any alcohol or drug abuse patient.[facility]In the event this information is protected by the Federal Confidentiality of Alcohol and Drug Abuse Patient Records regulations: The Federal rules restrict any use of the information to criminally investigate or prosecute any alcohol or drug abuse patient.[facility]In the event this information is protected by the Federal Confidentiality of Alcohol and Drug Abuse Patient Records regulations: The Federal rules restrict any use of the information to criminally investigate or prosecute any alcohol or drug abuse patient.[facility]In the event this information is protected by the Federal Confidentiality of Alcohol and Drug Abuse Patient Records regulations: The Federal rules restrict any use of the information to criminally investigate or prosecute any alcohol or drug abuse patient.[facility]In the event this information is protected by the Federal Confidentiality of Alcohol and Drug Abuse Patient Records regulations: The Federal rules restrict any use of the information to criminally investigate or prosecute any alcohol or drug abuse patient.[facility]In the event this information is protected by the Federal Confidentiality of Alcohol and Drug Abuse Patient Records regulations: The Federal rules restrict any use of the information to criminally investigate or prosecute any alcohol or drug abuse patient.[facility]In the event this information is protected by the Federal Confidentiality of Alcohol and Drug Abuse Patient Records regulations: The Federal rules restrict any use of the information to criminally investigate or prosecute any alcohol or drug abuse patient.[facility]In the event this information is protected by the Federal Confidentiality of Alcohol and Drug Abuse Patient Records regulations: The Federal rules restrict any use of the information to criminally investigate or prosecute any alcohol or drug abuse patient.[facility]In the event this information is protected by the Federal Confidentiality of Alcohol and Drug Abuse Patient Records regulations: The Federal rules restrict any use of the information to criminally investigate or prosecute any alcohol or drug abuse patient.[facility]In the event this information is protected by the Federal Confidentiality of Alcohol and Drug Abuse Patient Records regulations: The Federal rules restrict any use of the information to criminally investigate or prosecute any alcohol or drug abuse patient.[facility]In the event this information is protected by the Federal Confidentiality of Alcohol and Drug Abuse Patient Records regulations: The Federal rules restrict any use of the information to criminally investigate or prosecute any alcohol or drug abuse patient.[facility]In the event this information is protected by the Federal Confidentiality of Alcohol and Drug Abuse Patient Records regulations: The Federal rules restrict any use of the information to criminally investigate or prosecute any alcohol or drug abuse patient.[facility]In the event this information is protected by the Federal Confidentiality of Alcohol and Drug Abuse Patient Records regulations: The Federal rules restrict any use of the information to criminally investigate or prosecute any alcohol or drug abuse patient.[facility]In the event this information is protected by the Federal Confidentiality of Alcohol and Drug Abuse Patient Records regulations: The Federal rules restrict any use of the information to criminally investigate or prosecute any alcohol or drug abuse patient.[facility]In the event this information is protected by the Federal Confidentiality of Alcohol and Drug Abuse Patient Records regulations: The Federal rules restrict any use of the information to criminally investigate or prosecute any alcohol or drug abuse patient.[facility]In the event this information is protected by the Federal Confidentiality of Alcohol and Drug Abuse Patient Records regulations: The Federal rules restrict any use of the information to criminally investigate or prosecute any alcohol or drug abuse patient.[facility] HospitalIn the event this information is protected by the Federal Confidentiality of Alcohol and Drug Abuse Patient Records regulations: The Federal rules restrict any use of the information to criminally investigate or prosecute any alcohol or drug abuse patient.[facility] the event this information is protected by the Federal Confidentiality of Alcohol and Drug Abuse Patient Records regulations: The Federal rules restrict any use of the information to criminally investigate or prosecute any alcohol or drug abuse patient.[facility]In the event this information is protected by the Federal Confidentiality of Alcohol and Drug Abuse Patient Records regulations: The Federal rules restrict any use of the information to criminally investigate or prosecute any alcohol or drug abuse patient.[facility]In the event this information is protected by the Federal Confidentiality of Alcohol and Drug Abuse Patient Records regulations: The Federal rules restrict any use of the information to criminally investigate or prosecute any alcohol or drug abuse patient.[facility]In the event this information is protected by the Federal Confidentiality of Alcohol and Drug Abuse Patient Records regulations: The Federal rules restrict any use of the information to criminally investigate or prosecute any alcohol or drug abuse patient.[facility]In the event this information is protected by the Federal Confidentiality of Alcohol and Drug Abuse Patient Records regulations: The Federal rules restrict any use of the information to criminally investigate or prosecute any alcohol or drug abuse patient.[facility]In the event this information is protected by the Federal Confidentiality of Alcohol and Drug Abuse Patient Records regulations: The Federal rules restrict any use of the information to criminally investigate or prosecute any alcohol or drug abuse patient.[facility]In the event this information is protected by the Federal Confidentiality of Alcohol and Drug Abuse Patient Records regulations: The Federal rules restrict any use of the information to criminally investigate or prosecute any alcohol or drug abuse patient.[facility]In the event this information is protected by the Federal Confidentiality of Alcohol and Drug Abuse Patient Records regulations: The Federal rules restrict any use of the information to criminally investigate or prosecute any alcohol or drug abuse patient.[facility]In the event this information is protected by the Federal Confidentiality of Alcohol and Drug Abuse Patient Records regulations: The Federal rules restrict any use of the information to criminally investigate or prosecute any alcohol or drug abuse patient.[facility]In the event this information is protected by the Federal Confidentiality of Alcohol and Drug Abuse Patient Records regulations: The Federal rules restrict any use of the information to criminally investigate or prosecute any alcohol or drug abuse patient.[facility]In the event this information is protected by the Federal Confidentiality of Alcohol and Drug Abuse Patient Records regulations: The Federal rules restrict any use of the information to criminally investigate or prosecute any alcohol or drug abuse patient.[facility]In the event this information is protected by the Federal Confidentiality of Alcohol and Drug Abuse Patient Records regulations: The Federal rules restrict any use of the information to criminally investigate or prosecute any alcohol or drug abuse patient.[facility]In the event this information is protected by the Federal Confidentiality of Alcohol and Drug Abuse Patient Records regulations: The Federal rules restrict any use of the information to criminally investigate or prosecute any alcohol or drug abuse patient.[facility]In the event this information is protected by the Federal Confidentiality of Alcohol and Drug Abuse Patient Records regulations: The Federal rules restrict any use of the information to criminally investigate or prosecute any alcohol or drug abuse patient.[facility]In the event this information is protected by the Federal Confidentiality of Alcohol and Drug Abuse Patient Records regulations: The Federal rules restrict any use of the information to criminally investigate or prosecute any alcohol or drug abuse patient.[facility] HospitalIn the event this information is protected by the Federal Confidentiality of Alcohol and Drug Abuse Patient Records regulations: The Federal rules restrict any use of the information to criminally investigate or prosecute any alcohol or drug abuse patient.[facility] HospitalIn the event this information is protected by the Federal Confidentiality of Alcohol and Drug Abuse Patient Records regulations: The Federal rules restrict any use of the information to criminally investigate or prosecute any alcohol or drug abuse patient.[facility] HospitalIn the event this information is protected by the Federal Confidentiality of Alcohol and Drug Abuse Patient Records regulations: The Federal rules restrict any use of the information to criminally investigate or prosecute any alcohol or drug abuse patient.[facility] HospitalIn the event this information is protected by the Federal Confidentiality of Alcohol and Drug Abuse Patient Records regulations: The Federal rules restrict any use of the information to criminally investigate or prosecute any alcohol or drug abuse patient.[facility] HospitalIn the event this information is protected by the Federal Confidentiality of Alcohol and Drug Abuse Patient Records regulations: The Federal rules restrict any use of the information to criminally investigate or prosecute any alcohol or drug abuse patient.[facility] HospitalIn the event this information is protected by the Federal Confidentiality of Alcohol and Drug Abuse Patient Records regulations: The Federal rules restrict any use of the information to criminally investigate or prosecute any alcohol or drug abuse patient.[facility] HospitalIn the event this information is protected by the Federal Confidentiality of Alcohol and Drug Abuse Patient Records regulations: The Federal rules restrict any use of the information to criminally investigate or prosecute any alcohol or drug abuse patient.[facility] HospitalIn the event this information is protected by the Federal Confidentiality of Alcohol and Drug Abuse Patient Records regulations: The Federal rules restrict any use of the information to criminally investigate or prosecute any alcohol or drug abuse patient.[facility] HospitalIn the event this information is protected by the Federal Confidentiality of Alcohol and Drug Abuse Patient Records regulations: The Federal rules restrict any use of the information to criminally investigate or prosecute any alcohol or drug abuse patient.[facility] HospitalIn the event this information is protected by the Federal Confidentiality of Alcohol and Drug Abuse Patient Records regulations: The Federal rules restrict any use of the information to criminally investigate or prosecute any alcohol or drug abuse patient.[facility] HospitalIn the event this information is protected by the Federal Confidentiality of Alcohol and Drug Abuse Patient Records regulations: The Federal rules restrict any use of the information to criminally investigate or prosecute any alcohol or drug abuse patient.[facility] HospitalIn the event this information is protected by the Federal Confidentiality of Alcohol and Drug Abuse Patient Records regulations: The Federal rules restrict any use of the information to criminally investigate or prosecute any alcohol or drug abuse patient.[facility] HospitalIn the event this information is protected by the Federal Confidentiality of Alcohol and Drug Abuse Patient Records regulations: The Federal rules restrict any use of the information to criminally investigate or prosecute any alcohol or drug abuse patient.[facility] HospitalIn the event this information is protected by the Federal Confidentiality of Alcohol and Drug Abuse Patient Records regulations: The Federal rules restrict any use of the information to criminally investigate or prosecute any alcohol or drug abuse patient.[facility] HospitalIn the event this information is protected by the Federal Confidentiality of Alcohol and Drug Abuse Patient Records regulations: The Federal rules restrict any use of the information to criminally investigate or prosecute any alcohol or drug abuse patient.[facility] HospitalIn the event this information is protected by the Federal Confidentiality of Alcohol and Drug Abuse Patient Records regulations: The Federal rules restrict any use of the information to criminally investigate or prosecute any alcohol or drug abuse patient.[facility] HospitalIn the event this information is protected by the Federal Confidentiality of Alcohol and Drug Abuse Patient Records regulations: The Federal rules restrict any use of the information to criminally investigate or prosecute any alcohol or drug abuse patient.[facility] HospitalIn the event this information is protected by the Federal Confidentiality of Alcohol and Drug Abuse Patient Records regulations: The Federal rules restrict any use of the information to criminally investigate or prosecute any alcohol or drug abuse patient.[facility] HospitalIn the event this information is protected by the Federal Confidentiality of Alcohol and Drug Abuse Patient Records regulations: The Federal rules restrict any use of the information to criminally investigate or prosecute any alcohol or drug abuse patient.[facility] HospitalIn the event this information is protected by the Federal Confidentiality of Alcohol and Drug Abuse Patient Records regulations: The Federal rules restrict any use of the information to criminally investigate or prosecute any alcohol or drug abuse patient.[facility] HospitalIn the event this information is protected by the Federal Confidentiality of Alcohol and Drug Abuse Patient Records regulations: The Federal rules restrict any use of the information to criminally investigate or prosecute any alcohol or drug abuse patient.[facility] HospitalIn the event this information is protected by the Federal Confidentiality of Alcohol and Drug Abuse Patient Records regulations: The Federal rules restrict any use of the information to criminally investigate or prosecute any alcohol or drug abuse patient.[facility] HospitalIn the event this information is protected by the Federal Confidentiality of Alcohol and Drug Abuse Patient Records regulations: The Federal rules restrict any use of the information to criminally investigate or prosecute any alcohol or drug abuse patient.[facility] HospitalIn the event this information is protected by the Federal Confidentiality of Alcohol and Drug Abuse Patient Records regulations: The Federal rules restrict any use of the information to criminally investigate or prosecute any alcohol or drug abuse patient.[facility] HospitalIn the event this information is protected by the Federal Confidentiality of Alcohol and Drug Abuse Patient Records regulations: The Federal rules restrict any use of the information to criminally investigate or prosecute any alcohol or drug abuse patient.[facility] Reason for Visit (unrecogniz ed section and content) Reason Onset Date Comments Transition Of Care 09/14/2021 TCM Initial M [facility] Hospital Discharge 09/13/21 Reason Onset Date Comments Transition Of Care 09/14/2021 TCM Pharmacy- Hospital discharge 09/13/21 Reason Comments Recheck Hosp follow up Specialty Diagnoses / Procedures Referred By Contac t Referred To Contact Internal Medicine / INTERNAL MEDICINE Diagnoses hospital follow up Procedures 4C EST HOSP/ER Hans Izquierdo [address] [place] [address] Anjel Braga APRN.PANAMA HAT SMEARER [address] [place] [address] Referral ID Status Reason Start Date Expiration Date V isits Requested Visits Authorized [id number] Closed Financial Clearance Required - OON Payor Patient Cleared INN/SMCP Payor Auth Obtained 09/15/2021 06/18/2022 1 1 Reason Comments Patient Update Reason Comments Medication Problem Plan of Care Reason Comments Nifedipine issue Reason Onset Date Comments Transition Of Care 09/16/2021 [facility] Hospital Discharge 09/13/21 Reason Comments FYI-OT plan of care Reason Comments Anticoagulation Reason Comments Orders Reason Comments medication issue Reason Comments [facility] verbal order needed Reason Comments Medication Problem Reason Comments Consult gallbladder, abdomen pain Specialty Diagnoses / Procedures Referred By Contac t Referred To Contact General Surgery / GENERAL SURGERY Diagnoses Acute cholecystitis Abdominal pain Acute cholecystitis, persistent abdominal pain Procedures OFFICE/OUTPATIENT NEW MODERATE MDM 45-59 MINUTES NEW DDI PATIENT Adelaida Farias MD [address] [place] [address] Kaye Ortega MD [address] [place] [address] Referral ID Status Reason Start Date Expiration Date V isits Requested Visits Authorized [id number] Closed Financial Clearance Required - OON Payor Patient Cleared INN/SMCP Payor Auth Obtained 09/08/2021 06/18/2022 1 1 Reason Comments Patient Question visit from 09/15/21 Reason Comments Patient Question Reason Comments Appointment CONSULT FOR CHOLECYS TECTOMY Reason Comments Appointment Reason Onset Date Comments Transition Of Care 09/21/2021 [facility] Hospital Discharge 09/13/21 Reason Comments Work excuse letter Reason Onset Date Comments Transition Of Care 09/29/2021 [facility] Hospital Discharge 09/13/21 Reason Onset Date Comments Refill Request 10/04/2021 Reason Comments Hypertension Specialty Diagnoses / Procedures Referred By Contac t Referred To Contact Internal Medicine / INTERNAL MEDICINE Diagnoses 09/13 ER Discharge [facility] Broken ribs follow up Procedures 4C EST HOSP/ER FU Daija Morton MD [address] [place] [address] Anjel Braga APRN.CNP [address] [place] [address] Referral ID Status Reason Start Date Expiration Date Visits Re quested Visits Authorized [id number] Closed 10/07/2021 06/18/2022 1 1 Reason Comments Coumadin update / Gilliam Reason Comments Patient Update Orders Reason Comments [...] VOL VNTJ Emilie Jauregui PA-C [address] [employer] [address] [place] [address] Respiratory Bruno [address] [place] [address] Referral ID Status Reason Start Date Expiration Date V isits Requested Visits Authorized [id number] Closed Auto-Generate d Referral 11/05/2021 06/18/2022 1 1 Specialty Diagnoses / Procedures Referred By Contac t Referred To Contact [facility] Diagnoses COPD with chronic bronchitis (HCC) Procedures OXIMETRY WITH AMBULATION NONINVASIVE EAR/PULSE OXIMETRY MULTIPLE DETER Emilie Jauregui PA-C [address] [employer] [address] [place] [address] Res[address] Bruno [address] [place] [address] Referral ID Status Reason Start Date Expiration Date V isits Requested Visits Authorized [id number] Closed Auto-Generate d Referral 11/05/2021 06/18/2022 1 1 Specialty Diagnoses / Procedures Referred By Contac t Referred To Contact Pulmonary and Critical Care Medicine / PULMONARY MEDICINE Diagnoses pre op clearance for gen surgery Procedures [facility] PUL Daija Hinds MD [address] [place] [address] Emilie Jauregui PA-C [address] [employer] [address] [place] [id number] Referral ID Status Reason Start Date Expiration Date Visits Re quested Visits Authorized [id number] Closed 10/21/2021 06/18/2022 1 1 Reason Comments Results Reason Comments Cardiac Clearance surgery to have gall bladder removed Reason Comments UTI Specialty Diagnoses / Procedures Referred By Contac t Referred To Contact Internal Medicine / INTERNAL MEDICINE Diagnoses Essential hypertension UTI Procedures OFFICE/OUTPATIENT ESTABLISHED MOD [facility] 30-39 MIN 4C EST Self Anjel Braga APRN.PANAMA HAT SMEARER [address] [place] [address] Referral ID Status Reason Start Date Expiration Date Visits Re quested Visits Authorized [id number] Closed 11/17/2021 06/18/2022 1 1 Reason Onset Date Comments Refill Request 11/18/2021 Reason Onset Date Comments Refill Request 11/19/2021 Reason Comments Medication Request Reason Comments Clinical Update Reason Comments Patient Update Medication Request Reason Comments Appointment 01/14 ED F/U-need ED location to retrieve records Reason Comments ER F/U [facility] Specialty Diagnoses / Procedures [facility] Referred To Contact Internal Medicine / INTERNAL MEDICINE Diagnoses Follow-up examination hospital f/u Procedures OFFICE/OUTPATIENT ESTABLISHED MOD [facility] 30-39 MIN 4C EST HOSP/ER FU SelfMD Roosevelt Terri, TRAILER DRIVER.LASER SET UP OPERATOR [address] [place] [address] Referral ID Status Reason Start Date Expiration Date Visits Re quested Visits Authorized [id number] Closed 01/14/2022 06/18/2022 1 1 Reason Comments Established Patient follow up gallbladde r Reason Comments Recheck Follow up, Hosp foll ow up Specialty Diagnoses / Procedures Referred By Contac t Referred To Contact Internal Medicine / INTERNAL MEDICINE Diagnoses [facility] ER f/u. 01-25-22. Black stool. Procedures 4C EST HOSP/ER FU SelfMD Omi Joy, TRAILER DRIVER.PANAMA HAT SMEARER [address] [place] [address] Referral ID Status Reason Start Date Expiration Date Visits Re quested Visits Authorized [id number] Closed 01/28/2022 04/28/2022 1 1 Reason Comments Follow Up Specialty Diagnoses / Procedures Referred By Contac t Referred To Contact Vascular Surgery / VASCULAR SURGERY Diagnoses PVD 1 year f/u with PVR and arterial Duplex [place] [address] [place] [address] [place] [address] [place] [address] Referral ID Status Reason Start Date Expiration Date Visits Re quested Visits Authorized [id number] Closed 01/31/2022 06/18/2022 1 1 Reason Comments Results, Lab Reason Onset Date Comments Refill Request 02/22/2022 Reason Comments Erroneous encounter-disregard Reason Comments Fall Reason Comments SW[facility] orders needed today Reason Comments admit to SWCC Reason Comments Social Work Services Reason Comments Medication Question Reason Comments Syncope Reason Onset Date Comments Refill Request 08/25/2022 Patient Update 08/25/2022 Reason Comments alf follow-up Reason Onset Date Comments Refill Request [...] fix this, also fell twice while in [facility] Reason Comments Mental status change Reason Comments No Show Reason Onset Date Comments Refill Request 01/23/2024 Reason Onset Date Comments Refill Request 03/12/2024 Reason Comments UTI Foul odor, confusion Reason Comments Home Health Orders Reason Comments [facility] update Reason Comments Home Care Management Patient Update Reason Comments alf discharge [facility] Reason Onset Date Comments Refill Request 12/13/2024 [facility] Reason Onset Date Comments Refill Request 12/16/2024 Reason Onset Date Comments Refill Request 01/17/2025 Care Teams (unrecognized sec tion and content) Character Actor Relationship Specialty Start Date End Date Daija Morton MD [address] [facility] [place] [address] PCP - General Internal Medicine 03/21/17 Beatriz Correa CNP Referring 09/28/20 Daija Morton MD [address] [facility] [place] [address] Home Care Physician Internal Medicine 09/28/20 13, Pharmacist [phone] [place] [address] Pharmacist Pharmacy 06/17/21 Lizette Ulloa, ОЛЕГ [address] [place] [address] Primary Care Client Account Representative Internal Medicine 09/14/21 10/14/21 Tamika HARRELL Molder Labels 09/26/17 Character Actor Relationship Specialty Start Date End Date Daija Morton MD [address] [facility] [place] [address] PCP - General Internal Medicine 03/21/17 Beatriz Correa CNP Referring 09/28/20 Daija Morton MD [address] [facility] [place] [address] Home Care Physician Internal Medicine 09/28/20 13, Pharmacist [phone] [place] [address] Pharmacist Pharmacy 06/17/21 Lizette Ulloa, RN [address] [place] [address] Primary Care Client Account Representative Internal Medicine 09/14/21 10/14/21 Tamika HARRELL Molder Labels 09/26/17 Character Actor Relationship Specialty Start Date End Date Daija Morton MD [address] [facility] [place] [address] PCP - General Internal Medicine 03/21/17 Beatriz Correa CNP Referring 09/28/20 Daija Morton MD [address] [facility] [place] [address] Home Care Physician Internal Medicine 09/28/20 13, Pharmacist [address] [place] [address] Pharmacist Pharmacy 06/17/21 Lizette Ulloa, ОЛЕГ [address] [place] [address] Primary Care Client Account Representative Internal Medicine 09/14/21 10/14/21 Tamika HARRELL Molder Labels 09/26/17 Character Actor Relationship Specialty Start Date End Date Daija Morton MD [address] [place] [address] PCP - General Internal Medicine 03/21/17 Beatriz Correa CNP Referring 09/28/20 Daija Morton MD [address] [place] [address] Home Care Physician Internal Medicine 09/28/20 13, Pharmacist [phone] [place] [address] Pharmacist Pharmacy 06/17/21 Lizette Ulloa, ОЛЕГ [address] [place] [address] Primary Care Client Account Representative Internal Medicine 09/14/21 10/14/21 Tamika HARRELL Molder Labels 09/26/17 Character Actor Relationship Specialty Start Date End Date Daija Morton MD [address] [place] [address] PCP - General Internal Medicine 03/21/17 Beatriz Correa CNP Referring 09/28/20 Daija Morton MD [address] [place] [address] Home Care Physician Internal Medicine 09/28/20 13, Pharmacist [address] [place] [address] Pharmacist Pharmacy 06/17/21 Lizette Ulloa RN [address] [place] [address] Primary Care Client Account Representative Internal Medicine 09/14/21 10/14/21 Tamika HARRELL Molder Labels 09/26/17 Character Actor Relationship Specialty Start Date End Date Daija Morton MD [address] [place] [address] PCP - General Internal Medicine 03/21/17 Beatriz Correa, ACE Referring 09/28/20 Daija Morton MD [address] [place] [address] Home Care Physician Internal Medicine 09/28/20 13, Pharmacist [address] [place] [address] Pharmacist Pharmacy 06/17/21 Lizette Ulloa RN [address] [facility] [place] [address] Primary Care Client Account Representative Internal Medicine 09/14/21 10/14/21 Tamika HARRELL Molder Labels 09/26/17 Character Actor Relationship Specialty Start Date End Date Daija Morton MD [address] [place] [address] PCP - General Internal Medicine 03/21/17 Beatriz Correa, ACE Referring 09/28/20 Daija Morton MD [address] [place] [address] Home Care Physician Internal Medicine 09/28/20 13, Pharmacist [phone] [place] [address] Pharmacist Pharmacy 06/17/21 Lizette Ulloa RN [address] [facility] [place] [address] Primary Care Client Account Representative Internal Medicine 09/14/21 10/14/21 Tamika HARRELL Molder Labels 09/26/17 Character Actor Relationship Specialty Start Date End Date Daija Morton MD [address] [facility] [place] [address] PCP - General Internal Medicine 03/21/17 Beatriz Correa, PANAMA HAT SMEARER Referring 09/28/20 Daija Morton MD [address] [place] [address] Home Care Physician Internal Medicine 09/28/20 13, Pharmacist [address] [place] [address] Pharmacist Pharmacy 06/17/21 Lizette Ulloa RN [address] [facility] [place] [address] Primary Care Client Account Representative Internal Medicine 09/14/21 10/14/21 Kaye Ortega MD [address] [facility] [place] [address] General Surgery 09/21/21 Tamika Almaguer PASSPORT Molder Labels 09/26/17 Character Actor Relationship Specialty Start Date End Date Daija Morton MD [address] [place] [address] PCP - General Internal Medicine 03/21/17 Beatriz Correa, PANAMA HAT SMEARER Referring 09/28/20 Daija Morton MD [address] [place] [address] Home Care Physician Internal Medicine 09/28/20 13, Pharmacist [address] [place] [address] Pharmacist Pharmacy 06/17/21 Lizette Ulloa RN [address] [facility] [place] [address] Primary Care Client Account Representative Internal Medicine 09/14/21 10/14/21 Kaye Ortega MD [address] [place] [address] General Surgery 09/21/21 Tamika HARRELL Molder Labels 09/26/17 Character Actor Relationship Specialty Start Date End Date Daija Morton MD [address] [place] [place] [address] PCP - General Internal Medicine 03/21/17 Beatriz Correa, ACE Referring 09/28/20 Daija Morton MD [address] [place] [address] Home Care Physician Internal Medicine 09/28/20 13, Pharmacist [address] [place] [address] Pharmacist Pharmacy 06/17/21 Lizette Ulloa RN [address] [place] [address] Primary Care Client Account Representative Internal Medicine 09/14/21 10/14/21 Kaye Ortega MD [address] [place] [address] General Surgery 09/21/21 Tamika Almaguer PASSANYI Molder Labels 09/26/17 Character Actor Relationship Specialty Start Date End Date Daija Morton MD [address] [place] [address] PCP - General Internal Medicine 03/21/17 Beatriz Correa, PANAMA HAT SMEARER Referring 09/28/20 Daija Morton MD [address] [place] [address] Home Care Physician Internal Medicine 09/28/20 13, Pharmacist [address] [place] [address] Pharmacist Pharmacy 06/17/21 Lizette Ulloa RN [address] [place] [address] Primary Care Client Account Representative Internal Medicine 09/14/21 10/14/21 Kaye Ortega MD [address] [place] [address] General Surgery 09/21/21 Tamika Meyermary Almaguer PASSPORT Molder Labels 09/26/17 Character Actor Relationship Specialty Start Date End Date Daija Morton MD [address] [place] [address] PCP - General Internal Medicine 03/21/17 Beatriz Correa, ACE Referring 09/28/20 Daija Morton MD [address] [place] [address] Home Care Physician Internal Medicine 09/28/20 13, Pharmacist [address] [place] [address] Pharmacist Pharmacy 06/17/21 Lizette Ulloa, RN [address] [place] [address] Primary Care Client Account Representative Internal Medicine 09/14/21 10/14/21 Kaye Ortega MD [address] [place] [address] General Surgery 09/21/21 Tamika Almaguer PASSPORT Molder Labels 09/26/17 Character Actor Relationship Specialty Start Date End Date Daija Morton MD [address] [place] [address] PCP - General Internal Medicine 03/21/17 Beatriz Correa, PANAMA HAT SMEARER Referring 09/28/20 Daija Morton MD [address] [place] [address] Home Care Physician Internal Medicine 09/28/20 13, Pharmacist [address] [place] [address] Pharmacist Pharmacy 06/17/21 Lizette Ulloa, ОЛЕГ [address] [facility] [place] [address] Primary Care Client Account Representative Internal Medicine 09/14/21 10/14/21 Kaye Ortega MD [address] [place] [address] General Surgery 09/21/21 Tamika HARRELL Molder Labels 09/26/17 Character Actor Relationship Specialty Start Date End Date Daija Morton MD [address] [place] [address] PCP - General Internal Medicine 03/21/17 Beatriz Correa, PANAMA HAT SMEARER Referring 09/28/20 Daija Morton MD [address] [place] [address] Home Care Physician Internal Medicine 09/28/20 Fco Franklin, ОЛЕГ [address] [place] [address] Supervisor Metalizing 10/08/20 12/21/20 13, Pharmacist [address] [place] [address] Pharmacist Pharmacy 06/17/21 Lizette Ulloa, ОЛЕГ [address] [place], [place] [id number] Primary Care Client Account Representative Internal Medicine 09/14/21 10/14/21 Kaye Ortega MD [address] [facility] [place] [address] General Surgery 09/21/21 Tamika HARRELL Molder Labels 09/26/17 Character Actor Relationship Specialty Start Date End Date Daija Morton MD [address] [place] [address] PCP - General Internal Medicine 03/21/17 Beatriz Correa, ACE Referring 09/28/20 Daija Morton MD [address] [place] [address] Home Care Physician Internal Medicine 09/28/20 13, Pharmacist [phone] [place] [address] Pharmacist Pharmacy 06/17/21 Lizette Ulloa, ОЛЕГ [address] [place], [place] [phone] Primary Care Client Account Representative Internal Medicine 09/14/21 10/14/21 Kaye Ortega MD [address] [facility] [place] [id number] General Surgery 09/21/21 Tamika Canales Tripp [facility] Molder Labels 09/26/17 Character Actor Relationship Specialty Start Date End Date Daija Morton MD [address] [place] [address] PCP - General Internal Medicine 03/21/17 Beatriz Correa, PANAMA HAT SMEARER Referring 09/28/20 10/12/21 Daija Morton MD [address] [place] [address] Home Care Physician Internal Medicine 09/28/20 10/12/21 13, Pharmacist [address] [place] [address] Pharmacist Pharmacy 06/17/21 Lizette Ulloa, ОЛЕГ [address] [place] [address] Primary Care Client Account Representative Internal Medicine 09/14/21 10/14/21 Kaye Ortega MD [address] [facility] [place] [phone] General Surgery 09/21/21 Ye Coello MD [address] [place], [place] [id number] General Surgery 10/13/21 Emilie Jauregui PA-C [address], [place] 835241 Specialty Network Architect Manager Pulmonary and Critical Care Medicine 10/13/21 Ryan May MD [address] [place] [address] Specialty Network Architect Manager Vascular Surgery 10/13/21 Geronimo Medina, DO [address] [address] Exhibit Cleaner Cardiology 10/13/21 Tamika Canales [facility] Molder Labels 09/26/17 Character Actor Relationship Specialty Start Date End Date Daija Morton MD [address] [place] [address] PCP - General Internal Medicine 03/21/17 13, Pharmacist [address] [place] [address] Pharmacist Pharmacy 06/17/21 Lizette Ulloa, RN [address] [place] [address] Primary Care Client Account Representative Internal Medicine 09/14/21 10/14/21 Kaye Ortega MD [address] [place] [phone] General Surgery 09/21/21 Ye Coello MD [address] [place], [place] 745535 General Surgery 10/13/21 Emilie Jauregui PA-C [address] [place] [address] Specialty Network Architect Manager Pulmonary and Critical Care Medicine 10/13/21 Ryan May MD [address] [place], [place] [phone] Specialty Network Architect Manager Vascular Surgery 10/13/21 Geronimo Medina, [address] [address] Exhibit Cleaner Cardiology 10/13/21 Tamika HARRELL Molder Labels 09/26/17 Character Actor Relationship Specialty Start Date End Date Daija Morton MD [address] [place], [place] [id number] PCP - General Internal Medicine 03/21/17 Beatriz Correa, PANAMA HAT SMEARER Referring 09/28/20 10/12/21 Daija Morton MD [address] [place], [place] [id number] Home Care Physician Internal Medicine 09/28/20 10/12/21 13, Pharmacist [address] [place] [address] Pharmacist Pharmacy 06/17/21 Lizette Ulloa, ОЛЕГ [address] [place], [place] [phone] Primary Care Client Account Representative Internal Medicine 09/14/21 10/14/21 Kaye Ortega MD [address] [place] [phone] General Surgery 09/21/21 Ye Coello MD [address] [place], [place] [id number] General Surgery 10/13/21 Emilie Jauregui PA-C [address], [place] [phone] Specialty Network Architect Manager Pulmonary and Critical Care Medicine 10/13/21 Ryan May MD [address] [place] [address] Specialty Network Architect Manager Vascular Surgery 10/13/21 Geronimo Medina DO [address] [address] Exhibit Cleaner Cardiology 10/13/21 Tamika HARRELL Molder Labels 09/26/17 Character Actor Relationship Specialty Start Date End Date Daija Morton MD [address] [place] [address] PCP - General Internal Medicine 03/21/17 13, Pharmacist [address] [place] [address] Pharmacist Pharmacy 06/17/21 Lizette Ulloa, ОЛЕГ [address] [place], [place] [phone] Primary Care Client Account Representative Internal Medicine 09/14/21 10/14/21 Kaye Ortega MD [address] [place] [phone] General Surgery 09/21/21 Ye Coello MD [address] [place], [place] 533145 General Surgery 10/13/21 Emilie Jauregui PA-C [address] [place] [address] Specialty Network Architect Manager Pulmonary and Critical Care Medicine 10/13/21 Ryan May MD [address] [place] [address] Specialty Network Architect Manager Vascular Surgery 10/13/21 Geronimo Medina DO [address] [address] Exhibit Cleaner Cardiology 10/13/21 Tamika HARRELL Molder Labels 09/26/17 Character Actor Relationship Specialty Start Date End Date Daija Morton MD [address] [place] [address] PCP - General Internal Medicine 03/21/17 13, Pharmacist [address] [place] [address] Pharmacist Pharmacy 06/17/21 Kaye Ortega MD [address] [place] [phone] General Surgery 09/21/21 Ye Coello MD [address] [place], [place] [id number] General Surgery 10/13/21 Emilie Jauregui PA-C [address] [place] [address] Specialty Network Architect Manager Pulmonary and Critical Care Medicine 10/13/21 Ryan May MD [address] [place], [place] [phone] Specialty Network Architect Manager Vascular Surgery 10/13/21 Geronimo Medina, [address] [phone] Exhibit Cleaner Cardiology 10/13/21 [facility]uer [facility] Molder Labels 09/26/17 Character Actor Relationship Specialty Start Date End Date Daija Morton MD [address] [place], [place] [phone] PCP - General Internal Medicine 03/21/17 13, Pharmacist [address] [place] [address] Pharmacist Pharmacy 06/17/21 Kaye Ortega MD [address] [place] [phone] General Surgery 09/21/21 Ye Coello MD [address] [place], [place] [id number] General Surgery 10/13/21 Emilie Jauregui PA-C [address] [place] [address] Specialty Network Architect Manager Pulmonary and Critical Care Medicine 10/13/21 Ryan May MD [address] [place], [place] [phone] Specialty Network Architect Manager Vascular Surgery 10/13/21 Geronimo Medina DO [address] [address] Exhibit Cleaner Cardiology 10/13/21 Tamika [facility]maguer [facility] Molder Labels 09/26/17 Character Actor Relationship Specialty Start Date End Date Daija Morton MD [address] [place] [address] PCP - General Internal Medicine 03/21/17 13, Pharmacist [address]93 [place] [address] Pharmacist Pharmacy 06/17/21 Kaye Ortega MD [address] [place] [phone] General Surgery 09/21/21 Ye Coello MD [address] [place] [address] General Surgery 10/13/21 Emilie Jauregui PA-C [address] [place] [address] Specialty Network Architect Manager Pulmonary and Critical Care Medicine 10/13/21 Ryan May MD [address] [place] [address] Specialty Network Architect Manager Vascular Surgery 10/13/21 Geronimo Medina DO [address] [address] Exhibit Cleaner Cardiology 10/13/21 Tamika Almaguer [facility] Molder Labels 09/26/17 Character Actor Relationship Specialty Start Date End Date Daija Morton MD [address] [place] [address] PCP - General Internal Medicine 03/21/17, Pharmacist 92348 [place] [address] Pharmacist Pharmacy 06/17/21 Kaye Ortega MD [address] [place] [phone] General Surgery 09/21/21 Ye Coello MD [address] [place], [place] [phone] General Surgery 10/13/21 Emilie Jauregui PA-C [address] [place] [address] Specialty Network Architect Manager Pulmonary and Critical Care Medicine 10/13/21 Ryan May MD [address] [place], [place] 1933495 Specialty Network Architect Manager Vascular Surgery 10/13/21 Geronimo Medina, DO [address] [address] Exhibit Cleaner Cardiology 10/13/21 Tamika Almaguer [facility] Molder Labels 09/26/17 Character Actor Relationship Specialty Start Date End Date Daija Morton MD [address] [place] [address] PCP - General Internal Medicine 03/21/17 13, Pharmacist 20926 [place] [address] Pharmacist Pharmacy 06/17/21 Kaye Ortega MD [address] [place] [address] General Surgery 09/21/21 Ye Coello MD [address] [place], [place] [phone] General Surgery 10/13/21 Emilie Jauregui PA-C [address] [place], [place] 755491 Specialty Network Architect Manager Pulmonary and Critical Care Medicine 10/13/21 Ryan May MD [address] [place] [place], [place] 8406495 Specialty Network Architect Manager Vascular Surgery 10/13/21 Geronimo Medina DO [address] [address] Exhibit Cleaner Cardiology 10/13/21 Tamika Almaguer [facility] Molder Labels 09/26/17 Character Actor Relationship Specialty Start Date End Date Daija Morton MD [address] [place] [address] PCP - General Internal Medicine 03/21/17 13, Pharmacist [address]22 [place] [address] Pharmacist Pharmacy 06/17/21 Kaye Ortega MD [address] [place] [address] General Surgery 09/21/21 Ye Coello MD [address] [place], [place] [phone] General Surgery 10/13/21 Emilie Jauregui PA-C [address] [place] [address] Specialty Network Architect Manager Pulmonary and Critical Care Medicine 10/13/21 Ryan May MD [address] [place] [address] Specialty Network Architect Manager Vascular Surgery 10/13/21 Geronimo Medina DO [address] [address] Exhibit Cleaner Cardiology 10/13/21 Tamika Almaguer [facility] Molder Labels 09/26/17 Character Actor Relationship Specialty Start Date End Date Daija Morton MD [address] [place] [address] PCP - General Internal Medicine 03/21/17 13, Pharmacist [address]59 [place] [address] Pharmacist Pharmacy 06/17/21 Kaye Ortega MD [address] [place] [address] General Surgery 09/21/21 Ye Coello MD [address] [place] [address] General Surgery 10/13/21 Emilie Jauregui PA-C [address] [place] [address] Specialty Network Architect Manager Pulmonary and Critical Care Medicine 10/13/21 Ryan May MD [address] [place] [address] Specialty Network Architect Manager Vascular Surgery 10/13/21 Geronimo Medina DO [address] [address] Exhibit Cleaner Cardiology 10/13/21 Tamika HARRELL Molder Labels 09/26/17 Character Actor Relationship Specialty Start Date End Date Daija Morton MD [address] [place] [address] PCP - General Internal Medicine 03/21/17 13, Pharmacist [address]199 [place] [address] Pharmacist Pharmacy 06/17/21 Kaye Ortega MD [address] [place] [phone] General Surgery 09/21/21 Ye Coello MD [address] [place], [place] [phone] General Surgery 10/13/21 Emilie Jauregui PAAshtyn [address] [place], [place] 327731 Specialty Network Architect Manager Pulmonary and Critical Care Medicine 10/13/21 Ryan May MD [address] [place] [address] Specialty Network Architect Manager Vascular Surgery 10/13/21 Geronimo Medina DO [address] [phone] Exhibit Cleaner Cardiology 10/13/21 Tamika Almaguer [facility] Molder Labels 09/26/17 Character Actor Relationship Specialty Start Date End Date Daija Morton MD [address] [place], [place] [id number] [phone] PCP - General Internal Medicine 03/21/17 13, Pharmacist [address]894 [place] [address] Pharmacist Pharmacy 06/17/21 Kaye Ortega MD [address] [place] [address]1761691-2342 General Surgery 09/21/21 Ye Coello MD [address] [place], [place] [id number] General Surgery 10/13/21 Emilie Jauregui PA-C [address] [place] [address] Specialty Network Architect Manager Pulmonary and Critical Care Medicine 10/13/21 Ryan May MD [address] [place], [place] 2967095 Specialty Network Architect Manager Vascular Surgery 10/13/21 Geronimo Medina, DO [address] [address] Exhibit Cleaner Cardiology 10/13/[address] [facility] Molder Labels 09/26/17 Character Actor Relationship Specialty Start Date End Date Daija Morton MD [address] [place] [address] PCP - General Internal Medicine 03/21/17 13, Pharmacist [address]183 [place] [address] Pharmacist Pharmacy 06/17/21 Kaye Ortega MD [address] [place] [address] General Surgery 09/21/21 Ye Coello MD [address] [place] [address] General Surgery 10/13/21 Emilie Jauregui PA-C [address] [place] [address] Specialty Network Architect Manager Pulmonary and Critical Care Medicine 10/13/21 Ryan May MD [address] [place] [address] Specialty Network Architect Manager Vascular Surgery 10/13/21 Geronimo Medina DO [address] [address] Exhibit Cleaner Cardiology 10/13/21 Tamika Almaguer [facility] Molder Labels 09/26/17 Character Actor Relationship Specialty Start Date End Date Daija Morton MD [address] [place], [place] 458311 PCP - General Internal Medicine 03/21/17 13, Pharmacist [address]297 [place] [address] Pharmacist Pharmacy 06/17/21 Kaye Ortega MD [address] [place] [address]-3661577-0585 General Surgery 09/21/21 Ye Coello MD [address] [place], [place] [phone] General Surgery 10/13/21 Emilie Jauregui PA-C [address] [place], [place] 562821 Specialty Network Architect Manager Pulmonary and Critical Care Medicine 10/13/21 Ryan May MD [address] [place], [place] 2271795 Specialty Network Architect Manager Vascular Surgery 10/13/21 Geronimo Medina, [address] [address] Exhibit Cleaner Cardiology 10/13/21 Tamika Almaguer [facility] Molder Labels 09/26/17 Character Actor Relationship Specialty Start Date End Date Daija Morton MD [address] [place], [place] [phone] PCP - General Internal Medicine 03/21/17 13, Pharmacist 14828 [place] [address] Pharmacist Pharmacy 06/17/21 Kaye Ortega MD [address] [place] [address] General Surgery 09/21/21 Ye Coello MD [address] [place], [place] 109695 General Surgery 10/13/21 Emilie Jauregui PA-C [address] [place], [place] 795831 Specialty Network Architect Manager Pulmonary and Critical Care Medicine 10/13/21 Ryan May MD [address] [place], [place] 5233295 Specialty Network Architect Manager Vascular Surgery 10/13/21 Geronimo Medina DO [address] [address] Exhibit Cleaner Cardiology 10/13/21 Tamika Canales Tripp [facility] Molder Labels 09/26/17 Character Actor Relationship Specialty Start Date End Date Daija Morton MD [address] [place] [address] PCP - General Internal Medicine 03/21/17 13, Pharmacist [address]06 [place] [address] Pharmacist Pharmacy 06/17/21 Kaye Ortega MD [address] [place] [address]-7204637-9886 General Surgery 09/21/21 Ye Coello MD [address] [place], [place] [id number] General Surgery 10/13/21 Emilie Jauregui PA-C [address] [place] [address] Specialty Network Architect Manager Pulmonary and Critical Care Medicine 10/13/21 Ryan May MD [address] [place] [address] Specialty Network Architect Manager Vascular Surgery 10/13/21 Geronimo Medina DO [address] [address] Exhibit Cleaner Cardiology 10/13/21 Tamika HARRELL Molder Labels 09/26/17 Character Actor Relationship Specialty Start Date End Date Daija Morton MD [address] [place] [address] PCP - General Internal Medicine 03/21/17 13, Pharmacist [address]47 [place] [address] Pharmacist Pharmacy 06/17/21 Kaye Ortega MD [address] [place] [address] General Surgery 09/21/21 Ye Coello MD [address] [place] [address] General Surgery 10/13/21 Emilie Jauregui PA-C [address] [place] [address] Specialty Network Architect Manager Pulmonary and Critical Care Medicine 10/13/21 Ryan May MD [address] [place] [address] Specialty Network Architect Manager Vascular Surgery 10/13/21 Geronimo Medina DO [address] [address] Exhibit Cleaner Cardiology 10/13/21 Tamika HARRELL Molder Labels 09/26/17 Character Actor Relationship Specialty Start Date End Date Daija Morton MD [address] [place] [address] PCP - General Internal Medicine 03/21/17 13, Pharmacist [address]47 [place] [address] Pharmacist Pharmacy 06/17/21 Kaye Ortega MD [address] [place] [phone] General Surgery 09/21/21 Ye Coello MD [address] [place], [place] [id number] General Surgery 10/13/21 Emilie Jauregui PA-C [address] [place] [address] Specialty Network Architect Manager Pulmonary and Critical Care Medicine 10/13/21 Ryan May MD [address] [place] [address] Specialty Network Architect Manager Vascular Surgery 10/13/21 Geronimo Medina DO [address] [address] Exhibit Cleaner Cardiology 10/13/21 Tam[facility]maguer [facility] Molder Labels 09/26/17 Character Actor Relationship Specialty Start Date End Date Daija Morton MD [address] [place] [address] PCP - General Internal Medicine 03/21/17 13, Pharmacist 6[address]49 [place] [address] Pharmacist Pharmacy 06/17/21 Kaye Ortega MD [address] [place] [phone] General Surgery 09/21/21 Ye Coello MD [address] [place], [place] [id number] General Surgery 10/13/21 Emilie Jauregui, PA-C [address] [place] [address] Specialty Network Architect Manager Pulmonary and Critical Care Medicine 10/13/21 Ryan May MD [address] [place], [place] 8408795 Specialty Network Architect Manager Vascular Surgery 10/13/21 Geronimo Medina DO [address] [address] Exhibit Cleaner Cardiology 10/13/21 Tamika Almaguer [facility] Molder Labels 09/26/17 Character Actor Relationship Specialty Start Date End Date Daija Morton MD [address] [place] [address] PCP - General Internal Medicine 03/21/17 13, Pharmacist [address]199 [place] [address] Pharmacist Pharmacy 06/17/21 Kaye Ortega MD [address] [place] [address] General Surgery 09/21/21 Ye Coello MD [address] [place] [address] General Surgery 10/13/21 Emilie Jauregui PA-C [address] [place] [address] Specialty Network Architect Manager Pulmonary and Critical Care Medicine 10/13/21 Ryan May MD [address]45 [place] [address] Specialty Network Architect Manager Vascular Surgery 10/13/21 Geronimo Medina DO [address] [address] Exhibit Cleaner Cardiology 10/13/21 Tamika Almaguer [facility] Molder Labels 09/26/17 Character Actor Relationship Specialty Start Date End Date Daija Morton MD [address] [place] [address] PCP - General Internal Medicine 03/21/17 13, Pharmacist [address]71 [place] [address] Pharmacist Pharmacy 06/17/21 Kaye Ortega MD [address] [place] [address] General Surgery 09/21/21 Ye Coello MD [address] [place], [place] [id number] General Surgery 10/13/21 Emilie Jauregui PA-C [address] [place] [address] Specialty Network Architect Manager Pulmonary and Critical Care Medicine 10/13/21 Ryan May MD [address] [place] [address] Specialty Network Architect Manager Vascular Surgery 10/13/21 Geronimo Medina DO [address] [address] Exhibit Cleaner Cardiology 10/13/21 Tamika Almaguer [facility] Molder Labels 09/26/17 Character Actor Relationship Specialty Start Date End Date Daija Morton MD [address] [place] [address] PCP - General Internal Medicine 03/21/17 13, Pharmacist 12967 [place] [address] Pharmacist Pharmacy 06/17/21 Kaye Ortega MD [address] [place] [address] General Surgery 09/21/21 Ye Coello MD [address] [place] 037235 General Surgery 10/13/21 Emilie Jauregui PA-C [address] [place] [address] Specialty Network Architect Manager Pulmonary and Critical Care Medicine 10/13/21 Ryan May MD [address] [place], [place] [phone] Specialty Network Architect Manager Vascular Surgery 10/13/21 Geronimo Medina, [address] [address] Exhibit Cleaner Cardiology 10/13/21 Tamika Almaguer [facility] Molder Labels 09/26/17 Character Actor Relationship Specialty Start Date End Date Daija Morton MD [address] [place] [address] PCP - General Internal Medicine 03/21/17 13, Pharmacist [address]204 [place] [address] Pharmacist Pharmacy 06/17/21 Kaye Ortega MD [address] [place] [address]-2216802-2050 General Surgery 09/21/21 Ye Coello MD [address] [place], [place] 898555 General Surgery 10/13/21 Emilie Jauregui PA-C [address] [place] [address] Specialty Network Architect Manager Pulmonary and Critical Care Medicine 10/13/21 Ryan May MD [address] [place], [place] [phone] Specialty Network Architect Manager Vascular Surgery 10/13/21 Geronimo Medina DO [address] [address] Exhibit Cleaner Cardiology 10/13/21 Tamika Almaguer [facility] M[employer] Labels 09/26/17 Character Actor Relationship Specialty Start Date End Date Daija Morton MD [address] [place] [address] PCP - General Internal Medicine 03/21/17 13, Pharmacist [address]89 [place] [address] Pharmacist Pharmacy 06/17/21 Kaye Ortega MD [address] [place] [address]9323321[address] General Surgery 09/21/21 Ye Coello MD [address] [place], [place] [phone] General Surgery 10/13/21 Emilie Jauregui PA-C [address] [place], [place] 635611 Specialty Network Architect Manager Pulmonary and Critical Care Medicine 10/13/21 Ryan May MD [address] [place] [address] Specialty Network Architect Manager Vascular Surgery 10/13/21 Geronimo Medina DO [address] [address] Exhibit Cleaner Cardiology 10/13/21 Tamika HARRELL Molder Labels 09/26/17 Character Actor Relationship Specialty Start Date End Date Daija Morton MD [address] [place] [address] PCP - General Internal Medicine 03/21/17 13, Pharmacist [address]255 [place] [address] Pharmacist Pharmacy 06/17/21 Kaye Ortega MD [address] [place] [address] General Surgery 09/21/21 Ye Coello MD [address] [place], [place] [phone] General Surgery 10/13/21 Emilie Jauregui, PA-C [address] [place] [address] Specialty Network Architect Manager Pulmonary and Critical Care Medicine 10/13/21 Ryan May MD [address] [place] [address] Specialty Network Architect Manager Vascular Surgery 10/13/21 Geronimo Medina DO [address] [address] Exhibit Cleaner Cardiology 10/13/21 Tamika Almaguer [facility] Molder Labels 09/26/17 Character Actor Relationship Specialty Start Date End Date Daija Morton MD [address] [place] [address] PCP - General Internal Medicine 03/21/17 13, Pharmacist [address]157 [place] [address] Pharmacist Pharmacy 06/17/21 Kaye Ortega MD [address] [place] [address] General Surgery 09/21/21 Ye Coello MD [address] [facility] [place] [place] [id number] General Surgery 10/13/21 Emilie Jauregui PA-C [address] [place] [address] Specialty Network Architect Manager Pulmonary and Critical Care Medicine 10/13/21 Ryan May MD [address] [place], [place] 4126595 Specialty Network Architect Manager Vascular Surgery 10/13/21 Geronimo Medina, DO [address] [address] Exhibit Cleaner Cardiology 10/13/21 Tamika Almaguer [facility] M[employer] Labels 09/26/17 Character Actor Relationship Specialty Start Date End Date Daija Morton MD [address] [place] [address] PCP - General Internal Medicine 03/21/17 13, Pharmacist [address]489 [place] [address] Pharmacist Pharmacy 06/17/21 Kaye Ortega MD [address] [place] [address]217[address]2167 General Surgery 09/21/21 Ye Coello MD [address] [place] [address] General Surgery 10/13/21 Emilie Jauregui PA-C [address] [place] [address] Specialty Network Architect Manager Pulmonary and Critical Care Medicine 10/13/21 Ryan May MD 0920 [facility] [place] [address] Specialty Network Architect Manager Vascular Surgery 10/13/21 Geronimo Medina, DO [address] [address] Exhibit Cleaner Cardiology 10/13/21 Tamika HARRELL Molder Labels 09/26/17 Character Actor Relationship Specialty Start Date End Date Daija Morton MD [address] [place] [address] PCP - General Internal Medicine 03/21/17 13, Pharmacist 20786 [place] [address] Pharmacist Pharmacy 06/17/21 Kaye Ortega MD [address] [place] [address] General Surgery 09/21/21 Ye Coello MD [address] [place], [place] [id number] General Surgery 10/13/21 Emilie Jauregui PA-C [address] [place] [address] Specialty Network Architect Manager Pulmonary and Critical Care Medicine 10/13/21 Ryan May MD [address] [place] [address] Specialty Network Architect Manager Vascular Surgery 10/13/21 Geronimo Medina, [address] [address] Exhibit Cleaner Cardiology 10/13/21 [facility] Molder Labels 09/26/17 Character Actor Relationship Specialty Start Date End Date Daija Morton MD [address] [place] [address] PCP - General Internal Medicine 03/21/17 13, Pharmacist [address]388 [place] [address] Pharmacist Pharmacy 06/17/21 Kaye Ortega MD [address] [place] [address] General Surgery 09/21/21 Ye Coello MD [address] [place] [address] General Surgery 10/13/21 Emilie Jauregui PA-C [address] [place] [address] Specialty Network Architect Manager Pulmonary and Critical Care Medicine 10/13/21 Ryan May MD [address] [place], [place] 4017495 Specialty Network Architect Manager Vascular Surgery 10/13/21 Geronimo Medina, [address] [phone] Exhibit Cleaner Cardiology 10/13/21 Tamika Almaguer [facility] Molder Labels 09/26/17 Character Actor Relationship Specialty Start Date End Date Daija Morton MD [address] [place], [place] 40902018 [phone] PCP - General Internal Medicine 03/21/17 13, Pharmacist [address]14 [place] [address] Pharmacist Pharmacy 06/17/21 Kaye Ortega MD [address] [place] [address] General Surgery 09/21/21 Ye Coello MD 1587 [place] [address] General Surgery 10/13/21 Emilie Jauregui PA-C [address] [place] [address] Specialty Network Architect Manager Pulmonary and Critical Care Medicine 10/13/21 Ryan May MD [address] [place], [place] [phone] Specialty Network Architect Manager Vascular Surgery 10/13/21 Geronimo Medina DO [address] [address] Exhibit Cleaner Cardiology 10/13/21 Tamika Almaguer [facility] M[employer] Labels 09/26/17 Character Actor Relationship Specialty Start Date End Date Daija Morton MD [address] [place] [address] PCP - General Internal Medicine 03/21/17 13, Pharmacist [address]604 [place] [address] Pharmacist Pharmacy 06/17/21 04/12/22 Kaye Ortega MD [address] [place] [phone] General Surgery 09/21/21 Ye Coello MD [address] [place], [place] [phone] General Surgery 10/13/21 Emilie Jauregui PA-C [address] [place], [place] 899601 Specialty Network Architect Manager Pulmonary and Critical Care Medicine 10/13/21 Ryan May MD 4360 [place], [place] [phone] Specialty Network Architect Manager Vascular Surgery 10/13/21 Geronimo Medina DO [address] [address] Exhibit Cleaner Cardiology 10/13/21 Tamika HARRELL M[employer] Labels 09/26/17 Team Status: Active Member Role Status [...] Provider Active Андрей Cooley Attending Provider Active Character Actor Relationship Specialty Start Date End Date Daija Morton MD [address] [facility] [place] [address] PCP - General Internal Medicine 03/21/17 Kaye Ortega MD [address] [place] [address] General Surgery 09/21/21 Ye Coello MD [address] [place], [place] [id number] General Surgery 10/13/21 Emilie Jauregui PA-C [address] [place] [address] Specialty Network Architect Manager Pulmonary and Critical Care Medicine 10/13/21 Ryan May MD [address]00 [place] [address] Specialty Network Architect Manager Vascular Surgery 10/13/21 Geronimo Medina, DO [address] [address] Exhibit Cleaner Cardiology 10/13/21 Tam[facility]uer [facility] M[facility] Lab[facility] 09/26/17 Character Actor Relationship Specialty Start Date End Date Daija Morton MD [address] [facility] [place] [address] PCP - General Internal Medicine 03/21/17 Kaye Ortega MD [address] [place] [address] General Surgery 09/21/21 Ye Coello MD [address] [place], [place] [id number] General Surgery 10/13/21 Emilie Jauregui PANeshaC [address] [place] [address] Specialty Network Architect Manager Pulmonary and Critical Care Medicine 10/13/21 Ryan May MD [address] [place] [address] Specialty Network Architect Manager Vascular Surgery 10/13/21 Geronimo Medina, DO [address] [address] Exhibit Cleaner Cardiology 10/13/21 Tamika HARRELL Molder Labels 09/26/17 Character Actor Relationship Specialty Start Date End Date Daija Morton MD [address] [place] [address] PCP - General Internal Medicine 03/21/17 Kaye Ortega MD [address] [place] [address] General Surgery 09/21/21 Ye Coello MD [address] [place] [address] General Surgery 10/13/21 Emilie Jauregui PA-C [address] [place] [address] Specialty Network Architect Manager Pulmonary and Critical Care Medicine 10/13/21 Ryan May MD [address] [place] [address] Specialty Network Architect Manager Vascular Surgery 10/13/21 Geronimo Medina, [address] [address] Exhibit Cleaner Cardiology 10/13/21 Tamika HARRELL Molder Labels 09/26/17 Character Actor Relationship Specialty Start Date End Date Daija Morton MD [address] [place] [address] PCP - General Internal Medicine 03/21/17 Kaye Ortega MD [address] [facility] [place] [address] General Surgery 09/21/21 Ye Coello MD [address] [place], [place] [address]142 [phone] General Surgery 10/13/21 Emilie Jauregui PA-C [address] [facility] [place] [address] Specialty Network Architect Manager Pulmonary and Critical Care Medicine 10/13/21 Ryan May MD [address] [place] [address] Specialty Network Architect Manager Vascular Surgery 10/13/21 Geronimo Medina, DO [address] [address] Exhibit Cleaner Cardiology 10/13/21 Tamika Almaguer [facility] Molder Labels 09/26/17 Character Actor Relationship Specialty Start Date End Date Daija Morton MD [address] [facility] [place] [address] PCP - General Internal Medicine 03/21/17 Kaye Ortega MD [address] [place] [address] General Surgery 09/21/21 Ye Coello MD [address] [place], [place] 924085 General Surgery 10/13/21 Emilie Jauregui PA-C [address] [facility] [place] [address] Specialty Network Architect Manager Pulmonary and Critical Care Medicine 10/13/21 Ryan May MD [address] [place] [address] Specialty Network Architect Manager Vascular Surgery 10/13/21 Geronimo Medina, DO [address] [address] Exhibit Cleaner Cardiology 10/13/21 Tmaika HARRELL Molder Labels 09/26/17 Character Actor Relationship Specialty Start Date End Date Daija Morton MD [address] [place] [address] PCP - General Internal Medicine 03/21/17 Kaye Ortega MD [address] [place] [address] General Surgery 09/21/21 Ye Coello MD [address] [place] [address] General Surgery 10/13/21 Emilie Jauregui PA-C [address] [place] [address] Specialty Network Architect Manager Pulmonary and Critical Care Medicine 10/13/21 Ryan May MD [address] [facility] [place] [address] Specialty Network Architect Manager Vascular Surgery 10/13/21 Geronimo Medina, DO [address] [address] Exhibit Cleaner Cardiology 10/13/21 Tamika HARRELL Molder Labels 09/26/17 Character Actor Relationship Specialty Start Date End Date Daija Morton MD [address] [place] [address] PCP - General Internal Medicine 03/21/17 Kaye Ortega MD [address] [place] [address] General Surgery 09/21/21 Ye Coello MD [address] [place] [address] General Surgery 10/13/21 Emilie Jauregui, PANeshaC [address] [place] [address] Specialty Network Architect Manager Pulmonary and Critical Care Medicine 10/13/21 Ryan May MD [address] [place], [place] 88687[address] Specialty Network Architect Manager Vascular Surgery 10/13/21 Geronimo Medina, DO [address] [id number] Exhibit Cleaner Cardiology 10/13/[address] [facility] Molder Labels 09/26/17 Character Actor Relationship Specialty Start Date End Date Daija Morton MD [address] [place] [address] PCP - General Internal Medicine 03/21/17 Kaye Ortega MD [address] [place] [address] General Surgery 09/21/21 Ye Coello MD [address] [place], [place] 604588 [phone] General Surgery 10/13/21 Emilie Jauregui PA-C [address] [place] [address] Specialty Network Architect Manager Pulmonary and Critical Care Medicine 10/13/21 Ryan May MD [address] [place], [place] 4163395 Specialty Network Architect Manager Vascular Surgery 10/13/21 Geronimo Medina DO [address] [address] Exhibit Cleaner Cardiology 10/13/21 Tamika Almaguer [employer] M[employer] Labels 09/26/17 Team Status: Inactive Member Role Status Dates Dr. Daija Morton MD Primary Care Provider Active Андрей RAIN Attending Provider Active Team Status: Inactive Member Role Status Dates Dr. Daija Morton MD Primary Care Provider Active Dr. Jaden Jauregui MD Emergency Provider Active Character Actor Relationship Specialty Start Date End Date Daija Morton MD [address] [place], [place] 974911 PCP - General Internal Medicine 03/21/17 Kaye Ortega MD [address] [place] [address] General Surgery 09/21/21 Ye Coello MD [address] [place], [place] 037075 General Surgery 10/13/21 Emilie Jauregui, PANeshaC [address] [place], [place] 627051 Specialty Network Architect Manager Pulmonary and Critical Care Medicine 10/13/21 Ryan May MD [address] [place] [address] Specialty Network Architect Manager Vascular Surgery 10/13/21 Geronimo Medina DO [address] [address] Exhibit Cleaner Cardiology 10/13/21 Tamika Almaguer [employer] Molder Labels 09/26/17 Character Actor Relationship Specialty Start Date End Date Daija Morton MD [address] [place], [place] 039851 PCP - General Internal Medicine 03/21/17 Kaye Ortega MD [address] [place] [address] General Surgery 09/21/21 Ye Coello MD [address] [place], [place] 157575 General Surgery 10/13/21 Emilie Jauregui PA-C [address] [place], [place] 677741 Specialty Network Architect Manager Pulmonary and Critical Care Medicine 10/13/21 Ryan May MD [address] [place] [address] Specialty Network Architect Manager Vascular Surgery 10/13/21 Geronimo Medina DO [address] [address] Exhibit Cleaner Cardiology 10/13/21 Tamika Almaguer [employer] M[employer] Labels 09/26/17 Team Status: Inactive Member Role Status Dates Dr. Daija Morton MD Primary Care Provider Active Dr. Jaden Jauregui MD Attending Provider, Emergency Provider Active Team Status: Inactive Member Role Status Dates Dr. Daija Morton MD Primary Care Provider Active Dr. Huber Alvarado MD Emergency Provider Active Character Actor Relationship Specialty Start Date End Date Daija Morton MD [address] [place] [address] PCP - General Internal Medicine 03/21/17 Kaye Ortega MD [address] [place] [address] General Surgery 09/21/21 Ye Coello MD [address] [place], [place] 046265 General Surgery 10/13/21 Emilie Jauregui PA-C [address] [place], [place] 315731 Specialty Network Architect Manager Pulmonary and Critical Care Medicine 10/13/21 Ryan May MD [address] [place] [address] Specialty Network Architect Manager Vascular Surgery 10/13/21 Greonimo Medina DO [address] [address] Exhibit Cleaner Cardiology 10/13/21 Tamika Almaguer [facility] Molder Labels 09/26/17 Team Status: Inactive Member Role Status Dates Dr. Daija Morton MD Primary Care Provider Active Dr. Huber Alvarado MD Attending Provider, Emergency Provider Active Character Actor Relationship Specialty Start Date End Date Daija Morton MD [address] [place] [address] PCP - General Internal Medicine 03/21/17 Kaye Ortega MD [address] [facility] [place] [address] General Surgery 09/21/21 Ye Coello MD [address] [place], [place] 606[address] General Surgery 10/13/21 Emilie Jauregui PA-C [address] [place] [address] Specialty Network Architect Manager Pulmonary and Critical Care Medicine 10/13/21 Ryan May MD [address] [place] [address] Specialty Network Architect Manager Vascular Surgery 10/13/21 Geronimo Medina DO [address] [address] Exhibit Cleaner Cardiology 10/13/21 Tam[facility]maguer [facility] Molder Labels 09/26/17 Team Status: Active Member Role Status [...] MD Admit Provider, Attending Pro vider Active Character Actor Relationship Specialty Start Date End Date Daija Morton MD [address] [place], [place] 743341 PCP - General Internal Medicine 03/21/17 Kaye Ortega MD [address] [facility] [place] [address] General Surgery 09/21/21 Ye Coello MD [address] [place] [address] General Surgery 10/13/21 Emilie Jauregui PA-C [address] [place] [address] Specialty Network Architect Manager Pulmonary and Critical Care Medicine 10/13/21 Ryan May MD [address] [place] [address] Specialty Network Architect Manager Vascular Surgery 10/13/21 Geronimo Medina DO [address] [address] Exhibit Cleaner Cardiology 10/13/21 Tamika Almaguer [employer] M[employer] Labels 09/26/17 Team Status: Active Member Role Status [...] Dr. Elton Moore MD Other Provider Active Character Actor Relationship Specialty Start Date End Date Daija Morton MD [address] [place] [address] PCP - General Internal Medicine 03/21/17 Kaye Ortega MD [address] [place] [address] General Surgery 09/21/21 Ye Coello MD [address] [place] [address] General Surgery 10/13/21 Emilie Jauregui, PA-C [address] [place], [place] 921241 Specialty Network Architect Manager Pulmonary and Critical Care Medicine 10/13/21 Ryan May MD [address] [place] [address] Specialty Network Architect Manager Vascular Surgery 10/13/21 Geronimo Medina DO [address] [address] Exhibit Cleaner Cardiology 10/13/21 Tamika HARRELL Molder Labels 09/26/17 Character Actor Relationship Specialty Start Date End Date Daija Morton MD [address] [place] [address] PCP - General Internal Medicine 03/21/17 Kaye Ortega MD [address] [place] [address] General Surgery 09/21/21 Ye Coello MD [address] [place], [place] [address]87[address] General Surgery 10/13/21 Emilie Jauregui PA-C [address] [place] [address] Specialty Network Architect Manager Pulmonary and Critical Care Medicine 10/13/21 Ryan May MD [address] [place] [address] Specialty Network Architect Manager Vascular Surgery 10/13/21 Geronimo Medina DO [address] [place] [address] Exhibit Cleaner Cardiology 10/13/21 Tamika Almaguer [facility] Molder Labels 09/26/17 Character Actor Relationship Specialty Start Date End Date Daija Morton MD [address] [place] [address] PCP - General Internal Medicine 03/21/17 Kaye Ortega MD [address] [place] [address] General Surgery 09/21/21 Ye Coello MD [address] [place] [address] General Surgery 10/13/21 Emilie Jauregui PA-C [address] [place] [address] Specialty Network Architect Manager Pulmonary and Critical Care Medicine 10/13/21 Ryan May MD [address] [facility] [place] [address] Specialty Network Architect Manager Vascular Surgery 10/13/21 Geronimo Medina DO [address] [place] [address] Exhibit Cleaner Cardiology 10/13/21 Tamikadestiny Almaguer [facility] Molder Labels 09/26/17 Team Status: Inactive Member Role Status [...] Provi ashley, Attending Provider, Referring Provider Active Character Actor Relationship Specialty Start Date End Date Daija Morton MD [address] [place], [place] 515231 PCP - General Internal Medicine 03/21/17 Kaye Ortega MD [address] [place] [address] General Surgery 09/21/21 Ye Coello MD [address] [place] [address] General Surgery 10/13/21 Emilie Jauregui PA-C [address] [place] [address] Specialty Network Architect Manager Pulmonary and Critical Care Medicine 10/13/21 Ryan May MD [address] [place] [address] Specialty Network Architect Manager Vascular Surgery 10/13/21 Geronimo Medina DO [address] [place] [address] Exhibit Cleaner Cardiology 10/13/21 Tamika Almaguer [facility] Molder Labels 09/26/17 Team Status: Active Member Role Status [...] Provider, Other Provider A ctive Dr. Roman Patle , DO Attending Provider Active Team Status: [...] Other Provider Active Dr. Ryan Guerin , DO Attending Provider, Other Pro vider Active Team Status: Inactive Member Role Status Dates Dr. Daija Morton MD Primary Care Provider Active Dr. Huber Alvarado MD Emergency Provider Active Dr. Brody Maynard MD Admit Provider, Other Provider Active Dr. Ryan Guerin DO Attending Provider Active Character Actor Relationship Specialty Start Date End Date Daija Morton MD [address] [place], [place] 961831 PCP - General Internal Medicine 03/21/17 Kaye Ortega MD [address] [place] [address] General Surgery 09/21/21 Ye Coello MD [address] [place] [address] General Surgery 10/13/21 Emilie Jauregui PANeshaC [address] [place] [address] Specialty Network Architect Manager Pulmonary and Critical Care Medicine 10/13/21 Ryan May MD [address] [place] [address] Specialty Network Architect Manager Vascular Surgery 10/13/21 Geronimo Medina DO [address] [place] [address] Exhibit Cleaner Cardiology 10/13/21 Tamika Almaguer [facility] Molder Labels 09/26/17 Character Actor Relationship Specialty Start Date End Date Daija Morton MD [address] [place], [place] 705931 PCP - General Internal Medicine 03/21/17 Kaye Ortega MD [address] [place] [address] General Surgery 09/21/21 Ye Coello MD [address] [place], [place] 970445 General Surgery 10/13/21 Emilie Jauregui PA-C [address] [place] [address] Specialty Network Architect Manager Pulmonary and Critical Care Medicine 10/13/21 Ryan May MD [address] [place] [address] Specialty Network Architect Manager Vascular Surgery 10/13/21 Geronimo Medina DO [address] [place] [address] Exhibit Cleaner Cardiology 10/13/21 Tamika Almaguer [facility] Molder Labels 09/26/17 Character Actor Relationship Specialty Start Date End Date Daija Morton MD [address] [place], [place] 219821 PCP - General Internal Medicine 03/21/17 Kaye Ortega MD [address] [place] [address] General Surgery 09/21/21 Ye Coello MD [address] [place] [address] General Surgery 10/13/21 Emilie Jauregui PA-C [address] [facility] [place], [place] [address] Specialty Network Architect Manager Pulmonary and Critical Care Medicine 10/13/21 Ryan May MD [address] [place] [address] Specialty Network Architect Manager Vascular Surgery 10/13/21 Geronimo Medina DO [address] [place] [address] Exhibit Cleaner Cardiology 10/13/21 Tamika HARRELL Molder Labels 09/26/17 Character Actor Relationship Specialty Start Date End Date Daija Morton MD [address] [place], [place] 728941 PCP - General Internal Medicine 03/21/17 Kaye Ortega MD [address] [place] [address] General Surgery 09/21/21 Ye Coello MD [address] [place], [place] 360855 General Surgery 10/13/21 Emilie Jauregui PA-C [address] [place], [place] 580571 Specialty Network Architect Manager Pulmonary and Critical Care Medicine 10/13/21 Ryan May MD [address] [place] [address] Specialty Network Architect Manager Vascular Surgery 10/13/21 Geronimo Medina DO [address] [place] [address] Exhibit Cleaner Cardiology 10/13/21 Tamika HARRELL Molder Labels 09/26/17 Character Actor Relationship Specialty Start Date End Date Daija Morton MD [address] [place] [address] PCP - General Internal Medicine 03/21/17 Kaye Ortega MD [address] [place] [address] General Surgery 09/21/21 Ye Coello MD [address] [place], [place] 332675 General Surgery 10/13/21 Emilie Jauregui PA-C [address] [place] [address] Specialty Network Architect Manager Pulmonary and Critical Care Medicine 10/13/21 Ryan May MD [address] [place] [address] Specialty Network Architect Manager Vascular Surgery 10/13/21 Geronimo Medina DO [address] [place] [address] Exhibit Cleaner Cardiology 10/13/21 Tamika Almaguer [facility] Molder Labels 09/26/17 Character Actor Relationship Specialty Start Date End Date Daija Morton MD [address] [place] [address] PCP - General Internal Medicine 03/21/17 Kaye Ortega MD [address] [place] [address] General Surgery 09/21/21 Ye Coello MD [address] [place] [address] General Surgery 10/13/21 Emilie Jauregui PA-C [address] [place] [address] Specialty Network Architect Manager Pulmonary and Critical Care Medicine 10/13/21 Ryan May MD [address] [facility] [place], [place] [address] Specialty Network Architect Manager Vascular Surgery 10/13/21 Geronimo Medina DO [address] [place] [address] Exhibit Cleaner Cardiology 10/13/21 Tamika Almaguer [facility] Molder Labels 09/26/17 Character Actor Relationship Specialty Start Date End Date Daija Morton MD [address] [place], [place] 595891 PCP - General Internal Medicine 03/21/17 Kaye Ortega MD [address] [place] [address] General Surgery 09/21/21 Ye Coello MD [address] [place] [address] General Surgery 10/13/21 Emilie Jauregui PA-C [address] [place], [place] 2658[address] [phone] Specialty Network Architect Manager Pulmonary and Critical Care Medicine 10/13/21 Ryan May MD [address] [place], [place] 8981995 Specialty Network Architect Manager Vascular Surgery 10/13/21 Geronimo Medina DO [address] [place] [address] Exhibit Cleaner Cardiology 10/13/21 Tamika HARRELL Molder Labels 09/26/17 Character Actor Relationship Specialty Start Date End Date Daija Morton MD [address] [place], [place] 420071 PCP - General Internal Medicine 03/21/17 Kaye Ortega MD [address] [place] [address] General Surgery 09/21/21 Ye Coello MD [address] [place] [address] General Surgery 10/13/21 Emilie Jauregui PA-C [address] [place], [place] 374481 Specialty Network Architect Manager Pulmonary and Critical Care Medicine 10/13/21 Ryan May MD [address] [place] [address] Specialty Network Architect Manager Vascular Surgery 10/13/21 Geronimo Medina DO [address] [place] [address] Exhibit Cleaner Cardiology 10/13/21 Tamika HARRELL Molder Labels 09/26/17 Character Actor Relationship Specialty Start Date End Date Daija Morton MD [address] [place], [place] 424341 PCP - General Internal Medicine 03/21/17 Kaye Ortega MD [address] [place] [address] General Surgery 09/21/21 Ye Coello MD [address] [place] [address] General Surgery 10/13/21 Emilie Jauregui PA-C [address] [place], [place] 194981 Specialty Network Architect Manager Pulmonary and Critical Care Medicine 10/13/21 Ryan May MD [address] [facility] [place] [address] Specialty Network Architect Manager Vascular Surgery 10/13/21 Geronimo Medina DO [address] [place] [address] Exhibit Cleaner Cardiology 10/13/21 Tamika Almaguer [facility] Molder Labels 09/26/17 Character Actor Relationship Specialty Start Date End Date Daija Morton MD [address] [place], [place] 061221 PCP - General Internal Medicine 03/21/17 Beatriz Correa CNP 0 [facility] [place] [address] Referring 09/28/20 10/12/21 Daija Morton MD [address] [place] [address] Home Care Provider Internal Medicine 09/28/20 10/12/21 Fco Franklin, RN [address] [place] [address] Supervisor Metalizing 10/08/20 12/21/20 Tamika HARRELL M[employer] 09/26/17 Character Actor Relationship Specialty Start Date End Date Daija Morton MD [address] [place] [address] PCP - General Internal Medicine 03/21/17 Kaye Ortega MD [address] [place] [address] General Surgery 09/21/21 Ye Coello MD [address] [place] [address] General Surgery 10/13/21 Emilie Jauregui PA-C [address] [place], [place] 281751 Specialty Network Architect Manager Pulmonary and Critical Care Medicine 10/13/21 Ryan May MD [address] [place] [address] Specialty Network Architect Manager Vascular Surgery 10/13/21 Geronimo Medina DO [address] [place] [address] Exhibit Cleaner Cardiology 10/13/21 Tamika HARRELL M[employer] Lab[employer] 09/26/17 Character Actor Relationship Specialty Start Date End Date Daija Morton MD [address] [place] [address] PCP - General Internal Medicine 03/21/17 Kaye Ortega MD [address] [place] [address] General Surgery 09/21/21 Ye Coello MD [address] [place], [place] 177115 General Surgery 10/13/21 Emilie Jauregui PA-C [address] [place], [place] [address]44[address] Specialty Network Architect Manager Pulmonary and Critical Care Medicine 10/13/21 Ryan May MD [address] [place] [address] Specialty Network Architect Manager Vascular Surgery 10/13/21 Geronimo Medina DO [address] [place] [address] Exhibit Cleaner Cardiology 10/13/21 Tamika Almaguer [facility] Molder Labels 09/26/17 Character Actor Relationship Specialty Start Date End Date Daija Morton MD [address] [place], [place] 035611 PCP - General Internal Medicine 03/21/17 Kaye Ortega MD [address] [place] [address] General Surgery 09/21/21 Ye Coello MD [address] [place] [address] General Surgery 10/13/21 Emilie Jauregui PA-C [address] [place], [place] 758821 Specialty Network Architect Manager Pulmonary and Critical Care Medicine 10/13/21 Ryan May MD [address] [place] [address] Specialty Network Architect Manager Vascular Surgery 10/13/21 Geronimo Medina DO [address] [place] [address] Exhibit Cleaner Cardiology 10/13/21 Tamika Canales Tripp [facility] Molder Labels 09/26/17 Character Actor Relationship Specialty Start Date End Date Daija Morton MD [address] [place], [place] 543601 PCP - General Internal Medicine 03/21/17 Kaye Ortega MD [address] [place] [address] General Surgery 09/21/21 Ye Coello MD [address] [place] [address] General Surgery 10/13/21 Emilie Jauregui, PA-C [address] [place] [address] Specialty Network Architect Manager Pulmonary and Critical Care Medicine 10/13/21 Ryan May MD [address] [place] [address] Specialty Network Architect Manager Vascular Surgery 10/13/21 Geronimo Medina DO [address] [place] [address] Exhibit Cleaner Cardiology 10/13/21 Tamika Almaguer [facility] Molder Labels 09/26/17 Team Status: Active Member Role Status [...] Provider Active Start: August 31, 2024 Dr. Celai Toribio MD Other Provider Active Star t: [...] November 05, 2024 End: November 05, 2024 Character Actor Relationship Specialty Start Date End Date Daija Morton MD [address] [place] [address] PCP - General Internal Medicine 03/21/17 Kaye Ortega MD [address] [place] [address] General Surgery 09/21/21 Ye Coello MD [address] [place] [address] General Surgery 10/13/21 Emilie Jauregui PA-C [address] [place] [address] Specialty Network Architect Manager Pulmonary and Critical Care Medicine 10/13/21 Ryan May MD [address] [place] [address] Specialty Network Architect Manager Vascular Surgery 10/13/21 Geronimo Medina DO [address] [place] [address] Exhibit Cleaner Cardiology 10/13/21 Anjel Braga APRN.PANAMA HAT SMEARER [address] [place] [address] Scale Balancer Internal Medicine 05/26/24 Tamika Almaguer [facility] Molder Labels 09/26/17 Character Actor Relationship Specialty Start Date End Date Daija Morton MD [address] [place] [address] PCP - General Internal Medicine 03/21/17 Kaye Ortega MD [address] [place] [address] General Surgery 09/21/21 Ye Coello MD [address] [place] [address] General Surgery 10/13/21 Emilie Jauregui PA-C [address] [place] [address] Specialty Network Architect Manager Pulmonary and Critical Care Medicine 10/13/21 Ryan May MD [address] [place] [address] Specialty Network Architect Manager Vascular Surgery 10/13/21 Geronimo Medina DO [address] [place] [address] Exhibit Cleaner Cardiology 10/13/21 Anjel Braga APRN.PANAMA HAT SMEARER [address] [place], [place] 853221 Scale Balancer Internal Medicine 05/26/24 Tamika Almaguer [employer] Molder Labels 09/26/17 Character Actor Relationship Specialty Start Date End Date Daija Morton MD [address] [place], [place] 194451 PCP - General Internal Medicine 03/21/17 Kaye Ortega MD [address] [place] [address] General Surgery 09/21/21 Ye Coello MD [address] [place] [address] General Surgery 10/13/21 Emilie Jauregui PANeshaC [address] [place], [place] [address] Specialty Network Architect Manager Pulmonary and Critical Care Medicine 10/13/21 Ryan May MD [address] [facility] [place] [address] Specialty Network Architect Manager Vascular Surgery 10/13/21 Geronimo Medina DO [address] [place] [address] Exhibit Cleaner Cardiology 10/13/21 Anjel Braga APRN.PANAMA HAT SMEARER [address] [place], [place] [address] Scale Balancer Internal Medicine 05/26/24 Tamika Almaguer [employer] Molder Labels 09/26/17 Character Actor Relationship Specialty Start Date End Date Daija Morton MD [address] [place], [place] [id number] PCP - General Internal Medicine 03/21/17 Kaye Ortega MD [address] [facility] [place] [id number] General Surgery 09/21/21 Ye Coello MD [address] [place] [address] General Surgery 10/13/21 Emilie Jauregui PA-C [address] [place], [place] [address] Specialty Network Architect Manager Pulmonary and Critical Care Medicine 10/13/21 Ryan May MD [address] [place] [address] Specialty Network Architect Manager Vascular Surgery 10/13/21 Geronimo Medina DO [address] [place] [address] Exhibit Cleaner Cardiology 10/13/21 Anjel Braga APRN.PANAMA HAT SMEARER [address] [place] [address] Scale Balancer Internal Medicine 05/26/24 Tamika Almaguer [facility] Molder Labels 09/26/17 Character Actor Relationship Specialty Start Date End Date Daija Morton MD [address] [place] [address] PCP - General Internal Medicine 03/21/17 Kaye Ortega MD [address] [place] [id number] General Surgery 09/21/21 Ye Coello MD [address] [place], [place] [address] General Surgery 10/13/21 Emilie Jauregui PA-C [address] [place], [place] [address] Specialty Network Architect Manager Pulmonary and Critical Care Medicine 10/13/21 Ryan May MD [address] [facility] [place] [address] Specialty Network Architect Manager Vascular Surgery 10/13/21 Geronimo Medina DO [address] [place] [address] Exhibit Cleaner Cardiology 10/13/21 Anjel Braga APRN.PANAMA HAT SMEARER [address] [place] [address] Scale Balancer Internal Medicine 05/26/24 Tamika Almaguer [facility] Molder Labels 09/26/17 Character Actor Relationship Specialty Start Date End Date Daija Morton MD [address] [place] [address] PCP - General Internal Medicine 03/21/17 Kaye Ortega MD [address] [place] [id number] General Surgery 09/21/21 Ye Coello MD [address] [place] [address] General Surgery 10/13/21 Emilie Jauregui PA-C [address] [place] [address] Specialty Network Architect Manager Pulmonary and Critical Care Medicine 10/13/21 Ryan May MD [address] [place] [address] Specialty Network Architect Manager Vascular Surgery 10/13/21 Geronimo Medina DO [address] [place] [address] Exhibit Cleaner Cardiology 10/13/21 Anjel Braga APRN.PANAMA HAT SMEARER [address] [place], [place] [id number] Scale Balancer Internal Medicine 05/26/24 Tamika Almaguer [facility] Molder Labels 09/26/17 Team Status: Active Member Role/Relationship Status [...] tart: December 14, 2024 Dr. Lisha Talamantes , Other Provider Active Start : December 14, [...] tart: December 15, 2024 Dr. Lisha Talamantes , Other Provider Active Start : December 15, [...] Provider Active Start : December 16, 2024 Character Actor Relationship Specialty Start Date End Date Daija Morton MD [address] [place], [place] [id number] PCP - General Internal Medicine 03/21/17 Kaye Ortega MD [address] [place] [phone] General Surgery 09/21/21 Ye Coello MD [address] [place], [place] [address] General Surgery 10/13/21 Emilie Jauregui PA-C [address] [place], [place] [address] Specialty Network Architect Manager Pulmonary and Critical Care Medicine 10/13/21 Ryan May MD [address] [place] [address] Specialty Network Architect Manager Vascular Surgery 10/13/21 Geronimo Medina DO [address] [place] [address] Exhibit Cleaner Cardiology 10/13/21 Anjel Braga APRN.PANAMA HAT SMEARER [address] [place] [address] Scale Balancer Internal Medicine 05/26/24 Tamika Almaguer [facility] Molder Labels 09/26/17 Character Actor Relationship Specialty Start Date End Date Daija Morton MD [address] [place] [address] PCP - General Internal Medicine 03/21/17 Kaye Ortega MD [address] [place] [address] General Surgery 09/21/21 Ye Coello MD [address] [place] [address] General Surgery 10/13/21 Emilie Jauregui PANeshaC [address] [place] [address] Specialty Network Architect Manager Pulmonary and Critical Care Medicine 10/13/21 Ryan May MD [address] [place] [address] Specialty Network Architect Manager Vascular Surgery 10/13/21 Geronimo Medina DO [address] [place] [address] Exhibit Cleaner Cardiology 10/13/21 Anjel Braga APRN.PANAMA HAT SMEARER [address] [place], [place] [address] Scale Balancer Internal Medicine 05/26/24 Tamikadestiny Almaguer [facility] Molder Labels 09/26/17 Team Status: Active Member Role/Relationship Status Dates Dr. Daija Morton MD Primary Care Provider Active Start: December 17, 2024 Dr. Seth Pritchard DO Emergency Provider Active Start: December 17, 2024 Dr. Roman Patel DO Admit Provider Active Start: December 17, 2024 Dr. Roman Patel DO Attending Provider Active Start: December 17, 2024 Character Actor Relationship Specialty Start Date End Date Daija Morton MD [address] [place] [address] PCP - General Internal Medicine 03/21/17 Kaye Ortega MD [address] [place] [address] General Surgery 09/21/21 Ye Coello MD [address] [place] [address] General Surgery 10/13/21 Emilie Jauregui PA-C [address] [place] [address] Specialty Network Architect Manager Pulmonary and Critical Care Medicine 10/13/21 Ryan May MD [address] [place] [address] Specialty Network Architect Manager Vascular Surgery 10/13/21 Geronimo Medina DO [address] [place] [address] Exhibit Cleaner Cardiology 10/13/21 Anjel Braga APRN.PANAMA HAT SMEARER [address] [place], [place] [address] Scale Balancer Internal Medicine 05/26/24 Tamika Almaguer [facility] Molder Labels 09/26/17 Team Status: Inactive Member Role/Relationship Status [...] Status: Active Member Role/Relationship Status Dates Dr. Dajia Morton MD Primary Care Provider Active Start: [...] tart: December 14, 2024 Dr. Lisha Talamantes , DO Other Provider Active Start : December 14, 2024 Team Status: Active Member Role/Relationship Status Dates Dr. Daija Morton MD Primary Care Provider Active Start: December 15, 2024 Dr. Charis Walker , Emergency Provider Active S tart: December 15, 2024 Dr. Shilpa Contreras MD Admit Provider Active St art: December 15, 2024 Dr. Shilpa Contreras MD Other Provider Active St art: December 15, 2024 Dr. Lisha Talamantes , Attending Provider Active S tart: December 15, 2024 Dr. Lisha Talamantes , Other Provider Active Start : December 15, [...] December 16, 2024 Dr. Lisha Talamantes , Other Provider Active Start : December 16, [...] Active St art: December 18, 2024 Dr. Dalyin Schmitt MD Other Provider Active Start : [...] Provider Active Start: December 23, 2024 Dr. Romna Patel DO Admit Provider Active Start: December [...] December 24, 2024 Dr. Roman Patel , Admit Provider Active Start: December 24, 2024 [...] Start : December 25, 2024 Dr. Daylin Schmtit MD Other Provider Active Start : December [...] Provider Active Start : December 26, 2024 Character Actor Relationship Specialty Start Date End Date Daija Morton MD [address] [place] [address] PCP - General Internal Medicine 03/21/17 Kaye Ortega MD [address] [place] [phone] General Surgery 09/21/21 Ye Coello MD [address] [place] [address] General Surgery 10/13/21 Emilie Jauregui PANeshaC [address] [place] [address] Specialty Network Architect Manager Pulmonary and Critical Care Medicine 10/13/21 Ryan May MD [address] [place] [address] Specialty Network Architect Manager Vascular Surgery 10/13/21 Geronimo Medina DO [address] [place] [address] Exhibit Cleaner Cardiology 10/13/21 Anjel Braga APRN.PANAMA HAT SMEARER [address] [place], [place] [address] Scale Balancer Internal Medicine 05/26/24 Tamika [facility] Molder Labels 09/26/17 Team Status: Active Member Role/Relationship Status [...] Status: Active Member Role/Relationship Status Dates Dr. Dajia Morton MD Primary Care Provider Active Start: December 15, 2024 Dr. Charis Walker DO Emergency Provider Active S tart: December 15, 2024 Dr. Shilpa Contreras MD Admit Provider Active St art: December 15, 2024 Dr. Shilpa Contreras MD Other Provider Active St art: December 15, 2024 Dr. Lisha Albin , DO Attending Provider Active S tart: December 15, 2024 Dr. Lisha Talamantes , DO Other Provider Active Start : December 15, 2024 Team Status: Active Member Role/Relationship Status Dates Dr. Daija Morton MD Primary Care Provider Active Start: December 16, 2024 Dr. Charis Walker , DO Emergency Provider Active S tart: [...] : December 18, 2024 Dr. Mackenzie Guzmán , Other Provider Active St art: December 18, [...] MD Other Provider Active Start: J [id number] Jo [...] Ricardo Mccullough MD Other Provider Active Start: Ju 2024 Dr. Aung Peres MD Other Provider [...] January 03, 2025 End: January 03, 2025 Team Status: Active Member Role/Relationship Status Dates Dr. Lorraine Mena MD Primary Care Provider Active Team Status: Active Member Role/Relationship Status Dates Dr. Fco Monroy MD Emergency Provider Active Sta rt: January 05, 2025 Dr. Lorraine Mnea MD Primary Care Provider Active Start: January 05, 2025 Dr. Frankie Galindo MD Admit Provider Active Star t: January 05, 2025 Dr. Frankie Galindo MD Attending Provider Active Start: January 05, 2025 Dr. Frankie Galindo MD Other Provider Active Star t: January 05, 2025 Team Status: Inactive Member Role/Relationship Status Dates Dr. Fco Monroy MD Emergency Provider Active Sta rt: January 05, 2025 End: January 08, 2025 Dr. Lorraine Mena MD Primary Care Provider Active Start: January 05, 2025 End: January 08, 2025 Dr. Frankie Galindo MD Admit Provider Active Star t: January 05, 2025 End: January 08, 2025 Dr. Frankie Galindo MD Other Provider Active Star t: January 05, 2025 End: January 08, 2025 Dr. Ryan Guerin DO Attending Provider Active Start: January 05, 2025 End: January 08, 2025 Team Status: Active Member Role/Relationship Status Dates Dr. Fco Monroy MD Emergency Provider Active Sta rt: January 05, 2025 Dr. Lorraine Mena MD Primary Care Provider Active Start: January 05, 2025 Dr. Frankie Galindo MD Admit Provider Active Star t: January 05, 2025 Dr. Frankie Galindo MD Other Provider Active Star t: January 05, 2025 Dr. Paulino Henderson DO Attending Provider Active Start: January 05, 2025 Team Status: Active Member Role/Relationship Status Dates Dr. Lorraine Mena MD Primary Care Provider Active Start: January 06, 2025 Dr. Paulino Henderson DO Attending Provider Active Start: January 06, 2025 Team Status: Active Member Role/Relationship Status Dates Dr. Fco Monroy MD Emergency Provider Active Sta rt: January 07, 2025 Dr. Lorraine Mena MD Primary Care Provider Active Start: January 07, 2025 Dr. Frankie Galindo MD Admit Provider Active Star t: January 07, 2025 Dr. Frankie Galindo MD Other Provider Active Star t: January 07, 2025 Dr. Ryan Guerin , Other Provider Active S tart: January 07, 2025 Dr. Paulino Henderson DO Attending Provider Active Start: January 07, 2025 Team Status: Active Member Role/Relationship Status Dates Dr. Fco Monroy MD Emergency Provider Active Sta rt: January 07, 2025 Dr. Lorraine Mena MD Primary Care Provider Active Start: January 07, 2025 Dr. Frankie Galindo MD Admit Provider Active Star t: January 07, 2025 Dr. Frankie Galindo MD Other Provider Active Star t: January 07, 2025 Dr. Ryan Guerin DO Attending Provider Active Start: January 07, 2025 Dr. Ryan Guerin DO Other Provider Active S tart: January 07, 2025 Team Status: Active Member Role/Relationship Status Dates Dr. Fco Monroy MD Emergency Provider Active Sta rt: January 08, 2025 Dr. Lorraine Mena MD Primary Care Provider Active Start: January 08, 2025 Dr. Frankie Galindo MD Admit Provider Active Star t: January 08, 2025 Dr. Frankie Galindo MD Other Provider Active Star t: January 08, 2025 Dr. Ryan Guerin DO Attending Provider Active Start: January 08, 2025 Dr. Ryan Guerin DO Other Provider Active S tart: January 08, 2025 Character Actor Relationship Specialty Start Date End Date Daija Morton MD [address] [place], [place] [id number] PCP - General Internal Medicine 03/21/17 Kaye Ortega MD [address] [place] [phone] General Surgery 09/21/21 Ye Coello MD [address] [place] [address] General Surgery 10/13/21 Emilie Jauregui PA-C [address] [place], [place] [address] Specialty Network Architect Manager Pulmonary and Critical Care Medicine 10/13/21 Ryan May MD [address] [place] [address] Specialty Network Architect Manager Vascular Surgery 10/13/21 Geronimo Medina DO [address] [place] [address] Exhibit Cleaner Cardiology 10/13/21 Anjel Braga APRN.CNP [address] [place] [address] Scale Balancer Internal Medicine 05/26/24 Tamika Almaguer [facility] Molder Labels 09/26/17 Team Status: Active Member Role/Relationship Status Dates Dr. Daija Morton MD Primary Care Provider Active Start: December 23, 2024 Dr. Raul Jensen MD Attending Provider Active S tart: December 23, 2024 Dr. Lisha Talamantes DO Referring Provider Active S tart: December 23, 2024 [...] December 23, 2024 Dr. Lisha Talamantes DO Referring Provider Active S tart: December 23, 2024 Dr. Lisha Talamantes DO [...] Provider Active Start: December 24, 2024 Dr. Anug Peres MD Other Provider Active Start: December [...] Provider Active Start: December 24, 2024 Dr. hSilpa Contreras MD Referring Provider Active Start: December 24, 2024 Dr. [...] Attending Provider Active Start: December 31, 2024 Lorraine RAIN MD Referring Provider Active Start: December 31, 2024 Team Status: Inactive Member Role/Relationship Status Dates Dr. Daija Morton MD Primary Care Provider Active Start: January 03, 2025 End: January 03, 2025 Dr. Arnulfo Zhao DO Attending Provider Active Start: January 03, 2025 End: January 03, 2025 Dr. Arnulfo Zhao DO Emergency Provider Active Start: January 03, 2025 End: January 03, 2025 Team Status: Active Member Role/Relationship Status Dates Dr. Lorraine Mena MD Primary Care Provider Active Start: January 05, 2025 End: January 05, 2025 Dr. Geronimo Downey MD Attending Provider Active Start: January 05, 2025 End: January 05, 2025 Dr. Frankie Retana DO Referring Provider Active Start: January 05, 2025 End: January 05, 2025 Team Status: Active Member Role/Relationship Status Dates Dr. Lorraine Mena MD Primary Care Provider Active Start: January 06, 2025 Dr. Paulino Henderson DO Attending Provider Active Start: January 06, 2025 Team Status: Active Member Role/Relationship Status Dates Dr. Fco Monroy MD Emergency Provider Active Sta rt: January 07, 2025 Dr. Lorraine Mena MD Primary Care Provider Active Start: January 07, 2025 Dr. Frankie Galindo MD Admit Provider Active Star t: January 07, 2025 Dr. Frankie Galindo MD Other Provider Active Star t: January 07, 2025 Dr. Ryan Guerin DO Other Provider Active S tart: January 07, 2025 Dr. Paulino Henderson DO Attending Provider Active Start: January 07, 2025 Team Status: Active Member Role/Relationship Status Dates Dr. Fco Monroy MD Emergency Provider Active Sta rt: January 07, 2025 Dr. Lorraine Mena MD Primary Care Provider Active Start: January 07, 2025 Dr. Frankie Galindo MD Admit Provider Active Star t: January 07, 2025 Dr. Frankie Galindo MD Other Provider Active Star t: January 07, 2025 Dr. Ryan Guerin DO Attending Provider Active Start: January 07, 2025 Dr. Ryan Guerin DO Other Provider Active S tart: January 07, 2025 Team Status: Active Member Role/Relationship Status Dates Dr. Fco Monroy MD Emergency Provider Active Sta rt: January 08, 2025 Dr. Lorraine Mena MD Primary Care Provider Active Start: January 08, 2025 Dr. Frankie Galindo MD Admit Provider Active Star t: January 08, 2025 Dr. Frankie Galindo MD Other Provider Active Star t: January 08, 2025 Dr. Ryan Guerin DO Attending Provider Active Start: January 08, 2025 Dr. Ryan Guerin DO Other Provider Active S tart: January 08, 2025 Team Status: Active Member Role/Relationship Status Dates Dr. Lorraine Mena MD Primary Care Provider Active Start: January 13, 2025 Lorraine RAIN MD Attending Provider Active Start: January 13, 2025 Lorraine RAIN MD Referring Provider Active Start: January 13, 2025 Team Status: Active Member Role/Relationship Status Dates Dr. Lorraine Mena MD Primary Care Provider Active Start: January 20, 2025 Lorraine RAIN MD Attending Provider Active Start: January 20, 2025 Team Status: Inactive Member Role/Relationship Status Dates YARIEL Lorenzo Attending Provider Active Star t: January 21, 2025 End: January 21, 2025 Dr. Lorraine Mena MD Primary Care Provider Active Start: January 21, 2025 End: January 21, 2025 Dr. Lorraine Mena MD Referring Provider Active Start: January 21, 2025 End: January 21, 2025 Team Status: Active Member Role/Relationship Status Dates Dr. Lorraine Mena MD Primary Care Provider Active Start: January 06, 2025 End: January 08, 2025 Dr. Ryan Guerin DO Attending Provider Active Start: January 06, 2025 End: January 08, 2025 Team Status: Active Member Role/Relationship Status Dates Dr. Lorraine Mena MD Primary Care Provider Active Start: January 06, 2025 Dr. Paulino Henderson DO Attending Provider Active Start: January 06, 2025 Team Status: Active Member Role/Relationship Status Dates Dr. Fco Monroy MD Emergency Provider Active Sta rt: January 07, 2025 Dr. Lorraine Mena MD Primary Care Provider Active Start: January 07, 2025 Dr. Frankie Galindo MD Admit Provider Active Star t: January 07, 2025 Dr. Frankie Galindo MD Other Provider Active Star t: January 07, 2025 Dr. Ryan Guerin DO Other Provider Active S tart: January 07, 2025 Dr. Paulino Henderson DO Attending Provider Active Start: January 07, 2025 Team Status: Active Member Role/Relationship Status Dates Dr. Fco Monroy MD Emergency Provider Active Sta rt: January 07, 2025 Dr. Lorraine Mena MD Primary Care Provider Active Start: January 07, 2025 Dr. Frankie Galindo MD Admit Provider Active Star t: January 07, 2025 Dr. Frankie Galindo MD Other Provider Active Star t: January 07, 2025 Dr. Ryan Guerin DO Attending Provider Active Start: January 07, 2025 Dr. Ryan Guerin DO Other Provider Active S tart: January 07, 2025 Team Status: Active Member Role/Relationship Status Dates Dr. Fco Monroy MD Emergency Provider Active Sta rt: January 08, 2025 Dr. Lorraine Mena MD Primary Care Provider Active Start: January 08, 2025 Dr. Frankie Galindo MD Admit Provider Active Star t: January 08, 2025 Dr. Frankie Galindo MD Other Provider Active Star t: January 08, 2025 Dr. Ryan Guerin DO Attending Provider Active Start: January 08, 2025 Dr. Ryan Guerin DO Other Provider Active S tart: January 08, 2025 Team Status: Active Member Role/Relationship Status Dates Dr. Lorraine Mena MD Primary Care Provider Active Start: January 13, 2025 Lorraine RAIN MD Attending Provider Active Start: January 13, 2025 Lorraine RAIN MD Referring Provider Active Start: January 13, 2025 Team Status: Active Member Role/Relationship Status Dates Dr. Lorraine Mena MD Primary Care Provider Active Start: January 20, 2025 Lorraine RAIN MD Attending Provider Active Start: January 20, 2025 Team Status: Inactive Member Role/Relationship Status Dates YARIEL Lorenzo Attending Provider Active Star t: January 21, 2025 End: January 21, 2025 Dr. Lorraine Mena MD Primary Care Provider Active Start: January 21, 2025 End: January 21, 2025 Dr. Lorraine Mena MD Referring Provider Active Start: January 21, 2025 End: January 21, 2025 Team Status: Inactive Member Role/Relationship Status Dates Dr. Daija Morton MD Referring Provider Active Start: January 23, 2025 End: January 23, 2025 Hannah Busch NP-C Attending Provider Active S tart: January 23, 2025 End: January 23, 2025 Dr. Lorraine eMna MD Primary Care Provider Active Start: January 23, 2025 End: January 23, 2025 Team Status: Active Member Role/Relationship Status Dates Dr. Fco Monroy MD Emergency Provider Active Sta rt: January 05, 2025 Dr. Lorraine Mena MD Primary Care Provider Active Start: January 05, 2025 Dr. Frankie Galindo MD Admit Provider Active Star t: January 05, 2025 Dr. Frankie Galindo MD Referring Provider Active Start: January 05, 2025 Dr. Frankie Galindo MD Other Provider Active Star t: January 05, 2025 Dr. Paulino Henderson DO Attending Provider Active Start: January 05, 2025 Team Status: Inactive Member Role/Relationship Status Dates Dr. Lorraine Mena MD Primary Care Provider Active Start: January 09, 2025 End: January 09, 2025 Josefa Doss NP IT SECURITY CONSULTANT-C Attending Provider Active Start: January 09, 2025 End: January 09, 2025 Team Status: Active Member Role/Relationship Status Dates Dr. Lorraine Mena MD Primary Care Provider Active Start: January 13, 2025 Lorraine RAIN MD Attending Provider Active Start: January 13, 2025 Lorraine RAIN MD Referring Provider Active Start: January 13, 2025 Team Status: Active Member Role/Relationship Status Dates Dr. Lorraine Mena MD Primary Care Provider Active Start: January 20, 2025 Lorraine RAIN MD Attending Provider Active Start: January 20, 2025 Team Status: Inactive Member Role/Relationship Status Dates YARIEL Lorenzo Attending Provider Active Star t: January 21, 2025 End: January 21, 2025 Dr. Lorraine Mena MD Primary Care Provider Active Start: January 21, 2025 End: January 21, 2025 Dr. Lorraine Mena MD Referring Provider Active Start: January 21, 2025 End: January 21, 2025 Team Status: Inactive Member Role/Relationship Status Dates Dr. Daija Morton MD Referring Provider Active Start: January 23, 2025 End: January 23, 2025 DIEGO Castle Attending Provider Active S tart: January 23, 2025 End: January 23, 2025 Dr. Lorraine Mena MD Primary Care Provider Active Start: January 23, 2025 End: January 23, 2025 Team Status: Active Member Role/Relationship Status Dates Dr. Lorraine Mena MD Primary Care Provider Active Start: January 27, 2025 Lorraine RAIN MD Attending Provider Active Start: January 27, 2025 Team Status: Inactive Member Role/Relationship Status Dates Dr. Lorraine Mena MD Primary Care Provider Active Start: December 31, 2024 End: December 31, 2024 Dr. Lorraine Mena MD Attending Provider Active Start: December 31, 2024 End: December 31, 2024 Team Status: Inactive Member Role/Relationship Status Dates Dr. Daija Morton MD Primary Care Provider Active Start: January 03, 2025 End: January 03, 2025 Dr. Arnulfo Zhao DO Attending Provider Active Start: January 03, 2025 End: January 03, 2025 Dr. Arnulfo Zhao DO Emergency Provider Active Start: January 03, 2025 End: January 03, 2025 Team Status: Inactive Member Role/Relationship Status Dates Dr. Fco oMnroy MD Emergency Provider Active Sta rt: January 05, 2025 End: January 08, 2025 Dr. Lorraine Mena MD Primary Care Provider Active Start: January 05, 2025 End: January 08, 2025 Dr. Frankie Galindo MD Admit Provider Active Star t: January 05, 2025 End: January 08, 2025 Dr. Frankie Galindo MD Other Provider Active Star t: January 05, 2025 End: January 08, 2025 Dr. Ryan Guerin DO Attending Provider Active Start: January 05, 2025 End: January 08, 2025 Team Status: Active Member Role/Relationship Status Dates Dr. Fco Monroy MD Emergency Provider Active Sta rt: January 05, 2025 Dr. Lorraine Mena MD Primary Care Provider Active Start: January 05, 2025 Dr. Frankie Galindo MD Admit Provider Active Star t: January 05, 2025 Dr. Frankie Galindo MD Referring Provider Active Start: January 05, 2025 Dr. Frankie Galindo MD Other Provider Active Star t: January 05, 2025 Dr. Paulino Henderson DO Attending Provider Active Start: January 05, 2025 Team Status: Active Member Role/Relationship Status Dates Dr. Lorraine Mena MD Primary Care Provider Active Start: January 05, 2025 End: January 05, 2025 Dr. Geronimo Downey MD Attending Provider Active Start: January 05, 2025 End: January 05, 2025 Dr. Frankie Retana DO Referring Provider Active Start: January 05, 2025 End: January 05, 2025 Team Status: Active Member Role/Relationship Status Dates Dr. Lorraine Mena MD Primary Care Provider Active Start: January 06, 2025 End: January 08, 2025 Dr. Ryan Guerin DO Attending Provider Active Start: January 06, 2025 End: January 08, 2025 Team Status: Active Member Role/Relationship Status Dates Dr. Lorraine Mena MD Primary Care Provider Active Start: January 06, 2025 Dr. Paulino Henderson DO Attending Provider Active Start: January 06, 2025 Team Status: Active Member Role/Relationship Status Dates Dr. Fco Monroy MD Emergency Provider Active Sta rt: January 07, 2025 Dr. Lorraine Mena MD Primary Care Provider Active Start: January 07, 2025 Dr. Frankie Galindo MD Admit Provider Active Star t: January 07, 2025 Dr. Frankie Galindo MD Other Provider Active Star t: January 07, 2025 Dr. Ryan Guerin DO Other Provider Active S tart: January 07, 2025 Dr. Paulino Henderson DO Attending Provider Active Start: January 07, 2025 Team Status: Active Member Role/Relationship Status Dates Dr. Fco Monroy MD Emergency Provider Active Sta rt: January 07, 2025 Dr. Lorraine Mena MD Primary Care Provider Active Start: January 07, 2025 Dr. Frankie Galindo MD Admit Provider Active Star t: January 07, 2025 Dr. Frankie Galindo MD Other Provider Active Star t: January 07, 2025 Dr. Ryan Tereletsky , DO Attending Provider Active Start: January 07, 2025 Dr. Ryan Guerin , DO Other Provider Active S tart: January 07, 2025 Team Status: Active Member Role/Relationship Status Dates Dr. Fco Monroy MD Emergency Provider Active Sta rt: January 08, 2025 Dr. Lorraine Mena MD Primary Care Provider Active Start: January 08, 2025 Dr. Frankie Galindo MD Admit Provider Active Star t: January 08, 2025 Dr. Frankie Galindo MD Other Provider Active Star t: January 08, 2025 Dr. Ryan Guerin , Attending Provider Active Start: January 08, 2025 Dr. Ryan Guerin , DO Other Provider Active S tart: January 08, 2025 Team Status: Inactive Member Role/Relationship Status Dates Dr. Lorraine Mena MD Primary Care Provider Active Start: January 09, 2025 End: January 09, 2025 Josefa Doss NP IT SECURITY CONSULTANT-C Attending Provider Active Start: January 09, 2025 End: January 09, 2025 Team Status: Active Member Role/Relationship Status Dates Dr. Lorraine Mena MD Primary Care Provider Active Start: January 13, 2025 Lorraine RAIN MD Attending Provider Active Start: January 13, 2025 Lorraine RAIN MD Referring Provider Active Start: January 13, 2025 Team Status: Active Member Role/Relationship Status Dates Dr. Lorraine Mena MD Primary Care Provider Active Start: January 20, 2025 Lorraine RAIN MD Attending Provider Active Start: January 20, 2025 Team Status: Inactive Member Role/Relationship Status Dates YARIEL Lorenzo Attending Provider Active Star t: January 21, 2025 End: January 21, 2025 Dr. Lorraine Mena MD Primary Care Provider Active Start: January 21, 2025 End: January 21, 2025 Dr. Lorraine Mena MD Referring Provider Active Start: January 21, 2025 End: January 21, 2025 Team Status: Inactive Member Role/Relationship Status Dates Dr. Daija Morton MD Referring Provider Active Start: January 23, 2025 End: January 23, 2025 Hannah Busch NP-C Attending Provider Active S tart: January 23, 2025 End: January 23, 2025 Dr. Lorraine Mena MD Primary Care Provider Active Start: January 23, 2025 End: January 23, 2025 Team Status: Active Member Role/Relationship Status Dates Dr. Lorraine Mean MD Primary Care Provider Active Start: January 27, 2025 Lorraine RAIN MD Attending Provider Active Start: January 27, 2025 Team Status: Inactive Member Role/Relationship Status Dates Dr. Lorraine Mena MD Primary Care Provider Active Start: December 27, 2024 End: December 27, 2024 Josefa Doss IT SECURITY CONSULTANT, IT SECURITY CONSULTANT-C Attending Provider Active Start: December 27, 2024 End: December 27, 2024 Team Status: Active Member Role/Relationship Status Dates Dr. Daija Morton MD Primary Care Provider Active Start: December 30, 2024 Lorraine RAIN MD Attending Provider Active Start: December 30, 2024 Team Status: Active Member Role/Relationship Status Dates Dr. Daija Morton MD Primary Care Provider Active Start: December 31, 2024 Lorraine RAIN MD Attending Provider Active Start: December 31, 2024 Lorraine RAIN MD Referring Provider Active Start: December 31, 2024 Team Status: Inactive Member Role/Relationship Status Dates Dr. Lorraine Mena MD Primary Care Provider Active Start: December 31, 2024 End: December 31, 2024 Dr. Lorraine Mena MD Attending Provider Active Start: December 31, 2024 End: December 31, 2024 Team Status: Inactive Member Role/Relationship Status Dates Dr. Daija Morton MD Primary Care Provider Active Start: January 03, 2025 End: January 03, 2025 Dr. Arnulfo Zhao DO Attending Provider Active Start: January 03, 2025 End: January 03, 2025 Dr. Arnulfo Zhao DO Emergency Provider Active Start: January 03, 2025 End: January 03, 2025 Team Status: Inactive Member Role/Relationship Status Dates Dr. Fco Monroy MD Emergency Provider Active Sta rt: January 05, 2025 End: January 08, 2025 Dr. Lorraine Mena MD Primary Care Provider Active Start: January 05, 2025 End: January 08, 2025 Dr. Frankie Galindo MD Admit Provider Active Star t: January 05, 2025 End: January 08, 2025 Dr. Frankie Galindo MD Other Provider Active Star t: January 05, 2025 End: January 08, 2025 Dr. Ryan Guerin DO Attending Provider Active Start: January 05, 2025 End: January 08, 2025 Team Status: Active Member Role/Relationship Status Dates Dr. Fco Monroy MD Emergency Provider Active Sta rt: January 05, 2025 Dr. Lorraine Mena MD Primary Care Provider Active Start: January 05, 2025 Dr. Frankie Galindo MD Admit Provider Active Star t: January 05, 2025 Dr. Frankie Galindo MD Referring Provider Active Start: January 05, 2025 Dr. Frankie Galindo MD Other Provider Active Star t: January 05, 2025 Dr. Paulino Henderson DO Attending Provider Active Start: January 05, 2025 Team Status: Active Member Role/Relationship Status Dates Dr. Lorraine Mena MD Primary Care Provider Active Start: January 05, 2025 End: January 05, 2025 Dr. Geronimo Downey MD Attending Provider Active Start: January 05, 2025 End: January 05, 2025 Dr. Frankie Retana DO Referring Provider Active Start: January 05, 2025 End: January 05, 2025 Team Status: Active Member Role/Relationship Status Dates Dr. Lorraine Mena MD Primary Care Provider Active Start: January 06, 2025 End: January 08, 2025 Dr. Ryan Guerin DO Attending Provider Active Start: January 06, 2025 End: January 08, 2025 Team Status: Active Member Role/Relationship Status Dates Dr. Lorraine Mena MD Primary Care Provider Active Start: January 06, 2025 Dr. Paulino Henderson DO Attending Provider Active Start: January 06, 2025 Team Status: Active Member Role/Relationship Status Dates Dr. Fco Monroy MD Emergency Provider Active Sta rt: January 07, 2025 Dr. Lorraine Mena MD Primary Care Provider Active Start: January 07, 2025 Dr. Frankie Galindo MD Admit Provider Active Star t: January 07, 2025 Dr. Frankie Galindo MD Other Provider Active Star t: January 07, 2025 Dr. Ryan Guerin , Other Provider Active S tart: January 07, 2025 Dr. Paulino Henderson , Attending Provider Active Start: January 07, 2025 Team Status: Active Member Role/Relationship Status Dates Dr. Fco Monroy MD Emergency Provider Active Sta rt: January 07, 2025 Dr. Lorraine Mena MD Primary Care Provider Active Start: January 07, 2025 Dr. Frankie Galindo MD Admit Provider Active Star t: January 07, 2025 Dr. Frankie Galindo MD Other Provider Active Star t: January 07, 2025 Dr. Ryan Guerin DO Attending Provider Active Start: January 07, 2025 Dr. Ryan Guerin DO Other Provider Active S tart: January 07, 2025 Team Status: Active Member Role/Relationship Status Dates Dr. Fco Monroy MD Emergency Provider Active Sta rt: January 08, 2025 Dr. Lorraine Mena MD Primary Care Provider Active Start: January 08, 2025 Dr. Frankie Galindo MD Admit Provider Active Star t: January 08, 2025 Dr. Frankie Galindo MD Other Provider Active Star t: January 08, 2025 Dr. Ryan Guerin DO Attending Provider Active Start: January 08, 2025 Dr. Ryan Guerin DO Other Provider Active S tart: January 08, 2025 Team Status: Inactive Member Role/Relationship Status Dates Dr. Lorraine Mena MD Primary Care Provider Active Start: January 09, 2025 End: January 09, 2025 Josefa Doss IT SECURITY CONSULTANT, IT SECURITY CONSULTANT-C Attending Provider Active Start: January 09, 2025 End: January 09, 2025 Team Status: Active Member Role/Relationship Status Dates Dr. Lorraine Mena MD Primary Care Provider Active Start: January 13, 2025 Lorraine RAIN MD Attending Provider Active Start: January 13, 2025 Lorraine RANI MD Referring Provider Active Start: January 13, 2025 Team Status: Active Member Role/Relationship Status Dates Dr. Lorraine Mena MD Primary Care Provider Active Start: January 20, 2025 Lorraine RAIN MD Attending Provider Active Start: January 20, 2025 Team Status: Inactive Member Role/Relationship Status Dates YARIEL Lorenzo Attending Provider Active Star t: January 21, 2025 End: January 21, 2025 Dr. Lorraine Mena MD Primary Care Provider Active Start: January 21, 2025 End: January 21, 2025 Dr. Lorraine Mena MD Referring Provider Active Start: January 21, 2025 End: January 21, 2025 Team Status: Inactive Member Role/Relationship Status Dates Dr. Daija Morton MD Referring Provider Active Start: January 23, 2025 End: January 23, 2025 DIEGO Castle Attending Provider Active S tart: January 23, 2025 End: January 23, 2025 Dr. Lorraine Mena MD Primary Care Provider Active Start: January 23, 2025 End: January 23, 2025 Team Status: Active Member Role/Relationship Status Dates Dr. Lorraine Mena MD Primary Care Provider Active Start: January 27, 2025 Lorraine RAIN MD Attending Provider Active Start: January 27, 2025 Team Status: Inactive Member Role/Relationship Status Dates [...] 16, 2024 Dr. Lisha Talamantes , DO Attending Provider Active S tart: December 13, 2024 End: December 16, 2024 Team Status: Active Member Role/Relationship Status Dates Dr. Daija Morton MD Primary Care Provider Active Start: December 13, 2024 Dr. hCaris Walker DO Emergency Provider Active S tart: [...] December 16, 2024 Dr. Lisha Talamantes , Other Provider Active Start : December 16, [...] Mcgraw MS Other Provider Active Start: Landry fletcher 2024 End: December 26, 2024 Jo Hughes MD Other Provider Active Start: December 18, 2024 End: December 26, 2024 JOSETTE YANG MD Other Provider Active Start: J chance 2024 End: December 26, 2024 Angelo Wiley [...] Start : December 19, 2024 Dr. Ryan aVrgas MD Other Provider Active Sta rt: December 19, 2024 Tamika Xiao MD Other Provider Active Start : December 19, 2024 Dr. Hans Rosales MD Other Provider Active St art: December 19, 2024 Dr. Daylin Schmitt MD Other Provider Active Start : December 19, 2024 Dr. René Reon MD Other Provider Active Sta rt: December [...] Start : December 20, 2024 Dr. René eRno MD Other Provider Active Sta rt: December [...] Provider Active Start : December 21, 2024 Crhystal Collier MD Other Provider Active Start : [...] Provider Active S tart: December 23, 2024 Dr. Lisha Talamantes DO Referring Provider Active S tart: December 23, 2024 [...] December 23, 2024 Dr. Lisha Talamantes DO Referring Provider Active S tart: December 23, 2024 Dr. Lisha Talamantes DO Other Provider Active Start : December 23, 2024 Dr. Paulino Henderson , Attending Provider Active Start: December 23, 2024 [...] Start : December 24, 2024 Luan Mcgraw , Other Provider Active Start: 2024 Jo Hughes [...] Start : December 24, 2024 Luan Mcgraw , Other Provider Active Start: 2024 Jo Hughes MD Other Provider Active Start: December 24, 2024 JOSETTE YANG MD Other Provider Active Start: 2024 Angelo Wiley MD Other Provider Active Start: December 24, 2024 Neelam Almendarez MD Other Provider Active Start: December 24, 2024 Dr. Shilpa Contreras MD Referring Provider Active Start: December 24, 2024 Dr. Shilpa Contreras MD Other Provider Active St art: December 24, 2024 Dr. Lisha Talamantes DO Other Provider Active Start : December 24, 2024 Dr. Paulino Henderson DO Attending Provider Active Start: December 24, 2024 Team Status: Active Member Role/Relationship Status Dates Dr. Daija Morton MD Primary Care Provider Active Start: December 25, 2024 Dr. Seth Pritchard , Emergency Provider Active Start: December 25, 2024 Dr. Roman Patel , DO Admit Provider Active Start: December 25, 2024 Dr. Roman Patel , Other Provider Active Start: December 25, 2024 [...] Start : December 26, 2024 Team Status: Inactive Member Role/Relationship Status Dates Dr. Lorraine Mena MD Primary Care Provider Active Start: December 27, 2024 End: December 27, 2024 Josefa Doss IT SECURITY CONSULTANT, IT SECURITY CONSULTANT-C Attending Provider Active Start: December 27, 2024 End: December 27, 2024 Team Status: Active Member Role/Relationship Status Dates Dr. Lorraine Mena MD Primary Care Provider Active Start: January 06, 2025 Dr. Paulino Henderson DO Attending Provider Active Start: January 06, 2025 Dr. Frankie Galinod MD Referring Provider Active Start: January 06, 2025 Team Status: Active Member Role/Relationship Status Dates Dr. Fco Monroy MD Emergency Provider Active Sta rt: January 07, 2025 Dr. Lorraine Mena MD Primary Care Provider Active Start: January 07, 2025 Dr. Frankie Galindo MD Admit Provider Active Star t: January 07, 2025 Dr. Frankie Galindo MD Other Provider Active Star t: January 07, 2025 Dr. Ryan Guerin DO Referring Provider Active Start: January 07, 2025 Dr. Ryan Tereletsky , DO Other Provider Active S tart: January 07, 2025 Dr. Paulino Henderson DO Attending Provider Active Start: January 07, 2025 Team Status: Active Member Role/Relationship Status Dates Dr. Lorraine Mena MD Primary Care Provider Active Start: February 03, 2025 Lorraine RAIN MD Attending Provider Active Start: February 03, 2025 Team Status: Inactive Member Role/Relationship Status Dates Dr. Lorraine Mena MD Primary Care Provider Active Start: February 04, 2025 End: February 04, 2025 Josefa Doss NP, IT SECURITY CONSULTANT-C Attending Provider Active Start: February 04, 2025 End: February 04, 2025 Team Status: Active Member Role/Relationship Status Dates Dr. Lorraine Mena MD Primary Care Provider Active Start: February 09, 2025 Lorraine RAIN MD Attending Provider Active Start: February 09, 2025 Team Status: Active Member Role/Relationship Status Dates Dr. Lorraine Mena MD Primary Care Provider Active Start: February 11, 2025 Lorraine RAIN MD Attending Provider Active Start: February 11, 2025 Lorraine RAIN MD Referring Provider Active Start: February 11, 2025 Team Status: Active Member Role/Relationship Status Dates Dr. Lorraine Mena MD Primary Care Provider Active Start: February 18, 2025 Lorraine RAIN MD Attending Provider Active Start: February 18, 2025 Goals (unrecognized section and content) Goals [...] BE BASED ON THE PRIMARY CLINICAL RECORDS. [employer] [facility]. provides no warranty or guarantee of the accuracy or completeness of information in this document.
--- NOTE | 2025-03-14 05:15 | RAD_ITS ---
PROCEDURE: PELVIS 1 OR 2 VIEWS 03/14/2025 REASON FOR EXAM: FALL TECHNIQUE: Procedure Code: RADPEL Modality: DX Procedure: PELVIS 1 OR 2 VIEWS COMPARISON: 01/03/2025. FINDINGS: Unchanged old healed fractures in the right superior and inferior pubic rami. Unchanged iliac stents. Unchanged metallic clips in the pelvis. Unchanged well-defined sclerotic lesion of the right iliac bone, probably benign chronic bone island. Mild osteopenia of the visualized bones. Degenerative joint disease. No fracture or dislocation is seen. No lytic or blastic bone lesion is noted. RAD/Pelvis 1 or 2 Views IMPRESSION: No evidence for acute abnormality. Reading Location: [facility]
--- NOTE | 2025-03-14 05:50 | EX.ED.DYSGE1 ---
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 He is currently on Eliquis. [facility] he had a fall and struck his head and as he is on a blood thinner there is concern for underlying brain injury/bleed. They state he is at his baseline mental status. The patient cannot offer any further history based on his CVA and aphasia. [facility] Medical History (Updated 03/21/25 @ 01:[address] Arnulfo Zhao, DO) CVA (cerebral vascular accident) Aphasia Debility COPD (chronic obstructive pulmonary disease) Current use of rn long term care anticoagulation History of atrial fibrillation Obstructive sleep apnea Seizure disorder Lupus anticoagulant disorder Bronchospasm, acute Aspiration into respiratory tract Acute and chronic respiratory failure with hypoxia Hypertension Dyspnea Acute CVA (cerebrovascular accident) Hypertension Weakness Failure to thrive Compression fx, lumbar spine Hypertension Falls Hypertension Closed fracture of right superior pubic ramus Multiple falls Compression fracture of thoracic vertebra Iron deficiency anemia Chronic respiratory failure with hypoxia Osteoporosis Lumbar compression fracture Compression fracture Hyperlipidemia Asthma Peripheral arterial occlusive disease Chronic obstructive pulmonary disease Coronary artery disease BPH (benign prostatic hyperplasia) Ulcerative colitis Peripheral vascular disease Anxiety COPD (chronic obstructive pulmonary disease) with emphysema Closed fracture of right inferior pubic ramus Acute UTI COPD (chronic obstructive pulmonary disease) UTI (urinary tract infection) Depression Diabetes Kidney stones Chronic pain Pancreatitis On home oxygen therapy Irregular heart beat Atrial fibrillation Stroke/cerebrovascular accident Smoker Falls frequently Seizures Sleep apnea COPD (chronic obstructive pulmonary disease) Asthma High cholesterol Tobacco abuse Home Medications ?Medication ?Instructions ?Recorded ?Last Taken ?Type acetaminophen 325 mg tablet 650 mg (2 x 325 mg) feeding tube 12/24/24 Unknown Rx Q6H PRN PRN Pain 1-10 Or Fever>100.7 #0 tabs albuterol sulfate 2.5 mg/3 mL 2.5 mg (3 mL) inhalation Q4H PRN 12/24/24 Unknown Rx (0.083 %) solution for nebulization DYSPNEA/WHEEZING/SOB #0 mL amlodipine 10 mg tablet 10 mg G-tube DAILY.RT #0 tabs 12/24/24 Unknown Rx carbamazepine 100 mg/5 mL oral 200 mg (10 mL) G-tube 4X/DAY #0 mL 12/24/24 Unknown Rx suspension cholecalciferol (vitamin D3) 50 50 mcg feeding tube DAILY 12/24/24 01/05/25 Rx mcg (2,000 unit) tablet SUPPLEMENT 30 days #30 tabs clonidine 0.2 mg/24 hr weekly 0.2 mg transdermal Q7D #0 ea 12/24/24 Unknown Rx transdermal patch ergocalciferol (vitamin D2) 1,250 1,250 mcg feeding tube Q7D 12/24/24 12/13/24 08:58 Rx mcg (50,000 unit) capsule (Vitamin SUPPLEMENT #0 caps D2) finasteride 5 mg tablet 5 mg feeding tube DAILY prostate 12/24/24 12/13/24 08:58 Rx 30 days #30 tabs gabapentin 100 mg capsule 100 mg feeding tube DAILY PAIN 30 12/24/24 12/13/24 08:58 Rx days #30 caps ipratropium 0.5 mg-albuterol 3 mg 3 ml inhalation .q6hwa #0 mL 12/24/24 Unknown Rx (2.5 mg base)/3 mL nebulization soln lactose-reduced food with fiber 55 ml feeding tube .18hours #5,688 12/24/24 Unknown Rx 0.06 gram-1.5 kcal/mL oral liquid mL (Jevity 1.5 Alex) losartan 100 mg tablet 100 mg feeding tube DAILY Blood 12/24/24 12/13/24 08:58 Rx pressure 30 days #30 tabs melatonin 3 mg tablet 3 mg G-tube QHS PRN PRN Insomnia 12/24/24 Unknown Rx #0 tabs mirtazapine 15 mg tablet 15 mg feeding tube QHS anti 12/24/24 12/12/24 20:59 Rx depressant 30 days #30 tabs sertraline 100 mg tablet 100 mg feeding tube DAILY 12/24/24 Unknown Rx DEPRESSION 30 days #30 tabs thiamine HCl (vitamin B1) 100 mg 100 mg G-tube BREAKFAST #0 tabs 12/24/24 Unknown Rx tablet hydralazine 25 mg tablet 50 mg G-tube 3XD 01/03/25 Unknown History metoprolol tartrate 25 mg tablet 50 mg feeding tube BID Blood 01/03/25 Unknown History pressure apixaban 5 mg tablet (Eliquis) 5 mg G-tube BID #0 tabs 01/08/25 Unknown Rx atorvastatin 40 mg tablet 40 mg G-tube QHS #0 tabs 01/08/25 Unknown Rx lansoprazole 30 mg capsule,delayed 30 mg feeding tube BID #1 cap 01/08/25 Unknown Rx release (Prevacid) prednisone 20 mg tablet 40 mg (2 x 20 mg) G-tube BREAKFAST 01/08/25 Unknown Rx #0 tabs nicotine 21 mg/24 hr daily 1 patch topical QDAY 01/23/25 Unknown History transdermal patch Allergy/AdvReac Type Severity Reaction Status Date / Time No Known Allergies Allergy Verified 01/23/25 10:30 Family History Mother Heart disease CVA (cerebral vascular accident) Hypertension Father Heart disease CVA (cerebral vascular accident) Hypertension Surgical History S/P arterial stent History of appendectomy Social History household members: caregiver housing: jail 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 Smoking Status: Current every day smoker tobacco type: cigarettes alcohol intake: former details: Former alcoholic quit several years ago substance use type: does not use caffeine: Yes Type: coffee Number of servings: 3 ROS ROS ED ROS Narrative Unable to obtain review of systems based on patient's previous CVA and aphasia EXAM Physical Exam Const Vital Signs: 03/14/25 04:23 03/14/25 04:23 Temperature 97 F L Temperature Source Axillary Pulse Rate 60 Respiratory Rate 18 Respiratory Effort Normal Respiratory Depth Normal Respiratory Pattern Normal Pulse Ox 92 Oxygen Delivery Method Room Air Room Air Positive well nourished and well developed General Appearance ED: well developed HEENT HEENT Narrative: No signs of depressed or basilar skull fracture Eyes PERRL and EOMs intact bilaterally Neck Neck Narrative: No bony deformity or step-off of the cervical spine Chest Wall palpation of chest normal Chest Narrative: No bony deformity or subcutaneous emphysema noted Resp normal respiratory effort Resp Narrative: Breath sounds are diminished throughout with faint rhonchi and expiratory wheeze in the bilateral bases consistent with history of COPD but no signs of respiratory distress Cardio regular rate and regular rhythm GI non-distended and no masses GI Narrative: Abdomen is soft and nondistended with normal active bowel sounds. No pulsatile mass or rigidity noted Auscultation: normoactive bowel sounds Palpation: soft Back/Spine Back/Spine Narrative: No obvious bony deformity or step-off of the thoracic or lumbar spine Extremity Extremity Narrative: Pelvis is stable there is no shortening or external rotation of either lower extremity No signs of long bone injury such as bony deformity or joint effusion Neuro Neuro Narrative: Patient is at his baseline mental status according to jail with chronic changes from previous CVA but no new or acute findings Skin no rashes or lesions noted and no wounds MDM MDM MDM Narrative Medical decision making narrative: Patient arrived to the ER with stable vitals. He cannot provide any history based on his previous CVA and aphasia. However jail reports there was a fall and had concern he struck his head. Therefore as he is on Eliquis there was concern for a traumatic subarachnoid or subdural hemorrhage or patient could also have a cervical compression fracture. In order to rule out a pubic rami or femoral neck fracture a pelvis x-ray was added. As there is no obvious signs of trauma on the remainder of the exam I felt no need for further testing. All images revealed no signs of acute injury. Therefore his vitals are stable and patient is at his baseline mental status and imaging studies revealed no sign of acute trauma there is no need for further workup in the ER and is otherwise safe for discharge Radiography Diagnostic Testing: Clinical Impression(s) from Imaging Studies Brain CT 03/14/25 04:59 IMPRESSION: No acute cerebrovascular insult. If clinical symptoms persist, further evaluation with MRI may be considered as clinically warranted. No intracerebral or extra axial hemorrhage Left frontotemporal chronic infarct. Bilateral cerebral microvascular ischemic changes with brain involutional changes. stable. Reading Location: [facility] Cervical Spine CT 03/14/25 04:59 IMPRESSION: Straightened cervical curve denoting myospasm. No vertebral fractures, structural collapse or dislocation. Cervical spondylodegenerative changes with multilevel uncovertebral and facet arthropathy along with diffuse disc bulges inducing spinal canal and neural exit pathway compromise. No interval changes. Reading [facility] Pelvis X-Ray 03/14/25 05:15 IMPRESSION: No evidence for acute abnormality. [facility] Pelvis x-ray as interpreted by the emergency medicine physician reveals no acute fracture or dislocation Discharge Plan Triage Chief Complaint: Fall ED Provider: Arnulfo Zhao Dx/Rx/DC Orders Clinical Impression: Accidental fall, Aphasia, Debility, Current use of rn long term care anticoagulation, CVA (cerebral vascular accident), COPD (chronic obstructive pulmonary disease) Instructions: Fall Prevention Assessing Risk Prescriptions: No Action nicotine 21 mg/24 hr patch 24 hour 1 patch topical QDAY acetaminophen 325 mg Tablet 650 mg feeding tube Q6H PRN PRN (Reason: Pain 1-10 Or Fever>100.7) Qty: 0 0RF ipratropium-albuterol 0.5 mg-3 mg(2.5 mg base)/3 mL Solution For Nebulization 3 ml inhalation .q6hwa Qty: 0 0RF albuterol sulfate 2.5 mg /3 mL (0.083 %) Solution For Nebulization 2.5 mg inhalation Q4H PRN (Reason: DYSPNEA/WHEEZING/SOB) Qty: 0 0RF clonidine 0.2 mg/24 hr Patch Weekly 0.2 mg transdermal Q7D Qty: 0 0RF amlodipine 10 mg Tablet 10 mg G-tube DAILY.RT Qty: 0 0RF carbamazepine 100 mg/5 mL Suspension 200 mg G-tube 4X/DAY Qty: 0 0RF melatonin 3 mg Tablet 3 mg G-tube QHS PRN PRN (Reason: Insomnia) Qty: 0 0RF thiamine HCl (vitamin B1) 100 mg Tablet 100 mg G-tube BREAKFAST Qty: 0 0RF Jevity 1.5 Alex 0.06 gram-1.5 kcal/mL liquid 55 ml feeding tube .18hours Qty: 5688 0RF Rx Instructions: Goal TF: 55 ml/hr to run for 18 hours/day. Upon SNF transition goal is to achieve this and would plan to increase by 10 ml/hr every 8-12 hours until achieve the goal of 55 ml/hr for the 18 hour run daily. Flush 165 ml free water every 4 hours. sertraline 100 mg tablet 100 mg feeding tube DAILY 30 Days Qty: 30 0RF mirtazapine 15 MG tablet 15 mg feeding tube QHS 30 Days Qty: 30 0RF gabapentin 100 mg capsule 100 mg feeding tube DAILY 30 Days Qty: 30 0RF ergocalciferol (vitamin D2) [Vitamin D2] 1,250 mcg (50,000 unit) Capsule 1,250 mcg feeding tube Q7D Qty: 0 0RF losartan 100 mg tablet 100 mg feeding tube DAILY 30 Days Qty: 30 0RF finasteride 5 MG tablet 5 mg feeding tube DAILY 30 Days Qty: 30 0RF Patient Comments: prostate cholecalciferol (vitamin D3) 50 mcg (2,000 unit) tablet 50 mcg feeding tube DAILY 30 Days Qty: 30 0RF hydralazine 25 mg Tablet 50 mg G-tube 3XD metoprolol tartrate 25 mg tablet 50 mg feeding tube BID atorvastatin 40 mg Tablet 40 mg G-tube QHS Qty: 0 0RF prednisone 20 mg Tablet 40 mg G-tube BREAKFAST Qty: 0 0RF Eliquis 5 mg Tablet 5 mg G-tube BID Qty: 0 0RF lansoprazole [Prevacid] 30 mg capsule,delayed release(DR/EC) 30 mg feeding tube BID Qty: 1 0RF Primary Care Provider: Lorraine Mena Referrals: Lorraine Mena MD [Primary Care Provider, Internal Medicine] Activity Restrictions/Additional Instructions: The CT scan of your head and cervical spine revealed no sign of acute trauma such as bleed or fracture. There is also no injury to the pelvis noted. Therefore continue all of your medications as previously directed and return to the ER should you have any further concerns Print Language: Kazakh Disposition Disposition: Home, Self Care Discharge Date/Time: 03/14/25 07:59
[2025-03-14 06:04] VITALS: BP 143/36; PULSE 58; RESP 16; TEMP 36.6; O2SAT 94
--- NOTE | 2025-03-14 06:11 | ED.RN ---
This RN attempted to call report to [facility], however there was no response. Voicemail left, requesting for a return call from the facility to obtain report on the patient's care while at [facility].
[2025-03-14 06:22] VITALS: BP 135/89; PULSE 61; RESP 18; O2SAT 92
== END 2025-03-14 07:59 | disposition home or self-care (01) ==
PROVIDERS: Emergency Provider Emergency Medicine; PCP Internal Medicine; Visit Provider Emergency Medicine
DX: Z04.3 Encounter for examination and observation following other accident (principal); J44.9 Chronic obstructive pulmonary disease, unspecified; I48.91 Unspecified atrial fibrillation; E11.51 Type 2 diabetes mellitus with diabetic peripheral angiopathy without gangrene; I69.320 Aphasia following cerebral infarction; R53.81 Other malaise; I10 Essential (primary) hypertension; W19.XXXA Unspecified fall, initial encounter; I69.398 Other sequelae of cerebral infarction; I25.10 Atherosclerotic heart disease of native coronary artery without angina pectoris; N40.0 Benign prostatic hyperplasia without lower urinary tract symptoms; M81.0 Age-related osteoporosis without current pathological fracture; F41.9 Anxiety disorder, unspecified; F32.A Depression, unspecified; E78.00 Pure hypercholesterolemia, unspecified; G47.33 Obstructive sleep apnea (adult) (pediatric); F17.210 Nicotine dependence, cigarettes, uncomplicated; Z87.19 Personal history of other diseases of the digestive system; Z79.01 Long term (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 of anticoagulants; Z79.51 Long term (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 of inhaled steroids; Z79.899 Other long term (current) drug therapy
CPT/HCPCS: 70450; 72125; 72170; 99284

== ENCOUNTER 2025-05-03 17:22 | Inpatient (IN) | payer MEDICARE, MEDICAID, SELFPAY ==
[2025-05-03] VITALS (22 sets, daily range): BP systolic 106–159; BP diastolic 55–94; PULSE 64–117; RESP 18–33; TEMP 36.7–37.1; O2SAT 85–98; BMI 18.3; BMI 17.3
--- NOTE | 2025-05-03 17:47 | CT_ITS ---
PROCEDURE: CTA CHEST W/WO CONTRAST 05/03/2025 REASON FOR EXAM: RULE OUT PE, PNA TECHNIQUE: Procedure Code: [id number] Modality: CT Procedure: CTA CHEST W/WO CONTRAST Multiplanar Sagittal and Coronal images were obtained. 3D reconstructions CONTRAST: ? VOLUME: ? ML One or more dose reduction techniques were used (e.g., Automated exposure control, adjustment of the mA and/or kV according to patient size, use of iterative reconstruction technique). RADIATION DOSE SUMMARY: CTDlvol: 10 mGy DLP: 369 MGycm FINDINGS: the right lung is clear. There is an area of abnormal spiculated density in the left upper lobe to the left of the mediastinum. I do not have the benefit of prior chest CTs to make a direct comparison. There is a 2nd area of probable scarring in the left lower lobe on image 129. Minimal inflammatory changes in the right lower lobe peripherally. No significant consolidation or edema. Mild centrilobular emphysema. Gastrostomy tube in place. No aortic aneurysm or dissection. Marginal aortic calcification. There are no pulmonary emboli. CT/CTA Chest W/WO Contrast IMPRESSION: 1. Negative for pulmonary embolus. 2. Spiculated density in the left upper lobe. If possible consider correlation with PET-CT. No prior studies. At a quality control representative level on image 136, this measures 31 x 22 mm with neoplasm to be excluded Reading [facility]
--- NOTE | 2025-05-03 17:48 | EKG12_ITS ---
Test Reason : SOB/HYPOXIA Blood Pressure : */* mmHG Vent. Rate : 88 BPM Atrial Rate : 88 BPM P-R Int : 200 ms QRS Dur : 84 ms QT Int : 354 ms P-R-T Axes : 75 57 78 degrees QTcB Int : 428 ms Sinus rhythm with Premature atrial complexes Otherwise normal ECG Confirmed by DIMAS RANDALL, NATE ([id number]), editor trade journal ETHAN DAIGLE ([id number]) on 05/05/2025 9:14:51 AM Referred By: Confirmed By: NATE COCHRAN MD
--- NOTE | 2025-05-03 18:20 | ED.VIS.DYS ---
HPI History of Present Illness Chief Complaint: Shortness of Breath Narrative Narrative: Patient is a 74-year-old male presenting to the emergency department for shortness of breath. Patient has a past medical history of CVA with aphasia, PEG tube, seizure disorder, PJ, COPD on 4 L nasal cannula at baseline, A-fib on Eliquis. Patient is unable to provide history due to his prior stroke and resultant aphasia. Reportedly he was at [facility] and was tripoding. He was 70% on 4 L per EMS. Patient unable to provide history only says yes and ow to any question asked. [facility] Medical History CVA (cerebral vascular accident) Aphasia Debility COPD (chronic obstructive pulmonary disease) Current use of shelter anticoagulation History of atrial fibrillation Obstructive sleep apnea Seizure disorder Lupus anticoagulant disorder Bronchospasm, acute Aspiration into respiratory tract Acute and chronic respiratory failure with hypoxia Hypertension Dyspnea Acute CVA (cerebrovascular accident) Hypertension Weakness Failure to thrive Compression fx, lumbar spine Hypertension Falls Hypertension Closed fracture of right superior pubic ramus Multiple falls Compression fracture of thoracic vertebra Iron deficiency anemia Chronic respiratory failure with hypoxia Osteoporosis Lumbar compression fracture Compression fracture Hyperlipidemia Asthma Peripheral arterial occlusive disease Chronic obstructive pulmonary disease Coronary artery disease BPH (benign prostatic hyperplasia) Ulcerative colitis Peripheral vascular disease Anxiety COPD (chronic obstructive pulmonary disease) with emphysema Closed fracture of right inferior pubic ramus Acute UTI COPD (chronic obstructive pulmonary disease) UTI (urinary tract infection) Depression Diabetes Kidney stones Chronic pain Pancreatitis On home oxygen therapy Irregular heart beat Atrial fibrillation Stroke/cerebrovascular accident Smoker Falls frequently Seizures Sleep apnea COPD (chronic obstructive pulmonary disease) Asthma High cholesterol Tobacco abuse Home Medications ?Medication ?Instructions ?Recorded ?Last Taken ?Type acetaminophen 325 mg tablet 650 mg (2 x 325 mg) feeding tube 12/24/24 Unknown Rx Q6H PRN PRN Pain 1-10 Or Fever>100.7 #0 tabs albuterol sulfate 2.5 mg/3 mL 2.5 mg (3 mL) inhalation Q4H PRN 12/24/24 Unknown Rx (0.083 %) solution for nebulization DYSPNEA/WHEEZING/SOB #0 mL amlodipine 10 mg tablet 10 mg G-tube DAILY.RT #0 tabs 12/24/24 Unknown Rx carbamazepine 100 mg/5 mL oral 200 mg (10 mL) G-tube 4X/DAY #0 mL 12/24/24 Unknown Rx suspension cholecalciferol (vitamin D3) 50 50 mcg feeding tube DAILY 12/24/24 01/05/25 Rx mcg (2,000 unit) tablet SUPPLEMENT 30 days #30 tabs clonidine 0.2 mg/24 hr weekly 0.2 mg transdermal Q7D #0 ea 12/24/24 Unknown Rx transdermal patch ergocalciferol (vitamin D2) 1,250 1,250 mcg feeding tube Q7D 12/24/24 12/13/24 08:58 Rx mcg (50,000 unit) capsule (Vitamin SUPPLEMENT #0 caps D2) finasteride 5 mg tablet 5 mg feeding tube DAILY prostate 12/24/24 12/13/24 08:58 Rx 30 days #30 tabs ipratropium 0.5 mg-albuterol 3 mg 3 ml inhalation .q6hwa #0 mL 12/24/24 Unknown Rx (2.5 mg base)/3 mL nebulization soln lactose-reduced food with fiber 55 ml feeding tube .18hours #5,688 12/24/24 Unknown Rx 0.06 gram-1.5 kcal/mL oral liquid mL (Jevity 1.5 Alex) losartan 100 mg tablet 100 mg feeding tube DAILY Blood 12/24/24 12/13/24 08:58 Rx pressure 30 days #30 tabs melatonin 3 mg tablet 3 mg G-tube QHS PRN PRN Insomnia 12/24/24 Unknown Rx #0 tabs mirtazapine 15 mg tablet 15 mg feeding tube QHS anti 12/24/24 12/12/24 20:59 Rx depressant 30 days #30 tabs sertraline 100 mg tablet 100 mg feeding tube DAILY 12/24/24 Unknown Rx DEPRESSION 30 days #30 tabs thiamine HCl (vitamin B1) 100 mg 100 mg G-tube BREAKFAST #0 tabs 12/24/24 Unknown Rx tablet hydralazine 25 mg tablet 50 mg G-tube 3XD 01/03/25 Unknown History metoprolol tartrate 25 mg tablet 50 mg feeding tube BID Blood 01/03/25 Unknown History pressure apixaban 5 mg tablet (Eliquis) 5 mg G-tube BID #0 tabs 01/08/25 Unknown Rx atorvastatin 40 mg tablet 40 mg G-tube QHS #0 tabs 01/08/25 Unknown Rx lansoprazole 30 mg capsule,delayed 30 mg feeding tube BID #1 cap 01/08/25 Unknown Rx release (Prevacid) Allergy/AdvReac Type Severity Reaction Status Date / Time No Known Allergies Allergy Verified 01/23/25 10:30 Family History Mother Heart disease CVA (cerebral vascular accident) Hypertension Father Heart disease CVA (cerebral vascular accident) Hypertension Surgical History S/P arterial stent History of appendectomy Social History household members: caregiver housing: [facility] 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 Smoking Status: Light Smoker (<10/day) alcohol intake: former details: Former alcoholic quit several years ago substance use type: does not use caffeine: Yes Type: coffee Number of servings: 3 ROS ROS ED ROS Narrative unable to be obtained from patient due to CVA and aphasia hx Review of Systems ROS Unobtainable: due to mental condition EXAM Physical Exam Narrative Exam Narrative: Vital signs: Reviewed General: Alert. Chronically ill appearing. Appears comfortable, no acute distress. HEENT: Head is normocephalic and atraumatic, sinuses nontender, pupils equal round and reactive. Nares are patent. Oropharynx and throat exams normal. Neck: Supple without lymphadenopathy nontender Cardiovascular: Regular rate and rhythm, no murmurs. No rubs or gallops. Normal S1 and S2 Respiratory: Coarse lung sounds in all lung batres, no wheezing noted. Decreased lung sounds throughout. On airvo on my evaluation of the patient saturating 94%. Abdominal: Soft and nontender. Normal bowel sounds. No guarding or rebound. Nonsurgical abdomen Extremities: No lower extremity edema. No tenderness. No bruising. Skin: No rash or redness. Neurological: Baseline mental status per facility. The rest of the physical exam is unremarkable Const Vital Signs: 05/03/25 17:27 05/03/25 17:31 05/03/25 17:54 Temperature 98.3 F Temperature Source Axillary Pulse Rate 89 Respiratory Rate 23 H Respiratory Effort Short of Breath Respiratory Pattern Tachypnea Blood Pressure 132/62 H Blood Pressure Mean 85 Pulse Ox 89 92 Oxygen Delivery Method Nasal Cannula Nasal Cannula Nasal Cannula Oxygen Flow Rate (L/min) 4 6 Fraction of Inspired Oxygen (FIO2) 11/15/25 17:55 05/03/25 17:58 05/03/25 18:28 Temperature Temperature Source Pulse Rate 90 64 Respiratory Rate 22 H 18 Respiratory Effort Respiratory Pattern Irregular Blood Pressure 137/78 H Blood Pressure Mean 97 Pulse Ox 93 98 Oxygen Delivery Method Airvo Room Air Oxygen Flow Rate (L/min) 45 Fraction of Inspired Oxygen (FIO2) 55 05/03/25 18:31 05/03/25 19:00 05/03/25 19:23 Temperature 98.7 F 98.2 F Temperature Source Oral Oral Pulse Rate 93 89 91 Respiratory Rate 27 H 26 H 25 H Respiratory Effort Respiratory Pattern Blood Pressure 138/56 H 147/65 H 147/65 H Blood Pressure Mean 83 92 92 Pulse Ox 93 95 93 Oxygen Delivery Method High Flow High Flow Oxygen Flow Rate (L/min) Fraction of Inspired Oxygen (FIO2) 05/03/25 19:30 05/03/25 19:45 05/03/25 20:00 Temperature 98.0 F Temperature Source Temporal Pulse Rate 88 91 90 Respiratory Rate 18 21 H 20 H Respiratory Effort Respiratory Pattern Blood Pressure 106/64 144/59 H 143/68 H Blood Pressure Mean 75 83 93 Pulse Ox 96 Oxygen Delivery Method High Flow Oxygen Flow Rate (L/min) Fraction of Inspired Oxygen (FIO2) 05/03/25 20:00 05/03/25 20:15 05/03/25 20:24 Temperature Temperature Source Pulse Rate 99 117 H Respiratory Rate 23 H Respiratory Effort Respiratory Pattern Blood Pressure 141/94 H 143/68 H Blood Pressure Mean 109 87 Pulse Ox Oxygen Delivery Method Oxygen Flow Rate (L/min) Fraction of Inspired Oxygen (FIO2) 05/03/25 20:30 Temperature Temperature Source Pulse Rate 100 Respiratory Rate 33 H Respiratory Effort Respiratory Pattern Blood Pressure 159/55 H Blood Pressure Mean 82 Pulse Ox 85 Oxygen Delivery Method Oxygen Flow Rate (L/min) Fraction of Inspired Oxygen (FIO2) MDM MDM MDM Narrative Medical decision making narrative: Patient is a 74-year-old male presenting to the emergency department for dyspnea. Patient was seen and examined. Vitals are stable. He is on Airvo when I evaluate him saturating 93 to 94%. He appears to not be in any acute distress, appears comfortable. Mildly tachypneic at 22. He is afebrile. Stable BP of 132/62. Differential includes but is not limited to: COPD exacerbation, pneumonia, ACS, URI, pneumothorax On chart review the patient I only see has a history of COPD in relation to lung issues. No CHF history. His lung sounds are coarse there is no wheezing however will attempt to DuoNebs and Solu-Medrol. VBG with no significant respiratory acidosis. Viral swab negative. CBC with no leukocytosis and chronic anemia of 10.4. BMP with slight worsening of kidney function with BUN 36 creatinine 1.42. Magnesium within normal limits. Troponin reflex of 41 and then downtrending to 34. EKG shows sinus rhythm with PACs. No ischemic changes. Do not suspect a cardiac cause of the mildly elevated troponin. Likely secondary to the COPD exacerbation. Given the patient's decreased mobility, CTA of the chest was ordered to rule out pulmonary embolism as the cause of his shortness of breath however less likely given his use of oral anticoagulation. CTA is negative for pulmonary embolus. Spiculated density in the left upper lobe. If possible consider correlation with PET-CT. No prior studies. At a goodwill representative level on image 136, this measures 31 x 22 mm with neoplasm to be excluded. Patient reevaluated, still on Airvo however did attempt to titrate him off to 6 L however he did drop down into the mid 80s and thus was placed back on Airvo. Patient will be admitted to the hospitalist, Dr. Contreras for a presumed COPD exacerbation. Clinical impression: COPD exacerbation Elevated troponin History & Record Review Discussion w/independent historian: EMS personnel Additional record(s) reviewed:: Prior ED visit and Prior labs Lab Data Attestation: I reviewed the patient's lab results. Labs: Laboratory Results - last 24 hr 05/03/25 05/03/25 18:10 20:40 WBC 10.8 RBC 4.09 L Hgb 10.4 L Hct 35.0 L MCV 85.6 MCH 25.4 L MCHC 29.7 L RDW Std Deviation 55.7 H RDW Coeff of Aly 17.8 H Plt Count 488 H MPV 10.1 Immature Gran % (Auto) 0.300 Neut % (Auto) 81.6 H Lymph % (Auto) 9.9 L [place] % (Auto) 6.9 Eos % (Auto) 0.7 Baso % (Auto) 0.6 Absolute Neuts (auto) 8.8 H Absolute Lymphs (auto) 1.07 Nucleated RBC % 0 Sodium 142 Potassium 4.1 Chloride 102 Carbon Dioxide 27.3 Anion Gap 12 BUN 36 H Creatinine 1.42 H Estim Creat Clear Calc 38.97 L Est GFR (MDRD) Non-Af 52 L BUN/Creatinine Ratio 25.5 H Glucose 126 H Calcium 9.9 Magnesium 2.2 Troponin T High Sens 41 H D Troponin T Hi Sens 2 Hr 34 H Procalcitonin 0.12 H ABG Data ABG results: ABG 05/03/25 18:25 Specimen Type LASHAE Sample Site Not entered O2 % 55.0 VBG pH 7.41 VBG pO2 27 VBG HCO3 28 H VBG Total CO2 30 VBG O2 Sat (Calc) 51 VBG Base Excess 3 POC Mix VBG pCO2 Pt Tmp 44.6 O2 Delivery Device CPAP Clinical Comments Airvo 45L 55% Radiography Diagnostic Testing: Clinical Impression(s) from Imaging Studies Chest CTA 05/03/25 17:47 IMPRESSION: 1. Negative for pulmonary embolus. 2. Spiculated density in the left upper lobe. If possible consider correlation with PET-CT. No prior studies. At a goodwill representative level on image 136, this measures 31 x 22 mm with neoplasm to be excluded [facility] Discharge Plan Disposition Disposition: Acute Care Hospital [facility] Discharge Date/Time: 05/03/25 21:41
[2025-05-03 18:27] LABS: Hematocrit 35.0 % (40-54); Hemoglobin 10.4 g/dL (13.0-16.5); Immature Granulocytes Count 0.030 X10^3/uL (0.0-0.0); Mean Corp Hgb Conc 29.7 g/dL (32-36); Mean Corpuscular Volume 85.6 fL (80-94); Mean Platelet Vol. 10.1 fl (6.2-12.0); NRBC Flagged by Analyzer 0 % (0-5); Platelet Count 488 K/mm3 (150-450); RBC Distribution Width CV 17.8 % (11.6-14.6); RBC Distribution Width SD 55.7 fl (35.1-43.9); Red Blood Count 4.09 M/mm3 (4.6-6.2); White Blood Count 10.8 K/mm3 (4.4-11.0)
[2025-05-03 18:28] LABS: FI02 55.0; SITE Not entered; VBG BASE EXCESS 3 mmol/L (-1.0-3.5); VBG PO2 27 mmHg (25-40); VBG SO2 51 % (50-70); VBG TCO2 30 mmol/L (23-33)
--- OUTSIDE RECORDS SUMMARY | 2025-05-03 18:44 | XMS RPT_ITS | CCD ---
Author Organization [facility] Care Team Providers Care Orderly Name Role Phone Selene RANDALL, Daija Primary Care Provider Madeline FIELD DIRECTOR, Beatriz Unavailable Unavailab johnson Morton MD, Daija Unavailable 13, Pharmacist Unavailable Artemio RN, Lizette Unavailable Dr. Daija Morton Primary Care Provider Dr. Jaden Toribio Referring Provider Dr. Jaden Toribio Other Provider Dr. Soto Trujillo Attending Provider Dr. Mikcy Good Emergency Provider Dr. Cornelius Andrews Attending [...] Care Provider Madeline BELLO, Beatriz Unavailable Unavailab le Daija Morton MD Unavailable Mode RANDALL, Ye Unavailable Shania DENISE, Emilie Smart Unavailable Ryan May MD Unavailable Geronimo Medina DO Unavailable Dr. Raul Melchor Emergency Provider Dr. Fran Cartwright Admit Provider Dr. Fran Cartwright Attending Provider Dr. Fran Cartwright Other Provider Dr. Paulino Henderson Attending Provider Santiago, Dr. Bob Other Provider Dr. Brody Mayanrd Other Provider Dr. Brody Maynard Attending Provider [...] Unavailable Dr. Frankie Galindo Other Provider Unavailable Oscar, Dr. Wallace Other Provider [phone] Geroniom Medina DO Unavailable Dr. Daija Morton Primary Care Provider Dr. Huber Alvarado Emergency Provider Dr. Fran Cartwrightit Provider Dr. Fran Cartwright Attending Provider Chay, [...] Care Provider Dr. Huber Alvarado Emergency Provider AgDr. Fran torres Admit Provider Dr. Fran Cartwright Other Provider Dr. Frankie Galindo Attending Provider Unavailable Mateo, Other Provider Unavailable Dr. Celia Toribio Other Provider Dr. Elton Moore Other Provider [phone] Raul Melchor Emergency Provider Dr. Андрей Cooley Attending Provider Dr. Андрей Cooleyit Provider Dr. Андрей Cooley Other Provider Dr. Roman Patel Attending Provider Dr. Roman Patel Other Provider Dr. Daija Morton Primary Care Provider Dr. Huber Alvarado Emergency Provider Dr. Fran Cartwright Admit Provider Dr. rFan Cartwright Other Provider Dr. Frankie Galindo Attending [...] Selene RANDALL, Dr. Choe Primary Care Provider Rosa Maria RANDALL, Dr. Aguirre Attending Provider Unavaila deandre [...] Selene RANDALL, Dr. Choe Primary Care Provider Rosa Maria RANDALL, Dr. 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 Vizcaino Emergency [...] Provider Caesar RANDALL, Dr. Skinner Other Provider Rosa Maria RANDALL, Dr. Aguirre Attending Provider Unavaila ble Ungur , Dr. Vizcaino Emergency Provider [phone] Ben RANDALL, Dr. Shilpa Ashton Admit Provider Ben RANDALL, Dr. Shilpa Ashton Other Provider Ben RANDALL, Dr. Shilpa Ashton Attending Provider Dr. Seth Pritchard DO Emergency Provider Jorge GUTIERREZ, Dr. Owens Admit Provider Dr. [...] Unavailable Ja RANDALL, Dr. Horan Other Provider Amy Chun MD Other Provider Unavailable Dr. Mackenzie Guzmán DO Other Provider Jairo RANDALL, Dr. Bowens Other Provider [phone] Rolly RANDALL, Dr. Guzman Other Provider Hoang RANDALL, Dr. Mcclure Other Provider [phone] Jasper RANDALL, Dr. Lara Other Provider Tim RANDLAL, Dr. Tineo Other Provider Sam RANDALL, Dr. Davis Other Provider Dameon RANDALL, Tamika Other Provider Connie RANDALL, Dr. Maxwell Other [...] Other Provider Saul RANDALL, Jo Other Provider [phone] CELIA RANDALL, JOSETTE Other Provider Inez RANDALL, Angelo Other Provider [phone] Tanesha RANDALL, Neelam Other Provider Mikey RANDALL, Dr. Carter Attending Provider Santiago GUTIERREZ, Dr. Bob Attending Provider Selene RANDALL, Dr. Choe Primary Care Provider Albin GUTIERREZ, Dr. Husain Other Provider Lorraine Mena MD Attending Provider Unavailluis Zhao DO, Dr. Arredondo Emergency Provider Dr. Fco Monroy MD Emergency Provider Trina RANDALL, Dr. Peters Primary Care Provider Mateo RANDALL, Admit Provider Unavailable Mateo RANDALL, Attending Provider Jacques Galindo MD, Other Provider Unavailable Apoorva GUTIERREZ, Dr. Davis Attending Provider Dr. Ryan Guerin DO Other Provider Dr. Lisha Talamantes DO Referring Provider Dr. Shilpa Contreras MD Referring Provider Lorraine Mena MD Referring Provider Unavailluis Zhao DO, Dr. Arredondo Attending Provider Dr. Geronimo Downey MD Attending Provider Dr. Frankie Retana DO Referring Provider Mackenzie Iniguez Attending Provider Dr. Lorraine Mena MD Referring Provider Dr. Daija Morton MD Referring Provider Jo-Ann WATERSHannah Chamorro Attending Provider Mateo RANDALL, Referring Provider Unavaila deandre Doss SHAKER PLATE OPERATOR-C, Josefa Attending Provider Trina RANDALL, Dr. Peters Primary Care Provider Trina RANDALL, Dr. Peters Attending Provider Trina RANDALL, Dr. Peters Primary Care Provider Romario SHAKER PLATE OPERATOR-C, Josefa Attending Provider Selene RANDALL, Dr. Choe Primary Care Provider Rosa Maria RANDALL, Dr. Aguirre Attending Provider Unavaila deandre Guerin DO, Dr. Davis Referring Provider ROSA MARIA RANDALL, DR CARLA Damon Primary Care Physician [phone] MAGDALENE POWELL DO Attending Unavailable ROSA MARIA RANDALL, DR CARLA Damon Primary Care Unavailabl Lisha Uriarte Admitting Unavailable Ganta, Daija Primary Care Unavailable Albin Lisha Consulting Unavailable Celia Toribio Attending Unavailable Elton Moore Consulting Unavailable Celia Toribio Consulting Unavailable Hannah Busch Attending Unavailable [facility] Unavailable [facility], Daija Referring Unavailable Josefa Doss NP Attending Unavailable [facility] Unavailable Lisha Talamantes Attending Unavailable [facility] Primary Care Unavailable White, Shilpa L Admitting Unavailable White, Shilpa L Consulting Unavailable Albin, Lisha Consulting Unavailable Yaya Talaamntesyn Attending Unavailable [facility], Daija Primary Care Unavailable White, Shilpa L Admitting Unavailable White, Shilpa L Consulting Unavailable Albin, Lisha Admitting Unavailable Albin Lisha Consulting Unavailable Celia Toribio Attending Unavailable [facility] Primary Care Unavailable Celia Toribio Consulting Unavailable Ganta, Daija Primary Care Unavailable Roman Patel Admitting Unavailable Santiago, Paulino Attending Unavailable Adejanelle, Amir Consulting Unavailable White, Shilpa L Referring Unavailable Zha, Gogo Consulting Unavailable Ryan Vargas Consulting Unavailable Tamika Xiao Consulting Unavailable Daylin Schmitt Consulting Unavailable Roman Patel Consulting Unavailable Chrystal Collier Consulting Unavailable Luan Mcgraw Consulting Unavailable Jo Hughes Consulting Unavailable JOSETTE YANG Consulting Unavailable Angelo Wiley Consulting Unavailable Neelam Almendarez Consulting Unavailable Lisha Talamantes Consulting Unavailable White, Shilpa L Consulting Unavailable White, Shilpa L Attending Unavailable Oleghe, [facility] Primary Care Unavailable [place] Josefa RAIN Attending Unavailable Oleghe OLS, Efewongbe Referring Unavailabl e Oleghe, Efewongbe Primary Care Unavailable Oleghe OLS, Efewongbe Attending Unavailabl e Oleghe OLS, Efewongbe Attending Unavailabl e Oleghe, Efewongbe Primary Care Unavailable Gudla OLS, Carla Attending Unavailable Ganta, Daija Primary Care Unavailable Oleghe OLS, Efewongbe Attending Unavailabl e Oleghe, Efewongbe Primary Care Unavailable Ganta, Daija Primary Care Unavailable Arnulfo Zhao Attending Unavailable Oleghe, Efewongbe Primary Care Unavailable Arnulfo Zhao Attending Unavailable Oleghe OLS, Efewongbe Attending Unavailabl e Ganta, Daija Primary Care Unavailable Oleghe OLS, Efewongbe Referring Unavailabl e Oleghe OLS, Efewongbe Attending Unavailabl e Ganta, Daija Primary Care Unavailable Ganta, Daija Primary Care Unavailable Gudla Ming RAINthi Attending Unavailable Oleghe OLS, Efewongbe Referring Unavailabl e Oleghe OLS, Efewongbe Attending Unavailabl e Oleghe, Efewongbe Primary Care Unavailable Oleghe OLS, Efewongbe Attending Unavailabl e Oleghe, Efewongbe Primary Care Unavailable Gudla Ming RAINthi Attending Unavailable Ganta, Daija Primary Care Unavailable Lisha Talamantes Admitting Unavailable Lisha Talamantes Consulting Unavailable Ganta, Daija Primary Care Unavailable Brody Maynard Attending Unavailable Elton Moore Consulting Unavailable Celia Toribio Consulting Unavailable Ryan Guerin Attending Unavailable Oleghe, Efewongbe Primary Care Unavailable Frankie Galindo Consulting Unavailable Frankie Galindo Admitting Unavailable Ryan Guerin Consulting Unavailable Paulino Henderson Attending Unavailable Frankie Galindo Referring Unavailable Ganta, Daija Primary Care Unavailable White, Shilpa L Attending Unavailable White, Shilpa L Admitting Unavailable White, Shilpa L Consulting Unavailable Oleghe, Efewongbe Primary Care Unavailable T[place] SHAKER PLATE OPERATOR, Josefa Attending Unavailable Tickton SHAKER PLATE OPERATOR, Josefa Attending Unavailable Olee, Efewongbe Primary Care Unavailable Olee, Efewongbe Primary Care Unavailable Olee, Efewongbe Attending Unavailable Lisha Talamantes Attending Unavailable Catahoula, Ricardo Consulting Unavailable Hinduja, Amy Consulting Unavailable Ramirez, Mackenzie Consulting Unavailable Rolly, Thomas Consulting Unavailable Hoang, Kami Consulting Unavailable Bittar, Marco Consulting Unavailable Dumont, Noman Consulting Unavailable Gusler, Hans Consulting Unavailable Ridha, Mohamed Consulting Unavailable Zaghlouleh, Mhd Yovani Consulting UnavailHuber Luciano Consulting Unavailable Galo, Rami Consulting Unavailable Valery, Quentin Consulting Unavailable Albin, Maya Consulting Unavailable Hannarojas, Yousef Consulting Unavailable Lisha Talamantes Referring Unavailable Tickton SHAKER PLATE OPERATOR, Josefa Attending Unavailable [facility], [place] Primary Care Unavailable Olee, Efewongbe Referring [facility]available [facility] Unavailable Mackenzie Dangelo Attending Unavailable [place] SHAKER PLATE OPERATOR, Josefa Attending Unavailable [facility], [place] Primary Care Unavailable Florencioton SHAKER PLATE OPERATOR, Josefa Attending [facility]available [facility] Primary Care Unavailable Roman Patel Consulting Unavailable Jorge Roman Admitting Unavailable Roman Patel Attending Unavailable [facility] Primary Care Unavailable Ricardo Mccullough Consulting Unavailable Lisha Talamantes Attending Unavailable [facility] Primary Care Unavailable Jorge Roman Admitting Unavailable Adeli, Amir Consulting Unavailable Hinduja, Amy Consulting Unavailable Ramirez, Mackenzie Consulting Unavailable Zha, Gogo Consulting Unavailable Rolly, Thomas Consulting Unavailable Hoang, Kami Consulting Unavailable Bittar, Marco Consulting Unavailable Noman Dumont Consulting Unavailable Ryan Vargas Consulting Unavailable Tamika Xiao Consulting Unavailable Hans Rosales Consulting Unavailable Daylin Schmitt Consulting Unavailable Ridha, Mohamed Consulting Unavailable Zabandarlochaih, Mhd Yovani Consulting UnavailHuber Luciano Consulting Unavailable Galo, Rami Consulting Unavailable Valery, Quentin Consulting Unavailable Albin, Maya Consulting Unavailable Hannawi, Yousef Consulting Unavailable Jorge Roman Consulting Unavailable Lisha Talamantes Consulting Unavailable Brody Maynard Attending Unavailable Brody Maynard Consulting Unavailable Lisha Talamantes Attending Unavailable Adeli, Amir Consulting Unavailable Mosteller, Roman Admitting Unavailable Shilpa Contreras Attending Unavailable Ganta, Daija Primary Care Unavailable Gogo Gill Consulting Unavailable Ryan Vargas Consulting Unavailable Tamika Xiao Consulting Unavailable Daylin Schmitt Consulting Unavailable Roman Patel Consulting Unavailable Chrystal Collier Consulting Unavailable Luan Mcgraw Consulting Unavailable Jo Hughes Consulting Unavailable JOSETTE YANG Consulting Unavailable Angelo Wiley Consulting Unavailable Neelam Almendarez Consulting Unavailable Lisha Talamantes Consulting Unavailable Oleghe, Efewongbe Primary Care Unavailable Ryan Guerin Attending Unavailable Frankie Galindo Admitting Unavailable Frankie Galindo Consulting Unavailable Oleghe OLS, Efellebe Attending Unavailabl e Oleghe OLS, Efewongbe Referring Unavailabl e Oleghe, Efewongbe Primary Care Unavailable Oleghe OLS, Nettiebe Attending Unavailabl e Oleghe OLS, Efewongbe Referring Unavailabl e Oleghe, Efewongbe Primary Care Unavailable Oleghe Lorraine RAIN Attending Unavailabl e Oleghe, Efewongbe Primary Care Unavailable Frankie Galindo Attending Unavailable Milton Guajardo Attending Unavailable Ganta, Daija Primary Care Unavailable Ganta, Daija Primary Care Unavailable Lisha Talamantes Referring Unavailable Raul Jensen Attending Unavailable Oleghe, Efewongbe Primary Care Unavailable Frankie Retana Referring Unavailable Geronimo Downey Attending Unavailable Oleghe, Efewongbe Primary Care Unavailable Paulino Henderson Attending Unavailable Frankie Galindo Referring Unavailable Ryan Guerin Referring Unavailable Carla Davis Attending Unavailable Ganta, Daija Primary Care Unavailable Oleghe KOFFI Eflm Attending Unavailabl e Oleghe, Efewongbe Primary Care Unavailable GANTA, DAIJA Primary Care Unavailable ANJEL BRAGA Attending Unavailable OLDER ANJEL Referring Unavailable GANTA, DAIJA Primary Care Unavailable OLDER ANJEL Referring Unavailable GANTA, DAIJA Primary Care Unavailable Medications Current Medications Medication [...] Inhibitor Start: 01-08-2025 Start: 09-23-2015 End: 01-08-2025 atorvastatin 40 mg oral tabl et Dose : 40 mg = 1 tab(s), Oral, qHS, # 30 tab(s) Start Date: 03/05/16 Status: Ordered Medication Dispense Status: Completed Quantity: 30.0 Unit: tab(s) Total Allowed Fills: 1 Fills Dispensed: 0 Comment on above: Take 1 tablet by [...] 5 10/07/2021 Active Start: 09-09-2014 End: 08-22-2023 TEGretol 200 mg oral tablet Dose : 200 mg = 1 tab(s), Oral, BID Start Date: 03/05/16 Status: Ordered Medication Dispense Status: Completed Total Allowed Fills: 1 Fills Dispensed: 0 Start: 09-09-2014 End: 08-22-2023 take 1 tablet [...] Start: 08-22-2023 End: 12-24-2024 168 hr cloNIDine 0.51585 mg/ hr transdermal system (20 sources) Central [...] 22, 2023 1:00am September 02, 2024 2:54pm ergocalciferol 1.25 mg oral capsule (20 sources) Provitamin D2 Compound Start: 04-10-2024 End: 12-24-2024 famotidine 20 mg oral tablet (3 sources) Histamine-2 Receptor Antagonist Start: 03-05-2016 Pepcid 20 mg oral tablet Dose : 20 mg = 1 tab(s), Oral, BID, # 180 tab(s) Start Date: 03/05/16 Status: Ordered Medication Dispense Status: Completed Quantity: 180.0 Unit: tab(s) Total Allowed Fills: 1 Fills Dispensed: 0 finasteride 5 mg oral tablet (20 sources) 5-alpha Reductase Inhibitor Start: 11-14-2014 End: 12-24-2024 finasteride 5 mg oral tablet Dose : 5 mg = 1 tab(s), Oral, qDay, # 90 tab(s) Start Date: 03/05/16 Status: Ordered Medication Dispense Status: Completed Quantity: 90.0 Unit: tab(s) Total Allowed Fills: 1 Fills Dispensed: 0 Comment on above: Take 1 tablet by jorge th once daily. fluticasone / salmeterol (20 sources) Corticosteroid, beta2-Adrenergic Agonist Start: 03-05-2016 take 1 dose by inhalation twice daily Advair Diskus 250 mcg-50 mcg inhalation powder Dose = 1 puff(s), Inhalation, BID Start Date: 03/05/16 Status: Ordered Medication Dispense Status: Completed Total Allowed Fills: 1 Fills Dispensed: 0 Start: 03-05-2016 take 1 dose by inhal ation twice daily Advair Diskus 250 mcg-50 mcg [...] Oral, qHS Start Date: 03/05/16 Status: Ordered Medication Dispense Status: Completed Total Allowed Fills: 1 Fills Dispensed: 0 Start: 03-05-2016 take 1 tablet by jorge th once daily gabapentin 300 mg oral tablet 1 tab, Oral, Daily Start Date: 03/05/16 Status: Ordered Medication Dispense Status: Completed Total Allowed Fills: 1 Fills Dispensed: 0 Start: 01-26-2014 End: 01-20-2022 gabapentin (NEURONTIN) 300 m g capsule Take 1 capsule in the AM, 1 capsule midday and 2 capsules at bedtime 120 capsule 2 10/30/2020 02/01/2021 Discontinued take 1 capsule by mo uth three [...] mg oral tablet (10 sources) Start: 12-24-2024 mirtazapine 15 mg oral tablet (20 sources) Start: 03-05-2016 End: 12-24-2024 mirtazapine 15 mg oral tablet Dose : 15 mg = 1 tab(s), Oral, qHS, # 30 tab(s) Start Date: 03/05/16 Status: Ordered Medication Dispense Status: Completed Quantity: 30.0 Unit: tab(s) Total Allowed Fills: 1 Fills Dispensed: 0 Comment on above: Take 1 tablet by [...] on above: Take 1 capsule by mo ut twice daily for 5 days. Take 1 capsule by mo ut twice daily with meals for 7 days. omeprazole 20 mg delayed release oral capsule (3 sources) Proton Pump Inhibitor Start: 6 omeprazole 20 mg oral delayed release capsule (NF) Dose : 20 mg = 1 cap(s), Oral, BIDAC Start Date: 03/05/16 Status: Ordered Medication Dispense Status: Completed Total Allowed Fills: 1 Fills Dispensed: 0 ondansetron 8 mg oral tablet (1 source) [...] 0 Refill(s) Start Date: 05/15/18 Status: Ordered Medication Dispense Status: Completed Quantity: 255.0 Unit: g Total Allowed Fills: 1 Fills Dispensed: 0 Start: 05-15-2018 take 17 doses by jorge th twice daily MiraLax oral powder for reconstitution [...] (BD POSIFLUSH) sulfaSALAzine 500 mg oral tablet (3 sources) Aminosalicylate Start: 03-05-2016 sulfaSALAzine 500 mg oral tablet Dose : 1,000 mg = 2 tab(s), Oral, QID, # 240 tab(s) Start Date: 03/05/16 Status: Ordered Medication Dispense Status: Completed Quantity: 240.0 Unit: tab(s) Total Allowed Fills: 1 Fills Dispensed: 0 tamsulosin hydrochloride 0.4 mg oral capsule (20 sources) alpha-Adrenergic Joel Start: 01-26-2014 End: 12-24-2024 tamsulosin 0.4 mg oral capsule Dose : 0.4 mg = 1 cap(s), Oral, qDay, # 30 cap(s) Start Date: 03/05/16 Status: Ordered Medication Dispense Status: Completed Quantity: 30.0 Unit: cap(s) Total Allowed Fills: 1 Fills Dispensed: 0 Comment on above: Take 1 capsule by [facility] once daily. traMADol hydrochloride 50 mg [...] Q4H as needed for pain 14 7 March 07, 2022 February 17, 2023 11:06pm [...] mL suspension (4 sources) Start: 4 End: take 1 mL by mouth every four hours as needed Aluminum-Magnesium Hydroxide 225-200 mg/5 mL suspension Discontinued 30 mL PO EVERY 4 HOURS NEEDED August 22, 2023 1:00am April 10, 2024 11:34am aspirin 81 mg chewable tablet (20 sources) Platelet Aggregation Inhibitor, Nonsteroidal Anti-inflammatory Drug Start: End: 2 Start: 11-01-2013 End: 12-15-2013 Comment [...] unspecified emphysema type (HCC) Aerosol supplies Dx:J44.1 NPI#[id number] 1 Each 2 04/11/2018 02/02/2022 Discontinued (Duplicate Entry) Start: 04-11-2018 End: 02-02-2022 COMPOUNDED PRESCRIPTION Tamela cations: Pulmonary emphysema, unspecified emphysema type (HCC) NEBULIZER FOR HOME USE. DX: Emphysema, COPD 1 Each 3 04/11/2018 02/02/2022 Discontinued (Duplicate Entry) Start: 04-11-2018 COMPOUNDED PRE SCRIPTION Indications: Pulmonary emphysema, unspecified emphysema type (HCC) Aerosol supplies Dx:J44.1 NPI#[id number] 1 Each 2 04/11/2018 Active Start: 04-11-2018 COMPOUNDED PRE SCRIPTION Indications: Pulmonary emphysema, unspecified emphysema type (HCC) NEBULIZER FOR HOME USE. DX: Emphysema, COPD 1 Each 3 04/11/2018 Active Comment on above: Aerosol supplies Dx: J44.1 NPI#[id number] NEBULIZER FOR HOME U SE. DX: Emphysema, COPD 12 hr dextromethorphan hydrobromide 60 mg / guaiFENesin 1200 mg extended release oral tablet (20 sources) Uncompetitive Z-qriymm-E-aspartate Receptor Antagonist, Sigma-1 Agonist Start: 09-02-2024 End: [...] to affecte d area four times daily. dicyclomine hydrochloride 10 mg oral capsule (20 sources) Anticholinergic Start: 10-22-2022 End: 10-29-2022 dicyclomine 10 mg oral capsule Dose : 10 mg = 1 cap(s), Oral, QID, # 28 cap(s), 0 Refill(s) Start Date: 10/22/22 Stop Date: 10/29/22 Status: Ordered Medication Dispense Status: Completed Quantity: 28.0 Unit: cap(s) Total Allowed Fills: 1 Fills Dispensed: 0 Start: 11-13-2017 End: 08-12-2020 Start: 11-13-2017 End: 08-12-2020 take 20 mg by mouth three times daily before mealtime Dicyclomine Discontinued 20 MG PO THREE TIMES DAILY BEFORE MEALS October 25, 2019 11:04pm August 12, 2020 3:28pm Start: 03-05-2016 End: 09-13-2021 dicyclomine 20 mg oral table t Dose : 20 mg = 1 tab(s), Oral, TIDAC Start Date: 03/05/16 Status: Ordered Medication Dispense Status: Completed Total Allowed Fills: 1 Fills Dispensed: 0 Start: 11-14-2014 End: 09-29-2015 Start: 11-14-2014 End: 09-29-2015 Comment on above: Take 1 tablet by jorge three times daily with meals. docusate sodium 100 mg oral capsule (20 sources) Start: 09-29-2020 End: 09-13-2021 take 1 capsule by mouth once daily as needed for pain docusate sodium (COLACE) 100 mg capsule Indications: Compression fracture of L2 vertebra, initial encounter ([facility]) Take 1 capsule by mouth once daily as needed for Constipation. Take with pain medication 30 capsule 1 09/29/2020 09/13/2021 Discontinued Start: 03-05-2016 docusate sodiu m 100 mg oral tablet Dose : 100 mg = 1 tab(s), Oral, BID, PRN as needed for constipation, # 60 tab(s) Start Date: 03/05/16 Status: Ordered Medication Dispense Status: Completed Quantity: 60.0 Unit: tab(s) Total Allowed Fills: 1 Fills Dispensed: 0 Start: 01-26-2014 End: 09-29-2015 Start: 01-26-2014 End: 09-29-2015 take 1 capsule by mouth twice daily Docusate Sodium (Dok) 100 MG capsule Discontinued 100 mg PO TWICE A DAY January 26, 2014 12:00am September 29, 2015 12:55pm Comment on above: Take 1 capsule by mo [facility] once daily as needed for Constipation. Take with pain medication docusate sodium 50 mg / sennosides, half-way 8.6 mg oral tablet (20 sources) Start: [...] 0 Refill(s) Start Date: 06/25/18 Status: Ordered Medication Dispense Status: Completed Total Allowed Fills: 1 Fills Dispensed: 0 ertapenem 1000 mg injection (20 sources) Penem [...] 0 Refill(s) Start Date: 05/15/18 Status: Ordered Medication Dispense Status: Completed Quantity: 30.0 Unit: tab(s) Total Allowed Fills: 1 Fills Dispensed: 0 Comment on above: Take 1 tablet by jorge th daily with breakfast. 30 actuat fluticasone furoate 0.1 mg/actuat / umeclidinium 0.0625 mg/actuat / vilanterol 0.025 mg/actuat dry powder inhaler (1 source) Anticholinergic, Corticosteroid, beta2-Adrenergic Agonist Start: 03-24-2020 End: 04-05-2021 kywmvbvdcak-hflyknozy-rg lanter (TRELEGY ELLIPTA) 100-62.5-25 mcg [The details [...] 2023 11:20am take 1 tablet by jorge every twelve hours as needed guaiFENesin (HUMIBID [...] on above: Take 1 capsule by mo nhh once daily. Take 2 capsules by m [...] End: 12-07-2015 Start: 12-02-2015 End: 12-07-2015 Ipratropium [place] (Atroven t (Sp)) 12.9 GM inhaler Discontinued 2 NMA INHALATION EVERY 6 HOURS December 02, 2015 12:00am December 07, 2015 10:01am Start: 12-02-2015 End: 12-07-2015 take 1 puff(s) by inhalation every six hours Ipratropium [place] (Atrovent (Sp)) 12.9 GM inhaler Discontinued 2 [...] Refill(s), 68 Start Date: 09/29/21 Status: Ordered Medication Dispense Status: Completed Quantity: 30.0 Unit: patch(es) Total Allowed Fills: 1 Fills Dispensed: 0 Start: 10-26-2019 End: 09-13-2021 lidocaine (SALONPAS) 4 % pat ch Apply 2 Patches as directed once daily. APPLY TO: thigh (anterior and posterior) - Remove patch after 12 hours. 10/26/2019 09/13/2021 Discontinued Start: 03-05-2016 lidocaine 5% t opical patch Apply 1 patch(es), Topical, q12h, # 30 patch(es) Start Date: 03/05/16 Status: Ordered Medication Dispense Status: Completed Quantity: 30.0 Unit: patch(es) Total Allowed Fills: 1 Fills Dispensed: 0 Start: 12-07-2015 End: 12-07-2015 Comment on above: [...] Take 1 tablet by jorge once daily. lovastatin 20 mg oral tablet [...] release oral tablet (20 sources) Aminosalicylate Start: 4 End: 4 metoprolol tartrate 25 mg oral tablet (20 sources) beta-Adrenergic Joel Start: 3 End: take 1 tablet by mouth twice daily metoprolol tartrate, short acting, (LOPRESSOR) 25 mg tablet Indications: Coronary artery disease involving [place] coronary artery of [place] heart without angina pectoris Take 1 tablet [...] 11 10/19/2020 09/13/2021 Discontinued Start: 03-05-2016 End: 01-03-2025 Start: 03-05-2016 End: 01-14-2022 take 1 tablet [...] once daily. take one tablet by m out every day sertraline 100 mg oral table [...] Oral, qHS Start Date: 03/05/16 Status: Ordered Medication Dispense Status: Completed Total Allowed Fills: 1 Fills Dispensed: 0 Start: 12-02-2015 End: 07-30-2023 Start: 12-02-2015 End: 07-30-2023 Comment on above: Take 1 tablet by jorge th once daily. tiotropium 0.018 mg inhalation powder (20 sources) Anticholinergic Start: 12-02-2015 End: 12-07-2015 Start: 12-02-2015 End: 12-07-2015 Tiotropium [place] (Spiriva 18 Mcg) 1 PUFF inhaler Discontinued 1 NMA INHALATION DAILY December 02, 2015 12:00am December 07, 2015 10:02am Start: 12-02-2015 End: 12-07-2015 Start: 12-02-2015 End: 12-07-2015 take 1 puff(s) by inhalation once daily Tiotropium [place] (Spiriva 18 Mcg) 1 PUFF inhaler Discontinued 1 PUFF INHALATION DAILY December 01, 2015 11:00pm December 07, 2015 9:02am Start: 01-26-2014 End: 09-29-2015 Start: 01-26-2014 End: 09-29-2015 take 1 puff(s) by inhalation once daily Tiotropium [place] (Spiriva With Handihaler) 1 PUFF inhaler Discontinued 1 NMA INHALATION DAILY January 26, 2014 12:00am September 29, 2015 1:10pm Start: 01-26-2014 End: 09-29-2015 Start: 01-26-2014 End: 09-29-2015 take 1 puff(s) by inhalation once daily Tiotropium [place] (Spiriva With Handihaler) 1 PUFF inhaler Discontinued [...] 30, 2021 10:32am Start: 05-14-2018 End: 02-25-2020 warfarin Dose : 7.5 mg =, Or al, /Mon//Mon/Mon Start Date: 05/14/18 Status: Ordered Medication Dispense Status: Completed Total Allowed Fills: 1 Fills Dispensed: 0 Start: 03-05-2016 Coumadin Dose : 10 mg =, Oral, Monday Start Date: 03/05/16 Status: Ordered Medication Dispense Status: Completed Total Allowed Fills: 1 Fills Dispensed: 0 Start: 09-29-2015 End: 10-22-2015 Start: 09-29-2015 End: [...] 09/13/2021 Take 2 tablets by mo [facility] once daily. As dosed based on PT/INR [The details of the medication are not available because there are pending changes by a home health clinician.] 12 mg every day or a s directed Take 1 tablet by jorge once daily. With 5 MG- total 9 MG Problems Active Problems Problem Classification Problem Date Documented Da te Episodic/Chronic Acute cerebrovascular disease (20 sources) Cerebrovascular accident; [...] Coronary arteriosclerosis; Translations: [Atherosclerotic heart disease of [place] coronary artery without angina pectoris] Onset: 3 09-13-2021 Chronic Deficiency and other anemia (2 sources) Anemia; Translations: [Anemia, unspecified] Episodic Deficiency and other anemia (20 sources) Iron deficiency anemia; Translations: [Iron deficiency anemia, unspecified] 11-30-2021 Episodic Deficiency and other anemia (14 sources) Iron deficiency anemia, unspecified; Translations: [Iron deficiency anemia, unspecified] Episodic Diabetes mellitus without complication (3 sources) Diabetes mellitus 03-05-2016 Chronic Disorders of [...] sources) Hypertensive disorder; Translations: [Essential (primary) hypertension] 09-13-2021 Chronic Fracture of lower limb (20 [...] other respiratory manifestations] 07-30-2023 Episodic Mood disorders (6 sources) Bipolar I disorder; Translations: [Depressive disorder] [...] sources) Long-term current use of anticoagulant; Translations: [intermediate (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 of anticoagulants] 02-09-2019 Episodic Comment on above: On warfarin Other aftercare (1 source) Prescribed medication regimen behavior finding; Translations: [intermediate (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 of opiate analgesic] Episodic Other aftercare (20 sources) Drug therapy status; Translations: [intermediate (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 of anticoagulants] 08-18-2021 Episodic Other aftercare (20 sources) 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; Translations: [Long-term (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 of anticoagulants] Episodic Other aftercare (20 sources) Drug therapy finding; Translations: [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] 02-09-2019 Episodic [...] falls] 03-30-2023 Episodic Other connective tissue disease (7 sources) Repeated falls; Translations: [History of fall] 03-30-2023 Episodic Other connective tissue disease (13 [...] side, initial encounter for closed fracture] Onset: Episodic Other fractures (1 source) Closed fracture [...] Translations: [Unspecified injury of head, initial encounter] Onset: 5 03-29-2023 Episodic Other injuries and conditions due [...] due to external causes (1 source) Unspecified injury of head, initial encounter; Translations: [Unspecified injury of head, initial encounter] Onset: Episodic Other injuries and conditions due [...] disease (1 source) Hypoxemia; Translations: [Hypoxemia] Onset: Episodic Other nervous system disorders (1 [...] source) Acute bronchospasm; Translations: [Acute bronchospasm] Onset: Episodic Paralysis (3 sources) 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 [...] Translations: [Contusion of abdominal wall, initial encounter] Onset: 5 07-23-2020 Episodic Syncope (16 sources) Syncope; Translations: [Syncope and collapse] 04-18-2024 Episodic Unclassified (20 sources) Failure to [...] pain] Onset: 12-22-2013 Resolved: 06-08-2023 09-13-2021 Episodic Administrative/social admission (20 sources) Illiteracy; Translations: [Illiteracy [...] level monitoring] Onset: 11-19-2013 12-17-2019 Episodic Other aftercare (1 source) 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; Translations: [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] Onset: 12-24-2024 Episodic Other and unspecified benign neoplasm (20 [...] left leg] Onset: 05-02-2019 05-02-2019 Episodic Other fractures (20 sources) Compression fracture of vertebral column; Translations: [Collapsed vertebra, not elsewhere classified, site unspecified, initial encounter for fracture] Onset: 07-05-2013 Resolved: 04-23-2020 04-23-2020 Episodic Other gastrointestinal disorders (1 source) Diarrhea, unspecified; Translations: [Diarrhea, unspecified] Onset: 09-09-2024 Episodic Other gastrointestinal disorders (1 source) Other fecal abnormalities; Translations: [Loose stools] Onset: 12-12-2024 Episodic Other inflammatory condition of skin (20 sources) Erythema; Translations: [Erythematous condition, unspecified] Onset: 10-30-2013 Resolved: 02-10-2014 06-14-2021 Episodic Other lower respiratory disease (1 source) Shortness of breath; Translations: [Shortness of breath] Onset: 01-01-2025 Episodic Other lower respiratory disease (1 source) Wheezing; Translations: [Wheezing] Onset: 12-12-2024 Episodic Other nervous system disorders (20 sources) [...] FAQ page (http://www.e-imo.co m/faq/vocabportal_fa q.aspx) or contact [facility] [place] 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 This exam was performed according to our departmental dose optimization program, and includes the following measures where applicable: automated exposure control, adjustment of the mAs and/or kVp according to patient size and/or exam, and an iterative reconstruction algorithm. COMPARISON: None HISTORY: ORDERING SYSTEM PROVIDED HISTORY: Reason for Exam: fall FINDINGS: There is no intracranial hemorrhage, mass effect or abnormal extra-axial fluid collection. The finley-white differentiation is grossly maintained. Large area of encephalomalacia in the left frontoparietal lobe. There is likely a 3.3 cm arachnoid cyst with mass effect in the left temporal lobe. Scattered confluent areas of white matter hypoattenuation are noted in the cerebral white matter, nonspecific but compatible with moderate to severe chronic microvascular angiopathy. Atherosclerotic calcifications are present in the cavernous carotid arteries bilaterally. There is proportionate enlargement of the ventricular system and cortical sulci, compatible with parenchymal volume loss. The visualized portions of the orbits demonstrate no acute abnormality. Right-sided lens implant. Soft tissue swelling over the left supraorbital region with a small scalp hematoma measuring up to 0.8 cm in thickness. No acute calvarial fracture. Mucous retention cyst in the right maxillary sinus. The remainder of the included paranasal sinuses and mastoid air cells are predominantly clear. IMPRESSION: No definite acute intracranial abnormality. Chronic and incidental findings as above. Soft tissue swelling over the left supraorbital region with a small scalp hematoma. Preliminary Report was Dictated by a Resident Interpreted by: Leyla Shook MD Preliminary Report By: Ren Tompkins Electronically signed By Leyla Shook MD Dictated Date: 03/18/2025 3:19:25 AM Prelim Date: 03/18/2025 3:24:34 AM Sign Date: 03/18/2025 4:14:48 AM Ordering Provider: MAGDALENE POWELL RP [facility] CT MAXILLOFACIAL W/O CONTRAS Ton 03-18-2025 CT MAXILLOFACIAL W/O CONTRAST ORIGINAL EXAMINATION: CT OF THE FACE WITHOUT CONTRAST 03/18/2025 3:18 am TECHNIQUE: CT of the face was performed without the administration of intravenous contrast. Multiplanar reformatted images are provided for review. Automated exposure control, iterative reconstruction, and/or weight based adjustment of the mA/kV was utilized to reduce the radiation dose to as low as reasonably achievable. COMPARISON: None HISTORY: ORDERING SYSTEM PROVIDED HISTORY: Reason for Exam: fall FINDINGS: FACIAL BONES: The frontal sinuses, orbital sandoval, maxilla, pterygoid plates, zygomatic arches, hard palate, nasal bones and mandible are intact. The visualized portions of the temporomandibular joints are aligned. The patient is edentulous. ORBITAL CONTENTS: The globes appear intact. The extraocular muscles, optic nerve sheath complexes and lacrimal glands appear unremarkable. No retrobulbar hematoma or mass is seen. Right-sided lens implant. SINUSES: There is no evidence of acute sinusitis, such as air fluid level. Small mucous retention cyst in the right maxillary sinus. The visualized mastoid air cells are clear. SOFT TISSUES: Soft tissue swelling over the left supraorbital region with a scalp hematoma measuring up to 0.9 cm in thickness. IMPRESSION: No acute facial bone trauma. Soft tissue swelling over the left supraorbital region with a scalp hematoma. I have personally reviewed the images of this examination and agree with the resident's findings and interpretation. Interpreted by: Leyla Shook MD Preliminary Report By: Ren Tompkins Electronically signed By Leyla Shook MD Dictated Date: 03/18/2025 3:30:22 AM Prelim Date: 03/18/2025 3:35:53 AM Sign Date: 03/18/2025 4:22:40 AM Ordering Provider: MAGDALENE POWELL RP [facility] CT SPINE CERVICAL W/O CONTRA STon 03-18-2025 CT SPINE CERVICAL W/O CONTRAST ORIGINAL EXAMINATION: CT OF THE CERVICAL SPINE WITHOUT CONTRAST03/18/2025 3:16 am TECHNIQUE: CT of the cervical spine was performed without the administration of intravenous contrast. Multiplanar reformatted images are provided for review. Automated exposure control, iterative reconstruction, and/or weight based adjustment of the mA/kV was utilized to reduce the radiation dose to as low as reasonably achievable. COMPARISON: CT cervical spine 08/26/2009 HISTORY: ORDERING SYSTEM PROVIDED HISTORY: Reason for Exam: fall FINDINGS: No acute fracture or compression deformity. Exaggerated cervical lordosis may be positional in nature. Grade 1 anterolisthesis at C7-T1. Moderate multilevel degenerative changes. No severe spinal canal stenosis. Variable areas of foraminal stenosis. No aggressive osseous lesions. The prevertebral and paraspinal soft tissues demonstrate no acute abnormality. Scattered emphysematous changes and pleuroparenchymal scarring in the visualized lung apices. Partially visualized nodule in the left apex measuring up to 0.6 cm is not well evaluated on this exam. IMPRESSION: No acute fracture or traumatic malalignment. Partially visualized 0.6 cm nodule with spiculation in the left apex is not well evaluated on this exam. Nonemergent CT thorax is suggested for further evaluation. I have personally reviewed the images of this examination and agree with the resident's findings and interpretation. Interpreted by: Leyla Shook MD Preliminary Report By: Ren Tompkins Electronically signed By Leyla Shook MD Dictated Date: 03/18/2025 3:24:46 AM Prelim Date: 03/18/2025 3:30:12 AM Sign Date: 03/18/2025 4:21:10 AM Ordering Provider: MAGDALENE POWELL RP Normal [facility] Absolute lymphocyte countOrd ered By: Lorraine Mena on 02-18-2025 Lymphocytes Auto (Unsp spec) [#/Vol] 0.91 10*3/uL 0.83-4.51 [facility] Anion gap in Serum or Plasma Ordered By: Lorraine Mena on 02-18-2025 Anion gap [Moles/Vol] 12 mmol/L 5-15 [facility] Automated lymphocyte count a s percentage of total leukocytesOrdered By: Lorraine Mena on 02-18-2025 Lymphocytes/100 WBC Auto (Unsp spec) 9.9 % Low 19-41 [facility] BUN/creatinine ratioOrdered By: Lorraine Mena on 02-18-2025 Urea nitrogen/Creatinine [Mass ratio] 16.0 mg/mg 10-20 [facility] Basophil percentageOrdered B y: Lorraine Mena on 02-18-2025 Basophils/100 WBC (Bld) 0.5 % 0-1 [facility] Calculated very low density lipoprotein (VLDL) cholesterol measurementOrdered By: Lorraine Mena on 02-18-2025 Calculated very low density lipoprotein (VLDL) cholesterol measurement 17 mg/dL 5-40 [facility] Carbon dioxide, total [Moles /volume] in Central venous bloodOrdered By: ml Mena on 02-18-2025 CO2 [Moles/Vol] 26.0 mmol/L 21.0-32.0 [facility] Chloride assayOrdered By: Ledy Mena on 02-18-2025 Chloride [Moles/Vol] 99 mmol/L 98-108 [facility] Eosinophil percentageOrdered By: Lorraine Mena on 02-18-2025 Eosinophils/100 WBC (Bld) 0.4 % 0-5 [facility] Erythrocyte distribution wid th ratioOrdered By: [facility] R[facility]eth[facility] Mena on 02-18-2025 Erythrocyte distribution width (RBC) [Ratio] 16.4 % High 11.6-14.6 [facility] Erythrocyte distribution wid th standard deviationOrdered By: Roselynpen argylthao Mena on 02-18-2025 Erythrocyte distribution width (RBC) [Ratio] 51.2 fl High 35.1-43.9 [facility] Glomerular filtration rate ( GFR) estimation/1.73 sq m using serum, plasma, or whole bOrdered By: Lorraine Mena on 02-18-2025 GFR/1.73 sq M.predicted among non-blacks MDRD (S/P/Bld) [Vol rate/Area] 66 mL/min/{1.73_m2} >60 [facility] Hematocrit Auto (Bld) [Volum e fraction]Ordered By: Lorraine Mena on 02-18-2025 Hematocrit (Bld) [Volume fraction] 32.2 % Low 40-54 [facility] Hemoglobin measurementOrdere d By: Lorraine Mena on 02-18-2025 Hemoglobin (Bld) [Mass/Vol] 9.9 g/dL Low 13.0-16.5 [facility] Immature granulocytes/100 WB C Auto (Bld)Ordered By: Lorraine Mena on 02-18-2025 Immature granulocytes/100 WBC (Bld) 0.500 % 0.0-0.9 [facility] LDL calc ser/plasOrdered By: Ledyroelorri Mena on 02-18-2025 Cholesterol in LDL [Mass/Vol] 61 mg/dL [facility] MCV (mean corpuscular volume ) determinationOrdered By: ml Almonteemi on 02-18-2025 MCV (RBC) [Entitic vol] 85.6 fL 80-94 [facility] Mean corpuscular hemoglobin (MCH) determinationOrdered By: Lorraine Mena on 02-18-2025 MCH (RBC) [Entitic mass] 26.3 pg Low 27.0-32.0 [facility] Monocyte percentageOrdered B y: Lorraine Almonteemi on 02-18-2025 Monocytes/100 WBC (Bld) 5.9 % 0-10 [facility] Neutrophil percentageOrdered By: ml Mena on 02-18-2025 Neutrophils/100 WBC (Bld) 82.8 % High 47-70 [facility] Platelet countOrdered By: Ledy Mena on 02-18-2025 Platelets (Bld) [#/Vol] 454 10*3/uL High 150-450 [facility] Potassium measurement (mass/ volume)Ordered By: Ledyroelorri Emmettbandaremi on 02-18-2025 Potassium (Unsp spec) [Mass/Vol] 4.0 mmol/L 3.3-5.1 [facility] RBC Auto (Bld) [#/Vol]Ordere d By: Lorraine Mena on 02-18-2025 RBC (Bld) [#/Vol] 3.76 10*6/uL Low 4.6-6.2 [facility] Serum creatinine measurement (mass/volume)Ordered By: Nettiethao Christinebandaremi on 02-18-2025 Creatinine [Mass/Vol] 1.16 mg/dL 0.70-1.20 [facility] Serum glucose measurement (m ass/volume)Ordered By: Lorraine Mena on 02-18-2025 Glucose [Mass/Vol] 112 mg/dL High 70-99 [facility] Serum or plasma calcium luis urement (mass/volume)Ordered By: Lorraine Mena on 02-18-2025 Calcium [Mass/Vol] 9.5 mg/dL 7.6-11.0 [facility] Serum or plasma cholesterol in HDL measurement (mass/volume)Ordered By: Lorraine Mena on 02-18-2025 Cholesterol in HDL [Mass/Vol] 96 mg/dL >40 [facility] Serum or plasma cholesterol measurement (mass/volume)Ordered By: Lorraine Mena on 02-18-2025 Cholesterol [Mass/Vol] 174 mg/dL <201 [facility] Serum or plasma urea nitroge n measurement (mass/volume)Ordered By: Lorraine Mena on 02-18-2025 Urea nitrogen [Mass/Vol] 19 mg/dL 4-19 [facility] Sodium levelOrdered By: Roselyn Mena on 02-18-2025 Sodium [Moles/Vol] 137 mmol/L 133-145 [facility] White blood cell (WBC) count Ordered By: Lorraine Mena on 02-18-2025 WBC (Bld) [#/Vol] 9.2 10*3/uL 4.4-11.0 [facility] Absolute lymphocyte countOrd ered By: Lorraine Mena on 02-11-2025 Lymphocytes Auto (Unsp spec) [#/Vol] 1.18 10*3/uL 0.83-4.51 [facility] Anion gap in Serum or Plasma Ordered By: Lorraine Mena on 02-11-2025 Anion gap [Moles/Vol] 11 mmol/L 5-15 [facility] Automated lymphocyte count a s percentage of total leukocytesOrdered By: Lorraine Mena on 02-11-2025 Lymphocytes/100 WBC Auto (Unsp spec) 16.0 % Low 19-41 [facility] BUN/creatinine ratioOrdered By: Lorraine Mena on 02-11-2025 Urea nitrogen/Creatinine [Mass ratio] 23.5 mg/mg High 10-20 [facility] Basophil percentageOrdered B y: Lorraine Christinebandaremi on 02-11-2025 Basophils/100 WBC (Bld) 0.7 % 0-1 [facility] Calculated very low density lipoprotein (VLDL) cholesterol measurementOrdered By: Lorraine Mena on 02-11-2025 Calculated very low density lipoprotein (VLDL) cholesterol measurement 19 mg/dL 5-40 [facility] Carbon dioxide, total [Moles /volume] in Central venous bloodOrdered By: Lorraine Mena on 02-11-2025 CO2 [Moles/Vol] 26.3 mmol/L 21.0-32.0 [facility] Chloride assayOrdered By: Ledy Mena on 02-11-2025 Chloride [Moles/Vol] 101 mmol/L 98-108 [facility] Eosinophil percentageOrdered By: Lorraine Mena on 02-11-2025 Eosinophils/100 WBC (Bld) 0.9 % 0-5 [facility] Erythrocyte distribution wid th ratioOrdered By: Lorraine Mena on 02-11-2025 Erythrocyte distribution width (RBC) [Ratio] 16.5 % High 11.6-14.6 [facility] Erythrocyte distribution wid th standard deviationOrdered By: Lorraine Mena on 02-11-2025 Erythrocyte distribution width (RBC) [Ratio] 51.8 fl High 35.1-43.9 [facility] Glomerular filtration rate ( GFR) estimation/1.73 sq m using serum, plasma, or whole bOrdered By: Lorraine Mena on 02-11-2025 GFR/1.73 sq M.predicted among non-blacks MDRD (S/P/Bld) [Vol rate/Area] 72 mL/min/{1.73_m2} >60 [facility] Hematocrit Auto (Bld) [Volum e fraction]Ordered By: Lorraine Mena on 02-11-2025 Hematocrit (Bld) [Volume fraction] 31.3 % Low 40-54 [facility] Hemoglobin measurementOrdere d By: Lorraine Mena on 02-11-2025 Hemoglobin (Bld) [Mass/Vol] 10.0 g/dL Low 13.0-16.5 [facility] Immature granulocytes/100 WB C Auto (Bld)Ordered By: Lorraine Mena on 02-11-2025 Immature granulocytes/100 WBC (Bld) 0.400 % 0.0-0.9 [facility] LDL calc ser/plasOrdered By: Lorraine Mena on 02-11-2025 Cholesterol in LDL [Mass/Vol] 56 mg/dL [facility] MCV (mean corpuscular volume ) determinationOrdered By: ml Mena on 02-11-2025 MCV (RBC) [Entitic vol] 86.5 fL 80-94 [facility] Mean corpuscular hemoglobin (MCH) determinationOrdered By: roepen argylthao Mena on 02-11-2025 MCH (RBC) [Entitic mass] 27.6 pg 27.0-32.0 [facility] Monocyte percentageOrdered B y: Lorraine Mena on 02-11-2025 Monocytes/100 WBC (Bld) 9.3 % 0-10 [facility] Neutrophil percentageOrdered By: roepen argylthao Mena on 02-11-2025 Neutrophils/100 WBC (Bld) 72.7 % High 47-70 [facility] Platelet countOrdered By: Ledy Mena on 02-11-2025 Platelets (Bld) [#/Vol] 457 10*3/uL High 150-450 [facility] Potassium measurement (mass/ volume)Ordered By: Lroraine Almonteemi on 02-11-2025 Potassium (Unsp spec) [Mass/Vol] 4.3 mmol/L 3.3-5.1 [facility] RBC Auto (Bld) [#/Vol]Ordere d By: Lorraine Mena on 02-11-2025 RBC (Bld) [#/Vol] 3.62 10*6/uL Low 4.6-6.2 [facility] Serum creatinine measurement (mass/volume)Ordered By: Lorraine Almonteemi on 02-11-2025 Creatinine [Mass/Vol] 1.07 mg/dL 0.70-1.20 [facility] Serum glucose measurement (m ass/volume)Ordered By: Lorraine Mena on 02-11-2025 Glucose [Mass/Vol] 78 mg/dL 70-99 [facility] Serum or plasma calcium luis urement (mass/volume)Ordered By: Lorraine Mena on 02-11-2025 Calcium [Mass/Vol] 9.6 mg/dL 7.6-11.0 [facility] Serum or plasma cholesterol in HDL measurement (mass/volume)Ordered By: Lorraine Mena on 02-11-2025 Cholesterol in HDL [Mass/Vol] 98 mg/dL >40 [facility] Serum or plasma cholesterol measurement (mass/volume)Ordered By: Lorraine Mena on 02-11-2025 Cholesterol [Mass/Vol] 173 mg/dL <201 [facility] Serum or plasma urea nitroge n measurement (mass/volume)Ordered By: Lorraine Mena on 02-11-2025 Urea nitrogen [Mass/Vol] 25 mg/dL High 4-19 [facility] Sodium levelOrdered By: Roselyn gauthierdaphney Trina on 02-11-2025 Sodium [Moles/Vol] 138 mmol/L 133-145 [facility] White blood cell (WBC) count Ordered By: Lorraine Mena on 02-11-2025 WBC (Bld) [#/Vol] 7.4 10*3/uL 4.4-11.0 [facility] Urine Legionella pneumophila antigen detectionOrdered By: Lorraine Mena on 02-09-2025 L. pneumophila Ag Ql (U) [facility] Absolute lymphocyte countOrd ered By: Lorraine Mena on 02-03-2025 Lymphocytes Auto (Unsp spec) [#/Vol] 1.05 10*3/uL 0.83-4.51 [facility] Anion gap in Serum or Plasma Ordered By: Lorraine Mena on 02-03-2025 Anion gap [Moles/Vol] 11 mmol/L 5-15 [facility] Automated lymphocyte count a s percentage of total leukocytesOrdered By: Lorraine Mena on 02-03-2025 Lymphocytes/100 WBC Auto (Unsp spec) 13.9 % Low 19-41 [facility] BUN/creatinine ratioOrdered By: Lorraine Mena on 02-03-2025 Urea nitrogen/Creatinine [Mass ratio] 20.3 mg/mg High 10-20 [facility] Basophil percentageOrdered B y: Lorraine Mena on 02-03-2025 Basophils/100 WBC (Bld) 0.8 % 0-1 [facility] Calculated very low density lipoprotein (VLDL) cholesterol measurementOrdered By: Lorraine Mena on 02-03-2025 Calculated very low density lipoprotein (VLDL) cholesterol measurement 25 mg/dL 5-40 [facility] Carbon dioxide, total [Moles /volume] in Central venous bloodOrdered By: Lorraine Mena on 02-03-2025 CO2 [Moles/Vol] 26.5 mmol/L 21.0-32.0 [facility] Chloride assayOrdered By: Ledy Mena on 02-03-2025 Chloride [Moles/Vol] 99 mmol/L 98-108 [facility] Eosinophil percentageOrdered By: Lorraine Mena on 02-03-2025 Eosinophils/100 WBC (Bld) 1.2 % 0-5 [facility] Erythrocyte distribution wid th ratioOrdered By: Lorraine Mena on 02-03-2025 Erythrocyte distribution width (RBC) [Ratio] 16.4 % High 11.6-14.6 [facility] Erythrocyte distribution wid th standard deviationOrdered By: Lorraine Mena on 02-03-2025 Erythrocyte distribution width (RBC) [Ratio] 52.5 fl High 35.1-43.9 [facility] Glomerular filtration rate ( GFR) estimation/1.73 sq m using serum, plasma, or whole bOrdered By: Lorraine Mena on 02-03-2025 GFR/1.73 sq M.predicted among non-blacks MDRD (S/P/Bld) [Vol rate/Area] 66 mL/min/{1.73_m2} >60 [facility] Hematocrit Auto (Bld) [Volum e fraction]Ordered By: Lorraine Mena on 02-03-2025 Hematocrit (Bld) [Volume fraction] 32.1 % Low 40-54 [facility] Hemoglobin measurementOrdere d By: Lorraine Mena on 02-03-2025 Hemoglobin (Bld) [Mass/Vol] 9.9 g/dL Low 13.0-16.5 [facility] Immature granulocytes/100 WB C Auto (Bld)Ordered By: Lorraine Mena on 02-03-2025 Immature granulocytes/100 WBC (Bld) 0.500 % 0.0-0.9 [facility] LDL calc ser/plasOrdered By: roepen argylthao Mena on 02-03-2025 Cholesterol in LDL [Mass/Vol] 46 mg/dL [facility] MCV (mean corpuscular volume ) determinationOrdered By: Lorraine Mena on 02-03-2025 MCV (RBC) [Entitic vol] 87.2 fL 80-94 [facility] Mean corpuscular hemoglobin (MCH) determinationOrdered By: Lorraine Mena on 02-03-2025 MCH (RBC) [Entitic mass] 26.9 pg Low 27.0-32.0 [facility] Monocyte percentageOrdered B y: Lorraine Mena on 02-03-2025 Monocytes/100 WBC (Bld) 7.4 % 0-10 [facility] Neutrophil percentageOrdered By: Lorraine Mena on 02-03-2025 Neutrophils/100 WBC (Bld) 76.2 % High 47-70 [facility] Platelet countOrdered By: Ledy Mena on 02-03-2025 Platelets (Bld) [#/Vol] 423 10*3/uL 150-450 [facility] Potassium measurement (mass/ volume)Ordered By: Lorraine Mena on 02-03-2025 Potassium (Unsp spec) [Mass/Vol] 3.9 mmol/L 3.3-5.1 [facility] RBC Auto (Bld) [#/Vol]Ordere d By: Lorraine Mena on 02-03-2025 RBC (Bld) [#/Vol] 3.68 10*6/uL Low 4.6-6.2 [facility] Serum creatinine measurement (mass/volume)Ordered By: Lorraine Mena on 02-03-2025 Creatinine [Mass/Vol] 1.15 mg/dL 0.70-1.20 [facility] Serum glucose measurement (m ass/volume)Ordered By: Lorraine Mena on 02-03-2025 Glucose [Mass/Vol] 91 mg/dL 70-99 [facility] Serum or plasma calcium luis urement (mass/volume)Ordered By: Lorraine Mena on 02-03-2025 Calcium [Mass/Vol] 9.0 mg/dL 7.6-11.0 [facility] Serum or plasma cholesterol in HDL measurement (mass/volume)Ordered By: Lorraine Mena on 02-03-2025 Cholesterol in HDL [Mass/Vol] 88 mg/dL >40 [facility] Serum or plasma cholesterol measurement (mass/volume)Ordered By: Lorraine Mena on 02-03-2025 Cholesterol [Mass/Vol] 159 mg/dL <201 [facility] Serum or plasma urea nitroge n measurement (mass/volume)Ordered By: Lorraine Mena on 02-03-2025 Urea nitrogen [Mass/Vol] 23 mg/dL High 4-19 [facility] Sodium levelOrdered By: Roselyn gauthierdaphney Trina on 02-03-2025 Sodium [Moles/Vol] 136 mmol/L 133-145 [facility] White blood cell (WBC) count Ordered By: Lorraine Mena on 02-03-2025 WBC (Bld) [#/Vol] 7.5 10*3/uL 4.4-11.0 [facility] Absolute lymphocyte countOrd ered By: Lorraine Mena on 01-27-2025 Lymphocytes Auto (Unsp spec) [#/Vol] 1.04 10*3/uL 0.83-4.51 [facility] Anion gap in Serum or Plasma Ordered By: Lorraine Mena on 01-27-2025 Anion gap [Moles/Vol] 12 mmol/L 5-15 [facility] Automated lymphocyte count a s percentage of total leukocytesOrdered By: Lorraine Mena on 01-27-2025 Lymphocytes/100 WBC Auto (Unsp spec) 14.3 % Low 19-41 [facility] BUN/creatinine ratioOrdered By: Lorraine Mena on 01-27-2025 Urea nitrogen/Creatinine [Mass ratio] 23.2 mg/mg High 10-20 [facility] Basophil percentageOrdered B y: Lorraine Mena on 01-27-2025 Basophils/100 WBC (Bld) 0.7 % 0-1 [facility] Calculated very low density lipoprotein (VLDL) cholesterol measurementOrdered By: Lorraine Mena on 01-27-2025 Calculated very low density lipoprotein (VLDL) cholesterol measurement 17 mg/dL 5-40 [facility] Carbon dioxide, total [Moles /volume] in Central venous bloodOrdered By: Lorraine Mena on 01-27-2025 CO2 [Moles/Vol] 26.9 mmol/L 21.0-32.0 [facility] Chloride assayOrdered By: Ledy Mena on 01-27-2025 Chloride [Moles/Vol] 96 mmol/L Low 98-108 [facility] Eosinophil percentageOrdered By: Lorraine Mena on 01-27-2025 Eosinophils/100 WBC (Bld) 1.0 % 0-5 [facility] Erythrocyte distribution wid th ratioOrdered By: Lorraine Mena on 01-27-2025 Erythrocyte distribution width (RBC) [Ratio] 16.7 % High 11.6-14.6 [facility] Erythrocyte distribution wid th standard deviationOrdered By: Lorraine Mena on 01-27-2025 Erythrocyte distribution width (RBC) [Ratio] 53.6 fl High 35.1-43.9 [facility] Glomerular filtration rate ( GFR) estimation/1.73 sq m using serum, plasma, or whole bOrdered By: Lorraine Mena on 01-27-2025 GFR/1.73 sq M.predicted among non-blacks MDRD (S/P/Bld) [Vol rate/Area] 60 mL/min/{1.73_m2} >60 [facility] Hematocrit Auto (Bld) [Volum e fraction]Ordered By: Lorraine Mena on 01-27-2025 Hematocrit (Bld) [Volume fraction] 31.2 % Low 40-54 [facility] Hemoglobin measurementOrdere d By: Lorraine Mena on 01-27-2025 Hemoglobin (Bld) [Mass/Vol] 9.5 g/dL Low 13.0-16.5 [facility] Immature granulocytes/100 WB C Auto (Bld)Ordered By: Ledyroelisathao Christinebandaremi on 01-27-2025 Immature granulocytes/100 WBC (Bld) 0.600 % 0.0-0.9 [facility] LDL calc ser/plasOrdered By: roepen argylthao Christinebandaremi on 01-27-2025 Cholesterol in LDL [Mass/Vol] 64 mg/dL [facility] MCV (mean corpuscular volume ) determinationOrdered By: Ledyroelorri Emmettbandaremi on 01-27-2025 MCV (RBC) [Entitic vol] 88.4 fL 80-94 [facility] Mean corpuscular hemoglobin (MCH) determinationOrdered By: Ledyml Christinebandaremi on 01-27-2025 MCH (RBC) [Entitic mass] 26.9 pg Low 27.0-32.0 [facility] Monocyte percentageOrdered B y: Lorraine Mena on 01-27-2025 Monocytes/100 WBC (Bld) 7.6 % 0-10 [facility] Neutrophil percentageOrdered By: roepen argylthao Emmettalex on 01-27-2025 Neutrophils/100 WBC (Bld) 75.8 % High 47-70 [facility] Platelet countOrdered By: ml Emmettbandaremi on 01-27-2025 Platelets (Bld) [#/Vol] 413 10*3/uL 150-450 [facility] Potassium measurement (mass/ volume)Ordered By: Ledyroelisathao Christinebandaremi on 01-27-2025 Potassium (Unsp spec) [Mass/Vol] 4.4 mmol/L 3.3-5.1 [facility] RBC Auto (Bld) [#/Vol]Ordere d By: Lorraine Mena on 01-27-2025 RBC (Bld) [#/Vol] 3.53 10*6/uL Low 4.6-6.2 [facility] Serum creatinine measurement (mass/volume)Ordered By: Lorraine Mena on 01-27-2025 Creatinine [Mass/Vol] 1.25 mg/dL High 0.70-1.20 [facility] Serum glucose measurement (m ass/volume)Ordered By: Lorraine Mena on 01-27-2025 Glucose [Mass/Vol] 86 mg/dL 70-99 [facility] Serum or plasma calcium luis urement (mass/volume)Ordered By: Lorraine Mena on 01-27-2025 Calcium [Mass/Vol] 9.5 mg/dL 7.6-11.0 [facility] Serum or plasma cholesterol in HDL measurement (mass/volume)Ordered By: Lorraine Mena on 01-27-2025 Cholesterol in HDL [Mass/Vol] 81 mg/dL >40 [facility] Serum or plasma cholesterol measurement (mass/volume)Ordered By: Lorraine Mena on 01-27-2025 Cholesterol [Mass/Vol] 161 mg/dL <201 [facility] Serum or plasma urea nitroge n measurement (mass/volume)Ordered By: Lorraine Mena on 01-27-2025 Urea nitrogen [Mass/Vol] 29 mg/dL High 4-19 [facility] Sodium levelOrdered By: Roselyn Mena on 01-27-2025 Sodium [Moles/Vol] 135 mmol/L 133-145 [facility] White blood cell (WBC) count Ordered By: Lorraine Mena on 01-27-2025 WBC (Bld) [#/Vol] 7.3 10*3/uL 4.4-11.0 [facility] Absolute lymphocyte countOrd ered By: Lorraine Mena on 01-20-2025 Lymphocytes Auto (Unsp spec) [#/Vol] 0.97 10*3/uL 0.83-4.51 [facility] Anion gap in Serum or Plasma Ordered By: Lorraine Mena on 01-20-2025 Anion gap [Moles/Vol] 13 mmol/L 5-15 [facility] Automated lymphocyte count a s percentage of total leukocytesOrdered By: Lorraine Mena on 01-20-2025 Lymphocytes/100 WBC Auto (Unsp spec) 14.9 % Low 19-41 [facility] BUN/creatinine ratioOrdered By: Lorraine Mena on 01-20-2025 Urea nitrogen/Creatinine [Mass ratio] 20.4 mg/mg High 10-20 [facility] Basophil percentageOrdered B y: Lorraine Mena on 01-20-2025 Basophils/100 WBC (Bld) 0.6 % 0-1 [facility] Calculated very low density lipoprotein (VLDL) cholesterol measurementOrdered By: Lorraine Mena on 01-20-2025 Calculated very low density lipoprotein (VLDL) cholesterol measurement 16 mg/dL 5-40 [facility] Carbon dioxide, total [Moles /volume] in Central venous bloodOrdered By: Lorraine Mena on 01-20-2025 CO2 [Moles/Vol] 26.0 mmol/L 21.0-32.0 [facility] Chloride assayOrdered By: Ledy Mena on 01-20-2025 Chloride [Moles/Vol] 99 mmol/L 98-108 [facility] Eosinophil percentageOrdered By: Lorraine Mena on 01-20-2025 Eosinophils/100 WBC (Bld) 0.9 % 0-5 [facility] Erythrocyte distribution wid th ratioOrdered By: Lorraine Mena on 01-20-2025 Erythrocyte distribution width (RBC) [Ratio] 16.6 % High 11.6-14.6 [facility] Erythrocyte distribution wid th standard deviationOrdered By: Lorraine Mena on 01-20-2025 Erythrocyte distribution width (RBC) [Ratio] 54.0 fl High 35.1-43.9 [facility] Glomerular filtration rate ( GFR) estimation/1.73 sq m using serum, plasma, or whole bOrdered By: Lorraine Mena on 01-20-2025 GFR/1.73 sq M.predicted among non-blacks MDRD (S/P/Bld) [Vol rate/Area] 62 mL/min/{1.73_m2} >60 [facility] Hematocrit Auto (Bld) [Volum e fraction]Ordered By: Lorraine Mena on 01-20-2025 Hematocrit (Bld) [Volume fraction] 30.5 % Low 40-54 [facility] Hemoglobin measurementOrdere d By: Ledyroelisathao Chritsinebandaremi on 01-20-2025 Hemoglobin (Bld) [Mass/Vol] 9.4 g/dL Low 13.0-16.5 [facility] Immature granulocytes/100 WB C Auto (Bld)Ordered By: Lorraine Mena on 01-20-2025 Immature granulocytes/100 WBC (Bld) 0.500 % 0.0-0.9 [facility] LDL calc ser/plasOrdered By: roepen argylthao Mena on 01-20-2025 Cholesterol in LDL [Mass/Vol] 45 mg/dL [facility] MCV (mean corpuscular volume ) determinationOrdered By: Roselynpen argylthao Mena on 01-20-2025 MCV (RBC) [Entitic vol] 88.9 fL 80-94 [facility] Mean corpuscular hemoglobin (MCH) determinationOrdered By: Lorraine Mena on 01-20-2025 MCH (RBC) [Entitic mass] 27.4 pg 27.0-32.0 [facility] Monocyte percentageOrdered B y: Ledyroelisathao Christinebandaremi on 01-20-2025 Monocytes/100 WBC (Bld) 8.2 % 0-10 [facility] Neutrophil percentageOrdered By: Lorraine Mena on 01-20-2025 Neutrophils/100 WBC (Bld) 74.9 % High 47-70 [facility] Platelet countOrdered By: Ledy ellethao Mena on 01-20-2025 Platelets (Bld) [#/Vol] 405 10*3/uL 150-450 [facility] Potassium measurement (mass/ volume)Ordered By: Ledyml Mena on 01-20-2025 Potassium (Unsp spec) [Mass/Vol] 3.7 mmol/L 3.3-5.1 [facility] RBC Auto (Bld) [#/Vol]Ordere d By: Roselynlisathao Christinebandaremi on 01-20-2025 RBC (Bld) [#/Vol] 3.43 10*6/uL Low 4.6-6.2 [facility] Serum creatinine measurement (mass/volume)Ordered By: Lorraine Mena on 01-20-2025 Creatinine [Mass/Vol] 1.21 mg/dL High 0.70-1.20 [facility] Serum glucose measurement (m ass/volume)Ordered By: Lorraine Mena on 01-20-2025 Glucose [Mass/Vol] 149 mg/dL High 70-99 [facility] Serum or plasma calcium luis urement (mass/volume)Ordered By: Lorraine Mena on 01-20-2025 Calcium [Mass/Vol] 9.4 mg/dL 7.6-11.0 [facility] Serum or plasma cholesterol in HDL measurement (mass/volume)Ordered By: Lorraine Mena on 01-20-2025 Cholesterol in HDL [Mass/Vol] 75 mg/dL >40 [facility] Serum or plasma cholesterol measurement (mass/volume)Ordered By: Lorraine Mena on 01-20-2025 Cholesterol [Mass/Vol] 136 mg/dL <201 [facility] Serum or plasma urea nitroge n measurement (mass/volume)Ordered By: Lorraine Mena on 01-20-2025 Urea nitrogen [Mass/Vol] 25 mg/dL High 4-19 [facility] Sodium levelOrdered By: Roselyn Mena on 01-20-2025 Sodium [Moles/Vol] 137 mmol/L 133-145 [facility] White blood cell (WBC) count Ordered By: Lorraine Mena on 01-20-2025 WBC (Bld) [#/Vol] 6.5 10*3/uL 4.4-11.0 [facility] Absolute lymphocyte countOrd ered By: Lorraine Mena on 01-13-2025 Lymphocytes Auto (Unsp spec) [#/Vol] 0.97 10*3/uL 0.83-4.51 [facility] Anion gap in Serum or Plasma Ordered By: Lorraine Mena on 01-13-2025 Anion gap [Moles/Vol] 11 mmol/L 5-15 [facility] Automated lymphocyte count a s percentage of total leukocytesOrdered By: Lorraine Mena on 01-13-2025 Lymphocytes/100 WBC Auto (Unsp spec) 16.5 % Low 19-41 [facility] BUN/creatinine ratioOrdered By: Lorraine Mena on 01-13-2025 Urea nitrogen/Creatinine [Mass ratio] 17.7 mg/mg 10-20 [facility] Basophil percentageOrdered B y: Lorraine Mena on 01-13-2025 Basophils/100 WBC (Bld) 0.8 % 0-1 [facility] Calculated very low density lipoprotein (VLDL) cholesterol measurementOrdered By: Lorraine Mena on 01-13-2025 Calculated very low density lipoprotein (VLDL) cholesterol measurement 34 mg/dL 5-40 [facility] Carbon dioxide, total [Moles /volume] in Central venous bloodOrdered By: Lorraine Mena on 01-13-2025 CO2 [Moles/Vol] 27.7 mmol/L 21.0-32.0 [facility] Chloride assayOrdered By: Ledy Mena on 01-13-2025 Chloride [Moles/Vol] 101 mmol/L 98-108 [facility] Eosinophil percentageOrdered By: Lorraine Mena on 01-13-2025 Eosinophils/100 WBC (Bld) 1.0 % 0-5 [facility] Erythrocyte distribution wid th ratioOrdered By: Lorraine Mena on 01-13-2025 Erythrocyte distribution width (RBC) [Ratio] 16.1 % High 11.6-14.6 [facility] Erythrocyte distribution wid th standard deviationOrdered By: Lorraine Mena on 01-13-2025 Erythrocyte distribution width (RBC) [Ratio] 51.1 fl High 35.1-43.9 [facility] Glomerular filtration rate ( GFR) estimation/1.73 sq m using serum, plasma, or whole bOrdered By: Lorraine Mena on 01-13-2025 GFR/1.73 sq M.predicted among non-blacks MDRD (S/P/Bld) [Vol rate/Area] 70 mL/min/{1.73_m2} >60 [facility] Hematocrit Auto (Bld) [Volum e fraction]Ordered By: Lorraine Emmettbandaremi on 01-13-2025 Hematocrit (Bld) [Volume fraction] 31.4 % Low 40-54 [facility] Hemoglobin measurementOrdere d By: Lorraine Mena on 01-13-2025 Hemoglobin (Bld) [Mass/Vol] 9.9 g/dL Low 13.0-16.5 [facility] Immature granulocytes/100 WB C Auto (Bld)Ordered By: Lorraine Mena on 01-13-2025 Immature granulocytes/100 WBC (Bld) 0.500 % 0.0-0.9 [facility] LDL calc ser/plasOrdered By: [facility] R[facility]eth[facility] Almonteemi on 01-13-2025 Cholesterol in LDL [Mass/Vol] 51 mg/dL [facility] MCV (mean corpuscular volume ) determinationOrdered By: roepen argylthao Emmettbandaremi on 01-13-2025 MCV (RBC) [Entitic vol] 87.7 fL 80-94 [facility] Mean corpuscular hemoglobin (MCH) determinationOrdered By: Ledyroelorri Mena on 01-13-2025 MCH (RBC) [Entitic mass] 27.7 pg 27.0-32.0 [facility] Monocyte percentageOrdered B y: Lorraine Mena on 01-13-2025 Monocytes/100 WBC (Bld) 6.8 % 0-10 [facility] Neutrophil percentageOrdered By: Lorraine Mena on 01-13-2025 Neutrophils/100 WBC (Bld) 74.4 % High 47-70 [facility] Platelet countOrdered By: Ledy Mena on 01-13-2025 Platelets (Bld) [#/Vol] 421 10*3/uL 150-450 [facility] Potassium measurement (mass/ volume)Ordered By: Lorraine Mena on 01-13-2025 Potassium (Unsp spec) [Mass/Vol] 3.8 mmol/L 3.3-5.1 [facility] RBC Auto (Bld) [#/Vol]Ordere d By: Lorraine Mena on 01-13-2025 RBC (Bld) [#/Vol] 3.58 10*6/uL Low 4.6-6.2 [facility] Serum creatinine measurement (mass/volume)Ordered By: Lorraine Mena on 01-13-2025 Creatinine [Mass/Vol] 1.10 mg/dL 0.70-1.20 [facility] Serum glucose measurement (m ass/volume)Ordered By: Lorraine Mena on 01-13-2025 Glucose [Mass/Vol] 110 mg/dL High 70-99 [facility] Serum or plasma calcium luis urement (mass/volume)Ordered By: Lorraine Mnea on 01-13-2025 Calcium [Mass/Vol] 9.2 mg/dL 7.6-11.0 [facility] Serum or plasma cholesterol in HDL measurement (mass/volume)Ordered By: Lorraine Mena on 01-13-2025 Cholesterol in HDL [Mass/Vol] 63 mg/dL >40 [facility] Serum or plasma cholesterol measurement (mass/volume)Ordered By: Lorraine Mena on 01-13-2025 Cholesterol [Mass/Vol] 147 mg/dL <201 [facility] Serum or plasma urea nitroge n measurement (mass/volume)Ordered By: Lorraine Mena on 01-13-2025 Urea nitrogen [Mass/Vol] 20 mg/dL High 4-19 [facility] Sodium levelOrdered By: Roselyn Mena on 01-13-2025 Sodium [Moles/Vol] 140 mmol/L 133-145 [facility] White blood cell (WBC) count Ordered By: Lorraine Mena on 01-13-2025 WBC (Bld) [#/Vol] 5.9 10*3/uL 4.4-11.0 [facility] Electrocardiogram reportOrde red By: Geronimo Downey on 01-07-2025 EKG study [facility] Other Phone: Absolute lymphocyte countOrd ered By: Frankie Galindo on 01-06-2025 Lymphocytes Auto (Unsp spec) [#/Vol] 0.58 10*3/uL Low 0.83-4.51 [facility] Anion gap in Serum or Plasma Ordered By: Frankie Galindo on 01-06-2025 Anion gap [Moles/Vol] 12 mmol/L 5-15 [facility] Automated lymphocyte count a s percentage of total leukocytesOrdered By: Frankie Galindo on 01-06-2025 Lymphocytes/100 WBC Auto (Unsp spec) 4.8 % Low 19-41 [facility] BUN/creatinine ratioOrdered By: Frankie Galindo on 01-06-2025 Urea nitrogen/Creatinine [Mass ratio] 14.2 mg/mg 10-20 [facility] Basophil percentageOrdered B y: Frankie Galindo on 01-06-2025 Basophils/100 WBC (Bld) 0.2 % 0-1 [facility] Carbon dioxide, total [Moles /volume] in Central venous bloodOrdered By: Frankie Galindo on 01-06-2025 CO2 [Moles/Vol] 27.9 mmol/L 21.0-32.0 [facility] Chloride assayOrdered By: Osiel Galindo on 01-06-2025 Chloride [Moles/Vol] 98 mmol/L 98-108 [facility] Eosinophil percentageOrdered By: Frankie Galindo on 01-06-2025 Eosinophils/100 WBC (Bld) 0.1 % 0-5 [facility] Erythrocyte distribution wid th ratioOrdered By: Frankie Galindo on 01-06-2025 Erythrocyte distribution width (RBC) [Ratio] 15.3 % High 11.6-14.6 [facility] Erythrocyte distribution wid th standard deviationOrdered By: Frankie Galindo on 01-06-2025 Erythrocyte distribution width (RBC) [Ratio] 49.7 fl High 35.1-43.9 [facility] Glomerular filtration rate ( GFR) estimation/1.73 sq m using serum, plasma, or whole bOrdered By: Frankie Galindo on 01-06-2025 GFR/1.73 sq M.predicted among non-blacks MDRD (S/P/Bld) [Vol rate/Area] 52 mL/min/{1.73_m2} Low >60 [facility] Hematocrit Auto (Bld) [Volum e fraction]Ordered By: Frankie Galindo on 01-06-2025 Hematocrit (Bld) [Volume fraction] 35.8 % Low 40-54 [facility] Hemoglobin measurementOrdere d By: Frankie Galindo on 01-06-2025 Hemoglobin (Bld) [Mass/Vol] 11.2 g/dL Low 13.0-16.5 [facility] Immature granulocytes/100 WB C Auto (Bld)Ordered By: Frankie Galindo on 01-06-2025 Immature granulocytes/100 WBC (Bld) 0.300 % 0.0-0.9 [facility] MCV (mean corpuscular volume ) determinationOrdered By: Frankie Galindo on 01-06-2025 MCV (RBC) [Entitic vol] 88.8 fL 80-94 [facility] Magnesium measurement (mass/ volume)Ordered By: Frankie Galindo on 01-06-2025 Magnesium (Unsp spec) [Mass/Vol] 2.1 mg/dL 1.5-2.2 [facility] Mean corpuscular hemoglobin (MCH) determinationOrdered By: Frankie Galindo on 01-06-2025 MCH (RBC) [Entitic mass] 27.8 pg 27.0-32.0 [facility] Monocyte percentageOrdered B y: Frankie Galindo on 01-06-2025 Monocytes/100 WBC (Bld) 7.0 % 0-10 [facility] Neutrophil percentageOrdered By: Frankie Galindo on 01-06-2025 Neutrophils/100 WBC (Bld) 87.6 % High 47-70 [facility] Platelet countOrdered By: Osiel Galindo on 01-06-2025 Platelets (Bld) [#/Vol] 385 10*3/uL 150-450 [facility] Potassium measurement (mass/ volume)Ordered By: Frankie Galindo on 01-06-2025 Potassium (Unsp spec) [Mass/Vol] 4.9 mmol/L 3.3-5.1 [facility] RBC Auto (Bld) [#/Vol]Ordere d By: Frankie Galindo on 01-06-2025 RBC (Bld) [#/Vol] 4.03 10*6/uL Low 4.6-6.2 [facility] Serum creatinine measurement (mass/volume)Ordered By: Frankie Galindo on 01-06-2025 Creatinine [Mass/Vol] 1.41 mg/dL High 0.70-1.20 [facility] Serum glucose measurement (m ass/volume)Ordered By: Frankie Galindo on 01-06-2025 Glucose [Mass/Vol] 111 mg/dL High 70-99 [facility] Serum or plasma calcium luis urement (mass/volume)Ordered By: Frankie Galindo on 01-06-2025 Calcium [Mass/Vol] 9.3 mg/dL 7.6-11.0 [facility] Serum or plasma urea nitroge n measurement (mass/volume)Ordered By: Frankie Galindo on 01-06-2025 Urea nitrogen [Mass/Vol] 20 mg/dL High 4-19 [facility] Sodium levelOrdered By: Matthew Galindo on 01-06-2025 Sodium [Moles/Vol] 138 mmol/L 133-145 [facility] Troponin T.cardiac [Mass/vol ume] in Serum or Plasma by High sensitivity methodOrdered By: Frankie Yi on 01-06-2025 Troponin T.cardiac High sensitivity method [Mass/Vol] 26 ng/L High <22 [facility] Troponin T.cardiac High sensitivity method [Mass/Vol] 23 ng/L High <22 [facility] White blood cell (WBC) count Ordered By: Frankie Galindo on 01-06-2025 WBC (Bld) [#/Vol] 12.0 10*3/uL High 4.4-11.0 [facility] Absolute lymphocyte countOrd ered By: Fco Monroy on 01-05-2025 Lymphocytes Auto (Unsp spec) [#/Vol] 1.45 10*3/uL 0.83-4.51 [facility] Anion gap in Serum or Plasma Ordered By: Fco Monroy on 01-05-2025 Anion gap [Moles/Vol] 14 mmol/L 5-15 [facility] Assessment of wrist artery p atency prior to arterial punctureOrdered By: Fco Monroy on 01-05-2025 Arterial patency Wrist artery --pre arterial puncture Positive [facility] Automated lymphocyte count a s percentage of total leukocytesOrdered By: Fco Monroy on 01-05-2025 Lymphocytes/100 WBC Auto (Unsp spec) 14.2 % Low 19-41 [facility] BUN/creatinine ratioOrdered By: Fco Monroy on 01-05-2025 Urea nitrogen/Creatinine [Mass ratio] 18.8 mg/mg 10- [facility] Basophil percentageOrdered B y: Fco Monroy on 01-05-2025 Basophils/100 WBC (Bld) 0.4 % 0-1 [facility] Bilirubin, totalOrdered By: Fco Monroy on 01-05-2025 Bilirubin [Mass/Vol] 0.25 mg/dL 0.00-1.30 [facility] Blood base excess determinat ionOrdered By: Fco Monroy on 01-05-2025 Base excess Calc (BldV) [Moles/Vol] 9 mmol/L High -2-2 [facility] Blood bicarbonate measuremen tOrdered By: Fco Monroy on 01-05-2025 HCO3 (Bld) [Moles/Vol] 33.0 mmol/L High 22-26 [facility] Blood cultureOrdered By: Sebastien Galindo on 01-05-2025 Bacteria identified Cx Nom (Bld) No growth in 5 days. [facility] CBC W/Diff, Automatedon 12-18 Absolute Lymph 1.45 X10 3/uL Normal 0.83-4.51 [facility] Comment on above: Performed By: #### L 100.0100, L500.4050, L503.6005 ####[facility] [address] [place], [address] Absolute Neut 7.8 X10 3/uL High 2.0-7.7 [facility] Comment on above: Performed By: #### L 100.0100, L500.4050, L503.6005 ####[facility] [address] [place], [address] Basophils/100 WBC (Bld) 0.4 % Normal 0-1 [facility] Comment on above: Performed By: #### L 100.0100, L500.4050, L503.6005 ####[facility] [address] [place], [address] Eosinophils/100 WBC (Bld) 1.2 % Normal 0-5 [facility] Comment on above: Performed By: #### L 100.0100, L500.4050, L503.6005 ####[facility] [address] [place], [address] Erythrocyte distribution width (RBC) [Ratio] 15.1 % High 11.6-14.6 [facility] Comment on above: Performed By: #### L 100.0100, L500.4050, L503.6005 ####[facility] [address] [place], [address] Hematocrit (Bld) [Volume fraction] 39.6 % Low 40-54 [facility] Comment on above: Performed By: #### L 100.0100, L500.4050, L503.6005 ####[facility] [address] [place], [address] Hemoglobin (Bld) [Mass/Vol] 12.6 g/dL Low 13.0-16.5 [facility] Comment on above: Performed By: #### L 100.0100, L500.4050, L503.6005 ####[facility] [address] [place], [address] IG% 0.500 Normal 0.0-0.9 [facility] Comment on above: Result Comment: IG% - Immature Granulocytes (promyelocytes, myelocytes andmetamyelocytes) > 1% indicates that a LEFT SHIFT is Present. Performed By: #### L 100.0100, L500.4050, L503.6005 ####[facility] [address] [place], [address] Lymphocytes/100 WBC (Bld) 14.2 % Low 19-41 [facility] Comment on above: Performed By: #### L 100.0100, L500.4050, L503.6005 ####[facility] [address] [place], [address] MCH (RBC) [Entitic mass] 27.8 pg Normal 27.0-32.0 [facility] Comment on above: Performed By: #### L 100.0100, L500.4050, L503.6005 ####[facility] [address] [place], [address] MCHC (RBC) [Mass/Vol] 31.8 g/dL Low 32-36 [facility] Comment on above: Performed By: #### L 100.0100, L500.4050, L503.6005 ####[facility] [address] [place], [address] MCV (RBC) [Entitic vol] 87.4 fL Normal 80-94 [facility] Comment on above: Performed By: #### L 100.0100, L500.4050, L503.6005 ####[facility] [address] [place], [address] Monocytes/100 WBC (Bld) 7.0 % Normal 0-10 [facility] Comment on above: Performed By: #### L 100.0100, L500.4050, L503.6005 ####[facility] [address] [place], [address] Neutrophils/100 WBC (Bld) 76.7 % High 47-70 [facility] Comment on above: Performed By: #### L 100.0100, L500.4050, L503.6005 ####[facility] [address] [place], [address] Nucleated RBC (Bld) [#/Vol] 0 10*3/uL Normal 0-5 [facility] Comment on above: Performed By: #### L 100.0100, L500.4050, L503.6005 ####[facility] [address] [place], [address] Platelet mean volume (Bld) [Entitic vol] 9.8 fL Normal 6.2-12.0 [facility] Comment on above: Performed By: #### L 100.0100, L500.4050, L503.6005 ####[facility] [address] [place], [address] Platelets (Bld) [#/Vol] 462 10*3/uL High 150-450 [facility] Comment on above: Performed By: #### L 100.0100, L500.4050, L503.6005 ####[facility] [address] [place], [address] RBC (Bld) [#/Vol] 4.53 10*6/uL Low 4.6-6.2 [facility] Comment on above: Performed By: #### L 100.0100, L500.4050, L503.6005 ####[facility] [address] [place], [address] RDW SD 48.0 fl High 35.1-43.9 [facility] Comment on above: Performed By: #### L 100.0100, L500.4050, L503.6005 ####[facility] [address] [place], [address] WBC (Bld) [#/Vol] 10.2 10*3/uL Normal 4.4-11.0 [facility] Comment on above: Performed By: #### L 100.0100, L500.4050, L503.6005 ####[facility] [address] [place], [address] Carbon dioxide, total [Moles /volume] in Central venous bloodOrdered By: Fco Monroy on 01-05-2025 CO2 [Moles/Vol] 28.4 mmol/L 21.0-32.0 [facility] Chloride assayOrdered By: Ug o Monroy on 01-05-2025 Chloride [Moles/Vol] 93 mmol/L Low 98-108 [facility] Comprehensive Metabolic Prof ilon 01-05-2025 Albumin [Mass/Vol] 4.6 g/dL Normal 3.4-4.8 [facility] Comment on above: Performed By: #### L 100.0100, L500.4050, L503.6005 ####[facility] [address] [place], [address] Albumin/Globulin [Mass ratio] 1.4 {ratio} Normal 0.9-2.4 [facility] Comment on above: Performed By: #### L 100.0100, L500.4050, L503.6005 ####[facility] [address] [place], [address] ALK PHOS 83 U/L Normal 40-129 [facility] Comment on above: Performed By: #### L 100.0100, L500.4050, L503.6005 ####[facility] [address] [place], [address] ALT [Catalytic activity/Vol] 33 U/L Normal <=46 [facility] Comment on above: Performed By: #### L 100.0100, L500.4050, L503.6005 ####[facility] [address] [place], [address] AST [Catalytic activity/Vol] 32 U/L Normal <=37 [facility] Comment on above: Result Comment: Hemo lysis present, Results??could be affected.?? Performed By: #### L 100.0100, L500.4050, L503.6005 ####[facility] [address] [place], [address] Bilirubin [Mass/Vol] 0.25 mg/dL Normal 0.00-1.30 [facility] Comment on above: Performed By: #### L 100.0100, L500.4050, L503.6005 ####[facility] [address] [place], [address] BUN/CRE 18.8 RATIO Normal 10-20 [facility] Comment on above: Performed By: #### L 100.0100, L500.4050, L503.6005 ####[facility] [address] [place], [address] Calcium [Mass/Vol] 10.3 mg/dL Normal 7.6-11.0 [facility] Comment on above: Performed By: #### L 100.0100, L500.4050, L503.6005 ####[facility] [address] [place], [address] Chloride [Moles/Vol] 93 mmol/L Low 98-108 [facility] Comment on above: Performed By: #### L 100.0100, L500.4050, L503.6005 ####[facility] [address] [place], [address] CO2 [Moles/Vol] 28.4 mmol/L Normal 21.0-32.0 [facility] Comment on above: Performed By: #### L 100.0100, L500.4050, L503.6005 ####[facility] [address] [place], [address] Creatinine [Mass/Vol] 1.25 mg/dL High 0.70-1.20 [facility] Comment on above: Performed By: #### L 100.0100, L500.4050, L503.6005 ####[facility] [address] [place], [address] ECRCL 54.46 ml/min Normal 50-250 [facility] Comment on above: Performed By: #### L 100.0100, L500.4050, L503.6005 ####[facility] [address] [place], [address] GAP 14 Normal 5-15 [facility] Comment on above: Performed By: #### L 100.0100, L500.4050, L503.6005 ####[facility] [address] [place], [address] GFR/1.73 sq M.predicted among non-blacks MDRD (S/P/Bld) [Vol rate/Area] 60 mL/min/{1.73_m2} Normal >60 [facility] Comment on above: Result Comment: mL/m in/1.73m2 CKD-EPI Creatinine Equation (2020) Performed By: #### L 100.0100, L500.4050, L503.6005 ####[facility] [address] [place], [address] Globulin (S) [Mass/Vol] 3.2 g/dL Normal 2.2-4.2 [facility] Comment on above: Performed By: #### L 100.0100, L500.4050, L503.6005 ####[facility] [address] [place], [address] Glucose [Mass/Vol] 123 mg/dL High 70-99 [facility] Comment on above: Performed By: #### L 100.0100, L500.4050, L503.6005 ####[facility] [address] [place], [address] Potassium [Moles/Vol] 4.3 mmol/L Normal 3.3-5.1 [facility] Comment on above: Result Comment: Hemo lysis present, Results??could be affected.?? Performed By: #### L 100.0100, L500.4050, L503.6005 ####[facility] [address] [place], [address] Sodium [Moles/Vol] 135 mmol/L Normal 133-145 [facility] Comment on above: Performed By: #### L 100.0100, L500.4050, L503.6005 ####[facility] [address] [place], [address] T PROT 7.8 g/dL Normal 5.9-8.4 [facility] Comment on above: Performed By: #### L 100.0100, L500.4050, L503.6005 ####[facility] [address] [place], [address] Urea nitrogen [Mass/Vol] 24 mg/dL High 4-19 [facility] Comment on above: Performed By: #### L 100.0100, L500.4050, L503.6005 ####[facility] [address] [place], [address] Eosinophil percentageOrdered By: Fco Monroy on 01-05-2025 Eosinophils/100 WBC (Bld) 1.2 % 0-5 [facility] Erythrocyte distribution wid th ratioOrdered By: Fco Monroy on 01-05-2025 Erythrocyte distribution width (RBC) [Ratio] 15.1 % High 11.6-14.6 [facility] Erythrocyte distribution wid th standard deviationOrdered By: Fco Monroy on 01-05-2025 Erythrocyte distribution width (RBC) [Ratio] 48.0 fl High 35.1-43.9 [facility] Glomerular filtration rate ( GFR) estimation/1.73 sq m using serum, plasma, or whole bOrdered By: Fco Monroy on 01-05-2025 GFR/1.73 sq M.predicted among non-blacks MDRD (S/P/Bld) [Vol rate/Area] 60 mL/min/{1.73_m2} >60 [facility] Gram stainOrdered By: Frankie Galindo on 01-05-2025 Microscopic observation Gram stain Nom (Unsp spec) [facility] Hematocrit Auto (Bld) [Volum e fraction]Ordered By: Fco Monroy on 01-05-2025 Hematocrit (Bld) [Volume fraction] 39.6 % Low 40-54 [facility] Hemoglobin measurementOrdere d By: Fco Monroy on 01-05-2025 Hemoglobin (Bld) [Mass/Vol] 12.6 g/dL Low 13.0-16.5 [facility] Immature granulocytes/100 WB C Auto (Bld)Ordered By: Fco Monroy on 01-05-2025 Immature granulocytes/100 WBC (Bld) 0.500 % 0.0-0.9 [facility] Lactic Acidon 01-05-2025 Lactate [Moles/Vol] 1.1 mmol/L Normal 0.0-2.0 [facility] Comment on above: Order Comment: Y Performed By: #### L 100.0100, L500.4050, L503.6005 ####[facility] [address] [place], [place], [address] MCV (mean corpuscular volume ) determinationOrdered By: Fco Monroy on 01-05-2025 MCV (RBC) [Entitic vol] 87.4 fL 80-94 [facility] Mean corpuscular hemoglobin (MCH) determinationOrdered By: Fco Monroy on 01-05-2025 MCH (RBC) [Entitic mass] 27.8 pg 27.0-32.0 [facility] Measurement, pHOrdered By: Tahira Monroy on 01-05-2025 pH (Unsp spec) 7.45 [pH] 7.35-7.45 [facility] Microbial respiratory cultur eOrdered By: Frankie Galindo on 01-05-2025 Microorganism identified Cx Nom (Unsp spec) Proteus mirabilis Abnormal [facility] Monocyte percentageOrdered B y: Fco Monroy on 01-05-2025 Monocytes/100 WBC (Bld) 7.0 % 0-10 [facility] Neutrophil percentageOrdered By: Fco Monroy on 01-05-2025 Neutrophils/100 WBC (Bld) 76.7 % High 47-70 [facility] No Panel InformationOrdered By: Fco Monroy on 01-05-2025 ART [facility] L Radial [facility] Not entered [facility] Cannula [facility] 32 U/L <38 [facility] Platelet countOrdered By: Kellen Monroy on 01-05-2025 Platelets (Bld) [#/Vol] 462 10*3/uL High 150-450 [facility] Potassium measurement (mass/ volume)Ordered By: Fco Monroy on 01-05-2025 Potassium (Unsp spec) [Mass/Vol] 4.3 mmol/L 3.3-5.1 [facility] RBC Auto (Bld) [#/Vol]Ordere d By: Fco Monroy on 01-05-2025 RBC (Bld) [#/Vol] 4.53 10*6/uL Low 4.6-6.2 [facility] Respiratory pathogens detect ion panel by molecular detection methodOrdered By: Frankie Galindo on 01-05-2025 Respiratory pathogens DNA and RNA panel ALEENA+probe (Resp) [facility] [id number] By: Frankie Galindo on 01-05-2025 SARS-CoV-2 (COVID-19) RNA ALEENA+probe Ql (Unsp spec) [facility] Serum creatinine measurement (mass/volume)Ordered By: Fco Monroy on 01-05-2025 Creatinine [Mass/Vol] 1.25 mg/dL High 0.70-1.20 [facility] Serum globulin measurementOr dered By: Fco Monroy on 01-05-2025 Globulin (S) [Mass/Vol] 3.2 g/dL 2.2-4.2 [facility] Serum glucose measurement (m ass/volume)Ordered By: Fco Monroy on 01-05-2025 Glucose [Mass/Vol] 123 mg/dL High 70-99 [facility] Serum or plasma alanine saul otransferase (ALT) measurementOrdered By: Fco Monroy on 01-05-2025 ALT [Catalytic activity/Vol] 33 U/L <47 [facility] Serum or plasma albumin luis urement (mass/volume)Ordered By: Fco Monroy on 01-05-2025 Albumin [Mass/Vol] 4.6 g/dL 3.4-4.8 [facility] Serum or plasma albumin/glob ulin mass ratioOrdered By: Fco Monroy on 01-05-2025 Albumin/Globulin [Mass ratio] 1.4 {ratio} 0.9-2.4 [facility] Serum or plasma alkaline kathleen sphatase measurementOrdered By: Fco Monroy on 01-05-2025 ALP [Catalytic activity/Vol] 83 U/L 40-129 [facility] Serum or plasma calcium luis urement (mass/volume)Ordered By: Fco Monroy on 01-05-2025 Calcium [Mass/Vol] 10.3 mg/dL 7.6-11.0 [facility] Serum or plasma urea nitroge n measurement (mass/volume)Ordered By: Fco Monroy on 01-05-2025 Urea nitrogen [Mass/Vol] 24 mg/dL High 4-19 [facility] Sodium levelOrdered By: Fco Monroy on 01-05-2025 Sodium [Moles/Vol] 135 mmol/L 133-145 [facility] Total carbon dioxide measure mentOrdered By: Fco Monroy on 01-05-2025 CO2 [Moles/Vol] 35 mmol/L [facility] Total proteinOrdered By: Fco Monroy on 01-05-2025 Protein [Mass/Vol] 7.8 g/dL 5.9-8.4 [facility] Troponin T.cardiac [Mass/vol ume] in Serum or Plasma by High sensitivity methodOrdered By: Frankie Yi on 01-05-2025 Troponin T.cardiac High sensitivity method [Mass/Vol] 22 ng/L <22 [facility] Urine Legionella pneumophila antigen detectionOrdered By: Frankie Galindo on 01-05-2025 L. pneumophila Ag Ql (U) [facility] White blood cell (WBC) count Ordered By: Fco Monroy on 01-05-2025 WBC (Bld) [#/Vol] 10.2 10*3/uL 4.4-11.0 [facility] Abdomen Single View (Portabl e)on 01-03-2025 Abdomen Single View (Portable) Normal [facility] Brain/Head without Contrasto n 01-03-2025 Brain/Head without Contrast Normal [facility] Emergency Department Summary on 01-03-2025 Emergency Department Summary Normal [facility] Pelvis 1 or 2 Viewson 2024 Pelvis 1 or 2 Views Normal [facility] Spine Cervical without Contr ason 01-03-2025 Spine Cervical without Contras Normal [facility] Anion gap in Serum or Plasma Ordered By: Lorraine Mena on 12-31-2024 Anion gap [Moles/Vol] 12 mmol/L 5-15 [facility] BUN/creatinine ratioOrdered By: Lorraine Mena on 12-31-2024 Urea nitrogen/Creatinine [Mass ratio] 21.5 mg/mg High 10-20 [facility] Bilirubin, totalOrdered By: Lorraine Mena on 12-31-2024 Bilirubin [Mass/Vol] 0.17 mg/dL 0.00-1.30 [facility] Carbon dioxide, total [Moles /volume] in Central venous bloodOrdered By: Lorraine Mena on 12-31-2024 CO2 [Moles/Vol] 30.5 mmol/L 21.0-32.0 [facility] Chloride assayOrdered By: Ledy Mena on 12-31-2024 Chloride [Moles/Vol] 95 mmol/L Low 98-108 [facility] Glomerular filtration rate ( GFR) estimation/1.73 sq m using serum, plasma, or whole bOrdered By: Lorraine Mena on 12-31-2024 GFR/1.73 sq M.predicted among non-blacks MDRD (S/P/Bld) [Vol rate/Area] 64 mL/min/{1.73_m2} >60 [facility] No Panel InformationOrdered By: Lorraine Mena on 12-31-2024 34 U/L <38 [facility] Potassium measurement (mass/ volume)Ordered By: Lorraine Mena on 12-31-2024 Potassium (Unsp spec) [Mass/Vol] 3.9 mmol/L 3.3-5.1 [facility] Serum creatinine measurement (mass/volume)Ordered By: Lorraine Mena on 12-31-2024 Creatinine [Mass/Vol] 1.19 mg/dL 0.70-1.20 [facility] Serum globulin measurementOr dered By: Lorraine Mena on 12-31-2024 Globulin (S) [Mass/Vol] 2.9 g/dL 2.2-4.2 [facility] Serum glucose measurement (m ass/volume)Ordered By: Lorraine Mena on 12-31-2024 Glucose [Mass/Vol] 110 mg/dL High 70-99 [facility] Serum or plasma alanine saul otransferase (ALT) measurementOrdered By: Lorraine Mena on 12-31-2024 ALT [Catalytic activity/Vol] 35 U/L <47 [facility] Serum or plasma albumin luis urement (mass/volume)Ordered By: Lorraine Mena on 12-31-2024 Albumin [Mass/Vol] 3.9 g/dL 3.4-4.8 [facility] Serum or plasma albumin/glob ulin mass ratioOrdered By: Lorraine Mena on 12-31-2024 Albumin/Globulin [Mass ratio] 1.3 {ratio} 0.9-2.4 [facility] Serum or plasma alkaline kathleen sphatase measurementOrdered By: Lorraine Mena 12-31-2024 ALP [Catalytic activity/Vol] 63 U/L 40-129 [facility] Serum or plasma calcium luis urement (mass/volume)Ordered By: Lorraine Mena on 12-31-2024 Calcium [Mass/Vol] 10.1 mg/dL 7.6-11.0 [facility] Serum or plasma urea nitroge n measurement (mass/volume)Ordered By: Lorraine Mena on 12-31-2024 Urea nitrogen [Mass/Vol] 26 mg/dL High 4-19 [facility] Sodium levelOrdered By: Roselyn Mena on 12-31-2024 Sodium [Moles/Vol] 138 mmol/L 133-145 [facility] Total proteinOrdered By: David Mena on 12-31-2024 Protein [Mass/Vol] 6.9 g/dL 5.9-8.4 [facility] Absolute lymphocyte countOrd ered By: Lorraine Mena on 12-30-2024 Lymphocytes Auto (Unsp spec) [#/Vol] 1.08 10*3/uL 0.83-4.51 [facility] Anion gap in Serum or Plasma Ordered By: Lorraine Mena on 12-30-2024 Anion gap [Moles/Vol] 17 mmol/L High 5-15 [facility] Automated lymphocyte count a s percentage of total leukocytesOrdered By: Lorraine Mena on 12-30-2024 Lymphocytes/100 WBC Auto (Unsp spec) 14.4 % Low 19-41 [facility] BUN/creatinine ratioOrdered By: Lorraine Mena on 12-30-2024 Urea nitrogen/Creatinine [Mass ratio] 20.3 mg/mg High 10-20 [facility] Basophil percentageOrdered B y: Lorraine Mena on 12-30-2024 Basophils/100 WBC (Bld) 0.7 % 0-1 [facility] Bilirubin, totalOrdered By: Lorraine Mena on 12-30-2024 Bilirubin [Mass/Vol] 0.18 mg/dL 0.00-1.30 [facility] Carbon dioxide, total [Moles /volume] in Central venous bloodOrdered By: Lorraine Mena on 12-30-2024 CO2 [Moles/Vol] 28.7 mmol/L 21.0-32.0 [facility] Chloride assayOrdered By: Ledy roelorri Mena on 12-30-2024 Chloride [Moles/Vol] 94 mmol/L Low 98-108 [facility] Eosinophil percentageOrdered By: Lorraine Christinebandaremi on 12-30-2024 Eosinophils/100 WBC (Bld) 0.8 % 0-5 [facility] Erythrocyte distribution wid th ratioOrdered By: Lorraine Mena on 12-30-2024 Erythrocyte distribution width (RBC) [Ratio] 15.0 % High 11.6-14.6 [facility] Erythrocyte distribution wid th standard deviationOrdered By: Lorraine Mena on 12-30-2024 Erythrocyte distribution width (RBC) [Ratio] 47.7 fl High 35.1-43.9 [facility] Glomerular filtration rate ( GFR) estimation/1.73 sq m using serum, plasma, or whole bOrdered By: Lorraine Mena on 12-30-2024 GFR/1.73 sq M.predicted among non-blacks MDRD (S/P/Bld) [Vol rate/Area] 64 mL/min/{1.73_m2} >60 [facility] [facility] Hemat[facility] Auto (Bld) [Volum e fraction]Ordered By: Lorraine Mena on 12-30-2024 Hematocrit (Bld) [Volume fraction] 36.1 % Low 40-54 [facility] Hemoglobin measurementOrdere d By: Lorraine Mena on 12-30-2024 Hemoglobin (Bld) [Mass/Vol] 11.3 g/dL Low 13.0-16.5 [facility] Immature granulocytes/100 WB C Auto (Bld)Ordered By: Lorraine Mena on 12-30-2024 Immature granulocytes/100 WBC (Bld) 0.300 % 0.0-0.9 [facility] MCV (mean corpuscular volume ) determinationOrdered By: Lorraine Mena on 12-30-2024 MCV (RBC) [Entitic vol] 88.3 fL 80-94 [facility] Mean corpuscular hemoglobin (MCH) determinationOrdered By: Lorraine Mena on 12-30-2024 MCH (RBC) [Entitic mass] 27.6 pg 27.0-32.0 [facility] Monocyte percentageOrdered B y: Lorraine Mena on 12-30-2024 Monocytes/100 WBC (Bld) 9.6 % 0-10 [facility] Neutrophil percentageOrdered By: Lorraine Mena on 12-30-2024 Neutrophils/100 WBC (Bld) 74.2 % High 47-70 [facility] No Panel InformationOrdered By: Lorraine Mena on 12-30-2024 34 U/L <38 [facility] Platelet countOrdered By: Ledy Mena on 12-30-2024 Platelets (Bld) [#/Vol] 353 10*3/uL 150-450 [facility] Potassium measurement (mass/ volume)Ordered By: Lorraine Mena on 12-30-2024 Potassium (Unsp spec) [Mass/Vol] 4.2 mmol/L 3.3-5.1 [facility] RBC Auto (Bld) [#/Vol]Ordere d By: Lorraine Mena on 12-30-2024 RBC (Bld) [#/Vol] 4.09 10*6/uL Low 4.6-6.2 [facility] Serum creatinine measurement (mass/volume)Ordered By: Lorraine Mena on 12-30-2024 Creatinine [Mass/Vol] 1.19 mg/dL 0.70-1.20 [facility] Serum globulin measurementOr dered By: Lorraine Mena on 12-30-2024 Globulin (S) [Mass/Vol] 2.2 g/dL 2.2-4.2 [facility] Serum glucose measurement (m ass/volume)Ordered By: Lorraine Mena on 12-30-2024 Glucose [Mass/Vol] 105 mg/dL High 70-99 [facility] Serum or plasma alanine saul otransferase (ALT) measurementOrdered By: Lorraine Mena on 12-30-2024 ALT [Catalytic activity/Vol] 34 U/L <47 [facility] Serum or plasma albumin luis urement (mass/volume)Ordered By: Lorraine Mena on 12-30-2024 Albumin [Mass/Vol] 4.0 g/dL 3.4-4.8 [facility] Serum or plasma albumin/glob ulin mass ratioOrdered By: Lorraine Mena on 12-30-2024 Albumin/Globulin [Mass ratio] 1.8 {ratio} 0.9-2.4 [facility] Serum or plasma alkaline kathleen sphatase measurementOrdered By: Lorraine Mena on 12-30-2024 ALP [Catalytic activity/Vol] 62 U/L 40-129 [facility] Serum or plasma calcium luis urement (mass/volume)Ordered By: Lorraine Mena on 12-30-2024 Calcium [Mass/Vol] 9.8 mg/dL 7.6-11.0 [facility] Serum or plasma carbamazepin e level (mass/volume)Ordered By: Lorraine Mena on 12-30-2024 carBAMazepine [Mass/Vol] 10.8 ug/mL 4.0-12.0 [facility] Serum or plasma urea nitroge n measurement (mass/volume)Ordered By: Lorraine Mena on 12-30-2024 Urea nitrogen [Mass/Vol] 24 mg/dL High 4-19 [facility] Sodium levelOrdered By: Roselyn Mena on 12-30-2024 Sodium [Moles/Vol] 140 mmol/L 133-145 [facility] Total proteinOrdered By: David Mena on 12-30-2024 Protein [Mass/Vol] 6.3 g/dL 5.9-8.4 [facility] White blood cell (WBC) count Ordered By: Lorraine Mena on 12-30-2024 WBC (Bld) [#/Vol] 7.5 10*3/uL 4.4-11.0 [facility] Absolute lymphocyte countOrd ered By: Shilpa Contreras on 12-26-2024 Lymphocytes Auto (Unsp spec) [#/Vol] 0.66 10*3/uL Low 0.83-4.51 [facility] Anion gap in Serum or Plasma Ordered By: Shilpa Contreras on 12-26-2024 Anion gap [Moles/Vol] 12 mmol/L 5-15 [facility] Automated lymphocyte count a s percentage of total leukocytesOrdered By: Shilpa Ben on 12-26-2024 Lymphocytes/100 WBC Auto (Unsp spec) 6.5 % Low 19-41 [facility] BUN/creatinine ratioOrdered By: Shilpa Ben on 12-26-2024 Urea nitrogen/Creatinine [Mass ratio] 14.4 mg/mg 10-20 [facility] Basophil percentageOrdered B y: Shilpa Ben on 12-26-2024 Basophils/100 WBC (Bld) 0.3 % 0- [facility] Bilirubin, totalOrdered By: Shilpa Ben on 12-26-2024 Bilirubin [Mass/Vol] 0.23 mg/dL 0.00-1.30 [facility] CBC W/Diff, Automatedon 12-17 Absolute Lymph 0.66 X10 3/uL Low 0.83-4.51 [facility] Comment on above: Performed By: #### L 500.4050, L100.0100 ####[facility] [address] [place], [address] Absolute Neut 8.7 X10 3/uL High 2.0-7.7 [facility] Comment on above: Performed By: #### L 500.4050, L100.0100 ####[facility] [address] [place], [address] Basophils/100 WBC (Bld) 0.3 % Normal 0-1 [facility] Comment on above: Performed By: #### L 500.4050, L100.0100 ####[facility] [address] [place], [address] Eosinophils/100 WBC (Bld) 0.2 % Normal 0-5 [facility] Comment on above: Performed By: #### L 500.4050, L100.0100 ####[facility] [address] [place], [address] Erythrocyte distribution width (RBC) [Ratio] 14.7 % High 11.6-14.6 [facility] Comment on above: Performed By: #### L 500.4050, L100.0100 ####[facility] [address] [place], [address] Hematocrit (Bld) [Volume fraction] 35.8 % Low 40-54 [facility] Comment on above: Performed By: #### L 500.4050, L100.0100 ####[facility] [address] [place], [address] Hemoglobin (Bld) [Mass/Vol] 11.3 g/dL Low 13.0-16.5 [facility] Comment on above: Performed By: #### L 500.4050, L100.0100 ####[facility] [address] [place], [address] IG% 0.500 Normal 0.0-0.9 [facility] Comment on above: Result Comment: IG% - Immature Granulocytes (promyelocytes, myelocytes andmetamyelocytes) > 1% indicates that a LEFT SHIFT is Present. Performed By: #### L 500.4050, L100.0100 ####[facility] [address] [place], [address] Lymphocytes/100 WBC (Bld) 6.5 % Low 19-41 [facility] Comment on above: Performed By: #### L 500.4050, L100.0100 ####[facility] [address] [place], [address] MCH (RBC) [Entitic mass] 27.6 pg Normal 27.0-32.0 [facility] Comment on above: Performed By: #### L 500.4050, L100.0100 ####[facility] [address] [place], [address] MCHC (RBC) [Mass/Vol] 31.6 g/dL Low 32-36 [facility] Comment on above: Performed By: #### L 500.4050, L100.0100 ####[facility] [address] [place], [address] MCV (RBC) [Entitic vol] 87.3 fL Normal 80-94 [facility] Comment on above: Performed By: #### L 500.4050, L100.0100 ####[facility] [address] [place], [address] Monocytes/100 WBC (Bld) 7.8 % Normal 0-10 [facility] Comment on above: Performed By: #### L 500.4050, L100.0100 ####[facility] [address] [place], [address] Neutrophils/100 WBC (Bld) 84.7 % High 47-70 [facility] Comment on above: Performed By: #### L 500.4050, L100.0100 ####[facility] [address] [place], [address] Nucleated RBC (Bld) [#/Vol] 0 10*3/uL Normal 0-5 [facility] Comment on above: Performed By: #### L 500.4050, L100.0100 ####[facility] [address] [place], [address] Platelet mean volume (Bld) [Entitic vol] 10.1 fL Normal 6.2-12.0 [facility] Comment on above: Performed By: #### L 500.4050, L100.0100 ####[facility] [address] [place], [address] Platelets (Bld) [#/Vol] 363 10*3/uL Normal 150-450 [facility] Comment on above: Performed By: #### L 500.4050, L100.0100 ####[facility] [address] [place], [address] RBC (Bld) [#/Vol] 4.10 10*6/uL Low 4.6-6.2 [facility] Comment on above: Performed By: #### L 500.4050, L100.0100 ####[facility] [address] [place], [address] RDW SD 46.5 fl High 35.1-43.9 [facility] Comment on above: Performed By: #### L 500.4050, L100.0100 ####[facility] [address] [place], [address] WBC (Bld) [#/Vol] 10.2 10*3/uL Normal 4.4-11.0 [facility] Comment on above: Performed By: #### L 500.4050, L100.0100 ####[facility] [address] [place], [address] Carbon dioxide, total [Moles /volume] in Central venous bloodOrdered By: Shilpa Ben on 12-26-2024 CO2 [Moles/Vol] 30.3 mmol/L 21.0-32.0 [facility] Chloride assayOrdered By: Kisha solares Ben on 12-26-2024 Chloride [Moles/Vol] 98 mmol/L 98-108 [facility] Comprehensive Metabolic Prof ilon 12-26-2024 Albumin [Mass/Vol] 3.7 g/dL Normal 3.4-4.8 [facility] Comment on above: Performed By: #### L 500.4050, L100.0100 ####[facility] [address] [place], [address] Albumin/Globulin [Mass ratio] 1.6 {ratio} Normal 0.9-2.4 [facility] Comment on above: Performed By: #### L 500.4050, L100.0100 ####[facility] [address] [place], [address] ALK PHOS 67 U/L Normal 40-129 [facility] Comment on above: Performed By: #### L 500.4050, L100.0100 ####[facility] [address] [place], [address] ALT [Catalytic activity/Vol] 19 U/L Normal <=46 [facility] Comment on above: Performed By: #### L 500.4050, L100.0100 ####[facility] [address] [place], [address] AST [Catalytic activity/Vol] 22 U/L Normal <=37 [facility] Comment on above: Performed By: #### L 500.4050, L100.0100 ####[facility] [address] [place], [address] Bilirubin [Mass/Vol] 0.23 mg/dL Normal 0.00-1.30 [facility] Comment on above: Performed By: #### L 500.4050, L100.0100 ####[facility] [address] [place], [address] BUN/CRE 14.4 RATIO Normal 10-20 [facility] Comment on above: Performed By: #### L 500.4050, L100.0100 ####[facility] [address] [place], [address] Calcium [Mass/Vol] 9.7 mg/dL Normal 7.6-11.0 [facility] Comment on above: Performed By: #### L 500.4050, L100.0100 ####[facility] [address] [place], [address] Chloride [Moles/Vol] 98 mmol/L Normal 98-108 [facility] Comment on above: Performed By: #### L 500.4050, L100.0100 ####[facility] [address] [place], [address] CO2 [Moles/Vol] 30.3 mmol/L Normal 21.0-32.0 [facility] Comment on above: Performed By: #### L 500.4050, L100.0100 ####[facility] [address] [place], [address] Creatinine [Mass/Vol] 1.07 mg/dL Normal 0.70-1.20 [facility] Comment on above: Performed By: #### L 500.4050, L100.0100 ####[facility] [address] [place], [address] ECRCL 57.71 ml/min Normal 50-250 [facility] Comment on above: Performed By: #### L 500.4050, L100.0100 ####[facility] [address] [place], [address] GAP 12 Normal 5-15 [facility] Comment on above: Performed By: #### L 500.4050, L100.0100 ####[facility] [address] [place], [address] GFR/1.73 sq M.predicted among non-blacks MDRD (S/P/Bld) [Vol rate/Area] 72 mL/min/{1.73_m2} Normal >60 [facility] Comment on above: Result Comment: mL/m in/1.73m2 CKD-EPI Creatinine Equation (2020) Performed By: #### L 500.4050, L100.0100 ####[facility] [address] [place], [address] Globulin (S) [Mass/Vol] 2.3 g/dL Normal 2.2-4.2 [facility] Comment on above: Performed By: #### L 500.4050, L100.0100 ####[facility] [address] [place], [address] Glucose [Mass/Vol] 142 mg/dL High 70-99 [facility] Comment on above: Performed By: #### L 500.4050, L100.0100 ####[facility] [address] [place], [address] Potassium [Moles/Vol] 3.4 mmol/L Normal 3.3-5.1 [facility] Comment on above: Performed By: #### L 500.4050, L100.0100 ####[facility] [address] [place], [address] Sodium [Moles/Vol] 140 mmol/L Normal 133-145 [facility] Comment on above: Performed By: #### L 500.4050, L100.0100 ####[facility] [address] [place], [address] T PROT 6.0 g/dL Normal 5.9-8.4 [facility] Comment on above: Performed By: #### L 500.4050, L100.0100 ####[facility] [address] [place], [place], [address] Urea nitrogen [Mass/Vol] 15 mg/dL Normal 4-19 [facility] Comment on above: Performed By: #### L 500.4050, L100.0100 ####[facility] [address] [place], [place], [address] Eosinophil percentageOrdered By: Shilpa Contreras on 12-26-2024 Eosinophils/100 WBC (Bld) 0.2 % 0-5 [facility] Erythrocyte distribution wid th ratioOrdered By: Ben on 12-26-2024 Erythrocyte distribution width (RBC) [Ratio] 14.7 % High 11.6-14.6 [facility] Erythrocyte distribution wid th standard deviationOrdered By: Shilpa Ben on 12-26-2024 Erythrocyte distribution width (RBC) [Ratio] 46.5 fl High 35.1-43.9 [facility] Glomerular filtration rate ( GFR) estimation/1.73 sq m using serum, plasma, or whole bOrdered By: Shilpa Ben on 12-26-2024 GFR/1.73 sq M.predicted among non-blacks [...] Immature granulocytes/100 WB C Auto (Bld)Ordered By: Shipla Ben 12-26-2024 Immature granulocytes/100 WBC (Bld) 0.500 % 0.0-0.9 [facility] MCV (mean corpuscular volume ) determinationOrdered By: Shilpa Contreras 12-26-2024 MCV (RBC) [Entitic vol] 87.3 fL 80-94 [facility] Mean corpuscular hemoglobin (MCH) determinationOrdered By: Shilpa Contreras on 12-26-2024 MCH (RBC) [Entitic mass] 27.6 pg 27.0-32.0 [facility] Monocyte percentageOrdered B y: Shilpa Contreras on 12-26-2024 Monocytes/100 WBC (Bld) 7.8 % 0-10 [facility] Neutrophil percentageOrdered By: Shilpa Ben on 12-26-2024 Neutrophils/100 WBC (Bld) 84.7 % High 47-70 [facility] No Panel InformationOrdered By: Shilpa Contreras on 12-26-2024 22 U/L <38 [facility] Platelet countOrdered By: Kisha solares Ben on 12-26-2024 Platelets (Bld) [#/Vol] 363 10*3/uL 150-450 [facility] Potassium measurement (mass/ volume)Ordered By: Shilpa Contreras on 12-26-2024 Potassium (Unsp spec) [Mass/Vol] 3.4 mmol/L 3.3-5.1 [facility] RBC Auto (Bld) [#/Vol]Ordere d By: Shilpa Contreras on 12-26-2024 RBC (Bld) [#/Vol] 4.10 10*6/uL Low 4.6-6.2 [facility] Serum creatinine measurement (mass/volume)Ordered By: Shilpa Contreras on 12-26-2024 Creatinine [Mass/Vol] 1.07 mg/dL 0.70-1.20 [facility] Serum globulin measurementOr dered By: Shilpa Contreras 12-26-2024 Globulin (S) [Mass/Vol] 2.3 g/dL 2.2-4.2 [facility] Serum glucose measurement (m ass/volume)Ordered By: Shilpa Contreras 12-26-2024 Glucose [Mass/Vol] 142 mg/dL High 70-99 [facility] Serum or plasma alanine saul otransferase (ALT) measurementOrdered By: Shilpa Contreras 12-26-2024 ALT [Catalytic activity/Vol] 19 U/L <47 [facility] Serum or plasma albumin luis urement (mass/volume)Ordered By: Shilpa Contreras on 12-26-2024 Albumin [Mass/Vol] 3.7 g/dL 3.4-4.8 [facility] Serum or plasma albumin/glob ulin mass ratioOrdered By: Shilpa Contreras on 12-26-2024 Albumin/Globulin [Mass ratio] 1.6 {ratio} 0.9-2.4 [facility] Serum or plasma alkaline kathleen sphatase measurementOrdered By: Shilpa Ben on 12-26-2024 ALP [Catalytic activity/Vol] 67 U/L 40-129 [facility] Serum or plasma calcium luis urement (mass/volume)Ordered By: Shilpa Contreras on 12-26-2024 Calcium [Mass/Vol] 9.7 mg/dL 7.6-11.0 [facility] Serum or plasma urea nitroge n measurement (mass/volume)Ordered By: Shilpa Contreras on 12-26-2024 Urea nitrogen [Mass/Vol] 15 mg/dL 4-19 [facility] Sodium levelOrdered By: Rovertou mn Ben on 12-26-2024 Sodium [Moles/Vol] 140 mmol/L 133-145 [facility] Total proteinOrdered By: Roverto umn Ben on 12-26-2024 Protein [Mass/Vol] 6.0 g/dL 5.9-8.4 [facility] White blood cell (WBC) count Ordered By: Shilpa Contreras on 12-26-2024 WBC (Bld) [#/Vol] 10.2 10*3/uL 4.4-11.0 [facility] CBC W/Diff, Automatedon 07-0 Absolute Lymph 0.96 X10 3/uL Normal 0.83-4.51 [facility] Comment on above: Performed By: #### L 501.5200, L100.0100, L500.4050 ####[facility] [address] [place], [address] Absolute Neut 9.8 X10 3/uL High 2.0-7.7 [facility] Comment on above: Performed By: #### L 501.5200, L100.0100, L500.4050 ####[facility] [address] [place], [address] Basophils/100 WBC (Bld) 0.3 % Normal 0-1 [facility] Comment on above: Performed By: #### L 501.5200, L100.0100, L500.4050 ####[facility] [address] [place], [address] Eosinophils/100 WBC (Bld) 0.3 % Normal 0-5 [facility] Comment on above: Performed By: #### L 501.5200, L100.0100, L500.4050 ####[facility] [address] [place], [address] Erythrocyte distribution width (RBC) [Ratio] 14.5 % Normal 11.6-14.6 [facility] Comment on above: Performed By: #### L 501.5200, L100.0100, L500.4050 ####[facility] [address] [place], [address] Hematocrit (Bld) [Volume fraction] 40.5 % Normal 40-54 [facility] Comment on above: Performed By: #### L 501.5200, L100.0100, L500.4050 ####[facility] [address] [place], [address] Hemoglobin (Bld) [Mass/Vol] 12.5 g/dL Low 13.0-16.5 [facility] Comment on above: Performed By: #### L 501.5200, L100.0100, L500.4050 ####[facility] [address] [place], [address] IG% 0.700 Normal 0.0-0.9 [facility] Comment on above: Result Comment: IG% - Immature Granulocytes (promyelocytes, myelocytes andmetamyelocytes) > 1% indicates that a LEFT SHIFT is Present. Performed By: #### L 501.5200, L100.0100, L500.4050 ####[facility] [address] [place], [address] Lymphocytes/100 WBC (Bld) 8.0 % Low 19-41 [facility] Comment on above: Performed By: #### L 501.5200, L100.0100, L500.4050 ####[facility] [address] [place], [address] MCH (RBC) [Entitic mass] 27.4 pg Normal 27.0-32.0 [facility] Comment on above: Performed By: #### L 501.5200, L100.0100, L500.4050 ####[facility] [address] [place], [address] MCHC (RBC) [Mass/Vol] 30.9 g/dL Low 32-36 [facility] Comment on above: Performed By: #### L 501.5200, L100.0100, L500.4050 ####[facility] [address] [place], [address] MCV (RBC) [Entitic vol] 88.6 fL Normal 80-94 [facility] Comment on above: Performed By: #### L 501.5200, L100.0100, L500.4050 ####[facility] [address] [place], [address] Monocytes/100 WBC (Bld) 8.4 % Normal 0-10 [facility] Comment on above: Performed By: #### L 501.5200, L100.0100, L500.4050 ####[facility] [address] [place], [address] Neutrophils/100 WBC (Bld) 82.3 % High 47-70 [facility] Comment on above: Performed By: #### L 501.5200, L100.0100, L500.4050 ####[facility] [address] [place], [address] Nucleated RBC (Bld) [#/Vol] 0 10*3/uL Normal 0-5 [facility] Comment on above: Performed By: #### L 501.5200, L100.0100, L500.4050 ####[facility] [address] [place], [address] Platelet mean volume (Bld) [Entitic vol] 10.2 fL Normal 6.2-12.0 [facility] Comment on above: Performed By: #### L 501.5200, L100.0100, L500.4050 ####[facility] [address] [place], [address] Platelets (Bld) [#/Vol] 449 10*3/uL Normal 150-450 [facility] Comment on above: Performed By: #### L 501.5200, L100.0100, L500.4050 ####[facility] [address] [place], [address] RBC (Bld) [#/Vol] 4.57 10*6/uL Low 4.6-6.2 [facility] Comment on above: Performed By: #### L 501.5200, L100.0100, L500.4050 ####[facility] [address] [place], [address] RDW SD 45.9 fl High 35.1-43.9 [facility] Comment on above: Performed By: #### L 501.5200, L100.0100, L500.4050 ####[facility] [address] [place], [address] WBC (Bld) [#/Vol] 12.0 10*3/uL High 4.4-11.0 [facility] Comment on above: Performed By: #### L 501.5200, L100.0100, L500.4050 ####[facility] [address] [place], [address] Comprehensive Metabolic Prof il12-25-2024 Albumin [Mass/Vol] 4.0 g/dL Normal 3.4-4.8 [facility] Comment on above: Performed By: #### L 501.5200, L100.0100, L500.4050 ####[facility] [address] [place], [address] Albumin/Globulin [Mass ratio] 1.5 {ratio} Normal 0.9-2.4 [facility] Comment on above: Performed By: #### L 501.5200, L100.0100, L500.4050 ####[facility] [address] [place], [address] ALK PHOS 74 U/L Normal 40-129 [facility] Comment on above: Performed By: #### L 501.5200, L100.0100, L500.4050 ####[facility] [facility] [address] [place], [address] ALT [Catalytic activity/Vol] 22 U/L Normal <=46 [facility] Comment on above: Performed By: #### L 501.5200, L100.0100, L500.4050 ####[facility] [address] [place], [address] AST [Catalytic activity/Vol] 31 U/L Normal <=37 [facility] Comment on above: Performed By: #### L 501.5200, L100.0100, L500.4050 ####[facility] [address] [place], [address] Bilirubin [Mass/Vol] 0.23 mg/dL Normal 0.00-1.30 [facility] Comment on above: Performed By: #### L 501.5200, L100.0100, L500.4050 ####[facility] [address] [place], [address] BUN/CRE 13.4 RATIO Normal 10-20 [facility] Comment on above: Performed By: #### L 501.5200, L100.0100, L500.4050 ####[facility] [address] [place], [address] Calcium [Mass/Vol] 9.5 mg/dL Normal 7.6-11.0 [facility] Comment on above: Performed By: #### L 501.5200, L100.0100, L500.4050 ####[facility] [address] [place], [address] Chloride [Moles/Vol] 101 mmol/L Normal 98-108 [facility] Comment on above: Performed By: #### L 501.5200, L100.0100, L500.4050 ####[facility] [address] [place], [address] CO2 [Moles/Vol] 27.5 mmol/L Normal 21.0-32.0 [facility] Comment on above: Performed By: #### L 501.5200, L100.0100, L500.4050 ####[facility] [address] [place], [address] Creatinine [Mass/Vol] 1.05 mg/dL Normal 0.70-1.20 [facility] Comment on above: Performed By: #### L 501.5200, L100.0100, L500.4050 ####[facility] [address] [place], [address] ECRCL 58.81 ml/min Normal 50-250 [facility] Comment on above: Performed By: #### L 501.5200, L100.0100, L500.4050 ####[facility] [address] [place], [address] GAP 12 Normal 5-15 [facility] Comment on above: Performed By: #### L 501.5200, L100.0100, L500.4050 ####[facility] [address] [place], [address] GFR/1.73 sq M.predicted among non-blacks MDRD (S/P/Bld) [Vol rate/Area] 74 mL/min/{1.73_m2} Normal >60 [facility] Comment on above: Result Comment: mL/m in/1.73m2 CKD-EPI Creatinine Equation (2020) Performed By: #### L 501.5200, L100.0100, L500.4050 ####[facility] [address] [place], [address] Globulin (S) [Mass/Vol] 2.7 g/dL Normal 2.2-4.2 [facility] Comment on above: Performed By: #### L 501.5200, L100.0100, L500.4050 ####[facility] [address] [place], [address] Glucose [Mass/Vol] 118 mg/dL High 70-99 [facility] Comment on above: Performed By: #### L 501.5200, L100.0100, L500.4050 ####[facility] [address] [place], [address] Potassium [Moles/Vol] 3.3 mmol/L Normal 3.3-5.1 [facility] Comment on above: Performed By: #### L 501.5200, L100.0100, L500.4050 ####[facility] [address] [place], [address] Sodium [Moles/Vol] 141 mmol/L Normal 133-145 [facility] Comment on above: Performed By: #### L 501.5200, L100.0100, L500.4050 ####[facility] [address] [place], [address] T PROT 6.7 g/dL Normal 5.9-8.4 [facility] Comment on above: Performed By: #### L 501.5200, L100.0100, L500.4050 ####[facility] [address] [place], [address] Urea nitrogen [Mass/Vol] 14 mg/dL Normal 4-19 [facility] Comment on above: Performed By: #### L 501.5200, L100.0100, L500.4050 ####[facility] [address] [place], [address] Magnesiumon 12-25-2024 Magnesium [Mass/Vol] 2.3 mg/dL High 1.5-2.2 [facility] Comment on above: Performed By: #### L 501.5200, L100.0100, L500.4050 ####[facility] [address] [place], [address] Magnesium measurement (mass/ volume)Ordered By: Sania Peña on 12-25-2024 Magnesium (Unsp spec) [Mass/Vol] 2.3 mg/dL High 1.5-2.2 [facility] Phosphoruson 12-25-2024 Phosphate [Mass/Vol] 2.0 mg/dL Low 2.7-4.5 [facility] Comment on above: Performed By: #### L 501.2300 ####[facility] [address] [place], [address] CBC W/Diff, Automatedon 07-0 Absolute Lymph 0.72 X10 3/uL Low 0.83-4.51 [facility] Comment on above: Performed By: #### L 100.0100, L500.4050 ####[facility] [address] [place], [address] Absolute Neut 7.0 X10 3/uL Normal 2.0-7.7 [facility] Comment on above: Performed By: #### L 100.0100, L500.4050 ####[facility] [address] [place], [address] Basophils/100 WBC (Bld) 0.5 % Normal 0-1 [facility] Comment on above: Performed By: #### L 100.0100, L500.4050 ####[facility] [address] [place], [address] Eosinophils/100 WBC (Bld) 0.4 % Normal 0-5 [facility] Comment on above: Performed By: #### L 100.0100, L500.4050 ####[facility] [address] [place], [address] Erythrocyte distribution width (RBC) [Ratio] 14.6 % Normal 11.6-14.6 [facility] Comment on above: Performed By: #### L 100.0100, L500.4050 ####[facility] [address] [place], [address] Hematocrit (Bld) [Volume fraction] 37.0 % Low 40-54 [facility] Comment on above: Performed By: #### L 100.0100, L500.4050 ####[facility] [address] [place], [address] Hemoglobin (Bld) [Mass/Vol] 11.5 g/dL Low 13.0-16.5 [facility] Comment on above: Performed By: #### L 100.0100, L500.4050 ####[facility] [address] [place], [address] IG% 0.500 Normal 0.0-0.9 [facility] Comment on above: Result Comment: IG% - Immature Granulocytes (promyelocytes, myelocytes andmetamyelocytes) > 1% indicates that a LEFT SHIFT is Present. Performed By: #### L 100.0100, L500.4050 ####[facility] [address] [place], [address] Lymphocytes/100 WBC (Bld) 8.5 % Low 19-41 [facility] Comment on above: Performed By: #### L 100.0100, L500.4050 ####[facility] [address] [place], [address] MCH (RBC) [Entitic mass] 27.7 pg Normal 27.0-32.0 [facility] Comment on above: Performed By: #### L 100.0100, L500.4050 ####[facility] [address] [place], [address] MCHC (RBC) [Mass/Vol] 31.1 g/dL Low 32-36 [facility] Comment on above: Performed By: #### L 100.0100, L500.4050 ####[facility] [address] [place], [address] MCV (RBC) [Entitic vol] 89.2 fL Normal 80-94 [facility] Comment on above: Performed By: #### L 100.0100, L500.4050 ####[facility] [address] [place], [address] Monocytes/100 WBC (Bld) 7.7 % Normal 0-10 [facility] Comment on above: Performed By: #### L 100.0100, L500.4050 ####[facility] [address] [place], [address] Neutrophils/100 WBC (Bld) 82.4 % High 47-70 [facility] Comment on above: Performed By: #### L 100.0100, L500.4050 ####[facility] [address] [place], [address] Nucleated RBC (Bld) [#/Vol] 0 10*3/uL Normal 0-5 [facility] Comment on above: Performed By: #### L 100.0100, L500.4050 ####[facility] [address] [place], [address] Platelet mean volume (Bld) [Entitic vol] 9.7 fL Normal 6.2-12.0 [facility] Comment on above: Performed By: #### L 100.0100, L500.4050 ####[facility] [address] [place], [address] Platelets (Bld) [#/Vol] 380 10*3/uL Normal 150-450 [facility] Comment on above: Performed By: #### L 100.0100, L500.4050 ####[facility] [address] [place], [address] RBC (Bld) [#/Vol] 4.15 10*6/uL Low 4.6-6.2 [facility] Comment on above: Performed By: #### L 100.0100, L500.4050 ####[facility] [address] [place], [address] RDW SD 46.6 fl High 35.1-43.9 [facility] Comment on above: Performed By: #### L 100.0100, L500.4050 ####[facility] [address] [place], [address] WBC (Bld) [#/Vol] 8.5 10*3/uL Normal 4.4-11.0 [facility] Comment on above: Performed By: #### L 100.0100, L500.4050 ####[facility] [address] [place], [address] Comprehensive Metabolic Prof [facility] 12-24-2024 Albumin [Mass/Vol] 3.8 g/dL Normal 3.4-4.8 [facility] Comment on above: Performed By: #### L 100.0100, L500.4050 ####[place] [facility] [address] [place], [address] Albumin/Globulin [Mass ratio] 1.8 {ratio} Normal 0.9-2.4 [facility] Comment on above: Performed By: #### L 100.0100, L500.4050 ####[facility] [address] [place], [address] ALK PHOS 64 U/L Normal 40-129 [facility] Comment on above: Performed By: #### L 100.0100, L500.4050 ####[facility] [address] [place], [address] ALT [Catalytic activity/Vol] 28 U/L Normal <=46 [facility] Comment on above: Performed By: #### L 100.0100, L500.4050 ####[facility] [address] [place], [address] AST [Catalytic activity/Vol] 23 U/L Normal <=37 [facility] Comment on above: Performed By: #### L 100.0100, L500.4050 ####[facility] [address] [place], [address] Bilirubin [Mass/Vol] 0.25 mg/dL Normal 0.00-1.30 [facility] Comment on above: Performed By: #### L 100.0100, L500.4050 ####[facility] [address] [place], [address] BUN/CRE 16.9 RATIO Normal 10-20 [facility] Comment on above: Performed By: #### L 100.0100, L500.4050 ####[facility] [address] [place], [address] Calcium [Mass/Vol] 8.4 mg/dL Normal 7.6-11.0 [facility] Comment on above: Performed By: #### L 100.0100, L500.4050 ####[facility] [address] [place], [address] Chloride [Moles/Vol] 106 mmol/L Normal 98-108 [facility] Comment on above: Performed By: #### L 100.0100, L500.4050 ####[facility] [address] [place], [address] CO2 [Moles/Vol] 23.1 mmol/L Normal 21.0-32.0 [facility] Comment on above: Performed By: #### L 100.0100, L500.4050 ####[facility] [address] [place], [address] Creatinine [Mass/Vol] 0.98 mg/dL Normal 0.70-1.20 [facility] Comment on above: Performed By: #### L 100.0100, L500.4050 ####[facility] [address] [place], [address] ECRCL 63.01 ml/min Normal 50-250 [facility] Comment on above: Performed By: #### L 100.0100, L500.4050 ####[facility] [address] [place], [address] GAP 11 Normal 5-15 [facility] Comment on above: Performed By: #### L 100.0100, L500.4050 ####[facility] [address] [place], [address] GFR/1.73 sq M.predicted among non-blacks MDRD (S/P/Bld) [Vol rate/Area] 81 mL/min/{1.73_m2} Normal >60 [facility] Comment on above: Result Comment: mL/m in/1.73m2 CKD-EPI Creatinine Equation (2020) Performed By: #### L 100.0100, L500.4050 ####[facility] [address] [place], [address] Globulin (S) [Mass/Vol] 2.2 g/dL Normal 2.2-4.2 [facility] Comment on above: Performed By: #### L 100.0100, L500.4050 ####[facility] [address] [place], [address] Glucose [Mass/Vol] 92 mg/dL Normal 70-99 [facility] Comment on above: Performed By: #### L 100.0100, L500.4050 ####[facility] [address] [place], [address] Potassium [Moles/Vol] 3.9 mmol/L Normal 3.3-5.1 [facility] Comment on above: Performed By: #### L 100.0100, L500.4050 ####[facility] [address] [place], [address] Sodium [Moles/Vol] 140 mmol/L Normal 133-145 [facility] Comment on above: Performed By: #### L 100.0100, L500.4050 ####[facility] [address] [place], [address] T PROT 6.0 g/dL Normal 5.9-8.4 [facility] Comment on above: Performed By: #### L 100.0100, L500.4050 ####[facility] [address] [place], [address] Urea nitrogen [Mass/Vol] 17 mg/dL Normal 4-19 [facility] Comment on above: Performed By: #### L 100.0100, L500.4050 ####[facility] [address] [place], [address] Basic Metabolic Profile (BMP )on 12-23-2024 BUN/CRE 16.4 RATIO Normal 10-20 [facility] Comment on above: Performed By: #### L 500.2500, L100.0500 ####[facility] [address] [place], [address] Calcium [Mass/Vol] 8.4 mg/dL Normal 7.6-11.0 [facility] Comment on above: Performed By: #### L 500.2500, L100.0500 ####[facility] [address] [place], [address] Chloride [Moles/Vol] 104 mmol/L Normal 98-108 [facility] Comment on above: Performed By: #### L 500.2500, L100.0500 ####[facility] [address] [place], [address] CO2 [Moles/Vol] 24.1 mmol/L Normal 21.0-32.0 [facility] Comment on above: Performed By: #### L 500.2500, L100.0500 ####[facility] [address] [place], [address] Creatinine [Mass/Vol] 1.02 mg/dL Normal 0.70-1.20 [facility] Comment on above: Performed By: #### L 500.2500, L100.0500 ####[facility] [address] [place], [address] ECRCL 60.54 ml/min Normal 50-250 [facility] Comment on above: Performed By: #### L 500.2500, L100.0500 ####[facility] [address] [place], [address] GAP 11 Normal 5-15 [facility] Comment on above: Performed By: #### L 500.2500, L100.0500 ####[facility] [address] [place], [address] GFR/1.73 sq M.predicted among non-blacks MDRD (S/P/Bld) [Vol rate/Area] 77 mL/min/{1.73_m2} Normal >60 [facility] Comment on above: Result Comment: mL/m in/1.73m2 CKD-EPI Creatinine Equation (2020) Performed By: #### L 500.2500, L100.0500 ####[facility] [address] [place], [address] Glucose [Mass/Vol] 85 mg/dL Normal 70-99 [facility] Comment on above: Performed By: #### L 500.2500, L100.0500 ####[facility] [address] [place], [address] Potassium [Moles/Vol] 3.8 mmol/L Normal 3.3-5.1 [facility] Comment on above: Performed By: #### L 500.2500, L100.0500 ####[facility] [address] [place], [address] Sodium [Moles/Vol] 139 mmol/L Normal 133-145 [facility] Comment on above: Performed By: #### L 500.2500, L100.0500 ####[facility] [address] [place], [address] Urea nitrogen [Mass/Vol] 17 mg/dL Normal 4-19 [facility] Comment on above: Performed By: #### L 500.2500, L100.0500 ####[facility] [address] [place], [address] CBC-Complete Blood Cnt No Di ffon 12-23-2024 Erythrocyte distribution width (RBC) [Ratio] 14.1 % Normal 11.6-14.6 [facility] Comment on above: Performed By: #### L 500.2500, L100.0500 ####[facility] [address] [place], [address] Hematocrit (Bld) [Volume fraction] 36.3 % Low 40-54 [facility] Comment on above: Performed By: #### L 500.2500, L100.0500 ####[facility] [address] [place], [address] Hemoglobin (Bld) [Mass/Vol] 11.2 g/dL Low 13.0-16.5 [facility] Comment on above: Performed By: #### L 500.2500, L100.0500 ####[facility] [address] [place], [address] MCH (RBC) [Entitic mass] 27.7 pg Normal 27.0-32.0 [facility] Comment on above: Performed By: #### L 500.2500, L100.0500 ####[facility] [address] [place], [address] MCHC (RBC) [Mass/Vol] 30.9 g/dL Low 32-36 [facility] Comment on above: Performed By: #### L 500.2500, L100.0500 ####[facility] [address] [place], [address] MCV (RBC) [Entitic vol] 89.9 fL Normal 80-94 [facility] Comment on above: Performed By: #### L 500.2500, L100.0500 ####[facility] [address] [place], [address] Platelet mean volume (Bld) [Entitic vol] 10.0 fL Normal 6.2-12.0 [facility] Comment on above: Performed By: #### L 500.2500, L100.0500 ####[facility] [address] [place], [address] Platelets (Bld) [#/Vol] 376 10*3/uL Normal 150-450 [facility] Comment on above: Performed By: #### L 500.2500, L100.0500 ####[facility] [address] [place], [address] RBC (Bld) [#/Vol] 4.04 10*6/uL Low 4.6-6.2 [facility] Comment on above: Performed By: #### L 500.2500, L100.0500 ####[facility] [address] [place], [address] RDW SD 46.0 fl High 35.1-43.9 [facility] Comment on above: Performed By: #### L 500.2500, L100.0500 ####[facility] [address] [place], [address] WBC (Bld) [#/Vol] 7.5 10*3/uL Normal 4.4-11.0 [facility] Comment on above: Performed By: #### L 500.2500, L100.0500 ####[facility] [address] [place], [address] Duplex ultrasound of carotid artery reportOrdered By: Raul Jensen on 12-23-2024 Study report [facility] Work Phone: EGD Reporton 12-23-2024 EGD Report Normal [facility] MR/POSTOP.ANEon 12-23-2024 MR/POSTOP.ANE Normal [facility] MR/SRIFPEWI1pr 12-23-2024 MR/POSTOPAN2 Normal [facility] Basic Metabolic Profile (BMP )on 12-22-2024 BUN/CRE 15.7 RATIO Normal 10-20 [facility] Comment on above: Performed By: #### L 500.2500, L100.0500 ####[facility] [address] [place], [address] Calcium [Mass/Vol] 8.8 mg/dL Normal 7.6-11.0 [facility] Comment on above: Performed By: #### L 500.2500, L100.0500 ####[facility] [address] [place], [address] Chloride [Moles/Vol] 103 mmol/L Normal 98-108 [facility] Comment on above: Performed By: #### L 500.2500, L100.0500 ####[facility] [address] [place], [address] CO2 [Moles/Vol] 24.6 mmol/L Normal 21.0-32.0 [facility] Comment on above: Performed By: #### L 500.2500, L100.0500 ####[facility] [address] [place], [address] Creatinine [Mass/Vol] 1.03 mg/dL Normal 0.70-1.20 [facility] Comment on above: Performed By: #### L 500.2500, L100.0500 ####[facility] [address] [place], [address] ECRCL 59.95 ml/min Normal 50-250 [facility] Comment on above: Performed By: #### L 500.2500, L100.0500 ####[facility] [address] [place], [address] GAP 11 Normal 5-15 [facility] Comment on above: Performed By: #### L 500.2500, L100.0500 ####[facility] [address] [place], [address] GFR/1.73 sq M.predicted among non-blacks MDRD (S/P/Bld) [Vol rate/Area] 76 mL/min/{1.73_m2} Normal >60 [facility] Comment on above: Result Comment: mL/m in/1.73m2 CKD-EPI Creatinine Equation (2020) Performed By: #### L 500.2500, L100.0500 ####[facility] [address] [place], [address] Glucose [Mass/Vol] 84 mg/dL Normal 70-99 [facility] Comment on above: Performed By: #### L 500.2500, L100.0500 ####[facility] [address] [place], [address] Potassium [Moles/Vol] 3.6 mmol/L Normal 3.3-5.1 [facility] Comment on above: Performed By: #### L 500.2500, L100.0500 ####[facility] [address] [place], [address] Sodium [Moles/Vol] 139 mmol/L Normal 133-145 [facility] Comment on above: Performed By: #### L 500.2500, L100.0500 ####[facility] [address] [place], [address] Urea nitrogen [Mass/Vol] 16 mg/dL Normal 4-19 [facility] Comment on above: Performed By: #### L 500.2500, L100.0500 ####[facility] [address] [place], [address] CBC-Complete Blood Cnt No Di ffon 12-22-2024 Erythrocyte distribution width (RBC) [Ratio] 13.8 % Normal 11.6-14.6 [facility] Comment on above: Performed By: #### L 500.2500, L100.0500 ####[facility] [address] [place], [address] Hematocrit (Bld) [Volume fraction] 37.7 % Low 40-54 [facility] Comment on above: Performed By: #### L 500.2500, L100.0500 ####[facility] [address] [place], [address] Hemoglobin (Bld) [Mass/Vol] 11.7 g/dL Low 13.0-16.5 [facility] Comment on above: Performed By: #### L 500.2500, L100.0500 ####[facility] [address] [place], [address] MCH (RBC) [Entitic mass] 27.7 pg Normal 27.0-32.0 [facility] Comment on above: Performed By: #### L 500.2500, L100.0500 ####[facility] [address] [place], [address] MCHC (RBC) [Mass/Vol] 31.0 g/dL Low 32-36 [facility] Comment on above: Performed By: #### L 500.2500, L100.0500 ####[facility] [address] [place], [address] MCV (RBC) [Entitic vol] 89.1 fL Normal 80-94 [facility] Comment on above: Performed By: #### L 500.2500, L100.0500 ####[facility] [address] [place], [address] Platelet mean volume (Bld) [Entitic vol] 10.1 fL Normal 6.2-12.0 [facility] Comment on above: Performed By: #### L 500.2500, L100.0500 ####[facility] [address] [place], [address] Platelets (Bld) [#/Vol] 392 10*3/uL Normal 150-450 [facility] Comment on above: Performed By: #### L 500.2500, L100.0500 ####[facility] [address] [place], [address] RBC (Bld) [#/Vol] 4.23 10*6/uL Low 4.6-6.2 [facility] Comment on above: Performed By: #### L 500.2500, L100.0500 ####[facility] [address] [place], [address] RDW SD 45.0 fl High 35.1-43.9 [facility] Comment on above: Performed By: #### L 500.2500, L100.0500 ####[facility] [address] [place], [address] WBC (Bld) [#/Vol] 7.5 10*3/uL Normal 4.4-11.0 [facility] Comment on above: Performed By: #### L 500.2500, L100.0500 ####[facility] [address] [place], [address] Basic Metabolic Profile (BMP )on 12-21-2024 BUN/CRE 16.2 RATIO Normal 10-20 [facility] Comment on above: Performed By: #### L 100.0100, L500.2500 ####[facility] [address] [place], [address] Calcium [Mass/Vol] 8.3 mg/dL Normal 7.6-11.0 [facility] Comment on above: Performed By: #### L 100.0100, L500.2500 ####[facility] [address] [place], [address] Chloride [Moles/Vol] 105 mmol/L Normal 98-108 [facility] Comment on above: Performed By: #### L 100.0100, L500.2500 ####[facility] [address] [place], [address] CO2 [Moles/Vol] 25.0 mmol/L Normal 21.0-32.0 [facility] Comment on above: Performed By: #### L 100.0100, L500.2500 ####[facility] [address] [place], [address] Creatinine [Mass/Vol] 0.99 mg/dL Normal 0.70-1.20 [facility] Comment on above: Performed By: #### L 100.0100, L500.2500 ####[facility] [address] [place], [address] ECRCL 62.37 ml/min Normal 50-250 [facility] Comment on above: Performed By: #### L 100.0100, L500.2500 ####[facility] [address] [place], [address] GAP 9 Normal 5-15 [facility] Comment on above: Performed By: #### L 100.0100, L500.2500 ####[facility] [address] [place], [address] GFR/1.73 sq M.predicted among non-blacks MDRD (S/P/Bld) [Vol rate/Area] 80 mL/min/{1.73_m2} Normal >60 [facility] Comment on above: Result Comment: mL/m in/1.73m2 CKD-EPI Creatinine Equation (2020) Performed By: #### L 100.0100, L500.2500 ####[facility] [address] [place], [address] Glucose [Mass/Vol] 95 mg/dL Normal 70-99 [facility] Comment on above: Performed By: #### L 100.0100, L500.2500 ####[facility] [address] [place], [address] Potassium [Moles/Vol] 3.5 mmol/L Normal 3.3-5.1 [facility] Comment on above: Performed By: #### L 100.0100, L500.2500 ####[facility] [address] [place], [address] Sodium [Moles/Vol] 139 mmol/L Normal 133-145 [facility] Comment on above: Performed By: #### L 100.0100, L500.2500 ####[facility] [address] [place], [address] Urea nitrogen [Mass/Vol] 16 mg/dL Normal 4-19 [facility] Comment on above: Performed By: #### L 100.0100, L500.2500 ####[facility] [address] [place], [address] CBC W/Diff, Automatedon 07-0 5-2025 Absolute Lymph 0.95 X10 3/uL Normal 0.83-4.51 [facility] Comment on above: Performed By: #### L 100.0100, L500.2500 ####[facility] [address] [place], [address] Absolute Neut 5.0 X10 3/uL Normal 2.0-7.7 [facility] Comment on above: Performed By: #### L 100.0100, L500.2500 ####[facility] [address] [place], [address] Basophils/100 WBC (Bld) 0.6 % Normal 0-1 [facility] Comment on above: Performed By: #### L 100.0100, L500.2500 ####[facility] [address] [place], [address] Eosinophils/100 WBC (Bld) 1.2 % Normal 0-5 [facility] Comment on above: Performed By: #### L 100.0100, L500.2500 ####[facility] [address] [place], [address] Erythrocyte distribution width (RBC) [Ratio] 13.7 % Normal 11.6-14.6 [facility] Comment on above: Performed By: #### L 100.0100, L500.2500 ####[facility] [address] [place], [address] Hematocrit (Bld) [Volume fraction] 33.8 % Low 40-54 [facility] Comment on above: Performed By: #### L 100.0100, L500.2500 ####[facility] [address] [place], [address] Hemoglobin (Bld) [Mass/Vol] 10.4 g/dL Low 13.0-16.5 [facility] Comment on above: Performed By: #### L 100.0100, L500.2500 ####[facility] [address] [place], [address] IG% 0.400 Normal 0.0-0.9 [facility] Comment on above: Result Comment: IG% - Immature Granulocytes (promyelocytes, myelocytes andmetamyelocytes) > 1% indicates that a LEFT SHIFT is Present. Performed By: #### L 100.0100, L500.2500 ####[facility] [address] [place], [address] Lymphocytes/100 WBC (Bld) 14.2 % Low 19-41 [facility] Comment on above: Performed By: #### L 100.0100, L500.2500 ####[facility] [address] [place], [address] MCH (RBC) [Entitic mass] 27.6 pg Normal 27.0-32.0 [facility] Comment on above: Performed By: #### L 100.0100, L500.2500 ####[facility] [address] [place], [address] MCHC (RBC) [Mass/Vol] 30.8 g/dL Low 32-36 [facility] Comment on above: Performed By: #### L 100.0100, L500.2500 ####[facility] [address] [place], [address] MCV (RBC) [Entitic vol] 89.7 fL Normal 80-94 [facility] Comment on above: Performed By: #### L 100.0100, L500.2500 ####[facility] [address] [place], [address] Monocytes/100 WBC (Bld) 8.5 % Normal 0-10 [facility] Comment on above: Performed By: #### L 100.0100, L500.2500 ####[facility] [address] [place], [address] Neutrophils/100 WBC (Bld) 75.1 % High 47-70 [facility] Comment on above: Performed By: #### L 100.0100, L500.2500 ####[facility] [address] [place], [address] Nucleated RBC (Bld) [#/Vol] 0 10*3/uL Normal 0-5 [facility] Comment on above: Performed By: #### L 100.0100, L500.2500 ####[facility] [address] [place], [address] Platelet mean volume (Bld) [Entitic vol] 9.7 fL Normal 6.2-12.0 [facility] Comment on above: Performed By: #### L 100.0100, L500.2500 ####[facility] [address] [place], [address] Platelets (Bld) [#/Vol] 326 10*3/uL Normal 150-450 [facility] Comment on above: Performed By: #### L 100.0100, L500.2500 ####[facility] [address] [place], [address] RBC (Bld) [#/Vol] 3.77 10*6/uL Low 4.6-6.2 [facility] Comment on above: Performed By: #### L 100.0100, L500.2500 ####[facility] [address] [place], [address] RDW SD 44.7 fl High 35.1-43.9 [facility] Comment on above: Performed By: #### L 100.0100, L500.2500 ####[facility] [address] [place], [address] WBC (Bld) [#/Vol] 6.7 10*3/uL Normal 4.4-11.0 [facility] Comment on above: Performed By: #### L 100.0100, L500.2500 ####[facility] [address] [place], [address] CBC W/Diff, Automatedon 07-0 4-202 Absolute Lymph 0.69 X10 3/uL Low 0.83-4.51 [facility] Comment on above: Performed By: #### L 100.0100 ####[facility] [address] [place], [address] Absolute Neut 5.5 X10 3/uL Normal 2.0-7.7 [facility] Comment on above: Performed By: #### L 100.0100 ####[facility] [address] [place], [address] Basophils/100 WBC (Bld) 0.9 % Normal 0-1 [facility] Comment on above: Performed By: #### L 100.0100 ####[facility] [address] [place], [address] Eosinophils/100 WBC (Bld) 1.2 % Normal 0-5 [facility] Comment on above: Performed By: #### L 100.0100 ####[facility] [address] [place], [address] Erythrocyte distribution width (RBC) [Ratio] 13.7 % Normal 11.6-14.6 [facility] Comment on above: Performed By: #### L 100.0100 ####[facility] [address] [place], [address] Hematocrit (Bld) [Volume fraction] 35.7 % Low 40-54 [facility] Comment on above: Performed By: #### L 100.0100 ####[facility] [address] [place], [address] Hemoglobin (Bld) [Mass/Vol] 10.9 g/dL Low 13.0-16.5 [facility] Comment on above: Performed By: #### L 100.0100 ####[facility] [address] [place], [address] IG% 0.400 Normal 0.0-0.9 [facility] Comment on above: Result Comment: IG% - Immature Granulocytes (promyelocytes, myelocytes andmetamyelocytes) > 1% indicates that a LEFT SHIFT is Present. Performed By: #### L 100.0100 ####[facility] [address] [place], [address] Lymphocytes/100 WBC (Bld) 9.9 % Low 19-41 [facility] Comment on above: Performed By: #### L 100.0100 ####[facility] [address] [place], [address] MCH (RBC) [Entitic mass] 27.3 pg Normal 27.0-32.0 [facility] Comment on above: Performed By: #### L 100.0100 ####[facility] [address] [place], [address] MCHC (RBC) [Mass/Vol] 30.5 g/dL Low 32-36 [facility] Comment on above: Performed By: #### L 100.0100 ####[facility] [address] [place], [address] MCV (RBC) [Entitic vol] 89.5 fL Normal 80-94 [facility] Comment on above: Performed By: #### L 100.0100 ####[facility] [address] [place], [address] Monocytes/100 WBC (Bld) 8.5 % Normal 0-10 [facility] Comment on above: Performed By: #### L 100.0100 ####[facility] [address] [place], [address] Neutrophils/100 WBC (Bld) 79.1 % High 47-70 [facility] Comment on above: Performed By: #### L 100.0100 ####[facility] [address] [place], [address] Nucleated RBC (Bld) [#/Vol] 0 10*3/uL Normal 0-5 [facility] Comment on above: Performed By: #### L 100.0100 ####[facility] [address] [place], [address] Platelet mean volume (Bld) [Entitic vol] 10.0 fL Normal 6.2-12.0 [facility] Comment on above: Performed By: #### L 100.0100 ####[facility] [address] [place], [address] Platelets (Bld) [#/Vol] 355 10*3/uL Normal 150-450 [facility] Comment on above: Performed By: #### L 100.0100 ####[facility] [address] [place], [address] RBC (Bld) [#/Vol] 3.99 10*6/uL Low 4.6-6.2 [facility] Comment on above: Performed By: #### L 100.0100 ####[facility] [address] [place], [address] RDW SD 44.4 fl High 35.1-43.9 [facility] Comment on above: Performed By: #### L 100.0100 ####[facility] [address] [place], [address] WBC (Bld) [#/Vol] 6.9 10*3/uL Normal 4.4-11.0 [facility] Comment on above: Performed By: #### L 100.0100 ####[facility] [address] [place], [address] Carotid Duplex Ultrasoundon 12-20-2024 Carotid Duplex Ultrasound Normal [facility] Vitamin B12on 12-20-2024 Cobalamin (Vitamin B12) [Mass/Vol] 774 pg/mL Normal 180-914 [facility] Comment on above: Performed By: #### L 503.0106 ####[facility] [address] [place], [address] Vitamin B12 ser/plasOrdered By: Lisha Talamantes on 12-20-2024 Cobalamin (Vitamin B12) [Mass/Vol] 774 pg/mL 180-914 [facility] CBC W/Diff, Automatedon 07- Absolute Lymph 0.67 X10 3/uL Low 0.83-4.51 [facility] Comment on above: Performed By: #### L 100.0100, L500.4050 ####[facility] [address] [place], [address] Absolute Neut 6.0 X10 3/uL Normal 2.0-7.7 [facility] Comment on above: Performed By: #### L 100.0100, L500.4050 ####[facility] [address] [place], [address] Basophils/100 WBC (Bld) 0.8 % Normal 0-1 [facility] Comment on above: Performed By: #### L 100.0100, L500.4050 ####[facility] [address] [place], [address] Eosinophils/100 WBC (Bld) 1.9 % Normal 0-5 [facility] Comment on above: Performed By: #### L 100.0100, L500.4050 ####[facility] [address] [place], [address] Erythrocyte distribution width (RBC) [Ratio] 13.6 % Normal 11.6-14.6 [facility] Comment on above: Performed By: #### L 100.0100, L500.4050 ####[facility] [address] [place], [address] Hematocrit (Bld) [Volume fraction] 39.1 % Low 40-54 [facility] Comment on above: Performed By: #### L 100.0100, L500.4050 ####[facility] [address] [place], [address] Hemoglobin (Bld) [Mass/Vol] 11.9 g/dL Low 13.0-16.5 [facility] Comment on above: Performed By: #### L 100.0100, L500.4050 ####[facility] [address] [place], [address] IG% 0.400 Normal 0.0-0.9 [facility] Comment on above: Result Comment: IG% - Immature Granulocytes (promyelocytes, myelocytes andmetamyelocytes) > 1% indicates that a LEFT SHIFT is Present. Performed By: #### L 100.0100, L500.4050 ####[facility] [address] [place], [address] Lymphocytes/100 WBC (Bld) 9.0 % Low 19-41 [facility] Comment on above: Performed By: #### L 100.0100, L500.4050 ####[facility] [address] [place], [address] MCH (RBC) [Entitic mass] 27.5 pg Normal 27.0-32.0 [facility] Comment on above: Performed By: #### L 100.0100, L500.4050 ####[facility] [address] [place], [address] MCHC (RBC) [Mass/Vol] 30.4 g/dL Low 32-36 [facility] Comment on above: Performed By: #### L 100.0100, L500.4050 ####[facility] [address] [place], [address] MCV (RBC) [Entitic vol] 90.5 fL Normal 80-94 [facility] Comment on above: Performed By: #### L 100.0100, L500.4050 ####[facility] [address] [place], [address] Monocytes/100 WBC (Bld) 6.6 % Normal 0-10 [facility] Comment on above: Performed By: #### L 100.0100, L500.4050 ####[facility] [address] [place], [address] Neutrophils/100 WBC (Bld) 81.3 % High 47-70 [facility] Comment on above: Performed By: #### L 100.0100, L500.4050 ####[facility] [address] [place], [address] Nucleated RBC (Bld) [#/Vol] 0 10*3/uL Normal 0-5 [facility] Comment on above: Performed By: #### L 100.0100, L500.4050 ####[facility] [address] [place], [address] Platelet mean volume (Bld) [Entitic vol] 9.6 fL Normal 6.2-12.0 [facility] Comment on above: Performed By: #### L 100.0100, L500.4050 ####[facility] [address] [place], [address] Platelets (Bld) [#/Vol] 375 10*3/uL Normal 150-450 [facility] Comment on above: Performed By: #### L 100.0100, L500.4050 ####[facility] [address] [place], [address] RBC (Bld) [#/Vol] 4.32 10*6/uL Low 4.6-6.2 [facility] Comment on above: Performed By: #### L 100.0100, L500.4050 ####[facility] [address] [place], [address] RDW SD 44.8 fl High 35.1-43.9 [facility] Comment on above: Performed By: #### L 100.0100, L500.4050 ####[facility] [address] [place], [address] WBC (Bld) [#/Vol] 7.4 10*3/uL Normal 4.4-11.0 [facility] Comment on above: Performed By: #### L 100.0100, L500.4050 ####[facility] [address] [place], [address] CDIFF (PCR)on 12-19-2024 CDIFF Normal [facility] Comment on above: Performed By: #### M 100.6796 ####[facility] [address] [place], [address] Comprehensive Metabolic Prof ilon 12-19-2024 Albumin [Mass/Vol] 4.3 g/dL Normal 3.4-4.8 [facility] Comment on above: Performed By: #### L 100.0100, L500.4050 ####[facility] [address] [place], [address] Albumin/Globulin [Mass ratio] 1.5 {ratio} Normal 0.9-2.4 [facility] Comment on above: Performed By: #### L 100.0100, L500.4050 ####[facility] [address] [place], [address] ALK PHOS 69 U/L Normal 40-129 [facility] Comment on above: Performed By: #### L 100.0100, L500.4050 ####[facility] [address] [place], [address] ALT [Catalytic activity/Vol] 25 U/L Normal <=46 [facility] Comment on above: Performed By: #### L 100.0100, L500.4050 ####[facility] [address] [place], [address] AST [Catalytic activity/Vol] 23 U/L Normal <=37 [facility] Comment on above: Performed By: #### L 100.0100, L500.4050 ####[facility] [address] [place], [address] Bilirubin [Mass/Vol] 0.24 mg/dL Normal 0.00-1.30 [facility] Comment on above: Performed By: #### L 100.0100, L500.4050 ####[facility] [address] [place], [address] BUN/CRE 17.6 RATIO Normal 10-20 [facility] Comment on above: Performed By: #### L 100.0100, L500.4050 ####[facility] [address] [place], [address] Calcium [Mass/Vol] 9.5 mg/dL Normal 7.6-11.0 [facility] Comment on above: Performed By: #### L 100.0100, L500.4050 ####[facility] [address] [place], [address] Chloride [Moles/Vol] 101 mmol/L Normal 98-108 [facility] Comment on above: Performed By: #### L 100.0100, L500.4050 ####[facility] [address] [place], [address] CO2 [Moles/Vol] 27.6 mmol/L Normal 21.0-32.0 [facility] Comment on above: Performed By: #### L 100.0100, L500.4050 ####[facility] [address] [place], [address] Creatinine [Mass/Vol] 1.06 mg/dL Normal 0.70-1.20 [facility] Comment on above: Performed By: #### L 100.0100, L500.4050 ####[facility] [address] [place], [address] ECRCL 58.25 ml/min Normal 50-250 [facility] Comment on above: Performed By: #### L 100.0100, L500.4050 ####[facility] [address] [place], [address] GAP 12 Normal 5-15 [facility] Comment on above: Performed By: #### L 100.0100, L500.4050 ####[facility] [address] [place], [address] GFR/1.73 sq M.predicted among non-blacks MDRD (S/P/Bld) [Vol rate/Area] 73 mL/min/{1.73_m2} Normal >60 [facility] Comment on above: Result Comment: mL/m in/1.73m2 CKD-EPI Creatinine Equation (2020) Performed By: #### L 100.0100, L500.4050 ####[facility] [address] [place], [address] Globulin (S) [Mass/Vol] 2.8 g/dL Normal 2.2-4.2 [facility] Comment on above: Performed By: #### L 100.0100, L500.4050 ####[facility] [address] [place], [address] Glucose [Mass/Vol] 109 mg/dL High 70-99 [facility] Comment on above: Performed By: #### L 100.0100, L500.4050 ####[facility] [address] [place], [address] Potassium [Moles/Vol] 3.6 mmol/L Normal 3.3-5.1 [facility] Comment on above: Performed By: #### L 100.0100, L500.4050 ####[facility] [address] [place], [address] Sodium [Moles/Vol] 141 mmol/L Normal 133-145 [facility] Comment on above: Performed By: #### L 100.0100, L500.4050 ####[facility] [address] [place], [address] T PROT 7.1 g/dL Normal 5.9-8.4 [facility] Comment on above: Performed By: #### L 100.0100, L500.4050 ####[facility] [address] [place], [address] Urea nitrogen [Mass/Vol] 19 mg/dL Normal 4-19 [facility] Comment on above: Performed By: #### L 100.0100, L500.4050 ####[facility] [address] [place], [address] ENTERIC PATHOGEN PANEL STOOL on 12-19-2024 EP PANEL Normal [facility] Comment on above: Performed By: #### M 100.637 ####[facility] [address] [place], [address] Magnetic resonance imaging r eportOrdered By: Dorian Parker on 12-19-2024 Study report [facility] Basic Metabolic Profile (BMP )on 12-18-2024 BUN/CRE 20.6 RATIO High 10-20 [facility] Comment on above: Performed By: #### L 500.2500, L100.0500 ####[facility] [address] [place], [address] Calcium [Mass/Vol] 9.7 mg/dL Normal 7.6-11.0 [facility] Comment on above: Performed By: #### L 500.2500, L100.0500 ####[facility] [address] [place], [address] Chloride [Moles/Vol] 103 mmol/L Normal 98-108 [facility] Comment on above: Performed By: #### L 500.2500, L100.0500 ####[facility] [address] [place], [address] CO2 [Moles/Vol] 26.5 mmol/L Normal 21.0-32.0 [facility] Comment on above: Performed By: #### L 500.2500, L100.0500 ####[facility] [address] [place], [address] Creatinine [Mass/Vol] 1.06 mg/dL Normal 0.70-1.20 [facility] Comment on above: Performed By: #### L 500.2500, L100.0500 ####[facility] [address] [place], [address] ECRCL 58.25 ml/min Normal 50-250 [facility] Comment on above: Performed By: #### L 500.2500, L100.0500 ####[facility] [address] [place], [address] GAP 12 Normal 5-15 [facility] Comment on above: Performed By: #### L 500.2500, L100.0500 ####[facility] [address] [place], [address] GFR/1.73 sq M.predicted among non-blacks MDRD (S/P/Bld) [Vol rate/Area] 73 mL/min/{1.73_m2} Normal >60 [facility] Comment on above: Result Comment: mL/m in/1.73m2 CKD-EPI Creatinine Equation (2020) Performed By: #### L 500.2500, L100.0500 ####[facility] [address] [place], [address] Glucose [Mass/Vol] 95 mg/dL Normal 70-99 [facility] Comment on above: Performed By: #### L 500.2500, L100.0500 ####[facility] [address] [place], [address] Potassium [Moles/Vol] 4.2 mmol/L Normal 3.3-5.1 [facility] Comment on above: Result Comment: Hemo lysis present, Results??could be affected.?? Performed By: #### L 500.2500, L100.0500 ####[facility] [address] [place], [address] Sodium [Moles/Vol] 141 mmol/L Normal 133-145 [facility] Comment on above: Performed By: #### L 500.2500, L100.0500 ####[facility] [address] [place], [address] Urea nitrogen [Mass/Vol] 22 mg/dL High 4-19 [facility] Comment on above: Performed By: #### L 500.2500, L100.0500 ####[facility] [address] [place], [address] Brain without Contraston Brain without Contrast Normal [facility] CBC-Complete Blood Cnt No Di ffon 12-18-2024 Erythrocyte distribution width (RBC) [Ratio] 13.7 % Normal 11.6-14.6 [facility] Comment on above: Performed By: #### L 500.2500, L100.0500 ####[facility] [address] [place], [address] Hematocrit (Bld) [Volume fraction] 41.9 % Normal 40-54 [facility] Comment on above: Performed By: #### L 500.2500, L100.0500 ####[facility] [address] [place], [address] Hemoglobin (Bld) [Mass/Vol] 12.8 g/dL Low 13.0-16.5 [facility] Comment on above: Performed By: #### L 500.2500, L100.0500 ####[facility] [address] [place], [address] MCH (RBC) [Entitic mass] 27.7 pg Normal 27.0-32.0 [facility] Comment on above: Performed By: #### L 500.2500, L100.0500 ####[facility] [address] [place], [address] MCHC (RBC) [Mass/Vol] 30.5 g/dL Low 32-36 [facility] Comment on above: Performed By: #### L 500.2500, L100.0500 ####[facility] [address] [place], [address] MCV (RBC) [Entitic vol] 90.7 fL Normal 80-94 [facility] Comment on above: Performed By: #### L 500.2500, L100.0500 ####[facility] [address] [place], [address] Platelet mean volume (Bld) [Entitic vol] 9.9 fL Normal 6.2-12.0 [facility] Comment on above: Performed By: #### L 500.2500, L100.0500 ####[facility] [address] [place], [address] Platelets (Bld) [#/Vol] 386 10*3/uL Normal 150-450 [facility] Comment on above: Performed By: #### L 500.2500, L100.0500 ####[facility] [address] [place], [address] RBC (Bld) [#/Vol] 4.62 10*6/uL Normal 4.6-6.2 [facility] Comment on above: Performed By: #### L 500.2500, L100.0500 ####[facility] [address] [place], [address] RDW SD 45.7 fl High 35.1-43.9 [facility] Comment on above: Performed By: #### L 500.2500, L100.0500 ####[facility] [address] [place], [address] WBC (Bld) [#/Vol] 10.4 10*3/uL Normal 4.4-11.0 [facility] Comment on above: Performed By: #### L 500.2500, L100.0500 ####[facility] [address] [place], [address] Clostridium difficile detect ion by polymerase chain reactionOrdered By: Lisha Talamantes on 12-18-2024 C. difficile DNA ALEENA+probe Ql (Unsp spec) [facility] Echo, Limited Studyon 2024 Echo, Limited Study Normal [facility] Electrocardiogram reportOrde red By: Brendan Vallejo on 12-18-2024 EKG study [facility] Other Phone: [phone] Limited echocardiogram repor tOrdered By: Milton [...] aPTT Coag (PPP) [Time] 24.2 s 24.1-36.2 [facility] Anion gap in Serum or Plasma Ordered By: Seth Pritchard on 12-17-2024 Anion gap [Moles/Vol] 13 mmol/L 5-15 [facility] Automated blood erythrocyte countOrdered By: Seth Pritchard on 12-17-2024 RBC (Bld) [#/Vol] 4.45 10*6/uL Low 4.6-6.2 [facility] Comment on above: Performed By: #### L 501.4021, L300.4310, L100.0100, L500.2500, L300.3900 ####[facility] [address] [place], [place], [id number] Automated blood hematocrit ( percentage)Ordered By: Seth Pritchard on 12-17-2024 Hematocrit (Bld) [Volume fraction] 39.6 % Low 40-54 [facility] Comment on above: Performed By: #### L 501.4021, L300.4310, L100.0100, L500.2500, L300.3900 ####[facility] [address] [facility] [place], [place], [id number] Automated lymphocyte count a s percentage of [...] L100.0100, L500.2500, L300.3900 ####[facility] [address] [place], [address] ECRCL 52.33 ml/min Normal 50-250 [facility] Comment on above: Performed By: #### L 501.4021, L300.4310, L100.0100, L500.2500, L300.3900 ####[facility] [address] [place], [address] GAP 13 Normal 5-15 [facility] Comment on above: Performed By: #### L 501.4021, L300.4310, L100.0100, L500.2500, L300.3900 ####[facility] [address] [place], [address] Potassium [Moles/Vol] 3.6 mmol/L Normal 3.3-5.1 [facility] Comment on above: Performed By: #### L 501.4021, L300.4310, L100.0100, L500.2500, L300.3900 ####[facility] [address] [place], [address] Basophil percentageOrdered B y: Seth Pritchard on 12-17-2024 Basophils/100 WBC (Bld) 1.1 % High 0-1 [facility] Comment on above: Performed By: #### L 501.4021, L300.4310, L100.0100, L500.2500, L300.3900 ####[facility] [address] [place], [address] CBC W/Diff, Automatedon 07-0 Absolute Lymph 1.03 X10 3/uL Normal 0.83-4.51 [facility] Comment on above: Performed By: #### L 501.4021, L300.4310, L100.0100, L500.2500, L300.3900 ####[facility] [address] [place], [address] Absolute Neut 6.6 X10 3/uL Normal 2.0-7.7 [facility] Comment on above: Performed By: #### L 501.4021, L300.4310, L100.0100, L500.2500, L300.3900 ####[facility] [address] [place], [address] IG% 0.400 Normal 0.0-0.9 [facility] Comment on above: Result Comment: IG% - Immature Granulocytes (promyelocytes, myelocytes andmetamyelocytes) > 1% indicates that a LEFT SHIFT is Present. Performed By: #### L 501.4021, L300.4310, L100.0100, L500.2500, L300.3900 ####[facility] [address] [place], [address] Lymphocytes/100 WBC (Bld) 12.1 % Low 19-41 [facility] Comment on above: Performed By: #### L 501.4021, L300.4310, L100.0100, L500.2500, L300.3900 ####[facility] [address] [place], [address] MCHC (RBC) [Mass/Vol] 31.3 g/dL Low 32-36 [facility] Comment on above: Performed By: #### L 501.4021, L300.4310, L100.0100, L500.2500, L300.3900 ####[facility] [address] [place], [address] Nucleated RBC (Bld) [#/Vol] 0 10*3/uL Normal 0-5 [facility] Comment on above: Performed By: #### L 501.4021, L300.4310, L100.0100, L500.2500, L300.3900 ####[facility] [address] [place], [address] Platelet mean volume (Bld) [Entitic vol] 10.0 fL Normal 6.2-12.0 [facility] Comment on above: Performed By: #### L 501.4021, L300.4310, L100.0100, L500.2500, L300.3900 ####[facility] [address] [place], [address] RDW SD 45.6 fl High 35.1-43.9 [facility] Comment on above: Performed By: #### L 501.4021, L300.4310, L100.0100, L500.2500, L300.3900 ####[facility] [address] [place], [address] Carbon dioxide, total [Moles /volume] in Central venous bloodOrdered By: Seth Pritchard on 12-17-2024 CO2 [Moles/Vol] 25.5 mmol/L Normal 21.0-32.0 [facility] Comment on above: Performed By: #### L 501.4021, L300.4310, L100.0100, L500.2500, L300.3900 ####[facility] [address] [place], [address] Chest PA and Lateralon 12-17 Chest PA and Lateral Normal [facility] Chloride assayOrdered By: Bill Pritchard on 12-17-2024 Chloride [Moles/Vol] 104 mmol/L Normal 98-108 [facility] Comment on above: Performed By: #### L 501.4021, L300.4310, L100.0100, L500.2500, L300.3900 ####[facility] [address] [place], [address] Emergency Department Summary on 07-01-2025 Emergency Department Summary Normal [facility] Eosinophil percentageOrdered By: Seth Pritchard on 12-17-2024 Eosinophils/100 WBC (Bld) 1.1 % Normal 0-5 [facility] Comment on above: Performed By: #### L 501.4021, L300.4310, L100.0100, L500.2500, L300.3900 ####[facility] [address] [place], [place], [id number] Erythrocyte distribution wid th ratioOrdered By: Seth Pritchard on 12-17-2024 Erythrocyte distribution width (RBC) [Ratio] 14.0 % Normal 11.6-14.6 [facility] Comment on above: Performed By: #### L 501.4021, L300.4310, L100.0100, L500.2500, L300.3900 ####[facility] [address] [place], [place], [id number] Erythrocyte distribution wid th standard deviationOrdered By: [...] L100.0100, L500.2500, L300.3900 ####[facility] [address] [place], [address] H AND P Exam - Hospitaliston 12-17-2024 H&P Exam - Hospitalist Normal [facility] Hemoglobin A1c percentageOrd ered By: Roman Patel on 12-17-2024 HbA1c (Bld) [Mass fraction] 5.9 % High <=5.6 [facility] Comment on above: Result Comment: Norm al < 5.7 % Prediabetic 5.7 - 6.4 % Diabetic >or= 6.5 % Please note range changes. Performed By: #### L 501.9985, L501.9520 ####[facility] [address] [place], [address] Hemoglobin measurementOrdere d By: Seth Pritchard on 12-17-2024 Hemoglobin (Bld) [Mass/Vol] 12.4 g/dL Low 13.0-16.5 [facility] Comment on above: Performed By: #### L 501.4021, L300.4310, L100.0100, L500.2500, L300.3900 ####[facility] [address] [place], [address] Immature granulocytes/100 WB C Auto (Bld)Ordered By: Seth Pritchard on 12-17-2024 Immature granulocytes/100 WBC (Bld) 0.400 % 0.0-0.9 [facility] L499.0042on 12-17-2024 Trop T High Sen 23 ng/L High <=22 [facility] Comment on above: Performed By: #### L 499.0042 ####[facility] [address] [place], [address] L499.0043on 12-17-2024 Trop T High Sen 23 ng/L High <=22 [facility] Comment on above: Performed By: #### L 499.0043 ####[facility] [address] [place], [address] L501.4021on 12-17-2024 Trop T High Sen 27 ng/L High <=22 [facility] Comment on above: Performed By: #### L 501.4021, L300.4310, L100.0100, L500.2500, L300.3900 ####[facility] [address] [place], [place], [address] MCV (mean corpuscular volume ) determinationOrdered By: Seth Pritchard on 12-17-2024 MCV (RBC) [Entitic vol] 89.0 fL Normal 80-94 [facility] Comment on above: Performed By: #### L 501.4021, L300.4310, L100.0100, L500.2500, L300.3900 ####[facility] [address] [place], [place], [address] Mean corpuscular hemoglobin (MCH) determinationOrdered By: Seth Pritchard on 12-17-2024 MCH (RBC) [Entitic mass] 27.9 pg Normal 27.0-32.0 [facility] Comment on above: Performed By: #### L 501.4021, L300.4310, L100.0100, L500.2500, L300.3900 ####[facility] [address] [place], [place], [id number] Monocyte percentageOrdered B y: Seth Pritchard on 12-17-2024 Monocytes/100 WBC (Bld) 7.8 % Normal 0-10 [facility] Comment on above: Performed By: #### L 501.4021, L300.4310, L100.0100, L500.2500, L300.3900 ####[facility] [address] [place], [address] Neutrophil percentageOrdered By: Seth Pritchard on 12-17-2024 Neutrophils/100 WBC (Bld) 77.5 % High 47-70 [facility] Comment on above: Performed By: #### L 501.4021, L300.4310, L100.0100, L500.2500, L300.3900 ####[facility] [address] [place], [address] Partial Thromboplast Timeon 12-17-2024 aPTT Coag (Bld) [Time] 24.2 s Normal 24.1-36.2 [facility] Comment on above: Performed By: #### L 501.4021, L300.4310, L100.0100, L500.2500, L300.3900 ####[facility] [address] [place], [address] Platelet countOrdered By: Bill Pritchard on 12-17-2024 Platelets (Bld) [#/Vol] 417 10*3/uL Normal 150-450 [facility] Comment on above: Performed By: #### L 501.4021, L300.4310, L100.0100, L500.2500, L300.3900 ####[facility] [address] [place], [address] Potassium measurement (mass/ volume)Ordered By: Seth Pritchard on 12-17-2024 Potassium (Unsp spec) [Mass/Vol] 3.6 mmol/L 3.3-5.1 [facility] Prothrombin Time w/INRon INR Coag (PPP) [Relative time] 0.9 {INR} Normal [facility] Comment on above: Performed By: #### L 501.4021, L300.4310, L100.0100, L500.2500, L300.3900 ####[facility] [address] [place], [address] Prothrombin timeOrdered By: Seth Pritchard on 12-17-2024 PT Coag (PPP) [Time] 12.8 s Normal 11.7-14.9 [facility] Comment on above: Performed By: #### L 501.4021, L300.4310, L100.0100, L500.2500, L300.3900 ####[facility] [address] [place], [address] STROKE Brain/Head without Co nton 12-17-2024 STROKE Brain/Head without Cont Normal [facility] STROKE CTA Head AND Neck W/C onon 12-17-2024 STROKE CTA Head AND Neck W/Con Normal [facility] Serum creatinine measurement (mass/volume)Ordered By: Seth Pritchard on 12-17-2024 Creatinine [Mass/Vol] 1.18 mg/dL Normal 0.70-1.20 [facility] Comment on above: Performed By: #### L 501.4021, L300.4310, L100.0100, L500.2500, L300.3900 ####[facility] [address] [place], [address] Serum glucose measurement (m ass/volume)Ordered By: Seth Pritchard on 12-17-2024 Glucose [Mass/Vol] 137 mg/dL High 70-99 [facility] Comment on above: Performed By: #### L 501.4021, L300.4310, L100.0100, L500.2500, L300.3900 ####[facility] [address] [place], [address] Serum or plasma calcium luis urement (mass/volume)Ordered By: Seth Pritchard on 12-17-2024 Calcium [Mass/Vol] 9.9 mg/dL Normal 7.6-11.0 [facility] Comment on above: Performed By: #### L 501.4021, L300.4310, L100.0100, L500.2500, L300.3900 ####[facility] [address] [place], [address] Serum or plasma urea nitroge n measurement (mass/volume)Ordered By: Seth Pritchard on 12-17-2024 Urea nitrogen [Mass/Vol] 31 mg/dL High 4-19 [facility] Comment on above: Performed By: #### L 501.4021, L300.4310, L100.0100, L500.2500, L300.3900 ####[facility] [address] [place], [address] Sodium levelOrdered By: Huang Pritchard on 12-17-2024 Sodium [Moles/Vol] 142 mmol/L Normal 133-145 [facility] Comment on above: Performed By: #### L 501.4021, L300.4310, L100.0100, L500.2500, L300.3900 ####[facility] [address] [place], [place], [id number] TSH DL <= 0.005 mIU/L QnOrde red By: Roman Patel on 12-17-2024 TSH Qn 3.380 uIU/mL 0.300-4.200 [facility] Thyroid Stim Hormone (TSH)on 12-17-2024 TSH 3.380 uIU/mL Normal 0.300-4.200 [facility] Comment on above: Performed By: #### L 501.9985, L501.9520 ####[facility] [address] [place], [address] Troponin T.cardiac [Mass/vol ume] in [...] WBC (Bld) [#/Vol] 8.5 10*3/uL Normal 4.4-11.0 [facility] Comment on above: Performed By: #### L 501.4021, L300.4310, L100.0100, L500.2500, L300.3900 ####[facility] [address] [place], [place], [id number] Anion gap in Serum or Plasma Ordered By: Lisha Talamantes on 12-16-2024 Anion gap [Moles/Vol] 12 mmol/L 5-15 [facility] BUN/creatinine ratioOrdered By: Lisha Talamantes on 12-16-2024 Urea nitrogen/Creatinine [Mass ratio] 24.5 mg/mg High 10-20 [facility] Basic Metabolic Profile (BMP )on 12-16-2024 BUN/CRE 24.5 RATIO High - [facility] Comment on above: Performed By: #### L 500.2500 ####[facility] [address] [place], [address] Calcium [Mass/Vol] 9.4 mg/dL Normal 7.6-11.0 [facility] Comment on above: Performed By: #### L 500.2500 ####[facility] [address] [place], [address] Chloride [Moles/Vol] 102 mmol/L Normal 98-108 [facility] Comment on above: Performed By: #### L 500.2500 ####[facility] [address] [place], [address] CO2 [Moles/Vol] 25.5 mmol/L Normal 21.0-32.0 [facility] Comment on above: Performed By: #### L 500.2500 ####[facility] [address] [place], [address] Creatinine [Mass/Vol] 1.17 mg/dL Normal 0.70-1.20 [facility] Comment on above: Performed By: #### L 500.2500 ####[facility] [address] [place], [address] ECRCL 52.78 ml/min Normal 50-250 [facility] Comment on above: Performed By: #### L 500.2500 ####[facility] [address] [place], [address] GAP 12 Normal 5-15 [facility] Comment on above: Performed By: #### L 500.2500 ####[facility] [address] [place], [address] GFR/1.73 sq M.predicted among non-blacks MDRD (S/P/Bld) [Vol rate/Area] 65 mL/min/{1.73_m2} Normal >60 [facility] Comment on above: Result Comment: mL/m in/1.73m2 CKD-EPI Creatinine Equation (2020) Performed By: #### L 500.2500 ####[facility] [address] [place], [address] Glucose [Mass/Vol] 108 mg/dL High 70-99 [facility] Comment on above: Performed By: #### L 500.2500 ####[facility] [address] [place], [address] Potassium [Moles/Vol] 3.6 mmol/L Normal 3.3-5.1 [facility] Comment on above: Performed By: #### L 500.2500 ####[facility] [address] [place], [address] Sodium [Moles/Vol] 140 mmol/L Normal 133-145 [facility] Comment on above: Performed By: #### L 500.2500 ####[facility] [address] [place], [address] Urea nitrogen [Mass/Vol] 29 mg/dL High 4-19 [facility] Comment on above: Performed By: #### L 500.2500 ####[facility] [address] [place], [address] Carbon dioxide, total [Moles /volume] in Central venous bloodOrdered By: Lisha Talamantes on 12-16-2024 CO2 [Moles/Vol] 25.5 mmol/L 21.0-32.0 [facility] Chloride assayOrdered By: Sierra Talamantes on 12-16-2024 Chloride [Moles/Vol] 102 mmol/L 98-108 [facility] Culture, Blood (WB)on 2024 CUB Blood cultures x2, from two different sites No growth in 5 days. Normal [facility] Comment on above: Performed By: #### M 200.1000 ####[facility] [address] [place], [place], [id number] Glomerular filtration rate ( GFR) estimation/1.73 sq [...] on 12-16-2024 Creatinine [Mass/Vol] 1.17 mg/dL 0.70-1.20 [facility] [facility] Serum glucose measurement (m ass/volume)Ordered By: Lisha Talamantes on 12-16-2024 Glucose [Mass/Vol] 108 mg/dL High 70-99 [facility] Serum or plasma calcium luis urement (mass/volume)Ordered By: Lisha Talamantes on 12-16-2024 Calcium [Mass/Vol] 9.4 mg/dL 7.6-11.0 [facility] Serum or plasma urea nitroge n measurement (mass/volume)Ordered By: Lisha Talamantes on 12-16-2024 Urea nitrogen [Mass/Vol] 29 mg/dL High 4-19 [facility] Sodium levelOrdered By: Cecilia Talamantes on 12-16-2024 Sodium [Moles/Vol] 140 mmol/L 133-145 [facility] Absolute lymphocyte countOrd ered By: Lisha Talamantes [...] By: #### L 501.2300, L500.2500, L100.0100, L501.5200 ####[facility] [address] [place], [address] Calcium [Mass/Vol] 9.3 mg/dL Normal 7.6-11.0 [facility] Comment on above: Performed By: #### L 501.2300, L500.2500, L100.0100, L501.5200 ####[facility] [address] [place], [address] Chloride [Moles/Vol] 106 mmol/L Normal 98-108 [facility] Comment on above: Performed By: #### L 501.2300, L500.2500, L100.0100, L501.5200 ####[facility] [address] [place], [address] CO2 [Moles/Vol] 24.0 mmol/L Normal 21.0-32.0 [facility] Comment on above: Performed By: #### L 501.2300, L500.2500, L100.0100, L501.5200 ####[facility] [address] [place], [address] Creatinine [Mass/Vol] 1.10 mg/dL Normal 0.70-1.20 [facility] Comment on above: Performed By: #### L 501.2300, L500.2500, L100.0100, L501.5200 ####[facility] [address] [place], [address] ECRCL 56.14 ml/min Normal 50-250 [facility] Comment on above: Performed By: #### L 501.2300, L500.2500, L100.0100, L501.5200 ####[facility] [address] [place], [address] GAP 12 Normal 5-15 [facility] Comment on above: Performed By: #### L 501.2300, L500.2500, L100.0100, L501.5200 ####[facility] [address] [place], [address] GFR/1.73 sq M.predicted among non-blacks MDRD (S/P/Bld) [Vol rate/Area] 70 mL/min/{1.73_m2} Normal >60 [facility] Comment on above: Result Comment: mL/m in/1.73m2 CKD-EPI Creatinine Equation (2020) Performed By: #### L 501.2300, L500.2500, L100.0100, L501.5200 ####[facility] [address] [place], [address] Glucose [Mass/Vol] 97 mg/dL Normal 70-99 [facility] Comment on above: Performed By: #### L 501.2300, L500.2500, L100.0100, L501.5200 ####[facility] [address] [place], [address] Potassium [Moles/Vol] 4.1 mmol/L Normal 3.3-5.1 [facility] Comment on above: Performed By: #### L 501.2300, L500.2500, L100.0100, L501.5200 ####[facility] [address] [place], [address] Sodium [Moles/Vol] 142 mmol/L Normal 133-145 [facility] Comment on above: Performed By: #### L 501.2300, L500.2500, L100.0100, L501.5200 ####[facility] [address] [place], [address] Urea nitrogen [Mass/Vol] 22 mg/dL High 4-19 [facility] Comment on above: Performed By: #### L 501.2300, L500.2500, L100.0100, L501.5200 ####[facility] [address] [place], [address] Basophil percentageOrdered B y: Lisha Talamantes on 12-15-2024 Basophils/100 WBC (Bld) 0.2 % 0-1 [facility] CBC W/Diff, Automatedon 11-18 Absolute Lymph 0.82 X10 3/uL Low 0.83-4.51 [facility] Comment on above: Performed By: #### L 501.2300, L500.2500, L100.0100, L501.5200 ####[facility] [address] [place], [address] Absolute Neut 7.0 X10 3/uL Normal 2.0-7.7 [facility] Comment on above: Performed By: #### L 501.2300, L500.2500, L100.0100, L501.5200 ####[facility] [address] [place], [address] Basophils/100 WBC (Bld) 0.2 % Normal 0-1 [facility] Comment on above: Performed By: #### L 501.2300, L500.2500, L100.0100, L501.5200 ####[facility] [address] [place], [address] Eosinophils/100 WBC (Bld) 0.0 % Normal 0-5 [facility] Comment on above: Performed By: #### L 501.2300, L500.2500, L100.0100, L501.5200 ####[facility] [address] [place], [address] Erythrocyte distribution width (RBC) [Ratio] 13.8 % Normal 11.6-14.6 [facility] Comment on above: Performed By: #### L 501.2300, L500.2500, L100.0100, L501.5200 ####[facility] [address] [place], [address] Hematocrit (Bld) [Volume fraction] 35.6 % Low 40-54 [facility] Comment on above: Performed By: #### L 501.2300, L500.2500, L100.0100, L501.5200 ####[facility] [address] [place], [address] Hemoglobin (Bld) [Mass/Vol] 11.3 g/dL Low 13.0-16.5 [facility] Comment on above: Performed By: #### L 501.2300, L500.2500, L100.0100, L501.5200 ####[facility] [address] [place], [address] IG% 0.400 Normal 0.0-0.9 [facility] Comment on above: Result Comment: IG% - Immature Granulocytes (promyelocytes, myelocytes andmetamyelocytes) > 1% indicates that a LEFT SHIFT is Present. Performed By: #### L 501.2300, L500.2500, L100.0100, L501.5200 ####[facility] [address] [place], [address] Lymphocytes/100 WBC (Bld) 9.8 % Low 19-41 [facility] Comment on above: Performed By: #### L 501.2300, L500.2500, L100.0100, L501.5200 ####[facility] [address] [place], [address] MCH (RBC) [Entitic mass] 28.2 pg Normal 27.0-32.0 [facility] Comment on above: Performed By: #### L 501.2300, L500.2500, L100.0100, L501.5200 ####[facility] [address] [place], [address] MCHC (RBC) [Mass/Vol] 31.7 g/dL Low 32-36 [facility] Comment on above: Performed By: #### L 501.2300, L500.2500, L100.0100, L501.5200 ####[facility] [address] [place], [address] MCV (RBC) [Entitic vol] 88.8 fL Normal 80-94 [facility] Comment on above: Performed By: #### L 501.2300, L500.2500, L100.0100, L501.5200 ####[facility] [address] [place], [address] Monocytes/100 WBC (Bld) 6.3 % Normal 0-10 [facility] Comment on above: Performed By: #### L 501.2300, L500.2500, L100.0100, L501.5200 ####[facility] [address] [place], [address] Neutrophils/100 WBC (Bld) 83.3 % High 47-70 [facility] Comment on above: Performed By: #### L 501.2300, L500.2500, L100.0100, L501.5200 ####[facility] [address] [place], [address] Nucleated RBC (Bld) [#/Vol] 0 10*3/uL Normal 0-5 [facility] Comment on above: Performed By: #### L 501.2300, L500.2500, L100.0100, L501.5200 ####[facility] [address] [place], [address] Platelet mean volume (Bld) [Entitic vol] 10.0 fL Normal 6.2-12.0 [facility] Comment on above: Performed By: #### L 501.2300, L500.2500, L100.0100, L501.5200 ####[facility] [address] [place], [address] Platelets (Bld) [#/Vol] 329 10*3/uL Normal 150-450 [facility] Comment on above: Performed By: #### L 501.2300, L500.2500, L100.0100, L501.5200 ####[facility] [address] [place], [address] RBC (Bld) [#/Vol] 4.01 10*6/uL Low 4.6-6.2 [facility] Comment on above: Performed By: #### L 501.2300, L500.2500, L100.0100, L501.5200 ####[facility] [address] [place], [address] RDW SD 44.9 fl High 35.1-43.9 [facility] Comment on above: Performed By: #### L 501.2300, L500.2500, L100.0100, L501.5200 ####[facility] [address] [place], [address] WBC (Bld) [#/Vol] 8.4 10*3/uL Normal 4.4-11.0 [facility] Comment on above: Performed By: #### L 501.2300, L500.2500, L100.0100, L501.5200 ####[facility] [address] [place], [address] Eosinophil percentageOrdered By: Lisha Talamantes on 12-15-2024 [...] 12-15-2024 Magnesium [Mass/Vol] 2.0 mg/dL Normal 1.5-2.2 [facility] Comment on above: Performed By: #### L 501.2300, L500.2500, L100.0100, L501.5200 ####[facility] [address] [place], [place], [id number] Magnesium measurement (mass/ volume)Ordered By: Lisha Talamantes [...] 12-15-2024 Phosphate [Mass/Vol] 3.3 mg/dL Normal 2.7-4.5 [facility] Comment on above: Performed By: #### L 501.2300, L500.2500, L100.0100, L501.5200 ####[facility] [address] [place], [address] Platelet countOrdered By: Sierra Talamantes on 12-15-2024 Platelets (Bld) [#/Vol] 329 10*3/uL 150-450 [facility] RBC Auto (Bld) [#/Vol]Ordere d By: Lisha Talamantes on 12-15-2024 RBC (Bld) [#/Vol] 4.01 10*6/uL Low 4.6-6.2 [facility] White blood cell (WBC) count Ordered By: Lisha Talamantes on 12-15-2024 WBC (Bld) [#/Vol] 8.4 10*3/uL 4.4-11.0 [facility] Bilirubin, totalOrdered By: Shilpa Contreras on 12-14-2024 Bilirubin [Mass/Vol] mg/dL 0.00-1.30 [facility] CBC W/Diff, Automatedon 11-18 Absolute Lymph 0.65 X10 3/uL Low 0.83-4.51 [facility] Comment on above: Performed By: #### L 100.0100, L500.4050, L300.3900 ####[facility] [address] [place], [address] Absolute Neut 3.4 X10 3/uL Normal 2.0-7.7 [facility] Comment on above: Performed By: #### L 100.0100, L500.4050, L300.3900 ####[facility] [address] [place], [address] Basophils/100 WBC (Bld) 0.2 % Normal 0-1 [facility] Comment on above: Performed By: #### L 100.0100, L500.4050, L300.3900 ####[facility] [address] [place], [address] Eosinophils/100 WBC (Bld) 0.0 % Normal 0-5 [facility] Comment on above: Performed By: #### L 100.0100, L500.4050, L300.3900 ####[facility] [address] [place], [address] Erythrocyte distribution width (RBC) [Ratio] 13.7 % Normal 11.6-14.6 [facility] Comment on above: Performed By: #### L 100.0100, L500.4050, L300.3900 ####[facility] [address] [place], [address] Hematocrit (Bld) [Volume fraction] 33.7 % Low 40-54 [facility] Comment on above: Performed By: #### L 100.0100, L500.4050, L300.3900 ####[facility] [address] [place], [address] Hemoglobin (Bld) [Mass/Vol] 10.6 g/dL Low 13.0-16.5 [facility] Comment on above: Performed By: #### L 100.0100, L500.4050, L300.3900 ####[facility] [address] [place], [address] IG% 0.200 Normal 0.0-0.9 [facility] Comment on above: Result Comment: IG% - Immature Granulocytes (promyelocytes, myelocytes andmetamyelocytes) > 1% indicates that a LEFT SHIFT is Present. Performed By: #### L 100.0100, L500.4050, L300.3900 ####[facility] [address] [place], [address] Lymphocytes/100 WBC (Bld) 15.0 % Low 19-41 [facility] Comment on above: Performed By: #### L 100.0100, L500.4050, L300.3900 ####[facility] [address] [place], [address] MCH (RBC) [Entitic mass] 27.8 pg Normal 27.0-32.0 [facility] Comment on above: Performed By: #### L 100.0100, L500.4050, L300.3900 ####[facility] [address] [place], [address] MCHC (RBC) [Mass/Vol] 31.5 g/dL Low 32-36 [facility] Comment on above: Performed By: #### L 100.0100, L500.4050, L300.3900 ####[facility] [address] [place], [address] MCV (RBC) [Entitic vol] 88.5 fL Normal 80-94 [facility] Comment on above: Performed By: #### L 100.0100, L500.4050, L300.3900 ####[facility] [address] [place], [address] Monocytes/100 WBC (Bld) 5.3 % Normal 0-10 [facility] Comment on above: Performed By: #### L 100.0100, L500.4050, L300.3900 ####[facility] [address] [place], [address] Neutrophils/100 WBC (Bld) 79.3 % High 47-70 [facility] Comment on above: Performed By: #### L 100.0100, L500.4050, L300.3900 ####[facility] [address] [place], [address] Nucleated RBC (Bld) [#/Vol] 0 10*3/uL Normal 0-5 [facility] Comment on above: Performed By: #### L 100.0100, L500.4050, L300.3900 ####[facility] [address] [place], [address] Platelet mean volume (Bld) [Entitic vol] 10.1 fL Normal 6.2-12.0 [facility] Comment on above: Performed By: #### L 100.0100, L500.4050, L300.3900 ####[facility] [address] [place], [address] Platelets (Bld) [#/Vol] 306 10*3/uL Normal 150-450 [facility] Comment on above: Performed By: #### L 100.0100, L500.4050, L300.3900 ####[facility] [address] [place], [address] RBC (Bld) [#/Vol] 3.81 10*6/uL Low 4.6-6.2 [facility] Comment on above: Performed By: #### L 100.0100, L500.4050, L300.3900 ####[facility] [address] [place], [address] RDW SD 44.5 fl High 35.1-43.9 [facility] Comment on above: Performed By: #### L 100.0100, L500.4050, L300.3900 ####[facility] [address] [place], [address] WBC (Bld) [#/Vol] 4.3 10*3/uL Low 4.4-11.0 [facility] Comment on above: Performed By: #### L 100.0100, L500.4050, L300.3900 ####[facility] [address] [place], [address] Comprehensive Metabolic Prof ilon 12-14-2024 ALK PHOS 70 U/L Normal 40-129 [facility] Comment on above: Performed By: #### L 100.0100, L500.4050, L300.3900 ####[facility] [address] [place], [address] AST [Catalytic activity/Vol] 18 U/L Normal <=37 [facility] Comment on above: Performed By: #### L 100.0100, L500.4050, L300.3900 ####[facility] [address] [place], [address] BUN/CRE 12.3 RATIO Normal 10-20 [facility] Comment on above: Performed By: #### L 100.0100, L500.4050, L300.3900 ####[facility] [address] [place], [address] Calcium [Mass/Vol] 9.5 mg/dL Normal 7.6-11.0 [facility] Comment on above: Performed By: #### L 100.0100, L500.4050, L300.3900 ####[facility] [address] [place], [address] Chloride [Moles/Vol] 105 mmol/L Normal 98-108 [facility] Comment on above: Performed By: #### L 100.0100, L500.4050, L300.3900 ####[facility] [address] [place], [address] CO2 [Moles/Vol] 24.4 mmol/L Normal 21.0-32.0 [facility] Comment on above: Performed By: #### L 100.0100, L500.4050, L300.3900 ####[facility] [address] [place], [address] Creatinine [Mass/Vol] 1.04 mg/dL Normal 0.70-1.20 [facility] Comment on above: Performed By: #### L 100.0100, L500.4050, L300.3900 ####[facility] [address] [place], [address] ECRCL 59.38 ml/min Normal 50-250 [facility] Comment on above: Performed By: #### L 100.0100, L500.4050, L300.3900 ####[facility] [address] [place], [address] GAP 13 Normal 5-15 [facility] Comment on above: Performed By: #### L 100.0100, L500.4050, L300.3900 ####[facility] [address] [place], [address] GFR/1.73 sq M.predicted among non-blacks MDRD (S/P/Bld) [Vol rate/Area] 75 mL/min/{1.73_m2} Normal >60 [facility] Comment on above: Result Comment: mL/m in/1.73m2 CKD-EPI Creatinine Equation (2020) Performed By: #### L 100.0100, L500.4050, L300.3900 ####[facility] [address] [place], [address] Glucose [Mass/Vol] 129 mg/dL High 70-99 [facility] Comment on above: Performed By: #### L 100.0100, L500.4050, L300.3900 ####[facility] [address] [place], [address] Potassium [Moles/Vol] 3.8 mmol/L Normal 3.3-5.1 [facility] Comment on above: Performed By: #### L 100.0100, L500.4050, L300.3900 ####[facility] [address] [place], [address] Sodium [Moles/Vol] 143 mmol/L Normal 133-145 [facility] Comment on above: Performed By: #### L 100.0100, L500.4050, L300.3900 ####[facility] [address] [place], [address] T BILI < 0.15 Normal 0.00-1.30 [facility] Comment on above: Performed By: #### L 100.0100, L500.4050, L300.3900 ####[facility] [address] [place], [address] T PROT 6.6 g/dL Normal 5.9-8.4 [facility] Comment on above: Performed By: #### L 100.0100, L500.4050, L300.3900 ####[facility] [address] [place], [address] Urea nitrogen [Mass/Vol] 13 mg/dL Normal 4-19 [facility] Comment on above: Performed By: #### L 100.0100, L500.4050, L300.3900 ####[facility] [address] [place], [address] No Panel InformationOrdered By: Shilpa Contreras on 12-14-2024 18 U/L <38 [facility] Prothrombin Time w/INRon INR Coag (PPP) [Relative time] 1.0 {INR} Normal [facility] Comment on above: Performed By: #### L 100.0100, L500.4050, L300.3900 ####[facility] [address] [place], [address] PT Coag (PPP) [Time] 13.5 s Normal 11.7-14.9 [facility] Comment on above: Performed By: #### L 100.0100, L500.4050, L300.3900 ####[facility] [address] [place], [address] Prothrombin timeOrdered By: Shilpa Contreras on 12-14-2024 PT Coag (PPP) [Time] 13.5 s 11.7-14.9 [facility] RESPIRATORY PANEL MOLECULARo n 12-14-2024 RP PANEL Normal [facility] Comment on above: Performed By: #### M 100.638 ####[facility] [address] [place], [address] Serum globulin measurementOr dered By: Shilpa Contreras on 12-14-2024 Globulin (S) [Mass/Vol] 2.5 g/dL Normal 2.2-4.2 [facility] Comment on above: Performed By: #### L 100.0100, L500.4050, L300.3900 ####[facility] [address] [place], [address] Serum or plasma alanine saul otransferase (ALT) measurementOrdered By: Shilpa Contreras on 12-14-2024 ALT [Catalytic activity/Vol] 16 U/L Normal <=46 [facility] Comment on above: Performed By: #### L 100.0100, L500.4050, L300.3900 ####[facility] [address] [place], [address] Serum or plasma albumin luis urement (mass/volume)Ordered By: Shilpa Contreras on 12-14-2024 Albumin [Mass/Vol] 4.0 g/dL Normal 3.4-4.8 [facility] Comment on above: Performed By: #### L 100.0100, L500.4050, L300.3900 ####[facility] [address] [place], [address] Serum or plasma albumin/glob ulin mass ratioOrdered By: Shilpa Ben on 12-14-2024 Albumin/Globulin [Mass ratio] 1.6 {ratio} Normal 0.9-2.4 [facility] Comment on above: Performed By: #### L 100.0100, L500.4050, L300.3900 ####[facility] [address] [place], [address] Serum or plasma alkaline kathleen sphatase measurementOrdered By: Shilpa Ben on 12-14-2024 ALP [Catalytic activity/Vol] 70 U/L 40-129 [facility] Total proteinOrdered By: Roverto donovan Contreras on 12-14-2024 Protein [Mass/Vol] 6.6 g/dL 5.9-8.4 [facility] Absolute lymphocyte countOrd ered By: Remus Ungkevin on 12-13-2024 Lymphocytes Auto (Unsp spec) [#/Vol] 1.16 10*3/uL 0.83-4.51 [facility] Absolute neutrophil countOrd ered By: Remus Ungur on 12-13-2024 Neutrophils (Bld) [#/Vol] 4.0 10*3/uL 2.0-7.7 [facility] Anion gap in Serum or Plasma Ordered By: Remus Aaorn on 12-13-2024 Anion gap [Moles/Vol] 13 mmol/L 5-15 [facility] Automated lymphocyte count a s percentage of total leukocytesOrdered By: Remus Walker on 12-13-2024 Lymphocytes/100 WBC Auto (Unsp spec) 19.5 % 19-41 [facility] BUN/creatinine ratioOrdered By: Charis Walker on 12-13-2024 Urea nitrogen/Creatinine [Mass ratio] 11.0 mg/mg 10-20 [facility] Basic Metabolic Profile (BMP )on 12-13-2024 BUN/CRE 11.0 RATIO Normal -20 [facility] Comment on above: Performed By: #### L 500.2500, L100.0100 ####[facility] [address] [place], [address] Calcium [Mass/Vol] 9.7 mg/dL Normal 7.6-11.0 [facility] Comment on above: Performed By: #### L 500.2500, L100.0100 ####[facility] [address] [place], [address] Chloride [Moles/Vol] 104 mmol/L Normal 98-108 [facility] Comment on above: Performed By: #### L 500.2500, L100.0100 ####[facility] [address] [place], [address] CO2 [Moles/Vol] 24.4 mmol/L Normal 21.0-32.0 [facility] Comment on above: Performed By: #### L 500.2500, L100.0100 ####[facility] [address] [place], [address] Creatinine [Mass/Vol] 1.11 mg/dL Normal 0.70-1.20 [facility] Comment on above: Performed By: #### L 500.2500, L100.0100 ####[facility] [address] [place], [address] ECRCL 55.63 ml/min Normal 50-250 [facility] Comment on above: Performed By: #### L 500.2500, L100.0100 ####[facility] [address] [place], [address] GAP 13 Normal 5-15 [facility] Comment on above: Performed By: #### L 500.2500, L100.0100 ####[facility] [address] [place], [address] GFR/1.73 sq M.predicted among non-blacks MDRD (S/P/Bld) [Vol rate/Area] 69 mL/min/{1.73_m2} Normal >60 [facility] Comment on above: Result Comment: mL/m in/1.73m2 CKD-EPI Creatinine Equation (2020) Performed By: #### L 500.2500, L100.0100 ####[facility] [address] [place], [address] Glucose [Mass/Vol] 102 mg/dL High 70-99 [facility] Comment on above: Performed By: #### L 500.2500, L100.0100 ####[facility] [address] [place], [address] Potassium [Moles/Vol] 3.7 mmol/L Normal 3.3-5.1 [facility] Comment on above: Performed By: #### L 500.2500, L100.0100 ####[facility] [address] [place], [address] Sodium [Moles/Vol] 141 mmol/L Normal 133-145 [facility] Comment on above: Performed By: #### L 500.2500, L100.0100 ####[facility] [address] [place], [address] Urea nitrogen [Mass/Vol] 12 mg/dL Normal 4-19 [facility] Comment on above: Performed By: #### L 500.2500, L100.0100 ####[facility] [address] [place], [address] Basophil percentageOrdered B y: Remus Ungur on 12-13-2024 Basophils/100 WBC (Bld) 1.0 % 0-1 [facility] Blood cultureOrdered By: Rem us Ungur on [...] L 500.2500, L100.0100 ####[facility] [address] [place], [address] Absolute Neut 4.0 X10 3/uL Normal 2.0-7.7 [facility] Comment on above: Performed By: #### L 500.2500, L100.0100 ####[facility] [address] [place], [address] Basophils/100 WBC (Bld) 1.0 % Normal 0-1 [facility] Comment on above: Performed By: #### L 500.2500, L100.0100 ####[facility] [address] [place], [address] Eosinophils/100 WBC (Bld) 3.0 % Normal 0-5 [facility] Comment on above: Performed By: #### L 500.2500, L100.0100 ####[facility] [address] [place], [address] Erythrocyte distribution width (RBC) [Ratio] 13.7 % Normal 11.6-14.6 [facility] Comment on above: Performed By: #### L 500.2500, L100.0100 ####[facility] [address] [place], [address] Hematocrit (Bld) [Volume fraction] 37.5 % Low 40-54 [facility] Comment on above: Performed By: #### L 500.2500, L100.0100 ####[facility] [address] [place], [address] Hemoglobin (Bld) [Mass/Vol] 11.5 g/dL Low 13.0-16.5 [facility] Comment on above: Performed By: #### L 500.2500, L100.0100 ####[facility] [address] [place], [address] IG% 0.300 Normal 0.0-0.9 [facility] Comment on above: Result Comment: IG% - Immature Granulocytes (promyelocytes, myelocytes andmetamyelocytes) > 1% indicates that a LEFT SHIFT is Present. Performed By: #### L 500.2500, L100.0100 ####[facility] [address] [place], [address] Lymphocytes/100 WBC (Bld) 19.5 % Normal 19-41 [facility] Comment on above: Performed By: #### L 500.2500, L100.0100 ####[facility] [address] [place], [address] MCH (RBC) [Entitic mass] 27.7 pg Normal 27.0-32.0 [facility] Comment on above: Performed By: #### L 500.2500, L100.0100 ####[facility] [address] [place], [address] MCHC (RBC) [Mass/Vol] 30.7 g/dL Low 32-36 [facility] Comment on above: Performed By: #### L 500.2500, L100.0100 ####[facility] [address] [place], [address] MCV (RBC) [Entitic vol] 90.4 fL Normal 80-94 [facility] Comment on above: Performed By: #### L 500.2500, L100.0100 ####[facility] [address] [place], [address] Monocytes/100 WBC (Bld) 8.9 % Normal 0-10 [facility] Comment on above: Performed By: #### L 500.2500, L100.0100 ####[facility] [address] [place], [address] Neutrophils/100 WBC (Bld) 67.3 % Normal 47-70 [facility] Comment on above: Performed By: #### L 500.2500, L100.0100 ####[facility] [address] [place], [address] Nucleated RBC (Bld) [#/Vol] 0 10*3/uL Normal 0-5 [facility] Comment on above: Performed By: #### L 500.2500, L100.0100 ####[facility] [address] [place], [address] Platelet mean volume (Bld) [Entitic vol] 9.7 fL Normal 6.2-12.0 [facility] Comment on above: Performed By: #### L 500.2500, L100.0100 ####[facility] [address] [place], [address] Platelets (Bld) [#/Vol] 299 10*3/uL Normal 150-450 [facility] Comment on above: Performed By: #### L 500.2500, L100.0100 ####[facility] [address] [place], [address] RBC (Bld) [#/Vol] 4.15 10*6/uL Low 4.6-6.2 [facility] Comment on above: Performed By: #### L 500.2500, L100.0100 ####[facility] [address] [place], [address] RDW SD 44.8 fl High 35.1-43.9 [facility] Comment on above: Performed By: #### L 500.2500, L100.0100 ####[facility] [address] [place], [address] WBC (Bld) [#/Vol] 5.9 10*3/uL Normal 4.4-11.0 [facility] Comment on above: Performed By: #### L 500.2500, L100.0100 ####[facility] [address] [place], [address] CO2 (BldV) [Moles/Vol]Ordere d By: Shilpa Contreras [...] on 12-13-2024 Chloride [Moles/Vol] 104 mmol/L 98-108 [facility] Emergency Department Summary on 12-13-2024 [...] Hospital[place] 12-13-2024 H&P Exam - Hospitalist Normal [facility] Hematocrit Auto (Bld) [Volum e fraction]Ordered By: Charis Walker on 12-13-2024 Hematocrit (Bld) [Volume fraction] 37.5 % Low 40-54 [facility] Hemoglobin measurementOrdere d By: Charis Walker [...] the patient. Performed By: #### L 509.7001 ####[facility] [address] [facility] [place], [address] M100.678on 12-13-2024 M100.678 Pending SARS-CoV-2 (COVID 19) Negative INFLUENZA A Negative INFLUENZA B Negative RSV PCR Negative Normal [facility] Comment on above: Performed By: #### M 100.678 ####[facility] [address] [place], [address] MCV (mean corpuscular volume ) determinationOrdered By: Charis Walker on 12-13-2024 MCV (RBC) [Entitic vol] 90.4 fL 80-94 [facility] Mean corpuscular hemoglobin (MCH) determinationOrdered By: Charis Walker on 12-13-2024 MCH (RBC) [Entitic mass] 27.7 pg 27.0-32.0 [facility] Mean corpuscular hemoglobin concentration (MCHC) determinationOrdered By: Charis Walker on 12-13-2024 MCHC (RBC) [Mass/Vol] 30.7 g/dL Low 32-36 [facility] Mean platelet volume determi nationOrdered By: Charis Walker on 12-13-2024 Platelet mean volume (Bld) [Entitic vol] 9.7 fL 6.2-12.0 [facility] Monocyte percentageOrdered B y: Charis Walker on 12-13-2024 Monocytes/100 WBC (Bld) 8.9 % 0-10 [facility] Neutrophil percentageOrdered By: Charis Walker on 12-13-2024 Neutrophils/100 WBC (Bld) 67.3 % 47-70 [facility] No Panel InformationOrdered By: Shilpa Contreras on 12-13-2024 Blood Gas Sample Site Not entered [facility] Blood Gas Specimen Type LASHAE [facility] Oxygen Delivery Device Cannula [facility] LASHAE [facility] [...] Comment on above: Performed By: #### L 455.6030 ####[facility] [address] [place], [place], [address] PT Coag (PPP) [Time] 12.5 s Normal 11.7-14.9 [facility] Comment on above: Performed By: #### L 300.3900 ####[facility] [address] [place], [place], [id number] Prothrombin timeOrdered By: Charis Walker on 12-13-2024 PT Coag (PPP) [Time] 12.5 s 11.7-14.9 [facility] RBC Auto (Bld) [#/Vol]Ordere d By: Charis Walker on 12-13-2024 RBC (Bld) [#/Vol] 4.15 10*6/uL Low 4.6-6.2 [facility] Respiratory pathogens detect ion panel by molecular detection methodOrdered By: Shilpa Contreras on 12-13-2024 Respiratory pathogens DNA and RNA panel ALEENA+probe (Resp) [facility] Serum creatinine measurement (mass/volume)Ordered By: Charis Walker on 12-13-2024 Creatinine [Mass/Vol] 1.11 mg/dL 0.70-1.20 [facility] Serum glucose measurement (m ass/volume)Ordered By: Charis Walker on 12-13-2024 Glucose [Mass/Vol] 102 mg/dL High 70-99 [facility] Serum or plasma calcium luis urement (mass/volume)Ordered By: [facility] on 12-13-2024 Calcium [Mass/Vol] 9.7 mg/dL 7.6-11.0 [facility] Serum or plasma urea nitroge n measurement (mass/volume)Ordered By: Charis Walker on 12-13-2024 Urea nitrogen [Mass/Vol] 12 mg/dL 4-19 [facility] Sodium levelOrdered By: Nelson Walker on 12-13-2024 Sodium [Moles/Vol] 141 mmol/L 133-145 [facility] Venous Blood Gason 5 Blood Gas Type LASHAE Normal [facility] Comment on above: Performed By: #### L 9000.0810 ####[facility] [address] [place], [place], [address] CO2 [Moles/Vol] 28 mmol/L Normal 23-33 [facility] Comment on above: Performed By: #### L 9000.0810 ####[facility] [address] [place], [address] FI02 4.0 Normal [facility] Comment on above: Performed By: #### L 9000.0810 ####[facility] [address] [place], [address] HCO3 (Bld) [Moles/Vol] 26 mmol/L Normal 22-26 [facility] Comment on above: Performed By: #### L 9000.0810 ####[facility] [address] [place], [address] O2 Delivery Dev Cannula Normal [facility] Comment on above: Performed By: #### L 9000.0810 ####[facility] [address] [place], [address] SITE Not entered Normal [facility] Comment on above: Performed By: #### L 9000.0810 ####[facility] [address] [place], [address] VBG BE 2 mmol/L Normal -1.0-3.5 [facility] Comment on above: Performed By: #### L 9000.0810 ####[facility] [address] [place], [address] VBG pCO2 42.7 mmHg Normal 41-51 [facility] Comment on above: Performed By: #### L 9000.0810 ####[facility] [address] [place], [address] VBG pH 7.40 Normal 7.32-7.42 [facility] Comment on above: Performed By: #### L 9000.0810 ####[facility] [address] [place], [address] VBG PO2 56 mmHg High 25-40 [facility] Comment on above: Performed By: #### L 9000.0810 ####[facility] [address] [place], [place], [address] VBG SO2 89 High 50-70 [facility] Comment on above: Performed By: #### L 9000.0810 ####[facility] [address] [place], [place], [address] Venous blood base excess arlyn surementOrdered By: Shilpa Contreras on 12-13-2024 Base excess Calc (BldV) [Moles/Vol] 2 mmol/L -1.0-3.5 [facility] Venous blood bicarbonate arlyn surementOrdered By: Shilpa Contreras on 12-13-2024 HCO3 (Bld) [Moles/Vol] 26 mmol/L 22-26 [facility] Venous blood oxygen saturati on [...] 12-13-2024 WBC (Bld) [#/Vol] 5.9 10*3/uL 4.4-11.0 [facility] CBC W Auto Differential pane l (Bld)on 12-12-2024 Basophils (Bld) [#/Vol] 0.09 10*3/uL [facility] Basophils/100 WBC (Bld) 1.5 % C [facility] Differential cell count method Nom (Bld) Auto [facility] Eosinophils (Bld) [#/Vol] 0.22 10*3/uL [facility] Eosinophils/100 WBC (Bld) 3.7 % [facility] Erythrocyte distribution width (RBC) [Ratio] 13.8 % 11.5 - 15.0 % [facility] Hematocrit (Bld) [Volume fraction] 38.3 % Low 39.0 - 51.0 % [facility] Hemoglobin (Bld) [Mass/Vol] 11.7 g/dL Low 13.0 - 17.0 g/dL [facility] Immature granulocytes (Bld) [#/Vol] [facility] Immature granulocytes/100 WBC (Bld) 0.3 % [facility] Interpretation and review of laboratory results Abnormal [facility] Lymphocytes (Bld) [#/Vol] 0.8 10*3/uL Low [facility] Lymphocytes/100 WBC (Bld) 13.6 % [facility] MCH (RBC) [Entitic mass] 27.9 pg 26. 0 - 34.0 pg [facility] MCHC (RBC) [Mass/Vol] 30.5 g/dL 30.5 - 36.0 g/dL [facility] MCV (RBC) [Entitic vol] 91.4 fL 80.0 - 100.0 fL [facility] Monocytes (Bld) [#/Vol] 0.51 10*3/uL [facility] Monocytes/100 WBC (Bld) 8.7 % C [facility] Neutrophils (Bld) [#/Vol] 4.25 10*3/uL [facility] Neutrophils/100 WBC (Bld) 72.2 % [facility] Nucleated RBC (Bld) [#/Vol] [facility] Nucleated RBC/100 WBC (Bld) [Ratio] 0 % /100 WBC [facility] Platelet mean volume (Bld) [Entitic vol] 10.5 fL 9.0 - 12.7 fL [facility] Platelets (Bld) [#/Vol] 310 10*3/uL [facility] RBC (Bld) [#/Vol] 4.19 10*6/uL Low 4.20 - 6.0 0 m/uL [facility] WBC (Bld) [#/Vol] 5.89 10*3/uL [facility] Anion gap in Serum or Plasma Ordered By: Carla Crane on 12-02-2024 Anion gap [Moles/Vol] 11 mmol/L -15 [facility] BUN/creatinine ratioOrdered By: Carla Crane on 12-02-2024 Urea nitrogen/Creatinine [Mass ratio] 23.5 mg/mg High - [facility] Basic Metabolic Profile (BMP )on 12-02-2024 BUN/CRE 23.5 RATIO High - [facility] Comment on above: Order Comment: 307.2 Performed By: #### L 100.0500, L500.2500, L506.1001 ####[facility] [address] [place], [address] Calcium [Mass/Vol] 9.4 mg/dL Normal 7.6-11.0 [facility] Comment on above: Order Comment: 307.2 Performed By: #### L 100.0500, L500.2500, L506.1001 ####[facility] [address] [place], [address] Chloride [Moles/Vol] 104 mmol/L Normal 98-108 [facility] Comment on above: Order Comment: 307.2 Performed By: #### L 100.0500, L500.2500, L506.1001 ####[facility] [address] [place], [address] CO2 [Moles/Vol] 25.5 mmol/L Normal 21.0-32.0 [facility] Comment on above: Order Comment: 307.2 Performed By: #### L 100.0500, L500.2500, L506.1001 ####[facility] [address] [place], [address] Creatinine [Mass/Vol] 1.21 mg/dL High 0.70-1.20 [facility] Comment on above: Order Comment: 307.2 Performed By: #### L 100.0500, L500.2500, L506.1001 ####[facility] [address] [place], [address] GAP 11 Normal 5-15 [facility] Comment on above: Order Comment: 307.2 Performed By: #### L 100.0500, L500.2500, L506.1001 ####[facility] [address] [place], [address] GFR/1.73 sq M.predicted among non-blacks MDRD (S/P/Bld) [Vol rate/Area] 62 mL/min/{1.73_m2} Normal >60 [facility] Comment on above: Order Comment: 307.2 Result Comment: mL/m in/1.73m2 CKD-EPI Creatinine Equation (2020) Performed By: #### L 100.0500, L500.2500, L506.1001 ####[facility] [address] [place], [address] Glucose [Mass/Vol] 86 mg/dL Normal 70-99 [facility] Comment on above: Order Comment: 307.2 Performed By: #### L 100.0500, L500.2500, L506.1001 ####[facility] [address] [place], [address] Potassium [Moles/Vol] 4.1 mmol/L Normal 3.3-5.1 [facility] Comment on above: Order Comment: 307.2 Performed By: #### L 100.0500, L500.2500, L506.1001 ####[facility] [address] [place], [address] Sodium [Moles/Vol] 141 mmol/L Normal 133-145 [facility] Comment on above: Order Comment: 307.2 Performed By: #### L 100.0500, L500.2500, L506.1001 ####[facility] [address] [place], [address] Urea nitrogen [Mass/Vol] 28 mg/dL High 4-19 [facility] Comment on above: Order Comment: 307.2 Performed By: #### L 100.0500, L500.2500, L506.1001 ####[facility] [address] [place], [address] CBC-Complete Blood Cnt No Di ffon 12-02-2024 Erythrocyte distribution width (RBC) [Ratio] 13.2 % Normal 11.6-14.6 [facility] Comment on above: Order Comment: 307.2 Performed By: #### L 100.0500, L500.2500, L506.1001 ####[facility] [address] [place], [address] Hematocrit (Bld) [Volume fraction] 35.2 % Low 40-54 [facility] Comment on above: Order Comment: 307.2 Performed By: #### L 100.0500, L500.2500, L506.1001 ####[facility] [address] [place], [address] Hemoglobin (Bld) [Mass/Vol] 11.1 g/dL Low 13.0-16.5 [facility] Comment on above: Order Comment: 307.2 Performed By: #### L 100.0500, L500.2500, L506.1001 ####[facility] [address] [place], [address] MCH (RBC) [Entitic mass] 28.6 pg Normal 27.0-32.0 [facility] Comment on above: Order Comment: 307.2 Performed By: #### L 100.0500, L500.2500, L506.1001 ####[facility] [address] [place], [address] MCHC (RBC) [Mass/Vol] 31.5 g/dL Low 32-36 [facility] Comment on above: Order Comment: 307.2 Performed By: #### L 100.0500, L500.2500, L506.1001 ####[facility] [address] [place], [address] MCV (RBC) [Entitic vol] 90.7 fL Normal 80-94 [facility] Comment on above: Order Comment: 307.2 Performed By: #### L 100.0500, L500.2500, L506.1001 ####[facility] [address] [place], [address] Platelet mean volume (Bld) [Entitic vol] 10.2 fL Normal 6.2-12.0 [facility] Comment on above: Order Comment: 307.2 Performed By: #### L 100.0500, L500.2500, L506.1001 ####[facility] [address] [place], [address] Platelets (Bld) [#/Vol] 314 10*3/uL Normal 150-450 [facility] Comment on above: Order Comment: 307.2 Performed By: #### L 100.0500, L500.2500, L506.1001 ####[facility] [address] [place], [address] RBC (Bld) [#/Vol] 3.88 10*6/uL Low 4.6-6.2 [facility] Comment on above: Order Comment: 307.2 Performed By: #### L 100.0500, L500.2500, L506.1001 ####[facility] [address] [place], [address] RDW SD 43.6 fl Normal 35.1-43.9 [facility] Comment on above: Order Comment: 307.2 Performed By: #### L 100.0500, L500.2500, L506.1001 ####[facility] [address] [place], [address] WBC (Bld) [#/Vol] 5.1 10*3/uL Normal 4.4-11.0 [facility] Comment on above: Order Comment: 307.2 Performed By: #### L 100.0500, L500.2500, L506.1001 ####[facility] [address] [place], [address] Carbon dioxide, total [Moles /volume] in Central venous bloodOrdered By: Carla Crane on 12-02-2024 CO2 [Moles/Vol] 25.5 mmol/L 21.0-32.0 [facility] Chloride assayOrdered By: Wilfredo Crane on 12-02-2024 Chloride [Moles/Vol] 104 mmol/L 98-108 [facility] Erythrocyte distribution wid th ratioOrdered By: Carla Crane on 12-02-2024 Erythrocyte distribution width (RBC) [Ratio] 13.2 % 11.6-14.6 [facility] Erythrocyte distribution wid th standard deviationOrdered By: Carla Crane on 12-02-2024 Erythrocyte distribution width (RBC) [Ratio] 43.6 fl 35.1-43.9 [facility] Glomerular filtration rate ( GFR) estimation/1.73 sq m using serum, plasma, or whole bOrdered By: Carla Crane on 12-02-2024 GFR/1.73 sq M.predicted among non-blacks MDRD (S/P/Bld) [Vol rate/Area] 62 mL/min/{1.73_m2} >60 [facility] Comment on above: mL/min/1.73m2 CKD-EP I Creatinine Equation (2020) Hematocrit Auto (Bld) [Volum e fraction]Ordered By: Carla Crane on 12-02-2024 Hematocrit (Bld) [Volume fraction] 35.2 % Low 40-54 [facility] Hemoglobin measurementOrdere d By: Carla Crane on 12-02-2024 Hemoglobin (Bld) [Mass/Vol] 11.1 g/dL Low 13.0-16.5 [facility] MCV (mean corpuscular volume ) determinationOrdered By: Caral Crane on 12-02-2024 MCV (RBC) [Entitic vol] 90.7 fL 80-94 [facility] Mean corpuscular hemoglobin (MCH) determinationOrdered By: Carla Crane on 12-02-2024 MCH (RBC) [Entitic mass] 28.6 pg 27.0-32.0 [facility] Mean corpuscular hemoglobin concentration (MCHC) determinationOrdered By: Carla Crane on 12-02-2024 MCHC (RBC) [Mass/Vol] 31.5 g/dL Low 32-36 [facility] Mean platelet volume determi nationOrdered By: Carla Crane on 12-02-2024 Platelet mean volume (Bld) [Entitic vol] 10.2 fL 6.2-12.0 [facility] Platelet countOrdered By: Wilfredo Crane on 12-02-2024 Platelets (Bld) [#/Vol] 314 10*3/uL 150-450 [facility] Potassium measurement (mass/ volume)Ordered By: Carla Crane on 12-02-2024 Potassium (Unsp spec) [Mass/Vol] 4.1 mmol/L 3.3-5.1 [facility] RBC Auto (Bld) [#/Vol]Ordere d By: Carla Crane on 12-02-2024 RBC (Bld) [#/Vol] 3.88 10*6/uL Low 4.6-6.2 [facility] Serum creatinine measurement (mass/volume)Ordered By: Carla Crane on 12-02-2024 Creatinine [Mass/Vol] 1.21 mg/dL High 0.70-1.20 [facility] Serum glucose measurement (m ass/volume)Ordered By: Carla Crane on 12-02-2024 Glucose [Mass/Vol] 86 mg/dL 70-99 [facility] Serum or plasma calcium luis urement (mass/volume)Ordered By: Carla Crane on 12-02-2024 Calcium [Mass/Vol] 9.4 mg/dL 7.6-11.0 [facility] [facility] Serum or plasma urea nitroge n measurement (mass/volume)Ordered By: Carla Crane on 12-02-2024 Urea nitrogen [Mass/Vol] 28 mg/dL High 4-19 [facility] Sodium levelOrdered By: Luca Crane on 12-02-2024 Sodium [Moles/Vol] 141 mmol/L 133-145 [facility] Vitamin D,25 Hydroxyon 12-02 Vitamin D 25-OH 46.6 ng/mL Normal 30-100 [facility] Comment on above: Order Comment: 307.2 Result Comment: Teri min D StatusDeficiency: <20 ng/mL (50nmol/L)Insufficiency: 20-30 ng/mL (50-75 nmol/L)Sufficiency: 30-100 ng/mL (75-250 nmol/L)Toxicity: >100 ng/mL (>250 nmol/L) Performed By: #### L 100.0500, L500.2500, L506.1001 ####[facility] [address] [place], [place], [id number] White blood cell (WBC) count Ordered By: Carla Crane on 12-02-2024 WBC (Bld) [#/Vol] 5.1 10*3/uL 4.4-11.0 [facility] Calculated very low density lipoprotein (VLDL) cholesterol measurementOrdered By: Carla Crane on 11-05-2024 Calculated very low density lipoprotein (VLDL) cholesterol measurement 13 mg/dL 5-40 [facility] LDL calc ser/plasOrdered By: Carla Crane on 11-05-2024 Cholesterol in LDL [Mass/Vol] 63 mg/dL [facility] Comment on above: Fboywzvmpq=293-046 m g/dL & Higher Msep=632 mg/dL or greater Lipid Profileon 11-05-2024 CHOL:HDL 2.18 Normal [facility] Comment on above: Order Comment: 307.2 Performed By: #### L 500.4100, L506.1001 ####[facility] [address] [place], [place], [id number] Cholesterol [Mass/Vol] 140 mg/dL Normal <=200 [facility] Comment on above: Order Comment: 307.2 Result Comment: Chol esterol level, Desirable <200 mg/dLBorderline high cholesterol 200-239 mg/dLHigh cholesterol >=240 mg/dLRecommendations of the NCEP Adult Treatment Panel for thefollowing risk-cutoff thresholds for the [place] Americanpulation. Performed By: #### L 500.4100, L506.1001 ####[facility] [address] [place], [address] Cholesterol in HDL [Mass/Vol] 64 mg/dL Normal [...] L 500.4100, L506.1001 ####[facility] [address] [place], [address] Cholesterol in LDL [Mass/Vol] 63 mg/dL Normal [facility] Comment on above: Order Comment: 307.2 Result Comment: Bord siwdxv=526-950 mg/dL Higher Vcaw=362 mg/dL or greater Performed By: #### L 500.4100, L506.1001 ####[facility] [address] [place], [address] Cholesterol in VLDL [Mass/Vol] 13 mg/dL Normal 5-40 [facility] Comment on above: Order Comment: 307.2 Performed By: #### L 500.4100, L506.1001 ####[facility] [address] [place], [address] Triglyceride [Mass/Vol] 63 mg/dL Normal [facility] Comment on above: Order Comment: 307.2 Result Comment: The drugs N-Acetylcysteine and Metamizole may falselydepress this assay.Normal range: <150 mg/dLBorderline High: 150-199 mg/dLHigh: 200-499 mg/dLVery High: >500 mg/dL Performed By: #### L 500.4100, L506.1001 ####[facility] [address] [place], [address] Screening total cholesterol/ high density lipoprotein (HDL) cholesterol ratioOrdered By: Carla Crane on 11-05-2024 Cholesterol.total/Choles terol in HDL [Mass ratio] 2.18 {ratio} [facility] Serum or plasma cholesterol in HDL measurement (mass/volume)Ordered By: Carla Crane on 11-05-2024 Cholesterol in HDL [Mass/Vol] 64 mg/dL >40 [facility] Comment on above: National Cholesterol Education Program (NCEP) guidelines:<40 mg/dL: Low HDL-cholesterol (major risk factor for CHD)>= 60 mg/dL: High HDL-cholesterol (negative risk factor for CHD)HDL-cholesterol is affected by a number of factors, e.g. smoking, exercise, hormones, sex and age. Serum or plasma cholesterol measurement (mass/volume)Ordered By: Carla Crane on 11-05-2024 Cholesterol [Mass/Vol] 140 mg/dL <201 [facility] Comment on above: Cholesterol level, D esirable <200 mg/dLBorderline high cholesterol 200-239 mg/dLHigh cholesterol >=240 mg/dLRecommendations of the NCEP Adult Treatment Panel for the following risk-cutoff thresholds for the [place] population. Triglycerides measurementOrd ered By: Carla Crane on 11-05-2024 Triglyceride [Mass/Vol] 63 mg/dL <199 [...] ng/mL (>250 nmol/L) Performed By: #### L 500.9800, L506.1001 ####[facility] [address] [place], [address] Lipid Profileon 11-04-2024 CHOL Normal <=200 [facility] Comment on above: Order Comment: 307-2 Result Comment: MICHOACANO ENT REFUSED-NOTFIED NURSE Performed By: #### L 500.4100 ####[facility] [address] [place], [address] CHOL:HDL Normal [facility] Comment on above: Order Comment: 307-2 Result Comment: MICHOACANO ENT REFUSED-NOTFIED NURSE Performed By: #### L 500.4100 ####[facility] [address] [place], [address] CLDL Normal [facility] Comment on above: Order Comment: 307-2 Result Comment: MICHOACANO ENT REFUSED-NOTFIED NURSE Performed By: #### L 500.4100 ####[facility] [address] [place], [address] HDL Normal [facility] Comment on above: Order Comment: 307-2 Result Comment: MICHOACANO ENT REFUSED-NOTFIED NURSE Performed By: #### L 500.4100 ####[facility] [address] [place], [address] TRIG Normal [facility] Comment on above: Order Comment: 307-2 Result Comment: MICHOACANO ENT REFUSED-NOTFIED NURSE Performed By: #### L 500.4100 ####[facility] [address] [place], [address] VLDL Normal 5-40 [facility] Comment on above: Order Comment: 307-2 Result Comment: MICHOACANO ENT REFUSED-NOTFIED NURSE Performed By: #### L 500.4100 ####[facility] [address] [place], [address] Carbamazepine (Tegretol)on 0 10-16-2024 CARBAMAZEPINE 7.1 ug/mL Normal 4.0-12.0 [facility] Comment on above: Order Comment: 300 Performed By: #### L 501.7900 ####[facility] [address] [place], [address] Serum or plasma carbamazepin e level (mass/volume)Ordered By: Carla Crane on 10-16-2024 carBAMazepine [Mass/Vol] 7.1 ug/mL 4.0-12.0 [facility] Urine Cultureon 09-08-2024 URC Normal [facility] Comment on above: Performed By: #### M 100.2200, L400.0001 ####[facility] [address] [place], [address] Anion gap in Serum or Plasma Ordered By: Celia Toribio on 09-02-2024 Anion gap [Moles/Vol] 11 mmol/L 5-15 [facility] BUN/creatinine ratioOrdered By: Celia Toribio on 09-02-2024 Urea nitrogen/Creatinine [Mass ratio] 27.0 mg/mg High 10-20 [facility] Basic Metabolic Profile (BMP )on 09-02-2024 BUN/CRE 27.0 RATIO High [facility] Comment on above: Performed By: #### L 500.2500, L100.0100 ####[facility] [address] [place], [address] Calcium [Mass/Vol] 9.2 mg/dL Normal 7.6-11.0 [facility] Comment on above: Performed By: #### L 500.2500, L100.0100 ####[facility] [address] [place], [address] Chloride [Moles/Vol] 106 mmol/L Normal 98-108 [facility] Comment on above: Performed By: #### L 500.2500, L100.0100 ####[facility] [address] [place], [address] CO2 [Moles/Vol] 20.8 mmol/L Low 21.0-32.0 [facility] Comment on above: Performed By: #### L 500.2500, L100.0100 ####[facility] [address] [place], [address] Creatinine [Mass/Vol] 1.22 mg/dL High 0.70-1.20 [facility] Comment on above: Performed By: #### L 500.2500, L100.0100 ####[facility] [address] [place], [address] ECRCL 50.54 ml/min Normal 50-250 [facility] Comment on above: Performed By: #### L 500.2500, L100.0100 ####[facility] [address] [place], [address] GAP 11 Normal 5-15 [facility] Comment on above: Performed By: #### L 500.2500, L100.0100 ####[facility] [address] [place], [address] GFR/1.73 sq M.predicted among non-blacks MDRD (S/P/Bld) [Vol rate/Area] 62 mL/min/{1.73_m2} Normal >60 [facility] Comment on above: Result Comment: mL/m in/1.73m2 CKD-EPI Creatinine Equation (2020) Performed By: #### L 500.2500, L100.0100 ####[facility] [address] [place], [address] Glucose [Mass/Vol] 99 mg/dL Normal 70-99 [facility] Comment on above: Performed By: #### L 500.2500, L100.0100 ####[facility] [address] [place], [address] Potassium [Moles/Vol] 4.0 mmol/L Normal 3.3-5.1 [facility] Comment on above: Performed By: #### L 500.2500, L100.0100 ####[facility] [address] [place], [address] Sodium [Moles/Vol] 138 mmol/L Normal 133-145 [facility] Comment on above: Performed By: #### L 500.2500, L100.0100 ####[facility] [address] [place], [address] Urea nitrogen [Mass/Vol] 33 mg/dL High 4-19 [facility] Comment on above: Performed By: #### L 500.2500, L100.0100 ####[facility] [address] [place], [address] CBC W/Diff, Automatedon 08-17 Absolute Neut Normal 2.0-7.7 [facility] Comment on above: Result Comment: Canc elled via OM: MD Ordered Performed By: #### L 500.2500, L100.0100 ####[facility] [address] [place], [address] HCT Normal 40-54 [facility] Comment on above: Result Comment: Canc elled via OM: MD Ordered Performed By: #### L 500.2500, L100.0100 ####[facility] [address] [place], [address] HGB Normal 13.0-16.5 [facility] Comment on above: Result Comment: Canc elled via OM: MD Ordered Performed By: #### L 500.2500, L100.0100 ####[facility] [address] [place], [address] MCH Normal 27.0-32.0 [facility] Comment on above: Result Comment: Canc elled via OM: MD Ordered Performed By: #### L 500.2500, L100.0100 ####[facility] [address] [place], [address] MCHC Normal 32-36 [facility] Comment on above: Result Comment: Canc elled via OM: MD Ordered Performed By: #### L 500.2500, L100.0100 ####[facility] [address] [place], [address] MCV Normal 80-94 [facility] Comment on above: Result Comment: Canc elled via OM: MD Ordered Performed By: #### L 500.2500, L100.0100 ####[facility] [address] [place], [address] NEUT% Normal 47-70 [facility] Comment on above: Result Comment: Canc elled via OM: MD Ordered Performed By: #### L 500.2500, L100.0100 ####[facility] [address] [place], [address] PLT Normal 150-450 [facility] Comment on above: Result Comment: Canc elled via OM: MD Ordered Performed By: #### L 500.2500, L100.0100 ####[facility] [address] [place], [address] RBC Normal 4.6-6.2 [facility] Comment on above: Result Comment: Canc elled via OM: MD Ordered Performed By: #### L 500.2500, L100.0100 ####[facility] [address] [place], [address] RDW CV Normal 11.6-14.6 [facility] Comment on above: Result Comment: Canc elled via OM: MD Ordered Performed By: #### L 500.2500, L100.0100 ####[facility] [address] [place], [address] RDW SD Normal 35.1-43.9 [facility] Comment on above: Result Comment: Canc elled via OM: MD Ordered Performed By: #### L 500.2500, L100.0100 ####[facility] [address] [place], [address] WBC Normal 4.4-11.0 [facility] Comment on above: Result Comment: Bethanie luna via OM: Ordered Performed By: #### L 500.2500, L100.0100 ####[facility] [address] [place], [address] Carbon dioxide, total [Moles /volume] in Central venous bloodOrdered By: Celia Toribio on 09-02-2024 CO2 [Moles/Vol] 20.8 mmol/L Low 21.0-32.0 [facility] Chloride assayOrdered By: Yariel Toribio on 09-02-2024 Chloride [Moles/Vol] 106 mmol/L 98-108 [facility] Estimation of creatinine zeke aranceOrdered [...] on 09-02-2024 Potassium [Moles/Vol] 4.0 mmol/L 3.3-5.1 [facility] Potassium measurement (mass/ volume)Ordered By: Celia Toribio on 09-02-2024 Potassium (Unsp spec) [Mass/Vol] 4.0 mmol/L 3.3-5.1 [facility] Serum creatinine measurement (mass/volume)Ordered By: Celia Toribio on 09-02-2024 Creatinine [Mass/Vol] 1.22 mg/dL High 0.70-1.20 [facility] Serum glucose measurement (m ass/volume)Ordered By: Celia Toribio on 09-02-2024 Glucose [Mass/Vol] 99 mg/dL 70-99 [facility] Serum or plasma calcium luis urement (mass/volume)Ordered By: Celia Toribio on 09-02-2024 Calcium [Mass/Vol] 9.2 mg/dL 7.6-11.0 [facility] Serum or plasma urea nitroge n measurement (mass/volume)Ordered By: Celia Toribio on 09-02-2024 Urea nitrogen [Mass/Vol] 33 mg/dL High 4-19 [facility] Sodium levelOrdered By: Rigoberto Toribio on 09-02-2024 Sodium [Moles/Vol] 138 mmol/L 133-145 [facility] Absolute lymphocyte countOrd ered By: Celia Toribio on 09-01-2024 Lymphocytes Auto (Unsp spec) [#/Vol] 1.45 10*3/uL 0.83-4.51 [facility] Absolute neutrophil countOrd ered By: Celia Toribio on 09-01-2024 Neutrophils (Bld) [#/Vol] 4.9 10*3/uL 2.0-7.7 [facility] Automated lymphocyte count a s percentage of total leukocytesOrdered By: Celia Toriboi on 09-01-2024 Lymphocytes/100 WBC Auto (Unsp spec) 20.9 % 19-41 [facility] Basic Metabolic Profile (BMP )on 09-01-2024 BUN/CRE 26.8 RATIO High 10-20 [facility] Comment on above: Order Comment: PT RE FUSED REPORTED TO SEYMOUR STORY. SEYMOUR STORY SAID SHE WOULDTRY TO DRAW. Performed By: #### L 500.4445 ####[facility] [address] [place], [address] Calcium [Mass/Vol] 9.6 mg/dL Normal 7.6-11.0 [facility] Comment on above: Order Comment: PT RE FUSED REPORTED TO SEYMOUR JEZ. RN JEZ SAID SHE WOULDTRY TO DRAW. Performed By: #### L 500.2500 ####[facility] [address] [place], [address] Chloride [Moles/Vol] 102 mmol/L Normal 98-108 [facility] Comment on above: Order Comment: PT RE FUSED REPORTED TO RN JEZ. RN JEZ SAID SHE WOULDTRY TO DRAW. Performed By: #### L 500.2500 ####[facility] [address] [facility] [address] CO2 [Moles/Vol] 21.9 mmol/L Normal 21.0-32.0 [facility] Comment on above: Order Comment: PT RE FUSED REPORTED TO RN JEZ. RN JEZ SAID SHE WOULDTRY TO DRAW. Performed By: #### L 500.2500 ####[facility] [address] [facility] [address] Creatinine [Mass/Vol] 1.44 mg/dL High 0.70-1.20 [facility] Comment on above: Order Comment: PT RE FUSED REPORTED TO RN JEZ. RN JEZ SAID SHE WOULDTRY TO DRAW. Performed By: #### L 500.2500 ####[facility] [address] [facility] [address] ECRCL 42.38 ml/min Low 50-250 [facility] Comment on above: Order Comment: PT RE FUSED REPORTED TO RN JEZ. RN JEZ SAID SHE WOULDTRY TO DRAW. Performed By: #### L 500.2500 ####[facility] [address] [facility] [address] GAP 13 Normal 5-15 [facility] Comment on above: Order Comment: PT RE FUSED REPORTED TO RN JEZ. RN JEZ SAID SHE WOULDTRY TO DRAW. Performed By: #### L 500.2500 ####[facility] [address] [facility] [address] GFR/1.73 sq M.predicted among non-blacks MDRD (S/P/Bld) [Vol rate/Area] 51 mL/min/{1.73_m2} Low >60 [facility] Comment on above: Order Comment: PT RE FUSED REPORTED TO SEYMOUR STORY. RN JEZ SAID SHE WOULDTRY TO DRAW. Result Comment: mL/m in/1.73m2 CKD-EPI Creatinine Equation (2020) Performed By: #### L 500.2500 ####[facility] [address] [facility] [address] Glucose [Mass/Vol] 118 mg/dL High 70-99 [facility] Comment on above: Order Comment: PT RE FUSED REPORTED TO SEYMOUR STORY. RN JEZ SAID SHE WOULDTRY TO DRAW. Performed By: #### L 500.2500 ####[facility] [address] [facility] [address] Potassium [Moles/Vol] 4.1 mmol/L Normal 3.3-5.1 [facility] Comment on above: Order Comment: PT RE FUSED REPORTED TO SEYMOUR STORY. RN JEZ SAID SHE WOULDTRY TO DRAW. Performed By: #### L 500.2500 ####[facility] [address] [facility] [address] Sodium [Moles/Vol] 137 mmol/L Normal 133-145 [facility] Comment on above: Order Comment: PT RE FUSED REPORTED TO SEYMOUR STORY. RN JEZ SAID SHE WOULDTRY TO DRAW. Performed By: #### L 500.2500 ####[facility] [address] [facility] [address] Urea nitrogen [Mass/Vol] 39 mg/dL High 4-19 [facility] Comment on above: Order Comment: PT RE FUSED REPORTED TO SEYMOUR STORY. SEYMOUR STORY SAID SHE WOULDTRY TO DRAW. Performed By: #### L 500.2500 ####[facility] [address] [place], [address] BUN/CRE 30.2 RATIO High 10-20 [facility] Comment on above: Performed By: #### L 100.0100, L500.2500 ####[facility] [address] [place], [address] Calcium [Mass/Vol] 9.7 mg/dL Normal 7.6-11.0 [facility] Comment on above: Performed By: #### L 100.0100, L500.2500 ####[facility] [address] [place], [address] Chloride [Moles/Vol] 103 mmol/L Normal 98-108 [facility] Comment on above: Performed By: #### L 100.0100, L500.2500 ####[facility] [address] [place], [address] CO2 [Moles/Vol] 19.4 mmol/L Low 21.0-32.0 [facility] Comment on above: Performed By: #### L 100.0100, L500.2500 ####[facility] [address] [place], [address] Creatinine [Mass/Vol] 1.33 mg/dL High 0.70-1.20 [facility] Comment on above: Performed By: #### L 100.0100, L500.2500 ####[facility] [address] [place], [address] ECRCL 45.89 ml/min Low 50-250 [facility] Comment on above: Performed By: #### L 100.0100, L500.2500 ####[facility] [address] [place], [address] GAP 16 High 5-15 [facility] Comment on above: Performed By: #### L 100.0100, L500.2500 ####[facility] [address] [place], [address] GFR/1.73 sq M.predicted among non-blacks MDRD (S/P/Bld) [Vol rate/Area] 56 mL/min/{1.73_m2} Low >60 [facility] Comment on above: Result Comment: mL/m in/1.73m2 CKD-EPI Creatinine Equation (2020) Performed By: #### L 100.0100, L500.2500 ####[facility] [address] [place], [address] Glucose [Mass/Vol] 83 mg/dL Normal 70-99 [facility] Comment on above: Performed By: #### L 100.0100, L500.2500 ####[facility] [address] [place], [address] Potassium [Moles/Vol] 3.8 mmol/L Normal 3.3-5.1 [facility] Comment on above: Performed By: #### L 100.0100, L500.2500 ####[facility] [address] [place], [address] Sodium [Moles/Vol] 139 mmol/L Normal 133-145 [facility] Comment on above: Performed By: #### L 100.0100, L500.2500 ####[facility] [address] [place], [address] Urea nitrogen [Mass/Vol] 40 mg/dL High 4-19 [facility] Comment on above: Performed By: #### L 100.0100, L500.2500 ####[facility] [address] [place], [address] Basophil percentageOrdered B y: Celia Toribio on 09-01-2024 Basophils/100 WBC (Bld) 1.0 % 0-1 [facility] CBC W/Diff, Automatedon 08-17 Absolute Lymph 1.45 X10 3/uL Normal 0.83-4.51 [facility] Comment on above: Performed By: #### L 100.0100 ####[facility] [address] [place], [address] Absolute Neut 4.9 X10 3/uL Normal 2.0-7.7 [facility] Comment on above: Performed By: #### L 100.0100 ####[facility] [address] [place], [address] Basophils/100 WBC (Bld) 1.0 % Normal 0-1 [facility] Comment on above: Performed By: #### L 100.0100 ####[facility] [address] [place], [address] Eosinophils/100 WBC (Bld) 0.4 % Normal 0-5 [facility] Comment on above: Performed By: #### L 100.0100 ####[facility] [address] [place], [address] Erythrocyte distribution width (RBC) [Ratio] 13.3 % Normal 11.6-14.6 [facility] Comment on above: Performed By: #### L 100.0100 ####[facility] [address] [place], [address] Hematocrit (Bld) [Volume fraction] 43.2 % Normal 40-54 [facility] Comment on above: Performed By: #### L 100.0100 ####[facility] [address] [place], [address] Hemoglobin (Bld) [Mass/Vol] 14.1 g/dL Normal 13.0-16.5 [facility] Comment on above: Performed By: #### L 100.0100 ####[facility] [address] [place], [address] IG% 0.600 Normal 0.0-0.9 [facility] Comment on above: Result Comment: IG% - Immature Granulocytes (promyelocytes, myelocytes andmetamyelocytes) > 1% indicates that a LEFT SHIFT is Present. Performed By: #### L 100.0100 ####[facility] [address] [place], [id number] Lymphocytes/100 WBC (Bld) 20.9 % Normal 19-41 [facility] Comment on above: Performed By: #### L 100.0100 ####[facility] [address] [place], [address] MCH (RBC) [Entitic mass] 31.4 pg Normal 27.0-32.0 [facility] Comment on above: Performed By: #### L 100.0100 ####[facility] [address] [place], [address] MCHC (RBC) [Mass/Vol] 32.6 g/dL Normal 32-36 [facility] Comment on above: Performed By: #### L 100.0100 ####[facility] [address] [place], [address] MCV (RBC) [Entitic vol] 96.2 fL High 80-94 [facility] Comment on above: Performed By: #### L 100.0100 ####[facility] [address] [place], [address] Monocytes/100 WBC (Bld) 6.2 % Normal 0-10 [facility] Comment on above: Performed By: #### L 100.0100 ####[facility] [address] [place], [address] Neutrophils/100 WBC (Bld) 70.9 % High 47-70 [facility] Comment on above: Performed By: #### L 100.0100 ####[facility] [address] [place], [address] Nucleated RBC (Bld) [#/Vol] 0 10*3/uL Normal 0-5 [facility] Comment on above: Performed By: #### L 100.0100 ####[facility] [address] [place], [address] Platelet mean volume (Bld) [Entitic vol] 9.5 fL Normal 6.2-12.0 [facility] Comment on above: Performed By: #### L 100.0100 ####[facility] [address] [place], [address] Platelets (Bld) [#/Vol] 367 10*3/uL Normal 150-450 [facility] Comment on above: Performed By: #### L 100.0100 ####[facility] [address] [place], [address] RBC (Bld) [#/Vol] 4.49 10*6/uL Low 4.6-6.2 [facility] Comment on above: Performed By: #### L 100.0100 ####[facility] [address] [place], [address] RDW SD 47.4 fl High 35.1-43.9 [facility] Comment on above: Performed By: #### L 100.0100 ####[facility] [address] [place], [address] WBC (Bld) [#/Vol] 6.9 10*3/uL Normal 4.4-11.0 [facility] Comment on above: Performed By: #### L 100.0100 ####[facility] [address] [place], [address] Absolute Neut Normal 2.0-7.7 [facility] Comment on above: Result Comment: Bethanie luna via TINO: Ordered Performed By: #### L 100.0100, L500.2500 ####[facility] [address] [place], [address] HCT Normal 40-54 [facility] Comment on above: Result Comment: Canc elled via OM: MD Ordered Performed By: #### L 100.0100, L500.2500 ####[facility] [address] [place], [address] HGB Normal 13.0-16.5 [facility] Comment on above: Result Comment: Canc elled via OM: MD Ordered Performed By: #### L 100.0100, L500.2500 ####[facility] [address] [place], [address] MCH Normal 27.0-32.0 [facility] Comment on above: Result Comment: Canc elled via OM: MD Ordered Performed By: #### L 100.0100, L500.2500 ####[facility] [address] [place], [address] MCHC Normal 32-36 [facility] Comment on above: Result Comment: Canc elled via OM: MD Ordered Performed By: #### L 100.0100, L500.2500 ####[facility] [address] [place], [address] MCV Normal 80-94 [facility] Comment on above: Result Comment: Canc elled via OM: MD Ordered Performed By: #### L 100.0100, L500.2500 ####[facility] [address] [place], [address] NEUT% Normal 47-70 [facility] Comment on above: Result Comment: Canc elled via OM: MD Ordered Performed By: #### L 100.0100, L500.2500 ####[facility] [address] [place], [address] PLT Normal 150-450 [facility] Comment on above: Result Comment: Canc elled via OM: MD Ordered Performed By: #### L 100.0100, L500.2500 ####[facility] [address] [place], [address] RBC Normal 4.6-6.2 [facility] Comment on above: Result Comment: Canc elled via OM: MD Ordered Performed By: #### L 100.0100, L500.2500 ####[facility] [address] [place], [address] RDW CV Normal 11.6-14.6 [facility] Comment on above: Result Comment: Canc elled via OM: MD Ordered Performed By: #### L 100.0100, L500.2500 ####[facility] [address] [place], [address] RDW SD Normal 35.1-43.9 [facility] Comment on above: Result Comment: Canc elled via OM: MD Ordered Performed By: #### L 100.0100, L500.2500 ####[facility] [address] [place], [address] WBC Normal 4.4-11.0 [facility] Comment on above: Result Comment: Canc elled via OM: MD Ordered Performed By: #### L 100.0100, L500.2500 ####[facility] [address] [place], [address] Eosinophil percentageOrdered By: Celia Toribio on 09-01-2024 [...] 09-01-2024 MCHC (RBC) [Mass/Vol] 32.6 g/dL 32-36 [facility] Mean platelet volume determi nationOrdered By: Celia [...] RBC (Bld) [#/Vol] 4.49 10*6/uL Low 4.6-6.2 [facility] White blood cell (WBC) count Ordered By: Celia Troibio on 09-01-2024 WBC (Bld) [#/Vol] 6.9 10*3/uL 4.4-11.0 [facility] Basic Metabolic Profile (BMP )on 08-31-2024 BUN/CRE 25.7 RATIO High 10-20 [facility] Comment on above: Performed By: #### L 500.2500, L100.0100 ####[facility] [address] [place], [address] Calcium [Mass/Vol] 10.0 mg/dL Normal 7.6-11.0 [facility] Comment on above: Performed By: #### L 500.2500, L100.0100 ####[facility] [address] [place], [address] Chloride [Moles/Vol] 102 mmol/L Normal 98-108 [facility] Comment on above: Performed By: #### L 500.2500, L100.0100 ####[facility] [address] [place], [address] CO2 [Moles/Vol] 21.5 mmol/L Normal 21.0-32.0 [facility] Comment on above: Performed By: #### L 500.2500, L100.0100 ####[facility] [address] [place], [address] Creatinine [Mass/Vol] 1.16 mg/dL Normal 0.70-1.20 [facility] Comment on above: Performed By: #### L 500.2500, L100.0100 ####[facility] [address] [place], [address] ECRCL 52.61 ml/min Normal 50-250 [facility] Comment on above: Performed By: #### L 500.2500, L100.0100 ####[facility] [address] [place], [address] GAP 15 Normal 5-15 [facility] Comment on above: Performed By: #### L 500.2500, L100.0100 ####[facility] [address] [place], [address] GFR/1.73 sq M.predicted among non-blacks MDRD (S/P/Bld) [Vol rate/Area] 66 mL/min/{1.73_m2} Normal >60 [facility] Comment on above: Result Comment: mL/m in/1.73m2 CKD-EPI Creatinine Equation (2020) Performed By: #### L 500.2500, L100.0100 ####[facility] [address] [place], [address] Glucose [Mass/Vol] 93 mg/dL Normal 70-99 [facility] Comment on above: Performed By: #### L 500.2500, L100.0100 ####[facility] [address] [place], [address] Potassium [Moles/Vol] 3.8 mmol/L Normal 3.3-5.1 [facility] Comment on above: Performed By: #### L 500.2500, L100.0100 ####[facility] [address] [place], [address] Sodium [Moles/Vol] 138 mmol/L Normal 133-145 [facility] Comment on above: Performed By: #### L 500.2500, L100.0100 ####[facility] [address] [place], [address] Urea nitrogen [Mass/Vol] 30 mg/dL High 4-19 [facility] Comment on above: Performed By: #### L 500.2500, L100.0100 ####[facility] [address] [place], [address] CBC W/Diff, Automatedon 08-17 Absolute Neut Normal 2.0-7.7 [facility] Comment on above: Result Comment: Canc elled via OM: MD Ordered Performed By: #### L 500.2500, L100.0100 ####[facility] [address] [place], [address] HCT Normal 40-54 [facility] Comment on above: Result Comment: Canc elled via OM: MD Ordered Performed By: #### L 500.2500, L100.0100 ####[facility] [address] [place], [address] HGB Normal 13.0-16.5 [facility] Comment on above: Result Comment: Canc elled via OM: MD Ordered Performed By: #### L 500.2500, L100.0100 ####[facility] [address] [place], [address] MCH Normal 27.0-32.0 [facility] Comment on above: Result Comment: Canc elled via OM: MD Ordered Performed By: #### L 500.2500, L100.0100 ####[facility] [address] [place], [address] MCHC Normal 32-36 [facility] Comment on above: Result Comment: Canc elled via OM: MD Ordered Performed By: #### L 500.2500, L100.0100 ####[facility] [address] [place], [address] MCV Normal 80-94 [facility] Comment on above: Result Comment: Canc elled via OM: MD Ordered Performed By: #### L 500.2500, L100.0100 ####[facility] [address] [place], [address] NEUT% Normal 47-70 [facility] Comment on above: Result Comment: Canc elled via OM: MD Ordered Performed By: #### L 500.2500, L100.0100 ####[facility] [address] [place], [address] PLT Normal 150-450 [facility] Comment on above: Result Comment: Canc elled via OM: MD Ordered Performed By: #### L 500.2500, L100.0100 ####[facility] [address] [place], [address] RBC Normal 4.6-6.2 [facility] Comment on above: Result Comment: Canc elled via OM: MD Ordered Performed By: #### L 500.2500, L100.0100 ####[facility] [address] [place], [address] RDW CV Normal 11.6-14.6 [facility] Comment on above: Result Comment: Canc elled via OM: MD Ordered Performed By: #### L 500.2500, L100.0100 ####[facility] [address] [place], [address] RDW SD Normal 35.1-43.9 [facility] Comment on above: Result Comment: Canc elled via OM: MD Ordered Performed By: #### L 500.2500, L100.0100 ####[facility] [address] [place], [address] WBC Normal 4.4-11.0 [facility] Comment on above: Result Comment: Canc elled via OM: MD Ordered Performed By: #### L 500.2500, L100.0100 ####[facility] [address] [place], [address] Basic Metabolic Profile (BMP )on 08-30-2024 BUN/CRE 21.4 RATIO High 10-20 [facility] Comment on above: Performed By: #### L 500.2500, L100.0100 ####[facility] [address] [place], [address] Calcium [Mass/Vol] 10.1 mg/dL Normal 7.6-11.0 [facility] Comment on above: Performed By: #### L 500.2500, L100.0100 ####[facility] [address] [place], [address] Chloride [Moles/Vol] 102 mmol/L Normal 98-108 [facility] Comment on above: Performed By: #### L 500.2500, L100.0100 ####[facility] [address] [place], [address] CO2 [Moles/Vol] 22.7 mmol/L Normal 21.0-32.0 [facility] Comment on above: Performed By: #### L 500.2500, L100.0100 ####[facility] [address] [place], [address] Creatinine [Mass/Vol] 1.21 mg/dL High 0.70-1.20 [facility] Comment on above: Performed By: #### L 500.2500, L100.0100 ####[facility] [address] [place], [address] ECRCL 51.03 ml/min Normal 50-250 [facility] Comment on above: Performed By: #### L 500.2500, L100.0100 ####[facility] [address] [place], [address] GAP 13 Normal 5-15 [facility] Comment on above: Performed By: #### L 500.2500, L100.0100 ####[facility] [address] [place], [address] GFR/1.73 sq M.predicted among non-blacks MDRD (S/P/Bld) [Vol rate/Area] 62 mL/min/{1.73_m2} Normal >60 [facility] Comment on above: Result Comment: mL/m in/1.73m2 CKD-EPI Creatinine Equation (2020) Performed By: #### L 500.2500, L100.0100 ####[facility] [address] [place], [address] Glucose [Mass/Vol] 94 mg/dL Normal 70-99 [facility] Comment on above: Performed By: #### L 500.2500, L100.0100 ####[facility] [address] [place], [address] Potassium [Moles/Vol] 4.2 mmol/L Normal 3.3-5.1 [facility] Comment on above: Performed By: #### L 500.2500, L100.0100 ####[facility] [address] [place], [address] Sodium [Moles/Vol] 138 mmol/L Normal 133-145 [facility] Comment on above: Performed By: #### L 500.2500, L100.0100 ####[facility] [address] [place], [address] Urea nitrogen [Mass/Vol] 26 mg/dL High 4-19 [facility] Comment on above: Performed By: #### L 500.2500, L100.0100 ####[facility] [address] [place], [address] CBC W/Diff, Automatedon 03- Absolute Lymph 1.00 X10 3/uL Normal 0.83-4.51 [facility] Comment on above: Performed By: #### L 500.2500, L100.0100 ####[facility] [address] [place], [address] Absolute Neut 3.7 X10 3/uL Normal 2.0-7.7 [facility] Comment on above: Performed By: #### L 500.2500, L100.0100 ####[facility] [address] [place], [address] Basophils/100 WBC (Bld) 1.6 % High 0-1 [facility] Comment on above: Performed By: #### L 500.2500, L100.0100 ####[facility] [address] [place], [address] Eosinophils/100 WBC (Bld) 7.8 % High 0-5 [facility] Comment on above: Performed By: #### L 500.2500, L100.0100 ####[facility] [address] [place], [address] Erythrocyte distribution width (RBC) [Ratio] 13.3 % Normal 11.6-14.6 [facility] Comment on above: Performed By: #### L 500.2500, L100.0100 ####[facility] [address] [place], [address] Hematocrit (Bld) [Volume fraction] 41.8 % Normal 40-54 [facility] Comment on above: Performed By: #### L 500.2500, L100.0100 ####[facility] [address] [place], [address] Hemoglobin (Bld) [Mass/Vol] 13.8 g/dL Normal 13.0-16.5 [facility] Comment on above: Performed By: #### L 500.2500, L100.0100 ####[facility] [address] [place], [address] IG% 0.400 Normal 0.0-0.9 [facility] Comment on above: Result Comment: IG% - Immature Granulocytes (promyelocytes, myelocytes andmetamyelocytes) > 1% indicates that a LEFT SHIFT is Present. Performed By: #### L 500.2500, L100.0100 ####[facility] [address] [place], [address] Lymphocytes/100 WBC (Bld) 17.8 % Low 19-41 [facility] Comment on above: Performed By: #### L 500.2500, L100.0100 ####[facility] [address] [place], [address] MCH (RBC) [Entitic mass] 31.9 pg Normal 27.0-32.0 [facility] Comment on above: Performed By: #### L 500.2500, L100.0100 ####[facility] [address] [place], [address] MCHC (RBC) [Mass/Vol] 33.0 g/dL Normal 32-36 [facility] Comment on above: Performed By: #### L 500.2500, L100.0100 ####[facility] [address] [place], [address] MCV (RBC) [Entitic vol] 96.5 fL High 80-94 [facility] Comment on above: Performed By: #### L 500.2500, L100.0100 ####[facility] [address] [place], [address] Monocytes/100 WBC (Bld) 7.6 % Normal 0-10 [facility] Comment on above: Performed By: #### L 500.2500, L100.0100 ####[facility] [address] [place], [address] Neutrophils/100 WBC (Bld) 64.8 % Normal 47-70 [facility] Comment on above: Performed By: #### L 500.2500, L100.0100 ####[facility] [address] [place], [address] Nucleated RBC (Bld) [#/Vol] 0 10*3/uL Normal 0-5 [facility] Comment on above: Performed By: #### L 500.2500, L100.0100 ####[facility] [address] [place], [address] Platelet mean volume (Bld) [Entitic vol] 9.7 fL Normal 6.2-12.0 [facility] Comment on above: Performed By: #### L 500.2500, L100.0100 ####[facility] [address] [place], [address] Platelets (Bld) [#/Vol] 309 10*3/uL Normal 150-450 [facility] Comment on above: Performed By: #### L 500.2500, L100.0100 ####[facility] [address] [place], [address] RBC (Bld) [#/Vol] 4.33 10*6/uL Low 4.6-6.2 [facility] Comment on above: Performed By: #### L 500.2500, L100.0100 ####[facility] [address] [place], [address] RDW SD 47.7 fl High 35.1-43.9 [facility] Comment on above: Performed By: #### L 500.2500, L100.0100 ####[facility] [address] [place], [address] WBC (Bld) [#/Vol] 5.6 10*3/uL Normal 4.4-11.0 [facility] Comment on above: Performed By: #### L 500.2500, L100.0100 ####[facility] [address] [place], [address] Consultation - Infectious Dx on 08-30-2024 Consultation - Infectious Dx Normal [facility] Basic Metabolic Profile (BMP )on 08-29-2024 BUN/CRE 24.6 RATIO High 10-20 [facility] Comment on above: Performed By: #### L 100.0100, L500.2500 ####[facility] [address] [place], [address] Calcium [Mass/Vol] 10.0 mg/dL Normal 7.6-11.0 [facility] Comment on above: Performed By: #### L 100.0100, L500.2500 ####[facility] [address] [place], [address] Chloride [Moles/Vol] 104 mmol/L Normal 98-108 [facility] Comment on above: Performed By: #### L 100.0100, L500.2500 ####[facility] [address] [place], [address] CO2 [Moles/Vol] 22.8 mmol/L Normal 21.0-32.0 [facility] Comment on above: Performed By: #### L 100.0100, L500.2500 ####[facility] [address] [place], [address] Creatinine [Mass/Vol] 1.21 mg/dL High 0.70-1.20 [facility] Comment on above: Performed By: #### L 100.0100, L500.2500 ####[facility] [address] [place], [address] ECRCL 51.03 ml/min Normal 50-250 [facility] Comment on above: Performed By: #### L 100.0100, L500.2500 ####[facility] [address] [place], [address] GAP 14 Normal 5-15 [facility] Comment on above: Performed By: #### L 100.0100, L500.2500 ####[facility] [address] [place], [address] GFR/1.73 sq M.predicted among non-blacks MDRD (S/P/Bld) [Vol rate/Area] 62 mL/min/{1.73_m2} Normal >60 [facility] Comment on above: Result Comment: mL/m in/1.73m2 CKD-EPI Creatinine Equation (2020) Performed By: #### L 100.0100, L500.2500 ####[facility] [address] [place], [address] Glucose [Mass/Vol] 91 mg/dL Normal 70-99 [facility] Comment on above: Performed By: #### L 100.0100, L500.2500 ####[facility] [address] [place], [address] Potassium [Moles/Vol] 4.1 mmol/L Normal 3.3-5.1 [facility] Comment on above: Performed By: #### L 100.0100, L500.2500 ####[facility] [address] [place], [address] Sodium [Moles/Vol] 141 mmol/L Normal 133-145 [facility] Comment on above: Performed By: #### L 100.0100, L500.2500 ####[facility] [address] [place], [address] Urea nitrogen [Mass/Vol] 30 mg/dL High 4-19 [facility] Comment on above: Performed By: #### L 100.0100, L500.2500 ####[facility] [address] [place], [address] CBC W/Diff, Automatedon - Absolute Lymph 1.17 X10 3/uL Normal 0.83-4.51 [facility] Comment on above: Performed By: #### L 100.0100, L500.2500 ####[facility] [address] [place], [address] Absolute Neut 3.1 X10 3/uL Normal 2.0-7.7 [facility] Comment on above: Performed By: #### L 100.0100, L500.2500 ####[facility] [address] [place], [address] Basophils/100 WBC (Bld) 1.3 % High 0-1 [facility] Comment on above: Performed By: #### L 100.0100, L500.2500 ####[facility] [address] [place], [address] Eosinophils/100 WBC (Bld) 8.2 % High 0-5 [facility] Comment on above: Performed By: #### L 100.0100, L500.2500 ####[facility] [address] [place], [address] Erythrocyte distribution width (RBC) [Ratio] 13.5 % Normal 11.6-14.6 [facility] Comment on above: Performed By: #### L 100.0100, L500.2500 ####[facility] [address] [place], [address] Hematocrit (Bld) [Volume fraction] 39.2 % Low 40-54 [facility] Comment on above: Performed By: #### L 100.0100, L500.2500 ####[facility] [address] [place], [address] Hemoglobin (Bld) [Mass/Vol] 12.8 g/dL Low 13.0-16.5 [facility] Comment on above: Performed By: #### L 100.0100, L500.2500 ####[facility] [address] [place], [address] IG% 0.400 Normal 0.0-0.9 [facility] Comment on above: Result Comment: IG% - Immature Granulocytes (promyelocytes, myelocytes andmetamyelocytes) > 1% indicates that a LEFT SHIFT is Present. Performed By: #### L 100.0100, L500.2500 ####[facility] [address] [place], [address] Lymphocytes/100 WBC (Bld) 22.3 % Normal 19-41 [facility] Comment on above: Performed By: #### L 100.0100, L500.2500 ####[facility] [address] [place], [address] MCH (RBC) [Entitic mass] 31.4 pg Normal 27.0-32.0 [facility] Comment on above: Performed By: #### L 100.0100, L500.2500 ####[facility] [address] [place], [address] MCHC (RBC) [Mass/Vol] 32.7 g/dL Normal 32-36 [facility] Comment on above: Performed By: #### L 100.0100, L500.2500 ####[facility] [address] [place], [address] MCV (RBC) [Entitic vol] 96.1 fL High 80-94 [facility] Comment on above: Performed By: #### L 100.0100, L500.2500 ####[facility] [address] [place], [address] Monocytes/100 WBC (Bld) 8.0 % Normal 0-10 [facility] Comment on above: Performed By: #### L 100.0100, L500.2500 ####[facility] [address] [place], [address] Neutrophils/100 WBC (Bld) 59.8 % Normal 47-70 [facility] Comment on above: Performed By: #### L 100.0100, L500.2500 ####[facility] [address] [place], [address] Nucleated RBC (Bld) [#/Vol] 0 10*3/uL Normal 0-5 [facility] Comment on above: Performed By: #### L 100.0100, L500.2500 ####[facility] [address] [place], [address] Platelet mean volume (Bld) [Entitic vol] 9.8 fL Normal 6.2-12.0 [facility] Comment on above: Performed By: #### L 100.0100, L500.2500 ####[facility] [address] [place], [address] Platelets (Bld) [#/Vol] 277 10*3/uL Normal 150-450 [facility] Comment on above: Performed By: #### L 100.0100, L500.2500 ####[facility] [address] [place], [address] RBC (Bld) [#/Vol] 4.08 10*6/uL Low 4.6-6.2 [facility] Comment on above: Performed By: #### L 100.0100, L500.2500 ####[facility] [address] [place], [address] RDW SD 47.8 fl High 35.1-43.9 [facility] Comment on above: Performed By: #### L 100.0100, L500.2500 ####[facility] [address] [place], [address] WBC (Bld) [#/Vol] 5.3 10*3/uL Normal 4.4-11.0 [facility] Comment on above: Performed By: #### L 100.0100, L500.2500 ####[facility] [address] [place], [address] Basic Metabolic Profile (BMP )on 08-28-2024 BUN/CRE 21.6 RATIO High 10-20 [facility] Comment on above: Performed By: #### L 100.0100, L500.2500 ####[facility] [address] [place], [address] Calcium [Mass/Vol] 9.8 mg/dL Normal 7.6-11.0 [facility] Comment on above: Performed By: #### L 100.0100, L500.2500 ####[facility] [address] [place], [address] Chloride [Moles/Vol] 105 mmol/L Normal 98-108 [facility] Comment on above: Performed By: #### L 100.0100, L500.2500 ####[facility] [address] [place], [address] CO2 [Moles/Vol] 21.9 mmol/L Normal 21.0-32.0 [facility] Comment on above: Performed By: #### L 100.0100, L500.2500 ####[facility] [address] [place], [address] Creatinine [Mass/Vol] 1.14 mg/dL Normal 0.70-1.20 [facility] Comment on above: Performed By: #### L 100.0100, L500.2500 ####[facility] [address] [place], [address] ECRCL 54.17 ml/min Normal 50-250 [facility] Comment on above: Performed By: #### L 100.0100, L500.2500 ####[facility] [address] [place], [address] GAP 13 Normal 5-15 [facility] Comment on above: Performed By: #### L 100.0100, L500.2500 ####[facility] [address] [place], [address] GFR/1.73 sq M.predicted among non-blacks MDRD (S/P/Bld) [Vol rate/Area] 67 mL/min/{1.73_m2} Normal >60 [facility] Comment on above: Result Comment: mL/m in/1.73m2 CKD-EPI Creatinine Equation (2020) Performed By: #### L 100.0100, L500.2500 ####[facility] [address] [place], [address] Glucose [Mass/Vol] 93 mg/dL Normal 70-99 [facility] Comment on above: Performed By: #### L 100.0100, L500.2500 ####[facility] [address] [place], [address] Potassium [Moles/Vol] 3.8 mmol/L Normal 3.3-5.1 [facility] Comment on above: Performed By: #### L 100.0100, L500.2500 ####[facility] [address] [place], [address] Sodium [Moles/Vol] 140 mmol/L Normal 133-145 [facility] Comment on above: Performed By: #### L 100.0100, L500.2500 ####[facility] [address] [place], [address] Urea nitrogen [Mass/Vol] 25 mg/dL High 4-19 [facility] Comment on above: Performed By: #### L 100.0100, L500.2500 ####[facility] [address] [place], [address] CBC W/Diff, Automatedon 08-17 Absolute Lymph 1.06 X10 3/uL Normal 0.83-4.51 [facility] Comment on above: Performed By: #### L 100.0100, L500.2500 ####[facility] [address] [place], [address] Absolute Neut 2.5 X10 3/uL Normal 2.0-7.7 [facility] Comment on above: Performed By: #### L 100.0100, L500.2500 ####[facility] [address] [place], [address] Basophils/100 WBC (Bld) 1.8 % High 0-1 [facility] Comment on above: Performed By: #### L 100.0100, L500.2500 ####[facility] [address] [place], [address] Eosinophils/100 WBC (Bld) 7.5 % High 0-5 [facility] Comment on above: Performed By: #### L 100.0100, L500.2500 ####[facility] [address] [place], [address] Erythrocyte distribution width (RBC) [Ratio] 13.3 % Normal 11.6-14.6 [facility] Comment on above: Performed By: #### L 100.0100, L500.2500 ####[facility] [address] [place], [address] Hematocrit (Bld) [Volume fraction] 39.0 % Low 40-54 [facility] Comment on above: Performed By: #### L 100.0100, L500.2500 ####[facility] [address] [place], [address] Hemoglobin (Bld) [Mass/Vol] 12.8 g/dL Low 13.0-16.5 [facility] Comment on above: Performed By: #### L 100.0100, L500.2500 ####[facility] [address] [place], [address] IG% 0.400 Normal 0.0-0.9 [facility] Comment on above: Result Comment: IG% - Immature Granulocytes (promyelocytes, myelocytes andmetamyelocytes) > 1% indicates that a LEFT SHIFT is Present. Performed By: #### L 100.0100, L500.2500 ####[facility] [address] [place], [address] Lymphocytes/100 WBC (Bld) 23.4 % Normal 19-41 [facility] Comment on above: Performed By: #### L 100.0100, L500.2500 ####[facility] [address] [place], [address] MCH (RBC) [Entitic mass] 31.1 pg Normal 27.0-32.0 [facility] Comment on above: Performed By: #### L 100.0100, L500.2500 ####[facility] [address] [place], [address] MCHC (RBC) [Mass/Vol] 32.8 g/dL Normal 32-36 [facility] Comment on above: Performed By: #### L 100.0100, L500.2500 ####[facility] [address] [place], [address] MCV (RBC) [Entitic vol] 94.7 fL High 80-94 [facility] Comment on above: Performed By: #### L 100.0100, L500.2500 ####[facility] [address] [place], [address] Monocytes/100 WBC (Bld) 11.3 % High 0-10 [facility] Comment on above: Performed By: #### L 100.0100, L500.2500 ####[facility] [address] [place], [address] Neutrophils/100 WBC (Bld) 55.6 % Normal 47-70 [facility] Comment on above: Performed By: #### L 100.0100, L500.2500 ####[facility] [address] [place], [address] Nucleated RBC (Bld) [#/Vol] 0 10*3/uL Normal 0-5 [facility] Comment on above: Performed By: #### L 100.0100, L500.2500 ####[facility] [address] [place], [address] Platelet mean volume (Bld) [Entitic vol] 9.8 fL Normal 6.2-12.0 [facility] Comment on above: Performed By: #### L 100.0100, L500.2500 ####[facility] [address] [place], [address] Platelets (Bld) [#/Vol] 279 10*3/uL Normal 150-450 [facility] Comment on above: Performed By: #### L 100.0100, L500.2500 ####[facility] [address] [place], [address] RBC (Bld) [#/Vol] 4.12 10*6/uL Low 4.6-6.2 [facility] Comment on above: Performed By: #### L 100.0100, L500.2500 ####[facility] [address] [place], [address] RDW SD 46.1 fl High 35.1-43.9 [facility] Comment on above: Performed By: #### L 100.0100, L500.2500 ####[facility] [address] [place], [address] WBC (Bld) [#/Vol] 4.5 10*3/uL Normal 4.4-11.0 [facility] Comment on above: Performed By: #### L 100.0100, L500.2500 ####[facility] [address] [place], [address] Basic Metabolic Profile (BMP )on 08-27-2024 BUN/CRE 17.2 RATIO Normal 10-20 [facility] Comment on above: Performed By: #### L 500.2500, L100.0100 ####[facility] [address] [place], [address] Calcium [Mass/Vol] 9.5 mg/dL Normal 7.6-11.0 [facility] Comment on above: Performed By: #### L 500.2500, L100.0100 ####[facility] [address] [place], [address] Chloride [Moles/Vol] 104 mmol/L Normal 98-108 [facility] Comment on above: Performed By: #### L 500.2500, L100.0100 ####[facility] [address] [place], [address] CO2 [Moles/Vol] 19.9 mmol/L Low 21.0-32.0 [facility] Comment on above: Performed By: #### L 500.2500, L100.0100 ####[facility] [address] [place], [address] Creatinine [Mass/Vol] 1.18 mg/dL Normal 0.70-1.20 [facility] Comment on above: Performed By: #### L 500.2500, L100.0100 ####[facility] [address] [place], [address] ECRCL 52.25 ml/min Normal 50-250 [facility] Comment on above: Performed By: #### L 500.2500, L100.0100 ####[facility] [address] [place], [address] GAP 14 Normal 5-15 [facility] Comment on above: Performed By: #### L 500.2500, L100.0100 ####[facility] [address] [place], [address] GFR/1.73 sq M.predicted among non-blacks MDRD (S/P/Bld) [Vol rate/Area] 64 mL/min/{1.73_m2} Normal >60 [facility] Comment on above: Result Comment: mL/m in/1.73m2 CKD-EPI Creatinine Equation (2020) Performed By: #### L 500.2500, L100.0100 ####[facility] [address] [place], [address] Glucose [Mass/Vol] 97 mg/dL Normal 70-99 [facility] Comment on above: Performed By: #### L 500.2500, L100.0100 ####[facility] [address] [place], [address] Potassium [Moles/Vol] 3.4 mmol/L Normal 3.3-5.1 [facility] Comment on above: Performed By: #### L 500.2500, L100.0100 ####[facility] [address] [place], [address] Sodium [Moles/Vol] 139 mmol/L Normal 133-145 [facility] Comment on above: Performed By: #### L 500.2500, L100.0100 ####[facility] [address] [place], [address] Urea nitrogen [Mass/Vol] 20 mg/dL High 4-19 [facility] Comment on above: Performed By: #### L 500.2500, L100.0100 ####[facility] [address] [place], [address] Bilirubin Test strip Ql (U)O rdered By: Celia Toribio on 08-27-2024 Bilirubin Ql (U) Negative Negative [facility] CBC W/Diff, Automatedon 08-17 Absolute Lymph 0.95 X10 3/uL Normal 0.83-4.51 [facility] Comment on above: Performed By: #### L 500.2500, L100.0100 ####[facility] [address] [place], [address] Absolute Neut 2.3 X10 3/uL Normal 2.0-7.7 [facility] Comment on above: Performed By: #### L 500.2500, L100.0100 ####[facility] [address] [place], [address] Basophils/100 WBC (Bld) 1.2 % High 0-1 [facility] Comment on above: Performed By: #### L 500.2500, L100.0100 ####[facility] [address] [place], [address] Eosinophils/100 WBC (Bld) 6.3 % High 0-5 [facility] Comment on above: Performed By: #### L 500.2500, L100.0100 ####[facility] [address] [place], [address] Erythrocyte distribution width (RBC) [Ratio] 13.3 % Normal 11.6-14.6 [facility] Comment on above: Performed By: #### L 500.2500, L100.0100 ####[facility] [address] [place], [address] Hematocrit (Bld) [Volume fraction] 38.4 % Low 40-54 [facility] Comment on above: Performed By: #### L 500.2500, L100.0100 ####[facility] [address] [place], [address] Hemoglobin (Bld) [Mass/Vol] 12.8 g/dL Low 13.0-16.5 [facility] Comment on above: Performed By: #### L 500.2500, L100.0100 ####[facility] [address] [place], [address] IG% 0.200 Normal 0.0-0.9 [facility] Comment on above: Result Comment: IG% - Immature Granulocytes (promyelocytes, myelocytes andmetamyelocytes) > 1% indicates that a LEFT SHIFT is Present. Performed By: #### L 500.2500, L100.0100 ####[facility] [address] [place], [address] Lymphocytes/100 WBC (Bld) 23.0 % Normal 19-41 [facility] Comment on above: Performed By: #### L 500.2500, L100.0100 ####[facility] [address] [place], [address] MCH (RBC) [Entitic mass] 31.4 pg Normal 27.0-32.0 [facility] Comment on above: Performed By: #### L 500.2500, L100.0100 ####[facility] [address] [place], [address] MCHC (RBC) [Mass/Vol] 33.3 g/dL Normal 32-36 [facility] Comment on above: Performed By: #### L 500.2500, L100.0100 ####[facility] [address] [place], [address] MCV (RBC) [Entitic vol] 94.3 fL High 80-94 [facility] Comment on above: Performed By: #### L 500.2500, L100.0100 ####[facility] [address] [place], [address] Monocytes/100 WBC (Bld) 13.1 % High 0-10 [facility] Comment on above: Performed By: #### L 500.2500, L100.0100 ####[facility] [address] [place], [address] Neutrophils/100 WBC (Bld) 56.2 % Normal 47-70 [facility] Comment on above: Performed By: #### L 500.2500, L100.0100 ####[facility] [address] [place], [address] Nucleated RBC (Bld) [#/Vol] 0 10*3/uL Normal 0-5 [facility] Comment on above: Performed By: #### L 500.2500, L100.0100 ####[facility] [address] [place], [address] Platelet mean volume (Bld) [Entitic vol] 10.0 fL Normal 6.2-12.0 [facility] Comment on above: Performed By: #### L 500.2500, L100.0100 ####[facility] [address] [place], [address] Platelets (Bld) [#/Vol] 253 10*3/uL Normal 150-450 [facility] Comment on above: Performed By: #### L 500.2500, L100.0100 ####[facility] [address] [place], [address] RBC (Bld) [#/Vol] 4.07 10*6/uL Low 4.6-6.2 [facility] Comment on above: Performed By: #### L 500.2500, L100.0100 ####[facility] [address] [place], [address] RDW SD 46.1 fl High 35.1-43.9 [facility] Comment on above: Performed By: #### L 500.2500, L100.0100 ####[facility] [address] [place], [address] WBC (Bld) [#/Vol] 4.1 10*3/uL Low 4.4-11.0 [facility] Comment on above: Performed By: #### L 500.2500, L100.0100 ####[facility] [address] [place], [address] CBC-Complete Blood Cnt No Di abdulkadiron 08-27-2024 Erythrocyte distribution width (RBC) [Ratio] 13.4 % Normal 11.6-14.6 [facility] Comment on above: Performed By: #### L 100.0500 ####[facility] [address] [place], [address] Hematocrit (Bld) [Volume fraction] 40.6 % Normal 40-54 [facility] Comment on above: Performed By: #### L 100.0500 ####[facility] [address] [place], [address] Hemoglobin (Bld) [Mass/Vol] 13.5 g/dL Normal 13.0-16.5 [facility] Comment on above: Performed By: #### L 100.0500 ####[facility] [address] [place], [address] MCH (RBC) [Entitic mass] 31.5 pg Normal 27.0-32.0 [facility] Comment on above: Performed By: #### L 100.0500 ####[facility] [address] [place], [address] MCHC (RBC) [Mass/Vol] 33.3 g/dL Normal 32-36 [facility] Comment on above: Performed By: #### L 100.0500 ####[facility] [address] [place], [address] MCV (RBC) [Entitic vol] 94.6 fL High 80-94 [facility] Comment on above: Performed By: #### L 100.0500 ####[facility] [address] [place], [address] Platelet mean volume (Bld) [Entitic vol] 9.8 fL Normal 6.2-12.0 [facility] Comment on above: Performed By: #### L 100.0500 ####[facility] [address] [place], [address] Platelets (Bld) [#/Vol] 283 10*3/uL Normal 150-450 [facility] Comment on above: Performed By: #### L 100.0500 ####[facility] [address] [place], [address] RBC (Bld) [#/Vol] 4.29 10*6/uL Low 4.6-6.2 [facility] Comment on above: Performed By: #### L 100.0500 ####[facility] [address] [place], [address] RDW SD 46.0 fl High 35.1-43.9 [facility] Comment on above: Performed By: #### L 100.0500 ####[facility] [address] [place], [address] WBC (Bld) [#/Vol] 4.9 10*3/uL Normal 4.4-11.0 [facility] Comment on above: Performed By: #### L 100.0500 ####[facility] [address] [place], [address] Epithelial cells.squamous LM Ql (Urine sed)Ordered By: Celia Toribio on 08-27-2024 Epithelial cells.squamous LM.HPF (Urine sed) [#/Area] 0 /[HPF] 0-5 [facility] Glucose Ql (U)Ordered By: Yariel Toribio on 08-27-2024 Urine Glucose (UA) Normal mg/dl Normal [facility] Ketones Test strip Ql (U)Ord ered By: Cleia Toribio on 08-27-2024 Ketones Ql (U) Negative [...] Mucus Ql (Urine sed) 0 SEEN /hpf [facility] Nitrite Test strip Ql (U)Ord ered By: [...] M 100.2200, L400.0001 ####[facility] [address] [place], [address] EPI,SQUAMOUS 0-5 SEEN Normal 0-5 [facility] Comment on above: Order Comment: CLEAN CATCH Performed By: #### M 100.2200, L400.0001 ####[facility] [address] [place], [address] RBC 0 SEEN Normal 0-5 [facility] Comment on above: Order Comment: CLEAN CATCH Performed By: #### M 100.2200, L400.0001 ####[facility] [address] [place], [address] WBC 25-50 SEEN Normal 0-5 [facility] Comment on above: Order Comment: CLEAN CATCH Performed By: #### M 100.2200, L400.0001 ####[facility] [address] [place], [address] Mucus Ql (Urine sed) 0 SEEN Normal [facility] Comment on above: Order Comment: CLEAN CATCH Performed By: #### M 100.2200, L400.0001 ####[facility] [address] [place], [address] Urine blood detectionOrdered By: Celia Toribio on 08-27-2024 Urine Occult Blood Negative Negative [facility] Urine clarityOrdered By: Allyson Toribio on [...] 08-27-2024 Urobilinogen Ql (U) Normal mg/dl Normal [facility] Urobilinogen Ql (U)Ordered B y: Celia Toribio on 08-27-2024 Urine Urobilinogen Normal mg/dl Normal [facility] White blood cell countOrdere d By: Celia Toribio on 08-27-2024 Urine WBC 25-50 SEEN /hpf 0-5 [facility] White blood cell count 25-50 SEEN /hpf 0-5 [facility] Bilirubin, totalOrdered By: Lisha Talamantes on 08-26-2024 Bilirubin [Mass/Vol] 0.25 mg/dL 0.00-1.30 [facility] CBC W/Diff, Automatedon 03-1 0-2025 Absolute Lymph 0.94 X10 3/uL Normal 0.83-4.51 [facility] Comment on above: Performed By: #### L 500.4050, L501.5200, L100.0100, L501.2300 ####[facility] [address] [place], [address] Absolute Neut 2.9 X10 3/uL Normal 2.0-7.7 [facility] Comment on above: Performed By: #### L 500.4050, L501.5200, L100.0100, L501.2300 ####[facility] [address] [place], [address] Basophils/100 WBC (Bld) 1.1 % High 0-1 [facility] Comment on above: Performed By: #### L 500.4050, L501.5200, L100.0100, L501.2300 ####[facility] [address] [place], [address] Eosinophils/100 WBC (Bld) 3.4 % Normal 0-5 [facility] Comment on above: Performed By: #### L 500.4050, L501.5200, L100.0100, L501.2300 ####[facility] [address] [place], [address] Erythrocyte distribution width (RBC) [Ratio] 13.3 % Normal 11.6-14.6 [facility] Comment on above: Performed By: #### L 500.4050, L501.5200, L100.0100, L501.2300 ####[facility] [address] [place], [address] Hematocrit (Bld) [Volume fraction] 40.6 % Normal 40-54 [facility] Comment on above: Performed By: #### L 500.4050, L501.5200, L100.0100, L501.2300 ####[facility] [address] [place], [address] Hemoglobin (Bld) [Mass/Vol] 13.3 g/dL Normal 13.0-16.5 [facility] Comment on above: Performed By: #### L 500.4050, L501.5200, L100.0100, L501.2300 ####[facility] [address] [place], [address] IG% 0.200 Normal 0.0-0.9 [facility] Comment on above: Result Comment: IG% - Immature Granulocytes (promyelocytes, myelocytes andmetamyelocytes) > 1% indicates that a LEFT SHIFT is Present. Performed By: #### L 500.4050, L501.5200, L100.0100, L501.2300 ####[facility] [address] [place], [address] Lymphocytes/100 WBC (Bld) 19.8 % Normal 19-41 [facility] Comment on above: Performed By: #### L 500.4050, L501.5200, L100.0100, L501.2300 ####[facility] [address] [place], [address] MCH (RBC) [Entitic mass] 31.2 pg Normal 27.0-32.0 [facility] Comment on above: Performed By: #### L 500.4050, L501.5200, L100.0100, L501.2300 ####[facility] [address] [place], [address] MCHC (RBC) [Mass/Vol] 32.8 g/dL Normal 32-36 [facility] Comment on above: Performed By: #### L 500.4050, L501.5200, L100.0100, L501.2300 ####[facility] [address] [place], [address] MCV (RBC) [Entitic vol] 95.3 fL High 80-94 [facility] Comment on above: Performed By: #### L 500.4050, L501.5200, L100.0100, L501.2300 ####[facility] [address] [place], [address] Monocytes/100 WBC (Bld) 15.2 % High 0-10 [facility] Comment on above: Performed By: #### L 500.4050, L501.5200, L100.0100, L501.2300 ####[facility] [address] [place], [address] Neutrophils/100 WBC (Bld) 60.3 % Normal 47-70 [facility] Comment on above: Performed By: #### L 500.4050, L501.5200, L100.0100, L501.2300 ####[facility] [address] [place], [address] Nucleated RBC (Bld) [#/Vol] 0 10*3/uL Normal 0-5 [facility] Comment on above: Performed By: #### L 500.4050, L501.5200, L100.0100, L501.2300 ####[facility] [address] [place], [address] Platelet mean volume (Bld) [Entitic vol] 9.9 fL Normal 6.2-12.0 [facility] Comment on above: Performed By: #### L 500.4050, L501.5200, L100.0100, L501.2300 ####[facility] [address] [place], [address] Platelets (Bld) [#/Vol] 242 10*3/uL Normal 150-450 [facility] Comment on above: Performed By: #### L 500.4050, L501.5200, L100.0100, L501.2300 ####[facility] [address] [place], [address] RBC (Bld) [#/Vol] 4.26 10*6/uL Low 4.6-6.2 [facility] Comment on above: Performed By: #### L 500.4050, L501.5200, L100.0100, L501.2300 ####[facility] [address] [place], [address] RDW SD 46.7 fl High 35.1-43.9 [facility] Comment on above: Performed By: #### L 500.4050, L501.5200, L100.0100, L501.2300 ####[facility] [address] [place], [address] WBC (Bld) [#/Vol] 4.7 10*3/uL Normal 4.4-11.0 [facility] Comment on above: Performed By: #### L 500.4050, L501.5200, L100.0100, L501.2300 ####[facility] [address] [place], [address] COVID 19 AG RAPID (SEYMOUR Dixon)on 08-26-2024 SARS-CoV-2 (COVID-19) RNA ALEENA+probe Ql (Unsp spec) Normal [facility] Comment on above: Performed By: #### M 100.505 ####[facility] [address] [place], [address] COVID-19 virus antigen assay Ordered By: Celia Toribio on 08-26-2024 SARS-CoV-2 (COVID-19) Ag IA.rapid Ql (Resp) [facility] Comprehensive Metabolic Prof ilon 08-26-2024 Albumin [Mass/Vol] 4.0 g/dL Normal 3.4-4.8 [facility] Comment on above: Performed By: #### L 500.4050, L501.5200, L100.0100, L501.2300 ####[facility] [address] [place], [address] Albumin/Globulin [Mass ratio] 1.4 {ratio} Normal 0.9-2.4 [facility] Comment on above: Performed By: #### L 500.4050, L501.5200, L100.0100, L501.2300 ####[facility] [address] [place], [address] ALK PHOS 67 U/L Normal 40-129 [facility] Comment on above: Performed By: #### L 500.4050, L501.5200, L100.0100, L501.2300 ####[facility] [address] [place], [address] ALT [Catalytic activity/Vol] 28 U/L Normal <=46 [facility] Comment on above: Performed By: #### L 500.4050, L501.5200, L100.0100, L501.2300 ####[facility] [address] [place], [address] AST [Catalytic activity/Vol] 23 U/L Normal <=37 [facility] Comment on above: Performed By: #### L 500.4050, L501.5200, L100.0100, L501.2300 ####[facility] [address] [place], [address] Bilirubin [Mass/Vol] 0.25 mg/dL Normal 0.00-1.30 [facility] Comment on above: Performed By: #### L 500.4050, L501.5200, L100.0100, L501.2300 ####[facility] [address] [place], [address] BUN/CRE 21.8 RATIO High 10-20 [facility] Comment on above: Performed By: #### L 500.4050, L501.5200, L100.0100, L501.2300 ####[facility] [address] [place], [address] Calcium [Mass/Vol] 9.4 mg/dL Normal 7.6-11.0 [facility] Comment on above: Performed By: #### L 500.4050, L501.5200, L100.0100, L501.2300 ####[facility] [address] [place], [address] Chloride [Moles/Vol] 105 mmol/L Normal 98-108 [facility] Comment on above: Performed By: #### L 500.4050, L501.5200, L100.0100, L501.2300 ####[facility] [address] [place], [address] CO2 [Moles/Vol] 17.6 mmol/L Low 21.0-32.0 [facility] Comment on above: Performed By: #### L 500.4050, L501.5200, L100.0100, L501.2300 ####[facility] [address] [place], [address] Creatinine [Mass/Vol] 1.04 mg/dL Normal 0.70-1.20 [facility] Comment on above: Performed By: #### L 500.4050, L501.5200, L100.0100, L501.2300 ####[facility] [address] [place], [address] ECRCL 58.77 ml/min Normal 50-250 [facility] Comment on above: Performed By: #### L 500.4050, L501.5200, L100.0100, L501.2300 ####[facility] [address] [place], [address] GAP 16 High 5-15 [facility] Comment on above: Performed By: #### L 500.4050, L501.5200, L100.0100, L501.2300 ####[facility] [address] [place], [address] GFR/1.73 sq M.predicted among non-blacks MDRD (S/P/Bld) [Vol rate/Area] 75 mL/min/{1.73_m2} Normal >60 [facility] Comment on above: Result Comment: mL/m in/1.73m2 CKD-EPI Creatinine Equation (2020) Performed By: #### L 500.4050, L501.5200, L100.0100, L501.2300 ####[facility] [address] [place], [address] Globulin (S) [Mass/Vol] 2.9 g/dL Normal 2.2-4.2 [facility] Comment on above: Performed By: #### L 500.4050, L501.5200, L100.0100, L501.2300 ####[facility] [address] [place], [address] Glucose [Mass/Vol] 88 mg/dL Normal 70-99 [facility] Comment on above: Performed By: #### L 500.4050, L501.5200, L100.0100, L501.2300 ####[facility] [address] [place], [address] Potassium [Moles/Vol] 3.6 mmol/L Normal 3.3-5.1 [facility] Comment on above: Performed By: #### L 500.4050, L501.5200, L100.0100, L501.2300 ####[facility] [address] [place], [address] Sodium [Moles/Vol] 139 mmol/L Normal 133-145 [facility] Comment on above: Performed By: #### L 500.4050, L501.5200, L100.0100, L501.2300 ####[facility] [address] [place], [address] T PROT 6.9 g/dL Normal 5.9-8.4 [facility] Comment on above: Performed By: #### L 500.4050, L501.5200, L100.0100, L501.2300 ####[facility] [address] [place], [address] Urea nitrogen [Mass/Vol] 23 mg/dL High 4-19 [facility] Comment on above: Performed By: #### L 500.4050, L501.5200, L100.0100, L501.2300 ####[facility] [address] [place], [address] Laboratory - Chemistry and C hemistry - challengeOrdered By: Lisha Talamantes on 08-26-2024 AST [Catalytic activity/Vol] 23 U/L <38 [facility] Lactic Acidon 08-26-2024 Lactate [Moles/Vol] 1.1 mmol/L Normal 0.0-2.0 [facility] Comment on above: Order Comment: Y Performed By: #### L 503.6005 ####[facility] [address] [place], [address] Lactic acid measurementOrder ed By: Celia Toribio on 08-26-2024 Lactate [Moles/Vol] 1.1 mmol/L 0.0-2.0 [facility] Magnesiumon 08-26-2024 Magnesium [Mass/Vol] 1.9 mg/dL Normal 1.5-2.2 [facility] Comment on above: Performed By: #### L 500.4050, L501.5200, L100.0100, L501.2300 ####[facility] [address] [place], [place], [address] Magnesium (Unsp spec) [Mass/ Vol]Ordered By: Lisha Talamantes on 08-26-2024 Magnesium [Mass/Vol] 1.9 mg/dL 1.5-2.2 [facility] Magnesium measurement (mass/ volume)Ordered By: Lisha Talamantes on 08-26-2024 Magnesium (Unsp spec) [Mass/Vol] 1.9 mg/dL 1.5-2.2 [facility] No Panel InformationOrdered By: Lisha Talamantes on 08-26-2024 23 U/L <38 [facility] Phosphoruson 08-26-2024 Phosphate [Mass/Vol] 3.1 mg/dL Normal 2.7-4.5 [facility] Comment on above: Performed By: #### L 500.4050, L501.5200, L100.0100, L501.2300 ####[facility] [address] [place], [place], [address] RESPIRATORY PANEL MOLECULARo n 08-26-2024 RP PANEL Normal [facility] Comment on above: Performed By: #### M 100.638 ####[facility] [address] [place], [place], [address] Respiratory pathogens DNA an d RNA panel ALEENA+probe (Resp)Ordered By: Celia Toribio on 08-26-2024 Respiratory Panel (PCR) [facility] Respiratory pathogens detect ion panel by molecular detection methodOrdered By: Celia Toribio on 08-26-2024 Respiratory pathogens DNA and RNA panel ALEENA+probe (Resp) [facility] SARS-CoV-2 (COVID-19) Ag IA. rapid Ql (Resp)Ordered By: Celia Toribio on 08-26-2024 SARS-CoV-2 Antigen (Rapid) [facility] Serum globulin measurementOr dered By: Lisha Talamantes on 08-26-2024 Globulin (S) [Mass/Vol] 2.9 g/dL 2.2-4.2 [facility] Serum or plasma alanine saul otransferase (ALT) measurementOrdered By: Lisha Talamantes on 08-26-2024 ALT [Catalytic activity/Vol] 28 U/L <47 [facility] Serum or plasma albumin luis urement (mass/volume)Ordered By: Lisha Talamantes on 08-26-2024 Albumin [Mass/Vol] 4.0 g/dL 3.4-4.8 [facility] Serum or plasma albumin/glob ulin mass [...] on 08-26-2024 Protein [Mass/Vol] 6.9 g/dL 5.9-8.4 [facility] Absolute neutrophil countOrd ered By: Jaden Jauregui on 08-25-2024 Neutrophils (Bld) [#/Vol] 4.6 10*3/uL 2.0-7.7 [facility] Anion gap in Serum or Plasma Ordered By: Jaden Jauregui on 08-25-2024 Anion gap [Moles/Vol] 13 mmol/L 5-15 [facility] BUN/creatinine ratioOrdered By: Jaden Jauregui on 08-25-2024 Urea nitrogen/Creatinine [Mass ratio] 21.4 mg/mg High 10-20 [facility] Basophil percentageOrdered B y: Jaden Jauregui on 08-25-2024 Basophils/100 WBC (Bld) 0.8 % 0-1 [facility] Bilirubin, totalOrdered By: Jaden Jauregui on 08-25-2024 Bilirubin [Mass/Vol] 0.22 mg/dL 0.00-1.30 [facility] CBC W/Diff, Automatedon Absolute Lymph 0.61 X10 3/uL Low 0.83-4.51 [facility] Comment on above: Performed By: #### L 500.4050, L100.0100 ####[facility] [address] [place], [address] Absolute Neut 4.6 X10 3/uL Normal 2.0-7.7 [facility] Comment on above: Performed By: #### L 500.4050, L100.0100 ####[facility] [address] [place], [address] Basophils/100 WBC (Bld) 0.8 % Normal 0-1 [facility] Comment on above: Performed By: #### L 500.4050, L100.0100 ####[facility] [address] [place], [address] Eosinophils/100 WBC (Bld) 0.3 % Normal 0-5 [facility] Comment on above: Performed By: #### L 500.4050, L100.0100 ####[facility] [address] [place], [address] Erythrocyte distribution width (RBC) [Ratio] 13.2 % Normal 11.6-14.6 [facility] Comment on above: Performed By: #### L 500.4050, L100.0100 ####[facility] [address] [place], [address] Hematocrit (Bld) [Volume fraction] 43.3 % Normal 40-54 [facility] Comment on above: Performed By: #### L 500.4050, L100.0100 ####[facility] [address] [place], [address] Hemoglobin (Bld) [Mass/Vol] 14.2 g/dL Normal 13.0-16.5 [facility] Comment on above: Performed By: #### L 500.4050, L100.0100 ####[facility] [address] [place], [address] IG% 0.300 Normal 0.0-0.9 [facility] Comment on above: Result Comment: IG% - Immature Granulocytes (promyelocytes, myelocytes andmetamyelocytes) > 1% indicates that a LEFT SHIFT is Present. Performed By: #### L 500.4050, L100.0100 ####[facility] [address] [place], [address] Lymphocytes/100 WBC (Bld) 10.3 % Low 19-41 [facility] Comment on above: Performed By: #### L 500.4050, L100.0100 ####[facility] [address] [place], [address] MCH (RBC) [Entitic mass] 31.4 pg Normal 27.0-32.0 [facility] Comment on above: Performed By: #### L 500.4050, L100.0100 ####[facility] [address] [place], [address] MCHC (RBC) [Mass/Vol] 32.8 g/dL Normal 32-36 [facility] Comment on above: Performed By: #### L 500.4050, L100.0100 ####[facility] [address] [place], [address] MCV (RBC) [Entitic vol] 95.8 fL High 80-94 [facility] Comment on above: Performed By: #### L 500.4050, L100.0100 ####[facility] [address] [place], [address] Monocytes/100 WBC (Bld) 9.9 % Normal 0-10 [facility] Comment on above: Performed By: #### L 500.4050, L100.0100 ####[facility] [address] [place], [address] Neutrophils/100 WBC (Bld) 78.4 % High 47-70 [facility] Comment on above: Performed By: #### L 500.4050, L100.0100 ####[facility] [address] [place], [address] Nucleated RBC (Bld) [#/Vol] 0 10*3/uL Normal 0-5 [facility] Comment on above: Performed By: #### L 500.4050, L100.0100 ####[facility] [address] [place], [address] Platelet mean volume (Bld) [Entitic vol] 9.5 fL Normal 6.2-12.0 [facility] Comment on above: Performed By: #### L 500.4050, L100.0100 ####[facility] [address] [place], [address] Platelets (Bld) [#/Vol] 245 10*3/uL Normal 150-450 [facility] Comment on above: Performed By: #### L 500.4050, L100.0100 ####[facility] [address] [place], [address] RBC (Bld) [#/Vol] 4.52 10*6/uL Low 4.6-6.2 [facility] Comment on above: Performed By: #### L 500.4050, L100.0100 ####[facility] [address] [place], [address] RDW SD 46.6 fl High 35.1-43.9 [facility] Comment on above: Performed By: #### L 500.4050, L100.0100 ####[facility] [address] [place], [address] WBC (Bld) [#/Vol] 5.9 10*3/uL Normal 4.4-11.0 [facility] Comment on above: Performed By: #### L 500.4050, L100.0100 ####[facility] [address] [place], [address] Carbon dioxide, total [Moles /volume] in Central venous bloodOrdered By: Jaden Jauregui on 08-25-2024 CO2 [Moles/Vol] 24.5 mmol/L 21.0-32.0 [facility] Chest 1 View (Portable)on Chest 1 View (Portable) Normal [facility] Chloride assayOrdered By: Joseph Jauregui on 08-25-2024 Chloride [Moles/Vol] 102 mmol/L 98-108 [facility] Comprehensive Metabolic Prof ilon 08-25-2024 Albumin [Mass/Vol] 4.5 g/dL Normal 3.4-4.8 [facility] Comment on above: Performed By: #### L 500.4050, L100.0100 ####[facility] [address] [place], [address] Albumin/Globulin [Mass ratio] 1.4 {ratio} Normal 0.9-2.4 [facility] Comment on above: Performed By: #### L 500.4050, L100.0100 ####[facility] [address] [place], [address] ALK PHOS 77 U/L Normal 40-129 [facility] Comment on above: Performed By: #### L 500.4050, L100.0100 ####[facility] [address] [place], [address] ALT [Catalytic activity/Vol] 32 U/L Normal <=46 [facility] Comment on above: Performed By: #### L 500.4050, L100.0100 ####[facility] [address] [place], [address] AST [Catalytic activity/Vol] 26 U/L Normal <=37 [facility] Comment on above: Performed By: #### L 500.4050, L100.0100 ####[facility] [address] [place], [address] Bilirubin [Mass/Vol] 0.22 mg/dL Normal 0.00-1.30 [facility] Comment on above: Performed By: #### L 500.4050, L100.0100 ####[facility] [address] [place], [address] BUN/CRE 21.4 RATIO High 10-20 [facility] Comment on above: Performed By: #### L 500.4050, L100.0100 ####[facility] [address] [place], [address] Calcium [Mass/Vol] 10.0 mg/dL Normal 7.6-11.0 [facility] Comment on above: Performed By: #### L 500.4050, L100.0100 ####[facility] [address] [place], [address] Chloride [Moles/Vol] 102 mmol/L Normal 98-108 [facility] Comment on above: Performed By: #### L 500.4050, L100.0100 ####[facility] [address] [place], [address] CO2 [Moles/Vol] 24.5 mmol/L Normal 21.0-32.0 [facility] Comment on above: Performed By: #### L 500.4050, L100.0100 ####[facility] [address] [place], [address] Creatinine [Mass/Vol] 1.17 mg/dL Normal 0.70-1.20 [facility] Comment on above: Performed By: #### L 500.4050, L100.0100 ####[facility] [address] [place], [address] GAP 13 Normal 5-15 [facility] Comment on above: Performed By: #### L 500.4050, L100.0100 ####[facility] [address] [place], [address] GFR/1.73 sq M.predicted among non-blacks MDRD (S/P/Bld) [Vol rate/Area] 65 mL/min/{1.73_m2} Normal >60 [facility] Comment on above: Result Comment: mL/m in/1.73m2 CKD-EPI Creatinine Equation (2020) Performed By: #### L 500.4050, L100.0100 ####[facility] [address] [place], [address] Globulin (S) [Mass/Vol] 3.2 g/dL Normal 2.2-4.2 [facility] Comment on above: Performed By: #### L 500.4050, L100.0100 ####[facility] [address] [place], [address] Glucose [Mass/Vol] 98 mg/dL Normal 70-99 [facility] Comment on above: Performed By: #### L 500.4050, L100.0100 ####[facility] [address] [place], [address] Potassium [Moles/Vol] 3.8 mmol/L Normal 3.3-5.1 [facility] Comment on above: Performed By: #### L 500.4050, L100.0100 ####[facility] [address] [place], [address] Sodium [Moles/Vol] 139 mmol/L Normal 133-145 [facility] Comment on above: Performed By: #### L 500.4050, L100.0100 ####[facility] [address] [place], [address] T PROT 7.7 g/dL Normal 5.9-8.4 [facility] Comment on above: Performed By: #### L 500.4050, L100.0100 ####[facility] [address] [place], [address] Urea nitrogen [Mass/Vol] 25 mg/dL High 4-19 [facility] Comment on above: Performed By: #### L 500.4050, L100.0100 ####[facility] [address] [place], [place], [id number] Emergency Department Summary on 08-25-2024 Emergency Department [...] [facility] 08-25-2024 H&P Exam - Hospitalist Normal [facility] Hematocrit Auto (Bld) [Volum e [...] 08-25-2024 MCHC (RBC) [Mass/Vol] 32.8 g/dL 32-36 [facility] Mean platelet volume determi nationOrdered By: Jaden [...] on 08-25-2024 Potassium [Moles/Vol] 3.8 mmol/L 3.3-5.1 [facility] RBC Auto (Bld) [#/Vol]Ordere d By: Jaden Jauregui on 08-25-2024 RBC (Bld) [#/Vol] 4.52 10*6/uL Low 4.6-6.2 [facility] Serum creatinine measurement (mass/volume)Ordered By: Jaden Jauregui on 08-25-2024 Creatinine [Mass/Vol] 1.17 mg/dL 0.70-1.20 [facility] Serum globulin measurementOr dered By: Jaden Jauregui on 08-25-2024 Globulin (S) [Mass/Vol] 3.2 g/dL 2.2-4.2 [facility] Serum glucose measurement (m ass/volume)Ordered By: Jaden Jauregui on 08-25-2024 Glucose [Mass/Vol] 98 mg/dL 70-99 [facility] Serum or plasma alanine saul otransferase (ALT) measurementOrdered By: Jaden Jauregui on 08-25-2024 ALT [Catalytic activity/Vol] 32 U/L <47 [facility] Serum or plasma albumin luis urement (mass/volume)Ordered By: Jaden Jauregui on 08-25-2024 Albumin [Mass/Vol] 4.5 g/dL 3.4-4.8 [facility] Serum or plasma albumin/glob ulin mass ratioOrdered By: Jaden Jauregui on 08-25-2024 Albumin/Globulin [Mass ratio] 1.4 {ratio} 0.9-2.4 [facility] Serum or plasma alkaline kathleen sphatase measurementOrdered By: Jaden Jauregui on 08-25-2024 ALP [Catalytic activity/Vol] 77 U/L 40-129 [facility] Serum or plasma calcium luis urement (mass/volume)Ordered By: Jaden Jauregui on 08-25-2024 Calcium [Mass/Vol] 10.0 mg/dL 7.6-11.0 [facility] Serum or plasma urea nitroge n measurement (mass/volume)Ordered By: Jaden Jauregui on 08-25-2024 Urea nitrogen [Mass/Vol] 25 mg/dL High 4-19 [facility] Sodium levelOrdered By: Maurice Jauregui on 08-25-2024 Sodium [Moles/Vol] 139 mmol/L 133-145 [facility] Total proteinOrdered By: Rad Jauregui on 08-25-2024 Protein [Mass/Vol] 7.7 g/dL 5.9-8.4 [facility] White blood cell (WBC) count Ordered By: Jaden Jauregui on 08-25-2024 WBC (Bld) [#/Vol] 5.9 10*3/uL 4.4-11.0 [facility] 66-HY-Vxxhycf DOrdered By: Landry Crane on 07-15-2024 Vitamin D 25-Hydroxy 36.0 ng/mL [facility] Comment on above: Vitamin D 25(OH) Sta tus Range Deficiency <20 ng/mL (50nmol/L) Insufficiency 20 - 30 ng/mL (50 - 75 nmol/L) Sufficiency 30 - 100 ng/mL (75 - 250 nmol/L) Toxicity >100 ng/mL (>250 nmol/L) Absolute neutrophil countOrd ered By: aCrla Crane on 07-15-2024 Neutrophils (Bld) [#/Vol] 2.7 10*3/uL 2.0-7.7 [facility] Albumin to globulin ratioOrd ered By: Carla Crane on 07-15-2024 Albumin/Globulin [Mass ratio] 1.0 {ratio} Normal 0.9-2.4 [facility] Comment on above: Order Comment: 414-2 Performed By: #### L 500.4050, L506.1000, L501.9985, L501.7900, L503.0105, L501.5200, L100.0100 ####[facility] [address] [place], [address] Basophil percentageOrdered B y: Carla Crane on 07-15-2024 Basophils/100 WBC (Bld) 1.4 % High 0-1 [facility] Bilirubin, totalOrdered By: Carla Crane on 07-15-2024 Bilirubin [Mass/Vol] 0.30 mg/dL Normal 0.20-1.00 [facility] Comment on above: For patients on eltr ombopag therapy, use of Dimension [place] TBIL is not recommended. Order Comment: 414-2 Result Comment: For patients on eltrombopag therapy, use of Dimension [place] TBIL is not recommended. Performed By: #### L 500.4050, L506.1000, L501.9985, L501.7900, L503.0105, L501.5200, L100.0100 ####[facility] [address] [place], [address](314) Blood urea nitrogen (BUN)/cr eatinine ratioOrdered By: Carla Crane on 07-15-2024 Urea nitrogen/Creatinine [Mass ratio] 25.4 mg/mg High 10-20 [facility] CBC W/Diff, Automatedon 06-20 Absolute Lymph 1.38 X10 3/uL Normal 0.83-4.51 [facility] Comment on above: Order Comment: 414-2 Performed By: #### L 500.4050, L506.1000, L501.9985, L501.7900, L503.0105, L501.5200, L100.0100 ####[facility] [address] [place], [address](630) Absolute Neut 2.7 X10 3/uL Normal 2.0-7.7 [facility] Comment on above: Order Comment: 414-2 Performed By: #### L 500.4050, L506.1000, L501.9985, L501.7900, L503.0105, L501.5200, L100.0100 ####[facility] [address] [place], [place], [phone](089) Basophils/100 WBC (Bld) 1.4 % High 0-1 [facility] Comment on above: Order Comment: 414-2 Performed By: #### L 500.4050, L506.1000, L501.9985, L501.7900, L503.0105, L501.5200, L100.0100 ####[facility] [address] [place], [address] Eosinophils/100 WBC (Bld) 9.4 % High 0-5 [facility] Comment on above: Order Comment: 414-2 Performed By: #### L 500.4050, L506.1000, L501.9985, L501.7900, L503.0105, L501.5200, L100.0100 ####[facility] [address] [place], [address] Erythrocyte distribution width (RBC) [Ratio] 12.8 % Normal 11.6-14.6 [facility] Comment on above: Order Comment: 414-2 Performed By: #### L 500.4050, L506.1000, L501.9985, L501.7900, L503.0105, L501.5200, L100.0100 ####[facility] [address] [place], [address] Hematocrit (Bld) [Volume fraction] 45.8 % Normal 40-54 [facility] Comment on above: Order Comment: 414-2 Performed By: #### L 500.4050, L506.1000, L501.9985, L501.7900, L503.0105, L501.5200, L100.0100 ####[facility] [address] [place], [address] Hemoglobin (Bld) [Mass/Vol] 14.8 g/dL Normal 13.0-16.5 [facility] Comment on above: Order Comment: 414-2 Performed By: #### L 500.4050, L506.1000, L501.9985, L501.7900, L503.0105, L501.5200, L100.0100 ####[facility] [address] [place], [address] IG% 0.400 Normal 0.0-0.9 [facility] Comment on above: Order Comment: 414-2 Result Comment: IG% - Immature Granulocytes (promyelocytes, myelocytes andmetamyelocytes) > 1% indicates that a LEFT SHIFT is Present. Performed By: #### L 500.4050, L506.1000, L501.9985, L501.7900, L503.0105, L501.5200, L100.0100 ####[facility] [address] [place], [address] Lymphocytes/100 WBC (Bld) 26.9 % Normal 19-41 [facility] Comment on above: Order Comment: 414-2 Performed By: #### L 500.4050, L506.1000, L501.9985, L501.7900, L503.0105, L501.5200, L100.0100 ####[facility] [address] [place], [address] MCH (RBC) [Entitic mass] 31.2 pg Normal 27.0-32.0 [facility] Comment on above: Order Comment: 414-2 Performed By: #### L 500.4050, L506.1000, L501.9985, L501.7900, L503.0105, L501.5200, L100.0100 ####[facility] [address] [place], [address] MCHC (RBC) [Mass/Vol] 32.3 g/dL Normal 32-36 [facility] Comment on above: Order Comment: 414-2 Performed By: #### L 500.4050, L506.1000, L501.9985, L501.7900, L503.0105, L501.5200, L100.0100 ####[facility] [address] [place], [address] MCV (RBC) [Entitic vol] 96.4 fL High 80-94 [facility] Comment on above: Order Comment: 414-2 Performed By: #### L 500.4050, L506.1000, L501.9985, L501.7900, L503.0105, L501.5200, L100.0100 ####[facility] [address] [place], [address] Monocytes/100 WBC (Bld) 8.8 % Normal 0-10 [facility] Comment on above: Order Comment: 414-2 Performed By: #### L 500.4050, L506.1000, L501.9985, L501.7900, L503.0105, L501.5200, L100.0100 ####[facility] [address] [place], [address] Neutrophils/100 WBC (Bld) 53.1 % Normal 47-70 [facility] Comment on above: Order Comment: 414-2 Performed By: #### L 500.4050, L506.1000, L501.9985, L501.7900, L503.0105, L501.5200, L100.0100 ####[facility] [address] [place], [address] Nucleated RBC (Bld) [#/Vol] 0 10*3/uL Normal 0-5 [facility] Comment on above: Order Comment: 414-2 Performed By: #### L 500.4050, L506.1000, L501.9985, L501.7900, L503.0105, L501.5200, L100.0100 ####[facility] [address] [place], [address] Platelet mean volume (Bld) [Entitic vol] 9.6 fL Normal 6.2-12.0 [facility] Comment on above: Order Comment: 414-2 Performed By: #### L 500.4050, L506.1000, L501.9985, L501.7900, L503.0105, L501.5200, L100.0100 ####[facility] [address] [place], [address] Platelets (Bld) [#/Vol] 295 10*3/uL Normal 150-450 [facility] Comment on above: Order Comment: 414-2 Performed By: #### L 500.4050, L506.1000, L501.9985, L501.7900, L503.0105, L501.5200, L100.0100 ####[facility] [address] [place], [address] RBC (Bld) [#/Vol] 4.75 10*6/uL Normal 4.6-6.2 [facility] Comment on above: Order Comment: 414-2 Performed By: #### L 500.4050, L506.1000, L501.9985, L501.7900, L503.0105, L501.5200, L100.0100 ####[facility] [address] [place], [address] RDW SD 45.4 fl High 35.1-43.9 [facility] Comment on above: Order Comment: 414-2 Performed By: #### L 500.4050, L506.1000, L501.9985, L501.7900, L503.0105, L501.5200, L100.0100 ####[facility] [address] [place], [address] WBC (Bld) [#/Vol] 5.1 10*3/uL Normal 4.4-11.0 [facility] Comment on above: Order Comment: 414-2 Performed By: #### L 500.4050, L506.1000, L501.9985, L501.7900, L503.0105, L501.5200, L100.0100 ####[facility] [address] [place], [address] Carbamazepine (Tegretol)on 0 07-15-2024 CARBAMAZEPINE 7.0 ug/mL Normal 4.0-12.0 [facility] Comment on above: Order Comment: 414-2 Performed By: #### L 500.4050, L506.1000, L501.9985, L501.7900, L503.0105, L501.5200, L100.0100 ####[facility] [address] [place], [place], [id number] Carbon dioxide measurementOr dered By: Carla Crane on 07-15-2024 CO2 [Moles/Vol] 24.0 mmol/L Normal 21.0-32.0 [facility] Comment on above: Order Comment: 414-2 Performed By: #### L 500.4050, L506.1000, L501.9985, L501.7900, L503.0105, L501.5200, L100.0100 ####[facility] [address] [place], [place], [id number] Chloride measurementOrdered By: Carla Crane on 07-15-2024 Chloride [Moles/Vol] 107 mmol/L Normal 98-107 [facility] Comment on above: Order Comment: 414-2 Performed By: #### L 500.4050, L506.1000, L501.9985, L501.7900, L503.0105, L501.5200, L100.0100 ####[facility] [address] [place], [place], [id number] Comprehensive Metabolic Prof ilon 07-15-2024 ALK P 70 U/L Normal 45-117 [facility] Comment on above: Order Comment: 414-2 Performed By: #### L 500.4050, L506.1000, L501.9985, L501.7900, L503.0105, L501.5200, L100.0100 ####[facility] [address] [place], [address] BUN/CRE 25.4 RATIO High 10-20 [facility] Comment on above: Order Comment: 414-2 Performed By: #### L 500.4050, L506.1000, L501.9985, L501.7900, L503.0105, L501.5200, L100.0100 ####[facility] [address] [place], [address] CA,Total 10.1 mg/dL Normal 8.5-10.1 [facility] Comment on above: Order Comment: 414-2 Performed By: #### L 500.4050, L506.1000, L501.9985, L501.7900, L503.0105, L501.5200, L100.0100 ####[facility] [address] [place], [address] EST GFR - AA 77 mL/min Normal >60 [facility] Comment on above: Order Comment: 414-2 Result Comment: Afri can Brazilian GFR Calc Performed By: #### L 500.4050, L506.1000, L501.9985, L501.7900, L503.0105, L501.5200, L100.0100 ####[facility] [address] [place], [address] GAP 7 Normal 5-15 [facility] Comment on above: Order Comment: 414-2 Performed By: #### L 500.4050, L506.1000, L501.9985, L501.7900, L503.0105, L501.5200, L100.0100 ####[facility] [address] [place], [address] GFR/1.73 sq M.predicted among non-blacks MDRD (S/P/Bld) [Vol rate/Area] 64 mL/min/{1.73_m2} Normal >60 [facility] Comment on above: Order Comment: 414-2 Result Comment: Non- GFR Calc Performed By: #### L 500.4050, L506.1000, L501.9985, L501.7900, L503.0105, L501.5200, L100.0100 ####[facility] [address] [place], [place], [id number] T PROT 8.0 g/dL Normal 6.4-8.2 [facility] Comment on above: Order Comment: 414-2 Performed By: #### L 500.4050, L506.1000, L501.9985, L501.7900, L503.0105, L501.5200, L100.0100 ####[facility] [address] [place], [place], [id number] Comprehensive Metabolic Prof ilOrdered By: Carla Crane on 07-15-2024 AST [Catalytic activity/Vol] 23 U/L Normal 15-37 [facility] Comment on above: Order Comment: 414-2 Performed By: #### L 500.4050, L506.1000, L501.9985, L501.7900, L503.0105, L501.5200, L100.0100 ####[facility] [address] [place], [place], [id number] Eosinophil percentageOrdered By: Carla Crane on 07-15-2024 Eosinophils/100 WBC (Bld) 9.4 % High 0-5 [facility] Erythrocyte distribution wid th ratioOrdered By: Carla Crane on 07-15-2024 Erythrocyte distribution width (RBC) [Ratio] 12.8 % 11.6-14.6 [facility] Erythrocyte distribution wid th standard deviationOrdered By: Carla Crane on 07-15-2024 Erythrocyte distribution width (RBC) [Entitic vol] 45.4 fL High 35.1-43.9 [facility] Estimated glomerular filtrat ion rate (GFR) AmericanOrdered By: Carla Crane on 07-15-2024 Estimated GFR (MDRD) Amer 77 mL/min >60 [facility] Comment on above: GFR Calc Glomerular filtration rate ( GFR) estimationOrdered By: Carla Crane on 07-15-2024 Estimated GFR (MDRD) Non-Af Amer 64 mL/min >60 [facility] Comment on above: Non- GFR Calc Glucose measurementOrdered B y: Carla Crane on 07-15-2024 Glucose [Mass/Vol] 103 mg/dL Normal 74-106 [facility] Comment on above: Fasting Glucose resu lt from 100 to 125 mg/dL suggests IMPAIRED HOMEOSTASIS per A.D.A. criteria. Order Comment: 414-2 Result Comment: Fast ing Glucose result from 100 to 125 mg/dLsuggests IMPAIRED HOMEOSTASIS per A.D.A. criteria. Performed By: #### L 500.4050, L506.1000, L501.9985, L501.7900, L503.0105, L501.5200, L100.0100 ####[facility] [address] [place], [address] Hematocrit Auto (Bld) [Volum e fraction]Ordered By: Carla Crane on 07-15-2024 Hematocrit (Bld) [Volume fraction] 45.8 % 40-54 [facility] Hemoglobin A1con 07-15-2024 HbA1c (Bld) [Mass fraction] 5.6 % Normal 3.8-5.6 [facility] Comment on above: Order Comment: 414-2 Result Comment: Norm al < 5.7 % Prediabetic 5.7 - 6.4 % Diabetic >or= 6.5 % Please note range changes. Performed By: #### L 500.4050, L506.1000, L501.9985, L501.7900, L503.0105, L501.5200, L100.0100 ####[facility] [address] [place], [address] Hemoglobin A1c percentageOrd ered By: Carla Crane on 07-15-2024 HbA1c (Bld) [Mass fraction] 5.6 % 3.8-5.6 [facility] Comment on above: Normal < 5.7 % Predi abetic 5.7 - 6.4 % Diabetic >or= 6.5 % Please note range changes. Hemoglobin measurementOrdere d By: Carla Crane on 07-15-2024 Hemoglobin (Bld) [Mass/Vol] 14.8 g/dL 13.0-16.5 [facility] Immature granulocytes/100 WB C Auto (Bld)Ordered By: Carla Crane on 07-15-2024 Immature granulocytes/100 WBC (Bld) 0.400 % 0.0-0.9 [facility] Comment on above: IG% - Immature Granu locytes (promyelocytes, myelocytes and metamyelocytes) > 1% indicates that a LEFT SHIFT is Present. Lymphocytes Auto (Unsp spec) [#/Vol]Ordered By: Carla Crane on 07-15-2024 Lymphocytes (Bld) [#/Vol] 1.38 10*3/uL 0.83-4.51 [facility] Lymphocytes/100 WBC Auto (Un sp spec)Ordered By: Carla Crane on 07-15-2024 Lymphocytes/100 WBC (Bld) 26.9 % 19-41 [facility] MCV (mean corpuscular volume ) determinationOrdered By: Carla Crane on 07-15-2024 MCV (RBC) [Entitic vol] 96.4 fL High 80-94 [facility] Magnesium measurementOrdered By: Carla Crane on 07-15-2024 Magnesium [Mass/Vol] 2.1 mg/dL Normal 1.6-2.6 [facility] Comment on above: Order Comment: 414-2 Performed By: #### L 500.4050, L506.1000, L501.9985, L501.7900, L503.0105, L501.5200, L100.0100 ####[facility] [address] [place], [place], [phone] Mean corpuscular hemoglobin (MCH) determinationOrdered By: Carla Crane on 07-15-2024 MCH (RBC) [Entitic mass] 31.2 pg 27.0-32.0 [facility] Mean corpuscular hemoglobin concentration (MCHC) determinationOrdered By: Carla Crane on 07-15-2024 MCHC (RBC) [Mass/Vol] 32.3 g/dL 32-36 [facility] Mean platelet volume determi nationOrdered By: Carla Crane on 07-15-2024 Platelet mean volume (Bld) [Entitic vol] 9.6 fL 6.2-12.0 [facility] Monocyte percentageOrdered B y: Carla Crane on 07-15-2024 Monocytes/100 WBC (Bld) 8.8 % 0-10 [facility] Neutrophil percentageOrdered By: Carla Crane on 07-15-2024 Neutrophils/100 WBC (Bld) 53.1 % 47-70 [facility] Nucleated red blood cell per centageOrdered By: Carla Crane on 07-15-2024 Nucleated RBC/100 WBC (Bld) [Ratio] 0 % 0-5 [facility] Platelet countOrdered By: Wilfredo Crane on 07-15-2024 Platelets (Bld) [#/Vol] 295 10*3/uL 150-450 [facility] Potassium measurementOrdered By: Carla Crane on 07-15-2024 Potassium [Moles/Vol] 3.8 mmol/L Normal 3.5-5.1 [facility] Comment on above: Order Comment: 414-2 Performed By: #### L 500.4050, L506.1000, L501.9985, L501.7900, L503.0105, L501.5200, L100.0100 ####[facility] [address] [place], [place], [phone] RBC Auto (Bld) [#/Vol]Ordere d By: Carla Crane on 07-15-2024 RBC (Bld) [#/Vol] 4.75 10*6/uL 4.6-6.2 [facility] Serum anion gap measurementO rdered By: Carla Crane on 07-15-2024 Anion gap [Moles/Vol] 7 mmol/L 5-15 [facility] Serum globulin measurementOr dered By: Carla Crane on 07-15-2024 Globulin (S) [Mass/Vol] 4.1 g/dL Normal 2.2-4.2 [facility] Comment on above: Order Comment: 414-2 Performed By: #### L 500.4050, L506.1000, L501.9985, L501.7900, L503.0105, L501.5200, L100.0100 ####[facility] [address] [place], [place], [phone] Serum or plasma alanine saul otransferase (ALT) measurementOrdered By: Carla Crane on 07-15-2024 ALT [Catalytic activity/Vol] 37 U/L Normal 16-61 [facility] Comment on above: Order Comment: 414-2 Performed By: #### L 500.4050, L506.1000, L501.9985, L501.7900, L503.0105, L501.5200, L100.0100 ####[facility] [address] [place], [place], [address] Serum or plasma albumin luis urement (mass/volume)Ordered By: Carla Crane on 07-15-2024 Albumin [Mass/Vol] 3.9 g/dL Normal 3.2-5.0 [facility] Comment on above: Order Comment: 414-2 Performed By: #### L 500.4050, L506.1000, L501.9985, L501.7900, L503.0105, L501.5200, L100.0100 ####[facility] [address] [place], [place], [id number] Serum or plasma alkaline kathleen sphatase measurementOrdered By: Carla Crane on 07-15-2024 ALP [Catalytic activity/Vol] 70 U/L 45-117 [facility] Serum or plasma calcium luis urement (mass/volume)Ordered By: Carla Crane on 07-15-2024 Calcium [Mass/Vol] 10.1 mg/dL 8.5-10.1 [facility] Serum or plasma creatinine m easurement (mass/volume)Ordered By: Carla Crane on 07-15-2024 Creatinine [Mass/Vol] 1.18 mg/dL Normal 0.70-1.30 [facility] Comment on above: The validity of the calculated GFR & GFRAA in patients over 70 years has not been determined. Clinical correlation is essential. Order Comment: 414-2 Result Comment: The validity of the calculated GFR GFRAA in patients over70 years has not been determined. Clinical correlation isessential. Performed By: #### L 500.4050, L506.1000, L501.9985, L501.7900, L503.0105, L501.5200, L100.0100 ####[facility] [address] [place], [address] Serum or plasma urea nitroge n measurement (mass/volume)Ordered By: Carla Crane on 07-15-2024 Urea nitrogen [Mass/Vol] 30 mg/dL High 7-18 [facility] Comment on above: Order Comment: 414-2 Performed By: #### L 500.4050, L506.1000, L501.9985, L501.7900, L503.0105, L501.5200, L100.0100 ####[facility] [address] [place], [address] Sodium levelOrdered By: Luca Crane on 07-15-2024 Sodium [Moles/Vol] 138 mmol/L Normal 136-145 [facility] Comment on above: Order Comment: 414-2 Performed By: #### L 500.4050, L506.1000, L501.9985, L501.7900, L503.0105, L501.5200, L100.0100 ####[facility] [address] [place], [address] Total proteinOrdered By: Ming Crane on 07-15-2024 Protein [Mass/Vol] 8.0 g/dL 6.4-8.2 [facility] Vitamin B12on 07-15-2024 Cobalamin (Vitamin B12) [Mass/Vol] 692 pg/mL Normal 211-911 [facility] Comment on above: Order Comment: 414-2 Performed By: #### L 500.4050, L506.1000, L501.9985, L501.7900, L503.0105, L501.5200, L100.0100 ####[facility] [address] [place], [place], [id number] Vitamin B12 measurementOrder ed By: Carla Crane on 07-15-2024 Cobalamin (Vitamin B12) [Mass/Vol] 692 [...] (>250 nmol/L) Performed By: #### L 500.4050, L506.1000, L501.9985, L501.7900, L503.0105, L501.5200, L100.0100 ####[facility] [address] [place], [place], [id number] White blood cell (WBC) count Ordered By: Carla Crane on 07-15-2024 WBC (Bld) [#/Vol] 5.1 10*3/uL 4.4-11.0 [facility] carBAMazepine [Mass/Vol]Orde red By: Carla Crane on 07-15-2024 Carbamazepine (Tegretol) Level 7.0 ug/mL 4.0-12.0 [facility] Basic Metabolic Profile (BMP )on 04-15-2024 BUN Normal 7-18 [facility] Comment on above: Result Comment: Canc elled via OM: Order cancelled - Patient discharged Performed By: #### L 100.0100, L500.2500 ####[facility] [address] [place], [address] BUN/CRE Normal 10-20 [facility] Comment on above: Result Comment: Canc elled via OM: Order cancelled - Patient discharged Performed By: #### L 100.0100, L500.2500 ####[facility] [address] [place], [address] CA,Total Normal 8.5-10.1 [facility] Comment on above: Result Comment: Canc elled via OM: Order cancelled - Patient discharged Performed By: #### L 100.0100, L500.2500 ####[facility] [address] [place], [address] CL Normal 98-107 [facility] Comment on above: Result Comment: Canc elled via OM: Order cancelled - Patient discharged Performed By: #### L 100.0100, L500.2500 ####[facility] [address] [place], [address] CO2 Normal 21.0-32.0 [facility] Comment on above: Result Comment: Canc elled via OM: Order cancelled - Patient discharged Performed By: #### L 100.0100, L500.2500 ####[facility] [address] [place], [address] CREAT,SERUM Normal 0.70-1.30 [facility] Comment on above: Result Comment: Canc elled via OM: Order cancelled - Patient discharged Performed By: #### L 100.0100, L500.2500 ####[facility] [address] [place], [address] EST GFR Normal >60 [facility] Comment on above: Result Comment: Canc elled via OM: Order cancelled - Patient discharged Performed By: #### L 100.0100, L500.2500 ####[facility] [address] [place], [address] EST GFR - AA Normal >60 [facility] Comment on above: Result Comment: Canc elled via OM: Order cancelled - Patient discharged Performed By: #### L 100.0100, L500.2500 ####[facility] [address] [place], [address] GAP Normal 5-15 [facility] Comment on above: Result Comment: Canc elled via OM: Order cancelled - Patient discharged Performed By: #### L 100.0100, L500.2500 ####[facility] [address] [place], [address] GLU Normal 74-106 [facility] Comment on above: Result Comment: Canc elled via OM: Order cancelled - Patient discharged Performed By: #### L 100.0100, L500.2500 ####[facility] [address] [place], [address] Potassium Normal 3.5-5.1 [facility] Comment on above: Result Comment: Canc elled via OM: Order cancelled - Patient discharged Performed By: #### L 100.0100, L500.2500 ####[facility] [address] [place], [address] Basic Metabolic Profile (BMP) Normal 136-145 [facility] Comment on above: Result Comment: Canc elled via OM: Order cancelled - Patient discharged Performed By: #### L 100.0100, L500.2500 ####[facility] [address] [place], [address] CBC W/Diff, Automatedon 10-2 Absolute Neut Normal 2.0-7.7 [facility] Comment on above: Result Comment: Canc elled via OM: Order cancelled - Patient discharged Performed By: #### L 100.0100, L500.2500 ####[facility] [address] [place], [address] HCT Normal 40-54 [facility] Comment on above: Result Comment: Canc elled via OM: Order cancelled - Patient discharged Performed By: #### L 100.0100, L500.2500 ####[facility] [address] [place], [address] HGB Normal 13.0-16.5 [facility] Comment on above: Result Comment: Canc elled via OM: Order cancelled - Patient discharged Performed By: #### L 100.0100, L500.2500 ####[facility] [address] [place], [address] MCH Normal 27.0-32.0 [facility] Comment on above: Result Comment: Canc elled via OM: Order cancelled - Patient discharged Performed By: #### L 100.0100, L500.2500 ####[facility] [address] [place], [address] MCHC Normal 32-36 [facility] Comment on above: Result Comment: Canc elled via OM: Order cancelled - Patient discharged Performed By: #### L 100.0100, L500.2500 ####[facility] [address] [place], [address] MCV Normal 80-94 [facility] Comment on above: Result Comment: Canc elled via OM: Order cancelled - Patient discharged Performed By: #### L 100.0100, L500.2500 ####[facility] [address] [place], [address] NEUT% Normal 47-70 [facility] Comment on above: Result Comment: Canc elled via OM: Order cancelled - Patient discharged Performed By: #### L 100.0100, L500.2500 ####[facility] [address] [place], [address] PLT Normal 150-450 [facility] Comment on above: Result Comment: Canc elled via OM: Order cancelled - Patient discharged Performed By: #### L 100.0100, L500.2500 ####[facility] [address] [place], [address] RBC Normal 4.6-6.2 [facility] Comment on above: Result Comment: Canc elled via OM: Order cancelled - Patient discharged Performed By: #### L 100.0100, L500.2500 ####[facility] [address] [place], [address] RDW CV Normal 11.6-14.6 [facility] Comment on above: Result Comment: Canc elled via OM: Order cancelled - Patient discharged Performed By: #### L 100.0100, L500.2500 ####[facility] [address] [place], [address] RDW SD Normal 35.1-43.9 [facility] Comment on above: Result Comment: Canc elled via OM: Order cancelled - Patient discharged Performed By: #### L 100.0100, L500.2500 ####[facility] [address] [place], [address] WBC Normal 4.4-11.0 [facility] Comment on above: Result Comment: Canc elled via OM: Order cancelled - Patient discharged Performed By: #### L 100.0100, L500.2500 ####[facility] [address] [place], [address] Basic Metabolic Profile (BMP )on 04-14-2024 BUN Normal 7-18 [facility] Comment on above: Result Comment: Canc elled via OM: Order cancelled - Patient discharged Performed By: #### L 100.0100, L500.2500 ####[facility] [address] [place], [address] BUN/CRE Normal 10-20 [facility] Comment on above: Result Comment: Canc elled via OM: Order cancelled - Patient discharged Performed By: #### L 100.0100, L500.2500 ####[facility] [address] [place], [address] CA,Total Normal 8.5-10.1 [facility] Comment on above: Result Comment: Canc elled via OM: Order cancelled - Patient discharged Performed By: #### L 100.0100, L500.2500 ####[facility] [address] [place], [address] CL Normal 98-107 [facility] Comment on above: Result Comment: Canc elled via OM: Order cancelled - Patient discharged Performed By: #### L 100.0100, L500.2500 ####[facility] [address] [place], [address] CO2 Normal 21.0-32.0 [facility] Comment on above: Result Comment: Canc elled via OM: Order cancelled - Patient discharged Performed By: #### L 100.0100, L500.2500 ####[facility] [address] [place], [address] CREAT,SERUM Normal 0.70-1.30 [facility] Comment on above: Result Comment: Canc elled via OM: Order cancelled - Patient discharged Performed By: #### L 100.0100, L500.2500 ####[facility] [address] [place], [address] EST GFR Normal >60 [facility] Comment on above: Result Comment: Canc elled via OM: Order cancelled - Patient discharged Performed By: #### L 100.0100, L500.2500 ####[facility] [address] [place], [address] EST GFR - AA Normal >60 [facility] Comment on above: Result Comment: Canc elled via OM: Order cancelled - Patient discharged Performed By: #### L 100.0100, L500.2500 ####[facility] [address] [place], [address] GAP Normal 5-15 [facility] Comment on above: Result Comment: Canc elled via OM: Order cancelled - Patient discharged Performed By: #### L 100.0100, L500.2500 ####[facility] [address] [place], [address] GLU Normal 74-106 [facility] Comment on above: Result Comment: Canc elled via OM: Order cancelled - Patient discharged Performed By: #### L 100.0100, L500.2500 ####[facility] [address] [place], [address] Potassium Normal 3.5-5.1 [facility] Comment on above: Result Comment: Canc elled via OM: Order cancelled - Patient discharged Performed By: #### L 100.0100, L500.2500 ####[facility] [address] [place], [address] Basic Metabolic Profile (BMP) Normal 136-145 [facility] Comment on above: Result Comment: Canc elled via OM: Order cancelled - Patient discharged Performed By: #### L 100.0100, L500.2500 ####[facility] [address] [place], [address] CBC W/Diff, Automatedon 10-2 Absolute Neut Normal 2.0-7.7 [facility] Comment on above: Result Comment: Canc elled via OM: Order cancelled - Patient discharged Performed By: #### L 100.0100, L500.2500 ####[facility] [address] [place], [address] HCT Normal 40-54 [facility] Comment on above: Result Comment: Canc elled via OM: Order cancelled - Patient discharged Performed By: #### L 100.0100, L500.2500 ####[facility] [address] [place], [address] HGB Normal 13.0-16.5 [facility] Comment on above: Result Comment: Canc elled via OM: Order cancelled - Patient discharged Performed By: #### L 100.0100, L500.2500 ####[facility] [address] [place], [address] MCH Normal 27.0-32.0 [facility] Comment on above: Result Comment: Canc elled via OM: Order cancelled - Patient discharged Performed By: #### L 100.0100, L500.2500 ####[facility] [address] [place], [address] MCHC Normal 32-36 [facility] Comment on above: Result Comment: Canc elled via OM: Order cancelled - Patient discharged Performed By: #### L 100.0100, L500.2500 ####[facility] [address] [place], [address] MCV Normal 80-94 [facility] Comment on above: Result Comment: Canc elled via OM: Order cancelled - Patient discharged Performed By: #### L 100.0100, L500.2500 ####[facility] [address] [place], [address] NEUT% Normal 47-70 [facility] Comment on above: Result Comment: Canc elled via OM: Order cancelled - Patient discharged Performed By: #### L 100.0100, L500.2500 ####[facility] [address] [place], [address] PLT Normal 150-450 [facility] Comment on above: Result Comment: Canc elled via OM: Order cancelled - Patient discharged Performed By: #### L 100.0100, L500.2500 ####[facility] [address] [place], [address] RBC Normal 4.6-6.2 [facility] Comment on above: Result Comment: Canc elled via OM: Order cancelled - Patient discharged Performed By: #### L 100.0100, L500.2500 ####[facility] [address] [place], [address] RDW CV Normal 11.6-14.6 [facility] Comment on above: Result Comment: Canc elled via OM: Order cancelled - Patient discharged Performed By: #### L 100.0100, L500.2500 ####[facility] [address] [place], [address] RDW SD Normal 35.1-43.9 [facility] Comment on above: Result Comment: Canc elled via OM: Order cancelled - Patient discharged Performed By: #### L 100.0100, L500.2500 ####[facility] [address] [place], [address] WBC Normal 4.4-11.0 [facility] Comment on above: Result Comment: Canc elled via OM: Order cancelled - Patient discharged Performed By: #### L 100.0100, L500.2500 ####[facility] [address] [place], [address] UA DIP, URINE (POC)on 2023 BILIRUBIN UA (POCT) Negative Negative [facility] CLARITY UA (POCT) Cloudy [facility] COLOR UA (POCT) Yellow [facility] GLUCOSE UA (POCT) Negative Negative mg/dL [facility] Hemoglobin Ql (U) Negative Negative [facility] Interpretation and review of laboratory results Abnormal [facility] KETONE UA (POCT) Trace Negative mg/dL [facility] LEUKOCYTES UA (POCT) Trace Abnormal Negative [facility] NITRITE UA (POCT) Positive Abnormal Negative [facility] PH UA (POCT) 6.0 4.5 - 8.0 [facility] Protein Ql (U) 100 mg/dL Abnormal Negative [facility] SPECIFIC GRAVITY UA (POCT) 1.025 1.005 - 1.030 [facility] UROBILINOGEN UA (POCT) 0.2 Malaika l E.U./dL [facility] Location:[facility], [address] [facility], [place], [place], [address] [place] [address] POINT OF CARE [facility] Absolute lymphocyte countOrd ered By: Brody Maynard on 07-31-2023 Lymphocytes Auto (Unsp spec) [#/Vol] 0.39 10*3/uL 0.83-4.51 [facility] Automated lymphocyte count a s percentage of total leukocytesOrdered By: Brody Maynard on 07-31-2023 Lymphocytes/100 WBC Auto (Unsp spec) 7.1 % 19-41 [facility] Basophil percentageOrdered B y: Brody Maynard on 07-31-2023 Basophil percentage 12.6 g/dL 13.0-16.5 [facility] Basophil percentage 113 mg/dL 74-106 [facility] Basophil percentage 139 mmol/L 136-145 [facility] Basophil percentage 4.0 mmol/L 3.5-5.1 [facility] Basophil percentage 102 mmol/L 98-107 [facility] Basophils (Bld) [#/Vol] 5.5 10*3/uL 4.4-11.0 [facility] [...] 07-31-2023 RBC (Bld) [#/Vol] 3.85 10*6/uL 4.6-6.2 [facility] Serum or plasma calcium luis urement (mass/volume)Ordered By: Brody Maynard on 07-31-2023 Calcium [Mass/Vol] 8.6 mg/dL 8.5-10.1 [facility] Serum or plasma creatinine m easurement (mass/volume)Ordered By: Brody Maynard on 07-31-2023 Creatinine [Mass/Vol] 1.01 mg/dL 0.70-1.30 [facility] Serum or plasma urea nitroge n measurement [...] [facility] Base excessOrdered By: ED [place] OVIDER on 07-30-2023 Base excess Calc (BldV) [Moles/Vol] 2 mmol/L -1.0-3.5 [facility] Basophil percentageOrdered B y: Андрей Ng on 07-30-2023 Basophil percentage 0 SEEN /hpf 0-5 [facility] Basophil percentage 13.3 g/dL 13.0-16.5 [facility] Basophil percentage 114 mg/dL 74-106 [facility] Basophil percentage 138 mmol/L 136-145 [facility] Basophil percentage 4.2 mmol/L 3.5-5.1 [facility] Basophil percentage 102 mmol/L 98-107 [facility] Basophils (Bld) [#/Vol] 5.5 10*3/uL 4.4-11.0 [facility] [...] Mucus Ql (Urine sed) 0 SEEN /hpf [facility] Nitrite Test strip Ql (U)Ord ered By: [...] [facility] PCO2 venousOrdered By: ED [place] OVIDER on 07-30-2023 CO2 (BldV) [Partial pressure] [...] 07-30-2023 RBC (Bld) [#/Vol] 4.07 10*6/uL 4.6-6.2 [facility] Serum or plasma calcium luis urement (mass/volume)Ordered By: Андрей Ng on 07-30-2023 Calcium [Mass/Vol] 9.2 mg/dL 8.5-10.1 [facility] Serum or plasma creatinine m easurement (mass/volume)Ordered By: Андрей Ng on 07-30-2023 Creatinine [Mass/Vol] 1.14 mg/dL 0.70-1.30 [facility] Serum or plasma urea nitroge n measurement [...] 07-30-2023 Urobilinogen Ql (U) Normal mg/dl Normal [facility] Venous blood pH measurementO rdered By: ED PROVIDER on 07-30-2023 pH (BldV) 7.36 [pH] 7.32-7.42 [facility] Basophil percentageOrdered B y: Андрей Cooley on 07-27-2023 Basophil percentage 12.8 g/dL 13.0-16.5 [facility] Basophil percentage 103 mg/dL 74-106 [facility] Basophil percentage 141 mmol/L 136-145 [facility] Basophil percentage 3.7 mmol/L 3.5-5.1 [facility] Basophil percentage 110 mmol/L 98-107 [facility] Basophils (Bld) [#/Vol] 6.8 10*3/uL 4.4-11.0 [facility] [...] 07-27-2023 RBC (Bld) [#/Vol] 3.95 10*6/uL 4.6-6.2 [facility] Serum or plasma calcium luis urement (mass/volume)Ordered By: Андрей Cooley on 07-27-2023 Calcium [Mass/Vol] 9.5 mg/dL 8.5-10.1 [facility] Serum or plasma creatinine m easurement (mass/volume)Ordered By: Андрей Cooley on 07-27-2023 Creatinine [Mass/Vol] 1.32 mg/dL 0.70-1.30 [facility] Serum or plasma urea nitroge n measurement [...] on 07-25-2023 Basophil percentage 14.3 g/dL 13.0-16.5 [facility] Basophil percentage 126 mg/dL 74-106 [facility] Basophil percentage 138 mmol/L 136-145 [facility] Basophil percentage 3.5 mmol/L 3.5-5.1 [facility] Basophil percentage 105 mmol/L 98-107 [facility] Basophils (Bld) [#/Vol] 6.9 10*3/uL 4.4-11.0 [facility] [...] Auto (Bld) [Volum e fraction]Ordered By: Андрей Cooely on 07-25-2023 Hematocrit (Bld) [Volume fraction] 41.9 [...] 07-25-2023 RBC (Bld) [#/Vol] 4.40 10*6/uL 4.6-6.2 [facility] Serum or plasma calcium luis urement (mass/volume)Ordered By: Андрей Cooley on 07-25-2023 Calcium [Mass/Vol] 9.3 mg/dL 8.5-10.1 [facility] Serum or plasma creatinine m easurement (mass/volume)Ordered By: Андрей Cooley on 07-25-2023 Creatinine [Mass/Vol] 1.21 mg/dL 0.70-1.30 [facility] Serum or plasma urea nitroge n measurement [...] 1.0 % 0-1 [facility] Chloride [Moles/Vol] 103 mmol/L 98-107 [facility] Eosinophils/100 WBC (Bld) 1.1 % 0-5 [facility] Glucose [Mass/Vol] 134 mg/dL 74-106 [facility] Comment on above: Fasting Glucose resu lt greater than or equal to 126 mg/dL suggests DIABETES MELLITUS per A.D.A. criteria. Hemoglobin (Bld) [Mass/Vol] 16.2 g/dL 13.0-16.5 [facility] Monocytes/100 WBC (Bld) 7.3 % 0-10 [facility] Neutrophils (Bld) [#/Vol] 5.3 10*3/uL 2.0-7.7 [facility] Neutrophils/100 WBC (Bld) 74.0 % 47-70 [facility] Potassium [Moles/Vol] 3.8 mmol/L 3.5-5.1 [facility] Comment on above: Moderate Hemolysis, Result may be falsely increased. Sodium [Moles/Vol] 139 mmol/L 136-145 [facility] WBC (Bld) [#/Vol] 7.1 10*3/uL 4.4-11.0 [facility] Determination of erythrocyte mean corpuscular volume (MCV)Ordered By: Raul Melchor on 07-24-2023 MCV (RBC) [Entitic vol] 94.8 fL 80-94 [facility] Erythrocyte distribution wid th ratioOrdered By: Raul [...] Hospital MCHC (RBC) [Mass/Vol] 34.2 g/dL 32-36 [facility] Nucleated RBC/100 WBC (Bld) [Ratio] 0 % [...] 07-24-2023 RBC (Bld) [#/Vol] 5.00 10*6/uL 4.6-6.2 [facility] Serum or plasma calcium luis urement (mass/volume)Ordered By: Raul Melchor on 07-24-2023 Calcium [Mass/Vol] 9.8 mg/dL 8.5-10.1 [facility] Serum or plasma creatinine m easurement (mass/volume)Ordered By: Raul Melchor on 07-24-2023 Creatinine [Mass/Vol] 1.28 mg/dL 0.70-1.30 [facility] Comment on above: The validity of the [...] Hospital UAon 07-10-2023 Color (U) Yellow Normal [facility] ([place]) Comment on above: Performed By: #### U A #### [address] [address] Glucose (U) [Mass/Vol] Negative Normal Negative [facility] ([place]) Comment on above: Performed By: #### U A #### [address] [address] Ketones Ql (U) Negative Normal Neg-Trace [facility] ([place]) Comment on above: Performed By: #### U A #### [address] [address] UA Appear Clear Normal Clear [facility] ([place]) Comment on above: Performed By: #### U A #### [address] [address] UA Blood Negative Normal Neg-Trace [facility] ([place]) Comment on above: Performed By: #### U A #### [address] [address] UA Leuk Est Negative Normal Negative [facility] ([place]) Comment on above: Performed By: #### U A #### [address] [address] UA Nitrite Negative Normal Negative [facility] ([place]) Comment on above: Performed By: #### U A #### [place] [address] UA pH 5.5 Normal 5.0 - 8.0 [facility] ([place]) Comment on above: Performed By: #### U A #### [place] [address] UA Protein 30 mg/dL Normal Negative [facility] ([place]) Comment on above: Performed By: #### U A #### [place] [address] UA Spec Grav 1.020 Normal 1.006-1.029 [facility] ([place]) Comment on above: Performed By: #### U A #### [place] [address] UA Specimen Type Void Normal [facility] ([place]) Comment on above: Performed By: #### U A #### [place] [address] UA Urobilinogen 0.2 E.U./dL Normal 0.2-1.0 [facility] ([place]) Comment on above: Performed By: #### U A #### [place] [address] Urobilinogen (U) [Mass/Vol] Negative Normal Neg-Trace [facility] ([place]) Comment on above: Performed By: #### U A #### [place] [address] Absolute lymphocyte countOrd ered By: Daija Morton on 06-14-2023 Lymphocytes Auto (Unsp spec) [#/Vol] 1.09 10*3/uL 0.83-4.51 [facility] Basophil percentageOrdered B y: Daija Morton on 06-14-2023 Basophil percentage 108 mg/dL 74-106 [facility] Basophil percentage 139 mmol/L 136-145 [facility] Basophil percentage 4.2 mmol/L 3.5-5.1 [facility] Basophil percentage 104 mmol/L 98-107 [facility] Basophils (Bld) [#/Vol] 6.5 10*3/uL 4.4-11.0 [facility] Basophils (Bld) [#/Vol] 4.7 10*3/uL 2.0-7.7 [facility] Basophils/100 WBC (Bld) 1.4 % 0-1 [facility] Basophils/100 WBC (Bld) 72.2 % 47-70 [facility] Basophils/100 WBC (Bld) 2.0 % 0-5 [facility] Chloride [Moles/Vol] 104 mmol/L 98-107 [facility] Eosinophils/100 WBC (Bld) 2.0 % 0-5 [facility] Glucose [Mass/Vol] 108 mg/dL 74-106 [facility] Comment on above: Fasting Glucose resu lt from 100 to 125 mg/dL suggests IMPAIRED HOMEOSTASIS per A.D.A. criteria. Neutrophils (Bld) [#/Vol] 4.7 10*3/uL 2.0-7.7 [facility] Neutrophils/100 WBC (Bld) 72.2 % 47-70 [facility] Potassium [Moles/Vol] 4.2 mmol/L 3.5-5.1 [facility] Sodium [Moles/Vol] 139 mmol/L 136-145 [facility] WBC (Bld) [#/Vol] 6.5 10*3/uL 4.4-11.0 [facility] Blood erythrocytes count (nu mber/volume)Ordered By: Daija Morton on 06-14-2023 RBC (Bld) [#/Vol] 4.73 10*6/uL 4.6-6.2 [facility] Blood hemoglobin measurement (mass/volume)Ordered By: Daija Morton [...] 06-14-2023 MCHC (RBC) [Mass/Vol] 34.6 g/dL 32-36 [facility] No Panel InformationOrdered By: Daija Morton on [...] on 06-14-2023 Calcium [Mass/Vol] 9.8 mg/dL 8.5-10.1 [facility] Serum or plasma creatinine m easurement (mass/volume)Ordered By: Daija Morton on 06-14-2023 Creatinine [Mass/Vol] 1.24 mg/dL 0.70-1.30 [facility] Comment on above: The validity of the [...] on 05-19-2023 Basophil percentage 100 mg/dL 74-106 [facility] Basophil percentage 6.5 g/dL 6.4-8.2 [facility] Basophil percentage 0.30 mg/dL 0.20-1.00 [facility] Basophil percentage 141 mmol/L 136-145 [facility] Basophil percentage 3.6 mmol/L 3.5-5.1 [facility] Basophil percentage 109 mmol/L 98-107 [facility] Basophils (Bld) [#/Vol] 6.2 10*3/uL 4.4-11.0 [facility] Bilirubin [Mass/Vol] 0.30 mg/dL 0.20-1.00 [facility] Comment on above: For patients on eltr ombopag therapy, use of Dimension [place] TBIL is not recommended. Chloride [Moles/Vol] 109 mmol/L 98-107 [facility] Glucose [Mass/Vol] 100 mg/dL 74-106 [facility] Comment on above: Fasting Glucose resu lt from 100 to 125 mg/dL suggests IMPAIRED HOMEOSTASIS per A.D.A. criteria. Potassium [Moles/Vol] 3.6 mmol/L 3.5-5.1 [facility] Protein [Mass/Vol] 6.5 g/dL 6.4-8.2 [facility] Sodium [Moles/Vol] 141 mmol/L 136-145 [facility] WBC (Bld) [#/Vol] 6.2 10*3/uL 4.4-11.0 [facility] Blood erythrocytes count (nu mber/volume)Ordered By: Андрей Cooley on 05-19-2023 RBC (Bld) [#/Vol] 4.24 10*6/uL 4.6-6.2 [facility] Blood hemoglobin measurement (mass/volume)Ordered By: Андрей Cooley [...] [facility] ALT [Catalytic activity/Vol] 33 U/L 16- [facility] CO2 [Moles/Vol] 29.0 [...] 05-19-2023 MCHC (RBC) [Mass/Vol] 32.7 g/dL 32-36 [facility] No Panel InformationOrdered By: Андрей Cooley on [...] >60 [facility] 18.6 RATIO 04-07 [facility] 3.1 g/dL 2.2-4.2 [facility] 72 U/L 45-117 [facility] 33 U/L 16- [facility] 29.0 mmol/L 21.0-32.0 [facility] Platelets bldOrdered By: Italia Cooley on 05-19-2023 Platelets (Bld) [#/Vol] 284 10*3/uL 150-450 [facility] Serum or plasma albumin luis urement (mass/volume)Ordered By: Андрей Cooley on 05-19-2023 Albumin [Mass/Vol] 3.4 g/dL 3.2-5.0 [facility] Serum or plasma albumin/glob ulin mass ratioOrdered By: Андрей Cooley on 05-19-2023 Albumin/Globulin [Mass ratio] 1.1 {ratio} 0.9-2.4 [facility] Serum or plasma calcium luis urement (mass/volume)Ordered By: Андрей Cooley on 05-19-2023 Calcium [Mass/Vol] 8.7 mg/dL 8.5-10.1 [facility] Serum or plasma creatinine m easurement (mass/volume)Ordered By: Андрей Cooley on 05-19-2023 Creatinine [Mass/Vol] 1.18 mg/dL 0.70-1.30 [facility] Comment on above: The validity of the [...] on 04-19-2023 Basophil percentage 92 mg/dL 74-106 [facility] Basophil percentage 6.8 g/dL 6.4-8.2 [facility] Basophil percentage 0.20 mg/dL 0.20-1.00 [facility] Basophil percentage 140 mmol/L 136-145 [facility] Basophil percentage 4.0 mmol/L 3.5-5.1 [facility] Basophil percentage 105 mmol/L 98-107 [facility] Basophils (Bld) [#/Vol] 6.2 10*3/uL 4.4-11.0 [facility] Bilirubin [Mass/Vol] 0.20 mg/dL 0.20-1.00 [facility] Comment on above: For patients on eltr ombopag therapy, use of Dimension [place] TBIL is not recommended. Chloride [Moles/Vol] 105 mmol/L 98-107 [facility] Glucose [Mass/Vol] 92 mg/dL 74-106 [facility] Potassium [Moles/Vol] 4.0 mmol/L 3.5-5.1 [facility] Protein [Mass/Vol] 6.8 g/dL 6.4-8.2 [facility] Sodium [Moles/Vol] 140 mmol/L 136-145 [facility] WBC (Bld) [#/Vol] 6.2 10*3/uL 4.4-11.0 [facility] Blood erythrocytes count (nu mber/volume)Ordered By: Андрей Cooley on 04-19-2023 RBC (Bld) [#/Vol] 4.26 10*6/uL 4.6-6.2 [facility] Blood hemoglobin measurement (mass/volume)Ordered By: Андрей Cooley [...] 04-19-2023 MCHC (RBC) [Mass/Vol] 32.1 g/dL 32-36 [facility] No Panel InformationOrdered By: Андрей Cooley on [...] on 04-19-2023 Albumin [Mass/Vol] 3.3 g/dL 3.2-5.0 [facility] Serum or plasma albumin/glob ulin mass ratioOrdered By: Андрей Cooley on 04-19-2023 Albumin/Globulin [Mass ratio] 0.9 {ratio} 0.9-2.4 [facility] Serum or plasma calcium luis urement (mass/volume)Ordered By: Андрей Cooley on 04-19-2023 Calcium [Mass/Vol] 9.1 mg/dL 8.5-10.1 [facility] Serum or plasma creatinine m easurement (mass/volume)Ordered By: Андрей Cooley on 04-19-2023 Creatinine [Mass/Vol] 1.08 mg/dL 0.70-1.30 [facility] Comment on above: The validity of the [...] on 04-12-2023 Basophil percentage 92 mg/dL 74-106 [facility] Basophil percentage 6.4 g/dL 6.4-8.2 [facility] Basophil percentage 0.10 mg/dL 0.20-1.00 [facility] Basophil percentage 139 mmol/L 136-145 [facility] Basophil percentage 4.1 mmol/L 3.5-5.1 [facility] Basophil percentage 107 mmol/L 98-107 [facility] Basophils (Bld) [#/Vol] 7.8 10*3/uL 4.4-11.0 [facility] Bilirubin [Mass/Vol] 0.10 mg/dL 0.20-1.00 [facility] Comment on above: For patients on eltr ombopag therapy, use of Dimension [place] TBIL is not recommended. Chloride [Moles/Vol] 107 mmol/L 98-107 [facility] Glucose [Mass/Vol] 92 mg/dL 74-106 [facility] Potassium [Moles/Vol] 4.1 mmol/L 3.5-5.1 [facility] Protein [Mass/Vol] 6.4 g/dL 6.4-8.2 [facility] Sodium [Moles/Vol] 139 mmol/L 136-145 [facility] WBC (Bld) [#/Vol] 7.8 10*3/uL 4.4-11.0 [facility] Blood erythrocytes count (nu mber/volume)Ordered By: Андрей Cooley on 04-12-2023 RBC (Bld) [#/Vol] 4.04 10*6/uL 4.6-6.2 [facility] Blood hemoglobin measurement (mass/volume)Ordered By: Андрей Cooley [...] Center Urea nitrogen/Creatinine [Mass ratio] 20.2 mg/mg - [facility] Laboratory - Hematology [...] 04-12-2023 MCHC (RBC) [Mass/Vol] 33.5 g/dL 32-36 [facility] No Panel InformationOrdered By: Андрей Cooley on [...] >60 [facility] 20.2 RATIO 04-07 [facility] 3.4 g/dL 2.2-4.2 [...] on 04-12-2023 Albumin [Mass/Vol] 3.0 g/dL 3.2-5.0 [facility] Serum or plasma albumin/glob ulin mass ratioOrdered By: Андрей Cooley on 04-12-2023 Albumin/Globulin [Mass ratio] 0.9 {ratio} 0.9-2.4 [facility] Serum or plasma calcium luis urement (mass/volume)Ordered By: Андрей Cooley on 04-12-2023 Calcium [Mass/Vol] 8.7 mg/dL 8.5-10.1 [facility] Serum or plasma creatinine m easurement (mass/volume)Ordered By: Андрей Cooley on 04-12-2023 Creatinine [Mass/Vol] 1.19 mg/dL 0.70-1.30 [facility] Comment on above: The validity of the [...] on 04-05-2023 Basophil percentage 105 mg/dL 74-106 [facility] Basophil percentage 6.7 g/dL 6.4-8.2 [facility] Basophil percentage 0.20 mg/dL 0.20-1.00 [facility] Basophil percentage 139 mmol/L 136-145 [facility] Basophil percentage 3.9 mmol/L 3.5-5.1 [facility] Basophil percentage 105 mmol/L 98-107 [facility] Basophils (Bld) [#/Vol] 5.8 10*3/uL 4.4-11.0 [facility] Bilirubin [Mass/Vol] 0.20 mg/dL 0.20-1.00 [facility] Comment on above: For patients on eltr ombopag therapy, use of Dimension [place] TBIL is not recommended. Chloride [Moles/Vol] 105 mmol/L 98-107 [facility] Glucose [Mass/Vol] 105 mg/dL 74-106 [facility] Comment on above: Fasting Glucose resu lt from 100 to 125 mg/dL suggests IMPAIRED HOMEOSTASIS per A.D.A. criteria. Potassium [Moles/Vol] 3.9 mmol/L 3.5-5.1 [facility] Protein [Mass/Vol] 6.7 g/dL 6.4-8.2 [facility] Sodium [Moles/Vol] 139 mmol/L 136-145 [facility] WBC (Bld) [#/Vol] 5.8 10*3/uL 4.4-11.0 [facility] Blood erythrocytes count (nu mber/volume)Ordered By: Андрей Cooley on 04-05-2023 RBC (Bld) [#/Vol] 4.40 10*6/uL 4.6-6.2 [facility] Blood hemoglobin measurement (mass/volume)Ordered By: Андрей Cooley [...] Center Urea nitrogen/Creatinine [Mass ratio] 22.0 mg/mg 10- [facility] Laboratory - Hematology [...] 04-05-2023 MCHC (RBC) [Mass/Vol] 32.6 g/dL 32-36 [facility] No Panel InformationOrdered By: Андрей Cooley on [...] on 04-05-2023 Albumin [Mass/Vol] 2.9 g/dL 3.2-5.0 [facility] Serum or plasma albumin/glob ulin mass ratioOrdered By: Андрей Cooley on 04-05-2023 Albumin/Globulin [Mass ratio] 0.8 {ratio} 0.9-2.4 [facility] Serum or plasma calcium luis urement (mass/volume)Ordered By: Андрей Cooley on 04-05-2023 Calcium [Mass/Vol] 9.3 mg/dL 8.5-10.1 [facility] Serum or plasma creatinine m easurement (mass/volume)Ordered By: Андрей Cooley on 04-05-2023 Creatinine [Mass/Vol] 1.09 mg/dL 0.70-1.30 [facility] Comment on above: The validity of the [...] on 04-04-2023 Basophil percentage 101 mg/dL 74-106 [facility] Basophil percentage 136 mmol/L 136-145 [facility] Basophil percentage 3.9 mmol/L 3.5-5.1 [facility] Basophil percentage 103 mmol/L 98-107 [facility] Basophils (Bld) [#/Vol] 6.3 10*3/uL 4.4-11.0 [facility] Basophils (Bld) [#/Vol] 4.1 10*3/uL 2.0-7.7 [facility] Basophils/100 WBC (Bld) 1.1 % 0-1 [facility] Basophils/100 WBC (Bld) 64.4 % 47-70 [facility] Basophils/100 WBC (Bld) 3.3 % 0-5 [facility] Chloride [Moles/Vol] 103 mmol/L 98-107 [facility] Eosinophils/100 WBC (Bld) 3.3 % 0-5 [facility] Glucose [Mass/Vol] 101 mg/dL 74-106 [facility] Comment on above: Fasting Glucose resu lt from 100 to 125 mg/dL suggests IMPAIRED HOMEOSTASIS per A.D.A. criteria. Neutrophils (Bld) [#/Vol] 4.1 10*3/uL 2.0-7.7 [facility] Neutrophils/100 WBC (Bld) 64.4 % 47-70 [facility] Potassium [Moles/Vol] 3.9 mmol/L 3.5-5.1 [facility] Sodium [Moles/Vol] 136 mmol/L 136-145 [facility] WBC (Bld) [#/Vol] 6.3 10*3/uL 4.4-11.0 [facility] Blood erythrocytes count (nu mber/volume)Ordered By: Frankie Galindo on 04-04-2023 RBC (Bld) [#/Vol] 4.82 10*6/uL 4.6-6.2 [facility] Blood hemoglobin measurement (mass/volume)Ordered By: Frankie Galindo on 04-04-2023 Hemoglobin (Bld) [Mass/Vol] 15.1 g/dL 13.0-16.5 [facility] Blood lymphocytes/100 leukoc ytesOrdered By: Frankie Galindo on 04-04-2023 Lymphocytes/100 WBC (Bld) 23.6 % 19-41 [facility] Blood monocytes/100 leukocyt esOrdered By: Frankie Galindo on 04-04-2023 Monocytes/100 WBC (Bld) 6.3 % 0-10 [facility] Blood platelet mean volumeOr dered By: Frankie Galindo on 04-04-2023 Platelet mean volume (Bld) [Entitic vol] 9.3 fL 6.2-12.0 [facility] Determination of erythrocyte mean corpuscular volume (MCV)Ordered By: Frankie Galindo on 04-04-2023 MCV (RBC) [Entitic vol] 96.7 fL 80-94 [facility] Hematocrit [...] 04-04-2023 MCHC (RBC) [Mass/Vol] 32.4 g/dL 32-36 [facility] No Panel InformationOrdered By: Frankie Galindo on [...] ml/min [facility] 20.3 RATIO 04-07 [facility] 29.0 mmol/L 21.0-32.0 [facility] Platelets bldOrdered By: Sebastien Galindo on 04-04-2023 Platelets (Bld) [#/Vol] 379 10*3/uL 150-450 [facility] Serum or plasma calcium luis urement (mass/volume)Ordered By: Frankie Galindo on 04-04-2023 Calcium [Mass/Vol] 9.7 mg/dL 8.5-10.1 [facility] Serum or plasma creatinine m easurement (mass/volume)Ordered By: Frankie Galindo on 04-04-2023 Creatinine [Mass/Vol] 1.28 mg/dL 0.70-1.30 [facility] Comment on above: The validity of the calculated GFR & GFRAA in patients over 70 years has not been determined. Clinical correlation is essential. Serum or plasma urea nitroge n measurement (mass/volume)Ordered By: Frankie Galindo on 04-04-2023 Urea nitrogen [Mass/Vol] 26 mg/dL 01-03 [facility] Thin prep Papanicolaou smear with manual screeningOrdered By: Frankie Galindo on 04-04-2023 Thin prep Papanicolaou smear with manual screening 4 10-31 [facility] Basophil percentageOrdered B y: Frankie Galindo on 04-02-2023 Basophil percentage 2.6 mg/dL 2.5-4.9 [facility] Laboratory - Chemistry and C hemistry - challengeOrdered By: Frankie Galindo on 04-02-2023 Magnesium [Mass/Vol] 2.0 mg/dL 1.6-2.6 [facility] No Panel InformationOrdered By: Frankie Galindo on 04-02-2023 2.0 mg/dL 1.6-2.6 [facility] Basophil percentageOrdered B y: Celia Toribio on 04-01-2023 Basophil percentage 6.5 g/dL 6.4-8.2 [facility] Basophil percentage 0.30 mg/dL 0.20-1.00 [facility] Bilirubin [Mass/Vol] 0.30 mg/dL 0.20-1.00 [facility] Comment on above: For patients on eltr ombopag therapy, use of Dimension [place] TBIL is not recommended. Protein [Mass/Vol] 6.5 g/dL 6.4-8.2 [facility] Laboratory - Chemistry and C hemistry - challengeOrdered By: Celia Toribio on 04-01-2023 ALP [Catalytic activity/Vol] 57 U/L 45-117 [facility] ALT [Catalytic activity/Vol] 21 U/L [facility] Globulin (S) [Mass/Vol] 3.9 g/dL 2.2-4.2 [facility] No Panel InformationOrdered By: Celia Toribio on 04-01-2023 3.9 g/dL 2.2-4.2 [facility] 57 U/L 45- [facility] 21 U/L [facility] Serum or plasma albumin luis urement (mass/volume)Ordered By: Celia Toribio on 04-01-2023 Albumin [Mass/Vol] 2.6 g/dL 3.2-5.0 [facility] Serum or plasma albumin/glob ulin mass ratioOrdered By: Celia Toribio on 04-01-2023 Albumin/Globulin [Mass ratio] 0.7 {ratio} 0.9-2.4 [facility] Thin prep Papanicolaou smear with manual screeningOrdered By: Celia Toribio on 04-01-2023 Thin prep Papanicolaou smear with manual screening 12 U/L 15-37 [facility] Absolute lymphocyte countOrd ered By: Huber Alvarado on 03-30-2023 Lymphocytes Auto (Unsp spec) [#/Vol] 0.93 10*3/uL 0.83-4.51 [facility] Bacteria identified Cx Nom ( U)Ordered By: Huber Alvarado on 03-30-2023 Culture, urine ESBL Escherichia coli [facility] Basophil percentageOrdered B y: Huber Alvarado on 03-30-2023 Basophil percentage 1.4 mmol/L 0.4-2.0 [facility] Lactate [Moles/Vol] 1.4 mmol/L 0.4-2.0 [facility] Basophil percentage 25-50 SEEN /hpf 0-5 [facility] Basophils/100 WBC (Bld) 0.7 % 0-1 [facility] Chloride [Moles/Vol] 99 mmol/L 98-107 [facility] Eosinophils/100 WBC (Bld) 0.0 % 0-5 [facility] Glucose [Mass/Vol] 104 mg/dL 74-106 [facility] Comment on above: Fasting Glucose resu lt from 100 to 125 mg/dL suggests IMPAIRED HOMEOSTASIS per A.D.A. criteria. Neutrophils (Bld) [#/Vol] 7.9 10*3/uL 2.0-7.7 [facility] Neutrophils/100 WBC (Bld) 79.2 % 47-70 [facility] Potassium [Moles/Vol] 4.0 mmol/L 3.5-5.1 [facility] Sodium [Moles/Vol] 134 mmol/L 136-145 [facility] WBC (Bld) [#/Vol] 10.0 10*3/uL 4.4-11.0 [facility] Bilirubin Test strip Ql (U)O rdered By: Huber Alvarado on 03-30-2023 Bilirubin Ql (U) Negative Negative [facility] Blood erythrocytes count (nu mber/volume)Ordered By: Huber Alvarado on 03-30-2023 RBC (Bld) [#/Vol] 4.81 10*6/uL 4.6-6.2 [facility] Blood hemoglobin measurement (mass/volume)Ordered By: Huber Alvarado on 03-30-2023 Hemoglobin (Bld) [Mass/Vol] 15.4 g/dL 13.0-16.5 [facility] Blood lymphocytes/100 leukoc ytesOrdered By: Huber Alvarado on 03-30-2023 Lymphocytes/100 WBC (Bld) 9.3 % 19-41 [facility] Blood monocytes/100 leukocyt esOrdered By: Huber Alvarado on 03-30-2023 Monocytes/100 WBC (Bld) 10.5 % 0-10 [facility] Blood platelet mean volumeOr dered [...] 03-30-2023 MCHC (RBC) [Mass/Vol] 32.8 g/dL 32-36 [facility] Mucus LM Ql (Urine sed)Order ed By: Huber Alvarado on 10-12-2023 Mucus Ql (Urine sed) 0 SEEN /hpf [facility] Nitrite Test strip Ql (U)Ord ered By: Huber Alvarado on 03-30-2023 Nitrite Ql (U) Negative Negative [facility] No Panel InformationOrdered By: Huber Alvarado on 03-30-2023 No growth in 5 days. [facility] Estimated GFR (MDRD) Amer 77 mL/min >60 [facility] Comment on above: GFR Calc Estimated GFR (MDRD) Non-Af Amer 64 mL/min >60 [facility] Comment on above: Non- GFR Calc Platelets bldOrdered By: Pet er Christiano on 03-30-2023 Platelets (Bld) [#/Vol] 276 10*3/uL 150-450 [facility] Protein Test strip Ql (U)Ord ered By: Huber Alvarado on 03-30-2023 Protein Ql (U) 100 mg/dl Negative [facility] Serum or plasma calcium luis urement (mass/volume)Ordered By: Huber Alvarado on 03-30-2023 Calcium [Mass/Vol] 9.8 mg/dL 8.5-10.1 [facility] Serum or plasma creatinine m easurement (mass/volume)Ordered By: Huber Alvraado on 03-30-2023 Creatinine [Mass/Vol] 1.19 mg/dL 0.70-1.30 [facility] Comment on above: The validity of the [...] 03-30-2023 Urobilinogen Ql (U) Normal mg/dl Normal [facility] INR in Blood by Coagulation assayOrdered By: Jaden Jauregui on 02-18-2023 INR Coag (Bld) [Relative time] 0.9 {INR} [facility] Laboratory - CoagulationOrde red By: Jaden Jauregui on 02-18-2023 PT Coag (PPP) [Time] 12.4 s 11.7-14.[address] [facility] [address] ABD/PELVIS W/ IV CONTRAST [...] 10/22/2022 10:33:36 PM Ordering Provider: PRIYANKA Betts [facility] ([place]) .Auto Diffon 10-22-2022 Basophil, Absolute 0.1 10 3/mcL Normal 0.0-0.2 [facility] ([place]) Comment on above: Performed By: #### A DIFF, LIP, MDW, CMP, GFR, ANEU, CBC #### [address] [id number] Basophils/100 WBC (Bld) 0.8 % Normal 0.0-2.5 [facility] ([place]) Comment on above: Performed By: #### A DIFF, LIP, MDW, CMP, GFR, ANEU, CBC #### [address] [address] Eosinophil, Absolute 0.0 10 3/mcL Normal 0.0-0.4 [facility] ([place]) Comment on above: Performed By: #### A DIFF, LIP, MDW, CMP, GFR, ANEU, CBC #### [address] [address] Eosinophils/100 WBC (Bld) 0.3 % Normal 0.0-7.0 [facility] ([place]) Comment on above: Performed By: #### A DIFF, LIP, MDW, CMP, GFR, ANEU, CBC #### [address] [address] Lymphocyte, Absolute 0.9 10 3/mcL Normal 0.8-3.9 [facility] ([place]) Comment on above: Performed By: #### A DIFF, LIP, MDW, CMP, GFR, ANEU, CBC #### [address] [address] Lymphocytes/100 WBC (Bld) 8.1 % Low 10.0-50.0 [facility] ([place]) Comment on above: Performed By: #### A DIFF, LIP, MDW, CMP, GFR, ANEU, CBC #### [address] [address] Monocyte, Absolute 0.7 10 3/mcL Normal 0.2-1.0 [facility] ([place]) Comment on above: Performed By: #### A DIFF, LIP, MDW, CMP, GFR, ANEU, CBC #### [address] [address] Monocytes/100 WBC (Bld) 6.8 % Normal 1.7-13.0 [facility] ([place]) Comment on above: Performed By: #### A DIFF, LIP, MDW, CMP, GFR, ANEU, CBC #### [address] [address] Neutrophils/100 WBC (Bld) 84.0 % High 37.0-80.0 [facility] ([place]) Comment on above: Performed By: #### A DIFF, LIP, MDW, CMP, GFR, ANEU, CBC #### [address] [address] .GFRon 10-22-2022 GFR Non- 58 ml/min/1.73sqm Normal [facility] ([place]) Comment on above: Result Comment: GFR Population [...] MDW, CMP, GFR, ANEU, CBC #### [address] [address] GFR 71 ml/min/1.73sqm Normal [facility] ([place]) Comment on above: Result Comment: GFR Population [...] LIP, MDW, CMP, GFR, ANEU, CBC #### [place] [address] .MDWon 10-22-2022 Monocyte Distribution Width 24.33 High 0.00-20.00 [facility] ([place]) Comment on above: Result Comment: For adults in ED, MDW>20.0 may be associated with a higher risk of sepsis during the first 12hrs of hospital admission Performed By: #### A DIFF, LIP, MDW, CMP, GFR, ANEU, CBC #### [place] [id number] .NEUABSon 10-22-2022 Neutrophil, Absolute 8.9 10 3/mcL High 2.9-6.2 [facility] ([place]) Comment on above: Performed By: #### A DIFF, LIP, MDW, CMP, GFR, ANEU, CBC #### [place] [address] CBCon 10-22-2022 Erythrocyte distribution width (RBC) [Ratio] 14.0 % Normal 11.5-14.5 [facility] ([place]) Comment on above: Performed By: #### A DIFF, LIP, MDW, CMP, GFR, ANEU, CBC #### [place] [address] Hematocrit (Bld) [Volume fraction] 38.9 % Low 42.0-52.0 [facility] ([place]) Comment on above: Performed By: #### A DIFF, LIP, MDW, CMP, GFR, ANEU, CBC #### [place] [address] Hgb 13.5 G/dL Low 14.0-18.0 [facility] ([place]) Comment on above: Performed By: #### A DIFF, LIP, MDW, CMP, GFR, ANEU, CBC #### [address] [address] MCH (RBC) [Entitic mass] 33.0 pg High 27.0-31.2 [facility] ([place]) Comment on above: Performed By: #### A DIFF, LIP, MDW, CMP, GFR, ANEU, CBC #### [place] [address] MCHC 34.8 G/dL Normal 31.8-35.4 [facility] ([place]) Comment on above: Performed By: #### A DIFF, LIP, MDW, CMP, GFR, ANEU, CBC #### [address] [address] MCV (RBC) [Entitic vol] 95.0 fL High 80.0-94.0 [facility] ([place]) Comment on above: Performed By: #### A DIFF, LIP, MDW, CMP, GFR, ANEU, CBC #### [address] [address] Platelet 344 10 3/mcL Normal 130-400 [facility] ([place]) Comment on above: Performed By: #### A DIFF, LIP, MDW, CMP, GFR, ANEU, CBC #### [address] [address] Platelet mean volume (Bld) [Entitic vol] 7.1 fL Low 7.4-10.4 [facility] ([place]) Comment on above: Performed By: #### A DIFF, LIP, MDW, CMP, GFR, ANEU, CBC #### [address] [address] RBC 4.10 10 6/mcL Normal 4.04-6.13 [facility] ([place]) Comment on above: Performed By: #### A DIFF, LIP, MDW, CMP, GFR, ANEU, CBC #### [address] [address] WBC 10.6 10 3/mcL Normal 4.6-10.8 [facility] ([place]) Comment on above: Performed By: #### A DIFF, LIP, MDW, CMP, GFR, ANEU, CBC #### [address] [address] CMPon 10-22-2022 Albumin Level 2.9 G/dL Low 3.4-4.8 [facility] ([place]) Comment on above: Performed By: #### A DIFF, LIP, MDW, CMP, GFR, ANEU, CBC #### [address] [address] Albumin/Globulin [Mass ratio] 0.8 {ratio} Low 1.1-2.5 [facility] ([place]) Comment on above: Performed By: #### A DIFF, LIP, MDW, CMP, GFR, ANEU, CBC #### [address] [address] ALP [Catalytic activity/Vol] 98 U/L Normal 40-135 [facility] ([place]) Comment on above: Performed By: #### A DIFF, LIP, MDW, CMP, GFR, ANEU, CBC #### [address] [address] ALT [Catalytic activity/Vol] 46 U/L Normal 16-63 [facility] ([place]) Comment on above: Performed By: #### A DIFF, LIP, MDW, CMP, GFR, ANEU, CBC #### [address] [address] AST [Catalytic activity/Vol] 29 U/L Normal 10-40 [facility] ([place]) Comment on above: Performed By: #### A DIFF, LIP, MDW, CMP, GFR, ANEU, CBC #### [address] [address] Bili Total 0.3 mg/dL Normal 0.2-1.0 [facility] ([place]) Comment on above: Result Comment: Use of this assay is not recommended for patients undergoing treatment with eltrombopag due to the potential for falsely elevated results. Performed By: #### A DIFF, LIP, MDW, CMP, GFR, ANEU, CBC #### [address] [address] BUN/Creatinine Ratio 17 ratio Normal 7-27 [facility] ([place]) Comment on above: Performed By: #### A DIFF, LIP, MDW, CMP, GFR, ANEU, CBC #### [address] [address] Calcium [Mass/Vol] 9.2 mg/dL Normal 8.4-10.2 [facility] ([place]) Comment on above: Performed By: #### A DIFF, LIP, MDW, CMP, GFR, ANEU, CBC #### [address] [address] Chloride [Moles/Vol] 96 mmol/L Low 98-107 [facility] ([place]) Comment on above: Performed By: #### A DIFF, LIP, MDW, CMP, GFR, ANEU, CBC #### [address] [address] CO2 [Moles/Vol] 33 mmol/L High 23-31 [facility] ([place]) Comment on above: Performed By: #### A DIFF, LIP, MDW, CMP, GFR, ANEU, CBC #### [address] [address] Creatinine [Mass/Vol] 1.22 mg/dL Normal 0.70-1.30 [facility] ([place]) Comment on above: Performed By: #### A DIFF, LIP, MDW, CMP, GFR, ANEU, CBC #### [address] [address] Electrolyte Balance 5.0 mEq/L Normal 4.0-15.0 [facility] ([place]) Comment on above: Performed By: #### A DIFF, LIP, MDW, CMP, GFR, ANEU, CBC #### [address] [address] Globulin 3.5 G/dL Normal [facility] ([place]) Comment on above: Performed By: #### A DIFF, LIP, MDW, CMP, GFR, ANEU, CBC #### [address] [address] Glucose [Mass/Vol] 111 mg/dL High 83-110 [facility] ([place]) Comment on above: Performed By: #### A DIFF, LIP, MDW, CMP, GFR, ANEU, CBC #### [address] [address] Potassium [Moles/Vol] 4.3 mmol/L Normal 3.5-5.1 [facility] ([place]) Comment on above: Performed By: #### A DIFF, LIP, MDW, CMP, GFR, ANEU, CBC #### [address] [address] Sodium [Moles/Vol] 134 mmol/L Low 136-145 [facility] ([place]) Comment on above: Performed By: #### A DIFF, LIP, MDW, CMP, GFR, ANEU, CBC #### [address] [address] Total Protein 6.4 G/dL Normal 6.4-8.2 [facility] ([place]) Comment on above: Performed By: #### A DIFF, LIP, MDW, CMP, GFR, ANEU, CBC #### [address] [address] Urea nitrogen [Mass/Vol] 21 mg/dL High 7-18 [facility] ([place]) Comment on above: Performed By: #### A DIFF, LIP, MDW, CMP, GFR, ANEU, CBC #### [address] [address] LABORATORYOrdered By: SYSTEM SYSTEM on 10-22-2022 Albumin [...] 10-22-2022 Lipase Level 32 U/L Normal 16-77 [facility] ([place]) Comment on above: Performed By: #### A DIFF, LIP, MDW, CMP, GFR, ANEU, CBC #### [address] [place], [place] [address] Absolute lymphocyte countOrd ered By: Dr. Jauregui on 10-21-2022 Lymphocytes Auto (Unsp spec) [#/Vol] 0.85 10*3/uL 0.83-4.51 [facility] Basophil percentageOrdered B y: Dr. Jauregui on 10-21-2022 Basophil percentage 25-50 SEEN /hpf 0-5 [facility] Basophils/100 WBC (Bld) 0.6 % 0-1 [facility] Bilirubin [Mass/Vol] 0.30 mg/dL 0.20-1.00 [facility] Comment on above: For patients on eltr ombopag therapy, use of Dimension [place] TBIL is not recommended. Chloride [Moles/Vol] 99 mmol/L 98-107 [facility] Eosinophils/100 WBC (Bld) 0.4 % 0-5 [facility] Glucose [Mass/Vol] 104 mg/dL 74-106 [facility] Comment on above: Fasting Glucose resu lt from 100 to 125 mg/dL suggests IMPAIRED HOMEOSTASIS per A.D.A. criteria. Neutrophils (Bld) [#/Vol] 8.8 10*3/uL 2.0-7.7 [facility] Neutrophils/100 WBC (Bld) 84.2 % 47-70 [facility] Potassium [Moles/Vol] 3.6 mmol/L 3.5-5.1 [facility] Protein [Mass/Vol] 7.2 g/dL 6.4-8.2 [facility] Sodium [Moles/Vol] 135 mmol/L 136-145 [facility] WBC (Bld) [#/Vol] 10.4 10*3/uL 4.4-11.0 [facility] Bilirubin Test strip Ql (U)O rdered By: Dr. Jauregui on 10-21-2022 Bilirubin Ql (U) Negative Negative [facility] Blood erythrocytes count (nu mber/volume)Ordered By: Dr. Jauregui on 10-21-2022 RBC (Bld) [#/Vol] 4.51 10*6/uL 4.6-6.2 [facility] Blood hemoglobin measurement (mass/volume)Ordered By: Dr. Jauregui on 10-21-2022 Hemoglobin (Bld) [Mass/Vol] 14.4 g/dL 13.0-16.5 [facility] Blood lymphocytes/100 leukoc ytesOrdered By: Dr. Jauregui on 10-21-2022 Lymphocytes/100 WBC (Bld) 8.2 % 19-41 [facility] Blood monocytes/100 leukocyt esOrdered By: Dr. Jauregui on 10-21-2022 Monocytes/100 WBC (Bld) 5.4 % 0-10 [facility] Blood platelet mean volumeOr dered [...] Center Lipase [Catalytic activity/Vol] 42 U/L 13-75 [facility] [...] 10-21-2022 MCHC (RBC) [Mass/Vol] 33.4 g/dL 32-36 [facility] Mucus LM Ql (Urine sed)Order ed By: Dr. Jauregui on 10-21-2022 Mucus Ql (Urine sed) 0 SEEN /hpf [facility] Nitrite Test strip Ql (U)Ord ered By: [...] on 10-21-2022 Albumin [Mass/Vol] 3.0 g/dL 3.2-5.0 [facility] Serum or plasma albumin/glob ulin mass ratioOrdered By: Dr. Jauregui on 10-21-2022 Albumin/Globulin [Mass ratio] 0.7 {ratio} 0.9-2.4 [facility] Serum or plasma calcium luis urement (mass/volume)Ordered By: Dr. Jauregui on 10-21-2022 Calcium [Mass/Vol] 9.8 mg/dL 8.5-10.1 [facility] Serum or plasma creatinine m easurement (mass/volume)Ordered By: Dr. Jauregui on 10-21-2022 Creatinine [Mass/Vol] 1.04 mg/dL 0.70-1.30 [facility] Comment on above: The validity of the [...] 10-21-2022 Urobilinogen Ql (U) Normal mg/dl Normal [facility] No Panel InformationOrdered By: Андрей Cooley on 08-11-2022 Miscellaneous Test See comment [facility] Comment on above: TEST RESULT LIMITSCa rbamazepine(Tegretol), S 7.1 ug/mL 4.0-12.0 In conjunction with other antiepileptic drugs Therapeutic 4.0 - 8.0 Toxicity 9.0 - 12.0 Carbamazepine alone Therapeutic 8.0 - 12.0 Detection Limit = 2.0 <2.0 indicated None Detected Verified by repeat analysis TESTING PERFORMED AT [employer]. ORIGINAL REPORT ON FILE IN LAB CONTAINS ADDITIONAL TEST SITE INFORMATION. No Panel InformationOrdered By: Андрей Cooley on 07-12-2022 Miscellaneous Test See comment [facility] Comment on above: TEST RESULT LIMITSCarbamazepine(Tegretol),SCarbamazepine(Tegretol), S 6.3 ug/mL 4.0-12.0 In conjunction with other antiepileptic drugs Therapeutic 4.0 - 8.0 Toxicity 9.0 - 12.0 Carbamazepine alone Therapeutic 8.0 - 12.0 Detection Limit = 2.0 <2.0 indicated None Detected ____ TESTING PERFORMED AT [employer]. ORIGINAL REPORT ON FILE IN LAB CONTAINS ADDITIONAL TEST SITE INFORMATION. Basophil percentageOrdered B y: Андрей Cooley on 06-14-2022 Bilirubin [Mass/Vol] 0.20 mg/dL 0.20-1.00 [facility] Comment on above: For patients on eltr ombopag therapy, use of Dimension [place] TBIL is not recommended. Chloride [Moles/Vol] 104 mmol/L 98-107 [facility] Cholesterol [Mass/Vol] 139 mg/dL <200 [facility] Comment on above: <200 mg/dL Desirable 200-240 mg/dL Borderline >240 mg/dL High Risk Glucose [Mass/Vol] 76 mg/dL 74-106 [facility] Potassium [Moles/Vol] 3.9 mmol/L 3.5-5.1 [facility] Protein [Mass/Vol] 6.4 g/dL 6.4-8.2 [facility] Sodium [Moles/Vol] 139 mmol/L 136-145 [facility] Triglyceride [Mass/Vol] 111 mg/dL <199 [facility] Comment on above: The drugs N-Acetylcy steine and Metamizole may falsely depress this assay.Serum Triglycerides Reference Interval Normal <150 mg/dL Borderline high 150 - 199 mg/dL High 200 - 499 mg/dL Very High > or = 500 mg/dL WBC (Bld) [#/Vol] 5.5 10*3/uL 4.4-11.0 [facility] Blood erythrocytes count (nu mber/volume)Ordered By: Андрей Cooley on 06-14-2022 RBC (Bld) [#/Vol] 4.57 10*6/uL 4.6-6.2 [facility] Blood hemoglobin measurement (mass/volume)Ordered By: Андрей Cooley [...] 06-14-2022 MCHC (RBC) [Mass/Vol] 32.7 g/dL 32-36 [facility] No Panel InformationOrdered By: Андрей Cooley on 06-14-2022 Estimated GFR (MDRD) Amer 108 mL/min >60 [facility] Comment on above: GFR Calc Estimated GFR (MDRD) Non-Af Amer 89 mL/min >60 [facility] Comment on above: Non- GFR Calc Vitamin D 25-Hydroxy 40.8 ng/mL [facility] Comment on above: Vitamin D [...] on 06-14-2022 Albumin [Mass/Vol] 3.4 g/dL 3.2-5.0 [facility] Serum or plasma albumin/glob ulin mass ratioOrdered By: Андрей Cooley on 06-14-2022 Albumin/Globulin [Mass ratio] 1.1 {ratio} 0.9-2.4 [facility] Serum or plasma calcium luis urement (mass/volume)Ordered By: Андрей Cooley on 06-14-2022 Calcium [Mass/Vol] 9.1 mg/dL 8.5-10.1 [facility] Serum or plasma cholesterol in [...] on 06-14-2022 Creatinine [Mass/Vol] 0.89 mg/dL 0.70-1.30 [facility] Comment on above: The validity of the [...] Cooley on 05-13-2022 Miscellaneous Test See comment [facility] Comment on above: TEST RESULT LIMITSCa rbamazepine(Tegretol), S 6.2 ug/mL 4.0-12.0 In conjunction with other antiepileptic drugs Therapeutic 4.0 - 8.0 Toxicity 9.0 - 12.0 Carbamazepine alone Therapeutic 8.0 - 12.0 Detection Limit = 2.0 <2.0 indicated None Detected ____ TESTING PERFORMED AT [employer]. ORIGINAL REPORT ON FILE IN LAB CONTAINS ADDITIONAL TEST SITE INFORMATION. Absolute lymphocyte counton 03-15-2022 Lymphocytes Auto (Unsp spec) [#/Vol] 1.09 10*3/uL 0.83-4.51 [facility] Work Phone: Basophil percentageon 2021 Basophils/100 WBC (Bld) 0.7 % 0-1 [facility] Work Phone: Bilirubin [Mass/Vol] 0.30 mg/dL 0.20-1.00 [facility] Work Phone: Comment on above: For patients on eltr ombopag therapy, use of Dimension [place] TBIL is not recommended. Chloride [Moles/Vol] 96 mmol/L 98-107 [facility] Work Phone: Cholesterol [Mass/Vol] 137 mg/dL <200 [facility] Work Phone: Comment on above: <200 mg/dL Desirable 200-240 mg/dL Borderline >240 mg/dL High Risk Eosinophils/100 WBC (Bld) 1.0 % 0-5 [facility] Work Phone: Glucose [Mass/Vol] 84 mg/dL 74-106 [facility] Work Phone: Neutrophils (Bld) [#/Vol] 5.3 10*3/uL 2.0-7.7 [facility] Work Phone: Neutrophils/100 WBC (Bld) 74.4 % 47-70 [facility] Work Phone: [phone] Potassium [Moles/Vol] 3.5 mmol/L 3.5-5.1 [facility] Work Phone: [phone] Comment on above: Slight Hemolysis, Re sult may be falsely increased. Protein [Mass/Vol] 7.2 g/dL 6.4-8.2 [facility] Work Phone: [phone] Sodium [Moles/Vol] 133 mmol/L 136-145 [facility] Work Phone: [phone] Triglyceride [Mass/Vol] 121 mg/dL <199 [facility] Work Phone: [phone] Comment on above: The drugs N-Acetylcy steine and Metamizole may falsely depress this assay.Serum Triglycerides Reference Interval Normal <150 mg/dL Borderline high 150 - 199 mg/dL High 200 - 499 mg/dL Very High > or = 500 mg/dL WBC (Bld) [#/Vol] 7.2 10*3/uL 4.4-11.0 [facility] Work Phone: Blood erythrocytes count (nu mber/volume)on 03-15-2022 RBC (Bld) [#/Vol] 5.31 10*6/uL 4.6-6.2 [facility] Work Phone: [phone] Blood hemoglobin measurement (mass/volume)on 03-15-2022 Hemoglobin (Bld) [Mass/Vol] 17.0 g/dL 13.0-16.5 [facility] Work Phone: Blood lymphocytes/100 leukoc yteson 03-15-2022 Lymphocytes/100 WBC (Bld) 15.2 % 19-41 [facility] Work Phone: Blood monocytes/100 leukocyt eson 03-15-2022 Monocytes/100 WBC (Bld) 7.9 % 0-10 [facility] Work Phone: Blood platelet mean volumeon 03-15-2022 [...] 16-61 [facility] Work Phone: [phone] CO2 [Moles/Vol] 28.0 mmol/L 21.0-32.0 [facility] Work Phone: Globulin (S) [Mass/Vol] 4.1 g/dL 2.2-4.2 [facility] Work Phone: Urea nitrogen/Creatinine [Mass ratio] 21.2 mg/mg 10-20 [facility] Work Phone: Laboratory - Coagulationon 0 03-15-2022 PT Coag (PPP) [Time] 11.8 s 11.7-14.9 [facility] Work [facility]: Laboratory - Hematology and [...] 0-5 [facility] Work Phone: [phone] MCHC Auto (RBC) [Mass/Vol]on 03-15-2022 MCHC (RBC) [Mass/Vol] 34.3 g/dL 32-36 [facility] Work Phone: No Panel Informationon 03-15 Carbamazepine (Tegretol) Level 7.3 ug/mL 4.0-12.0 [facility] Work Phone: [phone] Estimated GFR (MDRD) Amer 101 mL/min >60 [facility] Work Phone: [phone] Comment on above: GFR Calc Estimated GFR (MDRD) Non-Af Amer 84 mL/min >60 [facility] Work Phone: [phone] Comment on above: Non- GFR Calc Platelets bldon 03-15-2022 Platelets (Bld) [#/Vol] 327 10*3/uL 150-450 [facility] Work Phone: [phone] Serum or plasma albumin luis urement (mass/volume)on 03-15-2022 Albumin [Mass/Vol] 3.1 g/dL 3.2-5.0 [facility] Work Phone: [phone] Serum or plasma albumin/glob ulin mass ratioon 03-15-2022 Albumin/Globulin [Mass ratio] 0.8 {ratio} 0.9-2.4 [facility] Work Phone: [phone] Serum or plasma calcium luis urement (mass/volume)on 03-15-2022 Calcium [Mass/Vol] 9.1 mg/dL 8.5-10.1 [facility] Work Phone: Serum or plasma cholesterol [...] (mass/volume)on 03-15-2022 Creatinine [Mass/Vol] 0.94 mg/dL 0.70-1.30 [facility] Work Phone: Comment on above: The validity [...] [facility] Work Phone: Bilirubin [Mass/Vol] 0.20 mg/dL 0.20-1.00 [facility] Work Phone: Comment on above: For patients on eltr ombopag therapy, use of Dimension [place] TBIL is not recommended. Chloride [Moles/Vol] 101 mmol/L 98-107 [facility] Work Phone: Eosinophils/100 WBC (Bld) 1.0 % 0-5 [facility] Work Phone: Glucose [Mass/Vol] 98 mg/dL 74-106 [facility] Work Phone: Neutrophils (Bld) [#/Vol] 4.6 10*3/uL 2.0-7.7 [facility] Work Phone: Neutrophils/100 WBC (Bld) 67.4 % 47-70 [facility] Work Phone: Potassium [Moles/Vol] 3.8 mmol/L 3.5-5.1 [facility] Work Phone: Protein [Mass/Vol] 7.5 g/dL 6.4-8.2 [facility] Work Phone: Sodium [Moles/Vol] 138 mmol/L 136-145 [facility] Work Phone: WBC (Bld) [#/Vol] 6.8 10*3/uL 4.4-11.0 [facility] Work Phone: Blood erythrocytes count (nu mber/volume)on 03-02-2022 RBC (Bld) [#/Vol] 5.14 10*6/uL 4.6-6.2 [facility] Work Phone: Blood hemoglobin measurement [...] 2.2-4.2 [facility] Work Phone: Lipase [Catalytic activity/Vol] 95 U/L 73-393 [facility] Work Phone: Urea nitrogen/Creatinine [Mass ratio] 14.8 mg/mg 10-20 [facility] Work Phone: Laboratory - Hematology and Cell countson 03-02-2022 Erythrocyte distribution width (RBC) [Entitic vol] 47.0 fL 35.1-43.9 [facility] Work Phone: Erythrocyte distribution width (RBC) [Ratio] 13.9 % 11.6-14.6 [facility] Work Phone: [phone] Immature granulocytes/100 WBC (Bld) 0.600 % 0.0-0.9 [facility] Work Phone: [phone] Comment on above: IG% - Immature Granu locytes (promyelocytes, myelocytes and metamyelocytes) > 1% indicates that a LEFT SHIFT is Present. MCH (RBC) [Entitic mass] 31.7 pg 27.0-32.0 [facility] Work Phone: [phone] Nucleated RBC/100 WBC (Bld) [Ratio] 0 % 0-5 [facility] Work Phone: [phone] MCHC Auto (RBC) [Mass/Vol]on 03-02-2022 MCHC (RBC) [Mass/Vol] 33.4 g/dL 32-36 [facility] Work Phone: No Panel Informationon 03-02 Estimated Creatinine Clearance Calc 59.81 ml/min [facility] Work Phone: [phone] Estimated GFR (MDRD) Amer 86 mL/min >60 [facility] Work Phone: [phone] Comment on above: GFR Calc Estimated GFR (MDRD) Non-Af Amer 71 mL/min >60 [facility] Work Phone: [phone] Comment on above: Non- GFR Calc Troponin I High Sensitivity 18 pg/mL 3.0-78.0 [facility] Work Phone: Comment on above: Please Note: [place] t Units and Gender Specific Reference Ranges. For more information see Policy Stat Procedure [place] High Sensitivity Troponin (TNIH) and attachments. Platelets bldon 03-02-2022 Platelets (Bld) [#/Vol] 296 10*3/uL 150-450 [facility] Work Phone: [phone] Serum or plasma albumin luis urement (mass/volume)on 03-02-2022 Albumin [Mass/Vol] 3.8 g/dL 3.2-5.0 [facility] Work Phone: [phone] Serum or plasma albumin/glob ulin mass ratioon 03-02-2022 Albumin/Globulin [Mass ratio] 1.0 {ratio} 0.9-2.4 [facility] Work Phone: Serum or plasma calcium luis urement (mass/volume)on 03-02-2022 Calcium [Mass/Vol] 9.7 mg/dL 8.5-10.1 [facility] Work Phone: Serum or plasma creatinine m easurement (mass/volume)on 03-02-2022 Creatinine [Mass/Vol] 1.08 mg/dL 0.70-1.30 [facility] Work Phone: Comment on above: The validity [...] percentageon 2021 Chloride [Moles/Vol] 99 mmol/L 98-107 [facility] Work Phone: Glucose [Mass/Vol] 110 mg/dL 74-106 [facility] Work Phone: Comment on above: Fasting Glucose resu lt from 100 to 125 mg/dL suggests IMPAIRED HOMEOSTASIS per A.D.A. criteria. Potassium [Moles/Vol] 4.0 mmol/L 3.5-5.1 [facility] Work Phone: Sodium [Moles/Vol] 135 mmol/L 136-145 [facility] Work Phone: WBC (Bld) [#/Vol] 6.0 10*3/uL 4.4-11.0 [facility] Work Phone: Basophil percentage 0 SEEN /hpf 0-5 [facility] Work Phone: Bilirubin Test strip Ql (U)o n 01-28-2022 Bilirubin Ql (U) Negative Negative [facility] Work Phone: [phone] Blood erythrocytes count (nu mber/volume)on 01-28-2022 RBC (Bld) [#/Vol] 5.14 10*6/uL 4.6-6.2 [facility] Work Phone: Blood hemoglobin measurement (mass/volume)on 01-28-2022 [...] Negative [facility] Work Phone: [phone] Laboratory - Chemistry and C hemistry - challengeon 01-28-2022 CO2 [Moles/Vol] 31.0 mmol/L 21.0-32.0 [facility] Work Phone: Urea nitrogen/Creatinine [Mass ratio] 11.8 mg/mg 10-20 [facility] Work Phone: [phone] Laboratory - Hematology and Cell countson 01-28-2022 Erythrocyte distribution width (RBC) [Entitic vol] 54.1 fL 35.1-43.9 [facility] Work Phone: [phone] Erythrocyte distribution width (RBC) [Ratio] 16.9 % 11.6-14.6 [facility] Work Phone: [phone] MCH (RBC) [Entitic mass] 31.5 pg 27.0-32.0 [facility] Work Phone: [phone] MCHC Auto (RBC) [Mass/Vol]on 01-28-2022 MCHC (RBC) [Mass/Vol] 33.0 g/dL 32-36 [facility] Work Phone: [phone] Mucus LM Ql (Urine sed)on Mucus Ql (Urine sed) 0 SEEN /hpf [facility] Work Phone: [phone] Nitrite Test strip Ql (U)on 01-28-2022 Nitrite Ql (U) Negative Negative [facility] Work Phone: [phone] No Panel Informationon 01-28 Estimated Creatinine Clearance Calc 63.33 ml/min [facility] Work Phone: [phone] Estimated GFR (MDRD) Amer 92 mL/min >60 [facility] Work Phone: [phone] Comment on above: GFR Calc Estimated GFR (MDRD) Non-Af Amer 76 mL/min >60 [facility] Work Phone: [phone] Comment on above: Non- GFR Calc Platelets bldon 01-28-2022 Platelets (Bld) [#/Vol] 250 10*3/uL 150-450 [facility] Work Phone: [phone] Protein Test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 [facility] Work Phone: Comment on above: For patients on eltr ombopag therapy, use of Dimension [place] TBIL is not recommended. Chloride [Moles/Vol] 105 mmol/L 98-107 [facility] Work Phone: Eosinophils/100 WBC (Bld) 0.5 % 0-5 [facility] Work Phone: Glucose [Mass/Vol] 99 mg/dL 74-106 [facility] Work Phone: Neutrophils (Bld) [#/Vol] 4.3 10*3/uL 2.0-7.7 [facility] Work Phone: Neutrophils/100 WBC (Bld) 70.4 % 47-70 [facility] Work Phone: Potassium [Moles/Vol] 3.7 mmol/L 3.5-5.1 [facility] Work Phone: Protein [Mass/Vol] 7.5 g/dL 6.4-8.2 [facility] Work Phone: Sodium [Moles/Vol] 138 mmol/L 136-145 [facility] Work Phone: WBC (Bld) [#/Vol] 6.1 10*3/uL 4.4-11.0 [facility] Work Phone: Bilirubin Test strip Ql (U)o n 10-08-2021 Bilirubin Ql (U) Negative Negative [facility] Work Phone: Blood erythrocytes count (nu mber/volume)on 10-08-2021 RBC (Bld) [#/Vol] 3.87 10*6/uL 4.6-6.2 [facility] Work Phone: Blood hemoglobin measurement (mass/volume)on 10-08-2021 [...] 16-61 [facility] Work Phone: [phone] CO2 [Moles/Vol] 30.0 mmol/L 21.0-32.0 [facility] Work Phone: Globulin (S) [Mass/Vol] 3.7 g/dL 2.2-4.2 [facility] Work Phone: [phone] Lipase [Catalytic activity/Vol] 93 U/L 73-393 [facility] Work Phone: [phone] Urea nitrogen/Creatinine [Mass ratio] 20.2 mg/mg 10-20 [facility] Work Phone: Laboratory - Coagulationon 0 10-08-2021 PT Coag (PPP) [Time] 25.7 s 11.7-14.9 [facility] Work Phone: [phone] Laboratory - Hematology and Cell countson 10-08-2021 Erythrocyte distribution width (RBC) [Entitic vol] 50.4 fL 35.1-43.9 [facility] Work Phone: [phone] Erythrocyte distribution width (RBC) [Ratio] 18.6 % 11.6-14.6 [facility] Work Phone: [phone] Immature granulocytes/100 WBC (Bld) 0.300 % 0.0-0.9 [facility] Work Phone: Comment on above: IG% - Immature Granu locytes (promyelocytes, myelocytes and metamyelocytes) > 1% indicates that a LEFT SHIFT is Present. MCH (RBC) [Entitic mass] 21.4 pg 27.0-32.0 [facility] Work Phone: [phone] Nucleated RBC/100 WBC (Bld) [Ratio] 0 % 0-5 [facility] Work Phone: [phone] MCHC Auto (RBC) [Mass/Vol]on 10-08-2021 MCHC (RBC) [Mass/Vol] 28.7 g/dL 32-36 [facility] Work Phone: [phone] Mucus LM Ql (Urine sed)on Mucus Ql (Urine sed) 0 SEEN /hpf [facility] Work Phone: [phone] Nitrite Test strip Ql (U)on 10-08-2021 Nitrite Ql (U) Positive Negative [facility] Work Phone: [phone] Panel Informationon 10-08 Estimated Creatinine Clearance Calc 68.72 ml/min [facility] Work Phone: [phone] Estimated GFR (MDRD) Amer 101 mL/min >60 [facility] Work Phone: [phone] Comment on above: GFR Calc Estimated GFR (MDRD) Non-Af Amer 84 mL/min >60 [facility] Work Phone: [phone] Comment on above: Non- GFR Calc Platelets bldon 10-08-2021 Platelets (Bld) [#/Vol] 349 10*3/uL 150-450 [facility] Work Phone: [phone] Protein Test strip Ql (U)on 10-08-2021 Protein Ql (U) 100 mg/dl Negative [facility] Work Phone: [phone] Serum or plasma albumin luis urement (mass/volume)on 10-08-2021 Albumin [Mass/Vol] 3.8 g/dL 3.2-5.0 [facility] Work Phone: [phone] Serum or plasma albumin/glob ulin mass ratioon 10-08-2021 Albumin/Globulin [Mass ratio] 1.0 {ratio} 0.9-2.4 [facility] Work Phone: Serum or plasma calcium luis urement (mass/volume)on 10-08-2021 Calcium [Mass/Vol] 9.1 mg/dL 8.5-10.1 [facility] Work Phone: Serum or plasma creatinine m easurement (mass/volume)on 10-08-2021 Creatinine [Mass/Vol] 0.94 mg/dL 0.70-1.30 [facility] Work Phone: Comment on above: The validity [...] [facility] Work [facility]: Urine blood detectionon 09-18 RBC Ql (U) 10 /ul Negative [facility] Work Phone: RBC Ql (U) 0 SEEN /hpf 0-5 [facility] Work Phone: [phone] Urine clarityon 10-08-2021 Clarity (U) Sl. Cloudy Clear [facility] Work Phone: [phone] Urine color determinationon 10-08-2021 Color (U) Yellow Yellow [facility] Work Phone: [phone] Urine glucose detectionon Glucose Ql (U) Normal mg/dl Normal [facility] Work Phone: [phone] Urine leukocyte esterase det ection by dipstickon [...] 10-08-2021 Urobilinogen Ql (U) Normal mg/dl Normal [facility] Work Phone: Absolute lymphocyte counton 09-22-2021 Lymphocytes Auto (Unsp spec) [#/Vol] 1.51 10*3/uL 0.83-4.51 [facility] Work Phone: Basophil percentageon 2021 Basophils/100 WBC (Bld) 2.1 % 0-1 [facility] Work Phone: Eosinophils/100 WBC (Bld) 5.1 % 0-5 [facility] Work Phone: Neutrophils (Bld) [#/Vol] 3.7 10*3/uL 2.0-7.7 [facility] Work Phone: Neutrophils/100 WBC (Bld) 60.6 % 47-70 [facility] Work Phone: WBC (Bld) [#/Vol] 6.1 10*3/uL 4.4-11.0 [facility] Work Phone: Blood erythrocytes count (nu mber/volume)on 09-22-2021 RBC (Bld) [#/Vol] 4.09 10*6/uL 4.6-6.2 [facility] Work Phone: Blood hemoglobin measurement (mass/volume)on 09-22-2021 Hemoglobin (Bld) [Mass/Vol] 9.1 g/dL 13.0-16.5 [facility] Work Phone: [phone] Blood lymphocytes/100 leukoc yteson 09-22-2021 Lymphocytes/100 WBC (Bld) 24.8 % 19-41 [facility] Work Phone: [phone] Blood monocytes/100 leukocyt eson 09-22-2021 Monocytes/100 WBC (Bld) 6.9 % 0-10 [facility] Work Phone: [phone] Blood platelet mean volumeon 09-22-2021 Platelet mean volume (Bld) [Entitic vol] 9.9 fL 6.2-12.0 [facility] Work Phone: [phone] Determination of erythrocyte mean corpuscular volume (MCV)on 09-22-2021 MCV (RBC) [Entitic vol] 77.5 fL 80-94 [facility] Work Phone: [phone] Hematocrit Auto (Bld) [Volum e fraction]on 09-22-2021 Hematocrit (Bld) [Volume fraction] 31.7 % 40-54 [facility] Work Phone: [phone] Laboratory - Hematology and Cell countson 09-22-2021 Erythrocyte distribution width (RBC) [Entitic vol] 56.2 fL 35.1-43.9 [facility] Work Phone: [phone] Erythrocyte distribution width (RBC) [Ratio] 19.9 % 11.6-14.6 [facility] Work Phone: [phone] Immature granulocytes/100 WBC (Bld) 0.500 % 0.0-0.9 [facility] Work Phone: [phone] Comment on above: IG% - Immature Granu locytes (promyelocytes, myelocytes and metamyelocytes) > 1% indicates that a LEFT SHIFT is Present. MCH (RBC) [Entitic mass] 22.2 pg 27.0-32.0 [facility] Work Phone: Nucleated RBC/100 WBC (Bld) [Ratio] 0 % 0-5 [facility] Work Phone: MCHC Auto (RBC) [Mass/Vol]on 09-22-2021 MCHC (RBC) [Mass/Vol] 28.7 g/dL 32-36 [facility] Work Phone: Platelets bldon 09-22-2021 Platelets (Bld) [#/Vol] 351 10*3/uL 150-450 [facility] Work Phone: CNPNon 09-21-2021 LAMINN Telephone (AGGENS1) PEDRO PABLO SIERRA ([id number]) 1950 M T Date Time Provider Department 09/21/21 YE COELLO1 During your visit today, we recorded the following information about you: Veronica Reyes LPN 09/21/2021 8:44 AM Signed SEYMOUR BOUDREAUX W/DR. ORTEGA'S OFFICE TRANFERRED PATIENT TO [...] Date Reviewed: 09/15/2021 Reviewed by: Anjel Braga APRN.FIELD DIRECTOR - Fully Assessed Reason for Visit: Appointment [...] [J43.9] - COMPOUNDED PRESCRIPTION Aerosol supplies Dx:J44.1 NPI#[id number] - COMPOUNDED PRESCRIPTION NEBULIZER FOR HOME USE. [...] 2021 Basophil percentage 0-5 SEEN /hpf 0-5 [facility] Work Phone: Basophils/100 WBC (Bld) 1.6 % 0-1 [facility] Work Phone: Bilirubin [Mass/Vol] 0.30 mg/dL 0.20-1.00 [facility] Work Phone: Comment on above: For patients on eltr ombopag therapy, use of Dimension [place] TBIL is not recommended. Chloride [Moles/Vol] 104 mmol/L 98-107 [facility] Work Phone: Eosinophils/100 WBC (Bld) 1.1 % 0-5 [facility] Work Phone: Glucose [Mass/Vol] 100 mg/dL 74-106 [facility] Work Phone: Comment on above: Fasting Glucose resu lt from 100 to 125 mg/dL suggests IMPAIRED HOMEOSTASIS per A.D.A. criteria. Neutrophils (Bld) [#/Vol] 5.2 10*3/uL 2.0-7.7 [facility] Work Phone: Neutrophils/100 WBC (Bld) 73.0 % 47-70 [facility] Work Phone: Potassium [Moles/Vol] 4.2 mmol/L 3.5-5.1 [facility] Work Phone: Protein [Mass/Vol] 7.3 g/dL 6.4-8.2 [facility] Work Phone: [phone] Sodium [Moles/Vol] 136 mmol/L 136-145 [facility] Work Phone: [phone] WBC (Bld) [#/Vol] 7.1 10*3/uL 4.4-11.0 [facility] Work Phone: [phone] Bilirubin Test strip Ql (U)o n 09-17-2021 Bilirubin Ql (U) Negative Negative [facility] Work Phone: [phone] Blood erythrocytes count (nu mber/volume)on 09-17-2021 RBC (Bld) [#/Vol] 3.50 10*6/uL 4.6-6.2 [facility] Work Phone: [phone] Blood hemoglobin measurement (mass/volume)on 09-17-2021 Hemoglobin (Bld) [Mass/Vol] 7.9 g/dL 13.0-16.5 [facility] Work Phone: [phone] Blood lymphocytes/100 leukoc yteson 09-17-2021 Lymphocytes/100 WBC (Bld) 16.9 % 19-41 [facility] Work Phone: [phone] Blood monocytes/100 leukocyt eson 09-17-2021 Monocytes/100 WBC (Bld) 7.1 % 0-10 [facility] Work Phone: [phone] Blood platelet mean volumeon 09-17-2021 Platelet mean volume (Bld) [Entitic vol] 9.5 fL 6.2-12.0 [facility] Work Phone: [phone] Determination of erythrocyte mean corpuscular volume (MCV)on 09-17-2021 MCV (RBC) [Entitic vol] 75.1 fL 80-94 [facility] Work Phone: [phone] Hematocrit Auto (Bld) [Volum e fraction]on 09-17-2021 Hematocrit (Bld) [Volume fraction] 26.3 % 40-54 [facility] Work Phone: [phone] INR in Blood by Coagulation assayon 09-17-2021 INR Coag (Bld) [Relative time] 1.3 {INR} [facility] Work Phone: Ketones Test strip Ql (U)on 09-17-2021 Ketones Ql (U) Negative Negative [facility] Work Phone: [phone] Laboratory - Chemistry and C hemistry - challengeon 09-17-2021 ALP [Catalytic activity/Vol] 79 U/L 45-117 [facility] Work Phone: [phone] ALT [Catalytic activity/Vol] 36 U/L 16-61 [facility] Work Phone: [phone] CO2 [Moles/Vol] 25.0 mmol/L 21.0-32.0 [facility] Work Phone: [phone] Globulin (S) [Mass/Vol] 3.5 g/dL 2.2-4.2 [facility] Work Phone: [phone] Lipase [Catalytic activity/Vol] 102 U/L 73-393 [facility] Work Phone: [phone] Urea nitrogen/Creatinine [Mass ratio] 12.5 mg/mg 10-20 [facility] Work Phone: [phone] Laboratory - Coagulationon 0 09-17-2021 PT Coag (PPP) [Time] 15.4 s 11.7-14.9 [facility] Work Phone: Laboratory - Hematology and Cell countson 09-17-2021 Erythrocyte distribution width (RBC) [Entitic vol] 53.1 fL 35.1-43.9 [facility] Work Phone: [phone] Erythrocyte distribution width (RBC) [Ratio] 19.6 % 11.6-14.6 [facility] Work Phone: [phone] Immature granulocytes/100 WBC (Bld) 0.300 % 0.0-0.9 [facility] Work Phone: [phone] Comment on above: IG% - Immature Granu locytes (promyelocytes, myelocytes and metamyelocytes) > 1% indicates that a LEFT SHIFT is Present. MCH (RBC) [Entitic mass] 22.6 pg 27.0-32.0 [facility] Work Phone: Nucleated RBC/100 WBC (Bld) [Ratio] 0 % 0-5 [facility] Work Phone: [phone] MCHC Auto (RBC) [Mass/Vol]on 09-17-2021 MCHC (RBC) [Mass/Vol] 30.0 g/dL 32-36 [facility] Work Phone: Mucus LM Ql (Urine sed)on Mucus Ql (Urine sed) 0 SEEN /hpf [facility] Work Phone: [phone] Nitrite Test strip Ql (U)on 09-17-2021 Nitrite Ql (U) Positive Negative [facility] Work Phone: [phone] Panel Informationon 09-17 Estimated Creatinine Clearance Calc 57.68 ml/min [facility] Work Phone: [phone] Estimated GFR (MDRD) Amer 83 mL/min >60 [facility] Work Phone: [phone] Comment on above: GFR Calc Estimated GFR (MDRD) Non-Af Amer 68 mL/min >60 [facility] Work Phone: [phone] Comment on above: Non- GFR Calc Platelets bldon 09-17-2021 Platelets (Bld) [#/Vol] 342 10*3/uL 150-450 [facility] Work Phone: Protein Test strip Ql (U)on 09-17-2021 Protein Ql (U) 15 mg/dl Negative [facility] Work Phone: [phone] Serum or plasma albumin luis urement (mass/volume)on 09-17-2021 Albumin [Mass/Vol] 3.8 g/dL 3.2-5.0 [facility] Work Phone: [phone] Serum or plasma albumin/glob ulin mass ratioon 09-17-2021 Albumin/Globulin [Mass ratio] 1.1 {ratio} 0.9-2.4 [facility] Work Phone: [phone] Serum or plasma calcium luis urement (mass/volume)on 04-01-2022 Calcium [Mass/Vol] 8.7 mg/dL 8.5-10.1 [facility] Work Phone: Serum or plasma creatinine m easurement (mass/volume)on 09-17-2021 Creatinine [Mass/Vol] 1.12 mg/dL 0.70-1.30 [facility] Work Phone: Comment on above: The validity [...] [facility] Work Phone: Urine blood detectionon 04-0 RBC Ql (U) Negative Negative [facility] Work Phone: RBC Ql (U) 0 SEEN /hpf 0-5 [facility] Work Phone: Urine clarityon 09-17-2021 Clarity (U) Clear Clear [facility] Work Phone: Urine color determinationon 09-17-2021 Color (U) Yellow Yellow [facility] Work Phone: [phone] Urine glucose detectionon Glucose Ql (U) Normal mg/dl Normal [facility] Work Phone: [phone] Urine leukocyte esterase det ection by dipstickon 09-17-2021 Leukocyte esterase Test strip Ql (U) 25 /ul Negative [facility] Work Phone: [phone] Urine pHon 09-17-2021 pH (U) 6.0 [pH] [...] 09-17-2021 Urobilinogen Ql (U) Normal mg/dl Normal [facility] Work Phone: PT panel Coag (PPP)on 2021 INR Coag (Bld) [Relative time] 2.1 (EXT) 2.0 - 3.0 [facility] UA DIP, URINE (POC)on 2021 BILIRUBIN UA (POCT) Negative Negative [facility] CLARITY UA (POCT) Clear [facility] COLOR UA (POCT) Yellow [facility] GLUCOSE UA (POCT) Negative Negative mg/dL [facility] HEMOGLOBIN/BLOOD UA (POCT) Trace-lysed Abnormal Negative [facility] KETONE UA (POCT) Negative Negative mg/dL [facility] LEUKOCYTES UA (POCT) Small Abnormal Negative [facility] NITRITE UA (POCT) Positive Abnormal Negative [facility] PH UA (POCT) 5.5 4.5 - 8.0 [facility] Protein Ql (U) 100 mg/dL Abnormal Negative mg/dL [facility] SPECIFIC GRAVITY UA (POCT) 1.020 1.005 - 1.030 [facility] UROBILINOGEN UA (POCT) 0.2 E.U./dL Malaika l E.U./dL [facility] Glucose Glucometer (dC) [M ass/Vol]on 08-21-2021 Glucose [Mass/Vol] 102 mg/dL 74-106 [facility] Work Phone: Comment on above: MANAGEMENT OF PATIEN T CARE PER NURSING PROTOCOL INR in Blood by Coagulation assayon 08-21-2021 INR Coag (Bld) [Relative time] 1.2 {INR} [facility] Work Phone: Laboratory - Coagulationon 0 08-21-2021 PT Coag (PPP) [Time] 14.9 s 11.7-14.9 [facility] Work Phone: Absolute lymphocyte counton 08-20-2021 Lymphocytes Auto (Unsp spec) [#/Vol] 0.77 10*3/uL 0.83-4.51 [facility] Work Phone: Basophil percentageon 2021 Basophils/100 WBC (Bld) 0.8 % 0-1 [facility] Work Phone: Bilirubin [Mass/Vol] 0.70 mg/dL 0.20-1.00 [facility] Work Phone: Comment on above: For patients on eltr ombopag therapy, use of Dimension [place] TBIL is not recommended. Chloride [Moles/Vol] 107 mmol/L 98-107 [facility] Work Phone: Eosinophils/100 WBC (Bld) 2.2 % 0-5 [facility] Work Phone: Glucose [Mass/Vol] 99 mg/dL 74-106 [facility] Work Phone: Neutrophils (Bld) [#/Vol] 4.9 10*3/uL 2.0-7.7 [facility] Work Phone: Neutrophils/100 WBC (Bld) 77.2 % 47-70 [facility] Work Phone: Potassium [Moles/Vol] 3.7 mmol/L 3.5-5.1 [facility] Work Phone: Protein [Mass/Vol] 6.2 g/dL 6.4-8.2 [facility] Work Phone: Sodium [Moles/Vol] 139 mmol/L 136-145 [facility] Work Phone: WBC (Bld) [#/Vol] 6.3 10*3/uL 4.4-11.0 [facility]: [phone] Blood erythrocytes count (nu mber/volume)on 08-20-2021 RBC (Bld) [#/Vol] 3.72 10*6/uL 4.6-6.2 [facility]: [phone] Blood hemoglobin measurement (mass/volume)on 08-20-2021 Hemoglobin (Bld) [Mass/Vol] 7.8 g/dL 13.0-16.5 [facility] Work Phone: [phone] Blood lymphocytes/100 leukoc yteson 08-20-2021 Lymphocytes/100 WBC (Bld) 12.2 % 19-41 [facility] Work Phone: [phone] Blood monocytes/100 leukocyt eson 08-20-2021 Monocytes/100 WBC (Bld) 6.8 % 0-10 [facility] Work Phone: [phone] Blood platelet mean volumeon 08-20-2021 Platelet [...] 45-117 [facility] Work Phone: [phone] ALT [Catalytic activity/Vol] 335 U/L 16-61 [facility] Work Phone: [phone] CO2 [Moles/Vol] 27.0 mmol/L 21.0-32.0 [facility] Work Phone: Globulin (S) [Mass/Vol] 3.5 g/dL 2.2-4.2 [facility] Work Phone: [phone] Urea nitrogen/Creatinine [Mass ratio] 11.9 mg/mg 10-20 [facility] Work Phone: [phone] Laboratory - Hematology and Cell countson 08-20-2021 Erythrocyte distribution width (RBC) [Entitic vol] 50.8 fL 35.1-43.9 [facility] Work Phone: [phone] Erythrocyte distribution width (RBC) [Ratio] 19.5 % 11.6-14.6 [facility] Work Phone: [phone] Immature granulocytes/100 WBC (Bld) 0.800 % 0.0-0.9 [facility] Work Phone: [phone] Comment on above: IG% - Immature Granu locytes (promyelocytes, myelocytes and metamyelocytes) > 1% indicates that a LEFT SHIFT is Present. MCH (RBC) [Entitic mass] 21.0 pg 27.0-32.0 [facility] Work Phone: [phone] Nucleated RBC/100 WBC (Bld) [Ratio] 0 % 0-5 [facility] Work Phone: [phone] MCHC Auto (RBC) [Mass/Vol]on 08-20-2021 MCHC (RBC) [Mass/Vol] 28.8 g/dL 32-36 [facility] Work Phone: [phone] Panel Informationon 08-20 Estimated Creatinine Clearance Calc 63.96 ml/min [facility] Work Phone: [phone] Estimated GFR (MDRD) Amer 93 mL/min >60 [facility] Work Phone: [phone] Comment on above: GFR Calc Estimated GFR (MDRD) Non-Af Amer 77 mL/min >60 [facility] Work Phone: [phone] Comment on above: Non- GFR Calc Platelets bldon 08-20-2021 Platelets (Bld) [#/Vol] 409 10*3/uL 150-450 [facility] Work Phone: [phone] Serum or plasma albumin luis urement (mass/volume)on 08-20-2021 Albumin [Mass/Vol] 2.7 g/dL 3.2-5.0 [facility] Work Phone: [phone] Serum or plasma albumin/glob ulin mass ratioon 08-20-2021 Albumin/Globulin [Mass ratio] 0.8 {ratio} 0.9-2.4 [facility] Work Phone: Serum or plasma calcium luis urement (mass/volume)on 08-20-2021 Calcium [Mass/Vol] 7.9 mg/dL 8.5-10.1 [facility] Work Phone: Serum or plasma creatinine m easurement (mass/volume)on 08-20-2021 Creatinine [Mass/Vol] 1.01 mg/dL 0.70-1.30 [facility] Work Phone: Comment on above: The validity of the calculated GFR & GFRAA in patients over 70 years has not been determined. Clinical correlation is essential. Serum or plasma urea nitroge n measurement (mass/volume)on 08-20-2021 Urea nitrogen [Mass/Vol] 12 mg/dL 7-18 [facility] Work Phone: [phone] Thin prep Papanicolaou smear with manual screeningon 08-20-2021 Thin prep Papanicolaou smear with manual screening 150 U/L 15-37 [facility] Work Phone: Thin prep Papanicolaou smear with manual screening 5 5-15 [facility] Work Phone: [phone] Laboratory - Coagulationon 0 08-19-2021 aPTT Coag (Bld) [Time] 37.1 s 24.1-36.2 [facility] Work Phone: No Panel Informationon 08-19 Troponin I High Sensitivity 15 pg/mL 3.0-78.0 [facility] Work Phone: Comment on above: Please Note: New [place] t Units and Gender Specific Reference Ranges. For more information see Policy Stat Procedure [place] High Sensitivity Troponin (TNIH) and attachments. Whole [...] Work Phone: Bilirubin [Mass/Vol] 0.30 mg/dL 0.20-1.00 [facility] Work Phone: Comment on above: For patients on eltr ombopag therapy, use of Dimension [place] TBIL is not recommended. Chloride [Moles/Vol] 101 mmol/L 98-107 [facility] Work Phone: Eosinophils/100 WBC (Bld) 0.0 % 0-5 [facility] Work Phone: Glucose [Mass/Vol] 162 mg/dL 74-106 [facility] Work Phone: Comment on above: Fasting Glucose resu lt greater than or equal to 126 mg/dL suggests DIABETES MELLITUS per A.D.A. criteria. Neutrophils (Bld) [#/Vol] 9.7 10*3/uL 2.0-7.7 [facility] Work Phone: Neutrophils/100 WBC (Bld) 93.3 % 47-70 [facility] Work Phone: Potassium [Moles/Vol] 3.8 mmol/L 3.5-5.1 [facility] Work Phone: Protein [Mass/Vol] 8.1 g/dL 6.4-8.2 [facility] Work Phone: Sodium [Moles/Vol] 135 mmol/L 136-145 [facility] Work Phone: WBC (Bld) [#/Vol] 10.4 10*3/uL 4.4-11.0 [facility]: Blood erythrocytes count (nu mber/volume)on 08-12-2021 RBC (Bld) [#/Vol] 4.84 10*6/uL 4.6-6.2 [facility] Work Phone: Blood hemoglobin measurement (mass/volume)on 08-12-2021 [...] 2.2-4.2 [facility] Work Phone: Lipase [Catalytic activity/Vol] 46 U/L 73-393 [facility] Work Phone: Urea nitrogen/Creatinine [Mass ratio] 9.0 mg/mg 10-20 [facility] Work Phone: Laboratory - Coagulationon 0 08-12-2021 PT Coag (PPP) [Time] 23.1 s 11.7-14.9 [facility] Work Phone: Laboratory - Hematology and Cell countson 08-12-2021 Anisocytosis Ql (Bld) 1+ [facility] Work Phone: Erythrocyte distribution width (RBC) [Entitic [...] 0-5 [facility] Work Phone: [phone] MCHC Auto (RBC) [Mass/Vol]on 08-12-2021 MCHC (RBC) [Mass/Vol] 28.7 g/dL 32-36 [facility] Work Phone: No Panel Informationon 08-12 Estimated Creatinine Clearance Calc 58.20 ml/min [facility] Work Phone: Estimated GFR (MDRD) Amer 84 [...] (mass/volume)on 08-12-2021 Albumin [Mass/Vol] 4.2 g/dL 3.2-5.0 [facility] Work Phone: [phone] Serum or plasma albumin/glob ulin mass ratioon 08-12-2021 Albumin/Globulin [Mass ratio] 1.1 {ratio} 0.9-2.4 [facility] Work Phone: [phone] Serum or plasma calcium luis urement (mass/volume)on 08-12-2021 Calcium [Mass/Vol] 9.4 mg/dL 8.5-10.1 [facility] Work Phone: [phone] Serum or plasma creatinine m easurement (mass/volume)on 08-12-2021 Creatinine [Mass/Vol] 1.11 mg/dL 0.70-1.30 [facility] Work Phone: Comment on above: The validity [...] 5-15 [facility] Work Phone: CNCOon 02-11-2021 CNCO Letter Text Normal [facility] CNPNon 02-11-2021 CNPN Telephone (SPAGWO) PEDRO PABLO SIERRA ([id number]) 1950 M Date Time Provider Department 02/11/21 [...] [J43.9] - COMPOUNDED PRESCRIPTION Aerosol supplies Dx:J44.1 NPI#[id number] - ipratropium-albuterol (DUONEB) 0.5 mg-3 mg(2.5 mg [...] of acute osseous abnormality. 2. Atherosclerotic disease. Manager Intelligence: SHANELL Transcribe Date/Time: Nov 11 2020 10:50A Dictated by : RONALD COLUNGA MD This examination was interpreted and the report reviewed and electronically signed by: RONALD COLUNGA MD on Nov 11 2020 10:53AM [facility] DIVISION OF RADIOLOGY * * *Final [...] vasculature. DIVISION OF RADIOLOGY Provider, Aggie Ruben Velasquez - 11/11/2020 * * *Final Report* * [...] of acute osseous abnormality. 2. Atherosclerotic disease. Manager Intelligence: SHANELL Transcribe Date/Time: Nov 11 2020 10:50A Dictated by : RONALD COLUNGA MD This examination was interpreted and the report reviewed and electronically signed by: RONALD COLUNGA MD on Nov 11 2020 10:53AM EST [facility] Radiology Study observation (narrative) [facility] XR Femur - left AP and Later alOrdered By: Ccf Provider on 11-11-2020 [facility] CBC and Differentialon 04-10 Abs Baso 0.10 k/uL Normal <0.11 [facility] Abs [place] 0.44 k/uL Normal <0.87 [facility] Abs Neut 4.50 k/uL Normal 1.45-7.50 [facility] Absolute nRBC <0.01 Normal <0.01 [facility] Basophils/100 WBC (Bld) 1.4 % Normal [facility] DTYPE Auto Diff Normal [facility] [...] MCHC (RBC) [Mass/Vol] 28.5 g/dL Low 30.5-36.0 [facility] MCV (RBC) [Entitic vol] 76.1 fL Low 80.0-100.0 [facility] Monocytes/100 WBC (Bld) 6.4 % Normal [facility] Neutrophils/100 WBC (Bld) 65.1 % Normal [facility] BRAIN WO IVCONon 04-10-20 CT [...] base and imaged soft tissues are unremarkable. 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 IMPRESSION: NO CT EVIDENCE OF ACUTE INTRACRANIAL PROCESS. Manager Intelligence: SHANELL Transcribe Date/Time: Apr 10 2020 4:01P [...] Anion gap [Moles/Vol] 10 mmol/L Normal 9-18 [facility] AST [Catalytic activity/Vol] 17 U/L Normal 14-40 [facility] Bilirubin [Mass/Vol] mg/dL Low 0.2-1.3 [facility] Calcium [Mass/Vol] 9.8 mg/dL Normal 8.5-10.2 [facility] Chloride [Moles/Vol] 99 mmol/L Normal 97-105 [facility] CO2 [Moles/Vol] 30 mmol/L Normal 22-30 [facility] Creatinine [Mass/Vol] 1.05 mg/dL Normal 0.73-1.22 [facility] eGFR- Amer. >60 Normal [facility] Comment on above: Result Comment: The [place] Diabetes Association (ADA) provides guidance for cutoff [...] Standards of Medical Care in Diabetes 2016, [place] Diabetes Association. Diabetes Care. 2016.39(Suppl 1). Potassium [Moles/Vol] 3.7 mmol/L Normal 3.7-5.1 [facility] Protein [Mass/Vol] 7.6 g/dL Normal 6.3-8.0 [facility] Sodium [Moles/Vol] 139 mmol/L Normal 136-144 [facility] Urea nitrogen [Mass/Vol] 17 mg/dL Normal 9-24 [facility] ED NOTEon 04-10-2020 ED NOTE HNO ID: [id number] Author: Delaney NessRn) SEYMOUR Cortes Service: ? Author Type: Registered Nurse [...] ED in no acute distress with family. [facility] ED NOTE HNO ID: [id number] Author: Maddi NessRn) SEYMOUR Giles Service: ? Author Type: Registered Nurse Type: ED Notes Filed: 04/10/2020 4:08 PM Note Text: Patient to XR and CT. [facility] ED NOTE HNO ID: [id number] Author: Evelia (Medic) Shanelle Rios Service: ? Author Type: Senior Mobile Developer and Linen Room Custodian Type: ED Notes Filed: 04/10/2020 2:36 PM Note Text: BP was high in dr office. Sent pt down to be seen in ER [facility] ED PROV NOTEon 04-10-2020 ED PROV NOTE HNO ID: [id number] Author: Alie Barkley Service: Emergency Medicine Author Type: Physician Type: ED Provider Notes Filed: 04/11/2020 10:03 PM Note Text: ED Provider Note Patient Name: Pedro Pablo Sierra SERVICE DATE: 04/10/20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 Type: Therapy (PT/OT/Speech/Resp) Filed: 10/13/2019 1:35 PM Note Text: Physical Therapy Treatment SERVICE DATE: 10/13/2019 SERVICE TIME: 1235 to 1300 ROOM: [id number] Recommended Discharge Disposition: Home PT Anticipated Discharge [...] ness on feet Interventions Provided: Gait Training (81989) Gait Training (54289) Treatment Minutes: 25 2 units Skilled Intervention(s): [...] Consult : PVD s/p L LE redo METAL FURNITURE GLAZIER endarterectomy, L profundoplasty, iliac stenting on 10/08/19 Relevant Past Medical History: S/p L femoral endarterectomy/aoroili ac stenting Patient Report: Pt agreeable to participate in therapy session Home Environment Patient Lives With: Self/Alone Assistance Available: time clerk Entry To Home: Stairs;Other: See Comment(stair [...] October 13, 2019 TIME: 1:34 PM Normal [facility] Basic Metabolic Panlon 10-11 Anion gap [Moles/Vol] 11 mmol/L Normal 9-18 [facility] Comment on above: Performed By: #### C BC, PT, BMP ####[place] [phone] Calcium [Mass/Vol] 8.1 mg/dL Low 8.5-10.5 [facility] Comment on above: Performed By: #### C BC, PT, BMP ####[place] [phone] Chloride [Moles/Vol] 98 mmol/L Normal 98-110 [facility] Comment on above: Performed By: #### C BC, PT, BMP ####[place] [phone] CO2 [Moles/Vol] 26 mmol/L Normal 23-32 [facility] Comment on above: Performed By: #### C BC, PT, BMP ####[place] [phone] Creatinine [Mass/Vol] 0.64 mg/dL Low 0.70-1.40 [facility] Comment on above: Performed By: #### C BC, PT, BMP ####[place] [phone] eGFR- Amer. >60 Normal >60 [facility] Comment on above: Performed By: #### C BC, PT, BMP ####[place] [phone] GFR/1.73 sq M predicted among non-blacks MDRD (S/P/Bld) [Vol rate/Area] mL/min/{1.73_m2} Normal >60 [facility] Comment on above: Performed By: #### C BC, PT, BMP ####[place] [phone] Glucose [Mass/Vol] 151 mg/dL High 65-100 [facility] Comment on above: Performed By: #### C BC, PT, BMP ####[place] [phone] [place] [phone] Potassium [Moles/Vol] 3.6 mmol/L Normal 3.5-5.0 [facility] Comment on above: Performed By: #### C BC, PT, BMP ####[place] [phone] Sodium [Moles/Vol] 135 mmol/L Normal 135-146 [facility] Comment on above: Performed By: #### C BC, PT, BMP ####[place] [phone] Urea nitrogen [Mass/Vol] 8 mg/dL Low 10-25 [facility] Comment on above: Performed By: #### C BC, PT, BMP ####[place] [phone] CASE MANAGEMon 10-12-2019 CASE MANAGEM HNO ID: [id number] Author: Carly Hutchison) SEYMOUR Man Service: Case Management Author Type: Registered Nurse Type: Care Mgt Progress Note Filed: 10/12/2019 12:39 PM Note Text: CARE MANAGEMENT PROGRESS NOTE SERVICE DATE: 10/12/2019 SERVICE TIME: 1230 LOS: 4 days Needs Prior to Discharge: To Be Determined Clinicals faxed to [facility] SIGNATURE: Carly Man RN,BSN PATIENT NAME: Pedro Pablo Sierra DATE: October 12, 2019 TIME: 12:38 PM PAGER/CONTACT #: [phone] [facility] CASE MANAGEM HNO ID: [id number] Author: Carly Hutchison) Donovan RN Service: Case [...] IM letter, explained appeal process. SIGNATURE: Carly Man, RN,BSN PATIENT NAME: Pedro Pablo Sierra DATE: October 12, 2019 TIME: 10:14 AM PAGER/CONTACT #: [phone] Normal [facility] CBCon 10-12-2019 Erythrocyte distribution width (RBC) [Ratio] 16.0 % High 11.5-15.0 [facility] Comment on above: Performed By: #### C BC, PT, BMP ####[place] [phone] Hematocrit (Bld) [Volume fraction] 29.3 % Low 39.0-51.0 [facility] Comment on above: Performed By: #### C LARRY, PT, BMP ####[place] [phone] Hemoglobin (Bld) [Mass/Vol] 9.7 g/dL Low 13.0-17.0 [facility] Comment on above: Performed By: #### C BC, PT, BMP ####[place] [phone] MCH (RBC) [Entitic mass] 30.3 pG Normal 26.0-34.0 [facility] Comment on above: Performed By: #### C BC, PT, BMP ####[place] [phone] MCHC (RBC) [Mass/Vol] 33.1 g/dL Normal 30.5-36.0 [facility] Comment on above: Performed By: #### C BC, PT, BMP ####[address] [phone] MCV (RBC) [Entitic vol] 91.6 fL Normal 80.0-100.0 [facility] Comment on above: Performed By: #### C BC, PT, BMP ####[address] [phone] Platelet mean volume (Bld) [Entitic vol] 10.2 fL Normal 9.0-12.7 [facility] Comment on above: Performed By: #### C BC, PT, BMP ####[place] [phone] Platelets (Bld) [#/Vol] 173 10*3/uL Normal 150-400 [facility] Comment on above: Performed By: #### C BC, PT, BMP ####[place] [phone] RBC (Bld) [#/Vol] 3.20 10*6/uL Low 4.20-6.00 [facility] Comment on above: Performed By: #### C BC, PT, BMP ####[place] [phone] WBC (Bld) [#/Vol] 5.98 10*3/uL Normal 3.70-11.00 [facility] Comment on above: Performed By: #### C BC, PT, BMP ####[place] [phone] NURSING PROGon 10-12-2019 NURSING PROG HNO ID: [id number] Author: Daphney (Rn) SEYMOUR Baron Service: Nursing Author Type: Registered Nurse Type: Nursing Progress Note Filed: 10/12/2019 4:25 PM Note Text: Nursing Progress Note Patient Name: Pedro Pablo Sierra Patient Location: [facility]/ __ Daily Note: 0900: Pt up to chair with 2 assist and walker. Pt states left leg is painful, but able to bear weight. Pt does not want to be discharged at this time, PT/OT recommending skilled, pt refusing and wanting home care around the clock. Pt requesting robitussin for cough, given at 0841 per order. 1130: Pt assisted to bathroom with surgical assistant and walker. Pt was able to ambulate from bathroom to bed using walker with standby assist. 1610: Incision to left groin oozing serosang drainage. Gown saturated and needed to be changed. Abd and paper tape applied to cover and collect drainage. Pt c/o pain to left groin, 01/26. Medicated with 10mg po oxycodone. This note was completed by: Daphney Baron RN [facility] PROGRESSon 10-12-2019 PROGRESS HNO ID: [id number] Author: Elly (Binu Brown Service: Vascular Surgery [...] patient (fl,oh) 10/08/19 1645 pneumatic compression stockings (ks,oh) VTE Prophylaxis: on AC ALLERGIES No Known Allergies Objective PHYSICAL EXAM: Patient Vitals for the past 24 hrs: BP Temp Temp src Pulse Resp SpO2 10/12/19 0714 ? ? ? 89 16 ? 10/12/19 0703 (!) 121/46 36.7 ?C (98.1 ?F) Temporal 92 16 88 % 10/11/19 2307 148/52 37.2 ?C (99 ?F) Temporal 81 16 94 % 10/11/196 ? ? ? 81 ? ? 10/11/190 [...] w/ rest pain and is s/p L METAL FURNITURE GLAZIER EA w/ bovine patch, L RADHA and EIA thrombectomy, L CI and EI stenting 10/07 c/b thrombosis s/p : EIA to METAL FURNITURE GLAZIER bypass graft w. Ringed PTFE 10/09. Plan: [...] CRISPIN stenting on 10/23, UC, CAD previous KS, DM, HTN, HLD, COPD Overall Course: 63 [...] and weekends, please contact the General Surgery Warp Dyeing Tender pager, [phone] Normal [facility] Protimeon 10-12-2019 PT Coag (PPP) [Time] 15.6 s High 9.7-13.0 [facility] Comment on above: Performed By: #### C BC, PT, BMP ####[facility] [place], [place] [phone] PT Coag (PPP) [Time] 1.5 s High 0.9-1.3 [facility] Comment on above: Result Comment: Teri min K Antagonist (VKA) Therapeutic Range: INR 2 to 3 (Target INR of 2.5) Note: For patients treated with VKA drugs, such as warfarin, the [employer] 2012 Guideline recommends [...] 2017, 70: 252-289 Performed By: #### C LARRY, PT, BMP ####[facility] [place], [place] [phone] ANES POSTPROC EVALon 020 ANES POSTPROC EVAL HNO ID: [id number] Author: Cassie Zavala Service: ? Author Type: [...] October 11, 2019 TIME: 7:41 AM CSN: [id number] Normal [facility] Basic Metabolic Panlon 10-10 Anion gap [Moles/Vol] 9 mmol/L Normal 9-18 [facility] Comment on above: Performed By: #### C LARRY, BMP, MG1, PHOS ####[facility] [place], [place] [phone] Calcium [Mass/Vol] 7.7 mg/dL Low 8.5-10.5 [facility] Comment on above: Performed By: #### C BC, BMP, MG1, PHOS ####[phone] Chloride [Moles/Vol] 101 mmol/L Normal 98-110 [facility] Comment on above: Performed By: #### C BC, BMP, MG1, PHOS ####[place] [phone] CO2 [Moles/Vol] 26 mmol/L Normal 23-32 [facility] Comment on above: Performed By: #### C BC, BMP, MG1, PHOS ####[place] [phone] Creatinine [Mass/Vol] 0.63 mg/dL Low 0.70-1.40 [facility] Comment on above: Performed By: #### C BC, BMP, MG1, PHOS ####[place] [phone] eGFR- Amer. >60 Normal >60 [facility] Comment on above: Performed By: #### C BC, BMP, MG1, PHOS ####[place] [phone] GFR/1.73 sq M predicted among non-blacks MDRD (S/P/Bld) [Vol rate/Area] mL/min/{1.73_m2} Normal >60 [facility] Comment on above: Performed By: #### C BC, BMP, MG1, PHOS ####[place] [phone] Glucose [Mass/Vol] 107 mg/dL High 65-100 [facility] Comment on above: Performed By: #### C BC, BMP, MG1, PHOS ####[place] [phone] Potassium [Moles/Vol] 3.9 mmol/L Normal 3.5-5.0 [facility] Comment on above: Performed By: #### C BC, BMP, MG1, PHOS ####[facility] [place], [place] [phone] Sodium [Moles/Vol] 136 mmol/L Normal 135-146 [facility] Comment on above: Performed By: #### C BC, BMP, MG1, PHOS ####[place] [address] [place], [place] [phone] Urea nitrogen [Mass/Vol] 8 mg/dL Low 10-25 [facility] Comment on above: Performed By: #### C BC, BMP, MG1, PHOS ####[place] [phone] [place], [place] [phone] CASE MGT INIT ASSESon 2019 CASE MGT INIT [facility] HNO ID: [id number] Author: Bri Hutchison) SEYMOUR Swann Service: Case Management Author Type: Registered Nurse Type: Care Mgt Initial Assessment Filed: 10/11/2019 2:43 PM Note Text: CARE MANAGEMENT PROGRESS NOTE SERVICE DATE: 10/11/2019 SERVICE TIME: 2:38 PM LOS: 3 days [place] of Choice Given: Yes Level of Care Discussed: Home Care Financial Disclosure Provided: Yes Financial Disclosure Comments: discussed Needs Prior to Discharge: To Be Determined;Home Care Order CM discussed with pt discharge planning. pt has his home set up for his needs with elevator and refusing rehab at this time due to Covid 19 risks. Pt was active with [facility] for nurse visit and prefers to continue. CM made referral via ascripts, pt will need F2F for PT/OT/SN at d/c. CM flagged weekend CM staff for potential d/c this weekend and will need AVS faxed at d/c to [phone]. CM to follow as needed. SIGNATURE: Bri Swann RN,BSN PATIENT NAME: Pedro Pablo Sierra DATE: October 11, 2019 TIME: 2:38 PM PAGER/CONTACT #: [phone] Normal [facility] CBCon 10-11-2019 Erythrocyte distribution width (RBC) [Ratio] 15.8 % High 11.5-15.0 [facility] Comment on above: Performed By: #### C BC, BMP, MG1, PHOS ####[place] [phone] Hematocrit (Bld) [Volume fraction] 27.2 % Low 39.0-51.0 [facility] Comment on above: Performed By: #### C BC, BMP, MG1, PHOS ####[place] [phone] Hemoglobin (Bld) [Mass/Vol] 8.9 g/dL Low 13.0-17.0 [facility] Comment on above: Performed By: #### C BC, BMP, MG1, PHOS ####[place] [phone] MCH (RBC) [Entitic mass] 29.4 pG Normal 26.0-34.0 [facility] Comment on above: Performed By: #### C BC, BMP, MG1, PHOS ####[place] [phone] MCHC (RBC) [Mass/Vol] 32.7 g/dL Normal 30.5-36.0 [facility] Comment on above: Performed By: #### C BC, BMP, MG1, PHOS ####[place] [phone] MCV (RBC) [Entitic vol] 89.8 fL Normal 80.0-100.0 [facility] Comment on above: Performed By: #### C BC, BMP, MG1, PHOS ####[place] [phone] Platelet mean volume (Bld) [Entitic vol] 9.9 fL Normal 9.0-12.7 [facility] Comment on above: Performed By: #### C BC, BMP, MG1, PHOS ####[place] [phone] Platelets (Bld) [#/Vol] 140 10*3/uL Low 150-400 [facility] Comment on above: Performed By: #### C BC, BMP, MG1, PHOS ####[place] [phone] [place] [phone] RBC (Bld) [#/Vol] 3.03 10*6/uL Low 4.20-6.00 [facility] Comment on above: Performed By: #### C BC, BMP, MG1, PHOS ####[place] [phone] [place] [phone] WBC (Bld) [#/Vol] 5.78 10*3/uL Normal 3.70-11.00 [facility] Comment on above: Performed By: #### C BC, BMP, MG1, PHOS ####[place] [phone] Magnesiumon 10-11-2019 Magnesium [Mass/Vol] 2.0 mg/dL Normal 1.7-2.6 [facility] Comment on above: Performed By: #### C BC, BMP, MG1, PHOS ####[place] [phone] NURSING PROGon 10-11-2019 NURSING PROG HNO ID: [id number] Author: Briana (Rn) SEYMOUR Hardy Service: ? Author Type: Registered Nurse Type: Nursing Progress Note Filed: 10/11/2019 2:37 PM Note Text: Nursing Progress Note Patient Name: Pedro Pablo Sierra Patient Location: [id number] __ Daily Note: 0700. Bedside report received from manager night RN. Patient is resting comfortably in bed [...] note was completed by: Briana Hardy RN [facility] PROGRESSon 10-11-2019 PROGRESS HNO ID: [id number] Author: Noman Fish MD Service: Vascular Surgery [...] PLT 140* 167 173 Recent Labs 10/11/19 03310/10/19 1459 10/10/19 0559 NA 136 138 136 [...] CRISPIN stenting on 10/23, UC, CAD previous KS, DM, HTN, HLD, COPD Overall Course: 63 year old male with acute onset of BLE pain. Taken to OR for initiation of thrombolysis thru LCIA/TORITO Procedure/Surgeries: 1. Aortogram with bilateral ileofemoral runoff via left brachial artery 2. Left leg angiogram, 3rd order 3. Placement of lysis catheter from distal aorta to left SFA, 20cm treatment zone [facility] 07/02/2014 Thrombectomy Airway Difficulty: NA OR [...] TIME: 7:24 AM PAGER/CONTACT #: See Below [phone] For questions Monday through Monday 6am to 6pm please page Red Team [phone] For questions during nights (6pm - 6am) and weekends, please contact the General Surgery Warp Dyeing Tender pager, [phone] [facility] PROGRESS HNO ID: [id number] Author: Rashawn Huntley Service: Critical Care Author [...] CURRENT MEDICATIONS: Medications reviewed. Please refer to iLive for list of inpatient medications. Current Facility-Administered [...] INTRAVENOUS q 2 H PRN Elly (Res) Trudy[place] 25 mcg at 10/11/19 0648 - hyoscyamine [...] tab(s) (PLAVIX) 75 mg ORAL DAILY Roman (Final [employer] Dies) Heinly 75 mg at 10/10/19 0817 - polyethylene glycol 3350 17 g packet (MIRALAX, GLYCOLAX) 17 g ORAL DAILY PRN Elly (Res) [place] - docusate sodium 100 mg cap(s) (COLACE) 100 mg ORAL BID Elly (Res) [place] 100 mg at 10/10/192202 - budesonide 0.25 mg/2 mL 0.25 mg (PULMICORT) 0.25 mg INHALATION BID Elly (Res) [place] 0.25 mg at 10/10/192046 And - ipratropium-albuterol 3 mL nebulizer solution (DUONEB) 3 mL INHALATION QID Elly (Res) [place] 3 mL at 10/10/192046 - NaCl 0.9% [...] hospitalization are listed below. Plese refer to [facility] for a full listing of cultures obtained during this hospitalization. ? N/A DIAGNOSTIC TESTS: The following diagnostic tests/findings were reviewed: ? Most recent labs and imaging results. MOST RECENT CXR FINDINGS: Bibasilar atelectasis. OPERATIVE PROCEDURE(S): Date of surgery: 10/08/19 Procedure: Left common METAL FURNITURE GLAZIER endarterectomy with bovine path Left profundoplasty Left iliac stenting X4 (I-Cast X2, Jessica X2) Multiple angiograms with angioplasty Surgeon: Dr. May Date of surgery: 10/10/19 Procedure: Left EIA to METAL FURNITURE GLAZIER bypass with 7mm ringed PTFE end to end proximally to the previously placed bovine patch end to side distally. Completion angiogram Retrograde open RADHA angioplasty with 8 x 80 mustang balloon. Open thrombectomy L iliac artery by leg incision. Surgeon: Dr. 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 May on 10/08/19. She is admitted to SICU post-operatively for neurovascular checks and close hemodynamic monitoring. Developed L METAL FURNITURE GLAZIER occlusion POD2 and taken back to OR on 10/10/19 for left groin hematoma evacuation, left EIA to METAL FURNITURE GLAZIER PTFE bypass, left liac thrombectomy. Transferred to [...] -Tubes: Clark -Prophylaxis: SCDs -Dispo: Transfer to [facility] Medication and Non-Pharmacologic VTE Prophylaxis/Anticoagul ants Anticoagulant AND Antiplatelet Medications (From admission, onward) Start Dose Route Frequency Ordered Stop 10/10/19 0900 clopidogrel 75 mg tab(s) (PLAVIX) 75 mg ORAL DAILY 10/09/19 1043 -- 10/08/19 1700 activity - mobilize patient ([place], [place]) 10/08/19 1645 pneumatic compression stockings ([place], [place]) VTE Prophylaxis: Contraindicated elevated risk of bleeding To be seen and discussed on rounds with SICU staff: Dr. Huntley ICU Checklist --------- --- VTE Prophylaxis: SIGNATURE: Misael Jeter MD PATIENT NAME: Pedro Pablo Sierra DATE: October 11, 2019 TIME: 6:40 AM PAGER/CONTACT #: [phone] [facility] STAFF PHYSICIAN NOTE OF PERSONAL [...] HTN GERD ? Procedure/Surgeon 10/08/19 S/P L METAL FURNITURE GLAZIER endarterectomy with bovine path, profundoplasty and iliac [...] DO 11:08 AM October 11, 2019 Normal [facility] Phosphoruson 10-11-2019 Phosphate [Mass/Vol] 1.9 mg/dL Low 2.5-4.5 [facility] Comment on above: Performed By: #### C BC, BMP, MG1, PHOS ####[place] [address] [place], [place] [phone] Protimeon 10-11-2019 PT Coag (PPP) [Time] 10.9 s Normal 9.7-13.0 [facility] Comment on above: Performed By: #### P T ####[place] [id number] [place], [place] [phone] PT Coag (PPP) [Time] 1.0 s Normal 0.9-1.3 [facility] Comment on above: Result Comment: Teri min K Antagonist (VKA) Therapeutic Range: INR 2 to 3 (Target INR of 2.5) Note: For patients treated with VKA drugs, such as warfarin, the [employer] 2012 Guideline recommends [...] Chest 2012, 141:7S-47S Gio KENNY et al. [facility] 2017, 70: 252-289 Performed By: #### P T ####[place] [address] [place], [place] [phone] THERAPY NTon 10-11-2019 THERAPY NT HNO ID: [id number] Author: Gini (Pt) Eugenia Melvin Service: Physical Therapy Author Type: Physical Therapist Type: Therapy (PT/OT/Speech/Resp) Filed: 10/11/2019 10:43 AM Note Text: Physical Therapy Treatment SERVICE DATE: 10/11/2019 SERVICE TIME: 0935 to 1020 ROOM: [place] [address] Recommended Discharge Disposition: Home PT Anticipated Discharge [...] Diagnosis: Reduced mobility-other Interventions Provided: Therapeutic Activity (94493);Therapeutic Exercise (46031);Gait Training (61245) Therapeutic Exercise (14950) Treatment Minutes: 15 1 unit Skilled Intervention(s): Instruction in therapeutic exercise supine, very gentle with Daisha GOOD. Edu on rationale of exercises. Therapeutic Activity (39004) Treatment Minutes: 20 1 unit Skilled Intervention(s): Instructed patient in supine to sit pushing with upper extremities to sit up Instructed patient in supine to and from sit pushing with upper extremities to sit up Instruction in sit to stand technique with proper hand placement and body positioning at edge of bed/chair Gait Training (54605) Treatment Minutes: 10 1 unit Skilled Intervention(s): Instruction in sequencing, gait pattern and Instruction in correction of gait deviations Total Timed Code Treatment Minutes: 45 Total Treatment Time (minutes): 45 SUBJECTIVE: Current Hospital Course: Chart reviewed and no significant medical updates relevant to therapy were noted Reason for Physical Therapy Consult : PVD s/p L LE redo METAL FURNITURE GLAZIER endarterectomy, L profundoplasty, iliac stenting on 10/08/19 Relevant Past Medical History: S/p L femoral endarterectomy/aoroili ac stenting Patient Report: My Left leg is incredibly sore right now, moving is going to have to be slow. (And it is.) Home Environment Patient Lives With: Self/Alone Assistance Available: time clerk Entry To Home: Stairs;Other: See Comment(stair [...] complete details for this therapy evaluation/treatment. SIGNATURE: Gnii Melvin PT PATIENT NAME: Pedro Pablo Sierra DATE: October 11, 2019 TIME: 10:40 AM [facility] THERAPY NT HNO ID: [id number] Author: Caitlin Thomas Service: Occupational Therapy Author Type: Occupational Therapist Type: Therapy (PT/OT/Speech/Resp) Filed: 10/11/2019 6:48 AM Note Text: OCCUPATIONAL THERAPY MISSED VISIT SERVICE DATE: 10/11/2019 SERVICE TIME: 0647 to 0647 ROOM: [place] [address] Attempted Treatment. Patient not seen due to Incomplete Orders. Pt is currently on bedrest. Please update activity orders when medically appropriate for participation in Occupational Therapy treatment and out of bed mobility. Thank you. SIGNATURE: Caitlin Thomas OTR/L PATIENT NAME: Pedro Pablo Sierra DATE: October 11, 2019 TIME: 6:47 AM Normal [facility] ABG Complete Eval FOR SEFERINO Kauffman 10-10-2019 Base Excess 1 mmol/L Normal [facility] Comment on above: Result Comment: -3 t o 3 Performed By: #### A BGRTC ####[facility] [place], [place] [phone] Calcium [Mass/Vol] 1.29 mmol/L Normal 1.15-1.35 [facility] Comment on above: Performed By: #### A BGRTC ####[place] [phone] Carboxyhemoglobin,Art 1.0 % Normal <2.0 [facility] Comment on above: Performed By: #### A BGRTC ####[place] [phone] Chloride, Whole Bld FOR WEST USE ONLY 105 mmol/L Normal 98-107 [facility] Comment on above: Performed By: #### A BGRTC ####[place] [phone] CO2 [Moles/Vol] 27 mmol/L Normal 22.0-28.0 [facility] Comment on above: Performed By: #### A BGRTC ####[place] [phone] Glucose [Mass/Vol] 132 mg/dL High 65-100 [facility] Comment on above: Performed By: #### A BGRTC ####[place] [phone] HCO3 (Bld) [Moles/Vol] 26 mmol/L Normal 22-26 [facility] Comment on above: Performed By: #### A BGRTC ####[place] [phone] Hematocrit (Bld) [Volume fraction] 26.3 % Low 42.0-52.0 [facility] Comment on above: Performed By: #### A BGRTC ####[place] [phone] Hemoglobin (Bld) [Mass/Vol] 8.5 g/dL Low 14-18 [facility] Comment on above: Performed By: #### A BGRTC ####[place] [phone] Lactate [Moles/Vol] 1.5 mmol/L Normal 0.4-2.0 [facility] Comment on above: Performed By: #### A BGRTC ####[place] [phone] Methemoglobin 1.4 % Normal 0.4-1.5 [facility] Comment on above: Performed By: #### A BGRTC ####[place] [phone] O2 Administered 21.0 Normal [facility] Comment on above: Performed By: #### A BGRTC ####[place] [phone] Oxygen (Bld) [Partial pressure] 136 mm Hg High 80-100 [facility] Comment on above: Performed By: #### A BGRTC ####[place] [phone] Oxygen (Bld) [Partial pressure] 99 % High 90-98 [facility] Comment on above: Performed By: #### A BGRTC ####[place] [phone] Oxyhemoglobin, Art. 96 % Normal 94-100 [facility] Comment on above: Performed By: #### A BGRTC ####[place] [phone] pCO2 46 mm Hg Normal 35-48 [facility] Comment on above: Performed By: #### A BGRTC ####[place] [phone] pH (Bld) 7.37 [pH] Normal 7.35-7.45 [facility] Comment on above: Performed By: #### A BGRTC ####[phone] PO2FI FOR WEST USE ONLY 648 mmHG High 400-500 [facility] Comment on above: Performed By: #### A BGRTC ####[place] [phone] Potassium [Moles/Vol] 3.9 mmol/L Normal 3.5-5.0 [facility] Comment on above: Performed By: #### A BGRTC ####[place] [phone] Sodium [Moles/Vol] 137 mmol/L Normal 135-145 [facility] Comment on above: Performed By: #### A BGRTC ####[place] [phone] Base Excess 2 mmol/L Normal [facility] Comment on above: Result Comment: -3 t o 3 Performed By: #### A BGRTC ####[place] [phone] Calcium [Mass/Vol] 1.09 mmol/L Low 1.15-1.35 [facility] Comment on above: Performed By: #### A BGRTC ####[place] [phone] Carboxyhemoglobin,Art 1.3 % Normal <2.0 [facility] Comment on above: Performed By: #### A BGRTC ####[place] [phone] Chloride, Whole Bld FOR WEST USE ONLY 106 mmol/L Normal 98-107 [facility] Comment on above: Performed By: #### A BGRTC ####[place] [phone] CO2 [Moles/Vol] 28 mmol/L Normal 22.0-28.0 [facility] Comment on above: Performed By: #### A BGRTC ####[place] [phone] Glucose [Mass/Vol] 129 mg/dL High 65-100 [facility] Comment on above: Performed By: #### A BGRTC ####[place] [phone] HCO3 (Bld) [Moles/Vol] 27 mmol/L High 22-26 [facility] Comment on above: Performed By: #### A BGRTC ####[place] [phone] Hematocrit (Bld) [Volume fraction] 24.6 % Low 42.0-52.0 [facility] Comment on above: Performed By: #### A BGRTC ####[place] [phone] Hemoglobin (Bld) [Mass/Vol] 7.9 g/dL Low 14-18 [facility] Comment on above: Performed By: #### A BGRTC ####[place] [phone] Lactate [Moles/Vol] 1.1 mmol/L Normal 0.4-2.0 [facility] Comment on above: Performed By: #### A BGRTC ####[place] [phone] Methemoglobin 1.2 % Normal 0.4-1.5 [facility] Comment on above: Performed By: #### A BGRTC ####[place] [phone] O2 Administered 21.0 Normal [facility] Comment on above: Performed By: #### A BGRTC ####[place] [phone] Oxygen (Bld) [Partial pressure] 164 mm Hg High 80-100 [facility] Comment on above: Performed By: #### A BGRTC ####[place] [phone] Oxygen (Bld) [Partial pressure] 99 % High 90-98 [facility] Comment on above: Performed By: #### A BGRTC ####[place] [phone] Oxyhemoglobin, Art. 97 % Normal 94-100 [facility] Comment on above: Performed By: #### A BGRTC ####[place] [phone] pCO2 44 mm Hg Normal 35-48 [facility] Comment on above: Performed By: #### A BGRTC ####[facility] [place] [phone] pH (Bld) 7.40 [pH] Normal 7.35-7.45 [facility] Comment on above: Performed By: #### A BGRTC ####[facility] [place] [phone] PO2FI FOR WEST USE ONLY 781 mmHG High 400-500 [facility] Comment on above: Performed By: #### A BGRTC ####[facility] [place] [phone] Potassium [Moles/Vol] 3.6 mmol/L Normal 3.5-5.0 [facility] Comment on above: Performed By: #### A BGRTC ####[place] [phone] [place] [phone] Sodium [Moles/Vol] 137 mmol/L Normal 135-145 [facility] Comment on above: Performed By: #### A BGRTC ####[facility] [place] [phone] ALLIED HEALTHon 10-10-2019 ALLIED HEALTH HNO ID: [id number] Author: William Renee (Rt) Service: Radiology Author Type: Linen Room Custodian Type: Allied Health Filed: 10/10/2019 6:31 AM [...] RT Víctor October 10, 2019 6:31 AM [facility] ANES PRE-OPon 10-10-2019 ANES PRE-OP HNO ID: [id number] Author: Joey Sequeira Service: ? Author Type: [...] (+) Hypertension (+) PVD (peripheral vascular disease) ([facility]) (+) s/p left femoral endarterectomy/aortoil iac stenting 10/08/2019 (now with L METAL FURNITURE GLAZIER occlusion) PULMONARY (+) COPD (chronic obstructive pulmonary disease) (HCC) (+) PJ (obstructive sleep apnea) ANESTHESIA (+) PJ (obstructive sleep apnea) NEURO-PSYCH (+) Headache GI (+) GERD (gastroesophageal reflux disease) Other (+) Anemia due to acute blood loss (Hgb 7.4 this AM; will order 2 units PRBCs) (+) Lupus anticoagulant disorder ([facility]) I - PHYSICAL EVALUATION AIRWAY Patient [...] (iso-osmotic) 100 mL (ANCEF) 2 g INTRAVENOUS Warp Dyeing Tender to OR - NaCl 0.9% iv [...] movements. - COMPOUNDED PRESCRIPTION Aerosol supplies Dx:J44.1 NPI#[id number] - ipratropium-albuterol (DUONEB) 0.5 mg-3 mg(2.5 mg [...] October 10, 2019 TIME: 8:21 AM CSN: [id number] Normal [facility] APTTon 10-10-2019 aPTT Coag (Bld) [Time] 25.4 s Normal 23.0-32.4 [facility] Comment on above: Result Comment: Unfr [...] laboratory APTT reagent in use throughout the [facility]. Performed By: #### C BCDIF, PTT, FIBCT, PT ####[facility] [place], [place] [phone] aPTT Coag (Bld) [Time] 126.3 s High 23.0-32.4 [facility] Comment on above: Result Comment: Unfr [...] laboratory APTT reagent in use throughout the [facility]. Called to and read back by: Landry Quintana RN [facility] 10/10/19 Royce Mccormick Performed By: #### C BCDIF, BMP, MG1, PHOS, PTT, PT ####[facility] [place], [place] [phone] aPTT Coag (Bld) [Time] 44.1 s High 23.0-32.4 [facility] Comment on above: Result Comment: Unfr [...] laboratory APTT reagent in use throughout the [facility]. Performed By: #### P TT ####[place] [phone] Basic Metabolic Panlon 10-09 Anion gap [Moles/Vol] 11 mmol/L Normal 9-18 [facility] Comment on above: Performed By: #### C BCDIF, BMP, MG1, PHOS, PTT, PT ####[place] [phone] Calcium [Mass/Vol] 8.0 mg/dL Low 8.5-10.5 [facility] Comment on above: Performed By: #### C BCDIF, BMP, MG1, PHOS, PTT, PT ####[place] [phone] Chloride [Moles/Vol] 103 mmol/L Normal 98-110 [facility] Comment on above: Performed By: #### C BCDIF, BMP, MG1, PHOS, PTT, PT ####[place] [phone] CO2 [Moles/Vol] 24 mmol/L Normal 23-32 [facility] Comment on above: Performed By: #### C BCDIF, BMP, MG1, PHOS, PTT, PT ####[place] [phone] Creatinine [Mass/Vol] 0.68 mg/dL Low 0.70-1.40 [facility] Comment on above: Performed By: #### C BCDIF, BMP, MG1, PHOS, PTT, PT ####[place] [phone] eGFR- Amer. >60 Normal >60 [facility] Comment on above: Performed By: #### C BCDIF, BMP, MG1, PHOS, PTT, PT ####[place] [phone] GFR/1.73 sq M predicted among non-blacks MDRD (S/P/Bld) [Vol rate/Area] mL/min/{1.73_m2} Normal >60 [facility] Comment on above: Performed By: #### C BCDIF, BMP, MG1, PHOS, PTT, PT ####[place] [phone] Glucose [Mass/Vol] 127 mg/dL High 65-100 [facility] Comment on above: Performed By: #### C BCDIF, BMP, MG1, PHOS, PTT, PT ####[place] [phone] Potassium [Moles/Vol] 4.3 mmol/L Normal 3.5-5.0 [facility] Comment on above: Performed By: #### C BCDIF, BMP, MG1, PHOS, PTT, PT ####[place] [phone] Sodium [Moles/Vol] 138 mmol/L Normal 135-146 [facility] Comment on above: Performed By: #### C BCDIF, BMP, MG1, PHOS, PTT, PT ####[place] [phone] Urea nitrogen [Mass/Vol] 9 mg/dL Low 10-25 [facility] Comment on above: Performed By: #### C BCDIF, BMP, MG1, PHOS, PTT, PT ####[place] [phone] Anion gap [Moles/Vol] 8 mmol/L Low 9-18 [facility] Comment on above: Performed By: #### C BC, BMP, MG1, PHOS ####[place] [phone] Calcium [Mass/Vol] 7.9 mg/dL Low 8.5-10.5 [facility] Comment on above: Performed By: #### C BC, BMP, MG1, PHOS ####[place] [phone] Chloride [Moles/Vol] 101 mmol/L Normal 98-110 [facility] Comment on above: Performed By: #### C BC, BMP, MG1, PHOS ####[place] [phone] CO2 [Moles/Vol] 27 mmol/L Normal 23-32 [facility] Comment on above: Performed By: #### C BC, BMP, MG1, PHOS ####[place] [phone] Creatinine [Mass/Vol] 0.69 mg/dL Low 0.70-1.40 [facility] Comment on above: Performed By: #### C BC, BMP, MG1, PHOS ####[place] [phone] eGFR- Amer. >60 Normal >60 [facility] Comment on above: Performed By: #### C BC, BMP, MG1, PHOS ####[place] [phone] GFR/1.73 sq M predicted among non-blacks MDRD (S/P/Bld) [Vol rate/Area] mL/min/{1.73_m2} Normal >60 [facility] Comment on above: Performed By: #### C BC, BMP, MG1, PHOS ####[place] [phone] Glucose [Mass/Vol] 107 mg/dL High 65-100 [facility] Comment on above: Performed By: #### C BC, BMP, MG1, PHOS ####[place] [phone] Potassium [Moles/Vol] 3.8 mmol/L Normal 3.5-5.0 [facility] Comment on above: Performed By: #### C BC, BMP, MG1, PHOS ####[place] [phone] Sodium [Moles/Vol] 136 mmol/L Normal 135-146 [facility] Comment on above: Performed By: #### C BC, BMP, MG1, PHOS ####[phone] Urea nitrogen [Mass/Vol] 11 mg/dL Normal 10-25 [facility] Comment on above: Performed By: #### C BC, BMP, MG1, PHOS ####[phone] CASE MANAGEMon 10-10-2019 CASE MANAGEM HNO ID: [id number] Author: Bri (Rn) SEYMOUR Swann Service: Case Management Author Type: Registered [...] 10, 2019 TIME: 4:23 PM PAGER/CONTACT #: [phone] Normal [facility] CBCon 10-10-2019 Erythrocyte distribution width (RBC) [Ratio] 16.0 % High 11.5-15.0 [facility] Comment on above: Performed By: #### C BC, BMP, MG1, PHOS ####[place] [phone] Hematocrit (Bld) [Volume fraction] 23.2 % Low 39.0-51.0 [facility] Comment on above: Performed By: #### C BC, BMP, MG1, PHOS ####[place] [phone] [place] [phone] Hemoglobin (Bld) [Mass/Vol] 7.5 g/dL Low 13.0-17.0 [facility] Comment on above: Performed By: #### C BC, BMP, MG1, PHOS ####[place] [phone] MCH (RBC) [Entitic mass] 30.1 pG Normal 26.0-34.0 [facility] Comment on above: Performed By: #### C BC, BMP, MG1, PHOS ####[place] [phone] MCHC (RBC) [Mass/Vol] 32.3 g/dL Normal 30.5-36.0 [facility] Comment on above: Performed By: #### C BC, BMP, MG1, PHOS ####[place] [phone] MCV (RBC) [Entitic vol] 93.2 fL Normal 80.0-100.0 [facility] Comment on above: Performed By: #### C BC, BMP, MG1, PHOS ####[place] [phone] Platelet mean volume (Bld) [Entitic vol] 9.8 fL Normal 9.0-12.7 [facility] Comment on above: Performed By: #### C BC, BMP, MG1, PHOS ####[place] [phone] Platelets (Bld) [#/Vol] 180 10*3/uL Normal 150-400 [facility] Comment on above: Performed By: #### C BC, BMP, MG1, PHOS ####[place] [phone] RBC (Bld) [#/Vol] 2.49 10*6/uL Low 4.20-6.00 [facility] Comment on above: Performed By: #### C BC, BMP, MG1, PHOS ####[place] [phone] WBC (Bld) [#/Vol] 6.64 10*3/uL Normal 3.70-11.00 [facility] Comment on above: Performed By: #### C BC, BMP, MG1, PHOS ####[place] [phone] CBC and Differentialon 10-09 Abs Baso 0.03 k/uL Normal <0.11 [facility] Comment on above: Performed By: #### C BCDIF, PTT, FIBCT, PT ####[address]10 Abs [place] 0.69 k/uL Normal <0.87 [facility] Comment on above: Performed By: #### C BCDIF, PTT, FIBCT, PT ####[place] [phone] Abs Neut 5.56 k/uL Normal 1.45-7.50 [facility] Comment on above: Performed By: #### C BCDIF, PTT, FIBCT, PT ####[address]7110 Basophils/100 WBC (Bld) 0.4 % Normal [facility] Comment on above: Performed By: #### C BCDIF, PTT, FIBCT, PT ####[address]10 Eosinophils (Bld) [#/Vol] 10*3/uL Normal <0.46 [facility] Comment on above: Performed By: #### C BCDIF, PTT, FIBCT, PT ####[address]10 Eosinophils/100 WBC (Bld) 0.3 % Normal [facility] Comment on above: Performed By: #### C BCDIF, PTT, FIBCT, PT ####[place] [phone] Erythrocyte distribution width (RBC) [Ratio] 16.9 % High 11.5-15.0 [facility] Comment on above: Performed By: #### C BCDIF, PTT, FIBCT, PT ####[phone] Hematocrit (Bld) [Volume fraction] 21.7 % Low 39.0-51.0 [facility] Comment on above: Performed By: #### C BCDIF, PTT, FIBCT, PT ####[place] [phone] Hemoglobin (Bld) [Mass/Vol] 7.1 g/dL Low 13.0-17.0 [facility] Comment on above: Performed By: #### C BCDIF, PTT, FIBCT, PT ####[place] [phone] Lymphocytes (Bld) [#/Vol] 1.03 10*3/uL Normal 1.00-4.00 [facility] Comment on above: Performed By: #### C BCDIF, PTT, FIBCT, PT ####[place] [phone] Lymphocytes/100 WBC (Bld) 14.1 % Normal [facility] Comment on above: Performed By: #### C BCDIF, PTT, FIBCT, PT ####[place] [phone] MCH (RBC) [Entitic mass] 29.5 pG Normal 26.0-34.0 [facility] Comment on above: Performed By: #### C BCDIF, PTT, FIBCT, PT ####[place] [phone] MCHC (RBC) [Mass/Vol] 32.7 g/dL Normal 30.5-36.0 [facility] Comment on above: Performed By: #### C BCDIF, PTT, FIBCT, PT ####[place] [phone] MCV (RBC) [Entitic vol] 90.0 fL Normal 80.0-100.0 [facility] Comment on above: Performed By: #### C BCDIF, PTT, FIBCT, PT ####[address] [phone] Monocytes/100 WBC (Bld) 9.4 % Normal [facility] Comment on above: Performed By: #### C BCDIF, PTT, FIBCT, PT ####[place] [phone] Neutrophils/100 WBC (Bld) 75.8 % Normal [facility] Comment on above: Performed By: #### C BCDIF, PTT, FIBCT, PT ####[place] [phone] Platelet mean volume (Bld) [Entitic vol] 10.0 fL Normal 9.0-12.7 [facility] Comment on above: Performed By: #### C BCDIF, PTT, FIBCT, PT ####[place] [phone] Platelets (Bld) [#/Vol] 167 10*3/uL Normal 150-400 [facility] Comment on above: Performed By: #### C BCDIF, PTT, FIBCT, PT ####[place] [phone] RBC (Bld) [#/Vol] 2.41 10*6/uL Low 4.20-6.00 [facility] Comment on above: Performed By: #### C BCDIF, PTT, FIBCT, PT ####[place] [phone] WBC (Bld) [#/Vol] 7.33 10*3/uL Normal 3.70-11.00 [facility] Comment on above: Performed By: #### C BCDIF, PTT, FIBCT, PT ####[place] [phone] Abs Baso 0.04 k/uL Normal <0.11 [facility] Comment on above: Performed By: #### C BCDIF, BMP, MG1, PHOS, PTT, PT ####[place] [phone] Abs [place] 0.56 k/uL Normal <0.87 [facility] Comment on above: Performed By: #### C BCDIF, BMP, MG1, PHOS, PTT, PT ####[place] [address] Abs Neut 5.40 k/uL Normal 1.45-7.50 [facility] Comment on above: Performed By: #### C BCDIF, BMP, MG1, PHOS, PTT, PT ####[place] [address] Basophils/100 WBC (Bld) 0.6 % Normal [facility] Comment on above: Performed By: #### C BCDIF, BMP, MG1, PHOS, PTT, PT ####[place] [address] DTYPE Auto Diff Normal [facility] Comment on above: Performed By: #### C BCDIF, PTT, FIBCT, PT ####[place] [address] Performed By: #### C BCDIF, BMP, MG1, PHOS, PTT, PT ####[place] [address] Eosinophils (Bld) [#/Vol] 0.06 10*3/uL Normal <0.46 [facility] Comment on above: Performed By: #### C BCDIF, BMP, MG1, PHOS, PTT, PT ####[place] [address] Eosinophils/100 WBC (Bld) 0.8 % Normal [facility] Comment on above: Performed By: #### C BCDIF, BMP, MG1, PHOS, PTT, PT ####[place] [address] Erythrocyte distribution width (RBC) [Ratio] 16.6 % High 11.5-15.0 [facility] Comment on above: Performed By: #### C BCDIF, BMP, MG1, PHOS, PTT, PT ####[place] [phone] Hematocrit (Bld) [Volume fraction] 24.9 % Low 39.0-51.0 [facility] Comment on above: Performed By: #### C BCDIF, BMP, MG1, PHOS, PTT, PT ####[place] [phone] Hemoglobin (Bld) [Mass/Vol] 8.3 g/dL Low 13.0-17.0 [facility] Comment on above: Performed By: #### C BCDIF, BMP, MG1, PHOS, PTT, PT ####[place] [phone] Lymphocytes (Bld) [#/Vol] 1.07 10*3/uL Normal 1.00-4.00 [facility] Comment on above: Performed By: #### C BCDIF, BMP, MG1, PHOS, PTT, PT ####[place] [phone] Lymphocytes/100 WBC (Bld) 15.0 % Normal [facility] Comment on above: Performed By: #### C BCDIF, BMP, MG1, PHOS, PTT, PT ####[place] [phone] MCH (RBC) [Entitic mass] 30.3 pG Normal 26.0-34.0 [facility] Comment on above: Performed By: #### C BCDIF, BMP, MG1, PHOS, PTT, PT ####[place] [phone] MCHC (RBC) [Mass/Vol] 33.3 g/dL Normal 30.5-36.0 [facility] Comment on above: Performed By: #### C BCDIF, BMP, MG1, PHOS, PTT, PT ####[place] [phone] MCV (RBC) [Entitic vol] 90.9 fL Normal 80.0-100.0 [facility] Comment on above: Performed By: #### C BCDIF, BMP, MG1, PHOS, PTT, PT ####[place] [phone] Monocytes/100 WBC (Bld) 7.9 % Normal [facility] Comment on above: Performed By: #### C BCDIF, BMP, MG1, PHOS, PTT, PT ####[place] [phone] Neutrophils/100 WBC (Bld) 75.7 % Normal [facility] Comment on above: Performed By: #### C BCDIF, BMP, MG1, PHOS, PTT, PT ####[place] [phone] Platelet mean volume (Bld) [Entitic vol] 9.8 fL Normal 9.0-12.7 [facility] Comment on above: Performed By: #### C BCDIF, BMP, MG1, PHOS, PTT, PT ####[place] [phone] Platelets (Bld) [#/Vol] 173 10*3/uL Normal 150-400 [facility] Comment on above: Performed By: #### C BCDIF, BMP, MG1, PHOS, PTT, PT ####[place] [phone] RBC (Bld) [#/Vol] 2.74 10*6/uL Low 4.20-6.00 [facility] Comment on above: Performed By: #### C BCDIF, BMP, MG1, PHOS, PTT, PT ####[place] [phone] WBC (Bld) [#/Vol] 7.13 10*3/uL Normal 3.70-11.00 [facility] Comment on above: Performed By: #### C BCDIF, BMP, MG1, PHOS, PTT, PT ####[place] [phone] Fibrinogenon 10-10-2019 Fibrinogen 410 mg/dL High 200-400 [facility] Comment on above: Performed By: #### C BCDIF, PTT, FIBCT, PT ####[place] [phone] HISTORY PHYSICALon 0 HISTORY PHYSICAL HNO ID: [id number] Author: Ryan May MD Service: Vascular Surgery Author Type: Physician Type: HANDP Filed: 10/10/2019 9:03 AM Note Text: As a result of the 09/03/19 order by [facility] Director Libby Harris M.D. to cancel non-essential surgeries that would use PPE, unless special criteria are met, I have reviewed the clinical record for this patient and have determined that the scheduled procedure meets the criteria to go forward because there is a threat of permanent dysfunction of an extremity or organ system. Possible thrombosis of the left METAL FURNITURE GLAZIER graft. Possible hematoma. Plan to reexplore, evacuate hematoma, possible ileo-femoral bypass vs fem-fem bypass. Jermaine May MD Normal [facility] Hematocriton 10-10-2019 Hematocrit (Bld) [Volume fraction] 23.1 % Low 39.0-51.0 [facility] Comment on above: Performed By: #### H CT, HGB ####[place] [phone] Hemoglobinon 10-10-2019 Hemoglobin (Bld) [Mass/Vol] 7.4 g/dL Low 13.0-17.0 [facility] Comment on above: Performed By: #### H CT, HGB ####[place] [phone] Magnesiumon 10-10-2019 Magnesium [Mass/Vol] 1.8 mg/dL Normal 1.7-2.6 [facility] Comment on above: Performed By: #### C BCDIF, BMP, MG1, PHOS, PTT, PT ####[address], [place] [phone] Magnesium [Mass/Vol] 2.0 mg/dL Normal 1.7-2.6 [facility] Comment on above: Performed By: #### C BC, BMP, MG1, PHOS ####[facility] [place], [place] [phone] NURSING PROGon 10-10-2019 NURSING PROG HNO ID: [id number] Author: Yeimi NessRn) SEYMOUR Wong Service: ? Author Type: Registered Nurse Type: Nursing Progress Note Filed: 10/11/2019 7:38 AM Note Text: Nursing Progress Note Patient Name: Pedro Pablo Sierra Patient Location: [id number]/[facility] __ Daily Note: 1900 Received bedside report from Josse AHUJA. 1999 Assessment complete. Please see all flowsheets. 2100 2 units of blood ordered per Dr. Johnson. 2199 Started 1 unit of PRBC per order. 0 Dr. Johnson and supercharger mechanic Daphney rounding on pt. SBAR given. New orders received. 2214 Spoke [id number] with Dr. Johnson. Okay to go by cuff pressure. 5 Started 1 unit of PRBC per order. 0000 Reassessment complete. Please see all flowsheets. 0130 Dr. Johnson at bedside. SBAR given. Per Dr. Johnson, draw AM labs at 0330. 0400 Reassessment complete. Please see all flowsheets. 0715 Bedside report given to Briana AHUJA. Normal [facility] NURSING PROG HNO ID: [id number] Author: Fran NessRn) SEYMOUR Quintana Service: Critical Care Author Type: Registered Nurse Type: Nursing Progress Note Filed: 10/10/2019 7:55 PM Note Text: Nursing Progress Note Patient Name: Pedro Pablo Sierra Patient Location: [id number]/[facility] -01 __ Daily Note: 0800: Full assessment complete. 0810: Talking with Misael, who would like amlodipine held this AM, okay to give metoprolol, and okayed by vascular surgery resident to give plavix. 0830: OR team at bedside. SBAR report. Plan to give cefazolin and PRBCs in OR. 4216-0413: On the phone with Joseph (pt's ex-) who is concerned because she was not updated on when pt went to surgery and is not getting updates like before via text. Joseph is also stating that she signed papers at [facility] recently transfering Health Care POA into her name. Last AD is from 2013 with Michelle (daughter) as POA. 1042: Page to case management [facility] 245 in OR Mr. Sierra [phone]: Ania (pt's ex-) states that she submitted papers recently while at [facility] that she is healthcare POA. Last AD I see is 2013 that has Michelle Richmond (pt's daughter) as POA. -Josse AHUJA [id number] 1600: pT disoriented to self and time emerging from anesthesia. 1620: Pt calling stamp redemption clerk light stating he is bleeding. Upon assessment, blood seeping gown and chucks pad under pt. Pressure applied to L groin sight. Page to Dr. Jeter (surgical elastic knitter hand frame). 1621: Dr. Jeter at bedside, assuming full [...] note was completed by: Fran Quintana RN [facility] NURSING PROG HNO ID: [id number] Author: Chrystal NessRn) SEYMOUR Jacob Service: Critical Care Author Type: Registered Nurse Type: Nursing Progress Note Filed: 10/10/2019 6:32 AM Note Text: Nursing Progress Note Patient Name: Pedro Pablo Sierra Patient Location: [id number]/-[facility]-0 245- __ Daily Note: 1900: Bedside handoff received from SEYMOUR Patel. Patient resting in bed, Heparin gtt verified. Pulses dual checked 1999: Full assessment completed. See doc flowsheets. 0000: Reassessment completed. Pulses still present via dopplar. 0400: Reassessment completed. See doc flowsheets. 0545: Patient pulled out IV. Reduced access. Dr. Moody aware. IV fluids stopped. This note was completed by: Chrystal Jacob RN [facility] OPERATIVE NOon 10-10-2019 OPERATIVE NO HNO ID: [id number] Author: Ryan May MD Service: Vascular Surgery Author Type: Physician Type: Operative Report Filed: 10/10/2019 1:51 PM Note Text: OPERATIVE/PROCEDURE REPORT LOG ID: [id number] Surgery/Procedure Date: 10/10/2019 Incision/Procedure Start Time:9:52 AM Incision Close/Procedure End Time: 13:49 Surgeon(s)/Procedurali st(s) and It Security Manager(s): Surgeon(s) and Role: * Ryan May MD - Primary * Elly (Azalea) Stephanie - Resident - Assisting No Additional Staff Anesthesia: General Procedure(s): Left EIA to METAL FURNITURE GLAZIER bypass with 7mm ringed PTFE end to [...] to side to the patch. The proximal METAL FURNITURE GLAZIER was clamped with four orange clips. Flow [...] DATE: 10/10/2019 TIME: 1:40 PM PAGER/CONTACT #: [facility] PROGRESSon 10-10-2019 PROGRESS HNO ID: [id number] Author: Elly Brown Service: Vascular Surgery Author [...] (iso-osmotic) 100 mL (ANCEF) 2 g INTRAVENOUS Warp Dyeing Tender to OR - NaCl 0.9% iv [...] 1604 -- 10/08/19 1645 pneumatic compression stockings (ks,oh) VTE Prophylaxis: on hep gtt ALLERGIES No [...] hematoma evacuation, possible thrombectomy, possible fem/fem. 2U stamp redemption clerk to OR Ok to cont. AC Ancef stamp redemption clerk to OR HOSPITALIZATION(S) Indication for admission/procedure: BLE pain Important/Relevant PMH/PSH: s/p left femoral endarterectomy with patch, US guided access RCFA, L profundaplasty, RUFUS recanalization AND stenting, CRISPIN stenting on 10/23, UC, CAD previous [place], DM, HTN, HLD, COPD Overall Course: 63 year old male with acute onset of BLE pain. Taken to OR for initiation of thrombolysis thru LCIA/TORITO Procedure/Surgeries: 1. Aortogram with bilateral ileofemoral runoff via left brachial artery 2. Left leg angiogram, 3rd order 3. Placement of lysis catheter from distal aorta to left SFA, 20cm treatment zone [facility] 07/02/2014 Thrombectomy Airway Difficulty: NA OR [...] 10, 2019 TIME: 7:50 AM PAGER/CONTACT #: [phone] [facility] PROGRESS HNO ID: [id number] Author: Rashawn Huntley Service: Critical Care Author [...] CURRENT MEDICATIONS: Medications reviewed. Please refer to [facility] for list of inpatient medications. [...] DAILY Juliana (Yariel) Akshat 1 Patch at 10/09/191123 And - nicotine -- REMOVE patch OTHER DAILY Andrews (Pa) Akshat And - nicotine - verify patch OTHER q 8 H Julinaa (Yariel) Akshat - clopidogrel 75 mg tab(s) (PLAVIX) 75 mg ORAL DAILY Roman Bello Heinly - polyethylene glycol 3350 17 g packet (MIRALAX, GLYCOLAX) 17 g ORAL DAILY PRN Roman Fermininhenry - docusate sodium 100 mg cap(s) (COLACE) 100 mg ORAL BID Roman Bello Heinly 100 mg at 10/09/192123 - budesonide 0.25 mg/2 mL 0.25 mg (PULMICORT) 0.25 mg INHALATION BID Juliana Jesus) Akshat 0.25 mg at 10/09/191901 And - ipratropium-albuterol 3 mL nebulizer solution (DUONEB) 3 mL INHALATION QID Juliana Jesus) Akshat 3 mL at 04/22/20 1902 - heparin iv infusion (LOW DOSE ACS/NOMOGRAM) 25,000 units in NaCl 0.45% 250 mL PREMIX 0-3,000 Units/hr INTRAVENOUS CONTINUOUS Misael Jteer MD 11 mL/hr at 10/10/19 0012 1,100 Units/hr at 10/10/19 0012 And - heparin RATE CHANGE bolus 1,000-4,000 Units for subtherapeutic aptt results 1,000-4,000 Units INTRAVENOUS PRN Misael Jeter MD 2,400 Units at 10/10/19 0012 - ceFAZolin iv piggyback 2 g in D5W (iso-osmotic) 100 mL (ANCEF) 2 g INTRAVENOUS Warp Dyeing Tender to OR Juliana Oden (Pa) - [...] 30 mL ORAL/FEEDING TUBE DAILY PRN Rashawn uHntley - acetaminophen 1,000 mg tab(s) (TYLENOL) 1,000 [...] (6 AM) Rashawn Medrick 40 mg at 10/10/19535 - dextrose 40 % 15 g 15 [...] hospitalization are listed below. Plese refer to iLive for a full listing of cultures obtained during this hospitalization. ? N/A DIAGNOSTIC TESTS: The following diagnostic tests/findings were reviewed: ? Most recent labs and imaging results. MOST RECENT CXR FINDINGS: Increased vascular markings, likely fluid overload. OPERATIVE PROCEDURE(S): Date of surgery: 10/08/19 Procedure: Left common METAL FURNITURE GLAZIER endarterectomy with bovine path Left profundoplasty Left iliac stenting X4 (I-Cast X2, Jessica X2) Multiple angiograms with angioplasty Surgeon: Dr. 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 May on 10/08/19. She is admitted to SICU post-operatively for neurovascular checks and close hemodynamic monitoring. Developed L METAL FURNITURE GLAZIER occlusion POD2 and going back to OR [...] -- 10/08/19 1700 activity - mobilize patient (ks,oh) 10/08/19 1645 pneumatic compression stockings (ks,oh) VTE Prophylaxis: VTE prophylaxis appropriate To be seen and discussed on rounds with SICU staff: Dr. Huntley ICU Checklist --------- --- VTE Prophylaxis: SIGNATURE: Misael Jeter MD PATIENT NAME: Pedro Pablo Sierra DATE: October 10, 2019 TIME: 6:40 AM PAGER/CONTACT #: [phone] [facility] STAFF PHYSICIAN NOTE OF PERSONAL INVOLVEMENT IN CARE ? I have reviewed the progress note?obtained and documented by the resident?and I personally participated in the ecehvarria components. I have discussed the case and management of the patient's care. The following comments revise or confirm relevant echevarria components of their note. LLE ischemia PVD Acute post-op pain Lupus anticoagulant PJ COPD Current smoker Essential HTN GERD ? Procedure/Surgeon 10/08/19 S/P L METAL FURNITURE GLAZIER endarterectomy with bovine path, profundoplasty and iliac [...] Huntley DO 7:56 AM October 10, 2019 [facility] PTT,Anticoag Therapyon 10-09 aPTT Coag (Bld) [Time] 109.7 s High 23.0-32.4 [facility] Comment on above: Result Comment: Unfr [...] laboratory APTT reagent in use throughout the [facility]. Called to and read back by: Landry Quintana RN [facility] 10/10/19 Noemí HOLLIS Performed By: #### P TTAC ####[place] [phone] Phosphoruson 10-10-2019 Phosphate [Mass/Vol] 3.0 mg/dL Normal 2.5-4.5 [facility] Comment on above: Performed By: #### C BCDIF, BMP, MG1, PHOS, PTT, PT ####[place] [phone] Phosphate [Mass/Vol] 2.1 mg/dL Low 2.5-4.5 [facility] Comment on above: Performed By: #### C BC, BMP, MG1, PHOS ####[address] [phone] Protimeon 10-10-2019 PT Coag (PPP) [Time] 10.5 s Normal 9.7-13.0 [facility] Comment on above: Performed By: #### C BCDIF, PTT, FIBCT, PT ####[place] [phone] PT Coag (PPP) [Time] 1.0 s Normal 0.9-1.3 [facility] Comment on above: Result Comment: Teri min K Antagonist (VKA) Therapeutic Range: INR 2 to 3 (Target INR of 2.5) Note: For patients treated with VKA drugs, such as warfarin, the [employer] 2012 Guideline recommends [...] Chest 2012, 141:7S-47S Gio RA, et al. [facility] 2017, 70: 252-289 Performed By: #### C BCDIF, PTT, FIBCT, PT ####[place] [phone] Performed By: #### C BCDIF, BMP, MG1, PHOS, PTT, PT ####[place] [phone] PT Coag (PPP) [Time] 10.9 s Normal 9.7-13.0 [facility] Comment on above: Performed By: #### C BCDIF, BMP, MG1, PHOS, PTT, PT ####[place] [phone] SURGICAL PATHOLOGYon 020 SURGICAL PATHOLOGY Specimen originated from [facility] Specimen #: [id number] Submitting Physician: RYAN MAY FINAL DIAGNOSIS Left femoral stent, removal Metal stent with thrombus. CEDRIC/violetta 10/15/2019 COMMENT Movat stain was performed to [...] x 1.0 cm. No vessel is seen. Mate Relief sections are submitted in formalin in one cassette. KVB/ka 10/14/2019 Gross examination performed at [facility], [address] [place] [address] Date of Report: 10/15/2019 Date of Procedure: 10/10/2019 Date of Receipt: 10/11/2019 Submitted by: RYAN MAY Location: [facility] Diagnostic interpretation performed at [place] [address]. [place] Number: [id number] [facility] THERAPY NTon 10-10-2019 THERAPY NT HNO ID: [id number] Author: Shakir NessPtPauline Coello Service: Physical Therapy Author Type: Physical Therapist Type: Therapy (PT/OT/Speech/Resp) Filed: 10/10/2019 1:18 PM Note Text: .PHYSICAL THERAPY MISSED VISIT SERVICE DATE: 10/10/2019 SERVICE TIME: 1317 to 1317 ROOM: [facility] ( OPERATING ROOM) Attempted Treatment. Patient not seen due to Surgery. SIGNATURE: Shakir Coello PT PATIENT NAME: Pedro Pablo Sierra DATE: October 10, 2019 TIME: 1:18 PM [facility] THERAPY NT HNO ID: [id number] Author: Caitlin Thomas Service: Occupational Therapy Author Type: Occupational Therapist Type: Therapy (PT/OT/Speech/Resp) Filed: 10/10/2019 7:37 AM Note Text: OCCUPATIONAL THERAPY MISSED VISIT SERVICE DATE: 10/10/2019 SERVICE TIME: 0736 to 0736 ROOM: [place] [address] Attempted Treatment. Patient not seen due to Surgery. Pt going back to OR. OT tx on hold today. Will continue to monitor. SIGNATURE: Caitlin Thomas OTR/L PATIENT NAME: Pedro Pablo Sierra DATE: October 10, 2019 TIME: 7:36 AM [facility] XR CHEST 1V FRONTAL PORTon 0 10-10-2019 [...] airspace opacities, which may relate to atelectasis. Manager Intelligence: PSCB Transcribe Date/Time: Oct 10 2019 6:59A Dictated by : DULCE BARRON MD This examination was interpreted and the report reviewed and electronically signed by: DULCE BARRON MD on Oct 10 2019 7:00AM EST [id number] Normal [facility] ALLIED HEALTHon 10-09-2019 ALLIED HEALTH HNO ID: [id number] Author: Markell NessLathe SpotterPauline Alonzo Service: Spiritual Care Author Type: Lathe Spotter Type: Allied Health Filed: 10/09/2019 5:11 PM [...] patient's RN who could page the on-call display maker. ? To contact the [facility] Care Department: Please call [phone]?or Page the On-Call Lathe Spotter at pager [phone].??? Thank you for the opportunity to be of service. SIGNATURE: Chaplain Terry PATIENT NAME: Pedro Pablo Sierra DATE: October 09, 2019 TIME: 5:09 PM PAGER/CONTACT #: [phone] Normal [facility] APTTon 10-09-2019 aPTT Coag (Bld) [Time] 20.8 s Low 23.0-32.4 [facility] Comment on above: Result Comment: Unfr [...] laboratory APTT reagent in use throughout the [facility]. Performed By: #### C BC, BMP, MG1, PHOS, PTT, PT ####[place] [id number] [place], [place] [phone] Basic Metabolic Panlon 10-08 Anion gap [Moles/Vol] 9 mmol/L Normal 9-18 [facility] Comment on above: Performed By: #### C BC, BMP, MG1, PHOS, PTT, PT ####[place] [id number] [place], [place] [phone] Calcium [Mass/Vol] 8.1 mg/dL Low 8.5-10.5 [facility] Comment on above: Performed By: #### C BC, BMP, MG1, PHOS, PTT, PT ####[place] [id number] [place], [place] [phone] Chloride [Moles/Vol] 101 mmol/L Normal 98-110 [facility] Comment on above: Performed By: #### C BC, BMP, MG1, PHOS, PTT, PT ####[place] [phone] CO2 [Moles/Vol] 26 mmol/L Normal 23-32 [facility] Comment on above: Performed By: #### C BC, BMP, MG1, PHOS, PTT, PT ####[place] [phone] Creatinine [Mass/Vol] 0.81 mg/dL Normal 0.70-1.40 [facility] Comment on above: Performed By: #### C BC, BMP, MG1, PHOS, PTT, PT ####[place] [phone] eGFR- Amer. >60 Normal >60 [facility] Comment on above: Performed By: #### C BC, BMP, MG1, PHOS, PTT, PT ####[place] [phone] GFR/1.73 sq M predicted among non-blacks MDRD (S/P/Bld) [Vol rate/Area] mL/min/{1.73_m2} Normal >60 [facility] Comment on above: Performed By: #### C BC, BMP, MG1, PHOS, PTT, PT ####[place] [phone] Glucose [Mass/Vol] 129 mg/dL High 65-100 [facility] Comment on above: Performed By: #### C BC, BMP, MG1, PHOS, PTT, PT ####[place] [phone] Potassium [Moles/Vol] 4.5 mmol/L Normal 3.5-5.0 [facility] Comment on above: Performed By: #### C BC, BMP, MG1, PHOS, PTT, PT ####[place] [phone] Sodium [Moles/Vol] 136 mmol/L Normal 135-146 [facility] Comment on above: Performed By: #### C BC, BMP, MG1, PHOS, PTT, PT ####[facility] [place], [place] [phone] Urea nitrogen [Mass/Vol] 15 mg/dL Normal 10-25 [facility] Comment on above: Performed By: #### C BC, BMP, MG1, PHOS, PTT, PT ####[place] [id number] [place], [place] [phone] CASE MANAGEMon 10-09-2019 CASE MANAGEM HNO ID: [id number] Author: Carly NessRn) SEYMOUR Man Service: Case Management Author Type: Registered [...] once a week. Pt nurse is from [facility] ). Carmen would like AVS faxed at d/c to [phone] SIGNATURE: Carly Man RN,BSN PATIENT NAME: Pedro Pablo Sierra DATE: October 09, 2019 TIME: 1:44 PM PAGER/CONTACT #: [phone] [facility] CASE MGT INIT ASSESon 2019 CASE MGT INIT [facility] HNO ID: [id number] Author: Carly NessRn) SEYMOUR Man Service: Case Management Author Type: Registered Nurse Type: Care Mgt Initial Assessment Filed: 10/09/2019 12:41 PM Note Text: CARE MANAGEMENT: ASSESSMENT AND DISCHARGE PLAN SERVICE DATE: October 09, 2019 SERVICE TIME: 1240 PRIMARY CARE PHYSICIAN: DAIJA MORTON MD ADMISSION STATUS: Inpatient Needs Prior to Discharge: To Be Determined MEDICAL: [facility] MEDICARE Patient/Mate Relief Stated Goals: To improve my functional status;To have reduction in symptoms;To return home to life as it was Health Insurance: Medicare;Medicaid Health Issues Impacting Discharge Plan: Newly diagnosed;Chronic Newly Diagnosed: s/p Redo left METAL FURNITURE GLAZIER endarterectomy, left profundoplasty, left iliac stenting Chronic: HTN, HLD, COPD, 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 Last discharge within 30 days: No Advance Directive: Current Advance Directive: Health Care Power of Photography Manager;Living Will In Chart: Yes Up To Date [...] Completely I feel financially burdened by my [id number] expenses for my prescription medication:: 0 - Disagree Completely Risk Score: 0 Patient is categorized as: Low risk < 2 Are you interested in bedside delivery of your medications? No Is Patient Psychosocially Complex?: No ASSESSMENT AND PLAN: Medical Needs: Medical Needs: Two or more chronic diseases;Fall risk or frequent falls Psychosocial Needs: Psychosocial Needs: None FREEDOM OF CHOICE EXPLAINED: [place] of Choice Given: No Reason Not Given: No placements necessary POTENTIAL TRANSITION PLANS To Be Determined 69 yo male admitted for vascular procedure, vascular surgery following. 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 Pt states B/B is on the same floor, pt has home o2 with portability and receives MOW. Pt states he has waiver services but does not know what services he receives. States he was supposed to get aide services but no one has come to his home. Pt has Waiver Coordinator Carmen ( [phone]) VM left and requested return call to determine what services pt has. PT/OT eval pending to determine needs at d/c. SIGNATURE: Carly Man RN,BSN PATIENT NAME: Pedro Pablo Sierra DATE: October 09, 2019 TIME: 12:26 PM PAGER/CONTACT #: [phone] Normal [facility] CBCon 10-09-2019 Erythrocyte distribution width (RBC) [Ratio] 15.7 % High 11.5-15.0 [facility] Comment on above: Performed By: #### C BC, BMP, MG1, PHOS, PTT, PT ####[facility] [place], [place] [phone] Hematocrit (Bld) [Volume fraction] 28.4 % Low 39.0-51.0 [facility] Comment on above: Performed By: #### C BC, BMP, MG1, PHOS, PTT, PT ####[place] [phone] MCH (RBC) [Entitic mass] 30.2 pG Normal 26.0-34.0 [facility] Comment on above: Performed By: #### C BC, BMP, MG1, PHOS, PTT, PT ####[place] [phone] MCHC (RBC) [Mass/Vol] 32.7 g/dL Normal 30.5-36.0 [facility] Comment on above: Performed By: #### C BC, BMP, MG1, PHOS, PTT, PT ####[place] [phone] MCV (RBC) [Entitic vol] 92.2 fL Normal 80.0-100.0 [facility] Comment on above: Performed By: #### C BC, BMP, MG1, PHOS, PTT, PT ####[place] [phone] Platelet mean volume (Bld) [Entitic vol] 9.9 fL Normal 9.0-12.7 [facility] Comment on above: Performed By: #### C BC, BMP, MG1, PHOS, PTT, PT ####[place] [phone] Platelets (Bld) [#/Vol] 220 10*3/uL Normal 150-400 [facility] Comment on above: Performed By: #### C BC, BMP, MG1, PHOS, PTT, PT ####[place] [phone] RBC (Bld) [#/Vol] 3.08 10*6/uL Low 4.20-6.00 [facility] Comment on above: Performed By: #### C BC, BMP, MG1, PHOS, PTT, PT ####[place] [phone] WBC (Bld) [#/Vol] 7.77 10*3/uL Normal 3.70-11.00 [facility] Comment on above: Performed By: #### C BC, BMP, MG1, PHOS, PTT, PT ####[place] [phone] CBC and Differentialon 10-08 Abs Baso <0.03 Normal <0.11 [facility] Comment on above: Performed By: #### C BCDIF ####[place] [phone] Abs [place] 0.50 k/uL Normal <0.87 [facility] Comment on above: Performed By: #### C BCDIF ####[place] [phone] Abs Neut 5.57 k/uL Normal 1.45-7.50 [facility] Comment on above: Performed By: #### C BCDIF ####[place] [phone] Basophils/100 WBC (Bld) 0.3 % Normal [facility] Comment on above: Performed By: #### C BCDIF ####[place] [phone] DTYPE Auto Diff Normal [facility] Comment on above: Performed By: #### C BCDIF ####[place] [phone] Eosinophils (Bld) [#/Vol] 10*3/uL Normal <0.46 [facility] Comment on above: Performed By: #### C BCDIF ####[place] [phone] Eosinophils/100 WBC (Bld) 0.1 % Normal [facility] Comment on above: Performed By: #### C BCDIF ####[place] [phone] Erythrocyte distribution width (RBC) [Ratio] 16.0 % High 11.5-15.0 [facility] Comment on above: Performed By: #### C BCDIF ####[place] [phone] Hematocrit (Bld) [Volume fraction] 28.9 % Low 39.0-51.0 [facility] Comment on above: Performed By: #### C BCDIF ####[place] [phone] Hemoglobin (Bld) [Mass/Vol] 9.3 g/dL Low 13.0-17.0 [facility] Comment on above: Performed By: #### C BCDIF ####[place] [phone] Performed By: #### C BC, BMP, MG1, PHOS, PTT, PT ####[place] [phone] Lymphocytes (Bld) [#/Vol] 1.19 10*3/uL Normal 1.00-4.00 [facility] Comment on above: Performed By: #### C BCDIF ####[place] [phone] Lymphocytes/100 WBC (Bld) 16.3 % Normal [facility] Comment on above: Performed By: #### C BCDIF ####[place] [phone] MCH (RBC) [Entitic mass] 30.0 pG Normal 26.0-34.0 [facility] Comment on above: Performed By: #### C BCDIF ####[place] [phone] MCHC (RBC) [Mass/Vol] 32.2 g/dL Normal 30.5-36.0 [facility] Comment on above: Performed By: #### C BCDIF ####[place] [phone] MCV (RBC) [Entitic vol] 93.2 fL Normal 80.0-100.0 [facility] Comment on above: Performed By: #### C BCDIF ####[address] [phone] Monocytes/100 WBC (Bld) 6.9 % Normal [facility] Comment on above: Performed By: #### C BCDIF ####[address] [phone] Neutrophils/100 WBC (Bld) 76.4 % Normal [facility] Comment on above: Performed By: #### C BCDIF ####[address] [phone] Platelet mean volume (Bld) [Entitic vol] 9.8 fL Normal 9.0-12.7 [facility] Comment on above: Performed By: #### C BCDIF ####[place] [phone] Platelets (Bld) [#/Vol] 200 10*3/uL Normal 150-400 [facility] Comment on above: Performed By: #### C BCDIF ####[address] [phone] RBC (Bld) [#/Vol] 3.10 10*6/uL Low 4.20-6.00 [facility] Comment on above: Performed By: #### C BCDIF ####[address] [phone] WBC (Bld) [#/Vol] 7.29 10*3/uL Normal 3.70-11.00 [facility] Comment on above: Performed By: #### C BCDIF ####[address] [phone] MEDICAL EMERon 10-09-2019 MEDICAL LEYLA HNO ID: [id number] Author: Misael Jeter MD Service: Critical Care [...] Jeter MD General Surgery Resident PGY2 Pager: [phone] 10/09/2019 5:11 PM Normal [facility] Magnesiumon 10-09-2019 Magnesium [Mass/Vol] 2.1 mg/dL Normal 1.7-2.6 [facility] Comment on above: Result Comment: Revi ewed Performed By: #### C BC, BMP, MG1, PHOS, PTT, PT ####[facility] [place], [place] [phone] NURSING PROGon 10-09-2019 NURSING PROG HNO ID: [id number] Author: Amanda (Rn) SEYMOUR Delgadillo Service: Nursing Author Type: Registered Nurse Type: Nursing Progress Note Filed: 10/09/2019 6:36 PM Note Text: Nursing Progress Note Patient Name: Pedro Pablo Sierra Patient Location: [id number] __ Daily Note: 1745: Bedside handoff received from SEYMOUR Shields. 1800: Dr. Fish at bedside. Patient c/o numbness in left leg. Bilateral DP and PT pulses doppled. Dr. Fish obtaining consent for surgery tomorrow. 1900: Bedside handoff given to SEYMOUR Jarrell. This note was completed by: Amanda Delgadillo RN [facility] NURSING PROG HNO ID: [id number] Author: Cornelius Hutchison) SEYMOUR Gonzalez Service: Nursing Author Type: Registered Nurse Type: Nursing Progress Note Filed: 10/09/2019 5:39 PM Note Text: Nursing Progress Note Patient Name: Pedro Pablo Sierra Patient Location: [id number]/[facility]-0 [facility] __ Daily Note: 0700 Bedside report received from previous shift RN. 0800 Assessment completed and charted. Neuro intact. VSS. Pulses present via doppler. See flowsheets. 1200 Assessment completed and charted. 1600 Reassessment completed and charted. 1730 Heparin gtt started. See AUG. 1744 Bedside report given to Tigist AHUJA. 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), DM, GERD, diverticulosis, anxiety, depression, lupus anticoagulant disorder on Coumadin, chronic low back pain, aortoiliac and left ileofemoral PAD s/p multiple interventions including left femoral endarterectomy/aortoil iac stenting in 10/2013 who underwent a Redo left METAL FURNITURE GLAZIER endarterectomy, left profundoplasty, left iliac stenting with [...] and weekends please page the Group Pager [phone] [facility] PROGRESSon 10-09-2019 PROGRESS HNO ID: [id number] Author: Noman Fish MD Service: Vascular Surgery [...] duplex US shows no flow in L METAL FURNITURE GLAZIER. Formal arterial duplex of LLE shows occluded METAL FURNITURE GLAZIER. Plan for exploration and revascularization with Dr. 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 ETX#[id number] For questions Monday through Monday 6am to 6pm please page Red Team [phone] For questions during nights (6pm - 6am) and weekends, please contact the General Surgery Warp Dyeing Tender pager, [phone] [facility] PROGRESS HNO ID: [id number] Author: Rashawn Huntley Service: Critical Care Author [...] CURRENT MEDICATIONS: Medications reviewed. Please refer to [facility] for list of inpatient medications. [...] ORAL DAILY Rashawn Medrick 100 mg at 10/08/19 180 - mirtazapine 15 mg (REMERON) 15 mg ORAL AT BEDTIME Rashawn Medrick 15 mg at 10/08/192102 - carBAMazepine 200 mg tab(s) (TEGretol) 200 mg ORAL BID Rashawn Medrick 200 mg at 10/08/192102 - gabapentin 300 mg cap(s) (NEURONTIN) 300 mg ORAL q 12 H Rashawn Medrick 300 mg at 10/08/19 180 - pantoprazole DR 40 mg tab(s) (PROTONIX) 40 mg ORAL DAILY (6 AM) Rashawn Medrick 40 mg at 10/09/19 06 - dextrose [...] hospitalization are listed below. Plese refer to [facility] for a full listing of cultures obtained during this hospitalization. ? N/A DIAGNOSTIC TESTS: The following diagnostic tests/findings were reviewed: ? Most recent labs and imaging results. MOST RECENT CXR FINDINGS: n/a OPERATIVE PROCEDURE(S): Date of surgery: 10/08/19 Procedure: Left common METAL FURNITURE GLAZIER endarterectomy with bovine path Left profundoplasty Left iliac stenting X4 (I-Cast X2, Jessica X2) Multiple angiograms with angioplasty Surgeon: Dr. 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 Huntley ICU Checklist --------- --- VTE Prophylaxis: SIGNATURE: Misael Jeter MD PATIENT NAME: Pedro Pablo Sierra DATE: October 09, 2019 TIME: 6:40 AM PAGER/CONTACT #: [phone] [facility] STAFF PHYSICIAN NOTE OF PERSONAL [...] Essential HTN GERD Procedure/Surgeon 10/08/19 S/P L METAL FURNITURE GLAZIER endarterectomy with bovine path, profundoplasty and iliac [...] DO 8:20 AM October 09, 2019 Normal [facility] PTT,Anticoag Therapyon 10-08 aPTT Coag (Bld) [Time] 23.9 s Normal 23.0-32.4 [facility] Comment on above: Result Comment: Unfr [...] laboratory APTT reagent in use throughout the [facility]. Performed By: #### P T, PTTAC ####[address] [phone] Phosphoruson 10-09-2019 Phosphate [Mass/Vol] 3.6 mg/dL Normal 2.5-4.5 [facility] Comment on above: Performed By: #### C BC, BMP, MG1, PHOS, PTT, PT ####[address] [phone] Protimeon 10-09-2019 PT Coag (PPP) [Time] 10.2 s Normal 9.7-13.0 [facility] Comment on above: Performed By: #### P T, PTTAC ####[address] [phone] PT Coag (PPP) [Time] 1.0 s Normal 0.9-1.3 [facility] Comment on above: Result Comment: Teri min K Antagonist (VKA) Therapeutic Range: INR 2 to 3 (Target INR of 2.5) Note: For patients treated with VKA drugs, such as warfarin, the [employer] 2012 Guideline recommends [...] JAC 2017, 70: 252-289 Performed By: #### P T, PTTAC ####[place] [phone] Performed By: #### C BC, BMP, MG1, PHOS, PTT, PT ####[place] [phone] PT Coag (PPP) [Time] 10.5 s Normal 9.7-13.0 [facility] Comment on above: Performed By: #### C BC, BMP, MG1, PHOS, PTT, PT ####[place] [phone] Staph aureus PCRon 0 MRSA PCR Negative [facility] Comment on above: Performed By: #### S APCR ####[place] [phone] S aureus Spec Source Nasal [facility] Comment on above: Performed By: #### S APCR ####[phone] Staph aureus PCR Negative [facility] Comment on above: Performed By: #### S APCR ####[place] [phone] [phone] THERAPY NTon 10-09-2019 THERAPY NT HNO ID: [id number] Author: Shakir Alicea (Pt) Mode Service: Physical Therapy Author Type: Physical Therapist Type: Therapy (PT/OT/Speech/Resp) Filed: 10/09/2019 2:58 PM Note Text: Physical Therapy Evaluation SERVICE DATE: 10/09/2019 SERVICE TIME: 1055 to 1120 ROOM: [id number] Recommended Discharge Disposition: Home PT Anticipated Discharge [...] ness on feet Interventions Provided: Evaluation;Gait Training (07207) $ Evaluation-Moderate (82014) Billed Units: 1 unit Gait Training (24215) Treatment Minutes: 10 1 unit Skilled Intervention(s): [...] Consult : PVD s/p L LE redo METAL FURNITURE GLAZIER endarterectomy, L profundoplasty, iliac stenting on 10/08/19 Relevant Past Medical History: CAD, KS, HTN, HLD, COPD, PJ, DM, anxiety, depression, blind R eye Patient Report: Pt agreeable to participate in therapy session Home Environment Patient Lives With: Self/Alone Assistance Available: time clerk Entry To Home: Stairs;Other: See Comment(stair [...] October 09, 2019 TIME: 2:46 PM Normal [facility]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 Angioplasty left METAL FURNITURE GLAZIER - REVSC OPN/PRG FEM/POP W/ANGIOPLASTY UNI 07/02/2014 [...] movements. Taking COMPOUNDED PRESCRIPTION Aerosol supplies Dx:J44.1 NPI#[id number] Taking ipratropium-albuterol (DUONEB) 0.5 mg-3 mg(2.5 mg [...] eye Neuro: No history of TIA's, stroke, REFINERY OPERATOR COKING tumor, impaired sensorium, hemiplegia, paraplegia or quadraplegia. [...] daily. 5. I have reviewed [facility] and [facility] records for a recent oximetry with [...] of my answers. ? Emilie Jauregui PA-C [facility] [place] [address] [phone] ? Attending Note I have personally discussed the patient and test results with Emilie Jauregui PA-C, and?I have reviewed the PA note.? History is as recorded. Exam is as recorded. Assessment/Plan are as recorded. ? Other additions or changes: None. ? Signature: Uir Steele MD Cardiovascular: +CAD, prior KS per patient, no data or evidence of MPI of 2013 +h/o CP, unclear etiology, stress test pending today +HTN, on rx, suboptimal control with med adjustments made 08/30/2019 +HLD statin compliant +PAD, s/p multiple interventions with aortoiliac disease Denies chest pain or sob. Denies hx of DVT/PE. 08/30/[address] Mednia ASSESSMENT/PLAN: 1. Preoperative cardiovascular examination - ICD9: V72.81, ICD10: Z01.810 (primary diagnosis) CVRI risk 3, Intermediate risk 2.2-5.6% risk. Will check echo and MPI Pharm stress to better risk stratify ? 2. Coronary artery disease involving wilton heart without angina pectoris, unspecified vessel or lesion type - ICD9: 414.01, ICD10: I25.10 Prior KS per patient but do not have data [...] Assessment/Plan CAD (coronary artery disease) Assessment: h/o KS per pt, pending MPI today ordered by [...] BP: 160/101 149/71 PVD (peripheral vascular disease) ([facility]) Assessment: s/p multiple interventions with aortoiliac disease COPD (chronic obstructive pulmonary disease) ([facility]) Assessment: severe, attempting to quit, Nicoderm [...] H/H, new labs pending Lupus anticoagulant disorder ([facility]) Assessment: currently on Coumadin, TE sent [...] 11, 2019 TIME: 11:52 AM PAGER/CONTACT #: [facility] HOSP 09-02-2019 [facility] Patient:Pedro Pablo Sierra MRN: Height:5' [...] RN and I am calling from the [facility] on behalf of your PCP, DAIJA [...] like to speak with a social work juice bar team member to help give you support [...] ([facility]): Leidy Francisco MIKE 10/07/2019 8:03 AM [...] Authorizing Provider: KALEB NGO (LAMIN) Kaleb Ngo APRN.CNP Normal [facility] Culture, urine Bacteria identified Cx Nom (U) Presumptive E. coli [facility] Work Phone: Lower GI hemoglobin IA Ql (S tl) Stool Occult Blood (LACI) Positive [facility] Work Phone: Vital Signs Date Time Vital Sign Value Performing Clinician Faci lity 01-23-2025 10:38-0400 Body temperature 98 [degF] Dr. Daija Morton MD Work Phone: [facility] 01-23-2025 10:38-0400 Diastolic blood pressure 60 mm[Hg] Dr. Daija Morton MD Work Phone: [facility] 01-23-2025 10:38-0400 Heart rate 66 /min Dr. Daija Morton MD Work Phone: [facility] 01-23-2025 10:38-0400 Respiratory rate 17 /min Dr. Daija Morton MD Work Phone: 1(385)060-612312 [place] [address] 01-23-2025 10:38-0400 SaO2% (BldA) [Mass fraction] 92 % Dr. Daija Morton MD Work Phone: 0(040)206-485412 [place] [address] 01-23-2025 10:38-0400 Systolic blood pressure 102 mm[Hg] Dr. Daija Morton MD Work Phone: 6(558)549-739012 [place] [address] 01-21-2025 09:04-0400 Body temperature 97.5 [degF] Dr. Daija Morton MD Work Phone: 9(697)782-467112 [place] [address] 01-21-2025 09:04-0400 Diastolic blood pressure 63 mm[Hg] Dr. Daija Morton MD Work Phone: 0(664)302-381012 [place] [address] 01-21-2025 09:04-0400 Heart rate 60 /min Dr. Daija Morton MD Work Phone: 2(751)275-997812 [place] [address] 01-21-2025 09:04-0400 Respiratory rate 18 /min Dr. Daija Morton MD Work Phone: 0(311)605-474012 [place] [address] 01-21-2025 09:04-0400 Systolic blood pressure 100 mm[Hg] Dr. Daija Morton MD Work Phone: 0(900)497-978412 [place] [address] 01-08-2025 19:50-0400 Body temperature 97.5 [degF] Dr. Daija Morton MD Work Phone: 7(654)388-324412 [place] [address] 01-08-2025 19:50-0400 Diastolic blood pressure 63 mm[Hg] Dr. Daija Morton MD Work Phone: 7(346)150-493412 [place] [address] 01-08-2025 19:50-0400 Heart rate 82 /min Dr. Daija Morton MD Work Phone: 9(947)248-694312 [place] [address] 01-08-2025 19:50-0400 Inhaled oxygen flow rate 2 L/min Dr. Daija Morton MD Work Phone: 9(224)517-242512 [place] [address] 01-08-2025 19:50-0400 Respiratory rate 18 /min Dr. Daija Morton MD Work Phone: 9(476)104-472212 [place] [address] 01-08-2025 19:50-0400 SaO2% (BldA) [Mass fraction] 96 % Dr. Daija Morton MD Work Phone: 1(941)035-173512 [place] [address] 01-08-2025 19:50-0400 Systolic blood pressure 133 mm[Hg] Dr. Daija Morton MD Work Phone: 1(024)675-350712 [place] [address] 01-08-2025 19:10-0400 Heart rate 80 /min Dr. Daija Morton MD Work Phone: 0(195)539-098012 [place] [address] 01-08-2025 19:10-0400 Respiratory rate 24 /min Dr. Daija Morton MD Work Phone: 5(517)371-227712 [place] [address] 01-08-2025 19:10-0400 SaO2% (BldA) [Mass fraction] 91 % Dr. Daija Morton MD Work Phone: 2(785)254-954612 [place] [address] 01-08-2025 16:07-0400 Body temperature 97.7 [degF] Dr. Daija Morton MD Work Phone: 6(020)543-231912 [place] [address] 01-08-2025 16:07-0400 Diastolic blood pressure 56 mm[Hg] Dr. Daija Morton MD Work Phone: 6(233)332-958612 [place] [address] 01-08-2025 16:07-0400 Inhaled oxygen flow rate 2 L/min Dr. Daija Morton MD Work Phone: 0(072)314-395712 [place] [address] 01-08-2025 16:07-0400 Systolic blood pressure 112 mm[Hg] Dr. Daija Morton MD Work Phone: 0(910)539-381512 [place] [address] 01-08-2025 03:12-0400 Body mass index (BMI) [Ratio] 19.8 kg/m2 Dr. Daija Morton MD Work Phone: 3(474)827-648412 [place] [address] 01-08-2025 03:12-0400 Body weight 66.[address] Daija Morton MD Work Phone: 3(782)088-124412 [place] [address] 01-07-2025 09:26-0400 Body height 182.[address] Daija Morton MD Work Phone: 2(288)338-121012 [place] [address] 01-06-2025 15:50-0400 Inhaled oxygen concentration 35 % Dr. Daija Morton MD Work Phone: 3(455)907-708512 [place] [address] 01-05-2025 14:00-0400 Body temperature 98.1 [degF] Dr. Daija Morton MD Work Phone: 2(514)409-130412 [place] [address] 01-05-2025 14:00-0400 Diastolic blood pressure 80 mm[Hg] Dr. Daija Morton MD Work Phone: 2(939)390-501312 [place] [address] 01-05-2025 14:00-0400 Heart rate 71 /min Dr. Daija Morton MD Work Phone: 3(356)238-353312 [place] [address] 01-05-2025 14:00-0400 Respiratory rate 34 /min Dr. Daija Morton MD Work Phone: 6(909)031-333912 [place] [address] 01-05-2025 14:00-0400 SaO2% (BldA) [Mass fraction] 93 % Dr. Daija Morton MD Work Phone: 1(097)570-559012 [place] [address] 01-05-2025 14:00-0400 Systolic blood pressure 157 mm[Hg] Dr. Daija Morton MD Work Phone: 8(478)653-007812 [place] [address] 01-05-2025 13:33-0400 Inhaled oxygen concentration 35 % Dr. Daija Morton MD Work Phone: 4(120)665-210712 [place] [address] 01-05-2025 13:33-0400 Inhaled oxygen flow rate 10 L/min Dr. Daija Morton MD Work Phone: 9(477)703-543512 [place] [address] 01-05-2025 09:38-0400 Body height 182.[address] Daija Morton MD Work Phone: 5(225)283-535612 [place] [address] 01-05-2025 09:38-0400 Body mass index (BMI) [Ratio] 22.5 kg/m2 Dr. Daija Morton MD Work Phone: 4(697)575-277012 [place] [address] 01-05-2025 09:38-0400 Body weight 75.[address] Daija Morton MD Work Phone: 6(892)186-317312 [place] [address] 01-03-2025 10:00-0400 Diastolic blood pressure 73 mm[Hg] Dr. Daija Morton MD Work Phone: 5(685)700-175212 [place] [address] 01-03-2025 10:00-0400 Heart rate 53 /min Dr. Daija Morton MD Work Phone: 4(079)136-085212 [place] [address] 01-03-2025 10:00-0400 Respiratory rate 16 /min Dr. Daija Morton MD Work Phone: 2(707)197-383412 [place] [address] 01-03-2025 10:00-0400 SaO2% (BldA) [Mass fraction] 99 % Dr. Daija Morton MD Work Phone: 3(745)278-999512 [place] [address] 01-03-2025 10:00-0400 Systolic blood pressure 174 mm[Hg] Dr. Daija Morton MD Work Phone: 8(997)391-841512 [place] [address] 01-03-2025 08:17-0400 Body temperature 97.6 [degF] Dr. Daija Morton MD Work Phone: 3(260)957-151012 [place] [address] 01-03-2025 06:27-0400 Body height 182.[address] Daija Morton MD Work Phone: 5(477)605-302512 [place] [address] 01-03-2025 06:27-0400 Body mass index (BMI) [Ratio] 20.4 kg/m2 Dr. Daija Morton MD Work Phone: 3(427)603-726912 [place] [address] 01-03-2025 06:27-0400 Body weight 68.[address] Daija Morton MD Work Phone: 6(178)158-769312 [place] [address] 12-26-2024 18:05-0400 Diastolic blood pressure 72 mm[Hg] Dr. Daija Morton MD Work Phone: 0(406)233-413312 [place] [address] 12-26-2024 18:05-0400 Heart rate 74 /min Dr. Daija Morton MD Work Phone: 6(854)951-332012 [place] [address] 12-26-2024 18:05-0400 Systolic blood pressure 162 mm[Hg] Dr. Daija Morton MD Work Phone: 1(879)996-648312 [place] [address] 12-26-2024 14:27-0400 Body temperature 97.9 [degF] Dr. Daija Morton MD Work Phone: 0(251)404-378512 [place] [address] 12-26-2024 14:27-0400 Inhaled oxygen flow rate 2 L/min Dr. Daija Morton MD Work Phone: 2(485)659-788612 [place] [address] 12-26-2024 14:27-0400 Respiratory rate 18 /min Dr. Daija Morton MD Work Phone: 8(081)232-459412 [place] [address] 12-26-2024 14:27-0400 SaO2% (BldA) [Mass fraction] 96 % Dr. Daija Morton MD Work Phone: 6(133)617-244812 [place] [address] 12-26-2024 04:00-0400 Body mass index (BMI) [Ratio] 24.5 kg/m2 Dr. Daija Morton MD Work Phone: 3(982)111-930512 [place] [address] 12-25-2024 11:12-0400 Body height 172.[address] Daija Morton MD Work Phone: 8(494)394-665812 [place] [address] 12-25-2024 11:12-0400 Body weight [address] Daija Morton MD Work Phone: 4(164)440-574112 [place] [address] 12-17-2024 18:14-0400 Body temperature 98.5 [degF] Dr. Daija Morton MD Work Phone: 3(075)380-859212 [place] [address] 12-17-2024 18:14-0400 Diastolic blood pressure 91 mm[Hg] Dr. Daija Morton MD Work Phone: 7(677)554-699012 [place] [address] 12-17-2024 18:14-0400 Heart rate 64 /min Dr. Daija Morton MD Work Phone: 6(746)045-042112 [place] [address] 12-17-2024 18:14-0400 Respiratory rate 16 /min Dr. Daija Morton MD Work Phone: 7(581)131-610912 [place] [address] 12-17-2024 18:14-0400 SaO2% (BldA) [Mass fraction] 99 % Dr. Daija Morton MD Work Phone: 9(391)208-776012 [place] [address] 12-17-2024 18:14-0400 Systolic blood pressure 197 mm[Hg] Dr. Daija Morton MD Work Phone: 4(080)701-566312 [place] [address] 12-17-2024 18:00-0400 Inhaled oxygen flow rate 2 L/min Dr. Daija Morton MD Work Phone: 8(870)354-605612 [place] [address] 12-17-2024 16:21-0400 Body height 172.[address] Daija Morton MD Work Phone: 3(997)436-908512 [place] [address] 12-17-2024 16:21-0400 Body mass index (BMI) [Ratio] 24.5 kg/m2 Dr. Daija Morton MD Work Phone: 9(676)169-407212 [place] [address] 12-17-2024 16:21-0400 Body weight [address] Daija Morton MD Work Phone: 3(109)355-972612 [place] [address] 12-16-2024 20:45-0400 Heart rate 76 /min Dr. Daija Morton MD Work Phone: 5(713)803-759812 [place] [address] 12-16-2024 20:45-0400 Respiratory rate 20 /min Dr. Daija Morton MD Work Phone: 6(155)703-067812 [place] [address] 12-16-2024 19:55-0400 Body temperature 98 [degF] Dr. Daija Mroton MD Work Phone: 6(903)637-290312 [place] [address] 12-16-2024 19:55-0400 Diastolic blood pressure 72 mm[Hg] Dr. Daija Morton MD Work Phone: 5(311)935-338412 [place] [address] 12-16-2024 19:55-0400 Inhaled oxygen flow rate 2 L/min Dr. Daija Morton MD Work Phone: 9(033)923-412212 [place] [address] 12-16-2024 19:55-0400 SaO2% (BldA) [Mass fraction] 94 % Dr. aDija Morton MD Work Phone: 8(199)312-714012 [place] [address] 12-16-2024 19:55-0400 Systolic blood pressure 160 mm[Hg] Dr. Daija Morton MD Work Phone: 2(946)115-007212 [place] [address] 12-16-2024 03:13-0400 Body mass index (BMI) [Ratio] 23.4 kg/m2 Dr. Daija Morton MD Work Phone: 0(990)780-991112 [place] [address] 12-16-2024 03:13-0400 Body weight 70.[address] Daija Morton MD Work Phone: 4(594)069-877812 [place] [address] 12-14-2024 13:01-0400 Body height 172.[address] Daija Morton MD Work Phone: 1(220)766-616112 [place] [address] 12-13-2024 20:55-0400 Body temperature 98.3 [degF] Dr. Daija Morton MD Work Phone: 2(874)511-169712 [place] [address] 12-13-2024 20:55-0400 Diastolic blood pressure 73 mm[Hg] Dr. Daija Morton MD Work Phone: 4(572)898-477612 [place] [address] 12-13-2024 20:55-0400 Heart rate 65 /min Dr. Daija Morton MD Work Phone: 8(907)905-583412 [place] [address] 12-13-2024 20:55-0400 Respiratory rate 26 /min Dr. Daija Morton MD Work Phone: 4(875)082-594012 [place] [address] 12-13-2024 20:55-0400 SaO2% (BldA) [Mass fraction] 98 % Dr. Daija Morton MD Work Phone: 2(817)536-129712 [place] [address] 12-13-2024 20:55-0400 Systolic blood pressure 191 mm[Hg] Dr. Daija Morton MD Work Phone: 9(225)973-342712 [place] [address] 12-13-2024 18:10-0400 Inhaled oxygen flow rate 3.5 L/min Dr. Daija Morton MD Work Phone: 7(805)385-575512 [place] [address] 12-13-2024 17:46-0400 Body height 172.[address] Daija Morton MD Work Phone: [facility] 12-13-2024 17:46-0400 Body mass index (BMI) [Ratio] 24.3 kg/m2 Dr. Daija Morton MD Work Phone: [facility] 12-13-2024 17:46-0400 Body weight 72.[address] Daija Morton MD Work Phone: [facility] 12-12-2024 13:57-0400 Body mass index (BMI) [Ratio] 24.05 kg/m2 Anjel Older NATURAL GAS PLANT SUPERVISOR.FIELD DIRECTOR Work Phone: [facility] 12-12-2024 13:57-0400 Body weight 71.76 kg Anjel Older NATURAL GAS PLANT SUPERVISOR.FIELD DIRECTOR Work Phone: [facility] 12-12-2024 13:57-0400 Diastolic blood pressure 83 mm[Hg] Anjel Older NATURAL GAS PLANT SUPERVISOR.FIELD DIRECTOR Work Phone: [facility] 12-12-2024 13:57-0400 Heart rate 65 /min Anjel Older NATURAL GAS PLANT SUPERVISOR.FIELD DIRECTOR Work Phone: [facility] 12-12-2024 13:57-0400 Respiratory rate 20 /min Anjel Older NATURAL GAS PLANT SUPERVISOR.FIELD DIRECTOR Work Phone: [facility] 12-12-2024 13:57-0400 SaO2% (BldA) [Mass fraction] 94 % Anjel Older NATURAL GAS PLANT SUPERVISOR.FIELD DIRECTOR Work Phone: [facility] 12-12-2024 13:57-0400 Systolic blood pressure 185 mm[Hg] Anjel Older NATURAL GAS PLANT SUPERVISOR.FIELD DIRECTOR Work Phone: [facility] 09-02-2024 20:48-0400 Heart rate 62 /min Dr. Daija Morton MD Work Phone: [facility] 09-02-2024 19:34-0400 Body temperature 97.5 [degF] Dr. Daija Morton MD Work Phone: [facility] 09-02-2024 19:34-0400 Diastolic blood pressure 77 mm[Hg] Dr. Daija Morton MD Work Phone: 1(575)445-674212 [place] [address] 09-02-2024 19:34-0400 Respiratory rate 16 /min Dr. Daija Morton MD Work Phone: 5(460)383-868612 [place] [address] 09-02-2024 19:34-0400 SaO2% (BldA) [Mass fraction] 92 % Dr. Daija Morton MD Work Phone: 3(216)313-308412 [place] [address] 09-02-2024 19:34-0400 Systolic blood pressure 146 mm[Hg] Dr. Daija Morton MD Work Phone: 1(631)183-519312 [place] [address] 09-02-2024 10:22-0400 Body height 172.[address] Daija Morton MD Work Phone: 5(927)875-495712 [place] [address] 09-02-2024 10:22-0400 Body weight 68.[address] Daija Morton MD Work Phone: 4(894)518-592812 [place] [address] 09-02-2024 06:00-0400 Body mass index (BMI) [Ratio] 22.8 kg/m2 Dr. Daija Morton MD Work Phone: 8(798)049-162812 [place] [address] 09-01-2024 22:41-0400 Inhaled oxygen flow rate 2 L/min Dr. Daija Morton MD Work Phone: 4(465)831-336712 [place] [address] 08-25-2024 18:11-0400 Diastolic blood pressure 90 mm[Hg] Dr. Daija Morton MD Work Phone: 5(018)704-762812 [place] [address] 08-25-2024 18:11-0400 Heart rate 66 /min Dr. Daija Morton MD Work Phone: 8(425)428-255812 [place] [address] 08-25-2024 18:11-0400 Respiratory rate 24 /min Dr. Daija Morton MD Work Phone: 9(549)070-724012 [place] [address] 08-25-2024 18:11-0400 SaO2% (BldA) [Mass fraction] 93 % Dr. Daija Morton MD Work Phone: 4(129)944-248312 [place] [address] 08-25-2024 18:11-0400 Systolic blood pressure 197 mm[Hg] Dr. Daija Morton MD Work Phone: [facility] [facility] 08-25-2024 16:12-0400 Body height 165.[address] Daija Morton MD Work Phone: [facility] 08-25-2024 16:12-0400 Body temperature 97.7 [degF] Dr. Daija Morton MD Work Phone: [facility] 03-23-2024 13:19-0400 Diastolic blood pressure 98 mm[Hg] Pura Praisler-Wood [employer] SUPERVISOR.FIELD DIRECTOR Work Phone: [facility] 03-23-2024 13:19-0400 Systolic blood pressure 230 mm[Hg] Pura Praisler-Wood [employer] SUPERVISOR.FIELD DIRECTOR Work Phone: [facility] 03-23-2024 13:12-0400 Body mass index (BMI) [Ratio] 20.92 kg/m2 Pura Praisler-Wood [employer] SUPERVISOR.FIELD DIRECTOR Work Phone: [facility] 03-23-2024 13:12-0400 Body temperature 96.91 [degF] Pura Praisler-Wood [employer] SUPERVISOR.FIELD DIRECTOR Work Phone: [facility] 03-23-2024 13:12-0400 Body weight 62.4 kg Pura Praisler-Wood [employer] SUPERVISOR.FIELD DIRECTOR Work Phone: [facility] 03-23-2024 13:12-0400 Heart rate 74 /min Pura Praisler-Wood [employer] SUPERVISOR.FIELD DIRECTOR Work Phone: [facility] 03-23-2024 13:12-0400 Respiratory rate 16 /min Pura Praisler-Wood [employer] SUPERVISOR.FIELD DIRECTOR Work Phone: [facility] 11-21-2023 12:49-0400 Diastolic blood pressure 94 mm[Hg] Rebekah Bogner PA-C Work Phone: [facility] 11-21-2023 12:49-0400 Systolic blood pressure 200 mm[Hg] Rebekah Bogner PA-C Work Phone: [facility] 11-21-2023 12:42-0400 Body mass index (BMI) [Ratio] 22.96 kg/m2 Rebekah Bogner PA-C Work Phone: [facility] 11-21-2023 12:42-0400 Body weight 68.49 kg Rebekah Bogner PA-C Work Phone: [facility] 11-21-2023 12:42-0400 Heart rate 60 /min Rebekah Bogner PA-C Work Phone: [facility] 11-21-2023 12:42-0400 Respiratory rate 16 /min Rebekah Bogner PA-C Work Phone: [facility] 11-21-2023 12:42-0400 SaO2% (BldA) [Mass fraction] 92 % Rebekah Bogner PA-C Work Phone: [facility] 08-02-2023 19:35-0500 Inhaled oxygen flow rate 2 L/min Dr. Daija Morton Work Phone: [facility] 08-02-2023 19:27-0500 Body temperature 97.9 [degF] Dr. Daija Morton Work Phone: [facility] 08-02-2023 19:27-0500 Diastolic blood pressure 59 mm[Hg] Dr. Daija Morton Work Phone: [facility] 08-02-2023 19:27-0500 Heart rate 98 /min Dr. Daija Morton Work Phone: [facility] 08-02-2023 19:27-0500 Respiratory rate 16 /min Dr. Daija Morton Work Phone: [facility] 08-02-2023 19:27-0500 SaO2% (BldA) [Mass fraction] 93 % Dr. Daija Morton Work Phone: [facility] 08-02-2023 19:27-0500 Systolic blood pressure 149 mm[Hg] Dr. Daija Morton Work Phone: 8(470)026-317112 [place] [address] 07-31-2023 10:17-0500 Body height 172.[address] Daija Morton Work Phone: 3(138)444-814012 [place] [address] 07-31-2023 10:17-0500 Body weight 67.[address] Daija Morton Work Phone: 9(142)838-602512 [place] [address] 07-31-2023 00:57-0500 Body mass index (BMI) [Ratio] 22.4 kg/m2 Dr. Daija Morton Work Phone: 7(346)029-940212 [place] [address] 07-31-2023 00:05-0500 Body temperature 99 [degF] Dr. Daija Morton Work Phone: 3(852)899-805212 [place] [address] 07-31-2023 00:05-0500 Diastolic blood pressure 107 mm[Hg] Dr. Daija Morton Work Phone: 7(127)835-138412 [place] [address] 07-31-2023 00:05-0500 Heart rate 107 /min Dr. Daija Morton Work Phone: 1(870)672-015412 [place] [address] 07-31-2023 00:05-0500 Respiratory rate 30 /min Dr. Daija Morton Work Phone: 3(793)490-502712 [place] [address] 07-31-2023 00:05-0500 SaO2% (BldA) [Mass fraction] 98 % Dr. Daija Morton Work Phone: 1(839)843-738012 [place] [address] 07-31-2023 00:05-0500 Systolic blood pressure 173 mm[Hg] Dr. Daija Morton Work Phone: 1(354)261-465912 [place] [address] 07-30-2023 23:25-0500 Inhaled oxygen flow rate 3 L/min Dr. Daija Morton Work Phone: 4(600)313-264812 [place] [address] 07-30-2023 20:30-0500 Body height 172.[address] Daija Morton Work Phone: 8(994)021-410012 [place] [address] 07-30-2023 20:30-0500 Body mass index (BMI) [Ratio] 24.2 kg/m2 Dr. Daija Morton Work Phone: 7(308)282-944212 [place] [address] 07-30-2023 20:30-0500 Body weight 72.[address] Daija Morton Work Phone: 7(335)299-925612 [place] [address] 07-26-2023 12:10-0500 Diastolic blood pressure 59 mm[Hg] Dr. Daija Morton Work Phone: 1(577)070-870412 [place] [address] 07-26-2023 12:10-0500 Heart rate 67 /min Dr. Daija Morton Work Phone: 8(923)271-295912 [place] [address] 07-26-2023 12:10-0500 Respiratory rate 18 /min Dr. Daija Morton Work Phone: 7(312)231-518512 [place] [address] 07-26-2023 12:10-0500 SaO2% (BldA) [Mass fraction] 90 % Dr. Daija Morton Work Phone: 3(707)459-230312 [place] [address] 07-26-2023 12:10-0500 Systolic blood pressure 107 mm[Hg] Dr. Daija Morton Work Phone: 2(366)209-159512 [place] [address] 07-26-2023 08:38-0500 Body temperature 97.8 [degF] Dr. Daija Morton Work Phone: 7(474)144-247912 [place] [address] 07-26-2023 06:59-0500 Inhaled oxygen flow rate 2 L/min Dr. Daija Morton Work Phone: 7(103)089-042712 [place] [address] 07-25-2023 16:00-0500 Body weight 51.[address] Daija Morton Work Phone: 3(899)683-809812 [place] [address] 07-24-2023 21:55-0500 Body mass index (BMI) [Ratio] 17.4 kg/m2 Dr. Daija Morton Work Phone: 2(729)489-150112 [place] [address] 07-24-2023 21:13-0500 Diastolic blood pressure 89 mm[Hg] Dr. Daija Morton Work Phone: 5(589)176-337112 [place] [address] 07-24-2023 21:13-0500 Heart rate 65 /min Dr. Daija Morton Work Phone: 8(637)995-380512 [place] [address] 07-24-2023 21:13-0500 Respiratory rate 16 /min Dr. Daija Morton Work Phone: 2(763)040-406312 [place] [address] 07-24-2023 21:13-0500 SaO2% (BldA) [Mass fraction] 91 % Dr. Daija Morton Work Phone: 3(104)830-925712 [place] [address] 07-24-2023 21:13-0500 Systolic blood pressure 210 mm[Hg] Dr. Daija Morton Work Phone: 6(518)289-664212 [place] [address] 07-24-2023 17:27-0500 Body mass index (BMI) [Ratio] 22.8 kg/m2 Dr. Daija Morton Work Phone: 8(604)576-536812 [place] [address] 07-24-2023 17:27-0500 Body weight [address] Daija Morton Work Phone: 0(997)195-974012 [place] [address] 07-24-2023 16:44-0500 Body height 172.[address] Daija Morton Work Phone: 3(827)639-606312 [place] [address] 07-24-2023 16:44-0500 Body temperature 96.7 [degF] Dr. Daija Morton Work Phone: 2(691)420-611412 [place] [address] 04-04-2023 11:37-0400 Diastolic blood pressure 79 mm[Hg] Dr. Daija Morton Work Phone: 6(922)584-659612 [place] [address] 04-04-2023 11:37-0400 Heart rate 44 /min Dr. Daija Morton Work Phone: 5(957)757-382012 [place] [address] 04-04-2023 11:37-0400 Systolic blood pressure 188 mm[Hg] Dr. Daija oMrton Work Phone: 8(573)645-123612 [place] [address] 04-04-2023 10:02-0400 Body temperature 97.6 [degF] Dr. Daija Morton Work Phone: 3(355)084-483212 [place] [address] 04-04-2023 10:02-0400 Respiratory rate 18 /min Dr. Daija Morton Work Phone: 9(884)378-499212 [place] [address] 04-04-2023 10:02-0400 SaO2% (BldA) [Mass fraction] 92 % Dr. Daija Morton Work Phone: 0(006)807-717612 [place] [address] 04-03-2023 15:53-0400 Inhaled oxygen flow rate 2 L/min Dr. Daija Morton Work Phone: 4(112)928-837512 [place] [address] 03-31-2023 14:20-0400 Body mass index (BMI) [Ratio] 20.5 kg/m2 Dr. Daija Morton Work Phone: 7(283)124-885712 [place] [address] 03-31-2023 14:20-0400 Body weight [address] Daija Morton Work Phone: 6(248)934-340612 [place] [address] 03-31-2023 09:57-0400 Body height 175.[address] Daija Morton Work Phone: 6(850)060-780212 [place] [address] 03-30-2023 20:26-0400 Body temperature 96.7 [degF] Dr. Daija oMrton Work Phone: 4(302)602-595312 [place] [address] 03-30-2023 20:26-0400 Diastolic blood pressure 78 mm[Hg] Dr. Daija Morton Work Phone: 3(821)771-697712 [place] [address] 03-30-2023 20:26-0400 Heart rate 71 /min Dr. Daija Morton Work Phone: 2(326)137-733312 [place] [address] 03-30-2023 20:26-0400 Respiratory rate 18 /min Dr. Daija Morton Work Phone: 5(319)952-612412 [place] [address] 03-30-2023 20:26-0400 SaO2% (BldA) [Mass fraction] 97 % Dr. Daija Morton Work Phone: 0(588)544-429412 [place] [address] 03-30-2023 20:26-0400 Systolic blood pressure 181 mm[Hg] Dr. Daija Morton Work Phone: 1(117)883-791112 [place] [address] 03-30-2023 14:10-0400 Body height 172.[address] Daija Morton Work Phone: 6(647)364-721312 [place] [address] 03-29-2023 19:22-0400 Body mass index (BMI) [Ratio] 21.9 kg/m2 Dr. Daija Morton Work Phone: 1(439)380-723612 [place] [address] 03-29-2023 19:22-0400 Body weight 65.[address] Daija Morton Work Phone: 8(056)672-560012 [place] [address] 03-29-2023 19:20-0400 Diastolic blood pressure 80 mm[Hg] Dr. Daija Morton Work Phone: 6(795)286-602912 [place] [address] 03-29-2023 19:20-0400 Heart rate 84 /min Dr. Daija Morton Work Phone: 1(121)612-897512 [place] [address] 03-29-2023 19:20-0400 Respiratory rate 18 /min Dr. Daija Morton Work Phone: 0(972)445-283912 [place] [address] 03-29-2023 19:20-0400 SaO2% (BldA) [Mass fraction] 92 % Dr. Daija Morton Work Phone: 7(268)433-638812 [place] [address] 03-29-2023 19:20-0400 Systolic blood pressure 195 mm[Hg] Dr. Daija Morton Work Phone: 0(051)149-476312 [place] [address] 03-29-2023 18:17-0400 Body temperature 97.6 [degF] Dr. Daija Morton Work Phone: 1(157)707-839112 [place] [address] 02-25-2023 19:41-0400 Diastolic blood pressure 87 mm[Hg] Dr. Daija Morton Work Phone: 3(401)020-954512 [place] [address] 02-25-2023 19:41-0400 Heart rate 67 /min Dr. Daija Morton Work Phone: 8(820)872-080712 [place] [address] 02-25-2023 19:41-0400 Respiratory rate 15 /min Dr. Daija Morton Work Phone: 2(304)789-783612 [place] [address] 02-25-2023 19:41-0400 SaO2% (BldA) [Mass fraction] 97 % Dr. Daija Morton Work Phone: 0(943)263-684912 [place] [address] 02-25-2023 19:41-0400 Systolic blood pressure 193 mm[Hg] [...] [facility] 02-18-2023 01:56-0400 Heart rate 88 /min [facility] 02-18-2023 01:56-0400 Respiratory rate 16 /min [facility] 02-18-2023 01:56-0400 Systolic blood pressure 157 mm[Hg] [facility] 02-18-2023 01:00-0400 SaO2% (BldA) [Mass fraction] 98 % [facility] 02-17-2023 21:35-0400 Body mass index (BMI) [Ratio] 21.5 kg/m2 [facility] 02-17-2023 21:35-0400 Body weight 66.13 kg [facility] 02-17-2023 21:32-0400 Body height 175.26 cm [facility] 02-17-2023 21:32-0400 Body temperature 96.4 [degF] [facility] 12-31-2022 15:16-0400 Body height 173 cm [facility] 12-31-2022 15:16-0400 Body mass index (BMI) [Ratio] 21.7 kg/m2 [facility] 12-31-2022 15:16-0400 Body temperature 96.6 [degF] [facility] 12-31-2022 15:16-0400 Body weight 65.2 kg [facility] 12-31-2022 15:16-0400 Diastolic blood pressure 66 mm[Hg] [facility] 12-31-2022 15:16-0400 Heart rate 75 /min [facility] 12-31-2022 15:16-0400 Respiratory rate 15 /min [facility] 12-31-2022 15:16-0400 SaO2% (BldA) [Mass fraction] 93 % [facility] 12-31-2022 15:16-0400 Systolic blood pressure 118 mm[Hg] [facility] 12-26-2022 14:04-0400 Diastolic blood pressure 90 mm[Hg] Ryan May MD Work Phone: [facility] 12-26-2022 14:04-0400 Heart rate 50 /min Ryan May MD Work Phone: [facility] 12-26-2022 14:04-0400 Systolic blood pressure 207 mm[Hg] Ryan May MD Work Phone: [facility] 10-22-2022 21:40-0400 Diastolic Blood Pressure Non-Invasive [address] PRIYANKA FRANCO MD [facility] 10-22-2022 21:40-0400 Heart rate 88 /min DR PRIYANKA FRANCO MD [facility] 10-22-2022 21:40-0400 Respiratory rate 20 /min DR PRIYANKA FRANCO MD [facility] 10-22-2022 21:40-0400 Systolic Blood Pressure Non-Invasive [address] PRIYANKA FRANCO MD [facility] 10-22-2022 19:59-[address] PRIYANKA FRANCO MD [facility] 10-22-2022 19:59-0400 Body temperature 98.6 [degF] DR PRIYANKA FRANCO MD [facility] 10-22-2022 19:59-0400 Diastolic Blood Pressure Non-Invasive [address] PRIYANKA FRANCO MD [facility] 10-22-2022 19:59-0400 Heart rate 97 /min DR PRIYANKA FRANCO MD [facility] 10-22-2022 19:59-0400 Respiratory rate 21 /min DR PRIYANKA FRANCO MD [facility] 10-22-2022 19:59-0400 Systolic Blood Pressure Non-Invasive [address] PRIYANKA FRANCO MD [facility] 10-21-2022 18:30-0400 Body height 172.72 cm [facility] 10-21-2022 18:30-0400 Body temperature 97.5 [degF] [facility] 10-21-2022 18:30-0400 Diastolic blood pressure 88 mm[Hg] [facility] 10-21-2022 18:30-0400 Heart rate 99 /min [facility] 10-21-2022 18:30-0400 Respiratory rate 16 /min [facility] 10-21-2022 18:30-0400 SaO2% (BldA) [Mass fraction] 96 % [facility] 10-21-2022 18:30-0400 Systolic blood pressure 168 mm[Hg] [facility] 08-27-2022 10:51-0500 Diastolic blood pressure 91 mm[Hg] Daija Morton MD Work Phone: [facility] 08-27-2022 10:51-0500 Heart rate 69 /min Daija Morton MD Work Phone: [facility] 08-27-2022 10:51-0500 Systolic blood pressure 212 mm[Hg] Daija Morton MD Work Phone: [facility] 08-27-2022 10:47-0500 Body temperature 97 [degF] Daija Morton MD Work Phone: [facility] 08-27-2022 10:47-0500 Body weight 71.22 kg Daija Morton MD Work Phone: [facility] 08-27-2022 10:47-0500 Respiratory rate 28 /min Daija Morton MD Work Phone: [facility] 08-27-2022 10:47-0500 SaO2% (BldA) [Mass fraction] 95 % Daija Morton MD Work Phone: [facility] 03-10-2022 10:10-0400 Diastolic blood pressure 90 mm[Hg] Anjel Older [employer] SUPERVISOR.FIELD DIRECTOR Work Phone: [facility] 03-10-2022 10:10-0400 Heart rate 88 /min Anjel Older [employer] SUPERVISOR.FIELD DIRECTOR Work Phone: [facility] 03-10-2022 10:10-0400 Respiratory rate 16 /min Anjel Older [employer]ANT SUPERVISOR.FIELD DIRECTOR Work Phone: [facility] 03-10-2022 10:10-0400 Systolic blood pressure 158 mm[Hg] Anjel Older [employer] SUPERVISOR.FIELD DIRECTOR Work Phone: [facility] 03-08-2022 23:13-0400 Diastolic blood pressure 93 [...] 172.7 cm Ryan May MD Work Phone: [facility] 01-31-2022 13:59-0400 Body weight 68.49 kg Ryan May MD Work Phone: [facility] 01-31-2022 13:59-0400 Diastolic blood pressure 99 mm[Hg] Ryan May MD Work Phone: [facility] 01-31-2022 13:59-0400 Systolic blood pressure 168 mm[Hg] Ryan May MD Work Phone: [facility] 01-28-2022 15:53-0400 Diastolic blood pressure 88 [...] Diastolic blood pressure 92 mm[Hg] Anjel Older [employer] SUPERVISOR.FIELD DIRECTOR Work Phone: [facility] 01-28-2022 11:41-0400 Heart rate 56 /min Anjel Older [employer] SUPERVISOR.FIELD DIRECTOR Work Phone: [facility] 01-28-2022 11:41-0400 Systolic blood pressure 200 mm[Hg] Anjel Older [employer] SUPERVISOR.FIELD DIRECTOR Work Phone: [facility] 01-28-2022 10:57-0400 Body weight 68.49 kg Anjel Older [employer] SUPERVISOR.FIELD DIRECTOR Work Phone: [facility] 01-28-2022 10:57-0400 Respiratory rate 16 /min Anjel Braga [employer] SUPERVISOR.FIELD DIRECTOR Work Phone: [facility] 01-20-2022 13:23-0400 Diastolic blood pressure 102 mm[Hg] Ye Coello MD Work Phone: [facility] 01-20-2022 13:23-0400 Heart rate 61 /min Ye Coello MD Work Phone: [facility] 01-20-2022 13:23-0400 SaO2% (BldA) [Mass fraction] 94 % Ye Coello MD Work Phone: [facility] 01-20-2022 13:23-0400 Systolic blood pressure 172 mm[Hg] Ye Coello MD Work Phone: [facility] 01-14-2022 10:26-0400 Body temperature 98.2 [degF] Harriett Albert [employer] SUPERVISOR.REFINERY OPERATOR COKING Work Phone: [facility] 01-14-2022 10:26-0400 Body weight 69.67 kg Harriett Albert [employer]ANT SUPERVISOR.REFINERY OPERATOR COKING Work Phone: [facility] 01-14-2022 10:26-0400 Diastolic blood pressure 80 mm[Hg] Harriett Albert [employer] SUPERVISOR.REFINERY OPERATOR COKING Work Phone: [facility] 01-14-2022 10:26-0400 Heart rate 78 /min Harriett Albert [employer]ANT SUPERVISOR.REFINERY OPERATOR COKING Work Phone: [facility] 01-14-2022 10:26-0400 Respiratory rate 16 /min Harriett Albert NAT[employer] G[employer]ANT SUPERVISOR.REFINERY OPERATOR COKING Work Phone: [facility] 01-14-2022 10:26-0400 SaO2% (BldA) [Mass fraction] 95 % Harriett Albert [employer] G[employer]ANT SUPERVISOR.REFINERY OPERATOR COKING Work Phone: [facility] 01-14-2022 10:26-0400 Systolic blood pressure 186 mm[Hg] Harriett Albert [employer]ANT SUPERVISOR.REFINERY OPERATOR COKING Work Phone: [facility] 11-30-2021 15:02-0400 Heart rate 75 /min [...] Phone: 11-16-2021 14:37-0400 Body height 172.7 cm Estephaniajuice Pierre [employer] SUPERVISOR.FIELD DIRECTOR Work Phone: [facility] 11-16-2021 14:37-0400 Body weight 71.67 kg Estephania Ignacio [employer]ANT SUPERVISOR.FIELD DIRECTOR Work Phone: [facility] 11-16-2021 14:37-0400 Diastolic blood pressure 68 mm[Hg] Estephania Pierre [employer]ANT SUPERVISOR.FIELD DIRECTOR Work Phone: [facility] 11-16-2021 14:37-0400 Heart rate 64 /min Estephaniajuice Pierre [employer]ANT SUPERVISOR.FIELD DIRECTOR Work Phone: [facility] 11-16-2021 14:37-0400 SaO2% (BldA) [Mass fraction] 100 % Estephaniajuice Pierre [employer]ANT SUPERVISOR.FIELD DIRECTOR Work Phone: [facility] 11-16-2021 14:37-0400 Systolic blood pressure 162 mm[Hg] Estephaniajuice Pierre NATURAL G[employer] PLANT SUPERVISOR.FIELD DIRECTOR Work Phone: [facility] 11-08-2021 12:50-0400 Heart rate 73 /min Respiratory Wstr Work Phone: [facility] 11-08-2021 12:50-0400 Respiratory rate 14 /min Respiratory Wstr Work Phone: [facility] 11-08-2021 12:50-0400 SaO2% (BldA) [Mass fraction] 97 % Respiratory Wstr Work Phone: [facility] 11-05-2021 11:22-0400 Body weight 70.31 kg Emilie Shania PA-C Work Phone: [facility] 11-05-2021 11:22-0400 Diastolic blood pressure 68 mm[Hg] Emilie Shania PA-C Work Phone: [facility] 11-05-2021 11:22-0400 Heart rate 71 /min Emilie Shania PA-C Work Phone: [facility] 11-05-2021 11:22-0400 Respiratory rate 20 /min Emilie Shania PA-C Work Phone: [facility] 11-05-2021 11:22-0400 SaO2% (BldA) [Mass fraction] 99 % Emilie Shania PA-C Work Phone: [facility] 11-05-2021 11:22-0400 Systolic blood pressure 140 mm[Hg] Emilie Shania PA-C Work Phone: [facility] 10-21-2021 11:30-0400 Diastolic blood pressure 65 mm[Hg] Mi Nurse Work Phone: [facility] 10-21-2021 11:30-0400 Heart rate 81 /min Mi Nurse Work Phone: [facility] 10-21-2021 11:30-0400 Systolic blood pressure 155 mm[Hg] Mi Nurse Work Phone: [facility] 10-13-2021 13:00-0400 Body height 172.7 cm Ye Coello MD Work Phone: [facility] 10-13-2021 13:00-0400 Body weight 71.67 kg Ye Coello MD Work Phone: [facility] 10-13-2021 13:00-0400 Diastolic blood pressure 93 mm[Hg] Ye Coello MD Work Phone: [facility] 10-13-2021 13:00-0400 Heart rate 66 /min Ye Coello MD Work Phone: [facility] 10-13-2021 13:00-0400 Systolic blood pressure 217 mm[Hg] Ye Coello MD Work Phone: [facility] 10-08-2021 17:14-0400 Diastolic blood pressure 62 [...] 11:17-0400 Body temperature 97.59 [degF] Anjel Older [employer] SUPERVISOR.FIELD DIRECTOR Work Phone: [facility] 10-07-2021 11:17-0400 Body weight 70.31 kg Anjel Older NAT[employer]ANT SUPERVISOR.FIELD DIRECTOR Work Phone: [facility] 10-07-2021 11:17-0400 Diastolic blood pressure 90 mm[Hg] Anjel Older NAT[employer] G[employer]ANT SUPERVISOR.FIELD DIRECTOR Work Phone: [facility] 10-07-2021 11:17-0400 Heart rate 67 /min Anjel Older NAT[employer] G[employer]ANT SUPERVISOR.FIELD DIRECTOR Work Phone: [facility] 10-07-2021 11:17-0400 Respiratory rate 12 /min Anjel Older NAT[employer] G[employer]ANT SUPERVISOR.FIELD DIRECTOR Work Phone: [facility] 10-07-2021 11:17-0400 SaO2% (BldA) [Mass fraction] 96 % Anjel Older [employer]ANT SUPERVISOR.FIELD DIRECTOR Work Phone: [facility] 10-07-2021 11:17-0400 Systolic blood pressure 178 mm[Hg] Anjel Older NAT[employer] G[employer]ANT SUPERVISOR.FIELD DIRECTOR Work Phone: [facility] 09-29-2021 16:20-0400 Body temperature 98.24 [degF] DR PRIYANKA FRANCO MD [facility] 09-29-2021 16:20-0400 Diastolic blood pressure 91 mm[Hg] DR PRIYANKA FRANCO MD [facility] 09-29-2021 16:20-0400 Heart rate 80 /min DR PRIYANKA FRANCO MD [facility] 09-29-2021 16:20-0400 Respiratory rate 18 /min DR PRIYANKA FRANCO MD [facility] 09-29-2021 16:20-0400 Systolic blood pressure 189 mm[Hg] DR PRIYANKA FRANCO MD [facility] 09-17-2021 20:16-0400 Body temperature 97.3 [degF] Dr. [...] Diastolic blood pressure 73 mm[Hg] Anjel Older NAT[employer] G[employer]ANT SUPERVISOR.FIELD DIRECTOR Work Phone: [facility] 09-15-2021 17:40-0400 Systolic blood pressure 170 mm[Hg] Anjel Older NATURAL G[employer]ANT SUPERVISOR.FIELD DIRECTOR Work Phone: [facility] 09-15-2021 16:57-0400 Body weight 71.22 kg Anjel Older NAT[employer] G[employer]ANT SUPERVISOR.FIELD DIRECTOR Work Phone: [facility] 09-15-2021 16:57-0400 Heart rate 68 /min Anjel Older NATURAL G[employer] PLANT SUPERVISOR.FIELD DIRECTOR Work Phone: [facility] 09-15-2021 16:57-0400 Respiratory rate 16 /min Anjel Older NAT[employer] G[employer] PLANT SUPERVISOR.FIELD DIRECTOR Work Phone: [facility] 09-15-2021 16:18-0400 Body height 172.7 cm Kaye Ortega MD Work Phone: [facility] 09-15-2021 16:18-0400 Body temperature 97.39 [degF] Kaye Ortega MD Work Phone: [facility] 09-15-2021 16:18-0400 Body weight 71.67 kg Kaye Ortega MD Work Phone: [facility] 09-15-2021 16:18-0400 Diastolic blood pressure 72 mm[Hg] Kaye Ortega MD Work Phone: [facility] 09-15-2021 16:18-0400 Heart rate 78 /min Kaye Ortega MD Work Phone: [facility] 09-15-2021 16:18-0400 SaO2% (BldA) [Mass fraction] 96 % Kaye Ortega MD Work Phone: [facility] 09-15-2021 16:18-0400 Systolic blood pressure 138 mm[Hg] Kaye Ortega MD Work Phone: [facility] 08-21-2021 09:30-0500 Body temperature 97.6 [degF] [...] Date Encounter Type Care Provider Facility Start: 03-18-2025 End: 03-18-2025 Emergency department patient visit MAGDALENE POWELL DO [facility] Start: 03-14-2025 End: 03-14-2025 ambulatory Efewongbe Oleghe Facility:[facility] Start: 03-14-2025 End: 03-14-2025 Emergency department patient visit Efroeongbe Suzye Facility:[facility] Start: 03-13-2025 End: 03-13-2025 ambulatory Josefa Doss [employer] Facility:[facility] Start: 03-11-2025 ambulatory Efewongbe Oleghe OLS Fa cility:[facility] Start: 03-04-2025 ambulatory Efewongbe Oleghe Facili ty:[facility] Start: 02-25-2025 ambulatory Efewongbe Oleghe OLS Fa cility:[facility] Start: 02-24-2025 End: 02-24-2025 ambulatory Josefa Doss SHAKER PLATE OPERATOR Facility:[facility] Start: 02-18-2025 ambulatory Efewongbe Oleghe OLS Fa cility:[facility] Start: 02-18-2025 Lorraine Ashton - Andreas Start: 02-11-2025 ambulatory Efewongbe Oleghe OLS Fa cility:[facility] Start: 02-11-2025 Lorraine Ashton - Andreas Start: 02-09-2025 ambulatory Efewongbe Oleghe OLS Fa cility:[facility] Start: 02-09-2025 Lorraine Ashton - Andreas Start: 02-04-2025 End: 02-04-[address] Daija Morton MD Work Phone: -[facility] Start: 02-04-2025 End: 02-04-2025 Josefa Doss SHAKER PLATE OPERATOR-C -[facility] Work Phone: Start: 02-03-2025 ambulatory Efewongbe Oleghe OLS Fa cility:[facility] Start: 02-03-2025 Lorraine Johns Start: 01-27-2025 ambulatory Efml Mena OLS Fa cility:[facility] Start: 01-27-2025 Lorraine Johns Start: 01-23-2025 End: 01-23-2025 Hannah Busch SHAKER PLATE OPERATORAshtyn -[facility] Work Phone: Start: 01-23-2025 End: 01-23-[address] Daija Morton MD Work Phone: -[facility] Start: 01-21-2025 End: 01-21-2025 Mackenzie SALDIVAR -[facility] Work Phone: Start: 01-21-2025 End: 01-21-[address] Daija Morton MD Work Phone: -[facility] Start: 01-20-2025 ambulatory Lorraine RAIN Fa cility:[facility] Start: 01-20-2025 Lorraine Johns Start: 01-17-2025 End: 01-17-2025 Refill Daija Morton MD Work Phone: [facility] [place] Comment on above: Refill Request Start: 01-13-2025 ambulatory Lorraine RAIN Fa cility:[facility] Start: 01-13-2025 Lorraine Johns Start: 01-09-2025 End: 01-09-[address] Daija Morton MD Work Phone: -[facility] Start: 01-09-2025 End: 01-09-2025 Josefa CORTEZ -[facility] Work Phone: Start: 01-08-2025 [facility] Work [facility]: Start: 01-07-2025 Dr. [facility] Work [facility]: Start: 01-07-2025 Paulino Durant DO -[facility] Start: 01-06-2025 ambulatory Lorraine Mena Facili ty:[facility] Start: 01-06-2025 Paulino Friend DO -[facility] Start: 01-05-2025 End: 01-05-2025 ambulatory Efml Almontee Facility:[facility] Start: 01-05-2025 End: 01-05-2025 Dr. Geronimo Downey MD -[place] [facility] Work Phone: Start: 01-05-2025 Paulino Durant DO -[facility]- [facility] Start: 01-05-2025 End: 01-08-2025 ambulatory Ryan Guerin Facility:[facility] Start: 01-05-2025 End: 01-08-2025 Evaluation and [...] ambulatory Dr. Daija Morton MD Work Phone: -[facility] Start: 12-31-2024 End: 12-31-2024 Dr. Lorraine Mena MD -[facility] Work Phone: Start: 12-31-2024 ambulatory Lorraine Mena OLS Fa cility:[facility] Start: 12-31-2024 Lorraine Mena MD [facility] Start: 12-30-2024 ambulatory Lorraine Mena OLS Fa cility:[facility] Start: 12-30-2024 Lorraine Mena MD -[facility] Start: 12-27-2024 End: 12-27-[address] Daija Morton MD Work Phone: -[facility] Start: 12-27-2024 End: 12-27-2024 Josefa Doss SHAKER PLATE OPERATOR-C -[facility] o[facility] Work Phone: Start: 12-26-2024 End: 12-26-2024 Follow-up encounter Anjel Omi YANGN.FIELD DIRECTOR Work Phone: [facility] [place] Start: 12-26-2024 Dr. Shilpa edwards MD -[place] [facility] Work Phone: Start: 12-25-2024 Dr. Shilpa edwards MD -[place] [facility] Work Phone: Start: 12-24-2024 Paulinojoann Henderson [facility] Start: 12-24-2024 Dr. Shilpa edwards MD -[place] [facility] Work Phone: Start: 12-23-2024 Paulino [facility] Start: 12-23-2024 [facility] Facility:[facility] Start: 12-23-2024 Dr. Raul Jensen MD -[facility] -S Start: 12-23-2024 Dr. Shilpa edwards MD -[place] [facility] Work Phone: Start: 12-22-2024 Dr. Lisha Talamantes DO -[facility] Work Phone: Start: 12-21-2024 Dr. Lisha Talamantes DO -[facility] Work Phone: Start: 12-20-2024 Dr. Lisha Talamantes DO -[facility] Work Phone: Start: 12-19-2024 Dr. iLsha Talamantes DO -[facility] Work Phone: Start: 12-18-2024 ambulatory [facility] Facility:[facility] Start: 12-18-2024 End: 12-26-2024 Evaluation and management of inpatient Dr. Daija Morton MD Work Phone: -[facility] Start: 12-18-2024 End: 12-26-2024 Dr. Shilpa Contreras MD -[facility] Work Phone: Start: 12-18-2024 ambulatory Milton Guajardo Facility:[facility] Start: 12-18-2024 Dr. Milton Guajardo MD -[facility] Start: 12-17-[address] Germain Morton MD Work Phone: -[facility] Start: 12-17-2024 Dr. Roman Patel DO -[facility] Work Phone: Start: 12-17-2024 End: 12-20-2024 ambulatory Daija Morton MD Work Phone: Internal Medicine [place] [id number] Start: 12-17-2024 End: 12-24-2024 Telephone encounter aDija Morton MD Work Phone: [facility] [place] Comment on above: Patient Update Start: 12-16-2024 End: 12-17-2024 Refill Daija Morton MD Work Phone: [facility] [place] Comment on above: Refill Request SOB (shortness of br eath) (Primary Dx) Start: 12-16-2024 Dr. Lisha Talamantes DO -[facility] Work Phone: Start: 12-15-2024 Dr. Lisha Talamantes DO -[facility] Work Phone: Start: 12-14-2024 Dr. Lisha Talamantes DO -[facility] Work Phone: Start: 12-13-2024 Non-patient / Non-visit Dr. Kisha Contreras MD -[place] [facility] Work Phone: Start: 12-13-2024 End: 12-16-2024 Evaluation and management of inpatient Dr. Shilpa Contreras MD -[facility] Work Phone: Start: 12-13-2024 End: 12-16-2024 Dr. Lisha Talamantes DO -[facility] Work Phone: Start: 12-13-2024 End: 12-13-2024 Refill Daija Morton MD Work Phone: [facility] [place] Comment on above: Refill Request Orders Jarett requesting r ecords Start: 12-12-2024 End: 12-12-2024 Subsequent hospital visit by physician Xr [facility] [place] Work Phone: Radiology Comment on above: Wheezing [R06.2] Start: 12-12-2024 End: 12-12-2024 ambulatory [facility] Facility:[facility] Start: 12-12-2024 End: 12-12-2024 Office outpatient visit 25 minutes Anjel Braga APRN.CNP Work Phone: [facility] [place] Comment on above: Other emphysema (HCC ) (Primary Dx); Smoker; Wheezing; Lower abdominal tenderness; Loose stools; On home oxygen therapy; Primary hypertension; Left leg pain; Falls; Weakness Start: 12-12-2024 End: 12-12-2024 ambulatory [facility] Facility:[facility] Start: 12-09-2024 End: 12-09-2024 Telephone encounter Daija Morton MD Work Phone: [facility] [place] Comment on above: Home Care Management ; Patient Update Start: 12-06-2024 End: 12-06-2024 Telephone encounter Daija Morton MD Work Phone: [facility] [place] Comment on above: [facility] update Start: 12-03-2024 End: 12-04-2024 Telephone encounter Daija Morton MD Work Phone: [facility] [place] Comment on above: Home Health Orders Start: 12-02-2024 ambulatory [facility] Facility:[facility] Start: 12-02-[address] Carla Crane MD -[facility] Start: 12-02-2024 Dr. Carla Crane MD -[facility] Start: 11-05-2024 End: 11-05-[address] Daija Morton MD Work Phone: [facility] Work Phone: Start: 11-05-2024 End: 11-05-[address] Carla Crane MD -[facility] Start: 11-05-2024 End: 11-05-2024 Dr. Carla Crane MD -[facility] Start: 11-05-2024 End: 11-05-2024 ambulatory Carla RAIN Facility:[facility] Start: 10-16-2024 ambulatory Carla RAIN Facili ty:[facility] Start: 10-16-[address] Carla Crane MD [facility] Start: 10-16-2024 Dr. Carla Crane MD [facility] Start: 09-02-2024 Non-patient / Non-visit Dr. Brody Maynard MD [facility] Work Phone: Start: 09-02-2024 Dr. Brody Maynard MD [facility] Work Phone: Start: 09-01-2024 Non-patient / Non-visit Dr. Celia rapp MD [facility] Work Phone: Start: 09-01-2024 Dr. Celia Toribio MD [facility] Work Phone: Start: 08-31-2024 Non-patient / Non-visit Dr. Celia rapp MD [facility] Work Phone: Start: 08-31-2024 Dr. Celia Toribio MD [facility] Work Phone: Start: 08-30-2024 Non-patient / Non-visit Dr. Ceila rapp MD [facility] In[facility] Work Phone: Start: 08-30-2024 Dr. Celia Toribio MD [facility] In[facility] Work Phone: Start: 08-29-2024 Non-patient / Non-[facility] Work Phone: Start: 08-29-2024 Dr. Celia Toribio [facility] Work Phone: Start: 08-28-2024 Non-patient / Non-visit Dr. Celia rapp MD [facility] Work Phone: Start: 08-28-2024 Dr. Celia Toribio MD [facility] Work Phone: Start: 08-27-2024 ambulatory [facility] Start: 08-27-2024 End: 09-02-2024 Evaluation and management of inpatient Dr. Brody Maynard MD -[facility] 3 Work Phone: Start: 08-27-2024 End: 09-02-2024 Dr. Brody Maynard MD -[facility] Work Phone: Start: 08-27-2024 Non-patient / Non-visit Dr. Celia rapp MD [facility] In[facility]icians Work Phone: Start: 08-27-2024 Dr. Celia Toribio MD [facility] Work Phone: Start: 08-26-2024 Non-patient / Non-visit Dr. Celia rapp MD [facility] In[facility] Work Phone: Start: 08-26-2024 Dr. Celia Toribio MD [facility] Work Phone: Start: 08-25-2024 Non-patient / Non-visit Dr. Lisha Talamantes DO [place] [facility] Work Phone: Start: 08-25-2024 Dr. Lihsa Talamantes DO -[facility] Work Phone: Start: 08-25-2024 ambulatory [facility] Facility:[facility] Start: 08-25-2024 Evaluation and management of inpatient Dr. Lisha Talamantes DO -[facility] Work Phone: Start: 08-25-[address] Germain Morton MD Work Phone: [facility] Work Phone: Start: 07-15-2024 ambulatory Carla Constantino ty:[facility] Start: 07-15-[address] Carla Crane MD -[facility] Start: 05-17-2024 End: 05-17-2024 Telephone encounter Daija Morton MD Work Phone: [facility] [place] Comment on above: Patient Update Start: 04-29-2024 End: 05-14-2024 Telephone encounter Daija Morton MD Work Phone: [facility] [place] Comment on above: Patient Update Start: 04-04-2024 End: 04-24-2024 Telephone encounter Daija Morton MD Work Phone: [facility] [place] Comment on above: Patient Update Start: 03-31-2024 End: 04-04-2024 Telephone encounter Sera SALDIVAR Work Phone: [place] [facility] Comment on above: Results Start: 03-25-2024 End: 03-25-2024 Telephone encounter Sera SALDIVAR Work Phone: [place] [facility] Comment on above: Results Start: 03-23-2024 End: 03-23-2024 Patient encounter procedure Pura Carter APRN.LAMIN Work Phone: [facility] Comment on above: Uncontrolled hyperte nsion (Primary Dx); Dysuria; Urinary tract infection without hematuria, site unspecified Start: 03-12-2024 End: 03-12-2024 Refill Daija Morton MD Work Phone: [facility] [place] Comment on above: Refill Request Start: 01-23-2024 Refill Daija Damon Work Phone: [facility] [place] Comment on above: Refill Request Start: 01-02-2024 Orders Only Ryan May MD Work Phone: Vascular Surgery Comment on above: Peripheral arterial disease (HCC) (Primary Dx) Start: 01-01-2024 Telephone encounter Daija pressley MD Work Phone: [facility] [place] Comment on above: No Show Start: 12-22-2023 Telephone encounter Daija pressley MD Work Phone: [facility] [place] Comment on above: Mental status change Start: 12-08-2023 Telephone encounter Daija pressley MD Work Phone: [facility] [place] Comment on above: Patient Update Start: 11-21-2023 End: 11-21-2023 Office outpatient visit 25 minutes Rebekah Luu PA-C Work Phone: [facility] [place] Comment on above: COPD with chronic br [...] Rebekah Luu PA-C Work Phone: [facility] [place] Comment on above: Orders (Follow skill ed nursing orders from [facility]) Start: 11-15-2023 Telephone encounter Rebekah Luu PA-C Work Phone: [facility] [place] Start: 11-09-2023 Telephone encounter Daija pressley MD Work Phone: [facility] [place] Comment on above: Orders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 dietitian [facility] Start: 12-17-2024 Providing care according to standard [facility] Start: 12-17-2024 Referral to occupational therapist [facility] Start: 12-17-2024 Referral to service [facility] Start: 12-17-2024 Speech therapy assessment [facility] Start: 12-17-2024 Tobacco use cessation education [facility] Start: 12-17-2024 Vital signs measurements [facility] Start: 12-17-2024 End: 12-17-2024 [facility] [...] Routine Medication management Expected: 12/17/2024, Expires: 03/18/2025 [facility] Work Phone: Comment on above: Expected: 12/17/2024, Expires: Start: 12-17-2024 End: 03-18-2025 Lipid 1996 panel - Serum or Plasma LIPID PANEL, FASTING Lab Routine Hyperlipidemia Expected: 12/17/2024, Expires: 03/18/2025 [facility] Comment on above: Expected: 12/17/2024, Expires: [...] [facility] Start: 12-13-2024 Continuous pulse oximetry [facility] Start: 12-13-2024 Inhalation therapy procedure [facility] Start: 12-13-2024 Insertion of catheter into peripheral vein [facility] Start: 12-13-2024 Introduction of urinary catheter [facility] Start: 12-13-2024 Measuring intake and output [facility] Start: 12-13-2024 [facility] [...] 12-13-2024 Respiratory Panel (PCR) Respiratory Panel (PCR) [facility] Start: 12-13-2024 Consultation [facility] Start: 12-13-2024 Patient referral to dietitian [facility] Start: 12-12-2024 End: 03-13-2025 Comprehensive metabolic 2000 panel - Serum or Plasma [facility] Comment on above: Expected: 12/12/2024, Expires: Start: 12-12-2024 End: 03-13-2025 Urinalysis complete panel - Urine [facility] Work Phone: Comment on above: Expected: 12/12/2024, Expires: Start: 12-12-2024 End: 12-12-2024 Patient encounter procedure [facility] [place] Comment on above: Discharge from Nursing facility - Follow up Discharge from [facility] facility -see phone note 12/09 Start: 11-20-2024 Annual PCP Team Chronic Disease Visit Annual PCP Team Chronic Disease Visit [facility] Start: 09-03-2024 DIABETES SCREEN DIABETES SCREEN [facility] Start: 09-02-2024 [facility] Start: 08-25-2024 Inhalation therapy procedure [facility] Start: 08-25-2024 Insertion of catheter into peripheral vein [facility] Start: 08-25-2024 Measuring intake and output [facility] Start: 08-25-2024 Patient referral to [...] 06-19-2024 Advance Directive Discussion Advance Directive Discussion [facility] Start: 06-19-2024 Medicare Advantage Annual Wellness Visit Medicare Advantage Annual Wellness Visit [facility] Start: 06-08-2024 Annual PCP Team Chronic Disease Visit Annual PCP Team Chronic Disease Visit [facility] Start: 06-08-2024 BP Controlled (<130/80) BP Controlled (<130/80) [facility] Start: 2024 RSV Vaccine (1 - 1-dose 75+ series) RSV Vaccine (1 - 1-dose 75+ series) [facility] Start: 03-19-2024 Lipid 1996 panel - Serum or Plasma Lipid Screening [facility] Start: 03-19-2024 Lipid panel Lipid Screening [facility] Start: 03-19-2024 LIPID SCREEN LIPID SCREEN [facility] Start: 02-18-2024 Covid-19 Vaccine ( season) Covid-19 Vaccine ( season) [facility] Start: 02-18-2024 Influenza vaccination Influenza Vaccine (#1) [facility] Start: 01-02-2024 End: 01-02-2024 Patient encounter procedure [facility] Comment on above: PVD FOLLOW UP Start: 01-01-2024 End: 01-01-2024 Patient encounter procedure 01/01/2024 9:20 AM EDT Office Visit [facility] [place] [address] [place] [address] Daija Morton MD [address] [place] [address] 4-6 wk follow up [facility] [place] Comment on above: 4-6 wk follow up Start: 11-21-2023 End: 02-20-2024 CBC W Auto Differential panel - Blood COMPLETE BLOOD COUNT AND DIFFERENTIAL Lab Routine COPD with chronic bronchitis (HCC) Expected: 11/21/2023, Expires: 02/20/2024 [facility] Comment on above: Expected: 11/21/2023, Expires: Start: 11-21-2023 End: 02-20-2024 Comprehensive metabolic 2000 panel - Serum or Plasma COMPREHENSIVE METABOLIC PANEL Lab Routine Mixed hyperlipidemia Expected: 11/21/2023, Expires: 02/20/2024 [facility] Comment on above: Expected: 11/21/2023, Expires: Start: 11-21-2023 End: 02-20-2024 Hemoglobin A1c in Blood HEMOGLOBIN A1C Lab Routine Mixed hyperlipidemia Expected: 11/21/2023, Expires: 02/20/2024 [facility] Work Phone: Comment on above: Expected: 11/21/2023, Expires: Start: 11-21-2023 End: 02-20-2024 Lipid 1996 panel - Serum or Plasma LIPID PANEL BASIC Lab Routine Mixed hyperlipidemia Expected: 11/21/2023, Expires: 02/20/2024 [facility] Comment on above: Expected: 11/21/2023, Expires: Start: 11-21-2023 End: 11-21-2023 Patient encounter procedure [facility] [place] Comment on above: hospital discharge/ assisted fractur e of pelvic hospital discharge/ assisted fracture of pelvic(See phone encounter) Start: 11-21-2023 End: 11-21-2023 Patient encounter procedure 11/21/2023 9:40 AM EDT Office Visit [facility] [address] [place] [address] Rebekah Luu PA-C [address] [place] [address] follow up senior care / copd [facility] Comment on above: follow up senior care / copd Start: 08-28-2023 ANNUAL PCP TEAM CHRONIC DISEASE VISIT ANNUAL PCP TEAM CHRONIC DISEASE VISIT [facility] Start: 08-02-2023 Patient discharge [facility] Start: 08-01-2023 Referral to occupational therapist [facility] Start: 08-01-2023 Referral to service [facility] Start: 07-31-2023 Speech therapy assessment [facility] Start: 07-31-2023 Oxygen therapy [facility] Start: 07-31-2023 Respiratory secretion precautions [facility] Start: 07-31-2023 Following clinical pathway protocol [facility] Start: 07-31-2023 Continuous pulse oximetry [facility] Start: 07-31-2023 Physiotherapy of chest [facility] Start: 07-31-2023 Hospital admission, emergency, from emergency room, medical nature [facility] Start: 07-31-2023 Inhalation therapy procedure [facility] Start: 07-30-2023 Dual pressure spontaneous ventilation support [facility] Start: 07-30-2023 Admission procedure [facility] Start: 07-30-2023 [facility] Start: 07-26-2023 Patient discharge [facility] Start: 07-25-2023 Referral to occupational therapist [facility] Start: 07-25-2023 Referral to service [facility] Start: 07-25-2023 Inhalation therapy procedure [facility] Start: 07-24-2023 Following clinical pathway protocol [...] 06-19-2023 Advance Directive Discussion Advance Directive Discussion [facility] Start: 04-04-2023 Patient discharge [facility] Start: 04-03-2023 Consultation [facility] Start: 04-02-2023 Contact precautions [facility] Start: 03-30-2023 End: 03-30-2023 Following clinical pathway protocol [facility] Start: 03-30-2023 Assessment of risk of venous thromboembolism [facility] Start: 03-30-2023 Catheterization of vein [facility] Start: 03-30-2023 Inhalation therapy procedure [facility] Start: 03-30-2023 [facility] Start: 03-30-2023 Inhalation therapy procedure [facility] Start: 03-29-2023 [facility] Start: 03-29-2023 Emergency department visit low/moder severity EMERGENCY DEPT VISIT SF [facility] Start: 03-10-2023 ANNUAL PCP TEAM CHRONIC DISEASE VISIT ANNUAL PCP TEAM CHRONIC DISEASE VISIT [facility] Start: 02-17-2023 Covid-19 Vaccine () Covid-19 Vaccine () [facility] Start: 02-17-2023 Influenza vaccination [facility] Start: 02-04-2023 ANNUAL PCP TEAM CHRONIC DISEASE VISIT ANNUAL PCP TEAM CHRONIC DISEASE VISIT [facility] Start: 01-28-2023 ANNUAL PCP TEAM CHRONIC DISEASE VISIT ANNUAL PCP TEAM CHRONIC DISEASE VISIT [facility] Start: 01-14-2023 SHINGRIX VACCINE (2 of 3) SHINGRIX VACCINE (2 of 3) [facility] Comment on above: Postponed from 11/19/2020 (Declined at t his time) Start: 01-03-2023 Urine microalbumin profile DTAP,TDAP,TD (2 - Td or Tdap) [facility] Start: 11-17-2022 ANNUAL PCP TEAM CHRONIC DISEASE VISIT ANNUAL PCP TEAM CHRONIC DISEASE VISIT [facility] Start: 10-26-2022 COVID-19 VACCINE (4 - Moderna series) COVID-19 VACCINE (4 - Moderna series) [facility] Start: 10-21-2022 [facility] Start: 10-07-2022 ANNUAL PCP TEAM CHRONIC DISEASE VISIT ANNUAL PCP TEAM CHRONIC DISEASE VISIT [facility] Start: 09-15-2022 ANNUAL PCP TEAM CHRONIC DISEASE VISIT ANNUAL PCP TEAM CHRONIC DISEASE VISIT [facility] Start: 06-19-2022 ADVANCE DIRECTIVE DISCUSSION ADVANCE DIRECTIVE DISCUSSION [facility] Start: 04-02-2022 ANNUAL PCP TEAM CHRONIC DISEASE VISIT ANNUAL PCP TEAM CHRONIC DISEASE VISIT [facility] Start: 03-29-2022 End: 05-29-2022 Hemoglobin A1c in Blood HGB A1C Lab Routine Medication management Expected: 03/29/2022, Expires: 05/29/2022 [facility] Work Phone: Comment on above: Expected: 03/29/2022, Expires: Start: 03-29-2022 End: 05-29-2022 Lipid 1996 panel - Serum or Plasma LIPID PANEL BASIC Lab Routine Hyperlipidemia Expected: 03/29/2022, Expires: 05/29/2022 [facility] Work Phone: Comment on above: Expected: 03/29/2022, Expires: 2 Start: 03-29-2022 End: 05-29-2022 SCHEDULE LAB TESTING SCHEDULE LAB TESTING Lab Routine Expected: 03/29/2022, Expires: 05/29/2022 [facility] Work Phone: Comment on above: Expected: 03/29/2022, Expires: 2 Start: 02-17-2022 Influenza vaccination INFLUENZA (#1) [facility] Start: 01-14-2022 End: 03-16-2022 CBC W Auto Differential panel - Blood [facility] Work Phone: Comment on above: Expected: 01/14/2022, Expires: 2 Start: 11-30-2021 Patient discharge [facility] Work Phone: Start: 11-28-2021 Care planning and problem solving actions [facility] Work Phone: Start: 11-26-2021 Administration of blood product [facility] Work Phone: Start: 11-26-2021 Catheterization of vein [facility] Work Phone: Start: 11-26-2021 Notification of physician [facility] Work Phone: Start: 11-26-2021 Referral to occupational therapist [facility] Work Phone: Start: 11-26-2021 End: 11-26-2021 Referral to service [facility] Work Phone: Start: 11-26-2021 Catheterization of vein [facility] Work Phone: Start: 11-26-2021 Following clinical pathway protocol [facility] Work Phone: Start: 11-26-2021 Inhalation therapy procedure [facility] Work Phone: Start: 11-25-2021 Assessment of risk of venous thromboembolism [facility] Work Phone: Start: 11-25-2021 Insertion of catheter into peripheral vein [facility] Work Phone: Start: 11-25-2021 Measuring intake and output [facility] Work Phone: Start: 11-25-2021 Oxygen [...] 2 to 3 Expected: 10/23/2021, Expires: 12/23/2021 [facility] Work Phone: Comment on above: Expected: 10/23/2021, Expires: 2 Start: 10-19-2021 End: 12-19-2021 Hemoglobin A1c/Hemoglobin.total in Blood HGB A1C Lab Routine Medication management Expected: 10/19/2021, Expires: 12/19/2021 [facility] Work Phone: Comment on above: Expected: 10/19/2021, Expires: 2 Start: 10-19-2021 End: 12-19-2021 LIPID PANEL BASIC LIPID PANEL BASIC Lab Routine Hyperlipidemia Expected: 10/19/2021, Expires: 12/19/2021 [facility] Work Phone: Comment on above: Expected: 10/19/2021, Expires: 2 Start: 10-19-2021 End: 12-19-2021 SCHEDULE LAB TESTING SCHEDULE LAB TESTING Lab Routine Expected: 10/19/2021, Expires: 12/19/2021 [facility] Work Phone: Comment on above: Expected: 10/19/2021, Expires: 2 Start: 10-17-2021 Colonoscopy COLONOSCOPY [facility] Start: 10-17-2021 COLORECTAL CANCER SCREENING COLORECTAL CANCER SCREENING [facility] Start: 09-22-2021 End: 11-22-2021 CBC W Auto Differential panel - Blood CBC + DIFF Lab Routine Anemia, unspecified type Expected: 09/22/2021, Expires: 11/22/2021 [facility] Work Phone: Comment on above: Expected: 09/22/2021, Expires: 2 Start: 09-22-2021 End: 11-22-2021 PT panel - Platelet poor plasma by Coagulation assay PROTHROMBIN TIME/PT Lab Routine Encounter for monitoring Coumadin therapy Expected: 09/22/2021, Expires: 11/22/2021 [facility] Work Phone: Comment on above: Expected: 09/22/2021, [...] Hospital Work Phone: Start: 08-19-2021 Referral to pain management physician [facility] Work Phone: Start: 08-19-2021 [facility] Work Phone: Start: 08-19-2021 Inhalation therapy procedure [facility] Work Phone: Start: 08-18-2021 Following clinical [...] 06-19-2021 ADVANCE DIRECTIVE DISCUSSION ADVANCE DIRECTIVE DISCUSSION [facility] Start: 06-04-2021 Smpl repair scalp/neck/ax/genit/trunk 2.6-7.5cm RPR S/N/AX/GEN/TRNK2.6-7.5C M [facility] Work Phone: Start: 11-19-2020 SHINGRIX VACCINE (2 of 3) SHINGRIX VACCINE (2 of 3) [facility] Start: 11-05-2020 COVID-19 VACCINE (2 - Moderna 3-dose series) COVID-19 VACCINE (2 - Moderna 3-dose series) [facility] Start: 11-05-2020 COVID-19 VACCINE (2 - Moderna series) COVID-19 VACCINE (2 - Moderna series) [facility] Start: 03-19-2020 Hepatitis B surface antibody level LDL CHOLESTEROL [facility] Start: 11-15-2015 FECAL OCCULT BLOOD FECAL OCCULT BLOOD [facility] Start: 11-15-2015 Screening for malignant neoplasm of colon Fecal Occult Blood [facility] Start: 01-17-2014 Medicare Annual Wellness Visit Medicare Annual Wellness Visit [facility] Start: 2009 RSV Vaccine (1 - 1-dose 60+ series) RSV Vaccine (1 - 1-dose 60+ series) [facility] Start: 2009 RSV Vaccine (1 - Risk 60-74 years 1-dose series) RSV Vaccine (1 - Risk 60-74 years 1-dose series) [facility] Start: 1999 Influenza vaccination LUNG CANCER SCREENING [facility] Start: 1999 Screening for malignant neoplasm of lung Lung Cancer Screening [facility] Start: 1999 SHINGRIX VACCINE (1 of 2) SHINGRIX VACCINE (1 of 2) [facility] Start: 1994 COLOGUARD (FIT-DNA) COLOGUARD (FIT-DNA) [facility] Start: [address] COLONOGRAPHY [facility] Start: 1994 Screening for malignant neoplasm of colon [facility] Start: 1994 SIGMOIDOSCOPY SIGMOIDOSCOPY [facility] Start: 1979 Zoledronic acid therapy ALPHA-1 ANTITRYPSIN DEFICIENCY SCREENING [facility] Start: 1967 BP CONTROLLED (<130/80) BP CONTROLLED (<130/80) [facility] inic Bacteria identified in Urine by Culture URINE CULTURE Microbiology Routine Dysuria Ordered: 09/15/2021 [facility] Work Phone: Comment on above: Ordered: 09/15/2021 Bacteria identified in Urine by Culture Urine Culture [facility] Bacteria identified in Urine by Culture URINE CULTURE Microbiology Routine Dysuria 03/23/2024 2:06 PM EDT [facility] Work Phone: Blood ammonia measurement [facility] carBAMazepine [Mass/ volume] in Serum or Plasma [facility] Clostridioides diffi cile DNA [Presence] in Unspecified specimen by ALEENA with probe detection [facility] End: 01-28-2023 ECG COMPLETE ECG COMPLETE ECG Routine Essential hypertension Chest pain, unspecified type 1 Occurrences starting 01/28/2022 until 01/28/2023 [facility] Work Phone: Comment on above: 1 Occurrences starting 01/28/2022 until 01/28/2023 Hemoglobin A1c/Hemoglobin.total in Blood [facility] Hemoglobin.gastroint estinal. lower [Presence] in Stool by Immunoassay FECAL OCCULT BLOOD TEST Lab Routine Acute blood loss anemia Angiodysplasia of colon with hemorrhage Ordered: 01/14/2022 [facility] Work Phone: Comment on above: Ordered: 01/14/2022 INR in Blood by Coag ulation assay [facility] Lactic acid measurement [facility] End: 12-05-2022 LUNG DIFFUSION CAPACITY (DLCO) LUNG DIFFUSION CAPACITY (DLCO) PFT Routine COPD with chronic bronchitis (HCC) 1 Occurrences starting 11/05/2021 until 12/05/2022 [facility] Work Phone: Comment on above: 1 Occurrences starting 11/05/2021 until 12/05/2022 End: 01-15-2026 LUNG DIFFUSION CAPACITY (DLCO) LUNG DIFFUSION CAPACITY (DLCO) PFT Routine SOB (shortness of breath) 1 Occurrences starting 12/17/2024 until 01/15/2026 [facility] Comment on above: 1 Occurrences starting 12/17/2024 until 01/15/2026 Nucleic acid assay [facility] Patient Education [facility] Work Phone: Patient referral [facility] Work Phone: End: 06-18-2023 PVR LEG OCREY VAS LAB PVR LEG COREY VAS LAB Vascular Lab Routine PVD (peripheral vascular disease) (HCC) 1 Occurrences starting 01/31/2022 until 06/18/2023 [facility] Work Phone: Comment on above: 1 Occurrences starting 01/31/2022 until 06/18/2023 PVR LEG COREY VAS LAB PVR LEG COREY VAS LAB Vascular Lab Routine Peripheral arterial disease (HCC) PVD (peripheral vascular disease) (HCC) 1 Occurrences starting 12/26/2022 [facility] Work Phone: Comment on above: 1 Occurrences starting 12/26/2022 End: 12-05-2022 Radiologic exam chest 2 views XR CHEST 2V FRONTAL/LAT Radiology Routine COPD with chronic bronchitis (HCC) 1 Occurrences starting 11/05/2021 until 12/05/2022 [facility] Work Phone: Comment on above: 1 Occurrences starting 11/05/2021 until 12/05/2022 Respiratory pathogen s DNA and RNA panel - Respiratory specimen by ALEENA with probe detection [facility] End: 01-15-2026 SPIROMETRY WITH DILATOR IF OBSTRUCTED SPIROMETRY WITH DILATOR IF OBSTRUCTED PFT Routine SOB (shortness of breath) 1 Occurrences starting 12/17/2024 until 01/15/2026 [facility] Work Phone: Comment on above: 1 Occurrences starting 12/17/2024 until 01/15/2026 Troponin T.cardiac [Mass/volume] in Serum or Plasma by High sensitivity method [facility] Troponin T.cardiac [Mass/volume] in Serum or Plasma by High sensitivity method [facility] Urinalysis complete panel - Urine URINALYSIS, WITH MICROSCOPIC Lab Routine Dysuria Hematuria, unspecified type Ordered: 09/15/2021 [facility] Work Phone: Comment on above: Ordered: 09/15/2021 Urinalysis complete panel - Urine UA WITH CULTURE IF INDICATED Lab Routine Dysuria Ordered: 09/15/2021 [facility] Work Phone: Comment on above: Ordered: 09/15/2021 US Carotid arteries [facility] End: 01-01-2025 US Lower extremity artery - bilateral PVR LEG COREY VAS LAB Vascular Lab Routine Peripheral arterial disease (HCC) 1 Occurrences starting 01/02/2024 until 01/01/2025 [facility] Work Phone: Comment on above: 1 Occurrences starting 01/02/2024 until 01/01/2025 End: 01-11-2026 XR Chest PA and Lateral XR CHEST 2V FRONTAL/LAT Radiology Routine Wheezing 1 Occurrences starting 12/12/2024 until 01/11/2026 [facility] Comment on above: 1 Occurrences starting 12/12/2024 until 01/11/2026 XR Chest PA and Lateral XR CHEST 2V FRONTAL/LAT Radiology Routine Wheezing 12/12/2024 3:36 PM EDT [facility] Immunizations Immunization Date Immunization Notes Care Provider [facility] 03-31-2023 Influenza High-Dose Quadrivalent Dr. Daija Morton Work Phone: [facility] 03-31-2023 influenza virus vaccine, unspecified formulation Daija Morton MD Work Phone: [facility] 06-04-2021 tetanus toxoid, redu marianna diphtheria toxoid, and acellular pertussis vaccine, adsorbed Dr. Daija Morton Work Phone: [facility] 04-05-2021 influenza, high-dose , quadrivalent vaccine (FLUZONE HIGH DOSE QUADRIVALENT) Lizette Ulloa RN Work Phone: [facility] 04-05-2021 influenza virus vaccine, unspecified formulation Anjel Braga APRN.FIELD DIRECTOR Work Phone: [facility] 10-08-2020 COVID-19 vaccine, fu ll dose (MODERNA) Lizette Ulloa RN Work Phone: [facility] 09-24-2020 zoster vaccine, live Harriett lomax [employer]ANT SUPERVISOR.REFINERY OPERATOR COKING Work Phone: [facility] 09-16-2020 influenza, high-dose , quadrivalent vaccine (FLUZONE HIGH DOSE QUADRIVALENT) Respiratory Wstr Work Phone: [facility] Work Phone: 08-09-2020 influenza, injectabl e, quadrivalent, contains preservative Harriett Albert NATURAL G[employer] PLANT SUPERVISOR.REFINERY OPERATOR COKING Work Phone: [facility] 08-09-2020 influenza, injectabl e, quadrivalent, preservative free Dr. Daija Morton Work Phone: [facility] 08-09-2020 influenza, seasonal, injectable Dr. Daija Morton Work Phone: [facility] 08-09-2020 influenza, seasonal, injectable, preservative free Harriett Albert NAT[employer] G[employer] PLANT SUPERVISOR.REFINERY OPERATOR COKING Work Phone: [facility] 05-21-2020 influenza, high-dose , quadrivalent vaccine (FLUZONE HIGH DOSE QUADRIVALENT) Lizette Ulloa RN Work Phone: [facility] Work Phone: 07-11-2019 influenza, high dose seasonal, preservative-free Lizette Ulloa RN Work Phone: [facility] Work Phone: 05-18-2018 pneumococcal polysaccharide vaccine, 23 valent Lizette Ulloa RN Work Phone: [facility] 03-14-2018 influenza, high dose seasonal, preservative-free Lizette Ulloa RN Work Phone: [facility] 05-31-2017 influenza, high dose seasonal, preservative-free Lizette Ulloa RN Work Phone: [facility] 06-01-2016 influenza, high dose seasonal, preservative-free Lizette Mayi RN Work Phone: [facility] Work Phone: 03-23-2016 influenza, injectabl e, quadrivalent, contains preservative Harriett Albert NATURAL G[employer] PLANT SUPERVISOR.REFINERY OPERATOR COKING Work Phone: [facility] 03-23-2016 influenza, injectabl e, quadrivalent, preservative free Dr. Daija Morton Work Phone: [facility] 03-23-2016 influenza, seasonal, injectable Dr. Daija Morton Work Phone: [facility] 03-23-2016 influenza, seasonal, injectable, preservative free Lizette Ulloa RN Work Phone: [facility] Work Phone: 07-14-2015 pneumococcal conjuga te vaccine, 13 valent Lizette Ulloa RN Work Phone: [facility] Work Phone: 09-09-2014 influenza, injectabl e, quadrivalent, contains preservative Harriett Albert NATURAL G[employer] PLANT SUPERVISOR.REFINERY OPERATOR COKING Work Phone: [facility] 09-09-2014 influenza, injectabl e, quadrivalent, preservative free Dr. Daija Morton Work Phone: [facility] 09-09-2014 influenza, seasonal, injectable Dr. Daija Morton Work Phone: [facility] 09-09-2014 influenza, seasonal, injectable, preservative free Lizette Ulloa RN Work Phone: [facility] Work Phone: 03-25-2013 pneumococcal polysaccharide vaccine, 23 valent Lizette Ulloa RN Work Phone: [facility] Work Phone: 03-25-[address] Nemesio Morton Work Phone: [facility] Work Phone: 03-25-2013 pneumococcal vaccine , unspecified formulation Respiratory Wstr Work Phone: [facility] Work Phone: 03-24-[address] Daija Morton Work Phone: [facility] 03-24-2013 influenza virus vaccine, unspecified formulation Lizette Ulloa RN Work Phone: [facility] Work Phone: 03-24-2013 influenza, seasonal, injectable Harriett Albert APRN.REFINERY OPERATOR COKING Work Phone: [facility] 03-24-2013 influenza, seasonal, injectable, preservative free Lizette Ulloa RN Work Phone: [facility] Work Phone: 01-03-2013 tetanus toxoid, redu marianna diphtheria toxoid, and acellular pertussis vaccine, adsorbed Lizette Ulloa RN Work Phone: [facility] Payers Date Payer Category Payer Unknown [id number] 2024 Medicare (Managed Care) [id number]. [id number] 2024 Medicaid [id number] 2024 Unknown [id number] 2024 Self-pay [id number] 2023 Private Health Insurance [id number] 2022 Unknown [id number] [address] [facility] AARP MEDICAR E [facility] AARP MEDICARE HMO [id number] 2021-Present [phone] [address] [address] [place] [address] HMO [id number] 2017 Medicaid [id number] 2017 Medicaid [id number] .[id number] 2014 Medicare [id number] 2014 Medicare [id number] 2014 Medicare [id number] .[id number] 1949 Unknown [id number] 2.16.840.1.784218.3.579.2.6 27 1949 Unknown [id number] 2.16.840.1.402889.3.579.2.6 27 1949 Unknown [id number] 2.16.840.1.097794.3.579.2.6 27 Private Health Insurance [facility] [id number] Unknown [id number] Unknown [id number] Unknown [id number] 2.16.840.1.441907.3.579.2.4 62 Unknown [id number] 2.16.840.1.254454.3.579.2.4 62 Unknown [id number] 2.16.840.1.748342.3.579.2.4 62 Unknown [id number] 2.16.840.1.310285.3.579.2.4 62 Unknown [id number] 2.16.840.1.238643.3.579.2.4 62 Unknown [id number] 2.16.840.1.136898.3.579.2.4 62 Unknown [id number] 2.16.840.1.779016.3.579.2.4 62 Unknown [id number] 2.16.840.1.841570.3.579.2.4 62 Unknown [id number] 2.16.840.1.265023.3.579.2.4 62 Unknown [id number] 2.16.840.1.847894.3.579.2.4 62 Unknown [id number] 2.16.840.1.420122.3.579.2.4 62 Unknown [id number] 2.16.840.1.195653.3.579.2.4 62 Unknown [id number] 2.16.840.1.869132.3.579.2.4 62 Unknown [id number] 2.16.840.1.036064.3.579.2.4 62 Unknown [id number] 2.16.840.1.379946.3.579.2.4 62 Unknown [id number] 2.16.840.1.944308.3.579.2.4 62 Unknown [id number] 2.16.840.1.335547.3.579.2.4 62 Unknown [id number] 2.16.840.1.140095.3.579.2.4 62 Unknown [id number] 2.16.840.1.126786.3.579.2.4 62 Unknown [id number] 2.16.840.1.603275.3.579.2.4 62 Unknown [id number] 2.16.840.1.447473.3.579.2.4 62 Unknown [id number] 2.16.840.1.202960.3.579.2.4 62 Unknown [id number] 2.16.840.1.773764.3.579.2.4 62 Unknown [id number] 2.16.840.1.585521.3.579.2.4 62 Unknown [id number] 2.16.840.1.354057.3.579.2.4 62 Unknown [id number] 2.16.840.1.315393.3.579.2.4 62 Unknown [id number] 2.16.840.1.163208.3.579.2.4 62 Unknown [id number] 2.16.840.1.901746.3.579.2.4 62 Unknown [id number] 2.16.840.1.727869.3.579.2.4 62 Unknown [id number] 2.16.840.1.970030.3.579.2.4 62 Unknown [id number] 2.16.840.1.169143.3.579.2.4 62 Unknown [id number] 2.16.840.1.572255.3.579.2.4 62 Unknown [id number] 2.16.840.1.098042.3.579.2.4 62 Unknown [id number] 2.16.840.1.030238.3.579.2.4 62 Unknown [id number] 2.16.840.1.711928.3.579.2.4 62 Unknown [id number] 2.16.840.1.030234.3.579.2.4 62 Unknown [id number] 2.16.840.1.797587.3.579.2.4 62 Unknown [id number] 2.16.840.1.152681.3.579.2.4 62 Unknown [id number] 2.16.840.1.796527.3.579.2.4 62 Unknown [id number] 2.16.840.1.850500.3.579.2.4 62 Unknown [id number] 2.16.840.1.042010.3.579.2.4 62 Unknown [id number] 2.16.840.1.082770.3.579.2.4 62 Unknown [id number] 2.16.840.1.697555.3.579.2.4 62 Unknown [id number] 2.16.840.1.768179.3.579.2.4 62 Unknown [id number] 2.16.840.1.900617.3.579.2.4 62 Unknown [id number] 2.16.840.1.835315.3.579.2.4 62 Unknown [id number] 2.16.840.1.626778.3.579.2.4 62 Unknown [id number] 2.16.840.1.410172.3.579.2.4 62 Unknown [id number] 2.16.840.1.558505.3.579.2.4 62 Unknown [id number] 2.16.840.1.403725.3.579.2.4 62 Unknown [id number] 2.16.840.1.086287.3.579.2.4 62 Unknown [id number] 2.16.840.1.013456.3.579.2.4 62 Unknown [id number] 2.16.840.1.832989.3.579.2.4 62 Unknown [id number] 2.16.840.1.669219.3.579.2.4 62 Unknown [id number] 62 Unknown [id number] 62 Unknown [id number] 62 Unknown [id number] 62 Unknown [id number] 62 Unknown [id number] 62 Unknown [id number] 62 Unknown [id number] 62 Unknown [id number] 62 Unknown [id number] 62 Unknown [id number] 62 Social History Date Type Detail Facility Start: 04-10-2020 End: 01-05-2025 Tobacco smoking status NHIS Ex-smoker [facility] Start: 06-19-1964 History of tobacco use Cigarette Smo ker [facility] Start: 04-10-2020 End: 12-26-2022 Cigarettes smoked current (pack per day) - Reported 2 [facility] Start: 04-10-2020 End: 03-23-2024 Tobacco use and exposure Smokeless tobacco non-user [facility] Start: 08-26-2021 End: 12-12-2024 Alcohol intake Current non-drinker of alcohol (finding) [facility] Start: 04-16-2015 History SDOH Alcohol Comment History of alcohol abuse. I cut that out. [facility] Start: 12-17-2019 History SDOH Financial 5 [facility] Start: 12-17-2019 History SDOH Food Worry 2 [facility] Start: 12-17-2019 History SDOH Food Scarcity 1 [facility] Start: 08-22-2019 End: 01-31-2022 Tobacco Comment patient started using patches [facility] Start: 1950 Sex Assigned At Not on file [facility] Start: 10-12-2020 End: 03-10-2022 Exposure to SARS-CoV-2 (event) Not sure [facility] Start: 06-19-1964 End: 03-23-2024 Tobacco smoking status NHIS Smokes tobacco daily [facility] Start: 09-17-2021 End: 01-23-2025 Tobacco smoking status NHIS Unknown if ever smoked [facility] Start: 01-20-2021 None [facility] Start: 12-16-2019 Half-Way [facility] Start: 08-09-2020 Cigarettes [facility] Start: 1950 Sex Assigned At Male [facility] Start: 09-14-2021 End: 01-28-2022 Exposure to SARS-CoV-2 (event) Unable to assess [facility] Start: 05-14-2018 Tobacco smoking status Light t obacco smoker (finding) [facility] Sex Assigned At [facility] Start: 12-17-2019 End: 12-26-2022 Tobacco use panel [facility] How hard is it for y ou to pay for the very basics like food, housing, medical care, and heating Not hard at all [facility] (I/We) worried massimo er (my/our) food would run out before (I/we) got money to buy more. Sometimes true [facility] The food that (I/we) bought just didn't last, and (I/we) didn't have money to get more. Never true [facility] Start: [birth year]19-1964 History of tobacco use Current smoke r [facility] Start: 08-25-2024 End: 08-25-2024 Tobacco smoking status NHIS Current some day smoker [facility] Start: 06-02-2009 End: 08-25-2024 Sex Male (finding) [facility] Medical Equipment Procedure Code Equipment Code Equipment Original Text Equipment Identifier Dates EGD, with monitored anesthesia care [id number] FDA Start: 12-23-2024 EGD, with monitored anesthesia care [id number] FDA Start: 01-06-2025 Graft [place] 7mm T hin Wall Heparin Propaten Ptfe 80cm 60cm Vascular Removable - [id number] Start: 10-10-2019 Patch Cv 8x.8cm Tapr Vsgrd Bov - [id number] Start: 10-23-2013 Comment on above: Description: Implant ed left femoral artery Patch Vascu-Guar d Taper Bovine Pericardial 8x.8cm Cardiovascular [place] - [id number] Start: 10-08-2019 Stent Palmaz Gen esis Opta Pro Flexsegment 8mm 40mm Large Stainless Steel 80 - [id number] Start: 10-08-2019 Stent Palmaz Gen esis Opta Pro Flexsegment 8mm 40mm Large Stainless Steel 80 - [id number] Start: 10-08-2019 Stent Trchbr 7mm 7fr 38mm 120 - [id number] Start: 10-23-2013 Comment on above: Description: Second stent lot #[id number]. exp. 03/2016 Stent Vasc 8mm 1 5cm 120cm .035 - [id number] Start: 10-23-2013 Comment on above: Description: Implant ed in left iliac artery Stent Trchbr 7mm 7fr 38mm 120 - [id number] Start: 10-23-2013 Stent Corey 10mm 8 0mm 120cm .035 - [id number] Start: 10-23-2013 Comment on above: Description: Implant ed in right iliac artery Stent Corey 10mm 8 0mm 120cm .035 - [id number] Start: 10-23-2013 Comment on above: Description: Implant ed in right iliac artery Stent Icast 8mm Ptfe Stainless Steel 59mm 80cm Tracheobronchial Covered - [id number] Start: 10-08-2019 Stent Icast 8mm Ptfe Stainless Steel 59mm 80cm Tracheobronchial Covered - [id number] Start: 10-08-2019 Goals Date Patient Goal [...] Functional status Ambulates;Emeka r;Bedside Commode;Stand and pivot [facility] Work Phone: 12-26-2024 Functional status Stand and pivot [facility] Work Phone: 12-16-2024 Functional [facility] Work [facility]: 12-16-2024 Functional status Ambulates;Back to bed [facility] Work Phone: 09-02-2024 Functional status With Assist of 1 [facility] Work Phone: 09-01-2024 Functional status Bathroom [facility] Work Phone: 08-02-2023 Functional status With Assist of 1 [facility] Work Phone: 08-01-2023 Functional status Bedrest [facility] Work Phone: 07-26-2023 Functional status Chair [facility] Work Phone: 07-26-2023 Functional status Bedrest [facility] Work Phone: 07-25-2023 Functional status None [facility] Work Phone: 04-04-2023 Functional status Up ad chadwick;Bath room Privilege [facility] Work Phone: 10-22-2022 Functional Status Minimum assistance [facility] 10-22-2022 Functional Status Standard Safet y ID band on, Call device within reach, Bed in low position, Wheels locked, Upper/Half-Length side-rails up, Phone within reach, Bedside Cart Locked [facility] 11-30-2021 Functional status Ambulates [facility] Work Phone: 09-29-2021 Functional Status [facility] 09-13-2021 Are you deaf, or do you have serious difficulty hearing No 09/13/2021 4:47 PM Bessy Ovalles, RN No [facility] 09-13-2021 Are you blind, or do you have serious difficulty seeing, even when wearing glasses No 09/13/2021 4:47 PM Bessy Ovalles, RN No [facility] 09-13-2021 Do you have serious difficulty walking or climbing stairs No 09/13/2021 4:47 PM EDT Bessy Nunez, RN No [facility] 09-13-2021 Do you have difficul ty dressing or bathing No 09/13/2021 4:47 PM EDT Bessy Nunez, RN No [facility] 09-13-2021 Because of a physica l, mental, or emotional condition, do you have difficulty doing errands alone such as visiting a physician's office or shopping No 09/13/2021 4:47 PM EDT Bessy Nunez, SEYMOUR No [facility] 08-21-2021 Functional status Ambulates;Emeka r;Bathroom Privilege [facility] Work Phone: 08-21-2021 Functional status Tolerates Activity Well [facility] Work Phone: Mental Status Date Assessment Result Facility 01-08-2025 Cognitive function Touch/Shaking [facility] Work Phone: 01-05-2025 Cognitive function Awake;Disoriented [facility] Work Phone: 12-26-2024 Cognitive function Voice/Name [facility] Work Phone: 12-17-2024 Cognitive function Voice/Name [facility] Work Phone: 12-16-2024 Cognitive function Voice/Name [facility] Work Phone: 09-02-2024 Cognitive function Voice/Name [facility] Work Phone: 08-25-2024 Cognitive function Level Of Cons ciousness Awake;Alert;Appropriate;Fol lows Commands [facility] Work Phone: 08-02-2023 Cognitive function Voice/Name [facility] Work Phone: 07-26-2023 Cognitive function Person;Place;Time [facility] Work Phone: 07-25-2023 Cognitive function Voice/Name [facility] Work Phone: 04-04-2023 Cognitive function Voice/Name [facility] Work Phone: 02-17-2023 Cognitive function Level Of Cons ciousness Awake;Alert;Appropriate;Fol lows Commands [facility] Work Phone: 12-31-2022 Cognitive function Level Of Cons ciousness Awake;Alert;Appropriate;Fol lows Commands [facility] Work Phone: 10-22-2022 Mental Status Orientation Oriented x 4 [facility] 10-22-2022 Mental Status [facility] 03-07-2022 Cognitive function Level Of Cons ciousness Awake;Alert;Appropriate [facility] Work Phone: 03-02-2022 Cognitive function Level Of Cons ciousness Awake;Alert;Appropriate [facility] Work Phone: 01-28-2022 Cognitive function Level Of Cons ciousness Awake;Alert;Appropriate;Fol lows Commands [facility] Work Phone: 11-30-2021 Cognitive function Voice/Name [facility] Work Phone: 10-08-2021 Cognitive function Level Of Cons ciousness Awake;Alert;Appropriate;Fol lows Commands [facility] Work Phone: 09-29-2021 Mental Status [facility] 09-13-2021 Because of a physica l, mental, or emotional condition, do you have serious difficulty concentrating, remembering, or making decisions No 09/13/2021 4:47 PM EDT Bessy Nunez RN No [facility] 08-21-2021 Cognitive function Voice/Name [facility] Work Phone: 06-12-2021 Cognitive function Level Of Cons ciousness Awake;Alert;Appropriate;Fol lows Commands [facility] Work Phone: Clinical Notes 10-08-2019 to 03-18-2025 Note Date & Type Note Facility 03-18-2025 Hospital Discharg e instructions Patient Education 03/18/2025 04:26:45 Scalp Contusion Scalp Contusion A contusion is another word for bruise. It develops when small blood vessels break open and leak blood into the nearby area. A scalp contusion can result from a bump, hit, or fall. Symptoms can include changes in skin color (bruising). For instance, the skin may turn blue or black. Swelling and pain may also occur. The swelling from the contusion should go down in a few days. Bruising and pain may take longer to go away. Home care General care You may use acetaminophen to control pain, unless another pain medicine was prescribed. Don t take aspirin or NSAIDs (nonsteroidal anti-inflammatory drugs) or anticoagulants such as warfarin without talking to your provider first. These medicines increase the risk of bleeding. To help reduce swelling and pain, apply a cold source to the injured area for up to 20 minutes at a time. Do this as often as directed. Use a cold pack or bag of ice wrapped in a thin towel. Never put a cold source directly on your skin. If you have cuts or scrapes around the site of the contusion, be sure to care for them as directed. Note about concussion Because the injury was to your head, it is possible that you could have a concussion (mild brain injury). Symptoms of a concussion can show up later. For this reason, be alert for symptoms of concussion once you re home. Seek emergency medical care if you have any of the symptoms below over the next hours to days: Headache Nausea or vomiting Dizziness Sensitivity to light or noise Unusual sleepiness or grogginess Trouble falling asleep Personality changes Vision changes Memory loss Confusion Trouble walking or clumsiness Loss of consciousness (even for a short time) Inability to be awakened During the time period that you re watching for concussion symptoms: Don t drink alcohol or use sedatives or medicines that make you sleepy. Don t drive or operate machinery. Don t do anything strenuous, such as heavy lifting or straining. Limit tasks that require concentration. This includes reading, watching TV, using a smartphone or computer, and playing video games. Don t return to sports, exercise, or other activity that could result in another injury. Ask your healthcare provider when you can safely resume these activities. Follow-up care Follow up with your healthcare provider, or as directed. If imaging tests were done, they will be reviewed by a doctor. You will be told the results and any new findings that may affect your care. When to seek medical advice Call your healthcare provider right away if any of these occur: Pain that worsens or that can t be relieved with medicines New or increased swelling or bruising Fever of 100.4 F (38 C) or higher, or as directed by your healthcare provider Redness, warmth, or drainage from the injured area Any depression or bony abnormality in the injured area Fluid drainage or bleeding from the nose or ears Call 911 Call 911 right away if any of these occur: Stiff neck Weakness or numbness in any part of the body Seizures [id number] [employer]. [address] [place] [address]. All rights reserved. This information is not intended as a substitute for professional medical care. Always follow your healthcare professional's instructions. Follow Up Care 03/18/2025 02:08:48 With:Go to emergency room if symptoms worsen Address:Unknown When:2-4 days With:CARLA CRANE MD Address: [address] [place] [phone] When:2-4 days [facility] 03-18-2025 Note Discharge Instructions Thank you for allowing [facility] to assist you with your healthcare needs. The following is important discharge information regarding your hospital visit. Diagnosis from Today's Visit Closed head injury Scalp hematoma What to Do Next Instructions from Your Care Team CT imaging did demonstrate evidence of an incidentally noted lung nodule on the left with recommendation for nonemergent CT scan for further evaluation of this. Please follow-up with primary physician regarding this. No qualifying data available. Post Acute Orders No qualifying data available. You Need to Schedule the Following Appointments Follow Up with Go to emergency room if symptoms worsen When:Within 2-4 days Follow Up with ACRLA CRANE MD When:Within 2-4 days Where:[address] [place] [phone] Allergies NKA Medications Please ask your primary doctor or pharmacist before taking any other medication not listed, including over the counter drugs, herbal medications, vitamins and or supplements as they may interact with your home medications. What How Much When Instructions Last Dose Unchanged atorvastatin (atorvastatin 40 mg oral tablet) 1 tab(s) by mouth Daily at bedtime Unchanged carBAMazepine (TEGretol 200 mg oral tablet) 1 tab(s) by mouth Two (2) times a day Unchanged dicyclomine (dicyclomine 10 mg oral capsule) 1 cap by mouth Four (4) times a day Duration: 7 Days Unchanged dicyclomine (dicyclomine 20 mg oral tablet) 1 tab(s) by mouth Three (3) times a day before meals Unchanged docusate (docusate sodium 100 mg oral [...] medication providers or retail pharmacies. Education Materials Scalp Contusion A contusion is another word for bruise. It develops when small blood vessels break open and leak blood into the nearby area. A scalp contusion can result from a bump, hit, or fall. Symptoms can include changes in skin color (bruising). For instance, the skin may turn blue or black. Swelling and pain may also occur. The swelling from the contusion should go down in a few days. Bruising and pain may take longer to go away. Home care General care You may use acetaminophen to control pain, unless another pain medicine was prescribed. Don t take aspirin or NSAIDs (nonsteroidal anti-inflammatory drugs) or anticoagulants such as warfarin without talking to your provider first. These medicines increase the risk of bleeding. To help reduce swelling and pain, apply a cold source to the injured area for up to 20 minutes at a time. Do this as often as directed. Use a cold pack or bag of ice wrapped in a thin towel. Never put a cold source directly on your skin. If you have cuts or scrapes around the site of the contusion, be sure to care for them as directed. Note about concussion Because the injury was to your head, it is possible that you could have a concussion (mild brain injury). Symptoms of a concussion can show up later. For this reason, be alert for symptoms of concussion once you re home. Seek emergency medical care if you have any of the symptoms below over the next hours to days: Headache Nausea or vomiting Dizziness Sensitivity to light or noise Unusual sleepiness or grogginess Trouble falling asleep Personality changes Vision changes Memory loss Confusion Trouble walking or clumsiness Loss of consciousness (even for a short time) Inability to be awakened During the time period that you re watching for concussion symptoms: Don t drink alcohol or use sedatives or medicines that make you sleepy. Don t drive or operate machinery. Don t do anything strenuous, such as heavy lifting or straining. Limit tasks that require concentration. This includes reading, watching TV, using a smartphone or computer, and playing video games. Don t return to sports, exercise, or other activity that could result in another injury. Ask your healthcare provider when you can safely resume these activities. Follow-up care Follow up with your healthcare provider, or as directed. If imaging tests were done, they will be reviewed by a doctor. You will be told the results and any new findings that may affect your care. When to seek medical advice Call your healthcare provider right away if any of these occur: Pain that worsens or that can t be relieved with medicines New or increased swelling or bruising Fever of 100.4 F (38 C) or higher, or as directed by your healthcare provider Redness, warmth, or drainage from the injured area Any depression or bony abnormality in the injured area Fluid drainage or bleeding from the nose or ears Call 911 Call 911 right away if any of these occur: Stiff neck Weakness or numbness in any part of the body Seizures [phone] [employer]. [address] [place] [address]. All rights reserved. This information is not intended as a substitute for professional medical care. Always follow your healthcare professional's instructions. Additional Information VACCINATE! IT SAVES LIVES! Members of the community who have not yet received the COVID-19 vaccine and would like to receive it can visit one of [facility] vaccine clinics. There are many vaccine clinic locations within the [facility]. For locations and available times, please visit [email or web address] It is important to note that some COVID mobile vaccine clinics are held outdoors and may be canceled in rainy or stormy conditions. To learn more about pediatric vaccinations (ages 5-11), we invite you to visit the [facility] webpage. [email or web address] To learn more about the COVID-19 vaccine, we invite you to visit the CDC website for a list of frequently asked questions. https://www.cdc.gov/coronavirus/ 2019-ncov/vaccines/faq.html [facility] [employer] Patient Portal Access Instructions: Stay connected with your healthcare team and access your personal medical information anytime with the [facility] Patient Portal. If you would like a full copy of your medical records please contact the [facility] Medical Records Department Monday through Monday between 8a.m. and 4:30p.m. Please follow the directions below to access the portal: 1.Access the email account you provided upon registration to the [facility].2.Look for an invitation email from [facility].3.Open the email and access the invitation link: Accept Invitation to [facility]4.Fill in the required batres to create your account. To access your account, visit [employer] or scan the [employer] code above. Click the blue button labeled Access Patient Portal and then log in with the username and password that you created in the steps above. You can then view a summary of results, a summary of your visits, and the ability to download your summaries to your computer or send the information securely to a physician. Remember that your healthcare information is confidential, so carefully consider who you will allow to register on the [facility] Patient Portal for access to your information. You can also access the [facility] Patient Portal on the [employer]. Simply click on Health Records under Health Data and then click on the [employer] logo. HOW TO SAFELY DISPOSE OF PRESCRIPTION MEDICATIONS Please use one of the following methods to safely dispose of your unused medications. 1.Use a drug disposal kit: the drug disposal pouch allows you to safely discard your old and unused drugs. Ask your nurse to give you one when you are discharged.2.Visit a local take-back location: Many local pharmacies and police departments have programs that collect old and unwanted prescription drugs. Call your local pharmacy or go to http://bit.ly/6B8Ax6z to find one close to you.3.Make use of household items: Use cat litter or old coffee grounds to dispose medications if other options are not available. Mix your drugs with these household products, seal them in an airtight container and throw it into the garbage. Call [facility]: [phone] to be sure your drugs can be [...] drowsiness, such as benzodiazepines, also known as benzos, including diazepam and alprazolam, muscle relaxants or sleep aids. Never sell or share prescription opioids. This is illegal. Store opioids in a secure place and out of reach of others (including children, family, friends and visitors). The last page(s) of this document has been signed and retained as a CHART COPY Signatures Patient Education Materials Scalp Contusion Medication Leaflets My discharge plan and instructions have been reviewed and explained to me and I,PEDRO PABLO SIERRA understand my current condition and have read and understand these discharge instructions. I have received a written copy of the plan/instructions. If I have questions, I am aware that I should contact my doctor. Patient/Mate Relief Signature: Date/Time: Relationship to Patient: Witness Name/Signature: Date/Time: [facility] 03-18-2025 Note Exam Date Time Procedure Performing Provider Status 03/18/25 3:[address] Maxillofacial w/o Contrast LEYLA SHOOK MD; Auth (Verified) [id number] ORIGINAL EXAMINATION: CT OF THE FACE WITHOUT CONTRAST 03/18/2025 3:18 am TECHNIQUE: CT of the face was performed without the administration of intravenous contrast. Multiplanar reformatted images are provided for review. Automated exposure control, iterative reconstruction, and/or weight based adjustment of the mA/kV was utilized to reduce the radiation dose to as low as reasonably achievable. COMPARISON: None HISTORY: ORDERING SYSTEM PROVIDED HISTORY: Reason for Exam: fall FINDINGS: FACIAL BONES: The frontal sinuses, orbital sandoval, maxilla, pterygoid plates, zygomatic arches, hard palate, nasal bones and mandible are intact. The visualized portions of the temporomandibular joints are aligned. The patient is edentulous. ORBITAL CONTENTS: The globes appear intact. The extraocular muscles, optic nerve sheath complexes and lacrimal glands appear unremarkable. No retrobulbar hematoma or mass is seen. Right-sided lens implant. SINUSES: There is no evidence of acute sinusitis, such as air fluid level. Small mucous retention cyst in the right maxillary sinus. The visualized mastoid air cells are clear. SOFT TISSUES: Soft tissue swelling over the left supraorbital region with a scalp hematoma measuring up to 0.9 cm in thickness. IMPRESSION: No acute facial bone trauma. Soft tissue swelling over the left supraorbital region with a scalp hematoma. I have personally reviewed the images of this examination and agree with the resident's findings and interpretation. Interpreted by: Leyla Shook MD Preliminary Report By: Ren Tompkins Electronically signed By Leyla Shook MD Dictated Date: 03/18/2025 3:30:22 AM Prelim Date: 03/18/2025 3:35:53 AM Sign Date: 03/18/2025 4:22:40 AM Ordering Provider: MAGDALENE POWELL RP [facility]09-30-2025 Note* Exam Date Time Procedure Performing Provider Status 03/18/25 3:[address] Spine Cervical w/o Contrast LEYLA SHOOK MD; Auth (Verified) [id number] ORIGINAL EXAMINATION: CT OF THE CERVICAL SPINE WITHOUT CONTRAST03/18/2025 3:16 am TECHNIQUE: CT of the cervical spine was performed without the administration of intravenous contrast. Multiplanar reformatted images are provided for review. Automated exposure control, iterative reconstruction, and/or weight based adjustment of the mA/kV was utilized to reduce the radiation dose to as low as reasonably achievable. COMPARISON: CT cervical spine 08/26/2009 HISTORY: ORDERING SYSTEM PROVIDED HISTORY: Reason for Exam: fall FINDINGS: No acute fracture or compression deformity. Exaggerated cervical lordosis may be positional in nature. Grade 1 anterolisthesis at C7-T1. Moderate multilevel degenerative changes. No severe spinal canal stenosis. Variable areas of foraminal stenosis. No aggressive osseous lesions. The prevertebral and paraspinal soft tissues demonstrate no acute abnormality. Scattered emphysematous changes and pleuroparenchymal scarring in the visualized lung apices. Partially visualized nodule in the left apex measuring up to 0.6 cm is not well evaluated on this exam. IMPRESSION: No acute fracture or traumatic malalignment. Partially visualized 0.6 cm nodule with spiculation in the left apex is not well evaluated on this exam. Nonemergent CT thorax is suggested for further evaluation. I have personally reviewed the images of this examination and agree with the resident's findings and interpretation. Interpreted by: Leyla Shook MD Preliminary Report By: Ren Tompkins Electronically signed By Leyla Shook MD Dictated Date: 03/18/2025 3:24:46 AM Prelim Date: 03/18/2025 3:30:12 AM Sign Date: 03/18/2025 4:21:10 AM Ordering Provider: MAGDALENE POWELL RP [facility]09-30-2025 Note* Exam Date Time Procedure Performing Provider Status 03/18/25 3:[address] Head or Brain w/o Contrast LEYLA SHOOK MD; Auth (Verified) [id number] ORIGINAL EXAMINATION: CT OF THE HEAD WITHOUT CONTRAST03/18/2025 3:15 am TECHNIQUE: Axial CT images from skull base to vertex without IV contrast. This exam was performed according to our departmental dose optimization program, and includes the following measures where applicable: automated exposure control, adjustment of the mAs and/or kVp according to patient size and/or exam, and an iterative reconstruction algorithm. COMPARISON: None HISTORY: ORDERING SYSTEM PROVIDED HISTORY: Reason for Exam: fall FINDINGS: There is no intracranial hemorrhage, mass effect or abnormal extra-axial fluid collection. The finley-white differentiation is grossly maintained. Large area of encephalomalacia in the left frontoparietal lobe. There is likely a 3.3 cm arachnoid cyst with mass effect in the left temporal lobe. Scattered confluent areas of white matter hypoattenuation are noted in the cerebral white matter, nonspecific but compatible with moderate to severe chronic microvascular angiopathy. Atherosclerotic calcifications are present in the cavernous carotid arteries bilaterally. There is proportionate enlargement of the ventricular system and cortical sulci, compatible with parenchymal volume loss. The visualized portions of the orbits demonstrate no acute abnormality. Right-sided lens implant. Soft tissue swelling over the left supraorbital region with a small scalp hematoma measuring up to 0.8 cm in thickness. No acute calvarial fracture. Mucous retention cyst in the right maxillary sinus. The remainder of the included paranasal sinuses and mastoid air cells are predominantly clear. IMPRESSION: No definite acute intracranial abnormality. Chronic and incidental findings as above. Soft tissue swelling over the left supraorbital region with a small scalp hematoma. Preliminary Report was Dictated by a Resident Interpreted by: Leyla Shook MD Preliminary Report By: Ren Tompkins Electronically signed By Leyla Shook MD Dictated Date: 03/18/2025 3:19:25 AM Prelim Date: 03/18/2025 3:24:34 AM Sign Date: 03/18/2025 4:14:48 AM Ordering Provider: MAGDALENE POWELL RP [facility]08-01-2025 Telephone encounter Note* Telephone Encounter - Debby Saldana LPN - 01/17/2025 9:06 AM EDT The patient has been identified by name [...] Saldana LPN January 17, 2025 9:07 AM [facility]08-01-2025 Miscellaneous Notes* Telephone Encounter - Debby Saldana LPN - 01/17/2025 9:06 AM EDT The patient has been identified by name [...] 17, 2025 9:07 AM [facility] Discharge summary Author Ryan Guerin [facility] Note Date/Time January 08, 2025 4:09 pm [facility] Medical Records Department [address] [place] [address] Transfer to [facility] MR#: [id number] Acct: [id number] Name: PEDRO PABLO SIERRA Rep #:[id number] : 1950 74 From: Ryan Guerin DO PCP: Dr. Lorraine Mena MD Status:A DM IN Certification of patient admission REQUIRED AT TIME OF ADMISSION. I CERTIFY THAT POST-HOSPITAL ECF SERVICES ARE REQUIRED TO BE GIVEN ON AN IN-PATIENT BASIS BECAUSE OF THE ABOVE NAMED PATIENT'S NEED FOR [facility] CARE ON A CONTINUING BASIS FOR THE CONDITION(S) FOR WHICH HE/SHE WAS RECEIVING IN-PATIENT HOSPITAL SERVICES PRIOR TO HIS/HER TRANSFER TO THE [facility]. 01/08/25 1609<Electronically signed by Ryan Guerin DO> Diet Diet [...] advanced diet as tolerated to cardiac per ENTRY LEVEL ACCOUNTANT recommendations. 2. Initiate via PEG: Jevity 1.5Cal [...] in before D/C Order can be placed): Nursing Home Facility 01/08/25 6688 <Electronically signed by Ryan Guerin DO> Cosigner Signature (if applicable): CC: Dr. Frankie Galindo MD; Dr. Lorraine Mena MD ~ [facility] Work Phone: 1(272) 860-836507-23-2025 Hospital Discharge instructionsAdditional Instructions Date of Discharge: 01/08/25[facility] Work Phone: 1(493) 757-741207-23-2025 Progress note Author Ryan Guerin [facility] Note Date/Time January 08, 2025 7:25 am [facility] Medical Records Department [address] [place] [address] Progress Note - Hospitalist 01/07/251951 MR#: [id number] Acct: [id number] Name: PEDRO PABLO SIERRA Rep #:[id number] : 1950 74 From: Ryan Guerin DO PCP: Dr. Lorraine Mena MD Status:A DM IN Location: [place] [address] Reason for Visit Chief Complaint: Suspected PEG tomorrow found Subjective Subjective The date of this injury is 01/07/2025: Patient was seen and examined today, he iscurrently on 2 L of oxygen via nasal cannula, I restarted his tube feedings today, we are currently awaiting [facility]CERT [facility]. Objective Data Objective Data [...] 35 minutes Charges/Coding Visit Charges Inpatient E&M: 22749 Subs Hosp L2 01/08/25724 <Electronically signed by Ryan Guerin DO> Cosigner Signature (if applicable): CC: ~ Signed [facility] Work Phone: 1(981) 373-843607-22-2025 Progress note Author Ryan Parkspip[facility] centerles[facility] Note Date/Time January 07, 2025 7:52 pm [facility] Medical Records Department [address] [place] [address] Progress Note - Hospitalist 01/07/251943 MR#: [id number] Acct: [id number] Name: PEDRO PABLO SIERRA Rep #:[id number] : 1950 74 From: Ryan Guerin DO PCP: Dr. Lorraine Mena MD Status:A DM IN Location: [place] [address] Reason for Visit Chief Complaint: Suspected PEG [...] 35 minutes Charges/Coding Visit Charges Inpatient E&M: 67072 Subs Hosp L2 01/07/251951 <Electronically signed by Ryan Guerin DO> Cosigner Signature (if applicable): CC: ~ Signed [facility] Work Phone: 1([phone]) 928-973707-22-2025 Progress note Author Paulino Henderson [facility] Note Date/Time January 07, 2025 5:41 pm [facility] Medical Records Department [address] [place] [address] Progress Note 01/07/25 1739 MR#: [id number] Acct: [id number] Name: PEDRO PABLO SIERRA Shannan Rep #:[id number] : 1950 74 From: Paulino Henderson DO PCP: Dr. Lorraine Mena MD Status:A DM IN Location: [place] [address] Progress Note Patient had some respiratory distress [...] for daily usage. Visit Charges Inpatient E&M: 26804 Subs Hosp L3 01/07/25 1741 <Electronically signed by Paulino Henderson DO> Paulino Henderson DO Cosigner Signature (if applicable): CC: ~ Signed [facility] Work Phone: 1(511) 434-345407-21-2025 Consult note Author Segun [facility] Note Date/Time January 06, 2025 6:04 pm [facility] Medical Records Department [address] [place] [address] Anesthesia Postop Eval II 01/06/25 1755 MR#: [id number] Acct: [id number] Name: PEDRO PABLO SIERRA Rep #:[id number] : 1950 74 From: Segun Patel MD PCP: Dr. Lorraine Mena MD Status:A DM IN Y Race: C Location: [place] [address] 1-1 Anesthesia Postop Eval I Sum Postop Eval Completion status Anesthesia document: Postop Eval 1 completed: Yes Anesthesia Postop Eval I Summary Anesthesia Postop Eval I Summary: Anesthesia Postop Eval I: Assessment Summary Airway patent Yes 01/06/25 16:59 COPYRIGHT [email or web address] Spontaneous unlabored Yes 01/06/25 16:59 COPYRIGHT [email or web address] respirations Mental status Awake,Calm 01/06/25 16:59 COPYRIGHT [email or web address] nausea No 01/06/25 16:59 COPYRIGHT [email or web address] Vomiting No 01/06/25 16:59 COPYRIGHT [email or web address].ABAR Anesthesia Postop Eval I: Fluid Summary Crystalloid volume administer 100 01/06/25 16:59 COPYRIGHT [email or web address] (ml) Colloids volume administered ( ml) Blood Product volume administered (ml) Total IV fluid infused 100 01/06/25 16:59 COPYRIGHT [email or web address].YURI Anesthesia Postop Eval I: Summary Notes Anesthesia Complication No 01/06/25 16:59 COPYRIGHT [email or web address] Anesthesia Complication Comment: Post-operative progress note Anesthesia: [...] patient's current conditions. Patient transferred back to [facility] with oxygen. 01/06/251803 <Electronically signed by Segun corbett MD> Date _ Segun Patel MD Cosigner Signature: Date CC: ~ Signed [facility] Work Phone: 1(949) 798-407907-21-2025 Consult note Author Roman Holland [facility] Note Date/Time January 06, 2025 4:59 pm [facility] Medical Records Department [address] [place] [address] Anesthesia Postop Eval I 01/06/25 1658 MR#: [id number] Acct: [id number] Name: ARIEL SIERRAJAYY Pierce Rep #:[id number] : 1950 74 From: Roman reaves CRNA PCP: Dr. Lorraine Mena MD Status:A DM IN Y Race: C Location: [place] [address] 06-19 Anesthesia: Postop Eval I Current Vital [...] Anesthesia document: Postop Eval 1 completed: Yes 01/06/25 7299 <Electronically signed by Roman Greene COPYRIGHT CLERK> Date _ Roman Holland COPYRIGHT CLERK Cosigner Signature: Date CC: ~ Signed [facility] Work Phone: 1(901) 399-633407-21-2025 Consult note Author Segun [facility] Note Date/Time January 06, 2025 3:58 pm [facility] Medical Records Department [address] [place] [address] Pre-Anesthesia Evaluation 01/06/25 1542 MR#: [id number] Acct: [id number] Name: PEDRO PABLO SIERRA Rep #:[id number] : 1950 74 From: Segun Patel MD PCP: Dr. 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 - spring tester: Anesthesia History - spring tester Hx Hospitalization Yes 08/08/20 16:59 Any Problems [...] Yes NPO since: 00:00 PONV PONV - spring tester: PONV - spring tester Female HX of Motion Sickness HX of N/V After Surgery Non-Smoker Duration of Surgery greater than 60 minutes Number of Risk Factors PONV Score Height & Weight Height & Weight: Anesthesia: Height & Weight Height 6 ft 01/06/25 08:50 Weight: 66.5 kg 01/06/25 08:50 Body Mass Index (BMI) 19.8 01/06/25 05:00 Respiratory Assessment Respiratory Assessment - spring tester: Respiratory Tract Infection Hx - spring tester Hx Respiratory Tract Infection No 12/23/24 09:15 Any additional information?: Yes Hx Respiratory Tract Infection: Yes History of Anesthesia Respiratory Infection details: Patient had an episode of aspiration pneumonia yesterday at the assisted. Patient had to be put up to 10 L of oxygen on the Ventimask. He is currently on 8 L nasal cannula. STOP Sleep Apnea STOP Sleep Apnea - spring tester: STOP Sleep Apnea - spring tester Hx Hypertension Yes 01/05/25 14:48 Hx Sleep [...] Tobacco Use History Tobacco Use History - spring tester: Tobacco Use History - spring tester Tobacco Use Cigarettes 12/26/24 04:00 Smoking Status Unknown if ever smoked 01/05/25 14:48 Hx Tobacco Use No: unknown 01/05/25 14:48 Years Smoking Packs Smoked per Day Smoking Cessation Date was Yes - quit smoking within 15 01/05/25 09:44 within the last 15 years years Hx Smoking Cessation Date Hx Smoking Cessation No 01/05/25 14:48 Counseling Hematologic Medial History Hematologic Hx - spring tester: Hematologic 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 Hx of Blood Transfusion No 01/05/25 14:48 [...] confused, unrespo /Reproduction History /Reproductive History - spring tester: /Reproductive Hx- spring tester Hx Now Gestational Age (in weeks): EDC: [...] 01/06/25 14:28 Carbamazepine 200 Mg/10 Ml [facility] ([facility]) GT Not Given 4X/DAY LEON Cholecalciferol 50 [...] 100 Mg Capsule GT Not Given DAILY LEON Hydralazine HCl 20 mg 01/05/25 13:49 01/06/25 [...] mls @ 15 mls/hr 01/05/25 15:14 IV .[id number] PRN Saline Flush Sodium Chloride 250 mls @ 15 mls/hr 01/05/25 15:14 IV .[id number] PRN Additional IVPB Infusion Sodium Chloride 1,000 mls @ 15 mls/hr 01/06/25 15:15 IV .Q48H LEON Losartan Potassium 100 mg 01/06/25 10:00 01/06/25 11:35 Losartan Potassium 100 Mg Tablet GT Not Given DAILY LEON Protocol Melatonin 3 mg 01/05/25 14:46 Melatonin 3 Mg Tablet GT QHS PRN PRN Insomnia Metoprolol Tartrate 50 mg 01/05/25 22:00 01/06/25 11:35 Metoprolol Tartrate 50 Mg Tablet GT Not Given BID LEON Protocol Mirtazapine 15 mg 01/05/25 22:00 01/05/25 [...] 100 Mg Tablet GT Not Given DAILY LEON Sodium Chloride 10 - 40 ml 01/05/25 [...] D3) 50 50 mcg feeding tube DA KATHERINE 12/24/24 01/05/25 Rx mcg (2,000 unit) tablet [...] no additional complaints, except as documented. 01/06/25 1537 <Electronically signed by Segun corbett MD> Date _ Segun Patel MD Cosigner Signature: Date CC: ~ Signed [facility] Work Phone: 1(596) 140-621507-21-2025 Procedure [facility] 01-06-2025 Procedure [facility]07-21-2025 Radiology Diagnostic study [facility]07-20-2025 Consult note Author Paulino Friend [facility] Note Date/Time January 05, 2025 7:50 pm [facility] Medical Records Department [address] [place] [address] Consultation - GI 01/05/251945 MR#: [id number] Acct: [id number] Name: PEDRO PABLO SIERRA Rep #:[id number] : 1950 74 From: Paulino Henderson DO PCP: Dr. Lorraine Mena MD Status:A DM IN Location: [place] [address] HPI Consult Data Date of Consult: 01/05/25 [...] to put the PEG tube back in. [facility] Medical History Acute CVA (cerebrovascular accident) Aphasia [...] D3) 50 50 mcg feeding tube DA KATHERINE 12/24/24 01/05/25 Rx mcg (2,000 unit) tablet [...] 76.7 H, Lymph % (Auto) 14.2 L, [place] % (Auto) 7.0, Eos % (Auto) 1.2, [...] pCO2 47.9 H ABG pO2 52 L Dann Test Positive O2 Delivery Device Cannula Vent Mode Not entered Imaging Radiology Impression Chest X-Ray 01/05/25 09:59 IMPRESSION: COPD. No acute findings. Reading Location: [id number] KUB X-Ray 01/05/25 13:02 IMPRESSION: A PEG tube tip is projected in the region of the stomach. Contrast material is identified within the stomach. There is no extravasation of the contrast. Reading Location: [id number] Assessment & Plan Assessment/Plan (1) PEG tube malfunction: PLAN: 74-year-old with multiple comorbidities who recently pulled his PEG tube out. We will take him for endoscopy tomorrow for PEG tube replacement. His bowel return was explained alternatives, benefits, risk including understanding bleeding, infection, sepsis, perforation, need for more surgery and . He will have an ASA of 3. Charges/Coding Visit Charges Inpatient E&M: 74811 Init Hosp L3 01/05/25 1950 <Electronically signed by Paulino Friend DO> Cosigner Signature (if applicable): CC: Dr. Lorraine Mena MD~ Signed [facility] Work Phone: 1([phone]) 634-244107-20-2025 History and physical note Author Frankie aGlindo [facility] Note Date/Time January 05, 2025 2:02 pm [facility] Medical Records Department [address] [place] [address] H&P Exam - Hospitalist 01/05/25 1336 MR#: [id number] Acct: [id number] Name: PEDRO PABLO SIERRA Rep #:[id number] : 1950 74 From: Frankie Galindo MD PCP: Dr. Lorraine Mena MD Status:A DM IN Location: [place] [address] HPI - General General Date of Admission: 01/05/25 Date of Service: 01/05/25 Chief Complaint: Suspected PEG tomorrow found HPI Narrative PEDRO PABLO SIERRA, is a 74 M with recent diagnosis of acute left MCA CVA discharged to a senior care facility. Patient had a PEG tube placed [...] to a monitored bed for further management [facility] Medical History Acute CVA (cerebrovascular accident) Aphasia [...] D3) 50 50 mcg feeding tube DA KATHERINE 12/24/24 01/05/25 Rx mcg (2,000 unit) tablet [...] 76.7 H, Lymph % (Auto) 14.2 L, [place] % (Auto) 7.0, Eos % (Auto) 1.2, [...] pCO2 47.9 H ABG pO2 52 L Dann Test Positive O2 Delivery Device Cannula Vent Mode Not entered Imaging Radiology Impression Chest X-Ray 01/05/25 09:59 IMPRESSION: COPD. No acute findings. Reading Location: [id number] KUB X-Ray 01/05/25 13:02 IMPRESSION: A PEG tube tip is projected in the region of the stomach. Contrast material is identified within the stomach. There is no extravasation of the contrast. 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 Was [...] ? Currently on apixaban CODE STATUS from [facility] documentation DNR CCA no intubation reordered Time spent in the patient's overall evaluation,decision-making process, review of diagnostic data, adjustment of management, discussion with other providers, nursing nursing and ancillary staff involved in patient's care documentation, 78 Minutes Charges/Coding Visit Charges Inpatient E&M: 00020 Init Hosp L3 01/05/25 1402 <Electronically signed by Frankie Galindo MD> Cosigner Signature (if applicable): CC: Dr. Frankie Galindo MD; Dr. Lorraine Mena MD~ Signed [facility] Work Phone: 1(666) 777-393507-20-2025 Discharge summary Author Fco Monroy [facility] Note Date/Time January 05, 2025 1:41 pm [facility] Medical Records Department [address] [place] [address] Emergency Department Summary 01/05/25 MR#: [id number] Acct: [id number] Name: PEDRO PABLO SIERRA Rep #:[id number] : 1950 74 From: Fco Monroy MD [...] sent in because of malfunctioning gastrostomy tube. 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 Apparently their blood pressure readings were elevated and reason the chief complaint is hypertension. Per the assisted report to nursing staff he was sent in because of gastrostomy tube problems. Reading summary of care patient with history of COPD/asthma with chronic hypoxemic respiratory failure on 2 L by nasal cannula. There was no mention of aspiration or risks of aspiration. Prior similar symptoms: No Recent Illness/Hospitalization: Yes [facility] Medical History Acute CVA (cerebrovascular [...] D3) 50 50 mcg feeding tube DA KATHERINE 12/24/24 01/05/25 Rx mcg (2,000 unit) tablet [...] 76.7 H Lymph % (Auto) 14.2 L [place] % (Auto) 7.0 Eos % (Auto) 1.2 [...] pCO2 47.9 H ABG pO2 52 L Dann Test Positive O2 Delivery Device Cannula Vent [...] IMPRESSION: COPD. No acute findings. Reading Location: [facility] KUB X-Ray 01/05/25 13:02 IMPRESSION: A PEG tube tip is projected in the region of the stomach. Contrast material is identified within the stomach. There is no extravasation of the contrast. Reading Location: [facility] Radiology report was reviewed. Since there is [...] respiratory failure with hypoxia, Current use of snf anticoagulation, CVA (cerebral vascular accident), COPD (chronic [...] MD [Primary Care Provider] - Print Language: [place] Disposition Disposition: Assisted Living What to do if you have Problems For any increased pain, shortness of breath, bleeding, nausea or vomiting, chestpain, or any unexpected problems, contact your Primary Care Provider. Call [facility] ([phone]) or report to the closest Emergency Room. Call 911 if necessary. 01/05/25 1341 <Electronically signed by Fco Monroy MD> Cosigner Signature (if applicable): CC: Dr. Lorraine Mena MD ~ Signed [facility] Work Phone: 1(783) 478-642307-20-2025 Discharge summary Author Fco Monroy [facility] Note Date/Time January 05, 2025 1:41 pm [facility] Medical Records Department [address] [place] [address] Emergency Department Summary 01/05/25 MR#: [id number] Acct: [id number] Name: PEDRO PABLO SIERRA Rep #:[id number] : 1950 74 From: Fco Monroy MD [...] sent in because of malfunctioning gastrostomy tube. 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 Apparently their blood pressure readings were elevated and reason the chief complaint is hypertension. Per the assisted report to nursing staff he was sent in because of gastrostomy tube problems. Reading summary of care patient with history of COPD/asthma with chronic hypoxemic respiratory failure on 2 L by nasal cannula. There was no mention of aspiration or risks of aspiration. Prior similar symptoms: No Recent Illness/Hospitalization: Yes [facility] Medical History Acute CVA (cerebrovascular accident) Aphasia [...] D3) 50 50 mcg feeding tube DA KATHERINE 12/24/24 01/05/25 Rx mcg (2,000 unit) tablet SUPPLEMENT 30 days #30 tabs clonidine 0.2 mg/24 hr weekly 0.2 mg transdermal Q7D # 0 ea 12/24/24 Unknown Rx transdermal patch ergocalciferol (vitamin D2) 1,250 1,250 mcg feeding tu be Q7D 12/24/24 12/13/24 08:58 Rx mcg (50,000 unit) capsule (Vitamin SUPPLEMENT #0 caps D2) finasteride 5 mg tablet 5 mg feeding tube DAILY pros jasos 12/24/24 12/13/24 08:58 Rx 30 days #30 [...] 76.7 H Lymph % (Auto) 14.2 L [place] % (Auto) 7.0 Eos % (Auto) 1.2 [...] pCO2 47.9 H ABG pO2 52 L Dann Test Positive O2 Delivery Device Cannula Vent [...] IMPRESSION: COPD. No acute findings. Reading Location: [id number] X-Ray 01/05/25 13:02 IMPRESSION: A PEG tube tip is projected in the region of the stomach. Contrast material is identified within the stomach. There is no extravasation of the contrast. Reading Location: [id number] Radiology report was reviewed. 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 Call [facility] ([phone]) or report to the closest Emergency Room. Call 911 if necessary. 01/05/25 1341 <Electronically signed by Fco Monroy MD> Cosigner Signature (if applicable): CC: Dr. Lorraine Mena MD ~ Signed [facility] Work Phone: 1(245) 589-214607-20-2025 Radiology Diagnostic study [facility]07-20-2025 Radiology Diagnostic study [facility]07-18-2025 Discharge summary [facility] Note Date/Time January 03, 2025 8:01 am [facility] Medical Records Department [address] [place] [address] Emergency Department Summary 01/03/25 MR#: [id number] Acct: [id number] Name: PEDRO PABLO SIERRA Rep #:[id number] : 1950 74 From: Arnulfo Zhao DO [...] with isopropanol, and inserted a replacement 20 Azerbaijani gastrostomy tube with a 20 cc balloon [...] not ambulatory anyway and already in a assisted. 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 FDC states that this morning he fell out [...] further history based on his aphasia/mute status [facility] Medical History Acute CVA (cerebrovascular [...] D3) 50 50 mcg feeding tube DA KATHERINE 12/24/24 12/13/24 Rx mcg (2,000 unit) tablet [...] is at his baseline mental status per assisted. Nursing reported he fell out of bed [...] the patient's PEG tube is a 20 Azerbaijani. Therefore we will obtain a similar size in the ER and attempt to replace the PEG tube at this time. The replacement of the PEG tube and imaging studies are still pending and therefore patient be signed out to Dr. Jauregui. I do feel that if all images arenegative patient will be safe to return to the assisted once the PEG tube has been replaced. 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 Call [facility] ([phone]) or report to the closest Emergency Room. Call 911 if necessary. 01/03/25 0658 <Electronically signed by Arnulfo Zhao DO> Cosigner Signature (if applicable): CC: Dr. Daija Morton MD ~ Signed [facility] Work Phone: 1(429) 672-558007-18-2025 Radiology Diagnostic study [facility]07-18-2025 Radiology Diagnostic study [facility]07-18-2025 Radiology Diagnostic study [facility] 01-03-2025 Radiology Diagnostic study [facility]07-10-2025 Discharge summary Author Shilpa Contreras [facility] Note Date/Time December 26, 2024 3:43 pm [facility] Medical Records Department [address] [place] [address] Discharge Summary 12/26/24 1533 MR#: [id number] Acct: [id number] Name: PEDRO PABLO SIERRA Shannan Rep #:[id number] : 1950 74 From: Shilpa Contreras MD PCP: Dr. Daija Morton MD Status:ADM I N Location: [place] [address] Providers Date of Admission: 12/18/24 Date of Discharge: 12/26/24 Primary Care Physician: Dr. Daija Morton MD Consultations 12/19/24 15:57 Consult: Gastroenterology Routine Consulting Provider: Dave Gastroenterology Reason for Consult: Dysphagia-PEG EMERGENT Consult: [...] he had reported lacking healthcare power of receiving and processing supervisor and living will but had noted he [...] Acute COPD Exacerbation who re-presentED to the [facility] ED on 12/17/24 w/ severe dysarthria [...] s/p PEG placement with following transition from [place] ASA->eliquis, d/c IV keppra and resume liquid [...] 84.7 H, Lymph % (Auto) 6.5 L, [place] % (Auto) 7.8, Eos % (Auto) 0.2, [...] continued nutrition consultation and evaluation at the senior care facility for ongoing assessments and alteration to [...] Privileges] - (Follow-up with Neurology, may see SHAKER PLATE OPERATOR within 2-4 weeks of discharge.) Disposition Disposition (needs filled in before D/C Order can be placed): Nursing Home Facility Charges/Coding Visit Charges Inpatient E&M: 26639 Disch Hosp >30min 12/26/24 1543 <Electronically signed by Shilpa Contreras MD> Cosigner Signature (if applicable): CC: Dr. Shilpa Contreras MD; Dr. Daija Morton MD~ Signed [facility] Work Phone: 1(999) 571-385907-10-2025 [facility]07-10-2025 Telephone encounter Note* Telephone Encounter - Anjel Braga APRN.CNP - 12/26/2024 3:13 PM EDT Admitted to hospital. Will review further at follow up. Anjel Braga APRN.CNP [facility]07-10-2025 Miscellaneous Notes* Telephone Encounter - Anjel Braga APRN.CNP - 12/26/2024 3:13 PM EDT Admitted to hospital. Will review further at follow up. Anjel Braga APRN.CNP [facility] Progress note Author Shilpa Contreras [facility] Note Date/Time December 26, 2024 12:3 1pm [facility] Medical Records Department [address] [place] [address] Progress Note - Hospitalist 12/26/24 0700 MR#: [id number] Acct: [id number] Name: PEDRO PABLO SIERRA Rep #:[id number] : 1950 74 From: Shilpa Contreras MD PCP: Dr. Daija Morton MD Status:ADM I N Location: [place] [address] Reason for Visit Reason for Visit: Diagnoses Cerebral infarction, unspecified (12/18/24) Facial weakness (12/18/24) Aphasia (12/18/24) Subjective Subjective Patient with no acute events overnight per nursing report. Blood pressure has vacillated but improved with initiation of low-dose hydralazine per PEG. Given continued clinical stability and at this point only awaiting senior care facility discussed with nursing staff and patient [...] Acute COPD Exacerbation who re-presents to the [facility] ED on 12/17/24 w/ severe dysarthria [...] s/p PEG placement with following transition from [place] ASA->eliquis,d/c IV keppra and resume liquid carbamazepine, [...] he had reported lacking healthcare power of receiving and processing supervisor and living will but had noted he would wanthis ex- Joseph be his medical decision-maker at that time if absolutely necessary. Full Code status. Charges/Coding Visit Charges Inpatient E&M: 99177 Subs Hosp L2 NIHSS NIHSS Nursing Documentation NIHSS Nursing Documentation: NIHSS: Ischemic Stroke/TIA Start: 12/17/24 18:52 Text: For PCU Patients: NIH and Neuro Check every 4 Status: Complete hours, PRN and with change in RN caregiver. Freq: Q12 Protocol: Activity Type Activity Date Activity User E-sign Co-sign Detail Recorded Client Recorded Date Recorded By Document 12/22/24 08:15 DS [id number] 12/22/24 08:19 DS 12/22/24 08:15 NIH Stroke [...] Signed [facility] Work Phone: 1(246) 617-749307-09-2025 Progress note Author Shilpa Contreras [facility] Note Date/Time December 25, 2024 1:49p m [facility] Medical Records Department [address] [place] [address] Progress Note - Hospitalist 12/25/24 0652 MR#: [id number] Acct: [id number] Name: PEDRO PABLO SIERRA Rep #:[id number] : 1950 74 From: Shilpa Contreras MD PCP: Dr. Daija Morton MD Status:ADM I N Location: [place] [address] Reason for Visit Reason for Visit: Diagnoses [...] 82.3 H, Lymph % (Auto) 8.0 L, [place] % (Auto) 8.4, Eos % (Auto) 0.3, [...] Acute COPD Exacerbation who re-presents to the [facility] ED on 12/17/24 w/ severe dysarthria [...] s/p PEG placement with following transition from [place] ASA->eliquis,d/c IV keppra and resume liquid carbamazepine, [...] he had reported lacking healthcare power of receiving and processing supervisor and living will but had noted he would wanthis ex- Joseph be his medical decision-maker at that time if absolutely necessary. Full Code status. Charges/Coding Visit Charges Inpatient E&M: 32776 Subs Hosp L2 NIHSS NIHSS Nursing Documentation NIHSS Nursing Documentation: NIHSS: Ischemic Stroke/TIA Start: 12/17/24 18:52 Text: For PCU Patients: NIH and Neuro Check every 4 Status: Complete hours, PRN and with change in RN caregiver. Freq: Q12 Protocol: Activity Type Activity Date Activity User E-sign Co-sign Detail Recorded Client Recorded Date Recorded By Document 12/22/24 08:15 DS [id number] 12/22/24 08:19 DS 12/22/24 08:15 NIH Stroke [...] [facility] Work Phone: 1(160) 569-303607-08-2025 Progress note Author Paulino Friend [facility] Note Date/Time December 24, 2024 5:58p m [facility] Medical Records Department [address] [place] [address] Progress Note 12/24/24 1755 MR#: [id number] Acct: [id number] Name: PEDRO PABLO SIERRA Rep #:[id number] : 1950 74 From: Paulino Henderson DO PCP: Dr. Daija Morton MD Status:ADM I N Location: [place] [address] Progress Note Patient is still tolerating PEG [...] and anticoagulation therapy. Visit Charges Inpatient E&M: 89083 Subs Hosp L2 12/24/24 <Electronically signed by Paulino Henderson DO> Paulino Henderson DO Cosigner Signature (if applicable): CC: ~ Signed [facility] Work Phone: 1(428) 630-340507-08-2025 Discharge summary Author Shilpa Contreras [facility] Note Date/Time December 24, 2024 5:11p m [facility] Medical Records Department [address] [place] [address] Transfer to Extended Care MR#: [id number] Acct: [id number] Name: PEDRO PABLO SIERRA Rep #:[id number] : 1950 74 From: Shilpa Contreras MD PCP: Dr. Daija Morton MD Status:ADM I N Certification of patient admission REQUIRED AT TIME OF ADMISSION. I CERTIFY THAT POST-HOSPITAL ECF SERVICES ARE REQUIRED TO BE GIVEN ON AN IN-PATIENT BASIS BECAUSE OF THE ABOVE NAMED PATIENT'S NEED FOR [facility] CARE ON A CONTINUING BASIS FOR THE [...] Acute COPD Exacerbation who re-presents to the [facility] ED on 12/17/24 w/ severe dysarthria [...] s/p PEG placement thus will transition from [place] ASA->eliquis, d/c IV keppra and resume liquid [...] he had reported lacking healthcare power of receiving and processing supervisor and living will but had noted he [...] advanced diet as tolerated to cardiac per ENTRY LEVEL ACCOUNTANT recommendations. 2. Will order to start at [...] continued nutrition consultation and evaluation at the senior care facility for ongoing assessments and alteration to [...] Privileges] - (Follow-up with Neurology, may see SHAKER PLATE OPERATOR within 2-4 weeks of discharge.) Disposition Disposition (needs filled in before D/C Order can be placed): Nursing Home Facility 12/24/24 1711 <Electronically signed by Shilpa [...] ~ [facility] Work Phone: [phone]) 384-336907-08-2025 Progress note Author Maya [facility] Note Date/Time December 24, 2024 2:56p m [facility] Medical Records Department [address] [place] [address] Progress Note - Neurology 12/24/24 1451 MR#: [id number] Acct: [id number] Name: PEDRO PABLO SIERRA Rep #:[id number] : 1950 74 From: Maya Talamantes MD PCP: Dr. Daija Morton MD Status:ADM I N Location: [place] [address] Objective Data Objective Data Vital Signs: Vital [...] 82.4 H, Lymph % (Auto) 8.5 L, [place] % (Auto) 7.7, Eos % (Auto) 0.4, [...] bc patient does not cooperate- swats the heating repair technician away. Neurological examination limited by decreased [...] Date Recorded By Document 12/22/24 08:15 DS [id number] 12/22/24 08:19 DS 12/22/24 08:15 NIH Stroke [...] Inattention: 0 - No abnormality Total: 12/24/24 1456 <Electronically signed by Maya Talamantes MD> Cosigner Signature (if applicable): CC: ~ Signed [facility] Work Phone: 1(771) 887-150407-08-2025 Progress note Author Shilpa Contreras [facility] Note Date/Time December 24, 2024 2:46p m [facility] Medical Records Department [address] [place] [address] Progress Note - Hospitalist 12/24/24705 MR#: [id number] Acct: [id number] Name: PEDRO PABLO SIERRA Rep #:[id number] : 1950 74 From: Shilpa Contreras MD PCP: Dr. Daija Morton MD Status:ADM I N Location: [place] [address] Reason for Visit Reason for Visit: Diagnoses [...] 82.4 H, Lymph % (Auto) 8.5 L, [place] % (Auto) 7.7, Eos % (Auto) 0.4, [...] Acute COPD Exacerbation who re-presents to the [facility] ED on 12/17/24 w/ severe dysarthria [...] s/p PEG placement thus will transition from [place] ASA->eliquis, d/c IV keppra and resume liquid carbamazepine,transition to HTN regimen per PEG, addback statin per PEG. Awaiting senior care facility placement pre-CERT for transition as clinically [...] he had reported lacking healthcare power of receiving and processing supervisor and living will but had noted he would wanthis ex- Joseph be his medical decision-maker at that time if absolutely necessary. Patient and daughter have been working with healthcare team closely and patient is maintained full code at this time. Charges/Coding Visit Charges Inpatient E&M: 26465 Subs Hosp L3 NIHSS NIHSS Nursing Documentation NIHSS Nursing Documentation: NIHSS: Ischemic Stroke/TIA Start: 12/17/24 18:52 Text: For PCU Patients: NIH and Neuro Check every 4 Status: Complete hours, PRN and with change in RN caregiver. Freq: Q12 Protocol: Activity Type Activity Date Activity User E-sign Co-sign Detail Recorded Client Recorded Date Recorded By Document 12/22/24 08:15 DS [id number] 12/22/24 08:19 DS 12/22/24 08:15 NIH Stroke [...] Signed [facility] Work Phone: [phone]) [phone] Telephone encounter Note* Telephone Encounter - Daija Morton MD - 12/24/2024 2:09 PM EDT Noted. Daija Tripp MD [facility]07-08-2025 Miscellaneous Notes* Telephone Encounter - Daija Morton MD - 12/24/2024 2:09 PM EDT Noted. Daija Tripp MD * Telephone Encounter - Kelly Zelaya RN - 12/17/2024 2:[address] [facility] called in to give an update on [...] use. Kelly Zelaya RN documented [facility] Consult note Author Kyaw Borrego [facility] Note Date/Time December 23, 2024 3:51p [facility] Medical Records Department [address] [place] [address] Anesthesia Postop Eval II 12/23/24 1551 MR#: [id number] Acct: [id number] Name: PEDRO PABLO SIERRA Rep #:[id number] : 1950 74 From: Kyaw Borrego MD PCP: Dr. Daija Morton MD Status:ADM I N Y Race: C Location: [place] [address] 1-1 Anesthesia Postop Eval I Sum Postop Eval Completion status Anesthesia document: Postop Eval 1 completed: Yes Anesthesia Postop Eval I Summary Anesthesia Postop Eval I Summary: Anesthesia Postop Eval I: Assessment Summary Airway patent Yes 12/23/24 15:30 COPYRIGHT [email or web address].CSIR Spontaneous unlabored Yes 12/23/24 15:30 COPYRIGHT CLERK.CSIR respirations Mental status nausea No 12/23/24 15:30 COPYRIGHT CLERK.CSIR Vomiting No 12/23/24 15:30 COPYRIGHT CLERK.CSIR Anesthesia Postop Eval I: Fluid Summary Crystalloid volume administer 200 12/23/24 15:30 COPYRIGHT CLERK.CSIR (ml) Colloids volume administered ( ml) Blood Product volume administered (ml) Total IV fluid infused 200 12/23/24 15:30 COPYRIGHT CLERK.CSIR Anesthesia Postop Eval I: Summary Notes Anesthesia Complication No 12/23/24 15:30 COPYRIGHT CLERK.CSIR Anesthesia Complication Comment: Post-operative progress note Anesthesia: Postop Eval II Evaluation Mental status: Awake Pain Level: 0 nausea: No Vomiting: No 12/23/24 1551 <Electronically signed by Kyaw Borrego MD > Date _ Kyaw Ramirezigner Signature: Date CC: ~ Signed [facility] Work Phone: 1([phone]) 390-541707-07-2025 Consult note Author [facility] Note Date/Time December 23, 2024 3:32p m [facility] Medical Records Department [address] [place] [address] Anesthesia Postop Eval I 12/23/24 1530 MR#: [id number] Acct: [id number] Name: PEDRO PABLO SIERRA Rep #:[id number] : 1950 74 From: Rocío Barrios CRNA PCP: Dr. Daija Morton MD Status:ADM I N Y Race: C Location: [place] [address] 06-19 Anesthesia: Postop Eval I Current Vital [...] 12/23/24 1532 <Electronically signed by Rocío smith COPYRIGHT CLERK> Date _ Rocío Barrios CRNA Cosigner Signature: Date CC: ~ Signed [facility] Work Phone: 1(658) 693-434507-07-2025 Progress note Author Shilpa Contreras [facility] Note Date/Time December 23, 2024 3:24p m [facility] Medical Records Department [address] [place] [address] Progress Note - Hospitalist 12/23/24 0719 MR#: [id number] Acct: [id number] Name: PEDRO PABLO SIERRA Rep #:[id number] : 1950 74 From: Shilpa Contreras MD PCP: Dr. Daija Morton MD Status:ADM I N Location: [place] [address] Reason for Visit Reason for Visit: Diagnoses [...] Acute COPD Exacerbation who re-presents to the [facility] ED on 12/17/24 w/ severe dysarthria [...] Acute COPD Exacerbation who re-presents to the [facility] ED on 12/17/24 w/ severe dysarthria [...] prophylaxis. Once patient requires PEG tube and senior care facility placement is pre-CERT obtained will transition [...] DVT prophylaxis: As noted currently maintained on [place] aspirin therapy, planinitiation of Eliquis therapy following PEG tube placement likely 12/25/2019 5 AM. #17. CODE status: From previous discussions with patient he had reported lacking healthcare power of receiving and processing supervisor and living will but had noted he would wanthis ex- Joseph be his medical decision-maker at that time if absolutely necessary. Patient and daughter have been working with healthcare team closely and patient is maintained full code at this time. Charges/Coding Visit Charges Inpatient E&M: 63189 Subs Hosp L3 NIHSS NIHSS Nursing Documentation NIHSS Nursing Documentation: NIHSS: Ischemic Stroke/TIA Start: 12/17/24 18:52 Text: For PCU Patients: NIH and Neuro Check every 4 Status: Complete hours, PRN and with change in RN caregiver. Freq: Q12 Protocol: Activity Type Activity Date Activity User E-sign Co-sign Detail Recorded Client Recorded Date Recorded By Document 12/22/24 08:15 DS [id number] 12/22/24 08:19 DS 12/22/24 08:15 NIH Stroke [...] 1524 <Electronically signed by Shilpa Contreras MD> Rasheeda Signature (if applicable): CC: ~ Signed [facility] Work Phone: 1(697) 464-340307-07-2025 Procedure [facility] 12-23-2024 Procedure [facility]07-07-2025 Progress note Author Paulino Friend [facility] Note Date/Time December 23, 2024 2:46p m [facility] Medical Records Department [address] [place] [address] Progress Note 12/23/24 1445 MR#: [id number] Acct: [id number] Name: PEDRO PABLO SIERRA Rep #:[id number] : 1950 74 From: Paulino Henderson DO PCP: Dr. Daija Morton MD Status:ADM I N Location: [place] [address] Progress Note Patient with esophageal dysphagia. She [...] ASA of 3. Visit Charges Inpatient E&M: 94047 Subs Hosp L2 12/23/24 1446 <Electronically signed by Paulino Friend DO> Paulino Friend DO Cosigner Signature (if applicable): CC: ~ Signed [facility] Work Phone: 1(754) 449-252907-07-2025 Consult note Author Kyaw Borrego [facility] Note Date/Time December 23, 2024 2:02p m [facility] Medical Records Department [address] [place] [address] Pre-Anesthesia Evaluation 12/23/24 1400 MR#: [id number] Acct: [id number] Name: PEDRO PABLO SIERRA Rep #:[id number] : 1950 74 From: Kyaw Borrego MD PCP: Dr. Daija Morton MD Status:ADM I N Y Race: C Location: [place] [address] 1-1 ASA Classification* ASA Classification ASA Classification: [...] 02/20/24 TSH 3.380 uIU/mL (0.300-4.200) 12/17/24 16:00 07/07/13 COAG PT 12.8 SECONDS (11.7-14.9) 12/17/24 16:00 Pre-Assessment Diagnosis/Proposed Procedure Planned Operative Procedure(s): EGD, PEG placement. 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 - spring tester: Anesthesia History - spring tester Hx Hospitalization Yes 08/08/20 16:59 Any Problems [...] take am of surgery PONV PONV - spring tester: PONV - spring tester Female HX of Motion Sickness HX of N/V After Surgery Non-Smoker Duration of Surgery greater than 60 minutes Number of Risk Factors PONV Score Height & Weight Height & Weight: Anesthesia: Height & Weight Height 5 ft 8 in 12/23/24 09:50 Weight: 73 kg 12/23/24 09:50 Body Mass Index (BMI) 24.5 12/23/24 09:00 Respiratory Assessment Respiratory Assessment - spring tester: Respiratory Tract Infection Hx - spring tester Hx Respiratory Tract Infection No 12/23/24 09:15 STOP Sleep Apnea STOP Sleep Apnea - spring tester: STOP Sleep Apnea - spring tester Hx Hypertension Yes 12/23/24 09:06 Hx Sleep [...] Tobacco Use History Tobacco Use History - spring tester: Tobacco Use History - spring tester Tobacco Use Cigarettes 12/23/24 09:06 Smoking Status Current every day smoker 12/23/24 09:06 Hx Tobacco Use Yes 12/17/24 20:07 Years Smoking Packs Smoked per Day Smoking Cessation Date was within the last 15 years Hx Smoking Cessation Date Hx Smoking Cessation No 12/23/24 09:06 Counseling Hematologic Medial History Hematologic Hx - spring tester: Hematologic 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 Hx of Blood Transfusion Hx of Transfusion in last 3 Months Date of Last Transfusion (if within last 3 months) Ever experience any problems with transfusion(s)? Specify any problems Hx of Preganancy in last 3 Months Nurse Filling Out Transfusion & Questions: Date: Time: Patient unable to answer at Yes 12/17/24 20:07 this time (ie. confused, unrespo /Reproduction History /Reproductive History - spring tester: /Reproductive Hx- spring tester Hx Now Gestational Age (in weeks): EDC: [...] mls @ 15 mls/hr 12/17/24 19:51 IV .[id number] PRN Saline Flush Sodium Chloride 250 mls @ 15 mls/hr 12/17/24 19:51 IV .[id number] PRN Additional IVPB Infusion Levetiracetam 1,000 mg in 100 mls @ 400 mls/hr 12/17/24 22:00 12/23/24 09:45 IV Infused Q12 LEON Infusion Pantoprazole Sodium 40 mg/ 100 mls @ 300 mls/hr 12/19/24 10:00 12/23/24 09:26 Sodium Chloride IV Infused Q24 LEON Infusion Lactated Ringer's 1,000 mls @ 75 mls/hr 12/18/24 15:30 12/23/24 13:10 IV 0 mls/hr .[id number] LEON Infusion Thiamine HCl 250 mg/ Sodium [...] 40 Mg Tablet PO Not Given DAILY [facility] Senna/Docusate Sodium 1 tablet 12/17/24 18:52 Senna/Docusate Sodium 1 Tablet PO BID PRN PRN Constipation Sertraline HCl 100 mg 12/18/24 10:00 12/18/24 09:52 Sertraline 100 Mg Tablet PO Not Given DAILY [facility] Sodium Chloride 10 - 40 ml 12/17/24 19:51 12/23/24 13:09 0.9% Saline Lock 10 Ml Syringe IV 10 ml UD PRN Administration SALINE FLUSH Tamsulosin HCl 0.4 mg 12/18/24 22:00 Tamsulosin Hcl 0.4 Mg Capsule PO QHS [facility] Medical History Weakness Debility Failure [...] [facility] Work Phone: 1(139) 489-723007-07-2025 Hospital Discharge instructionsAdditional Instructions ADDITIONAL DISCHARGE INSTRUCTIONS/INFORMATION: [...] continued nutrition consultation and evaluation at the senior care facility for ongoing assessments and alteration to [...] which appears recent baseline. Date of Discharge: 12/26/24[facility] Work Phone: 1(252) 758-148907-06-2025 Progress note Author Lisha Talamantes [facility] Note Date/Time December 22, 2024 3:35p gabino [facility] Medical Records Department [address] [place] [address] Progress Note - Hospitalist 12/22/24 1534 MR#: [id number] Acct: [id number] Name: PEDRO PABLO SIERRA R Rep #:[id number] : 1950 74 From: Lisha Talamantes DO PCP: Dr. Daija Morton MD Status:ADM I N Location: [place] [address] Hospitalist Note Extensive conversation with POA's at [...] neurological status and they voiced understanding. 12/22/24 153 <Electronically signed by Lisha Talamantes DO> Cosigner Signature (if applicable): CC: ~ Signed [facility] Work Phone: 1(869) 698-669307-06-2025 Progress note Author Lisha Talamantes [facility] Note Date/Time December 22, 2024 1:13p m [facility] Medical Records Department [address] [place] [address] Progress Note - Hospitalist 12/22/24 0733 MR#: [id number] Acct: [id number] Name: PEDRO PABLO SIERRA R Rep #:[id number] : 1950 74 From: Lisha Talamantes DO PCP: Dr. Daija Morton MD Status:ADM I N Location: [place] [address] Reason for Visit Reason for Visit: facial [...] Full code Charges/Coding Visit Charges Inpatient E&M: 63163 Subs Hosp L2 NIHSS NIHSS Nursing Documentation NIHSS Nursing Documentation: NIHSS: Ischemic Stroke/TIA Start: 12/17/24 18:52 Text: For PCU Patients: NIH and Neuro Check every 4 Status: Active hours, PRN and with change in RN caregiver. Freq: Q12 Protocol: Activity Type Activity Date Activity User E-sign Co-sign Detail Recorded Client Recorded Date Recorded By Document 12/21/24 21:20 [id number] 12/21/24 21:19 12/21/24 21:20 NIH Stroke Scale [...] Signed [facility] Work Phone: 1(966) 823-957107-06-2025 Progress note Author Maya Talamantes [facility] Note Date/Time December 22, 2024 9:18a m [facility] Medical Records Department [address] [place] [address] Progress Note - Neurology 12/22/24913 MR#: [id number] Acct: [id number] Name: PEDRO PABLO SIERRA Rep #:[id number] : 1950 74 From: Maya Talamantes MD PCP: Dr. Daija Morton MD Status:ADM I N Location: [place] [address] Objective Data Objective Data Vital Signs: Vital [...] anti-platelet med (Asa) for now. 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 will need AC for Afib stroke prevention [...] Date Recorded By Document 12/22/24 08:15 DS [id number] 12/22/24 08:19 DS 12/22/24 08:15 NIH Stroke [...] Signed [facility] Work Phone: 1(767) 809-431807-05-2025 Progress note Author Maya Talamantes [facility] Note Date/Time December 21, 2024 1:50p m [facility] Medical Records Department [address] [place] [address] Progress Note - Neurology 12/21/24 1336 MR#: [id number] Acct: [id number] Name: PEDRO PABLO SIERRA Rep #:[id number] : 1950 74 From: Maya Talamantes MD PCP: Dr. Daija Morton MD Status:ADM I N Location: [place] [address] Objective Data Objective Data Vital Signs: Vital [...] 75.1 H, Lymph % (Auto) 14.2 L, [place] % (Auto) 8.5, Eos % (Auto) 1.2, [...] Continue daily anti-platelet med (Asa) for now. intermediate will need AC for Afib stroke prevention [...] Date Recorded By Document 12/21/24 08:35 DS [id number] 12/21/24 11:09 DS 12/21/24 08:35 NIH Stroke [...] Signed [facility] Work Phone: 1(416) 125-277807-05-2025 Progress note Author Lisha Talamantes [facility] Note Date/Time December 21, 2024 1:11p m [facility] Medical Records Department [address] [place] [address] Progress Note - Hospitalist 12/21/24 1243 MR#: [id number] Acct: [id number] Name: PEDRO PABLO SIERRA Rep #:[id number] : 1950 74 From: Lisha Talamantes DO PCP: Dr. Daija Morton MD Status:ADM I N [facility] Reason for Visit Reason for Visit: Aphasia/Facial [...] 75.1 H, Lymph % (Auto) 14.2 L, [place] % (Auto) 8.5, Eos % (Auto) 1.2, [...] Full code Charges/Coding Visit Charges Inpatient E&M: 20704 Subs Hosp L2 NIHSS NIHSS Nursing Documentation NIHSS Nursing Documentation: NIHSS: Ischemic Stroke/TIA Start: 12/17/24 18:52 Text: For PCU Patients: NIH and Neuro Check every 4 Status: Active hours, PRN and with change in RN caregiver. Freq: Q12 Protocol: Activity Type Activity Date Activity User E-sign Co-sign Detail Recorded Client Recorded Date Recorded By Document 12/21/24 08:35 DS [id number] 12/21/24 11:09 DS 12/21/24 08:35 NIH Stroke [...] Signed [facility] Work Phone: 1(516) 881-827907-04-2025 Progress note Author Lisha Talamantes [facility] Note Date/Time December 20, 2024 12:05 pm [facility] Medical Records Department [address] [place] [address] Progress Note - Hospitalist 12/20/24 0717 MR#: [id number] Acct: [id number] Name: PEDRO PABLO SIERRA Rep #:[id number] : 1950 74 From: Lisha Talamantes DO PCP: Dr. Daija Morton MD Status:ADM I N Location: [place] [address] Reason for Visit Reason for Visit: Difficulty [...] 79.1 H, Lymph % (Auto) 9.9 L, [place] % (Auto) 8.5, Eos % (Auto) 1.2, [...] in the right maxillary sinus. Reading Location: [facility] Physical Exam Const alert, no apparent distress [...] Full code Charges/Coding Visit Charges Inpatient E&M: 24486 Subs Hosp L2 NIHSS NIHSS Nursing Documentation NIHSS Nursing Documentation: NIHSS: Ischemic Stroke/TIA Start: 12/17/24 18:52 Text: For PCU Patients: NIH and Neuro Check every 4 Status: Active hours, PRN and with change in RN caregiver. Freq: [id number] Protocol: Activity Type Activity Date Activity User E-sign Co-sign Detail Recorded Client Recorded Date Recorded By Document 12/20/24 05:53 MB [id number] 12/20/24 05:55 MB 12/20/24 05:53 NIH Stroke [...] Signed [facility] Work Phone: 1(940) 640-385607-04-2025 Progress note Author René Reno [facility] Note Date/Time December 20, 2024 11:53 am [facility] Medical Records Department [address] [place] [address] Progress Note - Neurology 12/20/24 1107 MR#: [id number] Acct: [id number] Name: PEDRO PABLO SIERRA Rep #:[id number] : 1950 74 From: René Damon PCP: Dr. Daija Morton MD Status:ADM I N Location: [place] [address] Objective Data Objective Data Vital Signs: Vital [...] 79.1 H, Lymph % (Auto) 9.9 L, [place] % (Auto) 8.5, Eos % (Auto) 1.2, [...] awaiting PEG tube on Monday, failed with ENTRY LEVEL ACCOUNTANT. No NGT. EEG Results Procedure Details EEG [...] an high risk of future embolic events ([id number] 10, HASBLED 4). His risk of a [...] goal <7, BP goal is 120/80 -recommend PT/OT/ENTRY LEVEL ACCOUNTANT consult. Will likely need PEG. consider NGT for alterative access in the meantime #seizure -recommend routine EEG as his aphasia does seen to be out of proportion to his infarct burden. would want to ensure no NCSE -it appears he was switched from CBZ to keppra during this admission. Ok to continue keppra snf if tolerating without adverse effects or recurrent seizures. ] NIHSS NIHSS Nursing Documentation NIHSS Nursing Documentation: NIHSS: Ischemic Stroke/TIA Start: 12/17/24 18:52 Text: For PCU Patients: NIH and Neuro Check every 4 Status: Active hours, PRN and with change in RN caregiver. Freq: Q12 Protocol: Activity Type Activity Date Activity User E-sign Co-sign Detail Recorded Client Recorded Date Recorded By Document 12/20/24 09:41 [id number] 12/20/24 09:46 12/20/24 09:41 NIH Stroke Scale [...] Signed [facility] Work Phone: 1(222) 438-438907-03-2025 Progress note Author Lisha Talamantes [facility] Note Date/Time December 19, 2024 4:09p m [facility] Medical Records Department [address] [place] [address] Progress Note - Hospitalist 12/19/24 0810 MR#: [id number] Acct: [id number] Name: PEDRO PABLO SIERRA Rep #:[id number] : 1950 74 From: Lisha Talamantes DO PCP: Dr. Daija Morton MD Status:ADM I N Location: [place] [address] Reason for Visit Reason for Visit: Difficulty [...] 81.3 H, Lymph % (Auto) 9.0 L, [place] % (Auto) 6.6, Eos % (Auto) 1.9, [...] in the right maxillary sinus. Reading Location: [facility] Physical Exam Const alert, no apparent distress [...] Full code Charges/Coding Visit Charges Inpatient E&M: 29573 Subs Hosp L2 NIHSS NIHSS Nursing Documentation NIHSS Nursing Documentation: NIHSS: Ischemic Stroke/TIA Start: 12/17/24 18:52 Text: For PCU Patients: NIH and Neuro Check every 4 Status: Active hours, PRN and with change in RN caregiver. Freq: [id number] Protocol: Activity Type Activity Date Activity User E-sign Co-sign Detail Recorded Client Recorded Date Recorded By Document 12/19/24 07:15 [id number] 12/19/24 07:43 12/19/24 07:15 NIH Stroke Scale [...] Signed [facility] Work Phone: 1(813) 390-749907-02-2025 Progress note Author Lisha Talamantes [facility] Note Date/Time December 18, 2024 2:59p m [facility] Medical Records Department [address] [place] [address] Progress Note - Hospitalist 12/18/24 1445 MR#: [id number] Acct: [id number] Name: PEDRO PABLO SIERRA Shannan Rep #:[id number] : 1950 74 From: Lisha Talamantes DO PCP: Dr. Daija Morton MD Status:ADM I NO Location: [place] [address] Reason for Visit Reason for Visit: Diagnoses [...] (Auto) 77.5 H, Lymph % (Auto) 12.1 L,[place] % (Auto) 7.8, Eos % (Auto) 1.1, [...] as noted. Findings were called to the [facility] emergency department on 12/17/2024 at 4:35 p.m. Reading Location: [id number] Head/Neck CTA 12/17/24 15:53 IMPRESSION: Right ICA stenosis of 75%. Left ICA stenosis of 50%. Additional atherosclerosis as above. Biapical pulmonary scarring and emphysema. Reading Location: [id number] Chest X-Ray 12/17/24 15:54 IMPRESSION: Hyperaerated lungs which can suggest COPD. Stable scarring. Reading Location: [id number] Echocardiogram 12/18/24 07:27 Interpretation Summary Technically difficult [...] Full code Charges/Coding Visit Charges Inpatient E&M: 24179 Subs Hosp L2 NIHSS NIHSS Nursing Documentation NIHSS Nursing Documentation: NIHSS: Ischemic Stroke/TIA Start: 12/17/24 18:52 Text: For PCU Patients: NIH and Neuro Check every 4 Status: Active hours, PRN and with change in RN caregiver. Freq: [id number] Protocol: Activity Type Activity Date Activity User E-sign Co-sign Detail Recorded Client Recorded Date Recorded By Document 12/18/24 13:40 [id number] 12/18/24 13:43 12/18/24 13:40 NIH Stroke Scale [...] e [Total] -Coma Scale Total 12 12/18/24 1450 <Electronically signed by Lisha Talamantes DO> Cosigner Signature (if applicable): CC: ~ Signed [facility] Work Phone: 1(373) 890-782307-02-2025 Consult note Author Amy Chun [facility] Note Date/Time December 18, 2024 1:13p m [facility] Medical Records Department [address] [place] [address] Consultation - Neurology 12/18/24 1249 MR#: [id number] Acct: [id number] Name: PEDRO PABLO SIERRA Rep #:[id number] : 1950 74 From: Amy Chun MD PCP: Dr. 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 Please call with questions HPI Consult Data Date of Consult: 12/18/24 HPI Narrative HPI Narrative: PEDRO PABLO SIERRA, is a 74 M who presents who presented to [facility] on 12/17/[facility]24 with dysarthria and right-sided [...] stroke. Unfortunately, he was outside the window forTK. He has history of A-fib and was [...] stenosis of 50%, no other acute findings. [facility] Medical History Weakness Debility Failure to [...] 200 mg 200 mg PO Q12H SEIZURES 03/11/0912/13/24 08:55 History tablet,extended release,12 hr cholecalciferol (vitamin [...] History household members: family housing: other details: [employer] 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 Smoking Status: Current [...] (Auto) 77.5 H, Lymph % (Auto) 12.1 L,[place] % (Auto) 7.8, Eos % (Auto) 1.1, [...] as noted. Findings were called to the [facility] emergency department on 12/17/2024 at 4:35 p.m. Reading Location: [id number] Head/Neck CTA 12/17/24 15:53 IMPRESSION: Right ICA stenosis of 75%. Left ICA stenosis of 50%. Additional atherosclerosis as above. Biapical pulmonary scarring and emphysema. Reading Location: [id number] Chest X-Ray 12/17/24 15:54 IMPRESSION: Hyperaerated lungs which can suggest COPD. Stable scarring. Reading Location: [id number] Active Medications Active Medications Active Medications: Current [...] 75 Mg Tablet PO Not Given DAILY [facility] Finasteride 5 mg 12/18/24 10:00 12/18/24 [...] mls @ 15 mls/hr 12/17/24 19:51 IV .[id number] PRN Saline Flush Sodium Chloride 250 mls @ 15 mls/hr 12/17/24 19:51 IV .[id number] PRN Additional IVPB Infusion Levetiracetam 1,000 mg [...] 100 Mg Tablet PO Not Given DAILY [facility] Sodium Chloride 10 - 40 ml 12/17/24 19:51 12/18/24 10:33 0.9% Saline Lock 10 Ml Syringe IV 10 ml UD PRN Administration SALINE FLUSH Tamsulosin HCl 0.4 mg 12/18/24 22:00 Tamsulosin Hcl 0.4 Mg Capsule PO QHS [facility] NIHSS NIHSS Nursing Documentation NIHSS Nursing Documentation: NIHSS: Ischemic Stroke/TIA Start: 12/17/24 18:52 Text: For PCU Patients: NIH and Neuro Check every 4 Status: Active hours, PRN and with change in RN caregiver. Freq: [id number] Protocol: Activity Type Activity Date Activity User E-sign Co-sign Detail Recorded Client Recorded Date Recorded By Document 12/18/24 10:30 [id number] 12/18/24 10:48 12/18/24 10:30 NIH Stroke Scale [...] Signed [facility] Work Phone: 1(346) 792-448907-01-2025 History and physical [facility] Note Date/Time December 17, 2024 7:17p m [facility] Medical Records Department [address] [place] [address] H&P Exam - Hospitalist 12/17/24 1736 MR#: [id number] Acct: [id number] Name: PEDRO PABLO SIERRA Rep #:[id number] : 1950 74 From: Roman randall DO PCP: Dr. Daija Ganta, MD Status:ADM I NO Location: [facility] DSX630- 1 HPI - General General Date of [...] time. Will be admitted for further management. [facility] Medical History Weakness Debility Failure to [...] (Auto) 77.5 H, Lymph % (Auto) 12.1 L,[place] % (Auto) 7.8, Eos % (Auto) 1.1, Baso % (Auto) 1.1 H, Absolute Neuts (auto) 6.6, Absolute Lymphs (auto) 1.03, Nucleated RBC % 0 Imaging Radiology Impression Brain CT 12/17/24 15:53 IMPRESSION: 1. Cerebral atrophy. 2. No evidence of acute intracranial pathology. 3. Other findings as noted. Findings were called to the [facility] emergency department on 12/17/2024 at 4:35 p.m. Reading Location: [id number] Head/Neck CTA 12/17/24 15:53 IMPRESSION: Right ICA stenosis of 75%. Left ICA stenosis of 50%. Additional atherosclerosis as above. Biapical pulmonary scarring and emphysema. Reading Location: [id number] Chest X-Ray 12/17/24 15:54 IMPRESSION: Hyperaerated lungs which can suggest COPD. Stable scarring. Reading Location: [id number] Assessment & Plan Assessment/Plan (1) Acute CVA [...] on chart review, on carotid ultrasound from 2016 there was mild tomoderate stenosis noted bilaterally. [...] 75 minutes. Charges/Coding Visit Charges Inpatient E&M: 55142 Init Hosp L3 12/17/241916 <Electronically signed by Roman Patel DO> Cosigner Signature (if applicable): CC: Dr. Roman Patel DO; Dr. Daija Morton MD~ Signed [facility] Work Phone: 1(884) 927-240207-01-2025 Discharge summary Author Seth Pritchard [facility] Note Date/Time December 17, 2024 5:41p m [facility] Medical Records Department [address] [place] [address] Emergency Department Summary 12/17/24 MR#: [id number] Acct: [id number] Name: PEDRO PABLO SIERRA Rep #:[id number] : 1950 74 From: Seth Pritchard DO [...] was around noon according to at home. [facility] Medical History Weakness Debility Failure [...] 200 mg 200 mg PO Q12H SEIZURES 03/0 11/0912/13/24 08:55 History tablet,extended release,12 hr cholecalciferol [...] 77.5 H Lymph % (Auto) 12.1 L [place] % (Auto) 7.8 Eos % (Auto) 1.1 Baso % (Auto) 1.1 H Absolute Neuts (auto) 6.6 Absolute Lymphs (auto) 1.03 Nucleated RBC % 0 Radiography Diagnostic Testing: Clinical Impression(s) from Imaging Studies Brain CT 12/17/24 15:53 IMPRESSION: 1. Cerebral atrophy. 2. No evidence of acute intracranial pathology. 3. Other findings as noted. Findings were called to the [facility] emergency department on 12/17/2024 at 4:35 p.m. Reading Location: [id number] Head/Neck CTA 12/17/24 15:53 IMPRESSION: Right ICA stenosis of 75%. Left ICA stenosis of 50%. Additional atherosclerosis as above. Biapical pulmonary scarring and emphysema. Reading Location: [id number] Chest X-Ray 12/17/24 15:54 IMPRESSION: Hyperaerated lungs which can suggest COPD. Stable scarring. Reading Location: [id number] Discharge Plan Triage Chief Complaint: Stroke Alert [...] MD [Primary Care Provider] - Print Language: [place] Disposition Disposition: Acute Care Hospital [facility] What to do if you have Problems For any increased pain, shortness of breath, bleeding, nausea or vomiting, chestpain, or any unexpected problems, contact your Primary Care Provider. Call [facility] ([phone]) or report to the closest Emergency Room. Call 911 if necessary. 12/17/24 3841 <Electronically signed by Seth Pritchard DO> Cosigner Signature (if applicable): CC: Dr. Daija Morton MD ~ Signed [facility] Work Phone: 1(361) 495-837407-01-2025 Radiology Diagnostic study [facility]07-01-2025 Radiology Diagnostic study [facility] Work Phone: 1(725) 610-486207-01-2025 Radiology Diagnostic study [facility]07-01-2025 Telephone encounter Note* Telephone Encounter - Kelly Zelaya RN - 12/17/2024 2:20 PM EDT [facility] called in to give an update on the Pt. She states he was just [facility] for respiratory failure, now he is [...] would like to use. Kelly Zelaya RN [facility]07-01-2025 Discharge summary Author Seth Pritchard [facility] Note Date/Time December 17, 2024 5:41p m [facility] Medical Records Department [address] [place] [address] Emergency Department Summary 12/17/24 MR#: [id number] Acct: [id number] Name: PEDRO PABLO SIERRA Rep #:[id number] : 1950 74 From: Seth Pritchard DO [...] was around noon according to at home. [facility] Medical History Weakness Debility Failure [...] 77.5 H Lymph % (Auto) 12.1 L [place] % (Auto) 7.8 Eos % (Auto) 1.1 Baso % (Auto) 1.1 H Absolute Neuts (auto) 6.6 Absolute Lymphs (auto) 1.03 Nucleated RBC % 0 Radiography Diagnostic Testing: Clinical Impression(s) from Imaging Studies Brain CT 12/17/24 15:53 IMPRESSION: 1. Cerebral atrophy. 2. No evidence of acute intracranial pathology. 3. Other findings as noted. Findings were called to the [facility] emergency department on 12/17/2024 at 4:35 p.m. Reading Location: [id number] Head/Neck CTA 12/17/24 15:53 IMPRESSION: Right ICA stenosis of 75%. Left ICA stenosis of 50%. Additional atherosclerosis as above. Biapical pulmonary scarring and emphysema. Reading Location: [id number] Chest X-Ray 12/17/24 15:54 IMPRESSION: Hyperaerated lungs which can suggest COPD. Stable scarring. Reading Location: [id number] Discharge Plan Triage Chief Complaint: Stroke Alert [...] MD [Primary Care Provider] - Print Language: [place] Disposition Disposition: Acute Care Hospital [facility] What to do if you have Problems For any increased pain, shortness of breath, bleeding, nausea or vomiting, chestpain, or any unexpected problems, contact your Primary Care Provider. Call [facility] ([phone]) or report to the closest Emergency Room. Call 911 if necessary. 12/17/24 1741 <Electronically signed by Seth Pritchrad DO> Cosigner Signature (if applicable): CC: Dr. Daija Morton MD ~ Signed [facility] Work Phone: 1(363) 695-650106-30-2025 Discharge summary Author Lisha Talamantes [facility] Note Date/Time December 16, 2024 12:5 3pm [facility] Medical Records Department [address] [place] [address] Discharge Summary 12/16/24 1137 MR#: [id number] Acct: [id number] Name: PEDRO PABLO SIERRA Shannan Rep #:[id number] : 1950 74 From: Lisha Talamantes DO PCP: Dr. Daija Morton MD Status:ADM I N Location: [place] [address] Providers Date of Admission: 12/13/24 Date of [...] hypoxic respiratory failure requiring 2 Lat baseline [id number]. Patient reported that about the last 2 days priorto presentation he had increasing fatigue, malaise, and severe wheezing with tightness in his chest. He feels that the heat is predisposing him to exacerbation of his COPD. He was recently raised from [facility] and has been at home. [...] Self Care Charges/Coding Visit Charges Inpatient E&M: 83356 Disch Hosp >30min 12/16/24 1253 <Electronically signed by Lisha Talamantes DO> Cosigner Signature (if applicable): CC: Dr. Daija Morton MD; Dr. Lisha Talamantes DO~ Signed [facility] Work Phone: 1(392) 229-836406-30-2025 Hospital Discharge instructionsAdditional Instructions 1. Avoid being out in the heat and humidity. Try to be in an air conditioned environment as much as possible. If you must go out try to do so in the am or pm Date of Discharge: 12/16/24[facility] Work Phone: 1(108) 718-791506-30-2025 [facility]06-30-2025 Telephone encounter Note* Telephone Encounter [...] days. Every AM and at bedtime. Natalie Jon Pss December 16, 2024 8:47 AM [facility]06-30-2025 Miscellaneous Notes* Telephone Encounter - Natalie [...] 16, 2024 8:47 AM [facility] Progress note Author Lisha Talamantes [facility] Note Date/Time December 15, 2024 1:21 pm [facility] Medical Records Department [address] [place] [address] Progress Note - Hospitalist 12/15/24 0743 MR#: [id number] Acct: [id number] Name: PEDRO PABLO SIERRA Shannan Rep #:[id number] : 1950 74 From: Lisha Talamantes DO PCP: Dr. Daija Morton MD Status:ADM I N Location: [place] [address] Reason for Visit Reason for Visit: Shortness [...] 83.3 H, Lymph % (Auto) 9.8 L, [place] % (Auto) 6.3, Eos % (Auto) 0.0, [...] Full code Charges/Coding Visit Charges Inpatient E&M: 95919 Subs Hosp L2 12/15/24 1321 <Electronically signed by Lisha Talamantes DO> Cosigner Signature (if applicable): CC: ~ [facility]igned [facility] [facility] Work Phone: 1(502) 148-475006-28-2025 Progress note Author Lisha Talamantes [facility] Note Date/Time December 14, 2024 3:55 pm [facility] Medical Records Department [address] [place] [address] Progress Note - Hospitalist 12/14/24 0810 MR#: [id number] Acct: [id number] Name: PEDRO PABLO SIERRA Rep #:[id number] : 1950 74 From: Lisha Talamantes DO PCP: Dr. Daija Morton MD Status:ADM I N Location: [place] [address] Reason for Visit Reason for Visit: Shortness [...] % (Auto) 67.3, Lymph % (Auto) 19.5, [place]% (Auto) 8.9, Eos % (Auto) 3.0, Baso [...] 79.3 H, Lymph % (Auto) 15.0 L, [place] % (Auto) 5.3, Eos % (Auto) 0.0, [...] significant change since last exam. Reading Location: [facility] Physical Exam Const alert, oriented x3, no [...] Full code Charges/Coding Visit Charges Inpatient E&M: 55868 Subs Hosp L2 12/14/24 1555 <Electronically signed by Lisha Talamantes DO> Cosigner Signature (if applicable): CC: ~ Signed [facility] Work Phone: 1(786) 400-137906-28-2025 History and physical note Author Shilpa Contreras [facility] Note Date/Time December 14, 2024 12:2 3am [facility] Medical Records Department [address] [place] [address] H&P Exam - Hospitalist 12/13/241948 MR#: [id number] Acct: [id number] Name: PEDRO PABLO SIERRA Rep #:[id number] : 1950 74 From: Shilpa Contreras MD PCP: Dr. Daija Morton MD Status:ADM I N Location: [place] [address] HPI - General General Date of Admission: [...] component requested ABG and will trial BiPAP. [facility] Medical History Weakness Debility Failure to [...] % (Auto) 67.3, Lymph % (Auto) 19.5, [place]% (Auto) 8.9, Eos % (Auto) 3.0, Baso [...] significant change since last exam. Reading Location: [id number] Assessment & Plan Assessment/Plan (1) COPD exacerbation: [...] 0.9. #16. 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 Discussed CODE status at length including difference between FULL code, DNR-CCA and DNR-CC status. Following discussions about the differences in these status, requested Full Code status. [facility] Care[employer]anning Face to Face Time: 16 minutes. Charges/Coding Visit Charges Inpatient E&M: 48438 Init Hosp L3 Procedures Hospitalists Procedures: 63154 Advncd Care Plan 30 Min 12/13/242049 <Electronically [...] Signed [facility] Work Phone: 1(520) 579-411906-28-2025 Discharge summary Author Charis Aaron [facility] Note Date/Time December 13, 2024 10:4 1pm [facility] Medical Records Department [address] [place] [address] Emergency Department Summary 12/13/24 MR#: [id number] Acct: [id number] Name: MARIELAPEDRO PABLO Rep #:[id number] : 1950 74 From: Charis Walker DO PCP: Dr. Daija Morton MD Status:ADM I N Location: [place] [address] HPI History of Present Illness Chief Complaint: [...] Recently returned home from being in a assisted for a time 1 week ago. [facility] Medical History Compression fx, lumbar [...] % (Auto) 67.3 Lymph % (Auto) 19.5 [place] % (Auto) 8.9 Eos % (Auto) 3.0 [...] significant change since last exam. Reading Location: [facility] 1 view chest x-ray obtained interpreted by [...] MD [Primary Care Provider] - Print Language: [place]ican Disposition Disposition: Acute Care Hospital [facility] What to do if you have Problems For any increased pain, shortness of breath, bleeding, nausea or vomiting, chestpain, or any unexpected problems, contact your Primary Care Provider. Call [facility] ([phone]) or report to the closest Emergency Room. Call 911 if necessary. 12/13/242240 <Electronically signed by Charis Walker DO> Cosigner Signature (if applicable): CC: Dr. Daija Morton MD ~ Signed [facility] Work Phone: 1(875) 979-538006-27-2025 Evaluation note* Diagnosis Onset Date Resolution Status [...] 2:58pm Facial droop deleted December 18 2:58pm [facility] Work Phone: 1(385) 709-568506-27-2025 Evaluation note* Diagnosis Onset Date Resolution Status Admit Date Acute on chronic respiratory failure with hypoxia and hypercapnia resolved December 13, 2024 8:07pm COPD exacerbation resolved December 132024 8:07pm Acute on chronic respiratory failure with hypoxia and hypercapnia resolved December 18, 2024 2 :58pm COPD exacerbation resolved December d2024 2:58pm Acute CVA (cerebrovascular accident) inactive December 18, 2024 2 :58pm Aphasia inactive December 18, 2024 2:58pm Hypertension inactive December 18 2:58pm Facial droop deleted December 18 2:58pm Aspiration into respiratory tract acute January 05, 2025 1:36pm Bronchospasm, acute acute January 05, 2025 1:36pm [facility] Work Phone: 1(281) 970-273506-27-2025 Evaluation note* Diagnosis Onset Date Resolution Status [...] tube malfunction acute January 05, 2025 1:36pm [facility] Work Phone: 1(552) 934-292306-27-2025 Evaluation note* Diagnosis Onset Date Resolution Status [...] tube malfunction inactive January 05, 2025 1:36pm [facility] Work Phone: 1(604) 203-420706-27-2025 Evaluation note* Diagnosis Onset Date Resolution Status [...] 8:48am Seizure disorder acute January 232024 10:27am [facility] Work Phone: 1(873) 958-558206-27-2025 Evaluation note* Diagnosis Onset Date Resolution Status [...] January 23, 2025 10:27am 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 January 23, 2025 10:27am CVA (cerebral vascular accident) acu te January 23, 2025 10:27am Debility acute January 23 10:27am History of atrial fibrillation acute January 23, 2025 10:27am Seizure disorder acute January 232024 10:27am Multiple falls inactive January 10:27am [facility] Work Phone: 1([phone]) 458-318606-27-2025 History and physical note [facility] Medical Records Department [address] [place] [address] H&P Exam - Hospitalist 12/13/241948 MR#: [id number] Acct: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 130s/60s, lactate 2.5-->0.9 Plan: -BP remains stable in 110s-130s/50s since IV fluids and 2 units of blood -hold beta joel Dysuria 02/07/2016 06/08/2023 Overview: Assessment: -Patient reports symptoms of UTI diagnosed at [facility] on 02/01/16 (confirmed via CareEverywhere) and [...] vascular disease) 04/22/2014 06/08/2023 Overview: Assessment: Left METAL FURNITURE GLAZIER endart with bovine 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 Due to occlusion of this repair 2 days later, he returned to the OR and underwent a Left EIA to METAL FURNITURE GLAZIER bypass with 7mm PTFE distally with retrograde [...] the last week. 2013. Went to the [facility] ER and was observed his Hb [...] for aorto-occlusive critical limb ischemia, CAD previous KS, DM, HTN, DLD, COPD, UC/IBD on sulfasalazine [...] Neurotoin BID at home Patient started on [place] postoperatively, pain controlled at time of discharge. Urinary retention 10/25/2013 08/18/2022 Overview: Home med: tamsulosin Plan: -Resume Tamsulosin DISPOSITION AND FOLLOW-UP 10/25/2013 Overview: CM following for d/c needs. PT/OT to evaluate-->recommending home PT 07/08/2014 Discharge with home care today Ischemia of extremity 10/14/20132013 Overview: - admitted to [facility] vascular surgery twice in October 2013, s/p left femoral endarterectomy with patch, US guided access RCFA, L profundaplasty, RUFUS recanalization & stenting, CRISPIN stenting on 10/23/13 for aorto-occlusive critical limb ischemia - S/p 11/12-11/19/13 [facility] Vascular Surgery for aortoiliac thrombosis (BLE [...] of this encounter (statuses as of 08/07/2023) [facility] History of Past illness Narrative* Problem [...] Overview: Admission: -became hypotensive on admission to [facility] (109/45 vs. 181/75 in ED) -1 L bolus given, BP improved to 130s/60s, lactate 2.5-->0.9 Plan: -BP remains stable in 110s-130s/50s since IV fluids and 2 units of blood -hold beta joel Dysuria 02/07/2016 06/08/2023 Overview: Assessment: -Patient reports symptoms of UTI diagnosed at [facility] on 02/01/16 (confirmed via CareEverywhere) and [...] vascular disease) 04/22/2014 06/08/2023 Overview: Assessment: Left METAL FURNITURE GLAZIER endart with bovine 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 Due to occlusion of this repair 2 days later, he returned to the OR and underwent a Left EIA to METAL FURNITURE GLAZIER bypass with 7mm PTFE distally with retrograde [...] the last week. 2013. Went to the [facility] ER and was observed his Hb [...] for aorto-occlusive critical limb ischemia, CAD previous KS, DM, HTN, DLD, COPD, UC/IBD on sulfasalazine [...] Neurotoin BID at home Patient started on [place] postoperatively, pain controlled at time of discharge. Urinary retention 10/25/2013 08/18/2022 Overview: Home med: tamsulosin Plan: -Resume Tamsulosin DISPOSITION AND FOLLOW-UP 10/25/2013 Overview: CM following for d/c needs. PT/OT to evaluate-->recommending home PT 07/08/2014 Discharge with home care today Ischemia of extremity 10/14/20132013 Overview: - admitted to [facility] vascular surgery twice in October 2013, s/p left femoral endarterectomy with patch, US guided access RCFA, L profundaplasty, RUFUS recanalization & stenting, CRISPIN stenting on 10/23/13 for aorto-occlusive critical limb ischemia - S/p 11/12-11/19/13 [facility] Vascular Surgery for aortoiliac thrombosis (BLE [...] of this encounter (statuses as of 08/21/2023) [facility] Miscellaneous Notes* Telephone Encounter - Anjel [...] you. Bessy Freed RN documented in this encounterMiddletown Hospital05-27-2021 Miscellaneous Notes* Telephone Encounter - Daija Morton MD - 11/12/2020 2:17 PM EDT Noted * Telephone Encounter - Gabino Delgado RN - 11/12/2020 1:15 PM EDT Phoned [facility]. Spoke with pharmacist, Jonathon, given verbal coumadin change: on November 10, 2020, patient is to take 7.5 mg daily for the next 2 weeks, then re-check INR. Given [facility]'s phone # to Jonathon. Phoned Love to let her know [facility] is aware of changed coumadin dose. She is going to call [facility], to see if they are bringing patient new pill pack. Reports she was going to discharge patient today, but isgoing to talk to her supervisor machine setter about keeping patient on [facility] for one more visit. * Telephone Encounter - Gabino Delgado RN - 11/12/2020 12:50 PM EDT [facility]- [facility]- reports patient's new coumadin instructions have not been updated to [facility]. Attempted to call [facility]- they are closed for lunch. Will try again when they re-open at 1 pm. documented in this encounterMiddletown Hospital05-26-2021 History of Present illness Narrative* Nahed [...] 11, 2020 10:32 AM documented in this encounterMiddletown Hospital04-24-2020 History of Past illness Narrative* Problem [...] Neurotoin BID at home Patient started on [place] postoperatively, pain controlled at time of discharge. Ischemia of extremity 10/14/2013 02/10/2014 Overview: - admitted to [facility] vascular surgery twice in October 2013, [...] of this encounter (statuses as of 09/14/2021) [facility] History of Past illness Narrative* Problem [...] Neurotoin BID at home Patient started on [place] postoperatively, pain controlled at time of discharge. Ischemia of extremity 10/14/2013 02/10/2014 Overview: - admitted to [facility] vascular surgery twice in October 2013, s/p left femoral endarterectomy with patch, US guided access RCFA, L profundaplasty, RUFUS recanalization & stenting, CRISPIN stenting on 10/23/13 for aorto-occlusive critical limb ischemia - S/p 11/12-11/19/13 [facility] Vascular Surgery for aortoiliac thrombosis (BLE [...] of this encounter (statuses as of 09/15/2021) [facility]2020 History of Past illness Narrative* Problem [...] Neurotoin BID at home Patient started on [place] postoperatively, pain controlled at time of discharge. Ischemia of extremity 10/14/2013 02/10/2014 Overview: - admitted to [facility] vascular surgery twice in October 2013, [...] of this encounter (statuses as of 09/15/2021) [facility]2020 History of Past illness Narrative* Problem [...] 1.29 x 3.31cm. 07/08/2014 Hematoma stable, continue ftáima wrap at discharge Ulcerative colitis 06/24/2014 11/09/2018 [...] Neurotoin BID at home Patient started on [place] postoperatively, pain controlled at time of discharge. Ischemia of extremity 10/14/2013 02/10/2014 Overview: - admitted to [facility] vascular surgery twice in October 2013, [...] of this encounter (statuses as of 09/16/2021) [facility]2020 History of Past illness Narrative* Problem [...] Neurotoin BID at home Patient started on [place] postoperatively, pain controlled at time of discharge. Ischemia of extremity 10/14/2013 02/10/2014 Overview: - admitted to [facility] vascular surgery twice in October 2013, [...] of this encounter (statuses as of 09/16/2021) [facility] History of Past illness Narrative* Problem [...] Neurotoin BID at home Patient started on [place] postoperatively, pain controlled at time of discharge. Ischemia of extremity 10/14/2013 02/10/2014 Overview: - admitted to [facility] vascular surgery twice in October 2013, s/p left femoral endarterectomy with patch, US guided access RCFA, L profundaplasty, RUFUS recanalization & stenting, CRISPIN stenting on 10/23/13 for aorto-occlusive critical limb ischemia - S/p 11/12-11/19/13 [facility] Vascular Surgery for aortoiliac thrombosis (BLE [...] of this encounter (statuses as of 09/17/2021) [facility] History of Past illness Narrative* Problem [...] Neurotoin BID at home Patient started on [place] postoperatively, pain controlled at time of discharge. Ischemia of extremity 10/14/2013 02/10/2014 Overview: - admitted to [facility] vascular surgery twice in October 2013, [...] of this encounter (statuses as of 09/17/2021) [facility] History of Past illness Narrative* Problem [...] Neurotoin BID at home Patient started on [place] postoperatively, pain controlled at time of discharge. Ischemia of extremity 10/14/2013 02/10/2014 Overview: - admitted to [facility] vascular surgery twice in October 2013, s/p left femoral endarterectomy with patch, US guided access RCFA, L profundaplasty, RUFUS recanalization & stenting, CRISPIN stenting on 10/23/13 for aorto-occlusive critical limb ischemia - S/p 11/12-11/19/13 [facility] Vascular Surgery for aortoiliac thrombosis (BLE [...] of this encounter (statuses as of 09/17/2021) [facility] History of Past illness Narrative* Problem [...] Neurotoin BID at home Patient started on [place] postoperatively, pain controlled at time of discharge. Ischemia of extremity 10/14/2013 02/10/2014 Overview: - admitted to [facility] vascular surgery twice in October 2013, [...] of this encounter (statuses as of 09/18/2021) [facility] History of Past illness Narrative* Problem [...] Neurotoin BID at home Patient started on [place] postoperatively, pain controlled at time of discharge. Ischemia of extremity 10/14/2013 02/10/2014 Overview: - admitted to [facility] vascular surgery twice in October 2013, s/p left femoral endarterectomy with patch, US guided access RCFA, L profundaplasty, RUFUS recanalization & stenting, CRISPIN stenting on 10/23/13 for aorto-occlusive critical limb ischemia - S/p 11/12-11/19/13 [facility] Vascular Surgery for aortoiliac thrombosis (BLE [...] of this encounter (statuses as of 09/20/2021) [facility] History of Past illness Narrative* Problem [...] Neurotoin BID at home Patient started on [place] postoperatively, pain controlled at time of discharge. Ischemia of extremity 10/14/2013 02/10/2014 Overview: - admitted to [facility] vascular surgery twice in October 2013, [...] of this encounter (statuses as of 09/21/2021) [facility] History of Past illness Narrative* Problem [...] Neurotoin BID at home Patient started on [place] postoperatively, pain controlled at time of discharge. Ischemia of extremity 10/14/2013 02/10/2014 Overview: - admitted to [facility] vascular surgery twice in October 2013, s/p left femoral endarterectomy with patch, US guided access RCFA, L profundaplasty, RUFUS recanalization & stenting, CRISPIN stenting on 10/23/13 for aorto-occlusive critical limb ischemia - S/p 11/12-11/19/13 [facility] Vascular Surgery for aortoiliac thrombosis (BLE [...] of this encounter (statuses as of 09/22/2021) [facility] History of Past illness Narrative* Problem [...] Neurotoin BID at home Patient started on [place] postoperatively, pain controlled at time of discharge. [...] of this encounter (statuses as of 09/29/2021) [facility] History of Past illness Narrative* Problem [...] Neurotoin BID at home Patient started on [place] postoperatively, pain controlled at time of discharge. Ischemia of extremity 10/14/2013 02/10/2014 Overview: - admitted to [facility] vascular surgery twice in October 2013, s/p left femoral endarterectomy with patch, US guided access RCFA, L profundaplasty, RUFUS recanalization & stenting, CRISPIN stenting on 10/23/13 for aorto-occlusive critical limb ischemia - S/p 11/12-11/19/13 [facility] Vascular Surgery for aortoiliac thrombosis (BLE [...] of this encounter (statuses as of 10/04/2021) [facility] History of Past illness Narrative* Problem [...] Neurotoin BID at home Patient started on [place] postoperatively, pain controlled at time of discharge. Ischemia of extremity 10/14/2013 02/10/2014 Overview: - admitted to [facility] vascular surgery twice in October 2013, s/p left femoral endarterectomy with patch, US guided access RCFA, L profundaplasty, RUFUS recanalization & stenting, CRISPIN stenting on 10/23/13 for aorto-occlusive critical limb ischemia - S/p 11/12-11/19/13 [facility] Vascular Surgery for aortoiliac thrombosis (BLE [...] of this encounter (statuses as of 10/06/2021) [facility]2020 History of Past illness Narrative* Problem [...] Neurotoin BID at home Patient started on [place] postoperatively, pain controlled at time of discharge. Ischemia of extremity 10/14/2013 02/10/2014 Overview: - admitted to [facility] vascular surgery twice in October 2013, s/p left femoral endarterectomy with patch, US guided access RCFA, L profundaplasty, RUFUS recanalization & stenting, CRISPIN stenting on 10/23/13 for aorto-occlusive critical limb ischemia - S/p 11/12-11/19/13 [facility] Vascular Surgery for aortoiliac thrombosis (BLE [...] of this encounter (statuses as of 10/07/2021) [facility] History of Past illness Narrative* Problem [...] Neurotoin BID at home Patient started on [place] postoperatively, pain controlled at time of discharge. Ischemia of extremity 10/14/2013 02/10/2014 Overview: - admitted to [facility] vascular surgery twice in October 2013, s/p left femoral endarterectomy with patch, US guided access RCFA, L profundaplasty, RUFUS recanalization & stenting, CRISPIN stenting on 10/23/13 for aorto-occlusive critical limb ischemia - S/p 11/12-11/19/13 [facility] Vascular Surgery for aortoiliac thrombosis (BLE [...] of this encounter (statuses as of 10/07/2021) [facility] History of Past illness Narrative* Problem [...] Neurotoin BID at home Patient started on [place] postoperatively, pain controlled at time of discharge. Ischemia of extremity 10/14/2013 02/10/2014 Overview: - admitted to [facility] vascular surgery twice in October 2013, s/p left femoral endarterectomy with patch, US guided access RCFA, L profundaplasty, RUFUS recanalization & stenting, CRISPIN stenting on 10/23/13 for aorto-occlusive critical limb ischemia - S/p 11/12-11/19/13 [facility] Vascular Surgery for aortoiliac thrombosis (BLE [...] of this encounter (statuses as of 10/08/2021) [facility] History of Past illness Narrative* Problem [...] Neurotoin BID at home Patient started on [place] postoperatively, pain controlled at time of discharge. Ischemia of extremity 10/14/2013 02/10/2014 Overview: - admitted to [facility] vascular surgery twice in October 2013, s/p left femoral endarterectomy with patch, US guided access RCFA, L profundaplasty, RUFUS recanalization & stenting, CRISPIN stenting on 10/23/13 for aorto-occlusive critical limb ischemia - S/p 11/12-11/19/13 [facility] Vascular Surgery for aortoiliac thrombosis (BLE [...] of this encounter (statuses as of 10/13/2021) [facility] History of Past illness Narrative* Problem [...] Neurotoin BID at home Patient started on [place] postoperatively, pain controlled at time of discharge. [...] of this encounter (statuses as of 10/13/2021) [facility]2020 History of Past illness Narrative* Problem [...] Neurotoin BID at home Patient started on [place] postoperatively, pain controlled at time of discharge. Ischemia of extremity 10/14/2013 02/10/2014 Overview: - admitted to [facility] vascular surgery twice in October 2013, [...] of this encounter (statuses as of 10/14/2021) [facility]2020 History of Past illness Narrative* Problem [...] Neurotoin BID at home Patient started on [place] postoperatively, pain controlled at time of discharge. Ischemia of extremity 10/14/2013 02/10/2014 Overview: - admitted to [facility] vascular surgery twice in October 2013, s/p left femoral endarterectomy with patch, US guided access RCFA, L profundaplasty, RUFUS recanalization & stenting, CRISPIN stenting on 10/23/13 for aorto-occlusive critical limb ischemia - S/p 11/12-11/19/13 [facility] Vascular Surgery for aortoiliac thrombosis (BLE [...] of this encounter (statuses as of 10/18/2021) [facility]2020 History of Past illness Narrative* Problem [...] Neurotoin BID at home Patient started on [place] postoperatively, pain controlled at time of discharge. Ischemia of extremity 10/14/2013 02/10/2014 Overview: - admitted to [facility] vascular surgery twice in October 2013, s/p left femoral endarterectomy with patch, US guided access RCFA, L profundaplasty, RUFUS recanalization & stenting, CRISPIN stenting on 10/23/13 for aorto-occlusive critical limb ischemia - S/p 11/12-11/19/13 [facility] Vascular Surgery for aortoiliac thrombosis (BLE [...] of this encounter (statuses as of 10/21/2021) [facility] History of Past illness Narrative* Problem [...] Neurotoin BID at home Patient started on [place] postoperatively, pain controlled at time of discharge. Ischemia of extremity 10/14/2013 02/10/2014 Overview: - admitted to [facility] vascular surgery twice in October 2013, s/p left femoral endarterectomy with patch, US guided access RCFA, L profundaplasty, RUFUS recanalization & stenting, CRISPIN stenting on 10/23/13 for aorto-occlusive critical limb ischemia - S/p 11/12-11/19/13 [facility] Vascular Surgery for aortoiliac thrombosis (BLE [...] of this encounter (statuses as of 10/21/2021) [facility] History of Past illness Narrative* Problem [...] Neurotoin BID at home Patient started on [place] postoperatively, pain controlled at time of discharge. Ischemia of extremity 10/14/2013 02/10/2014 Overview: - admitted to [facility] vascular surgery twice in October 2013, s/p left femoral endarterectomy with patch, US guided access RCFA, L profundaplasty, RUFUS recanalization & stenting, CRISPIN stenting on 10/23/13 for aorto-occlusive critical limb ischemia - S/p 11/12-11/19/13 [facility] Vascular Surgery for aortoiliac thrombosis (BLE [...] of this encounter (statuses as of 10/22/2021) [facility]2020 History of Past illness Narrative* Problem [...] Neurotoin BID at home Patient started on [place] postoperatively, pain controlled at time of discharge. Ischemia of extremity 10/14/2013 02/10/2014 Overview: - admitted to [facility] vascular surgery twice in October 2013, s/p left femoral endarterectomy with patch, US guided access RCFA, L profundaplasty, RUFUS recanalization & stenting, CRISPIN stenting on 10/23/13 for aorto-occlusive critical limb ischemia - S/p 11/12-11/19/13 [facility] Vascular Surgery for aortoiliac thrombosis (BLE [...] of this encounter (statuses as of 10/22/2021) [facility] History of Past illness Narrative* Problem [...] Neurotoin BID at home Patient started on [place] postoperatively, pain controlled at time of discharge. Ischemia of extremity 10/14/2013 02/10/2014 Overview: - admitted to [facility] vascular surgery twice in October 2013, s/p left femoral endarterectomy with patch, US guided access RCFA, L profundaplasty, RUFUS recanalization & stenting, CRISPIN stenting on 10/23/13 for aorto-occlusive critical limb ischemia - S/p 11/12-11/19/13 [facility] Vascular Surgery for aortoiliac thrombosis (BLE [...] of this encounter (statuses as of 10/22/2021) [facility] History of Past illness Narrative* Problem [...] Neurotoin BID at home Patient started on [place] postoperatively, pain controlled at time of discharge. Ischemia of extremity 10/14/2013 02/10/2014 Overview: - admitted to [facility] vascular surgery twice in October 2013, s/p left femoral endarterectomy with patch, US guided access RCFA, L profundaplasty, RUFUS recanalization & stenting, CRISPIN stenting on 10/23/13 for aorto-occlusive critical limb ischemia - S/p 11/12-11/19/13 [facility] Vascular Surgery for aortoiliac thrombosis (BLE [...] of this encounter (statuses as of 10/27/2021) [facility] History of Past illness Narrative* Problem [...] Neurotoin BID at home Patient started on [place] postoperatively, pain controlled at time of discharge. Ischemia of extremity 10/14/2013 02/10/2014 Overview: - admitted to [facility] vascular surgery twice in October 2013, s/p left femoral endarterectomy with patch, US guided access RCFA, L profundaplasty, RUFUS recanalization & stenting, CRISPIN stenting on 10/23/13 for aorto-occlusive critical limb ischemia - S/p 11/12-11/19/13 [facility] Vascular Surgery for aortoiliac thrombosis (BLE [...] of this encounter (statuses as of 11/08/2021) [facility] History of Past illness Narrative* Problem [...] Neurotoin BID at home Patient started on [place] postoperatively, pain controlled at time of discharge. Ischemia of extremity 10/14/2013 02/10/2014 Overview: - admitted to [facility] vascular surgery twice in October 2013, s/p left femoral endarterectomy with patch, US guided access RCFA, L profundaplasty, RUFUS recanalization & stenting, CRISPIN stenting on 10/23/13 for aorto-occlusive critical limb ischemia - S/p 11/12-11/19/13 [facility] Vascular Surgery for aortoiliac thrombosis (BLE [...] of this encounter (statuses as of 11/08/2021) [facility] History of Past illness Narrative* Problem [...] Neurotoin BID at home Patient started on [place] postoperatively, pain controlled at time of discharge. Ischemia of extremity 10/14/2013 02/10/2014 Overview: - admitted to [facility] vascular surgery twice in October 2013, s/p left femoral endarterectomy with patch, US guided access RCFA, L profundaplasty, RUFUS recanalization & stenting, CRISPIN stenting on 10/23/13 for aorto-occlusive critical limb ischemia - S/p 11/12-11/19/13 [facility] Vascular Surgery for aortoiliac thrombosis (BLE [...] of this encounter (statuses as of 11/11/2021) [facility] History of Past illness Narrative* Problem [...] Neurotoin BID at home Patient started on [place] postoperatively, pain controlled at time of discharge. Ischemia of extremity 10/14/2013 02/10/2014 Overview: - admitted to [facility] vascular surgery twice in October 2013, s/p left femoral endarterectomy with patch, US guided access RCFA, L profundaplasty, RUFUS recanalization & stenting, CRISPIN stenting on 10/23/13 for aorto-occlusive critical limb ischemia - S/p 11/12-11/19/13 [facility] Vascular Surgery for aortoiliac thrombosis (BLE [...] of this encounter (statuses as of 11/12/2021) [facility] History of Past illness Narrative* Problem [...] Neurotoin BID at home Patient started on [place] postoperatively, pain controlled at time of discharge. Ischemia of extremity 10/14/2013 02/10/2014 Overview: - admitted to [facility] vascular surgery twice in October 2013, s/p left femoral endarterectomy with patch, US guided access RCFA, L profundaplasty, RUFUS recanalization & stenting, CRISPIN stenting on 10/23/13 for aorto-occlusive critical limb ischemia - S/p 11/12-11/19/13 [facility] Vascular Surgery for aortoiliac thrombosis (BLE [...] of this encounter (statuses as of 11/16/2021) [facility] History of Past illness Narrative* Problem [...] Neurotoin BID at home Patient started on [place] postoperatively, pain controlled at time of discharge. Ischemia of extremity 10/14/2013 02/10/2014 Overview: - admitted to [facility] vascular surgery twice in October 2013, s/p left femoral endarterectomy with patch, US guided access RCFA, L profundaplasty, RUFUS recanalization & stenting, CRISPIN stenting on 10/23/13 for aorto-occlusive critical limb ischemia - S/p 11/12-11/19/13 [facility] Vascular Surgery for aortoiliac thrombosis (BLE [...] of this encounter (statuses as of 11/17/2021) [facility] History of Past illness Narrative* Problem [...] Neurotoin BID at home Patient started on [place] postoperatively, pain controlled at time of discharge. Ischemia of extremity 10/14/2013 02/10/2014 Overview: - admitted to [facility] vascular surgery twice in October 2013, s/p left femoral endarterectomy with patch, US guided access RCFA, L profundaplasty, RUFUS recanalization & stenting, CRISPIN stenting on 10/23/13 for aorto-occlusive critical limb ischemia - S/p 11/12-11/19/13 [facility] Vascular Surgery for aortoiliac thrombosis (BLE [...] of this encounter (statuses as of 11/17/2021) [facility] History of Past illness Narrative* Problem [...] Neurotoin BID at home Patient started on [place] postoperatively, pain controlled at time of discharge. Ischemia of extremity 10/14/2013 02/10/2014 Overview: - admitted to [facility] vascular surgery twice in October 2013, s/p left femoral endarterectomy with patch, US guided access RCFA, L profundaplasty, RUFUS recanalization & stenting, CRISPIN stenting on 10/23/13 for aorto-occlusive critical limb ischemia - S/p 11/12-11/19/13 [facility] Vascular Surgery for aortoiliac thrombosis (BLE [...] of this encounter (statuses as of 11/18/2021) [facility] History of Past illness Narrative* Problem [...] Neurotoin BID at home Patient started on [place] postoperatively, pain controlled at time of discharge. Ischemia of extremity 10/14/2013 02/10/2014 Overview: - admitted to [facility] vascular surgery twice in October 2013, s/p left femoral endarterectomy with patch, US guided access RCFA, L profundaplasty, RUFUS recanalization & stenting, CRISPIN stenting on 10/23/13 for aorto-occlusive critical limb ischemia - S/p 11/12-11/19/13 [facility] Vascular Surgery for aortoiliac thrombosis (BLE [...] of this encounter (statuses as of 11/19/2021) [facility] History of Past illness Narrative* Problem [...] Neurotoin BID at home Patient started on [place] postoperatively, pain controlled at time of discharge. Ischemia of extremity 10/14/2013 02/10/2014 Overview: - admitted to [facility] vascular surgery twice in October 2013, s/p left femoral endarterectomy with patch, US guided access RCFA, L profundaplasty, RUFUS recanalization & stenting, CRISPIN stenting on 10/23/13 for aorto-occlusive critical limb ischemia - S/p 11/12-11/19/13 [facility] Vascular Surgery for aortoiliac thrombosis (BLE [...] of this encounter (statuses as of 11/19/2021) [facility] History of Past illness Narrative* Problem [...] Neurotoin BID at home Patient started on [place] postoperatively, pain controlled at time of discharge. Ischemia of extremity 10/14/2013 02/10/2014 Overview: - admitted to [facility] vascular surgery twice in October 2013, s/p left femoral endarterectomy with patch, US guided access RCFA, L profundaplasty, RUFUS recanalization & stenting, CRISPIN stenting on 10/23/13 for aorto-occlusive critical limb ischemia - S/p 11/12-11/19/13 [facility] Vascular Surgery for aortoiliac thrombosis (BLE [...] of this encounter (statuses as of 11/26/2021) [facility] History of Past illness Narrative* Problem [...] Neurotoin BID at home Patient started on [place] postoperatively, pain controlled at time of discharge. Ischemia of extremity 10/14/2013 02/10/2014 Overview: - admitted to [facility] vascular surgery twice in October 2013, s/p left femoral endarterectomy with patch, US guided access RCFA, L profundaplasty, RUFUS recanalization & stenting, CRISPIN stenting on 10/23/13 for aorto-occlusive critical limb ischemia - S/p 11/12-11/19/13 [facility] Vascular Surgery for aortoiliac thrombosis (BLE [...] of this encounter (statuses as of 11/30/2021) [facility] History of Past illness Narrative* Problem [...] Neurotoin BID at home Patient started on [place] postoperatively, pain controlled at time of discharge. Ischemia of extremity 10/14/2013 02/10/2014 Overview: - admitted to [facility] vascular surgery twice in October 2013, s/p left femoral endarterectomy with patch, US guided access RCFA, L profundaplasty, RUFUS recanalization & stenting, CRISPIN stenting on 10/23/13 for aorto-occlusive critical limb ischemia - S/p 11/12-11/19/13 [facility] Vascular Surgery for aortoiliac thrombosis (BLE [...] of this encounter (statuses as of 12/03/2021) [facility]04-[facility]-2020 History of Past illness Narrative* Problem [...] Neurotoin BID at home Patient started on [place] postoperatively, pain controlled at time of discharge. Ischemia of extremity 10/14/2013 02/10/2014 Overview: - admitted to [facility] vascular surgery twice in October 2013, s/p left femoral endarterectomy with patch, US guided access RCFA, L profundaplasty, RUFUS recanalization & stenting, CRISPIN stenting on 10/23/13 for aorto-occlusive critical limb ischemia - S/p 11/12-11/19/13 [facility] Vascular Surgery for aortoiliac thrombosis (BLE [...] of this encounter (statuses as of 12/07/2021) [facility]04-24-2020 History of Past illness Narrative* Problem [...] Neurotoin BID at home Patient started on [place] postoperatively, pain controlled at time of discharge. Ischemia of extremity 10/14/2013 02/10/2014 Overview: - admitted to [facility] vascular surgery twice in October 2013, s/p left femoral endarterectomy with patch, US guided access RCFA, L profundaplasty, RUFUS recanalization & stenting, CRISPIN stenting on 10/23/13 for aorto-occlusive critical limb ischemia - S/p 11/12-11/19/13 [facility] Vascular Surgery for aortoiliac thrombosis (BLE [...] of this encounter (statuses as of 01/14/2022) [facility]04-24[facility]2020 History of Past illness Narrative* Problem [...] Neurotoin BID at home Patient started on [place] postoperatively, pain controlled at time of discharge. Ischemia of extremity 10/14/2013 02/10/2014 Overview: - admitted to [facility] vascular surgery twice in October 2013, s/p left femoral endarterectomy with patch, US guided access RCFA, L profundaplasty, RUFUS recanalization & stenting, CRISPIN stenting on 10/23/13 for aorto-occlusive critical limb ischemia - S/p 11/12-11/19/13 [facility] Vascular Surgery for aortoiliac thrombosis (BLE [...] of this encounter (statuses as of 01/14/2022) [facility]04-24[facility]2020 History of Past illness Narrative* Problem [...] Neurotoin BID at home Patient started on [place] postoperatively, pain controlled at time of discharge. Ischemia of extremity 10/14/2013 02/10/2014 Overview: - admitted to [facility] vascular surgery twice in October 2013, s/p left femoral endarterectomy with patch, US guided access RCFA, L profundaplasty, RUFUS recanalization & stenting, CRISPIN stenting on 10/23/13 for aorto-occlusive critical limb ischemia - S/p 11/12-11/19/13 [facility] Vascular Surgery for aortoiliac thrombosis (BLE [...] of this encounter (statuses as of 01/25/2022) [facility]04[facility]2020 History of Past illness Narrative* Problem [...] Neurotoin BID at home Patient started on [place] postoperatively, pain controlled at time of discharge. Ischemia of extremity 10/14/2013 02/10/2014 Overview: - admitted to [facility] vascular surgery twice in October 2013, s/p left femoral endarterectomy with patch, US guided access RCFA, L profundaplasty, RUFUS recanalization & stenting, CRISPIN stenting on 10/23/13 for aorto-occlusive critical limb ischemia - S/p 11/12-11/19/13 [facility] Vascular Surgery for aortoiliac thrombosis (BLE [...] of this encounter (statuses as of 01/28/2022) [facility]04-24[facility]2020 History of Past illness Narrative* Problem [...] Neurotoin BID at home Patient started on [place] postoperatively, pain controlled at time of discharge. Ischemia of extremity 10/14/2013 02/10/2014 Overview: - admitted to [facility] vascular surgery twice in October 2013, s/p left femoral endarterectomy with patch, US guided access RCFA, L profundaplasty, RUFUS recanalization & stenting, CRISPIN stenting on 10/23/13 for aorto-occlusive critical limb ischemia - S/p 11/12-11/19/13 [facility] Vascular Surgery for aortoiliac thrombosis (BLE [...] of this encounter (statuses as of 01/31/2022) [facility]04-[facility]2020 History of Past illness Narrative* Problem [...] 1.29 x 3.31cm. 07/08/2014 Hematoma stable, continue fátmia wrap at discharge Ulcerative colitis 06/24/2014 11/09/2018 [...] Neurotoin BID at home Patient started on [place] postoperatively, pain controlled at time of discharge. Ischemia of extremity 10/14/2013 02/10/2014 Overview: - admitted to [facility] vascular surgery twice in October 2013, s/p left femoral endarterectomy with patch, US guided access RCFA, L profundaplasty, RUFUS recanalization & stenting, CRISPIN stenting on 10/23/13 for aorto-occlusive critical limb ischemia - S/p 11/12-11/19/13 [facility] Vascular Surgery for aortoiliac thrombosis (BLE [...] of this encounter (statuses as of 01/31/2022) [facility]2020 History of Past illness Narrative* Problem [...] Neurotoin BID at home Patient started on [place] postoperatively, pain controlled at time of discharge. Ischemia of extremity 10/14/2013 02/10/2014 Overview: - admitted to [facility] vascular surgery twice in October 2013, s/p left femoral endarterectomy with patch, US guided access RCFA, L profundaplasty, RUFUS recanalization & stenting, CRISPIN stenting on 10/23/13 for aorto-occlusive critical limb ischemia - S/p 11/12-11/19/13 [facility] Vascular Surgery for aortoiliac thrombosis (BLE [...] of this encounter (statuses as of 01/31/2022) [facility]2020 History of Past illness Narrative* Problem [...] Neurotoin BID at home Patient started on [place] postoperatively, pain controlled at time of discharge. Ischemia of extremity 10/14/2013 02/10/2014 Overview: - admitted to [facility] vascular surgery twice in October 2013, s/p left femoral endarterectomy with patch, US guided access RCFA, L profundaplasty, RUFUS recanalization & stenting, CRISPIN stenting on 10/23/13 for aorto-occlusive critical limb ischemia - S/p 11/12-11/19/13 [facility] Vascular Surgery for aortoiliac thrombosis (BLE [...] of this encounter (statuses as of 02/03/2022) [facility]04[facility]2020 History of Past illness Narrative* Problem [...] Neurotoin BID at home Patient started on [place] postoperatively, pain controlled at time of discharge. Ischemia of extremity 10/14/2013 02/10/2014 Overview: - admitted to [facility] vascular surgery twice in October 2013, [...] of this encounter (statuses as of 02/24/2022) [facility]2020 History of Past illness Narrative* Problem [...] Neurotoin BID at home Patient started on [place] postoperatively, pain controlled at time of discharge. Ischemia of extremity 10/14/2013 02/10/2014 Overview: - admitted to [facility] vascular surgery twice in October 2013, [...] of this encounter (statuses as of 02/24/2022) [facility]2020 History of Past illness Narrative* Problem [...] Neurotoin BID at home Patient started on [place] postoperatively, pain controlled at time of discharge. Ischemia of extremity 10/14/2013 02/10/2014 Overview: - admitted to [facility] vascular surgery twice in October 2013, [...] of this encounter (statuses as of 03/02/2022) [facility]2020 History of Past illness Narrative* Problem [...] Neurotoin BID at home Patient started on [place] postoperatively, pain controlled at time of discharge. Ischemia of extremity 10/14/2013 02/10/2014 Overview: - admitted to [facility] vascular surgery twice in October 2013, [...] of this encounter (statuses as of 03/10/2022) [facility]2020 History of Past illness Narrative* Problem [...] Neurotoin BID at home Patient started on [place] postoperatively, pain controlled at time of discharge. Ischemia of extremity 10/14/2013 02/10/2014 Overview: - admitted to [facility] vascular surgery twice in October 2013, s/p left femoral endarterectomy with patch, US guided access RCFA, L profundaplasty, RUFUS recanalization & stenting, CRISPIN stenting on 10/23/13 for aorto-occlusive critical limb ischemia - S/p 11/12-11/19/13 [facility] Vascular Surgery for aortoiliac thrombosis (BLE [...] of this encounter (statuses as of 03/10/2022) [facility]2020 History of Past illness Narrative* Problem [...] Neurotoin BID at home Patient started on [place] postoperatively, pain controlled at time of discharge. Ischemia of extremity 10/14/2013 02/10/2014 Overview: - admitted to [facility] vascular surgery twice in October 2013, s/p left femoral endarterectomy with patch, US guided access RCFA, L profundaplasty, RUFUS recanalization & stenting, CRISPIN stenting on 10/23/13 for aorto-occlusive critical limb ischemia - S/p 11/12-11/19/13 [facility] Vascular Surgery for aortoiliac thrombosis (BLE [...] of this encounter (statuses as of 03/11/2022) [facility]2020 History of Past illness Narrative* Problem [...] Neurotoin BID at home Patient started on [place] postoperatively, pain controlled at time of discharge. Ischemia of extremity 10/14/2013 02/10/2014 Overview: - admitted to [facility] vascular surgery twice in October 2013, s/p left femoral endarterectomy with patch, US guided access RCFA, L profundaplasty, RUFUS recanalization & stenting, CRISPIN stenting on 10/23/13 for aorto-occlusive critical limb ischemia - S/p 11/12-11/19/13 [facility] Vascular Surgery for aortoiliac thrombosis (BLE [...] of this encounter (statuses as of 03/11/2022) [facility]2020 History of Past illness Narrative* Problem [...] Neurotoin BID at home Patient started on [place] postoperatively, pain controlled at time of discharge. Ischemia of extremity 10/14/2013 02/10/2014 Overview: - admitted to [facility] vascular surgery twice in October 2013, s/p left femoral endarterectomy with patch, US guided access RCFA, L profundaplasty, RUFUS recanalization & stenting, CRISPIN stenting on 10/23/13 for aorto-occlusive critical limb ischemia - S/p 11/12-11/19/13 [facility] Vascular Surgery for aortoiliac thrombosis (BLE [...] of this encounter (statuses as of 03/18/2022) [facility]04[facility]2020 History of Past illness Narrative* Problem [...] Neurotoin BID at home Patient started on [place] postoperatively, pain controlled at time of discharge. Ischemia of extremity 10/14/2013 02/10/2014 Overview: - admitted to [facility] vascular surgery twice in October 2013, s/p left femoral endarterectomy with patch, US guided access RCFA, L profundaplasty, RUFUS recanalization & stenting, CRISPIN stenting on 10/23/13 for aorto-occlusive critical limb ischemia - S/p 11/12-11/19/13 [facility] Vascular Surgery for aortoiliac thrombosis (BLE [...] of this encounter (statuses as of 03/24/2022) [facility]2020 History of Past illness Narrative* Problem [...] Neurotoin BID at home Patient started on [place] postoperatively, pain controlled at time of discharge. Ischemia of extremity 10/14/2013 02/10/2014 Overview: - admitted to [facility] vascular surgery twice in October 2013, [...] of this encounter (statuses as of 04/01/2022) [facility]2020 History of Past illness Narrative* Problem [...] Neurotoin BID at home Patient started on [place] postoperatively, pain controlled at time of discharge. Ischemia of extremity 10/14/2013 02/10/2014 Overview: - admitted to [facility] vascular surgery twice in October 2013, s/p left femoral endarterectomy with patch, US guided access RCFA, L profundaplasty, RUFUS recanalization & stenting, CRISPIN stenting on 10/23/13 for aorto-occlusive critical limb ischemia - S/p 11/12-11/19/13 [facility] Vascular Surgery for aortoiliac thrombosis (BLE [...] of this encounter (statuses as of 06/19/2022) [facility]2020 History of Past illness Narrative* Problem [...] Neurotoin BID at home Patient started on [place] postoperatively, pain controlled at time of discharge. Ischemia of extremity 10/14/2013 02/10/2014 Overview: - admitted to [facility] vascular surgery twice in October 2013, [...] of this encounter (statuses as of 08/02/2022) [facility]2020 History of Past illness Narrative* Problem [...] for aorto-occlusive critical limb ischemia, CAD previous [place], DM, HTN, DLD, COPD, UC/IBD on sulfasalazine [...] Neurotoin BID at home Patient started on [place] postoperatively, pain controlled at time of discharge. Urinary retention 10/25/2013 08/18/2022 Overview: Home med: tamsulosin Plan: -Resume Tamsulosin DISPOSITION AND FOLLOW-UP 10/25/20132022 Overview: CM following for d/c needs. PT/OT to evaluate-->recommending home PT 07/08/2014 Discharge with home care today Ischemia of extremity 10/14/2013 02/10/2014 Overview: - admitted to [facility] vascular surgery twice in October 2013, s/p left femoral endarterectomy with patch, US guided access RCFA, L profundaplasty, RUFUS recanalization & stenting, CRISPIN stenting on 10/23/13 for aorto-occlusive critical limb ischemia - S/p 11/12-11/19/13 [facility] Vascular Surgery for aortoiliac thrombosis (BLE [...] of this encounter (statuses as of 08/25/2022) [facility]2020 History of Past illness Narrative* Problem [...] for aorto-occlusive critical limb ischemia, CAD previous [place], DM, HTN, DLD, COPD, UC/IBD on sulfasalazine [...] Neurotoin BID at home Patient started on [place] postoperatively, pain controlled at time of discharge. Urinary retention 10/25/2013 08/18/2022 Overview: Home med: tamsulosin Plan: -Resume Tamsulosin DISPOSITION AND FOLLOW-UP 10/25/20132022 Overview: CM following for d/c needs. PT/OT to evaluate-->recommending home PT 07/08/2014 Discharge with home care today Ischemia of extremity 10/14/2013 02/10/2014 Overview: - admitted to [facility] vascular surgery twice in October 2013, s/p left femoral endarterectomy with patch, US guided access RCFA, L profundaplasty, RUFUS recanalization & stenting, CRISPIN stenting on 10/23/13 for aorto-occlusive critical limb ischemia - S/p 11/12-11/19/13 [facility] Vascular Surgery for aortoiliac thrombosis (BLE [...] of this encounter (statuses as of 08/27/2022) [facility]2020 History of Past illness Narrative* Problem [...] for aorto-occlusive critical limb ischemia, CAD previous [place], DM, HTN, DLD, COPD, UC/IBD on sulfasalazine [...] Neurotoin BID at home Patient started on [place] postoperatively, pain controlled at time of discharge. Urinary retention 10/25/2013 08/18/2022 Overview: Home med: tamsulosin Plan: -Resume Tamsulosin DISPOSITION AND FOLLOW-UP 10/25/20132022 Overview: CM following for d/c needs. PT/OT to evaluate-->recommending home PT 07/08/2014 Discharge with home care today Ischemia of extremity 10/14/2013 02/10/2014 Overview: - admitted to [facility] vascular surgery twice in October 2013, s/p left femoral endarterectomy with patch, US guided access RCFA, L profundaplasty, RUFUS recanalization & stenting, CRISPIN stenting on 10/23/13 for aorto-occlusive critical limb ischemia - S/p 11/12-11/19/13 [facility] Vascular Surgery for aortoiliac thrombosis (BLE [...] of this encounter (statuses as of 08/27/2022) [facility]2020 History of Past illness Narrative* Problem [...] for aorto-occlusive critical limb ischemia, CAD previous [place], DM, HTN, DLD, COPD, UC/IBD on sulfasalazine [...] Neurotoin BID at home Patient started on [place] postoperatively, pain controlled at time of discharge. [...] of this encounter (statuses as of 08/29/2022) [facility]2020 History of Past illness Narrative* Problem [...] for aorto-occlusive critical limb ischemia, CAD previous [place], DM, HTN, DLD, COPD, UC/IBD on sulfasalazine [...] Neurotoin BID at home Patient started on [place] postoperatively, pain controlled at time of discharge. Urinary retention 10/25/2013 08/18/2022 Overview: Home med: tamsulosin Plan: -Resume Tamsulosin DISPOSITION AND FOLLOW-UP 10/25/20132022 Overview: CM following for d/c needs. PT/OT to evaluate-->recommending home PT 07/08/2014 Discharge with home care today Ischemia of extremity 10/14/2013 02/10/2014 Overview: - admitted to [facility] vascular surgery twice in October 2013, [...] of this encounter (statuses as of 09/02/2022) [facility] History of Past illness Narrative* Problem [...] for aorto-occlusive critical limb ischemia, CAD previous [place], DM, HTN, DLD, COPD, UC/IBD on sulfasalazine [...] Neurotoin BID at home Patient started on [place] postoperatively, pain controlled at time of discharge. Urinary retention 10/25/2013 08/18/2022 Overview: Home med: tamsulosin Plan: -Resume Tamsulosin DISPOSITION AND FOLLOW-UP 10/25/20132022 Overview: CM following for d/c needs. PT/OT to evaluate-->recommending home PT 07/08/2014 Discharge with home care today Ischemia of extremity 10/14/2013 02/10/2014 Overview: - admitted to [facility] vascular surgery twice in October 2013, [...] of this encounter (statuses as of 09/07/2022) [facility] History of Past illness Narrative* Problem [...] for aorto-occlusive critical limb ischemia, CAD previous [place], DM, HTN, DLD, COPD, UC/IBD on sulfasalazine [...] Neurotoin BID at home Patient started on [place] postoperatively, pain controlled at time of discharge. Urinary retention 10/25/2013 08/18/2022 Overview: Home med: tamsulosin Plan: -Resume Tamsulosin DISPOSITION AND FOLLOW-UP 10/25/20132022 Overview: CM following for d/c needs. PT/OT to evaluate-->recommending home PT 07/08/2014 Discharge with home care today Ischemia of extremity 10/14/2013 02/10/2014 Overview: - admitted to [facility] vascular surgery twice in October 2013, s/p left femoral endarterectomy with patch, US guided access RCFA, L profundaplasty, RUFUS recanalization & stenting, CRISPIN stenting on 10/23/13 for aorto-occlusive critical limb ischemia - S/p 11/12-11/19/13 [facility] Vascular Surgery for aortoiliac thrombosis (BLE [...] of this encounter (statuses as of 10/01/2022) [facility] History of Past illness Narrative* Problem [...] for aorto-occlusive critical limb ischemia, CAD previous [place], DM, HTN, DLD, COPD, UC/IBD on sulfasalazine [...] Neurotoin BID at home Patient started on [place] postoperatively, pain controlled at time of discharge. Urinary retention 10/25/2013 08/18/2022 Overview: Home med: tamsulosin Plan: -Resume Tamsulosin DISPOSITION AND FOLLOW-UP 10/25/2013 Overview: CM following for d/c needs. PT/OT to evaluate-->recommending home PT 07/08/2014 Discharge with home care today Ischemia of extremity 10/14/20132013 Overview: - admitted to [facility] vascular surgery twice in October 2013, s/p left femoral endarterectomy with patch, US guided access RCFA, L profundaplasty, RUFUS recanalization & stenting, CRISPIN stenting on 10/23/13 for aorto-occlusive critical limb ischemia - S/p 11/12-11/19/13 [facility] Vascular Surgery for aortoiliac thrombosis (BLE [...] of this encounter (statuses as of 12/27/2022) [facility] History of Past illness Narrative* Problem [...] the MRI of the shoulder. Hematoma, postoperative 07/07/2014/2 08/2014 Overview: 07/07/2014 Left arm duplex LEFT SIDE [...] for aorto-occlusive critical limb ischemia, CAD previous [place], DM, HTN, DLD, COPD, UC/IBD on sulfasalazine [...] Neurotoin BID at home Patient started on [place] postoperatively, pain controlled at time of discharge. [...] - Scheduled for OPD appointment with Dr. hSer on 02/10/2014. - PVR study of the lower limbs unchanged from previous. 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 Urinary retention 10/25/2013 08/18/2022 Overview: Home med: tamsulosin Plan: -Resume Tamsulosin DISPOSITION AND FOLLOW-UP 10/25/2013 Overview: CM following for d/c needs. PT/OT to evaluate-->recommending home PT 07/08/2014 Discharge with home care today Ischemia of extremity 10/14/20132013 Overview: - admitted to [facility] vascular surgery twice in October 2013, s/p left femoral endarterectomy with patch, US guided access RCFA, L profundaplasty, RUFUS recanalization & stenting, CRISPIN stenting on 10/23/13 for aorto-occlusive critical limb ischemia - S/p 11/12-11/19/13 [facility] Vascular Surgery for aortoiliac thrombosis (BLE [...] of this encounter (statuses as of 01/28/2023) [facility] History of Past illness Narrative* Problem [...] for aorto-occlusive critical limb ischemia, CAD previous [place], DM, HTN, DLD, COPD, UC/IBD on sulfasalazine [...] Neurotoin BID at home Patient started on [place] postoperatively, pain controlled at time of discharge. Urinary retention 10/25/2013 08/18/2022 Overview: Home med: tamsulosin Plan: -Resume Tamsulosin DISPOSITION AND FOLLOW-UP 10/25/2013 Overview: CM following for d/c needs. PT/OT to evaluate-->recommending home PT 07/08/2014 Discharge with home care today Ischemia of extremity 10/14/20132013 Overview: - admitted to [facility] vascular surgery twice in October 2013, s/p left femoral endarterectomy with patch, US guided access RCFA, L profundaplasty, RUFUS recanalization & stenting, CRISPIN stenting on 10/23/13 for aorto-occlusive critical limb ischemia - S/p 11/12-11/19/13 [facility] Vascular Surgery for aortoiliac thrombosis (BLE [...] of this encounter (statuses as of 03/01/2023) [facility] History of Past illness Narrative* Problem [...] for aorto-occlusive critical limb ischemia, CAD previous [place], DM, HTN, DLD, COPD, UC/IBD on sulfasalazine [...] Neurotoin BID at home Patient started on [place] postoperatively, pain controlled at time of discharge. [...] of this encounter (statuses as of 03/31/2023) [facility] History of Past illness Narrative* Problem [...] for aorto-occlusive critical limb ischemia, CAD previous [place], DM, HTN, DLD, COPD, UC/IBD on sulfasalazine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 hyperlipidemia Essential hypertension [...] hematuria, site unspecified [facility] Diagnosis Onset Date Resolution Status Admit [...] Coronary atherosclerosis of unspecified type of vessel, wilton or graft PVD (peripheral vascular disease) Peripheral [...] unspecified vessel or lesion type, unspecified whether wilton or transplanted heart Mixed hyperlipidemia Essential hypertension [...] malaise and fatigue documented [facility] Diagnosis COPD (chronic obstructive pulmonary disease) [...] elsewhere classified COPD (chronic obstructive pulmonary disease) ([facility])- Primary Chronic airway obstruction, not elsewhere [...] Coronary atherosclerosis of unspecified type of vessel, wilton or graft PVD (peripheral vascular disease) Peripheral [...] unspecified vessel or lesion type, unspecified whether wilton or transplanted heart Mixed hyperlipidemia Essential hypertension [...] Educational circumstance Wheezing [facility] Diagnosis COPD (chronic obstructive pulmonary [...] abnormal glucose COPD (chronic obstructive pulmonary disease) ([facility]) Chronic airway obstruction, not elsewhere classified [...] Peripheral vascular disease, unspecified Lupus anticoagulant disorder ([facility]) Primary hypercoagulable state Tobacco use disorder [...] elsewhere classified COPD (chronic obstructive pulmonary disease) ([facility])- Primary Chronic airway obstruction, not elsewhere [...] Coronary atherosclerosis of unspecified type of vessel, wilton or graft PVD (peripheral vascular disease) Peripheral [...] unspecified vessel or lesion type, unspecified whether wilton or transplanted heart Mixed hyperlipidemia Essential hypertension [...] on supplemental oxygen [facility] Diagnosis COPD (chronic obstructive pulmonary [...] Coronary atherosclerosis of unspecified type of vessel, wilton or graft PVD (peripheral vascular disease) Peripheral [...] unspecified vessel or lesion type, unspecified whether wilton or transplanted heart Mixed hyperlipidemia Essential hypertension [...] Shortness of breath [facility] Diagnosis COPD (chronic obstructive pulmonary disease) ([facility])- Primary Chronic airway obstruction, not elsewhere [...] Coronary atherosclerosis of unspecified type of vessel, wilton or graft PVD (peripheral vascular disease) Peripheral [...] unspecified vessel or lesion type, unspecified whether wilton or transplanted heart Mixed hyperlipidemia Essential hypertension [...] and unspecified hyperlipidemia [facility] Author Fran Cartwright [facility] March 30, 2023 8:08pm Note Date/Time March 30, 2023 7 :32pm [facility] Medical Records Department [address] [place] [address] H&P Exam - Hospitalist 03/30/231931 MR#: [id number] Acct: [id number] Name: PEDRO PABLO SIERRA Rep #:[id number] : 1950 72 From: Fran Cartwright MD PCP: Dr. Daija Morton MD Status:ADM I N Location: [facility] IA084-1 HPI - General General Date of Admission: [...] patient has a burning sensation with urination. [facility] Medical History (Updated 03/30/23 @ 20:04 [...] 79.2 H, Lymph % (Auto) 9.3 L, [place] % (Auto) 10.5 H, Eos % (Auto) [...] Sl. Cloudy, Urine pH 6.0, Ur Specific [place] 1.020, Urine Protein 100 H, Urine Glucose [...] documentation, 70minutes. Charges/Coding Visit Charges Inpatient E&M: 36501 Init Hosp L3 03/30/232007 <Electronically signed by Fran Cartwright MD> Cosigner Signature (if applicable): CC: Dr. Daija Morton MD; Dr. Fran Cartwright MD~ Signed [facility] Work Phone: History and physical note Author Андрей Cooley [facility] July 24, 2023 9:10pm Note Date/Time July 24, 2023 9 :10pm [facility] Medical Records Department [address] [place] [address] History & Physical Exam 07/24/232103 MR#: [id number] Acct: [id number] Name: PEDRO PABLO SIERRA Rep #:[id number] : 1950 73 From: Андрей Cooley MD [...] past medical history of recent discharge from assisted for debility and weakness. Patient does also have a history of long-term smoking. Patient denies any chest pain, shortness of breath fevers or chills at present time. He will be admitted for pain control and case management to arrange for senior care care facility. [facility] Medical History Asthma Atrial fibrillation Chronic [...] 74.0 H, Lymph % (Auto) 16.0 L, [place] % (Auto) 7.3, Eos % (Auto) 1.1, [...] 17:27 EST Reading Location ID and State: [address] [place] [address] Tel , Service support , Assessment & [...] on anticoagulation Charges/Coding Visit Charges Inpatient E&M: 45650 Init Hosp L2 07/24/232109 <Electronically signed by Андрей Cooley MD> Cosigner Signature (if applicable): CC: Dr. Daija Morton MD; Dr. Андрей Cooley MD~ Signed [facility] Work Phone: History and physical note Author Lisha Talamantes [facility] Note Date/Time August 25, 2024 7:00 pm [facility] Medical Records Department [address] [place] [address] H&P Exam - Hospitalist 08/25/24 1820 MR#: [id number] Acct: [id number] Name: PEDRO PABLO SIERRA Rep #:[id number] : 1950 74 From: Lisha Talamantes DO PCP: Dr. Daija Morton MD Status:ADM I NO Location: PR3 NC390-0 HPI - General General Date of Admission: [...] Chest x-ray is unremarkable for acute findings. [facility] Medical History Compression fx, lumbar spine [...] 78.4 H, Lymph % (Auto) 10.3 L, [place] % (Auto) 9.9, Eos % (Auto) 0.3, [...] need clarified Charges/Coding Visit Charges Inpatient E&M: 41463 Init Hosp L2 08/25/24 1900 <Electronically signed by Lisha Talamantes DO> Cosigner Signature (if applicable): CC: Dr. Daija Morton MD; Dr. Lisha Talamantes DO~ Signed [facility] Work Phone: History and physical note Author Shilpa Contreras [facility] Note Date/Time December 13, 2024 8:50 pm [facility] Medical Records Department [address] [place] [address] H&P Exam - Hospitalist 12/13/241948 MR#: [id number] Acct: [id number] Name: PEDRO PABLO SIERRA Rep #:[id number] : 1950 74 From: Shilpa Contreras MD PCP: Dr. Daija Morton MD Status:ADM I N Location: [place] [address] HPI - General General Date of Admission: [...] component requested ABG and will trial BiPAP. [facility] Medical History Weakness Debility Failure to [...] 2 tab PO BID PRN PRN Constipation 10/17/23 Unknown Rx 50 mg tablet (Stool #0 [...] % (Auto) 67.3, Lymph % (Auto) 19.5, [place]% (Auto) 8.9, Eos % (Auto) 3.0, Baso [...] significant change since last exam. Reading Location: [id number] Assessment & Plan Assessment/Plan (1) COPD exacerbation: [...] 0.9. #16. 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 Discussed CODE status at length including difference between FULL code, DNR-CCA and DNR-CC status. Following discussions about the differences in these status, requested Full Code status. [facility] Care[facility] Face to Face Time: 16 minutes. Charges/Coding Visit Charges Inpatient E&M: 32174 Init Hosp L3 Procedures Hospitalists Procedures: 38358 Advncd Care Plan 30 Min 12/13/242049 <Electronically signed by Shilpa Contreras MD> Cosigner Signature (if applicable): CC: Dr. Shilpa Contreras MD; Dr. Daija Morton MD~ Signed [facility] Work Phone: History and physical note Author Frankie Galindo [facility] Note Date/Time January 05, 2025 2:02 pm [facility] Medical Records Department [address] [place] [address] H&P Exam - Hospitalist 01/05/25 1336 MR#: [id number] Acct: [id number] Name: PEDRO PABLO SIERRA Rep #:[id number] : 1950 74 From: Frankie Galindo MD PCP: Dr. Lorraine Mena MD Status:A DM IN Location: [facility] PIL975- 1 HPI - General General Date of Admission: 01/05/25 Date of Service: 01/05/25 Chief Complaint: Suspected PEG tomorrow found HPI Narrative PEDRO PABLO SIERRA, is a 74 M with recent diagnosis of acute left MCA CVA discharged to a senior care facility. Patient had a PEG tube placed [...] to a monitored bed for further management [facility] Medical History Acute CVA (cerebrovascular accident) Aphasia [...] D3) 50 50 mcg feeding tube DA KATHERINE 12/24/24 01/05/25 Rx mcg (2,000 unit) tablet [...] 76.7 H, Lymph % (Auto) 14.2 L, [place] % (Auto) 7.0, Eos % (Auto) 1.2, [...] pCO2 47.9 H ABG pO2 52 L Dann Test Positive O2 Delivery Device Cannula Vent Mode Not entered Imaging Radiology Impression Chest X-Ray 01/05/25 09:59 IMPRESSION: COPD. No acute findings. Reading Location: [id number] KUB X-Ray 01/05/25 13:02 IMPRESSION: A PEG tube tip is projected in the region of the stomach. Contrast material is identified within the stomach. There is no extravasation of the contrast. 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 Was [...] 78 Minutes Charges/Coding Visit Charges Inpatient E&M: 63190 Init Hosp L3 01/05/25 1402 <Electronically signed by Frankie Galindo MD> Cosigner Signature (if applicable): CC: Dr. Frankie Galindo MD; Dr. Lorraine Mena MD~ Signed [facility] Work Phone: [facility] Work Phone: [facility] Work Phone: [facility] Work Phone: [phone] Discharge instructionsWW[facility] Work Phone: [facility] Work Phone: [facility] Work Phone: Hospital Discharge instructions Additional Instructions Ice to your rib cage. Support your sore ribs with a pillow. Your chest x-ray did not show any broken ribs sometimes however there are small cracks in the ribs we cannot see on the x-ray. [place] for more severe pain. Otherwise use Tylenol. If you are using the pain medication [place] then do not use Tylenol with it. [...] note No data available for this section [facility] Reason for referral (narrative)* Outpatient Procedure (Routine) - Closed Specialty Diagnoses / Procedures Referred By Morris t [facility] Diagnoses COPD with chronic bronchitis (HCC) Procedures OXIMETRY WITH AMBULATION NONINVASIVE EAR/PULSE OXIMETRY MULTIPLE DETER Emilie Jauregui PA-C [address] [address] Referral ID Status Reason Start Date Expiration Date V isits Requested Visits Authorized [id number] Closed Auto-Generate d Referral 11/05/2021 06/18/2022 1 1 * Outpatient Procedure (Routine) - Closed Specialty Diagnoses / Procedures Referred By Contchelo t [facility] Diagnoses COPD with chronic bronchitis (HCC) Procedures LUNG DIFFUSION CAPACITY (DLCO) DIFFUSING CAPACITY Emilie Jauregui PA-C [address] [address] Referral ID Status Reason Start Date Expiration Date V isits Requested Visits Authorized [id number] Closed Auto-Generate d Referral 11/05/2021 06/18/2022 1 1 * Outpatient Procedure (Routine) - Closed Specialty Diagnoses / Procedures Referred By oMrris t Referred To [facility] Diagnoses COPD with chronic bronchitis (HCC) Procedures SPIROMETRY BASELINE ONLY SPMTRY W/VC EXPIRATORY BRIAN W/WO MXML VOL VNTJ Emilie Jauregui PA-C [address] [address] Referral ID Status Reason Start Date Expiration Date V isits Requested Visits Authorized [id number] Closed Auto-Generate d Referral 11/05/2021 06/18/2022 1 1 [facility] for referral (narrative)* Outpatient Procedure (Routine) - Pending Review Specialty Diagnoses / Procedures Referred By Morris t Referred To Contact [facility] Diagnoses Essential hypertension Chest pain, unspecified type Procedures ECG COMPLETE ECG ROUTINE ECG W/LEAST 12 LDS W/I&R Anjel Braga APRN.CNP [address] [place] [address] [facility] [address] [place] [id number] Referral ID Status Reason Start Date Expiration Date Visits Requested Visits Authorized [id number] Pending Review Auto-Generat ed Referral 01/28/2022 01/28/2023 1 1 [facility] for referral (narrative)* Outpatient Procedure (Routine) - Authorized Specialty Diagnoses / Procedures Referred By Contac t Referred To Contact [facility] Diagnoses PVD (peripheral vascular disease) (HCC) Procedures PVR LEG COREY VAS LAB PVR LEG COREY VAS LAB NON-INVASIVE PHYSIOLOGIC STUDY EXTREMITY [address] [place] [address] [place] [address] [address] Referral ID Status Reason Start Date Expiration Date Visits Requested Visits Authorized [id number] Authorized Auto-Generat ed Referral 01/31/2022 01/31/2023 1 1 [facility] for referral (narrative)* Outpatient Procedure (Routine) - Authorized Specialty Diagnoses / Procedures Referred By Contac t Referred To Contact [facility] Diagnoses Peripheral arterial disease (HCC) PVD (peripheral vascular disease) (HCC) Procedures PVR LEG COREY VAS LAB NON-INVASIVE PHYSIOLOGIC STUDY EXTREMITY [address] [place] [address] [place] [address] [place] [address] [place] [address] Referral ID Status Reason Start Date Expiration Date Visits Requested Visits Authorized [id number] Authorized Auto-Generat ed Referral 12/26/2022 12/26/2023 1 1 [facility] Outpatient Procedure (Routine) - Authorized Specialty Diagnoses / Procedures Referred By Contac t Referred To Contact [facility] Diagnoses Peripheral arterial disease (HCC) Procedures PVR LEG COREY VAS LAB NON-INVASIVE PHYSIOLOGIC STUDY EXTREMITY [address] [place] [address] [place] [address] [facility] [address] [place] [address] Referral ID Status Reason Start Date Expiration Date Visits Requested Visits Authorized [id number] Authorized Auto-Generat ed Referral 01/02/2024 01/01/2025 1 1 [facility] for referral (narrative)No reason for referral information availableWWright-Pat[facility] Work Phone: Summary Purpose Family History No [...] FoundDocuments on File Type Date Recorded Patient Mate Relief Expl anation Advance Directive(s) 10/24/2019 3:38 PM [...] Documents on File Type Date Recorded Patient Mate Relief Expl anation Advance Directive(s) 08/29/2021 6:53 PM Advance Directive(s) 08/22/2021 7:53 PM Advance Directive(s) 04/10/2020 4:06 PM Advance Directive(s) 12/17/2019 10:49 AM Advance Directive(s) 10/24/2019 3:38 PM Advance Directive(s) 10/17/2019 9:43 AM Advance Directive(s) 10/08/2019 7:18 AM Advance Directive(s) 09/04/2019 1:38 PM Advance Directive(s) 02/07/2016 12:11 AM Advance Directive Response Recorded Date/ Time Name of Medical Power of Photography Manager eloina stephens e- ex August 12, 2021 1:39am Name of Medical Power of Photography Manager Joseph Burrell August 18, 2021 11:56pm Advance Directives Yes March 22, 2016 4:03pm Living Will No September 17, 2021 5:48pm Power of Photography Manager Yes September 17 5:48pm Advance Directive Response Recorded Date/ Time Name of Medical Power of Photography Manager eloina stephens e- ex August 12, 2021 1:39am Name of Medical Power of Photography Manager Joseph Burrell August 18, 2021 11:56pm Name of Medical Power of Photography Manager joseph burrell September 17, 2021 5:48pm Advance Directives Yes March 22, 2016 4:03pm Living Will No October 08, 2021 2:20pm Power of Photography Manager No October 08 2:20pm Documents on File Type Date Recorded Patient Mate Relief Expl anation Advance Directive(s) 08/29/2021 6:53 PM [...] Date/ Time Name of Medical Power of Photography Manager eloina stephens e- ex August 12, 2021 1:39am Name of Medical Power of Photography Manager Joseph Burrell August 18, 2021 11:56pm Name of Medical Power of Photography Manager joseph burrell September 17, 2021 5:48pm Advance Directives Yes March 22, 2016 4:03pm Living Will Yes November 25, 2021 5 :33pm Power of Photography Manager Yes November 25, 2021 5:33pm Advance Directive Response Recorded Date/ Time Name of Medical Power of Photography Manager eloina stephens e- ex August 12, 2021 1:39am Name of Medical Power of Photography Manager Joseph Burrell August 18, 2021 11:56pm Name of Medical Power of Photography Manager joseph burrell September 17, 2021 5:48pm Advance Directives Yes March 22, 2016 4:03pm Living Will Yes November 25, 2021 1 1:06pm Power of Photography Manager No November 25, 2021 11:06pm Advance Directive Response Recorded Date/ Time Name of Medical Power of Photography Manager Joseph Burrell August 18, 2021 11:56pm Name of Medical Power of Photography Manager joseph burrell September 17, 2021 5:48pm Name of Medical Power of Photography Manager MICHELLE RICHMOND November 25, 2021 5:33pm Advance Directives Yes March 22, 2016 4:03pm Living Will Yes November 25, 2021 1 1:06pm Power of Photography Manager No November 25, 2021 11:06pm Advance Directive Response Recorded Date/ Time Name of Medical Power of Photography Manager joseph burrell September 17, 2021 5:48pm Name of Medical Power of Photography Manager MICHELLEADRIANA REEDON November 25, 2021 5:33pm Advance Directives Yes March 22, 2016 4:03pm Living Will Yes November 25, 2021 1 1:06pm Power of Photography Manager No November 25, 2021 11:06pm Advance Directive Response Recorded Date/ Time Name of Medical Power of Photography Manager MICHELLE RICHMOND November 25, 2021 5:33pm Advance Directives Yes March 22, 2016 4:03pm Living Will Yes November 25, 2021 1 1:06pm Power of Photography Manager No November 25, 2021 11:06pm Advance Directive Response Recorded Date/ Time Name of Medical Power of Photography Manager MICHELLE RICHMOND November 25, 2021 5:33pm Name of Medical Power of Photography Manager recalled January 28, 2022 3:14pm Advance Directives Yes March 22, 2016 4:03pm Living Will Yes January 28 3:14pm Power of Photography Manager Yes January 28 022 3:14pm Documents on File Type Date Recorded Patient Mate Relief Expl anation Advance Directive(s) 10/24/2019 3:38 PM Advance Directive Response Recorded Date/ Time Name of Medical Power of Photography Manager MICHELLE RICHMOND November 25, 2021 5:33pm Name of Medical Power of Photography Manager recalled January 28, 2022 3:14pm Advance Directives Yes March 22, 2016 4:03pm Living Will Yes March 02, 2022 3:17pm Power of Photography Manager No February 3:17pm Advance Directive Response Recorded Date/ Time Name of Medical Power of Photography Manager MICHELLE RICHMOND November 25, 2021 5:33pm Name of Medical Power of Photography Manager recalled January 28, 2022 3:14pm Advance Directives Yes March 22, 2016 4:03pm Living Will No March 07, 2022 5:26pm Power of Photography Manager No February 5:26pm Advance Directive Response Recorded Date/ Time Name of Medical Power of Photography Manager MICHELLE RICHMOND November 25, 2021 5:33pm Name of Medical Power of Photography Manager recalled January 28, 2022 3:14pm Advance Directives Yes March 22, 2016 4:03pm Living Will No March 08, 2022 8:17pm Power of Photography Manager No February 8:17pm Advance Directive Response Recorded Date/ Time Advance Directives Yes March 22, 2016 3:03pm Living Will No March 08, 2022 7:17pm Power of Photography Manager No February 7:17pm Advance Directive Response Recorded Date/ Time Advance Directives Yes March 22, 2016 4:03pm Living Will No October 21, 2022 6: 58pm Power of Photography Manager No October 21, 2022 6:58pm Latest Code [...] Date/ Time Name of Medical Power of Photography Manager JOSEPH Euceda December 31, 2022 3:19pm Advance Directives Yes March 22, 2016 4:03pm Living Will Yes December 31, 2022 3:19pm Power of Photography Manager Yes December 31 3:19pm Advance Directive Response Recorded Date/ Time Name of Medical Power of Photography Manager JOSEPH Euceda December 31, 2022 3:19pm Name of Medical Power of Photography Manager Joseph February 17, 2023 11:06pm Advance Directives Yes March 22, 2016 4:03pm Living Will Yes February 17 11:06pm Power of Photography Manager Yes February 17, 2023 11:06pm Advance Directive Response Recorded Date/ Time Name of Medical Power of Photography Manager Joseph Burrell March 29, 2023 7:22pm Advance Directives Yes March 22, 2016 4:03pm Living Will No March 30 3:32pm Power of Photography Manager No March 30, 2023 3:32pm Name of Medical Power of Photography Manager JOSEPH Euceda December 31, 2022 3:19pm Name of Medical Power of Photography Manager Joseph February 17, 2023 11:06pm Advance Directive Response Recorded Date/ Time Name of Medical Power of Photography Manager Joseph Burrell March 29, 2023 7:22pm Advance Directives Yes March 22, 2016 4:03pm Living Will No March 30 9:04pm Power of Photography Manager No March 30, 2023 9:04pm Name of Medical Power of Photography Manager JOSEPH BURRELL- E X December 31, 2022 3:19pm Name of Medical Power of Photography Manager Joseph February 17, 2023 11:06pm Advance Directive Response Recorded Date/ Time Name of Medical Power of Photography Manager Joseph Burrell March 29, 2023 6:22pm Advance Directives Yes March 22, 2016 3:03pm Living Will No March 30 8:04pm Power of Photography Manager No March 30, 2023 8:04pm Advance Directive Response Recorded Date/ Time Name of Medical Power of Photography Manager Joseph Burrell March 29, 2023 6:22pm Name of Medical Power of Photography Manager Joseph Burrell July 24, 2023 5:27pm Advance Directives Yes March 22, 2016 3:03pm Living Will Yes July 24 5:27pm Power of Photography Manager Yes July 24, 2023 5:27pm Advance Directive Response Recorded Date/ Time Name of Medical Power of Photography Manager Joseph Burrell July 24, 2023 9:55pm Advance Directives Yes March 22, 2016 3:03pm Living Will No July 30, 024 8:34pm Power of Photography Manager No July 30, 2023 8:34pm Advance Directive Response Recorded Date/ Time Name of Medical Power of Photography Manager Joseph Burrell July 24, 2023 9:55pm Name of Medical Power of Photography Manager Nahed Roxy July 31, 2023 12:57am Advance Directives Yes March 22, 2016 3:03pm Living Will No July 31, 024 12:57am Power of Photography Manager Yes July 31, 2023 12:57am Date Activated Date Inactivated Comments 08/23/2021 7:55 AM 09/13/2021 7:43 PM Question Answer Comments Full Code Order Discussed With: Patient Date Activated Date Inactivated Comments 10/01/2020 11:51 PM 08/21/2021 11:26 AM Advance Directive Response Recorded Date/ Time Name of Medical Power of Photography Manager Joseph Burrell March 29, 2023 6:22pm Advance Directives Yes March 22, 2016 3:03pm Living Will No March 30 8:04pm Power of Photography Manager No March 30, 2023 8:04pm Name of Medical Power of Photography Manager Joseph February 17, 2023 10:06pm Advance Directive Response Recorded Date/ Time Living Will No August 25, 2024 4:43pm Power of Photography Manager No August 25 4:43pm Advance Directives Yes March 22, 2016 4:03pm Advance Directive Response Recorded Date/ Time Living Will No August 25, 2024 7:21pm Power of Photography Manager No August 25 7:21pm Advance Directives Yes March 22, 2016 4:03pm Advance Directive Response Recorded Date/ Time Living Will No August 25, 2024 7:21pm Do you have a Healthcare Power of Photography Manager? No August 25, 2024 7:21pm Advance Directives Yes March 22, 2016 4:03pm Advance Directive Response Recorded Date/ Time Do you have a Healthcare Power of Photography Manager? No December 13, 2024 5:49pm Living Will No August 25, 2024 7:21pm Do you have a Healthcare Power of Photography Manager? No August 25, 2024 7:21pm Advance Directives Yes March 22, 2016 4:03pm Advance Directive Response Recorded Date/ Time Do you have a Healthcare Power of Photography Manager? Yes December 13, 2024 9:26pm Name of Medical Power of Photography Manager Joseph Burrell December 13, 2024 9:26pm Living Will No August 25, 2024 7:21pm Do you have a Healthcare Power of Photography Manager? No August 25, 2024 7:21pm Advance Directives Yes March 22, 2016 4:03pm Advance Directive Response Recorded Date/ Time Do you have a Healthcare Power of Photography Manager? Yes December 13, 2024 9:26pm Name of Medical Power of Photography Manager Joseph Burrell December 13, 2024 9:26pm Do you have a Healthcare Power of Photography Manager? Yes December 17, 2024 4:23pm Living Will No August 25, 2024 7:21pm Do you have a Healthcare Power of Photography Manager? No August 25, 2024 7:21pm Advance Directives Yes March 22, 2016 4:03pm Advance Directive Response Recorded Date/ Time Do you have a Healthcare Power of Photography Manager? Yes December 13, 2024 9:26pm Name of Medical Power of Photography Manager Joseph Burrell December 13, 2024 9:26pm Do you have a Healthcare Power of Photography Manager? Yes December 17, 2024 4:23pm Do you have a Healthcare Power of Photography Manager? Yes January 03, 2025 6:26am Advance Directives Yes March 22, 2016 4:03pm Advance Directive Response Recorded Date/ Time Do you have a Healthcare Power of Photography Manager? Yes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 the information to criminally investigate or prosecute any alcohol or drug abuse patient.[facility] HospitalIn the event this information is protected by the Federal Confidentiality of Alcohol and Drug Abuse Patient Records regulations: The Federal rules restrict any use of the information to criminally investigate or prosecute any alcohol or drug abuse patient.[facility] HospitalIn the event this information is protected by the Federal Confidentiality of Alcohol and Drug Abuse Patient Records regulations: The Federal rules restrict any use of the information to criminally investigate or prosecute any alcohol or drug abuse patient.[facility] HospitalIn the event this information is protected by the Federal Confidentiality of Alcohol and Drug Abuse Patient Records regulations: The Federal rules restrict any use of the information to criminally investigate or prosecute any alcohol or drug abuse patient.[facility] HospitalIn the event this information is protected by the Federal Confidentiality of Alcohol and Drug Abuse Patient Records regulations: The Federal rules restrict any use of the information to criminally investigate or prosecute any alcohol or drug abuse patient.[facility] HospitalIn the event this information is protected by the Federal Confidentiality of Alcohol and Drug Abuse Patient Records regulations: The Federal rules restrict any use of the information to criminally investigate or prosecute any alcohol or drug abuse patient.[facility] HospitalIn the event this information is protected by the Federal Confidentiality of Alcohol and Drug Abuse Patient Records regulations: The Federal rules restrict any use of the information to criminally investigate or prosecute any alcohol or drug abuse patient.[facility] HospitalIn the event this information is protected by the Federal Confidentiality of Alcohol and Drug Abuse Patient Records regulations: The Federal rules restrict any use of the information to criminally investigate or prosecute any alcohol or drug abuse patient.[facility] HospitalIn the event this information is protected by the Federal Confidentiality of Alcohol and Drug Abuse Patient Records regulations: The Federal rules restrict any use of the information to criminally investigate or prosecute any alcohol or drug abuse patient.[facility] HospitalIn the event this information is protected by the Federal Confidentiality of Alcohol and Drug Abuse Patient Records regulations: The Federal rules restrict any use of the information to criminally investigate or prosecute any alcohol or drug abuse patient.[facility] HospitalIn the event this information is protected by the Federal Confidentiality of Alcohol and Drug Abuse Patient Records regulations: The Federal rules restrict any use of the information to criminally investigate or prosecute any alcohol or drug abuse patient.[facility] HospitalIn the event this information is protected by the Federal Confidentiality of Alcohol and Drug Abuse Patient Records regulations: The Federal rules restrict any use of the information to criminally investigate or prosecute any alcohol or drug abuse patient.[facility] HospitalIn the event this information is protected by the Federal Confidentiality of Alcohol and Drug Abuse Patient Records regulations: The Federal rules restrict any use of the information to criminally investigate or prosecute any alcohol or drug abuse patient.[facility] HospitalIn the event this information is protected by the Federal Confidentiality of Alcohol and Drug Abuse Patient Records regulations: The Federal rules restrict any use of the information to criminally investigate or prosecute any alcohol or drug abuse patient.[facility] HospitalIn the event this information is protected by the Federal Confidentiality of Alcohol and Drug Abuse Patient Records regulations: The Federal rules restrict any use of the information to criminally investigate or prosecute any alcohol or drug abuse patient.[facility] HospitalIn the event this information is protected by the Federal Confidentiality of Alcohol and Drug Abuse Patient Records regulations: The Federal rules restrict any use of the information to criminally investigate or prosecute any alcohol or drug abuse patient.[facility] HospitalIn the event this information is protected by the Federal Confidentiality of Alcohol and Drug Abuse Patient Records regulations: The Federal rules restrict any use of the information to criminally investigate or prosecute any alcohol or drug abuse patient.[facility] HospitalIn the event this information is protected by the Federal Confidentiality of Alcohol and Drug Abuse Patient Records regulations: The Federal rules restrict any use of the information to criminally investigate or prosecute any alcohol or drug abuse patient.[facility] HospitalIn the event this information is protected by the Federal Confidentiality of Alcohol and Drug Abuse Patient Records regulations: The Federal rules restrict any use of the information to criminally investigate or prosecute any alcohol or drug abuse patient.[facility] HospitalIn the event this information is protected by the Federal Confidentiality of Alcohol and Drug Abuse Patient Records regulations: The Federal rules restrict any use of the information to criminally investigate or prosecute any alcohol or drug abuse patient.[facility] HospitalIn the event this information is protected by the Federal Confidentiality of Alcohol and Drug Abuse Patient Records regulations: The Federal rules restrict any use of the information to criminally investigate or prosecute any alcohol or drug abuse patient.[facility] HospitalIn the event this information is protected by the Federal Confidentiality of Alcohol and Drug Abuse Patient Records regulations: The Federal rules restrict any use of the information to criminally investigate or prosecute any alcohol or drug abuse patient.[facility] HospitalIn the event this information is protected by the Federal Confidentiality of Alcohol and Drug Abuse Patient Records regulations: The Federal rules restrict any use of the information to criminally investigate or prosecute any alcohol or drug abuse patient.[facility] HospitalIn the event this information is protected by the Federal Confidentiality of Alcohol and Drug Abuse Patient Records regulations: The Federal rules restrict any use of the information to criminally investigate or prosecute any alcohol or drug abuse patient.[facility] HospitalIn the event this information is protected by the Federal Confidentiality of Alcohol and Drug Abuse Patient Records regulations: The Federal rules restrict any use of the information to criminally investigate or prosecute any alcohol or drug abuse patient.[facility] HospitalIn the event this information is protected by the Federal Confidentiality of Alcohol and Drug Abuse Patient Records regulations: The Federal rules restrict any use of the information to criminally investigate or prosecute any alcohol or drug abuse patient.[facility] HospitalIn the event this information is protected by the Federal Confidentiality of Alcohol and Drug Abuse Patient Records regulations: The Federal rules restrict any use of the information to criminally investigate or prosecute any alcohol or drug abuse patient.[facility] HospitalIn the event this information is protected by the Federal Confidentiality of Alcohol and Drug Abuse Patient Records regulations: The Federal rules restrict any use of the information to criminally investigate or prosecute any alcohol or drug abuse patient.[facility] HospitalIn the event this information is protected by the Federal Confidentiality of Alcohol and Drug Abuse Patient Records regulations: The Federal rules restrict any use of the information to criminally investigate or prosecute any alcohol or drug abuse patient.[facility] HospitalIn the event this information is protected by the Federal Confidentiality of Alcohol and Drug Abuse Patient Records regulations: The Federal rules restrict any use of the information to criminally investigate or prosecute any alcohol or drug abuse patient.[facility] HospitalIn the event this information is protected by the Federal Confidentiality of Alcohol and Drug Abuse Patient Records regulations: The Federal rules restrict any use of the information to criminally investigate or prosecute any alcohol or drug abuse patient.[facility] HospitalIn the event this information is protected by the Federal Confidentiality of Alcohol and Drug Abuse Patient Records regulations: The Federal rules restrict any use of the information to criminally investigate or prosecute any alcohol or drug abuse patient.[facility] HospitalIn the event this information is protected by the Federal Confidentiality of Alcohol and Drug Abuse Patient Records regulations: The Federal rules restrict any use of the information to criminally investigate or prosecute any alcohol or drug abuse patient.[facility] HospitalIn the event this information is protected by the Federal Confidentiality of Alcohol and Drug Abuse Patient Records regulations: The Federal rules restrict any use of the information to criminally investigate or prosecute any alcohol or drug abuse patient.[facility] HospitalIn the event this information is protected by the Federal Confidentiality of Alcohol and Drug Abuse Patient Records regulations: The Federal rules restrict any use of the information to criminally investigate or prosecute any alcohol or drug abuse patient.[facility] HospitalIn the event this information is protected by the Federal Confidentiality of Alcohol and Drug Abuse Patient Records regulations: The Federal rules restrict any use of the information to criminally investigate or prosecute any alcohol or drug abuse patient.[facility] HospitalIn the event this information is protected by the Federal Confidentiality of Alcohol and Drug Abuse Patient Records regulations: The Federal rules restrict any use of the information to criminally investigate or prosecute any alcohol or drug abuse patient.[facility] HospitalIn the event this information is protected by the Federal Confidentiality of Alcohol and Drug Abuse Patient Records regulations: The Federal rules restrict any use of the information to criminally investigate or prosecute any alcohol or drug abuse patient.[facility] HospitalIn the event this information is protected by the Federal Confidentiality of Alcohol and Drug Abuse Patient Records regulations: The Federal rules restrict any use of the information to criminally investigate or prosecute any alcohol or drug abuse patient.[facility] HospitalIn the event this information is protected by the Federal Confidentiality of Alcohol and Drug Abuse Patient Records regulations: The Federal rules restrict any use of the information to criminally investigate or prosecute any alcohol or drug abuse patient.[facility] HospitalIn the event this information is protected by the Federal Confidentiality of Alcohol and Drug Abuse Patient Records regulations: The Federal rules restrict any use of the information to criminally investigate or prosecute any alcohol or drug abuse patient.[facility] HospitalIn the event this information is protected by the Federal Confidentiality of Alcohol and Drug Abuse Patient Records regulations: The Federal rules restrict any use of the information to criminally investigate or prosecute any alcohol or drug abuse patient.[facility] HospitalIn the event this information is protected by the Federal Confidentiality of Alcohol and Drug Abuse Patient Records regulations: The Federal rules restrict any use of the information to criminally investigate or prosecute any alcohol or drug abuse patient.[facility] HospitalIn the event this information is protected by the Federal Confidentiality of Alcohol and Drug Abuse Patient Records regulations: The Federal rules restrict any use of the information to criminally investigate or prosecute any alcohol or drug abuse patient.[facility] HospitalIn the event this information is protected by the Federal Confidentiality of Alcohol and Drug Abuse Patient Records regulations: The Federal rules restrict any use of the information to criminally investigate or prosecute any alcohol or drug abuse patient.[facility] HospitalIn the event this information is protected by the Federal Confidentiality of Alcohol and Drug Abuse Patient Records regulations: The Federal rules restrict any use of the information to criminally investigate or prosecute any alcohol or drug abuse patient.[facility] HospitalIn the event this information is protected by the Federal Confidentiality of Alcohol and Drug Abuse Patient Records regulations: The Federal rules restrict any use of the information to criminally investigate or prosecute any alcohol or drug abuse patient.[facility] HospitalIn the event this information is protected by the Federal Confidentiality of Alcohol and Drug Abuse Patient Records regulations: The Federal rules restrict any use of the information to criminally investigate or prosecute any alcohol or drug abuse patient.[facility] HospitalIn the event this information is protected by the Federal Confidentiality of Alcohol and Drug Abuse Patient Records regulations: The Federal rules restrict any use of the information to criminally investigate or prosecute any alcohol or drug abuse patient.[facility] HospitalIn the event this information is protected by the Federal Confidentiality of Alcohol and Drug Abuse Patient Records regulations: The Federal rules restrict any use of the information to criminally investigate or prosecute any alcohol or drug abuse patient.[facility] HospitalIn the event this information is protected by the Federal Confidentiality of Alcohol and Drug Abuse Patient Records regulations: The Federal rules restrict any use of the information to criminally investigate or prosecute any alcohol or drug abuse patient.[facility] HospitalIn the event this information is protected by the Federal Confidentiality of Alcohol and Drug Abuse Patient Records regulations: The Federal rules restrict any use of the information to criminally investigate or prosecute any alcohol or drug abuse patient.[facility] HospitalIn the event this information is protected by the Federal Confidentiality of Alcohol and Drug Abuse Patient Records regulations: The Federal rules restrict any use of the information to criminally investigate or prosecute any alcohol or drug abuse patient.[facility] HospitalIn the event this information is protected by the Federal Confidentiality of Alcohol and Drug Abuse Patient Records regulations: The Federal rules restrict any use of the information to criminally investigate or prosecute any alcohol or drug abuse patient.[facility] HospitalIn the event this information is protected by the Federal Confidentiality of Alcohol and Drug Abuse Patient Records regulations: The Federal rules restrict any use of the information to criminally investigate or prosecute any alcohol or drug abuse patient.[facility] HospitalIn the event this information is protected by the Federal Confidentiality of Alcohol and Drug Abuse Patient Records regulations: The Federal rules restrict any use of the information to criminally investigate or prosecute any alcohol or drug abuse patient.[facility] HospitalIn the event this information is protected by the Federal Confidentiality of Alcohol and Drug Abuse Patient Records regulations: The Federal rules restrict any use of the information to criminally investigate or prosecute any alcohol or drug abuse patient.[facility] HospitalIn the event this information is protected by the Federal Confidentiality of Alcohol and Drug Abuse Patient Records regulations: The Federal rules restrict any use of the information to criminally investigate or prosecute any alcohol or drug abuse patient.[facility] HospitalIn the event this information is protected by the Federal Confidentiality of Alcohol and Drug Abuse Patient Records regulations: The Federal rules restrict any use of the information to criminally investigate or prosecute any alcohol or drug abuse patient.[facility] HospitalIn the event this information is protected by the Federal Confidentiality of Alcohol and Drug Abuse Patient Records regulations: The Federal rules restrict any use of the information to criminally investigate or prosecute any alcohol or drug abuse patient.[facility] HospitalIn the event this information is protected by the Federal Confidentiality of Alcohol and Drug Abuse Patient Records regulations: The Federal rules restrict any use of the information to criminally investigate or prosecute any alcohol or drug abuse patient.[facility] HospitalIn the event this information is protected by the Federal Confidentiality of Alcohol and Drug Abuse Patient Records regulations: The Federal rules restrict any use of the information to criminally investigate or prosecute any alcohol or drug abuse patient.[facility] HospitalIn the event this information is protected by the Federal Confidentiality of Alcohol and Drug Abuse Patient Records regulations: The Federal rules restrict any use of the information to criminally investigate or prosecute any alcohol or drug abuse patient.[facility] HospitalIn the event this information is protected by the Federal Confidentiality of Alcohol and Drug Abuse Patient Records regulations: The Federal rules restrict any use of the information to criminally investigate or prosecute any alcohol or drug abuse patient.[facility] HospitalIn the event this information is protected by the Federal Confidentiality of Alcohol and Drug Abuse Patient Records regulations: The Federal rules restrict any use of the information to criminally investigate or prosecute any alcohol or drug abuse patient.[facility] HospitalIn the event this information is protected by the Federal Confidentiality of Alcohol and Drug Abuse Patient Records regulations: The Federal rules restrict any use of the information to criminally investigate or prosecute any alcohol or drug abuse patient.[facility] HospitalIn the event this information is protected by the Federal Confidentiality of Alcohol and Drug Abuse Patient Records regulations: The Federal rules restrict any use of the information to criminally investigate or prosecute any alcohol or drug abuse patient.[facility] HospitalIn the event this information is protected by the Federal Confidentiality of Alcohol and Drug Abuse Patient Records regulations: The Federal rules restrict any use of the information to criminally investigate or prosecute any alcohol or drug abuse patient.[facility] HospitalIn the event this information is protected by the Federal Confidentiality of Alcohol and Drug Abuse Patient Records regulations: The Federal rules restrict any use of the information to criminally investigate or prosecute any alcohol or drug abuse patient.[facility] HospitalIn the event this information is protected by the Federal Confidentiality of Alcohol and Drug Abuse Patient Records regulations: The Federal rules restrict any use of the information to criminally investigate or prosecute any alcohol or drug abuse patient.[facility] HospitalIn the event this information is protected by the Federal Confidentiality of Alcohol and Drug Abuse Patient Records regulations: The Federal rules restrict any use of the information to criminally investigate or prosecute any alcohol or drug abuse patient.[facility] HospitalIn the event this information is protected by the Federal Confidentiality of Alcohol and Drug Abuse Patient Records regulations: The Federal rules restrict any use of the information to criminally investigate or prosecute any alcohol or drug abuse patient.[facility] HospitalIn the event this information is protected by the Federal Confidentiality of Alcohol and Drug Abuse Patient Records regulations: The Federal rules restrict any use of the information to criminally investigate or prosecute any alcohol or drug abuse patient.[facility] HospitalIn the event this information is protected by the Federal Confidentiality of Alcohol and Drug Abuse Patient Records regulations: The Federal rules restrict any use of the information to criminally investigate or prosecute any alcohol or drug abuse patient.[facility] HospitalIn the event this information is protected by the Federal Confidentiality of Alcohol and Drug Abuse Patient Records regulations: The Federal rules restrict any use of the information to criminally investigate or prosecute any alcohol or drug abuse patient.[facility] HospitalIn the event this information is protected by the Federal Confidentiality of Alcohol and Drug Abuse Patient Records regulations: The Federal rules restrict any use of the information to criminally investigate or prosecute any alcohol or drug abuse patient.[facility] HospitalIn the event this information is protected by the Federal Confidentiality of Alcohol and Drug Abuse Patient Records regulations: The Federal rules restrict any use of the information to criminally investigate or prosecute any alcohol or drug abuse patient.[facility] HospitalIn the event this information is protected by the Federal Confidentiality of Alcohol and Drug Abuse Patient Records regulations: The Federal rules restrict any use of the information to criminally investigate or prosecute any alcohol or drug abuse patient.[facility] HospitalIn the event this information is protected by the Federal Confidentiality of Alcohol and Drug Abuse Patient Records regulations: The Federal rules restrict any use of the information to criminally investigate or prosecute any alcohol or drug abuse patient.[facility] HospitalIn the event this information is protected by the Federal Confidentiality of Alcohol and Drug Abuse Patient Records regulations: The Federal rules restrict any use of the information to criminally investigate or prosecute any alcohol or drug abuse patient.[facility] HospitalIn the event this information is protected by the Federal Confidentiality of Alcohol and Drug Abuse Patient Records regulations: The Federal rules restrict any use of the information to criminally investigate or prosecute any alcohol or drug abuse patient.[facility] HospitalIn the event this information is protected by the Federal Confidentiality of Alcohol and Drug Abuse Patient Records regulations: The Federal rules restrict any use of the information to criminally investigate or prosecute any alcohol or drug abuse patient.[facility] HospitalIn the event this information is protected by the Federal Confidentiality of Alcohol and Drug Abuse Patient Records regulations: The Federal rules restrict any use of the information to criminally investigate or prosecute any alcohol or drug abuse patient.[facility] HospitalIn the event this information is protected by the Federal Confidentiality of Alcohol and Drug Abuse Patient Records regulations: The Federal rules restrict any use of the information to criminally investigate or prosecute any alcohol or drug abuse patient.[facility] HospitalIn the event this information is protected by the Federal Confidentiality of Alcohol and Drug Abuse Patient Records regulations: The Federal rules restrict any use of the information to criminally investigate or prosecute any alcohol or drug abuse patient.[facility] HospitalIn the event this information is protected by the Federal Confidentiality of Alcohol and Drug Abuse Patient Records regulations: The Federal rules restrict any use of the information to criminally investigate or prosecute any alcohol or drug abuse patient.[facility] HospitalIn the event this information is protected by the Federal Confidentiality of Alcohol and Drug Abuse Patient Records regulations: The Federal rules restrict any use of the information to criminally investigate or prosecute any alcohol or drug abuse patient.[facility] HospitalIn the event this information is protected by the Federal Confidentiality of Alcohol and Drug Abuse Patient Records regulations: The Federal rules restrict any use of the information to criminally investigate or prosecute any alcohol or drug abuse patient.[facility] HospitalIn the event this information is protected by the Federal Confidentiality of Alcohol and Drug Abuse Patient Records regulations: The Federal rules restrict any use of the information to criminally investigate or prosecute any alcohol or drug abuse patient.[facility] HospitalIn the event this information is protected by the Federal Confidentiality of Alcohol and Drug Abuse Patient Records regulations: The Federal rules restrict any use of the information to criminally investigate or prosecute any alcohol or drug abuse patient.[facility] HospitalIn the event this information is protected by the Federal Confidentiality of Alcohol and Drug Abuse Patient Records regulations: The Federal rules restrict any use of the information to criminally investigate or prosecute any alcohol or drug abuse patient.[facility] HospitalIn the event this information is protected by the Federal Confidentiality of Alcohol and Drug Abuse Patient Records regulations: The Federal rules restrict any use of the information to criminally investigate or prosecute any alcohol or drug abuse patient.[facility] HospitalIn the event this information is protected by the Federal Confidentiality of Alcohol and Drug Abuse Patient Records regulations: The Federal rules restrict any use of the information to criminally investigate or prosecute any alcohol or drug abuse patient.[facility] HospitalIn the event this information is protected by the Federal Confidentiality of Alcohol and Drug Abuse Patient Records regulations: The Federal rules restrict any use of the information to criminally investigate or prosecute any alcohol or drug abuse patient.[facility] HospitalIn the event this information is protected by the Federal Confidentiality of Alcohol and Drug Abuse Patient Records regulations: The Federal rules restrict any use of the information to criminally investigate or prosecute any alcohol or drug abuse patient.[facility] HospitalIn the event this information is protected by the Federal Confidentiality of Alcohol and Drug Abuse Patient Records regulations: The Federal rules restrict any use of the information to criminally investigate or prosecute any alcohol or drug abuse patient.[facility] HospitalIn the event this information is protected by the Federal Confidentiality of Alcohol and Drug Abuse Patient Records regulations: The Federal rules restrict any use of the information to criminally investigate or prosecute any alcohol or drug abuse patient.[facility] HospitalIn the event this information is protected by the Federal Confidentiality of Alcohol and Drug Abuse Patient Records regulations: The Federal rules restrict any use of the information to criminally investigate or prosecute any alcohol or drug abuse patient.[facility] HospitalIn the event this information is protected by the Federal Confidentiality of Alcohol and Drug Abuse Patient Records regulations: The Federal rules restrict any use of the information to criminally investigate or prosecute any alcohol or drug abuse patient.[facility] HospitalIn the event this information is protected by the Federal Confidentiality of Alcohol and Drug Abuse Patient Records regulations: The Federal rules restrict any use of the information to criminally investigate or prosecute any alcohol or drug abuse patient.[facility] HospitalIn the event this information is protected by the Federal Confidentiality of Alcohol and Drug Abuse Patient Records regulations: The Federal rules restrict any use of the information to criminally investigate or prosecute any alcohol or drug abuse patient.[facility] HospitalIn the event this information is protected by the Federal Confidentiality of Alcohol and Drug Abuse Patient Records regulations: The Federal rules restrict any use of the information to criminally investigate or prosecute any alcohol or drug abuse patient.[facility] HospitalIn the event this information is protected by the Federal Confidentiality of Alcohol and Drug Abuse Patient Records regulations: The Federal rules restrict any use of the information to criminally investigate or prosecute any alcohol or drug abuse patient.[facility] HospitalIn the event this information is protected by the Federal Confidentiality of Alcohol and Drug Abuse Patient Records regulations: The Federal rules restrict any use of the information to criminally investigate or prosecute any alcohol or drug abuse patient.[facility] HospitalIn the event this information is protected by the Federal Confidentiality of Alcohol and Drug Abuse Patient Records regulations: The Federal rules restrict any use of the information to criminally investigate or prosecute any alcohol or drug abuse patient.[facility] HospitalIn the event this information is protected by the Federal Confidentiality of Alcohol and Drug Abuse Patient Records regulations: The Federal rules restrict any use of the information to criminally investigate or prosecute any alcohol or drug abuse patient.[facility] HospitalIn the event this information is protected by the Federal Confidentiality of Alcohol and Drug Abuse Patient Records regulations: The Federal rules restrict any use of the information to criminally investigate or prosecute any alcohol or drug abuse patient.[facility] HospitalIn the event this information is protected by the Federal Confidentiality of Alcohol and Drug Abuse Patient Records regulations: The Federal rules restrict any use of the information to criminally investigate or prosecute any alcohol or drug abuse patient.[facility] HospitalIn the event this information is protected by the Federal Confidentiality of Alcohol and Drug Abuse Patient Records regulations: The Federal rules restrict any use of the information to criminally investigate or prosecute any alcohol or drug abuse patient.[facility] HospitalIn the event this information is protected by the Federal Confidentiality of Alcohol and Drug Abuse Patient Records regulations: The Federal rules restrict any use of the information to criminally investigate or prosecute any alcohol or drug abuse patient.[facility] HospitalIn the event this information is protected by the Federal Confidentiality of Alcohol and Drug Abuse Patient Records regulations: The Federal rules restrict any use of the information to criminally investigate or prosecute any alcohol or drug abuse patient.[facility] HospitalIn the event this information is protected by the Federal Confidentiality of Alcohol and Drug Abuse Patient Records regulations: The Federal rules restrict any use of the information to criminally investigate or prosecute any alcohol or drug abuse patient.[facility] HospitalIn the event this information is protected by the Federal Confidentiality of Alcohol and Drug Abuse Patient Records regulations: The Federal rules restrict any use of the information to criminally investigate or prosecute any alcohol or drug abuse patient.[facility] HospitalIn the event this information is protected by the Federal Confidentiality of Alcohol and Drug Abuse Patient Records regulations: The Federal rules restrict any use of the information to criminally investigate or prosecute any alcohol or drug abuse patient.[facility] HospitalIn the event this information is protected by the Federal Confidentiality of Alcohol and Drug Abuse Patient Records regulations: The Federal rules restrict any use of the information to criminally investigate or prosecute any alcohol or drug abuse patient.[facility] HospitalIn the event this information is protected by the Federal Confidentiality of Alcohol and Drug Abuse Patient Records regulations: The Federal rules restrict any use of the information to criminally investigate or prosecute any alcohol or drug abuse patient.[facility] HospitalIn the event this information is protected by the Federal Confidentiality of Alcohol and Drug Abuse Patient Records regulations: The Federal rules restrict any use of the information to criminally investigate or prosecute any alcohol or drug abuse patient.[facility] Reason for Visit (unrecogniz ed section and content) Reason Onset Date Comments Transition Of Care 09/14/2021 TCM Initial M [facility] Discharge 09/13/21 Reason Onset Date Comments Transition Of Care 09/14/2021 TCM Pharmacy- Hospital discharge 09/13/21 Reason Comments Recheck Hosp follow up Specialty Diagnoses / Procedures Referred By Contac t Referred To Contact Internal Medicine / INTERNAL MEDICINE Diagnoses hospital follow up Procedures 4C EST HOSP/ER FU Hans Contreras [address] [place] [address] Anjel Braga APRN.FIELD DIRECTOR [address] [place] [address] Referral ID Status Reason Start Date Expiration Date V isits Requested Visits Authorized [id number] Closed Financial Clearance Required - OON Payor Patient Cleared INN/SMCP Payor Auth Obtained 09/15/2021 06/18/2022 1 1 Reason Comments Patient Update Reason Comments Medication Problem Plan of Care Reason Comments Nifedipine issue Reason Onset Date Comments Transition Of Care 09/16/2021 [facility] Discharge 09/13/21 Reason Comments FYI-OT plan of care Reason Comments Anticoagulation Reason Comments Orders Reason Comments medication issue Reason Comments [facility] verbal order needed Reason Comments Medication Problem Reason Comments Consult gallbladder, abdomen pain Specialty Diagnoses / Procedures Referred By Contac t Referred To Contact General Surgery / GENERAL SURGERY Diagnoses Acute cholecystitis Abdominal pain Acute cholecystitis, persistent abdominal pain Procedures OFFICE/OUTPATIENT NEW MODERATE MDM 45-59 MINUTES NEW DDI PATIENT Adelaida Farias MD [address] [place] [address] Kaye Ortega MD [address] [facility] [address] [place] [address] Referral ID Status Reason Start Date Expiration Date V isits Requested Visits Authorized [id number] Closed Financial Clearance Required - OON Payor Patient Cleared INN/SMCP Payor Auth Obtained 09/08/2021 06/18/2022 1 1 Reason Comments Patient Question visit from 09/15/21 Reason Comments Patient Question Reason Comments Appointment CONSULT FOR CHOLECYS TECTOMY Reason Comments Appointment Reason Onset Date Comments Transition Of Care 09/21/2021 [facility] Discharge 09/13/21 Reason Comments Work excuse letter Reason Onset Date Comments Transition Of Care 09/29/2021 [facility] Discharge 09/13/21 Reason Onset Date Comments Refill Request 10/04/2021 Reason Comments Hypertension Specialty Diagnoses / Procedures Referred By Contac t Referred To Contact Internal Medicine / INTERNAL MEDICINE Diagnoses 09/13 ER Discharge main campus Broken ribs follow up Procedures 4C EST HOSP/ER FU Daiaj Morton MD [address] [place] [address] Anjel Braga APRN.LAMIN [address] [place] [address] Referral ID Status Reason Start Date Expiration Date Visits Re quested Visits Authorized [id number] Closed 10/07/2021 06/18/2022 1 1 Reason Comments Coumadin update / [place] Reason Comments Patient Update Orders Reason Comments [...] VOL VNTJ Emilie Jauregui PA-C [address] [place] [address] [place] [address] Referral ID Status Reason Start Date Expiration Date V isits Requested Visits Authorized [id number] Closed Auto-Generate d Referral 11/05/2021 06/18/2022 1 1 Specialty Diagnoses / Procedures Referred By Contac t Referred To Contact [facility] Diagnoses COPD with chronic bronchitis (HCC) Procedures OXIMETRY WITH AMBULATION NONINVASIVE EAR/PULSE OXIMETRY MULTIPLE DETER Emilie Jauregui PA-C [address] [place] [address] [id number] [address] Referral ID Status Reason Start Date Expiration Date V isits Requested Visits Authorized [id number] Closed Auto-Generate d Referral 11/05/2021 06/18/2022 1 1 Specialty Diagnoses / Procedures Referred By Contac t Referred To Contact Pulmonary and Critical Care Medicine / PULMONARY MEDICINE Diagnoses pre op clearance for gen surgery Procedures RI EST PULM GENERAL Daija Morton MD [address] [place] [address] Emilie Jauregui PA-C [address] [address] Referral ID Status Reason Start Date Expiration Date Visits Re quested Visits Authorized [id number] Closed 10/21/2021 06/18/2022 1 1 Reason Comments Results Reason Comments Cardiac Clearance surgery to have gall bladder removed Reason Comments UTI Specialty Diagnoses / Procedures Referred By Contac t Referred To Contact Internal Medicine / INTERNAL MEDICINE Diagnoses Essential hypertension UTI Procedures OFFICE/OUTPATIENT ESTABLISHED MOD MDM 30-39 MIN 4C EST Anjel Segura, [employer] SUPERVISOR.FIELD DIRECTOR [address] [place] [address] Referral ID Status Reason Start Date Expiration Date Visits Re quested Visits Authorized [id number] Closed 11/17/2021 06/18/2022 1 1 Reason Onset Date Comments Refill Request 11/18/2021 Reason Onset Date Comments Refill Request 11/19/2021 Reason Comments Medication Request Reason Comments Clinical Update Reason Comments Patient Update Medication Request Reason Comments Appointment 01/14 ED F/U-need ED location to retrieve records Reason Comments ER F/U [facility] Specialty Diagnoses / Procedures Referred By Contac t Referred To Contact Internal Medicine / INTERNAL MEDICINE Diagnoses Follow-up examination hospital f/u Procedures OFFICE/OUTPATIENT ESTABLISHED MOD MDM 30-39 MIN 4C EST HOSP/ER MD Roosevelt Marks Terri, NATURAL GAS PLANT SUPERVISOR.REFINERY OPERATOR COKING [address] [place] [address] Referral ID Status Reason Start Date Expiration Date Visits Re quested Visits Authorized [id number] Closed 01/14/2022 06/18/2022 1 1 Reason Comments Established Patient follow up anand r Reason Comments Recheck Follow up, Hosp foll ow up Specialty Diagnoses / Procedures Referred By Contac t Referred To Contact Internal Medicine / INTERNAL MEDICINE Diagnoses [facility] ER f/u. 01-25-22. Black stool. Procedures 4C EST HOSP/ER MD Omi Marks Joy, APRN.FIELD DIRECTOR [address] [place] [address] Referral ID Status Reason Start Date Expiration Date Visits Re quested Visits Authorized [id number] Closed 01/28/2022 04/28/2022 1 1 Reason Comments Follow Up Specialty Diagnoses / Procedures Referred By Contac t Referred To Contact Vascular Surgery / VASCULAR SURGERY Diagnoses PVD 1 year f/u with PVR and arterial Duplex [place] [address] [place] [address] [place] [address] [place] [address] Referral ID Status Reason Start Date Expiration Date Visits Re quested Visits Authorized [id number] Closed 01/31/2022 06/18/2022 1 1 Reason Comments Results, Lab Reason Onset Date Comments Refill Request 02/22/2022 Reason Comments Erroneous encounter-disregard Reason Comments Fall Reason Comments SWCC orders needed today Reason Comments admit to [facility] Reason Comments Social Work Services Reason Comments Medication Question Reason Comments Syncope Reason Onset Date Comments Refill Request 08/25/2022 Patient Update 08/25/2022 Reason Comments [facility] follow-up Reason Onset Date Comments Refill Request 08/29/2022 Reason Comments Refill Request [facility] Request Reason Comments patient problem Reason Onset Date Comments Refill Request 09/30/2022 Reason Onset Date Comments Refill Request 01/27/2023 Reason Onset Date Comments Refill Request 02/24/2023 Reason Comments Need verbal for [facility] Reason Onset Date Comments Refill Request 05/30/2023 [...] fix this, also fell twice while in [facility] Reason Comments Mental status change Reason Comments No Show Reason Onset Date Comments Refill Request 01/23/2024 Reason Onset Date Comments Refill Request 03/12/2024 Reason Comments UTI Foul odor, confusion Reason Comments Home Health Orders Reason Comments [facility] [employer] update Reason Comments Home Care Management Patient Update Reason Comments [facility] discharge Gem guzman Reason Onset Date Comments Refill Request 12/13/2024 Reason Comments Jarett requesting records Reason Onset Date Comments Refill Request 12/16/2024 Reason Onset Date Comments Refill Request 01/17/2025 Care Teams (unrecognized sec tion and content) Orderly Relationship Specialty Start Date End Date Daija Morton MD [address] [place] [address] PCP - General Internal Medicine 03/21/17 Beatriz Correa CNP Referring 09/28/20 Daija Morton MD [address] [place] [address] Home Care Physician Internal Medicine 09/28/20 13, Pharmacist [id number] [place] [address] Pharmacist Pharmacy 06/17/21 Lizette Ulloa RN [address] [place] [address] Primary Care Warehouse Laborer Internal Medicine 09/14/21 10/14/21 Tamika Almaguer PASSPORT Shellfish Processing Laborer 09/26/17 Orderly Relationship Specialty Start Date End Date Daija Morton MD [address] [place] [address] PCP - General Internal Medicine 03/21/17 Beatriz Correa CNP Referring 09/28/20 Daija Morton MD [address] [place] [address] Home Care Physician Internal Medicine 09/28/20 13, Pharmacist [phone] [place] [address] Pharmacist Pharmacy 06/17/21 Lizette Ulloa, RN [address] [place] [address] Primary Care Warehouse Laborer Internal Medicine 09/14/21 10/14/21 Tamika Almaguer PASSPORT Shellfish Processing Laborer 09/26/17 Orderly Relationship Specialty Start Date End Date Daija Morton MD [address] [place] [address] PCP - General Internal Medicine 03/21/17 Beatriz Correa, FIELD DIRECTOR Referring 09/28/20 Daija Morton MD [address] [place] [address] Home Care Physician Internal Medicine 09/28/20 13, Pharmacist [id number] [place] [address] Pharmacist Pharmacy 06/17/21 Lizette Ulloa, RN [address] [place] [address] Primary Care Warehouse Laborer Internal Medicine 09/14/21 10/14/21 Tamika Almaguer PASSPORT Shellfish Processing Laborer 09/26/17 Orderly Relationship Specialty Start Date End Date Daija Morton MD [address] [place] [address] PCP - General Internal Medicine 03/21/17 Beatriz Correa, FIELD DIRECTOR Referring 09/28/20 Daija Morton MD [address] [place] [address] Home Care Physician Internal Medicine 09/28/20 13, Pharmacist [phone] [place] [address] Pharmacist Pharmacy 06/17/21 Lizette Ulloa, RN [address] [place] [address] Primary Care Warehouse Laborer Internal Medicine 09/14/21 10/14/21 Tamika Almaguer PASSPORT Shellfish Processing Laborer 09/26/17 Orderly Relationship Specialty Start Date End Date Daija Morton MD [address] [place] [address] PCP - General Internal Medicine 03/21/17 Beatriz Correa CNP Referring 09/28/20 Daija Morton MD [address] [place] [address] Home Care Physician Internal Medicine 09/28/20 13, Pharmacist [phone] [place] [address] Pharmacist Pharmacy 06/17/21 Lizette Ulloa, [address] [place] [address] Primary Care Warehouse Laborer Internal Medicine 09/14/21 10/14/21 Tamika HARRELL Shellfish Processing Laborer 09/26/17 Orderly Relationship Specialty Start Date End Date Daija Morton MD [address] [place] [address] PCP - General Internal Medicine 03/21/17 Beatriz Correa CNP Referring 09/28/20 Daija Morton MD [address] [place] [address] Home Care Physician Internal Medicine 09/28/20 13, Pharmacist [phone] [place] [address] Pharmacist Pharmacy 06/17/21 Lizette Ulloa, [address] [place] [address] Primary Care Warehouse Laborer Internal Medicine 09/14/21 10/14/21 Tamika HARRELL Shellfish Processing Laborer 09/26/17 Orderly Relationship Specialty Start Date End Date Daija Morton MD [address] [place] [address] PCP - General Internal Medicine 03/21/17 Beatriz Correa CNP Referring 09/28/20 Daija Morton MD [address] [place] [address] Home Care Physician Internal Medicine 09/28/20 13, Pharmacist [id number] [place] [address] Pharmacist Pharmacy 06/17/21 Lizette Ulloa, RN [address] [place] [address] Primary Care Warehouse Laborer Internal Medicine 09/14/21 10/14/21 Tamika Almaguer [employer] Shellfish Processing Laborer 09/26/17 Orderly Relationship Specialty Start Date End Date Daija Morton MD [address] [place] [address] PCP - General Internal Medicine 03/21/17 Beatriz Correa, FIELD DIRECTOR Referring 09/28/20 Daija Morton MD [address] [place] [address] Home Care Physician Internal Medicine 09/28/20 13, Pharmacist [phone] [place] [address] Pharmacist Pharmacy 06/17/21 Lizette Ulloa, [address] [place] [address] Primary Care Warehouse Laborer Internal Medicine 09/14/21 10/14/21 Kaye Ortega MD [address] [place] [address] General Surgery 09/21/21 Tamika Almaguer PASSANYI Shellfish Processing Laborer 09/26/17 Orderly Relationship Specialty Start Date End Date Daija Morton MD [address] [place] [address] PCP - General Internal Medicine 03/21/17 Beatriz Correa, FIELD DIRECTOR Referring 09/28/20 Daija Morton MD [address] [place] [address] Home Care Physician Internal Medicine 09/28/20 13, Pharmacist [phone] [place] [address] Pharmacist Pharmacy 06/17/21 Lizette Ulloa, [address] [facility] [place] [address] Primary Care Warehouse Laborer Internal Medicine 09/14/21 10/14/21 Kaye Ortega MD [address] [place] [address] General Surgery 09/21/21 Tamika HARRELL Shellfish Processing Laborer 09/26/17 Orderly Relationship Specialty Start Date End Date Daija Morton MD [address] [place] [address] PCP - General Internal Medicine 03/21/17 Beatriz Correa CNP Referring 09/28/20 Daija Morton MD [address] [place] [address] Home Care Physician Internal Medicine 09/28/20 13, Pharmacist [phone] [place] [address] Pharmacist Pharmacy 06/17/21 Lizette Ulloa, [address] [place] [address] Primary Care Warehouse Laborer Internal Medicine 09/14/21 10/14/21 Kaye Ortega MD [address] [place] [address] General Surgery 09/21/21 Tamika HARRELL Shellfish Processing Laborer 09/26/17 Orderly Relationship Specialty Start Date End Date Daija Morton MD [address] [place] [address] PCP - General Internal Medicine 03/21/17 Beatriz Correa, LAMIN Referring 09/28/20 Daija Morton MD [address] [place] [address] Home Care Physician Internal Medicine 09/28/20 13, Pharmacist [phone] [place] [address] Pharmacist Pharmacy 06/17/21 Lizette Ulloa RN [address] [place] [address] Primary Care Warehouse Laborer Internal Medicine 09/14/21 10/14/21 Kaye Ortega MD [address] [facility] [place] [address] General Surgery 09/21/21 [facility] Shellfish Processing Laborer 09/26/17 Orderly Relationship Specialty Start Date End Date Daija Morton MD [address] [place] [address] PCP - General Internal Medicine 03/21/17 Beatriz Correa, FIELD DIRECTOR Referring 09/28/20 Daija Morton MD [address] [place] [address] Home Care Physician Internal Medicine 09/28/20 13, Pharmacist [phone] [place] [address] Pharmacist Pharmacy 06/17/21 Lizette Ulloa RN [address] [place] [address] Primary Care Warehouse Laborer Internal Medicine 09/14/21 10/14/21 Kaye Ortega MD [address] [facility] [place] [address] General Surgery 09/21/21 Tamika HARRELL Shellfish Processing Laborer 09/26/17 Orderly Relationship Specialty Start Date End Date Daija Morton MD [address] [place] [address] PCP - General Internal Medicine 03/21/17 Beatriz Correa, LAMIN Referring 09/28/20 Daija Morton MD [address] [place] [address] Home Care Physician Internal Medicine 09/28/20 13, Pharmacist [address] [place] [address] Pharmacist Pharmacy 06/17/21 Lizette Ulloa RN [address] [facility] [place] [address] Primary Care Warehouse Laborer Internal Medicine 09/14/21 10/14/21 Kaye Ortega MD [address] [facility] [place] [address] General Surgery 09/21/21 Tamika [facility] Shellfish Processing Laborer 09/26/17 Orderly Relationship Specialty Start Date End Date Daija Morton MD [address] [place] [address] PCP - General Internal Medicine 03/21/17 Beatriz Correa CNP Referring 09/28/20 Daija Morton MD [address] [place] [address] Home Care Physician Internal Medicine 09/28/20 Fco Franklin, [address] [place] [address] Restaurant Associate 10/08/20 12/21/20 13, Pharmacist [phone] [place] [address] Pharmacist Pharmacy 06/17/21 Lizette Ulloa RN [address] [facility] [place] [address] Primary Care Warehouse Laborer Internal Medicine 09/14/21 10/14/21 Kaye Ortega MD [address] [place] [address] General Surgery 09/21/21 Tamika Minimary Almaguer [employer] Shellfish Processing Laborer 09/26/17 Orderly Relationship Specialty Start Date End Date Daija Morton MD [address] [place] [address] PCP - General Internal Medicine 03/21/17 Beatriz Correa CNP Referring 09/28/20 Daija Morton MD [address] [place] [address] Home Care Physician Internal Medicine 09/28/20 13, Pharmacist [phone] [place] [address] Pharmacist Pharmacy 06/17/21 Lizette Ulloa RN [address] [place] [address] Primary Care Warehouse Laborer Internal Medicine 09/14/21 10/14/21 Kaye Ortega MD [address] [place] [address] General Surgery 09/21/21 Tamika Almaguer [employer] Shellfish Processing Laborer 09/26/17 Orderly Relationship Specialty Start Date End Date Daija Morton MD [address] [place] [address] PCP - General Internal Medicine 03/21/17 Beatriz Correa CNP Referring 09/28/20 10/12/21 Daija Morton MD [address] [place] [address] Home Care Physician Internal Medicine 09/28/20 10/12/21 13, Pharmacist [address] [place] [address] Pharmacist Pharmacy 06/17/21 Lizette Ulloa, [address] [place] [address] Primary Care Warehouse Laborer Internal Medicine 09/14/21 10/14/21 Kaye Ortega MD [address] [place] [address] General Surgery 09/21/21 Ye Coello MD [address] [place], [place] [id number] General Surgery 10/13/21 Emilie Jauregui PA-C [address] [place] [address] Specialty Colorer Hides And Skins Pulmonary and Critical Care Medicine 10/13/21 Ryan May MD [address] [place], [place] 5198195 Specialty Colorer Hides [employer] Skins Vascular Surgery 10/13/21 Geronimo Medina, DO [address] [address] Manager Trust Cardiology 10/13/21 Tamika Almaguer [facility] Shellfish Processing Laborer 09/26/17 Orderly Relationship Specialty Start Date End Date Daija Morton MD [address] [place], [place] [id number] PCP - General Internal Medicine 03/21/17 13, Pharmacist [address] [place] [address] Pharmacist Pharmacy 06/17/21 Lizette Ulloa, [address] [place] [address] Primary Care Warehouse Laborer Internal Medicine 09/14/21 10/14/21 Kaye Ortega MD [address] [place] [address] General Surgery 09/21/21 Ye Coello MD [address] [place], [place] [id number] General Surgery 10/13/21 Emilie Jauregui PA-C [address] [place], [place] [address] Specialty Colorer Hides [employer] Skins Pulmonary and Critical Care Medicine 10/13/21 Ryan May MD [address] [place] [address] Specialty Colorer Hides [employer] Skins Vascular Surgery 10/13/21 Geronimo Medina DO [address] [address] Manager Trust Cardiology 10/13/21 Tamika Almaguer [facility] Shellfish Processing Laborer 09/26/17 Orderly Relationship Specialty Start Date End Date Daija Morton MD [address] [place], [place] [id number] PCP - General Internal Medicine 03/21/17 Beatriz Correa, FIELD DIRECTOR Referring 09/28/20 10/12/21 Daija Morton MD [address] [place], [place] 099[address]691 Home Care Physician Internal Medicine 09/28/20 10/12/21 13, Pharmacist [address] [place] [address] Pharmacist Pharmacy 06/17/21 Lizette Ulloa, [address] [place] [address] Primary Care Warehouse Laborer Internal Medicine 09/14/21 10/14/21 Kaye Ortega MD [address] [place] [address] General Surgery 09/21/21 Ye Coello MD [address] [place], [place] [address]38[address] General Surgery 10/13/21 Emilie Jauregui PA-C [address] [place] [address] Specialty Colorer Hides [employer] Skins Pulmonary and Critical Care Medicine 10/13/21 Ryan May MD [address] [place] [address] Specialty Colorer Hides [employer] Skins Vascular Surgery 10/13/21 Geronimo Medina, [address] [address] Manager Trust Cardiology 10/13/21 Tamika Canales Tripp [facility] Shellfish Processing Laborer 09/26/17 Orderly Relationship Specialty Start Date End Date Daija Morton MD [address] [place] [address] PCP - General Internal Medicine 03/21/17 13, Pharmacist [phone] [place] [address] Pharmacist Pharmacy 06/17/21 Lizette Ulloa, RN [address] [place] [address] Primary Care Warehouse Laborer Internal Medicine 09/14/21 10/14/21 Kaye Ortega MD [address] [place] [address] General Surgery 09/21/21 Ye Coello MD [address] [place] [address] General Surgery 10/13/21 Emilie Jauregui PA-C [address] [place] [address] Specialty Colorer Hides And Skins Pulmonary and Critical Care Medicine 10/13/21 Ryan May MD [address] [place], [place] 1559595 Specialty Colorer Hides [employer] Skins Vascular Surgery 10/13/21 Geronimo Medina DO [address] [address] Manager Trust Cardiology 10/13/21 Tamika HARRELL Shellfish Processing Laborer 09/26/17 Orderly Relationship Specialty Start Date End Date Daija Morton MD [address] [place] [address] PCP - General Internal Medicine 03/21/17 13, Pharmacist [address] [place] [address] Pharmacist Pharmacy 06/17/21 Kaye Ortega MD [address] [place] [address] General Surgery 09/21/21 Ye Coello MD [address] [place], [place] [id number] General Surgery 10/13/21 Emilie Jauregui PA-C [address] [place], [place] 550[address] Specialty Colorer Hides [employer] Skins Pulmonary and Critical Care Medicine 10/13/21 Ryan May MD [address] [place] [address] Specialty Colorer Hides [employer] Skins Vascular Surgery 10/13/21 Geronimo Medina DO [address] [address] Manager Trust Cardiology 10/13/21 Tamika HARRELL Shellfish Processing Laborer 09/26/17 Orderly Relationship Specialty Start Date End Date Daija Morton MD [address] [place] [address] PCP - General Internal Medicine 03/21/17 13, Pharmacist [address] [place] [address] Pharmacist Pharmacy 06/17/21 Kaye Ortega MD [address] [place] [address] General Surgery 09/21/21 Ye Coello MD [address] [place], [place] [id number] General Surgery 10/13/21 Emilie Jauregui PA-C [address] [place] [address] Specialty Colorer Hides [employer] Skins Pulmonary and Critical Care Medicine 10/13/21 Ryan May MD [address] [place] [address] Specialty Colorer Hides [employer] Skins Vascular Surgery 10/13/21 Geronimo Medina, [address] [address] Manager Trust Cardiology 10/13/21 Tamika Almaguer [facility] Shellfish Processing Laborer 09/26/17 Orderly Relationship Specialty Start Date End Date Daija Morton MD [address] [place] [address] PCP - General Internal Medicine 03/21/17 13, Pharmacist [address]656 [place] [address] Pharmacist Pharmacy 06/17/21 Kaye Ortega MD [address] [place] [address] General Surgery 09/21/21 Ye Coello MD [address] [place], [place] [id number] General Surgery 10/13/21 Emilie Jauregui PA-C [address] [place] [address] Specialty Colorer Hides [employer] Skins Pulmonary and Critical Care Medicine 10/13/21 Ryan May MD [address] [place] [address] Specialty Colorer Hides [employer] Skins Vascular Surgery 10/13/21 Geronimo Medina, DO [address] [address] Manager Trust Cardiology 10/13/21 Tamika Almaguer PASSANYI Shellfish Processing Laborer 09/26/17 Orderly Relationship Specialty Start Date End Date Daija Morton MD [address] [place] [address] PCP - General Internal Medicine 03/21/17 13, Pharmacist [address] [place] [address] Pharmacist Pharmacy 06/17/21 Kaye Ortega MD [address] [place] [address] General Surgery 09/21/21 Ye Coello MD [address] [place], [place] [id number] General Surgery 10/13/21 Emilie Jauregui PA-C [address] [place], [place] 738851 Specialty Colorer Hides And Skins Pulmonary and Critical Care Medicine 10/13/21 Ryan May MD [address] [place], [place] [address] Specialty Colorer Hides [employer] Skins Vascular Surgery 10/13/21 Geronimo Medina, DO [address] [address] Manager Trust Cardiology 10/13/21 Tamika HARRELL Shellfish Processing Laborer 09/26/17 Orderly Relationship Specialty Start Date End Date Daija Morton MD [address] [place] [address] PCP - General Internal Medicine 03/21/17 13, Pharmacist [address] [place] [address] Pharmacist Pharmacy 06/17/21 Kaye Ortega MD [address] [place] [address] General Surgery 09/21/21 Ye Coello MD [address] [place], [place] [id number] General Surgery 10/13/21 Emilie Jauregui PA-C [address] [place] [address] Specialty Colorer Hides And Skins Pulmonary and Critical Care Medicine 10/13/21 Ryan May MD [address] [place] [address] Specialty Colorer Hides [employer] Skins Vascular Surgery 10/13/21 Geronimo Medina, [address] [address] Manager Trust Cardiology 10/13/21 Tamika Almaguer [facility] Shellfish Processing Laborer 09/26/17 Orderly Relationship Specialty Start Date End Date Daija Morton MD [address] [place] [address] PCP - General Internal Medicine 03/21/17 13, Pharmacist [address] [place] [address] Pharmacist Pharmacy 06/17/21 Kaye Ortega MD [address] [place] [address] General Surgery 09/21/21 Ye Coello MD [address] [place] [address] General Surgery 10/13/21 Emilie Jauregui PA-C [address] [place] [address] Specialty Colorer Hides [employer] Skins Pulmonary and Critical Care Medicine 10/13/21 Ryan May MD [address] [place], [place] 3885495 Specialty Colorer Hides [employer] Skins Vascular Surgery 10/13/21 Geronimo Medina DO [address] [address] Manager Trust Cardiology 10/13/21 Tamikadestiny Almaguer [facility] Shellfish Processing Laborer 09/26/17 Orderly Relationship Specialty Start Date End Date Daija Morton MD [address] [place], [place] 745031 PCP - General Internal Medicine 03/21/17 13, Pharmacist [address] [place] [address] Pharmacist Pharmacy 06/17/21 Kaye Ortega MD [address] [place] [address] General Surgery 09/21/21 Ye Coello MD [address] [place] [address] General Surgery 10/13/21 Emilie Jauregui PA-C [address] [place] [address] Specialty Colorer Hides And Skins Pulmonary and Critical Care Medicine 10/13/21 Ryan May MD [address] [place], [place] 2667695 Specialty Colorer Hides [employer] Skins Vascular Surgery 10/13/21 Geronimo Medina DO [address] [address] Manager Trust Cardiology 10/13/21 Tamika HARRELL Shellfish Processing Laborer 09/26/17 Orderly Relationship Specialty Start Date End Date Daija Morton MD [address] [place] [address] PCP - General Internal Medicine 03/21/17 13, Pharmacist [phone] [place] [address] Pharmacist Pharmacy 06/17/21 Kaye Ortega MD [address] [place] [address] General Surgery 09/21/21 Ye Coello MD [address] [place], [place] [id number] General Surgery 10/13/21 Emilie Jauregui PA-C [address] [place], [place] 467441 Specialty Colorer Hides [employer] Skins Pulmonary and Critical Care Medicine 10/13/21 Ryan May MD [address] [place] [address] Specialty Colorer Hides [employer] Skins Vascular Surgery 10/13/21 Geronimo Medina DO [address] [address] Manager Trust Cardiology 10/13/21 Tamika HARRELL Shellfish Processing Laborer 09/26/17 Orderly Relationship Specialty Start Date End Date Daija Morton MD [address] [place] [address] PCP - General Internal Medicine 03/21/17 13, Pharmacist [address]43 [place] [address] Pharmacist Pharmacy 06/17/21 Kaye Ortega MD [address] [place] [address] General Surgery 09/21/21 Ye Coello MD [address] [place], [place] [id number] General Surgery 10/13/21 Emilie Jauregui PA-C [address] [place], [place] 949661 Specialty Colorer Hides [employer] Skins Pulmonary and Critical Care Medicine 10/13/21 Ryan May MD [address] [place], [place] 7095595 Specialty Colorer Hides [employer] Skins Vascular Surgery 10/13/21 Geronimo Medina, [address] [address] Manager Trust Cardiology 10/13/21 Tamika Almaguer [facility] Shellfish Processing Laborer 09/26/17 Orderly Relationship Specialty Start Date End Date Daija Morton MD [address] [place] [address] PCP - General Internal Medicine 03/21/17 13, Pharmacist [address] [place] [address] Pharmacist Pharmacy 06/17/21 Kaye Ortega MD [address] [place] [address] General Surgery 09/21/21 Ye Coello MD [address] [place], [place] [id number] General Surgery 10/13/21 Emilie Jauregui PA-C [address] [place] [address] Specialty Colorer Hides [employer] Skins Pulmonary and Critical Care Medicine 10/13/21 Ryan May [facility] [address] [facility] [place] [address] Specialty Colorer Hides [employer] Skins Vascular Surgery 10/13/21 Geronimo Medina DO [address] [address] Manager Trust Cardiology 10/13/21 Tamika HARRELL Shellfish Processing Laborer 09/26/17 Orderly Relationship Specialty Start Date End Date Daija Morton MD [address] [place] [address] PCP - General Internal Medicine 03/21/17 13, Pharmacist [address] [place] [address] Pharmacist Pharmacy 06/17/21 Kaye Ortega MD [address] [place] [address] General Surgery 09/21/21 Ye Coello MD [address] [place], [place] [id number] General Surgery 10/13/21 Emilie Jauregui PA-C [address] [place] [address] Specialty Colorer Hides [employer] Skins Pulmonary and Critical Care Medicine 10/13/21 Ryan May MD [address] [facility] [place] [address] Specialty Colorer Hides [employer] Skins Vascular Surgery 10/13/21 Geronimo Medina DO [address] [address] Manager Trust Cardiology 10/13/21 Tamika HARRELL Shellfish Processing Laborer 09/26/17 Orderly Relationship Specialty Start Date End Date Daija Morton MD [address] [place] [address] PCP - General Internal Medicine 03/21/17 13, Pharmacist [address] [place] [address] Pharmacist Pharmacy 06/17/21 Kaye Ortega MD [address] [place] [address] General Surgery 09/21/21 Ye Coello MD [address] [place], [place] [id number] General Surgery 10/13/21 Emilie Jauregui PANeshaC [address] [place] [address] Specialty Colorer Hides And Skins Pulmonary and Critical Care Medicine 10/13/21 Ryan May MD [address] [place] [address] Specialty Colorer Hides [employer] Skins Vascular Surgery 10/13/21 Geronimo Medina, DO [address] [address] Manager Trust Cardiology 10/13/21 Tamika Almaguer [facility] Shellfish Processing Laborer 09/26/17 Orderly Relationship Specialty Start Date End Date Daija Morton MD [address] [place] [address] PCP - General Internal Medicine 03/21/17 13, Pharmacist [address] [place] [address] Pharmacist Pharmacy 06/17/21 Kaye Ortega MD [address] [place] [address] General Surgery 09/21/21 Ye Coello MD [address] [place] [address] General Surgery 10/13/21 Emilie Jauregui PA-C [address] [place] [address] Specialty Colorer Hides [employer]kins Pulmonary and Critical Care Medicine 10/13/21 Ryan May MD [address] [place], [place] 7925895 Specialty Colorer H[employer] Vascular Surgery 10/13/21 Geronimo Medina, [address] [address] Manager Trust Cardiology 10/13/21 Tamika Almaguer [employer] Shellfish Processing Laborer 09/26/17 Orderly Relationship Specialty Start Date End Date Daija Morton MD [address] [place], [place] 782001 PCP - General Internal Medicine 03/21/17 13, Pharmacist [address] [place] [address] Pharmacist Pharmacy 06/17/21 Kaye Ortega MD [address] [place] [address] General Surgery 09/21/21 Ye Coello MD [address] [place], [place] [id number] General Surgery 10/13/21 Emilie Jauregui PA-C [address] [place], [place] 756481 Specialty Colorer Hides [employer]kins Pulmonary and Critical Care Medicine 10/13/21 Ryan May MD [address] [place], [place] 5723595 Specialty Colorer Hides [employer] Skins Vascular Surgery 10/13/21 Geronimo Medina DO [address] [address] Manager Trust Cardiology 10/13/21 Tamika Almaguer [employer] Shellfish Processing Laborer 09/26/17 Orderly Relationship Specialty Start Date End Date Daija Morton MD [address] [place] [address] PCP - General Internal Medicine 03/21/17 13, Pharmacist [address] [place] [address] Pharmacist Pharmacy 06/17/21 Kaye Ortega MD [address] [place] [address] General Surgery 09/21/21 Ye Coello MD [address] [place], [place] [id number] General Surgery 10/13/21 Emilie Jauregui PA-C [address] [place] [address] Specialty Colorer [employer] Pulmonary and Critical Care Medicine 10/13/21 Ryan May MD [address] [place], [place] 8614995 Specialty Colorer Hides [employer] Vascular Surgery 10/13/21 Geronimo Medina, DO [address] [address] Manager Trust Cardiology 10/13/21 Tamika Almaguer [employer] Shellfish Processing Laborer 09/26/17 Orderly Relationship Specialty Start Date End Date Daija Morton MD [address] [place] [address] PCP - General Internal Medicine 03/21/17 13, Pharmacist [address] [place] [address] Pharmacist Pharmacy 06/17/21 Kaye Ortega MD [address] [place] [address] General Surgery 09/21/21 Ye Coello MD [address] [place], [place] [id number] General Surgery 10/13/21 Emilie Jauregui PA-C [address] [place] [address] Specialty Colorer [employer] Pulmonary and Critical Care Medicine 10/13/21 Ryan May MD [address] [place] [address] Specialty Colorer [employer] Vascular Surgery 10/13/21 Geronimo Medina DO [address] [address] Manager Trust Cardiology 10/13/21 Tamika Almaguer [facility] Shellfish Processing Laborer 09/26/17 Orderly Relationship Specialty Start Date End Date Daija Morton MD [address] [place], [place] 607467 [phone] PCP - General Internal Medicine 03/21/17 13, Pharmacist [address] [place], [place] [phone] Pharmacist Pharmacy 06/17/21 Kaye Ortega MD [address] [place] [address] General Surgery 09/21/21 Ye Coello MD [address] [place], [place] [id number] General Surgery 10/13/21 Emilie Jauregui PA-C [address] [place] [address] Specialty Colorer [employer] Pulmonary and Critical Care Medicine 10/13/21 Ryan May [facility] [address] [facility] [place] [address] Specialty Colorer [employer] Vascular Surgery 10/13/21 Geronimo Medina DO [address] [address] Manager Trust Card[employer] 10/13/21 Tamika HARRELL Shellfish Processing Laborer 09/26/17 Orderly Relationship Specialty Start Date End Date Daija Morton MD [address] [place] [address] PCP - General Internal Medicine 03/21/17 13, Pharmacist [address] [place] [address] Pharmacist Pharmacy 06/17/21 Kaye Ortega MD [address] [place] [address] General Surgery 09/21/21 Ye Coello MD [address] [place], [place] [id number] General Surgery 10/13/21 Emilie Jauregui PA-C [address] [place] [address] Specialty Colorer [employer] Pulmonary and Critical Care Medicine 10/13/21 Ryan May MD [address] [place] [address] Specialty Colorer [employer] Vascular Surgery 10/13/21 Geronimo Medina DO [address] [address] Manager [employer] 10/13/21 Tamika HARRELL Shellfish Processing Laborer 09/26/17 Orderly Relationship Specialty Start Date End Date Daija Morton MD [address] [place] [address] PCP - General Internal Medicine 03/21/17 13, Pharmacist [address] [place] [address] Pharmacist Pharmacy 06/17/21 Kaye Ortega MD [address] [place] [address] General Surgery 09/21/21 Ye Coello MD [address] [place], [place] [id number] General Surgery 10/13/21 Emilie Jauregui PA-C [address] [place] [address] Specialty Colorer [employer] Pulmonary and Critical Care Medicine 10/13/21 Ryan May MD [address] [place] [address] Specialty Colorer [employer] Vascular Surgery 10/13/21 Geronimo Medina, DO [address] [id number] Manager Trust Cardiology 10/13/21 Tamika Almaguer [facility] Shellfish Processing Laborer 09/26/17 Orderly Relationship Specialty Start Date End Date Daija Morton MD [address] [place] [address] PCP - General Internal Medicine 03/21/17 13, Pharmacist [address] [place] [address] Pharmacist Pharmacy 06/17/21 Kaye Ortega MD [address] [place] [address] General Surgery 09/21/21 Ye Coello MD [address] [place], [place] [id number] General Surgery 10/13/21 Emilie Jauregui PA-C [address] [place] [address] [employer] Pulmonary and Critical Care Medicine 10/13/21 Ryan May MD [address] [place], [place] [id number] [employer] Vascular Surgery 10/13/21 Geronimo Medina, DO [address] [address] Manager [employer] 10/13/21 Tamika Almaguer [facility] [employer] Laborer 09/26/17 Orderly Relationship Specialty Start Date End Date Daija Morton MD [address] [place], [place] 714934 [phone] PCP - General Internal Medicine 03/21/17 13, Pharmacist [phone] [place] [address] Pharmacist Pharmacy 06/17/21 Kaye Ortega MD [address] [place] [address] General Surgery 09/21/21 Ye Coello MD [address] [place] [address] General Surgery 10/13/21 Emilie Jauregui PA-C [address] [place] [address] [employer] Pulmonary and Critical Care Medicine 10/13/21 Ryan May MD [address] [place], [place] 7423095 [employer] Vascular Surgery 10/13/21 Geronimo Medina, DO [address] [address] Manager [employer] 10/13/21 Tamika Almaguer [employer] Laborer 09/26/17 Orderly Relationship Specialty Start Date End Date Daija Morton MD [address] [place] [address] PCP - General Internal Medicine 03/21/17 13, Pharmacist [id number] [place] [address] Pharmacist Pharmacy 06/17/21 Kaye Ortega MD [address] [place] [phone] General Surgery 09/21/21 Ye Coello MD [address] [place], [place] [id number] General Surgery 10/13/21 Emilie Jauregui PA-C [address] [place] [address] [employer] Pulmonary and Critical Care Medicine 10/13/21 Ryan May MD [address] [place], [place] 5399195 [employer] Vascular Surgery 10/13/21 Geronimo Medina, [address] [address] Manager [employer] 10/13/21 Tamika Almaguer [employer]orer 09/26/17 Orderly Relationship Specialty Start Date End Date Daija Morton MD [address] [place] [address] PCP - General Internal Medicine 03/21/17 13, Pharmacist [phone] [place] [address] Pharmacist Pharmacy 06/17/21 Kaye Ortega MD [address] [place] [address] General Surgery 09/21/21 Ye Coello MD [address] [place], [place] 721945 General Surgery 10/13/21 Emilie Jauregui PA-C [address] [place] [address] [employer] Pulmonary and Critical Care Medicine 10/13/21 Ryan May MD [address] [place] [address] [employer] Vascular Surgery 10/13/21 Geronimo Medina DO [address] [address] Manager [employer] 10/13/21 Tamika Almaguer [facility] Shell[employer] Processing Laborer 09/26/17 Orderly Relationship Specialty Start Date End Date Daija Morton MD [address] [place] [address] PCP - General Internal Medicine 03/21/17 13, Pharmacist [phone] [place] [address] Pharmacist Pharmacy 06/17/21 Kaye Ortega MD [address] [place] [address] General Surgery 09/21/21 Ye Coello MD [address] [place], [place] [id number] General Surgery 10/13/21 Emilie Jauregui PA-C [address] [place] [address] [employer] Pulmonary and Critical Care Medicine 10/13/21 Ryan May MD [address] [place] [address] [employer] Vascular Surgery 10/13/21 Geronimo Medina DO [address] [address] Manager [employer] 10/13/21 Tamika Almaguer [employer]orer 09/26/17 Orderly Relationship Specialty Start Date End Date Daija Morton MD [address] [place] [address] PCP - General Internal Medicine 03/21/17 13, Pharmacist [phone] [place] [address] Pharmacist Pharmacy 06/17/21 Kaye Ortega MD [address] [place] [address] General Surgery 09/21/21 Ye Coello MD [address] [place] [address] General Surgery 10/13/21 Emilie Jauregui PA-C [address] [place] [address] [employer] Pulmonary and Critical Care Medicine 10/13/21 Ryan May MD [address] [place] [address] [employer] Vascular Surgery 10/13/21 Geronimo Medina DO [address] [address] Manager [employer] 10/13/21 Tamika HARRELL [employer] 09/26/17 Orderly Relationship Specialty Start Date End Date Daija Morton MD [address] [place] [address] PCP - General Internal Medicine 03/21/17 13, Pharmacist [phone] [place] [address] Pharmacist Pharmacy 06/17/21 Kaye Ortega MD [address] [place] [address] General Surgery 09/21/21 Ye Coello MD [address] [place], [place] [id number] General Surgery 10/13/21 Emilie Jauregui PAAshtyn [address] [place] [address] [employer] Pulmonary and Critical Care Medicine 10/13/21 Ryan May MD [address] [place] [address] [employer] Vascular Surgery 10/13/21 Geronimo Medina DO [address] [id number] Manager [employer] 10/13/21 Tamika Almaguer [facility] Shell[employer] Processing Laborer 09/26/17 Orderly Relationship Specialty Start Date End Date Daija Morton MD [address] [place], [place] 6239[address] [phone] PCP - General Internal Medicine 03/21/17 13, Pharmacist [phone] [place] [address] Pharmacist Pharmacy 06/17/21 Kaye Ortega MD [address] [place] [phone] General Surgery 09/21/21 Ye Coello MD [address] [place], [place] [id number] General Surgery 10/13/21 Emilie Jauregui PA-C [address] [place] [address] [employer] Pulmonary and Critical Care Medicine 10/13/21 Ryan May MD [address] [place], [place] 7519395 [employer] Vascular Surgery 10/13/21 Geronimo Medina, [address] [address] Manager [employer] 10/13/21 Tamika Minick Tripp [facility] Shell[employer] Processing Laborer 09/26/17 Orderly Relationship Specialty Start Date End Date Daija Morton MD [address] [place] [address] PCP - General Internal Medicine 03/21/17 13, Pharmacist [phone] [place] [address] Pharmacist Pharmacy 06/17/21 04/12/22 Kaye Ortega MD [address] [place] [address] General Surgery 09/21/21 Ye Coello MD [address] [place] [address] General Surgery 10/13/21 Emilie Jauregui PA-C [address] [place] [address] [employer] Pulmonary and Critical Care Medicine 10/13/21 Ryan May MD [address] [place] [address] [employer] Vascular Surgery 10/13/21 Geronimo Medina DO [address] [address] Manager [employer] 10/13/21 Tamika Almaguer [employer] Laborer 09/26/17 Team Status: Active Member Role Status [...] Provider Active Андрей Cooley Attending Provider Active Orderly Relationship Specialty Start Date End Date Daija Morton MD [address] [place] [address] PCP - General Internal Medicine 03/21/17 Kaye Ortega MD [address] [place] [address] General Surgery 09/21/21 Ye Coello MD [address] [place] [address] General Surgery 10/13/21 Emilie Jauregui PA-Edilma [address] [place], [place] 274461 [employer] Pulmonary and Critical Care Medicine 10/13/21 Ryan May MD [address] [place] [address] [employer] Vascular Surgery 10/13/21 Geronimo Medina DO [address] [address] Manager [employer] 10/13/21 Tamika Almaguer [employer] Laborer 09/26/17 Orderly Relationship Specialty Start Date End Date Daija Morton MD [address] [place] [address] PCP - General Internal Medicine 03/21/17 Kaye Ortega MD [address] [place] [address] General Surgery 09/21/21 Ye Coello MD [address] [place], [place] 971001 [phone] General Surgery 10/13/21 Emilie Jauregui PA-C [address] [place] [address] [employer] Pulmonary and Critical Care Medicine 10/13/21 Ryan May MD [address] [place], [place] 30533[address] [employer]ty [employer] Vascular Surgery 10/13/21 Geronimo Medina, [address] [id number] Manager [employer] 10/13/21 Tamika Almaguer [facility] Shell[employer] Processing Laborer 09/26/17 Orderly Relationship Specialty Start Date End Date Daija Morton MD [address] [place] [address] PCP - General Internal Medicine 03/21/17 Kaye Ortega MD [address] [place] [address] General Surgery 09/21/21 Ye Coello MD [address] [place], [place] [id number] General Surgery 10/13/21 Emilie Jauregui PA-C [address] [place] [address] [employer] Pulmonary and Critical Care Medicine 10/13/21 Ryan May MD [address] [place], [place] 8332595 [employer] Vascular Surgery 10/13/21 Geronimo Medina, DO [address] [address] Manager [employer] 10/13/21 Tamika HARRELL [employer] Laborer 09/26/17 Orderly Relationship Specialty Start Date End Date Daija Morton MD [address] [place] [address] PCP - General Internal Medicine 03/21/17 Kaye Ortega MD [address] [place] [address] General Surgery 09/21/21 Ye Coello MD [address] [place], [place] 389915 General Surgery 10/13/21 Emilie Jauregui PA-C [address] [place] [address] [employer] Pulmonary and Critical Care Medicine 10/13/21 Ryan May MD [address] [place], [place] 8109295 Specialty [employer] Vascular Surgery 10/13/21 Geronimo Medina DO [address] [address] Manager [employer] 10/13/21 Tamika HARRELL [employer] 09/26/17 Orderly Relationship Specialty Start Date End Date Daija Morton MD [address] [place] [address] PCP - General Internal Medicine 03/21/17 Kaye Ortega MD [address] [place] [address] General Surgery 09/21/21 Ye Coello MD [address] [place] [address] General Surgery 10/13/21 Emilie Jauregui PA-C [address] [place] [address] [employer]ty [employer] Pulmonary and Critical Care Medicine 10/13/21 Ryan May MD [address] [place] 185[address]95 Specialty [employer] Vascular Surgery 10/13/21 Geronimo Medina, [address] [id number] Manager [employer] 10/13/21 Tamika Almaguer [facility] Shell[employer] Processing Laborer 09/26/17 Orderly Relationship Specialty Start Date End Date Daija Morton MD [address] [place] [address] PCP - General Internal Medicine 03/21/17 Kaye Ortega MD [address] [place] [address] General Surgery 09/21/21 Ye Coello MD [address] [place], [place] 851029 [phone] General Surgery 10/13/21 Emilie Jauregui PA-C [address] [place] [address] [employer]ty [employer] Pulmonary and Critical Care Medicine 10/13/21 Ryan May MD [address] [place], [place] 4469295 Specialty [employer] Vascular Surgery 10/13/21 Geronimo Medina DO [address] [address] Manager [employer] 10/13/21 Tamika Almaguer [employer] Laborer 09/26/17 Orderly Relationship Specialty Start Date End Date Daija Morton MD [address] [place] [address] PCP - General Internal Medicine 03/21/17 Kaye Ortega MD [address] [place] [address] General Surgery 09/21/21 Ye Coello MD [address] [place], [place] 130[address] General Surgery 10/13/21 Emilie Jauregui PA-C [address] [facility] [place] [address] Specialty [employer] Pulmonary and Critical Care Medicine 10/13/21 Ryan May MD [address] [place] [address] Specialty [employer] Vascular Surgery 10/13/21 Geronimo Medina, DO [address] [address] Manager [employer] 10/13/21 Tamika [employer] Laborer 09/26/17 Orderly Relationship Specialty Start Date End Date Daija Morton MD [address] [place] [address] PCP - General Internal Medicine 03/21/17 Kaye Ortega MD [address] [place] [address] General Surgery 09/21/21 Ye Coello MD [address] [place], [place] [id number] General Surgery 10/13/21 Emilie Jauregui PA-C [address] [place], [place] 407581 [employer]ty [employer] Pulmonary and Critical Care Medicine 10/13/21 Ryan May [facility] [address] [facility] [place] [address] Specialty [employer] Vascular Surgery 10/13/21 Geronimo Medina DO [address] [address] Manager [employer] 10/13/21 Tamikadestiny Almaguer [facility] Shell[employer] Processing Laborer 09/26/17 Team Status: Inactive Member Role Status Dates Dr. Daija Morton MD Primary Care Provider Active Андрей RAIN Attending Provider Active Team Status: Inactive Member Role Status Dates Dr. Daija Morton MD Primary Care Provider Active Dr. Jaden Jauregui MD Emergency Provider Active Orderly Relationship Specialty Start Date End Date Daija Morton MD [address] [place], [place] 767811 PCP - General Internal Medicine 03/21/17 Kaye Ortega MD [address] [place] [address] General Surgery 09/21/21 Ye Coello MD [address] [place], [place] 017015 General Surgery 10/13/21 Emilie Jauregui PA-C [address] [place] [address] [employer]ty [employer] Pulmonary and Critical Care Medicine 10/13/21 Ryan May MD [address] [place] [address] Specialty [employer] Vascular Surgery 10/13/21 Geronimo Medina DO [address] [address] Manager [employer] 10/13/21 Tamika HARRELL [employer] 09/26/17 Orderly Relationship Specialty Start Date End Date Daija Morton MD [address] [place], [place] 435171 PCP - General Internal Medicine 03/21/17 Kaye Ortega MD [address] [place] [address] General Surgery 09/21/21 Ye Coello MD [address] [place] [address] General Surgery 10/13/21 Emilie Jauregui PA-C [address] [place] [address] [employer]ty [employer] Pulmonary and Critical Care Medicine 10/13/21 Ryan May MD [address] [place] [address] Specialty [employer] Vascular Surgery 10/13/21 Geronimo Medina DO [address] [address] Manager [employer] 10/13/21 Tamika HARRELL [employer] 09/26/17 Team Status: Inactive Member Role Status Dates Dr. Daija Morton MD Primary Care Provider Active Dr. Jaden Jauregui MD Attending Provider, Emergency Provider Active Team Status: Inactive Member Role Status Dates Dr. Daija Morton MD Primary Care Provider Active Dr. Huber Alvarado MD Emergency Provider Active Orderly Relationship Specialty Start Date End Date Daija Morton MD [address] [place] [address] PCP - General Internal Medicine 03/21/17 Kaye Ortega MD [address] [place] [address] General Surgery 09/21/21 Ye Coello MD [address] [place] [address] General Surgery 10/13/21 Emilie Jauregui PA-C [address] [place] [address] [employer]ty [employer] Pulmonary and Critical Care Medicine 10/13/21 Ryan May MD [address] [place] [address] Specialty [employer] Vascular Surgery 10/13/21 Geronimo Medina DO [address] [address] Manager [employer] 10/13/21 Tamika Almaguer [facility] Shellfish Processing Laborer 09/26/17 Team Status: Inactive Member Role Status Dates Dr. Daija Morton MD Primary Care Provider Active Dr. Huber Alvarado MD Attending Provider, Emergency Provider Active Orderly Relationship Specialty Start Date End Date Daija Morton MD [address] [place] [address] PCP - General Internal Medicine 03/21/17 Kaye Ortega MD [address] [place] [address] General Surgery 09/21/21 Ye Coello MD [address] [place] [address] General Surgery 10/13/21 Emilie Jauregui PANeshaC [address] [place], [place] 526311 [employer]ty [employer] Pulmonary and Critical Care Medicine 10/13/21 Ryan May MD [address] [place] [address] Specialty [employer] Vascular Surgery 10/13/21 Geronimo Medina DO [address] [address] Manager [employer] 10/13/21 Tamika Almaguer [facility] [employer] Processing Laborer 09/26/17 Team Status: Active Member Role Status [...] MD Admit Provider, Attending Pro vider Active Orderly Relationship Specialty Start Date End Date Daija Morton MD [address] [place] [address] PCP - General Internal Medicine 03/21/17 Kaye Ortega MD [address] [place] [address] General Surgery 09/21/21 Ye Coello MD [address] [place] [address] General Surgery 10/13/21 Emilie Jauregui PA-C [address] [place] [address] [employer] Pulmonary and Critical Care Medicine 10/13/21 Ryan May MD [address] [facility] [place] [address] Specialty [employer] Vascular Surgery 10/13/21 Geronimo Medina DO [address] [address] Manager [employer] 10/13/21 Tamikadestiny Almaguer [facility] Shell[employer] Processing Laborer 09/26/17 Team Status: Active Member Role Status [...] Dr. Elton Moore MD Other Provider Active Orderly Relationship Specialty Start Date End Date Daija Morton MD [address] [place] [address] PCP - General Internal Medicine 03/21/17 Kaye Ortega MD [address] [place] [address] General Surgery 09/21/21 Ye Coello MD [address] [place], [place] 009225 General Surgery 10/13/21 Emilie Jauregui PA-C [address] [place] [address] [employer] Pulmonary and Critical Care Medicine 10/13/21 Ryan May MD [address] [place] [address] Specialty [employer] Vascular Surgery 10/13/21 Geronimo Medina DO [address] [address] Manager [employer] 10/13/21 Tamika HARRELL [employer] 09/26/17 Orderly Relationship Specialty Start Date End Date Daija Morton MD [address] [place] [address] PCP - General Internal Medicine 03/21/17 Kaye Ortega MD [address] [place] [address] General Surgery 09/21/21 Ye Coello MD [address] [place] [address] General Surgery 10/13/21 Emilie Jauregui PA-C [address] [place] [address] Specialty [employer] Pulmonary and Critical Care Medicine 10/13/21 Ryan May MD [address] [place] [address] Specialty [employer] Vascular Surgery 10/13/21 Geronimo Medina DO [address] [place] [address] Manager [employer] 10/13/21 Tamika HARRELL [employer] 09/26/17 Orderly Relationship Specialty Start Date End Date Daija Morton MD [address] [place] [address] PCP - General Internal Medicine 03/21/17 Kaye Ortega MD [address] [place] [address] General Surgery 09/21/21 Ye Coello MD [address] [place] [address] General Surgery 10/13/21 Emilie Jauregui PA-C [address] [place] [address] [employer]ty [employer] Pulmonary and Critical Care Medicine 10/13/21 Ryan May MD [address] [place] [address] Specialty [employer] Vascular Surgery 10/13/21 Geronimo Medina DO [address] [place] [address] Manager [employer] 10/13/21 Tamika Almaguer [facility] [employer] Processing Laborer 09/26/17 Team Status: Inactive Member Role Status [...] Provi ashley, Attending Provider, Referring Provider Active Orderly Relationship Specialty Start Date End Date Daija Morton MD [address] [place] [address] PCP - General Internal Medicine 03/21/17 Kaye Ortega MD [address] [place] [address] General Surgery 09/21/21 Ye Coello MD [address] [place] [address] General Surgery 10/13/21 Emilie Jauregui, PANeshaC [address] [place] [address] [employer]ty [employer] Pulmonary and Critical Care Medicine 10/13/21 Ryan May MD [address] [place] [address] Specialty [employer] Vascular Surgery 10/13/21 Geronimo Medina DO [address] [place] [address] Manager [employer] 10/13/21 Tamika Almaguer [facility] [employer] Processing Laborer 09/26/17 Team Status: Active Member Role Status [...] Dr. Ryan Guerin DO Attending Provider Active Orderly Relationship Specialty Start Date End Date Daija Morton MD [address] [place], [place] 086161 PCP - General Internal Medicine 03/21/17 Kaye Ortega MD [address] [place] [address] General Surgery 09/21/21 Ye Coello MD [address] [place], [place] 911135 General Surgery 10/13/21 Emilie Jauregui PA-C [address] [place] [address] [employer]ty [employer] Pulmonary and Critical Care Medicine 10/13/21 Ryan May MD [address] [place] [address] Specialty [employer] Vascular Surgery 10/13/21 Geronimo Medina DO [address] [place] [address] Manager [employer] 10/13/21 Tamika Almaguer [facility] [employer] Laborer 09/26/17 Orderly Relationship Specialty Start Date End Date Daija Morton MD [address] [place] [address] PCP - General Internal Medicine 03/21/17 Kaye Ortega MD [address] [place] [address] General Surgery 09/21/21 Ye Coello MD [address] [place] [address] General Surgery 10/13/21 Emilie Jauregui PA-C [address] [place], [place] 529041 [employer] Pulmonary and Critical Care Medicine 10/13/21 Ryan May MD [address] [place] [address] Specialty [employer] Vascular Surgery 10/13/21 Geronimo Medina DO [address] [place] [address] Manager [employer] 10/13/21 Tamika HARRELL [employer] 09/26/17 Orderly Relationship Specialty Start Date End Date Daija Morton MD [address] [place] [address] PCP - General Internal Medicine 03/21/17 Kaye Ortega MD [address] [place] [address] General Surgery 09/21/21 Ye Coello MD [address] [place], [place] 8719[address] General Surgery 10/13/21 Emilie Jauregui PA-C [address] [facility] [place], [place] [address] [employer] Pulmonary and Critical Care Medicine 10/13/21 Ryan May MD [address] [place] [address] [employer]ty [employer] Vascular Surgery 10/13/21 Geronimo Medina DO [address] [place] [address] Manager [employer] 10/13/21 Tamika Almaguer [facility] [employer] Laborer 09/26/17 Orderly Relationship Specialty Start Date End Date Daija Morton MD [address] [place], [place] 951661 PCP - General Internal Medicine 03/21/17 Kaye Ortega MD [address] [place] [address] General Surgery 09/21/21 Ye Coello MD [address] [place] [address] General Surgery 10/13/21 Emilie Jauregui PA-C [address] [facility] [place] [address] [employer] Pulmonary and Critical Care Medicine 10/13/21 Ryan May MD [address] [place] [address] [employer]ty [employer] Vascular Surgery 10/13/21 Geronimo Medina DO [address] [place] [address] Manager [employer] 10/13/21 Tamika HARRELL [employer] 09/26/17 Orderly Relationship Specialty Start Date End Date Daija Morton MD [address] [place] [address] PCP - General Internal Medicine 03/21/17 Kaye Ortega MD [address] [place] [address] General Surgery 09/21/21 Ye Coello MD [address] [place] [address] General Surgery 10/13/21 Emilie Jauregui PA-C [address] [place] [address] [employer] Pulmonary and Critical Care Medicine 10/13/21 Ryan May MD [address] [place] [address] Specialty [employer] Vascular Surgery 10/13/21 Geronimo Medina DO [address] [place] [address] Manager [employer] 10/13/21 Tamika HARRELL [employer] 09/26/17 Orderly Relationship Specialty Start Date End Date Daija Morton MD [address] [place] [address] PCP - General Internal Medicine 03/21/17 Kaye Ortega MD [address] [place] [address] General Surgery 09/21/21 Ye Coello MD [address] [place] [address] General Surgery 10/13/21 Emilie Jauregui PA-C [address] [place] [address] [employer]ty [employer] Pulmonary and Critical Care Medicine 10/13/21 Ryan May MD [address] [place] [address] Specialty [employer] Vascular Surgery 10/13/21 Geronimo Medina DO [address] [place] [address] Manager [employer] 10/13/21 Tamika Almaguer [facility] [employer] Processing Laborer 09/26/17 Orderly Relationship Specialty Start Date End Date Daija Morton MD [address] [place] [address] PCP - General Internal Medicine 03/21/17 Kaye Ortega MD [address] [place] [address] General Surgery 09/21/21 Ye Coello MD [address] [place] [address] General Surgery 10/13/21 Emilie Jauregui PA-C [address] [place], [place] [address] [employer] Pulmonary and Critical Care Medicine 10/13/21 Ryan May MD [address] [place] [address] Specialty [employer] Vascular Surgery 10/13/21 Geronimo Medina DO [address] [place] [address] Manager [employer] 10/13/21 Tamika Almaguer [facility] [employer] Laborer 09/26/17 Orderly Relationship Specialty Start Date End Date Daija Morton MD [address] [place] [address] PCP - General Internal Medicine 03/21/17 Kaye Ortega MD [address] [facility] [place] [address] General Surgery 09/21/21 Ye Coello MD [address] [place] [address] General Surgery 10/13/21 Emilie Jauregui PA-C [address] [facility] [place] [address] [employer] Pulmonary and Critical Care Medicine 10/13/21 Ryan May MD [address] [place] [address] [employer]ty [employer] Vascular Surgery 10/13/21 Geronimo Medina DO [address] [place] [address] Manager [employer] 10/13/21 Tamika HARRELL [employer] 09/26/17 Orderly Relationship Specialty Start Date End Date Daija Morton MD [address] [place], [place] [address]041 PCP - General Internal Medicine 03/21/17 Kaye Ortega MD [address] [place] [phone] General Surgery 09/21/21 Ye Coello MD [address] [place], [place] [address] General Surgery 10/13/21 Emilie Jauregui PANeshaC [address] [place] [address] Specialty Colorer Hides [employer] Skins Pulmonary and Critical Care Medicine 10/13/21 Ryan May MD [address] [place] [address] Specialty Colorer Hides [employer] Skins Vascular Surgery 10/13/21 Geronimo Medina DO [address] [place] [address] Manager Trust Cardiology 10/13/21 Tamika HARRELL Shellfish Processing Laborer 09/26/17 Orderly Relationship Specialty Start Date End Date Daija Morton MD [address] [place] [address] PCP - General Internal Medicine 03/21/17 Beatriz Correa FIELD DIRECTOR [address] [facility] [place] [address] Referring 09/28/20 10/12/21 Daija Morton MD [address] [place] [address] Home Care Provider Internal Medicine 09/28/20 10/12/21 Fco Franklin, SEYMOUR [address] [place] [address] Restaurant Associate 10/08/20 12/21/20 Tamika Almaguer [facility] Shellfish Processing Laborer 09/26/17 Orderly Relationship Specialty Start Date End Date Daija Morton MD [address] [place], [place] [address]281 PCP - General Internal Medicine 03/21/17 Kaye Ortega MD [address] [place] [phone] General Surgery 09/21/21 Ye Coello MD [address] [place] [address] General Surgery 10/13/21 Emilie Jauregui PA-C [address] [place] [address] Specialty Colorer Hides [employer] Skins Pulmonary and Critical Care Medicine 10/13/21 Ryan May MD [address] [place] [address] Specialty Colorer Hides [employer] Skins Vascular Surgery 10/13/21 Geronimo Medina DO [address] [place] [address] Manager Trust Cardiology 10/13/21 Tamika HARRELL Shellfish Processing Laborer 09/26/17 Orderly Relationship Specialty Start Date End Date Daija Morton MD [address] [place], [place] 7[address] PCP - General Internal Medicine 03/21/17 Kaye Ortega MD [address] [place] [phone] General Surgery 09/21/21 Ye Coello MD [address] [place] [address] General Surgery 10/13/21 Emiile Jauregui PA-C [address] [place] [address] Specialty Colorer Hides [employer] Skins Pulmonary and Critical Care Medicine 10/13/21 Ryan May MD [address] [place] [address] Specialty Colorer Hides [employer] Skins Vascular Surgery 10/13/21 Geronimo Medina DO [address] [place] [address] Manager Trust Cardiology 10/13/21 Tamika Almaguer [facility] Shell[employer] Processing Laborer 09/26/17 Orderly Relationship Specialty Start Date End Date Daija Morton MD [address] [place], [place] [address]9511 PCP - General Internal Medicine 03/21/17 Kaye Ortega MD [address] [place] [address] General Surgery 09/21/21 Ye Coello MD [address] [place], [place] 831205 General Surgery 10/13/21 Emilie Jauregui PA-C [address] [facility] [place], [place] [address] [phone] Specialty Colorer Hides [employer] Skins Pulmonary and Critical Care Medicine 10/13/21 Ryan May MD [address] [place] [address] Specialty Colorer Hides [employer] Skins Vascular Surgery 10/13/21 Geronimo Medina DO [address] [place] [address] Manager Trust Cardiology 10/13/21 Tamika Almaguer [facility] Shellfish Processing Laborer 09/26/17 Orderly Relationship Specialty Start Date End Date Daija Morton MD [address] [place], [place] [address]2351 PCP - General Internal Medicine 03/21/17 Kaye Ortega MD [address] [facility] [place] [place] [address] General Surgery 09/21/21 Ye Coello MD [address] [place] [address] General Surgery 10/13/21 Emilie Jauregui PA-C [address] [facility] [place], [place] [address] [phone] Specialty Colorer Hides [employer] Skins Pulmonary and Critical Care Medicine 10/13/21 Ryan May MD [address] [place] [address] Specialty Colorer Hides [employer] Skins Vascular Surgery 10/13/21 Geronimo Medina DO [address] [place] [address] Manager Trust Cardiology 10/13/21 Tamika Canales [facility] Shellfish Processing Laborer 09/26/17 Team Status: Active Member Role Status [...] November 05, 2024 End: November 05, 2024 Orderly Relationship Specialty Start Date End Date Daija Morton MD [address] [place], [place] [address]281 PCP - General Internal Medicine 03/21/17 Kaye Ortega MD [address] [facility] [place] [phone] General Surgery 09/21/21 Ye Coello MD [address] [place] [address] General Surgery 10/13/21 Emilie Jauregui, PA-C [address] [place], [place] 7509[address] Specialty Colorer Hides [employer] Skins Pulmonary and Critical Care Medicine 10/13/21 Ryan May MD [address] [place], [place] [id number] Specialty Colorer Hides [employer] Skins Vascular Surgery 10/13/21 Geronimo Medina DO [address] [place] [address] Manager Trust Cardiology 10/13/21 Anjel Braga APRN.FIELD DIRECTOR [address] [place], [place] [address]41 Leather Parts Matcher Internal Medicine 05/26/24 Tamika Canales [facility] Shellfish Processing Laborer 09/26/17 Orderly Relationship Specialty Start Date End Date Daija Morton MD [address] [place], [place] [address]71 PCP - General Internal Medicine 03/21/17 Kaye Ortega MD [address] [place] [phone] General Surgery 09/21/21 Ye Coello MD [address] [place], [place] 474525 General Surgery 10/13/21 Emilie Jauregui PA-C [address] [place], [place] [address] Specialty Colorer Hides [employer] Skins Pulmonary and Critical Care Medicine 10/13/21 Ryan May MD [address] [place], [place] 42957[address] Specialty Colorer Hides [employer] Skins Vascular Surgery 10/13/21 Geronimo Medina DO [address] [place] [address] Manager Trust Cardiology 10/13/21 Anjel Braga APRN.FIELD DIRECTOR [address] [place], [place] [address] Leather Parts Matcher Internal Medicine 05/26/24 Tamika Almaguer [facility] Shellfish Processing Laborer 09/26/17 Orderly Relationship Specialty Start Date End Date Daija Morton MD [address] [place], [place] [address]221 PCP - General Internal Medicine 03/21/17 Kaye Ortega MD [address] [place] [address]05[address] General Surgery 09/21/21 Ye Coello MD [address] [place], [place] [address] General Surgery 10/13/21 Emilie Jauregui, PA-C [address] [place], [place] [address] Specialty Colorer Hides [employer] Skins Pulmonary and Critical Care Medicine 10/13/21 Ryan May MD [address] [place] [address] Specialty Colorer Hides [employer] Skins Vascular Surgery 10/13/21 Geronimo Medina DO [address] [place] [address] Manager Trust Cardiology 10/13/21 Anjel Braga APRN.FIELD DIRECTOR [address] [place] [address] Leather Parts Matcher Internal Medicine 05/26/24 Tamika Almaguer [employer] Shellfish Processing Laborer 09/26/17 Orderly Relationship Specialty Start Date End Date Daija Morton MD [address] [place], [place] 398131 PCP - General Internal Medicine 03/21/17 Kaye Ortega MD [address] [place] [address] General Surgery 09/21/21 Ye Coello MD [address] [place] [address] General Surgery 10/13/21 Emilie Jauregui PA-C [address] [place], [place] 8[address] Specialty Colorer Hides And Skins Pulmonary and Critical Care Medicine 10/13/21 Ryan May MD [address] [place] [address] Specialty Colorer Hides And Skins Vascular Surgery 10/13/21 Geronimo Medina DO [address] [place] [address] Manager Trust Cardiology 10/13/21 Anjel Braga APRN.FIELD DIRECTOR [address] [place] [address] Leather Parts Matcher Internal Medicine 05/26/24 Tamika Almaguer [employer] Shellfish Processing Laborer 09/26/17 Orderly Relationship Specialty Start Date End Date Daija Morton MD [address] [place] [address] PCP - General Internal Medicine 03/21/17 Kaye Ortega MD [address] [place] [address] General Surgery 09/21/21 Ye Coello MD [address] [place] [address] General Surgery 10/13/21 Emilie Jauregui PA-C [address] [place], [place] [address] Specialty Colorer Hides [employer] Skins Pulmonary and Critical Care Medicine 10/13/21 Ryan May MD [address] [place] [address] Specialty Colorer Hides [employer] Skins Vascular Surgery 10/13/21 Geronimo Medina DO [address] [place] [address] Manager Trust Cardiology 10/13/21 Anjel Braga APRN.FIELD DIRECTOR [address] [place] [address] Leather Parts Matcher Internal Medicine 05/26/24 Tamika Almaguer [facility] Shellfish Processing Laborer 09/26/17 Orderly Relationship Specialty Start Date End Date Daija Morton MD [address] [place] [address] PCP - General Internal Medicine 03/21/17 Kaye Ortega MD [address] [place] [address] General Surgery 09/21/21 Ye Coello MD [address] [place] [address] General Surgery 10/13/21 Emilie Jauregui PA-C [address] [place], [place] [id number] Specialty Colorer Hides [employer] Skins Pulmonary and Critical Care Medicine 10/13/21 Ryan May MD [address] [facility] [place] [address] Specialty Colorer Hides And Skins Vascular Surgery 10/13/21 Geronimo Medina DO [address] [place] [address] Manager Trust Cardiology 10/13/21 Anjel Braga APRN.FIELD DIRECTOR [address] [place], [place] [id number] Leather Parts Matcher Internal Medicine 05/26/24 Tamika Almaguer [facility] Shellfish Processing Laborer 09/26/17 Team Status: Active Member Role/Relationship Status [...] Provider Active Start : December 16, 2024 Orderly Relationship Specialty Start Date End Date Daija Morton MD [address] [place], [place] 269671 PCP - General Internal Medicine 03/21/17 Kaye Ortega MD [address] [place] [address] General Surgery 09/21/21 Ye Coello MD [address] [place], [place] [address] General Surgery 10/13/21 Emilie Jauregui PA-C [address] [place], [place] 367291 Specialty Colorer Hides [employer] Skins Pulmonary and Critical Care Medicine 10/13/21 Ryan May MD [address] [place] [address] Specialty Colorer Hides And Skins Vascular Surgery 10/13/21 Geronimo Medina DO [address] [place] [address] Manager Trust Cardiology 10/13/21 Anjel Braga APRN.FIELD DIRECTOR [address] [place], [place] [address] Leather Parts Matcher Internal Medicine 05/26/24 Tamika Almaguer [employer] Shellfish Processing Laborer 09/26/17 Orderly Relationship Specialty Start Date End Date Daija Morton MD [address] [place] [address] PCP - General Internal Medicine 03/21/17 Kaye Ortega MD [address] [place] [address] General Surgery 09/21/21 Ye Coello MD [address] [place] [address] General Surgery 10/13/21 Emilie Jauregui, PANeshaC [address] [place], [place] [address] Specialty Colorer Hides [employer] Skins Pulmonary and Critical Care Medicine 10/13/21 Ryan May MD [address] [place] [address] Specialty Colorer Hides [employer] Skins Vascular Surgery 10/13/21 Geronimo Medina DO [address] [place] [address] Manager Trust Cardiology 10/13/21 Anjel Braga APRN.FIELD DIRECTOR [address] [place] [address] [facility] Internal Medicine 05/26/24 Tamika Ally HARRELL Shellfish Processing Laborer 09/26/17 Team Status: Active Member Role/Relationship Status Dates Dr. Daija Morton MD Primary Care Provider Active Start: December 17, 2024 Dr. Seth Pritchard DO Emergency Provider Active Start: December 17, 2024 Dr. Roman Patel DO Admit Provider Active Start: December 17, 2024 Dr. Roman Patel DO Attending Provider Active Start: December 17, 2024 Orderly Relationship Specialty Start Date End Date Daija Morton MD [address] [place] [address] PCP - General Internal Medicine 03/21/17 Kaye Ortega MD [address] [place] [address] General Surgery 09/21/21 Ye Coello MD [address] [place], [place] [address]365 General Surgery 10/13/21 Emilie Jauregui PANeshaC [address] [place], [place] [address] Specialty Colorer Hides [employer] Skins Pulmonary and Critical Care Medicine 10/13/21 Ryan May MD [address] [place] [address] Specialty Colorer Hides [employer] Skins Vascular Surgery 10/13/21 Geronimo Medina DO [address] [place] [address] Manager [employer] Card[employer] 10/13/21 Anjel Braga APRN.FIELD DIRECTOR [address] [place], [place] [address] Leather Parts Matcher Internal Medicine 05/26/24 Tamika HARRELL [employer] Processing Laborer 09/26/17 Team Status: Inactive Member Role/Relationship Status [...] Status: Active Member Role/Relationship Status Dates Dr. Diaja Mroton MD Primary Care Provider Active Start: December 17, 2024 Dr. Seth Pritchard DO Emergency Provider Active Start: December 17, 2024 Dr. Roman Patel DO Admit Provider Active Start: December 17, 2024 Dr. Roman Patel DO Attending Provider Active Start: December 17, 2024 Dr. Roman Patel , Other Provider Active Start: December 17, 2024 [...] MS Other Provider Active Start: J 2024 End: December 26, 2024 Jo Hughes [...] Start: December 19, 2024 Dr. Seth Pritchard , DO Emergency Provider Active Start: December 19, 2024 Dr. Roman Patel , DO Admit Provider Active Start: December 19, 2024 Dr. Roman Patel , Other Provider Active Start: December 19, 2024 [...] S tart: December 19, 2024 Dr. Lisha Taalmantes DO Other Provider Active Start : December [...] MS Other Provider Active Start: 2024 Jo Hguhes MD Other Provider Active Start: December 21, [...] December 24, 2024 Dr. Lisha Talamantes , DO Other Provider Active Start : December 24, 2024 Team Status: Active Member Role/Relationship Status Dates Dr. Daija Morton MD Primary Care Provider Active Start: December 24, 2024 Dr. Seth Pritchard , DO Emergency Provider Active Start: December 24, 2024 Dr. Roman Patel , DO Admit Provider Active Start: December 24, 2024 Dr. Roman Patel , DO Other Provider Active Start: December 24, [...] Start : December 24, 2024 Dr. Paulino Hendersno DO Attending Provider Active Start: December 24, 2024 Team Status: Active Member Role/Relationship Status Dates Dr. Daija Morton MD Primary Care Provider Active Start: December 25, 2024 Dr. Seth Pritchard , DO Emergency Provider Active Start: December 25, [...] Provider Active Start : December 26, 2024 Orderly Relationship Specialty Start Date End Date Daija Morton MD [address] [place], [place] [address] PCP - General Internal Medicine 03/21/17 Kaye Ortega MD [address] [place] [address] General Surgery 09/21/21 Ye Coello MD [address] [place] [address] General Surgery 10/13/21 Emilie Jauregui, PA-C [address] [place] [address] Specialty Colorer H[employer] Skins Pulmonary and Critical Care Medicine 10/13/21 Ryan May MD [address] [place] [address] Specialty Colorer H[employer] Skins Vascular Surgery 10/13/21 Geronimo Medina DO [address] [place] [address] Manager [employer] Card[employer] 10/13/21 Anjel Braga APRN.FIELD DIRECTOR [address] [place], [place] [address] Leather Parts Matcher Internal Medicine 05/26/24 Tamika Almaguer [facility] Shellfish Processing Laborer 09/26/17 Team Status: Active Member Role/Relationship Status [...] December 15, 2024 Dr. Charis Walker , DO Emergency [...] Start: December 18, 2024 Dr. Roman Patel , Other Provider Active Start: December 18, 2024 [...] Sta rt: December 21, 2024 Dr. Kami Boltno MD Other Provider Active Start : December [...] Provider Active Start : December 21, 2024 Chrystla Collier MD Other Provider Active Start : [...] tart: December 22, 2024 Dr. Lisha Talamantes , DO Other Provider Active Start : December 22, 2024 Team Status: Active Member Role/Relationship Status Dates Dr. Daija Morton MD Primary Care Provider Active Start: December 23, 2024 Dr. Seth Pritchard , DO Emergency Provider Active Start: December 23, 2024 Dr. Roman Patel , DO Admit Provider Active Start: December 23, 2024 Dr. Roman Patel , DO Other Provider Active Start: December 23, [...] JOSETTE YANG MD Other Provider Active Start: chance 2024 Angelo Wiley MD Other Provider [...] Provider Active Sta rt: December 24, 2024 Tamiak Xiao MD Other Provider Active Start : [...] Provider Active S tart: January 08, 2025 Orderly Relationship Specialty Start Date End Date Daija Morton MD [address] [place] [address] PCP - General Internal Medicine 03/21/17 Kaye Ortega MD [address] [place] [address] General Surgery 09/21/21 Ye Coello MD [address] [place] [address] General Surgery 10/13/21 Emilie Jauregui, PA-C [address] [place], [place] [address] Specialty Colorer Hides [employer]kins Pulmonary and Critical Care Medicine 10/13/21 Ryan May MD [address] [place] [address] Specialty Colorer H[employer] S[employer] Vascular Surgery 10/13/21 Geronimo Medina DO [address] [place] [address] Manager [employer] 10/13/21 Anjel Braga APRN.FIELD DIRECTOR [address] [place], [place] [address] Leather Parts Matcher Internal Medicine 05/26/24 Tamika Almaguer [facility] Shellfish Processing Laborer 09/26/17 Team Status: Active Member Role/Relationship Status [...] December 23, 2024 Dr. Roman Patel , Other Provider Active Start: December 23, 2024 [...] Provider Active Start: December 24, 2024 Dr. Romna Patel DO Other Provider [...] 2025 End: January 09, 2025 Josefa Doss NP, SHAKER PLATE OPERATOR-C Attending Provider Active Start: January 09, 2025 [...] 2025 End: January 09, 2025 Josefa Doss SHAKER PLATE OPERATOR, SHAKER PLATE OPERATOR-C Attending Provider Active Start: January 09, 2025 [...] 2025 End: January 23, 2025 Hannah Busch SHAKER PLATE OPERATOR-C Attending Provider Active S tart: January 23, [...] 2024 End: December 27, 2024 Josefa Doss NP SHAKER PLATE OPERATOR-C Attending Provider Active Start: December 27, 2024 [...] Provider Active Start: December 31, 2024 Lorraine RANI MD Referring Provider Active Start: December 31, [...] Active Start: January 07, 2025 Dr. Frankie Galinod MD Admit Provider Active Star t: January [...] 2025 End: January 09, 2025 Josefa Doss SHAKER PLATE OPERATOR, SHAKER PLATE OPERATOR-C Attending Provider Active Start: January 09, 2025 [...] End: December 16, 2024 Dr. Charis Walker , Emergency Provider Active S tart: December 13, [...] Active Start : December 18, 2024 Dr. Mackenize Guzmán , Other Provider Active St art: [...] 2024 End: December 26, 2024 Dr. Shilpa Contrears MD Attending Provider Active Start: December 18, [...] Active Start : December 23, 2024 Luan Mcgarw MS Other Provider Active Start: J chance [...] Provider Active Start: December 24, 2024 Dr. Ryna Vargas MD Other Provider Active Sta rt: [...] : December 24, 2024 Dr. Paulino Henderson , Attending Provider Active Start: December 24, 2024 [...] 2024 End: December 27, 2024 Josefa Doss SHAKER PLATE OPERATOR, SHAKER PLATE OPERATOR-C Attending Provider Active Start: December 27, 2024 End: December 27, 2024 Team Status: Active Member Role/Relationship Status Dates Dr. Lorraine Mena MD Primary Care Provider Active Start: January 06, 2025 Dr. Paulino Henderson DO Attending Provider Active Start: January 06, 2025 Dr. Frankie Galindo MD Referring Provider Active Start: January 06, [...] 2025 End: February 04, 2025 Josefa Doss SHAKER PLATE OPERATOR, SHAKER PLATE OPERATOR-C Attending Provider Active Start: February 04, 2025 [...] alternate section No data available for this section FOR RECORDS PERTAINING TO PATIENTS WHO [...] BE BASED ON THE PRIMARY CLINICAL RECORDS. [facility] [employer] [facility]. provides no warranty or guarantee of the accuracy or completeness of information in this document.
[2025-05-03 18:52] LABS: Anion Gap 12 (5-15); BUN 36 mg/dL (4-19); BUN/Creat Ratio 25.5 RATIO (10-20); Calcium,Total 9.9 mg/dL (7.6-11.0); Carbon Dioxide 27.3 mmol/L (21.0-32.0); Chloride 102 mmol/L (98-108); Estimated Creatinine Clearance 38.97 ml/min (50-250); Glucose 126 mg/dL (70-99); Magnesium 2.2 mg/dL (1.5-2.2); Potassium 4.1 mmol/L (3.3-5.1); Troponin T High Sensitivity 41 ng/L (<=22)
--- NOTE | 2025-05-03 20:37 | ED.RN ---
2030 walked in room and found pt pulled off his oxgyen,monitor wires and urinated in the bed. Pt resisting care and fighting this nurse to put the items back on. spoke to MD and restraints applied.
--- NOTE | 2025-05-03 20:43 | PCM.HP.STD ---
HPI - General General Date of Admission: 05/03/25 Date of Service: 05/03/25 Chief Complaint: Dyspnea, respiratory distress, hypoxia. HPI Narrative The patient is a 74 y/o M w/ PMHx: Former EtOH abuse, PAD s/p peripheral PCI, PAF reporting that he is on chronic Coumadin therapy, HTN, HLD, Chronic anemia/Fe deficiency anemia, COPD/Asthma w/ Chronic Hypoxic Respiratory Failure (2L NC), Seizure disorder, CKD stage III unclear subtype or GFR trending, GERD, BPH with obstructive pathology, Anxiety and depression, PJ, Former tobacco use, Hx CVA with significant chronic aphasia, dysphagia, R sided hemiplegia with PEG tube who presents to the [facility] ED on 05/03/2025 with unfortunately persistent dyspnea noted to be tripoding and in severe [facility] his [facility] prompting EMS call with patient noted to be 70% on 4 L at their initial assessment prompting emergent transition to the ED for evaluation. Workup in the ED included T98.3, heart rate 89, BP 132/62, respiratory rate 23, 89% on 4 L nasal cannula eventually transition to Airvo noted to be 93% on 55% FiO2 with most recent repeat vitals now heart rate 91, BP 127/65, respiratory rate 25, 93% oxygenation, CBC with WBC 10.8, Susan 10.4, MCV 85.6, platelet 48 with left shift, VBG not marked appearing aside from bicarb 28 on CPAP, BMP with BUN/[place] 36/1.42, GFR 52, glucose 126, magnesium 2.2, troponin 41, chest CTA with no evidence of pulmonary emboli, spiculated density left upper lobe, EKG [], rapid SARS COVID/influenza/RSV negative. In the ED patient ministered DuoNeb therapy x 2, Solu-Medrol 125 mg IV x 1. [facility] Medical History CVA (cerebral vascular accident) Aphasia Debility COPD (chronic obstructive pulmonary disease) Current use of snf anticoagulation History of atrial fibrillation Obstructive sleep apnea Seizure disorder Lupus anticoagulant disorder Bronchospasm, acute Aspiration into respiratory tract Acute and chronic respiratory failure with hypoxia Hypertension Dyspnea Acute CVA (cerebrovascular accident) Hypertension Weakness Failure to thrive Compression fx, lumbar spine Hypertension Falls Hypertension Closed fracture of right superior pubic ramus Multiple falls Compression fracture of thoracic vertebra Iron deficiency anemia Chronic respiratory failure with hypoxia Osteoporosis Lumbar compression fracture Compression fracture Hyperlipidemia Asthma Peripheral arterial occlusive disease Chronic obstructive pulmonary disease Coronary artery disease BPH (benign prostatic hyperplasia) Ulcerative colitis Peripheral vascular disease Anxiety COPD (chronic obstructive pulmonary disease) with emphysema Closed fracture of right inferior pubic ramus Acute UTI COPD (chronic obstructive pulmonary disease) UTI (urinary tract infection) Depression Diabetes Kidney stones Chronic pain Pancreatitis On home oxygen therapy Irregular heart beat Atrial fibrillation Stroke/cerebrovascular accident Smoker Falls frequently Seizures Sleep apnea COPD (chronic obstructive pulmonary disease) Asthma High cholesterol Tobacco abuse Home Medications ?Medication ?Instructions ?Recorded ?Last Taken ?Type acetaminophen 325 mg tablet 650 mg (2 x 325 mg) feeding tube 12/24/24 Unknown Rx Q6H PRN PRN Pain 1-10 Or Fever>100.7 #0 tabs albuterol sulfate 2.5 mg/3 mL 2.5 mg (3 mL) inhalation Q4H PRN 12/24/24 Unknown Rx (0.083 %) solution for nebulization DYSPNEA/WHEEZING/SOB #0 mL amlodipine 10 mg tablet 10 mg G-tube DAILY.RT #0 tabs 12/24/24 Unknown Rx carbamazepine 100 mg/5 mL oral 200 mg (10 mL) G-tube 4X/DAY #0 mL 12/24/24 Unknown Rx suspension cholecalciferol (vitamin D3) 50 50 mcg feeding tube DAILY 12/24/24 01/05/25 Rx mcg (2,000 unit) tablet SUPPLEMENT 30 days #30 tabs clonidine 0.2 mg/24 hr weekly 0.2 mg transdermal Q7D #0 ea 12/24/24 Unknown Rx transdermal patch ergocalciferol (vitamin D2) 1,250 1,250 mcg feeding tube Q7D 12/24/24 12/13/24 08:58 Rx mcg (50,000 unit) capsule (Vitamin SUPPLEMENT #0 caps D2) finasteride 5 mg tablet 5 mg feeding tube DAILY prostate 12/24/24 12/13/24 08:58 Rx 30 days #30 tabs ipratropium 0.5 mg-albuterol 3 mg 3 ml inhalation .q6hwa #0 mL 12/24/24 Unknown Rx (2.5 mg base)/3 mL nebulization soln lactose-reduced food with fiber 55 ml feeding tube .18hours #5,688 12/24/24 Unknown Rx 0.06 gram-1.5 kcal/mL oral liquid mL (Jevity 1.5 Alex) losartan 100 mg tablet 100 mg feeding tube DAILY Blood 12/24/24 12/13/24 08:58 Rx pressure 30 days #30 tabs melatonin 3 mg tablet 3 mg G-tube QHS PRN PRN Insomnia 12/24/24 Unknown Rx #0 tabs mirtazapine 15 mg tablet 15 mg feeding tube QHS anti 12/24/24 12/12/24 20:59 Rx depressant 30 days #30 tabs sertraline 100 mg tablet 100 mg feeding tube DAILY 12/24/24 Unknown Rx DEPRESSION 30 days #30 tabs thiamine HCl (vitamin B1) 100 mg 100 mg G-tube BREAKFAST #0 tabs 12/24/24 Unknown Rx tablet hydralazine 25 mg tablet 50 mg G-tube 3XD 01/03/25 Unknown History metoprolol tartrate 25 mg tablet 50 mg feeding tube BID Blood 01/03/25 Unknown History pressure apixaban 5 mg tablet (Eliquis) 5 mg G-tube BID #0 tabs 01/08/25 Unknown Rx atorvastatin 40 mg tablet 40 mg G-tube QHS #0 tabs 01/08/25 Unknown Rx lansoprazole 30 mg capsule,delayed 30 mg feeding tube BID #1 cap 01/08/25 Unknown Rx release (Prevacid) Allergy/AdvReac Type Severity Reaction Status Date / Time No Known Allergies Allergy Verified 01/23/25 10:30 Family History Mother Heart disease CVA (cerebral vascular accident) Hypertension Father Heart disease CVA (cerebral vascular accident) Hypertension Surgical History S/P arterial stent History of appendectomy Social History household members: caregiver housing: prison 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 Smoking Status: Light Smoker (<10/day) alcohol intake: former details: Former alcoholic quit several years ago substance use type: does not use caffeine: Yes Type: coffee Number of servings: 3 ROS Review of Systems ROS Unobtainable: due to mental condition Vital Signs Vital Signs Vital Signs: 05/03/25 17:27 05/03/25 17:31 05/03/25 17:54 Temperature 98.3 F Temperature Source Axillary Pulse Rate 89 Respiratory Rate 23 H Respiratory Effort Short of Breath Respiratory Pattern Tachypnea Blood Pressure 132/62 H Blood Pressure Mean 85 Pulse Ox 89 92 Oxygen Delivery Method Nasal Cannula Nasal Cannula Nasal Cannula Oxygen Flow Rate (L/min) 4 6 Fraction of Inspired Oxygen (FIO2) 05/03/25 17:55 05/03/25 17:58 05/03/25 18:28 Temperature Temperature Source Pulse Rate 90 64 Respiratory Rate 22 H 18 Respiratory Effort Respiratory Pattern Irregular Blood Pressure 137/78 H Blood Pressure Mean 97 Pulse Ox 93 98 Oxygen Delivery Method Airvo Room Air Oxygen Flow Rate (L/min) 45 Fraction of Inspired Oxygen (FIO2) 55 05/03/25 18:31 05/03/25 19:00 05/03/25 19:23 Temperature 98.7 F 98.2 F Temperature Source Oral Oral Pulse Rate 93 89 91 Respiratory Rate 27 H 26 H 25 H Respiratory Effort Respiratory Pattern Blood Pressure 138/56 H 147/65 H 147/65 H Blood Pressure Mean 83 92 92 Pulse Ox 93 95 93 Oxygen Delivery Method High Flow High Flow Oxygen Flow Rate (L/min) Fraction of Inspired Oxygen (FIO2) 05/03/25 19:30 05/03/25 19:45 05/03/25 20:00 Temperature 98.0 F Temperature Source Temporal Pulse Rate 88 91 90 Respiratory Rate 18 21 H 20 H Respiratory Effort Respiratory Pattern Blood Pressure 106/64 144/59 H 143/68 H Blood Pressure Mean 75 83 93 Pulse Ox 96 Oxygen Delivery Method High Flow Oxygen Flow Rate (L/min) Fraction of Inspired Oxygen (FIO2) 05/03/25 20:00 05/03/25 20:15 05/03/25 20:24 Temperature Temperature Source Pulse Rate 99 117 H Respiratory Rate 23 H Respiratory Effort Respiratory Pattern Blood Pressure 141/94 H 143/68 H Blood Pressure Mean 109 87 Pulse Ox Oxygen Delivery Method Oxygen Flow Rate (L/min) Fraction of Inspired Oxygen (FIO2) 05/03/25 20:30 Temperature Temperature Source Pulse Rate 100 Respiratory Rate 33 H Respiratory Effort Respiratory Pattern Blood Pressure 159/55 H Blood Pressure Mean 82 Pulse Ox 85 Oxygen Delivery Method Oxygen Flow Rate (L/min) Fraction of Inspired Oxygen (FIO2) Weight Weight: 135 lb 2.294 oz Body Mass Index (BMI) 18.3 Physical Exam Narrative Physical Examination: General: Awake, appears alert but not answering any orientation questions, extremely aphasic, laying in the ED bed, currently on supplemental oxygen, off airvo, wrist restraints in place as patient pulling out all of his access and oxygen supplementation. Skin: Normal color, normal turgor, no icterus, no cyanosis except occasional stage ecchymoses, abrasions. HEENT: AT/NC, EOMI, chronic significant right pupil abnormality, mildly dry MM, chronic left facial droop. Lungs: Severely diffusely diminished, greater bases, mild increased respiratory rate but no overt distress, occasional very distant end expiratory wheeze but not severe currently, very poor air movement, resolution of previously reported tripoding. Heart: Regular rate and rhythm; no gallop, rub audible. Abdomen: Soft, NTTP, ND, normal BS, PEG tube in place, no appreciated HSM. Extremities: No cyanosis, no clubbing, no significant distal edema. Neurological: Awake, appears alert but not answering any orientation questions, extremely aphasic, cognitive function chronically significantly decreased secondary to previous stroke, cranial nerves difficult to assess given command difficulties with significant stroke deficits chronically, chronic pupillary changes as noted, global aphasia, intermittently moving extremities been ongoing any commands, history of chronic right-sided mild hemiplegia. Psychiatric: Affect appears flat, no acute evidence of depressive or anxiety feelings. Results Lab / Micro Data 05/03/25 18:10 05/03/25 18:10 Labs: Laboratory Results - last 24 hr 05/03/25 18:10: WBC 10.8, RBC 4.09 L, Hgb 10.4 L, Hct 35.0 L, MCV 85.6, MCH 25.4 L, MCHC 29.7 L, RDW Std Deviation 55.7 H, RDW Coeff of Aly 17.8 H, Plt Count 488 H, MPV 10.1, Immature Gran % (Auto) 0.300, Neut % (Auto) 81.6 H, Lymph % (Auto) 9.9 L, [place] % (Auto) 6.9, Eos % (Auto) 0.7, Baso % (Auto) 0.6, Absolute Neuts (auto) 8.8 H, Absolute Lymphs (auto) 1.07, Nucleated RBC % 0, Sodium 142, Potassium 4.1, Chloride 102, Carbon Dioxide 27.3, Anion Gap 12, BUN 36 H, Creatinine 1.42 H, Estim Creat Clear Calc 38.97 L, Est GFR (MDRD) Non-Af 52 L, BUN/Creatinine Ratio 25.5 H, Glucose 126 H, Calcium 9.9, Magnesium 2.2, Troponin T High Sens 41 H D Micro: Microbiology 05/03/25 18:31 Mucosa - Nose SARS-CoV-2, Influenza & RSV (PCR) - Final ABG Data ABG results: ABG 05/03/25 18:25 Specimen Type LASHAE Sample Site Not entered O2 % 55.0 VBG pH 7.41 VBG pO2 27 VBG HCO3 28 H VBG Total CO2 30 VBG O2 Sat (Calc) 51 VBG Base Excess 3 POC Mix VBG pCO2 Pt Tmp 44.6 O2 Delivery Device CPAP Clinical Comments Airvo 45L 55% Imaging Radiology Impression Chest CTA 05/03/25 17:47 IMPRESSION: 1. Negative for pulmonary embolus. 2. Spiculated density in the left upper lobe. If possible consider correlation with PET-CT. No prior studies. At a congressional representative level on image 136, this measures 31 x 22 mm with neoplasm to be excluded Reading Location: [facility] Assessment & Plan Assessment/Plan (1) COPD with exacerbation: PLAN: Plan The patient is a 74 y/o M w/ PMHx: Former EtOH abuse, PAD s/p peripheral PCI, PAF reporting that he is on chronic Coumadin therapy, HTN, HLD, Chronic anemia/Fe deficiency anemia, COPD/Asthma w/ Chronic Hypoxic Respiratory Failure (2L NC), Seizure disorder, CKD stage III unclear subtype or GFR trending, GERD, BPH with obstructive pathology, Anxiety and depression, PJ, Former tobacco use, Hx CVA with significant chronic aphasia, dysphagia with PEG tube, R sided hemiplegia who presents to the [facility] ED on 05/03/2025 with unfortunately persistent dyspnea noted to be tripoding and in severe distress at his [facility] facility prompting EMS call with patient noted to be 70% on 4 L at their initial assessment prompting emergent transition to the ED for evaluation. #1. Acute on Chronic Hypoxic Respiratory Failure secondary to Acute on Chronic COPD/Asthma exacerbation with incidentally noted spiculated mass: Will admit to PCU, currently transitioned off CPAP-> Airvo in the ED now on 6 L nasal cannula per discussion with ED physician, will wean oxygen as able down to home 2 L nasal cannula, low threshold to utilize nightly BiPAP versus airvo as patient is noncompliant normally with PAP therapy unfortunately, will maintain on ATC duonebs, PRN albuterol, IV methylprednisolone, HOB, IS parameters, will obtain sputum Cx, respiratory viral panel, procalcitonin, will hold on immediately abx therapy but low threshold to add if appropriate. Patient has noted with CT findings with concern for mass, will need follow-up outpatient with pulmonary at discharge. #2. Indeterminate cardiac enzyme likely secondary to hypoxemia, demand given #1: Admission troponin 41, magnesium 2.2, chest CT with concern for spiculated density in the left upper lobe otherwise no acute cardiopulmonary findings, will maintain on telemetry, continue to cycle cardiac enzymes to be cautious. Patient will be continued on home Eliquis regimen. #3. Hx CVA with history of bilateral carotid stenosis: Patient prison dependent with significant chronic aphasia, R sided hemiplegia, dysphagia with PEG tube, will maintain on aspiration/fall precautions, continue tube feeds, continue Eliquis, statin, hypertensive regimen as noted. #3. Hypertension: Continue home regimen including clonidine TD, hydralazine, losartan, metoprolol, amlodipine, PRN hydralazine. #4. Chronic Kidney Disease Stage II per GFR trending: Admission BUN/Cr 36/1.42, GFR 52, baseline renal function 1.1-1.2 primarily, repeat BMP in AM. #5. Chronic normocytic anemia/iron deficient anemia: Admission hemoglobin 10.4, MCV 85.6 baseline hemoglobin more recently 9-10, stable, continue to trend. #6. PAF: Will continue patient home metoprolol regimen, will continue home Eliquis regimen cautiously. #7. Hyperlipidemia: Will continue patient on statin therapy. #8. Anxiety and depression: Will continue patient home sertraline and mirtazapine home regimen #9. BPH with obstructive pathology: Will continue patient on Flomax and finasteride regimen, monitor for retention. #10. GERD: Will continue patient on PPI. #11. Seizure disorder: Continue home carbamazepine regimen. #12. Former tobacco use: Encourage continued tobacco cessation. #13. PJ: Noncompliant with PAP therapy, will maintain on high flow/CPAP. #14. PAD: Will continue patient Eliquis, statin, hypertensive regimen as noted. #15. Former alcohol abuse: Encourage continued sobriety. #16. DVT prophylaxis: Will continue patient home Eliquis regimen. #17. CODE status: Per Skilled facility current code status Full Code. Charges/Coding Visit Charges Inpatient E&M: 26287 Init Hosp L3
[2025-05-03 21:05] LABS: Troponin T High Sens 2 HR 34 ng/L (<=22)
--- OUTSIDE RECORDS SUMMARY | 2025-05-03 21:09 | XMS RPT_ITS | CCD ---
Author Organization [facility]ini[facility]ms Care Team Providers Care Rn Gastroenterology Name Role Phone Selene RANDALL, Daija Primary Care Provider Madeline PATIENT CARE ASSOCIATE, Beatriz Unavailable Unavailab johnson Morton MD, Daija [...] Morton MD Unavailable Mode RANDALL, Ye Unavailable hSania DENISE, Emilie Smart Unavailable Ryan May MD [...] Provider 13, Pharmacist Unavailable Raúl RANDALL, Kaye yLon Unavailable Mode RANDALL, Ye Unavailable Emilie Jauregui [...] Oscar, Dr. Wallace Other Provider [phone] Geronimo Medina DO [...] Provider Dr. Elton Moore Other Provider [phone] Raul Melchor Emergency Provider Dr. Андрей [...] Dr. Aguirre Attending Provider Unavaila ble Older TRANSLITERATOR.PATIENT CARE ASSOCIATE, Anjel Unavailable Aaron GUTIERREZ, Dr. Vizcaino Emergency Provider [phone] Ben RANDALL, Dr. Shilpa Ashton Admit Provider Ben RANDALL, Dr. Shilpa Ashton Attending Provider Ben RANDALL, Dr. Shilpa Ashton Other Provider Selene RANDALL, Dr. Choe Primary Care Provider Shania RANDALL, Dr. Stanley Emergency Provider Albin GUTIERREZ, Dr. Husain Admit Provider Albin GUTIERREZ, Dr. uHsain Attending Provider Albin GUTIERREZ, Dr. Husain Other [...] Provider Jairo RANDALL, Dr. Bowens Other Provider [phone] Rolly RANDALL, Dr. Guzman Other Provider Hoang RANDALL, Dr. Mcclure Other Provider [phone] aJsper RANDALL, Dr. Lara Other Provider Tim RANDALL, Dr. Tineo Other Provider Sam [...] Other Provider Saul RANDALL, Jo Other Provider [phone] CELIA RANDALL, JOSETTE Other Provider Inez RANDALL, Angelo Other Provider [phone] Tanesha RANDALL, Neelam Other Provider Mikey [...] Mateo RANDALL, Referring Provider Unavaila deandre Doss RELEASE MANAGER-C, Josefa Attending Provider Trina RANDALL, Dr. Peters Primary Care Provider Trina RANDALL, Dr. Peters Attending Provider Trina RANDALL, Dr. Peters Primary Care Provider Romario RELEASE MANAGER-C, Josefa Attending Provider Selene RANDALL, Dr. Choe Primary Care Provider Rosa Maria RANDALL, Dr. Aguirre Attending Provider Unavaila deandre Guerin DO, Dr. Davis Referring Provider ROSA MARIA RANDALL, DR CARLA Damon Primary Care Physician [phone] MAGDALENE POWELL DO Attending Unavailable ROSA MARIA RANDALL, DR CARLA Damon Primary Care Unavailabl Lisha Uriarte Admitting Unavailable Ganta, Daija Primary Care Unavailable Albin Lisha Consulting Unavailable Celia Toribio Attending Unavailable Elton Moore Consulting Unavailable Celia Toribio Consulting Unavailable Hannah Busch Attending Unavailable [facility] Unavailable [facility], Daija Referring Unavailable Josefa Doss NP Attending Unavailable [facility] Unavailable Lisha Talamantes Attending Unavailable [facility] Unavailable White, Shilpa L Admitting Unavailable White, Shilpa L Consulting Unavailable Albin, Lisha Consulting Unavailable Yaya Talamantesyn Attending Unavailable [facility], Daija Primary Care Unavailable White, Shilpa L Admitting Unavailable White, Shilpa L Consulting Unavailable Albin, Lisha Admitting Unavailable Albin Lisha Consulting Unavailable Celia Toribio Attending Unavailable [facility] Primary Care Unavailable Celia Toribio [...] Unavailable Oleghe, Efewongbe Primary Care Unavailable [place] RELEASE MANAGER, Josefa Attending Unavailable [place] RELEASE MANAGER, Josefa Attending Unavailable Olee, Efewongbe Primary Care Unavailable Olee, Efewongbe Primary Care Unavailable Olee, Efewongbe Attending Unavailable Lisha Talamantes Attending Unavailable [place], Ricardo Consulting Unavailable Hinduja, Amy Consulting Unavailable [...] Consulting Unavailable Lisha Talamantes Referring Unavailable [place] RELEASE MANAGER, Josefa Attending Unavailable [facility], [facility] Primary Care Unavailable Olee, Efewongbe Referring Unavailable [facility] Unavailable Mackenzie Dangelo Attending Unavailable [place] RELEASE MANAGER, Josefa Attending Unavailable [facility], [place] Primary Care Unavailable Florencioton RELEASE MANAGER, Josefa Attending Unavailable [facility] Primary Care Unavailable Roman Patel Consulting Unavailable Jorge Roman Admitting Unavailable Roman Patel Attending Unavailable [facility] Primary Care Unavailable Ricardo Mccullough Consulting Unavailable Lisha Talamantes Attending Unavailable [facility] Primary Care Unavailable Jorge Roman Admitting Unavailable [...] Ganta, Daija Primary Care Unavailable Oleghe KOFFI Efml Attending Unavailabl e Oleghe, Efewongbe Primary Care [...] Start: 08-22-2023 End: 12-24-2024 168 hr cloNIDine 0.49283 mg/ hr transdermal system (20 sources) Central [...] Comment on above: Take 1 capsule by [facility] once daily. traMADol hydrochloride 50 mg oral [...] unspecified emphysema type (HCC) Aerosol supplies Dx:J44.1 NPI#[id number] 1 Each 2 04/11/2018 02/02/2022 Discontinued (Duplicate Entry) Start: 04-11-2018 End: 02-02-2022 COMPOUNDED PRESCRIPTION Tamela cations: Pulmonary emphysema, unspecified emphysema type (HCC) NEBULIZER FOR HOME USE. DX: Emphysema, COPD 1 Each 3 04/11/2018 02/02/2022 Discontinued (Duplicate Entry) Start: 04-11-2018 COMPOUNDED PRE SCRIPTION Indications: Pulmonary emphysema, unspecified emphysema type (HCC) Aerosol supplies Dx:J44.1 NPI#[id number] 1 Each 2 04/11/2018 Active Start: 04-11-2018 COMPOUNDED PRE SCRIPTION Indications: Pulmonary emphysema, unspecified emphysema type (HCC) NEBULIZER FOR HOME USE. DX: Emphysema, COPD 1 Each 3 04/11/2018 Active Comment on above: Aerosol supplies Dx: J44.1 NPI#[id number] NEBULIZER FOR HOME U SE. DX: Emphysema, COPD 12 hr dextromethorphan hydrobromide 60 mg / guaiFENesin 1200 mg extended release oral tablet (20 sources) Uncompetitive B-auemav-F-aspartate Receptor Antagonist, Sigma-1 Agonist Start: 09-02-2024 End: [...] Compression fracture of L2 vertebra, initial encounter ([facility]) Take 1 capsule by mouth [...] on above: Take 1 capsule by mo [facility] once daily as needed for Constipation. Take with pain medication docusate sodium 50 mg / sennosides, retirement 8.6 mg oral tablet (20 sources) Start: [...] Corticosteroid, beta2-Adrenergic Agonist Start: 03-24-2020 End: 04-05-2021 qyyiftkozjs-dtacsmjor-ez lanter (TRELEGY ELLIPTA) 100-62.5-25 mcg [The details [...] on above: Take 1 capsule by mo wih once daily. Take 2 capsules by m [...] End: 12-07-2015 Start: 12-02-2015 End: 12-07-2015 Ipratropium [place] (Atroven t (Sp)) 12.9 GM inhaler Discontinued 2 NMA INHALATION EVERY 6 HOURS December 02, 2015 12:00am December 07, 2015 10:01am Start: 12-02-2015 End: 12-07-2015 take 1 puff(s) by inhalation every six hours Ipratropium [place] (Atrovent (Sp)) 12.9 GM inhaler Discontinued 2 [...] mg tablet Indications: Coronary artery disease involving [place] coronary artery of [place] heart without angina pectoris Take 1 tablet [...] End: 12-07-2015 Start: 12-02-2015 End: 12-07-2015 Tiotropium [place] (Spiriva 18 Mcg) 1 PUFF inhaler Discontinued 1 NMA INHALATION DAILY December 02, 2015 12:00am December 07, 2015 10:02am Start: 12-02-2015 End: 12-07-2015 Start: 12-02-2015 End: 12-07-2015 take 1 puff(s) by inhalation once daily Tiotropium [place] (Spiriva 18 Mcg) 1 PUFF inhaler Discontinued 1 PUFF INHALATION DAILY December 01, 2015 11:00pm December 07, 2015 9:02am Start: 01-26-2014 End: 09-29-2015 Start: 01-26-2014 End: 09-29-2015 take 1 puff(s) by inhalation once daily Tiotropium [place] (Spiriva With Handihaler) 1 PUFF inhaler Discontinued 1 NMA INHALATION DAILY January 26, 2014 12:00am September 29, 2015 1:10pm Start: 01-26-2014 End: 09-29-2015 Start: 01-26-2014 End: 09-29-2015 take 1 puff(s) by inhalation once daily Tiotropium [place] (Spiriva With Handihaler) 1 PUFF inhaler Discontinued [...] ing 09/13/2021 Take 2 tablets by mo [facility] once daily. As dosed based on PT/INR [...] Coronary arteriosclerosis; Translations: [Atherosclerotic heart disease of [place] coronary artery without angina pectoris] Onset: 3 [...] sources) Long-term current use of anticoagulant; Translations: [residential (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 of anticoagulants] 02-09-2019 Episodic Comment on above: On warfarin Other aftercare (1 source) Prescribed medication regimen behavior finding; Translations: [residential (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 of opiate analgesic] Episodic Other aftercare (20 sources) Drug therapy status; Translations: [residential (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 of anticoagulants] 08-18-2021 Episodic Other aftercare (20 sources) 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; Translations: [Long-term (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 of anticoagulants] Episodic Other aftercare (20 sources) Drug therapy finding; Translations: [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 supervisor (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 of 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 analgesic] 02-09-2019 Episodic [...] 12-17-2019 Episodic Other aftercare (1 source) 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; Translations: [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] Onset: 12-24-2024 Episodic Other [...] FAQ page (http://www.e-imo.co m/faq/vocabportal_fa q.aspx) or contact [facility] Customer Support at [email or web address] 03-20-2013 Results Test Name Value Interpretation Reference [...] 4:14:48 AM Ordering Provider: MAGDALENE POWELL RP [facility] CT MAXILLOFACIAL W/O CONTRAS Ton 03-18-2025 [...] 4:22:40 AM Ordering Provider: MAGDALENE POWELL RP [facility] CT SPINE CERVICAL W/O CONTRA STon [...] AM Ordering Provider: MAGDALENE POWELL RP Normal [facility] Absolute lymphocyte countOrd ered By: Lorraine Mena on 02-18-2025 Lymphocytes Auto (Unsp spec) [#/Vol] 0.91 10*3/uL 0.83-4.51 [facility] Anion gap in Serum or Plasma Ordered By: Lorraine Mena on 02-18-2025 Anion gap [Moles/Vol] 12 mmol/L 5-15 [facility] Automated lymphocyte count a s percentage of total leukocytesOrdered By: Lorraine Mena on 02-18-2025 Lymphocytes/100 WBC Auto (Unsp spec) 9.9 % Low 19-41 [facility] BUN/creatinine ratioOrdered By: Lorraine Mena on 02-18-2025 Urea nitrogen/Creatinine [Mass ratio] 16.0 mg/mg 10-20 [facility] Basophil percentageOrdered B y: Lorraine Mena on 02-18-2025 Basophils/100 WBC (Bld) 0.5 % 0-1 [facility] Calculated very low density lipoprotein (VLDL) cholesterol measurementOrdered By: Lorraine Mena on 02-18-2025 Calculated very low density lipoprotein (VLDL) cholesterol measurement 17 mg/dL 5-40 [facility] Carbon dioxide, total [Moles /volume] in Central venous bloodOrdered By: ml Mena on 02-18-2025 CO2 [Moles/Vol] 26.0 mmol/L 21.0-32.0 [facility] Chloride assayOrdered By: Ledy Mena on 02-18-2025 Chloride [Moles/Vol] 99 mmol/L 98-108 [facility] Eosinophil percentageOrdered By: Lorraine Mena on 02-18-2025 Eosinophils/100 WBC (Bld) 0.4 % 0-5 [facility] Erythrocyte distribution wid th ratioOrdered By: [facility] Mena on 02-18-2025 Erythrocyte distribution width (RBC) [Ratio] 16.4 % High 11.6-14.6 [facility] Erythrocyte distribution wid th standard deviationOrdered By: Roselynmiddletownthao Mena on 02-18-2025 Erythrocyte distribution width (RBC) [Ratio] 51.2 fl High 35.1-43.9 [facility] Glomerular filtration rate ( GFR) estimation/1.73 sq m using serum, plasma, or whole bOrdered By: Lorraine Mena on 02-18-2025 GFR/1.73 sq M.predicted among non-blacks MDRD (S/P/Bld) [Vol rate/Area] 66 mL/min/{1.73_m2} >60 [facility] Hematocrit Auto (Bld) [Volum e fraction]Ordered By: Lorraine Mena on 02-18-2025 Hematocrit (Bld) [Volume fraction] 32.2 % Low 40-54 [facility] Hemoglobin measurementOrdere d By: Lorraine Mena on 02-18-2025 Hemoglobin (Bld) [Mass/Vol] 9.9 g/dL Low 13.0-16.5 [facility] Immature granulocytes/100 WB C Auto (Bld)Ordered By: Lorraine Mena on 02-18-2025 Immature granulocytes/100 WBC (Bld) 0.500 % 0.0-0.9 [facility] LDL calc ser/plasOrdered By: Ledyroelorri Mena on 02-18-2025 Cholesterol in LDL [Mass/Vol] 61 mg/dL [facility] MCV (mean corpuscular volume ) determinationOrdered By: ml Almonteemi on 02-18-2025 MCV (RBC) [Entitic vol] 85.6 fL 80-94 [facility] Mean corpuscular hemoglobin (MCH) determinationOrdered By: Lorraine Mena on 02-18-2025 MCH (RBC) [Entitic mass] 26.3 pg Low 27.0-32.0 [facility] Monocyte percentageOrdered B y: Lorraine Almonteemi on 02-18-2025 Monocytes/100 WBC (Bld) 5.9 % 0-10 [facility] Neutrophil percentageOrdered By: ml Mena on 02-18-2025 Neutrophils/100 WBC (Bld) 82.8 % High 47-70 [facility] Platelet countOrdered By: Ledy Mena on 02-18-2025 Platelets (Bld) [#/Vol] 454 10*3/uL High 150-450 [facility] Potassium measurement (mass/ volume)Ordered By: Ledyroelorri Emmettbandaremi on 02-18-2025 Potassium (Unsp spec) [Mass/Vol] 4.0 mmol/L 3.3-5.1 [facility] RBC Auto (Bld) [#/Vol]Ordere d By: Lorraine Mena on 02-18-2025 RBC (Bld) [#/Vol] 3.76 10*6/uL Low 4.6-6.2 [facility] Serum creatinine measurement (mass/volume)Ordered By: Nettiethao Christinebandaremi on 02-18-2025 Creatinine [Mass/Vol] 1.16 mg/dL 0.70-1.20 [facility] Serum glucose measurement (m ass/volume)Ordered By: Lorraine Mena on 02-18-2025 Glucose [Mass/Vol] 112 mg/dL High 70-99 [facility] Serum or plasma calcium luis urement (mass/volume)Ordered By: Lorraine Mena on 02-18-2025 Calcium [Mass/Vol] 9.5 mg/dL 7.6-11.0 [facility] Serum or plasma cholesterol in HDL measurement (mass/volume)Ordered By: Lorraine Mena on 02-18-2025 Cholesterol in HDL [Mass/Vol] 96 mg/dL >40 [facility] Serum or plasma cholesterol measurement (mass/volume)Ordered By: Lorraine Mena on 02-18-2025 Cholesterol [Mass/Vol] 174 mg/dL <201 [facility] Serum or plasma urea nitroge n measurement (mass/volume)Ordered By: Lorraine Mena on 02-18-2025 Urea nitrogen [Mass/Vol] 19 mg/dL 4-19 [facility] Sodium levelOrdered By: Roselyn Mena on 02-18-2025 Sodium [Moles/Vol] 137 mmol/L 133-145 [facility] White blood cell (WBC) count Ordered By: Lorraine Mena on 02-18-2025 WBC (Bld) [#/Vol] 9.2 10*3/uL 4.4-11.0 [facility] Absolute lymphocyte countOrd ered By: Lorraine Mena on 02-11-2025 Lymphocytes Auto (Unsp spec) [#/Vol] 1.18 10*3/uL 0.83-4.51 [facility] Anion gap in Serum or Plasma Ordered By: Lorraine Mena on 02-11-2025 Anion gap [Moles/Vol] 11 mmol/L 5-15 [facility] Automated lymphocyte count a s percentage of total leukocytesOrdered By: Lorraine Mena on 02-11-2025 Lymphocytes/100 WBC Auto (Unsp spec) 16.0 % Low 19-41 [facility] BUN/creatinine ratioOrdered By: Lorraine Mena on 02-11-2025 Urea nitrogen/Creatinine [Mass ratio] 23.5 mg/mg High 10-20 [facility] Basophil percentageOrdered B y: Lorraine Christinebandaremi on 02-11-2025 Basophils/100 WBC (Bld) 0.7 % 0-1 [facility] Calculated very low density lipoprotein (VLDL) cholesterol measurementOrdered By: Lorraine Mena on 02-11-2025 Calculated very low density lipoprotein (VLDL) cholesterol measurement 19 mg/dL 5-40 [facility] Carbon dioxide, total [Moles /volume] in Central venous bloodOrdered By: Lorraine Mena on 02-11-2025 CO2 [Moles/Vol] 26.3 mmol/L 21.0-32.0 [facility] Chloride assayOrdered By: Ledy Mena on 02-11-2025 Chloride [Moles/Vol] 101 mmol/L 98-108 [facility] Eosinophil percentageOrdered By: Lorraine Mena on 02-11-2025 Eosinophils/100 WBC (Bld) 0.9 % 0-5 [facility] Erythrocyte distribution wid th ratioOrdered By: Lorraine Mena on 02-11-2025 Erythrocyte distribution width (RBC) [Ratio] 16.5 % High 11.6-14.6 [facility] Erythrocyte distribution wid th standard deviationOrdered By: Lorraine Mena on 02-11-2025 Erythrocyte distribution width (RBC) [Ratio] 51.8 fl High 35.1-43.9 [facility] Glomerular filtration rate ( GFR) estimation/1.73 sq m using serum, plasma, or whole bOrdered By: Lorraine Mena on 02-11-2025 GFR/1.73 sq M.predicted among non-blacks MDRD (S/P/Bld) [Vol rate/Area] 72 mL/min/{1.73_m2} >60 [facility] Hematocrit Auto (Bld) [Volum e fraction]Ordered By: Lorraine Mena on 02-11-2025 Hematocrit (Bld) [Volume fraction] 31.3 % Low 40-54 [facility] Hemoglobin measurementOrdere d By: Lorraine Mena on 02-11-2025 Hemoglobin (Bld) [Mass/Vol] 10.0 g/dL Low 13.0-16.5 [facility] Immature granulocytes/100 WB C Auto (Bld)Ordered By: Lorraine Mena on 02-11-2025 Immature granulocytes/100 WBC (Bld) 0.400 % 0.0-0.9 [facility] LDL calc ser/plasOrdered By: Lorraine Mena on 02-11-2025 Cholesterol in LDL [Mass/Vol] 56 mg/dL [facility] MCV (mean corpuscular volume ) determinationOrdered By: ml Mena on 02-11-2025 MCV (RBC) [Entitic vol] 86.5 fL 80-94 [facility] Mean corpuscular hemoglobin (MCH) determinationOrdered By: roemiddletownthao Mena on 02-11-2025 MCH (RBC) [Entitic mass] 27.6 pg 27.0-32.0 [facility] Monocyte percentageOrdered B y: Lorraine Mena on 02-11-2025 Monocytes/100 WBC (Bld) 9.3 % 0-10 [facility] Neutrophil percentageOrdered By: roemiddletownthao Mena on 02-11-2025 Neutrophils/100 WBC (Bld) 72.7 % High 47-70 [facility] Platelet countOrdered By: Ledy Mena on 02-11-2025 Platelets (Bld) [#/Vol] 457 10*3/uL High 150-450 [facility] Potassium measurement (mass/ volume)Ordered By: Lorraine Almonteemi on 02-11-2025 Potassium (Unsp spec) [Mass/Vol] 4.3 mmol/L 3.3-5.1 [facility] RBC Auto (Bld) [#/Vol]Ordere d By: Lorraine Mena on 02-11-2025 RBC (Bld) [#/Vol] 3.62 10*6/uL Low 4.6-6.2 [facility] Serum creatinine measurement (mass/volume)Ordered By: Lorraine Almonteemi on 02-11-2025 Creatinine [Mass/Vol] 1.07 mg/dL 0.70-1.20 [facility] Serum glucose measurement (m ass/volume)Ordered By: Lorraine Mena on 02-11-2025 Glucose [Mass/Vol] 78 mg/dL 70-99 [facility] Serum or plasma calcium luis urement (mass/volume)Ordered By: Lorraine Mena on 02-11-2025 Calcium [Mass/Vol] 9.6 mg/dL 7.6-11.0 [facility] Serum or plasma cholesterol in HDL measurement (mass/volume)Ordered By: Lorraine Mena on 02-11-2025 Cholesterol in HDL [Mass/Vol] 98 mg/dL >40 [facility] Serum or plasma cholesterol measurement (mass/volume)Ordered By: Lorraine Mena on 02-11-2025 Cholesterol [Mass/Vol] 173 mg/dL <201 [facility] Serum or plasma urea nitroge n measurement (mass/volume)Ordered By: Lorraine Mena on 02-11-2025 Urea nitrogen [Mass/Vol] 25 mg/dL High 4-19 [facility] Sodium levelOrdered By: Roselyn gauthierdaphney Trina on 02-11-2025 Sodium [Moles/Vol] 138 mmol/L 133-145 [facility] White blood cell (WBC) count Ordered By: Lorraine Mena on 02-11-2025 WBC (Bld) [#/Vol] 7.4 10*3/uL 4.4-11.0 [facility] Urine Legionella pneumophila antigen detectionOrdered By: Lorraine Mena on 02-09-2025 L. pneumophila Ag Ql (U) [facility] Absolute lymphocyte countOrd ered By: Lorraine Mena on 02-03-2025 Lymphocytes Auto (Unsp spec) [#/Vol] 1.05 10*3/uL 0.83-4.51 [facility] Anion gap in Serum or Plasma Ordered By: Lorraine Mena on 02-03-2025 Anion gap [Moles/Vol] 11 mmol/L 5-15 [facility] Automated lymphocyte count a s percentage of total leukocytesOrdered By: Lorraine Mena on 02-03-2025 Lymphocytes/100 WBC Auto (Unsp spec) 13.9 % Low 19-41 [facility] BUN/creatinine ratioOrdered By: Lorraine Mena on 02-03-2025 Urea nitrogen/Creatinine [Mass ratio] 20.3 mg/mg High 10-20 [facility] Basophil percentageOrdered B y: Lorraine Mena on 02-03-2025 Basophils/100 WBC (Bld) 0.8 % 0-1 [facility] Calculated very low density lipoprotein (VLDL) cholesterol measurementOrdered By: Lorraine Mena on 02-03-2025 Calculated very low density lipoprotein (VLDL) cholesterol measurement 25 mg/dL 5-40 [facility] Carbon dioxide, total [Moles /volume] in Central venous bloodOrdered By: Lorraine Mena on 02-03-2025 CO2 [Moles/Vol] 26.5 mmol/L 21.0-32.0 [facility] Chloride assayOrdered By: Ledy Mena on 02-03-2025 Chloride [Moles/Vol] 99 mmol/L 98-108 [facility] Eosinophil percentageOrdered By: Lorraine Mena on 02-03-2025 Eosinophils/100 WBC (Bld) 1.2 % 0-5 [facility] Erythrocyte distribution wid th ratioOrdered By: Lorraine Mena on 02-03-2025 Erythrocyte distribution width (RBC) [Ratio] 16.4 % High 11.6-14.6 [facility] Erythrocyte distribution wid th standard deviationOrdered By: Lorraine Mena on 02-03-2025 Erythrocyte distribution width (RBC) [Ratio] 52.5 fl High 35.1-43.9 [facility] Glomerular filtration rate ( GFR) estimation/1.73 sq m using serum, plasma, or whole bOrdered By: Lorraine Mena on 02-03-2025 GFR/1.73 sq M.predicted among non-blacks MDRD (S/P/Bld) [Vol rate/Area] 66 mL/min/{1.73_m2} >60 [facility] Hematocrit Auto (Bld) [Volum e fraction]Ordered By: Lorraine Mena on 02-03-2025 Hematocrit (Bld) [Volume fraction] 32.1 % Low 40-54 [facility] Hemoglobin measurementOrdere d By: Lorraine Mena on 02-03-2025 Hemoglobin (Bld) [Mass/Vol] 9.9 g/dL Low 13.0-16.5 [facility] Immature granulocytes/100 WB C Auto (Bld)Ordered By: Lorraine Mena on 02-03-2025 Immature granulocytes/100 WBC (Bld) 0.500 % 0.0-0.9 [facility] LDL calc ser/plasOrdered By: roemiddletownthao Mena on 02-03-2025 Cholesterol in LDL [Mass/Vol] 46 mg/dL [facility] MCV (mean corpuscular volume ) determinationOrdered By: Lorraine Mena on 02-03-2025 MCV (RBC) [Entitic vol] 87.2 fL 80-94 [facility] Mean corpuscular hemoglobin (MCH) determinationOrdered By: Lorraine Mena on 02-03-2025 MCH (RBC) [Entitic mass] 26.9 pg Low 27.0-32.0 [facility] Monocyte percentageOrdered B y: Lorraine Mena on 02-03-2025 Monocytes/100 WBC (Bld) 7.4 % 0-10 [facility] Neutrophil percentageOrdered By: Lorraine Mena on 02-03-2025 Neutrophils/100 WBC (Bld) 76.2 % High 47-70 [facility] Platelet countOrdered By: Ledy Mena on 02-03-2025 Platelets (Bld) [#/Vol] 423 10*3/uL 150-450 [facility] Potassium measurement (mass/ volume)Ordered By: Lorraine Mena on 02-03-2025 Potassium (Unsp spec) [Mass/Vol] 3.9 mmol/L 3.3-5.1 [facility] RBC Auto (Bld) [#/Vol]Ordere d By: Lorraine Mena on 02-03-2025 RBC (Bld) [#/Vol] 3.68 10*6/uL Low 4.6-6.2 [facility] Serum creatinine measurement (mass/volume)Ordered By: Lorraine Mena on 02-03-2025 Creatinine [Mass/Vol] 1.15 mg/dL 0.70-1.20 [facility] [facility] Serum glucose measurement (m ass/volume)Ordered By: Lorraine Mena on 02-03-2025 Glucose [Mass/Vol] 91 mg/dL 70-99 [facility] Serum or plasma calcium luis urement (mass/volume)Ordered By: Lorraine Mena on 02-03-2025 Calcium [Mass/Vol] 9.0 mg/dL 7.6-11.0 [facility] Serum or plasma cholesterol in HDL measurement (mass/volume)Ordered By: Lorraine Mena on 02-03-2025 Cholesterol in HDL [Mass/Vol] 88 mg/dL >40 [facility] Serum or plasma cholesterol measurement (mass/volume)Ordered By: Lorraine Mena on 02-03-2025 Cholesterol [Mass/Vol] 159 mg/dL <201 [facility] Serum or plasma urea nitroge n measurement (mass/volume)Ordered By: Lorraine Mena on 02-03-2025 Urea nitrogen [Mass/Vol] 23 mg/dL High 4-19 [facility] Sodium levelOrdered By: Roselyn gauthierdaphney Trina on 02-03-2025 Sodium [Moles/Vol] 136 mmol/L 133-145 [facility] White blood cell (WBC) count Ordered By: Lorraine Mena on 02-03-2025 WBC (Bld) [#/Vol] 7.5 10*3/uL 4.4-11.0 [facility] Absolute lymphocyte countOrd ered By: Lorraine Mena on 01-27-2025 Lymphocytes Auto (Unsp spec) [#/Vol] 1.04 10*3/uL 0.83-4.51 [facility] Anion gap in Serum or Plasma Ordered By: Lorraine Mena on 01-27-2025 Anion gap [Moles/Vol] 12 mmol/L 5-15 [facility] Automated lymphocyte count a s percentage of total leukocytesOrdered By: Lorraine Mena on 01-27-2025 Lymphocytes/100 WBC Auto (Unsp spec) 14.3 % Low 19-41 [facility] BUN/creatinine ratioOrdered By: Lorraine Mena on 01-27-2025 Urea nitrogen/Creatinine [Mass ratio] 23.2 mg/mg High 10-20 [facility] Basophil percentageOrdered B y: Lorraine Mena on 01-27-2025 Basophils/100 WBC (Bld) 0.7 % 0-1 [facility] Calculated very low density lipoprotein (VLDL) cholesterol measurementOrdered By: Lorraine Mena on 01-27-2025 Calculated very low density lipoprotein (VLDL) cholesterol measurement 17 mg/dL 5-40 [facility] Carbon dioxide, total [Moles /volume] in Central venous bloodOrdered By: Lorraine Mena on 01-27-2025 CO2 [Moles/Vol] 26.9 mmol/L 21.0-32.0 [facility] Chloride assayOrdered By: Ledy Mena on 01-27-2025 Chloride [Moles/Vol] 96 mmol/L Low 98-108 [facility] Eosinophil percentageOrdered By: Lorraine Mena on 01-27-2025 Eosinophils/100 WBC (Bld) 1.0 % 0-5 [facility] Erythrocyte distribution wid th ratioOrdered By: Lorraine Mena on 01-27-2025 Erythrocyte distribution width (RBC) [Ratio] 16.7 % High 11.6-14.6 [facility] Erythrocyte distribution wid th standard deviationOrdered By: Lorraine Mena on 01-27-2025 Erythrocyte distribution width (RBC) [Ratio] 53.6 fl High 35.1-43.9 [facility] Glomerular filtration rate ( GFR) estimation/1.73 sq m using serum, plasma, or whole bOrdered By: Lorraine Mena on 01-27-2025 GFR/1.73 sq M.predicted among non-blacks MDRD (S/P/Bld) [Vol rate/Area] 60 mL/min/{1.73_m2} >60 [facility] Hematocrit Auto (Bld) [Volum e fraction]Ordered By: Lorraine Mena on 01-27-2025 Hematocrit (Bld) [Volume fraction] 31.2 % Low 40-54 [facility] Hemoglobin measurementOrdere d By: Lorraine Mena on 01-27-2025 Hemoglobin (Bld) [Mass/Vol] 9.5 g/dL Low 13.0-16.5 [facility] Immature granulocytes/100 WB C Auto (Bld)Ordered By: Ledyroelisathao Christinebandaremi on 01-27-2025 Immature granulocytes/100 WBC (Bld) 0.600 % 0.0-0.9 [facility] LDL calc ser/plasOrdered By: roemiddletownthao Christinebandaremi on 01-27-2025 Cholesterol in LDL [Mass/Vol] 64 mg/dL [facility] MCV (mean corpuscular volume ) determinationOrdered By: Ledyroelorri Emmettbandaremi on 01-27-2025 MCV (RBC) [Entitic vol] 88.4 fL 80-94 [facility] Mean corpuscular hemoglobin (MCH) determinationOrdered By: Ledyml Christinebandaremi on 01-27-2025 MCH (RBC) [Entitic mass] 26.9 pg Low 27.0-32.0 [facility] Monocyte percentageOrdered B y: Lorraine Mena on 01-27-2025 Monocytes/100 WBC (Bld) 7.6 % 0-10 [facility] Neutrophil percentageOrdered By: roemiddletownthao Emmettalex on 01-27-2025 Neutrophils/100 WBC (Bld) 75.8 % High 47-70 [facility] Platelet countOrdered By: ml Emmettbandaremi on 01-27-2025 Platelets (Bld) [#/Vol] 413 10*3/uL 150-450 [facility] Potassium measurement (mass/ volume)Ordered By: Ledyroelisathao Christinebandaremi on 01-27-2025 Potassium (Unsp spec) [Mass/Vol] 4.4 mmol/L 3.3-5.1 [facility] RBC Auto (Bld) [#/Vol]Ordere d By: Lorraine Mena on 01-27-2025 RBC (Bld) [#/Vol] 3.53 10*6/uL Low 4.6-6.2 [facility] Serum creatinine measurement (mass/volume)Ordered By: Lorraine Mena on 01-27-2025 Creatinine [Mass/Vol] 1.25 mg/dL High 0.70-1.20 [facility] Serum glucose measurement (m ass/volume)Ordered By: Lorraine Mena on 01-27-2025 Glucose [Mass/Vol] 86 mg/dL 70-99 [facility] Serum or plasma calcium luis urement (mass/volume)Ordered By: Lorraine Mena on 01-27-2025 Calcium [Mass/Vol] 9.5 mg/dL 7.6-11.0 [facility] Serum or plasma cholesterol in HDL measurement (mass/volume)Ordered By: Lorraine Mena on 01-27-2025 Cholesterol in HDL [Mass/Vol] 81 mg/dL >40 [facility] Serum or plasma cholesterol measurement (mass/volume)Ordered By: Lorraine Mena on 01-27-2025 Cholesterol [Mass/Vol] 161 mg/dL <201 [facility] Serum or plasma urea nitroge n measurement (mass/volume)Ordered By: Lorraine Mena on 01-27-2025 Urea nitrogen [Mass/Vol] 29 mg/dL High 4-19 [facility] Sodium levelOrdered By: Roselyn Mena on 01-27-2025 Sodium [Moles/Vol] 135 mmol/L 133-145 [facility] White blood cell (WBC) count Ordered By: Lorraine Mena on 01-27-2025 WBC (Bld) [#/Vol] 7.3 10*3/uL 4.4-11.0 [facility] Absolute lymphocyte countOrd ered By: Lorraine Mena on 01-20-2025 Lymphocytes Auto (Unsp spec) [#/Vol] 0.97 10*3/uL 0.83-4.51 [facility] Anion gap in Serum or Plasma Ordered By: Lorraine Mena on 01-20-2025 Anion gap [Moles/Vol] 13 mmol/L 5-15 [facility] Automated lymphocyte count a s percentage of total leukocytesOrdered By: Lorraine Mena on 01-20-2025 Lymphocytes/100 WBC Auto (Unsp spec) 14.9 % Low 19-41 [facility] BUN/creatinine ratioOrdered By: Lorraine Mena on 01-20-2025 Urea nitrogen/Creatinine [Mass ratio] 20.4 mg/mg High 10-20 [facility] Basophil percentageOrdered B y: Lorraine Mena on 01-20-2025 Basophils/100 WBC (Bld) 0.6 % 0-1 [facility] Calculated very low density lipoprotein (VLDL) cholesterol measurementOrdered By: Lorraine Mena on 01-20-2025 Calculated very low density lipoprotein (VLDL) cholesterol measurement 16 mg/dL 5-40 [facility] Carbon dioxide, total [Moles /volume] in Central venous bloodOrdered By: Lorraine Mena on 01-20-2025 CO2 [Moles/Vol] 26.0 mmol/L 21.0-32.0 [facility] Chloride assayOrdered By: Ledy Mena on 01-20-2025 Chloride [Moles/Vol] 99 mmol/L 98-108 [facility] Eosinophil percentageOrdered By: Lorraine Mena on 01-20-2025 Eosinophils/100 WBC (Bld) 0.9 % 0-5 [facility] Erythrocyte distribution wid th ratioOrdered By: Lorraine Mena on 01-20-2025 Erythrocyte distribution width (RBC) [Ratio] 16.6 % High 11.6-14.6 [facility] Erythrocyte distribution wid th standard deviationOrdered By: Lorraine Mena on 01-20-2025 Erythrocyte distribution width (RBC) [Ratio] 54.0 fl High 35.1-43.9 [facility] Glomerular filtration rate ( GFR) estimation/1.73 sq m using serum, plasma, or whole bOrdered By: Lorraine Mena on 01-20-2025 GFR/1.73 sq M.predicted among non-blacks MDRD (S/P/Bld) [Vol rate/Area] 62 mL/min/{1.73_m2} >60 [facility] Hematocrit Auto (Bld) [Volum e fraction]Ordered By: Lorraine Mena on 01-20-2025 Hematocrit (Bld) [Volume fraction] 30.5 % Low 40-54 [facility] Hemoglobin measurementOrdere d By: Ledyroelisathao Christinebandaremi on 01-20-2025 Hemoglobin (Bld) [Mass/Vol] 9.4 g/dL Low 13.0-16.5 [facility] Immature granulocytes/100 WB C Auto (Bld)Ordered By: Lorraine Mena on 01-20-2025 Immature granulocytes/100 WBC (Bld) 0.500 % 0.0-0.9 [facility] LDL calc ser/plasOrdered By: roemiddletownthao Mena on 01-20-2025 Cholesterol in LDL [Mass/Vol] 45 mg/dL [facility] MCV (mean corpuscular volume ) determinationOrdered By: Roselynmiddletownthao Mena on 01-20-2025 MCV (RBC) [Entitic vol] 88.9 fL 80-94 [facility] Mean corpuscular hemoglobin (MCH) determinationOrdered By: Lorraine Mena on 01-20-2025 MCH (RBC) [Entitic mass] 27.4 pg 27.0-32.0 [facility] Monocyte percentageOrdered B y: Ledyroelisathao Christinebandaremi on 01-20-2025 Monocytes/100 WBC (Bld) 8.2 % 0-10 [facility] Neutrophil percentageOrdered By: Lorraine Mena on 01-20-2025 Neutrophils/100 WBC (Bld) 74.9 % High 47-70 [facility] Platelet countOrdered By: Ledy ellethao Mena on 01-20-2025 Platelets (Bld) [#/Vol] 405 10*3/uL 150-450 [facility] Potassium measurement (mass/ volume)Ordered By: Ledyml Mena on 01-20-2025 Potassium (Unsp spec) [Mass/Vol] 3.7 mmol/L 3.3-5.1 [facility] RBC Auto (Bld) [#/Vol]Ordere d By: Roselynlisathao Christinebandaremi on 01-20-2025 RBC (Bld) [#/Vol] 3.43 10*6/uL Low 4.6-6.2 [facility] Serum creatinine measurement (mass/volume)Ordered By: Lorraine Mena on 01-20-2025 Creatinine [Mass/Vol] 1.21 mg/dL High 0.70-1.20 [facility] Serum glucose measurement (m ass/volume)Ordered By: Lorraine Mena on 01-20-2025 Glucose [Mass/Vol] 149 mg/dL High 70-99 [facility] Serum or plasma calcium luis urement (mass/volume)Ordered By: Lorraine Mena on 01-20-2025 Calcium [Mass/Vol] 9.4 mg/dL 7.6-11.0 [facility] Serum or plasma cholesterol in HDL measurement (mass/volume)Ordered By: Lorraine Mena on 01-20-2025 Cholesterol in HDL [Mass/Vol] 75 mg/dL >40 [facility] Serum or plasma cholesterol measurement (mass/volume)Ordered By: Lorraine Mena on 01-20-2025 Cholesterol [Mass/Vol] 136 mg/dL <201 [facility] Serum or plasma urea nitroge n measurement (mass/volume)Ordered By: Lorraine Mena on 01-20-2025 Urea nitrogen [Mass/Vol] 25 mg/dL High 4-19 [facility] Sodium levelOrdered By: Roselyn Mena on 01-20-2025 Sodium [Moles/Vol] 137 mmol/L 133-145 [facility] White blood cell (WBC) count Ordered By: Lorraine Mena on 01-20-2025 WBC (Bld) [#/Vol] 6.5 10*3/uL 4.4-11.0 [facility] Absolute lymphocyte countOrd ered By: oLrraine Mena on 01-13-2025 Lymphocytes Auto (Unsp spec) [#/Vol] 0.97 10*3/uL 0.83-4.51 [facility] Anion gap in Serum or Plasma Ordered By: Lorraine Mena on 01-13-2025 Anion gap [Moles/Vol] 11 mmol/L 5-15 [facility] Automated lymphocyte count a s percentage of total leukocytesOrdered By: Lorraine Mena on 01-13-2025 Lymphocytes/100 WBC Auto (Unsp spec) 16.5 % Low 19-41 [facility] BUN/creatinine ratioOrdered By: Lorraine Mena on 01-13-2025 Urea nitrogen/Creatinine [Mass ratio] 17.7 mg/mg 10-20 [facility] Basophil percentageOrdered B y: Lorraine Mena on 01-13-2025 Basophils/100 WBC (Bld) 0.8 % 0-1 [facility] Calculated very low density lipoprotein (VLDL) cholesterol measurementOrdered By: Lorraine Mena on 01-13-2025 Calculated very low density lipoprotein (VLDL) cholesterol measurement 34 mg/dL 5-40 [facility] Carbon dioxide, total [Moles /volume] in Central venous bloodOrdered By: Lorraine Mena on 01-13-2025 CO2 [Moles/Vol] 27.7 mmol/L 21.0-32.0 [facility] Chloride assayOrdered By: Ledy Mena on 01-13-2025 Chloride [Moles/Vol] 101 mmol/L 98-108 [facility] Eosinophil percentageOrdered By: Lorraine Mena on 01-13-2025 Eosinophils/100 WBC (Bld) 1.0 % 0-5 [facility] Erythrocyte distribution wid th ratioOrdered By: Lorraine Mena on 01-13-2025 Erythrocyte distribution width (RBC) [Ratio] 16.1 % High 11.6-14.6 [facility] Erythrocyte distribution wid th standard deviationOrdered By: Lorraine Mena on 01-13-2025 Erythrocyte distribution width (RBC) [Ratio] 51.1 fl High 35.1-43.9 [facility] Glomerular filtration rate ( GFR) estimation/1.73 sq m using serum, plasma, or whole bOrdered By: Lorraine Mena on 01-13-2025 GFR/1.73 sq M.predicted among non-blacks MDRD (S/P/Bld) [Vol rate/Area] 70 mL/min/{1.73_m2} >60 [facility] Hematocrit Auto (Bld) [Volum e fraction]Ordered By: Lorraine Emmettbandaremi on 01-13-2025 Hematocrit (Bld) [Volume fraction] 31.4 % Low 40-54 [facility] Hemoglobin measurementOrdere d By: Lorraine Mena on 01-13-2025 Hemoglobin (Bld) [Mass/Vol] 9.9 g/dL Low 13.0-16.5 [facility] Immature granulocytes/100 WB C Auto (Bld)Ordered By: Lorraine Mena on 01-13-2025 Immature granulocytes/100 WBC (Bld) 0.500 % 0.0-0.9 [facility] LDL calc ser/plasOrdered By: [facility] Almonteemi on 01-13-2025 Cholesterol in LDL [Mass/Vol] 51 mg/dL [facility] MCV (mean corpuscular volume ) determinationOrdered By: roemiddlet[place]thao Emmettbandaremi on 01-13-2025 MCV (RBC) [Entitic vol] 87.7 fL 80-94 [facility] Mean corpuscular hemoglobin (MCH) determinationOrdered By: Ledyroelorri Mena on 01-13-2025 MCH (RBC) [Entitic mass] 27.7 pg 27.0-32.0 [facility] Monocyte percentageOrdered B y: Lorraine Mena on 01-13-2025 Monocytes/100 WBC (Bld) 6.8 % 0-10 [facility] Neutrophil percentageOrdered By: Lorraine Mena on 01-13-2025 Neutrophils/100 WBC (Bld) 74.4 % High 47-70 [facility] Platelet countOrdered By: Ledy Mena on 01-13-2025 Platelets (Bld) [#/Vol] 421 10*3/uL 150-450 [facility] Potassium measurement (mass/ volume)Ordered By: Lorraine Mena on 01-13-2025 Potassium (Unsp spec) [Mass/Vol] 3.8 mmol/L 3.3-5.1 [facility] RBC Auto (Bld) [#/Vol]Ordere d By: Lorraine Mena on 01-13-2025 RBC (Bld) [#/Vol] 3.58 10*6/uL Low 4.6-6.2 [facility] Serum creatinine measurement (mass/volume)Ordered By: Lorraine Mena on 01-13-2025 Creatinine [Mass/Vol] 1.10 mg/dL 0.70-1.20 [facility] Serum glucose measurement (m ass/volume)Ordered By: Lorraine Mena on 01-13-2025 Glucose [Mass/Vol] 110 mg/dL High 70-99 [facility] Serum or plasma calcium luis urement (mass/volume)Ordered By: Lorraine Mena on 01-13-2025 Calcium [Mass/Vol] 9.2 mg/dL 7.6-11.0 [facility] Serum or plasma cholesterol in HDL measurement (mass/volume)Ordered By: Lorraine Mena on 01-13-2025 Cholesterol in HDL [Mass/Vol] 63 mg/dL >40 [facility] Serum or plasma cholesterol measurement (mass/volume)Ordered By: Lorraine Mena on 01-13-2025 Cholesterol [Mass/Vol] 147 mg/dL <201 [facility] Serum or plasma urea nitroge n measurement (mass/volume)Ordered By: Lorraine Mena on 01-13-2025 Urea nitrogen [Mass/Vol] 20 mg/dL High 4-19 [facility] Sodium levelOrdered By: Roselyn Mena on 01-13-2025 Sodium [Moles/Vol] 140 mmol/L 133-145 [facility] White blood cell (WBC) count Ordered By: Lorraine Mena on 01-13-2025 WBC (Bld) [#/Vol] 5.9 10*3/uL 4.4-11.0 [facility] Electrocardiogram reportOrde red By: Geronimo Downey on 01-07-2025 EKG study [facility] Other Phone: Absolute lymphocyte countOrd ered By: Frankie Galindo on 01-06-2025 Lymphocytes Auto (Unsp spec) [#/Vol] 0.58 10*3/uL Low 0.83-4.51 [facility] Anion gap in Serum or Plasma Ordered By: Frankie Galindo on 01-06-2025 Anion gap [Moles/Vol] 12 mmol/L 5-15 [facility] Automated lymphocyte count a s percentage of total leukocytesOrdered By: Frankie Galindo on 01-06-2025 Lymphocytes/100 WBC Auto (Unsp spec) 4.8 % Low 19-41 [facility] BUN/creatinine ratioOrdered By: Frankie Galindo on 01-06-2025 Urea nitrogen/Creatinine [Mass ratio] 14.2 mg/mg 10-20 [facility] Basophil percentageOrdered B y: Frankie Galindo on 01-06-2025 Basophils/100 WBC (Bld) 0.2 % 0-1 [facility] Carbon dioxide, total [Moles /volume] in Central venous bloodOrdered By: Frankie Galindo on 01-06-2025 CO2 [Moles/Vol] 27.9 mmol/L 21.0-32.0 [facility] Chloride assayOrdered By: Osiel Galindo on 01-06-2025 Chloride [Moles/Vol] 98 mmol/L 98-108 [facility] Eosinophil percentageOrdered By: Frankie Galindo on 01-06-2025 Eosinophils/100 WBC (Bld) 0.1 % 0-5 [facility] Erythrocyte distribution wid th ratioOrdered By: Frankie Galindo on 01-06-2025 Erythrocyte distribution width (RBC) [Ratio] 15.3 % High 11.6-14.6 [facility] Erythrocyte distribution wid th standard deviationOrdered By: Frankie Galindo on 01-06-2025 Erythrocyte distribution width (RBC) [Ratio] 49.7 fl High 35.1-43.9 [facility] Glomerular filtration rate ( GFR) estimation/1.73 sq m using serum, plasma, or whole bOrdered By: Frankie Galindo on 01-06-2025 GFR/1.73 sq M.predicted among non-blacks MDRD (S/P/Bld) [Vol rate/Area] 52 mL/min/{1.73_m2} Low >60 [facility] Hematocrit Auto (Bld) [Volum e fraction]Ordered By: Frankie Galindo on 01-06-2025 Hematocrit (Bld) [Volume fraction] 35.8 % Low 40-54 [facility] Hemoglobin measurementOrdere d By: Frankie Galindo on 01-06-2025 Hemoglobin (Bld) [Mass/Vol] 11.2 g/dL Low 13.0-16.5 [facility] Immature granulocytes/100 WB C Auto (Bld)Ordered By: Frankie Galindo on 01-06-2025 Immature granulocytes/100 WBC (Bld) 0.300 % 0.0-0.9 [facility] MCV (mean corpuscular volume ) determinationOrdered By: Frankie Galindo on 01-06-2025 MCV (RBC) [Entitic vol] 88.8 fL 80-94 [facility] Magnesium measurement (mass/ volume)Ordered By: Frankie Galindo on 01-06-2025 Magnesium (Unsp spec) [Mass/Vol] 2.1 mg/dL 1.5-2.2 [facility] Mean corpuscular hemoglobin (MCH) determinationOrdered By: Frankie Galindo on 01-06-2025 MCH (RBC) [Entitic mass] 27.8 pg 27.0-32.0 [facility] Monocyte percentageOrdered B y: Frankie Galindo on 01-06-2025 Monocytes/100 WBC (Bld) 7.0 % 0-10 [facility] Neutrophil percentageOrdered By: Frankie Galindo on 01-06-2025 Neutrophils/100 WBC (Bld) 87.6 % High 47-70 [facility] Platelet countOrdered By: Osiel Galindo on 01-06-2025 Platelets (Bld) [#/Vol] 385 10*3/uL 150-450 [facility] Potassium measurement (mass/ volume)Ordered By: Frankie Galindo on 01-06-2025 Potassium (Unsp spec) [Mass/Vol] 4.9 mmol/L 3.3-5.1 [facility] RBC Auto (Bld) [#/Vol]Ordere d By: Frankie Galindo on 01-06-2025 RBC (Bld) [#/Vol] 4.03 10*6/uL Low 4.6-6.2 [facility] Serum creatinine measurement (mass/volume)Ordered By: Frankie Galindo on 01-06-2025 Creatinine [Mass/Vol] 1.41 mg/dL High 0.70-1.20 [facility] Serum glucose measurement (m ass/volume)Ordered By: Frankie Galindo on 01-06-2025 Glucose [Mass/Vol] 111 mg/dL High 70-99 [facility] Serum or plasma calcium luis urement (mass/volume)Ordered By: Frankie Galindo on 01-06-2025 Calcium [Mass/Vol] 9.3 mg/dL 7.6-11.0 [facility] Serum or plasma urea nitroge n measurement (mass/volume)Ordered By: Frankie Galindo on 01-06-2025 Urea nitrogen [Mass/Vol] 20 mg/dL High 4-19 [facility] Sodium levelOrdered By: Matthew Galindo on 01-06-2025 Sodium [Moles/Vol] 138 mmol/L 133-145 [facility] Troponin T.cardiac [Mass/vol ume] in Serum or Plasma by High sensitivity methodOrdered By: Frankie Yi on 01-06-2025 Troponin T.cardiac High sensitivity method [Mass/Vol] 26 ng/L High <22 [facility] Troponin T.cardiac High sensitivity method [Mass/Vol] 23 ng/L High <22 [facility] White blood cell (WBC) count Ordered By: Frankie Galindo on 01-06-2025 WBC (Bld) [#/Vol] 12.0 10*3/uL High 4.4-11.0 [facility] Absolute lymphocyte countOrd ered By: Fco Monroy on 01-05-2025 Lymphocytes Auto (Unsp spec) [#/Vol] 1.45 10*3/uL 0.83-4.51 [facility] Anion gap in Serum or Plasma Ordered By: Fco Monroy on 01-05-2025 Anion gap [Moles/Vol] 14 mmol/L 5-15 [facility] Assessment of wrist artery p atency prior to arterial punctureOrdered By: Fco Monroy on 01-05-2025 Arterial patency Wrist artery --pre arterial puncture Positive [facility] Automated lymphocyte count a s percentage of total leukocytesOrdered By: Fco Monroy on 01-05-2025 Lymphocytes/100 WBC Auto (Unsp spec) 14.2 % Low 19-41 [facility] BUN/creatinine ratioOrdered By: Fco Monroy on 01-05-2025 Urea nitrogen/Creatinine [Mass ratio] 18.8 mg/mg 10- [facility] Basophil percentageOrdered B y: Fco Monroy on 01-05-2025 Basophils/100 WBC (Bld) 0.4 % 0-1 [facility] Bilirubin, totalOrdered By: Fco Monroy on 01-05-2025 Bilirubin [Mass/Vol] 0.25 mg/dL 0.00-1.30 [facility] Blood base excess determinat ionOrdered By: Fco Monroy on 01-05-2025 Base excess Calc (BldV) [Moles/Vol] 9 mmol/L High -2-2 [facility] Blood bicarbonate measuremen tOrdered By: Fco Monroy on 01-05-2025 HCO3 (Bld) [Moles/Vol] 33.0 mmol/L High 22-26 [facility] Blood cultureOrdered By: Sebastien Galindo on 01-05-2025 Bacteria identified Cx Nom (Bld) No growth in 5 days. [facility] CBC W/Diff, Automatedon 12-18 Absolute Lymph 1.45 X10 3/uL Normal 0.83-4.51 [facility] Comment on above: Performed By: #### L 100.0100, [id number], [id number] ####[facility] [id number] [place], [address] Absolute Neut 7.8 X10 3/uL High 2.0-7.7 [facility] Comment on above: Performed By: #### L 100.0100, [id number], [id number] ####[facility] [id number] [place], [address] Basophils/100 WBC (Bld) 0.4 % Normal 0-1 [facility] Comment on above: Performed By: #### L 100.0100, [id number], [id number] ####[facility] [id number] [place], [address] Eosinophils/100 WBC (Bld) 1.2 % Normal 0-5 [facility] Comment on above: Performed By: #### L 100.0100, [id number], [id number] ####[facility] [id number] [place], [address] Erythrocyte distribution width (RBC) [Ratio] 15.1 % High 11.6-14.6 [facility] Comment on above: Performed By: #### L 100.0100, [id number], [id number] ####[facility] [place] [address] [place], [address] Hematocrit (Bld) [Volume fraction] 39.6 % Low 40-54 [facility] Comment on above: Performed By: #### L 100.0100, L500.4050, L503.6005 ####[facility] [address] [place], [address] Hemoglobin (Bld) [Mass/Vol] 12.6 g/dL Low 13.0-16.5 [facility] Comment on above: Performed By: #### L 100.0100, L500.4050, L503.6005 ####[facility] [address] [place], [address] IG% 0.500 Normal 0.0-0.9 [facility] Comment on above: Result Comment: IG% - Immature Granulocytes (promyelocytes, myelocytes andmetamyelocytes) > 1% indicates that a LEFT SHIFT is Present. Performed By: #### L 100.0100, L500.4050, L503.6005 ####[facility] [address] [place], [address] Lymphocytes/100 WBC (Bld) 14.2 % Low 19-41 [facility] Comment on above: Performed By: #### L 100.0100, L500.4050, [id number] ####[facility] [address] [place], [address] MCH (RBC) [Entitic mass] 27.8 pg Normal 27.0-32.0 [facility] Comment on above: Performed By: #### L 100.0100, L500.4050, L503.6005 ####[facility] [address] [place], [address] MCHC (RBC) [Mass/Vol] 31.8 g/dL Low 32-36 [facility] Comment on above: Performed By: #### L 100.0100, L500.4050, L503.6005 ####[facility] [address] [place], [address] MCV (RBC) [Entitic vol] 87.4 fL Normal 80-94 [facility] Comment on above: Performed By: #### L 100.0100, L500.4050, L503.6005 ####[facility] [address] [place], [address] Monocytes/100 WBC (Bld) 7.0 % Normal 0-10 [facility] Comment on above: Performed By: #### L 100.0100, L500.4050, [id number] ####[facility] [address] [place], [address] Neutrophils/100 WBC (Bld) 76.7 % High 47-70 [facility] Comment on above: Performed By: #### L 100.0100, L500.4050, L503.6005 ####[facility] [address] [place], [address] Nucleated RBC (Bld) [#/Vol] 0 10*3/uL Normal 0-5 [facility] Comment on above: Performed By: #### L 100.0100, L500.4050, [id number] ####[facility] [address] [place], [address] Platelet mean volume (Bld) [Entitic vol] 9.8 fL Normal 6.2-12.0 [facility] Comment on above: Performed By: #### L 100.0100, L500.4050, [id number] ####[facility] [address] [place], [address] Platelets (Bld) [#/Vol] 462 10*3/uL High 150-450 [facility] Comment on above: Performed By: #### L 100.0100, L500.4050, [id number] ####[facility] [address] [place], [address] RBC (Bld) [#/Vol] 4.53 10*6/uL Low 4.6-6.2 [facility] Comment on above: Performed By: #### L 100.0100, L500.4050, [id number] ####[facility] [address] [place], [address] RDW SD 48.0 fl High 35.1-43.9 [facility] Comment on above: Performed By: #### L 100.0100, L500.4050, L503.6005 ####[facility] [address] [place], [address] WBC (Bld) [#/Vol] 10.2 10*3/uL Normal 4.4-11.0 [facility] Comment on above: Performed By: #### L 100.0100, L500.4050, [id number] ####[facility] [address] [place], [address] Carbon dioxide, total [Moles /volume] in Central venous bloodOrdered By: Fco Monroy on 01-05-2025 CO2 [Moles/Vol] 28.4 mmol/L 21.0-32.0 [facility] Chloride assayOrdered By: Ug o Monroy on 01-05-2025 Chloride [Moles/Vol] 93 mmol/L Low 98-108 [facility] Comprehensive Metabolic Prof ilon 01-05-2025 Albumin [Mass/Vol] 4.6 g/dL Normal 3.4-4.8 [facility] Comment on above: Performed By: #### L 100.0100, L500.4050, [id number] ####[facility] [address] [place], [address] Albumin/Globulin [Mass ratio] 1.4 {ratio} Normal 0.9-2.4 [facility] Comment on above: Performed By: #### L 100.0100, L500.4050, [id number] ####[facility] [address] [place], [address] ALK PHOS 83 U/L Normal 40-129 [facility] Comment on above: Performed By: #### L 100.0100, L500.4050, [id number] ####[facility] [address] [place], [address] ALT [Catalytic activity/Vol] 33 U/L Normal <=46 [facility] Comment on above: Performed By: #### L 100.0100, L500.4050, [id number] ####[facility] [address] [place], [address] AST [Catalytic activity/Vol] 32 U/L Normal <=37 [facility] Comment on above: Result Comment: Hemo lysis present, Results??could be affected.?? Performed By: #### L 100.0100, L500.4050, L503.6005 ####[facility] [address] [place], [address] Bilirubin [Mass/Vol] 0.25 mg/dL Normal 0.00-1.30 [facility] Comment on above: Performed By: #### L 100.0100, L500.4050, [id number] ####[facility] [address] [place], [address] BUN/CRE 18.8 RATIO Normal 10-20 [facility] Comment on above: Performed By: #### L 100.0100, L500.4050, [id number] ####[facility] [address] [place], [address] Calcium [Mass/Vol] 10.3 mg/dL Normal 7.6-11.0 [facility] Comment on above: Performed By: #### L 100.0100, L500.4050, [id number] ####[facility] [address] [place], [address] Chloride [Moles/Vol] 93 mmol/L Low 98-108 [facility] Comment on above: Performed By: #### L 100.0100, L500.4050, [id number] ####[facility] [address] [place], [address] CO2 [Moles/Vol] 28.4 mmol/L Normal 21.0-32.0 [facility] Comment on above: Performed By: #### L 100.0100, L500.4050, L503.6005 ####[facility] [address] [place], [address] Creatinine [Mass/Vol] 1.25 mg/dL High 0.70-1.20 [facility] Comment on above: Performed By: #### L 100.0100, L500.4050, L503.6005 ####[facility] [address] [place], [address] ECRCL 54.46 ml/min Normal 50-250 [facility] Comment on above: Performed By: #### L 100.0100, L500.4050, L503.6005 ####[facility] [address] [place], [address] GAP 14 Normal 5-15 [facility] Comment on above: Performed By: #### L 100.0100, L500.4050, L503.6005 ####[facility] [address] [place], [address] GFR/1.73 sq M.predicted among non-blacks MDRD (S/P/Bld) [Vol rate/Area] 60 mL/min/{1.73_m2} Normal >60 [facility] Comment on above: Result Comment: mL/m in/1.73m2 CKD-EPI Creatinine Equation (2020) Performed By: #### L 100.0100, L500.4050, L503.6005 ####[facility] [address] [place], [address] Globulin (S) [Mass/Vol] 3.2 g/dL Normal 2.2-4.2 [facility] Comment on above: Performed By: #### L 100.0100, L500.4050, L503.6005 ####[facility] [address] [place], [address] Glucose [Mass/Vol] 123 mg/dL High 70-99 [facility] Comment on above: Performed By: #### L 100.0100, L500.4050, L503.6005 ####[facility] [address] [place], [address] Potassium [Moles/Vol] 4.3 mmol/L Normal 3.3-5.1 [facility] Comment on above: Result Comment: Hemo lysis present, Results??could be affected.?? Performed By: #### L 100.0100, L500.4050, L503.6005 ####[facility] [address] [place], [address] Sodium [Moles/Vol] 135 mmol/L Normal 133-145 [facility] Comment on above: Performed By: #### L 100.0100, L500.4050, L503.6005 ####[facility] [address] [place], [address] T PROT 7.8 g/dL Normal 5.9-8.4 [facility] Comment on above: Performed By: #### L 100.0100, L500.4050, L503.6005 ####[facility] [address] [place], [address] Urea nitrogen [Mass/Vol] 24 mg/dL High 4-19 [facility] Comment on above: Performed By: #### L 100.0100, L500.4050, L503.6005 ####[facility] [address] [place], [address] Eosinophil percentageOrdered By: Fco Monroy on 01-05-2025 Eosinophils/100 WBC (Bld) 1.2 % 0-5 [facility] Erythrocyte distribution wid th ratioOrdered By: Fco Monroy on 01-05-2025 Erythrocyte distribution width (RBC) [Ratio] 15.1 % High 11.6-14.6 [facility] Erythrocyte distribution wid th standard deviationOrdered By: Fco Monroy on 01-05-2025 Erythrocyte distribution width (RBC) [Ratio] 48.0 fl High 35.1-43.9 [facility] Glomerular filtration rate ( GFR) estimation/1.73 sq m using serum, plasma, or whole bOrdered By: Fco Monroy on 01-05-2025 GFR/1.73 sq M.predicted among non-blacks MDRD (S/P/Bld) [Vol rate/Area] 60 mL/min/{1.73_m2} >60 [facility] Gram stainOrdered By: Frankie Galindo on 01-05-2025 Microscopic observation Gram stain Nom (Unsp spec) [facility] Hematocrit Auto (Bld) [Volum e fraction]Ordered By: Fco Monroy on 01-05-2025 Hematocrit (Bld) [Volume fraction] 39.6 % Low 40-54 [facility] Hemoglobin measurementOrdere d By: Fco Monroy on 01-05-2025 Hemoglobin (Bld) [Mass/Vol] 12.6 g/dL Low 13.0-16.5 [facility] Immature granulocytes/100 WB C Auto (Bld)Ordered By: Fco Monroy on 01-05-2025 Immature granulocytes/100 WBC (Bld) 0.500 % 0.0-0.9 [facility] Lactic Acidon 01-05-2025 Lactate [Moles/Vol] 1.1 mmol/L Normal 0.0-2.0 [facility] Comment on above: Order Comment: Y Performed By: #### L 100.0100, L500.4050, L503.6005 ####[facility] [address] [place], [place], [address] MCV (mean corpuscular volume ) determinationOrdered By: Fco Monroy on 01-05-2025 MCV (RBC) [Entitic vol] 87.4 fL 80-94 [facility] Mean corpuscular hemoglobin (MCH) determinationOrdered By: Fco Monroy on 01-05-2025 MCH (RBC) [Entitic mass] 27.8 pg 27.0-32.0 [facility] Measurement, pHOrdered By: Tahira Monroy on 01-05-2025 pH (Unsp spec) 7.45 [pH] 7.35-7.45 [facility] Microbial respiratory cultur eOrdered By: Frankie Galindo on 01-05-2025 Microorganism identified Cx Nom (Unsp spec) Proteus mirabilis Abnormal [facility] Monocyte percentageOrdered B y: Fco Monroy on 01-05-2025 Monocytes/100 WBC (Bld) 7.0 % 0-10 [facility] Neutrophil percentageOrdered By: Fco Monroy on 01-05-2025 Neutrophils/100 WBC (Bld) 76.7 % High 47-70 [facility] No Panel InformationOrdered By: Fco Monroy on 01-05-2025 ART [facility] L Radial [facility] Not entered [facility] Cannula [facility] 32 U/L <38 [facility] Platelet countOrdered By: Kellen Monroy on 01-05-2025 Platelets (Bld) [#/Vol] 462 10*3/uL High 150-450 [facility] Potassium measurement (mass/ volume)Ordered By: Fco Monroy on 01-05-2025 Potassium (Unsp spec) [Mass/Vol] 4.3 mmol/L 3.3-5.1 [facility] RBC Auto (Bld) [#/Vol]Ordere d By: Fco Monroy on 01-05-2025 RBC (Bld) [#/Vol] 4.53 10*6/uL Low 4.6-6.2 [facility] Respiratory pathogens detect ion panel by molecular detection methodOrdered By: Frankie Galindo on 01-05-2025 Respiratory pathogens DNA and RNA panel ALEENA+probe (Resp) [facility] Rwef-fve-0Johdoao By: Frankie Galindo on 01-05-2025 SARS-CoV-2 (COVID-19) RNA ALEENA+probe Ql (Unsp spec) [facility] Serum creatinine measurement (mass/volume)Ordered By: Fco Monroy on 01-05-2025 Creatinine [Mass/Vol] 1.25 mg/dL High 0.70-1.20 [facility] Serum globulin measurementOr dered By: Fco Monroy on 01-05-2025 Globulin (S) [Mass/Vol] 3.2 g/dL 2.2-4.2 [facility] Serum glucose measurement (m ass/volume)Ordered By: Fco Monroy on 01-05-2025 Glucose [Mass/Vol] 123 mg/dL High 70-99 [facility] Serum or plasma alanine saul otransferase (ALT) measurementOrdered By: Fco Monroy on 01-05-2025 ALT [Catalytic activity/Vol] 33 U/L <47 [facility] Serum or plasma albumin luis urement (mass/volume)Ordered By: Fco Monroy on 01-05-2025 Albumin [Mass/Vol] 4.6 g/dL 3.4-4.8 [facility] Serum or plasma albumin/glob ulin mass ratioOrdered By: Fco Monroy on 01-05-2025 Albumin/Globulin [Mass ratio] 1.4 {ratio} 0.9-2.4 [facility] Serum or plasma alkaline kathleen sphatase measurementOrdered By: Fco Monroy on 01-05-2025 ALP [Catalytic activity/Vol] 83 U/L 40-129 [facility] Serum or plasma calcium luis urement (mass/volume)Ordered By: Fco Monroy on 01-05-2025 Calcium [Mass/Vol] 10.3 mg/dL 7.6-11.0 [facility] Serum or plasma urea nitroge n measurement (mass/volume)Ordered By: Fco Monroy on 01-05-2025 Urea nitrogen [Mass/Vol] 24 mg/dL High 4-19 [facility] Sodium levelOrdered By: Fco Monroy on 01-05-2025 Sodium [Moles/Vol] 135 mmol/L 133-145 [facility] Total carbon dioxide measure mentOrdered By: Fco Monroy on 01-05-2025 CO2 [Moles/Vol] 35 mmol/L [facility] Total proteinOrdered By: Fco Monroy on 01-05-2025 Protein [Mass/Vol] 7.8 g/dL 5.9-8.4 [facility] Troponin T.cardiac [Mass/vol ume] in Serum or Plasma by High sensitivity methodOrdered By: Frankie Yi on 01-05-2025 Troponin T.cardiac High sensitivity method [Mass/Vol] 22 ng/L <22 [facility] Urine Legionella pneumophila antigen detectionOrdered By: Frankie Galindo on 01-05-2025 L. pneumophila Ag Ql (U) [facility] White blood cell (WBC) count Ordered By: Fco Monroy on 01-05-2025 WBC (Bld) [#/Vol] 10.2 10*3/uL 4.4-11.0 [facility] Abdomen Single View (Portabl e)on 01-03-2025 Abdomen Single View (Portable) Normal [facility] Brain/Head without Contrasto n 01-03-2025 Brain/Head without Contrast Normal [facility] Emergency Department Summary on 01-03-2025 Emergency Department Summary Normal [facility] Pelvis 1 or 2 Viewson 2024 Pelvis 1 or 2 Views Normal [facility] Spine Cervical without Contr ason 01-03-2025 Spine Cervical without Contras Normal [facility] Anion gap in Serum or Plasma Ordered By: Lorraine Mena on 12-31-2024 Anion gap [Moles/Vol] 12 mmol/L 5-15 [facility] BUN/creatinine ratioOrdered By: Lorraine Mena on 12-31-2024 Urea nitrogen/Creatinine [Mass ratio] 21.5 mg/mg High 10-20 [facility] Bilirubin, totalOrdered By: Lorraine Mena on 12-31-2024 Bilirubin [Mass/Vol] 0.17 mg/dL 0.00-1.30 [facility] Carbon dioxide, total [Moles /volume] in Central venous bloodOrdered By: Lorraine Mena on 12-31-2024 CO2 [Moles/Vol] 30.5 mmol/L 21.0-32.0 [facility] Chloride assayOrdered By: Ledy Mena on 12-31-2024 Chloride [Moles/Vol] 95 mmol/L Low 98-108 [facility] Glomerular filtration rate ( GFR) estimation/1.73 sq m using serum, plasma, or whole bOrdered By: Lorraine Mena on 12-31-2024 GFR/1.73 sq M.predicted among non-blacks MDRD (S/P/Bld) [Vol rate/Area] 64 mL/min/{1.73_m2} >60 [facility] No Panel InformationOrdered By: Lorraine Mena on 12-31-2024 34 U/L <38 [facility] Potassium measurement (mass/ volume)Ordered By: Lorraine Mena on 12-31-2024 Potassium (Unsp spec) [Mass/Vol] 3.9 mmol/L 3.3-5.1 [facility] Serum creatinine measurement (mass/volume)Ordered By: Lorraine Mena on 12-31-2024 Creatinine [Mass/Vol] 1.19 mg/dL 0.70-1.20 [facility] Serum globulin measurementOr dered By: Lorraine Mena on 12-31-2024 Globulin (S) [Mass/Vol] 2.9 g/dL 2.2-4.2 [facility] Serum glucose measurement (m ass/volume)Ordered By: Lorraine Mena on 12-31-2024 Glucose [Mass/Vol] 110 mg/dL High 70-99 [facility] Serum or plasma alanine saul otransferase (ALT) measurementOrdered By: Lorraine Mean on 12-31-2024 ALT [Catalytic activity/Vol] 35 U/L <47 [facility] Serum or plasma albumin luis urement (mass/volume)Ordered By: Lorraine Mena on 12-31-2024 Albumin [Mass/Vol] 3.9 g/dL 3.4-4.8 [facility] Serum or plasma albumin/glob ulin mass ratioOrdered By: Lorraine Mena on 12-31-2024 Albumin/Globulin [Mass ratio] 1.3 {ratio} 0.9-2.4 [facility] Serum or plasma alkaline kathleen sphatase measurementOrdered By: Lorraine Mena 12-31-2024 ALP [Catalytic activity/Vol] 63 U/L 40-129 [facility] Serum or plasma calcium luis urement (mass/volume)Ordered By: Lorraine Mena on 12-31-2024 Calcium [Mass/Vol] 10.1 mg/dL 7.6-11.0 [facility] Serum or plasma urea nitroge n measurement (mass/volume)Ordered By: Lorraine Mena on 12-31-2024 Urea nitrogen [Mass/Vol] 26 mg/dL High 4-19 [facility] Sodium levelOrdered By: Roselyn Mena on 12-31-2024 Sodium [Moles/Vol] 138 mmol/L 133-145 [facility] Total proteinOrdered By: David Mena on 12-31-2024 Protein [Mass/Vol] 6.9 g/dL 5.9-8.4 [facility] Absolute lymphocyte countOrd ered By: Lorraine Mena on 12-30-2024 Lymphocytes Auto (Unsp spec) [#/Vol] 1.08 10*3/uL 0.83-4.51 [facility] Anion gap in Serum or Plasma Ordered By: Lorraine Mena on 12-30-2024 Anion gap [Moles/Vol] 17 mmol/L High 5-15 [facility] Automated lymphocyte count a s percentage of total leukocytesOrdered By: Lorraine Mena on 12-30-2024 Lymphocytes/100 WBC Auto (Unsp spec) 14.4 % Low 19-41 [facility] BUN/creatinine ratioOrdered By: Lorraine Mena on 12-30-2024 Urea nitrogen/Creatinine [Mass ratio] 20.3 mg/mg High 10-20 [facility] Basophil percentageOrdered B y: Lorraine Mena on 12-30-2024 Basophils/100 WBC (Bld) 0.7 % 0-1 [facility] Bilirubin, totalOrdered By: Lorraine Mena on 12-30-2024 Bilirubin [Mass/Vol] 0.18 mg/dL 0.00-1.30 [facility] Carbon dioxide, total [Moles /volume] in Central venous bloodOrdered By: Lorraine Mena on 12-30-2024 CO2 [Moles/Vol] 28.7 mmol/L 21.0-32.0 [facility] Chloride assayOrdered By: Ledy roelorri Mena on 12-30-2024 Chloride [Moles/Vol] 94 mmol/L Low 98-108 [facility] Eosinophil percentageOrdered By: Lorraine Christinebandaremi on 12-30-2024 Eosinophils/100 WBC (Bld) 0.8 % 0-5 [facility] Erythrocyte distribution wid th ratioOrdered By: Lorraine Mena on 12-30-2024 Erythrocyte distribution width (RBC) [Ratio] 15.0 % High 11.6-14.6 [facility] Erythrocyte distribution wid th standard deviationOrdered By: Lorraine Mena on 12-30-2024 Erythrocyte distribution width (RBC) [Ratio] 47.7 fl High 35.1-43.9 [facility] Glomerular filtration rate ( GFR) estimation/1.73 sq m using serum, plasma, or whole bOrdered By: Lorraine Mena on 12-30-2024 GFR/1.73 sq M.predicted among non-blacks MDRD (S/P/Bld) [Vol rate/Area] 64 mL/min/{1.73_m2} >60 [facility] Hematocrit Auto (Bld) [Volum e fraction]Ordered By: Lorraine Mena on 12-30-2024 Hematocrit (Bld) [Volume fraction] 36.1 % Low 40-54 [facility] Hemoglobin measurementOrdere d By: Lorraine Mena on 12-30-2024 Hemoglobin (Bld) [Mass/Vol] 11.3 g/dL Low 13.0-16.5 [facility] Immature granulocytes/100 WB C Auto (Bld)Ordered By: Lorraine Mena on 12-30-2024 Immature granulocytes/100 WBC (Bld) 0.300 % 0.0-0.9 [facility] MCV (mean corpuscular volume ) determinationOrdered By: Lorraine Mena on 12-30-2024 MCV (RBC) [Entitic vol] 88.3 fL 80-94 [facility] Mean corpuscular hemoglobin (MCH) determinationOrdered By: Lorraine Mena on 12-30-2024 MCH (RBC) [Entitic mass] 27.6 pg 27.0-32.0 [facility] Monocyte percentageOrdered B y: Lorraine Mena on 12-30-2024 Monocytes/100 WBC (Bld) 9.6 % 0-10 [facility] Neutrophil percentageOrdered By: Lorraine Mena on 12-30-2024 Neutrophils/100 WBC (Bld) 74.2 % High 47-70 [facility] No Panel InformationOrdered By: Lorraine Mena on 12-30-2024 34 U/L <38 [facility] Platelet countOrdered By: Ledy Mena on 12-30-2024 Platelets (Bld) [#/Vol] 353 10*3/uL 150-450 [facility] Potassium measurement (mass/ volume)Ordered By: Lorraine Mena on 12-30-2024 Potassium (Unsp spec) [Mass/Vol] 4.2 mmol/L 3.3-5.1 [facility] RBC Auto (Bld) [#/Vol]Ordere d By: Lorriane Mena on 12-30-2024 RBC (Bld) [#/Vol] 4.09 10*6/uL Low 4.6-6.2 [facility] Serum creatinine measurement (mass/volume)Ordered By: Lorraine Mena on 12-30-2024 Creatinine [Mass/Vol] 1.19 mg/dL 0.70-1.20 [facility] Serum globulin measurementOr dered By: Lorraine Mena on 12-30-2024 Globulin (S) [Mass/Vol] 2.2 g/dL 2.2-4.2 [facility] Serum glucose measurement (m ass/volume)Ordered By: Lorraine Mena on 12-30-2024 Glucose [Mass/Vol] 105 mg/dL High 70-99 [facility] Serum or plasma alanine saul otransferase (ALT) measurementOrdered By: Lorraine Mena on 12-30-2024 ALT [Catalytic activity/Vol] 34 U/L <47 [facility] Serum or plasma albumin luis urement (mass/volume)Ordered By: Lorraine Mena on 12-30-2024 Albumin [Mass/Vol] 4.0 g/dL 3.4-4.8 [facility] Serum or plasma albumin/glob ulin mass ratioOrdered By: Lorraine Mena on 12-30-2024 Albumin/Globulin [Mass ratio] 1.8 {ratio} 0.9-2.4 [facility] Serum or plasma alkaline kathleen sphatase measurementOrdered By: Lorraine Mena on 12-30-2024 ALP [Catalytic activity/Vol] 62 U/L 40-129 [facility] Serum or plasma calcium luis urement (mass/volume)Ordered By: Lorraine Mena on 12-30-2024 Calcium [Mass/Vol] 9.8 mg/dL 7.6-11.0 [facility] Serum or plasma carbamazepin e level (mass/volume)Ordered By: Lorraine Mena on 12-30-2024 carBAMazepine [Mass/Vol] 10.8 ug/mL 4.0-12.0 [facility] Serum or plasma urea nitroge n measurement (mass/volume)Ordered By: Lorraine Mena on 12-30-2024 Urea nitrogen [Mass/Vol] 24 mg/dL High 4-19 [facility] Sodium levelOrdered By: Roselyn Mena on 12-30-2024 Sodium [Moles/Vol] 140 mmol/L 133-145 [facility] Total proteinOrdered By: David Mena on 12-30-2024 Protein [Mass/Vol] 6.3 g/dL 5.9-8.4 [facility] White blood cell (WBC) count Ordered By: Lorraine Mena on 12-30-2024 WBC (Bld) [#/Vol] 7.5 10*3/uL 4.4-11.0 [facility] Absolute lymphocyte countOrd ered By: Shilpa Contreras on 12-26-2024 Lymphocytes Auto (Unsp spec) [#/Vol] 0.66 10*3/uL Low 0.83-4.51 [facility] Anion gap in Serum or Plasma Ordered By: Shilpa Contreras on 12-26-2024 Anion gap [Moles/Vol] 12 mmol/L 5-15 [facility] Automated lymphocyte count a s percentage of total leukocytesOrdered By: Shilpa Ben on 12-26-2024 Lymphocytes/100 WBC Auto (Unsp spec) 6.5 % Low 19-41 [facility] BUN/creatinine ratioOrdered By: Shilpa Ben on 12-26-2024 Urea nitrogen/Creatinine [Mass ratio] 14.4 mg/mg 10-20 [facility] Basophil percentageOrdered B y: Shilpa Ben on 12-26-2024 Basophils/100 WBC (Bld) 0.3 % 0- [facility] Bilirubin, totalOrdered By: Shilpa Ben on 12-26-2024 Bilirubin [Mass/Vol] 0.23 mg/dL 0.00-1.30 [facility] CBC W/Diff, Automatedon 12-17 Absolute Lymph 0.66 X10 3/uL Low 0.83-4.51 [facility] Comment on above: Performed By: #### L 500.4050, L100.0100 ####[facility] [address] [place], [address] Absolute Neut 8.7 X10 3/uL High 2.0-7.7 [facility] Comment on above: Performed By: #### L 500.4050, L100.0100 ####[facility] [address] [place], [address] Basophils/100 WBC (Bld) 0.3 % Normal 0-1 [facility] Comment on above: Performed By: #### L 500.4050, L100.0100 ####[facility] [address] [place], [address] Eosinophils/100 WBC (Bld) 0.2 % Normal 0-5 [facility] Comment on above: Performed By: #### L 500.4050, L100.0100 ####[facility] [address] [place], [address] Erythrocyte distribution width (RBC) [Ratio] 14.7 % High 11.6-14.6 [facility] Comment on above: Performed By: #### L 500.4050, L100.0100 ####[facility] [address] [place], [address] Hematocrit (Bld) [Volume fraction] 35.8 % Low 40-54 [facility] Comment on above: Performed By: #### L 500.4050, L100.0100 ####[facility] [address] [place], [address] Hemoglobin (Bld) [Mass/Vol] 11.3 g/dL Low 13.0-16.5 [facility] Comment on above: Performed By: #### L 500.4050, L100.0100 ####[facility] [address] [place], [address] IG% 0.500 Normal 0.0-0.9 [facility] Comment on above: Result Comment: IG% - Immature Granulocytes (promyelocytes, myelocytes andmetamyelocytes) > 1% indicates that a LEFT SHIFT is Present. Performed By: #### L 500.4050, L100.0100 ####[facility] [address] [place], [address] Lymphocytes/100 WBC (Bld) 6.5 % Low 19-41 [facility] Comment on above: Performed By: #### L 500.4050, L100.0100 ####[facility] [address] [place], [address] MCH (RBC) [Entitic mass] 27.6 pg Normal 27.0-32.0 [facility] Comment on above: Performed By: #### L 500.4050, L100.0100 ####[facility] [address] [place], [address] MCHC (RBC) [Mass/Vol] 31.6 g/dL Low 32-36 [facility] Comment on above: Performed By: #### L 500.4050, L100.0100 ####[facility] [address] [place], [address] MCV (RBC) [Entitic vol] 87.3 fL Normal 80-94 [facility] Comment on above: Performed By: #### L 500.4050, L100.0100 ####[facility] [address] [place], [address] Monocytes/100 WBC (Bld) 7.8 % Normal 0-10 [facility] Comment on above: Performed By: #### L 500.4050, L100.0100 ####[facility] [address] [place], [address] Neutrophils/100 WBC (Bld) 84.7 % High 47-70 [facility] Comment on above: Performed By: #### L 500.4050, L100.0100 ####[facility] [address] [place], [address] Nucleated RBC (Bld) [#/Vol] 0 10*3/uL Normal 0-5 [facility] Comment on above: Performed By: #### L 500.4050, L100.0100 ####[facility] [address] [place], [address] Platelet mean volume (Bld) [Entitic vol] 10.1 fL Normal 6.2-12.0 [facility] Comment on above: Performed By: #### L 500.4050, L100.0100 ####[facility] [address] [place], [address] Platelets (Bld) [#/Vol] 363 10*3/uL Normal 150-450 [facility] Comment on above: Performed By: #### L 500.4050, L100.0100 ####[facility] [address] [place], [address] RBC (Bld) [#/Vol] 4.10 10*6/uL Low 4.6-6.2 [facility] Comment on above: Performed By: #### L 500.4050, L100.0100 ####[facility] [address] [place], [address] RDW SD 46.5 fl High 35.1-43.9 [facility] Comment on above: Performed By: #### L 500.4050, L100.0100 ####[facility] [address] [place], [address] WBC (Bld) [#/Vol] 10.2 10*3/uL Normal 4.4-11.0 [facility] Comment on above: Performed By: #### L 500.4050, L100.0100 ####[facility] [address] [place], [address] Carbon dioxide, total [Moles /volume] in Central venous bloodOrdered By: Shilpa Ben on 12-26-2024 CO2 [Moles/Vol] 30.3 mmol/L 21.0-32.0 [facility] Chloride assayOrdered By: Kisha solares Ben on 12-26-2024 Chloride [Moles/Vol] 98 mmol/L 98-108 [facility] Comprehensive Metabolic Prof ilon 12-26-2024 Albumin [Mass/Vol] 3.7 g/dL Normal 3.4-4.8 [facility] Comment on above: Performed By: #### L 500.4050, L100.0100 ####[facility] [address] [place], [address] Albumin/Globulin [Mass ratio] 1.6 {ratio} Normal 0.9-2.4 [facility] Comment on above: Performed By: #### L 500.4050, L100.0100 ####[facility] [address] [place], [address] ALK PHOS 67 U/L Normal 40-129 [facility] Comment on above: Performed By: #### L 500.4050, L100.0100 ####[facility] [address] [place], [address] ALT [Catalytic activity/Vol] 19 U/L Normal <=46 [facility] Comment on above: Performed By: #### L 500.4050, L100.0100 ####[facility] [address] [place], [address] AST [Catalytic activity/Vol] 22 U/L Normal <=37 [facility] Comment on above: Performed By: #### L 500.4050, L100.0100 ####[facility] [address] [place], [address] Bilirubin [Mass/Vol] 0.23 mg/dL Normal 0.00-1.30 [facility] Comment on above: Performed By: #### L 500.4050, L100.0100 ####[facility] [address] [place], [address] BUN/CRE 14.4 RATIO Normal 10-20 [facility] Comment on above: Performed By: #### L 500.4050, L100.0100 ####[facility] [address] [place], [address] Calcium [Mass/Vol] 9.7 mg/dL Normal 7.6-11.0 [facility] Comment on above: Performed By: #### L 500.4050, L100.0100 ####[facility] [address] [place], [address] Chloride [Moles/Vol] 98 mmol/L Normal 98-108 [facility] Comment on above: Performed By: #### L 500.4050, L100.0100 ####[facility] [address] [place], [address] CO2 [Moles/Vol] 30.3 mmol/L Normal 21.0-32.0 [facility] Comment on above: Performed By: #### L 500.4050, L100.0100 ####[facility] [address] [place], [address] Creatinine [Mass/Vol] 1.07 mg/dL Normal 0.70-1.20 [facility] Comment on above: Performed By: #### L 500.4050, L100.0100 ####[facility] [address] [place], [address] ECRCL 57.71 ml/min Normal 50-250 [facility] Comment on above: Performed By: #### L 500.4050, L100.0100 ####[facility] [address] [place], [address] GAP 12 Normal 5-15 [facility] Comment on above: Performed By: #### L 500.4050, L100.0100 ####[facility] [address] [place], [address] GFR/1.73 sq M.predicted among non-blacks MDRD (S/P/Bld) [Vol rate/Area] 72 mL/min/{1.73_m2} Normal >60 [facility] Comment on above: Result Comment: mL/m in/1.73m2 CKD-EPI Creatinine Equation (2020) Performed By: #### L 500.4050, L100.0100 ####[facility] [address] [place], [address] Globulin (S) [Mass/Vol] 2.3 g/dL Normal 2.2-4.2 [facility] Comment on above: Performed By: #### L 500.4050, L100.0100 ####[facility] [address] [place], [address] Glucose [Mass/Vol] 142 mg/dL High 70-99 [facility] Comment on above: Performed By: #### L 500.4050, L100.0100 ####[facility] [address] [place], [address] Potassium [Moles/Vol] 3.4 mmol/L Normal 3.3-5.1 [facility] Comment on above: Performed By: #### L 500.4050, L100.0100 ####[facility] [address] [place], [address] Sodium [Moles/Vol] 140 mmol/L Normal 133-145 [facility] Comment on above: Performed By: #### L 500.4050, L100.0100 ####[facility] [address] [place], [address] T PROT 6.0 g/dL Normal 5.9-8.4 [facility] Comment on above: Performed By: #### L 500.4050, L100.0100 ####[facility] [address] [place], [place], [address] Urea nitrogen [Mass/Vol] 15 mg/dL Normal 4-19 [facility] Comment on above: Performed By: #### L 500.4050, L100.0100 ####[facility] [address] [place], [place], [address] Eosinophil percentageOrdered By: Shilpa Contreras on 12-26-2024 Eosinophils/100 WBC (Bld) 0.2 % 0-5 [facility] Erythrocyte distribution wid th ratioOrdered By: Ben on 12-26-2024 Erythrocyte distribution width (RBC) [Ratio] 14.7 % High 11.6-14.6 [facility] Erythrocyte distribution wid th standard deviationOrdered By: Shilpa Ben on 12-26-2024 Erythrocyte distribution width (RBC) [Ratio] 46.5 fl High 35.1-43.9 [facility] Glomerular filtration rate ( GFR) estimation/1.73 sq m using serum, plasma, or whole bOrdered By: Shilpa Ben on 12-26-2024 GFR/1.73 sq M.predicted among non-blacks MDRD (S/P/Bld) [Vol rate/Area] 72 mL/min/{1.73_m2} >60 [facility] Hematocrit Auto (Bld) [Volum e fraction]Ordered By: Shilpa Contreras 12-26-2024 Hematocrit (Bld) [Volume fraction] 35.8 % Low 40-54 [facility] Hemoglobin measurementOrdere d By: Shilpa Contreras on 12-26-2024 Hemoglobin (Bld) [Mass/Vol] 11.3 g/dL Low 13.0-16.5 [facility] Immature granulocytes/100 WB C Auto (Bld)Ordered By: Shilpa Ben 12-26-2024 Immature granulocytes/100 WBC (Bld) 0.500 % 0.0-0.9 [facility] MCV (mean corpuscular volume ) determinationOrdered By: Shilpa Contreras 12-26-2024 MCV (RBC) [Entitic vol] 87.3 fL 80-94 [facility] Mean corpuscular hemoglobin (MCH) determinationOrdered By: Shilpa Contreras on 12-26-2024 MCH (RBC) [Entitic mass] 27.6 pg 27.0-32.0 [facility] Monocyte percentageOrdered B y: Shilpa Contreras on 12-26-2024 Monocytes/100 WBC (Bld) 7.8 % 0-10 [facility] Neutrophil percentageOrdered By: Shilpa Ben on 12-26-2024 Neutrophils/100 WBC (Bld) 84.7 % High 47-70 [facility] No Panel InformationOrdered By: Shilpa Contreras on 12-26-2024 22 U/L <38 [facility] Platelet countOrdered By: Kisha solares Ben on 12-26-2024 Platelets (Bld) [#/Vol] 363 10*3/uL 150-450 [facility] Potassium measurement (mass/ volume)Ordered By: Shilpa Contreras on 12-26-2024 Potassium (Unsp spec) [Mass/Vol] 3.4 mmol/L 3.3-5.1 [facility] RBC Auto (Bld) [#/Vol]Ordere d By: Shilpa Contreras on 12-26-2024 RBC (Bld) [#/Vol] 4.10 10*6/uL Low 4.6-6.2 [facility] Serum creatinine measurement (mass/volume)Ordered By: Shilpa Contreras on 12-26-2024 Creatinine [Mass/Vol] 1.07 mg/dL 0.70-1.20 [facility] Serum globulin measurementOr dered By: Shilpa Contreras 12-26-2024 Globulin (S) [Mass/Vol] 2.3 g/dL 2.2-4.2 [facility] Serum glucose measurement (m ass/volume)Ordered By: Shilpa Contreras 12-26-2024 Glucose [Mass/Vol] 142 mg/dL High 70-99 [facility] Serum or plasma alanine saul otransferase (ALT) measurementOrdered By: Shilpa Contreras 12-26-2024 ALT [Catalytic activity/Vol] 19 U/L <47 [facility] Serum or plasma albumin luis urement (mass/volume)Ordered By: Shilpa Contreras on 12-26-2024 Albumin [Mass/Vol] 3.7 g/dL 3.4-4.8 [facility] Serum or plasma albumin/glob ulin mass ratioOrdered By: Shilpa Contreras on 12-26-2024 Albumin/Globulin [Mass ratio] 1.6 {ratio} 0.9-2.4 [facility] Serum or plasma alkaline kathleen sphatase measurementOrdered By: Shilpa Ben on 12-26-2024 ALP [Catalytic activity/Vol] 67 U/L 40-129 [facility] Serum or plasma calcium luis urement (mass/volume)Ordered By: Shilpa Contreras on 12-26-2024 Calcium [Mass/Vol] 9.7 mg/dL 7.6-11.0 [facility] Serum or plasma urea nitroge n measurement (mass/volume)Ordered By: Shilpa Contreras on 12-26-2024 Urea nitrogen [Mass/Vol] 15 mg/dL 4-19 [facility] Sodium levelOrdered By: Rovertou mn Ben on 12-26-2024 Sodium [Moles/Vol] 140 mmol/L 133-145 [facility] Total proteinOrdered By: Roverto umn Ben on 12-26-2024 Protein [Mass/Vol] 6.0 g/dL 5.9-8.4 [facility] White blood cell (WBC) count Ordered By: Shilpa Contreras on 12-26-2024 WBC (Bld) [#/Vol] 10.2 10*3/uL 4.4-11.0 [facility] CBC W/Diff, Automatedon 07-0 Absolute Lymph 0.96 X10 3/uL Normal 0.83-4.51 [facility] Comment on above: Performed By: #### L 501.5200, L100.0100, L500.4050 ####[facility] [address] [place], [address] Absolute Neut 9.8 X10 3/uL High 2.0-7.7 [facility] Comment on above: Performed By: #### L 501.5200, L100.0100, L500.4050 ####[facility] [address] [place], [address] Basophils/100 WBC (Bld) 0.3 % Normal 0-1 [facility] Comment on above: Performed By: #### L 501.5200, L100.0100, L500.4050 ####[facility] [address] [place], [address] Eosinophils/100 WBC (Bld) 0.3 % Normal 0-5 [facility] Comment on above: Performed By: #### L 501.5200, L100.0100, L500.4050 ####[facility] [address] [place], [address] Erythrocyte distribution width (RBC) [Ratio] 14.5 % Normal 11.6-14.6 [facility] Comment on above: Performed By: #### L 501.5200, L100.0100, L500.4050 ####[facility] [address] [place], [address] Hematocrit (Bld) [Volume fraction] 40.5 % Normal 40-54 [facility] Comment on above: Performed By: #### L 501.5200, L100.0100, L500.4050 ####[facility] [address] [place], [address] Hemoglobin (Bld) [Mass/Vol] 12.5 g/dL Low 13.0-16.5 [facility] Comment on above: Performed By: #### L 501.5200, L100.0100, L500.4050 ####[facility] [address] [place], [address] IG% 0.700 Normal 0.0-0.9 [facility] Comment on above: Result Comment: IG% - Immature Granulocytes (promyelocytes, myelocytes andmetamyelocytes) > 1% indicates that a LEFT SHIFT is Present. Performed By: #### L 501.5200, L100.0100, L500.4050 ####[facility] [address] [place], [address] Lymphocytes/100 WBC (Bld) 8.0 % Low 19-41 [facility] Comment on above: Performed By: #### L 501.5200, L100.0100, L500.4050 ####[facility] [address] [place], [address] MCH (RBC) [Entitic mass] 27.4 pg Normal 27.0-32.0 [facility] Comment on above: Performed By: #### L 501.5200, L100.0100, L500.4050 ####[facility] [address] [place], [address] MCHC (RBC) [Mass/Vol] 30.9 g/dL Low 32-36 [facility] Comment on above: Performed By: #### L 501.5200, L100.0100, L500.4050 ####[facility] [address] [place], [address] MCV (RBC) [Entitic vol] 88.6 fL Normal 80-94 [facility] Comment on above: Performed By: #### L 501.5200, L100.0100, L500.4050 ####[facility] [address] [place], [address] Monocytes/100 WBC (Bld) 8.4 % Normal 0-10 [facility] Comment on above: Performed By: #### L 501.5200, L100.0100, L500.4050 ####[facility] [address] [place], [address] Neutrophils/100 WBC (Bld) 82.3 % High 47-70 [facility] Comment on above: Performed By: #### L 501.5200, L100.0100, L500.4050 ####[facility] [address] [place], [address] Nucleated RBC (Bld) [#/Vol] 0 10*3/uL Normal 0-5 [facility] Comment on above: Performed By: #### L 501.5200, L100.0100, L500.4050 ####[facility] [address] [place], [address] Platelet mean volume (Bld) [Entitic vol] 10.2 fL Normal 6.2-12.0 [facility] Comment on above: Performed By: #### L 501.5200, L100.0100, L500.4050 ####[facility] [address] [place], [address] Platelets (Bld) [#/Vol] 449 10*3/uL Normal 150-450 [facility] Comment on above: Performed By: #### L 501.5200, L100.0100, L500.4050 ####[facility] [address] [place], [address] RBC (Bld) [#/Vol] 4.57 10*6/uL Low 4.6-6.2 [facility] Comment on above: Performed By: #### L 501.5200, L100.0100, L500.4050 ####[facility] [address] [place], [address] RDW SD 45.9 fl High 35.1-43.9 [facility] Comment on above: Performed By: #### L 501.5200, L100.0100, L500.4050 ####[facility] [address] [place], [address] WBC (Bld) [#/Vol] 12.0 10*3/uL High 4.4-11.0 [facility] Comment on above: Performed By: #### L 501.5200, L100.0100, L500.4050 ####[facility] [address] [place], [address] Comprehensive Metabolic Prof il12-25-2024 Albumin [Mass/Vol] 4.0 g/dL Normal 3.4-4.8 [facility] Comment on above: Performed By: #### L 501.5200, L100.0100, L500.4050 ####[facility] [address] [place], [address] Albumin/Globulin [Mass ratio] 1.5 {ratio} Normal 0.9-2.4 [facility] Comment on above: Performed By: #### L 501.5200, L100.0100, L500.4050 ####[facility] [address] [place], [address] ALK PHOS 74 U/L Normal 40-129 [facility] Comment on above: Performed By: #### L 501.5200, L100.0100, L500.4050 ####[facility] [address] [place], [address] ALT [Catalytic activity/Vol] 22 U/L Normal <=46 [facility] Comment on above: Performed By: #### L 501.5200, L100.0100, L500.4050 ####[facility] [address] [place], [address] AST [Catalytic activity/Vol] 31 U/L Normal <=37 [facility] Comment on above: Performed By: #### L 501.5200, L100.0100, L500.4050 ####[facility] [address] [place], [address] Bilirubin [Mass/Vol] 0.23 mg/dL Normal 0.00-1.30 [facility] Comment on above: Performed By: #### L 501.5200, L100.0100, L500.4050 ####[facility] [address] [place], [address] BUN/CRE 13.4 RATIO Normal 10-20 [facility] Comment on above: Performed By: #### L 501.5200, L100.0100, L500.4050 ####[facility] [address] [place], [address] Calcium [Mass/Vol] 9.5 mg/dL Normal 7.6-11.0 [facility] Comment on above: Performed By: #### L 501.5200, L100.0100, L500.4050 ####[facility] [address] [place], [address] Chloride [Moles/Vol] 101 mmol/L Normal 98-108 [facility] Comment on above: Performed By: #### L 501.5200, L100.0100, L500.4050 ####[facility] [address] [place], [address] CO2 [Moles/Vol] 27.5 mmol/L Normal 21.0-32.0 [facility] Comment on above: Performed By: #### L 501.5200, L100.0100, L500.4050 ####[facility] [address] [place], [address] Creatinine [Mass/Vol] 1.05 mg/dL Normal 0.70-1.20 [facility] Comment on above: Performed By: #### L 501.5200, L100.0100, L500.4050 ####[facility] [address] [place], [address] ECRCL 58.81 ml/min Normal 50-250 [facility] Comment on above: Performed By: #### L 501.5200, L100.0100, L500.4050 ####[facility] [address] [place], [address] GAP 12 Normal 5-15 [facility] Comment on above: Performed By: #### L 501.5200, L100.0100, L500.4050 ####[facility] [address] [place], [address] GFR/1.73 sq M.predicted among non-blacks MDRD (S/P/Bld) [Vol rate/Area] 74 mL/min/{1.73_m2} Normal >60 [facility] Comment on above: Result Comment: mL/m in/1.73m2 CKD-EPI Creatinine Equation (2020) Performed By: #### L 501.5200, L100.0100, L500.4050 ####[facility] [address] [place], [address] Globulin (S) [Mass/Vol] 2.7 g/dL Normal 2.2-4.2 [facility] Comment on above: Performed By: #### L 501.5200, L100.0100, L500.4050 ####[facility] [facility] [address] [place], [address] Glucose [Mass/Vol] 118 mg/dL High 70-99 [facility] Comment on above: Performed By: #### L 501.5200, L100.0100, L500.4050 ####[facility] [address] [place], [address] Potassium [Moles/Vol] 3.3 mmol/L Normal 3.3-5.1 [facility] Comment on above: Performed By: #### L 501.5200, L100.0100, L500.4050 ####[facility] [address] [place], [address] Sodium [Moles/Vol] 141 mmol/L Normal 133-145 [facility] Comment on above: Performed By: #### L 501.5200, L100.0100, L500.4050 ####[facility] [address] [place], [address] T PROT 6.7 g/dL Normal 5.9-8.4 [facility] Comment on above: Performed By: #### L 501.5200, L100.0100, L500.4050 ####[facility] [address] [place], [address] Urea nitrogen [Mass/Vol] 14 mg/dL Normal 4-19 [facility] Comment on above: Performed By: #### L 501.5200, L100.0100, L500.4050 ####[facility] [address] [place], [address] Magnesiumon 12-25-2024 Magnesium [Mass/Vol] 2.3 mg/dL High 1.5-2.2 [facility] Comment on above: Performed By: #### L 501.5200, L100.0100, L500.4050 ####[facility] [address] [place], [address] Magnesium measurement (mass/ volume)Ordered By: Sania Peña on 12-25-2024 Magnesium (Unsp spec) [Mass/Vol] 2.3 mg/dL High 1.5-2.2 [facility] Phosphoruson 12-25-2024 Phosphate [Mass/Vol] 2.0 mg/dL Low 2.7-4.5 [facility] Comment on above: Performed By: #### L 501.2300 ####[facility] [address] [place], [address] CBC W/Diff, Automatedon 07-0 Absolute Lymph 0.72 X10 3/uL Low 0.83-4.51 [facility] Comment on above: Performed By: #### L 100.0100, L500.4050 ####[facility] [address] [place], [address] Absolute Neut 7.0 X10 3/uL Normal 2.0-7.7 [facility] Comment on above: Performed By: #### L 100.0100, L500.4050 ####[facility] [address] [place], [address] Basophils/100 WBC (Bld) 0.5 % Normal 0-1 [facility] Comment on above: Performed By: #### L 100.0100, L500.4050 ####[facility] [address] [place], [address] Eosinophils/100 WBC (Bld) 0.4 % Normal 0-5 [facility] Comment on above: Performed By: #### L 100.0100, L500.4050 ####[facility] [address] [place], [address] Erythrocyte distribution width (RBC) [Ratio] 14.6 % Normal 11.6-14.6 [facility] Comment on above: Performed By: #### L 100.0100, L500.4050 ####[facility] [address] [place], [address] Hematocrit (Bld) [Volume fraction] 37.0 % Low 40-54 [facility] Comment on above: Performed By: #### L 100.0100, L500.4050 ####[facility] [address] [place], [address] Hemoglobin (Bld) [Mass/Vol] 11.5 g/dL Low 13.0-16.5 [facility] Comment on above: Performed By: #### L 100.0100, L500.4050 ####[facility] [address] [place], [address] IG% 0.500 Normal 0.0-0.9 [facility] Comment on above: Result Comment: IG% - Immature Granulocytes (promyelocytes, myelocytes andmetamyelocytes) > 1% indicates that a LEFT SHIFT is Present. Performed By: #### L 100.0100, L500.4050 ####[facility] [address] [place], [address] Lymphocytes/100 WBC (Bld) 8.5 % Low 19-41 [facility] Comment on above: Performed By: #### L 100.0100, L500.4050 ####[facility] [address] [place], [address] MCH (RBC) [Entitic mass] 27.7 pg Normal 27.0-32.0 [facility] Comment on above: Performed By: #### L 100.0100, L500.4050 ####[facility] [address] [place], [address] MCHC (RBC) [Mass/Vol] 31.1 g/dL Low 32-36 [facility] Comment on above: Performed By: #### L 100.0100, L500.4050 ####[facility] [address] [place], [address] MCV (RBC) [Entitic vol] 89.2 fL Normal 80-94 [facility] Comment on above: Performed By: #### L 100.0100, L500.4050 ####[facility] [address] [place], [address] Monocytes/100 WBC (Bld) 7.7 % Normal 0-10 [facility] Comment on above: Performed By: #### L 100.0100, L500.4050 ####[facility] [address] [place], [address] Neutrophils/100 WBC (Bld) 82.4 % High 47-70 [facility] Comment on above: Performed By: #### L 100.0100, L500.4050 ####[facility] [address] [place], [address] Nucleated RBC (Bld) [#/Vol] 0 10*3/uL Normal 0-5 [facility] Comment on above: Performed By: #### L 100.0100, L500.4050 ####[facility] [address] [place], [address] Platelet mean volume (Bld) [Entitic vol] 9.7 fL Normal 6.2-12.0 [facility] Comment on above: Performed By: #### L 100.0100, L500.4050 ####[facility] [address] [place], [address] Platelets (Bld) [#/Vol] 380 10*3/uL Normal 150-450 [facility] Comment on above: Performed By: #### L 100.0100, L500.4050 ####[facility] [address] [place], [address] RBC (Bld) [#/Vol] 4.15 10*6/uL Low 4.6-6.2 [facility] Comment on above: Performed By: #### L 100.0100, L500.4050 ####[facility] [address] [place], [address] RDW SD 46.6 fl High 35.1-43.9 [facility] Comment on above: Performed By: #### L 100.0100, L500.4050 ####[facility] [address] [place], [address] WBC (Bld) [#/Vol] 8.5 10*3/uL Normal 4.4-11.0 [facility] Comment on above: Performed By: #### L 100.0100, L500.4050 ####[facility] [address] [place], [address] [facility] 12-24-2024 Albumin [Mass/Vol] 3.8 g/dL Normal 3.4-4.8 [facility] Comment on above: Performed By: #### L 100.0100, L500.4050 ####[facility] [address] [place], [address] Albumin/Globulin [Mass ratio] 1.8 {ratio} Normal 0.9-2.4 [facility] Comment on above: Performed By: #### L 100.0100, L500.4050 ####[facility] [address] [place], [address] ALK PHOS 64 U/L Normal 40-129 [facility] Comment on above: Performed By: #### L 100.0100, L500.4050 ####[facility] [address] [place], [address] ALT [Catalytic activity/Vol] 28 U/L Normal <=46 [facility] Comment on above: Performed By: #### L 100.0100, L500.4050 ####[facility] [address] [place], [address] AST [Catalytic activity/Vol] 23 U/L Normal <=37 [facility] Comment on above: Performed By: #### L 100.0100, L500.4050 ####[facility] [address] [place], [address] Bilirubin [Mass/Vol] 0.25 mg/dL Normal 0.00-1.30 [facility] Comment on above: Performed By: #### L 100.0100, L500.4050 ####[facility] [address] [place], [address] BUN/CRE 16.9 RATIO Normal 10-20 [facility] Comment on above: Performed By: #### L 100.0100, L500.4050 ####[facility] [address] [place], [address] Calcium [Mass/Vol] 8.4 mg/dL Normal 7.6-11.0 [facility] Comment on above: Performed By: #### L 100.0100, L500.4050 ####[facility] [address] [place], [address] Chloride [Moles/Vol] 106 mmol/L Normal 98-108 [facility] Comment on above: Performed By: #### L 100.0100, L500.4050 ####[facility] [address] [place], [address] CO2 [Moles/Vol] 23.1 mmol/L Normal 21.0-32.0 [facility] Comment on above: Performed By: #### L 100.0100, L500.4050 ####[facility] [address] [place], [address] Creatinine [Mass/Vol] 0.98 mg/dL Normal 0.70-1.20 [facility] Comment on above: Performed By: #### L 100.0100, L500.4050 ####[facility] [address] [place], [address] ECRCL 63.01 ml/min Normal 50-250 [facility] Comment on above: Performed By: #### L 100.0100, L500.4050 ####[facility] [address] [place], [address] GAP 11 Normal 5-15 [facility] Comment on above: Performed By: #### L 100.0100, L500.4050 ####[facility] [address] [place], [address] GFR/1.73 sq M.predicted among non-blacks MDRD (S/P/Bld) [Vol rate/Area] 81 mL/min/{1.73_m2} Normal >60 [facility] Comment on above: Result Comment: mL/m in/1.73m2 CKD-EPI Creatinine Equation (2020) Performed By: #### L 100.0100, L500.4050 ####[facility] [address] [place], [address] Globulin (S) [Mass/Vol] 2.2 g/dL Normal 2.2-4.2 [facility] Comment on above: Performed By: #### L 100.0100, L500.4050 ####[facility] [address] [place], [address] Glucose [Mass/Vol] 92 mg/dL Normal 70-99 [facility] Comment on above: Performed By: #### L 100.0100, L500.4050 ####[facility] [address] [place], [address] Potassium [Moles/Vol] 3.9 mmol/L Normal 3.3-5.1 [facility] Comment on above: Performed By: #### L 100.0100, L500.4050 ####[facility] [address] [place], [address] Sodium [Moles/Vol] 140 mmol/L Normal 133-145 [facility] Comment on above: Performed By: #### L 100.0100, L500.4050 ####[facility] [address] [place], [address] T PROT 6.0 g/dL Normal 5.9-8.4 [facility] Comment on above: Performed By: #### L 100.0100, L500.4050 ####[facility] [address] [place], [address] Urea nitrogen [Mass/Vol] 17 mg/dL Normal 4-19 [facility] Comment on above: Performed By: #### L 100.0100, L500.4050 ####[facility] [address] [place], [address] Basic Metabolic Profile (BMP )on 12-23-2024 BUN/CRE 16.4 RATIO Normal 10-20 [facility] Comment on above: Performed By: #### L 500.2500, L100.0500 ####[facility] [address] [place], [address] Calcium [Mass/Vol] 8.4 mg/dL Normal 7.6-11.0 [facility] Comment on above: Performed By: #### L 500.2500, L100.0500 ####[facility] [address] [place], [address] Chloride [Moles/Vol] 104 mmol/L Normal 98-108 [facility] Comment on above: Performed By: #### L 500.2500, L100.0500 ####[facility] [address] [place], [address] CO2 [Moles/Vol] 24.1 mmol/L Normal 21.0-32.0 [facility] Comment on above: Performed By: #### L 500.2500, L100.0500 ####[facility] [address] [place], [address] Creatinine [Mass/Vol] 1.02 mg/dL Normal 0.70-1.20 [facility] Comment on above: Performed By: #### L 500.2500, L100.0500 ####[facility] [address] [place], [address] ECRCL 60.54 ml/min Normal 50-250 [facility] Comment on above: Performed By: #### L 500.2500, L100.0500 ####[facility] [address] [place], [address] GAP 11 Normal 5-15 [facility] Comment on above: Performed By: #### L 500.2500, L100.0500 ####[facility] [address] [place], [address] GFR/1.73 sq M.predicted among non-blacks MDRD (S/P/Bld) [Vol rate/Area] 77 mL/min/{1.73_m2} Normal >60 [facility] Comment on above: Result Comment: mL/m in/1.73m2 CKD-EPI Creatinine Equation (2020) Performed By: #### L 500.2500, L100.0500 ####[facility] [address] [place], [address] Glucose [Mass/Vol] 85 mg/dL Normal 70-99 [facility] Comment on above: Performed By: #### L 500.2500, L100.0500 ####[facility] [address] [place], [address] Potassium [Moles/Vol] 3.8 mmol/L Normal 3.3-5.1 [facility] Comment on above: Performed By: #### L 500.2500, L100.0500 ####[facility] [address] [place], [address] Sodium [Moles/Vol] 139 mmol/L Normal 133-145 [facility] Comment on above: Performed By: #### L 500.2500, L100.0500 ####[facility] [address] [place], [address] Urea nitrogen [Mass/Vol] 17 mg/dL Normal 4-19 [facility] Comment on above: Performed By: #### L 500.2500, L100.0500 ####[facility] [address] [place], [address] CBC-Complete Blood Cnt No Di ffon 12-23-2024 Erythrocyte distribution width (RBC) [Ratio] 14.1 % Normal 11.6-14.6 [facility] Comment on above: Performed By: #### L 500.2500, L100.0500 ####[facility] [address] [place], [address] Hematocrit (Bld) [Volume fraction] 36.3 % Low 40-54 [facility] Comment on above: Performed By: #### L 500.2500, L100.0500 ####[facility] [address] [place], [address] Hemoglobin (Bld) [Mass/Vol] 11.2 g/dL Low 13.0-16.5 [facility] Comment on above: Performed By: #### L 500.2500, L100.0500 ####[facility] [address] [place], [address] MCH (RBC) [Entitic mass] 27.7 pg Normal 27.0-32.0 [facility] Comment on above: Performed By: #### L 500.2500, L100.0500 ####[facility] [address] [place], [address] MCHC (RBC) [Mass/Vol] 30.9 g/dL Low 32-36 [facility] Comment on above: Performed By: #### L 500.2500, L100.0500 ####[facility] [address] [place], [address] MCV (RBC) [Entitic vol] 89.9 fL Normal 80-94 [facility] Comment on above: Performed By: #### L 500.2500, L100.0500 ####[facility] [address] [place], [address] Platelet mean volume (Bld) [Entitic vol] 10.0 fL Normal 6.2-12.0 [facility] Comment on above: Performed By: #### L 500.2500, L100.0500 ####[facility] [address] [place], [address] Platelets (Bld) [#/Vol] 376 10*3/uL Normal 150-450 [facility] Comment on above: Performed By: #### L 500.2500, L100.0500 ####[facility] [address] [place], [address] RBC (Bld) [#/Vol] 4.04 10*6/uL Low 4.6-6.2 [facility] Comment on above: Performed By: #### L 500.2500, L100.0500 ####[facility] [address] [place], [address] RDW SD 46.0 fl High 35.1-43.9 [facility] Comment on above: Performed By: #### L 500.2500, L100.0500 ####[facility] [address] [place], [address] WBC (Bld) [#/Vol] 7.5 10*3/uL Normal 4.4-11.0 [facility] Comment on above: Performed By: #### L 500.2500, L100.0500 ####[facility] [address] [place], [address] Duplex ultrasound of carotid artery reportOrdered By: Raul Jensen on 12-23-2024 Study report [facility] Work Phone: EGD Reporton 12-23-2024 EGD Report Normal [facility] MR/POSTOP.ANEon 12-23-2024 MR/POSTOP.ANE Normal [facility] MR/EGTMAMWJ0qb 12-23-2024 MR/POSTOPAN2 Normal [facility] Basic Metabolic Profile (BMP )on 12-22-2024 BUN/CRE 15.7 RATIO Normal 10-20 [facility] Comment on above: Performed By: #### L 500.2500, L100.0500 ####[facility] [address] [place], [address] Calcium [Mass/Vol] 8.8 mg/dL Normal 7.6-11.0 [facility] Comment on above: Performed By: #### L 500.2500, L100.0500 ####[facility] [address] [place], [address] Chloride [Moles/Vol] 103 mmol/L Normal 98-108 [facility] Comment on above: Performed By: #### L 500.2500, L100.0500 ####[facility] [address] [place], [address] CO2 [Moles/Vol] 24.6 mmol/L Normal 21.0-32.0 [facility] Comment on above: Performed By: #### L 500.2500, L100.0500 ####[facility] [address] [place], [address] Creatinine [Mass/Vol] 1.03 mg/dL Normal 0.70-1.20 [facility] Comment on above: Performed By: #### L 500.2500, L100.0500 ####[facility] [address] [place], [address] ECRCL 59.95 ml/min Normal 50-250 [facility] Comment on above: Performed By: #### L 500.2500, L100.0500 ####[facility] [address] [place], [address] GAP 11 Normal 5-15 [facility] Comment on above: Performed By: #### L 500.2500, L100.0500 ####[facility] [address] [place], [address] GFR/1.73 sq M.predicted among non-blacks MDRD (S/P/Bld) [Vol rate/Area] 76 mL/min/{1.73_m2} Normal >60 [facility] Comment on above: Result Comment: mL/m in/1.73m2 CKD-EPI Creatinine Equation (2020) Performed By: #### L 500.2500, L100.0500 ####[facility] [address] [place], [address] Glucose [Mass/Vol] 84 mg/dL Normal 70-99 [facility] Comment on above: Performed By: #### L 500.2500, L100.0500 ####[facility] [address] [place], [address] Potassium [Moles/Vol] 3.6 mmol/L Normal 3.3-5.1 [facility] Comment on above: Performed By: #### L 500.2500, L100.0500 ####[facility] [address] [place], [address] Sodium [Moles/Vol] 139 mmol/L Normal 133-145 [facility] Comment on above: Performed By: #### L 500.2500, L100.0500 ####[facility] [address] [place], [address] Urea nitrogen [Mass/Vol] 16 mg/dL Normal 4-19 [facility] Comment on above: Performed By: #### L 500.2500, L100.0500 ####[facility] [address] [place], [address] CBC-Complete Blood Cnt No Di ffon 12-22-2024 Erythrocyte distribution width (RBC) [Ratio] 13.8 % Normal 11.6-14.6 [facility] Comment on above: Performed By: #### L 500.2500, L100.0500 ####[facility] [address] [place], [address] Hematocrit (Bld) [Volume fraction] 37.7 % Low 40-54 [facility] Comment on above: Performed By: #### L 500.2500, L100.0500 ####[facility] [address] [place], [address] Hemoglobin (Bld) [Mass/Vol] 11.7 g/dL Low 13.0-16.5 [facility] Comment on above: Performed By: #### L 500.2500, L100.0500 ####[facility] [address] [place], [address] MCH (RBC) [Entitic mass] 27.7 pg Normal 27.0-32.0 [facility] Comment on above: Performed By: #### L 500.2500, L100.0500 ####[facility] [address] [place], [address] MCHC (RBC) [Mass/Vol] 31.0 g/dL Low 32-36 [facility] Comment on above: Performed By: #### L 500.2500, L100.0500 ####[facility] [address] [place], [address] MCV (RBC) [Entitic vol] 89.1 fL Normal 80-94 [facility] Comment on above: Performed By: #### L 500.2500, L100.0500 ####[facility] [address] [place], [address] Platelet mean volume (Bld) [Entitic vol] 10.1 fL Normal 6.2-12.0 [facility] Comment on above: Performed By: #### L 500.2500, L100.0500 ####[facility] [address] [place], [address] Platelets (Bld) [#/Vol] 392 10*3/uL Normal 150-450 [facility] Comment on above: Performed By: #### L 500.2500, L100.0500 ####[facility] [address] [place], [address] RBC (Bld) [#/Vol] 4.23 10*6/uL Low 4.6-6.2 [facility] Comment on above: Performed By: #### L 500.2500, L100.0500 ####[facility] [address] [place], [address] RDW SD 45.0 fl High 35.1-43.9 [facility] Comment on above: Performed By: #### L 500.2500, L100.0500 ####[facility] [address] [place], [address] WBC (Bld) [#/Vol] 7.5 10*3/uL Normal 4.4-11.0 [facility] Comment on above: Performed By: #### L 500.2500, L100.0500 ####[facility] [address] [place], [address] Basic Metabolic Profile (BMP )on 12-21-2024 BUN/CRE 16.2 RATIO Normal 10-20 [facility] Comment on above: Performed By: #### L 100.0100, L500.2500 ####[facility] [address] [place], [address] Calcium [Mass/Vol] 8.3 mg/dL Normal 7.6-11.0 [facility] Comment on above: Performed By: #### L 100.0100, L500.2500 ####[facility] [address] [place], [address] Chloride [Moles/Vol] 105 mmol/L Normal 98-108 [facility] Comment on above: Performed By: #### L 100.0100, L500.2500 ####[facility] [address] [place], [address] CO2 [Moles/Vol] 25.0 mmol/L Normal 21.0-32.0 [facility] Comment on above: Performed By: #### L 100.0100, L500.2500 ####[facility] [address] [place], [address] Creatinine [Mass/Vol] 0.99 mg/dL Normal 0.70-1.20 [facility] Comment on above: Performed By: #### L 100.0100, L500.2500 ####[facility] [address] [place], [address] ECRCL 62.37 ml/min Normal 50-250 [facility] Comment on above: Performed By: #### L 100.0100, L500.2500 ####[facility] [address] [place], [address] GAP 9 Normal 5-15 [facility] Comment on above: Performed By: #### L 100.0100, L500.2500 ####[facility] [address] [place], [address] GFR/1.73 sq M.predicted among non-blacks MDRD (S/P/Bld) [Vol rate/Area] 80 mL/min/{1.73_m2} Normal >60 [facility] Comment on above: Result Comment: mL/m in/1.73m2 CKD-EPI Creatinine Equation (2020) Performed By: #### L 100.0100, L500.2500 ####[facility] [address] [place], [address] Glucose [Mass/Vol] 95 mg/dL Normal 70-99 [facility] Comment on above: Performed By: #### L 100.0100, L500.2500 ####[facility] [address] [place], [address] Potassium [Moles/Vol] 3.5 mmol/L Normal 3.3-5.1 [facility] Comment on above: Performed By: #### L 100.0100, L500.2500 ####[facility] [address] [place], [address] Sodium [Moles/Vol] 139 mmol/L Normal 133-145 [facility] Comment on above: Performed By: #### L 100.0100, L500.2500 ####[facility] [address] [place], [address] Urea nitrogen [Mass/Vol] 16 mg/dL Normal 4-19 [facility] Comment on above: Performed By: #### L 100.0100, L500.2500 ####[facility] [address] [place], [address] CBC W/Diff, Automatedon 07-0 5-2025 Absolute Lymph 0.95 X10 3/uL Normal 0.83-4.51 [facility] Comment on above: Performed By: #### L 100.0100, L500.2500 ####[facility] [address] [place], [address] Absolute Neut 5.0 X10 3/uL Normal 2.0-7.7 [facility] Comment on above: Performed By: #### L 100.0100, L500.2500 ####[facility] [address] [place], [address] Basophils/100 WBC (Bld) 0.6 % Normal 0-1 [facility] Comment on above: Performed By: #### L 100.0100, L500.2500 ####[facility] [address] [place], [address] Eosinophils/100 WBC (Bld) 1.2 % Normal 0-5 [facility] Comment on above: Performed By: #### L 100.0100, L500.2500 ####[facility] [address] [place], [address] Erythrocyte distribution width (RBC) [Ratio] 13.7 % Normal 11.6-14.6 [facility] Comment on above: Performed By: #### L 100.0100, L500.2500 ####[facility] [address] [place], [address] Hematocrit (Bld) [Volume fraction] 33.8 % Low 40-54 [facility] Comment on above: Performed By: #### L 100.0100, L500.2500 ####[facility] [address] [place], [address] Hemoglobin (Bld) [Mass/Vol] 10.4 g/dL Low 13.0-16.5 [facility] Comment on above: Performed By: #### L 100.0100, L500.2500 ####[facility] [address] [place], [address] IG% 0.400 Normal 0.0-0.9 [facility] Comment on above: Result Comment: IG% - Immature Granulocytes (promyelocytes, myelocytes andmetamyelocytes) > 1% indicates that a LEFT SHIFT is Present. Performed By: #### L 100.0100, L500.2500 ####[facility] [address] [place], [address] Lymphocytes/100 WBC (Bld) 14.2 % Low 19-41 [facility] Comment on above: Performed By: #### L 100.0100, L500.2500 ####[facility] [address] [place], [address] MCH (RBC) [Entitic mass] 27.6 pg Normal 27.0-32.0 [facility] Comment on above: Performed By: #### L 100.0100, L500.2500 ####[facility] [address] [place], [address] MCHC (RBC) [Mass/Vol] 30.8 g/dL Low 32-36 [facility] Comment on above: Performed By: #### L 100.0100, L500.2500 ####[facility] [address] [place], [address] MCV (RBC) [Entitic vol] 89.7 fL Normal 80-94 [facility] Comment on above: Performed By: #### L 100.0100, L500.2500 ####[facility] [address] [place], [address] Monocytes/100 WBC (Bld) 8.5 % Normal 0-10 [facility] Comment on above: Performed By: #### L 100.0100, L500.2500 ####[facility] [address] [place], [address] Neutrophils/100 WBC (Bld) 75.1 % High 47-70 [facility] Comment on above: Performed By: #### L 100.0100, L500.2500 ####[facility] [address] [place], [address] Nucleated RBC (Bld) [#/Vol] 0 10*3/uL Normal 0-5 [facility] Comment on above: Performed By: #### L 100.0100, L500.2500 ####[facility] [address] [place], [address] Platelet mean volume (Bld) [Entitic vol] 9.7 fL Normal 6.2-12.0 [facility] Comment on above: Performed By: #### L 100.0100, L500.2500 ####[facility] [address] [place], [address] Platelets (Bld) [#/Vol] 326 10*3/uL Normal 150-450 [facility] Comment on above: Performed By: #### L 100.0100, L500.2500 ####[facility] [address] [place], [address] RBC (Bld) [#/Vol] 3.77 10*6/uL Low 4.6-6.2 [facility] Comment on above: Performed By: #### L 100.0100, L500.2500 ####[facility] [address] [place], [address] RDW SD 44.7 fl High 35.1-43.9 [facility] Comment on above: Performed By: #### L 100.0100, L500.2500 ####[facility] [address] [place], [address] WBC (Bld) [#/Vol] 6.7 10*3/uL Normal 4.4-11.0 [facility] Comment on above: Performed By: #### L 100.0100, L500.2500 ####[facility] [address] [place], [address] CBC W/Diff, Automatedon 07-0 4-202 Absolute Lymph 0.69 X10 3/uL Low 0.83-4.51 [facility] Comment on above: Performed By: #### L 100.0100 ####[facility] [address] [place], [address] Absolute Neut 5.5 X10 3/uL Normal 2.0-7.7 [facility] Comment on above: Performed By: #### L 100.0100 ####[facility] [address] [place], [address] Basophils/100 WBC (Bld) 0.9 % Normal 0-1 [facility] Comment on above: Performed By: #### L 100.0100 ####[facility] [address] [place], [address] Eosinophils/100 WBC (Bld) 1.2 % Normal 0-5 [facility] Comment on above: Performed By: #### L 100.0100 ####[facility] [address] [place], [address] Erythrocyte distribution width (RBC) [Ratio] 13.7 % Normal 11.6-14.6 [facility] Comment on above: Performed By: #### L 100.0100 ####[facility] [address] [place], [address] Hematocrit (Bld) [Volume fraction] 35.7 % Low 40-54 [facility] Comment on above: Performed By: #### L 100.0100 ####[facility] [address] [place], [address] Hemoglobin (Bld) [Mass/Vol] 10.9 g/dL Low 13.0-16.5 [facility] Comment on above: Performed By: #### L 100.0100 ####[facility] [address] [place], [address] IG% 0.400 Normal 0.0-0.9 [facility] Comment on above: Result Comment: IG% - Immature Granulocytes (promyelocytes, myelocytes andmetamyelocytes) > 1% indicates that a LEFT SHIFT is Present. Performed By: #### L 100.0100 ####[facility] [address] [place], [address] Lymphocytes/100 WBC (Bld) 9.9 % Low 19-41 [facility] Comment on above: Performed By: #### L 100.0100 ####[facility] [address] [place], [address] MCH (RBC) [Entitic mass] 27.3 pg Normal 27.0-32.0 [facility] Comment on above: Performed By: #### L 100.0100 ####[facility] [address] [place], [address] MCHC (RBC) [Mass/Vol] 30.5 g/dL Low 32-36 [facility] Comment on above: Performed By: #### L 100.0100 ####[facility] [address] [place], [address] MCV (RBC) [Entitic vol] 89.5 fL Normal 80-94 [facility] Comment on above: Performed By: #### L 100.0100 ####[facility] [address] [place], [address] Monocytes/100 WBC (Bld) 8.5 % Normal 0-10 [facility] Comment on above: Performed By: #### L 100.0100 ####[facility] [address] [place], [address] Neutrophils/100 WBC (Bld) 79.1 % High 47-70 [facility] Comment on above: Performed By: #### L 100.0100 ####[facility] [address] [place], [address] Nucleated RBC (Bld) [#/Vol] 0 10*3/uL Normal 0-5 [facility] Comment on above: Performed By: #### L 100.0100 ####[facility] [address] [place], [address] Platelet mean volume (Bld) [Entitic vol] 10.0 fL Normal 6.2-12.0 [facility] Comment on above: Performed By: #### L 100.0100 ####[facility] [address] [place], [address] Platelets (Bld) [#/Vol] 355 10*3/uL Normal 150-450 [facility] Comment on above: Performed By: #### L 100.0100 ####[facility] [address] [place], [address] RBC (Bld) [#/Vol] 3.99 10*6/uL Low 4.6-6.2 [facility] Comment on above: Performed By: #### L 100.0100 ####[facility] [address] [place], [address] RDW SD 44.4 fl High 35.1-43.9 [facility] Comment on above: Performed By: #### L 100.0100 ####[facility] [address] [place], [address] WBC (Bld) [#/Vol] 6.9 10*3/uL Normal 4.4-11.0 [facility] Comment on above: Performed By: #### L 100.0100 ####[facility] [address] [place], [address] Carotid Duplex Ultrasoundon 12-20-2024 Carotid Duplex Ultrasound Normal [facility] Vitamin B12on 12-20-2024 Cobalamin (Vitamin B12) [Mass/Vol] 774 pg/mL Normal 180-914 [facility] Comment on above: Performed By: #### L 503.0106 ####[facility] [address] [place], [address] Vitamin B12 ser/plasOrdered By: Lisha Talamantes on 12-20-2024 Cobalamin (Vitamin B12) [Mass/Vol] 774 pg/mL 180-914 [facility] CBC W/Diff, Automatedon 07- Absolute Lymph 0.67 X10 3/uL Low 0.83-4.51 [facility] Comment on above: Performed By: #### L 100.0100, L500.4050 ####[facility] [address] [place], [address] Absolute Neut 6.0 X10 3/uL Normal 2.0-7.7 [facility] Comment on above: Performed By: #### L 100.0100, L500.4050 ####[facility] [address] [place], [address] Basophils/100 WBC (Bld) 0.8 % Normal 0-1 [facility] Comment on above: Performed By: #### L 100.0100, L500.4050 ####[facility] [address] [place], [address] Eosinophils/100 WBC (Bld) 1.9 % Normal 0-5 [facility] Comment on above: Performed By: #### L 100.0100, L500.4050 ####[facility] [address] [place], [address] Erythrocyte distribution width (RBC) [Ratio] 13.6 % Normal 11.6-14.6 [facility] Comment on above: Performed By: #### L 100.0100, L500.4050 ####[facility] [address] [place], [address] Hematocrit (Bld) [Volume fraction] 39.1 % Low 40-54 [facility] Comment on above: Performed By: #### L 100.0100, L500.4050 ####[facility] [address] [place], [address] Hemoglobin (Bld) [Mass/Vol] 11.9 g/dL Low 13.0-16.5 [facility] Comment on above: Performed By: #### L 100.0100, L500.4050 ####[facility] [address] [place], [address] IG% 0.400 Normal 0.0-0.9 [facility] Comment on above: Result Comment: IG% - Immature Granulocytes (promyelocytes, myelocytes andmetamyelocytes) > 1% indicates that a LEFT SHIFT is Present. Performed By: #### L 100.0100, L500.4050 ####[facility] [address] [place], [address] Lymphocytes/100 WBC (Bld) 9.0 % Low 19-41 [facility] Comment on above: Performed By: #### L 100.0100, L500.4050 ####[facility] [address] [place], [address] MCH (RBC) [Entitic mass] 27.5 pg Normal 27.0-32.0 [facility] Comment on above: Performed By: #### L 100.0100, L500.4050 ####[facility] [address] [place], [address] MCHC (RBC) [Mass/Vol] 30.4 g/dL Low 32-36 [facility] Comment on above: Performed By: #### L 100.0100, L500.4050 ####[facility] [address] [place], [address] MCV (RBC) [Entitic vol] 90.5 fL Normal 80-94 [facility] Comment on above: Performed By: #### L 100.0100, L500.4050 ####[facility] [address] [place], [address] Monocytes/100 WBC (Bld) 6.6 % Normal 0-10 [facility] Comment on above: Performed By: #### L 100.0100, L500.4050 ####[facility] [address] [place], [address] Neutrophils/100 WBC (Bld) 81.3 % High 47-70 [facility] Comment on above: Performed By: #### L 100.0100, L500.4050 ####[facility] [address] [place], [address] Nucleated RBC (Bld) [#/Vol] 0 10*3/uL Normal 0-5 [facility] Comment on above: Performed By: #### L 100.0100, L500.4050 ####[facility] [address] [place], [address] Platelet mean volume (Bld) [Entitic vol] 9.6 fL Normal 6.2-12.0 [facility] Comment on above: Performed By: #### L 100.0100, L500.4050 ####[facility] [address] [place], [address] Platelets (Bld) [#/Vol] 375 10*3/uL Normal 150-450 [facility] Comment on above: Performed By: #### L 100.0100, L500.4050 ####[facility] [address] [place], [address] RBC (Bld) [#/Vol] 4.32 10*6/uL Low 4.6-6.2 [facility] Comment on above: Performed By: #### L 100.0100, L500.4050 ####[facility] [address] [place], [address] RDW SD 44.8 fl High 35.1-43.9 [facility] Comment on above: Performed By: #### L 100.0100, L500.4050 ####[facility] [address] [place], [address] WBC (Bld) [#/Vol] 7.4 10*3/uL Normal 4.4-11.0 [facility] Comment on above: Performed By: #### L 100.0100, L500.4050 ####[facility] [address] [place], [address] CDIFF (PCR)on 12-19-2024 CDIFF Normal [facility] Comment on above: Performed By: #### M 100.6796 ####[facility] [address] [place], [address] Comprehensive Metabolic Prof ilon 12-19-2024 Albumin [Mass/Vol] 4.3 g/dL Normal 3.4-4.8 [facility] Comment on above: Performed By: #### L 100.0100, L500.4050 ####[facility] [address] [place], [address] Albumin/Globulin [Mass ratio] 1.5 {ratio} Normal 0.9-2.4 [facility] Comment on above: Performed By: #### L 100.0100, L500.4050 ####[facility] [address] [place], [address] ALK PHOS 69 U/L Normal 40-129 [facility] Comment on above: Performed By: #### L 100.0100, L500.4050 ####[facility] [address] [place], [address] ALT [Catalytic activity/Vol] 25 U/L Normal <=46 [facility] Comment on above: Performed By: #### L 100.0100, L500.4050 ####[facility] [address] [place], [address] AST [Catalytic activity/Vol] 23 U/L Normal <=37 [facility] Comment on above: Performed By: #### L 100.0100, L500.4050 ####[facility] [address] [place], [address] Bilirubin [Mass/Vol] 0.24 mg/dL Normal 0.00-1.30 [facility] Comment on above: Performed By: #### L 100.0100, L500.4050 ####[facility] [address] [place], [address] BUN/CRE 17.6 RATIO Normal 10-20 [facility] Comment on above: Performed By: #### L 100.0100, L500.4050 ####[facility] [address] [place], [address] Calcium [Mass/Vol] 9.5 mg/dL Normal 7.6-11.0 [facility] Comment on above: Performed By: #### L 100.0100, L500.4050 ####[facility] [address] [place], [address] Chloride [Moles/Vol] 101 mmol/L Normal 98-108 [facility] Comment on above: Performed By: #### L 100.0100, L500.4050 ####[facility] [address] [place], [address] CO2 [Moles/Vol] 27.6 mmol/L Normal 21.0-32.0 [facility] Comment on above: Performed By: #### L 100.0100, L500.4050 ####[facility] [address] [place], [address] Creatinine [Mass/Vol] 1.06 mg/dL Normal 0.70-1.20 [facility] Comment on above: Performed By: #### L 100.0100, L500.4050 ####[facility] [address] [place], [address] ECRCL 58.25 ml/min Normal 50-250 [facility] Comment on above: Performed By: #### L 100.0100, L500.4050 ####[facility] [address] [place], [address] GAP 12 Normal 5-15 [facility] Comment on above: Performed By: #### L 100.0100, L500.4050 ####[facility] [address] [place], [address] GFR/1.73 sq M.predicted among non-blacks MDRD (S/P/Bld) [Vol rate/Area] 73 mL/min/{1.73_m2} Normal >60 [facility] Comment on above: Result Comment: mL/m in/1.73m2 CKD-EPI Creatinine Equation (2020) Performed By: #### L 100.0100, L500.4050 ####[facility] [address] [place], [address] Globulin (S) [Mass/Vol] 2.8 g/dL Normal 2.2-4.2 [facility] Comment on above: Performed By: #### L 100.0100, L500.4050 ####[facility] [address] [place], [address] Glucose [Mass/Vol] 109 mg/dL High 70-99 [facility] Comment on above: Performed By: #### L 100.0100, L500.4050 ####[facility] [address] [place], [address] Potassium [Moles/Vol] 3.6 mmol/L Normal 3.3-5.1 [facility] Comment on above: Performed By: #### L 100.0100, L500.4050 ####[facility] [address] [place], [address] Sodium [Moles/Vol] 141 mmol/L Normal 133-145 [facility] Comment on above: Performed By: #### L 100.0100, L500.4050 ####[facility] [address] [place], [address] T PROT 7.1 g/dL Normal 5.9-8.4 [facility] Comment on above: Performed By: #### L 100.0100, L500.4050 ####[facility] [address] [place], [address] Urea nitrogen [Mass/Vol] 19 mg/dL Normal 4-19 [facility] Comment on above: Performed By: #### L 100.0100, L500.4050 ####[facility] [address] [place], [address] ENTERIC PATHOGEN PANEL STOOL on 12-19-2024 EP PANEL Normal [facility] Comment on above: Performed By: #### M 100.637 ####[facility] [address] [place], [address] Magnetic resonance imaging r eportOrdered By: Dorian Parker on 12-19-2024 Study report [facility] Basic Metabolic Profile (BMP )on 12-18-2024 BUN/CRE 20.6 RATIO High 10-20 [facility] Comment on above: Performed By: #### L 500.2500, L100.0500 ####[facility] [address] [place], [address] Calcium [Mass/Vol] 9.7 mg/dL Normal 7.6-11.0 [facility] Comment on above: Performed By: #### L 500.2500, L100.0500 ####[facility] [address] [place], [address] Chloride [Moles/Vol] 103 mmol/L Normal 98-108 [facility] Comment on above: Performed By: #### L 500.2500, L100.0500 ####[facility] [address] [place], [address] CO2 [Moles/Vol] 26.5 mmol/L Normal 21.0-32.0 [facility] Comment on above: Performed By: #### L 500.2500, L100.0500 ####[facility] [address] [place], [address] Creatinine [Mass/Vol] 1.06 mg/dL Normal 0.70-1.20 [facility] Comment on above: Performed By: #### L 500.2500, L100.0500 ####[facility] [address] [place], [address] ECRCL 58.25 ml/min Normal 50-250 [facility] Comment on above: Performed By: #### L 500.2500, L100.0500 ####[facility] [address] [place], [address] GAP 12 Normal 5-15 [facility] Comment on above: Performed By: #### L 500.2500, L100.0500 ####[facility] [address] [place], [address] GFR/1.73 sq M.predicted among non-blacks MDRD (S/P/Bld) [Vol rate/Area] 73 mL/min/{1.73_m2} Normal >60 [facility] Comment on above: Result Comment: mL/m in/1.73m2 CKD-EPI Creatinine Equation (2020) Performed By: #### L 500.2500, L100.0500 ####[facility] [address] [place], [address] Glucose [Mass/Vol] 95 mg/dL Normal 70-99 [facility] Comment on above: Performed By: #### L 500.2500, L100.0500 ####[facility] [address] [place], [address] Potassium [Moles/Vol] 4.2 mmol/L Normal 3.3-5.1 [facility] Comment on above: Result Comment: Hemo lysis present, Results??could be affected.?? Performed By: #### L 500.2500, L100.0500 ####[facility] [address] [place], [address] Sodium [Moles/Vol] 141 mmol/L Normal 133-145 [facility] Comment on above: Performed By: #### L 500.2500, L100.0500 ####[facility] [address] [place], [address] Urea nitrogen [Mass/Vol] 22 mg/dL High 4-19 [facility] Comment on above: Performed By: #### L 500.2500, L100.0500 ####[facility] [address] [place], [address] Brain without Contraston Brain without Contrast Normal [facility] CBC-Complete Blood Cnt No Di ffon 12-18-2024 Erythrocyte distribution width (RBC) [Ratio] 13.7 % Normal 11.6-14.6 [facility] Comment on above: Performed By: #### L 500.2500, L100.0500 ####[facility] [address] [place], [address] Hematocrit (Bld) [Volume fraction] 41.9 % Normal 40-54 [facility] Comment on above: Performed By: #### L 500.2500, L100.0500 ####[facility] [address] [place], [address] Hemoglobin (Bld) [Mass/Vol] 12.8 g/dL Low 13.0-16.5 [facility] Comment on above: Performed By: #### L 500.2500, L100.0500 ####[facility] [address] [place], [address] MCH (RBC) [Entitic mass] 27.7 pg Normal 27.0-32.0 [facility] Comment on above: Performed By: #### L 500.2500, L100.0500 ####[facility] [address] [place], [address] MCHC (RBC) [Mass/Vol] 30.5 g/dL Low 32-36 [facility] Comment on above: Performed By: #### L 500.2500, L100.0500 ####[facility] [address] [place], [address] MCV (RBC) [Entitic vol] 90.7 fL Normal 80-94 [facility] Comment on above: Performed By: #### L 500.2500, L100.0500 ####[facility] [address] [place], [address] Platelet mean volume (Bld) [Entitic vol] 9.9 fL Normal 6.2-12.0 [facility] Comment on above: Performed By: #### L 500.2500, L100.0500 ####[facility] [address] [place], [address] Platelets (Bld) [#/Vol] 386 10*3/uL Normal 150-450 [facility] Comment on above: Performed By: #### L 500.2500, L100.0500 ####[facility] [address] [place], [address] RBC (Bld) [#/Vol] 4.62 10*6/uL Normal 4.6-6.2 [facility] Comment on above: Performed By: #### L 500.2500, L100.0500 ####[facility] [address] [place], [address] RDW SD 45.7 fl High 35.1-43.9 [facility] Comment on above: Performed By: #### L 500.2500, L100.0500 ####[facility] [address] [place], [address] WBC (Bld) [#/Vol] 10.4 10*3/uL Normal 4.4-11.0 [facility] Comment on above: Performed By: #### L 500.2500, L100.0500 ####[facility] [address] [place], [address] Clostridium difficile detect ion by polymerase chain reactionOrdered By: Lisha Talamantes on 12-18-2024 C. difficile DNA ALEENA+probe Ql (Unsp spec) [facility] Echo, Limited Studyon 2024 Echo, Limited Study Normal [facility] Electrocardiogram reportOrde red By: Brendan Vallejo on 12-18-2024 EKG study [facility] Other Phone: [phone] Limited echocardiogram repor tOrdered By: Milton Guajardo on 12-18-2024 Study report [facility] Work Phone: MR/CON.PCM.NEon 12-18-2024 MR/CON.PCM.NE Normal [facility] 12 Lead EKGon 12-17-2024 12 Lead EKG Normal [facility] Absolute lymphocyte countOrd ered By: Seth Pritchard on 12-17-2024 Lymphocytes Auto (Unsp spec) [#/Vol] 1.03 10*3/uL 0.83-4.51 [facility] Activated partial thrombopla stin time (aPTT) in platelet poor plasma by coagulation aOrdered By: Seth Pritchard on 12-17-2024 aPTT Coag (PPP) [Time] 24.2 s 24.1-36.2 [facility] Anion gap in Serum or Plasma Ordered By: Seth Pritchard on 12-17-2024 Anion gap [Moles/Vol] 13 mmol/L 5-15 [facility] Automated blood erythrocyte countOrdered By: Seth Pritchard on 12-17-2024 RBC (Bld) [#/Vol] 4.45 10*6/uL Low 4.6-6.2 [facility] Comment on above: Performed By: #### L 501.4021, L300.4310, L100.0100, L500.2500, L300.3900 ####[facility] [address] [place], [place], [id number] Automated blood hematocrit ( percentage)Ordered By: Seth Pritchard on 12-17-2024 Hematocrit (Bld) [Volume fraction] 39.6 % Low 40-54 [facility] Comment on above: Performed By: #### L 501.4021, L300.4310, L100.0100, L500.2500, L300.3900 ####[facility] [address] [facility] [place], [place], [id number] Automated lymphocyte count a s percentage of total leukocytesOrdered By: Seth Pritchard on 12-17-2024 Lymphocytes/100 WBC Auto (Unsp spec) 12.1 % Low 19-41 [facility] BUN/creatinine ratioOrdered By: Seth Pritchard on 12-17-2024 Urea nitrogen/Creatinine [Mass ratio] 26.4 mg/mg High 10-20 [facility] Basic Metabolic Profile (BMP )on 12-17-2024 BUN/CRE 26.4 RATIO High 10-20 [facility] Comment on above: Performed By: #### L 501.4021, L300.4310, L100.0100, L500.2500, L300.3900 ####[facility] [address] [place], [address] ECRCL 52.33 ml/min Normal 50-250 [facility] Comment on above: Performed By: #### L 501.4021, L300.4310, L100.0100, L500.2500, L300.3900 ####[facility] [address] [place], [address] GAP 13 Normal 5-15 [facility] Comment on above: Performed By: #### L 501.4021, L300.4310, L100.0100, L500.2500, L300.3900 ####[facility] [address] [place], [address] Potassium [Moles/Vol] 3.6 mmol/L Normal 3.3-5.1 [facility] Comment on above: Performed By: #### L 501.4021, L300.4310, L100.0100, L500.2500, L300.3900 ####[facility] [address] [place], [address] Basophil percentageOrdered B y: Seth Pritchard on 12-17-2024 Basophils/100 WBC (Bld) 1.1 % High 0-1 [facility] Comment on above: Performed By: #### L 501.4021, L300.4310, L100.0100, L500.2500, L300.3900 ####[facility] [address] [place], [address] CBC W/Diff, Automatedon 07-0 Absolute Lymph 1.03 X10 3/uL Normal 0.83-4.51 [facility] Comment on above: Performed By: #### L 501.4021, L300.4310, L100.0100, L500.2500, L300.3900 ####[facility] [address] [place], [address] Absolute Neut 6.6 X10 3/uL Normal 2.0-7.7 [facility] Comment on above: Performed By: #### L 501.4021, L300.4310, L100.0100, L500.2500, L300.3900 ####[facility] [address] [place], [address] IG% 0.400 Normal 0.0-0.9 [facility] Comment on above: Result Comment: IG% - Immature Granulocytes (promyelocytes, myelocytes andmetamyelocytes) > 1% indicates that a LEFT SHIFT is Present. Performed By: #### L 501.4021, L300.4310, L100.0100, L500.2500, L300.3900 ####[facility] [address] [place], [address] Lymphocytes/100 WBC (Bld) 12.1 % Low 19-41 [facility] Comment on above: Performed By: #### L 501.4021, L300.4310, L100.0100, L500.2500, L300.3900 ####[facility] [address] [place], [address] MCHC (RBC) [Mass/Vol] 31.3 g/dL Low 32-36 [facility] Comment on above: Performed By: #### L 501.4021, L300.4310, L100.0100, L500.2500, L300.3900 ####[facility] [address] [place], [address] Nucleated RBC (Bld) [#/Vol] 0 10*3/uL Normal 0-5 [facility] Comment on above: Performed By: #### L 501.4021, L300.4310, L100.0100, L500.2500, L300.3900 ####[facility] [address] [place], [address] Platelet mean volume (Bld) [Entitic vol] 10.0 fL Normal 6.2-12.0 [facility] Comment on above: Performed By: #### L 501.4021, L300.4310, L100.0100, L500.2500, L300.3900 ####[facility] [address] [place], [address] RDW SD 45.6 fl High 35.1-43.9 [facility] Comment on above: Performed By: #### L 501.4021, L300.4310, L100.0100, L500.2500, L300.3900 ####[facility] [address] [place], [address] Carbon dioxide, total [Moles /volume] in Central venous bloodOrdered By: Seth Pritchard on 12-17-2024 CO2 [Moles/Vol] 25.5 mmol/L Normal 21.0-32.0 [facility] Comment on above: Performed By: #### L 501.4021, L300.4310, L100.0100, L500.2500, L300.3900 ####[facility] [address] [place], [address] Chest PA and Lateralon 12-17 Chest PA and Lateral Normal [facility] Chloride assayOrdered By: Bill Pritchard on 12-17-2024 Chloride [Moles/Vol] 104 mmol/L Normal 98-108 [facility] Comment on above: Performed By: #### L 501.4021, L300.4310, L100.0100, L500.2500, L300.3900 ####[facility] [address] [place], [address] Emergency Department Summary on 07-01-2025 Emergency Department Summary Normal [facility] Eosinophil percentageOrdered By: Seth Pritchard on 12-17-2024 Eosinophils/100 WBC (Bld) 1.1 % Normal 0-5 [facility] Comment on above: Performed By: #### L 501.4021, L300.4310, L100.0100, L500.2500, L300.3900 ####[facility] [address] [place], [place], [id number] Erythrocyte distribution wid th ratioOrdered By: Seth Pritchard on 12-17-2024 Erythrocyte distribution width (RBC) [Ratio] 14.0 % Normal 11.6-14.6 [facility] Comment on above: Performed By: #### L 501.4021, L300.4310, L100.0100, L500.2500, L300.3900 ####[facility] [address] [place], [place], [address] Erythrocyte distribution wid th standard deviationOrdered By: Seth Pricthard on 12-17-2024 Erythrocyte distribution width (RBC) [Ratio] 45.6 fl High 35.1-43.9 [facility] Glomerular filtration rate ( GFR) estimation/1.73 sq m using serum, plasma, or whole bOrdered By: Seth Pritchard on 12-17-2024 GFR/1.73 sq M.predicted among non-blacks MDRD (S/P/Bld) [Vol rate/Area] 64 mL/min/{1.73_m2} Normal >60 [facility] Comment on above: Result Comment: mL/m in/1.73m2 CKD-EPI Creatinine Equation (2020) Performed By: #### L 501.4021, L300.4310, L100.0100, L500.2500, L300.3900 ####[facility] [address] [place], [address] H AND P Exam - Hospitaliston 12-17-2024 H&P Exam - Hospitalist Normal [facility] Hemoglobin A1c percentageOrd ered By: Roman Patel on 12-17-2024 HbA1c (Bld) [Mass fraction] 5.9 % High <=5.6 [facility] Comment on above: Result Comment: Norm al < 5.7 % Prediabetic 5.7 - 6.4 % Diabetic >or= 6.5 % Please note range changes. Performed By: #### L 501.9985, L501.9520 ####[facility] [address] [place], [address] Hemoglobin measurementOrdere d By: Seth Pritchard on 12-17-2024 Hemoglobin (Bld) [Mass/Vol] 12.4 g/dL Low 13.0-16.5 [facility] Comment on above: Performed By: #### L 501.4021, L300.4310, L100.0100, L500.2500, L300.3900 ####[facility] [address] [place], [address] Immature granulocytes/100 WB C Auto (Bld)Ordered By: Seth Pritchard on 12-17-2024 Immature granulocytes/100 WBC (Bld) 0.400 % 0.0-0.9 [facility] L499.0042on 12-17-2024 Trop T High Sen 23 ng/L High <=22 [facility] Comment on above: Performed By: #### L 499.0042 ####[facility] [address] [place], [address] L499.0043on 12-17-2024 Trop T High Sen 23 ng/L High <=22 [facility] Comment on above: Performed By: #### L 499.0043 ####[facility] [address] [place], [address] L501.4021on 12-17-2024 Trop T High Sen 27 ng/L High <=22 [facility] Comment on above: Performed By: #### L 501.4021, L300.4310, L100.0100, L500.2500, L300.3900 ####[facility] [address] [place], [place], [phone] MCV (mean corpuscular volume ) determinationOrdered By: Seth Pritchard on 12-17-2024 MCV (RBC) [Entitic vol] 89.0 fL Normal 80-94 [facility] Comment on above: Performed By: #### L 501.4021, L300.4310, L100.0100, L500.2500, L300.3900 ####[facility] [address] [place], [place], [address] Mean corpuscular hemoglobin (MCH) determinationOrdered By: Seth Pritchard on 12-17-2024 MCH (RBC) [Entitic mass] 27.9 pg Normal 27.0-32.0 [facility] Comment on above: Performed By: #### L 501.4021, L300.4310, L100.0100, L500.2500, L300.3900 ####[facility] [address] [place], [place], [address] Monocyte percentageOrdered B y: Seth Pritcahrd on 12-17-2024 Monocytes/100 WBC (Bld) 7.8 % Normal 0-10 [facility] Comment on above: Performed By: #### L 501.4021, L300.4310, L100.0100, L500.2500, L300.3900 ####[facility] [address] [place], [address] Neutrophil percentageOrdered By: Seth Pritchard on 12-17-2024 Neutrophils/100 WBC (Bld) 77.5 % High 47-70 [facility] Comment on above: Performed By: #### L 501.4021, L300.4310, L100.0100, L500.2500, L300.3900 ####[facility] [address] [place], [address] Partial Thromboplast Timeon 12-17-2024 aPTT Coag (Bld) [Time] 24.2 s Normal 24.1-36.2 [facility] Comment on above: Performed By: #### L 501.4021, L300.4310, L100.0100, L500.2500, L300.3900 ####[facility] [address] [place], [address] Platelet countOrdered By: Bill Pritchard on 12-17-2024 Platelets (Bld) [#/Vol] 417 10*3/uL Normal 150-450 [facility] Comment on above: Performed By: #### L 501.4021, L300.4310, L100.0100, L500.2500, L300.3900 ####[facility] [address] [place], [address] Potassium measurement (mass/ volume)Ordered By: Seth Pritchard on 12-17-2024 Potassium (Unsp spec) [Mass/Vol] 3.6 mmol/L 3.3-5.1 [facility] Prothrombin Time w/INRon INR Coag (PPP) [Relative time] 0.9 {INR} Normal [facility] Comment on above: Performed By: #### L 501.4021, L300.4310, L100.0100, L500.2500, L300.3900 ####[facility] [address] [place], [address] Prothrombin timeOrdered By: Seth Pritchard on 12-17-2024 PT Coag (PPP) [Time] 12.8 s Normal 11.7-14.9 [facility] Comment on above: Performed By: #### L 501.4021, L300.4310, L100.0100, L500.2500, L300.3900 ####[facility] [address] [place], [address] STROKE Brain/Head without Co nton 12-17-2024 STROKE Brain/Head without Cont Normal [facility] STROKE CTA Head AND Neck W/C onon 12-17-2024 STROKE CTA Head AND Neck W/Con Normal [facility] Serum creatinine measurement (mass/volume)Ordered By: Seth Pritchard on 12-17-2024 Creatinine [Mass/Vol] 1.18 mg/dL Normal 0.70-1.20 [facility] Comment on above: Performed By: #### L 501.4021, L300.4310, L100.0100, L500.2500, L300.3900 ####[facility] [address] [place], [address] Serum glucose measurement (m ass/volume)Ordered By: Seth Pritchard on 12-17-2024 Glucose [Mass/Vol] 137 mg/dL High 70-99 [facility] Comment on above: Performed By: #### L 501.4021, L300.4310, L100.0100, L500.2500, L300.3900 ####[facility] [address] [place], [address] Serum or plasma calcium luis urement (mass/volume)Ordered By: Seth Pritchard on 12-17-2024 Calcium [Mass/Vol] 9.9 mg/dL Normal 7.6-11.0 [facility] Comment on above: Performed By: #### L 501.4021, L300.4310, L100.0100, L500.2500, L300.3900 ####[facility] [address] [place], [address] Serum or plasma urea nitroge n measurement (mass/volume)Ordered By: Seth Pritchard on 12-17-2024 Urea nitrogen [Mass/Vol] 31 mg/dL High 4-19 [facility] Comment on above: Performed By: #### L 501.4021, L300.4310, L100.0100, L500.2500, L300.3900 ####[facility] [address] [place], [address] Sodium levelOrdered By: Huang Pritchard on 12-17-2024 Sodium [Moles/Vol] 142 mmol/L Normal 133-145 [facility] Comment on above: Performed By: #### L 501.4021, L300.4310, L100.0100, L500.2500, L300.3900 ####[facility] [address] [place], [place], [phone] TSH DL <= 0.005 mIU/L QnOrde red By: Roman Patel on 12-17-2024 TSH Qn 3.380 uIU/mL 0.300-4.200 [facility] Thyroid Stim Hormone (TSH)on 12-17-2024 TSH 3.380 uIU/mL Normal 0.300-4.200 [facility] Comment on above: Performed By: #### L 501.9985, L501.9520 ####[facility] [address] [place], [address] Troponin T.cardiac [Mass/vol ume] in Serum or Plasma by High sensitivity methodOrdered By: Seth Pritchard on 12-17-2024 Troponin T.cardiac High sensitivity method [Mass/Vol] 23 ng/L High <22 [facility] Troponin T.cardiac High sensitivity method [Mass/Vol] 23 ng/L High <22 [facility] Troponin T.cardiac High sensitivity method [Mass/Vol] 27 ng/L High <22 [facility] White blood cell (WBC) count Ordered By: Seth Pritchard on 12-17-2024 WBC (Bld) [#/Vol] 8.5 10*3/uL Normal 4.4-11.0 [facility] Comment on above: Performed By: #### L 501.4021, L300.4310, L100.0100, L500.2500, L300.3900 ####[facility] [address] [place], [place], [id number] Anion gap in Serum or Plasma Ordered By: Lisha Talamantes on 12-16-2024 Anion gap [Moles/Vol] 12 mmol/L 5-15 [facility] BUN/creatinine ratioOrdered By: Lisha Talamantes on 12-16-2024 Urea nitrogen/Creatinine [Mass ratio] 24.5 mg/mg High 10-20 [facility] Basic Metabolic Profile (BMP )on 12-16-2024 BUN/CRE 24.5 RATIO High - [facility] Comment on above: Performed By: #### L 500.2500 ####[facility] [address] [place], [address] Calcium [Mass/Vol] 9.4 mg/dL Normal 7.6-11.0 [facility] Comment on above: Performed By: #### L 500.2500 ####[facility] [address] [place], [address] Chloride [Moles/Vol] 102 mmol/L Normal 98-108 [facility] Comment on above: Performed By: #### L 500.2500 ####[facility] [address] [place], [address] CO2 [Moles/Vol] 25.5 mmol/L Normal 21.0-32.0 [facility] Comment on above: Performed By: #### L 500.2500 ####[facility] [address] [place], [address] Creatinine [Mass/Vol] 1.17 mg/dL Normal 0.70-1.20 [facility] Comment on above: Performed By: #### L 500.2500 ####[facility] [address] [place], [address] ECRCL 52.78 ml/min Normal 50-250 [facility] Comment on above: Performed By: #### L 500.2500 ####[facility] [address] [place], [address] GAP 12 Normal 5-15 [facility] Comment on above: Performed By: #### L 500.2500 ####[facility] [address] [place], [address] GFR/1.73 sq M.predicted among non-blacks MDRD (S/P/Bld) [Vol rate/Area] 65 mL/min/{1.73_m2} Normal >60 [facility] Comment on above: Result Comment: mL/m in/1.73m2 CKD-EPI Creatinine Equation (2020) Performed By: #### L 500.2500 ####[facility] [address] [place], [address] Glucose [Mass/Vol] 108 mg/dL High 70-99 [facility] Comment on above: Performed By: #### L 500.2500 ####[facility] [address] [place], [address] Potassium [Moles/Vol] 3.6 mmol/L Normal 3.3-5.1 [facility] Comment on above: Performed By: #### L 500.2500 ####[facility] [address] [place], [address] Sodium [Moles/Vol] 140 mmol/L Normal 133-145 [facility] Comment on above: Performed By: #### L 500.2500 ####[facility] [address] [place], [address] Urea nitrogen [Mass/Vol] 29 mg/dL High 4-19 [facility] Comment on above: Performed By: #### L 500.2500 ####[facility] [address] [place], [address] Carbon dioxide, total [Moles /volume] in Central venous bloodOrdered By: Lisha Talamantes on 12-16-2024 CO2 [Moles/Vol] 25.5 mmol/L 21.0-32.0 [facility] Chloride assayOrdered By: Sierra Talamantes on 12-16-2024 Chloride [Moles/Vol] 102 mmol/L 98-108 [facility] Culture, Blood (WB)on 2024 CUB Blood cultures x2, from two different sites No growth in 5 days. Normal [facility] Comment on above: Performed By: #### M 200.1000 ####[facility] [address] [place], [place], [id number] Glomerular filtration rate ( GFR) estimation/1.73 sq m using serum, plasma, or whole bOrdered By: Lisha Talamantes on 12-16-2024 GFR/1.73 sq M.predicted among non-blacks MDRD (S/P/Bld) [Vol rate/Area] 65 mL/min/{1.73_m2} >60 [facility] Potassium measurement (mass/ volume)Ordered By: Lisha Talamantes on 12-16-2024 Potassium (Unsp spec) [Mass/Vol] 3.6 mmol/L 3.3-5.1 [facility] Serum creatinine measurement (mass/volume)Ordered By: Lisha Talamantes on 12-16-2024 Creatinine [Mass/Vol] 1.17 mg/dL 0.70-1.20 [facility] Serum glucose measurement (m ass/volume)Ordered By: Lisha Talamantes on 12-16-2024 Glucose [Mass/Vol] 108 mg/dL High 70-99 [facility] Serum or plasma calcium luis urement (mass/volume)Ordered By: Lisha Talamantes on 12-16-2024 Calcium [Mass/Vol] 9.4 mg/dL 7.6-11.0 [facility] Serum or plasma urea nitroge n measurement (mass/volume)Ordered By: Lisha Talamantes on 12-16-2024 Urea nitrogen [Mass/Vol] 29 mg/dL High 4-19 [facility] Sodium levelOrdered By: Cecilia Talamantes on 12-16-2024 Sodium [Moles/Vol] 140 mmol/L 133-145 [facility] Absolute lymphocyte countOrd ered By: Lisha Talamantes on 12-15-2024 Lymphocytes Auto (Unsp spec) [#/Vol] 0.82 10*3/uL Low 0.83-4.51 [facility] Automated lymphocyte count a s percentage of total leukocytesOrdered By: Lisha Talamantes on 12-15-2024 Lymphocytes/100 WBC Auto (Unsp spec) 9.8 % Low 19-41 [facility] Basic Metabolic Profile (BMP )on 12-15-2024 BUN/CRE 20.1 RATIO High 10-20 [facility] Comment on above: Performed By: #### L 501.2300, L500.2500, L100.0100, L501.5200 ####[facility] [address] [place], [address] Calcium [Mass/Vol] 9.3 mg/dL Normal 7.6-11.0 [facility] Comment on above: Performed By: #### L 501.2300, L500.2500, L100.0100, L501.5200 ####[facility] [address] [place], [address] Chloride [Moles/Vol] 106 mmol/L Normal 98-108 [facility] Comment on above: Performed By: #### L 501.2300, L500.2500, L100.0100, L501.5200 ####[facility] [address] [place], [address] CO2 [Moles/Vol] 24.0 mmol/L Normal 21.0-32.0 [facility] Comment on above: Performed By: #### L 501.2300, L500.2500, L100.0100, L501.5200 ####[facility] [address] [place], [address] Creatinine [Mass/Vol] 1.10 mg/dL Normal 0.70-1.20 [facility] Comment on above: Performed By: #### L 501.2300, L500.2500, L100.0100, L501.5200 ####[facility] [address] [place], [address] ECRCL 56.14 ml/min Normal 50-250 [facility] Comment on above: Performed By: #### L 501.2300, L500.2500, L100.0100, L501.5200 ####[facility] [address] [place], [address] GAP 12 Normal 5-15 [facility] Comment on above: Performed By: #### L 501.2300, L500.2500, L100.0100, L501.5200 ####[facility] [address] [place], [address] GFR/1.73 sq M.predicted among non-blacks MDRD (S/P/Bld) [Vol rate/Area] 70 mL/min/{1.73_m2} Normal >60 [facility] Comment on above: Result Comment: mL/m in/1.73m2 CKD-EPI Creatinine Equation (2020) Performed By: #### L 501.2300, L500.2500, L100.0100, L501.5200 ####[facility] [address] [place], [address] Glucose [Mass/Vol] 97 mg/dL Normal 70-99 [facility] Comment on above: Performed By: #### L 501.2300, L500.2500, L100.0100, L501.5200 ####[facility] [address] [place], [address] Potassium [Moles/Vol] 4.1 mmol/L Normal 3.3-5.1 [facility] Comment on above: Performed By: #### L 501.2300, L500.2500, L100.0100, L501.5200 ####[facility] [address] [place], [address] Sodium [Moles/Vol] 142 mmol/L Normal 133-145 [facility] Comment on above: Performed By: #### L 501.2300, L500.2500, L100.0100, L501.5200 ####[facility] [address] [place], [address] Urea nitrogen [Mass/Vol] 22 mg/dL High 4-19 [facility] Comment on above: Performed By: #### L 501.2300, L500.2500, L100.0100, L501.5200 ####[facility] [address] [place], [address] Basophil percentageOrdered B y: Lisha Talamantes on 12-15-2024 Basophils/100 WBC (Bld) 0.2 % 0-1 [facility] CBC W/Diff, Automatedon 11-18 Absolute Lymph 0.82 X10 3/uL Low 0.83-4.51 [facility] Comment on above: Performed By: #### L 501.2300, L500.2500, L100.0100, L501.5200 ####[facility] [address] [place], [address] Absolute Neut 7.0 X10 3/uL Normal 2.0-7.7 [facility] Comment on above: Performed By: #### L 501.2300, L500.2500, L100.0100, L501.5200 ####[facility] [address] [place], [address] Basophils/100 WBC (Bld) 0.2 % Normal 0-1 [facility] Comment on above: Performed By: #### L 501.2300, L500.2500, L100.0100, L501.5200 ####[facility] [address] [place], [address] Eosinophils/100 WBC (Bld) 0.0 % Normal 0-5 [facility] Comment on above: Performed By: #### L 501.2300, L500.2500, L100.0100, L501.5200 ####[facility] [address] [place], [address] Erythrocyte distribution width (RBC) [Ratio] 13.8 % Normal 11.6-14.6 [facility] Comment on above: Performed By: #### L 501.2300, L500.2500, L100.0100, L501.5200 ####[facility] [address] [place], [address] Hematocrit (Bld) [Volume fraction] 35.6 % Low 40-54 [facility] Comment on above: Performed By: #### L 501.2300, L500.2500, L100.0100, L501.5200 ####[facility] [address] [place], [address] Hemoglobin (Bld) [Mass/Vol] 11.3 g/dL Low 13.0-16.5 [facility] Comment on above: Performed By: #### L 501.2300, L500.2500, L100.0100, L501.5200 ####[facility] [address] [place], [address] IG% 0.400 Normal 0.0-0.9 [facility] Comment on above: Result Comment: IG% - Immature Granulocytes (promyelocytes, myelocytes andmetamyelocytes) > 1% indicates that a LEFT SHIFT is Present. Performed By: #### L 501.2300, L500.2500, L100.0100, L501.5200 ####[facility] [address] [place], [address] Lymphocytes/100 WBC (Bld) 9.8 % Low 19-41 [facility] Comment on above: Performed By: #### L 501.2300, L500.2500, L100.0100, L501.5200 ####[facility] [address] [place], [address] MCH (RBC) [Entitic mass] 28.2 pg Normal 27.0-32.0 [facility] Comment on above: Performed By: #### L 501.2300, L500.2500, L100.0100, L501.5200 ####[facility] [address] [place], [address] MCHC (RBC) [Mass/Vol] 31.7 g/dL Low 32-36 [facility] Comment on above: Performed By: #### L 501.2300, L500.2500, L100.0100, L501.5200 ####[facility] [address] [place], [address] MCV (RBC) [Entitic vol] 88.8 fL Normal 80-94 [facility] Comment on above: Performed By: #### L 501.2300, L500.2500, L100.0100, L501.5200 ####[facility] [address] [place], [address] Monocytes/100 WBC (Bld) 6.3 % Normal 0-10 [facility] Comment on above: Performed By: #### L 501.2300, L500.2500, L100.0100, L501.5200 ####[facility] [address] [place], [address] Neutrophils/100 WBC (Bld) 83.3 % High 47-70 [facility] Comment on above: Performed By: #### L 501.2300, L500.2500, L100.0100, L501.5200 ####[facility] [address] [place], [address] Nucleated RBC (Bld) [#/Vol] 0 10*3/uL Normal 0-5 [facility] Comment on above: Performed By: #### L 501.2300, L500.2500, L100.0100, L501.5200 ####[facility] [address] [place], [address] Platelet mean volume (Bld) [Entitic vol] 10.0 fL Normal 6.2-12.0 [facility] Comment on above: Performed By: #### L 501.2300, L500.2500, L100.0100, L501.5200 ####[facility] [address] [place], [address] Platelets (Bld) [#/Vol] 329 10*3/uL Normal 150-450 [facility] Comment on above: Performed By: #### L 501.2300, L500.2500, L100.0100, L501.5200 ####[facility] [address] [place], [address] RBC (Bld) [#/Vol] 4.01 10*6/uL Low 4.6-6.2 [facility] Comment on above: Performed By: #### L 501.2300, L500.2500, L100.0100, L501.5200 ####[facility] [address] [place], [address] RDW SD 44.9 fl High 35.1-43.9 [facility] Comment on above: Performed By: #### L 501.2300, L500.2500, L100.0100, L501.5200 ####[facility] [address] [place], [address] WBC (Bld) [#/Vol] 8.4 10*3/uL Normal 4.4-11.0 [facility] Comment on above: Performed By: #### L 501.2300, L500.2500, L100.0100, L501.5200 ####[facility] [address] [place], [address] Eosinophil percentageOrdered By: Lisha Talamantes on 12-15-2024 Eosinophils/100 WBC (Bld) 0.0 % 0-5 [facility] Erythrocyte distribution wid th ratioOrdered By: Lisha Talamantes on 12-15-2024 Erythrocyte distribution width (RBC) [Ratio] 13.8 % 11.6-14.6 [facility] Erythrocyte distribution wid th standard deviationOrdered By: Lisha Talamantes on 12-15-2024 Erythrocyte distribution width (RBC) [Ratio] 44.9 fl High 35.1-43.9 [facility] Hematocrit Auto (Bld) [Volum e fraction]Ordered By: Lisha Talamantes on 12-15-2024 Hematocrit (Bld) [Volume fraction] 35.6 % Low 40-54 [facility] Hemoglobin measurementOrdere d By: Lisha Talamantes on 12-15-2024 Hemoglobin (Bld) [Mass/Vol] 11.3 g/dL Low 13.0-16.5 [facility] Immature granulocytes/100 WB C Auto (Bld)Ordered By: Lisha Talamantes on 12-15-2024 Immature granulocytes/100 WBC (Bld) 0.400 % 0.0-0.9 [facility] MCV (mean corpuscular volume ) determinationOrdered By: Lisha Talamantes on 12-15-2024 MCV (RBC) [Entitic vol] 88.8 fL 80-94 [facility] Magnesiumon 12-15-2024 Magnesium [Mass/Vol] 2.0 mg/dL Normal 1.5-2.2 [facility] Comment on above: Performed By: #### L 501.2300, L500.2500, L100.0100, L501.5200 ####[facility] [address] [place], [place], [id number] Magnesium measurement (mass/ volume)Ordered By: Lisha Talamantes on 12-15-2024 Magnesium (Unsp spec) [Mass/Vol] 2.0 mg/dL 1.5-2.2 [facility] Mean corpuscular hemoglobin (MCH) determinationOrdered By: Lisha Talamantes on 12-15-2024 MCH (RBC) [Entitic mass] 28.2 pg 27.0-32.0 [facility] Monocyte percentageOrdered B y: Lisha Talamantes on 12-15-2024 Monocytes/100 WBC (Bld) 6.3 % 0-10 [facility] Neutrophil percentageOrdered By: Lisha Talamantes on 12-15-2024 Neutrophils/100 WBC (Bld) 83.3 % High 47-70 [facility] Phosphoruson 12-15-2024 Phosphate [Mass/Vol] 3.3 mg/dL Normal 2.7-4.5 [facility] Comment on above: Performed By: #### L 501.2300, L500.2500, L100.0100, L501.5200 ####[facility] [address] [place], [address] Platelet countOrdered By: Sierra Talamantes on 12-15-2024 Platelets (Bld) [#/Vol] 329 10*3/uL 150-450 [facility] RBC Auto (Bld) [#/Vol]Ordere d By: Lisha Talamantes on 12-15-2024 RBC (Bld) [#/Vol] 4.01 10*6/uL Low 4.6-6.2 [facility] White blood cell (WBC) count Ordered By: Lisha Talamantes on 12-15-2024 WBC (Bld) [#/Vol] 8.4 10*3/uL 4.4-11.0 [facility] Bilirubin, totalOrdered By: Shilpa Contreras on 12-14-2024 Bilirubin [Mass/Vol] mg/dL 0.00-1.30 [facility] CBC W/Diff, Automatedon 11-18 Absolute Lymph 0.65 X10 3/uL Low 0.83-4.51 [facility] Comment on above: Performed By: #### L 100.0100, L500.4050, L300.3900 ####[facility] [address] [place], [address] Absolute Neut 3.4 X10 3/uL Normal 2.0-7.7 [facility] Comment on above: Performed By: #### L 100.0100, L500.4050, L300.3900 ####[facility] [address] [place], [address] Basophils/100 WBC (Bld) 0.2 % Normal 0-1 [facility] Comment on above: Performed By: #### L 100.0100, L500.4050, L300.3900 ####[facility] [address] [place], [address] Eosinophils/100 WBC (Bld) 0.0 % Normal 0-5 [facility] Comment on above: Performed By: #### L 100.0100, L500.4050, L300.3900 ####[facility] [address] [place], [address] Erythrocyte distribution width (RBC) [Ratio] 13.7 % Normal 11.6-14.6 [facility] Comment on above: Performed By: #### L 100.0100, L500.4050, L300.3900 ####[facility] [address] [place], [address] Hematocrit (Bld) [Volume fraction] 33.7 % Low 40-54 [facility] Comment on above: Performed By: #### L 100.0100, L500.4050, L300.3900 ####[facility] [address] [place], [address] Hemoglobin (Bld) [Mass/Vol] 10.6 g/dL Low 13.0-16.5 [facility] Comment on above: Performed By: #### L 100.0100, L500.4050, L300.3900 ####[facility] [address] [place], [address] IG% 0.200 Normal 0.0-0.9 [facility] Comment on above: Result Comment: IG% - Immature Granulocytes (promyelocytes, myelocytes andmetamyelocytes) > 1% indicates that a LEFT SHIFT is Present. Performed By: #### L 100.0100, L500.4050, L300.3900 ####[facility] [address] [place], [address] Lymphocytes/100 WBC (Bld) 15.0 % Low 19-41 [facility] Comment on above: Performed By: #### L 100.0100, L500.4050, L300.3900 ####[facility] [address] [place], [address] MCH (RBC) [Entitic mass] 27.8 pg Normal 27.0-32.0 [facility] Comment on above: Performed By: #### L 100.0100, L500.4050, L300.3900 ####[facility] [address] [place], [address] MCHC (RBC) [Mass/Vol] 31.5 g/dL Low 32-36 [facility] Comment on above: Performed By: #### L 100.0100, L500.4050, L300.3900 ####[facility] [address] [place], [address] MCV (RBC) [Entitic vol] 88.5 fL Normal 80-94 [facility] Comment on above: Performed By: #### L 100.0100, L500.4050, L300.3900 ####[facility] [address] [place], [address] Monocytes/100 WBC (Bld) 5.3 % Normal 0-10 [facility] Comment on above: Performed By: #### L 100.0100, L500.4050, L300.3900 ####[facility] [address] [place], [address] Neutrophils/100 WBC (Bld) 79.3 % High 47-70 [facility] Comment on above: Performed By: #### L 100.0100, L500.4050, L300.3900 ####[facility] [address] [place], [address] Nucleated RBC (Bld) [#/Vol] 0 10*3/uL Normal 0-5 [facility] Comment on above: Performed By: #### L 100.0100, L500.4050, L300.3900 ####[facility] [address] [place], [address] Platelet mean volume (Bld) [Entitic vol] 10.1 fL Normal 6.2-12.0 [facility] Comment on above: Performed By: #### L 100.0100, L500.4050, L300.3900 ####[facility] [address] [place], [address] Platelets (Bld) [#/Vol] 306 10*3/uL Normal 150-450 [facility] Comment on above: Performed By: #### L 100.0100, L500.4050, L300.3900 ####[facility] [address] [place], [address] RBC (Bld) [#/Vol] 3.81 10*6/uL Low 4.6-6.2 [facility] Comment on above: Performed By: #### L 100.0100, L500.4050, L300.3900 ####[facility] [address] [place], [address] RDW SD 44.5 fl High 35.1-43.9 [facility] Comment on above: Performed By: #### L 100.0100, L500.4050, L300.3900 ####[facility] [address] [place], [address] WBC (Bld) [#/Vol] 4.3 10*3/uL Low 4.4-11.0 [facility] Comment on above: Performed By: #### L 100.0100, L500.4050, L300.3900 ####[facility] [address] [place], [address] Comprehensive Metabolic Prof ilon 12-14-2024 ALK PHOS 70 U/L Normal 40-129 [facility] Comment on above: Performed By: #### L 100.0100, L500.4050, L300.3900 ####[facility] [address] [place], [address] AST [Catalytic activity/Vol] 18 U/L Normal <=37 [facility] Comment on above: Performed By: #### L 100.0100, L500.4050, L300.3900 ####[facility] [address] [place], [address] BUN/CRE 12.3 RATIO Normal 10-20 [facility] Comment on above: Performed By: #### L 100.0100, L500.4050, L300.3900 ####[facility] [address] [place], [address] Calcium [Mass/Vol] 9.5 mg/dL Normal 7.6-11.0 [facility] Comment on above: Performed By: #### L 100.0100, L500.4050, L300.3900 ####[facility] [address] [place], [address] Chloride [Moles/Vol] 105 mmol/L Normal 98-108 [facility] Comment on above: Performed By: #### L 100.0100, L500.4050, L300.3900 ####[facility] [address] [place], [address] CO2 [Moles/Vol] 24.4 mmol/L Normal 21.0-32.0 [facility] Comment on above: Performed By: #### L 100.0100, L500.4050, L300.3900 ####[facility] [address] [place], [address] Creatinine [Mass/Vol] 1.04 mg/dL Normal 0.70-1.20 [facility] Comment on above: Performed By: #### L 100.0100, L500.4050, L300.3900 ####[facility] [address] [place], [address] ECRCL 59.38 ml/min Normal 50-250 [facility] Comment on above: Performed By: #### L 100.0100, L500.4050, L300.3900 ####[facility] [address] [place], [address] GAP 13 Normal 5-15 [facility] Comment on above: Performed By: #### L 100.0100, L500.4050, L300.3900 ####[facility] [address] [place], [address] GFR/1.73 sq M.predicted among non-blacks MDRD (S/P/Bld) [Vol rate/Area] 75 mL/min/{1.73_m2} Normal >60 [facility] Comment on above: Result Comment: mL/m in/1.73m2 CKD-EPI Creatinine Equation (2020) Performed By: #### L 100.0100, L500.4050, L300.3900 ####[facility] [address] [place], [address] Glucose [Mass/Vol] 129 mg/dL High 70-99 [facility] Comment on above: Performed By: #### L 100.0100, L500.4050, L300.3900 ####[facility] [address] [place], [address] Potassium [Moles/Vol] 3.8 mmol/L Normal 3.3-5.1 [facility] Comment on above: Performed By: #### L 100.0100, L500.4050, L300.3900 ####[facility] [address] [place], [address] Sodium [Moles/Vol] 143 mmol/L Normal 133-145 [facility] Comment on above: Performed By: #### L 100.0100, L500.4050, L300.3900 ####[facility] [address] [place], [address] T BILI < 0.15 Normal 0.00-1.30 [facility] Comment on above: Performed By: #### L 100.0100, L500.4050, L300.3900 ####[facility] [address] [place], [address] T PROT 6.6 g/dL Normal 5.9-8.4 [facility] Comment on above: Performed By: #### L 100.0100, L500.4050, L300.3900 ####[facility] [address] [place], [address] Urea nitrogen [Mass/Vol] 13 mg/dL Normal 4-19 [facility] Comment on above: Performed By: #### L 100.0100, L500.4050, L300.3900 ####[facility] [address] [place], [address] No Panel InformationOrdered By: Shilpa Contreras on 12-14-2024 18 U/L <38 [facility] Prothrombin Time w/INRon INR Coag (PPP) [Relative time] 1.0 {INR} Normal [facility] Comment on above: Performed By: #### L 100.0100, L500.4050, L300.3900 ####[facility] [address] [place], [address] PT Coag (PPP) [Time] 13.5 s Normal 11.7-14.9 [facility] Comment on above: Performed By: #### L 100.0100, L500.4050, L300.3900 ####[facility] [address] [place], [address] Prothrombin timeOrdered By: Shilpa Contreras on 12-14-2024 PT Coag (PPP) [Time] 13.5 s 11.7-14.9 [facility] RESPIRATORY PANEL MOLECULARo n 12-14-2024 RP PANEL Normal [facility] Comment on above: Performed By: #### M 100.638 ####[facility] [address] [place], [address] Serum globulin measurementOr dered By: Shilpa Contreras on 12-14-2024 Globulin (S) [Mass/Vol] 2.5 g/dL Normal 2.2-4.2 [facility] Comment on above: Performed By: #### L 100.0100, L500.4050, L300.3900 ####[facility] [address] [place], [address] Serum or plasma alanine saul otransferase (ALT) measurementOrdered By: Shilpa Contreras on 12-14-2024 ALT [Catalytic activity/Vol] 16 U/L Normal <=46 [facility] Comment on above: Performed By: #### L 100.0100, L500.4050, L300.3900 ####[facility] [address] [place], [address] Serum or plasma albumin luis urement (mass/volume)Ordered By: Shilpa Contreras on 12-14-2024 Albumin [Mass/Vol] 4.0 g/dL Normal 3.4-4.8 [facility] Comment on above: Performed By: #### L 100.0100, L500.4050, L300.3900 ####[facility] [address] [place], [address] Serum or plasma albumin/glob ulin mass ratioOrdered By: Shilpa Ben on 12-14-2024 Albumin/Globulin [Mass ratio] 1.6 {ratio} Normal 0.9-2.4 [facility] Comment on above: Performed By: #### L 100.0100, L500.4050, L300.3900 ####[facility] [address] [place], [address] Serum or plasma alkaline kathleen sphatase measurementOrdered By: Shilpa Ben on 12-14-2024 ALP [Catalytic activity/Vol] 70 U/L 40-129 [facility] Total proteinOrdered By: Roverto donovan Contreras on 12-14-2024 Protein [Mass/Vol] 6.6 g/dL 5.9-8.4 [facility] Absolute lymphocyte countOrd ered By: Remus Ungkevin on 12-13-2024 Lymphocytes Auto (Unsp spec) [#/Vol] 1.16 10*3/uL 0.83-4.51 [facility] Absolute neutrophil countOrd ered By: Remus Ungur on 12-13-2024 Neutrophils (Bld) [#/Vol] 4.0 10*3/uL 2.0-7.7 [facility] Anion gap in Serum or Plasma Ordered By: Remus Aaron on 12-13-2024 Anion gap [Moles/Vol] 13 mmol/L 5-15 [facility] Automated lymphocyte count a s percentage of total leukocytesOrdered By: Remus Walker on 12-13-2024 Lymphocytes/100 WBC Auto (Unsp spec) 19.5 % 19-41 [facility] BUN/creatinine ratioOrdered By: Charis Walker on 12-13-2024 Urea nitrogen/Creatinine [Mass ratio] 11.0 mg/mg 10-20 [facility] Basic Metabolic Profile (BMP )on 12-13-2024 BUN/CRE 11.0 RATIO Normal -20 [facility] Comment on above: Performed By: #### L 500.2500, L100.0100 ####[facility] [address] [place], [address] Calcium [Mass/Vol] 9.7 mg/dL Normal 7.6-11.0 [facility] Comment on above: Performed By: #### L 500.2500, L100.0100 ####[facility] [address] [place], [address] Chloride [Moles/Vol] 104 mmol/L Normal 98-108 [facility] Comment on above: Performed By: #### L 500.2500, L100.0100 ####[facility] [address] [place], [address] CO2 [Moles/Vol] 24.4 mmol/L Normal 21.0-32.0 [facility] Comment on above: Performed By: #### L 500.2500, L100.0100 ####[facility] [address] [place], [address] Creatinine [Mass/Vol] 1.11 mg/dL Normal 0.70-1.20 [facility] Comment on above: Performed By: #### L 500.2500, L100.0100 ####[facility] [address] [place], [address] ECRCL 55.63 ml/min Normal 50-250 [facility] Comment on above: Performed By: #### L 500.2500, L100.0100 ####[facility] [address] [place], [address] GAP 13 Normal 5-15 [facility] Comment on above: Performed By: #### L 500.2500, L100.0100 ####[facility] [address] [place], [address] GFR/1.73 sq M.predicted among non-blacks MDRD (S/P/Bld) [Vol rate/Area] 69 mL/min/{1.73_m2} Normal >60 [facility] Comment on above: Result Comment: mL/m in/1.73m2 CKD-EPI Creatinine Equation (2020) Performed By: #### L 500.2500, L100.0100 ####[facility] [address] [place], [address] Glucose [Mass/Vol] 102 mg/dL High 70-99 [facility] Comment on above: Performed By: #### L 500.2500, L100.0100 ####[facility] [address] [place], [address] Potassium [Moles/Vol] 3.7 mmol/L Normal 3.3-5.1 [facility] Comment on above: Performed By: #### L 500.2500, L100.0100 ####[facility] [address] [place], [address] Sodium [Moles/Vol] 141 mmol/L Normal 133-145 [facility] Comment on above: Performed By: #### L 500.2500, L100.0100 ####[facility] [address] [place], [address] Urea nitrogen [Mass/Vol] 12 mg/dL Normal 4-19 [facility] Comment on above: Performed By: #### L 500.2500, L100.0100 ####[facility] [address] [place], [address] Basophil percentageOrdered B y: Remus Ungur on 12-13-2024 Basophils/100 WBC (Bld) 1.0 % 0-1 [facility] Blood cultureOrdered By: Rem us Ungur on 12-13-2024 Bacteria identified Cx Nom (Bld) No growth in 5 days. [facility] Bacteria identified Cx Nom (Bld) No growth in 5 days. [facility] CBC W/Diff, Automatedon - Absolute Lymph 1.16 X10 3/uL Normal 0.83-4.51 [facility] Comment on above: Performed By: #### L 500.2500, L100.0100 ####[facility] [address] [place], [address] Absolute Neut 4.0 X10 3/uL Normal 2.0-7.7 [facility] Comment on above: Performed By: #### L 500.2500, L100.0100 ####[facility] [address] [place], [address] Basophils/100 WBC (Bld) 1.0 % Normal 0-1 [facility] Comment on above: Performed By: #### L 500.2500, L100.0100 ####[facility] [address] [place], [address] Eosinophils/100 WBC (Bld) 3.0 % Normal 0-5 [facility] Comment on above: Performed By: #### L 500.2500, L100.0100 ####[facility] [address] [place], [address] Erythrocyte distribution width (RBC) [Ratio] 13.7 % Normal 11.6-14.6 [facility] Comment on above: Performed By: #### L 500.2500, L100.0100 ####[facility] [address] [place], [address] Hematocrit (Bld) [Volume fraction] 37.5 % Low 40-54 [facility] Comment on above: Performed By: #### L 500.2500, L100.0100 ####[facility] [address] [place], [address] Hemoglobin (Bld) [Mass/Vol] 11.5 g/dL Low 13.0-16.5 [facility] Comment on above: Performed By: #### L 500.2500, L100.0100 ####[facility] [address] [place], [address] IG% 0.300 Normal 0.0-0.9 [facility] Comment on above: Result Comment: IG% - Immature Granulocytes (promyelocytes, myelocytes andmetamyelocytes) > 1% indicates that a LEFT SHIFT is Present. Performed By: #### L 500.2500, L100.0100 ####[facility] [address] [place], [address] Lymphocytes/100 WBC (Bld) 19.5 % Normal 19-41 [facility] Comment on above: Performed By: #### L 500.2500, L100.0100 ####[facility] [address] [place], [address] MCH (RBC) [Entitic mass] 27.7 pg Normal 27.0-32.0 [facility] Comment on above: Performed By: #### L 500.2500, L100.0100 ####[facility] [address] [place], [address] MCHC (RBC) [Mass/Vol] 30.7 g/dL Low 32-36 [facility] Comment on above: Performed By: #### L 500.2500, L100.0100 ####[facility] [address] [place], [address] MCV (RBC) [Entitic vol] 90.4 fL Normal 80-94 [facility] Comment on above: Performed By: #### L 500.2500, L100.0100 ####[facility] [address] [place], [address] Monocytes/100 WBC (Bld) 8.9 % Normal 0-10 [facility] Comment on above: Performed By: #### L 500.2500, L100.0100 ####[facility] [address] [place], [address] Neutrophils/100 WBC (Bld) 67.3 % Normal 47-70 [facility] Comment on above: Performed By: #### L 500.2500, L100.0100 ####[facility] [address] [place], [address] Nucleated RBC (Bld) [#/Vol] 0 10*3/uL Normal 0-5 [facility] Comment on above: Performed By: #### L 500.2500, L100.0100 ####[facility] [address] [place], [address] Platelet mean volume (Bld) [Entitic vol] 9.7 fL Normal 6.2-12.0 [facility] Comment on above: Performed By: #### L 500.2500, L100.0100 ####[facility] [address] [place], [address] Platelets (Bld) [#/Vol] 299 10*3/uL Normal 150-450 [facility] Comment on above: Performed By: #### L 500.2500, L100.0100 ####[facility] [address] [place], [address] RBC (Bld) [#/Vol] 4.15 10*6/uL Low 4.6-6.2 [facility] Comment on above: Performed By: #### L 500.2500, L100.0100 ####[facility] [address] [place], [address] RDW SD 44.8 fl High 35.1-43.9 [facility] Comment on above: Performed By: #### L 500.2500, L100.0100 ####[facility] [address] [place], [address] WBC (Bld) [#/Vol] 5.9 10*3/uL Normal 4.4-11.0 [facility] Comment on above: Performed By: #### L 500.2500, L100.0100 ####[facility] [address] [place], [address] CO2 (BldV) [Moles/Vol]Ordere d By: Shilpa Contreras on 12-13-2024 CO2 [Moles/Vol] 28 mmol/L 23-33 [facility] Carbon dioxide, total [Moles /volume] in Central venous bloodOrdered By: Charis Walker on 12-13-2024 CO2 [Moles/Vol] 24.4 mmol/L 21.0-32.0 [facility] Chest 1 View (Portable)on Chest 1 View (Portable) Normal [facility] Chloride assayOrdered By: Ame Walker on 12-13-2024 Chloride [Moles/Vol] 104 mmol/L 98-108 [facility] Summary on 12-13-2024 Emergency Department Summary Normal [facility] Eosinophil percentageOrdered By: Charis Walker on 12-13-2024 Eosinophils/100 WBC (Bld) 3.0 % 0-5 [facility] Erythrocyte distribution wid th ratioOrdered By: Charis Walker on 12-13-2024 Erythrocyte distribution width (RBC) [Ratio] 13.7 % 11.6-14.6 [facility] Erythrocyte distribution wid th standard deviationOrdered By: Charis Walker on 12-13-2024 Erythrocyte distribution width (RBC) [Ratio] 44.8 fl High 35.1-43.9 [facility] Glomerular filtration rate ( GFR) estimation/1.73 sq m using serum, plasma, or whole bOrdered By: Charis Walker on 12-13-2024 GFR/1.73 sq M.predicted among non-blacks MDRD (S/P/Bld) [Vol rate/Area] 69 mL/min/{1.73_m2} >60 [facility] Comment on above: mL/min/1.73m2 CKD-EP I Creatinine Equation (2020) H AND P Exam - [facility] 12-13-2024 H&P Exam - Hospitalist Normal [facility] Hematocrit Auto (Bld) [Volum e fraction]Ordered By: Charis Walker on 12-13-2024 Hematocrit (Bld) [Volume fraction] 37.5 % Low 40-54 [facility] Hemoglobin measurementOrdere d By: Charis Walker on 12-13-2024 Hemoglobin (Bld) [Mass/Vol] 11.5 g/dL Low 13.0-16.5 [facility] Immature granulocytes/100 WB C Auto (Bld)Ordered By: Charis Walker on 12-13-2024 Immature granulocytes/100 WBC (Bld) 0.300 % 0.0-0.9 [facility] Comment on above: IG% - Immature Granu locytes (promyelocytes, myelocytes and metamyelocytes) > 1% indicates that a LEFT SHIFT is Present. Influenza virus A and B and SARS-CoV-2 (COVID-19) and Respiratory syncytial virus RNAOrdered By: Charis Walker on 12-13-2024 SARS-CoV-2 (COVID-19) RNA ALEENA+probe Ql (Unsp spec) [facility] International normalized rat io (INR) calculationOrdered By: Charis Walker on 12-13-2024 INR Coag (Bld) [Relative time] 0.9 {INR} [facility] L509.7001on 12-13-2024 Procalcitonin 0.05 ng/mL Normal <=0.10 [facility] Comment on above: Result Comment: Inte rpretation:<0.10-0.25 ng/mL: Antibiotic therapy discouraged. Bacterialinfection unlikely.0.25-0.50 ng/mL: Antibiotic therapy encouraged. Bacterialinfection possible.>0.50 ng/mL: Antibiotic therapy strongly encouraged.Suggestive of presence of bacterial infection.PCT should always be interpreted in the clinical context ofthe patient. Therefore, clinicians should use the PCTresults in conjunction with other laboratory findings andclinical signs of the patient. Performed By: #### L 509.7001 ####[facility] [address] [place], [address] M100.678on 12-13-2024 M100.678 Pending SARS-CoV-2 (COVID 19) Negative INFLUENZA A Negative INFLUENZA B Negative RSV PCR Negative Normal [facility] Comment on above: Performed By: #### M 100.678 ####[facility] [address] [place], [address] MCV (mean corpuscular volume ) determinationOrdered By: Charis Walker on 12-13-2024 MCV (RBC) [Entitic vol] 90.4 fL 80-94 [facility] Mean corpuscular hemoglobin (MCH) determinationOrdered By: Charis Walker on 12-13-2024 MCH (RBC) [Entitic mass] 27.7 pg 27.0-32.0 [facility] Mean corpuscular hemoglobin concentration (MCHC) determinationOrdered By: Charis Walker on 12-13-2024 MCHC (RBC) [Mass/Vol] 30.7 g/dL Low 32-36 [facility] Mean platelet volume determi nationOrdered By: Charis Walker on 12-13-2024 Platelet mean volume (Bld) [Entitic vol] 9.7 fL 6.2-12.0 [facility] Monocyte percentageOrdered B y: Charis Walker on 12-13-2024 Monocytes/100 WBC (Bld) 8.9 % 0-10 [facility] Neutrophil percentageOrdered By: Charis Walker on 12-13-2024 Neutrophils/100 WBC (Bld) 67.3 % 47-70 [facility] No Panel InformationOrdered By: Shilpa Contreras on 12-13-2024 Blood Gas Sample Site Not entered [facility] Blood Gas Specimen Type LASHAE [facility] Oxygen Delivery Device Cannula [facility] LASHAE [facility] Not entered [facility] Cannula [facility] Nucleated red blood cell per centageOrdered By: Charis Walker on 12-13-2024 Nucleated RBC/100 WBC (Bld) [Ratio] 0 % 0-5 [facility] Platelet countOrdered By: Ame Walker on 12-13-2024 Platelets (Bld) [#/Vol] 299 10*3/uL 150-450 [facility] Potassium measurement (mass/ volume)Ordered By: Charis Walker on 12-13-2024 Potassium (Unsp spec) [Mass/Vol] 3.7 mmol/L 3.3-5.1 [facility] Procalcitonin [Mass/volume] in Serum or Plasma by ImmunoassayOrdered By: Shilpa Contreras on 12-13-2024 Procalcitonin IA [Mass/Vol] 0.05 ng/mL <0.11 [facility] Prothrombin Time w/INRon INR Coag (PPP) [Relative time] 0.9 {INR} Normal [facility] Comment on above: Performed By: #### L 416.5730 ####[facility] [address] [place], [place], [address] PT Coag (PPP) [Time] 12.5 s Normal 11.7-14.9 [facility] Comment on above: Performed By: #### L 300.3900 ####[facility] [address] [place], [place], [id number] Prothrombin timeOrdered By: Charis Walker on 12-13-2024 PT Coag (PPP) [Time] 12.5 s 11.7-14.9 [facility] RBC Auto (Bld) [#/Vol]Ordere d By: Charis Walker on 12-13-2024 RBC (Bld) [#/Vol] 4.15 10*6/uL Low 4.6-6.2 [facility] Respiratory pathogens detect ion panel by molecular detection methodOrdered By: Shilpa Contreras on 12-13-2024 Respiratory pathogens DNA and RNA panel ALEENA+probe (Resp) [facility] Serum creatinine measurement (mass/volume)Ordered By: Charis Walker on 12-13-2024 Creatinine [Mass/Vol] 1.11 mg/dL 0.70-1.20 [facility] Serum glucose measurement (m ass/volume)Ordered By: Charis Walker on 12-13-2024 Glucose [Mass/Vol] 102 mg/dL High 70-99 [facility] Serum or plasma calcium luis urement (mass/volume)Ordered By: [facility]red Healthcareus Walker on 12-13-2024 Calcium [Mass/Vol] 9.7 mg/dL 7.6-11.0 [facility] Serum or plasma urea nitroge n measurement (mass/volume)Ordered By: Charis Walker on 12-13-2024 Urea nitrogen [Mass/Vol] 12 mg/dL 4-19 [facility] Sodium levelOrdered By: Nelson Walker on 12-13-2024 Sodium [Moles/Vol] 141 mmol/L 133-145 [facility] Venous Blood Gason 5 Blood Gas Type LASHAE Normal [facility] Comment on above: Performed By: #### L 9000.0810 ####[facility] [address] [place], [place], [address] CO2 [Moles/Vol] 28 mmol/L Normal 23-33 [facility] Comment on above: Performed By: #### L 9000.0810 ####[facility] [address] [place], [address] FI02 4.0 Normal [facility] Comment on above: Performed By: #### L 9000.0810 ####[facility] [address] [place], [address] HCO3 (Bld) [Moles/Vol] 26 mmol/L Normal 22-26 [facility] Comment on above: Performed By: #### L 9000.0810 ####[facility] [address] [place], [address] O2 Delivery Dev Cannula Normal [facility] Comment on above: Performed By: #### L 9000.0810 ####[facility] [address] [place], [address] SITE Not entered Normal [facility] Comment on above: Performed By: #### L 9000.0810 ####[facility] [address] [place], [address] VBG BE 2 mmol/L Normal -1.0-3.5 [facility] Comment on above: Performed By: #### L 9000.0810 ####[facility] [address] [place], [address] VBG pCO2 42.7 mmHg Normal 41-51 [facility] Comment on above: Performed By: #### L 9000.0810 ####[facility] [address] [place], [address] VBG pH 7.40 Normal 7.32-7.42 [facility] Comment on above: Performed By: #### L 9000.0810 ####[facility] [address] [place], [address] VBG PO2 56 mmHg High 25-40 [facility] Comment on above: Performed By: #### L 9000.0810 ####[facility] [address] [place], [place], [address] VBG SO2 89 High 50-70 [facility] Comment on above: Performed By: #### L 9000.0810 ####[facility] [address] [place], [place], [address] Venous blood base excess arlyn surementOrdered By: Shilpa Contreras on 12-13-2024 Base excess Calc (BldV) [Moles/Vol] 2 mmol/L -1.0-3.5 [facility] Venous blood bicarbonate arlyn surementOrdered By: Shilpa Contreras on 12-13-2024 HCO3 (Bld) [Moles/Vol] 26 mmol/L 22-26 [facility] Venous blood oxygen saturati on measurementOrdered By: Shilpa Contreras on 12-13-2024 Oxygen saturation in Blood 89 % High 50-70 [facility] Venous blood pH measurementO rdered By: Shilpa Contreras on 12-13-2024 pH (BldV) 7.40 [pH] 7.32-7.42 [facility] Venous blood partial pressur e of carbon dioxide measurementOrdered By: Shilpa Contreras on 12-13-2024 CO2 (BldV) [Partial pressure] 42.7 mm[Hg] 41-51 [facility] Venous blood partial pressur e of oxygen measurementOrdered By: Shilpa Contreras on 12-13-2024 Oxygen (BldV) [Partial pressure] 56 mm[Hg] High 25-40 [facility] White blood cell (WBC) count Ordered By: Charis Walker on 12-13-2024 WBC (Bld) [#/Vol] 5.9 10*3/uL 4.4-11.0 [facility] CBC W Auto Differential pane l (Bld)on 12-12-2024 Basophils (Bld) [#/Vol] 0.09 10*3/uL [facility] Basophils/100 WBC (Bld) 1.5 % C [facility] Differential cell count method Nom (Bld) Auto Eosinophils (Bld) [#/Vol] 0.22 10*3/uL [facility] Eosinophils/100 WBC (Bld) 3.7 % Erythrocyte distribution width (RBC) [Ratio] 13.8 % 11.5 - 15.0 % Hematocrit (Bld) [Volume fraction] 38.3 % Low 39.0 - 51.0 % Hemoglobin (Bld) [Mass/Vol] 11.7 g/dL Low 13.0 - 17.0 g/dL Immature granulocytes (Bld) [#/Vol] [facility] Imm[facility] granulocytes/100 WBC (Bld) 0.3 % Interpretation and review of laboratory results Abnormal Lymphocytes (Bld) [#/Vol] 0.8 10*3/uL Low Lymphocytes/100 WBC (Bld) 13.6 % MCH (RBC) [Entitic mass] 27.9 pg 26. 0 - 34.0 pg MCHC (RBC) [Mass/Vol] 30.5 g/dL 30.5 - 36.0 g/dL MCV (RBC) [Entitic vol] 91.4 fL 80.0 - 100.0 fL Monocytes (Bld) [#/Vol] 0.51 10*3/uL [facility] Monocytes/100 WBC (Bld) 8.7 % C [facility] Neutrophils (Bld) [#/Vol] 4.25 10*3/uL Neutrophils/100 WBC (Bld) 72.2 % Nucleated RBC (Bld) [#/Vol] [facility] Nucleated RBC/100 WBC (Bld) [Ratio] 0 % /100 WBC Platelet mean volume (Bld) [Entitic vol] 10.5 fL 9.0 - 12.7 fL Platelets (Bld) [#/Vol] 310 10*3/uL RBC (Bld) [#/Vol] 4.19 10*6/uL Low 4.20 - 6.0 0 m/uL WBC (Bld) [#/Vol] 5.89 10*3/uL [facility] Anion gap in Serum or Plasma Ordered By: Carla Crane on 12-02-2024 Anion gap [Moles/Vol] 11 mmol/L -15 [facility] BUN/creatinine ratioOrdered By: Carla Crane on 12-02-2024 Urea nitrogen/Creatinine [Mass ratio] 23.5 mg/mg High - [facility] Basic Metabolic Profile (BMP )on 12-02-2024 BUN/CRE 23.5 RATIO High - [facility] Comment on above: Order Comment: 307.2 Performed By: #### L 100.0500, L500.2500, L506.1001 ####[facility] [address] [place], [address] Calcium [Mass/Vol] 9.4 mg/dL Normal 7.6-11.0 [facility] Comment on above: Order Comment: 307.2 Performed By: #### L 100.0500, L500.2500, L506.1001 ####[facility] [address] [place], [address] Chloride [Moles/Vol] 104 mmol/L Normal 98-108 [facility] Comment on above: Order Comment: 307.2 Performed By: #### L 100.0500, L500.2500, L506.1001 ####[facility] [address] [place], [address] CO2 [Moles/Vol] 25.5 mmol/L Normal 21.0-32.0 [facility] Comment on above: Order Comment: 307.2 Performed By: #### L 100.0500, L500.2500, L506.1001 ####[facility] [address] [place], [address] Creatinine [Mass/Vol] 1.21 mg/dL High 0.70-1.20 [facility] Comment on above: Order Comment: 307.2 Performed By: #### L 100.0500, L500.2500, L506.1001 ####[facility] [address] [place], [address] GAP 11 Normal 5-15 [facility] Comment on above: Order Comment: 307.2 Performed By: #### L 100.0500, L500.2500, L506.1001 ####[facility] [address] [place], [address] GFR/1.73 sq M.predicted among non-blacks MDRD (S/P/Bld) [Vol rate/Area] 62 mL/min/{1.73_m2} Normal >60 [facility] Comment on above: Order Comment: 307.2 Result Comment: mL/m in/1.73m2 CKD-EPI Creatinine Equation (2020) Performed By: #### L 100.0500, L500.2500, L506.1001 ####[facility] [address] [place], [address] Glucose [Mass/Vol] 86 mg/dL Normal 70-99 [facility] Comment on above: Order Comment: 307.2 Performed By: #### L 100.0500, L500.2500, L506.1001 ####[facility] [address] [place], [address] Potassium [Moles/Vol] 4.1 mmol/L Normal 3.3-5.1 [facility] Comment on above: Order Comment: 307.2 Performed By: #### L 100.0500, L500.2500, L506.1001 ####[facility] [address] [place], [address] Sodium [Moles/Vol] 141 mmol/L Normal 133-145 [facility] Comment on above: Order Comment: 307.2 Performed By: #### L 100.0500, L500.2500, L506.1001 ####[facility] [address] [place], [address] Urea nitrogen [Mass/Vol] 28 mg/dL High 4-19 [facility] Comment on above: Order Comment: 307.2 Performed By: #### L 100.0500, L500.2500, L506.1001 ####[facility] [address] [place], [address] CBC-Complete Blood Cnt No Di ffon 12-02-2024 Erythrocyte distribution width (RBC) [Ratio] 13.2 % Normal 11.6-14.6 [facility] Comment on above: Order Comment: 307.2 Performed By: #### L 100.0500, L500.2500, L506.1001 ####[facility] [address] [place], [address] Hematocrit (Bld) [Volume fraction] 35.2 % Low 40-54 [facility] Comment on above: Order Comment: 307.2 Performed By: #### L 100.0500, L500.2500, L506.1001 ####[facility] [address] [place], [address] Hemoglobin (Bld) [Mass/Vol] 11.1 g/dL Low 13.0-16.5 [facility] Comment on above: Order Comment: 307.2 Performed By: #### L 100.0500, L500.2500, L506.1001 ####[facility] [address] [place], [address] MCH (RBC) [Entitic mass] 28.6 pg Normal 27.0-32.0 [facility] Comment on above: Order Comment: 307.2 Performed By: #### L 100.0500, L500.2500, L506.1001 ####[facility] [address] [place], [address] MCHC (RBC) [Mass/Vol] 31.5 g/dL Low 32-36 [facility] Comment on above: Order Comment: 307.2 Performed By: #### L 100.0500, L500.2500, L506.1001 ####[facility] [address] [place], [address] MCV (RBC) [Entitic vol] 90.7 fL Normal 80-94 [facility] Comment on above: Order Comment: 307.2 Performed By: #### L 100.0500, L500.2500, L506.1001 ####[facility] [address] [place], [address] Platelet mean volume (Bld) [Entitic vol] 10.2 fL Normal 6.2-12.0 [facility] Comment on above: Order Comment: 307.2 Performed By: #### L 100.0500, L500.2500, L506.1001 ####[facility] [address] [place], [address] Platelets (Bld) [#/Vol] 314 10*3/uL Normal 150-450 [facility] Comment on above: Order Comment: 307.2 Performed By: #### L 100.0500, L500.2500, L506.1001 ####[facility] [address] [place], [address] RBC (Bld) [#/Vol] 3.88 10*6/uL Low 4.6-6.2 [facility] Comment on above: Order Comment: 307.2 Performed By: #### L 100.0500, L500.2500, L506.1001 ####[facility] [address] [place], [address] RDW SD 43.6 fl Normal 35.1-43.9 [facility] Comment on above: Order Comment: 307.2 Performed By: #### L 100.0500, L500.2500, L506.1001 ####[facility] [address] [place], [address] WBC (Bld) [#/Vol] 5.1 10*3/uL Normal 4.4-11.0 [facility] Comment on above: Order Comment: 307.2 Performed By: #### L 100.0500, L500.2500, L506.1001 ####[facility] [address] [place], [address] Carbon dioxide, total [Moles /volume] in Central venous bloodOrdered By: Carla Crane on 12-02-2024 CO2 [Moles/Vol] 25.5 mmol/L 21.0-32.0 [facility] Chloride assayOrdered By: Wilfredo Crane on 12-02-2024 Chloride [Moles/Vol] 104 mmol/L 98-108 [facility] Erythrocyte distribution wid th ratioOrdered By: Carla Crane on 12-02-2024 Erythrocyte distribution width (RBC) [Ratio] 13.2 % 11.6-14.6 [facility] Erythrocyte distribution wid th standard deviationOrdered By: Carla Crane on 12-02-2024 Erythrocyte distribution width (RBC) [Ratio] 43.6 fl 35.1-43.9 [facility] Glomerular filtration rate ( GFR) estimation/1.73 sq m using serum, plasma, or whole bOrdered By: Carla Crane on 12-02-2024 GFR/1.73 sq M.predicted among non-blacks MDRD (S/P/Bld) [Vol rate/Area] 62 mL/min/{1.73_m2} >60 [facility] Comment on above: mL/min/1.73m2 CKD-EP I Creatinine Equation (2020) Hematocrit Auto (Bld) [Volum e fraction]Ordered By: Carla Crane on 12-02-2024 Hematocrit (Bld) [Volume fraction] 35.2 % Low 40-54 [facility] Hemoglobin measurementOrdere d By: Carla Crane on 12-02-2024 Hemoglobin (Bld) [Mass/Vol] 11.1 g/dL Low 13.0-16.5 [facility] MCV (mean corpuscular volume ) determinationOrdered By: Carla Crane on 12-02-2024 MCV (RBC) [Entitic vol] 90.7 fL 80-94 [facility] Mean corpuscular hemoglobin (MCH) determinationOrdered By: Carla Crane on 12-02-2024 MCH (RBC) [Entitic mass] 28.6 pg 27.0-32.0 [facility] Mean corpuscular hemoglobin concentration (MCHC) determinationOrdered By: Carla Crane on 12-02-2024 MCHC (RBC) [Mass/Vol] 31.5 g/dL Low 32-36 [facility] Mean platelet volume determi nationOrdered By: Carla Crane on 12-02-2024 Platelet mean volume (Bld) [Entitic vol] 10.2 fL 6.2-12.0 [facility] Platelet countOrdered By: Wilfredo Crane on 12-02-2024 Platelets (Bld) [#/Vol] 314 10*3/uL 150-450 [facility] Potassium measurement (mass/ volume)Ordered By: Carla Crane on 12-02-2024 Potassium (Unsp spec) [Mass/Vol] 4.1 mmol/L 3.3-5.1 [facility] RBC Auto (Bld) [#/Vol]Ordere d By: Carla Crane on 12-02-2024 RBC (Bld) [#/Vol] 3.88 10*6/uL Low 4.6-6.2 [facility] Serum creatinine measurement (mass/volume)Ordered By: Carla Crane on 12-02-2024 Creatinine [Mass/Vol] 1.21 mg/dL High 0.70-1.20 [facility] Serum glucose measurement (m ass/volume)Ordered By: Carla Crane on 12-02-2024 Glucose [Mass/Vol] 86 mg/dL 70-99 [facility] Serum or plasma calcium luis urement (mass/volume)Ordered By: Carla Crane on 12-02-2024 Calcium [Mass/Vol] 9.4 mg/dL 7.6-11.0 [facility] Serum or plasma urea nitroge n measurement (mass/volume)Ordered By: Carla rCane on 12-02-2024 Urea nitrogen [Mass/Vol] 28 mg/dL High 4-19 [facility] Sodium levelOrdered By: Luca Crane on 12-02-2024 Sodium [Moles/Vol] 141 mmol/L 133-145 [facility] Vitamin D,25 Hydroxyon 12-02 Vitamin D 25-OH 46.6 ng/mL Normal 30-100 [facility] Comment on above: Order Comment: 307.2 Result Comment: Teri min D StatusDeficiency: <20 ng/mL (50nmol/L)Insufficiency: 20-30 ng/mL (50-75 nmol/L)Sufficiency: 30-100 ng/mL (75-250 nmol/L)Toxicity: >100 ng/mL (>250 nmol/L) Performed By: #### L 100.0500, L500.2500, L506.1001 ####[facility] [address] [place], [place], [id number] White blood cell (WBC) count Ordered By: Carla Crane on 12-02-2024 WBC (Bld) [#/Vol] 5.1 10*3/uL 4.4-11.0 [facility] Calculated very low density lipoprotein (VLDL) cholesterol measurementOrdered By: Carla Crane on 11-05-2024 Calculated very low density lipoprotein (VLDL) cholesterol measurement 13 mg/dL 5-40 [facility] LDL calc ser/plasOrdered By: Carla Crane on 11-05-2024 Cholesterol in LDL [Mass/Vol] 63 mg/dL [facility] Comment on above: Gnprxxhooa=911-422 m g/dL & Higher Uird=432 mg/dL or greater Lipid Profileon 11-05-2024 CHOL:HDL 2.18 Normal [facility] Comment on above: Order Comment: 307.2 Performed By: #### L 500.4100, L506.1001 ####[facility] [address] [place], [place], [id number] Cholesterol [Mass/Vol] 140 mg/dL Normal <=200 [facility] Comment on above: Order Comment: 307.2 Result Comment: Chol esterol level, Desirable <200 mg/dLBorderline high cholesterol 200-239 mg/dLHigh cholesterol >=240 mg/dLRecommendations of the NCEP Adult Treatment Panel for thefollowing risk-cutoff thresholds for the [place] Americanpulation. Performed By: #### L 500.4100, L506.1001 ####[facility] [address] [place], [address] Cholesterol in HDL [Mass/Vol] 64 mg/dL Normal [facility] Comment on above: Order Comment: 307.2 Result Comment: Yasmin onal Cholesterol Education Program (NCEP) guidelines:<40 mg/dL: Low HDL-cholesterol (major risk factor for CHD)>= 60 mg/dL: High HDL-cholesterol (negative risk factor forCHD)HDL-cholesterol is affected by a number of factors, e.g.smoking, exercise, hormones, sex and age. Performed By: #### L 500.4100, L506.1001 ####[facility] [address] [place], [address] Cholesterol in LDL [Mass/Vol] 63 mg/dL Normal [facility] Comment on above: Order Comment: 307.2 Result Comment: Bord orptlk=595-792 mg/dL Higher Nkcq=817 mg/dL or greater Performed By: #### L 500.4100, L506.1001 ####[facility] [address] [place], [address] Cholesterol in VLDL [Mass/Vol] 13 mg/dL Normal 5-40 [facility] Comment on above: Order Comment: 307.2 Performed By: #### L 500.4100, L506.1001 ####[facility] [address] [place], [address] Triglyceride [Mass/Vol] 63 mg/dL Normal [facility] Comment on above: Order Comment: 307.2 Result Comment: The drugs N-Acetylcysteine and Metamizole may falselydepress this assay.Normal range: <150 mg/dLBorderline High: 150-199 mg/dLHigh: 200-499 mg/dLVery High: >500 mg/dL Performed By: #### L 500.4100, L506.1001 ####[facility] [address] [place], [address] Screening total cholesterol/ high density lipoprotein (HDL) cholesterol ratioOrdered By: Carla Crane on 11-05-2024 Cholesterol.total/Choles terol in HDL [Mass ratio] 2.18 {ratio} [facility] Serum or plasma cholesterol in HDL measurement (mass/volume)Ordered By: Carla Crane on 11-05-2024 Cholesterol in HDL [Mass/Vol] 64 mg/dL >40 [facility] Comment on above: National Cholesterol Education Program (NCEP) guidelines:<40 mg/dL: Low HDL-cholesterol (major risk factor for CHD)>= 60 mg/dL: High HDL-cholesterol (negative risk factor for CHD)HDL-cholesterol is affected by a number of factors, e.g. smoking, exercise, hormones, sex and age. Serum or plasma cholesterol measurement (mass/volume)Ordered By: Carla Crane on 11-05-2024 Cholesterol [Mass/Vol] 140 mg/dL <201 [facility] Comment on above: Cholesterol level, D esirable <200 mg/dLBorderline high cholesterol 200-239 mg/dLHigh cholesterol >=240 mg/dLRecommendations of the NCEP Adult Treatment Panel for the following risk-cutoff thresholds for the [place] population. Triglycerides measurementOrd ered By: Carla Crane on 11-05-2024 Triglyceride [Mass/Vol] 63 mg/dL <199 [facility] Comment on above: The drugs N-Acetylcy steine and Metamizole may falsely depress this assay. Normal range: <150 mg/dLBorderline High: 150-199 mg/dLHigh: 200-499 mg/dLVery High: >500 mg/dL Vitamin D,25 Hydroxyon 11-05 Vitamin D 25-OH 51.2 ng/mL Normal 30-100 [facility] Comment on above: Order Comment: 307.2 Result Comment: Teri min D StatusDeficiency: <20 ng/mL (50nmol/L)Insufficiency: 20-30 ng/mL (50-75 nmol/L)Sufficiency: 30-100 ng/mL (75-250 nmol/L)Toxicity: >100 ng/mL (>250 nmol/L) Performed By: #### L 500.7970, L506.1001 ####[facility] [address] [place], [address] Lipid Profileon 11-04-2024 CHOL Normal <=200 [facility] Comment on above: Order Comment: 307-2 Result Comment: MICHOACANO ENT REFUSED-NOTFIED NURSE Performed By: #### L 500.4100 ####[facility] [address] [place], [address] CHOL:HDL Normal [facility] Comment on above: Order Comment: 307-2 Result Comment: MICHOACANO ENT REFUSED-NOTFIED NURSE Performed By: #### L 500.4100 ####[facility] [address] [place], [address] CLDL Normal [facility] Comment on above: Order Comment: 307-2 Result Comment: MICHOACANO ENT REFUSED-NOTFIED NURSE Performed By: #### L 500.4100 ####[facility] [address] [place], [address] HDL Normal [facility] Comment on above: Order Comment: 307-2 Result Comment: MICHOACANO ENT REFUSED-NOTFIED NURSE Performed By: #### L 500.4100 ####[facility] [address] [place], [address] TRIG Normal [facility] Comment on above: Order Comment: 307-2 Result Comment: MICHOACANO ENT REFUSED-NOTFIED NURSE Performed By: #### L 500.4100 ####[facility] [address] [place], [address] VLDL Normal 5-40 [facility] Comment on above: Order Comment: 307-2 Result Comment: MICHOACANO ENT REFUSED-NOTFIED NURSE Performed By: #### L 500.4100 ####[facility] [address] [place], [address] Carbamazepine (Tegretol)on 0 10-16-2024 CARBAMAZEPINE 7.1 ug/mL Normal 4.0-12.0 [facility] Comment on above: Order Comment: 300 Performed By: #### L 501.7900 ####[facility] [address] [place], [address] Serum or plasma carbamazepin e level (mass/volume)Ordered By: Carla Crane on 10-16-2024 carBAMazepine [Mass/Vol] 7.1 ug/mL 4.0-12.0 [facility] Urine Cultureon 09-08-2024 URC Normal [facility] Comment on above: Performed By: #### M 100.2200, L400.0001 ####[facility] [address] [place], [address] Anion gap in Serum or Plasma Ordered By: Celia Toribio on 09-02-2024 Anion gap [Moles/Vol] 11 mmol/L 5-15 [facility] BUN/creatinine ratioOrdered By: Celia Toribio on 09-02-2024 Urea nitrogen/Creatinine [Mass ratio] 27.0 mg/mg High 10-20 [facility] Basic Metabolic Profile (BMP )on 09-02-2024 BUN/CRE 27.0 RATIO High [facility] Comment on above: Performed By: #### L 500.2500, L100.0100 ####[facility] [address] [place], [address] Calcium [Mass/Vol] 9.2 mg/dL Normal 7.6-11.0 [facility] Comment on above: Performed By: #### L 500.2500, L100.0100 ####[facility] [address] [place], [address] Chloride [Moles/Vol] 106 mmol/L Normal 98-108 [facility] Comment on above: Performed By: #### L 500.2500, L100.0100 ####[facility] [address] [place], [address] CO2 [Moles/Vol] 20.8 mmol/L Low 21.0-32.0 [facility] Comment on above: Performed By: #### L 500.2500, L100.0100 ####[facility] [address] [place], [address] Creatinine [Mass/Vol] 1.22 mg/dL High 0.70-1.20 [facility] Comment on above: Performed By: #### L 500.2500, L100.0100 ####[facility] [address] [place], [address] ECRCL 50.54 ml/min Normal 50-250 [facility] Comment on above: Performed By: #### L 500.2500, L100.0100 ####[facility] [address] [place], [address] GAP 11 Normal 5-15 [facility] Comment on above: Performed By: #### L 500.2500, L100.0100 ####[facility] [address] [place], [address] GFR/1.73 sq M.predicted among non-blacks MDRD (S/P/Bld) [Vol rate/Area] 62 mL/min/{1.73_m2} Normal >60 [facility] Comment on above: Result Comment: mL/m in/1.73m2 CKD-EPI Creatinine Equation (2020) Performed By: #### L 500.2500, L100.0100 ####[facility] [address] [place], [address] Glucose [Mass/Vol] 99 mg/dL Normal 70-99 [facility] Comment on above: Performed By: #### L 500.2500, L100.0100 ####[facility] [address] [place], [address] Potassium [Moles/Vol] 4.0 mmol/L Normal 3.3-5.1 [facility] Comment on above: Performed By: #### L 500.2500, L100.0100 ####[facility] [address] [place], [address] Sodium [Moles/Vol] 138 mmol/L Normal 133-145 [facility] Comment on above: Performed By: #### L 500.2500, L100.0100 ####[facility] [address] [place], [address] Urea nitrogen [Mass/Vol] 33 mg/dL High 4-19 [facility] Comment on above: Performed By: #### L 500.2500, L100.0100 ####[facility] [address] [place], [address] CBC W/Diff, Automatedon 08-17 Absolute Neut Normal 2.0-7.7 [facility] Comment on above: Result Comment: Canc elled via OM: MD Ordered Performed By: #### L 500.2500, L100.0100 ####[facility] [address] [place], [address] HCT Normal 40-54 [facility] Comment on above: Result Comment: Canc elled via OM: MD Ordered Performed By: #### L 500.2500, L100.0100 ####[facility] [address] [place], [address] HGB Normal 13.0-16.5 [facility] Comment on above: Result Comment: Canc elled via OM: MD Ordered Performed By: #### L 500.2500, L100.0100 ####[facility] [address] [place], [address] MCH Normal 27.0-32.0 [facility] Comment on above: Result Comment: Canc elled via OM: MD Ordered Performed By: #### L 500.2500, L100.0100 ####[facility] [address] [place], [address] MCHC Normal 32-36 [facility] Comment on above: Result Comment: Canc elled via OM: MD Ordered Performed By: #### L 500.2500, L100.0100 ####[facility] [address] [place], [address] MCV Normal 80-94 [facility] Comment on above: Result Comment: Canc elled via OM: MD Ordered Performed By: #### L 500.2500, L100.0100 ####[facility] [address] [place], [address] NEUT% Normal 47-70 [facility] Comment on above: Result Comment: Canc elled via OM: MD Ordered Performed By: #### L 500.2500, L100.0100 ####[facility] [address] [place], [address] PLT Normal 150-450 [facility] Comment on above: Result Comment: Canc elled via OM: MD Ordered Performed By: #### L 500.2500, L100.0100 ####[facility] [address] [place], [address] RBC Normal 4.6-6.2 [facility] Comment on above: Result Comment: Canc elled via OM: MD Ordered Performed By: #### L 500.2500, L100.0100 ####[facility] [address] [place], [address] RDW CV Normal 11.6-14.6 [facility] Comment on above: Result Comment: Canc elled via OM: MD Ordered Performed By: #### L 500.2500, L100.0100 ####[facility] [address] [place], [address] RDW SD Normal 35.1-43.9 [facility] Comment on above: Result Comment: Canc elled via OM: MD Ordered Performed By: #### L 500.2500, L100.0100 ####[facility] [address] [place], [address] WBC Normal 4.4-11.0 [facility] Comment on above: Result Comment: Bethanie luna via OM: Ordered Performed By: #### L 500.2500, L100.0100 ####[facility] [address] [place], [address] Carbon dioxide, total [Moles /volume] in Central venous bloodOrdered By: Celia Toribio on 09-02-2024 CO2 [Moles/Vol] 20.8 mmol/L Low 21.0-32.0 [facility] Chloride assayOrdered By: Yariel Toribio on 09-02-2024 Chloride [Moles/Vol] 106 mmol/L 98-108 [facility] Estimation of creatinine zeke aranceOrdered By: Celia Toribio on 09-02-2024 Estimated Creatinine Clearance Calc 50.54 ml/min 50-250 [facility] GFR/1.73 sq M.predicted gisella g non-blacks MDRD (S/P/Bld) [Vol rate/Area]Ordered By: Celia Toribio on 09-02-2024 Estimated GFR (MDRD) Non-Af Amer 62 >60 [facility] Comment on above: mL/min/1.73m2 CKD-EP I Creatinine Equation (2020) Glomerular filtration rate ( GFR) estimation/1.73 sq m using serum, plasma, or whole bOrdered By: Celia Toribio on 09-02-2024 GFR/1.73 sq M.predicted among non-blacks MDRD (S/P/Bld) [Vol rate/Area] 62 mL/min/{1.73_m2} >60 [facility] Comment on above: mL/min/1.73m2 CKD-EP I Creatinine Equation (2020) Potassium (Unsp spec) [Mass/ Vol]Ordered By: eClia Toribio on 09-02-2024 Potassium [Moles/Vol] 4.0 mmol/L 3.3-5.1 [facility] Potassium measurement (mass/ volume)Ordered By: Celia Toribio on 09-02-2024 Potassium (Unsp spec) [Mass/Vol] 4.0 mmol/L 3.3-5.1 [facility] Serum creatinine measurement (mass/volume)Ordered By: Celia Toribio on 09-02-2024 Creatinine [Mass/Vol] 1.22 mg/dL High 0.70-1.20 [facility] Serum glucose measurement (m ass/volume)Ordered By: Celia Toribio on 09-02-2024 Glucose [Mass/Vol] 99 mg/dL 70-99 [facility] Serum or plasma calcium luis urement (mass/volume)Ordered By: Celia Toribio on 09-02-2024 Calcium [Mass/Vol] 9.2 mg/dL 7.6-11.0 [facility] Serum or plasma urea nitroge n measurement (mass/volume)Ordered By: Celia Toribio on 09-02-2024 Urea nitrogen [Mass/Vol] 33 mg/dL High 4-19 [facility] Sodium levelOrdered By: Rigoberto Toribio on 09-02-2024 Sodium [Moles/Vol] 138 mmol/L 133-145 [facility] Absolute lymphocyte countOrd ered By: Celia Toribio on 09-01-2024 Lymphocytes Auto (Unsp spec) [#/Vol] 1.45 10*3/uL 0.83-4.51 [facility] Absolute neutrophil countOrd ered By: Celia Toribio on 09-01-2024 Neutrophils (Bld) [#/Vol] 4.9 10*3/uL 2.0-7.7 [facility] Automated lymphocyte count a s percentage of total leukocytesOrdered By: Celia Toribio on 09-01-2024 Lymphocytes/100 WBC Auto (Unsp spec) 20.9 % 19-41 [facility] Basic Metabolic Profile (BMP )on 09-01-2024 BUN/CRE 26.8 RATIO High 10-20 [facility] Comment on above: Order Comment: PT RE FUSED REPORTED TO SEYMOUR STORY. SEYMOUR STORY SAID SHE WOULDTRY TO DRAW. Performed By: #### L 500.8475 ####[facility] [address] [place], [address] Calcium [Mass/Vol] 9.6 mg/dL Normal 7.6-11.0 [facility] Comment on above: Order Comment: PT RE FUSED REPORTED TO SEYMOUR JEZ. RN JEZ SAID SHE WOULDTRY TO DRAW. Performed By: #### L 500.2500 ####[facility] [address] [place], [address] Chloride [Moles/Vol] 102 mmol/L Normal 98-108 [facility] Comment on above: Order Comment: PT RE FUSED REPORTED TO RN JEZ. RN JEZ SAID SHE WOULDTRY TO DRAW. Performed By: #### L 500.2500 ####[facility] [address] [facility] [address] CO2 [Moles/Vol] 21.9 mmol/L Normal 21.0-32.0 [facility] Comment on above: Order Comment: PT RE FUSED REPORTED TO RN JEZ. RN JEZ SAID SHE WOULDTRY TO DRAW. Performed By: #### L 500.2500 ####[facility] [address] [facility] [address] Creatinine [Mass/Vol] 1.44 mg/dL High 0.70-1.20 [facility] Comment on above: Order Comment: PT RE FUSED REPORTED TO RN JEZ. RN JEZ SAID SHE WOULDTRY TO DRAW. Performed By: #### L 500.2500 ####[facility] [address] [facility] [address] ECRCL 42.38 ml/min Low 50-250 [facility] Comment on above: Order Comment: PT RE FUSED REPORTED TO RN JEZ. RN JEZ SAID SHE WOULDTRY TO DRAW. Performed By: #### L 500.2500 ####[facility] [address] [facility] [address] GAP 13 Normal 5-15 [facility] Comment on above: Order Comment: PT RE FUSED REPORTED TO RN JEZ. RN JEZ SAID SHE WOULDTRY TO DRAW. Performed By: #### L 500.2500 ####[facility] [address] [facility] [address] GFR/1.73 sq M.predicted among non-blacks MDRD (S/P/Bld) [Vol rate/Area] 51 mL/min/{1.73_m2} Low >60 [facility] Comment on above: Order Comment: PT RE FUSED REPORTED TO [facility]. RN JEZ SAID SHE WOULDTRY TO DRAW. Result Comment: mL/m in/1.73m2 CKD-EPI Creatinine Equation (2020) Performed By: #### L 500.2500 ####[facility] [address] [facility] [address] Glucose [Mass/Vol] 118 mg/dL High 70-99 [facility] Comment on above: Order Comment: PT RE FUSED REPORTED TO [facility]. RN JEZ SAID SHE WOULDTRY TO DRAW. Performed By: #### L 500.2500 ####[facility] [address] [facility] [address] Potassium [Moles/Vol] 4.1 mmol/L Normal 3.3-5.1 [facility] Comment on above: Order Comment: PT RE FUSED REPORTED TO [facility]. RN JEZ SAID SHE WOULDTRY TO DRAW. Performed By: #### L 500.2500 ####[facility] [address] [facility] [address] Sodium [Moles/Vol] 137 mmol/L Normal 133-145 [facility] Comment on above: Order Comment: PT RE FUSED REPORTED TO [facility]. RN JEZ SAID SHE WOULDTRY TO DRAW. Performed By: #### L 500.2500 ####[facility] [address] [facility] [address] Urea nitrogen [Mass/Vol] 39 mg/dL High 4-19 [facility] Comment on above: Order Comment: PT RE FUSED REPORTED TO [facility]. [facility]ORY SAID SHE WOULDTRY TO DRAW. Performed By: #### L 500.2500 ####[facility] [address] [place], [address] BUN/CRE 30.2 RATIO High 10-20 [facility] Comment on above: Performed By: #### L 100.0100, L500.2500 ####[facility] [address] [place], [address] Calcium [Mass/Vol] 9.7 mg/dL Normal 7.6-11.0 [facility] Comment on above: Performed By: #### L 100.0100, L500.2500 ####[facility] [address] [place], [address] Chloride [Moles/Vol] 103 mmol/L Normal 98-108 [facility] Comment on above: Performed By: #### L 100.0100, L500.2500 ####[facility] [address] [place], [address] CO2 [Moles/Vol] 19.4 mmol/L Low 21.0-32.0 [facility] Comment on above: Performed By: #### L 100.0100, L500.2500 ####[facility] [address] [place], [address] Creatinine [Mass/Vol] 1.33 mg/dL High 0.70-1.20 [facility] Comment on above: Performed By: #### L 100.0100, L500.2500 ####[facility] [address] [place], [address] ECRCL 45.89 ml/min Low 50-250 [facility] Comment on above: Performed By: #### L 100.0100, L500.2500 ####[facility] [address] [place], [address] GAP 16 High 5-15 [facility] Comment on above: Performed By: #### L 100.0100, L500.2500 ####[facility] [address] [place], [address] GFR/1.73 sq M.predicted among non-blacks MDRD (S/P/Bld) [Vol rate/Area] 56 mL/min/{1.73_m2} Low >60 [facility] Comment on above: Result Comment: mL/m in/1.73m2 CKD-EPI Creatinine Equation (2020) Performed By: #### L 100.0100, L500.2500 ####[facility] [address] [place], [address] Glucose [Mass/Vol] 83 mg/dL Normal 70-99 [facility] Comment on above: Performed By: #### L 100.0100, L500.2500 ####[facility] [address] [place], [address] Potassium [Moles/Vol] 3.8 mmol/L Normal 3.3-5.1 [facility] Comment on above: Performed By: #### L 100.0100, L500.2500 ####[facility] [address] [place], [address] Sodium [Moles/Vol] 139 mmol/L Normal 133-145 [facility] Comment on above: Performed By: #### L 100.0100, L500.2500 ####[facility] [address] [place], [address] Urea nitrogen [Mass/Vol] 40 mg/dL High 4-19 [facility] Comment on above: Performed By: #### L 100.0100, L500.2500 ####[facility] [address] [place], [address] Basophil percentageOrdered B y: Celia Toribio on 09-01-2024 Basophils/100 WBC (Bld) 1.0 % 0-1 [facility] CBC W/Diff, Automatedon 08-17 Absolute Lymph 1.45 X10 3/uL Normal 0.83-4.51 [facility] Comment on above: Performed By: #### L 100.0100 ####[facility] [address] [place], [address] Absolute Neut 4.9 X10 3/uL Normal 2.0-7.7 [facility] Comment on above: Performed By: #### L 100.0100 ####[facility] [address] [place], [address] Basophils/100 WBC (Bld) 1.0 % Normal 0-1 [facility] Comment on above: Performed By: #### L 100.0100 ####[facility] [address] [place], [address] Eosinophils/100 WBC (Bld) 0.4 % Normal 0-5 [facility] Comment on above: Performed By: #### L 100.0100 ####[facility] [address] [place], [address] Erythrocyte distribution width (RBC) [Ratio] 13.3 % Normal 11.6-14.6 [facility] Comment on above: Performed By: #### L 100.0100 ####[facility] [address] [place], [address] Hematocrit (Bld) [Volume fraction] 43.2 % Normal 40-54 [facility] Comment on above: Performed By: #### L 100.0100 ####[facility] [address] [place], [address] Hemoglobin (Bld) [Mass/Vol] 14.1 g/dL Normal 13.0-16.5 [facility] Comment on above: Performed By: #### L 100.0100 ####[facility] [address] [place], [address] IG% 0.600 Normal 0.0-0.9 [facility] Comment on above: Result Comment: IG% - Immature Granulocytes (promyelocytes, myelocytes andmetamyelocytes) > 1% indicates that a LEFT SHIFT is Present. Performed By: #### L 100.0100 ####[facility] [address] [place], [address] Lymphocytes/100 WBC (Bld) 20.9 % Normal 19-41 [facility] Comment on above: Performed By: #### L 100.0100 ####[facility] [address] [place], [address] MCH (RBC) [Entitic mass] 31.4 pg Normal 27.0-32.0 [facility] Comment on above: Performed By: #### L 100.0100 ####[facility] [address] [place], [address] MCHC (RBC) [Mass/Vol] 32.6 g/dL Normal 32-36 [facility] Comment on above: Performed By: #### L 100.0100 ####[facility] [address] [place], [address] MCV (RBC) [Entitic vol] 96.2 fL High 80-94 [facility] Comment on above: Performed By: #### L 100.0100 ####[facility] [address] [place], [address] Monocytes/100 WBC (Bld) 6.2 % Normal 0-10 [facility] Comment on above: Performed By: #### L 100.0100 ####[facility] [address] [place], [address] Neutrophils/100 WBC (Bld) 70.9 % High 47-70 [facility] Comment on above: Performed By: #### L 100.0100 ####[facility] [address] [place], [address] Nucleated RBC (Bld) [#/Vol] 0 10*3/uL Normal 0-5 [facility] Comment on above: Performed By: #### L 100.0100 ####[facility] [address] [place], [address] Platelet mean volume (Bld) [Entitic vol] 9.5 fL Normal 6.2-12.0 [facility] Comment on above: Performed By: #### L 100.0100 ####[facility] [address] [place], [address] Platelets (Bld) [#/Vol] 367 10*3/uL Normal 150-450 [facility] Comment on above: Performed By: #### L 100.0100 ####[facility] [address] [place], [address] RBC (Bld) [#/Vol] 4.49 10*6/uL Low 4.6-6.2 [facility] Comment on above: Performed By: #### L 100.0100 ####[facility] [address] [place], [address] RDW SD 47.4 fl High 35.1-43.9 [facility] Comment on above: Performed By: #### L 100.0100 ####[facility] [address] [place], [address] WBC (Bld) [#/Vol] 6.9 10*3/uL Normal 4.4-11.0 [facility] Comment on above: Performed By: #### L 100.0100 ####[facility] [address] [place], [address] Absolute Neut Normal 2.0-7.7 [facility] Comment on above: Result Comment: Bethanie luna via TINO: Ordered Performed By: #### L 100.0100, L500.2500 ####[facility] [address] [place], [address] HCT Normal 40-54 [facility] Comment on above: Result Comment: Canc elled via OM: MD Ordered Performed By: #### L 100.0100, L500.2500 ####[facility] [address] [place], [address] HGB Normal 13.0-16.5 [facility] Comment on above: Result Comment: Canc elled via OM: MD Ordered Performed By: #### L 100.0100, L500.2500 ####[facility] [address] [place], [address] MCH Normal 27.0-32.0 [facility] Comment on above: Result Comment: Canc elled via OM: MD Ordered Performed By: #### L 100.0100, L500.2500 ####[facility] [address] [place], [address] MCHC Normal 32-36 [facility] Comment on above: Result Comment: Canc elled via OM: MD Ordered Performed By: #### L 100.0100, L500.2500 ####[facility] [address] [place], [address] MCV Normal 80-94 [facility] Comment on above: Result Comment: Canc elled via OM: MD Ordered Performed By: #### L 100.0100, L500.2500 ####[facility] [address] [place], [address] NEUT% Normal 47-70 [facility] Comment on above: Result Comment: Canc elled via OM: MD Ordered Performed By: #### L 100.0100, L500.2500 ####[facility] [address] [place], [address] PLT Normal 150-450 [facility] Comment on above: Result Comment: Canc elled via OM: MD Ordered Performed By: #### L 100.0100, L500.2500 ####[facility] [address] [place], [address] RBC Normal 4.6-6.2 [facility] Comment on above: Result Comment: Canc elled via OM: MD Ordered Performed By: #### L 100.0100, L500.2500 ####[facility] [address] [place], [address] RDW CV Normal 11.6-14.6 [facility] Comment on above: Result Comment: Canc elled via OM: MD Ordered Performed By: #### L 100.0100, L500.2500 ####[facility] [address] [place], [address] RDW SD Normal 35.1-43.9 [facility] Comment on above: Result Comment: Canc elled via OM: MD Ordered Performed By: #### L 100.0100, L500.2500 ####[facility] [address] [place], [address] WBC Normal 4.4-11.0 [facility] Comment on above: Result Comment: Canc elled via OM: MD Ordered Performed By: #### L 100.0100, L500.2500 ####[facility] [address] [place], [address] Eosinophil percentageOrdered By: Celia Toribio on 09-01-2024 Eosinophils/100 WBC (Bld) 0.4 % 0-5 [facility] Erythrocyte distribution wid th ratioOrdered By: Celia Toribio on 09-01-2024 Erythrocyte distribution width (RBC) [Ratio] 13.3 % 11.6-14.6 [facility] Erythrocyte distribution wid th standard deviationOrdered By: Celia Toribio on 09-01-2024 Erythrocyte distribution width (RBC) [Entitic vol] 47.4 fL High 35.1-43.9 [facility] Erythrocyte distribution width (RBC) [Ratio] 47.4 fl High 35.1-43.9 [facility] Hematocrit Auto (Bld) [Volum e fraction]Ordered By: Celia Toribio on 09-01-2024 Hematocrit (Bld) [Volume fraction] 43.2 % 40-54 [facility] Hemoglobin measurementOrdere d By: Celia Toribio on 09-01-2024 Hemoglobin (Bld) [Mass/Vol] 14.1 g/dL 13.0-16.5 [facility] Immature granulocytes/100 WB C Auto (Bld)Ordered By: Celia Toribio on 09-01-2024 Immature granulocytes/100 WBC (Bld) 0.600 % 0.0-0.9 [facility] Comment on above: IG% - Immature Granu locytes (promyelocytes, myelocytes and metamyelocytes) > 1% indicates that a LEFT SHIFT is Present. Lymphocytes Auto (Unsp spec) [#/Vol]Ordered By: Celia Toribio on 09-01-2024 Lymphocytes (Bld) [#/Vol] 1.45 10*3/uL 0.83-4.51 [facility] Lymphocytes/100 WBC Auto (Un sp spec)Ordered By: Celia Toribio on 09-01-2024 Lymphocytes/100 WBC (Bld) 20.9 % 19-41 [facility] MCV (mean corpuscular volume ) determinationOrdered By: Celia Toribio on 09-01-2024 MCV (RBC) [Entitic vol] 96.2 fL High 80-94 [facility] Mean corpuscular hemoglobin (MCH) determinationOrdered By: Celia Toribio on 09-01-2024 MCH (RBC) [Entitic mass] 31.4 pg 27.0-32.0 [facility] Mean corpuscular hemoglobin concentration (MCHC) determinationOrdered By: Celia Toribio on 09-01-2024 MCHC (RBC) [Mass/Vol] 32.6 g/dL 32-36 [facility] Mean platelet volume determi nationOrdered By: Celia Toribio on 09-01-2024 Platelet mean volume (Bld) [Entitic vol] 9.5 fL 6.2-12.0 [facility] Monocyte percentageOrdered B y: Celia Toribio on 09-01-2024 Monocytes/100 WBC (Bld) 6.2 % 0-10 [facility] Neutrophil percentageOrdered By: Celia Toribio on 09-01-2024 Neutrophils/100 WBC (Bld) 70.9 % High 47-70 [facility] Nucleated red blood cell per centageOrdered By: Celia Toribio on 09-01-2024 Nucleated RBC/100 WBC (Bld) [Ratio] 0 % 0-5 [facility] Platelet countOrdered By: Yariel Toribio on 09-01-2024 Platelets (Bld) [#/Vol] 367 10*3/uL 150-450 [facility] RBC Auto (Bld) [#/Vol]Ordere d By: Celia Toribio on 09-01-2024 RBC (Bld) [#/Vol] 4.49 10*6/uL Low 4.6-6.2 [facility] White blood cell (WBC) count Ordered By: Celia Toribio on 09-01-2024 WBC (Bld) [#/Vol] 6.9 10*3/uL 4.4-11.0 [facility] Basic Metabolic Profile (BMP )on 08-31-2024 BUN/CRE 25.7 RATIO High 10-20 [facility] Comment on above: Performed By: #### L 500.2500, L100.0100 ####[facility] [address] [place], [address] Calcium [Mass/Vol] 10.0 mg/dL Normal 7.6-11.0 [facility] Comment on above: Performed By: #### L 500.2500, L100.0100 ####[facility] [address] [place], [address] Chloride [Moles/Vol] 102 mmol/L Normal 98-108 [facility] Comment on above: Performed By: #### L 500.2500, L100.0100 ####[facility] [address] [place], [address] CO2 [Moles/Vol] 21.5 mmol/L Normal 21.0-32.0 [facility] Comment on above: Performed By: #### L 500.2500, L100.0100 ####[facility] [address] [place], [address] Creatinine [Mass/Vol] 1.16 mg/dL Normal 0.70-1.20 [facility] Comment on above: Performed By: #### L 500.2500, L100.0100 ####[facility] [address] [place], [address] ECRCL 52.61 ml/min Normal 50-250 [facility] Comment on above: Performed By: #### L 500.2500, L100.0100 ####[facility] [address] [place], [address] GAP 15 Normal 5-15 [facility] Comment on above: Performed By: #### L 500.2500, L100.0100 ####[facility] [address] [place], [address] GFR/1.73 sq M.predicted among non-blacks MDRD (S/P/Bld) [Vol rate/Area] 66 mL/min/{1.73_m2} Normal >60 [facility] Comment on above: Result Comment: mL/m in/1.73m2 CKD-EPI Creatinine Equation (2020) Performed By: #### L 500.2500, L100.0100 ####[facility] [address] [place], [address] Glucose [Mass/Vol] 93 mg/dL Normal 70-99 [facility] Comment on above: Performed By: #### L 500.2500, L100.0100 ####[facility] [address] [place], [address] Potassium [Moles/Vol] 3.8 mmol/L Normal 3.3-5.1 [facility] Comment on above: Performed By: #### L 500.2500, L100.0100 ####[facility] [address] [place], [address] Sodium [Moles/Vol] 138 mmol/L Normal 133-145 [facility] Comment on above: Performed By: #### L 500.2500, L100.0100 ####[facility] [address] [place], [address] Urea nitrogen [Mass/Vol] 30 mg/dL High 4-19 [facility] Comment on above: Performed By: #### L 500.2500, L100.0100 ####[facility] [address] [place], [address] CBC W/Diff, Automatedon 08-17 Absolute Neut Normal 2.0-7.7 [facility] Comment on above: Result Comment: Canc elled via OM: MD Ordered Performed By: #### L 500.2500, L100.0100 ####[facility] [address] [place], [address] HCT Normal 40-54 [facility] Comment on above: Result Comment: Canc elled via OM: MD Ordered Performed By: #### L 500.2500, L100.0100 ####[facility] [address] [place], [address] HGB Normal 13.0-16.5 [facility] Comment on above: Result Comment: Canc elled via OM: MD Ordered Performed By: #### L 500.2500, L100.0100 ####[facility] [address] [place], [address] MCH Normal 27.0-32.0 [facility] Comment on above: Result Comment: Canc elled via OM: MD Ordered Performed By: #### L 500.2500, L100.0100 ####[facility] [address] [place], [address] MCHC Normal 32-36 [facility] Comment on above: Result Comment: Canc elled via OM: MD Ordered Performed By: #### L 500.2500, L100.0100 ####[facility] [address] [place], [address] MCV Normal 80-94 [facility] Comment on above: Result Comment: Canc elled via OM: MD Ordered Performed By: #### L 500.2500, L100.0100 ####[facility] [address] [place], [address] NEUT% Normal 47-70 [facility] Comment on above: Result Comment: Canc elled via OM: MD Ordered Performed By: #### L 500.2500, L100.0100 ####[facility] [address] [place], [address] PLT Normal 150-450 [facility] Comment on above: Result Comment: Canc elled via OM: MD Ordered Performed By: #### L 500.2500, L100.0100 ####[facility] [address] [place], [address] RBC Normal 4.6-6.2 [facility] Comment on above: Result Comment: Canc elled via OM: MD Ordered Performed By: #### L 500.2500, L100.0100 ####[facility] [address] [place], [address] RDW CV Normal 11.6-14.6 [facility] Comment on above: Result Comment: Canc elled via OM: MD Ordered Performed By: #### L 500.2500, L100.0100 ####[facility] [address] [place], [address] RDW SD Normal 35.1-43.9 [facility] Comment on above: Result Comment: Canc elled via OM: MD Ordered Performed By: #### L 500.2500, L100.0100 ####[facility] [address] [place], [address] WBC Normal 4.4-11.0 [facility] Comment on above: Result Comment: Canc elled via OM: MD Ordered Performed By: #### L 500.2500, L100.0100 ####[facility] [address] [place], [address] Basic Metabolic Profile (BMP )on 08-30-2024 BUN/CRE 21.4 RATIO High 10-20 [facility] Comment on above: Performed By: #### L 500.2500, L100.0100 ####[facility] [address] [place], [address] Calcium [Mass/Vol] 10.1 mg/dL Normal 7.6-11.0 [facility] Comment on above: Performed By: #### L 500.2500, L100.0100 ####[facility] [address] [place], [address] Chloride [Moles/Vol] 102 mmol/L Normal 98-108 [facility] Comment on above: Performed By: #### L 500.2500, L100.0100 ####[facility] [address] [place], [address] CO2 [Moles/Vol] 22.7 mmol/L Normal 21.0-32.0 [facility] Comment on above: Performed By: #### L 500.2500, L100.0100 ####[facility] [address] [place], [address] Creatinine [Mass/Vol] 1.21 mg/dL High 0.70-1.20 [facility] Comment on above: Performed By: #### L 500.2500, L100.0100 ####[facility] [address] [place], [address] ECRCL 51.03 ml/min Normal 50-250 [facility] Comment on above: Performed By: #### L 500.2500, L100.0100 ####[facility] [address] [place], [address] GAP 13 Normal 5-15 [facility] Comment on above: Performed By: #### L 500.2500, L100.0100 ####[facility] [address] [place], [address] GFR/1.73 sq M.predicted among non-blacks MDRD (S/P/Bld) [Vol rate/Area] 62 mL/min/{1.73_m2} Normal >60 [facility] Comment on above: Result Comment: mL/m in/1.73m2 CKD-EPI Creatinine Equation (2020) Performed By: #### L 500.2500, L100.0100 ####[facility] [address] [place], [address] Glucose [Mass/Vol] 94 mg/dL Normal 70-99 [facility] Comment on above: Performed By: #### L 500.2500, L100.0100 ####[facility] [address] [place], [address] Potassium [Moles/Vol] 4.2 mmol/L Normal 3.3-5.1 [facility] Comment on above: Performed By: #### L 500.2500, L100.0100 ####[facility] [address] [place], [address] Sodium [Moles/Vol] 138 mmol/L Normal 133-145 [facility] Comment on above: Performed By: #### L 500.2500, L100.0100 ####[facility] [address] [place], [address] Urea nitrogen [Mass/Vol] 26 mg/dL High 4-19 [facility] Comment on above: Performed By: #### L 500.2500, L100.0100 ####[facility] [address] [place], [address] CBC W/Diff, Automatedon 03- Absolute Lymph 1.00 X10 3/uL Normal 0.83-4.51 [facility] Comment on above: Performed By: #### L 500.2500, L100.0100 ####[facility] [address] [place], [address] Absolute Neut 3.7 X10 3/uL Normal 2.0-7.7 [facility] Comment on above: Performed By: #### L 500.2500, L100.0100 ####[facility] [address] [place], [address] Basophils/100 WBC (Bld) 1.6 % High 0-1 [facility] Comment on above: Performed By: #### L 500.2500, L100.0100 ####[facility] [address] [place], [address] Eosinophils/100 WBC (Bld) 7.8 % High 0-5 [facility] Comment on above: Performed By: #### L 500.2500, L100.0100 ####[facility] [address] [place], [address] Erythrocyte distribution width (RBC) [Ratio] 13.3 % Normal 11.6-14.6 [facility] Comment on above: Performed By: #### L 500.2500, L100.0100 ####[facility] [address] [place], [address] Hematocrit (Bld) [Volume fraction] 41.8 % Normal 40-54 [facility] Comment on above: Performed By: #### L 500.2500, L100.0100 ####[facility] [address] [place], [address] Hemoglobin (Bld) [Mass/Vol] 13.8 g/dL Normal 13.0-16.5 [facility] Comment on above: Performed By: #### L 500.2500, L100.0100 ####[facility] [address] [place], [address] IG% 0.400 Normal 0.0-0.9 [facility] Comment on above: Result Comment: IG% - Immature Granulocytes (promyelocytes, myelocytes andmetamyelocytes) > 1% indicates that a LEFT SHIFT is Present. Performed By: #### L 500.2500, L100.0100 ####[facility] [address] [place], [address] Lymphocytes/100 WBC (Bld) 17.8 % Low 19-41 [facility] Comment on above: Performed By: #### L 500.2500, L100.0100 ####[facility] [address] [place], [address] MCH (RBC) [Entitic mass] 31.9 pg Normal 27.0-32.0 [facility] Comment on above: Performed By: #### L 500.2500, L100.0100 ####[facility] [address] [place], [address] MCHC (RBC) [Mass/Vol] 33.0 g/dL Normal 32-36 [facility] Comment on above: Performed By: #### L 500.2500, L100.0100 ####[facility] [address] [place], [address] MCV (RBC) [Entitic vol] 96.5 fL High 80-94 [facility] Comment on above: Performed By: #### L 500.2500, L100.0100 ####[facility] [address] [place], [address] Monocytes/100 WBC (Bld) 7.6 % Normal 0-10 [facility] Comment on above: Performed By: #### L 500.2500, L100.0100 ####[facility] [address] [place], [address] Neutrophils/100 WBC (Bld) 64.8 % Normal 47-70 [facility] Comment on above: Performed By: #### L 500.2500, L100.0100 ####[facility] [address] [place], [address] Nucleated RBC (Bld) [#/Vol] 0 10*3/uL Normal 0-5 [facility] Comment on above: Performed By: #### L 500.2500, L100.0100 ####[facility] [address] [place], [address] Platelet mean volume (Bld) [Entitic vol] 9.7 fL Normal 6.2-12.0 [facility] Comment on above: Performed By: #### L 500.2500, L100.0100 ####[facility] [address] [place], [address] Platelets (Bld) [#/Vol] 309 10*3/uL Normal 150-450 [facility] Comment on above: Performed By: #### L 500.2500, L100.0100 ####[facility] [address] [place], [address] RBC (Bld) [#/Vol] 4.33 10*6/uL Low 4.6-6.2 [facility] Comment on above: Performed By: #### L 500.2500, L100.0100 ####[facility] [address] [place], [address] RDW SD 47.7 fl High 35.1-43.9 [facility] Comment on above: Performed By: #### L 500.2500, L100.0100 ####[facility] [address] [place], [address] WBC (Bld) [#/Vol] 5.6 10*3/uL Normal 4.4-11.0 [facility] Comment on above: Performed By: #### L 500.2500, L100.0100 ####[facility] [address] [place], [address] Consultation - Infectious Dx on 08-30-2024 Consultation - Infectious Dx Normal [facility] Basic Metabolic Profile (BMP )on 08-29-2024 BUN/CRE 24.6 RATIO High 10-20 [facility] Comment on above: Performed By: #### L 100.0100, L500.2500 ####[facility] [address] [place], [address] Calcium [Mass/Vol] 10.0 mg/dL Normal 7.6-11.0 [facility] Comment on above: Performed By: #### L 100.0100, L500.2500 ####[facility] [address] [place], [address] Chloride [Moles/Vol] 104 mmol/L Normal 98-108 [facility] Comment on above: Performed By: #### L 100.0100, L500.2500 ####[facility] [address] [place], [address] CO2 [Moles/Vol] 22.8 mmol/L Normal 21.0-32.0 [facility] Comment on above: Performed By: #### L 100.0100, L500.2500 ####[facility] [address] [place], [address] Creatinine [Mass/Vol] 1.21 mg/dL High 0.70-1.20 [facility] Comment on above: Performed By: #### L 100.0100, L500.2500 ####[facility] [address] [place], [address] ECRCL 51.03 ml/min Normal 50-250 [facility] Comment on above: Performed By: #### L 100.0100, L500.2500 ####[facility] [address] [place], [address] GAP 14 Normal 5-15 [facility] Comment on above: Performed By: #### L 100.0100, L500.2500 ####[facility] [address] [place], [address] GFR/1.73 sq M.predicted among non-blacks MDRD (S/P/Bld) [Vol rate/Area] 62 mL/min/{1.73_m2} Normal >60 [facility] Comment on above: Result Comment: mL/m in/1.73m2 CKD-EPI Creatinine Equation (2020) Performed By: #### L 100.0100, L500.2500 ####[facility] [address] [place], [address] Glucose [Mass/Vol] 91 mg/dL Normal 70-99 [facility] Comment on above: Performed By: #### L 100.0100, L500.2500 ####[facility] [address] [place], [address] Potassium [Moles/Vol] 4.1 mmol/L Normal 3.3-5.1 [facility] Comment on above: Performed By: #### L 100.0100, L500.2500 ####[facility] [address] [place], [address] Sodium [Moles/Vol] 141 mmol/L Normal 133-145 [facility] Comment on above: Performed By: #### L 100.0100, L500.2500 ####[facility] [address] [place], [address] Urea nitrogen [Mass/Vol] 30 mg/dL High 4-19 [facility] Comment on above: Performed By: #### L 100.0100, L500.2500 ####[facility] [address] [place], [address] CBC W/Diff, Automatedon - Absolute Lymph 1.17 X10 3/uL Normal 0.83-4.51 [facility] Comment on above: Performed By: #### L 100.0100, L500.2500 ####[facility] [address] [place], [address] Absolute Neut 3.1 X10 3/uL Normal 2.0-7.7 [facility] Comment on above: Performed By: #### L 100.0100, L500.2500 ####[facility] [address] [place], [address] Basophils/100 WBC (Bld) 1.3 % High 0-1 [facility] Comment on above: Performed By: #### L 100.0100, L500.2500 ####[facility] [address] [place], [address] Eosinophils/100 WBC (Bld) 8.2 % High 0-5 [facility] Comment on above: Performed By: #### L 100.0100, L500.2500 ####[facility] [address] [place], [address] Erythrocyte distribution width (RBC) [Ratio] 13.5 % Normal 11.6-14.6 [facility] Comment on above: Performed By: #### L 100.0100, L500.2500 ####[facility] [address] [place], [address] Hematocrit (Bld) [Volume fraction] 39.2 % Low 40-54 [facility] Comment on above: Performed By: #### L 100.0100, L500.2500 ####[facility] [address] [place], [address] Hemoglobin (Bld) [Mass/Vol] 12.8 g/dL Low 13.0-16.5 [facility] Comment on above: Performed By: #### L 100.0100, L500.2500 ####[facility] [address] [place], [address] IG% 0.400 Normal 0.0-0.9 [facility] Comment on above: Result Comment: IG% - Immature Granulocytes (promyelocytes, myelocytes andmetamyelocytes) > 1% indicates that a LEFT SHIFT is Present. Performed By: #### L 100.0100, L500.2500 ####[facility] [address] [place], [address] Lymphocytes/100 WBC (Bld) 22.3 % Normal 19-41 [facility] Comment on above: Performed By: #### L 100.0100, L500.2500 ####[facility] [address] [place], [address] MCH (RBC) [Entitic mass] 31.4 pg Normal 27.0-32.0 [facility] Comment on above: Performed By: #### L 100.0100, L500.2500 ####[facility] [address] [place], [address] MCHC (RBC) [Mass/Vol] 32.7 g/dL Normal 32-36 [facility] Comment on above: Performed By: #### L 100.0100, L500.2500 ####[facility] [address] [place], [address] MCV (RBC) [Entitic vol] 96.1 fL High 80-94 [facility] Comment on above: Performed By: #### L 100.0100, L500.2500 ####[facility] [address] [place], [address] Monocytes/100 WBC (Bld) 8.0 % Normal 0-10 [facility] Comment on above: Performed By: #### L 100.0100, L500.2500 ####[facility] [address] [place], [address] Neutrophils/100 WBC (Bld) 59.8 % Normal 47-70 [facility] Comment on above: Performed By: #### L 100.0100, L500.2500 ####[facility] [address] [place], [address] Nucleated RBC (Bld) [#/Vol] 0 10*3/uL Normal 0-5 [facility] Comment on above: Performed By: #### L 100.0100, L500.2500 ####[facility] [address] [place], [address] Platelet mean volume (Bld) [Entitic vol] 9.8 fL Normal 6.2-12.0 [facility] Comment on above: Performed By: #### L 100.0100, L500.2500 ####[facility] [address] [place], [address] Platelets (Bld) [#/Vol] 277 10*3/uL Normal 150-450 [facility] Comment on above: Performed By: #### L 100.0100, L500.2500 ####[facility] [address] [place], [address] RBC (Bld) [#/Vol] 4.08 10*6/uL Low 4.6-6.2 [facility] Comment on above: Performed By: #### L 100.0100, L500.2500 ####[facility] [address] [place], [address] RDW SD 47.8 fl High 35.1-43.9 [facility] Comment on above: Performed By: #### L 100.0100, L500.2500 ####[facility] [address] [place], [address] WBC (Bld) [#/Vol] 5.3 10*3/uL Normal 4.4-11.0 [facility] Comment on above: Performed By: #### L 100.0100, L500.2500 ####[facility] [address] [place], [address] Basic Metabolic Profile (BMP )on 08-28-2024 BUN/CRE 21.6 RATIO High 10-20 [facility] Comment on above: Performed By: #### L 100.0100, L500.2500 ####[facility] [address] [place], [address] Calcium [Mass/Vol] 9.8 mg/dL Normal 7.6-11.0 [facility] Comment on above: Performed By: #### L 100.0100, L500.2500 ####[facility] [address] [place], [address] Chloride [Moles/Vol] 105 mmol/L Normal 98-108 [facility] Comment on above: Performed By: #### L 100.0100, L500.2500 ####[facility] [address] [place], [address] CO2 [Moles/Vol] 21.9 mmol/L Normal 21.0-32.0 [facility] Comment on above: Performed By: #### L 100.0100, L500.2500 ####[facility] [address] [place], [address] Creatinine [Mass/Vol] 1.14 mg/dL Normal 0.70-1.20 [facility] Comment on above: Performed By: #### L 100.0100, L500.2500 ####[facility] [address] [place], [address] ECRCL 54.17 ml/min Normal 50-250 [facility] Comment on above: Performed By: #### L 100.0100, L500.2500 ####[facility] [address] [place], [address] GAP 13 Normal 5-15 [facility] Comment on above: Performed By: #### L 100.0100, L500.2500 ####[facility] [address] [place], [address] GFR/1.73 sq M.predicted among non-blacks MDRD (S/P/Bld) [Vol rate/Area] 67 mL/min/{1.73_m2} Normal >60 [facility] Comment on above: Result Comment: mL/m in/1.73m2 CKD-EPI Creatinine Equation (2020) Performed By: #### L 100.0100, L500.2500 ####[facility] [address] [place], [address] Glucose [Mass/Vol] 93 mg/dL Normal 70-99 [facility] Comment on above: Performed By: #### L 100.0100, L500.2500 ####[facility] [address] [place], [address] Potassium [Moles/Vol] 3.8 mmol/L Normal 3.3-5.1 [facility] Comment on above: Performed By: #### L 100.0100, L500.2500 ####[facility] [address] [place], [address] Sodium [Moles/Vol] 140 mmol/L Normal 133-145 [facility] Comment on above: Performed By: #### L 100.0100, L500.2500 ####[facility] [address] [place], [address] Urea nitrogen [Mass/Vol] 25 mg/dL High 4-19 [facility] Comment on above: Performed By: #### L 100.0100, L500.2500 ####[facility] [address] [place], [address] CBC W/Diff, Automatedon 08-17 Absolute Lymph 1.06 X10 3/uL Normal 0.83-4.51 [facility] Comment on above: Performed By: #### L 100.0100, L500.2500 ####[facility] [address] [place], [address] Absolute Neut 2.5 X10 3/uL Normal 2.0-7.7 [facility] Comment on above: Performed By: #### L 100.0100, L500.2500 ####[facility] [address] [place], [address] Basophils/100 WBC (Bld) 1.8 % High 0-1 [facility] Comment on above: Performed By: #### L 100.0100, L500.2500 ####[facility] [address] [place], [address] Eosinophils/100 WBC (Bld) 7.5 % High 0-5 [facility] Comment on above: Performed By: #### L 100.0100, L500.2500 ####[facility] [address] [place], [address] Erythrocyte distribution width (RBC) [Ratio] 13.3 % Normal 11.6-14.6 [facility] Comment on above: Performed By: #### L 100.0100, L500.2500 ####[facility] [address] [place], [address] Hematocrit (Bld) [Volume fraction] 39.0 % Low 40-54 [facility] Comment on above: Performed By: #### L 100.0100, L500.2500 ####[facility] [address] [place], [address] Hemoglobin (Bld) [Mass/Vol] 12.8 g/dL Low 13.0-16.5 [facility] Comment on above: Performed By: #### L 100.0100, L500.2500 ####[facility] [address] [place], [address] IG% 0.400 Normal 0.0-0.9 [facility] Comment on above: Result Comment: IG% - Immature Granulocytes (promyelocytes, myelocytes andmetamyelocytes) > 1% indicates that a LEFT SHIFT is Present. Performed By: #### L 100.0100, L500.2500 ####[facility] [address] [place], [address] Lymphocytes/100 WBC (Bld) 23.4 % Normal 19-41 [facility] Comment on above: Performed By: #### L 100.0100, L500.2500 ####[facility] [address] [place], [address] MCH (RBC) [Entitic mass] 31.1 pg Normal 27.0-32.0 [facility] Comment on above: Performed By: #### L 100.0100, L500.2500 ####[facility] [address] [place], [address] MCHC (RBC) [Mass/Vol] 32.8 g/dL Normal 32-36 [facility] Comment on above: Performed By: #### L 100.0100, L500.2500 ####[facility] [address] [place], [address] MCV (RBC) [Entitic vol] 94.7 fL High 80-94 [facility] Comment on above: Performed By: #### L 100.0100, L500.2500 ####[facility] [address] [place], [address] Monocytes/100 WBC (Bld) 11.3 % High 0-10 [facility] Comment on above: Performed By: #### L 100.0100, L500.2500 ####[facility] [address] [place], [address] Neutrophils/100 WBC (Bld) 55.6 % Normal 47-70 [facility] Comment on above: Performed By: #### L 100.0100, L500.2500 ####[facility] [address] [place], [address] Nucleated RBC (Bld) [#/Vol] 0 10*3/uL Normal 0-5 [facility] Comment on above: Performed By: #### L 100.0100, L500.2500 ####[facility] [address] [place], [address] Platelet mean volume (Bld) [Entitic vol] 9.8 fL Normal 6.2-12.0 [facility] Comment on above: Performed By: #### L 100.0100, L500.2500 ####[facility] [address] [place], [address] Platelets (Bld) [#/Vol] 279 10*3/uL Normal 150-450 [facility] Comment on above: Performed By: #### L 100.0100, L500.2500 ####[facility] [address] [place], [address] RBC (Bld) [#/Vol] 4.12 10*6/uL Low 4.6-6.2 [facility] Comment on above: Performed By: #### L 100.0100, L500.2500 ####[facility] [address] [place], [address] RDW SD 46.1 fl High 35.1-43.9 [facility] Comment on above: Performed By: #### L 100.0100, L500.2500 ####[facility] [address] [place], [address] WBC (Bld) [#/Vol] 4.5 10*3/uL Normal 4.4-11.0 [facility] Comment on above: Performed By: #### L 100.0100, L500.2500 ####[facility] [address] [place], [address] Basic Metabolic Profile (BMP )on 08-27-2024 BUN/CRE 17.2 RATIO Normal 10-20 [facility] Comment on above: Performed By: #### L 500.2500, L100.0100 ####[facility] [address] [place], [address] Calcium [Mass/Vol] 9.5 mg/dL Normal 7.6-11.0 [facility] Comment on above: Performed By: #### L 500.2500, L100.0100 ####[facility] [address] [place], [address] Chloride [Moles/Vol] 104 mmol/L Normal 98-108 [facility] Comment on above: Performed By: #### L 500.2500, L100.0100 ####[facility] [address] [place], [address] CO2 [Moles/Vol] 19.9 mmol/L Low 21.0-32.0 [facility] Comment on above: Performed By: #### L 500.2500, L100.0100 ####[facility] [address] [place], [address] Creatinine [Mass/Vol] 1.18 mg/dL Normal 0.70-1.20 [facility] Comment on above: Performed By: #### L 500.2500, L100.0100 ####[facility] [address] [place], [address] ECRCL 52.25 ml/min Normal 50-250 [facility] Comment on above: Performed By: #### L 500.2500, L100.0100 ####[facility] [address] [place], [address] GAP 14 Normal 5-15 [facility] Comment on above: Performed By: #### L 500.2500, L100.0100 ####[facility] [address] [place], [address] GFR/1.73 sq M.predicted among non-blacks MDRD (S/P/Bld) [Vol rate/Area] 64 mL/min/{1.73_m2} Normal >60 [facility] Comment on above: Result Comment: mL/m in/1.73m2 CKD-EPI Creatinine Equation (2020) Performed By: #### L 500.2500, L100.0100 ####[facility] [address] [place], [address] Glucose [Mass/Vol] 97 mg/dL Normal 70-99 [facility] Comment on above: Performed By: #### L 500.2500, L100.0100 ####[facility] [address] [place], [address] Potassium [Moles/Vol] 3.4 mmol/L Normal 3.3-5.1 [facility] Comment on above: Performed By: #### L 500.2500, L100.0100 ####[facility] [address] [place], [address] Sodium [Moles/Vol] 139 mmol/L Normal 133-145 [facility] Comment on above: Performed By: #### L 500.2500, L100.0100 ####[facility] [address] [place], [address] Urea nitrogen [Mass/Vol] 20 mg/dL High 4-19 [facility] Comment on above: Performed By: #### L 500.2500, L100.0100 ####[facility] [address] [place], [address] Bilirubin Test strip Ql (U)O rdered By: Celia Toribio on 08-27-2024 Bilirubin Ql (U) Negative Negative [facility] CBC W/Diff, Automatedon 08-17 Absolute Lymph 0.95 X10 3/uL Normal 0.83-4.51 [facility] Comment on above: Performed By: #### L 500.2500, L100.0100 ####[facility] [address] [place], [address] Absolute Neut 2.3 X10 3/uL Normal 2.0-7.7 [facility] Comment on above: Performed By: #### L 500.2500, L100.0100 ####[facility] [address] [place], [address] Basophils/100 WBC (Bld) 1.2 % High 0-1 [facility] Comment on above: Performed By: #### L 500.2500, L100.0100 ####[facility] [address] [place], [address] Eosinophils/100 WBC (Bld) 6.3 % High 0-5 [facility] Comment on above: Performed By: #### L 500.2500, L100.0100 ####[facility] [address] [place], [address] Erythrocyte distribution width (RBC) [Ratio] 13.3 % Normal 11.6-14.6 [facility] Comment on above: Performed By: #### L 500.2500, L100.0100 ####[facility] [address] [place], [address] Hematocrit (Bld) [Volume fraction] 38.4 % Low 40-54 [facility] Comment on above: Performed By: #### L 500.2500, L100.0100 ####[facility] [address] [place], [address] Hemoglobin (Bld) [Mass/Vol] 12.8 g/dL Low 13.0-16.5 [facility] Comment on above: Performed By: #### L 500.2500, L100.0100 ####[facility] [address] [place], [address] IG% 0.200 Normal 0.0-0.9 [facility] Comment on above: Result Comment: IG% - Immature Granulocytes (promyelocytes, myelocytes andmetamyelocytes) > 1% indicates that a LEFT SHIFT is Present. Performed By: #### L 500.2500, L100.0100 ####[facility] [address] [place], [address] Lymphocytes/100 WBC (Bld) 23.0 % Normal 19-41 [facility] Comment on above: Performed By: #### L 500.2500, L100.0100 ####[facility] [address] [place], [address] MCH (RBC) [Entitic mass] 31.4 pg Normal 27.0-32.0 [facility] Comment on above: Performed By: #### L 500.2500, L100.0100 ####[facility] [address] [place], [address] MCHC (RBC) [Mass/Vol] 33.3 g/dL Normal 32-36 [facility] Comment on above: Performed By: #### L 500.2500, L100.0100 ####[facility] [address] [place], [address] MCV (RBC) [Entitic vol] 94.3 fL High 80-94 [facility] Comment on above: Performed By: #### L 500.2500, L100.0100 ####[facility] [address] [place], [address] Monocytes/100 WBC (Bld) 13.1 % High 0-10 [facility] Comment on above: Performed By: #### L 500.2500, L100.0100 ####[facility] [address] [place], [address] Neutrophils/100 WBC (Bld) 56.2 % Normal 47-70 [facility] Comment on above: Performed By: #### L 500.2500, L100.0100 ####[facility] [address] [place], [address] Nucleated RBC (Bld) [#/Vol] 0 10*3/uL Normal 0-5 [facility] Comment on above: Performed By: #### L 500.2500, L100.0100 ####[facility] [address] [place], [address] Platelet mean volume (Bld) [Entitic vol] 10.0 fL Normal 6.2-12.0 [facility] Comment on above: Performed By: #### L 500.2500, L100.0100 ####[facility] [address] [place], [address] Platelets (Bld) [#/Vol] 253 10*3/uL Normal 150-450 [facility] Comment on above: Performed By: #### L 500.2500, L100.0100 ####[facility] [address] [place], [address] RBC (Bld) [#/Vol] 4.07 10*6/uL Low 4.6-6.2 [facility] Comment on above: Performed By: #### L 500.2500, L100.0100 ####[facility] [address] [place], [address] RDW SD 46.1 fl High 35.1-43.9 [facility] Comment on above: Performed By: #### L 500.2500, L100.0100 ####[facility] [address] [place], [address] WBC (Bld) [#/Vol] 4.1 10*3/uL Low 4.4-11.0 [facility] Comment on above: Performed By: #### L 500.2500, L100.0100 ####[facility] [address] [place], [address] CBC-Complete Blood Cnt No Di abdulkadiron 08-27-2024 Erythrocyte distribution width (RBC) [Ratio] 13.4 % Normal 11.6-14.6 [facility] Comment on above: Performed By: #### L 100.0500 ####[facility] [address] [place], [address] Hematocrit (Bld) [Volume fraction] 40.6 % Normal 40-54 [facility] Comment on above: Performed By: #### L 100.0500 ####[facility] [address] [place], [address] Hemoglobin (Bld) [Mass/Vol] 13.5 g/dL Normal 13.0-16.5 [facility] Comment on above: Performed By: #### L 100.0500 ####[facility] [address] [place], [address] MCH (RBC) [Entitic mass] 31.5 pg Normal 27.0-32.0 [facility] Comment on above: Performed By: #### L 100.0500 ####[facility] [address] [place], [address] MCHC (RBC) [Mass/Vol] 33.3 g/dL Normal 32-36 [facility] Comment on above: Performed By: #### L 100.0500 ####[facility] [address] [place], [address] MCV (RBC) [Entitic vol] 94.6 fL High 80-94 [facility] Comment on above: Performed By: #### L 100.0500 ####[facility] [address] [place], [address] Platelet mean volume (Bld) [Entitic vol] 9.8 fL Normal 6.2-12.0 [facility] Comment on above: Performed By: #### L 100.0500 ####[facility] [address] [place], [address] Platelets (Bld) [#/Vol] 283 10*3/uL Normal 150-450 [facility] Comment on above: Performed By: #### L 100.0500 ####[facility] [address] [place], [address] RBC (Bld) [#/Vol] 4.29 10*6/uL Low 4.6-6.2 [facility] Comment on above: Performed By: #### L 100.0500 ####[facility] [address] [place], [address] RDW SD 46.0 fl High 35.1-43.9 [facility] Comment on above: Performed By: #### L 100.0500 ####[facility] [address] [place], [address] WBC (Bld) [#/Vol] 4.9 10*3/uL Normal 4.4-11.0 [facility] Comment on above: Performed By: #### L 100.0500 ####[facility] [address] [place], [address] Epithelial cells.squamous LM Ql (Urine sed)Ordered By: Celia Toribio on 08-27-2024 Epithelial cells.squamous LM.HPF (Urine sed) [#/Area] 0 /[HPF] 0-5 [facility] Glucose Ql (U)Ordered By: Yariel Toribio on 08-27-2024 Urine Glucose (UA) Normal mg/dl Normal [facility] Ketones Test strip Ql (U)Ord ered By: Celia Toribio on 08-27-2024 Ketones Ql (U) Negative Negative [facility] Microscopic analysis of urin e for red blood cells (RBC)Ordered By: Celia Toribio on 08-27-2024 Microscopic analysis of urine for red blood cells (RBC) 0 SEEN /hpf 0-5 [facility] Urine RBC 0 SEEN /hpf 0-5 [facility] Mucus LM Ql (Urine sed)Order ed By: Celia Toribio on 08-27-2024 Mucus Ql (Urine sed) 0 SEEN /hpf [facility] Nitrite Test strip Ql (U)Ord ered By: Celia Toribio on 08-27-2024 Nitrite Ql (U) Positive High Negative [facility] Protein Test strip Ql (U)Ord ered By: Celia Toribio on 08-27-2024 Protein Ql (U) 30 mg/dl High Negative [facility] Squamous epithelial cells de tection in urine sediment by light microscopyOrdered By: Celia Toribio on 08-27-2024 Epithelial cells.squamous LM Ql (Urine sed) 0-5 SEEN /hpf 0-5 [facility] Urinalysis, Completeon 08-27 BACTERIA 4+ /hpf Normal None Seen [facility] Comment on above: Order Comment: CLEAN CATCH Performed By: #### M 100.2200, L400.0001 ####[facility] [address] [place], [address] EPI,SQUAMOUS 0-5 SEEN Normal 0-5 [facility] Comment on above: Order Comment: CLEAN CATCH Performed By: #### M 100.2200, L400.0001 ####[facility] [address] [place], [address] RBC 0 SEEN Normal 0-5 [facility] Comment on above: Order Comment: CLEAN CATCH Performed By: #### M 100.2200, L400.0001 ####[facility] [address] [place], [address] WBC 25-50 SEEN Normal 0-5 [facility] Comment on above: Order Comment: CLEAN CATCH Performed By: #### M 100.2200, L400.0001 ####[facility] [address] [place], [address] Mucus Ql (Urine sed) 0 SEEN Normal [facility] Comment on above: Order Comment: CLEAN CATCH Performed By: #### M 100.2200, L400.0001 ####[facility] [address] [place], [address] Urine blood detectionOrdered By: Celia Toribio on 08-27-2024 Urine Occult Blood Negative Negative [facility] Urine clarityOrdered By: Allyson Toribio on 08-27-2024 Clarity (U) Clear Clear [facility] Urine color determinationOrd ered By: Celia Toribio on 08-27-2024 Color (U) Yellow Yellow [facility] Urine cultureOrdered By: Allyson Toribio on 08-27-2024 Bacteria identified Cx Nom (U) ESBL Escherichia coli Abnormal [facility] Urine glucose detectionOrder ed By: Celia Toribio on 08-27-2024 Glucose Ql (U) Normal mg/dl Normal [facility] Urine leukocyte esterase det ection by dipstickOrdered By: Celia Toribio on 08-27-2024 Leukocyte esterase Test strip Ql (U) 500 /ul High Negative [facility] Urine pHOrdered By: Celia rapp on 08-27-2024 pH (U) 6.0 [pH] 5.0 - 8.0 [facility] Urine sediment bacteria coun t by microscopy (number/high power field)Ordered By: Celia Toribio on 08-27-2024 Bacteria LM.HPF (Urine sed) [#/Area] 4 /[HPF] None Seen [facility] Urine specific gravity measu rementOrdered By: Celia Toribio on 08-27-2024 Specific gravity (U) [Rel density] 1.015 1.002-1.030 [facility] Urine urobilinogen measureme ntOrdered By: Celia Toribio on 08-27-2024 Urobilinogen Ql (U) Normal mg/dl Normal [facility] Urobilinogen Ql (U)Ordered B y: Celia Toribio on 08-27-2024 Urine Urobilinogen Normal mg/dl Normal [facility] White blood cell countOrdere d By: Celia Toribio on 08-27-2024 Urine WBC 25-50 SEEN /hpf 0-5 [facility] White blood cell count 25-50 SEEN /hpf 0-5 [facility] Bilirubin, totalOrdered By: Lisha Talamantes on 08-26-2024 Bilirubin [Mass/Vol] 0.25 mg/dL 0.00-1.30 [facility] CBC W/Diff, Automatedon 03-1 0-2025 Absolute Lymph 0.94 X10 3/uL Normal 0.83-4.51 [facility] Comment on above: Performed By: #### L 500.4050, L501.5200, L100.0100, L501.2300 ####[facility] [address] [place], [address] Absolute Neut 2.9 X10 3/uL Normal 2.0-7.7 [facility] Comment on above: Performed By: #### L 500.4050, L501.5200, L100.0100, L501.2300 ####[facility] [address] [place], [address] Basophils/100 WBC (Bld) 1.1 % High 0-1 [facility] Comment on above: Performed By: #### L 500.4050, L501.5200, L100.0100, L501.2300 ####[facility] [address] [place], [address] Eosinophils/100 WBC (Bld) 3.4 % Normal 0-5 [facility] Comment on above: Performed By: #### L 500.4050, L501.5200, L100.0100, L501.2300 ####[facility] [address] [place], [address] Erythrocyte distribution width (RBC) [Ratio] 13.3 % Normal 11.6-14.6 [facility] Comment on above: Performed By: #### L 500.4050, L501.5200, L100.0100, L501.2300 ####[facility] [address] [place], [address] Hematocrit (Bld) [Volume fraction] 40.6 % Normal 40-54 [facility] Comment on above: Performed By: #### L 500.4050, L501.5200, L100.0100, L501.2300 ####[facility] [address] [place], [address] Hemoglobin (Bld) [Mass/Vol] 13.3 g/dL Normal 13.0-16.5 [facility] Comment on above: Performed By: #### L 500.4050, L501.5200, L100.0100, L501.2300 ####[facility] [address] [place], [address] IG% 0.200 Normal 0.0-0.9 [facility] Comment on above: Result Comment: IG% - Immature Granulocytes (promyelocytes, myelocytes andmetamyelocytes) > 1% indicates that a LEFT SHIFT is Present. Performed By: #### L 500.4050, L501.5200, L100.0100, L501.2300 ####[facility] [address] [place], [address] Lymphocytes/100 WBC (Bld) 19.8 % Normal 19-41 [facility] Comment on above: Performed By: #### L 500.4050, L501.5200, L100.0100, L501.2300 ####[facility] [address] [place], [address] MCH (RBC) [Entitic mass] 31.2 pg Normal 27.0-32.0 [facility] Comment on above: Performed By: #### L 500.4050, L501.5200, L100.0100, L501.2300 ####[facility] [address] [place], [address] MCHC (RBC) [Mass/Vol] 32.8 g/dL Normal 32-36 [facility] Comment on above: Performed By: #### L 500.4050, L501.5200, L100.0100, L501.2300 ####[facility] [address] [place], [address] MCV (RBC) [Entitic vol] 95.3 fL High 80-94 [facility] Comment on above: Performed By: #### L 500.4050, L501.5200, L100.0100, L501.2300 ####[facility] [address] [place], [address] Monocytes/100 WBC (Bld) 15.2 % High 0-10 [facility] Comment on above: Performed By: #### L 500.4050, L501.5200, L100.0100, L501.2300 ####[facility] [address] [place], [address] Neutrophils/100 WBC (Bld) 60.3 % Normal 47-70 [facility] Comment on above: Performed By: #### L 500.4050, L501.5200, L100.0100, L501.2300 ####[facility] [address] [place], [address] Nucleated RBC (Bld) [#/Vol] 0 10*3/uL Normal 0-5 [facility] Comment on above: Performed By: #### L 500.4050, L501.5200, L100.0100, L501.2300 ####[facility] [address] [place], [address] Platelet mean volume (Bld) [Entitic vol] 9.9 fL Normal 6.2-12.0 [facility] Comment on above: Performed By: #### L 500.4050, L501.5200, L100.0100, L501.2300 ####[facility] [address] [place], [address] Platelets (Bld) [#/Vol] 242 10*3/uL Normal 150-450 [facility] Comment on above: Performed By: #### L 500.4050, L501.5200, L100.0100, L501.2300 ####[facility] [address] [place], [address] RBC (Bld) [#/Vol] 4.26 10*6/uL Low 4.6-6.2 [facility] Comment on above: Performed By: #### L 500.4050, L501.5200, L100.0100, L501.2300 ####[facility] [address] [place], [address] RDW SD 46.7 fl High 35.1-43.9 [facility] Comment on above: Performed By: #### L 500.4050, L501.5200, L100.0100, L501.2300 ####[facility] [address] [place], [address] WBC (Bld) [#/Vol] 4.7 10*3/uL Normal 4.4-11.0 [facility] Comment on above: Performed By: #### L 500.4050, L501.5200, L100.0100, L501.2300 ####[facility] [address] [place], [address] COVID 19 AG RAPID (SEYMOUR Dixon)on 08-26-2024 SARS-CoV-2 (COVID-19) RNA ALEENA+probe Ql (Unsp spec) Normal [facility] Comment on above: Performed By: #### M 100.505 ####[facility] [address] [place], [address] COVID-19 virus antigen assay Ordered By: Celia Toribio on 08-26-2024 SARS-CoV-2 (COVID-19) Ag IA.rapid Ql (Resp) [facility] Comprehensive Metabolic Prof ilon 08-26-2024 Albumin [Mass/Vol] 4.0 g/dL Normal 3.4-4.8 [facility] Comment on above: Performed By: #### L 500.4050, L501.5200, L100.0100, L501.2300 ####[facility] [address] [place], [address] Albumin/Globulin [Mass ratio] 1.4 {ratio} Normal 0.9-2.4 [facility] Comment on above: Performed By: #### L 500.4050, L501.5200, L100.0100, L501.2300 ####[facility] [address] [place], [address] ALK PHOS 67 U/L Normal 40-129 [facility] Comment on above: Performed By: #### L 500.4050, L501.5200, L100.0100, L501.2300 ####[facility] [address] [place], [address] ALT [Catalytic activity/Vol] 28 U/L Normal <=46 [facility] Comment on above: Performed By: #### L 500.4050, L501.5200, L100.0100, L501.2300 ####[facility] [address] [place], [address] AST [Catalytic activity/Vol] 23 U/L Normal <=37 [facility] Comment on above: Performed By: #### L 500.4050, L501.5200, L100.0100, L501.2300 ####[facility] [address] [place], [address] Bilirubin [Mass/Vol] 0.25 mg/dL Normal 0.00-1.30 [facility] Comment on above: Performed By: #### L 500.4050, L501.5200, L100.0100, L501.2300 ####[facility] [address] [place], [address] BUN/CRE 21.8 RATIO High 10-20 [facility] Comment on above: Performed By: #### L 500.4050, L501.5200, L100.0100, L501.2300 ####[facility] [address] [place], [address] Calcium [Mass/Vol] 9.4 mg/dL Normal 7.6-11.0 [facility] Comment on above: Performed By: #### L 500.4050, L501.5200, L100.0100, L501.2300 ####[facility] [address] [place], [address] Chloride [Moles/Vol] 105 mmol/L Normal 98-108 [facility] Comment on above: Performed By: #### L 500.4050, L501.5200, L100.0100, L501.2300 ####[facility] [address] [place], [address] CO2 [Moles/Vol] 17.6 mmol/L Low 21.0-32.0 [facility] Comment on above: Performed By: #### L 500.4050, L501.5200, L100.0100, L501.2300 ####[facility] [address] [place], [address] Creatinine [Mass/Vol] 1.04 mg/dL Normal 0.70-1.20 [facility] Comment on above: Performed By: #### L 500.4050, L501.5200, L100.0100, L501.2300 ####[facility] [address] [place], [address] ECRCL 58.77 ml/min Normal 50-250 [facility] Comment on above: Performed By: #### L 500.4050, L501.5200, L100.0100, L501.2300 ####[facility] [address] [place], [address] GAP 16 High 5-15 [facility] Comment on above: Performed By: #### L 500.4050, L501.5200, L100.0100, L501.2300 ####[facility] [address] [place], [address] GFR/1.73 sq M.predicted among non-blacks MDRD (S/P/Bld) [Vol rate/Area] 75 mL/min/{1.73_m2} Normal >60 [facility] Comment on above: Result Comment: mL/m in/1.73m2 CKD-EPI Creatinine Equation (2020) Performed By: #### L 500.4050, L501.5200, L100.0100, L501.2300 ####[facility] [address] [place], [address] Globulin (S) [Mass/Vol] 2.9 g/dL Normal 2.2-4.2 [facility] Comment on above: Performed By: #### L 500.4050, L501.5200, L100.0100, L501.2300 ####[facility] [address] [place], [address] Glucose [Mass/Vol] 88 mg/dL Normal 70-99 [facility] Comment on above: Performed By: #### L 500.4050, L501.5200, L100.0100, L501.2300 ####[facility] [address] [place], [address] Potassium [Moles/Vol] 3.6 mmol/L Normal 3.3-5.1 [facility] Comment on above: Performed By: #### L 500.4050, L501.5200, L100.0100, L501.2300 ####[facility] [address] [place], [address] Sodium [Moles/Vol] 139 mmol/L Normal 133-145 [facility] Comment on above: Performed By: #### L 500.4050, L501.5200, L100.0100, L501.2300 ####[facility] [address] [place], [address] T PROT 6.9 g/dL Normal 5.9-8.4 [facility] Comment on above: Performed By: #### L 500.4050, L501.5200, L100.0100, L501.2300 ####[facility] [address] [place], [address] Urea nitrogen [Mass/Vol] 23 mg/dL High 4-19 [facility] Comment on above: Performed By: #### L 500.4050, L501.5200, L100.0100, L501.2300 ####[facility] [address] [place], [address] Laboratory - Chemistry and C hemistry - challengeOrdered By: Lisha Talamantes on 08-26-2024 AST [Catalytic activity/Vol] 23 U/L <38 [facility] Lactic Acidon 08-26-2024 Lactate [Moles/Vol] 1.1 mmol/L Normal 0.0-2.0 [facility] Comment on above: Order Comment: Y Performed By: #### L 503.6005 ####[facility] [address] [place], [address] Lactic acid measurementOrder ed By: Celia Toribio on 08-26-2024 Lactate [Moles/Vol] 1.1 mmol/L 0.0-2.0 [facility] Magnesiumon 08-26-2024 Magnesium [Mass/Vol] 1.9 mg/dL Normal 1.5-2.2 [facility] Comment on above: Performed By: #### L 500.4050, L501.5200, L100.0100, L501.2300 ####[facility] [address] [place], [place], [address] Magnesium (Unsp spec) [Mass/ Vol]Ordered By: Lisha Talamantes on 08-26-2024 Magnesium [Mass/Vol] 1.9 mg/dL 1.5-2.2 [facility] Magnesium measurement (mass/ volume)Ordered By: Lisha Talamantes on 08-26-2024 Magnesium (Unsp spec) [Mass/Vol] 1.9 mg/dL 1.5-2.2 [facility] No Panel InformationOrdered By: Lisha Talamantes on 08-26-2024 23 U/L <38 [facility] Phosphoruson 08-26-2024 Phosphate [Mass/Vol] 3.1 mg/dL Normal 2.7-4.5 [facility] Comment on above: Performed By: #### L 500.4050, L501.5200, L100.0100, L501.2300 ####[facility] [address] [place], [place], [id number] RESPIRATORY PANEL MOLECULARo n 08-26-2024 RP PANEL Normal [facility] Comment on above: Performed By: #### M 100.638 ####[facility] [address] [place], [place], [id number] Respiratory pathogens DNA an d RNA panel ALEENA+probe (Resp)Ordered By: Celia Toribio on 08-26-2024 Respiratory Panel (PCR) [facility] Respiratory pathogens detect ion panel by molecular detection methodOrdered By: Celia Toribio on 08-26-2024 Respiratory pathogens DNA and RNA panel ALEENA+probe (Resp) [facility] SARS-CoV-2 (COVID-19) Ag [place]. rapid Ql (Resp)Ordered By: Celia Toribio on 08-26-2024 SARS-CoV-2 Antigen (Rapid) [facility] Serum globulin measurementOr dered By: Lisha Talamantes on 08-26-2024 Globulin (S) [Mass/Vol] 2.9 g/dL 2.2-4.2 [facility] Serum or plasma alanine saul otransferase (ALT) measurementOrdered By: Lisha Talamantes on 08-26-2024 ALT [Catalytic activity/Vol] 28 U/L <47 [facility] Serum or plasma albumin luis urement (mass/volume)Ordered By: Lisha Talamantes on 08-26-2024 Albumin [Mass/Vol] 4.0 g/dL 3.4-4.8 [facility] Serum or plasma albumin/glob ulin mass ratioOrdered By: Lisha Talamantes on 08-26-2024 Albumin/Globulin [Mass ratio] 1.4 {ratio} 0.9-2.4 [facility] Serum or plasma alkaline kathleen sphatase measurementOrdered By: Lisha Talamantes on 08-26-2024 ALP [Catalytic activity/Vol] 67 U/L 40-129 [facility] Serum phosphorus measurement Ordered By: Lisha Talamantes on 08-26-2024 Phosphorus Level 3.1 mg/dL 2.7-4.5 [facility] Total proteinOrdered By: Ying Talamantes on 08-26-2024 Protein [Mass/Vol] 6.9 g/dL 5.9-8.4 [facility] Absolute neutrophil countOrd ered By: Jaden Jauregui on 08-25-2024 Neutrophils (Bld) [#/Vol] 4.6 10*3/uL 2.0-7.7 [facility] Anion gap in Serum or Plasma Ordered By: Jaden Jauregui on 08-25-2024 Anion gap [Moles/Vol] 13 mmol/L 5-15 [facility] BUN/creatinine ratioOrdered By: Jaden Jauregui on 08-25-2024 Urea nitrogen/Creatinine [Mass ratio] 21.4 mg/mg High 10-20 [facility] Basophil percentageOrdered B y: Jaden Jauregui on 08-25-2024 Basophils/100 WBC (Bld) 0.8 % 0-1 [facility] Bilirubin, totalOrdered By: Jaden Jauregui on 08-25-2024 Bilirubin [Mass/Vol] 0.22 mg/dL 0.00-1.30 [facility] CBC W/Diff, Automatedon Absolute Lymph 0.61 X10 3/uL Low 0.83-4.51 [facility] Comment on above: Performed By: #### L 500.4050, L100.0100 ####[facility] [address] [place], [address] Absolute Neut 4.6 X10 3/uL Normal 2.0-7.7 [facility] Comment on above: Performed By: #### L 500.4050, L100.0100 ####[facility] [address] [place], [address] Basophils/100 WBC (Bld) 0.8 % Normal 0-1 [facility] Comment on above: Performed By: #### L 500.4050, L100.0100 ####[facility] [address] [place], [address] Eosinophils/100 WBC (Bld) 0.3 % Normal 0-5 [facility] Comment on above: Performed By: #### L 500.4050, L100.0100 ####[facility] [address] [place], [address] Erythrocyte distribution width (RBC) [Ratio] 13.2 % Normal 11.6-14.6 [facility] Comment on above: Performed By: #### L 500.4050, L100.0100 ####[facility] [address] [place], [address] Hematocrit (Bld) [Volume fraction] 43.3 % Normal 40-54 [facility] Comment on above: Performed By: #### L 500.4050, L100.0100 ####[facility] [address] [place], [address] Hemoglobin (Bld) [Mass/Vol] 14.2 g/dL Normal 13.0-16.5 [facility] Comment on above: Performed By: #### L 500.4050, L100.0100 ####[facility] [address] [place], [address] IG% 0.300 Normal 0.0-0.9 [facility] Comment on above: Result Comment: IG% - Immature Granulocytes (promyelocytes, myelocytes andmetamyelocytes) > 1% indicates that a LEFT SHIFT is Present. Performed By: #### L 500.4050, L100.0100 ####[facility] [address] [place], [address] Lymphocytes/100 WBC (Bld) 10.3 % Low 19-41 [facility] Comment on above: Performed By: #### L 500.4050, L100.0100 ####[facility] [address] [place], [address] MCH (RBC) [Entitic mass] 31.4 pg Normal 27.0-32.0 [facility] Comment on above: Performed By: #### L 500.4050, L100.0100 ####[facility] [address] [place], [address] MCHC (RBC) [Mass/Vol] 32.8 g/dL Normal 32-36 [facility] Comment on above: Performed By: #### L 500.4050, L100.0100 ####[facility] [address] [place], [address] MCV (RBC) [Entitic vol] 95.8 fL High 80-94 [facility] Comment on above: Performed By: #### L 500.4050, L100.0100 ####[facility] [address] [place], [address] Monocytes/100 WBC (Bld) 9.9 % Normal 0-10 [facility] Comment on above: Performed By: #### L 500.4050, L100.0100 ####[facility] [address] [place], [address] Neutrophils/100 WBC (Bld) 78.4 % High 47-70 [facility] Comment on above: Performed By: #### L 500.4050, L100.0100 ####[facility] [address] [place], [address] Nucleated RBC (Bld) [#/Vol] 0 10*3/uL Normal 0-5 [facility] Comment on above: Performed By: #### L 500.4050, L100.0100 ####[facility] [address] [place], [address] Platelet mean volume (Bld) [Entitic vol] 9.5 fL Normal 6.2-12.0 [facility] Comment on above: Performed By: #### L 500.4050, L100.0100 ####[facility] [address] [place], [address] Platelets (Bld) [#/Vol] 245 10*3/uL Normal 150-450 [facility] Comment on above: Performed By: #### L 500.4050, L100.0100 ####[facility] [address] [place], [address] RBC (Bld) [#/Vol] 4.52 10*6/uL Low 4.6-6.2 [facility] Comment on above: Performed By: #### L 500.4050, L100.0100 ####[facility] [address] [place], [address] RDW SD 46.6 fl High 35.1-43.9 [facility] Comment on above: Performed By: #### L 500.4050, L100.0100 ####[facility] [address] [place], [address] WBC (Bld) [#/Vol] 5.9 10*3/uL Normal 4.4-11.0 [facility] Comment on above: Performed By: #### L 500.4050, L100.0100 ####[facility] [address] [place], [address] Carbon dioxide, total [Moles /volume] in Central venous bloodOrdered By: Jaden Jauregui on 08-25-2024 CO2 [Moles/Vol] 24.5 mmol/L 21.0-32.0 [facility] Chest 1 View (Portable)on Chest 1 View (Portable) Normal [facility] Chloride assayOrdered By: Joseph Jauregui on 08-25-2024 Chloride [Moles/Vol] 102 mmol/L 98-108 [facility] Comprehensive Metabolic Prof ilon 08-25-2024 Albumin [Mass/Vol] 4.5 g/dL Normal 3.4-4.8 [facility] Comment on above: Performed By: #### L 500.4050, L100.0100 ####[facility] [address] [place], [address] Albumin/Globulin [Mass ratio] 1.4 {ratio} Normal 0.9-2.4 [facility] Comment on above: Performed By: #### L 500.4050, L100.0100 ####[facility] [address] [place], [address] ALK PHOS 77 U/L Normal 40-129 [facility] Comment on above: Performed By: #### L 500.4050, L100.0100 ####[facility] [address] [place], [address] ALT [Catalytic activity/Vol] 32 U/L Normal <=46 [facility] Comment on above: Performed By: #### L 500.4050, L100.0100 ####[facility] [address] [place], [address] AST [Catalytic activity/Vol] 26 U/L Normal <=37 [facility] Comment on above: Performed By: #### L 500.4050, L100.0100 ####[facility] [address] [place], [address] Bilirubin [Mass/Vol] 0.22 mg/dL Normal 0.00-1.30 [facility] Comment on above: Performed By: #### L 500.4050, L100.0100 ####[facility] [address] [place], [address] BUN/CRE 21.4 RATIO High 10-20 [facility] Comment on above: Performed By: #### L 500.4050, L100.0100 ####[facility] [address] [place], [address] Calcium [Mass/Vol] 10.0 mg/dL Normal 7.6-11.0 [facility] Comment on above: Performed By: #### L 500.4050, L100.0100 ####[facility] [address] [place], [address] Chloride [Moles/Vol] 102 mmol/L Normal 98-108 [facility] Comment on above: Performed By: #### L 500.4050, L100.0100 ####[facility] [address] [place], [address] CO2 [Moles/Vol] 24.5 mmol/L Normal 21.0-32.0 [facility] Comment on above: Performed By: #### L 500.4050, L100.0100 ####[facility] [address] [place], [address] Creatinine [Mass/Vol] 1.17 mg/dL Normal 0.70-1.20 [facility] Comment on above: Performed By: #### L 500.4050, L100.0100 ####[facility] [address] [place], [address] GAP 13 Normal 5-15 [facility] Comment on above: Performed By: #### L 500.4050, L100.0100 ####[facility] [address] [place], [address] GFR/1.73 sq M.predicted among non-blacks MDRD (S/P/Bld) [Vol rate/Area] 65 mL/min/{1.73_m2} Normal >60 [facility] Comment on above: Result Comment: mL/m in/1.73m2 CKD-EPI Creatinine Equation (2020) Performed By: #### L 500.4050, L100.0100 ####[facility] [address] [place], [address] Globulin (S) [Mass/Vol] 3.2 g/dL Normal 2.2-4.2 [facility] Comment on above: Performed By: #### L 500.4050, L100.0100 ####[facility] [address] [place], [address] Glucose [Mass/Vol] 98 mg/dL Normal 70-99 [facility] Comment on above: Performed By: #### L 500.4050, L100.0100 ####[facility] [address] [place], [address] Potassium [Moles/Vol] 3.8 mmol/L Normal 3.3-5.1 [facility] Comment on above: Performed By: #### L 500.4050, L100.0100 ####[facility] [address] [place], [address] Sodium [Moles/Vol] 139 mmol/L Normal 133-145 [facility] Comment on above: Performed By: #### L 500.4050, L100.0100 ####[facility] [address] [place], [address] T PROT 7.7 g/dL Normal 5.9-8.4 [facility] Comment on above: Performed By: #### L 500.4050, L100.0100 ####[facility] [address] [place], [address] Urea nitrogen [Mass/Vol] 25 mg/dL High 4-19 [facility] Comment on above: Performed By: #### L 500.4050, L100.0100 ####[facility] [address] [place], [place], [id number] Emergency Department Summary on 08-25-2024 Emergency Department Summary Normal [facility] Eosinophil percentageOrdered By: Jaden Jauregui on 08-25-2024 Eosinophils/100 WBC (Bld) 0.3 % 0-5 [facility] Erythrocyte distribution wid th ratioOrdered By: Jaden Jauregui on 08-25-2024 Erythrocyte distribution width (RBC) [Ratio] 13.2 % 11.6-14.6 [facility] Erythrocyte distribution wid th standard deviationOrdered By: Jaden Jauregui on 08-25-2024 Erythrocyte distribution width (RBC) [Entitic vol] 46.6 fL High 35.1-43.9 [facility] GFR/1.73 sq M.predicted gisella g non-blacks MDRD (S/P/Bld) [Vol rate/Area]Ordered By: Jaden Jaureugi on 08-25-2024 Estimated GFR (MDRD) Non-Af Amer 65 >60 [facility] Comment on above: mL/min/1.73m2 CKD-EP I Creatinine Equation (2020) H AND P Exam - [facility] 08-25-2024 H&P Exam - Hospitalist Normal [facility] Hematocrit Auto (Bld) [Volum e fraction]Ordered By: Jaden Jauregui on 08-25-2024 Hematocrit (Bld) [Volume fraction] 43.3 % 40-54 [facility] Hemoglobin measurementOrdere d By: Jaden Jauregui on 08-25-2024 Hemoglobin (Bld) [Mass/Vol] 14.2 g/dL 13.0-16.5 [facility] Immature granulocytes/100 WB C Auto (Bld)Ordered By: Jaden Jauregui on 08-25-2024 Immature granulocytes/100 WBC (Bld) 0.300 % 0.0-0.9 [facility] Comment on above: IG% - Immature Granu locytes (promyelocytes, myelocytes and metamyelocytes) > 1% indicates that a LEFT SHIFT is Present. Laboratory - Chemistry and C hemistry - challengeOrdered By: Jaden Jauregui on 08-25-2024 AST [Catalytic activity/Vol] 26 U/L <38 [facility] Lymphocytes Auto (Unsp spec) [#/Vol]Ordered By: Jaden Jauregui on 08-25-2024 Lymphocytes (Bld) [#/Vol] 0.61 10*3/uL Low 0.83-4.51 [facility] Lymphocytes/100 WBC Auto (Un sp spec)Ordered By: Jaden Jauregui on 08-25-2024 Lymphocytes/100 WBC (Bld) 10.3 % Low 19-41 [facility] MCV (mean corpuscular volume ) determinationOrdered By: Jaden Jauregui on 08-25-2024 MCV (RBC) [Entitic vol] 95.8 fL High 80-94 [facility] Mean corpuscular hemoglobin (MCH) determinationOrdered By: Jaden Jauregui on 08-25-2024 MCH (RBC) [Entitic mass] 31.4 pg 27.0-32.0 [facility] Mean corpuscular hemoglobin concentration (MCHC) determinationOrdered By: Jaden Jauregui on 08-25-2024 MCHC (RBC) [Mass/Vol] 32.8 g/dL 32-36 [facility] Mean platelet volume determi nationOrdered By: Jaden Jauregui on 08-25-2024 Platelet mean volume (Bld) [Entitic vol] 9.5 fL 6.2-12.0 [facility] Monocyte percentageOrdered B y: Jaden Jauregui on 08-25-2024 Monocytes/100 WBC (Bld) 9.9 % 0-10 [facility] Neutrophil percentageOrdered By: Jaden Jauregui on 08-25-2024 Neutrophils/100 WBC (Bld) 78.4 % High 47-70 [facility] Nucleated red blood cell per centageOrdered By: Jaden Jauregui on 08-25-2024 Nucleated RBC/100 WBC (Bld) [Ratio] 0 % 0-5 [facility] Platelet countOrdered By: Joseph Jauregui on 08-25-2024 Platelets (Bld) [#/Vol] 245 10*3/uL 150-450 [facility] Potassium (Unsp spec) [Mass/ Vol]Ordered By: Jaden Jauregui on 08-25-2024 Potassium [Moles/Vol] 3.8 mmol/L 3.3-5.1 [facility] RBC Auto (Bld) [#/Vol]Ordere d By: Jaden Jauregui on 08-25-2024 RBC (Bld) [#/Vol] 4.52 10*6/uL Low 4.6-6.2 [facility] Serum creatinine measurement (mass/volume)Ordered By: Jaden Jauregui on 08-25-2024 Creatinine [Mass/Vol] 1.17 mg/dL 0.70-1.20 [facility] Serum globulin measurementOr dered By: Jaden Jauregui on 08-25-2024 Globulin (S) [Mass/Vol] 3.2 g/dL 2.2-4.2 [facility] Serum glucose measurement (m ass/volume)Ordered By: Jdaen Jauregui on 08-25-2024 Glucose [Mass/Vol] 98 mg/dL 70-99 [facility] Serum or plasma alanine saul otransferase (ALT) measurementOrdered By: Jaden Jauregui on 08-25-2024 ALT [Catalytic activity/Vol] 32 U/L <47 [facility] Serum or plasma albumin luis urement (mass/volume)Ordered By: Jaden Jauregui on 08-25-2024 Albumin [Mass/Vol] 4.5 g/dL 3.4-4.8 [facility] Serum or plasma albumin/glob ulin mass ratioOrdered By: Jaden Jauregui on 08-25-2024 Albumin/Globulin [Mass ratio] 1.4 {ratio} 0.9-2.4 [facility] Serum or plasma alkaline kathleen sphatase measurementOrdered By: Jaden Jauregui on 08-25-2024 ALP [Catalytic activity/Vol] 77 U/L 40-129 [facility] Serum or plasma calcium luis urement (mass/volume)Ordered By: Jaden Jauregui on 08-25-2024 Calcium [Mass/Vol] 10.0 mg/dL 7.6-11.0 [facility] Serum or plasma urea nitroge n measurement (mass/volume)Ordered By: Jaden Jauregui on 08-25-2024 Urea nitrogen [Mass/Vol] 25 mg/dL High 4-19 [facility] Sodium levelOrdered By: Maurice Jauregui on 08-25-2024 Sodium [Moles/Vol] 139 mmol/L 133-145 [facility] Total proteinOrdered By: Rad Jauregui on 08-25-2024 Protein [Mass/Vol] 7.7 g/dL 5.9-8.4 [facility] White blood cell (WBC) count Ordered By: Jaden Jauregui on 08-25-2024 WBC (Bld) [#/Vol] 5.9 10*3/uL 4.4-11.0 [facility] 99-FO-Seupyiy DOrdered By: Landry Crane on 07-15-2024 Vitamin D 25-Hydroxy 36.0 ng/mL [facility] Comment on above: Vitamin D 25(OH) Sta tus Range Deficiency <20 ng/mL (50nmol/L) Insufficiency 20 - 30 ng/mL (50 - 75 nmol/L) Sufficiency 30 - 100 ng/mL (75 - 250 nmol/L) Toxicity >100 ng/mL (>250 nmol/L) Absolute neutrophil countOrd ered By: Carla Crane on 07-15-2024 Neutrophils (Bld) [#/Vol] 2.7 10*3/uL 2.0-7.7 [facility] Albumin to globulin ratioOrd ered By: Carla Crane on 07-15-2024 Albumin/Globulin [Mass ratio] 1.0 {ratio} Normal 0.9-2.4 [facility] Comment on above: Order Comment: 414-2 Performed By: #### L 500.4050, L506.1000, L501.9985, L501.7900, L503.0105, L501.5200, L100.0100 ####[facility] [address] [place], [address] Basophil percentageOrdered B y: Carla Crane on 07-15-2024 Basophils/100 WBC (Bld) 1.4 % High 0-1 [facility] Bilirubin, totalOrdered By: Carla Crane on 07-15-2024 Bilirubin [Mass/Vol] 0.30 mg/dL Normal 0.20-1.00 [facility] Comment on above: For patients on eltr ombopag therapy, use of Dimension [place] TBIL is not recommended. Order Comment: 414-2 Result Comment: For patients on eltrombopag therapy, use of Dimension [place] TBIL is not recommended. Performed By: #### L 500.4050, L506.1000, L501.9985, L501.7900, L503.0105, L501.5200, L100.0100 ####[facility] [address] [place], [address](467) Blood urea nitrogen (BUN)/cr eatinine ratioOrdered By: Carla Crane on 07-15-2024 Urea nitrogen/Creatinine [Mass ratio] 25.4 mg/mg High 10-20 [facility] CBC W/Diff, Automatedon 06-20 Absolute Lymph 1.38 X10 3/uL Normal 0.83-4.51 [facility] Comment on above: Order Comment: 414-2 Performed By: #### L 500.4050, L506.1000, L501.9985, L501.7900, L503.0105, L501.5200, L100.0100 ####[facility] [address] [place], [address](911) Absolute Neut 2.7 X10 3/uL Normal 2.0-7.7 [facility] Comment on above: Order Comment: 414-2 Performed By: #### L 500.4050, L506.1000, L501.9985, L501.7900, L503.0105, L501.5200, L100.0100 ####[facility] [address] [place], [place], [id number](267) Basophils/100 WBC (Bld) 1.4 % High 0-1 [facility] Comment on above: Order Comment: 414-2 Performed By: #### L 500.4050, L506.1000, L501.9985, L501.7900, L503.0105, L501.5200, L100.0100 ####[facility] [address] [place], [address] Eosinophils/100 WBC (Bld) 9.4 % High 0-5 [facility] Comment on above: Order Comment: 414-2 Performed By: #### L 500.4050, L506.1000, L501.9985, L501.7900, L503.0105, L501.5200, L100.0100 ####[facility] [address] [place], [address] Erythrocyte distribution width (RBC) [Ratio] 12.8 % Normal 11.6-14.6 [facility] Comment on above: Order Comment: 414-2 Performed By: #### L 500.4050, L506.1000, L501.9985, L501.7900, L503.0105, L501.5200, L100.0100 ####[facility] [address] [place], [address] Hematocrit (Bld) [Volume fraction] 45.8 % Normal 40-54 [facility] Comment on above: Order Comment: 414-2 Performed By: #### L 500.4050, L506.1000, L501.9985, L501.7900, L503.0105, L501.5200, L100.0100 ####[facility] [address] [place], [address] Hemoglobin (Bld) [Mass/Vol] 14.8 g/dL Normal 13.0-16.5 [facility] Comment on above: Order Comment: 414-2 Performed By: #### L 500.4050, L506.1000, L501.9985, L501.7900, L503.0105, L501.5200, L100.0100 ####[facility] [address] [place], [address] IG% 0.400 Normal 0.0-0.9 [facility] Comment on above: Order Comment: 414-2 Result Comment: IG% - Immature Granulocytes (promyelocytes, myelocytes andmetamyelocytes) > 1% indicates that a LEFT SHIFT is Present. Performed By: #### L 500.4050, L506.1000, L501.9985, L501.7900, L503.0105, L501.5200, L100.0100 ####[facility] [address] [place], [address] Lymphocytes/100 WBC (Bld) 26.9 % Normal 19-41 [facility] Comment on above: Order Comment: 414-2 Performed By: #### L 500.4050, L506.1000, L501.9985, L501.7900, L503.0105, L501.5200, L100.0100 ####[facility] [address] [place], [address] MCH (RBC) [Entitic mass] 31.2 pg Normal 27.0-32.0 [facility] Comment on above: Order Comment: 414-2 Performed By: #### L 500.4050, L506.1000, L501.9985, L501.7900, L503.0105, L501.5200, L100.0100 ####[facility] [address] [place], [address] MCHC (RBC) [Mass/Vol] 32.3 g/dL Normal 32-36 [facility] Comment on above: Order Comment: 414-2 Performed By: #### L 500.4050, L506.1000, L501.9985, L501.7900, L503.0105, L501.5200, L100.0100 ####[facility] [address] [place], [address] MCV (RBC) [Entitic vol] 96.4 fL High 80-94 [facility] [facility] Comment on above: Order Comment: 414-2 Performed By: #### L 500.4050, L506.1000, L501.9985, L501.7900, L503.0105, L501.5200, L100.0100 ####[facility] [address] [place], [address] Monocytes/100 WBC (Bld) 8.8 % Normal 0-10 [facility] Comment on above: Order Comment: 414-2 Performed By: #### L 500.4050, L506.1000, L501.9985, L501.7900, L503.0105, L501.5200, L100.0100 ####[facility] [address] [place], [address] Neutrophils/100 WBC (Bld) 53.1 % Normal 47-70 [facility] Comment on above: Order Comment: 414-2 Performed By: #### L 500.4050, L506.1000, L501.9985, L501.7900, L503.0105, L501.5200, L100.0100 ####[facility] [address] [place], [address] Nucleated RBC (Bld) [#/Vol] 0 10*3/uL Normal 0-5 [facility] Comment on above: Order Comment: 414-2 Performed By: #### L 500.4050, L506.1000, L501.9985, L501.7900, L503.0105, L501.5200, L100.0100 ####[facility] [address] [place], [address] Platelet mean volume (Bld) [Entitic vol] 9.6 fL Normal 6.2-12.0 [facility] Comment on above: Order Comment: 414-2 Performed By: #### L 500.4050, L506.1000, L501.9985, L501.7900, L503.0105, L501.5200, L100.0100 ####[facility] [address] [place], [address] Platelets (Bld) [#/Vol] 295 10*3/uL Normal 150-450 [facility] Comment on above: Order Comment: 414-2 Performed By: #### L 500.4050, L506.1000, L501.9985, L501.7900, L503.0105, L501.5200, L100.0100 ####[facility] [address] [place], [address] RBC (Bld) [#/Vol] 4.75 10*6/uL Normal 4.6-6.2 [facility] Comment on above: Order Comment: 414-2 Performed By: #### L 500.4050, L506.1000, L501.9985, L501.7900, L503.0105, L501.5200, L100.0100 ####[facility] [address] [place], [address] RDW SD 45.4 fl High 35.1-43.9 [facility] Comment on above: Order Comment: 414-2 Performed By: #### L 500.4050, L506.1000, L501.9985, L501.7900, L503.0105, L501.5200, L100.0100 ####[facility] [address] [place], [address] WBC (Bld) [#/Vol] 5.1 10*3/uL Normal 4.4-11.0 [facility] Comment on above: Order Comment: 414-2 Performed By: #### L 500.4050, L506.1000, L501.9985, L501.7900, L503.0105, L501.5200, L100.0100 ####[facility] [address] [place], [address] Carbamazepine (Tegretol)on 0 07-15-2024 CARBAMAZEPINE 7.0 ug/mL Normal 4.0-12.0 [facility] Comment on above: Order Comment: 414-2 Performed By: #### L 500.4050, L506.1000, L501.9985, L501.7900, L503.0105, L501.5200, L100.0100 ####[facility] [address] [place], [place], [id number] Carbon dioxide measurementOr dered By: Carla Crane on 07-15-2024 CO2 [Moles/Vol] 24.0 mmol/L Normal 21.0-32.0 [facility] Comment on above: Order Comment: 414-2 Performed By: #### L 500.4050, L506.1000, L501.9985, L501.7900, L503.0105, L501.5200, L100.0100 ####[facility] [address] [place], [place], [id number] Chloride measurementOrdered By: Carla Crane on 07-15-2024 Chloride [Moles/Vol] 107 mmol/L Normal 98-107 [facility] Comment on above: Order Comment: 414-2 Performed By: #### L 500.4050, L506.1000, L501.9985, L501.7900, L503.0105, L501.5200, L100.0100 ####[facility] [address] [place], [place], [phone] Comprehensive Metabolic Prof ilon 07-15-2024 ALK P 70 U/L Normal 45-117 [facility] Comment on above: Order Comment: 414-2 Performed By: #### L 500.4050, L506.1000, L501.9985, L501.7900, L503.0105, L501.5200, L100.0100 ####[facility] [address] [place], [address] BUN/CRE 25.4 RATIO High 10-20 [facility] Comment on above: Order Comment: 414-2 Performed By: #### L 500.4050, L506.1000, L501.9985, L501.7900, L503.0105, L501.5200, L100.0100 ####[facility] [address] [place], [address] CA,Total 10.1 mg/dL Normal 8.5-10.1 [facility] Comment on above: Order Comment: 414-2 Performed By: #### L 500.4050, L506.1000, L501.9985, L501.7900, L503.0105, L501.5200, L100.0100 ####[facility] [address] [place], [address] EST GFR - AA 77 mL/min Normal >60 [facility] Comment on above: Order Comment: 414-2 Result Comment: Afri can Nigerian GFR Calc Performed By: #### L 500.4050, L506.1000, L501.9985, L501.7900, L503.0105, L501.5200, L100.0100 ####[facility] [address] [place], [address] GAP 7 Normal 5-15 [facility] Comment on above: Order Comment: 414-2 Performed By: #### L 500.4050, L506.1000, L501.9985, L501.7900, L503.0105, L501.5200, L100.0100 ####[facility] [address] [place], [address] GFR/1.73 sq M.predicted among non-blacks MDRD (S/P/Bld) [Vol rate/Area] 64 mL/min/{1.73_m2} Normal >60 [facility] Comment on above: Order Comment: 414-2 Result Comment: Non- GFR Calc Performed By: #### L 500.4050, L506.1000, L501.9985, L501.7900, L503.0105, L501.5200, L100.0100 ####[facility] [address] [place], [place], [id number] T PROT 8.0 g/dL Normal 6.4-8.2 [facility] Comment on above: Order Comment: 414-2 Performed By: #### L 500.4050, L506.1000, L501.9985, L501.7900, L503.0105, L501.5200, L100.0100 ####[facility] [address] [place], [place], [phone] Comprehensive Metabolic Prof ilOrdered By: Carla Crane on 07-15-2024 AST [Catalytic activity/Vol] 23 U/L Normal 15-37 [facility] Comment on above: Order Comment: 414-2 Performed By: #### L 500.4050, L506.1000, L501.9985, L501.7900, L503.0105, L501.5200, L100.0100 ####[facility] [address] [place], [place], [phone] Eosinophil percentageOrdered By: Carla Crane on 07-15-2024 Eosinophils/100 WBC (Bld) 9.4 % High 0-5 [facility] Erythrocyte distribution wid th ratioOrdered By: Carla Crane on 07-15-2024 Erythrocyte distribution width (RBC) [Ratio] 12.8 % 11.6-14.6 [facility] Erythrocyte distribution wid th standard deviationOrdered By: Carla Crane on 07-15-2024 Erythrocyte distribution width (RBC) [Entitic vol] 45.4 fL High 35.1-43.9 [facility] Estimated glomerular filtrat ion rate (GFR) AmericanOrdered By: Carla Crane on 07-15-2024 Estimated GFR (MDRD) Amer 77 mL/min >60 [facility] Comment on above: GFR Calc Glomerular filtration rate ( GFR) estimationOrdered By: Carla Crane on 07-15-2024 Estimated GFR (MDRD) Non-Af Amer 64 mL/min >60 [facility] Comment on above: Non- GFR Calc Glucose measurementOrdered B y: Carla Crane on 07-15-2024 Glucose [Mass/Vol] 103 mg/dL Normal 74-106 [facility] Comment on above: Fasting Glucose resu lt from 100 to 125 mg/dL suggests IMPAIRED HOMEOSTASIS per A.D.A. criteria. Order Comment: 414-2 Result Comment: Fast ing Glucose result from 100 to 125 mg/dLsuggests IMPAIRED HOMEOSTASIS per A.D.A. criteria. Performed By: #### L 500.4050, L506.1000, L501.9985, L501.7900, L503.0105, L501.5200, L100.0100 ####[facility] [address] [place], [address] Hematocrit Auto (Bld) [Volum e fraction]Ordered By: Carla Crane on 07-15-2024 Hematocrit (Bld) [Volume fraction] 45.8 % 40-54 [facility] Hemoglobin A1con 07-15-2024 HbA1c (Bld) [Mass fraction] 5.6 % Normal 3.8-5.6 [facility] Comment on above: Order Comment: 414-2 Result Comment: Norm al < 5.7 % Prediabetic 5.7 - 6.4 % Diabetic >or= 6.5 % Please note range changes. Performed By: #### L 500.4050, L506.1000, L501.9985, L501.7900, L503.0105, L501.5200, L100.0100 ####[facility] [address] [place], [address] Hemoglobin A1c percentageOrd ered By: Carla Crane on 07-15-2024 HbA1c (Bld) [Mass fraction] 5.6 % 3.8-5.6 [facility] Comment on above: Normal < 5.7 % Predi abetic 5.7 - 6.4 % Diabetic >or= 6.5 % Please note range changes. Hemoglobin measurementOrdere d By: Carla Crane on 07-15-2024 Hemoglobin (Bld) [Mass/Vol] 14.8 g/dL 13.0-16.5 [facility] Immature granulocytes/100 WB C Auto (Bld)Ordered By: Carla Crane on 07-15-2024 Immature granulocytes/100 WBC (Bld) 0.400 % 0.0-0.9 [facility] Comment on above: IG% - Immature Granu locytes (promyelocytes, myelocytes and metamyelocytes) > 1% indicates that a LEFT SHIFT is Present. Lymphocytes Auto (Unsp spec) [#/Vol]Ordered By: Carla Crane on 07-15-2024 Lymphocytes (Bld) [#/Vol] 1.38 10*3/uL 0.83-4.51 [facility] Lymphocytes/100 WBC Auto (Un sp spec)Ordered By: Carla Crane on 07-15-2024 Lymphocytes/100 WBC (Bld) 26.9 % 19-41 [facility] MCV (mean corpuscular volume ) determinationOrdered By: Carla Crane on 07-15-2024 MCV (RBC) [Entitic vol] 96.4 fL High 80-94 [facility] Magnesium measurementOrdered By: Carla Crane on 07-15-2024 Magnesium [Mass/Vol] 2.1 mg/dL Normal 1.6-2.6 [facility] Comment on above: Order Comment: 414-2 Performed By: #### L 500.4050, L506.1000, L501.9985, L501.7900, L503.0105, L501.5200, L100.0100 ####[facility] [address] [place], [place], [phone] Mean corpuscular hemoglobin (MCH) determinationOrdered By: Carla Crane on 07-15-2024 MCH (RBC) [Entitic mass] 31.2 pg 27.0-32.0 [facility] Mean corpuscular hemoglobin concentration (MCHC) determinationOrdered By: Carla Crane on 07-15-2024 MCHC (RBC) [Mass/Vol] 32.3 g/dL 32-36 [facility] Mean platelet volume determi nationOrdered By: Carla Crane on 07-15-2024 Platelet mean volume (Bld) [Entitic vol] 9.6 fL 6.2-12.0 [facility] Monocyte percentageOrdered B y: Carla Crane on 07-15-2024 Monocytes/100 WBC (Bld) 8.8 % 0-10 [facility] Neutrophil percentageOrdered By: Carla Crane on 07-15-2024 Neutrophils/100 WBC (Bld) 53.1 % 47-70 [facility] Nucleated red blood cell per centageOrdered By: Carla Crane on 07-15-2024 Nucleated RBC/100 WBC (Bld) [Ratio] 0 % 0-5 [facility] Platelet countOrdered By: Wilfredo Crane on 07-15-2024 Platelets (Bld) [#/Vol] 295 10*3/uL 150-450 [facility] Potassium measurementOrdered By: Carla Crane on 07-15-2024 Potassium [Moles/Vol] 3.8 mmol/L Normal 3.5-5.1 [facility] Comment on above: Order Comment: 414-2 Performed By: #### L 500.4050, L506.1000, L501.9985, L501.7900, L503.0105, L501.5200, L100.0100 ####[facility] [address] [place], [place], [phone] RBC Auto (Bld) [#/Vol]Ordere d By: Carla Crane on 07-15-2024 RBC (Bld) [#/Vol] 4.75 10*6/uL 4.6-6.2 [facility] Serum anion gap measurementO rdered By: Carla Crane on 07-15-2024 Anion gap [Moles/Vol] 7 mmol/L 5-15 [facility] Serum globulin measurementOr dered By: Carla Crane on 07-15-2024 Globulin (S) [Mass/Vol] 4.1 g/dL Normal 2.2-4.2 [facility] Comment on above: Order Comment: 414-2 Performed By: #### L 500.4050, L506.1000, L501.9985, L501.7900, L503.0105, L501.5200, L100.0100 ####[facility] [address] [place], [place], [phone] Serum or plasma alanine saul otransferase (ALT) measurementOrdered By: Carla Crane on 07-15-2024 ALT [Catalytic activity/Vol] 37 U/L Normal 16-61 [facility] Comment on above: Order Comment: 414-2 Performed By: #### L 500.4050, L506.1000, L501.9985, L501.7900, L503.0105, L501.5200, L100.0100 ####[facility] [address] [place], [place], [phone] Serum or plasma albumin luis urement (mass/volume)Ordered By: Carla Crane on 07-15-2024 Albumin [Mass/Vol] 3.9 g/dL Normal 3.2-5.0 [facility] Comment on above: Order Comment: 414-2 Performed By: #### L 500.4050, L506.1000, L501.9985, L501.7900, L503.0105, L501.5200, L100.0100 ####[facility] [address] [place], [place], [phone] Serum or plasma alkaline kathleen sphatase measurementOrdered By: Carla Crane on 07-15-2024 ALP [Catalytic activity/Vol] 70 U/L 45-117 [facility] Serum or plasma calcium luis urement (mass/volume)Ordered By: Carla Crane on 07-15-2024 Calcium [Mass/Vol] 10.1 mg/dL 8.5-10.1 [facility] Serum or plasma creatinine m easurement (mass/volume)Ordered By: Carla Crane on 07-15-2024 Creatinine [Mass/Vol] 1.18 mg/dL Normal 0.70-1.30 [facility] Comment on above: The validity of the calculated GFR & GFRAA in patients over 70 years has not been determined. Clinical correlation is essential. Order Comment: 414-2 Result Comment: The validity of the calculated GFR GFRAA in patients over70 years has not been determined. Clinical correlation isessential. Performed By: #### L 500.4050, L506.1000, L501.9985, L501.7900, L503.0105, L501.5200, L100.0100 ####[facility] [address] [place], [address] Serum or plasma urea nitroge n measurement (mass/volume)Ordered By: Carla Crane on 07-15-2024 Urea nitrogen [Mass/Vol] 30 mg/dL High 7-18 [facility] Comment on above: Order Comment: 414-2 Performed By: #### L 500.4050, L506.1000, L501.9985, L501.7900, L503.0105, L501.5200, L100.0100 ####[facility] [address] [place], [address] Sodium levelOrdered By: Luca Crane on 07-15-2024 Sodium [Moles/Vol] 138 mmol/L Normal 136-145 [facility] Comment on above: Order Comment: 414-2 Performed By: #### L 500.4050, L506.1000, L501.9985, L501.7900, L503.0105, L501.5200, L100.0100 ####[facility] [address] [place], [address] Total proteinOrdered By: Ming Crane on 07-15-2024 Protein [Mass/Vol] 8.0 g/dL 6.4-8.2 [facility] Vitamin B12on 07-15-2024 Cobalamin (Vitamin B12) [Mass/Vol] 692 pg/mL Normal 211-911 [facility] Comment on above: Order Comment: 414-2 Performed By: #### L 500.4050, L506.1000, L501.9985, L501.7900, L503.0105, L501.5200, L100.0100 ####[facility] [address] [place], [place], [phone] Vitamin B12 measurementOrder ed By: Carla Crane on 07-15-2024 Cobalamin (Vitamin B12) [Mass/Vol] 692 pg/mL 211-911 [facility] Vitamin D,25 Hydroxyon 07-15 Vitamin D 25-OH 36.0 ng/mL Normal [facility] Comment on above: Order Comment: 414-2 Result Comment: Teri min D 25(OH) Status Range Deficiency <20 ng/mL (50nmol/L) Insufficiency 20 - 30 ng/mL (50 - 75 nmol/L) Sufficiency 30 - 100 ng/mL (75 - 250 nmol/L) Toxicity >100 ng/mL (>250 nmol/L) Performed By: #### L 500.4050, L506.1000, L501.9985, L501.7900, L503.0105, L501.5200, L100.0100 ####[facility] [address] [place], [place], [phone] White blood cell (WBC) count Ordered By: Carla Crane on 07-15-2024 WBC (Bld) [#/Vol] 5.1 10*3/uL 4.4-11.0 [facility] carBAMazepine [Mass/Vol]Orde red By: Carla Crane on 07-15-2024 Carbamazepine (Tegretol) Level 7.0 ug/mL 4.0-12.0 [facility] Basic Metabolic Profile (BMP )on 04-15-2024 BUN Normal 7-18 [facility] Comment on above: Result Comment: Canc elled via OM: Order cancelled - Patient discharged Performed By: #### L 100.0100, L500.2500 ####[facility] [address] [place], [address] BUN/CRE Normal 10-20 [facility] Comment on above: Result Comment: Canc elled via OM: Order cancelled - Patient discharged Performed By: #### L 100.0100, L500.2500 ####[facility] [address] [place], [address] CA,Total Normal 8.5-10.1 [facility] Comment on above: Result Comment: Canc elled via OM: Order cancelled - Patient discharged Performed By: #### L 100.0100, L500.2500 ####[facility] [address] [place], [address] CL Normal 98-107 [facility] Comment on above: Result Comment: Canc elled via OM: Order cancelled - Patient discharged Performed By: #### L 100.0100, L500.2500 ####[facility] [address] [place], [address] CO2 Normal 21.0-32.0 [facility] Comment on above: Result Comment: Canc elled via OM: Order cancelled - Patient discharged Performed By: #### L 100.0100, L500.2500 ####[facility] [address] [place], [address] CREAT,SERUM Normal 0.70-1.30 [facility] Comment on above: Result Comment: Canc elled via OM: Order cancelled - Patient discharged Performed By: #### L 100.0100, L500.2500 ####[facility] [address] [place], [address] EST GFR Normal >60 [facility] Comment on above: Result Comment: Canc elled via OM: Order cancelled - Patient discharged Performed By: #### L 100.0100, L500.2500 ####[facility] [address] [place], [address] EST GFR - AA Normal >60 [facility] Comment on above: Result Comment: Canc elled via OM: Order cancelled - Patient discharged Performed By: #### L 100.0100, L500.2500 ####[facility] [address] [place], [address] GAP Normal 5-15 [facility] Comment on above: Result Comment: Canc elled via OM: Order cancelled - Patient discharged Performed By: #### L 100.0100, L500.2500 ####[facility] [address] [place], [address] GLU Normal 74-106 [facility] Comment on above: Result Comment: Canc elled via OM: Order cancelled - Patient discharged Performed By: #### L 100.0100, L500.2500 ####[facility] [address] [place], [address] Potassium Normal 3.5-5.1 [facility] Comment on above: Result Comment: Canc elled via OM: Order cancelled - Patient discharged Performed By: #### L 100.0100, L500.2500 ####[facility] [address] [place], [address] Basic Metabolic Profile (BMP) Normal 136-145 [facility] Comment on above: Result Comment: Canc elled via OM: Order cancelled - Patient discharged Performed By: #### L 100.0100, L500.2500 ####[facility] [address] [place], [address] CBC W/Diff, Automatedon 10-2 Absolute Neut Normal 2.0-7.7 [facility] Comment on above: Result Comment: Canc elled via OM: Order cancelled - Patient discharged Performed By: #### L 100.0100, L500.2500 ####[facility] [address] [place], [address] HCT Normal 40-54 [facility] Comment on above: Result Comment: Canc elled via OM: Order cancelled - Patient discharged Performed By: #### L 100.0100, L500.2500 ####[facility] [address] [place], [address] HGB Normal 13.0-16.5 [facility] Comment on above: Result Comment: Canc elled via OM: Order cancelled - Patient discharged Performed By: #### L 100.0100, L500.2500 ####[facility] [address] [place], [address] MCH Normal 27.0-32.0 [facility] Comment on above: Result Comment: Canc elled via OM: Order cancelled - Patient discharged Performed By: #### L 100.0100, L500.2500 ####[facility] [address] [place], [address] MCHC Normal 32-36 [facility] Comment on above: Result Comment: Canc elled via OM: Order cancelled - Patient discharged Performed By: #### L 100.0100, L500.2500 ####[facility] [address] [place], [address] MCV Normal 80-94 [facility] Comment on above: Result Comment: Canc elled via OM: Order cancelled - Patient discharged Performed By: #### L 100.0100, L500.2500 ####[facility] [address] [place], [address] NEUT% Normal 47-70 [facility] Comment on above: Result Comment: Canc elled via OM: Order cancelled - Patient discharged Performed By: #### L 100.0100, L500.2500 ####[facility] [address] [place], [address] PLT Normal 150-450 [facility] Comment on above: Result Comment: Canc elled via OM: Order cancelled - Patient discharged Performed By: #### L 100.0100, L500.2500 ####[facility] [address] [place], [address] RBC Normal 4.6-6.2 [facility] Comment on above: Result Comment: Canc elled via OM: Order cancelled - Patient discharged Performed By: #### L 100.0100, L500.2500 ####[facility] [address] [place], [address] RDW CV Normal 11.6-14.6 [facility] Comment on above: Result Comment: Canc elled via OM: Order cancelled - Patient discharged Performed By: #### L 100.0100, L500.2500 ####[facility] [address] [place], [address] RDW SD Normal 35.1-43.9 [facility] Comment on above: Result Comment: Canc elled via OM: Order cancelled - Patient discharged Performed By: #### L 100.0100, L500.2500 ####[facility] [address] [place], [address] WBC Normal 4.4-11.0 [facility] Comment on above: Result Comment: Canc elled via OM: Order cancelled - Patient discharged Performed By: #### L 100.0100, L500.2500 ####[facility] [address] [place], [address] Basic Metabolic Profile (BMP )on 04-14-2024 BUN Normal 7-18 [facility] Comment on above: Result Comment: Canc elled via OM: Order cancelled - Patient discharged Performed By: #### L 100.0100, L500.2500 ####[facility] [address] [place], [address] BUN/CRE Normal 10-20 [facility] Comment on above: Result Comment: Canc elled via OM: Order cancelled - Patient discharged Performed By: #### L 100.0100, L500.2500 ####[facility] [address] [place], [address] CA,Total Normal 8.5-10.1 [facility] Comment on above: Result Comment: Canc elled via OM: Order cancelled - Patient discharged Performed By: #### L 100.0100, L500.2500 ####[facility] [address] [place], [address] CL Normal 98-107 [facility] Comment on above: Result Comment: Canc elled via OM: Order cancelled - Patient discharged Performed By: #### L 100.0100, L500.2500 ####[facility] [address] [place], [address] CO2 Normal 21.0-32.0 [facility] Comment on above: Result Comment: Canc elled via OM: Order cancelled - Patient discharged Performed By: #### L 100.0100, L500.2500 ####[facility] [address] [place], [address] CREAT,SERUM Normal 0.70-1.30 [facility] Comment on above: Result Comment: Canc elled via OM: Order cancelled - Patient discharged Performed By: #### L 100.0100, L500.2500 ####[facility] [address] [place], [address] EST GFR Normal >60 [facility] Comment on above: Result Comment: Canc elled via OM: Order cancelled - Patient discharged Performed By: #### L 100.0100, L500.2500 ####[facility] [address] [place], [address] EST GFR - AA Normal >60 [facility] Comment on above: Result Comment: Canc elled via OM: Order cancelled - Patient discharged Performed By: #### L 100.0100, L500.2500 ####[facility] [address] [place], [address] GAP Normal 5-15 [facility] Comment on above: Result Comment: Canc elled via OM: Order cancelled - Patient discharged Performed By: #### L 100.0100, L500.2500 ####[facility] [address] [place], [address] GLU Normal 74-106 [facility] Comment on above: Result Comment: Canc elled via OM: Order cancelled - Patient discharged Performed By: #### L 100.0100, L500.2500 ####[facility] [address] [place], [address] Potassium Normal 3.5-5.1 [facility] Comment on above: Result Comment: Canc elled via OM: Order cancelled - Patient discharged Performed By: #### L 100.0100, L500.2500 ####[facility] [address] [place], [address] Basic Metabolic Profile (BMP) Normal 136-145 [facility] Comment on above: Result Comment: Canc elled via OM: Order cancelled - Patient discharged Performed By: #### L 100.0100, L500.2500 ####[facility] [address] [place], [address] CBC W/Diff, Automatedon 10-2 Absolute Neut Normal 2.0-7.7 [facility] Comment on above: Result Comment: Canc elled via OM: Order cancelled - Patient discharged Performed By: #### L 100.0100, L500.2500 ####[facility] [address] [place], [address] HCT Normal 40-54 [facility] Comment on above: Result Comment: Canc elled via OM: Order cancelled - Patient discharged Performed By: #### L 100.0100, L500.2500 ####[facility] [address] [place], [address] HGB Normal 13.0-16.5 [facility] Comment on above: Result Comment: Canc elled via OM: Order cancelled - Patient discharged Performed By: #### L 100.0100, L500.2500 ####[facility] [address] [place], [address] MCH Normal 27.0-32.0 [facility] Comment on above: Result Comment: Canc elled via OM: Order cancelled - Patient discharged Performed By: #### L 100.0100, L500.2500 ####[facility] [address] [place], [address] MCHC Normal 32-36 [facility] Comment on above: Result Comment: Canc elled via OM: Order cancelled - Patient discharged Performed By: #### L 100.0100, L500.2500 ####[facility] [address] [place], [address] MCV Normal 80-94 [facility] Comment on above: Result Comment: Canc elled via OM: Order cancelled - Patient discharged Performed By: #### L 100.0100, L500.2500 ####[facility] [address] [place], [address] NEUT% Normal 47-70 [facility] Comment on above: Result Comment: Canc elled via OM: Order cancelled - Patient discharged Performed By: #### L 100.0100, L500.2500 ####[facility] [address] [place], [address] PLT Normal 150-450 [facility] Comment on above: Result Comment: Canc elled via OM: Order cancelled - Patient discharged Performed By: #### L 100.0100, L500.2500 ####[facility] [address] [place], [address] RBC Normal 4.6-6.2 [facility] Comment on above: Result Comment: Canc elled via OM: Order cancelled - Patient discharged Performed By: #### L 100.0100, L500.2500 ####[facility] [address] [place], [address] RDW CV Normal 11.6-14.6 [facility] Comment on above: Result Comment: Canc elled via OM: Order cancelled - Patient discharged Performed By: #### L 100.0100, L500.2500 ####[facility] [address] [place], [address] RDW SD Normal 35.1-43.9 [facility] Comment on above: Result Comment: Canc elled via OM: Order cancelled - Patient discharged Performed By: #### L 100.0100, L500.2500 ####[facility] [address] [place], [address] WBC Normal 4.4-11.0 [facility] Comment on above: Result Comment: Canc elled via OM: Order cancelled - Patient discharged Performed By: #### L 100.0100, L500.2500 ####[facility] [address] [place], [address] UA DIP, URINE (POC)on 2023 BILIRUBIN UA (POCT) Negative Negative [facility] CLARITY UA (POCT) Cloudy [facility] COLOR UA (POCT) Yellow GLUCOSE UA (POCT) Negative Negative mg/dL Hemoglobin Ql (U) Negative Negative [facility] Interpretation and review of laboratory results Abnormal KETONE UA (POCT) Trace Negative mg/dL LEUKOCYTES UA (POCT) Trace Abnormal Negative [facility] NITRITE UA (POCT) Positive Abnormal Negative [facility] PH UA (POCT) 6.0 4.5 - 8.0 Protein Ql (U) 100 mg/dL Abnormal Negative SPECIFIC GRAVITY UA (POCT) 1.025 1.005 - 1.030 UROBILINOGEN UA (POCT) 0.2 Malaika l E.U./dL Location:[facility], [address] [facility], [place], [place], [id number] [place] [address] POINT OF CARE Absolute lymphocyte countOrd ered By: Brody Maynard on 07-31-2023 Lymphocytes Auto (Unsp spec) [#/Vol] 0.39 10*3/uL 0.83-4.51 [facility] Automated lymphocyte count a s percentage of total leukocytesOrdered By: Brody Maynard on 07-31-2023 Lymphocytes/100 WBC Auto (Unsp spec) 7.1 % 19-41 [facility] Basophil percentageOrdered B y: Brody Maynard on 07-31-2023 Basophil percentage 12.6 g/dL 13.0-16.5 [facility] Basophil percentage 113 mg/dL 74-106 [facility] Basophil percentage 139 mmol/L 136-145 [facility] Basophil percentage 4.0 mmol/L 3.5-5.1 [facility] Basophil percentage 102 mmol/L 98-107 [facility] Basophils (Bld) [#/Vol] 5.5 10*3/uL 4.4-11.0 [facility] Basophils (Bld) [#/Vol] 4.7 10*3/uL 2.0-7.7 [facility] Basophils/100 WBC (Bld) 85.0 % 47-70 [facility] Basophils/100 WBC (Bld) 7.1 % 0-10 [facility] Basophils/100 WBC (Bld) 0.0 % 0-5 [facility] Basophils/100 WBC (Bld) 0.4 % 0-1 [facility] Determination of erythrocyte mean corpuscular volume (MCV)Ordered By: Brody Maynard on 07-31-2023 MCV (RBC) [Entitic vol] 98.4 fL 80-94 [facility] Erythrocyte distribution wid th ratioOrdered By: Brody Maynard on 07-31-2023 Erythrocyte distribution width (RBC) [Ratio] 13.2 % 11.6-14.6 [facility] Erythrocyte distribution wid th standard deviationOrdered By: Brody Maynard on 07-31-2023 Erythrocyte distribution width (RBC) [Entitic vol] 47.2 fL 35.1-43.9 [facility] Hematocrit Auto (Bld) [Volum e fraction]Ordered By: Brody Maynard on 07-31-2023 Hematocrit (Bld) [Volume fraction] 37.9 % 40-54 [facility] Immature granulocytes/100 WB C Auto (Bld)Ordered By: Brody Maynard on 07-31-2023 Immature granulocytes/100 WBC (Bld) 0.400 % 0.0-0.9 [facility] No Panel InformationOrdered By: Brody Maynard on 07-31-2023 32.7 pg 27.0-32.0 [facility] 33.2 g/dL 32-36 [facility] 284 K/mm3 150-450 [facility] 10.1 fl 6.2-12.0 [facility] 0 % 0-5 [facility] 77 mL/min >60 [facility] 93 mL/min >60 [facility] 60.90 ml/min [facility] 22.8 RATIO 10-20 [facility] 29.0 mmol/L 21.0-32.0 [facility] RBC Auto (Bld) [#/Vol]Ordere d By: Brody Maynard on 07-31-2023 RBC (Bld) [#/Vol] 3.85 10*6/uL 4.6-6.2 [facility] Serum or plasma calcium luis urement (mass/volume)Ordered By: Brody Maynard on 07-31-2023 Calcium [Mass/Vol] 8.6 mg/dL 8.5-10.1 [facility] Serum or plasma creatinine m easurement (mass/volume)Ordered By: Brody Maynard on 07-31-2023 Creatinine [Mass/Vol] 1.01 mg/dL 0.70-1.30 [facility] Serum or plasma urea nitroge n measurement (mass/volume)Ordered By: Brody Maynard on 07-31-2023 Urea nitrogen [Mass/Vol] 23 mg/dL 7-18 [facility] Thin prep Papanicolaou smear with manual screeningOrdered By: Brody Maynard on 07-31-2023 Thin prep Papanicolaou smear with manual screening 8 5-15 [facility] Absolute lymphocyte countOrd ered By: Андрей Ng on 07-30-2023 Lymphocytes Auto (Unsp spec) [#/Vol] 0.60 10*3/uL 0.83-4.51 [facility] Automated lymphocyte count a s percentage of total leukocytesOrdered By: Андрей Ng on 07-30-2023 Lymphocytes/100 WBC Auto (Unsp spec) 10.9 % 19-41 [facility] Base excessOrdered By: ED [place] OVIDER on 07-30-2023 Base excess Calc (BldV) [Moles/Vol] 2 mmol/L -1.0-3.5 [facility] Basophil percentageOrdered B y: Андрей Ng on 07-30-2023 Basophil percentage 0 SEEN /hpf 0-5 [facility] Basophil percentage 13.3 g/dL 13.0-16.5 [facility] Basophil percentage 114 mg/dL 74-106 [facility] Basophil percentage 138 mmol/L 136-145 [facility] Basophil percentage 4.2 mmol/L 3.5-5.1 [facility] Basophil percentage 102 mmol/L 98-107 [facility] Basophils (Bld) [#/Vol] 5.5 10*3/uL 4.4-11.0 [facility] Basophils (Bld) [#/Vol] 4.2 10*3/uL 2.0-7.7 [facility] Basophils/100 WBC (Bld) 76.5 % 47-70 [facility] Basophils/100 WBC (Bld) 10.7 % 0-10 [facility] Basophils/100 WBC (Bld) 0.5 % 0-5 [facility] Basophils/100 WBC (Bld) 0.9 % 0-1 [facility] Bilirubin Test strip Ql (U)O rdered By: Андрей Ng on 07-30-2023 Bilirubin Ql (U) Negative Negative [facility] CO2 (BldV) [Moles/Vol]Ordere d By: ED PROVIDER on 07-30-2023 CO2 [Moles/Vol] 29 mmol/L 23-33 [facility] Determination of erythrocyte mean corpuscular volume (MCV)Ordered By: Андрей Ng on 07-30-2023 MCV (RBC) [Entitic vol] 99.3 fL 80-94 [facility] Erythrocyte distribution wid th ratioOrdered By: Андрей Ng on 07-30-2023 Erythrocyte distribution width (RBC) [Ratio] 13.2 % 11.6-14.6 [facility] Erythrocyte distribution wid th standard deviationOrdered By: Андрей Ng on 07-30-2023 Erythrocyte distribution width (RBC) [Entitic vol] 48.3 fL 35.1-43.9 [facility] Hematocrit Auto (Bld) [Volum e fraction]Ordered By: Андрей Ng on 07-30-2023 Hematocrit (Bld) [Volume fraction] 40.4 % 40-54 [facility] Immature granulocytes/100 WB C Auto (Bld)Ordered By: Андрей Ng on 07-30-2023 Immature granulocytes/100 WBC (Bld) 0.500 % 0.0-0.9 [facility] Ketones Test strip Ql (U)Ord ered By: Андрей Ng on 07-30-2023 Ketones Ql (U) Negative Negative [facility] Mucus LM Ql (Urine sed)Order ed By: Андрей Ng on 07-30-2023 Mucus Ql (Urine sed) 0 SEEN /hpf [facility] Nitrite Test strip Ql (U)Ord ered By: Андрей Ng on 07-30-2023 Nitrite Ql (U) Negative Negative [facility] No Panel InformationOrdered By: Андрей Ng on 07-30-2023 0 SEEN /hpf 0-5 [facility] Influenzae A [facility] 32.7 pg 27.0-32.0 [facility] 32.9 g/dL 32-36 [facility] 262 K/mm3 150-450 [facility] 9.4 fl 6.2-12.0 [facility] 0 % 0-5 [facility] 67 mL/min >60 [facility] 81 mL/min >60 [facility] 55.00 ml/min [facility] 22.8 RATIO 10-20 [facility] 15 pg/mL 3.0-78.0 [facility] 29.0 mmol/L 21.0-32.0 [facility] 218.8 pg/mL 0-100 [facility] No Panel InformationOrdered By: ED PROVIDER on 07-30-2023 LASHAE [facility] Not entered [facility] Cannula [facility] 3.0 [facility] 28 mmol/L 22-26 [facility] 69 % 50-70 [facility] PCO2 venousOrdered By: ED [place] OVIDER on 07-30-2023 CO2 (BldV) [Partial pressure] 48.6 mm[Hg] 41-51 [facility] PO2 venousOrdered By: ED PRO VIDER on 07-30-2023 Oxygen (BldV) [Partial pressure] 38 mm[Hg] 25-40 [facility] Protein Test strip Ql (U)Ord ered By: Андрей Ng on 07-30-2023 Protein Ql (U) 30 mg/dl Negative [facility] RBC Auto (Bld) [#/Vol]Ordere d By: Андрей Ng on 07-30-2023 RBC (Bld) [#/Vol] 4.07 10*6/uL 4.6-6.2 [facility] Serum or plasma calcium luis urement (mass/volume)Ordered By: Андрей Ng on 07-30-2023 Calcium [Mass/Vol] 9.2 mg/dL 8.5-10.1 [facility] Serum or plasma creatinine m easurement (mass/volume)Ordered By: Андрей Ng on 07-30-2023 Creatinine [Mass/Vol] 1.14 mg/dL 0.70-1.30 [facility] Serum or plasma urea nitroge n measurement (mass/volume)Ordered By: Андрей Ng on 07-30-2023 Urea nitrogen [Mass/Vol] 26 mg/dL 7-18 [facility] Squamous epithelial cells de tection in urine sediment by light microscopyOrdered By: Андрей Ng on 07-30-2023 Epithelial cells.squamous LM Ql (Urine sed) 0 SEEN /hpf 0-5 [facility] Thin prep Papanicolaou smear with manual screeningOrdered By: Андрей Ng on 07-30-2023 Thin prep Papanicolaou smear with manual screening 7 5-15 [facility] Urine blood detectionOrdered By: Андрей Ng on 07-30-2023 RBC Ql (U) 10 /ul Negative [facility] Urine clarityOrdered By: Italia Ng on 07-30-2023 Clarity (U) Clear Clear [facility] Urine color determinationOrd ered By: Андрей Ng on 07-30-2023 Color (U) Yellow Yellow [facility] Urine glucose detectionOrder ed By: Андрей Ng on 07-30-2023 Glucose Ql (U) Normal mg/dl Normal [facility] Urine leukocyte esterase det ection by dipstickOrdered By: Андрей Ng on 07-30-2023 Leukocyte esterase Test strip Ql (U) Negative Negative [facility] Urine pHOrdered By: Андрей garland on 07-30-2023 pH (U) 7.0 [pH] 5.0 - 8.0 [facility] Urine sediment bacteria coun t by microscopy (number/high power field)Ordered By: Андрей Ng on 07-30-2023 Bacteria LM.HPF (Urine sed) [#/Area] 0 /[HPF] None Seen [facility] Urine specific gravity measu rementOrdered By: Андрей Ng on 07-30-2023 Specific gravity (U) [Rel density] 1.010 1.002-1.030 [facility] Urine urobilinogen measureme ntOrdered By: Андрей Ng on 07-30-2023 Urobilinogen Ql (U) Normal mg/dl Normal [facility] Venous blood pH measurementO rdered By: ED PROVIDER on 07-30-2023 pH (BldV) 7.36 [pH] 7.32-7.42 [facility] Basophil percentageOrdered B y: Андрей Cooley on 07-27-2023 Basophil percentage 12.8 g/dL 13.0-16.5 [facility] Basophil percentage 103 mg/dL 74-106 [facility] Basophil percentage 141 mmol/L 136-145 [facility] Basophil percentage 3.7 mmol/L 3.5-5.1 [facility] Basophil percentage 110 mmol/L 98-107 [facility] Basophils (Bld) [#/Vol] 6.8 10*3/uL 4.4-11.0 [facility] Determination of erythrocyte mean corpuscular volume (MCV)Ordered By: Андрей Cooley on 07-27-2023 MCV (RBC) [Entitic vol] 98.5 fL 80-94 [facility] Erythrocyte distribution wid th ratioOrdered By: Андрей Cooley on 07-27-2023 Erythrocyte distribution width (RBC) [Ratio] 13.1 % 11.6-14.6 [facility] Erythrocyte distribution wid th standard deviationOrdered By: Андрей Cooley on 07-27-2023 Erythrocyte distribution width (RBC) [Entitic vol] 46.7 fL 35.1-43.9 [facility] Hematocrit Auto (Bld) [Volum e fraction]Ordered By: Андрей Cooley on 07-27-2023 Hematocrit (Bld) [Volume fraction] 38.9 % 40-54 [facility] No Panel InformationOrdered By: Андрей Cooley on 07-27-2023 32.4 pg 27.0-32.0 [facility] 32.9 g/dL 32-36 [facility] 246 K/mm3 150-450 [facility] 10.1 fl 6.2-12.0 [facility] 56 mL/min >60 [facility] 68 mL/min >60 [facility] 26.5 RATIO 10-20 [facility] 29.0 mmol/L 21.0-32.0 [facility] RBC Auto (Bld) [#/Vol]Ordere d By: Андрей Cooley on 07-27-2023 RBC (Bld) [#/Vol] 3.95 10*6/uL 4.6-6.2 [facility] Serum or plasma calcium luis urement (mass/volume)Ordered By: Андрей Cooley on 07-27-2023 Calcium [Mass/Vol] 9.5 mg/dL 8.5-10.1 [facility] Serum or plasma creatinine m easurement (mass/volume)Ordered By: Андрей Cooley on 07-27-2023 Creatinine [Mass/Vol] 1.32 mg/dL 0.70-1.30 [facility] Serum or plasma urea nitroge n measurement (mass/volume)Ordered By: Андрей Cooley on 07-27-2023 Urea nitrogen [Mass/Vol] 35 mg/dL 7-18 [facility] Thin prep Papanicolaou smear with manual screeningOrdered By: Андрей Cooley on 07-27-2023 Thin prep Papanicolaou smear with manual screening 2 5-15 [facility] Absolute lymphocyte countOrd ered By: Андрей Cooley on 07-25-2023 Lymphocytes Auto (Unsp spec) [#/Vol] 1.22 10*3/uL 0.83-4.51 [facility] Automated lymphocyte count a s percentage of total leukocytesOrdered By: Андрей Cooley on 07-25-2023 Lymphocytes/100 WBC Auto (Unsp spec) 17.6 % 19-41 [facility] Basophil percentageOrdered B y: Андрей Cooley on 07-25-2023 Basophil percentage 14.3 g/dL 13.0-16.5 [facility] Basophil percentage 126 mg/dL 74-106 [facility] Basophil percentage 138 mmol/L 136-145 [facility] Basophil percentage 3.5 mmol/L 3.5-5.1 [facility] Basophil percentage 105 mmol/L 98-107 [facility] Basophils (Bld) [#/Vol] 6.9 10*3/uL 4.4-11.0 [facility] Basophils (Bld) [#/Vol] 4.9 10*3/uL 2.0-7.7 [facility] Basophils/100 WBC (Bld) 70.5 % 47-70 [facility] Basophils/100 WBC (Bld) 10.0 % 0-10 [facility] Basophils/100 WBC (Bld) 0.7 % 0-5 [facility] Basophils/100 WBC (Bld) 0.9 % 0-1 [facility] Determination of erythrocyte mean corpuscular volume (MCV)Ordered By: Андрей Cooley on 07-25-2023 MCV (RBC) [Entitic vol] 95.2 fL 80-94 [facility] Erythrocyte distribution wid th ratioOrdered By: Андрей Cooley on 07-25-2023 Erythrocyte distribution width (RBC) [Ratio] 12.7 % 11.6-14.6 [facility] Erythrocyte distribution wid th standard deviationOrdered By: Андрей Cooley on 07-25-2023 Erythrocyte distribution width (RBC) [Entitic vol] 44.9 fL 35.1-43.9 [facility] Hematocrit Auto (Bld) [Volum e fraction]Ordered By: Андрей Cooley on 07-25-2023 Hematocrit (Bld) [Volume fraction] 41.9 % 40-54 [facility] Immature granulocytes/100 WB C Auto (Bld)Ordered By: Андрей Cooley on 07-25-2023 Immature granulocytes/100 WBC (Bld) 0.300 % 0.0-0.9 [facility] No Panel InformationOrdered By: Андрей Cooley on 07-25-2023 32.5 pg 27.0-32.0 [facility] 34.1 g/dL 32-36 [facility] 245 K/mm3 150-450 [facility] 9.7 fl 6.2-12.0 [facility] 0 % 0-5 [facility] 62 mL/min >60 [facility] 75 mL/min >60 [facility] 39.28 ml/min [facility] 13.2 RATIO 10-20 [facility] 25.0 mmol/L 21.0-32.0 [facility] RBC Auto (Bld) [#/Vol]Ordere d By: Андрей Cooley on 07-25-2023 RBC (Bld) [#/Vol] 4.40 10*6/uL 4.6-6.2 [facility] Serum or plasma calcium luis urement (mass/volume)Ordered By: Андрей Cooley on 07-25-2023 Calcium [Mass/Vol] 9.3 mg/dL 8.5-10.1 [facility] Serum or plasma creatinine m easurement (mass/volume)Ordered By: Андрей Cooley on 07-25-2023 Creatinine [Mass/Vol] 1.21 mg/dL 0.70-1.30 [facility] Serum or plasma urea nitroge n measurement (mass/volume)Ordered By: Андрей Cooley on 07-25-2023 Urea nitrogen [Mass/Vol] 16 mg/dL 7-18 [facility] Thin prep Papanicolaou smear with manual screeningOrdered By: Андрей Cooley on 07-25-2023 Thin prep Papanicolaou smear with manual screening 8 5-15 [facility] Absolute lymphocyte countOrd ered By: Raul Melchor on 07-24-2023 Lymphocytes Auto (Unsp spec) [#/Vol] 1.14 10*3/uL 0.83-4.51 [facility] Automated lymphocyte count a s percentage of total leukocytesOrdered By: Raul Melchor on 07-24-2023 Lymphocytes/100 WBC Auto (Unsp spec) 16.0 % 19-41 [facility] Basophil percentageOrdered B y: Raul Melchor on 07-24-2023 Basophils/100 WBC (Bld) 1.0 % 0-1 [facility] Chloride [Moles/Vol] 103 mmol/L 98-107 [facility] Eosinophils/100 WBC (Bld) 1.1 % 0-5 [facility] Glucose [Mass/Vol] 134 mg/dL 74-106 [facility] Comment on above: Fasting Glucose resu lt greater than or equal to 126 mg/dL suggests DIABETES MELLITUS per A.D.A. criteria. Hemoglobin (Bld) [Mass/Vol] 16.2 g/dL 13.0-16.5 [facility] Monocytes/100 WBC (Bld) 7.3 % 0-10 [facility] Neutrophils (Bld) [#/Vol] 5.3 10*3/uL 2.0-7.7 [facility] Neutrophils/100 WBC (Bld) 74.0 % 47-70 [facility] Potassium [Moles/Vol] 3.8 mmol/L 3.5-5.1 [facility] Comment on above: Moderate Hemolysis, Result may be falsely increased. Sodium [Moles/Vol] 139 mmol/L 136-145 [facility] WBC (Bld) [#/Vol] 7.1 10*3/uL 4.4-11.0 [facility] Determination of erythrocyte mean corpuscular volume (MCV)Ordered By: Raul Melchor on 07-24-2023 MCV (RBC) [Entitic vol] 94.8 fL 80-94 [facility] Erythrocyte distribution wid th ratioOrdered By: Raul Melchor on 07-24-2023 Erythrocyte distribution width (RBC) [Ratio] 12.8 % 11.6-14.6 [facility] Erythrocyte distribution wid th standard deviationOrdered By: Raul Melchor on 07-24-2023 Erythrocyte distribution width (RBC) [Entitic vol] 44.3 fL 35.1-43.9 [facility] Hematocrit Auto (Bld) [Volum e fraction]Ordered By: Raul Melchor on 07-24-2023 Hematocrit (Bld) [Volume fraction] 47.4 % 40-54 [facility] Immature granulocytes/100 WB C Auto (Bld)Ordered By: Raul Melchor on 07-24-2023 Immature granulocytes/100 WBC (Bld) 0.600 % 0.0-0.9 [facility] Comment on above: IG% - Immature Granu locytes (promyelocytes, myelocytes and metamyelocytes) > 1% indicates that a LEFT SHIFT is Present. Laboratory - Chemistry and C hemistry - challengeOrdered By: Raul Melchor on 07-24-2023 CO2 [Moles/Vol] 28.0 mmol/L 21.0-32.0 [facility] Urea nitrogen/Creatinine [Mass ratio] 14.1 mg/mg 10-20 [facility] Laboratory - Hematology and Cell countsOrdered By: Raul Melchor on 07-24-2023 MCH (RBC) [Entitic mass] 32.4 pg 27.0-32.0 [facility] MCHC (RBC) [Mass/Vol] 34.2 g/dL 32-36 [facility] Nucleated RBC/100 WBC (Bld) [Ratio] 0 % 0-5 [facility] Platelets (Bld) [#/Vol] 285 10*3/uL 150-450 [facility] No Panel InformationOrdered By: Raul Melchor on 07-24-2023 Estimated Creatinine Clearance Calc 48.70 ml/min [facility] Estimated GFR (MDRD) Amer 71 mL/min >60 [facility] Comment on above: GFR Calc Estimated GFR (MDRD) Non-Af Amer 58 mL/min >60 [facility] Comment on above: Non- GFR Calc Platelet mean volume Ye-Ec ker (Bld) [Entitic vol]Ordered By: Raul Melchor on 07-24-2023 Platelet mean volume (Bld) [Entitic vol] 9.8 fL 6.2-12.0 [facility] RBC Auto (Bld) [#/Vol]Ordere d By: Raul Melchor on 07-24-2023 RBC (Bld) [#/Vol] 5.00 10*6/uL 4.6-6.2 [facility] Serum or plasma calcium luis urement (mass/volume)Ordered By: Raul Melchor on 07-24-2023 Calcium [Mass/Vol] 9.8 mg/dL 8.5-10.1 [facility] Serum or plasma creatinine m easurement (mass/volume)Ordered By: Raul Melchor on 07-24-2023 Creatinine [Mass/Vol] 1.28 mg/dL 0.70-1.30 [facility] Comment on above: The validity of the calculated GFR & GFRAA in patients over 70 years has not been determined. Clinical correlation is essential. Serum or plasma urea nitroge n measurement (mass/volume)Ordered By: Raul Melchor on 07-24-2023 Urea nitrogen [Mass/Vol] 18 mg/dL 7-18 [facility] Thin prep Papanicolaou smear with manual screeningOrdered By: Raul Melchor on 07-24-2023 Thin prep Papanicolaou smear with manual screening 8 5-15 [facility] UAon 07-10-2023 Color (U) Yellow Normal [facility] ([place]) Comment on above: Performed By: #### U A #### [address] [address] Glucose (U) [Mass/Vol] Negative Normal Negative [facility] ([place]) Comment on above: Performed By: #### U A #### [address] [address] Ketones Ql (U) Negative Normal Neg-Trace [facility] ([place]) Comment on above: Performed By: #### U A #### [address] [address] UA Appear Clear Normal Clear [facility] ([place]) Comment on above: Performed By: #### U A #### [address] [address] UA Blood Negative Normal Neg-Trace [facility] ([place]) Comment on above: Performed By: #### U A #### [address] [address] UA Leuk Est Negative Normal Negative [facility] ([place] Comment on above: Performed By: #### U A #### [address] [address] UA Nitrite Negative Normal Negative [facility] ([place] Comment on above: Performed By: #### U A #### [place] [address] UA pH 5.5 Normal 5.0 - 8.0 [facility] ([place] Comment on above: Performed By: #### U A #### [place] [address] UA Protein 30 mg/dL Normal Negative [facility] ([place] Comment on above: Performed By: #### U A #### [place] [address] UA Spec Grav 1.020 Normal 1.006-1.029 [facility] ([place] Comment on above: Performed By: #### U A #### [place] [address] UA Specimen Type Void Normal [facility] ([place] Comment on above: Performed By: #### U A #### [place] [address] UA Urobilinogen 0.2 E.U./dL Normal 0.2-1.0 [facility] ([place]) Comment on above: Performed By: #### U A #### [place] [address] Urobilinogen (U) [Mass/Vol] Negative Normal Neg-Trace [facility] ([place] Comment on above: Performed By: #### U A #### [place] [address] Absolute lymphocyte countOrd ered By: Daija Morton on 06-14-2023 Lymphocytes Auto (Unsp spec) [#/Vol] 1.09 10*3/uL 0.83-4.51 [facility] Basophil percentageOrdered B y: Daija Morton on 06-14-2023 Basophil percentage 108 mg/dL 74-106 [facility] Basophil percentage 139 mmol/L 136-145 [facility] Basophil percentage 4.2 mmol/L 3.5-5.1 [facility] Basophil percentage 104 mmol/L 98-107 [facility] Basophils (Bld) [#/Vol] 6.5 10*3/uL 4.4-11.0 [facility] Basophils (Bld) [#/Vol] 4.7 10*3/uL 2.0-7.7 [facility] Basophils/100 WBC (Bld) 1.4 % 0-1 [facility] Basophils/100 WBC (Bld) 72.2 % 47-70 [facility] Basophils/100 WBC (Bld) 2.0 % 0-5 [facility] Chloride [Moles/Vol] 104 mmol/L 98-107 [facility] Eosinophils/100 WBC (Bld) 2.0 % 0-5 [facility] Glucose [Mass/Vol] 108 mg/dL 74-106 [facility] Comment on above: Fasting Glucose resu lt from 100 to 125 mg/dL suggests IMPAIRED HOMEOSTASIS per A.D.A. criteria. Neutrophils (Bld) [#/Vol] 4.7 10*3/uL 2.0-7.7 [facility] Neutrophils/100 WBC (Bld) 72.2 % 47-70 [facility] Potassium [Moles/Vol] 4.2 mmol/L 3.5-5.1 [facility] Sodium [Moles/Vol] 139 mmol/L 136-145 [facility] WBC (Bld) [#/Vol] 6.5 10*3/uL 4.4-11.0 [facility] Blood erythrocytes count (nu mber/volume)Ordered By: Daija Morton on 06-14-2023 RBC (Bld) [#/Vol] 4.73 10*6/uL 4.6-6.2 [facility] Blood hemoglobin measurement (mass/volume)Ordered By: Daija Morton on 06-14-2023 Hemoglobin (Bld) [Mass/Vol] 15.8 g/dL 13.0-16.5 [facility] Blood lymphocytes/100 leukoc ytesOrdered By: Daija Morton on 06-14-2023 Lymphocytes/100 WBC (Bld) 16.8 % 19-41 [facility] Blood monocytes/100 leukocyt esOrdered By: Daija Morton on 06-14-2023 Monocytes/100 WBC (Bld) 7.1 % 0-10 [facility] Blood platelet mean volumeOr dered By: Daija Morton on 06-14-2023 Platelet mean volume (Bld) [Entitic vol] 9.9 fL 6.2-12.0 [facility] Determination of erythrocyte mean corpuscular volume (MCV)Ordered By: Daija Morton on 06-14-2023 MCV (RBC) [Entitic vol] 96.6 fL 80-94 [facility] Hematocrit Auto (Bld) [Volum e fraction]Ordered By: Daija Morton on 06-14-2023 Hematocrit (Bld) [Volume fraction] 45.7 % 40-54 [facility] Laboratory - Chemistry and C hemistry - challengeOrdered By: Daija Morton on 06-14-2023 CO2 [Moles/Vol] 30.0 mmol/L 21.0-32.0 [facility] Urea nitrogen/Creatinine [Mass ratio] 16.1 mg/mg 10-20 [facility] Laboratory - Hematology and Cell countsOrdered By: Daija Morton on 06-14-2023 Erythrocyte distribution width (RBC) [Entitic vol] 46.5 fL 35.1-43.9 [facility] Erythrocyte distribution width (RBC) [Ratio] 13.1 % 11.6-14.6 [facility] Immature granulocytes/100 WBC (Bld) 0.500 % 0.0-0.9 [facility] Comment on above: IG% - Immature Granu locytes (promyelocytes, myelocytes and metamyelocytes) > 1% indicates that a LEFT SHIFT is Present. MCH (RBC) [Entitic mass] 33.4 pg 27.0-32.0 [facility] Nucleated RBC/100 WBC (Bld) [Ratio] 0 % 0-5 [facility] MCHC Auto (RBC) [Mass/Vol]Or dered By: Daija Morton on 06-14-2023 MCHC (RBC) [Mass/Vol] 34.6 g/dL 32-36 [facility] No Panel InformationOrdered By: Daija Morton on 06-14-2023 Estimated GFR (MDRD) Amer 73 mL/min >60 [facility] Comment on above: GFR Calc Estimated GFR (MDRD) Non-Af Amer 61 mL/min >60 [facility] Comment on above: Non- GFR Calc 33.4 pg 27.0-32.0 [facility] 13.1 % 11.6-14.6 [facility] 46.5 fl 35.1-43.9 [facility] 0.500 % 0.0-0.9 [facility] 0 % 0-5 [facility] 61 mL/min >60 [facility] 73 mL/min >60 [facility] 16.1 RATIO 10-20 [facility] 30.0 mmol/L 21.0-32.0 [facility] Platelets bldOrdered By: Nemesio Morton on 06-14-2023 Platelets (Bld) [#/Vol] 285 10*3/uL 150-450 [facility] Serum or plasma calcium luis urement (mass/volume)Ordered By: Daija Morton on 06-14-2023 Calcium [Mass/Vol] 9.8 mg/dL 8.5-10.1 [facility] Serum or plasma creatinine m easurement (mass/volume)Ordered By: Daija Morton on 06-14-2023 Creatinine [Mass/Vol] 1.24 mg/dL 0.70-1.30 [facility] Comment on above: The validity of the calculated GFR & GFRAA in patients over 70 years has not been determined. Clinical correlation is essential. Serum or plasma urea nitroge n measurement (mass/volume)Ordered By: Daija Morton on 06-14-2023 Urea nitrogen [Mass/Vol] 20 mg/dL 7-18 [facility] Thin prep Papanicolaou smear with manual screeningOrdered By: Daija Morton on 06-14-2023 Thin prep Papanicolaou smear with manual screening 5 5-15 [facility] Basophil percentageOrdered B y: Андрей Cooley on 05-19-2023 Basophil percentage 100 mg/dL 74-106 [facility] Basophil percentage 6.5 g/dL 6.4-8.2 [facility] Basophil percentage 0.30 mg/dL 0.20-1.00 [facility] Basophil percentage 141 mmol/L 136-145 [facility] Basophil percentage 3.6 mmol/L 3.5-5.1 [facility] Basophil percentage 109 mmol/L 98-107 [facility] Basophils (Bld) [#/Vol] 6.2 10*3/uL 4.4-11.0 [facility] Bilirubin [Mass/Vol] 0.30 mg/dL 0.20-1.00 [facility] Comment on above: For patients on eltr ombopag therapy, use of Dimension [place] TBIL is not recommended. Chloride [Moles/Vol] 109 mmol/L 98-107 [facility] Glucose [Mass/Vol] 100 mg/dL 74-106 [facility] Comment on above: Fasting Glucose resu lt from 100 to 125 mg/dL suggests IMPAIRED HOMEOSTASIS per A.D.A. criteria. Potassium [Moles/Vol] 3.6 mmol/L 3.5-5.1 [facility] Protein [Mass/Vol] 6.5 g/dL 6.4-8.2 [facility] Sodium [Moles/Vol] 141 mmol/L 136-145 [facility] WBC (Bld) [#/Vol] 6.2 10*3/uL 4.4-11.0 [facility] Blood erythrocytes count (nu mber/volume)Ordered By: Андрей Cooley on 05-19-2023 RBC (Bld) [#/Vol] 4.24 10*6/uL 4.6-6.2 [facility] Blood hemoglobin measurement (mass/volume)Ordered By: Андрей Cooley on 05-19-2023 Hemoglobin (Bld) [Mass/Vol] 13.8 g/dL 13.0-16.5 [facility] Blood platelet mean volumeOr dered By: Андрей Cooley on 05-19-2023 Platelet mean volume (Bld) [Entitic vol] 9.9 fL 6.2-12.0 [facility] Determination of erythrocyte mean corpuscular volume (MCV)Ordered By: Андрей Cooley on 05-19-2023 MCV (RBC) [Entitic vol] 99.5 fL 80-94 [facility] Hematocrit Auto (Bld) [Volum e fraction]Ordered By: Андрей Cooley on 05-19-2023 Hematocrit (Bld) [Volume fraction] 42.2 % 40-54 [facility] Laboratory - Chemistry and C hemistry - challengeOrdered By: Андрей Cooley on 05-19-2023 ALP [Catalytic activity/Vol] 72 U/L 45-117 [facility] ALT [Catalytic activity/Vol] 33 U/L 16- [facility] CO2 [Moles/Vol] 29.0 mmol/L 21.0-32.0 [facility] Globulin (S) [Mass/Vol] 3.1 g/dL 2.2-4.2 [facility] Urea nitrogen/Creatinine [Mass ratio] 18.6 mg/mg 10-20 [facility] Laboratory - Hematology and Cell countsOrdered By: Андрей Cooley on 05-19-2023 Erythrocyte distribution width (RBC) [Entitic vol] 52.4 fL 35.1-43.9 [facility] Erythrocyte distribution width (RBC) [Ratio] 14.3 % 11.6-14.6 [facility] MCH (RBC) [Entitic mass] 32.5 pg 27.0-32.0 [facility] MCHC Auto (RBC) [Mass/Vol]Or dered By: Андрей Cooley on 05-19-2023 MCHC (RBC) [Mass/Vol] 32.7 g/dL 32-36 [facility] No Panel InformationOrdered By: Андрей Cooley on 05-19-2023 Estimated GFR (MDRD) Amer 78 mL/min >60 [facility] Comment on above: GFR Calc Estimated GFR (MDRD) Non-Af Amer 64 mL/min >60 [facility] Comment on above: Non- GFR Calc 32.5 pg 27.0-32.0 [facility] 14.3 % 11.6-14.6 [facility] 52.4 fl 35.1-43.9 [facility] 64 mL/min >60 [facility] 78 mL/min >60 [facility] 18.6 RATIO 04-07 [facility] 3.1 g/dL 2.2-4.2 [facility] 72 U/L 45-117 [facility] 33 U/L 16- [facility] 29.0 mmol/L 21.0-32.0 [facility] Platelets bldOrdered By: Italia Cooley on 05-19-2023 Platelets (Bld) [#/Vol] 284 10*3/uL 150-450 [facility] Serum or plasma albumin luis urement (mass/volume)Ordered By: Андрей Cooley on 05-19-2023 Albumin [Mass/Vol] 3.4 g/dL 3.2-5.0 [facility] Serum or plasma albumin/glob ulin mass ratioOrdered By: Андрей Cooley on 05-19-2023 Albumin/Globulin [Mass ratio] 1.1 {ratio} 0.9-2.4 [facility] Serum or plasma calcium luis urement (mass/volume)Ordered By: Андрей Cooley on 05-19-2023 Calcium [Mass/Vol] 8.7 mg/dL 8.5-10.1 [facility] Serum or plasma creatinine m easurement (mass/volume)Ordered By: Андрей Cooley on 05-19-2023 Creatinine [Mass/Vol] 1.18 mg/dL 0.70-1.30 [facility] Comment on above: The validity of the calculated GFR & GFRAA in patients over 70 years has not been determined. Clinical correlation is essential. Serum or plasma urea nitroge n measurement (mass/volume)Ordered By: Андрей Cooley on 05-19-2023 Urea nitrogen [Mass/Vol] 22 mg/dL 7-18 [facility] Thin prep Papanicolaou smear with manual screeningOrdered By: Андрей Cooley on 05-19-2023 Thin prep Papanicolaou smear with manual screening 17 U/L 15-37 [facility] Thin prep Papanicolaou smear with manual screening 3 5-15 [facility] Basophil percentageOrdered B y: Андрей Cooley on 04-19-2023 Basophil percentage 92 mg/dL 74-106 [facility] Basophil percentage 6.8 g/dL 6.4-8.2 [facility] Basophil percentage 0.20 mg/dL 0.20-1.00 [facility] Basophil percentage 140 mmol/L 136-145 [facility] Basophil percentage 4.0 mmol/L 3.5-5.1 [facility] Basophil percentage 105 mmol/L 98-107 [facility] Basophils (Bld) [#/Vol] 6.2 10*3/uL 4.4-11.0 [facility] Bilirubin [Mass/Vol] 0.20 mg/dL 0.20-1.00 [facility] Comment on above: For patients on eltr ombopag therapy, use of Dimension [place] TBIL is not recommended. Chloride [Moles/Vol] 105 mmol/L 98-107 [facility] Glucose [Mass/Vol] 92 mg/dL 74-106 [facility] Potassium [Moles/Vol] 4.0 mmol/L 3.5-5.1 [facility] Protein [Mass/Vol] 6.8 g/dL 6.4-8.2 [facility] Sodium [Moles/Vol] 140 mmol/L 136-145 [facility] WBC (Bld) [#/Vol] 6.2 10*3/uL 4.4-11.0 [facility] Blood erythrocytes count (nu mber/volume)Ordered By: Андрей Cooley on 04-19-2023 RBC (Bld) [#/Vol] 4.26 10*6/uL 4.6-6.2 [facility] Blood hemoglobin measurement (mass/volume)Ordered By: Андрей Cooley on 04-19-2023 Hemoglobin (Bld) [Mass/Vol] 13.6 g/dL 13.0-16.5 [facility] Blood platelet mean volumeOr dered By: Андрей Cooley on 04-19-2023 Platelet mean volume (Bld) [Entitic vol] 9.7 fL 6.2-12.0 [facility] Determination of erythrocyte mean corpuscular volume (MCV)Ordered By: Андрей Cooley on 04-19-2023 MCV (RBC) [Entitic vol] 99.5 fL 80-94 [facility] Hematocrit Auto (Bld) [Volum e fraction]Ordered By: Андрей Cooley on 04-19-2023 Hematocrit (Bld) [Volume fraction] 42.4 % 40-54 [facility] Laboratory - Chemistry and C hemistry - challengeOrdered By: Андрей Cooley on 04-19-2023 ALP [Catalytic activity/Vol] 82 U/L 45-117 [facility] ALT [Catalytic activity/Vol] 27 U/L 16-61 [facility] CO2 [Moles/Vol] 29.0 mmol/L 21.0-32.0 [facility] Globulin (S) [Mass/Vol] 3.5 g/dL 2.2-4.2 [facility] Urea nitrogen/Creatinine [Mass ratio] 22.2 mg/mg 10-20 [facility] Laboratory - Hematology and Cell countsOrdered By: Андрей Cooley on 04-19-2023 Erythrocyte distribution width (RBC) [Entitic vol] 51.8 fL 35.1-43.9 [facility] Erythrocyte distribution width (RBC) [Ratio] 14.4 % 11.6-14.6 [facility] MCH (RBC) [Entitic mass] 31.9 pg 27.0-32.0 [facility] MCHC Auto (RBC) [Mass/Vol]Or dered By: Андрей Cooley on 04-19-2023 MCHC (RBC) [Mass/Vol] 32.1 g/dL 32-36 [facility] No Panel InformationOrdered By: Андрей Cooley on 04-19-2023 Estimated GFR (MDRD) Amer 86 mL/min >60 [facility] Comment on above: GFR Calc Estimated GFR (MDRD) Non-Af Amer 71 mL/min >60 [facility] Comment on above: Non- GFR Calc 31.9 pg 27.0-32.0 [facility] 14.4 % 11.6-14.6 [facility] 51.8 fl 35.1-43.9 [facility] 71 mL/min >60 [facility] 86 mL/min >60 [facility] 22.2 RATIO 10-20 [facility] 3.5 g/dL 2.2-4.2 [facility] 82 U/L 45-117 [facility] 27 U/L 16-61 [facility] 29.0 mmol/L 21.0-32.0 [facility] Platelets bldOrdered By: Italia Cooley on 04-19-2023 Platelets (Bld) [#/Vol] 382 10*3/uL 150-450 [facility] Serum or plasma albumin luis urement (mass/volume)Ordered By: Андрей Cooley on 04-19-2023 Albumin [Mass/Vol] 3.3 g/dL 3.2-5.0 [facility] Serum or plasma albumin/glob ulin mass ratioOrdered By: Андрей Cooley on 04-19-2023 Albumin/Globulin [Mass ratio] 0.9 {ratio} 0.9-2.4 [facility] Serum or plasma calcium luis urement (mass/volume)Ordered By: Андрей Cooley on 04-19-2023 Calcium [Mass/Vol] 9.1 mg/dL 8.5-10.1 [facility] Serum or plasma creatinine m easurement (mass/volume)Ordered By: Андрей Cooley on 04-19-2023 Creatinine [Mass/Vol] 1.08 mg/dL 0.70-1.30 [facility] Comment on above: The validity of the calculated GFR & GFRAA in patients over 70 years has not been determined. Clinical correlation is essential. Serum or plasma urea nitroge n measurement (mass/volume)Ordered By: Андрей Cooley on 04-19-2023 Urea nitrogen [Mass/Vol] 24 mg/dL 7-18 [facility] Thin prep Papanicolaou smear with manual screeningOrdered By: Андрей Cooley on 04-19-2023 Thin prep Papanicolaou smear with manual screening 19 U/L 15-37 [facility] Thin prep Papanicolaou smear with manual screening 6 5-15 [facility] Whole blood hemoglobin A1c/t otal hemoglobin ratio (mass fraction)Ordered By: Андрей Cooley on 04-17-2023 HbA1c (Bld) [Mass fraction] 5.2 % 3.8-5.6 [facility] Comment on above: Normal < 5.7 % Predi abetic 5.7 - 6.4 % Diabetic >or= 6.5 % Please note range changes. Basophil percentageOrdered B y: Андрей Cooley on 04-12-2023 Basophil percentage 92 mg/dL 74-106 [facility] Basophil percentage 6.4 g/dL 6.4-8.2 [facility] Basophil percentage 0.10 mg/dL 0.20-1.00 [facility] Basophil percentage 139 mmol/L 136-145 [facility] Basophil percentage 4.1 mmol/L 3.5-5.1 [facility] Basophil percentage 107 mmol/L 98-107 [facility] Basophils (Bld) [#/Vol] 7.8 10*3/uL 4.4-11.0 [facility] Bilirubin [Mass/Vol] 0.10 mg/dL 0.20-1.00 [facility] Comment on above: For patients on eltr ombopag therapy, use of Dimension [place] TBIL is not recommended. Chloride [Moles/Vol] 107 mmol/L 98-107 [facility] Glucose [Mass/Vol] 92 mg/dL 74-106 [facility] Potassium [Moles/Vol] 4.1 mmol/L 3.5-5.1 [facility] Protein [Mass/Vol] 6.4 g/dL 6.4-8.2 [facility] Sodium [Moles/Vol] 139 mmol/L 136-145 [facility] WBC (Bld) [#/Vol] 7.8 10*3/uL 4.4-11.0 [facility] Blood erythrocytes count (nu mber/volume)Ordered By: Андрей Cooley on 04-12-2023 RBC (Bld) [#/Vol] 4.04 10*6/uL 4.6-6.2 [facility] Blood hemoglobin measurement (mass/volume)Ordered By: Андрей Cooley on 04-12-2023 Hemoglobin (Bld) [Mass/Vol] 13.2 g/dL 13.0-16.5 [facility] Blood platelet mean volumeOr dered By: Андрей Cooley on 04-12-2023 Platelet mean volume (Bld) [Entitic vol] 9.7 fL 6.2-12.0 [facility] Determination of erythrocyte mean corpuscular volume (MCV)Ordered By: Андрей Cooley on 04-12-2023 MCV (RBC) [Entitic vol] 97.5 fL 80-94 [facility] Hematocrit Auto (Bld) [Volum e fraction]Ordered By: Андрей Cooley on 04-12-2023 Hematocrit (Bld) [Volume fraction] 39.4 % 40-54 [facility] Laboratory - Chemistry and C hemistry - challengeOrdered By: Андрей Cooley on 04-12-2023 ALP [Catalytic activity/Vol] 88 U/L 45-117 [facility] ALT [Catalytic activity/Vol] 32 U/L 16-61 [facility] CO2 [Moles/Vol] 26.0 mmol/L 21.0-32.0 [facility] [facility] Globulin (S) [Mass/Vol] 3.4 g/dL 2.2-4.2 [facility] Urea nitrogen/Creatinine [Mass ratio] 20.2 mg/mg - [facility] Laboratory - Hematology and Cell countsOrdered By: Андрей Cooley on 04-12-2023 Erythrocyte distribution width (RBC) [Entitic vol] 49.3 fL 35.1-43.9 [facility] Erythrocyte distribution width (RBC) [Ratio] 13.8 % 11.6-14.6 [facility] MCH (RBC) [Entitic mass] 32.7 pg 27.0-32.0 [facility] MCHC Auto (RBC) [Mass/Vol]Or dered By: Андрей Cooley on 04-12-2023 MCHC (RBC) [Mass/Vol] 33.5 g/dL 32-36 [facility] No Panel InformationOrdered By: Андрей Cooley on 04-12-2023 Estimated GFR (MDRD) Amer 77 mL/min >60 [facility] Comment on above: GFR Calc Estimated GFR (MDRD) Non-Af Amer 64 mL/min >60 [facility] Comment on above: Non- GFR Calc 32.7 pg 27.0-32.0 [facility] 13.8 % 11.6-14.6 [facility] 49.3 fl 35.1-43.9 [facility] 64 mL/min >60 [facility] 77 mL/min >60 [facility] 20.2 RATIO 04-07 [facility] 3.4 g/dL 2.2-4.2 [facility] 88 U/L 45-117 [facility] 32 U/L 16-61 [facility] 26.0 mmol/L 21.0-32.0 [facility] Platelets bldOrdered By: Italia Cooley on 04-12-2023 Platelets (Bld) [#/Vol] 385 10*3/uL 150-450 [facility] Serum or plasma albumin luis urement (mass/volume)Ordered By: Андрей Cooley on 04-12-2023 Albumin [Mass/Vol] 3.0 g/dL 3.2-5.0 [facility] Serum or plasma albumin/glob ulin mass ratioOrdered By: Андрей Cooley on 04-12-2023 Albumin/Globulin [Mass ratio] 0.9 {ratio} 0.9-2.4 [facility] Serum or plasma calcium luis urement (mass/volume)Ordered By: Андрей Cooley on 04-12-2023 Calcium [Mass/Vol] 8.7 mg/dL 8.5-10.1 [facility] Serum or plasma creatinine m easurement (mass/volume)Ordered By: Андрей Cooley on 04-12-2023 Creatinine [Mass/Vol] 1.19 mg/dL 0.70-1.30 [facility] Comment on above: The validity of the calculated GFR & GFRAA in patients over 70 years has not been determined. Clinical correlation is essential. Serum or plasma urea nitroge n measurement (mass/volume)Ordered By: Андрей Cooley on 04-12-2023 Urea nitrogen [Mass/Vol] 24 mg/dL 7-18 [facility] Thin prep Papanicolaou smear with manual screeningOrdered By: Андрей Cooley on 04-12-2023 Thin prep Papanicolaou smear with manual screening 21 U/L 15-37 [facility] Thin prep Papanicolaou smear with manual screening 6 5-15 [facility] Basophil percentageOrdered B y: Андрей Cooley on 04-05-2023 Basophil percentage 105 mg/dL 74-106 [facility] Basophil percentage 6.7 g/dL 6.4-8.2 [facility] Basophil percentage 0.20 mg/dL 0.20-1.00 [facility] Basophil percentage 139 mmol/L 136-145 [facility] Basophil percentage 3.9 mmol/L 3.5-5.1 [facility] Basophil percentage 105 mmol/L 98-107 [facility] Basophils (Bld) [#/Vol] 5.8 10*3/uL 4.4-11.0 [facility] Bilirubin [Mass/Vol] 0.20 mg/dL 0.20-1.00 [facility] Comment on above: For patients on eltr ombopag therapy, use of Dimension [place] TBIL is not recommended. Chloride [Moles/Vol] 105 mmol/L 98-107 [facility] Glucose [Mass/Vol] 105 mg/dL 74-106 [facility] Comment on above: Fasting Glucose resu lt from 100 to 125 mg/dL suggests IMPAIRED HOMEOSTASIS per A.D.A. criteria. Potassium [Moles/Vol] 3.9 mmol/L 3.5-5.1 [facility] Protein [Mass/Vol] 6.7 g/dL 6.4-8.2 [facility] Sodium [Moles/Vol] 139 mmol/L 136-145 [facility] WBC (Bld) [#/Vol] 5.8 10*3/uL 4.4-11.0 [facility] Blood erythrocytes count (nu mber/volume)Ordered By: Андрей Cooley on 04-05-2023 RBC (Bld) [#/Vol] 4.40 10*6/uL 4.6-6.2 [facility] Blood hemoglobin measurement (mass/volume)Ordered By: Андрей Cooley on 04-05-2023 Hemoglobin (Bld) [Mass/Vol] 13.9 g/dL 13.0-16.5 [facility] Blood platelet mean volumeOr dered By: Андрей Cooley on 04-05-2023 Platelet mean volume (Bld) [Entitic vol] 9.5 fL 6.2-12.0 [facility] Determination of erythrocyte mean corpuscular volume (MCV)Ordered By: Андрей Cooley on 04-05-2023 MCV (RBC) [Entitic vol] 96.8 fL 80-94 [facility] Hematocrit Auto (Bld) [Volum e fraction]Ordered By: Андрей Cooley on 04-05-2023 Hematocrit (Bld) [Volume fraction] 42.6 % 40-54 [facility] Laboratory - Chemistry and C hemistry - challengeOrdered By: Андрей Cooley on 04-05-2023 ALP [Catalytic activity/Vol] 60 U/L 45-117 [facility] ALT [Catalytic activity/Vol] 54 U/L 16-61 [facility] CO2 [Moles/Vol] 28.0 mmol/L 21.0-32.0 [facility] Globulin (S) [Mass/Vol] 3.8 g/dL 2.2-4.2 [facility] Urea nitrogen/Creatinine [Mass ratio] 22.0 mg/mg 10- [facility] Laboratory - Hematology and Cell countsOrdered By: Андрей Cooley on 04-05-2023 Erythrocyte distribution width (RBC) [Entitic vol] 50.1 fL 35.1-43.9 [facility] Erythrocyte distribution width (RBC) [Ratio] 14.0 % 11.6-14.6 [facility] MCH (RBC) [Entitic mass] 31.6 pg 27.0-32.0 [facility] MCHC Auto (RBC) [Mass/Vol]Or dered By: Андрей Cooley on 04-05-2023 MCHC (RBC) [Mass/Vol] 32.6 g/dL 32-36 [facility] No Panel InformationOrdered By: Андрей Cooley on 04-05-2023 Estimated GFR (MDRD) Amer 85 mL/min >60 [facility] Comment on above: GFR Calc Estimated GFR (MDRD) Non-Af Amer 70 mL/min >60 [facility] Comment on above: Non- GFR Calc 31.6 pg 27.0-32.0 [facility] 14.0 % 11.6-14.6 [facility] 50.1 fl 35.1-43.9 [facility] 70 mL/min >60 [facility] 85 mL/min >60 [facility] 22.0 RATIO 04-07 [facility] 3.8 g/dL 2.2-4.2 [facility] 60 U/L 45-117 [facility] 54 U/L 16-61 [facility] 28.0 mmol/L 21.0-32.0 [facility] Platelets bldOrdered By: Italia Cooley on 04-05-2023 Platelets (Bld) [#/Vol] 399 10*3/uL 150-450 [facility] Serum or plasma albumin luis urement (mass/volume)Ordered By: Андрей Cooley on 04-05-2023 Albumin [Mass/Vol] 2.9 g/dL 3.2-5.0 [facility] Serum or plasma albumin/glob ulin mass ratioOrdered By: Андрей Cooley on 04-05-2023 Albumin/Globulin [Mass ratio] 0.8 {ratio} 0.9-2.4 [facility] Serum or plasma calcium luis urement (mass/volume)Ordered By: Андрей Cooley on 04-05-2023 Calcium [Mass/Vol] 9.3 mg/dL 8.5-10.1 [facility] Serum or plasma creatinine m easurement (mass/volume)Ordered By: Андрей Cooley on 04-05-2023 Creatinine [Mass/Vol] 1.09 mg/dL 0.70-1.30 [facility] Comment on above: The validity of the calculated GFR & GFRAA in patients over 70 years has not been determined. Clinical correlation is essential. Serum or plasma urea nitroge n measurement (mass/volume)Ordered By: Андрей Cooley on 04-05-2023 Urea nitrogen [Mass/Vol] 24 mg/dL 7-18 [facility] Thin prep Papanicolaou smear with manual screeningOrdered By: Андрей Cooley on 04-05-2023 Thin prep Papanicolaou smear with manual screening 38 U/L 15-37 [facility] Thin prep Papanicolaou smear with manual screening 6 5-15 [facility] Absolute lymphocyte countOrd ered By: Frankie Galindo on 04-04-2023 Lymphocytes Auto (Unsp spec) [#/Vol] 1.49 10*3/uL 0.83-4.51 [facility] Basophil percentageOrdered B y: Frankie Galindo on 04-04-2023 Basophil percentage 101 mg/dL 74-106 [facility] Basophil percentage 136 mmol/L 136-145 [facility] Basophil percentage 3.9 mmol/L 3.5-5.1 [facility] Basophil percentage 103 mmol/L 98-107 [facility] Basophils (Bld) [#/Vol] 6.3 10*3/uL 4.4-11.0 [facility] Basophils (Bld) [#/Vol] 4.1 10*3/uL 2.0-7.7 [facility] Basophils/100 WBC (Bld) 1.1 % 0-1 [facility] Basophils/100 WBC (Bld) 64.4 % 47-70 [facility] Basophils/100 WBC (Bld) 3.3 % 0-5 [facility] Chloride [Moles/Vol] 103 mmol/L 98-107 [facility] Eosinophils/100 WBC (Bld) 3.3 % 0-5 [facility] Glucose [Mass/Vol] 101 mg/dL 74-106 [facility] Comment on above: Fasting Glucose resu lt from 100 to 125 mg/dL suggests IMPAIRED HOMEOSTASIS per A.D.A. criteria. Neutrophils (Bld) [#/Vol] 4.1 10*3/uL 2.0-7.7 [facility] Neutrophils/100 WBC (Bld) 64.4 % 47-70 [facility] Potassium [Moles/Vol] 3.9 mmol/L 3.5-5.1 [facility] Sodium [Moles/Vol] 136 mmol/L 136-145 [facility] WBC (Bld) [#/Vol] 6.3 10*3/uL 4.4-11.0 [facility] Blood erythrocytes count (nu mber/volume)Ordered By: Frankie Galindo on 04-04-2023 RBC (Bld) [#/Vol] 4.82 10*6/uL 4.6-6.2 [facility] Blood hemoglobin measurement (mass/volume)Ordered By: Frankie Galindo on 04-04-2023 Hemoglobin (Bld) [Mass/Vol] 15.1 g/dL 13.0-16.5 [facility] Blood lymphocytes/100 leukoc ytesOrdered By: Frankie Galindo on 04-04-2023 Lymphocytes/100 WBC (Bld) 23.6 % 19-41 [facility] Blood monocytes/100 leukocyt esOrdered By: Frankie Galindo on 04-04-2023 Monocytes/100 WBC (Bld) 6.3 % 0-10 [facility] Blood platelet mean volumeOr dered By: Frankie Galindo on 04-04-2023 Platelet mean volume (Bld) [Entitic vol] 9.3 fL 6.2-12.0 [facility] Determination of erythrocyte mean corpuscular volume (MCV)Ordered By: Frankie Galindo on 04-04-2023 MCV (RBC) [Entitic vol] 96.7 fL 80-94 [facility] Hematocrit Auto (Bld) [Volum e fraction]Ordered By: Frankie Galindo on 04-04-2023 Hematocrit (Bld) [Volume fraction] 46.6 % 40-54 [facility] Laboratory - Chemistry and C hemistry - challengeOrdered By: Frankie Galindo on 04-04-2023 CO2 [Moles/Vol] 29.0 mmol/L 21.0-32.0 [facility] Urea nitrogen/Creatinine [Mass ratio] 20.3 mg/mg 10-20 [facility] Laboratory - Hematology and Cell countsOrdered By: Frankie Galindo on 04-04-2023 Erythrocyte distribution width (RBC) [Entitic vol] 48.9 fL 35.1-43.9 [facility] Erythrocyte distribution width (RBC) [Ratio] 13.6 % 11.6-14.6 [facility] Immature granulocytes/100 WBC (Bld) 1.300 % 0.0-0.9 [facility] Comment on above: IG% - Immature Granu locytes (promyelocytes, myelocytes and metamyelocytes) > 1% indicates that a LEFT SHIFT is Present. MCH (RBC) [Entitic mass] 31.3 pg 27.0-32.0 [facility] Nucleated RBC/100 WBC (Bld) [Ratio] 0 % 0-5 [facility] MCHC Auto (RBC) [Mass/Vol]Or dered By: Frankie Galindo on 04-04-2023 MCHC (RBC) [Mass/Vol] 32.4 g/dL 32-36 [facility] No Panel InformationOrdered By: Frankie Galindo on 04-04-2023 Estimated Creatinine Clearance Calc 45.80 ml/min [facility] Estimated GFR (MDRD) Amer 71 mL/min >60 [facility] Comment on above: GFR Calc Estimated GFR (MDRD) Non-Af Amer 58 mL/min >60 [facility] Comment on above: Non- GFR Calc 31.3 pg 27.0-32.0 [facility] 13.6 % 11.6-14.6 [facility] 48.9 fl 35.1-43.9 [facility] 1.300 % 0.0-0.9 [facility] 0 % 0-5 [facility] 58 mL/min >60 [facility] 71 mL/min >60 [facility] 45.80 ml/min [facility] 20.3 RATIO 04-07 [facility] 29.0 mmol/L 21.0-32.0 [facility] Platelets bldOrdered By: Sebastien Galindo on 04-04-2023 Platelets (Bld) [#/Vol] 379 10*3/uL 150-450 [facility] Serum or plasma calcium luis urement (mass/volume)Ordered By: Farnkie Galindo on 04-04-2023 Calcium [Mass/Vol] 9.7 mg/dL 8.5-10.1 [facility] Serum or plasma creatinine m easurement (mass/volume)Ordered By: Frankie Galindo on 04-04-2023 Creatinine [Mass/Vol] 1.28 mg/dL 0.70-1.30 [facility] Comment on above: The validity of the calculated GFR & GFRAA in patients over 70 years has not been determined. Clinical correlation is essential. Serum or plasma urea nitroge n measurement (mass/volume)Ordered By: Frankie Galindo on 04-04-2023 Urea nitrogen [Mass/Vol] 26 mg/dL 01-03 [facility] Thin prep Papanicolaou smear with manual screeningOrdered By: Frankie Galindo on 04-04-2023 Thin prep Papanicolaou smear with manual screening 4 10-31 [facility] Basophil percentageOrdered B y: Frankie Galindo on 04-02-2023 Basophil percentage 2.6 mg/dL 2.5-4.9 [facility] Laboratory - Chemistry and C hemistry - challengeOrdered By: Frankie Galindo on 04-02-2023 Magnesium [Mass/Vol] 2.0 mg/dL 1.6-2.6 [facility] No Panel InformationOrdered By: Frankie Galindo on 04-02-2023 2.0 mg/dL 1.6-2.6 [facility] Basophil percentageOrdered B y: Celia Toribio on 04-01-2023 Basophil percentage 6.5 g/dL 6.4-8.2 [facility] Basophil percentage 0.30 mg/dL 0.20-1.00 [facility] Bilirubin [Mass/Vol] 0.30 mg/dL 0.20-1.00 [facility] Comment on above: For patients on eltr ombopag therapy, use of Dimension [place] TBIL is not recommended. Protein [Mass/Vol] 6.5 g/dL 6.4-8.2 [facility] Laboratory - Chemistry and C hemistry - challengeOrdered By: Celia Toribio on 04-01-2023 ALP [Catalytic activity/Vol] 57 U/L 45-117 [facility] ALT [Catalytic activity/Vol] 21 U/L [facility] Globulin (S) [Mass/Vol] 3.9 g/dL 2.2-4.2 [facility] No Panel InformationOrdered By: Celia Toribio on 04-01-2023 3.9 g/dL 2.2-4.2 [facility] 57 U/L 45- [facility] 21 U/L [facility] Serum or plasma albumin luis urement (mass/volume)Ordered By: Celia Toribio on 04-01-2023 Albumin [Mass/Vol] 2.6 g/dL 3.2-5.0 [facility] Serum or plasma albumin/glob ulin mass ratioOrdered By: Celia Toribio on 04-01-2023 Albumin/Globulin [Mass ratio] 0.7 {ratio} 0.9-2.4 [facility] Thin prep Papanicolaou smear with manual screeningOrdered By: Celia Toribio on 04-01-2023 Thin prep Papanicolaou smear with manual screening 12 U/L 15-37 [facility] Absolute lymphocyte countOrd ered By: Huber Alvarado on 03-30-2023 Lymphocytes Auto (Unsp spec) [#/Vol] 0.93 10*3/uL 0.83-4.51 [facility] Bacteria identified Cx Nom ( U)Ordered By: Huber Alvarado on 03-30-2023 Culture, urine ESBL Escherichia coli [facility] Basophil percentageOrdered B y: Huber Alvarado on 03-30-2023 Basophil percentage 1.4 mmol/L 0.4-2.0 [facility] Lactate [Moles/Vol] 1.4 mmol/L 0.4-2.0 [facility] Basophil percentage 25-50 SEEN /hpf 0-5 [facility] Basophils/100 WBC (Bld) 0.7 % 0-1 [facility] Chloride [Moles/Vol] 99 mmol/L 98-107 [facility] Eosinophils/100 WBC (Bld) 0.0 % 0-5 [facility] Glucose [Mass/Vol] 104 mg/dL 74-106 [facility] Comment on above: Fasting Glucose resu lt from 100 to 125 mg/dL suggests IMPAIRED HOMEOSTASIS per A.D.A. criteria. Neutrophils (Bld) [#/Vol] 7.9 10*3/uL 2.0-7.7 [facility] Neutrophils/100 WBC (Bld) 79.2 % 47-70 [facility] Potassium [Moles/Vol] 4.0 mmol/L 3.5-5.1 [facility] Sodium [Moles/Vol] 134 mmol/L 136-145 [facility] WBC (Bld) [#/Vol] 10.0 10*3/uL 4.4-11.0 [facility] Bilirubin Test strip Ql (U)O rdered By: Huber Alvarado on 03-30-2023 Bilirubin Ql (U) Negative Negative [facility] Blood erythrocytes count (nu mber/volume)Ordered By: Huber Alvarado on 03-30-2023 RBC (Bld) [#/Vol] 4.81 10*6/uL 4.6-6.2 [facility] Blood hemoglobin measurement (mass/volume)Ordered By: Huber Alvarado on 03-30-2023 Hemoglobin (Bld) [Mass/Vol] 15.4 g/dL 13.0-16.5 [facility] Blood lymphocytes/100 leukoc ytesOrdered By: Huber Alvarado on 03-30-2023 Lymphocytes/100 WBC (Bld) 9.3 % 19-41 [facility] Blood monocytes/100 leukocyt esOrdered By: Huber Alvarado on 03-30-2023 Monocytes/100 WBC (Bld) 10.5 % 0-10 [facility] Blood platelet mean volumeOr dered By: Huber Alvarado on 03-30-2023 Platelet mean volume (Bld) [Entitic vol] 9.8 fL 6.2-12.0 [facility] Culture, urineOrdered By: Baldo Chan on 03-30-2023 Bacteria identified Cx Nom (U) ESBL Escherichia coli [facility] Bacteria identified Cx Nom (U) ESBL Escherichia coli [facility] Determination of erythrocyte mean corpuscular volume (MCV)Ordered By: Huber Alvarado on 03-30-2023 MCV (RBC) [Entitic vol] 97.5 fL 80-94 [facility] Hematocrit Auto (Bld) [Volum e fraction]Ordered By: Huber Alvarado on 03-30-2023 Hematocrit (Bld) [Volume fraction] 46.9 % 40-54 [facility] Ketones Test strip Ql (U)Ord ered By: Huber Alvarado on 03-30-2023 Ketones Ql (U) Negative Negative [facility] Laboratory - Chemistry and C hemistry - challengeOrdered By: Huber Alvarado on 03-30-2023 CO2 [Moles/Vol] 31.0 mmol/L 21.0-32.0 [facility] Urea nitrogen/Creatinine [Mass ratio] 16.0 mg/mg 10-20 [facility] Laboratory - Hematology and Cell countsOrdered By: Huber Alvarado on 03-30-2023 Erythrocyte distribution width (RBC) [Entitic vol] 50.3 fL 35.1-43.9 [facility] Erythrocyte distribution width (RBC) [Ratio] 13.9 % 11.6-14.6 [facility] Immature granulocytes/100 WBC (Bld) 0.300 % 0.0-0.9 [facility] Comment on above: IG% - Immature Granu locytes (promyelocytes, myelocytes and metamyelocytes) > 1% indicates that a LEFT SHIFT is Present. MCH (RBC) [Entitic mass] 32.0 pg 27.0-32.0 [facility] Nucleated RBC/100 WBC (Bld) [Ratio] 0 % 0-5 [facility] Laboratory - Microbiology an d Antimicrobial susceptibilityOrdered By: Huber Alvarado on 03-30-2023 Bacteria identified Cx Nom (Bld) No growth in 5 days. [facility] MCHC Auto (RBC) [Mass/Vol]Or dered By: Huber Alvarado on 03-30-2023 MCHC (RBC) [Mass/Vol] 32.8 g/dL 32-36 [facility] Mucus LM Ql (Urine sed)Order ed By: Huber Alvarado on 10-12-2023 Mucus Ql (Urine sed) 0 SEEN /hpf [facility] Nitrite Test strip Ql (U)Ord ered By: Huber Alvarado on 03-30-2023 Nitrite Ql (U) Negative Negative [facility] No Panel InformationOrdered By: Huber Alvarado on 03-30-2023 No growth in 5 days. [facility] Estimated GFR (MDRD) Amer 77 mL/min >60 [facility] Comment on above: GFR Calc Estimated GFR (MDRD) Non-Af Amer 64 mL/min >60 [facility] Comment on above: Non- GFR Calc Platelets bldOrdered By: Pet er Christiano on 03-30-2023 Platelets (Bld) [#/Vol] 276 10*3/uL 150-450 [facility] Protein Test strip Ql (U)Ord ered By: Huber Alvarado on 03-30-2023 Protein Ql (U) 100 mg/dl Negative [facility] Serum or plasma calcium luis urement (mass/volume)Ordered By: Huber Alvarado on 03-30-2023 Calcium [Mass/Vol] 9.8 mg/dL 8.5-10.1 [facility] Serum or plasma creatinine m easurement (mass/volume)Ordered By: Huber Alvarado on 03-30-2023 Creatinine [Mass/Vol] 1.19 mg/dL 0.70-1.30 [facility] Comment on above: The validity of the calculated GFR & GFRAA in patients over 70 years has not been determined. Clinical correlation is essential. Serum or plasma urea nitroge n measurement (mass/volume)Ordered By: Huber Alvarado on 03-30-2023 Urea nitrogen [Mass/Vol] 19 mg/dL 7-18 [facility] Squamous epithelial cells de tection in urine sediment by light microscopyOrdered By: Huber Alvarado on 03-30-2023 Epithelial cells.squamous LM Ql (Urine sed) 0-5 SEEN /hpf 0-5 [facility] Thin prep Papanicolaou smear with manual screeningOrdered By: Huber Alvarado on 03-30-2023 Thin prep Papanicolaou smear with manual screening 4 5-15 [facility] Urine blood detectionOrdered By: Huber Alvarado on 03-30-2023 RBC Ql (U) 50 /ul Negative [facility] RBC Ql (U) 0 SEEN /hpf 0-5 [facility] Urine clarityOrdered By: Beck Alvarado on 03-30-2023 Clarity (U) Sl. Cloudy Clear [facility] Urine color determinationOrd ered By: Huber Alvarado on 03-30-2023 Color (U) Yellow Yellow [facility] Urine glucose detectionOrder ed By: Huber Alvarado on 03-30-2023 Glucose Ql (U) Normal mg/dl Normal [facility] Urine leukocyte esterase det ection by dipstickOrdered By: Huber Alvarado on 03-30-2023 Leukocyte esterase Test strip Ql (U) 500 /ul Negative [facility] Urine pHOrdered By: Huber billingsley on 03-30-2023 pH (U) 6.0 [pH] 5.0 - 8.0 [facility] Urine sediment bacteria coun t by microscopy (number/high power field)Ordered By: Huber Alvarado on 03-30-2023 Bacteria LM.HPF (Urine sed) [#/Area] 3 /[HPF] None Seen [facility] Urine specific gravity measu rementOrdered By: Huber Alvarado on 03-30-2023 Specific gravity (U) [Rel density] 1.020 1.002-1.030 [facility] Urobilinogen Auto test strip Ql (U)Ordered By: Huber Alvarado on 03-30-2023 Urobilinogen Ql (U) Normal mg/dl Normal [facility] INR in Blood by Coagulation assayOrdered By: Jaden Jauregui on 02-18-2023 INR Coag (Bld) [Relative time] 0.9 {INR} [facility] Laboratory - CoagulationOrde red By: Jaden Jauregui on 02-18-2023 PT Coag (PPP) [Time] 12.4 s 11.7-14.[address] [facility] [address] ABD/PELVIS W/ IV CONTRAST ONLYon 10-23-2022 [...] 10/22/2022 10:33:36 PM Ordering Provider: PRIYANKA [facility]ts [facility] ([place] .Auto Diffon 10-22-2022 Basophil, Absolute 0.1 10 3/mcL Normal 0.0-0.2 [facility] ([place]) Comment on above: Performed By: #### A DIFF, LIP, MDW, CMP, GFR, ANEU, CBC #### [address] [address] Basophils/100 WBC (Bld) 0.8 % Normal 0.0-2.5 [facility] ([place] Comment on above: Performed By: #### A DIFF, LIP, MDW, CMP, GFR, ANEU, CBC #### [address] [address] Eosinophil, Absolute 0.0 10 3/mcL Normal 0.0-0.4 [facility] ([place]) Comment on above: Performed By: #### A DIFF, LIP, MDW, CMP, GFR, ANEU, CBC #### [address] [address] Eosinophils/100 WBC (Bld) 0.3 % Normal 0.0-7.0 [facility] ([place]) Comment on above: Performed By: #### A DIFF, LIP, MDW, CMP, GFR, ANEU, CBC #### [address] [address] Lymphocyte, Absolute 0.9 10 3/mcL Normal 0.8-3.9 [facility] ([place]) Comment on above: Performed By: #### A DIFF, LIP, MDW, CMP, GFR, ANEU, CBC #### [address] [address] Lymphocytes/100 WBC (Bld) 8.1 % Low 10.0-50.0 [facility] ([place]) Comment on above: Performed By: #### A DIFF, LIP, MDW, CMP, GFR, ANEU, CBC #### [address] [address] Monocyte, Absolute 0.7 10 3/mcL Normal 0.2-1.0 [facility] ([place]) Comment on above: Performed By: #### A DIFF, LIP, MDW, CMP, GFR, ANEU, CBC #### [address] [address] Monocytes/100 WBC (Bld) 6.8 % Normal 1.7-13.0 [facility] ([place]) Comment on above: Performed By: #### A DIFF, LIP, MDW, CMP, GFR, ANEU, CBC #### [address] [address] Neutrophils/100 WBC (Bld) 84.0 % High 37.0-80.0 [facility] ([place]) Comment on above: Performed By: #### A DIFF, LIP, MDW, CMP, GFR, ANEU, CBC #### [address] [address] .GFRon 10-22-2022 GFR Non- 58 ml/min/1.73sqm Normal [facility] ([place]) Comment on above: Result Comment: GFR Population [...] LIP, MDW, CMP, GFR, ANEU, CBC #### [address] [address] GFR 71 ml/min/1.73sqm Normal [facility] ([place]) Comment on above: Result Comment: GFR Population [...] LIP, MDW, CMP, GFR, ANEU, CBC #### [place] [address] .MDWon 10-22-2022 Monocyte Distribution Width 24.33 High 0.00-20.00 [facility] ([place]) Comment on above: Result Comment: For adults in ED, MDW>20.0 may be associated with a higher risk of sepsis during the first 12hrs of hospital admission Performed By: #### A DIFF, LIP, MDW, CMP, GFR, ANEU, CBC #### [place] [address] .NEUABSon 10-22-2022 Neutrophil, Absolute 8.9 10 3/mcL High 2.9-6.2 [facility] ([place] Comment on above: Performed By: #### A DIFF, LIP, MDW, CMP, GFR, ANEU, CBC #### [place] [address] CBCon 10-22-2022 Erythrocyte distribution width (RBC) [Ratio] 14.0 % Normal 11.5-14.5 [facility] ([place] Comment on above: Performed By: #### A DIFF, LIP, MDW, CMP, GFR, ANEU, CBC #### [place] [address] Hematocrit (Bld) [Volume fraction] 38.9 % Low 42.0-52.0 [facility] ([place] Comment on above: Performed By: #### A DIFF, LIP, MDW, CMP, GFR, ANEU, CBC #### [place] [address] Hgb 13.5 G/dL Low 14.0-18.0 [facility] ([place] Comment on above: Performed By: #### A DIFF, LIP, MDW, CMP, GFR, ANEU, CBC #### [address] [address] MCH (RBC) [Entitic mass] 33.0 pg High 27.0-31.2 [facility] ([place] Comment on above: Performed By: #### A DIFF, LIP, MDW, CMP, GFR, ANEU, CBC #### [place] [address] MCHC 34.8 G/dL Normal 31.8-35.4 [facility] ([place] Comment on above: Performed By: #### A DIFF, LIP, MDW, CMP, GFR, ANEU, CBC #### [address] [address] MCV (RBC) [Entitic vol] 95.0 fL High 80.0-94.0 [facility] ([place] Comment on above: Performed By: #### A DIFF, LIP, MDW, CMP, GFR, ANEU, CBC #### [address] [address] Platelet 344 10 3/mcL Normal 130-400 [facility] ([place]) Comment on above: Performed By: #### A DIFF, LIP, MDW, CMP, GFR, ANEU, CBC #### [address] [address] Platelet mean volume (Bld) [Entitic vol] 7.1 fL Low 7.4-10.4 [facility] ([place] Comment on above: Performed By: #### A DIFF, LIP, MDW, CMP, GFR, ANEU, CBC #### [address] [address] RBC 4.10 10 6/mcL Normal 4.04-6.13 [facility] ([place] Comment on above: Performed By: #### A DIFF, LIP, MDW, CMP, GFR, ANEU, CBC #### [address] [address] WBC 10.6 10 3/mcL Normal 4.6-10.8 [facility] ([place]) Comment on above: Performed By: #### A DIFF, LIP, MDW, CMP, GFR, ANEU, CBC #### [address] [address] CMPon 10-22-2022 Albumin Level 2.9 G/dL Low 3.4-4.8 [facility] ([place]) Comment on above: Performed By: #### A DIFF, LIP, MDW, CMP, GFR, ANEU, CBC #### [address] [address] Albumin/Globulin [Mass ratio] 0.8 {ratio} Low 1.1-2.5 [facility] ([place]) Comment on above: Performed By: #### A DIFF, LIP, MDW, CMP, GFR, ANEU, CBC #### [address] [address] ALP [Catalytic activity/Vol] 98 U/L Normal 40-135 [facility] ([place] Comment on above: Performed By: #### A DIFF, LIP, MDW, CMP, GFR, ANEU, CBC #### [address] [address] ALT [Catalytic activity/Vol] 46 U/L Normal 16-63 [facility] ([place] Comment on above: Performed By: #### A DIFF, LIP, MDW, CMP, GFR, ANEU, CBC #### [address] [address] AST [Catalytic activity/Vol] 29 U/L Normal 10-40 [facility] ([place] Comment on above: Performed By: #### A DIFF, LIP, MDW, CMP, GFR, ANEU, CBC #### [address] [address] Bili Total 0.3 mg/dL Normal 0.2-1.0 [facility] ([place]) Comment on above: Result Comment: Use of this assay is not recommended for patients undergoing treatment with eltrombopag due to the potential for falsely elevated results. Performed By: #### A DIFF, LIP, MDW, CMP, GFR, ANEU, CBC #### [address] [address] BUN/Creatinine Ratio 17 ratio Normal 7-27 [facility] ([place]) Comment on above: Performed By: #### A DIFF, LIP, MDW, CMP, GFR, ANEU, CBC #### [address] [address] Calcium [Mass/Vol] 9.2 mg/dL Normal 8.4-10.2 [facility] ([place]) Comment on above: Performed By: #### A DIFF, LIP, MDW, CMP, GFR, ANEU, CBC #### [address] [address] Chloride [Moles/Vol] 96 mmol/L Low 98-107 [facility] ([place] Comment on above: Performed By: #### A DIFF, LIP, MDW, CMP, GFR, ANEU, CBC #### [address] [address] CO2 [Moles/Vol] 33 mmol/L High 23-31 [facility] ([place] Comment on above: Performed By: #### A DIFF, LIP, MDW, CMP, GFR, ANEU, CBC #### [address] [address] Creatinine [Mass/Vol] 1.22 mg/dL Normal 0.70-1.30 [facility] ([place]) Comment on above: Performed By: #### A DIFF, LIP, MDW, CMP, GFR, ANEU, CBC #### [address] [address] Electrolyte Balance 5.0 mEq/L Normal 4.0-15.0 [facility] ([place]) Comment on above: Performed By: #### A DIFF, LIP, MDW, CMP, GFR, ANEU, CBC #### [address] [address] Globulin 3.5 G/dL Normal [facility] ([place]) Comment on above: Performed By: #### A DIFF, LIP, MDW, CMP, GFR, ANEU, CBC #### [address] [address] Glucose [Mass/Vol] 111 mg/dL High 83-110 [facility] ([place]) Comment on above: Performed By: #### A DIFF, LIP, MDW, CMP, GFR, ANEU, CBC #### [address] [address] Potassium [Moles/Vol] 4.3 mmol/L Normal 3.5-5.1 [facility] ([place]) Comment on above: Performed By: #### A DIFF, LIP, MDW, CMP, GFR, ANEU, CBC #### [address] [address] Sodium [Moles/Vol] 134 mmol/L Low 136-145 [facility] ([place]) Comment on above: Performed By: #### A DIFF, LIP, MDW, CMP, GFR, ANEU, CBC #### [address] [address] Total Protein 6.4 G/dL Normal 6.4-8.2 [facility] ([place]) Comment on above: Performed By: #### A DIFF, LIP, MDW, CMP, GFR, ANEU, CBC #### [address] [address] Urea nitrogen [Mass/Vol] 21 mg/dL High 7-18 [facility] ([place]) Comment on above: Performed By: #### A DIFF, LIP, MDW, CMP, GFR, ANEU, CBC #### [address] [address] LABORATORYOrdered By: SYSTEM SYSTEM on 10-22-2022 Albumin [...] 10-22-2022 Lipase Level 32 U/L Normal 16-77 [facility] ([place]) Comment on above: Performed By: #### A DIFF, LIP, MDW, CMP, GFR, ANEU, CBC #### [place] [address] [place], [place] [address] Absolute lymphocyte countOrd ered By: Dr. Jauregui on 10-21-2022 Lymphocytes Auto (Unsp spec) [#/Vol] 0.85 10*3/uL 0.83-4.51 [facility] Basophil percentageOrdered B y: Dr. Jauregui on 10-21-2022 Basophil percentage 25-50 SEEN /hpf 0-5 [facility] Basophils/100 WBC (Bld) 0.6 % 0-1 [facility] Bilirubin [Mass/Vol] 0.30 mg/dL 0.20-1.00 [facility] Comment on above: For patients on eltr ombopag therapy, use of Dimension [place] TBIL is not recommended. Chloride [Moles/Vol] 99 mmol/L 98-107 [facility] Eosinophils/100 WBC (Bld) 0.4 % 0-5 [facility] Glucose [Mass/Vol] 104 mg/dL 74-106 [facility] Comment on above: Fasting Glucose resu lt from 100 to 125 mg/dL suggests IMPAIRED HOMEOSTASIS per A.D.A. criteria. Neutrophils (Bld) [#/Vol] 8.8 10*3/uL 2.0-7.7 [facility] Neutrophils/100 WBC (Bld) 84.2 % 47-70 [facility] Potassium [Moles/Vol] 3.6 mmol/L 3.5-5.1 [facility] Protein [Mass/Vol] 7.2 g/dL 6.4-8.2 [facility] Sodium [Moles/Vol] 135 mmol/L 136-145 [facility] WBC (Bld) [#/Vol] 10.4 10*3/uL 4.4-11.0 [facility] Bilirubin Test strip Ql (U)O rdered By: Dr. Jauregui on 10-21-2022 Bilirubin Ql (U) Negative Negative [facility] Blood erythrocytes count (nu mber/volume)Ordered By: Dr. Jauregui on 10-21-2022 RBC (Bld) [#/Vol] 4.51 10*6/uL 4.6-6.2 [facility] Blood hemoglobin measurement (mass/volume)Ordered By: Dr. Jauregui on 10-21-2022 Hemoglobin (Bld) [Mass/Vol] 14.4 g/dL 13.0-16.5 [facility] Blood lymphocytes/100 leukoc ytesOrdered By: Dr. Jauregui on 10-21-2022 Lymphocytes/100 WBC (Bld) 8.2 % 19-41 [facility] Blood monocytes/100 leukocyt esOrdered By: Dr. Jauregui on 10-21-2022 Monocytes/100 WBC (Bld) 5.4 % 0-10 [facility] Blood platelet mean volumeOr dered By: Dr. Jauregui on 10-21-2022 Platelet mean volume (Bld) [Entitic vol] 8.9 fL 6.2-12.0 [facility] Culture, urineOrdered By: Joseph Jauregui on 10-21-2022 Bacteria identified Cx Nom (U) Presumptive E. coli [facility] Determination of erythrocyte mean corpuscular volume (MCV)Ordered By: Dr. Jauregui on 10-21-2022 MCV (RBC) [Entitic vol] 95.6 fL 80-94 [facility] Hematocrit Auto (Bld) [Volum e fraction]Ordered By: Dr. Jauregui on 10-21-2022 Hematocrit (Bld) [Volume fraction] 43.1 % 40-54 [facility] Ketones Test strip Ql (U)Ord ered By: Dr. Jauregui on 10-21-2022 Ketones Ql (U) Negative Negative [facility] Laboratory - Chemistry and C hemistry - challengeOrdered By: Dr. Jauregui on 10-21-2022 ALP [Catalytic activity/Vol] 84 U/L 45-117 [facility] ALT [Catalytic activity/Vol] 41 U/L 16-61 [facility] CO2 [Moles/Vol] 28.0 mmol/L 21.0-32.0 [facility] Globulin (S) [Mass/Vol] 4.2 g/dL 2.2-4.2 [facility] Lipase [Catalytic activity/Vol] 42 U/L 13-75 [facility] Comment on above: Please note:LIPASE r evised reference range effective 22. New Lipase methodology. Expected to produce lower values than the previous assay method. NEW Reference Range: 13 - 75 U/L Urea nitrogen/Creatinine [Mass ratio] 16.3 mg/mg 10-20 [facility] Laboratory - Hematology and Cell countsOrdered By: Dr. Jauregui on 10-21-2022 Erythrocyte distribution width (RBC) [Entitic vol] 45.7 fL 35.1-43.9 [facility] Erythrocyte distribution width (RBC) [Ratio] 13.0 % 11.6-14.6 [facility] Immature granulocytes/100 WBC (Bld) 1.200 % 0.0-0.9 [facility] Comment on above: IG% - Immature Granu locytes (promyelocytes, myelocytes and metamyelocytes) > 1% indicates that a LEFT SHIFT is Present. MCH (RBC) [Entitic mass] 31.9 pg 27.0-32.0 [facility] Nucleated RBC/100 WBC (Bld) [Ratio] 0 % 0-5 [facility] MCHC Auto (RBC) [Mass/Vol]Or dered By: Dr. Jauregui on 10-21-2022 MCHC (RBC) [Mass/Vol] 33.4 g/dL 32-36 [facility] Mucus LM Ql (Urine sed)Order ed By: Dr. Jauregui on 10-21-2022 Mucus Ql (Urine sed) 0 SEEN /hpf [facility] Nitrite Test strip Ql (U)Ord ered By: Dr. Jauregui on 10-21-2022 Nitrite Ql (U) Negative Negative [facility] No Panel InformationOrdered By: Dr. Jauregui on 10-21-2022 Estimated GFR (MDRD) Amer 90 mL/min >60 [facility] Comment on above: GFR Calc Estimated GFR (MDRD) Non-Af Amer 74 mL/min >60 [facility] Comment on above: Non- GFR Calc Platelets bldOrdered By: Dr. Jauregui on 10-21-2022 Platelets (Bld) [#/Vol] 339 10*3/uL 150-450 [facility] Protein Test strip Ql (U)Ord ered By: Dr. Jauregui on 10-21-2022 Protein Ql (U) 100 mg/dl Negative [facility] Serum or plasma albumin luis urement (mass/volume)Ordered By: Dr. Jauregui on 10-21-2022 Albumin [Mass/Vol] 3.0 g/dL 3.2-5.0 [facility] Serum or plasma albumin/glob ulin mass ratioOrdered By: Dr. Jauregui on 10-21-2022 Albumin/Globulin [Mass ratio] 0.7 {ratio} 0.9-2.4 [facility] Serum or plasma calcium luis urement (mass/volume)Ordered By: Dr. Jauregui on 10-21-2022 Calcium [Mass/Vol] 9.8 mg/dL 8.5-10.1 [facility] Serum or plasma creatinine m easurement (mass/volume)Ordered By: Dr. Jauregui on 10-21-2022 Creatinine [Mass/Vol] 1.04 mg/dL 0.70-1.30 [facility] Comment on above: The validity of the calculated GFR & GFRAA in patients over 70 years has not been determined. Clinical correlation is essential. Serum or plasma urea nitroge n measurement (mass/volume)Ordered By: Dr. Jauregui on 10-21-2022 Urea nitrogen [Mass/Vol] 17 mg/dL 7-18 [facility] Squamous epithelial cells de tection in urine sediment by light microscopyOrdered By: Dr. Jauregui on 10-21-2022 Epithelial cells.squamous LM Ql (Urine sed) 0-5 SEEN /hpf 0-5 [facility] Thin prep Papanicolaou smear with manual screeningOrdered By: Dr. Jauregui on 10-21-2022 Thin prep Papanicolaou smear with manual screening 20 U/L 15-37 [facility] Thin prep Papanicolaou smear with manual screening 8 5-15 [facility] Urine blood detectionOrdered By: Dr. Jauregui on 10-21-2022 RBC Ql (U) 50 /ul Negative [facility] RBC Ql (U) 0 SEEN /hpf 0-5 [facility] Urine clarityOrdered By: Dr. Jauregui on 10-21-2022 Clarity (U) Sl. Cloudy Clear [facility] Urine color determinationOrd ered By: Dr. Jauregui on 10-21-2022 Color (U) Yellow Yellow [facility] Urine glucose detectionOrder ed By: Dr. Jauregui on 10-21-2022 Glucose Ql (U) Normal mg/dl Normal [facility] Urine leukocyte esterase det ection by dipstickOrdered By: Dr. Jauregui on 10-21-2022 Leukocyte esterase Test strip Ql (U) 500 /ul Negative [facility] Urine pHOrdered By: Dr. Babs mckeon on 10-21-2022 pH (U) 6.0 [pH] 5.0 - 8.0 [facility] Urine sediment bacteria coun t by microscopy (number/high power field)Ordered By: Dr. Jauregui on 10-21-2022 Bacteria LM.HPF (Urine sed) [#/Area] 2 /[HPF] None Seen [facility] Urine specific gravity measu rementOrdered By: Dr. Jauregui on 10-21-2022 Specific gravity (U) [Rel density] 1.010 1.002-1.030 [facility] Urobilinogen Auto test strip Ql (U)Ordered By: Dr. Jauregui on 10-21-2022 Urobilinogen Ql (U) Normal mg/dl Normal [facility] No Panel InformationOrdered By: Андрей Cooley on 08-11-2022 Miscellaneous Test See comment [facility] Comment on above: TEST RESULT LIMITSCa rbamazepine(Tegretol), S 7.1 ug/mL 4.0-12.0 In conjunction with other antiepileptic drugs Therapeutic 4.0 - 8.0 Toxicity 9.0 - 12.0 Carbamazepine alone Therapeutic 8.0 - 12.0 Detection Limit = 2.0 <2.0 indicated None Detected Verified by repeat analysis TESTING PERFORMED AT [facility]. ORIGINAL REPORT ON FILE IN LAB CONTAINS ADDITIONAL TEST SITE INFORMATION. No Panel InformationOrdered By: Андрей Cooley on 07-12-2022 Miscellaneous Test See comment [facility] Comment on above: TEST RESULT LIMITSCarbamazepine(Tegretol),SCarbamazepine(Tegretol), S 6.3 ug/mL 4.0-12.0 In conjunction with other antiepileptic drugs Therapeutic 4.0 - 8.0 Toxicity 9.0 - 12.0 Carbamazepine alone Therapeutic 8.0 - 12.0 Detection Limit = 2.0 <2.0 indicated None Detected ____ TESTING PERFORMED AT [facility]. ORIGINAL REPORT ON FILE IN LAB CONTAINS ADDITIONAL TEST SITE INFORMATION. Basophil percentageOrdered B y: Андрей Cooley on 06-14-2022 Bilirubin [Mass/Vol] 0.20 mg/dL 0.20-1.00 [facility] Comment on above: For patients on eltr ombopag therapy, use of Dimension [place] TBIL is not recommended. Chloride [Moles/Vol] 104 mmol/L 98-107 [facility] Cholesterol [Mass/Vol] 139 mg/dL <200 [facility] Comment on above: <200 mg/dL Desirable 200-240 mg/dL Borderline >240 mg/dL High Risk Glucose [Mass/Vol] 76 mg/dL 74-106 [facility] Potassium [Moles/Vol] 3.9 mmol/L 3.5-5.1 [facility] Protein [Mass/Vol] 6.4 g/dL 6.4-8.2 [facility] Sodium [Moles/Vol] 139 mmol/L 136-145 [facility] Triglyceride [Mass/Vol] 111 mg/dL <199 [facility] Comment on above: The drugs N-Acetylcy steine and Metamizole may falsely depress this assay.Serum Triglycerides Reference Interval Normal <150 mg/dL Borderline high 150 - 199 mg/dL High 200 - 499 mg/dL Very High > or = 500 mg/dL WBC (Bld) [#/Vol] 5.5 10*3/uL 4.4-11.0 [facility] Blood erythrocytes count (nu mber/volume)Ordered By: Андрей Cooley on 06-14-2022 RBC (Bld) [#/Vol] 4.57 10*6/uL 4.6-6.2 [facility] Blood hemoglobin measurement (mass/volume)Ordered By: Андрей Cooley on 06-14-2022 Hemoglobin (Bld) [Mass/Vol] 15.0 g/dL 13.0-16.5 [facility] Blood platelet mean volumeOr dered By: Андрей Cooley on 06-14-2022 Platelet mean volume (Bld) [Entitic vol] 10.0 fL 6.2-12.0 [facility] Determination of erythrocyte mean corpuscular volume (MCV)Ordered By: Андрей Cooley on 06-14-2022 MCV (RBC) [Entitic vol] 100.4 fL 80-94 [facility] Hematocrit Auto (Bld) [Volum e fraction]Ordered By: Андрей Cooley on 06-14-2022 Hematocrit (Bld) [Volume fraction] 45.9 % 40-54 [facility] Laboratory - Chemistry and C hemistry - challengeOrdered By: Андрей Cooley on 06-14-2022 ALP [Catalytic activity/Vol] 68 U/L 45-117 [facility] ALT [Catalytic activity/Vol] 31 U/L 16-61 [facility] CO2 [Moles/Vol] 31.0 mmol/L 21.0-32.0 [facility] Globulin (S) [Mass/Vol] 3.0 g/dL 2.2-4.2 [facility] Urea nitrogen/Creatinine [Mass ratio] 22.5 mg/mg 10-20 [facility] Laboratory - Hematology and Cell countsOrdered By: Андрей Cooley on 06-14-2022 Erythrocyte distribution width (RBC) [Entitic vol] 51.8 fL 35.1-43.9 [facility] Erythrocyte distribution width (RBC) [Ratio] 14.2 % 11.6-14.6 [facility] MCH (RBC) [Entitic mass] 32.8 pg 27.0-32.0 [facility] MCHC Auto (RBC) [Mass/Vol]Or dered By: Андрей Cooley on 06-14-2022 MCHC (RBC) [Mass/Vol] 32.7 g/dL 32-36 [facility] No Panel InformationOrdered By: Андрей Cooley on 06-14-2022 Estimated GFR (MDRD) Amer 108 mL/min >60 [facility] Comment on above: GFR Calc Estimated GFR (MDRD) Non-Af Amer 89 mL/min >60 [facility] Comment on above: Non- GFR Calc Vitamin D 25-Hydroxy 40.8 ng/mL [facility] Comment on above: Vitamin D 25(OH) Sta tus Range Deficiency <20 ng/mL (50nmol/L) Insufficiency 20 - 30 ng/mL (50 - 75 nmol/L) Sufficiency 30 - 100 ng/mL (75 - 250 nmol/L) Toxicity >100 ng/mL (>250 nmol/L) Platelets bldOrdered By: Italia Cooley on 06-14-2022 Platelets (Bld) [#/Vol] 239 10*3/uL 150-450 [facility] Serum or plasma albumin luis urement (mass/volume)Ordered By: Андрей Cooley on 06-14-2022 Albumin [Mass/Vol] 3.4 g/dL 3.2-5.0 [facility] Serum or plasma albumin/glob ulin mass ratioOrdered By: Андрей Cooley on 06-14-2022 Albumin/Globulin [Mass ratio] 1.1 {ratio} 0.9-2.4 [facility] Serum or plasma calcium luis urement (mass/volume)Ordered By: Андрей Cooley on 06-14-2022 Calcium [Mass/Vol] 9.1 mg/dL 8.5-10.1 [facility] Serum or plasma cholesterol in HDL measurement (mass/volume)Ordered By: Андрей Cooley on 06-14-2022 Cholesterol in HDL [Mass/Vol] 65 mg/dL >40 [facility] Comment on above: The drugs N-Acetylcy steine and Metamizole may falsely depress this assay. Reference Range HDL <40 mg/dL Low HDL Cholesterol HDL >or= 60 mg/dL High HDL Cholesterol Serum or plasma cholesterol in VLDL measurement (mass/volume)Ordered By: Андрей Cooley on 06-14-2022 Cholesterol in VLDL [Mass/Vol] 22 mg/dL 5-40 [facility] Serum or plasma creatinine m easurement (mass/volume)Ordered By: Андрей Cooley on 06-14-2022 Creatinine [Mass/Vol] 0.89 mg/dL 0.70-1.30 [facility] Comment on above: The validity of the calculated GFR & GFRAA in patients over 70 years has not been determined. Clinical correlation is essential. Serum or plasma low density lipoprotein (LDL) cholesterol measurement (mass/volume)Ordered By: Андрей Cooley on 06-14-2022 Cholesterol in LDL [Mass/Vol] 52 mg/dL 0-130 [facility] Serum or plasma urea nitroge n measurement (mass/volume)Ordered By: Андрей Cooley on 06-14-2022 Urea nitrogen [Mass/Vol] 20 mg/dL 7-18 [facility] Thin prep Papanicolaou smear with manual screeningOrdered By: Андрей Cooley on 06-14-2022 Thin prep Papanicolaou smear with manual screening 13 U/L 15-37 [facility] Thin prep Papanicolaou smear with manual screening 4 5-15 [facility] No Panel InformationOrdered By: Андрей Cooley on 05-13-2022 Miscellaneous Test See comment [facility] Comment on above: TEST RESULT LIMITSCa rbamazepine(Tegretol), S 6.2 ug/mL 4.0-12.0 In conjunction with other antiepileptic drugs Therapeutic 4.0 - 8.0 Toxicity 9.0 - 12.0 Carbamazepine alone Therapeutic 8.0 - 12.0 Detection Limit = 2.0 <2.0 indicated None Detected ____ TESTING PERFORMED AT [facility]. ORIGINAL REPORT ON FILE IN LAB CONTAINS ADDITIONAL TEST SITE INFORMATION. Absolute lymphocyte counton 03-15-2022 Lymphocytes Auto (Unsp spec) [#/Vol] 1.09 10*3/uL 0.83-4.51 [facility] Work Phone: Basophil percentageon 2021 Basophils/100 WBC (Bld) 0.7 % 0-1 [facility] Work Phone: Bilirubin [Mass/Vol] 0.30 mg/dL 0.20-1.00 [facility] Work Phone: Comment on above: For patients on eltr ombopag therapy, use of Dimension [place] TBIL is not recommended. Chloride [Moles/Vol] 96 mmol/L 98-107 [facility] Work Phone: Cholesterol [Mass/Vol] 137 mg/dL <200 [facility] Work Phone: Comment on above: <200 mg/dL Desirable 200-240 mg/dL Borderline >240 mg/dL High Risk Eosinophils/100 WBC (Bld) 1.0 % 0-5 [facility] Work Phone: Glucose [Mass/Vol] 84 mg/dL 74-106 [facility] Work Phone: Neutrophils (Bld) [#/Vol] 5.3 10*3/uL 2.0-7.7 [facility] Work Phone: Neutrophils/100 WBC (Bld) 74.4 % 47-70 [facility] Work Phone: [phone] Potassium [Moles/Vol] 3.5 mmol/L 3.5-5.1 [facility] Work Phone: [phone] Comment on above: Slight Hemolysis, Re sult may be falsely increased. Protein [Mass/Vol] 7.2 g/dL 6.4-8.2 [facility] Work Phone: [phone] Sodium [Moles/Vol] 133 mmol/L 136-145 [facility] Work Phone: [phone] Triglyceride [Mass/Vol] 121 mg/dL <199 [facility] Work Phone: [phone] Comment on above: The drugs N-Acetylcy steine and Metamizole may falsely depress this assay.Serum Triglycerides Reference Interval Normal <150 mg/dL Borderline high 150 - 199 mg/dL High 200 - 499 mg/dL Very High > or = 500 mg/dL WBC (Bld) [#/Vol] 7.2 10*3/uL 4.4-11.0 [facility] Work Phone: Blood erythrocytes count (nu mber/volume)on 03-15-2022 RBC (Bld) [#/Vol] 5.31 10*6/uL 4.6-6.2 [facility] Work Phone: [phone] Blood hemoglobin measurement (mass/volume)on 03-15-2022 Hemoglobin (Bld) [Mass/Vol] 17.0 g/dL 13.0-16.5 [facility] Work Phone: Blood lymphocytes/100 leukoc yteson 03-15-2022 Lymphocytes/100 WBC (Bld) 15.2 % 19-41 [facility] Work Phone: Blood monocytes/100 leukocyt eson 03-15-2022 Monocytes/100 WBC (Bld) 7.9 % 0-10 [facility] Work Phone: Blood platelet mean volumeon 03-15-2022 Platelet mean volume (Bld) [Entitic vol] 9.8 fL 6.2-12.0 [facility] Work Phone: Determination of erythrocyte mean corpuscular volume (MCV)on 03-15-2022 MCV (RBC) [Entitic vol] 93.2 fL 80-94 [facility] Work Phone: Hematocrit Auto (Bld) [Volum e fraction]on 03-15-2022 Hematocrit (Bld) [Volume fraction] 49.5 % 40-54 [facility] Work Phone: INR in Blood by Coagulation assayon 03-15-2022 INR Coag (Bld) [Relative time] 0.9 {INR} [facility] Work Phone: Laboratory - Chemistry and C hemistry - challengeon 03-15-2022 ALP [Catalytic activity/Vol] 71 U/L 45-117 [facility] Work Phone: ALT [Catalytic activity/Vol] 41 U/L 16-61 [facility] Work Phone: [phone] CO2 [Moles/Vol] 28.0 mmol/L 21.0-32.0 [facility] Work Phone: Globulin (S) [Mass/Vol] 4.1 g/dL 2.2-4.2 [facility] Work Phone: Urea nitrogen/Creatinine [Mass ratio] 21.2 mg/mg 10-20 [facility] Work Phone: Laboratory - Coagulationon 0 03-15-2022 PT Coag (PPP) [Time] 11.8 s 11.7-14.9 [facility] - Hematology and Cell countson 03-15-2022 Erythrocyte distribution width (RBC) [Entitic vol] 44.0 fL 35.1-43.9 [facility] Work Phone: Erythrocyte distribution width (RBC) [Ratio] 12.7 % 11.6-14.6 [facility] Work Phone: Immature granulocytes/100 WBC (Bld) 0.800 % 0.0-0.9 [facility] Work Phone: Comment on above: IG% - Immature Granu locytes (promyelocytes, myelocytes and metamyelocytes) > 1% indicates that a LEFT SHIFT is Present. MCH (RBC) [Entitic mass] 32.0 pg 27.0-32.0 [facility] Work Phone: Nucleated RBC/100 WBC (Bld) [Ratio] 0 % 0-5 [facility] Work Phone: [phone] MCHC Auto (RBC) [Mass/Vol]on 03-15-2022 MCHC (RBC) [Mass/Vol] 34.3 g/dL 32-36 [facility] Work Phone: No Panel Informationon 03-15 Carbamazepine (Tegretol) Level 7.3 ug/mL 4.0-12.0 [facility] Work Phone: [phone] Estimated GFR (MDRD) Amer 101 mL/min >60 [facility] Work Phone: [phone] Comment on above: GFR Calc Estimated GFR (MDRD) Non-Af Amer 84 mL/min >60 [facility] Work Phone: [phone] Comment on above: Non- GFR Calc Platelets bldon 03-15-2022 Platelets (Bld) [#/Vol] 327 10*3/uL 150-450 [facility] Work Phone: [phone] Serum or plasma albumin luis urement (mass/volume)on 03-15-2022 Albumin [Mass/Vol] 3.1 g/dL 3.2-5.0 [facility] Work Phone: [phone] Serum or plasma albumin/glob ulin mass ratioon 03-15-2022 Albumin/Globulin [Mass ratio] 0.8 {ratio} 0.9-2.4 [facility] Work Phone: [phone] Serum or plasma calcium luis urement (mass/volume)on 03-15-2022 Calcium [Mass/Vol] 9.1 mg/dL 8.5-10.1 [facility] Work Phone: Serum or plasma cholesterol in HDL measurement (mass/volume)on 03-15-2022 Cholesterol in HDL [Mass/Vol] 72 mg/dL >40 [facility] Work Phone: Comment on above: The drugs N-Acetylcy steine and Metamizole may falsely depress this assay. Reference Range HDL <40 mg/dL Low HDL Cholesterol HDL >or= 60 mg/dL High HDL Cholesterol Serum or plasma cholesterol in VLDL measurement (mass/volume)on 03-15-2022 Cholesterol in VLDL [Mass/Vol] 24 mg/dL 5-40 [facility] Work Phone: Serum or plasma creatinine m easurement (mass/volume)on 03-15-2022 Creatinine [Mass/Vol] 0.94 mg/dL 0.70-1.30 [facility] Work Phone: Comment on above: The validity of the calculated GFR & GFRAA in patients over 70 years has not been determined. Clinical correlation is essential. Serum or plasma low density lipoprotein (LDL) cholesterol measurement (mass/volume)on 03-15-2022 Cholesterol in LDL [Mass/Vol] 41 mg/dL 0-130 [facility] Work Phone: Serum or plasma urea nitroge n measurement (mass/volume)on 03-15-2022 Urea nitrogen [Mass/Vol] 20 mg/dL 7-18 [facility] Work Phone: Thin prep Papanicolaou smear with manual screeningon 03-15-2022 Thin prep Papanicolaou smear with manual screening 54 U/L 15-37 [facility] Work Phone: Comment on above: Slight Hemolysis, Re sult may be falsely increased. Thin prep Papanicolaou smear with manual screening 9 5-15 [facility] Work Phone: Absolute lymphocyte counton 03-02-2022 Lymphocytes Auto (Unsp spec) [#/Vol] 1.54 10*3/uL 0.83-4.51 [facility] Work Phone: Basophil percentageon 2021 Basophils/100 WBC (Bld) 0.9 % 0-1 [facility] Work Phone: Bilirubin [Mass/Vol] 0.20 mg/dL 0.20-1.00 [facility] Work Phone: Comment on above: For patients on eltr ombopag therapy, use of Dimension [place] TBIL is not recommended. Chloride [Moles/Vol] 101 mmol/L 98-107 [facility] Work Phone: Eosinophils/100 WBC (Bld) 1.0 % 0-5 [facility] Work Phone: Glucose [Mass/Vol] 98 mg/dL 74-106 [facility] Work Phone: Neutrophils (Bld) [#/Vol] 4.6 10*3/uL 2.0-7.7 [facility] Work Phone: Neutrophils/100 WBC (Bld) 67.4 % 47-70 [facility] Work Phone: Potassium [Moles/Vol] 3.8 mmol/L 3.5-5.1 [facility] Work Phone: Protein [Mass/Vol] 7.5 g/dL 6.4-8.2 [facility] Work Phone: Sodium [Moles/Vol] 138 mmol/L 136-145 [facility] Work Phone: WBC (Bld) [#/Vol] 6.8 10*3/uL 4.4-11.0 [facility] Work Phone: Blood erythrocytes count (nu mber/volume)on 03-02-2022 RBC (Bld) [#/Vol] 5.14 10*6/uL 4.6-6.2 [facility] Work Phone: Blood hemoglobin measurement (mass/volume)on 03-02-2022 Hemoglobin (Bld) [Mass/Vol] 16.3 g/dL 13.0-16.5 [facility] Work Phone: Blood lymphocytes/100 leukoc yteson 03-02-2022 Lymphocytes/100 WBC (Bld) 22.8 % 19-41 [facility] Work Phone: Blood monocytes/100 leukocyt eson 03-02-2022 Monocytes/100 WBC (Bld) 7.3 % 0-10 [facility] Work Phone: Blood platelet mean volumeon 03-02-2022 Platelet mean volume (Bld) [Entitic vol] 9.9 fL 6.2-12.0 [facility] Work Phone: Determination of erythrocyte mean corpuscular volume (MCV)on 03-02-2022 MCV (RBC) [Entitic vol] 94.9 fL 80-94 [facility] Work Phone: Hematocrit Auto (Bld) [Volum e fraction]on 03-02-2022 Hematocrit (Bld) [Volume fraction] 48.8 % 40-54 [facility] Work Phone: Laboratory - Chemistry and C hemistry - challengeon 03-02-2022 ALP [Catalytic activity/Vol] 67 U/L 45-117 [facility] Work Phone: ALT [Catalytic activity/Vol] 27 U/L 16-61 [facility] Work Phone: CO2 [Moles/Vol] 30.0 mmol/L 21.0-32.0 [facility] Work Phone: Globulin (S) [Mass/Vol] 3.7 g/dL 2.2-4.2 [facility] Work Phone: Lipase [Catalytic activity/Vol] 95 U/L 73-393 [facility] Work Phone: Urea nitrogen/Creatinine [Mass ratio] 14.8 mg/mg 10-20 [facility] Work Phone: Laboratory - Hematology and Cell countson 03-02-2022 Erythrocyte distribution width (RBC) [Entitic vol] 47.0 fL 35.1-43.9 [facility] Work Phone: Erythrocyte distribution width (RBC) [Ratio] 13.9 % 11.6-14.6 [facility] Work Phone: [phone] Immature granulocytes/100 WBC (Bld) 0.600 % 0.0-0.9 [facility] Work Phone: [phone] Comment on above: IG% - Immature Granu locytes (promyelocytes, myelocytes and metamyelocytes) > 1% indicates that a LEFT SHIFT is Present. MCH (RBC) [Entitic mass] 31.7 pg 27.0-32.0 [facility] Work Phone: [phone] Nucleated RBC/100 WBC (Bld) [Ratio] 0 % 0-5 [facility] Work Phone: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 fraction] 29.4 % 40-54 [facility] Work Phone: [phone] INR in Blood by Coagulation assayon 12-01-2021 INR Coag (Bld) [Relative time] 1.4 {INR} [facility] Work Phone: [phone] Laboratory - Chemistry and C hemistry - challengeon 12-01-2021 CO2 [Moles/Vol] 26.0 mmol/L 21.0-32.0 [facility] Work Phone: Urea nitrogen/Creatinine [Mass ratio] 14.6 mg/mg 10-20 [facility] Work Phone: Laboratory - Coagulationon 0 12-01-2021 PT Coag (PPP) [Time] 16.9 s 11.7-14.9 [facility] Work Phone: Laboratory - Hematology and Cell countson 12-01-2021 Erythrocyte distribution width (RBC) [Entitic vol] 68.4 fL 35.1-43.9 [facility] Work Phone: Erythrocyte distribution width (RBC) [Ratio] 26.7 % 11.6-14.6 [facility] Work Phone: MCH (RBC) [Entitic mass] 24.3 pg 27.0-32.0 [facility] Work Phone: MCHC Auto (RBC) [Mass/Vol]on 12-01-2021 MCHC (RBC) [Mass/Vol] 28.2 g/dL 32-36 [facility] Work Phone: No Panel Informationon 12-01 Estimated GFR (MDRD) Amer 99 mL/min >60 [facility] Work Phone: Comment on above: GFR Calc Estimated GFR (MDRD) Non-Af Amer 82 mL/min >60 [facility] Work Phone: Comment on above: Non- GFR Calc Platelets bldon 12-01-2021 Platelets (Bld) [#/Vol] 307 10*3/uL 150-450 [facility] Work Phone: Serum or plasma calcium luis urement (mass/volume)on 12-01-2021 Calcium [Mass/Vol] 9.5 mg/dL 8.5-10.1 [facility] Work Phone: Serum or plasma creatinine m easurement (mass/volume)on 12-01-2021 Creatinine [Mass/Vol] 0.96 mg/dL 0.70-1.30 [facility] Work Phone: Comment on above: The validity of the calculated GFR & GFRAA in patients over 70 years has not been determined. Clinical correlation is essential. Serum or plasma urea nitroge n measurement (mass/volume)on 12-01-2021 Urea nitrogen [Mass/Vol] 14 mg/dL 7-18 [facility] Work Phone: Thin prep Papanicolaou smear with manual screeningon 12-01-2021 Thin prep Papanicolaou smear with manual screening 7 -15 [facility] Work Phone: Absolute lymphocyte counton 11-30-2021 Lymphocytes Auto (Unsp spec) [#/Vol] 1.13 10*3/uL 0.83-4.51 [facility] Work Phone: Basophil percentageon 2021 Basophil percentage 3.4 mg/dL 2.5-4.9 [facility] Work Phone: Basophils/100 WBC (Bld) 1.5 % 0-1 [facility] Work Phone: Chloride [Moles/Vol] 107 mmol/L 98-107 [facility] Work Phone: Eosinophils/100 WBC (Bld) 3.5 % 0-5 [facility] Work Phone: Glucose [Mass/Vol] 90 mg/dL 74-106 [facility] Work Phone: Neutrophils (Bld) [#/Vol] 6.9 10*3/uL 2.0-7.7 [facility] Work Phone: Neutrophils/100 WBC (Bld) 74.4 % 47-70 [facility] Work Phone: Potassium [Moles/Vol] 3.4 mmol/L 3.5-5.1 [facility] Work Phone: Sodium [Moles/Vol] 140 mmol/L 136-145 [facility] Work Phone: WBC (Bld) [#/Vol] 9.3 10*3/uL 4.4-11.0 [facility] Work Phone: Blood erythrocytes count (nu mber/volume)on 11-30-2021 RBC (Bld) [#/Vol] 3.21 10*6/uL 4.6-6.2 [facility] Work Phone: Blood hemoglobin measurement (mass/volume)on 11-30-2021 Hemoglobin (Bld) [Mass/Vol] 7.8 g/dL 13.0-16.5 [facility] Work Phone: Blood lymphocytes/100 leukoc yteson 11-30-2021 Lymphocytes/100 WBC (Bld) 12.2 % 19-41 [facility] Work Phone: Blood monocytes/100 leukocyt eson 11-30-2021 Monocytes/100 WBC (Bld) 7.0 % 0-10 [facility] Work Phone: Blood platelet mean volumeon 11-30-2021 Platelet mean volume (Bld) [Entitic vol] 10.8 fL 6.2-12.0 [facility] Work Phone: Blood polychromasia detectio n by light microscopyon 11-30-2021 Polychromasia LM Ql (Bld) 2+ [facility] Work Phone: Determination of erythrocyte mean corpuscular volume (MCV)on 11-30-2021 MCV (RBC) [Entitic vol] 83.8 fL 80-94 [facility] Work Phone: Hematocrit Auto (Bld) [Volum e fraction]on 11-30-2021 Hematocrit (Bld) [Volume fraction] 26.9 % 40-54 [facility] Work Phone: INR in Blood by Coagulation assayon 11-30-2021 INR Coag (Bld) [Relative time] 1.4 {INR} [facility] Work Phone: Laboratory - Chemistry and C hemistry - challengeon 11-30-2021 CO2 [Moles/Vol] 26.0 mmol/L 21.0-32.0 [facility] Work Phone: Urea nitrogen/Creatinine [Mass ratio] 12.0 mg/mg 10-20 [facility] Work Phone: [phone] Laboratory - Coagulationon 0 11-30-2021 PT Coag (PPP) [Time] 17.1 s 11.7-14.9 [facility] Work Phone: Laboratory - Hematology and Cell countson 11-30-2021 Anisocytosis Ql (Bld) 2+ [facility] Work Phone: [phone] Erythrocyte distribution width (RBC) [Entitic vol] 64.9 fL 35.1-43.9 [facility] Work Phone: [phone] Erythrocyte distribution width (RBC) [Ratio] 24.2 % 11.6-14.6 [facility] Work Phone: Immature granulocytes/100 WBC (Bld) 1.400 % 0.0-0.9 [facility] Work Phone: Comment on above: IG% - Immature Granu locytes (promyelocytes, myelocytes and metamyelocytes) > 1% indicates that a LEFT SHIFT is Present. MCH (RBC) [Entitic mass] 24.3 pg 27.0-32.0 [facility] Work Phone: Nucleated RBC/100 WBC (Bld) [Ratio] 2.7 % 0-5 [facility] Work Phone: MCHC Auto (RBC) [Mass/Vol]on 11-30-2021 MCHC (RBC) [Mass/Vol] 29.0 g/dL 32-36 [facility] Work Phone: No Panel Informationon 11-30 Estimated Creatinine Clearance Calc 70.99 ml/min [facility] Work Phone: Estimated GFR (MDRD) Amer 105 mL/min >60 [facility] Work Phone: [phone] Comment on above: GFR Calc Estimated GFR (MDRD) Non-Af Amer 87 mL/min >60 [facility] Work Phone: [phone] Comment on above: Non- GFR Calc Anti-Gliadin IgA Antibody 3 units 0-19 [facility] Work Phone: [phone] Comment on above: Negative 0 - 19 Weak Positive 20 - 30 Moderate to Strong Positive >30 Anti-Gliadin IgG Antibody 1 units 0-19 [facility] Work Phone: [phone] Comment on above: Negative 0 - 19 Weak Positive 20 - 30 Moderate to Strong Positive >30 Endomysial IgA Antibody Negative Negative [facility] Work Phone: [phone] Tissue Transglutaminase IgG Ab <2 U/mL 0-5 [facility] Work Phone: Comment on above: Negative 0 - 5 Weak Positive 6 - 9 Positive >9 Platelets bldon 11-30-2021 Platelets (Bld) [#/Vol] 305 10*3/uL 150-450 [facility] Work Phone: Serum IgA measurement (units /volume)on 11-30-2021 IgA Qn (S) 128 mg/dL 61-437 [facility] Work Phone: Comment on above: Performed at: [employer] [facility] [employer] [place] [id number] Director: Дмитрий Tran PhD, Phone: [phone] Serum or plasma calcium luis urement (mass/volume)on 11-30-2021 Calcium [Mass/Vol] 8.9 mg/dL 8.5-10.1 [facility] Work Phone: Serum or plasma creatinine m easurement (mass/volume)on 11-30-2021 Creatinine [Mass/Vol] 0.91 mg/dL 0.70-1.30 [facility] Work Phone: Comment on above: The validity of the calculated GFR & GFRAA in patients over 70 years has not been determined. Clinical correlation is essential. Serum or plasma urea nitroge n measurement (mass/volume)on 11-30-2021 Urea nitrogen [Mass/Vol] 11 mg/dL 7-18 [facility] Work Phone: Serum tissue transglutaminas e IgA antibody assay (units/volume)on 11-30-2021 tTG IgA Qn (S) <2 U/mL 0-3 [facility] Work Phone: Comment on above: Negative 0 - 3 Weak Positive 4 - 10 Positive >10 Tissue Transglutaminase (tTG) has been identified as the endomysial antigen. Studies have demonstr- ated that endomysial IgA antibodies have over 99% specificity for gluten sensitive enteropathy. Thin prep Papanicolaou smear with manual screeningon 11-30-2021 Thin prep Papanicolaou smear with manual screening 7 5-15 [facility] Work Phone: Blood platelet adequacy dete ction by light microscopyon 11-29-2021 Platelets LM Ql (Bld) ADEQUATE ADEQ [facility] Work Phone: Hypochromatic red blood cell detectionon 11-29-2021 Hypochromia Ql (Bld) 1+ [facility] Work Phone: Serum or plasma ferritin arlyn surement (mass/volume)on 11-29-2021 Ferritin [Mass/Vol] 157 ng/mL 26-388 [facility] Work Phone: Blood manual differential co mment interpretation (narrative result)on 11-28-2021 Manual differential comment Ghassan (Bld) [Interp] SCANNED [facility] Work Phone: Laboratory - Chemistry and C hemistry - challengeon 11-28-2021 Magnesium [Mass/Vol] 2.0 mg/dL 1.6-2.6 [facility] Work Phone: Macrocytes detectionon 11-28 Macrocytes Ql (Bld) RARE [facility] Work Phone: Ovalocyte detectionon 2021 Ovalocytes LM Ql (Bld) 1+ [facility] Work Phone: Thin prep Papanicolaou smear with manual screeningon 11-28-2021 Thin prep Papanicolaou smear with manual screening 1+ [facility] Work Phone: Laboratory - Chemistry and C hemistry - challengeon 11-26-2021 Cobalamin (Vitamin B12) [Mass/Vol] 403 pg/mL 211-911 [facility] Work Phone: No Panel Informationon 11-26 Troponin I High Sensitivity 13 pg/mL 3.0-78.0 [facility] Work Phone: Comment on above: Please Note: New [place] t Units and Gender Specific Reference Ranges. For more information see Policy Stat Procedure [place] High Sensitivity Troponin (TNIH) and attachments. Absolute lymphocyte counton 11-25-2021 Lymphocytes Auto (Unsp spec) [#/Vol] 0.81 10*3/uL 0.83-4.51 [facility] Work Phone: Basophil percentageon 2021 Basophil percentage 0 SEEN /hpf 0-5 [facility] Work Phone: Basophils/100 WBC (Bld) 0.7 % 0-1 [facility] Work Phone: Eosinophils/100 WBC (Bld) 0.1 % 0-5 [facility] Work Phone: Neutrophils (Bld) [#/Vol] 5.8 10*3/uL 2.0-7.7 [facility] Work Phone: Neutrophils/100 WBC (Bld) 80.9 % 47-70 [facility] Work Phone: WBC (Bld) [#/Vol] 7.1 10*3/uL 4.4-11.0 [facility] Work Phone: Bilirubin [Mass/Vol] 0.20 mg/dL 0.20-1.00 [facility] Work Phone: Comment on above: For patients on eltr ombopag therapy, use of Dimension [place] TBIL is not recommended. Chloride [Moles/Vol] 101 mmol/L 98-107 [facility] Work Phone: Glucose [Mass/Vol] 113 mg/dL 74-106 [facility] Work Phone: Comment on above: Fasting Glucose resu lt from 100 to 125 mg/dL suggests IMPAIRED HOMEOSTASIS per A.D.A. criteria. Potassium [Moles/Vol] 4.2 mmol/L 3.5-5.1 [facility] Work Phone: Protein [Mass/Vol] 6.8 g/dL 6.4-8.2 [facility] Work Phone: Sodium [Moles/Vol] 133 mmol/L 136-145 [facility] Work Phone: [phone] Bilirubin Test strip Ql (U)o n 11-25-2021 Bilirubin Ql (U) Negative Negative [facility] Work Phone: Blood erythrocytes count (nu mber/volume)on 11-25-2021 RBC (Bld) [#/Vol] 2.36 10*6/uL 4.6-6.2 [facility] Work Phone: Blood hemoglobin measurement (mass/volume)on 11-25-2021 Hemoglobin (Bld) [Mass/Vol] 4.4 g/dL 13.0-16.5 [facility] Work Phone: Comment on above: CRITICAL VALUE VERIF IED. CALLED TO [id number] Kateryna Horn.RESULTS READ BACK BY SAME . Blood lymphocytes/100 leukoc yteson 11-25-2021 Lymphocytes/100 WBC (Bld) 11.4 % 19-41 [facility] Work Phone: Blood manual differential co mment interpretation (narrative result)on 11-25-2021 Manual differential comment Ghassan (Bld) [Interp] SCANNED [facility] Work Phone: Comment on above: ANEMIA NOTED Blood monocytes/100 leukocyt eson 11-25-2021 Monocytes/100 WBC (Bld) 6.3 % 0-10 [facility] Work Phone: [phone] Blood platelet mean volumeon 11-25-2021 Platelet mean volume (Bld) [Entitic vol] 10.2 fL 6.2-12.0 [facility] Work Phone: Determination of erythrocyte mean corpuscular volume (MCV)on 11-25-2021 MCV (RBC) [Entitic vol] 71.6 fL 80-94 [facility] Work Phone: [phone] Hematocrit Auto (Bld) [Volum e fraction]on 11-25-2021 Hematocrit (Bld) [Volume fraction] 16.9 % 40-54 [facility] Work Phone: [phone] Hemoglobin in reticulocytes (mass per reticulocyte)on 11-25-2021 Hemoglobin (Reticulocytes) [Entitic mass] 15.0 pg 30-35 [facility] Work Phone: Hypochromatic red blood cell detectionon 11-25-2021 Hypochromia Ql (Bld) 1+ [facility]: [phone] INR in Blood by Coagulation assayon 11-25-2021 INR Coag (Bld) [Relative time] 5.4 {INR} [facility] Work Phone: [phone] Comment on above: CRITICAL VALUE VERIF IED. CALLED TO [id number] Kateryna Horn.RESULTS READ BACK BY SAME . Iron measurement (mass/mass) on 11-25-2021 Iron (Unsp spec) [Mass/Mass] 10 ug/dL 65-175 [facility] Work Phone: Ketones Test strip Ql (U)on 11-25-2021 Ketones Ql (U) Negative Negative [facility] Work Phone: [phone] Laboratory - Chemistry and C hemistry - challengeon 11-25-2021 ALP [Catalytic activity/Vol] 54 U/L 45-117 [facility] Work Phone: ALT [Catalytic activity/Vol] 20 U/L 16-61 [facility] Work Phone: [phone] CO2 [Moles/Vol] 23.0 mmol/L 21.0-32.0 [facility] Work Phone: [phone] Globulin (S) [Mass/Vol] 3.1 g/dL 2.2-4.2 [facility] Work Phone: Urea nitrogen/Creatinine [Mass ratio] 16.7 mg/mg 10-20 [facility] Work Phone: Laboratory - Coagulationon 0 11-25-2021 PT Coag (PPP) [Time] 49.2 s 11.7-14.9 [facility] Work Phone: Laboratory - Hematology and Cell countson 11-25-2021 Erythrocyte distribution width (RBC) [Entitic vol] 48.7 fL 35.1-43.9 [facility] Work Phone: [phone] Erythrocyte distribution width (RBC) [Ratio] 18.6 % 11.6-14.6 [facility] Work Phone: [phone] Immature granulocytes/100 WBC (Bld) 0.600 % 0.0-0.9 [facility] Work Phone: [phone] Comment on above: IG% - Immature Granu locytes (promyelocytes, myelocytes and metamyelocytes) > 1% indicates that a LEFT SHIFT is Present. MCH (RBC) [Entitic mass] 18.6 pg 27.0-32.0 [facility] Work Phone: [phone] Nucleated RBC/100 WBC (Bld) [Ratio] 0.6 % 0-5 [facility] Work Phone: Lower GI hemoglobin IA Ql (S tl)on 11-25-2021 Stool Occult Blood (LACI) Positive [facility] Work Phone: [phone] MCHC Auto (RBC) [Mass/Vol]on 11-25-2021 MCHC (RBC) [Mass/Vol] 26.0 g/dL 32-36 [facility] Work Phone: Mucus LM Ql (Urine sed)on Mucus Ql (Urine sed) 0 SEEN /hpf [facility] Work Phone: [phone] Nitrite Test strip Ql (U)on 11-25-2021 Nitrite Ql (U) Negative Negative [facility] Work Phone: No Panel Informationon 11-25 Immature Reticulocyte Fraction 25.00 % 3.00-15.90 [facility] Work Phone: [phone] Reticulocyte Count 2.10 % 0.5-1.5 [facility] Work Phone: Estimated Creatinine Clearance Calc 44.86 ml/min [facility] Work Phone: Estimated GFR (MDRD) Amer 62 mL/min >60 [facility] Work Phone: Comment on above: GFR Calc Estimated GFR (MDRD) Non-Af Amer 51 mL/min >60 [facility] Work Phone: Comment on above: Non- GFR Calc Total Iron Binding Capacity 466 ug/dL 250-450 [facility] Work Phone: Platelets bldon 11-25-2021 Platelets (Bld) [#/Vol] 398 10*3/uL 150-450 [facility] Work Phone: [phone] Protein Test strip Ql (U)on 11-25-2021 Protein Ql (U) Negative Negative [facility] Work Phone: [phone] Review by pathologiston Pathologist review Ghassan (Unsp spec) [Interp] October jj [facility] Work Phone: Pathologist review Ghassan (Unsp spec) [Interp] Reviewed [facility] Work Phone: [phone] Comment on above: Previous reported re sult: Lena gardner Edited by: RGOROMMEL on 11/26/21:1239Severe Microcytic anemia.Clinical correlation necessary.Sebastian Gonzalez M.D. 11/26/21 AMENDED REPORT 11/26/21 1239 PATH REV previously reported as: October jj Serum or plasma albumin luis urement (mass/volume)on 11-25-2021 Albumin [Mass/Vol] 3.7 g/dL 3.2-5.0 [facility] Work Phone: Serum or plasma albumin/glob ulin mass ratioon 11-25-2021 Albumin/Globulin [Mass ratio] 1.2 {ratio} 0.9-2.4 [facility] Work Phone: Serum or plasma calcium luis urement (mass/volume)on 11-25-2021 Calcium [Mass/Vol] 8.2 mg/dL 8.5-10.1 [facility] Work Phone: [phone] Serum or plasma creatinine m easurement (mass/volume)on 11-25-2021 Creatinine [Mass/Vol] 1.44 mg/dL 0.70-1.30 [facility] Work Phone: Comment on above: The validity of the calculated GFR & GFRAA in patients over 70 years has not been determined. Clinical correlation is essential. Serum or plasma ferritin arlyn surement (mass/volume)on 11-25-2021 Ferritin [Mass/Vol] 5 ng/mL 26-388 [facility] Work Phone: [phone] Serum or plasma folate measu rement (mass/volume)on 11-25-2021 Folate [Mass/Vol] 12.90 ng/mL 3.1-55.4 [facility] Work Phone: [phone] Serum or plasma iron saturat ion measurement (mass fraction)on 11-25-2021 Iron saturation [Mass fraction] 2.1 % 15.0-55.0 [facility] Work Phone: Serum or plasma urea nitroge n measurement (mass/volume)on 11-25-2021 Urea nitrogen [Mass/Vol] 24 mg/dL 7-18 [facility] Work Phone: [phone] Squamous epithelial cells de tection in urine sediment by light microscopyon 11-25-2021 Epithelial cells.squamous LM Ql (Urine sed) 0 SEEN /hpf 0-5 [facility] Work Phone: [phone] Thin prep Papanicolaou smear with manual screeningon 11-25-2021 Thin prep Papanicolaou smear with manual screening 10 U/L 15-37 [facility] Work Phone: [phone] Thin prep Papanicolaou smear with manual screening 9 5-15 [facility] Work Phone: [phone] Urine blood detectionon RBC Ql (U) 50 /ul Negative [facility] Work Phone: RBC Ql (U) 5-10 SEEN /hpf 0-5 [facility] Work Phone: Urine clarityon 11-25-2021 Clarity (U) Clear Clear [facility] Work Phone: Urine color determinationon 11-25-2021 Color (U) Straw Yellow [facility] Work Phone: Urine glucose detectionon Glucose Ql (U) Normal mg/dl Normal [facility] Work Phone: [phone] Urine leukocyte esterase det ection by dipstickon 11-25-2021 Leukocyte esterase Test strip Ql (U) Negative Negative [facility] Work Phone: Urine pHon 11-25-2021 pH (U) 7.0 [pH] 5.0 - 8.0 [facility] Work Phone: Urine sediment bacteria coun t by microscopy (number/high power field)on 11-25-2021 Bacteria LM.HPF (Urine sed) [#/Area] RARE /hpf None Seen [facility] Work Phone: Urine specific gravity measu rementon 11-25-2021 Specific gravity (U) [Rel density] 1.010 1.002-1.030 [facility] Work Phone: Urobilinogen Auto test strip Ql (U)on 11-25-2021 Urobilinogen Ql (U) Normal mg/dl Normal [facility] Work Phone: INR in Blood by Coagulation assayon 11-11-2021 INR Coag (Bld) [Relative time] 1.2 {INR} Laboratory - Coagulationon 0 11-11-2021 PT Coag (PPP) [Time] 15.1 s 11.7-14.9 [facility] Work Phone: No Panel Informationon 11-08 DLCO (ml/min/mmHg) 7.15 ml/min/mmHg DLCO/VA (ml/min/mmHg/L) 1.63 ml/min/mmHg/L [id number]% PRE (L/S) 0.30 L/S [facility] FEV1 PRE (L) 0.85 L FEV1/FVC PRE (%) 0.38 % [facility] FVC PRE (L) 2.23 L PEF PRE (L/S) 1.51 L/S VA (L) 4.38 L [facility] CNCOon 10-18-2021 CNCO Letter Text Letter Text Normal [facility] INR FINGERSTICK B/Oon 2021 INR Coag (Bld) [Relative time] 2.2 EXT Quality Check No Absolute lymphocyte counton 10-08-2021 Lymphocytes Auto (Unsp spec) [#/Vol] 1.26 10*3/uL 0.83-4.51 [facility] Work Phone: Basophil percentageon 2021 Basophil percentage 10-25 SEEN /hpf 0-5 [facility] Work Phone: Basophils/100 WBC (Bld) 1.3 % 0-1 [facility] Work Phone: Bilirubin [Mass/Vol] 0.30 mg/dL 0.20-1.00 [facility] Work Phone: Comment on above: For patients on eltr ombopag therapy, use of Dimension [place] TBIL is not recommended. Chloride [Moles/Vol] 105 mmol/L 98-107 [facility] Work Phone: Eosinophils/100 WBC (Bld) 0.5 % 0-5 [facility] Work Phone: Glucose [Mass/Vol] 99 mg/dL 74-106 [facility] Work Phone: Neutrophils (Bld) [#/Vol] 4.3 10*3/uL 2.0-7.7 [facility] Work Phone: Neutrophils/100 WBC (Bld) 70.4 % 47-70 [facility] Work Phone: Potassium [Moles/Vol] 3.7 mmol/L 3.5-5.1 [facility] Work Phone: Protein [Mass/Vol] 7.5 g/dL 6.4-8.2 [facility] Work Phone: Sodium [Moles/Vol] 138 mmol/L 136-145 [facility] Work Phone: WBC (Bld) [#/Vol] 6.1 10*3/uL 4.4-11.0 [facility] Work Phone: Bilirubin Test strip Ql (U)o n 10-08-2021 Bilirubin Ql (U) Negative Negative [facility] Work Phone: Blood erythrocytes count (nu mber/volume)on 10-08-2021 RBC (Bld) [#/Vol] 3.87 10*6/uL 4.6-6.2 [facility] Work Phone: Blood hemoglobin measurement (mass/volume)on 10-08-2021 Hemoglobin (Bld) [Mass/Vol] 8.3 g/dL 13.0-16.5 [facility] Work Phone: Blood lymphocytes/100 leukoc yteson 10-08-2021 Lymphocytes/100 WBC (Bld) 20.5 % 19-41 [facility] Work Phone: Blood monocytes/100 leukocyt eson 10-08-2021 Monocytes/100 WBC (Bld) 7.0 % 0-10 [facility] Work Phone: Blood platelet mean volumeon 10-08-2021 Platelet mean volume (Bld) [Entitic vol] 10.1 fL 6.2-12.0 [facility] Work Phone: Determination of erythrocyte mean corpuscular volume (MCV)on 10-08-2021 MCV (RBC) [Entitic vol] 74.7 fL 80-94 [facility] Work Phone: Hematocrit Auto (Bld) [Volum e fraction]on 10-08-2021 Hematocrit (Bld) [Volume fraction] 28.9 % 40-54 [facility] Work Phone: INR in Blood by Coagulation assayon 10-08-2021 INR Coag (Bld) [Relative time] 2.4 {INR} [facility] Work Phone: Ketones Test strip Ql (U)on 10-08-2021 Ketones Ql (U) Negative Negative [facility] Work Phone: Laboratory - Chemistry and C hemistry - challengeon 10-08-2021 ALP [Catalytic activity/Vol] 74 U/L 45-117 [facility] Work Phone: ALT [Catalytic activity/Vol] 21 U/L 16-61 [facility] Work Phone: [phone] CO2 [Moles/Vol] 30.0 mmol/L 21.0-32.0 [facility] Work Phone: Globulin (S) [Mass/Vol] 3.7 g/dL 2.2-4.2 [facility] Work Phone: [phone] Lipase [Catalytic activity/Vol] 93 U/L 73-393 [facility] Work Phone: [phone] Urea nitrogen/Creatinine [Mass ratio] 20.2 mg/mg 10-20 [facility] Work Phone: Laboratory - Coagulationon 0 10-08-2021 PT Coag (PPP) [Time] 25.7 s 11.7-14.9 [facility] Work Phone: [phone] Laboratory - Hematology and Cell countson 10-08-2021 Erythrocyte distribution width (RBC) [Entitic vol] 50.4 fL 35.1-43.9 [facility] Work Phone: [phone] Erythrocyte distribution width (RBC) [Ratio] 18.6 % 11.6-14.6 [facility] Work Phone: [phone] Immature granulocytes/100 WBC (Bld) 0.300 % 0.0-0.9 [facility] Work Phone: Comment on above: IG% - Immature Granu locytes (promyelocytes, myelocytes and metamyelocytes) > 1% indicates that a LEFT SHIFT is Present. MCH (RBC) [Entitic mass] 21.4 pg 27.0-32.0 [facility] Work Phone: [phone] Nucleated RBC/100 WBC (Bld) [Ratio] 0 % 0-5 [facility] Work Phone: [phone] MCHC Auto (RBC) [Mass/Vol]on 10-08-2021 MCHC (RBC) [Mass/Vol] 28.7 g/dL 32-36 [facility] Work Phone: [phone] Mucus LM Ql (Urine sed)on Mucus Ql (Urine sed) 0 SEEN /hpf [facility] Work Phone: [phone] Nitrite Test strip Ql (U)on 10-08-2021 Nitrite Ql (U) Positive Negative [facility] Work Phone: [phone] Panel Informationon 10-08 Estimated Creatinine Clearance Calc 68.72 ml/min [facility] Work Phone: [phone] GFR (MDRD) Amer 101 mL/min >60 [facility] Work Phone: [phone] Comment on above: GFR Calc Estimated GFR (MDRD) Non-Af Amer 84 mL/min >60 [facility] Work Phone: [phone] Comment on above: Non- GFR Calc Platelets bldon 10-08-2021 Platelets (Bld) [#/Vol] 349 10*3/uL 150-450 [facility] Work Phone: [phone] Protein Test strip Ql (U)on 10-08-2021 Protein Ql (U) 100 mg/dl Negative [facility] Work Phone: [phone] Serum or plasma albumin luis urement (mass/volume)on 10-08-2021 Albumin [Mass/Vol] 3.8 g/dL 3.2-5.0 [facility] Work Phone: [phone] Serum or plasma albumin/glob ulin mass ratioon 10-08-2021 Albumin/Globulin [Mass ratio] 1.0 {ratio} 0.9-2.4 [facility] Work Phone: Serum or plasma calcium luis urement (mass/volume)on 10-08-2021 Calcium [Mass/Vol] 9.1 mg/dL 8.5-10.1 [facility] Work Phone: Serum or plasma creatinine m easurement (mass/volume)on 10-08-2021 Creatinine [Mass/Vol] 0.94 mg/dL 0.70-1.30 [facility] Work Phone: Comment on above: The validity of the calculated GFR & GFRAA in patients over 70 years has not been determined. Clinical correlation is essential. Serum or plasma urea nitroge n measurement (mass/volume)on 10-08-2021 Urea nitrogen [Mass/Vol] 19 mg/dL 7-18 [facility] Work Phone: Squamous epithelial cells de tection in urine sediment by light microscopyon 10-08-2021 Epithelial cells.squamous LM Ql (Urine sed) 0-5 SEEN /hpf 0-5 [facility] Work Phone: Thin prep Papanicolaou smear with manual screeningon 10-08-2021 Thin prep Papanicolaou smear with manual screening 12 U/L 15-37 [facility] Work Phone: Thin prep Papanicolaou smear with manual screening 3 5-15 [facility] Work Phone: Urine blood detectionon 09-18 RBC Ql (U) 10 /ul Negative [facility] Work Phone: RBC Ql (U) 0 SEEN /hpf 0-5 [facility] Work Phone: [phone] Urine clarityon 10-08-2021 Clarity (U) Sl. Cloudy Clear [facility] Work Phone: [phone] Urine color determinationon 10-08-2021 Color (U) Yellow Yellow [facility] Work Phone: [phone] Urine glucose detectionon Glucose Ql (U) Normal mg/dl Normal [facility] Work Phone: [phone] Urine leukocyte esterase det ection by dipstickon 10-08-2021 Leukocyte esterase Test strip Ql (U) 500 /ul Negative [facility] Work Phone: Urine pHon 10-08-2021 pH (U) 6.5 [pH] 5.0 - 8.0 [facility] Work Phone: Urine sediment bacteria coun t by microscopy (number/high power field)on 10-08-2021 Bacteria LM.HPF (Urine sed) [#/Area] 3 /[HPF] None Seen [facility] Work Phone: Urine specific gravity measu rementon 10-08-2021 Specific gravity (U) [Rel density] 1.010 1.002-1.030 [facility] Work Phone: Urobilinogen Auto test strip Ql (U)on 10-08-2021 Urobilinogen Ql (U) Normal mg/dl Normal [facility] Work Phone: Absolute lymphocyte counton 09-22-2021 Lymphocytes Auto (Unsp spec) [#/Vol] 1.51 10*3/uL 0.83-4.51 [facility] Work Phone: Basophil percentageon 2021 Basophils/100 WBC (Bld) 2.1 % 0-1 [facility] Work Phone: Eosinophils/100 WBC (Bld) 5.1 % 0-5 [facility] Work Phone: Neutrophils (Bld) [#/Vol] 3.7 10*3/uL 2.0-7.7 [facility] Work Phone: Neutrophils/100 WBC (Bld) 60.6 % 47-70 [facility] Work Phone: WBC (Bld) [#/Vol] 6.1 10*3/uL 4.4-11.0 [facility] Work Phone: Blood erythrocytes count (nu mber/volume)on 09-22-2021 RBC (Bld) [#/Vol] 4.09 10*6/uL 4.6-6.2 [facility] Work Phone: Blood hemoglobin measurement (mass/volume)on 09-22-2021 Hemoglobin (Bld) [Mass/Vol] 9.1 g/dL 13.0-16.5 [facility] Work Phone: [phone] Blood lymphocytes/100 leukoc yteson 09-22-2021 Lymphocytes/100 WBC (Bld) 24.8 % 19-41 [facility] Work Phone: [phone] Blood monocytes/100 leukocyt eson 09-22-2021 Monocytes/100 WBC (Bld) 6.9 % 0-10 [facility] Work Phone: [phone] Blood platelet mean volumeon 09-22-2021 Platelet mean volume (Bld) [Entitic vol] 9.9 fL 6.2-12.0 [facility] Work Phone: [phone] Determination of erythrocyte mean corpuscular volume (MCV)on 09-22-2021 MCV (RBC) [Entitic vol] 77.5 fL 80-94 [facility] Work Phone: [phone] Hematocrit Auto (Bld) [Volum e fraction]on 09-22-2021 Hematocrit (Bld) [Volume fraction] 31.7 % 40-54 [facility] Work Phone: [phone] Laboratory - Hematology and Cell countson 09-22-2021 Erythrocyte distribution width (RBC) [Entitic vol] 56.2 fL 35.1-43.9 [facility] Work Phone: [phone] Erythrocyte distribution width (RBC) [Ratio] 19.9 % 11.6-14.6 [facility] Work Phone: [phone] Immature granulocytes/100 WBC (Bld) 0.500 % 0.0-0.9 [facility] Work Phone: [phone] Comment on above: IG% - Immature Granu locytes (promyelocytes, myelocytes and metamyelocytes) > 1% indicates that a LEFT SHIFT is Present. MCH (RBC) [Entitic mass] 22.2 pg 27.0-32.0 [facility] Work Phone: Nucleated RBC/100 WBC (Bld) [Ratio] 0 % 0-5 [facility] Work Phone: MCHC Auto (RBC) [Mass/Vol]on 09-22-2021 MCHC (RBC) [Mass/Vol] 28.7 g/dL 32-36 [facility] Work Phone: Platelets bldon 09-22-2021 Platelets (Bld) [#/Vol] 351 10*3/uL 150-450 [facility] Work Phone: CNPNon 09-21-2021 [facility] Telephone ([id number]) PEDRO PABLO SIERRA ([phone]) 1950 M T Date Time Provider Department [...] Reviewed: 09/15/2021 Reviewed by: Anjel Braga APRN.PATIENT CARE ASSOCIATE - Fully Assessed Reason for Visit: Appointment [...] [J43.9] - COMPOUNDED PRESCRIPTION Aerosol supplies Dx:J44.1 NPI#[id number] - COMPOUNDED PRESCRIPTION NEBULIZER FOR HOME USE. [...] left fem (more content not included)... Normal [facility] Absolute lymphocyte counton 09-17-2021 Lymphocytes Auto (Unsp spec) [#/Vol] 1.19 10*3/uL 0.83-4.51 [facility] Work Phone: Basophil percentageon 2021 Basophil percentage 0-5 SEEN /hpf 0-5 [facility] Work Phone: Basophils/100 WBC (Bld) 1.6 % 0-1 [facility] Work Phone: Bilirubin [Mass/Vol] 0.30 mg/dL 0.20-1.00 [facility] Work Phone: Comment on above: For patients on eltr ombopag therapy, use of Dimension [place] TBIL is not recommended. Chloride [Moles/Vol] 104 mmol/L 98-107 [facility] Work Phone: Eosinophils/100 WBC (Bld) 1.1 % 0-5 [facility] Work Phone: Glucose [Mass/Vol] 100 mg/dL 74-106 [facility] Work Phone: Comment on above: Fasting Glucose resu lt from 100 to 125 mg/dL suggests IMPAIRED HOMEOSTASIS per A.D.A. criteria. Neutrophils (Bld) [#/Vol] 5.2 10*3/uL 2.0-7.7 [facility] Work Phone: Neutrophils/100 WBC (Bld) 73.0 % 47-70 [facility] Work Phone: Potassium [Moles/Vol] 4.2 mmol/L 3.5-5.1 [facility] Work Phone: Protein [Mass/Vol] 7.3 g/dL 6.4-8.2 [facility] Work Phone: [phone] Sodium [Moles/Vol] 136 mmol/L 136-145 [facility] Work Phone: [phone] WBC (Bld) [#/Vol] 7.1 10*3/uL 4.4-11.0 [facility] Work Phone: [phone] Bilirubin Test strip Ql (U)o n 09-17-2021 Bilirubin Ql (U) Negative Negative [facility] Work Phone: [phone] Blood erythrocytes count (nu mber/volume)on 09-17-2021 RBC (Bld) [#/Vol] 3.50 10*6/uL 4.6-6.2 [facility] Work Phone: [phone] Blood hemoglobin measurement (mass/volume)on 09-17-2021 Hemoglobin (Bld) [Mass/Vol] 7.9 g/dL 13.0-16.5 [facility] Work Phone: [phone] Blood lymphocytes/100 leukoc yteson 09-17-2021 Lymphocytes/100 WBC (Bld) 16.9 % 19-41 [facility] Work Phone: [phone] Blood monocytes/100 leukocyt eson 09-17-2021 Monocytes/100 WBC (Bld) 7.1 % 0-10 [facility] Work Phone: [phone] Blood platelet mean volumeon 09-17-2021 Platelet mean volume (Bld) [Entitic vol] 9.5 fL 6.2-12.0 [facility] Work Phone: [phone] Determination of erythrocyte mean corpuscular volume (MCV)on 09-17-2021 MCV (RBC) [Entitic vol] 75.1 fL 80-94 [facility] Work Phone: [phone] Hematocrit Auto (Bld) [Volum e fraction]on 09-17-2021 Hematocrit (Bld) [Volume fraction] 26.3 % 40-54 [facility] Work Phone: [phone] INR in Blood by Coagulation assayon 09-17-2021 INR Coag (Bld) [Relative time] 1.3 {INR} [facility] Work Phone: Ketones Test strip Ql (U)on 09-17-2021 Ketones Ql (U) Negative Negative [facility] Work Phone: [phone] Laboratory - Chemistry and C hemistry - challengeon 09-17-2021 ALP [Catalytic activity/Vol] 79 U/L 45-117 [facility] Work Phone: [phone] ALT [Catalytic activity/Vol] 36 U/L 16-61 [facility] Work Phone: [phone] CO2 [Moles/Vol] 25.0 mmol/L 21.0-32.0 [facility] Work Phone: [phone] Globulin (S) [Mass/Vol] 3.5 g/dL 2.2-4.2 [facility] Work Phone: [phone] Lipase [Catalytic activity/Vol] 102 U/L 73-393 [facility] Work Phone: [phone] Urea nitrogen/Creatinine [Mass ratio] 12.5 mg/mg 10-20 [facility] Work Phone: [phone] Laboratory - Coagulationon 0 09-17-2021 PT Coag (PPP) [Time] 15.4 s 11.7-14.9 [facility] Work Phone: Laboratory - Hematology and Cell countson 09-17-2021 Erythrocyte distribution width (RBC) [Entitic vol] 53.1 fL 35.1-43.9 [facility] Work Phone: [phone] Erythrocyte distribution width (RBC) [Ratio] 19.6 % 11.6-14.6 [facility] Work Phone: [phone] Immature granulocytes/100 WBC (Bld) 0.300 % 0.0-0.9 [facility] Work Phone: [phone] Comment on above: IG% - Immature Granu locytes (promyelocytes, myelocytes and metamyelocytes) > 1% indicates that a LEFT SHIFT is Present. MCH (RBC) [Entitic mass] 22.6 pg 27.0-32.0 [facility] Work Phone: Nucleated RBC/100 WBC (Bld) [Ratio] 0 % 0-5 [facility] Work Phone: [phone] MCHC Auto (RBC) [Mass/Vol]on 09-17-2021 MCHC (RBC) [Mass/Vol] 30.0 g/dL 32-36 [facility] Work Phone: Mucus LM Ql (Urine sed)on Mucus Ql (Urine sed) 0 SEEN /hpf [facility] Work Phone: [phone] Nitrite Test strip Ql (U)on 09-17-2021 Nitrite Ql (U) Positive Negative [facility] Work Phone: [phone] Panel Informationon 09-17 Estimated Creatinine Clearance Calc 57.68 ml/min [facility] Work Phone: [phone] Estimated GFR (MDRD) Amer 83 mL/min >60 [facility] Work Phone: [phone] Comment on above: GFR Calc Estimated GFR (MDRD) Non-Af Amer 68 mL/min >60 [facility] Work Phone: [phone] Comment on above: Non- GFR Calc Platelets bldon 09-17-2021 Platelets (Bld) [#/Vol] 342 10*3/uL 150-450 [facility] Work Phone: Protein Test strip Ql (U)on 09-17-2021 Protein Ql (U) 15 mg/dl Negative [facility] Work Phone: [phone] Serum or plasma albumin luis urement (mass/volume)on 09-17-2021 Albumin [Mass/Vol] 3.8 g/dL 3.2-5.0 [facility] Work Phone: [phone] Serum or plasma albumin/glob ulin mass ratioon 09-17-2021 Albumin/Globulin [Mass ratio] 1.1 {ratio} 0.9-2.4 [facility] Work Phone: [phone] or plasma calcium luis urement (mass/volume)on 04-01-2022 Calcium [Mass/Vol] 8.7 mg/dL 8.5-10.1 [facility] Work Phone: Serum or plasma creatinine m easurement (mass/volume)on 09-17-2021 Creatinine [Mass/Vol] 1.12 mg/dL 0.70-1.30 [facility] Work Phone: Comment on above: The validity of the calculated GFR & GFRAA in patients over 70 years has not been determined. Clinical correlation is essential. Serum or plasma urea nitroge n measurement (mass/volume)on 09-17-2021 Urea nitrogen [Mass/Vol] 14 mg/dL 7-18 [facility] Work Phone: Squamous epithelial cells de tection in urine sediment by light microscopyon 09-17-2021 Epithelial cells.squamous LM Ql (Urine sed) 0-5 SEEN /hpf 0-5 [facility] Work Phone: Thin prep Papanicolaou smear with manual screeningon 09-17-2021 Thin prep Papanicolaou smear with manual screening 19 U/L 15-37 [facility] Work Phone: Thin prep Papanicolaou smear with manual screening 7 5-15 [facility] Work Phone: Urine blood detectionon 04-0 RBC Ql (U) Negative Negative [facility] Work Phone: RBC Ql (U) 0 SEEN /hpf 0-5 [facility] Work Phone: Urine clarityon 09-17-2021 Clarity (U) Clear Clear [facility] Work Phone: Urine color determinationon 09-17-2021 Color (U) Yellow Yellow [facility] Work Phone: [phone] Urine glucose detectionon Glucose Ql (U) Normal mg/dl Normal [facility] Work Phone: [phone] Urine leukocyte esterase det ection by dipstickon 09-17-2021 Leukocyte esterase Test strip Ql (U) 25 /ul Negative [facility] Work Phone: [phone] Urine pHon 09-17-2021 pH (U) 6.0 [pH] 5.0 - 8.0 [facility] Work Phone: Urine sediment bacteria coun t by microscopy (number/high power field)on 09-17-2021 Bacteria LM.HPF (Urine sed) [#/Area] 1 /[HPF] None Seen [facility] Work Phone: Urine specific gravity measu rementon 09-17-2021 Specific gravity (U) [Rel density] 1.010 1.002-1.030 [facility] Work Phone: Urobilinogen Auto test strip Ql (U)on 09-17-2021 Urobilinogen Ql (U) Normal mg/dl Normal [facility] Work Phone: PT panel Coag (PPP)on 2021 INR Coag (Bld) [Relative time] 2.1 (EXT) 2.0 - 3.0 UA DIP, URINE (POC)on 2021 BILIRUBIN UA (POCT) Negative Negative [facility] CLARITY UA (POCT) Clear [facility] COLOR UA (POCT) Yellow GLUCOSE UA (POCT) Negative Negative mg/dL HEMOGLOBIN/BLOOD UA (POCT) Trace-lysed Abnormal Negative KETONE UA (POCT) Negative Negative mg/dL LEUKOCYTES UA (POCT) Small Abnormal Negative [facility] NITRITE UA (POCT) Positive Abnormal Negative [facility] PH UA (POCT) 5.5 4.5 - 8.0 Protein Ql (U) 100 mg/dL Abnormal Negative mg/dL SPECIFIC GRAVITY UA (POCT) 1.020 1.005 - 1.030 UROBILINOGEN UA (POCT) 0.2 E.U./dL Malaika l E.U./dL Glucose Glucometer (dC) [M ass/Vol]on 08-21-2021 Glucose [Mass/Vol] 102 mg/dL 74-106 [facility] Work Phone: Comment on above: MANAGEMENT OF PATIEN T CARE PER NURSING PROTOCOL INR in Blood by Coagulation assayon 08-21-2021 INR Coag (Bld) [Relative time] 1.2 {INR} [facility] Work Phone: Laboratory - Coagulationon 0 08-21-2021 PT Coag (PPP) [Time] 14.9 s 11.7-14.9 [facility] Work Phone: Absolute lymphocyte counton 08-20-2021 Lymphocytes Auto (Unsp spec) [#/Vol] 0.77 10*3/uL 0.83-4.51 [facility] Work Phone: Basophil percentageon 2021 Basophils/100 WBC (Bld) 0.8 % 0-1 [facility] Work Phone: Bilirubin [Mass/Vol] 0.70 mg/dL 0.20-1.00 [facility] Work Phone: Comment on above: For patients on eltr ombopag therapy, use of Dimension [place] TBIL is not recommended. Chloride [Moles/Vol] 107 mmol/L 98-107 [facility] Work Phone: Eosinophils/100 WBC (Bld) 2.2 % 0-5 [facility] Work Phone: Glucose [Mass/Vol] 99 mg/dL 74-106 [facility] Work Phone: Neutrophils (Bld) [#/Vol] 4.9 10*3/uL 2.0-7.7 [facility] Work Phone: Neutrophils/100 WBC (Bld) 77.2 % 47-70 [facility] Work Phone: Potassium [Moles/Vol] 3.7 mmol/L 3.5-5.1 [facility] Work Phone: Protein [Mass/Vol] 6.2 g/dL 6.4-8.2 [facility] Work Phone: Sodium [Moles/Vol] 139 mmol/L 136-145 [facility] Work Phone: WBC (Bld) [#/Vol] 6.3 10*3/uL 4.4-11.0 [facility]: [phone] Blood erythrocytes count (nu mber/volume)on 08-20-2021 RBC (Bld) [#/Vol] 3.72 10*6/uL 4.6-6.2 [facility] Work [facility]: [phone] Blood hemoglobin measurement (mass/volume)on 08-20-2021 Hemoglobin (Bld) [Mass/Vol] 7.8 g/dL 13.0-16.5 [facility] Work Phone: [phone] Blood lymphocytes/100 leukoc yteson 08-20-2021 Lymphocytes/100 WBC (Bld) 12.2 % 19-41 [facility] Work Phone: [phone] Blood monocytes/100 leukocyt eson 08-20-2021 Monocytes/100 WBC (Bld) 6.8 % 0-10 [facility] Work Phone: [phone] Blood platelet mean volumeon 08-20-2021 Platelet mean volume (Bld) [Entitic vol] 9.7 fL 6.2-12.0 [facility] Work Phone: Determination of erythrocyte mean corpuscular volume (MCV)on 08-20-2021 MCV (RBC) [Entitic vol] 72.8 fL 80-94 [facility] Work Phone: Hematocrit Auto (Bld) [Volum e fraction]on 08-20-2021 Hematocrit (Bld) [Volume fraction] 27.1 % 40-54 [facility] Work Phone: Laboratory - Chemistry and C hemistry - challengeon 08-20-2021 ALP [Catalytic activity/Vol] 224 U/L 45-117 [facility] Work Phone: [phone] ALT [Catalytic activity/Vol] 335 U/L 16-61 [facility] Work Phone: [phone] CO2 [Moles/Vol] 27.0 mmol/L 21.0-32.0 [facility] Work Phone: Globulin (S) [Mass/Vol] 3.5 g/dL 2.2-4.2 [facility] Work Phone: [phone] Urea nitrogen/Creatinine [Mass ratio] 11.9 mg/mg 10-20 [facility] Work Phone: [phone] Laboratory - Hematology and Cell countson 08-20-2021 Erythrocyte distribution width (RBC) [Entitic vol] 50.8 fL 35.1-43.9 [facility] Work Phone: [phone] Erythrocyte distribution width (RBC) [Ratio] 19.5 % 11.6-14.6 [facility] Work Phone: [phone] Immature granulocytes/100 WBC (Bld) 0.800 % 0.0-0.9 [facility] Work Phone: [phone] Comment on above: IG% - Immature Granu locytes (promyelocytes, myelocytes and metamyelocytes) > 1% indicates that a LEFT SHIFT is Present. MCH (RBC) [Entitic mass] 21.0 pg 27.0-32.0 [facility] Work Phone: [phone] Nucleated RBC/100 WBC (Bld) [Ratio] 0 % 0-5 [facility] Work Phone: [phone] MCHC Auto (RBC) [Mass/Vol]on 08-20-2021 MCHC (RBC) [Mass/Vol] 28.8 g/dL 32-36 [facility] Work Phone: [phone] Panel Informationon 08-20 Estimated Creatinine Clearance Calc 63.96 ml/min [facility] Work Phone: [phone] Estimated GFR (MDRD) Amer 93 mL/min >60 [facility] Work Phone: [phone] Comment on above: GFR Calc Estimated GFR (MDRD) Non-Af Amer 77 mL/min >60 [facility] Work Phone: [phone] Comment on above: Non- GFR Calc Platelets bldon 08-20-2021 Platelets (Bld) [#/Vol] 409 10*3/uL 150-450 [facility] Work Phone: [phone] Serum or plasma albumin luis urement (mass/volume)on 08-20-2021 Albumin [Mass/Vol] 2.7 g/dL 3.2-5.0 [facility] Work Phone: [phone] Serum or plasma albumin/glob ulin mass ratioon 08-20-2021 Albumin/Globulin [Mass ratio] 0.8 {ratio} 0.9-2.4 [facility] Work Phone: Serum or plasma calcium luis urement (mass/volume)on 08-20-2021 Calcium [Mass/Vol] 7.9 mg/dL 8.5-10.1 [facility] Work Phone: Serum or plasma creatinine m easurement (mass/volume)on 08-20-2021 Creatinine [Mass/Vol] 1.01 mg/dL 0.70-1.30 [facility] Work Phone: Comment on above: The validity of the calculated GFR & GFRAA in patients over 70 years has not been determined. Clinical correlation is essential. Serum or plasma urea nitroge n measurement (mass/volume)on 08-20-2021 Urea nitrogen [Mass/Vol] 12 mg/dL 7-18 [facility] Work Phone: [phone] Thin prep Papanicolaou smear with manual screeningon 08-20-2021 Thin prep Papanicolaou smear with manual screening 150 U/L 15-37 [facility] Work Phone: Thin prep Papanicolaou smear with manual screening 5 5-15 [facility] Work Phone: [phone] Laboratory - Coagulationon 0 08-19-2021 aPTT Coag (Bld) [Time] 37.1 s 24.1-36.2 [facility] Work Phone: No Panel Informationon 08-19 Troponin I High Sensitivity 15 pg/mL 3.0-78.0 [facility] Work Phone: Comment on above: Please Note: New [place] t Units and Gender Specific Reference Ranges. For more information see Policy Stat Procedure [place] High Sensitivity Troponin (TNIH) and attachments. Whole blood hemoglobin A1c/t otal hemoglobin ratio (mass fraction)on 08-19-2021 HbA1c (Bld) [Mass fraction] 6.0 % 3.8-5.6 [facility] Work Phone: Comment on above: Normal < 5.7 % Predi abetic 5.7 - 6.4 % Diabetic >or= 6.5 % Please note range changes. Blood manual differential co mment interpretation (narrative result)on 08-18-2021 Manual differential comment Ghassan (Bld) [Interp] SCANNED [facility] Work Phone: Comment on above: LYMPHOPENIA NOTED Direct bilirubinon Bilirubin.direct [Mass/Vol] 0.89 mg/dL 0.00-0.30 [facility] Work Phone: Laboratory - Chemistry and C hemistry - challengeon 08-18-2021 Lipase [Catalytic activity/Vol] 134 U/L 73-393 [facility] Work Phone: Absolute lymphocyte counton 08-12-2021 Lymphocytes Auto (Unsp spec) [#/Vol] 0.44 10*3/uL 0.83-4.51 [facility] Work Phone: Basophil percentageon 2021 Basophils/100 WBC (Bld) 0.6 % 0-1 [facility] Work Phone: Bilirubin [Mass/Vol] 0.30 mg/dL 0.20-1.00 [facility] Work Phone: Comment on above: For patients on eltr ombopag therapy, use of Dimension [place] TBIL is not recommended. Chloride [Moles/Vol] 101 mmol/L 98-107 [facility] Work Phone: Eosinophils/100 WBC (Bld) 0.0 % 0-5 [facility] Work Phone: Glucose [Mass/Vol] 162 mg/dL 74-106 [facility] Work Phone: Comment on above: Fasting Glucose resu lt greater than or equal to 126 mg/dL suggests DIABETES MELLITUS per A.D.A. criteria. Neutrophils (Bld) [#/Vol] 9.7 10*3/uL 2.0-7.7 [facility] Work Phone: Neutrophils/100 WBC (Bld) 93.3 % 47-70 [facility] Work Phone: Potassium [Moles/Vol] 3.8 mmol/L 3.5-5.1 [facility] Work [facility]: Protein [Mass/Vol] 8.1 g/dL 6.4-8.2 [facility] Work Phone: Sodium [Moles/Vol] 135 mmol/L 136-145 [facility] Work Phone: WBC (Bld) [#/Vol] 10.4 10*3/uL 4.4-11.0 [facility] Work Phone: Blood erythrocytes count (nu mber/volume)on 08-12-2021 RBC (Bld) [#/Vol] 4.84 10*6/uL 4.6-6.2 [facility] Work Phone: Blood hemoglobin measurement (mass/volume)on 08-12-2021 Hemoglobin (Bld) [Mass/Vol] 10.4 g/dL 13.0-16.5 [facility] Work Phone: Blood lymphocytes/100 leukoc yteson 08-12-2021 Lymphocytes/100 WBC (Bld) 4.2 % 19-41 [facility] Work Phone: Blood monocytes/100 leukocyt eson 08-12-2021 Monocytes/100 WBC (Bld) 1.4 % 0-10 [facility] Work Phone: Blood platelet mean volumeon 08-12-2021 Platelet mean volume (Bld) [Entitic vol] 10.3 fL 6.2-12.0 [facility] Work Phone: Determination of erythrocyte mean corpuscular volume (MCV)on 08-12-2021 MCV (RBC) [Entitic vol] 74.8 fL 80-94 [facility] Work Phone: Hematocrit Auto (Bld) [Volum e fraction]on 08-12-2021 Hematocrit (Bld) [Volume fraction] 36.2 % 40-54 [facility] Work Phone: INR in Blood by Coagulation assayon 08-12-2021 INR Coag (Bld) [Relative time] 2.1 {INR} [facility] Work Phone: Laboratory - Chemistry and C hemistry - challengeon 08-12-2021 ALP [Catalytic activity/Vol] 70 U/L 45-117 [facility] Work Phone: ALT [Catalytic activity/Vol] 19 U/L 16-61 [facility] Work Phone: CO2 [Moles/Vol] 26.0 mmol/L 21.0-32.0 [facility] Work Phone: Globulin (S) [Mass/Vol] 3.9 g/dL 2.2-4.2 [facility] Work Phone: Lipase [Catalytic activity/Vol] 46 U/L 73-393 [facility] Work Phone: Urea nitrogen/Creatinine [Mass ratio] 9.0 mg/mg 10-20 [facility] Work Phone: Laboratory - Coagulationon 0 08-12-2021 PT Coag (PPP) [Time] 23.1 s 11.7-14.9 [facility] Work Phone: Laboratory - Hematology and Cell countson 08-12-2021 Anisocytosis Ql (Bld) 1+ [facility] Work Phone: Erythrocyte distribution width (RBC) [Entitic vol] 50.2 fL 35.1-43.9 [facility] Work Phone: Erythrocyte distribution width (RBC) [Ratio] 18.7 % 11.6-14.6 [facility] Work Phone: Immature granulocytes/100 WBC (Bld) 0.500 % 0.0-0.9 [facility] Work Phone: Comment on above: IG% - Immature Granu locytes (promyelocytes, myelocytes and metamyelocytes) > 1% indicates that a LEFT SHIFT is Present. MCH (RBC) [Entitic mass] 21.5 pg 27.0-32.0 [facility] Work Phone: Nucleated RBC/100 WBC (Bld) [Ratio] 0 % 0-5 [facility] Work Phone: [phone] MCHC Auto (RBC) [Mass/Vol]on 08-12-2021 MCHC (RBC) [Mass/Vol] 28.7 g/dL 32-36 [facility] Work Phone: No Panel Informationon 08-12 Estimated Creatinine Clearance Calc 58.20 ml/min [facility] Work Phone: Estimated GFR (MDRD) Amer 84 mL/min >60 [facility] Work Phone: Comment on above: GFR Calc Estimated GFR (MDRD) Non-Af Amer 69 mL/min >60 [facility] Work Phone: Comment on above: Non- GFR Calc Platelets bldon 08-12-2021 Platelets (Bld) [#/Vol] 401 10*3/uL 150-450 [facility] Work Phone: Serum or plasma albumin luis urement (mass/volume)on 08-12-2021 Albumin [Mass/Vol] 4.2 g/dL 3.2-5.0 [facility] Work Phone: [phone] Serum or plasma albumin/glob ulin mass ratioon 08-12-2021 Albumin/Globulin [Mass ratio] 1.1 {ratio} 0.9-2.4 [facility] Work Phone: [phone] Serum or plasma calcium luis urement (mass/volume)on 08-12-2021 Calcium [Mass/Vol] 9.4 mg/dL 8.5-10.1 [facility] Work Phone: [phone] Serum or plasma creatinine m easurement (mass/volume)on 08-12-2021 Creatinine [Mass/Vol] 1.11 mg/dL 0.70-1.30 [facility] Work Phone: Comment on above: The validity of the calculated GFR & GFRAA in patients over 70 years has not been determined. Clinical correlation is essential. Serum or plasma urea nitroge n measurement (mass/volume)on 08-12-2021 Urea nitrogen [Mass/Vol] 10 mg/dL 7-18 [facility] Work Phone: Thin prep Papanicolaou smear with manual screeningon 08-12-2021 Thin prep Papanicolaou smear with manual screening 1+ [facility] Work Phone: Thin prep Papanicolaou smear with manual screening 15 U/L 15-37 [facility] Work Phone: Thin prep Papanicolaou smear with manual screening 8 5-15 [facility] Work Phone: CNCOon 02-11-2021 CNCO Letter Text Normal [facility] CNPNon 02-11-2021 CNPN Telephone (SPAGWO) PEDRO PABLO SIERRA ([id number]) 1950 M Date Time Provider Department 02/11/21 [...] [J43.9] - COMPOUNDED PRESCRIPTION Aerosol supplies Dx:J44.1 NPI#[id number] - ipratropium-albuterol (DUONEB) 0.5 mg-3 mg(2.5 mg [...] AND FOLLOW-UP (more content not included)... Normal [facility] XR Femur - left AP and Later lonny 11-11-2020 IMPRESSION: 1. No radiographic evidence of acute osseous abnormality. 2. Atherosclerotic disease. Tube Sizer Operator: SHANELL Transcribe Date/Time: Nov 11 2020 10:50A Dictated by : RONALD COLUNGA MD This examination was interpreted and the report reviewed and electronically signed by: RONALD COLUNGA MD on Nov 11 2020 10:53AM [facility] DIVISION OF RADIOLOGY * [...] of acute osseous abnormality. 2. Atherosclerotic disease. Tube Sizer Operator: SHANELL Transcribe Date/Time: Nov 11 2020 10:50A Dictated by : RONALD COLUNGA MD This examination was interpreted and the report reviewed and electronically signed by: RONALD COLUNGA MD on Nov 11 2020 10:53AM EST Radiology Study observation (narrative) [facility] XR Femur - left AP and Later alOrdered By: [facility] Provider on 11-11-2020 CBC and Differentialon 04-10 Abs Baso 0.10 k/uL Normal <0.11 [facility] Abs Addison 0.44 k/uL Normal <0.87 [facility] Abs Neut 4.50 k/uL Normal 1.45-7.50 [facility] Absolute nRBC <0.01 Normal <0.01 [facility] Basophils/100 WBC (Bld) 1.4 % Normal [facility] DTYPE Auto Diff Normal [facility] Eosinophils (Bld) [#/Vol] 0.06 10*3/uL Normal <0.46 [facility] Eosinophils/100 WBC (Bld) 0.9 % Normal [facility] Erythrocyte distribution width (RBC) [Ratio] 21.0 % High 11.5-15.0 [facility] Hematocrit (Bld) [Volume fraction] 39.7 % Normal 39.0-51.0 [facility] Hemoglobin (Bld) [Mass/Vol] 11.3 g/dL Low 13.0-17.0 [facility] Lymphocytes (Bld) [#/Vol] 1.81 10*3/uL Normal 1.00-4.00 [facility] Lymphocytes/100 WBC (Bld) 26.2 % Normal [facility] MCH (RBC) [Entitic mass] 21.6 pG Low 26.0-34.0 [facility] MCHC (RBC) [Mass/Vol] 28.5 g/dL Low 30.5-36.0 [facility] MCV (RBC) [Entitic vol] 76.1 fL Low 80.0-100.0 [facility] Monocytes/100 WBC (Bld) 6.4 % Normal [facility] Neutrophils/100 WBC (Bld) 65.1 % Normal [facility] NRBCs 0.0 /100 WBC Normal 0 [facility] Platelet mean volume (Bld) [Entitic vol] 9.9 fL Normal 9.0-12.7 [facility] Platelets (Bld) [#/Vol] 302 10*3/uL Normal 150-400 [facility] RBC (Bld) [#/Vol] 5.22 10*6/uL Normal 4.20-6.00 [facility] WBC (Bld) [#/Vol] 6.91 10*3/uL Normal 3.70-11.[address] [facility] [address] BRAIN WO IVCONon 04-10-20 CT BRAIN WO IVCON * * *Final Report* * * DATE OF EXAM: Apr 10 2020 3:59PM [facility] 0504 - CT BRAIN WO IVCON [...] base and imaged soft tissues are unremarkable. White Sugar Boiler (topogram) images: No additional findings. IMPRESSION: NO CT EVIDENCE OF ACUTE INTRACRANIAL PROCESS. Tube Sizer Operator: SHANELL Transcribe Date/Time: Apr 10 2020 4:01P Dictated by : REBECCA BRYAN MD This examination was interpreted and the report reviewed and electronically signed by: REBECCA BRYAN MD on Apr 10 2020 4:04PM EST [id number] Normal [facility] Comp Metabolic Panelon 04-10 Albumin [Mass/Vol] 5.2 g/dL High 3.9-4.9 [facility] ALP [Catalytic activity/Vol] 65 U/L Normal 38-113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 Therapy (PT/OT/Speech/Resp) Filed: 10/13/2019 1:35 PM Note Text: Physical Therapy Treatment SERVICE DATE: 10/13/2019 SERVICE TIME: 1235 to 1300 ROOM: [id number] Recommended Discharge Disposition: Home PT Anticipated Discharge [...] ness on feet Interventions Provided: Gait Training (00438) Gait Training (93399) Treatment Minutes: 25 2 units Skilled Intervention(s): [...] Consult : PVD s/p L LE redo HIDE HOUSE SUPERVISOR endarterectomy, L profundoplasty, iliac stenting on 10/08/19 Relevant Past Medical History: S/p L femoral endarterectomy/aoroili ac stenting Patient Report: Pt agreeable to participate in therapy session Home Environment Patient Lives With: Self/Alone Assistance Available: radio time buyer Entry To Home: Stairs;Other: See Comment(stair lift) [...] SIGNATURE: Shakir Coello PT PATIENT NAME: Pedro Pabol Sierra DATE: October 13, 2019 TIME: 1:34 PM Normal [facility] Basic Metabolic Panlon 10-11 Anion gap [Moles/Vol] 11 mmol/L Normal 9-18 [facility] Comment on above: Performed By: #### C BC, PT, BMP ####[place] [phone] Calcium [Mass/Vol] 8.1 mg/dL Low 8.5-10.5 [facility] Comment on above: Performed By: #### C BC, PT, BMP ####[place] [phone] Chloride [Moles/Vol] 98 mmol/L Normal 98-110 [facility] Comment on above: Performed By: #### C BC, PT, BMP ####[place] [phone] CO2 [Moles/Vol] 26 mmol/L Normal 23-32 [facility] Comment on above: Performed By: #### C BC, PT, BMP ####[place] [phone] Creatinine [Mass/Vol] 0.64 mg/dL Low 0.70-1.40 [facility] Comment on above: Performed By: #### C BC, PT, BMP ####[place] [phone] eGFR- Amer. >60 Normal >60 [facility] Comment on above: Performed By: #### C BC, PT, BMP ####[place] [phone] GFR/1.73 sq M predicted among non-blacks MDRD (S/P/Bld) [Vol rate/Area] mL/min/{1.73_m2} Normal >60 [facility] Comment on above: Performed By: #### C BC, PT, BMP ####[place] [phone] Glucose [Mass/Vol] 151 mg/dL High 65-100 [facility] Comment on above: Performed By: #### C BC, PT, BMP ####[place] [id number] [place] [phone] Potassium [Moles/Vol] 3.6 mmol/L Normal 3.5-5.0 [facility] Comment on above: Performed By: #### C BC, PT, BMP ####[place] [phone] Sodium [Moles/Vol] 135 mmol/L Normal 135-146 [facility] Comment on above: Performed By: #### C BC, PT, BMP ####[place] [phone] Urea nitrogen [Mass/Vol] 8 mg/dL Low 10-25 [facility] Comment on above: Performed By: #### C BC, PT, BMP ####[place] [phone] CASE MANAGEMon 10-12-2019 CASE MANAGEM HNO ID: [id number] Author: Carly Hutchison) SEYMOUR Man Service: Case Management Author Type: Registered Nurse Type: Care Mgt Progress Note Filed: 10/12/2019 12:39 PM Note Text: CARE MANAGEMENT PROGRESS NOTE SERVICE DATE: 10/12/2019 SERVICE TIME: 1230 LOS: 4 days Needs Prior to Discharge: To Be Determined Clinicals faxed to [facility] SIGNATURE: Carly Man RN,BSN PATIENT NAME: Pedro Pablo Sierra DATE: October 12, 2019 TIME: 12:38 PM PAGER/CONTACT #: [phone] [facility] CASE MANAGEM HNO ID: [id number] Author: Carly Hutchison) Donovan RN Service: Case [...] 12, 2019 TIME: 10:14 AM PAGER/CONTACT #: [phone] Normal [facility] CBCon 10-12-2019 Erythrocyte distribution width (RBC) [Ratio] 16.0 % High 11.5-15.0 [facility] Comment on above: Performed By: #### C BC, PT, BMP ####[place] [phone] Hematocrit (Bld) [Volume fraction] 29.3 % Low 39.0-51.0 [facility] Comment on above: Performed By: #### C LARRY, PT, BMP ####[place] [phone] Hemoglobin (Bld) [Mass/Vol] 9.7 g/dL Low 13.0-17.0 [facility] Comment on above: Performed By: #### C BC, PT, BMP ####[place] [phone] MCH (RBC) [Entitic mass] 30.3 pG Normal 26.0-34.0 [facility] Comment on above: Performed By: #### C BC, PT, BMP ####[place] [phone] MCHC (RBC) [Mass/Vol] 33.1 g/dL Normal 30.5-36.0 [facility] Comment on above: Performed By: #### C BC, PT, BMP ####[address] [phone] MCV (RBC) [Entitic vol] 91.6 fL Normal 80.0-100.0 [facility] Comment on above: Performed By: #### C BC, PT, BMP ####[address] [phone] Platelet mean volume (Bld) [Entitic vol] 10.2 fL Normal 9.0-12.7 [facility] Comment on above: Performed By: #### C BC, PT, BMP ####[place] [phone] Platelets (Bld) [#/Vol] 173 10*3/uL Normal 150-400 [facility] Comment on above: Performed By: #### C BC, PT, BMP ####[place] [phone] RBC (Bld) [#/Vol] 3.20 10*6/uL Low 4.20-6.00 [facility] Comment on above: Performed By: #### C BC, PT, BMP ####[place] [phone] WBC (Bld) [#/Vol] 5.98 10*3/uL Normal 3.70-11.00 [facility] Comment on above: Performed By: #### C BC, PT, BMP ####[place] [phone] NURSING PROGon 10-12-2019 NURSING PROG HNO ID: [id number] Author: Daphney (Rn) SEYMOUR Baron Service: Nursing Author Type: Registered Nurse Type: Nursing Progress Note Filed: 10/12/2019 4:25 PM Note Text: Nursing Progress Note Patient Name: Pedro Pablo Sierra Patient Location: [facility]/ __ Daily Note: 0900: Pt up to chair with 2 assist and walker. Pt states left leg is painful, but able to bear weight. Pt does not want to be discharged at this time, PT/OT recommending skilled, pt refusing and wanting home care around the clock. Pt requesting robitussin for cough, given at 0841 per order. 1130: Pt assisted to bathroom with director school of nursing and walker. Pt was able to ambulate from bathroom to bed using walker with standby assist. 1610: Incision to left groin oozing serosang drainage. Gown saturated and needed to be changed. Abd and paper tape applied to cover and collect drainage. Pt c/o pain to left groin, 01/26. Medicated with 10mg po oxycodone. This note was completed by: Daphney Baron RN [facility] PROGRESSon 10-12-2019 PROGRESS HNO ID: [id number] Author: Elly (Binu Brown Service: Vascular Surgery [...] patient (fl,oh) 10/08/19 1645 pneumatic compression stockings (oh,oh) VTE Prophylaxis: on AC ALLERGIES No Known [...] w/ rest pain and is s/p L HIDE HOUSE SUPERVISOR EA w/ bovine patch, L RADHA and EIA thrombectomy, L CI and EI stenting 10/07 c/b thrombosis s/p : EIA to HIDE HOUSE SUPERVISOR bypass graft w. Ringed PTFE 10/09. Plan: [...] CRISPIN stenting on 10/23, UC, CAD previous AL, DM, HTN, HLD, COPD Overall Course: 63 [...] and weekends, please contact the General Surgery Sports Attorney pager, [phone] Normal [facility] Protimeon 10-12-2019 PT Coag (PPP) [Time] 15.6 s High 9.7-13.0 [facility] Comment on above: Performed By: #### C BC, PT, BMP ####[facility] [place], [place] [phone] PT Coag (PPP) [Time] 1.5 s High 0.9-1.3 [facility] Comment on above: Result Comment: Teri min K Antagonist (VKA) Therapeutic Range: INR 2 to 3 (Target INR of 2.5) Note: For patients treated with VKA drugs, such as warfarin, the [employer] 2012 Guideline recommends [...] Performed By: #### C LARRY, PT, BMP ####[facility] [place], [place] [phone] ANES POSTPROC EVALon 020 ANES POSTPROC EVAL HNO ID: [id number] Author: Cassie Zavala Service: ? Author Type: [...] October 11, 2019 TIME: 7:41 AM CSN: [id number] Normal [facility] Basic Metabolic Panlon 10-10 Anion gap [Moles/Vol] 9 mmol/L Normal 9-18 [facility] Comment on above: Performed By: #### C LARRY, BMP, MG1, PHOS ####[facility] [place], [place] [phone] Calcium [Mass/Vol] 7.7 mg/dL Low 8.5-10.5 [facility] Comment on above: Performed By: #### C BC, BMP, MG1, PHOS ####[phone] Chloride [Moles/Vol] 101 mmol/L Normal 98-110 [facility] Comment on above: Performed By: #### C BC, BMP, MG1, PHOS ####[place] [phone] CO2 [Moles/Vol] 26 mmol/L Normal 23-32 [facility] Comment on above: Performed By: #### C BC, BMP, MG1, PHOS ####[place] [phone] Creatinine [Mass/Vol] 0.63 mg/dL Low 0.70-1.40 [facility] Comment on above: Performed By: #### C BC, BMP, MG1, PHOS ####[place] [phone] eGFR- Amer. >60 Normal >60 [facility] Comment on above: Performed By: #### C BC, BMP, MG1, PHOS ####[place] [phone] GFR/1.73 sq M predicted among non-blacks MDRD (S/P/Bld) [Vol rate/Area] mL/min/{1.73_m2} Normal >60 [facility] Comment on above: Performed By: #### C BC, BMP, MG1, PHOS ####[place] [phone] Glucose [Mass/Vol] 107 mg/dL High 65-100 [facility] Comment on above: Performed By: #### C BC, BMP, MG1, PHOS ####[place] [phone] Potassium [Moles/Vol] 3.9 mmol/L Normal 3.5-5.0 [facility] Comment on above: Performed By: #### C BC, BMP, MG1, PHOS ####[facility] [place], [place] [phone] Sodium [Moles/Vol] 136 mmol/L Normal 135-146 [facility] Comment on above: Performed By: #### C BC, BMP, MG1, PHOS ####[place] [address] [place], [place] [phone] Urea nitrogen [Mass/Vol] 8 mg/dL Low 10-25 [facility] Comment on above: Performed By: #### C BC, BMP, MG1, PHOS ####[place] [address] [place], [place] [phone] CASE MGT INIT ASSESon 2019 CASE MGT INIT [facility] HNO ID: [id number] Author: Bri Hutchison) SEYMOUR Swann Service: Case Management Author Type: Registered Nurse Type: Care Mgt Initial Assessment Filed: 10/11/2019 2:43 PM Note Text: CARE MANAGEMENT PROGRESS NOTE SERVICE DATE: 10/11/2019 SERVICE TIME: 2:38 PM LOS: 3 days [place] of Choice Given: Yes Level of Care Discussed: Home Care Financial Disclosure Provided: Yes Financial Disclosure Comments: discussed Needs Prior to Discharge: To Be Determined;Home Care Order CM discussed with pt discharge planning. pt has his home set up for his needs with elevator and refusing rehab at this time due to Covid 19 risks. Pt was active with [facility] for nurse visit and prefers to continue. CM made referral via ascripts, pt will need F2F for PT/OT/SN at d/c. CM flagged weekend CM staff for potential d/c this weekend and will need AVS faxed at d/c to [phone]. CM to follow as needed. SIGNATURE: Bri Swann RN,BSN PATIENT NAME: Pedro Pablo Sierra DATE: October 11, 2019 TIME: 2:38 PM PAGER/CONTACT #: [phone] Normal [facility] CBCon 10-11-2019 Erythrocyte distribution width (RBC) [Ratio] 15.8 % High 11.5-15.0 [facility] Comment on above: Performed By: #### C BC, BMP, MG1, PHOS ####[place] [phone] Hematocrit (Bld) [Volume fraction] 27.2 % Low 39.0-51.0 [facility] Comment on above: Performed By: #### C BC, BMP, MG1, PHOS ####[place] [phone] Hemoglobin (Bld) [Mass/Vol] 8.9 g/dL Low 13.0-17.0 [facility] Comment on above: Performed By: #### C BC, BMP, MG1, PHOS ####[place] [phone] MCH (RBC) [Entitic mass] 29.4 pG Normal 26.0-34.0 [facility] Comment on above: Performed By: #### C BC, BMP, MG1, PHOS ####[place] [phone] MCHC (RBC) [Mass/Vol] 32.7 g/dL Normal 30.5-36.0 [facility] Comment on above: Performed By: #### C BC, BMP, MG1, PHOS ####[place] [phone] MCV (RBC) [Entitic vol] 89.8 fL Normal 80.0-100.0 [facility] Comment on above: Performed By: #### C BC, BMP, MG1, PHOS ####[place] [phone] Platelet mean volume (Bld) [Entitic vol] 9.9 fL Normal 9.0-12.7 [facility] Comment on above: Performed By: #### C BC, BMP, MG1, PHOS ####[place] [phone] Platelets (Bld) [#/Vol] 140 10*3/uL Low 150-400 [facility] Comment on above: Performed By: #### C BC, BMP, MG1, PHOS ####[place] [id number] [place] [phone] RBC (Bld) [#/Vol] 3.03 10*6/uL Low 4.20-6.00 [facility] Comment on above: Performed By: #### C BC, BMP, MG1, PHOS ####[place] [id number] [place] [phone] WBC (Bld) [#/Vol] 5.78 10*3/uL Normal 3.70-11.00 [facility] Comment on above: Performed By: #### C BC, BMP, MG1, PHOS ####[place] [phone] Magnesiumon 10-11-2019 Magnesium [Mass/Vol] 2.0 mg/dL Normal 1.7-2.6 [facility] Comment on above: Performed By: #### C BC, BMP, MG1, PHOS ####[place] [phone] NURSING PROGon 10-11-2019 NURSING PROG HNO ID: [id number] Author: Briana (Rn) SEYMOUR Hardy Service: ? Author Type: Registered Nurse Type: Nursing Progress Note Filed: 10/11/2019 2:37 PM Note Text: Nursing Progress Note Patient Name: Pedro Pablo Sierra Patient Location: [id number] Daily Note: 0700. Bedside report received from shift mgr RN. Patient is resting comfortably in bed [...] note was completed by: Briana Hardy RN [facility] PROGRESSon 10-11-2019 PROGRESS HNO ID: [id number] Author: Noman Fish MD Service: Vascular Surgery [...] interval not displayed. Assessment/Plan Impression: Pedro Pablo Sirera is a 69 year old White male [...] CRISPIN stenting on 10/23, UC, CAD previous AL, DM, HTN, HLD, COPD Overall Course: 64 [...] TIME: 7:24 AM PAGER/CONTACT #: See Below [phone] For questions Monday through Monday 6am to 6pm please page Red Team [phone] For questions during nights (6pm - 6am) and weekends, please contact the General Surgery Sports Attorney pager, [phone] [facility] PROGRESS HNO ID: [id number] Author: Rashawn Huntley Service: Critical Care Author [...] CURRENT MEDICATIONS: Medications reviewed. Please refer to [employer] for list of inpatient medications. Current Facility-Administered [...] INTRAVENOUS q 2 H PRN Elly (Res) [facility] 25 mcg at 10/11/19 0648 - hyoscyamine [...] tab(s) (PLAVIX) 75 mg ORAL DAILY Roman (Chief Of Staff) Heinly 75 mg at 10/10/19 0817 - polyethylene glycol 3350 17 g packet (MIRALAX, GLYCOLAX) 17 g ORAL DAILY PRN Elly (Res) [place] - docusate sodium 100 mg cap(s) (COLACE) 100 mg ORAL BID Elly (Res) [place] 100 mg at 10/10/192202 - budesonide 0.25 mg/2 mL 0.25 mg (PULMICORT) 0.25 mg INHALATION BID Elly (Res) [place] 0.25 mg at 10/10/192046 And - ipratropium-albuterol 3 mL nebulizer solution (DUONEB) 3 mL INHALATION QID Elly (Res) [place] 3 mL at 10/10/192046 - NaCl 0.9% [...] hospitalization are listed below. Plese refer to [facility] for a full listing of cultures obtained during this hospitalization. ? N/A DIAGNOSTIC TESTS: The following diagnostic tests/findings were reviewed: ? Most recent labs and imaging results. MOST RECENT CXR FINDINGS: Bibasilar atelectasis. OPERATIVE PROCEDURE(S): Date of surgery: 10/08/19 Procedure: Left common HIDE HOUSE SUPERVISOR endarterectomy with bovine path Left profundoplasty Left iliac stenting X4 (I-Cast X2, Jessica X2) Multiple angiograms with angioplasty Surgeon: Dr. May Date of surgery: 10/10/19 Procedure: Left EIA to HIDE HOUSE SUPERVISOR bypass with 7mm ringed PTFE end to end proximally to the previously placed bovine patch end to side distally. Completion angiogram Retrograde open RADHA angioplasty with 8 x 80 mustang balloon. Open thrombectomy L iliac artery by leg incision. Surgeon: Dr. May Assessment/Plan 69 year old male with CAD (EF 60% on 09/12/19), AL in 2005, HTN, HLD, COPD, PJ(on 2L O2 nocturnal), DM, GERD, diverticulosis, anxiety, depression, lupus anticoagulant disorder on Coumadin, chronic low back pain, aortoiliac and left ileofemoral PAD s/p multiple interventions including left femoral endarterectomy/aortoil iac stenting in 10/2013 who underwent a Redo left HIDE HOUSE SUPERVISOR endarterectomy, left profundoplasty, left iliac stenting with Dr. May on 10/08/19. She is admitted to SICU post-operatively for neurovascular checks and close hemodynamic monitoring. Developed L HIDE HOUSE SUPERVISOR occlusion POD2 and taken back to OR on 10/10/19 for left groin hematoma evacuation, left EIA to HIDE HOUSE SUPERVISOR PTFE bypass, left liac thrombectomy. Transferred to [...] -Tubes: Clark -Prophylaxis: SCDs -Dispo: Transfer to [facility] Medication and Non-Pharmacologic VTE Prophylaxis/Anticoagul ants Anticoagulant AND Antiplatelet Medications (From admission, onward) Start Dose Route Frequency Ordered Stop 10/10/19 0900 clopidogrel 75 mg tab(s) (PLAVIX) 75 mg ORAL DAILY 10/09/19 1043 -- 10/08/19 1700 activity - mobilize patient ([place]) 10/08/19 1645 pneumatic compression stockings ([place] VTE Prophylaxis: Contraindicated elevated risk of bleeding To be seen and discussed on rounds with SICU staff: Dr. Huntley ICU Checklist --------- --- VTE Prophylaxis: SIGNATURE: Misael Jeter MD PATIENT NAME: Pedro Pablo Sierra DATE: October 11, 2019 TIME: 6:40 AM PAGER/CONTACT #: [phone] [facility] STAFF PHYSICIAN NOTE OF PERSONAL INVOLVEMENT IN [...] HTN GERD ? Procedure/Surgeon 10/08/19 S/P L HIDE HOUSE SUPERVISOR endarterectomy with bovine path, profundoplasty and iliac [...] DO 11:08 AM October 11, 2019 Normal [facility] Phosphoruson 10-11-2019 Phosphate [Mass/Vol] 1.9 mg/dL Low 2.5-4.5 [facility] Comment on above: Performed By: #### C BC, BMP, MG1, PHOS ####[place] [id number] [place], [place] [phone] Protimeon 10-11-2019 PT Coag (PPP) [Time] 10.9 s Normal 9.7-13.0 [facility] Comment on above: Performed By: #### P T ####[place] [id number] [place], [place] [phone] PT Coag (PPP) [Time] 1.0 s Normal 0.9-1.3 [facility] Comment on above: Result Comment: Teri min K Antagonist (VKA) Therapeutic Range: INR 2 to 3 (Target INR of 2.5) Note: For patients treated with VKA drugs, such as warfarin, the [employer] 2012 Guideline recommends [...] Chest 2012, 141:7S-47S Gio KENNY et al. [facility] 2017, 70: 252-289 Performed By: #### P T ####[place] [id number] [place], [place] [phone] THERAPY NTon 10-11-2019 THERAPY NT HNO ID: [id number] Author: Gini (Pt) Eugenia Melvin Service: Physical Therapy Author Type: Physical Therapist Type: Therapy (PT/OT/Speech/Resp) Filed: 10/11/2019 10:43 AM Note Text: Physical Therapy Treatment SERVICE DATE: 10/11/2019 SERVICE TIME: 0935 to 1020 ROOM: [place] [address] Recommended Discharge Disposition: Home PT Anticipated Discharge [...] Diagnosis: Reduced mobility-other Interventions Provided: Therapeutic Activity (12931);Therapeutic Exercise (79977);Gait Training (34842) Therapeutic Exercise (49617) Treatment Minutes: 15 1 unit Skilled Intervention(s): Instruction in therapeutic exercise supine, very gentle with Daisha GOOD. Edu on rationale of exercises. Therapeutic Activity (72330) Treatment Minutes: 20 1 unit Skilled Intervention(s): Instructed patient in supine to sit pushing with upper extremities to sit up Instructed patient in supine to and from sit pushing with upper extremities to sit up Instruction in sit to stand technique with proper hand placement and body positioning at edge of bed/chair Gait Training (44968) Treatment Minutes: 10 1 unit Skilled Intervention(s): Instruction in sequencing, gait pattern and Instruction in correction of gait deviations Total Timed Code Treatment Minutes: 45 Total Treatment Time (minutes): 45 SUBJECTIVE: Current Hospital Course: Chart reviewed and no significant medical updates relevant to therapy were noted Reason for Physical Therapy Consult : PVD s/p L LE redo HIDE HOUSE SUPERVISOR endarterectomy, L profundoplasty, iliac stenting on 10/08/19 Relevant Past Medical History: S/p L femoral endarterectomy/aoroili ac stenting Patient Report: My Left leg is incredibly sore right now, moving is going to have to be slow. (And it is.) Home Environment Patient Lives With: Self/Alone Assistance Available: radio time buyer Entry To Home: Stairs;Other: See Comment(stair lift) [...] DATE: October 11, 2019 TIME: 10:40 AM [facility] THERAPY NT HNO ID: [id number] Author: Caitlin Thomas Service: Occupational Therapy Author Type: Occupational Therapist Type: Therapy (PT/OT/Speech/Resp) Filed: 10/11/2019 6:48 AM Note Text: OCCUPATIONAL THERAPY MISSED VISIT SERVICE DATE: 10/11/2019 SERVICE TIME: 0647 to 0647 ROOM: [place] [address] Attempted Treatment. Patient not seen due to Incomplete Orders. Pt is currently on bedrest. Please update activity orders when medically appropriate for participation in Occupational Therapy treatment and out of bed mobility. Thank you. SIGNATURE: Caitlin Thomas OTR/L PATIENT NAME: Pedro Pablo Sierra DATE: October 11, 2019 TIME: 6:47 AM Normal [facility] ABG Complete Eval FOR SEFERINO Kauffman 10-10-2019 Base Excess 1 mmol/L Normal [facility] Comment on above: Result Comment: -3 t o 3 Performed By: #### A BGRTC ####[facility] [place], [place] [phone] Calcium [Mass/Vol] 1.29 mmol/L Normal 1.15-1.35 [facility] Comment on above: Performed By: #### A BGRTC ####[place] [phone] Carboxyhemoglobin,Art 1.0 % Normal <2.0 [facility] Comment on above: Performed By: #### A BGRTC ####[place] [phone] Chloride, Whole Bld FOR WEST USE ONLY 105 mmol/L Normal 98-107 [facility] Comment on above: Performed By: #### A BGRTC ####[place] [phone] CO2 [Moles/Vol] 27 mmol/L Normal 22.0-28.0 [facility] Comment on above: Performed By: #### A BGRTC ####[place] [phone] Glucose [Mass/Vol] 132 mg/dL High 65-100 [facility] Comment on above: Performed By: #### A BGRTC ####[place] [phone] HCO3 (Bld) [Moles/Vol] 26 mmol/L Normal 22-26 [facility] Comment on above: Performed By: #### A BGRTC ####[place] [phone] Hematocrit (Bld) [Volume fraction] 26.3 % Low 42.0-52.0 [facility] Comment on above: Performed By: #### A BGRTC ####[place] [phone] Hemoglobin (Bld) [Mass/Vol] 8.5 g/dL Low 14-18 [facility] Comment on above: Performed By: #### A BGRTC ####[place] [phone] Lactate [Moles/Vol] 1.5 mmol/L Normal 0.4-2.0 [facility] Comment on above: Performed By: #### A BGRTC ####[place] [phone] Methemoglobin 1.4 % Normal 0.4-1.5 [facility] Comment on above: Performed By: #### A BGRTC ####[place] [phone] O2 Administered 21.0 Normal [facility] Comment on above: Performed By: #### A BGRTC ####[place] [phone] Oxygen (Bld) [Partial pressure] 136 mm Hg High 80-100 [facility] Comment on above: Performed By: #### A BGRTC ####[place] [phone] Oxygen (Bld) [Partial pressure] 99 % High 90-98 [facility] Comment on above: Performed By: #### A BGRTC ####[place] [phone] Oxyhemoglobin, Art. 96 % Normal 94-100 [facility] Comment on above: Performed By: #### A BGRTC ####[place] [phone] pCO2 46 mm Hg Normal 35-48 [facility] Comment on above: Performed By: #### A BGRTC ####[place] [phone] pH (Bld) 7.37 [pH] Normal 7.35-7.45 [facility] Comment on above: Performed By: #### A BGRTC ####[phone] PO2FI FOR WEST USE ONLY 648 mmHG High 400-500 F [facility] Comment on above: Performed By: #### A BGRTC ####[place] [phone] Potassium [Moles/Vol] 3.9 mmol/L Normal 3.5-5.0 [facility] Comment on above: Performed By: #### A BGRTC ####[place] [phone] Sodium [Moles/Vol] 137 mmol/L Normal 135-145 [facility] Comment on above: Performed By: #### A BGRTC ####[place] [phone] Base Excess 2 mmol/L Normal [facility] Comment on above: Result Comment: -3 t o 3 Performed By: #### A BGRTC ####[place] [phone] Calcium [Mass/Vol] 1.09 mmol/L Low 1.15-1.35 [facility] Comment on above: Performed By: #### A BGRTC ####[place] [phone] Carboxyhemoglobin,Art 1.3 % Normal <2.0 [facility] Comment on above: Performed By: #### A BGRTC ####[place] [phone] Chloride, Whole Bld FOR WEST USE ONLY 106 mmol/L Normal 98-107 [facility] Comment on above: Performed By: #### A BGRTC ####[place] [phone] CO2 [Moles/Vol] 28 mmol/L Normal 22.0-28.0 [facility] Comment on above: Performed By: #### A BGRTC ####[place] [phone] Glucose [Mass/Vol] 129 mg/dL High 65-100 [facility] Comment on above: Performed By: #### A BGRTC ####[place] [phone] HCO3 (Bld) [Moles/Vol] 27 mmol/L High 22-26 [facility] Comment on above: Performed By: #### A BGRTC ####[place] [phone] Hematocrit (Bld) [Volume fraction] 24.6 % Low 42.0-52.0 [facility] Comment on above: Performed By: #### A BGRTC ####[place] [phone] Hemoglobin (Bld) [Mass/Vol] 7.9 g/dL Low 14-18 [facility] Comment on above: Performed By: #### A BGRTC ####[place] [phone] Lactate [Moles/Vol] 1.1 mmol/L Normal 0.4-2.0 [facility] Comment on above: Performed By: #### A BGRTC ####[place] [phone] Methemoglobin 1.2 % Normal 0.4-1.5 [facility] Comment on above: Performed By: #### A BGRTC ####[place] [phone] O2 Administered 21.0 Normal [facility] Comment on above: Performed By: #### A BGRTC ####[place] [phone] Oxygen (Bld) [Partial pressure] 164 mm Hg High 80-100 [facility] Comment on above: Performed By: #### A BGRTC ####[place] [phone] Oxygen (Bld) [Partial pressure] 99 % High 90-98 [facility] Comment on above: Performed By: #### A BGRTC ####[place] [phone] Oxyhemoglobin, Art. 97 % Normal 94-100 [facility] Comment on above: Performed By: #### A BGRTC ####[place] [phone] pCO2 44 mm Hg Normal 35-48 [facility] Comment on above: Performed By: #### A BGRTC ####[facility] [place] [phone] pH (Bld) 7.40 [pH] Normal 7.35-7.45 [facility] Comment on above: Performed By: #### A BGRTC ####[facility] [place] [phone] PO2FI FOR WEST USE ONLY 781 mmHG High 400-500 F [facility] Comment on above: Performed By: #### A BGRTC ####[facility] [place] [phone] Potassium [Moles/Vol] 3.6 mmol/L Normal 3.5-5.0 [facility] Comment on above: Performed By: #### A BGRTC ####[place] [id number] [place] [phone] Sodium [Moles/Vol] 137 mmol/L Normal 135-145 [facility] Comment on above: Performed By: #### A BGRTC ####[facility] [place] [phone] ALLIED HEALTHon 10-10-2019 ALLIED HEALTH HNO ID: [id number] Author: William Renee (Rt) Service: Radiology Author Type: Trimmer Tailer Type: Allied Health Filed: 10/10/2019 6:31 AM Note Text: Radiology Service Progress Note PATIENT NAME: Pedro Pbalo Sierra DATE OF SERVICE: October 10, 2019 TIME: 6:31 AM PATIENT IDENTITY VERIFICATION COMPLETED USING TWO (2) IDENTIFIERS: Name and Date of confirmed by patient verbally. PATIENT GENDER DATA: Male PATIENT RELEVANT IMPLANT DATA REVIEWED: Not Applicable RADIOLOGY DEPARTMENT: General X-ray: Exam(s) Completed: Chest X-Ray PERIPHERAL IV DATA: Not applicable SIGNED BY: RT Víctor October 10, 2019 6:31 AM [facility] ANES PRE-OPon 10-10-2019 ANES PRE-OP HNO ID: [id number] Author: Joey Sequeira Service: ? Author Type: [...] (+) Hypertension (+) PVD (peripheral vascular disease) ([facility]) (+) s/p left femoral endarterectomy/aortoil iac stenting 10/08/2019 (now with L HIDE HOUSE SUPERVISOR occlusion) PULMONARY (+) COPD (chronic obstructive pulmonary disease) ([facility]) (+) PJ (obstructive sleep apnea) ANESTHESIA (+) PJ (obstructive sleep apnea) NEURO-PSYCH (+) Headache GI (+) GERD (gastroesophageal reflux disease) Other (+) Anemia due to acute blood loss (Hgb 7.4 this AM; will order 2 units PRBCs) (+) Lupus anticoagulant disorder ([facility]) I - PHYSICAL EVALUATION AIRWAY Patient intubated: [...] (iso-osmotic) 100 mL (ANCEF) 2 g INTRAVENOUS Sports Attorney to OR - NaCl 0.9% iv infusion [...] movements. - COMPOUNDED PRESCRIPTION Aerosol supplies Dx:J44.1 NPI#[id number] - ipratropium-albuterol (DUONEB) 0.5 mg-3 mg(2.5 mg [...] October 10, 2019 TIME: 8:21 AM CSN: [id number] Normal [facility] APTTon 10-10-2019 aPTT Coag (Bld) [Time] 25.4 s Normal 23.0-32.4 [facility] Comment on above: Result Comment: Unfr [...] laboratory APTT reagent in use throughout the [facility]. Performed By: #### C BCDIF, PTT, FIBCT, PT ####[facility] [place], [place] [phone] aPTT Coag (Bld) [Time] 126.3 s High 23.0-32.4 [facility] Comment on above: Result Comment: Unfr [...] laboratory APTT reagent in use throughout the [facility]. Called to and read back by: Landry Quintana RN [facility] 10/10/19 Royce Mccormick Performed By: #### C BCDIF, BMP, MG1, PHOS, PTT, PT ####[facility] [place], [place] [phone] aPTT Coag (Bld) [Time] 44.1 s High 23.0-32.4 [facility] Comment on above: Result Comment: Unfr [...] laboratory APTT reagent in use throughout the [facility]. Performed By: #### P TT ####[place] [phone] Basic Metabolic Panlon 10-09 Anion gap [Moles/Vol] 11 mmol/L Normal 9-18 [facility] Comment on above: Performed By: #### C BCDIF, BMP, MG1, PHOS, PTT, PT ####[place] [phone] Calcium [Mass/Vol] 8.0 mg/dL Low 8.5-10.5 [facility] Comment on above: Performed By: #### C BCDIF, BMP, MG1, PHOS, PTT, PT ####[place] [phone] Chloride [Moles/Vol] 103 mmol/L Normal 98-110 [facility] Comment on above: Performed By: #### C BCDIF, BMP, MG1, PHOS, PTT, PT ####[place] [phone] CO2 [Moles/Vol] 24 mmol/L Normal 23-32 [facility] Comment on above: Performed By: #### C BCDIF, BMP, MG1, PHOS, PTT, PT ####[place] [phone] Creatinine [Mass/Vol] 0.68 mg/dL Low 0.70-1.40 [facility] Comment on above: Performed By: #### C BCDIF, BMP, MG1, PHOS, PTT, PT ####[place] [phone] eGFR- Amer. >60 Normal >60 [facility] Comment on above: Performed By: #### C BCDIF, BMP, MG1, PHOS, PTT, PT ####[place] [phone] GFR/1.73 sq M predicted among non-blacks MDRD (S/P/Bld) [Vol rate/Area] mL/min/{1.73_m2} Normal >60 [facility] Comment on above: Performed By: #### C BCDIF, BMP, MG1, PHOS, PTT, PT ####[place] [phone] Glucose [Mass/Vol] 127 mg/dL High 65-100 [facility] Comment on above: Performed By: #### C BCDIF, BMP, MG1, PHOS, PTT, PT ####[place] [phone] Potassium [Moles/Vol] 4.3 mmol/L Normal 3.5-5.0 [facility] Comment on above: Performed By: #### C BCDIF, BMP, MG1, PHOS, PTT, PT ####[place] [phone] Sodium [Moles/Vol] 138 mmol/L Normal 135-146 [facility] Comment on above: Performed By: #### C BCDIF, BMP, MG1, PHOS, PTT, PT ####[place] [phone] Urea nitrogen [Mass/Vol] 9 mg/dL Low 10-25 [facility] Comment on above: Performed By: #### C BCDIF, BMP, MG1, PHOS, PTT, PT ####[place] [phone] Anion gap [Moles/Vol] 8 mmol/L Low 9-18 [facility] Comment on above: Performed By: #### C BC, BMP, MG1, PHOS ####[place] [phone] Calcium [Mass/Vol] 7.9 mg/dL Low 8.5-10.5 [facility] Comment on above: Performed By: #### C BC, BMP, MG1, PHOS ####[place] [phone] Chloride [Moles/Vol] 101 mmol/L Normal 98-110 [facility] Comment on above: Performed By: #### C BC, BMP, MG1, PHOS ####[place] [phone] CO2 [Moles/Vol] 27 mmol/L Normal 23-32 [facility] Comment on above: Performed By: #### C BC, BMP, MG1, PHOS ####[place] [phone] Creatinine [Mass/Vol] 0.69 mg/dL Low 0.70-1.40 [facility] Comment on above: Performed By: #### C BC, BMP, MG1, PHOS ####[place] [phone] eGFR- Amer. >60 Normal >60 [facility] Comment on above: Performed By: #### C BC, BMP, MG1, PHOS ####[place] [phone] GFR/1.73 sq M predicted among non-blacks MDRD (S/P/Bld) [Vol rate/Area] mL/min/{1.73_m2} Normal >60 [facility] Comment on above: Performed By: #### C BC, BMP, MG1, PHOS ####[place] [phone] Glucose [Mass/Vol] 107 mg/dL High 65-100 [facility] Comment on above: Performed By: #### C BC, BMP, MG1, PHOS ####[place] [phone] Potassium [Moles/Vol] 3.8 mmol/L Normal 3.5-5.0 [facility] Comment on above: Performed By: #### C BC, BMP, MG1, PHOS ####[place] [phone] Sodium [Moles/Vol] 136 mmol/L Normal 135-146 [facility] Comment on above: Performed By: #### C BC, BMP, MG1, PHOS ####[phone] Urea nitrogen [Mass/Vol] 11 mg/dL Normal 10-25 [facility] Comment on above: Performed By: #### C BC, BMP, MG1, PHOS ####[phone] CASE MANAGEMon 10-10-2019 CASE MANAGEM HNO ID: [id number] Author: Bri (Rn) SEYMOUR Swann Service: Case [...] 10, 2019 TIME: 4:23 PM PAGER/CONTACT #: [phone] Normal [facility] CBCon 10-10-2019 Erythrocyte distribution width (RBC) [Ratio] 16.0 % High 11.5-15.0 [facility] Comment on above: Performed By: #### C BC, BMP, MG1, PHOS ####[place] [phone] Hematocrit (Bld) [Volume fraction] 23.2 % Low 39.0-51.0 [facility] Comment on above: Performed By: #### C BC, BMP, MG1, PHOS ####[place] [id number] [place] [phone] Hemoglobin (Bld) [Mass/Vol] 7.5 g/dL Low 13.0-17.0 [facility] Comment on above: Performed By: #### C BC, BMP, MG1, PHOS ####[place] [phone] MCH (RBC) [Entitic mass] 30.1 pG Normal 26.0-34.0 [facility] Comment on above: Performed By: #### C BC, BMP, MG1, PHOS ####[place] [phone] MCHC (RBC) [Mass/Vol] 32.3 g/dL Normal 30.5-36.0 [facility] Comment on above: Performed By: #### C BC, BMP, MG1, PHOS ####[place] [phone] MCV (RBC) [Entitic vol] 93.2 fL Normal 80.0-100.0 [facility] Comment on above: Performed By: #### C BC, BMP, MG1, PHOS ####[place] [phone] Platelet mean volume (Bld) [Entitic vol] 9.8 fL Normal 9.0-12.7 [facility] Comment on above: Performed By: #### C BC, BMP, MG1, PHOS ####[place] [phone] Platelets (Bld) [#/Vol] 180 10*3/uL Normal 150-400 [facility] Comment on above: Performed By: #### C BC, BMP, MG1, PHOS ####[place] [phone] RBC (Bld) [#/Vol] 2.49 10*6/uL Low 4.20-6.00 [facility] Comment on above: Performed By: #### C BC, BMP, MG1, PHOS ####[place] [phone] WBC (Bld) [#/Vol] 6.64 10*3/uL Normal 3.70-11.00 [facility] Comment on above: Performed By: #### C BC, BMP, MG1, PHOS ####[place] [phone] CBC and Differentialon 10-09 Abs Baso 0.03 k/uL Normal <0.11 [facility] Comment on above: Performed By: #### C BCDIF, PTT, FIBCT, PT ####[address] Abs Addison 0.69 k/uL Normal <0.87 [facility] Comment on above: Performed By: #### C BCDIF, PTT, FIBCT, PT ####[place] [phone] Abs Neut 5.56 k/uL Normal 1.45-7.50 [facility] Comment on above: Performed By: #### C BCDIF, PTT, FIBCT, PT ####[address] Basophils/100 WBC (Bld) 0.4 % Normal [facility] Comment on above: Performed By: #### C BCDIF, PTT, FIBCT, PT ####[address] Eosinophils (Bld) [#/Vol] 10*3/uL Normal <0.46 [facility] Comment on above: Performed By: #### C BCDIF, PTT, FIBCT, PT ####[address] Eosinophils/100 WBC (Bld) 0.3 % Normal [facility] Comment on above: Performed By: #### C BCDIF, PTT, FIBCT, PT ####[place] [phone] Erythrocyte distribution width (RBC) [Ratio] 16.9 % High 11.5-15.0 [facility] Comment on above: Performed By: #### C BCDIF, PTT, FIBCT, PT ####[phone] Hematocrit (Bld) [Volume fraction] 21.7 % Low 39.0-51.0 [facility] Comment on above: Performed By: #### C BCDIF, PTT, FIBCT, PT ####[place] [phone] Hemoglobin (Bld) [Mass/Vol] 7.1 g/dL Low 13.0-17.0 [facility] Comment on above: Performed By: #### C BCDIF, PTT, FIBCT, PT ####[place] [phone] Lymphocytes (Bld) [#/Vol] 1.03 10*3/uL Normal 1.00-4.00 [facility] Comment on above: Performed By: #### C BCDIF, PTT, FIBCT, PT ####[place] [phone] Lymphocytes/100 WBC (Bld) 14.1 % Normal [facility] Comment on above: Performed By: #### C BCDIF, PTT, FIBCT, PT ####[place] [phone] MCH (RBC) [Entitic mass] 29.5 pG Normal 26.0-34.0 [facility] Comment on above: Performed By: #### C BCDIF, PTT, FIBCT, PT ####[place] [phone] MCHC (RBC) [Mass/Vol] 32.7 g/dL Normal 30.5-36.0 [facility] Comment on above: Performed By: #### C BCDIF, PTT, FIBCT, PT ####[place] [phone] MCV (RBC) [Entitic vol] 90.0 fL Normal 80.0-100.0 [facility] Comment on above: Performed By: #### C BCDIF, PTT, FIBCT, PT ####[address] [phone] Monocytes/100 WBC (Bld) 9.4 % Normal [facility] Comment on above: Performed By: #### C BCDIF, PTT, FIBCT, PT ####[place] [phone] Neutrophils/100 WBC (Bld) 75.8 % Normal [facility] Comment on above: Performed By: #### C BCDIF, PTT, FIBCT, PT ####[place] [phone] Platelet mean volume (Bld) [Entitic vol] 10.0 fL Normal 9.0-12.7 [facility] Comment on above: Performed By: #### C BCDIF, PTT, FIBCT, PT ####[place] [phone] Platelets (Bld) [#/Vol] 167 10*3/uL Normal 150-400 [facility] Comment on above: Performed By: #### C BCDIF, PTT, FIBCT, PT ####[place] [phone] RBC (Bld) [#/Vol] 2.41 10*6/uL Low 4.20-6.00 [facility] Comment on above: Performed By: #### C BCDIF, PTT, FIBCT, PT ####[place] [phone] WBC (Bld) [#/Vol] 7.33 10*3/uL Normal 3.70-11.00 [facility] Comment on above: Performed By: #### C BCDIF, PTT, FIBCT, PT ####[place] [phone] Abs Baso 0.04 k/uL Normal <0.11 [facility] Comment on above: Performed By: #### C BCDIF, BMP, MG1, PHOS, PTT, PT ####[place] [phone] Abs Addison 0.56 k/uL Normal <0.87 [facility] Comment on above: Performed By: #### C BCDIF, BMP, MG1, PHOS, PTT, PT ####[place] [address] Abs Neut 5.40 k/uL Normal 1.45-7.50 [facility] Comment on above: Performed By: #### C BCDIF, BMP, MG1, PHOS, PTT, PT ####[place] [address] Basophils/100 WBC (Bld) 0.6 % Normal [facility] Comment on above: Performed By: #### C BCDIF, BMP, MG1, PHOS, PTT, PT ####[place] [address] DTYPE Auto Diff Normal [facility] Comment on above: Performed By: #### C BCDIF, PTT, FIBCT, PT ####[place] [address] Performed By: #### C BCDIF, BMP, MG1, PHOS, PTT, PT ####[place] [address] Eosinophils (Bld) [#/Vol] 0.06 10*3/uL Normal <0.46 [facility] Comment on above: Performed By: #### C BCDIF, BMP, MG1, PHOS, PTT, PT ####[place] [address] Eosinophils/100 WBC (Bld) 0.8 % Normal [facility] Comment on above: Performed By: #### C BCDIF, BMP, MG1, PHOS, PTT, PT ####[place] [address] Erythrocyte distribution width (RBC) [Ratio] 16.6 % High 11.5-15.0 [facility] Comment on above: Performed By: #### C BCDIF, BMP, MG1, PHOS, PTT, PT ####[place] [phone] Hematocrit (Bld) [Volume fraction] 24.9 % Low 39.0-51.0 [facility] Comment on above: Performed By: #### C BCDIF, BMP, MG1, PHOS, PTT, PT ####[place] [phone] Hemoglobin (Bld) [Mass/Vol] 8.3 g/dL Low 13.0-17.0 [facility] Comment on above: Performed By: #### C BCDIF, BMP, MG1, PHOS, PTT, PT ####[place] [phone] Lymphocytes (Bld) [#/Vol] 1.07 10*3/uL Normal 1.00-4.00 [facility] Comment on above: Performed By: #### C BCDIF, BMP, MG1, PHOS, PTT, PT ####[place] [phone] Lymphocytes/100 WBC (Bld) 15.0 % Normal [facility] Comment on above: Performed By: #### C BCDIF, BMP, MG1, PHOS, PTT, PT ####[place] [phone] MCH (RBC) [Entitic mass] 30.3 pG Normal 26.0-34.0 [facility] Comment on above: Performed By: #### C BCDIF, BMP, MG1, PHOS, PTT, PT ####[place] [phone] MCHC (RBC) [Mass/Vol] 33.3 g/dL Normal 30.5-36.0 [facility] Comment on above: Performed By: #### C BCDIF, BMP, MG1, PHOS, PTT, PT ####[place] [phone] MCV (RBC) [Entitic vol] 90.9 fL Normal 80.0-100.0 [facility] Comment on above: Performed By: #### C BCDIF, BMP, MG1, PHOS, PTT, PT ####[place] [phone] Monocytes/100 WBC (Bld) 7.9 % Normal [facility] Comment on above: Performed By: #### C BCDIF, BMP, MG1, PHOS, PTT, PT ####[place] [phone] Neutrophils/100 WBC (Bld) 75.7 % Normal [facility] Comment on above: Performed By: #### C BCDIF, BMP, MG1, PHOS, PTT, PT ####[place] [phone] Platelet mean volume (Bld) [Entitic vol] 9.8 fL Normal 9.0-12.7 [facility] Comment on above: Performed By: #### C BCDIF, BMP, MG1, PHOS, PTT, PT ####[place] [phone] Platelets (Bld) [#/Vol] 173 10*3/uL Normal 150-400 [facility] Comment on above: Performed By: #### C BCDIF, BMP, MG1, PHOS, PTT, PT ####[place] [phone] RBC (Bld) [#/Vol] 2.74 10*6/uL Low 4.20-6.00 [facility] Comment on above: Performed By: #### C BCDIF, BMP, MG1, PHOS, PTT, PT ####[place] [phone] WBC (Bld) [#/Vol] 7.13 10*3/uL Normal 3.70-11.00 [facility] Comment on above: Performed By: #### C BCDIF, BMP, MG1, PHOS, PTT, PT ####[place] [phone] Fibrinogenon 10-10-2019 Fibrinogen 410 mg/dL High 200-400 [facility] Comment on above: Performed By: #### C BCDIF, PTT, FIBCT, PT ####[place] [phone] HISTORY PHYSICALon 0 HISTORY PHYSICAL HNO ID: [id number] Author: Ryan May MD Service: Vascular Surgery Author Type: Physician Type: HANDP Filed: 10/10/2019 9:03 AM Note Text: As a result of the 09/03/19 order by [facility] Director Libby Harris M.D. to cancel non-essential surgeries that would use PPE, unless special criteria are met, I have reviewed the clinical record for this patient and have determined that the scheduled procedure meets the criteria to go forward because there is a threat of permanent dysfunction of an extremity or organ system. Possible thrombosis of the left HIDE HOUSE SUPERVISOR graft. Possible hematoma. Plan to reexplore, evacuate hematoma, possible ileo-femoral bypass vs fem-fem bypass. Jermaine May MD Normal [facility] Hematocriton 10-10-2019 Hematocrit (Bld) [Volume fraction] 23.1 % Low 39.0-51.0 [facility] Comment on above: Performed By: #### H CT, HGB ####[place] [phone] Hemoglobinon 10-10-2019 Hemoglobin (Bld) [Mass/Vol] 7.4 g/dL Low 13.0-17.0 [facility] Comment on above: Performed By: #### H CT, HGB ####[place] [phone] Magnesiumon 10-10-2019 Magnesium [Mass/Vol] 1.8 mg/dL Normal 1.7-2.6 [facility] Comment on above: Performed By: #### C BCDIF, BMP, MG1, PHOS, PTT, PT ####[address], [place] [phone] Magnesium [Mass/Vol] 2.0 mg/dL Normal 1.7-2.6 [facility] Comment on above: Performed By: #### C BC, BMP, MG1, PHOS ####[facility] [place], [place] [phone] NURSING PROGon 10-10-2019 NURSING PROG HNO ID: [id number] Author: Yeimi NessRn) SEYMOUR Wong Service: ? Author Type: Registered Nurse Type: Nursing Progress Note Filed: 10/11/2019 7:38 AM Note Text: Nursing Progress Note Patient Name: Pedro Pablo Sierra Patient Location: [id number]/[facility] __ Daily Note: 1900 Received bedside report from Josse AHUJA. 1999 Assessment complete. Please see all flowsheets. 2100 2 units of blood ordered per Dr. Johnson. 2199 Started 1 unit of PRBC per order. 0 Dr. Johnson and charge machine operator Daphney rounding on pt. SBAR given. New orders received. 2214 Spoke nstg-ag-fzla with Dr. Johnson. Okay to go by cuff pressure. 5 Started 1 unit of PRBC per order. 0000 Reassessment complete. Please see all flowsheets. 0130 Dr. Johnson at bedside. SBAR given. Per Dr. Johnson, draw AM labs at 0330. 0400 Reassessment complete. Please see all flowsheets. 0715 Bedside report given to Briana AHUJA. Normal [facility] NURSING PROG HNO ID: [id number] Author: Fran NessRn) SEYMOUR Quintana Service: Critical Care Author Type: Registered Nurse Type: Nursing Progress Note Filed: 10/10/2019 7:55 PM Note Text: Nursing Progress Note Patient Name: Pedro Pablo Sierra Patient Location: [id number]/[facility] -01 __ Daily Note: 0800: Full assessment complete. 0810: Talking with Misael, who would like amlodipine held this AM, okay to give metoprolol, and okayed by vascular surgery resident to give plavix. 0830: OR team at bedside. SBAR report. Plan to give cefazolin and PRBCs in OR. [phone]: On the phone with Joseph (pt's ex-) who is concerned because she was not updated on when pt went to surgery and is not getting updates like before via text. Joseph is also stating that she signed papers at [facility] recently transfering Health Care POA into her name. Last AD is from 2013 with Michelle (daughter) as POA. 1042: Page to case management [facility] 245 in OR Mr. Sierra [phone]: Ania (pt's ex-) states that she submitted papers recently while at [facility] that she is healthcare POA. Last AD I see is 2013 that has Michelle Richmond (pt's daughter) as POA. -Josse AHUJA [phone]: pT disoriented to self and time emerging from anesthesia. 1620: Pt calling electronic imager light stating he is bleeding. Upon assessment, blood seeping gown and chucks pad under pt. Pressure applied to L groin sight. Page to Dr. Jeter (medical resident). 1621: Dr. Jeter at bedside, assuming full [...] note was completed by: Fran Quintana RN [facility] NURSING PROG HNO ID: [id number] Author: Chrystal NessRn) SEYMOUR Jacob Service: Critical Care Author Type: Registered Nurse Type: Nursing Progress Note Filed: 10/10/2019 6:32 AM Note Text: Nursing Progress Note Patient Name: Pedro Pablo Sierra Patient Location: [id number]/-[facility] 245- __ Daily Note: 1900: Bedside handoff received from SEYMOUR Patel. Patient resting in bed, Heparin gtt verified. Pulses dual checked 1999: Full assessment completed. See doc flowsheets. 0000: Reassessment completed. Pulses still present via dopplar. 0400: Reassessment completed. See doc flowsheets. 0545: Patient pulled out IV. Reduced access. Dr. Moody aware. IV fluids stopped. This note was completed by: Chrystal Jacob RN [facility] OPERATIVE NOon 10-10-2019 OPERATIVE NO HNO ID: [id number] Author: Ryan May MD Service: Vascular Surgery Author Type: Physician Type: Operative Report Filed: 10/10/2019 1:51 PM Note Text: OPERATIVE/PROCEDURE REPORT LOG ID: [id number] Surgery/Procedure Date: 10/10/2019 Incision/Procedure Start Time:9:52 AM Incision Close/Procedure End Time: 13:49 Surgeon(s)/Procedurali st(s) and Tin Plater(s): Surgeon(s) and Role: * Ryan May MD - Primary * Elly (Azalea) Stephanie - Resident - Assisting No Additional Staff Anesthesia: General Procedure(s): Left EIA to HIDE HOUSE SUPERVISOR bypass with 7mm ringed PTFE end to [...] to side to the patch. The proximal HIDE HOUSE SUPERVISOR was clamped with four orange clips. Flow [...] DATE: 10/10/2019 TIME: 1:40 PM PAGER/CONTACT #: [facility] PROGRESSon 10-10-2019 PROGRESS HNO ID: [id number] Author: Elly Brown Service: Vascular Surgery Author [...] (iso-osmotic) 100 mL (ANCEF) 2 g INTRAVENOUS Sports Attorney to OR - NaCl 0.9% iv infusion [...] 1604 -- 10/08/19 1645 pneumatic compression stockings (oh,oh) VTE Prophylaxis: on hep gtt ALLERGIES No [...] hematoma evacuation, possible thrombectomy, possible fem/fem. 2U electronic imager to OR Ok to cont. AC Ancef electronic imager to OR HOSPITALIZATION(S) Indication for admission/procedure: BLE pain Important/Relevant PMH/PSH: s/p left femoral endarterectomy with patch, US guided access RCFA, L profundaplasty, RUFUS recanalization AND stenting, CRISPIN stenting on 10/23, UC, CAD previous AL, DM, HTN, HLD, COPD Overall Course: 63 [...] 10, 2019 TIME: 7:50 AM PAGER/CONTACT #: [phone] [facility] PROGRESS HNO ID: [id number] Author: Rashawn Huntley Service: Critical Care Author [...] CURRENT MEDICATIONS: Medications reviewed. Please refer to [facility] for list of inpatient medications. [...] (iso-osmotic) 100 mL (ANCEF) 2 g INTRAVENOUS Sports Attorney to OR Juliana Oden (Pa) - NaCl [...] hospitalization are listed below. Plese refer to [employer] for a full listing of cultures obtained during this hospitalization. ? N/A DIAGNOSTIC TESTS: The following diagnostic tests/findings were reviewed: ? Most recent labs and imaging results. MOST RECENT CXR FINDINGS: Increased vascular markings, likely fluid overload. OPERATIVE PROCEDURE(S): Date of surgery: 10/08/19 Procedure: Left common HIDE HOUSE SUPERVISOR endarterectomy with bovine path Left profundoplasty Left iliac stenting X4 (I-Cast X2, Jessica X2) Multiple angiograms with angioplasty Surgeon: Dr. May Assessment/Plan 69 year old male with CAD (EF 60% on 09/12/19), AL in 2005, HTN, HLD, COPD, PJ(on 2L O2 nocturnal), DM, GERD, diverticulosis, anxiety, depression, lupus anticoagulant disorder on Coumadin, chronic low back pain, aortoiliac and left ileofemoral PAD s/p multiple interventions including left femoral endarterectomy/aortoil iac stenting in 10/2013 who underwent a Redo left HIDE HOUSE SUPERVISOR endarterectomy, left profundoplasty, left iliac stenting with Dr. May on 10/08/19. She is admitted to SICU post-operatively for neurovascular checks and close hemodynamic monitoring. Developed L HIDE HOUSE SUPERVISOR occlusion POD2 and going back to OR [...] -- 10/08/19 1700 activity - mobilize patient (oh,oh) 10/08/19 1645 pneumatic compression stockings (oh,oh) VTE Prophylaxis: VTE prophylaxis appropriate To be seen and discussed on rounds with SICU staff: Dr. Huntley ICU Checklist --------- --- VTE Prophylaxis: SIGNATURE: Misael Jeter MD PATIENT NAME: Pedro Pablo Sierra DATE: October 10, 2019 TIME: 6:40 AM PAGER/CONTACT #: [phone] [facility] STAFF PHYSICIAN NOTE OF PERSONAL INVOLVEMENT IN [...] HTN GERD ? Procedure/Surgeon 10/08/19 S/P L HIDE HOUSE SUPERVISOR endarterectomy with bovine path, profundoplasty and iliac [...] Huntley DO 7:56 AM October 10, 2019 [facility] PTT,Anticoag Therapyon 10-09 aPTT Coag (Bld) [Time] 109.7 s High 23.0-32.4 [facility] Comment on above: Result Comment: Unfr [...] laboratory APTT reagent in use throughout the [facility]. Called to and read back by: Landry Quintana RN [facility] 10/10/19 Noemí HOLLIS Performed By: #### P TTAC ####[place] [phone] Phosphoruson 10-10-2019 Phosphate [Mass/Vol] 3.0 mg/dL Normal 2.5-4.5 [facility] Comment on above: Performed By: #### C BCDIF, BMP, MG1, PHOS, PTT, PT ####[place] [phone] Phosphate [Mass/Vol] 2.1 mg/dL Low 2.5-4.5 [facility] Comment on above: Performed By: #### C BC, BMP, MG1, PHOS ####[address] [phone] Protimeon 10-10-2019 PT Coag (PPP) [Time] 10.5 s Normal 9.7-13.0 [facility] Comment on above: Performed By: #### C BCDIF, PTT, FIBCT, PT ####[place] [phone] PT Coag (PPP) [Time] 1.0 s Normal 0.9-1.3 [facility] Comment on above: Result Comment: Teri min K Antagonist (VKA) Therapeutic Range: INR 2 to 3 (Target INR of 2.5) Note: For patients treated with VKA drugs, such as warfarin, the [employer] 2012 Guideline recommends [...] Chest 2012, 141:7S-47S Gio RA, et al. [facility] 2017, 70: 252-289 Performed By: #### C BCDIF, PTT, FIBCT, PT ####[place] [phone] Performed By: #### C BCDIF, BMP, MG1, PHOS, PTT, PT ####[place] [phone] PT Coag (PPP) [Time] 10.9 s Normal 9.7-13.0 [facility] Comment on above: Performed By: #### C BCDIF, BMP, MG1, PHOS, PTT, PT ####[place] [phone] SURGICAL PATHOLOGYon 020 SURGICAL PATHOLOGY Specimen originated from [facility] Specimen #: [id number] Submitting Physician: YRAN MAY FINAL DIAGNOSIS Left femoral stent, removal [...] x 1.0 cm. No vessel is seen. Political Organizer sections are submitted in formalin in one cassette. KVB/ka 10/14/2019 Gross examination performed at , [address] [place] [address] Date of Report: 10/15/2019 Date of Procedure: 10/10/2019 Date of Receipt: 10/11/2019 Submitted by: RYAN MAY Location: [facility] Diagnostic interpretation performed at [place] [address]. IA Number: [id number] [facility] THERAPY NTon 10-10-2019 THERAPY NT HNO ID: [id number] Author: Shakir NessPtPauline Coello Service: Physical Therapy Author Type: Physical Therapist Type: Therapy (PT/OT/Speech/Resp) Filed: 10/10/2019 1:18 PM Note Text: .PHYSICAL THERAPY MISSED VISIT SERVICE DATE: 10/10/2019 SERVICE TIME: 1317 to 1317 ROOM: [facility] ( OPERATING ROOM) Attempted Treatment. Patient not seen due to Surgery. SIGNATURE: Shakir Coello PT PATIENT NAME: Pedro Pablo Sierra DATE: October 10, 2019 TIME: 1:18 PM [facility] THERAPY NT HNO ID: [id number] Author: Caitlin Thomas Service: Occupational Therapy Author Type: Occupational Therapist Type: Therapy (PT/OT/Speech/Resp) Filed: 10/10/2019 7:37 AM Note Text: OCCUPATIONAL THERAPY MISSED VISIT SERVICE DATE: 10/10/2019 SERVICE TIME: 0736 to 0736 ROOM: [place] [address] Attempted Treatment. Patient not seen due to Surgery. Pt going back to OR. OT tx on hold today. Will continue to monitor. SIGNATURE: Caitlin Thomas OTR/L PATIENT NAME: Pedro Pablo Sierra DATE: October 10, 2019 TIME: 7:36 AM [facility] XR CHEST 1V FRONTAL PORTon 0 [...] airspace opacities, which may relate to atelectasis. Tube Sizer Operator: PSCB Transcribe Date/Time: Oct 10 2019 6:59A Dictated by : DULCE BARRON MD This examination was interpreted and the report reviewed and electronically signed by: DULCE BARRON MD on Oct 10 2019 7:00AM EST [id number] Normal [facility] ALLIED HEALTHon 10-09-2019 ALLIED HEALTH HNO ID: [id number] Author: Markell NessNutrition CoordinatorPauline Alonzo Service: Spiritual Care Author Type: Nutrition Coordinator Type: Allied Health Filed: 10/09/2019 5:11 PM [...] patient's RN who could page the on-call screening unit registered nurse. ? To contact the [facility] Care Department: Please call [phone]?or Page the On-Call Nutrition Coordinator at pager [phone].??? Thank you for the opportunity to be of service. SIGNATURE: Chaplain Terry PATIENT NAME: Pedro Pablo Sierra DATE: October 09, 2019 TIME: 5:09 PM PAGER/CONTACT #: [phone] Normal [facility] APTTon 10-09-2019 aPTT Coag (Bld) [Time] 20.8 s Low 23.0-32.4 [facility] Comment on above: Result Comment: Unfr [...] laboratory APTT reagent in use throughout the [facility]. Performed By: #### C BC, BMP, MG1, PHOS, PTT, PT ####[place] [address] [place], [place] [phone] Basic Metabolic Panlon 10-08 Anion gap [Moles/Vol] 9 mmol/L Normal 9-18 [facility] Comment on above: Performed By: #### C BC, BMP, MG1, PHOS, PTT, PT ####[place] [address] [place], [place] [phone] Calcium [Mass/Vol] 8.1 mg/dL Low 8.5-10.5 [facility] Comment on above: Performed By: #### C BC, BMP, MG1, PHOS, PTT, PT ####[place] [address] [place], [place] [phone] Chloride [Moles/Vol] 101 mmol/L Normal 98-110 [facility] Comment on above: Performed By: #### C BC, BMP, MG1, PHOS, PTT, PT ####[place] [phone] CO2 [Moles/Vol] 26 mmol/L Normal 23-32 [facility] Comment on above: Performed By: #### C BC, BMP, MG1, PHOS, PTT, PT ####[place] [phone] Creatinine [Mass/Vol] 0.81 mg/dL Normal 0.70-1.40 [facility] Comment on above: Performed By: #### C BC, BMP, MG1, PHOS, PTT, PT ####[place] [phone] eGFR- Amer. >60 Normal >60 [facility] Comment on above: Performed By: #### C BC, BMP, MG1, PHOS, PTT, PT ####[place] [phone] GFR/1.73 sq M predicted among non-blacks MDRD (S/P/Bld) [Vol rate/Area] mL/min/{1.73_m2} Normal >60 [facility] Comment on above: Performed By: #### C BC, BMP, MG1, PHOS, PTT, PT ####[place] [phone] Glucose [Mass/Vol] 129 mg/dL High 65-100 [facility] Comment on above: Performed By: #### C BC, BMP, MG1, PHOS, PTT, PT ####[place] [phone] Potassium [Moles/Vol] 4.5 mmol/L Normal 3.5-5.0 [facility] Comment on above: Performed By: #### C BC, BMP, MG1, PHOS, PTT, PT ####[place] [phone] Sodium [Moles/Vol] 136 mmol/L Normal 135-146 [facility] Comment on above: Performed By: #### C BC, BMP, MG1, PHOS, PTT, PT ####[facility] [place], [place] [phone] Urea nitrogen [Mass/Vol] 15 mg/dL Normal 10-25 [facility] Comment on above: Performed By: #### C BC, BMP, MG1, PHOS, PTT, PT ####[place] [address] [place], [place] [phone] CASE MANAGEMon 10-09-2019 CASE MANAGEM HNO ID: [id number] Author: Carly NessRn) SEYMOUR Man Service: Case [...] once a week. Pt nurse is from [facility] ). Carmen would like AVS faxed at d/c to [phone] SIGNATURE: Carly Man RN,BSN PATIENT NAME: Pedro Pablo Sierra DATE: October 09, 2019 TIME: 1:44 PM PAGER/CONTACT #: [phone] [facility] CASE MGT INIT ASSESon 2019 CASE MGT INIT [facility] HNO ID: [id number] Author: Carly NessRn) SEYMOUR Man Service: Case Management Author Type: Registered Nurse Type: Care Mgt Initial Assessment Filed: 10/09/2019 12:41 PM Note Text: CARE MANAGEMENT: ASSESSMENT AND DISCHARGE PLAN SERVICE DATE: October 09, 2019 SERVICE TIME: 1240 PRIMARY CARE PHYSICIAN: DAIJA MORTON MD ADMISSION STATUS: Inpatient Needs Prior to Discharge: To Be Determined MEDICAL: [facility] MEDICARE Patient/Political Organizer Stated Goals: To improve my functional status;To have reduction in symptoms;To return home to life as it was Health Insurance: Medicare;Medicaid Health Issues Impacting Discharge Plan: Newly diagnosed;Chronic Newly Diagnosed: s/p 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 Last discharge within 30 days: No Advance Directive: Current Advance Directive: Health Care Power of Flow Machine Operator;Living Will In Chart: Yes Up To Date [...] Completely I feel financially burdened by my [id number]-[id number] expenses for my prescription medication:: 0 - Disagree Completely Risk Score: 0 Patient is categorized as: Low risk < 2 Are you interested in bedside delivery of your medications? No Is Patient Psychosocially Complex?: No ASSESSMENT AND PLAN: Medical Needs: Medical Needs: Two or more chronic diseases;Fall risk or frequent falls Psychosocial Needs: Psychosocial Needs: None FREEDOM OF CHOICE EXPLAINED: [place] of Choice Given: No Reason Not Given: No placements necessary POTENTIAL TRANSITION PLANS To Be Determined 69 yo male admitted for vascular procedure, vascular surgery following. 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 Pt states B/B [...] 09, 2019 TIME: 12:26 PM PAGER/CONTACT #: [phone] Normal [facility] CBCon 10-09-2019 Erythrocyte distribution width (RBC) [Ratio] 15.7 % High 11.5-15.0 [facility] Comment on above: Performed By: #### C BC, BMP, MG1, PHOS, PTT, PT ####[facility] [place], [place] [phone] Hematocrit (Bld) [Volume fraction] 28.4 % Low 39.0-51.0 [facility] Comment on above: Performed By: #### C BC, BMP, MG1, PHOS, PTT, PT ####[place] [phone] MCH (RBC) [Entitic mass] 30.2 pG Normal 26.0-34.0 [facility] Comment on above: Performed By: #### C BC, BMP, MG1, PHOS, PTT, PT ####[place] [phone] MCHC (RBC) [Mass/Vol] 32.7 g/dL Normal 30.5-36.0 [facility] Comment on above: Performed By: #### C BC, BMP, MG1, PHOS, PTT, PT ####[place] [phone] MCV (RBC) [Entitic vol] 92.2 fL Normal 80.0-100.0 [facility] Comment on above: Performed By: #### C BC, BMP, MG1, PHOS, PTT, PT ####[place] [phone] Platelet mean volume (Bld) [Entitic vol] 9.9 fL Normal 9.0-12.7 [facility] Comment on above: Performed By: #### C BC, BMP, MG1, PHOS, PTT, PT ####[place] [phone] Platelets (Bld) [#/Vol] 220 10*3/uL Normal 150-400 [facility] Comment on above: Performed By: #### C BC, BMP, MG1, PHOS, PTT, PT ####[place] [phone] RBC (Bld) [#/Vol] 3.08 10*6/uL Low 4.20-6.00 [facility] Comment on above: Performed By: #### C BC, BMP, MG1, PHOS, PTT, PT ####[place] [phone] WBC (Bld) [#/Vol] 7.77 10*3/uL Normal 3.70-11.00 [facility] Comment on above: Performed By: #### C BC, BMP, MG1, PHOS, PTT, PT ####[place] [phone] CBC and Differentialon 10-08 Abs Baso <0.03 Normal <0.11 [facility] Comment on above: Performed By: #### C BCDIF ####[place] [phone] Abs Addison 0.50 k/uL Normal <0.87 [facility] Comment on above: Performed By: #### C BCDIF ####[place] [phone] Abs Neut 5.57 k/uL Normal 1.45-7.50 [facility] Comment on above: Performed By: #### C BCDIF ####[place] [phone] Basophils/100 WBC (Bld) 0.3 % Normal [facility] Comment on above: Performed By: #### C BCDIF ####[place] [phone] DTYPE Auto Diff Normal [facility] Comment on above: Performed By: #### C BCDIF ####[place] [phone] Eosinophils (Bld) [#/Vol] 10*3/uL Normal <0.46 [facility] Comment on above: Performed By: #### C BCDIF ####[place] [phone] Eosinophils/100 WBC (Bld) 0.1 % Normal [facility] Comment on above: Performed By: #### C BCDIF ####[place] [phone] Erythrocyte distribution width (RBC) [Ratio] 16.0 % High 11.5-15.0 [facility] Comment on above: Performed By: #### C BCDIF ####[place] [phone] Hematocrit (Bld) [Volume fraction] 28.9 % Low 39.0-51.0 [facility] Comment on above: Performed By: #### C BCDIF ####[place] [phone] Hemoglobin (Bld) [Mass/Vol] 9.3 g/dL Low 13.0-17.0 [facility] Comment on above: Performed By: #### C BCDIF ####[place] [phone] Performed By: #### C BC, BMP, MG1, PHOS, PTT, PT ####[place] [phone] Lymphocytes (Bld) [#/Vol] 1.19 10*3/uL Normal 1.00-4.00 [facility] Comment on above: Performed By: #### C BCDIF ####[place] [phone] Lymphocytes/100 WBC (Bld) 16.3 % Normal [facility] Comment on above: Performed By: #### C BCDIF ####[place] [phone] MCH (RBC) [Entitic mass] 30.0 pG Normal 26.0-34.0 [facility] Comment on above: Performed By: #### C BCDIF ####[place] [phone] MCHC (RBC) [Mass/Vol] 32.2 g/dL Normal 30.5-36.0 [facility] Comment on above: Performed By: #### C BCDIF ####[place] [phone] MCV (RBC) [Entitic vol] 93.2 fL Normal 80.0-100.0 [facility] Comment on above: Performed By: #### C BCDIF ####[address] [phone] Monocytes/100 WBC (Bld) 6.9 % Normal [facility] Comment on above: Performed By: #### C BCDIF ####[address] [phone] Neutrophils/100 WBC (Bld) 76.4 % Normal [facility] Comment on above: Performed By: #### C BCDIF ####[address] [phone] Platelet mean volume (Bld) [Entitic vol] 9.8 fL Normal 9.0-12.7 [facility] Comment on above: Performed By: #### C BCDIF ####[place] [phone] Platelets (Bld) [#/Vol] 200 10*3/uL Normal 150-400 [facility] Comment on above: Performed By: #### C BCDIF ####[address] [phone] RBC (Bld) [#/Vol] 3.10 10*6/uL Low 4.20-6.00 [facility] Comment on above: Performed By: #### C BCDIF ####[address] [phone] WBC (Bld) [#/Vol] 7.29 10*3/uL Normal 3.70-11.00 [facility] Comment on above: Performed By: #### C BCDIF ####[address] [phone] MEDICAL EMERon 10-09-2019 MEDICAL LEYLA HNO ID: [id number] Author: Misael Jeter MD Service: Critical Care [...] Jeter MD General Surgery Resident PGY2 Pager: [phone] 10/09/2019 5:11 PM Normal [facility] Magnesiumon 10-09-2019 Magnesium [Mass/Vol] 2.1 mg/dL Normal 1.7-2.6 [facility] Comment on above: Result Comment: Revi ewed Performed By: #### C BC, BMP, MG1, PHOS, PTT, PT ####[facility] [place], [place] [phone] NURSING PROGon 10-09-2019 NURSING PROG HNO ID: [id number] Author: Amanda (Rn) SEYMOUR Delgadillo Service: Nursing Author Type: Registered Nurse Type: Nursing Progress Note Filed: 10/09/2019 6:36 PM Note Text: Nursing Progress Note Patient Name: Pedro Pablo Sierra Patient Location: [id number] __ Daily Note: 1745: Bedside handoff received from SEYMOUR Shields. 1800: Dr. Fish at bedside. Patient c/o numbness in left leg. Bilateral DP and PT pulses doppled. Dr. Fihs obtaining consent for surgery tomorrow. 1900: Bedside handoff given to SEYMOUR Jarrell. This note was completed by: Amanda Delgadillo RN [facility] NURSING PROG HNO ID: [id number] Author: Cornelius Hutchison) SEYMOUR Gonzalez Service: Nursing Author Type: Registered Nurse Type: Nursing Progress Note Filed: 10/09/2019 5:39 PM Note Text: Nursing Progress Note Patient Name: Pedro Pablo Sierra Patient Location: [id number]/[facility]-0 [facility] __ Daily Note: 0700 Bedside report received from previous shift RN. 0800 Assessment completed and charted. Neuro intact. VSS. Pulses present via doppler. See flowsheets. 1200 Assessment completed and charted. 1600 Reassessment completed and charted. 1730 Heparin gtt started. See AUG. 1744 Bedside report given to Tigist AHUJA. This note was completed by: Cornelius Gonzalez RN [facility] NUTRITIONon 10-09-2019 NUTRITION HNO ID: [id number] Author: Muna Rivas Service: Nutrition Therapy Author Type: Registered Dietitian Type: Nutrition Filed: 10/09/2019 2:49 PM Note Text: NUTRITION THERAPY SCREEN NOTE SERVICE DATE: 10/09/2019 SERVICE TIME: 2:38 PM Care Plan: Continue current diet Supplements: Impact AR HPI: Per Rashawn Huntley 10/08/2019 69 year old male with CAD (EF 60% on 09/12/19), AL in 2005, HTN, HLD, COPD, PJ(on 2L O2 nocturnal), DM, GERD, diverticulosis, anxiety, depression, lupus anticoagulant disorder on Coumadin, chronic low back pain, aortoiliac and left ileofemoral PAD s/p multiple interventions including left femoral endarterectomy/aortoil iac stenting in 10/2013 who underwent a 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 Formal arterial duplex of LLE shows occluded HIDE HOUSE SUPERVISOR. Plan for exploration and revascularization with Dr. 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 ETX#[id number] For questions Monday through Monday 6am to 6pm please page Red Team [phone] For questions during nights (6pm - 6am) and weekends, please contact the General Surgery Sports Attorney pager, [phone] [facility] PROGRESS HNO ID: [id number] Author: Rashawn Huntley Service: Critical Care Author [...] CURRENT MEDICATIONS: Medications reviewed. Please refer to [facility] for list of inpatient medications. [...] hospitalization are listed below. Plese refer to [facility] for a full listing of cultures obtained during this hospitalization. ? N/A DIAGNOSTIC TESTS: The following diagnostic tests/findings were reviewed: ? Most recent labs and imaging results. MOST RECENT CXR FINDINGS: n/a OPERATIVE PROCEDURE(S): Date of surgery: 10/08/19 Procedure: Left common HIDE HOUSE SUPERVISOR endarterectomy with bovine path Left profundoplasty Left iliac stenting X4 (I-Cast X2, Jessica X2) Multiple angiograms with angioplasty Surgeon: Dr. 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 Huntley ICU Checklist --------- --- VTE Prophylaxis: SIGNATURE: Misael Jeter MD PATIENT NAME: Pedro Pablo Sierra DATE: October 09, 2019 TIME: 6:40 AM PAGER/CONTACT #: [phone] [facility] STAFF PHYSICIAN NOTE OF PERSONAL INVOLVEMENT IN [...] Essential HTN GERD Procedure/Surgeon 10/08/19 S/P L HIDE HOUSE SUPERVISOR endarterectomy with bovine path, profundoplasty and iliac [...] DO 8:20 AM October 09, 2019 Normal [facility] PTT,Anticoag Therapyon 10-08 aPTT Coag (Bld) [Time] 23.9 s Normal 23.0-32.4 [facility] Comment on above: Result Comment: Unfr [...] laboratory APTT reagent in use throughout the [facility]. Performed By: #### P T, PTTAC ####[address] [phone] Phosphoruson 10-09-2019 Phosphate [Mass/Vol] 3.6 mg/dL Normal 2.5-4.5 [facility] Comment on above: Performed By: #### C BC, BMP, MG1, PHOS, PTT, PT ####[address] [phone] Protimeon 10-09-2019 PT Coag (PPP) [Time] 10.2 s Normal 9.7-13.0 [facility] Comment on above: Performed By: #### P T, PTTAC ####[address] [phone] PT Coag (PPP) [Time] 1.0 s Normal 0.9-1.3 [facility] Comment on above: Result Comment: Teri min K Antagonist (VKA) Therapeutic Range: INR 2 to 3 (Target INR of 2.5) Note: For patients treated with VKA drugs, such as warfarin, the [employer] 2012 Guideline recommends [...] [phone] Performed By: #### P T, PTTAC ####[place] [phone] Performed By: #### C BC, BMP, MG1, PHOS, PTT, PT ####[place] [phone] PT Coag (PPP) [Time] 10.5 s Normal 9.7-13.0 [facility] Comment on above: Performed By: #### C BC, BMP, MG1, PHOS, PTT, PT ####[place] [phone] Staph aureus PCRon 0 MRSA PCR Negative [facility] Comment on above: Performed By: #### S APCR ####[place] [phone] S aureus Spec Source Nasal [facility] Comment on above: Performed By: #### S APCR ####[phone] Staph aureus PCR Negative [facility] Comment on above: Performed By: #### S APCR ####[place] [phone] [phone] THERAPY NTon 10-09-2019 THERAPY NT HNO ID: [id number] Author: Shakir Alicea (Pt) Mode Service: Physical Therapy Author Type: Physical Therapist Type: Therapy (PT/OT/Speech/Resp) Filed: 10/09/2019 2:58 PM Note Text: Physical Therapy Evaluation SERVICE DATE: 10/09/2019 SERVICE TIME: 1055 to 1120 ROOM: [id number] Recommended Discharge Disposition: Home PT Anticipated Discharge [...] ness on feet Interventions Provided: Evaluation;Gait Training (86728) $ Evaluation-Moderate (19195) Billed Units: 1 unit Gait Training (79314) Treatment Minutes: 10 1 unit Skilled Intervention(s): [...] Consult : PVD s/p L LE redo HIDE HOUSE SUPERVISOR endarterectomy, L profundoplasty, iliac stenting on 10/08/19 Relevant Past Medical History: CAD, AL, HTN, HLD, COPD, PJ, DM, anxiety, depression, blind R eye Patient Report: Pt agreeable to participate in therapy session Home Environment Patient Lives With: Self/Alone Assistance Available: radio time buyer Entry To Home: Stairs;Other: See Comment(stair lift) [...] October 09, 2019 TIME: 2:46 PM Normal [facility] THERAPY NT HNO ID: [id number] Author: Caitlin (Ot) William Service: Occupational Therapy Author Type: Occupational Therapist Type: Therapy (PT/OT/Speech/Resp) Filed: 10/09/2019 12:48 PM Note Text: Occupational Therapy Evaluation SERVICE DATE: 10/09/2019 SERVICE TIME: 1010 to 1050 ROOM: [place] [address] Recommended Discharge Disposition: Home OT Justification For [...] on feet Interventions Provided: Evaluation;Self Intermediate Management (84058) $ Evaluation-Moderate (59019) Billed Units: 1 unit Self Intermediate Management (84580) Treatment Minutes: 25 2 units Skilled Intervention(s): [...] Reason for Occupational Therapy Consult: redo L HIDE HOUSE SUPERVISOR endarterectomy, L profundoplasty, L iliac stenting 10/07 Relevant Past Medical History: CAD, AL, HTN, HLD, COPD, PJ, DM, anxiety, depression, blind R eye Patient Report: My daughter is a nurse. She's over a lot. Home Environment Patient Lives With: Self/Alone Assistance Available: radio time buyer(daughter comes over often) Entry To Home: Stairs(pt [...] DATE: October 09, 2019 TIME: 12:39 PM [facility] ANES POSTPROC EVALon 020 ANES POSTPROC EVAL HNO ID: [id number] Author: Job Roberts Service: ? Author Type: [...] (Left ) Diagnosis: PVD (peripheral vascular disease) ([facility]) (PVD (peripheral vascular disease) ([facility]) [I73.9]) Surgeon: Ryan May MD [...] October 08, 2019 TIME: 6:39 PM CSN: [id number] [facility] ANES PRE-OPon 10-08-2019 ANES PRE-OP HNO ID: [id number] Author: Anabel Lozano Service: ? Author Type: [...] movements. - COMPOUNDED PRESCRIPTION Aerosol supplies Dx:J44.1 NPI#[id number] - ipratropium-albuterol (DUONEB) 0.5 mg-3 mg(2.5 mg [...] October 08, 2019 TIME: 8:42 AM CSN: [id number] Normal [facility] APTTon 10-08-2019 aPTT Coag (Bld) [Time] 53.2 s High 23.0-32.4 [facility] Comment on above: Result Comment: Unfr [...] laboratory APTT reagent in use throughout the [facility]. Performed By: #### C BC, BMP, MG1, PHOS, PT, PTT ####[place] [address] [place], [place] [phone] Basic Metabolic Panlon 10-07 Anion gap [Moles/Vol] 13 mmol/L Normal 9-18 [facility] Comment on above: Performed By: #### C BC, BMP, MG1, PHOS, PT, PTT ####[facility] [place], [place] [phone] Calcium [Mass/Vol] 8.4 mg/dL Low 8.5-10.5 [facility] Comment on above: Performed By: #### C BC, BMP, MG1, PHOS, PT, PTT ####[place] [address] [place], [place] [phone] Chloride [Moles/Vol] 100 mmol/L Normal 98-110 [facility] Comment on above: Performed By: #### C BC, BMP, MG1, PHOS, PT, PTT ####[place] [phone] CO2 [Moles/Vol] 24 mmol/L Normal 23-32 [facility] Comment on above: Performed By: #### C BC, BMP, MG1, PHOS, PT, PTT ####[place] [phone] Creatinine [Mass/Vol] 0.71 mg/dL Normal 0.70-1.40 [facility] Comment on above: Performed By: #### C BC, BMP, MG1, PHOS, PT, PTT ####[place] [phone] eGFR- Amer. >60 Normal >60 [facility] Comment on above: Performed By: #### C BC, BMP, MG1, PHOS, PT, PTT ####[place] [phone] GFR/1.73 sq M predicted among non-blacks MDRD (S/P/Bld) [Vol rate/Area] mL/min/{1.73_m2} Normal >60 [facility] Comment on above: Performed By: #### C BC, BMP, MG1, PHOS, PT, PTT ####[place] [phone] Glucose [Mass/Vol] 160 mg/dL High 65-100 [facility] Comment on above: Performed By: #### C BC, BMP, MG1, PHOS, PT, PTT ####[place] [phone] Potassium [Moles/Vol] 4.1 mmol/L Normal 3.5-5.0 [facility] Comment on above: Performed By: #### C BC, BMP, MG1, PHOS, PT, PTT ####[place] [phone] Sodium [Moles/Vol] 137 mmol/L Normal 135-146 [facility] Comment on above: Performed By: #### C BC, BMP, MG1, PHOS, PT, PTT ####[place] [phone] Urea nitrogen [Mass/Vol] 12 mg/dL Normal 10-25 [facility] Comment on above: Performed By: #### C BC, BMP, MG1, PHOS, PT, PTT ####[place] [phone] CBCon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 Morton MD Work Phone: 5(784)438-251747 [place] [address] 01-08-2025 16:07-0400 Inhaled oxygen flow rate 2 L/min Dr. Daija Morton MD Work Phone: 7(710)980-419247 [place] [address] 01-08-2025 16:07-0400 Systolic blood pressure 112 mm[Hg] Dr. Daija Morton MD Work Phone: 2(791)328-602147 [place] [address] 01-08-2025 03:12-0400 Body mass index (BMI) [Ratio] 19.8 kg/m2 Dr. Daija Morton MD Work Phone: 1(667)[phone] [place] [address] 01-08-2025 03:12-0400 Body weight 66.[address] Daija Morton MD Work Phone: 7(931)997-246647 [place] [address] 01-07-2025 09:26-0400 Body height 182.[address] Daija Morton MD Work Phone: 5(457)711-866747 [place] [address] 01-06-2025 15:50-0400 Inhaled oxygen concentration 35 % Dr. Daija Morton MD Work Phone: 1(524)889-207547 [place] [address] 01-05-2025 14:00-0400 Body temperature 98.1 [degF] Dr. Daija Morton MD Work Phone: 7(444)448-683547 [place] [address] 01-05-2025 14:00-0400 Diastolic blood pressure 80 mm[Hg] Dr. Daija Morton MD Work Phone: 8(716)633-637147 [place] [address] 01-05-2025 14:00-0400 Heart rate 71 /min Dr. Daija Morton MD Work Phone: 5(236)236-781547 [place] [address] 01-05-2025 14:00-0400 Respiratory rate 34 /min Dr. Daija Morton MD Work Phone: 3(254)287-943347 [place] [address] 01-05-2025 14:00-0400 SaO2% (BldA) [Mass fraction] 93 % Dr. Daija Morton MD Work Phone: 1(591)684-628047 [place] [address] 01-05-2025 14:00-0400 Systolic blood pressure 157 mm[Hg] Dr. Daija Morton MD Work Phone: 9(485)251-063347 [place] [address] 01-05-2025 13:33-0400 Inhaled oxygen concentration 35 % Dr. Daija Morton MD Work Phone: 0(579)702-251747 [place] [address] 01-05-2025 13:33-0400 Inhaled oxygen flow rate 10 L/min Dr. Daija Morton MD Work Phone: 9(481)310-819647 [place] [address] 01-05-2025 09:38-0400 Body height 182.[address] Daija Morton MD Work Phone: 1(365)210-125447 [place] [address] 01-05-2025 09:38-0400 Body mass index (BMI) [Ratio] 22.5 kg/m2 Dr. Daija Morton MD Work Phone: 9(272)595-557547 [place] [address] 01-05-2025 09:38-0400 Body weight 75.[address] Daija Morton MD Work Phone: 7(177)050-682147 [place] [address] 01-03-2025 10:00-0400 Diastolic blood pressure 73 mm[Hg] Dr. Daija Morton MD Work Phone: 4(191)560-176247 [place] [address] 01-03-2025 10:00-0400 Heart rate 53 /min Dr. Daija Morton MD Work Phone: 3(383)993-997447 [place] [address] 01-03-2025 10:00-0400 Respiratory rate 16 /min Dr. Daija Morton MD Work Phone: 5(083)397-182147 [place] [address] 01-03-2025 10:00-0400 SaO2% (BldA) [Mass fraction] 99 % Dr. Daija Morton MD Work Phone: 3(330)237-915247 [place] [address] 01-03-2025 10:00-0400 Systolic blood pressure 174 mm[Hg] Dr. Daija Morton MD Work Phone: 3(469)942-730147 [place] [address] 01-03-2025 08:17-0400 Body temperature 97.6 [degF] Dr. Daija Morton MD Work Phone: 7(025)011-807847 [place] [address] 01-03-2025 06:27-0400 Body height 182.[address] Daija Morton MD Work Phone: 2(560)319-920647 [place] [address] 01-03-2025 06:27-0400 Body mass index (BMI) [Ratio] 20.4 kg/m2 Dr. Daija Morton MD Work Phone: 7(597)481-873747 [place] [address] 01-03-2025 06:27-0400 Body weight 68.[address] Daija Morton MD Work Phone: 1(169)825-573347 [place] [address] 12-26-2024 18:05-0400 Diastolic blood pressure 72 mm[Hg] Dr. Daija Morton MD Work Phone: 4(349)992-491547 [place] [address] 12-26-2024 18:05-0400 Heart rate 74 /min Dr. Daija Morton MD Work Phone: 5(156)892-545747 [place] [address] 12-26-2024 18:05-0400 Systolic blood pressure 162 mm[Hg] Dr. Daija Morton MD Work Phone: 6(071)431-669647 [place] [address] 12-26-2024 14:27-0400 Body temperature 97.9 [degF] Dr. Daija Morton MD Work Phone: 2(525)210-779347 [place] [address] 12-26-2024 14:27-0400 Inhaled oxygen flow rate 2 L/min Dr. Daija Morton MD Work Phone: 7(907)035-701547 [place] [address] 12-26-2024 14:27-0400 Respiratory rate 18 /min Dr. Daija Morton MD Work Phone: 2(893)129-226847 [place] [address] 12-26-2024 14:27-0400 SaO2% (BldA) [Mass fraction] 96 % Dr. Daija Morton MD Work Phone: 8(333)293-889247 [place] [address] 12-26-2024 04:00-0400 Body mass index (BMI) [Ratio] 24.5 kg/m2 Dr. Daija Morton MD Work Phone: 0(786)015-822647 [place] [address] 12-25-2024 11:12-0400 Body height 172.[address] Daija Morton MD Work Phone: 6(775)514-013247 [place] [address] 12-25-2024 11:12-0400 Body weight [address] Daija Morton MD Work Phone: 8(678)503-947247 [place] [address] 12-17-2024 18:14-0400 Body temperature 98.5 [degF] Dr. Daija Morton MD Work Phone: 3(255)783-385247 [place] [address] 12-17-2024 18:14-0400 Diastolic blood pressure 91 mm[Hg] Dr. Daija Morton MD Work Phone: 1(001)717-060947 [place] [address] 12-17-2024 18:14-0400 Heart rate 64 /min Dr. Daija Morton MD Work Phone: 2(004)642-847347 [place] [address] 12-17-2024 18:14-0400 Respiratory rate 16 /min Dr. Daija Morton MD Work Phone: 6(982)855-685247 [place] [address] 12-17-2024 18:14-0400 SaO2% (BldA) [Mass fraction] 99 % Dr. Daija Morton MD Work Phone: 0(571)328-850747 [place] [address] 12-17-2024 18:14-0400 Systolic blood pressure 197 mm[Hg] Dr. Daija Morton MD Work Phone: 8(686)416-919947 [place] [address] 12-17-2024 18:00-0400 Inhaled oxygen flow rate 2 L/min Dr. Daija Morton MD Work Phone: 2(120)649-262547 [place] [address] 12-17-2024 16:21-0400 Body height 172.[address] Daija Morton MD Work Phone: 4(754)286-632347 [place] [address] 12-17-2024 16:21-0400 Body mass index (BMI) [Ratio] 24.5 kg/m2 Dr. Daija Morton MD Work Phone: 0(411)449-707647 [place] [address] 12-17-2024 16:21-0400 Body weight [address] Daija Morton MD Work Phone: 6(557)219-669347 [place] [address] 12-16-2024 20:45-0400 Heart rate 76 /min Dr. Daija Morton MD Work Phone: 2(822)357-616347 [place] [address] 12-16-2024 20:45-0400 Respiratory rate 20 /min Dr. Daija Morton MD Work Phone: 6(491)898-656647 [place] [address] 12-16-2024 19:55-0400 Body temperature 98 [degF] Dr. Daija Morton MD Work Phone: 3(446)413-844347 [place] [address] 12-16-2024 19:55-0400 Diastolic blood pressure 72 mm[Hg] Dr. Daija Morton MD Work Phone: 4(434)404-305347 [place] [address] 12-16-2024 19:55-0400 Inhaled oxygen flow rate 2 L/min Dr. Daija Morton MD Work Phone: 0(495)167-682447 [place] [address] 12-16-2024 19:55-0400 SaO2% (BldA) [Mass fraction] 94 % Dr. Daija Morton MD Work Phone: 5(385)936-067847 [place] [address] 12-16-2024 19:55-0400 Systolic blood pressure 160 mm[Hg] Dr. Daija Morton MD Work Phone: 3(805)879-820347 [place] [address] 12-16-2024 03:13-0400 Body mass index (BMI) [Ratio] 23.4 kg/m2 Dr. Daija Morton MD Work Phone: 9(982)625-469947 [place] [address] 12-16-2024 03:13-0400 Body weight 70.[address] Daija Morton MD Work Phone: 8(406)262-975847 [place] [address] 12-14-2024 13:01-0400 Body height 172.[address] Daija Morton MD Work Phone: 5(485)331-269147 [place] [address] 12-13-2024 20:55-0400 Body temperature 98.3 [degF] Dr. Daija Morton MD Work Phone: 2(550)032-672147 [place] [address] 12-13-2024 20:55-0400 Diastolic blood pressure 73 mm[Hg] Dr. Daija Morton MD Work Phone: 2(789)179-665847 [place] [address] 12-13-2024 20:55-0400 Heart rate 65 /min Dr. Daija Morton MD Work Phone: 5(285)841-942547 [place] [address] 12-13-2024 20:55-0400 Respiratory rate 26 /min Dr. Daija Morton MD Work Phone: 4(253)763-355047 [place] [address] 12-13-2024 20:55-0400 SaO2% (BldA) [Mass fraction] 98 % Dr. Daija Morton MD Work Phone: 0(316)929-196747 [place] [address] 12-13-2024 20:55-0400 Systolic blood pressure 191 mm[Hg] Dr. Daija Morton MD Work Phone: 5(562)688-499947 [place] [address] 12-13-2024 18:10-0400 Inhaled oxygen flow rate 3.5 L/min Dr. Daija Morton MD Work Phone: 3(377)396-668047 [place] [address] 12-13-2024 17:46-0400 Body height 172.[address] Daija Morton MD Work Phone: [facility] 12-13-2024 17:46-0400 Body mass index (BMI) [Ratio] 24.3 kg/m2 Dr. Daija Morton MD Work Phone: [facility] 12-13-2024 17:46-0400 Body weight 72.[address] Daija Morton MD Work Phone: [facility] 12-12-2024 13:57-0400 Body mass index (BMI) [Ratio] 24.05 kg/m2 Anjel Older TRANSLITERATOR.PATIENT CARE ASSOCIATE Work Phone: 12-12-2024 13:57-0400 Body weight 71.76 kg Anjel Older TRANSLITERATOR.PATIENT CARE ASSOCIATE Work Phone: 12-12-2024 13:57-0400 Diastolic blood pressure 83 mm[Hg] Anjel Older TRANSLITERATOR.PATIENT CARE ASSOCIATE Work Phone: 12-12-2024 13:57-0400 Heart rate 65 /min Anjel Older TRANSLITERATOR.PATIENT CARE ASSOCIATE Work Phone: 12-12-2024 13:57-0400 Respiratory rate 20 /min Anjel Older TRANSLITERATOR.PATIENT CARE ASSOCIATE Work Phone: 12-12-2024 13:57-0400 SaO2% (BldA) [Mass fraction] 94 % Anjel Older TRANSLITERATOR.PATIENT CARE ASSOCIATE Work Phone: 12-12-2024 13:57-0400 Systolic blood pressure 185 mm[Hg] Anjel Older TRANSLITERATOR.PATIENT CARE ASSOCIATE Work Phone: 09-02-2024 20:48-0400 Heart rate 62 /min Dr. Daija Morton MD Work Phone: [facility] 09-02-2024 19:34-0400 Body temperature 97.5 [degF] Dr. Daija Morton MD Work Phone: [facility] 09-02-2024 19:34-0400 Diastolic blood pressure 77 mm[Hg] Dr. Daija Morton MD Work Phone: 0(826)009-448447 [place] [address] 09-02-2024 19:34-0400 Respiratory rate 16 /min Dr. Daija Morton MD Work Phone: 9(556)123-858347 [place] [address] 09-02-2024 19:34-0400 SaO2% (BldA) [Mass fraction] 92 % Dr. Daija Morton MD Work Phone: 1(022)741-720247 [place] [address] 09-02-2024 19:34-0400 Systolic blood pressure 146 mm[Hg] Dr. Daija Morton MD Work Phone: 9(183)577-110047 [place] [address] 09-02-2024 10:22-0400 Body height 172.[address] Daija Morton MD Work Phone: 1(872)219-601547 [place] [address] 09-02-2024 10:22-0400 Body weight 68.[address] Daija Morton MD Work Phone: 9(738)183-883347 [place] [address] 09-02-2024 06:00-0400 Body mass index (BMI) [Ratio] 22.8 kg/m2 Dr. Daija Morton MD Work Phone: 0(097)614-343947 [place] [address] 09-01-2024 22:41-0400 Inhaled oxygen flow rate 2 L/min Dr. Daija Morton MD Work Phone: 9(865)044-316747 [place] [address] 08-25-2024 18:11-0400 Diastolic blood pressure 90 mm[Hg] Dr. Daija Morton MD Work Phone: 3(666)891-077947 [place] [address] 08-25-2024 18:11-0400 Heart rate 66 /min Dr. Daija Morton MD Work Phone: 5(228)270-359947 [place] [address] 08-25-2024 18:11-0400 Respiratory rate 24 /min Dr. Daija Morton MD Work Phone: 2(735)982-107347 [place] [address] 08-25-2024 18:11-0400 SaO2% (BldA) [Mass fraction] 93 % Dr. Daija Morton MD Work Phone: 8(950)842-728147 [place] [address] 08-25-2024 18:11-0400 Systolic blood pressure 197 mm[Hg] Dr. Daija Morton MD Work Phone: [facility] 08-25-2024 16:12-0400 Body height 165.[address] Daija Morton MD Work Phone: [facility] 08-25-2024 16:12-0400 Body temperature 97.7 [degF] Dr. Daija Morton MD Work Phone: [facility] 03-23-2024 13:19-0400 Diastolic blood pressure 98 mm[Hg] Pura Praisler-Wood TRANSLITERATOR.PATIENT CARE ASSOCIATE Work Phone: 03-23-2024 13:19-0400 Systolic blood pressure 230 mm[Hg] Pura Praisler-Wood TRANSLITERATOR.PATIENT CARE ASSOCIATE Work Phone: 03-23-2024 13:12-0400 Body mass index (BMI) [Ratio] 20.92 kg/m2 Pura Praisler-Wood TRANSLITERATOR.PATIENT CARE ASSOCIATE Work Phone: 03-23-2024 13:12-0400 Body temperature 96.91 [degF] Pura Praisler-Wood TRANSLITERATOR.PATIENT CARE ASSOCIATE Work Phone: 03-23-2024 13:12-0400 Body weight 62.4 kg Pura Praisler-Wood TRANSLITERATOR.PATIENT CARE ASSOCIATE Work Phone: 03-23-2024 13:12-0400 Heart rate 74 /min Pura Praisler-Wood TRANSLITERATOR.PATIENT CARE ASSOCIATE Work Phone: 03-23-2024 13:12-0400 Respiratory rate 16 /min Pura Praisler-Wood TRANSLITERATOR.PATIENT CARE ASSOCIATE Work Phone: 11-21-2023 12:49-0400 Diastolic blood pressure 94 mm[Hg] Rebekah Bogner PA-C Work Phone: 11-21-2023 12:49-0400 Systolic blood pressure 200 mm[Hg] Rebekah Bogner PA-C Work Phone: 11-21-2023 12:42-0400 Body mass index (BMI) [Ratio] 22.96 kg/m2 Rebekah Bogner PA-C Work Phone: 11-21-2023 12:42-0400 Body weight 68.49 kg Rebekah Bogner PA-C Work Phone: 11-21-2023 12:42-0400 Heart rate 60 /min Rebekah Bogner PA-C Work Phone: 11-21-2023 12:42-0400 Respiratory rate 16 /min Rebekah Bogner PA-C Work Phone: 11-21-2023 12:42-0400 SaO2% (BldA) [Mass fraction] 92 % Rebkeah Bogner PA-C Work Phone: 08-02-2023 19:35-0500 Inhaled oxygen flow rate 2 L/min Dr. Daija Morton Work Phone: [facility] 08-02-2023 19:27-0500 Body temperature 97.9 [degF] Dr. Daija Morton Work Phone: [facility] 08-02-2023 19:27-0500 Diastolic blood pressure 59 mm[Hg] Dr. Daija Morton Work Phone: [facility] 08-02-2023 19:27-0500 Heart rate 98 /min Dr. Daija Morton Work Phone: [facility] 08-02-2023 19:27-0500 Respiratory rate 16 /min Dr. Daija Morton Work Phone: [facility] 08-02-2023 19:27-0500 SaO2% (BldA) [Mass fraction] 93 % Dr. Daija Morton Work Phone: [facility] 08-02-2023 19:27-0500 Systolic blood pressure 149 mm[Hg] Dr. Daija Morton Work Phone: 6(763)249-345147 [place] [address] 07-31-2023 10:17-0500 Body height 172.[address] Daija Morton Work Phone: 8(661)430-041147 [place] [address] 07-31-2023 10:17-0500 Body weight 67.[address] Daija Morton Work Phone: 0(214)931-506047 [place] [address] 07-31-2023 00:57-0500 Body mass index (BMI) [Ratio] 22.4 kg/m2 Dr. Daija Morton Work Phone: 8(031)962-736547 [place] [address] 07-31-2023 00:05-0500 Body temperature 99 [degF] Dr. Daija Morton Work Phone: 2(337)445-001547 [place] [address] 07-31-2023 00:05-0500 Diastolic blood pressure 107 mm[Hg] Dr. Daija Morton Work Phone: 0(024)777-599247 [place] [address] 07-31-2023 00:05-0500 Heart rate 107 /min Dr. Daija Morton Work Phone: 8(388)913-111347 [place] [address] 07-31-2023 00:05-0500 Respiratory rate 30 /min Dr. Daija Morton Work Phone: 5(867)755-266247 [place] [address] 07-31-2023 00:05-0500 SaO2% (BldA) [Mass fraction] 98 % Dr. Daija Morton Work Phone: 7(011)032-102247 [place] [address] 07-31-2023 00:05-0500 Systolic blood pressure 173 mm[Hg] Dr. Daija Morton Work Phone: 3(859)688-909047 [place] [address] 07-30-2023 23:25-0500 Inhaled oxygen flow rate 3 L/min Dr. Daija Morton Work Phone: 9(918)011-088047 [place] [address] 07-30-2023 20:30-0500 Body height 172.[address] Daija Morton Work Phone: 1(281)822-344047 [place] [address] 07-30-2023 20:30-0500 Body mass index (BMI) [Ratio] 24.2 kg/m2 Dr. Daija Morton Work Phone: 9(878)502-260947 [place] [address] 07-30-2023 20:30-0500 Body weight 72.[address] Daija Morton Work Phone: 0(436)077-778247 [place] [address] 07-26-2023 12:10-0500 Diastolic blood pressure 59 mm[Hg] Dr. Daija Morton Work Phone: 5(100)861-761647 [place] [address] 07-26-2023 12:10-0500 Heart rate 67 /min Dr. Daija Morton Work Phone: 4(231)358-493347 [place] [address] 07-26-2023 12:10-0500 Respiratory rate 18 /min Dr. Daija Morton Work Phone: 6(943)882-430647 [place] [address] 07-26-2023 12:10-0500 SaO2% (BldA) [Mass fraction] 90 % Dr. Daija Morton Work Phone: 3(922)331-262847 [place] [address] 07-26-2023 12:10-0500 Systolic blood pressure 107 mm[Hg] Dr. Daija Morton Work Phone: 4(080)012-949047 [place] [address] 07-26-2023 08:38-0500 Body temperature 97.8 [degF] Dr. Daija Morton Work Phone: 4(257)627-822747 [place] [address] 07-26-2023 06:59-0500 Inhaled oxygen flow rate 2 L/min Dr. Daija Morton Work Phone: 8(322)102-101747 [place] [address] 07-25-2023 16:00-0500 Body weight 51.[address] Daija Morton Work Phone: 4(282)915-473547 [place] [address] 07-24-2023 21:55-0500 Body mass index (BMI) [Ratio] 17.4 kg/m2 Dr. Daija Morton Work Phone: 5(276)856-837047 [place] [address] 07-24-2023 21:13-0500 Diastolic blood pressure 89 mm[Hg] Dr. Daija Morton Work Phone: 3(840)396-532447 [place] [address] 07-24-2023 21:13-0500 Heart rate 65 /min Dr. Daija Morton Work Phone: 9(613)210-891447 [place] [address] 07-24-2023 21:13-0500 Respiratory rate 16 /min Dr. Daija Morton Work Phone: 9(414)202-509747 [place] [address] 07-24-2023 21:13-0500 SaO2% (BldA) [Mass fraction] 91 % Dr. Daija Morton Work Phone: 0(633)312-267247 [place] [address] 07-24-2023 21:13-0500 Systolic blood pressure 210 mm[Hg] Dr. Daija Morton Work Phone: 6(194)836-691747 [place] [address] 07-24-2023 17:27-0500 Body mass index (BMI) [Ratio] 22.8 kg/m2 Dr. Daija Morton Work Phone: 4(887)272-404147 [place] [address] 07-24-2023 17:27-0500 Body weight [address] Daija Morton Work Phone: 6(447)450-860147 [place] [address] 07-24-2023 16:44-0500 Body height 172.[address] Daija Morton Work Phone: 5(050)182-025547 [place] [address] 07-24-2023 16:44-0500 Body temperature 96.7 [degF] Dr. Daija Morton Work Phone: 2(501)257-711547 [place] [address] 04-04-2023 11:37-0400 Diastolic blood pressure 79 mm[Hg] Dr. Daija Morton Work Phone: 0(652)423-862747 [place] [address] 04-04-2023 11:37-0400 Heart rate 44 /min Dr. Daija Morton Work Phone: 7(716)707-883547 [place] [address] 04-04-2023 11:37-0400 Systolic blood pressure 188 mm[Hg] Dr. Daija Morton Work Phone: 5(232)025-602447 [place] [address] 04-04-2023 10:02-0400 Body temperature 97.6 [degF] Dr. Daija Morton Work Phone: 5(583)943-796447 [place] [address] 04-04-2023 10:02-0400 Respiratory rate 18 /min Dr. Daija Morton Work Phone: 7(625)092-565847 [place] [address] 04-04-2023 10:02-0400 SaO2% (BldA) [Mass fraction] 92 % Dr. Daija Morton Work Phone: 6(100)583-057247 [place] [address] 04-03-2023 15:53-0400 Inhaled oxygen flow rate 2 L/min Dr. Daija Morton Work Phone: 5(080)354-331947 [place] [address] 03-31-2023 14:20-0400 Body mass index (BMI) [Ratio] 20.5 kg/m2 Dr. Daija Morton Work Phone: 6(286)597-693847 [place] [address] 03-31-2023 14:20-0400 Body weight [address] Daija Morton Work Phone: 5(471)551-773647 [place] [address] 03-31-2023 09:57-0400 Body height 175.[address] Daija Morton Work Phone: 4(815)294-658547 [place] [address] 03-30-2023 20:26-0400 Body temperature 96.7 [degF] Dr. Daija Morton Work Phone: 8(454)320-091147 [place] [address] 03-30-2023 20:26-0400 Diastolic blood pressure 78 mm[Hg] Dr. Daija Morton Work Phone: 2(829)150-207047 [place] [address] 03-30-2023 20:26-0400 Heart rate 71 /min Dr. Daija Morton Work Phone: 0(898)190-534947 [place] [address] 03-30-2023 20:26-0400 Respiratory rate 18 /min Dr. Daija Morton Work Phone: 2(929)566-082847 [place] [address] 03-30-2023 20:26-0400 SaO2% (BldA) [Mass fraction] 97 % Dr. Daija Morton Work Phone: 5(689)652-631547 [place] [address] 03-30-2023 20:26-0400 Systolic blood pressure 181 mm[Hg] Dr. Daija Morton Work Phone: 7(913)861-883447 [place] [address] 03-30-2023 14:10-0400 Body height 172.[address] Daija Morton Work Phone: 7(440)964-597047 [place] [address] 03-29-2023 19:22-0400 Body mass index (BMI) [Ratio] 21.9 kg/m2 Dr. Daija Morton Work Phone: 0(568)201-754347 [place] [address] 03-29-2023 19:22-0400 Body weight 65.[address] Daija Morton Work Phone: 6(104)530-614847 [place] [address] 03-29-2023 19:20-0400 Diastolic blood pressure 80 mm[Hg] Dr. Daija Morton Work Phone: 5(366)081-402947 [place] [address] 03-29-2023 19:20-0400 Heart rate 84 /min Dr. Daija Morton Work Phone: 3(984)106-726447 [place] [address] 03-29-2023 19:20-0400 Respiratory rate 18 /min Dr. Daija Morton Work Phone: 3(762)994-278347 [place] [address] 03-29-2023 19:20-0400 SaO2% (BldA) [Mass fraction] 92 % Dr. Daija Morton Work Phone: 2(166)961-498447 [place] [address] 03-29-2023 19:20-0400 Systolic blood pressure 195 mm[Hg] Dr. Daija Morton Work Phone: 3(001)665-064847 [place] [address] 03-29-2023 18:17-0400 Body temperature 97.6 [degF] Dr. Daija Morton Work Phone: 6(309)568-569147 [place] [address] 02-25-2023 19:41-0400 Diastolic blood pressure 87 mm[Hg] Dr. Daija Morton Work Phone: 9(429)131-300947 [place] [address] 02-25-2023 19:41-0400 Heart rate 67 /min Dr. Daija Morton Work Phone: 2(726)815-218247 [place] [address] 02-25-2023 19:41-0400 Respiratory rate 15 /min Dr. Daija Morton Work Phone: 9(159)573-393547 [place] [address] 02-25-2023 19:41-0400 SaO2% (BldA) [Mass fraction] 97 % Dr. Daija Morton Work Phone: 0(945)445-411347 [place] [address] 02-25-2023 19:41-0400 Systolic blood pressure 193 mm[Hg] Dr. Daija Morton Work Phone: [facility] 02-25-2023 19:37-0400 Body mass index (BMI) [Ratio] 22.4 kg/m2 Dr. Daija Morton Work Phone: [facility] 02-25-2023 19:37-0400 Body weight 67.[address] Daija Morton Work Phone: [facility] 02-25-2023 17:22-0400 Body temperature 97 [degF] Dr. Daija Morton Work Phone: [facility] 02-18-2023 01:56-0400 Diastolic blood pressure 113 mm[Hg] [facility] 02-18-2023 01:56-0400 Heart rate 88 /min [facility] 02-18-2023 01:56-0400 Respiratory rate 16 /min [facility] 02-18-2023 01:56-0400 Systolic blood pressure 157 mm[Hg] [facility] 02-18-2023 01:00-0400 SaO2% (BldA) [Mass fraction] 98 % [facility] 02-17-2023 21:35-0400 Body mass index (BMI) [Ratio] 21.5 kg/m2 [facility] 02-17-2023 21:35-0400 Body weight 66.13 kg [facility] 02-17-2023 21:32-0400 Body height 175.26 cm [facility] 02-17-2023 21:32-0400 Body temperature 96.4 [degF] [facility] 12-31-2022 15:16-0400 Body height 173 cm [facility] 12-31-2022 15:16-0400 Body mass index (BMI) [Ratio] 21.7 kg/m2 [facility] 12-31-2022 15:16-0400 Body temperature 96.6 [degF] [facility] 12-31-2022 15:16-0400 Body weight 65.2 kg [facility] 12-31-2022 15:16-0400 Diastolic blood pressure 66 mm[Hg] [facility] 12-31-2022 15:16-0400 Heart rate 75 /min [facility] 12-31-2022 15:16-0400 Respiratory rate 15 /min [facility] 12-31-2022 15:16-0400 SaO2% (BldA) [Mass fraction] 93 % [facility] 12-31-2022 15:16-0400 Systolic blood pressure 118 mm[Hg] [facility] 12-26-2022 14:04-0400 Diastolic blood pressure 90 mm[Hg] Ryan May MD Work Phone: 12-26-2022 14:04-0400 Heart rate 50 /min Ryan May MD Work Phone: 12-26-2022 14:04-0400 Systolic blood pressure 207 mm[Hg] Ryan May MD Work Phone: 10-22-2022 21:40-0400 Diastolic Blood Pressure Non-Invasive [address] PRIYANKA FRANCO MD [facility] 10-22-2022 21:40-0400 Heart rate 88 /min DR PRIYANKA FRANCO MD [facility] 10-22-2022 21:40-0400 Respiratory rate 20 /min DR PRIYANKA FRANCO MD [facility] 10-22-2022 21:40-0400 Systolic Blood Pressure Non-Invasive [address] PRIYANKA FRANCO MD [facility] 10-22-2022 19:59-[address] PRIYANKA FRANCO MD [facility] 10-22-2022 19:59-0400 Body temperature 98.6 [degF] DR PRIYANKA FRANCO MD [facility] 10-22-2022 19:59-0400 Diastolic Blood Pressure Non-Invasive [address] PRIYANKA FRANCO MD [facility] 10-22-2022 19:59-0400 Heart rate 97 /min DR PRIYANKA FRANCO MD [facility] 10-22-2022 19:59-0400 Respiratory rate 21 /min DR PRIYANKA FRANCO MD [facility] 10-22-2022 19:59-0400 Systolic Blood Pressure Non-Invasive [address] PRIYANKA FRANCO MD [facility] 10-21-2022 18:30-0400 Body height 172.72 cm [facility] 10-21-2022 18:30-0400 Body temperature 97.5 [degF] [facility] 10-21-2022 18:30-0400 Diastolic blood pressure 88 mm[Hg] [facility] 10-21-2022 18:30-0400 Heart rate 99 /min [facility] 10-21-2022 18:30-0400 Respiratory rate 16 /min [facility] 10-21-2022 18:30-0400 SaO2% (BldA) [Mass fraction] 96 % [facility] 10-21-2022 18:30-0400 Systolic blood pressure 168 mm[Hg] [facility] 08-27-2022 10:51-0500 Diastolic blood pressure 91 mm[Hg] Daija Morton MD Work Phone: 08-27-2022 10:51-0500 Heart rate 69 /min Daija Morton MD Work Phone: 08-27-2022 10:51-0500 Systolic blood pressure 212 mm[Hg] Daija Morton MD Work Phone: 08-27-2022 10:47-0500 Body temperature 97 [degF] Daija Morton MD Work Phone: 08-27-2022 10:47-0500 Body weight 71.22 kg Daija Morton MD Work Phone: 08-27-2022 10:47-0500 Respiratory rate 28 /min Daija Morton MD Work Phone: 08-27-2022 10:47-0500 SaO2% (BldA) [Mass fraction] 95 % Daija Morton MD Work Phone: 03-10-2022 10:10-0400 Diastolic blood pressure 90 mm[Hg] Anjel Older TRANSLITERATOR.PATIENT CARE ASSOCIATE Work Phone: 03-10-2022 10:10-0400 Heart rate 88 /min Anjel Older TRANSLITERATOR.PATIENT CARE ASSOCIATE Work Phone: 03-10-2022 10:10-0400 Respiratory rate 16 /min Anjel Older TRANSLITERATOR.PATIENT CARE ASSOCIATE Work Phone: 03-10-2022 10:10-0400 Systolic blood pressure 158 mm[Hg] Anjel Older TRANSLITERATOR.PATIENT CARE ASSOCIATE Work Phone: 03-08-2022 23:13-0400 Diastolic blood pressure 93 mm[Hg] Dr. Daija Morton Work Phone: [facility] Work Phone: 03-08-2022 23:13-0400 Heart rate 71 /min Dr. Daija Morton Work Phone: [facility] Work Phone: 03-08-2022 23:13-0400 Inhaled oxygen flow rate 3 L/min Dr. Daija Morton Work Phone: [facility] Work Phone: 03-08-2022 23:13-0400 Respiratory rate 16 /min Dr. Daija Morton Work Phone: [facility] Work Phone: 03-08-2022 23:13-0400 SaO2% (BldA) [Mass fraction] 96 % Dr. Daija Morton Work Phone: [facility] Work Phone: 03-08-2022 23:13-0400 Systolic blood pressure 178 mm[Hg] Dr. Daija Morton Work Phone: [facility] Work Phone: 03-08-2022 17:31-0400 Body height 172.[address] Daija Morton Work Phone: [facility] Work Phone: 03-08-2022 17:31-0400 Body mass index (BMI) [Ratio] 20.5 kg/m2 Dr. Daija Morton Work Phone: [facility] Work Phone: 03-08-2022 17:31-0400 Body temperature 97.6 [degF] Dr. Daija Morton Work Phone: [facility] Work Phone: 03-08-2022 17:31-0400 Body weight 61.[address] Daija Morton Work Phone: [facility] Work Phone: 03-07-2022 17:28-0400 Respiratory rate 18 /min Dr. Daija Morton Work Phone: [facility] Work Phone: 03-07-2022 15:23-0400 Body height 172.[address] Daija Morton Work Phone: [facility] Work Phone: 03-07-2022 15:23-0400 Body mass index (BMI) [Ratio] 20.5 kg/m2 Dr. Daija Morton Work Phone: [facility] Work Phone: 03-07-2022 15:23-0400 Body temperature 97.4 [degF] Dr. Daija Morton Work Phone: [facility] Work Phone: 03-07-2022 15:23-0400 Body weight 61.[address] Daija Morton Work Phone: [facility] Work Phone: 03-07-2022 15:23-0400 Diastolic blood pressure 88 mm[Hg] Dr. Daija Morton Work Phone: [facility] Work Phone: 03-07-2022 15:23-0400 Heart rate 84 /min Dr. Daija Morton Work Phone: [facility] Work Phone: 03-07-2022 15:23-0400 SaO2% (BldA) [Mass fraction] 93 % Dr. Daija Morton Work Phone: [facility] Work Phone: 03-07-2022 15:23-0400 Systolic blood pressure 193 mm[Hg] Dr. Daija Morton Work Phone: [facility] Work Phone: 03-02-2022 19:05-0400 Diastolic blood pressure 81 mm[Hg] Dr. Daija Morton Work Phone: [facility] Work Phone: 03-02-2022 19:05-0400 Heart rate 56 /min Dr. Daija Morton Work Phone: [facility] Work Phone: 03-02-2022 19:05-0400 Respiratory rate 18 /min Dr. Daija Morton Work Phone: [facility] Work Phone: 03-02-2022 19:05-0400 SaO2% (BldA) [Mass fraction] 92 % Dr. Daija Morton Work Phone: [facility] Work Phone: 03-02-2022 19:05-0400 Systolic blood pressure 209 mm[Hg] Dr. Daija Morton Work Phone: [facility] Work Phone: 03-02-2022 17:41-0400 Body temperature 97.5 [degF] Dr. Daija Morton Work Phone: [facility] Work Phone: 03-02-2022 15:10-0400 Body height 172.[address] Daija Morton Work Phone: [facility] Work Phone: 03-02-2022 15:10-0400 Body mass index (BMI) [Ratio] 23.5 kg/m2 Dr. Daija Morton Work Phone: [facility] Work Phone: 03-02-2022 15:10-0400 Body weight 70.[address] Daija Morton Work Phone: [facility] Work Phone: 01-31-2022 13:59-0400 Body height 172.7 cm Ryan May MD Work Phone: 01-31-2022 13:59-0400 Body weight 68.49 kg Ryan May MD Work Phone: 01-31-2022 13:59-0400 Diastolic blood pressure 99 mm[Hg] Ryan May MD Work Phone: 01-31-2022 13:59-0400 Systolic blood pressure 168 mm[Hg] Ryan May MD Work Phone: 01-28-2022 15:53-0400 Diastolic blood pressure 88 mm[Hg] Dr. Daija Morton Work Phone: [facility] Work Phone: 01-28-2022 15:53-0400 Heart rate 54 /min Dr. Daija Morton Work Phone: [facility] Work Phone: 01-28-2022 15:53-0400 Respiratory rate 20 /min Dr. Daija Morton Work Phone: [facility] Work Phone: 01-28-2022 15:53-0400 SaO2% (BldA) [Mass fraction] 97 % Dr. Daija Morton Work Phone: [facility] Work Phone: 01-28-2022 15:53-0400 Systolic blood pressure 200 mm[Hg] Dr. Daija Morton Work Phone: [facility] Work Phone: 01-28-2022 14:03-0400 Body height 172.[address] Daija Morton Work Phone: [facility] Work Phone: 01-28-2022 14:03-0400 Body mass index (BMI) [Ratio] 22.9 kg/m2 Dr. Daija Morton Work Phone: [facility] Work Phone: 01-28-2022 14:03-0400 Body temperature 96.8 [degF] Dr. Daija Morton Work Phone: [facility] Work Phone: 01-28-2022 14:03-0400 Body weight 68.[address] Daija Morton Work Phone: [facility] Work Phone: 01-28-2022 11:41-0400 Diastolic blood pressure 92 mm[Hg] Anjel Older TRANSLITERATOR.PATIENT CARE ASSOCIATE Work Phone: 01-28-2022 11:41-0400 Heart rate 56 /min Anjel Older TRANSLITERATOR.PATIENT CARE ASSOCIATE Work Phone: 01-28-2022 11:41-0400 Systolic blood pressure 200 mm[Hg] Anjel Older TRANSLITERATOR.PATIENT CARE ASSOCIATE Work Phone: 01-28-2022 10:57-0400 Body weight 68.49 kg Anjel Older TRANSLITERATOR.PATIENT CARE ASSOCIATE Work Phone: 01-28-2022 10:57-0400 Respiratory rate 16 /min Anjel Braga TRANSLITERATOR.PATIENT CARE ASSOCIATE Work Phone: 01-20-2022 13:23-0400 Diastolic blood pressure 102 mm[Hg] Ye Coello MD Work Phone: 01-20-2022 13:23-0400 Heart rate 61 /min Ye Coello MD Work Phone: 01-20-2022 13:23-0400 SaO2% (BldA) [Mass fraction] 94 % Ye Coello MD Work Phone: 01-20-2022 13:23-0400 Systolic blood pressure 172 mm[Hg] Ye Coello MD Work Phone: 01-14-2022 10:26-0400 Body temperature 98.2 [degF] Harriett Albert TRANSLITERATOR.COMMUNICATIONS DEPARTMENT CHAIR Work Phone: 01-14-2022 10:26-0400 Body weight 69.67 kg Harriett Albert TRANSLITERATOR.COMMUNICATIONS DEPARTMENT CHAIR Work Phone: 01-14-2022 10:26-0400 Diastolic blood pressure 80 mm[Hg] Harriett Albert TRANSLITERATOR.COMMUNICATIONS DEPARTMENT CHAIR Work Phone: 01-14-2022 10:26-0400 Heart rate 78 /min Harriett Albert TRANSLITERATOR.COMMUNICATIONS DEPARTMENT CHAIR Work Phone: 01-14-2022 10:26-0400 Respiratory rate 16 /min Harriett Albert TRANSLITERATOR.COMMUNICATIONS DEPARTMENT CHAIR Work Phone: 01-14-2022 10:26-0400 SaO2% (BldA) [Mass fraction] 95 % Harriett Albert TRANSLITERATOR.COMMUNICATIONS DEPARTMENT CHAIR Work Phone: 01-14-2022 10:26-0400 Systolic blood pressure 186 mm[Hg] Harriett Albert TRANSLITERATOR.COMMUNICATIONS DEPARTMENT CHAIR Work Phone: 11-30-2021 15:02-0400 Heart rate 75 /min Dr. Daija Morton Work Phone: [facility] Work Phone: 11-30-2021 15:02-0400 Respiratory rate 17 /min Dr. Daija Morton Work Phone: [facility] Work Phone: 11-30-2021 13:57-0400 Body temperature 97.4 [degF] Dr. Daija Morton Work Phone: [facility] Work Phone: 11-30-2021 13:57-0400 Diastolic blood pressure 67 mm[Hg] Dr. Daija Morton Work Phone: [facility] Work Phone: 11-30-2021 13:57-0400 SaO2% (BldA) [Mass fraction] 93 % Dr. Daija Morton Work Phone: [facility] Work Phone: 11-30-2021 13:57-0400 Systolic blood pressure 161 mm[Hg] Dr. Daija Morton Work Phone: [facility] Work Phone: 11-30-2021 11:25-0400 Inhaled oxygen flow rate 3 L/min Dr. Daija Morton Work Phone: [facility] Work Phone: 11-29-2021 12:48-0400 Body height 172.[address] Daija Morton Work Phone: [facility] Work Phone: 11-29-2021 12:48-0400 Body weight 71.[address] Daija Morton Work Phone: [facility] Work Phone: 11-27-2021 05:25-0400 Body mass index (BMI) [Ratio] 24 kg/m2 Dr. Daija Morton Work Phone: [facility] Work Phone: 11-25-2021 21:36-0400 Body temperature 97.8 [degF] Dr. Daija Morton Work Phone: [facility] Work Phone: 11-25-2021 21:36-0400 Diastolic blood pressure 40 mm[Hg] Dr. Daija Morton Work Phone: [facility] Work Phone: 11-25-2021 21:36-0400 Heart rate 66 /min Dr. Daija Morton Work Phone: [facility] Work Phone: 11-25-2021 21:36-0400 Respiratory rate 16 /min Dr. Daija Morton Work Phone: [facility] Work Phone: 11-25-2021 21:36-0400 SaO2% (BldA) [Mass fraction] 96 % Dr. Daija Morton Work Phone: [facility] Work Phone: 11-25-2021 21:36-0400 Systolic blood pressure 133 mm[Hg] Dr. Daija Morton Work Phone: [facility] Work Phone: 11-25-2021 17:29-0400 Body height 172.[address] Daija Morotn Work Phone: [facility] Work Phone: 11-25-2021 17:29-0400 Body mass index (BMI) [Ratio] 24.7 kg/m2 Dr. Daija Morton Work Phone: [facility] Work Phone: 11-25-2021 17:29-0400 Body weight 73.[address] Daija Morton Work Phone: [facility] Work Phone: 11-16-2021 14:37-0400 Body height 172.7 cm Estephaniajuice Pierre TRANSLITERATOR.PATIENT CARE ASSOCIATE Work Phone: 11-16-2021 14:37-0400 Body weight 71.67 kg Estephania Ignacio TRANSLITERATOR.PATIENT CARE ASSOCIATE Work Phone: 11-16-2021 14:37-0400 Diastolic blood pressure 68 mm[Hg] Estephania Pierre TRANSLITERATOR.PATIENT CARE ASSOCIATE Work Phone: 11-16-2021 14:37-0400 Heart rate 64 /min Estephaniajuice Pierre TRANSLITERATOR.PATIENT CARE ASSOCIATE Work Phone: 11-16-2021 14:37-0400 SaO2% (BldA) [Mass fraction] 100 % Estephaniajuice Pierre TRANSLITERATOR.PATIENT CARE ASSOCIATE Work Phone: 11-16-2021 14:37-0400 Systolic blood pressure 162 mm[Hg] Estephaniajuice Pierre TRANSLITERATOR.PATIENT CARE ASSOCIATE Work Phone: 11-08-2021 12:50-0400 Heart rate 73 /min [facility]str Work Phone: 11-08-2021 12:50-0400 Respiratory rate 14 /min [facility] Work Phone: 11-08-2021 12:50-0400 SaO2% (BldA) [Mass fraction] 97 % [facility] Work Phone: 11-05-2021 11:22-0400 Body weight 70.31 kg Emilie Shania PA-C Work Phone: 11-05-2021 11:22-0400 Diastolic blood pressure 68 mm[Hg] Emilie Shania PA-C Work Phone: 11-05-2021 11:22-0400 Heart rate 71 /min Emilie Shania PA-C Work Phone: 11-05-2021 11:22-0400 Respiratory rate 20 /min Emilie Shania PA-C Work Phone: 11-05-2021 11:22-0400 SaO2% (BldA) [Mass fraction] 99 % Emilie Shania PA-C Work Phone: 11-05-2021 11:22-0400 Systolic blood pressure 140 mm[Hg] Emilie Shania PA-C Work Phone: 10-21-2021 11:30-0400 Diastolic blood pressure 65 mm[Hg] Mi Nurse Work Phone: 10-21-2021 11:30-0400 Heart rate 81 /min Mi Nurse Work Phone: 10-21-2021 11:30-0400 Systolic blood pressure 155 mm[Hg] Mi Nurse Work Phone: 10-13-2021 13:00-0400 Body height 172.7 cm Ye Coello MD Work Phone: 10-13-2021 13:00-0400 Body weight 71.67 kg Ye Coello MD Work Phone: 10-13-2021 13:00-0400 Diastolic blood pressure 93 mm[Hg] Ye Coello MD Work Phone: 10-13-2021 13:00-0400 Heart rate 66 /min Ye Coello MD Work Phone: 10-13-2021 13:00-0400 Systolic blood pressure 217 mm[Hg] Ye Coello MD Work Phone: 10-08-2021 17:14-0400 Diastolic blood pressure 62 mm[Hg] Dr. Daija Morton Work Phone: [facility] Work Phone: 10-08-2021 17:14-0400 Heart rate 58 /min Dr. Daija Morton Work Phone: [facility] Work Phone: 10-08-2021 17:14-0400 Respiratory rate 18 /min Dr. Daija Morton Work Phone: [facility] Work Phone: 10-08-2021 17:14-0400 SaO2% (BldA) [Mass fraction] 98 % Dr. Daija Morton Work Phone: [facility] Work Phone: 10-08-2021 17:14-0400 Systolic blood pressure 149 mm[Hg] Dr. Daija Morton Work Phone: [facility] Work Phone: 10-08-2021 14:12-0400 Body height 172.[address] Daija Morton Work Phone: [facility] Work Phone: 10-08-2021 14:12-0400 Body mass index (BMI) [Ratio] 24.7 kg/m2 Dr. Daija Morton Work Phone: [facility] Work Phone: 10-08-2021 14:12-0400 Body temperature 98.1 [degF] Dr. Daija Morton Work Phone: [facility] Work Phone: 10-08-2021 14:12-0400 Body weight 73.[address] Daija Morton Work Phone: [facility] Work Phone: 10-07-2021 11:17-0400 Body temperature 97.59 [degF] Anjel Older TRANSLITERATOR.PATIENT CARE ASSOCIATE Work Phone: 10-07-2021 11:17-0400 Body weight 70.31 kg Anjel Older TRANSLITERATOR.PATIENT CARE ASSOCIATE Work Phone: 10-07-2021 11:17-0400 Diastolic blood pressure 90 mm[Hg] Anjel Older TRANSLITERATOR.PATIENT CARE ASSOCIATE Work Phone: 10-07-2021 11:17-0400 Heart rate 67 /min Anjel Older TRANSLITERATOR.PATIENT CARE ASSOCIATE Work Phone: 10-07-2021 11:17-0400 Respiratory rate 12 /min Anjel Older TRANSLITERATOR.PATIENT CARE ASSOCIATE Work Phone: 10-07-2021 11:17-0400 SaO2% (BldA) [Mass fraction] 96 % Anjel Older TRANSLITERATOR.PATIENT CARE ASSOCIATE Work Phone: 10-07-2021 11:17-0400 Systolic blood pressure 178 mm[Hg] Anjel Older TRANSLITERATOR.PATIENT CARE ASSOCIATE Work Phone: 09-29-2021 16:20-0400 Body temperature 98.24 [degF] DR PRIYANKA FRANCO MD [facility] 09-29-2021 16:20-0400 Diastolic blood pressure 91 mm[Hg] DR PRIYANKA FRANCO MD [facility] 09-29-2021 16:20-0400 Heart rate 80 /min DR PRIYANKA FRANCO MD [facility] 09-29-2021 16:20-0400 Respiratory rate 18 /min DR PRIYANKA FRANCO MD [facility] 09-29-2021 16:20-0400 Systolic blood pressure 189 mm[Hg] DR PRIYANKA FRANCO MD [facility] 09-17-2021 20:16-0400 Body temperature 97.3 [degF] Dr. Daija Morton Work Phone: [facility] Work Phone: 09-17-2021 20:16-0400 Diastolic blood pressure 80 mm[Hg] Dr. Daija Morton Work Phone: [facility] Work Phone: 09-17-2021 20:16-0400 Heart rate 85 /min Dr. Daija Morton Work Phone: [facility] Work Phone: 09-17-2021 20:16-0400 Respiratory rate 17 /min Dr. Daija Morton Work Phone: [facility] Work Phone: 09-17-2021 20:16-0400 SaO2% (BldA) [Mass fraction] 96 % Dr. Daija Morton Work Phone: [facility] Work Phone: 09-17-2021 20:16-0400 Systolic blood pressure 171 mm[Hg] Dr. Daija Morton Work Phone: [facility] Work Phone: 09-17-2021 16:56-0400 Body height 172.[address] Daija Morton Work Phone: [facility] Work Phone: 09-17-2021 16:56-0400 Body mass index (BMI) [Ratio] 23.7 kg/m2 Dr. Daija Morton Work Phone: [facility] Work Phone: 09-17-2021 16:56-0400 Body weight 70.[address] Daija Morton Work Phone: [facility] Work Phone: 09-15-2021 17:40-0400 Diastolic blood pressure 73 mm[Hg] Anjel Older TRANSLITERATOR.PATIENT CARE ASSOCIATE Work Phone: 09-15-2021 17:40-0400 Systolic blood pressure 170 mm[Hg] Anjel Older TRANSLITERATOR.PATIENT CARE ASSOCIATE Work Phone: 09-15-2021 16:57-0400 Body weight 71.22 kg Anjel Older TRANSLITERATOR.PATIENT CARE ASSOCIATE Work Phone: 09-15-2021 16:57-0400 Heart rate 68 /min Anjel Older TRANSLITERATOR.PATIENT CARE ASSOCIATE Work Phone: 09-15-2021 16:57-0400 Respiratory rate 16 /min Anjel Older TRANSLITERATOR.PATIENT CARE ASSOCIATE Work Phone: 09-15-2021 16:18-0400 Body height 172.7 cm Kaye Ortega MD Work Phone: 09-15-2021 16:18-0400 Body temperature 97.39 [degF] Kaye Ortega MD Work Phone: 09-15-2021 16:18-0400 Body weight 71.67 kg Kaye Ortega MD Work Phone: 09-15-2021 16:18-0400 Diastolic blood pressure 72 mm[Hg] Kaye Ortega MD Work Phone: 09-15-2021 16:18-0400 Heart rate 78 /min Kaye Ortega MD Work Phone: 09-15-2021 16:18-0400 SaO2% (BldA) [Mass fraction] 96 % Kaye Ortega MD Work Phone: 09-15-2021 16:18-0400 Systolic blood pressure 138 mm[Hg] Kaye Ortega MD Work Phone: 08-21-2021 09:30-0500 Body temperature 97.6 [degF] Dr. Daija Morton Work Phone: [facility] Work Phone: 08-21-2021 09:30-0500 Diastolic blood pressure 69 mm[Hg] Dr. Daija Morton Work Phone: [facility] Work Phone: 08-21-2021 09:30-0500 Heart rate 61 /min Dr. Daija Morton Work Phone: [facility] Work Phone: 08-21-2021 09:30-0500 Inhaled oxygen flow rate 3 L/min Dr. Daija Morton Work Phone: [facility] Work Phone: 08-21-2021 09:30-0500 Respiratory rate 18 /min Dr. Daija Morton Work Phone: [facility] Work Phone: 08-21-2021 09:30-0500 SaO2% (BldA) [Mass fraction] 98 % Dr. Daija Morton Work Phone: [facility] Work Phone: 08-21-2021 09:30-0500 Systolic blood pressure 183 mm[Hg] Dr. Daija Morton Work Phone: [facility] Work Phone: 08-21-2021 08:30-0500 Body temperature 97.6 [degF] Dr. Daija Morton Work Phone: [facility] Work Phone: 08-21-2021 08:30-0500 Diastolic blood pressure 69 mm[Hg] Dr. Daija Morton Work Phone: [facility] Work Phone: 08-21-2021 08:30-0500 Heart rate 61 /min Dr. Daija Morton Work Phone: [facility] Work Phone: 08-21-2021 08:30-0500 Respiratory rate 18 /min Dr. Daija Morton Work Phone: [facility] Work Phone: 08-21-2021 08:30-0500 SaO2% (BldA) [Mass fraction] 98 % Dr. Daija Morton Work Phone: [facility] Work Phone: 08-21-2021 08:30-0500 Systolic blood pressure 183 mm[Hg] Dr. Daija Morton Work Phone: [facility] Work Phone: 08-20-2021 06:18-0500 Body mass index (BMI) [Ratio] 23.7 kg/m2 Dr. Daija Morton Work Phone: [facility] Work Phone: 08-20-2021 06:18-0500 Body weight [address] Daija Morton Work Phone: [facility] Work Phone: 08-20-2021 05:18-0500 Body mass index (BMI) [Ratio] 23.7 kg/m2 Dr. Daija Morton Work Phone: [facility] Work Phone: 08-20-2021 05:18-0500 Body weight [address] Daija Morton Work Phone: [facility] Work Phone: 08-12-2021 03:26-0500 Diastolic blood pressure 89 mm[Hg] Dr. Daija Morton Work Phone: [facility] Work Phone: 08-12-2021 03:26-0500 Heart rate 70 /min Dr. Daija Morton Work Phone: [facility] Work Phone: 08-12-2021 03:26-0500 Respiratory rate 18 /min Dr. Daija Morton Work Phone: [facility] Work Phone: 08-12-2021 03:26-0500 SaO2% (BldA) [Mass fraction] 93 % Dr. Daija Morton Work Phone: [facility] Work Phone: 08-12-2021 03:26-0500 Systolic blood pressure 211 mm[Hg] Dr. Daija Morton Work Phone: [facility] Work Phone: 08-11-2021 23:32-0500 Body mass index (BMI) [Ratio] 24.8 kg/m2 Dr. Daija Morton Work Phone: [facility] Work Phone: 08-11-2021 23:32-0500 Body temperature 97.5 [degF] Dr. Daija Morton Work Phone: [facility] Work Phone: 08-11-2021 23:32-0500 Body weight 74.[address] Daija Morton Work Phone: [facility] Work Phone: 06-12-2021 15:55-0500 Diastolic blood pressure 81 mm[Hg] Dr. Daija Morton Work Phone: [facility] Work Phone: 06-12-2021 15:55-0500 Heart rate 61 /min Dr. Daija Morton Work Phone: [facility] Work Phone: 06-12-2021 15:55-0500 Systolic blood pressure 182 mm[Hg] Dr. Daija Morton Work Phone: [facility] Work Phone: 06-12-2021 15:15-0500 Body mass index (BMI) [Ratio] 24.6 kg/m2 Dr. Daija Morton Work Phone: [facility] Work Phone: 06-12-2021 15:15-0500 Body temperature 96.8 [degF] Dr. Daija Morton Work Phone: [facility] Work Phone: 06-12-2021 15:15-0500 Body weight 73.[address] Daija Morton Work Phone: [facility] Work Phone: 06-12-2021 15:15-0500 Respiratory rate 18 /min Dr. Daija Morton Work Phone: [facility] Work Phone: 06-12-2021 15:15-0500 SaO2% (BldA) [Mass fraction] 96 % Dr. Daija Morton Work Phone: [facility] [facility] Work Phone: 06-04-2021 23:37-0500 Respiratory rate 18 /min Dr. Daija Morton Work Phone: [facility] Work Phone: 06-04-2021 22:01-0500 Body mass index (BMI) [Ratio] 23.6 kg/m2 Dr. Daija Morton Work Phone: [facility] Work Phone: 06-04-2021 22:01-0500 Body temperature 97.1 [degF] Dr. Daija Morton Work Phone: [facility] Work Phone: 06-04-2021 22:01-0500 Body weight 70.[address] Daija Morton Work Phone: [facility] Work Phone: 06-04-2021 22:01-0500 Diastolic blood pressure 99 mm[Hg] Dr. Daija Morton Work Phone: [facility] Work Phone: 06-04-2021 22:01-0500 Heart rate 87 /min Dr. Daija Morton Work Phone: [facility] Work Phone: 06-04-2021 22:01-0500 SaO2% (BldA) [Mass fraction] 97 % Dr. Daija Morton Work Phone: [facility] Work Phone: 06-04-2021 22:01-0500 Systolic blood pressure 202 mm[Hg] Dr. Daija Morton Work Phone: [facility] Work Phone: Encounters Encounter Date Encounter Type Care Provider Facility Start: 03-18-2025 End: 03-18-2025 Emergency department patient visit MAGDALENE POWELL DO [facility] Start: 03-14-2025 End: 03-14-2025 ambulatory Efewongbe Oleghe Facility:[facility] Start: 03-14-2025 End: 03-14-2025 Emergency department patient visit Efroeongbe Suzye Facility:[facility] Start: 03-13-2025 End: 03-13-2025 ambulatory Josefa Doss RELEASE MANAGER Facility:[facility] Start: 03-11-2025 ambulatory Efewongbe Oleghe OLS Fa cility:[facility] Start: 03-04-2025 ambulatory Efewongbe Oleghe Facili ty:[facility] Start: 02-25-2025 ambulatory Efewongbe Oleghe OLS Fa cility:[facility] Start: 02-24-2025 End: 02-24-2025 ambulatory Josefa Doss RELEASE MANAGER Facility:[facility] Start: 02-18-2025 ambulatory Efewongbe Oleghe OLS Fa cility:[facility] Start: 02-18-2025 Lorraine Ashton - [place] Start: 02-11-2025 ambulatory Efewongbe Oleghe OLS Fa cility:[facility] Start: 02-11-2025 Lorraine Ashton - [place] Start: 02-09-2025 ambulatory Efewongbe Oleghe OLS Fa cility:[facility] Start: 02-09-2025 Lorraine Ashton - [place] Start: 02-04-2025 End: 02-04-[address] Daija Morton MD Work Phone: -[facility] Start: 02-04-2025 End: 02-04-2025 Josefa Doss RELEASE MANAGER-C -[facility] Work Phone: Start: 02-03-2025 ambulatory Efewongbe Oleghe OLS Fa cility:[facility] Start: 02-03-2025 Lorraine Johns Start: 01-27-2025 ambulatory Efml Mena OLS Fa cility:[facility] Start: 01-27-2025 Lorraine Johns Start: 01-23-2025 End: 01-23-2025 Hannah Busch RELEASE MANAGERAshtyn -[facility] Work Phone: Start: 01-23-2025 End: 01-23-[address] Daija Morton MD Work Phone: -[facility] Start: 01-21-2025 End: 01-21-2025 Mackenzie SALDIVAR -[facility] Work Phone: Start: 01-21-2025 End: 01-21-[address] Daija Morton MD Work Phone: -[facility] Start: 01-20-2025 ambulatory Lorraine RAIN Fa cility:[facility] Start: 01-20-2025 Lorraine Johns Start: 01-17-2025 End: 01-17-2025 Refill Daija Morton MD Work Phone: [facility] [place] Comment on above: Refill Request Start: 01-13-2025 ambulatory Lorraine RAIN Fa cility:[facility] Start: 01-13-2025 Lorraine Johns Start: 01-09-2025 End: 01-09-[address] Daija Morton MD Work Phone: -[facility] Start: 01-09-2025 End: 01-09-2025 Josefa CORTEZ -[facility] Work Phone: Start: 01-08-2025 Dr. [facility] Work Phone: Start: 01-07-2025 Dr. [facility] Work [facility]: Start: 01-07-2025 Paulino Pittsburgh DO -[facility] Start: 01-06-2025 ambulatory Lorraine Mena Facili ty:[facility] Start: 01-06-2025 Paulino Friend DO -[facility] Start: 01-05-2025 End: 01-05-2025 ambulatory Efml Almontee Facility:[facility] Start: 01-05-2025 End: 01-05-2025 Dr. Geronimo Downey MD -[place] [facility] Work Phone: Start: 01-05-2025 Paulino Pittsburgh DO -[facility] Start: 01-05-2025 End: 01-08-2025 ambulatory [...] ambulatory Dr. Daija Morton MD Work Phone: -[facility] Start: 12-31-2024 End: 12-31-2024 Dr. Lorraine Mena MD -[facility] Work Phone: Start: 12-31-2024 ambulatory Lorraine Mena OLS Fa cility:[facility] Start: 12-31-2024 Lorraine Mena MD [facility] Start: 12-30-2024 ambulatory Lorraine Mena OLS Fa cility:[facility] Start: 12-30-2024 Lorraine Mena MD -[facility] [place] Start: 12-27-2024 End: 12-27-[address] Daija Morton MD Work Phone: -[facility] Start: 12-27-2024 End: 12-27-2024 Josefa Doss RELEASE MANAGER-C -[facility] Work Phone: Start: 12-26-2024 End: 12-26-2024 Follow-up encounter Anjel Omi YANGN.PATIENT CARE ASSOCIATE Work Phone: [facility] [place] Start: 12-26-2024 Dr. Shilpa edwards MD -[facility] Work Phone: Start: 12-25-2024 Dr. Shilpa edwards MD -[facility] Work Phone: Start: 12-24-2024 Paulinojoann Henderson [facility] Start: 12-24-2024 Dr. Shilpa edwards MD -[facility] Work Phone: Start: 12-23-2024 Paulino [facility] Start: 12-23-2024 [facility] Start: 12-23-2024 Dr. Raul Jensen MD -[facility] -[facility] Start: 12-23-2024 Dr. Shilpa edwards MD -[facility] Work Phone: Start: 12-22-2024 Dr. Lisha Talamantes DO -[facility] Work Phone: Start: 12-21-2024 Dr. Lisha Talamantes DO -[facility] Work Phone: Start: 12-20-2024 Dr. Lisha Talamantes DO -[facility] Work Phone: Start: 12-19-2024 Dr. Lisha Talamantes DO -[facility] Work Phone: Start: 12-18-2024 ambulatory [facility] Start: 12-18-2024 End: 12-26-2024 Evaluation and management of inpatient Dr. Daija Morton MD Work Phone: -Pro[facility] Care Unit Start: 12-18-2024 End: 12-26-2024 Dr. Shilpa Contreras MD -[facility] Work Phone: Start: 12-18-2024 ambulatory Milton Guajardo Facility:[facility] Start: 12-18-2024 Dr. Milton Guajardo MD -[facility] Start: 12-17-[address] Germain Morton MD Work Phone: -[facility] Start: 12-17-2024 Dr. Roman Patel DO -[facility] Work Phone: Start: 12-17-2024 End: 12-20-2024 ambulatory Daija Morton MD Work Phone: Internal [facility] [place] [id number] Start: 12-17-2024 End: 12-24-2024 Telephone encounter Daija Morton MD Work Phone: [facility] [place] Comment on above: Patient Update Start: 12-16-2024 End: 12-17-2024 Refill Daija Morton MD Work Phone: [facility] [place] Comment on above: Refill Request SOB (shortness of br eath) (Primary Dx) Start: 12-16-2024 Dr. Lisha Talamantes DO -[facility] Work Phone: Start: 12-15-2024 Dr. Lisha Talamantes DO -[facility] Work Phone: Start: 12-14-2024 Dr. Lisha Talamantes DO -[facility] Work Phone: Start: 12-13-2024 Non-patient / Non-visit Dr. Kisha Contreras MD -[facility] Work Phone: Start: 12-13-2024 End: [...] 12-12-2024 Subsequent hospital visit by physician Xr [facility] [place] Work Phone: Radiology Comment on above: Wheezing [R06.2] Start: 12-12-2024 End: 12-12-2024 ambulatory [facility] Facility:[facility] Start: 12-12-2024 End: 12-12-2024 Office outpatient visit 25 minutes Anjel Braga APRN.CNP Work Phone: [facility] [place] Comment on above: Other emphysema (HCC ) (Primary Dx); Smoker; Wheezing; Lower abdominal tenderness; Loose stools; On home oxygen therapy; Primary hypertension; Left leg pain; Falls; Weakness Start: 12-12-2024 End: 12-12-2024 ambulatory [facility] Facility:[facility] Start: 12-09-2024 End: 12-09-2024 Telephone encounter Daija Morton MD Work Phone: [facility] [place] Comment on above: Home Care Management ; Patient Update Start: 12-06-2024 End: 12-06-2024 Telephone encounter Daija Morton MD Work Phone: [facility] [place] Comment on above: [facility] update Start: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 [facility] Provider Start: 09-15-2021 Urnls dip stick/tablet rgnt auto w/o microscopy Anjel Older TRANSLITERATOR.PATIENT CARE ASSOCIATE Work Phone: Start: 08-20-2021 Computerized tomography guidance [...] on above: Performed By: #### TSCR ####[place] [id number] Start: 10-17-2019 Antibody screen Comment on above: Performed By: #### TSCR ####[place] [id number] Start: 10-08-2019 Electrocardiogram Start: 10-08-2019 Antibody screen Comment on above: Performed By: #### TSCR ####[place] [id number] Start: 09-12-2019 Antibody screen Comment on above: Performed By: #### [id number] #### [place] [id number] Start: 03-19-2019 Lipid 1996 panel - Serum or Plasma Anjel pantoja APRN.PATIENT CARE ASSOCIATE Work Phone: Start: 06-25-[address] PRIYANKA [...] Detail Author Start: 06-04-2031 Urine microalbumin profile [facility] Start: 12-13-2027 Diabetes Screening Diabetes Screening Start: 11-27-2026 Colonoscopy COLONOSCOPY Start: 11-27-2026 COLORECTAL CANCER SCREENING COLORECTAL CANCER SCREENING Start: 11-27-2026 Screening for malignant neoplasm of colon Start: 12-12-2025 Annual PCP Team Chronic Disease Visit Annual PCP Team Chronic Disease Visit Start: 02-17-2025 Influenza vaccination Start: 02-04-2025 DIABETES SCREEN DIABETES SCREEN Start: 02-04-2025 Diabetes Screening Diabetes Screening Start: 01-08-2025 Patient discharge [facility] Start: 01-08-2025 [facility] Start: 01-07-2025 Referral to occupational therapist [facility] Start: 01-07-2025 Referral to service [facility] Start: 01-05-2025 Contact precautions [facility] Start: 01-05-2025 Referral to gastroenterology service [facility] Start: 01-05-2025 Following clinical pathway protocol [facility] Start: 01-05-2025 Ambulation without limitation [facility] Start: 01-05-2025 Assessment of risk of venous thromboembolism [facility] Start: 01-05-2025 Elevation of head of bed [facility] Start: 01-05-2025 Inhalation therapy procedure [facility] Start: 01-05-2025 Insertion of catheter into peripheral vein [facility] Start: 01-05-2025 Measuring intake and output [facility] Start: 01-05-2025 Oxygen therapy [facility] Start: 01-05-2025 Patient education [facility] Start: 01-05-2025 Providing care according to standard [facility] Start: 01-05-2025 End: 01-05-2025 [facility] Start: 01-05-2025 Blood culture [facility] Start: 01-05-2025 Bacteria identified in Sputum by Culture [facility] Start: 01-05-2025 Legionella pneumophila Ag [Presence] in Urine [facility] Start: 01-05-2025 Streptococcus pneumoniae antigen assay [facility] Start: 01-05-2025 Verification routine [facility] Start: 01-05-2025 Hospital admission, emergency, from emergency room, medical nature [facility] Start: 01-05-2025 Admission procedure [facility] Start: 01-05-2025 Patient referral to dietitian [facility] Start: 01-05-2025 [facility] Start: 01-03-2025 Emergency dept visit high severity&threat funcj [facility] Start: 01-03-2025 [facility] Start: 01-01-2025 End: 01-01-2025 Patient encounter procedure 01/01/2025 2:00 PM EDT Office Visit [facility] [place] [address] [place] [address] Anjel Braga APRN.[facility] [address] [place], [place] [id number] 2 week follow up [facility] [place] Comment on above: 2 week follow up Start: 12-26-2024 Patient discharge [facility] Start: 12-26-2024 Care planning and problem solving actions [facility] Start: 12-25-2024 End: 12-25-2024 Patient encounter procedure 12/25/2024 1:00 PM EDT Office Visit Pulmonary Medicine [address] [id number] Priscilla Barillas MD [address] [place] [address] Other emphysema (HCC) [J43.8]; Smoker [F17.200] Pulmonary Medicine Comment on above: Other emphysema (HCC) [J43.8]; Smoker [F 17.200] Start: 12-25-2024 End: 12-25-2024 ambulatory Pulmonary Medicine Comment on above: Other emphysema (HCC) [J43.8]; Smoker [F 17.200] * Other emphysema (H CC) [J43.8]; Smoker [F17.200] Start: 12-22-2024 [facility] Start: 12-22-2024 Electroencephalogram [facility] Start: 12-19-2024 Referral to gastroenterology service [facility] Start: 12-18-2024 Admission procedure [facility] Start: 12-18-2024 Contact precautions [facility] Start: 12-18-2024 Inhalation therapy procedure [facility] Start: 12-17-2024 Following clinical pathway protocol [facility] Start: 12-17-2024 Application of intermittent pneumatic compression device [facility] Start: 12-17-2024 Aspiration precautions [facility] Start: 12-17-2024 Assessment of risk of venous thromboembolism [facility] Start: 12-17-2024 Cardiac monitoring [facility] Start: 12-17-2024 Catheterization of vein [facility] Start: 12-17-2024 Consultation [facility] Start: 12-17-2024 Elevation of head of bed [facility] Start: 12-17-2024 Exercises [facility] Start: 12-17-2024 Insertion of catheter into peripheral vein [facility] Start: 12-17-2024 Notification of physician [facility] Start: 12-17-2024 Oxygen therapy [facility] Start: 12-17-2024 Patient referral to dietitian [facility] Start: 12-17-2024 Providing care according to standard [facility] Start: 12-17-2024 Referral to occupational therapist [facility] Start: 12-17-2024 Referral to service [facility] Start: 12-17-2024 Speech therapy assessment [facility] Start: 12-17-2024 Tobacco use cessation education [facility] Start: 12-17-2024 Vital signs measurements [facility] Start: 12-17-2024 End: 12-17-2024 [facility] Start: 12-17-2024 MRI of brain without contrast [facility] Start: 12-17-2024 Verification routine [facility] Start: 12-17-2024 Admission procedure [facility] Start: 12-17-2024 Hospital admission, emergency, from emergency room, medical nature [facility] Start: 12-17-2024 Partial thromboplastin time, activated [facility] Start: 12-17-2024 Prothrombin time [facility] Start: 12-17-2024 Thyroid stimulating hormone measurement [facility] Start: 12-17-2024 Oxygen therapy [facility] Start: 12-17-2024 End: 12-18-2024 [facility] Start: 12-17-2024 End: 03-18-2025 Hemoglobin A1c in Blood HEMOGLOBIN A1C Lab Routine Medication management Expected: 12/17/2024, Expires: 03/18/2025 [facility] Work Phone: Comment on above: Expected: 12/17/2024, Expires: Start: 12-17-2024 End: 03-18-2025 Lipid 1996 panel - Serum or Plasma LIPID PANEL, FASTING Lab Routine Hyperlipidemia Expected: 12/17/2024, Expires: 03/18/2025 Comment on above: Expected: 12/17/2024, Expires: Start: 12-17-2024 Consultation [facility] Start: 12-16-2024 Referral to service [facility] Start: 12-16-2024 Patient discharge [facility] Start: 12-14-2024 Referral to occupational therapist [facility] Start: 12-14-2024 Referral to service [facility] Start: 12-13-2024 Contact precautions [facility] Start: 12-13-2024 Following clinical pathway protocol [facility] Start: 12-13-2024 Assessment of risk of venous thromboembolism [facility] Start: 12-13-2024 Continuous pulse oximetry [facility] Start: 12-13-2024 Inhalation therapy procedure [facility] Start: 12-13-2024 Insertion of catheter into peripheral vein [facility] Start: 12-13-2024 Introduction of urinary catheter [facility] Start: 12-13-2024 Measuring intake and output [facility] Start: 12-13-2024 Oxygen therapy [facility] [facility] Start: 12-13-2024 Providing care according to standard [facility] Start: 12-13-2024 Provision of activity privileges [facility] Start: 12-13-2024 Tobacco use cessation education [facility] Start: 12-13-2024 End: 12-13-2024 [facility] Start: 12-13-2024 Dual pressure spontaneous ventilation support [facility] Start: 12-13-2024 Verification routine [facility] Start: 12-13-2024 Admission procedure [facility] Start: 12-13-2024 Hospital admission, emergency, from emergency room, medical nature [facility] Start: 12-13-2024 [facility] Start: 12-13-2024 Bacteria identified in Blood by Culture Blood Culture [facility] Start: 12-13-2024 Blood culture [facility] Start: 12-13-2024 Respiratory Panel (PCR) Respiratory Panel (PCR) [facility] Start: 12-13-2024 Consultation [facility] Start: 12-13-2024 Patient referral to dietitian [facility] Start: 12-12-2024 End: 03-13-2025 Comprehensive metabolic 2000 panel - Serum or Plasma Comment on above: Expected: 12/12/2024, Expires: Start: 12-12-2024 End: 03-13-2025 Urinalysis complete panel - Urine [facility] Work Phone: Comment on above: Expected: 12/12/2024, Expires: Start: 12-12-2024 End: 12-12-2024 Patient encounter procedure [facility] [place] Comment on above: Discharge from Nursing facility - Follow up Discharge from [facility] facility -see phone note 12/09 Start: 11-20-2024 Annual PCP Team Chronic Disease Visit Annual PCP Team Chronic Disease Visit Start: 09-03-2024 DIABETES SCREEN DIABETES SCREEN Start: 09-02-2024 Patient discharge [facility] Start: 09-01-2024 [facility] Start: 08-30-2024 Incentive spirometry [facility] Start: 08-29-2024 Consultation [facility] Start: 08-29-2024 Contact precautions [facility] Start: 08-27-2024 Application of intermittent pneumatic compression device [facility] Start: 08-27-2024 Admission procedure [facility] Start: 08-27-2024 Urine culture Urine Culture [facility] Start: 08-27-2024 [facility] Start: 08-27-2024 Oxygen therapy [facility] Start: 08-25-2024 Following clinical pathway protocol [facility] Start: 08-25-2024 Assessment of risk of venous thromboembolism [facility] Start: 08-25-2024 Inhalation therapy procedure [facility] Start: 08-25-2024 Insertion of catheter into peripheral vein [facility] Start: 08-25-2024 Measuring intake and output [facility] Start: 08-25-2024 Patient referral to dietitian [facility] Start: 08-25-2024 Providing care according to standard [facility] Start: 08-25-2024 Provision of activity privileges [facility] Start: 08-25-2024 Referral to occupational therapist [facility] Start: 08-25-2024 Referral to service [facility] Start: 08-25-2024 [facility] Start: 08-25-2024 Verification routine [facility] Start: 08-25-2024 Hospital admission, emergency, from emergency room, medical nature [facility] Start: 08-25-2024 Admission procedure [facility] Start: 08-25-2024 Enteric precautions [facility] Start: 08-25-2024 End: 08-26-2024 [facility] Start: 08-25-2024 Consultation [facility] Start: 06-19-2024 Advance Directive Discussion Advance Directive Discussion Start: 06-19-2024 Medicare Advantage Annual Wellness Visit Medicare Advantage Annual Wellness Visit Start: 06-08-2024 Annual PCP Team Chronic Disease Visit Annual PCP Team Chronic Disease Visit Start: 06-08-2024 BP Controlled (<130/80) BP Controlled (<130/80) [facility] Start: 2024 RSV Vaccine (1 - 1-dose 75+ series) RSV Vaccine (1 - 1-dose 75+ series) Start: 03-19-2024 Lipid 1996 panel - Serum or Plasma Lipid Screening Start: 03-19-2024 Lipid panel Lipid Screening Start: 03-19-2024 LIPID SCREEN LIPID SCREEN Start: 02-18-2024 Covid-19 Vaccine ( season) Covid-19 Vaccine ( season) Start: 02-18-2024 Influenza vaccination Influenza Vaccine (#1) [facility] Start: 01-02-2024 End: 01-02-2024 Patient encounter procedure [facility]ascular Lab Comment on above: PVD FOLLOW UP Start: 01-01-2024 End: 01-01-2024 Patient encounter procedure 01/01/2024 9:20 AM EDT Office Visit [facility] [address] [place] [address] Daija Morton MD [address] [place] [address] 4-6 wk follow up [facility] Comment on above: 4-6 wk follow up Start: 11-21-2023 End: 02-20-2024 CBC W Auto Differential panel - Blood COMPLETE BLOOD COUNT AND DIFFERENTIAL Lab Routine COPD with chronic bronchitis (HCC) Expected: 11/21/2023, Expires: 02/20/2024 Comment on above: Expected: 11/21/2023, Expires: Start: 11-21-2023 End: 02-20-2024 Comprehensive metabolic 2000 panel - Serum or Plasma COMPREHENSIVE METABOLIC PANEL Lab Routine Mixed hyperlipidemia Expected: 11/21/2023, Expires: 02/20/2024 Comment on above: Expected: 11/21/2023, Expires: Start: 11-21-2023 End: 02-20-2024 Hemoglobin A1c in Blood HEMOGLOBIN A1C Lab Routine Mixed hyperlipidemia Expected: 11/21/2023, Expires: 02/20/2024 [facility] Work Phone: Comment on above: Expected: 11/21/2023, Expires: Start: 11-21-2023 End: 02-20-2024 Lipid 1996 panel - Serum or Plasma LIPID PANEL BASIC Lab Routine Mixed hyperlipidemia Expected: 11/21/2023, Expires: 02/20/2024 Comment on above: Expected: 11/21/2023, Expires: Start: 11-21-2023 End: 11-21-2023 Patient encounter procedure [facility] [place] Comment on above: hospital discharge/ correction fractur e of pelvic hospital discharge/ correction fracture of pelvic(See phone encounter) Start: 11-21-2023 End: 11-21-2023 Patient encounter procedure 11/21/2023 9:40 AM EDT Office Visit [facility] [place] [address] [place] [address] Rebekah Luu PA-C [address] [place] [address] follow up usp / copd [facility] [place] Comment on above: follow up usp / copd Start: 08-28-2023 ANNUAL PCP TEAM CHRONIC DISEASE VISIT ANNUAL PCP TEAM CHRONIC DISEASE VISIT Start: 08-02-2023 Patient discharge [facility] Start: 08-01-2023 Referral to occupational therapist [facility] Start: 08-01-2023 Referral to service [facility] Start: 07-31-2023 Speech therapy assessment [facility] Start: 07-31-2023 Oxygen therapy [facility] Start: 07-31-2023 Respiratory secretion precautions [facility] Start: 07-31-2023 Following clinical pathway protocol [facility] Start: 07-31-2023 Continuous pulse oximetry [facility] Start: 07-31-2023 Physiotherapy of chest [facility] Start: 07-31-2023 Hospital admission, emergency, from emergency room, medical nature [facility] Start: 07-31-2023 Inhalation therapy procedure [facility] Start: 07-30-2023 Dual pressure spontaneous ventilation support [facility] Start: 07-30-2023 Admission procedure [facility] Start: 07-30-2023 [facility] Start: 07-26-2023 Patient discharge [facility] Start: 07-25-2023 Referral to occupational therapist [facility] Start: 07-25-2023 Referral to service [facility] Start: 07-25-2023 Inhalation therapy procedure [facility] Start: 07-24-2023 Following clinical pathway protocol [facility] Start: 07-24-2023 Assessment of risk of venous thromboembolism [facility] Start: 07-24-2023 Insertion of catheter into peripheral vein [facility] Start: 07-24-2023 Oxygen therapy [facility] Start: 07-24-2023 Providing care according to standard [facility] Start: 07-24-2023 Referral to service [facility] Start: 07-24-2023 [facility] Start: 07-24-2023 Verification routine [facility] Start: 07-24-2023 Admission procedure [facility] Start: 07-24-2023 Hospital admission, emergency, from emergency room, medical nature [facility] Start: 07-24-2023 Consultation [facility] Start: 07-24-2023 Consultation [facility] Start: 07-24-2023 Patient referral to dietitian [facility] Start: 06-19-2023 Advance Directive Discussion Advance Directive Discussion Start: 04-04-2023 Patient discharge [facility] Start: 04-03-2023 Consultation [facility] Start: 04-02-2023 Contact precautions [facility] Start: 03-30-2023 End: 03-30-2023 Following clinical pathway protocol [facility] Start: 03-30-2023 Assessment of risk of venous thromboembolism [facility] Start: 03-30-2023 Catheterization of vein [facility] Start: 03-30-2023 Inhalation therapy procedure [facility] Start: 03-30-2023 Insertion of catheter into peripheral vein [facility] Start: 03-30-2023 Oxygen therapy [facility] Start: 03-30-2023 Providing care according to standard [facility] Start: 03-30-2023 Provision of activity privileges [facility] Start: 03-30-2023 Referral to occupational therapist [facility] Start: 03-30-2023 Referral to service [facility] Start: 03-30-2023 End: 03-30-2023 [facility] Start: 03-30-2023 End: 03-30-2023 Blood culture [facility] Start: 03-30-2023 Verification routine [facility] Start: 03-30-2023 Hospital admission, emergency, from emergency room, medical nature [facility] Start: 03-30-2023 Admission procedure [facility] Start: 03-30-2023 Bacteria identified in Blood by Culture Blood Culture [facility] Start: 03-30-2023 Consultation [facility] Start: 03-30-2023 Inhalation therapy procedure [facility] Start: 03-29-2023 [facility] Start: 03-29-2023 Emergency department visit low/moder severity EMERGENCY DEPT VISIT [facility] Start: 03-10-2023 ANNUAL PCP TEAM CHRONIC DISEASE VISIT ANNUAL PCP TEAM CHRONIC DISEASE VISIT Start: 02-17-2023 Covid-19 Vaccine () Covid-19 Vaccine () Start: 02-17-2023 Influenza vaccination Start: 02-04-2023 ANNUAL PCP TEAM CHRONIC DISEASE VISIT ANNUAL PCP TEAM CHRONIC DISEASE VISIT Start: 01-28-2023 ANNUAL PCP TEAM CHRONIC DISEASE VISIT ANNUAL PCP TEAM CHRONIC DISEASE VISIT Start: 01-14-2023 SHINGRIX VACCINE (2 of 3) SHINGRIX VACCINE (2 of 3) Comment on above: Postponed from 11/19/2020 (Declined at t his time) Start: 01-03-2023 Urine microalbumin profile DTAP,TDAP,TD (2 - Td or Tdap) Start: 11-17-2022 ANNUAL PCP TEAM CHRONIC DISEASE VISIT ANNUAL PCP TEAM CHRONIC DISEASE VISIT Start: 10-26-2022 COVID-19 VACCINE (4 - Moderna series) COVID-19 VACCINE (4 - Moderna series) Start: 10-21-2022 [facility] Start: 10-07-2022 ANNUAL PCP TEAM CHRONIC DISEASE VISIT ANNUAL PCP TEAM CHRONIC DISEASE VISIT Start: 09-15-2022 ANNUAL PCP TEAM CHRONIC DISEASE VISIT ANNUAL PCP TEAM CHRONIC DISEASE VISIT Start: 06-19-2022 ADVANCE DIRECTIVE DISCUSSION ADVANCE DIRECTIVE DISCUSSION Start: 04-02-2022 ANNUAL PCP TEAM CHRONIC DISEASE VISIT ANNUAL PCP TEAM CHRONIC DISEASE VISIT Start: 03-29-2022 End: 05-29-2022 Hemoglobin A1c in Blood HGB A1C Lab Routine Medication management Expected: 03/29/2022, Expires: 05/29/2022 [facility] Work Phone: Comment on above: Expected: 03/29/2022, Expires: Start: 03-29-2022 End: 05-29-2022 Lipid 1996 panel - Serum or Plasma LIPID PANEL BASIC Lab Routine Hyperlipidemia Expected: 03/29/2022, Expires: 05/29/2022 [facility] Work Phone: Comment on above: Expected: 03/29/2022, Expires: 2 Start: 03-29-2022 End: 05-29-2022 SCHEDULE LAB TESTING SCHEDULE LAB TESTING Lab Routine Expected: 03/29/2022, Expires: 05/29/2022 [facility] Work Phone: Comment on above: Expected: 03/29/2022, Expires: 2 Start: 02-17-2022 Influenza vaccination INFLUENZA (#1) Start: 01-14-2022 End: 03-16-2022 CBC W Auto Differential panel - Blood [facility] Work Phone: Comment on above: Expected: 01/14/2022, Expires: 2 Start: 11-30-2021 Patient discharge [facility] Work Phone: Start: 11-28-2021 Care planning and problem solving actions [facility] Work Phone: Start: 11-26-2021 Administration of blood product [facility] Work Phone: Start: 11-26-2021 Catheterization of vein [facility] Work Phone: Start: 11-26-2021 Notification of physician [facility] Work Phone: Start: 11-26-2021 Referral to occupational therapist [facility] Work Phone: Start: 11-26-2021 End: 11-26-2021 Referral to service [facility] Work Phone: Start: 11-26-2021 Catheterization of vein [facility] Work Phone: Start: 11-26-2021 Following clinical pathway protocol [facility] Work Phone: Start: 11-26-2021 Inhalation therapy procedure [facility] Work Phone: Start: 11-25-2021 Assessment of risk of venous thromboembolism [facility] Work Phone: Start: 11-25-2021 Insertion of catheter into peripheral vein [facility] Work Phone: Start: 11-25-2021 Measuring intake and output [facility] Work Phone: Start: 11-25-2021 Oxygen therapy [facility] Work Phone: Start: 11-25-2021 Providing care according to standard [facility] Work Phone: Start: 11-25-2021 Provision of activity privileges [facility] Work Phone: Start: 11-25-2021 Referral to gastroenterology service [facility] Work Phone: Start: 11-25-2021 [facility] Work Phone: Start: 11-25-2021 Admission procedure [facility] Work Phone: Start: 11-25-2021 End: 11-25-2021 Administration of blood product [facility] Work Phone: Start: 11-25-2021 Patient referral to dietitian [facility] Work Phone: Start: 10-23-2021 End: 12-23-2021 PT panel - Platelet poor plasma by Coagulation assay PROTHROMBIN TIME/PT Lab Routine Anticoagulation goal of INR 2 to 3 Expected: 10/23/2021, Expires: 12/23/2021 [facility] Work Phone: Comment on above: Expected: 10/23/2021, Expires: 2 Start: 10-19-2021 End: 12-19-2021 Hemoglobin A1c/Hemoglobin.total in Blood HGB A1C Lab Routine Medication management Expected: 10/19/2021, Expires: 12/19/2021 [facility] Work Phone: Comment on above: Expected: 10/19/2021, Expires: 2 Start: 10-19-2021 End: 12-19-2021 LIPID PANEL BASIC LIPID PANEL BASIC Lab Routine Hyperlipidemia Expected: 10/19/2021, Expires: 12/19/2021 [facility] Work Phone: Comment on above: Expected: 10/19/2021, Expires: 2 Start: 10-19-2021 End: 12-19-2021 SCHEDULE LAB TESTING SCHEDULE LAB TESTING Lab Routine Expected: 10/19/2021, Expires: 12/19/2021 [facility] Work Phone: Comment on above: Expected: 10/19/2021, Expires: 2 Start: 10-17-2021 Colonoscopy COLONOSCOPY Start: 10-17-2021 COLORECTAL CANCER SCREENING COLORECTAL CANCER SCREENING Start: 09-22-2021 End: 11-22-2021 CBC W Auto Differential panel - Blood CBC + DIFF Lab Routine Anemia, unspecified type Expected: 09/22/2021, Expires: 11/22/2021 [facility] Work Phone: Comment on above: Expected: 09/22/2021, Expires: 2 Start: 09-22-2021 End: 11-22-2021 PT panel - Platelet poor plasma by Coagulation assay PROTHROMBIN TIME/PT Lab Routine Encounter for monitoring Coumadin therapy Expected: 09/22/2021, Expires: 11/22/2021 [facility] Work Phone: Comment on above: Expected: 09/22/2021, Expires: 2 Start: 08-21-2021 Patient discharge [facility] Work Phone: Start: 08-19-2021 Application of intermittent pneumatic compression device [facility] Work Phone: Start: 08-19-2021 Oxygen therapy [facility] Work Phone: Start: 08-19-2021 Tobacco use cessation education [facility] Work Phone: Start: 08-19-2021 [facility] Work Phone: Start: 08-19-2021 Care planning and problem solving actions [facility] Work Phone: Start: 08-19-2021 Administration of blood product [facility] Work Phone: Start: 08-19-2021 Referral to overhead cleaner [facility] Work Phone: Start: 08-19-2021 [facility] Work Phone: Start: 08-19-2021 Referral to occupational therapist [facility] Work Phone: Start: 08-19-2021 Referral to service [facility] Work Phone: Start: 08-19-2021 Application of intermittent pneumatic compression device [facility] Work Phone: Start: 08-19-2021 Administration of blood product [facility] Work Phone: Start: 08-19-2021 Administration of blood product [facility] Work Phone: Start: 08-19-2021 Inhalation therapy procedure [facility] Work Phone: Start: 08-18-2021 Following clinical pathway protocol [facility] Work Phone: Start: 08-18-2021 Ambulation without limitation [facility] Work Phone: Start: 08-18-2021 Assessment of risk of venous thromboembolism [facility] Work Phone: Start: 08-18-2021 Insertion of catheter into peripheral vein [facility] Work Phone: Start: 08-18-2021 Providing care according to standard [facility] Work Phone: Start: 08-18-2021 [facility] Work Phone: Start: 08-18-2021 Admission procedure [facility] Work Phone: Start: 06-19-2021 ADVANCE DIRECTIVE DISCUSSION ADVANCE DIRECTIVE DISCUSSION Start: 06-04-2021 Smpl repair scalp/neck/ax/genit/trunk 2.6-7.5cm RPR S/N/AX/GEN/TRNK2.6-7.5C M [facility] Work Phone: Start: 11-19-2020 SHINGRIX VACCINE (2 of 3) SHINGRIX VACCINE (2 of 3) Start: 11-05-2020 COVID-19 VACCINE (2 - Moderna 3-dose series) COVID-19 VACCINE (2 - Moderna 3-dose series) Start: 11-05-2020 COVID-19 VACCINE (2 - Moderna series) COVID-19 VACCINE (2 - Moderna series) Start: 03-19-2020 Hepatitis B surface antibody level LDL CHOLESTEROL Start: 11-15-2015 FECAL OCCULT BLOOD FECAL OCCULT BLOOD Start: 11-15-2015 Screening for malignant neoplasm of colon Fecal Occult Blood Start: 01-17-2014 Medicare Annual Wellness Visit Medicare Annual Wellness Visit Start: 2009 RSV Vaccine (1 - 1-dose 60+ series) RSV Vaccine (1 - 1-dose 60+ series) Start: 2009 RSV Vaccine (1 - Risk 60-74 years 1-dose series) RSV Vaccine (1 - Risk 60-74 years 1-dose series) Start: 1999 Influenza vaccination LUNG CANCER SCREENING Start: 1999 Screening for malignant neoplasm of lung Lung Cancer Screening Start: 1999 SHINGRIX VACCINE (1 of 2) SHINGRIX VACCINE (1 of 2) Start: 1994 COLOGUARD (FIT-DNA) COLOGUARD (FIT-DNA) Start: [address] COLONOGRAPHY Start: 1994 Screening for malignant neoplasm of colon Start: 1994 SIGMOIDOSCOPY SIGMOIDOSCOPY Start: 1979 Zoledronic acid therapy ALPHA-1 ANTITRYPSIN DEFICIENCY SCREENING Start: 1967 BP CONTROLLED (<130/80) BP CONTROLLED (<130/80) [facility]ic Bacteria identified in Urine by Culture URINE CULTURE Microbiology Routine Dysuria Ordered: 09/15/2021 [facility] Work Phone: Comment on above: Ordered: 09/15/2021 Bacteria identified in Urine by Culture Urine Culture [facility] Bacteria identified in Urine by Culture URINE CULTURE Microbiology Routine Dysuria 03/23/2024 2:06 PM EDT [facility] Work Phone: Blood ammonia measurement [facility] carBAMazepine [Mass/ volume] in Serum or Plasma [facility] Clostridioides diffi cile DNA [Presence] in Unspecified specimen by ALEENA with probe detection [facility] End: 01-28-2023 ECG COMPLETE ECG COMPLETE ECG Routine Essential hypertension Chest pain, unspecified type 1 Occurrences starting 01/28/2022 until 01/28/2023 [facility] Work Phone: Comment on above: 1 Occurrences starting 01/28/2022 until 01/28/2023 Hemoglobin A1c/Hemoglobin.total in Blood [facility] Hemoglobin.gastroint estinal. lower [Presence] in Stool by Immunoassay FECAL OCCULT BLOOD TEST Lab Routine Acute blood loss anemia Angiodysplasia of colon with hemorrhage Ordered: 01/14/2022 [facility] Work Phone: Comment on above: Ordered: 01/14/2022 INR in Blood by Coag ulation assay [facility] Lactic acid measurement [facility] End: 12-05-2022 LUNG DIFFUSION CAPACITY (DLCO) LUNG DIFFUSION CAPACITY (DLCO) PFT Routine COPD with chronic bronchitis (HCC) 1 Occurrences starting 11/05/2021 until 12/05/2022 [facility] Work Phone: Comment on above: 1 Occurrences starting 11/05/2021 until 12/05/2022 End: 01-15-2026 LUNG DIFFUSION CAPACITY (DLCO) LUNG DIFFUSION CAPACITY (DLCO) PFT Routine SOB (shortness of breath) 1 Occurrences starting 12/17/2024 until 01/15/2026 Comment on above: 1 Occurrences starting 12/17/2024 until 01/15/2026 Nucleic acid assay [facility] Patient Education [facility] Work Phone: Patient referral [facility] Work Phone: End: 06-18-2023 PVR LEG COREY VAS LAB PVR LEG COREY VAS LAB Vascular Lab Routine PVD (peripheral vascular disease) (HCC) 1 Occurrences starting 01/31/2022 until 06/18/2023 [facility] Work Phone: Comment on above: 1 Occurrences starting 01/31/2022 until 06/18/2023 PVR LEG COREY VAS LAB PVR LEG COREY VAS LAB Vascular Lab Routine Peripheral arterial disease (HCC) PVD (peripheral vascular disease) (HCC) 1 Occurrences starting 12/26/2022 [facility] Work Phone: Comment on above: 1 Occurrences starting 12/26/2022 End: 12-05-2022 Radiologic exam chest 2 views XR CHEST 2V FRONTAL/LAT Radiology Routine COPD with chronic bronchitis (HCC) 1 Occurrences starting 11/05/2021 until 12/05/2022 [facility] Work Phone: Comment on above: 1 Occurrences starting 11/05/2021 until 12/05/2022 Respiratory pathogen s DNA and RNA panel - Respiratory specimen by ALEENA with probe detection [facility] End: 01-15-2026 SPIROMETRY WITH DILATOR IF OBSTRUCTED SPIROMETRY WITH DILATOR IF OBSTRUCTED PFT Routine SOB (shortness of breath) 1 Occurrences starting 12/17/2024 until 01/15/2026 [facility] Work Phone: Comment on above: 1 Occurrences starting 12/17/2024 until 01/15/2026 Troponin T.cardiac [Mass/volume] in Serum or Plasma by High sensitivity method [facility] Troponin T.cardiac [Mass/volume] in Serum or Plasma by High sensitivity method [facility] Urinalysis complete panel - Urine URINALYSIS, WITH MICROSCOPIC Lab Routine Dysuria Hematuria, unspecified type Ordered: 09/15/2021 [facility] Work Phone: Comment on above: Ordered: 09/15/2021 Urinalysis complete panel - Urine UA WITH CULTURE IF INDICATED Lab Routine Dysuria Ordered: 09/15/2021 [facility] Work Phone: Comment on above: Ordered: 09/15/2021 US Carotid arteries [facility] End: 01-01-2025 US Lower extremity artery - bilateral PVR LEG [facility] Vascular Lab Routine Peripheral arterial disease (HCC) 1 Occurrences starting 01/02/2024 until 01/01/2025 [facility] Work Phone: Comment on above: 1 Occurrences starting 01/02/2024 until 01/01/2025 End: 01-11-2026 XR Chest PA and Lateral XR CHEST 2V FRONTAL/LAT Radiology Routine Wheezing 1 Occurrences starting 12/12/2024 until 01/11/2026 Comment on above: 1 Occurrences starting 12/12/2024 until 01/11/2026 XR Chest PA and Lateral XR CHEST 2V FRONTAL/LAT Radiology Routine Wheezing 12/12/2024 3:36 PM EDT [facility] Immunizations Immunization Date Immunization Notes Care Provider [facility] 03-31-2023 Influenza High-Dose Quadrivalent Dr. Daija Morton Work Phone: [facility] 03-31-2023 influenza virus vaccine, unspecified formulation Daija Morton MD Work Phone: 06-04-2021 tetanus toxoid, redu marianna diphtheria toxoid, and acellular pertussis vaccine, adsorbed Dr. Daija Morton Work Phone: 04-05-2021 influenza, high-dose , quadrivalent vaccine (FLUZONE HIGH DOSE QUADRIVALENT) Lizette Ulloa RN Work Phone: 04-05-2021 influenza virus vaccine, unspecified formulation Anjel Braga APRN.PATIENT CARE ASSOCIATE Work Phone: 10-08-2020 COVID-19 vaccine, fu ll dose (MODERNA) Lizette Ulloa RN Work Phone: 09-24-2020 zoster vaccine, live Harriett lomax TRANSLITERATOR.COMMUNICATIONS DEPARTMENT CHAIR Work Phone: 09-16-2020 influenza, high-dose , quadrivalent vaccine (FLUZONE HIGH DOSE QUADRIVALENT) [facility] Work Phone: Work Phone: 08-09-2020 influenza, injectabl e, quadrivalent, contains preservative Harriett Albert TRANSLITERATOR.COMMUNICATIONS DEPARTMENT CHAIR Work Phone: 08-09-2020 influenza, injectabl e, quadrivalent, preservative free Dr. Daija Morton Work Phone: [facility] 08-09-2020 influenza, seasonal, injectable Dr. Daija Morton Work Phone: [facility] 08-09-2020 influenza, seasonal, injectable, preservative free Harriett Albert TRANSLITERATOR.COMMUNICATIONS DEPARTMENT CHAIR Work Phone: 05-21-2020 influenza, high-dose , quadrivalent vaccine (FLUZONE HIGH DOSE QUADRIVALENT) Lizette Ulloa RN Work Phone: Work Phone: 07-11-2019 influenza, high dose seasonal, preservative-free Lizette Ulloa RN Work Phone: Work Phone: 05-18-2018 pneumococcal polysaccharide vaccine, 23 valent Lizette Ulloa RN Work Phone: 03-14-2018 influenza, high dose seasonal, preservative-free Lizette Ulloa RN Work Phone: 05-31-2017 influenza, high dose seasonal, preservative-free Lizette Ulloa RN Work Phone: 06-01-2016 influenza, high dose seasonal, preservative-free Lizette Mayi RN Work Phone: Work Phone: 03-23-2016 influenza, injectabl e, quadrivalent, contains preservative Harriett Albert TRANSLITERATOR.COMMUNICATIONS DEPARTMENT CHAIR Work Phone: 03-23-2016 influenza, injectabl e, quadrivalent, preservative free Dr. Daija Morton Work Phone: [facility] 03-23-2016 influenza, seasonal, injectable Dr. aDija Morton Work Phone: 03-23-2016 influenza, seasonal, injectable, preservative free Lizette Ulloa RN Work Phone: Work Phone: 07-14-2015 pneumococcal conjuga te vaccine, 13 valent Lizette Ulloa RN Work Phone: Work Phone: 09-09-2014 influenza, injectabl e, quadrivalent, contains preservative Harriett Albert TRANSLITERATOR.COMMUNICATIONS DEPARTMENT CHAIR Work Phone: 09-09-2014 influenza, injectabl e, quadrivalent, preservative free Dr. Daija Morton Work Phone: [facility] 09-09-2014 influenza, seasonal, injectable Dr. Daija Morton Work Phone: 09-09-2014 influenza, seasonal, injectable, preservative free Lizette Ulloa RN Work Phone: Work Phone: 03-25-2013 pneumococcal polysaccharide vaccine, 23 valent Lizette Ulloa RN Work Phone: Work Phone: 03-25-[address] Nemesio Morton Work Phone: [facility] Work Phone: 03-25-2013 pneumococcal vaccine , unspecified formulation Respiratory Wstr Work Phone: Work Phone: 03-24-[address] Daija Morton Work Phone: [facility] 03-24-2013 influenza virus vaccine, unspecified formulation Lizette Ulloa RN Work Phone: Work Phone: 03-24-2013 influenza, seasonal, injectable Harriett Albert APRN.COMMUNICATIONS DEPARTMENT CHAIR Work Phone: 03-24-2013 influenza, seasonal, injectable, preservative free Lizette Ulloa RN Work Phone: Work Phone: 01-03-2013 tetanus toxoid, redu marianna diphtheria toxoid, and acellular pertussis vaccine, adsorbed Lizette Ulloa RN Work Phone: Payers Date Payer Category Payer Unknown [id number] 2024 Medicare (Managed Care) 1.2. [id number] 2024 Medicaid [id number] 2024 Unknown [id number] 2024 Self-pay [id number] 2023 Private Health Insurance [id number] 2022 Unknown [id number] [address] [facility] AARP MEDICAR E [facility] AARP MEDICARE HMO [id number] 2021-Present [phone] [address] [address] [place] [address] HMO [id number] 2017 Medicaid [id number] 2017 Medicaid [id number]. [id number] .[id number] 2014 Medicare [id number] 2014 Medicare [id number] 2014 Medicare [id number]. 1.13.159.2.7 .[id number] 1949 Unknown [id number] 2.16.840.1.255045.3.579.2.6 27 1949 Unknown [id number] 2.16.840.1.793592.3.579.2.6 27 1949 Unknown [id number] 2.16.840.1.476298.3.579.2.6 27 Private Health Insurance [facility] 18 [id number] Unknown [id number] Unknown [id number] Unknown [id number] 2.16.840.1.976636.3.579.2.4 62 Unknown [id number] 2.16.840.1.050632.3.579.2.4 62 Unknown [id number] 2.16.840.1.856770.3.579.2.4 62 Unknown [id number] 2.16.840.1.523742.3.579.2.4 62 Unknown [id number] 2.16.840.1.745383.3.579.2.4 62 Unknown [id number] 2.16.840.1.571429.3.579.2.4 62 Unknown [id number] 2.16.840.1.793933.3.579.2.4 62 Unknown [id number] 2.16.840.1.260625.3.579.2.4 62 Unknown [id number] 2.16.840.1.207635.3.579.2.4 62 Unknown [id number] 2.16.840.1.156629.3.579.2.4 62 Unknown [id number] 2.16.840.1.602472.3.579.2.4 62 Unknown [id number] 2.16.840.1.446732.3.579.2.4 62 Unknown [id number] 2.16.840.1.645159.3.579.2.4 62 Unknown [id number] 2.16.840.1.385339.3.579.2.4 62 Unknown [id number] 2.16.840.1.856118.3.579.2.4 62 Unknown [id number] 2.16.840.1.067238.3.579.2.4 62 Unknown [id number] 2.16.840.1.593508.3.579.2.4 62 Unknown [id number] 2.16.840.1.194224.3.579.2.4 62 Unknown [id number] 2.16.840.1.283541.3.579.2.4 62 Unknown [id number] 2.16.840.1.284370.3.579.2.4 62 Unknown [id number] 2.16.840.1.614162.3.579.2.4 62 Unknown [id number] 2.16.840.1.623786.3.579.2.4 62 Unknown [id number] 2.16.840.1.708957.3.579.2.4 62 Unknown [id number] 2.16.840.1.367281.3.579.2.4 62 Unknown [id number] 2.16.840.1.762879.3.579.2.4 62 Unknown [id number] 2.16.840.1.146150.3.579.2.4 62 Unknown [id number] 2.16.840.1.056048.3.579.2.4 62 Unknown [id number] 2.16.840.1.407309.3.579.2.4 62 Unknown [id number] 2.16.840.1.807966.3.579.2.4 62 Unknown [id number] 2.16.840.1.753180.3.579.2.4 62 Unknown [id number] 2.16.840.1.684808.3.579.2.4 62 Unknown [id number] 2.16.840.1.781330.3.579.2.4 62 Unknown [id number] 2.16.840.1.254020.3.579.2.4 62 Unknown [id number] 2.16.840.1.762624.3.579.2.4 62 Unknown [id number] 2.16.840.1.968349.3.579.2.4 62 Unknown [id number] 2.16.840.1.264078.3.579.2.4 62 Unknown [id number] 2.16.840.1.519014.3.579.2.4 62 Unknown [id number] 2.16.840.1.525680.3.579.2.4 62 Unknown [id number] 2.16.840.1.313024.3.579.2.4 62 Unknown [id number] 2.16.840.1.250757.3.579.2.4 62 Unknown [id number] 2.16.840.1.697067.3.579.2.4 62 Unknown [id number] 2.16.840.1.128027.3.579.2.4 62 Unknown [id number] 2.16.840.1.033181.3.579.2.4 62 Unknown [id number] 2.16.840.1.398539.3.579.2.4 62 Unknown [id number] 2.16.840.1.980273.3.579.2.4 62 Unknown [id number] 2.16.840.1.396015.3.579.2.4 62 Unknown [id number] 2.16.840.1.408606.3.579.2.4 62 Unknown [id number] 2.16.840.1.333607.3.579.2.4 62 Unknown [id number] 2.16.840.1.635812.3.579.2.4 62 Unknown [id number] 2.16.840.1.727673.3.579.2.4 62 Unknown [id number] 2.16.840.1.487228.3.579.2.4 62 Unknown [id number] 2.16.840.1.851427.3.579.2.4 62 Unknown [id number] 2.16.840.1.063878.3.579.2.4 62 Unknown [id number] 2.16.840.1.957302.3.579.2.4 62 Unknown [id number] 2.16.840.1.857385.3.579.2.4 62 Unknown [id number] 2.16.840.1.904782.3.579.2.4 62 Unknown [id number] 2.16.840.1.208557.3.579.2.4 62 Unknown [id number] 2.16.840.1.769643.3.579.2.4 62 Unknown [id number] 2.16.840.1.106202.3.579.2.4 62 Unknown [id number] 2.16.840.1.638552.3.579.2.4 62 Unknown [id number] 2.16.840.1.685161.3.579.2.4 62 Unknown [id number] 2.16.840.1.273629.3.579.2.4 62 Unknown [id number] 2.16.840.1.712746.3.579.2.4 62 Unknown [id number] 2.16.840.1.913142.3.579.2.4 62 Unknown [id number] 2.16.840.1.073468.3.579.2.4 62 Social History Date Type Detail Facility Start: 04-10-2020 End: 01-05-2025 Tobacco smoking status NHIS Ex-smoker Start: 06-19-1963 History of tobacco use Cigarette Smo ker Start: 04-10-2020 End: 12-26-2022 Cigarettes smoked current (pack per day) - Reported 2 Start: 04-10-2020 End: 03-23-2024 Tobacco use and exposure Smokeless tobacco non-user Start: 08-26-2021 End: 12-12-2024 Alcohol intake Current non-drinker of alcohol (finding) Start: 04-16-2015 History SDOH Alcohol Comment History of alcohol abuse. I cut that out. Start: 12-17-2019 History SDOH Financial 5 Start: 12-17-2019 History SDOH Food Worry 2 Start: 12-17-2019 History SDOH Food Scarcity 1 Start: 08-22-2019 End: 01-31-2022 Tobacco Comment patient started using patches Start: 1950 Sex Assigned At Not on file [facility] Start: 10-12-2020 End: 03-10-2022 Exposure to SARS-CoV-2 (event) Not sure Start: 06-19-1964 End: 03-23-2024 Tobacco smoking status NHIS Smokes tobacco daily Start: 09-17-2021 End: 01-23-2025 Tobacco smoking status NHIS Unknown if ever smoked [facility] Start: 01-20-2021 [facility] Start: 12-16-2019 Snf [facility] Start: 08-09-2020 Cigarettes [facility] Start: 1950 Sex Assigned At [facility] Start: 09-14-2021 End: 01-28-2022 Exposure to SARS-CoV-2 (event) Unable to assess Start: 05-14-2018 Tobacco smoking status Light t obacco smoker (finding) [facility] Sex Assigned At [facility] Start: 12-17-2019 End: 12-26-2022 Tobacco use panel How hard is it for y ou to pay for the very basics like food, housing, medical care, and heating Not hard at all (I/We) worried massimo er (my/our) food would run out before (I/we) got money to buy more. Sometimes true The food that (I/we) bought just didn't last, and (I/we) didn't have money to get more. Never true Start: 06-19-1963 History of tobacco use Current smoke r Start: 08-25-2024 End: 08-25-2024 Tobacco smoking status NHIS Current some day smoker [facility] Start: 06-02-2009 End: 08-25-2024 Sex Male (finding) [facility] Medical Equipment Procedure Code Equipment Code Equipment Original Text Equipment Identifier Dates EGD, with monitored anesthesia care ()[id number] FDA Start: 12-23-2024 EGD, with monitored anesthesia care ()[id number] FDA Start: 01-06-2025 Graft [place] 7mm T hin Wall Heparin Propaten Ptfe 80cm 60cm Vascular Removable - [id number] Start: 10-10-2019 Patch Cv 8x.8cm Tapr Vsgrd Bov - [id number] Start: 10-23-2013 Comment on above: Description: Implant ed left femoral artery Patch Vascu-Guar d Taper Bovine Pericardial 8x.8cm Cardiovascular [place] - [id number] Start: 10-08-2019 Stent Palmaz Gen esis Opta Pro Flexsegment 8mm 40mm Large Stainless Steel 80 - [id number] Start: 10-08-2019 Stent Palmaz Gen esis Opta Pro Flexsegment 8mm 40mm Large Stainless Steel 80 - [id number] Start: 10-08-2019 Stent Trchbr 7mm 7fr 38mm 120 - [id number] Start: 10-23-2013 Comment on above: Description: Second stent lot #[id number]. exp. 03/2016 Stent Vasc 8mm 1 5cm 120cm .035 - [id number] Start: 10-23-2013 Comment on above: Description: Implant ed in left iliac artery Stent Trchbr 7mm 7fr 38mm 120 - [id number] Start: 10-23-2013 Stent Corey 10mm 8 0mm 120cm .035 - [id number] Start: 10-23-2013 Comment on above: Description: Implant ed in right iliac artery Stent Corey 10mm 8 0mm 120cm .035 - [id number] Start: 10-23-2013 Comment on above: Description: Implant ed in right iliac artery Stent Icast 8mm Ptfe Stainless Steel 59mm 80cm Tracheobronchial Covered - [id number] Start: 10-08-2019 Stent Icast 8mm Ptfe Stainless Steel 59mm 80cm Tracheobronchial Covered - [id number] Start: 10-08-2019 Goals Date Patient Goal [...] Functional status Ambulates;Emeka r;Bedside Commode;Stand and pivot [facility] Work Phone: 12-26-2024 Functional status Stand and pivot [facility] Work Phone: 12-16-2024 Functional status [facility] Work Phone: 12-16-2024 Functional status Ambulates;Back to bed [facility] Work Phone: 09-02-2024 Functional status With Assist of 1 [facility] Work Phone: 09-01-2024 Functional status Bathroom Privilege [facility] Work Phone: 08-02-2023 Functional status With Assist of 1 [facility] Work Phone: 08-01-2023 Functional status Bedrest [facility] Work Phone: 07-26-2023 Functional status Chair [facility] Work Phone: 07-26-2023 Functional status Bedrest [facility] Work Phone: 07-25-2023 Functional status None [facility] Work Phone: 04-04-2023 Functional status Up ad chadwick;Bath room Privilege [facility] Work Phone: 10-22-2022 Functional Status Minimum assistance [facility] 10-22-2022 Functional Status Standard Safet y ID band on, Call device within reach, Bed in low position, Wheels locked, Upper/Half-Length side-rails up, Phone within reach, Bedside Cart Locked [facility] 11-30-2021 Functional status Ambulates [facility] Work Phone: 09-29-2021 Functional Status [facility] 09-13-2021 Are you deaf, or do you have serious difficulty hearing No 09/13/2021 4:47 PM Bessy Ovalles, RN No 09-13-2021 Are you blind, or do you have serious difficulty seeing, even when wearing glasses No 09/13/2021 4:47 PM Bessy Ovalles, RN No 09-13-2021 Do you have serious difficulty walking or climbing stairs No 09/13/2021 4:47 PM EDT Bessy Nunez, RN No 09-13-2021 Do you have difficul ty dressing or bathing No 09/13/2021 4:47 PM EDT Bessy Nunez, RN No 09-13-2021 Because of a physica l, mental, or emotional condition, do you have difficulty doing errands alone such as visiting a physician's office or shopping No 09/13/2021 4:47 PM EDT Bessy Nunez, SE[place] No 08-21-2021 Functional status Ambulates;Emeka r;Bathroom Privilege [facility] Work Phone: 08-21-2021 Functional status Tolerates Activity Well [facility] Work Phone: Mental Status Date Assessment Result Facility 01-08-2025 Cognitive function Touch/Shaking [facility] Work Phone: 01-05-2025 Cognitive function Awake;Disoriented [facility] Work Phone: 12-26-2024 Cognitive function Voice[facility]Name [facility] Work Phone: 12-17-2024 Cognitive function Voice/Name [facility] Work Phone: 12-16-2024 Cognitive function Voice/Name [facility] Work Phone: 09-02-2024 Cognitive function Voice/Name [facility] Work Phone: 08-25-2024 Cognitive function Level Of Cons ciousness Awake;Alert;Appropriate;Fol lows Commands [facility] Work Phone: 08-02-2023 Cognitive function Voice/Name [facility] Work Phone: 07-26-2023 Cognitive function Person;Place;Time [facility] Work Phone: 07-25-2023 Cognitive function Voice/Name [facility] Work Phone: 04-04-2023 Cognitive function Voice/Name [facility] Work Phone: 02-17-2023 Cognitive function Level Of Cons ciousness Awake;Alert;Appropriate;Fol lows Commands [facility] Work Phone: 12-31-2022 Cognitive function Level Of Cons ciousness Awake;Alert;Appropriate;Fol lows Commands [facility] Work Phone: 10-22-2022 Mental Status Orientation Oriented x 4 [facility]3] 10-22-2022 Mental Status [facility] 03-07-2022 Cognitive function Level Of Cons ciousness Awake;Alert;Appropriate [facility] Work Phone: 03-02-2022 Cognitive function Level Of Cons ciousness Awake;Alert;Appropriate [facility] Work Phone: 01-28-2022 Cognitive function Level Of Cons ciousness Awake;Alert;Appropriate;Fol lows Commands [facility] Work Phone: 11-30-2021 Cognitive function Voice/Name [facility] Work Phone: 10-08-2021 Cognitive function Level Of Cons ciousness Awake;Alert;Appropriate;Fol lows Commands [facility] Work Phone: 09-29-2021 Mental Status [facility] 09-13-2021 Because of a physica l, mental, or emotional condition, do you have serious difficulty concentrating, remembering, or making decisions No 09/13/2021 4:47 PM EDT Bessy Nunez RN No 08-21-2021 Cognitive function Voice/Name [facility] Work Phone: 06-12-2021 Cognitive function Level Of Cons ciousness Awake;Alert;Appropriate;Fol lows Commands [facility] Work Phone: Clinical Notes 10-08-2019 to 03-18-2025 [...] in any part of the body Seizures [phone] [employer]. [address] [place] [address]. All rights reserved. This information is not intended as a substitute for professional medical care. Always follow your healthcare professional's instructions. Follow Up Care 03/18/2025 02:08:48 With:Go to emergency room if symptoms worsen Address:Unknown When:2-4 days With:CARLA CRANE MD Address: [address] [place] [phone] When:2-4 days [facility] 03-18-2025 Note Discharge Instructions Thank you for allowing [facility] to assist you with your healthcare needs. [...] worsen When:Within 2-4 days Follow Up with CARLA CRANE MD When:Within 2-4 days Where:[address] [place] [phone] Allergies NKA Medications Please ask your primary [...] in any part of the body Seizures [phone] [employer]. [address] [place] [address]. All rights reserved. This information is not intended as a substitute for professional medical care. Always follow your healthcare professional's instructions. Additional Information VACCINATE! IT SAVES LIVES! Members of the community who have not yet received the COVID-19 vaccine and would like to receive it can visit one of [facility] vaccine clinics. There are many vaccine clinic locations within the [facility]. For locations and available times, please visit [email or web address] It is important to note that some COVID mobile vaccine clinics are held outdoors and may be canceled in rainy or stormy conditions. To learn more about pediatric vaccinations (ages 5-11), we invite you to visit the [facility] webpage. [email or web address] To learn more about the COVID-19 vaccine, we invite you to visit the CDC website for a list of frequently asked questions. https://www.cdc.gov/coronavirus/ 2019-ncov/vaccines/faq.html [facility] Patient Portal Access Instructions: Stay connected with your healthcare team and access your personal medical information anytime with the [facility] Patient Portal. If you would like a full copy of your medical records please contact the [facility] Medical Records Department Monday through Monday between 8a.m. and 4:30p.m. Please follow the directions below to access the portal: 1.Access the email account you provided upon registration to the [facility].2.Look for an invitation email from [facility].3.Open the email and access the invitation link: [facility]4.Fill in the required batres to create your account. To access your account, visit [employer] or scan the [employer]MD(TM) by [employer] code above. Click the blue button labeled [...] you will allow to register on the [employer] [facility] Patient Portal for access to your information. You can also access the [employer] Patient Portal on the [employer] andrew. Simply click on Health Records under Health Data and then click on the [employer] logo. HOW TO SAFELY DISPOSE OF PRESCRIPTION [...] Call your local pharmacy or go to http://bit.ly/6A5Yu2a to find one close to you.3.Make use of household items: Use cat litter or old coffee grounds to dispose medications if other options are not available. Mix your drugs with these household products, seal them in an airtight container and throw it into the garbage. Call [facility]: [phone] to be sure your drugs can be [...] aware that I should contact my doctor. Patient/Political Organizer Signature: Date/Time: Relationship to Patient: Witness Name/Signature: Date/Time: [facility] 03-18-2025 Note Exam Date Time Procedure Performing Provider Status 03/18/25 3:[address] Maxillofacial w/o Contrast LEYLA SHOOK MD; Auth (Verified) [id number] ORIGINAL EXAMINATION: CT OF THE FACE WITHOUT [...] Ordering Provider: MAGDALENE POWELL RP [facility]09-30-2025 Note* Exam Date Time Procedure Performing Provider Status 03/18/25 3:[address] Spine Cervical w/o Contrast LEYLA SHOOK MD; Auth (Verified) [id number] ORIGINAL EXAMINATION: CT OF THE CERVICAL SPINE [...] 4:21:10 AM Ordering Provider: MAGDALENE POWELL RP [facility]09-30-2025 Note* Exam Date Time Procedure Performing Provider Status 03/18/25 3:[address] Head or Brain w/o Contrast LEYLA SHOOK MD; Auth (Verified) [id number] ORIGINAL EXAMINATION: CT OF THE HEAD WITHOUT [...] Ordering Provider: MAGDALENE POWELL RP [facility]08-01-2025 Telephone encounter Note* Telephone Encounter - Debby [...] Saldana LPN January 17, 2025 9:07 AM 08-01-2025 Miscellaneous Notes* Telephone Encounter - Debby Saldana [...] 17, 2025 9:07 AM documented in this encounter07-23-2025 Discharge summary Author Ryan Guerin [facility] Note Date/Time January 08, 2025 4:09 pm [facility] Medical Records Department [address] [place] [address] Transfer to [facility] MR#: [id number] Acct: [id number] Name: PEDRO PABLO SIERRA Rep #:[id number] : 1950 74 From: Ryan Guerin DO [...] SERVICES PRIOR TO HIS/HER TRANSFER TO THE [facility]. 01/08/25 1609<Electronically signed by Ryan Guerin DO> [...] advanced diet as tolerated to cardiac per SUPERVISOR OVENS recommendations. 2. Initiate via PEG: Jevity 1.5Cal [...] D/C Order can be placed): Long-Term Facility 01/08/25 3054 <Electronically signed by Ryan Guerin DO> Cosigner Signature (if applicable): CC: Dr. Frankie Galindo MD; Dr. Lorraine Mena MD ~ [facility] Work Phone: 1(612) 866-240507-23-2025 Hospital Discharge instructionsAdditional Instructions Date of Discharge: 01/08/25[facility] Work Phone: 1(319) 613-713407-23-2025 Progress note Author Ryan Guerin [facility] Note Date/Time January 08, 2025 7:25 am [facility] Medical Records Department [address] [facility] [place] [address] Progress Note - Hospitalist 01/07/251951 MR#: [id number] Acct: [id number] Name: PEDRO PABLO SIERRA Rep #:[id number] : 1950 74 From: Ryan Guerin DO PCP: Dr. Lorraine Mena MD Status:A DM IN Location: [place] [address] Reason for Visit Chief Complaint: Suspected PEG tomorrow found Subjective Subjective The date of this injury is 01/07/2025: Patient was seen and examined today, he iscurrently on 2 L of oxygen via nasal cannula, I restarted his tube feedings today, we are currently awaiting [facility]CERT [facility] Objective Data [...] 35 minutes Charges/Coding Visit Charges Inpatient E&M: 21684 Subs Hosp L2 01/08/25724 <Electronically signed by Ryan Guerin DO> Cosigner Signature (if applicable): CC: ~ Signed [facility] Work Phone: 1(884) 487-558307-22-2025 Progress note Author Ryan [facility] Note Date/Time January 07, 2025 7:52 pm [facility] Medical Records Department [address] [place] [address] Progress Note - Hospitalist 01/07/251943 MR#: [id number] Acct: [id number] Name: PEDRO PABLO SIERRA Rep #:[id number] : 1950 74 From: Ryan Guerin DO PCP: Dr. Lorraine Mena MD Status:A DM IN Location: [place] [address] Reason for Visit Chief Complaint: Suspected PEG [...] 35 minutes Charges/Coding Visit Charges Inpatient E&M: 52579 Subs Hosp L2 01/07/251951 <Electronically signed by Ryan Guerin DO> Cosigner Signature (if applicable): CC: ~ Signed [facility] Work Phone: [phone]) 186-937907-22-2025 Progress note Author Paulino Henderson [facility] Note Date/Time January 07, 2025 5:41 pm [facility] Medical Records Department [address] [place] [address] Progress Note 01/07/25 1739 MR#: [id number] Acct: [id number] Name: PEDRO PABLO SIERRA Shannan Rep #:[id number] : 1950 74 From: Paulino Henderson DO PCP: Dr. Lorraine Mena MD Status:A DM IN Location: [place] [address] Progress Note Patient had some respiratory distress [...] for daily usage. Visit Charges Inpatient E&M: 09454 Subs Hosp L3 01/07/25 1741 <Electronically signed by Paulino Henderson DO> Paulino Henderson DO Cosigner Signature (if applicable): CC: ~ Signed [facility] Work Phone: 1(480) 484-725007-21-2025 Consult note Author [facility]un [facility] Note Date/Time January 06, 2025 6:04 pm [facility] Medical Records Department [address] [place] [address] Anesthesia Postop Eval II 01/06/25 1755 MR#: [id number] Acct: [id number] Name: PEDRO PABLO SIERRA Rep #:[id number] : 1950 74 From: Segun Patel MD PCP: Dr. Lorraine Mena MD Status:A DM IN Y Race: C Location: [place] [address] 1-1 Anesthesia Postop Eval I Sum Postop Eval Completion status Anesthesia document: Postop Eval 1 completed: Yes Anesthesia Postop Eval I Summary Anesthesia Postop Eval I Summary: Anesthesia Postop Eval I: Assessment Summary Airway patent Yes 01/06/25 16:59 CAREER SERVICES MANAGER.ABAR Spontaneous unlabored Yes 01/06/25 16:59 CAREER SERVICES MANAGER.ABAR respirations Mental status Awake,Calm 01/06/25 16:59 CAREER SERVICES MANAGER.ABAR nausea No 01/06/25 16:59 CAREER SERVICES MANAGER.ABAR Vomiting No 01/06/25 16:59 CAREER SERVICES MANAGER.ABAR Anesthesia Postop Eval I: Fluid Summary Crystalloid volume administer 100 01/06/25 16:59 CAREER SERVICES MANAGER.ABAR (ml) Colloids volume administered ( ml) Blood Product volume administered (ml) Total IV fluid infused 100 01/06/25 16:59 CAREER SERVICES MANAGER.YURI Anesthesia Postop Eval I: Summary Notes Anesthesia Complication No 01/06/25 16:59 CAREER SERVICES MANAGER.ABAR Anesthesia Complication Comment: Post-operative progress note Anesthesia: [...] patient's current conditions. Patient transferred back to [facility] with oxygen. 01/06/251803 <Electronically signed by Segun corbett MD> Date _ Segun Patel MD Cosigner Signature: Date CC: ~ Signed [facility] Work Phone: [phone] Consult note Author Roman Holland [facility] Note Date/Time January 06, 2025 4:59 pm [facility] Medical Records Department [address] [place] [address] Anesthesia Postop Eval I 01/06/25 1658 MR#: [id number] Acct: [id number] Name: ARIEL SIERRAJAYY Pierce Rep #:[id number] : 1950 74 From: Roman reaves CRNA PCP: Dr. Lorraine Mena MD Status:A DM IN Y Race: C Location: [place] [address] 06-19 Anesthesia: Postop Eval I Current Vital [...] document: Postop Eval 1 completed: Yes 01/06/25 3835 <Electronically signed by Roman Greeen CAREER SERVICES MANAGER> Date _ Roman Holland CAREER SERVICES MANAGER Cosigner Signature: Date CC: ~ Signed [facility] Work Phone: 1(142) 431-358107-21-2025 Consult note Author Segun [facility] Note Date/Time January 06, 2025 3:58 pm [facility] Medical Records Department [address] [place] [address] Pre-Anesthesia Evaluation 01/06/25 1542 MR#: [id number] Acct: [id number] Name: PEDRO PABLO SIERRA Rep #:[id number] : 1950 74 From: Segun Patel MD PCP: Dr. Lorraine Mena MD Status:A DM IN Y Race: C Location: [place] [address] ASA Classification* ASA Classification ASA Classification: 4 [...] (Patient's ex- is the medical power of contracts attorney (Joseph Burrell).) Anesthesia Focused Assessment* Temperature: [...] tube placement. 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 - stewarding supervisor: Anesthesia History - stewarding supervisor Hx Hospitalization Yes 08/08/20 16:59 Any Problems [...] Yes NPO since: 00:00 PONV PONV - stewarding supervisor: PONV - stewarding supervisor Female HX of Motion Sickness HX of N/V After Surgery Non-Smoker Duration of Surgery greater than 60 minutes Number of Risk Factors PONV Score Height & Weight Height & Weight: Anesthesia: Height & Weight Height 6 ft 01/06/25 08:50 Weight: 66.5 kg 01/06/25 08:50 Body Mass Index (BMI) 19.8 01/06/25 05:00 Respiratory Assessment Respiratory Assessment - stewarding supervisor: Respiratory Tract Infection Hx - stewarding supervisor Hx Respiratory Tract Infection No 12/23/24 09:15 Any additional information?: Yes Hx Respiratory Tract Infection: Yes History of Anesthesia Respiratory Infection details: Patient had an episode of aspiration pneumonia yesterday at the correction. Patient had to be put up to 10 L of oxygen on the Ventimask. He is currently on 8 L nasal cannula. STOP Sleep Apnea STOP Sleep Apnea - stewarding supervisor: STOP Sleep Apnea - stewarding supervisor Hx Hypertension Yes 01/05/25 14:48 Hx Sleep [...] Tobacco Use History Tobacco Use History - stewarding supervisor: Tobacco Use History - stewarding supervisor Tobacco Use Cigarettes 12/26/24 04:00 Smoking Status Unknown if ever smoked 01/05/25 14:48 Hx Tobacco Use No: unknown 01/05/25 14:48 Years Smoking Packs Smoked per Day Smoking Cessation Date was Yes - quit smoking within 15 01/05/25 09:44 within the last 15 years years Hx Smoking Cessation Date Hx Smoking Cessation No 01/05/25 14:48 Counseling Hematologic Medial History Hematologic Hx - stewarding supervisor: Hematologic Medical Hx - document image technician Hx of Blood Transfusion No 01/05/25 14:48 [...] confused, unrespo /Reproduction History /Reproductive History - stewarding supervisor: /Reproductive Hx- stewarding supervisor Hx Now Gestational Age (in weeks): EDC: [...] 01/06/25 14:28 Carbamazepine 200 Mg/10 Ml Udc ([facility]) GT Not Given 4X/DAY LEON [...] mls @ 15 mls/hr 01/05/25 15:14 IV .[id number] PRN Saline Flush Sodium Chloride 250 mls @ 15 mls/hr 01/05/25 15:14 IV .[id number] PRN Additional IVPB Infusion Sodium Chloride 1,000 [...] no additional complaints, except as documented. 01/06/25 1308 <Electronically signed by Segun corbett MD> Date _ Segun Patel MD Cosigner Signature: Date CC: ~ Signed [facility] Work Phone: [phone]) 441-779807-21-2025 Procedure [facility] 01-06-2025 Procedure [facility]07-21-2025 Radiology Diagnostic study [facility]07-20-2025 Consult note Author Paulino Friend [facility] Note Date/Time January 05, 2025 7:50 pm [facility] Medical Records Department [address] [place] [address] Consultation - GI 01/05/251945 MR#: [id number] Acct: [id number] Name: PEDRO PABLO SIERRA Rep #:[id number] : 1950 74 From: Paulino Henderson DO PCP: Dr. Lorraine Mena MD Status:A DM IN Location: [place] [address] HPI Consult Data Date of Consult: 01/05/25 [...] to put the PEG tube back in. PENDING SALE TO [facility] Medical History Acute CVA (cerebrovascular accident) Aphasia [...] 76.7 H, Lymph % (Auto) 14.2 L, Addison % (Auto) 7.0, Eos % (Auto) 1.2, [...] IMPRESSION: COPD. No acute findings. Reading Location: [id number] X-Ray 01/05/25 13:02 IMPRESSION: A PEG tube tip is projected in the region of the stomach. Contrast material is identified within the stomach. There is no extravasation of the contrast. Reading Location: [id number] Assessment & Plan Assessment/Plan (1) PEG tube malfunction: PLAN: 74-year-old with multiple comorbidities who recently pulled his PEG tube out. We will take him for endoscopy tomorrow for PEG tube replacement. His bowel return was explained alternatives, benefits, risk including understanding bleeding, infection, sepsis, perforation, need for more surgery and . He will have an ASA of 3. Charges/Coding Visit Charges Inpatient E&M: 43270 Init Hosp L3 01/05/25 1950 <Electronically signed by Paulino Friend DO> Cosigner Signature (if applicable): CC: Dr. Lorraine Mena MD~ Signed [facility] Work Phone: [phone]) [phone] History and physical note Author Frankie Galindo [facility] Note Date/Time January 05, 2025 2:02 pm [facility] Medical Records Department [address] [place] [address] H&P Exam - Hospitalist 01/05/25 1336 MR#: [id number] Acct: [id number] Name: PEDRO PABLO SIERRA Rep #:[id number] : 1950 74 From: Frankie Galindo MD PCP: Dr. Lorraine Mena MD Status:A DM IN Location: [place] [address] HPI - General General Date of Admission: 01/05/25 Date of Service: 01/05/25 Chief Complaint: Suspected PEG tomorrow found HPI Narrative PEDRO PABLO SIERRA, is a 74 M with recent diagnosis of acute left MCA CVA discharged to a [facility]p facility. Patient had a PEG tube placed [...] to a monitored bed for further management PENDING SALE TO [facility] Medical History Acute CVA (cerebrovascular accident) Aphasia [...] 76.7 H, Lymph % (Auto) 14.2 L, Addison % (Auto) 7.0, Eos % (Auto) 1.2, [...] IMPRESSION: COPD. No acute findings. Reading Location: [facility] X-Ray 01/05/25 13:02 IMPRESSION: A PEG tube tip is projected in the region of the stomach. Contrast material is identified within the stomach. There is no extravasation of the contrast. 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 Was [...] ? Currently on apixaban CODE STATUS from [facility] documentation DNR CCA no intubation reordered Time spent in the patient's overall evaluation,decision-making process, review of diagnostic data, adjustment of management, discussion with other providers, nursing nursing and ancillary staff involved in patient's care documentation, 78 Minutes Charges/Coding Visit Charges Inpatient E&M: 68625 Init Hosp L3 01/05/25 1402 <Electronically signed by Frankie Galidno MD> Cosigner Signature (if applicable): CC: Dr. Frankie Galindo MD; Dr. Lorraine Mena MD~ Signed [facility] Work Phone: [phone]) [phone] Discharge summary Author Fco Monroy [facility] Note Date/Time January 05, 2025 1:41 pm [facility] Medical Records Department [address] [place] [address] Emergency Department Summary 01/05/25 MR#: [id number] Acct: [id number] Name: PEDRO PABLO SIERRA Rep #:[id number] : 1950 74 From: Fco Monroy MD [...] sent in because of malfunctioning gastrostomy tube. Balance Wheel Motion Inspector states he was sent in for hypertension. Apparently their blood pressure readings were elevated and reason the chief complaint is hypertension. Per the correction report to nursing staff he was sent in because of gastrostomy tube problems. Reading summary of care patient with history of COPD/asthma with chronic hypoxemic respiratory failure on 2 L by nasal cannula. There was no mention of aspiration or risks of aspiration. Prior similar symptoms: No Recent Illness/Hospitalization: Yes [facility] Medical History Acute CVA (cerebrovascular accident) [...] 76.7 H Lymph % (Auto) 14.2 L Addison % (Auto) 7.0 Eos % (Auto) 1.2 [...] IMPRESSION: COPD. No acute findings. Reading Location: [facility] X-Ray 01/05/25 13:02 IMPRESSION: A PEG [...] respiratory failure with hypoxia, Current use of senior care anticoagulation, CVA (cerebral vascular accident), COPD (chronic [...] MD [Primary Care Provider] - Print Language: Malaysian Disposition Disposition: Assisted Living What to do if you have Problems For any increased pain, shortness of breath, bleeding, nausea or vomiting, chestpain, or any unexpected problems, contact your Primary Care Provider. Call [facility] ([phone]) or report to the closest Emergency Room. Call 911 if necessary. 01/05/25 1341 <Electronically signed by Fco Monroy MD> Cosigner Signature (if applicable): CC: Dr. Lorraine Mena MD ~ Signed [facility] Work Phone: [phone]) [phone] Discharge summary Author Fco Monroy [facility] Note Date/Time January 05, 2025 1:41 pm [facility] Medical Records Department [address] [place] [address] Emergency Department Summary 01/05/25 MR#: [id number] Acct: [id number] Name: PEDRO PABLO SIERRA Rep #:[id number] : 1950 74 From: Fco Monory MD PCP: Dr. Lorraine Mena MD Status:R [...] sent in because of malfunctioning gastrostomy tube. Balance Wheel Motion Inspector states he was sent in for hypertension. Apparently their blood pressure readings were elevated and reason the chief complaint is hypertension. Per the correction report to nursing staff he was sent in because of gastrostomy tube problems. Reading summary of care patient with history of COPD/asthma with chronic hypoxemic respiratory failure on 2 L by nasal cannula. There was no mention of aspiration or risks of aspiration. Prior similar symptoms: No Recent Illness/Hospitalization: Yes [facility] PENDING SALE TO [facility] Medical History Acute CVA (cerebrovascular accident) Aphasia [...] 76.7 H Lymph % (Auto) 14.2 L Addison % (Auto) 7.0 Eos % (Auto) 1.2 [...] IMPRESSION: COPD. No acute findings. Reading Location: [facility] X-Ray 01/05/25 13:02 IMPRESSION: A PEG tube tip is projected in the region of the stomach. Contrast material is identified within the stomach. There is no extravasation of the contrast. Reading Location: [facility] Radiology report was reviewed. 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 Call [facility] ([phone]) or report to the closest Emergency Room. Call 911 if necessary. 01/05/25 1341 <Electronically signed by Fco Monroy MD> Cosigner Signature (if applicable): CC: Dr. Lorraine Mena MD ~ Signed [facility] Work Phone: 1(693) 343-658107-20-2025 Radiology Diagnostic study [facility]07-20-2025 Radiology Diagnostic study [facility]07-18-2025 Discharge summary [facility] Note Date/Time January 03, 2025 8:01 am [facility] Medical Records Department [address] [place] [address] Emergency Department Summary 01/03/25 MR#: [id number] Acct: [id number] Name: PEDRO PABLO SIERRA Rep #:[id number] : 1950 74 From: Arnulfo Zhao DO [...] with isopropanol, and inserted a replacement 20 Qatari gastrostomy tube with a 20 cc balloon [...] not ambulatory anyway and already in a correction. 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 halfway states that this morning he fell out [...] further history based on his aphasia/mute status [facility] Medical History Acute CVA (cerebrovascular accident) [...] is at his baseline mental status per correction. Nursing reported he fell out of bed [...] the patient's PEG tube is a 20 Qatari. Therefore we will obtain a similar size in the ER and attempt to replace the PEG tube at this time. The replacement of the PEG tube and imaging studies are still pending and therefore patient be signed out to Dr. Jauregui. I do feel that if all images arenegative patient will be safe to return to the correction once the PEG tube has been replaced. 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 Call [facility] ([phone]) or report to the closest Emergency Room. Call 911 if necessary. 01/03/25 0658 <Electronically signed by Arnulfo Zhao DO> Cosigner Signature (if applicable): CC: Dr. Daija Morton MD ~ Signed [facility] Work Phone: [phone]) 583-691907-18-2025 Radiology Diagnostic study [facility]07-18-2025 Radiology Diagnostic study [facility]07-18-2025 Radiology Diagnostic study [facility] 01-03-2025 Radiology Diagnostic study [facility]07-10-2025 Discharge summary Author Shilpa Contreras [facility] Note Date/Time December 26, 2024 3:43 pm [facility] Medical Records Department [address] [place] [address] Discharge Summary 12/26/24 1533 MR#: [id number] Acct: [id number] Name: PEDRO PABLO SIERRA Shannan Rep #:[id number] : 1950 74 From: Shilpa Contreras MD PCP: Dr. Daija Morton MD Status:ADM I N Location: [place] [address] Providers Date of Admission: 12/18/24 Date of [...] he had reported lacking healthcare power of contracts attorney and living will but had noted [...] Acute COPD Exacerbation who re-presentED to the [facility] ED on 12/17/24 w/ severe dysarthria [...] 84.7 H, Lymph % (Auto) 6.5 L, Addison % (Auto) 7.8, Eos % (Auto) 0.2, [...] continued nutrition consultation and evaluation at the [facility]p facility for ongoing assessments and alteration to [...] Privileges] - (Follow-up with Neurology, may see RELEASE MANAGER within 2-4 weeks of discharge.) Disposition Disposition (needs filled in before D/C Order can be placed): Long-Term Facility Charges/Coding Visit Charges Inpatient E&M: 43117 Disch Hosp >30min 12/26/24 1543 <Electronically signed by Shilpa Contreras MD> Cosigner Signature (if applicable): CC: Dr. Shilpa Contreras MD; Dr. Daija Morton MD~ Signed [facility] Work Phone: 1(435) [phone] [facility]07-10-2025 Telephone encounter Note* Telephone Encounter - Anjel Braga APRN.CNP - 12/26/2024 3:13 PM EDT Admitted to hospital. Will review further at follow up. Anjel Braga APRN.CNP 07-10-2025 Miscellaneous Notes* Telephone Encounter - Anjel Braga APRN.CNP - 12/26/2024 3:13 PM EDT Admitted to hospital. Will review further at follow up. Anjel Braga APRN.CNP documented in this encounter07-10-2025 Progress note Author Shilpa Contreras [facility] Note Date/Time December 26, 2024 12:3 1pm [facility] Medical Records Department [address] [place] [address] Progress Note - Hospitalist 12/26/24 0700 MR#: [id number] Acct: [id number] Name: PEDRO PABLO SIERRA Rep #:[id number] : 1950 74 From: Shilpa Contreras MD PCP: Dr. Daija Morton MD Status:ADM I N Location: [place] [address] Reason for Visit Reason for Visit: Diagnoses Cerebral infarction, unspecified (12/18/24) Facial weakness (12/18/24) Aphasia (12/18/24) Subjective Subjective Patient with no acute events overnight per nursing report. Blood pressure has vacillated but improved with initiation of low-dose hydralazine per PEG. Given continued clinical stability and at this point only awaiting [facility] facility discussed with nursing staff and patient [...] Acute COPD Exacerbation who re-presents to the [facility] ED on 12/17/24 w/ severe dysarthria [...] he had reported lacking healthcare power of contracts attorney and living will but had noted he would wanthis ex- Joseph be his medical decision-maker at that time if absolutely necessary. Full Code status. Charges/Coding Visit Charges Inpatient E&M: 13690 Subs Hosp L2 NIHSS NIHSS Nursing Documentation NIHSS Nursing Documentation: NIHSS: Ischemic Stroke/TIA Start: 12/17/24 18:52 Text: For PCU Patients: NIH and Neuro Check every 4 Status: Complete hours, PRN and with change in RN caregiver. Freq: Q12 Protocol: Activity Type Activity Date Activity User E-sign Co-sign Detail Recorded Client Recorded Date Recorded By Document 12/22/24 08:15 DS [id number] 12/22/24 08:19 DS 12/22/24 08:15 NIH Stroke [...] Cosigner Signature (if applicable): CC: ~ Signed [facility] Work Phone: [phone] Progress note Author Shilpa Contreras [facility] Note Date/Time December 25, 2024 1:49p m [facility] Medical Records Department [address] [place] [address] Progress Note - Hospitalist 12/25/24 0652 MR#: [id number] Acct: [id number] Name: PEDRO PABLO SIERRA Rep #:[id number] : 1950 74 From: Shilpa Contreras MD PCP: Dr. Daija Morton MD Status:ADM I N Location: [place] [address] Reason for Visit Reason for Visit: Diagnoses [...] 82.3 H, Lymph % (Auto) 8.0 L, Addison % (Auto) 8.4, Eos % (Auto) 0.3, [...] Acute COPD Exacerbation who re-presents to the [facility] ED on 12/17/24 w/ severe dysarthria [...] he had reported lacking healthcare power of contracts attorney and living will but had noted he would wanthis ex- Joseph be his medical decision-maker at that time if absolutely necessary. Full Code status. Charges/Coding Visit Charges Inpatient E&M: 16636 Subs Hosp L2 NIHSS NIHSS Nursing Documentation NIHSS Nursing Documentation: NIHSS: Ischemic Stroke/TIA Start: 12/17/24 18:52 Text: For PCU Patients: NIH and Neuro Check every 4 Status: Complete hours, PRN and with change in RN caregiver. Freq: Q12 Protocol: Activity Type Activity Date Activity User E-sign Co-sign Detail Recorded Client Recorded Date Recorded By Document 12/22/24 08:15 DS [id number] 12/22/24 08:19 DS 12/22/24 08:15 NIH Stroke [...] Cosigner Signature (if applicable): CC: ~ Signed [facility] Work Phone: [phone] 384-425007-08-2025 Progress note Author Paulino Friend [facility] Note Date/Time December 24, 2024 5:58p m [facility] Medical Records Department [address] [place] [address] Progress Note 12/24/24 1755 MR#: [id number] Acct: [id number] Name: PEDRO PABLO SIERRA Rep #:[id number] : 1950 74 From: Paulino Henderson DO PCP: Dr. Daija Morton MD Status:ADM I N Location: [place] [address] Progress Note Patient is still tolerating PEG [...] and anticoagulation therapy. Visit Charges Inpatient E&M: 39998 Subs Hosp L2 12/24/244 <Electronically signed by Paulino Henderson DO> Paulino Henderson DO Cosigner Signature (if applicable): CC: ~ Signed [facility] Work Phone: [phone] Discharge summary Author Shilpa Contreras [facility] Note Date/Time December 24, 2024 5:11p m [facility] Medical Records Department [address] [place] [address] Transfer to Extended Care MR#: [id number] Acct: [id number] Name: PEDRO PABLO SIERRA Rep #:[id number] : 1950 74 From: Shilpa Contreras MD [...] Acute COPD Exacerbation who re-presents to the [facility] ED on 12/17/24 w/ severe dysarthria [...] he had reported lacking healthcare power of contracts attorney and living will but had noted [...] advanced diet as tolerated to cardiac per SUPERVISOR OVENS recommendations. 2. Will order to start at [...] continued nutrition consultation and evaluation at the [facility] facility for ongoing assessments and alteration to [...] Privileges] - (Follow-up with Neurology, may see RELEASE MANAGER within 2-4 weeks of discharge.) Disposition Disposition [...] Angelo Wiley MD; Neelam Almendarez DO ~ [facility] Work Phone: [phone] Progress note Author Maya [facility] Note Date/Time December 24, 2024 2:56p m [facility] Medical Records Department [address] [place] [address] Progress Note - Neurology 12/24/24 1451 MR#: [id number] Acct: [id number] Name: PEDRO PABLO SIERRA Rep #:[id number] : 1950 74 From: Maya Talamantes MD PCP: Dr. Daija Morton MD Status:ADM I N Location: [place] [address] Objective Data Objective Data Vital Signs: Vital [...] 82.4 H, Lymph % (Auto) 8.5 L, Addison % (Auto) 7.7, Eos % (Auto) 0.4, [...] on keppra, PVD, and CDwho presented to [facility] ED on 12/17/2024 with dysarthria and right-sided [...] bc patient does not cooperate- swats the instrumentation technician away. Neurological examination limited by decreased [...] Date Recorded By Document 12/22/24 08:15 DS [id number] 12/22/24 08:19 DS 12/22/24 08:15 NIH Stroke [...] Cosigner Signature (if applicable): CC: ~ Signed [facility] Work Phone: [phone] Progress note Author Shilpa Contreras [facility] Note Date/Time December 24, 2024 2:46p m [facility] Medical Records Department [address] [place] [address] Progress Note - Hospitalist 12/24/24705 MR#: [id number] Acct: [id number] Name: PEDRO PABLO SIERRA Rep #:[id number] : 1950 74 From: Shilpa Contreras MD PCP: Dr. Daija Morton MD Status:ADM I N Location: [place] [address] Reason for Visit Reason for Visit: Diagnoses [...] 82.4 H, Lymph % (Auto) 8.5 L, Addison % (Auto) 7.7, Eos % (Auto) 0.4, [...] Acute COPD Exacerbation who re-presents to the [facility] ED on 12/17/24 w/ severe dysarthria [...] per PEG, addback statin per PEG. Awaiting usp facility placement pre-CERT for transition as clinically [...] he had reported lacking healthcare power of contracts attorney and living will but had noted he would wanthis ex- Joseph be his medical decision-maker at that time if absolutely necessary. Patient and daughter have been working with healthcare team closely and patient is maintained full code at this time. Charges/Coding Visit Charges Inpatient E&M: 68841 Subs Hosp L3 NIHSS NIHSS Nursing Documentation NIHSS Nursing Documentation: NIHSS: Ischemic Stroke/TIA Start: 12/17/24 18:52 Text: For PCU Patients: NIH and Neuro Check every 4 Status: Complete hours, PRN and with change in RN caregiver. Freq: Q12 Protocol: Activity Type Activity Date Activity User E-sign Co-sign Detail Recorded Client Recorded Date Recorded By Document 12/22/24 08:15 DS [id number] 12/22/24 08:19 DS 12/22/24 08:15 NIH Stroke [...] Cosigner Signature (if applicable): CC: ~ Signed [facility] Work Phone: [phone] Telephone encounter Note* Telephone Encounter - Daija Morton MD - 12/24/2024 2:09 PM EDT Noted. Daija Tripp MD 07-08-2025 Miscellaneous Notes* Telephone Encounter - Daija Morton MD - 12/24/2024 2:09 PM EDT Noted. Daija Tripp MD * Telephone Encounter - Kelly Zelaya RN - 12/17/2024 2:20 PM EDT [facility] called in to give an update on [...] use. Kelly Zelaya RN documented in this encounter07-07-2025 Consult note Author Kyaw Borrego [facility] Note Date/Time December 23, 2024 3:51p [facility] Medical Records Department [address] [place] [address] Anesthesia Postop Eval II 12/23/24 1551 MR#: [id number] Acct: [id number] Name: PEDRO PABLO SIERRA Rep #:[id number] : 1950 74 From: Kyaw Borrego MD PCP: Dr. Daija Morton MD Status:ADM I N Y Race: C Location: [place] [address] 1-1 Anesthesia Postop Eval I Sum Postop Eval Completion status Anesthesia document: Postop Eval 1 completed: Yes Anesthesia Postop Eval I Summary Anesthesia Postop Eval I Summary: Anesthesia Postop Eval I: Assessment Summary Airway patent Yes 12/23/24 15:30 CAREER SERVICES MANAGER.CSIR Spontaneous unlabored Yes 12/23/24 15:30 CAREER SERVICES MANAGER.CSIR respirations Mental status nausea No 12/23/24 15:30 CAREER SERVICES MANAGER.CSIR Vomiting No 12/23/24 15:30 CAREER SERVICES MANAGER.CSIR Anesthesia Postop Eval I: Fluid Summary Crystalloid volume administer 200 12/23/24 15:30 CAREER SERVICES MANAGER.CSIR (ml) Colloids volume administered ( ml) Blood Product volume administered (ml) Total IV fluid infused 200 12/23/24 15:30 CAREER SERVICES MANAGER.CSIR Anesthesia Postop Eval I: Summary Notes Anesthesia Complication No 12/23/24 15:30 CAREER SERVICES MANAGER.CSIR Anesthesia Complication Comment: Post-operative progress note Anesthesia: Postop Eval II Evaluation Mental status: Awake Pain Level: 0 nausea: No Vomiting: No 12/23/24 1551 <Electronically signed by Kyaw Borrego MD > Date _ Kyaw Ramirezigner Signature: Date CC: ~ Signed [facility] Work Phone: [phone]) 210-632807-07-2025 Consult note [facility] Note Date/Time December 23, 2024 3:32p m [facility] Medical Records Department [address] [place] [address] Anesthesia Postop Eval I 12/23/24 1530 MR#: [id number] Acct: [id number] Name: PEDRO PABLO SIERRA Rep #:[id number] : 1950 74 From: Rocío Barrios CRNA PCP: Dr. Daija Morton MD Status:ADM I N Y Race: C Location: [place] [address] 06-19 Anesthesia: Postop Eval I Current Vital [...] 12/23/24 1532 <Electronically signed by Rocío smith CAREER SERVICES MANAGER> Date _ Rocío Barrios CRNA Cosigner Signature: Date CC: ~ Signed [facility] Work Phone: [phone] Progress note Author Shilpa Contreras [facility] Note Date/Time December 23, 2024 3:24p m [facility] Medical Records Department [address] [place] [address] Progress Note - Hospitalist 12/23/24 0719 MR#: [id number] Acct: [id number] Name: PEDRO PABLO SIERRA Rep #:[id number] : 1950 74 From: Shilpa Contreras MD PCP: Dr. Daija Morton MD Status:ADM I N Location: [place] [address] Reason for Visit Reason for Visit: Diagnoses [...] Acute COPD Exacerbation who re-presents to the [facility] ED on 12/17/24 w/ severe dysarthria [...] Acute COPD Exacerbation who re-presents to the [facility] ED on 12/17/24 w/ severe dysarthria [...] prophylaxis. Once patient requires PEG tube and usp facility placement is pre-CERT obtained will transition [...] he had reported lacking healthcare power of contracts attorney and living will but had noted he would wanthis ex- Joseph be his medical decision-maker at that time if absolutely necessary. Patient and daughter have been working with healthcare team closely and patient is maintained full code at this time. Charges/Coding Visit Charges Inpatient E&M: 37398 Subs Hosp L3 NIHSS NIHSS Nursing Documentation NIHSS Nursing Documentation: NIHSS: Ischemic Stroke/TIA Start: 12/17/24 18:52 Text: For PCU Patients: NIH and Neuro Check every 4 Status: Complete hours, PRN and with change in RN caregiver. Freq: Q12 Protocol: Activity Type Activity Date Activity User E-sign Co-sign Detail Recorded Client Recorded Date Recorded By Document 12/22/24 08:15 DS [id number] 12/22/24 08:19 DS 12/22/24 08:15 NIH Stroke [...] Rasheeda Signature (if applicable): CC: ~ Signed [facility] Work Phone: [phone] Procedure [facility] 12-23-2024 Procedure [facility]07-07-2025 Progress note Author Paulino Friend [facility] Note Date/Time December 23, 2024 2:46p m [facility] Medical Records Department [address] [place] [address] Progress Note 12/23/24 1445 MR#: [id number] Acct: [id number] Name: PEDRO PABLO SIERRA Rep #:[id number] : 1950 74 From: Paulino Henderson DO PCP: Dr. Daija Morton MD Status:ADM I N Location: [place] [address] Progress Note Patient with esophageal dysphagia. She [...] ASA of 3. Visit Charges Inpatient E&M: 70379 Subs Hosp L2 12/23/24 1446 <Electronically signed by Paulino Friend DO> Paulino Friend DO Cosigner Signature (if applicable): CC: ~ Signed [facility] Work Phone: [phone] 165-311107-07-2025 Consult note Author Kyaw Borrego [facility] Note Date/Time December 23, 2024 2:02p m [facility] Medical Records Department [address] [place] [address] Pre-Anesthesia Evaluation 12/23/24 1400 MR#: [id number] Acct: [id number] Name: PEDRO PABLO SIERRA Rep #:[id number] : 1950 74 From: Kyaw Borrego MD PCP: Dr. Daija Morton MD Status:ADM I N Y Race: C Location: [place] [address] 1-1 ASA Classification* ASA Classification ASA Classification: [...] PEG placement. 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 - stewarding supervisor: Anesthesia History - stewarding supervisor Hx Hospitalization Yes 08/08/20 16:59 Any Problems [...] take am of surgery PONV PONV - stewarding supervisor: PONV - stewarding supervisor Female HX of Motion Sickness HX of N/V After Surgery Non-Smoker Duration of Surgery greater than 60 minutes Number of Risk Factors PONV Score Height & Weight Height & Weight: Anesthesia: Height & Weight Height 5 ft 8 in 12/23/24 09:50 Weight: 73 kg 12/23/24 09:50 Body Mass Index (BMI) 24.5 12/23/24 09:00 Respiratory Assessment Respiratory Assessment - stewarding supervisor: Respiratory Tract Infection Hx - stewarding supervisor Hx Respiratory Tract Infection No 12/23/24 09:15 STOP Sleep Apnea STOP Sleep Apnea - stewarding supervisor: STOP Sleep Apnea - stewarding supervisor Hx Hypertension Yes 12/23/24 09:06 Hx Sleep [...] Tobacco Use History Tobacco Use History - stewarding supervisor: Tobacco Use History - stewarding supervisor Tobacco Use Cigarettes 12/23/24 09:06 Smoking Status Current every day smoker 12/23/24 09:06 Hx Tobacco Use Yes 12/17/24 20:07 Years Smoking Packs Smoked per Day Smoking Cessation Date was within the last 15 years Hx Smoking Cessation Date Hx Smoking Cessation No 12/23/24 09:06 Counseling Hematologic Medial History Hematologic Hx - stewarding supervisor: Hematologic Medical Hx - document image technician Hx of Blood Transfusion Hx of Transfusion in last 3 Months Date of Last Transfusion (if within last 3 months) Ever experience any problems with transfusion(s)? Specify any problems Hx of Preganancy in last 3 Months Nurse Filling Out Transfusion & Questions: Date: Time: Patient unable to answer at Yes 12/17/24 20:07 this time (ie. confused, unrespo /Reproduction History /Reproductive History - stewarding supervisor: /Reproductive Hx- stewarding supervisor Hx Now Gestational Age (in weeks): EDC: [...] mls @ 15 mls/hr 12/17/24 19:51 IV .[id number] PRN Saline Flush Sodium Chloride 250 mls @ 15 mls/hr 12/17/24 19:51 IV .[id number] PRN Additional IVPB Infusion Levetiracetam 1,000 mg in 100 mls @ 400 mls/hr 12/17/24 22:00 12/23/24 09:45 IV Infused Q12 LEON Infusion Pantoprazole Sodium 40 mg/ 100 mls @ 300 mls/hr 12/19/24 10:00 12/23/24 09:26 Sodium Chloride IV Infused Q24 LEON Infusion Lactated Ringer's 1,000 mls @ 75 mls/hr 12/18/24 15:30 12/23/24 13:10 IV 0 mls/hr .T28C06D LEON Infusion Thiamine HCl 250 mg/ Sodium [...] 40 Mg Tablet PO Not Given DAILY [facility] Senna/Docusate Sodium 1 tablet 12/17/24 18:52 Senna/Docusate Sodium 1 Tablet PO BID PRN PRN Constipation Sertraline HCl 100 mg 12/18/24 10:00 12/18/24 09:52 Sertraline 100 Mg Tablet PO Not Given DAILY [facility] Sodium Chloride 10 - 40 ml 12/17/24 19:51 12/23/24 13:09 0.9% Saline Lock 10 Ml Syringe IV 10 ml UD PRN Administration SALINE FLUSH Tamsulosin HCl 0.4 mg 12/18/24 22:00 Tamsulosin Hcl 0.4 Mg Capsule PO QHS [facility] Medical History Weakness Debility Failure [...] MD Cosigner Signature: Date CC: ~ Signed [facility] Work Phone: [phone] Hospital Discharge instructionsAdditional Instructions ADDITIONAL DISCHARGE INSTRUCTIONS/INFORMATION: [...] continued nutrition consultation and evaluation at the [facility] facility for ongoing assessments and alteration to [...] which appears recent baseline. Date of Discharge: 12/26/24[facility] Work Phone: [phone]) [phone] Progress note Author Lisha Talamantes [facility] Note Date/Time December 22, 2024 3:35p gabino [facility] Medical Records Department [address] [place] [address] Progress Note - Hospitalist 12/22/24 1534 MR#: [id number] Acct: [id number] Name: PEDRO PABLO SIERRA R Rep #:[id number] : 1950 74 From: Lisha Talamantes DO PCP: Dr. Daija Morton MD Status:ADM I N Location: [place] [address] Hospitalist Note Extensive conversation with POA's at [...] Cosigner Signature (if applicable): CC: ~ Signed [facility] Work Phone: [phone]) [phone] Progress note Author Lisha Talamantes [facility] Note Date/Time December 22, 2024 1:13p m [facility] Medical Records Department [address] [place] [address] Progress Note - Hospitalist 12/22/24 0733 MR#: [id number] Acct: [id number] Name: PEDRO PABLO SIERRA R Rep #:[id number] : 1950 74 From: Lisha Talamantes DO PCP: Dr. Daija Morton MD Status:ADM I N Location: [place] [address] Reason for Visit Reason for Visit: facial [...] Full code Charges/Coding Visit Charges Inpatient E&M: 43753 Subs Hosp L2 NIHSS NIHSS Nursing Documentation NIHSS Nursing Documentation: NIHSS: Ischemic Stroke/TIA Start: 12/17/24 18:52 Text: For PCU Patients: NIH and Neuro Check every 4 Status: Active hours, PRN and with change in RN caregiver. Freq: Q12 Protocol: Activity Type Activity Date Activity User E-sign Co-sign Detail Recorded Client Recorded Date Recorded By Document 12/21/24 21:20 [id number] 12/21/24 21:19 12/21/24 21:20 NIH Stroke Scale [...] Cosigner Signature (if applicable): CC: ~ Signed [facility] Work Phone: [phone] Progress note Author Maya Talamantes [facility] Note Date/Time December 22, 2024 9:18a m [facility] Medical Records Department [address] [place] [address] Progress Note - Neurology 12/22/24913 MR#: [id number] Acct: [id number] Name: PEDRO PABLO SIERRA Rep #:[id number] : 1950 74 From: Maya Talamantes MD PCP: Dr. Daija Morton MD Status:ADM I N Location: [place] [address] Objective Data Objective Data Vital Signs: Vital [...] on keppra, PVD, and CDwho presented to [facility] ED on 12/17/2024 with dysarthria and right-sided [...] Continue daily anti-platelet med (Asa) for now. 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 [...] Date Recorded By Document 12/22/24 08:15 DS [id number] 12/22/24 08:19 DS 12/22/24 08:15 NIH Stroke [...] Cosigner Signature (if applicable): CC: ~ Signed [facility] Work Phone: [phone] Progress note Author Maya Talamantes [facility] Note Date/Time December 21, 2024 1:50p m [facility] Medical Records Department [address] [place] [address] Progress Note - Neurology 12/21/24 1336 MR#: [id number] Acct: [id number] Name: PEDRO PABLO SIERRA Rep #:[id number] : 1950 74 From: Maya Talamantes MD PCP: Dr. Daija Morton MD Status:ADM I N Location: [place] [address] Objective Data Objective Data Vital Signs: Vital [...] 75.1 H, Lymph % (Auto) 14.2 L, Addison % (Auto) 8.5, Eos % (Auto) 1.2, [...] on keppra, PVD, and CDwho presented to [facility] ED on 12/17/2024 with dysarthria and right-sided [...] Continue daily anti-platelet med (Asa) for now. residential will need AC for Afib stroke prevention [...] Date Recorded By Document 12/21/24 08:35 DS [id number] 12/21/24 11:09 DS 12/21/24 08:35 NIH Stroke [...] Cosigner Signature (if applicable): CC: ~ Signed [facility] Work Phone: [phone] Progress note Author Lisha Talamantes [facility] Note Date/Time December 21, 2024 1:11p m [facility] Medical Records Department [address] [place] [address] Progress Note - Hospitalist 12/21/24 1243 MR#: [id number] Acct: [id number] Name: PEDRO PABLO SIERRA Rep #:[id number] : 1950 74 From: Lisha Talamantes DO PCP: Dr. Daija Morton MD Status:ADM I N [facility] Reason for Visit Reason for Visit: [...] 75.1 H, Lymph % (Auto) 14.2 L, Addison % (Auto) 8.5, Eos % (Auto) 1.2, [...] Full code Charges/Coding Visit Charges Inpatient E&M: 15416 Subs Hosp L2 NIHSS NIHSS Nursing Documentation NIHSS Nursing Documentation: NIHSS: Ischemic Stroke/TIA Start: 12/17/24 18:52 Text: For PCU Patients: NIH and Neuro Check every 4 Status: Active hours, PRN and with change in RN caregiver. Freq: Q12 Protocol: Activity Type Activity Date Activity User E-sign Co-sign Detail Recorded Client Recorded Date Recorded By Document 12/21/24 08:35 DS [id number] 12/21/24 11:09 DS 12/21/24 08:35 NIH Stroke [...] Cosigner Signature (if applicable): CC: ~ Signed [facility] Work Phone: [phone] Progress note Author Lisha Talamantes [facility] Note Date/Time December 20, 2024 12:05 pm [facility] Medical Records Department [address] [place] [address] Progress Note - Hospitalist 12/20/24 0717 MR#: [id number] Acct: [id number] Name: PEDRO PABLO SIERRA Rep #:[id number] : 1950 74 From: Lisha Talamantes DO PCP: Dr. Daija Morton MD Status:ADM I N Location: [place] [address] Reason for Visit Reason for Visit: Difficulty [...] 79.1 H, Lymph % (Auto) 9.9 L, Addison % (Auto) 8.5, Eos % (Auto) 1.2, [...] in the right maxillary sinus. [facility] Const alert, no [...] Full code Charges/Coding Visit Charges Inpatient E&M: 84462 Subs Hosp L2 NIHSS NIHSS Nursing Documentation NIHSS Nursing Documentation: NIHSS: Ischemic Stroke/TIA Start: 12/17/24 18:52 Text: For PCU Patients: NIH and Neuro Check every 4 Status: Active hours, PRN and with change in RN caregiver. Freq: [id number] Protocol: Activity Type Activity Date Activity User E-sign Co-sign Detail Recorded Client Recorded Date Recorded By Document 12/20/24 05:53 MB [id number] 12/20/24 05:55 MB 12/20/24 05:53 NIH Stroke [...] Cosigner Signature (if applicable): CC: ~ Signed [facility] Work Phone: [phone]) [phone] Progress note Author René Reno [facility] Note Date/Time December 20, 2024 11:53 am [facility] Medical Records Department [address] [place] [address] Progress Note - Neurology 12/20/24 1107 MR#: [id number] Acct: [id number] Name: PEDRO PABLO SIERRA Rep #:[id number] : 1950 74 From: René Damon PCP: Dr. Daija Morton MD Status:ADM I N Location: [place] [address] Objective Data Objective Data Vital Signs: Vital [...] 79.1 H, Lymph % (Auto) 9.9 L, Addison % (Auto) 8.5, Eos % (Auto) 1.2, [...] awaiting PEG tube on Monday, failed with SUPERVISOR OVENS. No NGT. EEG Results Procedure Details EEG [...] is controlled. Would prefer a DOAC for jail AC. I would recommend re-evaluation of candiacy for AC despite the fall risk as the patient has an high risk of future embolic events ([id number] 10, HASBLED 4). His risk of a [...] goal <7, BP goal is 120/80 -recommend PT/OT/SUPERVISOR OVENS consult. Will likely need PEG. consider NGT [...] Recorded Date Recorded By Document 12/20/24 09:41 [id number] 12/20/24 09:46 12/20/24 09:41 NIH Stroke Scale [...] Cosigner Signature (if applicable): cc: ~* Signed [facility] Work Phone: [phone] 950-418307-03-2025 Progress note Author Lisha Talamantes [facility] Note Date/Time December 19, 2024 4:09p m [facility] Medical Records Department [address] [place] [address] Progress Note - Hospitalist 12/19/24 0810 MR#: [id number] Acct: [id number] Name: PEDRO PABLO SIERRA Rep #:[id number] : 1950 74 From: Lisha Talamantes DO PCP: Dr. Daija Morton MD Status:ADM I N Location: [place] [address] Reason for Visit Reason for Visit: Difficulty [...] 81.3 H, Lymph % (Auto) 9.0 L, Addison % (Auto) 6.6, Eos % (Auto) 1.9, [...] normal LV systolic function. Ordering Physician: Lisha Talamantse Referring Physician: Daija Morton Performed By: Susie [...] in the right maxillary sinus. Reading Location: [facility] Physical Exam Const alert, no apparent [...] Full code Charges/Coding Visit Charges Inpatient E&M: 95457 Subs Hosp L2 NIHSS NIHSS Nursing Documentation NIHSS Nursing Documentation: NIHSS: Ischemic Stroke/TIA Start: 12/17/24 18:52 Text: For PCU Patients: NIH and Neuro Check every 4 Status: Active hours, PRN and with change in RN caregiver. Freq: [id number] Protocol: Activity Type Activity Date Activity User E-sign Co-sign Detail Recorded Client Recorded Date Recorded By Document 12/19/24 07:15 [id number] 12/19/24 07:43 12/19/24 07:15 NIH Stroke Scale [...] Cosigner Signature (if applicable): CC: ~ Signed [facility] Work Phone: 1(601) 460-953007-02-2025 Progress note Author Lisha Talamantes [facility] Note Date/Time December 18, 2024 2:59p m [facility] Medical Records Department [address] [place] [address] Progress Note - Hospitalist 12/18/24 1445 MR#: [id number] Acct: [id number] Name: PEDRO PABLO SIERRA Shannan Rep #:[id number] : 1950 74 From: Lisha Talamantes DO PCP: Dr. Daija Morton MD Status:ADM I NO Location: [place] [address] Reason for Visit Reason for Visit: Diagnoses [...] (Auto) 77.5 H, Lymph % (Auto) 12.1 L,Addison % (Auto) 7.8, Eos % (Auto) 1.1, [...] as noted. Findings were called to the [facility] emergency department on 12/17/2024 at 4:35 p.m. Reading Location: [id number] Head/Neck CTA 12/17/24 15:53 IMPRESSION: Right ICA stenosis of 75%. Left ICA stenosis of 50%. Additional atherosclerosis as above. Biapical pulmonary scarring and emphysema. Reading Location: [id number] Chest X-Ray 12/17/24 15:54 IMPRESSION: Hyperaerated lungs which can suggest COPD. Stable scarring. Reading Location: [id number] Echocardiogram 12/18/24 07:27 Interpretation Summary Technically difficult [...] Full code Charges/Coding Visit Charges Inpatient E&M: 45568 Subs Hosp L2 NIHSS NIHSS Nursing Documentation NIHSS Nursing Documentation: NIHSS: Ischemic Stroke/TIA Start: 12/17/24 18:52 Text: For PCU Patients: NIH and Neuro Check every 4 Status: Active hours, PRN and with change in RN caregiver. Freq: [id number] Protocol: Activity Type Activity Date Activity User E-sign Co-sign Detail Recorded Client Recorded Date Recorded By Document 12/18/24 13:40 [id number] 12/18/24 13:43 12/18/24 13:40 NIH Stroke Scale [...] e [Total] -Coma Scale Total 12 12/18/24 145 <Electronically signed by Lisha Talamantes DO> Cosigner Signature (if applicable): CC: ~ Signed [facility] Work Phone: 1(846) 686-986907-02-2025 Consult note Author Amy Chun [facility] Note Date/Time December 18, 2024 1:13p m [facility] Medical Records Department [address] [place] [address] Consultation - Neurology 12/18/24 1249 MR#: [id number] Acct: [id number] Name: PEDRO PABLO SIERRA Rep #:[id number] : 1950 74 From: Amy Chun MD PCP: Dr. 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 Please call with questions HPI Consult Data Date of Consult: 12/18/24 HPI Narrative HPI Narrative: PEDRO PABLO SIERRA, is a 74 M who presents who presented to [facility] on 12/17/2024 with dysarthria and [...] stenosis of 50%, no other acute findings. PENDING SALE TO [facility] Medical History Weakness Debility Failure to thrive [...] (Auto) 77.5 H, Lymph % (Auto) 12.1 L,Addison % (Auto) 7.8, Eos % (Auto) 1.1, [...] as noted. Findings were called to the [facility] emergency department on 12/17/2024 at 4:35 p.m. Reading Location: [id number] Head/Neck CTA 12/17/24 15:53 IMPRESSION: Right ICA stenosis of 75%. Left ICA stenosis of 50%. Additional atherosclerosis as above. Biapical pulmonary scarring and emphysema. Reading Location: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 Admission: 08/27/24 Date of [...] diarrhea, generalized weakness after recent discharge from [facility]. Patient was found to have UTI, ESBL E. coli. He also has mild COPD exacerbation. # Generalized weakness/debility/failure to thrive -Patient recently had been at [facility] and was discharged 08/20/2024 buthas been having [...] and DC plan in place -08/30: Awaiting [facility] and APS determinations about payee so that patient can be placed at [facility], further dispo pending this -08/31: Patient accepted [...] Long-Term Facility Charges/Coding Visit Charges Inpatient E&M: 52928 Disch Hosp >30min 09/02/24 1509 <Electronically signed by Brody Maynard MD> Cosigner Signature (if applicable): CC: Dr. Daija Morton MD; Dr. Brody Maynard MD~ Signed [facility] Work Phone: [phone]) 261-684103-17-2025 Consult note Author Shanell Hyatt [facility] Note Date/Time September 02, 2024 9:3 5pm [facility] Medical Records Department [address] [place] [address] Counseling Note - Pharmacy 09/02/24 1507 MR#: [id number] Acct: [id number] Name: PEDRO PABLO SIERRA Rep #:[id number] : 1950 74 From: Shanell Hyatt PCP: Dr. Daija Morton MD Status:ADM I N Y Location: [place] [address] Pharmacy [place] Med Reconciliation Pharmacy Service has performed discharge [...] Signature (if applicable): Date CC: ~ Signed [facility] Work Phone: [phone]) 708-185403-17-2025 Discharge summary Author Brody Maynard [facility] Note Date/Time September 02, 2024 2:5 8pm [facility] Medical Records Department [address] [place] [address] Transfer to [facility] MR#: [id number] Acct: [id number] Name: PEDRO PABLO SIERRA Rep #:[id number] : 1950 74 From: Brody Damon PCP: [...] SERVICES PRIOR TO HIS/HER TRANSFER TO THE [facility]. 09/02/24 1458<Electronically signed by Brody Maynard MD> [...] to thrive -Patient recently had been at [facility] and was discharged 08/20/2024 buthas been having [...] and DC plan in place -08/30: Awaiting [facility] and APS determinations about payee so that patient can be placed at [facility], further dispo pending this -08/31: Patient accepted [...] Order can be placed): Long-Term Facility 09/02/24 2583 <Electronically signed by Brody Maynard MD> Cosigner Signature (if applicable): CC: Dr. Daija Morton MD; Dr. Lisha Talamantes DO; Dr. Celia Toribio MD; Dr. Ashley MD ~ [facility] Work Phone: [phone]) 396-175903-17-2025 Progress note Author [facility] Note Date/Time September 02, 2024 2:2 8pm [facility] Medical Records Department [address] [place] [address] Progress Note - Infect Disease 09/02/24 1425 MR#: [id number] Acct: [id number] Name: PEDRO PABLO SIERRA Rep #:[id number] : 1950 74 From: Elton pierce MD PCP: Dr. Daija Morton MD Status:ADM I N Location: [place] [address] Physical Exam Narrative C/o some dysuria. No [...] Cosigner Signature (if applicable): CC: ~ Signed [facility] Work Phone: 1(274) 398-432103-17-2025 Discharge summary [facility] Medical Records Department [address] [place] [address] Discharge Summary 09/02/24 1459 MR#: [id number] Acct: [id number] Name: PEDRO PABLO SIERRA Rep #:[id number] : 1950 74 From: Brody Damon PCP: Dr. Daija Morton MD Status:ADM I N Location: [place] [address]-1 Providers Date of Admission: 08/27/24 Date of [...] diarrhea, generalized weakness after recent discharge from [facility]. Patient was found to have UTI, ESBL E. coli. He also has mild COPD exacerbation. # Generalized weakness/debility/failure to thrive -Patient recently had been at [facility] and was discharged 08/20/2024 buthas been having [...] and DC plan in place -08/30: Awaiting [facility] and APS determinations about payee so that patient can be placedat [facility], further dispo pending this -08/31: Patient accepted [...] Long-Term Facility Charges/Coding Visit Charges Inpatient E&M: 64324 Disch Hosp >30min 09/02/24 1509 Cosigner Signature (if applicable): CC: Dr. Daija Morton MD; Dr. Brody Maynard MD~ Signed [facility]03-17-20[facility] Discharge summary [facility] Medical Records Department [address] [place] [address] Transfer to [facility] MR#: [id number] Acct: [id number] Name: PEDRO PABLO SIERRA Rep #:[id number] : 1950 74 From: Brody Damon PCP: Dr. Daija Morton MD Status:ADM I N Certification of patient admission REQUIRED AT TIME OF ADMISSION. I CERTIFY THAT [facility] SERVICES ARE REQUIRED TO BE GIVEN ON AN IN-PATIENT BASIS BECAUSE OF THE ABOVE NAMED PATIENT'S NEED FOR SENIOR CARE CARE ON A CONTINUING BASIS FOR THE CONDITION(S) FOR WHICH HE/SHE WAS RECEIVING IN-PATIENT HOSPITAL SERVICES PRIOR TO HIS/HER TRANSFER TO THE [facility]. 09/02/24 1458 Diet Diet Order/Speech Therapy: 08/25/24 19:21 Diet: Cardiac - Heart Healthy Food consistency:: Regular Liquid Consistency:: Regular/Thin DC O2, CPAP, BIPAP needs Home O2 Discharge instructions: No Problem/Diagnosis (1) Weakness: Status: Acute Code(s): R53.1 - Weakness (2) Acute diarrhea: Status: Acute Code(s): R19.7 - Diarrhea, unspecified Plan # Generalized weakness/debility/failure to thrive -Patient recently had been at [facility] and was discharged 08/20/2024 buthas been having [...] and DC plan in place -08/30: Awaiting [facility] and APS determinations about payee so that patient can be placedat [facility], further dispo pending this -08/31: Patient accepted [...] Order can be placed): Long-Term Facility 09/02/24 3443 Cosigner Signature (if applicable): CC: Dr. Daija Morton MD; Dr. Lisha Talamantes DO; Dr. Celia Toribio MD; Dr. Ashley MD ~ [facility]03-17-2025 Progress note [facility] Medical Records Department [address] [place] [address] Progress Note - Infect Disease 09/02/24 1425 MR#: [id number] Acct: [id number] Name: PEDRO PABLO SIERRA Rep #:[id number] : 1950 74 From: Elton pierce MD PCP: Dr. Daija Morton MD Status:ADM I N Location: [place] [address] Physical Exam Narrative C/o some dysuria. No [...] Cosigner Signature (if applicable): CC: ~ Signed [facility]03-16-2025 Progress note Author Celia Toribio [facility] Note Date/Time September 01, 2024 11: 27am [facility] Medical Records Department [address] [place] [address] Progress Note - Hospitalist 09/01/24 0758 MR#: [id number] Acct: [id number] Name: PEDRO PABLO SIERRA Rep #:[id number] : 1950 74 From: Celia Toribio MD PCP: Dr. Daija Morton MD Status:ADM I N Location: [place] [address] Reason for Visit Reason for Visit: Diagnoses [...] (Auto) 70.9 H, Lymph % (Auto) 20.9, Addison % (Auto) 6.2, Eos % (Auto) 0.4, [...] to thrive -Patient recently had been at [facility] and was discharged 08/20/2024 buthas been having diarrhea since that time -May be due to diarrhea but cannot say definitively, checking UA -PT/OT -08/27: UA ordered, yet to be collected, will follow-up, continue to work with physical therapy, case management social work following -08/28: Patient now agreeable to placement, placement avenues been pursued -08/29: Patient pending acceptance and pre-CERT for [facility], patient stable and willbe cleared for discharge once antibiotic and DC plan in place -08/30: Awaiting [facility] and APS determinations about payee so that patient can be placed at [facility], further dispo pending this -08/31: Patient accepted [...] Toribio MD Charges/Coding Visit Charges Inpatient E&M: 70305 Subs Hosp L1 09/01/24 1506 <Electronically signed by Celia Toribio MD> Cosigner Signature (if applicable): CC: ~ Signed [facility] Work Phone: [phone]) 535-487703-16-2025 Progress note [facility] Medical Records Department [address] [place] [address] Progress Note - Hospitalist 09/01/24 0758 MR#: [id number] Acct: [id number] Name: PEDRO PABLO SIERRA Rep #:[id number] : 1950 74 From: Celia Toribio MD PCP: Dr. Daija Morton MD Status:ADM I N Location: [place] [address] Reason for Visit Reason for Visit: Diagnoses [...] %(Auto) 70.9 H, Lymph % (Auto) 20.9, Addison % (Auto) 6.2, Eos % (Auto) 0.4, [...] to thrive -Patient recently had been at [facility] and was discharged 08/20/2024 buthas been having [...] and DC plan in place -08/30: [facility] about payee so that patient can be placedat [facility], further dispo pending this -08/31: Patient accepted [...] Toribio MD Charges/Coding Visit Charges Inpatient E&M: 63364 Subs Hosp L1 09/01/24 1127 Cosigner Signature (if applicable): CC: ~ Signed [facility]03-15-2025 Progress note Author Celia Toribio [facility] Note Date/Time August 31, 2024 12: 30pm [facility] Medical Records Department [address] [place] [address] Progress Note - Hospitalist 08/31/24 0748 MR#: [id number] Acct: [id number] Name: ARIEL SIERRAJAYY Pierce Rep #:[id number] : 1950 74 From: Celia Toribio MD PCP: Dr. Daija Morton MD Status:ADM I N Location: MS3 AL489-4 Reason for Visit Reason for Visit: Diagnoses [...] to thrive -Patient recently had been at [facility] and was discharged 08/20/2024 buthas been having [...] and DC plan in place -08/30: Awaiting [facility] and APS determinations about payee so that patient can be placed at [facility], further dispo pending this -08/31: Patient accepted [...] documentation, 36minutes Charges/Coding Visit Charges Inpatient E&M: 95536 Subs Hosp L2 08/31/24 1230 <Electronically signed by Celia Toribio MD> Cosigner Signature (if applicable): CC: ~ Signed [facility] Work Phone: 1(660) 775-698303-15-2025 Progress note [facility] Medical Records Department [address] [place] [address] Progress Note - Hospitalist 08/31/24 0748 MR#: [id number] Acct: [id number] Name: PEDRO PABLO SIERRA Rep #:[id number] : 1950 74 From: Celia Toribio MD PCP: Dr. Daija Morton MD Status:ADM I N Location: [facility] RY426-2 Reason for Visit Reason for Visit: Diagnoses [...] to thrive -Patient recently had been at [facility] and was discharged 08/20/2024 buthas been having diarrhea since that time -May be due to diarrhea but cannot say definitively, checking UA -PT/OT -08/27: UA ordered, yet to be collected, will follow-up, continue to work with physical therapy, case management social work following -08/28: Patient now agreeable to placement, placement avenues been pursued -08/29: Patient pending acceptance and pre-CERT for [facility], patient stable and willbe cleared for discharge once antibiotic and DC plan in place -08/30: Awaiting [facility] and [facility] determinations about payee so that patient can be placedat [facility], further dispo pending this -08/31: Patient accepted [...] documentation, 36minutes Charges/Coding Visit Charges Inpatient E&M: 32412 Subs Hosp L2 08/31/24 1230 Cosigner Signature (if applicable): CC: ~ Signed [facility]03-14-2025 Consult note Author Elton Moore [facility] Note Date/Time August 30, 2024 1:4 6pm [facility] Medical Records Department [address] [place] [address] Consultation - Infectious Dx 08/30/24 1343 MR#: [id number] Acct: [id number] Name: PEDRO PABLO SIERRA Rep #:[id number] : 1950 74 From: Elton pierce MD PCP: Dr. Daija Morton MD Status:ADM I N Location: [place] [address] Assessment & Plan Assessment/Plan (1) Weakness: (2) [...] performed and neg except as noted above. PENDING SALE TO [facility] Medical History Compression fx, lumbar spine Hypertension [...] (Auto) 64.8, Lymph % (Auto) 17.8 L, Addison % (Auto) 7.6, Eos % (Auto) 7.8 [...] applicable): CC: Dr. Daija Morton MD~ Signed [facility] Work Phone: 1(939) 194-267203-14-2025 Consult note [facility] Medical Records Department [address] [place] [address] Consultation - Infectious Dx 08/30/24 1343 MR#: [id number] Acct: [id number] Name: PEDRO PABLO SIERRA Shannan Rep #:[id number] : 1950 74 From: Elton pierce MD PCP: Dr. Daija Morton MD Status:ADM I N Location: [place] [address] Assessment & Plan Assessment/Plan (1) Weakness: (2) [...] performed and neg except as noted above. PENDING SALE TO [facility] Medical History Compression fx, lumbar spine Hypertension [...] %(Auto) 64.8, Lymph % (Auto) 17.8 L, Addison % (Auto) 7.6, Eos % (Auto) 7.8 [...] applicable): CC: Dr. Daija Morton MD~ Signed [facility]03-14-2025 Progress note Author Celia Toribio [facility] Note Date/Time August 30, 2024 11: 11am [facility] Medical Records Department [address] [place] [address] Progress Note - Hospitalist 08/30/24 0709 MR#: [id number] Acct: [id number] Name: PEDRO PABLO SIERRA Rep #:[id number] : 1950 74 From: Celia Toribio MD PCP: Dr. Daija Morton MD Status:ADM I N Location: [place] [address] Reason for Visit Reason for Visit: Diagnoses [...] (Auto) 64.8, Lymph % (Auto) 17.8 L, Addison % (Auto) 7.6, Eos % (Auto) 7.8 [...] to thrive -Patient recently had been at [facility] and was discharged 08/20/2024 buthas been having diarrhea since that time -May be due to diarrhea but cannot say definitively, checking UA -PT/OT -08/27: UA ordered, yet to be collected, will follow-up, continue to work with physical therapy, case management social work following -08/28: Patient now agreeable to placement, placement avenues been pursued -08/29: Patient pending acceptance and pre-CERT for [facility], patient stable and willbe cleared for discharge once antibiotic and DC plan in place -08/30: Awaiting [facility] and [facility] determinations about payee so that patient can be placed at [facility], further dispo pending this # Urinary tract [...] documentation, 36minutes Charges/Coding Visit Charges Inpatient E&M: 27251 Subs Hosp L2 08/30/24 1111 <Electronically signed by Celia Toribio MD> Cosigner Signature (if applicable): CC: ~ Signed [facility] Work Phone: 1(827) 727-598603-14-2025 Progress note [facility] Medical Records Department [address] [place] [address] Progress Note - Hospitalist 08/30/24 0709 MR#: [id number] Acct: [id number] Name: PEDRO PABLO SIERRA Rep #:[id number] : 1950 74 From: Celia Toribio MD PCP: Dr. Daija Morton MD Status:ADM I N Location: [place] [address] Reason for Visit Reason for Visit: Diagnoses [...] %(Auto) 64.8, Lymph % (Auto) 17.8 L, Addison % (Auto) 7.6, Eos % (Auto) 7.8 [...] to thrive -Patient recently had been at [facility] and was discharged 08/20/2024 buthas been having [...] and DC plan in place -08/30: Awaiting [facility] and APS determinations about payee so that patient can be placedat [facility], further dispo pending this # Urinary tract [...] documentation, 36minutes Charges/Coding Visit Charges Inpatient E&M: 43149 Subs Hosp L2 08/30/24 1111 Cosigner Signature (if applicable): CC: ~ Signed [facility]03-13-2025 Progress note Author Celia Toribio [facility] Note Date/Time August 29, 2024 5:2 5pm [facility] Medical Records Department [address] [place] [address] Progress Note - Hospitalist 08/29/24 0805 MR#: [id number] Acct: [id number] Name: PEDRO PABLO SIERRA Rep #:[id number] : 1950 74 From: Celia Toribio MD PCP: Dr. Daija Morton MD Status:ADM I N Location: [facility] RF500-0 Reason for Visit Reason for Visit: Diagnoses [...] % (Auto) 59.8, Lymph % (Auto) 22.3, Addison % (Auto) 8.0, Eos % (Auto) 8.2 [...] to thrive -Patient recently had been at [facility] and was discharged 08/20/2024 buthas been having [...] documentation, 35minutes Charges/Coding Visit Charges Inpatient E&M: 82291 Subs Hosp L2 08/29/24 1725 <Electronically signed by Celia Toribio MD> Cosigner Signature (if applicable): CC: ~ Signed [facility] Work Phone: 1(753) 392-557803-13-2025 Progress note [facility] Medical Records Department [address] [place] [address] Progress Note - Hospitalist 08/29/24 08 MR#: [id number] Acct: [id number] Name: PEDRO PABLO SIERRA Rep #:[id number] : 1950 74 From: Celia Toribio MD PCP: Dr. Daija Morton MD Status:ADM I N Location: MS3 PD544-8 Reason for Visit Reason for Visit: Diagnoses [...] % (Auto) 59.8, Lymph % (Auto) 22.3, Addison % (Auto) 8.0, Eos % (Auto) 8.2 [...] to thrive -Patient recently had been at [facility] and was discharged 08/20/2024 buthas been having [...] documentation, 35minutes Charges/Coding Visit Charges Inpatient E&M: 58959 Subs Hosp L2 08/29/24 7073 Cosigner Signature (if applicable): CC: ~ Signed [facility]03-12-2025 Progress note Author Celia Toribio [facility] Note Date/Time August 28, 2024 3:0 4pm [facility] Medical Records Department [address] [place] [address] Progress Note - Hospitalist 08/28/24 1458 MR#: [id number] Acct: [id number] Name: PEDRO PABLO SIERRA Rep #:[id number] : 1950 74 From: Celia Toribio MD PCP: Dr. Daija Morton MD Status:ADM I N Location: [place] [address] Reason for Visit Reason for Visit: Diagnoses [...] % (Auto) 55.6, Lymph % (Auto) 23.4, Addison % (Auto) 11.3 H, Eos % (Auto) [...] to thrive -Patient recently had been at [facility] and was discharged 08/20/2024 buthas been having [...] documentation, 35minutes Charges/Coding Visit Charges Inpatient E&M: 74726 Subs Hosp L2 08/28/24 6635 <Electronically signed by Celia Toribio MD> Cosigner Signature (if applicable): CC: ~ Signed [facility] Work Phone: 1([phone]) 411-450603-12-2025 Progress note [facility] Medical Records Department [address] [place] [address] Progress Note - Hospitalist 08/28/24 4557 MR#: [id number] Acct: [id number] Name: PEDRO PABLO SIERRA Rep #:[id number] : 1950 74 From: Celia Toribio MD PCP: Dr. Daija Morton MD Status:ADM I N Location: PA3 OQ096-9 Reason for Visit Reason for Visit: Diagnoses [...] % (Auto) 55.6, Lymph % (Auto) 23.4, Addison % (Auto) 11.3 H, Eos % (Auto) [...] to thrive -Patient recently had been at [facility] and was discharged 08/20/2024 buthas been having [...] documentation, 35minutes Charges/Coding Visit Charges Inpatient E&M: 66635 Subs Hosp L2 08/28/24 1504 Cosigner Signature (if applicable): CC: ~ Signed [facility]03-11-2025 Evaluation note* Diagnosis Onset Date Resolution Status Admit Date Acute diarrhea acute August 6:22pm Debility acute August 27 6:22pm Weakness acute August 27 6:22pm 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 August 172024 6:22pm [facility] Work Phone: [phone] 385-929103-11-2025 Evaluation note* Diagnosis Onset Date Resolution Status Admit Date Acute diarrhea resolved August 6:22pm Debility inactive August 27 6:22pm Failure to thrive inactive August 172024 6:22pm Weakness inactive August 27 6:22pm [facility] Work Phone: [phone] 344-651603-11-2025 Evaluation note* Diagnosis Onset Date Resolution Status Admit Date Acute diarrhea resolved August 6:22pm Debility inactive August 27 6:22pm Failure to thrive inactive August 172024 6:22pm Weakness inactive August 27 6:22pm COPD exacerbation chronic December 132024 8:07pm [facility] Work Phone: [phone]) 853-851803-11-2025 Evaluation note* Diagnosis Onset Date Resolution Status Admit Date Acute diarrhea resolved August 6:22pm Debility inactive August 27 6:22pm Failure to thrive inactive August 172024 6:22pm Weakness inactive August 27 6:22pm Acute on chronic respiratory failure with hypoxia and hypercapnia chronic December 13, 2024 8:07pm COPD exacerbation chronic December 132024 8:07pm [facility] Work Phone: [phone] Evaluation note* Diagnosis Onset Date Resolution Status [...] December 5:51pm Hypertension chronic December 17 5:51pm [facility] Work Phone: [phone]) 375-418503-11-2025 Evaluation note* Diagnosis Onset Date Resolution Status [...] 2 :58pm COPD exacerbation resolved December 2:58pm [facility] Work Phone: [phone]) 813-358003-11-2025 Progress note Author Celia Toribio [facility] Note Date/Time August 27, 2024 4:1 3pm [facility] Medical Records Department [address] [place] [address] Progress Note - Hospitalist 08/27/241612 MR#: [id number] Acct: [id number] Name: PEDRO PABLO SIERRA Shannan Rep #:[id number] : 1950 74 From: Celia Toribio MD PCP: Dr. Daija Morton MD Status:ADM I NO Location: [place] [address] Hospitalist Note Repeat hemoglobin actually improved, suspect that this was then margin of bladder, will DC FOBT 08/27/241612 <Electronically signed by Celia Toribio MD> Cosigner Signature (if applicable): CC: ~ Signed [facility] Work Phone: 1(855) 169-218003-11-2025 Progress note [facility] Medical Records Department [address] [place] [address] Progress Note - Hospitalist 08/27/241612 MR#: [id number] Acct: [id number] Name: PEDRO PABLO SIERRA R Rep #:[id number] : 1950 74 From: Celia Toribio MD PCP: Dr. Daija Morton MD Status:ADM I NO Location: PA3 NT152-9 Hospitalist Note Repeat hemoglobin actually improved, suspect that this was then margin of bladder, will DC FOBT 08/27/24 1613 Cosigner Signature (if applicable): CC: ~ Signed [facility]03-11-2025 Progress note Author [facility] Note Date/Time August 27, 2024 1:3 2pm [facility] Medical Records Department [address] [place] [address] Progress Note - Hospitalist 08/27/24 1332 MR#: [id number] Acct: [id number] Name: PEDRO PABLO SIERRA R Rep #:[id number] : 1950 74 From: Celia Toribio MD PCP: Dr. Daija Morton MD Status:ADM I NO Location: [place] [address] Hospitalist Note UA abnormal and is suggestive of UTI and given this and patient suprapubic tenderness we will start patient on Rocephin and await urine culture 08/27/24 1332 <Electronically signed by Celia Toribio MD> Cosigner Signature (if applicable): CC: ~ Signed [facility] Work Phone: [phone]) 966-628003-11-2025 Progress note Author [facility] Note Date/Time August 27, 2024 12: 52pm [facility] Medical Records Department [address] [place] [address] Progress Note - Hospitalist 08/27/24 0831 MR#: [id number] Acct: [id number] Name: PEDRO PABLO SIERRA R Rep #:[id number] : 1950 74 From: Celia Toribio MD PCP: Dr. Daija Morton MD Status:ADM I NO Location: PA3 YG627-9 Reason for Visit Reason for Visit: Diagnoses [...] Neut % (Auto) 56.2, Lymph % (Auto) 23.0,Addison % (Auto) 13.1 H, Eos % (Auto) [...] to thrive -Patient recently had been at [facility] and was discharged 08/20/2024 buthas been having [...] documentation, 36minutes Charges/Coding Visit Charges Inpatient E&M: 59483 Subs Hosp L2 08/27/24 1252 <Electronically signed by Celia Toribio MD> Cosigner Signature (if applicable): CC: ~ Signed [facility] Work Phone: [phone]) 673-400003-11-2025 Progress note [facility] Medical Records Department [address] [place] [address] Progress Note - Hospitalist 08/27/24 1332 MR#: [id number] Acct: [id number] Name: PEDRO PABLO SIERRA Rep #:[id number] : 1950 74 From: Celia Toribio MD PCP: Dr. Daija Morton MD Status:ADM I NO Location: MS3 SZ446-5 Hospitalist Note UA abnormal and is suggestive of UTI and given this and patient suprapubic tenderness we will startpatient on Rocephin and await urine culture 08/27/24 1332 Cosigner Signature (if applicable): CC: ~ Signed [facility]03-11-2025 Progress note [facility] Medical Records Department [address] [place] [address] Progress Note - Hospitalist 08/27/24 0831 MR#: [id number] Acct: [id number] Name: PEDRO PABLO SIERRA Rep #:[id number] : 1950 74 From: Celia Toribio MD PCP: Dr. Daija Morton MD Status:ADM I NO Location: MS3 PU248-9 Reason for Visit Reason for Visit: Diagnoses [...] Neut % (Auto) 56.2, Lymph % (Auto) 23.0,Addison % (Auto) 13.1 H, Eos % (Auto) [...] to thrive -Patient recently had been at [facility] and was discharged 08/20/2024 buthas been having [...] documentation, 36minutes Charges/Coding Visit Charges Inpatient E&M: 48981 Subs Hosp L2 08/27/24 1252 Cosigner Signature (if applicable): CC: ~ Signed [facility]03-10-2025 Progress note Author Celia Toribio [facility] Note Date/Time August 26, 2024 4:5 4pm [facility] Medical Records Department [address] [place] [address] Progress Note - Hospitalist 08/26/24906 MR#: [id number] Acct: [id number] Name: PEDRO PABLO SIERRA Rep #:[id number] : 1950 74 From: Celia Toribio MD PCP: Dr. Daija Morton MD Status:ADM I NO Location: [place] [address] Reason for Visit Reason for Visit: Diagnoses [...] 78.4 H, Lymph % (Auto) 10.3 L, Addison % (Auto) 9.9, Eos % (Auto) 0.3, [...] % (Auto) 60.3, Lymph % (Auto) 19.8, Addison% (Auto) 15.2 H, Eos % (Auto) 3.4, [...] IMPRESSION: No acute airspace abnormality. Reading Location: [facility] Physical Exam Narrative General: Alert, [...] to thrive -Patient recently had been at [facility] and was discharged 08/20/2024 buthas been having [...] Toribio MD Charges/Coding Visit Charges Inpatient E&M: 33624 Subs Hosp L2 08/26/24 4009 <Electronically signed by Celia Toribio MD> Cosigner Signature (if applicable): CC: ~ Signed [facility] Work Phone: [phone]) 656-892903-10-2025 Progress note [facility] Medical Records Department [address] [place] [address] Progress Note - Hospitalist 08/26/24906 MR#: [id number] Acct: [id number] Name: PEDRO PABLO SIERRA Rep #:[id number] : 1950 74 From: Celia Toribio MD PCP: Dr. Daija Morton MD Status:ADM I NO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 12:52 PM EDT Provider agrees to follow at this time. Anjel Braga APRN.CNP 05-23-2024 Telephone encounter Note* Telephone Encounter - Jacquie Barnes - 11/09/2023 11:17 AM EDT [facility] called asking if provider or RELEASE MANAGER would be willing to follow for on going home care orders (Patient being discharged from [facility]) Please advise Work Phone: 1([phone]) 516-863505-02-2024 Telephone encounter Note* Telephone Encounter - Harriett Albert APRN.CNS - 10/19/2023 4:49 PM EDT Noted 05-02-2024 Miscellaneous Notes* Telephone Encounter - Harriett Albert APRN.CNS - 10/19/2023 4:49 PM EDT Noted * Telephone Encounter - Nani Webb LPN - 10/19/2023 4:17 PM EDT FYI: Lit, personal caregiver with [facility] calling to let you know pt is now approved for MyCare Waiver. Pt will be receiving MyCare [employer] Waiver. Pt is still in correction [facility]. Nani Webb LPN documented in this encounter05-02-2024 Telephone encounter Note * Telephone Encounter - Nani Webb LPN - 10/19/2023 4:17 PM EDT FYI: Lit personal caregiver with [facility] calling to let you know pt is now approved for MyCare Waiver. Pt will be receiving [employer]Care [employer] Waiver. Pt is still in correction [facility]. Nani Webb LPN 03-04-2024 History of Present illness Narrative* Lisa Farley [...] 21, 2023 10:47 AM documented in this encounter02-19-2024 Miscellaneous Notes* Telephone Encounter - Rosaura Bartlett [...] Please advise. Emilie Flowers documented in this encounter02-14-2024 Discharge summary Author Ryan Guerin [facility] August 02, 2023 4:20pm Note Date/Time August 02, 2023 4:00pm [facility] Medical Records Department [address] [place] [address] Transfer to [facility] MR#: [id number] Acct: [id number] Name: PEDRO PABLO SIERRA Rep #:[id number] : 1950 73 From: Ryan Guerin DO [...] SERVICES PRIOR TO HIS/HER TRANSFER TO THE [facility]. 08/02/23 1620<Electronically signed by Ryan Guerin [...] Cardiac / Consistent CHO - consistency per SUPERVISOR OVENS. Monitor need for po supplement pending po [...] Morton MD; Dr. Brody Maynard MD ~ [facility] Work Phone: 1(931) 793-840302-13-2024 Progress note Author [facility] August 01, 2023 3:34pm Note Date/Time August 01, 2023 3:34pm [facility] Medical Records Department [address] [place] [address] Progress Note - Hospitalist 08/01/23 1531 MR#: [id number] Acct: [id number] Name: PEDRO PABLO SIERRA Rep #:[id number] : 1950 73 From: Ryan Guerin DO [...] will need precertification to return to his usp facility. Objective Data Objective Data Vital Signs: [...] 25 minutes Charges/Coding Visit Charges Inpatient E&M: 41938 Subs Hosp L1 08/01/23 8137 <Electronically signed by Ryan Guerin DO> Cosigner Signature (if applicable): CC: ~ Signed [facility] Work Phone: 1(366) 108-748402-12-2024 Progress note Author Ryan Guerin [facility] July 31, 2023 5:02pm Note Date/Time July 31, 2023 4:57pm [facility] Medical Records Department [address] [facility] [place] [address] Progress Note - Hospitalist 07/31/23 9849 MR#: [id number] Acct: [id number] Name: PEDRO PABLO SIERRA Rep #:[id number] : 1950 73 From: Ryan Guerin DO [...] 76.5 H, Lymph % (Auto) 10.9 L, [place]ison % (Auto) 10.7 H, Eos % (Auto) [...] Clarity Clear, Urine pH 7.0, Ur Specific [place] 1.010, Urine Protein 30 H, Urine Glucose [...] 85.0 H, Lymph % (Auto) 7.1 L, [place]ison % (Auto) 7.1, Eos % (Auto) 0.0, [...] 35 minutes Charges/Coding Visit Charges Inpatient E&M: 02478 Subs Hosp L2 07/31/23 1702 <Electronically signed by Ryan Guerin DO> Cosigner Signature (if applicable): CC: ~ Signed [facility] Work Phone: 1(995) 593-225202-12-2024 History and physical note Author Brody Maynard [facility] July 31, 2023 1:01am Note Date/Time July 30, 2023 11:50pm [facility] Medical Records Department [address] [place] [address] H&P Exam - Hospitalist 07/30/23 1807 MR#: [id number] Acct: [id number] Name: PEDRO PABLO SIERRA Rep #:[id number] : 1950 73 From: Brody Damon PCP: [...] 3 to 5 L of oxygen from [facility] came to ED for shortness of breath along with wheezing and cough. halfway, patient was febrile. Patient was found tachypneic [...] 20 mg IV. Patient is further admitted PENDING SALE TO [facility] Medical History Asthma Atrial fibrillation Chronic pain [...] 76.5 H, Lymph % (Auto) 10.9 L, [place] % (Auto) 10.7 H, Eos % (Auto) [...] Clarity Clear, Urine pH 7.0, Ur Specific [place] 1.010, Urine Protein 30 H, Urine Glucose [...] side. 5. Moderate to severe chronic malnutrition: Manual Arts Therapy Teacher consult. Nutritional supplement. 6. History of paroxysmal [...] 76.5 H, Lymph % (Auto) 10.9 L, [place] % (Auto) 10.7 H, Eos % (Auto) [...] Clarity Clear, Urine pH 7.0, Ur Specific [place] 1.010, Urine Protein 30 H, Urine Glucose [...] EST , Charges/Coding Visit Charges Inpatient E&M: 85338 Init Hosp L3 07/31/23 0101 <Electronically signed by Brody Maynard MD> Cosigner Signature (if applicable): CC: Dr. Daija Morton MD; Dr. Brody Maynard MD~ Signed [facility] Work Phone: 1(785) 783-482102-12-2024 Discharge summary Author Huber Alvarado [facility] July 31, 2023 12:08am Note Date/Time July 30, 2023 8:57pm [facility] Medical Records Department [address] [place] [address] Emergency Department Summary 07/30/23 MR#: [id number] Acct: [id number] Name: PEDRO PABLO SIERRA Rep #:[id number] : 1950 73 From: Андрей CORTEZ PCP: [...] here on 24 July, discharged to a correction. Per the correction, the patient was more short of breath, tachypneic, and was wheezing more. Patient is alert and oriented to self. Patient is coarse, not answering to my questions. He is aggressive and is answering. I am not sure ifthis is his baseline. Patient's vital signs are stable on his 3 to 5 L of nasalcannula oxygen, patient is tachypneic. He does have audible wheezing. PENDING SALE TO [facility] <DIEGO Hopper - Last Filed: 07/30/23 22:27> PENDING SALE TO [facility] Medical History Asthma Atrial fibrillation Chronic pain [...] Cannula Oxygen Flow Rate (L/min) 3 3 [facility] <DIEGO Hopper - Last Filed: 07/30/23 22:27> [facility] Lab Data Labs: Laboratory Results - last 24 hr 07/30/23 07/30/23 20:51 21:55 WBC 5.5 RBC 4.07 L Hgb 13.3 Hct 40.4 MCV 99.3 H MCH 32.7 H MCHC 32.9 RDW Std Deviation 48.3 H RDW Coeff of Aly 13.2 Plt Count 262 MPV 9.4 Immature Gran % (Auto) 0.500 Neut % (Auto) 76.5 H Lymph % (Auto) 10.9 L Addison % (Auto) 10.7 H Eos % (Auto) [...] Clarity Clear Urine pH 7.0 Ur Specific [place] 1.010 Urine Protein 30 H Urine Glucose [...] is moving all extremities. Currently at the correction after sustaining a pubic rami fracture. Differential [...] Alvarado MD - Last Filed: 07/31/23 00:08> [facility] Narrative Medical decision making narrative: I have personally performed a face to face assessment of the patient and have reviewed the ANDREW Note. I performed a substantive portion of the visit including all aspects of the following. My echevarria findings include: History: This patient was sent in by correction for increased blood pressure and increased dyspnea [...] think this would be tolerated at the correction. He is tachypneic but not tachycardic. He [...] 76.5 H Lymph % (Auto) 10.9 L [place] % (Auto) 10.7 H Eos % (Auto) [...] Clarity Clear Urine pH 7.0 Ur Specific [place] 1.010 Urine Protein 30 H Urine Glucose [...] A, COPD with acute exacerbation Disposition Disposition: [facility] What to do if you have Problems For any increased pain, shortness of breath, bleeding, nausea or vomiting, chestpain, or any unexpected problems, contact your Primary Care Provider. Call [facility] ([phone]) or report to the closest Emergency Room. Call 911 if necessary. 07/30/232226 <Electronically signed by Андрей CORTEZ> Cosigner Signature (if applicable): 07/31/23 0008 <Electronically signed by Huber Alvarado MD> CC: Dr. Daija Morton MD ~ Signed [facility] Work Phone: 1(268) 121-355102-11-2024 Discharge summary Author Huber Alvarado [facility] July 31, 2023 12:08am Note Date/Time July 30, 2023 8:57pm [facility] Medical Records Department [address] [place] [address] Emergency Department Summary 07/30/23 MR#: [id number] Acct: [id number] Name: PEDRO PABLO SIERRA Rep #:[id number] : 1950 73 From: Андрей CORTEZ PCP: [...] here on 24 July, discharged to a correction. Per the correction, the patient was more short of breath, tachypneic, and was wheezing more. Patient is alert and oriented to self. Patient is coarse, not answering to my questions. He is aggressive and is answering. I am not sure ifthis is his baseline. Patient's vital signs are stable on his 3 to 5 L of nasalcannula oxygen, patient is tachypneic. He does have audible wheezing. PENDING SALE TO [facility] <DIEGO Hopper - Last Filed: 07/30/23 22:27> PENDING SALE TO [facility] Medical History Asthma Atrial fibrillation Chronic pain [...] 76.5 H Lymph % (Auto) 10.9 L [place] % (Auto) 10.7 H Eos % (Auto) [...] Clarity Clear Urine pH 7.0 Ur Specific [place] 1.010 Urine Protein 30 H Urine Glucose [...] is moving all extremities. Currently at the correction after sustaining a pubic rami fracture. Differential [...] Alvarado MD - Last Filed: 07/31/23 00:08> [facility] Narrative Medical decision making narrative: I have personally performed a face to face assessment of the patient and have reviewed the ANDREW Note. I performed a substantive portion of the visit including all aspects of the following. My echevarria findings include: History: This patient was sent in by correction for increased blood pressure and increased dyspnea [...] think this would be tolerated at the correction. He is tachypneic but not tachycardic. He [...] 76.5 H Lymph % (Auto) 10.9 L [place] % (Auto) 10.7 H Eos % (Auto) [...] Clarity Clear Urine pH 7.0 Ur Specific [place] 1.010 Urine Protein 30 H Urine Glucose [...] acute exacerbation Disposition Disposition: Acute Care Hospital [facility] What to do if you have Problems For any increased pain, shortness of breath, bleeding, nausea or vomiting, chestpain, or any unexpected problems, contact your Primary Care Provider. Call [facility] ([phone]) or report to the closest Emergency Room. Call 911 if necessary. 07/30/232226 <Electronically signed by Андрей CORTEZ> Cosigner Signature (if applicable): 07/31/23 000 <Electronically signed by Huber Alvarado MD> CC: Dr. Daija Morton MD ~ Signed [facility] Work Phone: 1(780) 955-796802-01-2024 Miscellaneous Notes* Telephone Encounter - Saundra George [...] Message left on voicemail of Sondra Alejo [phone] to request Pedro Pablo contact the office for further triage. Saundra George RN documented in this encounter01-23-2024 Note. MICRO - Microbiology PROCEDURE: Urine Culture [*1] SOURCE: Urine, Clean Catch BODY SITE: COLLECTED DATE/TIME: 07/10/2023 12:00 EST RECEIVED DATE/TIME: 07/10/2023 16:50 EST START DATE/TIME: 07/10/2023 16:50 EST FREE TEXT SOURCE: FINAL REPORTS Final Report [] Verified Date/Time/Personnel: 07/11/2023 14:00 EST 10,000 - 50,000 cfu/ml Mixed growth consistent with normal urogenital kishore. Performing Locations *1: This test was performed at: [facility], [address] [place] [address], [id number]- , [facility] ([place])05-30-2023 Miscellaneous Notes* Telephone Encounter - Kelly Zelaya [...] you. Kelly Zelaya RN. documented in this encounter12-12-2023 Miscellaneous Notes* Telephone Encounter - Isabella Hdz LPN - 05/30/2023 2:39 PM EST Pharmacy calling requesting refills. Advises that [facility] and theywould like to deliver these meds tomorrow if possible. Last refill Flomax and Proscar 02/28/23 Qty: 30 with 1 refill Last refill lidocaine patches 09/30/22 Qty: 15 with 0 refills JEANNINE 08/27/22 NOV none scheduled Isabella Hdz LPN documented in this encounter12-04-2023 Miscellaneous Notes* Telephone Encounter - Nani Webb LPN - 05/22/2023 10:17 AM EST [facility] called in and message below given. Stella's PH>[phone]. Nani Webb LPN * Telephone Encounter - Sammi Cleaning LPN - 05/19/2023 7:10 PM EST Message left on secure voicemail. Smami Cleaning LPN * Telephone Encounter - Keara Shin MD - 05/19/2023 6:45 PM EST Okay verbal order * Telephone Encounter - Gabino Delgado RN - 05/19/2023 1:33 PM EST [address] Roe [facility]- reports patient will be discharged today with orders for SN & PT. would like to see patient this weekend, and no later than Monday. Requesting verbal order to follow for [facility]. Please phone Etta with verbal: [phone] documented in this encounter10-17-2023 Discharge summary Author Frankie Galindo [facility] April 04, 2023 10:02am Note Date/Time April 04, 2023 9 :21am [facility] Medical Records Department [address] [place] [address] Transfer to [facility] MR#: [id number] Acct: [id number] Name: PEDRO PABLO SIERRA Rep #:[id number] : 1950 72 From: Frankie Galindo MD [...] Requested for PT OT eval and social services counselor to assist with discharge planning 3. Chronic [...] tamsulosin and finasteride 10. DVT prophylaxis ? 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 Will provide chocolate ensure compact tid [...] cbc while on iv abx. Fax to [phone] sennosides-docusate sodium [Stool Softener-Stimulant Laxat] 8.6-50 mg [...] Toribio MD; Dr. Elton Moore MD ~ [facility] Work Phone: 1(548) 556-617010-17-2023 Progress note Author Frankie Galindo [facility] April 04, 2023 9:21am Note Date/Time April 04, 2023 7 :31am [facility] Medical Records Department [address] [place] [address] Progress Note - Hospitalist 04/04/2331 MR#: [id number] Acct: [id number] Name: PEDRO PABLO SIERRA Rep #:[id number] : 1950 72 From: Frankie Galindo MD PCP: Dr. Daija Morton MD Status:ADM I N Location: MS3 QQ255-3 Reason for Visit Reason for Visit: Diagnoses [...] % (Auto) 64.4, Lymph % (Auto) 23.6, Addison % (Auto) 6.3, Eos % (Auto) 3.3, [...] Requested for PT OT eval and social services counselor to assist with discharge planning 3. Chronic [...] documentation, 36minutes. Charges/Coding Visit Charges Inpatient E&M: 42104 Subs Hosp L2 04/04/23 0921 <Electronically signed by Frankie Galindo MD> Cosigner Signature (if applicable): CC: ~ Signed [facility] Work Phone: [phone]) 781-686910-16-2023 Consult note Author Elton Moore [facility] April 03, 2023 5:06pm Note Date/Time April 03, 2023 5 :04pm [facility] Medical Records Department [address] [place] [address] Consultation - Infectious Dx 04/03/23 1703 MR#: [id number] Acct: [id number] Name: PEDRO PABLO SIERRA Rep #:[id number] : 1950 72 From: Elton pierce MD PCP: Dr. Daija Morton MD Status:ADM I N Location: [place] [address] Assessment & Plan Assessment/Plan (1) Acute UTI: [...] performed and neg except as noted above. PENDING SALE TO [facility] Medical History Asthma Atrial fibrillation Chronic pain [...] % (Auto) 63.8, Lymph % (Auto) 22.5, Addison% (Auto) 7.6, Eos % (Auto) 3.9, Baso [...] Toribio MD; Dr. Elton Moore MD~ Signed [facility] Work Phone: [phone]) 814-539110-16-2023 Progress note Author Frankie Galindo [facility] April 03, 2023 10:50am Note Date/Time April 03, 2023 1 0:51am [facility] Medical Records Department [address] [place] [address] Progress Note - Hospitalist 04/03/23 1046 MR#: [id number] Acct: [id number] Name: PEDRO PABLO SIERRA Shannan Rep #:[id number] : 1950 72 From: Frankie Galindo MD PCP: Dr. Daija Morton MD Status:ADM I N Location: [place] [address] Reason for Visit Reason for Visit: Diagnoses [...] % (Auto) 63.8, Lymph % (Auto) 22.5, Addison% (Auto) 7.6, Eos % (Auto) 3.9, Baso [...] Requested for PT OT eval and social services counselor to assist with discharge planning 3. Chronic [...] documentation, 36minutes. Charges/Coding Visit Charges Inpatient E&M: 56335 Subs Hosp L2 04/03/23 1050 <Electronically signed by Frankie Galindo MD> Cosigner Signature (if applicable): CC: ~ Signed [facility] Work Phone: [phone]) 485-895210-15-2023 Progress note Author Frankie Galindo [facility] April 02, 2023 9:12am Note Date/Time April 02, 2023 7 :35am [facility] Medical Records Department [address] [place] [address] Progress Note - Hospitalist 04/02/23 0735 MR#: [id number] Acct: [id number] Name: PEDRO PABLO SIERRA Rep #:[id number] : 1950 72 From: Frankie Galindo MD PCP: Dr. Daija Morton MD Status:ADM I N Location: [place] [address] Reason for Visit Reason for Visit: Diagnoses [...] % (Auto) 58.6, Lymph % (Auto) 23.5, Addison % (Auto) 11.2 H, Eos % (Auto) [...] Requested for PT OT eval and social services counselor to assist with discharge planning 3. Chronic [...] Cosigner Signature (if applicable): CC: ~ Signed [facility] Work Phone: [phone]) 510-705810-15-2023 Progress note Author Fran Cartwright [facility] April 02, 2023 6:53am Note Date/Time April 02, 2023 6 :53am [facility] Medical Records Department [address] [place] [address] Progress Note 04/02/23 0652 MR#: [id number] Acct: [id number] Name: PEDRO PABLO SIERRA R Rep #:[id number] : 1950 72 From: Fran Cartwright MD PCP: Dr. Daija Motron MD Status:ADM I N Location: [place] [address] Progress Note Urine culture returned positive for ESBL E. coli. E. coli is however sensitive to Zosyn in vitro. Cannot be certain whether E. coli will be sensitive in vivo. Zosyn discontinued. Started on Merrem, adjusted for creatinine clearance. 04/02/23652 <Electronically signed by Fran Cartwright MD> Fran Cartwright MD Cosigner Signature (if applicable): CC: ~ Signed [facility] Work Phone: [phone]) 475-800510-14-2023 Progress note Author Frankie Lenolyndsey [facility] April 01, 2023 10:02am Note Date/Time April 01, 2023 7 :53am [facility] Medical Records Department [address] [place] [address] Progress Note - Hospitalist 04/01/23 0751 MR#: [id number] Acct: [id number] Name: MARIELAPEDRO PABLO Pierce Rep #:[id number] : 1950 72 From: Frankie Galindo MD PCP: Dr. Daija Morton MD Status:ADM I N Location: [place] [address] Reason for Visit Reason for Visit: Diagnoses [...] (Auto) 70.2 H, Lymph % (Auto) 15.3 L,Addison % (Auto) 11.0 H, Eos % (Auto) [...] Requested for PT OT eval and social services counselor to assist with discharge planning 3. Chronic [...] tamsulosin and finasteride 10. DVT prophylaxis ? AL Lovenox Time spent in the patient's overall evaluation,decision-making process, review of diagnostic data, adjustment of management, discussion with other providers, nursing nursing and ancillary staff involved in patient's care documentation, 36minutes. Charges/Coding Visit Charges Inpatient E&M: 12085 Subs Hosp L2 04/01/23 1002 <Electronically signed by Frankie Galindo MD> Cosigner Signature (if applicable): CC: ~ Signed [facility] Work Phone: [phone]) 557-475610-13-2023 Progress note Author Celia Toribio [facility] March 31, 2023 11:24am Note Date/Time March 31, 2023 7 :18am [facility] Medical Records Department [address] [place] [address] Progress Note - Hospitalist 03/31/23711 MR#: [id number] Acct: [id number] Name: PEDRO PABLO SIERRA Rep #:[id number] : 1950 72 From: Celia Toribio MD PCP: Dr. Daija Morton MD Status:ADM I N Location: [place] [address] Reason for Visit Reason for Visit: Diagnoses [...] 79.2 H, Lymph % (Auto) 9.3 L, Addison % (Auto) 10.5 H, Eos % (Auto) [...] Sl. Cloudy, Urine pH 6.0, Ur Specific [place] 1.020, Urine Protein 100 H, Urine Glucose [...] 17:14 EDT Reading Location ID and State: [facility] / [place] , Service support , Shoulder X-Ray 03/30/23 [...] 17:12 EDT Reading Location ID and State: [place] / [place] , Service support , Chest X-Ray 03/30/23 [...] documentation, 36minutes. Charges/Coding Visit Charges Inpatient E&M: 76953 Subs Hosp L2 03/31/23 1124 <Electronically signed by Celia Toribio MD> Cosigner Signature (if applicable): CC: ~ Signed [facility] Work Phone: [phone]) 270-354810-12-2023 Discharge summary Author Huber Alvarado [facility] March 30, 2023 8:31pm Note Date/Time March 30, 2023 3 :51pm [facility] Medical Records Department [address] [place] [address] Emergency Department Summary 03/30/23 MR#: [id number] Acct: [id number] Name: PEDRO PABLO SIERRA Shannan Rep #:[id number] : 1950 72 From: Huber Alvarado MD PCP: Dr. Daija Morton MD Status:ADM I N Location: MS3 PL450-4 HPI History of Present Illness Chief Complaint: [...] thinks it is just due to pain. [facility] Medical History (Updated 03/30/23 @ 20:31 [...] 79.2 H Lymph % (Auto) 9.3 L Addison % (Auto) 10.5 H Eos % (Auto) [...] Sl. Cloudy Urine pH 6.0 Ur Specific [place] 1.020 Urine Protein 100 H Urine Glucose [...] 17:14 EDT Reading Location ID and State: [employer] / [place] , Service support , Shoulder X-Ray 03/30/23 [...] Inabilityto walk Disposition Disposition: Acute Care Hospital [facility] What to do if you have Problems For any increased pain, shortness of breath, bleeding, nausea or vomiting, chestpain, or any unexpected problems, contact your Primary Care Provider. Call [facility] ([phone]) or report to the closest Emergency Room. Call 911 if necessary. 03/30/232030 <Electronically signed by Huber Alvarado MD> Cosigner Signature (if applicable): CC: Dr. Daija Morton MD ~ Signed [facility] Work Phone: [phone]) 834-656210-12-2023 History and physical note Author Fran Cartwright [facility] March 30, 2023 8:08pm Note Date/Time March 30, 2023 7 :32pm [facility] Medical Records Department [address] [place] [address] H&P Exam - Hospitalist 03/30/231931 MR#: [id number] Acct: [id number] Name: PEDRO PABLO SIERRA Rep #:[id number] : 1950 72 From: Fran Cartwright MD PCP: Dr. Daija Morton MD Status:ADM I N Location: MS3 WK276-6 HPI - General General Date of Admission: [...] patient has a burning sensation with urination. PENDING SALE TO [facility] Medical History (Updated 03/30/23 @ 20:04 by [...] 79.2 H, Lymph % (Auto) 9.3 L, Addison % (Auto) 10.5 H, Eos % (Auto) [...] Sl. Cloudy, Urine pH 6.0, Ur Specific [place] 1.020, Urine Protein 100 H, Urine Glucose [...] 17:14 EDT Reading Location ID and State: [employer] [facility] [employer] , Service support , Shoulder X-Ray 03/30/23 15:46 IMPRESSION: Mild degenerative disease as described with no acute fracture or subluxation. Electronically Signed: Irish Velásquez MD at 17:15 EDT Reading Location ID and State: [employer] , Service support , Thoracic Spine CT 03/30/23 15:46 IMPRESSION: Diffuse osteopenia/osteoporosis with minimal compression fracture of T11, exact age indeterminate. No retropulsion or extension to the pedicles visualized. Underlying degenerative disease. No subluxation. Electronically Signed: Irish Velásquez MD at 17:12 EDT Reading Location ID and State: [employer] , Service support , Chest X-Ray 03/30/23 16:30 IMPRESSION: No acute cardiac pulmonary disease. Electronically Signed: Irish Velásquez MD at 17:15 EDT Reading Location ID and State: [employer] [facility] [employer] , Service support , Assessment & Plan [...] documentation, 70minutes. Charges/Coding Visit Charges Inpatient E&M: 08385 Init Hosp L3 03/30/232007 <Electronically signed by Fran Cartwright MD> Cosigner Signature (if applicable): CC: Dr. Daija Morton MD; Dr. Fran Cartwright MD~ Signed [facility] Work Phone: [phone]) 425-549710-12-2023 Discharge summary Author Huber Alvarado [facility] March 30, 2023 8:31pm Note Date/Time March 30, 2023 3 :51pm [facility] Medical Records Department [address] [place] [address] Emergency Department Summary 03/30/23 MR#: [id number] Acct: [id number] Name: PEDRO PABLO SIERRA Rep #:[id number] : 1950 72 From: Huber Alvarado MD PCP: Dr. Daija Morton MD Status:ADM I N Location: MS3 CN795-0 HPI History of Present Illness Chief Complaint: [...] thinks it is just due to pain. [facility] Medical History (Updated 03/30/23 @ 20:31 [...] 79.2 H Lymph % (Auto) 9.3 L Addison % (Auto) 10.5 H Eos % (Auto) [...] Sl. Cloudy Urine pH 6.0 Ur Specific [place] 1.020 Urine Protein 100 H Urine Glucose [...] 17:14 EDT [place] Location ID and State: [employer] / [place] , Service support , Shoulder X-Ray 03/30/23 [...] Inabilityto walk Disposition Disposition: Acute Care Hospital [facility] What to do if you have Problems For any increased pain, shortness of breath, bleeding, nausea or vomiting, chestpain, or any unexpected problems, contact your Primary Care Provider. Call [facility] ([phone]) or report to the closest Emergency Room. Call 911 if necessary. 03/30/232030 <Electronically signed by Huber Alvarado MD> Cosigner Signature (if applicable): CC: Dr. Daija Morton MD ~ Signed [facility] Work Phone: [phone])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 retention with incomplete bladder emptying Incomplete bladder emptying Anemia due to acute blood loss Acute posthemorrhagic anemia Lupus anticoagulant disorder ([facility]) Primary hypercoagulable state Chronic bilateral low back pain without sciatica Anxiety and depression Dysthymic disorder Illiterate Educational circumstance Left leg pain Pain in limb [facility]* Diagnosis COPD (chronic obstructive pulmonary disease) ([facility])- Primary Chronic airway obstruction, not elsewhere classified Urinary retention with incomplete bladder emptying Incomplete bladder emptying Anticoagulation goal of INR 2 to 3 Encounter for therapeutic drug monitoring PVD (peripheral vascular disease) ([facility]) Peripheral vascular disease, unspecified Encounter to establish care Other reasons for seeking consultation GI bleeding- Primary Acute posthemorrhagic anemia Lupus anticoagulant disorder ([facility]) Primary hypercoagulable state Dysuria- Primary GI bleeding Acute posthemorrhagic anemia Lupus anticoagulant disorder ([facility]) Primary hypercoagulable state PVD (peripheral vascular disease) ([facility]) Peripheral vascular disease, unspecified IBD (inflammatory bowel disease) Other and unspecified noninfectious gastroenteritis and colitis Blurring of vision Other specified visual disturbances Anticoagulation goal of INR 2 to 3 Encounter for therapeutic drug monitoring Hypertension Unspecified essential hypertension s/p left femoral endarterectomy/aortoiliac stenting 10/2013 Peripheral vascular disease, unspecified Elevated glucose Other abnormal glucose COPD (chronic obstructive pulmonary disease) ([facility]) Chronic airway obstruction, not elsewhere classified Back pain Backache, unspecified PVD (peripheral vascular disease) ([facility])- Primary Peripheral vascular disease, unspecified COPD (chronic obstructive pulmonary disease) ([facility]) Chronic airway obstruction, not elsewhere classified Anticoagulation goal of INR 2 to 3 Encounter for therapeutic drug monitoring Anemia due to acute blood loss Acute posthemorrhagic anemia Hypertension Unspecified essential hypertension Hyperlipidemia Other and unspecified hyperlipidemia Tobacco use disorder Ulcerative colitis (HCC)- Primary Ulcerative colitis, unspecified PVD (peripheral vascular disease) ([facility]) Peripheral vascular disease, unspecified Lupus anticoagulant disorder ([facility]) Primary hypercoagulable state Tobacco use disorder Melena Blood in stool COPD (chronic obstructive pulmonary disease) ([facility]) Chronic airway obstruction, not elsewhere classified Dark urine Other nonspecific finding on examination of urine Hospital discharge follow-up- Primary Other follow-up examination Hypertension Unspecified essential hypertension Hematoma, postoperative Hematoma complicating a procedure s/p left femoral endarterectomy/aortoiliac stenting 10/2013 Peripheral vascular disease, unspecified COPD (chronic obstructive pulmonary disease) ([facility]) Chronic airway obstruction, not elsewhere [...] Coronary atherosclerosis of unspecified type of vessel, [place] or graft PVD (peripheral vascular disease) (HCC) Peripheral vascular disease, unspecified Melena Blood in stool Depression Depressive disorder, not elsewhere classified Anticoagulation goal of INR 2 to 3- Primary Encounter for therapeutic drug monitoring PVD (peripheral vascular disease) ([facility]) Peripheral vascular disease, unspecified Hospital discharge follow-up Other follow-up examination Melena- Primary Blood in stool Essential hypertension Unspecified essential hypertension Tobacco use disorder Anxiety and depression Dysthymic disorder Essential hypertension- Primary Unspecified essential hypertension Smoker Tobacco use disorder Anxiety and depression Dysthymic disorder PVD (peripheral vascular disease) ([facility])- Primary Peripheral vascular disease, unspecified Tobacco use disorder Pain in left shoulder Pain in joint, shoulder region Lupus anticoagulant disorder (HCC) Primary hypercoagulable state Pulmonary emphysema, unspecified emphysema type (HCC) Need for vaccination Need for prophylactic vaccination and inoculation against unspecified single disease Pre-operative examination- Primary Preoperative examination, unspecified PVD (peripheral vascular disease) ([facility]) Peripheral vascular disease, unspecified Coronary artery disease, angina presence unspecified, unspecified vessel or lesion type, unspecified whether [place] or transplanted heart Mixed hyperlipidemia Essential hypertension [...] hematuria, site unspecified documented in this [facility]* Diagnosis Onset Date Resolution Status Admit Date Acute diarrhea acute August 25, 2024 6:12pm Debility acute August 25 6:12pm Weakness acute August 25 6:12pm 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 August 252024 6:12pm [facility] Work Phone: Evaluation note* Diagnosis COPD (chronic [...] Coronary atherosclerosis of unspecified type of vessel, [place] or graft PVD (peripheral vascular disease) Peripheral [...] unspecified vessel or lesion type, unspecified whether [place] or transplanted heart Mixed hyperlipidemia Essential hypertension [...] and fatigue documented [facility] Diagnosis COPD (chronic obstructive [...] elsewhere classified COPD (chronic obstructive pulmonary disease) ([facility])- Primary Chronic airway obstruction, not [...] Coronary atherosclerosis of unspecified type of vessel, [place] or graft PVD (peripheral vascular disease) Peripheral [...] unspecified vessel or lesion type, unspecified whether [place] or transplanted heart Mixed hyperlipidemia Essential hypertension [...] Educational circumstance Wheezing documented in this encounter Evaluation note* Diagnosis COPD (chronic obstructive pulmonary [...] abnormal glucose COPD (chronic obstructive pulmonary disease) ([facility]) Chronic airway obstruction, not elsewhere [...] Peripheral vascular disease, unspecified Lupus anticoagulant disorder ([facility]) Primary hypercoagulable state Tobacco use [...] elsewhere classified COPD (chronic obstructive pulmonary disease) ([facility])- Primary Chronic airway obstruction, not [...] Coronary atherosclerosis of unspecified type of vessel, [place] or graft PVD (peripheral vascular disease) Peripheral [...] unspecified vessel or lesion type, unspecified whether [place] or transplanted heart Mixed hyperlipidemia Essential hypertension [...] on supplemental oxygen documented in this encounter Evaluation note* Diagnosis COPD (chronic obstructive pulmonary [...] Coronary atherosclerosis of unspecified type of vessel, [place] or graft PVD (peripheral vascular disease) Peripheral [...] unspecified vessel or lesion type, unspecified whether [place] or transplanted heart Mixed hyperlipidemia Essential hypertension [...] Shortness of breath documented in this [facility]* Diagnosis COPD (chronic obstructive pulmonary disease) ([facility])- Primary Chronic airway obstruction, not [...] Coronary atherosclerosis of unspecified type of vessel, [place] or graft PVD (peripheral vascular disease) Peripheral [...] unspecified vessel or lesion type, unspecified whether [place] or transplanted heart Mixed hyperlipidemia Essential hypertension [...] and unspecified hyperlipidemia documented in this encounter History and physical note Author Fran Cartwright [facility] March 30, 2023 8:08pm Note Date/Time March 30, 2023 7 :32pm [facility] Medical Records Department [address] [place] [address] H&P Exam - Hospitalist 03/30/231931 MR#: [id number] Acct: [id number] Name: PEDRO PABLO SIERRA Rep #:[id number] : 1950 72 From: Fran Cartwright MD PCP: Dr. Daija Morton MD Status:ADM I N Location: [facility] GR054-0 HPI - General General Date of Admission: [...] patient has a burning sensation with urination. PENDING SALE TO [facility] Medical History (Updated 03/30/23 @ 20:04 by [...] 79.2 H, Lymph % (Auto) 9.3 L, [place] % (Auto) 10.5 H, Eos % (Auto) [...] Sl. Cloudy, Urine pH 6.0, Ur Specific [place] 1.020, Urine Protein 100 H, Urine Glucose [...] documentation, 70minutes. Charges/Coding Visit Charges Inpatient E&M: 69535 Init Hosp L3 03/30/232007 <Electronically signed by Fran Cartwright MD> Cosigner Signature (if applicable): CC: Dr. Daija Morton MD; Dr. Fran Cartwright MD~ Signed [facility] Work Phone: History and physical note Author Андрей Cooley [facility] July 24, 2023 9:10pm Note Date/Time July 24, 2023 9 :10pm [facility] Medical Records Department [address] [place] [address] History & Physical Exam 07/24/232103 MR#: [id number] Acct: [id number] Name: PEDRO PABLO SIERRA Rep #:[id number] : 1950 73 From: Андрей Cooley MD [...] past medical history of recent [facility] for deb[facility] and weakness. Patient does also have a history of long-term smoking. Patient denies any chest pain, shortness of breath fevers or chills at present time. He will be admitted for pain control and case management to arrange for usp care facility. PENDING SALE TO [facility] Medical History Asthma Atrial fibrillation Chronic pain [...] 74.0 H, Lymph % (Auto) 16.0 L, [place] % (Auto) 7.3, Eos % (Auto) 1.1, [...] 17:27 EST Reading Location ID and State: [address] [place] [address] Tel , Service support , Assessment & [...] on anticoagulation Charges/Coding Visit Charges Inpatient E&M: 60436 Init Hosp L2 07/24/232109 <Electronically signed by Андрей Cooley MD> Cosigner Signature (if applicable): CC: Dr. Daija Morton MD; Dr. Андрей Cooley MD~ Signed [facility] Work Phone: History and physical note Author Lisha Talamantes [facility] Note Date/Time August 25, 2024 7:00 pm [facility] Medical Records Department [address] [place] [address] H&P Exam - Hospitalist 08/25/24 1820 MR#: [id number] Acct: [id number] Name: PEDRO PABLO SIERRA Rep #:[id number] : 1950 74 From: Lisha Talamantes DO PCP: Dr. Daija Morton MD Status:ADM I NO Location: [facility]3 PF517-5 HPI - General General Date of Admission: 08/25/24 Date of Service: 08/25/24 Chief Complaint: Diarrhea/generalized weakness HPI Narrative PEDRO PABLO SIERRA, is a 74 M who presented to the emergency department [facility] on 08/25/2024 with a chief complaint of generalized weakness and diarrhea. Patient had recently been at [facility] and was discharged about 5 days [...] Chest x-ray is unremarkable for acute findings. PENDING SALE TO [facility] Medical History Compression fx, lumbar spine Hypertension [...] 78.4 H, Lymph % (Auto) 10.3 L, [place] % (Auto) 9.9, Eos % (Auto) 0.3, [...] the current livingenvironment -Was recently discharged from [facility] however patient wasadamant that he did [...] need clarified Charges/Coding Visit Charges Inpatient E&M: 34748 Init Hosp L2 08/25/24 1900 <Electronically signed by Lisha Talamantes DO> Cosigner Signature (if applicable): CC: Dr. Daija Morton MD; Dr. Lisha Talamantes DO~ Signed [facility] Work Phone: History and physical note Author Shilpa Contreras [facility] Note Date/Time December 13, 2024 8:50 pm [facility] Medical Records Department [address] [place] [address] H&P Exam - Hospitalist 12/13/241948 MR#: [id number] Acct: [id number] Name: PEDRO PABLO SIERRA Rep #:[id number] : 1950 74 From: Shilpa Contreras MD PCP: Dr. Daija Morton MD Status:ADM I N Location: [place] [address] HPI - General General Date of Admission: [...] PJ, Tobacco use who presents to the [facility] ED on 12/13/2024 with history of worsening [...] component requested ABG and will trial BiPAP. PENDING SALE TO [facility] Medical History Weakness Debility Failure to thrive [...] % (Auto) 67.3, Lymph % (Auto) 19.5, [place]ison% (Auto) 8.9, Eos % (Auto) 3.0, Baso [...] significant change since last exam. Reading Location: [id number] Assessment & Plan Assessment/Plan (1) COPD exacerbation: [...] PJ, Tobacco use who presents to the [facility] ED on 12/13/2024 with history of worsening [...] 0.9. #16. CODE status: Patient healthcare power contracts attorney and living will are not in [...] 16 minutes. Charges/Coding Visit Charges Inpatient E&M: 39311 Init Hosp L3 Procedures Hospitalists Procedures: 32137 Advncd Care Plan 30 Min 12/13/242049 <Electronically signed by Shilpa Contreras MD> Cosigner Signature (if applicable): CC: Dr. Shilpa Contreras MD; Dr. Daija Morton MD~ Signed [facility] Work Phone: History and physical note Author Frankie Galindo [facility] Note Date/Time January 05, 2025 2:02 pm [facility] Medical Records Department [address] [place] [address] H&P Exam - Hospitalist 01/05/25 1336 MR#: [id number] Acct: [id number] Name: PEDRO PABLO SIERRA Rep #:[id number] : 1950 74 From: Frankie Galindo MD PCP: Dr. Lorraine Mena MD Status:A DM IN Location: [facility] [id number] HPI - General General Date of Admission: 01/05/25 Date of Service: 01/05/25 Chief Complaint: Suspected PEG tomorrow found HPI Narrative PEDRO PABLO SIERRA, is a 74 M with recent diagnosis of acute left MCA CVA discharged to a usp facility. Patient had a PEG tube placed [...] to a monitored bed for further management PENDING SALE TO [facility] Medical History Acute CVA (cerebrovascular accident) Aphasia [...] 76.7 H, Lymph % (Auto) 14.2 L, [place] % (Auto) 7.0, Eos % (Auto) 1.2, [...] IMPRESSION: COPD. No acute findings. Reading Location: [id number] X-Ray 01/05/25 13:02 IMPRESSION: A PEG tube tip is projected in the region of the stomach. Contrast material is identified within the stomach. There is no extravasation of the contrast. 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 Was [...] 78 Minutes Charges/Coding Visit Charges Inpatient E&M: 62606 Init Hosp L3 01/05/25 1402 <Electronically signed by Frankie Galindo MD> Cosigner Signature (if applicable): CC: Dr. Frankie Galindo MD; Dr. Lorraine Mena MD~ Signed [facility] Work Phone: [facility] Work Phone: [facility] Work Phone: [facility] Work Phone: [phone] Work Phone: [facility] Work Phone: Hospital Discharge instructions Additional Instructions Ice to your rib cage. Support your sore ribs with a pillow. Your chest x-ray did not show any broken ribs sometimes however there are small cracks in the ribs we cannot see on the x-ray. Hull for more severe pain. Otherwise use Tylenol. If you are using the pain medication Hull then do not use Tylenol with it. Follow-up with your doctor as needed. Keep the wounds on your forearms clean. Clean daily with soap and water. Patient apply antibiotic ointment. Watch for any signs of infection if seen follow-up.[facility] Work Phone: Hospital Discharge instructions Additional Instructions Please use the walker and follow-up with your primary care doctor.[facility] Work Phone: Progress note No data available for this section [facility] Reason for referral (narrative)* Outpatient Procedure (Routine) - Closed Specialty Diagnoses / Procedures Referred By Morris t [facility] Diagnoses COPD with chronic bronchitis (HCC) Procedures OXIMETRY WITH AMBULATION NONINVASIVE EAR/PULSE OXIMETRY MULTIPLE DETER Emilie Jauregui PA-C [address] [address] Referral ID Status Reason Start Date Expiration Date V isits Requested Visits Authorized [id number] Closed Auto-Generate d Referral 11/05/2021 06/18/2022 1 1 * Outpatient Procedure (Routine) - Closed Specialty Diagnoses / Procedures Referred By Contchelo t [facility] Diagnoses COPD with chronic bronchitis (HCC) Procedures LUNG DIFFUSION CAPACITY (DLCO) DIFFUSING CAPACITY Emilie Jauregui PA-C [address] [address] Referral ID Status Reason Start Date Expiration Date V isits Requested Visits Authorized [id number] Closed Auto-Generate d Referral 11/05/2021 06/18/2022 1 1 * Outpatient Procedure (Routine) - Closed Specialty Diagnoses / Procedures Referred By Morris t Referred To [facility] Diagnoses COPD with chronic bronchitis (HCC) Procedures SPIROMETRY BASELINE ONLY SPMTRY W/VC EXPIRATORY BRIAN W/WO MXML VOL VNTJ Emilie Jauregui PA-C [address] [address] Referral ID Status Reason Start Date Expiration Date V isits Requested Visits Authorized [id number] Closed Auto-Generate d Referral 11/05/2021 06/18/[address] [facility] for referral (narrative)* Outpatient Procedure (Routine) - Pending Review Specialty Diagnoses / Procedures Referred By Morris t Referred To Contact [facility] Diagnoses Essential hypertension Chest pain, unspecified type Procedures ECG COMPLETE ECG ROUTINE ECG W/LEAST 12 LDS W/I&R Anjel Braga APRN.CNP [address] [place] [address] [facility] [address] [place] [id number] Referral ID Status Reason Start Date Expiration Date Visits Requested Visits Authorized [id number] Pending Review Auto-Generat ed Referral 01/28/2022 01/28/[address] [facility] for referral (narrative)* Outpatient Procedure (Routine) - Authorized Specialty Diagnoses / Procedures Referred By Contac t Referred To Contact [facility] Diagnoses PVD (peripheral vascular disease) (HCC) Procedures PVR LEG COREY VAS LAB PVR LEG COREY VAS LAB NON-INVASIVE PHYSIOLOGIC STUDY EXTREMITY [address] [place] [address] [place] [address] [address] Referral ID Status Reason Start Date Expiration Date Visits Requested Visits Authorized [id number] Authorized Auto-Generat ed Referral 01/31/2022 01/31/[address] [facility] for referral (narrative)* Outpatient Procedure (Routine) - Authorized Specialty Diagnoses / Procedures Referred By Contac t Referred To Contact [facility] Diagnoses Peripheral arterial disease (HCC) PVD (peripheral vascular disease) (HCC) Procedures PVR LEG COREY VAS LAB NON-INVASIVE PHYSIOLOGIC STUDY EXTREMITY 3 [place] [address] [place] [address] [place] [address] [place] [address] Referral ID Status Reason Start Date Expiration Date Visits Requested Visits Authorized [id number] Authorized Auto-Generat ed Referral 12/26/2022 12/26/2023 1 1 [facility] Outpatient Procedure (Routine) - Authorized Specialty Diagnoses / Procedures Referred By Contac t Referred To Contact [facility] Diagnoses Peripheral arterial disease (HCC) Procedures PVR LEG COREY VAS LAB NON-INVASIVE PHYSIOLOGIC STUDY EXTREMITY 3 [place] [address] [place] [address] [facility] [address] [place] [address] Referral ID Status Reason Start Date Expiration Date Visits Requested Visits Authorized [id number] Authorized Auto-Generat ed Referral 01/02/2024 01/01/[address] [facility] for referral (narrative)No reason for referral information availableWCity Hospital Work Phone: Summary Purpose Family History [...] FoundDocuments on File Type Date Recorded Patient Political Organizer Expl anation Advance Directive(s) 10/24/2019 3:38 PM [...] Documents on File Type Date Recorded Patient Political Organizer Expl anation Advance Directive(s) 08/29/2021 6:53 PM Advance Directive(s) 08/22/2021 7:53 PM Advance Directive(s) 04/10/2020 4:06 PM Advance Directive(s) 12/17/2019 10:49 AM Advance Directive(s) 10/24/2019 3:38 PM Advance Directive(s) 10/17/2019 9:43 AM Advance Directive(s) 10/08/2019 7:18 AM Advance Directive(s) 09/04/2019 1:38 PM Advance Directive(s) 02/07/2016 12:11 AM Advance Directive Response Recorded Date/ Time Name of Medical Power of Flow Machine Operator eloina stephens e- ex August 12, 2021 1:39am Name of Medical Power of Flow Machine Operator Joseph Burrell August 18, 2021 11:56pm Advance Directives Yes March 22, 2016 4:03pm Living Will No September 17, 2021 5:48pm Power of Flow Machine Operator Yes September 17 5:48pm Advance Directive Response Recorded Date/ Time Name of Medical Power of Flow Machine Operator eloina stephens e- ex August 12, 2021 1:39am Name of Medical Power of Flow Machine Operator Joseph Burrell August 18, 2021 11:56pm Name of Medical Power of Flow Machine Operator joseph burrell September 17, 2021 5:48pm Advance Directives Yes March 22, 2016 4:03pm Living Will No October 08, 2021 2:20pm Power of Flow Machine Operator No October 08 2:20pm Documents on File Type Date Recorded Patient Political Organizer Expl anation Advance Directive(s) 08/29/2021 6:53 PM [...] Date/ Time Name of Medical Power of Flow Machine Operator eloina stephens e- ex August 12, 2021 1:39am Name of Medical Power of Flow Machine Operator Joseph Burrell August 18, 2021 11:56pm Name of Medical Power of Flow Machine Operator joseph burrell September 17, 2021 5:48pm Advance Directives Yes March 22, 2016 4:03pm Living Will Yes November 25, 2021 5 :33pm Power of Flow Machine Operator Yes November 25, 2021 5:33pm Advance Directive Response Recorded Date/ Time Name of Medical Power of Flow Machine Operator eloina stephens e- ex August 12, 2021 1:39am Name of Medical Power of Flow Machine Operator Joseph Burrell August 18, 2021 11:56pm Name of Medical Power of Flow Machine Operator joseph burrell September 17, 2021 5:48pm Advance Directives Yes March 22, 2016 4:03pm Living Will Yes November 25, 2021 1 1:06pm Power of Flow Machine Operator No November 25, 2021 11:06pm Advance Directive Response Recorded Date/ Time Name of Medical Power of Flow Machine Operator Joseph Burrell August 18, 2021 11:56pm Name of Medical Power of Flow Machine Operator joseph burrell September 17, 2021 5:48pm Name of Medical Power of Flow Machine Operator MICHELLE RICHMOND November 25, 2021 5:33pm Advance Directives Yes March 22, 2016 4:03pm Living Will Yes November 25, 2021 1 1:06pm Power of Flow Machine Operator No November 25, 2021 11:06pm Advance Directive Response Recorded Date/ Time Name of Medical Power of Flow Machine Operator joseph burrell September 17, 2021 5:48pm Name of Medical Power of Flow Machine Operator MICHELLEADRIANA REEDON November 25, 2021 5:33pm Advance Directives Yes March 22, 2016 4:03pm Living Will Yes November 25, 2021 1 1:06pm Power of Flow Machine Operator No November 25, 2021 11:06pm Advance Directive Response Recorded Date/ Time Name of Medical Power of Flow Machine Operator MICHELLE RICHMOND November 25, 2021 5:33pm Advance Directives Yes March 22, 2016 4:03pm Living Will Yes November 25, 2021 1 1:06pm Power of Flow Machine Operator No November 25, 2021 11:06pm Advance Directive Response Recorded Date/ Time Name of Medical Power of Flow Machine Operator MICHELLE RICHMOND November 25, 2021 5:33pm Name of Medical Power of Flow Machine Operator recalled January 28, 2022 3:14pm Advance Directives Yes March 22, 2016 4:03pm Living Will Yes January 28 3:14pm Power of Flow Machine Operator Yes January 28 022 3:14pm Documents on File Type Date Recorded Patient Political Organizer Expl anation Advance Directive(s) 10/24/2019 3:38 PM Advance Directive Response Recorded Date/ Time Name of Medical Power of Flow Machine Operator MICHELLE RICHMOND November 25, 2021 5:33pm Name of Medical Power of Flow Machine Operator recalled January 28, 2022 3:14pm Advance Directives Yes March 22, 2016 4:03pm Living Will Yes March 02, 2022 3:17pm Power of Flow Machine Operator No February 3:17pm Advance Directive Response Recorded Date/ Time Name of Medical Power of Flow Machine Operator MICHELLE RICHMOND November 25, 2021 5:33pm Name of Medical Power of Flow Machine Operator recalled January 28, 2022 3:14pm Advance Directives Yes March 22, 2016 4:03pm Living Will No March 07, 2022 5:26pm Power of Flow Machine Operator No February 5:26pm Advance Directive Response Recorded Date/ Time Name of Medical Power of Flow Machine Operator MICHELLE RICHMOND November 25, 2021 5:33pm Name of Medical Power of Flow Machine Operator recalled January 28, 2022 3:14pm Advance Directives Yes March 22, 2016 4:03pm Living Will No March 08, 2022 8:17pm Power of Flow Machine Operator No February 8:17pm Advance Directive Response Recorded Date/ Time Advance Directives Yes March 22, 2016 3:03pm Living Will No March 08, 2022 7:17pm Power of Flow Machine Operator No February 7:17pm Advance Directive Response Recorded Date/ Time Advance Directives Yes March 22, 2016 4:03pm Living Will No October 21, 2022 6: 58pm Power of Flow Machine Operator No October 21, 2022 6:58pm Latest Code [...] Date/ Time Name of Medical Power of Flow Machine Operator JOSEPH Euceda December 31, 2022 3:19pm Advance Directives Yes March 22, 2016 4:03pm Living Will Yes December 31, 2022 3:19pm Power of Flow Machine Operator Yes December 31 3:19pm Advance Directive Response Recorded Date/ Time Name of Medical Power of Flow Machine Operator JOSEPH Euceda December 31, 2022 3:19pm Name of Medical Power of Flow Machine Operator Joseph February 17, 2023 11:06pm Advance Directives Yes March 22, 2016 4:03pm Living Will Yes February 17 11:06pm Power of Flow Machine Operator Yes February 17, 2023 11:06pm Advance Directive Response Recorded Date/ Time Name of Medical Power of Flow Machine Operator Joseph Burrell March 29, 2023 7:22pm Advance Directives Yes March 22, 2016 4:03pm Living Will No March 30 3:32pm Power of Flow Machine Operator No March 30, 2023 3:32pm Name of Medical Power of Flow Machine Operator JOSEPH Euceda December 31, 2022 3:19pm Name of Medical Power of Flow Machine Operator Joseph February 17, 2023 11:06pm Advance Directive Response Recorded Date/ Time Name of Medical Power of Flow Machine Operator Joseph Burrell March 29, 2023 7:22pm Advance Directives Yes March 22, 2016 4:03pm Living Will No March 30 9:04pm Power of Flow Machine Operator No March 30, 2023 9:04pm Name of Medical Power of Flow Machine Operator JOSEPH BURRELL- E X December 31, 2022 3:19pm Name of Medical Power of Flow Machine Operator Joseph February 17, 2023 11:06pm Advance Directive Response Recorded Date/ Time Name of Medical Power of Flow Machine Operator Joseph Burrell March 29, 2023 6:22pm Advance Directives Yes March 22, 2016 3:03pm Living Will No March 30 8:04pm Power of Flow Machine Operator No March 30, 2023 8:04pm Advance Directive Response Recorded Date/ Time Name of Medical Power of Flow Machine Operator Joseph Burrell March 29, 2023 6:22pm Name of Medical Power of Flow Machine Operator Joseph Burrell July 24, 2023 5:27pm Advance Directives Yes March 22, 2016 3:03pm Living Will Yes July 24 5:27pm Power of Flow Machine Operator Yes July 24, 2023 5:27pm Advance Directive Response Recorded Date/ Time Name of Medical Power of Flow Machine Operator Joseph Burrell July 24, 2023 9:55pm Advance Directives Yes March 22, 2016 3:03pm Living Will No July 30, 024 8:34pm Power of Flow Machine Operator No July 30, 2023 8:34pm Advance Directive Response Recorded Date/ Time Name of Medical Power of Flow Machine Operator Joseph Burrell July 24, 2023 9:55pm Name of Medical Power of Flow Machine Operator Nahed Roxy July 31, 2023 12:57am Advance Directives Yes March 22, 2016 3:03pm Living Will No July 31, 024 12:57am Power of Flow Machine Operator Yes July 31, 2023 12:57am Date Activated Date Inactivated Comments 08/23/2021 7:55 AM 09/13/2021 7:43 PM Question Answer Comments Full Code Order Discussed With: Patient Date Activated Date Inactivated Comments 10/01/2020 11:51 PM 08/21/2021 11:26 AM Advance Directive Response Recorded Date/ Time Name of Medical Power of Flow Machine Operator Joseph Burrell March 29, 2023 6:22pm Advance Directives Yes March 22, 2016 3:03pm Living Will No March 30 8:04pm Power of Flow Machine Operator No March 30, 2023 8:04pm Name of Medical Power of Flow Machine Operator Joseph February 17, 2023 10:06pm Advance Directive Response Recorded Date/ Time Living Will No August 25, 2024 4:43pm Power of Flow Machine Operator No August 25 4:43pm Advance Directives Yes March 22, 2016 4:03pm Advance Directive Response Recorded Date/ Time Living Will No August 25, 2024 7:21pm Power of Flow Machine Operator No August 25 7:21pm Advance Directives Yes March 22, 2016 4:03pm Advance Directive Response Recorded Date/ Time Living Will No August 25, 2024 7:21pm Do you have a Healthcare Power of Flow Machine Operator? No August 25, 2024 7:21pm Advance Directives Yes March 22, 2016 4:03pm Advance Directive Response Recorded Date/ Time Do you have a Healthcare Power of Flow Machine Operator? No December 13, 2024 5:49pm Living Will No August 25, 2024 7:21pm Do you have a Healthcare Power of Flow Machine Operator? No August 25, 2024 7:21pm Advance Directives Yes March 22, 2016 4:03pm Advance Directive Response Recorded Date/ Time Do you have a Healthcare Power of Flow Machine Operator? Yes December 13, 2024 9:26pm Name of Medical Power of Flow Machine Operator Joseph Burrell December 13, 2024 9:26pm Living Will No August 25, 2024 7:21pm Do you have a Healthcare Power of Flow Machine Operator? No August 25, 2024 7:21pm Advance Directives Yes March 22, 2016 4:03pm Advance Directive Response Recorded Date/ Time Do you have a Healthcare Power of Flow Machine Operator? Yes December 13, 2024 9:26pm Name of Medical Power of Flow Machine Operator Joseph Burrell December 13, 2024 9:26pm Do you have a Healthcare Power of Flow Machine Operator? Yes December 17, 2024 4:23pm Living Will No August 25, 2024 7:21pm Do you have a Healthcare Power of Flow Machine Operator? No August 25, 2024 7:21pm Advance Directives Yes March 22, 2016 4:03pm Advance Directive Response Recorded Date/ Time Do you have a Healthcare Power of Flow Machine Operator? Yes December 13, 2024 9:26pm Name of Medical Power of Flow Machine Operator Joseph Burrell December 13, 2024 9:26pm Do you have a Healthcare Power of Flow Machine Operator? Yes December 17, 2024 4:23pm Do you have a Healthcare Power of Flow Machine Operator? Yes January 03, 2025 6:26am Advance Directives Yes March 22, 2016 4:03pm Advance Directive Response Recorded Date/ Time Do you have a Healthcare Power of Flow Machine Operator? Yes December 13, 2024 9:26pm Name of Medical Power of Flow Machine Operator Joseph Burrell December 13, 2024 9:26pm Do you have a Healthcare Power of Flow Machine Operator? Yes December 17, 2024 4:23pm Do you have a Healthcare Power of Flow Machine Operator? Yes January 03, 2025 6:26am Do you have a Healthcare Power of Flow Machine Operator? No January 05, 2025 9:44am Advance Directives Yes March 22, 2016 4:03pm Advance Directive Response Recorded Date/ Time Do you have a Healthcare Power of Flow Machine Operator? Yes December 13, 2024 9:26pm Name of Medical Power of Flow Machine Operator Joseph Burrell December 13, 2024 9:26pm Do you have a Healthcare Power of Flow Machine Operator? Yes December 17, 2024 4:23pm Do you have a Healthcare Power of Flow Machine Operator? Yes January 03, 2025 6:26am Do you have a Healthcare Power of Flow Machine Operator? No January 05, 2025 2:48pm Advance Directives Yes March 22, 2016 4:03pm Hospital Course Note HNO ID: [id number] Author: Luis Girard Service: Vascular Surgery Author [...] Admitted for a planned redo of left HIDE HOUSE SUPERVISOR endarterectomy versus bypass, possible fem-fem and or fem-pop bypass, possible stent placement for reoccurrent left HIDE HOUSE SUPERVISOR disease, thrombosis of the left iliac stents and rest pain. Operations during Hospitalization: 10/08/2019-Left common femoral endarterectomy with bovine patch, redo.Thrombectomy of the occluded Left RADHA and EIA.Left common and external iliac stents (Cast x 2), (Gene (more content not included)... Note HNO ID: [id number] Author: Gabino Oden (Pa) Service: Vascular Surgery Author Type: Physician Tin Plater Type: Discharge Summary Filed: 10/25/2019 4:58 PM [...] status post revascularization of left leg. Presumed [place]-Beau left iliac, profunda bypass infection. Reason for Hospitalization: pleasant 69-year-old gentleman, who has recently undergone com (more content not included)... Note HNO ID: [id number] Author: Luis lizama (Richi Girard Service: Vascular Surgery Author Type: Nurse Practitioner Type: Discharge Summary Filed: 12/17/2019 5:52 PM Note Text: Attestation signed by Rob Stevens at 12/18/2019 8:07 AM [facility] STAFF PHYSICIAN NOTE OF PERSONAL INVOLVEMENT IN [...] (more content not included)... Note HNO ID: [id number] Author: Nelson Schuster (Aa) Service: ? Author Type: Validation Software Facilitator Type: Anesthesia Procedure Notes Filed: 10/08/2019 8:38 [...] (more content not included)... Note HNO ID: [id number] Author: Nelson Schuster (Aa) Service: ? Author Type: Validation Software Facilitator Type: Anesthesia Procedure Notes Filed: 10/08/2019 8:38 AM Note Text: ANESTHESIOLOGY PROCEDURE NOTE PIV General Information Procedure Start Time/Medication Administration: 10/08/2019 8:10 AM Patient Location: OR Staffing CAA: ANA PAULA Andrade (Aa) Performed by: DEGAR Preparation Sterility Preparation: hand hygiene performed prior to procedure, surgical cap used Site Prep: chlorhexidine Procedure Details Indication: need for IV access Needle Size/Type: 16 gauge angiocath Orientation: Left Location: Hand Imaging Guidance Used: No Appropriate fluid pocket was identified and marked: Yes SIGNATURE: ANA PAULA Nieto PATIENT NAME: Pedro Pablo Sierra DATE: October 08, 2019 TIME: 8:36 AM CSN: [id number] Note HNO ID: [id number] Author: Nelson Schuster (Aa) Service: ? Author Type: Validation Software Facilitator Type: Anesthesia Procedure Notes Filed: 10/08/2019 8:39 [...] (more content not included)... Note HNO ID: [id number] Author: ANA PAULA Sanchez (Aa) Service: ? Author Type: Validation Software Facilitator Type: Anesthesia Procedure Notes Filed: 10/08/2019 9:16 [...] October 08, 2019 TIME: 9:15 AM CSN: [id number] Note HNO ID: [id number] Author: Gabino lucas (Res) Stephanie Service: Vascular Surgery Author Type: Resident Type: Brief Op Note Filed: 10/08/2019 4:12 PM Note Text: BRIEF OPERATIVE / PROCEDURE NOTE LOG ID: [id number] SURGERY/PROCEDURE DATE: 10/08/2019 INCISION/PROCEDURE START TIME: 8:53 AM INCISION CLOSE/PROCEDURE END TIME: 4:06 PM SURGEON(S)/PROCEDURALIST(S) AND PHARMACY ASSISTANT(S): Surgeon(s) and Role: * Ryan May MD - Primary * Elly (Binu Brown - Resident - Assisting No Additional Staff SURGERY/PROCEDURE(S): Left common HIDE HOUSE SUPERVISOR endarterectomy with bovine path Left profundoplasty Left [...] (more content not included)... Note HNO ID: [id number] Author: Destiny Sequeira Service: ? Author Type: [...] (more content not included)... Note HNO ID: [id number] Author: Destiny Sequeira Service: ? Author Type: [...] October 10, 2019 TIME: 9:26 AM CSN: [id number] Note HNO ID: [id number] Author: Huong Gonzalez Service: ? Author Type: Nurse Bareback Rider Type: Anesthesia Procedure Notes Filed: 10/10/2019 9:36 AM Note Text: ANESTHESIOLOGY PROCEDURE NOTE Airway General Information Procedure Start Time/Medication Administration: 10/10/2019 9:11 AM Patient location during procedure: OR Staffing Anesthesiologist: Joey Sequeira CAREER SERVICES MANAGER: Gini Gonzalez Performed by: EDWIN Indications and [...] (more content not included)... Note HNO ID: [id number] Author: Gabino lucas ([facility]) Stephanie Service: Vascular Surgery Author Type: Resident Type: Brief Op Note Filed: 10/10/2019 2:08 PM Note Text: BRIEF OPERATIVE / PROCEDURE NOTE LOG ID: [id number] Surgery/Procedure Date: 10/10/2019 Incision/Procedure Start Time: 9:52 AM Incision Close/Procedure End Time: 1:49 PM Surgeon(s)/Proceduralist(s) and Tin Plater(s): Surgeon(s) and Role: * Ryan May MD - Primary * Elly ([facility]) Stephanie - Resident - Assisting No Additional Staff Procedure(s): Washout of left groin Left iliac, common femoral and profunda thrombectomy Left ilio-femoral ringed PTFE interposition graft (end-to-side) L iliofemoral stent extraction Multiple angiograms Anesthesia: General ASA Class: Findings: L iliac in-stent thrombosis, L HIDE HOUSE SUPERVISOR thrombosis, L profunda thrombosis Fresh hematoma, evacuated Likely external compression of L inguinal ligament onto L ileofemoral stent causing thrombosis Good 3 vessel runoff on completion angio Skin closed with vertic (more content not included)... Note HNO ID: [id number] Author: Nelson Locke Service: ? Author Type: Nurse Bareback Rider Type: Anesthesia Procedure Notes Filed: 10/18/2019 1:06 [...] October 18, 2019 TIME: 1:05 PM CSN: [id number] Note HNO ID: [id number] Author: Nelson Locke Service: ? Author Type: Nurse Bareback Rider Type: Anesthesia Procedure Notes Filed: 10/18/2019 1:16 PM Note Text: ANESTHESIOLOGY PROCEDURE NOTE Airway General Information Procedure Start Time/Medication Administration: 10/18/2019 12:59 PM Patient location during procedure: ORTimeout Performed Pre-procedure: timeout performed Patient identity confirmed: arm band and care grocery team member Staffing Anesthesiologist: Del Garner CAREER SERVICES MANAGER: Chrystal Locke Performed by: CAREER SERVICES MANAGER Indications and Patient Condition Preoxygenated: yes Patient [...] (more content not included)... Note HNO ID: [id number] Author: Veronika Tompkins MD Service: Vascular Surgery Author Type: Resident Type: Brief Op Note Filed: 10/18/2019 3:40 PM Note Text: BRIEF OPERATIVE / PROCEDURE NOTE LOG ID: [id number] Surgery/Procedure Date: 10/18/2019 Incision/Procedure Start Time: 1:31 PM Incision Close/Procedure End Time: 3:10 PM Surgeon(s)/Proceduralist(s) and Tin Plater(s): Surgeon(s) and Role: * Lesly Salvador - [...] (more content not included)... Note HNO ID: [id number] Author: Luis Girard Service: Vascular Surgery Author Type: Nurse Practitioner Type: Procedures Filed: 10/21/2019 12:34 PM Note Text: BEDSIDE PROCEDURE NOTE PROCEDURE DATE: October 21, 2019 PROCEDURE START TIME: 1100 PRIMARY PROCEDURALIST: Roman Girard (KISHORE) PHARMACY ASSISTANT(S): Juliana LOPEZ) Dr. Lopez at bedside [...] (more content not included)... Note HNO ID: [id number] Author: Luis Girard Service: Vascular Surgery Author Type: Nurse Practitioner Type: Procedures Filed: 10/23/2019 3:38 PM Note Text: BEDSIDE PROCEDURE NOTE PROCEDURE DATE: October 23, 2019 PROCEDURE START TIME: 1400 PRIMARY PROCEDURALIST: Roman Girard (KISHORE) PHARMACY ASSISTANT(S): Juliana LOPEZ) PROCEDURE: NEGATIVE PRESSURE WOUND [...] not included)... Procedure Findings Note HNO ID: [id number] Author: Nelson Schuster (Aa) Service: ? Author Type: Validation Software Facilitator Type: Anesthesia Procedure Notes Filed: 10/08/2019 8:38 [...] (more content not included)... Note HNO ID: [id number] Author: Nelson Schuster (Aa) Service: ? Author Type: Validation Software Facilitator Type: Anesthesia Procedure Notes Filed: 10/08/2019 8:38 [...] October 08, 2019 TIME: 8:36 AM CSN: [id number] Note HNO ID: [id number] Author: Nelson Schuster (Aa) Service: ? Author Type: Validation Software Facilitator Type: Anesthesia Procedure Notes Filed: 10/08/2019 8:39 [...] (more content not included)... Note HNO ID: [id number] Author: Luis Naidu) ANA PAULA Alejandro Service: ? Author Type: Validation Software Facilitator Type: Anesthesia Procedure Notes Filed: 10/08/2019 9:16 [...] Placement: yes Post-Procedure Details SIGNATURE: ANA PAULA nAdrade PATIENT NAME: Pedro Pablo Sierra DATE: October 08, 2019 TIME: 9:15 AM CSN: [id number] Note HNO ID: [id number] Author: Gabino lucas (Azalea) Stephanie Service: Vascular Surgery Author Type: Resident Type: Brief Op Note Filed: 10/08/2019 4:12 PM Note Text: BRIEF OPERATIVE / PROCEDURE NOTE LOG ID: [id number] SURGERY/PROCEDURE DATE: 10/08/2019 INCISION/PROCEDURE START TIME: 8:53 AM INCISION CLOSE/PROCEDURE END TIME: 4:06 PM SURGEON(S)/PROCEDURALIST(S) AND PHARMACY ASSISTANT(S): Surgeon(s) and Role: * Ryan May MD - Primary * Elly (Azalea) Stephanie - Resident - Assisting No Additional Staff SURGERY/PROCEDURE(S): Left common HIDE HOUSE SUPERVISOR endarterectomy with bovine path Left profundoplasty Left [...] (more content not included)... Note HNO ID: [id number] Author: Destiny Sequeira Service: ? Author Type: [...] (more content not included)... Note HNO ID: [id number] Author: Destiny Sequeira Service: ? Author Type: [...] October 10, 2019 TIME: 9:26 AM CSN: [id number] Note HNO ID: [id number] Author: Huong NessGroup Manager) Carlos Service: ? Author Type: Nurse Bareback Rider Type: Anesthesia Procedure Notes Filed: 10/10/2019 9:36 AM Note Text: ANESTHESIOLOGY PROCEDURE NOTE Airway General Information Procedure Start Time/Medication Administration: 10/10/2019 9:11 AM Patient location during procedure: OR Staffing Anesthesiologist: Joey Sequeira CAREER SERVICES MANAGER: Gini Gonzalez Performed by: CAREER SERVICES MANAGER Indications and Patient Condition Preoxygenated: yes Patient [...] (more content not included)... Note HNO ID: [id number] Author: Gabino lucas (Res) Stephanie Service: Vascular Surgery Author Type: Resident Type: Brief Op Note Filed: 10/10/2019 2:08 PM Note Text: BRIEF OPERATIVE / PROCEDURE NOTE LOG ID: [id number] Surgery/Procedure Date: 10/10/2019 Incision/Procedure Start Time: 9:52 AM Incision Close/Procedure End Time: 1:49 PM Surgeon(s)/Proceduralist(s) and Tin Plater(s): Surgeon(s) and Role: * Ryan May MD - Primary * Elly (Res) Stephanie - Resident - Assisting No Additional Staff Procedure(s): Washout of left groin Left iliac, common femoral and profunda thrombectomy Left ilio-femoral ringed PTFE interposition graft (end-to-side) L iliofemoral stent extraction Multiple angiograms Anesthesia: General ASA Class: Findings: L iliac in-stent thrombosis, L HIDE HOUSE SUPERVISOR thrombosis, L profunda thrombosis Fresh hematoma, evacuated Likely external compression of L inguinal ligament onto L ileofemoral stent causing thrombosis Good 3 vessel runoff on completion angio Skin closed with vertic (more content not included)... Note HNO ID: [id number] Author: Nelson Locke Service: ? Author Type: Nurse Bareback Rider Type: Anesthesia Procedure Notes Filed: 10/18/2019 1:06 [...] October 18, 2019 TIME: 1:05 PM CSN: [id number] Note HNO ID: [id number] Author: Nelson Locke Service: ? Author Type: Nurse Bareback Rider Type: Anesthesia Procedure Notes Filed: 10/18/2019 1:16 PM Note Text: ANESTHESIOLOGY PROCEDURE NOTE Airway General Information Procedure Start Time/Medication Administration: 10/18/2019 12:59 PM Patient location during procedure: ORTimeout Performed Pre-procedure: timeout performed Patient identity confirmed: arm band and care grocery team member Staffing Anesthesiologist: Del Garner CAREER SERVICES MANAGER: Chrystal Locke Performed by: EDWIN Indications and [...] (more content not included)... Note HNO ID: [id number] Author: Veronika pressley (Binu Tompkins MD Service: Vascular Surgery Author Type: Resident Type: Brief Op Note Filed: 10/18/2019 3:40 PM Note Text: BRIEF OPERATIVE / PROCEDURE NOTE LOG ID: [id number] Surgery/Procedure Date: 10/18/2019 Incision/Procedure Start Time: 1:31 PM Incision Close/Procedure End Time: 3:10 PM Surgeon(s)/Proceduralist(s) and Tin Plater(s): Surgeon(s) and Role: * Lesly Salvador - [...] placed over sartorius flap and extends superiorly MAIME drain in inferior tract Pulses: LLE: palpable DP, biphasic PT Medications: Antiplatelet: Yes - Medication: plav (more content not included)... Note HNO ID: [id number] Author: Luis Richey) Era Service: Vascular Surgery Author Type: Nurse Practitioner Type: Procedures Filed: 10/21/2019 12:34 PM Note Text: BEDSIDE PROCEDURE NOTE PROCEDURE DATE: October 21, 2019 PROCEDURE START TIME: 1100 PRIMARY PROCEDURALIST: Roman Girard (CHARLES.LAMIN) PHARMACY ASSISTANT(S): Juliana Oden (HOWIE) Dr. Lopez at bedside [...] (more content not included)... Note HNO ID: [id number] Author: Luis Richey) Era Service: Vascular Surgery Author Type: Nurse Practitioner Type: Procedures Filed: 10/23/2019 3:38 PM Note Text: BEDSIDE PROCEDURE NOTE PROCEDURE DATE: October 23, 2019 PROCEDURE START TIME: 1400 PRIMARY PROCEDURALIST: Roman Girard (TRANSLITERATOR.PATIENT CARE ASSOCIATE) PHARMACY ASSISTANT(S): Juliana JESUS-Edilma) PROCEDURE: NEGATIVE PRESSURE WOUND [...] January 23, 2025 10:27am Current use of senior care anticoagulation January 23, 2025 10:27am CVA (cerebral [...] throat Smoking Procedures CONSULT TO ENT OFFICE/OUTPATIENT [facility] MDM 60 MINUTES Rebekah Luu PA-C [address] [place] [address] Referral ID Status Reason Start Date Expiration Date Visits Requested Visits Authorized [id number] Authorized PCP Requested Referral 11/21/2023 11/20/2024 1 1 Specialty Diagnoses / Procedures Referred By Morris dixon Referred To Contact Diagnoses COPD with chronic bronchitis (HCC) Rebekah Luu PA-C [address] [place] [address] Referral ID Status Reason Start Date Expiration Date Visits Re quested Visits Authorized [id number] Closed 1 1 Specialty Diagnoses / Procedures Referred By Contac t Referred To Contact Marquita Braga APRN.PATIENT CARE ASSOCIATE [address] [place] [address] Referral ID Status Reason Start Date Expiration Date V isits Requested Visits Authorized [id number] Authorized 08/29/2022 06/18/2023 1 1 Specialty Diagnoses / Procedures Referred By Contac t Referred To Contact Harriett Albert APRN.COMMUNICATIONS DEPARTMENT CHAIR [address] [place] [address] Referral ID Status Reason Start Date Expiration Date Visits Re quested Visits Authorized [id number] Closed 1 1 Specialty Diagnoses / Procedures Referred By Contac t Referred To Contact Gastroenterology Diagnoses Acute blood loss anemia Angiodysplasia of colon with hemorrhage Procedures CONSULT TO GASTROENTEROLOGY OFFICE/OUTPATIENT [facility] 60-74 MINUTES Harriett Albert, CHARLES.COMMUNICATIONS DEPARTMENT CHAIR [address] [place] [address] Referral ID Status Reason Start Date Expiration Date Visits Requested Visits Authorized [id number] Pending Review PCP Requested Referral 01/14/2022 01/14/2023 1 1 Specialty Diagnoses / Procedures Referred By Contac t Referred To Contact Anjel Braga APRN.PATIENT CARE ASSOCIATE [address] [place] [address] Referral ID Status Reason Start Date Expiration Date Visits Re quested Visits Authorized [id number] Closed 1 1 Medications Administered Section Administered [...] section and content) DATE CREATED AUTHOR 01/09/2020 [facility] DATE CREATED AUTHOR AUTHOR'S ORGANIZ ATION 04/03/2020 [facility] DATE CREATED AUTHOR AUTHOR'S ORGANIZ ATION 04/11/2020 [facility] DATE CREATED AUTHOR AUTHOR'S ORGANIZ ATION 01/26/2022 [facility] DATE CREATED AUTHOR AUTHOR'S ORGANIZ ATION 07/16/2023 [facility] DATE CREATED AUTHOR AUTHOR'S ORGANIZ ATION 03/23/2025 [facility] DATE CREATED AUTHOR AUTHOR'S ORGANIZ ATION 04/13/2025 [facility] DATE CREATED AUTHOR AUTHOR'S ORGANIZ ATION 04/29/2025 [facility] Source Comments (unrecognize d section and content) In the event this informatio n is protected by the Federal Confidentiality of Alcohol and Drug Abuse Patient Records regulations: The Federal rules restrict any use of the information to criminally investigate or prosecute any alcohol or drug abuse patient.In the event this information is protected by the Federal Confidentiality of Alcohol and Drug Abuse Patient Records regulations: The Federal rules restrict any use of the information to criminally investigate or prosecute any alcohol or drug abuse patient.In the event this information is protected by the Federal Confidentiality of Alcohol and Drug Abuse Patient Records regulations: The Federal rules restrict any use of the information to criminally investigate or prosecute any alcohol or drug abuse patient.In the event this information is protected by the Federal Confidentiality of Alcohol and Drug Abuse Patient Records regulations: The Federal rules restrict any use of the information to criminally investigate or prosecute any alcohol or drug abuse patient.In the event this information is protected by the Federal Confidentiality of Alcohol and Drug Abuse Patient Records regulations: The Federal rules restrict any use of the information to criminally investigate or prosecute any alcohol or drug abuse patient.In the event this information is protected by the Federal Confidentiality of Alcohol and Drug Abuse Patient Records regulations: The Federal rules restrict any use of the information to criminally investigate or prosecute any alcohol or drug abuse patient.In the event this information is protected by the Federal Confidentiality of Alcohol and Drug Abuse Patient Records regulations: The Federal rules restrict any use of the information to criminally investigate or prosecute any alcohol or drug abuse patient.In the event this information is protected by the Federal Confidentiality of Alcohol and Drug Abuse Patient Records regulations: The Federal rules restrict any use of the information to criminally investigate or prosecute any alcohol or drug abuse patient.In the event this information is protected by the Federal Confidentiality of Alcohol and Drug Abuse Patient Records regulations: The Federal rules restrict any use of the information to criminally investigate or prosecute any alcohol or drug abuse patient.In the event this information is protected by the Federal Confidentiality of Alcohol and Drug Abuse Patient Records regulations: The Federal rules restrict any use of the information to criminally investigate or prosecute any alcohol or drug abuse patient.In the event this information is protected by the Federal Confidentiality of Alcohol and Drug Abuse Patient Records regulations: The Federal rules restrict any use of the information to criminally investigate or prosecute any alcohol or drug abuse patient.In the event this information is protected by the Federal Confidentiality of Alcohol and Drug Abuse Patient Records regulations: The Federal rules restrict any use of the information to criminally investigate or prosecute any alcohol or drug abuse patient.In the event this information is protected by the Federal Confidentiality of Alcohol and Drug Abuse Patient Records regulations: The Federal rules restrict any use of the information to criminally investigate or prosecute any alcohol or drug abuse patient.In the event this information is protected by the Federal Confidentiality of Alcohol and Drug Abuse Patient Records regulations: The Federal rules restrict any use of the information to criminally investigate or prosecute any alcohol or drug abuse patient.In the event this information is protected by the Federal Confidentiality of Alcohol and Drug Abuse Patient Records regulations: The Federal rules restrict any use of the information to criminally investigate or prosecute any alcohol or drug abuse patient.In the event this information is protected by the Federal Confidentiality of Alcohol and Drug Abuse Patient Records regulations: The Federal rules restrict any use of the information to criminally investigate or prosecute any alcohol or drug abuse patient.In the event this information is protected by the Federal Confidentiality of Alcohol and Drug Abuse Patient Records regulations: The Federal rules restrict any use of the information to criminally investigate or prosecute any alcohol or drug abuse patient.In the event this information is protected by the Federal Confidentiality of Alcohol and Drug Abuse Patient Records regulations: The Federal rules restrict any use of the information to criminally investigate or prosecute any alcohol or drug abuse patient.In the event this information is protected by the Federal Confidentiality of Alcohol and Drug Abuse Patient Records regulations: The Federal rules restrict any use of the information to criminally investigate or prosecute any alcohol or drug abuse patient.In the event this information is protected by the Federal Confidentiality of Alcohol and Drug Abuse Patient Records regulations: The Federal rules restrict any use of the information to criminally investigate or prosecute any alcohol or drug abuse patient.In the event this information is protected by the Federal Confidentiality of Alcohol and Drug Abuse Patient Records regulations: The Federal rules restrict any use of the information to criminally investigate or prosecute any alcohol or drug abuse patient.In the event this information is protected by the Federal Confidentiality of Alcohol and Drug Abuse Patient Records regulations: The Federal rules restrict any use of the information to criminally investigate or prosecute any alcohol or drug abuse patient.In the event this information is protected by the Federal Confidentiality of Alcohol and Drug Abuse Patient Records regulations: The Federal rules restrict any use of the information to criminally investigate or prosecute any alcohol or drug abuse patient.In the event this information is protected by the Federal Confidentiality of Alcohol and Drug Abuse Patient Records regulations: The Federal rules restrict any use of the information to criminally investigate or prosecute any alcohol or drug abuse patient.In the event this information is protected by the Federal Confidentiality of Alcohol and Drug Abuse Patient Records regulations: The Federal rules restrict any use of the information to criminally investigate or prosecute any alcohol or drug abuse patient.In the event this information is protected by the Federal Confidentiality of Alcohol and Drug Abuse Patient Records regulations: The Federal rules restrict any use of the information to criminally investigate or prosecute any alcohol or drug abuse patient.In the event this information is protected by the Federal Confidentiality of Alcohol and Drug Abuse Patient Records regulations: The Federal rules restrict any use of the information to criminally investigate or prosecute any alcohol or drug abuse patient.In the event this information is protected by the Federal Confidentiality of Alcohol and Drug Abuse Patient Records regulations: The Federal rules restrict any use of the information to criminally investigate or prosecute any alcohol or drug abuse patient.In the event this information is protected by the Federal Confidentiality of Alcohol and Drug Abuse Patient Records regulations: The Federal rules restrict any use of the information to criminally investigate or prosecute any alcohol or drug abuse patient.In the event this information is protected by the Federal Confidentiality of Alcohol and Drug Abuse Patient Records regulations: The Federal rules restrict any use of the information to criminally investigate or prosecute any alcohol or drug abuse patient.In the event this information is protected by the Federal Confidentiality of Alcohol and Drug Abuse Patient Records regulations: The Federal rules restrict any use of the information to criminally investigate or prosecute any alcohol or drug abuse patient.In the event this information is protected by the Federal Confidentiality of Alcohol and Drug Abuse Patient Records regulations: The Federal rules restrict any use of the information to criminally investigate or prosecute any alcohol or drug abuse patient.In the event this information is protected by the Federal Confidentiality of Alcohol and Drug Abuse Patient Records regulations: The Federal rules restrict any use of the information to criminally investigate or prosecute any alcohol or drug abuse patient.In the event this information is protected by the Federal Confidentiality of Alcohol and Drug Abuse Patient Records regulations: The Federal rules restrict any use of the information to criminally investigate or prosecute any alcohol or drug abuse patient.In the event this information is protected by the Federal Confidentiality of Alcohol and Drug Abuse Patient Records regulations: The Federal rules restrict any use of the information to criminally investigate or prosecute any alcohol or drug abuse patient.In the event this information is protected by the Federal Confidentiality of Alcohol and Drug Abuse Patient Records regulations: The Federal rules restrict any use of the information to criminally investigate or prosecute any alcohol or drug abuse patient.In the event this information is protected by the Federal Confidentiality of Alcohol and Drug Abuse Patient Records regulations: The Federal rules restrict any use of the information to criminally investigate or prosecute any alcohol or drug abuse patient.In the event this information is protected by the Federal Confidentiality of Alcohol and Drug Abuse Patient Records regulations: The Federal rules restrict any use of the information to criminally investigate or prosecute any alcohol or drug abuse patient.In the event this information is protected by the Federal Confidentiality of Alcohol and Drug Abuse Patient Records regulations: The Federal rules restrict any use of the information to criminally investigate or prosecute any alcohol or drug abuse patient.In the event this information is protected by the Federal Confidentiality of Alcohol and Drug Abuse Patient Records regulations: The Federal rules restrict any use of the information to criminally investigate or prosecute any alcohol or drug abuse patient.In the event this information is protected by the Federal Confidentiality of Alcohol and Drug Abuse Patient Records regulations: The Federal rules restrict any use of the information to criminally investigate or prosecute any alcohol or drug abuse patient.In the event this information is protected by the Federal Confidentiality of Alcohol and Drug Abuse Patient Records regulations: The Federal rules restrict any use of the information to criminally investigate or prosecute any alcohol or drug abuse patient.In the event this information is protected by the Federal Confidentiality of Alcohol and Drug Abuse Patient Records regulations: The Federal rules restrict any use of the information to criminally investigate or prosecute any alcohol or drug abuse patient.In the event this information is protected by the Federal Confidentiality of Alcohol and Drug Abuse Patient Records regulations: The Federal rules restrict any use of the information to criminally investigate or prosecute any alcohol or drug abuse patient.In the event this information is protected by the Federal Confidentiality of Alcohol and Drug Abuse Patient Records regulations: The Federal rules restrict any use of the information to criminally investigate or prosecute any alcohol or drug abuse patient.In the event this information is protected by the Federal Confidentiality of Alcohol and Drug Abuse Patient Records regulations: The Federal rules restrict any use of the information to criminally investigate or prosecute any alcohol or drug abuse patient.In the event this information is protected by the Federal Confidentiality of Alcohol and Drug Abuse Patient Records regulations: The Federal rules restrict any use of the information to criminally investigate or prosecute any alcohol or drug abuse patient.In the event this information is protected by the Federal Confidentiality of Alcohol and Drug Abuse Patient Records regulations: The Federal rules restrict any use of the information to criminally investigate or prosecute any alcohol or drug abuse patient.In the event this information is protected by the Federal Confidentiality of Alcohol and Drug Abuse Patient Records regulations: The Federal rules restrict any use of the information to criminally investigate or prosecute any alcohol or drug abuse patient.In the event this information is protected by the Federal Confidentiality of Alcohol and Drug Abuse Patient Records regulations: The Federal rules restrict any use of the information to criminally investigate or prosecute any alcohol or drug abuse patient.In the event this information is protected by the Federal Confidentiality of Alcohol and Drug Abuse Patient Records regulations: The Federal rules restrict any use of the information to criminally investigate or prosecute any alcohol or drug abuse patient.In the event this information is protected by the Federal Confidentiality of Alcohol and Drug Abuse Patient Records regulations: The Federal rules restrict any use of the information to criminally investigate or prosecute any alcohol or drug abuse patient.In the event this information is protected by the Federal Confidentiality of Alcohol and Drug Abuse Patient Records regulations: The Federal rules restrict any use of the information to criminally investigate or prosecute any alcohol or drug abuse patient.In the event this information is protected by the Federal Confidentiality of Alcohol and Drug Abuse Patient Records regulations: The Federal rules restrict any use of the information to criminally investigate or prosecute any alcohol or drug abuse patient.In the event this information is protected by the Federal Confidentiality of Alcohol and Drug Abuse Patient Records regulations: The Federal rules restrict any use of the information to criminally investigate or prosecute any alcohol or drug abuse patient.In the event this information is protected by the Federal Confidentiality of Alcohol and Drug Abuse Patient Records regulations: The Federal rules restrict any use of the information to criminally investigate or prosecute any alcohol or drug abuse patient.In the event this information is protected by the Federal Confidentiality of Alcohol and Drug Abuse Patient Records regulations: The Federal rules restrict any use of the information to criminally investigate or prosecute any alcohol or drug abuse patient.In the event this information is protected by the Federal Confidentiality of Alcohol and Drug Abuse Patient Records regulations: The Federal rules restrict any use of the information to criminally investigate or prosecute any alcohol or drug abuse patient.In the event this information is protected by the Federal Confidentiality of Alcohol and Drug Abuse Patient Records regulations: The Federal rules restrict any use of the information to criminally investigate or prosecute any alcohol or drug abuse patient.In the event this information is protected by the Federal Confidentiality of Alcohol and Drug Abuse Patient Records regulations: The Federal rules restrict any use of the information to criminally investigate or prosecute any alcohol or drug abuse patient.In the event this information is protected by the Federal Confidentiality of Alcohol and Drug Abuse Patient Records regulations: The Federal rules restrict any use of the information to criminally investigate or prosecute any alcohol or drug abuse patient.In the event this information is protected by the Federal Confidentiality of Alcohol and Drug Abuse Patient Records regulations: The Federal rules restrict any use of the information to criminally investigate or prosecute any alcohol or drug abuse patient.In the event this information is protected by the Federal Confidentiality of Alcohol and Drug Abuse Patient Records regulations: The Federal rules restrict any use of the information to criminally investigate or prosecute any alcohol or drug abuse patient.In the event this information is protected by the Federal Confidentiality of Alcohol and Drug Abuse Patient Records regulations: The Federal rules restrict any use of the information to criminally investigate or prosecute any alcohol or drug abuse patient.In the event this information is protected by the Federal Confidentiality of Alcohol and Drug Abuse Patient Records regulations: The Federal rules restrict any use of the information to criminally investigate or prosecute any alcohol or drug abuse patient.In the event this information is protected by the Federal Confidentiality of Alcohol and Drug Abuse Patient Records regulations: The Federal rules restrict any use of the information to criminally investigate or prosecute any alcohol or drug abuse patient.In the event this information is protected by the Federal Confidentiality of Alcohol and Drug Abuse Patient Records regulations: The Federal rules restrict any use of the information to criminally investigate or prosecute any alcohol or drug abuse patient.In the event this information is protected by the Federal Confidentiality of Alcohol and Drug Abuse Patient Records regulations: The Federal rules restrict any use of the information to criminally investigate or prosecute any alcohol or drug abuse patient.In the event this information is protected by the Federal Confidentiality of Alcohol and Drug Abuse Patient Records regulations: The Federal rules restrict any use of the information to criminally investigate or prosecute any alcohol or drug abuse patient.In the event this information is protected by the Federal Confidentiality of Alcohol and Drug Abuse Patient Records regulations: The Federal rules restrict any use of the information to criminally investigate or prosecute any alcohol or drug abuse patient.In the event this information is protected by the Federal Confidentiality of Alcohol and Drug Abuse Patient Records regulations: The Federal rules restrict any use of the information to criminally investigate or prosecute any alcohol or drug abuse patient.In the event this information is protected by the Federal Confidentiality of Alcohol and Drug Abuse Patient Records regulations: The Federal rules restrict any use of the information to criminally investigate or prosecute any alcohol or drug abuse patient.In the event this information is protected by the Federal Confidentiality of Alcohol and Drug Abuse Patient Records regulations: The Federal rules restrict any use of the information to criminally investigate or prosecute any alcohol or drug abuse patient.In the event this information is protected by the Federal Confidentiality of Alcohol and Drug Abuse Patient Records regulations: The Federal rules restrict any use of the information to criminally investigate or prosecute any alcohol or drug abuse patient.In the event this information is protected by the Federal Confidentiality of Alcohol and Drug Abuse Patient Records regulations: The Federal rules restrict any use of the information to criminally investigate or prosecute any alcohol or drug abuse patient.In the event this information is protected by the Federal Confidentiality of Alcohol and Drug Abuse Patient Records regulations: The Federal rules restrict any use of the information to criminally investigate or prosecute any alcohol or drug abuse patient.In the event this information is protected by the Federal Confidentiality of Alcohol and Drug Abuse Patient Records regulations: The Federal rules restrict any use of the information to criminally investigate or prosecute any alcohol or drug abuse patient.In the event this information is protected by the Federal Confidentiality of Alcohol and Drug Abuse Patient Records regulations: The Federal rules restrict any use of the information to criminally investigate or prosecute any alcohol or drug abuse patient.In the event this information is protected by the Federal Confidentiality of Alcohol and Drug Abuse Patient Records regulations: The Federal rules restrict any use of the information to criminally investigate or prosecute any alcohol or drug abuse patient.In the event this information is protected by the Federal Confidentiality of Alcohol and Drug Abuse Patient Records regulations: The Federal rules restrict any use of the information to criminally investigate or prosecute any alcohol or drug abuse patient.In the event this information is protected by the Federal Confidentiality of Alcohol and Drug Abuse Patient Records regulations: The Federal rules restrict any use of the information to criminally investigate or prosecute any alcohol or drug abuse patient.In the event this information is protected by the Federal Confidentiality of Alcohol and Drug Abuse Patient Records regulations: The Federal rules restrict any use of the information to criminally investigate or prosecute any alcohol or drug abuse patient.In the event this information is protected by the Federal Confidentiality of Alcohol and Drug Abuse Patient Records regulations: The Federal rules restrict any use of the information to criminally investigate or prosecute any alcohol or drug abuse patient.In the event this information is protected by the Federal Confidentiality of Alcohol and Drug Abuse Patient Records regulations: The Federal rules restrict any use of the information to criminally investigate or prosecute any alcohol or drug abuse patient.In the event this information is protected by the Federal Confidentiality of Alcohol and Drug Abuse Patient Records regulations: The Federal rules restrict any use of the information to criminally investigate or prosecute any alcohol or drug abuse patient.In the event this information is protected by the Federal Confidentiality of Alcohol and Drug Abuse Patient Records regulations: The Federal rules restrict any use of the information to criminally investigate or prosecute any alcohol or drug abuse patient.In the event this information is protected by the Federal Confidentiality of Alcohol and Drug Abuse Patient Records regulations: The Federal rules restrict any use of the information to criminally investigate or prosecute any alcohol or drug abuse patient.In the event this information is protected by the Federal Confidentiality of Alcohol and Drug Abuse Patient Records regulations: The Federal rules restrict any use of the information to criminally investigate or prosecute any alcohol or drug abuse patient.In the event this information is protected by the Federal Confidentiality of Alcohol and Drug Abuse Patient Records regulations: The Federal rules restrict any use of the information to criminally investigate or prosecute any alcohol or drug abuse patient.In the event this information is protected by the Federal Confidentiality of Alcohol and Drug Abuse Patient Records regulations: The Federal rules restrict any use of the information to criminally investigate or prosecute any alcohol or drug abuse patient.In the event this information is protected by the Federal Confidentiality of Alcohol and Drug Abuse Patient Records regulations: The Federal rules restrict any use of the information to criminally investigate or prosecute any alcohol or drug abuse patient.In the event this information is protected by the Federal Confidentiality of Alcohol and Drug Abuse Patient Records regulations: The Federal rules restrict any use of the information to criminally investigate or prosecute any alcohol or drug abuse patient.In the event this information is protected by the Federal Confidentiality of Alcohol and Drug Abuse Patient Records regulations: The Federal rules restrict any use of the information to criminally investigate or prosecute any alcohol or drug abuse patient.In the event this information is protected by the Federal Confidentiality of Alcohol and Drug Abuse Patient Records regulations: The Federal rules restrict any use of the information to criminally investigate or prosecute any alcohol or drug abuse patient.In the event this information is protected by the Federal Confidentiality of Alcohol and Drug Abuse Patient Records regulations: The Federal rules restrict any use of the information to criminally investigate or prosecute any alcohol or drug abuse patient.In the event this information is protected by the Federal Confidentiality of Alcohol and Drug Abuse Patient Records regulations: The Federal rules restrict any use of the information to criminally investigate or prosecute any alcohol or drug abuse patient.In the event this information is protected by the Federal Confidentiality of Alcohol and Drug Abuse Patient Records regulations: The Federal rules restrict any use of the information to criminally investigate or prosecute any alcohol or drug abuse patient.In the event this information is protected by the Federal Confidentiality of Alcohol and Drug Abuse Patient Records regulations: The Federal rules restrict any use of the information to criminally investigate or prosecute any alcohol or drug abuse patient.In the event this information is protected by the Federal Confidentiality of Alcohol and Drug Abuse Patient Records regulations: The Federal rules restrict any use of the information to criminally investigate or prosecute any alcohol or drug abuse patient.In the event this information is protected by the Federal Confidentiality of Alcohol and Drug Abuse Patient Records regulations: The Federal rules restrict any use of the information to criminally investigate or prosecute any alcohol or drug abuse patient.In the event this information is protected by the Federal Confidentiality of Alcohol and Drug Abuse Patient Records regulations: The Federal rules restrict any use of the information to criminally investigate or prosecute any alcohol or drug abuse patient.In the event this information is protected by the Federal Confidentiality of Alcohol and Drug Abuse Patient Records regulations: The Federal rules restrict any use of the information to criminally investigate or prosecute any alcohol or drug abuse patient.In the event this information is protected by the Federal Confidentiality of Alcohol and Drug Abuse Patient Records regulations: The Federal rules restrict any use of the information to criminally investigate or prosecute any alcohol or drug abuse patient.In the event this information is protected by the Federal Confidentiality of Alcohol and Drug Abuse Patient Records regulations: The Federal rules restrict any use of the information to criminally investigate or prosecute any alcohol or drug abuse patient.In the event this information is protected by the Federal Confidentiality of Alcohol and Drug Abuse Patient Records regulations: The Federal rules restrict any use of the information to criminally investigate or prosecute any alcohol or drug abuse patient.In the event this information is protected by the Federal Confidentiality of Alcohol and Drug Abuse Patient Records regulations: The Federal rules restrict any use of the information to criminally investigate or prosecute any alcohol or drug abuse patient.In the event this information is protected by the Federal Confidentiality of Alcohol and Drug Abuse Patient Records regulations: The Federal rules restrict any use of the information to criminally investigate or prosecute any alcohol or drug abuse patient.In the event this information is protected by the Federal Confidentiality of Alcohol and Drug Abuse Patient Records regulations: The Federal rules restrict any use of the information to criminally investigate or prosecute any alcohol or drug abuse patient.In the event this information is protected by the Federal Confidentiality of Alcohol and Drug Abuse Patient Records regulations: The Federal rules restrict any use of the information to criminally investigate or prosecute any alcohol or drug abuse patient.In the event this information is protected by the Federal Confidentiality of Alcohol and Drug Abuse Patient Records regulations: The Federal rules restrict any use of the information to criminally investigate or prosecute any alcohol or drug abuse patient.In the event this information is protected by the Federal Confidentiality of Alcohol and Drug Abuse Patient Records regulations: The Federal rules restrict any use of the information to criminally investigate or prosecute any alcohol or drug abuse patient.In the event this information is protected by the Federal Confidentiality of Alcohol and Drug Abuse Patient Records regulations: The Federal rules restrict any use of the information to criminally investigate or prosecute any alcohol or drug abuse patient.In the event this information is protected by the Federal Confidentiality of Alcohol and Drug Abuse Patient Records regulations: The Federal rules restrict any use of the information to criminally investigate or prosecute any alcohol or drug abuse patient.In the event this information is protected by the Federal Confidentiality of Alcohol and Drug Abuse Patient Records regulations: The Federal rules restrict any use of the information to criminally investigate or prosecute any alcohol or drug abuse patient.In the event this information is protected by the Federal Confidentiality of Alcohol and Drug Abuse Patient Records regulations: The Federal rules restrict any use of the information to criminally investigate or prosecute any alcohol or drug abuse patient.In the event this information is protected by the Federal Confidentiality of Alcohol and Drug Abuse Patient Records regulations: The Federal rules restrict any use of the information to criminally investigate or prosecute any alcohol or drug abuse patient.In the event this information is protected by the Federal Confidentiality of Alcohol and Drug Abuse Patient Records regulations: The Federal rules restrict any use of the information to criminally investigate or prosecute any alcohol or drug abuse patient.In the event this information is protected by the Federal Confidentiality of Alcohol and Drug Abuse Patient Records regulations: The Federal rules restrict any use of the information to criminally investigate or prosecute any alcohol or drug abuse patient.In the event this information is protected by the Federal Confidentiality of Alcohol and Drug Abuse Patient Records regulations: The Federal rules restrict any use of the information to criminally investigate or prosecute any alcohol or drug abuse patient.In the event this information is protected by the Federal Confidentiality of Alcohol and Drug Abuse Patient Records regulations: The Federal rules restrict any use of the information to criminally investigate or prosecute any alcohol or drug abuse patient.In the event this information is protected by the Federal Confidentiality of Alcohol and Drug Abuse Patient Records regulations: The Federal rules restrict any use of the information to criminally investigate or prosecute any alcohol or drug abuse patient.In the event this information is protected by the Federal Confidentiality of Alcohol and Drug Abuse Patient Records regulations: The Federal rules restrict any use of the information to criminally investigate or prosecute any alcohol or drug abuse patient.In the event this information is protected by the Federal Confidentiality of Alcohol and Drug Abuse Patient Records regulations: The Federal rules restrict any use of the information to criminally investigate or prosecute any alcohol or drug abuse patient.In the event this information is protected by the Federal Confidentiality of Alcohol and Drug Abuse Patient Records regulations: The Federal rules restrict any use of the information to criminally investigate or prosecute any alcohol or drug abuse patient.In the event this information is protected by the Federal Confidentiality of Alcohol and Drug Abuse Patient Records regulations: The Federal rules restrict any use of the information to criminally investigate or prosecute any alcohol or drug abuse patient. Reason for Visit (unrecogniz ed section and content) Reason Onset Date Comments Transition Of Care 09/14/2021 TCM Initial M [facility] Hospital Discharge 09/13/21 Reason Onset Date Comments Transition Of Care 09/14/2021 TCM Pharmacy- Hospital discharge 09/13/21 Reason Comments Recheck Hosp follow up Specialty Diagnoses / Procedures Referred By Contac t Referred To Contact Internal Medicine / INTERNAL MEDICINE Diagnoses hospital follow up Procedures 4C EST HOSP/ER FU Hans Contreras [address] [place] [address] Anjel Braga APRN.PATIENT CARE ASSOCIATE [address] [place] [address] Referral ID Status Reason Start Date Expiration Date V isits Requested Visits Authorized [id number] Closed Financial Clearance Required - OON Payor Patient Cleared INN/SMCP Payor Auth Obtained 09/15/2021 06/18/2022 1 1 Reason Comments Patient Update Reason Comments Medication Problem Plan of Care Reason Comments Nifedipine issue Reason Onset Date Comments Transition Of Care 09/16/2021 [facility] Discharge 09/13/21 Reason Comments FYI-OT plan of care Reason Comments Anticoagulation Reason Comments Orders Reason Comments medication issue Reason Comments [facility] verbal order needed Reason Comments Medication Problem Reason Comments Consult gallbladder, abdomen pain Specialty Diagnoses / Procedures Referred By Contac t Referred To Contact General Surgery / GENERAL SURGERY Diagnoses Acute cholecystitis Abdominal pain Acute cholecystitis, persistent abdominal pain Procedures OFFICE/OUTPATIENT NEW MODERATE MDM 45-59 MINUTES NEW DDI PATIENT Adelaida Farias MD [address] [place] [address] Kaye Ortega MD [address] [facility] [place] [address] Referral ID Status Reason Start Date Expiration Date V isits Requested Visits Authorized [id number] Closed Financial Clearance Required - OON Payor Patient Cleared INN/SMCP Payor Auth Obtained 09/08/2021 06/18/2022 1 1 Reason Comments Patient Question visit from 09/15/21 Reason Comments Patient Question Reason Comments Appointment CONSULT FOR CHOLECYS TECTOMY Reason Comments Appointment Reason Onset Date Comments Transition Of Care 09/21/2021 [facility] Discharge 09/13/21 Reason Comments Work excuse letter Reason Onset Date Comments Transition Of Care 09/29/2021 [facility] Discharge 09/13/21 Reason Onset Date Comments Refill Request 10/04/2021 Reason Comments Hypertension Specialty Diagnoses / Procedures Referred By Contac t Referred To Contact Internal Medicine / INTERNAL MEDICINE Diagnoses 09/13 ER Discharge main campus Broken ribs follow up Procedures 4C EST HOSP/ER FU Daija Morton MD [address] [place] [address] Anjel Braga APRN.LAMIN [address] [place] [address] Referral ID Status Reason Start Date Expiration Date Visits Re quested Visits Authorized [id number] Closed 10/07/2021 06/18/2022 1 1 Reason Comments Coumadin update / [facility] Reason Comments Patient Update Orders Reason Comments [...] VOL VNTJ Emilie Jauregui PA-C [address] [place] [address] [place] [address] Referral ID Status Reason Start Date Expiration Date V isits Requested Visits Authorized [id number] Closed Auto-Generate d Referral 11/05/2021 06/18/2022 1 1 Specialty Diagnoses / Procedures Referred By Contac t Referred To Contact [facility] Diagnoses COPD with chronic bronchitis (HCC) Procedures OXIMETRY WITH AMBULATION NONINVASIVE EAR/PULSE OXIMETRY MULTIPLE DETER Emilie Jauregui PA-C [address] [place] [address] [address] Referral ID Status Reason Start Date Expiration Date V isits Requested Visits Authorized [id number] Closed Auto-Generate d Referral 11/05/2021 06/18/2022 1 1 Specialty Diagnoses / Procedures Referred By Contac t Referred To Contact Pulmonary and Critical Care Medicine / PULMONARY MEDICINE Diagnoses pre op clearance for gen surgery Procedures RI EST PULM GENERAL Daija Morton MD [address] [place] [address] Emilie Jauregui PA-C [address] [address] Referral ID Status Reason Start Date Expiration Date Visits Re quested Visits Authorized [id number] Closed 10/21/2021 06/18/2022 1 1 Reason Comments Results Reason Comments Cardiac Clearance surgery to have gall bladder removed Reason Comments UTI Specialty Diagnoses / Procedures Referred By Contac t Referred To Contact Internal Medicine / INTERNAL MEDICINE Diagnoses Essential hypertension UTI Procedures OFFICE/OUTPATIENT ESTABLISHED MOD MDM 30-39 MIN 4C EST Anjel Segura, TRANSLITERATOR.PATIENT CARE ASSOCIATE [address] [place] [address] Referral ID Status Reason Start Date Expiration Date Visits Re quested Visits Authorized [id number] Closed 11/17/2021 06/18/2022 1 1 Reason Onset Date Comments Refill Request 11/18/2021 Reason Onset Date Comments Refill Request 11/19/2021 Reason Comments Medication Request Reason Comments Clinical Update Reason Comments Patient Update Medication Request Reason Comments Appointment 01/14 ED F/U-need ED location to retrieve records Reason Comments ER F/U [facility] Specialty Diagnoses / Procedures Referred By Contac t Referred To Contact Internal Medicine / INTERNAL MEDICINE Diagnoses Follow-up examination hospital f/u Procedures OFFICE/OUTPATIENT ESTABLISHED MOD MDM 30-39 MIN 4C EST HOSP/ER MD Roosevelt Marks Terri, TRANSLITERATOR.COMMUNICATIONS DEPARTMENT CHAIR [address] [place] [address] Referral ID Status Reason Start Date Expiration Date Visits Re quested Visits Authorized [id number] Closed 01/14/2022 06/18/2022 1 1 Reason Comments Established Patient follow up anand r Reason Comments Recheck Follow up, Hosp foll ow up Specialty Diagnoses / Procedures Referred By Contac t Referred To Contact Internal Medicine / INTERNAL MEDICINE Diagnoses [facility] ER f/u. 01-25-22. Black stool. Procedures 4C EST HOSP/ER MD Omi Marks Joy, APRN.PATIENT CARE ASSOCIATE [address] [place] [address] Referral ID Status Reason Start Date Expiration Date Visits Re quested Visits Authorized [id number] Closed 01/28/2022 04/28/2022 1 1 Reason Comments Follow Up Specialty Diagnoses / Procedures Referred By Contac t Referred To Contact Vascular Surgery / VASCULAR SURGERY Diagnoses PVD 1 year f/u with PVR and arterial Duplex [place] [address] [place] [address] [place] [address] [place] [address] Referral ID Status Reason Start Date Expiration Date Visits Re quested Visits Authorized [id number] Closed 01/31/2022 06/18/2022 1 1 Reason Comments Results, Lab Reason Onset Date Comments Refill Request 02/22/2022 Reason Comments Erroneous encounter-disregard Reason Comments Fall Reason Comments SWCC orders needed today Reason Comments admit to [facility] Reason Comments Social Work Services Reason Comments Medication Question Reason Comments Syncope Reason Onset Date Comments Refill Request 08/25/2022 Patient Update 08/25/2022 Reason Comments halfway follow-up Reason Onset Date Comments Refill Request 08/29/[address] [facility] Request Reason Comments patient problem Reason Onset [...] fix this, also fell twice while in [facility] Reason Comments Mental status change Reason Comments No Show Reason Onset Date Comments Refill Request 01/23/2024 Reason Onset Date Comments Refill Request 03/12/2024 Reason Comments UTI Foul odor, confusion Reason Comments Home Health Orders Reason Comments [facility] update Reason Comments Home Care Management Patient Update Reason Comments halfway discharge Gem guzman Reason Onset Date Comments Refill Request 12/13/2024 Reason Comments Jarett requesting records Reason Onset Date Comments Refill Request 12/16/2024 Reason Onset Date Comments Refill Request 01/17/2025 Care Teams (unrecognized sec tion and content) Rn Gastroenterology Relationship Specialty Start Date End Date Daija Morton MD [address] [place] [address] PCP - General Internal Medicine 03/21/17 Beatriz Correa CNP Referring 09/28/20 Daija Morton MD [address] [place] [address] Home Care Physician Internal Medicine 09/28/20 13, Pharmacist [phone] [place] [address] Pharmacist Pharmacy 06/17/21 Lizette Ulloa RN [address] [place] [address] Primary Care Gis Technician Internal Medicine 09/14/21 10/14/21 Tamika Almaguer [employer] Solar Energy System Installer 09/26/17 Rn Gastroenterology Relationship Specialty Start Date End Date Daija Morton MD [address] [place] [address] PCP - General Internal Medicine 03/21/17 Beatriz Correa CNP Referring 09/28/20 Daija Morton MD [address] [place] [address] Home Care Physician Internal Medicine 09/28/20 13, Pharmacist [id number] [place] [address] Pharmacist Pharmacy 06/17/21 Lizette Ulloa, RN [address] [place] [address] Primary Care Gis Technician Internal Medicine 09/14/21 10/14/21 Tamika Almaguer [employer] Solar Energy System Installer 09/26/17 Rn Gastroenterology Relationship Specialty Start Date End Date Daija Morton MD [address] [place] [address] PCP - General Internal Medicine 03/21/17 Beatriz Correa, PATIENT CARE ASSOCIATE Referring 09/28/20 Daija Morton MD [address] [place] [address] Home Care Physician Internal Medicine 09/28/20 13, Pharmacist [id number] [place] [address] Pharmacist Pharmacy 06/17/21 Lizette Ulloa, RN [address] [place] [address] Primary Care Gis Technician Internal Medicine 09/14/21 10/14/21 Tamika Almaguer [employer] Solar Energy System Installer 09/26/17 Rn Gastroenterology Relationship Specialty Start Date End Date Daija Morton MD [address] [place] [address] PCP - General Internal Medicine 03/21/17 Beatriz Correa, PATIENT CARE ASSOCIATE Referring 09/28/20 Daija Morton MD [address] [place] [address] Home Care Physician Internal Medicine 09/28/20 13, Pharmacist [phone] [place] [address] Pharmacist Pharmacy 06/17/21 Lizette Ulloa, RN [address] [place] [address] Primary Care Gis Technician Internal Medicine 09/14/21 10/14/21 Tamika Almaguer [employer] Solar Energy System Installer 09/26/17 Rn Gastroenterology Relationship Specialty Start Date End Date Daija Morton MD [address] [place] [address] PCP - General Internal Medicine 03/21/17 Beatriz Correa CNP Referring 09/28/20 Daija Morton MD [address] [place] [address] Home Care Physician Internal Medicine 09/28/20 13, Pharmacist [phone] [place] [address] Pharmacist Pharmacy 06/17/21 Lizette Ulloa, [place] [place] [address] Primary Care Gis Technician Internal Medicine 09/14/21 10/14/21 Tamika HARRELL Solar Energy System Installer 09/26/17 Rn Gastroenterology Relationship Specialty Start Date End Date Daija Morton MD [address] [place] [address] PCP - General Internal Medicine 03/21/17 Beatriz Correa CNP Referring 09/28/20 Daija Morton MD [address] [place] [address] Home Care Physician Internal Medicine 09/28/20 13, Pharmacist [phone] [place] [address] Pharmacist Pharmacy 06/17/21 Lizette Ulloa, [place] [place] [address] Primary Care Gis Technician Internal Medicine 09/14/21 10/14/21 Tamika HARRELL Solar Energy System Installer 09/26/17 Rn Gastroenterology Relationship Specialty Start Date End Date Daija Morton MD [address] [place] [address] PCP - General Internal Medicine 03/21/17 Beatriz Correa CNP Referring 09/28/20 Daija Morton MD [address] [place] [address] Home Care Physician Internal Medicine 09/28/20 13, Pharmacist [id number] [place] [address] Pharmacist Pharmacy 06/17/21 Lizette Ulloa, RN [address] [place] [address] Primary Care Gis Technician Internal Medicine 09/14/21 10/14/21 Tamika Almaguer [employer]SP[employer] Solar Energy System Installer 09/26/17 Rn Gastroenterology Relationship Specialty Start Date End Date Daija Morton MD [address] [place] [address] PCP - General Internal Medicine 03/21/17 Beatriz Correa, PATIENT CARE ASSOCIATE Referring 09/28/20 Daija Morton MD [address] [place] [address] Home Care Physician Internal Medicine 09/28/20 13, Pharmacist [id number] [place] [address] Pharmacist Pharmacy 06/17/21 Lizette Ulloa, [place] [address] [place] [address] Primary Care Gis Technician Internal Medicine 09/14/21 10/14/21 Kaye Ortega MD [address] [place] [address] General Surgery 09/21/21 Tamika Almaguer PASSANYI Solar Energy System Installer 09/26/17 Rn Gastroenterology Relationship Specialty Start Date End Date Daija Morton MD [address] [place] [address] PCP - General Internal Medicine 03/21/17 Beatriz Correa, PATIENT CARE ASSOCIATE Referring 09/28/20 Daija Morton MD [address] [place] [address] Home Care Physician Internal Medicine 09/28/20 13, Pharmacist [phone] [place] [address] Pharmacist Pharmacy 06/17/21 Lizette Ulloa, [place] [address] [facility] [place] [address] Primary Care Gis Technician Internal Medicine 09/14/21 10/14/21 Kaye Ortega MD [address] [place] [address] General Surgery 09/21/21 Tamika HARRELL Solar Energy System Installer 09/26/17 Rn Gastroenterology Relationship Specialty Start Date End Date Daija Morton MD [address] [place] [address] PCP - General Internal Medicine 03/21/17 Beatriz Correa CNP Referring 09/28/20 Daija Morton MD [address] [place] [address] Home Care Physician Internal Medicine 09/28/20 13, Pharmacist [phone] [place] [address] Pharmacist Pharmacy 06/17/21 Lizette Ulloa, [address] [place] [address] Primary Care Gis Technician Internal Medicine 09/14/21 10/14/21 Kaye Ortega MD [address] [place] [address] General Surgery 09/21/21 Tamika HARRELL Solar Energy System Installer 09/26/17 Rn Gastroenterology Relationship Specialty Start Date End Date Daija Morton MD [address] [place] [address] PCP - General Internal Medicine 03/21/17 Beatriz Correa, LAMIN Referring 09/28/20 Daija Morton MD [address] [place] [address] Home Care Physician Internal Medicine 09/28/20 13, Pharmacist [address] [place] [address] Pharmacist Pharmacy 06/17/21 Lizette Ulloa RN [address] [place] [address] Primary Care Gis Technician Internal Medicine 09/14/21 10/14/21 Kaye Ortega MD [address] [facility] [place] [address] General Surgery 09/21/21 [facility]ika [facility] Solar Energy System Installer 09/26/17 Rn Gastroenterology Relationship Specialty Start Date End Date Daija Morton MD [address] [place] [address] PCP - General Internal Medicine 03/21/17 Beatriz Correa, PATIENT CARE ASSOCIATE Referring 09/28/20 Daija Morton MD [address] [place] [address] Home Care Physician Internal Medicine 09/28/20 13, Pharmacist [phone] [place] [address] Pharmacist Pharmacy 06/17/21 Lizette Ulloa RN [address] [place] [address] Primary Care Gis Technician Internal Medicine 09/14/21 10/14/21 Kaye Ortega MD [address] [facility] [place] [address] General Surgery 09/21/21 Tamika HARRELL Solar Energy System Installer 09/26/17 Rn Gastroenterology Relationship Specialty Start Date End Date Daija Morton MD [address] [place] [address] PCP - General Internal Medicine 03/21/17 Beatriz Correa, LAMIN Referring 09/28/20 Daija Morton MD [address] [place] [address] Home Care Physician Internal Medicine 09/28/20 13, Pharmacist [phone] [place] [address] Pharmacist Pharmacy 06/17/21 Lizette Ulloa RN [address] [facility] [place] [place] [address] Primary Care Gis Technician Internal Medicine 09/14/21 10/14/21 Kaye Ortega MD [address] [facility] [place] [address] General Surgery 09/21/21 Tamika [facility] Solar Energy System Installer 09/26/17 Rn Gastroenterology Relationship Specialty Start Date End Date Daija Morton MD [address] [place] [address] PCP - General Internal Medicine 03/21/17 Beatriz Correa CNP Referring 09/28/20 Daija Morton MD [address] [place] [address] Home Care Physician Internal Medicine 09/28/20 Fco Franklin, [address] [place] [address] Motor And Chassis Inspector 10/08/20 12/21/20 13, Pharmacist [phone] [place] [address] Pharmacist Pharmacy 06/17/21 Lizette Ulloa RN [address] [facility] [place] [place] [address] Primary Care Gis Technician Internal Medicine 09/14/21 10/14/21 Kaye Ortega MD [address] [place] [address] General Surgery 09/21/21 Tamika Minimary Almaguer [employer] Solar Energy System Installer 09/26/17 Rn Gastroenterology Relationship Specialty Start Date End Date Daija Morton MD [address] [place] [address] PCP - General Internal Medicine 03/21/17 Beatriz Correa CNP Referring 09/28/20 Daija Morton MD [address] [place] [address] Home Care Physician Internal Medicine 09/28/20 13, Pharmacist [address] [place] [address] Pharmacist Pharmacy 06/17/21 Lizette Ulloa RN [address] [place] [address] Primary Care Gis Technician Internal Medicine 09/14/21 10/14/21 Kaye Ortega MD [address] [place] [address] General Surgery 09/21/21 Tamika Almaguer [employer] Solar Energy System Installer 09/26/17 Rn Gastroenterology Relationship Specialty Start Date End Date Daija Morton MD [address] [place] [address] PCP - General Internal Medicine 03/21/17 Beatriz Correa CNP Referring 09/28/20 10/12/21 Daija Morton MD [address] [place] [address] Home Care Physician Internal Medicine 09/28/20 10/12/21 13, Pharmacist [phone] [place] [address] Pharmacist Pharmacy 06/17/21 Lizette Ulloa, [place] [place] [address] Primary Care Gis Technician Internal Medicine 09/14/21 10/14/21 Kaye Ortega MD [address] [place] [phone] General Surgery 09/21/21 Ye Coello MD [address] [place], [place] [id number] General Surgery 10/13/21 Emilie Jauregui PA-C [address] [place] [address] Specialty Leather Piece Inspector Pulmonary and Critical Care Medicine 10/13/21 Ryan May MD [address] [place], [place] [id number] Specialty Leather Piece Inspector Vascular Surgery 10/13/21 Geronimo Medina, DO [address] [address] Cheese Tester Cardiology 10/13/21 Tamika Almaguer [facility] Solar Energy System Installer 09/26/17 Rn Gastroenterology Relationship Specialty Start Date End Date Daija Morton MD [address] [place], [place] [id number] PCP - General Internal Medicine 03/21/17 13, Pharmacist [phone] [place] [address] Pharmacist Pharmacy 06/17/21 Lizette Ulloa, [place] [address] [place] [address] Primary Care Gis Technician Internal Medicine 09/14/21 10/14/21 Kaye Ortega MD [address] [place] [phone] General Surgery 09/21/21 Ye Coello MD [address] [place], [place] [id number] General Surgery 10/13/21 Emilie Jauregui PA-C [address] [place], [place] [id number] Specialty Leather Piece Inspector Pulmonary and Critical Care Medicine 10/13/21 Ryan May MD [address] [place] [address] Specialty Leather Piece Inspector Vascular Surgery 10/13/21 Geronimo Medina DO [address] [address] Cheese Tester Cardiology 10/13/21 Tamika Almaguer [facility] Solar Energy System Installer 09/26/17 Rn Gastroenterology Relationship Specialty Start Date End Date Daija Morton MD [address] [place], [place] [id number] PCP - General Internal Medicine 03/21/17 Beatriz Correa, PATIENT CARE ASSOCIATE Referring 09/28/20 10/12/21 Daija Morton MD [address] [place], [place] [address] Home Care Physician Internal Medicine 09/28/20 10/12/21 13, Pharmacist [address] [place] [address] Pharmacist Pharmacy 06/17/21 Lizette Ulloa, [place] [address] [place] [address] Primary Care Gis Technician Internal Medicine 09/14/21 10/14/21 Kaye Ortega MD [address] [place] [phone] General Surgery 09/21/21 Ye Coello MD [address] [place] [id number] General Surgery 10/13/21 Emilie Jauregui PA-C [address] [place] [address] Specialty Leather Piece Inspector Pulmonary and Critical Care Medicine 10/13/21 Ryan May MD [address] [place] [address] Specialty Leather Piece Inspector Vascular Surgery 10/13/21 Geronimo Medina, [address] [address] Cheese Tester Cardiology 10/13/21 Tamika Canales Tripp [facility] [employer] Energy System Installer 09/26/17 Rn Gastroenterology Relationship Specialty Start Date End Date Daija Morton MD [address] [place] [address] PCP - General Internal Medicine 03/21/17 13, Pharmacist [phone] [place] [address] Pharmacist Pharmacy 06/17/21 Lizette Ulloa, RN [address] [place] [address] Primary Care Gis Technician Internal Medicine 09/14/21 10/14/21 Kaye Ortega MD [address] [place] [address] General Surgery 09/21/21 Ye Coello MD [address] [place] [address] General Surgery 10/13/21 Emilie Jauregui PA-C [address] [place] [address] Specialty Leather Piece Inspector Pulmonary and Critical Care Medicine 10/13/21 Ryan May MD [address] [place], [place] [id number] Specialty Leather Piece Inspector Vascular Surgery 10/13/21 Geronimo Medina DO [address] [address] Cheese Tester Cardiology 10/13/21 Tamika HARRELL [employer] Installer 09/26/17 Rn Gastroenterology Relationship Specialty Start Date End Date Daija Morton MD [address] [place] [address] PCP - General Internal Medicine 03/21/17 13, Pharmacist [address] [place] [address] Pharmacist Pharmacy 06/17/21 Kaye Ortega MD [address] [place] [address] General Surgery 09/21/21 Ye Coello MD [address] [place], [place] [id number] General Surgery 10/13/21 Emilie Jauregui PA-C [address] [place] [place], [place] 911011 Specialty Leather Piece Inspector Pulmonary and Critical Care Medicine 10/13/21 Ryan May MD [address] [place] [address] Specialty Leather Piece Inspector Vascular Surgery 10/13/21 Geronimo Medina DO [address] [address] Cheese Tester Cardiology 10/13/21 Tamika HARRELL [employer] System Installer 09/26/17 Rn Gastroenterology Relationship Specialty Start Date End Date Daija Morton MD [address] [place] [address] PCP - General Internal Medicine 03/21/17 13, Pharmacist [phone] [place] [address] Pharmacist Pharmacy 06/17/21 Kaye Ortega MD [address] [place] [address] General Surgery 09/21/21 Ye Coello MD [address] [place], [place] [id number] General Surgery 10/13/21 Emilie Jauregui PA-C [address] [place] [address] Specialty Leather Piece Inspector Pulmonary and Critical Care Medicine 10/13/21 Ryan May MD [address] [place] [address] Specialty Leather Piece Inspector Vascular Surgery 10/13/21 Geronimo Medina, [address] [address] Cheese Tester Cardiology 10/13/21 Tamika Almaguer [facility] Solar Energy System Installer 09/26/17 Rn Gastroenterology Relationship Specialty Start Date End Date Daija Morton MD [address] [place] [address] PCP - General Internal Medicine 03/21/17 13, Pharmacist [phone] [place] [address] Pharmacist Pharmacy 06/17/21 Kaye Ortega MD [address] [place] [address] General Surgery 09/21/21 Ye Coello MD [address] [place], [place] [id number] General Surgery 10/13/21 Emilie Jauregui PA-C [address] [place] [address] Specialty Leather Piece Inspector Pulmonary and Critical Care Medicine 10/13/21 Ryan May MD [address] [place] [address] Specialty Leather Piece Inspector Vascular Surgery 10/13/21 Geronimo Medina, DO [address] [address] Cheese Tester Cardiology 10/13/21 Tamika Almaguer [employer] System Installer 09/26/17 Rn Gastroenterology Relationship Specialty Start Date End Date Daija Morton MD [address] [place] [address] PCP - General Internal Medicine 03/21/17 13, Pharmacist [phone] [place] [address] Pharmacist Pharmacy 06/17/21 Kaye Ortega MD [address] [place] [phone] General Surgery 09/21/21 Ye Coello MD [address] [place], [place] [id number] General Surgery 10/13/21 Emilie Jauregui PA-C [address] [place], [place] 887311 Specialty Leather Piece Inspector Pulmonary and Critical Care Medicine 10/13/21 Ryan May MD [address] [place], [place] 7402195 Specialty Leather Piece Inspector Vascular Surgery 10/13/21 Geronimo Medina, DO [address] [address] Cheese Tester Cardiology 10/13/21 Tamika HARRELL [employer] System Installer 09/26/17 Rn Gastroenterology Relationship Specialty Start Date End Date Daija Morton MD [address] [place] [address] PCP - General Internal Medicine 03/21/17 13, Pharmacist [phone] [place] [address] Pharmacist Pharmacy 06/17/21 Kaye Ortega MD [address] [place] [phone] General Surgery 09/21/21 Ye Coello MD [address] [place], [place] [id number] General Surgery 10/13/21 Emilie Jauregui PA-C [address] [place] [address] Specialty Leather Piece Inspector Pulmonary and Critical Care Medicine 10/13/21 Ryan May MD [address] [place] [address] Specialty Leather Piece Inspector Vascular Surgery 10/13/21 Geronimo Medina, [address] [address] Cheese Tester Cardiology 10/13/21 Tamika Almaguer [facility] Solar Energy System Installer 09/26/17 Rn Gastroenterology Relationship Specialty Start Date End Date Daija Morton MD [address] [place] [address] PCP - General Internal Medicine 03/21/17 13, Pharmacist [address] [place] [address] Pharmacist Pharmacy 06/17/21 Kaye Ortega MD [address] [place] [address] General Surgery 09/21/21 Ye Coello MD [address] [place] [address] General Surgery 10/13/21 Emilie Jauregui PA-C [address] [place] [address] Specialty Leather Piece Inspector Pulmonary and Critical Care Medicine 10/13/21 Ryan May MD [address] [place], [place] [phone] Specialty Leather Piece Inspector Vascular Surgery 10/13/21 Geronimo Medina DO [address] [address] Cheese Tester Cardiology 10/13/21 Tamikadestiny Almaguer [facility] Solar Energy System Installer 09/26/17 Rn Gastroenterology Relationship Specialty Start Date End Date Daija Morton MD [address] [place], [place] 014051 PCP - General Internal Medicine 03/21/17 13, Pharmacist 12073 [place] [address] Pharmacist Pharmacy 06/17/21 Kaye Ortega MD [address] [place] [address] General Surgery 09/21/21 Ye Coello MD [address] [place] [address] General Surgery 10/13/21 Emilie Jauregui PA-C [address] [place] [address] Specialty Leather Piece Inspector Pulmonary and Critical Care Medicine 10/13/21 Ryan May MD [address] [place], [place] 0279295 Specialty Leather Piece Inspector Vascular Surgery 10/13/21 Geronimo Medina DO [address] [address] Cheese Tester Cardiology 10/13/21 Tamika HARRELL Solar [employer] System Installer 09/26/17 Rn Gastroenterology Relationship Specialty Start Date End Date Daija Morton MD [address] [place] [address] PCP - General Internal Medicine 03/21/17 13, Pharmacist [phone] [place] [address] Pharmacist Pharmacy 06/17/21 Kaye Ortega MD [address] [place] [address] General Surgery 09/21/21 Ye Coello MD [address] [place], [place] [id number] General Surgery 10/13/21 Emilie Jauregui PA-C [address] [place], [place] 747071 Specialty Leather Piece Inspector Pulmonary and Critical Care Medicine 10/13/21 Ryan May MD [address] [place] [address] Specialty Leather Piece Inspector Vascular Surgery 10/13/21 Geronimo Medina DO [address] [address] Cheese Tester Cardiology 10/13/21 Tamika HARRELL [employer] System Installer 09/26/17 Rn Gastroenterology Relationship Specialty Start Date End Date Daija Morton MD [address] [place] [address] PCP - General Internal Medicine 03/21/17 13, Pharmacist [address] [place] [address] Pharmacist Pharmacy 06/17/21 Kaye Ortega MD [address] [place] [address] General Surgery 09/21/21 Ye Coello MD [address] [place], [place] [id number] General Surgery 10/13/21 Emilie Jauregui PA-C [address] [place], [place] 370341 Specialty Leather Piece Inspector Pulmonary and Critical Care Medicine 10/13/21 Ryan May MD [address] [place], [place] [phone] Specialty Leather Piece Inspector Vascular Surgery 10/13/21 Geronimo Medina, [address] [address] Cheese Tester Cardiology 10/13/21 Tamika Almaguer [facility] Solar Energy System Installer 09/26/17 Rn Gastroenterology Relationship Specialty Start Date End Date Daija Morton MD [address] [place] [address] PCP - General Internal Medicine 03/21/17 13, Pharmacist [address] [place] [address] Pharmacist Pharmacy 06/17/21 Kaye Ortega MD [address] [place] [address] General Surgery 09/21/21 Ye Coello MD [address] [place], [place] [id number] General Surgery 10/13/21 Emilie Jauregui PA-C [address] [place] [address] Specialty Leather Piece Inspector Pulmonary and Critical Care Medicine 10/13/21 Ryan May MD [address] [facility] [place] [place] [address] Specialty Leather Piece Inspector Vascular Surgery 10/13/21 Geronimo Medina DO [address] [address] Cheese Tester Cardiology 10/13/21 Tamika HARRELL [employer] System Installer 09/26/17 Rn Gastroenterology Relationship Specialty Start Date End Date Daija Morton MD [address] [place] [address] PCP - General Internal Medicine 03/21/17 13, Pharmacist [phone] [place] [address] Pharmacist Pharmacy 06/17/21 Kaye Ortega MD [address] [place] [address] General Surgery 09/21/21 Ye Coello MD [address] [place], [place] [id number] General Surgery 10/13/21 Emilie Jauregui PA-C [address] [place] [address] Specialty Leather Piece Inspector Pulmonary and Critical Care Medicine 10/13/21 Ryan May MD [address] [facility] [place] [place] [address] Specialty Leather Piece Inspector Vascular Surgery 10/13/21 Geronimo Medina DO [address] [address] Cheese Tester Cardiology 10/13/21 Tamika HARRELL [employer] System Installer 09/26/17 Rn Gastroenterology Relationship Specialty Start Date End Date Daija Morton MD [address] [place] [address] PCP - General Internal Medicine 03/21/17 13, Pharmacist [address] [place] [address] Pharmacist Pharmacy 06/17/21 Kaye Ortega MD [address] [place] [phone] General Surgery 09/21/21 Ye Coello MD [address] [place], [place] [id number] General Surgery 10/13/21 Emilie Jauregui PANeshaC [address] [place] [address] Specialty Leather Piece Inspector Pulmonary and Critical Care Medicine 10/13/21 Ryan May MD [address] [place] [address] Specialty Leather Piece Inspector Vascular Surgery 10/13/21 Geronimo Medina, DO [address] [address] Cheese Tester Cardiology 10/13/21 Tamika Almaguer [facility] Solar Energy System Installer 09/26/17 Rn Gastroenterology Relationship Specialty Start Date End Date Daija Morton MD [address] [place] [address] PCP - General Internal Medicine 03/21/17 13, Pharmacist [address] [place] [address] Pharmacist Pharmacy 06/17/21 Kaye Ortega MD [address] [place] [address] General Surgery 09/21/21 Ye Coello MD [address] [place] [address] General Surgery 10/13/21 Emilie Jauregui PA-C [address] [place] [address] Specialty Leather Piece Inspector Pulmonary and Critical Care Medicine 10/13/21 Ryan May MD [address] [place], [place] 9273095 Specialty Leather Piece Inspector Vascular Surgery 10/13/21 Geronimo Medina, [address] [address] Cheese Tester Cardiology 10/13/21 Tamika Almaguer [employer] System Installer 09/26/17 Rn Gastroenterology Relationship Specialty Start Date End Date Daija Morton MD [address] [place], [place] 732571 PCP - General Internal Medicine 03/21/17 13, Pharmacist [address] [place] [address] Pharmacist Pharmacy 06/17/21 Kaye Ortega MD [address] [place] [address] General Surgery 09/21/21 Ye Coello MD [address] [place], [place] [id number] General Surgery 10/13/21 Emilie Jauregui PA-C [address] [place], [place] 867681 Specialty Leather Piece Inspector Pulmonary and Critical Care Medicine 10/13/21 Ryan May MD [address] [place], [place] 2365795 Specialty Leather Piece Inspector Vascular Surgery 10/13/21 Geronimo Medina DO [address] [address] Cheese Tester Cardiology 10/13/21 Tamika Almaguer [employer] Installer 09/26/17 Rn Gastroenterology Relationship Specialty Start Date End Date Daija Morton MD [address] [place] [address] PCP - General Internal Medicine 03/21/17 13, Pharmacist [phone] [place] [address] Pharmacist Pharmacy 06/17/21 Kaye Ortega MD [address] [place] [address] General Surgery 09/21/21 Ye Coello MD [address] [place], [place] [id number] General Surgery 10/13/21 Emilie Jauregui PA-C [address] [place] [address] Specialty Leather Piece Inspector Pulmonary and Critical Care Medicine 10/13/21 Ryan May MD [address] [place], [place] 7994495 Specialty Leather Piece Inspector Vascular Surgery 10/13/21 Geronimo Medina, DO [address] [address] Cheese Tester Cardiology 10/13/21 Tamika Almaguer [employer] Installer 09/26/17 Rn Gastroenterology Relationship Specialty Start Date End Date Daija Morton MD [address] [place] [address] PCP - General Internal Medicine 03/21/17 13, Pharmacist [address] [place] [address] Pharmacist Pharmacy 06/17/21 Kaye Ortega MD [address] [place] [address] General Surgery 09/21/21 Ye Coello MD [address] [place], [place] [id number] General Surgery 10/13/21 Emilie Jauregui PA-C [address] [place] [address] Specialty Leather Piece Inspector Pulmonary and Critical Care Medicine 10/13/21 Ryan May MD [address] [place] [address] Specialty Leather Piece Inspector Vascular Surgery 10/13/21 Geronimo Medina DO [address] [address] Cheese Tester Cardiology 10/13/21 Tamika Almaguer [facility] Solar Energy System Installer 09/26/17 Rn Gastroenterology Relationship Specialty Start Date End Date Daija Morton MD [address] [place], [place] 276424 [phone] PCP - General Internal Medicine 03/21/17 13, Pharmacist [address] [place], [place] [phone] Pharmacist Pharmacy 06/17/21 Kaye Ortega MD [address] [place] [address] General Surgery 09/21/21 Ye Coello MD [address] [place], [place] [id number] General Surgery 10/13/21 Emilie Jauregui PA-C [address] [place] [address] Specialty Leather Piece Inspector Pulmonary and Critical Care Medicine 10/13/21 Ryan May MD [address] [facility] [place] [place] [address] Specialty Leather Piece Inspector Vascular Surgery 10/13/21 Geronimo Medina DO [address] [address] Cheese Tester Cardiology 10/13/21 Tamika HARRELL Solar Energy System Installer 09/26/17 Rn Gastroenterology Relationship Specialty Start Date End Date Daija Morton MD [address] [place] [address] PCP - General Internal Medicine 03/21/17 13, Pharmacist [address] [place] [address] Pharmacist Pharmacy 06/17/21 Kaye Ortega MD [address] [place] [address] General Surgery 09/21/21 Ye Coello MD [address] [place], [place] [id number] General Surgery 10/13/21 Emilie Jauregui PA-C [address] [place] [address] Specialty Leather Piece Inspector Pulmonary and Critical Care Medicine 10/13/21 Ryan May MD [address] [place] [address] Specialty Leather Piece Inspector Vascular Surgery 10/13/21 Geronimo Medina DO [address] [address] Cheese Tester Cardiology 10/13/21 Tamika HARRELL [employer] System Installer 09/26/17 Rn Gastroenterology Relationship Specialty Start Date End Date Daija Morton MD [address] [place] [address] PCP - General Internal Medicine 03/21/17 13, Pharmacist [address] [place] [address] Pharmacist Pharmacy 06/17/21 Kaye Ortega MD [address] [place] [address] General Surgery 09/21/21 Ye Coello MD [address] [place], [place] [id number] General Surgery 10/13/21 Emilie Jauregui PA-C [address] [place] [address] Specialty Leather Piece Inspector Pulmonary and Critical Care Medicine 10/13/21 Ryan May MD [address] [place] [address] Specialty Leather Piece Inspector Vascular Surgery 10/13/21 Geronimo Medina, DO [address] [id number] Cheese Tester Cardiology 10/13/21 Tamika Almaguer [facility] Solar Energy System Installer 09/26/17 Rn Gastroenterology Relationship Specialty Start Date End Date Daija Morton MD [address] [place] [address] PCP - General Internal Medicine 03/21/17 13, Pharmacist [address] [place] [address] Pharmacist Pharmacy 06/17/21 Kaye Ortega MD [address] [place] [address] General Surgery 09/21/21 Ye Coello MD [address] [place], [place] [id number] General Surgery 10/13/21 Emilie Jauregui PA-C [address] [place] [address] Specialty Leather Piece Inspector Pulmonary and Critical Care Medicine 10/13/21 Ryan May MD [address] [place], [place] 4366195 Specialty Leather Piece Inspector Vascular Surgery 10/13/21 Geronimo Medina, DO [address] [address] Cheese Tester Cardiology 10/13/21 Tamika Almaguer [facility] Solar Energy System Installer 09/26/17 Rn Gastroenterology Relationship Specialty Start Date End Date Daija Morton MD [address] [place], [place] 014301 [phone] PCP - General Internal Medicine 03/21/17 13, Pharmacist [address]36 [place] [address] Pharmacist Pharmacy 06/17/21 Kaye Ortega MD [address] [place] [address] General Surgery 09/21/21 Ye Coello MD [address] [place] [address] General Surgery 10/13/21 Emilie Jauregui PA-C [address] [place] [address] Specialty Leather Piece Inspector Pulmonary and Critical Care Medicine 10/13/21 Ryan May MD [address] [place], [place] 1363095 Specialty Leather Piece Inspector Vascular Surgery 10/13/21 Geronimo Medina, DO [address] [address] Cheese Tester Cardiology 10/13/21 Tamika Almaguer [employer] System Installer 09/26/17 Rn Gastroenterology Relationship Specialty Start Date End Date Daija Morton MD [address] [place] [address] PCP - General Internal Medicine 03/21/17 13, Pharmacist [address] [place] [address] Pharmacist Pharmacy 06/17/21 Kaye Ortega MD [address] [place] [address] General Surgery 09/21/21 Ye Coello MD [address] [place], [place] [id number] General Surgery 10/13/21 Emilie Jauregui PA-C [address] [place] [address] Specialty Leather Piece Inspector Pulmonary and Critical Care Medicine 10/13/21 Ryan May MD [address] [place], [place] [phone] Specialty Leather Piece Inspector Vascular Surgery 10/13/21 Geronimo Medina, [address] [address] Cheese Tester Cardiology 10/13/21 Tamika Almaguer [employer] Installer 09/26/17 Rn Gastroenterology Relationship Specialty Start Date End Date Daija Morton MD [address] [place] [address] PCP - General Internal Medicine 03/21/17 13, Pharmacist [address] [place] [address] Pharmacist Pharmacy 06/17/21 Kaye Ortega MD [address] [place] [address] General Surgery 09/21/21 Ye Colelo MD [address] [place], [place] 385605 General Surgery 10/13/21 Emilie Jauregui PA-C [address] [place] [address] Specialty Leather Piece Inspector Pulmonary and Critical Care Medicine 10/13/21 Ryan May MD [address] [place] [address] Specialty Leather Piece Inspector Vascular Surgery 10/13/21 Geronimo Medina DO [address] [address] Cheese Tester Cardiology 10/13/21 Tamika Almaguer [facility] Solar Energy System Installer 09/26/17 Rn Gastroenterology Relationship Specialty Start Date End Date Daija Morton MD [address] [place] [address] PCP - General Internal Medicine 03/21/17 13, Pharmacist [address] [place] [address] Pharmacist Pharmacy 06/17/21 Kaye Ortega MD [address] [place] [address] General Surgery 09/21/21 Ye Coello MD [address] [place], [place] [id number] General Surgery 10/13/21 Emilie Jauregui PA-C [address] [place] [address] Specialty Leather Piece Inspector Pulmonary and Critical Care Medicine 10/13/21 Ryan May MD [address] [place] [address] Specialty Leather Piece Inspector Vascular Surgery 10/13/21 Geronimo Medina DO [address] [address] Cheese Tester Cardiology 10/13/21 Tamika Almaguer [employer] Installer 09/26/17 Rn Gastroenterology Relationship Specialty Start Date End Date Daija Morton MD [address] [place] [address] PCP - General Internal Medicine 03/21/17 13, Pharmacist [address] [place] [address] Pharmacist Pharmacy 06/17/21 Kaye Ortega MD [address] [place] [address] General Surgery 09/21/21 Ye Coello MD [address] [place] [address] General Surgery 10/13/21 Emilie Jauregui PA-C [address] [place] [address] Specialty Leather Piece Inspector Pulmonary and Critical Care Medicine 10/13/21 Ryan May MD [address] [place] [address] Specialty Leather Piece Inspector Vascular Surgery 10/13/21 Geronimo Medina DO [address] [address] Cheese Tester Cardiology 10/13/21 Tamika HARRELL [employer] Installer 09/26/17 Rn Gastroenterology Relationship Specialty Start Date End Date Daija Morton MD [address] [place] [address] PCP - General Internal Medicine 03/21/17 13, Pharmacist [address] [place] [address] Pharmacist Pharmacy 06/17/21 Kaye Ortega MD [address] [place] [address] General Surgery 09/21/21 Ye Coello MD [address] [place], [place] [id number] General Surgery 10/13/21 Emilie Jauregui PAAshtyn [address] [place] [address] Specialty Leather Piece Inspector Pulmonary and Critical Care Medicine 10/13/21 Ryan May MD [address] [place] [address] Specialty Leather Piece Inspector Vascular Surgery 10/13/21 Geronimo Medina DO [address] [id number] Cheese Tester Cardiology 10/13/21 Tamika Almaguer [facility] Solar Energy System Installer 09/26/17 Rn Gastroenterology Relationship Specialty Start Date End Date Daija Morton MD [address] [place], [place] [id number] [phone] PCP - General Internal Medicine 03/21/17 13, Pharmacist [address] [place] [address] Pharmacist Pharmacy 06/17/21 Kaye Ortega MD [address] [place] [phone] General Surgery 09/21/21 Ye Coello MD [address] [place], [place] [id number] General Surgery 10/13/21 Emilie Jauregui PA-C [address] [place] [address] Specialty Leather Piece Inspector Pulmonary and Critical Care Medicine 10/13/21 Ryan May MD [address] [place], [place] 4876395 Specialty Leather Piece Inspector Vascular Surgery 10/13/21 Geronimo Medina, [address] [address] Cheese Tester Cardiology 10/13/21 Tamika Minick Tripp [facility] Solar Energy System Installer 09/26/17 Rn Gastroenterology Relationship Specialty Start Date End Date Daija Morton MD [address] [place] [address] PCP - General Internal Medicine 03/21/17 13, Pharmacist [address] [place] [address] Pharmacist Pharmacy 06/17/21 04/12/22 Kaye Ortega MD [address] [place] [address] General Surgery 09/21/21 Ye Coello MD [address] [place] [address] General Surgery 10/13/21 Emilie Jauregui PA-C [address] [place] [address] Specialty Leather Piece Inspector Pulmonary and Critical Care Medicine 10/13/21 Ryan May MD [address] [place] [address] Specialty Leather Piece Inspector Vascular Surgery 10/13/21 Geronimo Medina DO [address] [address] Cheese Tester Cardiology 10/13/21 Tamika Almaguer [employer] 09/26/17 Team Status: Active Member Role Status [...] Provider Active Андрей Cooley Attending Provider Active Rn Gastroenterology Relationship Specialty Start Date End Date Daija Morton MD [address] [place] [address] PCP - General Internal Medicine 03/21/17 Kaye Ortega MD [address] [place] [address] General Surgery 09/21/21 Ye Coello MD [address] [place] [address] General Surgery 10/13/21 Emilie Jauregui PA-Edilma [address] [place], [place] 186631 Specialty Leather Piece Inspector Pulmonary and Critical Care Medicine 10/13/21 Ryan May MD [address] [place] [address] Specialty Leather Piece Inspector Vascular Surgery 10/13/21 Geronimo Medina DO [address] [address] Cheese Tester Cardiology 10/13/21 Tamika Almaguer [employer] Install[employer] 09/26/17 Rn Gastroenterology Relationship Specialty Start Date End Date Daija Morton MD [address] [place] [address] PCP - General Internal Medicine 03/21/17 Kaye Ortega MD [address] [place] [address] General Surgery 09/21/21 Ye Coello MD [address] [place], [place] 930595 [phone] General Surgery 10/13/21 Emilie Jauregui PA-C [address] [place] [address] Specialty Leather Piece Inspector Pulmonary and Critical Care Medicine 10/13/21 Ryan May MD [address] [place], [place] [phone] Specialty Leather Piece Inspector Vascular Surgery 10/13/21 Geronimo Medina, [address] [id number] Cheese Tester Cardiology 10/13/21 Tamika Almaguer [facility] Solar Energy System Installer 09/26/17 Rn Gastroenterology Relationship Specialty Start Date End Date Daija Morton MD [address] [place] [address] PCP - General Internal Medicine 03/21/17 Kaye Ortega MD [address] [place] [address] General Surgery 09/21/21 Ye Coello MD [address] [place], [place] [id number] General Surgery 10/13/21 Emilie Jauregui PA-C [address] [place] [address] Specialty Leather Piece Inspector Pulmonary and Critical Care Medicine 10/13/21 Ryan May MD [address] [place] [id number] Specialty Leather Piece Inspector Vascular Surgery 10/13/21 Geronimo Medina, DO [address] [address] Cheese Tester Cardiology 10/13/21 Tamika HARRELL Solar Energy System Installer 09/26/17 Rn Gastroenterology Relationship Specialty Start Date End Date Daija Morton MD [address] [place] [address] PCP - General Internal Medicine 03/21/17 Kaye Ortega MD [address] [place] [address] General Surgery 09/21/21 Ye Coello MD [address] [place], [place] 822545 General Surgery 10/13/21 Emilie Jauregui PA-C [address] [place] [address] Specialty Leather Piece Inspector Pulmonary and Critical Care Medicine 10/13/21 Ryan May MD [address] [place], [place] [id number] Specialty Leather Piece Inspector Vascular Surgery 10/13/21 Geronimo Medina DO [address] [address] Cheese Tester Cardiology 10/13/21 Tamika HARRELL Solar Energy System Installer 09/26/17 Rn Gastroenterology Relationship Specialty Start Date End Date Daija Morton MD [address] [place] [address] PCP - General Internal Medicine 03/21/17 Kaye Ortega MD [address] [place] [address] General Surgery 09/21/21 Ye Coello MD [address] [place] [address] General Surgery 10/13/21 Emilie Jauregui PA-C [address] [place] [address] Specialty Leather Piece Inspector Pulmonary and Critical Care Medicine 10/13/21 Ryan May MD [address] [place], [place] [id number] Specialty Leather Piece Inspector Vascular Surgery 10/13/21 Geronimo Medina, [address] [id number] Cheese Tester Cardiology 10/13/21 Tamika Almaguer [facility] Solar Energy System Installer 09/26/17 Rn Gastroenterology Relationship Specialty Start Date End Date Daija Morton MD [address] [place] [address] PCP - General Internal Medicine 03/21/17 Kaye Ortega MD [address] [place] [address] General Surgery 09/21/21 Ye Coello MD [address] [place], [place] 884578 [phone] General Surgery 10/13/21 Emilie Jauregui PA-C [address] [place] [address] Specialty Leather Piece Inspector Pulmonary and Critical Care Medicine 10/13/21 Ryan May MD [address] [place], [place] [phone] Specialty Leather Piece Inspector Vascular Surgery 10/13/21 Geronimo Medina DO [address] [address] Cheese Tester Cardiology 10/13/21 Tamika Almaguer [employer] Solar Energy System Installer 09/26/17 Rn Gastroenterology Relationship Specialty Start Date End Date Daija Morton MD [address] [place] [address] PCP - General Internal Medicine 03/21/17 Kaye Ortega MD [address] [place] [address] General Surgery 09/21/21 Ye Coello MD [address] [place], [place] 74678685 General Surgery 10/13/21 Emilie Jauregui PA-C [address] [facility] [place] [address] Specialty Leather Piece Inspector Pulmonary and Critical Care Medicine 10/13/21 Ryan May MD [address] [place] [address] Specialty Leather Piece Inspector Vascular Surgery 10/13/21 Geronimo Medina, DO [address] [address] Cheese Tester Cardiology 10/13/21 Tamika QUESADAPORT Solar Energy System Installer 09/26/17 Rn Gastroenterology Relationship Specialty Start Date End Date Daija Morton MD [address] [place] [address] PCP - General Internal Medicine 03/21/17 Kaye Ortega MD [address] [place] [address] General Surgery 09/21/21 Ye Coello MD [address] [place], [place] [id number] General Surgery 10/13/21 Emilie Jauregui PA-C [address] [place], [place] 059041 Specialty Leather Piece Inspector Pulmonary and Critical Care Medicine 10/13/21 Ryan May MD [address] [facility] [place] [address] Specialty Leather Piece Inspector Vascular Surgery 10/13/21 Geronimo Medina DO [address] [address] Cheese Tester Cardiology 10/13/21 Tamikadestiny Almaguer [facility] Solar Energy System Installer 09/26/17 Team Status: Inactive Member Role Status Dates Dr. Daija Morton MD Primary Care Provider Active Андрей RAIN Attending Provider Active Team Status: Inactive Member Role Status Dates Dr. Daija Morton MD Primary Care Provider Active Dr. Jaden Jauregui MD Emergency Provider Active Rn Gastroenterology Relationship Specialty Start Date End Date Daija Morton MD [address] [place], [place] 720681 PCP - General Internal Medicine 03/21/17 Kaye Ortega MD [address] [place] [address] General Surgery 09/21/21 Ye Coello MD [address] [place], [place] 417495 General Surgery 10/13/21 Emilie Jauregui PA-C [address] [place] [address] Specialty Leather Piece Inspector Pulmonary and Critical Care Medicine 10/13/21 Ryan May MD [address] [place] [address] Specialty Leather Piece Inspector Vascular Surgery 10/13/21 Geronimo Medina DO [address] [address] Cheese Tester Cardiology 10/13/21 Tamika HARRELL Solar Energy System Installer 09/26/17 Rn Gastroenterology Relationship Specialty Start Date End Date Daija Morton MD [address] [place], [place] 629831 PCP - General Internal Medicine 03/21/17 Kaye Ortega MD [address] [place] [address] General Surgery 09/21/21 Ye Coello MD [address] [place] [address] General Surgery 10/13/21 Emilie Jauregui PA-C [address] [place] [address] Specialty Leather Piece Inspector Pulmonary and Critical Care Medicine 10/13/21 Ryan May MD [address] [place] [address] Specialty Leather Piece Inspector Vascular Surgery 10/13/21 Geronimo Medina DO [address] [address] Cheese Tester Cardiology 10/13/21 Tamika HARRELL Solar Energy System Installer 09/26/17 Team Status: Inactive Member Role Status Dates Dr. Daija Morton MD Primary Care Provider Active Dr. Jaden Jauregui MD Attending Provider, Emergency Provider Active Team Status: Inactive Member Role Status Dates Dr. Daija Morton MD Primary Care Provider Active Dr. Huber Alvarado MD Emergency Provider Active Rn Gastroenterology Relationship Specialty Start Date End Date Daija Morton MD [address] [place] [address] PCP - General Internal Medicine 03/21/17 Kaye Ortega MD [address] [place] [address] General Surgery 09/21/21 Ye Coello MD [address] [place] [address] General Surgery 10/13/21 Emilie Jauregui PA-C [address] [place] [address] Specialty Leather Piece Inspector Pulmonary and Critical Care Medicine 10/13/21 Ryan May MD [address] [place] [address] Specialty Leather Piece Inspector Vascular Surgery 10/13/21 Geronimo Medina DO [address] [address] Cheese Tester Cardiology 10/13/21 Tamika Almaguer [facility] Solar Energy System Installer 09/26/17 Team Status: Inactive Member Role Status Dates Dr. Daija Morton MD Primary Care Provider Active Dr. Huber Alvarado MD Attending Provider, Emergency Provider Active Rn Gastroenterology Relationship Specialty Start Date End Date Daija Morton MD [address] [place] [address] PCP - General Internal Medicine 03/21/17 Kaye Ortega MD [address] [place] [address] General Surgery 09/21/21 Ye Coello MD [address] [place] [address] General Surgery 10/13/21 Emilie Jauregui PANeshaC [address] [place], [place] 899691 Specialty Leather Piece Inspector Pulmonary and Critical Care Medicine 10/13/21 Ryan May MD [address] [place] [address] Specialty Leather Piece Inspector Vascular Surgery 10/13/21 Geronimo Medina DO [address] [address] Cheese Tester Cardiology 10/13/21 Tamika Almaguer [facility] Solar Energy System Installer 09/26/17 Team Status: Active Member Role Status [...] MD Admit Provider, Attending Pro vider Active Rn Gastroenterology Relationship Specialty Start Date End Date Daija Morton MD [address] [place] [address] PCP - General Internal Medicine 03/21/17 Kaye Ortega MD [address] [place] [address] General Surgery 09/21/21 Ye Coello MD [address] [place] [address] General Surgery 10/13/21 Emilie Jauregui PA-C [address] [place] [address] Specialty Leather Piece Inspector Pulmonary and Critical Care Medicine 10/13/21 Ryan May MD [address] [facility] [place] [address] Specialty Leather Piece Inspector Vascular Surgery 10/13/21 Geronimo Medina DO [address] [address] Cheese Tester Cardiology 10/13/21 Tamikadestiny Almaguer [facility] Solar Energy System Installer 09/26/17 Team Status: Active Member Role Status [...] Dr. Elton Moore MD Other Provider Active Rn Gastroenterology Relationship Specialty Start Date End Date Daija Morton MD [address] [place] [address] PCP - General Internal Medicine 03/21/17 Kaye Ortega MD [address] [place] [address] General Surgery 09/21/21 Ye Coello MD [address] [place], [place] 644535 General Surgery 10/13/21 Emilie Jauregui PA-C [address] [place] [address] Specialty Leather Piece Inspector Pulmonary and Critical Care Medicine 10/13/21 Ryan May MD [address] [place] [address] Specialty Leather Piece Inspector Vascular Surgery 10/13/21 Geronimo Medina DO [address] [address] Cheese Tester Cardiology 10/13/21 Tamika HARRELL Solar Energy System Installer 09/26/17 Rn Gastroenterology Relationship Specialty Start Date End Date Daija Morton MD [address] [place] [address] PCP - General Internal Medicine 03/21/17 Kaye Ortega MD [address] [place] [address] General Surgery 09/21/21 Ye Coello MD [address] [place] [address] General Surgery 10/13/21 Emilie Jauregui PA-C [address] [place] [address] Specialty Leather Piece Inspector Pulmonary and Critical Care Medicine 10/13/21 Ryan May MD [address] [place] [address] Specialty Leather Piece Inspector Vascular Surgery 10/13/21 Geronimo Medina DO [address] [place] [address] Cheese Tester Cardiology 10/13/21 Tamika HARRELL Solar Energy System Installer 09/26/17 Rn Gastroenterology Relationship Specialty Start Date End Date Daija Morton MD [address] [place] [address] PCP - General Internal Medicine 03/21/17 Kaye Ortega MD [address] [place] [address] General Surgery 09/21/21 Ye Coello MD [address] [place] [address] General Surgery 10/13/21 Emilie Jauregui PA-C [address] [place] [address] Specialty Leather Piece Inspector Pulmonary and Critical Care Medicine 10/13/21 Ryan May MD [address] [place] [address] Specialty Leather Piece Inspector Vascular Surgery 10/13/21 Geronimo Medina DO [address] [place] [address] Cheese Tester Cardiology 10/13/21 Tamika Almaguer [facility] Solar Energy System Installer 09/26/17 Team Status: Inactive Member Role Status [...] Provi ashley, Attending Provider, Referring Provider Active Rn Gastroenterology Relationship Specialty Start Date End Date Daija Morotn MD [address] [place] [address] PCP - General Internal Medicine 03/21/17 Kaye Ortega MD [address] [place] [address] General Surgery 09/21/21 Ye Coello MD [address] [place] [address] General Surgery 10/13/21 Emilie Jauregui, PANeshaC [address] [place] [address] Specialty Leather Piece Inspector Pulmonary and Critical Care Medicine 10/13/21 Ryan May MD [address] [place] [address] Specialty Leather Piece Inspector Vascular Surgery 10/13/21 Geronimo Medina DO [address] [place] [address] Cheese Tester Cardiology 10/13/21 Tamika Almaguer [facility] Solar Energy System Installer 09/26/17 Team Status: Active Member Role Status [...] Dr. Ryan Guerin DO Attending Provider Active Rn Gastroenterology Relationship Specialty Start Date End Date Daija Morton MD [address] [place], [place] 557431 PCP - General Internal Medicine 03/21/17 Kaye Ortega MD [address] [place] [address] General Surgery 09/21/21 Ye Coello MD [address] [place], [place] 254935 General Surgery 10/13/21 Emilie Jauregui PA-C [address] [place] [address] Specialty Leather Piece Inspector Pulmonary and Critical Care Medicine 10/13/21 Ryan May MD [address] [place] [address] Specialty Leather Piece Inspector Vascular Surgery 10/13/21 Geronimo Medina DO [address] [place] [address] Cheese Tester Cardiology 10/13/21 Tamika Almaguer [facility] Solar Energy System Installer 09/26/17 Rn Gastroenterology Relationship Specialty Start Date End Date Daija Morton MD [address] [place] [address] PCP - General Internal Medicine 03/21/17 Kaye Ortega MD [address] [place] [address] General Surgery 09/21/21 Ye Coello MD [address] [place] [address] General Surgery 10/13/21 Emilie Jauregui PA-C [address] [place], [place] 123151 Specialty Leather Piece Inspector Pulmonary and Critical Care Medicine 10/13/21 Ryan May MD [address] [place] [address] Specialty Leather Piece Inspector Vascular Surgery 10/13/21 Geronimo Medina DO [address] [place] [address] Cheese Tester Cardiology 10/13/21 Tamika HARRELL Solar Energy System Installer 09/26/17 Rn Gastroenterology Relationship Specialty Start Date End Date Daija Morton MD [address] [place] [address] PCP - General Internal Medicine 03/21/17 Kaye Ortega MD [address] [place] [address] General Surgery 09/21/21 Ye Coello MD [address] [place], [place] 6456[address] General Surgery 10/13/21 Emilie Jauregui PA-C [address] [facility] [place] [place] [address] Specialty Leather Piece Inspector Pulmonary and Critical Care Medicine 10/13/21 Ryan May MD [address] [place] [address] Specialty Leather Piece Inspector Vascular Surgery 10/13/21 Geronimo Medina DO [address] [place] [address] Cheese Tester Cardiology 10/13/21 Tamika Almaguer [facility] Solar Energy System Installer 09/26/17 Rn Gastroenterology Relationship Specialty Start Date End Date Daija Morton MD [address] [place], [place] 495031 PCP - General Internal Medicine 03/21/17 Kaye Ortega MD [address] [place] [address] General Surgery 09/21/21 Ye Coello MD [address] [place] [address] General Surgery 10/13/21 Emilie Jauregui PA-C [address] [facility] [place] [address] Specialty Leather Piece Inspector Pulmonary and Critical Care Medicine 10/13/21 Ryan May MD [address] [place] [address] Specialty Leather Piece Inspector Vascular Surgery 10/13/21 Geronimo Medina DO [address] [place] [address] Cheese Tester Cardiology 10/13/21 Tamika HARRELL Solar Energy System Installer 09/26/17 Rn Gastroenterology Relationship Specialty Start Date End Date Daija Morton MD [address] [place] [address] PCP - General Internal Medicine 03/21/17 Kaye Ortega MD [address] [place] [address] General Surgery 09/21/21 Ye Coello MD [address] [place] [address] General Surgery 10/13/21 Emilie Jauregui PA-C [address] [place] [address] Specialty Leather Piece Inspector Pulmonary and Critical Care Medicine 10/13/21 Ryan May MD [address] [place] [address] Specialty Leather Piece Inspector Vascular Surgery 10/13/21 Geronimo Medina DO [address] [place] [address] Cheese Tester Cardiology 10/13/21 Tamika HARRELL Solar Energy System Installer 09/26/17 Rn Gastroenterology Relationship Specialty Start Date End Date Daija Morton MD [address] [place] [address] PCP - General Internal Medicine 03/21/17 Kaye Ortega MD [address] [place] [address] General Surgery 09/21/21 Ye Coello MD [address] [place] [address] General Surgery 10/13/21 Emilie Jauregui PA-C [address] [place] [address] Specialty Leather Piece Inspector Pulmonary and Critical Care Medicine 10/13/21 Ryan May MD [address] [place] [address] Specialty Leather Piece Inspector Vascular Surgery 10/13/21 Geronimo Medina DO [address] [place] [address] Cheese Tester Cardiology 10/13/21 Tamika Almaguer [facility] Solar Energy System Installer 09/26/17 Rn Gastroenterology Relationship Specialty Start Date End Date Daija Morton MD [address] [place] [address] PCP - General Internal Medicine 03/21/17 Kaye Ortega MD [address] [place] [address] General Surgery 09/21/21 Ye Coello MD [address] [place] [address] General Surgery 10/13/21 Emilie Jauregui PA-C [address] [place], [place] 939701 Specialty Leather Piece Inspector Pulmonary and Critical Care Medicine 10/13/21 Ryan May MD [address] [place] [address] Specialty Leather Piece Inspector Vascular Surgery 10/13/21 Geronimo Medina DO [address] [place] [address] Cheese Tester Cardiology 10/13/21 Tamika Almaguer [facility] Solar Energy System Installer 09/26/17 Rn Gastroenterology Relationship Specialty Start Date End Date Daija Morton MD [address] [place] [address] PCP - General Internal Medicine 03/21/17 Kyae Ortega MD [address] [facility] [place] [address] General Surgery 09/21/21 Ye Coello MD [address] [place] [address] General Surgery 10/13/21 Emilie Jaureugi PA-C [address] [facility] [place] [address] Specialty Leather Piece Inspector Pulmonary and Critical Care Medicine 10/13/21 Ryan May MD [address] [place] [address] Specialty Leather Piece Inspector Vascular Surgery 10/13/21 Geronimo Medina DO [address] [place] [address] Cheese Tester Cardiology 10/13/21 Tamika HARRELL Solar Energy System Installer 09/26/17 Rn Gastroenterology Relationship Specialty Start Date End Date Daija Morton MD [address] [place], [place] 886281 PCP - General Internal Medicine 03/21/17 Kaye Ortega MD [address] [place] [address] General Surgery 09/21/21 Ye Coello MD [address] [place], [place] 412405 General Surgery 10/13/21 Emilie Jauregui PANeshaC [address] [place] [address] Specialty Leather Piece Inspector Pulmonary and Critical Care Medicine 10/13/21 Ryan May MD [address] [place] [address] Specialty Leather Piece Inspector Vascular Surgery 10/13/21 Geronimo Medina DO [address] [place] [address] Cheese Tester Cardiology 10/13/21 Tamika HARRELL Solar Energy System Installer 09/26/17 Rn Gastroenterology Relationship Specialty Start Date End Date Daija Morton MD [address] [place] [address] PCP - General Internal Medicine 03/21/17 Beatriz Correa PATIENT CARE ASSOCIATE [address] [facility] [address] Referring 09/28/20 10/12/21 Daija Morton MD [address] [place] [address] Home Care Provider Internal Medicine 09/28/20 10/12/21 Fco Franklin, SEYMOUR [address] [place] [address] Motor And Chassis Inspector 10/08/20 12/21/20 Tamika Almaguer [facility] Solar Energy System Installer 09/26/17 Rn Gastroenterology Relationship Specialty Start Date End Date Daija Morton MD [address] [place], [place] 747661 PCP - General Internal Medicine 03/21/17 Kaye Ortega MD [address] [place] [address] General Surgery 09/21/21 eY Coello MD [address] [place] [address] General Surgery 10/13/21 Emilie Jauregui PA-C [address] [place] [address] Specialty Leather Piece Inspector Pulmonary and Critical Care Medicine 10/13/21 Ryan May MD [address] [place] [address] Specialty Leather Piece Inspector Vascular Surgery 10/13/21 Geronimo Medina DO [address] [place] [address] Cheese Tester Cardiology 10/13/21 Tamika HARRELL Solar Energy System Installer 09/26/17 Rn Gastroenterology Relationship Specialty Start Date End Date Daija Morton MD [address] [place], [place] 658451 PCP - General Internal Medicine 03/21/17 Kaye Ortega MD [address] [place] [address] General Surgery 09/21/21 Ye Coello MD [address] [place] [address] General Surgery 10/13/21 Emilie Jauregui PA-C [address] [place] [address] Specialty Leather Piece Inspector Pulmonary and Critical Care Medicine 10/13/21 Ryan May MD [address] [place] [address] Specialty Leather Piece Inspector Vascular Surgery 10/13/21 Geronimo Medina DO [address] [place] [address] Cheese Tester Cardiology 10/13/21 Tamika Almaguer [employer] Solar Energy System Installer 09/26/17 Rn Gastroenterology Relationship Specialty Start Date End Date Daija Morton MD [address] [place], [place] 748011 PCP - General Internal Medicine 03/21/17 Kaye Ortega MD [address] [place] [address] General Surgery 09/21/21 Ye Coello MD [address] [place], [place] 700[address] General Surgery 10/13/21 Emilie Jauregui PA-C [address] [facility] [place] [place] [address] [phone] Specialty Leather Piece Inspector Pulmonary and Critical Care Medicine 10/13/21 Ryan May MD [address] [place] [address] Specialty Leather Piece Inspector Vascular Surgery 10/13/21 Geronimo Medina DO [address] [place] [address] Cheese Tester Cardiology 10/13/21 Tamika Almaguer [facility] Solar Energy System Installer 09/26/17 Rn Gastroenterology Relationship Specialty Start Date End Date Daija Morton MD [address] [place], [place] 375761 PCP - General Internal Medicine 03/21/17 Kaye Ortega MD [address] [facility] [place] [address] General Surgery 09/21/21 Ye Coello MD [address] [place] [address] General Surgery 10/13/21 Emilie Jauregui PA-C [address] [facility] [place] [address] [phone] Specialty Leather Piece Inspector Pulmonary and Critical Care Medicine 10/13/21 Ryan May MD [address] [place] [address] Specialty Leather Piece Inspector Vascular Surgery 10/13/21 Geronimo Medina DO [address] [place] [address] Cheese Tester Cardiology 10/13/21 Tamika Canales [facility] Solar Energy System Installer 09/26/17 Team Status: Active Member Role Status [...] Start : August 27, 2024 Dr. Celia Toriboi MD Attending Provider Active Start: August 27, [...] 2024 End: September 02, 2024 Dr. Celia Toriboi MD Other Provider Active Star t: August [...] November 05, 2024 End: November 05, 2024 Rn Gastroenterology Relationship Specialty Start Date End Date Daija Morton MD [address] [place], [place] 451221 PCP - General Internal Medicine 03/21/17 Kaye Ortega MD [address] [facility] [place] [address] General Surgery 09/21/21 Ye Coello MD [address] [place] [address] General Surgery 10/13/21 Emilie Jauregui, PA-C [address] [place], [place] 913321 Specialty Leather Piece Inspector Pulmonary and Critical Care Medicine 10/13/21 Ryan May MD [address] [place], [place] 5835695 Specialty Leather Piece Inspector Vascular Surgery 10/13/21 Geronimo Medina DO [address] [place] [address] Cheese Tester Cardiology 10/13/21 Anjel Braga APRN.PATIENT CARE ASSOCIATE [address] [place], [place] 596651 Ground Systems Engineer Internal Medicine 05/26/24 Tamika Canales [facility] Solar Energy System Installer 09/26/17 Rn Gastroenterology Relationship Specialty Start Date End Date Daija Morton MD [address] [place], [place] 195221 PCP - General Internal Medicine 03/21/17 Kaye Ortega MD [address] [place] [address] General Surgery 09/21/21 Ye Coello MD [address] [place], [place] 563695 General Surgery 10/13/21 Emilie Jauregui PA-C [address] [place], [place] 76449691 Specialty Leather Piece Inspector Pulmonary and Critical Care Medicine 10/13/21 Ryan May MD [address] [place], [place] 7374695 Specialty Leather Piece Inspector Vascular Surgery 10/13/21 Geronimo Medina DO [address] [place] [address] Cheese Tester Cardiology 10/13/21 Anjel Braga APRN.PATIENT CARE ASSOCIATE [address] [place], [place] 884211 Ground Systems Engineer Internal Medicine 05/26/24 Tamika Almaguer [facility] Solar Energy System Installer 09/26/17 Rn Gastroenterology Relationship Specialty Start Date End Date Daija Morton MD [address] [place], [place] 094381 PCP - General Internal Medicine 03/21/17 Kaye Ortega MD [address] [place] [address] General Surgery 09/21/21 Ye Coello MD [address] [place], [place] 4088[address] General Surgery 10/13/21 Emilie Jauregui, PA-C [address] [place], [place] 019471 Specialty Leather Piece Inspector Pulmonary and Critical Care Medicine 10/13/21 Ryan May MD [address] [place] [address] Specialty Leather Piece Inspector Vascular Surgery 10/13/21 Geronimo Medina DO [address] [place] [address] Cheese Tester Cardiology 10/13/21 Anjel Braga APRN.PATIENT CARE ASSOCIATE [address] [place] [address] Ground Systems Engineer Internal Medicine 05/26/24 Tamika Almaguer [employer] Solar Energy System Installer 09/26/17 Rn Gastroenterology Relationship Specialty Start Date End Date Daija Morton MD [address] [place], [place] 498841 PCP - General Internal Medicine 03/21/17 Kaye Ortega MD [address] [place] [address] General Surgery 09/21/21 Ye Coello MD [address] [place], [place] 743375 General Surgery 10/13/21 Emilie Jauregui PA-C [address] [place], [place] 120101 Specialty Leather Piece Inspector Pulmonary and Critical Care Medicine 10/13/21 Ryan May MD [address] [place] [address] Specialty Leather Piece Inspector Vascular Surgery 10/13/21 Geronimo Medina DO [address] [place] [address] Cheese Tester Cardiology 10/13/21 Anjel Braga APRN.PATIENT CARE ASSOCIATE [address] [place] [address] Ground Systems Engineer Internal Medicine 05/26/24 Tamika Almaguer [employer] Solar Energy System Installer 09/26/17 Rn Gastroenterology Relationship Specialty Start Date End Date Daija Morton MD [address] [place] [address] PCP - General Internal Medicine 03/21/17 Kaye Ortega MD [address] [place] [address] General Surgery 09/21/21 Ye Coello MD [address] [place] [address] General Surgery 10/13/21 Emilie Jauregui PA-C [address] [place], [place] [id number] Specialty Leather Piece Inspector Pulmonary and Critical Care Medicine 10/13/21 Ryan May MD [address] [place] [address] Specialty Leather Piece Inspector Vascular Surgery 10/13/21 Geronimo Medina DO [address] [place] [address] Cheese Tester Cardiology 10/13/21 Anjel Braga APRN.PATIENT CARE ASSOCIATE [address] [place] [address] Ground Systems Engineer Internal Medicine 05/26/24 Tamika Almaguer [facility] Solar Energy System Installer 09/26/17 Rn Gastroenterology Relationship Specialty Start Date End Date Daija Morton MD [address] [place] [address] PCP - General Internal Medicine 03/21/17 Kaye Ortega MD [address] [place] [id number] General Surgery 09/21/21 Ye Coello MD [address] [place] [address] General Surgery 10/13/21 Emilie Jauregui PA-C [address] [place], [place] [id number] Specialty Leather Piece Inspector Pulmonary and Critical Care Medicine 10/13/21 Ryan May MD [address] [facility] [place] [place] [address] Specialty Leather Piece Inspector Vascular Surgery 10/13/21 Geronimo Medina DO [address] [place] [address] Cheese Tester Cardiology 10/13/21 Anjel Braga APRN.PATIENT CARE ASSOCIATE [address] [place], [place] [id number] Ground Systems Engineer Internal Medicine 05/26/24 Tamika Almaguer [facility] Solar Energy System Installer 09/26/17 Team Status: Active Member Role/Relationship Status [...] Provider Active Start : December 16, 2024 Rn Gastroenterology Relationship Specialty Start Date End Date Daija Morton MD [address] [place], [place] [address] PCP - General Internal Medicine 03/21/17 Kaye Ortega MD [address] [place] [phone] General Surgery 09/21/21 Ye Coello MD [address] [place], [place] [address] General Surgery 10/13/21 Emilie Jauregui PA-C [address] [place], [place] [address] Specialty Leather Piece Inspector Pulmonary and Critical Care Medicine 10/13/21 Ryan May MD [address] [place] [address] Specialty Leather Piece Inspector Vascular Surgery 10/13/21 Geronimo Medina DO [address] [place] [address] Cheese Tester Cardiology 10/13/21 Anjel Braga APRN.PATIENT CARE ASSOCIATE [address] [place], [place] [id number] Ground Systems Engineer Internal Medicine 05/26/24 Tamika Almaguer [employer] Solar Energy System Installer 09/26/17 Rn Gastroenterology Relationship Specialty Start Date End Date Daija Morton MD [address] [place] [address] PCP - General Internal Medicine 03/21/17 Kaye Ortega MD [address] [place] [phone] General Surgery 09/21/21 eY Coello MD [address] [place] [address] General Surgery 10/13/21 Emilie Jauregui, PANeshaC [address] [place], [place] [address] Specialty Leather Piece Inspector Pulmonary and Critical Care Medicine 10/13/21 Ryan May MD [address] [place] [address] Specialty Leather Piece Inspector Vascular Surgery 10/13/21 Geronimo Medina DO [address] [place] [address] Cheese Tester Cardiology 10/13/21 Anjel Braga APRN.PATIENT CARE ASSOCIATE [address] [place] [address] [facility] Internal Medicine 05/26/24 Tamika Ally [place] Solar Energy System Installer 09/26/17 Team Status: Active Member Role/Relationship Status Dates Dr. Daija Morton MD Primary Care Provider Active Start: December 17, 2024 Dr. Seth Pritchard DO Emergency Provider Active Start: December 17, 2024 Dr. Roman Patel DO Admit Provider Active Start: December 17, 2024 Dr. Roman Patel DO Attending Provider Active Start: December 17, 2024 Rn Gastroenterology Relationship Specialty Start Date End Date Daija Morton MD [address] [place] [address] PCP - General Internal Medicine 03/21/17 Kaye Ortega MD [address] [place] [address] General Surgery 09/21/21 Ye Coello MD [address] [place], [place] [address] General Surgery 10/13/21 Emilie Jauregui PANeshaC [address] [place], [place] [address] Specialty Leather Piece Inspector Pulmonary and Critical Care Medicine 10/13/21 Ryan May MD [address] [place] [address] Specialty Leather Piece Inspector Vascular Surgery 10/13/21 Geronimo Medina DO [address] [place] [address] Cheese Tester Cardiology 10/13/21 Anjel Braga APRN.PATIENT CARE ASSOCIATE [address] [place], [place] [address] Ground Systems Engineer Internal Medicine 05/26/24 Tamika [place] Solar Energy System Installer 09/26/17 Team Status: Inactive Member Role/Relationship Status [...] Provider Active Start: December 19, 2024 Dr. Seht Pritchard , DO Emergency Provider Active Start: [...] Provider Active Start: December 22, 2024 Dr. Nmoan Dumont MD Other Provider Active Start : [...] Sta rt: December 22, 2024 Dr. Fanny Rese MD Other Provider Active Start: December 22, [...] Provider Active Start: December 23, 2024 Dr. uHber Ewing MD Other Provider Active St art: [...] Provider Active Start: December 23, 2024 Dr. Shlipa Contreras MD Attending Provider [...] Active St art: December 23, 2024 Dr. oGgo Gill MD Other Provider Active Start: December [...] Provider Active Start : December 26, 2024 Rn Gastroenterology Relationship Specialty Start Date End Date Daija Morton MD [address] [place], [place] [id number] PCP - General Internal Medicine 03/21/17 Kaye Ortega MD [address] [place] [phone] General Surgery 09/21/21 Ye Coello MD [address] [place] [address] General Surgery 10/13/21 Emilie Jauregui, PA-C [address] [place] [address] Specialty Leather Piece Inspector Pulmonary and Critical Care Medicine 10/13/21 Ryan May MD [address] [place] [address] Specialty Leather Piece Inspector Vascular Surgery 10/13/21 Geronimo Medina DO [address] [place] [address] Cheese Tester Cardiology 10/13/21 Anjel Braga APRN.PATIENT CARE ASSOCIATE [address] [place], [place] [address] Ground Systems Engineer Internal Medicine 05/26/24 Tamika Almaguer [facility] Solar Energy System Installer 09/26/17 Team Status: Active Member Role/Relationship Status [...] Active Start: December 21, 2024 Dr. Lisha Talamnates DO Attending Provider Active S tart: December [...] Active Start : December 22, 2024 Dr. Rayn Vargas MD Other Provider Active Sta rt: [...] Provider Active S tart: January 08, 2025 Rn Gastroenterology Relationship Specialty Start Date End Date Daija Morton MD [address] [place] [address] PCP - General Internal Medicine 03/21/17 Kaye Ortega MD [address] [place] [address] General Surgery 09/21/21 Ye Coello MD [address] [place] [address] General Surgery 10/13/21 Emilie Jauregui, PA-C [address] [place], [place] [address] Specialty Leather Piece Inspector Pulmonary and Critical Care Medicine 10/13/21 Ryan May MD [address] [place] [address] Specialty Leather Piece Inspector Vascular Surgery 10/13/21 Geronimo Medina DO [address] [place] [address] Cheese Tester Cardiology 10/13/21 Anjel Braga APRN.PATIENT CARE ASSOCIATE [address] [place], [place] [address] Ground Systems Engineer Internal Medicine 05/26/24 Tamika Almaguer [facility] Solar Energy System Installer 09/26/17 Team Status: Active Member Role/Relationship Status [...] S tart: December 23, 2024 Dr. Lisha Talamnates DO Other Provider Active Start : December [...] Star t: January 05, 2025 Dr. Frankie aGlindo MD Referring Provider Active Start: January 05, 2025 Dr. Frankie Galindo MD Other Provider Active Star t: January 05, 2025 Dr. Paulino Henderson DO Attending Provider Active Start: January 05, 2025 Team Status: Inactive Member Role/Relationship Status Dates Dr. Lorraine Mena MD Primary Care Provider Active Start: January 09, 2025 End: January 09, 2025 Josefa Doss NP, RELEASE MANAGER-C Attending Provider Active Start: January 09, 2025 [...] 2025 End: January 09, 2025 Josefa Doss RELEASE MANAGER, RELEASE MANAGER-C Attending Provider Active Start: January 09, 2025 [...] 2025 End: January 23, 2025 Hannah Busch RELEASE MANAGER-C Attending Provider Active S tart: January 23, [...] End: December 27, 2024 Josefa Doss NP RELEASE MANAGER-C Attending Provider Active Start: December 27, 2024 [...] Inactive Member Role/Relationship Status Dates Dr. Lorraine eMna MD Primary Care Provider Active Start: December [...] 2025 End: January 09, 2025 Josefa Doss RELEASE MANAGER, RELEASE MANAGER-C Attending Provider Active Start: January 09, 2025 [...] 2024 End: December 27, 2024 Josefa Doss RELEASE MANAGER, RELEASE MANAGER-C Attending Provider Active Start: December 27, 2024 [...] 2025 End: February 04, 2025 Josefa Doss RELEASE MANAGER, RELEASE MANAGER-C Attending Provider Active Start: February 04, 2025 [...] BE BASED ON THE PRIMARY CLINICAL RECORDS. [facility]. provides no warranty or guarantee of the accuracy or completeness of information in this document.
--- OUTSIDE RECORDS SUMMARY | 2025-05-03 21:18 | XMS RPT_ITS | CCD ---
Author Organization [facility] Care Team Providers Care Construction Scheduler Name Role Phone Selene RANDALL, Daija Primary Care Provider Madeline SPECIALIST ICU, Beatriz Unavailable Unavailab johnson Morton MD, Daija [...] Provider Dr. Elton Moore Other Provider [phone] Raul Melchor Emergency Provider Dr. Андрей [...] Dr. 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 Vizcaino Emergency [...] Jasper RANDALL, Dr. Lara Other Provider Tim RANDALL, [...] Other Provider Saul RANDALL, Jo Other Provider [phone] CELIA RANDALL, JOSETTE Other Provider Inez RANDALL, Angelo Other Provider [phone] Tanesha RANDALL, Neelam Other Provider Mikey [...] Mateo RANDALL, Referring Provider Unavaila deandre Doss RN UNIT MANAGER-C, Josefa Attending Provider Trina RANDALL, Dr. Peters Primary Care Provider Trina RANDALL, Dr. Peters Attending Provider Trina RANDALL, Dr. Peters Primary Care Provider Romario RN UNIT MANAGER-C, Josefa Attending Provider Selene RANDALL, Dr. Choe Primary Care Provider Rosa Maria RANDALL, Dr. Aguirre Attending Provider Unavaila deandre Guerin DO, Dr. Davis Referring Provider ROSA MARIA RANDALL, DR CARLA Damon Primary Care Physician MAGDALENE POWELL DO Attending Unavailable ROSA MARIA RANDALL, DR CARLA Damon Primary Care Unavailabl Lisha Uriarte Admitting Unavailable Ganta, Daija Primary Care Unavailable Albin Lisha Consulting Unavailable Celia Toribio Attending Unavailable Elton Moore Consulting Unavailable Celia Toribio Consulting Unavailable Hannah Busch Attending Unavailable [facility] Unavailable [facility], Daija Referring Unavailable Josefa Doss NP Attending Unavailable [facility] Unavailable Lisha Talamantes Attending Unavailable [facility] Unavailable White, Shilpa L Admitting Unavailable White, Shilpa L Consulting Unavailable Albin, Lisha Consulting Unavailable Yaya Talamantesyn Attending Unavailable [facility], Daija Primary Care Unavailable White, Shilpa L Admitting Unavailable White, Shilpa L Consulting Unavailable Albin, Lisha Admitting Unavailable Albin Lisha Consulting Unavailable Celia Toribio Attending Unavailable [facility] Primary Care Unavailable Celia Toribio Consulting [...] Care Unavailable Frankie Galindo Consulting Unavailable Frankie Galidno Admitting Unavailable yRan Guerin Consulting Unavailable Paulino Henderson Attending Unavailable Frankie Galindo Referring Unavailable Ganta, Daija Primary Care Unavailable White, Shilpa L Attending Unavailable White, Shilpa L Admitting Unavailable White, Shilpa L Consulting Unavailable Oleghe, Efewongbe Primary Care Unavailable Tickton RN UNIT MANAGER, Josefa Attending Unavailable Tickton RN UNIT MANAGER, Josefa Attending Unavailable Olee, Efewongbe Primary Care Unavailable Olee, Efewongbe Primary Care Unavailable Olee, Efewongbe Attending Unavailable Lisha Talamantes Attending Unavailable Cologne, Ricardo Consulting Unavailable Hinduja, Amy Consulting Unavailable [...] Consulting Unavailable Lisha Talamantes Referring Unavailable Tickton RN UNIT MANAGER, Josefa Attending Unavailable [facility], [facility] Primary Care Unavailable Olee, Efewongbe Referring Unavailable [facility] Unavailable Mackenzie Dangelo Attending Unavailable Tickton RN UNIT MANAGER, Josefa Attending Unavailable [facility], [facility] Primary Care Unavailable Florencioton RN UNIT MANAGER, Josefa Attending [facility]available [facility] Primary Care Unavailable Roman Patel Consulting Unavailable Jorge Roman Admitting Unavailable Roman Patel Attending Unavailable [facility] Primary Care Unavailable Ricardo Mccullough Consulting Unavailable Lisha Talamantes Attending Unavailable [facility] Primary Care Unavailable Jorge Roman Admitting Unavailable [...] Start: 08-22-2023 End: 12-24-2024 168 hr cloNIDine 0.30851 mg/ hr transdermal system (20 sources) Central [...] Comment on above: Take 1 capsule by [facility] once daily. traMADol hydrochloride 50 mg [...] unspecified emphysema type (HCC) Aerosol supplies Dx:J44.1 NPI#[id number] 1 Each 2 04/11/2018 02/02/2022 Discontinued (Duplicate Entry) Start: 04-11-2018 End: 02-02-2022 COMPOUNDED PRESCRIPTION Tamela cations: Pulmonary emphysema, unspecified emphysema type (HCC) NEBULIZER FOR HOME USE. DX: Emphysema, COPD 1 Each 3 04/11/2018 02/02/2022 Discontinued (Duplicate Entry) Start: 04-11-2018 COMPOUNDED PRE SCRIPTION Indications: Pulmonary emphysema, unspecified emphysema type (HCC) Aerosol supplies Dx:J44.1 NPI#[id number] 1 Each 2 04/11/2018 Active Start: 04-11-2018 COMPOUNDED PRE SCRIPTION Indications: Pulmonary emphysema, unspecified emphysema type (HCC) NEBULIZER FOR HOME USE. DX: Emphysema, COPD 1 Each 3 04/11/2018 Active Comment on above: Aerosol supplies Dx: J44.1 NPI#[id number] NEBULIZER FOR HOME U SE. DX: Emphysema, COPD 12 hr dextromethorphan hydrobromide 60 mg / guaiFENesin 1200 mg extended release oral tablet (20 sources) Uncompetitive W-nnmsno-Z-aspartate Receptor Antagonist, Sigma-1 Agonist Start: 09-02-2024 End: [...] Compression fracture of L2 vertebra, initial encounter ([facility]) Take 1 capsule by mouth once [...] on above: Take 1 capsule by mo [facility] once daily as needed for Constipation. Take with pain medication docusate sodium 50 mg / sennosides, intermediate 8.6 mg oral tablet (20 sources) Start: [...] Corticosteroid, beta2-Adrenergic Agonist Start: 03-24-2020 End: 04-05-2021 ydkgtutaqyn-uhzpddfml-iu lanter (TRELEGY ELLIPTA) 100-62.5-25 mcg [The details [...] on above: Take 1 capsule by mo [facility] once daily. 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 Take 1 tablet [...] End: 12-07-2015 Start: 12-02-2015 End: 12-07-2015 Tiotropium [place] (Spiriva 18 Mcg) 1 PUFF inhaler Discontinued 1 NMA INHALATION DAILY December 02, 2015 12:00am December 07, 2015 10:02am Start: 12-02-2015 End: 12-07-2015 Start: 12-02-2015 End: 12-07-2015 take 1 puff(s) by inhalation once daily Tiotropium [place] (Spiriva 18 Mcg) 1 PUFF inhaler Discontinued 1 PUFF INHALATION DAILY December 01, 2015 11:00pm December 07, 2015 9:02am Start: 01-26-2014 End: 09-29-2015 Start: 01-26-2014 End: 09-29-2015 take 1 puff(s) by inhalation once daily Tiotropium [place] (Spiriva With Handihaler) 1 PUFF inhaler Discontinued 1 NMA INHALATION DAILY January 26, 2014 12:00am September 29, 2015 1:10pm Start: 01-26-2014 End: 09-29-2015 Start: 01-26-2014 End: 09-29-2015 take 1 puff(s) by inhalation once daily Tiotropium [place] (Spiriva With Handihaler) 1 PUFF inhaler Discontinued [...] ing 09/13/2021 Take 2 tablets by mo [facility] once daily. As dosed based on [...] Coronary arteriosclerosis; Translations: [Atherosclerotic heart disease of shawnee coronary artery without angina pectoris] Onset: 3 [...] sources) Long-term current use of anticoagulant; Translations: [penitentiary (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 of anticoagulants] 02-09-2019 Episodic Comment on above: On warfarin Other aftercare (1 source) Prescribed medication regimen behavior finding; Translations: [penitentiary (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 of opiate analgesic] Episodic Other aftercare (20 sources) Drug therapy status; Translations: [penitentiary (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 of anticoagulants] 08-18-2021 Episodic Other aftercare (20 sources) technician terminal and repeater (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 of anticoagulants; Translations: [Long-term (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 of anticoagulants] Episodic Other aftercare (20 sources) Drug therapy finding; Translations: [technician terminal and repeater (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 of opiate analgesic] 02-09-2019 Episodic [...] 12-17-2019 Episodic Other aftercare (1 source) Other manager intermediate (current) drug therapy; Translations: [Other manager intermediate (current) drug therapy] Onset: 12-24-2024 Episodic Other [...] FAQ page (http://www.e-imo.co m/faq/vocabportal_fa q.aspx) or contact [facility] Customer Support at [email or web address] 03-20-2013 Results Test Name Value Interpretation Reference [...] 4:14:48 AM Ordering Provider: MAGDALENE POWELL RP [facility] CT MAXILLOFACIAL W/O CONTRAS Ton 03-18-2025 [...] 4:22:40 AM Ordering Provider: MAGDALENE POWELL RP [facility] CT SPINE CERVICAL W/O CONTRA STon [...] AM Ordering Provider: MAGDALENE POWELL RP Normal [facility] Absolute lymphocyte countOrd ered By: Lorraine Mena on 02-18-2025 Lymphocytes Auto (Unsp spec) [#/Vol] 0.91 10*3/uL 0.83-4.51 [facility] Anion gap in Serum or Plasma Ordered By: Lorraine Mena on 02-18-2025 Anion gap [Moles/Vol] 12 mmol/L 5-15 [facility] Automated lymphocyte count a s percentage of total leukocytesOrdered By: Lorraine Mena on 02-18-2025 Lymphocytes/100 WBC Auto (Unsp spec) 9.9 % Low 19-41 [facility] BUN/creatinine ratioOrdered By: Lorraine Mena on 02-18-2025 Urea nitrogen/Creatinine [Mass ratio] 16.0 mg/mg 10-20 [facility] Basophil percentageOrdered B y: Lorraine Mena on 02-18-2025 Basophils/100 WBC (Bld) 0.5 % 0-1 [facility] Calculated very low density lipoprotein (VLDL) cholesterol measurementOrdered By: Lorraine Mena on 02-18-2025 Calculated very low density lipoprotein (VLDL) cholesterol measurement 17 mg/dL 5-40 [facility] Carbon dioxide, total [Moles /volume] in Central venous bloodOrdered By: ml Mena on 02-18-2025 CO2 [Moles/Vol] 26.0 mmol/L 21.0-32.0 [facility] Chloride assayOrdered By: Ledy Mena on 02-18-2025 Chloride [Moles/Vol] 99 mmol/L 98-108 [facility] Eosinophil percentageOrdered By: Lorraine Mena on 02-18-2025 Eosinophils/100 WBC (Bld) 0.4 % 0-5 [facility] Erythrocyte distribution wid th ratioOrdered By: [facility] Newnanthao Mena on 02-18-2025 Erythrocyte distribution width (RBC) [Ratio] 16.4 % High 11.6-14.6 [facility] Erythrocyte distribution wid th standard deviationOrdered By: Roselyncolumbianathao Mena on 02-18-2025 Erythrocyte distribution width (RBC) [Ratio] 51.2 fl High 35.1-43.9 [facility] Glomerular filtration rate ( GFR) estimation/1.73 sq m using serum, plasma, or whole bOrdered By: Lorraine Mena on 02-18-2025 GFR/1.73 sq M.predicted among non-blacks MDRD (S/P/Bld) [Vol rate/Area] 66 mL/min/{1.73_m2} >60 [facility] Hematocrit Auto (Bld) [Volum e fraction]Ordered By: Lorraine Mena on 02-18-2025 Hematocrit (Bld) [Volume fraction] 32.2 % Low 40-54 [facility] Hemoglobin measurementOrdere d By: Lorraine Mena on 02-18-2025 Hemoglobin (Bld) [Mass/Vol] 9.9 g/dL Low 13.0-16.5 [facility] Immature granulocytes/100 WB C Auto (Bld)Ordered By: Lorraine Mena on 02-18-2025 Immature granulocytes/100 WBC (Bld) 0.500 % 0.0-0.9 [facility] LDL calc ser/plasOrdered By: Ledyroelorri Mena on 02-18-2025 Cholesterol in LDL [Mass/Vol] 61 mg/dL [facility] MCV (mean corpuscular volume ) determinationOrdered By: ml Almonteemi on 02-18-2025 MCV (RBC) [Entitic vol] 85.6 fL 80-94 [facility] Mean corpuscular hemoglobin (MCH) determinationOrdered By: Lorraine Mena on 02-18-2025 MCH (RBC) [Entitic mass] 26.3 pg Low 27.0-32.0 [facility] Monocyte percentageOrdered B y: Lorraine Almonteemi on 02-18-2025 Monocytes/100 WBC (Bld) 5.9 % 0-10 [facility] Neutrophil percentageOrdered By: ml Mena on 02-18-2025 Neutrophils/100 WBC (Bld) 82.8 % High 47-70 [facility] Platelet countOrdered By: Ledy Mena on 02-18-2025 Platelets (Bld) [#/Vol] 454 10*3/uL High 150-450 [facility] Potassium measurement (mass/ volume)Ordered By: Ledyroelorri Emmettbandaremi on 02-18-2025 Potassium (Unsp spec) [Mass/Vol] 4.0 mmol/L 3.3-5.1 [facility] RBC Auto (Bld) [#/Vol]Ordere d By: Lorraine Mena on 02-18-2025 RBC (Bld) [#/Vol] 3.76 10*6/uL Low 4.6-6.2 [facility] Serum creatinine measurement (mass/volume)Ordered By: Nettiethao Christinebandaremi on 02-18-2025 Creatinine [Mass/Vol] 1.16 mg/dL 0.70-1.20 [facility] Serum glucose measurement (m ass/volume)Ordered By: Lorraine Mena on 02-18-2025 Glucose [Mass/Vol] 112 mg/dL High 70-99 [facility] Serum or plasma calcium luis urement (mass/volume)Ordered By: Lorraine Mena on 02-18-2025 Calcium [Mass/Vol] 9.5 mg/dL 7.6-11.0 [facility] Serum or plasma cholesterol in HDL measurement (mass/volume)Ordered By: Lorraine Mena on 02-18-2025 Cholesterol in HDL [Mass/Vol] 96 mg/dL >40 [facility] Serum or plasma cholesterol measurement (mass/volume)Ordered By: Lorraine Mena on 02-18-2025 Cholesterol [Mass/Vol] 174 mg/dL <201 [facility] Serum or plasma urea nitroge n measurement (mass/volume)Ordered By: Lorraine Mena on 02-18-2025 Urea nitrogen [Mass/Vol] 19 mg/dL 4-19 [facility] Sodium levelOrdered By: Roselyn Mena on 02-18-2025 Sodium [Moles/Vol] 137 mmol/L 133-145 [facility] White blood cell (WBC) count Ordered By: Lorraine Mena on 02-18-2025 WBC (Bld) [#/Vol] 9.2 10*3/uL 4.4-11.0 [facility] Absolute lymphocyte countOrd ered By: Lorraine Mena on 02-11-2025 Lymphocytes Auto (Unsp spec) [#/Vol] 1.18 10*3/uL 0.83-4.51 [facility] Anion gap in Serum or Plasma Ordered By: Lorraine Mena on 02-11-2025 Anion gap [Moles/Vol] 11 mmol/L 5-15 [facility] Automated lymphocyte count a s percentage of total leukocytesOrdered By: Lorraine Mena on 02-11-2025 Lymphocytes/100 WBC Auto (Unsp spec) 16.0 % Low 19-41 [facility] BUN/creatinine ratioOrdered By: Lorraine Mena on 02-11-2025 Urea nitrogen/Creatinine [Mass ratio] 23.5 mg/mg High 10-20 [facility] Basophil percentageOrdered B y: Lorraine Christinebandaremi on 02-11-2025 Basophils/100 WBC (Bld) 0.7 % 0-1 [facility] Calculated very low density lipoprotein (VLDL) cholesterol measurementOrdered By: Lorraine Mena on 02-11-2025 Calculated very low density lipoprotein (VLDL) cholesterol measurement 19 mg/dL 5-40 [facility] Carbon dioxide, total [Moles /volume] in Central venous bloodOrdered By: Lorraine Mena on 02-11-2025 CO2 [Moles/Vol] 26.3 mmol/L 21.0-32.0 [facility] Chloride assayOrdered By: Ledy eMna on 02-11-2025 Chloride [Moles/Vol] 101 mmol/L 98-108 [facility] Eosinophil percentageOrdered By: Lorraine Mena on 02-11-2025 Eosinophils/100 WBC (Bld) 0.9 % 0-5 [facility] Erythrocyte distribution wid th ratioOrdered By: Lorraine Mena on 02-11-2025 Erythrocyte distribution width (RBC) [Ratio] 16.5 % High 11.6-14.6 [facility] Erythrocyte distribution wid th standard deviationOrdered By: Lorraine Mean on 02-11-2025 Erythrocyte distribution width (RBC) [Ratio] 51.8 fl High 35.1-43.9 [facility] Glomerular filtration rate ( GFR) estimation/1.73 sq m using serum, plasma, or whole bOrdered By: Lorraine Mena on 02-11-2025 GFR/1.73 sq M.predicted among non-blacks MDRD (S/P/Bld) [Vol rate/Area] 72 mL/min/{1.73_m2} >60 [facility] Hematocrit Auto (Bld) [Volum e fraction]Ordered By: Lorraine Mena on 02-11-2025 Hematocrit (Bld) [Volume fraction] 31.3 % Low 40-54 [facility] Hemoglobin measurementOrdere d By: Lorraine Mena on 02-11-2025 Hemoglobin (Bld) [Mass/Vol] 10.0 g/dL Low 13.0-16.5 [facility] Immature granulocytes/100 WB C Auto (Bld)Ordered By: Lorraine Mena on 02-11-2025 Immature granulocytes/100 WBC (Bld) 0.400 % 0.0-0.9 [facility] LDL calc ser/plasOrdered By: Lorraine Mena on 02-11-2025 Cholesterol in LDL [Mass/Vol] 56 mg/dL [facility] MCV (mean corpuscular volume ) determinationOrdered By: ml Mena on 02-11-2025 MCV (RBC) [Entitic vol] 86.5 fL 80-94 [facility] Mean corpuscular hemoglobin (MCH) determinationOrdered By: roecolumbianathao Mena on 02-11-2025 MCH (RBC) [Entitic mass] 27.6 pg 27.0-32.0 [facility] Monocyte percentageOrdered B y: Lorraine Mena on 02-11-2025 Monocytes/100 WBC (Bld) 9.3 % 0-10 [facility] Neutrophil percentageOrdered By: roecolumbianathao Mena on 02-11-2025 Neutrophils/100 WBC (Bld) 72.7 % High 47-70 [facility] Platelet countOrdered By: Ledy Mena on 02-11-2025 Platelets (Bld) [#/Vol] 457 10*3/uL High 150-450 [facility] Potassium measurement (mass/ volume)Ordered By: Lorraine Almonteemi on 02-11-2025 Potassium (Unsp spec) [Mass/Vol] 4.3 mmol/L 3.3-5.1 [facility] RBC Auto (Bld) [#/Vol]Ordere d By: Lorraine Mena on 02-11-2025 RBC (Bld) [#/Vol] 3.62 10*6/uL Low 4.6-6.2 [facility] Serum creatinine measurement (mass/volume)Ordered By: Lorraine Almonteemi on 02-11-2025 Creatinine [Mass/Vol] 1.07 mg/dL 0.70-1.20 [facility] Serum glucose measurement (m ass/volume)Ordered By: Lorraine Mena on 02-11-2025 Glucose [Mass/Vol] 78 mg/dL 70-99 [facility] Serum or plasma calcium luis urement (mass/volume)Ordered By: Lorraine Mena on 02-11-2025 Calcium [Mass/Vol] 9.6 mg/dL 7.6-11.0 [facility] Serum or plasma cholesterol in HDL measurement (mass/volume)Ordered By: Lorraine Mena on 02-11-2025 Cholesterol in HDL [Mass/Vol] 98 mg/dL >40 [facility] Serum or plasma cholesterol measurement (mass/volume)Ordered By: Lorraine Mena on 02-11-2025 Cholesterol [Mass/Vol] 173 mg/dL <201 [facility] Serum or plasma urea nitroge n measurement (mass/volume)Ordered By: Lorraine Mena on 02-11-2025 Urea nitrogen [Mass/Vol] 25 mg/dL High 4-19 [facility] Sodium levelOrdered By: Roselyn gauthierdaphney Trina on 02-11-2025 Sodium [Moles/Vol] 138 mmol/L 133-145 [facility] White blood cell (WBC) count Ordered By: Lorraine Mena on 02-11-2025 WBC (Bld) [#/Vol] 7.4 10*3/uL 4.4-11.0 [facility] Urine Legionella pneumophila antigen detectionOrdered By: Lorraine Mena on 02-09-2025 L. pneumophila Ag Ql (U) [facility] Absolute lymphocyte countOrd ered By: Lorraine Mena on 02-03-2025 Lymphocytes Auto (Unsp spec) [#/Vol] 1.05 10*3/uL 0.83-4.51 [facility] Anion gap in Serum or Plasma Ordered By: Lorraine Mena on 02-03-2025 Anion gap [Moles/Vol] 11 mmol/L 5-15 [facility] Automated lymphocyte count a s percentage of total leukocytesOrdered By: Lorraine Mena on 02-03-2025 Lymphocytes/100 WBC Auto (Unsp spec) 13.9 % Low 19-41 [facility] BUN/creatinine ratioOrdered By: Lorraine Mena on 02-03-2025 Urea nitrogen/Creatinine [Mass ratio] 20.3 mg/mg High 10-20 [facility] Basophil percentageOrdered B y: Lorraine Mena on 02-03-2025 Basophils/100 WBC (Bld) 0.8 % 0-1 [facility] Calculated very low density lipoprotein (VLDL) cholesterol measurementOrdered By: Lorraine Mena on 02-03-2025 Calculated very low density lipoprotein (VLDL) cholesterol measurement 25 mg/dL 5-40 [facility] Carbon dioxide, total [Moles /volume] in Central venous bloodOrdered By: Lorraine Mena on 02-03-2025 CO2 [Moles/Vol] 26.5 mmol/L 21.0-32.0 [facility] Chloride assayOrdered By: Ledy Mena on 02-03-2025 Chloride [Moles/Vol] 99 mmol/L 98-108 [facility] Eosinophil percentageOrdered By: Lorraine Mena on 02-03-2025 Eosinophils/100 WBC (Bld) 1.2 % 0-5 [facility] Erythrocyte distribution wid th ratioOrdered By: Lorraine Mena on 02-03-2025 Erythrocyte distribution width (RBC) [Ratio] 16.4 % High 11.6-14.6 [facility] Erythrocyte distribution wid th standard deviationOrdered By: Lorraine Mena on 02-03-2025 Erythrocyte distribution width (RBC) [Ratio] 52.5 fl High 35.1-43.9 [facility] Glomerular filtration rate ( GFR) estimation/1.73 sq m using serum, plasma, or whole bOrdered By: Lorraine Mena on 02-03-2025 GFR/1.73 sq M.predicted among non-blacks MDRD (S/P/Bld) [Vol rate/Area] 66 mL/min/{1.73_m2} >60 [facility] Hematocrit Auto (Bld) [Volum e fraction]Ordered By: Lorraine Mena on 02-03-2025 Hematocrit (Bld) [Volume fraction] 32.1 % Low 40-54 [facility] Hemoglobin measurementOrdere d By: Lorraine Mena on 02-03-2025 Hemoglobin (Bld) [Mass/Vol] 9.9 g/dL Low 13.0-16.5 [facility] Immature granulocytes/100 WB C Auto (Bld)Ordered By: Lorraine Mena on 02-03-2025 Immature granulocytes/100 WBC (Bld) 0.500 % 0.0-0.9 [facility] LDL calc ser/plasOrdered By: roecolumbianathao Mena on 02-03-2025 Cholesterol in LDL [Mass/Vol] 46 mg/dL [facility] MCV (mean corpuscular volume ) determinationOrdered By: Lorraine Mena on 02-03-2025 MCV (RBC) [Entitic vol] 87.2 fL 80-94 [facility] Mean corpuscular hemoglobin (MCH) determinationOrdered By: Lorraine Mena on 02-03-2025 MCH (RBC) [Entitic mass] 26.9 pg Low 27.0-32.0 [facility] Monocyte percentageOrdered B y: Lorraine Mena on 02-03-2025 Monocytes/100 WBC (Bld) 7.4 % 0-10 [facility] Neutrophil percentageOrdered By: Lorraine Mena on 02-03-2025 Neutrophils/100 WBC (Bld) 76.2 % High 47-70 [facility] Platelet countOrdered By: Ledy Mena on 02-03-2025 Platelets (Bld) [#/Vol] 423 10*3/uL 150-450 [facility] Potassium measurement (mass/ volume)Ordered By: Lorraine Mena on 02-03-2025 Potassium (Unsp spec) [Mass/Vol] 3.9 mmol/L 3.3-5.1 [facility] RBC Auto (Bld) [#/Vol]Ordere d By: Lorraine Mena on 02-03-2025 RBC (Bld) [#/Vol] 3.68 10*6/uL Low 4.6-6.2 [facility] Serum creatinine measurement (mass/volume)Ordered By: Lorraine Mena on 02-03-2025 Creatinine [Mass/Vol] 1.15 mg/dL 0.70-1.20 [facility] Serum glucose measurement (m ass/volume)Ordered By: Lorraine Mena on 02-03-2025 Glucose [Mass/Vol] 91 mg/dL 70-99 [facility] Serum or plasma calcium luis urement (mass/volume)Ordered By: Lorraine Mena on 02-03-2025 Calcium [Mass/Vol] 9.0 mg/dL 7.6-11.0 [facility] Serum or plasma cholesterol in HDL measurement (mass/volume)Ordered By: Lorraine Mena on 02-03-2025 Cholesterol in HDL [Mass/Vol] 88 mg/dL >40 [facility] Serum or plasma cholesterol measurement (mass/volume)Ordered By: Lorraine Mena on 02-03-2025 Cholesterol [Mass/Vol] 159 mg/dL <201 [facility] Serum or plasma urea nitroge n measurement (mass/volume)Ordered By: Lorraine Mena on 02-03-2025 Urea nitrogen [Mass/Vol] 23 mg/dL High 4-19 [facility] Sodium levelOrdered By: Roselyn gauthierdaphney Trina on 02-03-2025 Sodium [Moles/Vol] 136 mmol/L 133-145 [facility] White blood cell (WBC) count Ordered By: Lorraine Mena on 02-03-2025 WBC (Bld) [#/Vol] 7.5 10*3/uL 4.4-11.0 [facility] Absolute lymphocyte countOrd ered By: Lorraine Mena on 01-27-2025 Lymphocytes Auto (Unsp spec) [#/Vol] 1.04 10*3/uL 0.83-4.51 [facility] Anion gap in Serum or Plasma Ordered By: Lorraine Mena on 01-27-2025 Anion gap [Moles/Vol] 12 mmol/L 5-15 [facility] Automated lymphocyte count a s percentage of total leukocytesOrdered By: Lorraine Mena on 01-27-2025 Lymphocytes/100 WBC Auto (Unsp spec) 14.3 % Low 19-41 [facility] BUN/creatinine ratioOrdered By: Lorraine Mena on 01-27-2025 Urea nitrogen/Creatinine [Mass ratio] 23.2 mg/mg High 10-20 [facility] Basophil percentageOrdered B y: Lorraine Mena on 01-27-2025 Basophils/100 WBC (Bld) 0.7 % 0-1 [facility] Calculated very low density lipoprotein (VLDL) cholesterol measurementOrdered By: Lorraine Mena on 01-27-2025 Calculated very low density lipoprotein (VLDL) cholesterol measurement 17 mg/dL 5-40 [facility] Carbon dioxide, total [Moles /volume] in Central venous bloodOrdered By: Lorraine Mena on 01-27-2025 CO2 [Moles/Vol] 26.9 mmol/L 21.0-32.0 [facility] Chloride assayOrdered By: Ledy Mena on 01-27-2025 Chloride [Moles/Vol] 96 mmol/L Low 98-108 [facility] Eosinophil percentageOrdered By: Lorraine Mena on 01-27-2025 Eosinophils/100 WBC (Bld) 1.0 % 0-5 [facility] Erythrocyte distribution wid th ratioOrdered By: Lorraine Mena on 01-27-2025 Erythrocyte distribution width (RBC) [Ratio] 16.7 % High 11.6-14.6 [facility] Erythrocyte distribution wid th standard deviationOrdered By: Lorraine Mena on 01-27-2025 Erythrocyte distribution width (RBC) [Ratio] 53.6 fl High 35.1-43.9 [facility] Glomerular filtration rate ( GFR) estimation/1.73 sq m using serum, plasma, or whole bOrdered By: Lorraine Mena on 01-27-2025 GFR/1.73 sq M.predicted among non-blacks MDRD (S/P/Bld) [Vol rate/Area] 60 mL/min/{1.73_m2} >60 [facility] Hematocrit Auto (Bld) [Volum e fraction]Ordered By: Lorraine Mena on 01-27-2025 Hematocrit (Bld) [Volume fraction] 31.2 % Low 40-54 [facility] Hemoglobin measurementOrdere d By: Lorraine Mena on 01-27-2025 Hemoglobin (Bld) [Mass/Vol] 9.5 g/dL Low 13.0-16.5 [facility] Immature granulocytes/100 WB C Auto (Bld)Ordered By: Ledyroelisathao Christinebandaremi on 01-27-2025 Immature granulocytes/100 WBC (Bld) 0.600 % 0.0-0.9 [facility] LDL calc ser/plasOrdered By: roecolumbianathao Christinebandaremi on 01-27-2025 Cholesterol in LDL [Mass/Vol] 64 mg/dL [facility] MCV (mean corpuscular volume ) determinationOrdered By: Ledyroelorri Emmettbandaremi on 01-27-2025 MCV (RBC) [Entitic vol] 88.4 fL 80-94 [facility] Mean corpuscular hemoglobin (MCH) determinationOrdered By: Ledyml Christinebandaremi on 01-27-2025 MCH (RBC) [Entitic mass] 26.9 pg Low 27.0-32.0 [facility] Monocyte percentageOrdered B y: Lorraine Mena on 01-27-2025 Monocytes/100 WBC (Bld) 7.6 % 0-10 [facility] Neutrophil percentageOrdered By: roecolumbianathao Emmettalex on 01-27-2025 Neutrophils/100 WBC (Bld) 75.8 % High 47-70 [facility] Platelet countOrdered By: ml Emmettbandaremi on 01-27-2025 Platelets (Bld) [#/Vol] 413 10*3/uL 150-450 [facility] Potassium measurement (mass/ volume)Ordered By: Ledyroelisathao Christinebandaremi on 01-27-2025 Potassium (Unsp spec) [Mass/Vol] 4.4 mmol/L 3.3-5.1 [facility] RBC Auto (Bld) [#/Vol]Ordere d By: Lorraine Mena on 01-27-2025 RBC (Bld) [#/Vol] 3.53 10*6/uL Low 4.6-6.2 [facility] Serum creatinine measurement (mass/volume)Ordered By: Lorraine Mena on 01-27-2025 Creatinine [Mass/Vol] 1.25 mg/dL High 0.70-1.20 [facility] Serum glucose measurement (m ass/volume)Ordered By: Lorraine Mena on 01-27-2025 Glucose [Mass/Vol] 86 mg/dL 70-99 [facility] Serum or plasma calcium luis urement (mass/volume)Ordered By: Lorraine Mena on 01-27-2025 Calcium [Mass/Vol] 9.5 mg/dL 7.6-11.0 [facility] Serum or plasma cholesterol in HDL measurement (mass/volume)Ordered By: Lorraine Mena on 01-27-2025 Cholesterol in HDL [Mass/Vol] 81 mg/dL >40 [facility] Serum or plasma cholesterol measurement (mass/volume)Ordered By: Lorraine Mena on 01-27-2025 Cholesterol [Mass/Vol] 161 mg/dL <201 [facility] Serum or plasma urea nitroge n measurement (mass/volume)Ordered By: Lorraine eMna on 01-27-2025 Urea nitrogen [Mass/Vol] 29 mg/dL High 4-19 [facility] Sodium levelOrdered By: Roselyn Mena on 01-27-2025 Sodium [Moles/Vol] 135 mmol/L 133-145 [facility] White blood cell (WBC) count Ordered By: Lorraine Mena on 01-27-2025 WBC (Bld) [#/Vol] 7.3 10*3/uL 4.4-11.0 [facility] Absolute lymphocyte countOrd ered By: Lorraine Mena on 01-20-2025 Lymphocytes Auto (Unsp spec) [#/Vol] 0.97 10*3/uL 0.83-4.51 [facility] Anion gap in Serum or Plasma Ordered By: Lorraine Mena on 01-20-2025 Anion gap [Moles/Vol] 13 mmol/L 5-15 [facility] Automated lymphocyte count a s percentage of total leukocytesOrdered By: Lorraine Mena on 01-20-2025 Lymphocytes/100 WBC Auto (Unsp spec) 14.9 % Low 19-41 [facility] BUN/creatinine ratioOrdered By: Lorraine Mena on 01-20-2025 Urea nitrogen/Creatinine [Mass ratio] 20.4 mg/mg High 10-20 [facility] Basophil percentageOrdered B y: Lorraine Mena on 01-20-2025 Basophils/100 WBC (Bld) 0.6 % 0-1 [facility] Calculated very low density lipoprotein (VLDL) cholesterol measurementOrdered By: Lorraine Mena on 01-20-2025 Calculated very low density lipoprotein (VLDL) cholesterol measurement 16 mg/dL 5-40 [facility] Carbon dioxide, total [Moles /volume] in Central venous bloodOrdered By: Lorraine Mena on 01-20-2025 CO2 [Moles/Vol] 26.0 mmol/L 21.0-32.0 [facility] Chloride assayOrdered By: Ledy Mena on 01-20-2025 Chloride [Moles/Vol] 99 mmol/L 98-108 [facility] Eosinophil percentageOrdered By: Lorraine Mena on 01-20-2025 Eosinophils/100 WBC (Bld) 0.9 % 0-5 [facility] Erythrocyte distribution wid th ratioOrdered By: Lorraine Mena on 01-20-2025 Erythrocyte distribution width (RBC) [Ratio] 16.6 % High 11.6-14.6 [facility] Erythrocyte distribution wid th standard deviationOrdered By: Lorraine Mena on 01-20-2025 Erythrocyte distribution width (RBC) [Ratio] 54.0 fl High 35.1-43.9 [facility] Glomerular filtration rate ( GFR) estimation/1.73 sq m using serum, plasma, or whole bOrdered By: Lorraine Mena on 01-20-2025 GFR/1.73 sq M.predicted among non-blacks MDRD (S/P/Bld) [Vol rate/Area] 62 mL/min/{1.73_m2} >60 [facility] Hematocrit Auto (Bld) [Volum e fraction]Ordered By: Lorraine Mena on 01-20-2025 Hematocrit (Bld) [Volume fraction] 30.5 % Low 40-54 [facility] Hemoglobin measurementOrdere d By: Ledyroelisathao Christinebandaremi on 01-20-2025 Hemoglobin (Bld) [Mass/Vol] 9.4 g/dL Low 13.0-16.5 [facility] Immature granulocytes/100 WB C Auto (Bld)Ordered By: Lorraine Mena on 01-20-2025 Immature granulocytes/100 WBC (Bld) 0.500 % 0.0-0.9 [facility] LDL calc ser/plasOrdered By: roecolumbianathao Mena on 01-20-2025 Cholesterol in LDL [Mass/Vol] 45 mg/dL [facility] MCV (mean corpuscular volume ) determinationOrdered By: Roselyncolumbianathao Mena on 01-20-2025 MCV (RBC) [Entitic vol] 88.9 fL 80-94 [facility] Mean corpuscular hemoglobin (MCH) determinationOrdered By: Lorraine Mena on 01-20-2025 MCH (RBC) [Entitic mass] 27.4 pg 27.0-32.0 [facility] Monocyte percentageOrdered B y: Ledyroelisathao Christinebandaremi on 01-20-2025 Monocytes/100 WBC (Bld) 8.2 % 0-10 [facility] Neutrophil percentageOrdered By: Lorraine Mena on 01-20-2025 Neutrophils/100 WBC (Bld) 74.9 % High 47-70 [facility] Platelet countOrdered By: Ledy ellethao Mena on 01-20-2025 Platelets (Bld) [#/Vol] 405 10*3/uL 150-450 [facility] Potassium measurement (mass/ volume)Ordered By: Ledyml Mena on 01-20-2025 Potassium (Unsp spec) [Mass/Vol] 3.7 mmol/L 3.3-5.1 [facility] RBC Auto (Bld) [#/Vol]Ordere d By: Roselynlisathao Christinebandaremi on 01-20-2025 RBC (Bld) [#/Vol] 3.43 10*6/uL Low 4.6-6.2 [facility] Serum creatinine measurement (mass/volume)Ordered By: Lorraine Mena on 01-20-2025 Creatinine [Mass/Vol] 1.21 mg/dL High 0.70-1.20 [facility] Serum glucose measurement (m ass/volume)Ordered By: Lorraine Mena on 01-20-2025 Glucose [Mass/Vol] 149 mg/dL High 70-99 [facility] Serum or plasma calcium luis urement (mass/volume)Ordered By: Lorraine Mena on 01-20-2025 Calcium [Mass/Vol] 9.4 mg/dL 7.6-11.0 [facility] Serum or plasma cholesterol in HDL measurement (mass/volume)Ordered By: Lorraine Mena on 01-20-2025 Cholesterol in HDL [Mass/Vol] 75 mg/dL >40 [facility] Serum or plasma cholesterol measurement (mass/volume)Ordered By: Lorraine Mena on 01-20-2025 Cholesterol [Mass/Vol] 136 mg/dL <201 [facility] Serum or plasma urea nitroge n measurement (mass/volume)Ordered By: Lorraine Mena on 01-20-2025 Urea nitrogen [Mass/Vol] 25 mg/dL High 4-19 [facility] Sodium levelOrdered By: Roselyn Mena on 01-20-2025 Sodium [Moles/Vol] 137 mmol/L 133-145 [facility] White blood cell (WBC) count Ordered By: Lorraine Mena on 01-20-2025 WBC (Bld) [#/Vol] 6.5 10*3/uL 4.4-11.0 [facility] Absolute lymphocyte countOrd ered By: Lorraine Mena on 01-13-2025 Lymphocytes Auto (Unsp spec) [#/Vol] 0.97 10*3/uL 0.83-4.51 [facility] Anion gap in Serum or Plasma Ordered By: Lorraine Mena on 01-13-2025 Anion gap [Moles/Vol] 11 mmol/L 5-15 [facility] Automated lymphocyte count a s percentage of total leukocytesOrdered By: Lorraine Mena on 01-13-2025 Lymphocytes/100 WBC Auto (Unsp spec) 16.5 % Low 19-41 [facility] BUN/creatinine ratioOrdered By: Lorraine Mena on 01-13-2025 Urea nitrogen/Creatinine [Mass ratio] 17.7 mg/mg 10-20 [facility] Basophil percentageOrdered B y: Lorraine Mena on 01-13-2025 Basophils/100 WBC (Bld) 0.8 % 0-1 [facility] Calculated very low density lipoprotein (VLDL) cholesterol measurementOrdered By: Lorraine Mena on 01-13-2025 Calculated very low density lipoprotein (VLDL) cholesterol measurement 34 mg/dL 5-40 [facility] Carbon dioxide, total [Moles /volume] in Central venous bloodOrdered By: Lorraine Mena on 01-13-2025 CO2 [Moles/Vol] 27.7 mmol/L 21.0-32.0 [facility] Chloride assayOrdered By: Ledy Mena on 01-13-2025 Chloride [Moles/Vol] 101 mmol/L 98-108 [facility] Eosinophil percentageOrdered By: Lorraine Mena on 01-13-2025 Eosinophils/100 WBC (Bld) 1.0 % 0-5 [facility] Erythrocyte distribution wid th ratioOrdered By: Lorraine Mena on 01-13-2025 Erythrocyte distribution width (RBC) [Ratio] 16.1 % High 11.6-14.6 [facility] Erythrocyte distribution wid th standard deviationOrdered By: Lorraine Mena on 01-13-2025 Erythrocyte distribution width (RBC) [Ratio] 51.1 fl High 35.1-43.9 [facility] Glomerular filtration rate ( GFR) estimation/1.73 sq m using serum, plasma, or whole bOrdered By: Lorraine Mena on 01-13-2025 GFR/1.73 sq M.predicted among non-blacks MDRD (S/P/Bld) [Vol rate/Area] 70 mL/min/{1.73_m2} >60 [facility] Hematocrit Auto (Bld) [Volum e fraction]Ordered By: Lorraine Emmettbandaremi on 01-13-2025 Hematocrit (Bld) [Volume fraction] 31.4 % Low 40-54 [facility] Hemoglobin measurementOrdere d By: Lorraine Mena on 01-13-2025 Hemoglobin (Bld) [Mass/Vol] 9.9 g/dL Low 13.0-16.5 [facility] Immature granulocytes/100 WB C Auto (Bld)Ordered By: Lorraine Mena on 01-13-2025 Immature granulocytes/100 WBC (Bld) 0.500 % 0.0-0.9 [facility] LDL calc ser/plasOrdered By: [facility] Almonteemi on 01-13-2025 Cholesterol in LDL [Mass/Vol] 51 mg/dL [facility] MCV (mean corpuscular volume ) determinationOrdered By: roecolumbianathao Emmettbandaremi on 01-13-2025 MCV (RBC) [Entitic vol] 87.7 fL 80-94 [facility] Mean corpuscular hemoglobin (MCH) determinationOrdered By: Ledyroelorri Mena on 01-13-2025 MCH (RBC) [Entitic mass] 27.7 pg 27.0-32.0 [facility] Monocyte percentageOrdered B y: Lorraine Mena on 01-13-2025 Monocytes/100 WBC (Bld) 6.8 % 0-10 [facility] Neutrophil percentageOrdered By: Lorraine Mena on 01-13-2025 Neutrophils/100 WBC (Bld) 74.4 % High 47-70 [facility] Platelet countOrdered By: Ledy Mena on 01-13-2025 Platelets (Bld) [#/Vol] 421 10*3/uL 150-450 [facility] Potassium measurement (mass/ volume)Ordered By: Lorraine Mena on 01-13-2025 Potassium (Unsp spec) [Mass/Vol] 3.8 mmol/L 3.3-5.1 [facility] RBC Auto (Bld) [#/Vol]Ordere d By: Lorraine Mena on 01-13-2025 RBC (Bld) [#/Vol] 3.58 10*6/uL Low 4.6-6.2 [facility] Serum creatinine measurement (mass/volume)Ordered By: Lorraine Mena on 01-13-2025 Creatinine [Mass/Vol] 1.10 mg/dL 0.70-1.20 [facility] Serum glucose measurement (m ass/volume)Ordered By: Lorraine Mena on 01-13-2025 Glucose [Mass/Vol] 110 mg/dL High 70-99 [facility] Serum or plasma calcium luis urement (mass/volume)Ordered By: Lorraine Mena on 01-13-2025 Calcium [Mass/Vol] 9.2 mg/dL 7.6-11.0 [facility] Serum or plasma cholesterol in HDL measurement (mass/volume)Ordered By: Lorraine Mena on 01-13-2025 Cholesterol in HDL [Mass/Vol] 63 mg/dL >40 [facility] Serum or plasma cholesterol measurement (mass/volume)Ordered By: Lorraine Mena on 01-13-2025 Cholesterol [Mass/Vol] 147 mg/dL <201 [facility] Serum or plasma urea nitroge n measurement (mass/volume)Ordered By: Lorraine Mena on 01-13-2025 Urea nitrogen [Mass/Vol] 20 mg/dL High 4-19 [facility] Sodium levelOrdered By: Roselyn Mena on 01-13-2025 Sodium [Moles/Vol] 140 mmol/L 133-145 [facility] White blood cell (WBC) count Ordered By: Lorraine Mena on 01-13-2025 WBC (Bld) [#/Vol] 5.9 10*3/uL 4.4-11.0 [facility] Electrocardiogram reportOrde red By: Geronimo Downey on 01-07-2025 EKG study [facility] Other Phone: Absolute lymphocyte countOrd ered By: Frankie Galindo on 01-06-2025 Lymphocytes Auto (Unsp spec) [#/Vol] 0.58 10*3/uL Low 0.83-4.51 [facility] Anion gap in Serum or Plasma Ordered By: Frankie Galindo on 01-06-2025 Anion gap [Moles/Vol] 12 mmol/L 5-15 [facility] Automated lymphocyte count a s percentage of total leukocytesOrdered By: Frankie Galindo on 01-06-2025 Lymphocytes/100 WBC Auto (Unsp spec) 4.8 % Low 19-41 [facility] BUN/creatinine ratioOrdered By: Frankie Galindo on 01-06-2025 Urea nitrogen/Creatinine [Mass ratio] 14.2 mg/mg 10-20 [facility] Basophil percentageOrdered B y: Frankie Galindo on 01-06-2025 Basophils/100 WBC (Bld) 0.2 % 0-1 [facility] Carbon dioxide, total [Moles /volume] in Central venous bloodOrdered By: Frankie Galindo on 01-06-2025 CO2 [Moles/Vol] 27.9 mmol/L 21.0-32.0 [facility] Chloride assayOrdered By: Osiel Galindo on 01-06-2025 Chloride [Moles/Vol] 98 mmol/L 98-108 [facility] Eosinophil percentageOrdered By: Frankie Galindo on 01-06-2025 Eosinophils/100 WBC (Bld) 0.1 % 0-5 [facility] Erythrocyte distribution wid th ratioOrdered By: Frankie Galindo on 01-06-2025 Erythrocyte distribution width (RBC) [Ratio] 15.3 % High 11.6-14.6 [facility] Erythrocyte distribution wid th standard deviationOrdered By: Frankie Galindo on 01-06-2025 Erythrocyte distribution width (RBC) [Ratio] 49.7 fl High 35.1-43.9 [facility] Glomerular filtration rate ( GFR) estimation/1.73 sq m using serum, plasma, or whole bOrdered By: Frankie Galindo on 01-06-2025 GFR/1.73 sq M.predicted among non-blacks MDRD (S/P/Bld) [Vol rate/Area] 52 mL/min/{1.73_m2} Low >60 [facility] Hematocrit Auto (Bld) [Volum e fraction]Ordered By: Frankie Galindo on 01-06-2025 Hematocrit (Bld) [Volume fraction] 35.8 % Low 40-54 [facility] Hemoglobin measurementOrdere d By: Frankie Galindo on 01-06-2025 Hemoglobin (Bld) [Mass/Vol] 11.2 g/dL Low 13.0-16.5 [facility] Immature granulocytes/100 WB C Auto (Bld)Ordered By: Frankie Galindo on 01-06-2025 Immature granulocytes/100 WBC (Bld) 0.300 % 0.0-0.9 [facility] MCV (mean corpuscular volume ) determinationOrdered By: Frankie Galindo on 01-06-2025 MCV (RBC) [Entitic vol] 88.8 fL 80-94 [facility] Magnesium measurement (mass/ volume)Ordered By: Frankie Galindo on 01-06-2025 Magnesium (Unsp spec) [Mass/Vol] 2.1 mg/dL 1.5-2.2 [facility] Mean corpuscular hemoglobin (MCH) determinationOrdered By: Frankie Galindo on 01-06-2025 MCH (RBC) [Entitic mass] 27.8 pg 27.0-32.0 [facility] Monocyte percentageOrdered B y: Frankie Galindo on 01-06-2025 Monocytes/100 WBC (Bld) 7.0 % 0-10 [facility] Neutrophil percentageOrdered By: Frankie Galindo on 01-06-2025 Neutrophils/100 WBC (Bld) 87.6 % High 47-70 [facility] Platelet countOrdered By: Osiel Galindo on 01-06-2025 Platelets (Bld) [#/Vol] 385 10*3/uL 150-450 [facility] Potassium measurement (mass/ volume)Ordered By: Frankie Galindo on 01-06-2025 Potassium (Unsp spec) [Mass/Vol] 4.9 mmol/L 3.3-5.1 [facility] RBC Auto (Bld) [#/Vol]Ordere d By: Frankie Galindo on 01-06-2025 RBC (Bld) [#/Vol] 4.03 10*6/uL Low 4.6-6.2 [facility] Serum creatinine measurement (mass/volume)Ordered By: Frankie Galindo on 01-06-2025 Creatinine [Mass/Vol] 1.41 mg/dL High 0.70-1.20 [facility] Serum glucose measurement (m ass/volume)Ordered By: Frankie Galindo on 01-06-2025 Glucose [Mass/Vol] 111 mg/dL High 70-99 [facility] Serum or plasma calcium luis urement (mass/volume)Ordered By: Frankie Galindo on 01-06-2025 Calcium [Mass/Vol] 9.3 mg/dL 7.6-11.0 [facility] Serum or plasma urea nitroge n measurement (mass/volume)Ordered By: Frankie Galindo on 01-06-2025 Urea nitrogen [Mass/Vol] 20 mg/dL High 4-19 [facility] Sodium levelOrdered By: Matthew Galindo on 01-06-2025 Sodium [Moles/Vol] 138 mmol/L 133-145 [facility] Troponin T.cardiac [Mass/vol ume] in Serum or Plasma by High sensitivity methodOrdered By: Frankie Yi on 01-06-2025 Troponin T.cardiac High sensitivity method [Mass/Vol] 26 ng/L High <22 [facility] Troponin T.cardiac High sensitivity method [Mass/Vol] 23 ng/L High <22 [facility] White blood cell (WBC) count Ordered By: Frankie Galindo on 01-06-2025 WBC (Bld) [#/Vol] 12.0 10*3/uL High 4.4-11.0 [facility] Absolute lymphocyte countOrd ered By: Fco Monroy on 01-05-2025 Lymphocytes Auto (Unsp spec) [#/Vol] 1.45 10*3/uL 0.83-4.51 [facility] Anion gap in Serum or Plasma Ordered By: Fco Monroy on 01-05-2025 Anion gap [Moles/Vol] 14 mmol/L 5-15 [facility] Assessment of wrist artery p atency prior to arterial punctureOrdered By: Fco Monroy on 01-05-2025 Arterial patency Wrist artery --pre arterial puncture Positive [facility] Automated lymphocyte count a s percentage of total leukocytesOrdered By: Fco Monroy on 01-05-2025 Lymphocytes/100 WBC Auto (Unsp spec) 14.2 % Low 19-41 [facility] BUN/creatinine ratioOrdered By: Fco Monroy on 01-05-2025 Urea nitrogen/Creatinine [Mass ratio] 18.8 mg/mg 10- [facility] Basophil percentageOrdered B y: Fco Monroy on 01-05-2025 Basophils/100 WBC (Bld) 0.4 % 0-1 [facility] Bilirubin, totalOrdered By: Fco Monroy on 01-05-2025 Bilirubin [Mass/Vol] 0.25 mg/dL 0.00-1.30 [facility] Blood base excess determinat ionOrdered By: Fco Monroy on 01-05-2025 Base excess Calc (BldV) [Moles/Vol] 9 mmol/L High -2-2 [facility] Blood bicarbonate measuremen tOrdered By: Fco Monroy on 01-05-2025 HCO3 (Bld) [Moles/Vol] 33.0 mmol/L High 22-26 [facility] Blood cultureOrdered By: Sebastien Galindo on 01-05-2025 Bacteria identified Cx Nom (Bld) No growth in 5 days. [facility] CBC W/Diff, Automatedon 12-18 Absolute Lymph 1.45 X10 3/uL Normal 0.83-4.51 [facility] Comment on above: Performed By: #### L 100.0100, L500.4050, [id number] ####[facility] [address] [place], [address] Absolute Neut 7.8 X10 3/uL High 2.0-7.7 [facility] Comment on above: Performed By: #### L 100.0100, [id number], [id number] ####[facility] [id number] [place], [address] Basophils/100 WBC (Bld) 0.4 % Normal 0-1 [facility] Comment on above: Performed By: #### L 100.0100, [id number], [id number] ####[facility] [address] [place], [address] Eosinophils/100 WBC (Bld) 1.2 % Normal 0-5 [facility] Comment on above: Performed By: #### L 100.0100, [id number], [id number] ####[facility] [address] [place], [address] Erythrocyte distribution width (RBC) [Ratio] 15.1 % High 11.6-14.6 [facility] Comment on above: Performed By: #### L 100.0100, [id number], [id number] ####[facility] [address] [place], [address] Hematocrit (Bld) [Volume fraction] 39.6 % Low 40-54 [facility] Comment on above: Performed By: #### L 100.0100, [id number], [id number] ####[facility] [address] [place], [address] Hemoglobin (Bld) [Mass/Vol] 12.6 g/dL Low 13.0-16.5 [facility] Comment on above: Performed By: #### L 100.0100, [id number], [id number] ####[facility] [address] [place], [address] IG% 0.500 Normal 0.0-0.9 [facility] Comment on above: Result Comment: IG% - Immature Granulocytes (promyelocytes, myelocytes andmetamyelocytes) > 1% indicates that a LEFT SHIFT is Present. Performed By: #### L 100.0100, [id number], [id number] ####[facility] [address] [place], [address] Lymphocytes/100 WBC (Bld) 14.2 % Low 19-41 [facility] Comment on above: Performed By: #### L 100.0100, [id number], [id number] ####[facility] [address] [place], [address] MCH (RBC) [Entitic mass] 27.8 pg Normal 27.0-32.0 [facility] Comment on above: Performed By: #### L 100.0100, [id number], [id number] ####[facility] [address] [place], [address] MCHC (RBC) [Mass/Vol] 31.8 g/dL Low 32-36 [facility] Comment on above: Performed By: #### L 100.0100, [id number], [id number] ####[facility] [address] [place], [address] MCV (RBC) [Entitic vol] 87.4 fL Normal 80-94 [facility] Comment on above: Performed By: #### L 100.0100, [id number], [id number] ####[facility] [address] [place], [address] Monocytes/100 WBC (Bld) 7.0 % Normal 0-10 [facility] Comment on above: Performed By: #### L 100.0100, [id number], [id number] ####[facility] [address] [place], [address] Neutrophils/100 WBC (Bld) 76.7 % High 47-70 [facility] Comment on above: Performed By: #### L 100.0100, [id number], [id number] ####[facility] [address] [place], [address] Nucleated RBC (Bld) [#/Vol] 0 10*3/uL Normal 0-5 [facility] Comment on above: Performed By: #### L 100.0100, L500.4050, L503.6005 ####[facility] [address] [place], [address] Platelet mean volume (Bld) [Entitic vol] 9.8 fL Normal 6.2-12.0 [facility] Comment on above: Performed By: #### L 100.0100, L500.4050, L503.6005 ####[facility] [address] [place], [address] Platelets (Bld) [#/Vol] 462 10*3/uL High 150-450 [facility] Comment on above: Performed By: #### L 100.0100, L500.4050, L503.6005 ####[facility] [address] [place], [address] RBC (Bld) [#/Vol] 4.53 10*6/uL Low 4.6-6.2 [facility] Comment on above: Performed By: #### L 100.0100, L500.4050, L503.6005 ####[facility] [address] [place], [address] RDW SD 48.0 fl High 35.1-43.9 [facility] Comment on above: Performed By: #### L 100.0100, L500.4050, L503.6005 ####[facility] [address] [place], [address] WBC (Bld) [#/Vol] 10.2 10*3/uL Normal 4.4-11.0 [facility] Comment on above: Performed By: #### L 100.0100, L500.4050, L503.6005 ####[facility] [address] [place], [address] Carbon dioxide, total [Moles /volume] in Central venous bloodOrdered By: Fco Monroy on 01-05-2025 CO2 [Moles/Vol] 28.4 mmol/L 21.0-32.0 [facility] Chloride assayOrdered By: Ug o Monroy on 01-05-2025 Chloride [Moles/Vol] 93 mmol/L Low 98-108 [facility] Comprehensive Metabolic Prof ilon 01-05-2025 Albumin [Mass/Vol] 4.6 g/dL Normal 3.4-4.8 [facility] Comment on above: Performed By: #### L 100.0100, L500.4050, L503.6005 ####[facility] [address] [place], [address] Albumin/Globulin [Mass ratio] 1.4 {ratio} Normal 0.9-2.4 [facility] Comment on above: Performed By: #### L 100.0100, L500.4050, L503.6005 ####[facility] [address] [place], [address] ALK PHOS 83 U/L Normal 40-129 [facility] Comment on above: Performed By: #### L 100.0100, L500.4050, L503.6005 ####[facility] [address] [place], [address] ALT [Catalytic activity/Vol] 33 U/L Normal <=46 [facility] Comment on above: Performed By: #### L 100.0100, L500.4050, L503.6005 ####[facility] [address] [place], [address] AST [Catalytic activity/Vol] 32 U/L Normal <=37 [facility] Comment on above: Result Comment: Hemo lysis present, Results??could be affected.?? Performed By: #### L 100.0100, L500.4050, L503.6005 ####[facility] [address] [place], [address] Bilirubin [Mass/Vol] 0.25 mg/dL Normal 0.00-1.30 [facility] Comment on above: Performed By: #### L 100.0100, L500.4050, L503.6005 ####[facility] [address] [place], [address] BUN/CRE 18.8 RATIO Normal 10-20 [facility] Comment on above: Performed By: #### L 100.0100, L500.4050, L503.6005 ####[facility] [address] [place], [address] Calcium [Mass/Vol] 10.3 mg/dL Normal 7.6-11.0 [facility] Comment on above: Performed By: #### L 100.0100, L500.4050, L503.6005 ####[facility] [address] [place], [address] Chloride [Moles/Vol] 93 mmol/L Low 98-108 [facility] Comment on above: Performed By: #### L 100.0100, L500.4050, L503.6005 ####[facility] [address] [place], [address] CO2 [Moles/Vol] 28.4 mmol/L Normal 21.0-32.0 [facility] Comment on above: Performed By: #### L 100.0100, L500.4050, L503.6005 ####[facility] [address] [place], [address] Creatinine [Mass/Vol] 1.25 mg/dL High 0.70-1.20 [facility] Comment on above: Performed By: #### L 100.0100, L500.4050, L503.6005 ####[facility] [address] [place], [address] ECRCL 54.46 ml/min Normal 50-250 [facility] Comment on above: Performed By: #### L 100.0100, L500.4050, L503.6005 ####[facility] [address] [place], [address] GAP 14 Normal 5-15 [facility] Comment on above: Performed By: #### L 100.0100, L500.4050, L503.6005 ####[facility] [address] [place], [address] GFR/1.73 sq M.predicted among non-blacks MDRD (S/P/Bld) [Vol rate/Area] 60 mL/min/{1.73_m2} Normal >60 [facility] Comment on above: Result Comment: mL/m in/1.73m2 CKD-EPI Creatinine Equation (2020) Performed By: #### L 100.0100, L500.4050, L503.6005 ####[facility] [address] [place], [address] Globulin (S) [Mass/Vol] 3.2 g/dL Normal 2.2-4.2 [facility] Comment on above: Performed By: #### L 100.0100, L500.4050, L503.6005 ####[facility] [address] [place], [address] Glucose [Mass/Vol] 123 mg/dL High 70-99 [facility] Comment on above: Performed By: #### L 100.0100, L500.4050, L503.6005 ####[facility] [address] [place], [address] Potassium [Moles/Vol] 4.3 mmol/L Normal 3.3-5.1 [facility] Comment on above: Result Comment: Hemo lysis present, Results??could be affected.?? Performed By: #### L 100.0100, L500.4050, L503.6005 ####[facility] [address] [place], [address] Sodium [Moles/Vol] 135 mmol/L Normal 133-145 [facility] Comment on above: Performed By: #### L 100.0100, L500.4050, L503.6005 ####[facility] [address] [place], [address] T PROT 7.8 g/dL Normal 5.9-8.4 [facility] Comment on above: Performed By: #### L 100.0100, L500.4050, L503.6005 ####[facility] [address] [place], [address] Urea nitrogen [Mass/Vol] 24 mg/dL High 4-19 [facility] Comment on above: Performed By: #### L 100.0100, L500.4050, L503.6005 ####[facility] [address] [place], [address] Eosinophil percentageOrdered By: Fco Monroy on 01-05-2025 Eosinophils/100 WBC (Bld) 1.2 % 0-5 [facility] Erythrocyte distribution wid th ratioOrdered By: Fco Monroy on 01-05-2025 Erythrocyte distribution width (RBC) [Ratio] 15.1 % High 11.6-14.6 [facility] Erythrocyte distribution wid th standard deviationOrdered By: Fco Monroy on 01-05-2025 Erythrocyte distribution width (RBC) [Ratio] 48.0 fl High 35.1-43.9 [facility] Glomerular filtration rate ( GFR) estimation/1.73 sq m using serum, plasma, or whole bOrdered By: Fco Monroy on 01-05-2025 GFR/1.73 sq M.predicted among non-blacks MDRD (S/P/Bld) [Vol rate/Area] 60 mL/min/{1.73_m2} >60 [facility] Gram stainOrdered By: Frankie Galindo on 01-05-2025 Microscopic observation Gram stain Nom (Unsp spec) [facility] Hematocrit Auto (Bld) [Volum e fraction]Ordered By: Fco Monroy on 01-05-2025 Hematocrit (Bld) [Volume fraction] 39.6 % Low 40-54 [facility] Hemoglobin measurementOrdere d By: Fco Monroy on 01-05-2025 Hemoglobin (Bld) [Mass/Vol] 12.6 g/dL Low 13.0-16.5 [facility] Immature granulocytes/100 WB C Auto (Bld)Ordered By: Fco Monroy on 01-05-2025 Immature granulocytes/100 WBC (Bld) 0.500 % 0.0-0.9 [facility] Lactic Acidon 01-05-2025 Lactate [Moles/Vol] 1.1 mmol/L Normal 0.0-2.0 [facility] Comment on above: Order Comment: Y Performed By: #### L 100.0100, L500.4050, L503.6005 ####[facility] [address] [place], [place], [address] MCV (mean corpuscular volume ) determinationOrdered By: Fco Monroy on 01-05-2025 MCV (RBC) [Entitic vol] 87.4 fL 80-94 [facility] Mean corpuscular hemoglobin (MCH) determinationOrdered By: Fco Monroy on 01-05-2025 MCH (RBC) [Entitic mass] 27.8 pg 27.0-32.0 [facility] Measurement, pHOrdered By: Tahira Monroy on 01-05-2025 pH (Unsp spec) 7.45 [pH] 7.35-7.45 [facility] Microbial respiratory cultur eOrdered By: Frankie Galindo on 01-05-2025 Microorganism identified Cx Nom (Unsp spec) Proteus mirabilis Abnormal [facility] Monocyte percentageOrdered B y: Fco Monroy on 01-05-2025 Monocytes/100 WBC (Bld) 7.0 % 0-10 [facility] Neutrophil percentageOrdered By: Fco Monroy on 01-05-2025 Neutrophils/100 WBC (Bld) 76.7 % High 47-70 [facility] No Panel InformationOrdered By: Fco Monroy on 01-05-2025 ART [facility] L Radial [facility] Not entered [facility] Cannula [facility] 32 U/L <38 [facility] Platelet countOrdered By: Kellen Monroy on 01-05-2025 Platelets (Bld) [#/Vol] 462 10*3/uL High 150-450 [facility] Potassium measurement (mass/ volume)Ordered By: Fco Monroy on 01-05-2025 Potassium (Unsp spec) [Mass/Vol] 4.3 mmol/L 3.3-5.1 [facility] RBC Auto (Bld) [#/Vol]Ordere d By: Fco Monroy on 01-05-2025 RBC (Bld) [#/Vol] 4.53 10*6/uL Low 4.6-6.2 [facility] Respiratory pathogens detect ion panel by molecular detection methodOrdered By: Frankie Galindo on 01-05-2025 Respiratory pathogens DNA and RNA panel ALEENA+probe (Resp) [facility] [id number] By: Frankie Galindo on 01-05-2025 SARS-CoV-2 (COVID-19) RNA ALEENA+probe Ql (Unsp spec) [facility] Serum creatinine measurement (mass/volume)Ordered By: Fco Monroy on 01-05-2025 Creatinine [Mass/Vol] 1.25 mg/dL High 0.70-1.20 [facility] Serum globulin measurementOr dered By: Fco Monroy on 01-05-2025 Globulin (S) [Mass/Vol] 3.2 g/dL 2.2-4.2 [facility] Serum glucose measurement (m ass/volume)Ordered By: Fco Monroy on 01-05-2025 Glucose [Mass/Vol] 123 mg/dL High 70-99 [facility] Serum or plasma alanine saul otransferase (ALT) measurementOrdered By: Fco Monroy on 01-05-2025 ALT [Catalytic activity/Vol] 33 U/L <47 [facility] Serum or plasma albumin luis urement (mass/volume)Ordered By: Fco Monroy on 01-05-2025 Albumin [Mass/Vol] 4.6 g/dL 3.4-4.8 [facility] Serum or plasma albumin/glob ulin mass ratioOrdered By: Fco Monroy on 01-05-2025 Albumin/Globulin [Mass ratio] 1.4 {ratio} 0.9-2.4 [facility] Serum or plasma alkaline kathleen sphatase measurementOrdered By: Fco Monroy on 01-05-2025 ALP [Catalytic activity/Vol] 83 U/L 40-129 [facility] Serum or plasma calcium luis urement (mass/volume)Ordered By: Fco Monroy on 01-05-2025 Calcium [Mass/Vol] 10.3 mg/dL 7.6-11.0 [facility] Serum or plasma urea nitroge n measurement (mass/volume)Ordered By: Fco Monroy on 01-05-2025 Urea nitrogen [Mass/Vol] 24 mg/dL High 4-19 [facility] Sodium levelOrdered By: Fco Monroy on 01-05-2025 Sodium [Moles/Vol] 135 mmol/L 133-145 [facility] Total carbon dioxide measure mentOrdered By: Fco Monroy on 01-05-2025 CO2 [Moles/Vol] 35 mmol/L [facility] Total proteinOrdered By: Fco Monroy on 01-05-2025 Protein [Mass/Vol] 7.8 g/dL 5.9-8.4 [facility] Troponin T.cardiac [Mass/vol ume] in Serum or Plasma by High sensitivity methodOrdered By: Frankie Yi on 01-05-2025 Troponin T.cardiac High sensitivity method [Mass/Vol] 22 ng/L <22 [facility] Urine Legionella pneumophila antigen detectionOrdered By: Frankie Galindo on 01-05-2025 L. pneumophila Ag Ql (U) [facility] White blood cell (WBC) count Ordered By: Fco Monroy on 01-05-2025 WBC (Bld) [#/Vol] 10.2 10*3/uL 4.4-11.0 [facility] Abdomen Single View (Portabl e)on 01-03-2025 Abdomen Single View (Portable) Normal [facility] Brain/Head without Contrasto n 01-03-2025 Brain/Head without Contrast Normal [facility] Emergency Department Summary on 01-03-2025 Emergency Department Summary Normal [facility] Pelvis 1 or 2 Viewson 2024 Pelvis 1 or 2 Views Normal [facility] Spine Cervical without Contr ason 01-03-2025 Spine Cervical without Contras Normal [facility] Anion gap in Serum or Plasma Ordered By: Lorraine Mena on 12-31-2024 Anion gap [Moles/Vol] 12 mmol/L 5-15 [facility] BUN/creatinine ratioOrdered By: Lorraine Mena on 12-31-2024 Urea nitrogen/Creatinine [Mass ratio] 21.5 mg/mg High 10-20 [facility] Bilirubin, totalOrdered By: Lorraine Mena on 12-31-2024 Bilirubin [Mass/Vol] 0.17 mg/dL 0.00-1.30 [facility] Carbon dioxide, total [Moles /volume] in Central venous bloodOrdered By: Lorraine Mena on 12-31-2024 CO2 [Moles/Vol] 30.5 mmol/L 21.0-32.0 [facility] Chloride assayOrdered By: Ledy Mena on 12-31-2024 Chloride [Moles/Vol] 95 mmol/L Low 98-108 [facility] Glomerular filtration rate ( GFR) estimation/1.73 sq m using serum, plasma, or whole bOrdered By: Lorraine Mena on 12-31-2024 GFR/1.73 sq M.predicted among non-blacks MDRD (S/P/Bld) [Vol rate/Area] 64 mL/min/{1.73_m2} >60 [facility] No Panel InformationOrdered By: Lorraine Mena on 12-31-2024 34 U/L <38 [facility] Potassium measurement (mass/ volume)Ordered By: Lorraine Mena on 12-31-2024 Potassium (Unsp spec) [Mass/Vol] 3.9 mmol/L 3.3-5.1 [facility] Serum creatinine measurement (mass/volume)Ordered By: Lorraine Mena on 12-31-2024 Creatinine [Mass/Vol] 1.19 mg/dL 0.70-1.20 [facility] Serum globulin measurementOr dered By: Lorraine Mena on 12-31-2024 Globulin (S) [Mass/Vol] 2.9 g/dL 2.2-4.2 [facility] Serum glucose measurement (m ass/volume)Ordered By: Lorraine Mena on 12-31-2024 Glucose [Mass/Vol] 110 mg/dL High 70-99 [facility] Serum or plasma alanine saul otransferase (ALT) measurementOrdered By: Lorraine Mena on 12-31-2024 ALT [Catalytic activity/Vol] 35 U/L <47 [facility] Serum or plasma albumin luis urement (mass/volume)Ordered By: Lorraine Mena on 12-31-2024 Albumin [Mass/Vol] 3.9 g/dL 3.4-4.8 [facility] Serum or plasma albumin/glob ulin mass ratioOrdered By: Lorraine Mena on 12-31-2024 Albumin/Globulin [Mass ratio] 1.3 {ratio} 0.9-2.4 [facility] Serum or plasma alkaline kathleen sphatase measurementOrdered By: Lorraine Mena 12-31-2024 ALP [Catalytic activity/Vol] 63 U/L 40-129 [facility] Serum or plasma calcium luis urement (mass/volume)Ordered By: Lorraine Mena on 12-31-2024 Calcium [Mass/Vol] 10.1 mg/dL 7.6-11.0 [facility] Serum or plasma urea nitroge n measurement (mass/volume)Ordered By: Lorraine Mena on 12-31-2024 Urea nitrogen [Mass/Vol] 26 mg/dL High 4-19 [facility] Sodium levelOrdered By: Roselyn Mena on 12-31-2024 Sodium [Moles/Vol] 138 mmol/L 133-145 [facility] Total proteinOrdered By: David Mena on 12-31-2024 Protein [Mass/Vol] 6.9 g/dL 5.9-8.4 [facility] Absolute lymphocyte countOrd ered By: Lorraine Mena on 12-30-2024 Lymphocytes Auto (Unsp spec) [#/Vol] 1.08 10*3/uL 0.83-4.51 [facility] Anion gap in Serum or Plasma Ordered By: Lorraine Mena on 12-30-2024 Anion gap [Moles/Vol] 17 mmol/L High 5-15 [facility] Automated lymphocyte count a s percentage of total leukocytesOrdered By: Lorraine Mena on 12-30-2024 Lymphocytes/100 WBC Auto (Unsp spec) 14.4 % Low 19-41 [facility] BUN/creatinine ratioOrdered By: Lorraine Mena on 12-30-2024 Urea nitrogen/Creatinine [Mass ratio] 20.3 mg/mg High 10-20 [facility] Basophil percentageOrdered B y: Lorraine Mena on 12-30-2024 Basophils/100 WBC (Bld) 0.7 % 0-1 [facility] Bilirubin, totalOrdered By: Lorraine Mena on 12-30-2024 Bilirubin [Mass/Vol] 0.18 mg/dL 0.00-1.30 [facility] Carbon dioxide, total [Moles /volume] in Central venous bloodOrdered By: Lorraine Mena on 12-30-2024 CO2 [Moles/Vol] 28.7 mmol/L 21.0-32.0 [facility] Chloride assayOrdered By: Ledy roelorri Mena on 12-30-2024 Chloride [Moles/Vol] 94 mmol/L Low 98-108 [facility] Eosinophil percentageOrdered By: Lorraine Christinebandaremi on 12-30-2024 Eosinophils/100 WBC (Bld) 0.8 % 0-5 [facility] Erythrocyte distribution wid th ratioOrdered By: Lorraine Mena on 12-30-2024 Erythrocyte distribution width (RBC) [Ratio] 15.0 % High 11.6-14.6 [facility] Erythrocyte distribution wid th standard deviationOrdered By: Lorraine Mena on 12-30-2024 Erythrocyte distribution width (RBC) [Ratio] 47.7 fl High 35.1-43.9 [facility] Glomerular filtration rate ( GFR) estimation/1.73 sq m using serum, plasma, or whole bOrdered By: Lorraine Mena on 12-30-2024 GFR/1.73 sq M.predicted among non-blacks MDRD (S/P/Bld) [Vol rate/Area] 64 mL/min/{1.73_m2} >60 [facility] Hematocrit Auto (Bld) [Volum e fraction]Ordered By: Lorraine Mena on 12-30-2024 Hematocrit (Bld) [Volume fraction] 36.1 % Low 40-54 [facility] Hemoglobin measurementOrdere d By: Lorraine Mena on 12-30-2024 Hemoglobin (Bld) [Mass/Vol] 11.3 g/dL Low 13.0-16.5 [facility] Immature granulocytes/100 WB C Auto (Bld)Ordered By: Lorraine Mena on 12-30-2024 Immature granulocytes/100 WBC (Bld) 0.300 % 0.0-0.9 [facility] MCV (mean corpuscular volume ) determinationOrdered By: Lorraine Mena on 12-30-2024 MCV (RBC) [Entitic vol] 88.3 fL 80-94 [facility] Mean corpuscular hemoglobin (MCH) determinationOrdered By: Lorraine Mena on 12-30-2024 MCH (RBC) [Entitic mass] 27.6 pg 27.0-32.0 [facility] Monocyte percentageOrdered B y: Lorraine Mena on 12-30-2024 Monocytes/100 WBC (Bld) 9.6 % 0-10 [facility] Neutrophil percentageOrdered By: Lorraine Mena on 12-30-2024 Neutrophils/100 WBC (Bld) 74.2 % High 47-70 [facility] No Panel InformationOrdered By: Lorraine Mena on 12-30-2024 34 U/L <38 [facility] Platelet countOrdered By: Ledy Mena on 12-30-2024 Platelets (Bld) [#/Vol] 353 10*3/uL 150-450 [facility] Potassium measurement (mass/ volume)Ordered By: Lorraine Mena on 12-30-2024 Potassium (Unsp spec) [Mass/Vol] 4.2 mmol/L 3.3-5.1 [facility] RBC Auto (Bld) [#/Vol]Ordere d By: Lorraine Mena on 12-30-2024 RBC (Bld) [#/Vol] 4.09 10*6/uL Low 4.6-6.2 [facility] Serum creatinine measurement (mass/volume)Ordered By: Lorraine Mena on 12-30-2024 Creatinine [Mass/Vol] 1.19 mg/dL 0.70-1.20 [facility] Serum globulin measurementOr dered By: Lorraine Mena on 12-30-2024 Globulin (S) [Mass/Vol] 2.2 g/dL 2.2-4.2 [facility] Serum glucose measurement (m ass/volume)Ordered By: Lorraine Mena on 12-30-2024 Glucose [Mass/Vol] 105 mg/dL High 70-99 [facility] Serum or plasma alanine saul otransferase (ALT) measurementOrdered By: Lorraine Mena on 12-30-2024 ALT [Catalytic activity/Vol] 34 U/L <47 [facility] Serum or plasma albumin luis urement (mass/volume)Ordered By: Lorraine Mena on 12-30-2024 Albumin [Mass/Vol] 4.0 g/dL 3.4-4.8 [facility] Serum or plasma albumin/glob ulin mass ratioOrdered By: Lorraine Mena on 12-30-2024 Albumin/Globulin [Mass ratio] 1.8 {ratio} 0.9-2.4 [facility] Serum or plasma alkaline kathleen sphatase measurementOrdered By: Lorraine Mena on 12-30-2024 ALP [Catalytic activity/Vol] 62 U/L 40-129 [facility] Serum or plasma calcium luis urement (mass/volume)Ordered By: Lorraine Mena on 12-30-2024 Calcium [Mass/Vol] 9.8 mg/dL 7.6-11.0 [facility] Serum or plasma carbamazepin e level (mass/volume)Ordered By: Lorraine Mena on 12-30-2024 carBAMazepine [Mass/Vol] 10.8 ug/mL 4.0-12.0 [facility] Serum or plasma urea nitroge n measurement (mass/volume)Ordered By: Lorraine Mena on 12-30-2024 Urea nitrogen [Mass/Vol] 24 mg/dL High 4-19 [facility] Sodium levelOrdered By: Roselyn Mena on 12-30-2024 Sodium [Moles/Vol] 140 mmol/L 133-145 [facility] Total proteinOrdered By: David Mena on 12-30-2024 Protein [Mass/Vol] 6.3 g/dL 5.9-8.4 [facility] White blood cell (WBC) count Ordered By: Lorraine Mena on 12-30-2024 WBC (Bld) [#/Vol] 7.5 10*3/uL 4.4-11.0 [facility] Absolute lymphocyte countOrd ered By: Shilpa Contreras on 12-26-2024 Lymphocytes Auto (Unsp spec) [#/Vol] 0.66 10*3/uL Low 0.83-4.51 [facility] Anion gap in Serum or Plasma Ordered By: Shilpa Contreras on 12-26-2024 Anion gap [Moles/Vol] 12 mmol/L 5-15 [facility] Automated lymphocyte count a s percentage of total leukocytesOrdered By: Shilpa Ben on 12-26-2024 Lymphocytes/100 WBC Auto (Unsp spec) 6.5 % Low 19-41 [facility] BUN/creatinine ratioOrdered By: Shilpa Ben on 12-26-2024 Urea nitrogen/Creatinine [Mass ratio] 14.4 mg/mg 10-20 [facility] Basophil percentageOrdered B y: Shilpa Ben on 12-26-2024 Basophils/100 WBC (Bld) 0.3 % 0- [facility] Bilirubin, totalOrdered By: Shilpa Ben on 12-26-2024 Bilirubin [Mass/Vol] 0.23 mg/dL 0.00-1.30 [facility] CBC W/Diff, Automatedon 12-17 Absolute Lymph 0.66 X10 3/uL Low 0.83-4.51 [facility] Comment on above: Performed By: #### L 500.4050, L100.0100 ####[facility] [address] [place], [address] Absolute Neut 8.7 X10 3/uL High 2.0-7.7 [facility] Comment on above: Performed By: #### L 500.4050, L100.0100 ####[facility] [address] [place], [address] Basophils/100 WBC (Bld) 0.3 % Normal 0-1 [facility] Comment on above: Performed By: #### L 500.4050, L100.0100 ####[facility] [address] [place], [address] Eosinophils/100 WBC (Bld) 0.2 % Normal 0-5 [facility] Comment on above: Performed By: #### L 500.4050, L100.0100 ####[facility] [address] [place], [address] Erythrocyte distribution width (RBC) [Ratio] 14.7 % High 11.6-14.6 [facility] Comment on above: Performed By: #### L 500.4050, L100.0100 ####[facility] [address] [place], [address] Hematocrit (Bld) [Volume fraction] 35.8 % Low 40-54 [facility] Comment on above: Performed By: #### L 500.4050, L100.0100 ####[facility] [address] [place], [address] Hemoglobin (Bld) [Mass/Vol] 11.3 g/dL Low 13.0-16.5 [facility] Comment on above: Performed By: #### L 500.4050, L100.0100 ####[facility] [address] [place], [address] IG% 0.500 Normal 0.0-0.9 [facility] Comment on above: Result Comment: IG% - Immature Granulocytes (promyelocytes, myelocytes andmetamyelocytes) > 1% indicates that a LEFT SHIFT is Present. Performed By: #### L 500.4050, L100.0100 ####[facility] [address] [place], [address] Lymphocytes/100 WBC (Bld) 6.5 % Low 19-41 [facility] Comment on above: Performed By: #### L 500.4050, L100.0100 ####[facility] [address] [place], [address] MCH (RBC) [Entitic mass] 27.6 pg Normal 27.0-32.0 [facility] Comment on above: Performed By: #### L 500.4050, L100.0100 ####[facility] [address] [place], [address] MCHC (RBC) [Mass/Vol] 31.6 g/dL Low 32-36 [facility] Comment on above: Performed By: #### L 500.4050, L100.0100 ####[facility] [address] [place], [address] MCV (RBC) [Entitic vol] 87.3 fL Normal 80-94 [facility] Comment on above: Performed By: #### L 500.4050, L100.0100 ####[facility] [address] [place], [address] Monocytes/100 WBC (Bld) 7.8 % Normal 0-10 [facility] Comment on above: Performed By: #### L 500.4050, L100.0100 ####[facility] [address] [place], [address] Neutrophils/100 WBC (Bld) 84.7 % High 47-70 [facility] Comment on above: Performed By: #### L 500.4050, L100.0100 ####[facility] [address] [place], [address] Nucleated RBC (Bld) [#/Vol] 0 10*3/uL Normal 0-5 [facility] Comment on above: Performed By: #### L 500.4050, L100.0100 ####[facility] [address] [place], [address] Platelet mean volume (Bld) [Entitic vol] 10.1 fL Normal 6.2-12.0 [facility] Comment on above: Performed By: #### L 500.4050, L100.0100 ####[facility] [address] [place], [address] Platelets (Bld) [#/Vol] 363 10*3/uL Normal 150-450 [facility] Comment on above: Performed By: #### L 500.4050, L100.0100 ####[facility] [address] [place], [address] RBC (Bld) [#/Vol] 4.10 10*6/uL Low 4.6-6.2 [facility] Comment on above: Performed By: #### L 500.4050, L100.0100 ####[facility] [address] [place], [address] RDW SD 46.5 fl High 35.1-43.9 [facility] Comment on above: Performed By: #### L 500.4050, L100.0100 ####[facility] [address] [place], [address] WBC (Bld) [#/Vol] 10.2 10*3/uL Normal 4.4-11.0 [facility] Comment on above: Performed By: #### L 500.4050, L100.0100 ####[facility] [address] [place], [address] Carbon dioxide, total [Moles /volume] in Central venous bloodOrdered By: Shilpa Ben on 12-26-2024 CO2 [Moles/Vol] 30.3 mmol/L 21.0-32.0 [facility] Chloride assayOrdered By: Kisha solares Ben on 12-26-2024 Chloride [Moles/Vol] 98 mmol/L 98-108 [facility] Comprehensive Metabolic Prof ilon 12-26-2024 Albumin [Mass/Vol] 3.7 g/dL Normal 3.4-4.8 [facility] Comment on above: Performed By: #### L 500.4050, L100.0100 ####[facility] [address] [place], [address] Albumin/Globulin [Mass ratio] 1.6 {ratio} Normal 0.9-2.4 [facility] Comment on above: Performed By: #### L 500.4050, L100.0100 ####[facility] [address] [place], [address] ALK PHOS 67 U/L Normal 40-129 [facility] Comment on above: Performed By: #### L 500.4050, L100.0100 ####[facility] [address] [place], [address] ALT [Catalytic activity/Vol] 19 U/L Normal <=46 [facility] Comment on above: Performed By: #### L 500.4050, L100.0100 ####[facility] [address] [place], [address] AST [Catalytic activity/Vol] 22 U/L Normal <=37 [facility] Comment on above: Performed By: #### L 500.4050, L100.0100 ####[facility] [address] [place], [address] Bilirubin [Mass/Vol] 0.23 mg/dL Normal 0.00-1.30 [facility] Comment on above: Performed By: #### L 500.4050, L100.0100 ####[facility] [address] [place], [address] BUN/CRE 14.4 RATIO Normal 10-20 [facility] Comment on above: Performed By: #### L 500.4050, L100.0100 ####[facility] [address] [place], [address] Calcium [Mass/Vol] 9.7 mg/dL Normal 7.6-11.0 [facility] Comment on above: Performed By: #### L 500.4050, L100.0100 ####[facility] [address] [place], [address] Chloride [Moles/Vol] 98 mmol/L Normal 98-108 [facility] Comment on above: Performed By: #### L 500.4050, L100.0100 ####[facility] [address] [place], [address] CO2 [Moles/Vol] 30.3 mmol/L Normal 21.0-32.0 [facility] Comment on above: Performed By: #### L 500.4050, L100.0100 ####[facility] [address] [place], [address] Creatinine [Mass/Vol] 1.07 mg/dL Normal 0.70-1.20 [facility] Comment on above: Performed By: #### L 500.4050, L100.0100 ####[facility] [address] [place], [address] ECRCL 57.71 ml/min Normal 50-250 [facility] Comment on above: Performed By: #### L 500.4050, L100.0100 ####[facility] [address] [place], [address] GAP 12 Normal 5-15 [facility] Comment on above: Performed By: #### L 500.4050, L100.0100 ####[facility] [address] [place], [address] GFR/1.73 sq M.predicted among non-blacks MDRD (S/P/Bld) [Vol rate/Area] 72 mL/min/{1.73_m2} Normal >60 [facility] Comment on above: Result Comment: mL/m in/1.73m2 CKD-EPI Creatinine Equation (2020) Performed By: #### L 500.4050, L100.0100 ####[facility] [address] [place], [address] Globulin (S) [Mass/Vol] 2.3 g/dL Normal 2.2-4.2 [facility] Comment on above: Performed By: #### L 500.4050, L100.0100 ####[facility] [address] [place], [address] Glucose [Mass/Vol] 142 mg/dL High 70-99 [facility] Comment on above: Performed By: #### L 500.4050, L100.0100 ####[facility] [address] [place], [address] Potassium [Moles/Vol] 3.4 mmol/L Normal 3.3-5.1 [facility] Comment on above: Performed By: #### L 500.4050, L100.0100 ####[facility] [address] [place], [address] Sodium [Moles/Vol] 140 mmol/L Normal 133-145 [facility] Comment on above: Performed By: #### L 500.4050, L100.0100 ####[facility] [address] [place], [address] T PROT 6.0 g/dL Normal 5.9-8.4 [facility] Comment on above: Performed By: #### L 500.4050, L100.0100 ####[facility] [address] [place], [place], [id number] Urea nitrogen [Mass/Vol] 15 mg/dL Normal 4-19 [facility] Comment on above: Performed By: #### L 500.4050, L100.0100 ####[facility] [address] [place], [place], [id number] Eosinophil percentageOrdered By: Shilpa Contreras on 12-26-2024 Eosinophils/100 WBC (Bld) 0.2 % 0-5 [facility] Erythrocyte distribution wid th ratioOrdered By: Ben on 12-26-2024 Erythrocyte distribution width (RBC) [Ratio] 14.7 % High 11.6-14.6 [facility] Erythrocyte distribution wid th standard deviationOrdered By: Shilpa Ben on 12-26-2024 Erythrocyte distribution width (RBC) [Ratio] 46.5 fl High 35.1-43.9 [facility] Glomerular filtration rate ( GFR) estimation/1.73 sq m using serum, plasma, or whole bOrdered By: Shilpa Ben on 12-26-2024 GFR/1.73 sq M.predicted among non-blacks MDRD (S/P/Bld) [Vol rate/Area] 72 mL/min/{1.73_m2} >60 [facility] Hematocrit Auto (Bld) [Volum e fraction]Ordered By: Shilpa Contreras 12-26-2024 Hematocrit (Bld) [Volume fraction] 35.8 % Low 40-54 [facility] Hemoglobin measurementOrdere d By: Shilpa Contreras on 12-26-2024 Hemoglobin (Bld) [Mass/Vol] 11.3 g/dL Low 13.0-16.5 [facility] Immature granulocytes/100 WB C Auto (Bld)Ordered By: Shilpa Ben 12-26-2024 Immature granulocytes/100 WBC (Bld) 0.500 % 0.0-0.9 [facility] MCV (mean corpuscular volume ) determinationOrdered By: Shilpa Contreras 12-26-2024 MCV (RBC) [Entitic vol] 87.3 fL 80-94 [facility] Mean corpuscular hemoglobin (MCH) determinationOrdered By: Shilpa Contreras on 12-26-2024 MCH (RBC) [Entitic mass] 27.6 pg 27.0-32.0 [facility] Monocyte percentageOrdered B y: Shilpa Contreras on 12-26-2024 Monocytes/100 WBC (Bld) 7.8 % 0-10 [facility] Neutrophil percentageOrdered By: Shilpa Ben on 12-26-2024 Neutrophils/100 WBC (Bld) 84.7 % High 47-70 [facility] No Panel InformationOrdered By: Shilpa Contreras on 12-26-2024 22 U/L <38 [facility] Platelet countOrdered By: Kisha solares Ben on 12-26-2024 Platelets (Bld) [#/Vol] 363 10*3/uL 150-450 [facility] Potassium measurement (mass/ volume)Ordered By: Shilpa Contreras on 12-26-2024 Potassium (Unsp spec) [Mass/Vol] 3.4 mmol/L 3.3-5.1 [facility] RBC Auto (Bld) [#/Vol]Ordere d By: Shilpa Contreras on 12-26-2024 RBC (Bld) [#/Vol] 4.10 10*6/uL Low 4.6-6.2 [facility] Serum creatinine measurement (mass/volume)Ordered By: Shilpa Contreras on 12-26-2024 Creatinine [Mass/Vol] 1.07 mg/dL 0.70-1.20 [facility] Serum globulin measurementOr dered By: Shilpa Contreras 12-26-2024 Globulin (S) [Mass/Vol] 2.3 g/dL 2.2-4.2 [facility] Serum glucose measurement (m ass/volume)Ordered By: Shilpa Contreras 12-26-2024 Glucose [Mass/Vol] 142 mg/dL High 70-99 [facility] Serum or plasma alanine saul otransferase (ALT) measurementOrdered By: Shilpa Contreras 12-26-2024 ALT [Catalytic activity/Vol] 19 U/L <47 [facility] Serum or plasma albumin luis urement (mass/volume)Ordered By: Shilpa Contreras on 12-26-2024 Albumin [Mass/Vol] 3.7 g/dL 3.4-4.8 [facility] Serum or plasma albumin/glob ulin mass ratioOrdered By: Shilpa Contreras on 12-26-2024 Albumin/Globulin [Mass ratio] 1.6 {ratio} 0.9-2.4 [facility] Serum or plasma alkaline kathleen sphatase measurementOrdered By: Shilpa Ben on 12-26-2024 ALP [Catalytic activity/Vol] 67 U/L 40-129 [facility] Serum or plasma calcium luis urement (mass/volume)Ordered By: Shilpa Contreras on 12-26-2024 Calcium [Mass/Vol] 9.7 mg/dL 7.6-11.0 [facility] Serum or plasma urea nitroge n measurement (mass/volume)Ordered By: Shilpa Contreras on 12-26-2024 Urea nitrogen [Mass/Vol] 15 mg/dL 4-19 [facility] Sodium levelOrdered By: Rovertou mn Ben on 12-26-2024 Sodium [Moles/Vol] 140 mmol/L 133-145 [facility] Total proteinOrdered By: Roverto umn Ben on 12-26-2024 Protein [Mass/Vol] 6.0 g/dL 5.9-8.4 [facility] White blood cell (WBC) count Ordered By: Shilpa Contreras on 12-26-2024 WBC (Bld) [#/Vol] 10.2 10*3/uL 4.4-11.0 [facility] CBC W/Diff, Automatedon 07-0 Absolute Lymph 0.96 X10 3/uL Normal 0.83-4.51 [facility] Comment on above: Performed By: #### L 501.5200, L100.0100, L500.4050 ####[facility] [address] [place], [address] Absolute Neut 9.8 X10 3/uL High 2.0-7.7 [facility] Comment on above: Performed By: #### L 501.5200, L100.0100, L500.4050 ####[facility] [address] [place], [address] Basophils/100 WBC (Bld) 0.3 % Normal 0-1 [facility] Comment on above: Performed By: #### L 501.5200, L100.0100, L500.4050 ####[facility] [address] [place], [address] Eosinophils/100 WBC (Bld) 0.3 % Normal 0-5 [facility] Comment on above: Performed By: #### L 501.5200, L100.0100, L500.4050 ####[facility] [address] [place], [address] Erythrocyte distribution width (RBC) [Ratio] 14.5 % Normal 11.6-14.6 [facility] Comment on above: Performed By: #### L 501.5200, L100.0100, L500.4050 ####[facility] [address] [place], [address] Hematocrit (Bld) [Volume fraction] 40.5 % Normal 40-54 [facility] Comment on above: Performed By: #### L 501.5200, L100.0100, L500.4050 ####[facility] [address] [place], [address] Hemoglobin (Bld) [Mass/Vol] 12.5 g/dL Low 13.0-16.5 [facility] Comment on above: Performed By: #### L 501.5200, L100.0100, L500.4050 ####[facility] [address] [place], [address] IG% 0.700 Normal 0.0-0.9 [facility] Comment on above: Result Comment: IG% - Immature Granulocytes (promyelocytes, myelocytes andmetamyelocytes) > 1% indicates that a LEFT SHIFT is Present. Performed By: #### L 501.5200, L100.0100, L500.4050 ####[facility] [address] [place], [address] Lymphocytes/100 WBC (Bld) 8.0 % Low 19-41 [facility] Comment on above: Performed By: #### L 501.5200, L100.0100, L500.4050 ####[facility] [address] [place], [address] MCH (RBC) [Entitic mass] 27.4 pg Normal 27.0-32.0 [facility] Comment on above: Performed By: #### L 501.5200, L100.0100, L500.4050 ####[facility] [address] [place], [address] MCHC (RBC) [Mass/Vol] 30.9 g/dL Low 32-36 [facility] Comment on above: Performed By: #### L 501.5200, L100.0100, L500.4050 ####[facility] [address] [place], [address] MCV (RBC) [Entitic vol] 88.6 fL Normal 80-94 [facility] Comment on above: Performed By: #### L 501.5200, L100.0100, L500.4050 ####[facility] [address] [place], [address] Monocytes/100 WBC (Bld) 8.4 % Normal 0-10 [facility] Comment on above: Performed By: #### L 501.5200, L100.0100, L500.4050 ####[facility] [address] [place], [address] Neutrophils/100 WBC (Bld) 82.3 % High 47-70 [facility] Comment on above: Performed By: #### L 501.5200, L100.0100, L500.4050 ####[facility] [address] [place], [address] Nucleated RBC (Bld) [#/Vol] 0 10*3/uL Normal 0-5 [facility] Comment on above: Performed By: #### L 501.5200, L100.0100, L500.4050 ####[facility] [address] [place], [address] Platelet mean volume (Bld) [Entitic vol] 10.2 fL Normal 6.2-12.0 [facility] Comment on above: Performed By: #### L 501.5200, L100.0100, L500.4050 ####[facility] [address] [place], [address] Platelets (Bld) [#/Vol] 449 10*3/uL Normal 150-450 [facility] Comment on above: Performed By: #### L 501.5200, L100.0100, L500.4050 ####[facility] [address] [place], [address] RBC (Bld) [#/Vol] 4.57 10*6/uL Low 4.6-6.2 [facility] Comment on above: Performed By: #### L 501.5200, L100.0100, L500.4050 ####[facility] [address] [place], [address] RDW SD 45.9 fl High 35.1-43.9 [facility] Comment on above: Performed By: #### L 501.5200, L100.0100, L500.4050 ####[facility] [address] [place], [address] WBC (Bld) [#/Vol] 12.0 10*3/uL High 4.4-11.0 [facility] Comment on above: Performed By: #### L 501.5200, L100.0100, L500.4050 ####[facility] [address] [place], [address] Comprehensive Metabolic Prof il12-25-2024 Albumin [Mass/Vol] 4.0 g/dL Normal 3.4-4.8 [facility] Comment on above: Performed By: #### L 501.5200, L100.0100, L500.4050 ####[facility] [address] [place], [address] Albumin/Globulin [Mass ratio] 1.5 {ratio} Normal 0.9-2.4 [facility] Comment on above: Performed By: #### L 501.5200, L100.0100, L500.4050 ####[facility] [address] [place], [address] ALK PHOS 74 U/L Normal 40-129 [facility] Comment on above: Performed By: #### L 501.5200, L100.0100, L500.4050 ####[facility] [address] [place], [address] ALT [Catalytic activity/Vol] 22 U/L Normal <=46 [facility] Comment on above: Performed By: #### L 501.5200, L100.0100, L500.4050 ####[facility] [address] [place], [address] AST [Catalytic activity/Vol] 31 U/L Normal <=37 [facility] Comment on above: Performed By: #### L 501.5200, L100.0100, L500.4050 ####[facility] [address] [place], [address] Bilirubin [Mass/Vol] 0.23 mg/dL Normal 0.00-1.30 [facility] Comment on above: Performed By: #### L 501.5200, L100.0100, L500.4050 ####[facility] [address] [place], [address] BUN/CRE 13.4 RATIO Normal 10-20 [facility] Comment on above: Performed By: #### L 501.5200, L100.0100, L500.4050 ####[facility] [address] [place], [address] Calcium [Mass/Vol] 9.5 mg/dL Normal 7.6-11.0 [facility] Comment on above: Performed By: #### L 501.5200, L100.0100, L500.4050 ####[facility] [address] [place], [address] Chloride [Moles/Vol] 101 mmol/L Normal 98-108 [facility] Comment on above: Performed By: #### L 501.5200, L100.0100, L500.4050 ####[facility] [address] [place], [address] CO2 [Moles/Vol] 27.5 mmol/L Normal 21.0-32.0 [facility] Comment on above: Performed By: #### L 501.5200, L100.0100, L500.4050 ####[facility] [address] [place], [address] Creatinine [Mass/Vol] 1.05 mg/dL Normal 0.70-1.20 [facility] Comment on above: Performed By: #### L 501.5200, L100.0100, L500.4050 ####[facility] [address] [place], [address] ECRCL 58.81 ml/min Normal 50-250 [facility] Comment on above: Performed By: #### L 501.5200, L100.0100, L500.4050 ####[facility] [address] [place], [address] GAP 12 Normal 5-15 [facility] Comment on above: Performed By: #### L 501.5200, L100.0100, L500.4050 ####[facility] [address] [place], [address] GFR/1.73 sq M.predicted among non-blacks MDRD (S/P/Bld) [Vol rate/Area] 74 mL/min/{1.73_m2} Normal >60 [facility] Comment on above: Result Comment: mL/m in/1.73m2 CKD-EPI Creatinine Equation (2020) Performed By: #### L 501.5200, L100.0100, L500.4050 ####[facility] [address] [place], [address] Globulin (S) [Mass/Vol] 2.7 g/dL Normal 2.2-4.2 [facility] Comment on above: Performed By: #### L 501.5200, L100.0100, L500.4050 ####[facility] [address] [place], [address] Glucose [Mass/Vol] 118 mg/dL High 70-99 [facility] Comment on above: Performed By: #### L 501.5200, L100.0100, L500.4050 ####[facility] [address] [place], [address] Potassium [Moles/Vol] 3.3 mmol/L Normal 3.3-5.1 [facility] Comment on above: Performed By: #### L 501.5200, L100.0100, L500.4050 ####[facility] [address] [place], [address] Sodium [Moles/Vol] 141 mmol/L Normal 133-145 [facility] Comment on above: Performed By: #### L 501.5200, L100.0100, L500.4050 ####[facility] [address] [place], [address] T PROT 6.7 g/dL Normal 5.9-8.4 [facility] Comment on above: Performed By: #### L 501.5200, L100.0100, L500.4050 ####[facility] [address] [place], [address] Urea nitrogen [Mass/Vol] 14 mg/dL Normal 4-19 [facility] Comment on above: Performed By: #### L 501.5200, L100.0100, L500.4050 ####[facility] [address] [place], [address] Magnesiumon 12-25-2024 Magnesium [Mass/Vol] 2.3 mg/dL High 1.5-2.2 [facility] Comment on above: Performed By: #### L 501.5200, L100.0100, L500.4050 ####[facility] [address] [place], [address] Magnesium measurement (mass/ volume)Ordered By: Sania Peña on 12-25-2024 Magnesium (Unsp spec) [Mass/Vol] 2.3 mg/dL High 1.5-2.2 [facility] Phosphoruson 12-25-2024 Phosphate [Mass/Vol] 2.0 mg/dL Low 2.7-4.5 [facility] Comment on above: Performed By: #### L 501.2300 ####[facility] [address] [place], [address] CBC W/Diff, Automatedon 07-0 Absolute Lymph 0.72 X10 3/uL Low 0.83-4.51 [facility] Comment on above: Performed By: #### L 100.0100, L500.4050 ####[facility] [address] [place], [address] Absolute Neut 7.0 X10 3/uL Normal 2.0-7.7 [facility] Comment on above: Performed By: #### L 100.0100, L500.4050 ####[facility] [address] [place], [address] Basophils/100 WBC (Bld) 0.5 % Normal 0-1 [facility] Comment on above: Performed By: #### L 100.0100, L500.4050 ####[facility] [address] [place], [address] Eosinophils/100 WBC (Bld) 0.4 % Normal 0-5 [facility] Comment on above: Performed By: #### L 100.0100, L500.4050 ####[facility] [address] [place], [address] Erythrocyte distribution width (RBC) [Ratio] 14.6 % Normal 11.6-14.6 [facility] Comment on above: Performed By: #### L 100.0100, L500.4050 ####[facility] [address] [place], [address] Hematocrit (Bld) [Volume fraction] 37.0 % Low 40-54 [facility] Comment on above: Performed By: #### L 100.0100, L500.4050 ####[facility] [address] [place], [address] Hemoglobin (Bld) [Mass/Vol] 11.5 g/dL Low 13.0-16.5 [facility] Comment on above: Performed By: #### L 100.0100, L500.4050 ####[facility] [address] [place], [address] IG% 0.500 Normal 0.0-0.9 [facility] Comment on above: Result Comment: IG% - Immature Granulocytes (promyelocytes, myelocytes andmetamyelocytes) > 1% indicates that a LEFT SHIFT is Present. Performed By: #### L 100.0100, L500.4050 ####[facility] [address] [place], [address] Lymphocytes/100 WBC (Bld) 8.5 % Low 19-41 [facility] Comment on above: Performed By: #### L 100.0100, L500.4050 ####[facility] [address] [place], [address] MCH (RBC) [Entitic mass] 27.7 pg Normal 27.0-32.0 [facility] Comment on above: Performed By: #### L 100.0100, L500.4050 ####[facility] [address] [place], [address] MCHC (RBC) [Mass/Vol] 31.1 g/dL Low 32-36 [facility] Comment on above: Performed By: #### L 100.0100, L500.4050 ####[facility] [address] [place], [address] MCV (RBC) [Entitic vol] 89.2 fL Normal 80-94 [facility] Comment on above: Performed By: #### L 100.0100, L500.4050 ####[facility] [address] [place], [address] Monocytes/100 WBC (Bld) 7.7 % Normal 0-10 [facility] Comment on above: Performed By: #### L 100.0100, L500.4050 ####[facility] [address] [place], [address] Neutrophils/100 WBC (Bld) 82.4 % High 47-70 [facility] Comment on above: Performed By: #### L 100.0100, L500.4050 ####[facility] [address] [place], [address] Nucleated RBC (Bld) [#/Vol] 0 10*3/uL Normal 0-5 [facility] Comment on above: Performed By: #### L 100.0100, L500.4050 ####[facility] [address] [place], [address] Platelet mean volume (Bld) [Entitic vol] 9.7 fL Normal 6.2-12.0 [facility] Comment on above: Performed By: #### L 100.0100, L500.4050 ####[facility] [address] [place], [address] Platelets (Bld) [#/Vol] 380 10*3/uL Normal 150-450 [facility] Comment on above: Performed By: #### L 100.0100, L500.4050 ####[facility] [address] [place], [address] RBC (Bld) [#/Vol] 4.15 10*6/uL Low 4.6-6.2 [facility] Comment on above: Performed By: #### L 100.0100, L500.4050 ####[facility] [address] [place], [address] RDW SD 46.6 fl High 35.1-43.9 [facility] Comment on above: Performed By: #### L 100.0100, L500.4050 ####[facility] [address] [place], [address] WBC (Bld) [#/Vol] 8.5 10*3/uL Normal 4.4-11.0 [facility] Comment on above: Performed By: #### L 100.0100, L500.4050 ####[facility] [address] [place], [address] Comprehensive Metabolic Prof [facility] 12-24-2024 Albumin [Mass/Vol] 3.8 g/dL Normal 3.4-4.8 [facility] Comment on above: Performed By: #### L 100.0100, L500.4050 ####[facility] [address] [place], [address] Albumin/Globulin [Mass ratio] 1.8 {ratio} Normal 0.9-2.4 [facility] Comment on above: Performed By: #### L 100.0100, L500.4050 ####[facility] [address] [place], [address] ALK PHOS 64 U/L Normal 40-129 [facility] Comment on above: Performed By: #### L 100.0100, L500.4050 ####[facility] [address] [place], [address] ALT [Catalytic activity/Vol] 28 U/L Normal <=46 [facility] Comment on above: Performed By: #### L 100.0100, L500.4050 ####[facility] [address] [place], [address] AST [Catalytic activity/Vol] 23 U/L Normal <=37 [facility] Comment on above: Performed By: #### L 100.0100, L500.4050 ####[facility] [address] [place], [address] Bilirubin [Mass/Vol] 0.25 mg/dL Normal 0.00-1.30 [facility] Comment on above: Performed By: #### L 100.0100, L500.4050 ####[facility] [address] [place], [address] BUN/CRE 16.9 RATIO Normal 10-20 [facility] Comment on above: Performed By: #### L 100.0100, L500.4050 ####[facility] [address] [place], [address] Calcium [Mass/Vol] 8.4 mg/dL Normal 7.6-11.0 [facility] Comment on above: Performed By: #### L 100.0100, L500.4050 ####[facility] [address] [place], [address] Chloride [Moles/Vol] 106 mmol/L Normal 98-108 [facility] Comment on above: Performed By: #### L 100.0100, L500.4050 ####[facility] [address] [place], [address] CO2 [Moles/Vol] 23.1 mmol/L Normal 21.0-32.0 [facility] Comment on above: Performed By: #### L 100.0100, L500.4050 ####[facility] [address] [place], [address] Creatinine [Mass/Vol] 0.98 mg/dL Normal 0.70-1.20 [facility] Comment on above: Performed By: #### L 100.0100, L500.4050 ####[facility] [address] [place], [address] ECRCL 63.01 ml/min Normal 50-250 [facility] Comment on above: Performed By: #### L 100.0100, L500.4050 ####[facility] [address] [place], [address] GAP 11 Normal 5-15 [facility] Comment on above: Performed By: #### L 100.0100, L500.4050 ####[facility] [address] [place], [address] GFR/1.73 sq M.predicted among non-blacks MDRD (S/P/Bld) [Vol rate/Area] 81 mL/min/{1.73_m2} Normal >60 [facility] Comment on above: Result Comment: mL/m in/1.73m2 CKD-EPI Creatinine Equation (2020) Performed By: #### L 100.0100, L500.4050 ####[facility] [address] [place], [address] Globulin (S) [Mass/Vol] 2.2 g/dL Normal 2.2-4.2 [facility] Comment on above: Performed By: #### L 100.0100, L500.4050 ####[facility] [address] [place], [address] Glucose [Mass/Vol] 92 mg/dL Normal 70-99 [facility] Comment on above: Performed By: #### L 100.0100, L500.4050 ####[facility] [address] [place], [address] Potassium [Moles/Vol] 3.9 mmol/L Normal 3.3-5.1 [facility] Comment on above: Performed By: #### L 100.0100, L500.4050 ####[facility] [address] [place], [address] Sodium [Moles/Vol] 140 mmol/L Normal 133-145 [facility] Comment on above: Performed By: #### L 100.0100, L500.4050 ####[facility] [address] [place], [address] T PROT 6.0 g/dL Normal 5.9-8.4 [facility] Comment on above: Performed By: #### L 100.0100, L500.4050 ####[facility] [address] [place], [address] Urea nitrogen [Mass/Vol] 17 mg/dL Normal 4-19 [facility] Comment on above: Performed By: #### L 100.0100, L500.4050 ####[facility] [address] [place], [address] Basic Metabolic Profile (BMP )on 12-23-2024 BUN/CRE 16.4 RATIO Normal 10-20 [facility] Comment on above: Performed By: #### L 500.2500, L100.0500 ####[facility] [address] [place], [address] Calcium [Mass/Vol] 8.4 mg/dL Normal 7.6-11.0 [facility] Comment on above: Performed By: #### L 500.2500, L100.0500 ####[facility] [address] [place], [address] Chloride [Moles/Vol] 104 mmol/L Normal 98-108 [facility] Comment on above: Performed By: #### L 500.2500, L100.0500 ####[facility] [address] [place], [address] CO2 [Moles/Vol] 24.1 mmol/L Normal 21.0-32.0 [facility] Comment on above: Performed By: #### L 500.2500, L100.0500 ####[facility] [address] [place], [address] Creatinine [Mass/Vol] 1.02 mg/dL Normal 0.70-1.20 [facility] Comment on above: Performed By: #### L 500.2500, L100.0500 ####[facility] [address] [place], [address] ECRCL 60.54 ml/min Normal 50-250 [facility] Comment on above: Performed By: #### L 500.2500, L100.0500 ####[facility] [address] [place], [address] GAP 11 Normal 5-15 [facility] Comment on above: Performed By: #### L 500.2500, L100.0500 ####[facility] [address] [place], [address] GFR/1.73 sq M.predicted among non-blacks MDRD (S/P/Bld) [Vol rate/Area] 77 mL/min/{1.73_m2} Normal >60 [facility] Comment on above: Result Comment: mL/m in/1.73m2 CKD-EPI Creatinine Equation (2020) Performed By: #### L 500.2500, L100.0500 ####[facility] [address] [place], [address] Glucose [Mass/Vol] 85 mg/dL Normal 70-99 [facility] Comment on above: Performed By: #### L 500.2500, L100.0500 ####[facility] [address] [place], [address] Potassium [Moles/Vol] 3.8 mmol/L Normal 3.3-5.1 [facility] Comment on above: Performed By: #### L 500.2500, L100.0500 ####[facility] [address] [place], [address] Sodium [Moles/Vol] 139 mmol/L Normal 133-145 [facility] Comment on above: Performed By: #### L 500.2500, L100.0500 ####[facility] [address] [place], [address] Urea nitrogen [Mass/Vol] 17 mg/dL Normal 4-19 [facility] Comment on above: Performed By: #### L 500.2500, L100.0500 ####[facility] [address] [place], [address] CBC-Complete Blood Cnt No Di ffon 12-23-2024 Erythrocyte distribution width (RBC) [Ratio] 14.1 % Normal 11.6-14.6 [facility] Comment on above: Performed By: #### L 500.2500, L100.0500 ####[facility] [address] [place], [address] Hematocrit (Bld) [Volume fraction] 36.3 % Low 40-54 [facility] Comment on above: Performed By: #### L 500.2500, L100.0500 ####[facility] [address] [place], [address] Hemoglobin (Bld) [Mass/Vol] 11.2 g/dL Low 13.0-16.5 [facility] Comment on above: Performed By: #### L 500.2500, L100.0500 ####[facility] [address] [place], [address] MCH (RBC) [Entitic mass] 27.7 pg Normal 27.0-32.0 [facility] Comment on above: Performed By: #### L 500.2500, L100.0500 ####[facility] [address] [place], [address] MCHC (RBC) [Mass/Vol] 30.9 g/dL Low 32-36 [facility] Comment on above: Performed By: #### L 500.2500, L100.0500 ####[facility] [address] [place], [address] MCV (RBC) [Entitic vol] 89.9 fL Normal 80-94 [facility] Comment on above: Performed By: #### L 500.2500, L100.0500 ####[facility] [address] [place], [address] Platelet mean volume (Bld) [Entitic vol] 10.0 fL Normal 6.2-12.0 [facility] Comment on above: Performed By: #### L 500.2500, L100.0500 ####[facility] [address] [place], [address] Platelets (Bld) [#/Vol] 376 10*3/uL Normal 150-450 [facility] Comment on above: Performed By: #### L 500.2500, L100.0500 ####[facility] [address] [place], [address] RBC (Bld) [#/Vol] 4.04 10*6/uL Low 4.6-6.2 [facility] Comment on above: Performed By: #### L 500.2500, L100.0500 ####[facility] [address] [place], [address] RDW SD 46.0 fl High 35.1-43.9 [facility] Comment on above: Performed By: #### L 500.2500, L100.0500 ####[facility] [address] [place], [address] WBC (Bld) [#/Vol] 7.5 10*3/uL Normal 4.4-11.0 [facility] Comment on above: Performed By: #### L 500.2500, L100.0500 ####[facility] [address] [place], [address] Duplex ultrasound of carotid artery reportOrdered By: Raul Jensen on 12-23-2024 Study report [facility] Work Phone: EGD Reporton 12-23-2024 EGD Report Normal [facility] MR/POSTOP.ANEon 12-23-2024 MR/POSTOP.ANE Normal [facility] MR/SQYPFNPY0sy 12-23-2024 MR/POSTOPAN2 Normal [facility] Basic Metabolic Profile (BMP )on 12-22-2024 BUN/CRE 15.7 RATIO Normal 10-20 [facility] Comment on above: Performed By: #### L 500.2500, L100.0500 ####[facility] [address] [place], [address] Calcium [Mass/Vol] 8.8 mg/dL Normal 7.6-11.0 [facility] Comment on above: Performed By: #### L 500.2500, L100.0500 ####[facility] [address] [place], [address] Chloride [Moles/Vol] 103 mmol/L Normal 98-108 [facility] Comment on above: Performed By: #### L 500.2500, L100.0500 ####[facility] [address] [place], [address] CO2 [Moles/Vol] 24.6 mmol/L Normal 21.0-32.0 [facility] Comment on above: Performed By: #### L 500.2500, L100.0500 ####[facility] [address] [place], [address] Creatinine [Mass/Vol] 1.03 mg/dL Normal 0.70-1.20 [facility] Comment on above: Performed By: #### L 500.2500, L100.0500 ####[facility] [address] [place], [address] ECRCL 59.95 ml/min Normal 50-250 [facility] Comment on above: Performed By: #### L 500.2500, L100.0500 ####[facility] [address] [place], [address] GAP 11 Normal 5-15 [facility] Comment on above: Performed By: #### L 500.2500, L100.0500 ####[facility] [address] [place], [address] GFR/1.73 sq M.predicted among non-blacks MDRD (S/P/Bld) [Vol rate/Area] 76 mL/min/{1.73_m2} Normal >60 [facility] Comment on above: Result Comment: mL/m in/1.73m2 CKD-EPI Creatinine Equation (2020) Performed By: #### L 500.2500, L100.0500 ####[facility] [address] [place], [address] Glucose [Mass/Vol] 84 mg/dL Normal 70-99 [facility] Comment on above: Performed By: #### L 500.2500, L100.0500 ####[facility] [address] [place], [address] Potassium [Moles/Vol] 3.6 mmol/L Normal 3.3-5.1 [facility] Comment on above: Performed By: #### L 500.2500, L100.0500 ####[facility] [address] [place], [address] Sodium [Moles/Vol] 139 mmol/L Normal 133-145 [facility] Comment on above: Performed By: #### L 500.2500, L100.0500 ####[facility] [address] [place], [address] Urea nitrogen [Mass/Vol] 16 mg/dL Normal 4-19 [facility] Comment on above: Performed By: #### L 500.2500, L100.0500 ####[facility] [address] [place], [address] CBC-Complete Blood Cnt No Di ffon 12-22-2024 Erythrocyte distribution width (RBC) [Ratio] 13.8 % Normal 11.6-14.6 [facility] Comment on above: Performed By: #### L 500.2500, L100.0500 ####[facility] [address] [place], [address] Hematocrit (Bld) [Volume fraction] 37.7 % Low 40-54 [facility] Comment on above: Performed By: #### L 500.2500, L100.0500 ####[facility] [address] [place], [address] Hemoglobin (Bld) [Mass/Vol] 11.7 g/dL Low 13.0-16.5 [facility] Comment on above: Performed By: #### L 500.2500, L100.0500 ####[facility] [address] [place], [address] MCH (RBC) [Entitic mass] 27.7 pg Normal 27.0-32.0 [facility] Comment on above: Performed By: #### L 500.2500, L100.0500 ####[facility] [address] [place], [address] MCHC (RBC) [Mass/Vol] 31.0 g/dL Low 32-36 [facility] Comment on above: Performed By: #### L 500.2500, L100.0500 ####[facility] [address] [place], [address] MCV (RBC) [Entitic vol] 89.1 fL Normal 80-94 [facility] Comment on above: Performed By: #### L 500.2500, L100.0500 ####[facility] [address] [place], [address] Platelet mean volume (Bld) [Entitic vol] 10.1 fL Normal 6.2-12.0 [facility] Comment on above: Performed By: #### L 500.2500, L100.0500 ####[facility] [address] [place], [address] Platelets (Bld) [#/Vol] 392 10*3/uL Normal 150-450 [facility] Comment on above: Performed By: #### L 500.2500, L100.0500 ####[facility] [address] [place], [address] RBC (Bld) [#/Vol] 4.23 10*6/uL Low 4.6-6.2 [facility] Comment on above: Performed By: #### L 500.2500, L100.0500 ####[facility] [address] [place], [address] RDW SD 45.0 fl High 35.1-43.9 [facility] Comment on above: Performed By: #### L 500.2500, L100.0500 ####[facility] [address] [place], [address] WBC (Bld) [#/Vol] 7.5 10*3/uL Normal 4.4-11.0 [facility] Comment on above: Performed By: #### L 500.2500, L100.0500 ####[facility] [address] [place], [address] Basic Metabolic Profile (BMP )on 12-21-2024 BUN/CRE 16.2 RATIO Normal 10-20 [facility] Comment on above: Performed By: #### L 100.0100, L500.2500 ####[facility] [address] [place], [address] Calcium [Mass/Vol] 8.3 mg/dL Normal 7.6-11.0 [facility] Comment on above: Performed By: #### L 100.0100, L500.2500 ####[facility] [address] [place], [address] Chloride [Moles/Vol] 105 mmol/L Normal 98-108 [facility] Comment on above: Performed By: #### L 100.0100, L500.2500 ####[facility] [address] [place], [address] CO2 [Moles/Vol] 25.0 mmol/L Normal 21.0-32.0 [facility] Comment on above: Performed By: #### L 100.0100, L500.2500 ####[facility] [address] [place], [address] Creatinine [Mass/Vol] 0.99 mg/dL Normal 0.70-1.20 [facility] Comment on above: Performed By: #### L 100.0100, L500.2500 ####[facility] [address] [place], [address] ECRCL 62.37 ml/min Normal 50-250 [facility] Comment on above: Performed By: #### L 100.0100, L500.2500 ####[facility] [address] [place], [address] GAP 9 Normal 5-15 [facility] Comment on above: Performed By: #### L 100.0100, L500.2500 ####[facility] [address] [place], [address] GFR/1.73 sq M.predicted among non-blacks MDRD (S/P/Bld) [Vol rate/Area] 80 mL/min/{1.73_m2} Normal >60 [facility] Comment on above: Result Comment: mL/m in/1.73m2 CKD-EPI Creatinine Equation (2020) Performed By: #### L 100.0100, L500.2500 ####[facility] [address] [place], [address] Glucose [Mass/Vol] 95 mg/dL Normal 70-99 [facility] Comment on above: Performed By: #### L 100.0100, L500.2500 ####[facility] [address] [place], [address] Potassium [Moles/Vol] 3.5 mmol/L Normal 3.3-5.1 [facility] Comment on above: Performed By: #### L 100.0100, L500.2500 ####[facility] [address] [place], [address] Sodium [Moles/Vol] 139 mmol/L Normal 133-145 [facility] Comment on above: Performed By: #### L 100.0100, L500.2500 ####[facility] [address] [place], [address] Urea nitrogen [Mass/Vol] 16 mg/dL Normal 4-19 [facility] Comment on above: Performed By: #### L 100.0100, L500.2500 ####[facility] [address] [place], [address] CBC W/Diff, Automatedon 07-0 5-2025 Absolute Lymph 0.95 X10 3/uL Normal 0.83-4.51 [facility] Comment on above: Performed By: #### L 100.0100, L500.2500 ####[facility] [address] [place], [address] Absolute Neut 5.0 X10 3/uL Normal 2.0-7.7 [facility] Comment on above: Performed By: #### L 100.0100, L500.2500 ####[facility] [address] [place], [address] Basophils/100 WBC (Bld) 0.6 % Normal 0-1 [facility] Comment on above: Performed By: #### L 100.0100, L500.2500 ####[facility] [address] [place], [address] Eosinophils/100 WBC (Bld) 1.2 % Normal 0-5 [facility] Comment on above: Performed By: #### L 100.0100, L500.2500 ####[facility] [address] [place], [address] Erythrocyte distribution width (RBC) [Ratio] 13.7 % Normal 11.6-14.6 [facility] Comment on above: Performed By: #### L 100.0100, L500.2500 ####[facility] [address] [place], [address] Hematocrit (Bld) [Volume fraction] 33.8 % Low 40-54 [facility] Comment on above: Performed By: #### L 100.0100, L500.2500 ####[facility] [address] [place], [address] Hemoglobin (Bld) [Mass/Vol] 10.4 g/dL Low 13.0-16.5 [facility] Comment on above: Performed By: #### L 100.0100, L500.2500 ####[facility] [address] [place], [address] IG% 0.400 Normal 0.0-0.9 [facility] Comment on above: Result Comment: IG% - Immature Granulocytes (promyelocytes, myelocytes andmetamyelocytes) > 1% indicates that a LEFT SHIFT is Present. Performed By: #### L 100.0100, L500.2500 ####[facility] [address] [place], [address] Lymphocytes/100 WBC (Bld) 14.2 % Low 19-41 [facility] Comment on above: Performed By: #### L 100.0100, L500.2500 ####[facility] [address] [place], [address] MCH (RBC) [Entitic mass] 27.6 pg Normal 27.0-32.0 [facility] Comment on above: Performed By: #### L 100.0100, L500.2500 ####[facility] [address] [place], [address] MCHC (RBC) [Mass/Vol] 30.8 g/dL Low 32-36 [facility] Comment on above: Performed By: #### L 100.0100, L500.2500 ####[facility] [address] [place], [address] MCV (RBC) [Entitic vol] 89.7 fL Normal 80-94 [facility] Comment on above: Performed By: #### L 100.0100, L500.2500 ####[facility] [address] [place], [address] Monocytes/100 WBC (Bld) 8.5 % Normal 0-10 [facility] Comment on above: Performed By: #### L 100.0100, L500.2500 ####[facility] [address] [place], [address] Neutrophils/100 WBC (Bld) 75.1 % High 47-70 [facility] Comment on above: Performed By: #### L 100.0100, L500.2500 ####[facility] [address] [place], [address] Nucleated RBC (Bld) [#/Vol] 0 10*3/uL Normal 0-5 [facility] Comment on above: Performed By: #### L 100.0100, L500.2500 ####[facility] [address] [place], [address] Platelet mean volume (Bld) [Entitic vol] 9.7 fL Normal 6.2-12.0 [facility] Comment on above: Performed By: #### L 100.0100, L500.2500 ####[facility] [address] [place], [address] Platelets (Bld) [#/Vol] 326 10*3/uL Normal 150-450 [facility] Comment on above: Performed By: #### L 100.0100, L500.2500 ####[facility] [address] [place], [address] RBC (Bld) [#/Vol] 3.77 10*6/uL Low 4.6-6.2 [facility] Comment on above: Performed By: #### L 100.0100, L500.2500 ####[facility] [address] [place], [address] RDW SD 44.7 fl High 35.1-43.9 [facility] Comment on above: Performed By: #### L 100.0100, L500.2500 ####[facility] [address] [place], [address] WBC (Bld) [#/Vol] 6.7 10*3/uL Normal 4.4-11.0 [facility] Comment on above: Performed By: #### L 100.0100, L500.2500 ####[facility] [address] [place], [address] CBC W/Diff, Automatedon 07-0 4-202 Absolute Lymph 0.69 X10 3/uL Low 0.83-4.51 [facility] Comment on above: Performed By: #### L 100.0100 ####[facility] [address] [place], [address] Absolute Neut 5.5 X10 3/uL Normal 2.0-7.7 [facility] Comment on above: Performed By: #### L 100.0100 ####[facility] [facility] [address] [place], [address] Basophils/100 WBC (Bld) 0.9 % Normal 0-1 [facility] Comment on above: Performed By: #### L 100.0100 ####[facility] [address] [place], [address] Eosinophils/100 WBC (Bld) 1.2 % Normal 0-5 [facility] Comment on above: Performed By: #### L 100.0100 ####[facility] [address] [place], [address] Erythrocyte distribution width (RBC) [Ratio] 13.7 % Normal 11.6-14.6 [facility] Comment on above: Performed By: #### L 100.0100 ####[facility] [address] [place], [address] Hematocrit (Bld) [Volume fraction] 35.7 % Low 40-54 [facility] Comment on above: Performed By: #### L 100.0100 ####[facility] [address] [place], [address] Hemoglobin (Bld) [Mass/Vol] 10.9 g/dL Low 13.0-16.5 [facility] Comment on above: Performed By: #### L 100.0100 ####[facility] [address] [place], [address] IG% 0.400 Normal 0.0-0.9 [facility] Comment on above: Result Comment: IG% - Immature Granulocytes (promyelocytes, myelocytes andmetamyelocytes) > 1% indicates that a LEFT SHIFT is Present. Performed By: #### L 100.0100 ####[facility] [address] [place], [address] Lymphocytes/100 WBC (Bld) 9.9 % Low 19-41 [facility] Comment on above: Performed By: #### L 100.0100 ####[facility] [address] [place], [address] MCH (RBC) [Entitic mass] 27.3 pg Normal 27.0-32.0 [facility] Comment on above: Performed By: #### L 100.0100 ####[facility] [address] [place], [address] MCHC (RBC) [Mass/Vol] 30.5 g/dL Low 32-36 [facility] Comment on above: Performed By: #### L 100.0100 ####[facility] [address] [place], [address] MCV (RBC) [Entitic vol] 89.5 fL Normal 80-94 [facility] Comment on above: Performed By: #### L 100.0100 ####[facility] [address] [place], [address] Monocytes/100 WBC (Bld) 8.5 % Normal 0-10 [facility] Comment on above: Performed By: #### L 100.0100 ####[facility] [address] [place], [address] Neutrophils/100 WBC (Bld) 79.1 % High 47-70 [facility] Comment on above: Performed By: #### L 100.0100 ####[facility] [address] [place], [address] Nucleated RBC (Bld) [#/Vol] 0 10*3/uL Normal 0-5 [facility] Comment on above: Performed By: #### L 100.0100 ####[facility] [address] [place], [address] Platelet mean volume (Bld) [Entitic vol] 10.0 fL Normal 6.2-12.0 [facility] Comment on above: Performed By: #### L 100.0100 ####[facility] [address] [place], [address] Platelets (Bld) [#/Vol] 355 10*3/uL Normal 150-450 [facility] Comment on above: Performed By: #### L 100.0100 ####[facility] [address] [place], [address] RBC (Bld) [#/Vol] 3.99 10*6/uL Low 4.6-6.2 [facility] Comment on above: Performed By: #### L 100.0100 ####[facility] [address] [place], [address] RDW SD 44.4 fl High 35.1-43.9 [facility] Comment on above: Performed By: #### L 100.0100 ####[facility] [address] [place], [address] WBC (Bld) [#/Vol] 6.9 10*3/uL Normal 4.4-11.0 [facility] Comment on above: Performed By: #### L 100.0100 ####[facility] [address] [place], [address] Carotid Duplex Ultrasoundon 12-20-2024 Carotid Duplex Ultrasound Normal [facility] Vitamin B12on 12-20-2024 Cobalamin (Vitamin B12) [Mass/Vol] 774 pg/mL Normal 180-914 [facility] Comment on above: Performed By: #### L 503.0106 ####[facility] [address] [place], [address] Vitamin B12 ser/plasOrdered By: Lisha Talamantes on 12-20-2024 Cobalamin (Vitamin B12) [Mass/Vol] 774 pg/mL 180-914 [facility] CBC W/Diff, Automatedon 07- Absolute Lymph 0.67 X10 3/uL Low 0.83-4.51 [facility] Comment on above: Performed By: #### L 100.0100, L500.4050 ####[facility] [address] [place], [address] Absolute Neut 6.0 X10 3/uL Normal 2.0-7.7 [facility] Comment on above: Performed By: #### L 100.0100, L500.4050 ####[facility] [address] [place], [address] Basophils/100 WBC (Bld) 0.8 % Normal 0-1 [facility] Comment on above: Performed By: #### L 100.0100, L500.4050 ####[facility] [address] [place], [address] Eosinophils/100 WBC (Bld) 1.9 % Normal 0-5 [facility] Comment on above: Performed By: #### L 100.0100, L500.4050 ####[facility] [address] [place], [address] Erythrocyte distribution width (RBC) [Ratio] 13.6 % Normal 11.6-14.6 [facility] Comment on above: Performed By: #### L 100.0100, L500.4050 ####[facility] [address] [place], [address] Hematocrit (Bld) [Volume fraction] 39.1 % Low 40-54 [facility] Comment on above: Performed By: #### L 100.0100, L500.4050 ####[facility] [address] [place], [address] Hemoglobin (Bld) [Mass/Vol] 11.9 g/dL Low 13.0-16.5 [facility] Comment on above: Performed By: #### L 100.0100, L500.4050 ####[facility] [address] [place], [address] IG% 0.400 Normal 0.0-0.9 [facility] Comment on above: Result Comment: IG% - Immature Granulocytes (promyelocytes, myelocytes andmetamyelocytes) > 1% indicates that a LEFT SHIFT is Present. Performed By: #### L 100.0100, L500.4050 ####[facility] [address] [place], [address] Lymphocytes/100 WBC (Bld) 9.0 % Low 19-41 [facility] Comment on above: Performed By: #### L 100.0100, L500.4050 ####[facility] [address] [place], [address] MCH (RBC) [Entitic mass] 27.5 pg Normal 27.0-32.0 [facility] Comment on above: Performed By: #### L 100.0100, L500.4050 ####[facility] [address] [place], [address] MCHC (RBC) [Mass/Vol] 30.4 g/dL Low 32-36 [facility] Comment on above: Performed By: #### L 100.0100, L500.4050 ####[facility] [address] [place], [address] MCV (RBC) [Entitic vol] 90.5 fL Normal 80-94 [facility] Comment on above: Performed By: #### L 100.0100, L500.4050 ####[facility] [address] [place], [address] Monocytes/100 WBC (Bld) 6.6 % Normal 0-10 [facility] Comment on above: Performed By: #### L 100.0100, L500.4050 ####[facility] [address] [place], [address] Neutrophils/100 WBC (Bld) 81.3 % High 47-70 [facility] Comment on above: Performed By: #### L 100.0100, L500.4050 ####[facility] [address] [place], [address] Nucleated RBC (Bld) [#/Vol] 0 10*3/uL Normal 0-5 [facility] Comment on above: Performed By: #### L 100.0100, L500.4050 ####[facility] [address] [place], [address] Platelet mean volume (Bld) [Entitic vol] 9.6 fL Normal 6.2-12.0 [facility] Comment on above: Performed By: #### L 100.0100, L500.4050 ####[facility] [address] [place], [address] Platelets (Bld) [#/Vol] 375 10*3/uL Normal 150-450 [facility] Comment on above: Performed By: #### L 100.0100, L500.4050 ####[facility] [address] [place], [address] RBC (Bld) [#/Vol] 4.32 10*6/uL Low 4.6-6.2 [facility] Comment on above: Performed By: #### L 100.0100, L500.4050 ####[facility] [address] [place], [address] RDW SD 44.8 fl High 35.1-43.9 [facility] Comment on above: Performed By: #### L 100.0100, L500.4050 ####[facility] [address] [place], [address] WBC (Bld) [#/Vol] 7.4 10*3/uL Normal 4.4-11.0 [facility] Comment on above: Performed By: #### L 100.0100, L500.4050 ####[facility] [address] [place], [address] CDIFF (PCR)on 12-19-2024 CDIFF Normal [facility] Comment on above: Performed By: #### M 100.6796 ####[facility] [address] [place], [address] Comprehensive Metabolic Prof ilon 12-19-2024 Albumin [Mass/Vol] 4.3 g/dL Normal 3.4-4.8 [facility] Comment on above: Performed By: #### L 100.0100, L500.4050 ####[facility] [address] [place], [address] Albumin/Globulin [Mass ratio] 1.5 {ratio} Normal 0.9-2.4 [facility] Comment on above: Performed By: #### L 100.0100, L500.4050 ####[facility] [address] [place], [address] ALK PHOS 69 U/L Normal 40-129 [facility] Comment on above: Performed By: #### L 100.0100, L500.4050 ####[facility] [address] [place], [address] ALT [Catalytic activity/Vol] 25 U/L Normal <=46 [facility] Comment on above: Performed By: #### L 100.0100, L500.4050 ####[facility] [address] [place], [address] AST [Catalytic activity/Vol] 23 U/L Normal <=37 [facility] Comment on above: Performed By: #### L 100.0100, L500.4050 ####[facility] [address] [place], [address] Bilirubin [Mass/Vol] 0.24 mg/dL Normal 0.00-1.30 [facility] Comment on above: Performed By: #### L 100.0100, L500.4050 ####[facility] [address] [place], [address] BUN/CRE 17.6 RATIO Normal 10-20 [facility] Comment on above: Performed By: #### L 100.0100, L500.4050 ####[facility] [address] [place], [address] Calcium [Mass/Vol] 9.5 mg/dL Normal 7.6-11.0 [facility] Comment on above: Performed By: #### L 100.0100, L500.4050 ####[facility] [address] [place], [address] Chloride [Moles/Vol] 101 mmol/L Normal 98-108 [facility] Comment on above: Performed By: #### L 100.0100, L500.4050 ####[facility] [address] [place], [address] CO2 [Moles/Vol] 27.6 mmol/L Normal 21.0-32.0 [facility] Comment on above: Performed By: #### L 100.0100, L500.4050 ####[facility] [address] [place], [address] Creatinine [Mass/Vol] 1.06 mg/dL Normal 0.70-1.20 [facility] Comment on above: Performed By: #### L 100.0100, L500.4050 ####[facility] [address] [place], [address] ECRCL 58.25 ml/min Normal 50-250 [facility] Comment on above: Performed By: #### L 100.0100, L500.4050 ####[facility] [address] [place], [address] GAP 12 Normal 5-15 [facility] Comment on above: Performed By: #### L 100.0100, L500.4050 ####[facility] [address] [place], [address] GFR/1.73 sq M.predicted among non-blacks MDRD (S/P/Bld) [Vol rate/Area] 73 mL/min/{1.73_m2} Normal >60 [facility] Comment on above: Result Comment: mL/m in/1.73m2 CKD-EPI Creatinine Equation (2020) Performed By: #### L 100.0100, L500.4050 ####[facility] [address] [place], [address] Globulin (S) [Mass/Vol] 2.8 g/dL Normal 2.2-4.2 [facility] Comment on above: Performed By: #### L 100.0100, L500.4050 ####[facility] [address] [place], [address] Glucose [Mass/Vol] 109 mg/dL High 70-99 [facility] Comment on above: Performed By: #### L 100.0100, L500.4050 ####[facility] [address] [place], [address] Potassium [Moles/Vol] 3.6 mmol/L Normal 3.3-5.1 [facility] Comment on above: Performed By: #### L 100.0100, L500.4050 ####[facility] [address] [place], [address] Sodium [Moles/Vol] 141 mmol/L Normal 133-145 [facility] Comment on above: Performed By: #### L 100.0100, L500.4050 ####[facility] [address] [place], [address] T PROT 7.1 g/dL Normal 5.9-8.4 [facility] Comment on above: Performed By: #### L 100.0100, L500.4050 ####[facility] [address] [place], [address] Urea nitrogen [Mass/Vol] 19 mg/dL Normal 4-19 [facility] Comment on above: Performed By: #### L 100.0100, L500.4050 ####[facility] [address] [place], [address] ENTERIC PATHOGEN PANEL STOOL on 12-19-2024 EP PANEL Normal [facility] Comment on above: Performed By: #### M 100.637 ####[facility] [address] [place], [address] Magnetic resonance imaging r eportOrdered By: Dorian Parker on 12-19-2024 Study report [facility] Basic Metabolic Profile (BMP )on 12-18-2024 BUN/CRE 20.6 RATIO High 10-20 [facility] Comment on above: Performed By: #### L 500.2500, L100.0500 ####[facility] [address] [place], [address] Calcium [Mass/Vol] 9.7 mg/dL Normal 7.6-11.0 [facility] Comment on above: Performed By: #### L 500.2500, L100.0500 ####[facility] [address] [place], [address] Chloride [Moles/Vol] 103 mmol/L Normal 98-108 [facility] Comment on above: Performed By: #### L 500.2500, L100.0500 ####[facility] [address] [place], [address] CO2 [Moles/Vol] 26.5 mmol/L Normal 21.0-32.0 [facility] Comment on above: Performed By: #### L 500.2500, L100.0500 ####[facility] [address] [place], [address] Creatinine [Mass/Vol] 1.06 mg/dL Normal 0.70-1.20 [facility] Comment on above: Performed By: #### L 500.2500, L100.0500 ####[facility] [address] [place], [address] ECRCL 58.25 ml/min Normal 50-250 [facility] Comment on above: Performed By: #### L 500.2500, L100.0500 ####[facility] [address] [place], [address] GAP 12 Normal 5-15 [facility] Comment on above: Performed By: #### L 500.2500, L100.0500 ####[facility] [address] [place], [address] GFR/1.73 sq M.predicted among non-blacks MDRD (S/P/Bld) [Vol rate/Area] 73 mL/min/{1.73_m2} Normal >60 [facility] Comment on above: Result Comment: mL/m in/1.73m2 CKD-EPI Creatinine Equation (2020) Performed By: #### L 500.2500, L100.0500 ####[facility] [address] [place], [address] Glucose [Mass/Vol] 95 mg/dL Normal 70-99 [facility] Comment on above: Performed By: #### L 500.2500, L100.0500 ####[facility] [address] [place], [address] Potassium [Moles/Vol] 4.2 mmol/L Normal 3.3-5.1 [facility] Comment on above: Result Comment: Hemo lysis present, Results??could be affected.?? Performed By: #### L 500.2500, L100.0500 ####[facility] [address] [place], [address] Sodium [Moles/Vol] 141 mmol/L Normal 133-145 [facility] Comment on above: Performed By: #### L 500.2500, L100.0500 ####[facility] [address] [place], [address] Urea nitrogen [Mass/Vol] 22 mg/dL High 4-19 [facility] Comment on above: Performed By: #### L 500.2500, L100.0500 ####[facility] [address] [place], [address] Brain without Contraston Brain without Contrast Normal [facility] CBC-Complete Blood Cnt No Di ffon 12-18-2024 Erythrocyte distribution width (RBC) [Ratio] 13.7 % Normal 11.6-14.6 [facility] Comment on above: Performed By: #### L 500.2500, L100.0500 ####[facility] [address] [place], [address] Hematocrit (Bld) [Volume fraction] 41.9 % Normal 40-54 [facility] Comment on above: Performed By: #### L 500.2500, L100.0500 ####[facility] [address] [place], [address] Hemoglobin (Bld) [Mass/Vol] 12.8 g/dL Low 13.0-16.5 [facility] Comment on above: Performed By: #### L 500.2500, L100.0500 ####[facility] [address] [place], [address] MCH (RBC) [Entitic mass] 27.7 pg Normal 27.0-32.0 [facility] Comment on above: Performed By: #### L 500.2500, L100.0500 ####[facility] [address] [place], [address] MCHC (RBC) [Mass/Vol] 30.5 g/dL Low 32-36 [facility] Comment on above: Performed By: #### L 500.2500, L100.0500 ####[facility] [address] [place], [address] MCV (RBC) [Entitic vol] 90.7 fL Normal 80-94 [facility] Comment on above: Performed By: #### L 500.2500, L100.0500 ####[facility] [address] [place], [address] Platelet mean volume (Bld) [Entitic vol] 9.9 fL Normal 6.2-12.0 [facility] Comment on above: Performed By: #### L 500.2500, L100.0500 ####[facility] [address] [place], [address] Platelets (Bld) [#/Vol] 386 10*3/uL Normal 150-450 [facility] Comment on above: Performed By: #### L 500.2500, L100.0500 ####[facility] [address] [place], [address] RBC (Bld) [#/Vol] 4.62 10*6/uL Normal 4.6-6.2 [facility] Comment on above: Performed By: #### L 500.2500, L100.0500 ####[facility] [address] [place], [address] RDW SD 45.7 fl High 35.1-43.9 [facility] Comment on above: Performed By: #### L 500.2500, L100.0500 ####[facility] [address] [place], [address] WBC (Bld) [#/Vol] 10.4 10*3/uL Normal 4.4-11.0 [facility] Comment on above: Performed By: #### L 500.2500, L100.0500 ####[facility] [address] [place], [address] Clostridium difficile detect ion by polymerase chain reactionOrdered By: Lisha Talamantes on 12-18-2024 C. difficile DNA ALEENA+probe Ql (Unsp spec) [facility] Echo, Limited Studyon 2024 Echo, Limited Study Normal [facility] Electrocardiogram reportOrde red By: Brendan Vallejo on 12-18-2024 EKG study [facility] Other Phone: [phone] Limited echocardiogram repor tOrdered By: Milton Guajardo on 12-18-2024 Study report [facility] Work Phone: MR/CON.PCM.NEon 12-18-2024 MR/CON.PCM.NE Normal [facility] 12 Lead EKGon 12-17-2024 12 Lead EKG Normal [facility] Absolute lymphocyte countOrd ered By: Seth Pritchard on 12-17-2024 Lymphocytes Auto (Unsp spec) [#/Vol] 1.03 10*3/uL 0.83-4.51 [facility] Activated partial thrombopla stin time (aPTT) in platelet poor plasma by coagulation aOrdered By: Seth Pritchard on 12-17-2024 aPTT Coag (PPP) [Time] 24.2 s 24.1-36.2 [facility] Anion gap in Serum or Plasma Ordered By: Seth Pritchard on 12-17-2024 Anion gap [Moles/Vol] 13 mmol/L 5-15 [facility] Automated blood erythrocyte countOrdered By: Seth Pritchard on 12-17-2024 RBC (Bld) [#/Vol] 4.45 10*6/uL Low 4.6-6.2 [facility] Comment on above: Performed By: #### L 501.4021, L300.4310, L100.0100, L500.2500, L300.3900 ####[facility] [address] [place], [place], [address] Automated blood hematocrit ( percentage)Ordered By: Seth Pritchard on 12-17-2024 Hematocrit (Bld) [Volume fraction] 39.6 % Low 40-54 [facility] Comment on above: Performed By: #### L 501.4021, L300.4310, L100.0100, L500.2500, L300.3900 ####[facility] [address] [facility] [place], [place], [id number] Automated lymphocyte count a s percentage of total leukocytesOrdered By: Seth Pritchard on 12-17-2024 Lymphocytes/100 WBC Auto (Unsp spec) 12.1 % Low 19-41 [facility] BUN/creatinine ratioOrdered By: Seth Pritchard on 12-17-2024 Urea nitrogen/Creatinine [Mass ratio] 26.4 mg/mg High 10-20 [facility] Basic Metabolic Profile (BMP )on 12-17-2024 BUN/CRE 26.4 RATIO High 10-20 [facility] Comment on above: Performed By: #### L 501.4021, L300.4310, L100.0100, L500.2500, L300.3900 ####[facility] [address] [place], [address] ECRCL 52.33 ml/min Normal 50-250 [facility] Comment on above: Performed By: #### L 501.4021, L300.4310, L100.0100, L500.2500, L300.3900 ####[facility] [address] [place], [address] GAP 13 Normal 5-15 [facility] Comment on above: Performed By: #### L 501.4021, L300.4310, L100.0100, L500.2500, L300.3900 ####[facility] [address] [place], [address] Potassium [Moles/Vol] 3.6 mmol/L Normal 3.3-5.1 [facility] Comment on above: Performed By: #### L 501.4021, L300.4310, L100.0100, L500.2500, L300.3900 ####[facility] [address] [place], [address] Basophil percentageOrdered B y: Seth Pritchard on 12-17-2024 Basophils/100 WBC (Bld) 1.1 % High 0-1 [facility] Comment on above: Performed By: #### L 501.4021, L300.4310, L100.0100, L500.2500, L300.3900 ####[facility] [address] [place], [address] CBC W/Diff, Automatedon 07-0 Absolute Lymph 1.03 X10 3/uL Normal 0.83-4.51 [facility] Comment on above: Performed By: #### L 501.4021, L300.4310, L100.0100, L500.2500, L300.3900 ####[facility] [address] [place], [address] Absolute Neut 6.6 X10 3/uL Normal 2.0-7.7 [facility] Comment on above: Performed By: #### L 501.4021, L300.4310, L100.0100, L500.2500, L300.3900 ####[facility] [address] [place], [address] IG% 0.400 Normal 0.0-0.9 [facility] Comment on above: Result Comment: IG% - Immature Granulocytes (promyelocytes, myelocytes andmetamyelocytes) > 1% indicates that a LEFT SHIFT is Present. Performed By: #### L 501.4021, L300.4310, L100.0100, L500.2500, L300.3900 ####[facility] [address] [place], [address] Lymphocytes/100 WBC (Bld) 12.1 % Low 19-41 [facility] Comment on above: Performed By: #### L 501.4021, L300.4310, L100.0100, L500.2500, L300.3900 ####[facility] [address] [place], [address] MCHC (RBC) [Mass/Vol] 31.3 g/dL Low 32-36 [facility] Comment on above: Performed By: #### L 501.4021, L300.4310, L100.0100, L500.2500, L300.3900 ####[facility] [address] [place], [address] Nucleated RBC (Bld) [#/Vol] 0 10*3/uL Normal 0-5 [facility] Comment on above: Performed By: #### L 501.4021, L300.4310, L100.0100, L500.2500, L300.3900 ####[facility] [address] [place], [place], [address] Platelet mean volume (Bld) [Entitic vol] 10.0 fL Normal 6.2-12.0 [facility] Comment on above: Performed By: #### L 501.4021, L300.4310, L100.0100, L500.2500, L300.3900 ####[facility] [address] [place], [address] RDW SD 45.6 fl High 35.1-43.9 [facility] Comment on above: Performed By: #### L 501.4021, L300.4310, L100.0100, L500.2500, L300.3900 ####[facility] [address] [place], [address] Carbon dioxide, total [Moles /volume] in Central venous bloodOrdered By: Seth Pritchard on 12-17-2024 CO2 [Moles/Vol] 25.5 mmol/L Normal 21.0-32.0 [facility] Comment on above: Performed By: #### L 501.4021, L300.4310, L100.0100, L500.2500, L300.3900 ####[facility] [address] [place], [address] Chest PA and Lateralon 12-17 Chest PA and Lateral Normal [facility] Chloride assayOrdered By: Bill Pritchard on 12-17-2024 Chloride [Moles/Vol] 104 mmol/L Normal 98-108 [facility] Comment on above: Performed By: #### L 501.4021, L300.4310, L100.0100, L500.2500, L300.3900 ####[facility] [address] [place], [address] Emergency Department Summary on 07-01-2025 Emergency Department Summary Normal [facility] Eosinophil percentageOrdered By: Seth Pritchard on 12-17-2024 Eosinophils/100 WBC (Bld) 1.1 % Normal 0-5 [facility] Comment on above: Performed By: #### L 501.4021, L300.4310, L100.0100, L500.2500, L300.3900 ####[facility] [address] [place], [place], [id number] Erythrocyte distribution wid th ratioOrdered By: Seth Pritchard on 12-17-2024 Erythrocyte distribution width (RBC) [Ratio] 14.0 % Normal 11.6-14.6 [facility] Comment on above: Performed By: #### L 501.4021, L300.4310, L100.0100, L500.2500, L300.3900 ####[facility] [address] [place], [place], [id number] Erythrocyte distribution wid th standard deviationOrdered By: Seth Pritchard on 12-17-2024 Erythrocyte distribution width (RBC) [Ratio] 45.6 fl High 35.1-43.9 [facility] Glomerular filtration rate ( GFR) estimation/1.73 sq m using serum, plasma, or whole bOrdered By: Seth Pritchard on 12-17-2024 GFR/1.73 sq M.predicted among non-blacks MDRD (S/P/Bld) [Vol rate/Area] 64 mL/min/{1.73_m2} Normal >60 [facility] Comment on above: Result Comment: mL/m in/1.73m2 CKD-EPI Creatinine Equation (2020) Performed By: #### L 501.4021, L300.4310, L100.0100, L500.2500, L300.3900 ####[facility] [address] [place], [address] H AND P Exam - Hospitaliston 12-17-2024 H&P Exam - Hospitalist Normal [facility] Hemoglobin A1c percentageOrd ered By: Roman Patel on 12-17-2024 HbA1c (Bld) [Mass fraction] 5.9 % High <=5.6 [facility] Comment on above: Result Comment: Norm al < 5.7 % Prediabetic 5.7 - 6.4 % Diabetic >or= 6.5 % Please note range changes. Performed By: #### L 501.9985, L501.9520 ####[facility] [address] [place], [address] Hemoglobin measurementOrdere d By: Seth Pritchard on 12-17-2024 Hemoglobin (Bld) [Mass/Vol] 12.4 g/dL Low 13.0-16.5 [facility] Comment on above: Performed By: #### L 501.4021, L300.4310, L100.0100, L500.2500, L300.3900 ####[facility] [address] [place], [address] Immature granulocytes/100 WB C Auto (Bld)Ordered By: Seth Pritchard on 12-17-2024 Immature granulocytes/100 WBC (Bld) 0.400 % 0.0-0.9 [facility] L499.0042on 12-17-2024 Trop T High Sen 23 ng/L High <=22 [facility] Comment on above: Performed By: #### L 499.0042 ####[facility] [address] [place], [address] L499.0043on 12-17-2024 Trop T High Sen 23 ng/L High <=22 [facility] Comment on above: Performed By: #### L 499.0043 ####[facility] [address] [place], [address] L501.4021on 12-17-2024 Trop T High Sen 27 ng/L High <=22 [facility] Comment on above: Performed By: #### L 501.4021, L300.4310, L100.0100, L500.2500, L300.3900 ####[facility] [address] [place], [place], [id number] MCV (mean corpuscular volume ) determinationOrdered By: Seth Pritchard on 12-17-2024 MCV (RBC) [Entitic vol] 89.0 fL Normal 80-94 [facility] Comment on above: Performed By: #### L 501.4021, L300.4310, L100.0100, L500.2500, L300.3900 ####[facility] [address] [place], [place], [id number] Mean corpuscular hemoglobin (MCH) determinationOrdered By: Seth Pritchard on 12-17-2024 MCH (RBC) [Entitic mass] 27.9 pg Normal 27.0-32.0 [facility] Comment on above: Performed By: #### L 501.4021, L300.4310, L100.0100, L500.2500, L300.3900 ####[facility] [address] [place], [place], [id number] Monocyte percentageOrdered B y: Seth Pritchard on 12-17-2024 Monocytes/100 WBC (Bld) 7.8 % Normal 0-10 [facility] Comment on above: Performed By: #### L 501.4021, L300.4310, L100.0100, L500.2500, L300.3900 ####[facility] [address] [place], [address] Neutrophil percentageOrdered By: Seth Pritchard on 12-17-2024 Neutrophils/100 WBC (Bld) 77.5 % High 47-70 [facility] Comment on above: Performed By: #### L 501.4021, L300.4310, L100.0100, L500.2500, L300.3900 ####[facility] [address] [place], [address] Partial Thromboplast Timeon 12-17-2024 aPTT Coag (Bld) [Time] 24.2 s Normal 24.1-36.2 [facility] Comment on above: Performed By: #### L 501.4021, L300.4310, L100.0100, L500.2500, L300.3900 ####[facility] [address] [place], [address] Platelet countOrdered By: Bill Pritchard on 12-17-2024 Platelets (Bld) [#/Vol] 417 10*3/uL Normal 150-450 [facility] Comment on above: Performed By: #### L 501.4021, L300.4310, L100.0100, L500.2500, L300.3900 ####[facility] [address] [place], [address] Potassium measurement (mass/ volume)Ordered By: Seth Pritchard on 12-17-2024 Potassium (Unsp spec) [Mass/Vol] 3.6 mmol/L 3.3-5.1 [facility] Prothrombin Time w/INRon INR Coag (PPP) [Relative time] 0.9 {INR} Normal [facility] Comment on above: Performed By: #### L 501.4021, L300.4310, L100.0100, L500.2500, L300.3900 ####[facility] [address] [place], [address] Prothrombin timeOrdered By: Seth Pritchard on 12-17-2024 PT Coag (PPP) [Time] 12.8 s Normal 11.7-14.9 [facility] Comment on above: Performed By: #### L 501.4021, L300.4310, L100.0100, L500.2500, L300.3900 ####[facility] [address] [place], [address] STROKE Brain/Head without Co nton 12-17-2024 STROKE Brain/Head without Cont Normal [facility] STROKE CTA Head AND Neck W/C onon 12-17-2024 STROKE CTA Head AND Neck W/Con Normal [facility] Serum creatinine measurement (mass/volume)Ordered By: Seth Pritchard on 12-17-2024 Creatinine [Mass/Vol] 1.18 mg/dL Normal 0.70-1.20 [facility] Comment on above: Performed By: #### L 501.4021, L300.4310, L100.0100, L500.2500, L300.3900 ####[facility] [address] [place], [address] Serum glucose measurement (m ass/volume)Ordered By: Seth Pritchard on 12-17-2024 Glucose [Mass/Vol] 137 mg/dL High 70-99 [facility] Comment on above: Performed By: #### L 501.4021, L300.4310, L100.0100, L500.2500, L300.3900 ####[facility] [address] [place], [address] Serum or plasma calcium luis urement (mass/volume)Ordered By: Seth Pritchard on 12-17-2024 Calcium [Mass/Vol] 9.9 mg/dL Normal 7.6-11.0 [facility] Comment on above: Performed By: #### L 501.4021, L300.4310, L100.0100, L500.2500, L300.3900 ####[facility] [address] [place], [address] Serum or plasma urea nitroge n measurement (mass/volume)Ordered By: Seth Pritchard on 12-17-2024 Urea nitrogen [Mass/Vol] 31 mg/dL High 4-19 [facility] Comment on above: Performed By: #### L 501.4021, L300.4310, L100.0100, L500.2500, L300.3900 ####[facility] [address] [place], [address] Sodium levelOrdered By: Huang Pritchard on 12-17-2024 Sodium [Moles/Vol] 142 mmol/L Normal 133-145 [facility] Comment on above: Performed By: #### L 501.4021, L300.4310, L100.0100, L500.2500, L300.3900 ####[facility] [address] [place], [place], [id number] TSH DL <= 0.005 mIU/L QnOrde red By: Roman Patel on 12-17-2024 TSH Qn 3.380 uIU/mL 0.300-4.200 [facility] Thyroid Stim Hormone (TSH)on 12-17-2024 TSH 3.380 uIU/mL Normal 0.300-4.200 [facility] Comment on above: Performed By: #### L 501.9985, L501.9520 ####[facility] [address] [place], [address] Troponin T.cardiac [Mass/vol ume] in Serum or Plasma by High sensitivity methodOrdered By: Seth Pritchard on 12-17-2024 Troponin T.cardiac High sensitivity method [Mass/Vol] 23 ng/L High <22 [facility] Troponin T.cardiac High sensitivity method [Mass/Vol] 23 ng/L High <22 [facility] Troponin T.cardiac High sensitivity method [Mass/Vol] 27 ng/L High <22 [facility] White blood cell (WBC) count Ordered By: Seth Pritchard on 12-17-2024 WBC (Bld) [#/Vol] 8.5 10*3/uL Normal 4.4-11.0 [facility] Comment on above: Performed By: #### L 501.4021, L300.4310, L100.0100, L500.2500, L300.3900 ####[facility] [address] [place], [place], [id number] Anion gap in Serum or Plasma Ordered By: Lisha Talamantes on 12-16-2024 Anion gap [Moles/Vol] 12 mmol/L 5-15 [facility] BUN/creatinine ratioOrdered By: Lisha Talamantes on 12-16-2024 Urea nitrogen/Creatinine [Mass ratio] 24.5 mg/mg High 10-20 [facility] Basic Metabolic Profile (BMP )on 12-16-2024 BUN/CRE 24.5 RATIO High - [facility] Comment on above: Performed By: #### L 500.2500 ####[facility] [address] [place], [address] Calcium [Mass/Vol] 9.4 mg/dL Normal 7.6-11.0 [facility] Comment on above: Performed By: #### L 500.2500 ####[facility] [address] [place], [address] Chloride [Moles/Vol] 102 mmol/L Normal 98-108 [facility] Comment on above: Performed By: #### L 500.2500 ####[facility] [address] [place], [address] CO2 [Moles/Vol] 25.5 mmol/L Normal 21.0-32.0 [facility] Comment on above: Performed By: #### L 500.2500 ####[facility] [address] [place], [address] Creatinine [Mass/Vol] 1.17 mg/dL Normal 0.70-1.20 [facility] Comment on above: Performed By: #### L 500.2500 ####[facility] [address] [place], [address] ECRCL 52.78 ml/min Normal 50-250 [facility] Comment on above: Performed By: #### L 500.2500 ####[facility] [address] [place], [address] GAP 12 Normal 5-15 [facility] Comment on above: Performed By: #### L 500.2500 ####[facility] [address] [place], [address] GFR/1.73 sq M.predicted among non-blacks MDRD (S/P/Bld) [Vol rate/Area] 65 mL/min/{1.73_m2} Normal >60 [facility] Comment on above: Result Comment: mL/m in/1.73m2 CKD-EPI Creatinine Equation (2020) Performed By: #### L 500.2500 ####[facility] [address] [place], [address] Glucose [Mass/Vol] 108 mg/dL High 70-99 [facility] Comment on above: Performed By: #### L 500.2500 ####[facility] [address] [place], [address] Potassium [Moles/Vol] 3.6 mmol/L Normal 3.3-5.1 [facility] Comment on above: Performed By: #### L 500.2500 ####[facility] [address] [place], [address] Sodium [Moles/Vol] 140 mmol/L Normal 133-145 [facility] Comment on above: Performed By: #### L 500.2500 ####[facility] [address] [place], [address] Urea nitrogen [Mass/Vol] 29 mg/dL High 4-19 [facility] Comment on above: Performed By: #### L 500.2500 ####[facility] [address] [place], [address] Carbon dioxide, total [Moles /volume] in Central venous bloodOrdered By: Lisha Talamantes on 12-16-2024 CO2 [Moles/Vol] 25.5 mmol/L 21.0-32.0 [facility] Chloride assayOrdered By: Sierra Talamantes on 12-16-2024 Chloride [Moles/Vol] 102 mmol/L 98-108 [facility] Culture, Blood (WB)on 2024 CUB Blood cultures x2, from two different sites No growth in 5 days. Normal [facility] [facility] Comment on above: Performed By: #### M 200.1000 ####[facility] [address] [place], [place], [id number] Glomerular filtration rate ( GFR) estimation/1.73 sq m using serum, plasma, or whole bOrdered By: Lisha Talamantes on 12-16-2024 GFR/1.73 sq M.predicted among non-blacks MDRD (S/P/Bld) [Vol rate/Area] 65 mL/min/{1.73_m2} >60 [facility] Potassium measurement (mass/ volume)Ordered By: Lisha Talamantes on 12-16-2024 Potassium (Unsp spec) [Mass/Vol] 3.6 mmol/L 3.3-5.1 [facility] Serum creatinine measurement (mass/volume)Ordered By: Lisha Talamantes on 12-16-2024 Creatinine [Mass/Vol] 1.17 mg/dL 0.70-1.20 [facility] Serum glucose measurement (m ass/volume)Ordered By: Lisha Talamantes on 12-16-2024 Glucose [Mass/Vol] 108 mg/dL High 70-99 [facility] Serum or plasma calcium luis urement (mass/volume)Ordered By: Lisha Talamantes on 12-16-2024 Calcium [Mass/Vol] 9.4 mg/dL 7.6-11.0 [facility] Serum or plasma urea nitroge n measurement (mass/volume)Ordered By: Lisha Talamantes on 12-16-2024 Urea nitrogen [Mass/Vol] 29 mg/dL High 4-19 [facility] Sodium levelOrdered By: Cecilia Talamantes on 12-16-2024 Sodium [Moles/Vol] 140 mmol/L 133-145 [facility] Absolute lymphocyte countOrd ered By: Lisha Talamantes on 12-15-2024 Lymphocytes Auto (Unsp spec) [#/Vol] 0.82 10*3/uL Low 0.83-4.51 [facility] Automated lymphocyte count a s percentage of total leukocytesOrdered By: Lisha Talamantes on 12-15-2024 Lymphocytes/100 WBC Auto (Unsp spec) 9.8 % Low 19-41 [facility] Basic Metabolic Profile (BMP )on 12-15-2024 BUN/CRE 20.1 RATIO High 10-20 [facility] Comment on above: Performed By: #### L 501.2300, L500.2500, L100.0100, L501.5200 ####[facility] [address] [place], [address] Calcium [Mass/Vol] 9.3 mg/dL Normal 7.6-11.0 [facility] Comment on above: Performed By: #### L 501.2300, L500.2500, L100.0100, L501.5200 ####[facility] [address] [place], [address] Chloride [Moles/Vol] 106 mmol/L Normal 98-108 [facility] Comment on above: Performed By: #### L 501.2300, L500.2500, L100.0100, L501.5200 ####[facility] [address] [place], [address] CO2 [Moles/Vol] 24.0 mmol/L Normal 21.0-32.0 [facility] Comment on above: Performed By: #### L 501.2300, L500.2500, L100.0100, L501.5200 ####[facility] [address] [place], [address] Creatinine [Mass/Vol] 1.10 mg/dL Normal 0.70-1.20 [facility] Comment on above: Performed By: #### L 501.2300, L500.2500, L100.0100, L501.5200 ####[facility] [address] [place], [address] ECRCL 56.14 ml/min Normal 50-250 [facility] Comment on above: Performed By: #### L 501.2300, L500.2500, L100.0100, L501.5200 ####[facility] [address] [place], [address] GAP 12 Normal 5-15 [facility] Comment on above: Performed By: #### L 501.2300, L500.2500, L100.0100, L501.5200 ####[facility] [address] [place], [address] GFR/1.73 sq M.predicted among non-blacks MDRD (S/P/Bld) [Vol rate/Area] 70 mL/min/{1.73_m2} Normal >60 [facility] Comment on above: Result Comment: mL/m in/1.73m2 CKD-EPI Creatinine Equation (2020) Performed By: #### L 501.2300, L500.2500, L100.0100, L501.5200 ####[facility] [address] [place], [address] Glucose [Mass/Vol] 97 mg/dL Normal 70-99 [facility] Comment on above: Performed By: #### L 501.2300, L500.2500, L100.0100, L501.5200 ####[facility] [address] [place], [address] Potassium [Moles/Vol] 4.1 mmol/L Normal 3.3-5.1 [facility] Comment on above: Performed By: #### L 501.2300, L500.2500, L100.0100, L501.5200 ####[facility] [address] [place], [address] Sodium [Moles/Vol] 142 mmol/L Normal 133-145 [facility] Comment on above: Performed By: #### L 501.2300, L500.2500, L100.0100, L501.5200 ####[facility] [address] [place], [address] Urea nitrogen [Mass/Vol] 22 mg/dL High 4-19 [facility] Comment on above: Performed By: #### L 501.2300, L500.2500, L100.0100, L501.5200 ####[facility] [address] [place], [address] Basophil percentageOrdered B y: Lisha Talamantes on 12-15-2024 Basophils/100 WBC (Bld) 0.2 % 0-1 [facility] CBC W/Diff, Automatedon 11-18 Absolute Lymph 0.82 X10 3/uL Low 0.83-4.51 [facility] Comment on above: Performed By: #### L 501.2300, L500.2500, L100.0100, L501.5200 ####[facility] [address] [place], [address] Absolute Neut 7.0 X10 3/uL Normal 2.0-7.7 [facility] Comment on above: Performed By: #### L 501.2300, L500.2500, L100.0100, L501.5200 ####[facility] [address] [place], [address] Basophils/100 WBC (Bld) 0.2 % Normal 0-1 [facility] Comment on above: Performed By: #### L 501.2300, L500.2500, L100.0100, L501.5200 ####[facility] [address] [place], [address] Eosinophils/100 WBC (Bld) 0.0 % Normal 0-5 [facility] Comment on above: Performed By: #### L 501.2300, L500.2500, L100.0100, L501.5200 ####[facility] [address] [place], [address] Erythrocyte distribution width (RBC) [Ratio] 13.8 % Normal 11.6-14.6 [facility] Comment on above: Performed By: #### L 501.2300, L500.2500, L100.0100, L501.5200 ####[facility] [address] [place], [address] Hematocrit (Bld) [Volume fraction] 35.6 % Low 40-54 [facility] Comment on above: Performed By: #### L 501.2300, L500.2500, L100.0100, L501.5200 ####[facility] [address] [place], [address] Hemoglobin (Bld) [Mass/Vol] 11.3 g/dL Low 13.0-16.5 [facility] Comment on above: Performed By: #### L 501.2300, L500.2500, L100.0100, L501.5200 ####[facility] [address] [place], [address] IG% 0.400 Normal 0.0-0.9 [facility] Comment on above: Result Comment: IG% - Immature Granulocytes (promyelocytes, myelocytes andmetamyelocytes) > 1% indicates that a LEFT SHIFT is Present. Performed By: #### L 501.2300, L500.2500, L100.0100, L501.5200 ####[facility] [address] [place], [address] Lymphocytes/100 WBC (Bld) 9.8 % Low 19-41 [facility] Comment on above: Performed By: #### L 501.2300, L500.2500, L100.0100, L501.5200 ####[facility] [address] [place], [address] MCH (RBC) [Entitic mass] 28.2 pg Normal 27.0-32.0 [facility] Comment on above: Performed By: #### L 501.2300, L500.2500, L100.0100, L501.5200 ####[facility] [address] [place], [address] MCHC (RBC) [Mass/Vol] 31.7 g/dL Low 32-36 [facility] Comment on above: Performed By: #### L 501.2300, L500.2500, L100.0100, L501.5200 ####[facility] [address] [place], [address] MCV (RBC) [Entitic vol] 88.8 fL Normal 80-94 [facility] Comment on above: Performed By: #### L 501.2300, L500.2500, L100.0100, L501.5200 ####[facility] [address] [place], [address] Monocytes/100 WBC (Bld) 6.3 % Normal 0-10 [facility] Comment on above: Performed By: #### L 501.2300, L500.2500, L100.0100, L501.5200 ####[facility] [address] [place], [address] Neutrophils/100 WBC (Bld) 83.3 % High 47-70 [facility] Comment on above: Performed By: #### L 501.2300, L500.2500, L100.0100, L501.5200 ####[facility] [address] [place], [address] Nucleated RBC (Bld) [#/Vol] 0 10*3/uL Normal 0-5 [facility] Comment on above: Performed By: #### L 501.2300, L500.2500, L100.0100, L501.5200 ####[facility] [address] [place], [address] Platelet mean volume (Bld) [Entitic vol] 10.0 fL Normal 6.2-12.0 [facility] Comment on above: Performed By: #### L 501.2300, L500.2500, L100.0100, L501.5200 ####[facility] [address] [place], [address] Platelets (Bld) [#/Vol] 329 10*3/uL Normal 150-450 [facility] Comment on above: Performed By: #### L 501.2300, L500.2500, L100.0100, L501.5200 ####[facility] [address] [place], [address] RBC (Bld) [#/Vol] 4.01 10*6/uL Low 4.6-6.2 [facility] Comment on above: Performed By: #### L 501.2300, L500.2500, L100.0100, L501.5200 ####[facility] [address] [place], [address] RDW SD 44.9 fl High 35.1-43.9 [facility] Comment on above: Performed By: #### L 501.2300, L500.2500, L100.0100, L501.5200 ####[facility] [address] [place], [address] WBC (Bld) [#/Vol] 8.4 10*3/uL Normal 4.4-11.0 [facility] Comment on above: Performed By: #### L 501.2300, L500.2500, L100.0100, L501.5200 ####[facility] [address] [place], [address] Eosinophil percentageOrdered By: Lisha Talamantes on 12-15-2024 Eosinophils/100 WBC (Bld) 0.0 % 0-5 [facility] Erythrocyte distribution wid th ratioOrdered By: Lisha Talamantes on 12-15-2024 Erythrocyte distribution width (RBC) [Ratio] 13.8 % 11.6-14.6 [facility] Erythrocyte distribution wid th standard deviationOrdered By: Lisha Talamantes on 12-15-2024 Erythrocyte distribution width (RBC) [Ratio] 44.9 fl High 35.1-43.9 [facility] Hematocrit Auto (Bld) [Volum e fraction]Ordered By: Lisha Talamantes on 12-15-2024 Hematocrit (Bld) [Volume fraction] 35.6 % Low 40-54 [facility] Hemoglobin measurementOrdere d By: Lisha Talamantes on 12-15-2024 Hemoglobin (Bld) [Mass/Vol] 11.3 g/dL Low 13.0-16.5 [facility] Immature granulocytes/100 WB C Auto (Bld)Ordered By: Lisha Talamantes on 12-15-2024 Immature granulocytes/100 WBC (Bld) 0.400 % 0.0-0.9 [facility] MCV (mean corpuscular volume ) determinationOrdered By: Lisha Talamantes on 12-15-2024 MCV (RBC) [Entitic vol] 88.8 fL 80-94 [facility] Magnesiumon 12-15-2024 Magnesium [Mass/Vol] 2.0 mg/dL Normal 1.5-2.2 [facility] Comment on above: Performed By: #### L 501.2300, L500.2500, L100.0100, L501.5200 ####[facility] [address] [place], [place], [id number] Magnesium measurement (mass/ volume)Ordered By: Lisha Talamantes on 12-15-2024 Magnesium (Unsp spec) [Mass/Vol] 2.0 mg/dL 1.5-2.2 [facility] Mean corpuscular hemoglobin (MCH) determinationOrdered By: Lisha Talamantes on 12-15-2024 MCH (RBC) [Entitic mass] 28.2 pg 27.0-32.0 [facility] Monocyte percentageOrdered B y: Lisha Talamantes on 12-15-2024 Monocytes/100 WBC (Bld) 6.3 % 0-10 [facility] Neutrophil percentageOrdered By: Lisha Talamantes on 12-15-2024 Neutrophils/100 WBC (Bld) 83.3 % High 47-70 [facility] Phosphoruson 12-15-2024 Phosphate [Mass/Vol] 3.3 mg/dL Normal 2.7-4.5 [facility] Comment on above: Performed By: #### L 501.2300, L500.2500, L100.0100, L501.5200 ####[facility] [address] [place], [address] Platelet countOrdered By: Sierra Talamantes on 12-15-2024 Platelets (Bld) [#/Vol] 329 10*3/uL 150-450 [facility] RBC Auto (Bld) [#/Vol]Ordere d By: Lisha Talamantes on 12-15-2024 RBC (Bld) [#/Vol] 4.01 10*6/uL Low 4.6-6.2 [facility] White blood cell (WBC) count Ordered By: Lisha Talamantes on 12-15-2024 WBC (Bld) [#/Vol] 8.4 10*3/uL 4.4-11.0 [facility] Bilirubin, totalOrdered By: Shilpa Contreras on 12-14-2024 Bilirubin [Mass/Vol] mg/dL 0.00-1.30 [facility] CBC W/Diff, Automatedon 11-18 Absolute Lymph 0.65 X10 3/uL Low 0.83-4.51 [facility] Comment on above: Performed By: #### L 100.0100, L500.4050, L300.3900 ####[facility] [address] [place], [address] Absolute Neut 3.4 X10 3/uL Normal 2.0-7.7 [facility] Comment on above: Performed By: #### L 100.0100, L500.4050, L300.3900 ####[facility] [address] [place], [address] Basophils/100 WBC (Bld) 0.2 % Normal 0-1 [facility] Comment on above: Performed By: #### L 100.0100, L500.4050, L300.3900 ####[facility] [address] [place], [address] Eosinophils/100 WBC (Bld) 0.0 % Normal 0-5 [facility] Comment on above: Performed By: #### L 100.0100, L500.4050, L300.3900 ####[facility] [address] [place], [address] Erythrocyte distribution width (RBC) [Ratio] 13.7 % Normal 11.6-14.6 [facility] Comment on above: Performed By: #### L 100.0100, L500.4050, L300.3900 ####[facility] [address] [place], [address] Hematocrit (Bld) [Volume fraction] 33.7 % Low 40-54 [facility] Comment on above: Performed By: #### L 100.0100, L500.4050, L300.3900 ####[facility] [address] [place], [address] Hemoglobin (Bld) [Mass/Vol] 10.6 g/dL Low 13.0-16.5 [facility] Comment on above: Performed By: #### L 100.0100, L500.4050, L300.3900 ####[facility] [address] [place], [address] IG% 0.200 Normal 0.0-0.9 [facility] Comment on above: Result Comment: IG% - Immature Granulocytes (promyelocytes, myelocytes andmetamyelocytes) > 1% indicates that a LEFT SHIFT is Present. Performed By: #### L 100.0100, L500.4050, L300.3900 ####[facility] [address] [place], [address] Lymphocytes/100 WBC (Bld) 15.0 % Low 19-41 [facility] Comment on above: Performed By: #### L 100.0100, L500.4050, L300.3900 ####[facility] [address] [place], [address] MCH (RBC) [Entitic mass] 27.8 pg Normal 27.0-32.0 [facility] Comment on above: Performed By: #### L 100.0100, L500.4050, L300.3900 ####[facility] [address] [place], [address] MCHC (RBC) [Mass/Vol] 31.5 g/dL Low 32-36 [facility] Comment on above: Performed By: #### L 100.0100, L500.4050, L300.3900 ####[facility] [address] [place], [address] MCV (RBC) [Entitic vol] 88.5 fL Normal 80-94 [facility] Comment on above: Performed By: #### L 100.0100, L500.4050, L300.3900 ####[facility] [address] [place], [address] Monocytes/100 WBC (Bld) 5.3 % Normal 0-10 [facility] Comment on above: Performed By: #### L 100.0100, L500.4050, L300.3900 ####[facility] [address] [place], [address] Neutrophils/100 WBC (Bld) 79.3 % High 47-70 [facility] Comment on above: Performed By: #### L 100.0100, L500.4050, L300.3900 ####[facility] [address] [place], [address] Nucleated RBC (Bld) [#/Vol] 0 10*3/uL Normal 0-5 [facility] Comment on above: Performed By: #### L 100.0100, L500.4050, L300.3900 ####[facility] [address] [place], [address] Platelet mean volume (Bld) [Entitic vol] 10.1 fL Normal 6.2-12.0 [facility] Comment on above: Performed By: #### L 100.0100, L500.4050, L300.3900 ####[facility] [address] [place], [address] Platelets (Bld) [#/Vol] 306 10*3/uL Normal 150-450 [facility] Comment on above: Performed By: #### L 100.0100, L500.4050, L300.3900 ####[facility] [address] [place], [address] RBC (Bld) [#/Vol] 3.81 10*6/uL Low 4.6-6.2 [facility] Comment on above: Performed By: #### L 100.0100, L500.4050, L300.3900 ####[facility] [address] [place], [address] RDW SD 44.5 fl High 35.1-43.9 [facility] Comment on above: Performed By: #### L 100.0100, L500.4050, L300.3900 ####[facility] [address] [place], [address] WBC (Bld) [#/Vol] 4.3 10*3/uL Low 4.4-11.0 [facility] Comment on above: Performed By: #### L 100.0100, L500.4050, L300.3900 ####[facility] [address] [place], [address] Comprehensive Metabolic Prof ilon 12-14-2024 ALK PHOS 70 U/L Normal 40-129 [facility] Comment on above: Performed By: #### L 100.0100, L500.4050, L300.3900 ####[facility] [address] [place], [address] AST [Catalytic activity/Vol] 18 U/L Normal <=37 [facility] Comment on above: Performed By: #### L 100.0100, L500.4050, L300.3900 ####[facility] [address] [place], [address] BUN/CRE 12.3 RATIO Normal 10-20 [facility] Comment on above: Performed By: #### L 100.0100, L500.4050, L300.3900 ####[facility] [address] [place], [address] Calcium [Mass/Vol] 9.5 mg/dL Normal 7.6-11.0 [facility] Comment on above: Performed By: #### L 100.0100, L500.4050, L300.3900 ####[facility] [address] [place], [address] Chloride [Moles/Vol] 105 mmol/L Normal 98-108 [facility] Comment on above: Performed By: #### L 100.0100, L500.4050, L300.3900 ####[facility] [address] [place], [address] CO2 [Moles/Vol] 24.4 mmol/L Normal 21.0-32.0 [facility] Comment on above: Performed By: #### L 100.0100, L500.4050, L300.3900 ####[facility] [address] [place], [address] Creatinine [Mass/Vol] 1.04 mg/dL Normal 0.70-1.20 [facility] Comment on above: Performed By: #### L 100.0100, L500.4050, L300.3900 ####[facility] [address] [place], [address] ECRCL 59.38 ml/min Normal 50-250 [facility] Comment on above: Performed By: #### L 100.0100, L500.4050, L300.3900 ####[facility] [address] [place], [address] GAP 13 Normal 5-15 [facility] Comment on above: Performed By: #### L 100.0100, L500.4050, L300.3900 ####[facility] [address] [place], [address] GFR/1.73 sq M.predicted among non-blacks MDRD (S/P/Bld) [Vol rate/Area] 75 mL/min/{1.73_m2} Normal >60 [facility] Comment on above: Result Comment: mL/m in/1.73m2 CKD-EPI Creatinine Equation (2020) Performed By: #### L 100.0100, L500.4050, L300.3900 ####[facility] [address] [place], [address] Glucose [Mass/Vol] 129 mg/dL High 70-99 [facility] Comment on above: Performed By: #### L 100.0100, L500.4050, L300.3900 ####[facility] [address] [place], [address] Potassium [Moles/Vol] 3.8 mmol/L Normal 3.3-5.1 [facility] Comment on above: Performed By: #### L 100.0100, L500.4050, L300.3900 ####[facility] [address] [place], [address] Sodium [Moles/Vol] 143 mmol/L Normal 133-145 [facility] Comment on above: Performed By: #### L 100.0100, L500.4050, L300.3900 ####[facility] [address] [place], [address] T BILI < 0.15 Normal 0.00-1.30 [facility] Comment on above: Performed By: #### L 100.0100, L500.4050, L300.3900 ####[facility] [address] [place], [address] T PROT 6.6 g/dL Normal 5.9-8.4 [facility] Comment on above: Performed By: #### L 100.0100, L500.4050, L300.3900 ####[facility] [address] [place], [address] Urea nitrogen [Mass/Vol] 13 mg/dL Normal 4-19 [facility] Comment on above: Performed By: #### L 100.0100, L500.4050, L300.3900 ####[facility] [address] [place], [address] No Panel InformationOrdered By: Shilpa Contreras on 12-14-2024 18 U/L <38 [facility] Prothrombin Time w/INRon INR Coag (PPP) [Relative time] 1.0 {INR} Normal [facility] Comment on above: Performed By: #### L 100.0100, L500.4050, L300.3900 ####[facility] [address] [place], [address] PT Coag (PPP) [Time] 13.5 s Normal 11.7-14.9 [facility] Comment on above: Performed By: #### L 100.0100, L500.4050, L300.3900 ####[facility] [address] [place], [address] Prothrombin timeOrdered By: Shilpa Contreras on 12-14-2024 PT Coag (PPP) [Time] 13.5 s 11.7-14.9 [facility] RESPIRATORY PANEL MOLECULARo n 12-14-2024 RP PANEL Normal [facility] Comment on above: Performed By: #### M 100.638 ####[facility] [address] [place], [address] Serum globulin measurementOr dered By: Shilpa Contreras on 12-14-2024 Globulin (S) [Mass/Vol] 2.5 g/dL Normal 2.2-4.2 [facility] Comment on above: Performed By: #### L 100.0100, L500.4050, L300.3900 ####[facility] [address] [place], [address] Serum or plasma alanine saul otransferase (ALT) measurementOrdered By: Shilpa Contreras on 12-14-2024 ALT [Catalytic activity/Vol] 16 U/L Normal <=46 [facility] Comment on above: Performed By: #### L 100.0100, L500.4050, L300.3900 ####[facility] [address] [place], [address] Serum or plasma albumin luis urement (mass/volume)Ordered By: Shilpa Contreras on 12-14-2024 Albumin [Mass/Vol] 4.0 g/dL Normal 3.4-4.8 [facility] Comment on above: Performed By: #### L 100.0100, L500.4050, L300.3900 ####[facility] [address] [place], [address] Serum or plasma albumin/glob ulin mass ratioOrdered By: Shilpa Ben on 12-14-2024 Albumin/Globulin [Mass ratio] 1.6 {ratio} Normal 0.9-2.4 [facility] Comment on above: Performed By: #### L 100.0100, L500.4050, L300.3900 ####[facility] [address] [place], [address] Serum or plasma alkaline kathleen sphatase measurementOrdered By: Shilpa Ben on 12-14-2024 ALP [Catalytic activity/Vol] 70 U/L 40-129 [facility] Total proteinOrdered By: Roverto donovan Contreras on 12-14-2024 Protein [Mass/Vol] 6.6 g/dL 5.9-8.4 [facility] Absolute lymphocyte countOrd ered By: Remus Ungkevin on 12-13-2024 Lymphocytes Auto (Unsp spec) [#/Vol] 1.16 10*3/uL 0.83-4.51 [facility] Absolute neutrophil countOrd ered By: Remus Ungur on 12-13-2024 Neutrophils (Bld) [#/Vol] 4.0 10*3/uL 2.0-7.7 [facility] Anion gap in Serum or Plasma Ordered By: Remus Aaron on 12-13-2024 Anion gap [Moles/Vol] 13 mmol/L 5-15 [facility] Automated lymphocyte count a s percentage of total leukocytesOrdered By: Remus Walker on 12-13-2024 Lymphocytes/100 WBC Auto (Unsp spec) 19.5 % 19-41 [facility] BUN/creatinine ratioOrdered By: Charis Walker on 12-13-2024 Urea nitrogen/Creatinine [Mass ratio] 11.0 mg/mg 10-20 [facility] Basic Metabolic Profile (BMP )on 12-13-2024 BUN/CRE 11.0 RATIO Normal -20 [facility] Comment on above: Performed By: #### L 500.2500, L100.0100 ####[facility] [address] [place], [address] Calcium [Mass/Vol] 9.7 mg/dL Normal 7.6-11.0 [facility] Comment on above: Performed By: #### L 500.2500, L100.0100 ####[facility] [address] [place], [address] Chloride [Moles/Vol] 104 mmol/L Normal 98-108 [facility] Comment on above: Performed By: #### L 500.2500, L100.0100 ####[facility] [address] [place], [address] CO2 [Moles/Vol] 24.4 mmol/L Normal 21.0-32.0 [facility] Comment on above: Performed By: #### L 500.2500, L100.0100 ####[facility] [address] [place], [address] Creatinine [Mass/Vol] 1.11 mg/dL Normal 0.70-1.20 [facility] Comment on above: Performed By: #### L 500.2500, L100.0100 ####[facility] [address] [place], [address] ECRCL 55.63 ml/min Normal 50-250 [facility] Comment on above: Performed By: #### L 500.2500, L100.0100 ####[facility] [address] [place], [address] GAP 13 Normal 5-15 [facility] Comment on above: Performed By: #### L 500.2500, L100.0100 ####[facility] [address] [place], [address] GFR/1.73 sq M.predicted among non-blacks MDRD (S/P/Bld) [Vol rate/Area] 69 mL/min/{1.73_m2} Normal >60 [facility] Comment on above: Result Comment: mL/m in/1.73m2 CKD-EPI Creatinine Equation (2020) Performed By: #### L 500.2500, L100.0100 ####[facility] [address] [place], [address] Glucose [Mass/Vol] 102 mg/dL High 70-99 [facility] Comment on above: Performed By: #### L 500.2500, L100.0100 ####[facility] [address] [place], [address] Potassium [Moles/Vol] 3.7 mmol/L Normal 3.3-5.1 [facility] Comment on above: Performed By: #### L 500.2500, L100.0100 ####[facility] [address] [place], [address] Sodium [Moles/Vol] 141 mmol/L Normal 133-145 [facility] Comment on above: Performed By: #### L 500.2500, L100.0100 ####[facility] [address] [place], [address] Urea nitrogen [Mass/Vol] 12 mg/dL Normal 4-19 [facility] Comment on above: Performed By: #### L 500.2500, L100.0100 ####[facility] [address] [place], [address] Basophil percentageOrdered B y: Remus Ungur on 12-13-2024 Basophils/100 WBC (Bld) 1.0 % 0-1 [facility] Blood cultureOrdered By: Rem us Ungur on 12-13-2024 Bacteria identified Cx Nom (Bld) No growth in 5 days. [facility] Bacteria identified Cx Nom (Bld) No growth in 5 days. [facility] CBC W/Diff, Automatedon - Absolute Lymph 1.16 X10 3/uL Normal 0.83-4.51 [facility] Comment on above: Performed By: #### L 500.2500, L100.0100 ####[facility] [address] [place], [address] Absolute Neut 4.0 X10 3/uL Normal 2.0-7.7 [facility] Comment on above: Performed By: #### L 500.2500, L100.0100 ####[facility] [address] [place], [address] Basophils/100 WBC (Bld) 1.0 % Normal 0-1 [facility] Comment on above: Performed By: #### L 500.2500, L100.0100 ####[facility] [address] [place], [address] Eosinophils/100 WBC (Bld) 3.0 % Normal 0-5 [facility] Comment on above: Performed By: #### L 500.2500, L100.0100 ####[facility] [address] [place], [address] Erythrocyte distribution width (RBC) [Ratio] 13.7 % Normal 11.6-14.6 [facility] Comment on above: Performed By: #### L 500.2500, L100.0100 ####[facility] [address] [place], [address] Hematocrit (Bld) [Volume fraction] 37.5 % Low 40-54 [facility] Comment on above: Performed By: #### L 500.2500, L100.0100 ####[facility] [address] [place], [address] Hemoglobin (Bld) [Mass/Vol] 11.5 g/dL Low 13.0-16.5 [facility] Comment on above: Performed By: #### L 500.2500, L100.0100 ####[facility] [address] [place], [address] IG% 0.300 Normal 0.0-0.9 [facility] Comment on above: Result Comment: IG% - Immature Granulocytes (promyelocytes, myelocytes andmetamyelocytes) > 1% indicates that a LEFT SHIFT is Present. Performed By: #### L 500.2500, L100.0100 ####[facility] [address] [place], [address] Lymphocytes/100 WBC (Bld) 19.5 % Normal 19-41 [facility] Comment on above: Performed By: #### L 500.2500, L100.0100 ####[facility] [address] [place], [address] MCH (RBC) [Entitic mass] 27.7 pg Normal 27.0-32.0 [facility] Comment on above: Performed By: #### L 500.2500, L100.0100 ####[facility] [address] [place], [address] MCHC (RBC) [Mass/Vol] 30.7 g/dL Low 32-36 [facility] Comment on above: Performed By: #### L 500.2500, L100.0100 ####[facility] [address] [place], [address] MCV (RBC) [Entitic vol] 90.4 fL Normal 80-94 [facility] Comment on above: Performed By: #### L 500.2500, L100.0100 ####[facility] [address] [place], [address] Monocytes/100 WBC (Bld) 8.9 % Normal 0-10 [facility] Comment on above: Performed By: #### L 500.2500, L100.0100 ####[facility] [address] [place], [address] Neutrophils/100 WBC (Bld) 67.3 % Normal 47-70 [facility] Comment on above: Performed By: #### L 500.2500, L100.0100 ####[facility] [address] [place], [address] Nucleated RBC (Bld) [#/Vol] 0 10*3/uL Normal 0-5 [facility] Comment on above: Performed By: #### L 500.2500, L100.0100 ####[facility] [address] [place], [address] Platelet mean volume (Bld) [Entitic vol] 9.7 fL Normal 6.2-12.0 [facility] Comment on above: Performed By: #### L 500.2500, L100.0100 ####[facility] [address] [place], [address] Platelets (Bld) [#/Vol] 299 10*3/uL Normal 150-450 [facility] Comment on above: Performed By: #### L 500.2500, L100.0100 ####[facility] [address] [place], [address] RBC (Bld) [#/Vol] 4.15 10*6/uL Low 4.6-6.2 [facility] Comment on above: Performed By: #### L 500.2500, L100.0100 ####[facility] [address] [place], [address] RDW SD 44.8 fl High 35.1-43.9 [facility] Comment on above: Performed By: #### L 500.2500, L100.0100 ####[facility] [address] [place], [address] WBC (Bld) [#/Vol] 5.9 10*3/uL Normal 4.4-11.0 [facility] Comment on above: Performed By: #### L 500.2500, L100.0100 ####[facility] [address] [place], [address] CO2 (BldV) [Moles/Vol]Ordere d By: Shilpa Contreras on 12-13-2024 CO2 [Moles/Vol] 28 mmol/L 23-33 [facility] Carbon dioxide, total [Moles /volume] in Central venous bloodOrdered By: Charis Walker on 12-13-2024 CO2 [Moles/Vol] 24.4 mmol/L 21.0-32.0 [facility] Chest 1 View (Portable)on Chest 1 View (Portable) Normal [facility] Chloride assayOrdered By: Ame Walker on 12-13-2024 Chloride [Moles/Vol] 104 mmol/L 98-108 [facility] Emergency Department Summary on 12-13-2024 Emergency Department Summary Normal [facility] Eosinophil percentageOrdered By: Charis Walker on 12-13-2024 Eosinophils/100 WBC (Bld) 3.0 % 0-5 [facility] Erythrocyte distribution wid th ratioOrdered By: Charis Walker on 12-13-2024 Erythrocyte distribution width (RBC) [Ratio] 13.7 % 11.6-14.6 [facility] Erythrocyte distribution wid th standard deviationOrdered By: Charis Walker on 12-13-2024 Erythrocyte distribution width (RBC) [Ratio] 44.8 fl High 35.1-43.9 [facility] Glomerular filtration rate ( GFR) estimation/1.73 sq m using serum, plasma, or whole bOrdered By: Charis Walker on 12-13-2024 GFR/1.73 sq M.predicted among non-blacks MDRD (S/P/Bld) [Vol rate/Area] 69 mL/min/{1.73_m2} >60 [facility] Comment on above: mL/min/1.73m2 CKD-EP I Creatinine Equation (2020) H AND P Exam - [facility] 12-13-2024 H&P Exam - Hospitalist Normal [facility] Hematocrit Auto (Bld) [Volum e fraction]Ordered By: Charis Walker on 12-13-2024 Hematocrit (Bld) [Volume fraction] 37.5 % Low 40-54 [facility] Hemoglobin measurementOrdere d By: Charis Walker on 12-13-2024 Hemoglobin (Bld) [Mass/Vol] 11.5 g/dL Low 13.0-16.5 [facility] Immature granulocytes/100 WB C Auto (Bld)Ordered By: Charis Walker on 12-13-2024 Immature granulocytes/100 WBC (Bld) 0.300 % 0.0-0.9 [facility] Comment on above: IG% - Immature Granu locytes (promyelocytes, myelocytes and metamyelocytes) > 1% indicates that a LEFT SHIFT is Present. Influenza virus A and B and SARS-CoV-2 (COVID-19) and Respiratory syncytial virus RNAOrdered By: Charis Walker on 12-13-2024 SARS-CoV-2 (COVID-19) RNA ALEENA+probe Ql (Unsp spec) [facility] International normalized rat io (INR) calculationOrdered By: Charis Walker on 12-13-2024 INR Coag (Bld) [Relative time] 0.9 {INR} [facility] L509.7001on 12-13-2024 Procalcitonin 0.05 ng/mL Normal <=0.10 [facility] Comment on above: Result Comment: Inte rpretation:<0.10-0.25 ng/mL: Antibiotic therapy discouraged. Bacterialinfection unlikely.0.25-0.50 ng/mL: Antibiotic therapy encouraged. Bacterialinfection possible.>0.50 ng/mL: Antibiotic therapy strongly encouraged.Suggestive of presence of bacterial infection.PCT should always be interpreted in the clinical context ofthe patient. Therefore, clinicians should use the PCTresults in conjunction with other laboratory findings andclinical signs of the patient. Performed By: #### L 509.7001 ####[facility] [address] [place], [address] M100.678on 12-13-2024 M100.678 Pending SARS-CoV-2 (COVID 19) Negative INFLUENZA A Negative INFLUENZA B Negative RSV PCR Negative Normal [facility] Comment on above: Performed By: #### M 100.678 ####[facility] [address] [place], [address] MCV (mean corpuscular volume ) determinationOrdered By: Charis Walker on 12-13-2024 MCV (RBC) [Entitic vol] 90.4 fL 80-94 [facility] Mean corpuscular hemoglobin (MCH) determinationOrdered By: Charis Walker on 12-13-2024 MCH (RBC) [Entitic mass] 27.7 pg 27.0-32.0 [facility] Mean corpuscular hemoglobin concentration (MCHC) determinationOrdered By: Charis Walker on 12-13-2024 MCHC (RBC) [Mass/Vol] 30.7 g/dL Low 32-36 [facility] Mean platelet volume determi nationOrdered By: Charis Walker on 12-13-2024 Platelet mean volume (Bld) [Entitic vol] 9.7 fL 6.2-12.0 [facility] Monocyte percentageOrdered B y: Charis Walker on 12-13-2024 Monocytes/100 WBC (Bld) 8.9 % 0-10 [facility] Neutrophil percentageOrdered By: Charis Walker on 12-13-2024 Neutrophils/100 WBC (Bld) 67.3 % 47-70 [facility] No Panel InformationOrdered By: Shilpa Contreras on 12-13-2024 Blood Gas Sample Site Not entered [facility] Blood Gas Specimen Type LASHAE [facility] Oxygen Delivery Device Cannula [facility] LASHAE [facility] Not entered [facility] Cannula [facility] Nucleated red blood cell per centageOrdered By: Charis Walker on 12-13-2024 Nucleated RBC/100 WBC (Bld) [Ratio] 0 % 0-5 [facility] Platelet countOrdered By: Ame Walker on 12-13-2024 Platelets (Bld) [#/Vol] 299 10*3/uL 150-450 [facility] Potassium measurement (mass/ volume)Ordered By: Charis Walker on 12-13-2024 Potassium (Unsp spec) [Mass/Vol] 3.7 mmol/L 3.3-5.1 [facility] Procalcitonin [Mass/volume] in Serum or Plasma by ImmunoassayOrdered By: Shilpa Contreras on 12-13-2024 Procalcitonin IA [Mass/Vol] 0.05 ng/mL <0.11 [facility] Prothrombin Time w/INRon INR Coag (PPP) [Relative time] 0.9 {INR} Normal [facility] Comment on above: Performed By: #### L 315.6380 ####[facility] [address] [place], [place], [address] PT Coag (PPP) [Time] 12.5 s Normal 11.7-14.9 [facility] Comment on above: Performed By: #### L 300.3900 ####[facility] [address] [place], [place], [id number] Prothrombin timeOrdered By: Charis Walker on 12-13-2024 PT Coag (PPP) [Time] 12.5 s 11.7-14.9 [facility] RBC Auto (Bld) [#/Vol]Ordere d By: Charis Walker on 12-13-2024 RBC (Bld) [#/Vol] 4.15 10*6/uL Low 4.6-6.2 [facility] Respiratory pathogens detect ion panel by molecular detection methodOrdered By: Shilpa Contreras on 12-13-2024 Respiratory pathogens DNA and RNA panel ALEENA+probe (Resp) [facility] Serum creatinine measurement (mass/volume)Ordered By: Charis Walker on 12-13-2024 Creatinine [Mass/Vol] 1.11 mg/dL 0.70-1.20 [facility] Serum glucose measurement (m ass/volume)Ordered By: Charis Walker on 12-13-2024 Glucose [Mass/Vol] 102 mg/dL High 70-99 [facility] Serum or plasma calcium luis urement (mass/volume)Ordered By: [facility] on 12-13-2024 Calcium [Mass/Vol] 9.7 mg/dL 7.6-11.0 [facility] Serum or plasma urea nitroge n measurement (mass/volume)Ordered By: Charis Walker on 12-13-2024 Urea nitrogen [Mass/Vol] 12 mg/dL 4-19 [facility] Sodium levelOrdered By: Nelson Walker on 12-13-2024 Sodium [Moles/Vol] 141 mmol/L 133-145 [facility] Venous Blood Gason 5 Blood Gas Type LASHAE Normal [facility] Comment on above: Performed By: #### L 9000.0810 ####[facility] [address] [place], [place], [address] CO2 [Moles/Vol] 28 mmol/L Normal 23-33 [facility] Comment on above: Performed By: #### L 9000.0810 ####[facility] [address] [place], [address] FI02 4.0 Normal [facility] Comment on above: Performed By: #### L 9000.0810 ####[facility] [address] [place], [address] HCO3 (Bld) [Moles/Vol] 26 mmol/L Normal 22-26 [facility] Comment on above: Performed By: #### L 9000.0810 ####[facility] [address] [place], [address] O2 Delivery Dev Cannula Normal [facility] Comment on above: Performed By: #### L 9000.0810 ####[facility] [address] [place], [address] SITE Not entered Normal [facility] Comment on above: Performed By: #### L 9000.0810 ####[facility] [address] [place], [address] VBG BE 2 mmol/L Normal -1.0-3.5 [facility] Comment on above: Performed By: #### L 9000.0810 ####[facility] [address] [place], [address] VBG pCO2 42.7 mmHg Normal 41-51 [facility] Comment on above: Performed By: #### L 9000.0810 ####[facility] [address] [place], [address] VBG pH 7.40 Normal 7.32-7.42 [facility] Comment on above: Performed By: #### L 9000.0810 ####[facility] [address] [place], [address] VBG PO2 56 mmHg High 25-40 [facility] Comment on above: Performed By: #### L 9000.0810 ####[facility] [address] [place], [place], [address] VBG SO2 89 High 50-70 [facility] Comment on above: Performed By: #### L 9000.0810 ####[facility] [address] [place], [place], [address] Venous blood base excess arlyn surementOrdered By: Shilpa Contreras on 12-13-2024 Base excess Calc (BldV) [Moles/Vol] 2 mmol/L -1.0-3.5 [facility] Venous blood bicarbonate arlyn surementOrdered By: Shilpa Contreras on 12-13-2024 HCO3 (Bld) [Moles/Vol] 26 mmol/L 22-26 [facility] Venous blood oxygen saturati on measurementOrdered By: Shilpa Contreras on 12-13-2024 Oxygen saturation in Blood 89 % High 50-70 [facility] Venous blood pH measurementO rdered By: Shilpa Contreras on 12-13-2024 pH (BldV) 7.40 [pH] 7.32-7.42 [facility] Venous blood partial pressur e of carbon dioxide measurementOrdered By: Shilpa Contreras on 12-13-2024 CO2 (BldV) [Partial pressure] 42.7 mm[Hg] 41-51 [facility] Venous blood partial pressur e of oxygen measurementOrdered By: Shilpa Contreras on 12-13-2024 Oxygen (BldV) [Partial pressure] 56 mm[Hg] High 25-40 [facility] White blood cell (WBC) count Ordered By: Charis Walker on 12-13-2024 WBC (Bld) [#/Vol] 5.9 10*3/uL 4.4-11.0 [facility] CBC W Auto Differential pane l (Bld)on 12-12-2024 Basophils (Bld) [#/Vol] 0.09 10*3/uL [facility] Basophils/100 WBC (Bld) 1.5 % C [facility] Differential cell count method Nom (Bld) Auto [facility] Eosinophils (Bld) [#/Vol] 0.22 10*3/uL [facility] Eosinophils/100 WBC (Bld) 3.7 % [facility] Erythrocyte distribution width (RBC) [Ratio] 13.8 % 11.5 - 15.0 % [facility] Hematocrit (Bld) [Volume fraction] 38.3 % Low 39.0 - 51.0 % [facility] Hemoglobin (Bld) [Mass/Vol] 11.7 g/dL Low 13.0 - 17.0 g/dL [facility] Immature granulocytes (Bld) [#/Vol] [facility] Immature granulocytes/100 WBC (Bld) 0.3 % [facility] Interpretation and review of laboratory results Abnormal [facility] Lymphocytes (Bld) [#/Vol] 0.8 10*3/uL Low [facility] Lymphocytes/100 WBC (Bld) 13.6 % [facility] MCH (RBC) [Entitic mass] 27.9 pg 26. 0 - 34.0 pg [facility] MCHC (RBC) [Mass/Vol] 30.5 g/dL 30.5 - 36.0 g/dL [facility] MCV (RBC) [Entitic vol] 91.4 fL 80.0 - 100.0 fL [facility] Monocytes (Bld) [#/Vol] 0.51 10*3/uL [facility] Monocytes/100 WBC (Bld) 8.7 % C [facility] Neutrophils (Bld) [#/Vol] 4.25 10*3/uL [facility] Neutrophils/100 WBC (Bld) 72.2 % [facility] Nucleated RBC (Bld) [#/Vol] [facility] Nucleated RBC/100 WBC (Bld) [Ratio] 0 % /100 WBC [facility] Platelet mean volume (Bld) [Entitic vol] 10.5 fL 9.0 - 12.7 fL [facility] Platelets (Bld) [#/Vol] 310 10*3/uL [facility] RBC (Bld) [#/Vol] 4.19 10*6/uL Low 4.20 - 6.0 0 m/uL [facility] WBC (Bld) [#/Vol] 5.89 10*3/uL [facility] Anion gap in Serum or Plasma Ordered By: Carla Crane on 12-02-2024 Anion gap [Moles/Vol] 11 mmol/L -15 [facility] BUN/creatinine ratioOrdered By: Carla Crane on 12-02-2024 Urea nitrogen/Creatinine [Mass ratio] 23.5 mg/mg High - [facility] Basic Metabolic Profile (BMP )on 12-02-2024 BUN/CRE 23.5 RATIO High - [facility] Comment on above: Order Comment: 307.2 Performed By: #### L 100.0500, L500.2500, L506.1001 ####[facility] [address] [place], [address] Calcium [Mass/Vol] 9.4 mg/dL Normal 7.6-11.0 [facility] Comment on above: Order Comment: 307.2 Performed By: #### L 100.0500, L500.2500, L506.1001 ####[facility] [address] [place], [address] Chloride [Moles/Vol] 104 mmol/L Normal 98-108 [facility] Comment on above: Order Comment: 307.2 Performed By: #### L 100.0500, L500.2500, L506.1001 ####[facility] [address] [place], [address] CO2 [Moles/Vol] 25.5 mmol/L Normal 21.0-32.0 [facility] Comment on above: Order Comment: 307.2 Performed By: #### L 100.0500, L500.2500, L506.1001 ####[facility] [address] [place], [address] Creatinine [Mass/Vol] 1.21 mg/dL High 0.70-1.20 [facility] Comment on above: Order Comment: 307.2 Performed By: #### L 100.0500, L500.2500, L506.1001 ####[facility] [address] [place], [address] GAP 11 Normal 5-15 [facility] Comment on above: Order Comment: 307.2 Performed By: #### L 100.0500, L500.2500, L506.1001 ####[facility] [address] [place], [address] GFR/1.73 sq M.predicted among non-blacks MDRD (S/P/Bld) [Vol rate/Area] 62 mL/min/{1.73_m2} Normal >60 [facility] Comment on above: Order Comment: 307.2 Result Comment: mL/m in/1.73m2 CKD-EPI Creatinine Equation (2020) Performed By: #### L 100.0500, L500.2500, L506.1001 ####[facility] [address] [place], [address] Glucose [Mass/Vol] 86 mg/dL Normal 70-99 [facility] Comment on above: Order Comment: 307.2 Performed By: #### L 100.0500, L500.2500, L506.1001 ####[facility] [address] [place], [address] Potassium [Moles/Vol] 4.1 mmol/L Normal 3.3-5.1 [facility] Comment on above: Order Comment: 307.2 Performed By: #### L 100.0500, L500.2500, L506.1001 ####[facility] [address] [place], [address] Sodium [Moles/Vol] 141 mmol/L Normal 133-145 [facility] Comment on above: Order Comment: 307.2 Performed By: #### L 100.0500, L500.2500, L506.1001 ####[facility] [address] [place], [address] Urea nitrogen [Mass/Vol] 28 mg/dL High 4-19 [facility] Comment on above: Order Comment: 307.2 Performed By: #### L 100.0500, L500.2500, L506.1001 ####[facility] [address] [place], [address] CBC-Complete Blood Cnt No Di ffon 12-02-2024 Erythrocyte distribution width (RBC) [Ratio] 13.2 % Normal 11.6-14.6 [facility] Comment on above: Order Comment: 307.2 Performed By: #### L 100.0500, L500.2500, L506.1001 ####[facility] [address] [place], [address] Hematocrit (Bld) [Volume fraction] 35.2 % Low 40-54 [facility] Comment on above: Order Comment: 307.2 Performed By: #### L 100.0500, L500.2500, L506.1001 ####[facility] [address] [place], [address] Hemoglobin (Bld) [Mass/Vol] 11.1 g/dL Low 13.0-16.5 [facility] Comment on above: Order Comment: 307.2 Performed By: #### L 100.0500, L500.2500, L506.1001 ####[facility] [address] [place], [address] MCH (RBC) [Entitic mass] 28.6 pg Normal 27.0-32.0 [facility] Comment on above: Order Comment: 307.2 Performed By: #### L 100.0500, L500.2500, L506.1001 ####[facility] [address] [place], [address] MCHC (RBC) [Mass/Vol] 31.5 g/dL Low 32-36 [facility] Comment on above: Order Comment: 307.2 Performed By: #### L 100.0500, L500.2500, L506.1001 ####[facility] [address] [place], [address] MCV (RBC) [Entitic vol] 90.7 fL Normal 80-94 [facility] Comment on above: Order Comment: 307.2 Performed By: #### L 100.0500, L500.2500, L506.1001 ####[facility] [address] [place], [address] Platelet mean volume (Bld) [Entitic vol] 10.2 fL Normal 6.2-12.0 [facility] Comment on above: Order Comment: 307.2 Performed By: #### L 100.0500, L500.2500, L506.1001 ####[facility] [address] [place], [address] Platelets (Bld) [#/Vol] 314 10*3/uL Normal 150-450 [facility] Comment on above: Order Comment: 307.2 Performed By: #### L 100.0500, L500.2500, L506.1001 ####[facility] [address] [place], [address] RBC (Bld) [#/Vol] 3.88 10*6/uL Low 4.6-6.2 [facility] Comment on above: Order Comment: 307.2 Performed By: #### L 100.0500, L500.2500, L506.1001 ####[facility] [address] [place], [address] RDW SD 43.6 fl Normal 35.1-43.9 [facility] Comment on above: Order Comment: 307.2 Performed By: #### L 100.0500, L500.2500, L506.1001 ####[facility] [address] [place], [address] WBC (Bld) [#/Vol] 5.1 10*3/uL Normal 4.4-11.0 [facility] Comment on above: Order Comment: 307.2 Performed By: #### L 100.0500, L500.2500, L506.1001 ####[facility] [address] [place], [address] Carbon dioxide, total [Moles /volume] in Central venous bloodOrdered By: Carla Crane on 12-02-2024 CO2 [Moles/Vol] 25.5 mmol/L 21.0-32.0 [facility] Chloride assayOrdered By: Wilfredo Crane on 12-02-2024 Chloride [Moles/Vol] 104 mmol/L 98-108 [facility] Erythrocyte distribution wid th ratioOrdered By: Carla Crane on 12-02-2024 Erythrocyte distribution width (RBC) [Ratio] 13.2 % 11.6-14.6 [facility] Erythrocyte distribution wid th standard deviationOrdered By: Carla Crane on 12-02-2024 Erythrocyte distribution width (RBC) [Ratio] 43.6 fl 35.1-43.9 [facility] Glomerular filtration rate ( GFR) estimation/1.73 sq m using serum, plasma, or whole bOrdered By: Carla Crane on 12-02-2024 GFR/1.73 sq M.predicted among non-blacks MDRD (S/P/Bld) [Vol rate/Area] 62 mL/min/{1.73_m2} >60 [facility] Comment on above: mL/min/1.73m2 CKD-EP I Creatinine Equation (2020) Hematocrit Auto (Bld) [Volum e fraction]Ordered By: Carla Crane on 12-02-2024 Hematocrit (Bld) [Volume fraction] 35.2 % Low 40-54 [facility] Hemoglobin measurementOrdere d By: Carla Crane on 12-02-2024 Hemoglobin (Bld) [Mass/Vol] 11.1 g/dL Low 13.0-16.5 [facility] MCV (mean corpuscular volume ) determinationOrdered By: Carla Crane on 12-02-2024 MCV (RBC) [Entitic vol] 90.7 fL 80-94 [facility] Mean corpuscular hemoglobin (MCH) determinationOrdered By: Carla Crane on 12-02-2024 MCH (RBC) [Entitic mass] 28.6 pg 27.0-32.0 [facility] Mean corpuscular hemoglobin concentration (MCHC) determinationOrdered By: Carla Crane on 12-02-2024 MCHC (RBC) [Mass/Vol] 31.5 g/dL Low 32-36 [facility] Mean platelet volume determi nationOrdered By: Carla Crane on 12-02-2024 Platelet mean volume (Bld) [Entitic vol] 10.2 fL 6.2-12.0 [facility] Platelet countOrdered By: Wilfredo Crane on 12-02-2024 Platelets (Bld) [#/Vol] 314 10*3/uL 150-450 [facility] Potassium measurement (mass/ volume)Ordered By: Carla Crane on 12-02-2024 Potassium (Unsp spec) [Mass/Vol] 4.1 mmol/L 3.3-5.1 [facility] RBC Auto (Bld) [#/Vol]Ordere d By: Carla Crane on 12-02-2024 RBC (Bld) [#/Vol] 3.88 10*6/uL Low 4.6-6.2 [facility] Serum creatinine measurement (mass/volume)Ordered By: Carla Crane on 12-02-2024 Creatinine [Mass/Vol] 1.21 mg/dL High 0.70-1.20 [facility] Serum glucose measurement (m ass/volume)Ordered By: Carla Crane on 12-02-2024 Glucose [Mass/Vol] 86 mg/dL 70-99 [facility] Serum or plasma calcium luis urement (mass/volume)Ordered By: Carla Crane on 12-02-2024 Calcium [Mass/Vol] 9.4 mg/dL 7.6-11.0 [facility] Serum or plasma urea nitroge n measurement (mass/volume)Ordered By: Carla Crane on 12-02-2024 Urea nitrogen [Mass/Vol] 28 mg/dL High 4-19 [facility] Sodium levelOrdered By: Luca Crane on 12-02-2024 Sodium [Moles/Vol] 141 mmol/L 133-145 [facility] Vitamin D,25 Hydroxyon 12-02 Vitamin D 25-OH 46.6 ng/mL Normal 30-100 [facility] Comment on above: Order Comment: 307.2 Result Comment: Teri min D StatusDeficiency: <20 ng/mL (50nmol/L)Insufficiency: 20-30 ng/mL (50-75 nmol/L)Sufficiency: 30-100 ng/mL (75-250 nmol/L)Toxicity: >100 ng/mL (>250 nmol/L) Performed By: #### L 100.0500, L500.2500, L506.1001 ####[facility] [address] [place], [place], [id number] White blood cell (WBC) count Ordered By: Carla Crane on 12-02-2024 WBC (Bld) [#/Vol] 5.1 10*3/uL 4.4-11.0 [facility] Calculated very low density lipoprotein (VLDL) cholesterol measurementOrdered By: Carla Crane on 11-05-2024 Calculated very low density lipoprotein (VLDL) cholesterol measurement 13 mg/dL 5-40 [facility] LDL calc ser/plasOrdered By: Carla Crane on 11-05-2024 Cholesterol in LDL [Mass/Vol] 63 mg/dL [facility] Comment on above: Rzgsgnaikq=473-931 m g/dL & Higher Ltum=998 mg/dL or greater Lipid Profileon 11-05-2024 CHOL:HDL 2.18 Normal [facility] Comment on above: Order Comment: 307.2 Performed By: #### L 500.4100, L506.1001 ####[facility] [address] [place], [place], [id number] Cholesterol [Mass/Vol] 140 mg/dL Normal <=200 [facility] Comment on above: Order Comment: 307.2 Result Comment: Chol esterol level, Desirable <200 mg/dLBorderline high cholesterol 200-239 mg/dLHigh cholesterol >=240 mg/dLRecommendations of the NCEP Adult Treatment Panel for thefollowing risk-cutoff thresholds for the [place] Americanpulation. Performed By: #### L 500.4100, L506.1001 ####[facility] [address] [place], [address] Cholesterol in HDL [Mass/Vol] 64 mg/dL Normal [facility] Comment on above: Order Comment: 307.2 Result Comment: Yasmin onal Cholesterol Education Program (NCEP) guidelines:<40 mg/dL: Low HDL-cholesterol (major risk factor for CHD)>= 60 mg/dL: High HDL-cholesterol (negative risk factor forCHD)HDL-cholesterol is affected by a number of factors, e.g.smoking, exercise, hormones, sex and age. Performed By: #### L 500.4100, L506.1001 ####[facility] [address] [place], [address] Cholesterol in LDL [Mass/Vol] 63 mg/dL Normal [facility] Comment on above: Order Comment: 307.2 Result Comment: Bord klndqi=375-936 mg/dL Higher Zzgq=139 mg/dL or greater Performed By: #### L 500.4100, L506.1001 ####[facility] [address] [place], [address] Cholesterol in VLDL [Mass/Vol] 13 mg/dL Normal 5-40 [facility] Comment on above: Order Comment: 307.2 Performed By: #### L 500.4100, L506.1001 ####[facility] [address] [place], [address] Triglyceride [Mass/Vol] 63 mg/dL Normal [facility] Comment on above: Order Comment: 307.2 Result Comment: The drugs N-Acetylcysteine and Metamizole may falselydepress this assay.Normal range: <150 mg/dLBorderline High: 150-199 mg/dLHigh: 200-499 mg/dLVery High: >500 mg/dL Performed By: #### L 500.4100, L506.1001 ####[facility] [address] [place], [address] Screening total cholesterol/ high density lipoprotein (HDL) cholesterol ratioOrdered By: Carla Crane on 11-05-2024 Cholesterol.total/Choles terol in HDL [Mass ratio] 2.18 {ratio} [facility] Serum or plasma cholesterol in HDL measurement (mass/volume)Ordered By: Carla Crane on 11-05-2024 Cholesterol in HDL [Mass/Vol] 64 mg/dL >40 [facility] Comment on above: National Cholesterol Education Program (NCEP) guidelines:<40 mg/dL: Low HDL-cholesterol (major risk factor for CHD)>= 60 mg/dL: High HDL-cholesterol (negative risk factor for CHD)HDL-cholesterol is affected by a number of factors, e.g. smoking, exercise, hormones, sex and age. Serum or plasma cholesterol measurement (mass/volume)Ordered By: Carla Crane on 11-05-2024 Cholesterol [Mass/Vol] 140 mg/dL <201 [facility] Comment on above: Cholesterol level, D esirable <200 mg/dLBorderline high cholesterol 200-239 mg/dLHigh cholesterol >=240 mg/dLRecommendations of the NCEP Adult Treatment Panel for the following risk-cutoff thresholds for the [place] population. Triglycerides measurementOrd ered By: Carla Crane on 11-05-2024 Triglyceride [Mass/Vol] 63 mg/dL <199 [facility] Comment on above: The drugs N-Acetylcy steine and Metamizole may falsely depress this assay. Normal range: <150 mg/dLBorderline High: 150-199 mg/dLHigh: 200-499 mg/dLVery High: >500 mg/dL Vitamin D,25 Hydroxyon 11-05 Vitamin D 25-OH 51.2 ng/mL Normal 30-100 [facility] Comment on above: Order Comment: 307.2 Result Comment: Teri min D StatusDeficiency: <20 ng/mL (50nmol/L)Insufficiency: 20-30 ng/mL (50-75 nmol/L)Sufficiency: 30-100 ng/mL (75-250 nmol/L)Toxicity: >100 ng/mL (>250 nmol/L) Performed By: #### L 500.3000, L506.1001 ####[facility] [address] [place], [address] Lipid Profileon 11-04-2024 CHOL Normal <=200 [facility] Comment on above: Order Comment: 307-2 Result Comment: MICHOACANO ENT REFUSED-NOTFIED NURSE Performed By: #### L 500.4100 ####[facility] [address] [place], [address] CHOL:HDL Normal [facility] Comment on above: Order Comment: 307-2 Result Comment: MICHOACANO ENT REFUSED-NOTFIED NURSE Performed By: #### L 500.4100 ####[facility] [address] [place], [address] CLDL Normal [facility] Comment on above: Order Comment: 307-2 Result Comment: MICHOACANO ENT REFUSED-NOTFIED NURSE Performed By: #### L 500.4100 ####[facility] [address] [place], [address] HDL Normal [facility] Comment on above: Order Comment: 307-2 Result Comment: MICHOACANO ENT REFUSED-NOTFIED NURSE Performed By: #### L 500.4100 ####[facility] [address] [place], [address] TRIG Normal [facility] Comment on above: Order Comment: 307-2 Result Comment: MICHOACANO ENT REFUSED-NOTFIED NURSE Performed By: #### L 500.4100 ####[facility] [address] [place], [address] VLDL Normal 5-40 [facility] Comment on above: Order Comment: 307-2 Result Comment: MICHOACANO ENT REFUSED-NOTFIED NURSE Performed By: #### L 500.4100 ####[facility] [address] [place], [address] Carbamazepine (Tegretol)on 0 10-16-2024 CARBAMAZEPINE 7.1 ug/mL Normal 4.0-12.0 [facility] Comment on above: Order Comment: 300 Performed By: #### L 501.7900 ####[facility] [address] [place], [address] Serum or plasma carbamazepin e level (mass/volume)Ordered By: Carla Crane on 10-16-2024 carBAMazepine [Mass/Vol] 7.1 ug/mL 4.0-12.0 [facility] Urine Cultureon 09-08-2024 URC Normal [facility] Comment on above: Performed By: #### M 100.2200, L400.0001 ####[facility] [address] [place], [address] Anion gap in Serum or Plasma Ordered By: Celia Toribio on 09-02-2024 Anion gap [Moles/Vol] 11 mmol/L 5-15 [facility] BUN/creatinine ratioOrdered By: Celia Toribio on 09-02-2024 Urea nitrogen/Creatinine [Mass ratio] 27.0 mg/mg High 10-20 [facility] Basic Metabolic Profile (BMP )on 09-02-2024 BUN/CRE 27.0 RATIO High [facility] Comment on above: Performed By: #### L 500.2500, L100.0100 ####[facility] [address] [place], [address] Calcium [Mass/Vol] 9.2 mg/dL Normal 7.6-11.0 [facility] Comment on above: Performed By: #### L 500.2500, L100.0100 ####[facility] [address] [place], [address] Chloride [Moles/Vol] 106 mmol/L Normal 98-108 [facility] Comment on above: Performed By: #### L 500.2500, L100.0100 ####[facility] [address] [place], [address] CO2 [Moles/Vol] 20.8 mmol/L Low 21.0-32.0 [facility] Comment on above: Performed By: #### L 500.2500, L100.0100 ####[facility] [address] [place], [address] Creatinine [Mass/Vol] 1.22 mg/dL High 0.70-1.20 [facility] Comment on above: Performed By: #### L 500.2500, L100.0100 ####[facility] [address] [place], [address] ECRCL 50.54 ml/min Normal 50-250 [facility] Comment on above: Performed By: #### L 500.2500, L100.0100 ####[facility] [address] [place], [address] GAP 11 Normal 5-15 [facility] Comment on above: Performed By: #### L 500.2500, L100.0100 ####[facility] [address] [place], [address] GFR/1.73 sq M.predicted among non-blacks MDRD (S/P/Bld) [Vol rate/Area] 62 mL/min/{1.73_m2} Normal >60 [facility] Comment on above: Result Comment: mL/m in/1.73m2 CKD-EPI Creatinine Equation (2020) Performed By: #### L 500.2500, L100.0100 ####[facility] [address] [place], [address] Glucose [Mass/Vol] 99 mg/dL Normal 70-99 [facility] Comment on above: Performed By: #### L 500.2500, L100.0100 ####[facility] [address] [place], [address] Potassium [Moles/Vol] 4.0 mmol/L Normal 3.3-5.1 [facility] Comment on above: Performed By: #### L 500.2500, L100.0100 ####[facility] [address] [place], [address] Sodium [Moles/Vol] 138 mmol/L Normal 133-145 [facility] Comment on above: Performed By: #### L 500.2500, L100.0100 ####[facility] [address] [place], [address] Urea nitrogen [Mass/Vol] 33 mg/dL High 4-19 [facility] Comment on above: Performed By: #### L 500.2500, L100.0100 ####[facility] [address] [place], [address] CBC W/Diff, Automatedon 08-17 Absolute Neut Normal 2.0-7.7 [facility] Comment on above: Result Comment: Canc elled via OM: MD Ordered Performed By: #### L 500.2500, L100.0100 ####[facility] [address] [place], [address] HCT Normal 40-54 [facility] Comment on above: Result Comment: Canc elled via OM: MD Ordered Performed By: #### L 500.2500, L100.0100 ####[facility] [address] [place], [address] HGB Normal 13.0-16.5 [facility] Comment on above: Result Comment: Canc elled via OM: MD Ordered Performed By: #### L 500.2500, L100.0100 ####[facility] [address] [place], [address] MCH Normal 27.0-32.0 [facility] Comment on above: Result Comment: Canc elled via OM: MD Ordered Performed By: #### L 500.2500, L100.0100 ####[facility] [address] [place], [address] MCHC Normal 32-36 [facility] Comment on above: Result Comment: Canc elled via OM: MD Ordered Performed By: #### L 500.2500, L100.0100 ####[facility] [address] [place], [address] MCV Normal 80-94 [facility] Comment on above: Result Comment: Canc elled via OM: MD Ordered Performed By: #### L 500.2500, L100.0100 ####[facility] [address] [place], [address] NEUT% Normal 47-70 [facility] Comment on above: Result Comment: Canc elled via OM: MD Ordered Performed By: #### L 500.2500, L100.0100 ####[facility] [address] [place], [address] PLT Normal 150-450 [facility] Comment on above: Result Comment: Canc elled via OM: MD Ordered Performed By: #### L 500.2500, L100.0100 ####[facility] [address] [place], [address] RBC Normal 4.6-6.2 [facility] Comment on above: Result Comment: Canc elled via OM: MD Ordered Performed By: #### L 500.2500, L100.0100 ####[facility] [address] [place], [address] RDW CV Normal 11.6-14.6 [facility] Comment on above: Result Comment: Canc elled via OM: MD Ordered Performed By: #### L 500.2500, L100.0100 ####[facility] [address] [place], [address] RDW SD Normal 35.1-43.9 [facility] Comment on above: Result Comment: Canc elled via OM: MD Ordered Performed By: #### L 500.2500, L100.0100 ####[facility] [address] [place], [address] WBC Normal 4.4-11.0 [facility] Comment on above: Result Comment: Bethanie luna via OM: Ordered Performed By: #### L 500.2500, L100.0100 ####[facility] [address] [place], [address] Carbon dioxide, total [Moles /volume] in Central venous bloodOrdered By: Celia Toribio on 09-02-2024 CO2 [Moles/Vol] 20.8 mmol/L Low 21.0-32.0 [facility] Chloride assayOrdered By: Yariel Toribio on 09-02-2024 Chloride [Moles/Vol] 106 mmol/L 98-108 [facility] Estimation of creatinine zeke aranceOrdered By: Celia Toribio on 09-02-2024 Estimated Creatinine Clearance Calc 50.54 ml/min 50-250 [facility] GFR/1.73 sq M.predicted gisella g non-blacks MDRD (S/P/Bld) [Vol rate/Area]Ordered By: Celia Toribio on 09-02-2024 Estimated GFR (MDRD) Non-Af Amer 62 >60 [facility] Comment on above: mL/min/1.73m2 CKD-EP I Creatinine Equation (2020) Glomerular filtration rate ( GFR) estimation/1.73 sq m using serum, plasma, or whole bOrdered By: Celia Toribio on 09-02-2024 GFR/1.73 sq M.predicted among non-blacks MDRD (S/P/Bld) [Vol rate/Area] 62 mL/min/{1.73_m2} >60 [facility] Comment on above: mL/min/1.73m2 CKD-EP I Creatinine Equation (2020) Potassium (Unsp spec) [Mass/ Vol]Ordered By: Celia Toribio on 09-02-2024 Potassium [Moles/Vol] 4.0 mmol/L 3.3-5.1 [facility] Potassium measurement (mass/ volume)Ordered By: Celia Toribio on 09-02-2024 Potassium (Unsp spec) [Mass/Vol] 4.0 mmol/L 3.3-5.1 [facility] Serum creatinine measurement (mass/volume)Ordered By: Celia Toribio on 09-02-2024 Creatinine [Mass/Vol] 1.22 mg/dL High 0.70-1.20 [facility] Serum glucose measurement (m ass/volume)Ordered By: Celia Toribio on 09-02-2024 Glucose [Mass/Vol] 99 mg/dL 70-99 [facility] Serum or plasma calcium luis urement (mass/volume)Ordered By: Celia Toribio on 09-02-2024 Calcium [Mass/Vol] 9.2 mg/dL 7.6-11.0 [facility] Serum or plasma urea nitroge n measurement (mass/volume)Ordered By: Celia Toribio on 09-02-2024 Urea nitrogen [Mass/Vol] 33 mg/dL High 4-19 [facility] Sodium levelOrdered By: Rigoberto Toribio on 09-02-2024 Sodium [Moles/Vol] 138 mmol/L 133-145 [facility] Absolute lymphocyte countOrd ered By: Celia Toribio on 09-01-2024 Lymphocytes Auto (Unsp spec) [#/Vol] 1.45 10*3/uL 0.83-4.51 [facility] Absolute neutrophil countOrd ered By: Celia Toribio on 09-01-2024 Neutrophils (Bld) [#/Vol] 4.9 10*3/uL 2.0-7.7 [facility] Automated lymphocyte count a s percentage of total leukocytesOrdered By: Celia Toribio on 09-01-2024 Lymphocytes/100 WBC Auto (Unsp spec) 20.9 % 19-41 [facility] Basic Metabolic Profile (BMP )on 09-01-2024 BUN/CRE 26.8 RATIO High 10-20 [facility] Comment on above: Order Comment: PT RE FUSED REPORTED TO SEYMOUR STORY. SEYMOUR STORY SAID SHE WOULDTRY TO DRAW. Performed By: #### L 500.7647 ####[facility] [address] [place], [address] Calcium [Mass/Vol] 9.6 mg/dL Normal 7.6-11.0 [facility] Comment on above: Order Comment: PT RE FUSED REPORTED TO SEYMOUR JEZ. RN JEZ SAID SHE WOULDTRY TO DRAW. Performed By: #### L 500.2500 ####[facility] [address] [place], [address] Chloride [Moles/Vol] 102 mmol/L Normal 98-108 [facility] Comment on above: Order Comment: PT RE FUSED REPORTED TO RN JEZ. RN JEZ SAID SHE WOULDTRY TO DRAW. Performed By: #### L 500.2500 ####[facility] [address] [facility] [address] CO2 [Moles/Vol] 21.9 mmol/L Normal 21.0-32.0 [facility] Comment on above: Order Comment: PT RE FUSED REPORTED TO RN JEZ. RN JEZ SAID SHE WOULDTRY TO DRAW. Performed By: #### L 500.2500 ####[facility] [address] [facility] [address] Creatinine [Mass/Vol] 1.44 mg/dL High 0.70-1.20 [facility] Comment on above: Order Comment: PT RE FUSED REPORTED TO RN JEZ. RN JEZ SAID SHE WOULDTRY TO DRAW. Performed By: #### L 500.2500 ####[facility] [address] [facility] [address] ECRCL 42.38 ml/min Low 50-250 [facility] Comment on above: Order Comment: PT RE FUSED REPORTED TO RN JEZ. RN JEZ SAID SHE WOULDTRY TO DRAW. Performed By: #### L 500.2500 ####[facility] [address] [facility] [address] GAP 13 Normal 5-15 [facility] Comment on above: Order Comment: PT RE FUSED REPORTED TO RN JEZ. RN JEZ SAID SHE WOULDTRY TO DRAW. Performed By: #### L 500.2500 ####[facility] [address] [facility] [address] GFR/1.73 sq M.predicted among non-blacks MDRD (S/P/Bld) [Vol rate/Area] 51 mL/min/{1.73_m2} Low >60 [facility] Comment on above: Order Comment: PT RE FUSED REPORTED TO SEYMOUR STORY. RN JEZ SAID SHE WOULDTRY TO DRAW. Result Comment: mL/m in/1.73m2 CKD-EPI Creatinine Equation (2020) Performed By: #### L 500.2500 ####[facility] [address] [facility] [address] Glucose [Mass/Vol] 118 mg/dL High 70-99 [facility] Comment on above: Order Comment: PT RE FUSED REPORTED TO SEYMOUR STORY. RN JEZ SAID SHE WOULDTRY TO DRAW. Performed By: #### L 500.2500 ####[facility] [address] [facility] [address] Potassium [Moles/Vol] 4.1 mmol/L Normal 3.3-5.1 [facility] Comment on above: Order Comment: PT RE FUSED REPORTED TO SEYMOUR STORY. RN JEZ SAID SHE WOULDTRY TO DRAW. Performed By: #### L 500.2500 ####[facility] [address] [facility] [address] Sodium [Moles/Vol] 137 mmol/L Normal 133-145 [facility] Comment on above: Order Comment: PT RE FUSED REPORTED TO SEYMOUR STORY. RN JEZ SAID SHE WOULDTRY TO DRAW. Performed By: #### L 500.2500 ####[facility] [address] [facility] [address] Urea nitrogen [Mass/Vol] 39 mg/dL High 4-19 [facility] Comment on above: Order Comment: PT RE FUSED REPORTED TO SEYMOUR STORY. SEYMOUR STORY SAID SHE WOULDTRY TO DRAW. Performed By: #### L 500.2500 ####[facility] [address] [place], [address] BUN/CRE 30.2 RATIO High 10-20 [facility] Comment on above: Performed By: #### L 100.0100, L500.2500 ####[facility] [address] [place], [address] Calcium [Mass/Vol] 9.7 mg/dL Normal 7.6-11.0 [facility] Comment on above: Performed By: #### L 100.0100, L500.2500 ####[facility] [address] [place], [address] Chloride [Moles/Vol] 103 mmol/L Normal 98-108 [facility] Comment on above: Performed By: #### L 100.0100, L500.2500 ####[facility] [address] [place], [address] CO2 [Moles/Vol] 19.4 mmol/L Low 21.0-32.0 [facility] Comment on above: Performed By: #### L 100.0100, L500.2500 ####[facility] [address] [place], [address] Creatinine [Mass/Vol] 1.33 mg/dL High 0.70-1.20 [facility] Comment on above: Performed By: #### L 100.0100, L500.2500 ####[facility] [address] [place], [address] ECRCL 45.89 ml/min Low 50-250 [facility] Comment on above: Performed By: #### L 100.0100, L500.2500 ####[facility] [address] [place], [address] GAP 16 High 5-15 [facility] Comment on above: Performed By: #### L 100.0100, L500.2500 ####[facility] [address] [place], [address] GFR/1.73 sq M.predicted among non-blacks MDRD (S/P/Bld) [Vol rate/Area] 56 mL/min/{1.73_m2} Low >60 [facility] Comment on above: Result Comment: mL/m in/1.73m2 CKD-EPI Creatinine Equation (2020) Performed By: #### L 100.0100, L500.2500 ####[facility] [address] [place], [address] Glucose [Mass/Vol] 83 mg/dL Normal 70-99 [facility] Comment on above: Performed By: #### L 100.0100, L500.2500 ####[facility] [address] [place], [address] Potassium [Moles/Vol] 3.8 mmol/L Normal 3.3-5.1 [facility] Comment on above: Performed By: #### L 100.0100, L500.2500 ####[facility] [address] [place], [address] Sodium [Moles/Vol] 139 mmol/L Normal 133-145 [facility] Comment on above: Performed By: #### L 100.0100, L500.2500 ####[facility] [address] [place], [address] Urea nitrogen [Mass/Vol] 40 mg/dL High 4-19 [facility] Comment on above: Performed By: #### L 100.0100, L500.2500 ####[facility] [address] [place], [address] Basophil percentageOrdered B y: Celia Toribio on 09-01-2024 Basophils/100 WBC (Bld) 1.0 % 0-1 [facility] CBC W/Diff, Automatedon 08-17 Absolute Lymph 1.45 X10 3/uL Normal 0.83-4.51 [facility] Comment on above: Performed By: #### L 100.0100 ####[facility] [address] [place], [address] Absolute Neut 4.9 X10 3/uL Normal 2.0-7.7 [facility] Comment on above: Performed By: #### L 100.0100 ####[facility] [address] [place], [address] Basophils/100 WBC (Bld) 1.0 % Normal 0-1 [facility] Comment on above: Performed By: #### L 100.0100 ####[facility] [address] [place], [address] Eosinophils/100 WBC (Bld) 0.4 % Normal 0-5 [facility] Comment on above: Performed By: #### L 100.0100 ####[facility] [address] [place], [address] Erythrocyte distribution width (RBC) [Ratio] 13.3 % Normal 11.6-14.6 [facility] Comment on above: Performed By: #### L 100.0100 ####[facility] [address] [place], [address] Hematocrit (Bld) [Volume fraction] 43.2 % Normal 40-54 [facility] Comment on above: Performed By: #### L 100.0100 ####[facility] [address] [place], [address] Hemoglobin (Bld) [Mass/Vol] 14.1 g/dL Normal 13.0-16.5 [facility] Comment on above: Performed By: #### L 100.0100 ####[facility] [address] [place], [address] IG% 0.600 Normal 0.0-0.9 [facility] Comment on above: Result Comment: IG% - Immature Granulocytes (promyelocytes, myelocytes andmetamyelocytes) > 1% indicates that a LEFT SHIFT is Present. Performed By: #### L 100.0100 ####[facility] [address] [place], [address] Lymphocytes/100 WBC (Bld) 20.9 % Normal 19-41 [facility] Comment on above: Performed By: #### L 100.0100 ####[facility] [address] [place], [address] MCH (RBC) [Entitic mass] 31.4 pg Normal 27.0-32.0 [facility] Comment on above: Performed By: #### L 100.0100 ####[facility] [address] [place], [address] MCHC (RBC) [Mass/Vol] 32.6 g/dL Normal 32-36 [facility] Comment on above: Performed By: #### L 100.0100 ####[facility] [address] [place], [address] MCV (RBC) [Entitic vol] 96.2 fL High 80-94 [facility] Comment on above: Performed By: #### L 100.0100 ####[facility] [address] [place], [address] Monocytes/100 WBC (Bld) 6.2 % Normal 0-10 [facility] Comment on above: Performed By: #### L 100.0100 ####[facility] [address] [place], [address] Neutrophils/100 WBC (Bld) 70.9 % High 47-70 [facility] Comment on above: Performed By: #### L 100.0100 ####[facility] [address] [place], [address] Nucleated RBC (Bld) [#/Vol] 0 10*3/uL Normal 0-5 [facility] Comment on above: Performed By: #### L 100.0100 ####[facility] [address] [place], [address] Platelet mean volume (Bld) [Entitic vol] 9.5 fL Normal 6.2-12.0 [facility] Comment on above: Performed By: #### L 100.0100 ####[facility] [address] [place], [address] Platelets (Bld) [#/Vol] 367 10*3/uL Normal 150-450 [facility] Comment on above: Performed By: #### L 100.0100 ####[facility] [address] [place], [address] RBC (Bld) [#/Vol] 4.49 10*6/uL Low 4.6-6.2 [facility] Comment on above: Performed By: #### L 100.0100 ####[facility] [address] [place], [address] RDW SD 47.4 fl High 35.1-43.9 [facility] Comment on above: Performed By: #### L 100.0100 ####[facility] [address] [place], [address] WBC (Bld) [#/Vol] 6.9 10*3/uL Normal 4.4-11.0 [facility] Comment on above: Performed By: #### L 100.0100 ####[facility] [address] [place], [address] Absolute Neut Normal 2.0-7.7 [facility] Comment on above: Result Comment: Bethanie luna via TINO: Ordered Performed By: #### L 100.0100, L500.2500 ####[facility] [address] [place], [address] HCT Normal 40-54 [facility] Comment on above: Result Comment: Canc elled via OM: MD Ordered Performed By: #### L 100.0100, L500.2500 ####[facility] [address] [place], [address] HGB Normal 13.0-16.5 [facility] Comment on above: Result Comment: Canc elled via OM: MD Ordered Performed By: #### L 100.0100, L500.2500 ####[facility] [address] [place], [address] MCH Normal 27.0-32.0 [facility] Comment on above: Result Comment: Canc elled via OM: MD Ordered Performed By: #### L 100.0100, L500.2500 ####[facility] [address] [place], [address] MCHC Normal 32-36 [facility] Comment on above: Result Comment: Canc elled via OM: MD Ordered Performed By: #### L 100.0100, L500.2500 ####[facility] [address] [place], [address] MCV Normal 80-94 [facility] Comment on above: Result Comment: Canc elled via OM: MD Ordered Performed By: #### L 100.0100, L500.2500 ####[facility] [address] [place], [address] NEUT% Normal 47-70 [facility] Comment on above: Result Comment: Canc elled via OM: MD Ordered Performed By: #### L 100.0100, L500.2500 ####[facility] [address] [place], [address] PLT Normal 150-450 [facility] Comment on above: Result Comment: Canc elled via OM: MD Ordered Performed By: #### L 100.0100, L500.2500 ####[facility] [address] [place], [address] RBC Normal 4.6-6.2 [facility] Comment on above: Result Comment: Canc elled via OM: MD Ordered Performed By: #### L 100.0100, L500.2500 ####[facility] [address] [place], [address] RDW CV Normal 11.6-14.6 [facility] Comment on above: Result Comment: Canc elled via OM: MD Ordered Performed By: #### L 100.0100, L500.2500 ####[facility] [address] [place], [address] RDW SD Normal 35.1-43.9 [facility] Comment on above: Result Comment: Canc elled via OM: MD Ordered Performed By: #### L 100.0100, L500.2500 ####[facility] [address] [place], [address] WBC Normal 4.4-11.0 [facility] Comment on above: Result Comment: Canc elled via OM: MD Ordered Performed By: #### L 100.0100, L500.2500 ####[facility] [address] [place], [address] Eosinophil percentageOrdered By: Celia Toribio on 09-01-2024 Eosinophils/100 WBC (Bld) 0.4 % 0-5 [facility] Erythrocyte distribution wid th ratioOrdered By: Celia Toribio on 09-01-2024 Erythrocyte distribution width (RBC) [Ratio] 13.3 % 11.6-14.6 [facility] Erythrocyte distribution wid th standard deviationOrdered By: Celia Toribio on 09-01-2024 Erythrocyte distribution width (RBC) [Entitic vol] 47.4 fL High 35.1-43.9 [facility] Erythrocyte distribution width (RBC) [Ratio] 47.4 fl High 35.1-43.9 [facility] Hematocrit Auto (Bld) [Volum e fraction]Ordered By: Celia Toribio on 09-01-2024 Hematocrit (Bld) [Volume fraction] 43.2 % 40-54 [facility] Hemoglobin measurementOrdere d By: Celia Toribio on 09-01-2024 Hemoglobin (Bld) [Mass/Vol] 14.1 g/dL 13.0-16.5 [facility] Immature granulocytes/100 WB C Auto (Bld)Ordered By: Celia Toribio on 09-01-2024 Immature granulocytes/100 WBC (Bld) 0.600 % 0.0-0.9 [facility] Comment on above: IG% - Immature Granu locytes (promyelocytes, myelocytes and metamyelocytes) > 1% indicates that a LEFT SHIFT is Present. Lymphocytes Auto (Unsp spec) [#/Vol]Ordered By: Celia Toribio on 09-01-2024 Lymphocytes (Bld) [#/Vol] 1.45 10*3/uL 0.83-4.51 [facility] Lymphocytes/100 WBC Auto (Un sp spec)Ordered By: Celia Toribio on 09-01-2024 Lymphocytes/100 WBC (Bld) 20.9 % 19-41 [facility] MCV (mean corpuscular volume ) determinationOrdered By: Celia Toribio on 09-01-2024 MCV (RBC) [Entitic vol] 96.2 fL High 80-94 [facility] Mean corpuscular hemoglobin (MCH) determinationOrdered By: Celia Toribio on 09-01-2024 MCH (RBC) [Entitic mass] 31.4 pg 27.0-32.0 [facility] Mean corpuscular hemoglobin concentration (MCHC) determinationOrdered By: Celia Toribio on 09-01-2024 MCHC (RBC) [Mass/Vol] 32.6 g/dL 32-36 [facility] Mean platelet volume determi nationOrdered By: Celia Toribio on 09-01-2024 Platelet mean volume (Bld) [Entitic vol] 9.5 fL 6.2-12.0 [facility] Monocyte percentageOrdered B y: Celia Toribio on 09-01-2024 Monocytes/100 WBC (Bld) 6.2 % 0-10 [facility] Neutrophil percentageOrdered By: Celia Toribio on 09-01-2024 Neutrophils/100 WBC (Bld) 70.9 % High 47-70 [facility] Nucleated red blood cell per centageOrdered By: Celia Toribio on 09-01-2024 Nucleated RBC/100 WBC (Bld) [Ratio] 0 % 0-5 [facility] Platelet countOrdered By: Yariel Toribio on 09-01-2024 Platelets (Bld) [#/Vol] 367 10*3/uL 150-450 [facility] RBC Auto (Bld) [#/Vol]Ordere d By: Celia Toribio on 09-01-2024 RBC (Bld) [#/Vol] 4.49 10*6/uL Low 4.6-6.2 [facility] White blood cell (WBC) count Ordered By: Celia Toribio on 09-01-2024 WBC (Bld) [#/Vol] 6.9 10*3/uL 4.4-11.0 [facility] Basic Metabolic Profile (BMP )on 08-31-2024 BUN/CRE 25.7 RATIO High 10-20 [facility] Comment on above: Performed By: #### L 500.2500, L100.0100 ####[facility] [address] [place], [address] Calcium [Mass/Vol] 10.0 mg/dL Normal 7.6-11.0 [facility] Comment on above: Performed By: #### L 500.2500, L100.0100 ####[facility] [address] [place], [address] Chloride [Moles/Vol] 102 mmol/L Normal 98-108 [facility] Comment on above: Performed By: #### L 500.2500, L100.0100 ####[facility] [address] [place], [address] CO2 [Moles/Vol] 21.5 mmol/L Normal 21.0-32.0 [facility] Comment on above: Performed By: #### L 500.2500, L100.0100 ####[facility] [address] [place], [address] Creatinine [Mass/Vol] 1.16 mg/dL Normal 0.70-1.20 [facility] Comment on above: Performed By: #### L 500.2500, L100.0100 ####[facility] [address] [place], [address] ECRCL 52.61 ml/min Normal 50-250 [facility] Comment on above: Performed By: #### L 500.2500, L100.0100 ####[facility] [address] [place], [address] GAP 15 Normal 5-15 [facility] Comment on above: Performed By: #### L 500.2500, L100.0100 ####[facility] [address] [place], [address] GFR/1.73 sq M.predicted among non-blacks MDRD (S/P/Bld) [Vol rate/Area] 66 mL/min/{1.73_m2} Normal >60 [facility] Comment on above: Result Comment: mL/m in/1.73m2 CKD-EPI Creatinine Equation (2020) Performed By: #### L 500.2500, L100.0100 ####[facility] [address] [place], [address] Glucose [Mass/Vol] 93 mg/dL Normal 70-99 [facility] Comment on above: Performed By: #### L 500.2500, L100.0100 ####[facility] [address] [place], [address] Potassium [Moles/Vol] 3.8 mmol/L Normal 3.3-5.1 [facility] Comment on above: Performed By: #### L 500.2500, L100.0100 ####[facility] [address] [place], [address] Sodium [Moles/Vol] 138 mmol/L Normal 133-145 [facility] Comment on above: Performed By: #### L 500.2500, L100.0100 ####[facility] [address] [place], [address] Urea nitrogen [Mass/Vol] 30 mg/dL High 4-19 [facility] Comment on above: Performed By: #### L 500.2500, L100.0100 ####[facility] [address] [place], [address] CBC W/Diff, Automatedon 08-17 Absolute Neut Normal 2.0-7.7 [facility] Comment on above: Result Comment: Canc elled via OM: MD Ordered Performed By: #### L 500.2500, L100.0100 ####[facility] [address] [place], [address] HCT Normal 40-54 [facility] Comment on above: Result Comment: Canc elled via OM: MD Ordered Performed By: #### L 500.2500, L100.0100 ####[facility] [address] [place], [address] HGB Normal 13.0-16.5 [facility] Comment on above: Result Comment: Canc elled via OM: MD Ordered Performed By: #### L 500.2500, L100.0100 ####[facility] [address] [place], [address] MCH Normal 27.0-32.0 [facility] Comment on above: Result Comment: Canc elled via OM: MD Ordered Performed By: #### L 500.2500, L100.0100 ####[facility] [address] [place], [address] MCHC Normal 32-36 [facility] Comment on above: Result Comment: Canc elled via OM: MD Ordered Performed By: #### L 500.2500, L100.0100 ####[facility] [address] [place], [address] MCV Normal 80-94 [facility] Comment on above: Result Comment: Canc elled via OM: MD Ordered Performed By: #### L 500.2500, L100.0100 ####[facility] [address] [place], [address] NEUT% Normal 47-70 [facility] Comment on above: Result Comment: Canc elled via OM: MD Ordered Performed By: #### L 500.2500, L100.0100 ####[facility] [address] [place], [address] PLT Normal 150-450 [facility] Comment on above: Result Comment: Canc elled via OM: MD Ordered Performed By: #### L 500.2500, L100.0100 ####[facility] [address] [place], [address] RBC Normal 4.6-6.2 [facility] Comment on above: Result Comment: Canc elled via OM: MD Ordered Performed By: #### L 500.2500, L100.0100 ####[facility] [address] [place], [address] RDW CV Normal 11.6-14.6 [facility] Comment on above: Result Comment: Canc elled via OM: MD Ordered Performed By: #### L 500.2500, L100.0100 ####[facility] [address] [place], [address] RDW SD Normal 35.1-43.9 [facility] Comment on above: Result Comment: Canc elled via OM: MD Ordered Performed By: #### L 500.2500, L100.0100 ####[facility] [address] [place], [address] WBC Normal 4.4-11.0 [facility] Comment on above: Result Comment: Canc elled via OM: MD Ordered Performed By: #### L 500.2500, L100.0100 ####[facility] [address] [place], [address] Basic Metabolic Profile (BMP )on 08-30-2024 BUN/CRE 21.4 RATIO High 10-20 [facility] Comment on above: Performed By: #### L 500.2500, L100.0100 ####[facility] [address] [place], [address] Calcium [Mass/Vol] 10.1 mg/dL Normal 7.6-11.0 [facility] Comment on above: Performed By: #### L 500.2500, L100.0100 ####[facility] [address] [place], [address] Chloride [Moles/Vol] 102 mmol/L Normal 98-108 [facility] Comment on above: Performed By: #### L 500.2500, L100.0100 ####[facility] [address] [place], [address] CO2 [Moles/Vol] 22.7 mmol/L Normal 21.0-32.0 [facility] Comment on above: Performed By: #### L 500.2500, L100.0100 ####[facility] [address] [place], [address] Creatinine [Mass/Vol] 1.21 mg/dL High 0.70-1.20 [facility] Comment on above: Performed By: #### L 500.2500, L100.0100 ####[facility] [address] [place], [address] ECRCL 51.03 ml/min Normal 50-250 [facility] Comment on above: Performed By: #### L 500.2500, L100.0100 ####[facility] [address] [place], [address] GAP 13 Normal 5-15 [facility] Comment on above: Performed By: #### L 500.2500, L100.0100 ####[facility] [address] [place], [address] GFR/1.73 sq M.predicted among non-blacks MDRD (S/P/Bld) [Vol rate/Area] 62 mL/min/{1.73_m2} Normal >60 [facility] Comment on above: Result Comment: mL/m in/1.73m2 CKD-EPI Creatinine Equation (2020) Performed By: #### L 500.2500, L100.0100 ####[facility] [address] [place], [address] Glucose [Mass/Vol] 94 mg/dL Normal 70-99 [facility] Comment on above: Performed By: #### L 500.2500, L100.0100 ####[facility] [address] [place], [address] Potassium [Moles/Vol] 4.2 mmol/L Normal 3.3-5.1 [facility] Comment on above: Performed By: #### L 500.2500, L100.0100 ####[facility] [address] [place], [address] Sodium [Moles/Vol] 138 mmol/L Normal 133-145 [facility] Comment on above: Performed By: #### L 500.2500, L100.0100 ####[facility] [address] [place], [address] Urea nitrogen [Mass/Vol] 26 mg/dL High 4-19 [facility] Comment on above: Performed By: #### L 500.2500, L100.0100 ####[facility] [address] [place], [address] CBC W/Diff, Automatedon 03- Absolute Lymph 1.00 X10 3/uL Normal 0.83-4.51 [facility] Comment on above: Performed By: #### L 500.2500, L100.0100 ####[facility] [address] [place], [address] Absolute Neut 3.7 X10 3/uL Normal 2.0-7.7 [facility] Comment on above: Performed By: #### L 500.2500, L100.0100 ####[facility] [address] [place], [address] Basophils/100 WBC (Bld) 1.6 % High 0-1 [facility] Comment on above: Performed By: #### L 500.2500, L100.0100 ####[facility] [address] [place], [address] Eosinophils/100 WBC (Bld) 7.8 % High 0-5 [facility] Comment on above: Performed By: #### L 500.2500, L100.0100 ####[facility] [address] [place], [address] Erythrocyte distribution width (RBC) [Ratio] 13.3 % Normal 11.6-14.6 [facility] Comment on above: Performed By: #### L 500.2500, L100.0100 ####[facility] [address] [place], [address] Hematocrit (Bld) [Volume fraction] 41.8 % Normal 40-54 [facility] Comment on above: Performed By: #### L 500.2500, L100.0100 ####[facility] [address] [place], [address] Hemoglobin (Bld) [Mass/Vol] 13.8 g/dL Normal 13.0-16.5 [facility] Comment on above: Performed By: #### L 500.2500, L100.0100 ####[facility] [address] [place], [address] IG% 0.400 Normal 0.0-0.9 [facility] Comment on above: Result Comment: IG% - Immature Granulocytes (promyelocytes, myelocytes andmetamyelocytes) > 1% indicates that a LEFT SHIFT is Present. Performed By: #### L 500.2500, L100.0100 ####[facility] [address] [place], [address] Lymphocytes/100 WBC (Bld) 17.8 % Low 19-41 [facility] Comment on above: Performed By: #### L 500.2500, L100.0100 ####[facility] [address] [place], [address] MCH (RBC) [Entitic mass] 31.9 pg Normal 27.0-32.0 [facility] Comment on above: Performed By: #### L 500.2500, L100.0100 ####[facility] [address] [place], [address] MCHC (RBC) [Mass/Vol] 33.0 g/dL Normal 32-36 [facility] Comment on above: Performed By: #### L 500.2500, L100.0100 ####[facility] [address] [place], [address] MCV (RBC) [Entitic vol] 96.5 fL High 80-94 [facility] Comment on above: Performed By: #### L 500.2500, L100.0100 ####[facility] [address] [place], [address] Monocytes/100 WBC (Bld) 7.6 % Normal 0-10 [facility] Comment on above: Performed By: #### L 500.2500, L100.0100 ####[facility] [address] [place], [address] Neutrophils/100 WBC (Bld) 64.8 % Normal 47-70 [facility] Comment on above: Performed By: #### L 500.2500, L100.0100 ####[facility] [address] [place], [address] Nucleated RBC (Bld) [#/Vol] 0 10*3/uL Normal 0-5 [facility] Comment on above: Performed By: #### L 500.2500, L100.0100 ####[facility] [address] [place], [address] Platelet mean volume (Bld) [Entitic vol] 9.7 fL Normal 6.2-12.0 [facility] Comment on above: Performed By: #### L 500.2500, L100.0100 ####[facility] [address] [place], [address] Platelets (Bld) [#/Vol] 309 10*3/uL Normal 150-450 [facility] Comment on above: Performed By: #### L 500.2500, L100.0100 ####[facility] [address] [place], [address] RBC (Bld) [#/Vol] 4.33 10*6/uL Low 4.6-6.2 [facility] Comment on above: Performed By: #### L 500.2500, L100.0100 ####[facility] [address] [place], [address] RDW SD 47.7 fl High 35.1-43.9 [facility] Comment on above: Performed By: #### L 500.2500, L100.0100 ####[facility] [address] [place], [address] WBC (Bld) [#/Vol] 5.6 10*3/uL Normal 4.4-11.0 [facility] Comment on above: Performed By: #### L 500.2500, L100.0100 ####[facility] [address] [place], [address] Consultation - Infectious Dx on 08-30-2024 Consultation - Infectious Dx Normal [facility] Basic Metabolic Profile (BMP )on 08-29-2024 BUN/CRE 24.6 RATIO High 10-20 [facility] Comment on above: Performed By: #### L 100.0100, L500.2500 ####[facility] [address] [place], [address] Calcium [Mass/Vol] 10.0 mg/dL Normal 7.6-11.0 [facility] Comment on above: Performed By: #### L 100.0100, L500.2500 ####[facility] [address] [place], [address] Chloride [Moles/Vol] 104 mmol/L Normal 98-108 [facility] Comment on above: Performed By: #### L 100.0100, L500.2500 ####[facility] [address] [place], [address] CO2 [Moles/Vol] 22.8 mmol/L Normal 21.0-32.0 [facility] Comment on above: Performed By: #### L 100.0100, L500.2500 ####[facility] [address] [place], [address] Creatinine [Mass/Vol] 1.21 mg/dL High 0.70-1.20 [facility] Comment on above: Performed By: #### L 100.0100, L500.2500 ####[facility] [address] [place], [address] ECRCL 51.03 ml/min Normal 50-250 [facility] Comment on above: Performed By: #### L 100.0100, L500.2500 ####[facility] [address] [place], [address] GAP 14 Normal 5-15 [facility] Comment on above: Performed By: #### L 100.0100, L500.2500 ####[facility] [address] [place], [address] GFR/1.73 sq M.predicted among non-blacks MDRD (S/P/Bld) [Vol rate/Area] 62 mL/min/{1.73_m2} Normal >60 [facility] Comment on above: Result Comment: mL/m in/1.73m2 CKD-EPI Creatinine Equation (2020) Performed By: #### L 100.0100, L500.2500 ####[facility] [address] [place], [address] Glucose [Mass/Vol] 91 mg/dL Normal 70-99 [facility] Comment on above: Performed By: #### L 100.0100, L500.2500 ####[facility] [address] [place], [address] Potassium [Moles/Vol] 4.1 mmol/L Normal 3.3-5.1 [facility] Comment on above: Performed By: #### L 100.0100, L500.2500 ####[facility] [address] [place], [address] Sodium [Moles/Vol] 141 mmol/L Normal 133-145 [facility] Comment on above: Performed By: #### L 100.0100, L500.2500 ####[facility] [address] [place], [address] Urea nitrogen [Mass/Vol] 30 mg/dL High 4-19 [facility] Comment on above: Performed By: #### L 100.0100, L500.2500 ####[facility] [address] [place], [address] CBC W/Diff, Automatedon - Absolute Lymph 1.17 X10 3/uL Normal 0.83-4.51 [facility] Comment on above: Performed By: #### L 100.0100, L500.2500 ####[facility] [address] [place], [address] Absolute Neut 3.1 X10 3/uL Normal 2.0-7.7 [facility] Comment on above: Performed By: #### L 100.0100, L500.2500 ####[facility] [address] [place], [address] Basophils/100 WBC (Bld) 1.3 % High 0-1 [facility] Comment on above: Performed By: #### L 100.0100, L500.2500 ####[facility] [address] [place], [address] Eosinophils/100 WBC (Bld) 8.2 % High 0-5 [facility] Comment on above: Performed By: #### L 100.0100, L500.2500 ####[facility] [address] [place], [address] Erythrocyte distribution width (RBC) [Ratio] 13.5 % Normal 11.6-14.6 [facility] Comment on above: Performed By: #### L 100.0100, L500.2500 ####[facility] [address] [place], [address] Hematocrit (Bld) [Volume fraction] 39.2 % Low 40-54 [facility] Comment on above: Performed By: #### L 100.0100, L500.2500 ####[facility] [address] [place], [address] Hemoglobin (Bld) [Mass/Vol] 12.8 g/dL Low 13.0-16.5 [facility] Comment on above: Performed By: #### L 100.0100, L500.2500 ####[facility] [address] [place], [address] IG% 0.400 Normal 0.0-0.9 [facility] Comment on above: Result Comment: IG% - Immature Granulocytes (promyelocytes, myelocytes andmetamyelocytes) > 1% indicates that a LEFT SHIFT is Present. Performed By: #### L 100.0100, L500.2500 ####[facility] [address] [place], [address] Lymphocytes/100 WBC (Bld) 22.3 % Normal 19-41 [facility] Comment on above: Performed By: #### L 100.0100, L500.2500 ####[facility] [address] [place], [address] MCH (RBC) [Entitic mass] 31.4 pg Normal 27.0-32.0 [facility] Comment on above: Performed By: #### L 100.0100, L500.2500 ####[facility] [address] [place], [address] MCHC (RBC) [Mass/Vol] 32.7 g/dL Normal 32-36 [facility] Comment on above: Performed By: #### L 100.0100, L500.2500 ####[facility] [address] [place], [address] MCV (RBC) [Entitic vol] 96.1 fL High 80-94 [facility] Comment on above: Performed By: #### L 100.0100, L500.2500 ####[facility] [address] [place], [address] Monocytes/100 WBC (Bld) 8.0 % Normal 0-10 [facility] Comment on above: Performed By: #### L 100.0100, L500.2500 ####[facility] [address] [place], [address] Neutrophils/100 WBC (Bld) 59.8 % Normal 47-70 [facility] Comment on above: Performed By: #### L 100.0100, L500.2500 ####[facility] [address] [place], [address] Nucleated RBC (Bld) [#/Vol] 0 10*3/uL Normal 0-5 [facility] Comment on above: Performed By: #### L 100.0100, L500.2500 ####[facility] [address] [place], [address] Platelet mean volume (Bld) [Entitic vol] 9.8 fL Normal 6.2-12.0 [facility] Comment on above: Performed By: #### L 100.0100, L500.2500 ####[facility] [address] [place], [address] Platelets (Bld) [#/Vol] 277 10*3/uL Normal 150-450 [facility] Comment on above: Performed By: #### L 100.0100, L500.2500 ####[facility] [address] [place], [address] RBC (Bld) [#/Vol] 4.08 10*6/uL Low 4.6-6.2 [facility] Comment on above: Performed By: #### L 100.0100, L500.2500 ####[facility] [address] [place], [address] RDW SD 47.8 fl High 35.1-43.9 [facility] Comment on above: Performed By: #### L 100.0100, L500.2500 ####[facility] [address] [place], [address] WBC (Bld) [#/Vol] 5.3 10*3/uL Normal 4.4-11.0 [facility] Comment on above: Performed By: #### L 100.0100, L500.2500 ####[facility] [address] [place], [address] Basic Metabolic Profile (BMP )on 08-28-2024 BUN/CRE 21.6 RATIO High 10-20 [facility] Comment on above: Performed By: #### L 100.0100, L500.2500 ####[facility] [address] [place], [address] Calcium [Mass/Vol] 9.8 mg/dL Normal 7.6-11.0 [facility] Comment on above: Performed By: #### L 100.0100, L500.2500 ####[facility] [address] [place], [address] Chloride [Moles/Vol] 105 mmol/L Normal 98-108 [facility] Comment on above: Performed By: #### L 100.0100, L500.2500 ####[facility] [address] [place], [address] CO2 [Moles/Vol] 21.9 mmol/L Normal 21.0-32.0 [facility] Comment on above: Performed By: #### L 100.0100, L500.2500 ####[facility] [address] [place], [address] Creatinine [Mass/Vol] 1.14 mg/dL Normal 0.70-1.20 [facility] Comment on above: Performed By: #### L 100.0100, L500.2500 ####[facility] [address] [place], [address] ECRCL 54.17 ml/min Normal 50-250 [facility] Comment on above: Performed By: #### L 100.0100, L500.2500 ####[facility] [address] [place], [address] GAP 13 Normal 5-15 [facility] Comment on above: Performed By: #### L 100.0100, L500.2500 ####[facility] [address] [place], [address] GFR/1.73 sq M.predicted among non-blacks MDRD (S/P/Bld) [Vol rate/Area] 67 mL/min/{1.73_m2} Normal >60 [facility] Comment on above: Result Comment: mL/m in/1.73m2 CKD-EPI Creatinine Equation (2020) Performed By: #### L 100.0100, L500.2500 ####[facility] [address] [place], [address] Glucose [Mass/Vol] 93 mg/dL Normal 70-99 [facility] Comment on above: Performed By: #### L 100.0100, L500.2500 ####[facility] [address] [place], [address] Potassium [Moles/Vol] 3.8 mmol/L Normal 3.3-5.1 [facility] Comment on above: Performed By: #### L 100.0100, L500.2500 ####[facility] [address] [place], [address] Sodium [Moles/Vol] 140 mmol/L Normal 133-145 [facility] Comment on above: Performed By: #### L 100.0100, L500.2500 ####[facility] [address] [place], [address] Urea nitrogen [Mass/Vol] 25 mg/dL High 4-19 [facility] Comment on above: Performed By: #### L 100.0100, L500.2500 ####[facility] [address] [place], [address] CBC W/Diff, Automatedon 08-17 Absolute Lymph 1.06 X10 3/uL Normal 0.83-4.51 [facility] Comment on above: Performed By: #### L 100.0100, L500.2500 ####[facility] [address] [place], [address] Absolute Neut 2.5 X10 3/uL Normal 2.0-7.7 [facility] Comment on above: Performed By: #### L 100.0100, L500.2500 ####[facility] [address] [place], [address] Basophils/100 WBC (Bld) 1.8 % High 0-1 [facility] Comment on above: Performed By: #### L 100.0100, L500.2500 ####[facility] [address] [place], [address] Eosinophils/100 WBC (Bld) 7.5 % High 0-5 [facility] Comment on above: Performed By: #### L 100.0100, L500.2500 ####[facility] [address] [place], [address] Erythrocyte distribution width (RBC) [Ratio] 13.3 % Normal 11.6-14.6 [facility] Comment on above: Performed By: #### L 100.0100, L500.2500 ####[facility] [address] [place], [address] Hematocrit (Bld) [Volume fraction] 39.0 % Low 40-54 [facility] Comment on above: Performed By: #### L 100.0100, L500.2500 ####[facility] [address] [place], [address] Hemoglobin (Bld) [Mass/Vol] 12.8 g/dL Low 13.0-16.5 [facility] Comment on above: Performed By: #### L 100.0100, L500.2500 ####[facility] [address] [place], [address] IG% 0.400 Normal 0.0-0.9 [facility] Comment on above: Result Comment: IG% - Immature Granulocytes (promyelocytes, myelocytes andmetamyelocytes) > 1% indicates that a LEFT SHIFT is Present. Performed By: #### L 100.0100, L500.2500 ####[facility] [address] [place], [address] Lymphocytes/100 WBC (Bld) 23.4 % Normal 19-41 [facility] Comment on above: Performed By: #### L 100.0100, L500.2500 ####[facility] [address] [place], [address] MCH (RBC) [Entitic mass] 31.1 pg Normal 27.0-32.0 [facility] Comment on above: Performed By: #### L 100.0100, L500.2500 ####[facility] [address] [place], [address] MCHC (RBC) [Mass/Vol] 32.8 g/dL Normal 32-36 [facility] Comment on above: Performed By: #### L 100.0100, L500.2500 ####[facility] [address] [place], [address] MCV (RBC) [Entitic vol] 94.7 fL High 80-94 [facility] Comment on above: Performed By: #### L 100.0100, L500.2500 ####[facility] [address] [place], [address] Monocytes/100 WBC (Bld) 11.3 % High 0-10 [facility] Comment on above: Performed By: #### L 100.0100, L500.2500 ####[facility] [address] [place], [address] Neutrophils/100 WBC (Bld) 55.6 % Normal 47-70 [facility] Comment on above: Performed By: #### L 100.0100, L500.2500 ####[facility] [address] [place], [address] Nucleated RBC (Bld) [#/Vol] 0 10*3/uL Normal 0-5 [facility] Comment on above: Performed By: #### L 100.0100, L500.2500 ####[facility] [address] [place], [address] Platelet mean volume (Bld) [Entitic vol] 9.8 fL Normal 6.2-12.0 [facility] Comment on above: Performed By: #### L 100.0100, L500.2500 ####[facility] [address] [place], [address] Platelets (Bld) [#/Vol] 279 10*3/uL Normal 150-450 [facility] Comment on above: Performed By: #### L 100.0100, L500.2500 ####[facility] [address] [place], [address] RBC (Bld) [#/Vol] 4.12 10*6/uL Low 4.6-6.2 [facility] Comment on above: Performed By: #### L 100.0100, L500.2500 ####[facility] [address] [place], [address] RDW SD 46.1 fl High 35.1-43.9 [facility] Comment on above: Performed By: #### L 100.0100, L500.2500 ####[facility] [address] [place], [address] WBC (Bld) [#/Vol] 4.5 10*3/uL Normal 4.4-11.0 [facility] Comment on above: Performed By: #### L 100.0100, L500.2500 ####[facility] [address] [place], [address] Basic Metabolic Profile (BMP )on 08-27-2024 BUN/CRE 17.2 RATIO Normal 10-20 [facility] Comment on above: Performed By: #### L 500.2500, L100.0100 ####[facility] [address] [place], [address] Calcium [Mass/Vol] 9.5 mg/dL Normal 7.6-11.0 [facility] Comment on above: Performed By: #### L 500.2500, L100.0100 ####[facility] [address] [place], [address] Chloride [Moles/Vol] 104 mmol/L Normal 98-108 [facility] Comment on above: Performed By: #### L 500.2500, L100.0100 ####[facility] [address] [place], [address] CO2 [Moles/Vol] 19.9 mmol/L Low 21.0-32.0 [facility] Comment on above: Performed By: #### L 500.2500, L100.0100 ####[facility] [address] [place], [address] Creatinine [Mass/Vol] 1.18 mg/dL Normal 0.70-1.20 [facility] Comment on above: Performed By: #### L 500.2500, L100.0100 ####[facility] [address] [place], [address] ECRCL 52.25 ml/min Normal 50-250 [facility] Comment on above: Performed By: #### L 500.2500, L100.0100 ####[facility] [address] [place], [address] GAP 14 Normal 5-15 [facility] Comment on above: Performed By: #### L 500.2500, L100.0100 ####[facility] [address] [place], [address] GFR/1.73 sq M.predicted among non-blacks MDRD (S/P/Bld) [Vol rate/Area] 64 mL/min/{1.73_m2} Normal >60 [facility] Comment on above: Result Comment: mL/m in/1.73m2 CKD-EPI Creatinine Equation (2020) Performed By: #### L 500.2500, L100.0100 ####[facility] [address] [place], [address] Glucose [Mass/Vol] 97 mg/dL Normal 70-99 [facility] Comment on above: Performed By: #### L 500.2500, L100.0100 ####[facility] [address] [place], [address] Potassium [Moles/Vol] 3.4 mmol/L Normal 3.3-5.1 [facility] Comment on above: Performed By: #### L 500.2500, L100.0100 ####[facility] [address] [place], [address] Sodium [Moles/Vol] 139 mmol/L Normal 133-145 [facility] Comment on above: Performed By: #### L 500.2500, L100.0100 ####[facility] [address] [place], [address] Urea nitrogen [Mass/Vol] 20 mg/dL High 4-19 [facility] Comment on above: Performed By: #### L 500.2500, L100.0100 ####[facility] [address] [place], [address] Bilirubin Test strip Ql (U)O rdered By: Celia Toribio on 08-27-2024 Bilirubin Ql (U) Negative Negative [facility] CBC W/Diff, Automatedon 08-17 Absolute Lymph 0.95 X10 3/uL Normal 0.83-4.51 [facility] Comment on above: Performed By: #### L 500.2500, L100.0100 ####[facility] [address] [place], [address] Absolute Neut 2.3 X10 3/uL Normal 2.0-7.7 [facility] Comment on above: Performed By: #### L 500.2500, L100.0100 ####[facility] [address] [place], [address] Basophils/100 WBC (Bld) 1.2 % High 0-1 [facility] Comment on above: Performed By: #### L 500.2500, L100.0100 ####[facility] [address] [place], [address] Eosinophils/100 WBC (Bld) 6.3 % High 0-5 [facility] Comment on above: Performed By: #### L 500.2500, L100.0100 ####[facility] [address] [place], [address] Erythrocyte distribution width (RBC) [Ratio] 13.3 % Normal 11.6-14.6 [facility] Comment on above: Performed By: #### L 500.2500, L100.0100 ####[facility] [address] [place], [address] Hematocrit (Bld) [Volume fraction] 38.4 % Low 40-54 [facility] Comment on above: Performed By: #### L 500.2500, L100.0100 ####[facility] [address] [place], [address] Hemoglobin (Bld) [Mass/Vol] 12.8 g/dL Low 13.0-16.5 [facility] Comment on above: Performed By: #### L 500.2500, L100.0100 ####[facility] [address] [place], [address] IG% 0.200 Normal 0.0-0.9 [facility] Comment on above: Result Comment: IG% - Immature Granulocytes (promyelocytes, myelocytes andmetamyelocytes) > 1% indicates that a LEFT SHIFT is Present. Performed By: #### L 500.2500, L100.0100 ####[facility] [address] [place], [address] Lymphocytes/100 WBC (Bld) 23.0 % Normal 19-41 [facility] Comment on above: Performed By: #### L 500.2500, L100.0100 ####[facility] [address] [place], [address] MCH (RBC) [Entitic mass] 31.4 pg Normal 27.0-32.0 [facility] Comment on above: Performed By: #### L 500.2500, L100.0100 ####[facility] [address] [place], [address] MCHC (RBC) [Mass/Vol] 33.3 g/dL Normal 32-36 [facility] Comment on above: Performed By: #### L 500.2500, L100.0100 ####[facility] [address] [place], [address] MCV (RBC) [Entitic vol] 94.3 fL High 80-94 [facility] Comment on above: Performed By: #### L 500.2500, L100.0100 ####[facility] [address] [place], [address] Monocytes/100 WBC (Bld) 13.1 % High 0-10 [facility] Comment on above: Performed By: #### L 500.2500, L100.0100 ####[facility] [address] [place], [address] Neutrophils/100 WBC (Bld) 56.2 % Normal 47-70 [facility] Comment on above: Performed By: #### L 500.2500, L100.0100 ####[facility] [address] [place], [address] Nucleated RBC (Bld) [#/Vol] 0 10*3/uL Normal 0-5 [facility] Comment on above: Performed By: #### L 500.2500, L100.0100 ####[facility] [address] [place], [address] Platelet mean volume (Bld) [Entitic vol] 10.0 fL Normal 6.2-12.0 [facility] Comment on above: Performed By: #### L 500.2500, L100.0100 ####[facility] [address] [place], [address] Platelets (Bld) [#/Vol] 253 10*3/uL Normal 150-450 [facility] Comment on above: Performed By: #### L 500.2500, L100.0100 ####[facility] [address] [place], [address] RBC (Bld) [#/Vol] 4.07 10*6/uL Low 4.6-6.2 [facility] Comment on above: Performed By: #### L 500.2500, L100.0100 ####[facility] [address] [place], [address] RDW SD 46.1 fl High 35.1-43.9 [facility] Comment on above: Performed By: #### L 500.2500, L100.0100 ####[facility] [address] [place], [address] WBC (Bld) [#/Vol] 4.1 10*3/uL Low 4.4-11.0 [facility] Comment on above: Performed By: #### L 500.2500, L100.0100 ####[facility] [address] [place], [address] CBC-Complete Blood Cnt No Di abdulkadiron 08-27-2024 Erythrocyte distribution width (RBC) [Ratio] 13.4 % Normal 11.6-14.6 [facility] Comment on above: Performed By: #### L 100.0500 ####[facility] [address] [place], [address] Hematocrit (Bld) [Volume fraction] 40.6 % Normal 40-54 [facility] Comment on above: Performed By: #### L 100.0500 ####[facility] [address] [place], [address] Hemoglobin (Bld) [Mass/Vol] 13.5 g/dL Normal 13.0-16.5 [facility] Comment on above: Performed By: #### L 100.0500 ####[facility] [address] [place], [address] MCH (RBC) [Entitic mass] 31.5 pg Normal 27.0-32.0 [facility] Comment on above: Performed By: #### L 100.0500 ####[facility] [address] [place], [address] MCHC (RBC) [Mass/Vol] 33.3 g/dL Normal 32-36 [facility] Comment on above: Performed By: #### L 100.0500 ####[facility] [address] [place], [address] MCV (RBC) [Entitic vol] 94.6 fL High 80-94 [facility] Comment on above: Performed By: #### L 100.0500 ####[facility] [address] [place], [address] Platelet mean volume (Bld) [Entitic vol] 9.8 fL Normal 6.2-12.0 [facility] Comment on above: Performed By: #### L 100.0500 ####[facility] [address] [place], [address] Platelets (Bld) [#/Vol] 283 10*3/uL Normal 150-450 [facility] Comment on above: Performed By: #### L 100.0500 ####[facility] [address] [place], [address] RBC (Bld) [#/Vol] 4.29 10*6/uL Low 4.6-6.2 [facility] Comment on above: Performed By: #### L 100.0500 ####[facility] [address] [place], [address] RDW SD 46.0 fl High 35.1-43.9 [facility] Comment on above: Performed By: #### L 100.0500 ####[facility] [address] [place], [address] WBC (Bld) [#/Vol] 4.9 10*3/uL Normal 4.4-11.0 [facility] Comment on above: Performed By: #### L 100.0500 ####[facility] [address] [place], [address] Epithelial cells.squamous LM Ql (Urine sed)Ordered By: Celia Toribio on 08-27-2024 Epithelial cells.squamous LM.HPF (Urine sed) [#/Area] 0 /[HPF] 0-5 [facility] Glucose Ql (U)Ordered By: Yariel Toribio on 08-27-2024 Urine Glucose (UA) Normal mg/dl Normal [facility] Ketones Test strip Ql (U)Ord ered By: Celia Toribio on 08-27-2024 Ketones Ql (U) Negative Negative [facility] Microscopic analysis of urin e for red blood cells (RBC)Ordered By: Celia Toribio on 08-27-2024 Microscopic analysis of urine for red blood cells (RBC) 0 SEEN /hpf 0-5 [facility] Urine RBC 0 SEEN /hpf 0-5 [facility] Mucus LM Ql (Urine sed)Order ed By: Celia Toribio on 08-27-2024 Mucus Ql (Urine sed) 0 SEEN /hpf [facility] Nitrite Test strip Ql (U)Ord ered By: Cleia Toribio on 08-27-2024 Nitrite Ql (U) Positive High Negative [facility] Protein Test strip Ql (U)Ord ered By: Celia Toribio on 08-27-2024 Protein Ql (U) 30 mg/dl High Negative [facility] Squamous epithelial cells de tection in urine sediment by light microscopyOrdered By: Celia Toribio on 08-27-2024 Epithelial cells.squamous LM Ql (Urine sed) 0-5 SEEN /hpf 0-5 [facility] Urinalysis, Completeon 08-27 BACTERIA 4+ /hpf Normal None Seen [facility] Comment on above: Order Comment: CLEAN CATCH Performed By: #### M 100.2200, L400.0001 ####[facility] [address] [place], [address] EPI,SQUAMOUS 0-5 SEEN Normal 0-5 [facility] Comment on above: Order Comment: CLEAN CATCH Performed By: #### M 100.2200, L400.0001 ####[facility] [address] [place], [address] RBC 0 SEEN Normal 0-5 [facility] Comment on above: Order Comment: CLEAN CATCH Performed By: #### M 100.2200, L400.0001 ####[facility] [address] [place], [address] WBC 25-50 SEEN Normal 0-5 [facility] Comment on above: Order Comment: CLEAN CATCH Performed By: #### M 100.2200, L400.0001 ####[facility] [address] [place], [address] Mucus Ql (Urine sed) 0 SEEN Normal [facility] Comment on above: Order Comment: CLEAN CATCH Performed By: #### M 100.2200, L400.0001 ####[facility] [address] [place], [address] Urine blood detectionOrdered By: Celia Toribio on 08-27-2024 Urine Occult Blood Negative Negative [facility] Urine clarityOrdered By: Allyson Toribio on 08-27-2024 Clarity (U) Clear Clear [facility] Urine color determinationOrd ered By: Celia Toribio on 08-27-2024 Color (U) Yellow Yellow [facility] Urine cultureOrdered By: Allyson Toribio on 08-27-2024 Bacteria identified Cx Nom (U) ESBL Escherichia coli Abnormal [facility] Urine glucose detectionOrder ed By: Celia Toribio on 08-27-2024 Glucose Ql (U) Normal mg/dl Normal [facility] Urine leukocyte esterase det ection by dipstickOrdered By: Celia Toribio on 08-27-2024 Leukocyte esterase Test strip Ql (U) 500 /ul High Negative [facility] Urine pHOrdered By: Celia rapp on 08-27-2024 pH (U) 6.0 [pH] 5.0 - 8.0 [facility] Urine sediment bacteria coun t by microscopy (number/high power field)Ordered By: Celia Toribio on 08-27-2024 Bacteria LM.HPF (Urine sed) [#/Area] 4 /[HPF] None Seen [facility] Urine specific gravity measu rementOrdered By: Celia Toribio on 08-27-2024 Specific gravity (U) [Rel density] 1.015 1.002-1.030 [facility] Urine urobilinogen measureme ntOrdered By: Celia Toribio on 08-27-2024 Urobilinogen Ql (U) Normal mg/dl Normal [facility] Urobilinogen Ql (U)Ordered B y: Celia Toribio on 08-27-2024 Urine Urobilinogen Normal mg/dl Normal [facility] White blood cell countOrdere d By: Celia Toribio on 08-27-2024 Urine WBC 25-50 SEEN /hpf 0-5 [facility] White blood cell count 25-50 SEEN /hpf 0-5 [facility] Bilirubin, totalOrdered By: Lisha Talamantes on 08-26-2024 Bilirubin [Mass/Vol] 0.25 mg/dL 0.00-1.30 [facility] CBC W/Diff, Automatedon 03-1 0-2025 Absolute Lymph 0.94 X10 3/uL Normal 0.83-4.51 [facility] Comment on above: Performed By: #### L 500.4050, L501.5200, L100.0100, L501.2300 ####[facility] [address] [place], [address] Absolute Neut 2.9 X10 3/uL Normal 2.0-7.7 [facility] Comment on above: Performed By: #### L 500.4050, L501.5200, L100.0100, L501.2300 ####[facility] [address] [place], [address] Basophils/100 WBC (Bld) 1.1 % High 0-1 [facility] Comment on above: Performed By: #### L 500.4050, L501.5200, L100.0100, L501.2300 ####[facility] [address] [place], [address] Eosinophils/100 WBC (Bld) 3.4 % Normal 0-5 [facility] Comment on above: Performed By: #### L 500.4050, L501.5200, L100.0100, L501.2300 ####[facility] [address] [place], [address] Erythrocyte distribution width (RBC) [Ratio] 13.3 % Normal 11.6-14.6 [facility] Comment on above: Performed By: #### L 500.4050, L501.5200, L100.0100, L501.2300 ####[facility] [address] [place], [address] Hematocrit (Bld) [Volume fraction] 40.6 % Normal 40-54 [facility] Comment on above: Performed By: #### L 500.4050, L501.5200, L100.0100, L501.2300 ####[facility] [address] [place], [address] Hemoglobin (Bld) [Mass/Vol] 13.3 g/dL Normal 13.0-16.5 [facility] Comment on above: Performed By: #### L 500.4050, L501.5200, L100.0100, L501.2300 ####[facility] [address] [place], [address] IG% 0.200 Normal 0.0-0.9 [facility] Comment on above: Result Comment: IG% - Immature Granulocytes (promyelocytes, myelocytes andmetamyelocytes) > 1% indicates that a LEFT SHIFT is Present. Performed By: #### L 500.4050, L501.5200, L100.0100, L501.2300 ####[facility] [address] [place], [address] Lymphocytes/100 WBC (Bld) 19.8 % Normal 19-41 [facility] Comment on above: Performed By: #### L 500.4050, L501.5200, L100.0100, L501.2300 ####[facility] [address] [place], [address] MCH (RBC) [Entitic mass] 31.2 pg Normal 27.0-32.0 [facility] Comment on above: Performed By: #### L 500.4050, L501.5200, L100.0100, L501.2300 ####[facility] [address] [place], [address] MCHC (RBC) [Mass/Vol] 32.8 g/dL Normal 32-36 [facility] Comment on above: Performed By: #### L 500.4050, L501.5200, L100.0100, L501.2300 ####[facility] [address] [place], [address] MCV (RBC) [Entitic vol] 95.3 fL High 80-94 [facility] Comment on above: Performed By: #### L 500.4050, L501.5200, L100.0100, L501.2300 ####[facility] [address] [place], [address] Monocytes/100 WBC (Bld) 15.2 % High 0-10 [facility] Comment on above: Performed By: #### L 500.4050, L501.5200, L100.0100, L501.2300 ####[facility] [address] [place], [address] Neutrophils/100 WBC (Bld) 60.3 % Normal 47-70 [facility] Comment on above: Performed By: #### L 500.4050, L501.5200, L100.0100, L501.2300 ####[facility] [address] [place], [address] Nucleated RBC (Bld) [#/Vol] 0 10*3/uL Normal 0-5 [facility] Comment on above: Performed By: #### L 500.4050, L501.5200, L100.0100, L501.2300 ####[facility] [address] [place], [address] Platelet mean volume (Bld) [Entitic vol] 9.9 fL Normal 6.2-12.0 [facility] Comment on above: Performed By: #### L 500.4050, L501.5200, L100.0100, L501.2300 ####[facility] [address] [place], [address] Platelets (Bld) [#/Vol] 242 10*3/uL Normal 150-450 [facility] Comment on above: Performed By: #### L 500.4050, L501.5200, L100.0100, L501.2300 ####[facility] [address] [place], [address] RBC (Bld) [#/Vol] 4.26 10*6/uL Low 4.6-6.2 [facility] Comment on above: Performed By: #### L 500.4050, L501.5200, L100.0100, L501.2300 ####[facility] [address] [place], [address] RDW SD 46.7 fl High 35.1-43.9 [facility] Comment on above: Performed By: #### L 500.4050, L501.5200, L100.0100, L501.2300 ####[facility] [address] [place], [address] WBC (Bld) [#/Vol] 4.7 10*3/uL Normal 4.4-11.0 [facility] Comment on above: Performed By: #### L 500.4050, L501.5200, L100.0100, L501.2300 ####[facility] [address] [place], [address] COVID 19 AG RAPID (SEYMOUR Dixon)on 08-26-2024 SARS-CoV-2 (COVID-19) RNA ALEENA+probe Ql (Unsp spec) Normal [facility] Comment on above: Performed By: #### M 100.505 ####[facility] [address] [place], [address] COVID-19 virus antigen assay Ordered By: Celia Toribio on 08-26-2024 SARS-CoV-2 (COVID-19) Ag IA.rapid Ql (Resp) [facility] Comprehensive Metabolic Prof ilon 08-26-2024 Albumin [Mass/Vol] 4.0 g/dL Normal 3.4-4.8 [facility] Comment on above: Performed By: #### L 500.4050, L501.5200, L100.0100, L501.2300 ####[facility] [address] [place], [address] Albumin/Globulin [Mass ratio] 1.4 {ratio} Normal 0.9-2.4 [facility] Comment on above: Performed By: #### L 500.4050, L501.5200, L100.0100, L501.2300 ####[facility] [address] [place], [address] ALK PHOS 67 U/L Normal 40-129 [facility] Comment on above: Performed By: #### L 500.4050, L501.5200, L100.0100, L501.2300 ####[facility] [address] [place], [address] ALT [Catalytic activity/Vol] 28 U/L Normal <=46 [facility] Comment on above: Performed By: #### L 500.4050, L501.5200, L100.0100, L501.2300 ####[facility] [address] [place], [address] AST [Catalytic activity/Vol] 23 U/L Normal <=37 [facility] Comment on above: Performed By: #### L 500.4050, L501.5200, L100.0100, L501.2300 ####[facility] [address] [place], [address] Bilirubin [Mass/Vol] 0.25 mg/dL Normal 0.00-1.30 [facility] Comment on above: Performed By: #### L 500.4050, L501.5200, L100.0100, L501.2300 ####[facility] [address] [place], [address] BUN/CRE 21.8 RATIO High 10-20 [facility] Comment on above: Performed By: #### L 500.4050, L501.5200, L100.0100, L501.2300 ####[facility] [address] [place], [address] Calcium [Mass/Vol] 9.4 mg/dL Normal 7.6-11.0 [facility] Comment on above: Performed By: #### L 500.4050, L501.5200, L100.0100, L501.2300 ####[facility] [address] [place], [address] Chloride [Moles/Vol] 105 mmol/L Normal 98-108 [facility] Comment on above: Performed By: #### L 500.4050, L501.5200, L100.0100, L501.2300 ####[facility] [address] [place], [address] CO2 [Moles/Vol] 17.6 mmol/L Low 21.0-32.0 [facility] Comment on above: Performed By: #### L 500.4050, L501.5200, L100.0100, L501.2300 ####[facility] [address] [place], [address] Creatinine [Mass/Vol] 1.04 mg/dL Normal 0.70-1.20 [facility] Comment on above: Performed By: #### L 500.4050, L501.5200, L100.0100, L501.2300 ####[facility] [address] [place], [address] ECRCL 58.77 ml/min Normal 50-250 [facility] Comment on above: Performed By: #### L 500.4050, L501.5200, L100.0100, L501.2300 ####[facility] [address] [place], [address] GAP 16 High 5-15 [facility] Comment on above: Performed By: #### L 500.4050, L501.5200, L100.0100, L501.2300 ####[facility] [address] [place], [address] GFR/1.73 sq M.predicted among non-blacks MDRD (S/P/Bld) [Vol rate/Area] 75 mL/min/{1.73_m2} Normal >60 [facility] Comment on above: Result Comment: mL/m in/1.73m2 CKD-EPI Creatinine Equation (2020) Performed By: #### L 500.4050, L501.5200, L100.0100, L501.2300 ####[facility] [address] [place], [address] Globulin (S) [Mass/Vol] 2.9 g/dL Normal 2.2-4.2 [facility] Comment on above: Performed By: #### L 500.4050, L501.5200, L100.0100, L501.2300 ####[facility] [address] [place], [address] Glucose [Mass/Vol] 88 mg/dL Normal 70-99 [facility] Comment on above: Performed By: #### L 500.4050, L501.5200, L100.0100, L501.2300 ####[facility] [address] [place], [address] Potassium [Moles/Vol] 3.6 mmol/L Normal 3.3-5.1 [facility] Comment on above: Performed By: #### L 500.4050, L501.5200, L100.0100, L501.2300 ####[facility] [address] [place], [address] Sodium [Moles/Vol] 139 mmol/L Normal 133-145 [facility] Comment on above: Performed By: #### L 500.4050, L501.5200, L100.0100, L501.2300 ####[facility] [address] [place], [address] T PROT 6.9 g/dL Normal 5.9-8.4 [facility] Comment on above: Performed By: #### L 500.4050, L501.5200, L100.0100, L501.2300 ####[facility] [address] [place], [address] Urea nitrogen [Mass/Vol] 23 mg/dL High 4-19 [facility] Comment on above: Performed By: #### L 500.4050, L501.5200, L100.0100, L501.2300 ####[facility] [address] [place], [address] Laboratory - Chemistry and C hemistry - challengeOrdered By: Lisha Talamantes on 08-26-2024 AST [Catalytic activity/Vol] 23 U/L <38 [facility] Lactic Acidon 08-26-2024 Lactate [Moles/Vol] 1.1 mmol/L Normal 0.0-2.0 [facility] Comment on above: Order Comment: Y Performed By: #### L 503.6005 ####[facility] [address] [place], [address] Lactic acid measurementOrder ed By: Celia Toribio on 08-26-2024 Lactate [Moles/Vol] 1.1 mmol/L 0.0-2.0 [facility] Magnesiumon 08-26-2024 Magnesium [Mass/Vol] 1.9 mg/dL Normal 1.5-2.2 [facility] Comment on above: Performed By: #### L 500.4050, L501.5200, L100.0100, L501.2300 ####[facility] [address] [place], [place], [address] Magnesium (Unsp spec) [Mass/ Vol]Ordered By: Lisha Talamantes on 08-26-2024 Magnesium [Mass/Vol] 1.9 mg/dL 1.5-2.2 [facility] Magnesium measurement (mass/ volume)Ordered By: Lisha Talamantes on 08-26-2024 Magnesium (Unsp spec) [Mass/Vol] 1.9 mg/dL 1.5-2.2 [facility] No Panel InformationOrdered By: Lisha Talamantes on 08-26-2024 23 U/L <38 [facility] Phosphoruson 08-26-2024 Phosphate [Mass/Vol] 3.1 mg/dL Normal 2.7-4.5 [facility] Comment on above: Performed By: #### L 500.4050, L501.5200, L100.0100, L501.2300 ####[facility] [address] [place], [place], [id number] RESPIRATORY PANEL MOLECULARo n 08-26-2024 RP PANEL Normal [facility] Comment on above: Performed By: #### M 100.638 ####[facility] [address] [place], [place], [id number] Respiratory pathogens DNA an d RNA panel ALEENA+probe (Resp)Ordered By: Celia Toribio on 08-26-2024 Respiratory Panel (PCR) [facility] Respiratory pathogens detect ion panel by molecular detection methodOrdered By: Celia Toribio on 08-26-2024 Respiratory pathogens DNA and RNA panel ALEENA+probe (Resp) [facility] SARS-CoV-2 (COVID-19) Ag IA. rapid Ql (Resp)Ordered By: Celia Toribio on 08-26-2024 SARS-CoV-2 Antigen (Rapid) [facility] Serum globulin measurementOr dered By: Lisha Talamantes on 08-26-2024 Globulin (S) [Mass/Vol] 2.9 g/dL 2.2-4.2 [facility] Serum or plasma alanine saul otransferase (ALT) measurementOrdered By: Lisha Talamantes on 08-26-2024 ALT [Catalytic activity/Vol] 28 U/L <47 [facility] Serum or plasma albumin luis urement (mass/volume)Ordered By: Lisha Talamantes on 08-26-2024 Albumin [Mass/Vol] 4.0 g/dL 3.4-4.8 [facility] Serum or plasma albumin/glob ulin mass ratioOrdered By: Lisha Talamantes on 08-26-2024 Albumin/Globulin [Mass ratio] 1.4 {ratio} 0.9-2.4 [facility] Serum or plasma alkaline kathleen sphatase measurementOrdered By: Lisha Talamantes on 08-26-2024 ALP [Catalytic activity/Vol] 67 U/L 40-129 [facility] Serum phosphorus measurement Ordered By: Lisha Talamantes on 08-26-2024 Phosphorus Level 3.1 mg/dL 2.7-4.5 [facility] Total proteinOrdered By: Ying Talamantes on 08-26-2024 Protein [Mass/Vol] 6.9 g/dL 5.9-8.4 [facility] Absolute neutrophil countOrd ered By: Jaden Jauregui on 08-25-2024 Neutrophils (Bld) [#/Vol] 4.6 10*3/uL 2.0-7.7 [facility] Anion gap in Serum or Plasma Ordered By: Jaden Jauregui on 08-25-2024 Anion gap [Moles/Vol] 13 mmol/L 5-15 [facility] BUN/creatinine ratioOrdered By: Jaden Jauregui on 08-25-2024 Urea nitrogen/Creatinine [Mass ratio] 21.4 mg/mg High 10-20 [facility] Basophil percentageOrdered B y: Jaden Jauregui on 08-25-2024 Basophils/100 WBC (Bld) 0.8 % 0-1 [facility] Bilirubin, totalOrdered By: Jaden Jauregui on 08-25-2024 Bilirubin [Mass/Vol] 0.22 mg/dL 0.00-1.30 [facility] CBC W/Diff, Automatedon Absolute Lymph 0.61 X10 3/uL Low 0.83-4.51 [facility] Comment on above: Performed By: #### L 500.4050, L100.0100 ####[facility] [address] [place], [address] Absolute Neut 4.6 X10 3/uL Normal 2.0-7.7 [facility] Comment on above: Performed By: #### L 500.4050, L100.0100 ####[facility] [address] [place], [address] Basophils/100 WBC (Bld) 0.8 % Normal 0-1 [facility] Comment on above: Performed By: #### L 500.4050, L100.0100 ####[facility] [address] [place], [address] Eosinophils/100 WBC (Bld) 0.3 % Normal 0-5 [facility] Comment on above: Performed By: #### L 500.4050, L100.0100 ####[facility] [address] [place], [address] Erythrocyte distribution width (RBC) [Ratio] 13.2 % Normal 11.6-14.6 [facility] Comment on above: Performed By: #### L 500.4050, L100.0100 ####[facility] [address] [place], [address] Hematocrit (Bld) [Volume fraction] 43.3 % Normal 40-54 [facility] Comment on above: Performed By: #### L 500.4050, L100.0100 ####[facility] [address] [place], [address] Hemoglobin (Bld) [Mass/Vol] 14.2 g/dL Normal 13.0-16.5 [facility] Comment on above: Performed By: #### L 500.4050, L100.0100 ####[facility] [address] [place], [address] IG% 0.300 Normal 0.0-0.9 [facility] Comment on above: Result Comment: IG% - Immature Granulocytes (promyelocytes, myelocytes andmetamyelocytes) > 1% indicates that a LEFT SHIFT is Present. Performed By: #### L 500.4050, L100.0100 ####[facility] [address] [place], [address] Lymphocytes/100 WBC (Bld) 10.3 % Low 19-41 [facility] Comment on above: Performed By: #### L 500.4050, L100.0100 ####[facility] [address] [place], [address] MCH (RBC) [Entitic mass] 31.4 pg Normal 27.0-32.0 [facility] Comment on above: Performed By: #### L 500.4050, L100.0100 ####[facility] [address] [place], [address] MCHC (RBC) [Mass/Vol] 32.8 g/dL Normal 32-36 [facility] Comment on above: Performed By: #### L 500.4050, L100.0100 ####[facility] [address] [place], [address] MCV (RBC) [Entitic vol] 95.8 fL High 80-94 [facility] Comment on above: Performed By: #### L 500.4050, L100.0100 ####[facility] [address] [place], [address] Monocytes/100 WBC (Bld) 9.9 % Normal 0-10 [facility] Comment on above: Performed By: #### L 500.4050, L100.0100 ####[facility] [address] [place], [address] Neutrophils/100 WBC (Bld) 78.4 % High 47-70 [facility] Comment on above: Performed By: #### L 500.4050, L100.0100 ####[facility] [address] [place], [address] Nucleated RBC (Bld) [#/Vol] 0 10*3/uL Normal 0-5 [facility] Comment on above: Performed By: #### L 500.4050, L100.0100 ####[facility] [address] [place], [address] Platelet mean volume (Bld) [Entitic vol] 9.5 fL Normal 6.2-12.0 [facility] Comment on above: Performed By: #### L 500.4050, L100.0100 ####[facility] [address] [place], [address] Platelets (Bld) [#/Vol] 245 10*3/uL Normal 150-450 [facility] Comment on above: Performed By: #### L 500.4050, L100.0100 ####[facility] [address] [place], [address] RBC (Bld) [#/Vol] 4.52 10*6/uL Low 4.6-6.2 [facility] Comment on above: Performed By: #### L 500.4050, L100.0100 ####[facility] [address] [place], [address] RDW SD 46.6 fl High 35.1-43.9 [facility] Comment on above: Performed By: #### L 500.4050, L100.0100 ####[facility] [address] [place], [address] WBC (Bld) [#/Vol] 5.9 10*3/uL Normal 4.4-11.0 [facility] Comment on above: Performed By: #### L 500.4050, L100.0100 ####[facility] [address] [place], [address] Carbon dioxide, total [Moles /volume] in Central venous bloodOrdered By: Jaden Jauregui on 08-25-2024 CO2 [Moles/Vol] 24.5 mmol/L 21.0-32.0 [facility] Chest 1 View (Portable)on Chest 1 View (Portable) Normal [facility] Chloride assayOrdered By: Joseph Jauregui on 08-25-2024 Chloride [Moles/Vol] 102 mmol/L 98-108 [facility] Comprehensive Metabolic Prof ilon 08-25-2024 Albumin [Mass/Vol] 4.5 g/dL Normal 3.4-4.8 [facility] Comment on above: Performed By: #### L 500.4050, L100.0100 ####[facility] [address] [place], [address] Albumin/Globulin [Mass ratio] 1.4 {ratio} Normal 0.9-2.4 [facility] Comment on above: Performed By: #### L 500.4050, L100.0100 ####[facility] [address] [place], [address] ALK PHOS 77 U/L Normal 40-129 [facility] Comment on above: Performed By: #### L 500.4050, L100.0100 ####[facility] [address] [place], [address] ALT [Catalytic activity/Vol] 32 U/L Normal <=46 [facility] Comment on above: Performed By: #### L 500.4050, L100.0100 ####[facility] [address] [place], [address] AST [Catalytic activity/Vol] 26 U/L Normal <=37 [facility] Comment on above: Performed By: #### L 500.4050, L100.0100 ####[facility] [address] [place], [address] Bilirubin [Mass/Vol] 0.22 mg/dL Normal 0.00-1.30 [facility] Comment on above: Performed By: #### L 500.4050, L100.0100 ####[facility] [address] [place], [address] BUN/CRE 21.4 RATIO High 10-20 [facility] Comment on above: Performed By: #### L 500.4050, L100.0100 ####[facility] [address] [place], [address] Calcium [Mass/Vol] 10.0 mg/dL Normal 7.6-11.0 [facility] Comment on above: Performed By: #### L 500.4050, L100.0100 ####[facility] [address] [place], [address] Chloride [Moles/Vol] 102 mmol/L Normal 98-108 [facility] Comment on above: Performed By: #### L 500.4050, L100.0100 ####[facility] [address] [place], [address] CO2 [Moles/Vol] 24.5 mmol/L Normal 21.0-32.0 [facility] Comment on above: Performed By: #### L 500.4050, L100.0100 ####[facility] [address] [place], [address] Creatinine [Mass/Vol] 1.17 mg/dL Normal 0.70-1.20 [facility] Comment on above: Performed By: #### L 500.4050, L100.0100 ####[facility] [address] [place], [address] GAP 13 Normal 5-15 [facility] Comment on above: Performed By: #### L 500.4050, L100.0100 ####[facility] [address] [place], [address] GFR/1.73 sq M.predicted among non-blacks MDRD (S/P/Bld) [Vol rate/Area] 65 mL/min/{1.73_m2} Normal >60 [facility] Comment on above: Result Comment: mL/m in/1.73m2 CKD-EPI Creatinine Equation (2020) Performed By: #### L 500.4050, L100.0100 ####[facility] [address] [place], [address] Globulin (S) [Mass/Vol] 3.2 g/dL Normal 2.2-4.2 [facility] Comment on above: Performed By: #### L 500.4050, L100.0100 ####[facility] [address] [place], [address] Glucose [Mass/Vol] 98 mg/dL Normal 70-99 [facility] Comment on above: Performed By: #### L 500.4050, L100.0100 ####[facility] [address] [place], [address] Potassium [Moles/Vol] 3.8 mmol/L Normal 3.3-5.1 [facility] Comment on above: Performed By: #### L 500.4050, L100.0100 ####[facility] [address] [place], [address] Sodium [Moles/Vol] 139 mmol/L Normal 133-145 [facility] Comment on above: Performed By: #### L 500.4050, L100.0100 ####[facility] [address] [place], [address] T PROT 7.7 g/dL Normal 5.9-8.4 [facility] Comment on above: Performed By: #### L 500.4050, L100.0100 ####[facility] [address] [place], [address] Urea nitrogen [Mass/Vol] 25 mg/dL High 4-19 [facility] Comment on above: Performed By: #### L 500.4050, L100.0100 ####[facility] [address] [place], [place], [id number] Emergency Department Summary on 08-25-2024 Emergency Department Summary Normal [facility] Eosinophil percentageOrdered By: Jaden Jauregui on 08-25-2024 Eosinophils/100 WBC (Bld) 0.3 % 0-5 [facility] Erythrocyte distribution wid th ratioOrdered By: Jaden Jauregui on 08-25-2024 Erythrocyte distribution width (RBC) [Ratio] 13.2 % 11.6-14.6 [facility] Erythrocyte distribution wid th standard deviationOrdered By: Jaden Jauregui on 08-25-2024 Erythrocyte distribution width (RBC) [Entitic vol] 46.6 fL High 35.1-43.9 [facility] GFR/1.73 sq M.predicted gisella g non-blacks MDRD (S/P/Bld) [Vol rate/Area]Ordered By: Jaden Jauregui on 08-25-2024 Estimated GFR (MDRD) Non-Af Amer 65 >60 [facility] Comment on above: mL/min/1.73m2 CKD-EP I Creatinine Equation (2020) H AND P Exam - [facility] 08-25-2024 H&P Exam - Hospitalist Normal [facility] Hematocrit Auto (Bld) [Volum e fraction]Ordered By: Jaden Jauregui on 08-25-2024 Hematocrit (Bld) [Volume fraction] 43.3 % 40-54 [facility] Hemoglobin measurementOrdere d By: Jaden Jauregui on 08-25-2024 Hemoglobin (Bld) [Mass/Vol] 14.2 g/dL 13.0-16.5 [facility] Immature granulocytes/100 WB C Auto (Bld)Ordered By: Jaden Jauregui on 08-25-2024 Immature granulocytes/100 WBC (Bld) 0.300 % 0.0-0.9 [facility] Comment on above: IG% - Immature Granu locytes (promyelocytes, myelocytes and metamyelocytes) > 1% indicates that a LEFT SHIFT is Present. Laboratory - Chemistry and C hemistry - challengeOrdered By: Jaden Jauregui on 08-25-2024 AST [Catalytic activity/Vol] 26 U/L <38 [facility] Lymphocytes Auto (Unsp spec) [#/Vol]Ordered By: Jaden Jauregui on 08-25-2024 Lymphocytes (Bld) [#/Vol] 0.61 10*3/uL Low 0.83-4.51 [facility] Lymphocytes/100 WBC Auto (Un sp spec)Ordered By: Jaden Jauregui on 08-25-2024 Lymphocytes/100 WBC (Bld) 10.3 % Low 19-41 [facility] MCV (mean corpuscular volume ) determinationOrdered By: Jaden Jauregui on 08-25-2024 MCV (RBC) [Entitic vol] 95.8 fL High 80-94 [facility] Mean corpuscular hemoglobin (MCH) determinationOrdered By: Jaden Jauregui on 08-25-2024 MCH (RBC) [Entitic mass] 31.4 pg 27.0-32.0 [facility] Mean corpuscular hemoglobin concentration (MCHC) determinationOrdered By: Jaden Jauregui on 08-25-2024 MCHC (RBC) [Mass/Vol] 32.8 g/dL 32-36 [facility] Mean platelet volume determi nationOrdered By: Jaden Jauregui on 08-25-2024 Platelet mean volume (Bld) [Entitic vol] 9.5 fL 6.2-12.0 [facility] Monocyte percentageOrdered B y: Jaden Jauregui on 08-25-2024 Monocytes/100 WBC (Bld) 9.9 % 0-10 [facility] Neutrophil percentageOrdered By: Jaden Jauregui on 08-25-2024 Neutrophils/100 WBC (Bld) 78.4 % High 47-70 [facility] Nucleated red blood cell per centageOrdered By: Jaden Jauregui on 08-25-2024 Nucleated RBC/100 WBC (Bld) [Ratio] 0 % 0-5 [facility] Platelet countOrdered By: Joseph Jauregui on 08-25-2024 Platelets (Bld) [#/Vol] 245 10*3/uL 150-450 [facility] Potassium (Unsp spec) [Mass/ Vol]Ordered By: Jaden Jauregui on 08-25-2024 Potassium [Moles/Vol] 3.8 mmol/L 3.3-5.1 [facility] RBC Auto (Bld) [#/Vol]Ordere d By: Jaden Jauregui on 08-25-2024 RBC (Bld) [#/Vol] 4.52 10*6/uL Low 4.6-6.2 [facility] Serum creatinine measurement (mass/volume)Ordered By: Jaden Jauregui on 08-25-2024 Creatinine [Mass/Vol] 1.17 mg/dL 0.70-1.20 [facility] Serum globulin measurementOr dered By: Jaden Jauregui on 08-25-2024 Globulin (S) [Mass/Vol] 3.2 g/dL 2.2-4.2 [facility] Serum glucose measurement (m ass/volume)Ordered By: Jaden Jauregui on 08-25-2024 Glucose [Mass/Vol] 98 mg/dL 70-99 [facility] Serum or plasma alanine saul otransferase (ALT) measurementOrdered By: Jaden Jauregui on 08-25-2024 ALT [Catalytic activity/Vol] 32 U/L <47 [facility] Serum or plasma albumin luis urement (mass/volume)Ordered By: Jaden Jauregui on 08-25-2024 Albumin [Mass/Vol] 4.5 g/dL 3.4-4.8 [facility] Serum or plasma albumin/glob ulin mass ratioOrdered By: Jaden Jauregui on 08-25-2024 Albumin/Globulin [Mass ratio] 1.4 {ratio} 0.9-2.4 [facility] Serum or plasma alkaline kathleen sphatase measurementOrdered By: Jaden Jauregui on 08-25-2024 ALP [Catalytic activity/Vol] 77 U/L 40-129 [facility] Serum or plasma calcium luis urement (mass/volume)Ordered By: Jaden Jauregui on 08-25-2024 Calcium [Mass/Vol] 10.0 mg/dL 7.6-11.0 [facility] Serum or plasma urea nitroge n measurement (mass/volume)Ordered By: Jaden Jauregui on 08-25-2024 Urea nitrogen [Mass/Vol] 25 mg/dL High 4-19 [facility] Sodium levelOrdered By: Maurice Jauregui on 08-25-2024 Sodium [Moles/Vol] 139 mmol/L 133-145 [facility] Total proteinOrdered By: Rad Jauregui on 08-25-2024 Protein [Mass/Vol] 7.7 g/dL 5.9-8.4 [facility] White blood cell (WBC) count Ordered By: Jaden Jauregui on 08-25-2024 WBC (Bld) [#/Vol] 5.9 10*3/uL 4.4-11.0 [facility] 39-QT-Rhcuwfg DOrdered By: Landry Crane on 07-15-2024 Vitamin D 25-Hydroxy 36.0 ng/mL [facility] Comment on above: Vitamin D 25(OH) Sta tus Range Deficiency <20 ng/mL (50nmol/L) Insufficiency 20 - 30 ng/mL (50 - 75 nmol/L) Sufficiency 30 - 100 ng/mL (75 - 250 nmol/L) Toxicity >100 ng/mL (>250 nmol/L) Absolute neutrophil countOrd ered By: Carla Crane on 07-15-2024 Neutrophils (Bld) [#/Vol] 2.7 10*3/uL 2.0-7.7 [facility] Albumin to globulin ratioOrd ered By: Carla Crane on 07-15-2024 Albumin/Globulin [Mass ratio] 1.0 {ratio} Normal 0.9-2.4 [facility] Comment on above: Order Comment: [id number] Performed By: #### L 500.4050, L506.1000, L501.9985, L501.7900, L503.0105, L501.5200, L100.0100 ####[facility] [address] [place], [address] Basophil percentageOrdered B y: Carla Crane on 07-15-2024 Basophils/100 WBC (Bld) 1.4 % High 0-1 [facility] Bilirubin, totalOrdered By: Carla Crane on 07-15-2024 Bilirubin [Mass/Vol] 0.30 mg/dL Normal 0.20-1.00 [facility] Comment on above: For patients on eltr ombopag therapy, use of Dimension [place] TBIL is not recommended. Order Comment: 414-2 Result Comment: For patients on eltrombopag therapy, use of Dimension [place] TBIL is not recommended. Performed By: #### L 500.4050, L506.1000, L501.9985, L501.7900, L503.0105, L501.5200, L100.0100 ####[facility] [address] [place], [phone] Blood urea nitrogen (BUN)/cr eatinine ratioOrdered By: Carla Crane on 07-15-2024 Urea nitrogen/Creatinine [Mass ratio] 25.4 mg/mg High 10-20 [facility] CBC W/Diff, Automatedon 06-20 Absolute Lymph 1.38 X10 3/uL Normal 0.83-4.51 [facility] Comment on above: Order Comment: 414-2 Performed By: #### L 500.4050, L506.1000, L501.9985, L501.7900, L503.0105, L501.5200, L100.0100 ####[facility] [address] [place], [address](299) Absolute Neut 2.7 X10 3/uL Normal 2.0-7.7 [facility] Comment on above: Order Comment: 414-2 Performed By: #### L 500.4050, L506.1000, L501.9985, L501.7900, L503.0105, L501.5200, L100.0100 ####[facility] [address] [place], [place], [phone](978) Basophils/100 WBC (Bld) 1.4 % High 0-1 [facility] Comment on above: Order Comment: 414-2 Performed By: #### L 500.4050, L506.1000, L501.9985, L501.7900, L503.0105, L501.5200, L100.0100 ####[facility] [address] [place], [address] Eosinophils/100 WBC (Bld) 9.4 % High 0-5 [facility] Comment on above: Order Comment: 414-2 Performed By: #### L 500.4050, L506.1000, L501.9985, L501.7900, L503.0105, L501.5200, L100.0100 ####[facility] [address] [place], [address] Erythrocyte distribution width (RBC) [Ratio] 12.8 % Normal 11.6-14.6 [facility] Comment on above: Order Comment: 414-2 Performed By: #### L 500.4050, L506.1000, L501.9985, L501.7900, L503.0105, L501.5200, L100.0100 ####[facility] [address] [place], [address] Hematocrit (Bld) [Volume fraction] 45.8 % Normal 40-54 [facility] Comment on above: Order Comment: 414-2 Performed By: #### L 500.4050, L506.1000, L501.9985, L501.7900, L503.0105, L501.5200, L100.0100 ####[facility] [address] [place], [address] Hemoglobin (Bld) [Mass/Vol] 14.8 g/dL Normal 13.0-16.5 [facility] Comment on above: Order Comment: 414-2 Performed By: #### L 500.4050, L506.1000, L501.9985, L501.7900, L503.0105, L501.5200, L100.0100 ####[facility] [address] [place], [address] IG% 0.400 Normal 0.0-0.9 [facility] Comment on above: Order Comment: 414-2 Result Comment: IG% - Immature Granulocytes (promyelocytes, myelocytes andmetamyelocytes) > 1% indicates that a LEFT SHIFT is Present. Performed By: #### L 500.4050, L506.1000, L501.9985, L501.7900, L503.0105, L501.5200, L100.0100 ####[facility] [address] [place], [address] Lymphocytes/100 WBC (Bld) 26.9 % Normal 19-41 [facility] Comment on above: Order Comment: 414-2 Performed By: #### L 500.4050, L506.1000, L501.9985, L501.7900, L503.0105, L501.5200, L100.0100 ####[facility] [address] [place], [address] MCH (RBC) [Entitic mass] 31.2 pg Normal 27.0-32.0 [facility] Comment on above: Order Comment: 414-2 Performed By: #### L 500.4050, L506.1000, L501.9985, L501.7900, L503.0105, L501.5200, L100.0100 ####[facility] [address] [place], [address] MCHC (RBC) [Mass/Vol] 32.3 g/dL Normal 32-36 [facility] Comment on above: Order Comment: 414-2 Performed By: #### L 500.4050, L506.1000, L501.9985, L501.7900, L503.0105, L501.5200, L100.0100 ####[facility] [address] [place], [address] MCV (RBC) [Entitic vol] 96.4 fL High 80-94 [facility] Comment on above: Order Comment: 414-2 Performed By: #### L 500.4050, L506.1000, L501.9985, L501.7900, L503.0105, L501.5200, L100.0100 ####[facility] [address] [place], [address] Monocytes/100 WBC (Bld) 8.8 % Normal 0-10 [facility] Comment on above: Order Comment: 414-2 Performed By: #### L 500.4050, L506.1000, L501.9985, L501.7900, L503.0105, L501.5200, L100.0100 ####[facility] [address] [place], [address] Neutrophils/100 WBC (Bld) 53.1 % Normal 47-70 [facility] Comment on above: Order Comment: 414-2 Performed By: #### L 500.4050, L506.1000, L501.9985, L501.7900, L503.0105, L501.5200, L100.0100 ####[facility] [address] [place], [address] Nucleated RBC (Bld) [#/Vol] 0 10*3/uL Normal 0-5 [facility] Comment on above: Order Comment: 414-2 Performed By: #### L 500.4050, L506.1000, L501.9985, L501.7900, L503.0105, L501.5200, L100.0100 ####[facility] [address] [place], [address] Platelet mean volume (Bld) [Entitic vol] 9.6 fL Normal 6.2-12.0 [facility] Comment on above: Order Comment: 414-2 Performed By: #### L 500.4050, L506.1000, L501.9985, L501.7900, L503.0105, L501.5200, L100.0100 ####[facility] [address] [place], [address] Platelets (Bld) [#/Vol] 295 10*3/uL Normal 150-450 [facility] Comment on above: Order Comment: 414-2 Performed By: #### L 500.4050, L506.1000, L501.9985, L501.7900, L503.0105, L501.5200, L100.0100 ####[facility] [address] [place], [address] RBC (Bld) [#/Vol] 4.75 10*6/uL Normal 4.6-6.2 [facility] Comment on above: Order Comment: 414-2 Performed By: #### L 500.4050, L506.1000, L501.9985, L501.7900, L503.0105, L501.5200, L100.0100 ####[facility] [address] [place], [address] RDW SD 45.4 fl High 35.1-43.9 [facility] Comment on above: Order Comment: 414-2 Performed By: #### L 500.4050, L506.1000, L501.9985, L501.7900, L503.0105, L501.5200, L100.0100 ####[facility] [address] [place], [address] WBC (Bld) [#/Vol] 5.1 10*3/uL Normal 4.4-11.0 [facility] Comment on above: Order Comment: 414-2 Performed By: #### L 500.4050, L506.1000, L501.9985, L501.7900, L503.0105, L501.5200, L100.0100 ####[facility] [address] [place], [address] Carbamazepine (Tegretol)on 0 07-15-2024 CARBAMAZEPINE 7.0 ug/mL Normal 4.0-12.0 [facility] Comment on above: Order Comment: 414-2 Performed By: #### L 500.4050, L506.1000, L501.9985, L501.7900, L503.0105, L501.5200, L100.0100 ####[facility] [address] [place], [place], [phone] Carbon dioxide measurementOr dered By: Carla Crane on 07-15-2024 CO2 [Moles/Vol] 24.0 mmol/L Normal 21.0-32.0 [facility] Comment on above: Order Comment: 414-2 Performed By: #### L 500.4050, L506.1000, L501.9985, L501.7900, L503.0105, L501.5200, L100.0100 ####[facility] [address] [place], [place], [phone] Chloride measurementOrdered By: Carla Crane on 07-15-2024 Chloride [Moles/Vol] 107 mmol/L Normal 98-107 [facility] Comment on above: Order Comment: 414-2 Performed By: #### L 500.4050, L506.1000, L501.9985, L501.7900, L503.0105, L501.5200, L100.0100 ####[facility] [address] [place], [place], [id number] Comprehensive Metabolic Prof ilon 07-15-2024 ALK P 70 U/L Normal 45-117 [facility] Comment on above: Order Comment: 414-2 Performed By: #### L 500.4050, L506.1000, L501.9985, L501.7900, L503.0105, L501.5200, L100.0100 ####[facility] [address] [place], [address] BUN/CRE 25.4 RATIO High 10-20 [facility] Comment on above: Order Comment: 414-2 Performed By: #### L 500.4050, L506.1000, L501.9985, L501.7900, L503.0105, L501.5200, L100.0100 ####[facility] [address] [place], [address] CA,Total 10.1 mg/dL Normal 8.5-10.1 [facility] Comment on above: Order Comment: 414-2 Performed By: #### L 500.4050, L506.1000, L501.9985, L501.7900, L503.0105, L501.5200, L100.0100 ####[facility] [address] [place], [address] EST GFR - AA 77 mL/min Normal >60 [facility] Comment on above: Order Comment: 414-2 Result Comment: Afri can Nigerian GFR Calc Performed By: #### L 500.4050, L506.1000, L501.9985, L501.7900, L503.0105, L501.5200, L100.0100 ####[facility] [address] [place], [address] GAP 7 Normal 5-15 [facility] Comment on above: Order Comment: 414-2 Performed By: #### L 500.4050, L506.1000, L501.9985, L501.7900, L503.0105, L501.5200, L100.0100 ####[facility] [address] [place], [address] GFR/1.73 sq M.predicted among non-blacks MDRD (S/P/Bld) [Vol rate/Area] 64 mL/min/{1.73_m2} Normal >60 [facility] Comment on above: Order Comment: 414-2 Result Comment: Non- GFR Calc Performed By: #### L 500.4050, L506.1000, L501.9985, L501.7900, L503.0105, L501.5200, L100.0100 ####[facility] [address] [place], [place], [id number] T PROT 8.0 g/dL Normal 6.4-8.2 [facility] Comment on above: Order Comment: 414-2 Performed By: #### L 500.4050, L506.1000, L501.9985, L501.7900, L503.0105, L501.5200, L100.0100 ####[facility] [address] [place], [place], [phone] Comprehensive Metabolic Prof ilOrdered By: Carla Crane on 07-15-2024 AST [Catalytic activity/Vol] 23 U/L Normal 15-37 [facility] Comment on above: Order Comment: 414-2 Performed By: #### L 500.4050, L506.1000, L501.9985, L501.7900, L503.0105, L501.5200, L100.0100 ####[facility] [address] [place], [place], [phone] Eosinophil percentageOrdered By: Carla Crane on 07-15-2024 Eosinophils/100 WBC (Bld) 9.4 % High 0-5 [facility] Erythrocyte distribution wid th ratioOrdered By: Carla Crane on 07-15-2024 Erythrocyte distribution width (RBC) [Ratio] 12.8 % 11.6-14.6 [facility] Erythrocyte distribution wid th standard deviationOrdered By: Carla Crane on 07-15-2024 Erythrocyte distribution width (RBC) [Entitic vol] 45.4 fL High 35.1-43.9 [facility] Estimated glomerular filtrat ion rate (GFR) AmericanOrdered By: Carla Crane on 07-15-2024 Estimated GFR (MDRD) Amer 77 mL/min >60 [facility] Comment on above: GFR Calc Glomerular filtration rate ( GFR) estimationOrdered By: Carla Crane on 07-15-2024 Estimated GFR (MDRD) Non-Af Amer 64 mL/min >60 [facility] Comment on above: Non- GFR Calc Glucose measurementOrdered B y: Carla Crane on 07-15-2024 Glucose [Mass/Vol] 103 mg/dL Normal 74-106 [facility] Comment on above: Fasting Glucose resu lt from 100 to 125 mg/dL suggests IMPAIRED HOMEOSTASIS per A.D.A. criteria. Order Comment: 414-2 Result Comment: Fast ing Glucose result from 100 to 125 mg/dLsuggests IMPAIRED HOMEOSTASIS per A.D.A. criteria. Performed By: #### L 500.4050, L506.1000, L501.9985, L501.7900, L503.0105, L501.5200, L100.0100 ####[facility] [address] [place], [address] Hematocrit Auto (Bld) [Volum e fraction]Ordered By: Carla Crane on 07-15-2024 Hematocrit (Bld) [Volume fraction] 45.8 % 40-54 [facility] Hemoglobin A1con 07-15-2024 HbA1c (Bld) [Mass fraction] 5.6 % Normal 3.8-5.6 [facility] Comment on above: Order Comment: 414-2 Result Comment: Norm al < 5.7 % Prediabetic 5.7 - 6.4 % Diabetic >or= 6.5 % Please note range changes. Performed By: #### L 500.4050, L506.1000, L501.9985, L501.7900, L503.0105, L501.5200, L100.0100 ####[facility] [address] [place], [address] Hemoglobin A1c percentageOrd ered By: Carla Crane on 07-15-2024 HbA1c (Bld) [Mass fraction] 5.6 % 3.8-5.6 [facility] Comment on above: Normal < 5.7 % Predi abetic 5.7 - 6.4 % Diabetic >or= 6.5 % Please note range changes. Hemoglobin measurementOrdere d By: Carla Crane on 07-15-2024 Hemoglobin (Bld) [Mass/Vol] 14.8 g/dL 13.0-16.5 [facility] Immature granulocytes/100 WB C Auto (Bld)Ordered By: Carla Crane on 07-15-2024 Immature granulocytes/100 WBC (Bld) 0.400 % 0.0-0.9 [facility] Comment on above: IG% - Immature Granu locytes (promyelocytes, myelocytes and metamyelocytes) > 1% indicates that a LEFT SHIFT is Present. Lymphocytes Auto (Unsp spec) [#/Vol]Ordered By: Carla Crane on 07-15-2024 Lymphocytes (Bld) [#/Vol] 1.38 10*3/uL 0.83-4.51 [facility] Lymphocytes/100 WBC Auto (Un sp spec)Ordered By: Carla Crane on 07-15-2024 Lymphocytes/100 WBC (Bld) 26.9 % 19-41 [facility] MCV (mean corpuscular volume ) determinationOrdered By: Carla Crane on 07-15-2024 MCV (RBC) [Entitic vol] 96.4 fL High 80-94 [facility] Magnesium measurementOrdered By: Carla Crane on 07-15-2024 Magnesium [Mass/Vol] 2.1 mg/dL Normal 1.6-2.6 [facility] Comment on above: Order Comment: 414-2 Performed By: #### L 500.4050, L506.1000, L501.9985, L501.7900, L503.0105, L501.5200, L100.0100 ####[facility] [address] [place], [place], [id number] Mean corpuscular hemoglobin (MCH) determinationOrdered By: Carla Crane on 07-15-2024 MCH (RBC) [Entitic mass] 31.2 pg 27.0-32.0 [facility] Mean corpuscular hemoglobin concentration (MCHC) determinationOrdered By: Carla Crane on 07-15-2024 MCHC (RBC) [Mass/Vol] 32.3 g/dL 32-36 [facility] Mean platelet volume determi nationOrdered By: Carla Crane on 07-15-2024 Platelet mean volume (Bld) [Entitic vol] 9.6 fL 6.2-12.0 [facility] Monocyte percentageOrdered B y: Carla Crane on 07-15-2024 Monocytes/100 WBC (Bld) 8.8 % 0-10 [facility] Neutrophil percentageOrdered By: Carla Crane on 07-15-2024 Neutrophils/100 WBC (Bld) 53.1 % 47-70 [facility] Nucleated red blood cell per centageOrdered By: Carla Crane on 07-15-2024 Nucleated RBC/100 WBC (Bld) [Ratio] 0 % 0-5 [facility] Platelet countOrdered By: Wilfredo Crane on 07-15-2024 Platelets (Bld) [#/Vol] 295 10*3/uL 150-450 [facility] Potassium measurementOrdered By: Carla Crane on 07-15-2024 Potassium [Moles/Vol] 3.8 mmol/L Normal 3.5-5.1 [facility] Comment on above: Order Comment: 414-2 Performed By: #### L 500.4050, L506.1000, L501.9985, L501.7900, L503.0105, L501.5200, L100.0100 ####[facility] [address] [place], [place], [id number] RBC Auto (Bld) [#/Vol]Ordere d By: Carla Crane on 07-15-2024 RBC (Bld) [#/Vol] 4.75 10*6/uL 4.6-6.2 [facility] Serum anion gap measurementO rdered By: Carla Crane on 07-15-2024 Anion gap [Moles/Vol] 7 mmol/L 5-15 [facility] Serum globulin measurementOr dered By: Carla Crane on 07-15-2024 Globulin (S) [Mass/Vol] 4.1 g/dL Normal 2.2-4.2 [facility] Comment on above: Order Comment: 414-2 Performed By: #### L 500.4050, L506.1000, L501.9985, L501.7900, L503.0105, L501.5200, L100.0100 ####[facility] [address] [place], [place], [id number] Serum or plasma alanine saul otransferase (ALT) measurementOrdered By: Carla Crane on 07-15-2024 ALT [Catalytic activity/Vol] 37 U/L Normal 16-61 [facility] Comment on above: Order Comment: 414-2 Performed By: #### L 500.4050, L506.1000, L501.9985, L501.7900, L503.0105, L501.5200, L100.0100 ####[facility] [address] [place], [place], [phone] Serum or plasma albumin luis urement (mass/volume)Ordered By: Carla Crane on 07-15-2024 Albumin [Mass/Vol] 3.9 g/dL Normal 3.2-5.0 [facility] Comment on above: Order Comment: 414-2 Performed By: #### L 500.4050, L506.1000, L501.9985, L501.7900, L503.0105, L501.5200, L100.0100 ####[facility] [address] [place], [place], [phone] Serum or plasma alkaline kathleen sphatase measurementOrdered By: Carla Crane on 07-15-2024 ALP [Catalytic activity/Vol] 70 U/L 45-117 [facility] Serum or plasma calcium luis urement (mass/volume)Ordered By: Carla Crane on 07-15-2024 Calcium [Mass/Vol] 10.1 mg/dL 8.5-10.1 [facility] Serum or plasma creatinine m easurement (mass/volume)Ordered By: Carla Crane on 07-15-2024 Creatinine [Mass/Vol] 1.18 mg/dL Normal 0.70-1.30 [facility] Comment on above: The validity of the calculated GFR & GFRAA in patients over 70 years has not been determined. Clinical correlation is essential. Order Comment: 414-2 Result Comment: The validity of the calculated GFR GFRAA in patients over70 years has not been determined. Clinical correlation isessential. Performed By: #### L 500.4050, L506.1000, L501.9985, L501.7900, L503.0105, L501.5200, L100.0100 ####[facility] [address] [place], [address] Serum or plasma urea nitroge n measurement (mass/volume)Ordered By: Carla Crane on 07-15-2024 Urea nitrogen [Mass/Vol] 30 mg/dL High 7-18 [facility] Comment on above: Order Comment: 414-2 Performed By: #### L 500.4050, L506.1000, L501.9985, L501.7900, L503.0105, L501.5200, L100.0100 ####[facility] [address] [place], [address] Sodium levelOrdered By: Luca Crane on 07-15-2024 Sodium [Moles/Vol] 138 mmol/L Normal 136-145 [facility] Comment on above: Order Comment: 414-2 Performed By: #### L 500.4050, L506.1000, L501.9985, L501.7900, L503.0105, L501.5200, L100.0100 ####[facility] [address] [place], [address] Total proteinOrdered By: Ming Crane on 07-15-2024 Protein [Mass/Vol] 8.0 g/dL 6.4-8.2 [facility] Vitamin B12on 07-15-2024 Cobalamin (Vitamin B12) [Mass/Vol] 692 pg/mL Normal 211-911 [facility] Comment on above: Order Comment: 414-2 Performed By: #### L 500.4050, L506.1000, L501.9985, L501.7900, L503.0105, L501.5200, L100.0100 ####[facility] [address] [place], [place], [phone] Vitamin B12 measurementOrder ed By: Carla Crane on 07-15-2024 Cobalamin (Vitamin B12) [Mass/Vol] 692 pg/mL 211-911 [facility] Vitamin D,25 Hydroxyon 07-15 Vitamin D 25-OH 36.0 ng/mL Normal [facility] Comment on above: Order Comment: 414-2 Result Comment: Teri min D 25(OH) Status Range Deficiency <20 ng/mL (50nmol/L) Insufficiency 20 - 30 ng/mL (50 - 75 nmol/L) Sufficiency 30 - 100 ng/mL (75 - 250 nmol/L) Toxicity >100 ng/mL (>250 nmol/L) Performed By: #### L 500.4050, L506.1000, L501.9985, L501.7900, L503.0105, L501.5200, L100.0100 ####[facility] [address] [place], [place], [phone] White blood cell (WBC) count Ordered By: Carla Crane on 07-15-2024 WBC (Bld) [#/Vol] 5.1 10*3/uL 4.4-11.0 [facility] carBAMazepine [Mass/Vol]Orde red By: Carla Crane on 07-15-2024 Carbamazepine (Tegretol) Level 7.0 ug/mL 4.0-12.0 [facility] Basic Metabolic Profile (BMP )on 04-15-2024 BUN Normal 7-18 [facility] Comment on above: Result Comment: Canc elled via OM: Order cancelled - Patient discharged Performed By: #### L 100.0100, L500.2500 ####[facility] [address] [place], [address] BUN/CRE Normal 10-20 [facility] Comment on above: Result Comment: Canc elled via OM: Order cancelled - Patient discharged Performed By: #### L 100.0100, L500.2500 ####[facility] [address] [place], [address] CA,Total Normal 8.5-10.1 [facility] Comment on above: Result Comment: Canc elled via OM: Order cancelled - Patient discharged Performed By: #### L 100.0100, L500.2500 ####[facility] [address] [place], [address] CL Normal 98-107 [facility] Comment on above: Result Comment: Canc elled via OM: Order cancelled - Patient discharged Performed By: #### L 100.0100, L500.2500 ####[facility] [address] [place], [address] CO2 Normal 21.0-32.0 [facility] Comment on above: Result Comment: Canc elled via OM: Order cancelled - Patient discharged Performed By: #### L 100.0100, L500.2500 ####[facility] [address] [place], [address] CREAT,SERUM Normal 0.70-1.30 [facility] Comment on above: Result Comment: Canc elled via OM: Order cancelled - Patient discharged Performed By: #### L 100.0100, L500.2500 ####[facility] [address] [place], [address] EST GFR Normal >60 [facility] Comment on above: Result Comment: Canc elled via OM: Order cancelled - Patient discharged Performed By: #### L 100.0100, L500.2500 ####[facility] [address] [place], [address] EST GFR - AA Normal >60 [facility] Comment on above: Result Comment: Canc elled via OM: Order cancelled - Patient discharged Performed By: #### L 100.0100, L500.2500 ####[facility] [address] [place], [address] GAP Normal 5-15 [facility] Comment on above: Result Comment: Canc elled via OM: Order cancelled - Patient discharged Performed By: #### L 100.0100, L500.2500 ####[facility] [address] [place], [address] GLU Normal 74-106 [facility] Comment on above: Result Comment: Canc elled via OM: Order cancelled - Patient discharged Performed By: #### L 100.0100, L500.2500 ####[facility] [address] [place], [address] Potassium Normal 3.5-5.1 [facility] Comment on above: Result Comment: Canc elled via OM: Order cancelled - Patient discharged Performed By: #### L 100.0100, L500.2500 ####[facility] [address] [place], [address] Basic Metabolic Profile (BMP) Normal 136-145 [facility] Comment on above: Result Comment: Canc elled via OM: Order cancelled - Patient discharged Performed By: #### L 100.0100, L500.2500 ####[facility] [address] [place], [address] CBC W/Diff, Automatedon 10-2 Absolute Neut Normal 2.0-7.7 [facility] Comment on above: Result Comment: Canc elled via OM: Order cancelled - Patient discharged Performed By: #### L 100.0100, L500.2500 ####[facility] [address] [place], [address] HCT Normal 40-54 [facility] Comment on above: Result Comment: Canc elled via OM: Order cancelled - Patient discharged Performed By: #### L 100.0100, L500.2500 ####[facility] [address] [place], [address] HGB Normal 13.0-16.5 [facility] Comment on above: Result Comment: Canc elled via OM: Order cancelled - Patient discharged Performed By: #### L 100.0100, L500.2500 ####[facility] [address] [place], [address] MCH Normal 27.0-32.0 [facility] Comment on above: Result Comment: Canc elled via OM: Order cancelled - Patient discharged Performed By: #### L 100.0100, L500.2500 ####[facility] [facility] [address] [place], [address] MCHC Normal 32-36 [facility] Comment on above: Result Comment: Canc elled via OM: Order cancelled - Patient discharged Performed By: #### L 100.0100, L500.2500 ####[facility] [address] [place], [address] MCV Normal 80-94 [facility] Comment on above: Result Comment: Canc elled via OM: Order cancelled - Patient discharged Performed By: #### L 100.0100, L500.2500 ####[facility] [address] [place], [address] NEUT% Normal 47-70 [facility] Comment on above: Result Comment: Canc elled via OM: Order cancelled - Patient discharged Performed By: #### L 100.0100, L500.2500 ####[facility] [address] [place], [address] PLT Normal 150-450 [facility] Comment on above: Result Comment: Canc elled via OM: Order cancelled - Patient discharged Performed By: #### L 100.0100, L500.2500 ####[facility] [address] [place], [address] RBC Normal 4.6-6.2 [facility] Comment on above: Result Comment: Canc elled via OM: Order cancelled - Patient discharged Performed By: #### L 100.0100, L500.2500 ####[facility] [address] [place], [address] RDW CV Normal 11.6-14.6 [facility] Comment on above: Result Comment: Canc elled via OM: Order cancelled - Patient discharged Performed By: #### L 100.0100, L500.2500 ####[facility] [address] [place], [address] RDW SD Normal 35.1-43.9 [facility] Comment on above: Result Comment: Canc elled via OM: Order cancelled - Patient discharged Performed By: #### L 100.0100, L500.2500 ####[facility] [address] [place], [address] WBC Normal 4.4-11.0 [facility] Comment on above: Result Comment: Canc elled via OM: Order cancelled - Patient discharged Performed By: #### L 100.0100, L500.2500 ####[facility] [address] [place], [address] Basic Metabolic Profile (BMP )on 04-14-2024 BUN Normal 7-18 [facility] Comment on above: Result Comment: Canc elled via OM: Order cancelled - Patient discharged Performed By: #### L 100.0100, L500.2500 ####[facility] [address] [place], [address] BUN/CRE Normal 10-20 [facility] Comment on above: Result Comment: Canc elled via OM: Order cancelled - Patient discharged Performed By: #### L 100.0100, L500.2500 ####[facility] [address] [place], [address] CA,Total Normal 8.5-10.1 [facility] Comment on above: Result Comment: Canc elled via OM: Order cancelled - Patient discharged Performed By: #### L 100.0100, L500.2500 ####[facility] [address] [place], [address] CL Normal 98-107 [facility] Comment on above: Result Comment: Canc elled via OM: Order cancelled - Patient discharged Performed By: #### L 100.0100, L500.2500 ####[facility] [address] [place], [address] CO2 Normal 21.0-32.0 [facility] Comment on above: Result Comment: Canc elled via OM: Order cancelled - Patient discharged Performed By: #### L 100.0100, L500.2500 ####[facility] [address] [place], [address] CREAT,SERUM Normal 0.70-1.30 [facility] Comment on above: Result Comment: Canc elled via OM: Order cancelled - Patient discharged Performed By: #### L 100.0100, L500.2500 ####[facility] [address] [place], [address] EST GFR Normal >60 [facility] Comment on above: Result Comment: Canc elled via OM: Order cancelled - Patient discharged Performed By: #### L 100.0100, L500.2500 ####[facility] [address] [place], [address] EST GFR - AA Normal >60 [facility] Comment on above: Result Comment: Canc elled via OM: Order cancelled - Patient discharged Performed By: #### L 100.0100, L500.2500 ####[facility] [address] [place], [address] GAP Normal 5-15 [facility] Comment on above: Result Comment: Canc elled via OM: Order cancelled - Patient discharged Performed By: #### L 100.0100, L500.2500 ####[facility] [address] [place], [address] GLU Normal 74-106 [facility] Comment on above: Result Comment: Canc elled via OM: Order cancelled - Patient discharged Performed By: #### L 100.0100, L500.2500 ####[facility] [address] [place], [address] Potassium Normal 3.5-5.1 [facility] Comment on above: Result Comment: Canc elled via OM: Order cancelled - Patient discharged Performed By: #### L 100.0100, L500.2500 ####[facility] [address] [place], [address] Basic Metabolic Profile (BMP) Normal 136-145 [facility] Comment on above: Result Comment: Canc elled via OM: Order cancelled - Patient discharged Performed By: #### L 100.0100, L500.2500 ####[facility] [address] [place], [address] CBC W/Diff, Automatedon 10-2 Absolute Neut Normal 2.0-7.7 [facility] Comment on above: Result Comment: Canc elled via OM: Order cancelled - Patient discharged Performed By: #### L 100.0100, L500.2500 ####[facility] [address] [place], [address] HCT Normal 40-54 [facility] Comment on above: Result Comment: Canc elled via OM: Order cancelled - Patient discharged Performed By: #### L 100.0100, L500.2500 ####[facility] [address] [place], [address] HGB Normal 13.0-16.5 [facility] Comment on above: Result Comment: Canc elled via OM: Order cancelled - Patient discharged Performed By: #### L 100.0100, L500.2500 ####[facility] [address] [place], [address] MCH Normal 27.0-32.0 [facility] Comment on above: Result Comment: Canc elled via OM: Order cancelled - Patient discharged Performed By: #### L 100.0100, L500.2500 ####[facility] [address] [place], [address] MCHC Normal 32-36 [facility] Comment on above: Result Comment: Canc elled via OM: Order cancelled - Patient discharged Performed By: #### L 100.0100, L500.2500 ####[facility] [address] [place], [address] MCV Normal 80-94 [facility] Comment on above: Result Comment: Canc elled via OM: Order cancelled - Patient discharged Performed By: #### L 100.0100, L500.2500 ####[facility] [address] [place], [address] NEUT% Normal 47-70 [facility] Comment on above: Result Comment: Canc elled via OM: Order cancelled - Patient discharged Performed By: #### L 100.0100, L500.2500 ####[facility] [address] [place], [address] PLT Normal 150-450 [facility] Comment on above: Result Comment: Canc elled via OM: Order cancelled - Patient discharged Performed By: #### L 100.0100, L500.2500 ####[facility] [address] [place], [address] RBC Normal 4.6-6.2 [facility] Comment on above: Result Comment: Canc elled via OM: Order cancelled - Patient discharged Performed By: #### L 100.0100, L500.2500 ####[facility] [address] [place], [address] RDW CV Normal 11.6-14.6 [facility] Comment on above: Result Comment: Canc elled via OM: Order cancelled - Patient discharged Performed By: #### L 100.0100, L500.2500 ####[facility] [address] [place], [address] RDW SD Normal 35.1-43.9 [facility] Comment on above: Result Comment: Canc elled via OM: Order cancelled - Patient discharged Performed By: #### L 100.0100, L500.2500 ####[facility] [address] [place], [address] WBC Normal 4.4-11.0 [facility] Comment on above: Result Comment: Canc elled via OM: Order cancelled - Patient discharged Performed By: #### L 100.0100, L500.2500 ####[facility] [address] [place], [address] UA DIP, URINE (POC)on 2023 BILIRUBIN UA (POCT) Negative Negative [facility] CLARITY UA (POCT) Cloudy [facility] COLOR UA (POCT) Yellow [facility] GLUCOSE UA (POCT) Negative Negative mg/dL [facility] Hemoglobin Ql (U) Negative Negative [facility] Interpretation and review of laboratory results Abnormal [facility] KETONE UA (POCT) Trace Negative mg/dL [facility] LEUKOCYTES UA (POCT) Trace Abnormal Negative [facility] NITRITE UA (POCT) Positive Abnormal Negative [facility] PH UA (POCT) 6.0 4.5 - 8.0 [facility] Protein Ql (U) 100 mg/dL Abnormal Negative [facility] SPECIFIC GRAVITY UA (POCT) 1.025 1.005 - 1.030 [facility] UROBILINOGEN UA (POCT) 0.2 Malaika l E.U./dL [facility] Location:[facility], [address] [facility], [place], [place], [address] [place] [address] POINT OF CARE [facility] Absolute lymphocyte countOrd ered By: Brody Maynard on 07-31-2023 Lymphocytes Auto (Unsp spec) [#/Vol] 0.39 10*3/uL 0.83-4.51 [facility] Automated lymphocyte count a s percentage of total leukocytesOrdered By: Brody Maynard on 07-31-2023 Lymphocytes/100 WBC Auto (Unsp spec) 7.1 % 19-41 [facility] Basophil percentageOrdered B y: Brody Maynard on 07-31-2023 Basophil percentage 12.6 g/dL 13.0-16.5 [facility] Basophil percentage 113 mg/dL 74-106 [facility] Basophil percentage 139 mmol/L 136-145 [facility] Basophil percentage 4.0 mmol/L 3.5-5.1 [facility] Basophil percentage 102 mmol/L 98-107 [facility] Basophils (Bld) [#/Vol] 5.5 10*3/uL 4.4-11.0 [facility] Basophils (Bld) [#/Vol] 4.7 10*3/uL 2.0-7.7 [facility] Basophils/100 WBC (Bld) 85.0 % 47-70 [facility] Basophils/100 WBC (Bld) 7.1 % 0-10 [facility] Basophils/100 WBC (Bld) 0.0 % 0-5 [facility] Basophils/100 WBC (Bld) 0.4 % 0-1 [facility] Determination of erythrocyte mean corpuscular volume (MCV)Ordered By: Brody Maynard on 07-31-2023 MCV (RBC) [Entitic vol] 98.4 fL 80-94 [facility] Erythrocyte distribution wid th ratioOrdered By: Brody Maynard on 07-31-2023 Erythrocyte distribution width (RBC) [Ratio] 13.2 % 11.6-14.6 [facility] Erythrocyte distribution wid th standard deviationOrdered By: Brody Maynard on 07-31-2023 Erythrocyte distribution width (RBC) [Entitic vol] 47.2 fL 35.1-43.9 [facility] Hematocrit Auto (Bld) [Volum e fraction]Ordered By: Brody Maynard on 07-31-2023 Hematocrit (Bld) [Volume fraction] 37.9 % 40-54 [facility] Immature granulocytes/100 WB C Auto (Bld)Ordered By: Brody Maynard on 07-31-2023 Immature granulocytes/100 WBC (Bld) 0.400 % 0.0-0.9 [facility] No Panel InformationOrdered By: Brody Maynard on 07-31-2023 32.7 pg 27.0-32.0 [facility] 33.2 g/dL 32-36 [facility] 284 K/mm3 150-450 [facility] 10.1 fl 6.2-12.0 [facility] 0 % 0-5 [facility] 77 mL/min >60 [facility] 93 mL/min >60 [facility] 60.90 ml/min [facility] 22.8 RATIO 10-20 [facility] 29.0 mmol/L 21.0-32.0 [facility] RBC Auto (Bld) [#/Vol]Ordere d By: Brody Maynard on 07-31-2023 RBC (Bld) [#/Vol] 3.85 10*6/uL 4.6-6.2 [facility] Serum or plasma calcium luis urement (mass/volume)Ordered By: Brody Maynard on 07-31-2023 Calcium [Mass/Vol] 8.6 mg/dL 8.5-10.1 [facility] Serum or plasma creatinine m easurement (mass/volume)Ordered By: Brody Maynard on 07-31-2023 Creatinine [Mass/Vol] 1.01 mg/dL 0.70-1.30 [facility] Serum or plasma urea nitroge n measurement (mass/volume)Ordered By: Brody Maynard on 07-31-2023 Urea nitrogen [Mass/Vol] 23 mg/dL 7-18 [facility] Thin prep Papanicolaou smear with manual screeningOrdered By: Brody Maynard on 07-31-2023 Thin prep Papanicolaou smear with manual screening 8 5-15 [facility] Absolute lymphocyte countOrd ered By: Андрей Ng on 07-30-2023 Lymphocytes Auto (Unsp spec) [#/Vol] 0.60 10*3/uL 0.83-4.51 [facility] Automated lymphocyte count a s percentage of total leukocytesOrdered By: Андрей Ng on 07-30-2023 Lymphocytes/100 WBC Auto (Unsp spec) 10.9 % 19-41 [facility] Base excessOrdered By: ED HI OVIDER on 07-30-2023 Base excess Calc (BldV) [Moles/Vol] 2 mmol/L -1.0-3.5 [facility] Basophil percentageOrdered B y: Андрей Ng on 07-30-2023 Basophil percentage 0 SEEN /hpf 0-5 [facility] Basophil percentage 13.3 g/dL 13.0-16.5 [facility] Basophil percentage 114 mg/dL 74-106 [facility] Basophil percentage 138 mmol/L 136-145 [facility] Basophil percentage 4.2 mmol/L 3.5-5.1 [facility] Basophil percentage 102 mmol/L 98-107 [facility] Basophils (Bld) [#/Vol] 5.5 10*3/uL 4.4-11.0 [facility] Basophils (Bld) [#/Vol] 4.2 10*3/uL 2.0-7.7 [facility] Basophils/100 WBC (Bld) 76.5 % 47-70 [facility] Basophils/100 WBC (Bld) 10.7 % 0-10 [facility] Basophils/100 WBC (Bld) 0.5 % 0-5 [facility] Basophils/100 WBC (Bld) 0.9 % 0-1 [facility] Bilirubin Test strip Ql (U)O rdered By: Андрей Ng on 07-30-2023 Bilirubin Ql (U) Negative Negative [facility] CO2 (BldV) [Moles/Vol]Ordere d By: ED PROVIDER on 07-30-2023 CO2 [Moles/Vol] 29 mmol/L 23-33 [facility] Determination of erythrocyte mean corpuscular volume (MCV)Ordered By: Андрей Ng on 07-30-2023 MCV (RBC) [Entitic vol] 99.3 fL 80-94 [facility] Erythrocyte distribution wid th ratioOrdered By: Андрей Ng on 07-30-2023 Erythrocyte distribution width (RBC) [Ratio] 13.2 % 11.6-14.6 [facility] Erythrocyte distribution wid th standard deviationOrdered By: Андрей Ng on 07-30-2023 Erythrocyte distribution width (RBC) [Entitic vol] 48.3 fL 35.1-43.9 [facility] Hematocrit Auto (Bld) [Volum e fraction]Ordered By: Андрей Ng on 07-30-2023 Hematocrit (Bld) [Volume fraction] 40.4 % 40-54 [facility] Immature granulocytes/100 WB C Auto (Bld)Ordered By: Андрей Ng on 07-30-2023 Immature granulocytes/100 WBC (Bld) 0.500 % 0.0-0.9 [facility] Ketones Test strip Ql (U)Ord ered By: Андрей Ng on 07-30-2023 Ketones Ql (U) Negative Negative [facility] Mucus LM Ql (Urine sed)Order ed By: Андрей Ng on 07-30-2023 Mucus Ql (Urine sed) 0 SEEN /hpf [facility] Nitrite Test strip Ql (U)Ord ered By: Андрей Ng on 07-30-2023 Nitrite Ql (U) Negative Negative [facility] No Panel InformationOrdered By: Андрей Ng on 07-30-2023 0 SEEN /hpf 0-5 [facility] Influenzae A [facility] 32.7 pg 27.0-32.0 [facility] 32.9 g/dL 32-36 [facility] 262 K/mm3 150-450 [facility] 9.4 fl 6.2-12.0 [facility] 0 % 0-5 [facility] 67 mL/min >60 [facility] 81 mL/min >60 [facility] 55.00 ml/min [facility] 22.8 RATIO 10-20 [facility] 15 pg/mL 3.0-78.0 [facility] 29.0 mmol/L 21.0-32.0 [facility] 218.8 pg/mL 0-100 [facility] No Panel InformationOrdered By: ED PROVIDER on 07-30-2023 LASHAE [facility] Not entered [facility] Cannula [facility] 3.0 [facility] 28 mmol/L 22-26 [facility] 69 % 50-70 [facility] PCO2 venousOrdered By: ED HI OVIDER on 07-30-2023 CO2 (BldV) [Partial pressure] 48.6 mm[Hg] 41-51 [facility] PO2 venousOrdered By: ED PRO VIDER on 07-30-2023 Oxygen (BldV) [Partial pressure] 38 mm[Hg] 25-40 [facility] Protein Test strip Ql (U)Ord ered By: Андрей Ng on 07-30-2023 Protein Ql (U) 30 mg/dl Negative [facility] RBC Auto (Bld) [#/Vol]Ordere d By: Аднрей Ng on 07-30-2023 RBC (Bld) [#/Vol] 4.07 10*6/uL 4.6-6.2 [facility] Serum or plasma calcium luis urement (mass/volume)Ordered By: Андрей Ng on 07-30-2023 Calcium [Mass/Vol] 9.2 mg/dL 8.5-10.1 [facility] Serum or plasma creatinine m easurement (mass/volume)Ordered By: Андрей Ng on 07-30-2023 Creatinine [Mass/Vol] 1.14 mg/dL 0.70-1.30 [facility] Serum or plasma urea nitroge n measurement (mass/volume)Ordered By: Андрей Ng on 07-30-2023 Urea nitrogen [Mass/Vol] 26 mg/dL 7-18 [facility] Squamous epithelial cells de tection in urine sediment by light microscopyOrdered By: Андрей Ng on 07-30-2023 Epithelial cells.squamous LM Ql (Urine sed) 0 SEEN /hpf 0-5 [facility] Thin prep Papanicolaou smear with manual screeningOrdered By: Андрей Ng on 07-30-2023 Thin prep Papanicolaou smear with manual screening 7 5-15 [facility] Urine blood detectionOrdered By: Андрей Ng on 07-30-2023 RBC Ql (U) 10 /ul Negative [facility] Urine clarityOrdered By: Italia Ng on 07-30-2023 Clarity (U) Clear Clear [facility] Urine color determinationOrd ered By: Андрей Ng on 07-30-2023 Color (U) Yellow Yellow [facility] Urine glucose detectionOrder ed By: Андрей Ng on 07-30-2023 Glucose Ql (U) Normal mg/dl Normal [facility] Urine leukocyte esterase det ection by dipstickOrdered By: Андрей Ng on 07-30-2023 Leukocyte esterase Test strip Ql (U) Negative Negative [facility] Urine pHOrdered By: Андрей garland on 07-30-2023 pH (U) 7.0 [pH] 5.0 - 8.0 [facility] Urine sediment bacteria coun t by microscopy (number/high power field)Ordered By: Андрей Ng on 07-30-2023 Bacteria LM.HPF (Urine sed) [#/Area] 0 /[HPF] None Seen [facility] Urine specific gravity measu rementOrdered By: Андрей Ng on 07-30-2023 Specific gravity (U) [Rel density] 1.010 1.002-1.030 [facility] Urine urobilinogen measureme ntOrdered By: Андрей Ng on 07-30-2023 Urobilinogen Ql (U) Normal mg/dl Normal [facility] Venous blood pH measurementO rdered By: ED PROVIDER on 07-30-2023 pH (BldV) 7.36 [pH] 7.32-7.42 [facility] Basophil percentageOrdered B y: Андрей Cooley on 07-27-2023 Basophil percentage 12.8 g/dL 13.0-16.5 [facility] Basophil percentage 103 mg/dL 74-106 [facility] Basophil percentage 141 mmol/L 136-145 [facility] Basophil percentage 3.7 mmol/L 3.5-5.1 [facility] Basophil percentage 110 mmol/L 98-107 [facility] Basophils (Bld) [#/Vol] 6.8 10*3/uL 4.4-11.0 [facility] Determination of erythrocyte mean corpuscular volume (MCV)Ordered By: Андрей Cooley on 07-27-2023 MCV (RBC) [Entitic vol] 98.5 fL 80-94 [facility] Erythrocyte distribution wid th ratioOrdered By: Андрей Cooley on 07-27-2023 Erythrocyte distribution width (RBC) [Ratio] 13.1 % 11.6-14.6 [facility] Erythrocyte distribution wid th standard deviationOrdered By: Андрей Cooley on 07-27-2023 Erythrocyte distribution width (RBC) [Entitic vol] 46.7 fL 35.1-43.9 [facility] Hematocrit Auto (Bld) [Volum e fraction]Ordered By: Андрей Cooley on 07-27-2023 Hematocrit (Bld) [Volume fraction] 38.9 % 40-54 [facility] No Panel InformationOrdered By: Андрей Cooley on 07-27-2023 32.4 pg 27.0-32.0 [facility] 32.9 g/dL 32-36 [facility] 246 K/mm3 150-450 [facility] 10.1 fl 6.2-12.0 [facility] 56 mL/min >60 [facility] 68 mL/min >60 [facility] 26.5 RATIO 10-20 [facility] 29.0 mmol/L 21.0-32.0 [facility] RBC Auto (Bld) [#/Vol]Ordere d By: Андрей Cooley on 07-27-2023 RBC (Bld) [#/Vol] 3.95 10*6/uL 4.6-6.2 [facility] Serum or plasma calcium luis urement (mass/volume)Ordered By: Андрей Cooley on 07-27-2023 Calcium [Mass/Vol] 9.5 mg/dL 8.5-10.1 [facility] Serum or plasma creatinine m easurement (mass/volume)Ordered By: Андрей Cooley on 07-27-2023 Creatinine [Mass/Vol] 1.32 mg/dL 0.70-1.30 [facility] Serum or plasma urea nitroge n measurement (mass/volume)Ordered By: Андрей Cooley on 07-27-2023 Urea nitrogen [Mass/Vol] 35 mg/dL 7-18 [facility] Thin prep Papanicolaou smear with manual screeningOrdered By: Андрей Cooley on 07-27-2023 Thin prep Papanicolaou smear with manual screening 2 5-15 [facility] Absolute lymphocyte countOrd ered By: Андрей Cooley on 07-25-2023 Lymphocytes Auto (Unsp spec) [#/Vol] 1.22 10*3/uL 0.83-4.51 [facility] Automated lymphocyte count a s percentage of total leukocytesOrdered By: Андрей Cooley on 07-25-2023 Lymphocytes/100 WBC Auto (Unsp spec) 17.6 % 19-41 [facility] Basophil percentageOrdered B y: Андрей Cooley on 07-25-2023 Basophil percentage 14.3 g/dL 13.0-16.5 [facility] Basophil percentage 126 mg/dL 74-106 [facility] Basophil percentage 138 mmol/L 136-145 [facility] Basophil percentage 3.5 mmol/L 3.5-5.1 [facility] Basophil percentage 105 mmol/L 98-107 [facility] Basophils (Bld) [#/Vol] 6.9 10*3/uL 4.4-11.0 [facility] Basophils (Bld) [#/Vol] 4.9 10*3/uL 2.0-7.7 [facility] Basophils/100 WBC (Bld) 70.5 % 47-70 [facility] Basophils/100 WBC (Bld) 10.0 % 0-10 [facility] Basophils/100 WBC (Bld) 0.7 % 0-5 [facility] Basophils/100 WBC (Bld) 0.9 % 0-1 [facility] Determination of erythrocyte mean corpuscular volume (MCV)Ordered By: Андрей Cooley on 07-25-2023 MCV (RBC) [Entitic vol] 95.2 fL 80-94 [facility] Erythrocyte distribution wid th ratioOrdered By: Андрей Cooley on 07-25-2023 Erythrocyte distribution width (RBC) [Ratio] 12.7 % 11.6-14.6 [facility] Erythrocyte distribution wid th standard deviationOrdered By: Андрей Cooley on 07-25-2023 Erythrocyte distribution width (RBC) [Entitic vol] 44.9 fL 35.1-43.9 [facility] Hematocrit Auto (Bld) [Volum e fraction]Ordered By: Андрей Cooley on 07-25-2023 Hematocrit (Bld) [Volume fraction] 41.9 % 40-54 [facility] Immature granulocytes/100 WB C Auto (Bld)Ordered By: Андрей Cooley on 07-25-2023 Immature granulocytes/100 WBC (Bld) 0.300 % 0.0-0.9 [facility] No Panel InformationOrdered By: Андрей Cooley on 07-25-2023 32.5 pg 27.0-32.0 [facility] 34.1 g/dL 32-36 [facility] 245 K/mm3 150-450 [facility] 9.7 fl 6.2-12.0 [facility] 0 % 0-5 [facility] 62 mL/min >60 [facility] 75 mL/min >60 [facility] 39.28 ml/min [facility] 13.2 RATIO 10-20 [facility] [facility] 25.0 mmol/L 21.0-32.0 [facility] RBC Auto (Bld) [#/Vol]Ordere d By: Андрей Cooley on 07-25-2023 RBC (Bld) [#/Vol] 4.40 10*6/uL 4.6-6.2 [facility] Serum or plasma calcium luis urement (mass/volume)Ordered By: Андрей Cooley on 07-25-2023 Calcium [Mass/Vol] 9.3 mg/dL 8.5-10.1 [facility] Serum or plasma creatinine m easurement (mass/volume)Ordered By: Андрей Cooley on 07-25-2023 Creatinine [Mass/Vol] 1.21 mg/dL 0.70-1.30 [facility] Serum or plasma urea nitroge n measurement (mass/volume)Ordered By: Андрей Cooley on 07-25-2023 Urea nitrogen [Mass/Vol] 16 mg/dL 7-18 [facility] Thin prep Papanicolaou smear with manual screeningOrdered By: Андрей Cooley on 07-25-2023 Thin prep Papanicolaou smear with manual screening 8 5-15 [facility] Absolute lymphocyte countOrd ered By: Raul Melchor on 07-24-2023 Lymphocytes Auto (Unsp spec) [#/Vol] 1.14 10*3/uL 0.83-4.51 [facility] Automated lymphocyte count a s percentage of total leukocytesOrdered By: Raul Melchor on 07-24-2023 Lymphocytes/100 WBC Auto (Unsp spec) 16.0 % 19-41 [facility] Basophil percentageOrdered B y: Raul Melchor on 07-24-2023 Basophils/100 WBC (Bld) 1.0 % 0-1 [facility] Chloride [Moles/Vol] 103 mmol/L 98-107 [facility] Eosinophils/100 WBC (Bld) 1.1 % 0-5 [facility] Glucose [Mass/Vol] 134 mg/dL 74-106 [facility] Comment on above: Fasting Glucose resu lt greater than or equal to 126 mg/dL suggests DIABETES MELLITUS per A.D.A. criteria. Hemoglobin (Bld) [Mass/Vol] 16.2 g/dL 13.0-16.5 [facility] Monocytes/100 WBC (Bld) 7.3 % 0-10 [facility] Neutrophils (Bld) [#/Vol] 5.3 10*3/uL 2.0-7.7 [facility] Neutrophils/100 WBC (Bld) 74.0 % 47-70 [facility] Potassium [Moles/Vol] 3.8 mmol/L 3.5-5.1 [facility] Comment on above: Moderate Hemolysis, Result may be falsely increased. Sodium [Moles/Vol] 139 mmol/L 136-145 [facility] WBC (Bld) [#/Vol] 7.1 10*3/uL 4.4-11.0 [facility] Determination of erythrocyte mean corpuscular volume (MCV)Ordered By: Raul Melchor on 07-24-2023 MCV (RBC) [Entitic vol] 94.8 fL 80-94 [facility] Erythrocyte distribution wid th ratioOrdered By: Raul Melchor on 07-24-2023 Erythrocyte distribution width (RBC) [Ratio] 12.8 % 11.6-14.6 [facility] Erythrocyte distribution wid th standard deviationOrdered By: Raul Melchor on 07-24-2023 Erythrocyte distribution width (RBC) [Entitic vol] 44.3 fL 35.1-43.9 [facility] Hematocrit Auto (Bld) [Volum e fraction]Ordered By: Raul Melchor on 07-24-2023 Hematocrit (Bld) [Volume fraction] 47.4 % 40-54 [facility] Immature granulocytes/100 WB C Auto (Bld)Ordered By: Raul Melchor on 07-24-2023 Immature granulocytes/100 WBC (Bld) 0.600 % 0.0-0.9 [facility] Comment on above: IG% - Immature Granu locytes (promyelocytes, myelocytes and metamyelocytes) > 1% indicates that a LEFT SHIFT is Present. Laboratory - Chemistry and C hemistry - challengeOrdered By: Raul Melchor on 07-24-2023 CO2 [Moles/Vol] 28.0 mmol/L 21.0-32.0 [facility] Urea nitrogen/Creatinine [Mass ratio] 14.1 mg/mg 10-20 [facility] Laboratory - Hematology and Cell countsOrdered By: Raul Melchor on 07-24-2023 MCH (RBC) [Entitic mass] 32.4 pg 27.0-32.0 [facility] MCHC (RBC) [Mass/Vol] 34.2 g/dL 32-36 [facility] Nucleated RBC/100 WBC (Bld) [Ratio] 0 % 0-5 [facility] Platelets (Bld) [#/Vol] 285 10*3/uL 150-450 [facility] No Panel InformationOrdered By: Raul Melchor on 07-24-2023 Estimated Creatinine Clearance Calc 48.70 ml/min [facility] Estimated GFR (MDRD) Amer 71 mL/min >60 [facility] Comment on above: GFR Calc Estimated GFR (MDRD) Non-Af Amer 58 mL/min >60 [facility] Comment on above: Non- GFR Calc Platelet mean volume Ye-Ec ker (Bld) [Entitic vol]Ordered By: Raul Melchor on 07-24-2023 Platelet mean volume (Bld) [Entitic vol] 9.8 fL 6.2-12.0 [facility] RBC Auto (Bld) [#/Vol]Ordere d By: Raul Melchor on 07-24-2023 RBC (Bld) [#/Vol] 5.00 10*6/uL 4.6-6.2 [facility] Serum or plasma calcium luis urement (mass/volume)Ordered By: Raul Melchor on 07-24-2023 Calcium [Mass/Vol] 9.8 mg/dL 8.5-10.1 [facility] Serum or plasma creatinine m easurement (mass/volume)Ordered By: Raul Melchor on 07-24-2023 Creatinine [Mass/Vol] 1.28 mg/dL 0.70-1.30 [facility] Comment on above: The validity of the calculated GFR & GFRAA in patients over 70 years has not been determined. Clinical correlation is essential. Serum or plasma urea nitroge n measurement (mass/volume)Ordered By: Raul Melchor on 07-24-2023 Urea nitrogen [Mass/Vol] 18 mg/dL 7-18 [facility] Thin prep Papanicolaou smear with manual screeningOrdered By: Raul Melchor on 07-24-2023 Thin prep Papanicolaou smear with manual screening 8 5-15 [facility] UAon 07-10-2023 Color (U) Yellow Normal [facility] ([place]) Comment on above: Performed By: #### U A #### [address] [address] Glucose (U) [Mass/Vol] Negative Normal Negative [facility] ([place]) Comment on above: Performed By: #### U A #### [address] [address] Ketones Ql (U) Negative Normal Neg-Trace [facility] ([place]) Comment on above: Performed By: #### U A #### [address] [address] UA Appear Clear Normal Clear [facility] ([place]) Comment on above: Performed By: #### U A #### [address] [address] UA Blood Negative Normal Neg-Trace [facility] ([place]) Comment on above: Performed By: #### U A #### [address] [address] UA Leuk Est Negative Normal Negative [facility] ([place]) Comment on above: Performed By: #### U A #### [address] [address] UA Nitrite Negative Normal Negative [facility] ([place]) Comment on above: Performed By: #### U A #### [place] [address] UA pH 5.5 Normal 5.0 - 8.0 [facility] ([place] Comment on above: Performed By: #### U A #### [place] [address] UA Protein 30 mg/dL Normal Negative [facility] ([place]) Comment on above: Performed By: #### U A #### [place] [address] UA Spec Grav 1.020 Normal 1.006-1.029 [facility] ([place]) Comment on above: Performed By: #### U A #### [place] [address] UA Specimen Type Void Normal [facility] ([place] Comment on above: Performed By: #### U A #### [place] [address] UA Urobilinogen 0.2 E.U./dL Normal 0.2-1.0 [facility] ([place]) Comment on above: Performed By: #### U A #### [place] [address] Urobilinogen (U) [Mass/Vol] Negative Normal Neg-Trace [facility] ([place]) Comment on above: Performed By: #### U A #### [place] [address] Absolute lymphocyte countOrd ered By: Daija Morton on 06-14-2023 Lymphocytes Auto (Unsp spec) [#/Vol] 1.09 10*3/uL 0.83-4.51 [facility] Basophil percentageOrdered B y: Daija Morton on 06-14-2023 Basophil percentage 108 mg/dL 74-106 [facility] Basophil percentage 139 mmol/L 136-145 [facility] Basophil percentage 4.2 mmol/L 3.5-5.1 [facility] Basophil percentage 104 mmol/L 98-107 [facility] Basophils (Bld) [#/Vol] 6.5 10*3/uL 4.4-11.0 [facility] Basophils (Bld) [#/Vol] 4.7 10*3/uL 2.0-7.7 [facility] Basophils/100 WBC (Bld) 1.4 % 0-1 [facility] Basophils/100 WBC (Bld) 72.2 % 47-70 [facility] Basophils/100 WBC (Bld) 2.0 % 0-5 [facility] Chloride [Moles/Vol] 104 mmol/L 98-107 [facility] Eosinophils/100 WBC (Bld) 2.0 % 0-5 [facility] Glucose [Mass/Vol] 108 mg/dL 74-106 [facility] Comment on above: Fasting Glucose resu lt from 100 to 125 mg/dL suggests IMPAIRED HOMEOSTASIS per A.D.A. criteria. Neutrophils (Bld) [#/Vol] 4.7 10*3/uL 2.0-7.7 [facility] Neutrophils/100 WBC (Bld) 72.2 % 47-70 [facility] Potassium [Moles/Vol] 4.2 mmol/L 3.5-5.1 [facility] Sodium [Moles/Vol] 139 mmol/L 136-145 [facility] WBC (Bld) [#/Vol] 6.5 10*3/uL 4.4-11.0 [facility] Blood erythrocytes count (nu mber/volume)Ordered By: Daija Morton on 06-14-2023 RBC (Bld) [#/Vol] 4.73 10*6/uL 4.6-6.2 [facility] Blood hemoglobin measurement (mass/volume)Ordered By: Daija Morton on 06-14-2023 Hemoglobin (Bld) [Mass/Vol] 15.8 g/dL 13.0-16.5 [facility] Blood lymphocytes/100 leukoc ytesOrdered By: Daija Morton on 06-14-2023 Lymphocytes/100 WBC (Bld) 16.8 % 19-41 [facility] Blood monocytes/100 leukocyt esOrdered By: Daija Morton on 06-14-2023 Monocytes/100 WBC (Bld) 7.1 % 0-10 [facility] Blood platelet mean volumeOr dered By: Daija Morton on 06-14-2023 Platelet mean volume (Bld) [Entitic vol] 9.9 fL 6.2-12.0 [facility] Determination of erythrocyte mean corpuscular volume (MCV)Ordered By: Daija Morton on 06-14-2023 MCV (RBC) [Entitic vol] 96.6 fL 80-94 [facility] Hematocrit Auto (Bld) [Volum e fraction]Ordered By: Daija Morton on 06-14-2023 Hematocrit (Bld) [Volume fraction] 45.7 % 40-54 [facility] Laboratory - Chemistry and C hemistry - challengeOrdered By: Daija Morton on 06-14-2023 CO2 [Moles/Vol] 30.0 mmol/L 21.0-32.0 [facility] Urea nitrogen/Creatinine [Mass ratio] 16.1 mg/mg 10-20 [facility] Laboratory - Hematology and Cell countsOrdered By: Daija Morton on 06-14-2023 Erythrocyte distribution width (RBC) [Entitic vol] 46.5 fL 35.1-43.9 [facility] Erythrocyte distribution width (RBC) [Ratio] 13.1 % 11.6-14.6 [facility] Immature granulocytes/100 WBC (Bld) 0.500 % 0.0-0.9 [facility] Comment on above: IG% - Immature Granu locytes (promyelocytes, myelocytes and metamyelocytes) > 1% indicates that a LEFT SHIFT is Present. MCH (RBC) [Entitic mass] 33.4 pg 27.0-32.0 [facility] Nucleated RBC/100 WBC (Bld) [Ratio] 0 % 0-5 [facility] MCHC Auto (RBC) [Mass/Vol]Or dered By: Daija Morton on 06-14-2023 MCHC (RBC) [Mass/Vol] 34.6 g/dL 32-36 [facility] No Panel InformationOrdered By: Daija Morton on 06-14-2023 Estimated GFR (MDRD) Amer 73 mL/min >60 [facility] Comment on above: GFR Calc Estimated GFR (MDRD) Non-Af Amer 61 mL/min >60 [facility] Comment on above: Non- GFR Calc 33.4 pg 27.0-32.0 [facility] 13.1 % 11.6-14.6 [facility] 46.5 fl 35.1-43.9 [facility] 0.500 % 0.0-0.9 [facility] 0 % 0-5 [facility] 61 mL/min >60 [facility] 73 mL/min >60 [facility] 16.1 RATIO 10-20 [facility] 30.0 mmol/L 21.0-32.0 [facility] Platelets bldOrdered By: Nemesio Morton on 06-14-2023 Platelets (Bld) [#/Vol] 285 10*3/uL 150-450 [facility] Serum or plasma calcium luis urement (mass/volume)Ordered By: Daija Morton on 06-14-2023 Calcium [Mass/Vol] 9.8 mg/dL 8.5-10.1 [facility] Serum or plasma creatinine m easurement (mass/volume)Ordered By: Daija Morton on 06-14-2023 Creatinine [Mass/Vol] 1.24 mg/dL 0.70-1.30 [facility] Comment on above: The validity of the calculated GFR & GFRAA in patients over 70 years has not been determined. Clinical correlation is essential. Serum or plasma urea nitroge n measurement (mass/volume)Ordered By: Daija Morton on 06-14-2023 Urea nitrogen [Mass/Vol] 20 mg/dL 7-18 [facility] Thin prep Papanicolaou smear with manual screeningOrdered By: Daija Morton on 06-14-2023 Thin prep Papanicolaou smear with manual screening 5 5-15 [facility] Basophil percentageOrdered B y: Андрей Cooley on 05-19-2023 Basophil percentage 100 mg/dL 74-106 [facility] Basophil percentage 6.5 g/dL 6.4-8.2 [facility] Basophil percentage 0.30 mg/dL 0.20-1.00 [facility] Basophil percentage 141 mmol/L 136-145 [facility] Basophil percentage 3.6 mmol/L 3.5-5.1 [facility] Basophil percentage 109 mmol/L 98-107 [facility] Basophils (Bld) [#/Vol] 6.2 10*3/uL 4.4-11.0 [facility] Bilirubin [Mass/Vol] 0.30 mg/dL 0.20-1.00 [facility] Comment on above: For patients on eltr ombopag therapy, use of Dimension [place] TBIL is not recommended. Chloride [Moles/Vol] 109 mmol/L 98-107 [facility] Glucose [Mass/Vol] 100 mg/dL 74-106 [facility] Comment on above: Fasting Glucose resu lt from 100 to 125 mg/dL suggests IMPAIRED HOMEOSTASIS per A.D.A. criteria. Potassium [Moles/Vol] 3.6 mmol/L 3.5-5.1 [facility] Protein [Mass/Vol] 6.5 g/dL 6.4-8.2 [facility] Sodium [Moles/Vol] 141 mmol/L 136-145 [facility] WBC (Bld) [#/Vol] 6.2 10*3/uL 4.4-11.0 [facility] Blood erythrocytes count (nu mber/volume)Ordered By: Андрей Cooley on 05-19-2023 RBC (Bld) [#/Vol] 4.24 10*6/uL 4.6-6.2 [facility] Blood hemoglobin measurement (mass/volume)Ordered By: Андрей Cooley on 05-19-2023 Hemoglobin (Bld) [Mass/Vol] 13.8 g/dL 13.0-16.5 [facility] Blood platelet mean volumeOr dered By: Андрей Cooley on 05-19-2023 Platelet mean volume (Bld) [Entitic vol] 9.9 fL 6.2-12.0 [facility] Determination of erythrocyte mean corpuscular volume (MCV)Ordered By: Андрей Cooley on 05-19-2023 MCV (RBC) [Entitic vol] 99.5 fL 80-94 [facility] Hematocrit Auto (Bld) [Volum e fraction]Ordered By: Андрей Cooley on 05-19-2023 Hematocrit (Bld) [Volume fraction] 42.2 % 40-54 [facility] Laboratory - Chemistry and C hemistry - challengeOrdered By: Андрей Cooley on 05-19-2023 ALP [Catalytic activity/Vol] 72 U/L 45-117 [facility] ALT [Catalytic activity/Vol] 33 U/L 16- [facility] CO2 [Moles/Vol] 29.0 mmol/L 21.0-32.0 [facility] Globulin (S) [Mass/Vol] 3.1 g/dL 2.2-4.2 [facility] Urea nitrogen/Creatinine [Mass ratio] 18.6 mg/mg 10-20 [facility] Laboratory - Hematology and Cell countsOrdered By: Андрей Cooley on 05-19-2023 Erythrocyte distribution width (RBC) [Entitic vol] 52.4 fL 35.1-43.9 [facility] Erythrocyte distribution width (RBC) [Ratio] 14.3 % 11.6-14.6 [facility] MCH (RBC) [Entitic mass] 32.5 pg 27.0-32.0 [facility] MCHC Auto (RBC) [Mass/Vol]Or dered By: Андрей Cooley on 05-19-2023 MCHC (RBC) [Mass/Vol] 32.7 g/dL 32-36 [facility] No Panel InformationOrdered By: Андрей Cooley on 05-19-2023 Estimated GFR (MDRD) Amer 78 mL/min >60 [facility] Comment on above: GFR Calc Estimated GFR (MDRD) Non-Af Amer 64 mL/min >60 [facility] Comment on above: Non- GFR Calc 32.5 pg 27.0-32.0 [facility] 14.3 % 11.6-14.6 [facility] 52.4 fl 35.1-43.9 [facility] 64 mL/min >60 [facility] 78 mL/min >60 [facility] 18.6 RATIO 04-07 [facility] 3.1 g/dL 2.2-4.2 [facility] 72 U/L 45-117 [facility] 33 U/L 16- [facility] 29.0 mmol/L 21.0-32.0 [facility] Platelets bldOrdered By: Italia Cooley on 05-19-2023 Platelets (Bld) [#/Vol] 284 10*3/uL 150-450 [facility] Serum or plasma albumin luis urement (mass/volume)Ordered By: Андрей Cooley on 05-19-2023 Albumin [Mass/Vol] 3.4 g/dL 3.2-5.0 [facility] Serum or plasma albumin/glob ulin mass ratioOrdered By: Андрей Cooley on 05-19-2023 Albumin/Globulin [Mass ratio] 1.1 {ratio} 0.9-2.4 [facility] Serum or plasma calcium luis urement (mass/volume)Ordered By: Андрей Cooley on 05-19-2023 Calcium [Mass/Vol] 8.7 mg/dL 8.5-10.1 [facility] Serum or plasma creatinine m easurement (mass/volume)Ordered By: Андрей Cooley on 05-19-2023 Creatinine [Mass/Vol] 1.18 mg/dL 0.70-1.30 [facility] Comment on above: The validity of the calculated GFR & GFRAA in patients over 70 years has not been determined. Clinical correlation is essential. Serum or plasma urea nitroge n measurement (mass/volume)Ordered By: Андрей Cooley on 05-19-2023 Urea nitrogen [Mass/Vol] 22 mg/dL 7-18 [facility] Thin prep Papanicolaou smear with manual screeningOrdered By: Андрей Cooley on 05-19-2023 Thin prep Papanicolaou smear with manual screening 17 U/L 15-37 [facility] Thin prep Papanicolaou smear with manual screening 3 5-15 [facility] Basophil percentageOrdered B y: Андрей Cooley on 04-19-2023 Basophil percentage 92 mg/dL 74-106 [facility] Basophil percentage 6.8 g/dL 6.4-8.2 [facility] Basophil percentage 0.20 mg/dL 0.20-1.00 [facility] Basophil percentage 140 mmol/L 136-145 [facility] Basophil percentage 4.0 mmol/L 3.5-5.1 [facility] Basophil percentage 105 mmol/L 98-107 [facility] Basophils (Bld) [#/Vol] 6.2 10*3/uL 4.4-11.0 [facility] Bilirubin [Mass/Vol] 0.20 mg/dL 0.20-1.00 [facility] Comment on above: For patients on eltr ombopag therapy, use of Dimension [place] TBIL is not recommended. Chloride [Moles/Vol] 105 mmol/L 98-107 [facility] Glucose [Mass/Vol] 92 mg/dL 74-106 [facility] Potassium [Moles/Vol] 4.0 mmol/L 3.5-5.1 [facility] Protein [Mass/Vol] 6.8 g/dL 6.4-8.2 [facility] Sodium [Moles/Vol] 140 mmol/L 136-145 [facility] WBC (Bld) [#/Vol] 6.2 10*3/uL 4.4-11.0 [facility] Blood erythrocytes count (nu mber/volume)Ordered By: Андрей Cooley on 04-19-2023 RBC (Bld) [#/Vol] 4.26 10*6/uL 4.6-6.2 [facility] Blood hemoglobin measurement (mass/volume)Ordered By: Андрей Cooley on 04-19-2023 Hemoglobin (Bld) [Mass/Vol] 13.6 g/dL 13.0-16.5 [facility] Blood platelet mean volumeOr dered By: Андрей Cooley on 04-19-2023 Platelet mean volume (Bld) [Entitic vol] 9.7 fL 6.2-12.0 [facility] Determination of erythrocyte mean corpuscular volume (MCV)Ordered By: Андрей Cooley on 04-19-2023 MCV (RBC) [Entitic vol] 99.5 fL 80-94 [facility] Hematocrit Auto (Bld) [Volum e fraction]Ordered By: Андрей Cooley on 04-19-2023 Hematocrit (Bld) [Volume fraction] 42.4 % 40-54 [facility] Laboratory - Chemistry and C hemistry - challengeOrdered By: Андрей Cooley on 04-19-2023 ALP [Catalytic activity/Vol] 82 U/L 45-117 [facility] ALT [Catalytic activity/Vol] 27 U/L 16-61 [facility] CO2 [Moles/Vol] 29.0 mmol/L 21.0-32.0 [facility] Globulin (S) [Mass/Vol] 3.5 g/dL 2.2-4.2 [facility] Urea nitrogen/Creatinine [Mass ratio] 22.2 mg/mg 10-20 [facility] Laboratory - Hematology and Cell countsOrdered By: Андрей Cooley on 04-19-2023 Erythrocyte distribution width (RBC) [Entitic vol] 51.8 fL 35.1-43.9 [facility] Erythrocyte distribution width (RBC) [Ratio] 14.4 % 11.6-14.6 [facility] MCH (RBC) [Entitic mass] 31.9 pg 27.0-32.0 [facility] MCHC Auto (RBC) [Mass/Vol]Or dered By: Андрей Cooley on 04-19-2023 MCHC (RBC) [Mass/Vol] 32.1 g/dL 32-36 [facility] No Panel InformationOrdered By: Андрей Cooley on 04-19-2023 Estimated GFR (MDRD) Amer 86 mL/min >60 [facility] Comment on above: GFR Calc Estimated GFR (MDRD) Non-Af Amer 71 mL/min >60 [facility] Comment on above: Non- GFR Calc 31.9 pg 27.0-32.0 [facility] 14.4 % 11.6-14.6 [facility] 51.8 fl 35.1-43.9 [facility] 71 mL/min >60 [facility] 86 mL/min >60 [facility] 22.2 RATIO 10-20 [facility] 3.5 g/dL 2.2-4.2 [facility] 82 U/L 45-117 [facility] 27 U/L 16-61 [facility] 29.0 mmol/L 21.0-32.0 [facility] Platelets bldOrdered By: Italia Cooley on 04-19-2023 Platelets (Bld) [#/Vol] 382 10*3/uL 150-450 [facility] Serum or plasma albumin luis urement (mass/volume)Ordered By: Андрей Cooley on 04-19-2023 Albumin [Mass/Vol] 3.3 g/dL 3.2-5.0 [facility] Serum or plasma albumin/glob ulin mass ratioOrdered By: Андрей Cooley on 04-19-2023 Albumin/Globulin [Mass ratio] 0.9 {ratio} 0.9-2.4 [facility] Serum or plasma calcium luis urement (mass/volume)Ordered By: Андрей Cooley on 04-19-2023 Calcium [Mass/Vol] 9.1 mg/dL 8.5-10.1 [facility] Serum or plasma creatinine m easurement (mass/volume)Ordered By: Андрей Cooley on 04-19-2023 Creatinine [Mass/Vol] 1.08 mg/dL 0.70-1.30 [facility] Comment on above: The validity of the calculated GFR & GFRAA in patients over 70 years has not been determined. Clinical correlation is essential. Serum or plasma urea nitroge n measurement (mass/volume)Ordered By: Андрей Cooley on 04-19-2023 Urea nitrogen [Mass/Vol] 24 mg/dL 7-18 [facility] Thin prep Papanicolaou smear with manual screeningOrdered By: Андрей Cooley on 04-19-2023 Thin prep Papanicolaou smear with manual screening 19 U/L 15-37 [facility] Thin prep Papanicolaou smear with manual screening 6 5-15 [facility] Whole blood hemoglobin A1c/t otal hemoglobin ratio (mass fraction)Ordered By: Андрей Cooley on 04-17-2023 HbA1c (Bld) [Mass fraction] 5.2 % 3.8-5.6 [facility] Comment on above: Normal < 5.7 % Predi abetic 5.7 - 6.4 % Diabetic >or= 6.5 % Please note range changes. Basophil percentageOrdered B y: Андрей Cooley on 04-12-2023 Basophil percentage 92 mg/dL 74-106 [facility] Basophil percentage 6.4 g/dL 6.4-8.2 [facility] Basophil percentage 0.10 mg/dL 0.20-1.00 [facility] Basophil percentage 139 mmol/L 136-145 [facility] Basophil percentage 4.1 mmol/L 3.5-5.1 [facility] Basophil percentage 107 mmol/L 98-107 [facility] Basophils (Bld) [#/Vol] 7.8 10*3/uL 4.4-11.0 [facility] Bilirubin [Mass/Vol] 0.10 mg/dL 0.20-1.00 [facility] Comment on above: For patients on eltr ombopag therapy, use of Dimension [place] TBIL is not recommended. Chloride [Moles/Vol] 107 mmol/L 98-107 [facility] Glucose [Mass/Vol] 92 mg/dL 74-106 [facility] Potassium [Moles/Vol] 4.1 mmol/L 3.5-5.1 [facility] Protein [Mass/Vol] 6.4 g/dL 6.4-8.2 [facility] Sodium [Moles/Vol] 139 mmol/L 136-145 [facility] WBC (Bld) [#/Vol] 7.8 10*3/uL 4.4-11.0 [facility] Blood erythrocytes count (nu mber/volume)Ordered By: Андрей Cooley on 04-12-2023 RBC (Bld) [#/Vol] 4.04 10*6/uL 4.6-6.2 [facility] Blood hemoglobin measurement (mass/volume)Ordered By: Андрей Cooley on 04-12-2023 Hemoglobin (Bld) [Mass/Vol] 13.2 g/dL 13.0-16.5 [facility] Blood platelet mean volumeOr dered By: Андрей Cooley on 04-12-2023 Platelet mean volume (Bld) [Entitic vol] 9.7 fL 6.2-12.0 [facility] Determination of erythrocyte mean corpuscular volume (MCV)Ordered By: Андрей Cooley on 04-12-2023 MCV (RBC) [Entitic vol] 97.5 fL 80-94 [facility] Hematocrit Auto (Bld) [Volum e fraction]Ordered By: Андрей Cooley on 04-12-2023 Hematocrit (Bld) [Volume fraction] 39.4 % 40-54 [facility] Laboratory - Chemistry and C hemistry - challengeOrdered By: Андрей Cooley on 04-12-2023 ALP [Catalytic activity/Vol] 88 U/L 45-117 [facility] ALT [Catalytic activity/Vol] 32 U/L 16-61 [facility] CO2 [Moles/Vol] 26.0 mmol/L 21.0-32.0 [facility] Globulin (S) [Mass/Vol] 3.4 g/dL 2.2-4.2 [facility] Urea nitrogen/Creatinine [Mass ratio] 20.2 mg/mg - [facility] Laboratory - Hematology and Cell countsOrdered By: Андрей Cooley on 04-12-2023 Erythrocyte distribution width (RBC) [Entitic vol] 49.3 fL 35.1-43.9 [facility] Erythrocyte distribution width (RBC) [Ratio] 13.8 % 11.6-14.6 [facility] MCH (RBC) [Entitic mass] 32.7 pg 27.0-32.0 [facility] MCHC Auto (RBC) [Mass/Vol]Or dered By: Андрей Cooley on 04-12-2023 MCHC (RBC) [Mass/Vol] 33.5 g/dL 32-36 [facility] No Panel InformationOrdered By: Андрей Cooley on 04-12-2023 Estimated GFR (MDRD) Amer 77 mL/min >60 [facility] Comment on above: GFR Calc Estimated GFR (MDRD) Non-Af Amer 64 mL/min >60 [facility] Comment on above: Non- GFR Calc 32.7 pg 27.0-32.0 [facility] 13.8 % 11.6-14.6 [facility] 49.3 fl 35.1-43.9 [facility] 64 mL/min >60 [facility] 77 mL/min >60 [facility] 20.2 RATIO 04-07 [facility] 3.4 g/dL 2.2-4.2 [facility] 88 U/L 45-117 [facility] 32 U/L 16-61 [facility] 26.0 mmol/L 21.0-32.0 [facility] Platelets bldOrdered By: Italia Cooley on 04-12-2023 Platelets (Bld) [#/Vol] 385 10*3/uL 150-450 [facility] Serum or plasma albumin luis urement (mass/volume)Ordered By: Андрей Cooley on 04-12-2023 Albumin [Mass/Vol] 3.0 g/dL 3.2-5.0 [facility] Serum or plasma albumin/glob ulin mass ratioOrdered By: Андрей Cooley on 04-12-2023 Albumin/Globulin [Mass ratio] 0.9 {ratio} 0.9-2.4 [facility] Serum or plasma calcium luis urement (mass/volume)Ordered By: Андрей Cooley on 04-12-2023 Calcium [Mass/Vol] 8.7 mg/dL 8.5-10.1 [facility] Serum or plasma creatinine m easurement (mass/volume)Ordered By: Андрей Cooley on 04-12-2023 Creatinine [Mass/Vol] 1.19 mg/dL 0.70-1.30 [facility] Comment on above: The validity of the calculated GFR & GFRAA in patients over 70 years has not been determined. Clinical correlation is essential. Serum or plasma urea nitroge n measurement (mass/volume)Ordered By: Андрей Cooley on 04-12-2023 Urea nitrogen [Mass/Vol] 24 mg/dL 7-18 [facility] Thin prep Papanicolaou smear with manual screeningOrdered By: Андрей Cooley on 04-12-2023 Thin prep Papanicolaou smear with manual screening 21 U/L 15-37 [facility] Thin prep Papanicolaou smear with manual screening 6 5-15 [facility] Basophil percentageOrdered B y: Андрей Cooley on 04-05-2023 Basophil percentage 105 mg/dL 74-106 [facility] Basophil percentage 6.7 g/dL 6.4-8.2 [facility] Basophil percentage 0.20 mg/dL 0.20-1.00 [facility] Basophil percentage 139 mmol/L 136-145 [facility] Basophil percentage 3.9 mmol/L 3.5-5.1 [facility] Basophil percentage 105 mmol/L 98-107 [facility] Basophils (Bld) [#/Vol] 5.8 10*3/uL 4.4-11.0 [facility] Bilirubin [Mass/Vol] 0.20 mg/dL 0.20-1.00 [facility] Comment on above: For patients on eltr ombopag therapy, use of Dimension [place] TBIL is not recommended. Chloride [Moles/Vol] 105 mmol/L 98-107 [facility] Glucose [Mass/Vol] 105 mg/dL 74-106 [facility] Comment on above: Fasting Glucose resu lt from 100 to 125 mg/dL suggests IMPAIRED HOMEOSTASIS per A.D.A. criteria. Potassium [Moles/Vol] 3.9 mmol/L 3.5-5.1 [facility] Protein [Mass/Vol] 6.7 g/dL 6.4-8.2 [facility] Sodium [Moles/Vol] 139 mmol/L 136-145 [facility] WBC (Bld) [#/Vol] 5.8 10*3/uL 4.4-11.0 [facility] Blood erythrocytes count (nu mber/volume)Ordered By: Андрей Cooley on 04-05-2023 RBC (Bld) [#/Vol] 4.40 10*6/uL 4.6-6.2 [facility] Blood hemoglobin measurement (mass/volume)Ordered By: Андрей Cooley on 04-05-2023 Hemoglobin (Bld) [Mass/Vol] 13.9 g/dL 13.0-16.5 [facility] Blood platelet mean volumeOr dered By: Андрей Cooley on 04-05-2023 Platelet mean volume (Bld) [Entitic vol] 9.5 fL 6.2-12.0 [facility] Determination of erythrocyte mean corpuscular volume (MCV)Ordered By: Андрей Cooley on 04-05-2023 MCV (RBC) [Entitic vol] 96.8 fL 80-94 [facility] Hematocrit Auto (Bld) [Volum e fraction]Ordered By: Андрей Cooley on 04-05-2023 Hematocrit (Bld) [Volume fraction] 42.6 % 40-54 [facility] Laboratory - Chemistry and C hemistry - challengeOrdered By: Андрей Cooley on 04-05-2023 ALP [Catalytic activity/Vol] 60 U/L 45-117 [facility] ALT [Catalytic activity/Vol] 54 U/L 16-61 [facility] CO2 [Moles/Vol] 28.0 mmol/L 21.0-32.0 [facility] Globulin (S) [Mass/Vol] 3.8 g/dL 2.2-4.2 [facility] Urea nitrogen/Creatinine [Mass ratio] 22.0 mg/mg 10- [facility] Laboratory - Hematology and Cell countsOrdered By: Андрей Cooley on 04-05-2023 Erythrocyte distribution width (RBC) [Entitic vol] 50.1 fL 35.1-43.9 [facility] Erythrocyte distribution width (RBC) [Ratio] 14.0 % 11.6-14.6 [facility] MCH (RBC) [Entitic mass] 31.6 pg 27.0-32.0 [facility] MCHC Auto (RBC) [Mass/Vol]Or dered By: Андрей Cooley on 04-05-2023 MCHC (RBC) [Mass/Vol] 32.6 g/dL 32-36 [facility] No Panel InformationOrdered By: Андрей Cooley on 04-05-2023 Estimated GFR (MDRD) Amer 85 mL/min >60 [facility] Comment on above: GFR Calc Estimated GFR (MDRD) Non-Af Amer 70 mL/min >60 [facility] Comment on above: Non- GFR Calc 31.6 pg 27.0-32.0 [facility] 14.0 % 11.6-14.6 [facility] 50.1 fl 35.1-43.9 [facility] 70 mL/min >60 [facility] 85 mL/min >60 [facility] 22.0 RATIO 04-07 [facility] 3.8 g/dL 2.2-4.2 [facility] 60 U/L 45-117 [facility] 54 U/L 16-61 [facility] 28.0 mmol/L 21.0-32.0 [facility] Platelets bldOrdered By: Italia Cooley on 04-05-2023 Platelets (Bld) [#/Vol] 399 10*3/uL 150-450 [facility] Serum or plasma albumin luis urement (mass/volume)Ordered By: Андрей Cooley on 04-05-2023 Albumin [Mass/Vol] 2.9 g/dL 3.2-5.0 [facility] Serum or plasma albumin/glob ulin mass ratioOrdered By: Андрей Cooley on 04-05-2023 Albumin/Globulin [Mass ratio] 0.8 {ratio} 0.9-2.4 [facility] Serum or plasma calcium luis urement (mass/volume)Ordered By: Андрей Cooley on 04-05-2023 Calcium [Mass/Vol] 9.3 mg/dL 8.5-10.1 [facility] Serum or plasma creatinine m easurement (mass/volume)Ordered By: Андрей Cooley on 04-05-2023 Creatinine [Mass/Vol] 1.09 mg/dL 0.70-1.30 [facility] Comment on above: The validity of the calculated GFR & GFRAA in patients over 70 years has not been determined. Clinical correlation is essential. Serum or plasma urea nitroge n measurement (mass/volume)Ordered By: Андрей Cooley on 04-05-2023 Urea nitrogen [Mass/Vol] 24 mg/dL 7-18 [facility] Thin prep Papanicolaou smear with manual screeningOrdered By: Андрей Cooley on 04-05-2023 Thin prep Papanicolaou smear with manual screening 38 U/L 15-37 [facility] Thin prep Papanicolaou smear with manual screening 6 5-15 [facility] Absolute lymphocyte countOrd ered By: Frankie Galindo on 04-04-2023 Lymphocytes Auto (Unsp spec) [#/Vol] 1.49 10*3/uL 0.83-4.51 [facility] Basophil percentageOrdered B y: Frankie Galindo on 04-04-2023 Basophil percentage 101 mg/dL 74-106 [facility] Basophil percentage 136 mmol/L 136-145 [facility] Basophil percentage 3.9 mmol/L 3.5-5.1 [facility] Basophil percentage 103 mmol/L 98-107 [facility] Basophils (Bld) [#/Vol] 6.3 10*3/uL 4.4-11.0 [facility] Basophils (Bld) [#/Vol] 4.1 10*3/uL 2.0-7.7 [facility] Basophils/100 WBC (Bld) 1.1 % 0-1 [facility] Basophils/100 WBC (Bld) 64.4 % 47-70 [facility] Basophils/100 WBC (Bld) 3.3 % 0-5 [facility] Chloride [Moles/Vol] 103 mmol/L 98-107 [facility] Eosinophils/100 WBC (Bld) 3.3 % 0-5 [facility] Glucose [Mass/Vol] 101 mg/dL 74-106 [facility] Comment on above: Fasting Glucose resu lt from 100 to 125 mg/dL suggests IMPAIRED HOMEOSTASIS per A.D.A. criteria. Neutrophils (Bld) [#/Vol] 4.1 10*3/uL 2.0-7.7 [facility] Neutrophils/100 WBC (Bld) 64.4 % 47-70 [facility] Potassium [Moles/Vol] 3.9 mmol/L 3.5-5.1 [facility] Sodium [Moles/Vol] 136 mmol/L 136-145 [facility] WBC (Bld) [#/Vol] 6.3 10*3/uL 4.4-11.0 [facility] Blood erythrocytes count (nu mber/volume)Ordered By: Frankie Galindo on 04-04-2023 RBC (Bld) [#/Vol] 4.82 10*6/uL 4.6-6.2 [facility] Blood hemoglobin measurement (mass/volume)Ordered By: Frankie Galindo on 04-04-2023 Hemoglobin (Bld) [Mass/Vol] 15.1 g/dL 13.0-16.5 [facility] Blood lymphocytes/100 leukoc ytesOrdered By: Frankie Galindo on 04-04-2023 Lymphocytes/100 WBC (Bld) 23.6 % 19-41 [facility] Blood monocytes/100 leukocyt esOrdered By: Frankie Galindo on 04-04-2023 Monocytes/100 WBC (Bld) 6.3 % 0-10 [facility] Blood platelet mean volumeOr dered By: Frankie Galindo on 04-04-2023 Platelet mean volume (Bld) [Entitic vol] 9.3 fL 6.2-12.0 [facility] Determination of erythrocyte mean corpuscular volume (MCV)Ordered By: Frankie Galindo on 04-04-2023 MCV (RBC) [Entitic vol] 96.7 fL 80-94 [facility] Hematocrit Auto (Bld) [Volum e fraction]Ordered By: Frankie Galindo on 04-04-2023 Hematocrit (Bld) [Volume fraction] 46.6 % 40-54 [facility] Laboratory - Chemistry and C hemistry - challengeOrdered By: Frankie Galindo on 04-04-2023 CO2 [Moles/Vol] 29.0 mmol/L 21.0-32.0 [facility] Urea nitrogen/Creatinine [Mass ratio] 20.3 mg/mg 10-20 [facility] Laboratory - Hematology and Cell countsOrdered By: Frankie Galindo on 04-04-2023 Erythrocyte distribution width (RBC) [Entitic vol] 48.9 fL 35.1-43.9 [facility] Erythrocyte distribution width (RBC) [Ratio] 13.6 % 11.6-14.6 [facility] Immature granulocytes/100 WBC (Bld) 1.300 % 0.0-0.9 [facility] Comment on above: IG% - Immature Granu locytes (promyelocytes, myelocytes and metamyelocytes) > 1% indicates that a LEFT SHIFT is Present. MCH (RBC) [Entitic mass] 31.3 pg 27.0-32.0 [facility] Nucleated RBC/100 WBC (Bld) [Ratio] 0 % 0-5 [facility] MCHC Auto (RBC) [Mass/Vol]Or dered By: Frankie Galindo on 04-04-2023 MCHC (RBC) [Mass/Vol] 32.4 g/dL 32-36 [facility] No Panel InformationOrdered By: Frankie Galindo on 04-04-2023 Estimated Creatinine Clearance Calc 45.80 ml/min [facility] Estimated GFR (MDRD) Amer 71 mL/min >60 [facility] Comment on above: GFR Calc Estimated GFR (MDRD) Non-Af Amer 58 mL/min >60 [facility] Comment on above: Non- GFR Calc 31.3 pg 27.0-32.0 [facility] 13.6 % 11.6-14.6 [facility] 48.9 fl 35.1-43.9 [facility] 1.300 % 0.0-0.9 [facility] 0 % 0-5 [facility] 58 mL/min >60 [facility] 71 mL/min >60 [facility] 45.80 ml/min [facility] 20.3 RATIO 04-07 [facility] 29.0 mmol/L 21.0-32.0 [facility] Platelets bldOrdered By: Sebastien Galindo on 04-04-2023 Platelets (Bld) [#/Vol] 379 10*3/uL 150-450 [facility] Serum or plasma calcium luis urement (mass/volume)Ordered By: Frankie Galindo on 04-04-2023 Calcium [Mass/Vol] 9.7 mg/dL 8.5-10.1 [facility] Serum or plasma creatinine m easurement (mass/volume)Ordered By: Frankie Galindo on 04-04-2023 Creatinine [Mass/Vol] 1.28 mg/dL 0.70-1.30 [facility] Comment on above: The validity of the calculated GFR & GFRAA in patients over 70 years has not been determined. Clinical correlation is essential. Serum or plasma urea nitroge n measurement (mass/volume)Ordered By: Frankie Galindo on 04-04-2023 Urea nitrogen [Mass/Vol] 26 mg/dL 01-03 [facility] Thin prep Papanicolaou smear with manual screeningOrdered By: Frankie Galindo on 04-04-2023 Thin prep Papanicolaou smear with manual screening 4 10-31 [facility] Basophil percentageOrdered B y: Frankie Galindo on 04-02-2023 Basophil percentage 2.6 mg/dL 2.5-4.9 [facility] Laboratory - Chemistry and C hemistry - challengeOrdered By: Frankie Galindo on 04-02-2023 Magnesium [Mass/Vol] 2.0 mg/dL 1.6-2.6 [facility] No Panel InformationOrdered By: Frankie Galindo on 04-02-2023 2.0 mg/dL 1.6-2.6 [facility] Basophil percentageOrdered B y: Celia Toribio on 04-01-2023 Basophil percentage 6.5 g/dL 6.4-8.2 [facility] Basophil percentage 0.30 mg/dL 0.20-1.00 [facility] Bilirubin [Mass/Vol] 0.30 mg/dL 0.20-1.00 [facility] Comment on above: For patients on eltr ombopag therapy, use of Dimension [place] TBIL is not recommended. Protein [Mass/Vol] 6.5 g/dL 6.4-8.2 [facility] Laboratory - Chemistry and C hemistry - challengeOrdered By: Celia Toribio on 04-01-2023 ALP [Catalytic activity/Vol] 57 U/L 45-117 [facility] ALT [Catalytic activity/Vol] 21 U/L [facility] Globulin (S) [Mass/Vol] 3.9 g/dL 2.2-4.2 [facility] No Panel InformationOrdered By: Celia Toribio on 04-01-2023 3.9 g/dL 2.2-4.2 [facility] 57 U/L 45- [facility] 21 U/L [facility] Serum or plasma albumin luis urement (mass/volume)Ordered By: Celia Toribio on 04-01-2023 Albumin [Mass/Vol] 2.6 g/dL 3.2-5.0 [facility] Serum or plasma albumin/glob ulin mass ratioOrdered By: Celia Toribio on 04-01-2023 Albumin/Globulin [Mass ratio] 0.7 {ratio} 0.9-2.4 [facility] Thin prep Papanicolaou smear with manual screeningOrdered By: Celia Toribio on 04-01-2023 Thin prep Papanicolaou smear with manual screening 12 U/L 15-37 [facility] Absolute lymphocyte countOrd ered By: Huber Alvarado on 03-30-2023 Lymphocytes Auto (Unsp spec) [#/Vol] 0.93 10*3/uL 0.83-4.51 [facility] Bacteria identified Cx Nom ( U)Ordered By: Huber Alvarado on 03-30-2023 Culture, urine ESBL Escherichia coli [facility] Basophil percentageOrdered B y: Huber Alvarado on 03-30-2023 Basophil percentage 1.4 mmol/L 0.4-2.0 [facility] Lactate [Moles/Vol] 1.4 mmol/L 0.4-2.0 [facility] Basophil percentage 25-50 SEEN /hpf 0-5 [facility] Basophils/100 WBC (Bld) 0.7 % 0-1 [facility] Chloride [Moles/Vol] 99 mmol/L 98-107 [facility] Eosinophils/100 WBC (Bld) 0.0 % 0-5 [facility] Glucose [Mass/Vol] 104 mg/dL 74-106 [facility] Comment on above: Fasting Glucose resu lt from 100 to 125 mg/dL suggests IMPAIRED HOMEOSTASIS per A.D.A. criteria. Neutrophils (Bld) [#/Vol] 7.9 10*3/uL 2.0-7.7 [facility] Neutrophils/100 WBC (Bld) 79.2 % 47-70 [facility] Potassium [Moles/Vol] 4.0 mmol/L 3.5-5.1 [facility] Sodium [Moles/Vol] 134 mmol/L 136-145 [facility] WBC (Bld) [#/Vol] 10.0 10*3/uL 4.4-11.0 [facility] Bilirubin Test strip Ql (U)O rdered By: Huber Alvarado on 03-30-2023 Bilirubin Ql (U) Negative Negative [facility] Blood erythrocytes count (nu mber/volume)Ordered By: Huber Alvarado on 03-30-2023 RBC (Bld) [#/Vol] 4.81 10*6/uL 4.6-6.2 [facility] Blood hemoglobin measurement (mass/volume)Ordered By: Huber Alvarado on 03-30-2023 Hemoglobin (Bld) [Mass/Vol] 15.4 g/dL 13.0-16.5 [facility] Blood lymphocytes/100 leukoc ytesOrdered By: Huber Alvarado on 03-30-2023 Lymphocytes/100 WBC (Bld) 9.3 % 19-41 [facility] Blood monocytes/100 leukocyt esOrdered By: Huber Alvarado on 03-30-2023 Monocytes/100 WBC (Bld) 10.5 % 0-10 [facility] Blood platelet mean volumeOr dered By: Huber Alvarado on 03-30-2023 Platelet mean volume (Bld) [Entitic vol] 9.8 fL 6.2-12.0 [facility] Culture, urineOrdered By: Baldo Chan on 03-30-2023 Bacteria identified Cx Nom (U) ESBL Escherichia coli [facility] Bacteria identified Cx Nom (U) ESBL Escherichia coli [facility] Determination of erythrocyte mean corpuscular volume (MCV)Ordered By: Huber Alvarado on 03-30-2023 MCV (RBC) [Entitic vol] 97.5 fL 80-94 [facility] Hematocrit Auto (Bld) [Volum e fraction]Ordered By: Huber Alvarado on 03-30-2023 Hematocrit (Bld) [Volume fraction] 46.9 % 40-54 [facility] Ketones Test strip Ql (U)Ord ered By: Huber Alvarado on 03-30-2023 Ketones Ql (U) Negative Negative [facility] Laboratory - Chemistry and C hemistry - challengeOrdered By: Huber Alvarado on 03-30-2023 CO2 [Moles/Vol] 31.0 mmol/L 21.0-32.0 [facility] Urea nitrogen/Creatinine [Mass ratio] 16.0 mg/mg 10-20 [facility] Laboratory - Hematology and Cell countsOrdered By: Huber Alvarado on 03-30-2023 Erythrocyte distribution width (RBC) [Entitic vol] 50.3 fL 35.1-43.9 [facility] Erythrocyte distribution width (RBC) [Ratio] 13.9 % 11.6-14.6 [facility] Immature granulocytes/100 WBC (Bld) 0.300 % 0.0-0.9 [facility] Comment on above: IG% - Immature Granu locytes (promyelocytes, myelocytes and metamyelocytes) > 1% indicates that a LEFT SHIFT is Present. MCH (RBC) [Entitic mass] 32.0 pg 27.0-32.0 [facility] Nucleated RBC/100 WBC (Bld) [Ratio] 0 % 0-5 [facility] Laboratory - Microbiology an d Antimicrobial susceptibilityOrdered By: Huber Alvarado on 03-30-2023 Bacteria identified Cx Nom (Bld) No growth in 5 days. [facility] MCHC Auto (RBC) [Mass/Vol]Or dered By: Huber Alvarado on 03-30-2023 MCHC (RBC) [Mass/Vol] 32.8 g/dL 32-36 [facility] Mucus LM Ql (Urine sed)Order ed By: Huber Alvarado on 10-12-2023 Mucus Ql (Urine sed) 0 SEEN /hpf [facility] Nitrite Test strip Ql (U)Ord ered By: Huber Alvarado on 03-30-2023 Nitrite Ql (U) Negative Negative [facility] No Panel InformationOrdered By: Huber Alvarado on 03-30-2023 No growth in 5 days. [facility] Estimated GFR (MDRD) Amer 77 mL/min >60 [facility] Comment on above: GFR Calc Estimated GFR (MDRD) Non-Af Amer 64 mL/min >60 [facility] Comment on above: Non- GFR Calc Platelets bldOrdered By: Pet er Christiano on 03-30-2023 Platelets (Bld) [#/Vol] 276 10*3/uL 150-450 [facility] Protein Test strip Ql (U)Ord ered By: Huber Alvarado on 03-30-2023 Protein Ql (U) 100 mg/dl Negative [facility] Serum or plasma calcium luis urement (mass/volume)Ordered By: Huber Alvarado on 03-30-2023 Calcium [Mass/Vol] 9.8 mg/dL 8.5-10.1 [facility] Serum or plasma creatinine m easurement (mass/volume)Ordered By: Huber Alvarado on 03-30-2023 Creatinine [Mass/Vol] 1.19 mg/dL 0.70-1.30 [facility] Comment on above: The validity of the calculated GFR & GFRAA in patients over 70 years has not been determined. Clinical correlation is essential. Serum or plasma urea nitroge n measurement (mass/volume)Ordered By: Huber Alvarado on 03-30-2023 Urea nitrogen [Mass/Vol] 19 mg/dL 7-18 [facility] Squamous epithelial cells de tection in urine sediment by light microscopyOrdered By: Huber Alvarado on 03-30-2023 Epithelial cells.squamous LM Ql (Urine sed) 0-5 SEEN /hpf 0-5 [facility] Thin prep Papanicolaou smear with manual screeningOrdered By: Huber Alvarado on 03-30-2023 Thin prep Papanicolaou smear with manual screening 4 5-15 [facility] Urine blood detectionOrdered By: Huber Alvarado on 03-30-2023 RBC Ql (U) 50 /ul Negative [facility] RBC Ql (U) 0 SEEN /hpf 0-5 [facility] Urine clarityOrdered By: Beck Alvarado on 03-30-2023 Clarity (U) Sl. Cloudy Clear [facility] Urine color determinationOrd ered By: Huber Alvarado on 03-30-2023 Color (U) Yellow Yellow [facility] Urine glucose detectionOrder ed By: Huber Alvarado on 03-30-2023 Glucose Ql (U) Normal mg/dl Normal [facility] Urine leukocyte esterase det ection by dipstickOrdered By: Huber Alvarado on 03-30-2023 Leukocyte esterase Test strip Ql (U) 500 /ul Negative [facility] Urine pHOrdered By: Huber billingsley on 03-30-2023 pH (U) 6.0 [pH] 5.0 - 8.0 [facility] Urine sediment bacteria coun t by microscopy (number/high power field)Ordered By: Huber Alvarado on 03-30-2023 Bacteria LM.HPF (Urine sed) [#/Area] 3 /[HPF] None Seen [facility] Urine specific gravity measu rementOrdered By: Huber Alvarado on 03-30-2023 Specific gravity (U) [Rel density] 1.020 1.002-1.030 [facility] Urobilinogen Auto test strip Ql (U)Ordered By: Huber Alvarado on 03-30-2023 Urobilinogen Ql (U) Normal mg/dl Normal [facility] INR in Blood by Coagulation assayOrdered By: Jaden Jauregui on 02-18-2023 INR Coag (Bld) [Relative time] 0.9 {INR} [facility] Laboratory - CoagulationOrde red By: Jaden Jauregui on 02-18-2023 PT Coag (PPP) [Time] 12.4 s 11.7-14.[address] [facility] [address] ABD/PELVIS W/ IV CONTRAST ONLYon [...] 10/22/2022 10:33:36 PM Ordering Provider: PRIYANKA Betts [facility] ([place]) .Auto Diffon 10-22-2022 Basophil, Absolute 0.1 10 3/mcL Normal 0.0-0.2 [facility] ([place]) Comment on above: Performed By: #### A DIFF, LIP, MDW, CMP, GFR, ANEU, CBC #### [address] [address] Basophils/100 WBC (Bld) 0.8 % Normal 0.0-2.5 A [facility] ([place]) Comment on above: Performed By: #### A DIFF, LIP, MDW, CMP, GFR, ANEU, CBC #### [address] [address] Eosinophil, Absolute 0.0 10 3/mcL Normal 0.0-0.4 [facility] ([place]) Comment on above: Performed By: #### A DIFF, LIP, MDW, CMP, GFR, ANEU, CBC #### [address] [address] Eosinophils/100 WBC (Bld) 0.3 % Normal 0.0-7.0 [facility] ([place]) Comment on above: Performed By: #### A DIFF, LIP, MDW, CMP, GFR, ANEU, CBC #### [address] [address] Lymphocyte, Absolute 0.9 10 3/mcL Normal 0.8-3.9 [facility] ([place]) Comment on above: Performed By: #### A DIFF, LIP, MDW, CMP, GFR, ANEU, CBC #### [address] [address] Lymphocytes/100 WBC (Bld) 8.1 % Low 10.0-50.0 [facility] ([place]) Comment on above: Performed By: #### A DIFF, LIP, MDW, CMP, GFR, ANEU, CBC #### [address] [address] Monocyte, Absolute 0.7 10 3/mcL Normal 0.2-1.0 [facility] ([place]) Comment on above: Performed By: #### A DIFF, LIP, MDW, CMP, GFR, ANEU, CBC #### [address] [address] Monocytes/100 WBC (Bld) 6.8 % Normal 1.7-13.0 A [facility] ([place]) Comment on above: Performed By: #### A DIFF, LIP, MDW, CMP, GFR, ANEU, CBC #### [address] [address] Neutrophils/100 WBC (Bld) 84.0 % High 37.0-80.0 [facility] ([place]) Comment on above: Performed By: #### A DIFF, LIP, MDW, CMP, GFR, ANEU, CBC #### [address] [address] .GFRon 10-22-2022 GFR Non- 58 ml/min/1.73sqm Normal [facility] ([place]) Comment on above: Result Comment: GFR Population [...] LIP, MDW, CMP, GFR, ANEU, CBC #### [address] [address] GFR 71 ml/min/1.73sqm Normal [facility] ([place]) Comment on above: Result Comment: GFR Population [...] LIP, MDW, CMP, GFR, ANEU, CBC #### [place] [address] .MDWon 10-22-2022 Monocyte Distribution Width 24.33 High 0.00-20.00 [facility] ([place]) Comment on above: Result Comment: For adults in ED, MDW>20.0 may be associated with a higher risk of sepsis during the first 12hrs of hospital admission Performed By: #### A DIFF, LIP, MDW, CMP, GFR, ANEU, CBC #### [place] [address] .NEUABSon 10-22-2022 Neutrophil, Absolute 8.9 10 3/mcL High 2.9-6.2 [facility] ([place]) Comment on above: Performed By: #### A DIFF, LIP, MDW, CMP, GFR, ANEU, CBC #### [place] [address] CBCon 10-22-2022 Erythrocyte distribution width (RBC) [Ratio] 14.0 % Normal 11.5-14.5 [facility] ([place]) Comment on above: Performed By: #### A DIFF, LIP, MDW, CMP, GFR, ANEU, CBC #### [place] [address] Hematocrit (Bld) [Volume fraction] 38.9 % Low 42.0-52.0 [facility] ([place]) Comment on above: Performed By: #### A DIFF, LIP, MDW, CMP, GFR, ANEU, CBC #### [place] [address] Hgb 13.5 G/dL Low 14.0-18.0 [facility] ([place]) Comment on above: Performed By: #### A DIFF, LIP, MDW, CMP, GFR, ANEU, CBC #### [address] [address] MCH (RBC) [Entitic mass] 33.0 pg High 27.0-31.2 [facility] ([place]) Comment on above: Performed By: #### A DIFF, LIP, MDW, CMP, GFR, ANEU, CBC #### [place] [address] MCHC 34.8 G/dL Normal 31.8-35.4 [facility] ([place]) Comment on above: Performed By: #### A DIFF, LIP, MDW, CMP, GFR, ANEU, CBC #### [address] [address] MCV (RBC) [Entitic vol] 95.0 fL High 80.0-94.0 A [facility] ([place]) Comment on above: Performed By: #### A DIFF, LIP, MDW, CMP, GFR, ANEU, CBC #### [address] [address] Platelet 344 10 3/mcL Normal 130-400 [facility] ([place]) Comment on above: Performed By: #### A DIFF, LIP, MDW, CMP, GFR, ANEU, CBC #### [address] [address] Platelet mean volume (Bld) [Entitic vol] 7.1 fL Low 7.4-10.4 [facility] ([place]) Comment on above: Performed By: #### A DIFF, LIP, MDW, CMP, GFR, ANEU, CBC #### [address] [address] RBC 4.10 10 6/mcL Normal 4.04-6.13 [facility] ([place]) Comment on above: Performed By: #### A DIFF, LIP, MDW, CMP, GFR, ANEU, CBC #### [address] [address] WBC 10.6 10 3/mcL Normal 4.6-10.8 [facility] ([place]) Comment on above: Performed By: #### A DIFF, LIP, MDW, CMP, GFR, ANEU, CBC #### [address] [address] CMPon 10-22-2022 Albumin Level 2.9 G/dL Low 3.4-4.8 [facility] ([place]) Comment on above: Performed By: #### A DIFF, LIP, MDW, CMP, GFR, ANEU, CBC #### [address] [address] Albumin/Globulin [Mass ratio] 0.8 {ratio} Low 1.1-2.5 [facility] ([place]) Comment on above: Performed By: #### A DIFF, LIP, MDW, CMP, GFR, ANEU, CBC #### [address] [address] ALP [Catalytic activity/Vol] 98 U/L Normal 40-135 [facility] ([place]) Comment on above: Performed By: #### A DIFF, LIP, MDW, CMP, GFR, ANEU, CBC #### [address] [address] ALT [Catalytic activity/Vol] 46 U/L Normal 16-63 [facility] ([place]) Comment on above: Performed By: #### A DIFF, LIP, MDW, CMP, GFR, ANEU, CBC #### [address] [address] AST [Catalytic activity/Vol] 29 U/L Normal 10-40 [facility] ([place]) Comment on above: Performed By: #### A DIFF, LIP, MDW, CMP, GFR, ANEU, CBC #### [address] [address] Bili Total 0.3 mg/dL Normal 0.2-1.0 [facility] ([place]) Comment on above: Result Comment: Use of this assay is not recommended for patients undergoing treatment with eltrombopag due to the potential for falsely elevated results. Performed By: #### A DIFF, LIP, MDW, CMP, GFR, ANEU, CBC #### [address] [address] BUN/Creatinine Ratio 17 ratio Normal 7-27 [facility] ([place]) Comment on above: Performed By: #### A DIFF, LIP, MDW, CMP, GFR, ANEU, CBC #### [address] [address] Calcium [Mass/Vol] 9.2 mg/dL Normal 8.4-10.2 [facility] ([place]) Comment on above: Performed By: #### A DIFF, LIP, MDW, CMP, GFR, ANEU, CBC #### [address] [address] Chloride [Moles/Vol] 96 mmol/L Low 98-107 [facility] ([place]) Comment on above: Performed By: #### A DIFF, LIP, MDW, CMP, GFR, ANEU, CBC #### [address] [address] CO2 [Moles/Vol] 33 mmol/L High 23-31 [facility] ([place]) Comment on above: Performed By: #### A DIFF, LIP, MDW, CMP, GFR, ANEU, CBC #### [address] [address] Creatinine [Mass/Vol] 1.22 mg/dL Normal 0.70-1.30 [facility] ([place]) Comment on above: Performed By: #### A DIFF, LIP, MDW, CMP, GFR, ANEU, CBC #### [address] [address] Electrolyte Balance 5.0 mEq/L Normal 4.0-15.0 [facility] ([place]) Comment on above: Performed By: #### A DIFF, LIP, MDW, CMP, GFR, ANEU, CBC #### [address] [address] Globulin 3.5 G/dL Normal [facility] ([place]) Comment on above: Performed By: #### A DIFF, LIP, MDW, CMP, GFR, ANEU, CBC #### [address] [address] Glucose [Mass/Vol] 111 mg/dL High 83-110 [facility] ([place]) Comment on above: Performed By: #### A DIFF, LIP, MDW, CMP, GFR, ANEU, CBC #### [address] [address] Potassium [Moles/Vol] 4.3 mmol/L Normal 3.5-5.1 [facility] ([place]) Comment on above: Performed By: #### A DIFF, LIP, MDW, CMP, GFR, ANEU, CBC #### [address] [address] Sodium [Moles/Vol] 134 mmol/L Low 136-145 [facility] ([place]) Comment on above: Performed By: #### A DIFF, LIP, MDW, CMP, GFR, ANEU, CBC #### [address] [address] Total Protein 6.4 G/dL Normal 6.4-8.2 [facility] ([place]) Comment on above: Performed By: #### A DIFF, LIP, MDW, CMP, GFR, ANEU, CBC #### [address] [address] Urea nitrogen [Mass/Vol] 21 mg/dL High 7-18 [facility] ([place]) Comment on above: Performed By: #### A DIFF, LIP, MDW, CMP, GFR, ANEU, CBC #### [address] [address] LABORATORYOrdered By: SYSTEM SYSTEM on 10-22-2022 Albumin [...] 10-22-2022 Lipase Level 32 U/L Normal 16-77 [facility] ([place]) Comment on above: Performed By: #### A DIFF, LIP, MDW, CMP, GFR, ANEU, CBC #### [place] [address] [place], [place] [address] Absolute lymphocyte countOrd ered By: Dr. Jauregui on 10-21-2022 Lymphocytes Auto (Unsp spec) [#/Vol] 0.85 10*3/uL 0.83-4.51 [facility] Basophil percentageOrdered B y: Dr. Jauregui on 10-21-2022 Basophil percentage 25-50 SEEN /hpf 0-5 [facility] Basophils/100 WBC (Bld) 0.6 % 0-1 [facility] Bilirubin [Mass/Vol] 0.30 mg/dL 0.20-1.00 [facility] Comment on above: For patients on eltr ombopag therapy, use of Dimension [place] TBIL is not recommended. Chloride [Moles/Vol] 99 mmol/L 98-107 [facility] Eosinophils/100 WBC (Bld) 0.4 % 0-5 [facility] Glucose [Mass/Vol] 104 mg/dL 74-106 [facility] Comment on above: Fasting Glucose resu lt from 100 to 125 mg/dL suggests IMPAIRED HOMEOSTASIS per A.D.A. criteria. Neutrophils (Bld) [#/Vol] 8.8 10*3/uL 2.0-7.7 [facility] Neutrophils/100 WBC (Bld) 84.2 % 47-70 [facility] Potassium [Moles/Vol] 3.6 mmol/L 3.5-5.1 [facility] Protein [Mass/Vol] 7.2 g/dL 6.4-8.2 [facility] Sodium [Moles/Vol] 135 mmol/L 136-145 [facility] WBC (Bld) [#/Vol] 10.4 10*3/uL 4.4-11.0 [facility] Bilirubin Test strip Ql (U)O rdered By: Dr. Jauregui on 10-21-2022 Bilirubin Ql (U) Negative Negative [facility] Blood erythrocytes count (nu mber/volume)Ordered By: Dr. Jauregui on 10-21-2022 RBC (Bld) [#/Vol] 4.51 10*6/uL 4.6-6.2 [facility] Blood hemoglobin measurement (mass/volume)Ordered By: Dr. Jauregui on 10-21-2022 Hemoglobin (Bld) [Mass/Vol] 14.4 g/dL 13.0-16.5 [facility] Blood lymphocytes/100 leukoc ytesOrdered By: Dr. Jauregui on 10-21-2022 Lymphocytes/100 WBC (Bld) 8.2 % 19-41 [facility] Blood monocytes/100 leukocyt esOrdered By: Dr. Jauregui on 10-21-2022 Monocytes/100 WBC (Bld) 5.4 % 0-10 [facility] Blood platelet mean volumeOr dered By: Dr. Jauregui on 10-21-2022 Platelet mean volume (Bld) [Entitic vol] 8.9 fL 6.2-12.0 [facility] Culture, urineOrdered By: Joseph Jauregui on 10-21-2022 Bacteria identified Cx Nom (U) Presumptive E. coli [facility] Determination of erythrocyte mean corpuscular volume (MCV)Ordered By: Dr. Jauregui on 10-21-2022 MCV (RBC) [Entitic vol] 95.6 fL 80-94 [facility] Hematocrit Auto (Bld) [Volum e fraction]Ordered By: Dr. Jauregui on 10-21-2022 Hematocrit (Bld) [Volume fraction] 43.1 % 40-54 [facility] Ketones Test strip Ql (U)Ord ered By: Dr. Jauregui on 10-21-2022 Ketones Ql (U) Negative Negative [facility] Laboratory - Chemistry and C hemistry - challengeOrdered By: Dr. Jauregui on 10-21-2022 ALP [Catalytic activity/Vol] 84 U/L 45-117 [facility] ALT [Catalytic activity/Vol] 41 U/L 16-61 [facility] CO2 [Moles/Vol] 28.0 mmol/L 21.0-32.0 [facility] Globulin (S) [Mass/Vol] 4.2 g/dL 2.2-4.2 [facility] Lipase [Catalytic activity/Vol] 42 U/L 13-75 [facility] Comment on above: Please note:LIPASE r evised reference range effective 22. New Lipase methodology. Expected to produce lower values than the previous assay method. NEW Reference Range: 13 - 75 U/L Urea nitrogen/Creatinine [Mass ratio] 16.3 mg/mg 10-20 [facility] Laboratory - Hematology and Cell countsOrdered By: Dr. Jauregui on 10-21-2022 Erythrocyte distribution width (RBC) [Entitic vol] 45.7 fL 35.1-43.9 [facility] Erythrocyte distribution width (RBC) [Ratio] 13.0 % 11.6-14.6 [facility] Immature granulocytes/100 WBC (Bld) 1.200 % 0.0-0.9 [facility] Comment on above: IG% - Immature Granu locytes (promyelocytes, myelocytes and metamyelocytes) > 1% indicates that a LEFT SHIFT is Present. MCH (RBC) [Entitic mass] 31.9 pg 27.0-32.0 [facility] Nucleated RBC/100 WBC (Bld) [Ratio] 0 % 0-5 [facility] MCHC Auto (RBC) [Mass/Vol]Or dered By: Dr. Jauregui on 10-21-2022 MCHC (RBC) [Mass/Vol] 33.4 g/dL 32-36 [facility] Mucus LM Ql (Urine sed)Order ed By: Dr. Jauregui on 10-21-2022 Mucus Ql (Urine sed) 0 SEEN /hpf [facility] Nitrite Test strip Ql (U)Ord ered By: Dr. Jauregui on 10-21-2022 Nitrite Ql (U) Negative Negative [facility] No Panel InformationOrdered By: Dr. Jauregui on 10-21-2022 Estimated GFR (MDRD) Amer 90 mL/min >60 [facility] Comment on above: GFR Calc Estimated GFR (MDRD) Non-Af Amer 74 mL/min >60 [facility] Comment on above: Non- GFR Calc Platelets bldOrdered By: Dr. Jauregui on 10-21-2022 Platelets (Bld) [#/Vol] 339 10*3/uL 150-450 [facility] Protein Test strip Ql (U)Ord ered By: Dr. Jauregui on 10-21-2022 Protein Ql (U) 100 mg/dl Negative [facility] Serum or plasma albumin luis urement (mass/volume)Ordered By: Dr. Jauregui on 10-21-2022 Albumin [Mass/Vol] 3.0 g/dL 3.2-5.0 [facility] Serum or plasma albumin/glob ulin mass ratioOrdered By: Dr. Jauregui on 10-21-2022 Albumin/Globulin [Mass ratio] 0.7 {ratio} 0.9-2.4 [facility] Serum or plasma calcium luis urement (mass/volume)Ordered By: Dr. Jauregui on 10-21-2022 Calcium [Mass/Vol] 9.8 mg/dL 8.5-10.1 [facility] Serum or plasma creatinine m easurement (mass/volume)Ordered By: Dr. Jauregui on 10-21-2022 Creatinine [Mass/Vol] 1.04 mg/dL 0.70-1.30 [facility] Comment on above: The validity of the calculated GFR & GFRAA in patients over 70 years has not been determined. Clinical correlation is essential. Serum or plasma urea nitroge n measurement (mass/volume)Ordered By: Dr. Jauregui on 10-21-2022 Urea nitrogen [Mass/Vol] 17 mg/dL 7-18 [facility] Squamous epithelial cells de tection in urine sediment by light microscopyOrdered By: Dr. Jauregui on 10-21-2022 Epithelial cells.squamous LM Ql (Urine sed) 0-5 SEEN /hpf 0-5 [facility] Thin prep Papanicolaou smear with manual screeningOrdered By: Dr. Jauregui on 10-21-2022 Thin prep Papanicolaou smear with manual screening 20 U/L 15-37 [facility] Thin prep Papanicolaou smear with manual screening 8 5-15 [facility] Urine blood detectionOrdered By: Dr. Jauregui on 10-21-2022 RBC Ql (U) 50 /ul Negative [facility] RBC Ql (U) 0 SEEN /hpf 0-5 [facility] Urine clarityOrdered By: Dr. Jauregui on 10-21-2022 Clarity (U) Sl. Cloudy Clear [facility] Urine color determinationOrd ered By: Dr. Jauregui on 10-21-2022 Color (U) Yellow Yellow [facility] Urine glucose detectionOrder ed By: Dr. Jauregui on 10-21-2022 Glucose Ql (U) Normal mg/dl Normal [facility] Urine leukocyte esterase det ection by dipstickOrdered By: Dr. Jauregui on 10-21-2022 Leukocyte esterase Test strip Ql (U) 500 /ul Negative [facility] Urine pHOrdered By: Dr. Babs mckeon on 10-21-2022 pH (U) 6.0 [pH] 5.0 - 8.0 [facility] Urine sediment bacteria coun t by microscopy (number/high power field)Ordered By: Dr. Jauregui on 10-21-2022 Bacteria LM.HPF (Urine sed) [#/Area] 2 /[HPF] None Seen [facility] Urine specific gravity measu rementOrdered By: Dr. Jauregui on 10-21-2022 Specific gravity (U) [Rel density] 1.010 1.002-1.030 [facility] Urobilinogen Auto test strip Ql (U)Ordered By: Dr. Jauregui on 10-21-2022 Urobilinogen Ql (U) Normal mg/dl Normal [facility] No Panel InformationOrdered By: Андрей Cooley on 08-11-2022 Miscellaneous Test See comment [facility] Comment on above: TEST RESULT LIMITSCa rbamazepine(Tegretol), S 7.1 ug/mL 4.0-12.0 In conjunction with other antiepileptic drugs Therapeutic 4.0 - 8.0 Toxicity 9.0 - 12.0 Carbamazepine alone Therapeutic 8.0 - 12.0 Detection Limit = 2.0 <2.0 indicated None Detected Verified by repeat analysis TESTING PERFORMED AT [facility]. ORIGINAL REPORT ON FILE IN LAB CONTAINS ADDITIONAL TEST SITE INFORMATION. No Panel InformationOrdered By: Андрей Cooley on 07-12-2022 Miscellaneous Test See comment [facility] Comment on above: TEST RESULT LIMITSCarbamazepine(Tegretol),SCarbamazepine(Tegretol), S 6.3 ug/mL 4.0-12.0 In conjunction with other antiepileptic drugs Therapeutic 4.0 - 8.0 Toxicity 9.0 - 12.0 Carbamazepine alone Therapeutic 8.0 - 12.0 Detection Limit = 2.0 <2.0 indicated None Detected ____ TESTING PERFORMED AT [facility]. ORIGINAL REPORT ON FILE IN LAB CONTAINS ADDITIONAL TEST SITE INFORMATION. Basophil percentageOrdered B y: Андрей Cooley on 06-14-2022 Bilirubin [Mass/Vol] 0.20 mg/dL 0.20-1.00 [facility] Comment on above: For patients on eltr ombopag therapy, use of Dimension [place] TBIL is not recommended. Chloride [Moles/Vol] 104 mmol/L 98-107 [facility] Cholesterol [Mass/Vol] 139 mg/dL <200 [facility] Comment on above: <200 mg/dL Desirable 200-240 mg/dL Borderline >240 mg/dL High Risk Glucose [Mass/Vol] 76 mg/dL 74-106 [facility] Potassium [Moles/Vol] 3.9 mmol/L 3.5-5.1 [facility] Protein [Mass/Vol] 6.4 g/dL 6.4-8.2 [facility] Sodium [Moles/Vol] 139 mmol/L 136-145 [facility] Triglyceride [Mass/Vol] 111 mg/dL <199 [facility] Comment on above: The drugs N-Acetylcy steine and Metamizole may falsely depress this assay.Serum Triglycerides Reference Interval Normal <150 mg/dL Borderline high 150 - 199 mg/dL High 200 - 499 mg/dL Very High > or = 500 mg/dL WBC (Bld) [#/Vol] 5.5 10*3/uL 4.4-11.0 [facility] Blood erythrocytes count (nu mber/volume)Ordered By: Андрей Cooley on 06-14-2022 RBC (Bld) [#/Vol] 4.57 10*6/uL 4.6-6.2 [facility] Blood hemoglobin measurement (mass/volume)Ordered By: Андрей Cooley on 06-14-2022 Hemoglobin (Bld) [Mass/Vol] 15.0 g/dL 13.0-16.5 [facility] Blood platelet mean volumeOr dered By: Андрей Cooley on 06-14-2022 Platelet mean volume (Bld) [Entitic vol] 10.0 fL 6.2-12.0 [facility] Determination of erythrocyte mean corpuscular volume (MCV)Ordered By: Андрей Cooley on 06-14-2022 MCV (RBC) [Entitic vol] 100.4 fL 80-94 [facility] Hematocrit Auto (Bld) [Volum e fraction]Ordered By: Андрей Cooley on 06-14-2022 Hematocrit (Bld) [Volume fraction] 45.9 % 40-54 [facility] Laboratory - Chemistry and C hemistry - challengeOrdered By: Андрей Cooley on 06-14-2022 ALP [Catalytic activity/Vol] 68 U/L 45-117 [facility] ALT [Catalytic activity/Vol] 31 U/L 16-61 [facility] CO2 [Moles/Vol] 31.0 mmol/L 21.0-32.0 [facility] Globulin (S) [Mass/Vol] 3.0 g/dL 2.2-4.2 [facility] Urea nitrogen/Creatinine [Mass ratio] 22.5 mg/mg 10-20 [facility] Laboratory - Hematology and Cell countsOrdered By: Андрей Cooley on 06-14-2022 Erythrocyte distribution width (RBC) [Entitic vol] 51.8 fL 35.1-43.9 [facility] Erythrocyte distribution width (RBC) [Ratio] 14.2 % 11.6-14.6 [facility] MCH (RBC) [Entitic mass] 32.8 pg 27.0-32.0 [facility] MCHC Auto (RBC) [Mass/Vol]Or dered By: Андрей Cooley on 06-14-2022 MCHC (RBC) [Mass/Vol] 32.7 g/dL 32-36 [facility] No Panel InformationOrdered By: Андрей Cooley on 06-14-2022 Estimated GFR (MDRD) Amer 108 mL/min >60 [facility] Comment on above: GFR Calc Estimated GFR (MDRD) Non-Af Amer 89 mL/min >60 [facility] Comment on above: Non- GFR Calc Vitamin D 25-Hydroxy 40.8 ng/mL [facility] Comment on above: Vitamin D 25(OH) Sta tus Range Deficiency <20 ng/mL (50nmol/L) Insufficiency 20 - 30 ng/mL (50 - 75 nmol/L) Sufficiency 30 - 100 ng/mL (75 - 250 nmol/L) Toxicity >100 ng/mL (>250 nmol/L) Platelets bldOrdered By: Italia Cooley on 06-14-2022 Platelets (Bld) [#/Vol] 239 10*3/uL 150-450 [facility] Serum or plasma albumin luis urement (mass/volume)Ordered By: Андрей Cooley on 06-14-2022 Albumin [Mass/Vol] 3.4 g/dL 3.2-5.0 [facility] Serum or plasma albumin/glob ulin mass ratioOrdered By: Андрей Cooley on 06-14-2022 Albumin/Globulin [Mass ratio] 1.1 {ratio} 0.9-2.4 [facility] Serum or plasma calcium luis urement (mass/volume)Ordered By: Андрей Cooley on 06-14-2022 Calcium [Mass/Vol] 9.1 mg/dL 8.5-10.1 [facility] Serum or plasma cholesterol in HDL measurement (mass/volume)Ordered By: Андрей Cooley on 06-14-2022 Cholesterol in HDL [Mass/Vol] 65 mg/dL >40 [facility] Comment on above: The drugs N-Acetylcy steine and Metamizole may falsely depress this assay. Reference Range HDL <40 mg/dL Low HDL Cholesterol HDL >or= 60 mg/dL High HDL Cholesterol Serum or plasma cholesterol in VLDL measurement (mass/volume)Ordered By: Андрей Cooley on 06-14-2022 Cholesterol in VLDL [Mass/Vol] 22 mg/dL 5-40 [facility] Serum or plasma creatinine m easurement (mass/volume)Ordered By: Андрей Cooley on 06-14-2022 Creatinine [Mass/Vol] 0.89 mg/dL 0.70-1.30 [facility] Comment on above: The validity of the calculated GFR & GFRAA in patients over 70 years has not been determined. Clinical correlation is essential. Serum or plasma low density lipoprotein (LDL) cholesterol measurement (mass/volume)Ordered By: Андрей Cooley on 06-14-2022 Cholesterol in LDL [Mass/Vol] 52 mg/dL 0-130 [facility] Serum or plasma urea nitroge n measurement (mass/volume)Ordered By: Андрей Cooley on 06-14-2022 Urea nitrogen [Mass/Vol] 20 mg/dL 7-18 [facility] Thin prep Papanicolaou smear with manual screeningOrdered By: Андрей Cooley on 06-14-2022 Thin prep Papanicolaou smear with manual screening 13 U/L 15-37 [facility] Thin prep Papanicolaou smear with manual screening 4 5-15 [facility] No Panel InformationOrdered By: Андрей Cooley on 05-13-2022 Miscellaneous Test See comment [facility] Comment on above: TEST RESULT LIMITSCa rbamazepine(Tegretol), S 6.2 ug/mL 4.0-12.0 In conjunction with other antiepileptic drugs Therapeutic 4.0 - 8.0 Toxicity 9.0 - 12.0 Carbamazepine alone Therapeutic 8.0 - 12.0 Detection Limit = 2.0 <2.0 indicated None Detected ____ TESTING PERFORMED AT [facility]. ORIGINAL REPORT ON FILE IN LAB CONTAINS ADDITIONAL TEST SITE INFORMATION. Absolute lymphocyte counton 03-15-2022 Lymphocytes Auto (Unsp spec) [#/Vol] 1.09 10*3/uL 0.83-4.51 [facility] Work Phone: Basophil percentageon 2021 Basophils/100 WBC (Bld) 0.7 % 0-1 [facility] Work Phone: Bilirubin [Mass/Vol] 0.30 mg/dL 0.20-1.00 [facility] Work Phone: Comment on above: For patients on eltr ombopag therapy, use of Dimension [place] TBIL is not recommended. Chloride [Moles/Vol] 96 mmol/L 98-107 [facility] Work Phone: Cholesterol [Mass/Vol] 137 mg/dL <200 [facility] Work Phone: Comment on above: <200 mg/dL Desirable 200-240 mg/dL Borderline >240 mg/dL High Risk Eosinophils/100 WBC (Bld) 1.0 % 0-5 [facility] Work Phone: Glucose [Mass/Vol] 84 mg/dL 74-106 [facility] Work Phone: Neutrophils (Bld) [#/Vol] 5.3 10*3/uL 2.0-7.7 [facility] Work Phone: Neutrophils/100 WBC (Bld) 74.4 % 47-70 [facility] Work Phone: [phone] Potassium [Moles/Vol] 3.5 mmol/L 3.5-5.1 [facility] Work Phone: [phone] Comment on above: Slight Hemolysis, Re sult may be falsely increased. Protein [Mass/Vol] 7.2 g/dL 6.4-8.2 [facility] Work Phone: [phone] Sodium [Moles/Vol] 133 mmol/L 136-145 [facility] Work Phone: [phone] Triglyceride [Mass/Vol] 121 mg/dL <199 [facility] Work Phone: [phone] Comment on above: The drugs N-Acetylcy steine and Metamizole may falsely depress this assay.Serum Triglycerides Reference Interval Normal <150 mg/dL Borderline high 150 - 199 mg/dL High 200 - 499 mg/dL Very High > or = 500 mg/dL WBC (Bld) [#/Vol] 7.2 10*3/uL 4.4-11.0 [facility] Work Phone: Blood erythrocytes count (nu mber/volume)on 03-15-2022 RBC (Bld) [#/Vol] 5.31 10*6/uL 4.6-6.2 [facility] Work Phone: [phone] Blood hemoglobin measurement (mass/volume)on 03-15-2022 Hemoglobin (Bld) [Mass/Vol] 17.0 g/dL 13.0-16.5 [facility] Work Phone: Blood lymphocytes/100 leukoc yteson 03-15-2022 Lymphocytes/100 WBC (Bld) 15.2 % 19-41 [facility] Work Phone: Blood monocytes/100 leukocyt eson 03-15-2022 Monocytes/100 WBC (Bld) 7.9 % 0-10 [facility] Work Phone: Blood platelet mean volumeon 03-15-2022 Platelet mean volume (Bld) [Entitic vol] 9.8 fL 6.2-12.0 [facility] Work Phone: Determination of erythrocyte mean corpuscular volume (MCV)on 03-15-2022 MCV (RBC) [Entitic vol] 93.2 fL 80-94 [facility] Work Phone: Hematocrit Auto (Bld) [Volum e fraction]on 03-15-2022 Hematocrit (Bld) [Volume fraction] 49.5 % 40-54 [facility] Work Phone: INR in Blood by Coagulation assayon 03-15-2022 INR Coag (Bld) [Relative time] 0.9 {INR} [facility] Work Phone: Laboratory - Chemistry and C hemistry - challengeon 03-15-2022 ALP [Catalytic activity/Vol] 71 U/L 45-117 [facility] Work Phone: ALT [Catalytic activity/Vol] 41 U/L 16-61 [facility] Work Phone: [phone] CO2 [Moles/Vol] 28.0 mmol/L 21.0-32.0 [facility] Work Phone: Globulin (S) [Mass/Vol] 4.1 g/dL 2.2-4.2 [facility] Work Phone: Urea nitrogen/Creatinine [Mass ratio] 21.2 mg/mg 10-20 [facility] Work Phone: Laboratory - Coagulationon 0 03-15-2022 PT Coag (PPP) [Time] 11.8 s 11.7-14.9 [facility] Laboratory - Hematology and Cell countson 03-15-2022 Erythrocyte distribution width (RBC) [Entitic vol] 44.0 fL 35.1-43.9 [facility] Work Phone: Erythrocyte distribution width (RBC) [Ratio] 12.7 % 11.6-14.6 [facility] Work Phone: Immature granulocytes/100 WBC (Bld) 0.800 % 0.0-0.9 [facility] Work Phone: Comment on above: IG% - Immature Granu locytes (promyelocytes, myelocytes and metamyelocytes) > 1% indicates that a LEFT SHIFT is Present. MCH (RBC) [Entitic mass] 32.0 pg 27.0-32.0 [facility] Work Phone: Nucleated RBC/100 WBC (Bld) [Ratio] 0 % 0-5 [facility] Work Phone: [phone] MCHC Auto (RBC) [Mass/Vol]on 03-15-2022 MCHC (RBC) [Mass/Vol] 34.3 g/dL 32-36 [facility] Work Phone: No Panel Informationon 03-15 Carbamazepine (Tegretol) Level 7.3 ug/mL 4.0-12.0 [facility] Work Phone: [phone] Estimated GFR (MDRD) Amer 101 mL/min >60 [facility] Work Phone: [phone] Comment on above: GFR Calc Estimated GFR (MDRD) Non-Af Amer 84 mL/min >60 [facility] Work Phone: [phone] Comment on above: Non- GFR Calc Platelets bldon 03-15-2022 Platelets (Bld) [#/Vol] 327 10*3/uL 150-450 [facility] Work Phone: [phone] Serum or plasma albumin luis urement (mass/volume)on 03-15-2022 Albumin [Mass/Vol] 3.1 g/dL 3.2-5.0 [facility] Work Phone: [phone] Serum or plasma albumin/glob ulin mass ratioon 03-15-2022 Albumin/Globulin [Mass ratio] 0.8 {ratio} 0.9-2.4 [facility] Work Phone: [phone] Serum or plasma calcium luis urement (mass/volume)on 03-15-2022 Calcium [Mass/Vol] 9.1 mg/dL 8.5-10.1 [facility] Work Phone: Serum or plasma cholesterol in HDL measurement (mass/volume)on 03-15-2022 Cholesterol in HDL [Mass/Vol] 72 mg/dL >40 [facility] Work Phone: Comment on above: The drugs N-Acetylcy steine and Metamizole may falsely depress this assay. Reference Range HDL <40 mg/dL Low HDL Cholesterol HDL >or= 60 mg/dL High HDL Cholesterol Serum or plasma cholesterol in VLDL measurement (mass/volume)on 03-15-2022 Cholesterol in VLDL [Mass/Vol] 24 mg/dL 5-40 [facility] Work Phone: Serum or plasma creatinine m easurement (mass/volume)on 03-15-2022 Creatinine [Mass/Vol] 0.94 mg/dL 0.70-1.30 [facility] Work Phone: Comment on above: The validity of the calculated GFR & GFRAA in patients over 70 years has not been determined. Clinical correlation is essential. Serum or plasma low density lipoprotein (LDL) cholesterol measurement (mass/volume)on 03-15-2022 Cholesterol in LDL [Mass/Vol] 41 mg/dL 0-130 [facility] Work Phone: Serum or plasma urea nitroge n measurement (mass/volume)on 03-15-2022 Urea nitrogen [Mass/Vol] 20 mg/dL 7-18 [facility] Work Phone: Thin prep Papanicolaou smear with manual screeningon 03-15-2022 Thin prep Papanicolaou smear with manual screening 54 U/L 15-37 [facility] Work Phone: Comment on above: Slight Hemolysis, Re sult may be falsely increased. Thin prep Papanicolaou smear with manual screening 9 5-15 [facility] Work Phone: Absolute lymphocyte counton 03-02-2022 Lymphocytes Auto (Unsp spec) [#/Vol] 1.54 10*3/uL 0.83-4.51 [facility] Work Phone: Basophil percentageon 2021 Basophils/100 WBC (Bld) 0.9 % 0-1 [facility] Work Phone: Bilirubin [Mass/Vol] 0.20 mg/dL 0.20-1.00 [facility] Work Phone: Comment on above: For patients on eltr ombopag therapy, use of Dimension [place] TBIL is not recommended. Chloride [Moles/Vol] 101 mmol/L 98-107 [facility] Work Phone: Eosinophils/100 WBC (Bld) 1.0 % 0-5 [facility] Work Phone: Glucose [Mass/Vol] 98 mg/dL 74-106 [facility] Work Phone: Neutrophils (Bld) [#/Vol] 4.6 10*3/uL 2.0-7.7 [facility] Work Phone: Neutrophils/100 WBC (Bld) 67.4 % 47-70 [facility] Work Phone: Potassium [Moles/Vol] 3.8 mmol/L 3.5-5.1 [facility] Work Phone: Protein [Mass/Vol] 7.5 g/dL 6.4-8.2 [facility] Work Phone: Sodium [Moles/Vol] 138 mmol/L 136-145 [facility] Work Phone: WBC (Bld) [#/Vol] 6.8 10*3/uL 4.4-11.0 [facility] Work Phone: Blood erythrocytes count (nu mber/volume)on 03-02-2022 RBC (Bld) [#/Vol] 5.14 10*6/uL 4.6-6.2 [facility] Work Phone: Blood hemoglobin measurement (mass/volume)on 03-02-2022 Hemoglobin (Bld) [Mass/Vol] 16.3 g/dL 13.0-16.5 [facility] Work Phone: Blood lymphocytes/100 leukoc yteson 03-02-2022 Lymphocytes/100 WBC (Bld) 22.8 % 19-41 [facility] Work Phone: Blood monocytes/100 leukocyt eson 03-02-2022 Monocytes/100 WBC (Bld) 7.3 % 0-10 [facility] Work Phone: Blood platelet mean volumeon 03-02-2022 Platelet mean volume (Bld) [Entitic vol] 9.9 fL 6.2-12.0 [facility] Work Phone: Determination of erythrocyte mean corpuscular volume (MCV)on 03-02-2022 MCV (RBC) [Entitic vol] 94.9 fL 80-94 [facility] Work Phone: Hematocrit Auto (Bld) [Volum e fraction]on 03-02-2022 Hematocrit (Bld) [Volume fraction] 48.8 % 40-54 [facility] Work Phone: Laboratory - Chemistry and C hemistry - challengeon 03-02-2022 ALP [Catalytic activity/Vol] 67 U/L 45-117 [facility] Work Phone: ALT [Catalytic activity/Vol] 27 U/L 16-61 [facility] Work Phone: CO2 [Moles/Vol] 30.0 mmol/L 21.0-32.0 [facility] Work Phone: Globulin (S) [Mass/Vol] 3.7 g/dL 2.2-4.2 [facility] Work Phone: Lipase [Catalytic activity/Vol] 95 U/L 73-393 [facility] Work Phone: Urea nitrogen/Creatinine [Mass ratio] 14.8 mg/mg 10-20 [facility] Work Phone: Laboratory - Hematology and Cell countson 03-02-2022 Erythrocyte distribution width (RBC) [Entitic vol] 47.0 fL 35.1-43.9 [facility] Work Phone: Erythrocyte distribution width (RBC) [Ratio] 13.9 % 11.6-14.6 [facility] Work Phone: [phone] Immature granulocytes/100 WBC (Bld) 0.600 % 0.0-0.9 [facility] Work Phone: [phone] Comment on above: IG% - Immature Granu locytes (promyelocytes, myelocytes and metamyelocytes) > 1% indicates that a LEFT SHIFT is Present. MCH (RBC) [Entitic mass] 31.7 pg 27.0-32.0 [facility] Work Phone: [phone] Nucleated RBC/100 WBC (Bld) [Ratio] 0 % 0-5 [facility] Work Phone: [phone] MCHC Auto (RBC) [Mass/Vol]on 03-02-2022 MCHC (RBC) [Mass/Vol] 33.4 g/dL 32-36 [facility] Work Phone: No Panel Informationon 03-02 Estimated Creatinine Clearance Calc 59.81 ml/min [facility] Work Phone: [phone] Estimated GFR (MDRD) Amer 86 mL/min >60 [facility] Work Phone: [phone] Comment on above: GFR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 Work Phone: Erythrocyte distribution width (RBC) [Ratio] 26.7 % 11.6-14.6 [facility] Work Phone: MCH (RBC) [Entitic mass] 24.3 pg 27.0-32.0 [facility] Work Phone: MCHC Auto (RBC) [Mass/Vol]on 12-01-2021 MCHC (RBC) [Mass/Vol] 28.2 g/dL 32-36 [facility] Work Phone: No Panel Informationon 12-01 Estimated GFR (MDRD) Amer 99 mL/min >60 [facility] Work Phone: Comment on above: GFR Calc Estimated GFR (MDRD) Non-Af Amer 82 mL/min >60 [facility] Work Phone: Comment on above: Non- GFR Calc Platelets bldon 12-01-2021 Platelets (Bld) [#/Vol] 307 10*3/uL 150-450 [facility] Work Phone: Serum or plasma calcium luis urement (mass/volume)on 12-01-2021 Calcium [Mass/Vol] 9.5 mg/dL 8.5-10.1 [facility] Work Phone: Serum or plasma creatinine m easurement (mass/volume)on 12-01-2021 Creatinine [Mass/Vol] 0.96 mg/dL 0.70-1.30 [facility] Work Phone: Comment on above: The validity of the calculated GFR & GFRAA in patients over 70 years has not been determined. Clinical correlation is essential. Serum or plasma urea nitroge n measurement (mass/volume)on 12-01-2021 Urea nitrogen [Mass/Vol] 14 mg/dL 7-18 [facility] Work Phone: Thin prep Papanicolaou smear with manual screeningon 12-01-2021 Thin prep Papanicolaou smear with manual screening 7 -15 [facility] Work Phone: Absolute lymphocyte counton 11-30-2021 Lymphocytes Auto (Unsp spec) [#/Vol] 1.13 10*3/uL 0.83-4.51 [facility] Work Phone: Basophil percentageon 2021 Basophil percentage 3.4 mg/dL 2.5-4.9 [facility] Work Phone: Basophils/100 WBC (Bld) 1.5 % 0-1 [facility] Work Phone: Chloride [Moles/Vol] 107 mmol/L 98-107 [facility] Work Phone: Eosinophils/100 WBC (Bld) 3.5 % 0-5 [facility] Work Phone: Glucose [Mass/Vol] 90 mg/dL 74-106 [facility] Work Phone: Neutrophils (Bld) [#/Vol] 6.9 10*3/uL 2.0-7.7 [facility] Work Phone: Neutrophils/100 WBC (Bld) 74.4 % 47-70 [facility] Work Phone: Potassium [Moles/Vol] 3.4 mmol/L 3.5-5.1 [facility] Work Phone: Sodium [Moles/Vol] 140 mmol/L 136-145 [facility] Work Phone: WBC (Bld) [#/Vol] 9.3 10*3/uL 4.4-11.0 [facility] Work Phone: Blood erythrocytes count (nu mber/volume)on 11-30-2021 RBC (Bld) [#/Vol] 3.21 10*6/uL 4.6-6.2 [facility] Work Phone: Blood hemoglobin measurement (mass/volume)on 11-30-2021 Hemoglobin (Bld) [Mass/Vol] 7.8 g/dL 13.0-16.5 [facility] Work Phone: Blood lymphocytes/100 leukoc yteson 11-30-2021 Lymphocytes/100 WBC (Bld) 12.2 % 19-41 [facility] Work Phone: Blood monocytes/100 leukocyt eson 11-30-2021 Monocytes/100 WBC (Bld) 7.0 % 0-10 [facility] Work Phone: Blood platelet mean volumeon 11-30-2021 Platelet mean volume (Bld) [Entitic vol] 10.8 fL 6.2-12.0 [facility] Work Phone: Blood polychromasia detectio n by light microscopyon 11-30-2021 Polychromasia LM Ql (Bld) 2+ [facility] Work Phone: Determination of erythrocyte mean corpuscular volume (MCV)on 11-30-2021 MCV (RBC) [Entitic vol] 83.8 fL 80-94 [facility] Work Phone: Hematocrit Auto (Bld) [Volum e fraction]on 11-30-2021 Hematocrit (Bld) [Volume fraction] 26.9 % 40-54 [facility] Work Phone: INR in Blood by Coagulation assayon 11-30-2021 INR Coag (Bld) [Relative time] 1.4 {INR} [facility] Work Phone: Laboratory - Chemistry and C hemistry - challengeon 11-30-2021 CO2 [Moles/Vol] 26.0 mmol/L 21.0-32.0 [facility] Work Phone: Urea nitrogen/Creatinine [Mass ratio] 12.0 mg/mg 10-20 [facility] Work Phone: [phone] Laboratory - Coagulationon 0 11-30-2021 PT Coag (PPP) [Time] 17.1 s 11.7-14.9 [facility] Work Phone: Laboratory - Hematology and Cell countson 11-30-2021 Anisocytosis Ql (Bld) 2+ [facility] Work Phone: [phone] Erythrocyte distribution width (RBC) [Entitic vol] 64.9 fL 35.1-43.9 [facility] Work Phone: [phone] Erythrocyte distribution width (RBC) [Ratio] 24.2 % 11.6-14.6 [facility] Work Phone: Immature granulocytes/100 WBC (Bld) 1.400 % 0.0-0.9 [facility] Work Phone: Comment on above: IG% - Immature Granu locytes (promyelocytes, myelocytes and metamyelocytes) > 1% indicates that a LEFT SHIFT is Present. MCH (RBC) [Entitic mass] 24.3 pg 27.0-32.0 [facility] Work Phone: Nucleated RBC/100 WBC (Bld) [Ratio] 2.7 % 0-5 [facility] Work Phone: MCHC Auto (RBC) [Mass/Vol]on 11-30-2021 MCHC (RBC) [Mass/Vol] 29.0 g/dL 32-36 [facility] Work Phone: No Panel Informationon 11-30 Estimated Creatinine Clearance Calc 70.99 ml/min [facility] Work Phone: Estimated GFR (MDRD) Amer 105 mL/min >60 [facility] Work Phone: [phone] Comment on above: GFR Calc Estimated GFR (MDRD) Non-Af Amer 87 mL/min >60 [facility] Work Phone: [phone] Comment on above: Non- GFR Calc Anti-Gliadin IgA Antibody 3 units 0-19 [facility] Work Phone: [phone] Comment on above: Negative 0 - 19 Weak Positive 20 - 30 Moderate to Strong Positive >30 Anti-Gliadin IgG Antibody 1 units 0-19 [facility] Work Phone: [phone] Comment on above: Negative 0 - 19 Weak Positive 20 - 30 Moderate to Strong Positive >30 Endomysial IgA Antibody Negative Negative [facility] Work Phone: [phone] Tissue Transglutaminase IgG Ab <2 U/mL 0-5 [facility] Work Phone: Comment on above: Negative 0 - 5 Weak Positive 6 - 9 Positive >9 Platelets bldon 11-30-2021 Platelets (Bld) [#/Vol] 305 10*3/uL 150-450 [facility] Work Phone: Serum IgA measurement (units /volume)on 11-30-2021 IgA Qn (S) 128 mg/dL 61-437 [facility] Work Phone: Comment on above: Performed at: [facility] [place] [id number] Director: Дмитрий Tran PhD, Phone: [phone] Serum or plasma calcium luis urement (mass/volume)on 11-30-2021 Calcium [Mass/Vol] 8.9 mg/dL 8.5-10.1 [facility] Work Phone: Serum or plasma creatinine m easurement (mass/volume)on 11-30-2021 Creatinine [Mass/Vol] 0.91 mg/dL 0.70-1.30 [facility] Work Phone: Comment on above: The validity of the calculated GFR & GFRAA in patients over 70 years has not been determined. Clinical correlation is essential. Serum or plasma urea nitroge n measurement (mass/volume)on 11-30-2021 Urea nitrogen [Mass/Vol] 11 mg/dL 7-18 [facility] Work Phone: Serum tissue transglutaminas e IgA antibody assay (units/volume)on 11-30-2021 tTG IgA Qn (S) <2 U/mL 0-3 [facility] Work Phone: Comment on above: Negative 0 - 3 Weak Positive 4 - 10 Positive >10 Tissue Transglutaminase (tTG) has been identified as the endomysial antigen. Studies have demonstr- ated that endomysial IgA antibodies have over 99% specificity for gluten sensitive enteropathy. Thin prep Papanicolaou smear with manual screeningon 11-30-2021 Thin prep Papanicolaou smear with manual screening 7 5-15 [facility] Work Phone: Blood platelet adequacy dete ction by light microscopyon 11-29-2021 Platelets LM Ql (Bld) ADEQUATE ADEQ [facility] Work Phone: Hypochromatic red blood cell detectionon 11-29-2021 Hypochromia Ql (Bld) 1+ [facility] Work Phone: Serum or plasma ferritin arlyn surement (mass/volume)on 11-29-2021 Ferritin [Mass/Vol] 157 ng/mL 26-388 [facility] Work Phone: Blood manual differential co mment interpretation (narrative result)on 11-28-2021 Manual differential comment Ghassan (Bld) [Interp] SCANNED [facility] Work Phone: Laboratory - Chemistry and C hemistry - challengeon 11-28-2021 Magnesium [Mass/Vol] 2.0 mg/dL 1.6-2.6 [facility] Work Phone: Macrocytes detectionon 11-28 Macrocytes Ql (Bld) RARE [facility] Work Phone: Ovalocyte detectionon 2021 Ovalocytes LM Ql (Bld) 1+ [facility] Work Phone: Thin prep Papanicolaou smear with manual screeningon 11-28-2021 Thin prep Papanicolaou smear with manual screening 1+ [facility] Work Phone: Laboratory - Chemistry and C hemistry - challengeon 11-26-2021 Cobalamin (Vitamin B12) [Mass/Vol] 403 pg/mL 211-911 [facility] Work Phone: No Panel Informationon 11-26 Troponin I High Sensitivity 13 pg/mL 3.0-78.0 [facility] Work Phone: Comment on above: Please Note: New [place] t Units and Gender Specific Reference Ranges. For more information see Policy Stat Procedure [place] High Sensitivity Troponin (TNIH) and attachments. Absolute lymphocyte counton 11-25-2021 Lymphocytes Auto (Unsp spec) [#/Vol] 0.81 10*3/uL 0.83-4.51 [facility] Work Phone: Basophil percentageon 2021 Basophil percentage 0 SEEN /hpf 0-5 [facility] Work Phone: Basophils/100 WBC (Bld) 0.7 % 0-1 [facility] Work Phone: Eosinophils/100 WBC (Bld) 0.1 % 0-5 [facility] Work Phone: Neutrophils (Bld) [#/Vol] 5.8 10*3/uL 2.0-7.7 [facility] Work Phone: Neutrophils/100 WBC (Bld) 80.9 % 47-70 [facility] Work Phone: WBC (Bld) [#/Vol] 7.1 10*3/uL 4.4-11.0 [facility] Work Phone: Bilirubin [Mass/Vol] 0.20 mg/dL 0.20-1.00 [facility] Work Phone: Comment on above: For patients on eltr ombopag therapy, use of Dimension [place] TBIL is not recommended. Chloride [Moles/Vol] 101 mmol/L 98-107 [facility] Work Phone: Glucose [Mass/Vol] 113 mg/dL 74-106 [facility] Work Phone: Comment on above: Fasting Glucose resu lt from 100 to 125 mg/dL suggests IMPAIRED HOMEOSTASIS per A.D.A. criteria. Potassium [Moles/Vol] 4.2 mmol/L 3.5-5.1 [facility] Work Phone: Protein [Mass/Vol] 6.8 g/dL 6.4-8.2 [facility] Work Phone: Sodium [Moles/Vol] 133 mmol/L 136-145 [facility] Work Phone: [phone] Bilirubin Test strip Ql (U)o n 11-25-2021 Bilirubin Ql (U) Negative Negative [facility] Work Phone: Blood erythrocytes count (nu mber/volume)on 11-25-2021 RBC (Bld) [#/Vol] 2.36 10*6/uL 4.6-6.2 [facility] Work Phone: Blood hemoglobin measurement (mass/volume)on 11-25-2021 Hemoglobin (Bld) [Mass/Vol] 4.4 g/dL 13.0-16.5 [facility] Work Phone: Comment on above: CRITICAL VALUE VERIF IED. CALLED TO [id number]/09/22 1830 Kateryna Horn.RESULTS READ BACK BY SAME . Blood lymphocytes/100 leukoc yteson 11-25-2021 Lymphocytes/100 WBC (Bld) 11.4 % 19-41 [facility] Work Phone: Blood manual differential co mment interpretation (narrative result)on 11-25-2021 Manual differential comment Ghassan (Bld) [Interp] SCANNED [facility] Work Phone: Comment on above: ANEMIA NOTED Blood monocytes/100 leukocyt eson 11-25-2021 Monocytes/100 WBC (Bld) 6.3 % 0-10 [facility] Work Phone: [phone] Blood platelet mean volumeon 11-25-2021 Platelet mean volume (Bld) [Entitic vol] 10.2 fL 6.2-12.0 [facility] Work Phone: Determination of erythrocyte mean corpuscular volume (MCV)on 11-25-2021 MCV (RBC) [Entitic vol] 71.6 fL 80-94 [facility] Work Phone: [phone] Hematocrit Auto (Bld) [Volum e fraction]on 11-25-2021 Hematocrit (Bld) [Volume fraction] 16.9 % 40-54 [facility] Work Phone: [phone] Hemoglobin in reticulocytes (mass per reticulocyte)on 11-25-2021 Hemoglobin (Reticulocytes) [Entitic mass] 15.0 pg 30-35 [facility] Work Phone: Hypochromatic red blood cell detectionon 11-25-2021 Hypochromia Ql (Bld) [facility]+ [facility]: [phone] INR in Blood by Coagulation assayon 11-25-2021 INR Coag (Bld) [Relative time] 5.4 {INR} [facility] Work Phone: [phone] Comment on above: CRITICAL VALUE VERIF IED. CALLED TO [id number] Kateryna Horn.RESULTS READ BACK BY SAME . Iron measurement (mass/mass) on 11-25-2021 Iron (Unsp spec) [Mass/Mass] 10 ug/dL 65-175 [facility] Work Phone: Ketones Test strip Ql (U)on 11-25-2021 Ketones Ql (U) Negative Negative [facility] Work Phone: [phone] Laboratory - Chemistry and C hemistry - challengeon 11-25-2021 ALP [Catalytic activity/Vol] 54 U/L 45-117 [facility] Work Phone: ALT [Catalytic activity/Vol] 20 U/L 16-61 [facility] Work Phone: [phone] CO2 [Moles/Vol] 23.0 mmol/L 21.0-32.0 [facility] Work Phone: [phone] Globulin (S) [Mass/Vol] 3.1 g/dL 2.2-4.2 [facility] Work Phone: Urea nitrogen/Creatinine [Mass ratio] 16.7 mg/mg 10-20 [facility] Work Phone: Laboratory - Coagulationon 0 11-25-2021 PT Coag (PPP) [Time] 49.2 s 11.7-14.9 [facility] Work Phone: Laboratory - Hematology and Cell countson 11-25-2021 Erythrocyte distribution width (RBC) [Entitic vol] 48.7 fL 35.1-43.9 [facility] Work Phone: [phone] Erythrocyte distribution width (RBC) [Ratio] 18.6 % 11.6-14.6 [facility] Work Phone: [phone] Immature granulocytes/100 WBC (Bld) 0.600 % 0.0-0.9 [facility] Work Phone: [phone] Comment on above: IG% - Immature Granu locytes (promyelocytes, myelocytes and metamyelocytes) > 1% indicates that a LEFT SHIFT is Present. MCH (RBC) [Entitic mass] 18.6 pg 27.0-32.0 [facility] Work Phone: [phone] Nucleated RBC/100 WBC (Bld) [Ratio] 0.6 % 0-5 [facility] Work Phone: Lower GI hemoglobin IA Ql (S tl)on 11-25-2021 Stool Occult Blood (LACI) Positive [facility] Work Phone: [phone] MCHC Auto (RBC) [Mass/Vol]on 11-25-2021 MCHC (RBC) [Mass/Vol] 26.0 g/dL 32-36 [facility] Work Phone: Mucus LM Ql (Urine sed)on Mucus Ql (Urine sed) 0 SEEN /hpf [facility] Work Phone: [phone] Nitrite Test strip Ql (U)on 11-25-2021 Nitrite Ql (U) Negative Negative [facility] Work Phone: No Panel Informationon 11-25 Immature Reticulocyte Fraction 25.00 % 3.00-15.90 [facility] Work Phone: [phone] Reticulocyte Count 2.10 % 0.5-1.5 [facility] Work Phone: Estimated Creatinine Clearance Calc 44.86 ml/min [facility] Work Phone: Estimated GFR (MDRD) Amer 62 mL/min >60 [facility] Work Phone: Comment on above: GFR Calc Estimated GFR (MDRD) Non-Af Amer 51 mL/min >60 [facility] Work Phone: Comment on above: Non- GFR Calc Total Iron Binding Capacity 466 ug/dL 250-450 [facility] Work Phone: Platelets bldon 11-25-2021 Platelets (Bld) [#/Vol] 398 10*3/uL 150-450 [facility] Work Phone: [phone] Protein Test strip Ql (U)on 11-25-2021 Protein Ql (U) Negative Negative [facility] Work Phone: [phone] Review by pathologiston Pathologist review Ghassan (Unsp spec) [Interp] October jj [facility] Work Phone: Pathologist review Ghassan (Unsp spec) [Interp] Reviewed [facility] Work Phone: [phone] Comment on above: Previous reported re sult: Lena gardner Edited by: RGOROMMEL on 11/26/21:1239Severe Microcytic anemia.Clinical correlation necessary.Sebastian Gonzalez M.D. 11/26/21 AMENDED REPORT 11/26/21 1239 PATH REV previously reported as: October jj Serum or plasma albumin luis urement (mass/volume)on 11-25-2021 Albumin [Mass/Vol] 3.7 g/dL 3.2-5.0 [facility] Work Phone: Serum or plasma albumin/glob ulin mass ratioon 11-25-2021 Albumin/Globulin [Mass ratio] 1.2 {ratio} 0.9-2.4 [facility] Work Phone: Serum or plasma calcium luis urement (mass/volume)on 11-25-2021 Calcium [Mass/Vol] 8.2 mg/dL 8.5-10.1 [facility] Work Phone: [phone] Serum or plasma creatinine m easurement (mass/volume)on 11-25-2021 Creatinine [Mass/Vol] 1.44 mg/dL 0.70-1.30 [facility] Work Phone: Comment on above: The validity of the calculated GFR & GFRAA in patients over 70 years has not been determined. Clinical correlation is essential. Serum or plasma ferritin arlyn surement (mass/volume)on 11-25-2021 Ferritin [Mass/Vol] 5 ng/mL 26-388 [facility] Work Phone: [phone] Serum or plasma folate measu rement (mass/volume)on 11-25-2021 Folate [Mass/Vol] 12.90 ng/mL 3.1-55.4 [facility] Work Phone: [phone] Serum or plasma iron saturat ion measurement (mass fraction)on 11-25-2021 Iron saturation [Mass fraction] 2.1 % 15.0-55.0 [facility] Work Phone: Serum or plasma urea nitroge n measurement (mass/volume)on 11-25-2021 Urea nitrogen [Mass/Vol] 24 mg/dL 7-18 [facility] Work Phone: [phone] Squamous epithelial cells de tection in urine sediment by light microscopyon 11-25-2021 Epithelial cells.squamous LM Ql (Urine sed) 0 SEEN /hpf 0-5 [facility] Work Phone: [phone] Thin prep Papanicolaou smear with manual screeningon 11-25-2021 Thin prep Papanicolaou smear with manual screening 10 U/L 15-37 [facility] Work Phone: [phone] Thin prep Papanicolaou smear with manual screening 9 5-15 [facility] Work Phone: [phone] Urine blood detectionon RBC Ql (U) 50 /ul Negative [facility] Work Phone: RBC Ql (U) 5-10 SEEN /hpf 0-5 [facility] Work Phone: Urine clarityon 11-25-2021 Clarity (U) Clear Clear [facility] Work Phone: Urine color determinationon 11-25-2021 Color (U) Straw Yellow [facility] Work Phone: Urine glucose detectionon Glucose Ql (U) Normal mg/dl Normal [facility] Work Phone: [phone] Urine leukocyte esterase det ection by dipstickon 11-25-2021 Leukocyte esterase Test strip Ql (U) Negative Negative [facility] Work Phone: Urine pHon 11-25-2021 pH (U) 7.0 [pH] 5.0 - 8.0 [facility] Work Phone: Urine sediment bacteria coun t by microscopy (number/high power field)on 11-25-2021 Bacteria LM.HPF (Urine sed) [#/Area] RARE /hpf None Seen [facility] Work Phone: Urine specific gravity measu rementon 11-25-2021 Specific gravity (U) [Rel density] 1.010 1.002-1.030 [facility] Work Phone: Urobilinogen Auto test strip Ql (U)on 11-25-2021 Urobilinogen Ql (U) Normal mg/dl Normal [facility] Work Phone: INR in Blood by Coagulation assayon 11-11-2021 INR Coag (Bld) [Relative time] 1.2 {INR} [facility] Laboratory - Coagulationon 0 11-11-2021 PT Coag (PPP) [Time] 15.1 s 11.7-14.9 [facility] Work Phone: No Panel Informationon 11-08 DLCO (ml/min/mmHg) 7.15 ml/min/mmHg [facility] DLCO/VA (ml/min/mmHg/L) 1.63 ml/min/mmHg/L [facility] [id number]% PRE (L/S) 0.30 L/S [facility] FEV1 PRE (L) 0.85 L [facility] FEV1/FVC PRE (%) 0.38 % [facility] FVC PRE (L) 2.23 L [facility] PEF PRE (L/S) 1.51 L/S [facility] VA (L) 4.38 L [facility] CNCOon 10-18-2021 CNCO Letter Text Letter Text Normal [facility] INR FINGERSTICK B/Oon 2021 INR Coag (Bld) [Relative time] 2.2 EXT [facility] Quality Check No [facility] Absolute lymphocyte counton 10-08-2021 Lymphocytes Auto (Unsp spec) [#/Vol] 1.26 10*3/uL 0.83-4.51 [facility] Work Phone: Basophil percentageon 2021 Basophil percentage 10-25 SEEN /hpf 0-5 [facility] Work Phone: Basophils/100 WBC (Bld) 1.3 % 0-1 [facility] Work Phone: Bilirubin [Mass/Vol] 0.30 mg/dL 0.20-1.00 [facility] Work Phone: Comment on above: For patients on eltr ombopag therapy, use of Dimension [place] TBIL is not recommended. Chloride [Moles/Vol] 105 mmol/L 98-107 [facility] Work Phone: Eosinophils/100 WBC (Bld) 0.5 % 0-5 [facility] Work Phone: Glucose [Mass/Vol] 99 mg/dL 74-106 [facility] Work Phone: Neutrophils (Bld) [#/Vol] 4.3 10*3/uL 2.0-7.7 [facility] Work Phone: Neutrophils/100 WBC (Bld) 70.4 % 47-70 [facility] Work Phone: Potassium [Moles/Vol] 3.7 mmol/L 3.5-5.1 [facility] Work Phone: Protein [Mass/Vol] 7.5 g/dL 6.4-8.2 [facility] Work Phone: Sodium [Moles/Vol] 138 mmol/L 136-145 [facility] Work Phone: WBC (Bld) [#/Vol] 6.1 10*3/uL 4.4-11.0 [facility] Work Phone: Bilirubin Test strip Ql (U)o n 10-08-2021 Bilirubin Ql (U) Negative Negative [facility] Work Phone: Blood erythrocytes count (nu mber/volume)on 10-08-2021 RBC (Bld) [#/Vol] 3.87 10*6/uL 4.6-6.2 [facility] Work Phone: Blood hemoglobin measurement (mass/volume)on 10-08-2021 Hemoglobin (Bld) [Mass/Vol] 8.3 g/dL 13.0-16.5 [facility] Work Phone: Blood lymphocytes/100 leukoc yteson 10-08-2021 Lymphocytes/100 WBC (Bld) 20.5 % 19-41 [facility] Work Phone: Blood monocytes/100 leukocyt eson 10-08-2021 Monocytes/100 WBC (Bld) 7.0 % 0-10 [facility] Work Phone: Blood platelet mean volumeon 10-08-2021 Platelet mean volume (Bld) [Entitic vol] 10.1 fL 6.2-12.0 [facility] Work Phone: Determination of erythrocyte mean corpuscular volume (MCV)on 10-08-2021 MCV (RBC) [Entitic vol] 74.7 fL 80-94 [facility] Work Phone: Hematocrit Auto (Bld) [Volum e fraction]on 10-08-2021 Hematocrit (Bld) [Volume fraction] 28.9 % 40-54 [facility] Work Phone: INR in Blood by Coagulation assayon 10-08-2021 INR Coag (Bld) [Relative time] 2.4 {INR} [facility] Work Phone: Ketones Test strip Ql (U)on 10-08-2021 Ketones Ql (U) Negative Negative [facility] Work Phone: Laboratory - Chemistry and C hemistry - challengeon 10-08-2021 ALP [Catalytic activity/Vol] 74 U/L 45-117 [facility] Work Phone: ALT [Catalytic activity/Vol] 21 U/L 16-61 [facility] Work Phone: [phone] CO2 [Moles/Vol] 30.0 mmol/L 21.0-32.0 [facility] Work Phone: Globulin (S) [Mass/Vol] 3.7 g/dL 2.2-4.2 [facility] Work Phone: [phone] Lipase [Catalytic activity/Vol] 93 U/L 73-393 [facility] Work Phone: [phone] Urea nitrogen/Creatinine [Mass ratio] 20.2 mg/mg 10-20 [facility] Work Phone: Laboratory - Coagulationon 0 10-08-2021 PT Coag (PPP) [Time] 25.7 s 11.7-14.9 [facility] Work Phone: [phone] Laboratory - Hematology and Cell countson 10-08-2021 Erythrocyte distribution width (RBC) [Entitic vol] 50.4 fL 35.1-43.9 [facility] Work Phone: [phone] Erythrocyte distribution width (RBC) [Ratio] 18.6 % 11.6-14.6 [facility] Work Phone: [phone] Immature granulocytes/100 WBC (Bld) 0.300 % 0.0-0.9 [facility] Work Phone: Comment on above: IG% - Immature Granu locytes (promyelocytes, myelocytes and metamyelocytes) > 1% indicates that a LEFT SHIFT is Present. MCH (RBC) [Entitic mass] 21.4 pg 27.0-32.0 [facility] Work Phone: [phone] Nucleated RBC/100 WBC (Bld) [Ratio] 0 % 0-5 [facility] Work Phone: [phone] MCHC Auto (RBC) [Mass/Vol]on 10-08-2021 MCHC (RBC) [Mass/Vol] 28.7 g/dL 32-36 [facility] Work Phone: [phone] Mucus LM Ql (Urine sed)on Mucus Ql (Urine sed) 0 SEEN /hpf [facility] Work Phone: [phone] Nitrite Test strip Ql (U)on 10-08-2021 Nitrite Ql (U) Positive Negative [facility] Work Phone: [phone] Panel Informationon 10-08 Estimated Creatinine Clearance Calc 68.72 ml/min [facility] Work Phone: [phone] GFR (MDRD) Amer 101 mL/min >60 [facility] Work Phone: [phone] Comment on above: GFR Calc Estimated GFR (MDRD) Non-Af Amer 84 mL/min >60 [facility] Work Phone: [phone] Comment on above: Non- GFR Calc Platelets bldon 10-08-2021 Platelets (Bld) [#/Vol] 349 10*3/uL 150-450 [facility] Work Phone: [phone] Protein Test strip Ql (U)on 10-08-2021 Protein Ql (U) 100 mg/dl Negative [facility] Work Phone: [phone] Serum or plasma albumin luis urement (mass/volume)on 10-08-2021 Albumin [Mass/Vol] 3.8 g/dL 3.2-5.0 [facility] Work Phone: [phone] Serum or plasma albumin/glob ulin mass ratioon 10-08-2021 Albumin/Globulin [Mass ratio] 1.0 {ratio} 0.9-2.4 [facility] Work Phone: Serum or plasma calcium luis urement (mass/volume)on 10-08-2021 Calcium [Mass/Vol] 9.1 mg/dL 8.5-10.1 [facility] Work Phone: Serum or plasma creatinine m easurement (mass/volume)on 10-08-2021 Creatinine [Mass/Vol] 0.94 mg/dL 0.70-1.30 [facility] Work Phone: Comment on above: The validity of the calculated GFR & GFRAA in patients over 70 years has not been determined. Clinical correlation is essential. Serum or plasma urea nitroge n measurement (mass/volume)on 10-08-2021 Urea nitrogen [Mass/Vol] 19 mg/dL 7-18 [facility] Work Phone: Squamous epithelial cells de tection in urine sediment by light microscopyon 10-08-2021 Epithelial cells.squamous LM Ql (Urine sed) 0-5 SEEN /hpf 0-5 [facility] Work Phone: Thin prep Papanicolaou smear with manual screeningon 10-08-2021 Thin prep Papanicolaou smear with manual screening 12 U/L 15-37 [facility] Work Phone: Thin prep Papanicolaou smear with manual screening 3 5-15 [facility] Work Phone: Urine blood detectionon 09-18 RBC Ql (U) 10 /ul Negative [facility] Work Phone: RBC Ql (U) 0 SEEN /hpf 0-5 [facility] Work Phone: [phone] Urine clarityon 10-08-2021 Clarity (U) Sl. Cloudy Clear [facility] Work Phone: [phone] Urine color determinationon 10-08-2021 Color (U) Yellow Yellow [facility] Work Phone: [phone] Urine glucose detectionon Glucose Ql (U) Normal mg/dl Normal [facility] Work Phone: [phone] Urine leukocyte esterase det ection by dipstickon 10-08-2021 Leukocyte esterase Test strip Ql (U) 500 /ul Negative [facility] Work Phone: Urine pHon 10-08-2021 pH (U) 6.5 [pH] 5.0 - 8.0 [facility] Work Phone: Urine sediment bacteria coun t by microscopy (number/high power field)on 10-08-2021 Bacteria LM.HPF (Urine sed) [#/Area] 3 /[HPF] None Seen [facility] Work Phone: Urine specific gravity measu rementon 10-08-2021 Specific gravity (U) [Rel density] 1.010 1.002-1.030 [facility] Work Phone: Urobilinogen Auto test strip Ql (U)on 10-08-2021 Urobilinogen Ql (U) Normal mg/dl Normal [facility] Work Phone: Absolute lymphocyte counton 09-22-2021 Lymphocytes Auto (Unsp spec) [#/Vol] 1.51 10*3/uL 0.83-4.51 [facility] Work Phone: Basophil percentageon 2021 Basophils/100 WBC (Bld) 2.1 % 0-1 [facility] Work Phone: Eosinophils/100 WBC (Bld) 5.1 % 0-5 [facility] Work Phone: Neutrophils (Bld) [#/Vol] 3.7 10*3/uL 2.0-7.7 [facility] Work Phone: Neutrophils/100 WBC (Bld) 60.6 % 47-70 [facility] Work Phone: WBC (Bld) [#/Vol] 6.1 10*3/uL 4.4-11.0 [facility] Work Phone: Blood erythrocytes count (nu mber/volume)on 09-22-2021 RBC (Bld) [#/Vol] 4.09 10*6/uL 4.6-6.2 [facility] [facility] Work Phone: Blood hemoglobin measurement (mass/volume)on 09-22-2021 Hemoglobin (Bld) [Mass/Vol] 9.1 g/dL 13.0-16.5 [facility] Work Phone: [phone] Blood lymphocytes/100 leukoc yteson 09-22-2021 Lymphocytes/100 WBC (Bld) 24.8 % 19-41 [facility] Work Phone: [phone] Blood monocytes/100 leukocyt eson 09-22-2021 Monocytes/100 WBC (Bld) 6.9 % 0-10 [facility] Work Phone: [phone] Blood platelet mean volumeon 09-22-2021 Platelet mean volume (Bld) [Entitic vol] 9.9 fL 6.2-12.0 [facility] Work Phone: [phone] Determination of erythrocyte mean corpuscular volume (MCV)on 09-22-2021 MCV (RBC) [Entitic vol] 77.5 fL 80-94 [facility] Work Phone: [phone] Hematocrit Auto (Bld) [Volum e fraction]on 09-22-2021 Hematocrit (Bld) [Volume fraction] 31.7 % 40-54 [facility] Work Phone: [phone] Laboratory - Hematology and Cell countson 09-22-2021 Erythrocyte distribution width (RBC) [Entitic vol] 56.2 fL 35.1-43.9 [facility] Work Phone: [phone] Erythrocyte distribution width (RBC) [Ratio] 19.9 % 11.6-14.6 [facility] Work Phone: [phone] Immature granulocytes/100 WBC (Bld) 0.500 % 0.0-0.9 [facility] Work Phone: [phone] Comment on above: IG% - Immature Granu locytes (promyelocytes, myelocytes and metamyelocytes) > 1% indicates that a LEFT SHIFT is Present. MCH (RBC) [Entitic mass] 22.2 pg 27.0-32.0 [facility] Work Phone: Nucleated RBC/100 WBC (Bld) [Ratio] 0 % 0-5 [facility] Work Phone: MCHC Auto (RBC) [Mass/Vol]on 09-22-2021 MCHC (RBC) [Mass/Vol] 28.7 g/dL 32-36 [facility] Work Phone: Platelets bldon 09-22-2021 Platelets (Bld) [#/Vol] 351 10*3/uL 150-450 [facility] Work Phone: CNPNon 09-21-2021 LAMINN Telephone (AGGENS1) PEDRO PABLO SIERRA ([id number]) 1950 M T Date Time Provider Department 09/21/21 YE COELLO1 During your visit today, we recorded the following information about you: Veronica Reyes LPN 09/21/2021 8:44 AM Signed SYEMOUR BOUDREAUX W/DR. ORTEGA'S OFFICE TRANFERRED PATIENT TO [...] Date Reviewed: 09/15/2021 Reviewed by: Anjel Braga APRN.SPECIALIST ICU - Fully Assessed Reason for Visit: Appointment [...] [J43.9] - COMPOUNDED PRESCRIPTION Aerosol supplies Dx:J44.1 NPI#[id number] - COMPOUNDED PRESCRIPTION NEBULIZER FOR HOME USE. [...] left fem (more content not included)... Normal [facility] Absolute lymphocyte counton 09-17-2021 Lymphocytes Auto (Unsp spec) [#/Vol] 1.19 10*3/uL 0.83-4.51 [facility] Work Phone: Basophil percentageon 2021 Basophil percentage 0-5 SEEN /hpf 0-5 [facility] Work Phone: Basophils/100 WBC (Bld) 1.6 % 0-1 [facility] Work Phone: Bilirubin [Mass/Vol] 0.30 mg/dL 0.20-1.00 [facility] Work Phone: Comment on above: For patients on eltr ombopag therapy, use of Dimension [place] TBIL is not recommended. Chloride [Moles/Vol] 104 mmol/L 98-107 [facility] Work Phone: Eosinophils/100 WBC (Bld) 1.1 % 0-5 [facility] Work Phone: Glucose [Mass/Vol] 100 mg/dL 74-106 [facility] Work Phone: Comment on above: Fasting Glucose resu lt from 100 to 125 mg/dL suggests IMPAIRED HOMEOSTASIS per A.D.A. criteria. Neutrophils (Bld) [#/Vol] 5.2 10*3/uL 2.0-7.7 [facility] Work Phone: Neutrophils/100 WBC (Bld) 73.0 % 47-70 [facility] Work Phone: Potassium [Moles/Vol] 4.2 mmol/L 3.5-5.1 [facility] Work Phone: Protein [Mass/Vol] 7.3 g/dL 6.4-8.2 [facility] Work Phone: [phone] Sodium [Moles/Vol] 136 mmol/L 136-145 [facility] Work Phone: [phone] WBC (Bld) [#/Vol] 7.1 10*3/uL 4.4-11.0 [facility] Work Phone: [phone] Bilirubin Test strip Ql (U)o n 09-17-2021 Bilirubin Ql (U) Negative Negative [facility] Work Phone: [phone] Blood erythrocytes count (nu mber/volume)on 09-17-2021 RBC (Bld) [#/Vol] 3.50 10*6/uL 4.6-6.2 [facility] Work Phone: [phone] Blood hemoglobin measurement (mass/volume)on 09-17-2021 Hemoglobin (Bld) [Mass/Vol] 7.9 g/dL 13.0-16.5 [facility] Work Phone: [phone] Blood lymphocytes/100 leukoc yteson 09-17-2021 Lymphocytes/100 WBC (Bld) 16.9 % 19-41 [facility] Work Phone: [phone] Blood monocytes/100 leukocyt eson 09-17-2021 Monocytes/100 WBC (Bld) 7.1 % 0-10 [facility] Work Phone: [phone] Blood platelet mean volumeon 09-17-2021 Platelet mean volume (Bld) [Entitic vol] 9.5 fL 6.2-12.0 [facility] Work Phone: [phone] Determination of erythrocyte mean corpuscular volume (MCV)on 09-17-2021 MCV (RBC) [Entitic vol] 75.1 fL 80-94 [facility] Work Phone: [phone] Hematocrit Auto (Bld) [Volum e fraction]on 09-17-2021 Hematocrit (Bld) [Volume fraction] 26.3 % 40-54 [facility] Work Phone: [phone] INR in Blood by Coagulation assayon 09-17-2021 INR Coag (Bld) [Relative time] 1.3 {INR} [facility] Work Phone: Ketones Test strip Ql (U)on 09-17-2021 Ketones Ql (U) Negative Negative [facility] Work Phone: [phone] Laboratory - Chemistry and C hemistry - challengeon 09-17-2021 ALP [Catalytic activity/Vol] 79 U/L 45-117 [facility] Work Phone: [phone] ALT [Catalytic activity/Vol] 36 U/L 16-61 [facility] Work Phone: [phone] CO2 [Moles/Vol] 25.0 mmol/L 21.0-32.0 [facility] Work Phone: [phone] Globulin (S) [Mass/Vol] 3.5 g/dL 2.2-4.2 [facility] Work Phone: [phone] Lipase [Catalytic activity/Vol] 102 U/L 73-393 [facility] Work Phone: [phone] Urea nitrogen/Creatinine [Mass ratio] 12.5 mg/mg 10-20 [facility] Work Phone: [phone] Laboratory - Coagulationon 0 09-17-2021 PT Coag (PPP) [Time] 15.4 s 11.7-14.9 [facility] Work Phone: Laboratory - Hematology and Cell countson 09-17-2021 Erythrocyte distribution width (RBC) [Entitic vol] 53.1 fL 35.1-43.9 [facility] Work Phone: [phone] Erythrocyte distribution width (RBC) [Ratio] 19.6 % 11.6-14.6 [facility] Work Phone: [phone] Immature granulocytes/100 WBC (Bld) 0.300 % 0.0-0.9 [facility] Work Phone: [phone] Comment on above: IG% - Immature Granu locytes (promyelocytes, myelocytes and metamyelocytes) > 1% indicates that a LEFT SHIFT is Present. MCH (RBC) [Entitic mass] 22.6 pg 27.0-32.0 [facility] Work Phone: Nucleated RBC/100 WBC (Bld) [Ratio] 0 % 0-5 [facility] Work Phone: [phone] MCHC Auto (RBC) [Mass/Vol]on 09-17-2021 MCHC (RBC) [Mass/Vol] 30.0 g/dL 32-36 [facility] Work Phone: Mucus LM Ql (Urine sed)on Mucus Ql (Urine sed) 0 SEEN /hpf [facility] Work Phone: [phone] Nitrite Test strip Ql (U)on 09-17-2021 Nitrite Ql (U) Positive Negative [facility] Work Phone: [phone] Panel Informationon 09-17 Estimated Creatinine Clearance Calc 57.68 ml/min [facility] Work Phone: [phone] Estimated GFR (MDRD) Amer 83 mL/min >60 [facility] Work Phone: [phone] Comment on above: GFR Calc Estimated GFR (MDRD) Non-Af Amer 68 mL/min >60 [facility] Work Phone: [phone] Comment on above: Non- GFR Calc Platelets bldon 09-17-2021 Platelets (Bld) [#/Vol] 342 10*3/uL 150-450 [facility] Work Phone: Protein Test strip Ql (U)on 09-17-2021 Protein Ql (U) 15 mg/dl Negative [facility] Work Phone: [phone] Serum or plasma albumin luis urement (mass/volume)on 09-17-2021 Albumin [Mass/Vol] 3.8 g/dL 3.2-5.0 [facility] Work Phone: [phone] Serum or plasma albumin/glob ulin mass ratioon 09-17-2021 Albumin/Globulin [Mass ratio] 1.1 {ratio} 0.9-2.4 [facility] Work Phone: [phone] Serum or plasma calcium luis urement (mass/volume)on 04-01-2022 Calcium [Mass/Vol] 8.7 mg/dL 8.5-10.1 [facility] Work Phone: Serum or plasma creatinine m easurement (mass/volume)on 09-17-2021 Creatinine [Mass/Vol] 1.12 mg/dL 0.70-1.30 [facility] Work Phone: Comment on above: The validity of the calculated GFR & GFRAA in patients over 70 years has not been determined. Clinical correlation is essential. Serum or plasma urea nitroge n measurement (mass/volume)on 09-17-2021 Urea nitrogen [Mass/Vol] 14 mg/dL 7-18 [facility] Work Phone: Squamous epithelial cells de tection in urine sediment by light microscopyon 09-17-2021 Epithelial cells.squamous LM Ql (Urine sed) 0-5 SEEN /hpf 0-5 [facility] Work Phone: Thin prep Papanicolaou smear with manual screeningon 09-17-2021 Thin prep Papanicolaou smear with manual screening 19 U/L 15-37 [facility] Work Phone: Thin prep Papanicolaou smear with manual screening 7 5-15 [facility] Work Phone: Urine blood detectionon 04-0 RBC Ql (U) Negative Negative [facility] Work Phone: RBC Ql (U) 0 SEEN /hpf 0-5 [facility] Work Phone: Urine clarityon 09-17-2021 Clarity (U) Clear Clear [facility] Work Phone: Urine color determinationon 09-17-2021 Color (U) Yellow Yellow [facility] Work Phone: [phone] Urine glucose detectionon Glucose Ql (U) Normal mg/dl Normal [facility] Work Phone: [phone] Urine leukocyte esterase det ection by dipstickon 09-17-2021 Leukocyte esterase Test strip Ql (U) 25 /ul Negative [facility] Work Phone: [phone] Urine pHon 09-17-2021 pH (U) 6.0 [pH] 5.0 - 8.0 [facility] Work Phone: Urine sediment bacteria coun t by microscopy (number/high power field)on 09-17-2021 Bacteria LM.HPF (Urine sed) [#/Area] 1 /[HPF] None Seen [facility] Work Phone: Urine specific gravity measu rementon 09-17-2021 Specific gravity (U) [Rel density] 1.010 1.002-1.030 [facility] Work Phone: Urobilinogen Auto test strip Ql (U)on 09-17-2021 Urobilinogen Ql (U) Normal mg/dl Normal [facility] Work Phone: PT panel Coag (PPP)on 2021 INR Coag (Bld) [Relative time] 2.1 (EXT) 2.0 - 3.0 [facility] UA DIP, URINE (POC)on 2021 BILIRUBIN UA (POCT) Negative Negative [facility] CLARITY UA (POCT) Clear [facility] COLOR UA (POCT) Yellow [facility] GLUCOSE UA (POCT) Negative Negative mg/dL [facility] HEMOGLOBIN/BLOOD UA (POCT) Trace-lysed Abnormal Negative [facility] KETONE UA (POCT) Negative Negative mg/dL [facility] LEUKOCYTES UA (POCT) Small Abnormal Negative [facility] NITRITE UA (POCT) Positive Abnormal Negative [facility] PH UA (POCT) 5.5 4.5 - 8.0 [facility] Protein Ql (U) 100 mg/dL Abnormal Negative mg/dL [facility] SPECIFIC GRAVITY UA (POCT) 1.020 1.005 - 1.030 [facility] UROBILINOGEN UA (POCT) 0.2 E.U./dL Malaika l E.U./dL [facility] Glucose Glucometer (dC) [M ass/Vol]on 08-21-2021 Glucose [Mass/Vol] 102 mg/dL 74-106 [facility] Work Phone: Comment on above: MANAGEMENT OF PATIEN T CARE PER NURSING PROTOCOL INR in Blood by Coagulation assayon 08-21-2021 INR Coag (Bld) [Relative time] 1.2 {INR} [facility] Work Phone: Laboratory - Coagulationon 0 08-21-2021 PT Coag (PPP) [Time] 14.9 s 11.7-14.9 [facility] Work Phone: Absolute lymphocyte counton 08-20-2021 Lymphocytes Auto (Unsp spec) [#/Vol] 0.77 10*3/uL 0.83-4.51 [facility] Work Phone: Basophil percentageon 2021 Basophils/100 WBC (Bld) 0.8 % 0-1 [facility] Work Phone: Bilirubin [Mass/Vol] 0.70 mg/dL 0.20-1.00 [facility] Work Phone: Comment on above: For patients on eltr ombopag therapy, use of Dimension [place] TBIL is not recommended. Chloride [Moles/Vol] 107 mmol/L 98-107 [facility] Work Phone: Eosinophils/100 WBC (Bld) 2.2 % 0-5 [facility] Work Phone: Glucose [Mass/Vol] 99 mg/dL 74-106 [facility] Work Phone: Neutrophils (Bld) [#/Vol] 4.9 10*3/uL 2.0-7.7 [facility] Work Phone: Neutrophils/100 WBC (Bld) 77.2 % 47-70 [facility] Work Phone: Potassium [Moles/Vol] 3.7 mmol/L 3.5-5.1 [facility] Work Phone: Protein [Mass/Vol] 6.2 g/dL 6.4-8.2 [facility] Work Phone: Sodium [Moles/Vol] 139 mmol/L 136-145 [facility] Work Phone: WBC (Bld) [#/Vol] 6.3 10*3/uL 4.4-11.0 [facility]: [phone] Blood erythrocytes count (nu mber/volume)on 08-20-2021 RBC (Bld) [#/Vol] 3.72 10*6/uL 4.6-6.2 [facility]: [phone] Blood hemoglobin measurement (mass/volume)on 08-20-2021 Hemoglobin (Bld) [Mass/Vol] 7.8 g/dL 13.0-16.5 [facility] Work Phone: [phone] Blood lymphocytes/100 leukoc yteson 08-20-2021 Lymphocytes/100 WBC (Bld) 12.2 % 19-41 [facility] Work Phone: [phone] Blood monocytes/100 leukocyt eson 08-20-2021 Monocytes/100 WBC (Bld) 6.8 % 0-10 [facility] Work Phone: [phone] Blood platelet mean volumeon 08-20-2021 Platelet mean volume (Bld) [Entitic vol] 9.7 fL 6.2-12.0 [facility] Work Phone: Determination of erythrocyte mean corpuscular volume (MCV)on 08-20-2021 MCV (RBC) [Entitic vol] 72.8 fL 80-94 [facility] Work Phone: Hematocrit Auto (Bld) [Volum e fraction]on 08-20-2021 Hematocrit (Bld) [Volume fraction] 27.1 % 40-54 [facility] Work Phone: Laboratory - Chemistry and C hemistry - challengeon 08-20-2021 ALP [Catalytic activity/Vol] 224 U/L 45-117 [facility] Work Phone: [phone] ALT [Catalytic activity/Vol] 335 U/L 16-61 [facility] Work Phone: [phone] CO2 [Moles/Vol] 27.0 mmol/L 21.0-32.0 [facility] Work Phone: Globulin (S) [Mass/Vol] 3.5 g/dL 2.2-4.2 [facility] Work Phone: [phone] Urea nitrogen/Creatinine [Mass ratio] 11.9 mg/mg 10-20 [facility] Work Phone: [phone] Laboratory - Hematology and Cell countson 08-20-2021 Erythrocyte distribution width (RBC) [Entitic vol] 50.8 fL 35.1-43.9 [facility] Work Phone: [phone] Erythrocyte distribution width (RBC) [Ratio] 19.5 % 11.6-14.6 [facility] Work Phone: [phone] Immature granulocytes/100 WBC (Bld) 0.800 % 0.0-0.9 [facility] Work Phone: [phone] Comment on above: IG% - Immature Granu locytes (promyelocytes, myelocytes and metamyelocytes) > 1% indicates that a LEFT SHIFT is Present. MCH (RBC) [Entitic mass] 21.0 pg 27.0-32.0 [facility] Work Phone: [phone] Nucleated RBC/100 WBC (Bld) [Ratio] 0 % 0-5 [facility] Work Phone: [phone] MCHC Auto (RBC) [Mass/Vol]on 08-20-2021 MCHC (RBC) [Mass/Vol] 28.8 g/dL 32-36 [facility] Work Phone: [phone] Panel Informationon 08-20 Estimated Creatinine Clearance Calc 63.96 ml/min [facility] Work Phone: [phone] Estimated GFR (MDRD) Amer 93 mL/min >60 [facility] Work Phone: [phone] Comment on above: GFR Calc Estimated GFR (MDRD) Non-Af Amer 77 mL/min >60 [facility] Work Phone: [phone] Comment on above: Non- GFR Calc Platelets bldon 08-20-2021 Platelets (Bld) [#/Vol] 409 10*3/uL 150-450 [facility] Work Phone: [phone] Serum or plasma albumin luis urement (mass/volume)on 08-20-2021 Albumin [Mass/Vol] 2.7 g/dL 3.2-5.0 [facility] Work Phone: [phone] Serum or plasma albumin/glob ulin mass ratioon 08-20-2021 Albumin/Globulin [Mass ratio] 0.8 {ratio} 0.9-2.4 [facility] Work Phone: Serum or plasma calcium luis urement (mass/volume)on 08-20-2021 Calcium [Mass/Vol] 7.9 mg/dL 8.5-10.1 [facility] Work Phone: Serum or plasma creatinine m easurement (mass/volume)on 08-20-2021 Creatinine [Mass/Vol] 1.01 mg/dL 0.70-1.30 [facility] Work Phone: Comment on above: The validity of the calculated GFR & GFRAA in patients over 70 years has not been determined. Clinical correlation is essential. Serum or plasma urea nitroge n measurement (mass/volume)on 08-20-2021 Urea nitrogen [Mass/Vol] 12 mg/dL 7-18 [facility] Work Phone: [phone] Thin prep Papanicolaou smear with manual screeningon 08-20-2021 Thin prep Papanicolaou smear with manual screening 150 U/L 15-37 [facility] Work Phone: Thin prep Papanicolaou smear with manual screening 5 5-15 [facility] Work Phone: [phone] Laboratory - Coagulationon 0 08-19-2021 aPTT Coag (Bld) [Time] 37.1 s 24.1-36.2 [facility] Work Phone: No Panel Informationon 08-19 Troponin I High Sensitivity 15 pg/mL 3.0-78.0 [facility] Work Phone: Comment on above: Please Note: New [place] t Units and Gender Specific Reference Ranges. For more information see Policy Stat Procedure [place] High Sensitivity Troponin (TNIH) and attachments. Whole blood hemoglobin A1c/t otal hemoglobin ratio (mass fraction)on 08-19-2021 HbA1c (Bld) [Mass fraction] 6.0 % 3.8-5.6 [facility] Work Phone: Comment on above: Normal < 5.7 % Predi abetic 5.7 - 6.4 % Diabetic >or= 6.5 % Please note range changes. Blood manual differential co mment interpretation (narrative result)on 08-18-2021 Manual differential comment Ghassan (Bld) [Interp] SCANNED [facility] Work Phone: Comment on above: LYMPHOPENIA NOTED Direct bilirubinon Bilirubin.direct [Mass/Vol] 0.89 mg/dL 0.00-0.30 [facility] Work Phone: Laboratory - Chemistry and C hemistry - challengeon 08-18-2021 Lipase [Catalytic activity/Vol] 134 U/L 73-393 [facility] Work Phone: Absolute lymphocyte counton 08-12-2021 Lymphocytes Auto (Unsp spec) [#/Vol] 0.44 10*3/uL 0.83-4.51 [facility] Work Phone: Basophil percentageon 2021 Basophils/100 WBC (Bld) 0.6 % 0-1 [facility] Work Phone: Bilirubin [Mass/Vol] 0.30 mg/dL 0.20-1.00 [facility] Work Phone: Comment on above: For patients on eltr ombopag therapy, use of Dimension [place] TBIL is not recommended. Chloride [Moles/Vol] 101 mmol/L 98-107 [facility] Work Phone: Eosinophils/100 WBC (Bld) 0.0 % 0-5 [facility] Work Phone: Glucose [Mass/Vol] 162 mg/dL 74-106 [facility] Work Phone: Comment on above: Fasting Glucose resu lt greater than or equal to 126 mg/dL suggests DIABETES MELLITUS per A.D.A. criteria. Neutrophils (Bld) [#/Vol] 9.7 10*3/uL 2.0-7.7 [facility] Work Phone: Neutrophils/100 WBC (Bld) 93.3 % 47-70 [facility] Work Phone: Potassium [Moles/Vol] 3.8 mmol/L 3.5-5.1 [facility] Work [facility]: Protein [Mass/Vol] 8.1 g/dL 6.4-8.2 [facility] Work Phone: Sodium [Moles/Vol] 135 mmol/L 136-145 [facility] Work Phone: WBC (Bld) [#/Vol] 10.4 10*3/uL 4.4-11.0 [facility] Work Phone: Blood erythrocytes count (nu mber/volume)on 08-12-2021 RBC (Bld) [#/Vol] 4.84 10*6/uL 4.6-6.2 [facility] Work Phone: Blood hemoglobin measurement (mass/volume)on 08-12-2021 Hemoglobin (Bld) [Mass/Vol] 10.4 g/dL 13.0-16.5 [facility] Work Phone: Blood lymphocytes/100 leukoc yteson 08-12-2021 Lymphocytes/100 WBC (Bld) 4.2 % 19-41 [facility] Work Phone: Blood monocytes/100 leukocyt eson 08-12-2021 Monocytes/100 WBC (Bld) 1.4 % 0-10 [facility] Work Phone: Blood platelet mean volumeon 08-12-2021 Platelet mean volume (Bld) [Entitic vol] 10.3 fL 6.2-12.0 [facility] Work Phone: Determination of erythrocyte mean corpuscular volume (MCV)on 08-12-2021 MCV (RBC) [Entitic vol] 74.8 fL 80-94 [facility] Work Phone: Hematocrit Auto (Bld) [Volum e fraction]on 08-12-2021 Hematocrit (Bld) [Volume fraction] 36.2 % 40-54 [facility] Work Phone: INR in Blood by Coagulation assayon 08-12-2021 INR Coag (Bld) [Relative time] 2.1 {INR} [facility] Work Phone: Laboratory - Chemistry and C hemistry - challengeon 08-12-2021 ALP [Catalytic activity/Vol] 70 U/L 45-117 [facility] Work Phone: ALT [Catalytic activity/Vol] 19 U/L 16-61 [facility] Work Phone: CO2 [Moles/Vol] 26.0 mmol/L 21.0-32.0 [facility] Work Phone: Globulin (S) [Mass/Vol] 3.9 g/dL 2.2-4.2 [facility] Work Phone: Lipase [Catalytic activity/Vol] 46 U/L 73-393 [facility] Work Phone: Urea nitrogen/Creatinine [Mass ratio] 9.0 mg/mg 10-20 [facility] Work Phone: Laboratory - Coagulationon 0 08-12-2021 PT Coag (PPP) [Time] 23.1 s 11.7-14.9 [facility] Work Phone: Laboratory - Hematology and Cell countson 08-12-2021 Anisocytosis Ql (Bld) 1+ [facility] Work Phone: Erythrocyte distribution width (RBC) [Entitic vol] 50.2 fL 35.1-43.9 [facility] Work Phone: Erythrocyte distribution width (RBC) [Ratio] 18.7 % 11.6-14.6 [facility] Work Phone: Immature granulocytes/100 WBC (Bld) 0.500 % 0.0-0.9 [facility] Work Phone: Comment on above: IG% - Immature Granu locytes (promyelocytes, myelocytes and metamyelocytes) > 1% indicates that a LEFT SHIFT is Present. MCH (RBC) [Entitic mass] 21.5 pg 27.0-32.0 [facility] Work Phone: Nucleated RBC/100 WBC (Bld) [Ratio] 0 % 0-5 [facility] Work Phone: [phone] MCHC Auto (RBC) [Mass/Vol]on 08-12-2021 MCHC (RBC) [Mass/Vol] 28.7 g/dL 32-36 [facility] Work Phone: No Panel Informationon 08-12 Estimated Creatinine Clearance Calc 58.20 ml/min [facility] Work Phone: Estimated GFR (MDRD) Amer 84 mL/min >60 [facility] Work Phone: Comment on above: GFR Calc Estimated GFR (MDRD) Non-Af Amer 69 mL/min >60 [facility] Work Phone: Comment on above: Non- GFR Calc Platelets bldon 08-12-2021 Platelets (Bld) [#/Vol] 401 10*3/uL 150-450 [facility] Work Phone: Serum or plasma albumin luis urement (mass/volume)on 08-12-2021 Albumin [Mass/Vol] 4.2 g/dL 3.2-5.0 [facility] Work Phone: [phone] Serum or plasma albumin/glob ulin mass ratioon 08-12-2021 Albumin/Globulin [Mass ratio] 1.1 {ratio} 0.9-2.4 [facility] Work Phone: [phone] Serum or plasma calcium luis urement (mass/volume)on 08-12-2021 Calcium [Mass/Vol] 9.4 mg/dL 8.5-10.1 [facility] Work Phone: [phone] Serum or plasma creatinine m easurement (mass/volume)on 08-12-2021 Creatinine [Mass/Vol] 1.11 mg/dL 0.70-1.30 [facility] Work Phone: Comment on above: The validity of the calculated GFR & GFRAA in patients over 70 years has not been determined. Clinical correlation is essential. Serum or plasma urea nitroge n measurement (mass/volume)on 08-12-2021 Urea nitrogen [Mass/Vol] 10 mg/dL 7-18 [facility] Work Phone: Thin prep Papanicolaou smear with manual screeningon 08-12-2021 Thin prep Papanicolaou smear with manual screening 1+ [facility] Work Phone: Thin prep Papanicolaou smear with manual screening 15 U/L 15-37 [facility] Work Phone: Thin prep Papanicolaou smear with manual screening 8 5-15 [facility] Work Phone: CNCOon 02-11-2021 CNCO Letter Text Normal [facility] CNPNon 02-11-2021 CNPN Telephone (SPAGWO) PEDRO PABLO SIERRA ([id number]) 1950 M Date Time Provider Department 02/11/21 [...] [J43.9] - COMPOUNDED PRESCRIPTION Aerosol supplies Dx:J44.1 NPI#[id number] - ipratropium-albuterol (DUONEB) 0.5 mg-3 mg(2.5 mg [...] AND FOLLOW-UP (more content not included)... Normal [facility] XR Femur - left AP and Later lonny 11-11-2020 IMPRESSION: 1. No radiographic evidence of acute osseous abnormality. 2. Atherosclerotic disease. 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 2. Atheros[address] disease. Street Light Repairer Helper: SHANELL Transcribe Date/Time: Nov 11 2020 10:50A Dictated by : RONALD COLUNGA MD This examination was interpreted and the report reviewed and electronically signed by: RONALD COLUNGA MD on Nov 11 2020 10:53AM EST [facility] Radiology Study observation (narrative) [facility] XR Femur - left AP and Later alOrdered By: Ccf Provider on 11-11-2020 [facility] CBC and Differentialon 04-10 Abs Baso 0.10 k/uL Normal <0.11 [facility] Abs Rapides 0.44 k/uL Normal <0.87 [facility] Abs Neut 4.50 k/uL Normal 1.45-7.50 [facility] Absolute nRBC <0.01 Normal <0.01 [facility] Basophils/100 WBC (Bld) 1.4 % Normal [facility] DTYPE Auto Diff Normal [facility] Eosinophils (Bld) [#/Vol] 0.06 10*3/uL Normal <0.46 [facility] Eosinophils/100 WBC (Bld) 0.9 % Normal [facility] Erythrocyte distribution width (RBC) [Ratio] 21.0 % High 11.5-15.0 [facility] Hematocrit (Bld) [Volume fraction] 39.7 % Normal 39.0-51.0 [facility] Hemoglobin (Bld) [Mass/Vol] 11.3 g/dL Low 13.0-17.0 [facility] Lymphocytes (Bld) [#/Vol] 1.81 10*3/uL Normal 1.00-4.00 [facility] Lymphocytes/100 WBC (Bld) 26.2 % Normal [facility] MCH (RBC) [Entitic mass] 21.6 pG Low 26.0-34.0 [facility] MCHC (RBC) [Mass/Vol] 28.5 g/dL Low 30.5-36.0 [facility] MCV (RBC) [Entitic vol] 76.1 fL Low 80.0-100.0 [facility] Monocytes/100 WBC (Bld) 6.4 % Normal [facility] Neutrophils/100 WBC (Bld) 65.1 % Normal [facility] NRBCs 0.0 /100 WBC Normal 0 [facility] Platelet mean volume (Bld) [Entitic vol] 9.9 fL Normal 9.0-12.7 [facility] Platelets (Bld) [#/Vol] 302 10*3/uL Normal 150-400 [facility] RBC (Bld) [#/Vol] 5.22 10*6/uL Normal 4.20-6.00 [facility] WBC (Bld) [#/Vol] 6.91 10*3/uL Normal 3.70-11.[address] [facility] [address] BRAIN WO IVCONon 04-10-20 CT BRAIN WO IVCON * * *Final Report* * * DATE OF EXAM: Apr 10 2020 3:59PM [facility] 0504 - CT BRAIN WO IVCON / [...] base and imaged soft tissues are unremarkable. Tire Technician (topogram) images: No additional findings. IMPRESSION: NO CT EVIDENCE OF ACUTE INTRACRANIAL PROCESS. Street Light Repairer Helper: SHANELL Transcribe Date/Time: Apr 10 2020 4:01P Dictated by : REBECCA BRYAN MD This examination was interpreted and the report reviewed and electronically signed by: REBECCA BRYAN MD on Apr 10 2020 4:04PM EST [id number] Normal [facility] Comp Metabolic Panelon 04-10 Albumin [Mass/Vol] 5.2 g/dL High 3.9-4.9 [facility] ALP [Catalytic activity/Vol] 65 U/L Normal 38-113 [facility] ALT [Catalytic activity/Vol] 19 U/L Normal 10-54 [facility] Anion gap [Moles/Vol] 10 mmol/L Normal 9-18 [facility] AST [Catalytic activity/Vol] 17 U/L Normal 14-40 [facility] Bilirubin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 LE redo 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 EDUCATION TEACHER endarterectomy, L profundoplasty, iliac stenting on 10/08/19 Relevant Past Medical History: S/p L femoral endarterectomy/aoroili ac stenting Patient Report: Pt agreeable to participate in therapy session Home Environment Patient Lives With: Self/Alone Assistance Available: legal intern Entry To Home: Stairs;Other: See Comment(stair lift) [...] October 13, 2019 TIME: 1:34 PM Normal [facility] Basic Metabolic Panlon 10-11 Anion gap [Moles/Vol] 11 mmol/L Normal 9-18 [facility] Comment on above: Performed By: #### C BC, PT, BMP ####[place] [phone] Calcium [Mass/Vol] 8.1 mg/dL Low 8.5-10.5 [facility] Comment on above: Performed By: #### C BC, PT, BMP ####[place] [phone] Chloride [Moles/Vol] 98 mmol/L Normal 98-110 [facility] Comment on above: Performed By: #### C BC, PT, BMP ####[place] [phone] CO2 [Moles/Vol] 26 mmol/L Normal 23-32 [facility] Comment on above: Performed By: #### C BC, PT, BMP ####[place] [phone] Creatinine [Mass/Vol] 0.64 mg/dL Low 0.70-1.40 [facility] Comment on above: Performed By: #### C BC, PT, BMP ####[place] [phone] eGFR- Amer. >60 Normal >60 [facility] Comment on above: Performed By: #### C BC, PT, BMP ####[place] [phone] GFR/1.73 sq M predicted among non-blacks MDRD (S/P/Bld) [Vol rate/Area] mL/min/{1.73_m2} Normal >60 [facility] Comment on above: Performed By: #### C BC, PT, BMP ####[place] [phone] Glucose [Mass/Vol] 151 mg/dL High 65-100 [facility] Comment on above: Performed By: #### C BC, PT, BMP ####[place] [phone] [place] [phone] Potassium [Moles/Vol] 3.6 mmol/L Normal 3.5-5.0 [facility] Comment on above: Performed By: #### C BC, PT, BMP ####[place] [phone] Sodium [Moles/Vol] 135 mmol/L Normal 135-146 [facility] Comment on above: Performed By: #### C BC, PT, BMP ####[place] [phone] Urea nitrogen [Mass/Vol] 8 mg/dL Low 10-25 [facility] Comment on above: Performed By: #### C BC, PT, BMP ####[place] [phone] CASE MANAGEMon 10-12-2019 CASE MANAGEM HNO ID: [id number] Author: Carly Hutchison) SEYMOUR Man Service: Case Management Author Type: Registered Nurse Type: Care Mgt Progress Note Filed: 10/12/2019 12:39 PM Note Text: CARE MANAGEMENT PROGRESS NOTE SERVICE DATE: 10/12/2019 SERVICE TIME: 1230 LOS: 4 days Needs Prior to Discharge: To Be Determined Clinicals faxed to [facility] SIGNATURE: Carly Man RN,BSN PATIENT NAME: Pedro Pablo Sierra DATE: October 12, 2019 TIME: 12:38 PM PAGER/CONTACT #: [phone] [facility] CASE MANAGEM HNO ID: [id number] Author: Carly Hutchison) Donovan RN Service: Case [...] 12, 2019 TIME: 10:14 AM PAGER/CONTACT #: [phone] Normal [facility] CBCon 10-12-2019 Erythrocyte distribution width (RBC) [Ratio] 16.0 % High 11.5-15.0 [facility] Comment on above: Performed By: #### C BC, PT, BMP ####[place] [phone] Hematocrit (Bld) [Volume fraction] 29.3 % Low 39.0-51.0 [facility] Comment on above: Performed By: #### C LARRY, PT, BMP ####[place] [phone] Hemoglobin (Bld) [Mass/Vol] 9.7 g/dL Low 13.0-17.0 [facility] Comment on above: Performed By: #### C BC, PT, BMP ####[place] [phone] MCH (RBC) [Entitic mass] 30.3 pG Normal 26.0-34.0 [facility] Comment on above: Performed By: #### C BC, PT, BMP ####[place] [phone] MCHC (RBC) [Mass/Vol] 33.1 g/dL Normal 30.5-36.0 [facility] Comment on above: Performed By: #### C BC, PT, BMP ####[address] [phone] MCV (RBC) [Entitic vol] 91.6 fL Normal 80.0-100.0 [facility] Comment on above: Performed By: #### C BC, PT, BMP ####[address] [phone] Platelet mean volume (Bld) [Entitic vol] 10.2 fL Normal 9.0-12.7 [facility] Comment on above: Performed By: #### C BC, PT, BMP ####[place] [phone] Platelets (Bld) [#/Vol] 173 10*3/uL Normal 150-400 [facility] Comment on above: Performed By: #### C BC, PT, BMP ####[place] [phone] RBC (Bld) [#/Vol] 3.20 10*6/uL Low 4.20-6.00 [facility] Comment on above: Performed By: #### C BC, PT, BMP ####[place] [phone] WBC (Bld) [#/Vol] 5.98 10*3/uL Normal 3.70-11.00 [facility] Comment on above: Performed By: #### C BC, PT, BMP ####[place] [phone] NURSING PROGon 10-12-2019 NURSING PROG HNO ID: [id number] Author: Daphney (Rn) SEYMOUR Baron Service: Nursing Author Type: Registered Nurse Type: Nursing Progress Note Filed: 10/12/2019 4:25 PM Note Text: Nursing Progress Note Patient Name: Pedro Pablo Sierra Patient Location: [facility]/ __ Daily Note: 0900: Pt up [...] 1130: Pt assisted to bathroom with nursing staffing coordinator and walker. Pt was able to ambulate from bathroom to bed using walker with standby assist. 1610: Incision to left groin oozing serosang drainage. Gown saturated and needed to be changed. Abd and paper tape applied to cover and collect drainage. Pt c/o pain to left groin, 01/26. Medicated with 10mg po oxycodone. This note was completed by: Daphney Baron RN [facility] PROGRESSon 10-12-2019 PROGRESS HNO ID: [id number] Author: Elly (Binu Brown Service: Vascular Surgery [...] patient (fl,oh) 10/08/19 1645 pneumatic compression stockings (ri,oh) VTE Prophylaxis: on AC ALLERGIES No Known [...] w/ rest pain and is s/p L EARLY EDUCATION TEACHER EA w/ bovine patch, L RADHA and EIA thrombectomy, L CI and EI stenting 10/07 c/b thrombosis s/p : EIA to EARLY EDUCATION TEACHER bypass graft w. Ringed PTFE 10/09. Plan: [...] CRISPIN stenting on 10/23, UC, CAD previous NE, DM, HTN, HLD, COPD Overall Course: 63 [...] and weekends, please contact the General Surgery District Manager In Training pager, [phone] Normal [facility] Protimeon 10-12-2019 PT Coag (PPP) [Time] 15.6 s High 9.7-13.0 [facility] Comment on above: Performed By: #### C BC, PT, BMP ####[facility] [place], [place] [phone] PT Coag (PPP) [Time] 1.5 s High 0.9-1.3 [facility] Comment on above: Result [...] Performed By: #### C LARRY, PT, BMP ####[facility] [place], [place] [phone] ANES POSTPROC EVALon 020 ANES POSTPROC EVAL HNO ID: [id number] Author: Cassie Zavala Service: ? Author Type: [...] October 11, 2019 TIME: 7:41 AM CSN: [id number] Normal [facility] Basic Metabolic Panlon 10-10 Anion gap [Moles/Vol] 9 mmol/L Normal 9-18 [facility] Comment on above: Performed By: #### C LARRY, BMP, MG1, PHOS ####[facility] [place], [place] [phone] Calcium [Mass/Vol] 7.7 mg/dL Low 8.5-10.5 [facility] Comment on above: Performed By: #### C BC, BMP, MG1, PHOS ####[phone] Chloride [Moles/Vol] 101 mmol/L Normal 98-110 [facility] Comment on above: Performed By: #### C BC, BMP, MG1, PHOS ####[place] [phone] CO2 [Moles/Vol] 26 mmol/L Normal 23-32 [facility] Comment on above: Performed By: #### C BC, BMP, MG1, PHOS ####[place] [phone] Creatinine [Mass/Vol] 0.63 mg/dL Low 0.70-1.40 [facility] Comment on above: Performed By: #### C BC, BMP, MG1, PHOS ####[place] [phone] eGFR- Amer. >60 Normal >60 [facility] Comment on above: Performed By: #### C BC, BMP, MG1, PHOS ####[place] [phone] GFR/1.73 sq M predicted among non-blacks MDRD (S/P/Bld) [Vol rate/Area] mL/min/{1.73_m2} Normal >60 [facility] Comment on above: Performed By: #### C BC, BMP, MG1, PHOS ####[place] [phone] Glucose [Mass/Vol] 107 mg/dL High 65-100 [facility] Comment on above: Performed By: #### C BC, BMP, MG1, PHOS ####[place] [phone] Potassium [Moles/Vol] 3.9 mmol/L Normal 3.5-5.0 [facility] Comment on above: Performed By: #### C BC, BMP, MG1, PHOS ####[facility] [place], [place] [phone] Sodium [Moles/Vol] 136 mmol/L Normal 135-146 [facility] Comment on above: Performed By: #### C BC, BMP, MG1, PHOS ####[place] [id number] [place], [place] [phone] Urea nitrogen [Mass/Vol] 8 mg/dL Low 10-25 [facility] Comment on above: Performed By: #### C BC, BMP, MG1, PHOS ####[place] [id number] [place], [place] [phone] CASE MGT INIT ASSESon 2019 CASE MGT INIT [facility] HNO ID: [id number] Author: Bri Hutchison) SEYMOUR Swann Service: Case Management Author Type: Registered Nurse Type: Care Mgt Initial Assessment Filed: 10/11/2019 2:43 PM Note Text: CARE MANAGEMENT PROGRESS NOTE SERVICE DATE: 10/11/2019 SERVICE TIME: 2:38 PM LOS: 3 days [place] of Choice Given: Yes Level of Care Discussed: Home Care Financial Disclosure Provided: Yes Financial Disclosure Comments: discussed Needs Prior to Discharge: To Be Determined;Home Care Order CM discussed with pt discharge planning. pt has his home set up for his needs with elevator and refusing rehab at this time due to Covid 19 risks. Pt was active with [facility] for nurse visit and prefers to continue. CM made referral via ascripts, pt will need F2F for PT/OT/SN at d/c. CM flagged weekend CM staff for potential d/c this weekend and will need AVS faxed at d/c to [phone]. CM to follow as needed. SIGNATURE: Bri Swann RN,BSN PATIENT NAME: Pedro Pablo Sierra DATE: October 11, 2019 TIME: 2:38 PM PAGER/CONTACT #: [phone] Normal [facility] CBCon 10-11-2019 Erythrocyte distribution width (RBC) [Ratio] 15.8 % High 11.5-15.0 [facility] Comment on above: Performed By: #### C BC, BMP, MG1, PHOS ####[place] [phone] Hematocrit (Bld) [Volume fraction] 27.2 % Low 39.0-51.0 [facility] Comment on above: Performed By: #### C BC, BMP, MG1, PHOS ####[place] [phone] Hemoglobin (Bld) [Mass/Vol] 8.9 g/dL Low 13.0-17.0 [facility] Comment on above: Performed By: #### C BC, BMP, MG1, PHOS ####[place] [phone] MCH (RBC) [Entitic mass] 29.4 pG Normal 26.0-34.0 [facility] Comment on above: Performed By: #### C BC, BMP, MG1, PHOS ####[place] [phone] MCHC (RBC) [Mass/Vol] 32.7 g/dL Normal 30.5-36.0 [facility] Comment on above: Performed By: #### C BC, BMP, MG1, PHOS ####[place] [phone] MCV (RBC) [Entitic vol] 89.8 fL Normal 80.0-100.0 [facility] Comment on above: Performed By: #### C BC, BMP, MG1, PHOS ####[place] [phone] Platelet mean volume (Bld) [Entitic vol] 9.9 fL Normal 9.0-12.7 [facility] Comment on above: Performed By: #### C BC, BMP, MG1, PHOS ####[place] [phone] Platelets (Bld) [#/Vol] 140 10*3/uL Low 150-400 [facility] Comment on above: Performed By: #### C BC, BMP, MG1, PHOS ####[place] [phone] [place] [phone] RBC (Bld) [#/Vol] 3.03 10*6/uL Low 4.20-6.00 [facility] Comment on above: Performed By: #### C BC, BMP, MG1, PHOS ####[place] [id number] [place] [phone] WBC (Bld) [#/Vol] 5.78 10*3/uL Normal 3.70-11.00 [facility] Comment on above: Performed By: #### C BC, BMP, MG1, PHOS ####[place] [phone] Magnesiumon 10-11-2019 Magnesium [Mass/Vol] 2.0 mg/dL Normal 1.7-2.6 [facility] Comment on above: Performed By: #### C BC, BMP, MG1, PHOS ####[place] [phone] NURSING PROGon 10-11-2019 NURSING PROG HNO ID: [id number] Author: Briana (Rn) SEYMOUR Hardy Service: ? Author Type: Registered Nurse Type: Nursing Progress Note Filed: 10/11/2019 2:37 PM Note Text: Nursing Progress Note Patient Name: Pedro Pablo Sierra Patient Location: [id number]/-[id number] [id number] __ Daily Note: 0700. Bedside report received from night time nanny RN. Patient is resting comfortably in bed [...] care of patient. 1430. Patient transferred to [facility] via bed on portable O2. All belongings and chart sent with patient. This note was completed by: Briana Hardy RN [facility] PROGRESSon 10-11-2019 PROGRESS HNO ID: [id number] Author: Noman Fish MD Service: Vascular Surgery [...] CRISPIN stenting on 10/23, UC, CAD previous NE, DM, HTN, HLD, COPD Overall Course: 63 year old male with acute onset of BLE pain. Taken to OR for initiation of thrombolysis thru LCIA/TORITO Procedure/Surgeries: 1. Aortogram with bilateral ileofemoral runoff via left brachial artery 2. Left leg angiogram, 3rd order 3. Placement of lysis catheter from distal aorta to left SFA, 20cm treatment zone [facility] 07/02/2014 Thrombectomy Airway Difficulty: NA OR [...] TIME: 7:24 AM PAGER/CONTACT #: See Below [phone] For questions Monday through Monday 6am to 6pm please page Red Team [phone] For questions during nights (6pm - 6am) and weekends, please contact the General Surgery District Manager In Training pager, [phone] [facility] PROGRESS HNO ID: [id number] Author: Rashawn Huntley Service: Critical Care Author [...] CURRENT MEDICATIONS: Medications reviewed. Please refer to [employer] for list of inpatient medications. Current Facility-Administered [...] INTRAVENOUS q 2 H PRN Elly (Res) [place] 25 mcg at 10/11/19 0648 - hyoscyamine [...] tab(s) (PLAVIX) 75 mg ORAL DAILY Roman (Feedlot Manager) [place] 75 mg at 10/10/19 0817 - polyethylene glycol 3350 17 g packet (MIRALAX, GLYCOLAX) 17 g ORAL DAILY PRN Elly (Res) [place] - docusate sodium 100 mg cap(s) (COLACE) 100 mg ORAL BID Elly (Res) [place] 100 mg at 10/10/192202 - budesonide 0.25 mg/2 mL 0.25 mg (PULMICORT) 0.25 mg INHALATION BID Elly (Res) [place] 0.25 mg at 10/10/192046 And - ipratropium-albuterol 3 mL nebulizer solution (DUONEB) 3 mL INHALATION QID Elly (Res) [place] 3 mL at 10/10/192046 - NaCl 0.9% [...] hospitalization are listed below. Plese refer to [facility] for a full listing of cultures obtained during this hospitalization. ? N/A DIAGNOSTIC TESTS: The following diagnostic tests/findings were reviewed: ? Most recent labs and imaging results. MOST RECENT CXR FINDINGS: Bibasilar atelectasis. OPERATIVE PROCEDURE(S): Date of surgery: 10/08/19 Procedure: Left common EARLY EDUCATION TEACHER endarterectomy with bovine path Left profundoplasty Left iliac stenting X4 (I-Cast X2, Jessica X2) Multiple angiograms with angioplasty Surgeon: Dr. May Date of surgery: 10/10/19 Procedure: Left EIA to EARLY EDUCATION TEACHER bypass with 7mm ringed PTFE end to end proximally to the previously placed bovine patch end to side distally. Completion angiogram Retrograde open RADHA angioplasty with 8 x 80 mustang balloon. Open thrombectomy L iliac artery by leg incision. Surgeon: Dr. May Assessment/Plan 69 year old male with CAD (EF 60% on 09/12/19), NE in 2005, HTN, HLD, COPD, PJ(on 2L O2 nocturnal), DM, GERD, diverticulosis, anxiety, depression, lupus anticoagulant disorder on Coumadin, chronic low back pain, aortoiliac and left ileofemoral PAD s/p multiple interventions including left femoral endarterectomy/aortoil iac stenting in 10/2013 who underwent a 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 May on 10/08/19. She is admitted to SICU post-operatively for neurovascular checks and close hemodynamic monitoring. Developed L EARLY EDUCATION TEACHER occlusion POD2 and taken back to OR on 10/10/19 for left groin hematoma evacuation, left EIA to EARLY EDUCATION TEACHER PTFE bypass, left liac thrombectomy. Transferred to [...] -- 10/08/19 1700 activity - mobilize patient ([place], [place]) 10/08/19 1645 pneumatic compression stockings ([place], [place]) VTE Prophylaxis: Contraindicated elevated risk of bleeding To be seen and discussed on rounds with SICU staff: Dr. Huntley ICU Checklist --------- --- VTE Prophylaxis: SIGNATURE: Misael Jeter MD PATIENT NAME: Pedro Pablo Sierra DATE: October 11, 2019 TIME: 6:40 AM PAGER/CONTACT #: [phone] [facility] STAFF PHYSICIAN NOTE OF PERSONAL [...] HTN GERD ? Procedure/Surgeon 10/08/19 S/P L EARLY EDUCATION TEACHER endarterectomy with bovine path, profundoplasty and iliac [...] DO 11:08 AM October 11, 2019 Normal [facility] Phosphoruson 10-11-2019 Phosphate [Mass/Vol] 1.9 mg/dL Low 2.5-4.5 [facility] Comment on above: Performed By: #### C BC, BMP, MG1, PHOS ####[place] [id number] [place], [place] [phone] Protimeon 10-11-2019 PT Coag (PPP) [Time] 10.9 s Normal 9.7-13.0 [facility] Comment on above: Performed By: #### P T ####[place] [id number] [place], [place] [phone] PT Coag (PPP) [Time] 1.0 s Normal 0.9-1.3 [facility] Comment on above: Result [...] Chest 2012, 141:7S-47S Gio KENNY et al. [facility] 2017, 70: 252-289 Performed By: #### P T ####[place] [id number] [place], [place] [phone] THERAPY NTon 10-11-2019 THERAPY NT HNO ID: [id number] Author: Gini (Pt) Eugenia Melvin Service: Physical Therapy Author Type: Physical Therapist Type: Therapy (PT/OT/Speech/Resp) Filed: 10/11/2019 10:43 AM Note Text: Physical Therapy Treatment SERVICE DATE: 10/11/2019 SERVICE TIME: 0935 to 1020 ROOM: [place] [address] Recommended Discharge Disposition: Home PT Anticipated Discharge [...] at Start of Session: OOB in Chair;Call Nelsno in Reach;Chair Alarm Patient Disposition at End [...] Diagnosis: Reduced mobility-other Interventions Provided: Therapeutic Activity (73569);Therapeutic Exercise (22507);Gait Training (05628) Therapeutic Exercise (42820) Treatment Minutes: 15 1 unit Skilled Intervention(s): Instruction in therapeutic exercise supine, very gentle with Daisha GOOD. Edu on rationale of exercises. Therapeutic Activity (53476) Treatment Minutes: 20 1 unit Skilled Intervention(s): Instructed patient in supine to sit pushing with upper extremities to sit up Instructed patient in supine to and from sit pushing with upper extremities to sit up Instruction in sit to stand technique with proper hand placement and body positioning at edge of bed/chair Gait Training (09217) Treatment Minutes: 10 1 unit Skilled Intervention(s): Instruction in sequencing, gait pattern and Instruction in correction of gait deviations Total Timed Code Treatment Minutes: 45 Total Treatment Time (minutes): 45 SUBJECTIVE: Current Hospital Course: Chart reviewed and no significant medical updates relevant to therapy were noted Reason for Physical Therapy Consult : PVD s/p L LE redo EARLY EDUCATION TEACHER endarterectomy, L profundoplasty, iliac stenting on 10/08/19 Relevant Past Medical History: S/p L femoral endarterectomy/aoroili ac stenting Patient Report: My Left leg is incredibly sore right now, moving is going to have to be slow. (And it is.) Home Environment Patient Lives With: Self/Alone Assistance Available: legal intern Entry To Home: Stairs;Other: See Comment(stair lift) [...] DATE: October 11, 2019 TIME: 10:40 AM [facility] THERAPY NT HNO ID: [id number] Author: Caitlin Thomas Service: Occupational Therapy Author Type: Occupational Therapist Type: Therapy (PT/OT/Speech/Resp) Filed: 10/11/2019 6:48 AM Note Text: OCCUPATIONAL THERAPY MISSED VISIT SERVICE DATE: 10/11/2019 SERVICE TIME: 0647 to 0647 ROOM: [place] [address] Attempted Treatment. Patient not seen due to Incomplete Orders. Pt is currently on bedrest. Please update activity orders when medically appropriate for participation in Occupational Therapy treatment and out of bed mobility. Thank you. SIGNATURE: Caitlin Thomas OTR/L PATIENT NAME: Pedro Pablo Sierra DATE: October 11, 2019 TIME: 6:47 AM Normal [facility] ABG Complete Eval FOR SEFERINO Kauffman 10-10-2019 Base Excess 1 mmol/L Normal [facility] Comment on above: Result Comment: -3 t o 3 Performed By: #### A BGRTC ####[facility] [place], [place] [phone] Calcium [Mass/Vol] 1.29 mmol/L Normal 1.15-1.35 [facility] Comment on above: Performed By: #### A BGRTC ####[place] [phone] Carboxyhemoglobin,Art 1.0 % Normal <2.0 [facility] Comment on above: Performed By: #### A BGRTC ####[place] [phone] Chloride, Whole Bld FOR WEST USE ONLY 105 mmol/L Normal 98-107 [facility] Comment on above: Performed By: #### A BGRTC ####[place] [phone] CO2 [Moles/Vol] 27 mmol/L Normal 22.0-28.0 [facility] Comment on above: Performed By: #### A BGRTC ####[place] [phone] Glucose [Mass/Vol] 132 mg/dL High 65-100 [facility] Comment on above: Performed By: #### A BGRTC ####[place] [phone] HCO3 (Bld) [Moles/Vol] 26 mmol/L Normal 22-26 [facility] Comment on above: Performed By: #### A BGRTC ####[place] [phone] Hematocrit (Bld) [Volume fraction] 26.3 % Low 42.0-52.0 [facility] Comment on above: Performed By: #### A BGRTC ####[place] [phone] Hemoglobin (Bld) [Mass/Vol] 8.5 g/dL Low 14-18 [facility] Comment on above: Performed By: #### A BGRTC ####[place] [phone] Lactate [Moles/Vol] 1.5 mmol/L Normal 0.4-2.0 [facility] Comment on above: Performed By: #### A BGRTC ####[place] [phone] Methemoglobin 1.4 % Normal 0.4-1.5 [facility] Comment on above: Performed By: #### A BGRTC ####[place] [phone] O2 Administered 21.0 Normal [facility] Comment on above: Performed By: #### A BGRTC ####[place] [phone] Oxygen (Bld) [Partial pressure] 136 mm Hg High 80-100 [facility] Comment on above: Performed By: #### A BGRTC ####[place] [phone] Oxygen (Bld) [Partial pressure] 99 % High 90-98 [facility] Comment on above: Performed By: #### A BGRTC ####[place] [phone] Oxyhemoglobin, Art. 96 % Normal 94-100 [facility] Comment on above: Performed By: #### A BGRTC ####[place] [phone] pCO2 46 mm Hg Normal 35-48 [facility] Comment on above: Performed By: #### A BGRTC ####[place] [phone] pH (Bld) 7.37 [pH] Normal 7.35-7.45 [facility] Comment on above: Performed By: #### A BGRTC ####[phone] PO2FI FOR WEST USE ONLY 648 mmHG High 400-500 F [facility] Comment on above: Performed By: #### A BGRTC ####[place] [phone] Potassium [Moles/Vol] 3.9 mmol/L Normal 3.5-5.0 [facility] Comment on above: Performed By: #### A BGRTC ####[place] [phone] Sodium [Moles/Vol] 137 mmol/L Normal 135-145 [facility] Comment on above: Performed By: #### A BGRTC ####[place] [phone] Base Excess 2 mmol/L Normal [facility] Comment on above: Result Comment: -3 t o 3 Performed By: #### A BGRTC ####[place] [phone] Calcium [Mass/Vol] 1.09 mmol/L Low 1.15-1.35 [facility] Comment on above: Performed By: #### A BGRTC ####[place] [phone] Carboxyhemoglobin,Art 1.3 % Normal <2.0 [facility] Comment on above: Performed By: #### A BGRTC ####[place] [phone] Chloride, Whole Bld FOR WEST USE ONLY 106 mmol/L Normal 98-107 [facility] Comment on above: Performed By: #### A BGRTC ####[place] [phone] CO2 [Moles/Vol] 28 mmol/L Normal 22.0-28.0 [facility] Comment on above: Performed By: #### A BGRTC ####[place] [phone] Glucose [Mass/Vol] 129 mg/dL High 65-100 [facility] Comment on above: Performed By: #### A BGRTC ####[place] [phone] HCO3 (Bld) [Moles/Vol] 27 mmol/L High 22-26 [facility] Comment on above: Performed By: #### A BGRTC ####[place] [phone] Hematocrit (Bld) [Volume fraction] 24.6 % Low 42.0-52.0 [facility] Comment on above: Performed By: #### A BGRTC ####[place] [phone] Hemoglobin (Bld) [Mass/Vol] 7.9 g/dL Low 14-18 [facility] Comment on above: Performed By: #### A BGRTC ####[place] [phone] Lactate [Moles/Vol] 1.1 mmol/L Normal 0.4-2.0 [facility] Comment on above: Performed By: #### A BGRTC ####[place] [phone] Methemoglobin 1.2 % Normal 0.4-1.5 [facility] Comment on above: Performed By: #### A BGRTC ####[place] [phone] O2 Administered 21.0 Normal [facility] Comment on above: Performed By: #### A BGRTC ####[place] [phone] Oxygen (Bld) [Partial pressure] 164 mm Hg High 80-100 [facility] Comment on above: Performed By: #### A BGRTC ####[place] [phone] Oxygen (Bld) [Partial pressure] 99 % High 90-98 [facility] Comment on above: Performed By: #### A BGRTC ####[place] [phone] Oxyhemoglobin, Art. 97 % Normal 94-100 [facility] Comment on above: Performed By: #### A BGRTC ####[place] [phone] pCO2 44 mm Hg Normal 35-48 [facility] Comment on above: Performed By: #### A BGRTC ####[facility] [place] [phone] pH (Bld) 7.40 [pH] Normal 7.35-7.45 [facility] Comment on above: Performed By: #### A BGRTC ####[facility] [place] [phone] PO2FI FOR WEST USE ONLY 781 mmHG High 400-500 F [facility] Comment on above: Performed By: #### A BGRTC ####[facility] [place] [phone] Potassium [Moles/Vol] 3.6 mmol/L Normal 3.5-5.0 [facility] Comment on above: Performed By: #### A BGRTC ####[place] [phone] [place] [phone] Sodium [Moles/Vol] 137 mmol/L Normal 135-145 [facility] Comment on above: Performed By: #### A BGRTC ####[facility] [place] [phone] ALLIED HEALTHon 10-10-2019 ALLIED HEALTH HNO ID: [id number] Author: William Renee (Rt) Service: Radiology Author Type: Customs Director Type: Allied Health Filed: 10/10/2019 6:31 [...] RT Víctor October 10, 2019 6:31 AM [facility] ANES PRE-OPon 10-10-2019 ANES PRE-OP HNO ID: [id number] Author: Joey Sequeira Service: ? Author Type: [...] (+) Hypertension (+) PVD (peripheral vascular disease) ([facility]) (+) s/p left femoral endarterectomy/aortoil iac stenting 10/08/2019 (now with L EARLY EDUCATION TEACHER occlusion) PULMONARY (+) COPD (chronic obstructive pulmonary disease) ([facility]) (+) PJ (obstructive sleep apnea) ANESTHESIA (+) PJ (obstructive sleep apnea) NEURO-PSYCH (+) Headache GI (+) GERD (gastroesophageal reflux disease) Other (+) Anemia due to acute blood loss (Hgb 7.4 this AM; will order 2 units PRBCs) (+) Lupus anticoagulant disorder ([facility]) I - PHYSICAL EVALUATION AIRWAY Patient [...] (iso-osmotic) 100 mL (ANCEF) 2 g INTRAVENOUS District Manager In Training to OR - NaCl 0.9% iv infusion [...] movements. - COMPOUNDED PRESCRIPTION Aerosol supplies Dx:J44.1 NPI#[id number] - ipratropium-albuterol (DUONEB) 0.5 mg-3 mg(2.5 mg [...] October 10, 2019 TIME: 8:21 AM CSN: [id number] Normal [facility] APTTon 10-10-2019 aPTT Coag (Bld) [Time] 25.4 s Normal 23.0-32.4 [facility] Comment on above: Result Comment: Unfr [...] laboratory APTT reagent in use throughout the [facility]. Performed By: #### C BCDIF, PTT, FIBCT, PT ####[facility] [place], [place] [phone] aPTT Coag (Bld) [Time] 126.3 s High 23.0-32.4 [facility] Comment on above: Result Comment: Unfr [...] laboratory APTT reagent in use throughout the [facility]. Called to and read back by: Landry Quintana RN [facility] 10/10/19 Royce Mccormick Performed By: #### C BCDIF, BMP, MG1, PHOS, PTT, PT ####[facility] [place], [place] [phone] aPTT Coag (Bld) [Time] 44.1 s High 23.0-32.4 [facility] Comment on above: Result Comment: Unfr [...] laboratory APTT reagent in use throughout the [facility]. Performed By: #### P TT ####[place] [phone] Basic Metabolic Panlon 10-09 Anion gap [Moles/Vol] 11 mmol/L Normal 9-18 [facility] Comment on above: Performed By: #### C BCDIF, BMP, MG1, PHOS, PTT, PT ####[place] [phone] Calcium [Mass/Vol] 8.0 mg/dL Low 8.5-10.5 [facility] Comment on above: Performed By: #### C BCDIF, BMP, MG1, PHOS, PTT, PT ####[place] [phone] Chloride [Moles/Vol] 103 mmol/L Normal 98-110 [facility] Comment on above: Performed By: #### C BCDIF, BMP, MG1, PHOS, PTT, PT ####[place] [phone] CO2 [Moles/Vol] 24 mmol/L Normal 23-32 [facility] Comment on above: Performed By: #### C BCDIF, BMP, MG1, PHOS, PTT, PT ####[place] [phone] Creatinine [Mass/Vol] 0.68 mg/dL Low 0.70-1.40 [facility] Comment on above: Performed By: #### C BCDIF, BMP, MG1, PHOS, PTT, PT ####[place] [phone] eGFR- Amer. >60 Normal >60 [facility] Comment on above: Performed By: #### C BCDIF, BMP, MG1, PHOS, PTT, PT ####[place] [phone] GFR/1.73 sq M predicted among non-blacks MDRD (S/P/Bld) [Vol rate/Area] mL/min/{1.73_m2} Normal >60 [facility] Comment on above: Performed By: #### C BCDIF, BMP, MG1, PHOS, PTT, PT ####[place] [phone] Glucose [Mass/Vol] 127 mg/dL High 65-100 [facility] Comment on above: Performed By: #### C BCDIF, BMP, MG1, PHOS, PTT, PT ####[place] [phone] Potassium [Moles/Vol] 4.3 mmol/L Normal 3.5-5.0 [facility] Comment on above: Performed By: #### C BCDIF, BMP, MG1, PHOS, PTT, PT ####[place] [phone] Sodium [Moles/Vol] 138 mmol/L Normal 135-146 [facility] Comment on above: Performed By: #### C BCDIF, BMP, MG1, PHOS, PTT, PT ####[place] [phone] Urea nitrogen [Mass/Vol] 9 mg/dL Low 10-25 [facility] Comment on above: Performed By: #### C BCDIF, BMP, MG1, PHOS, PTT, PT ####[place] [phone] Anion gap [Moles/Vol] 8 mmol/L Low 9-18 [facility] Comment on above: Performed By: #### C BC, BMP, MG1, PHOS ####[place] [phone] Calcium [Mass/Vol] 7.9 mg/dL Low 8.5-10.5 [facility] Comment on above: Performed By: #### C BC, BMP, MG1, PHOS ####[place] [phone] Chloride [Moles/Vol] 101 mmol/L Normal 98-110 [facility] Comment on above: Performed By: #### C BC, BMP, MG1, PHOS ####[place] [phone] CO2 [Moles/Vol] 27 mmol/L Normal 23-32 [facility] Comment on above: Performed By: #### C BC, BMP, MG1, PHOS ####[place] [phone] Creatinine [Mass/Vol] 0.69 mg/dL Low 0.70-1.40 [facility] Comment on above: Performed By: #### C BC, BMP, MG1, PHOS ####[place] [phone] eGFR- Amer. >60 Normal >60 [facility] Comment on above: Performed By: #### C BC, BMP, MG1, PHOS ####[place] [phone] GFR/1.73 sq M predicted among non-blacks MDRD (S/P/Bld) [Vol rate/Area] mL/min/{1.73_m2} Normal >60 [facility] Comment on above: Performed By: #### C BC, BMP, MG1, PHOS ####[place] [phone] Glucose [Mass/Vol] 107 mg/dL High 65-100 [facility] Comment on above: Performed By: #### C BC, BMP, MG1, PHOS ####[place] [phone] Potassium [Moles/Vol] 3.8 mmol/L Normal 3.5-5.0 [facility] Comment on above: Performed By: #### C BC, BMP, MG1, PHOS ####[place] [phone] Sodium [Moles/Vol] 136 mmol/L Normal 135-146 [facility] Comment on above: Performed By: #### C BC, BMP, MG1, PHOS ####[phone] Urea nitrogen [Mass/Vol] 11 mg/dL Normal 10-25 [facility] Comment on above: Performed By: #### C BC, BMP, MG1, PHOS ####[phone] CASE MANAGEMon 10-10-2019 CASE MANAGEM HNO ID: [id number] Author: Bri (Rn) SEYMOUR Swann Service: Case [...] 10, 2019 TIME: 4:23 PM PAGER/CONTACT #: [phone] Normal [facility] CBCon 10-10-2019 Erythrocyte distribution width (RBC) [Ratio] 16.0 % High 11.5-15.0 [facility] Comment on above: Performed By: #### C BC, BMP, MG1, PHOS ####[place] [phone] Hematocrit (Bld) [Volume fraction] 23.2 % Low 39.0-51.0 [facility] Comment on above: Performed By: #### C BC, BMP, MG1, PHOS ####[place] [phone] [place] [phone] Hemoglobin (Bld) [Mass/Vol] 7.5 g/dL Low 13.0-17.0 [facility] Comment on above: Performed By: #### C BC, BMP, MG1, PHOS ####[place] [phone] MCH (RBC) [Entitic mass] 30.1 pG Normal 26.0-34.0 [facility] Comment on above: Performed By: #### C BC, BMP, MG1, PHOS ####[place] [phone] MCHC (RBC) [Mass/Vol] 32.3 g/dL Normal 30.5-36.0 [facility] Comment on above: Performed By: #### C BC, BMP, MG1, PHOS ####[place] [phone] MCV (RBC) [Entitic vol] 93.2 fL Normal 80.0-100.0 [facility] Comment on above: Performed By: #### C BC, BMP, MG1, PHOS ####[place] [phone] Platelet mean volume (Bld) [Entitic vol] 9.8 fL Normal 9.0-12.7 [facility] Comment on above: Performed By: #### C BC, BMP, MG1, PHOS ####[place] [phone] Platelets (Bld) [#/Vol] 180 10*3/uL Normal 150-400 [facility] Comment on above: Performed By: #### C BC, BMP, MG1, PHOS ####[place] [phone] RBC (Bld) [#/Vol] 2.49 10*6/uL Low 4.20-6.00 [facility] Comment on above: Performed By: #### C BC, BMP, MG1, PHOS ####[place] [phone] WBC (Bld) [#/Vol] 6.64 10*3/uL Normal 3.70-11.00 [facility] Comment on above: Performed By: #### C BC, BMP, MG1, PHOS ####[place] [phone] CBC and Differentialon 10-09 Abs Baso 0.03 k/uL Normal <0.11 [facility] Comment on above: Performed By: #### C BCDIF, PTT, FIBCT, PT ####[address]10 Abs Rapides 0.69 k/uL Normal <0.87 [facility] Comment on above: Performed By: #### C BCDIF, PTT, FIBCT, PT ####[place] [phone] Abs Neut 5.56 k/uL Normal 1.45-7.50 [facility] Comment on above: Performed By: #### C BCDIF, PTT, FIBCT, PT ####[address]7110 Basophils/100 WBC (Bld) 0.4 % Normal [facility] Comment on above: Performed By: #### C BCDIF, PTT, FIBCT, PT ####[address]7110 Eosinophils (Bld) [#/Vol] 10*3/uL Normal <0.46 [facility] Comment on above: Performed By: #### C BCDIF, PTT, FIBCT, PT ####[address]10 Eosinophils/100 WBC (Bld) 0.3 % Normal [facility] Comment on above: Performed By: #### C BCDIF, PTT, FIBCT, PT ####[place] [phone] Erythrocyte distribution width (RBC) [Ratio] 16.9 % High 11.5-15.0 [facility] Comment on above: Performed By: #### C BCDIF, PTT, FIBCT, PT ####[phone] Hematocrit (Bld) [Volume fraction] 21.7 % Low 39.0-51.0 [facility] Comment on above: Performed By: #### C BCDIF, PTT, FIBCT, PT ####[place] [phone] Hemoglobin (Bld) [Mass/Vol] 7.1 g/dL Low 13.0-17.0 [facility] Comment on above: Performed By: #### C BCDIF, PTT, FIBCT, PT ####[place] [phone] Lymphocytes (Bld) [#/Vol] 1.03 10*3/uL Normal 1.00-4.00 [facility] Comment on above: Performed By: #### C BCDIF, PTT, FIBCT, PT ####[place] [phone] Lymphocytes/100 WBC (Bld) 14.1 % Normal [facility] Comment on above: Performed By: #### C BCDIF, PTT, FIBCT, PT ####[place] [phone] MCH (RBC) [Entitic mass] 29.5 pG Normal 26.0-34.0 [facility] Comment on above: Performed By: #### C BCDIF, PTT, FIBCT, PT ####[place] [phone] MCHC (RBC) [Mass/Vol] 32.7 g/dL Normal 30.5-36.0 [facility] Comment on above: Performed By: #### C BCDIF, PTT, FIBCT, PT ####[place] [phone] MCV (RBC) [Entitic vol] 90.0 fL Normal 80.0-100.0 [facility] Comment on above: Performed By: #### C BCDIF, PTT, FIBCT, PT ####[address] [phone] Monocytes/100 WBC (Bld) 9.4 % Normal [facility] Comment on above: Performed By: #### C BCDIF, PTT, FIBCT, PT ####[place] [phone] Neutrophils/100 WBC (Bld) 75.8 % Normal [facility] Comment on above: Performed By: #### C BCDIF, PTT, FIBCT, PT ####[place] [phone] Platelet mean volume (Bld) [Entitic vol] 10.0 fL Normal 9.0-12.7 [facility] Comment on above: Performed By: #### C BCDIF, PTT, FIBCT, PT ####[place] [phone] Platelets (Bld) [#/Vol] 167 10*3/uL Normal 150-400 [facility] Comment on above: Performed By: #### C BCDIF, PTT, FIBCT, PT ####[place] [phone] RBC (Bld) [#/Vol] 2.41 10*6/uL Low 4.20-6.00 [facility] Comment on above: Performed By: #### C BCDIF, PTT, FIBCT, PT ####[place] [phone] WBC (Bld) [#/Vol] 7.33 10*3/uL Normal 3.70-11.00 [facility] Comment on above: Performed By: #### C BCDIF, PTT, FIBCT, PT ####[place] [phone] Abs Baso 0.04 k/uL Normal <0.11 [facility] Comment on above: Performed By: #### C BCDIF, BMP, MG1, PHOS, PTT, PT ####[place] [phone] Abs Rapides 0.56 k/uL Normal <0.87 [facility] Comment on above: Performed By: #### C BCDIF, BMP, MG1, PHOS, PTT, PT ####[place] [address] Abs Neut 5.40 k/uL Normal 1.45-7.50 [facility] Comment on above: Performed By: #### C BCDIF, BMP, MG1, PHOS, PTT, PT ####[place] [address] Basophils/100 WBC (Bld) 0.6 % Normal [facility] Comment on above: Performed By: #### C BCDIF, BMP, MG1, PHOS, PTT, PT ####[place] [address] DTYPE Auto Diff Normal [facility] Comment on above: Performed By: #### C BCDIF, PTT, FIBCT, PT ####[place] [address] Performed By: #### C BCDIF, BMP, MG1, PHOS, PTT, PT ####[place] [address] Eosinophils (Bld) [#/Vol] 0.06 10*3/uL Normal <0.46 [facility] Comment on above: Performed By: #### C BCDIF, BMP, MG1, PHOS, PTT, PT ####[place] [address] Eosinophils/100 WBC (Bld) 0.8 % Normal [facility] Comment on above: Performed By: #### C BCDIF, BMP, MG1, PHOS, PTT, PT ####[place] [address] Erythrocyte distribution width (RBC) [Ratio] 16.6 % High 11.5-15.0 [facility] Comment on above: Performed By: #### C BCDIF, BMP, MG1, PHOS, PTT, PT ####[place] [phone] Hematocrit (Bld) [Volume fraction] 24.9 % Low 39.0-51.0 [facility] Comment on above: Performed By: #### C BCDIF, BMP, MG1, PHOS, PTT, PT ####[place] [phone] Hemoglobin (Bld) [Mass/Vol] 8.3 g/dL Low 13.0-17.0 [facility] Comment on above: Performed By: #### C BCDIF, BMP, MG1, PHOS, PTT, PT ####[place] [phone] Lymphocytes (Bld) [#/Vol] 1.07 10*3/uL Normal 1.00-4.00 [facility] Comment on above: Performed By: #### C BCDIF, BMP, MG1, PHOS, PTT, PT ####[place] [phone] Lymphocytes/100 WBC (Bld) 15.0 % Normal [facility] Comment on above: Performed By: #### C BCDIF, BMP, MG1, PHOS, PTT, PT ####[place] [phone] MCH (RBC) [Entitic mass] 30.3 pG Normal 26.0-34.0 [facility] Comment on above: Performed By: #### C BCDIF, BMP, MG1, PHOS, PTT, PT ####[place] [phone] MCHC (RBC) [Mass/Vol] 33.3 g/dL Normal 30.5-36.0 [facility] Comment on above: Performed By: #### C BCDIF, BMP, MG1, PHOS, PTT, PT ####[place] [phone] MCV (RBC) [Entitic vol] 90.9 fL Normal 80.0-100.0 [facility] Comment on above: Performed By: #### C BCDIF, BMP, MG1, PHOS, PTT, PT ####[place] [phone] Monocytes/100 WBC (Bld) 7.9 % Normal [facility] Comment on above: Performed By: #### C BCDIF, BMP, MG1, PHOS, PTT, PT ####[place] [phone] Neutrophils/100 WBC (Bld) 75.7 % Normal [facility] Comment on above: Performed By: #### C BCDIF, BMP, MG1, PHOS, PTT, PT ####[place] [phone] Platelet mean volume (Bld) [Entitic vol] 9.8 fL Normal 9.0-12.7 [facility] Comment on above: Performed By: #### C BCDIF, BMP, MG1, PHOS, PTT, PT ####[place] [phone] Platelets (Bld) [#/Vol] 173 10*3/uL Normal 150-400 [facility] Comment on above: Performed By: #### C BCDIF, BMP, MG1, PHOS, PTT, PT ####[place] [phone] RBC (Bld) [#/Vol] 2.74 10*6/uL Low 4.20-6.00 [facility] Comment on above: Performed By: #### C BCDIF, BMP, MG1, PHOS, PTT, PT ####[place] [phone] WBC (Bld) [#/Vol] 7.13 10*3/uL Normal 3.70-11.00 [facility] Comment on above: Performed By: #### C BCDIF, BMP, MG1, PHOS, PTT, PT ####[place] [phone] Fibrinogenon 10-10-2019 Fibrinogen 410 mg/dL High 200-400 [facility] Comment on above: Performed By: #### C BCDIF, PTT, FIBCT, PT ####[place] [phone] HISTORY PHYSICALon 0 HISTORY PHYSICAL HNO ID: [id number] Author: Ryan May MD Service: Vascular Surgery Author Type: Physician Type: HANDP Filed: 10/10/2019 9:03 AM Note Text: As a result of the 09/03/19 order by [facility] Director Libby Harris M.D. to cancel non-essential surgeries that would use PPE, unless special criteria are met, I have reviewed the clinical record for this patient and have determined that the scheduled procedure meets the criteria to go forward because there is a threat of permanent dysfunction of an extremity or organ system. Possible thrombosis of the left EARLY EDUCATION TEACHER graft. Possible hematoma. Plan to reexplore, evacuate hematoma, possible ileo-femoral bypass vs fem-fem bypass. Jermaine May MD Normal [facility] Hematocriton 10-10-2019 Hematocrit (Bld) [Volume fraction] 23.1 % Low 39.0-51.0 [facility] Comment on above: Performed By: #### H CT, HGB ####[place] [phone] Hemoglobinon 10-10-2019 Hemoglobin (Bld) [Mass/Vol] 7.4 g/dL Low 13.0-17.0 [facility] Comment on above: Performed By: #### H CT, HGB ####[place] [phone] Magnesiumon 10-10-2019 Magnesium [Mass/Vol] 1.8 mg/dL Normal 1.7-2.6 [facility] Comment on above: Performed By: #### C BCDIF, BMP, MG1, PHOS, PTT, PT ####[address], [place] [phone] Magnesium [Mass/Vol] 2.0 mg/dL Normal 1.7-2.6 [facility] Comment on above: Performed By: #### C BC, BMP, MG1, PHOS ####[facility] [place], [place] [phone] NURSING PROGon 10-10-2019 NURSING PROG HNO ID: [id number] Author: Yeimi NessRn) SEYMOUR Wong Service: ? Author Type: Registered Nurse Type: Nursing Progress Note Filed: 10/11/2019 7:38 AM Note Text: Nursing Progress Note Patient Name: Pedro Pablo Sierra Patient Location: [id number]/[facility] __ Daily Note: 1900 Received bedside report from Josse AHUJA. 1999 Assessment complete. Please see all flowsheets. 2100 2 units of blood ordered per Dr. Johnson. 2199 Started 1 unit of PRBC per order. 0 Dr. Johnson and steward/stewardess club car Daphney rounding on pt. SBAR given. New orders received. 2214 Spoke pshw-nz-omgh with Dr. Johnson. Okay to go by cuff pressure. 5 Started 1 unit of PRBC per order. 0000 Reassessment complete. Please see all flowsheets. 0130 Dr. Johnson at bedside. SBAR given. Per Dr. Johnson, draw AM labs at 0330. 0400 Reassessment complete. Please see all flowsheets. 0715 Bedside report given to Briana AHUJA. Normal [facility] NURSING PROG HNO ID: [id number] Author: Fran NessRn) SEYMOUR Quintana Service: Critical Care Author Type: Registered Nurse Type: Nursing Progress Note Filed: 10/10/2019 7:55 PM Note Text: Nursing Progress Note Patient Name: Pedro Pablo Sierra Patient Location: [id number]/[facility] -01 __ Daily Note: 0800: Full assessment complete. 0810: Talking with Misael, who would like amlodipine held this AM, okay to give metoprolol, and okayed by vascular surgery resident to give plavix. 0830: OR team at bedside. SBAR report. Plan to give cefazolin and PRBCs in OR. [phone]: On the phone with Joseph (pt's ex-) who is concerned because she was not updated on when pt went to surgery and is not getting updates like before via text. Joseph is also stating that she signed papers at [facility] recently transfering Health Care POA into her name. Last AD is from 2013 with Michelle (daughter) as POA. 1042: Page to case management [facility] 245 in OR Mr. Sierra [phone]: Ania (pt's ex-) states that she submitted papers recently while at [facility] that she is healthcare POA. Last AD I see is 2013 that has Michelle Richmond (pt's daughter) as POA. -Josse AHUJA [phone]: pT disoriented to self and time emerging from anesthesia. 1620: Pt calling economic development director light stating he is bleeding. Upon assessment, blood seeping gown and chucks pad under pt. Pressure applied to L groin sight. Page to Dr. Jeter (surgical training specialist). 1621: Dr. Jeter at bedside, assuming full [...] note was completed by: Fran Quintana RN [facility] NURSING PROG HNO ID: [id number] Author: Chrystal NessRn) SEYMOUR Jacob Service: Critical Care Author Type: Registered Nurse Type: Nursing Progress Note Filed: 10/10/2019 6:32 AM Note Text: Nursing Progress Note Patient Name: Pedro Pablo Sierra Patient Location: [id number]/-[facility]-0 245- __ Daily Note: 1900: Bedside handoff received from SEYMOUR Patel. Patient resting in bed, Heparin gtt verified. Pulses dual checked 1999: Full assessment completed. See doc flowsheets. 0000: Reassessment completed. Pulses still present via dopplar. 0400: Reassessment completed. See doc flowsheets. 0545: Patient pulled out IV. Reduced access. Dr. Moody aware. IV fluids stopped. This note was completed by: Chrystal Jacob RN [facility] OPERATIVE NOon 10-10-2019 OPERATIVE NO HNO ID: [id number] Author: Ryan May MD Service: Vascular Surgery Author Type: Physician Type: Operative Report Filed: 10/10/2019 1:51 PM Note Text: OPERATIVE/PROCEDURE REPORT LOG ID: [id number] Surgery/Procedure Date: 10/10/2019 Incision/Procedure Start Time:9:52 AM Incision Close/Procedure End Time: 13:49 Surgeon(s)/Procedurali st(s) and Special Education Teacher(s): Surgeon(s) and Role: * Ryan May MD - Primary * Elly (Azalea) Stephanie - Resident - Assisting No Additional Staff Anesthesia: General Procedure(s): Left EIA to EARLY EDUCATION TEACHER bypass with 7mm ringed PTFE end to [...] to side to the patch. The proximal EARLY EDUCATION TEACHER was clamped with four orange clips. Flow [...] DATE: 10/10/2019 TIME: 1:40 PM PAGER/CONTACT #: [facility] PROGRESSon 10-10-2019 PROGRESS HNO ID: [id number] Author: Elly Brown Service: Vascular Surgery Author [...] (iso-osmotic) 100 mL (ANCEF) 2 g INTRAVENOUS District Manager In Training to OR - NaCl 0.9% iv infusion [...] 1604 -- 10/08/19 1645 pneumatic compression stockings (ri,oh) VTE Prophylaxis: on hep gtt ALLERGIES No [...] hematoma evacuation, possible thrombectomy, possible fem/fem. 2U economic development director to OR Ok to cont. AC Ancef economic development director to OR HOSPITALIZATION(S) Indication for admission/procedure: BLE pain Important/Relevant PMH/PSH: s/p left femoral endarterectomy with patch, US guided access RCFA, L profundaplasty, RUFUS recanalization AND stenting, CRISPIN stenting on 10/23, UC, CAD previous NE, DM, HTN, HLD, COPD Overall Course: 63 year old male with acute onset of BLE pain. Taken to OR for initiation of thrombolysis thru LCIA/TORITO Procedure/Surgeries: 1. Aortogram with bilateral ileofemoral runoff via left brachial artery 2. Left leg angiogram, 3rd order 3. Placement of lysis catheter from distal aorta to left SFA, 20cm treatment zone [facility] 07/02/2014 Thrombectomy Airway Difficulty: NA OR [...] 10, 2019 TIME: 7:50 AM PAGER/CONTACT #: [phone] [facility] PROGRESS HNO ID: [id number] Author: Rashawn Huntley Service: Critical Care Author [...] CURRENT MEDICATIONS: Medications reviewed. Please refer to [facility] for list of inpatient medications. Current Facility-Administered [...] (iso-osmotic) 100 mL (ANCEF) 2 g INTRAVENOUS District Manager In Training to OR Juliana Oden (Pa) - NaCl [...] hospitalization are listed below. Plese refer to [employer] for a full listing of cultures obtained during this hospitalization. ? N/A DIAGNOSTIC TESTS: The following diagnostic tests/findings were reviewed: ? Most recent labs and imaging results. MOST RECENT CXR FINDINGS: Increased vascular markings, likely fluid overload. OPERATIVE PROCEDURE(S): Date of surgery: 10/08/19 Procedure: Left common EARLY EDUCATION TEACHER endarterectomy with bovine path Left profundoplasty Left iliac stenting X4 (I-Cast X2, Jessica X2) Multiple angiograms with angioplasty Surgeon: Dr. May Assessment/Plan 69 year old male with CAD (EF 60% on 09/12/19), NE in 2005, HTN, HLD, COPD, PJ(on 2L O2 nocturnal), DM, GERD, diverticulosis, anxiety, depression, lupus anticoagulant disorder on Coumadin, chronic low back pain, aortoiliac and left ileofemoral PAD s/p multiple interventions including left femoral endarterectomy/aortoil iac stenting in 10/2013 who underwent a 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 May on 10/08/19. She is admitted to SICU post-operatively for neurovascular checks and close hemodynamic monitoring. Developed L EARLY EDUCATION TEACHER occlusion POD2 and going back to OR [...] -- 10/08/19 1700 activity - mobilize patient (ri,oh) 10/08/19 1645 pneumatic compression stockings (ri,oh) VTE Prophylaxis: VTE prophylaxis appropriate To be seen and discussed on rounds with SICU staff: Dr. Huntley ICU Checklist --------- --- VTE Prophylaxis: SIGNATURE: Misael Jeter MD PATIENT NAME: Pedro Pablo Sierra DATE: October 10, 2019 TIME: 6:40 AM PAGER/CONTACT #: [phone] [facility] STAFF PHYSICIAN NOTE OF PERSONAL [...] HTN GERD ? Procedure/Surgeon 10/08/19 S/P L EARLY EDUCATION TEACHER endarterectomy with bovine path, profundoplasty and iliac [...] Huntley DO 7:56 AM October 10, 2019 [facility] PTT,Anticoag Therapyon 10-09 aPTT Coag (Bld) [Time] 109.7 s High 23.0-32.4 [facility] Comment on above: Result Comment: Unfr [...] laboratory APTT reagent in use throughout the [facility]. Called to and read back by: Landry Quintana RN [facility] 10/10/19 Noemí HOLLIS Performed By: #### P TTAC ####[place] [phone] Phosphoruson 10-10-2019 Phosphate [Mass/Vol] 3.0 mg/dL Normal 2.5-4.5 [facility] Comment on above: Performed By: #### C BCDIF, BMP, MG1, PHOS, PTT, PT ####[place] [phone] Phosphate [Mass/Vol] 2.1 mg/dL Low 2.5-4.5 [facility] Comment on above: Performed By: #### C BC, BMP, MG1, PHOS ####[address] [phone] Protimeon 10-10-2019 PT Coag (PPP) [Time] 10.5 s Normal 9.7-13.0 [facility] Comment on above: Performed By: #### C BCDIF, PTT, FIBCT, PT ####[place] [phone] PT Coag (PPP) [Time] 1.0 s Normal 0.9-1.3 [facility] Comment on above: Result [...] Chest 2012, 141:7S-47S Gio RA, et al. [facility] 2017, 70: 252-289 Performed By: #### C BCDIF, PTT, FIBCT, PT ####[place] [phone] Performed By: #### C BCDIF, BMP, MG1, PHOS, PTT, PT ####[place] [phone] PT Coag (PPP) [Time] 10.9 s Normal 9.7-13.0 [facility] Comment on above: Performed By: #### C BCDIF, BMP, MG1, PHOS, PTT, PT ####[place] [phone] SURGICAL PATHOLOGYon 020 SURGICAL PATHOLOGY Specimen originated from [facility] Specimen #: [id number] Submitting Physician: RYAN MAY FINAL DIAGNOSIS Left [...] x 1.0 cm. No vessel is seen. Iron Melter sections are submitted in formalin in one cassette. KVB/ka 10/14/2019 Gross examination performed at [facility], [address] [place] [address] Date of Report: 10/15/2019 Date of Procedure: 10/10/2019 Date of Receipt: 10/11/2019 Submitted by: RYAN MAY Location: [facility] Diagnostic interpretation performed at [place] [address]. IA Number: [id number] [facility] THERAPY NTon 10-10-2019 THERAPY NT HNO ID: [id number] Author: Shakir NessPtPauline Coello Service: Physical Therapy Author Type: Physical Therapist Type: Therapy (PT/OT/Speech/Resp) Filed: 10/10/2019 1:18 PM Note Text: .PHYSICAL THERAPY MISSED VISIT SERVICE DATE: 10/10/2019 SERVICE TIME: 1317 to 1317 ROOM: [facility] ( OPERATING ROOM) Attempted Treatment. Patient not seen due to Surgery. SIGNATURE: Shakir Coello PT PATIENT NAME: Pedro Pablo Sierra DATE: October 10, 2019 TIME: 1:18 PM [facility] THERAPY NT HNO ID: [id number] Author: Caitlin Thomas Service: Occupational Therapy Author Type: Occupational Therapist Type: Therapy (PT/OT/Speech/Resp) Filed: 10/10/2019 7:37 AM Note Text: OCCUPATIONAL THERAPY MISSED VISIT SERVICE DATE: 10/10/2019 SERVICE TIME: 0736 to 0736 ROOM: [place] [address] Attempted Treatment. Patient not seen due to Surgery. Pt going back to OR. OT tx on hold today. Will continue to monitor. SIGNATURE: Caitlin Thomas OTR/L PATIENT NAME: Pedro Pablo Sierra DATE: October 10, 2019 TIME: 7:36 AM [facility] XR CHEST 1V FRONTAL PORTon 0 [...] airspace opacities, which may relate to atelectasis. 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 ? To contact the [facility] Care Department: Please call [phone]?or Page the On-Call Procurement Agent at pager [phone].??? Thank you for the opportunity to be of service. SIGNATURE: Chaplain Terry PATIENT NAME: Pedro Pablo Sierra DATE: October 09, 2019 TIME: 5:09 PM PAGER/CONTACT #: [phone] Normal [facility] APTTon 10-09-2019 aPTT Coag (Bld) [Time] 20.8 s Low 23.0-32.4 [facility] Comment on above: Result Comment: Unfr [...] laboratory APTT reagent in use throughout the [facility]. Performed By: #### C BC, BMP, MG1, PHOS, PTT, PT ####[place] [id number] [place], [place] [phone] Basic Metabolic Panlon 10-08 Anion gap [Moles/Vol] 9 mmol/L Normal 9-18 [facility] Comment on above: Performed By: #### C BC, BMP, MG1, PHOS, PTT, PT ####[place] [id number] [place], [place] [phone] Calcium [Mass/Vol] 8.1 mg/dL Low 8.5-10.5 [facility] Comment on above: Performed By: #### C BC, BMP, MG1, PHOS, PTT, PT ####[place] [id number] [place], [place] [phone] Chloride [Moles/Vol] 101 mmol/L Normal 98-110 [facility] Comment on above: Performed By: #### C BC, BMP, MG1, PHOS, PTT, PT ####[place] [phone] CO2 [Moles/Vol] 26 mmol/L Normal 23-32 [facility] Comment on above: Performed By: #### C BC, BMP, MG1, PHOS, PTT, PT ####[place] [phone] Creatinine [Mass/Vol] 0.81 mg/dL Normal 0.70-1.40 [facility] Comment on above: Performed By: #### C BC, BMP, MG1, PHOS, PTT, PT ####[place] [phone] eGFR- Amer. >60 Normal >60 [facility] Comment on above: Performed By: #### C BC, BMP, MG1, PHOS, PTT, PT ####[place] [phone] GFR/1.73 sq M predicted among non-blacks MDRD (S/P/Bld) [Vol rate/Area] mL/min/{1.73_m2} Normal >60 [facility] Comment on above: Performed By: #### C BC, BMP, MG1, PHOS, PTT, PT ####[place] [phone] Glucose [Mass/Vol] 129 mg/dL High 65-100 [facility] Comment on above: Performed By: #### C BC, BMP, MG1, PHOS, PTT, PT ####[place] [phone] Potassium [Moles/Vol] 4.5 mmol/L Normal 3.5-5.0 [facility] Comment on above: Performed By: #### C BC, BMP, MG1, PHOS, PTT, PT ####[place] [phone] Sodium [Moles/Vol] 136 mmol/L Normal 135-146 [facility] Comment on above: Performed By: #### C BC, BMP, MG1, PHOS, PTT, PT ####[facility] [place], [place] [phone] Urea nitrogen [Mass/Vol] 15 mg/dL Normal 10-25 [facility] Comment on above: Performed By: #### C BC, BMP, MG1, PHOS, PTT, PT ####[place] [id number] [place], [place] [phone] CASE MANAGEMon 10-09-2019 CASE MANAGEM HNO ID: [id number] Author: Carly NessRn) SEYMOUR Man Service: Case [...] once a week. Pt nurse is from [facility] ). Carmen would like AVS faxed at d/c to [phone] SIGNATURE: Carly Man RN,BSN PATIENT NAME: Pedro Pablo Sierra DATE: October 09, 2019 TIME: 1:44 PM PAGER/CONTACT #: [phone] [facility] CASE MGT INIT ASSESon 2019 CASE MGT INIT [facility] HNO ID: [id number] Author: Carly NessRn) SEYMOUR Man Service: Case Management Author Type: Registered Nurse Type: Care Mgt Initial Assessment Filed: 10/09/2019 12:41 PM Note Text: CARE MANAGEMENT: ASSESSMENT AND DISCHARGE PLAN SERVICE DATE: October 09, 2019 SERVICE TIME: 1240 PRIMARY CARE PHYSICIAN: DAIJA MORTON MD ADMISSION STATUS: Inpatient Needs Prior to Discharge: To Be Determined MEDICAL: [facility] MEDICARE 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 Stated Goals: To improve my functional status;To have reduction in symptoms;To return home to life as it was Health Insurance: Medicare;Medicaid Health Issues Impacting Discharge Plan: Newly diagnosed;Chronic Newly Diagnosed: s/p 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 Last discharge within 30 days: No Advance Directive: Current Advance Directive: Health Care Power of Lcsw;Living Will In Chart: Yes Up To Date [...] Completely I feel financially burdened by my rmr-nz-dmljth expenses for my prescription medication:: 0 - Disagree Completely Risk Score: 0 Patient is categorized as: Low risk < 2 Are you interested in bedside delivery of your medications? No Is Patient Psychosocially Complex?: No ASSESSMENT AND PLAN: Medical Needs: Medical Needs: Two or more chronic diseases;Fall risk or frequent falls Psychosocial Needs: Psychosocial Needs: None FREEDOM OF CHOICE EXPLAINED: [place] of Choice Given: No Reason Not Given: No placements necessary POTENTIAL TRANSITION PLANS To Be Determined 69 yo male admitted for vascular procedure, vascular surgery following. 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 Pt states B/B [...] 09, 2019 TIME: 12:26 PM PAGER/CONTACT #: [phone] Normal [facility] CBCon 10-09-2019 Erythrocyte distribution width (RBC) [Ratio] 15.7 % High 11.5-15.0 [facility] Comment on above: Performed By: #### C BC, BMP, MG1, PHOS, PTT, PT ####[facility] [place], [place] [phone] Hematocrit (Bld) [Volume fraction] 28.4 % Low 39.0-51.0 [facility] Comment on above: Performed By: #### C BC, BMP, MG1, PHOS, PTT, PT ####[place] [phone] MCH (RBC) [Entitic mass] 30.2 pG Normal 26.0-34.0 [facility] Comment on above: Performed By: #### C BC, BMP, MG1, PHOS, PTT, PT ####[place] [phone] MCHC (RBC) [Mass/Vol] 32.7 g/dL Normal 30.5-36.0 [facility] Comment on above: Performed By: #### C BC, BMP, MG1, PHOS, PTT, PT ####[place] [phone] MCV (RBC) [Entitic vol] 92.2 fL Normal 80.0-100.0 [facility] Comment on above: Performed By: #### C BC, BMP, MG1, PHOS, PTT, PT ####[place] [phone] Platelet mean volume (Bld) [Entitic vol] 9.9 fL Normal 9.0-12.7 [facility] Comment on above: Performed By: #### C BC, BMP, MG1, PHOS, PTT, PT ####[place] [phone] Platelets (Bld) [#/Vol] 220 10*3/uL Normal 150-400 [facility] Comment on above: Performed By: #### C BC, BMP, MG1, PHOS, PTT, PT ####[place] [phone] RBC (Bld) [#/Vol] 3.08 10*6/uL Low 4.20-6.00 [facility] Comment on above: Performed By: #### C BC, BMP, MG1, PHOS, PTT, PT ####[place] [phone] WBC (Bld) [#/Vol] 7.77 10*3/uL Normal 3.70-11.00 [facility] Comment on above: Performed By: #### C BC, BMP, MG1, PHOS, PTT, PT ####[place] [phone] CBC and Differentialon 10-08 Abs Baso <0.03 Normal <0.11 [facility] Comment on above: Performed By: #### C BCDIF ####[place] [phone] Abs Rapides 0.50 k/uL Normal <0.87 [facility] Comment on above: Performed By: #### C BCDIF ####[place] [phone] Abs Neut 5.57 k/uL Normal 1.45-7.50 [facility] Comment on above: Performed By: #### C BCDIF ####[place] [phone] Basophils/100 WBC (Bld) 0.3 % Normal [facility] Comment on above: Performed By: #### C BCDIF ####[place] [phone] DTYPE Auto Diff Normal [facility] Comment on above: Performed By: #### C BCDIF ####[place] [phone] Eosinophils (Bld) [#/Vol] 10*3/uL Normal <0.46 [facility] Comment on above: Performed By: #### C BCDIF ####[place] [phone] Eosinophils/100 WBC (Bld) 0.1 % Normal [facility] Comment on above: Performed By: #### C BCDIF ####[place] [phone] Erythrocyte distribution width (RBC) [Ratio] 16.0 % High 11.5-15.0 [facility] Comment on above: Performed By: #### C BCDIF ####[place] [phone] Hematocrit (Bld) [Volume fraction] 28.9 % Low 39.0-51.0 [facility] Comment on above: Performed By: #### C BCDIF ####[place] [phone] Hemoglobin (Bld) [Mass/Vol] 9.3 g/dL Low 13.0-17.0 [facility] Comment on above: Performed By: #### C BCDIF ####[place] [phone] Performed By: #### C BC, BMP, MG1, PHOS, PTT, PT ####[place] [phone] Lymphocytes (Bld) [#/Vol] 1.19 10*3/uL Normal 1.00-4.00 [facility] Comment on above: Performed By: #### C BCDIF ####[place] [phone] Lymphocytes/100 WBC (Bld) 16.3 % Normal [facility] Comment on above: Performed By: #### C BCDIF ####[place] [phone] MCH (RBC) [Entitic mass] 30.0 pG Normal 26.0-34.0 [facility] Comment on above: Performed By: #### C BCDIF ####[place] [phone] MCHC (RBC) [Mass/Vol] 32.2 g/dL Normal 30.5-36.0 [facility] Comment on above: Performed By: #### C BCDIF ####[place] [phone] MCV (RBC) [Entitic vol] 93.2 fL Normal 80.0-100.0 [facility] Comment on above: Performed By: #### C BCDIF ####[address] [phone] Monocytes/100 WBC (Bld) 6.9 % Normal [facility] Comment on above: Performed By: #### C BCDIF ####[address] [phone] Neutrophils/100 WBC (Bld) 76.4 % Normal [facility] Comment on above: Performed By: #### C BCDIF ####[address] [phone] Platelet mean volume (Bld) [Entitic vol] 9.8 fL Normal 9.0-12.7 [facility] Comment on above: Performed By: #### C BCDIF ####[place] [phone] Platelets (Bld) [#/Vol] 200 10*3/uL Normal 150-400 [facility] Comment on above: Performed By: #### C BCDIF ####[address] [phone] RBC (Bld) [#/Vol] 3.10 10*6/uL Low 4.20-6.00 [facility] Comment on above: Performed By: #### C BCDIF ####[address] [phone] WBC (Bld) [#/Vol] 7.29 10*3/uL Normal 3.70-11.00 [facility] Comment on above: Performed By: #### C BCDIF ####[address] [phone] MEDICAL EMERon 10-09-2019 MEDICAL LEYLA HNO ID: [id number] Author: Misael Jeter MD Service: Critical Care [...] Jeter MD General Surgery Resident PGY2 Pager: [phone] 10/09/2019 5:11 PM Normal [facility] Magnesiumon 10-09-2019 Magnesium [Mass/Vol] 2.1 mg/dL Normal 1.7-2.6 [facility] Comment on above: Result Comment: Revi ewed Performed By: #### C BC, BMP, MG1, PHOS, PTT, PT ####[facility] [place], [place] [phone] NURSING PROGon 10-09-2019 NURSING PROG HNO ID: [id number] Author: Amanda (Rn) SEYMOUR Delgadillo Service: Nursing Author Type: Registered Nurse Type: Nursing Progress Note Filed: 10/09/2019 6:36 PM Note Text: Nursing Progress Note Patient Name: Pedro Pablo Sierra Patient Location: [id number]/[facility]-0 245-01 __ Daily Note: 1745: Bedside handoff received from SEYMOUR Shields. 1800: Dr. Fish at bedside. Patient c/o numbness in left leg. Bilateral DP and PT pulses doppled. Dr. Fish obtaining consent for surgery tomorrow. 1900: Bedside handoff given to SEYMOUR Jarrell. This note was completed by: Amanda Delgadillo RN [facility] NURSING PROG HNO ID: [id number] Author: Cornelius Hutchison) SEYMOUR Gonzalez Service: Nursing Author Type: Registered Nurse Type: Nursing Progress Note Filed: 10/09/2019 5:39 PM Note Text: Nursing Progress Note Patient Name: Pedro Pablo Sierra Patient Location: [id number]/[facility]-0 [facility] __ Daily Note: 0700 Bedside report received from previous shift RN. 0800 Assessment completed and charted. Neuro intact. VSS. Pulses present via doppler. See flowsheets. 1200 Assessment completed and charted. 1600 Reassessment completed and charted. 1730 Heparin gtt started. See AUG. 1744 Bedside report given to Tigist AHUJA. This note was completed by: Cornelius Gonzalez RN [facility] NUTRITIONon 10-09-2019 NUTRITION HNO ID: [id number] Author: Muna Rivas Service: Nutrition Therapy Author Type: Registered Dietitian Type: Nutrition Filed: 10/09/2019 2:49 PM Note Text: NUTRITION THERAPY SCREEN NOTE SERVICE DATE: 10/09/2019 SERVICE TIME: 2:38 PM Care Plan: Continue current diet Supplements: Impact AR HPI: Per Rashawn Huntley 10/08/2019 69 year old male with CAD (EF 60% on 09/12/19), NE in 2005, HTN, HLD, COPD, PJ(on 2L O2 nocturnal), DM, GERD, diverticulosis, anxiety, depression, lupus anticoagulant disorder on Coumadin, chronic low back pain, aortoiliac and left ileofemoral PAD s/p multiple interventions including left femoral endarterectomy/aortoil iac stenting in 10/2013 who underwent a 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 Formal arterial duplex of LLE shows occluded EARLY EDUCATION TEACHER. Plan for exploration and revascularization with Dr. 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 ETX#[id number] For questions Monday through Monday 6am to 6pm please page Red Team [phone] For questions during nights (6pm - 6am) and weekends, please contact the General Surgery District Manager In Training pager, [phone] [facility] PROGRESS HNO ID: [id number] Author: Rashawn Huntley Service: Critical Care Author [...] CURRENT MEDICATIONS: Medications reviewed. Please refer to [facility] for list of inpatient medications. Current Facility-Administered [...] hospitalization are listed below. Plese refer to [facility] for a full listing of cultures obtained during this hospitalization. ? N/A DIAGNOSTIC TESTS: The following diagnostic tests/findings were reviewed: ? Most recent labs and imaging results. MOST RECENT CXR FINDINGS: n/a OPERATIVE PROCEDURE(S): Date of surgery: 10/08/19 Procedure: Left common EARLY EDUCATION TEACHER endarterectomy with bovine path Left profundoplasty Left iliac stenting X4 (I-Cast X2, Jessica X2) Multiple angiograms with angioplasty Surgeon: Dr. May Assessment/Plan 69 year old male with CAD (EF 60% on 09/12/19), NE in 2005, HTN, HLD, COPD, PJ(on 2L O2 nocturnal), DM, GERD, diverticulosis, anxiety, depression, lupus anticoagulant disorder on Coumadin, chronic low back pain, aortoiliac and left ileofemoral PAD s/p multiple interventions including left femoral endarterectomy/aortoil iac stenting in 10/2013 who underwent a Redo left [employer]ARLY EDUCATION TEACHER endarterectomy, left profundoplasty, left iliac stenting with [...] -- 10/08/19 1700 activity - mobilize patient (ri,tn) 10/08/19 1645 pneumatic compression stockings ([place]) VTE Prophylaxis: VTE prophylaxis appropriate To be seen and discussed on rounds with SICU staff: Dr. Huntley ICU Checklist --------- --- VTE Prophylaxis: SIGNATURE: Misael Jeter MD PATIENT NAME: Pedro Pablo Sierra DATE: October 09, 2019 TIME: 6:40 AM PAGER/CONTACT #: [phone] [facility] STAFF PHYSICIAN NOTE OF PERSONAL [...] Essential HTN GERD Procedure/Surgeon 10/08/19 S/P L EARLY EDUCATION TEACHER endarterectomy with bovine path, profundoplasty and iliac [...] DO 8:20 AM October 09, 2019 Normal [facility] PTT,Anticoag Therapyon 10-08 aPTT Coag (Bld) [Time] 23.9 s Normal 23.0-32.4 [facility] Comment on above: Result Comment: Unfr [...] laboratory APTT reagent in use throughout the [facility]. Performed By: #### P T, PTTAC ####[address] [phone] Phosphoruson 10-09-2019 Phosphate [Mass/Vol] 3.6 mg/dL Normal 2.5-4.5 [facility] Comment on above: Performed By: #### C BC, BMP, MG1, PHOS, PTT, PT ####[address] [phone] Protimeon 10-09-2019 PT Coag (PPP) [Time] 10.2 s Normal 9.7-13.0 [facility] Comment on above: Performed By: #### P T, PTTAC ####[address] [phone] PT Coag (PPP) [Time] 1.0 s Normal 0.9-1.3 [facility] Comment on above: Result [...] [phone] Performed By: #### P T, PTTAC ####[place] [phone] Performed By: #### C BC, BMP, MG1, PHOS, PTT, PT ####[place] [phone] PT Coag (PPP) [Time] 10.5 s Normal 9.7-13.0 [facility] Comment on above: Performed By: #### C BC, BMP, MG1, PHOS, PTT, PT ####[place] [phone] Staph aureus PCRon 0 MRSA PCR Negative [facility] Comment on above: Performed By: #### S APCR ####[place] [phone] S aureus Spec Source Nasal [facility] Comment on above: Performed By: #### S APCR ####[phone] Staph aureus PCR Negative [facility] Comment on above: Performed By: #### S APCR ####[place] [phone] [phone] THERAPY NTon 10-09-2019 THERAPY NT HNO ID: [id number] Author: Shakir Alicea (Pt) Mode Service: Physical Therapy Author Type: Physical Therapist Type: Therapy (PT/OT/Speech/Resp) Filed: 10/09/2019 2:58 PM Note Text: Physical Therapy Evaluation SERVICE DATE: 10/09/2019 SERVICE TIME: 1055 to 1120 ROOM: [id number] Recommended Discharge Disposition: Home PT Anticipated Discharge [...] ness on feet Interventions Provided: Evaluation;Gait Training (90613) $ Evaluation-Moderate (55419) Billed Units: 1 unit Gait Training (75288) Treatment Minutes: 10 1 unit Skilled Intervention(s): [...] Consult : PVD s/p L LE redo 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 EDUCATION TEACHER endarterectomy, L profundoplasty, iliac stenting on 10/08/19 Relevant Past Medical History: CAD, NE, HTN, HLD, COPD, PJ, DM, anxiety, depression, blind R eye Patient Report: Pt agreeable to participate in therapy session Home Environment Patient Lives With: Self/Alone Assistance Available: legal intern Entry To Home: Stairs;Other: See Comment(stair lift) [...] October 09, 2019 TIME: 2:46 PM Normal [facility] THERAPY NT HNO ID: [id number] Author: Caitlin (Ot) William Service: Occupational Therapy Author Type: Occupational Therapist Type: Therapy (PT/OT/Speech/Resp) Filed: 10/09/2019 12:48 PM Note Text: Occupational Therapy Evaluation SERVICE DATE: 10/09/2019 SERVICE TIME: 1010 to 1050 ROOM: [place] [address] Recommended Discharge Disposition: Home OT Justification For [...] and Awareness;Unsteadiness on feet Interventions Provided: Evaluation;Self Prison Management (23724) $ Evaluation-Moderate (31148) Billed Units: 1 unit Self Prison Management (77893) Treatment Minutes: 25 2 units Skilled Intervention(s): [...] Reason for Occupational Therapy Consult: redo L EARLY EDUCATION TEACHER endarterectomy, L profundoplasty, L iliac stenting 10/07 Relevant Past Medical History: CAD, NE, HTN, HLD, COPD, PJ, DM, anxiety, depression, blind R eye Patient Report: My daughter is a nurse. She's over a lot. Home Environment Patient Lives With: Self/Alone Assistance Available: legal intern(daughter comes over often) Entry To Home: Stairs(pt [...] DATE: October 09, 2019 TIME: 12:39 PM [facility] ANES POSTPROC EVALon 020 ANES POSTPROC EVAL HNO ID: [id number] Author: Job Roberts Service: ? Author Type: [...] (Left ) Diagnosis: PVD (peripheral vascular disease) ([facility]) (PVD (peripheral vascular disease) ([facility]) [I73.9]) Surgeon: Ryan May MD Responsible [...] October 08, 2019 TIME: 6:39 PM CSN: [id number] [facility] ANES PRE-OPon 10-08-2019 ANES PRE-OP HNO ID: [id number] Author: Anabel Lozano Service: ? Author Type: [...] movements. - COMPOUNDED PRESCRIPTION Aerosol supplies Dx:J44.1 NPI#[id number] - ipratropium-albuterol (DUONEB) 0.5 mg-3 mg(2.5 mg [...] October 08, 2019 TIME: 8:42 AM CSN: [id number] Normal [facility] APTTon 10-08-2019 aPTT Coag (Bld) [Time] 53.2 s High 23.0-32.4 [facility] Comment on above: Result Comment: Unfr [...] laboratory APTT reagent in use throughout the [facility]. Performed By: #### C BC, BMP, MG1, PHOS, PT, PTT ####[place] [id number] [place], [place] [phone] Basic Metabolic Panlon 10-07 Anion gap [Moles/Vol] 13 mmol/L Normal 9-18 [facility] Comment on above: Performed By: #### C BC, BMP, MG1, PHOS, PT, PTT ####[facility] [place], [place] [phone] Calcium [Mass/Vol] 8.4 mg/dL Low 8.5-10.5 [facility] Comment on above: Performed By: #### C BC, BMP, MG1, PHOS, PT, PTT ####[place] [id number] [place], [place] [phone] Chloride [Moles/Vol] 100 mmol/L Normal 98-110 [facility] Comment on above: Performed By: #### C BC, BMP, MG1, PHOS, PT, PTT ####[place] [phone] CO2 [Moles/Vol] 24 mmol/L Normal 23-32 [facility] Comment on above: Performed By: #### C BC, BMP, MG1, PHOS, PT, PTT ####[place] [phone] Creatinine [Mass/Vol] 0.71 mg/dL Normal 0.70-1.40 [facility] Comment on above: Performed By: #### C BC, BMP, MG1, PHOS, PT, PTT ####[place] [phone] eGFR- Amer. >60 Normal >60 [facility] Comment on above: Performed By: #### C BC, BMP, MG1, PHOS, PT, PTT ####[place] [phone] GFR/1.73 sq M predicted among non-blacks MDRD (S/P/Bld) [Vol rate/Area] mL/min/{1.73_m2} Normal >60 [facility] Comment on above: Performed By: #### C BC, BMP, MG1, PHOS, PT, PTT ####[place] [phone] Glucose [Mass/Vol] 160 mg/dL High 65-100 [facility] Comment on above: Performed By: #### C BC, BMP, MG1, PHOS, PT, PTT ####[place] [phone] Potassium [Moles/Vol] 4.1 mmol/L Normal 3.5-5.0 [facility] Comment on above: Performed By: #### C BC, BMP, MG1, PHOS, PT, PTT ####[place] [phone] Sodium [Moles/Vol] 137 mmol/L Normal 135-146 [facility] Comment on above: Performed By: #### C BC, BMP, MG1, PHOS, PT, PTT ####[place] [phone] Urea nitrogen [Mass/Vol] 12 mg/dL Normal 10-25 [facility] Comment on above: Performed By: #### C BC, BMP, MG1, PHOS, PT, PTT ####[place] [phone] CBCon 10-08-2019 Erythrocyte distribution width (RBC) [Ratio] 15.6 % High 11.5-15.0 [facility] Comment on above: Performed By: #### C BC, BMP, MG1, PHOS, PT, PTT ####[place] [phone] Hematocrit (Bld) [Volume fraction] 35.7 % Low 39.0-51.0 [facility] Comment on above: Performed By: #### C BC, BMP, MG1, PHOS, PT, PTT ####[place] [phone] Hemoglobin (Bld) [Mass/Vol] 11.7 g/dL Low 13.0-17.0 [facility] Comment on above: Performed By: #### C BC, BMP, MG1, PHOS, PT, PTT ####[place] [phone] MCH (RBC) [Entitic mass] 30.3 pG Normal 26.0-34.0 [facility] Comment on above: Performed By: #### C BC, BMP, MG1, PHOS, PT, PTT ####[place] [phone] MCHC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 01-05-2025 14:00-0400 Respiratory rate 34 /min Dr. Daija Morton MD Work Phone: 3(700)431-674731 [place] [address] 01-05-2025 14:00-0400 SaO2% (BldA) [Mass fraction] 93 % Dr. Daija Morton MD Work Phone: 8(296)758-149031 [place] [address] 01-05-2025 14:00-0400 Systolic blood pressure 157 mm[Hg] Dr. Daija Morton MD Work Phone: 1(358)277-937131 [place] [address] 01-05-2025 13:33-0400 Inhaled oxygen concentration 35 % Dr. Daija Morton MD Work Phone: 4(961)122-780331 [place] [address] 01-05-2025 13:33-0400 Inhaled oxygen flow rate 10 L/min Dr. Daija Morton MD Work Phone: 3(744)716-343231 [place] [address] 01-05-2025 09:38-0400 Body height 182.[address] Daija Morton MD Work Phone: 4(370)295-610131 [place] [address] 01-05-2025 09:38-0400 Body mass index (BMI) [Ratio] 22.5 kg/m2 Dr. Daija Morton MD Work Phone: 9(269)347-383431 [place] [address] 01-05-2025 09:38-0400 Body weight 75.[address] Daija Morton MD Work Phone: 6(982)964-584131 [place] [address] 01-03-2025 10:00-0400 Diastolic blood pressure 73 mm[Hg] Dr. Daija Morton MD Work Phone: 8(778)392-110531 [place] [address] 01-03-2025 10:00-0400 Heart rate 53 /min Dr. Daija Morton MD Work Phone: 2(448)490-363531 [place] [address] 01-03-2025 10:00-0400 Respiratory rate 16 /min Dr. Daija Morton MD Work Phone: 1(727)384-774831 [place] [address] 01-03-2025 10:00-0400 SaO2% (BldA) [Mass fraction] 99 % Dr. Daija Morton MD Work Phone: 9(439)314-930231 [place] [address] 01-03-2025 10:00-0400 Systolic blood pressure 174 mm[Hg] Dr. Daija Morton MD Work Phone: 1(285)499-151931 [place] [address] 01-03-2025 08:17-0400 Body temperature 97.6 [degF] Dr. Daija Morton MD Work Phone: 4(504)403-939431 [place] [address] 01-03-2025 06:27-0400 Body height 182.[address] Daija Morton MD Work Phone: 1(009)342-916331 [place] [address] 01-03-2025 06:27-0400 Body mass index (BMI) [Ratio] 20.4 kg/m2 Dr. Daija Morton MD Work Phone: 4(685)763-717431 [place] [address] 01-03-2025 06:27-0400 Body weight 68.[address] Daija Morton MD Work Phone: 3(462)428-082731 [place] [address] 12-26-2024 18:05-0400 Diastolic blood pressure 72 mm[Hg] Dr. Daija Morton MD Work Phone: 5(113)302-924831 [place] [address] 12-26-2024 18:05-0400 Heart rate 74 /min Dr. Daija Morton MD Work Phone: 5(018)408-141631 [place] [address] 12-26-2024 18:05-0400 Systolic blood pressure 162 mm[Hg] Dr. Daija Morton MD Work Phone: 0(794)744-924731 [place] [address] 12-26-2024 14:27-0400 Body temperature 97.9 [degF] Dr. Daija Morton MD Work Phone: 4(951)142-624631 [place] [address] 12-26-2024 14:27-0400 Inhaled oxygen flow rate 2 L/min Dr. Daija Morton MD Work Phone: 4(882)777-133031 [place] [address] 12-26-2024 14:27-0400 Respiratory rate 18 /min Dr. Daija Morton MD Work Phone: 7(739)100-081131 [place] [address] 12-26-2024 14:27-0400 SaO2% (BldA) [Mass fraction] 96 % Dr. Daija Morton MD Work Phone: 1(492)119-296631 [place] [address] 12-26-2024 04:00-0400 Body mass index (BMI) [Ratio] 24.5 kg/m2 Dr. Daija Morton MD Work Phone: 3(424)598-405531 [place] [address] 12-25-2024 11:12-0400 Body height 172.[address] Daija Morton MD Work Phone: 3(912)758-603431 [place] [address] 12-25-2024 11:12-0400 Body weight [address] Daija Morton MD Work Phone: 7(026)165-461731 [place] [address] 12-17-2024 18:14-0400 Body temperature 98.5 [degF] Dr. Daija Morton MD Work Phone: 3(429)112-725931 [place] [address] 12-17-2024 18:14-0400 Diastolic blood pressure 91 mm[Hg] Dr. Daija Morton MD Work Phone: 1(142)718-434031 [place] [address] 12-17-2024 18:14-0400 Heart rate 64 /min Dr. Daija Morton MD Work Phone: 1(546)143-389131 [place] [address] 12-17-2024 18:14-0400 Respiratory rate 16 /min Dr. Daija Morton MD Work Phone: 5(920)728-459831 [place] [address] 12-17-2024 18:14-0400 SaO2% (BldA) [Mass fraction] 99 % Dr. Daija Morton MD Work Phone: 8(101)068-208431 [place] [address] 12-17-2024 18:14-0400 Systolic blood pressure 197 mm[Hg] Dr. Daija Morton MD Work Phone: 9(258)920-923731 [place] [address] 12-17-2024 18:00-0400 Inhaled oxygen flow rate 2 L/min Dr. Daija Morton MD Work Phone: 0(141)747-288131 [place] [address] 12-17-2024 16:21-0400 Body height 172.[address] Daija Morton MD Work Phone: 3(696)328-567331 [place] [address] 12-17-2024 16:21-0400 Body mass index (BMI) [Ratio] 24.5 kg/m2 Dr. Daija Morton MD Work Phone: 5(614)460-348831 [place] [address] 12-17-2024 16:21-0400 Body weight [address] Daija Morton MD Work Phone: 2(017)074-689031 [place] [address] 12-16-2024 20:45-0400 Heart rate 76 /min Dr. Daija Morton MD Work Phone: 3(951)911-593831 [place] [address] 12-16-2024 20:45-0400 Respiratory rate 20 /min Dr. Daija Morton MD Work Phone: 8(255)082-100431 [place] [address] 12-16-2024 19:55-0400 Body temperature 98 [degF] Dr. Daija Morton MD Work Phone: 5(325)651-320731 [place] [address] 12-16-2024 19:55-0400 Diastolic blood pressure 72 mm[Hg] Dr. Daija Morton MD Work Phone: 9(057)654-739331 [place] [address] 12-16-2024 19:55-0400 Inhaled oxygen flow rate 2 L/min Dr. Daija Morton MD Work Phone: 3(146)330-837231 [place] [address] 12-16-2024 19:55-0400 SaO2% (BldA) [Mass fraction] 94 % Dr. Daija Morton MD Work Phone: 2(446)008-152931 [place] [address] 12-16-2024 19:55-0400 Systolic blood pressure 160 mm[Hg] Dr. Daija Morton MD Work Phone: 5(119)560-324431 [place] [address] 12-16-2024 03:13-0400 Body mass index (BMI) [Ratio] 23.4 kg/m2 Dr. Daija Morton MD Work Phone: 0(004)090-196831 [place] [address] 12-16-2024 03:13-0400 Body weight 70.[address] Daija Morton MD Work Phone: 2(746)889-654631 [place] [address] 12-14-2024 13:01-0400 Body height 172.[address] Daija Morton MD Work Phone: 5(447)820-756931 [place] [address] 12-13-2024 20:55-0400 Body temperature 98.3 [degF] Dr. Daija Morton MD Work Phone: 3(574)800-078931 [place] [address] 12-13-2024 20:55-0400 Diastolic blood pressure 73 mm[Hg] Dr. Daija Morton MD Work Phone: 0(086)675-257031 [place] [address] 12-13-2024 20:55-0400 Heart rate 65 /min Dr. Daija Morton MD Work Phone: 6(010)661-028931 [place] [address] 12-13-2024 20:55-0400 Respiratory rate 26 /min Dr. Daija Morton MD Work Phone: 6(272)429-767031 [place] [address] 12-13-2024 20:55-0400 SaO2% (BldA) [Mass fraction] 98 % Dr. Daija Morton MD Work Phone: 2(417)641-623631 [place] [address] 12-13-2024 20:55-0400 Systolic blood pressure 191 mm[Hg] Dr. Daija Morton MD Work Phone: 5(774)347-131531 [place] [address] 12-13-2024 18:10-0400 Inhaled oxygen flow rate 3.5 L/min Dr. Daija Morton MD Work Phone: 4(561)101-651431 [place] [address] 12-13-2024 17:46-0400 Body height 172.[address] Daija Morton MD Work Phone: [facility] 12-13-2024 17:46-0400 Body mass index (BMI) [Ratio] 24.3 kg/m2 Dr. Daija Morton MD Work Phone: [facility] 12-13-2024 17:46-0400 Body weight 72.[address] Daija Morton MD Work Phone: [facility] 12-12-2024 13:57-0400 Body mass index (BMI) [Ratio] 24.05 kg/m2 Anjel Older MUNICIPAL FIREFIGHTER.SPECIALIST ICU Work Phone: [facility] 12-12-2024 13:57-0400 Body weight 71.76 kg Anjel Older MUNICIPAL FIREFIGHTER.SPECIALIST ICU Work Phone: [facility] 12-12-2024 13:57-0400 Diastolic blood pressure 83 mm[Hg] Anjel Older MUNICIPAL FIREFIGHTER.SPECIALIST ICU Work Phone: [facility] 12-12-2024 13:57-0400 Heart rate 65 /min Anjel Older MUNICIPAL FIREFIGHTER.SPECIALIST ICU Work Phone: [facility] 12-12-2024 13:57-0400 Respiratory rate 20 /min Anjel Older MUNICIPAL FIREFIGHTER.SPECIALIST ICU Work Phone: [facility] 12-12-2024 13:57-0400 SaO2% (BldA) [Mass fraction] 94 % Anjel Older MUNICIPAL FIREFIGHTER.SPECIALIST ICU Work Phone: [facility] 12-12-2024 13:57-0400 Systolic blood pressure 185 mm[Hg] Anjel Older MUNICIPAL FIREFIGHTER.SPECIALIST ICU Work Phone: [facility] 09-02-2024 20:48-0400 Heart rate 62 /min Dr. Daija Morton MD Work Phone: [facility] 09-02-2024 19:34-0400 Body temperature 97.5 [degF] Dr. Daija Morton MD Work Phone: [facility] 09-02-2024 19:34-0400 Diastolic blood pressure 77 mm[Hg] Dr. Daija Morton MD Work Phone: 3(573)110-550331 [place] [address] 09-02-2024 19:34-0400 Respiratory rate 16 /min Dr. Daija Morton MD Work Phone: 9(330)831-742831 [place] [address] 09-02-2024 19:34-0400 SaO2% (BldA) [Mass fraction] 92 % Dr. Daija Morton MD Work Phone: 8(943)466-173431 [place] [address] 09-02-2024 19:34-0400 Systolic blood pressure 146 mm[Hg] Dr. Daija Morton MD Work Phone: 1(117)352-372331 [place] [address] 09-02-2024 10:22-0400 Body height 172.[address] Daija Morton MD Work Phone: 9(781)464-172731 [place] [address] 09-02-2024 10:22-0400 Body weight 68.[address] Daija Morton MD Work Phone: 2(548)539-732131 [place] [address] 09-02-2024 06:00-0400 Body mass index (BMI) [Ratio] 22.8 kg/m2 Dr. Daija Morton MD Work Phone: 9(633)087-166931 [place] [address] 09-01-2024 22:41-0400 Inhaled oxygen flow rate 2 L/min Dr. Daija Morton MD Work Phone: 4(593)507-515831 [place] [address] 08-25-2024 18:11-0400 Diastolic blood pressure 90 mm[Hg] Dr. Daija Morton MD Work Phone: 5(528)975-803931 [place] [address] 08-25-2024 18:11-0400 Heart rate 66 /min Dr. Daija Morton MD Work Phone: 4(996)242-245031 [place] [address] 08-25-2024 18:11-0400 Respiratory rate 24 /min Dr. Daija Morton MD Work Phone: 8(961)071-420231 [place] [address] 08-25-2024 18:11-0400 SaO2% (BldA) [Mass fraction] 93 % Dr. Daija Morton MD Work Phone: 9(950)113-812131 [place] [address] 08-25-2024 18:11-0400 Systolic blood pressure 197 mm[Hg] Dr. Daija Morton MD Work Phone: [facility] 08-25-2024 16:12-0400 Body height 165.[address] Daija Morton MD Work Phone: [facility] 08-25-2024 16:12-0400 Body temperature 97.7 [degF] Dr. Daija Morton MD Work Phone: [facility] 03-23-2024 13:19-0400 Diastolic blood pressure 98 mm[Hg] Pura Praisler-Wood MUNICIPAL FIREFIGHTER.SPECIALIST ICU Work Phone: [facility] [facility] 03-23-2024 13:19-0400 Systolic blood pressure 230 mm[Hg] Pura Praisler-Wood MUNICIPAL FIREFIGHTER.SPECIALIST ICU Work Phone: [facility] 03-23-2024 13:12-0400 Body mass index (BMI) [Ratio] 20.92 kg/m2 Pura Praisler-Wood MUNICIPAL FIREFIGHTER.SPECIALIST ICU Work Phone: [facility] 03-23-2024 13:12-0400 Body temperature 96.91 [degF] Pura Praisler-Wood MUNICIPAL FIREFIGHTER.SPECIALIST ICU Work Phone: [facility] 03-23-2024 13:12-0400 Body weight 62.4 kg Pura Praisler-Wood MUNICIPAL FIREFIGHTER.SPECIALIST ICU Work Phone: [facility] 03-23-2024 13:12-0400 Heart rate 74 /min Pura Praisler-Wood MUNICIPAL FIREFIGHTER.SPECIALIST ICU Work Phone: [facility] 03-23-2024 13:12-0400 Respiratory rate 16 /min Pura Praisler-Wood MUNICIPAL FIREFIGHTER.SPECIALIST ICU Work Phone: [facility] 11-21-2023 12:49-0400 Diastolic blood pressure 94 mm[Hg] Rebekah Bogner PA-C Work Phone: [facility] 11-21-2023 12:49-0400 Systolic blood pressure 200 mm[Hg] Rebekah Bogner PA-C Work Phone: [facility] 11-21-2023 12:42-0400 Body mass index (BMI) [Ratio] 22.96 kg/m2 Rebekah Bogner PA-C Work Phone: [facility] 11-21-2023 12:42-0400 Body weight 68.49 kg Rebekah Bogner PA-C Work Phone: [facility] 11-21-2023 12:42-0400 Heart rate 60 /min Rebekah Bogner PA-C Work Phone: [facility] 11-21-2023 12:42-0400 Respiratory rate 16 /min Rebekah Bogner PA-C Work Phone: [facility] 11-21-2023 12:42-0400 SaO2% (BldA) [Mass fraction] 92 % Rebekah Bogner PA-C Work Phone: [facility] 08-02-2023 19:35-0500 Inhaled oxygen flow rate 2 L/min Dr. Daija Morton Work Phone: [facility] 08-02-2023 19:27-0500 Body temperature 97.9 [degF] Dr. Daija Morton Work Phone: [facility] 08-02-2023 19:27-0500 Diastolic blood pressure 59 mm[Hg] Dr. Daija Morton Work Phone: [facility] 08-02-2023 19:27-0500 Heart rate 98 /min Dr. Daija Morton Work Phone: [facility] 08-02-2023 19:27-0500 Respiratory rate 16 /min Dr. Daija Morton Work Phone: [facility] 08-02-2023 19:27-0500 SaO2% (BldA) [Mass fraction] 93 % Dr. Daija Morton Work Phone: [facility] 08-02-2023 19:27-0500 Systolic blood pressure 149 mm[Hg] Dr. Daija Morton Work Phone: 0(137)074-230531 [place] [address] 07-31-2023 10:17-0500 Body height 172.[address] Daija Morton Work Phone: 1(427)588-278331 [place] [address] 07-31-2023 10:17-0500 Body weight 67.[address] Daija Morton Work Phone: 4(026)876-101531 [place] [address] 07-31-2023 00:57-0500 Body mass index (BMI) [Ratio] 22.4 kg/m2 Dr. Daija Morton Work Phone: 8(612)577-568731 [place] [address] 07-31-2023 00:05-0500 Body temperature 99 [degF] Dr. Daija Morton Work Phone: 9(526)509-071931 [place] [address] 07-31-2023 00:05-0500 Diastolic blood pressure 107 mm[Hg] Dr. Daija Morton Work Phone: 6(175)890-594931 [place] [address] 07-31-2023 00:05-0500 Heart rate 107 /min Dr. Daija Morton Work Phone: 6(948)771-183431 [place] [address] 07-31-2023 00:05-0500 Respiratory rate 30 /min Dr. Daija Morton Work Phone: 6(624)961-232331 [place] [address] 07-31-2023 00:05-0500 SaO2% (BldA) [Mass fraction] 98 % Dr. Daija Morton Work Phone: 8(792)016-436431 [place] [address] 07-31-2023 00:05-0500 Systolic blood pressure 173 mm[Hg] Dr. Daija Morton Work Phone: 2(266)970-462731 [place] [address] 07-30-2023 23:25-0500 Inhaled oxygen flow rate 3 L/min Dr. Daija Morton Work Phone: 7(440)001-743231 [place] [address] 07-30-2023 20:30-0500 Body height 172.[address] Dajia Morton Work Phone: 1(825)642-892331 [place] [address] 07-30-2023 20:30-0500 Body mass index (BMI) [Ratio] 24.2 kg/m2 Dr. Daija Morton Work Phone: 3(804)125-467631 [place] [address] 07-30-2023 20:30-0500 Body weight 72.[address] Daija Morton Work Phone: 7(659)720-455331 [place] [address] 07-26-2023 12:10-0500 Diastolic blood pressure 59 mm[Hg] Dr. Daija Morton Work Phone: 3(962)968-280431 [place] [address] 07-26-2023 12:10-0500 Heart rate 67 /min Dr. Daija Morton Work Phone: 4(058)874-111431 [place] [address] 07-26-2023 12:10-0500 Respiratory rate 18 /min Dr. Daija Morton Work Phone: 2(425)874-344131 [place] [address] 07-26-2023 12:10-0500 SaO2% (BldA) [Mass fraction] 90 % Dr. Daija Morton Work Phone: 1(064)450-036031 [place] [address] 07-26-2023 12:10-0500 Systolic blood pressure 107 mm[Hg] Dr. Daija Morton Work Phone: 1(760)233-509131 [place] [address] 07-26-2023 08:38-0500 Body temperature 97.8 [degF] Dr. Daija Morton Work Phone: 1(752)709-749031 [place] [address] 07-26-2023 06:59-0500 Inhaled oxygen flow rate 2 L/min Dr. Daija Morton Work Phone: 5(686)685-007331 [place] [address] 07-25-2023 16:00-0500 Body weight 51.[address] Daija Morton Work Phone: 3(008)987-411031 [place] [address] 07-24-2023 21:55-0500 Body mass index (BMI) [Ratio] 17.4 kg/m2 Dr. Daija Morton Work Phone: 9(843)860-107631 [place] [address] 07-24-2023 21:13-0500 Diastolic blood pressure 89 mm[Hg] Dr. Daija Morton Work Phone: 1(529)585-990231 [place] [address] 07-24-2023 21:13-0500 Heart rate 65 /min Dr. Daija Morton Work Phone: 6(021)685-826531 [place] [address] 07-24-2023 21:13-0500 Respiratory rate 16 /min Dr. Daija Morton Work Phone: 1(513)050-396331 [place] [address] 07-24-2023 21:13-0500 SaO2% (BldA) [Mass fraction] 91 % Dr. Daija Morton Work Phone: 6(051)959-977631 [place] [address] 07-24-2023 21:13-0500 Systolic blood pressure 210 mm[Hg] Dr. Daija Morton Work Phone: 2(411)714-676331 [place] [address] 07-24-2023 17:27-0500 Body mass index (BMI) [Ratio] 22.8 kg/m2 Dr. Daija Morton Work Phone: 3(718)529-940731 [place] [address] 07-24-2023 17:27-0500 Body weight [address] Daija Morton Work Phone: 1(114)732-824931 [place] [address] 07-24-2023 16:44-0500 Body height 172.[address] Daija Morton Work Phone: 6(954)212-974331 [place] [address] 07-24-2023 16:44-0500 Body temperature 96.7 [degF] Dr. Daija Morton Work Phone: 8(844)686-169231 [place] [address] 04-04-2023 11:37-0400 Diastolic blood pressure 79 mm[Hg] Dr. Daija Morton Work Phone: 3(047)464-359231 [place] [address] 04-04-2023 11:37-0400 Heart rate 44 /min Dr. Daija Morton Work Phone: 9(520)204-906831 [place] [address] 04-04-2023 11:37-0400 Systolic blood pressure 188 mm[Hg] Dr. Daija Morton Work Phone: 4(202)703-166931 [place] [address] 04-04-2023 10:02-0400 Body temperature 97.6 [degF] Dr. Daija Morton Work Phone: 2(991)319-830531 [place] [address] 04-04-2023 10:02-0400 Respiratory rate 18 /min Dr. Daija Morton Work Phone: 9(909)038-533531 [place] [address] 04-04-2023 10:02-0400 SaO2% (BldA) [Mass fraction] 92 % Dr. Daija Morton Work Phone: 7(395)959-451031 [place] [address] 04-03-2023 15:53-0400 Inhaled oxygen flow rate 2 L/min Dr. Daija Morton Work Phone: 2(732)289-909931 [place] [address] 03-31-2023 14:20-0400 Body mass index (BMI) [Ratio] 20.5 kg/m2 Dr. Daija Morton Work Phone: 8(458)365-006831 [place] [address] 03-31-2023 14:20-0400 Body weight [address] Daija Morton Work Phone: 3(004)786-571031 [place] [address] 03-31-2023 09:57-0400 Body height 175.[address] Daija Morton Work Phone: 3(069)001-100431 [place] [address] 03-30-2023 20:26-0400 Body temperature 96.7 [degF] Dr. Daija Morton Work Phone: 4(846)197-040731 [place] [address] 03-30-2023 20:26-0400 Diastolic blood pressure 78 mm[Hg] Dr. Daija Morton Work Phone: 2(325)811-642331 [place] [address] 03-30-2023 20:26-0400 Heart rate 71 /min Dr. Daija Morton Work Phone: 9(221)901-063031 [place] [address] 03-30-2023 20:26-0400 Respiratory rate 18 /min Dr. Daija Morton Work Phone: 8(867)896-411731 [place] [address] 03-30-2023 20:26-0400 SaO2% (BldA) [Mass fraction] 97 % Dr. Daija Morton Work Phone: 5(005)975-322631 [place] [address] 03-30-2023 20:26-0400 Systolic blood pressure 181 mm[Hg] Dr. Daija Morton Work Phone: 7(792)209-188131 [place] [address] 03-30-2023 14:10-0400 Body height 172.[address] Daija Morton Work Phone: 3(945)824-230131 [place] [address] 03-29-2023 19:22-0400 Body mass index (BMI) [Ratio] 21.9 kg/m2 Dr. Diaja Morton Work Phone: 0(805)985-599431 [place] [address] 03-29-2023 19:22-0400 Body weight 65.[address] Daija Morton Work Phone: 4(300)333-144031 [place] [address] 03-29-2023 19:20-0400 Diastolic blood pressure 80 mm[Hg] Dr. Daija Morton Work Phone: 7(505)956-350531 [place] [address] 03-29-2023 19:20-0400 Heart rate 84 /min Dr. Daija Morton Work Phone: 8(772)844-965231 [place] [address] 03-29-2023 19:20-0400 Respiratory rate 18 /min Dr. Daija Morton Work Phone: 0(681)964-630531 [place] [address] 03-29-2023 19:20-0400 SaO2% (BldA) [Mass fraction] 92 % Dr. Daija Morton Work Phone: 6(859)415-448931 [place] [address] 03-29-2023 19:20-0400 Systolic blood pressure 195 mm[Hg] Dr. Daija Morton Work Phone: 2(561)019-858731 [place] [address] 03-29-2023 18:17-0400 Body temperature 97.6 [degF] Dr. Daija Morton Work Phone: 8(537)095-168031 [place] [address] 02-25-2023 19:41-0400 Diastolic blood pressure 87 mm[Hg] Dr. Daija Morton Work Phone: 3(503)101-280231 [place] [address] 02-25-2023 19:41-0400 Heart rate 67 /min Dr. Daija Morton Work Phone: 9(177)184-940831 [place] [address] 02-25-2023 19:41-0400 Respiratory rate 15 /min Dr. Daija Morton Work Phone: 9(252)183-492731 [place] [address] 02-25-2023 19:41-0400 SaO2% (BldA) [Mass fraction] 97 % Dr. Daija Morton Work Phone: 9(655)448-581531 [place] [address] 02-25-2023 19:41-0400 Systolic blood pressure 193 mm[Hg] Dr. Daija Morton Work Phone: [facility] 02-25-2023 19:37-0400 Body mass index (BMI) [Ratio] 22.4 kg/m2 Dr. Daija Morton Work Phone: [facility] 02-25-2023 19:37-0400 Body weight 67.[address] Daija Morton Work Phone: [facility] 02-25-2023 17:22-0400 Body temperature 97 [degF] Dr. Daija Morton Work Phone: [facility] 02-18-2023 01:56-0400 Diastolic blood pressure 113 mm[Hg] [facility] 02-18-2023 01:56-0400 Heart rate 88 /min [facility] 02-18-2023 01:56-0400 Respiratory rate 16 /min [facility] 02-18-2023 01:56-0400 Systolic blood pressure 157 mm[Hg] [facility] 02-18-2023 01:00-0400 SaO2% (BldA) [Mass fraction] 98 % [facility] 02-17-2023 21:35-0400 Body mass index (BMI) [Ratio] 21.5 kg/m2 [facility] 02-17-2023 21:35-0400 Body weight 66.[address] [facility] 02-17-2023 21:32-0400 Body height 175.[address] [facility] 02-17-2023 21:32-0400 Body temperature 96.4 [degF] [facility] 12-31-2022 15:16-0400 Body height [address] [facility] 12-31-2022 15:16-0400 Body mass index (BMI) [Ratio] 21.7 kg/m2 [facility] 12-31-2022 15:16-0400 Body temperature 96.6 [degF] [facility] 12-31-2022 15:16-0400 Body weight 65.[address] [facility] 12-31-2022 15:16-0400 Diastolic blood pressure 66 mm[Hg] [facility] 12-31-2022 15:16-0400 Heart rate 75 /min [facility] 12-31-2022 15:16-0400 Respiratory rate 15 /min [facility] 12-31-2022 15:16-0400 SaO2% (BldA) [Mass fraction] 93 % [facility] 12-31-2022 15:16-0400 Systolic blood pressure 118 mm[Hg] [facility] 12-26-2022 14:04-0400 Diastolic blood pressure 90 mm[Hg] Ryan May MD Work Phone: [facility] 12-26-2022 14:04-0400 Heart rate 50 /min Ryan May MD Work Phone: [facility] 12-26-2022 14:04-0400 Systolic blood pressure 207 mm[Hg] Ryan aMy MD Work Phone: [facility] 10-22-2022 21:40-0400 Diastolic Blood Pressure Non-Invasive [address] PRIYANKA FRANCO MD [facility] 10-22-2022 21:40-0400 Heart rate 88 /min DR PRIYANKA FRANCO MD [facility] 10-22-2022 21:40-0400 Respiratory rate 20 /min DR PRIYANKA FRANCO MD [facility] 10-22-2022 21:40-0400 Systolic Blood Pressure Non-Invasive [address] PRIYANKA FRANCO MD [facility] 10-22-2022 19:59-[address] PRIYANKA FRANCO MD [facility] 10-22-2022 19:59-0400 Body temperature 98.6 [degF] DR PRIYANKA FRANCO MD [facility] 10-22-2022 19:59-0400 Diastolic Blood Pressure Non-Invasive [address] PRIYANKA FRANCO MD [facility] 10-22-2022 19:59-0400 Heart rate 97 /min DR PRIYANKA FRANCO MD [facility] 10-22-2022 19:59-0400 Respiratory rate 21 /min DR PRIYANKA FRANCO MD [facility] 10-22-2022 19:59-0400 Systolic Blood Pressure Non-Invasive [address] PRIYANKA FRANCO MD [facility] 10-21-2022 18:30-0400 Body height 172.[address] [facility] 10-21-2022 18:30-0400 Body temperature 97.5 [degF] [facility] 10-21-2022 18:30-0400 Diastolic blood pressure 88 mm[Hg] [facility] 10-21-2022 18:30-0400 Heart rate 99 /min [facility] 10-21-2022 18:30-0400 Respiratory rate 16 /min [facility] 10-21-2022 18:30-0400 SaO2% (BldA) [Mass fraction] 96 % [facility] 10-21-2022 18:30-0400 Systolic blood pressure 168 mm[Hg] [facility] 08-27-2022 10:51-0500 Diastolic blood pressure 91 mm[Hg] Daija Morton MD Work Phone: [facility] 08-27-2022 10:51-0500 Heart rate 69 /min Daija Morton MD Work Phone: [facility] 08-27-2022 10:51-0500 Systolic blood pressure 212 mm[Hg] Daija Morton MD Work Phone: [facility] 08-27-2022 10:47-0500 Body temperature 97 [degF] Daija Morton MD Work Phone: [facility] 08-27-2022 10:47-0500 Body weight 71.22 kg Daija Morton MD Work Phone: [facility] 08-27-2022 10:47-0500 Respiratory rate 28 /min Daija Morton MD Work Phone: [facility] 08-27-2022 10:47-0500 SaO2% (BldA) [Mass fraction] 95 % Daija Morton MD Work Phone: [facility] 03-10-2022 10:10-0400 Diastolic blood pressure 90 mm[Hg] Anjel Older MUNICIPAL FIREFIGHTER.SPECIALIST ICU Work Phone: [facility] 03-10-2022 10:10-0400 Heart rate 88 /min Anjel Older MUNICIPAL FIREFIGHTER.SPECIALIST ICU Work Phone: [facility] 03-10-2022 10:10-0400 Respiratory rate 16 /min Anjel Older MUNICIPAL FIREFIGHTER.SPECIALIST ICU Work Phone: [facility] 03-10-2022 10:10-0400 Systolic blood pressure 158 mm[Hg] Anjel Older MUNICIPAL FIREFIGHTER.SPECIALIST ICU Work Phone: [facility] 03-08-2022 23:13-0400 Diastolic blood pressure 93 mm[Hg] Dr. Daija Morton Work Phone: [facility] Work Phone: 03-08-2022 23:13-0400 Heart rate 71 /min Dr. Daija Morton Work Phone: [facility] Work Phone: 03-08-2022 23:13-0400 Inhaled oxygen flow rate 3 L/min Dr. Daija Morton Work Phone: [facility] Work Phone: 03-08-2022 23:13-0400 Respiratory rate 16 /min Dr. Daija Morton Work Phone: [facility] Work Phone: 03-08-2022 23:13-0400 SaO2% (BldA) [Mass fraction] 96 % Dr. Daija Morton Work Phone: [facility] Work Phone: 03-08-2022 23:13-0400 Systolic blood pressure 178 mm[Hg] Dr. Daija Morton Work Phone: [facility] Work Phone: 03-08-2022 17:31-0400 Body height 172.[address] aDija Morton Work Phone: [facility] Work Phone: 03-08-2022 17:31-0400 Body mass index (BMI) [Ratio] 20.5 kg/m2 Dr. Daija Morton Work Phone: [facility] Work Phone: 03-08-2022 17:31-0400 Body temperature 97.6 [degF] Dr. Daija Morton Work Phone: [facility] Work Phone: 03-08-2022 17:31-0400 Body weight 61.[address] Daija Morton Work Phone: [facility] Work Phone: 03-07-2022 17:28-0400 Respiratory rate 18 /min Dr. Daija Morton Work Phone: [facility] Work Phone: 03-07-2022 15:23-0400 Body height 172.[address] Daija Morton Work Phone: [facility] Work Phone: 03-07-2022 15:23-0400 Body mass index (BMI) [Ratio] 20.5 kg/m2 Dr. Daija Morton Work Phone: [facility] Work Phone: 03-07-2022 15:23-0400 Body temperature 97.4 [degF] Dr. Daija Morton Work Phone: [facility] Work Phone: 03-07-2022 15:23-0400 Body weight 61.[address] Daija Morton Work Phone: [facility] Work Phone: 03-07-2022 15:23-0400 Diastolic blood pressure 88 mm[Hg] Dr. Daija Morton Work Phone: [facility] Work Phone: 03-07-2022 15:23-0400 Heart rate 84 /min Dr. Daija Morton Work Phone: [facility] Work Phone: 03-07-2022 15:23-0400 SaO2% (BldA) [Mass fraction] 93 % Dr. Daija Morton Work Phone: [facility] Work Phone: 03-07-2022 15:23-0400 Systolic blood pressure 193 mm[Hg] Dr. Daija Morton Work Phone: [facility] Work Phone: 03-02-2022 19:05-0400 Diastolic blood pressure 81 mm[Hg] Dr. Daija Morton Work Phone: [facility] Work Phone: 03-02-2022 19:05-0400 Heart rate 56 /min Dr. Daija Morton Work Phone: [facility] Work Phone: 03-02-2022 19:05-0400 Respiratory rate 18 /min Dr. Daija Morton Work Phone: [facility] Work Phone: 03-02-2022 19:05-0400 SaO2% (BldA) [Mass fraction] 92 % Dr. Daija Morton Work Phone: [facility] Work Phone: 03-02-2022 19:05-0400 Systolic blood pressure 209 mm[Hg] Dr. Daija Morton Work Phone: [facility] Work Phone: 03-02-2022 17:41-0400 Body temperature 97.5 [degF] Dr. Daija Morton Work Phone: [facility] Work Phone: 03-02-2022 15:10-0400 Body height 172.[address] Daija Morton Work Phone: [facility] Work Phone: 03-02-2022 15:10-0400 Body mass index (BMI) [Ratio] 23.5 kg/m2 Dr. Daija Morton Work Phone: [facility] Work Phone: 03-02-2022 15:10-0400 Body weight 70.[address] Daija Morton Work Phone: [facility] Work Phone: 01-31-2022 13:59-0400 Body height 172.7 cm Ryan May MD Work Phone: [facility] 01-31-2022 13:59-0400 Body weight 68.49 kg Ryan May MD Work Phone: [facility] 01-31-2022 13:59-0400 Diastolic blood pressure 99 mm[Hg] Ryan May MD Work Phone: [facility] 01-31-2022 13:59-0400 Systolic blood pressure 168 mm[Hg] Ryan May MD Work Phone: [facility] 01-28-2022 15:53-0400 Diastolic blood pressure 88 mm[Hg] Dr. Daija Morton Work Phone: [facility] Work Phone: 01-28-2022 15:53-0400 Heart rate 54 /min Dr. Daija Morton Work Phone: [facility] Work Phone: 01-28-2022 15:53-0400 Respiratory rate 20 /min Dr. Daija Morton Work Phone: [facility] Work Phone: 01-28-2022 15:53-0400 SaO2% (BldA) [Mass fraction] 97 % Dr. Daija Morton Work Phone: [facility] Work Phone: 01-28-2022 15:53-0400 Systolic blood pressure 200 mm[Hg] Dr. Daija Morton Work Phone: [facility] Work Phone: 01-28-2022 14:03-0400 Body height 172.[address] Daija Morton Work Phone: [facility] Work Phone: 01-28-2022 14:03-0400 Body mass index (BMI) [Ratio] 22.9 kg/m2 Dr. Daija Morton Work Phone: [facility] Work Phone: 01-28-2022 14:03-0400 Body temperature 96.8 [degF] Dr. Daija Morton Work Phone: [facility] Work Phone: 01-28-2022 14:03-0400 Body weight 68.[address] Daija Morton Work Phone: [facility] Work Phone: 01-28-2022 11:41-0400 Diastolic blood pressure 92 mm[Hg] Anjel Older MUNICIPAL FIREFIGHTER.SPECIALIST ICU Work Phone: [facility] 01-28-2022 11:41-0400 Heart rate 56 /min Anjel Older MUNICIPAL FIREFIGHTER.SPECIALIST ICU Work Phone: [facility] 01-28-2022 11:41-0400 Systolic blood pressure 200 mm[Hg] Anjel Older MUNICIPAL FIREFIGHTER.SPECIALIST ICU Work Phone: [facility] 01-28-2022 10:57-0400 Body weight 68.49 kg Anjel Older MUNICIPAL FIREFIGHTER.SPECIALIST ICU Work Phone: [facility] 01-28-2022 10:57-0400 Respiratory rate 16 /min Anjel Braga MUNICIPAL FIREFIGHTER.SPECIALIST ICU Work Phone: [facility] 01-20-2022 13:23-0400 Diastolic blood pressure 102 mm[Hg] Ye Coello MD Work Phone: [facility] 01-20-2022 13:23-0400 Heart rate 61 /min Ye Coello MD Work Phone: [facility] 01-20-2022 13:23-0400 SaO2% (BldA) [Mass fraction] 94 % Ye Coello MD Work Phone: [facility] 01-20-2022 13:23-0400 Systolic blood pressure 172 mm[Hg] Ye Coello MD Work Phone: [facility] 01-14-2022 10:26-0400 Body temperature 98.2 [degF] Harriett Albert MUNICIPAL FIREFIGHTER.MEDIA TECHNICIAN Work Phone: [facility] 01-14-2022 10:26-0400 Body weight 69.67 kg Harriett Albert MUNICIPAL FIREFIGHTER.MEDIA TECHNICIAN Work Phone: [facility] 01-14-2022 10:26-0400 Diastolic blood pressure 80 mm[Hg] Harriett Albert MUNICIPAL FIREFIGHTER.MEDIA TECHNICIAN Work Phone: [facility] 01-14-2022 10:26-0400 Heart rate 78 /min Harriett Albert MUNICIPAL FIREFIGHTER.MEDIA TECHNICIAN Work Phone: [facility] 01-14-2022 10:26-0400 Respiratory rate 16 /min Harriett Albert MUNICIPAL FIREFIGHTER.MEDIA TECHNICIAN Work Phone: [facility] 01-14-2022 10:26-0400 SaO2% (BldA) [Mass fraction] 95 % Harriett Albert MUNICIPAL FIREFIGHTER.MEDIA TECHNICIAN Work Phone: [facility] 01-14-2022 10:26-0400 Systolic blood pressure 186 mm[Hg] Harriett Albert MUNICIPAL FIREFIGHTER.MEDIA TECHNICIAN Work Phone: [facility] 11-30-2021 15:02-0400 Heart rate 75 /min Dr. Daija Morton Work Phone: [facility] Work Phone: 11-30-2021 15:02-0400 Respiratory rate 17 /min Dr. Daija Morton Work Phone: [facility] Work Phone: 11-30-2021 13:57-0400 Body temperature 97.4 [degF] Dr. Daija Morton Work Phone: [facility] Work Phone: 11-30-2021 13:57-0400 Diastolic blood pressure 67 mm[Hg] Dr. Daija Morton Work Phone: [facility] Work Phone: 11-30-2021 13:57-0400 SaO2% (BldA) [Mass fraction] 93 % Dr. Daija Morton Work Phone: [facility] Work Phone: 11-30-2021 13:57-0400 Systolic blood pressure 161 mm[Hg] Dr. Daija Morton Work Phone: [facility] Work Phone: 11-30-2021 11:25-0400 Inhaled oxygen flow rate 3 L/min Dr. Daija Morton Work Phone: [facility] Work Phone: 11-29-2021 12:48-0400 Body height 172.[address] Daija Morton Work Phone: [facility] Work Phone: 11-29-2021 12:48-0400 Body weight 71.[address] Daija Morton Work Phone: [facility] Work Phone: 11-27-2021 05:25-0400 Body mass index (BMI) [Ratio] 24 kg/m2 Dr. Daija Morton Work Phone: [facility] Work Phone: 11-25-2021 21:36-0400 Body temperature 97.8 [degF] Dr. Daija Morton Work Phone: [facility] Work Phone: 11-25-2021 21:36-0400 Diastolic blood pressure 40 mm[Hg] Dr. Daija Morton Work Phone: [facility] [facility] Work Phone: 11-25-2021 21:36-0400 Heart rate 66 /min Dr. Daija Morton Work Phone: [facility] Work Phone: 11-25-2021 21:36-0400 Respiratory rate 16 /min Dr. Daija Morton Work Phone: [facility] Work Phone: 11-25-2021 21:36-0400 SaO2% (BldA) [Mass fraction] 96 % Dr. Daija Morton Work Phone: [facility] Work Phone: 11-25-2021 21:36-0400 Systolic blood pressure 133 mm[Hg] Dr. Daija Morton Work Phone: [facility] Work Phone: 11-25-2021 17:29-0400 Body height 172.[address] Daija Morton Work Phone: [facility] Work Phone: 11-25-2021 17:29-0400 Body mass index (BMI) [Ratio] 24.7 kg/m2 Dr. Daija Morton Work Phone: [facility] Work Phone: 11-25-2021 17:29-0400 Body weight 73.[address] Daija Morton Work Phone: [facility] Work Phone: 11-16-2021 14:37-0400 Body height 172.7 cm Estephaniajuice Pierre MUNICIPAL FIREFIGHTER.SPECIALIST ICU Work Phone: [facility] 11-16-2021 14:37-0400 Body weight 71.67 kg Estephania Ignacio MUNICIPAL FIREFIGHTER.SPECIALIST ICU Work Phone: [facility] 11-16-2021 14:37-0400 Diastolic blood pressure 68 mm[Hg] Estephania Pierre MUNICIPAL FIREFIGHTER.SPECIALIST ICU Work Phone: [facility] 11-16-2021 14:37-0400 Heart rate 64 /min Estephaniajuice Pierre MUNICIPAL FIREFIGHTER.SPECIALIST ICU Work Phone: [facility] 11-16-2021 14:37-0400 SaO2% (BldA) [Mass fraction] 100 % Estephaniajuice Pierre MUNICIPAL FIREFIGHTER.SPECIALIST ICU Work Phone: [facility] 11-16-2021 14:37-0400 Systolic blood pressure 162 mm[Hg] Estephaniajuice Pierre MUNICIPAL FIREFIGHTER.SPECIALIST ICU Work Phone: [facility] 11-08-2021 12:50-0400 Heart rate 73 /min Respiratory Wstr Work Phone: [facility] 11-08-2021 12:50-0400 Respiratory rate 14 /min Respiratory Wstr Work Phone: [facility] 11-08-2021 12:50-0400 SaO2% (BldA) [Mass fraction] 97 % Respiratory Wstr Work Phone: [facility] 11-05-2021 11:22-0400 Body weight 70.31 kg Emilie Shania PA-C Work Phone: [facility] 11-05-2021 11:22-0400 Diastolic blood pressure 68 mm[Hg] Emilie Shania PA-C Work Phone: [facility] 11-05-2021 11:22-0400 Heart rate 71 /min Emilie Shania PA-C Work Phone: [facility] 11-05-2021 11:22-0400 Respiratory rate 20 /min Emilie Shania PA-C Work Phone: [facility] 11-05-2021 11:22-0400 SaO2% (BldA) [Mass fraction] 99 % Emilie Shania PA-C Work Phone: [facility] 11-05-2021 11:22-0400 Systolic blood pressure 140 mm[Hg] Emilie Shania PA-C Work Phone: [facility] 10-21-2021 11:30-0400 Diastolic blood pressure 65 mm[Hg] Mi Nurse Work Phone: [facility] 10-21-2021 11:30-0400 Heart rate 81 /min Mi Nurse Work Phone: [facility] 10-21-2021 11:30-0400 Systolic blood pressure 155 mm[Hg] Mi Nurse Work Phone: [facility] 10-13-2021 13:00-0400 Body height 172.7 cm Ye Coello MD Work Phone: [facility] 10-13-2021 13:00-0400 Body weight 71.67 kg Ye Coello MD Work Phone: [facility] 10-13-2021 13:00-0400 Diastolic blood pressure 93 mm[Hg] Ye Coello MD Work Phone: [facility] 10-13-2021 13:00-0400 Heart rate 66 /min Ye Coello MD Work Phone: [facility] 10-13-2021 13:00-0400 Systolic blood pressure 217 mm[Hg] Ye Coello MD Work Phone: [facility] 10-08-2021 17:14-0400 Diastolic blood pressure 62 mm[Hg] Dr. Daija Morton Work Phone: [facility] Work Phone: 10-08-2021 17:14-0400 Heart rate 58 /min Dr. Daija Morton Work Phone: [facility] Work Phone: 10-08-2021 17:14-0400 Respiratory rate 18 /min Dr. Daija Morton Work Phone: [facility] Work Phone: 10-08-2021 17:14-0400 SaO2% (BldA) [Mass fraction] 98 % Dr. Daija Morton Work Phone: [facility] Work Phone: 10-08-2021 17:14-0400 Systolic blood pressure 149 mm[Hg] Dr. Daija Morton Work Phone: [facility] Work Phone: 10-08-2021 14:12-0400 Body height 172.[address] Daija Morton Work Phone: [facility] Work Phone: 10-08-2021 14:12-0400 Body mass index (BMI) [Ratio] 24.7 kg/m2 Dr. Daija Morton Work Phone: [facility] Work Phone: 10-08-2021 14:12-0400 Body temperature 98.1 [degF] Dr. Daija Morton Work Phone: [facility] Work Phone: 10-08-2021 14:12-0400 Body weight 73.[address] Daija Morton Work Phone: [facility] Work Phone: 10-07-2021 11:17-0400 Body temperature 97.59 [degF] Anjel Older MUNICIPAL FIREFIGHTER.SPECIALIST ICU Work Phone: [facility] 10-07-2021 11:17-0400 Body weight 70.31 kg Anjel Older MUNICIPAL FIREFIGHTER.SPECIALIST ICU Work Phone: [facility] 10-07-2021 11:17-0400 Diastolic blood pressure 90 mm[Hg] Anjel Older MUNICIPAL FIREFIGHTER.SPECIALIST ICU Work Phone: [facility] 10-07-2021 11:17-0400 Heart rate 67 /min Anjel Older MUNICIPAL FIREFIGHTER.SPECIALIST ICU Work Phone: [facility] 10-07-2021 11:17-0400 Respiratory rate 12 /min Anjel Older MUNICIPAL FIREFIGHTER.SPECIALIST ICU Work Phone: [facility] 10-07-2021 11:17-0400 SaO2% (BldA) [Mass fraction] 96 % Anjel Older MUNICIPAL FIREFIGHTER.SPECIALIST ICU Work Phone: [facility] 10-07-2021 11:17-0400 Systolic blood pressure 178 mm[Hg] Anjel Older MUNICIPAL FIREFIGHTER.SPECIALIST ICU Work Phone: [facility] 09-29-2021 16:20-0400 Body temperature 98.24 [degF] DR PRIYANKA FRANCO MD [facility] 09-29-2021 16:20-0400 Diastolic blood pressure 91 mm[Hg] DR PRIYANKA FRANCO MD [facility] 09-29-2021 16:20-0400 Heart rate 80 /min DR PRIYANKA FRANCO MD [facility] 09-29-2021 16:20-0400 Respiratory rate 18 /min DR PRIYANKA FRANCO MD [facility] 09-29-2021 16:20-0400 Systolic blood pressure 189 mm[Hg] DR PRIYANKA FRANCO MD [facility] 09-17-2021 20:16-0400 Body temperature 97.3 [degF] Dr. Daija Morton Work Phone: [facility] Work Phone: 09-17-2021 20:16-0400 Diastolic blood pressure 80 mm[Hg] Dr. Daija Morton Work Phone: [facility] Work Phone: 09-17-2021 20:16-0400 Heart rate 85 /min Dr. Daija Morton Work Phone: [facility] Work Phone: 09-17-2021 20:16-0400 Respiratory rate 17 /min Dr. Daija Morton Work Phone: [facility] Work Phone: 09-17-2021 20:16-0400 SaO2% (BldA) [Mass fraction] 96 % Dr. Daija Morton Work Phone: [facility] Work Phone: 09-17-2021 20:16-0400 Systolic blood pressure 171 mm[Hg] Dr. Daija Morton Work Phone: [facility] Work Phone: 09-17-2021 16:56-0400 Body height 172.[address] Daija Morton Work Phone: [facility] Work Phone: 09-17-2021 16:56-0400 Body mass index (BMI) [Ratio] 23.7 kg/m2 Dr. Daija Morton Work Phone: [facility] Work Phone: 09-17-2021 16:56-0400 Body weight 70.[address] Daija Morton Work Phone: [facility] Work Phone: 09-15-2021 17:40-0400 Diastolic blood pressure 73 mm[Hg] Anjel Older MUNICIPAL FIREFIGHTER.SPECIALIST ICU Work Phone: [facility] 09-15-2021 17:40-0400 Systolic blood pressure 170 mm[Hg] Anjel Older MUNICIPAL FIREFIGHTER.SPECIALIST ICU Work Phone: [facility] 09-15-2021 16:57-0400 Body weight 71.22 kg Anjel Older MUNICIPAL FIREFIGHTER.SPECIALIST ICU Work Phone: [facility] 09-15-2021 16:57-0400 Heart rate 68 /min Anjel Older MUNICIPAL FIREFIGHTER.SPECIALIST ICU Work Phone: [facility] 09-15-2021 16:57-0400 Respiratory rate 16 /min Anjel Older MUNICIPAL FIREFIGHTER.SPECIALIST ICU Work Phone: [facility] 09-15-2021 16:18-0400 Body height 172.7 cm Kaye Ortega MD Work Phone: [facility] 09-15-2021 16:18-0400 Body temperature 97.39 [degF] Kaye Ortega MD Work Phone: [facility] 09-15-2021 16:18-0400 Body weight 71.67 kg Kaye Ortega MD Work Phone: [facility] 09-15-2021 16:18-0400 Diastolic blood pressure 72 mm[Hg] Kaye Ortega MD Work Phone: [facility] 09-15-2021 16:18-0400 Heart rate 78 /min Kaye Ortega MD Work Phone: [facility] 09-15-2021 16:18-0400 SaO2% (BldA) [Mass fraction] 96 % Kaye Ortega MD Work Phone: [facility] 09-15-2021 16:18-0400 Systolic blood pressure 138 mm[Hg] Kaye Ortega MD Work Phone: [facility] 08-21-2021 09:30-0500 Body temperature 97.6 [degF] Dr. Daija Morton Work Phone: [facility] Work Phone: 08-21-2021 09:30-0500 Diastolic blood pressure 69 mm[Hg] Dr. Daija Morton Work Phone: [facility] Work Phone: 08-21-2021 09:30-0500 Heart rate 61 /min Dr. Daija Morton Work Phone: [facility] Work Phone: 08-21-2021 09:30-0500 Inhaled oxygen flow rate 3 L/min Dr. Daija Morton Work Phone: [facility] Work Phone: 08-21-2021 09:30-0500 Respiratory rate 18 /min Dr. Daija Morton Work Phone: [facility] Work Phone: 08-21-2021 09:30-0500 SaO2% (BldA) [Mass fraction] 98 % Dr. Daija Morton Work Phone: [facility] Work Phone: 08-21-2021 09:30-0500 Systolic blood pressure 183 mm[Hg] Dr. Daija Morton Work Phone: [facility] Work Phone: 08-21-2021 08:30-0500 Body temperature 97.6 [degF] Dr. Daija Morton Work Phone: [facility] Work Phone: 08-21-2021 08:30-0500 Diastolic blood pressure 69 mm[Hg] Dr. Daija Morton Work Phone: [facility] Work Phone: 08-21-2021 08:30-0500 Heart rate 61 /min Dr. Daija Morton Work Phone: [facility] Work Phone: 08-21-2021 08:30-0500 Respiratory rate 18 /min Dr. Daija Morton Work Phone: [facility] Work Phone: 08-21-2021 08:30-0500 SaO2% (BldA) [Mass fraction] 98 % Dr. Daija Morton Work Phone: [facility] Work Phone: 08-21-2021 08:30-0500 Systolic blood pressure 183 mm[Hg] Dr. Daija Morton Work Phone: [facility] Work Phone: 08-20-2021 06:18-0500 Body mass index (BMI) [Ratio] 23.7 kg/m2 Dr. Daija Morton Work Phone: [facility] Work Phone: 08-20-2021 06:18-0500 Body weight [address] Daija Morton Work Phone: [facility] Work Phone: 08-20-2021 05:18-0500 Body mass index (BMI) [Ratio] 23.7 kg/m2 Dr. Daija Morton Work Phone: [facility] Work Phone: 08-20-2021 05:18-0500 Body weight [address] Daija Morton Work Phone: [facility] Work Phone: 08-12-2021 03:26-0500 Diastolic blood pressure 89 mm[Hg] Dr. Daija Morton Work Phone: [facility] Work Phone: 08-12-2021 03:26-0500 Heart rate 70 /min Dr. Daija Morton Work Phone: [facility] Work Phone: 08-12-2021 03:26-0500 Respiratory rate 18 /min Dr. Daija Morton Work Phone: [facility] Work Phone: 08-12-2021 03:26-0500 SaO2% (BldA) [Mass fraction] 93 % Dr. Daija Morton Work Phone: [facility] Work Phone: 08-12-2021 03:26-0500 Systolic blood pressure 211 mm[Hg] Dr. Daija Morton Work Phone: [facility] Work Phone: 08-11-2021 23:32-0500 Body mass index (BMI) [Ratio] 24.8 kg/m2 Dr. Daija Morton Work Phone: [facility] Work Phone: 08-11-2021 23:32-0500 Body temperature 97.5 [degF] Dr. Daija Morton Work Phone: [facility] Work Phone: 08-11-2021 23:32-0500 Body weight 74.[address] Daija Morton Work Phone: [facility] Work Phone: 06-12-2021 15:55-0500 Diastolic blood pressure 81 mm[Hg] Dr. Daija Morton Work Phone: [facility] Work Phone: 06-12-2021 15:55-0500 Heart rate 61 /min Dr. Daija Morton Work Phone: [facility] Work Phone: 06-12-2021 15:55-0500 Systolic blood pressure 182 mm[Hg] Dr. Daija Morton Work Phone: [facility] Work Phone: 06-12-2021 15:15-0500 Body mass index (BMI) [Ratio] 24.6 kg/m2 Dr. Daija Morotn Work Phone: [facility] Work Phone: 06-12-2021 15:15-0500 Body temperature 96.8 [degF] Dr. Daija Morton Work Phone: [facility] Work Phone: 06-12-2021 15:15-0500 Body weight 73.[address] Daija Morton Work Phone: [facility] Work Phone: 06-12-2021 15:15-0500 Respiratory rate 18 /min Dr. Daija Morton Work Phone: [facility] Work Phone: 06-12-2021 15:15-0500 SaO2% (BldA) [Mass fraction] 96 % Dr. Daija Morton Work Phone: [facility] Work Phone: 06-04-2021 23:37-0500 Respiratory rate 18 /min Dr. Daija Morton Work Phone: [facility] Work Phone: 06-04-2021 22:01-0500 Body mass index (BMI) [Ratio] 23.6 kg/m2 Dr. Daija Morton Work Phone: [facility] Work Phone: 06-04-2021 22:01-0500 Body temperature 97.1 [degF] Dr. Daija Morton Work Phone: [facility] Work Phone: 06-04-2021 22:01-0500 Body weight 70.[address] Daija Morton Work Phone: [facility] Work Phone: 06-04-2021 22:01-0500 Diastolic blood pressure 99 mm[Hg] Dr. Daija Morton Work Phone: [facility] Work Phone: 06-04-2021 22:01-0500 Heart rate 87 /min Dr. Daija Morton Work Phone: [facility] Work Phone: 06-04-2021 22:01-0500 SaO2% (BldA) [Mass fraction] 97 % Dr. Daija Morton Work Phone: [facility] Work Phone: 06-04-2021 22:01-0500 Systolic blood pressure 202 mm[Hg] Dr. Daija Morton Work Phone: [facility] Work Phone: Encounters Encounter Date Encounter Type Care Provider Facility Start: 03-18-2025 End: 03-18-2025 Emergency department patient visit MAGDALENE POWELL DO [facility] Start: 03-14-2025 End: 03-14-2025 ambulatory Efewongbe Oleghe Facility:[facility] Start: 03-14-2025 End: 03-14-2025 Emergency department patient visit Efroeongbe Suzye Facility:[facility] Start: 03-13-2025 End: 03-13-2025 ambulatory Josefa Doss RN UNIT MANAGER Facility:[facility] Start: 03-11-2025 ambulatory Efewongbe Oleghe OLS Fa cility:[facility] Start: 03-04-2025 ambulatory Efewongbe Oleghe Facili ty:[facility] Start: 02-25-2025 ambulatory Efewongbe Oleghe OLS Fa cility:[facility] Start: 02-24-2025 End: 02-24-2025 ambulatory Josefa Doss RN UNIT MANAGER Facility:[facility] Start: 02-18-2025 ambulatory Efewongbe Oleghe OLS Fa cility:[facility] Start: 02-18-2025 Lorraine Ashton - [place] Start: 02-11-2025 ambulatory Efewongbe Oleghe OLS Fa cility:[facility] Start: 02-11-2025 Lorraine Ashton - [place] Start: 02-09-2025 ambulatory Efewongbe Oleghe OLS Fa cility:[facility] Start: 02-09-2025 Lorraine Ashton - [place] Start: 02-04-2025 End: 02-04-[address] Daija Morton MD Work Phone: -[facility] Start: 02-04-2025 End: 02-04-2025 Josefa Doss RN UNIT MANAGER-C -[facility] Work Phone: Start: 02-03-2025 ambulatory Efewongbe Oleghe OLS Fa cility:[facility] Start: 02-03-2025 Lorraine Johns Start: 01-27-2025 ambulatory Efml Mena OLS Fa cility:[facility] Start: 01-27-2025 Lorraine Johns Start: 01-23-2025 End: 01-23-2025 Hannah Busch RN UNIT MANAGERAshtyn -[facility] Work Phone: Start: 01-23-2025 End: 01-23-[address] Daija Morton MD Work Phone: -[facility] Start: 01-21-2025 End: 01-21-2025 Mackenzie SALDIVAR -[facility] Work Phone: Start: 01-21-2025 End: 01-21-[address] Daija Morton MD Work Phone: -[facility] Start: 01-20-2025 ambulatory Lorraine RAIN Fa cility:[facility] Start: 01-20-2025 Lorraine Johns Start: 01-17-2025 End: 01-17-2025 Refill Daija Morton MD Work Phone: [facility] [place] Comment on above: Refill Request Start: 01-13-2025 ambulatory Lorraine RAIN Fa cility:[facility] Start: 01-13-2025 Lorraine Johns Start: 01-09-2025 End: 01-09-[address] Daija Morton MD Work Phone: -[facility] Start: 01-09-2025 End: 01-09-2025 Josefa CORTEZ -[facility] Work Phone: Start: 01-08-2025 Dr. [facility] Start: 01-07-2025 Dr. [facility] Work [facility]: Start: 01-07-2025 Paulino Zuni DO -[facility] Start: 01-06-2025 ambulatory Lorraine Mena Facili ty:[facility] Start: 01-06-2025 Paulino Friend DO -[facility] Start: 01-05-2025 End: 01-05-2025 ambulatory Efml Almontee Facility:[facility] Start: 01-05-2025 End: 01-05-2025 Dr. Geronimo Downey MD -[place] [facility] Work Phone: Start: 01-05-2025 Paulino Zuni DO -[facility] Start: 01-05-2025 End: 01-08-2025 ambulatory Ryan [...] ambulatory Dr. Daija Morton MD Work Phone: -[facility] Start: 12-31-2024 End: 12-31-2024 Dr. Lorraine Mena MD -[facility] Work Phone: Start: 12-31-2024 ambulatory Lorraine Mena OLS Fa cility:[facility] Start: 12-31-2024 Lorraine Mena MD [facility] Start: 12-30-2024 ambulatory Lorraine Mena OLS Fa cility:[facility] Start: 12-30-2024 Lorraine Mena MD -[facility] Start: 12-27-2024 End: 12-27-[address] Daija Morton MD Work Phone: -[facility] Start: 12-27-2024 End: 12-27-2024 Josefa Doss RN UNIT MANAGER-C -[facility] Work Phone: Start: 12-26-2024 End: 12-26-2024 Follow-up encounter Anjel Omi YANGN.SPECIALIST ICU Work Phone: [facility] [place] Start: 12-26-2024 Dr. Shilpa edwards MD -[facility] Work Phone: Start: 12-25-2024 Dr. Shilpa edwards MD -[facility] Work Phone: Start: 12-24-2024 Paulinojoann Henderson [facility] Start: 12-24-2024 Dr. Shilpa edwards MD -[facility] Work Phone: Start: 12-23-2024 Paulino [facility] Start: 12-23-2024 [facility] Start: 12-23-2024 Dr. Raul Jensen MD -[facility] -[facility] Start: 12-23-2024 Dr. Shilpa edwards MD -[facility] Work Phone: Start: 12-22-2024 Dr. Lisha Talamantes DO -[facility] Work Phone: Start: 12-21-2024 Dr. Lisha Talamantes DO -[facility] Work Phone: Start: 12-20-2024 Dr. Lisha Talamantes DO -[facility] Work Phone: Start: 12-19-2024 Dr. Lisha Talamantes DO -[facility] Work Phone: Start: 12-18-2024 ambulatory [facility] Start: 12-18-2024 End: 12-26-2024 Evaluation and management of inpatient Dr. Daija Morton MD Work Phone: -Progressive Care Unit Start: 12-18-2024 End: 12-26-2024 Dr. Shilpa Contreras MD -[facility] Work Phone: Start: 12-18-2024 ambulatory Milton Guajardo Facility:[facility] Start: 12-18-2024 Dr. Milton Guajardo MD -[facility] Start: 12-17-[address] Germain Morton MD Work Phone: -[facility] Start: 12-17-2024 Dr. Roman Patel DO -[facility] Care Unit Work Phone: Start: 12-17-2024 End: 12-20-2024 ambulatory Daija Morton MD Work Phone: Internal Medicine [place] [phone] Start: 12-17-2024 End: 12-24-2024 Telephone encounter Daija Morton MD Work Phone: [facility] [place] Comment on above: Patient Update Start: 12-16-2024 End: 12-17-2024 Refill Daija Morton MD Work Phone: [facility] [place] Comment on above: Refill Request SOB (shortness of br eath) (Primary Dx) Start: 12-16-2024 Dr. Lisha Talamantes DO -[facility] Work Phone: Start: 12-15-2024 Dr. Lisha Talamantes DO -[facility] Work Phone: Start: 12-14-2024 Dr. Lisha Talamantes DO -[facility] Work Phone: Start: 12-13-2024 Non-patient / Non-visit Dr. Kisha Contreras MD -[facility] Work Phone: Start: 12-13-2024 End: [...] hospital visit by physician Xr [facility] [place] Work Phone: Radiology Comment on above: Wheezing [R06.2] Start: 12-12-2024 End: 12-12-2024 ambulatory [facility] Facility:[facility] Start: 12-12-2024 End: 12-12-2024 Office outpatient visit 25 minutes Anjel Braga APRN.CNP Work Phone: [facility] [place] Comment on above: Other emphysema (HCC ) (Primary Dx); Smoker; Wheezing; Lower abdominal tenderness; Loose stools; On home oxygen therapy; Primary hypertension; Left leg pain; Falls; Weakness Start: 12-12-2024 End: 12-12-2024 ambulatory [facility] Facility:[facility] Start: 12-09-2024 End: 12-09-2024 Telephone encounter Daija Morton MD Work Phone: [facility] [place] Comment on above: Home Care Management ; Patient Update Start: 12-06-2024 End: 12-06-2024 Telephone encounter Daija Morton MD Work Phone: [facility] [place] Comment on above: [facility] update Start: 12-03-2024 End: 12-04-2024 Telephone encounter Daija Morton MD Work Phone: [facility] [place] Comment on above: Home Health Orders Start: 12-02-2024 ambulatory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 Start: 10-17-2019 Antibody screen Comment on above: Performed By: #### TSCR ####[place] [id number] Start: 10-08-2019 Electrocardiogram Start: 10-08-2019 Antibody screen Comment on above: Performed By: #### TSCR ####[place] [id number] Start: 09-12-2019 Antibody screen Comment on above: Performed By: #### [id number] #### Ivan[place] [id number] Start: 03-19-2019 Lipid 1996 panel - Serum or Plasma Anjel pantoja APRN.SPECIALIST ICU Work Phone: Start: 06-25-[address] PRIYANKA [...] Detail Author Start: 06-04-2031 Urine microalbumin profile [facility] Start: 12-13-2027 Diabetes Screening Diabetes Screening [facility] Start: 11-27-2026 Colonoscopy COLONOSCOPY [facility] Start: 11-27-2026 COLORECTAL CANCER SCREENING COLORECTAL CANCER SCREENING [facility] Start: 11-27-2026 Screening for malignant neoplasm of colon [facility] Start: 12-12-2025 Annual PCP Team Chronic Disease Visit Annual PCP Team Chronic Disease Visit [facility] Start: 02-17-2025 Influenza vaccination [facility] Start: 02-04-2025 DIABETES SCREEN DIABETES SCREEN [facility] Start: 02-04-2025 Diabetes Screening Diabetes Screening [facility] Start: 01-08-2025 Patient discharge [facility] Start: 01-08-2025 [facility] Start: 01-07-2025 Referral to occupational therapist [facility] Start: 01-07-2025 Referral to service [facility] Start: 01-05-2025 Contact precautions [facility] Start: 01-05-2025 Referral to gastroenterology service [facility] Start: 01-05-2025 Following clinical pathway protocol [facility] Start: 01-05-2025 Ambulation without limitation [facility] Start: 01-05-2025 Assessment of risk of venous thromboembolism [facility] Start: 01-05-2025 Elevation of head of bed [facility] Start: 01-05-2025 Inhalation therapy procedure [facility] Start: 01-05-2025 Insertion of catheter into peripheral vein [facility] Start: 01-05-2025 Measuring intake and output [facility] Start: 01-05-2025 Oxygen therapy [facility] Start: 01-05-2025 Patient education [facility] Start: 01-05-2025 Providing care according to standard [facility] Start: 01-05-2025 End: 01-05-2025 [facility] Start: 01-05-2025 Blood culture [facility] Start: 01-05-2025 Bacteria identified in Sputum by Culture [facility] Start: 01-05-2025 Legionella pneumophila Ag [Presence] in Urine [facility] Start: 01-05-2025 Streptococcus pneumoniae antigen assay [facility] Start: 01-05-2025 Verification routine [facility] Start: 01-05-2025 Hospital admission, emergency, from emergency room, medical nature [facility] Start: 01-05-2025 Admission procedure [facility] Start: 01-05-2025 Patient referral to dietitian [facility] Start: 01-05-2025 [facility] Start: 01-03-2025 Emergency dept visit high severity&threat funcj [facility] Start: 01-03-2025 [facility] Start: 01-01-2025 End: 01-01-2025 Patient encounter procedure 01/01/2025 2:00 PM EDT Office Visit [facility] [place] [address] [place] [address] Anjel Braga APRN.[facility] [address] [place], [place] [address] 2 week follow up [facility] [place] Comment on above: 2 week follow up Start: 12-26-2024 Patient discharge [facility] Start: 12-26-2024 Care planning and problem solving actions [facility] Start: 12-25-2024 End: 12-25-2024 Patient encounter procedure 12/25/2024 1:00 PM EDT Office Visit Pulmonary Medicine [address] [id number] Priscilla Barillas MD [address] [place] [address] Other emphysema (HCC) [J43.8]; Smoker [F17.200] [facility] Comment on above: Other emphysema (HCC) [J43.8]; Smoker [F 17.200] Start: 12-25-2024 End: 12-25-2024 ambulatory [facility] Medicine Comment on above: Other emphysema (HCC) [J43.8]; Smoker [F 17.200] * Other emphysema (H CC) [J43.8]; Smoker [F17.200] Start: 12-22-2024 [facility] Start: 12-22-2024 Electroencephalogram [facility] Start: 12-19-2024 Referral to gastroenterology service [facility] Start: 12-18-2024 Admission procedure [facility] Start: 12-18-2024 Contact precautions [facility] Start: 12-18-2024 Inhalation therapy procedure [facility] Start: 12-17-2024 Following clinical pathway protocol [facility] Start: 12-17-2024 Application of intermittent pneumatic compression device [facility] Start: 12-17-2024 Aspiration precautions [facility] Start: 12-17-2024 Assessment of risk of venous thromboembolism [facility] Start: 12-17-2024 Cardiac monitoring [facility] Start: 12-17-2024 Catheterization of vein [facility] Start: 12-17-2024 Consultation [facility] Start: 12-17-2024 Elevation of head of bed [facility] Start: 12-17-2024 Exercises [facility] Start: 12-17-2024 Insertion of catheter into peripheral vein [facility] Start: 12-17-2024 Notification of physician [facility] Start: 12-17-2024 Oxygen therapy [facility] Start: 12-17-2024 Patient referral to dietitian [facility] Start: 12-17-2024 Providing care according to standard [facility] Start: 12-17-2024 Referral to occupational therapist [facility] Start: 12-17-2024 Referral to service [facility] Start: 12-17-2024 Speech therapy assessment [facility] Start: 12-17-2024 Tobacco use cessation education [facility] Start: 12-17-2024 Vital signs measurements [facility] Start: 12-17-2024 End: 12-17-2024 [facility] Start: 12-17-2024 MRI of brain without contrast [facility] Start: 12-17-2024 Verification routine [facility] Start: 12-17-2024 Admission procedure [facility] Start: 12-17-2024 Hospital admission, emergency, from emergency room, medical nature [facility] Start: 12-17-2024 Partial thromboplastin time, activated [facility] Start: 12-17-2024 Prothrombin time [facility] Start: 12-17-2024 Thyroid stimulating hormone measurement [facility] Start: 12-17-2024 Oxygen therapy [facility] Start: 12-17-2024 End: 12-18-2024 [facility] Start: 12-17-2024 End: 03-18-2025 Hemoglobin A1c in Blood HEMOGLOBIN A1C Lab Routine Medication management Expected: 12/17/2024, Expires: 03/18/2025 [facility] Work Phone: Comment on above: Expected: 12/17/2024, Expires: Start: 12-17-2024 End: 03-18-2025 Lipid 1996 panel - Serum or Plasma LIPID PANEL, FASTING Lab Routine Hyperlipidemia Expected: 12/17/2024, Expires: 03/18/2025 [facility] Comment on above: Expected: 12/17/2024, Expires: Start: 12-17-2024 Consultation [facility] Start: 12-16-2024 Referral to service [facility] Start: 12-16-2024 Patient discharge [facility] Start: 12-14-2024 Referral to occupational therapist [facility] Start: 12-14-2024 Referral to service [facility] Start: 12-13-2024 Contact precautions [facility] Start: 12-13-2024 Following clinical pathway protocol [facility] Start: 12-13-2024 Assessment of risk of venous thromboembolism [facility] Start: 12-13-2024 Continuous pulse oximetry [facility] Start: 12-13-2024 Inhalation therapy procedure [facility] Start: 12-13-2024 Insertion of catheter into peripheral vein [facility] Start: 12-13-2024 Introduction of urinary catheter [facility] Start: 12-13-2024 Measuring intake and output [facility] Start: 12-13-2024 Oxygen therapy [facility] Start: 12-13-2024 Providing care according to standard [facility] Start: 12-13-2024 Provision of activity privileges [facility] Start: 12-13-2024 Tobacco use cessation education [facility] Start: 12-13-2024 End: 12-13-2024 [facility] Start: 12-13-2024 Dual pressure spontaneous ventilation support [facility] Start: 12-13-2024 Verification routine [facility] Start: 12-13-2024 Admission procedure [facility] Start: 12-13-2024 Hospital admission, emergency, from emergency room, medical nature [facility] Start: 12-13-2024 [facility] Start: 12-13-2024 Bacteria identified in Blood by Culture Blood Culture [facility] Start: 12-13-2024 Blood culture [facility] Start: 12-13-2024 Respiratory Panel (PCR) Respiratory Panel (PCR) [facility] Start: 12-13-2024 Consultation [facility] Start: 12-13-2024 Patient referral to dietitian [facility] Start: 12-12-2024 End: 03-13-2025 Comprehensive metabolic 2000 panel - Serum or Plasma [facility] Comment on above: Expected: 12/12/2024, Expires: Start: 12-12-2024 End: 03-13-2025 Urinalysis complete panel - Urine [facility] Work Phone: Comment on above: Expected: 12/12/2024, Expires: Start: 12-12-2024 End: 12-12-2024 [facility] [place] Comment on above: Discharge from Nursing facility - Follow up Discharge from [facility] facility -see phone note 12/09 Start: 11-20-2024 Annual PCP Team Chronic Disease Visit Annual PCP Team Chronic Disease Visit [facility] Start: 09-03-2024 DIABETES SCREEN DIABETES SCREEN [facility] Start: 09-02-2024 Patient discharge [facility] Start: 09-01-2024 [facility] Start: 08-30-2024 Incentive spirometry [facility] Start: 08-29-2024 Consultation [facility] Start: 08-29-2024 Contact precautions [facility] Start: 08-27-2024 Application of intermittent pneumatic compression device [facility] Start: 08-27-2024 Admission procedure [facility] Start: 08-27-2024 Urine culture Urine Culture [facility] Start: 08-27-2024 [facility] Start: 08-27-2024 Oxygen therapy [facility] Start: 08-25-2024 Following clinical pathway protocol [facility] Start: 08-25-2024 Assessment of risk of venous thromboembolism [facility] Start: 08-25-2024 Inhalation therapy procedure [facility] Start: 08-25-2024 Insertion of catheter into peripheral vein [facility] Start: 08-25-2024 Measuring intake and output [facility] Start: 08-25-2024 Patient referral to dietitian [facility] Start: 08-25-2024 Providing care according to standard [facility] Start: 08-25-2024 Provision of activity privileges [facility] Start: 08-25-2024 Referral to occupational therapist [facility] Start: 08-25-2024 Referral to service [facility] Start: 08-25-2024 [facility] Start: 08-25-2024 Verification routine [facility] Start: 08-25-2024 Hospital admission, emergency, from emergency room, medical nature [facility] Start: 08-25-2024 Admission procedure [facility] Start: 08-25-2024 Enteric precautions [facility] Start: 08-25-2024 End: 08-26-2024 [facility] Start: 08-25-2024 Consultation [facility] Start: 06-19-2024 Advance Directive Discussion Advance Directive Discussion [facility] Start: 06-19-2024 Medicare Advantage Annual Wellness Visit Medicare Advantage Annual Wellness Visit [facility] Start: 06-08-2024 Annual PCP Team Chronic Disease Visit Annual PCP Team Chronic Disease Visit [facility] Start: 06-08-2024 BP Controlled (<130/80) BP Controlled (<130/80) [facility] Start: 2024 RSV Vaccine (1 - 1-dose 75+ series) RSV Vaccine (1 - 1-dose 75+ series) [facility] Start: 03-19-2024 Lipid 1996 panel - Serum or Plasma Lipid Screening [facility] Start: 03-19-2024 Lipid panel Lipid Screening [facility] Start: 03-19-2024 LIPID SCREEN LIPID SCREEN [facility] Start: 02-18-2024 Covid-19 Vaccine ( season) Covid-19 Vaccine ( season) [facility] Start: 02-18-2024 Influenza vaccination Influenza Vaccine (#1) [facility] Start: 01-02-2024 End: 01-02-2024 Patient encounter procedure [facility] Comment on above: PVD FOLLOW UP Start: 01-01-2024 End: 01-01-2024 Patient encounter procedure 01/01/2024 9:20 AM EDT Office Visit [facility] [place] [address] [place] [address] Daija Morton MD [address] [place] [address] 4-6 wk follow up [facility] [place] Comment on above: 4-6 wk follow up Start: 11-21-2023 End: 02-20-2024 CBC W Auto Differential panel - Blood COMPLETE BLOOD COUNT AND DIFFERENTIAL Lab Routine COPD with chronic bronchitis (HCC) Expected: 11/21/2023, Expires: 02/20/2024 [facility] Comment on above: Expected: 11/21/2023, Expires: Start: 11-21-2023 End: 02-20-2024 Comprehensive metabolic 2000 panel - Serum or Plasma COMPREHENSIVE METABOLIC PANEL Lab Routine Mixed hyperlipidemia Expected: 11/21/2023, Expires: 02/20/2024 [facility] Comment on above: Expected: 11/21/2023, Expires: Start: 11-21-2023 End: 02-20-2024 Hemoglobin A1c in Blood HEMOGLOBIN A1C Lab Routine Mixed hyperlipidemia Expected: 11/21/2023, Expires: 02/20/2024 [facility] Work Phone: Comment on above: Expected: 11/21/2023, Expires: Start: 11-21-2023 End: 02-20-2024 Lipid 1996 panel - Serum or Plasma LIPID PANEL BASIC Lab Routine Mixed hyperlipidemia Expected: 11/21/2023, Expires: 02/20/2024 [facility] Comment on above: Expected: 11/21/2023, Expires: Start: 11-21-2023 End: 11-21-2023 Patient encounter procedure [facility] [place] Comment on above: hospital discharge/ custodial fractur e of pelvic hospital discharge/ custodial fracture of pelvic(See phone encounter) Start: 11-21-2023 End: 11-21-2023 Patient encounter procedure 11/21/2023 9:40 AM EDT Office Visit [facility] [place] [address] [place] [address] Rebekah Luu PA-C [address] [place] [address] follow up [facility] / copd [facility] [place] Comment on above: follow up [facility] / copd Start: 08-28-2023 ANNUAL PCP TEAM CHRONIC DISEASE VISIT ANNUAL PCP TEAM CHRONIC DISEASE VISIT [facility] Start: 08-02-2023 Patient discharge [facility] Start: 08-01-2023 Referral to occupational therapist [facility] Start: 08-01-2023 Referral to service [facility] Start: 07-31-2023 Speech therapy assessment [facility] Start: 07-31-2023 Oxygen therapy [facility] Start: 07-31-2023 Respiratory secretion precautions [facility] Start: 07-31-2023 Following clinical pathway protocol [facility] Start: 07-31-2023 Continuous pulse oximetry [facility] Start: 07-31-2023 Physiotherapy of chest [facility] Start: 07-31-2023 Hospital admission, emergency, from emergency room, medical nature [facility] Start: 07-31-2023 Inhalation therapy procedure [facility] Start: 07-30-2023 Dual pressure spontaneous ventilation support [facility] Start: 07-30-2023 Admission procedure [facility] Start: 07-30-2023 [facility] Start: 07-26-2023 Patient discharge [facility] Start: 07-25-2023 Referral to occupational therapist [facility] Start: 07-25-2023 Referral to service [facility] Start: 07-25-2023 Inhalation therapy procedure [facility] Start: 07-24-2023 Following clinical pathway protocol [facility] Start: 07-24-2023 Assessment of risk of venous thromboembolism [facility] Start: 07-24-2023 Insertion of catheter into peripheral vein [facility] Start: 07-24-2023 Oxygen therapy [facility] Start: 07-24-2023 Providing care according to standard [facility] Start: 07-24-2023 Referral to service [facility] Start: 07-24-2023 [facility] Start: 07-24-2023 Verification routine [facility] Start: 07-24-2023 Admission procedure [facility] Start: 07-24-2023 Hospital admission, emergency, from emergency room, medical nature [facility] Start: 07-24-2023 Consultation [facility] Start: 07-24-2023 Consultation [facility] Start: 07-24-2023 Patient referral to dietitian [facility] Start: 06-19-2023 Advance Directive Discussion Advance Directive Discussion [facility] Start: 04-04-2023 Patient discharge [facility] Start: 04-03-2023 Consultation [facility] Start: 04-02-2023 Contact precautions [facility] Start: 03-30-2023 End: 03-30-2023 Following clinical pathway protocol [facility] Start: 03-30-2023 Assessment of risk of venous thromboembolism [facility] Start: 03-30-2023 Catheterization of vein [facility] Start: 03-30-2023 Inhalation therapy procedure [facility] Start: 03-30-2023 Insertion of catheter into peripheral vein [facility] Start: 03-30-2023 Oxygen therapy [facility] Start: 03-30-2023 Providing care according to standard [facility] Start: 03-30-2023 Provision of activity privileges [facility] Start: 03-30-2023 Referral to occupational therapist [facility] Start: 03-30-2023 Referral to service [facility] Start: 03-30-2023 End: 03-30-2023 [facility] Start: 03-30-2023 End: 03-30-2023 Blood culture [facility] Start: 03-30-2023 Verification routine [facility] Start: 03-30-2023 Hospital admission, emergency, from emergency room, medical nature [facility] Start: 03-30-2023 Admission procedure [facility] Start: 03-30-2023 Bacteria identified in Blood by Culture Blood Culture [facility] Start: 03-30-2023 Consultation [facility] Start: 03-30-2023 Inhalation therapy procedure [facility] Start: 03-29-2023 [facility] Start: 03-29-2023 Emergency department visit low/moder severity EMERGENCY DEPT VISIT [facility] Start: 03-10-2023 ANNUAL PCP TEAM CHRONIC DISEASE VISIT ANNUAL PCP TEAM CHRONIC DISEASE VISIT [facility] Start: 02-17-2023 Covid-19 Vaccine () Covid-19 Vaccine () [facility] Start: 02-17-2023 Influenza vaccination [facility] Start: 02-04-2023 ANNUAL PCP TEAM CHRONIC DISEASE VISIT ANNUAL PCP TEAM CHRONIC DISEASE VISIT [facility] Start: 01-28-2023 ANNUAL PCP TEAM CHRONIC DISEASE VISIT ANNUAL PCP TEAM CHRONIC DISEASE VISIT [facility] Start: 01-14-2023 SHINGRIX VACCINE (2 of 3) SHINGRIX VACCINE (2 of 3) [facility] Comment on above: Postponed from 11/19/2020 (Declined at t his time) Start: 01-03-2023 Urine microalbumin profile DTAP,TDAP,TD (2 - Td or Tdap) [facility] Start: 11-17-2022 ANNUAL PCP TEAM CHRONIC DISEASE VISIT ANNUAL PCP TEAM [facility]RONIC DISEASE [facility]IT [facility] [facility] Start: 10-26-2022 COVID-19 VACCINE (4 - Moderna series) COVID-19 VACCINE (4 - Moderna series) [facility] Start: 10-21-2022 [facility] Start: 10-07-2022 ANNUAL PCP TEAM CHRONIC DISEASE VISIT ANNUAL PCP TEAM CHRONIC DISEASE VISIT [facility] Start: 09-15-2022 ANNUAL PCP TEAM CHRONIC DISEASE VISIT ANNUAL PCP TEAM CHRONIC DISEASE VISIT [facility] Start: 06-19-2022 ADVANCE DIRECTIVE DISCUSSION ADVANCE DIRECTIVE DISCUSSION [facility] Start: 04-02-2022 ANNUAL PCP TEAM CHRONIC DISEASE VISIT ANNUAL PCP TEAM CHRONIC DISEASE VISIT [facility] Start: 03-29-2022 End: 05-29-2022 Hemoglobin A1c in Blood HGB A1C Lab Routine Medication management Expected: 03/29/2022, Expires: 05/29/2022 [facility] Work Phone: Comment on above: Expected: 03/29/2022, Expires: Start: 03-29-2022 End: 05-29-2022 Lipid 1996 panel - Serum or Plasma LIPID PANEL BASIC Lab Routine Hyperlipidemia Expected: 03/29/2022, Expires: 05/29/2022 [facility] Work Phone: Comment on above: Expected: 03/29/2022, Expires: 2 Start: 03-29-2022 End: 05-29-2022 SCHEDULE LAB TESTING SCHEDULE LAB TESTING Lab Routine Expected: 03/29/2022, Expires: 05/29/2022 [facility] Work Phone: Comment on above: Expected: 03/29/2022, Expires: 2 Start: 02-17-2022 Influenza vaccination INFLUENZA (#1) [facility] Start: 01-14-2022 End: 03-16-2022 CBC W Auto Differential panel - Blood [facility] Work Phone: Comment on above: Expected: 01/14/2022, Expires: 2 Start: 11-30-2021 Patient discharge [facility] Work Phone: Start: 11-28-2021 Care planning and problem solving actions [facility] Work Phone: Start: 11-26-2021 Administration of blood product [facility] Work Phone: Start: 11-26-2021 Catheterization of vein [facility] Work Phone: Start: 11-26-2021 Notification of physician [facility] Work Phone: Start: 11-26-2021 Referral to occupational therapist [facility] Work Phone: Start: 11-26-2021 End: 11-26-2021 Referral to service [facility] Work Phone: Start: 11-26-2021 Catheterization of vein [facility] Work Phone: Start: 11-26-2021 Following clinical pathway protocol [facility] Work Phone: Start: 11-26-2021 Inhalation therapy procedure [facility] Work Phone: Start: 11-25-2021 Assessment of risk of venous thromboembolism [facility] Work Phone: Start: 11-25-2021 Insertion of catheter into peripheral vein [facility] Work Phone: Start: 11-25-2021 Measuring intake and output [facility] Work Phone: Start: 11-25-2021 Oxygen therapy [facility] Work Phone: Start: 11-25-2021 Providing care according to standard [facility] Work Phone: Start: 11-25-2021 Provision of activity privileges [facility] Work Phone: Start: 11-25-2021 Referral to gastroenterology service [facility] Work Phone: Start: 11-25-2021 [facility] Work Phone: Start: 11-25-2021 Admission procedure [facility] Work Phone: Start: 11-25-2021 End: 11-25-2021 Administration of blood product [facility] Work Phone: Start: 11-25-2021 Patient referral to dietitian [facility] Work Phone: Start: 10-23-2021 End: 12-23-2021 PT panel - Platelet poor plasma by Coagulation assay PROTHROMBIN TIME/PT Lab Routine Anticoagulation goal of INR 2 to 3 Expected: 10/23/2021, Expires: 12/23/2021 [facility] Work Phone: Comment on above: Expected: 10/23/2021, Expires: 2 Start: 10-19-2021 End: 12-19-2021 Hemoglobin A1c/Hemoglobin.total in Blood HGB A1C Lab Routine Medication management Expected: 10/19/2021, Expires: 12/19/2021 [facility] Work Phone: Comment on above: Expected: 10/19/2021, Expires: 2 Start: 10-19-2021 End: 12-19-2021 LIPID PANEL BASIC LIPID PANEL BASIC Lab Routine Hyperlipidemia Expected: 10/19/2021, Expires: 12/19/2021 [facility] Work Phone: Comment on above: Expected: 10/19/2021, Expires: 2 Start: 10-19-2021 End: 12-19-2021 SCHEDULE LAB TESTING SCHEDULE LAB TESTING Lab Routine Expected: 10/19/2021, Expires: 12/19/2021 [facility] Work Phone: Comment on above: Expected: 10/19/2021, Expires: 2 Start: 10-17-2021 Colonoscopy COLONOSCOPY [facility] Start: 10-17-2021 COLORECTAL CANCER SCREENING COLORECTAL CANCER SCREENING [facility] Start: 09-22-2021 End: 11-22-2021 CBC W Auto Differential panel - Blood CBC + DIFF Lab Routine Anemia, unspecified type Expected: 09/22/2021, Expires: 11/22/2021 [facility] Work Phone: Comment on above: Expected: 09/22/2021, Expires: 2 Start: 09-22-2021 End: 11-22-2021 PT panel - Platelet poor plasma by Coagulation assay PROTHROMBIN TIME/PT Lab Routine Encounter for monitoring Coumadin therapy Expected: 09/22/2021, Expires: 11/22/2021 [facility] Work Phone: Comment on above: Expected: 09/22/2021, Expires: 2 Start: 08-21-2021 Patient discharge [facility] Work Phone: Start: 08-19-2021 Application of intermittent pneumatic compression device [facility] Work Phone: Start: 08-19-2021 Oxygen therapy [facility] Work Phone: Start: 08-19-2021 Tobacco use cessation education [facility] Work Phone: Start: 08-19-2021 [facility] Work Phone: Start: 08-19-2021 Care planning and problem solving actions [facility] Work Phone: Start: 08-19-2021 Administration of blood product [facility] Work Phone: Start: 08-19-2021 Referral to asphalt blender [facility] Work Phone: Start: 08-19-2021 [facility] Work Phone: Start: 08-19-2021 Referral to occupational therapist [facility] Work Phone: Start: 08-19-2021 Referral to service [facility] Work Phone: Start: 08-19-2021 Application of intermittent pneumatic compression device [facility] Work Phone: Start: 08-19-2021 Administration of blood product [facility] Work Phone: Start: 08-19-2021 Administration of blood product [facility] Work Phone: Start: 08-19-2021 Inhalation therapy procedure [facility] Work Phone: Start: 08-18-2021 Following clinical pathway protocol [facility] Work Phone: Start: 08-18-2021 Ambulation without limitation [facility] Work Phone: Start: 08-18-2021 Assessment of risk of venous thromboembolism [facility] Work Phone: Start: 08-18-2021 Insertion of catheter into peripheral vein [facility] Work Phone: Start: 08-18-2021 Providing care according to standard [facility] Work Phone: Start: 08-18-2021 [facility] Work Phone: Start: 08-18-2021 Admission procedure [facility] Work Phone: Start: 06-19-2021 ADVANCE DIRECTIVE DISCUSSION ADVANCE DIRECTIVE DISCUSSION [facility] Start: 06-04-2021 Smpl repair scalp/neck/ax/genit/trunk 2.6-7.5cm RPR S/N/AX/GEN/TRNK2.6-7.5C M [facility] Work Phone: Start: 11-19-2020 SHINGRIX VACCINE (2 of 3) SHINGRIX VACCINE (2 of 3) [facility] Start: 11-05-2020 COVID-19 VACCINE (2 - Moderna 3-dose series) COVID-19 VACCINE (2 - Moderna 3-dose series) [facility] Start: 11-05-2020 COVID-19 VACCINE (2 - Moderna series) COVID-19 VACCINE (2 - Moderna series) [facility] Start: 03-19-2020 Hepatitis B surface antibody level LDL CHOLESTEROL [facility] Start: 11-15-2015 FECAL OCCULT BLOOD FECAL OCCULT BLOOD [facility] Start: 11-15-2015 Screening for malignant neoplasm of colon Fecal Occult Blood [facility] Start: 01-17-2014 Medicare Annual Wellness Visit Medicare Annual Wellness Visit [facility] Start: 2009 RSV Vaccine (1 - 1-dose 60+ series) RSV Vaccine (1 - 1-dose 60+ series) [facility] Start: 2009 RSV Vaccine (1 - Risk 60-74 years 1-dose series) RSV Vaccine (1 - Risk 60-74 years 1-dose series) [facility] Start: 1999 Influenza vaccination LUNG CANCER SCREENING [facility] Start: 1999 Screening for malignant neoplasm of lung Lung Cancer Screening [facility] Start: 1999 SHINGRIX VACCINE (1 of 2) SHINGRIX VACCINE (1 of 2) [facility] Start: 1994 COLOGUARD (FIT-DNA) COLOGUARD (FIT-DNA) [facility] Start: [address] COLONOGRAPHY [facility] Start: 1994 Screening for malignant neoplasm of colon [facility] Start: 1994 SIGMOIDOSCOPY SIGMOIDOSCOPY [facility] Start: 1979 Zoledronic acid therapy ALPHA-1 ANTITRYPSIN DEFICIENCY SCREENING [facility] Start: 1967 BP CONTROLLED (<130/80) BP CONTROLLED (<130/80) [facility] Bacteria identified in Urine by Culture URINE CULTURE Microbiology Routine Dysuria Ordered: 09/15/2021 [facility] Work Phone: Comment on above: Ordered: 09/15/2021 Bacteria identified in Urine by Culture Urine Culture [facility] Bacteria identified in Urine by Culture URINE CULTURE Microbiology Routine Dysuria 03/23/2024 2:06 PM EDT [facility] Work Phone: Blood ammonia measurement [facility] carBAMazepine [Mass/ volume] in Serum or Plasma [facility] Clostridioides diffi cile DNA [Presence] in Unspecified specimen by ALEENA with probe detection [facility] End: 01-28-2023 ECG COMPLETE ECG COMPLETE ECG Routine Essential hypertension Chest pain, unspecified type 1 Occurrences starting 01/28/2022 until 01/28/2023 [facility] Work Phone: Comment on above: 1 Occurrences starting 01/28/2022 until 01/28/2023 Hemoglobin A1c/Hemoglobin.total in Blood [facility] Hemoglobin.gastroint estinal. lower [Presence] in Stool by Immunoassay FECAL OCCULT BLOOD TEST Lab Routine Acute blood loss anemia Angiodysplasia of colon with hemorrhage Ordered: 01/14/2022 [facility] Work Phone: Comment on above: Ordered: 01/14/2022 INR in Blood by Coag ulation assay [facility] Lactic acid measurement [facility] End: 12-05-2022 LUNG DIFFUSION CAPACITY (DLCO) LUNG DIFFUSION CAPACITY (DLCO) PFT Routine COPD with chronic bronchitis (HCC) 1 Occurrences starting 11/05/2021 until 12/05/2022 [facility] Work Phone: Comment on above: 1 Occurrences starting 11/05/2021 until 12/05/2022 End: 01-15-2026 LUNG DIFFUSION CAPACITY (DLCO) LUNG DIFFUSION CAPACITY (DLCO) PFT Routine SOB (shortness of breath) 1 Occurrences starting 12/17/2024 until 01/15/2026 [facility] Comment on above: 1 Occurrences starting 12/17/2024 until 01/15/2026 Nucleic acid assay [facility] Patient Education [facility] Work Phone: Patient referral [facility] Work Phone: End: 06-18-2023 PVR LEG COREY VAS LAB PVR LEG COREY VAS LAB Vascular Lab Routine PVD (peripheral vascular disease) (HCC) 1 Occurrences starting 01/31/2022 until 06/18/2023 [facility] Work Phone: Comment on above: 1 Occurrences starting 01/31/2022 until 06/18/2023 PVR LEG COREY VAS LAB PVR LEG COREY VAS LAB Vascular Lab Routine Peripheral arterial disease (HCC) PVD (peripheral vascular disease) (HCC) 1 Occurrences starting 12/26/2022 [facility] Work Phone: Comment on above: 1 Occurrences starting 12/26/2022 End: 12-05-2022 Radiologic exam chest 2 views XR CHEST 2V FRONTAL/LAT Radiology Routine COPD with chronic bronchitis (HCC) 1 Occurrences starting 11/05/2021 until 12/05/2022 [facility] Work Phone: Comment on above: 1 Occurrences starting 11/05/2021 until 12/05/2022 Respiratory pathogen s DNA and RNA panel - Respiratory specimen by ALEENA with probe detection [facility] End: 01-15-2026 SPIROMETRY WITH DILATOR IF OBSTRUCTED SPIROMETRY WITH DILATOR IF OBSTRUCTED PFT Routine SOB (shortness of breath) 1 Occurrences starting 12/17/2024 until 01/15/2026 [facility] Work Phone: Comment on above: 1 Occurrences starting 12/17/2024 until 01/15/2026 Troponin T.cardiac [Mass/volume] in Serum or Plasma by High sensitivity method [facility] Troponin T.cardiac [Mass/volume] in Serum or Plasma by High sensitivity method [facility] Urinalysis complete panel - Urine URINALYSIS, WITH MICROSCOPIC Lab Routine Dysuria Hematuria, unspecified type Ordered: 09/15/2021 [facility] Work Phone: Comment on above: Ordered: 09/15/2021 Urinalysis complete panel - Urine UA WITH CULTURE IF INDICATED Lab Routine Dysuria Ordered: 09/15/2021 [facility] Work Phone: Comment on above: Ordered: 09/15/2021 US Carotid arteries [facility] End: 01-01-2025 US Lower extremity artery - bilateral PVR LEG COREY VAS LAB Vascular Lab Routine Peripheral arterial disease (HCC) 1 Occurrences starting 01/02/2024 until 01/01/2025 [facility] Work Phone: Comment on above: 1 Occurrences starting 01/02/2024 until 01/01/2025 End: 01-11-2026 XR Chest PA and Lateral XR CHEST 2V FRONTAL/LAT Radiology Routine Wheezing 1 Occurrences starting 12/12/2024 until 01/11/2026 [facility] Comment on above: 1 Occurrences starting 12/12/2024 until 01/11/2026 XR Chest PA and Lateral XR CHEST 2V FRONTAL/LAT Radiology Routine Wheezing 12/12/2024 3:36 PM EDT [facility] Immunizations Immunization Date Immunization Notes Care Provider [facility] 03-31-2023 Influenza High-Dose Quadrivalent Dr. Daija Morton Work Phone: [facility] 03-31-2023 influenza virus vaccine, unspecified formulation Daija Morton MD Work Phone: [facility] 06-04-2021 tetanus toxoid, redu marianna diphtheria toxoid, and acellular pertussis vaccine, adsorbed Dr. Daija Morton Work Phone: [facility] 04-05-2021 influenza, high-dose , quadrivalent vaccine (FLUZONE HIGH DOSE QUADRIVALENT) Lizette Ulloa RN Work Phone: [facility] 04-05-2021 influenza virus vaccine, unspecified formulation Anjel Braga APRN.SPECIALIST ICU Work Phone: [facility] 10-08-2020 COVID-19 vaccine, fu ll dose (MODERNA) Lizette Ulloa RN Work Phone: [facility] 09-24-2020 zoster vaccine, live Harriett lomax MUNICIPAL FIREFIGHTER.MEDIA TECHNICIAN Work Phone: [facility] 09-16-2020 influenza, high-dose , quadrivalent vaccine (FLUZONE HIGH DOSE QUADRIVALENT) Respiratory Wstr Work Phone: [facility] Work Phone: 08-09-2020 influenza, injectabl e, quadrivalent, contains preservative Harriett Albert MUNICIPAL FIREFIGHTER.MEDIA TECHNICIAN Work Phone: [facility] 08-09-2020 influenza, injectabl e, quadrivalent, preservative free Dr. Daija Morton Work Phone: [facility] 08-09-2020 influenza, seasonal, injectable Dr. Daija Morton Work Phone: [facility] 08-09-2020 influenza, seasonal, injectable, preservative free Harriett Albert MUNICIPAL FIREFIGHTER.MEDIA TECHNICIAN Work Phone: [facility] 05-21-2020 influenza, high-dose , quadrivalent vaccine (FLUZONE HIGH DOSE QUADRIVALENT) Lizette Ulloa RN Work Phone: [facility] Work Phone: 07-11-2019 influenza, high dose seasonal, preservative-free Lizette Ulloa RN Work Phone: [facility] Work Phone: 05-18-2018 pneumococcal polysaccharide vaccine, 23 valent Lizette Ulloa RN Work Phone: [facility] 03-14-2018 influenza, high dose seasonal, preservative-free Lizette Ulloa RN Work Phone: [facility] 05-31-2017 influenza, high dose seasonal, preservative-free Lizette Ulloa RN Work Phone: [facility] 06-01-2016 influenza, high dose seasonal, preservative-free Lizette Mayi RN Work Phone: [facility] Work Phone: 03-23-2016 influenza, injectabl e, quadrivalent, contains preservative Harriett Albert MUNICIPAL FIREFIGHTER.MEDIA TECHNICIAN Work Phone: [facility] 03-23-2016 influenza, injectabl e, quadrivalent, preservative free Dr. Daija Morton Work Phone: [facility] 03-23-2016 influenza, seasonal, injectable Dr. Daija Morton Work Phone: [facility] 03-23-2016 influenza, seasonal, injectable, preservative free Lizette Ulloa RN Work Phone: [facility] Work Phone: 07-14-2015 pneumococcal conjuga te vaccine, 13 valent Lizette Ulloa RN Work Phone: [facility] Work Phone: 09-09-2014 influenza, injectabl e, quadrivalent, contains preservative Harriett Albert MUNICIPAL FIREFIGHTER.MEDIA TECHNICIAN Work Phone: [facility] 09-09-2014 influenza, injectabl e, quadrivalent, preservative free Dr. Daija Morton Work Phone: [facility] 09-09-2014 influenza, seasonal, injectable Dr. Daija Morton Work Phone: [facility] 09-09-2014 influenza, seasonal, injectable, preservative free Lizette Ulloa RN Work Phone: [facility] Work Phone: 03-25-2013 pneumococcal polysaccharide vaccine, 23 valent Lizette Ulloa RN Work Phone: [facility] Work Phone: 03-25-[address] Nemesio Morton Work Phone: [facility] Work Phone: 03-25-2013 pneumococcal vaccine , unspecified formulation Respiratory Wstr Work Phone: [facility] Work Phone: 03-24-[address] Daija Morton Work Phone: [facility] 03-24-2013 influenza virus vaccine, unspecified formulation Lizette Ulloa RN Work Phone: [facility] Work Phone: 03-24-2013 influenza, seasonal, injectable Harriett Albert APRN.MEDIA TECHNICIAN Work Phone: [facility] 03-24-2013 influenza, seasonal, injectable, preservative free Lizette Ulloa RN Work Phone: [facility] Work Phone: 01-03-2013 tetanus toxoid, redu marianna diphtheria toxoid, and acellular pertussis vaccine, adsorbed Lizette Ulloa RN Work Phone: [facility] Payers Date Payer Category Payer Unknown [id number] 2024 Medicare (Managed Care) [id number]. [id number] 2024 Medicaid [id number] 2024 Unknown [id number] 2024 Self-pay [id number] 2023 Private Health Insurance [id number] 2022 Unknown [id number] 2021 Medicare [facility] AARP MEDICAR E [facility] AARP MEDICARE HMO [id number] 2021-Present [phone] [address] [address] [place] [address] HMO [id number] 2017 Medicaid [id number] 2017 Medicaid [id number] .[id number] 2014 Medicare [id number] 2014 Medicare [id number] 2014 Medicare [id number] .[id number] 1949 Unknown [id number] 2.16.840.1.912462.3.579.2.6 27 1949 Unknown [id number] 2.16.840.1.738115.3.579.2.6 27 1949 Unknown [id number] 2.16.840.1.800460.3.579.2.6 27 Private Health Insurance [facility] [id number] Unknown [id number] Unknown [id number] Unknown [id number] 2.16.840.1.951959.3.579.2.4 62 Unknown [id number] 2.16.840.1.990093.3.579.2.4 62 Unknown [id number] 2.16.840.1.183999.3.579.2.4 62 Unknown [id number] 2.16.840.1.516602.3.579.2.4 62 Unknown [id number] 2.16.840.1.455252.3.579.2.4 62 Unknown [id number] 2.16.840.1.929425.3.579.2.4 62 Unknown [id number] 2.16.840.1.695899.3.579.2.4 62 Unknown [id number] 2.16.840.1.009502.3.579.2.4 62 Unknown [id number] 2.16.840.1.608911.3.579.2.4 62 Unknown [id number] 2.16.840.1.735198.3.579.2.4 62 Unknown [id number] 2.16.840.1.725412.3.579.2.4 62 Unknown [id number] 2.16.840.1.422055.3.579.2.4 62 Unknown [id number] 2.16.840.1.830914.3.579.2.4 62 Unknown [id number] 2.16.840.1.952392.3.579.2.4 62 Unknown [id number] 2.16.840.1.418283.3.579.2.4 62 Unknown [id number] 2.16.840.1.760930.3.579.2.4 62 Unknown [id number] 2.16.840.1.059543.3.579.2.4 62 Unknown [id number] 2.16.840.1.507972.3.579.2.4 62 Unknown [id number] 2.16.840.1.188123.3.579.2.4 62 Unknown [id number] 2.16.840.1.348024.3.579.2.4 62 Unknown [id number] 2.16.840.1.938215.3.579.2.4 62 Unknown [id number] 2.16.840.1.593315.3.579.2.4 62 Unknown [id number] 2.16.840.1.890234.3.579.2.4 62 Unknown [id number] 2.16.840.1.187371.3.579.2.4 62 Unknown [id number] 2.16.840.1.124944.3.579.2.4 62 Unknown [id number] 2.16.840.1.469701.3.579.2.4 62 Unknown [id number] 2.16.840.1.438618.3.579.2.4 62 Unknown [id number] 2.16.840.1.687775.3.579.2.4 62 Unknown [id number] 2.16.840.1.714064.3.579.2.4 62 Unknown [id number] 2.16.840.1.367235.3.579.2.4 62 Unknown [id number] 2.16.840.1.420325.3.579.2.4 62 Unknown [id number] 2.16.840.1.241169.3.579.2.4 62 Unknown [id number] 2.16.840.1.519012.3.579.2.4 62 Unknown [id number] 2.16.840.1.335443.3.579.2.4 62 Unknown [id number] 2.16.840.1.647874.3.579.2.4 62 Unknown [id number] 2.16.840.1.957927.3.579.2.4 62 Unknown [id number] 2.16.840.1.219643.3.579.2.4 62 Unknown [id number] 2.16.840.1.342778.3.579.2.4 62 Unknown [id number] 2.16.840.1.038273.3.579.2.4 62 Unknown [id number] 2.16.840.1.314377.3.579.2.4 62 Unknown [id number] 2.16.840.1.203859.3.579.2.4 62 Unknown [id number] 2.16.840.1.153221.3.579.2.4 62 Unknown [id number] 2.16.840.1.124544.3.579.2.4 62 Unknown [id number] 2.16.840.1.571489.3.579.2.4 62 Unknown [id number] 2.16.840.1.706005.3.579.2.4 62 Unknown [id number] 2.16.840.1.325032.3.579.2.4 62 Unknown [id number] 2.16.840.1.998107.3.579.2.4 62 Unknown [id number] 2.16.840.1.777883.3.579.2.4 62 Unknown [id number] 2.16.840.1.020514.3.579.2.4 62 Unknown [id number] 2.16.840.1.023515.3.579.2.4 62 Unknown [id number] 2.16.840.1.400953.3.579.2.4 62 Unknown [id number] 2.16.840.1.587827.3.579.2.4 62 Unknown [id number] 2.16.840.1.349445.3.579.2.4 62 Unknown [id number] 2.16.840.1.351768.3.579.2.4 62 Unknown [id number] 2.16.840.1.044939.3.579.2.4 62 Unknown [id number] 2.16.840.1.252398.3.579.2.4 62 Unknown [id number] 2.16.840.1.493661.3.579.2.4 62 Unknown [id number] 2.16.840.1.568884.3.579.2.4 62 Unknown [id number] 2.16.840.1.622463.3.579.2.4 62 Unknown [id number] 2.16.840.1.462584.3.579.2.4 62 Unknown [id number] 2.16.840.1.452890.3.579.2.4 62 Unknown [id number] 2.16.840.1.101843.3.579.2.4 62 Unknown [id number] 2.16.840.1.059007.3.579.2.4 62 Unknown [id number] 2.16.840.1.999787.3.579.2.4 62 Unknown [id number] 2.16.840.1.327322.3.579.2.4 62 Social History Date Type Detail Facility Start: 04-10-2020 End: 01-05-2025 Tobacco smoking status NHIS Ex-smoker [facility] Start: 06-19-1964 History of tobacco use Cigarette Smo ker [facility] Start: 04-10-2020 End: 12-26-2022 Cigarettes smoked current (pack per day) - Reported 2 [facility] Start: 04-10-2020 End: 03-23-2024 Tobacco use and exposure Smokeless tobacco non-user [facility] Start: 08-26-2021 End: 12-12-2024 Alcohol intake Current non-drinker of alcohol (finding) [facility] Start: 04-16-2015 History SDOH Alcohol Comment History of alcohol abuse. I cut that out. [facility] Start: 12-17-2019 History SDOH Financial 5 [facility] Start: 12-17-2019 History SDOH Food Worry 2 [facility] Start: 12-17-2019 History SDOH Food Scarcity 1 [facility] Start: 08-22-2019 End: 01-31-2022 Tobacco Comment patient started using patches [facility] Start: 1950 Sex Assigned At Not on file C [facility] Start: 10-12-2020 End: 03-10-2022 Exposure to SARS-CoV-2 (event) Not sure [facility] Start: 06-19-1964 End: 03-23-2024 Tobacco smoking status NHIS Smokes tobacco daily [facility] Start: 09-17-2021 End: 01-23-2025 Tobacco smoking status NHIS Unknown if ever smoked [facility] Start: 01-20-2021 [facility] Start: 12-16-2019 Snf [facility] Start: 08-09-2020 Cigarettes [facility] Start: 1950 Sex Assigned At Male [facility] Start: 09-14-2021 End: 01-28-2022 Exposure to SARS-CoV-2 (event) Unable to assess [facility] Start: 05-14-2018 Tobacco smoking status Light t obacco smoker (finding) [facility] Sex Assigned At [facility] Start: 12-17-2019 End: 12-26-2022 Tobacco use panel [facility] How hard is it for y ou to pay for the very basics like food, housing, medical care, and heating Not hard at all [facility] (I/We) worried massimo er (my/our) food would run out before (I/we) got money to buy more. Sometimes true [facility] The food that (I/we) bought just didn't last, and (I/we) didn't have money to get more. Never true [facility] Start: [birth year]19-1964 History of tobacco use Current smoke r [facility] Start: 08-25-2024 End: 08-25-2024 Tobacco smoking status NHIS Current some day smoker [facility] Start: 06-02-2009 End: 08-25-2024 Sex Male (finding) [facility] Medical Equipment Procedure Code Equipment Code Equipment Original Text Equipment Identifier Dates EGD, with monitored anesthesia care [id number] FDA Start: 12-23-2024 EGD, with monitored anesthesia care [id number] FDA Start: 01-06-2025 Graft [place] 7mm T hin Wall Heparin Propaten Ptfe 80cm 60cm Vascular Removable - [id number] Start: 10-10-2019 Patch Cv 8x.8cm Tapr Vsgrd Bov - [id number] Start: 10-23-2013 Comment on above: Description: Implant ed left femoral artery Patch Vascu-Guar d Taper Bovine Pericardial 8x.8cm Cardiovascular [place] - [id number] Start: 10-08-2019 Stent Palmaz Gen esis Opta Pro Flexsegment 8mm 40mm Large Stainless Steel 80 - [id number] Start: 10-08-2019 Stent Palmaz Gen esis Opta Pro Flexsegment 8mm 40mm Large Stainless Steel 80 - [id number] Start: 10-08-2019 Stent Trchbr 7mm 7fr 38mm 120 - [id number] Start: 10-23-2013 Comment on above: Description: Second stent lot #[id number]. exp. 03/2016 Stent Vasc 8mm 1 5cm 120cm .035 - [id number] Start: 10-23-2013 Comment on above: Description: Implant ed in left iliac artery Stent Trchbr 7mm 7fr 38mm 120 - [id number] Start: 10-23-2013 Stent Corey 10mm 8 0mm 120cm .035 - [id number] Start: 10-23-2013 Comment on above: Description: Implant ed in right iliac artery Stent Corey 10mm 8 0mm 120cm .035 - [id number] Start: 10-23-2013 Comment on above: Description: Implant ed in right iliac artery Stent Icast 8mm Ptfe Stainless Steel 59mm 80cm Tracheobronchial Covered - [id number] Start: 10-08-2019 Stent Icast 8mm Ptfe Stainless Steel 59mm 80cm Tracheobronchial Covered - [id number] Start: 10-08-2019 Goals Date Patient Goal [...] Functional status Ambulates;Emeka r;Bedside Commode;Stand and pivot [facility] Work Phone: 12-26-2024 Functional status Stand and pivot [facility] Work Phone: 12-16-2024 Functional status With Assist of 1 [facility] Work Phone: 12-16-2024 Functional status Ambulates;Back to bed [facility] Work Phone: 09-02-2024 Functional status With Assist of 1 [facility] Work Phone: 09-01-2024 Functional status Bathroom Privilege [facility] Work Phone: 08-02-2023 Functional status With Assist of 1 [facility] Work Phone: 08-01-2023 Functional status Bedrest [facility] Work Phone: 07-26-2023 Functional status Chair [facility] Work Phone: 07-26-2023 Functional status Bedrest [facility] Work Phone: 07-25-2023 Functional status None [facility] Work Phone: 04-04-2023 Functional status Up ad chadwick;Bath room Privilege [facility] Work Phone: 10-22-2022 Functional Status Minimum assistance [facility] 10-22-2022 Functional Status Standard Safet y ID band on, Call device within reach, Bed in low position, Wheels locked, Upper/Half-Length side-rails up, Phone within reach, Bedside Cart Locked [facility] 11-30-2021 Functional status Ambulates [facility] Work Phone: 09-29-2021 Functional Status [facility] 09-13-2021 Are you deaf, or do you have serious difficulty hearing No 09/13/2021 4:47 PM Bessy Ovalles, RN No [facility] 09-13-2021 Are you blind, or do you have serious difficulty seeing, even when wearing glasses No 09/13/2021 4:47 PM Bessy Ovalles, RN No [facility] 09-13-2021 Do you have serious difficulty walking or climbing stairs No 09/13/2021 4:47 PM EDT Bessy Nunez, RN No [facility] 09-13-2021 Do you have difficul ty dressing or bathing No 09/13/2021 4:47 PM EDT Bessy Nunez, RN No [facility] 09-13-2021 Because of a physica l, mental, or emotional condition, do you have difficulty doing errands alone such as visiting a physician's office or shopping No 09/13/2021 4:47 PM EDT Bessy Nunez, SEYMOUR No [facility] 08-21-2021 Functional status Ambulates;Emeka r;Bathroom Privilege [facility] Work Phone: 08-21-2021 Functional status Tolerates Activity Well [facility] Work Phone: Mental Status Date Assessment Result Facility 01-08-2025 Cognitive function Touch/Shaking [facility] Work Phone: 01-05-2025 Cognitive function Awake;Disoriented [facility] Work Phone: 12-26-2024 Cognitive function Voice/Name [facility] Work Phone: 12-17-2024 Cognitive function Voice/Name [facility] Work Phone: 12-16-2024 Cognitive function Voice/Name [facility] Work Phone: 09-02-2024 Cognitive function Voice/Name [facility] Work Phone: 08-25-2024 Cognitive function Level Of Cons ciousness Awake;Alert;Appropriate;Fol lows Commands [facility] Work Phone: 08-02-2023 Cognitive function Voice/Name [facility] Work Phone: 07-26-2023 Cognitive function Person;Place;Time [facility] Work Phone: 07-25-2023 Cognitive function Voice/Name [facility] Work Phone: 04-04-2023 Cognitive function Voice/Name [facility] Work Phone: 02-17-2023 Cognitive function Level Of Cons ciousness Awake;Alert;Appropriate;Fol lows Commands [facility] Work Phone: 12-31-2022 Cognitive function Level Of Cons ciousness Awake;Alert;Appropriate;Fol lows Commands [facility] Work Phone: 10-22-2022 Mental Status Orientation Oriented x 4 [facility] 10-22-2022 Mental Status [facility] 03-07-2022 Cognitive function Level Of Cons ciousness Awake;Alert;Appropriate [facility] Work Phone: 03-02-2022 Cognitive function Level Of Cons ciousness Awake;Alert;Appropriate [facility] Work Phone: 01-28-2022 Cognitive function Level Of Cons ciousness Awake;Alert;Appropriate;Fol lows Commands [facility] Work Phone: 11-30-2021 Cognitive function Voice/Name [facility] Work Phone: 10-08-2021 Cognitive function Level Of Cons ciousness Awake;Alert;Appropriate;Fol lows Commands [facility] Work Phone: 09-29-2021 Mental Status [facility] 09-13-2021 Because of a physica l, mental, or emotional condition, do you have serious difficulty concentrating, remembering, or making decisions No 09/13/2021 4:47 PM EDT Bessy Nunez RN No [facility] 08-21-2021 Cognitive function Voice/Name [facility] Work Phone: 06-12-2021 Cognitive function Level Of Cons ciousness Awake;Alert;Appropriate;Fol lows Commands [facility] Work Phone: Clinical Notes 10-08-2019 to [...] in any part of the body Seizures [phone] [employer] [place] [address]. All rights reserved. This information is not intended as a substitute for professional medical care. Always follow your healthcare professional's instructions. Follow Up Care 03/18/2025 02:08:48 With:Go to emergency room if symptoms worsen Address:Unknown When:2-4 days With:CARLA CRANE MD Address: [address] [place] [phone]- [phone] When:2-4 days [facility] 03-18-2025 Note Discharge Instructions Thank you for allowing [place] to assist you with your healthcare needs. [...] with CARLA CRANE MD When:Within 2-4 days Where:[address] [place] [phone]- [phone] Allergies NKA Medications Please ask your primary [...] in any part of the body Seizures [phone] [employer]. [address] [place] [address]. All rights reserved. This information is not intended as a substitute for professional medical care. Always follow your healthcare professional's instructions. Additional Information VACCINATE! IT SAVES LIVES! Members of the community who have not yet received the COVID-19 vaccine and would like to receive it can visit one of [facility] vaccine clinics. There are many vaccine clinic locations within the [facility]. For locations and available times, please visit [email or web address] [email or web address] It is important to note that some COVID mobile vaccine clinics are held outdoors and may be canceled in rainy or stormy conditions. To learn more about pediatric vaccinations (ages 5-11), we invite you to visit the [facility] webpage. https://www.[facility].org/p ages/1385-Nwaog-Njdionqvfmg-Freq qnwgex-Yylfj-Dlewkgocx.html To learn more about the COVID-19 vaccine, we invite you to visit the CDC website for a list of frequently asked questions. https://www.cdc.gov/coronavirus/ 2019-ncov/vaccines/faq.html [facility] Patient Portal Access Instructions: Stay connected with your healthcare team and access your personal medical information anytime with the [employer] Patient Portal. If you would like a full copy of your medical records please contact the [facility] Medical Records Department Monday through Monday between 8a.m. and 4:30p.m. Please follow the directions below to access the portal: 1.Access the email account you provided upon registration to the [facility].2.Look for an invitation email from [facility].3.Open the email and access the invitation link: Accept Invitation to [facility] [place] [facility]4.Fill in the required batres to create your account. To access your account, visit [employer] or scan the ReferStar code above. Click the blue button labeled [...] you will allow to register on the [employer] Patient Portal for access to your information. You can also access the [employer] Patient Portal on the [employer] andrew. Simply click on Health Records under Health Data and then click on the [employer] logo. HOW TO SAFELY DISPOSE OF PRESCRIPTION [...] Call your local pharmacy or go to http://bit.ly/9F6Uk1x to find one close to you.3.Make use of household items: Use cat litter or old coffee grounds to dispose medications if other options are not available. Mix your drugs with these household products, seal them in an airtight container and throw it into the garbage. Call [facility]: [phone] to be sure your drugs can be [...] aware that I should contact my doctor. 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 Signature: Date/Time: Relationship to Patient: Witness Name/Signature: Date/Time: [facility] 03-18-2025 Note Exam Date Time Procedure Performing Provider Status 03/18/25 3:[address] Maxillofacial w/o Contrast LEYLA SHOOK MD; Auth (Verified) [id number] ORIGINAL EXAMINATION: CT OF THE FACE WITHOUT [...] Report By: Ren Tompkins Electronically signed By Leyal Shook MD Dictated Date: 03/18/2025 3:30:22 AM Prelim Date: 03/18/2025 3:35:53 AM Sign Date: 03/18/2025 4:22:40 AM Ordering Provider: MAGDALENE POWELL RP [facility]09-30-2025 Note* Exam Date Time Procedure Performing Provider Status 03/18/25 3:[address] Spine Cervical w/o Contrast LEYLA SHOOK MD; Auth (Verified) [id number] ORIGINAL EXAMINATION: CT OF THE CERVICAL SPINE [...] 4:21:10 AM Ordering Provider: MAGDALENE POWELL RP [facility]09-30-2025 Note* Exam Date Time Procedure Performing Provider Status 03/18/25 3:[address] Head or Brain w/o Contrast LEYLA SHOOK MD; Auth (Verified) [id number] ORIGINAL EXAMINATION: CT OF THE HEAD WITHOUT [...] 4:14:48 AM Ordering Provider: MAGDALENE POWELL RP [facility]08-01-2025 Telephone encounter Note* Telephone Encounter - Debby [...] [place] LPN January 17, 2025 9:07 AM [facility]08-01-2025 Miscellaneous Notes* Telephone Encounter - Debby [...] 17, 2025 9:07 AM [facility] Discharge summary Author Ryan Guerin [facility] Note Date/Time January 08, 2025 4:09 pm [facility] Medical Records Department [address] [place] [address] Transfer to [facility] MR#: [id number] Acct: [id number] Name: PEDRO PABLO SIERRA Rep #:[id number] : 1950 74 From: Ryan Guerin DO [...] PRIOR TO HIS/HER TRANSFER TO [facility]. 01/08/25 1609<Electronically signed by Ryan Guerin [...] advanced diet as tolerated to cardiac per RESIDENTIAL COLLECTIONS recommendations. 2. Initiate via PEG: Jevity 1.5Cal [...] in before D/C Order can be placed): Long Term Facility 01/08/25 0992 <Electronically signed by Ryan Guerin DO> Cosigner Signature (if applicable): CC: Dr. Frankie Galindo MD; Dr. Lorraine Mena MD ~ [facility] Work Phone: 1(681) 273-780707-23-2025 Hospital Discharge instructionsAdditional Instructions Date of Discharge: 01/08/25[facility] Work Phone: 1(845) 187-292007-23-2025 Progress note Author Ryan Guerin [facility] Note Date/Time January 08, 2025 7:25 am [facility] Medical Records Department [address] [facility] [place] [address] Progress Note - Hospitalist 01/07/251951 MR#: [id number] Acct: [id number] Name: PEDRO PABLO SIERRA Rep #:[id number] : 1950 74 From: Ryan Guerin DO PCP: Dr. Lorraine Mena MD Status:A DM IN Location: [place] [address] Reason for Visit Chief Complaint: Suspected PEG tomorrow found Subjective Subjective The date of this injury is 01/07/2025: Patient was seen and examined today, he iscurrently on 2 L of oxygen via nasal cannula, I restarted his tube feedings today, we are currently [facility] Objective Data Objective [...] 35 minutes Charges/Coding Visit Charges Inpatient E&M: 38313 Subs Hosp L2 01/08/25724 <Electronically signed by Ryan Guerin DO> Cosigner Signature (if applicable): CC: ~ Signed [facility] Work Phone: 1(363) 862-183107-22-2025 Progress note Author [facility] Note Date/Time January 07, 2025 7:52 pm [facility] Medical Records Department [address] [place] [address] Progress Note - Hospitalist 01/07/251943 MR#: [id number] Acct: [id number] Name: PEDRO PABLO SIERRA Rep #:[id number] : 1950 74 From: Ryan Guerin DO PCP: Dr. Lorraine Mena MD Status:A DM IN Location: [place] [address] Reason for Visit Chief Complaint: Suspected PEG [...] 35 minutes Charges/Coding Visit Charges Inpatient E&M: 02083 Subs Hosp L2 01/07/251951 <Electronically signed by Ryan Guerin DO> Cosigner Signature (if applicable): CC: ~ Signed [facility] Work Phone: 1(109) 155-485507-22-2025 Progress note Author Paulino Henderson [facility] Note Date/Time January 07, 2025 5:41 pm [facility] Medical Records Department [address] [place] [address] Progress Note 01/07/25 1739 MR#: [id number] Acct: [id number] Name: PEDRO PABLO SIERRA Shannan Rep #:[id number] : 1950 74 From: Paulino Henderson DO PCP: Dr. Lorraine Mena MD Status:A DM IN Location: [place] [address] Progress Note Patient had some respiratory distress [...] for daily usage. Visit Charges Inpatient E&M: 48473 Subs Hosp L3 01/07/25 1741 <Electronically signed by Paulino Henderson DO> Paulino Henderson DO Cosigner Signature (if applicable): CC: ~ Signed [facility] Work Phone: 1(765) 960-979107-21-2025 Consult note Author Segun [facility] Note Date/Time January 06, 2025 6:04 pm [facility] Medical Records Department [address] [place] [address] Anesthesia Postop Eval II 01/06/25 1755 MR#: [id number] Acct: [id number] Name: PEDRO PABLO SIERRA Rep #:[id number] : 1950 74 From: Segun Patel MD PCP: Dr. Lorraine Mena MD Status:A DM IN Y Race: C Location: [place] [address] 1-1 Anesthesia Postop Eval I Sum Postop Eval Completion status Anesthesia document: Postop Eval 1 completed: Yes Anesthesia Postop Eval I Summary Anesthesia Postop Eval I Summary: Anesthesia Postop Eval I: Assessment Summary Airway patent Yes 01/06/25 16:59 SECURITIES ANALYST.ABAR Spontaneous unlabored Yes 01/06/25 16:59 SECURITIES ANALYST.ABAR respirations Mental status Awake,Calm 01/06/25 16:59 SECURITIES ANALYST.ABAR nausea No 01/06/25 16:59 SECURITIES ANALYST.ABAR Vomiting No 01/06/25 16:59 SECURITIES ANALYST.ABAR Anesthesia Postop Eval I: Fluid Summary Crystalloid volume administer 100 01/06/25 16:59 SECURITIES ANALYST.ABAR (ml) Colloids volume administered ( ml) Blood Product volume administered (ml) Total IV fluid infused 100 01/06/25 16:59 SECURITIES ANALYST.YURI Anesthesia Postop Eval I: Summary Notes Anesthesia Complication No 01/06/25 16:59 SECURITIES ANALYST.ABAR Anesthesia Complication Comment: Post-operative progress note Anesthesia: [...] patient's current conditions. Patient transferred back to [facility] with oxygen. 01/06/251803 <Electronically signed by Segun corbett MD> Date _ Segun Patel MD Cosigner Signature: Date CC: ~ Signed [facility] Work Phone: 1(358) 541-425607-21-2025 Consult note Author Roman Holland [facility] Note Date/Time January 06, 2025 4:59 pm [facility] Medical Records Department [address] [place] [address] Anesthesia Postop Eval I 01/06/25 1658 MR#: [id number] Acct: [id number] Name: ARIEL SIERRAJAYY Pierce Rep #:[id number] : 1950 74 From: Roman reaves CRNA PCP: Dr. Lorraine Mena MD Status:A DM IN Y Race: C Location: [place] [address] 06-19 Anesthesia: Postop Eval I Current Vital [...] document: Postop Eval 1 completed: Yes 01/06/25 9370 <Electronically signed by Roman Greene SECURITIES ANALYST> Date _ Roman Holland SECURITIES ANALYST Cosigner Signature: Date CC: ~ Signed [facility] Work Phone: 1(163) 537-468807-21-2025 Consult note Author Segun [facility] Note Date/Time January 06, 2025 3:58 pm [facility] Medical Records Department [address] [place] [address] Pre-Anesthesia Evaluation 01/06/25 1542 MR#: [id number] Acct: [id number] Name: PEDRO PABLO SIERRA Rep #:[id number] : 1950 74 From: Segun Patel MD PCP: Dr. Lorraine Mena MD Status:A DM IN Y Race: C Location: [place] [address] ASA Classification* ASA Classification ASA Classification: 4 [...] (Patient's ex- is the medical power of patent prosecution attorney (Joseph Burrell).) Anesthesia Focused Assessment* Temperature: [...] tube placement. 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 - plant culture manager: Anesthesia History - plant culture manager Hx Hospitalization Yes 08/08/20 16:59 Any [...] Yes NPO since: 00:00 PONV PONV - plant culture manager: PONV - plant culture manager Female HX of Motion Sickness HX of N/V After Surgery Non-Smoker Duration of Surgery greater than 60 minutes Number of Risk Factors PONV Score Height & Weight Height & Weight: Anesthesia: Height & Weight Height 6 ft 01/06/25 08:50 Weight: 66.5 kg 01/06/25 08:50 Body Mass Index (BMI) 19.8 01/06/25 05:00 Respiratory Assessment Respiratory Assessment - plant culture manager: Respiratory Tract Infection Hx - plant culture manager Hx Respiratory Tract Infection No 12/23/24 09:15 Any additional information?: Yes Hx Respiratory Tract Infection: Yes History of Anesthesia Respiratory Infection details: Patient had an episode of aspiration pneumonia yesterday at the custodial. Patient had to be put up to 10 L of oxygen on the Ventimask. He is currently on 8 L nasal cannula. STOP Sleep Apnea STOP Sleep Apnea - plant culture manager: STOP Sleep Apnea - plant culture manager Hx Hypertension Yes 01/05/25 14:48 Hx Sleep [...] Tobacco Use History Tobacco Use History - plant culture manager: Tobacco Use History - plant culture manager Tobacco Use Cigarettes 12/26/24 04:00 Smoking Status Unknown if ever smoked 01/05/25 14:48 Hx Tobacco Use No: unknown 01/05/25 14:48 Years Smoking Packs Smoked per Day Smoking Cessation Date was Yes - quit smoking within 15 01/05/25 09:44 within the last 15 years years Hx Smoking Cessation Date Hx Smoking Cessation No 01/05/25 14:48 Counseling Hematologic Medial History Hematologic Hx - plant culture manager: Hematologic Medical Hx - hoop riveter Hx of Blood Transfusion No 01/05/25 14:48 [...] confused, unrespo /Reproduction History /Reproductive History - plant culture manager: /Reproductive Hx- plant culture manager Hx Now Gestational Age (in weeks): [...] 01/06/25 14:28 Carbamazepine 200 Mg/10 Ml [facility] ([facility]) GT Not Given 4X/DAY LEON Cholecalciferol [...] mls @ 15 mls/hr 01/05/25 15:14 IV .[id number] PRN Saline Flush Sodium Chloride 250 mls @ 15 mls/hr 01/05/25 15:14 IV .[id number] PRN Additional IVPB Infusion Sodium Chloride 1,000 [...] no additional complaints, except as documented. 01/06/25 0399 <Electronically signed by Segun ocrbett MD> Date _ Segun Patel MD Cosigner Signature: Date CC: ~ Signed [facility] Work Phone: 1(313) 708-834407-21-2025 Procedure [facility] 01-06-2025 Procedure [facility]07-21-2025 Radiology Diagnostic study [facility]07-20-2025 Consult note Author Paulino Friend [facility] Note Date/Time January 05, 2025 7:50 pm [facility] Medical Records Department [address] [place] [address] Consultation - GI 01/05/251945 MR#: [id number] Acct: [id number] Name: EPDRO PABLO SIERRA Rep #:[id number] : 1950 74 From: Paulino Henderson DO PCP: Dr. Lorraine Mena MD Status:A DM IN Location: [place] [address] HPI Consult Data Date of Consult: 01/05/25 [...] to put the PEG tube back in. [facility] Medical History Acute CVA (cerebrovascular [...] 76.7 H, Lymph % (Auto) 14.2 L, Rapides % (Auto) 7.0, Eos % (Auto) 1.2, [...] IMPRESSION: COPD. No acute findings. Reading Location: [id number] KUB X-Ray 01/05/25 13:02 IMPRESSION: A PEG tube tip is projected in the region of the stomach. Contrast material is identified within the stomach. There is no extravasation of the contrast. Reading Location: [facility]-OY Assessment & Plan Assessment/Plan (1) PEG tube malfunction: PLAN: 74-year-old with multiple comorbidities who recently pulled his PEG tube out. We will take him for endoscopy tomorrow for PEG tube replacement. His bowel return was explained alternatives, benefits, risk including understanding bleeding, infection, sepsis, perforation, need for more surgery and . He will have an ASA of 3. Charges/Coding Visit Charges Inpatient E&M: 18044 Init Hosp L3 01/05/25 1950 <Electronically signed by Paulino Friend DO> Cosigner Signature (if applicable): CC: Dr. Lorraine Mena MD~ Signed [facility] Work Phone: 1(287) 333-563107-20-2025 History and physical note Author Frankie Galindo [facility] Note Date/Time January 05, 2025 2:02 pm [facility] Medical Records Department [address] [place] [address] H&P Exam - Hospitalist 01/05/25 1336 MR#: [id number] Acct: [id number] Name: PEDRO PABLO SIERRA Rep #:[id number] : 1950 74 From: Frankie Galindo MD PCP: Dr. Lorraine Mena MD Status:A DM IN Location: [place] [address] HPI - General General Date of Admission: 01/05/25 Date of Service: 01/05/25 Chief Complaint: Suspected PEG tomorrow found HPI Narrative PEDRO PABLO SIERRA, is a 74 M with recent diagnosis of acute left MCA CVA discharged to a [facility] facility. Patient had a PEG tube placed [...] to a monitored bed for further management [facility] Medical History Acute CVA (cerebrovascular [...] 76.7 H, Lymph % (Auto) 14.2 L, Rapides % (Auto) 7.0, Eos % (Auto) 1.2, [...] IMPRESSION: COPD. No acute findings. Reading Location: [id number] X-Ray 01/05/25 13:02 IMPRESSION: A PEG tube tip is projected in the region of the stomach. Contrast material is identified within the stomach. There is no extravasation of the contrast. 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 [...] ? Currently on apixaban CODE STATUS from [facility] documentation DNR CCA no intubation reordered Time spent in the patient's overall evaluation,decision-making process, review of diagnostic data, adjustment of management, discussion with other providers, nursing nursing and ancillary staff involved in patient's care documentation, 78 Minutes Charges/Coding Visit Charges Inpatient E&M: 56933 Init Hosp L3 01/05/25 1402 <Electronically signed by Frankie Galindo MD> Cosigner Signature (if applicable): CC: Dr. Frankie Galindo MD; Dr. Lorraine Mena MD~ Signed [facility] Work Phone: 1(192) 881-846407-20-2025 Discharge summary Author Fco Monroy [facility] Note Date/Time January 05, 2025 1:41 pm [facility] Medical Records Department [address] [place] [address] Emergency Department Summary 01/05/25 MR#: [id number] Acct: [id number] Name: PEDRO PABLO SIERRA Rep #:[id number] : 1950 74 From: Fco Monroy MD [...] sent in because of malfunctioning gastrostomy tube. Parquetry Layer states he was sent in for hypertension. Apparently their blood pressure readings were elevated and reason the chief complaint is hypertension. Per the custodial report to nursing staff he was sent in because of gastrostomy tube problems. Reading summary of care patient with history of COPD/asthma with chronic hypoxemic respiratory failure on 2 L by nasal cannula. There was no mention of aspiration or risks of aspiration. Prior similar symptoms: No Recent Illness/Hospitalization: Yes [facility] Medical History Acute CVA (cerebrovascular accident) Aphasia [...] 76.7 H Lymph % (Auto) 14.2 L Rapides % (Auto) 7.0 Eos % (Auto) 1.2 [...] IMPRESSION: COPD. No acute findings. Reading Location: [facility] KUB X-Ray 01/05/25 13:02 IMPRESSION: A PEG tube tip is projected in the region of the stomach. Contrast material is identified within the stomach. There is no extravasation of the contrast. Reading Location: [facility] Radiology report was reviewed. Since [...] respiratory failure with hypoxia, Current use of alf anticoagulation, CVA (cerebral vascular accident), COPD (chronic [...] MD [Primary Care Provider] - Print Language: [place] Disposition Disposition: Assisted Living What to do if you have Problems For any increased pain, shortness of breath, bleeding, nausea or vomiting, chestpain, or any unexpected problems, contact your Primary Care Provider. Call [facility] ([phone]) or report to the closest Emergency Room. Call 911 if necessary. 01/05/25 1341 <Electronically signed by Fco Monroy MD> Cosigner Signature (if applicable): CC: Dr. Lorraine Mena MD ~ Signed [facility] Work Phone: 1(257) 536-447907-20-2025 Discharge summary Author Fco Monroy [facility] Note Date/Time January 05, 2025 1:41 pm [facility] Medical Records Department [address] [place] [address] Emergency Department Summary 01/05/25 MR#: [id number] Acct: [id number] Name: PEDRO PABLO SIERRA Rep #:[id number] : 1950 74 From: Fco Monroy MD [...] sent in because of malfunctioning gastrostomy tube. Parquetry Layer states he was sent in for hypertension. Apparently their blood pressure readings were elevated and reason the chief complaint is hypertension. Per the custodial report to nursing staff he was sent in because of gastrostomy tube problems. Reading summary of care patient with history of COPD/asthma with chronic hypoxemic respiratory failure on 2 L by nasal cannula. There was no mention of aspiration or risks of aspiration. Prior similar symptoms: No Recent Illness/Hospitalization: Yes [facility] Medical History Acute CVA (cerebrovascular [...] 76.7 H Lymph % (Auto) 14.2 L Rapides % (Auto) 7.0 Eos % (Auto) 1.2 [...] IMPRESSION: COPD. No acute findings. Reading Location: [id number] X-Ray 01/05/25 13:02 IMPRESSION: A PEG tube tip is projected in the region of the stomach. Contrast material is identified within the stomach. There is no extravasation of the contrast. Reading Location: [id number] Radiology report was reviewed. Since there is [...] respiratory failure with hypoxia, Current use of manager intermediate anticoagulation, CVA (cerebral vascular accident), COPD [...] MD [Primary Care Provider] - Print Language: [place] Disposition Disposition: Assisted Living What to do if you have Problems For any increased pain, shortness of breath, bleeding, nausea or vomiting, chestpain, or any unexpected problems, contact your Primary Care Provider. Call [facility] ([phone]) or report to the closest Emergency Room. Call 911 if necessary. 01/05/25 1341 <Electronically signed by Fco Monroy MD> Cosigner Signature (if applicable): CC: Dr. Lorraine Mena MD ~ Signed [facility] Work Phone: 1(904) 558-684207-20-2025 Radiology Diagnostic study [facility]07-20-2025 Radiology Diagnostic study [facility]07-18-2025 Discharge summary [facility] Note Date/Time January 03, 2025 8:01 am [facility] Medical Records Department [address] [place] [address] Emergency Department Summary 01/03/25 MR#: [id number] Acct: [id number] Name: PEDRO PABLO SIERRA Rep #:[id number] : 1950 74 From: Arnulfo Zhao DO [...] not ambulatory anyway and already in a custodial. I reviewed the CT head and cervical [...] further history based on his aphasia/mute status [facility] Medical History Acute CVA (cerebrovascular accident) Aphasia [...] is at his baseline mental status per custodial. Nursing reported he fell out of bed [...] will be safe to return to the custodial once the PEG tube has been replaced. History & Record Review Discussion w/independent historian: EMS personnel Additional record(s) reviewed:: Prior inpatient record Discharge Plan Triage Chief Complaint: Fall ED Provider: Arnulfo Zhao Dx/Rx/DC Orders Clinical Impression: Accidental fall, PEG tube malfunction, Current use of manager intermediate anticoagulation, CVA (cerebral vascular accident), COPD [...] MD [Primary Care Provider] - Print Language: [place] What to do if you have Problems For any increased pain, shortness of breath, bleeding, nausea or vomiting, chestpain, or any unexpected problems, contact your Primary Care Provider. Call [facility] ([phone]) or report to the closest Emergency Room. Call 911 if necessary. 01/03/25 0658 <Electronically signed by Arnulfo Zhao DO> Cosigner Signature (if applicable): CC: Dr. Daija Morton MD ~ Signed [facility] Work Phone: 1(579) 485-876307-18-2025 Radiology Diagnostic study [facility]07-18-2025 Radiology Diagnostic study [facility]07-18-2025 Radiology Diagnostic study [facility] 01-03-2025 Radiology Diagnostic study [facility]07-10-2025 Discharge summary Author Shilpa Contreras [facility] Note Date/Time December 26, 2024 3:43 pm [facility] Medical Records Department [address] [place] [address] Discharge Summary 12/26/24 1533 MR#: [id number] Acct: [id number] Name: PEDRO PABLO SIERRA Shannan Rep #:[id number] : 1950 74 From: Shilpa Contreras MD PCP: Dr. Daija Morton MD Status:ADM I N Location: [place] [address] Providers Date of Admission: 12/18/24 Date of [...] he had reported lacking healthcare power of patent prosecution attorney and living will but had noted [...] 0.06 gram-1.5 kcal/mL oral liquid (Jevity 1.5 Aelx) 55 ml feeding tube .18hours #5,688 mL [...] Acute COPD Exacerbation who re-presentED to the [facility] ED on 12/17/24 w/ severe dysarthria [...] s/p PEG placement with following transition from HI ASA->eliquis, d/c IV keppra and resume liquid [...] 84.7 H, Lymph % (Auto) 6.5 L, Rapides % (Auto) 7.8, Eos % (Auto) 0.2, [...] Luan Mcgraw; Jo Hughes;JOSETTE YANG; Angelo Wiley; Neealm Almendarez; Lisha Talamantes Instructions Additional Instructions / [...] continued nutrition consultation and evaluation at the [facility] facility for ongoing assessments and alteration to [...] Privileges] - (Follow-up with Neurology, may see RN UNIT MANAGER within 2-4 weeks of discharge.) Disposition Disposition (needs filled in before D/C Order can be placed): Long Term Facility Charges/Coding Visit Charges Inpatient E&M: 53700 Disch Hosp >30min 12/26/24 1543 <Electronically signed by Shilpa Contreras MD> Cosigner Signature (if applicable): CC: Dr. Shilpa Contreras MD; Dr. Daija Morton MD~ Signed [facility] Work Phone: 1(482) 700-213507-10-2025 [facility]07-10-2025 Telephone encounter Note* Telephone Encounter - Anjel Braga APRN.CNP - 12/26/2024 3:13 PM EDT Admitted to hospital. Will review further at follow up. Anjel Braga APRN.CNP [facility]07-10-2025 Miscellaneous Notes* Telephone Encounter - Anjel Braga APRN.CNP - 12/26/2024 3:13 PM EDT Admitted to hospital. Will review further at follow up. Anjel Braga APRN.CNP [facility] Progress note Author Shilpa Contreras [facility] Note Date/Time December 26, 2024 12:3 1pm [facility] Medical Records Department [address] [place] [address] Progress Note - Hospitalist 12/26/24 0700 MR#: [id number] Acct: [id number] Name: PEDRO PABLO SIERRA Rep #:[id number] : 1950 74 From: Shilpa Contreras MD PCP: Dr. Daija Morton MD Status:ADM I N Location: [place] [address] Reason for Visit Reason for Visit: Diagnoses Cerebral infarction, unspecified (12/18/24) Facial weakness (12/18/24) Aphasia (12/18/24) Subjective Subjective Patient with no acute events overnight per nursing report. Blood pressure has vacillated but improved with initiation of low-dose hydralazine per PEG. Given continued clinical stability and at this point only awaiting [facility] facility discussed with nursing staff and patient [...] Acute COPD Exacerbation who re-presents to the [facility] ED on 12/17/24 w/ severe dysarthria [...] s/p PEG placement with following transition from HI ASA->eliquis,d/c IV keppra and resume liquid carbamazepine, [...] he had reported lacking healthcare power of patent prosecution attorney and living will but had noted he would wanthis ex- Joseph be his medical decision-maker at that time if absolutely necessary. Full Code status. Charges/Coding Visit Charges Inpatient E&M: 74375 Subs Hosp L2 NIHSS NIHSS Nursing Documentation NIHSS Nursing Documentation: NIHSS: Ischemic Stroke/TIA Start: 12/17/24 18:52 Text: For PCU Patients: NIH and Neuro Check every 4 Status: Complete hours, PRN and with change in RN caregiver. Freq: Q12 Protocol: Activity Type Activity Date Activity User E-sign Co-sign Detail Recorded Client Recorded Date Recorded By Document 12/22/24 08:15 DS [id number] 12/22/24 08:19 DS 12/22/24 08:15 NIH Stroke [...] Cosigner Signature (if applicable): CC: ~ Signed [facility] Work Phone: 1(488) 985-451507-09-2025 Progress note Author Shilpa Contreras [facility] Note Date/Time December 25, 2024 1:49p m [facility] Medical Records Department [address] [place] [address] Progress Note - Hospitalist 12/25/24 0652 MR#: [id number] Acct: [id number] Name: PEDRO PABLO SIERRA Rep #:[id number] : 1950 74 From: Shilpa Contreras MD PCP: Dr. Daija Morton MD Status:ADM I N Location: [place] [address] Reason for Visit Reason for Visit: Diagnoses [...] 82.3 H, Lymph % (Auto) 8.0 L, Rapides % (Auto) 8.4, Eos % (Auto) 0.3, [...] Acute COPD Exacerbation who re-presents to the [facility] ED on 12/17/24 w/ severe dysarthria [...] s/p PEG placement with following transition from HI ASA->eliquis,d/c IV keppra and resume liquid carbamazepine, [...] he had reported lacking healthcare power of patent prosecution attorney and living will but had noted he would wanthis ex- Joseph be his medical decision-maker at that time if absolutely necessary. Full Code status. Charges/Coding Visit Charges Inpatient E&M: 53447 Subs Hosp L2 NIHSS NIHSS Nursing Documentation NIHSS Nursing Documentation: NIHSS: Ischemic Stroke/TIA Start: 12/17/24 18:52 Text: For PCU Patients: NIH and Neuro Check every 4 Status: Complete hours, PRN and with change in RN caregiver. Freq: Q12 Protocol: Activity Type Activity Date Activity User E-sign Co-sign Detail Recorded Client Recorded Date Recorded By Document 12/22/24 08:15 DS [id number] 12/22/24 08:19 DS 12/22/24 08:15 NIH Stroke [...] Cosigner Signature (if applicable): CC: ~ Signed [facility] Work Phone: 1(795) 399-602507-08-2025 Progress note Author Paulino Friend [facility] Note Date/Time December 24, 2024 5:58p m [facility] Medical Records Department [address] [place] [address] Progress Note 12/24/24 1755 MR#: [id number] Acct: [id number] Name: PEDRO PABLO SIERRA Rep #:[id number] : 1950 74 From: Paulino Henderson DO PCP: Dr. Daija Morton MD Status:ADM I N Location: [place] [address] Progress Note Patient is still tolerating PEG [...] and anticoagulation therapy. Visit Charges Inpatient E&M: 43584 Subs Hosp L2 12/24/242 <Electronically signed by Paulino Henderson DO> Paulino Henderson DO Cosigner Signature (if applicable): CC: ~ Signed [facility] Work Phone: 1(793) 666-786507-08-2025 Discharge summary Author Shilpa Contreras [facility] Note Date/Time December 24, 2024 5:11p m [facility] Medical Records Department [address] [place] [address] Transfer to Extended Care MR#: [id number] Acct: [id number] Name: PEDRO PABLO SIERRA Rep #:[id number] : 1950 74 From: Shilpa Contreras MD [...] Acute COPD Exacerbation who re-presents to the [facility] ED on 12/17/24 w/ severe dysarthria [...] s/p PEG placement thus will transition from HI ASA->eliquis, d/c IV keppra and resume liquid [...] he had reported lacking healthcare power of patent prosecution attorney and living will but had noted [...] advanced diet as tolerated to cardiac per RESIDENTIAL COLLECTIONS recommendations. 2. Will order to start at [...] continued nutrition consultation and evaluation at the [facility] facility for ongoing assessments and alteration to [...] Privileges] - (Follow-up with Neurology, may see RN UNIT MANAGER within 2-4 weeks of discharge.) Disposition Disposition (needs filled in before D/C Order can be placed): Long Term Facility 12/24/24 1711 <Electronically signed by Shilpa Contreras MD> Cosigner Signature (if applicable): CC: Daylin Schmitt; Gogo Gill MD; Chrystal Collier MD; Dr. Paul Yang MD;Dr. Roman Patel DO; Dr. Aung Peres MD; Dr. Daija Morton MD; Dr. Ryan Vargas MD; Dr. Lisha Talamantes DO; Jo Hughes MD; Luan Mcgraw MD; DO Kerri; Angelo Wiley MD; Neelam Almendarez DO ~ [facility] Work Phone: 1([phone]) 348-182507-08-2025 Progress note Author [facility] Note Date/Time December 24, 2024 2:56p m [facility] Medical Records Department [address] [place] [address] Progress Note - Neurology 12/24/24 1451 MR#: [id number] Acct: [id number] Name: PEDRO PABLO SIERRA Rep #:[id number] : 1950 74 From: Maya Talamantes MD PCP: Dr. Daija Morton MD Status:ADM I N Location: [place] [address] Objective Data Objective Data Vital Signs: Vital [...] 82.4 H, Lymph % (Auto) 8.5 L, Rapides % (Auto) 7.7, Eos % (Auto) 0.4, [...] on keppra, PVD, and CDwho presented to [facility] ED on 12/17/2024 with dysarthria and [...] bc patient does not cooperate- swats the radioisotope technician away. Neurological examination limited by decreased [...] Date Recorded By Document 12/22/24 08:15 DS [id number] 12/22/24 08:19 DS 12/22/24 08:15 NIH Stroke [...] Cosigner Signature (if applicable): CC: ~ Signed [facility] Work Phone: 1(616) 463-826507-08-2025 Progress note Author Shilpa Contreras [facility] Note Date/Time December 24, 2024 2:46p m [facility] Medical Records Department [address] [place] [address] Progress Note - Hospitalist 12/24/24705 MR#: [id number] Acct: [id number] Name: PEDRO PABLO SIERRA Rep #:[id number] : 1950 74 From: Shilpa Contreras MD PCP: Dr. Daija Morton MD Status:ADM I N Location: [place] [address] Reason for Visit Reason for Visit: Diagnoses [...] 82.4 H, Lymph % (Auto) 8.5 L, Rapides % (Auto) 7.7, Eos % (Auto) 0.4, [...] Acute COPD Exacerbation who re-presents to the [facility] ED on 12/17/24 w/ severe dysarthria [...] s/p PEG placement thus will transition from HI ASA->eliquis, d/c IV keppra and resume liquid carbamazepine,transition to HTN regimen per PEG, addback statin per PEG. Awaiting [facility] facility placement pre-CERT for transition as clinically [...] he had reported lacking healthcare power of patent prosecution attorney and living will but had noted he would wanthis ex- Joseph be his medical decision-maker at that time if absolutely necessary. Patient and daughter have been working with healthcare team closely and patient is maintained full code at this time. Charges/Coding Visit Charges Inpatient E&M: 68780 Subs Hosp L3 NIHSS NIHSS Nursing Documentation NIHSS Nursing Documentation: NIHSS: Ischemic Stroke/TIA Start: 12/17/24 18:52 Text: For PCU Patients: NIH and Neuro Check every 4 Status: Complete hours, PRN and with change in RN caregiver. Freq: Q12 Protocol: Activity Type Activity Date Activity User E-sign Co-sign Detail Recorded Client Recorded Date Recorded By Document 12/22/24 08:15 DS [id number] 12/22/24 08:19 DS 12/22/24 08:15 NIH Stroke [...] Cosigner Signature (if applicable): CC: ~ Signed [facility] Work Phone: 1(601) 292-376607-08-2025 Telephone encounter Note* Telephone Encounter - Daija Morton MD - 12/24/2024 2:09 PM EDT Noted. Daija Tripp MD [facility]07-08-2025 Miscellaneous Notes* Telephone Encounter - Daija Morton MD - 12/24/2024 2:09 PM EDT Noted. Daija Tripp MD * Telephone Encounter - Kelly Zelaya RN - 12/17/2024 2:20 PM EDT Frank REDD [facility] called in to give an update on [...] use. Kelly Zelaya RN documented in this [facility]07-[facility]-2025 Consult note Author Kyaw Borrego [facility] Note Date/Time December 23, 2024 3:51p [facility] Medical Records Department [address] [place] [address] Anesthesia Postop Eval II 12/23/24 1551 MR#: [id number] Acct: [id number] Name: PEDRO PABLO SIERRA Rep #:[id number] : 1950 74 From: Kyaw Borrego MD PCP: Dr. Daija Morton MD Status:ADM I N Y Race: C Location: [place] [address] 1-1 Anesthesia Postop Eval I Sum Postop Eval Completion status Anesthesia document: Postop Eval 1 completed: Yes Anesthesia Postop Eval I Summary Anesthesia Postop Eval I Summary: Anesthesia Postop Eval I: Assessment Summary Airway patent Yes 12/23/24 15:30 SECURITIES ANALYST.CSIR Spontaneous unlabored Yes 12/23/24 15:30 SECURITIES ANALYST.CSIR respirations Mental status nausea No 12/23/24 15:30 SECURITIES ANALYST.CSIR Vomiting No 12/23/24 15:30 SECURITIES ANALYST.CSIR Anesthesia Postop Eval I: Fluid Summary Crystalloid volume administer 200 12/23/24 15:30 SECURITIES ANALYST.CSIR (ml) Colloids volume administered ( ml) Blood Product volume administered (ml) Total IV fluid infused 200 12/23/24 15:30 SECURITIES ANALYST.CSIR Anesthesia Postop Eval I: Summary Notes Anesthesia Complication No 12/23/24 15:30 SECURITIES ANALYST.CSIR Anesthesia Complication Comment: Post-operative progress note Anesthesia: Postop Eval II Evaluation Mental status: Awake Pain Level: 0 nausea: No Vomiting: No 12/23/24 1551 <Electronically signed by Kyaw Borrego MD > Date _ Kyaw Ramirezigner Signature: Date CC: ~ Signed [facility] Work Phone: 1(684) 520-193707-07-2025 Consult note [facility] Note Date/Time December 23, 2024 3:32p m [facility] Medical Records Department [address] [place] [address] Anesthesia Postop Eval I 12/23/24 1530 MR#: [id number] Acct: [id number] Name: PEDRO PABLO SIERRA Rep #:[id number] : 1950 74 From: Rocío Barrios CRNA PCP: Dr. Daija Morton MD Status:ADM I N Y Race: C Location: [place] [address] 06-19 Anesthesia: Postop Eval I Current Vital [...] 12/23/24 1532 <Electronically signed by Rocío smith SECURITIES ANALYST> Date _ Rocío Barrios CRNA Cosigner Signature: Date CC: ~ Signed [facility] Work Phone: 1(121) 924-544807-07-2025 Progress note Author Shilpa Contreras [facility] Note Date/Time December 23, 2024 3:24p m [facility] Medical Records Department [address] [place] [address] Progress Note - Hospitalist 12/23/24 0719 MR#: [id number] Acct: [id number] Name: PEDRO PABLO SIERRA Rep #:[id number] : 1950 74 From: Shilpa Contreras MD PCP: Dr. Daija Morton MD Status:ADM I N Location: [place] [address] Reason for Visit Reason for Visit: Diagnoses [...] Acute COPD Exacerbation who re-presents to the [facility] ED on 12/17/24 w/ severe dysarthria [...] Acute COPD Exacerbation who re-presents to the [facility] ED on 12/17/24 w/ severe dysarthria [...] prophylaxis. Once patient requires PEG tube and [facility] facility placement is pre-CERT obtained will transition [...] DVT prophylaxis: As noted currently maintained on HI aspirin therapy, planinitiation of Eliquis therapy following PEG tube placement likely 12/25/2019 5 AM. #17. CODE status: From previous discussions with patient he had reported lacking healthcare power of patent prosecution attorney and living will but had noted he would wanthis ex- Joseph be his medical decision-maker at that time if absolutely necessary. Patient and daughter have been working with healthcare team closely and patient is maintained full code at this time. Charges/Coding Visit Charges Inpatient E&M: 19213 Subs Hosp L3 NIHSS NIHSS Nursing Documentation NIHSS Nursing Documentation: NIHSS: Ischemic Stroke/TIA Start: 12/17/24 18:52 Text: For PCU Patients: NIH and Neuro Check every 4 Status: Complete hours, PRN and with change in RN caregiver. Freq: Q12 Protocol: Activity Type Activity Date Activity User E-sign Co-sign Detail Recorded Client Recorded Date Recorded By Document 12/22/24 08:15 DS [id number] 12/22/24 08:19 DS 12/22/24 08:15 NIH Stroke [...] Rasheeda Signature (if applicable): CC: ~ Signed [facility] Work Phone: 1(651) 235-796407-07-2025 Procedure [facility] 12-23-2024 Procedure [facility]07-07-2025 Progress note Author Paulino Friend [facility] Note Date/Time December 23, 2024 2:46p m [facility] Medical Records Department [address] [place] [address] Progress Note 12/23/24 1445 MR#: [id number] Acct: [id number] Name: PEDRO PABLO SIERRA Rep #:[id number] : 1950 74 From: Paulino Henderson DO PCP: Dr. Daija Morton MD Status:ADM I N Location: [place] [address] Progress Note Patient with esophageal dysphagia. She [...] ASA of 3. Visit Charges Inpatient E&M: 42891 Subs Hosp L2 12/23/24 1446 <Electronically signed by Paulino Friend DO> Paulino Friend DO Cosigner Signature (if applicable): CC: ~ Signed [facility] Work Phone: 1(746) 459-253707-07-2025 Consult note Author Kyaw Borrego [facility] Note Date/Time December 23, 2024 2:02p m [facility] Medical Records Department [address] [place] [address] Pre-Anesthesia Evaluation 12/23/24 1400 MR#: [id number] Acct: [id number] Name: PEDRO PABLO SIERRA Rep #:[id number] : 1950 74 From: Kyaw Borrego MD PCP: Dr. Daija Morton MD Status:ADM I N Y Race: C Location: [place] [address] 1-1 ASA Classification* ASA Classification ASA Classification: [...] PEG placement. 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 - plant culture manager: Anesthesia History - plant culture manager Hx Hospitalization Yes 08/08/20 16:59 Any [...] take am of surgery PONV PONV - plant culture manager: PONV - plant culture manager Female HX of Motion Sickness HX of N/V After Surgery Non-Smoker Duration of Surgery greater than 60 minutes Number of Risk Factors PONV Score Height & Weight Height & Weight: Anesthesia: Height & Weight Height 5 ft 8 in 12/23/24 09:50 Weight: 73 kg 12/23/24 09:50 Body Mass Index (BMI) 24.5 12/23/24 09:00 Respiratory Assessment Respiratory Assessment - plant culture manager: Respiratory Tract Infection Hx - plant culture manager Hx Respiratory Tract Infection No 12/23/24 09:15 STOP Sleep Apnea STOP Sleep Apnea - plant culture manager: STOP Sleep Apnea - plant culture manager Hx Hypertension Yes 12/23/24 09:06 Hx [...] Tobacco Use History Tobacco Use History - plant culture manager: Tobacco Use History - plant culture manager Tobacco Use Cigarettes 12/23/24 09:06 Smoking Status Current every day smoker 12/23/24 09:06 Hx Tobacco Use Yes 12/17/24 20:07 Years Smoking Packs Smoked per Day Smoking Cessation Date was within the last 15 years Hx Smoking Cessation Date Hx Smoking Cessation No 12/23/24 09:06 Counseling Hematologic Medial History Hematologic Hx - plant culture manager: Hematologic Medical Hx - hoop riveter Hx of Blood Transfusion Hx of Transfusion in last 3 Months Date of Last Transfusion (if within last 3 months) Ever experience any problems with transfusion(s)? Specify any problems Hx of Preganancy in last 3 Months Nurse Filling Out Transfusion & Questions: Date: Time: Patient unable to answer at Yes 12/17/24 20:07 this time (ie. confused, unrespo /Reproduction History /Reproductive History - plant culture manager: /Reproductive Hx- plant culture manager Hx Now Gestational Age (in weeks): [...] mls @ 15 mls/hr 12/17/24 19:51 IV .[id number] PRN Saline Flush Sodium Chloride 250 mls @ 15 mls/hr 12/17/24 19:51 IV .[id number] PRN Additional IVPB Infusion Levetiracetam 1,000 mg in 100 mls @ 400 mls/hr 12/17/24 22:00 12/23/24 09:45 IV Infused Q12 LEON Infusion Pantoprazole Sodium 40 mg/ 100 mls @ 300 mls/hr 12/19/24 10:00 12/23/24 09:26 Sodium Chloride IV Infused Q24 LEON Infusion Lactated Ringer's 1,000 mls @ 75 mls/hr 12/18/24 15:30 12/23/24 13:10 IV 0 mls/hr .[id number] LEON Infusion Thiamine HCl 250 mg/ Sodium [...] 40 Mg Tablet PO Not Given DAILY [facility] Senna/Docusate Sodium 1 tablet 12/17/24 18:52 Senna/Docusate Sodium 1 Tablet PO BID PRN PRN Constipation Sertraline HCl 100 mg 12/18/24 10:00 12/18/24 09:52 Sertraline 100 Mg Tablet PO Not Given DAILY [facility] Sodium Chloride 10 - 40 ml 12/17/24 19:51 12/23/24 13:09 0.9% Saline Lock 10 Ml Syringe IV 10 ml UD PRN Administration SALINE FLUSH Tamsulosin HCl 0.4 mg 12/18/24 22:00 Tamsulosin Hcl 0.4 Mg Capsule PO QHS [facility] Medical History Weakness Debility Failure [...] MD Cosigner Signature: Date CC: ~ Signed [facility] Work Phone: 1(230) 201-182007-07-2025 Hospital Discharge instructionsAdditional Instructions ADDITIONAL DISCHARGE INSTRUCTIONS/INFORMATION: [...] continued nutrition consultation and evaluation at the [facility] for ongoing assessments and alteration to [...] which appears recent baseline. Date of Discharge: 12/26/24[facility] Work Phone: 1(399) 780-464307-06-2025 Progress note Author Lisha Talamantes [facility] Note Date/Time December 22, 2024 3:35p gabino [facility] Medical Records Department [address] [place] [address] Progress Note - Hospitalist 12/22/24 1534 MR#: [id number] Acct: [id number] Name: PEDRO PABLO SIERRA R Rep #:[id number] : 1950 74 From: Lisha Talamantes DO PCP: Dr. Daija Morton MD Status:ADM I N Location: [place] [address] Hospitalist Note Extensive conversation with POA's at [...] Cosigner Signature (if applicable): CC: ~ Signed [facility] Work Phone: 1(250) 738-231707-06-2025 Progress note Author Lisha Talamantes [facility] Note Date/Time December 22, 2024 1:13p m [facility] Medical Records Department [address] [place] [address] Progress Note - Hospitalist 12/22/24 0733 MR#: [id number] Acct: [id number] Name: PEDRO PABLO SIERRA R Rep #:[id number] : 1950 74 From: Lisha Talamantes DO PCP: Dr. Daija Morton MD Status:ADM I N Location: [place] [address] Reason for Visit Reason for Visit: facial [...] Full code Charges/Coding Visit Charges Inpatient E&M: 09519 Subs Hosp L2 NIHSS NIHSS Nursing Documentation NIHSS Nursing Documentation: NIHSS: Ischemic Stroke/TIA Start: 12/17/24 18:52 Text: For PCU Patients: NIH and Neuro Check every 4 Status: Active hours, PRN and with change in RN caregiver. Freq: Q12 Protocol: Activity Type Activity Date Activity User E-sign Co-sign Detail Recorded Client Recorded Date Recorded By Document 12/21/24 21:20 [id number] 12/21/24 21:19 12/21/24 21:20 NIH Stroke Scale [...] Cosigner Signature (if applicable): CC: ~ Signed [facility] Work Phone: 1(124) 691-982707-06-2025 Progress note Author Maya Talamantes [facility] Note Date/Time December 22, 2024 9:18a m [facility] Medical Records Department [address] [place] [address] Progress Note - Neurology 12/22/24913 MR#: [id number] Acct: [id number] Name: PEDRO PABLO SIERRA Rep #:[id number] : 1950 74 From: Maya Talamantes MD PCP: Dr. Daija Morton MD Status:ADM I N Location: [place] [address] Objective Data Objective Data Vital Signs: Vital [...] on keppra, PVD, and CDwho presented to [facility] ED on 12/17/2024 with dysarthria and [...] Continue daily anti-platelet med (Asa) for now. technician terminal and repeater will need AC for Afib stroke prevention [...] Date Recorded By Document 12/22/24 08:15 DS [id number] 12/22/24 08:19 DS 12/22/24 08:15 NIH Stroke [...] Cosigner Signature (if applicable): CC: ~ Signed [facility] Work Phone: 1(136) 290-758007-05-2025 Progress note Author Maya Talamantes [facility] Note Date/Time December 21, 2024 1:50p m [facility] Medical Records Department [address] [place] [address] Progress Note - Neurology 12/21/24 1336 MR#: [id number] Acct: [id number] Name: PEDRO PABLO SIERRA Rep #:[id number] : 1950 74 From: Maya Talamantes MD PCP: Dr. Daija Morton MD Status:ADM I N Location: [place] [address] Objective Data Objective Data Vital Signs: Vital [...] 75.1 H, Lymph % (Auto) 14.2 L, Rapides % (Auto) 8.5, Eos % (Auto) 1.2, [...] on keppra, PVD, and CDwho presented to [facility] ED on 12/17/2024 with dysarthria and [...] Continue daily anti-platelet med (Asa) for now. [facility] will need AC for Afib stroke prevention [...] Date Recorded By Document 12/21/24 08:35 DS [id number] 12/21/24 11:09 DS 12/21/24 08:35 NIH Stroke [...] Cosigner Signature (if applicable): CC: ~ Signed [facility] Work Phone: 1(334) 314-508507-05-2025 Progress note Author Lisha Talamantes [facility] Note Date/Time December 21, 2024 1:11p m [facility] Medical Records Department [address] [place] [address] Progress Note - Hospitalist 12/21/24 1243 MR#: [id number] Acct: [id number] Name: PEDRO PABLO SIERRA Rep #:[id number] : 1950 74 From: Lisha Talamantes DO PCP: Dr. Daija Morton MD Status:ADM I N [facility] Reason for Visit Reason for [...] 75.1 H, Lymph % (Auto) 14.2 L, Rapides % (Auto) 8.5, Eos % (Auto) 1.2, [...] Full code Charges/Coding Visit Charges Inpatient E&M: 04632 Subs Hosp L2 NIHSS NIHSS Nursing Documentation NIHSS Nursing Documentation: NIHSS: Ischemic Stroke/TIA Start: 12/17/24 18:52 Text: For PCU Patients: NIH and Neuro Check every 4 Status: Active hours, PRN and with change in RN caregiver. Freq: Q12 Protocol: Activity Type Activity Date Activity User E-sign Co-sign Detail Recorded Client Recorded Date Recorded By Document 12/21/24 08:35 DS [id number] 12/21/24 11:09 DS 12/21/24 08:35 NIH Stroke [...] Cosigner Signature (if applicable): CC: ~ Signed [facility] Work Phone: 1(575) 465-499807-04-2025 Progress note Author Lisha Talamantes [facility] Note Date/Time December 20, 2024 12:05 pm [facility] Medical Records Department [address] [place] [address] Progress Note - Hospitalist 12/20/24 0717 MR#: [id number] Acct: [id number] Name: PEDRO PABLO SIERRA Rep #:[id number] : 1950 74 From: Lisha Talamantes DO PCP: Dr. Daija Morton MD Status:ADM I N Location: [place] [address] Reason for Visit Reason for Visit: Difficulty [...] 79.1 H, Lymph % (Auto) 9.9 L, Rapides % (Auto) 8.5, Eos % (Auto) 1.2, [...] the right maxillary sinus. [facility] Const alert, no [...] Full code Charges/Coding Visit Charges Inpatient E&M: 13301 Subs Hosp L2 NIHSS NIHSS Nursing Documentation NIHSS Nursing Documentation: NIHSS: Ischemic Stroke/TIA Start: 12/17/24 18:52 Text: For PCU Patients: NIH and Neuro Check every 4 Status: Active hours, PRN and with change in RN caregiver. Freq: [id number] Protocol: Activity Type Activity Date Activity User E-sign Co-sign Detail Recorded Client Recorded Date Recorded By Document 12/20/24 05:53 MB [id number] 12/20/24 05:55 MB 12/20/24 05:53 NIH Stroke [...] Cosigner Signature (if applicable): CC: ~ Signed [facility] Work Phone: 1(988) 158-249307-04-2025 Progress note Author René Reno [facility] Note Date/Time December 20, 2024 11:53 am [facility] Medical Records Department [address] [place] [address] Progress Note - Neurology 12/20/24 1107 MR#: [id number] Acct: [id number] Name: PEDRO PABLO SIERRA Rep #:[id number] : 1950 74 From: René Damon PCP: Dr. Daija Morton MD Status:ADM I N Location: [place] [address] Objective Data Objective Data Vital Signs: Vital [...] 79.1 H, Lymph % (Auto) 9.9 L, Rapides % (Auto) 8.5, Eos % (Auto) 1.2, [...] awaiting PEG tube on Monday, failed with RESIDENTIAL COLLECTIONS. No NGT. EEG Results Procedure Details EEG [...] is controlled. Would prefer a DOAC for assisted AC. I would recommend re-evaluation of candiacy for AC despite the fall risk as the patient has an high risk of future embolic events ([id number] 10, HASBLED 4). His risk of a [...] goal <7, BP goal is 120/80 -recommend PT/OT/RESIDENTIAL COLLECTIONS consult. Will likely need PEG. consider NGT for alterative access in the meantime #seizure -recommend routine EEG as his aphasia does seen to be out of proportion to his infarct burden. would want to ensure no NCSE -it appears he was switched from CBZ to keppra during this admission. Ok to continue keppra alf if tolerating without adverse effects or recurrent seizures. ] NIHSS NIHSS Nursing Documentation NIHSS Nursing Documentation: NIHSS: Ischemic Stroke/TIA Start: 12/17/24 18:52 Text: For PCU Patients: NIH and Neuro Check every 4 Status: Active hours, PRN and with change in RN caregiver. Freq: Q12 Protocol: Activity Type Activity Date Activity User E-sign Co-sign Detail Recorded Client Recorded Date Recorded By Document 12/20/24 09:41 [id number] 12/20/24 09:46 12/20/24 09:41 NIH Stroke Scale [...] Cosigner Signature (if applicable): cc: ~* Signed [facility] Work Phone: 1(399) 717-966007-03-2025 Progress note Author Lisha Talamantes [facility] Note Date/Time December 19, 2024 4:09p m [facility] Medical Records Department [address] [place] [address] Progress Note - Hospitalist 12/19/24 0810 MR#: [id number] Acct: [id number] Name: PEDRO PABLO SIERRA Rep #:[id number] : 1950 74 From: Lisha Talamantes DO PCP: Dr. Diaja Morton MD Status:ADM I N Location: [place] [address] Reason for Visit Reason for Visit: Difficulty [...] 81.3 H, Lymph % (Auto) 9.0 L, Rapides % (Auto) 6.6, Eos % (Auto) 1.9, [...] in the right maxillary sinus. Reading Location: [facility] Physical Exam Const alert, no apparent distress [...] Full code Charges/Coding Visit Charges Inpatient E&M: 84252 Subs Hosp L2 NIHSS NIHSS Nursing Documentation NIHSS Nursing Documentation: NIHSS: Ischemic Stroke/TIA Start: 12/17/24 18:52 Text: For PCU Patients: NIH and Neuro Check every 4 Status: Active hours, PRN and with change in RN caregiver. Freq: [id number] Protocol: Activity Type Activity Date Activity User E-sign Co-sign Detail Recorded Client Recorded Date Recorded By Document 12/19/24 07:15 [id number] 12/19/24 07:43 12/19/24 07:15 NIH Stroke Scale [...] Cosigner Signature (if applicable): CC: ~ Signed [facility] Work Phone: 1(294) 371-328807-02-2025 Progress note Author Lisha Talamantes [facility] Note Date/Time December 18, 2024 2:59p m [facility] Medical Records Department [address] [place] [address] Progress Note - Hospitalist 12/18/24 1445 MR#: [id number] Acct: [id number] Name: PEDRO PABLO SIERRA Shannan Rep #:[id number] : 1950 74 From: Lisha Talamantes DO PCP: Dr. Daija Morton MD Status:ADM I NO Location: [place] [address] Reason for Visit Reason for Visit: Diagnoses [...] (Auto) 77.5 H, Lymph % (Auto) 12.1 L,Rapides % (Auto) 7.8, Eos % (Auto) 1.1, [...] as noted. Findings were called to the [facility] emergency department on 12/17/2024 at 4:35 p.m. Reading Location: [id number] Head/Neck CTA 12/17/24 15:53 IMPRESSION: Right ICA stenosis of 75%. Left ICA stenosis of 50%. Additional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 let pcp office know, they opened this patient's case yesterday, and if pcp office needs anything to please let them know. documented in this encounterOhio Valley Surgical Hospital06-18-2025 Telephone encounter Note * Telephone Encounter - Mary Lovelace LPN - 12/04/2024 9:06 AM EDT Alie NOTIFIED OF SAME. [facility]06-18-2025 Miscellaneous Notes* Telephone Encounter - Mary Lovelace LPN - 12/04/2024 9:06 AM EDT Alie NOTIFIED OF SAME. * Telephone Encounter - Daija Morton MD - 12/03/2024 9:52 PM EDT yes * Telephone Encounter - Marguerite Roper RN - 12/03/2024 1:32 PM EDT Alie calling from [facility] pt will be discharging from [facility]. Asking if provider will sign and follow patient for residential and Physical Therapy orders? Call [phone] with reply. Marguerite Roper RN documented in this encounterOhio Valley Surgical Hospital06-17-2025 Telephone encounter Note * Telephone Encounter - Daija Morton MD - 12/03/2024 9:52 PM EDT yes [facility]06-17-2025 Telephone encounter Note* Telephone Encounter - Marguerite Roper RN - 12/03/2024 1:32 PM EDT Alie calling from [facility] pt will be discharging from [facility]. Asking if provider will sign and follow patient for residential and Physical Therapy orders? Call [phone] with reply. Marguerite Roper RN [facility]03-17-2025 Consult note [facility] Medical Records Department [address] [place] [address] Counseling Note - Pharmacy 09/02/24 1507 MR#: [id number] Acct: [id number] Name: PEDRO PABLO SIERRA Rep #:[id number] : 1950 74 From: Shanell Hyatt PCP: Dr. Daija Morton MD Status:ADM I N Y Location: [address] Med Reconciliation Pharmacy Service has performed [...] Signature (if applicable): Date CC: ~ Signed [facility]03-17-2025 Discharge summary Author Brody Maynard [facility] Note Date/Time September 02, 2024 3:0 9pm [facility] Medical Records Department [address] [place] [address] Discharge Summary 09/02/24 1459 MR#: [id number] Acct: [id number] Name: PEDRO PABLO SIERRA Rep #:[id number] : 1950 74 From: Brody Damon PCP: Dr. Dajia Morton MD Status:ADM I N Location: [facility] SE270-8 Providers Date of Admission: 08/27/24 Date of [...] diarrhea, generalized weakness after recent discharge from [facility]. Patient was found to have UTI, ESBL E. coli. He also has mild COPD exacerbation. # Generalized weakness/debility/failure to thrive -Patient recently had been at [facility] and was discharged 08/20/2024 buthas [...] and DC plan in place -08/30: Awaiting [facility] and APS determinations about payee so that patient can be placed at [facility], further dispo pending this -08/31: [...] in before D/C Order can be placed): Long Term Facility Charges/Coding Visit Charges Inpatient E&M: 98714 Disch Hosp >30min 09/02/24 1509 <Electronically signed by Brody Maynard MD> Cosigner Signature (if applicable): CC: Dr. Daija Morton MD; Dr. Brody Maynard MD~ Signed [facility] Work Phone: 1(927) 491-746603-17-2025 Consult note Author Shanell Hyatt [facility] Note Date/Time September 02, 2024 9:3 5pm [facility] Medical Records Department [address] [place] [address] Counseling Note - Pharmacy 09/02/24 1507 MR#: [id number] Acct: [id number] Name: PEDRO PABLO SIERRA Rep #:[id number] : 1950 74 From: Shanell Hyatt PCP: Dr. Daija Morton MD Status:ADM I N Y Location: [place] [address] Pharmacy [place] Med Reconciliation Pharmacy Service has performed discharge [...] Signature (if applicable): Date CC: ~ Signed [facility] Work Phone: 1(874) 895-734003-17-2025 Discharge summary Author Brody Maynard [facility] Note Date/Time September 02, 2024 2:5 8pm [facility] Medical Records Department [address] [place] [address] Transfer to [facility] MR#: [id number] Acct: [id number] Name: PEDRO PABLO SIERRA Rep #:[id number] : 1950 74 From: Brody Damon PCP: [...] PRIOR TO HIS/HER TRANSFER TO [facility]. 09/02/24 1458<Electronically signed by Brody Maynard [...] to thrive -Patient recently had been at [facility] and was discharged 08/20/2024 buthas [...] and DC plan in place -08/30: Awaiting [facility] and APS determinations about payee so that patient can be placed at [facility], further dispo pending this -08/31: [...] in before D/C Order can be placed): Long Term Facility 09/02/24 6276 <Electronically signed by Brody Maynard MD> Cosigner Signature (if applicable): CC: Dr. Daija Morton MD; Dr. Lisha Talamantes DO; Dr. Celia Toribio MD; Dr. Ashley MD ~ [facility] Work Phone: 1(198) 131-998003-17-2025 Progress note Author [facility] Note Date/Time September 02, 2024 2:2 8pm [facility] Medical Records Department [address] [place] [address] Progress Note - Infect Disease 09/02/24 1425 MR#: [id number] Acct: [id number] Name: PEDRO PABLO SIERRA Rep #:[id number] : 1950 74 From: Elton pierce MD PCP: Dr. Daija Morton MD Status:ADM I N Location: [place] [address] Physical Exam Narrative C/o some dysuria. No [...] Cosigner Signature (if applicable): CC: ~ Signed [facility] Work Phone: 1(425) 732-617103-17-2025 Discharge summary [facility] Medical Records Department [address] [place] [address] Discharge Summary 09/02/24 1459 MR#: [id number] Acct: [id number] Name: PEDRO PABLO SIERRA Rep #:[id number] : 1950 74 From: Brody Damon PCP: Dr. Daija Morton MD Status:ADM I N Location: [place] [address]1 Providers Date of Admission: 08/27/24 Date of [...] diarrhea, generalized weakness after recent discharge from [facility]. Patient was found to have UTI, ESBL E. coli. He also has mild COPD exacerbation. # Generalized weakness/debility/failure to thrive -Patient recently had been at [facility] and was discharged 08/20/2024 buthas [...] and DC plan in place -08/30: Awaiting [facility] and [facility]PS determinations about payee so that patient can be placedat [facility], further dispo pending this -08/31: [...] in before D/C Order can be placed): Long Term Facility Charges/Coding Visit Charges Inpatient E&M: 79123 Disch Hosp >30min 09/02/24 1509 Cosigner Signature (if applicable): CC: Dr. Daija Morton MD; Dr. Brody Maynard MD~ Signed [facility]03-17-2025 [facility] [place]25 Discharge summary [facility] Medical Records Department [address] [place] [address] Transfer to [facility] MR#: [id number] Acct: [id number] Name: PEDRO PABLO SIERRA Rep #:[id number] : 1950 74 From: Brody Damon PCP: Dr. Daija Morton MD Status:ADM I N Certification of patient admission REQUIRED AT TIME OF ADMISSION. I CERTIFY THAT [facility] ARE REQUIRED TO BE GIVEN ON AN IN-PATIENT BASIS BECAUSE OF THE ABOVE NAMED PATIENT'S NEED FOR CUSTODIAL CARE ON A CONTINUING BASIS FOR THE CONDITION(S) FOR WHICH HE/SHE WAS RECEIVING IN-PATIENT HOSPITAL SERVICES PRIOR TO HIS/HER TRANSFER TO THE [facility]. 09/02/24 1458 Diet Diet Order/Speech Therapy: 08/25/24 19:21 Diet: Cardiac - Heart Healthy Food consistency:: Regular Liquid Consistency:: Regular/Thin DC O2, CPAP, BIPAP needs Home O2 Discharge instructions: No Problem/Diagnosis (1) Weakness: Status: Acute Code(s): R53.1 - Weakness (2) Acute diarrhea: Status: Acute Code(s): R19.7 - Diarrhea, unspecified Plan # Generalized weakness/debility/failure to thrive -Patient recently had been at [facility] and was discharged 08/20/2024 buthas [...] and DC plan in place -08/30: Awaiting [facility] and [facility] determinations about payee so that patient can be placedat [facility], further dispo pending this -08/31: [...] in before D/C Order can be placed): Long Term Facility 09/02/24 7773 Cosigner Signature (if applicable): CC: Dr. Daija Morton MD; Dr. Lisha Talamantes DO; Dr. Celia Toribio MD; Dr. Ashley MD ~ [facility]03-17-2025 Progress note [facility] Medical Records Department [address] [place] [address] Progress Note - Infect Disease 09/02/24 1425 MR#: [id number] Acct: [id number] Name: PEDRO PABLO SIERRA Rep #:[id number] : 1950 74 From: Elton pierce MD PCP: Dr. Daija Morton MD Status:ADM I N Location: [place] [address] Physical Exam Narrative C/o some dysuria. No [...] Cosigner Signature (if applicable): CC: ~ Signed [facility]03-16-2025 Progress note Author Celia Toribio [facility] Note Date/Time September 01, 2024 11: 27am [facility] Medical Records Department [address] [place] [address] Progress Note - Hospitalist 09/01/24 0758 MR#: [id number] Acct: [id number] Name: PEDRO PABLO SIERRA Rep #:[id number] : 1950 74 From: Celia Toribio MD PCP: Dr. Daija Morton MD Status:ADM I N Location: [place] [address] Reason for Visit Reason for Visit: Diagnoses [...] (Auto) 70.9 H, Lymph % (Auto) 20.9, Rapides % (Auto) 6.2, Eos % (Auto) 0.4, [...] to thrive -Patient recently had been at [facility] and was discharged 08/20/2024 buthas been having diarrhea since that time -May be due to diarrhea but cannot say definitively, checking UA -PT/OT -08/27: UA ordered, yet to be collected, will follow-up, continue to work with physical therapy, case management social work following -08/28: Patient now agreeable to placement, placement avenues been pursued -08/29: Patient pending acceptance and pre-CERT for [facility], patient stable and willbe cleared for discharge once antibiotic and DC plan in place -08/30: Awaiting [facility] and [facility] determinations about payee so that patient can be placed at [facility], further dispo pending this -08/31: [...] Toribio MD Charges/Coding Visit Charges Inpatient E&M: 46127 Subs Hosp L1 09/01/24 8584 <Electronically signed by Celia Toribio MD> Cosigner Signature (if applicable): CC: ~ Signed [facility] Work Phone: 1(764) 179-908703-16-2025 Progress note [facility] Medical Records Department [address] [place] [address] Progress Note - Hospitalist 09/01/24 0758 MR#: [id number] Acct: [id number] Name: PEDRO PABLO SIERRA Rep #:[id number] : 1950 74 From: Celia Toribio MD PCP: Dr. Daija Morton MD Status:ADM I N Location: [place] [address] Reason for Visit Reason for Visit: Diagnoses [...] %(Auto) 70.9 H, Lymph % (Auto) 20.9, Rapides % (Auto) 6.2, Eos % (Auto) 0.4, [...] to thrive -Patient recently had been at [facility] and was discharged 08/20/2024 buthas [...] and DC plan in place -08/30: [facility]ee so that patient can be placedat [facility], further dispo pending this -08/31: [...] Toribio MD Charges/Coding Visit Charges Inpatient E&M: 07275 Subs Hosp L1 09/01/24 1127 Cosigner Signature (if applicable): CC: ~ Signed [facility]03-15-2025 Progress note Author Celia Toribio [facility] Note Date/Time August 31, 2024 12: 30pm [facility] Medical Records Department [address] [place] [address] Progress Note - Hospitalist 08/31/24 0748 MR#: [id number] Acct: [id number] Name: ARIEL SIERRAJAYY Pierce Rep #:[id number] : 1950 74 From: Celia Toribio MD PCP: Dr. Daija Morton MD Status:ADM I N Location: [facility] VJ992-5 Reason for Visit Reason for Visit: Diagnoses [...] to thrive -Patient recently had been at [facility] and was discharged 08/20/2024 buthas [...] and DC plan in place -08/30: Awaiting [facility] and [facility] determinations about payee so that patient can be placed at [facility], further dispo pending this -08/31: [...] documentation, 36minutes Charges/Coding Visit Charges Inpatient E&M: 14023 Subs Hosp L2 08/31/24 1230 <Electronically signed by Celia Toribio MD> Cosigner Signature (if applicable): CC: ~ Signed [facility] Work Phone: 1([phone]) 315-243103-15-2025 Progress note [facility] Medical Records Department [address] [place] [address] Progress Note - Hospitalist 08/31/24 0748 MR#: [id number] Acct: [id number] Name: PEDRO PABLO SIERRA Rep #:[id number] : 1950 74 From: Celia Toribio MD PCP: Dr. Daija Morton MD Status:ADM I N Location: [facility] YG035-2 Reason for Visit Reason for Visit: Diagnoses [...] to thrive -Patient recently had been at [facility] and was discharged 08/20/2024 buthas been having diarrhea since that time -May be due to diarrhea but cannot say definitively, checking UA -PT/OT -08/27: UA ordered, yet to be collected, will follow-up, continue to work with physical therapy, case management social work following -08/28: Patient now agreeable to placement, placement avenues been pursued -08/29: Patient pending acceptance and pre-CERT for [facility], patient stable and willbe cleared for discharge once antibiotic and DC plan in place -08/30: Awaiting [facility] and [facility] determinations about payee so that patient can be placedat [facility], further dispo pending this -08/31: [...] documentation, 36minutes Charges/Coding Visit Charges Inpatient E&M: 99258 Subs Hosp L2 08/31/24 1230 Cosigner Signature (if applicable): CC: ~ Signed [facility]03-14-2025 Consult note Author Elton Moore [facility] Note Date/Time August 30, 2024 1:4 6pm [facility] Medical Records Department [address] [place] [address] Consultation - Infectious Dx 08/30/24 1343 MR#: [id number] Acct: [id number] Name: PEDRO PABLO SIERRA Rep #:[id number] : 1950 74 From: Elton pierce MD PCP: Dr. Daija Morton MD Status:ADM I N Location: [place] [address] Assessment & Plan Assessment/Plan (1) Weakness: (2) [...] performed and neg except as noted above. [facility] Medical History Compression fx, lumbar [...] (Auto) 64.8, Lymph % (Auto) 17.8 L, Rapides % (Auto) 7.6, Eos % (Auto) 7.8 [...] applicable): CC: Dr. Daija Morton MD~ Signed [facility] Work Phone: [phone]) 417-472503-14-2025 Consult note [facility] Medical Records Department [address] [place] [address] Consultation - Infectious Dx 08/30/24 1343 MR#: [id number] Acct: [id number] Name: PEDRO PABLO SIERRA Shannan Rep #:[id number] : 1950 74 From: Elton pierce MD PCP: Dr. Daija Morton MD Status:ADM I N Location: [place] [address] Assessment & Plan Assessment/Plan (1) Weakness: (2) [...] performed and neg except as noted above. [facility] Medical History Compression fx, lumbar [...] %(Auto) 64.8, Lymph % (Auto) 17.8 L, Rapides % (Auto) 7.6, Eos % (Auto) 7.8 [...] applicable): CC: Dr. Daija Morton MD~ Signed [facility]03-14-2025 Progress note Author Celia Toribio [facility] Note Date/Time August 30, 2024 11: 11am [facility] Medical Records Department [address] [place] [address] Progress Note - Hospitalist 08/30/24 0709 MR#: [id number] Acct: [id number] Name: PEDRO PABLO SIERRA Rep #:[id number] : 1950 74 From: Celia Toribio MD PCP: Dr. Daija Morton MD Status:ADM I N Location: [place] [address] Reason for Visit Reason for Visit: Diagnoses [...] (Auto) 64.8, Lymph % (Auto) 17.8 L, Rapides % (Auto) 7.6, Eos % (Auto) 7.8 [...] to thrive -Patient recently had been at [facility] and was discharged 08/20/2024 buthas been having diarrhea since that time -May be due to diarrhea but cannot say definitively, checking UA -PT/OT -08/27: UA ordered, yet to be collected, will follow-up, continue to work with physical therapy, case management social work following -08/28: Patient now agreeable to placement, placement avenues been pursued -08/29: Patient pending acceptance and pre-CERT for [facility], patient stable and willbe cleared for discharge once antibiotic and DC plan in place -08/30: Awaiting [facility] and [facility] determinations about payee so that patient can be placed at [facility], further dispo pending this # [...] documentation, 36minutes Charges/Coding Visit Charges Inpatient E&M: 69161 Subs Hosp L2 08/30/24 1111 <Electronically signed by Celia Toribio MD> Cosigner Signature (if applicable): CC: ~ Signed [facility] Work Phone: [phone]) 799-744103-14-2025 Progress note [facility] Medical Records Department [address] [place] [address] Progress Note - Hospitalist 08/30/24 0709 MR#: [id number] Acct: [id number] Name: PEDRO PABLO SIERRA Rep #:[id number] : 1950 74 From: Celia Toribio MD PCP: Dr. Daija Morton MD Status:ADM I N Location: [place] [address] Reason for Visit Reason for Visit: Diagnoses [...] %(Auto) 64.8, Lymph % (Auto) 17.8 L, Rapides % (Auto) 7.6, Eos % (Auto) 7.8 [...] to thrive -Patient recently had been at [facility] and was discharged 08/20/2024 buthas [...] and DC plan in place -08/30: Awaiting [facility] and [facility] determinations about payee so that patient can be placedat [facility], further dispo pending this # [...] documentation, 36minutes Charges/Coding Visit Charges Inpatient E&M: 94760 Subs Hosp L2 08/30/24 1111 Cosigner Signature (if applicable): CC: ~ Signed [facility]03-13-2025 Progress note Author Celia Toribio [facility] Note Date/Time August 29, 2024 5:2 5pm [facility] Medical Records Department [address] [place] [address] Progress Note - Hospitalist 08/29/24 0805 MR#: [id number] Acct: [id number] Name: PEDRO PABLO SIERRA Rep #:[id number] : 1950 74 From: Celia Toribio MD PCP: Dr. Daija Morton MD Status:ADM I N Location: [facility] ZP133-3 Reason for Visit Reason for Visit: Diagnoses [...] % (Auto) 59.8, Lymph % (Auto) 22.3, Rapides % (Auto) 8.0, Eos % (Auto) 8.2 [...] to thrive -Patient recently had been at [facility] and was discharged 08/20/2024 buthas [...] documentation, 35minutes Charges/Coding Visit Charges Inpatient E&M: 81582 Subs Hosp L2 08/29/24 1725 <Electronically signed by Celia Toribio MD> Cosigner Signature (if applicable): CC: ~ Signed [facility] Work Phone: 1(671) 121-983003-13-2025 Progress note [facility] Medical Records Department [address] [place] [address] Progress Note - Hospitalist 08/29/24 08 MR#: [id number] Acct: [id number] Name: PEDRO PABLO SIERRA Rep #:[id number] : 1950 74 From: Celia Toribio MD PCP: Dr. Daija Morton MD Status:ADM I N Location: [facility] TT838-7 Reason for Visit Reason for Visit: Diagnoses [...] % (Auto) 59.8, Lymph % (Auto) 22.3, Rapides % (Auto) 8.0, Eos % (Auto) 8.2 [...] to thrive -Patient recently had been at [facility] and was discharged 08/20/2024 buthas [...] documentation, 35minutes Charges/Coding Visit Charges Inpatient E&M: 51381 Subs Hosp L2 08/29/24 8993 Cosigner Signature (if applicable): CC: ~ Signed [facility]03-12-2025 Progress note Author Celia Toribio [facility] Note Date/Time August 28, 2024 3:0 4pm [facility] Medical Records Department [address] [place] [address] Progress Note - Hospitalist 08/28/24 1458 MR#: [id number] Acct: [id number] Name: PEDRO PABLO SIERRA Rep #:[id number] : 1950 74 From: Celia Toribio MD PCP: Dr. Daija Morton MD Status:ADM I N Location: [place] [address] Reason for Visit Reason for Visit: Diagnoses [...] % (Auto) 55.6, Lymph % (Auto) 23.4, Rapides % (Auto) 11.3 H, Eos % (Auto) [...] to thrive -Patient recently had been at [facility] and was discharged 08/20/2024 buthas [...] documentation, 35minutes Charges/Coding Visit Charges Inpatient E&M: 98857 Subs Hosp L2 08/28/24 3235 <Electronically signed by Celia Toribio MD> Cosigner Signature (if applicable): CC: ~ Signed [facility] Work Phone: 1(570) 598-373403-12-2025 Progress note [facility] Medical Records Department [address] [place] [address] Progress Note - Hospitalist 08/28/24 1335 MR#: [id number] Acct: [id number] Name: PEDRO PABLO SIERRA Rep #:[id number] : 1950 74 From: Celia Toribio MD PCP: Dr. Daija Morton MD Status:ADM I N Location: [facility] JT758-7 Reason for Visit Reason for Visit: Diagnoses [...] % (Auto) 55.6, Lymph % (Auto) 23.4, Rapides % (Auto) 11.3 H, Eos % (Auto) [...] to thrive -Patient recently had been at [facility] and was discharged 08/20/2024 buthas [...] documentation, 35minutes Charges/Coding Visit Charges Inpatient E&M: 21692 Subs Hosp L2 08/28/24 1504 Cosigner Signature (if applicable): CC: ~ Signed [facility]03-11-2025 Evaluation note* Diagnosis Onset Date Resolution Status Admit Date Acute diarrhea acute August 6:22pm Debility acute August 27 6:22pm Weakness acute August 27 6:22pm 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 August 172024 6:22pm [facility] Work Phone: [phone]) 592-748703-11-2025 Evaluation note* Diagnosis Onset Date Resolution Status Admit Date Acute diarrhea resolved August 6:22pm Debility inactive August 27 6:22pm Failure to thrive inactive August 172024 6:22pm Weakness inactive August 27 6:22pm [facility] Work Phone: 1([phone]) 889-649203-11-2025 Evaluation note* Diagnosis Onset Date Resolution Status Admit Date Acute diarrhea resolved August 6:22pm Debility inactive August 27 6:22pm Failure to thrive inactive August 172024 6:22pm Weakness inactive August 27 6:22pm COPD exacerbation chronic December 132024 8:07pm [facility] Work Phone: 1(230) 700-549003-11-2025 Evaluation note* Diagnosis Onset Date Resolution Status Admit Date Acute diarrhea resolved August 6:22pm Debility inactive August 27 6:22pm Failure to thrive inactive August 172024 6:22pm Weakness inactive August 27 6:22pm Acute on chronic respiratory failure with hypoxia and hypercapnia chronic December 13, 2024 8:07pm COPD exacerbation chronic December 132024 8:07pm [facility] Work Phone: [phone]) 747-582103-11-2025 Evaluation note* Diagnosis Onset Date Resolution Status [...] December 5:51pm Hypertension chronic December 17 5:51pm [facility] Work Phone: [phone] 250-196903-11-2025 Evaluation note* Diagnosis Onset Date Resolution Status [...] 2 :58pm COPD exacerbation resolved December 2:58pm [facility] Work Phone: [phone]) 993-623203-11-2025 Progress note Author Celia Toribio [facility] Note Date/Time August 27, 2024 4:1 3pm [facility] Medical Records Department [address] [place] [address] Progress Note - Hospitalist 08/27/241612 MR#: [id number] Acct: [id number] Name: PEDRO PABLO SIERRA Shannan Rep #:[id number] : 1950 74 From: Celia Toribio MD PCP: Dr. Daija Morton MD Status:ADM I NO Location: [place] [address] Hospitalist Note Repeat hemoglobin actually improved, suspect that this was then margin of bladder, will DC FOBT 08/27/241612 <Electronically signed by Celia Toribio MD> Cosigner Signature (if applicable): CC: ~ Signed [facility] Work Phone: [phone]) 824-151403-11-2025 Progress note [facility] Medical Records Department [address] [place] [address] Progress Note - Hospitalist 08/27/241612 MR#: [id number] Acct: [id number] Name: PEDRO PABLO SIERRA R Rep #:[id number] : 1950 74 From: Celia Toribio MD PCP: Dr. Daija Morton MD Status:ADM I NO Location: [facility] UL292-3 Hospitalist Note Repeat hemoglobin actually improved, suspect that this was then margin of bladder, will DC FOBT 08/27/24 1613 Cosigner Signature (if applicable): CC: ~ Signed [facility]03-11-2025 Progress note Author [facility] Note Date/Time August 27, 2024 1:3 2pm [facility] Medical Records Department [address] [place] [address] Progress Note - Hospitalist 08/27/24 1332 MR#: [id number] Acct: [id number] Name: PEDRO PABLO SIERRA R Rep #:[id number] : 1950 74 From: Celia Toribio MD PCP: Dr. Daija Morton MD Status:ADM I NO Location: [place] [address] Hospitalist Note UA abnormal and is suggestive of UTI and given this and patient suprapubic tenderness we will start patient on Rocephin and await urine culture 08/27/24 1332 <Electronically signed by Celia Toribio MD> Cosigner Signature (if applicable): CC: ~ Signed [facility] Work Phone: [phone]) [phone] Progress note Author [facility] Note Date/Time August 27, 2024 12: 52pm [facility] Medical Records Department [address] [place] [address] Progress Note - Hospitalist 08/27/24 0831 MR#: [id number] Acct: [id number] Name: PEDRO PABLO SIERRA R Rep #:[id number] : 1950 74 From: Celia Toribio MD PCP: Dr. Daija Morton MD Status:ADM I NO Location: [facility] YM788-7 Reason for Visit Reason for Visit: Diagnoses [...] Neut % (Auto) 56.2, Lymph % (Auto) 23.0,Rapides % (Auto) 13.1 H, Eos % (Auto) [...] to thrive -Patient recently had been at [facility] and was discharged 08/20/2024 buthas [...] documentation, 36minutes Charges/Coding Visit Charges Inpatient E&M: 76985 Subs Hosp L2 08/27/24 1252 <Electronically signed by Celia Toribio MD> Cosigner Signature (if applicable): CC: ~ Signed [facility] Work Phone: [phone]) 802-769503-11-2025 Progress note [facility] Medical Records Department [address] [place] [address] Progress Note - Hospitalist 08/27/24 1332 MR#: [id number] Acct: [id number] Name: PEDRO PABLO SIERRA Rep #:[id number] : 1950 74 From: Celia Toribio MD PCP: Dr. Daija Morton MD Status:ADM I NO Location: [facility] IK746-3 Hospitalist Note UA abnormal and is suggestive of UTI and given this and patient suprapubic tenderness we will startpatient on Rocephin and await urine culture 08/27/24 1332 Cosigner Signature (if applicable): CC: ~ Signed [facility]03-11-2025 Progress note [facility] Medical Records Department [address] [place] [address] Progress Note - Hospitalist 08/27/24 0831 MR#: [id number] Acct: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 Valley [facility] Hospital05-31-2024 Telephone encounter Note * Telephone Encounter - Jacquie Barnes - 11/17/2023 2:08 PM EDT Lynnette from [facility] called asking if Nevaeh Luu would follow mcc orders Lynnette can be reached at [phone] patient does have appointment on 11/20 Please advise [facility] Work Phone: 1(789) 434-400405-30-2024 Telephone encounter Note* Telephone Encounter - Kaye Manley LPN - 11/16/2023 3:35 PM EDT Spoke with Magno gave information provided. Pt voices understanding. [facility]05-30-2024 Miscellaneous Notes* Telephone Encounter - Kaye Manley LPN - 11/16/2023 3:35 PM EDT Spoke with Magno gave information provided. Pt voices understanding. * Telephone Encounter - Rebekah Luu PA-C - 11/16/2023 2:40 PM EDT PCP-Dr. Morton can follow patient. Rebekah Luu PA-C * Telephone Encounter - Pina Shah LPN - 11/15/2023 2:13 PM EDT Magno from [facility] asking if you will follow? Please advise. documented in this encounterOhio Valley Surgical Hospital05-30-2024 Telephone encounter Note * Telephone Encounter - Rebekah Luu PA-C - 11/16/2023 2:40 PM EDT PCP-Dr. Morton can follow patient. Rebekah Luu PA-C [facility] Work Phone: [phone]) 903-314405-29-2024 Telephone encounter Note* Telephone Encounter - Pina Shah LPN - 11/15/2023 2:13 PM EDT Magno from [facility] asking if you will follow? Please advise. [facility] Work Phone: 1(485) 991-296005-23-2024 Telephone encounter Note* Telephone Encounter - Berta Zazueta MA - 11/09/2023 1:41 PM EDT No name or return number was given. Was able to locate number online and information given to intake nurse. [facility]05-23-2024 Miscellaneous Notes* Telephone Encounter - Berta [...] Barnes - 11/09/2023 11:17 AM EDT [facility] called asking if provider or RN UNIT MANAGER would be willing to follow for on going home care orders (Patient being discharged from [facility]) Please advise documented in this encounter[facility]24 Telephone encounter Note * Telephone Encounter - Anjel Braga APRN.CNP - 11/09/2023 12:52 PM EDT Provider agrees to follow at this time. Anjel Braga APRN.CNP [facility]05-23-2024 Telephone encounter Note* Telephone Encounter - Jacquie Barnes - 11/09/2023 11:17 AM EDT [facility] called asking if provider or RN UNIT MANAGER would be willing to follow for on going home care orders (Patient being discharged from [facility]) Please advise [facility] Work Phone: 1(725) 324-378405-02-2024 Telephone encounter Note* Telephone Encounter - Harriett Albert APRN.CNS - 10/19/2023 4:49 PM EDT Noted [facility]05-02-2024 Miscellaneous Notes* Telephone Encounter - Harriett Albert APRN.CNS - 10/19/2023 4:49 PM EDT Noted * Telephone Encounter - Nani Webb LPN - 10/19/2023 4:17 PM EDT FYI: Lit, physician locums urgent care with [facility] calling to let you know pt is now approved for MyCare Waiver. Pt will be receiving MyCare [employer] Waiver. Pt is still in custodial [facility]. Nani Webb LPN documented in this encounterOhio Valley Surgical Hospital05-02-2024 Telephone encounter Note * Telephone Encounter - Nani Webb LPN - 10/19/2023 4:17 PM EDT FYI: Lit physician locums urgent care with [facility] calling to let you know pt is now approved for MyCare Waiver. Pt will be receiving MyCare [employer] Waiver. Pt is still in custodial [facility]. Nani Webb LPN [facility]03-04-2024 History of Present illness Narrative* Lisa [...] 21, 2023 10:47 AM documented in this encounterOhio Valley Surgical Hospital02-19-2024 Miscellaneous Notes* Telephone Encounter - Rosaura [...] Please advise. Emilie Flowers documented in this encounterOhio Valley [facility] Hospital02-14-2024 Discharge summary Author Ryan Guerin [facility] August 02, 2023 4:20pm Note Date/Time August 02, 2023 4:00pm [facility] Medical Records Department [address] [place] [address] Transfer to [facility] MR#: [id number] Acct: [id number] Name: PEDRO PABLO SIERRA Rep #:[id number] : 1950 73 From: Ryan Guerin DO [...] PRIOR TO HIS/HER TRANSFER TO [facility]. 08/02/23 1620<Electronically signed by Ryan Guerin [...] Cardiac / Consistent CHO - consistency per RESIDENTIAL COLLECTIONS. Monitor need for po supplement pending po [...] in before D/C Order can be placed): Long Term Facility 08/02/23 1620 <Electronically signed by Ryan Guerin DO> Cosigner Signature (if applicable): CC: Dr. Daija Morton MD; Dr. Brody Maynard MD ~ [facility] Work Phone: 1(831) 538-902202-13-2024 Progress note Author Ryan [facility] August 01, 2023 3:34pm Note Date/Time August 01, 2023 3:34pm [facility] Medical Records Department [address] [place] [address] Progress Note - Hospitalist 08/01/23 1531 MR#: [id number] Acct: [id number] Name: PEDRO PABLO SIERRA Rep #:[id number] : 1950 73 From: Ryan Guerin DO [...] will need precertification to return to his [facility] facility. Objective Data Objective Data Vital Signs: [...] 25 minutes Charges/Coding Visit Charges Inpatient E&M: 14309 Subs Hosp L1 08/01/23 0775 <Electronically signed by Ryan Guerin DO> Cosigner Signature (if applicable): CC: ~ Signed [facility] Work Phone: 1(150) 865-105702-12-2024 Progress note Author Ryan Guerin [facility] July 31, 2023 5:02pm Note Date/Time July 31, 2023 4:57pm [facility] Medical Records Department [address] [facility] [place] [address] Progress Note - Hospitalist 07/31/23 8242 MR#: [id number] Acct: [id number] Name: PEDRO PABLO SIERRA Rep #:[id number] : 1950 73 From: Ryan Guerin DO [...] 76.5 H, Lymph % (Auto) 10.9 L, Rapides % (Auto) 10.7 H, Eos % (Auto) [...] Clarity Clear, Urine pH 7.0, Ur Specific Ballwin 1.010, Urine Protein 30 H, Urine Glucose [...] 85.0 H, Lymph % (Auto) 7.1 L, Rapides % (Auto) 7.1, Eos % (Auto) 0.0, [...] 35 minutes Charges/Coding Visit Charges Inpatient E&M: 36088 Subs Hosp L2 07/31/23 1702 <Electronically signed by Ryan Guerin DO> Cosigner Signature (if applicable): CC: ~ Signed [facility] Work Phone: 1(834) 760-251102-12-2024 History and physical note Author Brody Maynard [facility] July 31, 2023 1:01am Note Date/Time July 30, 2023 11:50pm [facility] Medical Records Department [address] [place] [address] H&P Exam - Hospitalist 07/30/23 6307 MR#: [id number] Acct: [id number] Name: PEDRO PABLO SIERRA Rep #:[id number] : 1950 73 From: Brody Damon PCP: [...] 3 to 5 L of oxygen from [facility] came to ED for shortness of breath [...] 20 mg IV. Patient is further admitted [facility] Medical History Asthma Atrial fibrillation Chronic pain [...] 76.5 H, Lymph % (Auto) 10.9 L, Rapides % (Auto) 10.7 H, Eos % (Auto) [...] Clarity Clear, Urine pH 7.0, Ur Specific Ballwin 1.010, Urine Protein 30 H, Urine Glucose [...] side. 5. Moderate to severe chronic malnutrition: Documentum Consultant consult. Nutritional supplement. 6. History of paroxysmal [...] 76.5 H, Lymph % (Auto) 10.9 L, Rapides % (Auto) 10.7 H, Eos % (Auto) [...] Clarity Clear, Urine pH 7.0, Ur Specific Ballwin 1.010, Urine Protein 30 H, Urine Glucose [...] EST , Charges/Coding Visit Charges Inpatient E&M: 02401 Init Hosp L3 07/31/23 0101 <Electronically signed by Brody Maynard MD> Cosigner Signature (if applicable): CC: Dr. Daija Morton MD; Dr. Brody Maynard MD~ Signed [facility] Work Phone: 1(506) 889-337702-12-2024 Discharge summary Author Huber Alvarado [facility] July 31, 2023 12:08am Note Date/Time July 30, 2023 8:57pm [facility] Medical Records Department [address] [place] [address] Emergency Department Summary 07/30/23 MR#: [id number] Acct: [id number] Name: PEDRO PABLO SIERRA Rep #:[id number] : 1950 73 From: Андрей CORTEZ PCP: [...] here on 24 July, discharged to a custodial. Per the custodial, the patient was more short of breath, tachypneic, and was wheezing more. Patient is alert and oriented to self. Patient is coarse, not answering to my questions. He is aggressive and is answering. I am not sure ifthis is his baseline. Patient's vital signs are stable on his 3 to 5 L of nasalcannula oxygen, patient is tachypneic. He does have audible wheezing. [facility] <DIEGO Hopper - Last Filed: 07/30/23 22:27> [facility] Medical History Asthma Atrial fibrillation Chronic pain [...] Cannula Oxygen Flow Rate (L/min) 3 3 [facility] <DIEGO Hopper - Last Filed: 07/30/23 22:27> [facility] Lab Data Labs: Laboratory Results - last 24 hr 07/30/23 07/30/23 20:51 21:55 WBC 5.5 RBC 4.07 L Hgb 13.3 Hct 40.4 MCV 99.3 H MCH 32.7 H MCHC 32.9 RDW Std Deviation 48.3 H RDW Coeff of Aly 13.2 Plt Count 262 MPV 9.4 Immature Gran % (Auto) 0.500 Neut % (Auto) 76.5 H Lymph % (Auto) 10.9 L Rapides % (Auto) 10.7 H Eos % (Auto) [...] Clarity Clear Urine pH 7.0 Ur Specific Ballwin 1.010 Urine Protein 30 H Urine Glucose [...] is moving all extremities. Currently at the custodial after sustaining a pubic rami fracture. Differential [...] Alvarado MD - Last Filed: 07/31/23 00:08> [facility] Narrative Medical decision making narrative: I have personally performed a face to face assessment of the patient and have reviewed the ANDREW Note. I performed a substantive portion of the visit including all aspects of the following. My echevarria findings include: History: This patient was sent in by custodial for increased blood pressure and increased dyspnea [...] think this would be tolerated at the custodial. He is tachypneic but not tachycardic. He [...] 76.5 H Lymph % (Auto) 10.9 L Rapides % (Auto) 10.7 H Eos % (Auto) [...] Clarity Clear Urine pH 7.0 Ur Specific Ballwin 1.010 Urine Protein 30 H Urine Glucose [...] A, COPD with acute exacerbation Disposition [facility]position: [facility] What to do if you have Problems For any increased pain, shortness of breath, bleeding, nausea or vomiting, chestpain, or any unexpected problems, contact your Primary Care Provider. Call [facility] ([phone]) or report to the closest Emergency Room. Call 911 if necessary. 07/30/232226 <Electronically signed by Андрей CORTEZ> Cosigner Signature (if applicable): 07/31/23 0008 <Electronically signed by Huber Alvarado MD> CC: Dr. Daija Morton MD ~ Signed [facility] Work Phone: 1(763) 566-462002-11-2024 Discharge summary Author Huber Alvarado [facility] July 31, 2023 12:08am Note Date/Time July 30, 2023 8:57pm [facility] Medical Records Department [address] [place] [address] Emergency Department Summary 07/30/23 MR#: [id number] Acct: [id number] Name: PEDRO PABLO SIERRA Rep #:[id number] : 1950 73 From: Андрей CORTEZ PCP: [...] here on 24 July, discharged to a custodial. Per the custodial, the patient was more short of breath, tachypneic, and was wheezing more. Patient is alert and oriented to self. Patient is coarse, not answering to my questions. He is aggressive and is answering. I am not sure ifthis is his baseline. Patient's vital signs are stable on his 3 to 5 L of nasalcannula oxygen, patient is tachypneic. He does have audible wheezing. [facility] <DIEGO Hopper - Last Filed: 07/30/23 22:27> [facility] Medical History Asthma Atrial fibrillation Chronic pain [...] 76.5 H Lymph % (Auto) 10.9 L Rapides % (Auto) 10.7 H Eos % (Auto) [...] Clarity Clear Urine pH 7.0 Ur Specific Ballwin 1.010 Urine Protein 30 H Urine Glucose [...] is moving all extremities. Currently at the custodial after sustaining a pubic rami fracture. Differential [...] Alvarado MD - Last Filed: 07/31/23 00:08> [facility] Narrative Medical decision making narrative: I have personally performed a face to face assessment of the patient and have reviewed the ANDREW Note. I performed a substantive portion of the visit including all aspects of the following. My echevarria findings include: History: This patient was sent in by custodial for increased blood pressure and increased dyspnea [...] think this would be tolerated at the custodial. He is tachypneic but not tachycardic. He [...] 76.5 H Lymph % (Auto) 10.9 L Rapides % (Auto) 10.7 H Eos % (Auto) [...] Clarity Clear Urine pH 7.0 Ur Specific Ballwin 1.010 Urine Protein 30 H Urine Glucose [...] acute exacerbation Disposition Disposition: Acute Care Hospital [facility] What to do if you have Problems For any increased pain, shortness of breath, bleeding, nausea or vomiting, chestpain, or any unexpected problems, contact your Primary Care Provider. Call [facility] ([phone]) or report to the closest Emergency Room. Call 911 if necessary. 07/30/232226 <Electronically signed by Андрей CORTEZ> Cosigner Signature (if applicable): 07/31/23 000 <Electronically signed by Huber Alvarado MD> CC: Dr. Daija Morton MD ~ Signed [facility] Work Phone: 1(937) 493-827902-01-2024 Miscellaneous Notes* Telephone Encounter - Saundra George [...] Message left on voicemail of Sondra Alejo [phone] to request Pedro Pablo contact the office for further triage. Saundra George RN documented in this encounterOhio Valley Surgical Hospital01-23-2024 Note. MICRO - Microbiology PROCEDURE: Urine Culture [*1] SOURCE: Urine, Clean Catch BODY SITE: COLLECTED DATE/TIME: 07/10/2023 12:00 EST RECEIVED DATE/TIME: 07/10/2023 16:50 EST START DATE/TIME: 07/10/2023 16:50 EST FREE TEXT SOURCE: FINAL REPORTS Final Report [] Verified Date/Time/Personnel: 07/11/2023 14:00 EST 10,000 - 50,000 cfu/ml Mixed growth consistent with normal urogenital kishore. Performing Locations *1: This test was performed at: [facility], [address] [place] [address], [id number]- , [facility]05-30-2023 Miscellaneous Notes* Telephone Encounter - Kelly Zelaya [...] you. Kelly Zelaya RN. documented in this encounterOhio Valley Surgical Hospital12-12-2023 Miscellaneous Notes* Telephone Encounter - Isabella Hdz LPN - 05/30/2023 2:39 PM EST Pharmacy calling requesting refills. Advises that pt just got discharged from custodial and theywould like to deliver these meds tomorrow if possible. Last refill Flomax and Proscar 02/28/23 Qty: 30 with 1 refill Last refill lidocaine patches 09/30/22 Qty: 15 with 0 refills JEANNINE 08/27/22 NOV none scheduled Isabella Hdz LPN documented in this encounterOhio Valley Surgical Hospital12-04-2023 Miscellaneous Notes* Telephone Encounter - Nani Webb LPN - 05/22/2023 10:17 AM EST [facility] called in and message below given. Stella's PH>[phone]. Nani Webb LPN * Telephone Encounter - Sammi Cleaning LPN - 05/19/2023 7:10 PM EST Message left on secure voicemail. Sammi Cleaning LPN * Telephone Encounter - Keara Shin MD - 05/19/2023 6:45 PM EST Okay verbal order * Telephone Encounter - Gabino Delgado RN - 05/19/2023 1:33 PM EST Kristina Roe [facility]- reports patient will be discharged today with orders for SN & PT. would like to see patient this weekend, and no later than Monday. Requesting verbal order to follow for [facility]. Please phone Etta with verbal: [phone] documented in this encounterOhio Valley Surgical Hospital10-17-2023 Discharge summary Author Frankie Galindo [facility] April 04, 2023 10:02am Note Date/Time April 04, 2023 9 :21am [facility] Medical Records Department [address] [place] [address] Transfer to [facility] MR#: [id number] Acct: [id number] Name: PEDRO PABLO SIERRA Rep #:[id number] : 1950 72 From: Frankie Galindo MD [...] for PT OT eval and social worker clinical to assist with discharge planning 3. Chronic [...] tamsulosin and finasteride 10. DVT prophylaxis ? 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 Will provide chocolate ensure compact tid [...] cbc while on iv abx. Fax to [phone] sennosides-docusate sodium [Stool Softener-Stimulant Laxat] 8.6-50 mg [...] in before D/C Order can be placed): Long Term Facility (1) UTI (urinary tract infection) Qualifiers: Urinary tract infection type: acute cystitis Hematuria presence: without hematuria Qualified Code(s): N30.00 - Acute cystitis without hematuria 04/04/23 1002 <Electronically signed by Frankie Galindo MD> Cosigner Signature (if applicable): CC: Dr. Daija Morton MD; Dr. Fran Cartwrgiht MD; Dr. Celia Toribio MD; Dr. Elton Moore MD ~ [facility] Work Phone: 1(407) 476-313310-17-2023 Progress note Author Frankie Galindo [facility] April 04, 2023 9:21am Note Date/Time April 04, 2023 7 :31am [facility] Medical Records Department [address] [place] [address] Progress Note - Hospitalist 04/04/2331 MR#: [id number] Acct: [id number] Name: PEDRO PABLO SIERRA Rep #:[id number] : 1950 72 From: Frankie Galindo MD PCP: Dr. Daija Morton MD Status:ADM I N Location: MS3 VP396-5 Reason for Visit Reason for Visit: Diagnoses [...] % (Auto) 64.4, Lymph % (Auto) 23.6, Rapides % (Auto) 6.3, Eos % (Auto) 3.3, [...] for PT OT eval and social worker clinical to assist with discharge planning 3. Chronic [...] documentation, 36minutes. Charges/Coding Visit Charges Inpatient E&M: 31356 Subs Hosp L2 04/04/23 0921 <Electronically signed by Frankie Galindo MD> Cosigner Signature (if applicable): CC: ~ Signed [facility] Work Phone: 1(658) 622-219510-16-2023 Consult note Author Elton Moore [facility] April 03, 2023 5:06pm Note Date/Time April 03, 2023 5 :04pm [facility] Medical Records Department [address] [place] [address] Consultation - Infectious Dx 04/03/23 1703 MR#: [id number] Acct: [id number] Name: PEDRO PABLO SIERRA Rep #:[id number] : 1950 72 From: Elton pierce MD PCP: Dr. Daija Morton MD Status:ADM I N Location: [place] [address] Assessment & Plan Assessment/Plan (1) Acute UTI: [...] performed and neg except as noted above. [facility] Medical History Asthma Atrial fibrillation Chronic pain [...] % (Auto) 63.8, Lymph % (Auto) 22.5, Rapides% (Auto) 7.6, Eos % (Auto) 3.9, Baso [...] Toribio MD; Dr. Elton Moore MD~ Signed [facility] Work Phone: 1(636) 125-188910-16-2023 Progress note Author Frankie Galindo [facility] April 03, 2023 10:50am Note Date/Time April 03, 2023 1 0:51am [facility] Medical Records Department [address] [place] [address] Progress Note - Hospitalist 04/03/23 1046 MR#: [id number] Acct: [id number] Name: PEDRO PABLO SIERRA Shannan Rep #:[id number] : 1950 72 From: Frankie Galindo MD PCP: Dr. Daija Morton MD Status:ADM I N Location: [place] [address] Reason for Visit Reason for Visit: Diagnoses [...] % (Auto) 63.8, Lymph % (Auto) 22.5, Rapides% (Auto) 7.6, Eos % (Auto) 3.9, Baso [...] for PT OT eval and social worker clinical to assist with discharge planning 3. Chronic [...] documentation, 36minutes. Charges/Coding Visit Charges Inpatient E&M: 51176 Subs Hosp L2 04/03/23 1050 <Electronically signed by Frankie Galindo MD> Cosigner Signature (if applicable): CC: ~ Signed [facility] Work Phone: [phone]) 908-510310-15-2023 Progress note Author Frankie Galindo [facility] April 02, 2023 9:12am Note Date/Time April 02, 2023 7 :35am [facility] Medical Records Department [address] [place] [address] Progress Note - Hospitalist 04/02/23 0735 MR#: [id number] Acct: [id number] Name: PEDRO PABLO SIERRA Rep #:[id number] : 1950 72 From: Frankie Galindo MD PCP: Dr. Daija Morton MD Status:ADM I N Location: [place] [address] Reason for Visit Reason for Visit: Diagnoses [...] % (Auto) 58.6, Lymph % (Auto) 23.5, Rapides % (Auto) 11.2 H, Eos % (Auto) [...] for PT OT eval and social worker clinical to assist with discharge planning 3. Chronic [...] Cosigner Signature (if applicable): CC: ~ Signed [facility] Work Phone: 1(702) 202-570110-15-2023 Progress note Author Fran Cartwright [facility] April 02, 2023 6:53am Note Date/Time April 02, 2023 6 :53am [facility] Medical Records Department [address] [place] [address] Progress Note 04/02/23 0652 MR#: [id number] Acct: [id number] Name: PEDRO PABLO SIERRA R Rep #:[id number] : 1950 72 From: Fran Cartwright MD PCP: Dr. Daija Morton MD Status:ADM I N Location: [place] [address] Progress Note Urine culture returned positive for ESBL E. coli. E. coli is however sensitive to Zosyn in vitro. Cannot be certain whether E. coli will be sensitive in vivo. Zosyn discontinued. Started on Merrem, adjusted for creatinine clearance. 04/02/23652 <Electronically signed by Fran Cartwright MD> Fran Cartwright MD Cosigner Signature (if applicable): CC: ~ Signed [facility] Work Phone: 1([phone]) 905-695910-14-2023 Progress note Author Frankie Lenolyndsey [facility] April 01, 2023 10:02am Note Date/Time April 01, 2023 7 :53am [facility] Medical Records Department [address] [place] [address] Progress Note - Hospitalist 04/01/23 0751 MR#: [id number] Acct: [id number] Name: MARIELAPEDRO PABLO Pierce Rep #:[id number] : 1950 72 From: Frankie Galindo MD PCP: Dr. Daija Morton MD Status:ADM I N Location: [place] [address] Reason for Visit Reason for Visit: Diagnoses [...] (Auto) 70.2 H, Lymph % (Auto) 15.3 L,Rapides % (Auto) 11.0 H, Eos % (Auto) [...] for PT OT eval and social worker clinical to assist with discharge planning 3. Chronic [...] tamsulosin and finasteride 10. DVT prophylaxis ? [place] Lovenox Time spent in the patient's overall evaluation,decision-making process, review of diagnostic data, adjustment of management, discussion with other providers, nursing nursing and ancillary staff involved in patient's care documentation, 36minutes. Charges/Coding Visit Charges Inpatient E&M: 07416 Subs Hosp L2 04/01/23 1002 <Electronically signed by Frankie Galindo MD> Cosigner Signature (if applicable): CC: ~ Signed [facility] Work Phone: [phone]) 710-907810-13-2023 Progress note Author Celia Toribio [facility] March 31, 2023 11:24am Note Date/Time March 31, 2023 7 :18am [facility] Medical Records Department [address] [place] [address] Progress Note - Hospitalist 03/31/23711 MR#: [id number] Acct: [id number] Name: PEDRO PABLO SIERRA Rep #:[id number] : 1950 72 From: Celia Toribio MD PCP: Dr. Daija Morton MD Status:ADM I N Location: [place] [address] Reason for Visit Reason for Visit: Diagnoses [...] 79.2 H, Lymph % (Auto) 9.3 L, Rapides % (Auto) 10.5 H, Eos % (Auto) [...] Sl. Cloudy, Urine pH 6.0, Ur Specific Ballwin 1.020, Urine Protein 100 H, Urine Glucose [...] 17:14 EDT Reading Location ID and State: [facility] / [place] , Service support [...] documentation, 36minutes. Charges/Coding Visit Charges Inpatient E&M: 21062 Subs Hosp L2 03/31/23 1124 <Electronically signed by Celia Toribio MD> Cosigner Signature (if applicable): CC: ~ Signed [facility] Work Phone: 1([phone]) 880-979810-12-2023 Discharge summary Author Huber Alvarado [facility] March 30, 2023 8:31pm Note Date/Time March 30, 2023 3 :51pm [facility] Medical Records Department [address] [place] [address] Emergency Department Summary 03/30/23 MR#: [id number] Acct: [id number] Name: PEDRO PABLO SIERRA Shannan Rep #:[id number] : 1950 72 From: Huber Alvarado MD PCP: Dr. Daija Morton MD Status:ADM I N Location: MS3 ZR867-5 HPI History of Present Illness Chief Complaint: [...] thinks it is just due to pain. [facility] Medical History (Updated 03/30/23 @ 20:31 by [...] 79.2 H Lymph % (Auto) 9.3 L Rapides % (Auto) 10.5 H Eos % (Auto) [...] Sl. Cloudy Urine pH 6.0 Ur Specific Ballwin 1.020 Urine Protein 100 H Urine Glucose [...] 17:14 EDT Reading Location ID and State: [employer] / [place] , Service support , Shoulder [...] changes. No acute ST elevation or depression. HI interval, QRS duration and QTc are normal. Discharge Plan Dx/Rx/DC Orders Clinical Impression: Compression fracture of thoracic vertebra, Multiple falls, Acute UTI, Inabilityto walk Disposition Disposition: Acute Care Hospital [facility] What to do if you have Problems For any increased pain, shortness of breath, bleeding, nausea or vomiting, chestpain, or any unexpected problems, contact your Primary Care Provider. Call [facility] ([phone]) or report to the closest Emergency Room. Call 911 if necessary. 03/30/232030 <Electronically signed by Huber Alvarado MD> Cosigner Signature (if applicable): CC: Dr. Daija Morton MD ~ Signed [facility] Work Phone: 1(350) 324-605810-12-2023 History and physical note Author Fran Cartwright [facility] March 30, 2023 8:08pm Note Date/Time March 30, 2023 7 :32pm [facility] Medical Records Department [address] [place] [address] H&P Exam - Hospitalist 03/30/231931 MR#: [id number] Acct: [id number] Name: PEDRO PABLO SIERRA Rep #:[id number] : 1950 72 From: Fran Cartwright MD PCP: Dr. Daija Morton MD Status:ADM I N Location: MS3 YA836-5 HPI - General General Date of Admission: [...] patient has a burning sensation with urination. [facility] Medical History (Updated 03/30/23 @ 20:04 by [...] 79.2 H, Lymph % (Auto) 9.3 L, Rapides % (Auto) 10.5 H, Eos % (Auto) [...] Sl. Cloudy, Urine pH 6.0, Ur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 femoral endarterectomy with patch, US guided access RCFA, L profundaplasty, RUFUS recanalization & stenting, CRISPIN stenting on 10/23/13 for aorto-occlusive critical limb ischemia - S/p 11/12-11/19/13 [facility] Vascular Surgery for aortoiliac thrombosis [...] of this encounter (statuses as of 10/07/2021) [facility]2020 History of Past illness Narrative* Problem [...] Neurotoin BID at home Patient started on [place] postoperatively, pain controlled at time of discharge. Ischemia of extremity 10/14/2013 02/10/2014 Overview: - admitted to [facility] vascular surgery twice in October 2013, s/p left femoral endarterectomy with patch, US guided access RCFA, L profundaplasty, RUFUS recanalization & stenting, CRISPIN stenting on 10/23/13 for aorto-occlusive critical limb ischemia - S/p 11/12-11/19/13 [facility] Vascular Surgery for aortoiliac thrombosis [...] of this encounter (statuses as of 10/08/2021) [facility] History of Past illness Narrative* Problem [...] Neurotoin BID at home Patient started on [place] postoperatively, pain controlled at time of discharge. Ischemia of extremity 10/14/2013 02/10/2014 Overview: - admitted to [facility] vascular surgery twice in October 2013, s/p left femoral endarterectomy with patch, US guided access RCFA, L profundaplasty, RUFUS recanalization & stenting, CIRSPIN stenting on 10/23/13 for aorto-occlusive critical limb ischemia - S/p 11/12-11/19/13 [facility] Vascular Surgery for aortoiliac thrombosis [...] of this encounter (statuses as of 10/13/2021) [facility]2020 History of Past illness Narrative* Problem [...] Neurotoin BID at home Patient started on [place] postoperatively, pain controlled at time of discharge. [...] of this encounter (statuses as of 10/13/2021) [facility] History of Past illness Narrative* Problem [...] Neurotoin BID at home Patient started on [place] postoperatively, pain controlled at time of discharge. Ischemia of extremity 10/14/2013 02/10/2014 Overview: - admitted to [facility] vascular surgery twice in October [...] of this encounter (statuses as of 10/14/2021) [facility]2020 History of Past illness Narrative* Problem [...] Neurotoin BID at home Patient started on [place] postoperatively, pain controlled at time of discharge. Ischemia of extremity 10/14/2013 02/10/2014 Overview: - admitted to [facility] vascular surgery twice in October 2013, s/p left femoral endarterectomy with patch, US guided access RCFA, L profundaplasty, RUFUS recanalization & stenting, CRISPIN stenting on 10/23/13 for aorto-occlusive critical limb ischemia - S/p 11/12-11/19/13 [facility] Vascular Surgery for aortoiliac thrombosis [...] of this encounter (statuses as of 10/18/2021) [facility] History of Past illness Narrative* Problem [...] Neurotoin BID at home Patient started on [place] postoperatively, pain controlled at time of discharge. Ischemia of extremity 10/14/2013 02/10/2014 Overview: - admitted to [facility] vascular surgery twice in October 2013, s/p left femoral endarterectomy with patch, US guided access RCFA, L profundaplasty, RUFUS recanalization & stenting, CRISPIN stenting on 10/23/13 for aorto-occlusive critical limb ischemia - S/p 11/12-11/19/13 [facility] Vascular Surgery for aortoiliac thrombosis [...] of this encounter (statuses as of 10/21/2021) [facility] History of Past illness Narrative* Problem [...] Neurotoin BID at home Patient started on [place] postoperatively, pain controlled at time of discharge. Ischemia of extremity 10/14/2013 02/10/2014 Overview: - admitted to [facility] vascular surgery twice in October 2013, s/p left femoral endarterectomy with patch, US guided access RCFA, L profundaplasty, RUFUS recanalization & stenting, CRISPIN stenting on 10/23/13 for aorto-occlusive critical limb ischemia - S/p 11/12-11/19/13 [facility] Vascular Surgery for aortoiliac thrombosis [...] of this encounter (statuses as of 10/21/2021) [facility]2020 History of Past illness Narrative* Problem [...] Neurotoin BID at home Patient started on [place] postoperatively, pain controlled at time of discharge. Ischemia of extremity 10/14/2013 02/10/2014 Overview: - admitted to [facility] vascular surgery twice in October 2013, s/p left femoral endarterectomy with patch, US guided access RCFA, L profundaplasty, RUFUS recanalization & stenting, CRISPIN stenting on 10/23/13 for aorto-occlusive critical limb ischemia - S/p 11/12-11/19/13 [facility] Vascular Surgery for aortoiliac thrombosis [...] of this encounter (statuses as of 10/22/2021) [facility] History of Past illness Narrative* Problem [...] Neurotoin BID at home Patient started on [place] postoperatively, pain controlled at time of discharge. Ischemia of extremity 10/14/2013 02/10/2014 Overview: - admitted to [facility] vascular surgery twice in October 2013, s/p left femoral endarterectomy with patch, US guided access RCFA, L profundaplasty, RUFUS recanalization & stenting, CRISPIN stenting on 10/23/13 for aorto-occlusive critical limb ischemia - S/p 11/12-11/19/13 [facility] Vascular Surgery for aortoiliac thrombosis [...] of this encounter (statuses as of 10/22/2021) [facility]2020 History of Past illness Narrative* Problem [...] Neurotoin BID at home Patient started on [place] postoperatively, pain controlled at time of discharge. Ischemia of extremity 10/14/2013 02/10/2014 Overview: - admitted to [facility] vascular surgery twice in October 2013, s/p left femoral endarterectomy with patch, US guided access RCFA, L profundaplasty, RUFUS recanalization & stenting, CRISPIN stenting on 10/23/13 for aorto-occlusive critical limb ischemia - S/p 11/12-11/19/13 [facility] Vascular Surgery for aortoiliac thrombosis [...] of this encounter (statuses as of 10/22/2021) [facility]2020 History of Past illness Narrative* Problem [...] Neurotoin BID at home Patient started on [place] postoperatively, pain controlled at time of discharge. Ischemia of extremity 10/14/2013 02/10/2014 Overview: - admitted to [facility] vascular surgery twice in October 2013, s/p left femoral endarterectomy with patch, US guided access RCFA, L profundaplasty, RUFUS recanalization & stenting, CRISPIN stenting on 10/23/13 for aorto-occlusive critical limb ischemia - S/p 11/12-11/19/13 [facility] Vascular Surgery for aortoiliac thrombosis [...] of this encounter (statuses as of 10/27/2021) [facility] History of Past illness Narrative* Problem [...] Neurotoin BID at home Patient started on [place] postoperatively, pain controlled at time of discharge. Ischemia of extremity 10/14/2013 02/10/2014 Overview: - admitted to [facility] vascular surgery twice in October 2013, s/p left femoral endarterectomy with patch, US guided access RCFA, L profundaplasty, RUFUS recanalization & stenting, CRISPIN stenting on 10/23/13 for aorto-occlusive critical limb ischemia - S/p 11/12-11/19/13 [facility] Vascular Surgery for aortoiliac thrombosis [...] of this encounter (statuses as of 11/08/2021) [facility] History of Past illness Narrative* Problem [...] Neurotoin BID at home Patient started on [place] postoperatively, pain controlled at time of discharge. Ischemia of extremity 10/14/2013 02/10/2014 Overview: - admitted to [facility] vascular surgery twice in October 2013, s/p left femoral endarterectomy with patch, US guided access RCFA, L profundaplasty, RUFUS recanalization & stenting, CRISPIN stenting on 10/23/13 for aorto-occlusive critical limb ischemia - S/p 11/12-11/19/13 [facility] Vascular Surgery for aortoiliac thrombosis [...] of this encounter (statuses as of 11/08/2021) [facility]2020 History of Past illness Narrative* Problem [...] Neurotoin BID at home Patient started on [place] postoperatively, pain controlled at time of discharge. Ischemia of extremity 10/14/2013 02/10/2014 Overview: - admitted to [facility] vascular surgery twice in October 2013, s/p left femoral endarterectomy with patch, US guided access RCFA, L profundaplasty, RUFUS recanalization & stenting, CRISPIN stenting on 10/23/13 for aorto-occlusive critical limb ischemia - S/p 11/12-11/19/13 [facility] Vascular Surgery for aortoiliac thrombosis [...] of this encounter (statuses as of 11/11/2021) [facility]2020 History of Past illness Narrative* Problem [...] Neurotoin BID at home Patient started on [place] postoperatively, pain controlled at time of discharge. Ischemia of extremity 10/14/2013 02/10/2014 Overview: - admitted to [facility] vascular surgery twice in October 2013, s/p left femoral endarterectomy with patch, US guided access RCFA, L profundaplasty, RUFUS recanalization & stenting, CRISPIN stenting on 10/23/13 for aorto-occlusive critical limb ischemia - S/p 11/12-11/19/13 [facility] Vascular Surgery for aortoiliac thrombosis [...] of this encounter (statuses as of 11/12/2021) [facility] History of Past illness Narrative* Problem [...] Neurotoin BID at home Patient started on [place] postoperatively, pain controlled at time of discharge. Ischemia of extremity 10/14/2013 02/10/2014 Overview: - admitted to [facility] vascular surgery twice in October 2013, s/p left femoral endarterectomy with patch, US guided access RCFA, L profundaplasty, RUFUS recanalization & stenting, CRISPIN stenting on 10/23/13 for aorto-occlusive critical limb ischemia - S/p 11/12-11/19/13 [facility] Vascular Surgery for aortoiliac thrombosis [...] of this encounter (statuses as of 11/16/2021) [facility] History of Past illness Narrative* Problem [...] Neurotoin BID at home Patient started on [place] postoperatively, pain controlled at time of discharge. Ischemia of extremity 10/14/2013 02/10/2014 Overview: - admitted to [facility] vascular surgery twice in October 2013, s/p left femoral endarterectomy with patch, US guided access RCFA, L profundaplasty, RUFUS recanalization & stenting, CRISPIN stenting on 10/23/13 for aorto-occlusive critical limb ischemia - S/p 11/12-11/19/13 [facility] Vascular Surgery for aortoiliac thrombosis [...] of this encounter (statuses as of 11/17/2021) [facility] History of Past illness Narrative* Problem [...] Neurotoin BID at home Patient started on [place] postoperatively, pain controlled at time of discharge. Ischemia of extremity 10/14/2013 02/10/2014 Overview: - admitted to [facility] vascular surgery twice in October 2013, s/p left femoral endarterectomy with patch, US guided access RCFA, L profundaplasty, RUFUS recanalization & stenting, CRISPIN stenting on 10/23/13 for aorto-occlusive critical limb ischemia - S/p 11/12-11/19/13 [facility] Vascular Surgery for aortoiliac thrombosis [...] of this encounter (statuses as of 11/17/2021) [facility] History of Past illness Narrative* Problem [...] Neurotoin BID at home Patient started on [place] postoperatively, pain controlled at time of discharge. Ischemia of extremity 10/14/2013 02/10/2014 Overview: - admitted to [facility] vascular surgery twice in October 2013, s/p left femoral endarterectomy with patch, US guided access RCFA, L profundaplasty, RUFUS recanalization & stenting, CRISPIN stenting on 10/23/13 for aorto-occlusive critical limb ischemia - S/p 11/12-11/19/13 [facility] Vascular Surgery for aortoiliac thrombosis [...] of this encounter (statuses as of 11/18/2021) [facility] History of Past illness Narrative* Problem [...] Neurotoin BID at home Patient started on [place] postoperatively, pain controlled at time of discharge. Ischemia of extremity 10/14/2013 02/10/2014 Overview: - admitted to [facility] vascular surgery twice in October 2013, s/p left femoral endarterectomy with patch, US guided access RCFA, L profundaplasty, RUFUS recanalization & stenting, CRISPIN stenting on 10/23/13 for aorto-occlusive critical limb ischemia - S/p 11/12-11/19/13 [facility] Vascular Surgery for aortoiliac thrombosis [...] of this encounter (statuses as of 11/19/2021) [facility] History of Past illness Narrative* Problem [...] Neurotoin BID at home Patient started on [place] postoperatively, pain controlled at time of discharge. Ischemia of extremity 10/14/2013 02/10/2014 Overview: - admitted to [facility] vascular surgery twice in October 2013, s/p left femoral endarterectomy with patch, US guided access RCFA, L profundaplasty, RUFUS recanalization & stenting, CRISPIN stenting on 10/23/13 for aorto-occlusive critical limb ischemia - S/p 11/12-11/19/13 [facility] Vascular Surgery for aortoiliac thrombosis [...] of this encounter (statuses as of 11/19/2021) [facility] History of Past illness Narrative* Problem [...] Neurotoin BID at home Patient started on [place] postoperatively, pain controlled at time of discharge. Ischemia of extremity 10/14/2013 02/10/2014 Overview: - admitted to [facility] vascular surgery twice in October 2013, s/p left femoral endarterectomy with patch, US guided access RCFA, L profundaplasty, RUFUS recanalization & stenting, CRISPIN stenting on 10/23/13 for aorto-occlusive critical limb ischemia - S/p 11/12-11/19/13 [facility] Vascular Surgery for aortoiliac thrombosis [...] of this encounter (statuses as of 11/26/2021) [facility] History of Past illness Narrative* Problem [...] Neurotoin BID at home Patient started on [place] postoperatively, pain controlled at time of discharge. Ischemia of extremity 10/14/2013 02/10/2014 Overview: - admitted to [facility] vascular surgery twice in October 2013, s/p left femoral endarterectomy with patch, US guided access RCFA, L profundaplasty, RUFUS recanalization & stenting, CRISPIN stenting on 10/23/13 for aorto-occlusive critical limb ischemia - S/p 11/12-11/19/13 [facility] Vascular Surgery for aortoiliac thrombosis [...] of this encounter (statuses as of 11/30/2021) [facility] History of Past illness Narrative* Problem [...] Neurotoin BID at home Patient started on [place] postoperatively, pain controlled at time of discharge. Ischemia of extremity 10/14/2013 02/10/2014 Overview: - admitted to [facility] vascular surgery twice in October 2013, s/p left femoral endarterectomy with patch, US guided access RCFA, L profundaplasty, RUFUS recanalization & stenting, CRISPIN stenting on 10/23/13 for aorto-occlusive critical limb ischemia - S/p 11/12-11/19/13 [facility] Vascular Surgery for aortoiliac thrombosis [...] of this encounter (statuses as of 12/03/2021) [facility] History of Past illness Narrative* Problem [...] Neurotoin BID at home Patient started on [place] postoperatively, pain controlled at time of discharge. Ischemia of extremity 10/14/2013 02/10/2014 Overview: - admitted to [facility] vascular surgery twice in October 2013, s/p left femoral endarterectomy with patch, US guided access RCFA, L profundaplasty, RUFUS recanalization & stenting, CRISPIN stenting on 10/23/13 for aorto-occlusive critical limb ischemia - S/p 11/12-11/19/13 [facility] Vascular Surgery for aortoiliac thrombosis [...] of this encounter (statuses as of 12/07/2021) [facility] History of Past illness Narrative* Problem [...] Neurotoin BID at home Patient started on [place] postoperatively, pain controlled at time of discharge. Ischemia of extremity 10/14/2013 02/10/2014 Overview: - admitted to [facility] vascular surgery twice in October 2013, s/p left femoral endarterectomy with patch, US guided access RCFA, L profundaplasty, RUFUS recanalization & stenting, CRISPIN stenting on 10/23/13 for aorto-occlusive critical limb ischemia - S/p 11/12-11/19/13 [facility] Vascular Surgery for aortoiliac thrombosis [...] of this encounter (statuses as of 01/14/2022) [facility] History of Past illness Narrative* Problem [...] Neurotoin BID at home Patient started on [place] postoperatively, pain controlled at time of discharge. Ischemia of extremity 10/14/2013 02/10/2014 Overview: - admitted to [facility] vascular surgery twice in October 2013, s/p left femoral endarterectomy with patch, US guided access RCFA, L profundaplasty, RUFUS recanalization & stenting, CRISPIN stenting on 10/23/13 for aorto-occlusive critical limb ischemia - S/p 11/12-11/19/13 [facility] Vascular Surgery for aortoiliac thrombosis [...] of this encounter (statuses as of 01/14/2022) [facility] History of Past illness Narrative* Problem [...] Neurotoin BID at home Patient started on [place] postoperatively, pain controlled at time of discharge. Ischemia of extremity 10/14/2013 02/10/2014 Overview: - admitted to [facility] vascular surgery twice in October 2013, s/p left femoral endarterectomy with patch, US guided access RCFA, L profundaplasty, RUFUS recanalization & stenting, CRISPIN stenting on 10/23/13 for aorto-occlusive critical limb ischemia - S/p 11/12-11/19/13 [facility] Vascular Surgery for aortoiliac thrombosis [...] of this encounter (statuses as of 01/25/2022) [facility] History of Past illness Narrative* Problem [...] Neurotoin BID at home Patient started on [place] postoperatively, pain controlled at time of discharge. Ischemia of extremity 10/14/2013 02/10/2014 Overview: - admitted to [facility] vascular surgery twice in October 2013, s/p left femoral endarterectomy with patch, US guided access RCFA, L profundaplasty, RUFUS recanalization & stenting, CRISPIN stenting on 10/23/13 for aorto-occlusive critical limb ischemia - S/p 11/12-11/19/13 [facility] Vascular Surgery for aortoiliac thrombosis [...] of this encounter (statuses as of 01/28/2022) [facility]04-24-2020 History of Past illness Narrative* Problem [...] Neurotoin BID at home Patient started on [place] postoperatively, pain controlled at time of discharge. Ischemia of extremity 10/14/2013 02/10/2014 Overview: - admitted to [facility] vascular surgery twice in October 2013, s/p left femoral endarterectomy with patch, US guided access RCFA, L profundaplasty, RUFUS recanalization & stenting, CRISPIN stenting on 10/23/13 for aorto-occlusive critical limb ischemia - S/p 11/12-11/19/13 [facility] Vascular Surgery for aortoiliac thrombosis [...] of this encounter (statuses as of 01/31/2022) [facility]2020 History of Past illness Narrative* Problem [...] Neurotoin BID at home Patient started on [place] postoperatively, pain controlled at time of discharge. Ischemia of extremity 10/14/2013 02/10/2014 Overview: - admitted to [facility] vascular surgery twice in October 2013, s/p left femoral endarterectomy with patch, US guided access RCFA, L profundaplasty, RUFUS recanalization & stenting, CRISPIN stenting on 10/23/13 for aorto-occlusive critical limb ischemia - S/p 11/12-11/19/13 [facility] Vascular Surgery for aortoiliac thrombosis [...] of this encounter (statuses as of 01/31/2022) [facility]2020 History of Past illness Narrative* Problem [...] Neurotoin BID at home Patient started on [place] postoperatively, pain controlled at time of discharge. Ischemia of extremity 10/14/2013 02/10/2014 Overview: - admitted to [facility] vascular surgery twice in October 2013, s/p left femoral endarterectomy with patch, US guided access RCFA, L profundaplasty, RUFUS recanalization & stenting, CRISPIN stenting on 10/23/13 for aorto-occlusive critical limb ischemia - S/p 11/12-11/19/13 [facility] Vascular Surgery for aortoiliac thrombosis [...] of this encounter (statuses as of 01/31/2022) [facility] History of Past illness Narrative* Problem [...] Neurotoin BID at home Patient started on [place] postoperatively, pain controlled at time of discharge. Ischemia of extremity 10/14/2013 02/10/2014 Overview: - admitted to [facility] vascular surgery twice in October 2013, s/p left femoral endarterectomy with patch, US guided access RCFA, L profundaplasty, RUFUS recanalization & stenting, CRISPIN stenting on 10/23/13 for aorto-occlusive critical limb ischemia - S/p 11/12-11/19/13 [facility] Vascular Surgery for aortoiliac thrombosis [...] of this encounter (statuses as of 02/03/2022) [facility] History of Past illness Narrative* Problem [...] Neurotoin BID at home Patient started on [place] postoperatively, pain controlled at time of discharge. Ischemia of extremity 10/14/2013 02/10/2014 Overview: - admitted to [facility] vascular surgery twice in October [...] of this encounter (statuses as of 02/24/2022) [facility] History of Past illness Narrative* Problem [...] Neurotoin BID at home Patient started on [place] postoperatively, pain controlled at time of discharge. Ischemia of extremity 10/14/2013 02/10/2014 Overview: - admitted to [facility] vascular surgery twice in October [...] of this encounter (statuses as of 02/24/2022) [facility] History of Past illness Narrative* Problem [...] Neurotoin BID at home Patient started on [place] postoperatively, pain controlled at time of discharge. Ischemia of extremity 10/14/2013 02/10/2014 Overview: - admitted to [facility] vascular surgery twice in October [...] of this encounter (statuses as of 03/02/2022) [facility] History of Past illness Narrative* Problem [...] Neurotoin BID at home Patient started on [place] postoperatively, pain controlled at time of discharge. Ischemia of extremity 10/14/2013 02/10/2014 Overview: - admitted to [facility] vascular surgery twice in October [...] of this encounter (statuses as of 03/10/2022) [facility] History of Past illness Narrative* Problem [...] Neurotoin BID at home Patient started on [place] postoperatively, pain controlled at time of discharge. Ischemia of extremity 10/14/2013 02/10/2014 Overview: - admitted to [facility] vascular surgery twice in October 2013, s/p left femoral endarterectomy with patch, US guided access RCFA, L profundaplasty, RUFUS recanalization & stenting, CRISPIN stenting on 10/23/13 for aorto-occlusive critical limb ischemia - S/p 11/12-11/19/13 [facility] Vascular Surgery for aortoiliac thrombosis [...] of this encounter (statuses as of 03/10/2022) [facility] History of Past illness Narrative* Problem [...] Neurotoin BID at home Patient started on [place] postoperatively, pain controlled at time of discharge. Ischemia of extremity 10/14/2013 02/10/2014 Overview: - admitted to [facility] vascular surgery twice in October 2013, s/p left femoral endarterectomy with patch, US guided access RCFA, L profundaplasty, RUFUS recanalization & stenting, CRISPIN stenting on 10/23/13 for aorto-occlusive critical limb ischemia - S/p 11/12-11/19/13 [facility] Vascular Surgery for aortoiliac thrombosis [...] of this encounter (statuses as of 03/11/2022) [facility] History of Past illness Narrative* Problem [...] Neurotoin BID at home Patient started on [place] postoperatively, pain controlled at time of discharge. Ischemia of extremity 10/14/2013 02/10/2014 Overview: - admitted to [facility] vascular surgery twice in October 2013, s/p left femoral endarterectomy with patch, US guided access RCFA, L profundaplasty, RUFUS recanalization & stenting, CRISPIN stenting on 10/23/13 for aorto-occlusive critical limb ischemia - S/p 11/12-11/19/13 [facility] Vascular Surgery for aortoiliac thrombosis [...] of this encounter (statuses as of 03/11/2022) [facility] History of Past illness Narrative* Problem [...] Neurotoin BID at home Patient started on [place] postoperatively, pain controlled at time of discharge. Ischemia of extremity 10/14/2013 02/10/2014 Overview: - admitted to [facility] vascular surgery twice in October 2013, s/p left femoral endarterectomy with patch, US guided access RCFA, L profundaplasty, RUFUS recanalization & stenting, CRISPIN stenting on 10/23/13 for aorto-occlusive critical limb ischemia - S/p 11/12-11/19/13 [facility] Vascular Surgery for aortoiliac thrombosis [...] of this encounter (statuses as of 03/18/2022) [facility] History of Past illness Narrative* Problem [...] Neurotoin BID at home Patient started on [place] postoperatively, pain controlled at time of discharge. Ischemia of extremity 10/14/2013 02/10/2014 Overview: - admitted to [facility] vascular surgery twice in October 2013, s/p left femoral endarterectomy with patch, US guided access RCFA, L profundaplasty, RUFUS recanalization & stenting, CRISPIN stenting on 10/23/13 for aorto-occlusive critical limb ischemia - S/p 11/12-11/19/13 [facility] Vascular Surgery for aortoiliac thrombosis [...] of this encounter (statuses as of 03/24/2022) [facility] History of Past illness Narrative* Problem [...] Neurotoin BID at home Patient started on [place] postoperatively, pain controlled at time of discharge. Ischemia of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 unspecified BPH with obstruction/lower urinary tract symptoms Hypertrophy of prostate with urinary obstruction and other lower urinary tract symptoms (LUTS) Mixed hyperlipidemia Gastroesophageal reflux disease, unspecified whether esophagitis present [facility]* Diagnosis COPD (chronic obstructive pulmonary disease) (HCC)- Primary Chronic airway obstruction, not elsewhere classified Urinary retention with incomplete bladder emptying Incomplete bladder emptying Anticoagulation goal of INR 2 to 3 Encounter for therapeutic drug monitoring PVD (peripheral vascular disease) ([facility]) Peripheral vascular disease, unspecified Encounter to establish care Other reasons for seeking consultation GI bleeding- Primary Acute posthemorrhagic anemia Lupus anticoagulant disorder (HCC) Primary hypercoagulable state Dysuria- Primary GI bleeding Acute posthemorrhagic anemia Lupus anticoagulant disorder ([facility]) Primary hypercoagulable state PVD (peripheral vascular disease) ([facility]) Peripheral vascular disease, unspecified IBD (inflammatory [...] pain Backache, unspecified PVD (peripheral vascular disease) ([facility])- Primary Peripheral vascular disease, unspecified COPD (chronic obstructive pulmonary disease) ([facility]) Chronic airway obstruction, not elsewhere classified [...] in stool COPD (chronic obstructive pulmonary disease) ([facility]) Chronic airway obstruction, not elsewhere classified Dark urine Other nonspecific finding on examination of urine Hospital discharge follow-up- Primary Other follow-up examination Hypertension Unspecified essential hypertension Hematoma, postoperative Hematoma complicating a procedure s/p left femoral endarterectomy/aortoiliac stenting 10/2013 Peripheral vascular disease, unspecified COPD (chronic obstructive pulmonary disease) ([facility]) Chronic airway obstruction, not elsewhere classified Melena Blood in stool Depression Depressive disorder, not elsewhere classified COPD (chronic obstructive pulmonary disease) ([facility])- Primary Chronic airway obstruction, not elsewhere [...] Coronary atherosclerosis of unspecified type of vessel, shawnee or graft PVD (peripheral vascular disease) ([facility]) Peripheral vascular disease, unspecified Melena Blood in stool Depression Depressive disorder, not elsewhere classified Anticoagulation goal of INR 2 to 3- Primary Encounter for therapeutic drug monitoring PVD (peripheral vascular disease) ([facility]) Peripheral vascular disease, unspecified Hospital discharge follow-up Other follow-up examination Melena- Primary Blood in stool Essential hypertension Unspecified essential hypertension Tobacco use disorder Anxiety and depression Dysthymic disorder Essential hypertension- Primary Unspecified essential hypertension Smoker Tobacco use disorder Anxiety and depression Dysthymic disorder PVD (peripheral vascular disease) ([facility])- Primary Peripheral vascular disease, unspecified Tobacco use disorder Pain in left shoulder Pain in joint, shoulder region Lupus anticoagulant disorder (HCC) Primary hypercoagulable state Pulmonary emphysema, unspecified emphysema type ([facility]) Need for vaccination Need for prophylactic vaccination and inoculation against unspecified single disease Pre-operative examination- Primary Preoperative examination, unspecified PVD (peripheral vascular disease) ([facility]) Peripheral vascular disease, unspecified Coronary artery disease, angina presence unspecified, unspecified vessel or lesion type, unspecified whether shawnee or transplanted heart Mixed hyperlipidemia Essential hypertension [...] bronchitis without exacerbation [facility] Diagnosis COPD (chronic obstructive pulmonary [...] pain Backache, unspecified PVD (peripheral vascular disease) ([facility])- Primary Peripheral vascular disease, unspecified COPD [...] in stool COPD (chronic obstructive pulmonary disease) ([facility]) Chronic airway obstruction, not elsewhere classified Dark urine Other nonspecific finding on examination of urine Hospital discharge follow-up- Primary Other follow-up examination Hypertension Unspecified essential hypertension Hematoma, postoperative Hematoma complicating a procedure s/p left femoral endarterectomy/aortoiliac stenting 10/2013 Peripheral vascular disease, unspecified COPD (chronic obstructive pulmonary disease) ([facility]) Chronic airway obstruction, not elsewhere classified Melena Blood in stool Depression Depressive disorder, not elsewhere classified COPD (chronic obstructive pulmonary disease) ([facility])- Primary Chronic airway obstruction, not elsewhere [...] Coronary atherosclerosis of unspecified type of vessel, shawnee or graft PVD (peripheral vascular disease) ([facility]) Peripheral vascular disease, unspecified Melena Blood in stool Depression Depressive disorder, not elsewhere classified Anticoagulation goal of INR 2 to 3- Primary Encounter for therapeutic drug monitoring PVD (peripheral vascular disease) ([facility]) Peripheral vascular disease, unspecified Hospital discharge follow-up Other follow-up examination Melena- Primary Blood in stool Essential hypertension Unspecified essential hypertension Tobacco use disorder Anxiety and depression Dysthymic disorder Essential hypertension- Primary Unspecified essential hypertension Smoker Tobacco use disorder Anxiety and depression Dysthymic disorder PVD (peripheral vascular disease) ([facility])- Primary Peripheral vascular disease, unspecified Tobacco use disorder Pain in left shoulder Pain in joint, shoulder region Lupus anticoagulant disorder ([facility]) Primary hypercoagulable state Pulmonary emphysema, unspecified emphysema type ([facility]) Need for vaccination Need for prophylactic vaccination and inoculation against unspecified single disease Pre-operative examination- Primary Preoperative examination, unspecified PVD (peripheral vascular disease) ([facility]) Peripheral vascular disease, unspecified Coronary artery disease, angina presence unspecified, unspecified vessel or lesion type, unspecified whether shawnee or transplanted heart Mixed hyperlipidemia Essential hypertension Unspecified essential hypertension Pulmonary emphysema, unspecified emphysema type ([facility]) PJ (obstructive sleep apnea) Obstructive sleep apnea (adult) (pediatric) IBD (inflammatory bowel disease) Other and unspecified noninfectious gastroenteritis and colitis Gastroesophageal reflux disease, esophagitis presence not specified Urinary retention with incomplete bladder emptying Incomplete bladder emptying Anemia due to acute blood loss Acute posthemorrhagic anemia Lupus anticoagulant disorder ([facility]) Primary hypercoagulable state Chronic bilateral low back pain without sciatica Anxiety and depression Dysthymic disorder Illiterate Educational circumstance Left leg pain Pain in limb [facility] Diagnosis COPD (chronic obstructive pulmonary disease) ([facility])- Primary Chronic airway obstruction, not elsewhere classified Urinary retention with incomplete bladder emptying Incomplete bladder emptying Anticoagulation goal of INR 2 to 3 Encounter for therapeutic drug monitoring PVD (peripheral vascular disease) ([facility]) Peripheral vascular disease, unspecified Encounter to establish care Other reasons for seeking consultation GI bleeding- Primary Acute posthemorrhagic anemia Lupus anticoagulant disorder ([facility]) Primary hypercoagulable state Dysuria- Primary GI bleeding Acute posthemorrhagic anemia Lupus anticoagulant disorder ([facility]) Primary hypercoagulable state PVD (peripheral vascular disease) ([facility]) Peripheral vascular disease, unspecified IBD (inflammatory bowel disease) Other and unspecified noninfectious gastroenteritis and colitis Blurring of vision Other specified visual disturbances Anticoagulation goal of INR 2 to 3 Encounter for therapeutic drug monitoring Hypertension Unspecified essential hypertension s/p left femoral endarterectomy/aortoiliac stenting 10/2013 Peripheral vascular disease, unspecified Elevated glucose Other abnormal glucose COPD (chronic obstructive pulmonary disease) ([facility]) Chronic airway obstruction, not elsewhere classified Back pain Backache, unspecified PVD (peripheral vascular disease) ([facility])- Primary Peripheral vascular disease, unspecified COPD (chronic obstructive pulmonary disease) ([facility]) Chronic airway obstruction, not elsewhere classified Anticoagulation goal of INR 2 to 3 Encounter for therapeutic drug monitoring Anemia due to acute blood loss Acute posthemorrhagic anemia Hypertension Unspecified essential hypertension Hyperlipidemia Other and unspecified hyperlipidemia Tobacco use disorder Ulcerative colitis (HCC)- Primary Ulcerative colitis, unspecified PVD (peripheral vascular disease) ([facility]) Peripheral vascular disease, unspecified Lupus anticoagulant disorder ([facility]) Primary hypercoagulable state Tobacco use disorder Melena Blood in stool COPD (chronic obstructive pulmonary disease) ([facility]) Chronic airway obstruction, not elsewhere classified Dark urine Other nonspecific finding on examination of urine Hospital discharge follow-up- Primary Other follow-up examination Hypertension Unspecified essential hypertension Hematoma, postoperative Hematoma complicating a procedure s/p left femoral endarterectomy/aortoiliac stenting 10/2013 Peripheral vascular disease, unspecified COPD (chronic obstructive pulmonary disease) ([facility]) Chronic airway obstruction, not elsewhere classified [...] Coronary atherosclerosis of unspecified type of vessel, shawnee or graft PVD (peripheral vascular disease) (HCC) Peripheral vascular disease, unspecified Melena Blood in stool Depression Depressive disorder, not elsewhere classified Anticoagulation goal of INR 2 to 3- Primary Encounter for therapeutic drug monitoring PVD (peripheral vascular disease) ([facility]) Peripheral vascular disease, unspecified Hospital discharge follow-up Other follow-up examination Melena- Primary Blood in stool Essential hypertension Unspecified essential hypertension Tobacco use disorder Anxiety and depression Dysthymic disorder Essential hypertension- Primary Unspecified essential hypertension Smoker Tobacco use disorder Anxiety and depression Dysthymic disorder PVD (peripheral vascular disease) ([facility])- Primary Peripheral vascular disease, unspecified Tobacco use disorder Pain in left shoulder Pain in joint, shoulder region Lupus anticoagulant disorder (HCC) Primary hypercoagulable state Pulmonary emphysema, unspecified emphysema type (HCC) Need for vaccination Need for prophylactic vaccination and inoculation against unspecified single disease Pre-operative examination- Primary Preoperative examination, unspecified PVD (peripheral vascular disease) ([facility]) Peripheral vascular disease, unspecified Coronary artery disease, angina presence unspecified, unspecified vessel or lesion type, unspecified whether shawnee or transplanted heart Mixed hyperlipidemia Essential hypertension [...] hematuria, site unspecified documented [facility] this encounter [facility] Diagnosis Onset Date Resolution Status Admit Date Acute diarrhea acute August 25, 2024 6:12pm Debility acute August 25 6:12pm Weakness acute August 25 6:12pm 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 August 252024 6:12pm [facility] Work Phone: Evaluation note* Diagnosis COPD [...] Coronary atherosclerosis of unspecified type of vessel, shawnee or graft PVD (peripheral vascular disease) Peripheral [...] unspecified vessel or lesion type, unspecified whether shawnee or transplanted heart Mixed hyperlipidemia Essential hypertension [...] and fatigue [facility] Diagnosis COPD (chronic obstructive pulmonary [...] elsewhere classified COPD (chronic obstructive pulmonary disease) ([facility])- Primary Chronic airway obstruction, not elsewhere [...] Coronary atherosclerosis of unspecified type of vessel, shawnee or graft PVD (peripheral vascular disease) Peripheral [...] unspecified vessel or lesion type, unspecified whether shawnee or transplanted heart Mixed hyperlipidemia Essential hypertension [...] Educational circumstance Wheezing documented [facility] encounter [facility] Diagnosis COPD (chronic obstructive pulmonary [...] abnormal glucose COPD (chronic obstructive pulmonary disease) ([facility]) Chronic airway obstruction, not elsewhere classified [...] Peripheral vascular disease, unspecified Lupus anticoagulant disorder ([facility]) Primary hypercoagulable state Tobacco use disorder [...] elsewhere classified COPD (chronic obstructive pulmonary disease) ([facility])- Primary Chronic airway obstruction, not elsewhere [...] Coronary atherosclerosis of unspecified type of vessel, shawnee or graft PVD (peripheral vascular disease) Peripheral [...] unspecified vessel or lesion type, unspecified whether shawnee or transplanted heart Mixed hyperlipidemia Essential hypertension [...] on supplemental oxygen [facility] Diagnosis COPD (chronic obstructive pulmonary [...] Coronary atherosclerosis of unspecified type of vessel, shawnee or graft PVD (peripheral vascular disease) Peripheral [...] unspecified vessel or lesion type, unspecified whether shawnee or transplanted heart Mixed hyperlipidemia Essential hypertension [...] Shortness of breath documented in this encounter [facility] Diagnosis COPD (chronic obstructive pulmonary disease) ([facility])- Primary Chronic airway obstruction, not elsewhere [...] Coronary atherosclerosis of unspecified type of vessel, shawnee or graft PVD (peripheral vascular disease) Peripheral [...] unspecified vessel or lesion type, unspecified whether shawnee or transplanted heart Mixed hyperlipidemia Essential hypertension [...] and unspecified hyperlipidemia documented [facility] this encounter [facility] Author Fran Cartwright [facility] March 30, 2023 8:08pm Note Date/Time March 30, 2023 7 :32pm [facility] Medical Records Department [address] [place] [address] H&P Exam - Hospitalist 03/30/231931 MR#: [id number] Acct: [id number] Name: PEDRO PABLO SIERRA Rep #:[id number] : 1950 72 From: Fran Cartwright MD PCP: Dr. Daija Morton MD Status:ADM I N Location: [facility] [id number] HPI - General General Date of Admission: [...] patient has a burning sensation with urination. [facility] Medical History (Updated 03/30/23 @ 20:04 by [...] 79.2 H, Lymph % (Auto) 9.3 L, [place]ides % (Auto) 10.5 H, Eos % (Auto) [...] Sl. Cloudy, Urine pH 6.0, Ur Specific [place] 1.020, Urine Protein 100 H, Urine Glucose [...] documentation, 70minutes. Charges/Coding Visit Charges Inpatient E&M: 03113 Init Hosp L3 03/30/232007 <Electronically signed by Fran Cartwright MD> Cosigner Signature (if applicable): CC: Dr. Daija Morton MD; Dr. Fran Cartwright MD~ Signed [facility] Work Phone: History and physical note Author Андрей Cooley [facility] July 24, 2023 9:10pm Note Date/Time July 24, 2023 9 :10pm [facility] Medical Records Department [address] [place] [address] History & Physical Exam 07/24/232103 MR#: [id number] Acct: [id number] Name: PEDRO PABLO SIERRA Rep #:[id number] : 1950 73 From: Андрей Cooley MD [...] past medical history of recent discharge from custodial for debility and weakness. Patient does also have a history of long-term smoking. Patient denies any chest pain, shortness of breath fevers or chills at present time. He will be admitted for pain control and case management to arrange for [facility] care facility. [facility] Medical History Asthma Atrial fibrillation Chronic pain [...] 74.0 H, Lymph % (Auto) 16.0 L, Rapides % (Auto) 7.3, Eos % (Auto) 1.1, [...] 17:27 EST Reading Location ID and State: [address] [place] [address] Tel , Service support , Assessment & [...] on anticoagulation Charges/Coding Visit Charges Inpatient E&M: 93548 Init Hosp L2 07/24/232109 <Electronically signed by Андрей Cooley MD> Cosigner Signature (if applicable): CC: Dr. Daija Morton MD; Dr. Андрей Cooley MD~ Signed [facility] Work Phone: History and physical note Author Lisha Talamantes [facility] Note Date/Time August 25, 2024 7:00 pm [facility] Medical Records Department [address] [place] [address] H&P Exam - Hospitalist 08/25/24 1820 MR#: [id number] Acct: [id number] Name: PEDRO PABLO SIERRA Rep #:[id number] : 1950 74 From: Lisha Talamantes DO PCP: Dr. Daija Morton MD Status:ADM I NO Location: UT3 [id number] HPI - General General Date of Admission: 08/25/24 Date of Service: 08/25/24 Chief Complaint: Diarrhea/generalized weakness HPI Narrative PEDRO PABLO SIERRA, is a 74 M who presented to the emergency department [facility] on 08/25/2024 with a chief complaint [...] Chest x-ray is unremarkable for acute findings. [facility] Medical History Compression fx, lumbar [...] 78.4 H, Lymph % (Auto) 10.3 L, [place] % (Auto) 9.9, Eos % (Auto) 0.3, [...] need clarified Charges/Coding Visit Charges Inpatient E&M: 78142 Init Hosp L2 08/25/24 1900 <Electronically signed by Lisha Talamantes DO> Cosigner Signature (if applicable): CC: Dr. Daija Morton MD; Dr. Lisha Talamantes DO~ Signed [facility] Work Phone: History and physical note Author Shilpa Contreras [facility] Note Date/Time December 13, 2024 8:50 pm [facility] Medical Records Department [address] [place] [address] H&P Exam - Hospitalist 12/13/241948 MR#: [id number] Acct: [id number] Name: PEDRO PABLO SIERRA Rep #:[id number] : 1950 74 From: Shilpa Contreras MD PCP: Dr. Daija Morton MD Status:ADM I N Location: [place] [address] HPI - General General Date of Admission: [...] PJ, Tobacco use who presents to the [facility] ED on 12/13/2024 with history of [...] component requested ABG and will trial BiPAP. [facility] Medical History Weakness Debility Failure [...] % (Auto) 67.3, Lymph % (Auto) 19.5, Rapides% (Auto) 8.9, Eos % (Auto) 3.0, Baso [...] significant change since last exam. Reading Location: [id number] Assessment & Plan Assessment/Plan (1) COPD exacerbation: [...] PJ, Tobacco use who presents to the [facility] ED on 12/13/2024 with history of [...] 0.9. #16. CODE status: Patient healthcare power patent prosecution attorney and living will are not in [...] 16 minutes. Charges/Coding Visit Charges Inpatient E&M: 25667 Init Hosp L3 Procedures Hospitalists Procedures: 25584 Advncd Care Plan 30 Min 12/13/242049 <Electronically signed by Shilpa Contreras MD> Cosigner Signature (if applicable): CC: Dr. Shilpa Contreras MD; Dr. Daija Morton MD~ Signed [facility] Work Phone: History and physical note Author Frankie Galindo [facility] Note Date/Time January 05, 2025 2:02 pm [facility] Medical Records Department [address] [place] [address] H&P Exam - Hospitalist 01/05/25 1336 MR#: [id number] Acct: [id number] Name: PEDRO PABLO SIERRA Rep #:[id number] : 1950 74 From: Frankie Galindo MD PCP: Dr. Lorraine Mena MD Status:A DM IN Location: [facility] TRS085- 1 HPI - General General Date of Admission: 01/05/25 Date of Service: 01/05/25 Chief Complaint: Suspected PEG tomorrow found HPI Narrative PEDRO PABLO SIERRA, is a 74 M with recent diagnosis of acute left MCA CVA discharged to a [facility] facility. Patient had a PEG tube placed [...] to a monitored bed for further management [facility] Medical History Acute CVA (cerebrovascular [...] 76.7 H, Lymph % (Auto) 14.2 L, [place] % (Auto) 7.0, Eos % (Auto) 1.2, [...] IMPRESSION: COPD. No acute findings. Reading Location: [id number] KUB X-Ray 01/05/25 13:02 IMPRESSION: A PEG tube tip is projected in the region of the stomach. Contrast material is identified within the stomach. There is no extravasation of the contrast. 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 [...] 78 Minutes Charges/Coding Visit Charges Inpatient E&M: 07361 Init Hosp L3 01/05/25 1402 <Electronically signed by Frankie Galindo MD> Cosigner Signature (if applicable): CC: Dr. Frankie Galindo MD; Dr. Lorraine Mena MD~ Signed [facility] Work Phone: [facility] Work Phone: [facility] Work Phone: [facility] Work Phone: [phone] Work Phone: [facility] Phone[facility] Work Phone: Hospital Discharge instructions Additional Instructions Ice to your rib cage. Support your sore ribs with a pillow. Your chest x-ray did not show any broken ribs sometimes however there are small cracks in the ribs we cannot see on the x-ray. [place] for more severe pain. Otherwise use Tylenol. If you are using the pain medication [place] then do not use Tylenol with it. Follow-up with your doctor as needed. Keep the wounds on your forearms clean. Clean daily with soap and water. Patient apply antibiotic ointment. Watch for any signs of infection if seen follow-up.[facility] Work Phone: Hospital Discharge instructions Additional Instructions Please use the walker and follow-up with your primary care doctor.[facility] Work Phone: Progress note No data available for this section [facility] Reason for referral (narrative)* Outpatient Procedure (Routine) - Closed Specialty Diagnoses / Procedures Referred By Morris t Ref[facility] Diagnoses COPD with chronic bronchitis (HCC) Procedures OXIMETRY WITH AMBULATION NONINVASIVE EAR/PULSE OXIMETRY MULTIPLE DETER Emilie Jauregui PA-C [address] [employer] [address] [address] Referral ID Status Reason Start Date Expiration Date V isits Requested Visits Authorized [id number] Closed Auto-Generate d Referral 11/05/2021 06/18/2022 1 1 * Outpatient Procedure (Routine) - Closed Specialty Diagnoses / Procedures Referred By Contchelo t Ref[facility] Diagnoses COPD with chronic bronchitis (HCC) Procedures LUNG DIFFUSION CAPACITY (DLCO) DIFFUSING CAPACITY Emilie Jauregui PA-C [address] [employer] [address] [address] Referral ID Status Reason Start Date Expiration Date V isits Requested Visits Authorized [id number] Closed Auto-Generate d Referral 11/05/2021 06/18/2022 1 1 * Outpatient Procedure (Routine) - Closed Specialty Diagnoses / Procedures Referred By Morris t Referred To [facility] Diagnoses COPD with chronic bronchitis (HCC) Procedures SPIROMETRY BASELINE ONLY SPMTRY W/VC EXPIRATORY BRIAN W/WO MXML VOL VNTJ Emilie Jauregui PA-C [address] [employer] [address] [address] Referral ID Status Reason Start Date Expiration Date V isits Requested Visits Authorized [id number] Closed Auto-Generate d Referral 11/05/2021 06/18/2022 1 1 [facility] for referral (narrative)* Outpatient Procedure (Routine) - Pending Review Specialty Diagnoses / Procedures Referred By Morris t Referred To Contact [facility] Diagnoses Essential hypertension Chest pain, unspecified type Procedures ECG COMPLETE ECG ROUTINE ECG W/LEAST 12 LDS W/I&R Anjel Braga APRN.CNP [address] [place] [address] [facility] [address] [place] [id number] Referral ID Status Reason Start Date Expiration Date Visits Requested Visits Authorized [id number] Pending Review Auto-Generat ed Referral 01/28/2022 01/28/2023 1 1 [facility] for referral (narrative)* Outpatient Procedure (Routine) - Authorized Specialty Diagnoses / Procedures Referred By Contac t Referred To Contact [facility] Diagnoses PVD (peripheral vascular disease) (HCC) Procedures PVR LEG COREY VAS LAB PVR LEG COREY VAS LAB NON-INVASIVE PHYSIOLOGIC STUDY EXTREMITY [address] [place] [address] [place] [address] [address] Referral ID Status Reason Start Date Expiration Date Visits Requested Visits Authorized [id number] Authorized Auto-Generat ed Referral 01/31/2022 01/31/2023 1 1 [facility] for referral (narrative)* Outpatient Procedure (Routine) - Authorized Specialty Diagnoses / Procedures Referred By Contac t Referred To Contact [facility] Diagnoses Peripheral arterial disease (HCC) PVD (peripheral vascular disease) (HCC) Procedures PVR LEG COREY VAS LAB NON-INVASIVE PHYSIOLOGIC STUDY EXTREMITY [address] [place] [address] [place] [address] [place] [place] [address] Referral ID Status Reason Start Date Expiration Date Visits Requested Visits Authorized [id number] Authorized Auto-Generat ed Referral 12/26/2022 12/26/2023 1 1 [facility] for referral (narrative)* Outpatient Procedure (Routine) - Authorized Specialty Diagnoses / Procedures Referred By Contac t Referred To Contact [facility] Diagnoses Peripheral arterial disease (HCC) Procedures PVR LEG COREY VAS LAB NON-INVASIVE PHYSIOLOGIC STUDY EXTREMITY [address] [place] [address] [place] [address] [facility] [address] [facility] [place] [address] Referral ID Status Reason Start Date Expiration Date Visits Requested Visits Authorized [id number] Authorized Auto-Generat ed Referral 01/02/2024 01/01/2025 1 1 [facility] for referral (narrative)No reason for referral information availableWNewark Hospital Work Phone: Summary Purpose Family History [...] FoundDocuments on File Type Date Recorded Patient Iron Melter Expl anation Advance Directive(s) 10/24/2019 3:38 PM [...] Documents on File Type Date Recorded Patient Iron Melter Expl anation Advance Directive(s) 08/29/2021 6:53 PM Advance Directive(s) 08/22/2021 7:53 PM Advance Directive(s) 04/10/2020 4:06 PM Advance Directive(s) 12/17/2019 10:49 AM Advance Directive(s) 10/24/2019 3:38 PM Advance Directive(s) 10/17/2019 9:43 AM Advance Directive(s) 10/08/2019 7:18 AM Advance Directive(s) 09/04/2019 1:38 PM Advance Directive(s) 02/07/2016 12:11 AM Advance Directive Response Recorded Date/ Time Name of Medical Power of Lcsw eloina stephens e- ex August 12, 2021 1:39am Name of Medical Power of Lcsw Joseph Burrell August 18, 2021 11:56pm Advance Directives Yes March 22, 2016 4:03pm Living Will No September 17, 2021 5:48pm Power of Lcsw Yes September 17 5:48pm Advance Directive Response Recorded Date/ Time Name of Medical Power of Lcsw eloina stephens e- ex August 12, 2021 1:39am Name of Medical Power of Lcsw Joseph Burrell August 18, 2021 11:56pm Name of Medical Power of Lcsw joseph burrell September 17, 2021 5:48pm Advance Directives Yes March 22, 2016 4:03pm Living Will No October 08, 2021 2:20pm Power of Lcsw No October 08 2:20pm Documents on File Type Date Recorded Patient Iron Melter Expl anation Advance Directive(s) 08/29/2021 6:53 PM [...] Date/ Time Name of Medical Power of Lcsw eloina stephens e- ex August 12, 2021 1:39am Name of Medical Power of Lcsw Joseph Burrell August 18, 2021 11:56pm Name of Medical Power of Lcsw joseph burrell September 17, 2021 5:48pm Advance Directives Yes March 22, 2016 4:03pm Living Will Yes November 25, 2021 5 :33pm Power of Lcsw Yes November 25, 2021 5:33pm Advance Directive Response Recorded Date/ Time Name of Medical Power of Lcsw eloina stephens e- ex August 12, 2021 1:39am Name of Medical Power of Lcsw Joseph Burrell August 18, 2021 11:56pm Name of Medical Power of Lcsw joseph burrell September 17, 2021 5:48pm Advance Directives Yes March 22, 2016 4:03pm Living Will Yes November 25, 2021 1 1:06pm Power of Lcsw No November 25, 2021 11:06pm Advance Directive Response Recorded Date/ Time Name of Medical Power of Lcsw Joseph Burrell August 18, 2021 11:56pm Name of Medical Power of Lcsw joseph burrell September 17, 2021 5:48pm Name of Medical Power of Lcsw MICHELLE RICHMOND November 25, 2021 5:33pm Advance Directives Yes March 22, 2016 4:03pm Living Will Yes November 25, 2021 1 1:06pm Power of Lcsw No November 25, 2021 11:06pm Advance Directive Response Recorded Date/ Time Name of Medical Power of Lcsw joseph burrell September 17, 2021 5:48pm Name of Medical Power of Lcsw MICHELLEADRIANA REEDON November 25, 2021 5:33pm Advance Directives Yes March 22, 2016 4:03pm Living Will Yes November 25, 2021 1 1:06pm Power of Lcsw No November 25, 2021 11:06pm Advance Directive Response Recorded Date/ Time Name of Medical Power of Lcsw MICHELLE RICHMOND November 25, 2021 5:33pm Advance Directives Yes March 22, 2016 4:03pm Living Will Yes November 25, 2021 1 1:06pm Power of Lcsw No November 25, 2021 11:06pm Advance Directive Response Recorded Date/ Time Name of Medical Power of Lcsw MICHELLE RICHMOND November 25, 2021 5:33pm Name of Medical Power of Lcsw recalled January 28, 2022 3:14pm Advance Directives Yes March 22, 2016 4:03pm Living Will Yes January 28 3:14pm Power of Lcsw Yes January 28 022 3:14pm Documents on File Type Date Recorded Patient Iron Melter Expl anation Advance Directive(s) 10/24/2019 3:38 PM Advance Directive Response Recorded Date/ Time Name of Medical Power of Lcsw MICHELLE RICHMOND November 25, 2021 5:33pm Name of Medical Power of Lcsw recalled January 28, 2022 3:14pm Advance Directives Yes March 22, 2016 4:03pm Living Will Yes March 02, 2022 3:17pm Power of Lcsw No February 3:17pm Advance Directive Response Recorded Date/ Time Name of Medical Power of Lcsw MICHELLE RICHMOND November 25, 2021 5:33pm Name of Medical Power of Lcsw recalled January 28, 2022 3:14pm Advance Directives Yes March 22, 2016 4:03pm Living Will No March 07, 2022 5:26pm Power of Lcsw No February 5:26pm Advance Directive Response Recorded Date/ Time Name of Medical Power of Lcsw MICHELLE RICHMOND November 25, 2021 5:33pm Name of Medical Power of Lcsw recalled January 28, 2022 3:14pm Advance Directives Yes March 22, 2016 4:03pm Living Will No March 08, 2022 8:17pm Power of Lcsw No February 8:17pm Advance Directive Response Recorded Date/ Time Advance Directives Yes March 22, 2016 3:03pm Living Will No March 08, 2022 7:17pm Power of Lcsw No February 7:17pm Advance Directive Response Recorded Date/ Time Advance Directives Yes March 22, 2016 4:03pm Living Will No October 21, 2022 6: 58pm Power of Lcsw No October 21, 2022 6:58pm Latest Code [...] Date/ Time Name of Medical Power of Lcsw JOSEPH Euceda December 31, 2022 3:19pm Advance Directives Yes March 22, 2016 4:03pm Living Will Yes December 31, 2022 3:19pm Power of Lcsw Yes December 31 3:19pm Advance Directive Response Recorded Date/ Time Name of Medical Power of Lcsw JOSEPH Euceda December 31, 2022 3:19pm Name of Medical Power of Lcsw Joseph February 17, 2023 11:06pm Advance Directives Yes March 22, 2016 4:03pm Living Will Yes February 17 11:06pm Power of Lcsw Yes February 17, 2023 11:06pm Advance Directive Response Recorded Date/ Time Name of Medical Power of Lcsw Joseph Burrell March 29, 2023 7:22pm Advance Directives Yes March 22, 2016 4:03pm Living Will No March 30 3:32pm Power of Lcsw No March 30, 2023 3:32pm Name of Medical Power of Lcsw JOSEPH Euceda December 31, 2022 3:19pm Name of Medical Power of Lcsw Joseph February 17, 2023 11:06pm Advance Directive Response Recorded Date/ Time Name of Medical Power of Lcsw Joseph Burrell March 29, 2023 7:22pm Advance Directives Yes March 22, 2016 4:03pm Living Will No March 30 9:04pm Power of Lcsw No March 30, 2023 9:04pm Name of Medical Power of Lcsw JOSEPH BURRELL- E X December 31, 2022 3:19pm Name of Medical Power of Lcsw Joseph February 17, 2023 11:06pm Advance Directive Response Recorded Date/ Time Name of Medical Power of Lcsw Joseph Burrell March 29, 2023 6:22pm Advance Directives Yes March 22, 2016 3:03pm Living Will No March 30 8:04pm Power of Lcsw No March 30, 2023 8:04pm Advance Directive Response Recorded Date/ Time Name of Medical Power of Lcsw Joseph Burrell March 29, 2023 6:22pm Name of Medical Power of Lcsw Joseph Burrell July 24, 2023 5:27pm Advance Directives Yes March 22, 2016 3:03pm Living Will Yes July 24 5:27pm Power of Lcsw Yes July 24, 2023 5:27pm Advance Directive Response Recorded Date/ Time Name of Medical Power of Lcsw Joseph Burrell July 24, 2023 9:55pm Advance Directives Yes March 22, 2016 3:03pm Living Will No July 30, 024 8:34pm Power of Lcsw No July 30, 2023 8:34pm Advance Directive Response Recorded Date/ Time Name of Medical Power of Lcsw Joseph Burrell July 24, 2023 9:55pm Name of Medical Power of Lcsw Nahed Roxy July 31, 2023 12:57am Advance Directives Yes March 22, 2016 3:03pm Living Will No July 31, 024 12:57am Power of Lcsw Yes July 31, 2023 12:57am Date Activated Date Inactivated Comments 08/23/2021 7:55 AM 09/13/2021 7:43 PM Question Answer Comments Full Code Order Discussed With: Patient Date Activated Date Inactivated Comments 10/01/2020 11:51 PM 08/21/2021 11:26 AM Advance Directive Response Recorded Date/ Time Name of Medical Power of Lcsw Joseph Burrell March 29, 2023 6:22pm Advance Directives Yes March 22, 2016 3:03pm Living Will No March 30 8:04pm Power of Lcsw No March 30, 2023 8:04pm Name of Medical Power of Lcsw Joseph February 17, 2023 10:06pm Advance Directive Response Recorded Date/ Time Living Will No August 25, 2024 4:43pm Power of Lcsw No August 25 4:43pm Advance Directives Yes March 22, 2016 4:03pm Advance Directive Response Recorded Date/ Time Living Will No August 25, 2024 7:21pm Power of Lcsw No August 25 7:21pm Advance Directives Yes March 22, 2016 4:03pm Advance Directive Response Recorded Date/ Time Living Will No August 25, 2024 7:21pm Do you have a Healthcare Power of Lcsw? No August 25, 2024 7:21pm Advance Directives Yes March 22, 2016 4:03pm Advance Directive Response Recorded Date/ Time Do you have a Healthcare Power of Lcsw? No December 13, 2024 5:49pm Living Will No August 25, 2024 7:21pm Do you have a Healthcare Power of Lcsw? No August 25, 2024 7:21pm Advance Directives Yes March 22, 2016 4:03pm Advance Directive Response Recorded Date/ Time Do you have a Healthcare Power of Lcsw? Yes December 13, 2024 9:26pm Name of Medical Power of Lcsw Joseph [place] December 13, 2024 9:26pm Living Will No August 25, 2024 7:21pm Do you have a Healthcare Power of Lcsw? No August 25, 2024 7:21pm Advance Directives Yes March 22, 2016 4:03pm Advance Directive Response Recorded Date/ Time Do you have a Healthcare Power of Lcsw? Yes December 13, 2024 9:26pm Name of Medical Power of Lcsw Joseph Burrell December 13, 2024 9:26pm Do you have a Healthcare Power of Lcsw? Yes December 17, 2024 4:23pm Living Will No August 25, 2024 7:21pm Do you have a Healthcare Power of Lcsw? No August 25, 2024 7:21pm Advance Directives Yes March 22, 2016 4:03pm Advance Directive Response Recorded Date/ Time Do you have a Healthcare Power of Lcsw? Yes December 13, 2024 9:26pm Name of Medical Power of Lcsw Joseph Burrell December 13, 2024 9:26pm Do you have a Healthcare Power of Lcsw? Yes December 17, 2024 4:23pm Do you have a Healthcare Power of Lcsw? Yes January 03, 2025 6:26am Advance Directives Yes March 22, 2016 4:03pm Advance Directive Response Recorded Date/ Time Do you have a Healthcare Power of Lcsw? Yes December 13, 2024 9:26pm Name of Medical Power of Lcsw Joseph Burrell December 13, 2024 9:26pm Do you have a Healthcare Power of Lcsw? Yes December 17, 2024 4:23pm Do you have a Healthcare Power of Lcsw? Yes January 03, 2025 6:26am Do you have a Healthcare Power of Lcsw? No January 05, 2025 9:44am Advance Directives Yes March 22, 2016 4:03pm Advance Directive Response Recorded Date/ Time Do you have a Healthcare Power of Lcsw? Yes December 13, 2024 9:26pm Name of Medical Power of Lcsw Joseph Burrell December 13, 2024 9:26pm Do you have a Healthcare Power of Lcsw? Yes December 17, 2024 4:23pm Do you have a Healthcare Power of Lcsw? Yes January 03, 2025 6:26am Do you have a Healthcare Power of Lcsw? No January 05, 2025 2:48pm Advance Directives Yes March 22, 2016 4:03pm Hospital Course Note HNO ID: [id number] Author: Luis Girard Service: Vascular Surgery Author [...] Admitted for a planned redo of left EARLY EDUCATION TEACHER endarterectomy versus bypass, possible fem-fem and or fem-pop bypass, possible stent placement for reoccurrent left EARLY EDUCATION TEACHER disease, thrombosis of the left iliac stents and rest pain. Operations during Hospitalization: 10/08/2019-Left common femoral endarterectomy with bovine patch, redo.Thrombectomy of the occluded Left RADHA and EIA.Left common and external iliac stents (Cast x 2), (Gene (more content not included)... Note HNO ID: [id number] Author: Gabino Oden ([place]) Service: Vascular Surgery Author Type: Physician Special Education Teacher Type: Discharge Summary Filed: 10/25/2019 4:58 PM [...] status post revascularization of left leg. 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 Reason for Hospitalization: pleasant 69-year-old gentleman, who has recently undergone com (more content not included)... Note HNO ID: [id number] Author: Luis lizama (Richi Girard Service: Vascular Surgery Author Type: Nurse Practitioner Type: Discharge Summary Filed: 12/17/2019 5:52 PM Note Text: Attestation signed by Rob Stevens at 12/18/2019 8:07 AM [facility] STAFF PHYSICIAN NOTE OF PERSONAL [...] 1700 12/17/2019 ADMISSION DATE: 12/17/2019 DISCHARGE DISPOSITION: Long Term Facility Discharge Physical Exam: VITAL SIGNS: BP 154/ (more content not included)... Note HNO ID: [id number] Author: Nelson Schuster (Aa) Service: ? Author Type: Foot Cutter Type: Anesthesia Procedure Notes Filed: 10/08/2019 8:38 [...] (more content not included)... Note HNO ID: [id number] Author: Nelson Schuster (Aa) Service: ? Author Type: Foot Cutter Type: Anesthesia Procedure Notes Filed: 10/08/2019 8:38 [...] October 08, 2019 TIME: 8:36 AM CSN: [id number] Note HNO ID: [id number] Author: Nelson Schuster (Aa) Service: ? Author Type: Foot Cutter Type: Anesthesia Procedure Notes Filed: 10/08/2019 8:39 [...] (more content not included)... Note HNO ID: [id number] Author: ANA PAULA Sanchez (Aa) Service: ? Author Type: Foot Cutter Type: Anesthesia Procedure Notes Filed: 10/08/2019 9:16 [...] October 08, 2019 TIME: 9:15 AM CSN: [id number] Note HNO ID: [id number] Author: Gabino lucas (Res) Stephanie Service: Vascular Surgery Author Type: Resident Type: Brief Op Note Filed: 10/08/2019 4:12 PM Note Text: BRIEF OPERATIVE / PROCEDURE NOTE LOG ID: [id number] SURGERY/PROCEDURE DATE: 10/08/2019 INCISION/PROCEDURE START TIME: 8:53 AM INCISION CLOSE/PROCEDURE END TIME: 4:06 PM SURGEON(S)/PROCEDURALIST(S) AND HOD CARRIER(S): Surgeon(s) and Role: * Ryan May MD - Primary * Elly (Binu Brown - Resident - Assisting No Additional Staff SURGERY/PROCEDURE(S): Left common EARLY EDUCATION TEACHER endarterectomy with bovine path Left profundoplasty Left [...] (more content not included)... Note HNO ID: [id number] Author: Destiny Sequeira Service: ? Author Type: [...] (more content not included)... Note HNO ID: [id number] Author: Destiny Sequeira Service: ? Author Type: [...] October 10, 2019 TIME: 9:26 AM CSN: [id number] Note HNO ID: [id number] Author: Huong Gonzalez Service: ? Author Type: Nurse Sustainable Development Policy Analyst Type: Anesthesia Procedure Notes Filed: 10/10/2019 9:36 AM Note Text: ANESTHESIOLOGY PROCEDURE NOTE Airway General Information Procedure Start Time/Medication Administration: 10/10/2019 9:11 AM Patient location during procedure: OR Staffing Anesthesiologist: Joey Sequeira SECURITIES ANALYST: Gini Gonzalez Performed by: EDWIN Indications and [...] (more content not included)... Note HNO ID: [id number] Author: Gabino lucas ([facility]) Stephanie Service: Vascular Surgery Author Type: Resident Type: Brief Op Note Filed: 10/10/2019 2:08 PM Note Text: BRIEF OPERATIVE / PROCEDURE NOTE LOG ID: [id number] Surgery/Procedure Date: 10/10/2019 Incision/Procedure Start Time: 9:52 AM Incision Close/Procedure End Time: 1:49 PM Surgeon(s)/Proceduralist(s) and Special Education Teacher(s): Surgeon(s) and Role: * Ryan May MD - Primary * Elly ([facility]) Stephanie - Resident - Assisting No Additional Staff Procedure(s): Washout of left groin Left iliac, common femoral and profunda thrombectomy Left ilio-femoral ringed PTFE interposition graft (end-to-side) L iliofemoral stent extraction Multiple angiograms Anesthesia: General ASA Class: Findings: L iliac in-stent thrombosis, L EARLY EDUCATION TEACHER thrombosis, L profunda thrombosis Fresh hematoma, evacuated Likely external compression of L inguinal ligament onto L ileofemoral stent causing thrombosis Good 3 vessel runoff on completion angio Skin closed with vertic (more content not included)... Note HNO ID: [id number] Author: Nelson Locke Service: ? Author Type: Nurse Sustainable Development Policy Analyst Type: Anesthesia Procedure Notes Filed: 10/18/2019 1:06 [...] October 18, 2019 TIME: 1:05 PM CSN: [id number] Note HNO ID: [id number] Author: Nelson Locke Service: ? 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 Note HNO ID: [id number] Author: Veronika Tompkins MD Service: Vascular Surgery Author Type: Resident Type: Brief Op Note Filed: 10/18/2019 3:40 PM Note Text: BRIEF OPERATIVE / PROCEDURE NOTE LOG ID: [id number] Surgery/Procedure Date: 10/18/2019 Incision/Procedure Start Time: 1:31 PM Incision Close/Procedure End Time: 3:10 PM Surgeon(s)/Proceduralist(s) and Special Education Teacher(s): Surgeon(s) and Role: * Lesly Salvador - [...] (more content not included)... Note HNO ID: [id number] Author: Luis Girard Service: Vascular Surgery Author Type: Nurse Practitioner Type: Procedures Filed: 10/21/2019 12:34 PM Note Text: BEDSIDE PROCEDURE NOTE PROCEDURE DATE: October 21, 2019 PROCEDURE START TIME: 1100 PRIMARY PROCEDURALIST: Roman Girard (KISHORE) HOD CARRIER(S): Juliana LOPEZ) Dr. Lopez at bedside to [...] (more content not included)... Note HNO ID: [id number] Author: Luis Girard Service: Vascular Surgery Author Type: Nurse Practitioner Type: Procedures Filed: 10/23/2019 3:38 PM Note Text: BEDSIDE PROCEDURE NOTE PROCEDURE DATE: October 23, 2019 PROCEDURE START TIME: 1400 PRIMARY PROCEDURALIST: Roman Girard (KISHORE) HOD CARRIER(S): Juliana LOPEZ) PROCEDURE: NEGATIVE PRESSURE WOUND THERAPY [...] not included)... Procedure Findings Note HNO ID: [id number] Author: Nelson Schuster (Aa) Service: ? Author Type: Foot Cutter Type: Anesthesia Procedure Notes Filed: 10/08/2019 8:38 [...] (more content not included)... Note HNO ID: [id number] Author: Nelson Schuster (Aa) Service: ? Author Type: Foot Cutter Type: Anesthesia Procedure Notes Filed: 10/08/2019 8:38 [...] October 08, 2019 TIME: 8:36 AM CSN: [id number] Note HNO ID: [id number] Author: Nelson Schuster (Aa) Service: ? Author Type: Foot Cutter Type: Anesthesia Procedure Notes Filed: 10/08/2019 8:39 [...] (more content not included)... Note HNO ID: [id number] Author: Luis Naidu) ANA PAULA Alejandro Service: ? Author Type: Foot Cutter Type: Anesthesia Procedure Notes Filed: 10/08/2019 9:16 [...] October 08, 2019 TIME: 9:15 AM CSN: [id number] Note HNO ID: [id number] Author: Gabino lucas (Azalea) Stephanie Service: Vascular Surgery Author Type: Resident Type: Brief Op Note Filed: 10/08/2019 4:12 PM Note Text: BRIEF OPERATIVE / PROCEDURE NOTE LOG ID: [id number] SURGERY/PROCEDURE DATE: 10/08/2019 INCISION/PROCEDURE START TIME: 8:53 AM INCISION CLOSE/PROCEDURE END TIME: 4:06 PM SURGEON(S)/PROCEDURALIST(S) AND HOD CARRIER(S): Surgeon(s) and Role: * Ryan May MD - Primary * Elly (Azalea) Stephanie - Resident - Assisting No Additional Staff SURGERY/PROCEDURE(S): Left common EARLY EDUCATION TEACHER endarterectomy with bovine path Left profundoplasty Left [...] (more content not included)... Note HNO ID: [id number] Author: Destiny Sequeira Service: ? Author Type: [...] (more content not included)... Note HNO ID: [id number] Author: Destiny Sequeira Service: ? Author Type: [...] October 10, 2019 TIME: 9:26 AM CSN: [id number] Note HNO ID: [id number] Author: Huong NessMilking Machine Technician) Carlos Service: ? Author Type: Nurse Sustainable Development Policy Analyst Type: Anesthesia Procedure Notes Filed: 10/10/2019 9:36 AM Note Text: ANESTHESIOLOGY PROCEDURE NOTE Airway General Information Procedure Start Time/Medication Administration: 10/10/2019 9:11 AM Patient location during procedure: OR Staffing Anesthesiologist: Joey Sequeira SECURITIES ANALYST: Gini Gonzalez Performed by: SECURITIES ANALYST Indications and Patient Condition Preoxygenated: yes Patient [...] (more content not included)... Note HNO ID: [id number] Author: Gabino lucas (Res) Stephanie Service: Vascular Surgery Author Type: Resident Type: Brief Op Note Filed: 10/10/2019 2:08 PM Note Text: BRIEF OPERATIVE / PROCEDURE NOTE LOG ID: [id number] Surgery/Procedure Date: 10/10/2019 Incision/Procedure Start Time: 9:52 AM Incision Close/Procedure End Time: 1:49 PM Surgeon(s)/Proceduralist(s) and Special Education Teacher(s): Surgeon(s) and Role: * Ryan May MD - Primary * Elly (Res) Stephanie - Resident - Assisting No Additional Staff Procedure(s): Washout of left groin Left iliac, common femoral and profunda thrombectomy Left ilio-femoral ringed PTFE interposition graft (end-to-side) L iliofemoral stent extraction Multiple angiograms Anesthesia: General ASA Class: Findings: L iliac in-stent thrombosis, L EARLY EDUCATION TEACHER thrombosis, L profunda thrombosis Fresh hematoma, evacuated Likely external compression of L inguinal ligament onto L ileofemoral stent causing thrombosis Good 3 vessel runoff on completion angio Skin closed with vertic (more content not included)... Note HNO ID: [id number] Author: Nelson Locke Service: ? Author Type: Nurse Sustainable Development Policy Analyst Type: Anesthesia Procedure Notes Filed: 10/18/2019 1:06 [...] October 18, 2019 TIME: 1:05 PM CSN: [id number] Note HNO ID: [id number] Author: Nelson Locke Service: ? 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 Note HNO ID: [id number] Author: Veronika pressley (Binu Tompkins MD Service: Vascular Surgery Author Type: Resident Type: Brief Op Note Filed: 10/18/2019 3:40 PM Note Text: BRIEF OPERATIVE / PROCEDURE NOTE LOG ID: [id number] Surgery/Procedure Date: 10/18/2019 Incision/Procedure Start Time: 1:31 PM Incision Close/Procedure End Time: 3:10 PM Surgeon(s)/Proceduralist(s) and Special Education Teacher(s): Surgeon(s) and Role: * Lesly Salvador - [...] (more content not included)... Note HNO ID: [id number] Author: Luis Richey) Era Service: Vascular Surgery Author Type: Nurse Practitioner Type: Procedures Filed: 10/21/2019 12:34 PM Note Text: BEDSIDE PROCEDURE NOTE PROCEDURE DATE: October 21, 2019 PROCEDURE START TIME: 1100 PRIMARY PROCEDURALIST: Roman Girard (CHARLES.LAMIN) HOD CARRIER(S): Juliana Oden (HOWIE) Dr. Lopez at bedside [...] (more content not included)... Note HNO ID: [id number] Author: Luis Ricehy) Era Service: Vascular Surgery Author Type: Nurse Practitioner Type: Procedures Filed: 10/23/2019 3:38 PM Note Text: BEDSIDE PROCEDURE NOTE PROCEDURE DATE: October 23, 2019 PROCEDURE START TIME: 1400 PRIMARY PROCEDURALIST: Roman Girard (MUNICIPAL FIREFIGHTER.SPECIALIST ICU) HOD CARRIER(S): Juliana JESUS-Edilma) PROCEDURE: NEGATIVE PRESSURE WOUND THERAPY [...] Date LABOWRK October 16, 2024 5:0 0am CUSTODIAL [...] Date LABOWRK October 16, 2024 5:0 0am CUSTODIAL [...] Date LABOWRK October 16, 2024 5:0 0am CUSTODIAL [...] Date LABOWRK October 16, 2024 5:0 0am CUSTODIAL [...] Date LABOWRK October 16, 2024 5:0 0am CUSTODIAL [...] Date LABOWRK October 16, 2024 5:0 0am CUSTODIAL [...] January 23, 2025 10:27am Current use of alf anticoagulation January 23, 2025 10:27am CVA (cerebral vascular accident) January 23, 2025 10:27am Debility January 23, 2025 10: 27am History of atrial fibrillation January 10:27am Seizure disorder January 23, 2025 10: 27am Multiple falls January 23, 2025 10: 27am Chief Complaint Admit Date LABOWRK October 16, 2024 5:0 0am CUSTODIAL [...] Date LABOWRK October 16, 2024 5:0 0am CUSTODIAL [...] 2025 10: 27am Chief Complaint Admit Date CUSTODIAL LAB WORK November 05, 2024 5:0 [...] throat Smoking Procedures CONSULT TO ENT OFFICE/OUTPATIENT REPLACED BY [facility] MDM 60 MINUTES Rebekah Luu PA-C [address] [place] [address] Referral ID Status Reason Start Date Expiration Date Visits Requested Visits Authorized [id number] Authorized PCP Requested Referral 11/21/2023 11/20/2024 1 1 Specialty Diagnoses / Procedures Referred By Morris dixon Referred To Contact Diagnoses COPD with chronic bronchitis (HCC) Rebekah Luu PA-C [address] [place] [address] Referral ID Status Reason Start Date Expiration Date Visits Re quested Visits Authorized [id number] Closed 1 1 Specialty Diagnoses / Procedures Referred By Contac t Referred To Contact Marquita Braga APRN.SPECIALIST ICU [address] [place] [address] Referral ID Status Reason Start Date Expiration Date V isits Requested Visits Authorized [id number] Authorized 08/29/2022 06/18/2023 1 1 Specialty Diagnoses / Procedures Referred By Contac t Referred To Contact Harriett Albert APRN.MEDIA TECHNICIAN [address] [place] [address] Referral ID Status Reason Start Date Expiration Date Visits Re quested Visits Authorized [id number] Closed 1 1 Specialty Diagnoses / Procedures Referred By Contac t Referred To Contact Gastroenterology Diagnoses Acute blood loss anemia Angiodysplasia of colon with hemorrhage Procedures CONSULT TO GASTROENTEROLOGY OFFICE/OUTPATIENT [facility] 60-74 MINUTES Harriett Albert, CHARLES.MEDIA TECHNICIAN [address] [place] [address] Referral ID Status Reason Start Date Expiration Date Visits Requested Visits Authorized [id number] Pending Review PCP Requested Referral 01/14/2022 01/14/2023 1 1 Specialty Diagnoses / Procedures Referred By Contac t Referred To Contact Anjel Braga APRN.SPECIALIST ICU [address] [place] [address] Referral ID Status Reason Start Date Expiration Date Visits Re quested Visits Authorized [id number] Closed 1 1 Medications Administered Section Administered [...] section and content) DATE CREATED AUTHOR 01/09/2020 [facility] DATE CREATED AUTHOR AUTHOR'S ORGANIZ ATION 04/03/2020 [facility] DATE CREATED AUTHOR AUTHOR'S ORGANIZ ATION 04/11/2020 [facility] DATE CREATED AUTHOR AUTHOR'S ORGANIZ ATION 01/26/2022 [facility] DATE CREATED AUTHOR AUTHOR'S ORGANIZ ATION 07/16/2023 [facility] ([place]) DATE CREATED AUTHOR AUTHOR'S ORGANIZ ATION 03/23/2025 [facility] DATE CREATED AUTHOR AUTHOR'S ORGANIZ ATION 04/13/[address] [facility] DATE CREATED AUTHOR AUTHOR'S ORGANIZ ATION 04/29/2025 [facility] Source Comments (unrecognize d section and content) In the event this informatio n is protected by the Federal Confidentiality of Alcohol and Drug Abuse Patient Records regulations: The Federal rules restrict any use of the information to criminally investigate or prosecute any alcohol or drug abuse patient.[facility] the event this information is protected by the Federal Confidentiality of Alcohol and Drug Abuse Patient Records regulations: The Federal rules restrict any use of the information to criminally investigate or prosecute any alcohol or drug abuse patient.[facility] HospitalIn the event this information is protected by the Federal Confidentiality of Alcohol and Drug Abuse Patient Records regulations: The Federal rules restrict any use of the information to criminally investigate or prosecute any alcohol or drug abuse patient.[facility] HospitalIn the event this information is protected by the Federal Confidentiality of Alcohol and Drug Abuse Patient Records regulations: The Federal rules restrict any use of the information to criminally investigate or prosecute any alcohol or drug abuse patient.[facility] HospitalIn the event this information is protected by the Federal Confidentiality of Alcohol and Drug Abuse Patient Records regulations: The Federal rules restrict any use of the information to criminally investigate or prosecute any alcohol or drug abuse patient.[facility] HospitalIn the event this information is protected by the Federal Confidentiality of Alcohol and Drug Abuse Patient Records regulations: The Federal rules restrict any use of the information to criminally investigate or prosecute any alcohol or drug abuse patient.[facility] HospitalIn the event this information is protected by the Federal Confidentiality of Alcohol and Drug Abuse Patient Records regulations: The Federal rules restrict any use of the information to criminally investigate or prosecute any alcohol or drug abuse patient.[facility] HospitalIn the event this information is protected by the Federal Confidentiality of Alcohol and Drug Abuse Patient Records regulations: The Federal rules restrict any use of the information to criminally investigate or prosecute any alcohol or drug abuse patient.[facility] HospitalIn the event this information is protected by the Federal Confidentiality of Alcohol and Drug Abuse Patient Records regulations: The Federal rules restrict any use of the information to criminally investigate or prosecute any alcohol or drug abuse patient.[facility] HospitalIn the event this information is protected by the Federal Confidentiality of Alcohol and Drug Abuse Patient Records regulations: The Federal rules restrict any use of the information to criminally investigate or prosecute any alcohol or drug abuse patient.[facility] HospitalIn the event this information is protected by the Federal Confidentiality of Alcohol and Drug Abuse Patient Records regulations: The Federal rules restrict any use of the information to criminally investigate or prosecute any alcohol or drug abuse patient.[facility] HospitalIn the event this information is protected by the Federal Confidentiality of Alcohol and Drug Abuse Patient Records regulations: The Federal rules restrict any use of the information to criminally investigate or prosecute any alcohol or drug abuse patient.[facility] HospitalIn the event this information is protected by the Federal Confidentiality of Alcohol and Drug Abuse Patient Records regulations: The Federal rules restrict any use of the information to criminally investigate or prosecute any alcohol or drug abuse patient.[facility] HospitalIn the event this information is protected by the Federal Confidentiality of Alcohol and Drug Abuse Patient Records regulations: The Federal rules restrict any use of the information to criminally investigate or prosecute any alcohol or drug abuse patient.[facility] HospitalIn the event this information is protected by the Federal Confidentiality of Alcohol and Drug Abuse Patient Records regulations: The Federal rules restrict any use of the information to criminally investigate or prosecute any alcohol or drug abuse patient.[facility] HospitalIn the event this information is protected by the Federal Confidentiality of Alcohol and Drug Abuse Patient Records regulations: The Federal rules restrict any use of the information to criminally investigate or prosecute any alcohol or drug abuse patient.[facility] HospitalIn the event this information is protected by the Federal Confidentiality of Alcohol and Drug Abuse Patient Records regulations: The Federal rules restrict any use of the information to criminally investigate or prosecute any alcohol or drug abuse patient.[facility] HospitalIn the event this information is protected by the Federal Confidentiality of Alcohol and Drug Abuse Patient Records regulations: The Federal rules restrict any use of the information to criminally investigate or prosecute any alcohol or drug abuse patient.[facility] HospitalIn the event this information is protected by the Federal Confidentiality of Alcohol and Drug Abuse Patient Records regulations: The Federal rules restrict any use of the information to criminally investigate or prosecute any alcohol or drug abuse patient.[facility] HospitalIn the event this information is protected by the Federal Confidentiality of Alcohol and Drug Abuse Patient Records regulations: The Federal rules restrict any use of the information to criminally investigate or prosecute any alcohol or drug abuse patient.[facility] HospitalIn the event this information is protected by the Federal Confidentiality of Alcohol and Drug Abuse Patient Records regulations: The Federal rules restrict any use of the information to criminally investigate or prosecute any alcohol or drug abuse patient.[facility] HospitalIn the event this information is protected by the Federal Confidentiality of Alcohol and Drug Abuse Patient Records regulations: The Federal rules restrict any use of the information to criminally investigate or prosecute any alcohol or drug abuse patient.[facility] HospitalIn the event this information is protected by the Federal Confidentiality of Alcohol and Drug Abuse Patient Records regulations: The Federal rules restrict any use of the information to criminally investigate or prosecute any alcohol or drug abuse patient.[facility]In the event this information is protected by the Federal Confidentiality of Alcohol and Drug Abuse Patient Records regulations: The Federal rules restrict any use of the information to criminally investigate or prosecute any alcohol or drug abuse patient.[facility] HospitalIn the event this information is protected by the Federal Confidentiality of Alcohol and Drug Abuse Patient Records regulations: The Federal rules restrict any use of the information to criminally investigate or prosecute any alcohol or drug abuse patient.[facility] HospitalIn the event this information is protected by the Federal Confidentiality of Alcohol and Drug Abuse Patient Records regulations: The Federal rules restrict any use of the information to criminally investigate or prosecute any alcohol or drug abuse patient.[facility] HospitalIn the event this information is protected by the Federal Confidentiality of Alcohol and Drug Abuse Patient Records regulations: The Federal rules restrict any use of the information to criminally investigate or prosecute any alcohol or drug abuse patient.[facility] HospitalIn the event this information is protected by the Federal Confidentiality of Alcohol and Drug Abuse Patient Records regulations: The Federal rules restrict any use of the information to criminally investigate or prosecute any alcohol or drug abuse patient.[facility] HospitalIn the event this information is protected by the Federal Confidentiality of Alcohol and Drug Abuse Patient Records regulations: The Federal rules restrict any use of the information to criminally investigate or prosecute any alcohol or drug abuse patient.[facility] HospitalIn the event this information is protected by the Federal Confidentiality of Alcohol and Drug Abuse Patient Records regulations: The Federal rules restrict any use of the information to criminally investigate or prosecute any alcohol or drug abuse patient.[facility] HospitalIn the event this information is protected by the Federal Confidentiality of Alcohol and Drug Abuse Patient Records regulations: The Federal rules restrict any use of the information to criminally investigate or prosecute any alcohol or drug abuse patient.[facility] HospitalIn the event this information is protected by the Federal Confidentiality of Alcohol and Drug Abuse Patient Records regulations: The Federal rules restrict any use of the information to criminally investigate or prosecute any alcohol or drug abuse patient.[facility] HospitalIn the event this information is protected by the Federal Confidentiality of Alcohol and Drug Abuse Patient Records regulations: The Federal rules restrict any use of the information to criminally investigate or prosecute any alcohol or drug abuse patient.[facility] HospitalIn the event this information is protected by the Federal Confidentiality of Alcohol and Drug Abuse Patient Records regulations: The Federal rules restrict any use of the information to criminally investigate or prosecute any alcohol or drug abuse patient.[facility] HospitalIn the event this information is protected by the Federal Confidentiality of Alcohol and Drug Abuse Patient Records regulations: The Federal rules restrict any use of the information to criminally investigate or prosecute any alcohol or drug abuse patient.[facility] HospitalIn the event this information is protected by the Federal Confidentiality of Alcohol and Drug Abuse Patient Records regulations: The Federal rules restrict any use of the information to criminally investigate or prosecute any alcohol or drug abuse patient.[facility] HospitalIn the event this information is protected by the Federal Confidentiality of Alcohol and Drug Abuse Patient Records regulations: The Federal rules restrict any use of the information to criminally investigate or prosecute any alcohol or drug abuse patient.[facility] HospitalIn the event this information is protected by the Federal Confidentiality of Alcohol and Drug Abuse Patient Records regulations: The Federal rules restrict any use of the information to criminally investigate or prosecute any alcohol or drug abuse patient.[facility] HospitalIn the event this information is protected by the Federal Confidentiality of Alcohol and Drug Abuse Patient Records regulations: The Federal rules restrict any use of the information to criminally investigate or prosecute any alcohol or drug abuse patient.[facility] HospitalIn the event this information is protected by the Federal Confidentiality of Alcohol and Drug Abuse Patient Records regulations: The Federal rules restrict any use of the information to criminally investigate or prosecute any alcohol or drug abuse patient.[facility] HospitalIn the event this information is protected by the Federal Confidentiality of Alcohol and Drug Abuse Patient Records regulations: The Federal rules restrict any use of the information to criminally investigate or prosecute any alcohol or drug abuse patient.[facility] HospitalIn the event this information is protected by the Federal Confidentiality of Alcohol and Drug Abuse Patient Records regulations: The Federal rules restrict any use of the information to criminally investigate or prosecute any alcohol or drug abuse patient.[facility] HospitalIn the event this information is protected by the Federal Confidentiality of Alcohol and Drug Abuse Patient Records regulations: The Federal rules restrict any use of the information to criminally investigate or prosecute any alcohol or drug abuse patient.[facility] HospitalIn the event this information is protected by the Federal Confidentiality of Alcohol and Drug Abuse Patient Records regulations: The Federal rules restrict any use of the information to criminally investigate or prosecute any alcohol or drug abuse patient.[facility] HospitalIn the event this information is protected by the Federal Confidentiality of Alcohol and Drug Abuse Patient Records regulations: The Federal rules restrict any use of the information to criminally investigate or prosecute any alcohol or drug abuse patient.[facility] HospitalIn the event this information is protected by the Federal Confidentiality of Alcohol and Drug Abuse Patient Records regulations: The Federal rules restrict any use of the information to criminally investigate or prosecute any alcohol or drug abuse patient.[facility] HospitalIn the event this information is protected by the Federal Confidentiality of Alcohol and Drug Abuse Patient Records regulations: The Federal rules restrict any use of the information to criminally investigate or prosecute any alcohol or drug abuse patient.[facility] HospitalIn the event this information is protected by the Federal Confidentiality of Alcohol and Drug Abuse Patient Records regulations: The Federal rules restrict any use of the information to criminally investigate or prosecute any alcohol or drug abuse patient.[facility] HospitalIn the event this information is protected by the Federal Confidentiality of Alcohol and Drug Abuse Patient Records regulations: The Federal rules restrict any use of the information to criminally investigate or prosecute any alcohol or drug abuse patient.[facility] HospitalIn the event this information is protected by the Federal Confidentiality of Alcohol and Drug Abuse Patient Records regulations: The Federal rules restrict any use of the information to criminally investigate or prosecute any alcohol or drug abuse patient.[facility] HospitalIn the event this information is protected by the Federal Confidentiality of Alcohol and Drug Abuse Patient Records regulations: The Federal rules restrict any use of the information to criminally investigate or prosecute any alcohol or drug abuse patient.[facility] HospitalIn the event this information is protected by the Federal Confidentiality of Alcohol and Drug Abuse Patient Records regulations: The Federal rules restrict any use of the information to criminally investigate or prosecute any alcohol or drug abuse patient.[facility] HospitalIn the event this information is protected by the Federal Confidentiality of Alcohol and Drug Abuse Patient Records regulations: The Federal rules restrict any use of the information to criminally investigate or prosecute any alcohol or drug abuse patient.[facility] HospitalIn the event this information is protected by the Federal Confidentiality of Alcohol and Drug Abuse Patient Records regulations: The Federal rules restrict any use of the information to criminally investigate or prosecute any alcohol or drug abuse patient.[facility] HospitalIn the event this information is protected by the Federal Confidentiality of Alcohol and Drug Abuse Patient Records regulations: The Federal rules restrict any use of the information to criminally investigate or prosecute any alcohol or drug abuse patient.[facility] HospitalIn the event this information is protected by the Federal Confidentiality of Alcohol and Drug Abuse Patient Records regulations: The Federal rules restrict any use of the information to criminally investigate or prosecute any alcohol or drug abuse patient.[facility] HospitalIn the event this information is protected by the Federal Confidentiality of Alcohol and Drug Abuse Patient Records regulations: The Federal rules restrict any use of the information to criminally investigate or prosecute any alcohol or drug abuse patient.[facility] HospitalIn the event this information is protected by the Federal Confidentiality of Alcohol and Drug Abuse Patient Records regulations: The Federal rules restrict any use of the information to criminally investigate or prosecute any alcohol or drug abuse patient.[facility] HospitalIn the event this information is protected by the Federal Confidentiality of Alcohol and Drug Abuse Patient Records regulations: The Federal rules restrict any use of the information to criminally investigate or prosecute any alcohol or drug abuse patient.[facility] HospitalIn the event this information is protected by the Federal Confidentiality of Alcohol and Drug Abuse Patient Records regulations: The Federal rules restrict any use of the information to criminally investigate or prosecute any alcohol or drug abuse patient.[facility] HospitalIn the event this information is protected by the Federal Confidentiality of Alcohol and Drug Abuse Patient Records regulations: The Federal rules restrict any use of the information to criminally investigate or prosecute any alcohol or drug abuse patient.[facility] HospitalIn the event this information is protected by the Federal Confidentiality of Alcohol and Drug Abuse Patient Records regulations: The Federal rules restrict any use of the information to criminally investigate or prosecute any alcohol or drug abuse patient.[facility] HospitalIn the event this information is protected by the Federal Confidentiality of Alcohol and Drug Abuse Patient Records regulations: The Federal rules restrict any use of the information to criminally investigate or prosecute any alcohol or drug abuse patient.[facility] HospitalIn the event this information is protected by the Federal Confidentiality of Alcohol and Drug Abuse Patient Records regulations: The Federal rules restrict any use of the information to criminally investigate or prosecute any alcohol or drug abuse patient.[facility] HospitalIn the event this information is protected by the Federal Confidentiality of Alcohol and Drug Abuse Patient Records regulations: The Federal rules restrict any use of the information to criminally investigate or prosecute any alcohol or drug abuse patient.[facility] HospitalIn the event this information is protected by the Federal Confidentiality of Alcohol and Drug Abuse Patient Records regulations: The Federal rules restrict any use of the information to criminally investigate or prosecute any alcohol or drug abuse patient.[facility] HospitalIn the event this information is protected by the Federal Confidentiality of Alcohol and Drug Abuse Patient Records regulations: The Federal rules restrict any use of the information to criminally investigate or prosecute any alcohol or drug abuse patient.[facility] HospitalIn the event this information is protected by the Federal Confidentiality of Alcohol and Drug Abuse Patient Records regulations: The Federal rules restrict any use of the information to criminally investigate or prosecute any alcohol or drug abuse patient.[facility] HospitalIn the event this information is protected by the Federal Confidentiality of Alcohol and Drug Abuse Patient Records regulations: The Federal rules restrict any use of the information to criminally investigate or prosecute any alcohol or drug abuse patient.[facility] HospitalIn the event this information is protected by the Federal Confidentiality of Alcohol and Drug Abuse Patient Records regulations: The Federal rules restrict any use of the information to criminally investigate or prosecute any alcohol or drug abuse patient.[facility] HospitalIn the event this information is protected by the Federal Confidentiality of Alcohol and Drug Abuse Patient Records regulations: The Federal rules restrict any use of the information to criminally investigate or prosecute any alcohol or drug abuse patient.[facility] HospitalIn the event this information is protected by the Federal Confidentiality of Alcohol and Drug Abuse Patient Records regulations: The Federal rules restrict any use of the information to criminally investigate or prosecute any alcohol or drug abuse patient.[facility] HospitalIn the event this information is protected by the Federal Confidentiality of Alcohol and Drug Abuse Patient Records regulations: The Federal rules restrict any use of the information to criminally investigate or prosecute any alcohol or drug abuse patient.[facility] HospitalIn the event this information is protected by the Federal Confidentiality of Alcohol and Drug Abuse Patient Records regulations: The Federal rules restrict any use of the information to criminally investigate or prosecute any alcohol or drug abuse patient.[facility] HospitalIn the event this information is protected by the Federal Confidentiality of Alcohol and Drug Abuse Patient Records regulations: The Federal rules restrict any use of the information to criminally investigate or prosecute any alcohol or drug abuse patient.[facility] HospitalIn the event this information is protected by the Federal Confidentiality of Alcohol and Drug Abuse Patient Records regulations: The Federal rules restrict any use of the information to criminally investigate or prosecute any alcohol or drug abuse patient.[facility] HospitalIn the event this information is protected by the Federal Confidentiality of Alcohol and Drug Abuse Patient Records regulations: The Federal rules restrict any use of the information to criminally investigate or prosecute any alcohol or drug abuse patient.[facility] HospitalIn the event this information is protected by the Federal Confidentiality of Alcohol and Drug Abuse Patient Records regulations: The Federal rules restrict any use of the information to criminally investigate or prosecute any alcohol or drug abuse patient.[facility] HospitalIn the event this information is protected by the Federal Confidentiality of Alcohol and Drug Abuse Patient Records regulations: The Federal rules restrict any use of the information to criminally investigate or prosecute any alcohol or drug abuse patient.[facility] HospitalIn the event this information is protected by the Federal Confidentiality of Alcohol and Drug Abuse Patient Records regulations: The Federal rules restrict any use of the information to criminally investigate or prosecute any alcohol or drug abuse patient.[facility] HospitalIn the event this information is protected by the Federal Confidentiality of Alcohol and Drug Abuse Patient Records regulations: The Federal rules restrict any use of the information to criminally investigate or prosecute any alcohol or drug abuse patient.[facility] HospitalIn the event this information is protected by the Federal Confidentiality of Alcohol and Drug Abuse Patient Records regulations: The Federal rules restrict any use of the information to criminally investigate or prosecute any alcohol or drug abuse patient.[facility] HospitalIn the event this information is protected by the Federal Confidentiality of Alcohol and Drug Abuse Patient Records regulations: The Federal rules restrict any use of the information to criminally investigate or prosecute any alcohol or drug abuse patient.[facility] HospitalIn the event this information is protected by the Federal Confidentiality of Alcohol and Drug Abuse Patient Records regulations: The Federal rules restrict any use of the information to criminally investigate or prosecute any alcohol or drug abuse patient.[facility] HospitalIn the event this information is protected by the Federal Confidentiality of Alcohol and Drug Abuse Patient Records regulations: The Federal rules restrict any use of the information to criminally investigate or prosecute any alcohol or drug abuse patient.[facility] HospitalIn the event this information is protected by the Federal Confidentiality of Alcohol and Drug Abuse Patient Records regulations: The Federal rules restrict any use of the information to criminally investigate or prosecute any alcohol or drug abuse patient.[facility] HospitalIn the event this information is protected by the Federal Confidentiality of Alcohol and Drug Abuse Patient Records regulations: The Federal rules restrict any use of the information to criminally investigate or prosecute any alcohol or drug abuse patient.[facility] HospitalIn the event this information is protected by the Federal Confidentiality of Alcohol and Drug Abuse Patient Records regulations: The Federal rules restrict any use of the information to criminally investigate or prosecute any alcohol or drug abuse patient.[facility] HospitalIn the event this information is protected by the Federal Confidentiality of Alcohol and Drug Abuse Patient Records regulations: The Federal rules restrict any use of the information to criminally investigate or prosecute any alcohol or drug abuse patient.[facility] HospitalIn the event this information is protected by the Federal Confidentiality of Alcohol and Drug Abuse Patient Records regulations: The Federal rules restrict any use of the information to criminally investigate or prosecute any alcohol or drug abuse patient.[facility] HospitalIn the event this information is protected by the Federal Confidentiality of Alcohol and Drug Abuse Patient Records regulations: The Federal rules restrict any use of the information to criminally investigate or prosecute any alcohol or drug abuse patient.[facility] HospitalIn the event this information is protected by the Federal Confidentiality of Alcohol and Drug Abuse Patient Records regulations: The Federal rules restrict any use of the information to criminally investigate or prosecute any alcohol or drug abuse patient.[facility] HospitalIn the event this information is protected by the Federal Confidentiality of Alcohol and Drug Abuse Patient Records regulations: The Federal rules restrict any use of the information to criminally investigate or prosecute any alcohol or drug abuse patient.[facility] HospitalIn the event this information is protected by the Federal Confidentiality of Alcohol and Drug Abuse Patient Records regulations: The Federal rules restrict any use of the information to criminally investigate or prosecute any alcohol or drug abuse patient.[facility]In the event this information is protected by the Federal Confidentiality of Alcohol and Drug Abuse Patient Records regulations: The Federal rules restrict any use of the information to criminally investigate or prosecute any alcohol or drug abuse patient.[facility] HospitalIn the event this information is protected by the Federal Confidentiality of Alcohol and Drug Abuse Patient Records regulations: The Federal rules restrict any use of the information to criminally investigate or prosecute any alcohol or drug abuse patient.[facility] HospitalIn the event this information is protected by the Federal Confidentiality of Alcohol and Drug Abuse Patient Records regulations: The Federal rules restrict any use of the information to criminally investigate or prosecute any alcohol or drug abuse patient.[facility] HospitalIn the event this information is protected by the Federal Confidentiality of Alcohol and Drug Abuse Patient Records regulations: The Federal rules restrict any use of the information to criminally investigate or prosecute any alcohol or drug abuse patient.[facility]In the event this information is protected by the Federal Confidentiality of Alcohol and Drug Abuse Patient Records regulations: The Federal rules restrict any use of the information to criminally investigate or prosecute any alcohol or drug abuse patient.[facility] HospitalIn the event this information is protected by the Federal Confidentiality of Alcohol and Drug Abuse Patient Records regulations: The Federal rules restrict any use of the information to criminally investigate or prosecute any alcohol or drug abuse patient.[facility]In the event this information is protected by the Federal Confidentiality of Alcohol and Drug Abuse Patient Records regulations: The Federal rules restrict any use of the information to criminally investigate or prosecute any alcohol or drug abuse patient.[facility] HospitalIn the event this information is protected by the Federal Confidentiality of Alcohol and Drug Abuse Patient Records regulations: The Federal rules restrict any use of the information to criminally investigate or prosecute any alcohol or drug abuse patient.[facility] HospitalIn the event this information is protected by the Federal Confidentiality of Alcohol and Drug Abuse Patient Records regulations: The Federal rules restrict any use of the information to criminally investigate or prosecute any alcohol or drug abuse patient.[facility] HospitalIn the event this information is protected by the Federal Confidentiality of Alcohol and Drug Abuse Patient Records regulations: The Federal rules restrict any use of the information to criminally investigate or prosecute any alcohol or drug abuse patient.[facility] HospitalIn the event this information is protected by the Federal Confidentiality of Alcohol and Drug Abuse Patient Records regulations: The Federal rules restrict any use of the information to criminally investigate or prosecute any alcohol or drug abuse patient.[facility] HospitalIn the event this information is protected by the Federal Confidentiality of Alcohol and Drug Abuse Patient Records regulations: The Federal rules restrict any use of the information to criminally investigate or prosecute any alcohol or drug abuse patient.[facility] HospitalIn the event this information is protected by the Federal Confidentiality of Alcohol and Drug Abuse Patient Records regulations: The Federal rules restrict any use of the information to criminally investigate or prosecute any alcohol or drug abuse patient.[facility] [facility] HospitalIn the event this information is protected by the Federal Confidentiality of Alcohol and Drug Abuse Patient Records regulations: The Federal rules restrict any use of the information to criminally investigate or prosecute any alcohol or drug abuse patient.[facility] HospitalIn the event this information is protected by the Federal Confidentiality of Alcohol and Drug Abuse Patient Records regulations: The Federal rules restrict any use of the information to criminally investigate or prosecute any alcohol or drug abuse patient.[facility] HospitalIn the event this information is protected by the Federal Confidentiality of Alcohol and Drug Abuse Patient Records regulations: The Federal rules restrict any use of the information to criminally investigate or prosecute any alcohol or drug abuse patient.[facility] HospitalIn the event this information is protected by the Federal Confidentiality of Alcohol and Drug Abuse Patient Records regulations: The Federal rules restrict any use of the information to criminally investigate or prosecute any alcohol or drug abuse patient.[facility] HospitalIn the event this information is protected by the Federal Confidentiality of Alcohol and Drug Abuse Patient Records regulations: The Federal rules restrict any use of the information to criminally investigate or prosecute any alcohol or drug abuse patient.[facility] HospitalIn the event this information is protected by the Federal Confidentiality of Alcohol and Drug Abuse Patient Records regulations: The Federal rules restrict any use of the information to criminally investigate or prosecute any alcohol or drug abuse patient.[facility] HospitalIn the event this information is protected by the Federal Confidentiality of Alcohol and Drug Abuse Patient Records regulations: The Federal rules restrict any use of the information to criminally investigate or prosecute any alcohol or drug abuse patient.[facility] HospitalIn the event this information is protected by the Federal Confidentiality of Alcohol and Drug Abuse Patient Records regulations: The Federal rules restrict any use of the information to criminally investigate or prosecute any alcohol or drug abuse patient.[facility] HospitalIn the event this information is protected by the Federal Confidentiality of Alcohol and Drug Abuse Patient Records regulations: The Federal rules restrict any use of the information to criminally investigate or prosecute any alcohol or drug abuse patient.[facility] HospitalIn the event this information is protected by the Federal Confidentiality of Alcohol and Drug Abuse Patient Records regulations: The Federal rules restrict any use of the information to criminally investigate or prosecute any alcohol or drug abuse patient.[facility] HospitalIn the event this information is protected by the Federal Confidentiality of Alcohol and Drug Abuse Patient Records regulations: The Federal rules restrict any use of the information to criminally investigate or prosecute any alcohol or drug abuse patient.[facility] HospitalIn the event this information is protected by the Federal Confidentiality of Alcohol and Drug Abuse Patient Records regulations: The Federal rules restrict any use of the information to criminally investigate or prosecute any alcohol or drug abuse patient.[facility] HospitalIn the event this information is protected by the Federal Confidentiality of Alcohol and Drug Abuse Patient Records regulations: The Federal rules restrict any use of the information to criminally investigate or prosecute any alcohol or drug abuse patient.[facility] HospitalIn the event this information is protected by the Federal Confidentiality of Alcohol and Drug Abuse Patient Records regulations: The Federal rules restrict any use of the information to criminally investigate or prosecute any alcohol or drug abuse patient.[facility] HospitalIn the event this information is protected by the Federal Confidentiality of Alcohol and Drug Abuse Patient Records regulations: The Federal rules restrict any use of the information to criminally investigate or prosecute any alcohol or drug abuse patient.[facility] HospitalIn the event this information is protected by the Federal Confidentiality of Alcohol and Drug Abuse Patient Records regulations: The Federal rules restrict any use of the information to criminally investigate or prosecute any alcohol or drug abuse patient.[facility] HospitalIn the event this information is protected by the Federal Confidentiality of Alcohol and Drug Abuse Patient Records regulations: The Federal rules restrict any use of the information to criminally investigate or prosecute any alcohol or drug abuse patient.[facility] HospitalIn the event this information is protected by the Federal Confidentiality of Alcohol and Drug Abuse Patient Records regulations: The Federal rules restrict any use of the information to criminally investigate or prosecute any alcohol or drug abuse patient.[facility] Reason for Visit (unrecogniz ed section and content) Reason Onset Date Comments Transition Of Care 09/14/2021 TCM Initial [facility] Hospital Discharge 09/13/21 Reason Onset Date Comments Transition Of Care 09/14/2021 TCM Pharmacy- Hospital discharge 09/13/21 Reason Comments Recheck Hosp follow up Specialty Diagnoses / Procedures Referred By Contac t Referred To Contact Internal Medicine / INTERNAL MEDICINE Diagnoses hospital follow up Procedures 4C EST HOSP/ER FU Hans Contreras [address] [place] [address] Anjel Braga APRN.SPECIALIST ICU [address] [place] [address] Referral ID Status Reason Start Date Expiration Date V isits Requested Visits Authorized [id number] Closed Financial Clearance Required - OON Payor Patient Cleared INN/SMCP Payor Auth Obtained 09/15/2021 06/18/2022 1 1 Reason Comments Patient Update Reason Comments Medication Problem Plan of Care Reason Comments Nifedipine issue Reason Onset Date Comments Transition Of Care 09/16/2021 [facility] Discharge 09/13/21 Reason Comments FYI-OT plan of care Reason Comments Anticoagulation Reason Comments Orders Reason Comments medication issue Reason Comments [facility] verbal order needed Reason Comments Medication Problem Reason Comments Consult gallbladder, abdomen pain Specialty Diagnoses / Procedures Referred By Contac t Referred To Contact General Surgery / GENERAL SURGERY Diagnoses Acute cholecystitis Abdominal pain Acute cholecystitis, persistent abdominal pain Procedures OFFICE/OUTPATIENT NEW MODERATE MDM 45-59 MINUTES NEW DDI PATIENT Adelaida Farias MD [address] [place] [address] Kaye Ortega MD [address] [facility] [place] [place] [address] Referral ID Status Reason Start Date Expiration Date V isits Requested Visits Authorized [id number] Closed Financial Clearance Required - OON Payor Patient Cleared INN/SMCP Payor Auth Obtained 09/08/2021 06/18/2022 1 1 Reason Comments Patient Question visit from 09/15/21 Reason Comments Patient Question Reason Comments Appointment CONSULT FOR CHOLECYS TECTOMY Reason Comments Appointment Reason Onset Date Comments Transition Of Care 09/21/2021 [facility] Discharge 09/13/21 Reason Comments Work excuse letter Reason Onset Date Comments Transition Of Care 09/29/2021 [facility] Discharge 09/13/21 Reason Onset Date Comments Refill Request 10/04/2021 Reason Comments Hypertension Specialty Diagnoses / Procedures Referred By Contac t Referred To Contact Internal Medicine / INTERNAL MEDICINE Diagnoses 09/13 ER Discharge main campus Broken ribs follow up Procedures 4C EST HOSP/ER FU Daija Morton MD [address] [place] [address] Anjel Braga APRN.LAMIN [address] [place] [address] Referral ID Status Reason Start Date Expiration Date Visits Re quested Visits Authorized [id number] Closed 10/07/2021 06/18/2022 1 1 Reason Comments Coumadin update / [place] Reason Comments Patient Update Orders Reason Comments [...] VOL VNTJ Emilie Jauregui PA-C [address] [place] [address] [place] [address] Referral ID Status Reason Start Date Expiration Date V isits Requested Visits Authorized [id number] Closed Auto-Generate d Referral 11/05/2021 06/18/2022 1 1 Specialty Diagnoses / Procedures Referred By Contac t Referred To Contact [facility] Diagnoses COPD with chronic bronchitis (HCC) Procedures OXIMETRY WITH AMBULATION NONINVASIVE EAR/PULSE OXIMETRY MULTIPLE DETER Emilie Jauregui PA-C [address] [place] [address] [address] [address] Referral ID Status Reason Start Date Expiration Date V isits Requested Visits Authorized [id number] Closed Auto-Generate d Referral 11/05/2021 06/18/2022 1 1 Specialty Diagnoses / Procedures Referred By Contac t Referred To Contact Pulmonary and Critical Care Medicine / PULMONARY MEDICINE Diagnoses pre op clearance for gen surgery Procedures RI EST PULM GENERAL Daija Morton MD [address] [place] [address] Emilie Jauregui PA-C [address] [address] Referral ID Status Reason Start Date Expiration Date Visits Re quested Visits Authorized [id number] Closed 10/21/2021 06/18/2022 1 1 Reason Comments Results Reason Comments Cardiac Clearance surgery to have gall bladder removed Reason Comments UTI Specialty Diagnoses / Procedures Referred By Contac t Referred To Contact Internal Medicine / INTERNAL MEDICINE Diagnoses Essential hypertension UTI Procedures OFFICE/OUTPATIENT ESTABLISHED MOD MDM 30-39 MIN 4C EST Anjel Segura, MUNICIPAL FIREFIGHTER.SPECIALIST ICU [address] [place] [address] Referral ID Status Reason Start Date Expiration Date Visits Re quested Visits Authorized [id number] Closed 11/17/2021 06/18/2022 1 1 Reason Onset Date Comments Refill Request 11/18/2021 Reason Onset Date Comments Refill Request 11/19/2021 Reason Comments Medication Request Reason Comments Clinical Update Reason Comments Patient Update Medication Request Reason Comments Appointment 01/14 ED F/U-need ED location to retrieve records Reason Comments ER F/U [facility] Specialty Diagnoses / Procedures Referred By Contac t Referred To Contact Internal Medicine / INTERNAL MEDICINE Diagnoses Follow-up examination hospital f/u Procedures OFFICE/OUTPATIENT ESTABLISHED MOD MDM 30-39 MIN 4C EST HOSP/ER MD Roosevelt Marks Terri, MUNICIPAL FIREFIGHTER.MEDIA TECHNICIAN [address] [place] [address] Referral ID Status Reason Start Date Expiration Date Visits Re quested Visits Authorized [id number] Closed 01/14/2022 06/18/2022 1 1 Reason Comments Established Patient follow up anand r Reason Comments Recheck Follow up, Hosp foll ow up Specialty Diagnoses / Procedures Referred By Contac t Referred To Contact Internal Medicine / INTERNAL MEDICINE Diagnoses [facility] ER f/u. 01-25-22. Black stool. Procedures 4C EST HOSP/ER MD Omi Marks Joy, APRN.SPECIALIST ICU [address] [place] [address] Referral ID Status Reason Start Date Expiration Date Visits Re quested Visits Authorized [id number] Closed 01/28/2022 04/28/2022 1 1 Reason Comments Follow Up Specialty Diagnoses / Procedures Referred By Contac t Referred To Contact Vascular Surgery / VASCULAR SURGERY Diagnoses PVD 1 year f/u with PVR and arterial Duplex [place] [address] [place] [address] [place] [address] [place] [address] Referral ID Status Reason Start Date Expiration Date Visits Re quested Visits Authorized [id number] Closed 01/31/2022 06/18/2022 1 1 Reason Comments Results, Lab Reason Onset Date Comments Refill Request 02/22/2022 Reason Comments Erroneous encounter-disregard Reason Comments Fall Reason Comments SWCC orders needed today Reason Comments admit to [facility] Reason Comments Social Work Services Reason Comments Medication Question Reason Comments Syncope Reason Onset Date Comments Refill Request 08/25/2022 Patient Update 08/25/2022 Reason Comments detention follow-up Reason Onset Date Comments Refill Request 08/29/2022 Reason Comments Refill Request [facility] Request Reason Comments patient problem Reason [...] fix this, also fell twice while in [facility] Reason Comments Mental status change Reason Comments No Show Reason Onset Date Comments Refill Request 01/23/2024 Reason Onset Date Comments Refill Request 03/12/2024 Reason Comments UTI Foul odor, confusion Reason Comments Home Health Orders Reason Comments [facility] update Reason Comments Home Care Management Patient Update Reason Comments detention discharge Gem guzman Reason Onset Date Comments Refill Request 12/13/2024 Reason Comments Jarett requesting records Reason Onset Date Comments Refill Request 12/16/2024 Reason Onset Date Comments Refill Request 01/17/2025 Care Teams (unrecognized sec tion and content) Construction Scheduler Relationship Specialty Start Date End Date Daija Morton MD [address] [place] [address] PCP - General Internal Medicine 03/21/17 Beatriz Correa CNP Referring 09/28/20 Daija Morton MD [address] [place] [address] Home Care Physician Internal Medicine 09/28/20 13, Pharmacist [address] [place] [address] Pharmacist Pharmacy 06/17/21 Lizette Ulloa RN [address] [place] [address] Primary Care Tortilla Maker Internal Medicine 09/14/21 10/14/21 Tamika Almaguer PASSPORT Australian Rules Footballer 09/26/17 Construction Scheduler Relationship Specialty Start Date End Date Daija Morton MD [address] [place] [address] PCP - General Internal Medicine 03/21/17 Beatriz Correa CNP Referring 09/28/20 Daija Morton MD [address] [place] [address] Home Care Physician Internal Medicine 09/28/20 13, Pharmacist [phone] [place] [address] Pharmacist Pharmacy 06/17/21 Lizette Ulloa, RN [address] [place] [address] Primary Care Tortilla Maker Internal Medicine 09/14/21 10/14/21 Tamika Almaguer PASSPORT Australian Rules Footballer 09/26/17 Construction Scheduler Relationship Specialty Start Date End Date Daija Morton MD [address] [place] [address] PCP - General Internal Medicine 03/21/17 Beatriz Correa, SPECIALIST ICU Referring 09/28/20 Daija Morton MD [address] [place] [address] Home Care Physician Internal Medicine 09/28/20 13, Pharmacist [phone] [place] [address] Pharmacist Pharmacy 06/17/21 Lizette Ulloa, RN [address] [place] [address] Primary Care Tortilla Maker Internal Medicine 09/14/21 10/14/21 Tamika Almaguer PASSPORT Australian Rules Footballer 09/26/17 Construction Scheduler Relationship Specialty Start Date End Date Daija Morton MD [address] [place] [address] PCP - General Internal Medicine 03/21/17 Beatriz Correa, SPECIALIST ICU Referring 09/28/20 Daija Morton MD [address] [place] [address] Home Care Physician Internal Medicine 09/28/20 13, Pharmacist [phone] [place] [address] Pharmacist Pharmacy 06/17/21 Lizette Ulloa, RN [address] [place] [address] Primary Care Tortilla Maker Internal Medicine 09/14/21 10/14/21 Tamika Almaguer PASSPORT Australian Rules Footballer 09/26/17 Construction Scheduler Relationship Specialty Start Date End Date Daija Morton MD [address] [place] [address] PCP - General Internal Medicine 03/21/17 Beatriz Correa CNP Referring 09/28/20 Daija Morton MD [address] [place] [address] Home Care Physician Internal Medicine 09/28/20 13, Pharmacist [phone] [place] [address] Pharmacist Pharmacy 06/17/21 Lizette Ulloa, [place] [address] [place] [address] Primary Care Tortilla Maker Internal Medicine 09/14/21 10/14/21 Tamika HARRELL Australian Rules Footballer 09/26/17 Construction Scheduler Relationship Specialty Start Date End Date Daija Morton MD [address] [place] [address] PCP - General Internal Medicine 03/21/17 Beatriz Correa CNP Referring 09/28/20 Daija Morton MD [address] [place] [address] Home Care Physician Internal Medicine 09/28/20 13, Pharmacist [phone] [place] [address] Pharmacist Pharmacy 06/17/21 Lizette Ulloa, [place] [address] [place] [address] Primary Care Tortilla Maker Internal Medicine 09/14/21 10/14/21 Tamika HARRELL Australian Rules Footballer 09/26/17 Construction Scheduler Relationship Specialty Start Date End Date Daija Morton MD [address] [place] [address] PCP - General Internal Medicine 03/21/17 Beatriz Correa CNP Referring 09/28/20 Daija Morton MD [address] [place] [address] Home Care Physician Internal Medicine 09/28/20 13, Pharmacist [phone] [place] [address] Pharmacist Pharmacy 06/17/21 Lizette Ulloa, RN [address] [place] [address] Primary Care Tortilla Maker Internal Medicine 09/14/21 10/14/21 Tamika Almaguer PASSPORT Australian Rules Footballer 09/26/17 Construction Scheduler Relationship Specialty Start Date End Date Daija Morton MD [address] [place] [address] PCP - General Internal Medicine 03/21/17 Beatriz Correa, SPECIALIST ICU Referring 09/28/20 Daija Morton MD [address] [place] [address] Home Care Physician Internal Medicine 09/28/20 13, Pharmacist [phone] [place] [address] Pharmacist Pharmacy 06/17/21 Lizette Ulloa, [place] [address] [place] [address] Primary Care Tortilla Maker Internal Medicine 09/14/21 10/14/21 Kaye Ortega MD [address] [place] [address] General Surgery 09/21/21 Tamika Almaguer PASSANYI Australian Rules Footballer 09/26/17 Construction Scheduler Relationship Specialty Start Date End Date Daija Morton MD [address] [place] [address] PCP - General Internal Medicine 03/21/17 Beatriz Correa, SPECIALIST ICU Referring 09/28/20 Daija Morton MD [address] [place] [address] Home Care Physician Internal Medicine 09/28/20 13, Pharmacist [phone] [place] [address] Pharmacist Pharmacy 06/17/21 Lizette Ulloa, [place] [address] [facility] [place] [address] Primary Care Tortilla Maker Internal Medicine 09/14/21 10/14/21 Kaye Ortega MD [address] [place] [address] General Surgery 09/21/21 Tamika HARRELL Australian Rules Footballer 09/26/17 Construction Scheduler Relationship Specialty Start Date End Date Daija Morton MD [address] [place] [address] PCP - General Internal Medicine 03/21/17 Beatriz Correa CNP Referring 09/28/20 Daija Morton MD [address] [place] [address] Home Care Physician Internal Medicine 09/28/20 13, Pharmacist [phone] [place] [address] Pharmacist Pharmacy 06/17/21 Lizette Ulloa, [place] [address] [place] [address] Primary Care Tortilla Maker Internal Medicine 09/14/21 10/14/21 Kaye Ortega MD [address] [place] [address] General Surgery 09/21/21 Tamika HARRELL Australian Rules Footballer 09/26/17 Construction Scheduler Relationship Specialty Start Date End Date Daija Morton MD [address] [place] [address] PCP - General Internal Medicine 03/21/17 Beatriz Correa, LAMIN Referring 09/28/20 Daija Morton MD [address] [place] [address] Home Care Physician Internal Medicine 09/28/20 13, Pharmacist [phone] [place] [address] Pharmacist Pharmacy 06/17/21 Lizette Ulloa RN [address] [place] [address] Primary Care Tortilla Maker Internal Medicine 09/14/21 10/14/21 Kaye Ortega MD [address] [facility] [place] [address] General Surgery 09/21/21 [facility]ika [facility] Australian Rules Footballer 09/26/17 Construction Scheduler Relationship Specialty Start Date End Date Daija Morton MD [address] [place] [address] PCP - General Internal Medicine 03/21/17 Beatriz Correa, SPECIALIST ICU Referring 09/28/20 Daija Morton MD [address] [place] [address] Home Care Physician Internal Medicine 09/28/20 13, Pharmacist [phone] [place] [address] Pharmacist Pharmacy 06/17/21 Lizette Ulloa RN [address] [place] [address] Primary Care Tortilla Maker Internal Medicine 09/14/21 10/14/21 Kaye Ortega MD [address] [facility] [place] [address] General Surgery 09/21/21 Tamika HARRELL Australian Rules Footballer 09/26/17 Construction Scheduler Relationship Specialty Start Date End Date Daija Morton MD [address] [place] [address] PCP - General Internal Medicine 03/21/17 Beatriz Correa, LAMIN Referring 09/28/20 Daija Morton MD [address] [place] [address] Home Care Physician Internal Medicine 09/28/20 13, Pharmacist [address] [place] [address] Pharmacist Pharmacy 06/17/21 Lizette Ulloa RN [address] [facility] [place] [address] Primary Care Tortilla Maker Internal Medicine 09/14/21 10/14/21 Kaye Ortega MD [address] [facility] [place] [address] General Surgery 09/21/21 Tamika [facility] Australian Rules Footballer 09/26/17 Construction Scheduler Relationship Specialty Start Date End Date Daija Morton MD [address] [place] [address] PCP - General Internal Medicine 03/21/17 Beatriz Correa CNP Referring 09/28/20 Daija Morton MD [address] [place] [address] Home Care Physician Internal Medicine 09/28/20 Fco Franklin, [place] [address] [place] [address] Blade Balancer 10/08/20 12/21/20 13, Pharmacist [phone] [place] [address] Pharmacist Pharmacy 06/17/21 Lizette Ulloa RN [address] [facility] [place] [address] Primary Care Tortilla Maker Internal Medicine 09/14/21 10/14/21 Kaye Ortega MD [address] [place] [address] General Surgery 09/21/21 Tamika Minimary Almaguer PASSPORT Australian Rules Footballer 09/26/17 Construction Scheduler Relationship Specialty Start Date End Date Daija Morton MD [address] [place] [address] PCP - General Internal Medicine 03/21/17 Beatriz Correa CNP Referring 09/28/20 Daija Morton MD [address] [place] [address] Home Care Physician Internal Medicine 09/28/20 13, Pharmacist [phone] [place] [address] Pharmacist Pharmacy 06/17/21 Lizette Ulloa RN [address] [place] [address] Primary Care Tortilla Maker Internal Medicine 09/14/21 10/14/21 Kaye Ortega MD [address] [place] [address] General Surgery 09/21/21 Tamika Almaguer PASSPORT Australian Rules Footballer 09/26/17 Construction Scheduler Relationship Specialty Start Date End Date Daija Morton MD [address] [place] [address] PCP - General Internal Medicine 03/21/17 Beatriz Correa CNP Referring 09/28/20 10/12/21 Daija Morton MD [address] [place] [address] Home Care Physician Internal Medicine 09/28/20 10/12/21 13, Pharmacist [address] [place] [address] Pharmacist Pharmacy 06/17/21 Lizette Ulloa, [place] [address] [place] [address] Primary Care Tortilla Maker Internal Medicine 09/14/21 10/14/21 Kaye Ortega MD [address] [place] [id number] General Surgery 09/21/21 Ye Coello MD [address] [place], [place] [id number] General Surgery 10/13/21 Emilie Jauregui PA-C [address] [place] [address] Specialty Learning And Development Manager Pulmonary and Critical Care Medicine 10/13/21 Ryan May MD [address] [place], [place] [id number] Specialty Learning And Development Manager Vascular Surgery 10/13/21 Geronimo Medina, DO [address] [address] Bevel Polisher Cardiology 10/13/21 Tamika Almaguer [facility] Australian Rules Footballer 09/26/17 Construction Scheduler Relationship Specialty Start Date End Date Daija Morton MD [address] [place], [place] [id number] PCP - General Internal Medicine 03/21/17 13, Pharmacist [phone] [place] [address] Pharmacist Pharmacy 06/17/21 Lizette Ulloa, [place] [address] [place] [address] Primary Care Tortilla Maker Internal Medicine 09/14/21 10/14/21 Kaye Ortega MD [address] [place] [id number] General Surgery 09/21/21 Ye Coello MD [address] [place], [place] [id number] General Surgery 10/13/21 Emilie Jauregui PA-C [address] [place], [place] [id number] Specialty Learning And Development Manager Pulmonary and Critical Care Medicine 10/13/21 Ryan May MD [address] [place] [address] Specialty Learning And Development Manager Vascular Surgery 10/13/21 Geronimo Medina DO [address] [address] Bevel Polisher Cardiology 10/13/21 Tamika Almaguer [facility] Australian Rules Footballer 09/26/17 Construction Scheduler Relationship Specialty Start Date End Date Daija Morton MD [address] [place], [place] [id number] PCP - General Internal Medicine 03/21/17 Beatriz Correa, SPECIALIST ICU Referring 09/28/20 10/12/21 Daija Morton MD [address] [place], [place] [address] Home Care Physician Internal Medicine 09/28/20 10/12/21 13, Pharmacist [phone] [place] [address] Pharmacist Pharmacy 06/17/21 Lizette Ulloa, [place] [address] [place] [address] Primary Care Tortilla Maker Internal Medicine 09/14/21 10/14/21 Kaye Ortega MD [address] [place] [phone] General Surgery 09/21/21 Ye Coello MD [address] [place], [place] [id number] General Surgery 10/13/21 Emilie Jauregui PA-C [address] [place] [address] Specialty Learning And Development Manager Pulmonary and Critical Care Medicine 10/13/21 Ryan May MD [address] [place] [address] Specialty Learning And Development Manager Vascular Surgery 10/13/21 Geronimo Medina, [address] [address] Bevel Polisher Cardiology 10/13/21 Tamika Canales [facility] Australian Rules Footballer 09/26/17 Construction Scheduler Relationship Specialty Start Date End Date Daija Morton MD [address] [place] [address] PCP - General Internal Medicine 03/21/17 13, Pharmacist [phone] [place] [address] Pharmacist Pharmacy 06/17/21 Lizette Ulloa, RN [address] [place] [address] Primary Care Tortilla Maker Internal Medicine 09/14/21 10/14/21 Kaye Ortega MD [address] [place] [address] General Surgery 09/21/21 Ye Coello MD [address] [place] [address] General Surgery 10/13/21 Emilie Jauregui PA-C [address] [place] [address] Specialty Learning And Development Manager Pulmonary and Critical Care Medicine 10/13/21 Ryan May MD [address] [place], [place] [id number] Specialty Learning And Development Manager Vascular Surgery 10/13/21 Geronimo Medina DO [address] [address] Bevel Polisher Cardiology 10/13/21 Tamika HARRELL [employer] 09/26/17 Construction Scheduler Relationship Specialty Start Date End Date Daija Morton MD [address] [place] [address] PCP - General Internal Medicine 03/21/17 13, Pharmacist [address]37 [place] [address] Pharmacist Pharmacy 06/17/21 Kaye Ortega MD [address] [place] [address] General Surgery 09/21/21 Ye Coello MD [address] [place], [place] [id number] General Surgery 10/13/21 Emilie Jauregui PA-C [address] [place], [place] [address]01 Specialty Learning And Development Manager Pulmonary and Critical Care Medicine 10/13/21 Ryan May MD [address] [place] [address] Specialty Learning And Development Manager Vascular Surgery 10/13/21 Geronimo Medina DO [address] [address] Bevel Polisher Cardiology 10/13/21 Tamika HARRELL [employer] 09/26/17 Construction Scheduler Relationship Specialty Start Date End Date Daija Morton MD [address] [place] [address] PCP - General Internal Medicine 03/21/17 13, Pharmacist [phone] [place] [address] Pharmacist Pharmacy 06/17/21 Kaye Ortega MD [address] [place] [address] General Surgery 09/21/21 Ye Coello MD [address] [place], [place] [id number] General Surgery 10/13/21 Emilie Jauregui PA-C [address] [place] [address] Specialty Learning And Development Manager Pulmonary and Critical Care Medicine 10/13/21 Ryan May MD [address] [place] [address] Specialty Learning And Development Manager Vascular Surgery 10/13/21 Geronimo Medina, [address] [address] Bevel Polisher Cardiology 10/13/21 Tamika Almaguer [facility] Australian Rules Footballer 09/26/17 Construction Scheduler Relationship Specialty Start Date End Date Daija Morton MD [address] [place] [address] PCP - General Internal Medicine 03/21/17 13, Pharmacist [phone] [place] [address] Pharmacist Pharmacy 06/17/21 Kaye Ortega MD [address] [place] [address] General Surgery 09/21/21 Ye Coello MD [address] [place], [place] [id number] General Surgery 10/13/21 Emilie Jauregui PA-C [address] [place] [address] Specialty Learning And Development Manager Pulmonary and Critical Care Medicine 10/13/21 Ryan May MD [address] [place] [address] Specialty Learning And Development Manager Vascular Surgery 10/13/21 Geronimo Medina, DO [address] [address] Bevel Polisher Cardiology 10/13/21 Tamika Almaguer [employer] Australian [employer]er 09/26/17 Construction Scheduler Relationship Specialty Start Date End Date Daija Morton MD [address] [place] [address] PCP - General Internal Medicine 03/21/17 13, Pharmacist [phone] [place] [address] Pharmacist Pharmacy 06/17/21 Kaye Ortega MD [address] [place] [phone] General Surgery 09/21/21 Ye Coello MD [address] [place], [place] [id number] General Surgery 10/13/21 Emilie Jauregui PA-C [address] [place], [place] 391381 Specialty Learning And Development Manager Pulmonary and Critical Care Medicine 10/13/21 Ryan May MD [address] [place], [place] 4824295 Specialty Learning And Development Manager Vascular Surgery 10/13/21 Geronimo Medina, DO [address] [address] Bevel Polisher Cardiology 10/13/21 Tamika HARRELL [employer]er 09/26/17 Construction Scheduler Relationship Specialty Start Date End Date Daija Morton MD [address] [place] [address] PCP - General Internal Medicine 03/21/17 13, Pharmacist [address]52 [place] [address] Pharmacist Pharmacy 06/17/21 Kaye Ortega MD [address] [place] [phone] General Surgery 09/21/21 Ye Coello MD [address] [place], [place] [id number] General Surgery 10/13/21 Emilie Jauregui PA-C [address] [place] [address] Specialty Learning And Development Manager Pulmonary and Critical Care Medicine 10/13/21 Ryan May MD [address] [place] [address] Specialty Learning And Development Manager Vascular Surgery 10/13/21 Geronimo Medina, [address] [address] Bevel Polisher Cardiology 10/13/21 Tamika Almaguer [facility] Australian Rules Footballer 09/26/17 Construction Scheduler Relationship Specialty Start Date End Date Daija Morton MD [address] [place] [address] PCP - General Internal Medicine 03/21/17 13, Pharmacist 22862 [place] [address] Pharmacist Pharmacy 06/17/21 Kaye Ortega MD [address] [place] [address] General Surgery 09/21/21 Ye Coello MD [address] [place] [address] General Surgery 10/13/21 Emilie Jauregui PA-C [address] [place] [address] Specialty Learning And Development Manager Pulmonary and Critical Care Medicine 10/13/21 Ryan May MD [address] [place], [place] 5523395 Specialty Learning And Development Manager Vascular Surgery 10/13/21 Geronimo Medina DO [address] [address] Bevel Polisher Cardiology 10/13/21 Tamikadestiny Almaguer [facility] Australian Rules Footballer 09/26/17 Construction Scheduler Relationship Specialty Start Date End Date Daija Morton MD [address] [place], [place] [address]1111 PCP - General Internal Medicine 03/21/17 13, Pharmacist [address]23 [place] [address] Pharmacist Pharmacy 06/17/21 Kaye Ortega MD [address] [place] [address] General Surgery 09/21/21 Ye Coello MD [address] [place] [address] General Surgery 10/13/21 Emilie Jauregui PA-C [address] [place] [address] Specialty Learning And Development Manager Pulmonary and Critical Care Medicine 10/13/21 Ryan May MD [address] [place], [place] 3514995 Specialty Learning And Development Manager Vascular Surgery 10/13/21 Geronimo Medina DO [address] [address] Bevel Polisher Cardiology 10/13/21 Tamika HARRELL Australian [employer] Footballer 09/26/17 Construction Scheduler Relationship Specialty Start Date End Date Daija Morton MD [address] [place] [address] PCP - General Internal Medicine 03/21/17 13, Pharmacist 34737 [place] [address] Pharmacist Pharmacy 06/17/21 Kaye Ortega MD [address] [place] [address] General Surgery 09/21/21 Ye Coello MD [address] [place], [place] [id number] General Surgery 10/13/21 Emilie Jauregui PA-C [address] [place], [place] 217091 Specialty Learning And Development Manager Pulmonary and Critical Care Medicine 10/13/21 Ryan May MD [address] [place] [address] Specialty Learning And Development Manager Vascular Surgery 10/13/21 Geronimo Medina DO [address] [address] Bevel Polisher Cardiology 10/13/21 Tamika HARRELL [employer]er 09/26/17 Construction Scheduler Relationship Specialty Start Date End Date Daija Morton MD [address] [place] [address] PCP - General Internal Medicine 03/21/17 13, Pharmacist 12184 [place] [address] Pharmacist Pharmacy 06/17/21 Kaye Ortega MD [address] [place] [address] General Surgery 09/21/21 Ye Coello MD [address] [place], [place] [id number] General Surgery 10/13/21 Emilie Jauregui PA-C [address] [place], [place] 042541 Specialty Learning And Development Manager Pulmonary and Critical Care Medicine 10/13/21 Ryan May MD [address] [place], [place] 8324395 Specialty Learning And Development Manager Vascular Surgery 10/13/21 Geronimo Medina, [address] [address] Bevel Polisher Cardiology 10/13/21 Tamika Almaguer [facility] Australian Rules Footballer 09/26/17 Construction Scheduler Relationship Specialty Start Date End Date Daija Morton MD [address] [place] [address] PCP - General Internal Medicine 03/21/17 13, Pharmacist [phone] [place] [address] Pharmacist Pharmacy 06/17/21 Kaye Ortega MD [address] [place] [address] General Surgery 09/21/21 Ye Coello MD [address] [place], [place] [id number] General Surgery 10/13/21 Emilie Jauregui PA-C [address] [place] [address] Specialty Learning And Development Manager Pulmonary and Critical Care Medicine 10/13/21 Ryan May MD [address] [facility] [address] Specialty Learning And Development Manager Vascular Surgery 10/13/21 Geronimo Medina DO [address] [address] Bevel Polisher Cardiology 10/13/21 Tamika HARRELL Australian [employer] Footballer 09/26/17 Construction Scheduler Relationship Specialty Start Date End Date Daija Morton MD [address] [place] [address] PCP - General Internal Medicine 03/21/17 13, Pharmacist [phone] [place] [address] Pharmacist Pharmacy 06/17/21 Kaye Ortega MD [address] [place] [address] General Surgery 09/21/21 Ye Coello MD [address] [place], [place] [id number] General Surgery 10/13/21 Emilie Jauregui PA-C [address] [place] [address] Specialty Learning And Development Manager Pulmonary and Critical Care Medicine 10/13/21 Ryan May MD [address] [facility] [place] [address] Specialty Learning And Development Manager Vascular Surgery 10/13/21 Geronimo Medina DO [address] [address] Bevel Polisher Cardiology 10/13/21 Tamika HARRELL Australian [employer]er 09/26/17 Construction Scheduler Relationship Specialty Start Date End Date Daija Morton MD [address] [place] [address] PCP - General Internal Medicine 03/21/17 13, Pharmacist [phone] [place] [address] Pharmacist Pharmacy 06/17/21 Kaye Ortega MD [address] [place] [address] General Surgery 09/21/21 Ye Coello MD [address] [place], [place] [id number] General Surgery 10/13/21 Emilie Jauregui PANeshaC [address] [place] [address] Specialty Learning And Development Manager Pulmonary and Critical Care Medicine 10/13/21 Ryan May MD [address] [place] [address] Specialty Learning And Development Manager Vascular Surgery 10/13/21 Geronimo Medina, DO [address] [address] Bevel Polisher Cardiology 10/13/21 Tamika Almaguer [facility] Australian Rules Footballer 09/26/17 Construction Scheduler Relationship Specialty Start Date End Date Daija Morton MD [address] [place] [address] PCP - General Internal Medicine 03/21/17 13, Pharmacist 19993 [place] [address] Pharmacist Pharmacy 06/17/21 Kaye Ortega MD [address] [place] [address] General Surgery 09/21/21 Ye Coello MD [address] [place] [address] General Surgery 10/13/21 Emilie Jauregui PA-C [address] [place] [address] Specialty Learning And Development Manager Pulmonary and Critical Care Medicine 10/13/21 Ryan May MD [address] [place], [place] 8730595 Specialty Learning And Development Manager Vascular Surgery 10/13/21 Geronimo Medina, [address] [address] Bevel Polisher Cardiology 10/13/21 Tamika Almaguer [employer] Australian [employer] Footballer 09/26/17 Construction Scheduler Relationship Specialty Start Date End Date Daija Morton MD [address] [place], [place] 220541 PCP - General Internal Medicine 03/21/17 13, Pharmacist [address]19 [place] [address] Pharmacist Pharmacy 06/17/21 Kaye Ortega MD [address] [place] [address] General Surgery 09/21/21 Ye Coello MD [address] [place], [place] [id number] General Surgery 10/13/21 Emilie Jauregui PA-C [address] [place], [place] 283421 Specialty Learning And Development Manager Pulmonary and Critical Care Medicine 10/13/21 Ryan May MD [address] [place], [place] 8444095 Specialty Learning And Development Manager Vascular Surgery 10/13/21 Geronimo Medina DO [address] [address] Bevel Polisher Cardiology 10/13/21 Tamika Almaguer [employer] Australian [employer] Footballer 09/26/17 Construction Scheduler Relationship Specialty Start Date End Date Daija Morton MD [address] [place] [address] PCP - General Internal Medicine 03/21/17 13, Pharmacist [phone] [place] [address] Pharmacist Pharmacy 06/17/21 Kaye Ortega MD [address] [place] [address] General Surgery 09/21/21 Ye Coello MD [address] [place], [place] [id number] General Surgery 10/13/21 Emilie Jauregui PA-C [address] [place] [address] Specialty Learning And Development Manager Pulmonary and Critical Care Medicine 10/13/21 Ryan May MD [address] [place], [place] 5827195 Specialty Learning And Development Manager Vascular Surgery 10/13/21 Geronimo Medina, DO [address] [address] Bevel Polisher Cardiology 10/13/21 Tamika Almaguer [employer] Australian Rules Footballer 09/26/17 Construction Scheduler Relationship Specialty Start Date End Date Daija Morton MD [address] [place] [address] PCP - General Internal Medicine 03/21/17 13, Pharmacist 11552 [place] [address] Pharmacist Pharmacy 06/17/21 Kaye Ortega MD [address] [place] [address] General Surgery 09/21/21 Ye Coello MD [address] [place], [place] 802[address]85 General Surgery 10/13/21 Emilie Jauregui PA-C [address] [place] [address] Specialty Learning And Development Manager Pulmonary and Critical Care Medicine 10/13/21 Ryan May MD [address] [place] [address] Specialty Learning And Development Manager Vascular Surgery 10/13/21 Geronimo Medina DO [address] [address] Bevel Polisher Cardiology 10/13/21 Tamika Almaguer [facility] Australian Rules Footballer 09/26/17 Construction Scheduler Relationship Specialty Start Date End Date Daija Morton MD [address] [place], [place] 573023 [phone] PCP - General Internal Medicine 03/21/17 13, Pharmacist [phone] [place], [place] 9048411 Pharmacist Pharmacy 06/17/21 Kaye Ortega MD [address] [place] [address] General Surgery 09/21/21 Ye Coello MD [address] [place], [place] [id number] General Surgery 10/13/21 Emilie Jauregui PA-C [address] [place] [address] Specialty Learning And Development Manager Pulmonary and Critical Care Medicine 10/13/21 Ryan May MD 9570 [facility] [place] [address] Specialty Learning And Development Manager Vascular Surgery 10/13/21 Geronimo Medina DO [address] [address] Bevel Polisher Cardiology 10/13/21 Tamika HARRELL Australian [employer]er 09/26/17 Construction Scheduler Relationship Specialty Start Date End Date Daija Morton MD [address] [place] [address] PCP - General Internal Medicine 03/21/17 13, Pharmacist 83490 [place] [address] Pharmacist Pharmacy 06/17/21 Kaye Ortega MD [address] [place] [address] General Surgery 09/21/21 Ye Coello MD [address] [place], [place] [id number] General Surgery 10/13/21 Emilie Jauregui PA-C [address] [place] [address] Specialty Learning And Development Manager Pulmonary and Critical Care Medicine 10/13/21 Ryan May MD [address] [place] [address] Specialty Learning And Development Manager Vascular Surgery 10/13/21 Geronimo Medina DO [address] [address] Bevel Polisher Cardiology 10/13/21 Tamika HARRELL Australian [employer]er 09/26/17 Construction Scheduler Relationship Specialty Start Date End Date Daija Morton MD [address] [place] [address] PCP - General Internal Medicine 03/21/17 13, Pharmacist [address]17 [place] [address] Pharmacist Pharmacy 06/17/21 Kaye Ortega MD [address] [place] [address] General Surgery 09/21/21 Ye Coello MD [address] [place], [place] [id number] General Surgery 10/13/21 Emilie Jauregui PA-C [address] [place] [address] Specialty Learning And Development Manager Pulmonary and Critical Care Medicine 10/13/21 Ryan May MD [address] [place] [address] Specialty Learning And Development Manager Vascular Surgery 10/13/21 Geronimo Medina, DO [address] [id number] Bevel Polisher Cardiology 10/13/21 Tamika Almaguer [facility] Australian Rules Footballer 09/26/17 Construction Scheduler Relationship Specialty Start Date End Date Daija Morton MD [address] [place] [address] PCP - General Internal Medicine 03/21/17 13, Pharmacist [address]74 [place] [address] Pharmacist Pharmacy 06/17/21 Kaye Ortega MD [address] [place] [address] General Surgery 09/21/21 Ye Coello MD [address] [place], [place] [id number] General Surgery 10/13/21 Emilie Jauregui PA-C [address] [place] [address] Specialty Learning And Development Manager Pulmonary and Critical Care Medicine 10/13/21 Ryan May MD [address] [place], [place] 4326395 Specialty Learning And Development Manager Vascular Surgery 10/13/21 Geronimo Medina, DO [address] [address] Bevel Polisher Cardiology 10/13/21 Tamika [facility]maguer [facility] Australian Rules Footballer 09/26/17 Construction Scheduler Relationship Specialty Start Date End Date Daija Morton MD [address] [place], [place] 451514 [phone] PCP - General Internal Medicine 03/21/17 13, Pharmacist [address]13 [place] [address] Pharmacist Pharmacy 06/17/21 Kaye Ortega MD [address] [place] [address] General Surgery 09/21/21 Ye Coello MD [address] [place] [address] General Surgery 10/13/21 Emilie Jauregui PA-C [address] [place] [address] Specialty Learning And Development Manager Pulmonary and Critical Care Medicine 10/13/21 Ryan May MD [address] [place], [place] 3952195 Specialty Learning And Development Manager Vascular Surgery 10/13/21 Geronimo Medina, DO [address] [address] Bevel Polisher Cardiology 10/13/21 Tamika Almaguer [employer] Australian [employer]er 09/26/17 Construction Scheduler Relationship Specialty Start Date End Date Daija Morton MD [address] [place] [address] PCP - General Internal Medicine 03/21/17 13, Pharmacist [address]02 [place] [address] Pharmacist Pharmacy 06/17/21 Kaye Ortega MD [address] [place] [phone] General Surgery 09/21/21 Ye Coello MD [address] [place], [place] [id number] General Surgery 10/13/21 Emilie Jauregui PA-C [address] [place] [address] Specialty Learning And Development Manager Pulmonary and Critical Care Medicine 10/13/21 Ryan May MD [address] [place], [place] 8744295 Specialty Learning And Development Manager Vascular Surgery 10/13/21 Geronimo Medina, [address] [address] Bevel Polisher Cardiology 10/13/21 Tamika Almaguer [employer] Australian [employer]er 09/26/17 Construction Scheduler Relationship Specialty Start Date End Date Daija Morton MD [address] [place] [address] PCP - General Internal Medicine 03/21/17 13, Pharmacist [address]95 [place] [address] Pharmacist Pharmacy 06/17/21 Kaye Ortega MD [address] [place] [address] General Surgery 09/21/21 Ye Coello MD [address] [place], [place] 270095 General Surgery 10/13/21 Emilie Jauregui PA-C [address] [place] [address] Specialty Learning And Development Manager Pulmonary and Critical Care Medicine 10/13/21 Ryan May MD [address] [place] [address] Specialty Learning And Development Manager Vascular Surgery 10/13/21 Geronimo Medina DO [address] [address] Bevel Polisher Cardiology 10/13/21 Tamika Almaguer [facility] Australian Rules Footballer 09/26/17 Construction Scheduler Relationship Specialty Start Date End Date Daija Morton MD [address] [place] [address] PCP - General Internal Medicine 03/21/17 13, Pharmacist 31188 [place] [address] Pharmacist Pharmacy 06/17/21 Kaye Ortega MD [address] [place] [address] General Surgery 09/21/21 Ye Coello MD [address] [place], [place] [id number] General Surgery 10/13/21 Emilie Jauregui PA-C [address] [place] [address] Specialty Learning And Development Manager Pulmonary and Critical Care Medicine 10/13/21 Ryan May MD [address] [place] [address] Specialty Learning And Development Manager Vascular Surgery 10/13/21 Geronimo Medina DO [address] [address] Bevel Polisher Cardiology 10/13/21 Tamika Almaguer [employer] Australian [employer]er 09/26/17 Construction Scheduler Relationship Specialty Start Date End Date Daija Morton MD [address] [place] [address] PCP - General Internal Medicine 03/21/17 13, Pharmacist 65811 [place] [address] Pharmacist Pharmacy 06/17/21 Kaye Ortega MD [address] [place] [address] General Surgery 09/21/21 Ye Coello MD [address] [place] [address] General Surgery 10/13/21 Emilie Jauregui PA-C [address] [place] [address] Specialty Learning And Development Manager Pulmonary and Critical Care Medicine 10/13/21 Ryan May MD [address] [place] [address] Specialty Learning And Development Manager Vascular Surgery 10/13/21 Geronimo Medina DO [address] [address] Bevel Polisher Cardiology 10/13/21 Tamika HARRELL [employer] 09/26/17 Construction Scheduler Relationship Specialty Start Date End Date Daija Morton MD [address] [place] [address] PCP - General Internal Medicine 03/21/17 13, Pharmacist [address]06 [place] [address] Pharmacist Pharmacy 06/17/21 Kaye Ortega MD [address] [place] [phone] General Surgery 09/21/21 Ye Coello MD [address] [place], [place] 67314685 General Surgery 10/13/21 Emilie Jauregui PAAsthyn [address] [place] [address] Specialty Learning And Development Manager Pulmonary and Critical Care Medicine 10/13/21 Ryan May MD [address] [place] [address] Specialty Learning And Development Manager Vascular Surgery 10/13/21 Geronimo Medina DO [address] [id number] Bevel Polisher Cardiology 10/13/21 Tamika Almaguer [facility] Australian Rules Footballer 09/26/17 Construction Scheduler Relationship Specialty Start Date End Date Daija Morton MD [address] [place], [place] [id number] [phone] PCP - General Internal Medicine 03/21/17 13, Pharmacist 21865 [place] [address] Pharmacist Pharmacy 06/17/21 Kaye Ortega MD [address] [place] [address] General Surgery 09/21/21 Ye Coello MD [address] [place], [place] 5543[address] General Surgery 10/13/21 Emilie Jauregui PA-C [address] [place] [address] Specialty Learning And Development Manager Pulmonary and Critical Care Medicine 10/13/21 Ryan May MD [address] [place], [place] 3003095 Specialty Learning And Development Manager Vascular Surgery 10/13/21 Geronimo Medina, [address] [address] Bevel Polisher Cardiology 10/13/21 Tamika Minick Tripp [facility] Australian [employer]er 09/26/17 Construction Scheduler Relationship Specialty Start Date End Date Daija Morton MD [address] [place] [address] PCP - General Internal Medicine 03/21/17 13, Pharmacist 88940 [place] [address] Pharmacist Pharmacy 06/17/21 04/12/22 Kaye Ortega MD [address] [place] [address] General Surgery 09/21/21 Ye Coello MD [address] [place] [address] General Surgery 10/13/21 Emilie Jauregui PA-C [address] [place] [address] Specialty Learning And Development Manager Pulmonary and Critical Care Medicine 10/13/21 Ryan May MD [address] [place] [address] Specialty Learning And Development Manager Vascular Surgery 10/13/21 Geronimo Medina DO [address] [address] Bevel Polisher Cardiology 10/13/21 Tamika Almaguer [employer] 09/26/17 Team Status: Active Member Role Status [...] Provider Active Андрей Cooley Attending Provider Active Construction Scheduler Relationship Specialty Start Date End Date Daija Morton MD [address] [place] [address] PCP - General Internal Medicine 03/21/17 Kaye Ortega MD [address] [place] [address] General Surgery 09/21/21 Ye Coello MD [address] [place] [address] General Surgery 10/13/21 Emilie Jauregui PA-Edilma [address] [place], [place] 891261 Specialty Learning And Development Manager Pulmonary and Critical Care Medicine 10/13/21 Ryan May MD [address] [place] [address] Specialty Learning And Development Manager Vascular Surgery 10/13/21 Geronimo Medina DO [address] [address] Bevel Polisher Cardiology 10/13/21 Tamika Almaguer [employer] 09/26/17 Construction Scheduler Relationship Specialty Start Date End Date Daija Morton MD [address] [place] [address] PCP - General Internal Medicine 03/21/17 Kaye Ortega MD [address] [place] [address] General Surgery 09/21/21 Ye Coello MD [address] [place], [place] 751977 [phone] General Surgery 10/13/21 Emilie Jauregui PA-C [address] [place] [address] Specialty Learning And Development Manager Pulmonary and Critical Care Medicine 10/13/21 Ryan May MD [address] [place], [place] [id number] Specialty Learning And Development Manager Vascular Surgery 10/13/21 Geronimo Medina, [address] [phone] Bevel Polisher Cardiology 10/13/21 Tamika Almaguer [facility] Australian Rules Footballer 09/26/17 Construction Scheduler Relationship Specialty Start Date End Date Daija Morton MD [address] [place] [address] PCP - General Internal Medicine 03/21/17 Kaye Ortega MD [address] [place] [address] General Surgery 09/21/21 Ye Coello MD [address] [place], [place] [id number] General Surgery 10/13/21 Emilie Jauregui PA-C [address] [place] [address] Specialty Learning And Development Manager Pulmonary and Critical Care Medicine 10/13/21 Ryan May MD [address] [place], [place] [id number] Specialty Learning And Development Manager Vascular Surgery 10/13/21 Geronimo Medina, DO [address] [address] Bevel Polisher Cardiology 10/13/21 Tamika HARRELL Australian Rules Footballer 09/26/17 Construction Scheduler Relationship Specialty Start Date End Date Daija Morton MD [address] [place] [address] PCP - General Internal Medicine 03/21/17 Kaye Ortega MD [address] [place] [address] General Surgery 09/21/21 Ye Coello MD [address] [place], [place] 386205 General Surgery 10/13/21 Emilie Jauregui PA-C [address] [place] [address] Specialty Learning And Development Manager Pulmonary and Critical Care Medicine 10/13/21 Ryan May MD [address] [place], [place] [id number] Specialty Learning And Development Manager Vascular Surgery 10/13/21 Geronimo Medina DO [address] [address] Bevel Polisher Cardiology 10/13/21 Tamika HARRELL Australian Rules Footballer 09/26/17 Construction Scheduler Relationship Specialty Start Date End Date Daija Morton MD [address] [place] [address] PCP - General Internal Medicine 03/21/17 Kaye Ortega MD [address] [place] [address] General Surgery 09/21/21 Ye Coello MD [address] [place] [address] General Surgery 10/13/21 Emilie Jauregui PA-C [address] [place] [address] Specialty Learning And Development Manager Pulmonary and Critical Care Medicine 10/13/21 Ryan May MD [address] [place], [place] [phone] Specialty Learning And Development Manager Vascular Surgery 10/13/21 Geronimo Medina, [address] [phone] Bevel Polisher Cardiology 10/13/21 Tamika Almaguer [facility] Australian Rules Footballer 09/26/17 Construction Scheduler Relationship Specialty Start Date End Date Daija Morton MD [address] [place] [address] PCP - General Internal Medicine 03/21/17 Kaye Ortega MD [address] [place] [address] General Surgery 09/21/21 Ye Coello MD [address] [place], [place] 820438 [phone] General Surgery 10/13/21 Emilie Jauregui PA-C [address] [place] [address] Specialty Learning And Development Manager Pulmonary and Critical Care Medicine 10/13/21 Ryan May MD [address] [place], [place] 7981495 Specialty Learning And Development Manager Vascular Surgery 10/13/21 Geronimo Medina DO [address] [address] Bevel Polisher Cardiology 10/13/21 Tamika Almaguer [employer] Australian Rules Footballer 09/26/17 Construction Scheduler Relationship Specialty Start Date End Date Daija Morton MD [address] [facility] [address] PCP - General Internal Medicine 03/21/17 Kaye Ortega MD [address] [place] [address] General Surgery 09/21/21 Ye Coello MD [address] [place], [place] [id number] General Surgery 10/13/21 Emilie Jauregui PA-C [address] [facility] [place] [address] Specialty Learning And Development Manager Pulmonary and Critical Care Medicine 10/13/21 Ryan May MD [address] [place] [address] Specialty Learning And Development Manager Vascular Surgery 10/13/21 Geronimo Medina, DO [address] [address] Bevel Polisher Cardiology 10/13/21 Tamika QUESADAPORT Australian Rules Footballer 09/26/17 Construction Scheduler Relationship Specialty Start Date End Date Daija Morton MD [address] [place] [address] PCP - General Internal Medicine 03/21/17 Kaye Ortega MD [address] [place] [address] General Surgery 09/21/21 Ye Coello MD [address] [place], [place] [address]65006[address] General Surgery 10/13/21 Emilie Jauregui PA-C [address] [place], [place] 414541 Specialty Learning And Development Manager Pulmonary and Critical Care Medicine 10/13/21 Ryan May MD [address] [facility] [place] [address] Specialty Learning And Development Manager Vascular Surgery 10/13/21 Geronimo Medina DO [address] [address] Bevel Polisher Cardiology 10/13/21 Tamikadestiny Almaguer [facility] Australian Rules Footballer 09/26/17 Team Status: Inactive Member Role Status Dates Dr. Daija Morton MD Primary Care Provider Active Андрей RAIN Attending Provider Active Team Status: Inactive Member Role Status Dates Dr. Daija Morton MD Primary Care Provider Active Dr. Jaden Jauregui MD Emergency Provider Active Construction Scheduler Relationship Specialty Start Date End Date Daija Morton MD [address] [place], [place] 112211 PCP - General Internal Medicine 03/21/17 Kaye Ortega MD [address] [place] [address] General Surgery 09/21/21 Ye Coello MD [address] [place], [place] 717925 General Surgery 10/13/21 Emilie Jauregui PA-C [address] [place] [address] Specialty Learning And Development Manager Pulmonary and Critical Care Medicine 10/13/21 Ryan May MD [address] [place] [address] Specialty Learning And Development Manager Vascular Surgery 10/13/21 Geronimo Medina DO [address] [address] Bevel Polisher Cardiology 10/13/21 Tamika HARRELL Australian Rules Footballer 09/26/17 Construction Scheduler Relationship Specialty Start Date End Date Daija Morton MD [address] [place], [place] 141221 PCP - General Internal Medicine 03/21/17 Kaye Ortega MD [address] [place] [address] General Surgery 09/21/21 Ye Coello MD [address] [place] [address] General Surgery 10/13/21 Emilie Jauregui PA-C [address] [place] [address] Specialty Learning And Development Manager Pulmonary and Critical Care Medicine 10/13/21 Ryan May MD [address] [place] [address] Specialty Learning And Development Manager Vascular Surgery 10/13/21 Geronimo Medina DO [address] [address] Bevel Polisher Cardiology 10/13/21 Tamika HARRELL Australian Rules Footballer 09/26/17 Team Status: Inactive Member Role Status Dates Dr. Daija Morton MD Primary Care Provider Active Dr. Jaden Jauregui MD Attending Provider, Emergency Provider Active Team Status: Inactive Member Role Status Dates Dr. Daija Morton MD Primary Care Provider Active Dr. Huber Alvarado MD Emergency Provider Active Construction Scheduler Relationship Specialty Start Date End Date Daija Morton MD [address] [place] [address] PCP - General Internal Medicine 03/21/17 Kaye Ortega MD [address] [place] [address] General Surgery 09/21/21 Ye Coello MD [address] [place] [address] General Surgery 10/13/21 Emilie Jauregui PA-C [address] [place] [address] Specialty Learning And Development Manager Pulmonary and Critical Care Medicine 10/13/21 Ryan May MD [address] [place] [address] Specialty Learning And Development Manager Vascular Surgery 10/13/21 Geronimo Medina DO [address] [address] Bevel Polisher Cardiology 10/13/21 Tamika Almaguer [facility] Australian Rules Footballer 09/26/17 Team Status: Inactive Member Role Status Dates Dr. Daija Morton MD Primary Care Provider Active Dr. Huber Alvarado MD Attending Provider, Emergency Provider Active Construction Scheduler Relationship Specialty Start Date End Date Daija Morton MD [address] [place] [address] PCP - General Internal Medicine 03/21/17 Kaye Ortega MD [address] [place] [address] General Surgery 09/21/21 Ye Coello MD [address] [place] [address] General Surgery 10/13/21 Emilie Jauregui PANeshaC [address] [place], [place] 200771 Specialty Learning And Development Manager Pulmonary and Critical Care Medicine 10/13/21 Ryan May MD [address] [place] [address] Specialty Learning And Development Manager Vascular Surgery 10/13/21 Geronimo Medina DO [address] [address] Bevel Polisher Cardiology 10/13/21 Tamika Almaguer [facility] Australian Rules Footballer 09/26/17 Team Status: Active Member Role Status [...] MD Admit Provider, Attending Pro vider Active Construction Scheduler Relationship Specialty Start Date End Date Daija Morton MD [address] [place] [address] PCP - General Internal Medicine 03/21/17 Kaye Ortega MD [address] [place] [address] General Surgery 09/21/21 Ye Coello MD [address] [place] [address] General Surgery 10/13/21 Emilie Jauregui PA-C [address] [place] [address] Specialty Learning And Development Manager Pulmonary and Critical Care Medicine 10/13/21 Ryan May MD [address] [facility] [place] [address] Specialty Learning And Development Manager Vascular Surgery 10/13/21 Geronimo Medina DO [address] [address] Bevel Polisher Cardiology 10/13/21 Tamikadestiny Almaguer [facility] Australian Rules Footballer 09/26/17 Team Status: Active Member Role Status [...] Dr. Elton Moore MD Other Provider Active Construction Scheduler Relationship Specialty Start Date End Date Daija Morton MD [address] [place] [address] PCP - General Internal Medicine 03/21/17 Kaye Ortega MD [address] [place] [address] General Surgery 09/21/21 Ye Coello MD [address] [place], [place] 031055 General Surgery 10/13/21 Emilie Jauregui PA-C [address] [place] [address] Specialty Learning And Development Manager Pulmonary and Critical Care Medicine 10/13/21 Ryan May MD [address] [place] [address] Specialty Learning And Development Manager Vascular Surgery 10/13/21 Geronimo Medina DO [address] [address] Bevel Polisher Cardiology 10/13/21 Tamika HARRELL Australian Rules Footballer 09/26/17 Construction Scheduler Relationship Specialty Start Date End Date Daija Morton MD [address] [place] [address] PCP - General Internal Medicine 03/21/17 Kaye Ortega MD [address] [place] [address] General Surgery 09/21/21 Ye Coello MD [address] [place] [address] General Surgery 10/13/21 Emilie Jauregui PA-C [address] [place] [address] Specialty Learning And Development Manager Pulmonary and Critical Care Medicine 10/13/21 Ryan May MD [address] [place] [address] Specialty Learning And Development Manager Vascular Surgery 10/13/21 Geronimo Medina DO [address] [place] [address] Bevel Polisher Cardiology 10/13/21 Tamika HARRELL Australian Rules Footballer 09/26/17 Construction Scheduler Relationship Specialty Start Date End Date Daija Morton MD [address] [place] [address] PCP - General Internal Medicine 03/21/17 Kaye Ortega MD [address] [place] [address] General Surgery 09/21/21 Ye Coello MD [address] [place] [address] General Surgery 10/13/21 Emilie Jauregui PA-C [address] [place] [address] Specialty Learning And Development Manager Pulmonary and Critical Care Medicine 10/13/21 Ryan May MD [address] [place] [address] Specialty Learning And Development Manager Vascular Surgery 10/13/21 Geronimo Medina DO [address] [place] [address] Bevel Polisher Cardiology 10/13/21 Tamika Almaguer [facility] Australian Rules Footballer 09/26/17 Team Status: Inactive Member Role Status [...] Provi ashley, Attending Provider, Referring Provider Active Construction Scheduler Relationship Specialty Start Date End Date Daija Morton MD [address] [place] [address] PCP - General Internal Medicine 03/21/17 Kaye Ortega MD [address] [place] [address] General Surgery 09/21/21 Ye Coello MD [address] [place] [address] General Surgery 10/13/21 Emilie Jauregui, PANeshaC [address] [place] [address] Specialty Learning And Development Manager Pulmonary and Critical Care Medicine 10/13/21 Ryan May MD [address] [place] [address] Specialty Learning And Development Manager Vascular Surgery 10/13/21 Geronimo Medina DO [address] [place] [address] Bevel Polisher Cardiology 10/13/21 Tamika Almaguer [facility] Australian Rules Footballer 09/26/17 Team Status: Active Member Role Status Dates Dr. Daija Morton MD Primary Care Provider Active Dr. Raul Melchor DO Emergency Provider Active Dr. Андрей Cooley MD Attending Provider Active Team Status: Active Member Role Status Dates Dr. Daija Morton MD Primary Care Provider Active Dr. Raul Melchor DO Emergency Provider Active Dr. Аднрей Cooley MD Admit Provider, Attending Provid er [...] Dr. Ryan Guerin DO Attending Provider Active Construction Scheduler Relationship Specialty Start Date End Date Daija Morton MD [address] [place], [place] 243[address] PCP - General Internal Medicine 03/21/17 Kaye Ortega MD [address] [place] [address] General Surgery 09/21/21 Ye Coello MD [address] [place], [place] 921575 General Surgery 10/13/21 Emilie Jauregui PA-C [address] [place] [address] Specialty Learning And Development Manager Pulmonary and Critical Care Medicine 10/13/21 Ryan May MD [address] [place] [address] Specialty Learning And Development Manager Vascular Surgery 10/13/21 Geronimo Medina DO [address] [place] [address] Bevel Polisher Cardiology 10/13/21 Tamika Almaguer [facility] Australian Rules Footballer 09/26/17 Construction Scheduler Relationship Specialty Start Date End Date Daija Morton MD [address] [place] [address] PCP - General Internal Medicine 03/21/17 Kaye Ortega MD [address] [place] [address] General Surgery 09/21/21 Ye Coello MD [address] [place] [address] General Surgery 10/13/21 Emilie Jauregui PA-C [address] [place], [place] 55[address]21 Specialty Learning And Development Manager Pulmonary and Critical Care Medicine 10/13/21 Ryan May MD [address] [place] [address] Specialty Learning And Development Manager Vascular Surgery 10/13/21 Geronimo Medina DO [address] [place] [address] Bevel Polisher Cardiology 10/13/21 Tamika HARRELL Australian Rules Footballer 09/26/17 Construction Scheduler Relationship Specialty Start Date End Date Daija Morton MD [address] [place] [address] PCP - General Internal Medicine 03/21/17 Kaye Ortega MD [address] [place] [address] General Surgery 09/21/21 Ye Coello MD [address] [place], [place] 8[address] General Surgery 10/13/21 Emilie Jauregui PA-C [address] [facility] [place], [place] [address] Specialty Learning And Development Manager Pulmonary and Critical Care Medicine 10/13/21 Ryan May MD [address] [place] [address] Specialty Learning And Development Manager Vascular Surgery 10/13/21 Geronimo Medina DO [address] [place] [address] Bevel Polisher Cardiology 10/13/21 Tamika Almaguer [facility] Australian Rules Footballer 09/26/17 Construction Scheduler Relationship Specialty Start Date End Date Daija oMrton MD [address] [place], [place] [address]4741 PCP - General Internal Medicine 03/21/17 Kaye Ortega MD [address] [place] [address] General Surgery 09/21/21 Ye Coello MD [address] [place] [address] General Surgery 10/13/21 Emilie Jauregui PA-C [address] [facility] [place] [address] Specialty Learning And Development Manager Pulmonary and Critical Care Medicine 10/13/21 Ryan May MD [address] [place] [address] Specialty Learning And Development Manager Vascular Surgery 10/13/21 Geronimo Medina DO [address] [place] [address] Bevel Polisher Cardiology 10/13/21 Tamika HARRELL Australian Rules Footballer 09/26/17 Construction Scheduler Relationship Specialty Start Date End Date Daija Morton MD [address] [place] [address] PCP - General Internal Medicine 03/21/17 Kaye Ortega MD [address] [place] [address] General Surgery 09/21/21 Ye Coello MD [address] [place] [address] General Surgery 10/13/21 Emilie Jauregui PA-C [address] [place] [address] Specialty Learning And Development Manager Pulmonary and Critical Care Medicine 10/13/21 Ryan May MD [address] [place] [address] Specialty Learning And Development Manager Vascular Surgery 10/13/21 Geronimo Medina DO [address] [place] [address] Bevel Polisher Cardiology 10/13/21 Tamika HARRELL Australian Rules Footballer 09/26/17 Construction Scheduler Relationship Specialty Start Date End Date Daija Morton MD [address] [place] [address] PCP - General Internal Medicine 03/21/17 Kaye Ortega MD [address] [place] [address] General Surgery 09/21/21 Ye Coello MD [address] [place] [address] General Surgery 10/13/21 Emilie Jauregui PA-C [address] [place] [address] Specialty Learning And Development Manager Pulmonary and Critical Care Medicine 10/13/21 Ryan May MD [address] [place] [address] Specialty Learning And Development Manager Vascular Surgery 10/13/21 Geronimo Medina DO [address] [place] [address] Bevel Polisher Cardiology 10/13/21 Tamika Almaguer [facility] Australian Rules Footballer 09/26/17 Construction Scheduler Relationship Specialty Start Date End Date Daija Morton MD [address] [place] [address] PCP - General Internal Medicine 03/21/17 Kaye Ortega MD [address] [place] [address] General Surgery 09/21/21 Ye Coello MD [address] [place] [address] General Surgery 10/13/21 Emilie Jauregui PA-C [address] [place], [place] 06[address] Specialty Learning And Development Manager Pulmonary and Critical Care Medicine 10/13/21 Ryan May MD [address] [place] [address] Specialty Learning And Development Manager Vascular Surgery 10/13/21 Geronimo Medina DO [address] [place] [address] Bevel Polisher Cardiology 10/13/21 Tamika Almaguer [facility] Australian Rules Footballer 09/26/17 Construction Scheduler Relationship Specialty Start Date End Date Daija Morton MD [address] [place] [address] PCP - General Internal Medicine 03/21/17 Kaye Ortega MD [address] [facility] [place] [address] General Surgery 09/21/21 Ye Coello MD [address] [place] [address] General Surgery 10/13/21 Emilie Jauregui PA-C [address] [facility] [place] [address] Specialty Learning And Development Manager Pulmonary and Critical Care Medicine 10/13/21 Ryan May MD [address] [place] [address] Specialty Learning And Development Manager Vascular Surgery 10/13/21 Geronimo Medina DO [address] [place] [address] Bevel Polisher Cardiology 10/13/21 Tamika HARRELL Australian Rules Footballer 09/26/17 Construction Scheduler Relationship Specialty Start Date End Date Daija Morton MD [address] [place], [place] 882601 PCP - General Internal Medicine 03/21/17 Kaye Ortega MD [address] [place] [address] General Surgery 09/21/21 Ye Coello MD [address] [place], [place] 755945 General Surgery 10/13/21 Emilie Jauregui PANeshaC [address] [place] [address] Specialty Learning And Development Manager Pulmonary and Critical Care Medicine 10/13/21 Ryan May MD [address] [place] [address] Specialty Learning And Development Manager Vascular Surgery 10/13/21 Geronimo Medina DO [address] [place] [address] Bevel Polisher Cardiology 10/13/21 Tamika HARRELL Australian Rules Footballer 09/26/17 Construction Scheduler Relationship Specialty Start Date End Date Daija Morton MD [address] [place] [address] PCP - General Internal Medicine 03/21/17 Beatriz Correa SPECIALIST ICU [address] [place] [facility] [place] [address] Referring 09/28/20 10/12/21 Daija Morton MD [address] [place] [address] Home Care Provider Internal Medicine 09/28/20 10/12/21 Fco Franklin, [address] [address] [place] [address] Blade Balancer 10/08/20 12/21/20 Tamika Almaguer [facility] Australian Rules Footballer 09/26/17 Construction Scheduler Relationship Specialty Start Date End Date Daija Morton MD [address] [place], [place] 268511 PCP - General Internal Medicine 03/21/17 Kaye Ortega MD [address] [place] [address] General Surgery 09/21/21 Ye Coello MD [address] [place] [address] General Surgery 10/13/21 Emilie Jauregui PA-C [address] [place] [address] Specialty Learning And Development Manager Pulmonary and Critical Care Medicine 10/13/21 Ryan May MD [address] [place] [address] Specialty Learning And Development Manager Vascular Surgery 10/13/21 Gernoimo Medina DO [address] [place] [address] Bevel Polisher Cardiology 10/13/21 Tamika HARRELL Australian Rules Footballer 09/26/17 Construction Scheduler Relationship Specialty Start Date End Date Daija Morton MD [address] [place], [place] 394421 PCP - General Internal Medicine 03/21/17 Kaye Ortega MD [address] [place] [address] General Surgery 09/21/21 Ye Coello MD [address] [place] [address] General Surgery 10/13/21 Emilie Jauregui PA-C [address] [place] [address] Specialty Learning And Development Manager Pulmonary and Critical Care Medicine 10/13/21 Ryan May MD [address] [place] [address] Specialty Learning And Development Manager Vascular Surgery 10/13/21 Geronimo Medina DO [address] [place] [address] Bevel Polisher Cardiology 10/13/21 Tamika Almaguer [employer] Australian Rules Footballer 09/26/17 Construction Scheduler Relationship Specialty Start Date End Date Daija Morton MD [address] [place], [place] 007651 PCP - General Internal Medicine 03/21/17 Kaye Ortega MD [address] [place] [address] General Surgery 09/21/21 Ye Coello MD [address] [place], [place] 4820[address] General Surgery 10/13/21 Emilie Jauregui PA-C [address] [facility] [place] [place] [phone] Specialty Learning And Development Manager Pulmonary and Critical Care Medicine 10/13/21 Ryan May MD [address] [place] [address] Specialty Learning And Development Manager Vascular Surgery 10/13/21 Geronimo Medina DO [address] [place] [address] Bevel Polisher Cardiology 10/13/21 Tamika Almaguer [facility] Australian Rules Footballer 09/26/17 Construction Scheduler Relationship Specialty Start Date End Date Daija Morton MD [address] [place], [place] 409861 PCP - General Internal Medicine 03/21/17 Kaye Ortega MD [address] [facility] [place] [place] [address] General Surgery 09/21/21 Ye Coello MD [address] [place] [address] General Surgery 10/13/21 Emilie Jauregui PA-C [address] [facility] [place], [place] 6090[phone] Specialty Learning And Development Manager Pulmonary and Critical Care Medicine 10/13/21 Ryan May MD [address] [place] [address] Specialty Learning And Development Manager Vascular Surgery 10/13/21 Geronimo Medina DO [address] [place] [address] Bevel Polisher Cardiology 10/13/21 Tamika Canales [facility] Australian Rules Footballer 09/26/17 Team Status: Active Member Role Status [...] Star t: August 29, 2024 Dr. Elton Mooer MD Other Provider Active Start: August 29, [...] November 05, 2024 End: November 05, 2024 Construction Scheduler Relationship Specialty Start Date End Date Daija Morton MD [address] [place], [place] 851161 PCP - General Internal Medicine 03/21/17 Kaye Ortega MD [address] [facility] [place] [address] General Surgery 09/21/21 Ye Coello MD [address] [place] [address] General Surgery 10/13/21 Emilie Jauregui, PA-C [address] [place], [place] 718171 Specialty Learning And Development Manager Pulmonary and Critical Care Medicine 10/13/21 Ryan May MD [address] [place], [place] 6449995 Specialty Learning And Development Manager Vascular Surgery 10/13/21 Geronimo Medina DO [address] [place] [address] Bevel Polisher Cardiology 10/13/21 Anjel Braga APRN.SPECIALIST ICU [address] [place], [place] 583841 Care Center Manager Internal Medicine 05/26/24 Tamika Canales [facility] Australian Rules Footballer 09/26/17 Construction Scheduler Relationship Specialty Start Date End Date Daija Morton MD [address] [place], [place] 498601 PCP - General Internal Medicine 03/21/17 Kaye Ortega MD [address] [place] [address] General Surgery 09/21/21 Ye Coello MD [address] [place], [place] 835745 General Surgery 10/13/21 Emilie Jauregui PA-C [address] [place], [place] 71487691 Specialty Learning And Development Manager Pulmonary and Critical Care Medicine 10/13/21 Ryan May MD [address] [place], [place] 0138195 Specialty Learning And Development Manager Vascular Surgery 10/13/21 Geronimo Medina DO [address] [place] [address] Bevel Polisher Cardiology 10/13/21 Anjel Braga APRN.SPECIALIST ICU [address] [place], [place] 930891 Care Center Manager Internal Medicine 05/26/24 Tamika Almaguer [facility] Australian Rules Footballer 09/26/17 Construction Scheduler Relationship Specialty Start Date End Date Daija Morton MD [address] [place], [place] [address] PCP - General Internal Medicine 03/21/17 Kaye Ortega MD [address] [place] [id number] General Surgery 09/21/21 Ye Coello MD [address] [place], [place] [id number] General Surgery 10/13/21 Emilie Jauregui, PA-C [address] [place], [place] [address] Specialty Learning And Development Manager Pulmonary and Critical Care Medicine 10/13/21 Ryan May MD [address] [place] [address] Specialty Learning And Development Manager Vascular Surgery 10/13/21 Geronimo Medina DO [address] [place] [address] Bevel Polisher Cardiology 10/13/21 Anjel Braga APRN.SPECIALIST ICU [address] [place] [address] Care Center Manager Internal Medicine 05/26/24 Tamika Almaguer [employer] Australian Rules Footballer 09/26/17 Construction Scheduler Relationship Specialty Start Date End Date Daija Morton MD [address] [place], [place] [id number] PCP - General Internal Medicine 03/21/17 Kaye Ortega MD [address] [place] [address] General Surgery 09/21/21 Ye Coello MD [address] [place], [place] [address] General Surgery 10/13/21 Emilie Jauregui PA-C [address], [place] [address] Specialty Learning And Development Manager Pulmonary and Critical Care Medicine 10/13/21 Ryan May MD [address] [place] [address] Specialty Learning And Development Manager Vascular Surgery 10/13/21 Geronimo Medina DO [address] [place] [address] Bevel Polisher Cardiology 10/13/21 Anjel Braga APRN.SPECIALIST ICU [address] [place] [address] Care Center Manager Internal Medicine 05/26/24 Tamika Almaguer [employer] Australian Rules Footballer 09/26/17 Construction Scheduler Relationship Specialty Start Date End Date Daija Morton MD [address] [place] [address] PCP - General Internal Medicine 03/21/17 Kaye Ortega MD [address] [place] [address] General Surgery 09/21/21 Ye Coello MD [address] [place] [address] General Surgery 10/13/21 Emilie Jauregui PA-C [address] [place], [place] [address] Specialty Learning And Development Manager Pulmonary and Critical Care Medicine 10/13/21 Ryan May MD [address] [place] [address] Specialty Learning And Development Manager Vascular Surgery 10/13/21 Geronimo Medina DO [address] [place] [address] Bevel Polisher Cardiology 10/13/21 Anjel Braga APRN.SPECIALIST ICU [address] [place] [address] Care Center Manager Internal Medicine 05/26/24 Tamika Almaguer [facility] Australian Rules Footballer 09/26/17 Construction Scheduler Relationship Specialty Start Date End Date Daija Morton MD [address] [place] [address] PCP - General Internal Medicine 03/21/17 Kaye Orteag MD [address] [place] [phone] General Surgery 09/21/21 Ye Coello MD [address] [place] [address] General Surgery 10/13/21 Emilie Jauregui PA-C [address] [place], [place] [id number] Specialty Learning And Development Manager Pulmonary and Critical Care Medicine 10/13/21 Ryan May MD [address] [facility] [place] [address] Specialty Learning And Development Manager Vascular Surgery 10/13/21 Geronimo Medina DO [address] [place] [address] Bevel Polisher Cardiology 10/13/21 Anjel Braga APRN.SPECIALIST ICU [address] [place], [place] [id number] Care Center Manager Internal Medicine 05/26/24 [facility] Australian Rules Footballer 09/26/17 Team Status: Active Member Role/Relationship Status [...] Active Member Role/Relationship Status Dates Dr. Daija Mroton MD Primary Care Provider Active Start: August [...] Provider Active Start : December 16, 2024 Construction Scheduler Relationship Specialty Start Date End Date Daija Morton MD [address] [place], [place] [address] PCP - General Internal Medicine 03/21/17 aKye Ortega MD [address] [place] [phone] General Surgery 09/21/21 Ye Coello MD [address] [place], [place] [address] General Surgery 10/13/21 Emilie Jauregui PA-C [address] [place], [place] [address] Specialty Learning And Development Manager Pulmonary and Critical Care Medicine 10/13/21 Ryan May MD [address] [place] [address] Specialty Learning And Development Manager Vascular Surgery 10/13/21 Geronimo Medina DO [address] [place] [address] Bevel Polisher Cardiology 10/13/21 Anjel Braga APRN.SPECIALIST ICU [address] [place], [place] [address] Care Center Manager Internal Medicine 05/26/24 Tamika Almaguer [employer] Australian Rules Footballer 09/26/17 Construction Scheduler Relationship Specialty Start Date End Date Daija Morton MD [address] [place] [address] PCP - General Internal Medicine 03/21/17 Kaye Ortega MD [address] [place] [phone] General Surgery 09/21/21 Ye Coello MD [address] [place] [address] General Surgery 10/13/21 Emilie Jauregui, PANeshaC [address], [place] [address] Specialty Learning And Development Manager Pulmonary and Critical Care Medicine 10/13/21 Ryan May MD [address] [place] [address] Specialty Learning And Development Manager Vascular Surgery 10/13/21 Geronimo Medina DO [address] [place] [address] Bevel Polisher Cardiology 10/13/21 Anjel Braga APRN.SPECIALIST ICU [address] [place] [address] [facility] Internal Medicine 05/26/24 Tamika Ally HARRELL Australian Rules Footballer 09/26/17 Team Status: Active Member Role/Relationship Status Dates Dr. Daija Morton MD Primary Care Provider Active Start: December 17, 2024 Dr. Seth Pritchard DO Emergency Provider Active Start: December 17, 2024 Dr. Roman Patel DO Admit Provider Active Start: December 17, 2024 Dr. Roman Patel DO Attending Provider Active Start: December 17, 2024 Construction Scheduler Relationship Specialty Start Date End Date Daija Morton MD [address] [place] [address] PCP - General Internal Medicine 03/21/17 Kaye Ortega MD [address] [place] [address] General Surgery 09/21/21 Ye Coello MD [address] [place], [place] [address] General Surgery 10/13/21 Emilie Jauregui PANeshaC [address] [place], [place] [address] Specialty Learning And Development Manager Pulmonary and Critical Care Medicine 10/13/21 Ryan May MD [address] [place] [address] Specialty Learning And Development Manager Vascular Surgery 10/13/21 Geronimo Medina DO [address] [place] [address] Bevel Polisher Cardiology 10/13/21 Anjel Braga APRN.SPECIALIST ICU [address] [place], [place] [address] Care Center Manager Internal Medicine 05/26/24 Tamika HARRELL Australian Rules Footballer 09/26/17 Team Status: Inactive Member Role/Relationship Status [...] Sta rt: December 18, 2024 Dr. Kami Bloton MD Other Provider Active Start : December [...] Active Start : December 23, 2024 Dr. Macro Hutchinson MD Other Provider Active Start: December [...] St art: December 23, 2024 Dr. Billy Gaol MD Other Provider Active Star t: December [...] Active Start: December 24, 2024 Dr. Aung Perse MD Other Provider Active Start: December 24, [...] Active Start: December 25, 2024 Dr. Shilpa Cnotreras MD Other Provider Active St art: December [...] Provider Active Start : December 26, 2024 Construction Scheduler Relationship Specialty Start Date End Date Daija Morton MD [address] [place], [place] [address] PCP - General Internal Medicine 03/21/17 Kaye Ortega MD [address] [place] [phone] General Surgery 09/21/21 Ye Coello MD [address] [place] [address] General Surgery 10/13/21 Emilie Jauregui, PA-C [address] [place] [address] Specialty Learning And Development Manager Pulmonary and Critical Care Medicine 10/13/21 Ryan May MD [address] [place] [address] Specialty Learning And Development Manager Vascular Surgery 10/13/21 Geronimo Medina DO [address] [place] [address] Bevel Polisher Cardiology 10/13/21 Anjel Braga APRN.SPECIALIST ICU [address] [place], [place] [address] Care Center Manager Internal Medicine 05/26/24 Tamika Almaguer [facility] Australian Rules Footballer 09/26/17 Team Status: Active Member Role/Relationship Status [...] St art: December 16, 2024 Dr. Shilpa Cnotreras MD Other Provider Active St art: December [...] 2025 End: January 08, 2025 Dr. Lorraine Mean MD Primary Care Provider [...] Provider Active S tart: January 08, 2025 Construction Scheduler Relationship Specialty Start Date End Date Daija Morton MD [address] [place] [address] PCP - General Internal Medicine 03/21/17 Kaye Ortega MD [address] [place] [address] General Surgery 09/21/21 Ye Coello MD [address] [place] [address] General Surgery 10/13/21 Emilie Jauregui, PA-C [address] [place], [place] [address] Specialty Learning And Development Manager Pulmonary and Critical Care Medicine 10/13/21 Ryan May MD [address] [place] [address] Specialty Learning And Development Manager Vascular Surgery 10/13/21 Geronimo Medina DO [address] [place] [address] Bevel Polisher Cardiology 10/13/21 Anjel Braga APRN.SPECIALIST ICU [address] [place], [place] [address] Care Center Manager Internal Medicine 05/26/24 Tamika Almaguer [facility] Australian Rules Footballer 09/26/17 Team Status: Active Member Role/Relationship Status [...] Other Provider Active Start: December 23, 2024 Chrysatl Collier MD Other Provider Active Start : [...] Active St art: December 23, 2024 Dr. Lsiha Talamantes DO Referring Provider Active S tart: [...] Provider Active Start: December 24, 2024 Dr. oGgo Gill MD Other Provider [...] End: January 09, 2025 Josefa Doss NP, RN UNIT MANAGER-C Attending Provider Active Start: January 09, [...] 2025 End: January 09, 2025 Josefa Doss RN UNIT MANAGER, RN UNIT MANAGER-C Attending Provider Active Start: January 09, [...] 2025 End: January 23, 2025 Hannah Busch RN UNIT MANAGER-C Attending Provider Active S tart: January [...] End: December 27, 2024 Josefa Doss NP RN UNIT MANAGER-C Attending Provider Active Start: December 27, [...] Status: Inactive Member Role/Relationship Status Dates Dr. Lorraien Mena MD Primary Care Provider Active Start: January 09, 2025 End: January 09, 2025 Josefa Doss RN UNIT MANAGER, RN UNIT MANAGER-C Attending Provider Active Start: January 09, [...] 18, 2024 End: December 26, 2024 Dr. iLsha Talamantes DO Other Provider Active Start : [...] Other Provider Active Start: December 20, 2024 Aym Chun MD Other Provider Active Start : [...] Provider Active Start: December 21, 2024 Amy Chnu MD Other Provider Active Start : December [...] Active St art: December 22, 2024 Dr. aDylin Schmitt MD Other Provider Active Start : [...] Provider Active Start: December 23, 2024 JOSETTE AYNG MD Other Provider Active Start: 2024 Angelo [...] 2024 End: December 27, 2024 Josefa Doss RN UNIT MANAGER, RN UNIT MANAGER-C Attending Provider Active Start: December 27, [...] 2025 End: February 04, 2025 Josefa Doss RN UNIT MANAGER, RN UNIT MANAGER-C Attending Provider Active Start: February 04, [...] BE BASED ON THE PRIMARY CLINICAL RECORDS. [facility]. provides no warranty or guarantee of the accuracy or completeness of information in this document.
--- NOTE | 2025-05-03 21:40 | ED.RN ---
[facility] no [facility].
[2025-05-03 23:12] LABS: Procalcitonin 0.12 ng/mL (<=0.10)
[2025-05-03] MEDS: APIXABAN 5 MG TABLET GT (23:20)
[2025-05-03] MEDS: carBAMazepine 200 MG/10 ML UDC (WCH) GT (23:21)
[2025-05-03 23:48] LABS: Troponin T High Sens 4 HR 32 ng/L (<=22)
[2025-05-04] VITALS (19 sets, daily range): BP systolic 99–146; BP diastolic 52–84; PULSE 67–98; RESP 20–24; TEMP 36.2–36.9; O2SAT 92–100; BMI 17.4
[2025-05-04] MEDS: Pivot 1.5 Cal 1,000 ML BOTTLE GT ×5 (01:43→21:56)
[2025-05-04 04:00] LABS: Hematocrit 34.0 % (40-54); Hemoglobin 10.0 g/dL (13.0-16.5); Immature Granulocytes Count 0.070 X10^3/uL (0.0-0.0); Mean Corp Hgb Conc 29.4 g/dL (32-36); Mean Corpuscular Volume 85.4 fL (80-94); Mean Platelet Vol. 9.9 fl (6.2-12.0); NRBC Flagged by Analyzer 0 % (0-5); POSITIVE DIFFERENTIAL YES; Platelet Count 525 K/mm3 (150-450); RBC Distribution Width CV 17.5 % (11.6-14.6); RBC Distribution Width SD 55.0 fl (35.1-43.9); Red Blood Count 3.98 M/mm3 (4.6-6.2); White Blood Count 14.3 K/mm3 (4.4-11.0)
[2025-05-04 04:25] LABS: AST(SGOT) 37 U/L (<=37); Alanine Aminotransfer ALT/SGPT 38 U/L (<=46); Albumin, Serum 3.8 g/dL (3.4-4.8); Alkaline Phosphatase 90 U/L (40-129); Anion Gap 12 (5-15); BUN 32 mg/dL (4-19); BUN/Creat Ratio 25.0 RATIO (10-20); Calcium,Total 9.0 mg/dL (7.6-11.0); Carbon Dioxide 23.7 mmol/L (21.0-32.0); Chloride 102 mmol/L (98-108); Estimated Creatinine Clearance 40.94 ml/min (50-250); Globulin 3.7 g/dL (2.2-4.2); Glucose 169 mg/dL (70-99); Potassium 5.0 mmol/L (3.3-5.1)
[2025-05-04] MEDS: 0.9% Saline Lock 10 ML Syringe IV (06:09)
--- NOTE | 2025-05-04 09:24 | PCM.PN.HOSP ---
Subjective Subjective No new issues overnight, maintaining oxygen saturations on 5 L nasal cannula Objective Data Objective Data Vital Signs: Vital Signs Temp Pulse Resp BP Pulse Ox O2 Del Method O2 Flow Rate 98.4 F 87 22 H 99/83 H 97 High Flow 5 05/04/25 04:00 05/04/25 07:01 05/04/25 07:01 05/04/25 06:06 05/04/25 07:49 05/04/25 08:25 05/04/25 08:25 FiO2 45 05/04/25 07:01 Oxygen Flow Rate (L/min) 5 Oxygen Delivery Method High Flow Weight: 128 lb 15.527 oz Body Mass Index (BMI) 17.4 Intake & Output: Intake and Output for Last 24 Hours 05/03/25 05/04/25 05/05/25 03:59 03:59 03:59 Intake Total 540 / 540 Output Total 75 / 75 300 / 300 Balance 465 / 465 -300 / -300 Lab / Micro Data 05/04/25 03:48 05/04/25 03:48 Labs: Laboratory Results - last 24 hr 05/03/25 18:10: WBC 10.8, RBC 4.09 L, Hgb 10.4 L, Hct 35.0 L, MCV 85.6, MCH 25.4 L, MCHC 29.7 L, RDW Std Deviation 55.7 H, RDW Coeff of Aly 17.8 H, Plt Count 488 H, MPV 10.1, Immature Gran % (Auto) 0.300, Neut % (Auto) 81.6 H, Lymph % (Auto) 9.9 L, [place] % (Auto) 6.9, Eos % (Auto) 0.7, Baso % (Auto) 0.6, Absolute Neuts (auto) 8.8 H, Absolute Lymphs (auto) 1.07, Nucleated RBC % 0, Sodium 142, Potassium 4.1, Chloride 102, Carbon Dioxide 27.3, Anion Gap 12, BUN 36 H, Creatinine 1.42 H, Estim Creat Clear Calc 38.97 L, Est GFR (MDRD) Non-Af 52 L, BUN/Creatinine Ratio 25.5 H, Glucose 126 H, Calcium 9.9, Magnesium 2.2, Troponin T High Sens 41 H D 05/03/25 20:40: Troponin T Hi Sens 2 Hr 34 H, Procalcitonin 0.12 H 05/03/25 23:09: Troponin T Hi Sens 4Hr 32 H 05/04/25 03:48: WBC 14.3 H, RBC 3.98 L, Hgb 10.0 L, Hct 34.0 L, MCV 85.4, MCH 25.1 L, MCHC 29.4 L, RDW Std Deviation 55.0 H, RDW Coeff of Aly 17.5 H, Plt Count 525 H, MPV 9.9, Immature Gran % (Auto) 0.500, Neut % (Auto) 96.4 H, Lymph % (Auto) 2.1 L, [place] % (Auto) 0.9, Eos % (Auto) 0.0, Baso % (Auto) 0.1, Absolute Neuts (auto) 13.8 H, Absolute Lymphs (auto) 0.30 L, Nucleated RBC % 0, Sodium 138, Potassium 5.0, Chloride 102, Carbon Dioxide 23.7, Anion Gap 12, BUN 32 H, Creatinine 1.29 H, Estim Creat Clear Calc 40.94 L, Est GFR (MDRD) Non-Af 58 L, BUN/Creatinine Ratio 25.0 H, Glucose 169 H, Calcium 9.0, Total Bilirubin 0.15, AST 37, ALT 38, Alkaline Phosphatase 90, Total Protein 7.6, Albumin 3.8, Globulin 3.7, Albumin/Globulin Ratio 1.0 Micro: Microbiology 05/03/25 21:13 Mucosa - Nasopharyngeal Respiratory Panel (PCR) - Final 05/03/25 18:31 Mucosa - Nose SARS-CoV-2, Influenza & RSV (PCR) - Final ABG Data ABG results: ABG 05/03/25 18:25 Specimen Type LASHAE Sample Site Not entered O2 % 55.0 VBG pH 7.41 VBG pO2 27 VBG HCO3 28 H VBG Total CO2 30 VBG O2 Sat (Calc) 51 VBG Base Excess 3 POC Mix VBG pCO2 Pt Tmp 44.6 O2 Delivery Device CPAP Clinical Comments Airvo 45L 55% Radiography Diagnostic Testing: Radiology Impression Chest CTA 05/03/25 17:47 IMPRESSION: 1. Negative for pulmonary embolus. 2. Spiculated density in the left upper lobe. If possible consider correlation with PET-CT. No prior studies. At a food products sales representative level on image 136, this measures 31 x 22 mm with neoplasm to be excluded Reading Location: [facility] Physical Exam Narrative General: Drowsy, responds to voice, Cooperative, No apparent distress HEENT: Atraumatic, PERRLA, EOMI, Normocephalic Oral: Moist Mucosa Neck: Supple, No JVD Lungs: Diminished, Normal air movement, No rhonchi, scattered wheeze, No rales Cardiovascular: Regular rate, Regular Rhythm, Normal S1, Normal S2, No murmurs Abdomen: Soft, Non Tender, Non-Distended, No Hepato-splenomegaly, PEG tube intact Extremities: No edema, Capillary Refill Less than 3 Seconds Skin: No rashes, No breakdown Musculoskeletal: No Tenderness to Palpation of Joints or Extremities Neurological: Chronic baseline neurological dysfunction Psych/Mental Status: Flat Assessment & Plan Assessment/Plan (1) COPD with exacerbation: PLAN: Plan 1. Acute on chronic hypoxic respiratory failure secondary to COPD/asthma exacerbation ? Imaging does demonstrate an incidental spiculated mass that he will need outpatient follow-up for ? Continue with inhalers ? Continue with steroids ? Troponin elevations are insignificant secondary to his worsening hypoxia 2. Essential HTN/HLD/paroxysmal A-fib/history of CVA ? Blood pressure stable ? Continue with his blood pressure medications ? Continue with his cholesterol medications ? Will monitor make adjustments as necessary ? Continue with Eliquis ? He does have continued neurological changes from his CVA, PEG tube is intact 3. GERD ? Stable ? Continue with PPI 4. Anxiety/depression ? Stable ? Continue with his home medications 5. Seizure disorder ? Stable ? Continue with his home medications 6. BPH with obstruction ? Stable ? Continue with his home medications DVT: Eliquis Charges/Coding Visit Charges Inpatient E&M: 78808 Subs Hosp L2
[2025-05-04] MEDS: carBAMazepine 200 MG/10 ML UDC (WCH) GT ×4 (09:33→21:41)
[2025-05-04] MEDS: Thiamine Hydrochloride 100 MG Tablet GT (09:35)
[2025-05-04] MEDS: APIXABAN 2.5 MG TABLET (WCH) GT ×2 (09:37→21:41)
[2025-05-05] VITALS (16 sets, daily range): BP systolic 127–149; BP diastolic 53–81; PULSE 70–87; RESP 18–26; TEMP 36.2–37.4; O2SAT 83–99; BMI 17.4
--- NOTE | 2025-05-05 02:18 | PCM.HOSP.N ---
Hospitalist Note Patient with onset notably foul smelling diarrhea, will obtain cdiff and enteric. Additionally, again with recurrent agitation, will given low dose seroquel 25 mg x 1.
[2025-05-05] MEDS: Pivot 1.5 Cal 1,000 ML BOTTLE GT ×5 (03:20→23:16)
[2025-05-05 04:05] LABS: Hematocrit 33.3 % (40-54); Hemoglobin 9.7 g/dL (13.0-16.5); Immature Granulocytes Count 0.100 X10^3/uL (0.0-0.0); Mean Corp Hgb Conc 29.1 g/dL (32-36); Mean Corpuscular Volume 86.0 fL (80-94); Mean Platelet Vol. 10.3 fl (6.2-12.0); NRBC Flagged by Analyzer 0 % (0-5); POSITIVE DIFFERENTIAL YES; Platelet Count 506 K/mm3 (150-450); RBC Distribution Width CV 17.7 % (11.6-14.6); RBC Distribution Width SD 55.3 fl (35.1-43.9); Red Blood Count 3.87 M/mm3 (4.6-6.2); White Blood Count 18.2 K/mm3 (4.4-11.0)
[2025-05-05 04:30] LABS: Anion Gap 10 (5-15); BUN 42 mg/dL (4-19); BUN/Creat Ratio 35.2 RATIO (10-20); Calcium,Total 9.4 mg/dL (7.6-11.0); Carbon Dioxide 26.0 mmol/L (21.0-32.0); Chloride 104 mmol/L (98-108); Estimated Creatinine Clearance 44.38 ml/min (50-250); Glucose 153 mg/dL (70-99); Potassium 4.7 mmol/L (3.3-5.1)
[2025-05-05] MEDS: 0.9% Saline Lock 10 ML Syringe IV ×3 (05:38→21:36)
[2025-05-05] MEDS: APIXABAN 2.5 MG TABLET (WCH) GT ×2 (08:28→21:26)
[2025-05-05] MEDS: Thiamine Hydrochloride 100 MG Tablet GT (08:28)
[2025-05-05] MEDS: carBAMazepine 200 MG/10 ML UDC (WCH) GT ×4 (08:29→21:38)
--- NOTE | 2025-05-05 10:00 | CASEMGMT ---
Per nursing and hospitalist patient is confused. SEYMOUR BOLES called HPOA, Giovana, to discuss plans at discharge. Per Giovana, she and her daughter are unhappy with patient's care at [facility] and would like patient to go to [facility] at discharge. Giovana declined SNF list at this time. Giovana gave permission to call patient's daughter Michelle is clarify timeline and how patient was admitted to [facility] from [facility]. Giovana had no further questions or concerns. SEYMOUR BOLES attempted to call daughter Michelle, no answer, voicemail left with return contact information. CM will continue to follow this patient and plan for a safe discharge.
--- NOTE | 2025-05-05 11:06 | PN.HOSP_ITS ---
Subjective Subjective Currently up to 7 L nasal cannula, still little bit confused Objective Data Objective Data Vital Signs: Vital Signs Temp Pulse Resp BP Pulse Ox O2 Del Method O2 Flow Rate 97.5 F L 71 24 H 127/58 H 97 High Flow 7 05/05/25 08:40 05/05/25 08:40 05/05/25 08:40 05/05/25 08:40 05/05/25 08:40 05/05/25 08:40 05/05/25 08:40 FiO2 45 05/04/25 07:01 Oxygen Flow Rate (L/min) 7 Oxygen Delivery Method High Flow Weight: 128 lb 4.944 oz Body Mass Index (BMI) 17.4 Intake & Output: Intake and Output for Last 24 Hours 05/04/25 05/05/25 05/06/25 03:59 03:59 03:59 Intake Total 540 / 540 200 / 200 Output Total 75 / 75 600 / 600 Balance 465 / 465 -400 / -400 Medical Nutrition Assessment Dietitian: Malnutrition Criteria Met Start: 05/04/25 14:56 Freq: Status: Active Protocol: Document 05/04/25 14:56 RMA (Rec: 05/04/25 14:56 RMA [id number]) Nutrition Malnutrition Evidence of Yes Malnutrition Exists Malnutrition (severe Chronic ): Evidenced By Suboptimal Energy Intake (Severe),Weight Loss (Severe), Physical Changes (Severe) Clinical Problem Chronic Disease or Condition Related Malnutrition Etiology Severe protein-calorie malnutrition in the context of chronic disease related to inadequate energy intake, increased energy expenditure and swallowing difficulty Signs/Symptoms as evidenced by BMI 17.5, NPO with PEG tube feeding for nutrition, ~10% unintentional weight loss x 6 months, muscle wasting and fat depletion in the clavicle, face, arms ad legs. Status Active Problem Recommendation Dietitian Will continue home regimen for enteral nutrition Recommendations/ support as ordered. Changes Pt is NPO/dysphagia and enteral nutrition support to meet ~100% estimated nutrition needs. Continue Pivot 1.5 Alex via PEG tube: 300mL bolus 5 times per day with 100mL water flush before and after each bolus. TF and water flushes provide 2250 kcal, 140.7 gm pro and 2125 mL free water. Trend weight; TF as ordered promotes weight gain. Lab / Micro Data 05/05/25 03:40 05/05/25 03:40 Labs: Laboratory Results - last 24 hr 05/05/25 03:40: WBC 18.2 H, RBC 3.87 L, Hgb 9.7 L, Hct 33.3 L, MCV 86.0, MCH 25.1 L, MCHC 29.1 L, RDW Std Deviation 55.3 H, RDW Coeff of Aly 17.7 H, Plt Count 506 H, MPV 10.3, Immature Gran % (Auto) 0.500, Neut % (Auto) 92.3 H, Lymph % (Auto) 3.0 L, [place] % (Auto) 4.1, Eos % (Auto) 0.0, Baso % (Auto) 0.1, Absolute Neuts (auto) 16.8 H, Absolute Lymphs (auto) 0.54 L, Nucleated RBC % 0, Sodium 140, Potassium 4.7, Chloride 104, Carbon Dioxide 26.0, Anion Gap 10, BUN 42 H, Creatinine 1.19, Estim Creat Clear Calc 44.38 L, Est GFR (MDRD) Non-Af 64, B UN/Creatinine Ratio 35.2 H, Glucose 153 H, Calcium 9.4 Micro: Microbiology 05/03/25 21:13 Mucosa - Nasopharyngeal Respiratory Panel (PCR) - Final 05/03/25 18:31 Mucosa - Nose SARS-CoV-2, Influenza & RSV (PCR) - Final Physical Exam Narrative General: Alert, disoriented, Cooperative, No apparent distress HEENT: Atraumatic, PERRLA, EOMI, Normocephalic Oral: Moist Mucosa Neck: Supple, No JVD Lungs: Diminished, Normal air movement, No rhonchi, scattered wheeze, No rales Cardiovascular: Regular rate, Regular Rhythm, Normal S1, Normal S2, No murmurs Abdomen: Soft, Non Tender, Non-Distended, No Hepato-splenomegaly, PEG tube intact Extremities: No edema, Capillary Refill Less than 3 Seconds Skin: No rashes, No breakdown Musculoskeletal: No Tenderness to Palpation of Joints or Extremities Neurological: Chronic baseline neurological dysfunction Psych/Mental Status: Flat Assessment & Plan Assessment/Plan (1) COPD with exacerbation: PLAN: Plan 1. Acute on chronic hypoxic respiratory failure secondary to COPD/asthma exacerbation ? Imaging does demonstrate an incidental spiculated mass that he will need outpatient follow-up for ? Continue with inhalers ? Continue with steroids, leukocytosis is up due to the steroids ? Troponin elevations are insignificant secondary to his worsening hypoxia ? Respiratory panel was negative 2. Essential HTN/HLD/paroxysmal A-fib/history of CVA ? Blood pressure stable ? Continue with his blood pressure medications ? Continue with his cholesterol medications ? Will monitor make adjustments as necessary ? Continue with Eliquis ? He does have continued neurological changes from his CVA, PEG tube is intact 3. GERD ? Stable ? Continue with PPI 4. Anxiety/depression ? Stable ? Continue with his home medications 5. Seizure disorder ? Stable ? Continue with his home medications 6. BPH with obstruction ? Stable ? Continue with his home medications DVT: Victorino Charges/Coding Visit Charges Inpatient E&M: 86023 Subs Hosp L2
--- NOTE | 2025-05-05 13:00 | CASEMGMT ---
SEYMOUR BOLES received call back from daughter Michelle. Michelle states that patient was at [facility] and would need to be transitioned to LTC and [facility] did not have any LTC beds available. Per Michelle they had sent referrals to [facility] and [facility] and that [facility] was able to accept the patient. Michelle states that her and Giovana at not happy with the care that patient is receiving at [facility] and would like referral sent to [facility]. SEYMOUR BOLES updated Michelle on conversation with Giovana. Michelle had no further questions or concerns. SEYMOUR BOLES updated by nurse that HPDUYEN, Giovana at bedside. SEYMORU BOLES in to discuss discharge planning with Giovana and patient. Patient is alert but not oriented. SEYMOUR BOLES updated Giovana regarding conversation with Michelle. Since patient is not oriented per nursing and hospitalist, CM will defer to HPOA to make decision. Giovana requested referral be sent to [facility]. Giovana had no further questions or concerns at this time. SEYMOUR BOLES updated DC senior planning manager to send referral to [facility]. CM will continue to follow this patient and plan for a safe discharge.
--- NOTE | 2025-05-05 13:35 | CASEMGMT ---
Addendum entered by Jacquie Michaud 05/05/25 15:24: [facility] has accepted and will submit for precert. SEYMOUR CM updated. Jacquie Michaud DC Planning Asst. Original Note: Discharge Planning Referral sent via [facility] to [facility]. Jacquie Michaud DC Planning Asst.
[2025-05-05] MEDS: MELATONIN 3 MG TABLET GT (21:25)
--- NOTE | 2025-05-05 22:16 | NURSING ---
Ex- called in states she has been unable to locate a ride, she had forgotten she doesn't have a working car to drive in and she recently broke her leg. Assured her we have a staff member watching him closely and we did not restrain him for now. Ex- states if we need to restrain him to keep him and us safe she is ok with it if it is needed. Informed her we will keep them updated if it is needed. However she does not need to come sit with him at this time.
[2025-05-06] VITALS (13 sets, daily range): BP systolic 122–154; BP diastolic 50–72; PULSE 60–80; RESP 18–22; TEMP 36.2–37.2; O2SAT 94–98
[2025-05-06] MEDS: Pivot 1.5 Cal 1,000 ML BOTTLE GT ×5 (03:26→23:18)
[2025-05-06] MEDS: 0.9% Saline Lock 10 ML Syringe IV ×3 (05:37→23:05)
[2025-05-06 06:43] LABS: Hematocrit 31.5 % (40-54); Hemoglobin 9.3 g/dL (13.0-16.5); Immature Granulocytes Count 0.110 X10^3/uL (0.0-0.0); Mean Corp Hgb Conc 29.5 g/dL (32-36); Mean Corpuscular Volume 85.6 fL (80-94); Mean Platelet Vol. 10.2 fl (6.2-12.0); NRBC Flagged by Analyzer 0 % (0-5); Platelet Count 470 K/mm3 (150-450); RBC Distribution Width CV 17.7 % (11.6-14.6); RBC Distribution Width SD 55.6 fl (35.1-43.9); Red Blood Count 3.68 M/mm3 (4.6-6.2); White Blood Count 16.3 K/mm3 (4.4-11.0)
[2025-05-06 07:07] LABS: Anion Gap 11 (5-15); BUN 47 mg/dL (4-19); BUN/Creat Ratio 41.5 RATIO (10-20); Calcium,Total 9.5 mg/dL (7.6-11.0); Carbon Dioxide 25.4 mmol/L (21.0-32.0); Chloride 105 mmol/L (98-108); Estimated Creatinine Clearance 46.91 ml/min (50-250); Glucose 137 mg/dL (70-99); Potassium 4.5 mmol/L (3.3-5.1)
--- NOTE | 2025-05-06 10:06 | PCM.PN.HOSP ---
Subjective Subjective No issues overnight, no changes condition Objective Data Objective Data Vital Signs: Vital Signs Temp Pulse Resp BP Pulse Ox O2 Del Method O2 Flow Rate 98.2 F 67 18 128/57 H 98 Nasal Cannula 4 05/06/25 04:00 05/06/25 05:35 05/06/25 04:00 05/06/25 04:00 05/06/25 09:20 05/06/25 09:20 05/06/25 09:20 FiO2 45 05/04/25 07:01 Oxygen Flow Rate (L/min) 4 Oxygen Delivery Method Nasal Cannula Weight: 128 lb 4.944 oz Body Mass Index (BMI) 17.4 Intake & Output: Intake and Output for Last 24 Hours 05/05/25 05/06/25 05/07/25 03:59 03:59 03:59 Intake Total 200 / 200 100 / 200 100 / 100 Output Total 600 / 600 1 / Balance -400 / -400 100 / 200 99 / 99 Medical Nutrition Assessment Dietitian: Malnutrition Criteria Met Start: 05/04/25 14:56 Freq: Status: Active Protocol: Document 05/04/25 14:56 RMA (Rec: 05/04/25 14:56 RMA [id number]) Nutrition Malnutrition Evidence of Yes Malnutrition Exists Malnutrition (severe Chronic ): Evidenced By Suboptimal Energy Intake (Severe),Weight Loss (Severe), Physical Changes (Severe) Clinical Problem Chronic Disease or Condition Related Malnutrition Etiology Severe protein-calorie malnutrition in the context of chronic disease related to inadequate energy intake, increased energy expenditure and swallowing difficulty Signs/Symptoms as evidenced by BMI 17.5, NPO with PEG tube feeding for nutrition, ~10% unintentional weight loss x 6 months, muscle wasting and fat depletion in the clavicle, face, arms ad legs. Status Active Problem Recommendation Dietitian Will continue home regimen for enteral nutrition Recommendations/ support as ordered. Changes Pt is NPO/dysphagia and enteral nutrition support to meet ~100% estimated nutrition needs. Continue Pivot 1.5 Alex via PEG tube: 300mL bolus 5 times per day with 100mL water flush before and after each bolus. TF and water flushes provide 2250 kcal, 140.7 gm pro and 2125 mL free water. Trend weight; TF as ordered promotes weight gain. Lab / Micro Data 05/06/25 06:19 05/06/25 06:19 Labs: Laboratory Results - last 24 hr 05/06/25 06:19: WBC 16.3 H, RBC 3.68 L, Hgb 9.3 L, Hct 31.5 L, MCV 85.6, MCH 25.3 L, MCHC 29.5 L, RDW Std Deviation 55.6 H, RDW Coeff of Aly 17.7 H, Plt Count 470 H, MPV 10.2, Immature Gran % (Auto) 0.700, Neut % (Auto) 88.0 H, Lymph % (Auto) 4.8 L, [place] % (Auto) 6.4, Eos % (Auto) 0.0, Baso % (Auto) 0.1, Absolute Neuts (auto) 14.4 H, Absolute Lymphs (auto) 0.78 L, Nucleated RBC % 0, Sodium 141, Potassium 4.5, Chloride 105, Carbon Dioxide 25.4, Anion Gap 11, BUN 47 H, Creatinine 1.12, Estim Creat Clear Calc 46.91 L, Est GFR (MDRD) Non-Af 69, BUN/Creatinine Ratio 41.5 H, Glucose 137 H, Calcium 9.5 Micro: Microbiology 05/03/25 21:13 Mucosa - Nasopharyngeal Respiratory Panel (PCR) - Final 05/03/25 18:31 Mucosa - Nose SARS-CoV-2, Influenza & RSV (PCR) - Final Physical Exam Narrative General: Alert, disoriented, Cooperative, No apparent distress HEENT: Atraumatic, PERRLA, EOMI, Normocephalic Oral: Moist Mucosa Neck: Supple, No JVD Lungs: Diminished, Normal air movement, No rhonchi, scattered wheeze, No rales Cardiovascular: Regular rate, Regular Rhythm, Normal S1, Normal S2, No murmurs Abdomen: Soft, Non Tender, Non-Distended, No Hepato-splenomegaly, PEG tube intact Extremities: No edema, Capillary Refill Less than 3 Seconds Skin: No rashes, No breakdown Musculoskeletal: No Tenderness to Palpation of Joints or Extremities Neurological: Chronic baseline neurological dysfunction Psych/Mental Status: Flat Assessment & Plan Assessment/Plan (1) COPD with exacerbation: PLAN: Plan 1. Acute on chronic hypoxic respiratory failure secondary to COPD/asthma exacerbation ? Imaging does demonstrate an incidental spiculated mass that he will need outpatient follow-up ? Continue with inhalers ? Continue with steroids, leukocytosis is up due to the steroids ? Troponin elevations are insignificant secondary to his worsening hypoxia ? Respiratory panel was negative 2. Essential HTN/HLD/paroxysmal A-fib/history of CVA ? Blood pressure stable ? Continue with his blood pressure medications ? Continue with his cholesterol medications ? Will monitor make adjustments as necessary ? Continue with Eliquis ? He does have continued neurological changes from his CVA, PEG tube is intact 3. GERD ? Stable ? Continue with PPI 4. Anxiety/depression ? Stable ? Continue with his home medications 5. Seizure disorder ? Stable ? Continue with his home medications 6. BPH with obstruction ? Stable ? Continue with his home medications DVT: Eliquis Charges/Coding Visit Charges Inpatient E&M: 45261 Subs Hosp L2
[2025-05-06] MEDS: APIXABAN 2.5 MG TABLET (WCH) GT ×2 (11:09→23:00)
[2025-05-06] MEDS: Thiamine Hydrochloride 100 MG Tablet GT (11:09)
[2025-05-06] MEDS: carBAMazepine 200 MG/10 ML UDC (WCH) GT ×4 (11:12→23:00)
--- NOTE | 2025-05-06 12:00 | CASEMGMT ---
Discharge Planning VM left for Admissions to obtain passr records. Jacquie Michaud DC Planning Asst.
[2025-05-07] VITALS (12 sets, daily range): BP systolic 131–170; BP diastolic 61–85; PULSE 57–77; RESP 16–18; TEMP 36.1–36.7; O2SAT 86–98; BMI 17.3; BMI 16.9
[2025-05-07] MEDS: Pivot 1.5 Cal 1,000 ML BOTTLE GT ×4 (05:00→20:18)
[2025-05-07] MEDS: 0.9% Saline Lock 10 ML Syringe IV ×2 (05:12→15:04)
[2025-05-07 06:13] LABS: Hematocrit 34.9 % (40-54); Hemoglobin 10.3 g/dL (13.0-16.5); Immature Granulocytes Count 0.230 X10^3/uL (0.0-0.0); Mean Corp Hgb Conc 29.5 g/dL (32-36); Mean Corpuscular Volume 84.7 fL (80-94); Mean Platelet Vol. 10.5 fl (6.2-12.0); NRBC Flagged by Analyzer 0.1 % (0-5); Platelet Count 518 K/mm3 (150-450); RBC Distribution Width CV 17.7 % (11.6-14.6); RBC Distribution Width SD 55.2 fl (35.1-43.9); Red Blood Count 4.12 M/mm3 (4.6-6.2); White Blood Count 16.9 K/mm3 (4.4-11.0)
[2025-05-07 06:50] LABS: Anion Gap 12 (5-15); BUN 48 mg/dL (4-19); BUN/Creat Ratio 51.2 RATIO (10-20); Calcium,Total 9.2 mg/dL (7.6-11.0); Carbon Dioxide 24.0 mmol/L (21.0-32.0); Chloride 105 mmol/L (98-108); Estimated Creatinine Clearance 55.12 ml/min (50-250); Glucose 145 mg/dL (70-99); Potassium 4.4 mmol/L (3.3-5.1)
--- NOTE | 2025-05-07 09:19 | CASEMGMT ---
Discharge Planning Updates sent via CarePort to [facility], including full passr records (7000, RR, DD determination/rule out). Jacquie Michaud DC Planning Asst.
[2025-05-07] MEDS: Thiamine Hydrochloride 100 MG Tablet GT (09:29)
[2025-05-07] MEDS: carBAMazepine 200 MG/10 ML UDC (WCH) GT ×4 (09:29→20:16)
[2025-05-07] MEDS: APIXABAN 2.5 MG TABLET (WCH) GT ×2 (09:29→20:17)
--- NOTE | 2025-05-07 10:14 | CASEMGMT ---
RN CM called and updated BARBARA Akhtar that [facility] was able to accept patient. Giovana voiced appreciation and asked RN CM to call and update daughter Michelle. Giovana had no further questions. RN CM called daughter Michelle and updated that [facility] was able to accept patient. Michelle had no further questions or concerns. CM will continue to follow this patient and plan for a safe discharge.
--- NOTE | 2025-05-07 15:39 | CASEMGMT ---
Discharge Planning Requested HC POA sent via CarePort to [facility]. Jacquie Michaud DC Planning Asst.
--- NOTE | 2025-05-07 15:42 | CASEMGMT ---
[facility] has obtained auth to admit. Pt must be sitter free for 24hrs. RN CM updated. Jacquie Michaud DC Planning Asst.
--- NOTE | 2025-05-07 19:25 | PCM.PN.HOSP ---
Reason for Visit Chief Complaint: Dyspnea, respiratory distress, hypoxia. Subjective Subjective Patient was seen and examined today, he appears to pull his oxygen off frequently and this has to be reapplied. Patient does not appear to be anxious or agitated at this time. I have elected to increase the patient's Seroquel, Ativan was requested by the patient's daughter for the patient, I prefer to increase patient's Seroquel first to see if this will help. We are awaiting preauthorization for the patient to go to a different intermediate nursing facility. Patient's oxygen was able to be weaned down to 2 L-I do not feel that we will be able to wean the oxygen off completely. It appears from his medical records he uses 2 L of oxygen at his previous intermediate care facility. Objective Data Objective Data Vital Signs: Vital Signs Temp Pulse Resp BP Pulse Ox O2 Del Method O2 Flow Rate 97.4 F L 57 L 16 131/63 H 93 Nasal Cannula 2 05/07/25 15:00 05/07/25 15:02 05/07/25 15:00 05/07/25 15:00 05/07/25 15:20 05/07/25 15:20 05/07/25 15:20 FiO2 45 05/04/25 07:01 Oxygen Flow Rate (L/min) 2 Oxygen Delivery Method Nasal Cannula Weight: 58 kg Body Mass Index (BMI) 17.3 Intake & Output: Intake and Output for Last 24 Hours 05/05/25 05/06/25 05/07/25 23:59 23:59 23:59 Intake Total 100 / 100 800 / 800 500 / 500 Output Total 450 / 450 Balance 100 / 100 799 / 799 50 / 50 Medical Nutrition Assessment Dietitian: Malnutrition Criteria Met Start: 05/04/25 14:56 Freq: Status: Active Protocol: Document 05/04/25 14:56 RMA (Rec: 05/04/25 14:56 RMA [id number]) Nutrition Malnutrition Evidence of Yes Malnutrition Exists Malnutrition (severe Chronic ): Evidenced By Suboptimal Energy Intake (Severe),Weight Loss (Severe), Physical Changes (Severe) Clinical Problem Chronic Disease or Condition Related Malnutrition Etiology Severe protein-calorie malnutrition in the context of chronic disease related to inadequate energy intake, increased energy expenditure and swallowing difficulty Signs/Symptoms as evidenced by BMI 17.5, NPO with PEG tube feeding for nutrition, ~10% unintentional weight loss x 6 months, muscle wasting and fat depletion in the clavicle, face, arms ad legs. Status Active Problem Recommendation Dietitian Will continue home regimen for enteral nutrition Recommendations/ support as ordered. Changes Pt is NPO/dysphagia and enteral nutrition support to meet ~100% estimated nutrition needs. Continue Pivot 1.5 Alex via PEG tube: 300mL bolus 5 times per day with 100mL water flush before and after each bolus. TF and water flushes provide 2250 kcal, 140.7 gm pro and 2125 mL free water. Trend weight; TF as ordered promotes weight gain. Lab / Micro Data 05/07/25 05:46 05/07/25 05:46 Labs: Laboratory Results - last 24 hr 05/07/25 05:46: WBC 16.9 H, RBC 4.12 L, Hgb 10.3 L, Hct 34.9 L, MCV 84.7, MCH 25.0 L, MCHC 29.5 L, RDW Std Deviation 55.2 H, RDW Coeff of Aly 17.7 H, Plt Count 518 H, MPV 10.5, Immature Gran % (Auto) 1.400 H, Neut % (Auto) 88.0 H, Lymph % (Auto) 4.4 L, [place] % (Auto) 6.1, Eos % (Auto) 0.0, Baso % (Auto) 0.1, Absolute Neuts (auto) 14.9 H, Absolute Lymphs (auto) 0.74 L, Nucleated RBC % 0.1, Sodium 141, Potassium 4.4, Chloride 105, Carbon Dioxide 24.0, Anion Gap 12, BUN 48 H, Creatinine 0.95, Estim Creat Clear Calc 55.12, Est GFR (MDRD) Non-Af 84, BUN/Creatinine Ratio 51.2 H, Glucose 145 H, Calcium 9.2 Micro: Microbiology 05/03/25 21:13 Mucosa - Nasopharyngeal Respiratory Panel (PCR) - Final 05/03/25 18:31 Mucosa - Nose SARS-CoV-2, Influenza & RSV (PCR) - Final Physical Exam Const alert and no apparent distress Constitutional Narrative: Patient has visible cognitive impairment General Appearance: well developed Orientation / Consciousness: awake HEENT normocephalic, head/scalp atraumatic and moist oral mucous membranes Eyes PERRL, EOMs intact bilaterally and conjunctivae normal Neck supple, no JVD, thyroid normal and no carotid bruits General: trachea midline Resp normal respiratory effort, no retractions, no use of accessory muscles and clear to auscultation bilaterally Auscultation: Negative for rales, rhonchi or wheezes Cardio regular rate, regular rhythm, S1 normal heart sound, S2 normal heart sound, no murmurs, no rub and no gallops GI normal to inspection, nondistended, normoactive bowel sounds, soft to palpation, non-tender and non-distended GI Narrative: PEG tube is in place Extremity no clubbing, cyanosis or edema Skin no rashes or lesions noted General Skin Exam: no breakdown Neuro CN's II-XII intact bilaterally Neuro Narrative: Patient has right hemiparesis, he is aphasic Sensorium / Orientation: awake and alert Psych Psych Narrative: Patient has cognitive impairment Assessment & Plan Assessment/Plan (1) COPD with exacerbation: PLAN: Plan 1. Acute on chronic hypoxic respiratory failure secondary to COPD exacerbation-continue present medications, pulse ox will be monitored #2 acute exacerbation of COPD-patient will remain on IV corticosteroids and aerosol treatments #3 cerebrovascular disease with aphasia, dysphagia, and right hemiparesis-tube feedings will continue, complicates care, management, recovery, and prognosis #4 Central hypertension-patient will remain on his present medication #5 paroxysmal atrial fibrillation-patient is on Eliquis and metoprolol #6 seizure disorder-patient remains on Tegretol Total clinical time spent by myself addressing the patient's medical issues, reviewing all of his data, and collaborating with the patient's care team: 35 minutes Charges/Coding Visit Charges Inpatient E&M: 71999 Subs Hosp L2
[2025-05-07] MEDS: Diphenoxylate/Atrop 1 Tablet 2 TABLET GT (20:17)
[2025-05-08] MEDS: Pivot 1.5 Cal 1,000 ML BOTTLE GT ×3 (00:20→16:20)
[2025-05-08 05:00] VITALS: BP 159/71; PULSE 71; RESP 18; TEMP 35.9; O2SAT 95
[2025-05-08] MEDS: Thiamine Hydrochloride 100 MG Tablet GT (09:15)
[2025-05-08] MEDS: APIXABAN 2.5 MG TABLET (WCH) GT (09:15)
[2025-05-08 09:21] VITALS: PULSE 64
[2025-05-08] MEDS: carBAMazepine 200 MG/10 ML UDC (WCH) GT ×3 (09:21→17:35)
[2025-05-08 09:28] VITALS: BP 152/78; PULSE 64; RESP 17; TEMP 36.6; O2SAT 94
--- NOTE | 2025-05-08 11:10 | CASEMGMT ---
Addendum entered by Magalie Vega 05/08/25 13:40: Addendum: SNF considering guardianship due to pt caregivers repeatedly pulling him from SNF and SNF then being left with unpaid bills. SNF reports that they will look into expert eval once admitted. SHANE Cao Original Note: Social Work- spoke with AKHIL Jeter, who was present and visiting pt. Steffany agreeable to admit pt today as sitter has been out of the room since 16:00 yesterday. [facility]ffany reports that they are looking at guardianship once pt arrives at facility. RNCM updated. SHANE Cao
--- NOTE | 2025-05-08 13:30 | PCM.TXEXTCAR ---
Diet Diet Order/Speech Therapy: INPATIENT Hospital Diet / Speech Therapy Order(s) 05/03/25 22:00 Diet: Nothing Per Oral Tube Feed: Pivot 1.5-calorie 300 cc 5X a day bolus, 100 cc water flush before/after Routine Orders/Code Status Code Status: Full Code DC O2, CPAP, BIPAP needs Home O2 Discharge instructions: Yes Type of respiratory needs?: Oxygen Oxygen frequency: Continuous Continuous oxygen liters per minute: 2 L Wound(s) Left Forearm: Wound Type: Skin Tear Problem/Diagnosis (1) COPD with exacerbation: Status: Chronic Code(s): J44.1 - Chronic obstructive pulmonary disease with (acute) exacerbation Plan Final diagnosis #1 acute on chronic hypoxic respiratory failure secondary to COPD exacerbation #2 essential hypertension #3 paroxysmal A-fib #4 cerebrovascular disease with right Horacio plegia and aphasia #5 chronic depression #6 seizure disorder Allergies/Procedures Done in Hospital Allergies No Known Allergies Allergy (Verified 01/23/25 10:30) Type of Care/Length of Stay Estimated LOS: More Than 30 Days Type of Care Needed: Intermediate Rehab Potential: Fair Prognosis: Fair Additional Orders/Day of Discharge Day of Discharge: 05/08/25 Dietary and Speech Recommendations Dietitian Recommendations/Changes: Will continue home regimen for enteral nutrition support as ordered. Pt is NPO/dysphagia and enteral nutrition support to meet ~100% estimated nutrition needs. Continue Pivot 1.5 Alex via PEG tube: 300mL bolus 5 times per day with 100mL water flush before and after each bolus. TF and water flushes provide 2250 kcal, 140.7 gm pro and 2125 mL free water. Trend weight; TF as ordered promotes weight gain. Discharge Plan Admission Admit Date/Time: 05/03/25 20:45 Primary Reason for Your Visit: COPD exacerbation, acute on chronic respiratory failure Attending Provider: Ryan Guerin Primary Care Provider: Lorraine Mena Consulting Providers: Shilpa Contreras; Dominguez Campbell Discharge Orders/Prescriptions Prescriptions: New albuterol sulfate 2.5 mg /3 mL (0.083 %) Solution For Nebulization 2.5 mg inhalation Q2H PRN PRN (Reason: Dyspnea, wheezing) Qty: 0 0RF menthol-zinc oxide [Calmoseptine] 0.44-20.6 % Ointment 1 applic topical 4X/DAY Qty: 0 0RF Protocol: *Topical Application Instructions APPLICATION INSTRUCTIONS: apply to affected region quetiapine 25 mg Tablet 75 mg G-tube QHS Qty: 0 0RF prednisone 20 mg tablet 20 mg PO DAILY Qty: 10 0RF Rx Instructions: 20 mg daily for 10 days then discontinue-start on 05/09/2025 Continued acetaminophen 325 mg Tablet 650 mg feeding tube Q6H PRN PRN (Reason: Pain 1-10 Or Fever>100.7) Qty: 0 0RF ipratropium-albuterol 0.5 mg-3 mg(2.5 mg base)/3 mL Solution For Nebulization 3 ml inhalation .q6hwa Qty: 0 0RF clonidine 0.2 mg/24 hr Patch Weekly 0.2 mg transdermal Q7D Qty: 0 0RF amlodipine 10 mg Tablet 10 mg G-tube DAILY.RT Qty: 0 0RF carbamazepine 100 mg/5 mL Suspension 200 mg G-tube 4X/DAY Qty: 0 0RF thiamine HCl (vitamin B1) 100 mg Tablet 100 mg G-tube BREAKFAST Qty: 0 0RF sertraline 100 mg tablet 100 mg feeding tube DAILY 30 Days Qty: 30 0RF mirtazapine 15 MG tablet 15 mg feeding tube QHS 30 Days Qty: 30 0RF ergocalciferol (vitamin D2) [Vitamin D2] 1,250 mcg (50,000 unit) Capsule 1,250 mcg feeding tube Q7D Qty: 0 0RF losartan 100 mg tablet 100 mg feeding tube DAILY 30 Days Qty: 30 0RF finasteride 5 MG tablet 5 mg feeding tube DAILY 30 Days Qty: 30 0RF Patient Comments: prostate cholecalciferol (vitamin D3) 50 mcg (2,000 unit) tablet 50 mcg feeding tube DAILY 30 Days Qty: 30 0RF hydralazine 25 mg Tablet 50 mg G-tube 3XD Rx Instructions: Hold for SBP less than 110 metoprolol tartrate 25 mg tablet 50 mg feeding tube BID Rx Instructions: Hold for SBP below 110, HR below 55 atorvastatin 40 mg Tablet 40 mg G-tube QHS Qty: 0 0RF lansoprazole [Prevacid] 30 mg capsule,delayed release(DR/EC) 30 mg feeding tube BID Qty: 1 0RF Eliquis 5 mg Tablet 2.5 mg G-tube BID Discontinued albuterol sulfate 2.5 mg /3 mL (0.083 %) Solution For Nebulization 2.5 mg inhalation Q4H PRN (Reason: DYSPNEA/WHEEZING/SOB) Qty: 0 0RF melatonin 3 mg Tablet 3 mg G-tube QHS PRN PRN (Reason: Insomnia) Qty: 0 0RF Jevity 1.5 Alex 0.06 gram-1.5 kcal/mL liquid 55 ml feeding tube .18hours Qty: 5688 0RF Rx Instructions: Goal TF: 55 ml/hr to run for 18 hours/day. Upon SNF transition goal is to achieve this and would plan to increase by 10 ml/hr every 8-12 hours until achieve the goal of 55 ml/hr for the 18 hour run daily. Flush 165 ml free water every 4 hours. Isosource 1.5 Alex 0.07 gram-1.5 kcal/mL liquid See Rx Instructions .ROUTE .COMPLEX Rx Instructions: 300 cc 5x/day via bolus per PEG; flush with 100 cc of water before and after each bolus administration OXYGEN - Supplemental ([facility] INFORMATIONAL USE ONLY) Patient Comments: pt doesn't know lpm or what company Referrals / Follow Up: Lorraine Mena MD [Primary Care Provider, Internal Medicine] Disposition Disposition (needs filled in before D/C Order can be placed): NonSkilled NH/Intermed Care
[2025-05-08 13:57] VITALS: BP 138/65; PULSE 60; RESP 17; TEMP 36.5; O2SAT 93
[2025-05-08 14:05] VITALS: PULSE 61
[2025-05-08] MEDS: Diphenoxylate/Atrop 1 Tablet 2 TABLET GT (14:09)
--- NOTE | 2025-05-08 14:24 | PHA.DC_ITS ---
Pharmacy [place] Med Reconciliation Pharmacy Service has performed discharge medication reconciliation for this patient. The patient's discharge medication list was reviewed for discrepancies and discrepancies were resolved. Medications at Discharge Home Medications acetaminophen 325 mg tablet 650 mg (2 x 325 mg) feeding tube Q6H PRN PRN Pain 1- 10 Or Fever>100.7 #0 tabs 12/24/24 amlodipine 10 mg tablet 10 mg G-tube DAILY.RT #0 tabs 12/24/24 carbamazepine 100 mg/5 mL oral suspension 200 mg (10 mL) G-tube 4X/DAY #0 mL 12/24/24 cholecalciferol (vitamin D3) 50 mcg (2,000 unit) tablet 50 mcg feeding tube DAILY SUPPLEMENT 30 days #30 tabs 12/24/24 clonidine 0.2 mg/24 hr weekly transdermal patch 0.2 mg transdermal Q7D blood pressure #0 ea 12/24/24 ergocalciferol (vitamin D2) 1,250 mcg (50,000 unit) capsule (Vitamin D2) 1,250 mcg feeding tube Q7D SUPPLEMENT #0 caps 12/24/24 finasteride 5 mg tablet 5 mg feeding tube DAILY prostate 30 days #30 tabs 12/24/24 ipratropium 0.5 mg-albuterol 3 mg (2.5 mg base)/3 mL nebulization soln 3 ml inhalation .q6hwa #0 mL 12/24/24 losartan 100 mg tablet 100 mg feeding tube DAILY Blood pressure 30 days #30 tabs 12/24/24 mirtazapine 15 mg tablet 15 mg feeding tube QHS anti depressant 30 days #30 tabs 12/24/24 sertraline 100 mg tablet 100 mg feeding tube DAILY DEPRESSION 30 days #30 tabs 12/24/24 thiamine HCl (vitamin B1) 100 mg tablet 100 mg G-tube BREAKFAST #0 tabs 12/24/24 hydralazine 25 mg tablet 50 mg G-tube 3XD blood pressure 01/03/25 metoprolol tartrate 25 mg tablet 50 mg feeding tube BID Blood pressure 01/03/25 atorvastatin 40 mg tablet 40 mg G-tube QHS #0 tabs 01/08/25 lansoprazole 30 mg capsule,delayed release (Prevacid) 30 mg feeding tube BID #1 cap 01/08/25 apixaban 5 mg tablet (Eliquis) 2.5 mg G-tube BID blood thinner 05/03/25 albuterol sulfate 2.5 mg/3 mL (0.083 %) solution for nebulization 2.5 mg (3 mL) inhalation Q2H PRN PRN Dyspnea, wheezing #0 mL 05/08/25 menthol 0.44 %-zinc oxide 20.6 % topical ointment (Calmoseptine) 1 applic topical 4X/DAY #0 grams 05/08/25 prednisone 20 mg tablet 20 mg PO DAILY #10 tabs 05/08/25 quetiapine 25 mg tablet 75 mg (3 x 25 mg) G-tube QHS #0 tabs 05/08/25
--- NOTE | 2025-05-08 14:40 | CASEMGMT ---
Patient has order for discharge for patient to discharge to [facility] with skilled LOC. Discharge paperwork and signed med list received from hospitalist. SEYMOUR CM updated and provided discharge community health planning director with discharge paperwork to setup transport and notify SNF and family.
--- NOTE | 2025-05-08 14:58 | CASEMGMT ---
Discharge Planning Discharge orders, signed med list, and transport time sent via CarePort to [facility]. Physicians will transport pt by cot at 6:30p. Nursing, SW, pt, and his xwife/HC POA updated. Jacquie Michaud DC Planning Asst.
--- NOTE | 2025-05-08 17:59 | NURSING ---
daughter called wanted to know what meds patient was being dc to [facility] asked if ativan was being given explained that seroquil is being given with good results ativan dc
--- NOTE | 2025-05-08 18:14 | NURSING ---
report called to Gato AHUJA at [facility]
--- NOTE | 2025-05-25 14:43 | PCM.DC.SUM ---
Providers Date of Admission: 05/03/25 Date of Discharge: 05/08/25 Primary Care Physician: Dr. Lorraine Mena MD Reason For Visit: ACUTE RESP FAILURE COPD EXACERBATION Diagnosis Discharge Diagnosis (1) COPD with exacerbation: Status: Inactive Code(s): J44.1 - Chronic obstructive pulmonary disease with (acute) exacerbation Plan 1. Acute on chronic hypoxic respiratory failure secondary to COPD exacerbation-continue present medications, pulse ox will be monitored #2 acute exacerbation of COPD-patient will remain on IV corticosteroids and aerosol treatments #3 cerebrovascular disease with aphasia, dysphagia, and right hemiparesis-tube feedings will continue, complicates care, management, recovery, and prognosis #4 Central hypertension-patient will remain on his present medication #5 paroxysmal atrial fibrillation-patient is on Eliquis and metoprolol #6 seizure disorder-patient remains on Tegretol #7 severe chronic protein and caloric malnutrition related to inadequate energy intake, increased energy expenditure and swallowing difficulty as evidenced by BMI of 17.5. Total clinical time spent by myself addressing the patient's medical issues, reviewing all of his data, and collaborating with the patient's care team: 35 minutes Medications at Discharge Home Medications acetaminophen 325 mg tablet 650 mg (2 x 325 mg) feeding tube Q6H PRN PRN Pain 1-10 Or Fever>100.7 #0 tabs 12/24/24 amlodipine 10 mg tablet 10 mg G-tube DAILY.RT bp #0 tabs 12/24/24 carbamazepine 100 mg/5 mL oral suspension 200 mg (10 mL) G-tube 4X/DAY #0 mL 12/24/24 cholecalciferol (vitamin D3) 50 mcg (2,000 unit) tablet 50 mcg feeding tube DAILY SUPPLEMENT 30 days #30 tabs 12/24/24 clonidine 0.2 mg/24 hr weekly transdermal patch 0.2 mg transdermal Q7D blood pressure #0 ea 12/24/24 ergocalciferol (vitamin D2) 1,250 mcg (50,000 unit) capsule (Vitamin D2) 1,250 mcg feeding tube Q7D SUPPLEMENT #0 caps 12/24/24 ipratropium 0.5 mg-albuterol 3 mg (2.5 mg base)/3 mL nebulization soln 3 ml inhalation .q6hwa wheezes #0 mL 12/24/24 losartan 100 mg tablet 100 mg feeding tube DAILY Blood pressure 30 days #30 tabs 12/24/24 Held on 05/17/25. Instructions: Resume on 05/20/25. mirtazapine 15 mg tablet 15 mg feeding tube QHS anti depressant 30 days #30 tabs 12/24/24 sertraline 100 mg tablet 100 mg feeding tube DAILY DEPRESSION 30 days #30 tabs 12/24/24 thiamine HCl (vitamin B1) 100 mg tablet 100 mg G-tube BREAKFAST supplement #0 tabs 12/24/24 hydralazine 25 mg tablet 50 mg G-tube 3XD blood pressure 01/03/25 atorvastatin 40 mg tablet 40 mg G-tube QHS hld #0 tabs 01/08/25 lansoprazole 30 mg capsule,delayed release (Prevacid) 30 mg feeding tube BID gerd #1 cap 01/08/25 apixaban 5 mg tablet (Eliquis) 2.5 mg G-tube BID blood thinner 05/03/25 albuterol sulfate 2.5 mg/3 mL (0.083 %) solution for nebulization 2.5 mg (3 mL) inhalation Q2H PRN PRN Dyspnea, wheezing #0 mL 05/08/25 menthol 0.44 %-zinc oxide 20.6 % topical ointment (Calmoseptine) 1 applic topical 4X/DAY skin irritation #0 grams 05/08/25 bisacodyl 10 mg rectal suppository 10 mg VA PRN bowel movement 05/12/25 divalproex 125 mg tablet,delayed release (Depakote) 125 mg PO BID seizure 05/12/25 glucagon 1 mg solution for injection (Glucagon Emergency Kit) 1 mg IM Q20M PRN hypoglycemia 05/12/25 guaifenesin 100 mg/5 mL oral liquid (Adult Wal-Tussin) 200 mg PO Q4H PRN congestion/COUGH 05/12/25 magnesium hydroxide 400 mg/5 mL oral suspension (Gentle Laxative (magnesium hydroxide)) 30 ml PO DAILY bowel movement 05/12/25 metoprolol tartrate 50 mg tablet 50 mg feeding tube BID heart 05/12/25 tamsulosin 0.4 mg capsule 0.4 mg PO QHS bph 05/12/25 lactose-reduced food with fiber 0.06 gram-1.5 kcal/mL oral liquid (Jevity 1.5 Alex) 300 ml G-tube 5X/DAY #0 mL 05/17/25 levofloxacin 750 mg tablet 750 mg PO DAILY 2 days #2 tabs 05/17/25 prednisone 20 mg tablet See Taper PO BREAKFAST #32 tabs 05/17/25 Hospital Course Operations None Procedures None Summary of Care Provided Minutes Spent on Discharge: 32 Hospital Course: This 74-year-old white male was seen in the emergency room at [facility] with complaints of shortness of breath. Patient had a past history of stroke and has residual aphasia and was not able to provide any history. Patient resides in an intermediate nursing facility and was on 4 L of oxygen chronically. According to reports from the [facility], patient's pulse ox was 70% on 4 L and he was transported to ER for further evaluation. Workup in the emergency room included a CT of the chest, this CTA was negative for pulmonary embolus, there was a spiculated density in the left upper lobe. CBC was unremarkable except for a hemoglobin of 10.4, chemistry panel showed a BUN of 36 and a creatinine of 1.42. Patient was placed on Airvo, there was an attempt made to decrease his oxygen demand in the emergency room but it was noted that his pulse ox dropped and he was placed back on Airvo. DuoNeb aerosols were given and IV Solu-Medrol. Patient was admitted to PCU for exacerbation of COPD, IV Solu-Medrol and aerosol treatments were continued, it was noted that the patient would pull his oxygen off frequently and it had to be reapplied by nursing staff. Patient's oxygen was able to be weaned down to 2 L before discharge from the hospital. On 05/08/2025, patient was seen and examined:alert and no apparent distress Constitutional Narrative: Patient has visible cognitive impairment General Appearance: well developed Orientation / Consciousness: awake HEENT normocephalic, head/scalp atraumatic and moist oral mucous membranes Eyes PERRL, EOMs intact bilaterally and conjunctivae normal Neck supple, no JVD, thyroid normal and no carotid bruits General: trachea midline Resp normal respiratory effort, no retractions, no use of accessory muscles and clear to auscultation bilaterally Auscultation: Negative for rales, rhonchi or wheezes Cardio regular rate, regular rhythm, S1 normal heart sound, S2 normal heart sound, no murmurs, no rub and no gallops GI normal to inspection, nondistended, normoactive bowel sounds, soft to palpation, non-tender and non-distended GI Narrative: PEG tube is in place Extremity no clubbing, cyanosis or edema Skin no rashes or lesions noted General Skin Exam: no breakdown Neuro CN's II-XII intact bilaterally Neuro Narrative: Patient has right hemiparesis, he is aphasic Sensorium / Orientation: awake and alert Psych Psych Narrative: Patient has cognitive impairment Patient was transferred back to his intermediate nursing facility in stable condition on 05/08/2025. Weight / BMI Weight Weight: 56.7 kg Body Mass Index (BMI) 16.9 ABG / Lab / Microbiology Data 05/07/25 05:46 05/07/25 05:46 Microbiology: Microbiology 05/03/25 21:13 Mucosa - Nasopharyngeal Respiratory Panel (PCR) - Final 05/03/25 18:31 Mucosa - Nose SARS-CoV-2, Influenza & RSV (PCR) - Final D/C Instructions DC O2, CPAP, BIPAP Needs Home O2 Discharge instructions: Yes Type of respiratory needs?: Oxygen Oxygen frequency: Continuous Continuous oxygen liters per minute: 2 L DC home with Oxygen: Yes Home O2 MD Review: I have reviewed the oxygen testing, and the patient qualifies for home oxygen equipment and portability. The patient is mobile in the home and the community. Meaningful Use Info Meaningful Use Meaningful Use Diagnoses (Choose all that apply): None applicable Discharge Plan Admission Admit Date/Time: 05/03/25 20:45 Primary Reason for Your Visit: COPD exacerbation, acute on chronic respiratory failure Attending Provider: Ryan Guerin Primary Care Provider: Lorraine Mena Consulting Providers: Shilpa Contreras; Dominguez Campbell Discharge Orders/Prescriptions Prescriptions: New albuterol sulfate 2.5 mg /3 mL (0.083 %) Solution For Nebulization 2.5 mg inhalation Q2H PRN PRN (Reason: Dyspnea, wheezing) Qty: 0 0RF menthol-zinc oxide [Calmoseptine] 0.44-20.6 % Ointment 1 applic topical 4X/DAY Qty: 0 0RF Protocol: *Topical Application Instructions APPLICATION INSTRUCTIONS: apply to affected region Continued acetaminophen 325 mg Tablet 650 mg feeding tube Q6H PRN PRN (Reason: Pain 1-10 Or Fever>100.7) Qty: 0 0RF ipratropium-albuterol 0.5 mg-3 mg(2.5 mg base)/3 mL Solution For Nebulization 3 ml inhalation .q6hwa Qty: 0 0RF clonidine 0.2 mg/24 hr Patch Weekly 0.2 mg transdermal Q7D Qty: 0 0RF amlodipine 10 mg Tablet 10 mg G-tube DAILY.RT Qty: 0 0RF carbamazepine 100 mg/5 mL Suspension 200 mg G-tube 4X/DAY Qty: 0 0RF thiamine HCl (vitamin B1) 100 mg Tablet 100 mg G-tube BREAKFAST Qty: 0 0RF sertraline 100 mg tablet 100 mg feeding tube DAILY 30 Days Qty: 30 0RF mirtazapine 15 MG tablet 15 mg feeding tube QHS 30 Days Qty: 30 0RF ergocalciferol (vitamin D2) [Vitamin D2] 1,250 mcg (50,000 unit) Capsule 1,250 mcg feeding tube Q7D Qty: 0 0RF losartan 100 mg tablet 100 mg feeding tube DAILY 30 Days Qty: 30 0RF cholecalciferol (vitamin D3) 50 mcg (2,000 unit) tablet 50 mcg feeding tube DAILY 30 Days Qty: 30 0RF hydralazine 25 mg Tablet 50 mg G-tube 3XD Rx Instructions: Hold for SBP less than 110 atorvastatin 40 mg Tablet 40 mg G-tube QHS Qty: 0 0RF lansoprazole [Prevacid] 30 mg capsule,delayed release(DR/EC) 30 mg feeding tube BID Qty: 1 0RF Eliquis 5 mg Tablet 2.5 mg G-tube BID Discontinued albuterol sulfate 2.5 mg /3 mL (0.083 %) Solution For Nebulization 2.5 mg inhalation Q4H PRN (Reason: DYSPNEA/WHEEZING/SOB) Qty: 0 0RF melatonin 3 mg Tablet 3 mg G-tube QHS PRN PRN (Reason: Insomnia) Qty: 0 0RF Jevity 1.5 Alex 0.06 gram-1.5 kcal/mL liquid 55 ml feeding tube .18hours Qty: 5688 0RF Rx Instructions: Goal TF: 55 ml/hr to run for 18 hours/day. Upon SNF transition goal is to achieve this and would plan to increase by 10 ml/hr every 8-12 hours until achieve the goal of 55 ml/hr for the 18 hour run daily. Flush 165 ml free water every 4 hours. Isosource 1.5 Alex 0.07 gram-1.5 kcal/mL liquid See Rx Instructions .ROUTE .COMPLEX Rx Instructions: 300 cc 5x/day via bolus per PEG; flush with 100 cc of water before and after each bolus administration OXYGEN - Supplemental ([facility] INFORMATIONAL USE ONLY) Patient Comments: pt doesn't know lpm or what company No Action bisacodyl 10 mg suppository 10 mg VA PRN divalproex [Depakote] 125 mg tablet,delayed release (DR/EC) 125 mg PO BID Patient Comments: VIA G-TUBE Glucagon Emergency Kit (human) 1 mg recon soln 1 mg IM Q20M PRN (Reason: hypoglycemia) Rx Instructions: until target blood sugar attained tamsulosin 0.4 mg capsule 0.4 mg PO QHS guaifenesin [Adult Wal-Tussin] 100 mg/5 mL liquid 200 mg PO Q4H PRN (Reason: congestion/COUGH) metoprolol tartrate 50 mg tablet 50 mg feeding tube BID magnesium hydroxide [Gentle Laxative (mag hydrox)] 400 mg/5 mL suspension 30 ml PO DAILY prednisone 20 mg Tablet See Taper PO BREAKFAST Qty: 32 0RF Taper: Prednisone Taper 60 mg WITH BREAKFAST for 3 Days and 0 Hour 50 mg WITH BREAKFAST for 3 Days and 0 Hour 40 mg WITH BREAKFAST for 3 Days and 0 Hour 30 mg WITH BREAKFAST for 3 Days and 0 Hour 20 mg WITH BREAKFAST for 3 Days and 0 Hour 10 mg WITH BREAKFAST for 3 Days and 0 Hour levofloxacin 750 mg tablet 750 mg PO DAILY 2 Days Qty: 2 0RF Jevity 1.5 Alex 0.06 gram-1.5 kcal/mL Liquid 300 ml G-tube 5X/DAY Qty: 0 0RF Referrals / Follow Up: Lorraine Mena MD [Primary Care Provider, Internal Medicine] Disposition Disposition (needs filled in before D/C Order can be placed): NonSkilled NH/Intermed Care Charges/Coding Visit Charges Inpatient E&M: 14370 Disch Hosp >30min
== END 2025-05-08 19:10 | disposition intermediate care facility (04) | DRG 189 ==
LOC: ED 19:05 → PCU 21:01
PROVIDERS: Family Medicine; Admitting Provider Family Medicine; Emergency Provider Student in an Organized Health Care Education/Training Program; PCP Internal Medicine; Visit Provider Internal Medicine
DX: J96.21 Acute and chronic respiratory failure with hypoxia (principal); E43 Unspecified severe protein-calorie malnutrition; I24.89 Other forms of acute ischemic heart disease; I69.351 Hemiplegia and hemiparesis following cerebral infarction affecting right dominant side; J44.1 Chronic obstructive pulmonary disease with (acute) exacerbation; K51.90 Ulcerative colitis, unspecified, without complications; J45.901 Unspecified asthma with (acute) exacerbation; N13.8 Other obstructive and reflux uropathy; Z68.1 Body mass index [BMI] 19.9 or less, adult; I69.318 Other symptoms and signs involving cognitive functions following cerebral infarction; R13.10 Dysphagia, unspecified; Z99.81 Dependence on supplemental oxygen; I48.0 Paroxysmal atrial fibrillation; E11.22 Type 2 diabetes mellitus with diabetic chronic kidney disease; G40.909 Epilepsy, unspecified, not intractable, without status epilepticus; D50.9 Iron deficiency anemia, unspecified; F32.A Depression, unspecified; I12.9 Hypertensive chronic kidney disease with stage 1 through stage 4 chronic kidney disease, or unspecified chronic kidney disease; Z93.1 Gastrostomy status; E11.51 Type 2 diabetes mellitus with diabetic peripheral angiopathy without gangrene; I69.320 Aphasia following cerebral infarction; N18.2 Chronic kidney disease, stage 2 (mild); E78.5 Hyperlipidemia, unspecified; F17.200 Nicotine dependence, unspecified, uncomplicated; F41.9 Anxiety disorder, unspecified; G47.33 Obstructive sleep apnea (adult) (pediatric); I25.10 Atherosclerotic heart disease of native coronary artery without angina pectoris; I69.391 Dysphagia following cerebral infarction; K21.9 Gastro-esophageal reflux disease without esophagitis; I65.23 Occlusion and stenosis of bilateral carotid arteries; R19.7 Diarrhea, unspecified; D72.829 Elevated white blood cell count, unspecified; S51.812A Laceration without foreign body of left forearm, initial encounter; T38.0X5A Adverse effect of glucocorticoids and synthetic analogues, initial encounter; R91.8 Other nonspecific abnormal finding of lung field; I49.1 Atrial premature depolarization; N40.1 Benign prostatic hyperplasia with lower urinary tract symptoms; M81.0 Age-related osteoporosis without current pathological fracture; Z87.19 Personal history of other diseases of the digestive system; Z79.01 Long term (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 of anticoagulants; Z79.899 Other long term (current) drug therapy; Z79.51 Long term (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 of inhaled steroids; Z90.49 Acquired absence of other specified parts of digestive tract
CPT/HCPCS: 36415; 71275; 80048; 80053; 82803; 83735; 84145; 84484; 85025; 87631; 87633; 93005; 94640; 94660; 94762; 97162; 97166; 97530; 97802; 97803; 99285; Q9967; A4216

== ENCOUNTER 2025-05-12 16:14 | Inpatient (IN) | payer MEDICARE, MEDICAID, SELFPAY ==
[2025-05-12] VITALS (20 sets, daily range): BP systolic 138–171; BP diastolic 57–87; PULSE 75–94; RESP 17–28; TEMP 36.4–37; O2SAT 79–98; BMI 18.3; BMI 17.4
--- NOTE | 2025-05-12 16:29 | EKG12_ITS ---
Test Reason : Blood Pressure : */* mmHG Vent. Rate : 83 BPM Atrial Rate : 83 BPM P-R Int : 178 ms QRS Dur : 88 ms QT Int : 352 ms P-R-T Axes : 103 60 87 degrees QTcB Int : 413 ms Normal sinus rhythm with sinus arrhythmia Normal ECG Confirmed by DIMAS RANDALL, NTAE ([id number]), newspaper or periodical editor RAE NATH ([id number]) on 05/14/2025 9:10:40 AM Referred By: Confirmed By: NATE COCHRAN MD
--- NOTE | 2025-05-12 16:32 | EX.ED.DYSGE1 ---
HPI History of Present Illness Chief Complaint: Shortness of Breath Informant: EMS and SNF Narrative Narrative: 74-year-old male brought to the emergency room with chief complaint of hypoxia. 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 He has a feeding tube and is 100% dependent on enteral feedings. He has a history of COPD. He is anticoagulated on Eliquis. Was noted that he would not keep his oxygen on today as a result his oxygen levels were in the 82 to 85% range. EMS applied oxygen at 5 L and he went to 100%. Patient is not able to provide me any history because of the stroke. [facility] also reports that he has rhonchorous lung sounds. He was recently admitted to the hospital with a COPD exacerbation. There is no report of fever. He was reportedly a full code. [facility] Medical History CVA (cerebral vascular accident) Aphasia Debility COPD (chronic obstructive pulmonary disease) Current use of prison anticoagulation History of atrial fibrillation Obstructive sleep apnea Seizure disorder Lupus anticoagulant disorder Bronchospasm, acute Aspiration into respiratory tract Acute and chronic respiratory failure with hypoxia Hypertension Dyspnea Acute CVA (cerebrovascular accident) Hypertension Weakness Failure to thrive Compression fx, lumbar spine Hypertension Falls Hypertension Closed fracture of right superior pubic ramus Multiple falls Compression fracture of thoracic vertebra Iron deficiency anemia Chronic respiratory failure with hypoxia Osteoporosis Lumbar compression fracture Compression fracture Hyperlipidemia Asthma Peripheral arterial occlusive disease Chronic obstructive pulmonary disease Coronary artery disease BPH (benign prostatic hyperplasia) Ulcerative colitis Peripheral vascular disease Anxiety COPD (chronic obstructive pulmonary disease) with emphysema Closed fracture of right inferior pubic ramus Acute UTI COPD (chronic obstructive pulmonary disease) UTI (urinary tract infection) Depression Diabetes Kidney stones Chronic pain Pancreatitis On home oxygen therapy Irregular heart beat Atrial fibrillation Stroke/cerebrovascular accident Smoker Falls frequently Seizures Sleep apnea COPD (chronic obstructive pulmonary disease) Asthma High cholesterol Tobacco abuse Home Medications Medication Instructions Recorded Last Taken Type acetaminophen 325 mg tablet 650 mg (2 x 325 mg) feeding tube 12/24/24 Unknown Rx Q6H PRN PRN Pain 1-10 Or Fever>100.7 #0 tabs amlodipine 10 mg tablet 10 mg G-tube DAILY.RT #0 tabs 12/24/24 Unknown Rx carbamazepine 100 mg/5 mL oral 200 mg (10 mL) G-tube 4X/DAY #0 mL 12/24/24 Unknown Rx suspension cholecalciferol (vitamin D3) 50 50 mcg feeding tube DAILY 12/24/24 01/05/25 Rx mcg (2,000 unit) tablet SUPPLEMENT 30 days #30 tabs clonidine 0.2 mg/24 hr weekly 0.2 mg transdermal Q7D blood 12/24/24 05/03/25 Rx transdermal patch pressure #0 ea ergocalciferol (vitamin D2) 1,250 1,250 mcg feeding tube Q7D 12/24/24 12/13/24 08:58 Rx mcg (50,000 unit) capsule (Vitamin SUPPLEMENT #0 caps D2) ipratropium 0.5 mg-albuterol 3 mg 3 ml inhalation .q6hwa #0 mL 12/24/24 Unknown Rx (2.5 mg base)/3 mL nebulization soln losartan 100 mg tablet 100 mg feeding tube DAILY Blood 12/24/24 12/13/24 08:58 Rx pressure 30 days #30 tabs mirtazapine 15 mg tablet 15 mg feeding tube QHS anti 12/24/24 12/12/24 20:59 Rx depressant 30 days #30 tabs sertraline 100 mg tablet 100 mg feeding tube DAILY 12/24/24 Unknown Rx DEPRESSION 30 days #30 tabs thiamine HCl (vitamin B1) 100 mg 100 mg G-tube BREAKFAST #0 tabs 12/24/24 Unknown Rx tablet hydralazine 25 mg tablet 50 mg G-tube 3XD blood pressure 01/03/25 Unknown History atorvastatin 40 mg tablet 40 mg G-tube QHS #0 tabs 01/08/25 Unknown Rx lansoprazole 30 mg capsule,delayed 30 mg feeding tube BID #1 cap 01/08/25 Unknown Rx release (Prevacid) apixaban 5 mg tablet (Eliquis) 2.5 mg G-tube BID blood thinner 05/03/25 Unknown History albuterol sulfate 2.5 mg/3 mL 2.5 mg (3 mL) inhalation Q2H PRN 05/08/25 Unknown Rx (0.083 %) solution for nebulization PRN Dyspnea, wheezing #0 mL menthol 0.44 %-zinc oxide 20.6 % 1 applic topical 4X/DAY #0 grams 05/08/25 Unknown Rx topical ointment (Calmoseptine) prednisone 20 mg tablet 20 mg PO DAILY #10 tabs 05/08/25 Unknown Rx bisacodyl 10 mg rectal suppository 10 mg DC PRN 05/12/25 Unknown History divalproex 125 mg tablet,delayed 125 mg PO BID 05/12/25 Unknown History release (Depakote) glucagon 1 mg solution for 1 mg IM Q20M PRN hypoglycemia 05/12/25 Unknown History injection (Glucagon Emergency Kit) guaifenesin 100 mg/5 mL oral 200 mg PO Q4H PRN congestion/COUGH 05/12/25 Unknown History liquid (Adult Wal-Tussin) magnesium hydroxide 400 mg/5 mL 30 ml PO DAILY 05/12/25 Unknown History oral suspension (Gentle Laxative (magnesium hydroxide)) metoprolol tartrate 50 mg tablet 50 mg feeding tube BID 05/12/25 Unknown History tamsulosin 0.4 mg capsule 0.4 mg PO QHS 05/12/25 Unknown History Allergy/AdvReac Type Severity Reaction Status Date / Time No Known Allergies Allergy Verified 05/12/25 16:21 Family History Mother Heart disease CVA (cerebral vascular accident) Hypertension Father Heart disease CVA (cerebral vascular accident) Hypertension Surgical History S/P arterial stent History of appendectomy Social History household members: caregiver housing: [facility] 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 Smoking Status: Light Smoker (<10/day) alcohol intake: former details: Former alcoholic quit several years ago substance use type: does not use caffeine: Yes Type: coffee Number of servings: 3 ROS ROS ED Review of Systems ROS Unobtainable: other Details: Aphasia EXAM Physical Exam Narrative Exam Narrative: Strong smell of urine emanating from the patient. Const Vital Signs: 05/12/25 16:17 05/12/25 16:21 05/12/25 16:22 Temperature 98.1 F 98.1 F Temperature Source Axillary Axillary Pulse Rate 80 82 Respiratory Rate 20 H 23 H Respiratory Effort Normal Respiratory Depth Shallow Respiratory Pattern Tachypnea Blood Pressure 154/67 H 154/67 H Blood Pressure Mean 96 96 Pulse Ox 95 95 Oxygen Delivery Method Nasal Cannula Nasal Cannula Oxygen Flow Rate (L/min) 4 4 05/12/25 16:27 05/12/25 16:29 05/12/25 16:30 Temperature Temperature Source Pulse Rate 80 81 Respiratory Rate 19 H 19 H Respiratory Effort Respiratory Depth Respiratory Pattern Blood Pressure Blood Pressure Mean Pulse Ox 96 95 95 Oxygen Delivery Method Room Air Oxygen Flow Rate (L/min) 4 05/12/25 16:45 05/12/25 17:00 05/12/25 17:02 Temperature Temperature Source Pulse Rate 94 81 Respiratory Rate 27 H 26 H Respiratory Effort Respiratory Depth Respiratory Pattern Blood Pressure Blood Pressure Mean Pulse Ox 98 Oxygen Delivery Method Nasal Cannula Oxygen Flow Rate (L/min) 4 05/12/25 17:15 05/12/25 17:20 05/12/25 17:30 Temperature 97.8 F Temperature Source Temporal Pulse Rate 84 84 85 Respiratory Rate 28 H 18 19 H Respiratory Effort Respiratory Depth Respiratory Pattern Blood Pressure 154/87 H Blood Pressure Mean 109 Pulse Ox 95 79 Oxygen Delivery Method Room Air Oxygen Flow Rate (L/min) 05/12/25 17:45 05/12/25 18:00 05/12/25 18:09 Temperature 98.6 F Temperature Source Axillary Pulse Rate 79 83 78 Respiratory Rate 21 H 17 20 H Respiratory Effort Respiratory Depth Respiratory Pattern Blood Pressure 167/82 H Blood Pressure Mean 110 Pulse Ox 95 86 95 Oxygen Delivery Method Nasal Cannula Oxygen Flow Rate (L/min) 05/12/25 18:09 05/12/25 18:15 05/12/25 19:00 Temperature 97.5 F L Temperature Source Oral Pulse Rate 80 85 78 Respiratory Rate 21 H 28 H 22 H Respiratory Effort Respiratory Depth Respiratory Pattern Blood Pressure 167/82 H 138/86 H 166/69 H Blood Pressure Mean 105 102 101 Pulse Ox 96 91 Oxygen Delivery Method Nasal Cannula Oxygen Flow Rate (L/min) 4 05/12/25 19:00 05/12/25 19:07 Temperature 97.5 F L Temperature Source Pulse Rate 78 78 Respiratory Rate 22 H 22 H Respiratory Effort Respiratory Depth Respiratory Pattern Tachypnea Blood Pressure 166/69 H Blood Pressure Mean 101 Pulse Ox 91 Oxygen Delivery Method Oxygen Flow Rate (L/min) Positive well nourished and well developed General Appearance ED: well developed and NAD HEENT Reports normocephalic, head/scalp atraumatic and moist mucous membranes Eyes PERRL and EOMs intact bilaterally Neck no lymphadenopathy, supple and no JVD Resp normal respiratory effort Auscultation: rhonchi throughout Cardio regular rate, regular rhythm and no murmurs GI normal to inspection, nondistended, normoactive bowel sounds and non-tender GI Narrative: Feeding tube present abdominal binder is in place Palpation: soft Back/Spine no CVA tenderness and normal ROM Extremity normal to inspection General Extremety ED: Negative for edema General Extremity: Negative for edema Neuro Neuro Narrative: Patient nonverbal. He moves left side well. Sensorium / Orientation: alert Motor Exam: strength 5/5 throughout Psych Psych Narrative: Unable to assess Skin no rashes or lesions noted and no wounds MDM MDM MDM Narrative Medical decision making narrative: Differential diagnosis includes but not limited to COPD exacerbation pneumonia aspiration pleural effusion multiple acid-base disturbance such as respiratory acidosis multiple CO2 narcosis electrolyte abnormalities dehydration sepsis UTI ABG shows a pH of 7.475 pCO2 38.9 pO2 54.6 HCO3 28.7. White count 15.4 hemoglobin stable at 9.9 platelet count of 506. Normal INR. Normal lactic acid at 1.8. 2 sets of cardiac enzymes are 27 and 27. Urinalysis 4+ bacteria positive nitrates 5-10 white cells 5-10 red cells 5-10 squamous cells sent for culture blood cultures obtained. Creatinine is at baseline. Independent interpretation of the chest x-ray is possible right lower lobe infiltrate. Patient has rhonchorous lung sounds bilaterally. He received a breathing treatment and because of the concern for possible aspiration I gave him Zosyn. He also received a dose of Solu-Medrol. Plan of care will be admission as he is requiring higher oxygen levels than baseline and his inability to communicate and participate in health including keeping his oxygen on. History & Record Review Discussion w/independent historian: EMS personnel and Other (SNF) Additional record(s) reviewed:: Prior inpatient record, Prior ED visit and Prior labs Lab Data Attestation: I reviewed the patient's lab results. Labs: Laboratory Results - last 24 hr 05/12/25 05/12/25 05/12/25 16:25 16:35 18:26 WBC 15.4 H RBC 3.96 L Hgb 9.9 L Hct 32.9 L MCV 83.1 MCH 25.0 L MCHC 30.1 L RDW Std Deviation 52.5 H RDW Coeff of Aly 17.2 H Plt Count 506 H MPV 10.4 Immature Gran % (Auto) 1.900 H Neut % (Auto) 89.5 H Lymph % (Auto) 5.3 L [place] % (Auto) 2.9 Eos % (Auto) 0.1 Baso % (Auto) 0.3 Absolute Neuts (auto) 13.8 H Absolute Lymphs (auto) 0.82 L Nucleated RBC % 0.2 PT 14.1 INR 1.1 APTT 34.9 Sodium 140 Potassium 4.4 Chloride 100 Carbon Dioxide 26.4 Anion Gap 14 BUN 38 H Creatinine 0.97 Estim Creat Clear Calc 57.33 Est GFR (MDRD) Non-Af 81 BUN/Creatinine Ratio 39.5 H Glucose 136 H Lactic Acid 1.8 Calcium 9.9 Total Bilirubin < 0.15 AST 55 H ALT 86 H Alkaline Phosphatase 106 Troponin T High Sens 27 H D Troponin T Hi Sens 2 Hr 27 H Total Protein 7.0 Albumin 3.4 Globulin 3.7 Albumin/Globulin Ratio 0.9 Urine Color Yellow Urine Clarity Cloudy Urine pH 6.5 Ur Specific [place] 1.010 Urine Protein 30 H Urine Glucose (UA) Normal Urine Ketones Negative Urine Occult Blood 25 H Urine Nitrite Positive H Urine Bilirubin Negative Urine Urobilinogen Normal Ur Leukocyte Esterase 25 H Urine RBC 5-10 SEEN Urine WBC 5-10 SEEN Ur Squamous Epith Cells 5-10 SEEN Urine Bacteria 4+ Urine Mucus 0 SEEN ABG Data ABG results: ABG 05/12/25 16:46 Specimen Type ART Sample Site L Radial pH 7.48 H Bicarbonate Actual 28.7 H Total CO2 30 Base Excess 5 H O2 Saturation 90 L O2 % 4.0 ABG pCO2 38.9 ABG pO2 55 L Dann Test Positive O2 Delivery Device Cannula Vent Mode Not entered Radiography Diagnostic Testing: Clinical Impression(s) from Imaging Studies Chest X-Ray 05/12/25 17:04 IMPRESSION: Patchy/streaky right basilar airspace opacities, possibly pneumonia. Reading Location: [facility] EKG Initial EKG: Attestation: I personally reviewed and interpreted this EKG as follows: Comments: Normal sinus rhythm ventricular rate of 83 bpm Management Discussion w/another healthcare provider: Hospitalist (Dr. Contreras) Discharge Plan Dx/Rx/DC Orders Clinical Impression: Pneumonia, Presence of externally removable percutaneous endoscopic gastrostomy (PEG) tube, COPD (chronic obstructive pulmonary disease), Hemiplegia, Aphasia, Acute on chronic hypoxic respiratory failure Disposition Disposition: Acute Care Hospital [facility] [place] [facility]
[2025-05-12 16:50] LABS: Hematocrit 32.9 % (40-54); Hemoglobin 9.9 g/dL (13.0-16.5); Immature Granulocytes Count 0.290 X10^3/uL (0.0-0.0); Mean Corp Hgb Conc 30.1 g/dL (32-36); Mean Corpuscular Volume 83.1 fL (80-94); Mean Platelet Vol. 10.4 fl (6.2-12.0); NRBC Flagged by Analyzer 0.2 % (0-5); Platelet Count 506 K/mm3 (150-450); RBC Distribution Width CV 17.2 % (11.6-14.6); RBC Distribution Width SD 52.5 fl (35.1-43.9); Red Blood Count 3.96 M/mm3 (4.6-6.2); White Blood Count 15.4 K/mm3 (4.4-11.0)
[2025-05-12 16:50] LABS: Allen Test Positive; Base Excess 5 mmol/L (-2 to +2); FI02 4.0; PO2 55 mmHG (75-100); SITE L Radial; SO2 90 % (94-98)
[2025-05-12 17:01] LABS: Mucous, Urine 0 SEEN /hpf (<or=2+)
[2025-05-12 17:04] LABS: Color, Urine Yellow (Yellow); Glucose, Dipstick Normal (Normal); Ketone-Dipstick Negative (Negative); Leukocyte Esterase-Dipstick 25 /ul (Negative); Nitrite-Dipstick Positive (Negative); Occult Blood-Urine 25 /ul (Negative); Protein-Dipstick 30 mg/dl (Negative); Specific Gravity, Urine 1.010 (1.002-1.030); Urine Bilirubin Dipstick Negative (Negative)
[2025-05-12 17:04] LABS: Prothrombin Time (Protime)PT. 14.1 SECONDS (11.7-14.9)
--- NOTE | 2025-05-12 17:04 | RAD_ITS ---
PROCEDURE: CHEST 1 VIEW (PORTABLE) 05/12/2025 REASON FOR EXAM: COUGH TECHNIQUE: Frontal view of the chest. COMPARISON: 01/06/2025. FINDINGS: Lungs/Pleura: Patchy airspace opacity in the right lower lung zone may represent pneumonia. No focal consolidation on the left. No pneumothorax or sizable pleural effusion. Heart/Mediastinum: Within normal limits. Aortic arch calcification. Bones/Soft tissues: Multilevel degenerative changes of the spine. RAD/Chest 1 View (Portable) IMPRESSION: Patchy/streaky right basilar airspace opacities, possibly pneumonia. Reading Location: [id number]
[2025-05-12 17:05] LABS: Partial Thromboplast Time 34.9 Seconds (24.1-36.2)
[2025-05-12 17:15] LABS: Squamous Epithelial Cells - UA 5-10 SEEN /hpf (0-5)
[2025-05-12 17:16] LABS: Red Blood Cells-Urine 5-10 SEEN /hpf (0-5)
[2025-05-12 17:31] LABS: AST(SGOT) 55 U/L (<=37); Alanine Aminotransfer ALT/SGPT 86 U/L (<=46); Albumin, Serum 3.4 g/dL (3.4-4.8); Alkaline Phosphatase 106 U/L (40-129); Anion Gap 14 (5-15); BUN 38 mg/dL (4-19); BUN/Creat Ratio 39.5 RATIO (10-20); Calcium,Total 9.9 mg/dL (7.6-11.0); Carbon Dioxide 26.4 mmol/L (21.0-32.0); Chloride 100 mmol/L (98-108); Estimated Creatinine Clearance 57.33 ml/min (50-250); Globulin 3.7 g/dL (2.2-4.2); Glucose 136 mg/dL (70-99); Potassium 4.4 mmol/L (3.3-5.1)
[2025-05-12 17:42] LABS: Troponin T High Sensitivity 27 ng/L (<=22)
[2025-05-12] MEDS: 0.9% Normal Saline (1000mL) 1,000 ML 150 ML IV (18:05)
[2025-05-12] MEDS: Piperacil/Tazobactam 4.5 GM in 0.9% Normal Saline (100mL MB+) 100 ML IV (18:42)
--- NOTE | 2025-05-12 18:52 | PCM.HP.STD ---
HPI - General General Date of Admission: 05/12/25 Date of Service: 05/12/25 Chief Complaint: Wheezing, rhonchi, hypoxia at SNF. HPI Narrative The patient is a 74 y/o M w/ PMHx: Former EtOH abuse, PAD s/p peripheral PCI, PAF reporting that he is on chronic Coumadin therapy, HTN, HLD, Chronic anemia/Fe deficiency anemia, COPD/Asthma w/ Chronic Hypoxic Respiratory Failure (2L NC), Seizure disorder, CKD stage III unclear subtype or GFR trending, GERD, BPH with obstructive pathology, Anxiety and depression, PJ, Former tobacco use, Hx CVA with significant chronic aphasia, dysphagia, R sided hemiplegia with PEG tube, recent discharge 05/08/2025 following evaluation and treatment for acute on chronic respiratory hypoxia secondary to COPD exacerbation discharged on prednisone therapy who now re-presents to the [facility] ED on 05/12/25 with correction facility noted hypoxia increased above his baseline noted to be 82 to 85% on his normal 2 L prompting them to contact EMS for evaluation with improvement to 100% when increased to 5 L with audible rhonchorous lung sounds per correction facility also noted and occasional wheezing with no recent fevers prompting transition for further evaluation. Workup in the ED included T98.1, heart rate 80, BP 150/67, respiratory rate 20, 95% on 4 L nasal cannula normally on 2 L baseline with most recent repeat vitals heart rate 85, BP 130/86, respiratory rate 28, 96% on 4 L nasal cannula, CBC with WC 15.4, Hgb 9.9, MCV 83.1, platelets 506 with left shift and lymphopenia, unremarkable coags, ABG with pH 7.48, bicarb 20.7, O2 saturation 90%, PaO2 55, pCO2 30.9 on nasal cannula, CMP with BUN/creatinine 38/0.97, GFR 81, glucose 136, AST/ALT 55/86, troponin initial 27 with repeat delta 27, lactic acid 1.8, urinalysis noted to be cloudy, specific gravity 1.010, protein 30, occult blood 25, positive nitrite, leukocyte esterase 25, urine RBCs 5-10, urine WBCs 5-10, urine bacteria 4+, blood culture x 2 pending per ED, urine culture pending per ED, rapid SARS COVID/influenza/RSV PCR negative, chest x-ray with patchy/streaky right basilar opacity suspicious for infiltrate. In the ED patient ministered maintenance IV fluids, DuoNeb therapy, Solu-Medrol 125 mg IV x 1 as well as Zosyn 4.5 g IV x 1. [facility] Medical History CVA (cerebral vascular accident) Aphasia Debility COPD (chronic obstructive pulmonary disease) Current use of intermediate designer anticoagulation History of atrial fibrillation Obstructive sleep apnea Seizure disorder Lupus anticoagulant disorder Bronchospasm, acute Aspiration into respiratory tract Acute and chronic respiratory failure with hypoxia Hypertension Dyspnea Acute CVA (cerebrovascular accident) Hypertension Weakness Failure to thrive Compression fx, lumbar spine Hypertension Falls Hypertension Closed fracture of right superior pubic ramus Multiple falls Compression fracture of thoracic vertebra Iron deficiency anemia Chronic respiratory failure with hypoxia Osteoporosis Lumbar compression fracture Compression fracture Hyperlipidemia Asthma Peripheral arterial occlusive disease Chronic obstructive pulmonary disease Coronary artery disease BPH (benign prostatic hyperplasia) Ulcerative colitis Peripheral vascular disease Anxiety COPD (chronic obstructive pulmonary disease) with emphysema Closed fracture of right inferior pubic ramus Acute UTI COPD (chronic obstructive pulmonary disease) UTI (urinary tract infection) Depression Diabetes Kidney stones Chronic pain Pancreatitis On home oxygen therapy Irregular heart beat Atrial fibrillation Stroke/cerebrovascular accident Smoker Falls frequently Seizures Sleep apnea COPD (chronic obstructive pulmonary disease) Asthma High cholesterol Tobacco abuse Home Medications Medication Instructions Recorded Last Taken Type acetaminophen 325 mg tablet 650 mg (2 x 325 mg) feeding tube 12/24/24 Unknown Rx Q6H PRN PRN Pain 1-10 Or Fever>100.7 #0 tabs amlodipine 10 mg tablet 10 mg G-tube DAILY.RT #0 tabs 12/24/24 Unknown Rx carbamazepine 100 mg/5 mL oral 200 mg (10 mL) G-tube 4X/DAY #0 mL 12/24/24 Unknown Rx suspension cholecalciferol (vitamin D3) 50 50 mcg feeding tube DAILY 12/24/24 01/05/25 Rx mcg (2,000 unit) tablet SUPPLEMENT 30 days #30 tabs clonidine 0.2 mg/24 hr weekly 0.2 mg transdermal Q7D blood 12/24/24 05/03/25 Rx transdermal patch pressure #0 ea ergocalciferol (vitamin D2) 1,250 1,250 mcg feeding tube Q7D 12/24/24 12/13/24 08:58 Rx mcg (50,000 unit) capsule (Vitamin SUPPLEMENT #0 caps D2) ipratropium 0.5 mg-albuterol 3 mg 3 ml inhalation .q6hwa #0 mL 12/24/24 Unknown Rx (2.5 mg base)/3 mL nebulization soln losartan 100 mg tablet 100 mg feeding tube DAILY Blood 12/24/24 12/13/24 08:58 Rx pressure 30 days #30 tabs mirtazapine 15 mg tablet 15 mg feeding tube QHS anti 12/24/24 12/12/24 20:59 Rx depressant 30 days #30 tabs sertraline 100 mg tablet 100 mg feeding tube DAILY 12/24/24 Unknown Rx DEPRESSION 30 days #30 tabs thiamine HCl (vitamin B1) 100 mg 100 mg G-tube BREAKFAST #0 tabs 12/24/24 Unknown Rx tablet hydralazine 25 mg tablet 50 mg G-tube 3XD blood pressure 01/03/25 Unknown History atorvastatin 40 mg tablet 40 mg G-tube QHS #0 tabs 01/08/25 Unknown Rx lansoprazole 30 mg capsule,delayed 30 mg feeding tube BID #1 cap 01/08/25 Unknown Rx release (Prevacid) apixaban 5 mg tablet (Eliquis) 2.5 mg G-tube BID blood thinner 05/03/25 Unknown History albuterol sulfate 2.5 mg/3 mL 2.5 mg (3 mL) inhalation Q2H PRN 05/08/25 Unknown Rx (0.083 %) solution for nebulization PRN Dyspnea, wheezing #0 mL menthol 0.44 %-zinc oxide 20.6 % 1 applic topical 4X/DAY #0 grams 05/08/25 Unknown Rx topical ointment (Calmoseptine) prednisone 20 mg tablet 20 mg PO DAILY #10 tabs 05/08/25 Unknown Rx bisacodyl 10 mg rectal suppository 10 mg CA PRN 05/12/25 Unknown History divalproex 125 mg tablet,delayed 125 mg PO BID 05/12/25 Unknown History release (Depakote) glucagon 1 mg solution for 1 mg IM Q20M PRN hypoglycemia 05/12/25 Unknown History injection (Glucagon Emergency Kit) guaifenesin 100 mg/5 mL oral 200 mg PO Q4H PRN congestion/COUGH 05/12/25 Unknown History liquid (Adult Wal-Tussin) magnesium hydroxide 400 mg/5 mL 30 ml PO DAILY 05/12/25 Unknown History oral suspension (Gentle Laxative (magnesium hydroxide)) metoprolol tartrate 50 mg tablet 50 mg feeding tube BID 05/12/25 Unknown History tamsulosin 0.4 mg capsule 0.4 mg PO QHS 05/12/25 Unknown History Allergy/AdvReac Type Severity Reaction Status Date / Time No Known Allergies Allergy Verified 05/12/25 16:21 Family History Mother Heart disease CVA (cerebral vascular accident) Hypertension Father Heart disease CVA (cerebral vascular accident) Hypertension Surgical History S/P arterial stent History of appendectomy Social History household members: caregiver housing: skilled nursing 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 Smoking Status: Light Smoker (<10/day) alcohol intake: former details: Former alcoholic quit several years ago substance use type: does not use caffeine: Yes Type: coffee Number of servings: 3 ROS Review of Systems ROS Unobtainable: due to mental condition Vital Signs Vital Signs Vital Signs: 05/12/25 16:17 05/12/25 16:21 05/12/25 16:22 Temperature 98.1 F 98.1 F Temperature Source Axillary Axillary Pulse Rate 80 82 Respiratory Rate 20 H 23 H Respiratory Effort Normal Respiratory Depth Shallow Respiratory Pattern Tachypnea Blood Pressure 154/67 H 154/67 H Blood Pressure Mean 96 96 Pulse Ox 95 95 Oxygen Delivery Method Nasal Cannula Nasal Cannula Oxygen Flow Rate (L/min) 4 4 05/12/25 16:27 05/12/25 16:29 05/12/25 16:30 Temperature Temperature Source Pulse Rate 80 81 Respiratory Rate 19 H 19 H Respiratory Effort Respiratory Depth Respiratory Pattern Blood Pressure Blood Pressure Mean Pulse Ox 96 95 95 Oxygen Delivery Method Room Air Oxygen Flow Rate (L/min) 4 05/12/25 16:45 05/12/25 17:00 05/12/25 17:02 Temperature Temperature Source Pulse Rate 94 81 Respiratory Rate 27 H 26 H Respiratory Effort Respiratory Depth Respiratory Pattern Blood Pressure Blood Pressure Mean Pulse Ox 98 Oxygen Delivery Method Nasal Cannula Oxygen Flow Rate (L/min) 4 05/12/25 17:15 05/12/25 17:20 05/12/25 17:30 Temperature 97.8 F Temperature Source Temporal Pulse Rate 84 84 85 Respiratory Rate 28 H 18 19 H Respiratory Effort Respiratory Depth Respiratory Pattern Blood Pressure 154/87 H Blood Pressure Mean 109 Pulse Ox 95 79 Oxygen Delivery Method Room Air Oxygen Flow Rate (L/min) 05/12/25 17:45 05/12/25 18:00 05/12/25 18:09 Temperature 98.6 F Temperature Source Axillary Pulse Rate 79 83 78 Respiratory Rate 21 H 17 20 H Respiratory Effort Respiratory Depth Respiratory Pattern Blood Pressure 167/82 H Blood Pressure Mean 110 Pulse Ox 95 86 95 Oxygen Delivery Method Nasal Cannula Oxygen Flow Rate (L/min) 05/12/25 18:09 05/12/25 18:15 Temperature Temperature Source Pulse Rate 80 85 Respiratory Rate 21 H 28 H Respiratory Effort Respiratory Depth Respiratory Pattern Blood Pressure 167/82 H 138/86 H Blood Pressure Mean 105 102 Pulse Ox 96 Oxygen Delivery Method Oxygen Flow Rate (L/min) Weight Weight: 135 lb 12.876 oz Body Mass Index (BMI) 18.3 Physical Exam Narrative Physical Examination: General: Awake, appears alert but not answering any orientation questions, extremely aphasic, laying in the ED bed, currently on supplemental oxygen, mildly agitated. Skin: Normal color, normal turgor, no icterus, no cyanosis except occasional stage ecchymoses, abrasions. HEENT: AT/NC, EOMI, chronic significant right pupil abnormality, mildly dry MM, chronic left facial droop. Lungs: Severely diffusely diminished, greater bases, mild increased respiratory rate but no overt distress, intermittent end expiratory wheeze, notably rhonchorous, worse bases, right greater than left. Heart: Regular rate and rhythm; no gallop, rub audible. Abdomen: Soft, NTTP, ND, normal BS, PEG tube in place, no appreciated HSM. Extremities: No cyanosis, no clubbing, no significant distal edema. Neurological: Awake, appears alert but not answering any orientation questions, extremely aphasic, cognitive function chronically significantly decreased secondary to previous stroke, cranial nerves difficult to assess given command difficulties with significant stroke deficits chronically, chronic pupillary changes as noted, global aphasia, intermittently moving extremities been ongoing any commands, history of chronic right-sided mild hemiplegia. Psychiatric: Affect appears currently mildly agitated, no acute evidence of depressive or anxiety feelings. Results Lab / Micro Data 05/12/25 16:25 05/12/25 16:25 Labs: Laboratory Results - last 24 hr 05/12/25 16:25: WBC 15.4 H, RBC 3.96 L, Hgb 9.9 L, Hct 32.9 L, MCV 83.1, MCH 25.0 L, MCHC 30.1 L, RDW Std Deviation 52.5 H, RDW Coeff of Aly 17.2 H, Plt Count 506 H, MPV 10.4, Immature Gran % (Auto) 1.900 H, Neut % (Auto) 89.5 H, Lymph % (Auto) 5.3 L, [place] % (Auto) 2.9, Eos % (Auto) 0.1, Baso % (Auto) 0.3, Absolute Neuts (auto) 13.8 H, Absolute Lymphs (auto) 0.82 L, Nucleated RBC % 0.2, PT 14.1, INR 1.1, APTT 34.9, Sodium 140, Potassium 4.4, Chloride 100, Carbon Dioxide 26.4, Anion Gap 14, BUN 38 H, Creatinine 0.97, Estim Creat Clear Calc 57.33, Est GFR (MDRD) Non-Af 81, BUN/Creatinine Ratio 39.5 H, Glucose 136 H, Lactic Acid 1.8, Calcium 9.9, Total Bilirubin < 0.15, AST 55 H, ALT 86 H, Alkaline Phosphatase 106, Troponin T High Sens 27 H D, Total Protein 7.0, Albumin 3.4, Globulin 3.7, Albumin/Globulin Ratio 0.9 05/12/25 16:35: Urine Color Yellow, Urine Clarity Cloudy, Urine pH 6.5, Ur Specific [place] 1.010, Urine Protein 30 H, Urine Glucose (UA) Normal, Urine Ketones Negative, Urine Occult Blood 25 H, Urine Nitrite Positive H, Urine Bilirubin Negative, Urine Urobilinogen Normal, Ur Leukocyte Esterase 25 H, Urine RBC 5-10 SEEN, Urine WBC 5-10 SEEN, Ur Squamous Epith Cells 5-10 SEEN, Urine Bacteria 4+, Urine Mucus 0 SEEN Micro: Microbiology 05/12/25 16:35 Mucosa - Nose SARS-CoV-2, Influenza & RSV (PCR) - Final ABG Data ABG results: ABG 05/12/25 16:46 Specimen Type ART Sample Site L Radial pH 7.48 H Bicarbonate Actual 28.7 H Total CO2 30 Base Excess 5 H O2 Saturation 90 L O2 % 4.0 ABG pCO2 38.9 ABG pO2 55 L Dann Test Positive O2 Delivery Device Cannula Vent Mode Not entered Imaging Radiology Impression Chest X-Ray 05/12/25 17:04 IMPRESSION: Patchy/streaky right basilar airspace opacities, possibly pneumonia. Reading Location: [id number] Assessment & Plan Assessment/Plan (1) Acute on chronic hypoxic respiratory failure: (2) Pneumonia: (3) COPD with exacerbation: PLAN: Plan The patient is a 74 y/o M w/ PMHx: Former EtOH abuse, PAD s/p peripheral PCI, PAF reporting that he is on chronic Coumadin therapy, HTN, HLD, Chronic anemia/Fe deficiency anemia, COPD/Asthma w/ Chronic Hypoxic Respiratory Failure (2L NC), Seizure disorder, CKD stage III unclear subtype or GFR trending, GERD, BPH with obstructive pathology, Anxiety and depression, PJ, Former tobacco use, Hx CVA with significant chronic aphasia, dysphagia, R sided hemiplegia with PEG tube, recent discharge 05/08/2025 following evaluation and treatment for acute on chronic respiratory hypoxia secondary to COPD exacerbation discharged on prednisone therapy who now re-presents to the [facility] ED on 05/12/25 with correction facility noted hypoxia increased above his baseline noted to be 82 to 85% on his normal 2 L prompting them to contact EMS for evaluation with improvement to 100% when increased to 5 L with audible rhonchorous lung sounds per correction facility also noted and occasional wheezing with no recent fevers prompting transition for further evaluation. #1. Acute on Chronic Hypoxic Respiratory Failure secondary to suspected right basilar pneumonia, possibly Aspiration component however risk present for gram-negative/gram-positive organisms given recent prolonged admission in addition to Acute on Chronic COPD/Asthma exacerbation: Will admit to [facility], will wean oxygen as able down to home 2 L nasal cannula, low threshold to utilize nightly BiPAP versus airvo as patient is noncompliant normally with PAP therapy unfortunately, will maintain on ATC duonebs, PRN albuterol, IV methylprednisolone, maintain on IV Zosyn as well as IV vancomycin with MRSA screen requested with de-escalation as able, HOB, IS parameters, will obtain sputum Cx, full respiratory viral panel, procalcitonin. PT/OT/ST/case management consulted for discharge planning. #2. Hx CVA with history of bilateral carotid stenosis: Patient skilled nursing dependent with significant chronic aphasia, R sided hemiplegia, dysphagia with PEG tube, will maintain on aspiration/fall precautions, continue tube feeds, continue Eliquis, statin, hypertensive regimen as noted. #3. Hypertension: Continue home regimen including clonidine TD, hydralazine, losartan, metoprolol, amlodipine with hold parameters, PRN hydralazine. #4. Chronic Kidney Disease Stage II per GFR trending: Admission BUN/Cr 38/0.97, GFR 81, baseline renal function 1.1-1.2 primarily, repeat BMP in AM. #5. Chronic normocytic anemia/iron deficient anemia: Admission hemoglobin 9.9, MCV 83.1, baseline hemoglobin more recently 9-10, stable, continue to trend. #6. PAF: Will continue patient home metoprolol regimen, will continue home Eliquis regimen cautiously. #7. Hyperlipidemia: Will continue patient on statin therapy. #8. Anxiety and depression: Will continue patient home sertraline and mirtazapine home regimen #9. BPH with obstructive pathology: Will continue patient on Flomax and finasteride regimen, monitor for retention. #10. GERD: Will continue patient on PPI. #11. Seizure disorder: Continue home carbamazepine regimen. #12. Former tobacco use: Encourage continued tobacco cessation. #13. PJ: Noncompliant with PAP therapy, will continue supplemental oxygen. #14. PAD: Will continue patient Eliquis, statin, hypertensive regimen as noted. #15. Former alcohol abuse: Encourage continued sobriety. #16. DVT prophylaxis: Will continue patient home Eliquis regimen. #17. CODE status: Per SNF paperwork Full Code. Charges/Coding Visit Charges Inpatient E&M: 07847 Init Hosp L3
[2025-05-12 18:54] LABS: Troponin T High Sens 2 HR 27 ng/L (<=22)
--- OUTSIDE RECORDS SUMMARY | 2025-05-12 19:50 | XMS RPT_ITS | CCD ---
Author Organization [facility] Care Team Providers Care Meal Cook Name Role Phone Selene RANDALL, Daija Primary Care Provider Madeline LEGAL SERVICES MANAGER, Beatriz Unavailable Unavailab johnson Morton [...] Ye Unavailable Shania DENISE, Emilie Smart Unavailable Rayn May MD Unavailable Geronimo Medina DO Unavailable [...] France Attending Darby MORTON MD, DR DAIJA Franec Primary Care Unavailsayra FRANCO MD, DR PRIYANKA Alatorre Attending Unavailable Dr. Raul Melchor Emergency Provider Dr. Андрей Cooley Attending Provider Dr. Daija Morton Primary Care Provider Dr. Huber Alvarado Emergency Provider AgDr. Fran torres Admit Provider Dr. Fran Cartwright Other Provider Dr. Frankie Galindo Attending Provider Unavailable Mateo, Other Provider Unavailable Dr. Celia Toribio Other Provider Dr. Elton Moore Other Provider [phone] Raul Melchor Emergency Provider Dr. Андрей [...] Lisha Talamantes DO Attending Provider Dr. Lisha Talamanets DO Other Provider Dr. Celia Toribio MD Attending Provider Catarino RANDALL, Dr. Yang Other Provider Oscar RANDALL, Dr. Wallace Other Provider Caesar RANDALL, Dr. Skinner Attending Provider Caesar RANDALL, Dr. Skinner Other Provider Selene RANDALL, Dr. Choe Primary Care Provider Rosa Maria RANDALL, Dr. Aguirre Attending Provider Unavaila ble Older OCCUP THER.LEGAL SERVICES MANAGER, Anjel Unavailable Aaron GUTIERREZ, Dr. Vizcaino Emergency [...] Provider Caesar RANDALL, Dr. Skinner Attending Provider Caesra RANDALL, Dr. Skinner Other Provider Rosa Maria [...] 9 Rolly RANDALL, Dr. Guzman Other Provider Hoagn RANDALL, Dr. Mcclure Other Provider [phone] [...] Other Provider Saul RANDALL, Jo Other Provider [phone] CELIA RANDALL, JOSETTE Other Provider Inez RANDALL, Angelo Other Provider [phone] Tanesha RANDALL, Neelam Other Provider Mikey [...] Provider Dr. Frankie Retana DO Referring Provider Mcakenzie Iniguez Attending Provider Dr. Lorraine Mena MD Referring Provider Dr. Daija Morton MD Referring Provider Jo-Ann WATERSHannah Chamorro Attending Provider Mateo RANDALL, Referring Provider Unavaila deandre Doss STAGE BUILDER-C, Josefa Attending Provider Trina RANDALL, Dr. Peters Primary Care Provider Trina RANDALL, Dr. Peters Attending Provider Trina RANDALL, Dr. Peters Primary Care Provider Romario STAGE BUILDER-C, Josefa Attending Provider Selene RANDALL, Dr. Choe [...] Toribio Consulting Unavailable Hannah Busch Attending Unavailable [facility] Unavailable [facility], Daija Referring Unavailable Josefa Doss NP Attending Unavailable [facility] Unavailable Lisha Talamantes Attending Unavailable [facility] Primary Care Unavailable White, Shilpa L Admitting Unavailable White, Shilpa L Consulting Unavailable Albin, Lisha Consulting Unavailable Yaya Talamantesyn Attending Unavailable [facility], Daija Primary Care Unavailable White, Shilpa L Admitting Unavailable White, Shilpa L Consulting Unavailable Albin, Lisha Admitting Unavailable Albin Lisha Consulting Unavailable Celia Toribio Attending Unavailable [facility] Primary Care Unavailable Celia Toribio Consulting Unavailable Ganta, Daija Primary Care Unavailable Roman Patel Admitting Unavailable Santiago, Paulino Attending Unavailable Adealeksandra, Amir Consulting Unavailable White, Shilpa L Referring [...] Unavailable Oleghe, Efewongbe Primary Care Unavailable [place] STAGE BUILDER, Josefa Attending Unavailable [place] STAGE BUILDER, Josefa Attending Unavailable Olee, Efewongbe Primary Care Unavailable Olee, Efewongbe Primary Care Unavailable Olee, Efewongbe Attending Unavailable Lisha Talamantes Attending Unavailable Dowell, Ricardo Consulting Unavailable Hinduja, Amy Consulting Unavailable [...] Consulting Unavailable Lisha Talamantes Referring Unavailable [place] STAGE BUILDER, Josefa Attending Unavailable [facility], [facility] Primary Care Unavailable Olee, Efewongbe Referring Unavailable [facility], [facility] Primary Care Unavailable Mackenzie Dangelo Attending Unavailable [place] STAGE BUILDER, Josefa Attending Unavailable [facility], Efewongbe Primary Care Unavailable Florencioton STAGE BUILDER, Josefa Attending Unavailable [facility], [facility] Primary Care Unavailable Roman Patel Consulting Unavailable Jorge Roman Admitting Unavailable Roman Patel Attending Unavailable [facility] Primary Care Unavailable Ricardo Mccullough Consulting Unavailable Lisha Talamantes Attending Unavailable [facility] Primary Care Unavailable Jorge Roman [...] Start: 08-22-2023 End: 12-24-2024 168 hr cloNIDine 0.26206 mg/ hr transdermal system (20 sources) Central [...] Comment on above: Take 1 capsule by [facility] once daily. traMADol hydrochloride 50 mg [...] unspecified emphysema type (HCC) Aerosol supplies Dx:J44.1 NPI#[id number] 1 Each 2 04/11/2018 02/02/2022 Discontinued (Duplicate Entry) Start: 04-11-2018 End: 02-02-2022 COMPOUNDED PRESCRIPTION Tamela cations: Pulmonary emphysema, unspecified emphysema type (HCC) NEBULIZER FOR HOME USE. DX: Emphysema, COPD 1 Each 3 04/11/2018 02/02/2022 Discontinued (Duplicate Entry) Start: 04-11-2018 COMPOUNDED PRE SCRIPTION Indications: Pulmonary emphysema, unspecified emphysema type (HCC) Aerosol supplies Dx:J44.1 NPI#[id number] 1 Each 2 04/11/2018 Active Start: 04-11-2018 COMPOUNDED PRE SCRIPTION Indications: Pulmonary emphysema, unspecified emphysema type (HCC) NEBULIZER FOR HOME USE. DX: Emphysema, COPD 1 Each 3 04/11/2018 Active Comment on above: Aerosol supplies Dx: J44.1 NPI#[id number] NEBULIZER FOR HOME U SE. DX: Emphysema, COPD 12 hr dextromethorphan hydrobromide 60 mg / guaiFENesin 1200 mg extended release oral tablet (20 sources) Uncompetitive Z-kzqnug-F-aspartate Receptor Antagonist, Sigma-1 Agonist Start: 09-02-2024 End: [...] fracture of L2 vertebra, initial encounter ([facility]) Take 1 capsule by mouth [...] on above: Take 1 capsule by mo [facility] once daily as needed for Constipation. [...] Corticosteroid, beta2-Adrenergic Agonist Start: 03-24-2020 End: 04-05-2021 tzifkkqqzkm-oxnutkafu-xw lanter (TRELEGY ELLIPTA) 100-62.5-25 mcg [The details [...] on above: Take 1 capsule by mo nch once daily. Take 2 capsules by m [...] End: 12-07-2015 Start: 12-02-2015 End: 12-07-2015 Ipratropium [place] (Atroven t (Sp)) 12.9 GM inhaler Discontinued 2 NMA INHALATION EVERY 6 HOURS December 02, 2015 12:00am December 07, 2015 10:01am Start: 12-02-2015 End: 12-07-2015 take 1 puff(s) by inhalation every six hours Ipratropium [place] (Atrovent (Sp)) 12.9 GM inhaler Discontinued 2 [...] mg tablet Indications: Coronary artery disease involving [place] coronary artery of [place] heart without angina pectoris Take 1 tablet [...] End: 12-07-2015 Start: 12-02-2015 End: 12-07-2015 Tiotropium [place] (Spiriva 18 Mcg) 1 PUFF inhaler Discontinued 1 NMA INHALATION DAILY December 02, 2015 12:00am December 07, 2015 10:02am Start: 12-02-2015 End: 12-07-2015 Start: 12-02-2015 End: 12-07-2015 take 1 puff(s) by inhalation once daily Tiotropium [place] (Spiriva 18 Mcg) 1 PUFF inhaler Discontinued 1 PUFF INHALATION DAILY December 01, 2015 11:00pm December 07, 2015 9:02am Start: 01-26-2014 End: 09-29-2015 Start: 01-26-2014 End: 09-29-2015 take 1 puff(s) by inhalation once daily Tiotropium [place] (Spiriva With Handihaler) 1 PUFF inhaler Discontinued 1 NMA INHALATION DAILY January 26, 2014 12:00am September 29, 2015 1:10pm Start: 01-26-2014 End: 09-29-2015 Start: 01-26-2014 End: 09-29-2015 take 1 puff(s) by inhalation once daily Tiotropium [place] (Spiriva With Handihaler) 1 PUFF inhaler Discontinued [...] ing 09/13/2021 Take 2 tablets by mo [facility] once daily. As dosed [...] Coronary arteriosclerosis; Translations: [Atherosclerotic heart disease of [place] coronary artery without angina pectoris] Onset: 3 [...] sources) Long-term current use of anticoagulant; Translations: [FCI (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 of anticoagulants] 02-09-2019 Episodic Comment on above: On warfarin Other aftercare (1 source) Prescribed medication regimen behavior finding; Translations: [FCI (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 of opiate analgesic] Episodic Other aftercare (20 sources) Drug therapy status; Translations: [FCI (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 of anticoagulants] 08-18-2021 Episodic Other aftercare (20 sources) wax specialist (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 of anticoagulants; Translations: [Long-term (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 of anticoagulants] Episodic Other aftercare (20 sources) Drug therapy finding; Translations: [wax specialist (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 of opiate analgesic] 02-09-2019 Episodic [...] 12-17-2019 Episodic Other aftercare (1 source) Other machine precision etcher (current) drug therapy; Translations: [Other machine precision etcher (current) drug therapy] Onset: 12-24-2024 Episodic Other [...] FAQ page (http://www.e-imo.co m/faq/vocabportal_fa q.aspx) or contact [facility] Customer Support at [email or web address] 03-20-2013 Results Test Name Value Interpretation Reference [...] Date: 03/18/2025 4:14:48 AM Ordering Provider: MAGDALENE PWOELL RP [facility] CT MAXILLOFACIAL W/O CONTRAS Ton 03-18-2025 CT [...] 4:22:40 AM Ordering Provider: MAGDALENE POWELL RP [facility] CT SPINE CERVICAL W/O CONTRA STon 03-18-2025 [...] AM Ordering Provider: MAGDALENE POWELL RP Normal [facility] Absolute lymphocyte countOrd ered By: Lorraine Mena on 02-18-2025 Lymphocytes Auto (Unsp spec) [#/Vol] 0.91 10*3/uL 0.83-4.51 [facility] Anion gap in Serum or Plasma Ordered By: Lorraine Mena on 02-18-2025 Anion gap [Moles/Vol] 12 mmol/L 5-15 [facility] Automated lymphocyte count a s percentage of total leukocytesOrdered By: Lorraine Mena on 02-18-2025 Lymphocytes/100 WBC Auto (Unsp spec) 9.9 % Low 19-41 [facility] BUN/creatinine ratioOrdered By: Lorraine Mena on 02-18-2025 Urea nitrogen/Creatinine [Mass ratio] 16.0 mg/mg 10-20 [facility] Basophil percentageOrdered B y: Lorraine Mena on 02-18-2025 Basophils/100 WBC (Bld) 0.5 % 0-1 [facility] Calculated very low density lipoprotein (VLDL) cholesterol measurementOrdered By: Lorraine Mena on 02-18-2025 Calculated very low density lipoprotein (VLDL) cholesterol measurement 17 mg/dL 5-40 [facility] Carbon dioxide, total [Moles /volume] in Central venous bloodOrdered By: ml Mena on 02-18-2025 CO2 [Moles/Vol] 26.0 mmol/L 21.0-32.0 [facility] Chloride assayOrdered By: Ledy Mena on 02-18-2025 Chloride [Moles/Vol] 99 mmol/L 98-108 [facility] Eosinophil percentageOrdered By: Lorraine Mena on 02-18-2025 Eosinophils/100 WBC (Bld) 0.4 % 0-5 [facility] Erythrocyte distribution wid th ratioOrdered By: [facility] M[facility] on 02-18-2025 Erythrocyte distribution width (RBC) [Ratio] 16.4 % High 11.6-14.6 [facility] Erythrocyte distribution wid th standard deviationOrdered By: Roselynwoodlandthao Mena on 02-18-2025 Erythrocyte distribution width (RBC) [Ratio] 51.2 fl High 35.1-43.9 [facility] Glomerular filtration rate ( GFR) estimation/1.73 sq m using serum, plasma, or whole bOrdered By: Lorraine Mena on 02-18-2025 GFR/1.73 sq M.predicted among non-blacks MDRD (S/P/Bld) [Vol rate/Area] 66 mL/min/{1.73_m2} >60 [facility] Hematocrit Auto (Bld) [Volum e fraction]Ordered By: Lorraine Mena on 02-18-2025 Hematocrit (Bld) [Volume fraction] 32.2 % Low 40-54 [facility] Hemoglobin measurementOrdere d By: Lorraine Mena on 02-18-2025 Hemoglobin (Bld) [Mass/Vol] 9.9 g/dL Low 13.0-16.5 [facility] Immature granulocytes/100 WB C Auto (Bld)Ordered By: Lorraine Mena on 02-18-2025 Immature granulocytes/100 WBC (Bld) 0.500 % 0.0-0.9 [facility] LDL calc ser/plasOrdered By: Ledyroelorri Mena on 02-18-2025 Cholesterol in LDL [Mass/Vol] 61 mg/dL [facility] MCV (mean corpuscular volume ) determinationOrdered By: ml Almonteemi on 02-18-2025 MCV (RBC) [Entitic vol] 85.6 fL 80-94 [facility] Mean corpuscular hemoglobin (MCH) determinationOrdered By: Lorraine Mena on 02-18-2025 MCH (RBC) [Entitic mass] 26.3 pg Low 27.0-32.0 [facility] Monocyte percentageOrdered B y: Lorraine Almonteemi on 02-18-2025 Monocytes/100 WBC (Bld) 5.9 % 0-10 [facility] Neutrophil percentageOrdered By: ml Mena on 02-18-2025 Neutrophils/100 WBC (Bld) 82.8 % High 47-70 [facility] Platelet countOrdered By: Ledy Mena on 02-18-2025 Platelets (Bld) [#/Vol] 454 10*3/uL High 150-450 [facility] Potassium measurement (mass/ volume)Ordered By: Ldeyroelorri Emmettbandaremi on 02-18-2025 Potassium (Unsp spec) [Mass/Vol] 4.0 mmol/L 3.3-5.1 [facility] RBC Auto (Bld) [#/Vol]Ordere d By: Lorraine Mena on 02-18-2025 RBC (Bld) [#/Vol] 3.76 10*6/uL Low 4.6-6.2 [facility] Serum creatinine measurement (mass/volume)Ordered By: Nettiethao Christinebandaremi on 02-18-2025 Creatinine [Mass/Vol] 1.16 mg/dL 0.70-1.20 [facility] Serum glucose measurement (m ass/volume)Ordered By: Lorraine Mena on 02-18-2025 Glucose [Mass/Vol] 112 mg/dL High 70-99 [facility] Serum or plasma calcium luis urement (mass/volume)Ordered By: Lorraine Mena on 02-18-2025 Calcium [Mass/Vol] 9.5 mg/dL 7.6-11.0 [facility] Serum or plasma cholesterol in HDL measurement (mass/volume)Ordered By: Lorraine Mena on 02-18-2025 Cholesterol in HDL [Mass/Vol] 96 mg/dL >40 [facility] Serum or plasma cholesterol measurement (mass/volume)Ordered By: Lorraine Mena on 02-18-2025 Cholesterol [Mass/Vol] 174 mg/dL <201 [facility] Serum or plasma urea nitroge n measurement (mass/volume)Ordered By: Lorraine Mena on 02-18-2025 Urea nitrogen [Mass/Vol] 19 mg/dL 4-19 [facility] Sodium levelOrdered By: Roselyn Mena on 02-18-2025 Sodium [Moles/Vol] 137 mmol/L 133-145 [facility] White blood cell (WBC) count Ordered By: Lorraine Mena on 02-18-2025 WBC (Bld) [#/Vol] 9.2 10*3/uL 4.4-11.0 [facility] Absolute lymphocyte countOrd ered By: Lorraine Mena on 02-11-2025 Lymphocytes Auto (Unsp spec) [#/Vol] 1.18 10*3/uL 0.83-4.51 [facility] Anion gap in Serum or Plasma Ordered By: Lorraine Mena on 02-11-2025 Anion gap [Moles/Vol] 11 mmol/L 5-15 [facility] Automated lymphocyte count a s percentage of total leukocytesOrdered By: Lorraine Mena on 02-11-2025 Lymphocytes/100 WBC Auto (Unsp spec) 16.0 % Low 19-41 [facility] BUN/creatinine ratioOrdered By: Lorraine Mena on 02-11-2025 Urea nitrogen/Creatinine [Mass ratio] 23.5 mg/mg High 10-20 [facility] Basophil percentageOrdered B y: Lorraine Christinebandaremi on 02-11-2025 Basophils/100 WBC (Bld) 0.7 % 0-1 [facility] Calculated very low density lipoprotein (VLDL) cholesterol measurementOrdered By: Lorraine Mena on 02-11-2025 Calculated very low density lipoprotein (VLDL) cholesterol measurement 19 mg/dL 5-40 [facility] Carbon dioxide, total [Moles /volume] in Central venous bloodOrdered By: Lorraine Mena on 02-11-2025 CO2 [Moles/Vol] 26.3 mmol/L 21.0-32.0 [facility] Chloride assayOrdered By: Ledy Mena on 02-11-2025 Chloride [Moles/Vol] 101 mmol/L 98-108 [facility] Eosinophil percentageOrdered By: Lorraine Mena on 02-11-2025 Eosinophils/100 WBC (Bld) 0.9 % 0-5 [facility] Erythrocyte distribution wid th ratioOrdered By: Lorraine Mena on 02-11-2025 Erythrocyte distribution width (RBC) [Ratio] 16.5 % High 11.6-14.6 [facility] Erythrocyte distribution wid th standard deviationOrdered By: Lorraine Mena on 02-11-2025 Erythrocyte distribution width (RBC) [Ratio] 51.8 fl High 35.1-43.9 [facility] Glomerular filtration rate ( GFR) estimation/1.73 sq m using serum, plasma, or whole bOrdered By: Lorraine Mena on 02-11-2025 GFR/1.73 sq M.predicted among non-blacks MDRD (S/P/Bld) [Vol rate/Area] 72 mL/min/{1.73_m2} >60 [facility] Hematocrit Auto (Bld) [Volum e fraction]Ordered By: Lorraine Mena on 02-11-2025 Hematocrit (Bld) [Volume fraction] 31.3 % Low 40-54 [facility] Hemoglobin measurementOrdere d By: Lorraine Mena on 02-11-2025 Hemoglobin (Bld) [Mass/Vol] 10.0 g/dL Low 13.0-16.5 [facility] Immature granulocytes/100 WB C Auto (Bld)Ordered By: Lorraine Mena on 02-11-2025 Immature granulocytes/100 WBC (Bld) 0.400 % 0.0-0.9 [facility] LDL calc ser/plasOrdered By: Lorraine Mena on 02-11-2025 Cholesterol in LDL [Mass/Vol] 56 mg/dL [facility] MCV (mean corpuscular volume ) determinationOrdered By: ml Mena on 02-11-2025 MCV (RBC) [Entitic vol] 86.5 fL 80-94 [facility] Mean corpuscular hemoglobin (MCH) determinationOrdered By: roewoodlandthao Mena on 02-11-2025 MCH (RBC) [Entitic mass] 27.6 pg 27.0-32.0 [facility] Monocyte percentageOrdered B y: Lorraine Mena on 02-11-2025 Monocytes/100 WBC (Bld) 9.3 % 0-10 [facility] Neutrophil percentageOrdered By: roewoodlandthao Mena on 02-11-2025 Neutrophils/100 WBC (Bld) 72.7 % High 47-70 [facility] Platelet countOrdered By: Ledy Mena on 02-11-2025 Platelets (Bld) [#/Vol] 457 10*3/uL High 150-450 [facility] Potassium measurement (mass/ volume)Ordered By: Lorraine Almonteemi on 02-11-2025 Potassium (Unsp spec) [Mass/Vol] 4.3 mmol/L 3.3-5.1 [facility] RBC Auto (Bld) [#/Vol]Ordere d By: Lorraine Mena on 02-11-2025 RBC (Bld) [#/Vol] 3.62 10*6/uL Low 4.6-6.2 [facility] Serum creatinine measurement (mass/volume)Ordered By: Lorraine Almonteemi on 02-11-2025 Creatinine [Mass/Vol] 1.07 mg/dL 0.70-1.20 [facility] Serum glucose measurement (m ass/volume)Ordered By: Lorraine Mena on 02-11-2025 Glucose [Mass/Vol] 78 mg/dL 70-99 [facility] Serum or plasma calcium luis urement (mass/volume)Ordered By: Lorraine Mena on 02-11-2025 Calcium [Mass/Vol] 9.6 mg/dL 7.6-11.0 [facility] Serum or plasma cholesterol in HDL measurement (mass/volume)Ordered By: Lorraine Mena on 02-11-2025 Cholesterol in HDL [Mass/Vol] 98 mg/dL >40 [facility] Serum or plasma cholesterol measurement (mass/volume)Ordered By: Lorraine Mena on 02-11-2025 Cholesterol [Mass/Vol] 173 mg/dL <201 [facility] Serum or plasma urea nitroge n measurement (mass/volume)Ordered By: Lorraine Mena on 02-11-2025 Urea nitrogen [Mass/Vol] 25 mg/dL High 4-19 [facility] Sodium levelOrdered By: Roselyn gauthierdaphney Trina on 02-11-2025 Sodium [Moles/Vol] 138 mmol/L 133-145 [facility] White blood cell (WBC) count Ordered By: Lorraine Mena on 02-11-2025 WBC (Bld) [#/Vol] 7.4 10*3/uL 4.4-11.0 [facility] Urine Legionella pneumophila antigen detectionOrdered By: Lorraine Mena on 02-09-2025 L. pneumophila Ag Ql (U) [facility] Absolute lymphocyte countOrd ered By: Lorraine Mena on 02-03-2025 Lymphocytes Auto (Unsp spec) [#/Vol] 1.05 10*3/uL 0.83-4.51 [facility] Anion gap in Serum or Plasma Ordered By: Lorraine Mena on 02-03-2025 Anion gap [Moles/Vol] 11 mmol/L 5-15 [facility] Automated lymphocyte count a s percentage of total leukocytesOrdered By: Lorraine Mena on 02-03-2025 Lymphocytes/100 WBC Auto (Unsp spec) 13.9 % Low 19-41 [facility] BUN/creatinine ratioOrdered By: Lorraine Mena on 02-03-2025 Urea nitrogen/Creatinine [Mass ratio] 20.3 mg/mg High 10-20 [facility] Basophil percentageOrdered B y: Lorraine Mena on 02-03-2025 Basophils/100 WBC (Bld) 0.8 % 0-1 [facility] Calculated very low density lipoprotein (VLDL) cholesterol measurementOrdered By: Lorraine Mena on 02-03-2025 Calculated very low density lipoprotein (VLDL) cholesterol measurement 25 mg/dL 5-40 [facility] Carbon dioxide, total [Moles /volume] in Central venous bloodOrdered By: Lorraine Mena on 02-03-2025 CO2 [Moles/Vol] 26.5 mmol/L 21.0-32.0 [facility] Chloride assayOrdered By: Ledy Mena on 02-03-2025 Chloride [Moles/Vol] 99 mmol/L 98-108 [facility] Eosinophil percentageOrdered By: Lorraine Mena on 02-03-2025 Eosinophils/100 WBC (Bld) 1.2 % 0-5 [facility] Erythrocyte distribution wid th ratioOrdered By: Lorraine Mena on 02-03-2025 Erythrocyte distribution width (RBC) [Ratio] 16.4 % High 11.6-14.6 [facility] Erythrocyte distribution wid th standard deviationOrdered By: Lorraine Mena on 02-03-2025 Erythrocyte distribution width (RBC) [Ratio] 52.5 fl High 35.1-43.9 [facility] Glomerular filtration rate ( GFR) estimation/1.73 sq m using serum, plasma, or whole bOrdered By: Lorraine Mena on 02-03-2025 GFR/1.73 sq M.predicted among non-blacks MDRD (S/P/Bld) [Vol rate/Area] 66 mL/min/{1.73_m2} >60 [facility] Hematocrit Auto (Bld) [Volum e fraction]Ordered By: Lorraine Mena on 02-03-2025 Hematocrit (Bld) [Volume fraction] 32.1 % Low 40-54 [facility] Hemoglobin measurementOrdere d By: Lorraine Mena on 02-03-2025 Hemoglobin (Bld) [Mass/Vol] 9.9 g/dL Low 13.0-16.5 [facility] Immature granulocytes/100 WB C Auto (Bld)Ordered By: Lorraine Mena on 02-03-2025 Immature granulocytes/100 WBC (Bld) 0.500 % 0.0-0.9 [facility] LDL calc ser/plasOrdered By: roewoodlandthao Mena on 02-03-2025 Cholesterol in LDL [Mass/Vol] 46 mg/dL [facility] MCV (mean corpuscular volume ) determinationOrdered By: Lorraine Mena on 02-03-2025 MCV (RBC) [Entitic vol] 87.2 fL 80-94 [facility] Mean corpuscular hemoglobin (MCH) determinationOrdered By: Lorraine Mena on 02-03-2025 MCH (RBC) [Entitic mass] 26.9 pg Low 27.0-32.0 [facility] Monocyte percentageOrdered B y: Lorraine Mena on 02-03-2025 Monocytes/100 WBC (Bld) 7.4 % 0-10 [facility] Neutrophil percentageOrdered By: Lorraine Mena on 02-03-2025 Neutrophils/100 WBC (Bld) 76.2 % High 47-70 [facility] Platelet countOrdered By: Ledy Mena on 02-03-2025 Platelets (Bld) [#/Vol] 423 10*3/uL 150-450 [facility] Potassium measurement (mass/ volume)Ordered By: Lorraine Mena on 02-03-2025 Potassium (Unsp spec) [Mass/Vol] 3.9 mmol/L 3.3-5.1 [facility] RBC Auto (Bld) [#/Vol]Ordere d By: Lorraine Mena on 02-03-2025 RBC (Bld) [#/Vol] 3.68 10*6/uL Low 4.6-6.2 [facility] Serum creatinine measurement (mass/volume)Ordered By: Lorraine Mena on 02-03-2025 Creatinine [Mass/Vol] 1.15 mg/dL 0.70-1.20 [facility] Serum glucose measurement (m ass/volume)Ordered By: Lorraine Mena on 02-03-2025 Glucose [Mass/Vol] 91 mg/dL 70-99 [facility] Serum or plasma calcium luis urement (mass/volume)Ordered By: Lorraine Mena on 02-03-2025 Calcium [Mass/Vol] 9.0 mg/dL 7.6-11.0 [facility] Serum or plasma cholesterol in HDL measurement (mass/volume)Ordered By: Lorraine Mena on 02-03-2025 Cholesterol in HDL [Mass/Vol] 88 mg/dL >40 [facility] Serum or plasma cholesterol measurement (mass/volume)Ordered By: Lorraine Mena on 02-03-2025 Cholesterol [Mass/Vol] 159 mg/dL <201 [facility] Serum or plasma urea nitroge n measurement (mass/volume)Ordered By: Lorraine Mena on 02-03-2025 Urea nitrogen [Mass/Vol] 23 mg/dL High 4-19 [facility] Sodium levelOrdered By: Roselyn gauthierdaphney Trina on 02-03-2025 Sodium [Moles/Vol] 136 mmol/L 133-145 [facility] - [place] White blood cell (WBC) count Ordered By: Lorraine Mena on 02-03-2025 WBC (Bld) [#/Vol] 7.5 10*3/uL 4.4-11.0 [facility] Absolute lymphocyte countOrd ered By: Lorraine Mena on 01-27-2025 Lymphocytes Auto (Unsp spec) [#/Vol] 1.04 10*3/uL 0.83-4.51 [facility] Anion gap in Serum or Plasma Ordered By: Lorraine Mena on 01-27-2025 Anion gap [Moles/Vol] 12 mmol/L 5-15 [facility] Automated lymphocyte count a s percentage of total leukocytesOrdered By: Lorraine Mena on 01-27-2025 Lymphocytes/100 WBC Auto (Unsp spec) 14.3 % Low 19-41 [facility] BUN/creatinine ratioOrdered By: Lorraine Mena on 01-27-2025 Urea nitrogen/Creatinine [Mass ratio] 23.2 mg/mg High 10-20 [facility] Basophil percentageOrdered B y: Lorraine Mena on 01-27-2025 Basophils/100 WBC (Bld) 0.7 % 0-1 [facility] Calculated very low density lipoprotein (VLDL) cholesterol measurementOrdered By: Lorraine Mena on 01-27-2025 Calculated very low density lipoprotein (VLDL) cholesterol measurement 17 mg/dL 5-40 [facility] Carbon dioxide, total [Moles /volume] in Central venous bloodOrdered By: Lorraine Mena on 01-27-2025 CO2 [Moles/Vol] 26.9 mmol/L 21.0-32.0 [facility] Chloride assayOrdered By: Ledy Mena on 01-27-2025 Chloride [Moles/Vol] 96 mmol/L Low 98-108 [facility] Eosinophil percentageOrdered By: Lorraine Mena on 01-27-2025 Eosinophils/100 WBC (Bld) 1.0 % 0-5 [facility] Erythrocyte distribution wid th ratioOrdered By: Lorraine Mena on 01-27-2025 Erythrocyte distribution width (RBC) [Ratio] 16.7 % High 11.6-14.6 [facility] Erythrocyte distribution wid th standard deviationOrdered By: Lorraine Mena on 01-27-2025 Erythrocyte distribution width (RBC) [Ratio] 53.6 fl High 35.1-43.9 [facility] Glomerular filtration rate ( GFR) estimation/1.73 sq m using serum, plasma, or whole bOrdered By: Lorraine Mena on 01-27-2025 GFR/1.73 sq M.predicted among non-blacks MDRD (S/P/Bld) [Vol rate/Area] 60 mL/min/{1.73_m2} >60 [facility] Hematocrit Auto (Bld) [Volum e fraction]Ordered By: Lorraine Mena on 01-27-2025 Hematocrit (Bld) [Volume fraction] 31.2 % Low 40-54 [facility] Hemoglobin measurementOrdere d By: Lorraine Mena on 01-27-2025 Hemoglobin (Bld) [Mass/Vol] 9.5 g/dL Low 13.0-16.5 [facility] Immature granulocytes/100 WB C Auto (Bld)Ordered By: Ledyroelisathao Christinebandaremi on 01-27-2025 Immature granulocytes/100 WBC (Bld) 0.600 % 0.0-0.9 [facility] LDL calc ser/plasOrdered By: roewoodlandthao Christinebandaremi on 01-27-2025 Cholesterol in LDL [Mass/Vol] 64 mg/dL [facility] MCV (mean corpuscular volume ) determinationOrdered By: Ledyroelorri Emmettbandaremi on 01-27-2025 MCV (RBC) [Entitic vol] 88.4 fL 80-94 [facility] Mean corpuscular hemoglobin (MCH) determinationOrdered By: Ledyml Christinebandaremi on 01-27-2025 MCH (RBC) [Entitic mass] 26.9 pg Low 27.0-32.0 [facility] Monocyte percentageOrdered B y: Lorraine Mena on 01-27-2025 Monocytes/100 WBC (Bld) 7.6 % 0-10 [facility] Neutrophil percentageOrdered By: roewoodlandthao Emmettalex on 01-27-2025 Neutrophils/100 WBC (Bld) 75.8 % High 47-70 [facility] Platelet countOrdered By: ml Emmettbandaremi on 01-27-2025 Platelets (Bld) [#/Vol] 413 10*3/uL 150-450 [facility] Potassium measurement (mass/ volume)Ordered By: Ledyroelisathao Christinebandaremi on 01-27-2025 Potassium (Unsp spec) [Mass/Vol] 4.4 mmol/L 3.3-5.1 [facility] RBC Auto (Bld) [#/Vol]Ordere d By: Lorraine Mena on 01-27-2025 RBC (Bld) [#/Vol] 3.53 10*6/uL Low 4.6-6.2 [facility] Serum creatinine measurement (mass/volume)Ordered By: Lorraine Mena on 01-27-2025 Creatinine [Mass/Vol] 1.25 mg/dL High 0.70-1.20 [facility] Serum glucose measurement (m ass/volume)Ordered By: Lorraine Mena on 01-27-2025 Glucose [Mass/Vol] 86 mg/dL 70-99 [facility] Serum or plasma calcium luis urement (mass/volume)Ordered By: Lorraine Mena on 01-27-2025 Calcium [Mass/Vol] 9.5 mg/dL 7.6-11.0 [facility] Serum or plasma cholesterol in HDL measurement (mass/volume)Ordered By: Lorraine Mena on 01-27-2025 Cholesterol in HDL [Mass/Vol] 81 mg/dL >40 [facility] Serum or plasma cholesterol measurement (mass/volume)Ordered By: Lorraine Mena on 01-27-2025 Cholesterol [Mass/Vol] 161 mg/dL <201 [facility] Serum or plasma urea nitroge n measurement (mass/volume)Ordered By: Lorraine Mena on 01-27-2025 Urea nitrogen [Mass/Vol] 29 mg/dL High 4-19 [facility] Sodium levelOrdered By: Roselyn Mena on 01-27-2025 Sodium [Moles/Vol] 135 mmol/L 133-145 [facility] White blood cell (WBC) count Ordered By: Lorraine Mena on 01-27-2025 WBC (Bld) [#/Vol] 7.3 10*3/uL 4.4-11.0 [facility] Absolute lymphocyte countOrd ered By: Lorraine Mena on 01-20-2025 Lymphocytes Auto (Unsp spec) [#/Vol] 0.97 10*3/uL 0.83-4.51 [facility] Anion gap in Serum or Plasma Ordered By: Lorraine Mena on 01-20-2025 Anion gap [Moles/Vol] 13 mmol/L 5-15 [facility] Automated lymphocyte count a s percentage of total leukocytesOrdered By: Lorraine Mena on 01-20-2025 Lymphocytes/100 WBC Auto (Unsp spec) 14.9 % Low 19-41 [facility] BUN/creatinine ratioOrdered By: Lorraine Mena on 01-20-2025 Urea nitrogen/Creatinine [Mass ratio] 20.4 mg/mg High 10-20 [facility] Basophil percentageOrdered B y: Lorraine Mena on 01-20-2025 Basophils/100 WBC (Bld) 0.6 % 0-1 [facility] Calculated very low density lipoprotein (VLDL) cholesterol measurementOrdered By: Lorraine Mena on 01-20-2025 Calculated very low density lipoprotein (VLDL) cholesterol measurement 16 mg/dL 5-40 [facility] Carbon dioxide, total [Moles /volume] in Central venous bloodOrdered By: Lorraine Mena on 01-20-2025 CO2 [Moles/Vol] 26.0 mmol/L 21.0-32.0 [facility] Chloride assayOrdered By: Ledy Mena on 01-20-2025 Chloride [Moles/Vol] 99 mmol/L 98-108 [facility] Eosinophil percentageOrdered By: Lorraine Mena on 01-20-2025 Eosinophils/100 WBC (Bld) 0.9 % 0-5 [facility] Erythrocyte distribution wid th ratioOrdered By: Lorraine Mena on 01-20-2025 Erythrocyte distribution width (RBC) [Ratio] 16.6 % High 11.6-14.6 [facility] Erythrocyte distribution wid th standard deviationOrdered By: Lorraine Mena on 01-20-2025 Erythrocyte distribution width (RBC) [Ratio] 54.0 fl High 35.1-43.9 [facility] Glomerular filtration rate ( GFR) estimation/1.73 sq m using serum, plasma, or whole bOrdered By: Lorraine Mena on 01-20-2025 GFR/1.73 sq M.predicted among non-blacks MDRD (S/P/Bld) [Vol rate/Area] 62 mL/min/{1.73_m2} >60 [facility] Hematocrit Auto (Bld) [Volum e fraction]Ordered By: Lorraine Mena on 01-20-2025 Hematocrit (Bld) [Volume fraction] 30.5 % Low 40-54 [facility] Hemoglobin measurementOrdere d By: Ledyroelisathao Christinebandaremi on 01-20-2025 Hemoglobin (Bld) [Mass/Vol] 9.4 g/dL Low 13.0-16.5 [facility] Immature granulocytes/100 WB C Auto (Bld)Ordered By: Lorraine Mena on 01-20-2025 Immature granulocytes/100 WBC (Bld) 0.500 % 0.0-0.9 [facility] LDL calc ser/plasOrdered By: roewoodlandthao Mena on 01-20-2025 Cholesterol in LDL [Mass/Vol] 45 mg/dL [facility] MCV (mean corpuscular volume ) determinationOrdered By: Roselynwoodlandthao Mena on 01-20-2025 MCV (RBC) [Entitic vol] 88.9 fL 80-94 [facility] Mean corpuscular hemoglobin (MCH) determinationOrdered By: Lorraine Mena on 01-20-2025 MCH (RBC) [Entitic mass] 27.4 pg 27.0-32.0 [facility] Monocyte percentageOrdered B y: Ledyroelisathao Christinebandaremi on 01-20-2025 Monocytes/100 WBC (Bld) 8.2 % 0-10 [facility] Neutrophil percentageOrdered By: Lorraine Mena on 01-20-2025 Neutrophils/100 WBC (Bld) 74.9 % High 47-70 [facility] Platelet countOrdered By: Ledy ellethao Mena on 01-20-2025 Platelets (Bld) [#/Vol] 405 10*3/uL 150-450 [facility] Potassium measurement (mass/ volume)Ordered By: Ledyml Mena on 01-20-2025 Potassium (Unsp spec) [Mass/Vol] 3.7 mmol/L 3.3-5.1 [facility] RBC Auto (Bld) [#/Vol]Ordere d By: Roselynlisathao Christinebandaremi on 01-20-2025 RBC (Bld) [#/Vol] 3.43 10*6/uL Low 4.6-6.2 [facility] Serum creatinine measurement (mass/volume)Ordered By: Lorraine Mena on 01-20-2025 Creatinine [Mass/Vol] 1.21 mg/dL High 0.70-1.20 [facility] Serum glucose measurement (m ass/volume)Ordered By: Lorraine Mena on 01-20-2025 Glucose [Mass/Vol] 149 mg/dL High 70-99 [facility] Serum or plasma calcium luis urement (mass/volume)Ordered By: Lorraine Mena on 01-20-2025 Calcium [Mass/Vol] 9.4 mg/dL 7.6-11.0 [facility] Serum or plasma cholesterol in HDL measurement (mass/volume)Ordered By: Lorraine Mena on 01-20-2025 Cholesterol in HDL [Mass/Vol] 75 mg/dL >40 [facility] Serum or plasma cholesterol measurement (mass/volume)Ordered By: Lorraine Mena on 01-20-2025 Cholesterol [Mass/Vol] 136 mg/dL <201 [facility] Serum or plasma urea nitroge n measurement (mass/volume)Ordered By: Lorraine Mena on 01-20-2025 Urea nitrogen [Mass/Vol] 25 mg/dL High 4-19 [facility] Sodium levelOrdered By: Roselyn Mena on 01-20-2025 Sodium [Moles/Vol] 137 mmol/L 133-145 [facility] White blood cell (WBC) count Ordered By: Lorraine Mena on 01-20-2025 WBC (Bld) [#/Vol] 6.5 10*3/uL 4.4-11.0 [facility] Absolute lymphocyte countOrd ered By: Lorraine Mena on 01-13-2025 Lymphocytes Auto (Unsp spec) [#/Vol] 0.97 10*3/uL 0.83-4.51 [facility] Anion gap in Serum or Plasma Ordered By: Lorraine Mena on 01-13-2025 Anion gap [Moles/Vol] 11 mmol/L 5-15 [facility] Automated lymphocyte count a s percentage of total leukocytesOrdered By: Lorraine Mena on 01-13-2025 Lymphocytes/100 WBC Auto (Unsp spec) 16.5 % Low 19-41 [facility] BUN/creatinine ratioOrdered By: Lorraine Mena on 01-13-2025 Urea nitrogen/Creatinine [Mass ratio] 17.7 mg/mg 10-20 [facility] Basophil percentageOrdered B y: Lorraine Mena on 01-13-2025 Basophils/100 WBC (Bld) 0.8 % 0-1 [facility] Calculated very low density lipoprotein (VLDL) cholesterol measurementOrdered By: Lorraine Mena on 01-13-2025 Calculated very low density lipoprotein (VLDL) cholesterol measurement 34 mg/dL 5-40 [facility] Carbon dioxide, total [Moles /volume] in Central venous bloodOrdered By: Lorraine Mena on 01-13-2025 CO2 [Moles/Vol] 27.7 mmol/L 21.0-32.0 [facility] Chloride assayOrdered By: Ledy Mena on 01-13-2025 Chloride [Moles/Vol] 101 mmol/L 98-108 [facility] Eosinophil percentageOrdered By: Lorraine Mena on 01-13-2025 Eosinophils/100 WBC (Bld) 1.0 % 0-5 [facility] Erythrocyte distribution wid th ratioOrdered By: Lorraine Mena on 01-13-2025 Erythrocyte distribution width (RBC) [Ratio] 16.1 % High 11.6-14.6 [facility] Erythrocyte distribution wid th standard deviationOrdered By: Lorraine Mena on 01-13-2025 Erythrocyte distribution width (RBC) [Ratio] 51.1 fl High 35.1-43.9 [facility] Glomerular filtration rate ( GFR) estimation/1.73 sq m using serum, plasma, or whole bOrdered By: Lorraine Mena on 01-13-2025 GFR/1.73 sq M.predicted among non-blacks MDRD (S/P/Bld) [Vol rate/Area] 70 mL/min/{1.73_m2} >60 [facility] Hematocrit Auto (Bld) [Volum e fraction]Ordered By: Lorraine Emmettbandaremi on 01-13-2025 Hematocrit (Bld) [Volume fraction] 31.4 % Low 40-54 [facility] Hemoglobin measurementOrdere d By: Lorraine Mena on 01-13-2025 Hemoglobin (Bld) [Mass/Vol] 9.9 g/dL Low 13.0-16.5 [facility] Immature granulocytes/100 WB C Auto (Bld)Ordered By: Lorraine Mena on 01-13-2025 Immature granulocytes/100 WBC (Bld) 0.500 % 0.0-0.9 [facility] LDL calc ser/plasOrdered By: [facility] Al[facility] on 01-13-2025 Cholesterol in LDL [Mass/Vol] 51 mg/dL [facility] MCV (mean corpuscular volume ) determinationOrdered By: roewoodlandthao Emmettbandaremi on 01-13-2025 MCV (RBC) [Entitic vol] 87.7 fL 80-94 [facility] Mean corpuscular hemoglobin (MCH) determinationOrdered By: Ledyroelorri Mena on 01-13-2025 MCH (RBC) [Entitic mass] 27.7 pg 27.0-32.0 [facility] Monocyte percentageOrdered B y: Lorraine Mena on 01-13-2025 Monocytes/100 WBC (Bld) 6.8 % 0-10 [facility] Neutrophil percentageOrdered By: Lorraine Mena on 01-13-2025 Neutrophils/100 WBC (Bld) 74.4 % High 47-70 [facility] Platelet countOrdered By: Ledy Mena on 01-13-2025 Platelets (Bld) [#/Vol] 421 10*3/uL 150-450 [facility] Potassium measurement (mass/ volume)Ordered By: Lorraine Mena on 01-13-2025 Potassium (Unsp spec) [Mass/Vol] 3.8 mmol/L 3.3-5.1 [facility] RBC Auto (Bld) [#/Vol]Ordere d By: Lorraine Mena on 01-13-2025 RBC (Bld) [#/Vol] 3.58 10*6/uL Low 4.6-6.2 [facility] Serum creatinine measurement (mass/volume)Ordered By: Lorraine Mena on 01-13-2025 Creatinine [Mass/Vol] 1.10 mg/dL 0.70-1.20 [facility] Serum glucose measurement (m ass/volume)Ordered By: Lorraine Mena on 01-13-2025 Glucose [Mass/Vol] 110 mg/dL High 70-99 [facility] Serum or plasma calcium luis urement (mass/volume)Ordered By: Lorraine Mena on 01-13-2025 Calcium [Mass/Vol] 9.2 mg/dL 7.6-11.0 [facility] Serum or plasma cholesterol in HDL measurement (mass/volume)Ordered By: Lorraine Mena on 01-13-2025 Cholesterol in HDL [Mass/Vol] 63 mg/dL >40 [facility] Serum or plasma cholesterol measurement (mass/volume)Ordered By: Lorraine Mena on 01-13-2025 Cholesterol [Mass/Vol] 147 mg/dL <201 [facility] Serum or plasma urea nitroge n measurement (mass/volume)Ordered By: Lorraine Mena on 01-13-2025 Urea nitrogen [Mass/Vol] 20 mg/dL High 4-19 [facility] Sodium levelOrdered By: Roselyn Mena on 01-13-2025 Sodium [Moles/Vol] 140 mmol/L 133-145 [facility] White blood cell (WBC) count Ordered By: Lorraine Mena on 01-13-2025 WBC (Bld) [#/Vol] 5.9 10*3/uL 4.4-11.0 [facility] Electrocardiogram reportOrde red By: Geronimo Downey on 01-07-2025 EKG study [facility] Other Phone: Absolute lymphocyte countOrd ered By: Frankie Galindo on 01-06-2025 Lymphocytes Auto (Unsp spec) [#/Vol] 0.58 10*3/uL Low 0.83-4.51 [facility] Anion gap in Serum or Plasma Ordered By: Frankie Galindo on 01-06-2025 Anion gap [Moles/Vol] 12 mmol/L 5-15 [facility] Automated lymphocyte count a s percentage of total leukocytesOrdered By: Frankie Galindo on 01-06-2025 Lymphocytes/100 WBC Auto (Unsp spec) 4.8 % Low 19-41 [facility] BUN/creatinine ratioOrdered By: Frankie Galindo on 01-06-2025 Urea nitrogen/Creatinine [Mass ratio] 14.2 mg/mg 10-20 [facility] Basophil percentageOrdered B y: Frankie Galindo on 01-06-2025 Basophils/100 WBC (Bld) 0.2 % 0-1 [facility] Carbon dioxide, total [Moles /volume] in Central venous bloodOrdered By: Frankie Galindo on 01-06-2025 CO2 [Moles/Vol] 27.9 mmol/L 21.0-32.0 [facility] Chloride assayOrdered By: Osiel Galindo on 01-06-2025 Chloride [Moles/Vol] 98 mmol/L 98-108 [facility] Eosinophil percentageOrdered By: Frankie Galindo on 01-06-2025 Eosinophils/100 WBC (Bld) 0.1 % 0-5 [facility] Erythrocyte distribution wid th ratioOrdered By: Frankie Galindo on 01-06-2025 Erythrocyte distribution width (RBC) [Ratio] 15.3 % High 11.6-14.6 [facility] Erythrocyte distribution wid th standard deviationOrdered By: Frankie Galindo on 01-06-2025 Erythrocyte distribution width (RBC) [Ratio] 49.7 fl High 35.1-43.9 [facility] Glomerular filtration rate ( GFR) estimation/1.73 sq m using serum, plasma, or whole bOrdered By: Frankie Galindo on 01-06-2025 GFR/1.73 sq M.predicted among non-blacks MDRD (S/P/Bld) [Vol rate/Area] 52 mL/min/{1.73_m2} Low >60 [facility] Hematocrit Auto (Bld) [Volum e fraction]Ordered By: Frankie Galindo on 01-06-2025 Hematocrit (Bld) [Volume fraction] 35.8 % Low 40-54 [facility] Hemoglobin measurementOrdere d By: Frankie Galindo on 01-06-2025 Hemoglobin (Bld) [Mass/Vol] 11.2 g/dL Low 13.0-16.5 [facility] Immature granulocytes/100 WB C Auto (Bld)Ordered By: Frankie Galindo on 01-06-2025 Immature granulocytes/100 WBC (Bld) 0.300 % 0.0-0.9 [facility] MCV (mean corpuscular volume ) determinationOrdered By: Frankie Galindo on 01-06-2025 MCV (RBC) [Entitic vol] 88.8 fL 80-94 [facility] Magnesium measurement (mass/ volume)Ordered By: Frankie Galindo on 01-06-2025 Magnesium (Unsp spec) [Mass/Vol] 2.1 mg/dL 1.5-2.2 [facility] Mean corpuscular hemoglobin (MCH) determinationOrdered By: Frankie Galindo on 01-06-2025 MCH (RBC) [Entitic mass] 27.8 pg 27.0-32.0 [facility] Monocyte percentageOrdered B y: Frankie Galindo on 01-06-2025 Monocytes/100 WBC (Bld) 7.0 % 0-10 [facility] Neutrophil percentageOrdered By: Frankie Galindo on 01-06-2025 Neutrophils/100 WBC (Bld) 87.6 % High 47-70 [facility] Platelet countOrdered By: Osiel Galindo on 01-06-2025 Platelets (Bld) [#/Vol] 385 10*3/uL 150-450 [facility] Potassium measurement (mass/ volume)Ordered By: Frankie Galindo on 01-06-2025 Potassium (Unsp spec) [Mass/Vol] 4.9 mmol/L 3.3-5.1 [facility] RBC Auto (Bld) [#/Vol]Ordere d By: Frankie Galindo on 01-06-2025 RBC (Bld) [#/Vol] 4.03 10*6/uL Low 4.6-6.2 [facility] Serum creatinine measurement (mass/volume)Ordered By: Frankie Galindo on 01-06-2025 Creatinine [Mass/Vol] 1.41 mg/dL High 0.70-1.20 [facility] Serum glucose measurement (m ass/volume)Ordered By: Frankie Galindo on 01-06-2025 Glucose [Mass/Vol] 111 mg/dL High 70-99 [facility] Serum or plasma calcium luis urement (mass/volume)Ordered By: Frankie Galindo on 01-06-2025 Calcium [Mass/Vol] 9.3 mg/dL 7.6-11.0 [facility] Serum or plasma urea nitroge n measurement (mass/volume)Ordered By: Frankie Galindo on 01-06-2025 Urea nitrogen [Mass/Vol] 20 mg/dL High 4-19 [facility] Sodium levelOrdered By: Matthew Galindo on 01-06-2025 Sodium [Moles/Vol] 138 mmol/L 133-145 [facility] Troponin T.cardiac [Mass/vol ume] in Serum or Plasma by High sensitivity methodOrdered By: Frankie Yi on 01-06-2025 Troponin T.cardiac High sensitivity method [Mass/Vol] 26 ng/L High <22 [facility] Troponin T.cardiac High sensitivity method [Mass/Vol] 23 ng/L High <22 [facility] White blood cell (WBC) count Ordered By: Frankie Galindo on 01-06-2025 WBC (Bld) [#/Vol] 12.0 10*3/uL High 4.4-11.0 [facility] Absolute lymphocyte countOrd ered By: Fco Monroy on 01-05-2025 Lymphocytes Auto (Unsp spec) [#/Vol] 1.45 10*3/uL 0.83-4.51 [facility] Anion gap in Serum or Plasma Ordered By: Fco Monroy on 01-05-2025 Anion gap [Moles/Vol] 14 mmol/L 5-15 [facility] Assessment of wrist artery p atency prior to arterial punctureOrdered By: Fco Monroy on 01-05-2025 Arterial patency Wrist artery --pre arterial puncture Positive [facility] Automated lymphocyte count a s percentage of total leukocytesOrdered By: Fco Monroy on 01-05-2025 Lymphocytes/100 WBC Auto (Unsp spec) 14.2 % Low 19-41 [facility] BUN/creatinine ratioOrdered By: Fco Monroy on 01-05-2025 Urea nitrogen/Creatinine [Mass ratio] 18.8 mg/mg 10- [facility] Basophil percentageOrdered B y: Fco Monroy on 01-05-2025 Basophils/100 WBC (Bld) 0.4 % 0-1 [facility] Bilirubin, totalOrdered By: Fco Monroy on 01-05-2025 Bilirubin [Mass/Vol] 0.25 mg/dL 0.00-1.30 [facility] Blood base excess determinat ionOrdered By: Fco Monroy on 01-05-2025 Base excess Calc (BldV) [Moles/Vol] 9 mmol/L High -2-2 [facility] Blood bicarbonate measuremen tOrdered By: Fco Monroy on 01-05-2025 HCO3 (Bld) [Moles/Vol] 33.0 mmol/L High 22-26 [facility] Blood cultureOrdered By: Sebastien Galindo on 01-05-2025 Bacteria identified Cx Nom (Bld) No growth in 5 days. [facility] CBC W/Diff, Automatedon 12-18 Absolute Lymph 1.45 X10 3/uL Normal 0.83-4.51 [facility] Comment on above: Performed By: #### L 100.0100, L500.4050, [id number] ####[facility] [id number] [place], [address] Absolute Neut 7.8 X10 3/uL High 2.0-7.7 [facility] Comment on above: Performed By: #### L 100.0100, [id number], [id number] ####[facility] [id number] [place], [address] Basophils/100 WBC (Bld) 0.4 % Normal 0-1 [facility] Comment on above: Performed By: #### L 100.0100, [id number], [id number] ####[facility] [id number] [place], [address] Eosinophils/100 WBC (Bld) 1.2 % Normal 0-5 [facility] Comment on above: Performed By: #### L 100.0100, [id number], [id number] ####[facility] [address] [place], [address] Erythrocyte distribution width (RBC) [Ratio] 15.1 % High 11.6-14.6 [facility] Comment on above: Performed By: #### L 100.0100, [id number], [id number] ####[facility] [address] [place], [address] Hematocrit (Bld) [Volume fraction] 39.6 % Low 40-54 [facility] Comment on above: Performed By: #### L 100.0100, [id number], [id number] ####[facility] [address] [place], [address] Hemoglobin (Bld) [Mass/Vol] 12.6 g/dL Low 13.0-16.5 [facility] Comment on above: Performed By: #### L 100.0100, [id number], [id number] ####[facility] [address] [place], [address] IG% 0.500 Normal 0.0-0.9 [facility] Comment on above: Result Comment: IG% - Immature Granulocytes (promyelocytes, myelocytes andmetamyelocytes) > 1% indicates that a LEFT SHIFT is Present. Performed By: #### L 100.0100, [id number], [id number] ####[facility] [address] [place], [address] Lymphocytes/100 WBC (Bld) 14.2 % Low 19-41 [facility] Comment on above: Performed By: #### L 100.0100, [id number], [id number] ####[facility] [address] [place], [address] MCH (RBC) [Entitic mass] 27.8 pg Normal 27.0-32.0 [facility] Comment on above: Performed By: #### L 100.0100, [id number], [id number] ####[facility] [address] [place], [address] MCHC (RBC) [Mass/Vol] 31.8 g/dL Low 32-36 [facility] Comment on above: Performed By: #### L 100.0100, [id number], [id number] ####[facility] [address] [place], [address] MCV (RBC) [Entitic vol] 87.4 fL Normal 80-94 [facility] Comment on above: Performed By: #### L 100.0100, [id number], [id number] ####[facility] [address] [place], [address] Monocytes/100 WBC (Bld) 7.0 % Normal 0-10 [facility] Comment on above: Performed By: #### L 100.0100, [id number], [id number] ####[facility] [address] [place], [address] Neutrophils/100 WBC (Bld) 76.7 % High 47-70 [facility] Comment on above: Performed By: #### L 100.0100, [id number], [id number] ####[facility] [address] [place], [address] Nucleated RBC (Bld) [#/Vol] 0 10*3/uL Normal 0-5 [facility] Comment on above: Performed By: #### L 100.0100, [id number], [id number] ####[facility] [address] [place], [address] Platelet mean volume (Bld) [Entitic vol] 9.8 fL Normal 6.2-12.0 [facility] Comment on above: Performed By: #### L 100.0100, [id number], [id number] ####[facility] [address] [place], [address] Platelets (Bld) [#/Vol] 462 10*3/uL High 150-450 [facility] Comment on above: Performed By: #### L 100.0100, L500.4050, L503.6005 ####[facility] [address] [place], [address] RBC (Bld) [#/Vol] 4.53 10*6/uL Low 4.6-6.2 [facility] Comment on above: Performed By: #### L 100.0100, L500.4050, L503.6005 ####[facility] [address] [place], [address] RDW SD 48.0 fl High 35.1-43.9 [facility] Comment on above: Performed By: #### L 100.0100, L500.4050, L503.6005 ####[facility] [address] [place], [address] WBC (Bld) [#/Vol] 10.2 10*3/uL Normal 4.4-11.0 [facility] Comment on above: Performed By: #### L 100.0100, L500.4050, L503.6005 ####[facility] [address] [place], [address] Carbon dioxide, total [Moles /volume] in Central venous bloodOrdered By: Fco Monroy on 01-05-2025 CO2 [Moles/Vol] 28.4 mmol/L 21.0-32.0 [facility] Chloride assayOrdered By: Ug o Monroy on 01-05-2025 Chloride [Moles/Vol] 93 mmol/L Low 98-108 [facility] Metabolic Prof ilon 01-05-2025 Albumin [Mass/Vol] 4.6 g/dL Normal 3.4-4.8 [facility] Comment on above: Performed By: #### L 100.0100, L500.4050, L503.6005 ####[facility] [address] [place], [address] Albumin/Globulin [Mass ratio] 1.4 {ratio} Normal 0.9-2.4 [facility] Comment on above: Performed By: #### L 100.0100, L500.4050, L503.6005 ####[facility] [address] [place], [address] ALK PHOS 83 U/L Normal 40-129 [facility] Comment on above: Performed By: #### L 100.0100, L500.4050, L503.6005 ####[facility] [address] [place], [address] ALT [Catalytic activity/Vol] 33 U/L Normal <=46 [facility] Comment on above: Performed By: #### L 100.0100, L500.4050, L503.6005 ####[facility] [address] [place], [address] AST [Catalytic activity/Vol] 32 U/L Normal <=37 [facility] Comment on above: Result Comment: Hemo lysis present, Results??could be affected.?? Performed By: #### L 100.0100, L500.4050, L503.6005 ####[facility] [address] [place], [address] Bilirubin [Mass/Vol] 0.25 mg/dL Normal 0.00-1.30 [facility] Comment on above: Performed By: #### L 100.0100, L500.4050, L503.6005 ####[facility] [address] [place], [address] BUN/CRE 18.8 RATIO Normal 10-20 [facility] Comment on above: Performed By: #### L 100.0100, L500.4050, L503.6005 ####[facility] [address] [place], [address] Calcium [Mass/Vol] 10.3 mg/dL Normal 7.6-11.0 [facility] Comment on above: Performed By: #### L 100.0100, L500.4050, L503.6005 ####[facility] [address] [place], [address] Chloride [Moles/Vol] 93 mmol/L Low 98-108 [facility] Comment on above: Performed By: #### L 100.0100, L500.4050, L503.6005 ####[facility] [address] [place], [address] CO2 [Moles/Vol] 28.4 mmol/L Normal 21.0-32.0 [facility] Comment on above: Performed By: #### L 100.0100, L500.4050, L503.6005 ####[facility] [address] [place], [address] Creatinine [Mass/Vol] 1.25 mg/dL High 0.70-1.20 [facility] Comment on above: Performed By: #### L 100.0100, L500.4050, L503.6005 ####[facility] [address] [place], [address] ECRCL 54.46 ml/min Normal 50-250 [facility] Comment on above: Performed By: #### L 100.0100, L500.4050, L503.6005 ####[facility] [address] [place], [address] GAP 14 Normal 5-15 [facility] Comment on above: Performed By: #### L 100.0100, L500.4050, L503.6005 ####[facility] [address] [place], [address] GFR/1.73 sq M.predicted among non-blacks MDRD (S/P/Bld) [Vol rate/Area] 60 mL/min/{1.73_m2} Normal >60 [facility] Comment on above: Result Comment: mL/m in/1.73m2 CKD-EPI Creatinine Equation (2020) Performed By: #### L 100.0100, L500.4050, L503.6005 ####[facility] [address] [place], [address] Globulin (S) [Mass/Vol] 3.2 g/dL Normal 2.2-4.2 [facility] Comment on above: Performed By: #### L 100.0100, L500.4050, L503.6005 ####[facility] [address] [place], [address] Glucose [Mass/Vol] 123 mg/dL High 70-99 [facility] Comment on above: Performed By: #### L 100.0100, L500.4050, L503.6005 ####[facility] [address] [place], [address] Potassium [Moles/Vol] 4.3 mmol/L Normal 3.3-5.1 [facility] Comment on above: Result Comment: Hemo lysis present, Results??could be affected.?? Performed By: #### L 100.0100, L500.4050, L503.6005 ####[facility] [address] [place], [address] Sodium [Moles/Vol] 135 mmol/L Normal 133-145 [facility] Comment on above: Performed By: #### L 100.0100, L500.4050, L503.6005 ####[facility] [address] [place], [address] T PROT 7.8 g/dL Normal 5.9-8.4 [facility] Comment on above: Performed By: #### L 100.0100, L500.4050, L503.6005 ####[facility] [address] [place], [address] Urea nitrogen [Mass/Vol] 24 mg/dL High 4-19 [facility] Comment on above: Performed By: #### L 100.0100, L500.4050, L503.6005 ####[facility] [address] [place], [address] Eosinophil percentageOrdered By: Fco Monroy on 01-05-2025 Eosinophils/100 WBC (Bld) 1.2 % 0-5 [facility] Erythrocyte distribution wid th ratioOrdered By: Fco Monroy on 01-05-2025 Erythrocyte distribution width (RBC) [Ratio] 15.1 % High 11.6-14.6 [facility] Erythrocyte distribution wid th standard deviationOrdered By: Fco Monroy on 01-05-2025 Erythrocyte distribution width (RBC) [Ratio] 48.0 fl High 35.1-43.9 [facility] Glomerular filtration rate ( GFR) estimation/1.73 sq m using serum, plasma, or whole bOrdered By: Fco Monroy on 01-05-2025 GFR/1.73 sq M.predicted among non-blacks MDRD (S/P/Bld) [Vol rate/Area] 60 mL/min/{1.73_m2} >60 [facility] Gram stainOrdered By: Frankie Galindo on 01-05-2025 Microscopic observation Gram stain Nom (Unsp spec) [facility] Hematocrit Auto (Bld) [Volum e fraction]Ordered By: Fco Monroy on 01-05-2025 Hematocrit (Bld) [Volume fraction] 39.6 % Low 40-54 [facility] Hemoglobin measurementOrdere d By: Fco Monroy on 01-05-2025 Hemoglobin (Bld) [Mass/Vol] 12.6 g/dL Low 13.0-16.5 [facility] Immature granulocytes/100 WB C Auto (Bld)Ordered By: Fco Monroy on 01-05-2025 Immature granulocytes/100 WBC (Bld) 0.500 % 0.0-0.9 [facility] Lactic Acidon 01-05-2025 Lactate [Moles/Vol] 1.1 mmol/L Normal 0.0-2.0 [facility] Comment on above: Order Comment: Y Performed By: #### L 100.0100, L500.4050, L503.6005 ####[facility] [address] [place], [place], [address] MCV (mean corpuscular volume ) determinationOrdered By: Fco Monroy on 01-05-2025 MCV (RBC) [Entitic vol] 87.4 fL 80-94 [facility] Mean corpuscular hemoglobin (MCH) determinationOrdered By: Fco Monroy on 01-05-2025 MCH (RBC) [Entitic mass] 27.8 pg 27.0-32.0 [facility] Measurement, pHOrdered By: Tahira Monroy on 01-05-2025 pH (Unsp spec) 7.45 [pH] 7.35-7.45 [facility] Microbial respiratory cultur eOrdered By: Frankie Galindo on 01-05-2025 Microorganism identified Cx Nom (Unsp spec) Proteus mirabilis Abnormal [facility] Monocyte percentageOrdered B y: Fco Monroy on 01-05-2025 Monocytes/100 WBC (Bld) 7.0 % 0-10 [facility] Neutrophil percentageOrdered By: Fco Monroy on 01-05-2025 Neutrophils/100 WBC (Bld) 76.7 % High 47-70 [facility] No Panel InformationOrdered By: Fco Monroy on 01-05-2025 ART [facility] L Radial [facility] Not entered [facility] Cannula [facility] 32 U/L <38 [facility] Platelet countOrdered By: Kellen Monroy on 01-05-2025 Platelets (Bld) [#/Vol] 462 10*3/uL High 150-450 [facility] Potassium measurement (mass/ volume)Ordered By: Fco Monroy on 01-05-2025 Potassium (Unsp spec) [Mass/Vol] 4.3 mmol/L 3.3-5.1 [facility] RBC Auto (Bld) [#/Vol]Ordere d By: Fco Monroy on 01-05-2025 RBC (Bld) [#/Vol] 4.53 10*6/uL Low 4.6-6.2 [facility] Respiratory pathogens detect ion panel by molecular detection methodOrdered By: Frankie Galindo on 01-05-2025 Respiratory pathogens DNA and RNA panel ALEENA+probe (Resp) [facility] [id number] By: Frankie Galindo on 01-05-2025 SARS-CoV-2 (COVID-19) RNA ALEENA+probe Ql (Unsp spec) [facility] Serum creatinine measurement (mass/volume)Ordered By: Fco Monroy on 01-05-2025 Creatinine [Mass/Vol] 1.25 mg/dL High 0.70-1.20 [facility] Serum globulin measurementOr dered By: Fco Monroy on 01-05-2025 Globulin (S) [Mass/Vol] 3.2 g/dL 2.2-4.2 [facility] Serum glucose measurement (m ass/volume)Ordered By: Fco Monroy on 01-05-2025 Glucose [Mass/Vol] 123 mg/dL High 70-99 [facility] Serum or plasma alanine saul otransferase (ALT) measurementOrdered By: Fco Monroy on 01-05-2025 ALT [Catalytic activity/Vol] 33 U/L <47 [facility] Serum or plasma albumin luis urement (mass/volume)Ordered By: Fco Monroy on 01-05-2025 Albumin [Mass/Vol] 4.6 g/dL 3.4-4.8 [facility] Serum or plasma albumin/glob ulin mass ratioOrdered By: Fco Monroy on 01-05-2025 Albumin/Globulin [Mass ratio] 1.4 {ratio} 0.9-2.4 [facility] Serum or plasma alkaline kathleen sphatase measurementOrdered By: Fco Monroy on 01-05-2025 ALP [Catalytic activity/Vol] 83 U/L 40-129 [facility] Serum or plasma calcium luis urement (mass/volume)Ordered By: Fco Monroy on 01-05-2025 Calcium [Mass/Vol] 10.3 mg/dL 7.6-11.0 [facility] Serum or plasma urea nitroge n measurement (mass/volume)Ordered By: Fco Monroy on 01-05-2025 Urea nitrogen [Mass/Vol] 24 mg/dL High 4-19 [facility] Sodium levelOrdered By: Fco Monroy on 01-05-2025 Sodium [Moles/Vol] 135 mmol/L 133-145 [facility] Total carbon dioxide measure mentOrdered By: Fco Monroy on 01-05-2025 CO2 [Moles/Vol] 35 mmol/L [facility] Total proteinOrdered By: Fco Monroy on 01-05-2025 Protein [Mass/Vol] 7.8 g/dL 5.9-8.4 [facility] Troponin T.cardiac [Mass/vol ume] in Serum or Plasma by High sensitivity methodOrdered By: Frankie Yi on 01-05-2025 Troponin T.cardiac High sensitivity method [Mass/Vol] 22 ng/L <22 [facility] Urine Legionella pneumophila antigen detectionOrdered By: Frankie Galindo on 01-05-2025 L. pneumophila Ag Ql (U) [facility] White blood cell (WBC) count Ordered By: Fco Monroy on 01-05-2025 WBC (Bld) [#/Vol] 10.2 10*3/uL 4.4-11.0 [facility] Abdomen Single View (Portabl e)on 01-03-2025 Abdomen Single View (Portable) Normal [facility] Brain/Head without Contrasto n 01-03-2025 Brain/Head without Contrast Normal [facility] Emergency Department Summary on 01-03-2025 Emergency Department Summary Normal [facility] Pelvis 1 or 2 Viewson 2024 Pelvis 1 or 2 Views Normal [facility] Spine Cervical without Contr ason 01-03-2025 Spine Cervical without Contras Normal [facility] Anion gap in Serum or Plasma Ordered By: Lorraine Mena on 12-31-2024 Anion gap [Moles/Vol] 12 mmol/L 5-15 [facility] BUN/creatinine ratioOrdered By: Lorraine Mena on 12-31-2024 Urea nitrogen/Creatinine [Mass ratio] 21.5 mg/mg High 10-20 [facility] Bilirubin, totalOrdered By: Lorraine Mena on 12-31-2024 Bilirubin [Mass/Vol] 0.17 mg/dL 0.00-1.30 [facility] Carbon dioxide, total [Moles /volume] in Central venous bloodOrdered By: Lorraine Mena on 12-31-2024 CO2 [Moles/Vol] 30.5 mmol/L 21.0-32.0 [facility] Chloride assayOrdered By: Ledy Mena on 12-31-2024 Chloride [Moles/Vol] 95 mmol/L Low 98-108 [facility] Glomerular filtration rate ( GFR) estimation/1.73 sq m using serum, plasma, or whole bOrdered By: Lorraine Mena on 12-31-2024 GFR/1.73 sq M.predicted among non-blacks MDRD (S/P/Bld) [Vol rate/Area] 64 mL/min/{1.73_m2} >60 [facility] No Panel InformationOrdered By: Lorraine Mena on 12-31-2024 34 U/L <38 [facility] Potassium measurement (mass/ volume)Ordered By: Lorraine Mena on 12-31-2024 Potassium (Unsp spec) [Mass/Vol] 3.9 mmol/L 3.3-5.1 [facility] Serum creatinine measurement (mass/volume)Ordered By: Lorraine Mena on 12-31-2024 Creatinine [Mass/Vol] 1.19 mg/dL 0.70-1.20 [facility] Serum globulin measurementOr dered By: Lorraine Mena on 12-31-2024 Globulin (S) [Mass/Vol] 2.9 g/dL 2.2-4.2 [facility] Serum glucose measurement (m ass/volume)Ordered By: Lorraine Mena on 12-31-2024 Glucose [Mass/Vol] 110 mg/dL High 70-99 [facility] Serum or plasma alanine saul otransferase (ALT) measurementOrdered By: Lorraine Mena on 12-31-2024 ALT [Catalytic activity/Vol] 35 U/L <47 [facility] Serum or plasma albumin luis urement (mass/volume)Ordered By: Lorraine Mena on 12-31-2024 Albumin [Mass/Vol] 3.9 g/dL 3.4-4.8 [facility] Serum or plasma albumin/glob ulin mass ratioOrdered By: Lorraine Mena on 12-31-2024 Albumin/Globulin [Mass ratio] 1.3 {ratio} 0.9-2.4 [facility] Serum or plasma alkaline kathleen sphatase measurementOrdered By: Lorraine Mena 12-31-2024 ALP [Catalytic activity/Vol] 63 U/L 40-129 [facility] Serum or plasma calcium luis urement (mass/volume)Ordered By: Lorraine Mena on 12-31-2024 Calcium [Mass/Vol] 10.1 mg/dL 7.6-11.0 [facility] Serum or plasma urea nitroge n measurement (mass/volume)Ordered By: Lorraine Mena on 12-31-2024 Urea nitrogen [Mass/Vol] 26 mg/dL High 4-19 [facility] Sodium levelOrdered By: Roselyn Mena on 12-31-2024 Sodium [Moles/Vol] 138 mmol/L 133-145 [facility] Total proteinOrdered By: David eMna on 12-31-2024 Protein [Mass/Vol] 6.9 g/dL 5.9-8.4 [facility] Absolute lymphocyte countOrd ered By: Lorraine Mena on 12-30-2024 Lymphocytes Auto (Unsp spec) [#/Vol] 1.08 10*3/uL 0.83-4.51 [facility] Anion gap in Serum or Plasma Ordered By: Lorraine Mena on 12-30-2024 Anion gap [Moles/Vol] 17 mmol/L High 5-15 [facility] Automated lymphocyte count a s percentage of total leukocytesOrdered By: Lorraine Mena on 12-30-2024 Lymphocytes/100 WBC Auto (Unsp spec) 14.4 % Low 19-41 [facility] BUN/creatinine ratioOrdered By: Lorraine Mena on 12-30-2024 Urea nitrogen/Creatinine [Mass ratio] 20.3 mg/mg High 10-20 [facility] Basophil percentageOrdered B y: Lorraine Mena on 12-30-2024 Basophils/100 WBC (Bld) 0.7 % 0-1 [facility] Bilirubin, totalOrdered By: Lorraine Mena on 12-30-2024 Bilirubin [Mass/Vol] 0.18 mg/dL 0.00-1.30 [facility] Carbon dioxide, total [Moles /volume] in Central venous bloodOrdered By: Lorraine Mena on 12-30-2024 CO2 [Moles/Vol] 28.7 mmol/L 21.0-32.0 [facility] Chloride assayOrdered By: Ledy roelorri Mena on 12-30-2024 Chloride [Moles/Vol] 94 mmol/L Low 98-108 [facility] Eosinophil percentageOrdered By: Lorraine Christinebandaremi on 12-30-2024 Eosinophils/100 WBC (Bld) 0.8 % 0-5 [facility] Erythrocyte distribution wid th ratioOrdered By: Lorraine Mena on 12-30-2024 Erythrocyte distribution width (RBC) [Ratio] 15.0 % High 11.6-14.6 [facility] Erythrocyte distribution wid th standard deviationOrdered By: Lorraine Mena on 12-30-2024 Erythrocyte distribution width (RBC) [Ratio] 47.7 fl High 35.1-43.9 [facility] Glomerular filtration rate ( GFR) estimation/1.73 sq m using serum, plasma, or whole bOrdered By: Lorraine Mena on 12-30-2024 GFR/1.73 sq M.predicted among non-blacks MDRD (S/P/Bld) [Vol rate/Area] 64 mL/min/{1.73_m2} >60 [facility] Hematocrit Auto (Bld) [Volum e fraction]Ordered By: Lorraine Mena on 12-30-2024 Hematocrit (Bld) [Volume fraction] 36.1 % Low 40-54 [facility] Hemoglobin measurementOrdere d By: Lorraine Mena on 12-30-2024 Hemoglobin (Bld) [Mass/Vol] 11.3 g/dL Low 13.0-16.5 [facility] Immature granulocytes/100 WB C Auto (Bld)Ordered By: Lorraine Mena on 12-30-2024 Immature granulocytes/100 WBC (Bld) 0.300 % 0.0-0.9 [facility] MCV (mean corpuscular volume ) determinationOrdered By: Lorraine Mena on 12-30-2024 MCV (RBC) [Entitic vol] 88.3 fL 80-94 [facility] Mean corpuscular hemoglobin (MCH) determinationOrdered By: Lorraine Mena on 12-30-2024 MCH (RBC) [Entitic mass] 27.6 pg 27.0-32.0 [facility] Monocyte percentageOrdered B y: Lorraine Mena on 12-30-2024 Monocytes/100 WBC (Bld) 9.6 % 0-10 [facility] Neutrophil percentageOrdered By: Lorraine Mena on 12-30-2024 Neutrophils/100 WBC (Bld) 74.2 % High 47-70 [facility] No Panel InformationOrdered By: Lorraine Mena on 12-30-2024 34 U/L <38 [facility] Platelet countOrdered By: Ledy Mena on 12-30-2024 Platelets (Bld) [#/Vol] 353 10*3/uL 150-450 [facility] Potassium measurement (mass/ volume)Ordered By: Lorraine Mena on 12-30-2024 Potassium (Unsp spec) [Mass/Vol] 4.2 mmol/L 3.3-5.1 [facility] RBC Auto (Bld) [#/Vol]Ordere d By: Lorraine Mena on 12-30-2024 RBC (Bld) [#/Vol] 4.09 10*6/uL Low 4.6-6.2 [facility] Serum creatinine measurement (mass/volume)Ordered By: Lorraine Mena on 12-30-2024 Creatinine [Mass/Vol] 1.19 mg/dL 0.70-1.20 [facility] Serum globulin measurementOr dered By: Lorraine Mena on 12-30-2024 Globulin (S) [Mass/Vol] 2.2 g/dL 2.2-4.2 [facility] Serum glucose measurement (m ass/volume)Ordered By: Lorraine Mena on 12-30-2024 Glucose [Mass/Vol] 105 mg/dL High 70-99 [facility] Serum or plasma alanine saul otransferase (ALT) measurementOrdered By: Lorraine Mena on 12-30-2024 ALT [Catalytic activity/Vol] 34 U/L <47 [facility] Serum or plasma albumin luis urement (mass/volume)Ordered By: Lorraine Mena on 12-30-2024 Albumin [Mass/Vol] 4.0 g/dL 3.4-4.8 [facility] Serum or plasma albumin/glob ulin mass ratioOrdered By: Lorraine Mena on 12-30-2024 Albumin/Globulin [Mass ratio] 1.8 {ratio} 0.9-2.4 [facility] Serum or plasma alkaline kathleen sphatase measurementOrdered By: Lorraine Mena on 12-30-2024 ALP [Catalytic activity/Vol] 62 U/L 40-129 [facility] Serum or plasma calcium luis urement (mass/volume)Ordered By: Lorraine Mena on 12-30-2024 Calcium [Mass/Vol] 9.8 mg/dL 7.6-11.0 [facility] Serum or plasma carbamazepin e level (mass/volume)Ordered By: Lorraine Mena on 12-30-2024 carBAMazepine [Mass/Vol] 10.8 ug/mL 4.0-12.0 [facility] Serum or plasma urea nitroge n measurement (mass/volume)Ordered By: Lorraine Mena on 12-30-2024 Urea nitrogen [Mass/Vol] 24 mg/dL High 4-19 [facility] Sodium levelOrdered By: Roselyn Mena on 12-30-2024 Sodium [Moles/Vol] 140 mmol/L 133-145 [facility] Total proteinOrdered By: David Mena on 12-30-2024 Protein [Mass/Vol] 6.3 g/dL 5.9-8.4 [facility] White blood cell (WBC) count Ordered By: Lorraine Mena on 12-30-2024 WBC (Bld) [#/Vol] 7.5 10*3/uL 4.4-11.0 [facility] Absolute lymphocyte countOrd ered By: Shilpa Contreras on 12-26-2024 Lymphocytes Auto (Unsp spec) [#/Vol] 0.66 10*3/uL Low 0.83-4.51 [facility] Anion gap in Serum or Plasma Ordered By: Shilpa Contreras on 12-26-2024 Anion gap [Moles/Vol] 12 mmol/L 5-15 [facility] Automated lymphocyte count a s percentage of total leukocytesOrdered By: Shilpa Ben on 12-26-2024 Lymphocytes/100 WBC Auto (Unsp spec) 6.5 % Low 19-41 [facility] BUN/creatinine ratioOrdered By: Shilpa Ben on 12-26-2024 Urea nitrogen/Creatinine [Mass ratio] 14.4 mg/mg 10-20 [facility] Basophil percentageOrdered B y: Shilpa Ben on 12-26-2024 Basophils/100 WBC (Bld) 0.3 % 0- [facility] Bilirubin, totalOrdered By: Shilpa Ben on 12-26-2024 Bilirubin [Mass/Vol] 0.23 mg/dL 0.00-1.30 [facility] CBC W/Diff, Automatedon 12-17 Absolute Lymph 0.66 X10 3/uL Low 0.83-4.51 [facility] Comment on above: Performed By: #### L 500.4050, L100.0100 ####[facility] [address] [place], [address] Absolute Neut 8.7 X10 3/uL High 2.0-7.7 [facility] Comment on above: Performed By: #### L 500.4050, L100.0100 ####[facility] [address] [place], [address] Basophils/100 WBC (Bld) 0.3 % Normal 0-1 [facility] Comment on above: Performed By: #### L 500.4050, L100.0100 ####[facility] [address] [place], [address] Eosinophils/100 WBC (Bld) 0.2 % Normal 0-5 [facility] Comment on above: Performed By: #### L 500.4050, L100.0100 ####[facility] [address] [place], [address] Erythrocyte distribution width (RBC) [Ratio] 14.7 % High 11.6-14.6 [facility] Comment on above: Performed By: #### L 500.4050, L100.0100 ####[facility] [address] [place], [address] Hematocrit (Bld) [Volume fraction] 35.8 % Low 40-54 [facility] Comment on above: Performed By: #### L 500.4050, L100.0100 ####[facility] [address] [place], [address] Hemoglobin (Bld) [Mass/Vol] 11.3 g/dL Low 13.0-16.5 [facility] Comment on above: Performed By: #### L 500.4050, L100.0100 ####[facility] [address] [place], [address] IG% 0.500 Normal 0.0-0.9 [facility] Comment on above: Result Comment: IG% - Immature Granulocytes (promyelocytes, myelocytes andmetamyelocytes) > 1% indicates that a LEFT SHIFT is Present. Performed By: #### L 500.4050, L100.0100 ####[facility] [address] [place], [address] Lymphocytes/100 WBC (Bld) 6.5 % Low 19-41 [facility] Comment on above: Performed By: #### L 500.4050, L100.0100 ####[facility] [address] [place], [address] MCH (RBC) [Entitic mass] 27.6 pg Normal 27.0-32.0 [facility] Comment on above: Performed By: #### L 500.4050, L100.0100 ####[facility] [address] [place], [address] MCHC (RBC) [Mass/Vol] 31.6 g/dL Low 32-36 [facility] Comment on above: Performed By: #### L 500.4050, L100.0100 ####[facility] [address] [place], [address] MCV (RBC) [Entitic vol] 87.3 fL Normal 80-94 [facility] Comment on above: Performed By: #### L 500.4050, L100.0100 ####[facility] [address] [place], [address] Monocytes/100 WBC (Bld) 7.8 % Normal 0-10 [facility] Comment on above: Performed By: #### L 500.4050, L100.0100 ####[facility] [address] [place], [address] Neutrophils/100 WBC (Bld) 84.7 % High 47-70 [facility] Comment on above: Performed By: #### L 500.4050, L100.0100 ####[facility] [address] [place], [address] Nucleated RBC (Bld) [#/Vol] 0 10*3/uL Normal 0-5 [facility] Comment on above: Performed By: #### L 500.4050, L100.0100 ####[facility] [id number] [place], [address] Platelet mean volume (Bld) [Entitic vol] 10.1 fL Normal 6.2-12.0 [facility] Comment on above: Performed By: #### L 500.4050, L100.0100 ####[facility] [address] [place], [address] Platelets (Bld) [#/Vol] 363 10*3/uL Normal 150-450 [facility] Comment on above: Performed By: #### L 500.4050, L100.0100 ####[facility] [address] [place], [address] RBC (Bld) [#/Vol] 4.10 10*6/uL Low 4.6-6.2 [facility] Comment on above: Performed By: #### L 500.4050, L100.0100 ####[facility] [address] [place], [address] RDW SD 46.5 fl High 35.1-43.9 [facility] Comment on above: Performed By: #### L 500.4050, L100.0100 ####[facility] [address] [place], [address] WBC (Bld) [#/Vol] 10.2 10*3/uL Normal 4.4-11.0 [facility] Comment on above: Performed By: #### L 500.4050, L100.0100 ####[facility] [address] [place], [address] Carbon dioxide, total [Moles /volume] in Central venous bloodOrdered By: Shilpa Ben on 12-26-2024 CO2 [Moles/Vol] 30.3 mmol/L 21.0-32.0 [facility] Chloride assayOrdered By: Kisha solares Ben on 12-26-2024 Chloride [Moles/Vol] 98 mmol/L 98-108 [facility] Comprehensive Metabolic Prof ilon 12-26-2024 Albumin [Mass/Vol] 3.7 g/dL Normal 3.4-4.8 [facility] Comment on above: Performed By: #### L 500.4050, L100.0100 ####[facility] [address] [place], [address] Albumin/Globulin [Mass ratio] 1.6 {ratio} Normal 0.9-2.4 [facility] Comment on above: Performed By: #### L 500.4050, L100.0100 ####[facility] [address] [place], [address] ALK PHOS 67 U/L Normal 40-129 [facility] Comment on above: Performed By: #### L 500.4050, L100.0100 ####[facility] [address] [place], [address] ALT [Catalytic activity/Vol] 19 U/L Normal <=46 [facility] Comment on above: Performed By: #### L 500.4050, L100.0100 ####[facility] [address] [place], [address] AST [Catalytic activity/Vol] 22 U/L Normal <=37 [facility] Comment on above: Performed By: #### L 500.4050, L100.0100 ####[facility] [address] [place], [address] Bilirubin [Mass/Vol] 0.23 mg/dL Normal 0.00-1.30 [facility] Comment on above: Performed By: #### L 500.4050, L100.0100 ####[facility] [address] [place], [address] BUN/CRE 14.4 RATIO Normal 10-20 [facility] Comment on above: Performed By: #### L 500.4050, L100.0100 ####[facility] [address] [place], [address] Calcium [Mass/Vol] 9.7 mg/dL Normal 7.6-11.0 [facility] Comment on above: Performed By: #### L 500.4050, L100.0100 ####[facility] [address] [place], [address] Chloride [Moles/Vol] 98 mmol/L Normal 98-108 [facility] Comment on above: Performed By: #### L 500.4050, L100.0100 ####[facility] [address] [place], [address] CO2 [Moles/Vol] 30.3 mmol/L Normal 21.0-32.0 [facility] Comment on above: Performed By: #### L 500.4050, L100.0100 ####[facility] [address] [place], [address] Creatinine [Mass/Vol] 1.07 mg/dL Normal 0.70-1.20 [facility] Comment on above: Performed By: #### L 500.4050, L100.0100 ####[facility] [address] [place], [address] ECRCL 57.71 ml/min Normal 50-250 [facility] Comment on above: Performed By: #### L 500.4050, L100.0100 ####[facility] [address] [place], [address] GAP 12 Normal 5-15 [facility] Comment on above: Performed By: #### L 500.4050, L100.0100 ####[facility] [address] [place], [address] GFR/1.73 sq M.predicted among non-blacks MDRD (S/P/Bld) [Vol rate/Area] 72 mL/min/{1.73_m2} Normal >60 [facility] Comment on above: Result Comment: mL/m in/1.73m2 CKD-EPI Creatinine Equation (2020) Performed By: #### L 500.4050, L100.0100 ####[facility] [address] [place], [address] Globulin (S) [Mass/Vol] 2.3 g/dL Normal 2.2-4.2 [facility] Comment on above: Performed By: #### L 500.4050, L100.0100 ####[facility] [address] [place], [address] Glucose [Mass/Vol] 142 mg/dL High 70-99 [facility] Comment on above: Performed By: #### L 500.4050, L100.0100 ####[facility] [address] [place], [address] Potassium [Moles/Vol] 3.4 mmol/L Normal 3.3-5.1 [facility] Comment on above: Performed By: #### L 500.4050, L100.0100 ####[facility] [address] [place], [address] Sodium [Moles/Vol] 140 mmol/L Normal 133-145 [facility] Comment on above: Performed By: #### L 500.4050, L100.0100 ####[facility] [address] [place], [address] T PROT 6.0 g/dL Normal 5.9-8.4 [facility] Comment on above: Performed By: #### L 500.4050, L100.0100 ####[facility] [address] [place], [place], [address] Urea nitrogen [Mass/Vol] 15 mg/dL Normal 4-19 [facility] Comment on above: Performed By: #### L 500.4050, L100.0100 ####[facility] [address] [place], [place], [address] Eosinophil percentageOrdered By: Shilpa Contreras on 12-26-2024 Eosinophils/100 WBC (Bld) 0.2 % 0-5 [facility] Erythrocyte distribution wid th ratioOrdered By: Ben on 12-26-2024 Erythrocyte distribution width (RBC) [Ratio] 14.7 % High 11.6-14.6 [facility] Erythrocyte distribution wid th standard deviationOrdered By: Shilpa Ben on 12-26-2024 Erythrocyte distribution width (RBC) [Ratio] 46.5 fl High 35.1-43.9 [facility] Glomerular filtration rate ( GFR) estimation/1.73 sq m using serum, plasma, or whole bOrdered By: Shilpa Ben on 12-26-2024 GFR/1.73 sq M.predicted among non-blacks MDRD (S/P/Bld) [Vol rate/Area] 72 mL/min/{1.73_m2} >60 [facility] Hematocrit Auto (Bld) [Volum e fraction]Ordered By: Shilpa Contreras 12-26-2024 Hematocrit (Bld) [Volume fraction] 35.8 % Low 40-54 [facility] Hemoglobin measurementOrdere d By: Shilpa Contreras on 12-26-2024 Hemoglobin (Bld) [Mass/Vol] 11.3 g/dL Low 13.0-16.5 [facility] Immature granulocytes/100 WB C Auto (Bld)Ordered By: Shilpa Ben 12-26-2024 Immature granulocytes/100 WBC (Bld) 0.500 % 0.0-0.9 [facility] MCV (mean corpuscular volume ) determinationOrdered By: Shilpa Contreras 12-26-2024 MCV (RBC) [Entitic vol] 87.3 fL 80-94 [facility] Mean corpuscular hemoglobin (MCH) determinationOrdered By: Shilpa Contreras on 12-26-2024 MCH (RBC) [Entitic mass] 27.6 pg 27.0-32.0 [facility] Monocyte percentageOrdered B y: Shilpa Contreras on 12-26-2024 Monocytes/100 WBC (Bld) 7.8 % 0-10 [facility] Neutrophil percentageOrdered By: Shilpa Ben on 12-26-2024 Neutrophils/100 WBC (Bld) 84.7 % High 47-70 [facility] No Panel InformationOrdered By: Shilpa Contreras on 12-26-2024 22 U/L <38 [facility] Platelet countOrdered By: Kisha solares Ben on 12-26-2024 Platelets (Bld) [#/Vol] 363 10*3/uL 150-450 [facility] Potassium measurement (mass/ volume)Ordered By: Shilpa Contreras on 12-26-2024 Potassium (Unsp spec) [Mass/Vol] 3.4 mmol/L 3.3-5.1 [facility] RBC Auto (Bld) [#/Vol]Ordere d By: Shilpa Contreras on 12-26-2024 RBC (Bld) [#/Vol] 4.10 10*6/uL Low 4.6-6.2 [facility] Serum creatinine measurement (mass/volume)Ordered By: Shilpa Contreras on 12-26-2024 Creatinine [Mass/Vol] 1.07 mg/dL 0.70-1.20 [facility] Serum globulin measurementOr dered By: Shilpa Contreras 12-26-2024 Globulin (S) [Mass/Vol] 2.3 g/dL 2.2-4.2 [facility] Serum glucose measurement (m ass/volume)Ordered By: Shilpa Contreras 12-26-2024 Glucose [Mass/Vol] 142 mg/dL High 70-99 [facility] Serum or plasma alanine saul otransferase (ALT) measurementOrdered By: Shilpa Contreras 12-26-2024 ALT [Catalytic activity/Vol] 19 U/L <47 [facility] Serum or plasma albumin luis urement (mass/volume)Ordered By: Shilpa Contreras on 12-26-2024 Albumin [Mass/Vol] 3.7 g/dL 3.4-4.8 [facility] Serum or plasma albumin/glob ulin mass ratioOrdered By: Shilpa Contreras on 12-26-2024 Albumin/Globulin [Mass ratio] 1.6 {ratio} 0.9-2.4 [facility] Serum or plasma alkaline kathleen sphatase measurementOrdered By: Shilpa Ben on 12-26-2024 ALP [Catalytic activity/Vol] 67 U/L 40-129 [facility] Serum or plasma calcium luis urement (mass/volume)Ordered By: Shilpa Contreras on 12-26-2024 Calcium [Mass/Vol] 9.7 mg/dL 7.6-11.0 [facility] Serum or plasma urea nitroge n measurement (mass/volume)Ordered By: Shilpa Contreras on 12-26-2024 Urea nitrogen [Mass/Vol] 15 mg/dL 4-19 [facility] Sodium levelOrdered By: Rovertou mn Ben on 12-26-2024 Sodium [Moles/Vol] 140 mmol/L 133-145 [facility] Total proteinOrdered By: Roverto umn Ben on 12-26-2024 Protein [Mass/Vol] 6.0 g/dL 5.9-8.4 [facility] White blood cell (WBC) count Ordered By: Shilpa Contreras on 12-26-2024 WBC (Bld) [#/Vol] 10.2 10*3/uL 4.4-11.0 [facility] CBC W/Diff, Automatedon 07-0 Absolute Lymph 0.96 X10 3/uL Normal 0.83-4.51 [facility] Comment on above: Performed By: #### L 501.5200, L100.0100, L500.4050 ####[facility] [address] [place], [address] Absolute Neut 9.8 X10 3/uL High 2.0-7.7 [facility] Comment on above: Performed By: #### L 501.5200, L100.0100, L500.4050 ####[facility] [address] [place], [address] Basophils/100 WBC (Bld) 0.3 % Normal 0-1 [facility] Comment on above: Performed By: #### L 501.5200, L100.0100, L500.4050 ####[facility] [address] [place], [address] Eosinophils/100 WBC (Bld) 0.3 % Normal 0-5 [facility] Comment on above: Performed By: #### L 501.5200, L100.0100, L500.4050 ####[facility] [address] [place], [address] Erythrocyte distribution width (RBC) [Ratio] 14.5 % Normal 11.6-14.6 [facility] Comment on above: Performed By: #### L 501.5200, L100.0100, L500.4050 ####[facility] [address] [place], [address] Hematocrit (Bld) [Volume fraction] 40.5 % Normal 40-54 [facility] Comment on above: Performed By: #### L 501.5200, L100.0100, L500.4050 ####[facility] [address] [place], [address] Hemoglobin (Bld) [Mass/Vol] 12.5 g/dL Low 13.0-16.5 [facility] Comment on above: Performed By: #### L 501.5200, L100.0100, L500.4050 ####[facility] [address] [place], [address] IG% 0.700 Normal 0.0-0.9 [facility] Comment on above: Result Comment: IG% - Immature Granulocytes (promyelocytes, myelocytes andmetamyelocytes) > 1% indicates that a LEFT SHIFT is Present. Performed By: #### L 501.5200, L100.0100, L500.4050 ####[facility] [address] [place], [address] Lymphocytes/100 WBC (Bld) 8.0 % Low 19-41 [facility] Comment on above: Performed By: #### L 501.5200, L100.0100, L500.4050 ####[facility] [address] [place], [address] MCH (RBC) [Entitic mass] 27.4 pg Normal 27.0-32.0 [facility] Comment on above: Performed By: #### L 501.5200, L100.0100, L500.4050 ####[facility] [address] [place], [address] MCHC (RBC) [Mass/Vol] 30.9 g/dL Low 32-36 [facility] Comment on above: Performed By: #### L 501.5200, L100.0100, L500.4050 ####[facility] [address] [place], [address] MCV (RBC) [Entitic vol] 88.6 fL Normal 80-94 [facility] Comment on above: Performed By: #### L 501.5200, L100.0100, L500.4050 ####[facility] [address] [place], [address] Monocytes/100 WBC (Bld) 8.4 % Normal 0-10 [facility] Comment on above: Performed By: #### L 501.5200, L100.0100, L500.4050 ####[facility] [address] [place], [address] Neutrophils/100 WBC (Bld) 82.3 % High 47-70 [facility] Comment on above: Performed By: #### L 501.5200, L100.0100, L500.4050 ####[facility] [address] [place], [address] Nucleated RBC (Bld) [#/Vol] 0 10*3/uL Normal 0-5 [facility] Comment on above: Performed By: #### L 501.5200, L100.0100, L500.4050 ####[facility] [address] [place], [address] Platelet mean volume (Bld) [Entitic vol] 10.2 fL Normal 6.2-12.0 [facility] Comment on above: Performed By: #### L 501.5200, L100.0100, L500.4050 ####[facility] [address] [place], [address] Platelets (Bld) [#/Vol] 449 10*3/uL Normal 150-450 [facility] Comment on above: Performed By: #### L 501.5200, L100.0100, L500.4050 ####[facility] [address] [place], [address] RBC (Bld) [#/Vol] 4.57 10*6/uL Low 4.6-6.2 [facility] Comment on above: Performed By: #### L 501.5200, L100.0100, L500.4050 ####[facility] [address] [place], [address] RDW SD 45.9 fl High 35.1-43.9 [facility] Comment on above: Performed By: #### L 501.5200, L100.0100, L500.4050 ####[facility] [address] [place], [address] WBC (Bld) [#/Vol] 12.0 10*3/uL High 4.4-11.0 [facility] Comment on above: Performed By: #### L 501.5200, L100.0100, L500.4050 ####[facility] [address] [place], [address] Comprehensive Metabolic Prof il12-25-2024 Albumin [Mass/Vol] 4.0 g/dL Normal 3.4-4.8 [facility] Comment on above: Performed By: #### L 501.5200, L100.0100, L500.4050 ####[facility] [address] [place], [address] Albumin/Globulin [Mass ratio] 1.5 {ratio} Normal 0.9-2.4 [facility] Comment on above: Performed By: #### L 501.5200, L100.0100, L500.4050 ####[facility] [address] [place], [address] ALK PHOS 74 U/L Normal 40-129 [facility] Comment on above: Performed By: #### L 501.5200, L100.0100, L500.4050 ####[facility] [address] [place], [address] ALT [Catalytic activity/Vol] 22 U/L Normal <=46 [facility] Comment on above: Performed By: #### L 501.5200, L100.0100, L500.4050 ####[facility] [address] [place], [address] AST [Catalytic activity/Vol] 31 U/L Normal <=37 [facility] Comment on above: Performed By: #### L 501.5200, L100.0100, L500.4050 ####[facility] [address] [place], [address] Bilirubin [Mass/Vol] 0.23 mg/dL Normal 0.00-1.30 [facility] Comment on above: Performed By: #### L 501.5200, L100.0100, L500.4050 ####[facility] [address] [place], [address] BUN/CRE 13.4 RATIO Normal 10-20 [facility] Comment on above: Performed By: #### L 501.5200, L100.0100, L500.4050 ####[facility] [address] [place], [address] Calcium [Mass/Vol] 9.5 mg/dL Normal 7.6-11.0 [facility] Comment on above: Performed By: #### L 501.5200, L100.0100, L500.4050 ####[facility] [address] [place], [address] Chloride [Moles/Vol] 101 mmol/L Normal 98-108 [facility] Comment on above: Performed By: #### L 501.5200, L100.0100, L500.4050 ####[facility] [address] [place], [address] CO2 [Moles/Vol] 27.5 mmol/L Normal 21.0-32.0 [facility] Comment on above: Performed By: #### L 501.5200, L100.0100, L500.4050 ####[facility] [address] [place], [address] Creatinine [Mass/Vol] 1.05 mg/dL Normal 0.70-1.20 [facility] Comment on above: Performed By: #### L 501.5200, L100.0100, L500.4050 ####[facility] [address] [place], [address] ECRCL 58.81 ml/min Normal 50-250 [facility] Comment on above: Performed By: #### L 501.5200, L100.0100, L500.4050 ####[facility] [address] [place], [address] GAP 12 Normal 5-15 [facility] Comment on above: Performed By: #### L 501.5200, L100.0100, L500.4050 ####[facility] [address] [place], [address] GFR/1.73 sq M.predicted among non-blacks MDRD (S/P/Bld) [Vol rate/Area] 74 mL/min/{1.73_m2} Normal >60 [facility] Comment on above: Result Comment: mL/m in/1.73m2 CKD-EPI Creatinine Equation (2020) Performed By: #### L 501.5200, L100.0100, L500.4050 ####[facility] [address] [place], [address] Globulin (S) [Mass/Vol] 2.7 g/dL Normal 2.2-4.2 [facility] Comment on above: Performed By: #### L 501.5200, L100.0100, L500.4050 ####[facility] [address] [place], [address] Glucose [Mass/Vol] 118 mg/dL High 70-99 [facility] Comment on above: Performed By: #### L 501.5200, L100.0100, L500.4050 ####[facility] [address] [place], [address] Potassium [Moles/Vol] 3.3 mmol/L Normal 3.3-5.1 [facility] Comment on above: Performed By: #### L 501.5200, L100.0100, L500.4050 ####[facility] [address] [place], [address] Sodium [Moles/Vol] 141 mmol/L Normal 133-145 [facility] Comment on above: Performed By: #### L 501.5200, L100.0100, L500.4050 ####[facility] [address] [place], [address] T PROT 6.7 g/dL Normal 5.9-8.4 [facility] Comment on above: Performed By: #### L 501.5200, L100.0100, L500.4050 ####[facility] [address] [place], [address] Urea nitrogen [Mass/Vol] 14 mg/dL Normal 4-19 [facility] Comment on above: Performed By: #### L 501.5200, L100.0100, L500.4050 ####[facility] [address] [place], [address] Magnesiumon 12-25-2024 Magnesium [Mass/Vol] 2.3 mg/dL High 1.5-2.2 [facility] Comment on above: Performed By: #### L 501.5200, L100.0100, L500.4050 ####[facility] [address] [place], [address] Magnesium measurement (mass/ volume)Ordered By: Sania Peña on 12-25-2024 Magnesium (Unsp spec) [Mass/Vol] 2.3 mg/dL High 1.5-2.2 [facility] Phosphoruson 12-25-2024 Phosphate [Mass/Vol] 2.0 mg/dL Low 2.7-4.5 [facility] Comment on above: Performed By: #### L 501.2300 ####[facility] [address] [place], [address] CBC W/Diff, Automatedon 07-0 Absolute Lymph 0.72 X10 3/uL Low 0.83-4.51 [facility] Comment on above: Performed By: #### L 100.0100, L500.4050 ####[facility] [address] [place], [address] Absolute Neut 7.0 X10 3/uL Normal 2.0-7.7 [facility] Comment on above: Performed By: #### L 100.0100, L500.4050 ####[facility] [address] [place], [address] Basophils/100 WBC (Bld) 0.5 % Normal 0-1 [facility] Comment on above: Performed By: #### L 100.0100, L500.4050 ####[facility] [address] [place], [address] Eosinophils/100 WBC (Bld) 0.4 % Normal 0-5 [facility] Comment on above: Performed By: #### L 100.0100, L500.4050 ####[facility] [address] [place], [address] Erythrocyte distribution width (RBC) [Ratio] 14.6 % Normal 11.6-14.6 [facility] Comment on above: Performed By: #### L 100.0100, L500.4050 ####[facility] [address] [place], [address] Hematocrit (Bld) [Volume fraction] 37.0 % Low 40-54 [facility] Comment on above: Performed By: #### L 100.0100, L500.4050 ####[facility] [address] [place], [address] Hemoglobin (Bld) [Mass/Vol] 11.5 g/dL Low 13.0-16.5 [facility] Comment on above: Performed By: #### L 100.0100, L500.4050 ####[facility] [address] [place], [address] IG% 0.500 Normal 0.0-0.9 [facility] Comment on above: Result Comment: IG% - Immature Granulocytes (promyelocytes, myelocytes andmetamyelocytes) > 1% indicates that a LEFT SHIFT is Present. Performed By: #### L 100.0100, L500.4050 ####[facility] [address] [place], [address] Lymphocytes/100 WBC (Bld) 8.5 % Low 19-41 [facility] Comment on above: Performed By: #### L 100.0100, L500.4050 ####[facility] [address] [place], [address] MCH (RBC) [Entitic mass] 27.7 pg Normal 27.0-32.0 [facility] Comment on above: Performed By: #### L 100.0100, L500.4050 ####[facility] [address] [place], [address] MCHC (RBC) [Mass/Vol] 31.1 g/dL Low 32-36 [facility] Comment on above: Performed By: #### L 100.0100, L500.4050 ####[facility] [address] [place], [address] MCV (RBC) [Entitic vol] 89.2 fL Normal 80-94 [facility] Comment on above: Performed By: #### L 100.0100, L500.4050 ####[facility] [address] [place], [address] Monocytes/100 WBC (Bld) 7.7 % Normal 0-10 [facility] Comment on above: Performed By: #### L 100.0100, L500.4050 ####[facility] [address] [place], [address] Neutrophils/100 WBC (Bld) 82.4 % High 47-70 [facility] Comment on above: Performed By: #### L 100.0100, L500.4050 ####[facility] [address] [place], [address] Nucleated RBC (Bld) [#/Vol] 0 10*3/uL Normal 0-5 [facility] Comment on above: Performed By: #### L 100.0100, L500.4050 ####[facility] [address] [place], [address] Platelet mean volume (Bld) [Entitic vol] 9.7 fL Normal 6.2-12.0 [facility] Comment on above: Performed By: #### L 100.0100, L500.4050 ####[facility] [address] [place], [address] Platelets (Bld) [#/Vol] 380 10*3/uL Normal 150-450 [facility] Comment on above: Performed By: #### L 100.0100, L500.4050 ####[facility] [address] [place], [address] RBC (Bld) [#/Vol] 4.15 10*6/uL Low 4.6-6.2 [facility] Comment on above: Performed By: #### L 100.0100, L500.4050 ####[facility] [address] [place], [address] RDW SD 46.6 fl High 35.1-43.9 [facility] Comment on above: Performed By: #### L 100.0100, L500.4050 ####[facility] [id number] [place], [address] WBC (Bld) [#/Vol] 8.5 10*3/uL Normal 4.4-11.0 [facility] Comment on above: Performed By: #### L 100.0100, L500.4050 ####[facility] [address] [place], [address] Comprehensive Metabolic Prof [facility] 12-24-2024 Albumin [Mass/Vol] 3.8 g/dL Normal 3.4-4.8 [facility] Comment on above: Performed By: #### L 100.0100, L500.4050 ####[place] [facility] [address] [place], [address] Albumin/Globulin [Mass ratio] 1.8 {ratio} Normal 0.9-2.4 [facility] Comment on above: Performed By: #### L 100.0100, L500.4050 ####[facility] [id number] [place], [address] ALK PHOS 64 U/L Normal 40-129 [facility] Comment on above: Performed By: #### L 100.0100, L500.4050 ####[facility] [address] [place], [address] ALT [Catalytic activity/Vol] 28 U/L Normal <=46 [facility] Comment on above: Performed By: #### L 100.0100, L500.4050 ####[facility] [address] [place], [address] AST [Catalytic activity/Vol] 23 U/L Normal <=37 [facility] Comment on above: Performed By: #### L 100.0100, L500.4050 ####[facility] [address] [place], [address] Bilirubin [Mass/Vol] 0.25 mg/dL Normal 0.00-1.30 [facility] Comment on above: Performed By: #### L 100.0100, L500.4050 ####[facility] [address] [place], [address] BUN/CRE 16.9 RATIO Normal 10-20 [facility] Comment on above: Performed By: #### L 100.0100, L500.4050 ####[facility] [address] [place], [address] Calcium [Mass/Vol] 8.4 mg/dL Normal 7.6-11.0 [facility] - [place] Comment on above: Performed By: #### L 100.0100, L500.4050 ####[facility] [address] [place], [address] Chloride [Moles/Vol] 106 mmol/L Normal 98-108 [facility] Comment on above: Performed By: #### L 100.0100, L500.4050 ####[facility] [address] [place], [address] CO2 [Moles/Vol] 23.1 mmol/L Normal 21.0-32.0 [facility] Comment on above: Performed By: #### L 100.0100, L500.4050 ####[facility] [address] [place], [address] Creatinine [Mass/Vol] 0.98 mg/dL Normal 0.70-1.20 [facility] Comment on above: Performed By: #### L 100.0100, L500.4050 ####[facility] [address] [place], [address] ECRCL 63.01 ml/min Normal 50-250 [facility] Comment on above: Performed By: #### L 100.0100, L500.4050 ####[facility] [address] [place], [address] GAP 11 Normal 5-15 [facility] Comment on above: Performed By: #### L 100.0100, L500.4050 ####[facility] [address] [place], [address] GFR/1.73 sq M.predicted among non-blacks MDRD (S/P/Bld) [Vol rate/Area] 81 mL/min/{1.73_m2} Normal >60 [facility] Comment on above: Result Comment: mL/m in/1.73m2 CKD-EPI Creatinine Equation (2020) Performed By: #### L 100.0100, L500.4050 ####[facility] [address] [place], [address] Globulin (S) [Mass/Vol] 2.2 g/dL Normal 2.2-4.2 [facility] Comment on above: Performed By: #### L 100.0100, L500.4050 ####[facility] [address] [place], [address] Glucose [Mass/Vol] 92 mg/dL Normal 70-99 [facility] Comment on above: Performed By: #### L 100.0100, L500.4050 ####[facility] [address] [place], [address] Potassium [Moles/Vol] 3.9 mmol/L Normal 3.3-5.1 [facility] Comment on above: Performed By: #### L 100.0100, L500.4050 ####[facility] [address] [place], [address] Sodium [Moles/Vol] 140 mmol/L Normal 133-145 [facility] Comment on above: Performed By: #### L 100.0100, L500.4050 ####[facility] [address] [place], [address] T PROT 6.0 g/dL Normal 5.9-8.4 [facility] Comment on above: Performed By: #### L 100.0100, L500.4050 ####[facility] [address] [place], [address] Urea nitrogen [Mass/Vol] 17 mg/dL Normal 4-19 [facility] Comment on above: Performed By: #### L 100.0100, L500.4050 ####[facility] [address] [place], [address] Basic Metabolic Profile (BMP )on 12-23-2024 BUN/CRE 16.4 RATIO Normal 10-20 [facility] Comment on above: Performed By: #### L 500.2500, L100.0500 ####[facility] [address] [place], [address] Calcium [Mass/Vol] 8.4 mg/dL Normal 7.6-11.0 [facility] Comment on above: Performed By: #### L 500.2500, L100.0500 ####[facility] [address] [place], [address] Chloride [Moles/Vol] 104 mmol/L Normal 98-108 [facility] Comment on above: Performed By: #### L 500.2500, L100.0500 ####[facility] [address] [place], [address] CO2 [Moles/Vol] 24.1 mmol/L Normal 21.0-32.0 [facility] Comment on above: Performed By: #### L 500.2500, L100.0500 ####[facility] [address] [place], [address] Creatinine [Mass/Vol] 1.02 mg/dL Normal 0.70-1.20 [facility] Comment on above: Performed By: #### L 500.2500, L100.0500 ####[facility] [address] [place], [address] ECRCL 60.54 ml/min Normal 50-250 [facility] Comment on above: Performed By: #### L 500.2500, L100.0500 ####[facility] [address] [place], [address] GAP 11 Normal 5-15 [facility] Comment on above: Performed By: #### L 500.2500, L100.0500 ####[facility] [address] [place], [address] GFR/1.73 sq M.predicted among non-blacks MDRD (S/P/Bld) [Vol rate/Area] 77 mL/min/{1.73_m2} Normal >60 [facility] Comment on above: Result Comment: mL/m in/1.73m2 CKD-EPI Creatinine Equation (2020) Performed By: #### L 500.2500, L100.0500 ####[facility] [address] [place], [address] Glucose [Mass/Vol] 85 mg/dL Normal 70-99 [facility] Comment on above: Performed By: #### L 500.2500, L100.0500 ####[facility] [address] [place], [address] Potassium [Moles/Vol] 3.8 mmol/L Normal 3.3-5.1 [facility] Comment on above: Performed By: #### L 500.2500, L100.0500 ####[facility] [address] [place], [address] Sodium [Moles/Vol] 139 mmol/L Normal 133-145 [facility] Comment on above: Performed By: #### L 500.2500, L100.0500 ####[facility] [address] [place], [address] Urea nitrogen [Mass/Vol] 17 mg/dL Normal 4-19 [facility] Comment on above: Performed By: #### L 500.2500, L100.0500 ####[facility] [address] [place], [address] CBC-Complete Blood Cnt No Di ffon 12-23-2024 Erythrocyte distribution width (RBC) [Ratio] 14.1 % Normal 11.6-14.6 [facility] Comment on above: Performed By: #### L 500.2500, L100.0500 ####[facility] [address] [place], [address] Hematocrit (Bld) [Volume fraction] 36.3 % Low 40-54 [facility] Comment on above: Performed By: #### L 500.2500, L100.0500 ####[facility] [address] [place], [address] Hemoglobin (Bld) [Mass/Vol] 11.2 g/dL Low 13.0-16.5 [facility] Comment on above: Performed By: #### L 500.2500, L100.0500 ####[facility] [address] [place], [address] MCH (RBC) [Entitic mass] 27.7 pg Normal 27.0-32.0 [facility] Comment on above: Performed By: #### L 500.2500, L100.0500 ####[facility] [address] [place], [address] MCHC (RBC) [Mass/Vol] 30.9 g/dL Low 32-36 [facility] Comment on above: Performed By: #### L 500.2500, L100.0500 ####[facility] [address] [place], [address] MCV (RBC) [Entitic vol] 89.9 fL Normal 80-94 [facility] Comment on above: Performed By: #### L 500.2500, L100.0500 ####[facility] [address] [place], [address] Platelet mean volume (Bld) [Entitic vol] 10.0 fL Normal 6.2-12.0 [facility] Comment on above: Performed By: #### L 500.2500, L100.0500 ####[facility] [address] [place], [address] Platelets (Bld) [#/Vol] 376 10*3/uL Normal 150-450 [facility] Comment on above: Performed By: #### L 500.2500, L100.0500 ####[facility] [address] [place], [address] RBC (Bld) [#/Vol] 4.04 10*6/uL Low 4.6-6.2 [facility] Comment on above: Performed By: #### L 500.2500, L100.0500 ####[facility] [address] [place], [address] RDW SD 46.0 fl High 35.1-43.9 [facility] Comment on above: Performed By: #### L 500.2500, L100.0500 ####[facility] [address] [place], [address] WBC (Bld) [#/Vol] 7.5 10*3/uL Normal 4.4-11.0 [facility] Comment on above: Performed By: #### L 500.2500, L100.0500 ####[facility] [address] [place], [address] Duplex ultrasound of carotid artery reportOrdered By: Raul Jensen on 12-23-2024 Study report [facility] Work Phone: EGD Reporton 12-23-2024 EGD Report Normal [facility] MR/POSTOP.ANEon 12-23-2024 MR/POSTOP.ANE Normal [facility] MR/[id number] 12-23-2024 MR/POSTOPAN2 Normal [facility] Basic Metabolic Profile (BMP )on 12-22-2024 BUN/CRE 15.7 RATIO Normal 10-20 [facility] Comment on above: Performed By: #### L 500.2500, L100.0500 ####[facility] [address] [place], [address] Calcium [Mass/Vol] 8.8 mg/dL Normal 7.6-11.0 [facility] Comment on above: Performed By: #### L 500.2500, L100.0500 ####[facility] [address] [place], [address] Chloride [Moles/Vol] 103 mmol/L Normal 98-108 [facility] Comment on above: Performed By: #### L 500.2500, L100.0500 ####[facility] [address] [place], [address] CO2 [Moles/Vol] 24.6 mmol/L Normal 21.0-32.0 [facility] Comment on above: Performed By: #### L 500.2500, L100.0500 ####[facility] [address] [place], [address] Creatinine [Mass/Vol] 1.03 mg/dL Normal 0.70-1.20 [facility] Comment on above: Performed By: #### L 500.2500, L100.0500 ####[facility] [address] [place], [address] ECRCL 59.95 ml/min Normal 50-250 [facility] Comment on above: Performed By: #### L 500.2500, L100.0500 ####[facility] [address] [place], [address] GAP 11 Normal 5-15 [facility] Comment on above: Performed By: #### L 500.2500, L100.0500 ####[facility] [address] [place], [address] GFR/1.73 sq M.predicted among non-blacks MDRD (S/P/Bld) [Vol rate/Area] 76 mL/min/{1.73_m2} Normal >60 [facility] Comment on above: Result Comment: mL/m in/1.73m2 CKD-EPI Creatinine Equation (2020) Performed By: #### L 500.2500, L100.0500 ####[facility] [address] [place], [address] Glucose [Mass/Vol] 84 mg/dL Normal 70-99 [facility] Comment on above: Performed By: #### L 500.2500, L100.0500 ####[facility] [address] [place], [address] Potassium [Moles/Vol] 3.6 mmol/L Normal 3.3-5.1 [facility] Comment on above: Performed By: #### L 500.2500, L100.0500 ####[facility] [address] [place], [address] Sodium [Moles/Vol] 139 mmol/L Normal 133-145 [facility] Comment on above: Performed By: #### L 500.2500, L100.0500 ####[facility] [address] [place], [address] Urea nitrogen [Mass/Vol] 16 mg/dL Normal 4-19 [facility] Comment on above: Performed By: #### L 500.2500, L100.0500 ####[facility] [address] [place], [address] CBC-Complete Blood Cnt No Di ffon 12-22-2024 Erythrocyte distribution width (RBC) [Ratio] 13.8 % Normal 11.6-14.6 [facility] Comment on above: Performed By: #### L 500.2500, L100.0500 ####[facility] [address] [place], [address] Hematocrit (Bld) [Volume fraction] 37.7 % Low 40-54 [facility] Comment on above: Performed By: #### L 500.2500, L100.0500 ####[facility] [address] [place], [address] Hemoglobin (Bld) [Mass/Vol] 11.7 g/dL Low 13.0-16.5 [facility] Comment on above: Performed By: #### L 500.2500, L100.0500 ####[facility] [address] [place], [address] MCH (RBC) [Entitic mass] 27.7 pg Normal 27.0-32.0 [facility] Comment on above: Performed By: #### L 500.2500, L100.0500 ####[facility] [address] [place], [address] MCHC (RBC) [Mass/Vol] 31.0 g/dL Low 32-36 [facility] Comment on above: Performed By: #### L 500.2500, L100.0500 ####[facility] [address] [place], [address] MCV (RBC) [Entitic vol] 89.1 fL Normal 80-94 [facility] Comment on above: Performed By: #### L 500.2500, L100.0500 ####[facility] [address] [place], [address] Platelet mean volume (Bld) [Entitic vol] 10.1 fL Normal 6.2-12.0 [facility] Comment on above: Performed By: #### L 500.2500, L100.0500 ####[facility] [address] [place], [address] Platelets (Bld) [#/Vol] 392 10*3/uL Normal 150-450 [facility] Comment on above: Performed By: #### L 500.2500, L100.0500 ####[facility] [address] [place], [address] RBC (Bld) [#/Vol] 4.23 10*6/uL Low 4.6-6.2 [facility] Comment on above: Performed By: #### L 500.2500, L100.0500 ####[facility] [address] [place], [address] RDW SD 45.0 fl High 35.1-43.9 [facility] Comment on above: Performed By: #### L 500.2500, L100.0500 ####[facility] [address] [place], [address] WBC (Bld) [#/Vol] 7.5 10*3/uL Normal 4.4-11.0 [facility] Comment on above: Performed By: #### L 500.2500, L100.0500 ####[facility] [address] [place], [address] Basic Metabolic Profile (BMP )on 12-21-2024 BUN/CRE 16.2 RATIO Normal 10-20 [facility] Comment on above: Performed By: #### L 100.0100, L500.2500 ####[facility] [address] [place], [address] Calcium [Mass/Vol] 8.3 mg/dL Normal 7.6-11.0 [facility] Comment on above: Performed By: #### L 100.0100, L500.2500 ####[facility] [address] [place], [address] Chloride [Moles/Vol] 105 mmol/L Normal 98-108 [facility] Comment on above: Performed By: #### L 100.0100, L500.2500 ####[facility] [address] [place], [address] CO2 [Moles/Vol] 25.0 mmol/L Normal 21.0-32.0 [facility] Comment on above: Performed By: #### L 100.0100, L500.2500 ####[facility] [address] [place], [address] Creatinine [Mass/Vol] 0.99 mg/dL Normal 0.70-1.20 [facility] Comment on above: Performed By: #### L 100.0100, L500.2500 ####[facility] [address] [place], [address] ECRCL 62.37 ml/min Normal 50-250 [facility] Comment on above: Performed By: #### L 100.0100, L500.2500 ####[facility] [address] [place], [address] GAP 9 Normal 5-15 [facility] Comment on above: Performed By: #### L 100.0100, L500.2500 ####[facility] [address] [place], [address] GFR/1.73 sq M.predicted among non-blacks MDRD (S/P/Bld) [Vol rate/Area] 80 mL/min/{1.73_m2} Normal >60 [facility] Comment on above: Result Comment: mL/m in/1.73m2 CKD-EPI Creatinine Equation (2020) Performed By: #### L 100.0100, L500.2500 ####[facility] [address] [place], [address] Glucose [Mass/Vol] 95 mg/dL Normal 70-99 [facility] Comment on above: Performed By: #### L 100.0100, L500.2500 ####[facility] [address] [place], [address] Potassium [Moles/Vol] 3.5 mmol/L Normal 3.3-5.1 [facility] Comment on above: Performed By: #### L 100.0100, L500.2500 ####[facility] [address] [place], [address] Sodium [Moles/Vol] 139 mmol/L Normal 133-145 [facility] Comment on above: Performed By: #### L 100.0100, L500.2500 ####[facility] [address] [place], [address] Urea nitrogen [Mass/Vol] 16 mg/dL Normal 4-19 [facility] Comment on above: Performed By: #### L 100.0100, L500.2500 ####[facility] [address] [place], [address] CBC W/Diff, Automatedon 07-0 5-2025 Absolute Lymph 0.95 X10 3/uL Normal 0.83-4.51 [facility] Comment on above: Performed By: #### L 100.0100, L500.2500 ####[facility] [address] [place], [address] Absolute Neut 5.0 X10 3/uL Normal 2.0-7.7 [facility] Comment on above: Performed By: #### L 100.0100, L500.2500 ####[facility] [address] [place], [address] Basophils/100 WBC (Bld) 0.6 % Normal 0-1 [facility] Comment on above: Performed By: #### L 100.0100, L500.2500 ####[facility] [address] [place], [address] Eosinophils/100 WBC (Bld) 1.2 % Normal 0-5 [facility] Comment on above: Performed By: #### L 100.0100, L500.2500 ####[facility] [address] [place], [address] Erythrocyte distribution width (RBC) [Ratio] 13.7 % Normal 11.6-14.6 [facility] Comment on above: Performed By: #### L 100.0100, L500.2500 ####[facility] [address] [place], [address] Hematocrit (Bld) [Volume fraction] 33.8 % Low 40-54 [facility] Comment on above: Performed By: #### L 100.0100, L500.2500 ####[facility] [address] [place], [address] Hemoglobin (Bld) [Mass/Vol] 10.4 g/dL Low 13.0-16.5 [facility] Comment on above: Performed By: #### L 100.0100, L500.2500 ####[facility] [address] [place], [address] IG% 0.400 Normal 0.0-0.9 [facility] Comment on above: Result Comment: IG% - Immature Granulocytes (promyelocytes, myelocytes andmetamyelocytes) > 1% indicates that a LEFT SHIFT is Present. Performed By: #### L 100.0100, L500.2500 ####[facility] [address] [place], [address] Lymphocytes/100 WBC (Bld) 14.2 % Low 19-41 [facility] Comment on above: Performed By: #### L 100.0100, L500.2500 ####[facility] [address] [place], [address] MCH (RBC) [Entitic mass] 27.6 pg Normal 27.0-32.0 [facility] Comment on above: Performed By: #### L 100.0100, L500.2500 ####[facility] [address] [place], [address] MCHC (RBC) [Mass/Vol] 30.8 g/dL Low 32-36 [facility] Comment on above: Performed By: #### L 100.0100, L500.2500 ####[facility] [address] [place], [address] MCV (RBC) [Entitic vol] 89.7 fL Normal 80-94 [facility] Comment on above: Performed By: #### L 100.0100, L500.2500 ####[facility] [address] [place], [address] Monocytes/100 WBC (Bld) 8.5 % Normal 0-10 [facility] Comment on above: Performed By: #### L 100.0100, L500.2500 ####[facility] [address] [place], [address] Neutrophils/100 WBC (Bld) 75.1 % High 47-70 [facility] Comment on above: Performed By: #### L 100.0100, L500.2500 ####[facility] [address] [place], [address] Nucleated RBC (Bld) [#/Vol] 0 10*3/uL Normal 0-5 [facility] Comment on above: Performed By: #### L 100.0100, L500.2500 ####[facility] [address] [place], [address] Platelet mean volume (Bld) [Entitic vol] 9.7 fL Normal 6.2-12.0 [facility] Comment on above: Performed By: #### L 100.0100, L500.2500 ####[facility] [address] [place], [address] Platelets (Bld) [#/Vol] 326 10*3/uL Normal 150-450 [facility] Comment on above: Performed By: #### L 100.0100, L500.2500 ####[facility] [address] [place], [address] RBC (Bld) [#/Vol] 3.77 10*6/uL Low 4.6-6.2 [facility] Comment on above: Performed By: #### L 100.0100, L500.2500 ####[facility] [address] [place], [address] RDW SD 44.7 fl High 35.1-43.9 [facility] Comment on above: Performed By: #### L 100.0100, L500.2500 ####[facility] [address] [place], [address] WBC (Bld) [#/Vol] 6.7 10*3/uL Normal 4.4-11.0 [facility] Comment on above: Performed By: #### L 100.0100, L500.2500 ####[facility] [address] [place], [address] CBC W/Diff, Automatedon 07-0 4-202 Absolute Lymph 0.69 X10 3/uL Low 0.83-4.51 [facility] Comment on above: Performed By: #### L 100.0100 ####[facility] [address] [place], [address] Absolute Neut 5.5 X10 3/uL Normal 2.0-7.7 [facility] Comment on above: Performed By: #### L 100.0100 ####[facility] [address] [place], [address] Basophils/100 WBC (Bld) 0.9 % Normal 0-1 [facility] Comment on above: Performed By: #### L 100.0100 ####[facility] [address] [place], [address] Eosinophils/100 WBC (Bld) 1.2 % Normal 0-5 [facility] Comment on above: Performed By: #### L 100.0100 ####[facility] [address] [place], [address] Erythrocyte distribution width (RBC) [Ratio] 13.7 % Normal 11.6-14.6 [facility] Comment on above: Performed By: #### L 100.0100 ####[facility] [address] [place], [address] Hematocrit (Bld) [Volume fraction] 35.7 % Low 40-54 [facility] Comment on above: Performed By: #### L 100.0100 ####[facility] [address] [place], [address] Hemoglobin (Bld) [Mass/Vol] 10.9 g/dL Low 13.0-16.5 [facility] Comment on above: Performed By: #### L 100.0100 ####[facility] [address] [place], [address] IG% 0.400 Normal 0.0-0.9 [facility] Comment on above: Result Comment: IG% - Immature Granulocytes (promyelocytes, myelocytes andmetamyelocytes) > 1% indicates that a LEFT SHIFT is Present. Performed By: #### L 100.0100 ####[facility] [address] [place], [address] Lymphocytes/100 WBC (Bld) 9.9 % Low 19-41 [facility] Comment on above: Performed By: #### L 100.0100 ####[facility] [address] [place], [address] MCH (RBC) [Entitic mass] 27.3 pg Normal 27.0-32.0 [facility] Comment on above: Performed By: #### L 100.0100 ####[facility] [address] [place], [address] MCHC (RBC) [Mass/Vol] 30.5 g/dL Low 32-36 [facility] Comment on above: Performed By: #### L 100.0100 ####[facility] [address] [place], [address] MCV (RBC) [Entitic vol] 89.5 fL Normal 80-94 [facility] Comment on above: Performed By: #### L 100.0100 ####[facility] [address] [place], [address] Monocytes/100 WBC (Bld) 8.5 % Normal 0-10 [facility] Comment on above: Performed By: #### L 100.0100 ####[facility] [address] [place], [address] Neutrophils/100 WBC (Bld) 79.1 % High 47-70 [facility] Comment on above: Performed By: #### L 100.0100 ####[facility] [address] [place], [address] Nucleated RBC (Bld) [#/Vol] 0 10*3/uL Normal 0-5 [facility] Comment on above: Performed By: #### L 100.0100 ####[facility] [address] [place], [address] Platelet mean volume (Bld) [Entitic vol] 10.0 fL Normal 6.2-12.0 [facility] Comment on above: Performed By: #### L 100.0100 ####[facility] [address] [place], [address] Platelets (Bld) [#/Vol] 355 10*3/uL Normal 150-450 [facility] Comment on above: Performed By: #### L 100.0100 ####[facility] [address] [place], [address] RBC (Bld) [#/Vol] 3.99 10*6/uL Low 4.6-6.2 [facility] Comment on above: Performed By: #### L 100.0100 ####[facility] [address] [place], [address] RDW SD 44.4 fl High 35.1-43.9 [facility] Comment on above: Performed By: #### L 100.0100 ####[facility] [address] [place], [address] WBC (Bld) [#/Vol] 6.9 10*3/uL Normal 4.4-11.0 [facility] Comment on above: Performed By: #### L 100.0100 ####[facility] [address] [place], [address] Carotid Duplex Ultrasoundon 12-20-2024 Carotid Duplex Ultrasound Normal [facility] Vitamin B12on 12-20-2024 Cobalamin (Vitamin B12) [Mass/Vol] 774 pg/mL Normal 180-914 [facility] Comment on above: Performed By: #### L 503.0106 ####[facility] [address] [place], [address] Vitamin B12 ser/plasOrdered By: Lisha Talamantes on 12-20-2024 Cobalamin (Vitamin B12) [Mass/Vol] 774 pg/mL 180-914 [facility] CBC W/Diff, Automatedon 07- Absolute Lymph 0.67 X10 3/uL Low 0.83-4.51 [facility] Comment on above: Performed By: #### L 100.0100, L500.4050 ####[facility] [address] [place], [address] Absolute Neut 6.0 X10 3/uL Normal 2.0-7.7 [facility] Comment on above: Performed By: #### L 100.0100, L500.4050 ####[facility] [address] [place], [address] Basophils/100 WBC (Bld) 0.8 % Normal 0-1 [facility] Comment on above: Performed By: #### L 100.0100, L500.4050 ####[facility] [address] [place], [address] Eosinophils/100 WBC (Bld) 1.9 % Normal 0-5 [facility] Comment on above: Performed By: #### L 100.0100, L500.4050 ####[facility] [address] [place], [address] Erythrocyte distribution width (RBC) [Ratio] 13.6 % Normal 11.6-14.6 [facility] Comment on above: Performed By: #### L 100.0100, L500.4050 ####[facility] [address] [place], [address] Hematocrit (Bld) [Volume fraction] 39.1 % Low 40-54 [facility] Comment on above: Performed By: #### L 100.0100, L500.4050 ####[facility] [address] [place], [address] Hemoglobin (Bld) [Mass/Vol] 11.9 g/dL Low 13.0-16.5 [facility] Comment on above: Performed By: #### L 100.0100, L500.4050 ####[facility] [address] [place], [address] IG% 0.400 Normal 0.0-0.9 [facility] Comment on above: Result Comment: IG% - Immature Granulocytes (promyelocytes, myelocytes andmetamyelocytes) > 1% indicates that a LEFT SHIFT is Present. Performed By: #### L 100.0100, L500.4050 ####[facility] [address] [place], [address] Lymphocytes/100 WBC (Bld) 9.0 % Low 19-41 [facility] Comment on above: Performed By: #### L 100.0100, L500.4050 ####[facility] [address] [place], [address] MCH (RBC) [Entitic mass] 27.5 pg Normal 27.0-32.0 [facility] Comment on above: Performed By: #### L 100.0100, L500.4050 ####[facility] [address] [place], [address] MCHC (RBC) [Mass/Vol] 30.4 g/dL Low 32-36 [facility] Comment on above: Performed By: #### L 100.0100, L500.4050 ####[facility] [address] [place], [address] MCV (RBC) [Entitic vol] 90.5 fL Normal 80-94 [facility] Comment on above: Performed By: #### L 100.0100, L500.4050 ####[facility] [address] [place], [address] Monocytes/100 WBC (Bld) 6.6 % Normal 0-10 [facility] Comment on above: Performed By: #### L 100.0100, L500.4050 ####[facility] [address] [place], [address] Neutrophils/100 WBC (Bld) 81.3 % High 47-70 [facility] Comment on above: Performed By: #### L 100.0100, L500.4050 ####[facility] [address] [place], [address] Nucleated RBC (Bld) [#/Vol] 0 10*3/uL Normal 0-5 [facility] Comment on above: Performed By: #### L 100.0100, L500.4050 ####[facility] [address] [place], [address] Platelet mean volume (Bld) [Entitic vol] 9.6 fL Normal 6.2-12.0 [facility] Comment on above: Performed By: #### L 100.0100, L500.4050 ####[facility] [address] [place], [address] Platelets (Bld) [#/Vol] 375 10*3/uL Normal 150-450 [facility] Comment on above: Performed By: #### L 100.0100, L500.4050 ####[facility] [address] [place], [address] RBC (Bld) [#/Vol] 4.32 10*6/uL Low 4.6-6.2 [facility] Comment on above: Performed By: #### L 100.0100, L500.4050 ####[facility] [address] [place], [address] RDW SD 44.8 fl High 35.1-43.9 [facility] Comment on above: Performed By: #### L 100.0100, L500.4050 ####[facility] [address] [place], [address] WBC (Bld) [#/Vol] 7.4 10*3/uL Normal 4.4-11.0 [facility] Comment on above: Performed By: #### L 100.0100, L500.4050 ####[facility] [address] [place], [address] CDIFF (PCR)on 12-19-2024 CDIFF Normal [facility] Comment on above: Performed By: #### M 100.6796 ####[facility] [address] [place], [address] Comprehensive Metabolic Prof ilon 12-19-2024 Albumin [Mass/Vol] 4.3 g/dL Normal 3.4-4.8 [facility] Comment on above: Performed By: #### L 100.0100, L500.4050 ####[facility] [address] [place], [address] Albumin/Globulin [Mass ratio] 1.5 {ratio} Normal 0.9-2.4 [facility] Comment on above: Performed By: #### L 100.0100, L500.4050 ####[facility] [address] [place], [address] ALK PHOS 69 U/L Normal 40-129 [facility] Comment on above: Performed By: #### L 100.0100, L500.4050 ####[facility] [address] [place], [address] ALT [Catalytic activity/Vol] 25 U/L Normal <=46 [facility] Comment on above: Performed By: #### L 100.0100, L500.4050 ####[facility] [address] [place], [address] AST [Catalytic activity/Vol] 23 U/L Normal <=37 [facility] Comment on above: Performed By: #### L 100.0100, L500.4050 ####[facility] [address] [place], [address] Bilirubin [Mass/Vol] 0.24 mg/dL Normal 0.00-1.30 [facility] Comment on above: Performed By: #### L 100.0100, L500.4050 ####[facility] [address] [place], [address] BUN/CRE 17.6 RATIO Normal 10-20 [facility] Comment on above: Performed By: #### L 100.0100, L500.4050 ####[facility] [address] [place], [address] Calcium [Mass/Vol] 9.5 mg/dL Normal 7.6-11.0 [facility] Comment on above: Performed By: #### L 100.0100, L500.4050 ####[facility] [address] [place], [address] Chloride [Moles/Vol] 101 mmol/L Normal 98-108 [facility] Comment on above: Performed By: #### L 100.0100, L500.4050 ####[facility] [address] [place], [address] CO2 [Moles/Vol] 27.6 mmol/L Normal 21.0-32.0 [facility] Comment on above: Performed By: #### L 100.0100, L500.4050 ####[facility] [address] [place], [address] Creatinine [Mass/Vol] 1.06 mg/dL Normal 0.70-1.20 [facility] Comment on above: Performed By: #### L 100.0100, L500.4050 ####[facility] [address] [place], [address] ECRCL 58.25 ml/min Normal 50-250 [facility] Comment on above: Performed By: #### L 100.0100, L500.4050 ####[facility] [address] [place], [address] GAP 12 Normal 5-15 [facility] Comment on above: Performed By: #### L 100.0100, L500.4050 ####[facility] [address] [place], [address] GFR/1.73 sq M.predicted among non-blacks MDRD (S/P/Bld) [Vol rate/Area] 73 mL/min/{1.73_m2} Normal >60 [facility] Comment on above: Result Comment: mL/m in/1.73m2 CKD-EPI Creatinine Equation (2020) Performed By: #### L 100.0100, L500.4050 ####[facility] [address] [place], [address] Globulin (S) [Mass/Vol] 2.8 g/dL Normal 2.2-4.2 [facility] Comment on above: Performed By: #### L 100.0100, L500.4050 ####[facility] [address] [place], [address] Glucose [Mass/Vol] 109 mg/dL High 70-99 [facility] Comment on above: Performed By: #### L 100.0100, L500.4050 ####[facility] [address] [place], [address] Potassium [Moles/Vol] 3.6 mmol/L Normal 3.3-5.1 [facility] Comment on above: Performed By: #### L 100.0100, L500.4050 ####[facility] [address] [place], [address] Sodium [Moles/Vol] 141 mmol/L Normal 133-145 [facility] Comment on above: Performed By: #### L 100.0100, L500.4050 ####[facility] [address] [place], [address] T PROT 7.1 g/dL Normal 5.9-8.4 [facility] Comment on above: Performed By: #### L 100.0100, L500.4050 ####[facility] [address] [place], [address] Urea nitrogen [Mass/Vol] 19 mg/dL Normal 4-19 [facility] Comment on above: Performed By: #### L 100.0100, L500.4050 ####[facility] [address] [place], [address] ENTERIC PATHOGEN PANEL STOOL on 12-19-2024 EP PANEL Normal [facility] Comment on above: Performed By: #### M 100.637 ####[facility] [address] [place], [address] Magnetic resonance imaging r eportOrdered By: Dorian Parker on 12-19-2024 Study report [facility] Basic Metabolic Profile (BMP )on 12-18-2024 BUN/CRE 20.6 RATIO High 10-20 [facility] Comment on above: Performed By: #### L 500.2500, L100.0500 ####[facility] [address] [place], [address] Calcium [Mass/Vol] 9.7 mg/dL Normal 7.6-11.0 [facility] Comment on above: Performed By: #### L 500.2500, L100.0500 ####[facility] [address] [place], [address] Chloride [Moles/Vol] 103 mmol/L Normal 98-108 [facility] Comment on above: Performed By: #### L 500.2500, L100.0500 ####[facility] [address] [place], [address] CO2 [Moles/Vol] 26.5 mmol/L Normal 21.0-32.0 [facility] Comment on above: Performed By: #### L 500.2500, L100.0500 ####[facility] [address] [place], [address] Creatinine [Mass/Vol] 1.06 mg/dL Normal 0.70-1.20 [facility] Comment on above: Performed By: #### L 500.2500, L100.0500 ####[facility] [address] [place], [address] ECRCL 58.25 ml/min Normal 50-250 [facility] Comment on above: Performed By: #### L 500.2500, L100.0500 ####[facility] [address] [place], [address] GAP 12 Normal 5-15 [facility] Comment on above: Performed By: #### L 500.2500, L100.0500 ####[facility] [address] [place], [address] GFR/1.73 sq M.predicted among non-blacks MDRD (S/P/Bld) [Vol rate/Area] 73 mL/min/{1.73_m2} Normal >60 [facility] Comment on above: Result Comment: mL/m in/1.73m2 CKD-EPI Creatinine Equation (2020) Performed By: #### L 500.2500, L100.0500 ####[facility] [address] [place], [address] Glucose [Mass/Vol] 95 mg/dL Normal 70-99 [facility] Comment on above: Performed By: #### L 500.2500, L100.0500 ####[facility] [address] [place], [address] Potassium [Moles/Vol] 4.2 mmol/L Normal 3.3-5.1 [facility] Comment on above: Result Comment: Hemo lysis present, Results??could be affected.?? Performed By: #### L 500.2500, L100.0500 ####[facility] [address] [place], [address] Sodium [Moles/Vol] 141 mmol/L Normal 133-145 [facility] Comment on above: Performed By: #### L 500.2500, L100.0500 ####[facility] [address] [place], [address] Urea nitrogen [Mass/Vol] 22 mg/dL High 4-19 [facility] Comment on above: Performed By: #### L 500.2500, L100.0500 ####[facility] [address] [place], [address] Brain without Contraston Brain without Contrast Normal [facility] CBC-Complete Blood Cnt No Di ffon 12-18-2024 Erythrocyte distribution width (RBC) [Ratio] 13.7 % Normal 11.6-14.6 [facility] Comment on above: Performed By: #### L 500.2500, L100.0500 ####[facility] [address] [place], [address] Hematocrit (Bld) [Volume fraction] 41.9 % Normal 40-54 [facility] Comment on above: Performed By: #### L 500.2500, L100.0500 ####[facility] [address] [place], [address] Hemoglobin (Bld) [Mass/Vol] 12.8 g/dL Low 13.0-16.5 [facility] Comment on above: Performed By: #### L 500.2500, L100.0500 ####[facility] [address] [place], [address] MCH (RBC) [Entitic mass] 27.7 pg Normal 27.0-32.0 [facility] Comment on above: Performed By: #### L 500.2500, L100.0500 ####[facility] [address] [place], [address] MCHC (RBC) [Mass/Vol] 30.5 g/dL Low 32-36 [facility] Comment on above: Performed By: #### L 500.2500, L100.0500 ####[facility] [address] [place], [address] MCV (RBC) [Entitic vol] 90.7 fL Normal 80-94 [facility] Comment on above: Performed By: #### L 500.2500, L100.0500 ####[facility] [address] [place], [address] Platelet mean volume (Bld) [Entitic vol] 9.9 fL Normal 6.2-12.0 [facility] Comment on above: Performed By: #### L 500.2500, L100.0500 ####[facility] [address] [place], [address] Platelets (Bld) [#/Vol] 386 10*3/uL Normal 150-450 [facility] Comment on above: Performed By: #### L 500.2500, L100.0500 ####[facility] [address] [place], [address] RBC (Bld) [#/Vol] 4.62 10*6/uL Normal 4.6-6.2 [facility] Comment on above: Performed By: #### L 500.2500, L100.0500 ####[facility] [address] [place], [address] RDW SD 45.7 fl High 35.1-43.9 [facility] Comment on above: Performed By: #### L 500.2500, L100.0500 ####[facility] [address] [place], [address] WBC (Bld) [#/Vol] 10.4 10*3/uL Normal 4.4-11.0 [facility] Comment on above: Performed By: #### L 500.2500, L100.0500 ####[facility] [address] [place], [address] Clostridium difficile detect ion by polymerase chain reactionOrdered By: Lisha Talamantes on 12-18-2024 C. difficile DNA ALEENA+probe Ql (Unsp spec) [facility] Echo, Limited Studyon 2024 Echo, Limited Study Normal [facility] Electrocardiogram reportOrde red By: Brendan Vallejo on 12-18-2024 EKG study [facility] Other Phone: [phone] Limited echocardiogram repor tOrdered By: Milton Guajardo on 12-18-2024 Study report [facility] Work Phone: MR/CON.PCM.NEon 12-18-2024 MR/CON.PCM.NE Normal [facility] 12 Lead EKGon 12-17-2024 12 Lead EKG Normal [facility] Absolute lymphocyte countOrd ered By: Seth Pritchard on 12-17-2024 Lymphocytes Auto (Unsp spec) [#/Vol] 1.03 10*3/uL 0.83-4.51 [facility] Activated partial thrombopla stin time (aPTT) in platelet poor plasma by coagulation aOrdered By: Seth Pritchard on 12-17-2024 aPTT Coag (PPP) [Time] 24.2 s 24.1-36.2 [facility] Anion gap in Serum or Plasma Ordered By: Seth Pritchard on 12-17-2024 Anion gap [Moles/Vol] 13 mmol/L 5-15 [facility] Automated blood erythrocyte countOrdered By: Seth Pritchard on 12-17-2024 RBC (Bld) [#/Vol] 4.45 10*6/uL Low 4.6-6.2 [facility] Comment on above: Performed By: #### L 501.4021, L300.4310, L100.0100, L500.2500, L300.3900 ####[facility] [address] [place], [place], [id number] Automated blood hematocrit ( percentage)Ordered By: Seth Pritchard on 12-17-2024 Hematocrit (Bld) [Volume fraction] 39.6 % Low 40-54 [facility] Comment on above: Performed By: #### L 501.4021, L300.4310, L100.0100, L500.2500, L300.3900 ####[facility] [address] [facility] [place], [place], [id number] Automated lymphocyte count a s percentage of total leukocytesOrdered By: Seth Pritchard on 12-17-2024 Lymphocytes/100 WBC Auto (Unsp spec) 12.1 % Low 19-41 [facility] BUN/creatinine ratioOrdered By: Seth Pritchard on 12-17-2024 Urea nitrogen/Creatinine [Mass ratio] 26.4 mg/mg High 10-20 [facility] Basic Metabolic Profile (BMP )on 12-17-2024 BUN/CRE 26.4 RATIO High 10-20 [facility] Comment on above: Performed By: #### L 501.4021, L300.4310, L100.0100, L500.2500, L300.3900 ####[facility] [address] [place], [address] ECRCL 52.33 ml/min Normal 50-250 [facility] Comment on above: Performed By: #### L 501.4021, L300.4310, L100.0100, L500.2500, L300.3900 ####[facility] [address] [place], [address] GAP 13 Normal 5-15 [facility] Comment on above: Performed By: #### L 501.4021, L300.4310, L100.0100, L500.2500, L300.3900 ####[facility] [address] [place], [address] Potassium [Moles/Vol] 3.6 mmol/L Normal 3.3-5.1 [facility] Comment on above: Performed By: #### L 501.4021, L300.4310, L100.0100, L500.2500, L300.3900 ####[facility] [address] [place], [address] Basophil percentageOrdered B y: Seth Pritchard on 12-17-2024 Basophils/100 WBC (Bld) 1.1 % High 0-1 [facility] Comment on above: Performed By: #### L 501.4021, L300.4310, L100.0100, L500.2500, L300.3900 ####[facility] [address] [place], [address] CBC W/Diff, Automatedon 07-0 Absolute Lymph 1.03 X10 3/uL Normal 0.83-4.51 [facility] Comment on above: Performed By: #### L 501.4021, L300.4310, L100.0100, L500.2500, L300.3900 ####[facility] [address] [place], [address] Absolute Neut 6.6 X10 3/uL Normal 2.0-7.7 [facility] Comment on above: Performed By: #### L 501.4021, L300.4310, L100.0100, L500.2500, L300.3900 ####[facility] [address] [place], [address] IG% 0.400 Normal 0.0-0.9 [facility] Comment on above: Result Comment: IG% - Immature Granulocytes (promyelocytes, myelocytes andmetamyelocytes) > 1% indicates that a LEFT SHIFT is Present. Performed By: #### L 501.4021, L300.4310, L100.0100, L500.2500, L300.3900 ####[facility] [address] [place], [address] Lymphocytes/100 WBC (Bld) 12.1 % Low 19-41 [facility] Comment on above: Performed By: #### L 501.4021, L300.4310, L100.0100, L500.2500, L300.3900 ####[facility] [address] [place], [address] MCHC (RBC) [Mass/Vol] 31.3 g/dL Low 32-36 [facility] Comment on above: Performed By: #### L 501.4021, L300.4310, L100.0100, L500.2500, L300.3900 ####[facility] [address] [place], [address] Nucleated RBC (Bld) [#/Vol] 0 10*3/uL Normal 0-5 [facility] Comment on above: Performed By: #### L 501.4021, L300.4310, L100.0100, L500.2500, L300.3900 ####[facility] [address] [place], [address] Platelet mean volume (Bld) [Entitic vol] 10.0 fL Normal 6.2-12.0 [facility] Comment on above: Performed By: #### L 501.4021, L300.4310, L100.0100, L500.2500, L300.3900 ####[facility] [address] [place], [address] RDW SD 45.6 fl High 35.1-43.9 [facility] Comment on above: Performed By: #### L 501.4021, L300.4310, L100.0100, L500.2500, L300.3900 ####[facility] [address] [place], [address] Carbon dioxide, total [Moles /volume] in Central venous bloodOrdered By: Seth Pritchard on 12-17-2024 CO2 [Moles/Vol] 25.5 mmol/L Normal 21.0-32.0 [facility] Comment on above: Performed By: #### L 501.4021, L300.4310, L100.0100, L500.2500, L300.3900 ####[facility] [address] [place], [address] Chest PA and Lateralon 12-17 Chest PA and Lateral Normal [facility] Chloride assayOrdered By: Bill Pritchard on 12-17-2024 Chloride [Moles/Vol] 104 mmol/L Normal 98-108 [facility] Comment on above: Performed By: #### L 501.4021, L300.4310, L100.0100, L500.2500, L300.3900 ####[facility] [address] [place], [address] Emergency Department Summary on 07-01-2025 Emergency Department Summary Normal [facility] Eosinophil percentageOrdered By: Seth Pritchard on 12-17-2024 Eosinophils/100 WBC (Bld) 1.1 % Normal 0-5 [facility] Comment on above: Performed By: #### L 501.4021, L300.4310, L100.0100, L500.2500, L300.3900 ####[facility] [address] [place], [place], [id number] Erythrocyte distribution wid th ratioOrdered By: Seth Pritchard on 12-17-2024 Erythrocyte distribution width (RBC) [Ratio] 14.0 % Normal 11.6-14.6 [facility] Comment on above: Performed By: #### L 501.4021, L300.4310, L100.0100, L500.2500, L300.3900 ####[facility] [address] [place], [place], [address] Erythrocyte distribution wid th standard deviationOrdered By: Seth Pritchard on 12-17-2024 Erythrocyte distribution width (RBC) [Ratio] 45.6 fl High 35.1-43.9 [facility] Glomerular filtration rate ( GFR) estimation/1.73 sq m using serum, plasma, or whole bOrdered By: Seth Pritchard on 12-17-2024 GFR/1.73 sq M.predicted among non-blacks MDRD (S/P/Bld) [Vol rate/Area] 64 mL/min/{1.73_m2} Normal >60 [facility] Comment on above: Result Comment: mL/m in/1.73m2 CKD-EPI Creatinine Equation (2020) Performed By: #### L 501.4021, L300.4310, L100.0100, L500.2500, L300.3900 ####[facility] [address] [place], [address] H AND P Exam - Hospitaliston 12-17-2024 H&P Exam - Hospitalist Normal [facility] Hemoglobin A1c percentageOrd ered By: Roman Patel on 12-17-2024 HbA1c (Bld) [Mass fraction] 5.9 % High <=5.6 [facility] Comment on above: Result Comment: Norm al < 5.7 % Prediabetic 5.7 - 6.4 % Diabetic >or= 6.5 % Please note range changes. Performed By: #### L 501.9985, L501.9520 ####[facility] [address] [place], [address] Hemoglobin measurementOrdere d By: Seth Pritchard on 12-17-2024 Hemoglobin (Bld) [Mass/Vol] 12.4 g/dL Low 13.0-16.5 [facility] Comment on above: Performed By: #### L 501.4021, L300.4310, L100.0100, L500.2500, L300.3900 ####[facility] [address] [place], [address] Immature granulocytes/100 WB C Auto (Bld)Ordered By: Seth Pritchard on 12-17-2024 Immature granulocytes/100 WBC (Bld) 0.400 % 0.0-0.9 [facility] L499.0042on 12-17-2024 Trop T High Sen 23 ng/L High <=22 [facility] Comment on above: Performed By: #### L 499.0042 ####[facility] [address] [place], [address] L499.0043on 12-17-2024 Trop T High Sen 23 ng/L High <=22 [facility] Comment on above: Performed By: #### L 499.0043 ####[facility] [address] [place], [address] L501.4021on 12-17-2024 Trop T High Sen 27 ng/L High <=22 [facility] Comment on above: Performed By: #### L 501.4021, L300.4310, L100.0100, L500.2500, L300.3900 ####[facility] [address] [place], [place], [id number] MCV (mean corpuscular volume ) determinationOrdered By: Seth Pritchard on 12-17-2024 MCV (RBC) [Entitic vol] 89.0 fL Normal 80-94 [facility] Comment on above: Performed By: #### L 501.4021, L300.4310, L100.0100, L500.2500, L300.3900 ####[facility] [address] [place], [place], [id number] Mean corpuscular hemoglobin (MCH) determinationOrdered By: Seth Pritchard on 12-17-2024 MCH (RBC) [Entitic mass] 27.9 pg Normal 27.0-32.0 [facility] Comment on above: Performed By: #### L 501.4021, L300.4310, L100.0100, L500.2500, L300.3900 ####[facility] [address] [place], [place], [id number] Monocyte percentageOrdered B y: Seth Pritchard on 12-17-2024 Monocytes/100 WBC (Bld) 7.8 % Normal 0-10 [address] [facility] Comment on above: Performed By: #### L 501.4021, L300.4310, L100.0100, L500.2500, L300.3900 ####[facility] [address] [place], [address] Neutrophil percentageOrdered By: Seth Pritchard on 12-17-2024 Neutrophils/100 WBC (Bld) 77.5 % High 47-70 [facility] Comment on above: Performed By: #### L 501.4021, L300.4310, L100.0100, L500.2500, L300.3900 ####[facility] [address] [place], [address] Partial Thromboplast Timeon 12-17-2024 aPTT Coag (Bld) [Time] 24.2 s Normal 24.1-36.2 [facility] Comment on above: Performed By: #### L 501.4021, L300.4310, L100.0100, L500.2500, L300.3900 ####[facility] [address] [place], [address] Platelet countOrdered By: Bill Pritchard on 12-17-2024 Platelets (Bld) [#/Vol] 417 10*3/uL Normal 150-450 [facility] Comment on above: Performed By: #### L 501.4021, L300.4310, L100.0100, L500.2500, L300.3900 ####[facility] [address] [place], [address] Potassium measurement (mass/ volume)Ordered By: Seth Pritchard on 12-17-2024 Potassium (Unsp spec) [Mass/Vol] 3.6 mmol/L 3.3-5.1 [facility] Prothrombin Time w/INRon INR Coag (PPP) [Relative time] 0.9 {INR} Normal [facility] Comment on above: Performed By: #### L 501.4021, L300.4310, L100.0100, L500.2500, L300.3900 ####[facility] [address] [place], [address] Prothrombin timeOrdered By: Seth Pritchard on 12-17-2024 PT Coag (PPP) [Time] 12.8 s Normal 11.7-14.9 [facility] Comment on above: Performed By: #### L 501.4021, L300.4310, L100.0100, L500.2500, L300.3900 ####[facility] [address] [place], [address] STROKE Brain/Head without Co nton 12-17-2024 STROKE Brain/Head without Cont Normal [facility] STROKE CTA Head AND Neck W/C onon 12-17-2024 STROKE CTA Head AND Neck W/Con Normal [facility] Serum creatinine measurement (mass/volume)Ordered By: Seth Pritchard on 12-17-2024 Creatinine [Mass/Vol] 1.18 mg/dL Normal 0.70-1.20 [facility] Comment on above: Performed By: #### L 501.4021, L300.4310, L100.0100, L500.2500, L300.3900 ####[facility] [address] [place], [address] Serum glucose measurement (m ass/volume)Ordered By: Seth Pritchard on 12-17-2024 Glucose [Mass/Vol] 137 mg/dL High 70-99 [facility] Comment on above: Performed By: #### L 501.4021, L300.4310, L100.0100, L500.2500, L300.3900 ####[facility] [address] [place], [address] Serum or plasma calcium luis urement (mass/volume)Ordered By: Seth Pritchard on 12-17-2024 Calcium [Mass/Vol] 9.9 mg/dL Normal 7.6-11.0 [facility] Comment on above: Performed By: #### L 501.4021, L300.4310, L100.0100, L500.2500, L300.3900 ####[facility] [address] [place], [address] Serum or plasma urea nitroge n measurement (mass/volume)Ordered By: Seth Pritchard on 12-17-2024 Urea nitrogen [Mass/Vol] 31 mg/dL High 4-19 [facility] Comment on above: Performed By: #### L 501.4021, L300.4310, L100.0100, L500.2500, L300.3900 ####[facility] [address] [place], [address] Sodium levelOrdered By: Huang Pritchard on 12-17-2024 Sodium [Moles/Vol] 142 mmol/L Normal 133-145 [facility] Comment on above: Performed By: #### L 501.4021, L300.4310, L100.0100, L500.2500, L300.3900 ####[facility] [address] [place], [place], [id number] TSH DL <= 0.005 mIU/L QnOrde red By: Roman Patel on 12-17-2024 TSH Qn 3.380 uIU/mL 0.300-4.200 [facility] Thyroid Stim Hormone (TSH)on 12-17-2024 TSH 3.380 uIU/mL Normal 0.300-4.200 [facility] Comment on above: Performed By: #### L 501.9985, L501.9520 ####[facility] [address] [place], [address] Troponin T.cardiac [Mass/vol ume] in Serum or Plasma by High sensitivity methodOrdered By: Seth Pritchard on 12-17-2024 Troponin T.cardiac High sensitivity method [Mass/Vol] 23 ng/L High <22 [facility] Troponin T.cardiac High sensitivity method [Mass/Vol] 23 ng/L High <22 [facility] Troponin T.cardiac High sensitivity method [Mass/Vol] 27 ng/L High <22 [facility] White blood cell (WBC) count Ordered By: Seth Pritchard on 12-17-2024 WBC (Bld) [#/Vol] 8.5 10*3/uL Normal 4.4-11.0 [facility] Comment on above: Performed By: #### L 501.4021, L300.4310, L100.0100, L500.2500, L300.3900 ####[facility] [address] [place], [place], [id number] Anion gap in Serum or Plasma Ordered By: Lisha Talamantes on 12-16-2024 Anion gap [Moles/Vol] 12 mmol/L 5-15 [facility] BUN/creatinine ratioOrdered By: Lisha Talamantes on 12-16-2024 Urea nitrogen/Creatinine [Mass ratio] 24.5 mg/mg High 10-20 [facility] Basic Metabolic Profile (BMP )on 12-16-2024 BUN/CRE 24.5 RATIO High - [facility] Comment on above: Performed By: #### L 500.2500 ####[facility] [address] [place], [address] Calcium [Mass/Vol] 9.4 mg/dL Normal 7.6-11.0 [facility] Comment on above: Performed By: #### L 500.2500 ####[facility] [address] [place], [address] Chloride [Moles/Vol] 102 mmol/L Normal 98-108 [facility] Comment on above: Performed By: #### L 500.2500 ####[facility] [address] [place], [address] CO2 [Moles/Vol] 25.5 mmol/L Normal 21.0-32.0 [facility] Comment on above: Performed By: #### L 500.2500 ####[facility] [address] [place], [address] Creatinine [Mass/Vol] 1.17 mg/dL Normal 0.70-1.20 [facility] Comment on above: Performed By: #### L 500.2500 ####[facility] [address] [place], [address] ECRCL 52.78 ml/min Normal 50-250 [facility] Comment on above: Performed By: #### L 500.2500 ####[facility] [address] [place], [address] GAP 12 Normal 5-15 [facility] Comment on above: Performed By: #### L 500.2500 ####[facility] [address] [place], [address] GFR/1.73 sq M.predicted among non-blacks MDRD (S/P/Bld) [Vol rate/Area] 65 mL/min/{1.73_m2} Normal >60 [facility] Comment on above: Result Comment: mL/m in/1.73m2 CKD-EPI Creatinine Equation (2020) Performed By: #### L 500.2500 ####[facility] [address] [place], [address] Glucose [Mass/Vol] 108 mg/dL High 70-99 [facility] Comment on above: Performed By: #### L 500.2500 ####[facility] [address] [place], [address] Potassium [Moles/Vol] 3.6 mmol/L Normal 3.3-5.1 [facility] Comment on above: Performed By: #### L 500.2500 ####[facility] [address] [place], [address] Sodium [Moles/Vol] 140 mmol/L Normal 133-145 [facility] Comment on above: Performed By: #### L 500.2500 ####[facility] [address] [place], [address] Urea nitrogen [Mass/Vol] 29 mg/dL High 4-19 [facility] Comment on above: Performed By: #### L 500.2500 ####[facility] [address] [place], [address] Carbon dioxide, total [Moles /volume] in Central venous bloodOrdered By: Lisha Talamantes on 12-16-2024 CO2 [Moles/Vol] 25.5 mmol/L 21.0-32.0 [facility] Chloride assayOrdered By: Sierra Talamantes on 12-16-2024 Chloride [Moles/Vol] 102 mmol/L 98-108 [facility] Culture, Blood (WB)on 2024 CUB Blood cultures x2, from two different sites No growth in 5 days. Normal [facility] Comment on above: Performed By: #### M 200.1000 ####[facility] [address] [place], [place], [id number] Glomerular filtration rate ( GFR) estimation/1.73 sq m using serum, plasma, or whole bOrdered By: Lisha Talamantes on 12-16-2024 GFR/1.73 sq M.predicted among non-blacks MDRD (S/P/Bld) [Vol rate/Area] 65 mL/min/{1.73_m2} >60 [facility] Potassium measurement (mass/ volume)Ordered By: Lisha Talamantes on 12-16-2024 Potassium (Unsp spec) [Mass/Vol] 3.6 mmol/L 3.3-5.1 [facility] Serum creatinine measurement (mass/volume)Ordered By: Lisha Talamantes on 12-16-2024 Creatinine [Mass/Vol] 1.17 mg/dL 0.70-1.20 [facility] Serum glucose measurement (m ass/volume)Ordered By: Lisha Talamantes on 12-16-2024 Glucose [Mass/Vol] 108 mg/dL High 70-99 [facility] Serum or plasma calcium luis urement (mass/volume)Ordered By: Lisha Talamantes on 12-16-2024 Calcium [Mass/Vol] 9.4 mg/dL 7.6-11.0 [facility] Serum or plasma urea nitroge n measurement (mass/volume)Ordered By: Lisha Talamantes on 12-16-2024 Urea nitrogen [Mass/Vol] 29 mg/dL High 4-19 [facility] Sodium levelOrdered By: Cecilia Talamantes on 12-16-2024 Sodium [Moles/Vol] 140 mmol/L 133-145 [facility] Absolute lymphocyte countOrd ered By: Lisha Talamantes on 12-15-2024 Lymphocytes Auto (Unsp spec) [#/Vol] 0.82 10*3/uL Low 0.83-4.51 [facility] Automated lymphocyte count a s percentage of total leukocytesOrdered By: Lisha Talamantes on 12-15-2024 Lymphocytes/100 WBC Auto (Unsp spec) 9.8 % Low 19-41 [facility] Basic Metabolic Profile (BMP )on 12-15-2024 BUN/CRE 20.1 RATIO High 10-20 [facility] Comment on above: Performed By: #### L 501.2300, L500.2500, L100.0100, L501.5200 ####[facility] [address] [place], [address] Calcium [Mass/Vol] 9.3 mg/dL Normal 7.6-11.0 [facility] Comment on above: Performed By: #### L 501.2300, L500.2500, L100.0100, L501.5200 ####[facility] [address] [place], [address] Chloride [Moles/Vol] 106 mmol/L Normal 98-108 [facility] Comment on above: Performed By: #### L 501.2300, L500.2500, L100.0100, L501.5200 ####[facility] [address] [place], [address] CO2 [Moles/Vol] 24.0 mmol/L Normal 21.0-32.0 [facility] Comment on above: Performed By: #### L 501.2300, L500.2500, L100.0100, L501.5200 ####[facility] [address] [place], [address] Creatinine [Mass/Vol] 1.10 mg/dL Normal 0.70-1.20 [facility] Comment on above: Performed By: #### L 501.2300, L500.2500, L100.0100, L501.5200 ####[facility] [address] [place], [address] ECRCL 56.14 ml/min Normal 50-250 [facility] Comment on above: Performed By: #### L 501.2300, L500.2500, L100.0100, L501.5200 ####[facility] [address] [place], [address] GAP 12 Normal 5-15 [facility] Comment on above: Performed By: #### L 501.2300, L500.2500, L100.0100, L501.5200 ####[facility] [address] [place], [address] GFR/1.73 sq M.predicted among non-blacks MDRD (S/P/Bld) [Vol rate/Area] 70 mL/min/{1.73_m2} Normal >60 [facility] Comment on above: Result Comment: mL/m in/1.73m2 CKD-EPI Creatinine Equation (2020) Performed By: #### L 501.2300, L500.2500, L100.0100, L501.5200 ####[facility] [address] [place], [address] Glucose [Mass/Vol] 97 mg/dL Normal 70-99 [facility] Comment on above: Performed By: #### L 501.2300, L500.2500, L100.0100, L501.5200 ####[facility] [address] [place], [address] Potassium [Moles/Vol] 4.1 mmol/L Normal 3.3-5.1 [facility] Comment on above: Performed By: #### L 501.2300, L500.2500, L100.0100, L501.5200 ####[facility] [address] [place], [address] Sodium [Moles/Vol] 142 mmol/L Normal 133-145 [facility] Comment on above: Performed By: #### L 501.2300, L500.2500, L100.0100, L501.5200 ####[facility] [address] [place], [address] Urea nitrogen [Mass/Vol] 22 mg/dL High 4-19 [facility] Comment on above: Performed By: #### L 501.2300, L500.2500, L100.0100, L501.5200 ####[facility] [address] [place], [address] Basophil percentageOrdered B y: Lisha Talamantes on 12-15-2024 Basophils/100 WBC (Bld) 0.2 % 0-1 [facility] CBC W/Diff, Automatedon 11-18 Absolute Lymph 0.82 X10 3/uL Low 0.83-4.51 [facility] Comment on above: Performed By: #### L 501.2300, L500.2500, L100.0100, L501.5200 ####[facility] [address] [place], [address] Absolute Neut 7.0 X10 3/uL Normal 2.0-7.7 [facility] Comment on above: Performed By: #### L 501.2300, L500.2500, L100.0100, L501.5200 ####[facility] [address] [place], [address] Basophils/100 WBC (Bld) 0.2 % Normal 0-1 [facility] Comment on above: Performed By: #### L 501.2300, L500.2500, L100.0100, L501.5200 ####[facility] [address] [place], [address] Eosinophils/100 WBC (Bld) 0.0 % Normal 0-5 [facility] Comment on above: Performed By: #### L 501.2300, L500.2500, L100.0100, L501.5200 ####[facility] [address] [place], [address] Erythrocyte distribution width (RBC) [Ratio] 13.8 % Normal 11.6-14.6 [facility] Comment on above: Performed By: #### L 501.2300, L500.2500, L100.0100, L501.5200 ####[facility] [address] [place], [address] Hematocrit (Bld) [Volume fraction] 35.6 % Low 40-54 [facility] Comment on above: Performed By: #### L 501.2300, L500.2500, L100.0100, L501.5200 ####[facility] [address] [place], [address] Hemoglobin (Bld) [Mass/Vol] 11.3 g/dL Low 13.0-16.5 [facility] Comment on above: Performed By: #### L 501.2300, L500.2500, L100.0100, L501.5200 ####[facility] [address] [place], [address] IG% 0.400 Normal 0.0-0.9 [facility] Comment on above: Result Comment: IG% - Immature Granulocytes (promyelocytes, myelocytes andmetamyelocytes) > 1% indicates that a LEFT SHIFT is Present. Performed By: #### L 501.2300, L500.2500, L100.0100, L501.5200 ####[facility] [address] [place], [address] Lymphocytes/100 WBC (Bld) 9.8 % Low 19-41 [facility] Comment on above: Performed By: #### L 501.2300, L500.2500, L100.0100, L501.5200 ####[facility] [address] [place], [address] MCH (RBC) [Entitic mass] 28.2 pg Normal 27.0-32.0 [facility] Comment on above: Performed By: #### L 501.2300, L500.2500, L100.0100, L501.5200 ####[facility] [address] [place], [address] MCHC (RBC) [Mass/Vol] 31.7 g/dL Low 32-36 [facility] Comment on above: Performed By: #### L 501.2300, L500.2500, L100.0100, L501.5200 ####[facility] [address] [place], [address] MCV (RBC) [Entitic vol] 88.8 fL Normal 80-94 [facility] Comment on above: Performed By: #### L 501.2300, L500.2500, L100.0100, L501.5200 ####[facility] [address] [place], [address] Monocytes/100 WBC (Bld) 6.3 % Normal 0-10 [facility] Comment on above: Performed By: #### L 501.2300, L500.2500, L100.0100, L501.5200 ####[facility] [address] [place], [address] Neutrophils/100 WBC (Bld) 83.3 % High 47-70 [facility] Comment on above: Performed By: #### L 501.2300, L500.2500, L100.0100, L501.5200 ####[facility] [address] [place], [address] Nucleated RBC (Bld) [#/Vol] 0 10*3/uL Normal 0-5 [facility] Comment on above: Performed By: #### L 501.2300, L500.2500, L100.0100, L501.5200 ####[facility] [address] [place], [address] Platelet mean volume (Bld) [Entitic vol] 10.0 fL Normal 6.2-12.0 [facility] Comment on above: Performed By: #### L 501.2300, L500.2500, L100.0100, L501.5200 ####[facility] [address] [place], [address] Platelets (Bld) [#/Vol] 329 10*3/uL Normal 150-450 [facility] Comment on above: Performed By: #### L 501.2300, L500.2500, L100.0100, L501.5200 ####[facility] [address] [place], [address] RBC (Bld) [#/Vol] 4.01 10*6/uL Low 4.6-6.2 [facility] Comment on above: Performed By: #### L 501.2300, L500.2500, L100.0100, L501.5200 ####[facility] [address] [place], [address] RDW SD 44.9 fl High 35.1-43.9 [facility] Comment on above: Performed By: #### L 501.2300, L500.2500, L100.0100, L501.5200 ####[facility] [address] [place], [address] WBC (Bld) [#/Vol] 8.4 10*3/uL Normal 4.4-11.0 [facility] Comment on above: Performed By: #### L 501.2300, L500.2500, L100.0100, L501.5200 ####[facility] [address] [place], [address] Eosinophil percentageOrdered By: Lisha Talamantes on 12-15-2024 Eosinophils/100 WBC (Bld) 0.0 % 0-5 [facility] Erythrocyte distribution wid th ratioOrdered By: Lisha Talamantes on 12-15-2024 Erythrocyte distribution width (RBC) [Ratio] 13.8 % 11.6-14.6 [facility] Erythrocyte distribution wid th standard deviationOrdered By: Lisha Talamantes on 12-15-2024 Erythrocyte distribution width (RBC) [Ratio] 44.9 fl High 35.1-43.9 [facility] Hematocrit Auto (Bld) [Volum e fraction]Ordered By: Lisha aTlamantes on 12-15-2024 Hematocrit (Bld) [Volume fraction] 35.6 % Low 40-54 [facility] Hemoglobin measurementOrdere d By: Lisha Talamantes on 12-15-2024 Hemoglobin (Bld) [Mass/Vol] 11.3 g/dL Low 13.0-16.5 [facility] Immature granulocytes/100 WB C Auto (Bld)Ordered By: Lisha aTlamantes on 12-15-2024 Immature granulocytes/100 WBC (Bld) 0.400 % 0.0-0.9 [facility] MCV (mean corpuscular volume ) determinationOrdered By: Lisha Talamantes on 12-15-2024 MCV (RBC) [Entitic vol] 88.8 fL 80-94 [facility] Magnesiumon 12-15-2024 Magnesium [Mass/Vol] 2.0 mg/dL Normal 1.5-2.2 [facility] Comment on above: Performed By: #### L 501.2300, L500.2500, L100.0100, L501.5200 ####[facility] [address] [place], [place], [id number] Magnesium measurement (mass/ volume)Ordered By: Lisha Talamantes on 12-15-2024 Magnesium (Unsp spec) [Mass/Vol] 2.0 mg/dL 1.5-2.2 [facility] Mean corpuscular hemoglobin (MCH) determinationOrdered By: Lisha Talamantes on 12-15-2024 MCH (RBC) [Entitic mass] 28.2 pg 27.0-32.0 [facility] Monocyte percentageOrdered B y: Lisha Talamantes on 12-15-2024 Monocytes/100 WBC (Bld) 6.3 % 0-10 [facility] Neutrophil percentageOrdered By: Lisha Talamantes on 12-15-2024 Neutrophils/100 WBC (Bld) 83.3 % High 47-70 [facility] Phosphoruson 12-15-2024 Phosphate [Mass/Vol] 3.3 mg/dL Normal 2.7-4.5 [facility] Comment on above: Performed By: #### L 501.2300, L500.2500, L100.0100, L501.5200 ####[facility] [address] [place], [address] Platelet countOrdered By: Sierra Talamantes on 12-15-2024 Platelets (Bld) [#/Vol] 329 10*3/uL 150-450 [facility] RBC Auto (Bld) [#/Vol]Ordere d By: Lisha Talamantes on 12-15-2024 RBC (Bld) [#/Vol] 4.01 10*6/uL Low 4.6-6.2 [facility] White blood cell (WBC) count Ordered By: Lisha Talamantes on 12-15-2024 WBC (Bld) [#/Vol] 8.4 10*3/uL 4.4-11.0 [facility] Bilirubin, totalOrdered By: Shilpa Contreras on 12-14-2024 Bilirubin [Mass/Vol] mg/dL 0.00-1.30 [facility] CBC W/Diff, Automatedon 11-18 Absolute Lymph 0.65 X10 3/uL Low 0.83-4.51 [facility] Comment on above: Performed By: #### L 100.0100, L500.4050, L300.3900 ####[facility] [address] [place], [address] Absolute Neut 3.4 X10 3/uL Normal 2.0-7.7 [facility] Comment on above: Performed By: #### L 100.0100, L500.4050, L300.3900 ####[facility] [address] [place], [address] Basophils/100 WBC (Bld) 0.2 % Normal 0-1 [facility] Comment on above: Performed By: #### L 100.0100, L500.4050, L300.3900 ####[facility] [address] [place], [address] Eosinophils/100 WBC (Bld) 0.0 % Normal 0-5 [facility] Comment on above: Performed By: #### L 100.0100, L500.4050, L300.3900 ####[facility] [address] [place], [address] Erythrocyte distribution width (RBC) [Ratio] 13.7 % Normal 11.6-14.6 [facility] Comment on above: Performed By: #### L 100.0100, L500.4050, L300.3900 ####[facility] [address] [place], [address] Hematocrit (Bld) [Volume fraction] 33.7 % Low 40-54 [facility] Comment on above: Performed By: #### L 100.0100, L500.4050, L300.3900 ####[facility] [address] [place], [address] Hemoglobin (Bld) [Mass/Vol] 10.6 g/dL Low 13.0-16.5 [facility] Comment on above: Performed By: #### L 100.0100, L500.4050, L300.3900 ####[facility] [address] [place], [address] IG% 0.200 Normal 0.0-0.9 [facility] Comment on above: Result Comment: IG% - Immature Granulocytes (promyelocytes, myelocytes andmetamyelocytes) > 1% indicates that a LEFT SHIFT is Present. Performed By: #### L 100.0100, L500.4050, L300.3900 ####[facility] [address] [place], [address] Lymphocytes/100 WBC (Bld) 15.0 % Low 19-41 [facility] Comment on above: Performed By: #### L 100.0100, L500.4050, L300.3900 ####[facility] [address] [place], [address] MCH (RBC) [Entitic mass] 27.8 pg Normal 27.0-32.0 [facility] Comment on above: Performed By: #### L 100.0100, L500.4050, L300.3900 ####[facility] [address] [place], [address] MCHC (RBC) [Mass/Vol] 31.5 g/dL Low 32-36 [facility] Comment on above: Performed By: #### L 100.0100, L500.4050, L300.3900 ####[facility] [address] [place], [address] MCV (RBC) [Entitic vol] 88.5 fL Normal 80-94 [facility] Comment on above: Performed By: #### L 100.0100, L500.4050, L300.3900 ####[facility] [address] [place], [address] Monocytes/100 WBC (Bld) 5.3 % Normal 0-10 [facility] Comment on above: Performed By: #### L 100.0100, L500.4050, L300.3900 ####[facility] [address] [place], [address] Neutrophils/100 WBC (Bld) 79.3 % High 47-70 [facility] Comment on above: Performed By: #### L 100.0100, L500.4050, L300.3900 ####[facility] [address] [place], [address] Nucleated RBC (Bld) [#/Vol] 0 10*3/uL Normal 0-5 [facility] Comment on above: Performed By: #### L 100.0100, L500.4050, L300.3900 ####[facility] [address] [place], [address] Platelet mean volume (Bld) [Entitic vol] 10.1 fL Normal 6.2-12.0 [facility] Comment on above: Performed By: #### L 100.0100, L500.4050, L300.3900 ####[facility] [address] [place], [address] Platelets (Bld) [#/Vol] 306 10*3/uL Normal 150-450 [facility] Comment on above: Performed By: #### L 100.0100, L500.4050, L300.3900 ####[facility] [address] [place], [address] RBC (Bld) [#/Vol] 3.81 10*6/uL Low 4.6-6.2 [facility] Comment on above: Performed By: #### L 100.0100, L500.4050, L300.3900 ####[facility] [address] [place], [address] RDW SD 44.5 fl High 35.1-43.9 [facility] Comment on above: Performed By: #### L 100.0100, L500.4050, L300.3900 ####[facility] [address] [place], [address] WBC (Bld) [#/Vol] 4.3 10*3/uL Low 4.4-11.0 [facility] Comment on above: Performed By: #### L 100.0100, L500.4050, L300.3900 ####[facility] [address] [place], [address] Comprehensive Metabolic Prof ilon 12-14-2024 ALK PHOS 70 U/L Normal 40-129 [facility] Comment on above: Performed By: #### L 100.0100, L500.4050, L300.3900 ####[facility] [address] [place], [address] AST [Catalytic activity/Vol] 18 U/L Normal <=37 [facility] Comment on above: Performed By: #### L 100.0100, L500.4050, L300.3900 ####[facility] [address] [place], [address] BUN/CRE 12.3 RATIO Normal 10-20 [facility] Comment on above: Performed By: #### L 100.0100, L500.4050, L300.3900 ####[facility] [address] [place], [address] Calcium [Mass/Vol] 9.5 mg/dL Normal 7.6-11.0 [facility] Comment on above: Performed By: #### L 100.0100, L500.4050, L300.3900 ####[facility] [address] [place], [address] Chloride [Moles/Vol] 105 mmol/L Normal 98-108 [facility] Comment on above: Performed By: #### L 100.0100, L500.4050, L300.3900 ####[facility] [address] [place], [address] CO2 [Moles/Vol] 24.4 mmol/L Normal 21.0-32.0 [facility] Comment on above: Performed By: #### L 100.0100, L500.4050, L300.3900 ####[facility] [address] [place], [address] Creatinine [Mass/Vol] 1.04 mg/dL Normal 0.70-1.20 [facility] Comment on above: Performed By: #### L 100.0100, L500.4050, L300.3900 ####[facility] [address] [place], [place], [address] ECRCL 59.38 ml/min Normal 50-250 [facility] Comment on above: Performed By: #### L 100.0100, L500.4050, L300.3900 ####[facility] [address] [place], [address] GAP 13 Normal 5-15 [facility] Comment on above: Performed By: #### L 100.0100, L500.4050, L300.3900 ####[facility] [address] [place], [address] GFR/1.73 sq M.predicted among non-blacks MDRD (S/P/Bld) [Vol rate/Area] 75 mL/min/{1.73_m2} Normal >60 [facility] Comment on above: Result Comment: mL/m in/1.73m2 CKD-EPI Creatinine Equation (2020) Performed By: #### L 100.0100, L500.4050, L300.3900 ####[facility] [address] [place], [address] Glucose [Mass/Vol] 129 mg/dL High 70-99 [facility] Comment on above: Performed By: #### L 100.0100, L500.4050, L300.3900 ####[facility] [address] [place], [address] Potassium [Moles/Vol] 3.8 mmol/L Normal 3.3-5.1 [facility] Comment on above: Performed By: #### L 100.0100, L500.4050, L300.3900 ####[facility] [address] [place], [address] Sodium [Moles/Vol] 143 mmol/L Normal 133-145 [facility] Comment on above: Performed By: #### L 100.0100, L500.4050, L300.3900 ####[facility] [address] [place], [address] T BILI < 0.15 Normal 0.00-1.30 [facility] Comment on above: Performed By: #### L 100.0100, L500.4050, L300.3900 ####[facility] [address] [place], [address] T PROT 6.6 g/dL Normal 5.9-8.4 [facility] Comment on above: Performed By: #### L 100.0100, L500.4050, L300.3900 ####[facility] [address] [place], [address] Urea nitrogen [Mass/Vol] 13 mg/dL Normal 4-19 [facility] Comment on above: Performed By: #### L 100.0100, L500.4050, L300.3900 ####[facility] [address] [place], [address] No Panel InformationOrdered By: Shilpa Contreras on 12-14-2024 18 U/L <38 [facility] Prothrombin Time w/INRon INR Coag (PPP) [Relative time] 1.0 {INR} Normal [facility] Comment on above: Performed By: #### L 100.0100, L500.4050, L300.3900 ####[facility] [address] [place], [address] PT Coag (PPP) [Time] 13.5 s Normal 11.7-14.9 [facility] Comment on above: Performed By: #### L 100.0100, L500.4050, L300.3900 ####[facility] [address] [place], [address] Prothrombin timeOrdered By: Shilpa Contreras on 12-14-2024 PT Coag (PPP) [Time] 13.5 s 11.7-14.9 [facility] RESPIRATORY PANEL MOLECULARo n 12-14-2024 RP PANEL Normal [facility] Comment on above: Performed By: #### M 100.638 ####[facility] [address] [place], [address] Serum globulin measurementOr dered By: Shilpa Contreras on 12-14-2024 Globulin (S) [Mass/Vol] 2.5 g/dL Normal 2.2-4.2 [facility] Comment on above: Performed By: #### L 100.0100, L500.4050, L300.3900 ####[facility] [address] [place], [address] Serum or plasma alanine saul otransferase (ALT) measurementOrdered By: Shilpa Contreras on 12-14-2024 ALT [Catalytic activity/Vol] 16 U/L Normal <=46 [facility] Comment on above: Performed By: #### L 100.0100, L500.4050, L300.3900 ####[facility] [address] [place], [address] Serum or plasma albumin luis urement (mass/volume)Ordered By: Shilpa Contreras on 12-14-2024 Albumin [Mass/Vol] 4.0 g/dL Normal 3.4-4.8 [facility] Comment on above: Performed By: #### L 100.0100, L500.4050, L300.3900 ####[facility] [address] [place], [address] Serum or plasma albumin/glob ulin mass ratioOrdered By: Shilpa Ben on 12-14-2024 Albumin/Globulin [Mass ratio] 1.6 {ratio} Normal 0.9-2.4 [facility] Comment on above: Performed By: #### L 100.0100, L500.4050, L300.3900 ####[facility] [address] [place], [address] Serum or plasma alkaline kathleen sphatase measurementOrdered By: Shilpa Ben on 12-14-2024 ALP [Catalytic activity/Vol] 70 U/L 40-129 [facility] Total proteinOrdered By: Roverto donovan Contreras on 12-14-2024 Protein [Mass/Vol] 6.6 g/dL 5.9-8.4 [facility] Absolute lymphocyte countOrd ered By: Remus Ungkevin on 12-13-2024 Lymphocytes Auto (Unsp spec) [#/Vol] 1.16 10*3/uL 0.83-4.51 [facility] Absolute neutrophil countOrd ered By: Remus Ungur on 12-13-2024 Neutrophils (Bld) [#/Vol] 4.0 10*3/uL 2.0-7.7 [facility] Anion gap in Serum or Plasma Ordered By: Remus Aaron on 12-13-2024 Anion gap [Moles/Vol] 13 mmol/L 5-15 [facility] Automated lymphocyte count a s percentage of total leukocytesOrdered By: Remus Walker on 12-13-2024 Lymphocytes/100 WBC Auto (Unsp spec) 19.5 % 19-41 [facility] BUN/creatinine ratioOrdered By: Charis Walker on 12-13-2024 Urea nitrogen/Creatinine [Mass ratio] 11.0 mg/mg 10-20 [facility] Basic Metabolic Profile (BMP )on 12-13-2024 BUN/CRE 11.0 RATIO Normal -20 [facility] Comment on above: Performed By: #### L 500.2500, L100.0100 ####[facility] [address] [place], [address] Calcium [Mass/Vol] 9.7 mg/dL Normal 7.6-11.0 [facility] Comment on above: Performed By: #### L 500.2500, L100.0100 ####[facility] [address] [place], [address] Chloride [Moles/Vol] 104 mmol/L Normal 98-108 [facility] Comment on above: Performed By: #### L 500.2500, L100.0100 ####[facility] [address] [place], [address] CO2 [Moles/Vol] 24.4 mmol/L Normal 21.0-32.0 [facility] Comment on above: Performed By: #### L 500.2500, L100.0100 ####[facility] [address] [place], [address] Creatinine [Mass/Vol] 1.11 mg/dL Normal 0.70-1.20 [facility] Comment on above: Performed By: #### L 500.2500, L100.0100 ####[facility] [address] [place], [address] ECRCL 55.63 ml/min Normal 50-250 [facility] Comment on above: Performed By: #### L 500.2500, L100.0100 ####[facility] [address] [place], [address] GAP 13 Normal 5-15 [facility] Comment on above: Performed By: #### L 500.2500, L100.0100 ####[facility] [address] [place], [address] GFR/1.73 sq M.predicted among non-blacks MDRD (S/P/Bld) [Vol rate/Area] 69 mL/min/{1.73_m2} Normal >60 [facility] Comment on above: Result Comment: mL/m in/1.73m2 CKD-EPI Creatinine Equation (2020) Performed By: #### L 500.2500, L100.0100 ####[facility] [address] [place], [address] Glucose [Mass/Vol] 102 mg/dL High 70-99 [facility] Comment on above: Performed By: #### L 500.2500, L100.0100 ####[facility] [address] [place], [address] Potassium [Moles/Vol] 3.7 mmol/L Normal 3.3-5.1 [facility] Comment on above: Performed By: #### L 500.2500, L100.0100 ####[facility] [address] [place], [address] Sodium [Moles/Vol] 141 mmol/L Normal 133-145 [facility] Comment on above: Performed By: #### L 500.2500, L100.0100 ####[facility] [address] [place], [address] Urea nitrogen [Mass/Vol] 12 mg/dL Normal 4-19 [facility] Comment on above: Performed By: #### L 500.2500, L100.0100 ####[facility] [address] [place], [address] Basophil percentageOrdered B y: Remus Ungur on 12-13-2024 Basophils/100 WBC (Bld) 1.0 % 0-1 [facility] Blood cultureOrdered By: Rem us Ungur on 12-13-2024 Bacteria identified Cx Nom (Bld) No growth in 5 days. [facility] Bacteria identified Cx Nom (Bld) No growth in 5 days. [facility] CBC W/Diff, Automatedon - Absolute Lymph 1.16 X10 3/uL Normal 0.83-4.51 [facility] Comment on above: Performed By: #### L 500.2500, L100.0100 ####[facility] [address] [place], [address] Absolute Neut 4.0 X10 3/uL Normal 2.0-7.7 [facility] Comment on above: Performed By: #### L 500.2500, L100.0100 ####[facility] [address] [place], [address] Basophils/100 WBC (Bld) 1.0 % Normal 0-1 [facility] Comment on above: Performed By: #### L 500.2500, L100.0100 ####[facility] [address] [place], [address] Eosinophils/100 WBC (Bld) 3.0 % Normal 0-5 [facility] Comment on above: Performed By: #### L 500.2500, L100.0100 ####[facility] [address] [place], [address] Erythrocyte distribution width (RBC) [Ratio] 13.7 % Normal 11.6-14.6 [facility] Comment on above: Performed By: #### L 500.2500, L100.0100 ####[facility] [address] [place], [address] Hematocrit (Bld) [Volume fraction] 37.5 % Low 40-54 [facility] Comment on above: Performed By: #### L 500.2500, L100.0100 ####[facility] [address] [place], [address] Hemoglobin (Bld) [Mass/Vol] 11.5 g/dL Low 13.0-16.5 [facility] Comment on above: Performed By: #### L 500.2500, L100.0100 ####[facility] [address] [place], [address] IG% 0.300 Normal 0.0-0.9 [facility] Comment on above: Result Comment: IG% - Immature Granulocytes (promyelocytes, myelocytes andmetamyelocytes) > 1% indicates that a LEFT SHIFT is Present. Performed By: #### L 500.2500, L100.0100 ####[facility] [address] [place], [address] Lymphocytes/100 WBC (Bld) 19.5 % Normal 19-41 [facility] Comment on above: Performed By: #### L 500.2500, L100.0100 ####[facility] [address] [place], [address] MCH (RBC) [Entitic mass] 27.7 pg Normal 27.0-32.0 [facility] Comment on above: Performed By: #### L 500.2500, L100.0100 ####[facility] [address] [place], [address] MCHC (RBC) [Mass/Vol] 30.7 g/dL Low 32-36 [facility] Comment on above: Performed By: #### L 500.2500, L100.0100 ####[facility] [address] [place], [address] MCV (RBC) [Entitic vol] 90.4 fL Normal 80-94 [facility] Comment on above: Performed By: #### L 500.2500, L100.0100 ####[facility] [address] [place], [address] Monocytes/100 WBC (Bld) 8.9 % Normal 0-10 [facility] Comment on above: Performed By: #### L 500.2500, L100.0100 ####[facility] [address] [place], [address] Neutrophils/100 WBC (Bld) 67.3 % Normal 47-70 [facility] Comment on above: Performed By: #### L 500.2500, L100.0100 ####[facility] [address] [place], [address] Nucleated RBC (Bld) [#/Vol] 0 10*3/uL Normal 0-5 [facility] Comment on above: Performed By: #### L 500.2500, L100.0100 ####[facility] [address] [place], [address] Platelet mean volume (Bld) [Entitic vol] 9.7 fL Normal 6.2-12.0 [facility] Comment on above: Performed By: #### L 500.2500, L100.0100 ####[facility] [address] [place], [address] Platelets (Bld) [#/Vol] 299 10*3/uL Normal 150-450 [facility] Comment on above: Performed By: #### L 500.2500, L100.0100 ####[facility] [address] [place], [address] RBC (Bld) [#/Vol] 4.15 10*6/uL Low 4.6-6.2 [facility] Comment on above: Performed By: #### L 500.2500, L100.0100 ####[facility] [address] [place], [address] RDW SD 44.8 fl High 35.1-43.9 [facility] Comment on above: Performed By: #### L 500.2500, L100.0100 ####[facility] [address] [place], [address] WBC (Bld) [#/Vol] 5.9 10*3/uL Normal 4.4-11.0 [facility] Comment on above: Performed By: #### L 500.2500, L100.0100 ####[facility] [address] [place], [address] CO2 (BldV) [Moles/Vol]Ordere d By: Shilpa Contreras on 12-13-2024 CO2 [Moles/Vol] 28 mmol/L 23-33 [facility] Carbon dioxide, total [Moles /volume] in Central venous bloodOrdered By: Charis Walker on 12-13-2024 CO2 [Moles/Vol] 24.4 mmol/L 21.0-32.0 [facility] Chest 1 View (Portable)on Chest 1 View (Portable) Normal [facility] Chloride assayOrdered By: Ame Walker on 12-13-2024 Chloride [Moles/Vol] 104 mmol/L 98-108 [facility] Summary on 12-13-2024 Emergency Department Summary Normal [facility] Eosinophil percentageOrdered By: Charis Walker on 12-13-2024 Eosinophils/100 WBC (Bld) 3.0 % 0-5 [facility] Erythrocyte distribution wid th ratioOrdered By: Charis Walker on 12-13-2024 Erythrocyte distribution width (RBC) [Ratio] 13.7 % 11.6-14.6 [facility] Erythrocyte distribution wid th standard deviationOrdered By: Charis Walker on 12-13-2024 Erythrocyte distribution width (RBC) [Ratio] 44.8 fl High 35.1-43.9 [facility] Glomerular filtration rate ( GFR) estimation/1.73 sq m using serum, plasma, or whole bOrdered By: Charis Walker on 12-13-2024 GFR/1.73 sq M.predicted among non-blacks MDRD (S/P/Bld) [Vol rate/Area] 69 mL/min/{1.73_m2} >60 [facility] Comment on above: mL/min/1.73m2 CKD-EP I Creatinine Equation (2020) H AND P Exam - [facility] 12-13-2024 H&P Exam - Hospitalist Normal [facility] Hematocrit Auto (Bld) [Volum e fraction]Ordered By: Charis Walker on 12-13-2024 Hematocrit (Bld) [Volume fraction] 37.5 % Low 40-54 [facility] Hemoglobin measurementOrdere d By: Charis Walker on 12-13-2024 Hemoglobin (Bld) [Mass/Vol] 11.5 g/dL Low 13.0-16.5 [facility] Immature granulocytes/100 WB C Auto (Bld)Ordered By: Charis Walker on 12-13-2024 Immature granulocytes/100 WBC (Bld) 0.300 % 0.0-0.9 [facility] Comment on above: IG% - Immature Granu locytes (promyelocytes, myelocytes and metamyelocytes) > 1% indicates that a LEFT SHIFT is Present. Influenza virus A and B and SARS-CoV-2 (COVID-19) and Respiratory syncytial virus RNAOrdered By: Charis Walker on 12-13-2024 SARS-CoV-2 (COVID-19) RNA ALEENA+probe Ql (Unsp spec) [facility] International normalized rat io (INR) calculationOrdered By: Charis Walker on 12-13-2024 INR Coag (Bld) [Relative time] 0.9 {INR} [facility] L509.7001on 12-13-2024 Procalcitonin 0.05 ng/mL Normal <=0.10 [facility] Comment on above: Result Comment: Inte rpretation:<0.10-0.25 ng/mL: Antibiotic therapy discouraged. Bacterialinfection unlikely.0.25-0.50 ng/mL: Antibiotic therapy encouraged. Bacterialinfection possible.>0.50 ng/mL: Antibiotic therapy strongly encouraged.Suggestive of presence of bacterial infection.PCT should always be interpreted in the clinical context ofthe patient. Therefore, clinicians should use the PCTresults in conjunction with other laboratory findings andclinical signs of the patient. Performed By: #### L 509.7001 ####[facility] [address] [facility] [place], [address] M100.678on 12-13-2024 M100.678 Pending SARS-CoV-2 (COVID 19) Negative INFLUENZA A Negative INFLUENZA B Negative RSV PCR Negative Normal [facility] Comment on above: Performed By: #### M 100.678 ####[facility] [address] [place], [address] MCV (mean corpuscular volume ) determinationOrdered By: Charis Walker on 12-13-2024 MCV (RBC) [Entitic vol] 90.4 fL 80-94 [facility] Mean corpuscular hemoglobin (MCH) determinationOrdered By: Charis Walker on 12-13-2024 MCH (RBC) [Entitic mass] 27.7 pg 27.0-32.0 [facility] Mean corpuscular hemoglobin concentration (MCHC) determinationOrdered By: Charis Walker on 12-13-2024 MCHC (RBC) [Mass/Vol] 30.7 g/dL Low 32-36 [facility] Mean platelet volume determi nationOrdered By: Charis Walker on 12-13-2024 Platelet mean volume (Bld) [Entitic vol] 9.7 fL 6.2-12.0 [facility] Monocyte percentageOrdered B y: Charis Walker on 12-13-2024 Monocytes/100 WBC (Bld) 8.9 % 0-10 [facility] Neutrophil percentageOrdered By: Charis Walker on 12-13-2024 Neutrophils/100 WBC (Bld) 67.3 % 47-70 [facility] No Panel InformationOrdered By: Shilpa Contreras on 12-13-2024 Blood Gas Sample Site Not entered [facility] Blood Gas Specimen Type LASHAE [facility] Oxygen Delivery Device Cannula [facility] LASAHE [facility] Not entered [facility] Cannula [facility] Nucleated red blood cell per centageOrdered By: Charis Walker on 12-13-2024 Nucleated RBC/100 WBC (Bld) [Ratio] 0 % 0-5 [facility] Platelet countOrdered By: Ame Walker on 12-13-2024 Platelets (Bld) [#/Vol] 299 10*3/uL 150-450 [facility] Potassium measurement (mass/ volume)Ordered By: Charis Walker on 12-13-2024 Potassium (Unsp spec) [Mass/Vol] 3.7 mmol/L 3.3-5.1 [facility] Procalcitonin [Mass/volume] in Serum or Plasma by ImmunoassayOrdered By: Shilpa Contreras on 12-13-2024 Procalcitonin IA [Mass/Vol] 0.05 ng/mL <0.11 [facility] Prothrombin Time w/INRon INR Coag (PPP) [Relative time] 0.9 {INR} Normal [facility] Comment on above: Performed By: #### L 414.1850 ####[facility] [address] [place], [place], [address] PT Coag (PPP) [Time] 12.5 s Normal 11.7-14.9 [facility] Comment on above: Performed By: #### L 300.3900 ####[facility] [address] [place], [place], [address] Prothrombin timeOrdered By: Charis Walker on 12-13-2024 PT Coag (PPP) [Time] 12.5 s 11.7-14.9 [facility] RBC Auto (Bld) [#/Vol]Ordere d By: Charis Walker on 12-13-2024 RBC (Bld) [#/Vol] 4.15 10*6/uL Low 4.6-6.2 [facility] Respiratory pathogens detect ion panel by molecular detection methodOrdered By: Shilpa Contreras on 12-13-2024 Respiratory pathogens DNA and RNA panel ALEENA+probe (Resp) [facility] Serum creatinine measurement (mass/volume)Ordered By: Charis Walker on 12-13-2024 Creatinine [Mass/Vol] 1.11 mg/dL 0.70-1.20 [facility] Serum glucose measurement (m ass/volume)Ordered By: Charis Walker on 12-13-2024 Glucose [Mass/Vol] 102 mg/dL High 70-99 [facility] Serum or plasma calcium luis urement (mass/volume)Ordered By: [facility] on 12-13-2024 Calcium [Mass/Vol] 9.7 mg/dL 7.6-11.0 [facility] Serum or plasma urea nitroge n measurement (mass/volume)Ordered By: Charis Walker on 12-13-2024 Urea nitrogen [Mass/Vol] 12 mg/dL 4-19 [facility] Sodium levelOrdered By: Nelson Walker on 12-13-2024 Sodium [Moles/Vol] 141 mmol/L 133-145 [facility] Venous Blood Gason 5 Blood Gas Type LASHAE Normal [facility] Comment on above: Performed By: #### L 9000.0810 ####[facility] [address] [place], [place], [address] CO2 [Moles/Vol] 28 mmol/L Normal 23-33 [facility] Comment on above: Performed By: #### L 9000.0810 ####[facility] [address] [place], [address] FI02 4.0 Normal [facility] Comment on above: Performed By: #### L 9000.0810 ####[facility] [address] [place], [address] HCO3 (Bld) [Moles/Vol] 26 mmol/L Normal 22-26 [facility] Comment on above: Performed By: #### L 9000.0810 ####[facility] [address] [place], [address] O2 Delivery Dev Cannula Normal [facility] Comment on above: Performed By: #### L 9000.0810 ####[facility] [address] [place], [address] SITE Not entered Normal [facility] Comment on above: Performed By: #### L 9000.0810 ####[facility] [address] [place], [address] VBG BE 2 mmol/L Normal -1.0-3.5 [facility] Comment on above: Performed By: #### L 9000.0810 ####[facility] [address] [place], [address] VBG pCO2 42.7 mmHg Normal 41-51 [facility] Comment on above: Performed By: #### L 9000.0810 ####[facility] [address] [place], [address] VBG pH 7.40 Normal 7.32-7.42 [facility] Comment on above: Performed By: #### L 9000.0810 ####[facility] [address] [place], [address] VBG PO2 56 mmHg High 25-40 [facility] Comment on above: Performed By: #### L 9000.0810 ####[facility] [address] [place], [place], [address] VBG SO2 89 High 50-70 [facility] Comment on above: Performed By: #### L 9000.0810 ####[facility] [address] [place], [place], [address] Venous blood base excess arlyn surementOrdered By: Shilpa Contreras on 12-13-2024 Base excess Calc (BldV) [Moles/Vol] 2 mmol/L -1.0-3.5 [facility] Venous blood bicarbonate arlyn surementOrdered By: Shilpa Contreras on 12-13-2024 HCO3 (Bld) [Moles/Vol] 26 mmol/L 22-26 [facility] Venous blood oxygen saturati on measurementOrdered By: Shilpa Contreras on 12-13-2024 Oxygen saturation in Blood 89 % High 50-70 [facility] Venous blood pH measurementO rdered By: Shilpa Contreras on 12-13-2024 pH (BldV) 7.40 [pH] 7.32-7.42 [facility] Venous blood partial pressur e of carbon dioxide measurementOrdered By: Shilpa Contreras on 12-13-2024 CO2 (BldV) [Partial pressure] 42.7 mm[Hg] 41-51 [facility] Venous blood partial pressur e of oxygen measurementOrdered By: Shilpa Contreras on 12-13-2024 Oxygen (BldV) [Partial pressure] 56 mm[Hg] High 25-40 [facility] White blood cell (WBC) count Ordered By: Charis Walker on 12-13-2024 WBC (Bld) [#/Vol] 5.9 10*3/uL 4.4-11.0 [facility] CBC W Auto Differential pane l (Bld)on 12-12-2024 Basophils (Bld) [#/Vol] 0.09 10*3/uL [facility] Basophils/100 WBC (Bld) 1.5 % C [facility] Differential cell count method Nom (Bld) Auto [facility] Eosinophils (Bld) [#/Vol] 0.22 10*3/uL [facility] Eosinophils/100 WBC (Bld) 3.7 % [facility] Erythrocyte distribution width (RBC) [Ratio] 13.8 % 11.5 - 15.0 % [facility] Hematocrit (Bld) [Volume fraction] 38.3 % Low 39.0 - 51.0 % [facility] Hemoglobin (Bld) [Mass/Vol] 11.7 g/dL Low 13.0 - 17.0 g/dL [facility] Immature granulocytes (Bld) [#/Vol] [facility] MARYVALEF [facility] Immature granulocytes/100 WBC (Bld) 0.3 % [facility] Interpretation and review of laboratory results Abnormal [facility] Lymphocytes (Bld) [#/Vol] 0.8 10*3/uL Low [facility] Lymphocytes/100 WBC (Bld) 13.6 % [facility] MCH (RBC) [Entitic mass] 27.9 pg 26. 0 - 34.0 pg [facility] MCHC (RBC) [Mass/Vol] 30.5 g/dL 30.5 - 36.0 g/dL [facility] MCV (RBC) [Entitic vol] 91.4 fL 80.0 - 100.0 fL [facility] Monocytes (Bld) [#/Vol] 0.51 10*3/uL [facility] Monocytes/100 WBC (Bld) 8.7 % C [facility] Neutrophils (Bld) [#/Vol] 4.25 10*3/uL [facility] Neutrophils/100 WBC (Bld) 72.2 % [facility] Nucleated RBC (Bld) [#/Vol] [facility] MARYVALEF [facility] Nucleated RBC/100 WBC (Bld) [Ratio] 0 % /100 WBC [facility] Platelet mean volume (Bld) [Entitic vol] 10.5 fL 9.0 - 12.7 fL [facility] Platelets (Bld) [#/Vol] 310 10*3/uL [facility] RBC (Bld) [#/Vol] 4.19 10*6/uL Low 4.20 - 6.0 0 m/uL [facility] WBC (Bld) [#/Vol] 5.89 10*3/uL [facility] Anion gap in Serum or Plasma Ordered By: Carla Crane on 12-02-2024 Anion gap [Moles/Vol] 11 mmol/L -15 [facility] BUN/creatinine ratioOrdered By: Carla Crane on 12-02-2024 Urea nitrogen/Creatinine [Mass ratio] 23.5 mg/mg High - [facility] Basic Metabolic Profile (BMP )on 12-02-2024 BUN/CRE 23.5 RATIO High - [facility] Comment on above: Order Comment: 307.2 Performed By: #### L 100.0500, L500.2500, L506.1001 ####[facility] [address] [place], [address] Calcium [Mass/Vol] 9.4 mg/dL Normal 7.6-11.0 [facility] Comment on above: Order Comment: 307.2 Performed By: #### L 100.0500, L500.2500, L506.1001 ####[facility] [address] [place], [address] Chloride [Moles/Vol] 104 mmol/L Normal 98-108 [facility] Comment on above: Order Comment: 307.2 Performed By: #### L 100.0500, L500.2500, L506.1001 ####[facility] [address] [place], [address] CO2 [Moles/Vol] 25.5 mmol/L Normal 21.0-32.0 [facility] Comment on above: Order Comment: 307.2 Performed By: #### L 100.0500, L500.2500, L506.1001 ####[facility] [address] [place], [address] Creatinine [Mass/Vol] 1.21 mg/dL High 0.70-1.20 [facility] Comment on above: Order Comment: 307.2 Performed By: #### L 100.0500, L500.2500, L506.1001 ####[facility] [address] [place], [address] GAP 11 Normal 5-15 [facility] Comment on above: Order Comment: 307.2 Performed By: #### L 100.0500, L500.2500, L506.1001 ####[facility] [address] [place], [address] GFR/1.73 sq M.predicted among non-blacks MDRD (S/P/Bld) [Vol rate/Area] 62 mL/min/{1.73_m2} Normal >60 [facility] Comment on above: Order Comment: 307.2 Result Comment: mL/m in/1.73m2 CKD-EPI Creatinine Equation (2020) Performed By: #### L 100.0500, L500.2500, L506.1001 ####[facility] [address] [place], [address] Glucose [Mass/Vol] 86 mg/dL Normal 70-99 [facility] Comment on above: Order Comment: 307.2 Performed By: #### L 100.0500, L500.2500, L506.1001 ####[facility] [address] [place], [address] Potassium [Moles/Vol] 4.1 mmol/L Normal 3.3-5.1 [facility] Comment on above: Order Comment: 307.2 Performed By: #### L 100.0500, L500.2500, L506.1001 ####[facility] [address] [place], [address] Sodium [Moles/Vol] 141 mmol/L Normal 133-145 [facility] Comment on above: Order Comment: 307.2 Performed By: #### L 100.0500, L500.2500, L506.1001 ####[facility] [address] [place], [address] Urea nitrogen [Mass/Vol] 28 mg/dL High 4-19 [facility] Comment on above: Order Comment: 307.2 Performed By: #### L 100.0500, L500.2500, L506.1001 ####[facility] [address] [place], [address] CBC-Complete Blood Cnt No Di ffon 12-02-2024 Erythrocyte distribution width (RBC) [Ratio] 13.2 % Normal 11.6-14.6 [facility] Comment on above: Order Comment: 307.2 Performed By: #### L 100.0500, L500.2500, L506.1001 ####[facility] [address] [place], [address] Hematocrit (Bld) [Volume fraction] 35.2 % Low 40-54 [facility] Comment on above: Order Comment: 307.2 Performed By: #### L 100.0500, L500.2500, L506.1001 ####[facility] [address] [place], [address] Hemoglobin (Bld) [Mass/Vol] 11.1 g/dL Low 13.0-16.5 [facility] Comment on above: Order Comment: 307.2 Performed By: #### L 100.0500, L500.2500, L506.1001 ####[facility] [address] [place], [address] MCH (RBC) [Entitic mass] 28.6 pg Normal 27.0-32.0 [facility] Comment on above: Order Comment: 307.2 Performed By: #### L 100.0500, L500.2500, L506.1001 ####[facility] [address] [place], [address] MCHC (RBC) [Mass/Vol] 31.5 g/dL Low 32-36 [facility] Comment on above: Order Comment: 307.2 Performed By: #### L 100.0500, L500.2500, L506.1001 ####[facility] [address] [place], [address] MCV (RBC) [Entitic vol] 90.7 fL Normal 80-94 [facility] Comment on above: Order Comment: 307.2 Performed By: #### L 100.0500, L500.2500, L506.1001 ####[facility] [address] [place], [address] Platelet mean volume (Bld) [Entitic vol] 10.2 fL Normal 6.2-12.0 [facility] Comment on above: Order Comment: 307.2 Performed By: #### L 100.0500, L500.2500, L506.1001 ####[facility] [address] [place], [address] Platelets (Bld) [#/Vol] 314 10*3/uL Normal 150-450 [facility] Comment on above: Order Comment: 307.2 Performed By: #### L 100.0500, L500.2500, L506.1001 ####[facility] [address] [place], [address] RBC (Bld) [#/Vol] 3.88 10*6/uL Low 4.6-6.2 [facility] Comment on above: Order Comment: 307.2 Performed By: #### L 100.0500, L500.2500, L506.1001 ####[facility] [address] [place], [address] RDW SD 43.6 fl Normal 35.1-43.9 [facility] Comment on above: Order Comment: 307.2 Performed By: #### L 100.0500, L500.2500, L506.1001 ####[facility] [address] [place], [address] WBC (Bld) [#/Vol] 5.1 10*3/uL Normal 4.4-11.0 [facility] Comment on above: Order Comment: 307.2 Performed By: #### L 100.0500, L500.2500, L506.1001 ####[facility] [address] [place], [address] Carbon dioxide, total [Moles /volume] in Central venous bloodOrdered By: Carla Crane on 12-02-2024 CO2 [Moles/Vol] 25.5 mmol/L 21.0-32.0 [facility] Chloride assayOrdered By: Wilfredo Crane on 12-02-2024 Chloride [Moles/Vol] 104 mmol/L 98-108 [facility] Erythrocyte distribution wid th ratioOrdered By: Carla Crane on 12-02-2024 Erythrocyte distribution width (RBC) [Ratio] 13.2 % 11.6-14.6 [facility] Erythrocyte distribution wid th standard deviationOrdered By: Carla Crane on 12-02-2024 Erythrocyte distribution width (RBC) [Ratio] 43.6 fl 35.1-43.9 [facility] Glomerular filtration rate ( GFR) estimation/1.73 sq m using serum, plasma, or whole bOrdered By: Carla Crane on 12-02-2024 GFR/1.73 sq M.predicted among non-blacks MDRD (S/P/Bld) [Vol rate/Area] 62 mL/min/{1.73_m2} >60 [facility] Comment on above: mL/min/1.73m2 CKD-EP I Creatinine Equation (2020) Hematocrit Auto (Bld) [Volum e fraction]Ordered By: Carla Crane on 12-02-2024 Hematocrit (Bld) [Volume fraction] 35.2 % Low 40-54 [facility] Hemoglobin measurementOrdere d By: Carla Crane on 12-02-2024 Hemoglobin (Bld) [Mass/Vol] 11.1 g/dL Low 13.0-16.5 [facility] MCV (mean corpuscular volume ) determinationOrdered By: Carla Crane on 12-02-2024 MCV (RBC) [Entitic vol] 90.7 fL 80-94 [facility] Mean corpuscular hemoglobin (MCH) determinationOrdered By: Carla Crane on 12-02-2024 MCH (RBC) [Entitic mass] 28.6 pg 27.0-32.0 [facility] Mean corpuscular hemoglobin concentration (MCHC) determinationOrdered By: Carla Crane on 12-02-2024 MCHC (RBC) [Mass/Vol] 31.5 g/dL Low 32-36 [facility] Mean platelet volume determi nationOrdered By: Carla Crane on 12-02-2024 Platelet mean volume (Bld) [Entitic vol] 10.2 fL 6.2-12.0 [facility] Platelet countOrdered By: Wilfredo Crane on 12-02-2024 Platelets (Bld) [#/Vol] 314 10*3/uL 150-450 [facility] Potassium measurement (mass/ volume)Ordered By: Carla Crane on 12-02-2024 Potassium (Unsp spec) [Mass/Vol] 4.1 mmol/L 3.3-5.1 [facility] RBC Auto (Bld) [#/Vol]Ordere d By: Carla Crane on 12-02-2024 RBC (Bld) [#/Vol] 3.88 10*6/uL Low 4.6-6.2 [facility] Serum creatinine measurement (mass/volume)Ordered By: Carla Crane on 12-02-2024 Creatinine [Mass/Vol] 1.21 mg/dL High 0.70-1.20 [facility] Serum glucose measurement (m ass/volume)Ordered By: Carla Crane on 12-02-2024 Glucose [Mass/Vol] 86 mg/dL 70-99 [facility] Serum or plasma calcium luis urement (mass/volume)Ordered By: Carla Crane on 12-02-2024 Calcium [Mass/Vol] 9.4 mg/dL 7.6-11.0 [facility] Serum or plasma urea nitroge n measurement (mass/volume)Ordered By: Carla Crane on 12-02-2024 Urea nitrogen [Mass/Vol] 28 mg/dL High 4-19 [facility] Sodium levelOrdered By: Luca Crane on 12-02-2024 Sodium [Moles/Vol] 141 mmol/L 133-145 [facility] Vitamin D,25 Hydroxyon 12-02 Vitamin D 25-OH 46.6 ng/mL Normal 30-100 [facility] Comment on above: Order Comment: 307.2 Result Comment: Teri min D StatusDeficiency: <20 ng/mL (50nmol/L)Insufficiency: 20-30 ng/mL (50-75 nmol/L)Sufficiency: 30-100 ng/mL (75-250 nmol/L)Toxicity: >100 ng/mL (>250 nmol/L) Performed By: #### L 100.0500, L500.2500, L506.1001 ####[facility] [address] [place], [place], [id number] White blood cell (WBC) count Ordered By: Carla Crane on 12-02-2024 WBC (Bld) [#/Vol] 5.1 10*3/uL 4.4-11.0 [facility] Calculated very low density lipoprotein (VLDL) cholesterol measurementOrdered By: Carla Crane on 11-05-2024 Calculated very low density lipoprotein (VLDL) cholesterol measurement 13 mg/dL 5-40 [facility] LDL calc ser/plasOrdered By: Carla Crane on 11-05-2024 Cholesterol in LDL [Mass/Vol] 63 mg/dL [facility] Comment on above: Eaxcvwsvoi=184-928 m g/dL & Higher Ysgd=746 mg/dL or greater Lipid Profileon 11-05-2024 CHOL:HDL 2.18 Normal [facility] Comment on above: Order Comment: 307.2 Performed By: #### L 500.4100, L506.1001 ####[facility] [address] [place], [place], [id number] Cholesterol [Mass/Vol] 140 mg/dL Normal <=200 [facility] Comment on above: Order Comment: 307.2 Result Comment: Chol esterol level, Desirable <200 mg/dLBorderline high cholesterol 200-239 mg/dLHigh cholesterol >=240 mg/dLRecommendations of the NCEP Adult Treatment Panel for thefollowing risk-cutoff thresholds for the [place] Americanpulation. Performed By: #### L 500.4100, L506.1001 ####[facility] [address] [place], [address] Cholesterol in HDL [Mass/Vol] 64 mg/dL Normal [facility] Comment on above: Order Comment: 307.2 Result Comment: Yasmin onal Cholesterol Education Program (NCEP) guidelines:<40 mg/dL: Low HDL-cholesterol (major risk factor for CHD)>= 60 mg/dL: High HDL-cholesterol (negative risk factor forCHD)HDL-cholesterol is affected by a number of factors, e.g.smoking, exercise, hormones, sex and age. Performed By: #### L 500.4100, L506.1001 ####[facility] [address] [place], [address] Cholesterol in LDL [Mass/Vol] 63 mg/dL Normal [facility] Comment on above: Order Comment: 307.2 Result Comment: Bord plldyw=905-138 mg/dL Higher Pkdc=724 mg/dL or greater Performed By: #### L 500.4100, L506.1001 ####[facility] [address] [place], [address] Cholesterol in VLDL [Mass/Vol] 13 mg/dL Normal 5-40 [facility] Comment on above: Order Comment: 307.2 Performed By: #### L 500.4100, L506.1001 ####[facility] [address] [place], [address] Triglyceride [Mass/Vol] 63 mg/dL Normal [facility] Comment on above: Order Comment: 307.2 Result Comment: The drugs N-Acetylcysteine and Metamizole may falselydepress this assay.Normal range: <150 mg/dLBorderline High: 150-199 mg/dLHigh: 200-499 mg/dLVery High: >500 mg/dL Performed By: #### L 500.4100, L506.1001 ####[facility] [address] [place], [address] Screening total cholesterol/ high density lipoprotein (HDL) cholesterol ratioOrdered By: Carla Crane on 11-05-2024 Cholesterol.total/Choles terol in HDL [Mass ratio] 2.18 {ratio} [facility] Serum or plasma cholesterol in HDL measurement (mass/volume)Ordered By: Carla Crane on 11-05-2024 Cholesterol in HDL [Mass/Vol] 64 mg/dL >40 [facility] Comment on above: National Cholesterol Education Program (NCEP) guidelines:<40 mg/dL: Low HDL-cholesterol (major risk factor for CHD)>= 60 mg/dL: High HDL-cholesterol (negative risk factor for CHD)HDL-cholesterol is affected by a number of factors, e.g. smoking, exercise, hormones, sex and age. Serum or plasma cholesterol measurement (mass/volume)Ordered By: Carla Crane on 11-05-2024 Cholesterol [Mass/Vol] 140 mg/dL <201 [facility] Comment on above: Cholesterol level, D esirable <200 mg/dLBorderline high cholesterol 200-239 mg/dLHigh cholesterol >=240 mg/dLRecommendations of the NCEP Adult Treatment Panel for the following risk-cutoff thresholds for the [place] population. Triglycerides measurementOrd ered By: Carla Crane on 11-05-2024 Triglyceride [Mass/Vol] 63 mg/dL <199 [facility] Comment on above: The drugs N-Acetylcy steine and Metamizole may falsely depress this assay. Normal range: <150 mg/dLBorderline High: 150-199 mg/dLHigh: 200-499 mg/dLVery High: >500 mg/dL Vitamin D,25 Hydroxyon 11-05 Vitamin D 25-OH 51.2 ng/mL Normal 30-100 [facility] Comment on above: Order Comment: 307.2 Result Comment: Teri min D StatusDeficiency: <20 ng/mL (50nmol/L)Insufficiency: 20-30 ng/mL (50-75 nmol/L)Sufficiency: 30-100 ng/mL (75-250 nmol/L)Toxicity: >100 ng/mL (>250 nmol/L) Performed By: #### L 500.0960, L506.1001 ####[facility] [address] [place], [address] Lipid Profileon 11-04-2024 CHOL Normal <=200 [facility] Comment on above: Order Comment: 307-2 Result Comment: MICHOACANO ENT REFUSED-NOTFIED NURSE Performed By: #### L 500.4100 ####[facility] [address] [place], [address] CHOL:HDL Normal [facility] Comment on above: Order Comment: 307-2 Result Comment: MICHOACANO ENT REFUSED-NOTFIED NURSE Performed By: #### L 500.4100 ####[facility] [address] [place], [address] CLDL Normal [facility] Comment on above: Order Comment: 307-2 Result Comment: MICHOACANO ENT REFUSED-NOTFIED NURSE Performed By: #### L 500.4100 ####[facility] [address] [place], [address] HDL Normal [facility] Comment on above: Order Comment: 307-2 Result Comment: MICHOACANO ENT REFUSED-NOTFIED NURSE Performed By: #### L 500.4100 ####[facility] [address] [place], [address] TRIG Normal [facility] Comment on above: Order Comment: 307-2 Result Comment: MICHOACANO ENT REFUSED-NOTFIED NURSE Performed By: #### L 500.4100 ####[facility] [address] [place], [address] VLDL Normal 5-40 [facility] Comment on above: Order Comment: 307-2 Result Comment: MICHOACANO ENT REFUSED-NOTFIED NURSE Performed By: #### L 500.4100 ####[facility] [address] [place], [address] Carbamazepine (Tegretol)on 0 10-16-2024 CARBAMAZEPINE 7.1 ug/mL Normal 4.0-12.0 [facility] Comment on above: Order Comment: 300 Performed By: #### L 501.7900 ####[facility] [address] [place], [address] Serum or plasma carbamazepin e level (mass/volume)Ordered By: Carla Crane on 10-16-2024 carBAMazepine [Mass/Vol] 7.1 ug/mL 4.0-12.0 [facility] Urine Cultureon 09-08-2024 URC Normal [facility] Comment on above: Performed By: #### M 100.2200, L400.0001 ####[facility] [address] [place], [address] Anion gap in Serum or Plasma Ordered By: Celia Toribio on 09-02-2024 Anion gap [Moles/Vol] 11 mmol/L 5-15 [facility] BUN/creatinine ratioOrdered By: Celia Toribio on 09-02-2024 Urea nitrogen/Creatinine [Mass ratio] 27.0 mg/mg High 10-20 [facility] Basic Metabolic Profile (BMP )on 09-02-2024 BUN/CRE 27.0 RATIO High [facility] Comment on above: Performed By: #### L 500.2500, L100.0100 ####[facility] [address] [place], [address] Calcium [Mass/Vol] 9.2 mg/dL Normal 7.6-11.0 [facility] Comment on above: Performed By: #### L 500.2500, L100.0100 ####[facility] [address] [place], [address] Chloride [Moles/Vol] 106 mmol/L Normal 98-108 [facility] Comment on above: Performed By: #### L 500.2500, L100.0100 ####[facility] [address] [place], [address] CO2 [Moles/Vol] 20.8 mmol/L Low 21.0-32.0 [facility] Comment on above: Performed By: #### L 500.2500, L100.0100 ####[facility] [address] [place], [address] Creatinine [Mass/Vol] 1.22 mg/dL High 0.70-1.20 [facility] Comment on above: Performed By: #### L 500.2500, L100.0100 ####[facility] [address] [place], [address] ECRCL 50.54 ml/min Normal 50-250 [facility] Comment on above: Performed By: #### L 500.2500, L100.0100 ####[facility] [address] [place], [address] GAP 11 Normal 5-15 [facility] Comment on above: Performed By: #### L 500.2500, L100.0100 ####[facility] [address] [place], [address] GFR/1.73 sq M.predicted among non-blacks MDRD (S/P/Bld) [Vol rate/Area] 62 mL/min/{1.73_m2} Normal >60 [facility] Comment on above: Result Comment: mL/m in/1.73m2 CKD-EPI Creatinine Equation (2020) Performed By: #### L 500.2500, L100.0100 ####[facility] [address] [place], [address] Glucose [Mass/Vol] 99 mg/dL Normal 70-99 [facility] Comment on above: Performed By: #### L 500.2500, L100.0100 ####[facility] [address] [place], [address] Potassium [Moles/Vol] 4.0 mmol/L Normal 3.3-5.1 [facility] Comment on above: Performed By: #### L 500.2500, L100.0100 ####[facility] [address] [place], [address] Sodium [Moles/Vol] 138 mmol/L Normal 133-145 [facility] Comment on above: Performed By: #### L 500.2500, L100.0100 ####[facility] [address] [place], [address] Urea nitrogen [Mass/Vol] 33 mg/dL High 4-19 [facility] Comment on above: Performed By: #### L 500.2500, L100.0100 ####[facility] [address] [place], [address] CBC W/Diff, Automatedon 08-17 Absolute Neut Normal 2.0-7.7 [facility] Comment on above: Result Comment: Canc elled via OM: MD Ordered Performed By: #### L 500.2500, L100.0100 ####[facility] [address] [place], [address] HCT Normal 40-54 [facility] Comment on above: Result Comment: Canc elled via OM: MD Ordered Performed By: #### L 500.2500, L100.0100 ####[facility] [address] [place], [address] HGB Normal 13.0-16.5 [facility] Comment on above: Result Comment: Canc elled via OM: MD Ordered Performed By: #### L 500.2500, L100.0100 ####[facility] [address] [place], [address] MCH Normal 27.0-32.0 [facility] Comment on above: Result Comment: Canc elled via OM: MD Ordered Performed By: #### L 500.2500, L100.0100 ####[facility] [address] [place], [address] MCHC Normal 32-36 [facility] Comment on above: Result Comment: Canc elled via OM: MD Ordered Performed By: #### L 500.2500, L100.0100 ####[facility] [address] [place], [address] MCV Normal 80-94 [facility] Comment on above: Result Comment: Canc elled via OM: MD Ordered Performed By: #### L 500.2500, L100.0100 ####[facility] [address] [place], [address] NEUT% Normal 47-70 [facility] Comment on above: Result Comment: Canc elled via OM: MD Ordered Performed By: #### L 500.2500, L100.0100 ####[facility] [address] [place], [address] PLT Normal 150-450 [facility] Comment on above: Result Comment: Canc elled via OM: MD Ordered Performed By: #### L 500.2500, L100.0100 ####[facility] [address] [place], [address] RBC Normal 4.6-6.2 [facility] Comment on above: Result Comment: Canc elled via OM: MD Ordered Performed By: #### L 500.2500, L100.0100 ####[facility] [address] [place], [address] RDW CV Normal 11.6-14.6 [facility] Comment on above: Result Comment: Canc elled via OM: MD Ordered Performed By: #### L 500.2500, L100.0100 ####[facility] [address] [place], [address] RDW SD Normal 35.1-43.9 [facility] Comment on above: Result Comment: Canc elled via OM: MD Ordered Performed By: #### L 500.2500, L100.0100 ####[facility] [address] [place], [address] WBC Normal 4.4-11.0 [facility] Comment on above: Result Comment: Bethanie luna via OM: Ordered Performed By: #### L 500.2500, L100.0100 ####[facility] [address] [place], [address] Carbon dioxide, total [Moles /volume] in Central venous bloodOrdered By: Celia Toribio on 09-02-2024 CO2 [Moles/Vol] 20.8 mmol/L Low 21.0-32.0 [facility] Chloride assayOrdered By: Yariel Toribio on 09-02-2024 Chloride [Moles/Vol] 106 mmol/L 98-108 [facility] Estimation of creatinine zeke aranceOrdered By: Celia Toribio on 09-02-2024 Estimated Creatinine Clearance Calc 50.54 ml/min 50-250 [facility] GFR/1.73 sq M.predicted gisella g non-blacks MDRD (S/P/Bld) [Vol rate/Area]Ordered By: Celia Toribio on 09-02-2024 Estimated GFR (MDRD) Non-Af Amer 62 >60 [facility] Comment on above: mL/min/1.73m2 CKD-EP I Creatinine Equation (2020) Glomerular filtration rate ( GFR) estimation/1.73 sq m using serum, plasma, or whole bOrdered By: Celia Toribio on 09-02-2024 GFR/1.73 sq M.predicted among non-blacks MDRD (S/P/Bld) [Vol rate/Area] 62 mL/min/{1.73_m2} >60 [facility] Comment on above: mL/min/1.73m2 CKD-EP I Creatinine Equation (2020) Potassium (Unsp spec) [Mass/ Vol]Ordered By: Celia Toribio on 09-02-2024 Potassium [Moles/Vol] 4.0 mmol/L 3.3-5.1 [facility] Potassium measurement (mass/ volume)Ordered By: Celia Toribio on 09-02-2024 Potassium (Unsp spec) [Mass/Vol] 4.0 mmol/L 3.3-5.1 [facility] Serum creatinine measurement (mass/volume)Ordered By: Celia Toribio on 09-02-2024 Creatinine [Mass/Vol] 1.22 mg/dL High 0.70-1.20 [facility] Serum glucose measurement (m ass/volume)Ordered By: Celia Toribio on 09-02-2024 Glucose [Mass/Vol] 99 mg/dL 70-99 [facility] Serum or plasma calcium luis urement (mass/volume)Ordered By: Celia Toribio on 09-02-2024 Calcium [Mass/Vol] 9.2 mg/dL 7.6-11.0 [facility] Serum or plasma urea nitroge n measurement (mass/volume)Ordered By: Celia Toribio on 09-02-2024 Urea nitrogen [Mass/Vol] 33 mg/dL High 4-19 [facility] Sodium levelOrdered By: Rigoberto Toribio on 09-02-2024 Sodium [Moles/Vol] 138 mmol/L 133-145 [facility] Absolute lymphocyte countOrd ered By: Celia Toribio on 09-01-2024 Lymphocytes Auto (Unsp spec) [#/Vol] 1.45 10*3/uL 0.83-4.51 [facility] Absolute neutrophil countOrd ered By: Celia Toribio on 09-01-2024 Neutrophils (Bld) [#/Vol] 4.9 10*3/uL 2.0-7.7 [facility] Automated lymphocyte count a s percentage of total leukocytesOrdered By: Celia Toribio on 09-01-2024 Lymphocytes/100 WBC Auto (Unsp spec) 20.9 % 19-41 [facility] Basic Metabolic Profile (BMP )on 09-01-2024 BUN/CRE 26.8 RATIO High 10-20 [facility] Comment on above: Order Comment: PT RE FUSED REPORTED TO SEYMOUR STORY. SEYMOUR STORY SAID SHE WOULDTRY TO DRAW. Performed By: #### L 500.3160 ####[facility] [id number] [place], [address] Calcium [Mass/Vol] 9.6 mg/dL Normal 7.6-11.0 [facility] Comment on above: Order Comment: PT RE FUSED REPORTED TO SEYMOUR JEZ. RN JEZ SAID SHE WOULDTRY TO DRAW. Performed By: #### L 500.2500 ####[facility] [id number] [place], [address] Chloride [Moles/Vol] 102 mmol/L Normal 98-108 [facility] Comment on above: Order Comment: PT RE FUSED REPORTED TO RN JEZ. RN JEZ SAID SHE WOULDTRY TO DRAW. Performed By: #### L 500.2500 ####[facility] [id number] [facility] [address] CO2 [Moles/Vol] 21.9 mmol/L Normal 21.0-32.0 [facility] Comment on above: Order Comment: PT RE FUSED REPORTED TO RN JEZ. RN JEZ SAID SHE WOULDTRY TO DRAW. Performed By: #### L 500.2500 ####[facility] [address] [facility] [address] Creatinine [Mass/Vol] 1.44 mg/dL High 0.70-1.20 [facility] Comment on above: Order Comment: PT RE FUSED REPORTED TO RN JEZ. RN JEZ SAID SHE WOULDTRY TO DRAW. Performed By: #### L 500.2500 ####[facility] [address] [facility] [address] ECRCL 42.38 ml/min Low 50-250 [facility] Comment on above: Order Comment: PT RE FUSED REPORTED TO RN JEZ. RN JEZ SAID SHE WOULDTRY TO DRAW. Performed By: #### L 500.2500 ####[facility] [address] [facility] [address] GAP 13 Normal 5-15 [facility] Comment on above: Order Comment: PT RE FUSED REPORTED TO RN JEZ. RN JEZ SAID SHE WOULDTRY TO DRAW. Performed By: #### L 500.2500 ####[facility] [address] [facility] [address] GFR/1.73 sq M.predicted among non-blacks MDRD (S/P/Bld) [Vol rate/Area] 51 mL/min/{1.73_m2} Low >60 [facility] Comment on above: Order Comment: PT RE FUSED REPORTED TO [facility] [employer]. RN JEZ SAID SHE WOULDTRY TO DRAW. Result Comment: mL/m in/1.73m2 CKD-EPI Creatinine Equation (2020) Performed By: #### L 500.2500 ####[facility] [address] [facility] [address] Glucose [Mass/Vol] 118 mg/dL High 70-99 [facility] Comment on above: Order Comment: PT RE FUSED REPORTED TO [facility] [employer]. RN JEZ SAID SHE WOULDTRY TO DRAW. Performed By: #### L 500.2500 ####[facility] [address] [facility] [address] Potassium [Moles/Vol] 4.1 mmol/L Normal 3.3-5.1 [facility] Comment on above: Order Comment: PT RE FUSED REPORTED TO [facility] [employer]. RN JEZ SAID SHE WOULDTRY TO DRAW. Performed By: #### L 500.2500 ####[facility] [address] [facility] [address] Sodium [Moles/Vol] 137 mmol/L Normal 133-145 [facility] Comment on above: Order Comment: PT RE FUSED REPORTED TO [facility] [employer]. RN JEZ SAID SHE WOULDTRY TO DRAW. Performed By: #### L 500.2500 ####[facility] [address] [facility] [address] Urea nitrogen [Mass/Vol] 39 mg/dL High 4-19 [facility] Comment on above: Order Comment: PT RE FUSED REPORTED TO [facility] [employer]. [facility] [employer] SAID SHE WOULDTRY TO DRAW. Performed By: #### L 500.2500 ####[facility] [address] [place], [address] BUN/CRE 30.2 RATIO High 10-20 [facility] Comment on above: Performed By: #### L 100.0100, L500.2500 ####[facility] [address] [place], [address] Calcium [Mass/Vol] 9.7 mg/dL Normal 7.6-11.0 [facility] Comment on above: Performed By: #### L 100.0100, L500.2500 ####[facility] [address] [place], [address] Chloride [Moles/Vol] 103 mmol/L Normal 98-108 [facility] Comment on above: Performed By: #### L 100.0100, L500.2500 ####[facility] [address] [place], [address] CO2 [Moles/Vol] 19.4 mmol/L Low 21.0-32.0 [facility] Comment on above: Performed By: #### L 100.0100, L500.2500 ####[facility] [address] [place], [address] Creatinine [Mass/Vol] 1.33 mg/dL High 0.70-1.20 [facility] Comment on above: Performed By: #### L 100.0100, L500.2500 ####[facility] [address] [place], [address] ECRCL 45.89 ml/min Low 50-250 [facility] Comment on above: Performed By: #### L 100.0100, L500.2500 ####[facility] [address] [place], [address] GAP 16 High 5-15 [facility] Comment on above: Performed By: #### L 100.0100, L500.2500 ####[facility] [address] [place], [address] GFR/1.73 sq M.predicted among non-blacks MDRD (S/P/Bld) [Vol rate/Area] 56 mL/min/{1.73_m2} Low >60 [facility] Comment on above: Result Comment: mL/m in/1.73m2 CKD-EPI Creatinine Equation (2020) Performed By: #### L 100.0100, L500.2500 ####[facility] [address] [place], [address] Glucose [Mass/Vol] 83 mg/dL Normal 70-99 [facility] Comment on above: Performed By: #### L 100.0100, L500.2500 ####[facility] [address] [place], [address] Potassium [Moles/Vol] 3.8 mmol/L Normal 3.3-5.1 [facility] Comment on above: Performed By: #### L 100.0100, L500.2500 ####[facility] [address] [place], [address] Sodium [Moles/Vol] 139 mmol/L Normal 133-145 [facility] Comment on above: Performed By: #### L 100.0100, L500.2500 ####[facility] [address] [place], [address] Urea nitrogen [Mass/Vol] 40 mg/dL High 4-19 [facility] Comment on above: Performed By: #### L 100.0100, L500.2500 ####[facility] [address] [place], [address] Basophil percentageOrdered B y: Celia Toribio on 09-01-2024 Basophils/100 WBC (Bld) 1.0 % 0-1 [facility] CBC W/Diff, Automatedon 08-17 Absolute Lymph 1.45 X10 3/uL Normal 0.83-4.51 [facility] Comment on above: Performed By: #### L 100.0100 ####[facility] [address] [place], [address] Absolute Neut 4.9 X10 3/uL Normal 2.0-7.7 [facility] Comment on above: Performed By: #### L 100.0100 ####[facility] [address] [place], [address] Basophils/100 WBC (Bld) 1.0 % Normal 0-1 [facility] Comment on above: Performed By: #### L 100.0100 ####[facility] [address] [place], [address] Eosinophils/100 WBC (Bld) 0.4 % Normal 0-5 [facility] Comment on above: Performed By: #### L 100.0100 ####[facility] [address] [place], [address] Erythrocyte distribution width (RBC) [Ratio] 13.3 % Normal 11.6-14.6 [facility] Comment on above: Performed By: #### L 100.0100 ####[facility] [address] [place], [address] Hematocrit (Bld) [Volume fraction] 43.2 % Normal 40-54 [facility] Comment on above: Performed By: #### L 100.0100 ####[facility] [address] [place], [address] Hemoglobin (Bld) [Mass/Vol] 14.1 g/dL Normal 13.0-16.5 [facility] Comment on above: Performed By: #### L 100.0100 ####[facility] [address] [place], [address] IG% 0.600 Normal 0.0-0.9 [facility] Comment on above: Result Comment: IG% - Immature Granulocytes (promyelocytes, myelocytes andmetamyelocytes) > 1% indicates that a LEFT SHIFT is Present. Performed By: #### L 100.0100 ####[facility] [address] [place], [address] Lymphocytes/100 WBC (Bld) 20.9 % Normal 19-41 [facility] Comment on above: Performed By: #### L 100.0100 ####[facility] [address] [place], [address] MCH (RBC) [Entitic mass] 31.4 pg Normal 27.0-32.0 [facility] Comment on above: Performed By: #### L 100.0100 ####[facility] [address] [place], [address] MCHC (RBC) [Mass/Vol] 32.6 g/dL Normal 32-36 [facility] Comment on above: Performed By: #### L 100.0100 ####[facility] [address] [place], [address] MCV (RBC) [Entitic vol] 96.2 fL High 80-94 [facility] Comment on above: Performed By: #### L 100.0100 ####[facility] [address] [place], [address] Monocytes/100 WBC (Bld) 6.2 % Normal 0-10 [facility] Comment on above: Performed By: #### L 100.0100 ####[facility] [address] [place], [address] Neutrophils/100 WBC (Bld) 70.9 % High 47-70 [facility] Comment on above: Performed By: #### L 100.0100 ####[facility] [address] [place], [address] Nucleated RBC (Bld) [#/Vol] 0 10*3/uL Normal 0-5 [facility] Comment on above: Performed By: #### L 100.0100 ####[facility] [address] [place], [address] Platelet mean volume (Bld) [Entitic vol] 9.5 fL Normal 6.2-12.0 [facility] Comment on above: Performed By: #### L 100.0100 ####[facility] [address] [place], [address] Platelets (Bld) [#/Vol] 367 10*3/uL Normal 150-450 [facility] Comment on above: Performed By: #### L 100.0100 ####[facility] [address] [place], [address] RBC (Bld) [#/Vol] 4.49 10*6/uL Low 4.6-6.2 [facility] Comment on above: Performed By: #### L 100.0100 ####[facility] [address] [place], [address] RDW SD 47.4 fl High 35.1-43.9 [facility] Comment on above: Performed By: #### L 100.0100 ####[facility] [address] [place], [address] WBC (Bld) [#/Vol] 6.9 10*3/uL Normal 4.4-11.0 [facility] Comment on above: Performed By: #### L 100.0100 ####[facility] [address] [place], [address] Absolute Neut Normal 2.0-7.7 [facility] Comment on above: Result Comment: Bethanie luna via TINO: Ordered Performed By: #### L 100.0100, L500.2500 ####[facility] [address] [place], [address] HCT Normal 40-54 [facility] Comment on above: Result Comment: Canc elled via OM: MD Ordered Performed By: #### L 100.0100, L500.2500 ####[facility] [address] [place], [address] HGB Normal 13.0-16.5 [facility] Comment on above: Result Comment: Canc elled via OM: MD Ordered Performed By: #### L 100.0100, L500.2500 ####[facility] [address] [place], [address] MCH Normal 27.0-32.0 [facility] Comment on above: Result Comment: Canc elled via OM: MD Ordered Performed By: #### L 100.0100, L500.2500 ####[facility] [address] [place], [address] MCHC Normal 32-36 [facility] Comment on above: Result Comment: Canc elled via OM: MD Ordered Performed By: #### L 100.0100, L500.2500 ####[facility] [address] [place], [address] MCV Normal 80-94 [facility] Comment on above: Result Comment: Canc elled via OM: MD Ordered Performed By: #### L 100.0100, L500.2500 ####[facility] [address] [place], [address] NEUT% Normal 47-70 [facility] Comment on above: Result Comment: Canc elled via OM: MD Ordered Performed By: #### L 100.0100, L500.2500 ####[facility] [address] [place], [address] PLT Normal 150-450 [facility] Comment on above: Result Comment: Canc elled via OM: MD Ordered Performed By: #### L 100.0100, L500.2500 ####[facility] [address] [place], [address] RBC Normal 4.6-6.2 [facility] Comment on above: Result Comment: Canc elled via OM: MD Ordered Performed By: #### L 100.0100, L500.2500 ####[facility] [address] [place], [address] RDW CV Normal 11.6-14.6 [facility] Comment on above: Result Comment: Canc elled via OM: MD Ordered Performed By: #### L 100.0100, L500.2500 ####[facility] [address] [place], [address] RDW SD Normal 35.1-43.9 [facility] Comment on above: Result Comment: Canc elled via OM: MD Ordered Performed By: #### L 100.0100, L500.2500 ####[facility] [address] [place], [address] WBC Normal 4.4-11.0 [facility] Comment on above: Result Comment: Canc elled via OM: MD Ordered Performed By: #### L 100.0100, L500.2500 ####[facility] [address] [place], [address] Eosinophil percentageOrdered By: Celia Toribio on 09-01-2024 Eosinophils/100 WBC (Bld) 0.4 % 0-5 [facility] Erythrocyte distribution wid th ratioOrdered By: Celia Toribio on 09-01-2024 Erythrocyte distribution width (RBC) [Ratio] 13.3 % 11.6-14.6 [facility] Erythrocyte distribution wid th standard deviationOrdered By: Celia Toribio on 09-01-2024 Erythrocyte distribution width (RBC) [Entitic vol] 47.4 fL High 35.1-43.9 [facility] Erythrocyte distribution width (RBC) [Ratio] 47.4 fl High 35.1-43.9 [facility] Hematocrit Auto (Bld) [Volum e fraction]Ordered By: Celia Toribio on 09-01-2024 Hematocrit (Bld) [Volume fraction] 43.2 % 40-54 [facility] Hemoglobin measurementOrdere d By: Celia Toribio on 09-01-2024 Hemoglobin (Bld) [Mass/Vol] 14.1 g/dL 13.0-16.5 [facility] Immature granulocytes/100 WB C Auto (Bld)Ordered By: Celia Toribio on 09-01-2024 Immature granulocytes/100 WBC (Bld) 0.600 % 0.0-0.9 [facility] Comment on above: IG% - Immature Granu locytes (promyelocytes, myelocytes and metamyelocytes) > 1% indicates that a LEFT SHIFT is Present. Lymphocytes Auto (Unsp spec) [#/Vol]Ordered By: Celia Toribio on 09-01-2024 Lymphocytes (Bld) [#/Vol] 1.45 10*3/uL 0.83-4.51 [facility] Lymphocytes/100 WBC Auto (Un sp spec)Ordered By: Celia Toribio on 09-01-2024 Lymphocytes/100 WBC (Bld) 20.9 % 19-41 [facility] MCV (mean corpuscular volume ) determinationOrdered By: Celia Toribio on 09-01-2024 MCV (RBC) [Entitic vol] 96.2 fL High 80-94 [facility] Mean corpuscular hemoglobin (MCH) determinationOrdered By: Celia Toribio on 09-01-2024 MCH (RBC) [Entitic mass] 31.4 pg 27.0-32.0 [facility] Mean corpuscular hemoglobin concentration (MCHC) determinationOrdered By: Celia Toribio on 09-01-2024 MCHC (RBC) [Mass/Vol] 32.6 g/dL 32-36 [facility] Mean platelet volume determi nationOrdered By: Celia Toribio on 09-01-2024 Platelet mean volume (Bld) [Entitic vol] 9.5 fL 6.2-12.0 [facility] Monocyte percentageOrdered B y: Celia Toribio on 09-01-2024 Monocytes/100 WBC (Bld) 6.2 % 0-10 [facility] Neutrophil percentageOrdered By: Celia Toribio on 09-01-2024 Neutrophils/100 WBC (Bld) 70.9 % High 47-70 [facility] Nucleated red blood cell per centageOrdered By: Celia Toribio on 09-01-2024 Nucleated RBC/100 WBC (Bld) [Ratio] 0 % 0-5 [facility] Platelet countOrdered By: Yariel Toribio on 09-01-2024 Platelets (Bld) [#/Vol] 367 10*3/uL 150-450 [facility] RBC Auto (Bld) [#/Vol]Ordere d By: Celia Toribio on 09-01-2024 RBC (Bld) [#/Vol] 4.49 10*6/uL Low 4.6-6.2 [facility] White blood cell (WBC) count Ordered By: Celia Toribio on 09-01-2024 WBC (Bld) [#/Vol] 6.9 10*3/uL 4.4-11.0 [facility] Basic Metabolic Profile (BMP )on 08-31-2024 BUN/CRE 25.7 RATIO High 10-20 [facility] Comment on above: Performed By: #### L 500.2500, L100.0100 ####[facility] [address] [place], [address] Calcium [Mass/Vol] 10.0 mg/dL Normal 7.6-11.0 [facility] Comment on above: Performed By: #### L 500.2500, L100.0100 ####[facility] [address] [place], [address] Chloride [Moles/Vol] 102 mmol/L Normal 98-108 [facility] Comment on above: Performed By: #### L 500.2500, L100.0100 ####[facility] [address] [place], [address] CO2 [Moles/Vol] 21.5 mmol/L Normal 21.0-32.0 [facility] Comment on above: Performed By: #### L 500.2500, L100.0100 ####[facility] [address] [place], [address] Creatinine [Mass/Vol] 1.16 mg/dL Normal 0.70-1.20 [facility] Comment on above: Performed By: #### L 500.2500, L100.0100 ####[facility] [address] [place], [address] ECRCL 52.61 ml/min Normal 50-250 [facility] Comment on above: Performed By: #### L 500.2500, L100.0100 ####[facility] [address] [place], [address] GAP 15 Normal 5-15 [facility] Comment on above: Performed By: #### L 500.2500, L100.0100 ####[facility] [address] [place], [address] GFR/1.73 sq M.predicted among non-blacks MDRD (S/P/Bld) [Vol rate/Area] 66 mL/min/{1.73_m2} Normal >60 [facility] Comment on above: Result Comment: mL/m in/1.73m2 CKD-EPI Creatinine Equation (2020) Performed By: #### L 500.2500, L100.0100 ####[facility] [address] [place], [address] Glucose [Mass/Vol] 93 mg/dL Normal 70-99 [facility] Comment on above: Performed By: #### L 500.2500, L100.0100 ####[facility] [address] [place], [address] Potassium [Moles/Vol] 3.8 mmol/L Normal 3.3-5.1 [facility] Comment on above: Performed By: #### L 500.2500, L100.0100 ####[facility] [address] [place], [address] Sodium [Moles/Vol] 138 mmol/L Normal 133-145 [facility] Comment on above: Performed By: #### L 500.2500, L100.0100 ####[facility] [address] [place], [address] Urea nitrogen [Mass/Vol] 30 mg/dL High 4-19 [facility] Comment on above: Performed By: #### L 500.2500, L100.0100 ####[facility] [address] [place], [address] CBC W/Diff, Automatedon 08-17 Absolute Neut Normal 2.0-7.7 [facility] Comment on above: Result Comment: Canc elled via OM: MD Ordered Performed By: #### L 500.2500, L100.0100 ####[facility] [address] [place], [address] HCT Normal 40-54 [facility] Comment on above: Result Comment: Canc elled via OM: MD Ordered Performed By: #### L 500.2500, L100.0100 ####[facility] [address] [place], [address] HGB Normal 13.0-16.5 [facility] Comment on above: Result Comment: Canc elled via OM: MD Ordered Performed By: #### L 500.2500, L100.0100 ####[facility] [address] [place], [address] MCH Normal 27.0-32.0 [facility] Comment on above: Result Comment: Canc elled via OM: MD Ordered Performed By: #### L 500.2500, L100.0100 ####[facility] [address] [place], [address] MCHC Normal 32-36 [facility] Comment on above: Result Comment: Canc elled via OM: MD Ordered Performed By: #### L 500.2500, L100.0100 ####[facility] [address] [place], [address] MCV Normal 80-94 [facility] Comment on above: Result Comment: Canc elled via OM: MD Ordered Performed By: #### L 500.2500, L100.0100 ####[facility] [address] [place], [address] NEUT% Normal 47-70 [facility] Comment on above: Result Comment: Canc elled via OM: MD Ordered Performed By: #### L 500.2500, L100.0100 ####[facility] [address] [place], [address] PLT Normal 150-450 [facility] Comment on above: Result Comment: Canc elled via OM: MD Ordered Performed By: #### L 500.2500, L100.0100 ####[facility] [address] [place], [address] RBC Normal 4.6-6.2 [facility] Comment on above: Result Comment: Canc elled via OM: MD Ordered Performed By: #### L 500.2500, L100.0100 ####[facility] [address] [place], [address] RDW CV Normal 11.6-14.6 [facility] Comment on above: Result Comment: Canc elled via OM: MD Ordered Performed By: #### L 500.2500, L100.0100 ####[facility] [address] [place], [address] RDW SD Normal 35.1-43.9 [facility] Comment on above: Result Comment: Canc elled via OM: MD Ordered Performed By: #### L 500.2500, L100.0100 ####[facility] [address] [place], [address] WBC Normal 4.4-11.0 [facility] Comment on above: Result Comment: Canc elled via OM: MD Ordered Performed By: #### L 500.2500, L100.0100 ####[facility] [address] [place], [address] Basic Metabolic Profile (BMP )on 08-30-2024 BUN/CRE 21.4 RATIO High 10-20 [facility] Comment on above: Performed By: #### L 500.2500, L100.0100 ####[facility] [address] [place], [address] Calcium [Mass/Vol] 10.1 mg/dL Normal 7.6-11.0 [facility] Comment on above: Performed By: #### L 500.2500, L100.0100 ####[facility] [address] [place], [address] Chloride [Moles/Vol] 102 mmol/L Normal 98-108 [facility] Comment on above: Performed By: #### L 500.2500, L100.0100 ####[facility] [address] [place], [address] CO2 [Moles/Vol] 22.7 mmol/L Normal 21.0-32.0 [facility] Comment on above: Performed By: #### L 500.2500, L100.0100 ####[facility] [address] [place], [address] Creatinine [Mass/Vol] 1.21 mg/dL High 0.70-1.20 [facility] Comment on above: Performed By: #### L 500.2500, L100.0100 ####[facility] [address] [place], [address] ECRCL 51.03 ml/min Normal 50-250 [facility] Comment on above: Performed By: #### L 500.2500, L100.0100 ####[facility] [address] [place], [address] GAP 13 Normal 5-15 [facility] Comment on above: Performed By: #### L 500.2500, L100.0100 ####[facility] [address] [place], [address] GFR/1.73 sq M.predicted among non-blacks MDRD (S/P/Bld) [Vol rate/Area] 62 mL/min/{1.73_m2} Normal >60 [facility] Comment on above: Result Comment: mL/m in/1.73m2 CKD-EPI Creatinine Equation (2020) Performed By: #### L 500.2500, L100.0100 ####[facility] [address] [place], [address] Glucose [Mass/Vol] 94 mg/dL Normal 70-99 [facility] Comment on above: Performed By: #### L 500.2500, L100.0100 ####[facility] [address] [place], [address] Potassium [Moles/Vol] 4.2 mmol/L Normal 3.3-5.1 [facility] Comment on above: Performed By: #### L 500.2500, L100.0100 ####[facility] [address] [place], [address] Sodium [Moles/Vol] 138 mmol/L Normal 133-145 [facility] Comment on above: Performed By: #### L 500.2500, L100.0100 ####[facility] [address] [place], [address] Urea nitrogen [Mass/Vol] 26 mg/dL High 4-19 [facility] Comment on above: Performed By: #### L 500.2500, L100.0100 ####[facility] [address] [place], [address] CBC W/Diff, Automatedon 03- Absolute Lymph 1.00 X10 3/uL Normal 0.83-4.51 [facility] Comment on above: Performed By: #### L 500.2500, L100.0100 ####[facility] [address] [place], [address] Absolute Neut 3.7 X10 3/uL Normal 2.0-7.7 [facility] Comment on above: Performed By: #### L 500.2500, L100.0100 ####[facility] [address] [place], [address] Basophils/100 WBC (Bld) 1.6 % High 0-1 [facility] Comment on above: Performed By: #### L 500.2500, L100.0100 ####[facility] [address] [place], [address] Eosinophils/100 WBC (Bld) 7.8 % High 0-5 [facility] Comment on above: Performed By: #### L 500.2500, L100.0100 ####[facility] [address] [place], [address] Erythrocyte distribution width (RBC) [Ratio] 13.3 % Normal 11.6-14.6 [facility] Comment on above: Performed By: #### L 500.2500, L100.0100 ####[facility] [id number] [place], [address] Hematocrit (Bld) [Volume fraction] 41.8 % Normal 40-54 [facility] Comment on above: Performed By: #### L 500.2500, L100.0100 ####[facility] [id number] [place], [address] Hemoglobin (Bld) [Mass/Vol] 13.8 g/dL Normal 13.0-16.5 [facility] Comment on above: Performed By: #### L 500.2500, L100.0100 ####[facility] [id number] [place], [address] IG% 0.400 Normal 0.0-0.9 [facility] Comment on above: Result Comment: IG% - Immature Granulocytes (promyelocytes, myelocytes andmetamyelocytes) > 1% indicates that a LEFT SHIFT is Present. Performed By: #### L 500.2500, L100.0100 ####[facility] [id number] [place], [address] Lymphocytes/100 WBC (Bld) 17.8 % Low 19-41 [facility] Comment on above: Performed By: #### L 500.2500, L100.0100 ####[facility] [address] [place], [address] MCH (RBC) [Entitic mass] 31.9 pg Normal 27.0-32.0 [facility] Comment on above: Performed By: #### L 500.2500, L100.0100 ####[facility] [address] [place], [address] MCHC (RBC) [Mass/Vol] 33.0 g/dL Normal 32-36 [facility] Comment on above: Performed By: #### L 500.2500, L100.0100 ####[facility] [address] [place], [address] MCV (RBC) [Entitic vol] 96.5 fL High 80-94 [facility] Comment on above: Performed By: #### L 500.2500, L100.0100 ####[facility] [address] [place], [address] Monocytes/100 WBC (Bld) 7.6 % Normal 0-10 [facility] Comment on above: Performed By: #### L 500.2500, L100.0100 ####[facility] [address] [place], [address] Neutrophils/100 WBC (Bld) 64.8 % Normal 47-70 [facility] Comment on above: Performed By: #### L 500.2500, L100.0100 ####[facility] [address] [place], [address] Nucleated RBC (Bld) [#/Vol] 0 10*3/uL Normal 0-5 [facility] Comment on above: Performed By: #### L 500.2500, L100.0100 ####[facility] [address] [place], [address] Platelet mean volume (Bld) [Entitic vol] 9.7 fL Normal 6.2-12.0 [facility] Comment on above: Performed By: #### L 500.2500, L100.0100 ####[facility] [address] [place], [address] Platelets (Bld) [#/Vol] 309 10*3/uL Normal 150-450 [facility] Comment on above: Performed By: #### L 500.2500, L100.0100 ####[facility] [address] [place], [address] RBC (Bld) [#/Vol] 4.33 10*6/uL Low 4.6-6.2 [facility] Comment on above: Performed By: #### L 500.2500, L100.0100 ####[facility] [address] [place], [address] RDW SD 47.7 fl High 35.1-43.9 [facility] Comment on above: Performed By: #### L 500.2500, L100.0100 ####[facility] [address] [place], [address] WBC (Bld) [#/Vol] 5.6 10*3/uL Normal 4.4-11.0 [facility] Comment on above: Performed By: #### L 500.2500, L100.0100 ####[facility] [address] [place], [address] Consultation - Infectious Dx on 08-30-2024 Consultation - Infectious Dx Normal [facility] Basic Metabolic Profile (BMP )on 08-29-2024 BUN/CRE 24.6 RATIO High 10-20 [facility] Comment on above: Performed By: #### L 100.0100, L500.2500 ####[facility] [address] [place], [address] Calcium [Mass/Vol] 10.0 mg/dL Normal 7.6-11.0 [facility] Comment on above: Performed By: #### L 100.0100, L500.2500 ####[facility] [address] [place], [address] Chloride [Moles/Vol] 104 mmol/L Normal 98-108 [facility] Comment on above: Performed By: #### L 100.0100, L500.2500 ####[facility] [address] [place], [address] CO2 [Moles/Vol] 22.8 mmol/L Normal 21.0-32.0 [facility] Comment on above: Performed By: #### L 100.0100, L500.2500 ####[facility] [address] [place], [address] Creatinine [Mass/Vol] 1.21 mg/dL High 0.70-1.20 [facility] Comment on above: Performed By: #### L 100.0100, L500.2500 ####[facility] [address] [place], [address] ECRCL 51.03 ml/min Normal 50-250 [facility] Comment on above: Performed By: #### L 100.0100, L500.2500 ####[facility] [address] [place], [address] GAP 14 Normal 5-15 [facility] Comment on above: Performed By: #### L 100.0100, L500.2500 ####[facility] [address] [place], [address] GFR/1.73 sq M.predicted among non-blacks MDRD (S/P/Bld) [Vol rate/Area] 62 mL/min/{1.73_m2} Normal >60 [facility] Comment on above: Result Comment: mL/m in/1.73m2 CKD-EPI Creatinine Equation (2020) Performed By: #### L 100.0100, L500.2500 ####[facility] [address] [place], [address] Glucose [Mass/Vol] 91 mg/dL Normal 70-99 [facility] Comment on above: Performed By: #### L 100.0100, L500.2500 ####[facility] [address] [place], [address] Potassium [Moles/Vol] 4.1 mmol/L Normal 3.3-5.1 [facility] Comment on above: Performed By: #### L 100.0100, L500.2500 ####[facility] [address] [place], [address] Sodium [Moles/Vol] 141 mmol/L Normal 133-145 [facility] Comment on above: Performed By: #### L 100.0100, L500.2500 ####[facility] [address] [place], [address] Urea nitrogen [Mass/Vol] 30 mg/dL High 4-19 [facility] Comment on above: Performed By: #### L 100.0100, L500.2500 ####[facility] [address] [place], [address] CBC W/Diff, Automatedon - Absolute Lymph 1.17 X10 3/uL Normal 0.83-4.51 [facility] Comment on above: Performed By: #### L 100.0100, L500.2500 ####[facility] [address] [place], [address] Absolute Neut 3.1 X10 3/uL Normal 2.0-7.7 [facility] Comment on above: Performed By: #### L 100.0100, L500.2500 ####[facility] [address] [place], [address] Basophils/100 WBC (Bld) 1.3 % High 0-1 [facility] Comment on above: Performed By: #### L 100.0100, L500.2500 ####[facility] [address] [place], [address] Eosinophils/100 WBC (Bld) 8.2 % High 0-5 [facility] Comment on above: Performed By: #### L 100.0100, L500.2500 ####[facility] [address] [place], [address] Erythrocyte distribution width (RBC) [Ratio] 13.5 % Normal 11.6-14.6 [facility] Comment on above: Performed By: #### L 100.0100, L500.2500 ####[facility] [address] [place], [address] Hematocrit (Bld) [Volume fraction] 39.2 % Low 40-54 [facility] Comment on above: Performed By: #### L 100.0100, L500.2500 ####[facility] [address] [place], [address] Hemoglobin (Bld) [Mass/Vol] 12.8 g/dL Low 13.0-16.5 [facility] Comment on above: Performed By: #### L 100.0100, L500.2500 ####[facility] [address] [place], [address] IG% 0.400 Normal 0.0-0.9 [facility] Comment on above: Result Comment: IG% - Immature Granulocytes (promyelocytes, myelocytes andmetamyelocytes) > 1% indicates that a LEFT SHIFT is Present. Performed By: #### L 100.0100, L500.2500 ####[facility] [address] [place], [address] Lymphocytes/100 WBC (Bld) 22.3 % Normal 19-41 [facility] Comment on above: Performed By: #### L 100.0100, L500.2500 ####[facility] [address] [place], [address] MCH (RBC) [Entitic mass] 31.4 pg Normal 27.0-32.0 [facility] Comment on above: Performed By: #### L 100.0100, L500.2500 ####[facility] [address] [place], [address] MCHC (RBC) [Mass/Vol] 32.7 g/dL Normal 32-36 [facility] Comment on above: Performed By: #### L 100.0100, L500.2500 ####[facility] [address] [place], [address] MCV (RBC) [Entitic vol] 96.1 fL High 80-94 [facility] Comment on above: Performed By: #### L 100.0100, L500.2500 ####[facility] [address] [place], [address] Monocytes/100 WBC (Bld) 8.0 % Normal 0-10 [facility] Comment on above: Performed By: #### L 100.0100, L500.2500 ####[facility] [address] [place], [address] Neutrophils/100 WBC (Bld) 59.8 % Normal 47-70 [facility] Comment on above: Performed By: #### L 100.0100, L500.2500 ####[facility] [address] [place], [address] Nucleated RBC (Bld) [#/Vol] 0 10*3/uL Normal 0-5 [facility] Comment on above: Performed By: #### L 100.0100, L500.2500 ####[facility] [address] [place], [address] Platelet mean volume (Bld) [Entitic vol] 9.8 fL Normal 6.2-12.0 [facility] Comment on above: Performed By: #### L 100.0100, L500.2500 ####[facility] [address] [place], [address] Platelets (Bld) [#/Vol] 277 10*3/uL Normal 150-450 [facility] Comment on above: Performed By: #### L 100.0100, L500.2500 ####[facility] [address] [place], [address] RBC (Bld) [#/Vol] 4.08 10*6/uL Low 4.6-6.2 [facility] Comment on above: Performed By: #### L 100.0100, L500.2500 ####[facility] [address] [place], [address] RDW SD 47.8 fl High 35.1-43.9 [facility] Comment on above: Performed By: #### L 100.0100, L500.2500 ####[facility] [address] [place], [address] WBC (Bld) [#/Vol] 5.3 10*3/uL Normal 4.4-11.0 [facility] Comment on above: Performed By: #### L 100.0100, L500.2500 ####[facility] [address] [place], [address] Basic Metabolic Profile (BMP )on 08-28-2024 BUN/CRE 21.6 RATIO High 10-20 [facility] Comment on above: Performed By: #### L 100.0100, L500.2500 ####[facility] [address] [place], [address] Calcium [Mass/Vol] 9.8 mg/dL Normal 7.6-11.0 [facility] Comment on above: Performed By: #### L 100.0100, L500.2500 ####[facility] [address] [place], [address] Chloride [Moles/Vol] 105 mmol/L Normal 98-108 [facility] Comment on above: Performed By: #### L 100.0100, L500.2500 ####[facility] [address] [place], [address] CO2 [Moles/Vol] 21.9 mmol/L Normal 21.0-32.0 [facility] Comment on above: Performed By: #### L 100.0100, L500.2500 ####[facility] [address] [place], [address] Creatinine [Mass/Vol] 1.14 mg/dL Normal 0.70-1.20 [facility] Comment on above: Performed By: #### L 100.0100, L500.2500 ####[facility] [address] [place], [address] ECRCL 54.17 ml/min Normal 50-250 [facility] Comment on above: Performed By: #### L 100.0100, L500.2500 ####[facility] [address] [place], [address] GAP 13 Normal 5-15 [facility] Comment on above: Performed By: #### L 100.0100, L500.2500 ####[facility] [address] [place], [address] GFR/1.73 sq M.predicted among non-blacks MDRD (S/P/Bld) [Vol rate/Area] 67 mL/min/{1.73_m2} Normal >60 [facility] Comment on above: Result Comment: mL/m in/1.73m2 CKD-EPI Creatinine Equation (2020) Performed By: #### L 100.0100, L500.2500 ####[facility] [address] [place], [address] Glucose [Mass/Vol] 93 mg/dL Normal 70-99 [facility] Comment on above: Performed By: #### L 100.0100, L500.2500 ####[facility] [address] [place], [address] Potassium [Moles/Vol] 3.8 mmol/L Normal 3.3-5.1 [facility] Comment on above: Performed By: #### L 100.0100, L500.2500 ####[facility] [address] [place], [address] Sodium [Moles/Vol] 140 mmol/L Normal 133-145 [facility] Comment on above: Performed By: #### L 100.0100, L500.2500 ####[facility] [address] [place], [address] Urea nitrogen [Mass/Vol] 25 mg/dL High 4-19 [facility] Comment on above: Performed By: #### L 100.0100, L500.2500 ####[facility] [address] [place], [address] CBC W/Diff, Automatedon 08-17 Absolute Lymph 1.06 X10 3/uL Normal 0.83-4.51 [facility] Comment on above: Performed By: #### L 100.0100, L500.2500 ####[facility] [address] [place], [address] Absolute Neut 2.5 X10 3/uL Normal 2.0-7.7 [facility] Comment on above: Performed By: #### L 100.0100, L500.2500 ####[facility] [address] [place], [address] Basophils/100 WBC (Bld) 1.8 % High 0-1 [facility] Comment on above: Performed By: #### L 100.0100, L500.2500 ####[facility] [address] [place], [address] Eosinophils/100 WBC (Bld) 7.5 % High 0-5 [facility] Comment on above: Performed By: #### L 100.0100, L500.2500 ####[facility] [address] [place], [address] Erythrocyte distribution width (RBC) [Ratio] 13.3 % Normal 11.6-14.6 [facility] Comment on above: Performed By: #### L 100.0100, L500.2500 ####[facility] [address] [place], [address] Hematocrit (Bld) [Volume fraction] 39.0 % Low 40-54 [facility] Comment on above: Performed By: #### L 100.0100, L500.2500 ####[facility] [address] [place], [address] Hemoglobin (Bld) [Mass/Vol] 12.8 g/dL Low 13.0-16.5 [facility] Comment on above: Performed By: #### L 100.0100, L500.2500 ####[facility] [address] [place], [address] IG% 0.400 Normal 0.0-0.9 [facility] Comment on above: Result Comment: IG% - Immature Granulocytes (promyelocytes, myelocytes andmetamyelocytes) > 1% indicates that a LEFT SHIFT is Present. Performed By: #### L 100.0100, L500.2500 ####[facility] [address] [place], [address] Lymphocytes/100 WBC (Bld) 23.4 % Normal 19-41 [facility] Comment on above: Performed By: #### L 100.0100, L500.2500 ####[facility] [address] [place], [address] MCH (RBC) [Entitic mass] 31.1 pg Normal 27.0-32.0 [facility] Comment on above: Performed By: #### L 100.0100, L500.2500 ####[facility] [address] [place], [address] MCHC (RBC) [Mass/Vol] 32.8 g/dL Normal 32-36 [facility] Comment on above: Performed By: #### L 100.0100, L500.2500 ####[facility] [address] [place], [address] MCV (RBC) [Entitic vol] 94.7 fL High 80-94 [facility] Comment on above: Performed By: #### L 100.0100, L500.2500 ####[facility] [address] [place], [address] Monocytes/100 WBC (Bld) 11.3 % High 0-10 [facility] Comment on above: Performed By: #### L 100.0100, L500.2500 ####[facility] [address] [place], [address] Neutrophils/100 WBC (Bld) 55.6 % Normal 47-70 [facility] Comment on above: Performed By: #### L 100.0100, L500.2500 ####[facility] [address] [place], [address] Nucleated RBC (Bld) [#/Vol] 0 10*3/uL Normal 0-5 [facility] Comment on above: Performed By: #### L 100.0100, L500.2500 ####[facility] [address] [place], [address] Platelet mean volume (Bld) [Entitic vol] 9.8 fL Normal 6.2-12.0 [facility] Comment on above: Performed By: #### L 100.0100, L500.2500 ####[facility] [address] [place], [address] Platelets (Bld) [#/Vol] 279 10*3/uL Normal 150-450 [facility] Comment on above: Performed By: #### L 100.0100, L500.2500 ####[facility] [address] [place], [address] RBC (Bld) [#/Vol] 4.12 10*6/uL Low 4.6-6.2 [facility] Comment on above: Performed By: #### L 100.0100, L500.2500 ####[facility] [address] [place], [address] RDW SD 46.1 fl High 35.1-43.9 [facility] Comment on above: Performed By: #### L 100.0100, L500.2500 ####[facility] [address] [place], [address] WBC (Bld) [#/Vol] 4.5 10*3/uL Normal 4.4-11.0 [facility] Comment on above: Performed By: #### L 100.0100, L500.2500 ####[facility] [address] [place], [address] Basic Metabolic Profile (BMP )on 08-27-2024 BUN/CRE 17.2 RATIO Normal 10-20 [facility] Comment on above: Performed By: #### L 500.2500, L100.0100 ####[facility] [address] [place], [address] Calcium [Mass/Vol] 9.5 mg/dL Normal 7.6-11.0 [facility] Comment on above: Performed By: #### L 500.2500, L100.0100 ####[facility] [address] [place], [address] Chloride [Moles/Vol] 104 mmol/L Normal 98-108 [facility] Comment on above: Performed By: #### L 500.2500, L100.0100 ####[facility] [address] [place], [address] CO2 [Moles/Vol] 19.9 mmol/L Low 21.0-32.0 [facility] Comment on above: Performed By: #### L 500.2500, L100.0100 ####[facility] [address] [place], [address] Creatinine [Mass/Vol] 1.18 mg/dL Normal 0.70-1.20 [facility] Comment on above: Performed By: #### L 500.2500, L100.0100 ####[facility] [address] [place], [address] ECRCL 52.25 ml/min Normal 50-250 [facility] Comment on above: Performed By: #### L 500.2500, L100.0100 ####[facility] [address] [place], [address] GAP 14 Normal 5-15 [facility] Comment on above: Performed By: #### L 500.2500, L100.0100 ####[facility] [address] [place], [address] GFR/1.73 sq M.predicted among non-blacks MDRD (S/P/Bld) [Vol rate/Area] 64 mL/min/{1.73_m2} Normal >60 [facility] Comment on above: Result Comment: mL/m in/1.73m2 CKD-EPI Creatinine Equation (2020) Performed By: #### L 500.2500, L100.0100 ####[facility] [address] [place], [address] Glucose [Mass/Vol] 97 mg/dL Normal 70-99 [facility] Comment on above: Performed By: #### L 500.2500, L100.0100 ####[facility] [address] [place], [address] Potassium [Moles/Vol] 3.4 mmol/L Normal 3.3-5.1 [facility] Comment on above: Performed By: #### L 500.2500, L100.0100 ####[facility] [address] [place], [address] Sodium [Moles/Vol] 139 mmol/L Normal 133-145 [facility] Comment on above: Performed By: #### L 500.2500, L100.0100 ####[facility] [address] [place], [address] Urea nitrogen [Mass/Vol] 20 mg/dL High 4-19 [facility] Comment on above: Performed By: #### L 500.2500, L100.0100 ####[facility] [address] [place], [address] Bilirubin Test strip Ql (U)O rdered By: Celia Toribio on 08-27-2024 Bilirubin Ql (U) Negative Negative [facility] CBC W/Diff, Automatedon 08-17 Absolute Lymph 0.95 X10 3/uL Normal 0.83-4.51 [facility] Comment on above: Performed By: #### L 500.2500, L100.0100 ####[facility] [address] [place], [address] Absolute Neut 2.3 X10 3/uL Normal 2.0-7.7 [facility] Comment on above: Performed By: #### L 500.2500, L100.0100 ####[facility] [address] [place], [address] Basophils/100 WBC (Bld) 1.2 % High 0-1 [facility] Comment on above: Performed By: #### L 500.2500, L100.0100 ####[facility] [address] [place], [address] Eosinophils/100 WBC (Bld) 6.3 % High 0-5 [facility] Comment on above: Performed By: #### L 500.2500, L100.0100 ####[facility] [address] [place], [address] Erythrocyte distribution width (RBC) [Ratio] 13.3 % Normal 11.6-14.6 [facility] Comment on above: Performed By: #### L 500.2500, L100.0100 ####[facility] [address] [place], [address] Hematocrit (Bld) [Volume fraction] 38.4 % Low 40-54 [facility] Comment on above: Performed By: #### L 500.2500, L100.0100 ####[facility] [address] [place], [address] Hemoglobin (Bld) [Mass/Vol] 12.8 g/dL Low 13.0-16.5 [facility] Comment on above: Performed By: #### L 500.2500, L100.0100 ####[facility] [address] [place], [address] IG% 0.200 Normal 0.0-0.9 [facility] Comment on above: Result Comment: IG% - Immature Granulocytes (promyelocytes, myelocytes andmetamyelocytes) > 1% indicates that a LEFT SHIFT is Present. Performed By: #### L 500.2500, L100.0100 ####[facility] [address] [place], [address] Lymphocytes/100 WBC (Bld) 23.0 % Normal 19-41 [facility] Comment on above: Performed By: #### L 500.2500, L100.0100 ####[facility] [address] [place], [address] MCH (RBC) [Entitic mass] 31.4 pg Normal 27.0-32.0 [facility] Comment on above: Performed By: #### L 500.2500, L100.0100 ####[facility] [address] [place], [address] MCHC (RBC) [Mass/Vol] 33.3 g/dL Normal 32-36 [facility] Comment on above: Performed By: #### L 500.2500, L100.0100 ####[facility] [address] [place], [address] MCV (RBC) [Entitic vol] 94.3 fL High 80-94 [facility] Comment on above: Performed By: #### L 500.2500, L100.0100 ####[facility] [address] [place], [address] Monocytes/100 WBC (Bld) 13.1 % High 0-10 [facility] Comment on above: Performed By: #### L 500.2500, L100.0100 ####[facility] [address] [place], [address] Neutrophils/100 WBC (Bld) 56.2 % Normal 47-70 [facility] Comment on above: Performed By: #### L 500.2500, L100.0100 ####[facility] [address] [place], [address] Nucleated RBC (Bld) [#/Vol] 0 10*3/uL Normal 0-5 [facility] Comment on above: Performed By: #### L 500.2500, L100.0100 ####[facility] [address] [place], [address] Platelet mean volume (Bld) [Entitic vol] 10.0 fL Normal 6.2-12.0 [facility] Comment on above: Performed By: #### L 500.2500, L100.0100 ####[facility] [address] [place], [address] Platelets (Bld) [#/Vol] 253 10*3/uL Normal 150-450 [facility] Comment on above: Performed By: #### L 500.2500, L100.0100 ####[facility] [address] [place], [address] RBC (Bld) [#/Vol] 4.07 10*6/uL Low 4.6-6.2 [facility] Comment on above: Performed By: #### L 500.2500, L100.0100 ####[facility] [address] [place], [address] RDW SD 46.1 fl High 35.1-43.9 [facility] Comment on above: Performed By: #### L 500.2500, L100.0100 ####[facility] [address] [place], [address] WBC (Bld) [#/Vol] 4.1 10*3/uL Low 4.4-11.0 [facility] Comment on above: Performed By: #### L 500.2500, L100.0100 ####[facility] [address] [place], [address] CBC-Complete Blood Cnt No Di abdulkadiron 08-27-2024 Erythrocyte distribution width (RBC) [Ratio] 13.4 % Normal 11.6-14.6 [facility] Comment on above: Performed By: #### L 100.0500 ####[facility] [address] [place], [address] Hematocrit (Bld) [Volume fraction] 40.6 % Normal 40-54 [facility] Comment on above: Performed By: #### L 100.0500 ####[facility] [address] [place], [address] Hemoglobin (Bld) [Mass/Vol] 13.5 g/dL Normal 13.0-16.5 [facility] Comment on above: Performed By: #### L 100.0500 ####[facility] [address] [place], [address] MCH (RBC) [Entitic mass] 31.5 pg Normal 27.0-32.0 [facility] Comment on above: Performed By: #### L 100.0500 ####[facility] [address] [place], [address] MCHC (RBC) [Mass/Vol] 33.3 g/dL Normal 32-36 [facility] Comment on above: Performed By: #### L 100.0500 ####[facility] [address] [place], [address] MCV (RBC) [Entitic vol] 94.6 fL High 80-94 [facility] Comment on above: Performed By: #### L 100.0500 ####[facility] [address] [place], [address] Platelet mean volume (Bld) [Entitic vol] 9.8 fL Normal 6.2-12.0 [facility] Comment on above: Performed By: #### L 100.0500 ####[facility] [address] [place], [address] Platelets (Bld) [#/Vol] 283 10*3/uL Normal 150-450 [facility] Comment on above: Performed By: #### L 100.0500 ####[facility] [address] [place], [address] RBC (Bld) [#/Vol] 4.29 10*6/uL Low 4.6-6.2 [facility] Comment on above: Performed By: #### L 100.0500 ####[facility] [address] [place], [address] RDW SD 46.0 fl High 35.1-43.9 [facility] Comment on above: Performed By: #### L 100.0500 ####[facility] [address] [place], [address] WBC (Bld) [#/Vol] 4.9 10*3/uL Normal 4.4-11.0 [facility] Comment on above: Performed By: #### L 100.0500 ####[facility] [address] [place], [address] Epithelial cells.squamous LM Ql (Urine sed)Ordered By: Celia Toribio on 08-27-2024 Epithelial cells.squamous LM.HPF (Urine sed) [#/Area] 0 /[HPF] 0-5 [facility] Glucose Ql (U)Ordered By: Yariel Toriibo on 08-27-2024 Urine Glucose (UA) Normal mg/dl Normal [facility] Ketones Test strip Ql (U)Ord ered By: Celia Toribio on 08-27-2024 Ketones Ql (U) Negative Negative [facility] Microscopic analysis of urin e for red blood cells (RBC)Ordered By: Celia Toribio on 08-27-2024 Microscopic analysis of urine for red blood cells (RBC) 0 SEEN /hpf 0-5 [facility] Urine RBC 0 SEEN /hpf 0-5 [facility] Mucus LM Ql (Urine sed)Order ed By: Celia Toribio on 08-27-2024 Mucus Ql (Urine sed) 0 SEEN /hpf [facility] Nitrite Test strip Ql (U)Ord ered By: Celia Toribio on 08-27-2024 Nitrite Ql (U) Positive High Negative [facility] Protein Test strip Ql (U)Ord ered By: Celia Toribio on 08-27-2024 Protein Ql (U) 30 mg/dl High Negative [facility] Squamous epithelial cells de tection in urine sediment by light microscopyOrdered By: Celia Toribio on 08-27-2024 Epithelial cells.squamous LM Ql (Urine sed) 0-5 SEEN /hpf 0-5 [facility] Urinalysis, Completeon 08-27 BACTERIA 4+ /hpf Normal None Seen [facility] Comment on above: Order Comment: CLEAN CATCH Performed By: #### M 100.2200, L400.0001 ####[facility] [address] [place], [address] EPI,SQUAMOUS 0-5 SEEN Normal 0-5 [facility] Comment on above: Order Comment: CLEAN CATCH Performed By: #### M 100.2200, L400.0001 ####[facility] [address] [place], [address] RBC 0 SEEN Normal 0-5 [facility] Comment on above: Order Comment: CLEAN CATCH Performed By: #### M 100.2200, L400.0001 ####[facility] [address] [place], [address] WBC 25-50 SEEN Normal 0-5 [facility] Comment on above: Order Comment: CLEAN CATCH Performed By: #### M 100.2200, L400.0001 ####[facility] [address] [place], [address] Mucus Ql (Urine sed) 0 SEEN Normal [facility] Comment on above: Order Comment: CLEAN CATCH Performed By: #### M 100.2200, L400.0001 ####[facility] [address] [place], [address] Urine blood detectionOrdered By: Celia Toribio on 08-27-2024 Urine Occult Blood Negative Negative [facility] Urine clarityOrdered By: Allyson Toribio on 08-27-2024 Clarity (U) Clear Clear [facility] Urine color determinationOrd ered By: Celia Toribio on 08-27-2024 Color (U) Yellow Yellow [facility] Urine cultureOrdered By: Allyson Toribio on 08-27-2024 Bacteria identified Cx Nom (U) ESBL Escherichia coli Abnormal [facility] Urine glucose detectionOrder ed By: Celia Toribio on 08-27-2024 Glucose Ql (U) Normal mg/dl Normal [facility] Urine leukocyte esterase det ection by dipstickOrdered By: Celia Toribio on 08-27-2024 Leukocyte esterase Test strip Ql (U) 500 /ul High Negative [facility] Urine pHOrdered By: Celia rapp on 08-27-2024 pH (U) 6.0 [pH] 5.0 - 8.0 [facility] Urine sediment bacteria coun t by microscopy (number/high power field)Ordered By: Celia Toribio on 08-27-2024 Bacteria LM.HPF (Urine sed) [#/Area] 4 /[HPF] None Seen [facility] Urine specific gravity measu rementOrdered By: Celia Toribio on 08-27-2024 Specific gravity (U) [Rel density] 1.015 1.002-1.030 [facility] Urine urobilinogen measureme ntOrdered By: Celia Toribio on 08-27-2024 Urobilinogen Ql (U) Normal mg/dl Normal [facility] Urobilinogen Ql (U)Ordered B y: Celia Toribio on 08-27-2024 Urine Urobilinogen Normal mg/dl Normal [facility] White blood cell countOrdere d By: Celia Toribio on 08-27-2024 Urine WBC 25-50 SEEN /hpf 0-5 [facility] White blood cell count 25-50 SEEN /hpf 0-5 [facility] Bilirubin, totalOrdered By: Lisha Talamantes on 08-26-2024 Bilirubin [Mass/Vol] 0.25 mg/dL 0.00-1.30 [facility] CBC W/Diff, Automatedon 03-1 0-2025 Absolute Lymph 0.94 X10 3/uL Normal 0.83-4.51 [facility] Comment on above: Performed By: #### L 500.4050, L501.5200, L100.0100, L501.2300 ####[facility] [address] [place], [address] Absolute Neut 2.9 X10 3/uL Normal 2.0-7.7 [facility] Comment on above: Performed By: #### L 500.4050, L501.5200, L100.0100, L501.2300 ####[facility] [address] [place], [address] Basophils/100 WBC (Bld) 1.1 % High 0-1 [facility] Comment on above: Performed By: #### L 500.4050, L501.5200, L100.0100, L501.2300 ####[facility] [address] [place], [address] Eosinophils/100 WBC (Bld) 3.4 % Normal 0-5 [facility] Comment on above: Performed By: #### L 500.4050, L501.5200, L100.0100, L501.2300 ####[facility] [address] [place], [address] Erythrocyte distribution width (RBC) [Ratio] 13.3 % Normal 11.6-14.6 [facility] Comment on above: Performed By: #### L 500.4050, L501.5200, L100.0100, L501.2300 ####[facility] [address] [place], [address] Hematocrit (Bld) [Volume fraction] 40.6 % Normal 40-54 [facility] Comment on above: Performed By: #### L 500.4050, L501.5200, L100.0100, L501.2300 ####[facility] [address] [place], [address] Hemoglobin (Bld) [Mass/Vol] 13.3 g/dL Normal 13.0-16.5 [facility] Comment on above: Performed By: #### L 500.4050, L501.5200, L100.0100, L501.2300 ####[facility] [address] [place], [address] IG% 0.200 Normal 0.0-0.9 [facility] Comment on above: Result Comment: IG% - Immature Granulocytes (promyelocytes, myelocytes andmetamyelocytes) > 1% indicates that a LEFT SHIFT is Present. Performed By: #### L 500.4050, L501.5200, L100.0100, L501.2300 ####[facility] [address] [place], [address] Lymphocytes/100 WBC (Bld) 19.8 % Normal 19-41 [facility] Comment on above: Performed By: #### L 500.4050, L501.5200, L100.0100, L501.2300 ####[facility] [address] [place], [address] MCH (RBC) [Entitic mass] 31.2 pg Normal 27.0-32.0 [facility] Comment on above: Performed By: #### L 500.4050, L501.5200, L100.0100, L501.2300 ####[facility] [address] [place], [address] MCHC (RBC) [Mass/Vol] 32.8 g/dL Normal 32-36 [facility] Comment on above: Performed By: #### L 500.4050, L501.5200, L100.0100, L501.2300 ####[facility] [address] [place], [address] MCV (RBC) [Entitic vol] 95.3 fL High 80-94 [facility] Comment on above: Performed By: #### L 500.4050, L501.5200, L100.0100, L501.2300 ####[facility] [address] [place], [address] Monocytes/100 WBC (Bld) 15.2 % High 0-10 [facility] Comment on above: Performed By: #### L 500.4050, L501.5200, L100.0100, L501.2300 ####[facility] [address] [place], [address] Neutrophils/100 WBC (Bld) 60.3 % Normal 47-70 [facility] Comment on above: Performed By: #### L 500.4050, L501.5200, L100.0100, L501.2300 ####[facility] [address] [place], [address] Nucleated RBC (Bld) [#/Vol] 0 10*3/uL Normal 0-5 [facility] Comment on above: Performed By: #### L 500.4050, L501.5200, L100.0100, L501.2300 ####[facility] [address] [place], [address] Platelet mean volume (Bld) [Entitic vol] 9.9 fL Normal 6.2-12.0 [facility] Comment on above: Performed By: #### L 500.4050, L501.5200, L100.0100, L501.2300 ####[facility] [address] [place], [address] Platelets (Bld) [#/Vol] 242 10*3/uL Normal 150-450 [facility] Comment on above: Performed By: #### L 500.4050, L501.5200, L100.0100, L501.2300 ####[facility] [address] [place], [address] RBC (Bld) [#/Vol] 4.26 10*6/uL Low 4.6-6.2 [facility] Comment on above: Performed By: #### L 500.4050, L501.5200, L100.0100, L501.2300 ####[facility] [address] [place], [address] RDW SD 46.7 fl High 35.1-43.9 [facility] Comment on above: Performed By: #### L 500.4050, L501.5200, L100.0100, L501.2300 ####[facility] [address] [place], [address] WBC (Bld) [#/Vol] 4.7 10*3/uL Normal 4.4-11.0 [facility] Comment on above: Performed By: #### L 500.4050, L501.5200, L100.0100, L501.2300 ####[facility] [address] [place], [address] COVID 19 AG RAPID ([facility] [place])on 08-26-2024 SARS-CoV-2 (COVID-19) RNA ALEENA+probe Ql (Unsp spec) Normal [facility] Comment on above: Performed By: #### M 100.505 ####[facility] [address] [place], [address] COVID-19 virus antigen assay Ordered By: Celia Toribio on 08-26-2024 SARS-CoV-2 (COVID-19) Ag IA.rapid Ql (Resp) [facility] Comprehensive Metabolic Prof ilon 08-26-2024 Albumin [Mass/Vol] 4.0 g/dL Normal 3.4-4.8 [facility] Comment on above: Performed By: #### L 500.4050, L501.5200, L100.0100, L501.2300 ####[facility] [address] [place], [address] Albumin/Globulin [Mass ratio] 1.4 {ratio} Normal 0.9-2.4 [facility] Comment on above: Performed By: #### L 500.4050, L501.5200, L100.0100, L501.2300 ####[facility] [address] [place], [address] ALK PHOS 67 U/L Normal 40-129 [facility] Comment on above: Performed By: #### L 500.4050, L501.5200, L100.0100, L501.2300 ####[facility] [address] [place], [address] ALT [Catalytic activity/Vol] 28 U/L Normal <=46 [facility] Comment on above: Performed By: #### L 500.4050, L501.5200, L100.0100, L501.2300 ####[facility] [address] [place], [address] AST [Catalytic activity/Vol] 23 U/L Normal <=37 [facility] Comment on above: Performed By: #### L 500.4050, L501.5200, L100.0100, L501.2300 ####[facility] [address] [place], [address] Bilirubin [Mass/Vol] 0.25 mg/dL Normal 0.00-1.30 [facility] Comment on above: Performed By: #### L 500.4050, L501.5200, L100.0100, L501.2300 ####[facility] [address] [place], [address] BUN/CRE 21.8 RATIO High 10-20 [facility] Comment on above: Performed By: #### L 500.4050, L501.5200, L100.0100, L501.2300 ####[facility] [address] [place], [address] Calcium [Mass/Vol] 9.4 mg/dL Normal 7.6-11.0 [facility] Comment on above: Performed By: #### L 500.4050, L501.5200, L100.0100, L501.2300 ####[facility] [address] [place], [address] Chloride [Moles/Vol] 105 mmol/L Normal 98-108 [facility] Comment on above: Performed By: #### L 500.4050, L501.5200, L100.0100, L501.2300 ####[facility] [address] [place], [address] CO2 [Moles/Vol] 17.6 mmol/L Low 21.0-32.0 [facility] Comment on above: Performed By: #### L 500.4050, L501.5200, L100.0100, L501.2300 ####[facility] [address] [place], [address] Creatinine [Mass/Vol] 1.04 mg/dL Normal 0.70-1.20 [facility] Comment on above: Performed By: #### L 500.4050, L501.5200, L100.0100, L501.2300 ####[facility] [address] [place], [address] ECRCL 58.77 ml/min Normal 50-250 [facility] Comment on above: Performed By: #### L 500.4050, L501.5200, L100.0100, L501.2300 ####[facility] [address] [place], [address] GAP 16 High 5-15 [facility] Comment on above: Performed By: #### L 500.4050, L501.5200, L100.0100, L501.2300 ####[facility] [address] [place], [address] GFR/1.73 sq M.predicted among non-blacks MDRD (S/P/Bld) [Vol rate/Area] 75 mL/min/{1.73_m2} Normal >60 [facility] Comment on above: Result Comment: mL/m in/1.73m2 CKD-EPI Creatinine Equation (2020) Performed By: #### L 500.4050, L501.5200, L100.0100, L501.2300 ####[facility] [address] [place], [address] Globulin (S) [Mass/Vol] 2.9 g/dL Normal 2.2-4.2 [facility] Comment on above: Performed By: #### L 500.4050, L501.5200, L100.0100, L501.2300 ####[facility] [address] [place], [address] Glucose [Mass/Vol] 88 mg/dL Normal 70-99 [facility] Comment on above: Performed By: #### L 500.4050, L501.5200, L100.0100, L501.2300 ####[facility] [address] [place], [address] Potassium [Moles/Vol] 3.6 mmol/L Normal 3.3-5.1 [facility] Comment on above: Performed By: #### L 500.4050, L501.5200, L100.0100, L501.2300 ####[facility] [address] [place], [address] Sodium [Moles/Vol] 139 mmol/L Normal 133-145 [facility] Comment on above: Performed By: #### L 500.4050, L501.5200, L100.0100, L501.2300 ####[facility] [address] [place], [address] T PROT 6.9 g/dL Normal 5.9-8.4 [facility] Comment on above: Performed By: #### L 500.4050, L501.5200, L100.0100, L501.2300 ####[facility] [address] [place], [address] Urea nitrogen [Mass/Vol] 23 mg/dL High 4-19 [facility] Comment on above: Performed By: #### L 500.4050, L501.5200, L100.0100, L501.2300 ####[facility] [address] [place], [address] Laboratory - Chemistry and C hemistry - challengeOrdered By: Lisha Talamantes on 08-26-2024 AST [Catalytic activity/Vol] 23 U/L <38 [facility] Lactic Acidon 08-26-2024 Lactate [Moles/Vol] 1.1 mmol/L Normal 0.0-2.0 [facility] Comment on above: Order Comment: Y Performed By: #### L 503.6005 ####[facility] [address] [place], [address] Lactic acid measurementOrder ed By: Celia Toribio on 08-26-2024 Lactate [Moles/Vol] 1.1 mmol/L 0.0-2.0 [facility] Magnesiumon 08-26-2024 Magnesium [Mass/Vol] 1.9 mg/dL Normal 1.5-2.2 [facility] Comment on above: Performed By: #### L 500.4050, L501.5200, L100.0100, L501.2300 ####[facility] [address] [place], [place], [address] Magnesium (Unsp spec) [Mass/ Vol]Ordered By: Lisha Talamantes on 08-26-2024 Magnesium [Mass/Vol] 1.9 mg/dL 1.5-2.2 [facility] Magnesium measurement (mass/ volume)Ordered By: Lisha Talamantes on 08-26-2024 Magnesium (Unsp spec) [Mass/Vol] 1.9 mg/dL 1.5-2.2 [facility] No Panel InformationOrdered By: Lisha Talamantes on 08-26-2024 23 U/L <38 [facility] Phosphoruson 08-26-2024 Phosphate [Mass/Vol] 3.1 mg/dL Normal 2.7-4.5 [facility] Comment on above: Performed By: #### L 500.4050, L501.5200, L100.0100, L501.2300 ####[facility] [address] [place], [place], [address] RESPIRATORY PANEL MOLECULARo n 08-26-2024 RP PANEL Normal [facility] Comment on above: Performed By: #### M 100.638 ####[facility] [address] [place], [place], [address] Respiratory pathogens DNA an d RNA panel ALEENA+probe (Resp)Ordered By: Celia Toribio on 08-26-2024 Respiratory Panel (PCR) [facility] Respiratory pathogens detect ion panel by molecular detection methodOrdered By: Celia Toribio on 08-26-2024 Respiratory pathogens DNA and RNA panel ALEENA+probe (Resp) [facility] SARS-CoV-2 (COVID-19) Ag IA. rapid Ql (Resp)Ordered By: Celia Toribio on 08-26-2024 SARS-CoV-2 Antigen (Rapid) [facility] Serum globulin measurementOr dered By: Lisha Talamantes on 08-26-2024 Globulin (S) [Mass/Vol] 2.9 g/dL 2.2-4.2 [facility] Serum or plasma alanine saul otransferase (ALT) measurementOrdered By: Lisha Talamantes on 08-26-2024 ALT [Catalytic activity/Vol] 28 U/L <47 [facility] Serum or plasma albumin luis urement (mass/volume)Ordered By: Lisha Talamantes on 08-26-2024 Albumin [Mass/Vol] 4.0 g/dL 3.4-4.8 [facility] Serum or plasma albumin/glob ulin mass ratioOrdered By: Lisha Talamantes on 08-26-2024 Albumin/Globulin [Mass ratio] 1.4 {ratio} 0.9-2.4 [facility] Serum or plasma alkaline kathleen sphatase measurementOrdered By: Lisha Talamantes on 08-26-2024 ALP [Catalytic activity/Vol] 67 U/L 40-129 [facility] Serum phosphorus measurement Ordered By: Lisha Talamantes on 08-26-2024 Phosphorus Level 3.1 mg/dL 2.7-4.5 [facility] Total proteinOrdered By: Ying Talamantes on 08-26-2024 Protein [Mass/Vol] 6.9 g/dL 5.9-8.4 [facility] Absolute neutrophil countOrd ered By: Jaden Jauregui on 08-25-2024 Neutrophils (Bld) [#/Vol] 4.6 10*3/uL 2.0-7.7 [facility] Anion gap in Serum or Plasma Ordered By: Jaden Jauregui on 08-25-2024 Anion gap [Moles/Vol] 13 mmol/L 5-15 [facility] BUN/creatinine ratioOrdered By: Jaden Jauregui on 08-25-2024 Urea nitrogen/Creatinine [Mass ratio] 21.4 mg/mg High 10-20 [facility] Basophil percentageOrdered B y: Jaden Jauregui on 08-25-2024 Basophils/100 WBC (Bld) 0.8 % 0-1 [facility] Bilirubin, totalOrdered By: Jaden Jauregui on 08-25-2024 Bilirubin [Mass/Vol] 0.22 mg/dL 0.00-1.30 [facility] CBC W/Diff, Automatedon Absolute Lymph 0.61 X10 3/uL Low 0.83-4.51 [facility] Comment on above: Performed By: #### L 500.4050, L100.0100 ####[facility] [address] [place], [address] Absolute Neut 4.6 X10 3/uL Normal 2.0-7.7 [facility] Comment on above: Performed By: #### L 500.4050, L100.0100 ####[facility] [address] [place], [address] Basophils/100 WBC (Bld) 0.8 % Normal 0-1 [facility] Comment on above: Performed By: #### L 500.4050, L100.0100 ####[facility] [address] [place], [address] Eosinophils/100 WBC (Bld) 0.3 % Normal 0-5 [facility] Comment on above: Performed By: #### L 500.4050, L100.0100 ####[facility] [address] [place], [address] Erythrocyte distribution width (RBC) [Ratio] 13.2 % Normal 11.6-14.6 [facility] Comment on above: Performed By: #### L 500.4050, L100.0100 ####[facility] [address] [place], [address] Hematocrit (Bld) [Volume fraction] 43.3 % Normal 40-54 [facility] Comment on above: Performed By: #### L 500.4050, L100.0100 ####[facility] [address] [place], [address] Hemoglobin (Bld) [Mass/Vol] 14.2 g/dL Normal 13.0-16.5 [facility] Comment on above: Performed By: #### L 500.4050, L100.0100 ####[facility] [address] [place], [address] IG% 0.300 Normal 0.0-0.9 [facility] Comment on above: Result Comment: IG% - Immature Granulocytes (promyelocytes, myelocytes andmetamyelocytes) > 1% indicates that a LEFT SHIFT is Present. Performed By: #### L 500.4050, L100.0100 ####[facility] [address] [place], [address] Lymphocytes/100 WBC (Bld) 10.3 % Low 19-41 [facility] Comment on above: Performed By: #### L 500.4050, L100.0100 ####[facility] [address] [place], [address] MCH (RBC) [Entitic mass] 31.4 pg Normal 27.0-32.0 [facility] Comment on above: Performed By: #### L 500.4050, L100.0100 ####[facility] [address] [place], [address] MCHC (RBC) [Mass/Vol] 32.8 g/dL Normal 32-36 [facility] Comment on above: Performed By: #### L 500.4050, L100.0100 ####[facility] [address] [place], [address] MCV (RBC) [Entitic vol] 95.8 fL High 80-94 [facility] Comment on above: Performed By: #### L 500.4050, L100.0100 ####[facility] [address] [place], [address] Monocytes/100 WBC (Bld) 9.9 % Normal 0-10 [facility] Comment on above: Performed By: #### L 500.4050, L100.0100 ####[facility] [address] [place], [address] Neutrophils/100 WBC (Bld) 78.4 % High 47-70 [facility] Comment on above: Performed By: #### L 500.4050, L100.0100 ####[facility] [address] [place], [address] Nucleated RBC (Bld) [#/Vol] 0 10*3/uL Normal 0-5 [facility] Comment on above: Performed By: #### L 500.4050, L100.0100 ####[facility] [address] [place], [address] Platelet mean volume (Bld) [Entitic vol] 9.5 fL Normal 6.2-12.0 [facility] Comment on above: Performed By: #### L 500.4050, L100.0100 ####[facility] [address] [place], [address] Platelets (Bld) [#/Vol] 245 10*3/uL Normal 150-450 [facility] Comment on above: Performed By: #### L 500.4050, L100.0100 ####[facility] [address] [place], [address] RBC (Bld) [#/Vol] 4.52 10*6/uL Low 4.6-6.2 [facility] Comment on above: Performed By: #### L 500.4050, L100.0100 ####[facility] [address] [place], [address] RDW SD 46.6 fl High 35.1-43.9 [facility] Comment on above: Performed By: #### L 500.4050, L100.0100 ####[facility] [address] [place], [address] WBC (Bld) [#/Vol] 5.9 10*3/uL Normal 4.4-11.0 [facility] Comment on above: Performed By: #### L 500.4050, L100.0100 ####[facility] [address] [place], [address] Carbon dioxide, total [Moles /volume] in Central venous bloodOrdered By: Jaden Jauregui on 08-25-2024 CO2 [Moles/Vol] 24.5 mmol/L 21.0-32.0 [facility] Chest 1 View (Portable)on Chest 1 View (Portable) Normal W [facility] Chloride assayOrdered By: Joseph Jauregui on 08-25-2024 Chloride [Moles/Vol] 102 mmol/L 98-108 [facility] Comprehensive Metabolic Prof ilon 08-25-2024 Albumin [Mass/Vol] 4.5 g/dL Normal 3.4-4.8 [facility] Comment on above: Performed By: #### L 500.4050, L100.0100 ####[facility] [address] [place], [address] Albumin/Globulin [Mass ratio] 1.4 {ratio} Normal 0.9-2.4 [facility] Comment on above: Performed By: #### L 500.4050, L100.0100 ####[facility] [address] [place], [address] ALK PHOS 77 U/L Normal 40-129 [facility] Comment on above: Performed By: #### L 500.4050, L100.0100 ####[facility] [address] [place], [address] ALT [Catalytic activity/Vol] 32 U/L Normal <=46 [facility] Comment on above: Performed By: #### L 500.4050, L100.0100 ####[facility] [address] [place], [address] AST [Catalytic activity/Vol] 26 U/L Normal <=37 [facility] Comment on above: Performed By: #### L 500.4050, L100.0100 ####[facility] [address] [place], [address] Bilirubin [Mass/Vol] 0.22 mg/dL Normal 0.00-1.30 [facility] Comment on above: Performed By: #### L 500.4050, L100.0100 ####[facility] [address] [place], [address] BUN/CRE 21.4 RATIO High 10-20 [facility] Comment on above: Performed By: #### L 500.4050, L100.0100 ####[facility] [address] [place], [address] Calcium [Mass/Vol] 10.0 mg/dL Normal 7.6-11.0 [facility] Comment on above: Performed By: #### L 500.4050, L100.0100 ####[facility] [address] [place], [address] Chloride [Moles/Vol] 102 mmol/L Normal 98-108 [facility] Comment on above: Performed By: #### L 500.4050, L100.0100 ####[facility] [address] [place], [address] CO2 [Moles/Vol] 24.5 mmol/L Normal 21.0-32.0 [facility] Comment on above: Performed By: #### L 500.4050, L100.0100 ####[facility] [address] [place], [address] Creatinine [Mass/Vol] 1.17 mg/dL Normal 0.70-1.20 [facility] Comment on above: Performed By: #### L 500.4050, L100.0100 ####[facility] [address] [place], [address] GAP 13 Normal 5-15 [facility] Comment on above: Performed By: #### L 500.4050, L100.0100 ####[facility] [address] [place], [address] GFR/1.73 sq M.predicted among non-blacks MDRD (S/P/Bld) [Vol rate/Area] 65 mL/min/{1.73_m2} Normal >60 [facility] Comment on above: Result Comment: mL/m in/1.73m2 CKD-EPI Creatinine Equation (2020) Performed By: #### L 500.4050, L100.0100 ####[facility] [address] [place], [address] Globulin (S) [Mass/Vol] 3.2 g/dL Normal 2.2-4.2 [facility] Comment on above: Performed By: #### L 500.4050, L100.0100 ####[facility] [address] [place], [address] Glucose [Mass/Vol] 98 mg/dL Normal 70-99 [facility] Comment on above: Performed By: #### L 500.4050, L100.0100 ####[facility] [address] [place], [address] Potassium [Moles/Vol] 3.8 mmol/L Normal 3.3-5.1 [facility] Comment on above: Performed By: #### L 500.4050, L100.0100 ####[facility] [address] [place], [address] Sodium [Moles/Vol] 139 mmol/L Normal 133-145 [facility] Comment on above: Performed By: #### L 500.4050, L100.0100 ####[facility] [address] [place], [address] T PROT 7.7 g/dL Normal 5.9-8.4 [facility] Comment on above: Performed By: #### L 500.4050, L100.0100 ####[facility] [address] [place], [address] Urea nitrogen [Mass/Vol] 25 mg/dL High 4-19 [facility] Comment on above: Performed By: #### L 500.4050, L100.0100 ####[facility] [address] [place], [place], [id number] Emergency Department Summary on 08-25-2024 Emergency Department Summary Normal [facility] Eosinophil percentageOrdered By: Jaden Jauregui on 08-25-2024 Eosinophils/100 WBC (Bld) 0.3 % 0-5 [facility] Erythrocyte distribution wid th ratioOrdered By: Jaden Jauregui on 08-25-2024 Erythrocyte distribution width (RBC) [Ratio] 13.2 % 11.6-14.6 [facility] Erythrocyte distribution wid th standard deviationOrdered By: Jaden Jauregui on 08-25-2024 Erythrocyte distribution width (RBC) [Entitic vol] 46.6 fL High 35.1-43.9 [facility] GFR/1.73 sq M.predicted gisella g non-blacks MDRD (S/P/Bld) [Vol rate/Area]Ordered By: Jaden Jauregui on 08-25-2024 Estimated GFR (MDRD) Non-Af Amer 65 >60 [facility] Comment on above: mL/min/1.73m2 CKD-EP I Creatinine Equation (2020) H AND P Exam - [facility] 08-25-2024 H&P Exam - Hospitalist Normal [facility] Hematocrit Auto (Bld) [Volum e fraction]Ordered By: Jaden Jauregui on 08-25-2024 Hematocrit (Bld) [Volume fraction] 43.3 % 40-54 [facility] Hemoglobin measurementOrdere d By: Jaden Jauregui on 08-25-2024 Hemoglobin (Bld) [Mass/Vol] 14.2 g/dL 13.0-16.5 [facility] Immature granulocytes/100 WB C Auto (Bld)Ordered By: Jaden Jauregui on 08-25-2024 Immature granulocytes/100 WBC (Bld) 0.300 % 0.0-0.9 [facility] Comment on above: IG% - Immature Granu locytes (promyelocytes, myelocytes and metamyelocytes) > 1% indicates that a LEFT SHIFT is Present. Laboratory - Chemistry and C hemistry - challengeOrdered By: Jaden Jauregui on 08-25-2024 AST [Catalytic activity/Vol] 26 U/L <38 [facility] Lymphocytes Auto (Unsp spec) [#/Vol]Ordered By: Jaden Jauregui on 08-25-2024 Lymphocytes (Bld) [#/Vol] 0.61 10*3/uL Low 0.83-4.51 [facility] Lymphocytes/100 WBC Auto (Un sp spec)Ordered By: Jaden Jauregui on 08-25-2024 Lymphocytes/100 WBC (Bld) 10.3 % Low 19-41 [facility] MCV (mean corpuscular volume ) determinationOrdered By: Jaden Jauregui on 08-25-2024 MCV (RBC) [Entitic vol] 95.8 fL High 80-94 [facility] Mean corpuscular hemoglobin (MCH) determinationOrdered By: Jaden Jauregui on 08-25-2024 MCH (RBC) [Entitic mass] 31.4 pg 27.0-32.0 [facility] Mean corpuscular hemoglobin concentration (MCHC) determinationOrdered By: Jaden Jauregui on 08-25-2024 MCHC (RBC) [Mass/Vol] 32.8 g/dL 32-36 [facility] Mean platelet volume determi nationOrdered By: Jaden Jauregui on 08-25-2024 Platelet mean volume (Bld) [Entitic vol] 9.5 fL 6.2-12.0 [facility] Monocyte percentageOrdered B y: Jaden Jaureugi on 08-25-2024 Monocytes/100 WBC (Bld) 9.9 % 0-10 [facility] Neutrophil percentageOrdered By: Jaden Jauregui on 08-25-2024 Neutrophils/100 WBC (Bld) 78.4 % High 47-70 [facility] Nucleated red blood cell per centageOrdered By: Jaden Jauregui on 08-25-2024 Nucleated RBC/100 WBC (Bld) [Ratio] 0 % 0-5 [facility] Platelet countOrdered By: Joseph Jauregui on 08-25-2024 Platelets (Bld) [#/Vol] 245 10*3/uL 150-450 [facility] Potassium (Unsp spec) [Mass/ Vol]Ordered By: Jaden Jauregui on 08-25-2024 Potassium [Moles/Vol] 3.8 mmol/L 3.3-5.1 [facility] RBC Auto (Bld) [#/Vol]Ordere d By: Jaden Jauregui on 08-25-2024 RBC (Bld) [#/Vol] 4.52 10*6/uL Low 4.6-6.2 [facility] Serum creatinine measurement (mass/volume)Ordered By: Jaden Jauregui on 08-25-2024 Creatinine [Mass/Vol] 1.17 mg/dL 0.70-1.20 [facility] Serum globulin measurementOr dered By: Jaden Jauregui on 08-25-2024 Globulin (S) [Mass/Vol] 3.2 g/dL 2.2-4.2 [facility] Serum glucose measurement (m ass/volume)Ordered By: Jaden Jauregui on 08-25-2024 Glucose [Mass/Vol] 98 mg/dL 70-99 [facility] Serum or plasma alanine saul otransferase (ALT) measurementOrdered By: Jaden Jauregui on 08-25-2024 ALT [Catalytic activity/Vol] 32 U/L <47 [facility] Serum or plasma albumin luis urement (mass/volume)Ordered By: Jaden Jauregui on 08-25-2024 Albumin [Mass/Vol] 4.5 g/dL 3.4-4.8 [facility] Serum or plasma albumin/glob ulin mass ratioOrdered By: Jaden Jauregui on 08-25-2024 Albumin/Globulin [Mass ratio] 1.4 {ratio} 0.9-2.4 [facility] Serum or plasma alkaline kathleen sphatase measurementOrdered By: Jaden Jauregui on 08-25-2024 ALP [Catalytic activity/Vol] 77 U/L 40-129 [facility] Serum or plasma calcium luis urement (mass/volume)Ordered By: Jaden Jauregui on 08-25-2024 Calcium [Mass/Vol] 10.0 mg/dL 7.6-11.0 [facility] Serum or plasma urea nitroge n measurement (mass/volume)Ordered By: Jaden Jauregui on 08-25-2024 Urea nitrogen [Mass/Vol] 25 mg/dL High 4-19 [facility] Sodium levelOrdered By: Maurice Jauregui on 08-25-2024 Sodium [Moles/Vol] 139 mmol/L 133-145 [facility] Total proteinOrdered By: Rad Jauregui on 08-25-2024 Protein [Mass/Vol] 7.7 g/dL 5.9-8.4 [facility] White blood cell (WBC) count Ordered By: Jaden Jauregui on 08-25-2024 WBC (Bld) [#/Vol] 5.9 10*3/uL 4.4-11.0 [facility] 75-EC-Xakldcz DOrdered By: Landry Crane on 07-15-2024 Vitamin D 25-Hydroxy 36.0 ng/mL [facility] Comment on above: Vitamin D 25(OH) Sta tus Range Deficiency <20 ng/mL (50nmol/L) Insufficiency 20 - 30 ng/mL (50 - 75 nmol/L) Sufficiency 30 - 100 ng/mL (75 - 250 nmol/L) Toxicity >100 ng/mL (>250 nmol/L) Absolute neutrophil countOrd ered By: Carla Crane on 07-15-2024 Neutrophils (Bld) [#/Vol] 2.7 10*3/uL 2.0-7.7 [facility] Albumin to globulin ratioOrd ered By: Carla Crane on 07-15-2024 Albumin/Globulin [Mass ratio] 1.0 {ratio} Normal 0.9-2.4 [facility] Comment on above: Order Comment: 414-2 Performed By: #### L 500.4050, L506.1000, L501.9985, L501.7900, L503.0105, L501.5200, L100.0100 ####[facility] [address] [place], [address] Basophil percentageOrdered B y: Carla Crane on 07-15-2024 Basophils/100 WBC (Bld) 1.4 % High 0-1 [facility] Bilirubin, totalOrdered By: Carla Crane on 07-15-2024 Bilirubin [Mass/Vol] 0.30 mg/dL Normal 0.20-1.00 [facility] Comment on above: For patients on eltr ombopag therapy, use of Dimension [place] TBIL is not recommended. Order Comment: 414-2 Result Comment: For patients on eltrombopag therapy, use of Dimension [place] TBIL is not recommended. Performed By: #### L 500.4050, L506.1000, L501.9985, L501.7900, L503.0105, L501.5200, L100.0100 ####[facility] [address] [place], [address](528) Blood urea nitrogen (BUN)/cr eatinine ratioOrdered By: Carla Crane on 07-15-2024 Urea nitrogen/Creatinine [Mass ratio] 25.4 mg/mg High 10-20 [facility] CBC W/Diff, Automatedon 06-20 Absolute Lymph 1.38 X10 3/uL Normal 0.83-4.51 [facility] Comment on above: Order Comment: 414-2 Performed By: #### L 500.4050, L506.1000, L501.9985, L501.7900, L503.0105, L501.5200, L100.0100 ####[facility] [address] [place], [address](789) Absolute Neut 2.7 X10 3/uL Normal 2.0-7.7 [facility] Comment on above: Order Comment: 414-2 Performed By: #### L 500.4050, L506.1000, L501.9985, L501.7900, L503.0105, L501.5200, L100.0100 ####[facility] [address] [place], [place], [phone](942) Basophils/100 WBC (Bld) 1.4 % High 0-1 [facility] Comment on above: Order Comment: 414-2 Performed By: #### L 500.4050, L506.1000, L501.9985, L501.7900, L503.0105, L501.5200, L100.0100 ####[facility] [address] [place], [address] Eosinophils/100 WBC (Bld) 9.4 % High 0-5 [facility] Comment on above: Order Comment: 414-2 Performed By: #### L 500.4050, L506.1000, L501.9985, L501.7900, L503.0105, L501.5200, L100.0100 ####[facility] [address] [place], [address] Erythrocyte distribution width (RBC) [Ratio] 12.8 % Normal 11.6-14.6 [facility] Comment on above: Order Comment: 414-2 Performed By: #### L 500.4050, L506.1000, L501.9985, L501.7900, L503.0105, L501.5200, L100.0100 ####[facility] [address] [place], [address] Hematocrit (Bld) [Volume fraction] 45.8 % Normal 40-54 [facility] Comment on above: Order Comment: 414-2 Performed By: #### L 500.4050, L506.1000, L501.9985, L501.7900, L503.0105, L501.5200, L100.0100 ####[facility] [address] [place], [address] Hemoglobin (Bld) [Mass/Vol] 14.8 g/dL Normal 13.0-16.5 [facility] Comment on above: Order Comment: 414-2 Performed By: #### L 500.4050, L506.1000, L501.9985, L501.7900, L503.0105, L501.5200, L100.0100 ####[facility] [address] [place], [address] IG% 0.400 Normal 0.0-0.9 [facility] Comment on above: Order Comment: 414-2 Result Comment: IG% - Immature Granulocytes (promyelocytes, myelocytes andmetamyelocytes) > 1% indicates that a LEFT SHIFT is Present. Performed By: #### L 500.4050, L506.1000, L501.9985, L501.7900, L503.0105, L501.5200, L100.0100 ####[facility] [address] [place], [address] Lymphocytes/100 WBC (Bld) 26.9 % Normal 19-41 [facility] Comment on above: Order Comment: 414-2 Performed By: #### L 500.4050, L506.1000, L501.9985, L501.7900, L503.0105, L501.5200, L100.0100 ####[facility] [address] [place], [address] MCH (RBC) [Entitic mass] 31.2 pg Normal 27.0-32.0 [facility] Comment on above: Order Comment: 414-2 Performed By: #### L 500.4050, L506.1000, L501.9985, L501.7900, L503.0105, L501.5200, L100.0100 ####[facility] [address] [place], [address] MCHC (RBC) [Mass/Vol] 32.3 g/dL Normal 32-36 [facility] Comment on above: Order Comment: 414-2 Performed By: #### L 500.4050, L506.1000, L501.9985, L501.7900, L503.0105, L501.5200, L100.0100 ####[facility] [address] [place], [address] MCV (RBC) [Entitic vol] 96.4 fL High 80-94 [facility] Comment on above: Order Comment: 414-2 Performed By: #### L 500.4050, L506.1000, L501.9985, L501.7900, L503.0105, L501.5200, L100.0100 ####[facility] [address] [place], [address] Monocytes/100 WBC (Bld) 8.8 % Normal 0-10 [facility] Comment on above: Order Comment: 414-2 Performed By: #### L 500.4050, L506.1000, L501.9985, L501.7900, L503.0105, L501.5200, L100.0100 ####[facility] [address] [place], [address] Neutrophils/100 WBC (Bld) 53.1 % Normal 47-70 [facility] Comment on above: Order Comment: 414-2 Performed By: #### L 500.4050, L506.1000, L501.9985, L501.7900, L503.0105, L501.5200, L100.0100 ####[facility] [address] [place], [address] Nucleated RBC (Bld) [#/Vol] 0 10*3/uL Normal 0-5 [facility] Comment on above: Order Comment: 414-2 Performed By: #### L 500.4050, L506.1000, L501.9985, L501.7900, L503.0105, L501.5200, L100.0100 ####[facility] [address] [place], [address] Platelet mean volume (Bld) [Entitic vol] 9.6 fL Normal 6.2-12.0 [facility] Comment on above: Order Comment: 414-2 Performed By: #### L 500.4050, L506.1000, L501.9985, L501.7900, L503.0105, L501.5200, L100.0100 ####[facility] [address] [place], [address] Platelets (Bld) [#/Vol] 295 10*3/uL Normal 150-450 [facility] Comment on above: Order Comment: 414-2 Performed By: #### L 500.4050, L506.1000, L501.9985, L501.7900, L503.0105, L501.5200, L100.0100 ####[facility] [address] [place], [address] RBC (Bld) [#/Vol] 4.75 10*6/uL Normal 4.6-6.2 [facility] Comment on above: Order Comment: 414-2 Performed By: #### L 500.4050, L506.1000, L501.9985, L501.7900, L503.0105, L501.5200, L100.0100 ####[facility] [address] [place], [address] RDW SD 45.4 fl High 35.1-43.9 [facility] Comment on above: Order Comment: 414-2 Performed By: #### L 500.4050, L506.1000, L501.9985, L501.7900, L503.0105, L501.5200, L100.0100 ####[facility] [address] [place], [address] WBC (Bld) [#/Vol] 5.1 10*3/uL Normal 4.4-11.0 [facility] Comment on above: Order Comment: 414-2 Performed By: #### L 500.4050, L506.1000, L501.9985, L501.7900, L503.0105, L501.5200, L100.0100 ####[facility] [address] [place], [address] Carbamazepine (Tegretol)on 0 07-15-2024 CARBAMAZEPINE 7.0 ug/mL Normal 4.0-12.0 [facility] Comment on above: Order Comment: 414-2 Performed By: #### L 500.4050, L506.1000, L501.9985, L501.7900, L503.0105, L501.5200, L100.0100 ####[facility] [address] [place], [place], [id number] Carbon dioxide measurementOr dered By: Carla Crane on 07-15-2024 CO2 [Moles/Vol] 24.0 mmol/L Normal 21.0-32.0 [facility] Comment on above: Order Comment: 414-2 Performed By: #### L 500.4050, L506.1000, L501.9985, L501.7900, L503.0105, L501.5200, L100.0100 ####[facility] [address] [place], [place], [id number] Chloride measurementOrdered By: Carla Crane on 07-15-2024 Chloride [Moles/Vol] 107 mmol/L Normal 98-107 [facility] Comment on above: Order Comment: 414-2 Performed By: #### L 500.4050, L506.1000, L501.9985, L501.7900, L503.0105, L501.5200, L100.0100 ####[facility] [address] [place], [place], [id number] Comprehensive Metabolic Prof ilon 07-15-2024 ALK P 70 U/L Normal 45-117 [facility] Comment on above: Order Comment: 414-2 Performed By: #### L 500.4050, L506.1000, L501.9985, L501.7900, L503.0105, L501.5200, L100.0100 ####[facility] [address] [place], [address] BUN/CRE 25.4 RATIO High 10-20 [facility] Comment on above: Order Comment: 414-2 Performed By: #### L 500.4050, L506.1000, L501.9985, L501.7900, L503.0105, L501.5200, L100.0100 ####[facility] [address] [place], [address] CA,Total 10.1 mg/dL Normal 8.5-10.1 [facility] Comment on above: Order Comment: 414-2 Performed By: #### L 500.4050, L506.1000, L501.9985, L501.7900, L503.0105, L501.5200, L100.0100 ####[facility] [address] [place], [address] EST GFR - AA 77 mL/min Normal >60 [facility] Comment on above: Order Comment: 414-2 Result Comment: Afri can Kazakh GFR Calc Performed By: #### L 500.4050, L506.1000, L501.9985, L501.7900, L503.0105, L501.5200, L100.0100 ####[facility] [address] [place], [address] GAP 7 Normal 5-15 [facility] Comment on above: Order Comment: 414-2 Performed By: #### L 500.4050, L506.1000, L501.9985, L501.7900, L503.0105, L501.5200, L100.0100 ####[facility] [address] [place], [address] GFR/1.73 sq M.predicted among non-blacks MDRD (S/P/Bld) [Vol rate/Area] 64 mL/min/{1.73_m2} Normal >60 [facility] Comment on above: Order Comment: 414-2 Result Comment: Non- GFR Calc Performed By: #### L 500.4050, L506.1000, L501.9985, L501.7900, L503.0105, L501.5200, L100.0100 ####[facility] [address] [place], [place], [id number] T PROT 8.0 g/dL Normal 6.4-8.2 [facility] Comment on above: Order Comment: 414-2 Performed By: #### L 500.4050, L506.1000, L501.9985, L501.7900, L503.0105, L501.5200, L100.0100 ####[facility] [address] [place], [place], [id number] Comprehensive Metabolic Prof ilOrdered By: Carla Crane on 07-15-2024 AST [Catalytic activity/Vol] 23 U/L Normal 15-37 [facility] Comment on above: Order Comment: 414-2 Performed By: #### L 500.4050, L506.1000, L501.9985, L501.7900, L503.0105, L501.5200, L100.0100 ####[facility] [address] [place], [place], [id number] Eosinophil percentageOrdered By: Carla Crane on 07-15-2024 Eosinophils/100 WBC (Bld) 9.4 % High 0-5 [facility] Erythrocyte distribution wid th ratioOrdered By: Carla Crane on 07-15-2024 Erythrocyte distribution width (RBC) [Ratio] 12.8 % 11.6-14.6 [facility] Erythrocyte distribution wid th standard deviationOrdered By: Carla Crane on 07-15-2024 Erythrocyte distribution width (RBC) [Entitic vol] 45.4 fL High 35.1-43.9 [facility] Estimated glomerular filtrat ion rate (GFR) AmericanOrdered By: Carla Crane on 07-15-2024 Estimated GFR (MDRD) Amer 77 mL/min >60 [facility] Comment on above: GFR Calc Glomerular filtration rate ( GFR) estimationOrdered By: Carla Crane on 07-15-2024 Estimated GFR (MDRD) Non-Af Amer 64 mL/min >60 [facility] Comment on above: Non- GFR Calc Glucose measurementOrdered B y: Carla Crane on 07-15-2024 Glucose [Mass/Vol] 103 mg/dL Normal 74-106 [facility] Comment on above: Fasting Glucose resu lt from 100 to 125 mg/dL suggests IMPAIRED HOMEOSTASIS per A.D.A. criteria. Order Comment: 414-2 Result Comment: Fast ing Glucose result from 100 to 125 mg/dLsuggests IMPAIRED HOMEOSTASIS per A.D.A. criteria. Performed By: #### L 500.4050, L506.1000, L501.9985, L501.7900, L503.0105, L501.5200, L100.0100 ####[facility] [address] [place], [address] Hematocrit Auto (Bld) [Volum e fraction]Ordered By: Carla Crane on 07-15-2024 Hematocrit (Bld) [Volume fraction] 45.8 % 40-54 [facility] Hemoglobin A1con 07-15-2024 HbA1c (Bld) [Mass fraction] 5.6 % Normal 3.8-5.6 [facility] Comment on above: Order Comment: 414-2 Result Comment: Norm al < 5.7 % Prediabetic 5.7 - 6.4 % Diabetic >or= 6.5 % Please note range changes. Performed By: #### L 500.4050, L506.1000, L501.9985, L501.7900, L503.0105, L501.5200, L100.0100 ####[facility] [address] [place], [address] Hemoglobin A1c percentageOrd ered By: Carla Crane on 07-15-2024 HbA1c (Bld) [Mass fraction] 5.6 % 3.8-5.6 [facility] Comment on above: Normal < 5.7 % Predi abetic 5.7 - 6.4 % Diabetic >or= 6.5 % Please note range changes. Hemoglobin measurementOrdere d By: Carla Crane on 07-15-2024 Hemoglobin (Bld) [Mass/Vol] 14.8 g/dL 13.0-16.5 [facility] Immature granulocytes/100 WB C Auto (Bld)Ordered By: Carla Crane on 07-15-2024 Immature granulocytes/100 WBC (Bld) 0.400 % 0.0-0.9 [facility] Comment on above: IG% - Immature Granu locytes (promyelocytes, myelocytes and metamyelocytes) > 1% indicates that a LEFT SHIFT is Present. Lymphocytes Auto (Unsp spec) [#/Vol]Ordered By: Carla Crane on 07-15-2024 Lymphocytes (Bld) [#/Vol] 1.38 10*3/uL 0.83-4.51 [facility] Lymphocytes/100 WBC Auto (Un sp spec)Ordered By: Carla Crane on 07-15-2024 Lymphocytes/100 WBC (Bld) 26.9 % 19-41 [facility] MCV (mean corpuscular volume ) determinationOrdered By: Carla Crane on 07-15-2024 MCV (RBC) [Entitic vol] 96.4 fL High 80-94 [facility] Magnesium measurementOrdered By: Carla Crane on 07-15-2024 Magnesium [Mass/Vol] 2.1 mg/dL Normal 1.6-2.6 [facility] Comment on above: Order Comment: 414-2 Performed By: #### L 500.4050, L506.1000, L501.9985, L501.7900, L503.0105, L501.5200, L100.0100 ####[facility] [address] [place], [place], [id number] Mean corpuscular hemoglobin (MCH) determinationOrdered By: Carla Crane on 07-15-2024 MCH (RBC) [Entitic mass] 31.2 pg 27.0-32.0 [facility] Mean corpuscular hemoglobin concentration (MCHC) determinationOrdered By: Carla Crane on 07-15-2024 MCHC (RBC) [Mass/Vol] 32.3 g/dL 32-36 [facility] Mean platelet volume determi nationOrdered By: Carla Crane on 07-15-2024 Platelet mean volume (Bld) [Entitic vol] 9.6 fL 6.2-12.0 [facility] Monocyte percentageOrdered B y: Carla Crane on 07-15-2024 Monocytes/100 WBC (Bld) 8.8 % 0-10 [facility] Neutrophil percentageOrdered By: Carla Crane on 07-15-2024 Neutrophils/100 WBC (Bld) 53.1 % 47-70 [facility] Nucleated red blood cell per centageOrdered By: Carla Crane on 07-15-2024 Nucleated RBC/100 WBC (Bld) [Ratio] 0 % 0-5 [facility] Platelet countOrdered By: Wilfredo Crane on 07-15-2024 Platelets (Bld) [#/Vol] 295 10*3/uL 150-450 [facility] Potassium measurementOrdered By: Carla Crane on 07-15-2024 Potassium [Moles/Vol] 3.8 mmol/L Normal 3.5-5.1 [facility] Comment on above: Order Comment: 414-2 Performed By: #### L 500.4050, L506.1000, L501.9985, L501.7900, L503.0105, L501.5200, L100.0100 ####[facility] [id number] [place], [place], [id number] RBC Auto (Bld) [#/Vol]Ordere d By: Carla Crane on 07-15-2024 RBC (Bld) [#/Vol] 4.75 10*6/uL 4.6-6.2 [facility] Serum anion gap measurementO rdered By: Carla Crane on 07-15-2024 Anion gap [Moles/Vol] 7 mmol/L 5-15 [facility] Serum globulin measurementOr dered By: Carla Crane on 07-15-2024 Globulin (S) [Mass/Vol] 4.1 g/dL Normal 2.2-4.2 [facility] Comment on above: Order Comment: 414-2 Performed By: #### L 500.4050, L506.1000, L501.9985, L501.7900, L503.0105, L501.5200, L100.0100 ####[facility] [id number] [place], [place], [id number] Serum or plasma alanine saul otransferase (ALT) measurementOrdered By: Carla Crane on 07-15-2024 ALT [Catalytic activity/Vol] 37 U/L Normal 16-61 [facility] Comment on above: Order Comment: 414-2 Performed By: #### L 500.4050, L506.1000, L501.9985, L501.7900, L503.0105, L501.5200, L100.0100 ####[facility] [id number] [place], [place], [id number] Serum or plasma albumin luis urement (mass/volume)Ordered By: Carla Crane on 07-15-2024 Albumin [Mass/Vol] 3.9 g/dL Normal 3.2-5.0 [facility] Comment on above: Order Comment: 414-2 Performed By: #### L 500.4050, L506.1000, L501.9985, L501.7900, L503.0105, L501.5200, L100.0100 ####[facility] [address] [place], [place], [id number] Serum or plasma alkaline kathleen sphatase measurementOrdered By: Carla Crane on 07-15-2024 ALP [Catalytic activity/Vol] 70 U/L 45-117 [facility] Serum or plasma calcium luis urement (mass/volume)Ordered By: Carla Crane on 07-15-2024 Calcium [Mass/Vol] 10.1 mg/dL 8.5-10.1 [facility] Serum or plasma creatinine m easurement (mass/volume)Ordered By: Carla Crane on 07-15-2024 Creatinine [Mass/Vol] 1.18 mg/dL Normal 0.70-1.30 [facility] Comment on above: The validity of the calculated GFR & GFRAA in patients over 70 years has not been determined. Clinical correlation is essential. Order Comment: 414-2 Result Comment: The validity of the calculated GFR GFRAA in patients over70 years has not been determined. Clinical correlation isessential. Performed By: #### L 500.4050, L506.1000, L501.9985, L501.7900, L503.0105, L501.5200, L100.0100 ####[facility] [address] [place], [address] Serum or plasma urea nitroge n measurement (mass/volume)Ordered By: Carla Crane on 07-15-2024 Urea nitrogen [Mass/Vol] 30 mg/dL High 7-18 [facility] Comment on above: Order Comment: 414-2 Performed By: #### L 500.4050, L506.1000, L501.9985, L501.7900, L503.0105, L501.5200, L100.0100 ####[facility] [address] [place], [address] Sodium levelOrdered By: Luca Crane on 07-15-2024 Sodium [Moles/Vol] 138 mmol/L Normal 136-145 [facility] Comment on above: Order Comment: 414-2 Performed By: #### L 500.4050, L506.1000, L501.9985, L501.7900, L503.0105, L501.5200, L100.0100 ####[facility] [address] [place], [address] Total proteinOrdered By: Ming Crane on 07-15-2024 Protein [Mass/Vol] 8.0 g/dL 6.4-8.2 [facility] Vitamin B12on 07-15-2024 Cobalamin (Vitamin B12) [Mass/Vol] 692 pg/mL Normal 211-911 [facility] Comment on above: Order Comment: 414-2 Performed By: #### L 500.4050, L506.1000, L501.9985, L501.7900, L503.0105, L501.5200, L100.0100 ####[facility] [address] [place], [place], [id number] Vitamin B12 measurementOrder ed By: Carla Crane on 07-15-2024 Cobalamin (Vitamin B12) [Mass/Vol] 692 pg/mL 211-911 [facility] Vitamin D,25 Hydroxyon 07-15 Vitamin D 25-OH 36.0 ng/mL Normal [facility] Comment on above: Order Comment: 414-2 Result Comment: Teri min D 25(OH) Status Range Deficiency <20 ng/mL (50nmol/L) Insufficiency 20 - 30 ng/mL (50 - 75 nmol/L) Sufficiency 30 - 100 ng/mL (75 - 250 nmol/L) Toxicity >100 ng/mL (>250 nmol/L) Performed By: #### L 500.4050, L506.1000, L501.9985, L501.7900, L503.0105, L501.5200, L100.0100 ####[facility] [address] [place], [place], [id number] White blood cell (WBC) count Ordered By: Carla Crane on 07-15-2024 WBC (Bld) [#/Vol] 5.1 10*3/uL 4.4-11.0 [facility] carBAMazepine [Mass/Vol]Orde red By: Carla Crane on 07-15-2024 Carbamazepine (Tegretol) Level 7.0 ug/mL 4.0-12.0 [facility] Basic Metabolic Profile (BMP )on 04-15-2024 BUN Normal 7-18 [facility] Comment on above: Result Comment: Canc elled via OM: Order cancelled - Patient discharged Performed By: #### L 100.0100, L500.2500 ####[facility] [address] [place], [address] BUN/CRE Normal 10-20 [facility] Comment on above: Result Comment: Canc elled via OM: Order cancelled - Patient discharged Performed By: #### L 100.0100, L500.2500 ####[facility] [address] [place], [address] CA,Total Normal 8.5-10.1 [facility] Comment on above: Result Comment: Canc elled via OM: Order cancelled - Patient discharged Performed By: #### L 100.0100, L500.2500 ####[facility] [address] [place], [address] CL Normal 98-107 [facility] Comment on above: Result Comment: Canc elled via OM: Order cancelled - Patient discharged Performed By: #### L 100.0100, L500.2500 ####[facility] [address] [place], [address] CO2 Normal 21.0-32.0 [facility] Comment on above: Result Comment: Canc elled via OM: Order cancelled - Patient discharged Performed By: #### L 100.0100, L500.2500 ####[facility] [address] [place], [address] CREAT,SERUM Normal 0.70-1.30 [facility] Comment on above: Result Comment: Canc elled via OM: Order cancelled - Patient discharged Performed By: #### L 100.0100, L500.2500 ####[facility] [address] [place], [address] EST GFR Normal >60 [facility] Comment on above: Result Comment: Canc elled via OM: Order cancelled - Patient discharged Performed By: #### L 100.0100, L500.2500 ####[facility] [address] [place], [address] EST GFR - AA Normal >60 [facility] Comment on above: Result Comment: Canc elled via OM: Order cancelled - Patient discharged Performed By: #### L 100.0100, L500.2500 ####[facility] [address] [place], [address] GAP Normal 5-15 [facility] Comment on above: Result Comment: Canc elled via OM: Order cancelled - Patient discharged Performed By: #### L 100.0100, L500.2500 ####[facility] [address] [place], [address] GLU Normal 74-106 [facility] Comment on above: Result Comment: Canc elled via OM: Order cancelled - Patient discharged Performed By: #### L 100.0100, L500.2500 ####[facility] [address] [place], [address] Potassium Normal 3.5-5.1 [facility] Comment on above: Result Comment: Canc elled via OM: Order cancelled - Patient discharged Performed By: #### L 100.0100, L500.2500 ####[facility] [address] [place], [address] Basic Metabolic Profile (BMP) Normal 136-145 [facility] Comment on above: Result Comment: Canc elled via OM: Order cancelled - Patient discharged Performed By: #### L 100.0100, L500.2500 ####[facility] [address] [place], [address] CBC W/Diff, Automatedon 10-2 Absolute Neut Normal 2.0-7.7 [facility] Comment on above: Result Comment: Canc elled via OM: Order cancelled - Patient discharged Performed By: #### L 100.0100, L500.2500 ####[facility] [address] [place], [address] HCT Normal 40-54 [facility] Comment on above: Result Comment: Canc elled via OM: Order cancelled - Patient discharged Performed By: #### L 100.0100, L500.2500 ####[facility] [address] [place], [address] HGB Normal 13.0-16.5 [facility] Comment on above: Result Comment: Canc elled via OM: Order cancelled - Patient discharged Performed By: #### L 100.0100, L500.2500 ####[facility] [address] [place], [address] MCH Normal 27.0-32.0 [facility] Comment on above: Result Comment: Canc elled via OM: Order cancelled - Patient discharged Performed By: #### L 100.0100, L500.2500 ####[facility] [address] [place], [address] MCHC Normal 32-36 [facility] Comment on above: Result Comment: Canc elled via OM: Order cancelled - Patient discharged Performed By: #### L 100.0100, L500.2500 ####[facility] [address] [place], [address] MCV Normal 80-94 [facility] Comment on above: Result Comment: Canc elled via OM: Order cancelled - Patient discharged Performed By: #### L 100.0100, L500.2500 ####[facility] [address] [place], [address] NEUT% Normal 47-70 [facility] Comment on above: Result Comment: Canc elled via OM: Order cancelled - Patient discharged Performed By: #### L 100.0100, L500.2500 ####[facility] [address] [place], [address] PLT Normal 150-450 [facility] Comment on above: Result Comment: Canc elled via OM: Order cancelled - Patient discharged Performed By: #### L 100.0100, L500.2500 ####[facility] [address] [place], [address] RBC Normal 4.6-6.2 [facility] Comment on above: Result Comment: Canc elled via OM: Order cancelled - Patient discharged Performed By: #### L 100.0100, L500.2500 ####[facility] [address] [place], [address] RDW CV Normal 11.6-14.6 [facility] Comment on above: Result Comment: Canc elled via OM: Order cancelled - Patient discharged Performed By: #### L 100.0100, L500.2500 ####[facility] [address] [place], [address] RDW SD Normal 35.1-43.9 [facility] Comment on above: Result Comment: Canc elled via OM: Order cancelled - Patient discharged Performed By: #### L 100.0100, L500.2500 ####[facility] [address] [place], [address] WBC Normal 4.4-11.0 [facility] Comment on above: Result Comment: Canc elled via OM: Order cancelled - Patient discharged Performed By: #### L 100.0100, L500.2500 ####[facility] [address] [place], [address] Basic Metabolic Profile (BMP )on 04-14-2024 BUN Normal 7-18 [facility] Comment on above: Result Comment: Canc elled via OM: Order cancelled - Patient discharged Performed By: #### L 100.0100, L500.2500 ####[facility] [address] [place], [address] BUN/CRE Normal 10-20 [facility] Comment on above: Result Comment: Canc elled via OM: Order cancelled - Patient discharged Performed By: #### L 100.0100, L500.2500 ####[facility] [address] [place], [address] CA,Total Normal 8.5-10.1 [facility] Comment on above: Result Comment: Canc elled via OM: Order cancelled - Patient discharged Performed By: #### L 100.0100, L500.2500 ####[facility] [address] [place], [address] CL Normal 98-107 [facility] Comment on above: Result Comment: Canc elled via OM: Order cancelled - Patient discharged Performed By: #### L 100.0100, L500.2500 ####[facility] [address] [place], [address] CO2 Normal 21.0-32.0 [facility] Comment on above: Result Comment: Canc elled via OM: Order cancelled - Patient discharged Performed By: #### L 100.0100, L500.2500 ####[facility] [address] [place], [address] CREAT,SERUM Normal 0.70-1.30 [facility] Comment on above: Result Comment: Canc elled via OM: Order cancelled - Patient discharged Performed By: #### L 100.0100, L500.2500 ####[facility] [address] [place], [address] EST GFR Normal >60 [facility] Comment on above: Result Comment: Canc elled via OM: Order cancelled - Patient discharged Performed By: #### L 100.0100, L500.2500 ####[facility] [address] [place], [address] EST GFR - AA Normal >60 [facility] Comment on above: Result Comment: Canc elled via OM: Order cancelled - Patient discharged Performed By: #### L 100.0100, L500.2500 ####[facility] [address] [place], [address] GAP Normal 5-15 [facility] Comment on above: Result Comment: Canc elled via OM: Order cancelled - Patient discharged Performed By: #### L 100.0100, L500.2500 ####[facility] [address] [place], [address] GLU Normal 74-106 [facility] Comment on above: Result Comment: Canc elled via OM: Order cancelled - Patient discharged Performed By: #### L 100.0100, L500.2500 ####[facility] [address] [place], [address] Potassium Normal 3.5-5.1 [facility] Comment on above: Result Comment: Canc elled via OM: Order cancelled - Patient discharged Performed By: #### L 100.0100, L500.2500 ####[facility] [address] [place], [address] Basic Metabolic Profile (BMP) Normal 136-145 [facility] Comment on above: Result Comment: Canc elled via OM: Order cancelled - Patient discharged Performed By: #### L 100.0100, L500.2500 ####[facility] [address] [place], [address] CBC W/Diff, Automatedon 10-2 Absolute Neut Normal 2.0-7.7 [facility] Comment on above: Result Comment: Canc elled via OM: Order cancelled - Patient discharged Performed By: #### L 100.0100, L500.2500 ####[facility] [address] [place], [address] HCT Normal 40-54 [facility] Comment on above: Result Comment: Canc elled via OM: Order cancelled - Patient discharged Performed By: #### L 100.0100, L500.2500 ####[facility] [address] [place], [address] HGB Normal 13.0-16.5 [facility] Comment on above: Result Comment: Canc elled via OM: Order cancelled - Patient discharged Performed By: #### L 100.0100, L500.2500 ####[facility] [address] [place], [address] MCH Normal 27.0-32.0 [facility] Comment on above: Result Comment: Canc elled via OM: Order cancelled - Patient discharged Performed By: #### L 100.0100, L500.2500 ####[facility] [address] [place], [address] MCHC Normal 32-36 [facility] Comment on above: Result Comment: Canc elled via OM: Order cancelled - Patient discharged Performed By: #### L 100.0100, L500.2500 ####[facility] [address] [place], [address] MCV Normal 80-94 [facility] Comment on above: Result Comment: Canc elled via OM: Order cancelled - Patient discharged Performed By: #### L 100.0100, L500.2500 ####[facility] [address] [place], [address] NEUT% Normal 47-70 [facility] Comment on above: Result Comment: Canc elled via OM: Order cancelled - Patient discharged Performed By: #### L 100.0100, L500.2500 ####[facility] [address] [place], [address] PLT Normal 150-450 [facility] Comment on above: Result Comment: Canc elled via OM: Order cancelled - Patient discharged Performed By: #### L 100.0100, L500.2500 ####[facility] [address] [place], [address] RBC Normal 4.6-6.2 [facility] Comment on above: Result Comment: Canc elled via OM: Order cancelled - Patient discharged Performed By: #### L 100.0100, L500.2500 ####[facility] [address] [place], [address] RDW CV Normal 11.6-14.6 [facility] Comment on above: Result Comment: Canc elled via OM: Order cancelled - Patient discharged Performed By: #### L 100.0100, L500.2500 ####[facility] [address] [place], [address] RDW SD Normal 35.1-43.9 [facility] Comment on above: Result Comment: Canc elled via OM: Order cancelled - Patient discharged Performed By: #### L 100.0100, L500.2500 ####[facility] [address] [place], [address] WBC Normal 4.4-11.0 [facility] Comment on above: Result Comment: Canc elled via OM: Order cancelled - Patient discharged Performed By: #### L 100.0100, L500.2500 ####[facility] [address] [place], [address] UA DIP, URINE (POC)on 2023 BILIRUBIN UA (POCT) Negative Negative [facility] CLARITY UA (POCT) Cloudy [facility] COLOR UA (POCT) Yellow [facility] GLUCOSE UA (POCT) Negative Negative mg/dL [facility] Hemoglobin Ql (U) Negative Negative [facility] Interpretation and review of laboratory results Abnormal [facility] KETONE UA (POCT) Trace Negative mg/dL [facility] LEUKOCYTES UA (POCT) Trace Abnormal Negative [facility] NITRITE UA (POCT) Positive Abnormal Negative [facility] PH UA (POCT) 6.0 4.5 - 8.0 [facility] Protein Ql (U) 100 mg/dL Abnormal Negative [facility] SPECIFIC GRAVITY UA (POCT) 1.025 1.005 - 1.030 [facility] UROBILINOGEN UA (POCT) 0.2 Malaika l E.U./dL [facility] Location:[facility], [address] [facility], [place], [place], [id number] [place] [address] POINT OF CARE [facility] Absolute lymphocyte countOrd ered By: Brody Maynard on 07-31-2023 Lymphocytes Auto (Unsp spec) [#/Vol] 0.39 10*3/uL 0.83-4.51 [facility] Automated lymphocyte count a s percentage of total leukocytesOrdered By: Brody Maynard on 07-31-2023 Lymphocytes/100 WBC Auto (Unsp spec) 7.1 % 19-41 [facility] Basophil percentageOrdered B y: Brody Maynard on 07-31-2023 Basophil percentage 12.6 g/dL 13.0-16.5 [facility] Basophil percentage 113 mg/dL 74-106 [facility] Basophil percentage 139 mmol/L 136-145 [facility] Basophil percentage 4.0 mmol/L 3.5-5.1 [facility] Basophil percentage 102 mmol/L 98-107 [facility] Basophils (Bld) [#/Vol] 5.5 10*3/uL 4.4-11.0 [facility] Basophils (Bld) [#/Vol] 4.7 10*3/uL 2.0-7.7 [facility] Basophils/100 WBC (Bld) 85.0 % 47-70 [facility] Basophils/100 WBC (Bld) 7.1 % 0-10 [facility] Basophils/100 WBC (Bld) 0.0 % 0-5 [facility] Basophils/100 WBC (Bld) 0.4 % 0-1 [facility] Determination of erythrocyte mean corpuscular volume (MCV)Ordered By: Brody Maynard on 07-31-2023 MCV (RBC) [Entitic vol] 98.4 fL 80-94 [facility] Erythrocyte distribution wid th ratioOrdered By: Brody Maynard on 07-31-2023 Erythrocyte distribution width (RBC) [Ratio] 13.2 % 11.6-14.6 [facility] Erythrocyte distribution wid th standard deviationOrdered By: Brody Maynard on 07-31-2023 Erythrocyte distribution width (RBC) [Entitic vol] 47.2 fL 35.1-43.9 [facility] Hematocrit Auto (Bld) [Volum e fraction]Ordered By: Brody Maynard on 07-31-2023 Hematocrit (Bld) [Volume fraction] 37.9 % 40-54 [facility] Immature granulocytes/100 WB C Auto (Bld)Ordered By: Brody Maynard on 07-31-2023 Immature granulocytes/100 WBC (Bld) 0.400 % 0.0-0.9 [facility] No Panel InformationOrdered By: Brody Maynard on 07-31-2023 32.7 pg 27.0-32.0 [facility] 33.2 g/dL 32-36 [facility] 284 K/mm3 150-450 [facility] 10.1 fl 6.2-12.0 [facility] 0 % 0-5 [facility] 77 mL/min >60 [facility] 93 mL/min >60 [facility] 60.90 ml/min [facility] 22.8 RATIO 10-20 [facility] 29.0 mmol/L 21.0-32.0 [facility] RBC Auto (Bld) [#/Vol]Ordere d By: Brody Maynard on 07-31-2023 RBC (Bld) [#/Vol] 3.85 10*6/uL 4.6-6.2 [facility] Serum or plasma calcium luis urement (mass/volume)Ordered By: Brody Maynard on 07-31-2023 Calcium [Mass/Vol] 8.6 mg/dL 8.5-10.1 [facility] Serum or plasma creatinine m easurement (mass/volume)Ordered By: Brody Maynard on 07-31-2023 Creatinine [Mass/Vol] 1.01 mg/dL 0.70-1.30 [facility] Serum or plasma urea nitroge n measurement (mass/volume)Ordered By: Brody Maynard on 07-31-2023 Urea nitrogen [Mass/Vol] 23 mg/dL 7-18 [facility] Thin prep Papanicolaou smear with manual screeningOrdered By: Brody Maynard on 07-31-2023 Thin prep Papanicolaou smear with manual screening 8 5-15 [facility] Absolute lymphocyte countOrd ered By: Андрей Ng on 07-30-2023 Lymphocytes Auto (Unsp spec) [#/Vol] 0.60 10*3/uL 0.83-4.51 [facility] Automated lymphocyte count a s percentage of total leukocytesOrdered By: Андрей Ng on 07-30-2023 Lymphocytes/100 WBC Auto (Unsp spec) 10.9 % 19-41 [facility] Base excessOrdered By: ED [place] OVIDER on 07-30-2023 Base excess Calc (BldV) [Moles/Vol] 2 mmol/L -1.0-3.5 [facility] Basophil percentageOrdered B y: Андрей Ng on 07-30-2023 Basophil percentage 0 SEEN /hpf 0-5 [facility] Basophil percentage 13.3 g/dL 13.0-16.5 [facility] Basophil percentage 114 mg/dL 74-106 [facility] Basophil percentage 138 mmol/L 136-145 [facility] Basophil percentage 4.2 mmol/L 3.5-5.1 [facility] Basophil percentage 102 mmol/L 98-107 [facility] Basophils (Bld) [#/Vol] 5.5 10*3/uL 4.4-11.0 [facility] Basophils (Bld) [#/Vol] 4.2 10*3/uL 2.0-7.7 [facility] Basophils/100 WBC (Bld) 76.5 % 47-70 [facility] Basophils/100 WBC (Bld) 10.7 % 0-10 [facility] Basophils/100 WBC (Bld) 0.5 % 0-5 [facility] Basophils/100 WBC (Bld) 0.9 % 0-1 [facility] Bilirubin Test strip Ql (U)O rdered By: Андрей Ng on 07-30-2023 Bilirubin Ql (U) Negative Negative [facility] CO2 (BldV) [Moles/Vol]Ordere d By: ED PROVIDER on 07-30-2023 CO2 [Moles/Vol] 29 mmol/L 23-33 [facility] Determination of erythrocyte mean corpuscular volume (MCV)Ordered By: Андрей Ng on 07-30-2023 MCV (RBC) [Entitic vol] 99.3 fL 80-94 [facility] Erythrocyte distribution wid th ratioOrdered By: Андрей Ng on 07-30-2023 Erythrocyte distribution width (RBC) [Ratio] 13.2 % 11.6-14.6 [facility] Erythrocyte distribution wid th standard deviationOrdered By: Андрей Ng on 07-30-2023 Erythrocyte distribution width (RBC) [Entitic vol] 48.3 fL 35.1-43.9 [facility] Hematocrit Auto (Bld) [Volum e fraction]Ordered By: Андрей Ng on 07-30-2023 Hematocrit (Bld) [Volume fraction] 40.4 % 40-54 [facility] Immature granulocytes/100 WB C Auto (Bld)Ordered By: Андрей Ng on 07-30-2023 Immature granulocytes/100 WBC (Bld) 0.500 % 0.0-0.9 [facility] Ketones Test strip Ql (U)Ord ered By: Андрей Ng on 07-30-2023 Ketones Ql (U) Negative Negative [facility] Mucus LM Ql (Urine sed)Order ed By: Андрей Ng on 07-30-2023 Mucus Ql (Urine sed) 0 SEEN /hpf [facility] Nitrite Test strip Ql (U)Ord ered By: Андрей Ng on 07-30-2023 Nitrite Ql (U) Negative Negative [facility] No Panel InformationOrdered By: Андрей Ng on 07-30-2023 0 SEEN /hpf 0-5 [facility] Influenzae A [facility] 32.7 pg 27.0-32.0 [facility] 32.9 g/dL 32-36 [facility] 262 K/mm3 150-450 [facility] 9.4 fl 6.2-12.0 [facility] 0 % 0-5 [facility] 67 mL/min >60 [facility] 81 mL/min >60 [facility] 55.00 ml/min [facility] 22.8 RATIO 10-20 [facility] 15 pg/mL 3.0-78.0 [facility] 29.0 mmol/L 21.0-32.0 [facility] 218.8 pg/mL 0-100 [facility] No Panel InformationOrdered By: ED PROVIDER on 07-30-2023 LASHAE [facility] Not entered [facility] Cannula [facility] 3.0 [facility] 28 mmol/L 22-26 [facility] 69 % 50-70 [facility] PCO2 venousOrdered By: ED [place] OVIDER on 07-30-2023 CO2 (BldV) [Partial pressure] 48.6 mm[Hg] 41-51 [facility] PO2 venousOrdered By: ED PRO VIDER on 07-30-2023 Oxygen (BldV) [Partial pressure] 38 mm[Hg] 25-40 [facility] Protein Test strip Ql (U)Ord ered By: Андрей Ng on 07-30-2023 Protein Ql (U) 30 mg/dl Negative [facility] RBC Auto (Bld) [#/Vol]Ordere d By: Андрей Ng on 07-30-2023 RBC (Bld) [#/Vol] 4.07 10*6/uL 4.6-6.2 [facility] Serum or plasma calcium luis urement (mass/volume)Ordered By: Андрей Ng on 07-30-2023 Calcium [Mass/Vol] 9.2 mg/dL 8.5-10.1 [facility] Serum or plasma creatinine m easurement (mass/volume)Ordered By: Андрей Ng on 07-30-2023 Creatinine [Mass/Vol] 1.14 mg/dL 0.70-1.30 [facility] Serum or plasma urea nitroge n measurement (mass/volume)Ordered By: Андрей Ng on 07-30-2023 Urea nitrogen [Mass/Vol] 26 mg/dL 7-18 [facility] Squamous epithelial cells de tection in urine sediment by light microscopyOrdered By: Андрей Ng on 07-30-2023 Epithelial cells.squamous LM Ql (Urine sed) 0 SEEN /hpf 0-5 [facility] Thin prep Papanicolaou smear with manual screeningOrdered By: Андрей Ng on 07-30-2023 Thin prep Papanicolaou smear with manual screening 7 5-15 [facility] [facility] Urine blood detectionOrdered By: Андрей Ng on 07-30-2023 RBC Ql (U) 10 /ul Negative [facility] Urine clarityOrdered By: Italia Ng on 07-30-2023 Clarity (U) Clear Clear [facility] Urine color determinationOrd ered By: Андрей Ng on 07-30-2023 Color (U) Yellow Yellow [facility] Urine glucose detectionOrder ed By: Андрей Ng on 07-30-2023 Glucose Ql (U) Normal mg/dl Normal [facility] Urine leukocyte esterase det ection by dipstickOrdered By: Андрей Ng on 07-30-2023 Leukocyte esterase Test strip Ql (U) Negative Negative [facility] Urine pHOrdered By: Андрей garland on 07-30-2023 pH (U) 7.0 [pH] 5.0 - 8.0 [facility] Urine sediment bacteria coun t by microscopy (number/high power field)Ordered By: Андрей Ng on 07-30-2023 Bacteria LM.HPF (Urine sed) [#/Area] 0 /[HPF] None Seen [facility] Urine specific gravity measu rementOrdered By: Андрей Ng on 07-30-2023 Specific gravity (U) [Rel density] 1.010 1.002-1.030 [facility] Urine urobilinogen measureme ntOrdered By: Андрей Ng on 07-30-2023 Urobilinogen Ql (U) Normal mg/dl Normal [facility] Venous blood pH measurementO rdered By: ED PROVIDER on 07-30-2023 pH (BldV) 7.36 [pH] 7.32-7.42 [facility] Basophil percentageOrdered B y: Андрей Cooley on 07-27-2023 Basophil percentage 12.8 g/dL 13.0-16.5 [facility] Basophil percentage 103 mg/dL 74-106 [facility] Basophil percentage 141 mmol/L 136-145 [facility] Basophil percentage 3.7 mmol/L 3.5-5.1 [facility] Basophil percentage 110 mmol/L 98-107 [facility] Basophils (Bld) [#/Vol] 6.8 10*3/uL 4.4-11.0 [facility] Determination of erythrocyte mean corpuscular volume (MCV)Ordered By: Андрей Cooley on 07-27-2023 MCV (RBC) [Entitic vol] 98.5 fL 80-94 [facility] Erythrocyte distribution wid th ratioOrdered By: Андрей Cooley on 07-27-2023 Erythrocyte distribution width (RBC) [Ratio] 13.1 % 11.6-14.6 [facility] Erythrocyte distribution wid th standard deviationOrdered By: Андрей Cooley on 07-27-2023 Erythrocyte distribution width (RBC) [Entitic vol] 46.7 fL 35.1-43.9 [facility] Hematocrit Auto (Bld) [Volum e fraction]Ordered By: Андрей Cooley on 07-27-2023 Hematocrit (Bld) [Volume fraction] 38.9 % 40-54 [facility] No Panel InformationOrdered By: Андрей Cooley on 07-27-2023 32.4 pg 27.0-32.0 [facility] 32.9 g/dL 32-36 [facility] 246 K/mm3 150-450 [facility] 10.1 fl 6.2-12.0 [facility] 56 mL/min >60 [facility] 68 mL/min >60 [facility] 26.5 RATIO 10-20 [facility] 29.0 mmol/L 21.0-32.0 [facility] RBC Auto (Bld) [#/Vol]Ordere d By: Андрей Cooley on 07-27-2023 RBC (Bld) [#/Vol] 3.95 10*6/uL 4.6-6.2 [facility] Serum or plasma calcium luis urement (mass/volume)Ordered By: Андрей Cooley on 07-27-2023 Calcium [Mass/Vol] 9.5 mg/dL 8.5-10.1 [facility] Serum or plasma creatinine m easurement (mass/volume)Ordered By: Андрей Cooley on 07-27-2023 Creatinine [Mass/Vol] 1.32 mg/dL 0.70-1.30 [facility] Serum or plasma urea nitroge n measurement (mass/volume)Ordered By: Андрей Cooley on 07-27-2023 Urea nitrogen [Mass/Vol] 35 mg/dL 7-18 [facility] Thin prep Papanicolaou smear with manual screeningOrdered By: Андрей Cooley on 07-27-2023 Thin prep Papanicolaou smear with manual screening 2 5-15 [facility] Absolute lymphocyte countOrd ered By: Андрей Cooley on 07-25-2023 Lymphocytes Auto (Unsp spec) [#/Vol] 1.22 10*3/uL 0.83-4.51 [facility] Automated lymphocyte count a s percentage of total leukocytesOrdered By: Андрей Cooley on 07-25-2023 Lymphocytes/100 WBC Auto (Unsp spec) 17.6 % 19-41 [facility] Basophil percentageOrdered B y: Андрей Cooley on 07-25-2023 Basophil percentage 14.3 g/dL 13.0-16.5 [facility] Basophil percentage 126 mg/dL 74-106 [facility] Basophil percentage 138 mmol/L 136-145 [facility] Basophil percentage 3.5 mmol/L 3.5-5.1 [facility] Basophil percentage 105 mmol/L 98-107 [facility] Basophils (Bld) [#/Vol] 6.9 10*3/uL 4.4-11.0 [facility] Basophils (Bld) [#/Vol] 4.9 10*3/uL 2.0-7.7 [facility] Basophils/100 WBC (Bld) 70.5 % 47-70 [facility] Basophils/100 WBC (Bld) 10.0 % 0-10 [facility] Basophils/100 WBC (Bld) 0.7 % 0-5 [facility] Basophils/100 WBC (Bld) 0.9 % 0-1 [facility] Determination of erythrocyte mean corpuscular volume (MCV)Ordered By: Андрей Cooley on 07-25-2023 MCV (RBC) [Entitic vol] 95.2 fL 80-94 [facility] Erythrocyte distribution wid th ratioOrdered By: Андрей Cooley on 07-25-2023 Erythrocyte distribution width (RBC) [Ratio] 12.7 % 11.6-14.6 [facility] Erythrocyte distribution wid th standard deviationOrdered By: Андрей Cooley on 07-25-2023 Erythrocyte distribution width (RBC) [Entitic vol] 44.9 fL 35.1-43.9 [facility] Hematocrit Auto (Bld) [Volum e fraction]Ordered By: Андрей Cooley on 07-25-2023 Hematocrit (Bld) [Volume fraction] 41.9 % 40-54 [facility] Immature granulocytes/100 WB C Auto (Bld)Ordered By: Андрей Cooley on 07-25-2023 Immature granulocytes/100 WBC (Bld) 0.300 % 0.0-0.9 [facility] No Panel InformationOrdered By: Андрей Cooley on 07-25-2023 32.5 pg 27.0-32.0 [facility] 34.1 g/dL 32-36 [facility] 245 K/mm3 150-450 [facility] 9.7 fl 6.2-12.0 [facility] 0 % 0-5 [facility] 62 mL/min >60 [facility] 75 mL/min >60 [facility] 39.28 ml/min [facility] 13.2 RATIO 10-20 [facility] 25.0 mmol/L 21.0-32.0 [facility] RBC Auto (Bld) [#/Vol]Ordere d By: Андрей Cooley on 07-25-2023 RBC (Bld) [#/Vol] 4.40 10*6/uL 4.6-6.2 [facility] Serum or plasma calcium luis urement (mass/volume)Ordered By: Андрей Cooley on 07-25-2023 Calcium [Mass/Vol] 9.3 mg/dL 8.5-10.1 [facility] Serum or plasma creatinine m easurement (mass/volume)Ordered By: Андрей Cooley on 07-25-2023 Creatinine [Mass/Vol] 1.21 mg/dL 0.70-1.30 [facility] Serum or plasma urea nitroge n measurement (mass/volume)Ordered By: Андрйе Cooley on 07-25-2023 Urea nitrogen [Mass/Vol] 16 mg/dL 7-18 [facility] Thin prep Papanicolaou smear with manual screeningOrdered By: Андрей Cooley on 07-25-2023 Thin prep Papanicolaou smear with manual screening 8 5-15 [facility] Absolute lymphocyte countOrd ered By: Raul Melchor on 07-24-2023 Lymphocytes Auto (Unsp spec) [#/Vol] 1.14 10*3/uL 0.83-4.51 [facility] Automated lymphocyte count a s percentage of total leukocytesOrdered By: Raul Melchor on 07-24-2023 Lymphocytes/100 WBC Auto (Unsp spec) 16.0 % 19-41 [facility] Basophil percentageOrdered B y: Raul Melchor on 07-24-2023 Basophils/100 WBC (Bld) 1.0 % 0-1 [facility] Chloride [Moles/Vol] 103 mmol/L 98-107 [facility] Eosinophils/100 WBC (Bld) 1.1 % 0-5 [facility] Glucose [Mass/Vol] 134 mg/dL 74-106 [facility] Comment on above: Fasting Glucose resu lt greater than or equal to 126 mg/dL suggests DIABETES MELLITUS per A.D.A. criteria. Hemoglobin (Bld) [Mass/Vol] 16.2 g/dL 13.0-16.5 [facility] Monocytes/100 WBC (Bld) 7.3 % 0-10 [facility] Neutrophils (Bld) [#/Vol] 5.3 10*3/uL 2.0-7.7 [facility] Neutrophils/100 WBC (Bld) 74.0 % 47-70 [facility] Potassium [Moles/Vol] 3.8 mmol/L 3.5-5.1 [facility] Comment on above: Moderate Hemolysis, Result may be falsely increased. Sodium [Moles/Vol] 139 mmol/L 136-145 [facility] WBC (Bld) [#/Vol] 7.1 10*3/uL 4.4-11.0 [facility] Determination of erythrocyte mean corpuscular volume (MCV)Ordered By: Raul Melchor on 07-24-2023 MCV (RBC) [Entitic vol] 94.8 fL 80-94 [facility] Erythrocyte distribution wid th ratioOrdered By: Raul Melchor on 07-24-2023 Erythrocyte distribution width (RBC) [Ratio] 12.8 % 11.6-14.6 [facility] Erythrocyte distribution wid th standard deviationOrdered By: Raul Melchor on 07-24-2023 Erythrocyte distribution width (RBC) [Entitic vol] 44.3 fL 35.1-43.9 [facility] Hematocrit Auto (Bld) [Volum e fraction]Ordered By: Raul Melchor on 07-24-2023 Hematocrit (Bld) [Volume fraction] 47.4 % 40-54 [facility] Immature granulocytes/100 WB C Auto (Bld)Ordered By: Raul Melchor on 07-24-2023 Immature granulocytes/100 WBC (Bld) 0.600 % 0.0-0.9 [facility] Comment on above: IG% - Immature Granu locytes (promyelocytes, myelocytes and metamyelocytes) > 1% indicates that a LEFT SHIFT is Present. Laboratory - Chemistry and C hemistry - challengeOrdered By: Raul Melchor on 07-24-2023 CO2 [Moles/Vol] 28.0 mmol/L 21.0-32.0 [facility] Urea nitrogen/Creatinine [Mass ratio] 14.1 mg/mg 10-20 [facility] Laboratory - Hematology and Cell countsOrdered By: Raul Melchor on 07-24-2023 MCH (RBC) [Entitic mass] 32.4 pg 27.0-32.0 [facility] MCHC (RBC) [Mass/Vol] 34.2 g/dL 32-36 [facility] Nucleated RBC/100 WBC (Bld) [Ratio] 0 % 0-5 [facility] Platelets (Bld) [#/Vol] 285 10*3/uL 150-450 [facility] No Panel InformationOrdered By: Raul Melchor on 07-24-2023 Estimated Creatinine Clearance Calc 48.70 ml/min [facility] Estimated GFR (MDRD) Amer 71 mL/min >60 [facility] Comment on above: GFR Calc Estimated GFR (MDRD) Non-Af Amer 58 mL/min >60 [facility] Comment on above: Non- GFR Calc Platelet mean volume Ye-Ec ker (Bld) [Entitic vol]Ordered By: Raul Melchor on 07-24-2023 Platelet mean volume (Bld) [Entitic vol] 9.8 fL 6.2-12.0 [facility] RBC Auto (Bld) [#/Vol]Ordere d By: Raul Melchor on 07-24-2023 RBC (Bld) [#/Vol] 5.00 10*6/uL 4.6-6.2 [facility] Serum or plasma calcium luis urement (mass/volume)Ordered By: Raul Melchor on 07-24-2023 Calcium [Mass/Vol] 9.8 mg/dL 8.5-10.1 [facility] Serum or plasma creatinine m easurement (mass/volume)Ordered By: Raul Melchor on 07-24-2023 Creatinine [Mass/Vol] 1.28 mg/dL 0.70-1.30 [facility] Comment on above: The validity of the calculated GFR & GFRAA in patients over 70 years has not been determined. Clinical correlation is essential. Serum or plasma urea nitroge n measurement (mass/volume)Ordered By: Raul Melchor on 07-24-2023 Urea nitrogen [Mass/Vol] 18 mg/dL 7-18 [facility] Thin prep Papanicolaou smear with manual screeningOrdered By: Raul Melchor on 07-24-2023 Thin prep Papanicolaou smear with manual screening 8 5-15 [facility] UAon 07-10-2023 Color (U) Yellow Normal [facility] ([place]) Comment on above: Performed By: #### U A #### [address] [address] Glucose (U) [Mass/Vol] Negative Normal Negative [facility] ([place]) Comment on above: Performed By: #### U A #### [address] [address] Ketones Ql (U) Negative Normal Neg-Trace [facility] ([place]) Comment on above: Performed By: #### U A #### [address] [address] UA Appear Clear Normal Clear [facility] ([place]) Comment on above: Performed By: #### U A #### [address] [address] UA Blood Negative Normal Neg-Trace [facility] ([place]) Comment on above: Performed By: #### U A #### [address] [address] UA Leuk Est Negative Normal Negative [facility] ([place]) Comment on above: Performed By: #### U A #### [address] [address] UA Nitrite Negative Normal Negative [facility] ([place]) Comment on above: Performed By: #### U A #### [place] [address] UA pH 5.5 Normal 5.0 - 8.0 [facility] ([place]) Comment on above: Performed By: #### U A #### [place] [address] UA Protein 30 mg/dL Normal Negative [facility] ([place]) Comment on above: Performed By: #### U A #### [place] [address] UA Spec Grav 1.020 Normal 1.006-1.029 [facility] ([place]) Comment on above: Performed By: #### U A #### [place] [address] UA Specimen Type Void Normal [facility] ([place]) Comment on above: Performed By: #### U A #### [place] [address] UA Urobilinogen 0.2 E.U./dL Normal 0.2-1.0 [facility] ([place]) Comment on above: Performed By: #### U A #### [place] [address] Urobilinogen (U) [Mass/Vol] Negative Normal Neg-Trace [facility] ([place]) Comment on above: Performed By: #### U A #### [place] [address] Absolute lymphocyte countOrd ered By: Daija Morton on 06-14-2023 Lymphocytes Auto (Unsp spec) [#/Vol] 1.09 10*3/uL 0.83-4.51 [facility] Basophil percentageOrdered B y: Daija Morton on 06-14-2023 Basophil percentage 108 mg/dL 74-106 [facility] Basophil percentage 139 mmol/L 136-145 [facility] Basophil percentage 4.2 mmol/L 3.5-5.1 [facility] Basophil percentage 104 mmol/L 98-107 [facility] Basophils (Bld) [#/Vol] 6.5 10*3/uL 4.4-11.0 [facility] Basophils (Bld) [#/Vol] 4.7 10*3/uL 2.0-7.7 [facility] Basophils/100 WBC (Bld) 1.4 % 0-1 [facility] Basophils/100 WBC (Bld) 72.2 % 47-70 [facility] Basophils/100 WBC (Bld) 2.0 % 0-5 [facility] Chloride [Moles/Vol] 104 mmol/L 98-107 [facility] Eosinophils/100 WBC (Bld) 2.0 % 0-5 [facility] Glucose [Mass/Vol] 108 mg/dL 74-106 [facility] Comment on above: Fasting Glucose resu lt from 100 to 125 mg/dL suggests IMPAIRED HOMEOSTASIS per A.D.A. criteria. Neutrophils (Bld) [#/Vol] 4.7 10*3/uL 2.0-7.7 [facility] Neutrophils/100 WBC (Bld) 72.2 % 47-70 [facility] Potassium [Moles/Vol] 4.2 mmol/L 3.5-5.1 [facility] Sodium [Moles/Vol] 139 mmol/L 136-145 [facility] WBC (Bld) [#/Vol] 6.5 10*3/uL 4.4-11.0 [facility] Blood erythrocytes count (nu mber/volume)Ordered By: Daija Morton on 06-14-2023 RBC (Bld) [#/Vol] 4.73 10*6/uL 4.6-6.2 [facility] Blood hemoglobin measurement (mass/volume)Ordered By: Daija Morton on 06-14-2023 Hemoglobin (Bld) [Mass/Vol] 15.8 g/dL 13.0-16.5 [facility] Blood lymphocytes/100 leukoc ytesOrdered By: Daija Morton on 06-14-2023 Lymphocytes/100 WBC (Bld) 16.8 % 19-41 [facility] Blood monocytes/100 leukocyt esOrdered By: Daija Morton on 06-14-2023 Monocytes/100 WBC (Bld) 7.1 % 0-10 [facility] Blood platelet mean volumeOr dered By: Daija Morton on 06-14-2023 Platelet mean volume (Bld) [Entitic vol] 9.9 fL 6.2-12.0 [facility] Determination of erythrocyte mean corpuscular volume (MCV)Ordered By: Daija Morton on 06-14-2023 MCV (RBC) [Entitic vol] 96.6 fL 80-94 [facility] Hematocrit Auto (Bld) [Volum e fraction]Ordered By: Daija Morton on 06-14-2023 Hematocrit (Bld) [Volume fraction] 45.7 % 40-54 [facility] Laboratory - Chemistry and C hemistry - challengeOrdered By: Daija Morton on 06-14-2023 CO2 [Moles/Vol] 30.0 mmol/L 21.0-32.0 [facility] Urea nitrogen/Creatinine [Mass ratio] 16.1 mg/mg 10-20 [facility] Laboratory - Hematology and Cell countsOrdered By: Daija Morton on 06-14-2023 Erythrocyte distribution width (RBC) [Entitic vol] 46.5 fL 35.1-43.9 [facility] Erythrocyte distribution width (RBC) [Ratio] 13.1 % 11.6-14.6 [facility] Immature granulocytes/100 WBC (Bld) 0.500 % 0.0-0.9 [facility] Comment on above: IG% - Immature Granu locytes (promyelocytes, myelocytes and metamyelocytes) > 1% indicates that a LEFT SHIFT is Present. MCH (RBC) [Entitic mass] 33.4 pg 27.0-32.0 [facility] Nucleated RBC/100 WBC (Bld) [Ratio] 0 % 0-5 [facility] MCHC Auto (RBC) [Mass/Vol]Or dered By: Daija Morton on 06-14-2023 MCHC (RBC) [Mass/Vol] 34.6 g/dL 32-36 [facility] No Panel InformationOrdered By: Daija Morton on 06-14-2023 Estimated GFR (MDRD) Amer 73 mL/min >60 [facility] Comment on above: GFR Calc Estimated GFR (MDRD) Non-Af Amer 61 mL/min >60 [facility] Comment on above: Non- GFR Calc 33.4 pg 27.0-32.0 [facility] 13.1 % 11.6-14.6 [facility] 46.5 fl 35.1-43.9 [facility] 0.500 % 0.0-0.9 [facility] 0 % 0-5 [facility] 61 mL/min >60 [facility] 73 mL/min >60 [facility] 16.1 RATIO 10-20 [facility] 30.0 mmol/L 21.0-32.0 [facility] Platelets bldOrdered By: Nemesio Morton on 06-14-2023 Platelets (Bld) [#/Vol] 285 10*3/uL 150-450 [facility] Serum or plasma calcium luis urement (mass/volume)Ordered By: Daija Morton on 06-14-2023 Calcium [Mass/Vol] 9.8 mg/dL 8.5-10.1 [facility] Serum or plasma creatinine m easurement (mass/volume)Ordered By: Daija Morton on 06-14-2023 Creatinine [Mass/Vol] 1.24 mg/dL 0.70-1.30 [facility] Comment on above: The validity of the calculated GFR & GFRAA in patients over 70 years has not been determined. Clinical correlation is essential. Serum or plasma urea nitroge n measurement (mass/volume)Ordered By: Daija Morton on 06-14-2023 Urea nitrogen [Mass/Vol] 20 mg/dL 7-18 [facility] Thin prep Papanicolaou smear with manual screeningOrdered By: Daija Morton on 06-14-2023 Thin prep Papanicolaou smear with manual screening 5 5-15 [facility] Basophil percentageOrdered B y: Андрей Cooley on 05-19-2023 Basophil percentage 100 mg/dL 74-106 [facility] Basophil percentage 6.5 g/dL 6.4-8.2 [facility] Basophil percentage 0.30 mg/dL 0.20-1.00 [facility] Basophil percentage 141 mmol/L 136-145 [facility] Basophil percentage 3.6 mmol/L 3.5-5.1 [facility] Basophil percentage 109 mmol/L 98-107 [facility] Basophils (Bld) [#/Vol] 6.2 10*3/uL 4.4-11.0 [facility] Bilirubin [Mass/Vol] 0.30 mg/dL 0.20-1.00 [facility] Comment on above: For patients on eltr ombopag therapy, use of Dim[employer] [place] TBIL is not recommended. Chloride [Moles/Vol] 109 mmol/L 98-107 [facility] Glucose [Mass/Vol] 100 mg/dL 74-106 [facility] Comment on above: Fasting Glucose resu lt from 100 to 125 mg/dL suggests IMPAIRED HOMEOSTASIS per A.D.A. criteria. Potassium [Moles/Vol] 3.6 mmol/L 3.5-5.1 [facility] Protein [Mass/Vol] 6.5 g/dL 6.4-8.2 [facility] Sodium [Moles/Vol] 141 mmol/L 136-145 [facility] WBC (Bld) [#/Vol] 6.2 10*3/uL 4.4-11.0 [facility] Blood erythrocytes count (nu mber/volume)Ordered By: Андрей Cooley on 05-19-2023 RBC (Bld) [#/Vol] 4.24 10*6/uL 4.6-6.2 [facility] Blood hemoglobin measurement (mass/volume)Ordered By: Андрей Cooley on 05-19-2023 Hemoglobin (Bld) [Mass/Vol] 13.8 g/dL 13.0-16.5 [facility] Blood platelet mean volumeOr dered By: Андрей Cooley on 05-19-2023 Platelet mean volume (Bld) [Entitic vol] 9.9 fL 6.2-12.0 [facility] Determination of erythrocyte mean corpuscular volume (MCV)Ordered By: Андрей Cooley on 05-19-2023 MCV (RBC) [Entitic vol] 99.5 fL 80-94 [facility] Hematocrit Auto (Bld) [Volum e fraction]Ordered By: Андрей Cooley on 05-19-2023 Hematocrit (Bld) [Volume fraction] 42.2 % 40-54 [facility] Laboratory - Chemistry and C hemistry - challengeOrdered By: Андрей Cooley on 05-19-2023 ALP [Catalytic activity/Vol] 72 U/L 45-117 [facility] ALT [Catalytic activity/Vol] 33 U/L 16- [facility] CO2 [Moles/Vol] 29.0 mmol/L 21.0-32.0 [facility] Globulin (S) [Mass/Vol] 3.1 g/dL 2.2-4.2 [facility] Urea nitrogen/Creatinine [Mass ratio] 18.6 mg/mg 10-20 [facility] - Hematology and Cell countsOrdered By: Андрей Cooley on 05-19-2023 Erythrocyte distribution width (RBC) [Entitic vol] 52.4 fL 35.1-43.9 [facility] Erythrocyte distribution width (RBC) [Ratio] 14.3 % 11.6-14.6 [facility] MCH (RBC) [Entitic mass] 32.5 pg 27.0-32.0 [facility] MCHC Auto (RBC) [Mass/Vol]Or dered By: Андрей Cooley on 05-19-2023 MCHC (RBC) [Mass/Vol] 32.7 g/dL 32-36 [facility] No Panel InformationOrdered By: Андрей Cooley on 05-19-2023 Estimated GFR (MDRD) Amer 78 mL/min >60 [facility] Comment on above: GFR Calc Estimated GFR (MDRD) Non-Af Amer 64 mL/min >60 [facility] Comment on above: Non- GFR Calc 32.5 pg 27.0-32.0 [facility] 14.3 % 11.6-14.6 [facility] 52.4 fl 35.1-43.9 [facility] 64 mL/min >60 [facility] 78 mL/min >60 [facility] 18.6 RATIO 04-07 [facility] 3.1 g/dL 2.2-4.2 [facility] 72 U/L 45-117 [facility] 33 U/L 16- [facility] 29.0 mmol/L 21.0-32.0 [facility] Platelets bldOrdered By: Italia Cooley on 05-19-2023 Platelets (Bld) [#/Vol] 284 10*3/uL 150-450 [facility] Serum or plasma albumin luis urement (mass/volume)Ordered By: Андрей Cooley on 05-19-2023 Albumin [Mass/Vol] 3.4 g/dL 3.2-5.0 [facility] Serum or plasma albumin/glob ulin mass ratioOrdered By: Андрей Cooley on 05-19-2023 Albumin/Globulin [Mass ratio] 1.1 {ratio} 0.9-2.4 [facility] Serum or plasma calcium luis urement (mass/volume)Ordered By: Андрей Cooley on 05-19-2023 Calcium [Mass/Vol] 8.7 mg/dL 8.5-10.1 [facility] Serum or plasma creatinine m easurement (mass/volume)Ordered By: Андрей Cooley on 05-19-2023 Creatinine [Mass/Vol] 1.18 mg/dL 0.70-1.30 [facility] Comment on above: The validity of the calculated GFR & GFRAA in patients over 70 years has not been determined. Clinical correlation is essential. Serum or plasma urea nitroge n measurement (mass/volume)Ordered By: Андрей Cooley on 05-19-2023 Urea nitrogen [Mass/Vol] 22 mg/dL 7-18 [facility] Thin prep Papanicolaou smear with manual screeningOrdered By: Андрей Cooley on 05-19-2023 Thin prep Papanicolaou smear with manual screening 17 U/L 15-37 [facility] Thin prep Papanicolaou smear with manual screening 3 5-15 [facility] Basophil percentageOrdered B y: Андрей Cooley on 04-19-2023 Basophil percentage 92 mg/dL 74-106 [facility] Basophil percentage 6.8 g/dL 6.4-8.2 [facility] Basophil percentage 0.20 mg/dL 0.20-1.00 [facility] Basophil percentage 140 mmol/L 136-145 [facility] Basophil percentage 4.0 mmol/L 3.5-5.1 [facility] Basophil percentage 105 mmol/L 98-107 [facility] Basophils (Bld) [#/Vol] 6.2 10*3/uL 4.4-11.0 [facility] Bilirubin [Mass/Vol] 0.20 mg/dL 0.20-1.00 [facility] Comment on above: For patients on eltr ombopag therapy, use of [employer] [place] TBIL is not recommended. Chloride [Moles/Vol] 105 mmol/L 98-107 [facility] Glucose [Mass/Vol] 92 mg/dL 74-106 [facility] Potassium [Moles/Vol] 4.0 mmol/L 3.5-5.1 [facility] Protein [Mass/Vol] 6.8 g/dL 6.4-8.2 [facility] Sodium [Moles/Vol] 140 mmol/L 136-145 [facility] WBC (Bld) [#/Vol] 6.2 10*3/uL 4.4-11.0 [facility] Blood erythrocytes count (nu mber/volume)Ordered By: Андрей Cooley on 04-19-2023 RBC (Bld) [#/Vol] 4.26 10*6/uL 4.6-6.2 [facility] Blood hemoglobin measurement (mass/volume)Ordered By: Андрей Cooley on 04-19-2023 Hemoglobin (Bld) [Mass/Vol] 13.6 g/dL 13.0-16.5 [facility] Blood platelet mean volumeOr dered By: Андрей Cooley on 04-19-2023 Platelet mean volume (Bld) [Entitic vol] 9.7 fL 6.2-12.0 [facility] Determination of erythrocyte mean corpuscular volume (MCV)Ordered By: Андрей Cooley on 04-19-2023 MCV (RBC) [Entitic vol] 99.5 fL 80-94 [facility] Hematocrit Auto (Bld) [Volum e fraction]Ordered By: Андрей Cooley on 04-19-2023 Hematocrit (Bld) [Volume fraction] 42.4 % 40-54 [facility] - Chemistry and C hemistry - challengeOrdered By: Андрей Cooley on 04-19-2023 ALP [Catalytic activity/Vol] 82 U/L 45-117 [facility] ALT [Catalytic activity/Vol] 27 U/L 16-61 [facility] CO2 [Moles/Vol] 29.0 mmol/L 21.0-32.0 [facility] Globulin (S) [Mass/Vol] 3.5 g/dL 2.2-4.2 [facility] Urea nitrogen/Creatinine [Mass ratio] 22.2 mg/mg 10-20 [facility] - Hematology and Cell countsOrdered By: Андрей Cooley on 04-19-2023 Erythrocyte distribution width (RBC) [Entitic vol] 51.8 fL 35.1-43.9 [facility] Erythrocyte distribution width (RBC) [Ratio] 14.4 % 11.6-14.6 [facility] MCH (RBC) [Entitic mass] 31.9 pg 27.0-32.0 [facility] MCHC Auto (RBC) [Mass/Vol]Or dered By: Андрей Cooley on 04-19-2023 MCHC (RBC) [Mass/Vol] 32.1 g/dL 32-36 [facility] No Panel InformationOrdered By: Андрей Cooley on 04-19-2023 Estimated GFR (MDRD) Amer 86 mL/min >60 [facility] Comment on above: GFR Calc Estimated GFR (MDRD) Non-Af Amer 71 mL/min >60 [facility] Comment on above: Non- GFR Calc 31.9 pg 27.0-32.0 [facility] 14.4 % 11.6-14.6 [facility] 51.8 fl 35.1-43.9 [facility] 71 mL/min >60 [facility] 86 mL/min >60 [facility] 22.2 RATIO 10-20 [facility] 3.5 g/dL 2.2-4.2 [facility] 82 U/L 45-117 [facility] 27 U/L 16-61 [facility] 29.0 mmol/L 21.0-32.0 [facility] Platelets bldOrdered By: Italia Cooley on 04-19-2023 Platelets (Bld) [#/Vol] 382 10*3/uL 150-450 [facility] Serum or plasma albumin luis urement (mass/volume)Ordered By: Андрей Cooley on 04-19-2023 Albumin [Mass/Vol] 3.3 g/dL 3.2-5.0 [facility] Serum or plasma albumin/glob ulin mass ratioOrdered By: Андрей Cooley on 04-19-2023 Albumin/Globulin [Mass ratio] 0.9 {ratio} 0.9-2.4 [facility] Serum or plasma calcium luis urement (mass/volume)Ordered By: Андрей Cooley on 04-19-2023 Calcium [Mass/Vol] 9.1 mg/dL 8.5-10.1 [facility] Serum or plasma creatinine m easurement (mass/volume)Ordered By: Андрей Cooley on 04-19-2023 Creatinine [Mass/Vol] 1.08 mg/dL 0.70-1.30 [facility] Comment on above: The validity of the calculated GFR & GFRAA in patients over 70 years has not been determined. Clinical correlation is essential. Serum or plasma urea nitroge n measurement (mass/volume)Ordered By: Андрей Cooley on 04-19-2023 Urea nitrogen [Mass/Vol] 24 mg/dL 7-18 [facility] Thin prep Papanicolaou smear with manual screeningOrdered By: Андрей Cooley on 04-19-2023 Thin prep Papanicolaou smear with manual screening 19 U/L 15-37 [facility] Thin prep Papanicolaou smear with manual screening 6 5-15 [facility] Whole blood hemoglobin A1c/t otal hemoglobin ratio (mass fraction)Ordered By: Андрей Cooley on 04-17-2023 HbA1c (Bld) [Mass fraction] 5.2 % 3.8-5.6 [facility] Comment on above: Normal < 5.7 % Predi abetic 5.7 - 6.4 % Diabetic >or= 6.5 % Please note range changes. Basophil percentageOrdered B y: Андрей Cooley on 04-12-2023 Basophil percentage 92 mg/dL 74-106 [facility] Basophil percentage 6.4 g/dL 6.4-8.2 [facility] Basophil percentage 0.10 mg/dL 0.20-1.00 [facility] Basophil percentage 139 mmol/L 136-145 [facility] Basophil percentage 4.1 mmol/L 3.5-5.1 [facility] Basophil percentage 107 mmol/L 98-107 [facility] Basophils (Bld) [#/Vol] 7.8 10*3/uL 4.4-11.0 [facility] Bilirubin [Mass/Vol] 0.10 mg/dL 0.20-1.00 [facility] Comment on above: For patients on eltr ombopag therapy, use of Dimension [place] TBIL is not recommended. Chloride [Moles/Vol] 107 mmol/L 98-107 [facility] Glucose [Mass/Vol] 92 mg/dL 74-106 [facility] Potassium [Moles/Vol] 4.1 mmol/L 3.5-5.1 [facility] Protein [Mass/Vol] 6.4 g/dL 6.4-8.2 [facility] Sodium [Moles/Vol] 139 mmol/L 136-145 [facility] WBC (Bld) [#/Vol] 7.8 10*3/uL 4.4-11.0 [facility] Blood erythrocytes count (nu mber/volume)Ordered By: Андрей Cooley on 04-12-2023 RBC (Bld) [#/Vol] 4.04 10*6/uL 4.6-6.2 [facility] Blood hemoglobin measurement (mass/volume)Ordered By: Андрей Cooley on 04-12-2023 Hemoglobin (Bld) [Mass/Vol] 13.2 g/dL 13.0-16.5 [facility] Blood platelet mean volumeOr dered By: Андрей Cooley on 04-12-2023 Platelet mean volume (Bld) [Entitic vol] 9.7 fL 6.2-12.0 [facility] Determination of erythrocyte mean corpuscular volume (MCV)Ordered By: Андрей Cooley on 04-12-2023 MCV (RBC) [Entitic vol] 97.5 fL 80-94 [facility] Hematocrit Auto (Bld) [Volum e fraction]Ordered By: Андрей Cooley on 04-12-2023 Hematocrit (Bld) [Volume fraction] 39.4 % 40-54 [facility] - Chemistry and C hemistry - challengeOrdered By: Андрей Cooley on 04-12-2023 ALP [Catalytic activity/Vol] 88 U/L 45-117 [facility] ALT [Catalytic activity/Vol] 32 U/L 16-61 [facility] CO2 [Moles/Vol] 26.0 mmol/L 21.0-32.0 [facility] Globulin (S) [Mass/Vol] 3.4 g/dL 2.2-4.2 [facility] Urea nitrogen/Creatinine [Mass ratio] 20.2 mg/mg - [facility] - Hematology and Cell countsOrdered By: Андрей Cooley on 04-12-2023 Erythrocyte distribution width (RBC) [Entitic vol] 49.3 fL 35.1-43.9 [facility] Erythrocyte distribution width (RBC) [Ratio] 13.8 % 11.6-14.6 [facility] MCH (RBC) [Entitic mass] 32.7 pg 27.0-32.0 [facility] MCHC Auto (RBC) [Mass/Vol]Or dered By: Андрей Cooley on 04-12-2023 MCHC (RBC) [Mass/Vol] 33.5 g/dL 32-36 [facility] No Panel InformationOrdered By: Андрей Cooley on 04-12-2023 Estimated GFR (MDRD) Amer 77 mL/min >60 [facility] Comment on above: GFR Calc Estimated GFR (MDRD) Non-Af Amer 64 mL/min >60 [facility] Comment on above: Non- GFR Calc 32.7 pg 27.0-32.0 [facility] 13.8 % 11.6-14.6 [facility] 49.3 fl 35.1-43.9 [facility] 64 mL/min >60 [facility] 77 mL/min >60 [facility] 20.2 RATIO 04-07 [facility] 3.4 g/dL 2.2-4.2 [facility] 88 U/L 45-117 [facility] 32 U/L 16-61 [facility] 26.0 mmol/L 21.0-32.0 [facility] Platelets bldOrdered By: Italia Cooley on 04-12-2023 Platelets (Bld) [#/Vol] 385 10*3/uL 150-450 [facility] Serum or plasma albumin luis urement (mass/volume)Ordered By: Андрей Cooley on 04-12-2023 Albumin [Mass/Vol] 3.0 g/dL 3.2-5.0 [facility] Serum or plasma albumin/glob ulin mass ratioOrdered By: Андрей Cooley on 04-12-2023 Albumin/Globulin [Mass ratio] 0.9 {ratio} 0.9-2.4 [facility] Serum or plasma calcium luis urement (mass/volume)Ordered By: Андрей Cooley on 04-12-2023 Calcium [Mass/Vol] 8.7 mg/dL 8.5-10.1 [facility] Serum or plasma creatinine m easurement (mass/volume)Ordered By: Андрей Cooley on 04-12-2023 Creatinine [Mass/Vol] 1.19 mg/dL 0.70-1.30 [facility] Comment on above: The validity of the calculated GFR & GFRAA in patients over 70 years has not been determined. Clinical correlation is essential. Serum or plasma urea nitroge n measurement (mass/volume)Ordered By: Андрей Cooley on 04-12-2023 Urea nitrogen [Mass/Vol] 24 mg/dL 7-18 [facility] Thin prep Papanicolaou smear with manual screeningOrdered By: Андрей Cooley on 04-12-2023 Thin prep Papanicolaou smear with manual screening 21 U/L 15-37 [facility] Thin prep Papanicolaou smear with manual screening 6 5-15 [facility] Basophil percentageOrdered B y: Андрей Cooley on 04-05-2023 Basophil percentage 105 mg/dL 74-106 [facility] Basophil percentage 6.7 g/dL 6.4-8.2 [facility] Basophil percentage 0.20 mg/dL 0.20-1.00 [facility] Basophil percentage 139 mmol/L 136-145 [facility] Basophil percentage 3.9 mmol/L 3.5-5.1 [facility] Basophil percentage 105 mmol/L 98-107 [facility] Basophils (Bld) [#/Vol] 5.8 10*3/uL 4.4-11.0 [facility] Bilirubin [Mass/Vol] 0.20 mg/dL 0.20-1.00 [facility] Comment on above: For patients on eltr ombopag therapy, use of Dimension [place] TBIL is not recommended. Chloride [Moles/Vol] 105 mmol/L 98-107 [facility] Glucose [Mass/Vol] 105 mg/dL 74-106 [facility] Comment on above: Fasting Glucose resu lt from 100 to 125 mg/dL suggests IMPAIRED HOMEOSTASIS per A.D.A. criteria. Potassium [Moles/Vol] 3.9 mmol/L 3.5-5.1 [facility] Protein [Mass/Vol] 6.7 g/dL 6.4-8.2 [facility] Sodium [Moles/Vol] 139 mmol/L 136-145 [facility] WBC (Bld) [#/Vol] 5.8 10*3/uL 4.4-11.0 [facility] Blood erythrocytes count (nu mber/volume)Ordered By: Андрей Cooley on 04-05-2023 RBC (Bld) [#/Vol] 4.40 10*6/uL 4.6-6.2 [facility] Blood hemoglobin measurement (mass/volume)Ordered By: Андрей Cooley on 04-05-2023 Hemoglobin (Bld) [Mass/Vol] 13.9 g/dL 13.0-16.5 [facility] Blood platelet mean volumeOr dered By: Андрей Cooley on 04-05-2023 Platelet mean volume (Bld) [Entitic vol] 9.5 fL 6.2-12.0 [facility] Determination of erythrocyte mean corpuscular volume (MCV)Ordered By: Андрей Cooley on 04-05-2023 MCV (RBC) [Entitic vol] 96.8 fL 80-94 [facility] Hematocrit Auto (Bld) [Volum e fraction]Ordered By: Андрей Cooley on 04-05-2023 Hematocrit (Bld) [Volume fraction] 42.6 % 40-54 [facility] - Chemistry and C hemistry - challengeOrdered By: Андрей Cooley on 04-05-2023 ALP [Catalytic activity/Vol] 60 U/L 45-117 [facility] ALT [Catalytic activity/Vol] 54 U/L 16-61 [facility] CO2 [Moles/Vol] 28.0 mmol/L 21.0-32.0 [facility] Globulin (S) [Mass/Vol] 3.8 g/dL 2.2-4.2 [facility] Urea nitrogen/Creatinine [Mass ratio] 22.0 mg/mg 10- [facility] - Hematology and Cell countsOrdered By: Андрей Cooley on 04-05-2023 Erythrocyte distribution width (RBC) [Entitic vol] 50.1 fL 35.1-43.9 [facility] Erythrocyte distribution width (RBC) [Ratio] 14.0 % 11.6-14.6 [facility] MCH (RBC) [Entitic mass] 31.6 pg 27.0-32.0 [facility] MCHC Auto (RBC) [Mass/Vol]Or dered By: Андрей Cooley on 04-05-2023 MCHC (RBC) [Mass/Vol] 32.6 g/dL 32-36 [facility] No Panel InformationOrdered By: Андрей Cooley on 04-05-2023 Estimated GFR (MDRD) Amer 85 mL/min >60 [facility] Comment on above: GFR Calc Estimated GFR (MDRD) Non-Af Amer 70 mL/min >60 [facility] Comment on above: Non- GFR Calc 31.6 pg 27.0-32.0 [facility] 14.0 % 11.6-14.6 [facility] 50.1 fl 35.1-43.9 [facility] 70 mL/min >60 [facility] 85 mL/min >60 [facility] 22.0 RATIO 04-07 [facility] 3.8 g/dL 2.2-4.2 [facility] 60 U/L 45-117 [facility] 54 U/L 16-61 [facility] 28.0 mmol/L 21.0-32.0 [facility] Platelets bldOrdered By: Italia Cooley on 04-05-2023 Platelets (Bld) [#/Vol] 399 10*3/uL 150-450 [facility] Serum or plasma albumin luis urement (mass/volume)Ordered By: Андрей Cooley on 04-05-2023 Albumin [Mass/Vol] 2.9 g/dL 3.2-5.0 [facility] Serum or plasma albumin/glob ulin mass ratioOrdered By: Андрей Cooley on 04-05-2023 Albumin/Globulin [Mass ratio] 0.8 {ratio} 0.9-2.4 [facility] Serum or plasma calcium luis urement (mass/volume)Ordered By: Андрей Cooley on 04-05-2023 Calcium [Mass/Vol] 9.3 mg/dL 8.5-10.1 [facility] Serum or plasma creatinine m easurement (mass/volume)Ordered By: Андрей Cooley on 04-05-2023 Creatinine [Mass/Vol] 1.09 mg/dL 0.70-1.30 [facility] Comment on above: The validity of the calculated GFR & GFRAA in patients over 70 years has not been determined. Clinical correlation is essential. Serum or plasma urea nitroge n measurement (mass/volume)Ordered By: Андрей Cooley on 04-05-2023 Urea nitrogen [Mass/Vol] 24 mg/dL 7-18 [facility] Thin prep Papanicolaou smear with manual screeningOrdered By: Андрей Cooley on 04-05-2023 Thin prep Papanicolaou smear with manual screening 38 U/L 15-37 [facility] Thin prep Papanicolaou smear with manual screening 6 5-15 [facility] Absolute lymphocyte countOrd ered By: Frankie Galindo on 04-04-2023 Lymphocytes Auto (Unsp spec) [#/Vol] 1.49 10*3/uL 0.83-4.51 [facility] Basophil percentageOrdered B y: Frankie Galindo on 04-04-2023 Basophil percentage 101 mg/dL 74-106 [facility] Basophil percentage 136 mmol/L 136-145 [facility] Basophil percentage 3.9 mmol/L 3.5-5.1 [facility] Basophil percentage 103 mmol/L 98-107 [facility] Basophils (Bld) [#/Vol] 6.3 10*3/uL 4.4-11.0 [facility] Basophils (Bld) [#/Vol] 4.1 10*3/uL 2.0-7.7 [facility] Basophils/100 WBC (Bld) 1.1 % 0-1 [facility] Basophils/100 WBC (Bld) 64.4 % 47-70 [facility] Basophils/100 WBC (Bld) 3.3 % 0-5 [facility] Chloride [Moles/Vol] 103 mmol/L 98-107 [facility] Eosinophils/100 WBC (Bld) 3.3 % 0-5 [facility] Glucose [Mass/Vol] 101 mg/dL 74-106 [facility] Comment on above: Fasting Glucose resu lt from 100 to 125 mg/dL suggests IMPAIRED HOMEOSTASIS per A.D.A. criteria. Neutrophils (Bld) [#/Vol] 4.1 10*3/uL 2.0-7.7 [facility] Neutrophils/100 WBC (Bld) 64.4 % 47-70 [facility] Potassium [Moles/Vol] 3.9 mmol/L 3.5-5.1 [facility] Sodium [Moles/Vol] 136 mmol/L 136-145 [facility] WBC (Bld) [#/Vol] 6.3 10*3/uL 4.4-11.0 [facility] Blood erythrocytes count (nu mber/volume)Ordered By: Frankie Galindo on 04-04-2023 RBC (Bld) [#/Vol] 4.82 10*6/uL 4.6-6.2 [facility] Blood hemoglobin measurement (mass/volume)Ordered By: Frankie Galindo on 04-04-2023 Hemoglobin (Bld) [Mass/Vol] 15.1 g/dL 13.0-16.5 [facility] Blood lymphocytes/100 leukoc ytesOrdered By: Frankie Galindo on 04-04-2023 Lymphocytes/100 WBC (Bld) 23.6 % 19-41 [facility] Blood monocytes/100 leukocyt esOrdered By: Frankie Galindo on 04-04-2023 Monocytes/100 WBC (Bld) 6.3 % 0-10 [facility] Blood platelet mean volumeOr dered By: Frankie Galindo on 04-04-2023 Platelet mean volume (Bld) [Entitic vol] 9.3 fL 6.2-12.0 [facility] Determination of erythrocyte mean corpuscular volume (MCV)Ordered By: Frankie Galindo on 04-04-2023 MCV (RBC) [Entitic vol] 96.7 fL 80-94 [facility] Hematocrit Auto (Bld) [Volum e fraction]Ordered By: Frankie Galindo on 04-04-2023 Hematocrit (Bld) [Volume fraction] 46.6 % 40-54 [facility] - Chemistry and C hemistry - challengeOrdered By: Frankie Galindo on 04-04-2023 CO2 [Moles/Vol] 29.0 mmol/L 21.0-32.0 [facility] Urea nitrogen/Creatinine [Mass ratio] 20.3 mg/mg 10-20 [facility] - Hematology and Cell countsOrdered By: Frankie Galindo on 04-04-2023 Erythrocyte distribution width (RBC) [Entitic vol] 48.9 fL 35.1-43.9 [facility] Erythrocyte distribution width (RBC) [Ratio] 13.6 % 11.6-14.6 [facility] Immature granulocytes/100 WBC (Bld) 1.300 % 0.0-0.9 [facility] Comment on above: IG% - Immature Granu locytes (promyelocytes, myelocytes and metamyelocytes) > 1% indicates that a LEFT SHIFT is Present. MCH (RBC) [Entitic mass] 31.3 pg 27.0-32.0 [facility] Nucleated RBC/100 WBC (Bld) [Ratio] 0 % 0-5 [facility] MCHC Auto (RBC) [Mass/Vol]Or dered By: Frankie Galindo on 04-04-2023 MCHC (RBC) [Mass/Vol] 32.4 g/dL 32-36 [facility] No Panel InformationOrdered By: Frankie Galindo on 04-04-2023 Estimated Creatinine Clearance Calc 45.80 ml/min [facility] Estimated GFR (MDRD) Amer 71 mL/min >60 [facility] Comment on above: GFR Calc Estimated GFR (MDRD) Non-Af Amer 58 mL/min >60 [facility] Comment on above: Non- GFR Calc 31.3 pg 27.0-32.0 [facility] 13.6 % 11.6-14.6 [facility] 48.9 fl 35.1-43.9 [facility] 1.300 % 0.0-0.9 [facility] 0 % 0-5 [facility] 58 mL/min >60 [facility] 71 mL/min >60 [facility] 45.80 ml/min [facility] 20.3 RATIO 04-07 [facility] 29.0 mmol/L 21.0-32.0 [facility] Platelets bldOrdered By: Sebastien Galindo on 04-04-2023 Platelets (Bld) [#/Vol] 379 10*3/uL 150-450 [facility] Serum or plasma calcium luis urement (mass/volume)Ordered By: Frankie Galindo on 04-04-2023 Calcium [Mass/Vol] 9.7 mg/dL 8.5-10.1 [facility] Serum or plasma creatinine m easurement (mass/volume)Ordered By: Frankie Galindo on 04-04-2023 Creatinine [Mass/Vol] 1.28 mg/dL 0.70-1.30 [facility] Comment on above: The validity of the calculated GFR & GFRAA in patients over 70 years has not been determined. Clinical correlation is essential. Serum or plasma urea nitroge n measurement (mass/volume)Ordered By: Frankie Galindo on 04-04-2023 Urea nitrogen [Mass/Vol] 26 mg/dL 01-03 [facility] Thin prep Papanicolaou smear with manual screeningOrdered By: Frankie Galindo on 04-04-2023 Thin prep Papanicolaou smear with manual screening 4 10-31 [facility] Basophil percentageOrdered B y: Frankie Galindo on 04-02-2023 Basophil percentage 2.6 mg/dL 2.5-4.9 [facility] - Chemistry and C hemistry - challengeOrdered By: Frankie Galindo on 04-02-2023 Magnesium [Mass/Vol] 2.0 mg/dL 1.6-2.6 [facility] No Panel InformationOrdered By: Frankie Galindo on 04-02-2023 2.0 mg/dL 1.6-2.6 [facility] Basophil percentageOrdered B y: Celia Toribio on 04-01-2023 Basophil percentage 6.5 g/dL 6.4-8.2 [facility] Basophil percentage 0.30 mg/dL 0.20-1.00 [facility] Bilirubin [Mass/Vol] 0.30 mg/dL 0.20-1.00 [facility] Comment on above: For patients on eltr ombopag therapy, use of Dimension [place] TBIL is not recommended. Protein [Mass/Vol] 6.5 g/dL 6.4-8.2 [facility] Laboratory - Chemistry and C hemistry - challengeOrdered By: Celia Toribio on 04-01-2023 ALP [Catalytic activity/Vol] 57 U/L 45-117 [facility] ALT [Catalytic activity/Vol] 21 U/L [facility] Globulin (S) [Mass/Vol] 3.9 g/dL 2.2-4.2 [facility] No Panel InformationOrdered By: Celia Toribio on 04-01-2023 3.9 g/dL 2.2-4.2 [facility] 57 U/L 45- [facility] 21 U/L [facility] Serum or plasma albumin luis urement (mass/volume)Ordered By: Celia Toribio on 04-01-2023 Albumin [Mass/Vol] 2.6 g/dL 3.2-5.0 [facility] Serum or plasma albumin/glob ulin mass ratioOrdered By: Celia Toribio on 04-01-2023 Albumin/Globulin [Mass ratio] 0.7 {ratio} 0.9-2.4 [facility] Thin prep Papanicolaou smear with manual screeningOrdered By: Celia Toribio on 04-01-2023 Thin prep Papanicolaou smear with manual screening 12 U/L 15-37 [facility] Absolute lymphocyte countOrd ered By: Huber Alvarado on 03-30-2023 Lymphocytes Auto (Unsp spec) [#/Vol] 0.93 10*3/uL 0.83-4.51 [facility] Bacteria identified Cx Nom ( U)Ordered By: Huber Alvarado on 03-30-2023 Culture, urine ESBL Escherichia coli [facility] Basophil percentageOrdered B y: Huber Alvarado on 03-30-2023 Basophil percentage 1.4 mmol/L 0.4-2.0 [facility] Lactate [Moles/Vol] 1.4 mmol/L 0.4-2.0 [facility] Basophil percentage 25-50 SEEN /hpf 0-5 [facility] Basophils/100 WBC (Bld) 0.7 % 0-1 [facility] Chloride [Moles/Vol] 99 mmol/L 98-107 [facility] Eosinophils/100 WBC (Bld) 0.0 % 0-5 [facility] Glucose [Mass/Vol] 104 mg/dL 74-106 [facility] Comment on above: Fasting Glucose resu lt from 100 to 125 mg/dL suggests IMPAIRED HOMEOSTASIS per A.D.A. criteria. Neutrophils (Bld) [#/Vol] 7.9 10*3/uL 2.0-7.7 [facility] Neutrophils/100 WBC (Bld) 79.2 % 47-70 [facility] Potassium [Moles/Vol] 4.0 mmol/L 3.5-5.1 [facility] Sodium [Moles/Vol] 134 mmol/L 136-145 [facility] WBC (Bld) [#/Vol] 10.0 10*3/uL 4.4-11.0 [facility] Bilirubin Test strip Ql (U)O rdered By: Huber Alvarado on 03-30-2023 Bilirubin Ql (U) Negative Negative [facility] Blood erythrocytes count (nu mber/volume)Ordered By: Huber Alvarado on 03-30-2023 RBC (Bld) [#/Vol] 4.81 10*6/uL 4.6-6.2 [facility] Blood hemoglobin measurement (mass/volume)Ordered By: Huber Alvarado on 03-30-2023 Hemoglobin (Bld) [Mass/Vol] 15.4 g/dL 13.0-16.5 [facility] Blood lymphocytes/100 leukoc ytesOrdered By: Huber Alvarado on 03-30-2023 Lymphocytes/100 WBC (Bld) 9.3 % 19-41 [facility] Blood monocytes/100 leukocyt esOrdered By: Huber Alvarado on 03-30-2023 Monocytes/100 WBC (Bld) 10.5 % 0-10 [facility] Blood platelet mean volumeOr dered By: Huber Alvarado on 03-30-2023 Platelet mean volume (Bld) [Entitic vol] 9.8 fL 6.2-12.0 [facility] Culture, urineOrdered By: Baldo Chan on 03-30-2023 Bacteria identified Cx Nom (U) ESBL Escherichia coli [facility] Bacteria identified Cx Nom (U) ESBL Escherichia coli [facility] Determination of erythrocyte mean corpuscular volume (MCV)Ordered By: Huber Alvarado on 03-30-2023 MCV (RBC) [Entitic vol] 97.5 fL 80-94 [facility] Hematocrit Auto (Bld) [Volum e fraction]Ordered By: Huber Alvarado on 03-30-2023 Hematocrit (Bld) [Volume fraction] 46.9 % 40-54 [facility] Ketones Test strip Ql (U)Ord ered By: Huber Alvarado on 03-30-2023 Ketones Ql (U) Negative Negative [facility] - Chemistry and C hemistry - challengeOrdered By: Huber Alvarado on 03-30-2023 CO2 [Moles/Vol] 31.0 mmol/L 21.0-32.0 [facility] Urea nitrogen/Creatinine [Mass ratio] 16.0 mg/mg 10-20 [facility] - Hematology and Cell countsOrdered By: Huber Alvarado on 03-30-2023 Erythrocyte distribution width (RBC) [Entitic vol] 50.3 fL 35.1-43.9 [facility] Erythrocyte distribution width (RBC) [Ratio] 13.9 % 11.6-14.6 [facility] Immature granulocytes/100 WBC (Bld) 0.300 % 0.0-0.9 [facility] Comment on above: IG% - Immature Granu locytes (promyelocytes, myelocytes and metamyelocytes) > 1% indicates that a LEFT SHIFT is Present. MCH (RBC) [Entitic mass] 32.0 pg 27.0-32.0 [facility] Nucleated RBC/100 WBC (Bld) [Ratio] 0 % 0-5 [facility] - Microbiology an d Antimicrobial susceptibilityOrdered By: Huber Alvarado on 03-30-2023 Bacteria identified Cx Nom (Bld) No growth in 5 days. [facility]CHC Auto (RBC) [Mass/Vol]Or dered By: Huber Alvarado on 03-30-2023 [facility] (RBC) [Mass/Vol] 32.8 g/dL 32-36 [facility] Mucus LM Ql (Urine sed)Order ed By: Huber Alvarado on 10-12-2023 Mucus Ql (Urine sed) 0 SEEN /hpf [facility] Nitrite Test strip Ql (U)Ord ered By: Huber Alvarado on 03-30-2023 Nitrite Ql (U) Negative Negative [facility] No Panel InformationOrdered By: Huber Alvarado on 03-30-2023 No growth in 5 days. [facility] Estimated GFR (MDRD) Amer 77 mL/min >60 [facility] Comment on above: GFR Calc Estimated GFR (MDRD) Non-Af Amer 64 mL/min >60 [facility] Comment on above: Non- GFR Calc Platelets bldOrdered By: Pet er Christiano on 03-30-2023 Platelets (Bld) [#/Vol] 276 10*3/uL 150-450 [facility] Protein Test strip Ql (U)Ord ered By: Huber Alvarado on 03-30-2023 Protein Ql (U) 100 mg/dl Negative [facility] Serum or plasma calcium luis urement (mass/volume)Ordered By: Huber Alvarado on 03-30-2023 Calcium [Mass/Vol] 9.8 mg/dL 8.5-10.1 [facility] Serum or plasma creatinine m easurement (mass/volume)Ordered By: Huber Alvarado on 03-30-2023 Creatinine [Mass/Vol] 1.19 mg/dL 0.70-1.30 [facility] Comment on above: The validity of the calculated GFR & GFRAA in patients over 70 years has not been determined. Clinical correlation is essential. Serum or plasma urea nitroge n measurement (mass/volume)Ordered By: Huber Alvarado on 03-30-2023 Urea nitrogen [Mass/Vol] 19 mg/dL 7-18 [facility] Squamous epithelial cells de tection in urine sediment by light microscopyOrdered By: Huber Alvarado on 03-30-2023 Epithelial cells.squamous LM Ql (Urine sed) 0-5 SEEN /hpf 0-5 [facility] Thin prep Papanicolaou smear with manual screeningOrdered By: Huber Alvarado on 03-30-2023 Thin prep Papanicolaou smear with manual screening 4 5-15 [facility] Urine blood detectionOrdered By: Huber Alvarado on 03-30-2023 RBC Ql (U) 50 /ul Negative [facility] RBC Ql (U) 0 SEEN /hpf 0-5 [facility] Urine clarityOrdered By: Beck Alvarado on 03-30-2023 Clarity (U) Sl. Cloudy Clear [facility] Urine color determinationOrd ered By: Huber Alvarado on 03-30-2023 Color (U) Yellow Yellow [facility] Urine glucose detectionOrder ed By: Huber Alvarado on 03-30-2023 Glucose Ql (U) Normal mg/dl Normal [facility] Urine leukocyte esterase det ection by dipstickOrdered By: Huber Alvarado on 03-30-2023 Leukocyte esterase Test strip Ql (U) 500 /ul Negative [facility] Urine pHOrdered By: Huber billinsgley on 03-30-2023 pH (U) 6.0 [pH] 5.0 - 8.0 [facility] Urine sediment bacteria coun t by microscopy (number/high power field)Ordered By: Huber Alvarado on 03-30-2023 Bacteria LM.HPF (Urine sed) [#/Area] 3 /[HPF] None Seen [facility] Urine specific gravity measu rementOrdered By: Huber Alvarado on 03-30-2023 Specific gravity (U) [Rel density] 1.020 1.002-1.030 [facility] Urobilinogen Auto test strip Ql (U)Ordered By: Huber Alvarado on 03-30-2023 Urobilinogen Ql (U) Normal mg/dl Normal [facility] INR in Blood by Coagulation assayOrdered By: Jaden Jauregui on 02-18-2023 INR Coag (Bld) [Relative time] 0.9 {INR} [facility] - CoagulationOrde red By: Jaden Jauregui on 02-18-2023 PT Coag (PPP) [Time] 12.4 s 11.7-14.[address] [facility] [address] ABD/PELVIS W/ IV CONTRAST ONLYon [...] 01/25/2022. HISTORY: ORDERING SYSTEM PROVIDED HISTORY: Partial appendectomy". Reason for Exam: pain FINDINGS: Visualized lung [...] 10/22/2022 10:33:36 PM Ordering Provider: PRIYANKA Betts [facility] ([place]) .Auto Diffon 10-22-2022 Basophil, Absolute 0.1 10 3/mcL Normal 0.0-0.2 [facility] ([place]) Comment on above: Performed By: #### A DIFF, LIP, MDW, CMP, GFR, ANEU, CBC #### [address] [address] Basophils/100 WBC (Bld) 0.8 % Normal 0.0-2.5 [facility] ([place]) Comment on above: Performed By: #### A DIFF, LIP, MDW, CMP, GFR, ANEU, CBC #### [address] [address] Eosinophil, Absolute 0.0 10 3/mcL Normal 0.0-0.4 [facility] ([place]) Comment on above: Performed By: #### A DIFF, LIP, MDW, CMP, GFR, ANEU, CBC #### [address] [address] Eosinophils/100 WBC (Bld) 0.3 % Normal 0.0-7.0 [facility] ([place]) Comment on above: Performed By: #### A DIFF, LIP, MDW, CMP, GFR, ANEU, CBC #### [address] [address] Lymphocyte, Absolute 0.9 10 3/mcL Normal 0.8-3.9 [facility] ([place]) Comment on above: Performed By: #### A DIFF, LIP, MDW, CMP, GFR, ANEU, CBC #### [address] [address] Lymphocytes/100 WBC (Bld) 8.1 % Low 10.0-50.0 [facility] ([place]) Comment on above: Performed By: #### A DIFF, LIP, MDW, CMP, GFR, ANEU, CBC #### [address] [address] Monocyte, Absolute 0.7 10 3/mcL Normal 0.2-1.0 [facility] ([place]) Comment on above: Performed By: #### A DIFF, LIP, MDW, CMP, GFR, ANEU, CBC #### [address] [address] Monocytes/100 WBC (Bld) 6.8 % Normal 1.7-13.0 [facility] ([place]) Comment on above: Performed By: #### A DIFF, LIP, MDW, CMP, GFR, ANEU, CBC #### [address] [address] Neutrophils/100 WBC (Bld) 84.0 % High 37.0-80.0 [facility] ([place]) Comment on above: Performed By: #### A DIFF, LIP, MDW, CMP, GFR, ANEU, CBC #### [address] [address] .GFRon 10-22-2022 GFR Non- 58 ml/min/1.73sqm Normal [facility] ([place]) Comment on above: Result Comment: GFR Population [...] MDW, CMP, GFR, ANEU, CBC #### [address] [address] GFR 71 ml/min/1.73sqm Normal [facility] ([place]) Comment on above: Result Comment: GFR Population [...] LIP, MDW, CMP, GFR, ANEU, CBC #### [place] [address] .MDWon 10-22-2022 Monocyte Distribution Width 24.33 High 0.00-20.00 [facility] ([place]) Comment on above: Result Comment: For adults in ED, MDW>20.0 may be associated with a higher risk of sepsis during the first 12hrs of hospital admission Performed By: #### A DIFF, LIP, MDW, CMP, GFR, ANEU, CBC #### [place] [address] .NEUABSon 10-22-2022 Neutrophil, Absolute 8.9 10 3/mcL High 2.9-6.2 [facility] ([place]) Comment on above: Performed By: #### A DIFF, LIP, MDW, CMP, GFR, ANEU, CBC #### [place] [address] CBCon 10-22-2022 Erythrocyte distribution width (RBC) [Ratio] 14.0 % Normal 11.5-14.5 [facility] ([place]) Comment on above: Performed By: #### A DIFF, LIP, MDW, CMP, GFR, ANEU, CBC #### [place] [address] Hematocrit (Bld) [Volume fraction] 38.9 % Low 42.0-52.0 [facility] ([place]) Comment on above: Performed By: #### A DIFF, LIP, MDW, CMP, GFR, ANEU, CBC #### [place] [address] Hgb 13.5 G/dL Low 14.0-18.0 [facility] ([place]) Comment on above: Performed By: #### A DIFF, LIP, MDW, CMP, GFR, ANEU, CBC #### [address] [address] MCH (RBC) [Entitic mass] 33.0 pg High 27.0-31.2 [facility] ([place]) Comment on above: Performed By: #### A DIFF, LIP, MDW, CMP, GFR, ANEU, CBC #### [place] [address] MCHC 34.8 G/dL Normal 31.8-35.4 [facility] ([place]) Comment on above: Performed By: #### A DIFF, LIP, MDW, CMP, GFR, ANEU, CBC #### [address] [address] MCV (RBC) [Entitic vol] 95.0 fL High 80.0-94.0 [facility] ([place]) Comment on above: Performed By: #### A DIFF, LIP, MDW, CMP, GFR, ANEU, CBC #### [address] [address] Platelet 344 10 3/mcL Normal 130-400 [facility] ([place]) Comment on above: Performed By: #### A DIFF, LIP, MDW, CMP, GFR, ANEU, CBC #### [address] [address] Platelet mean volume (Bld) [Entitic vol] 7.1 fL Low 7.4-10.4 [facility] ([place]) Comment on above: Performed By: #### A DIFF, LIP, MDW, CMP, GFR, ANEU, CBC #### [address] [address] RBC 4.10 10 6/mcL Normal 4.04-6.13 [facility] ([place]) Comment on above: Performed By: #### A DIFF, LIP, MDW, CMP, GFR, ANEU, CBC #### [address] [address] WBC 10.6 10 3/mcL Normal 4.6-10.8 [facility] ([place]) Comment on above: Performed By: #### A DIFF, LIP, MDW, CMP, GFR, ANEU, CBC #### [address] [address] CMPon 10-22-2022 Albumin Level 2.9 G/dL Low 3.4-4.8 [facility] ([place]) Comment on above: Performed By: #### A DIFF, LIP, MDW, CMP, GFR, ANEU, CBC #### [address] [address] Albumin/Globulin [Mass ratio] 0.8 {ratio} Low 1.1-2.5 [facility] ([place]) Comment on above: Performed By: #### A DIFF, LIP, MDW, CMP, GFR, ANEU, CBC #### [address] [address] ALP [Catalytic activity/Vol] 98 U/L Normal 40-135 [facility] ([place]) Comment on above: Performed By: #### A DIFF, LIP, MDW, CMP, GFR, ANEU, CBC #### [address] [address] ALT [Catalytic activity/Vol] 46 U/L Normal 16-63 [facility] ([place]) Comment on above: Performed By: #### A DIFF, LIP, MDW, CMP, GFR, ANEU, CBC #### [address] [address] AST [Catalytic activity/Vol] 29 U/L Normal 10-40 [facility] ([place]) Comment on above: Performed By: #### A DIFF, LIP, MDW, CMP, GFR, ANEU, CBC #### [address] [address] Bili Total 0.3 mg/dL Normal 0.2-1.0 [facility] ([place]) Comment on above: Result Comment: Use of this assay is not recommended for patients undergoing treatment with eltrombopag due to the potential for falsely elevated results. Performed By: #### A DIFF, LIP, MDW, CMP, GFR, ANEU, CBC #### [address] [address] BUN/Creatinine Ratio 17 ratio Normal 7-27 [facility] ([place]) Comment on above: Performed By: #### A DIFF, LIP, MDW, CMP, GFR, ANEU, CBC #### [address] [address] Calcium [Mass/Vol] 9.2 mg/dL Normal 8.4-10.2 [facility] ([place]) Comment on above: Performed By: #### A DIFF, LIP, MDW, CMP, GFR, ANEU, CBC #### [address] [address] Chloride [Moles/Vol] 96 mmol/L Low 98-107 [facility] ([place]) Comment on above: Performed By: #### A DIFF, LIP, MDW, CMP, GFR, ANEU, CBC #### [address] [address] CO2 [Moles/Vol] 33 mmol/L High 23-31 [facility] ([place]) Comment on above: Performed By: #### A DIFF, LIP, MDW, CMP, GFR, ANEU, CBC #### [address] [address] Creatinine [Mass/Vol] 1.22 mg/dL Normal 0.70-1.30 [facility] ([place]) Comment on above: Performed By: #### A DIFF, LIP, MDW, CMP, GFR, ANEU, CBC #### [address] [address] Electrolyte Balance 5.0 mEq/L Normal 4.0-15.0 [facility] ([place]) Comment on above: Performed By: #### A DIFF, LIP, MDW, CMP, GFR, ANEU, CBC #### [address] [address] Globulin 3.5 G/dL Normal [facility] ([place]) Comment on above: Performed By: #### A DIFF, LIP, MDW, CMP, GFR, ANEU, CBC #### [address] [address] Glucose [Mass/Vol] 111 mg/dL High 83-110 [facility] ([place]) Comment on above: Performed By: #### A DIFF, LIP, MDW, CMP, GFR, ANEU, CBC #### [address] [address] Potassium [Moles/Vol] 4.3 mmol/L Normal 3.5-5.1 [facility] ([place]) Comment on above: Performed By: #### A DIFF, LIP, MDW, CMP, GFR, ANEU, CBC #### [address] [address] Sodium [Moles/Vol] 134 mmol/L Low 136-145 [facility] ([place]) Comment on above: Performed By: #### A DIFF, LIP, MDW, CMP, GFR, ANEU, CBC #### [address] [address] Total Protein 6.4 G/dL Normal 6.4-8.2 [facility] ([place]) Comment on above: Performed By: #### A DIFF, LIP, MDW, CMP, GFR, ANEU, CBC #### [address] [address] Urea nitrogen [Mass/Vol] 21 mg/dL High 7-18 [facility] ([place]) Comment on above: Performed By: #### A DIFF, LIP, MDW, CMP, GFR, ANEU, CBC #### [address] [address] LABORATORYOrdered By: SYSTEM SYSTEM on 10-22-2022 Albumin [...] Level 32 U/L Normal 16-77 [facility] ([place]) Comment on above: Performed By: #### A DIFF, LIP, MDW, CMP, GFR, ANEU, CBC #### [place] [id number] [place], [place] [address] Absolute lymphocyte countOrd ered By: Dr. Jauregui on 10-21-2022 Lymphocytes Auto (Unsp spec) [#/Vol] 0.85 10*3/uL 0.83-4.51 [facility] Basophil percentageOrdered B y: Dr. Jauregui on 10-21-2022 Basophil percentage 25-50 SEEN /hpf 0-5 [facility] Basophils/100 WBC (Bld) 0.6 % 0-1 [facility] Bilirubin [Mass/Vol] 0.30 mg/dL 0.20-1.00 [facility] Comment on above: For patients on eltr ombopag therapy, use of Dimension [place] TBIL is not recommended. Chloride [Moles/Vol] 99 mmol/L 98-107 [facility] Eosinophils/100 WBC (Bld) 0.4 % 0-5 [facility] Glucose [Mass/Vol] 104 mg/dL 74-106 [facility] Comment on above: Fasting Glucose resu lt from 100 to 125 mg/dL suggests IMPAIRED HOMEOSTASIS per A.D.A. criteria. Neutrophils (Bld) [#/Vol] 8.8 10*3/uL 2.0-7.7 [facility] Neutrophils/100 WBC (Bld) 84.2 % 47-70 [facility] Potassium [Moles/Vol] 3.6 mmol/L 3.5-5.1 [facility] Protein [Mass/Vol] 7.2 g/dL 6.4-8.2 [facility] Sodium [Moles/Vol] 135 mmol/L 136-145 [facility] WBC (Bld) [#/Vol] 10.4 10*3/uL 4.4-11.0 [facility] Bilirubin Test strip Ql (U)O rdered By: Dr. Jauregui on 10-21-2022 Bilirubin Ql (U) Negative Negative [facility] Blood erythrocytes count (nu mber/volume)Ordered By: Dr. Jauregui on 10-21-2022 RBC (Bld) [#/Vol] 4.51 10*6/uL 4.6-6.2 [facility] Blood hemoglobin measurement (mass/volume)Ordered By: Dr. Jauregui on 10-21-2022 Hemoglobin (Bld) [Mass/Vol] 14.4 g/dL 13.0-16.5 [facility] Blood lymphocytes/100 leukoc ytesOrdered By: Dr. Jauregui on 10-21-2022 Lymphocytes/100 WBC (Bld) 8.2 % 19-41 [facility] Blood monocytes/100 leukocyt esOrdered By: Dr. Jauregui on 10-21-2022 Monocytes/100 WBC (Bld) 5.4 % 0-10 [facility] Blood platelet mean volumeOr dered By: Dr. Jauregui on 10-21-2022 Platelet mean volume (Bld) [Entitic vol] 8.9 fL 6.2-12.0 [facility] Culture, urineOrdered By: Joseph Jauregui on 10-21-2022 Bacteria identified Cx Nom (U) Presumptive E. coli [facility] Determination of erythrocyte mean corpuscular volume (MCV)Ordered By: Dr. Jauregui on 10-21-2022 MCV (RBC) [Entitic vol] 95.6 fL 80-94 [facility] Hematocrit Auto (Bld) [Volum e fraction]Ordered By: Dr. Jauregui on 10-21-2022 Hematocrit (Bld) [Volume fraction] 43.1 % 40-54 [facility] Ketones Test strip Ql (U)Ord ered By: Dr. Jauregui on 10-21-2022 Ketones Ql (U) Negative Negative [facility] - Chemistry and C hemistry - challengeOrdered By: Dr. Jauregui on 10-21-2022 ALP [Catalytic activity/Vol] 84 U/L 45-117 [facility] ALT [Catalytic activity/Vol] 41 U/L 16-61 [facility] CO2 [Moles/Vol] 28.0 mmol/L 21.0-32.0 [facility] Globulin (S) [Mass/Vol] 4.2 g/dL 2.2-4.2 [facility] Lipase [Catalytic activity/Vol] 42 U/L 13-75 [facility] Comment on above: Please note:LIPASE r evised reference range effective 22. New Lipase methodology. Expected to produce lower values than the previous assay method. NEW Reference Range: 13 - 75 U/L Urea nitrogen/Creatinine [Mass ratio] 16.3 mg/mg 10-20 [facility] - Hematology and Cell countsOrdered By: Dr. Jauregui on 10-21-2022 Erythrocyte distribution width (RBC) [Entitic vol] 45.7 fL 35.1-43.9 [facility] Erythrocyte distribution width (RBC) [Ratio] 13.0 % 11.6-14.6 [facility] Immature granulocytes/100 WBC (Bld) 1.200 % 0.0-0.9 [facility] Comment on above: IG% - Immature Granu locytes (promyelocytes, myelocytes and metamyelocytes) > 1% indicates that a LEFT SHIFT is Present. MCH (RBC) [Entitic mass] 31.9 pg 27.0-32.0 [facility] Nucleated RBC/100 WBC (Bld) [Ratio] 0 % 0-5 [facility] MCHC Auto (RBC) [Mass/Vol]Or dered By: Dr. Jauregui on 10-21-2022 MCHC (RBC) [Mass/Vol] 33.4 g/dL 32-36 [facility] Mucus LM Ql (Urine sed)Order ed By: Dr. Jauregui on 10-21-2022 Mucus Ql (Urine sed) 0 SEEN /hpf [facility] Nitrite Test strip Ql (U)Ord ered By: Dr. Jauregui on 10-21-2022 Nitrite Ql (U) Negative Negative [facility] No Panel InformationOrdered By: Dr. Jauregui on 10-21-2022 Estimated GFR (MDRD) Amer 90 mL/min >60 [facility] Comment on above: GFR Calc Estimated GFR (MDRD) Non-Af Amer 74 mL/min >60 [facility] Comment on above: Non- GFR Calc Platelets bldOrdered By: Dr. Jauregui on 10-21-2022 Platelets (Bld) [#/Vol] 339 10*3/uL 150-450 [facility] Protein Test strip Ql (U)Ord ered By: Dr. Jauregui on 10-21-2022 Protein Ql (U) 100 mg/dl Negative [facility] Serum or plasma albumin luis urement (mass/volume)Ordered By: Dr. Jauregui on 10-21-2022 Albumin [Mass/Vol] 3.0 g/dL 3.2-5.0 [facility] Serum or plasma albumin/glob ulin mass ratioOrdered By: Dr. Jauregui on 10-21-2022 Albumin/Globulin [Mass ratio] 0.7 {ratio} 0.9-2.4 [facility] Serum or plasma calcium luis urement (mass/volume)Ordered By: Dr. Jauregui on 10-21-2022 Calcium [Mass/Vol] 9.8 mg/dL 8.5-10.1 [facility] Serum or plasma creatinine m easurement (mass/volume)Ordered By: Dr. Jauregui on 10-21-2022 Creatinine [Mass/Vol] 1.04 mg/dL 0.70-1.30 [facility] Comment on above: The validity of the calculated GFR & GFRAA in patients over 70 years has not been determined. Clinical correlation is essential. Serum or plasma urea nitroge n measurement (mass/volume)Ordered By: Dr. Jauregui on 10-21-2022 Urea nitrogen [Mass/Vol] 17 mg/dL 7-18 [facility] Squamous epithelial cells de tection in urine sediment by light microscopyOrdered By: Dr. Jauregui on 10-21-2022 Epithelial cells.squamous LM Ql (Urine sed) 0-5 SEEN /hpf 0-5 [facility] Thin prep Papanicolaou smear with manual screeningOrdered By: Dr. Jauregui on 10-21-2022 Thin prep Papanicolaou smear with manual screening 20 U/L 15-37 [facility] Thin prep Papanicolaou smear with manual screening 8 5-15 [facility] Urine blood detectionOrdered By: Dr. Jauregui on 10-21-2022 RBC Ql (U) 50 /ul Negative [facility] RBC Ql (U) 0 SEEN /hpf 0-5 [facility] Urine clarityOrdered By: Dr. Jauregui on 10-21-2022 Clarity (U) Sl. Cloudy Clear [facility] Urine color determinationOrd ered By: Dr. Jauregui on 10-21-2022 Color (U) Yellow Yellow [facility] Urine glucose detectionOrder ed By: Dr. Jauregui on 10-21-2022 Glucose Ql (U) Normal mg/dl Normal [facility] Urine leukocyte esterase det ection by dipstickOrdered By: Dr. Jauregui on 10-21-2022 Leukocyte esterase Test strip Ql (U) 500 /ul Negative [facility] Urine pHOrdered By: Dr. Babs mckeon on 10-21-2022 pH (U) 6.0 [pH] 5.0 - 8.0 [facility] Urine sediment bacteria coun t by microscopy (number/high power field)Ordered By: Dr. Jauregui on 10-21-2022 Bacteria LM.HPF (Urine sed) [#/Area] 2 /[HPF] None Seen [facility] Urine specific gravity measu rementOrdered By: Dr. Jauregui on 10-21-2022 Specific gravity (U) [Rel density] 1.010 1.002-1.030 [facility] Urobilinogen Auto test strip Ql (U)Ordered By: Dr. Jauregui on 10-21-2022 Urobilinogen Ql (U) Normal mg/dl Normal [facility] No Panel InformationOrdered By: Андрей Cooley on 08-11-2022 Miscellaneous Test See comment [facility] Comment on above: TEST RESULT LIMITSCa rbamazepine(Tegretol), S 7.1 ug/mL 4.0-12.0 In conjunction with other antiepileptic drugs Therapeutic 4.0 - 8.0 Toxicity 9.0 - 12.0 Carbamazepine alone Therapeutic 8.0 - 12.0 Detection Limit = 2.0 <2.0 indicated None Detected Verified by repeat analysis TESTING PERFORMED AT [facility]. ORIGINAL REPORT ON FILE IN LAB CONTAINS ADDITIONAL TEST SITE INFORMATION. No Panel InformationOrdered By: Андрей Cooley on 07-12-2022 Miscellaneous Test See comment [facility] Comment on above: TEST RESULT LIMITSCarbamazepine(Tegretol),SCarbamazepine(Tegretol), S 6.3 ug/mL 4.0-12.0 In conjunction with other antiepileptic drugs Therapeutic 4.0 - 8.0 Toxicity 9.0 - 12.0 Carbamazepine alone Therapeutic 8.0 - 12.0 Detection Limit = 2.0 <2.0 indicated None Detected ____ TESTING PERFORMED AT [facility]. ORIGINAL REPORT ON FILE IN LAB CONTAINS ADDITIONAL TEST SITE INFORMATION. Basophil percentageOrdered B y: Андрей Cooley on 06-14-2022 Bilirubin [Mass/Vol] 0.20 mg/dL 0.20-1.00 [facility] Comment on above: For patients on eltr ombopag therapy, use of Dimension [place] TBIL is not recommended. Chloride [Moles/Vol] 104 mmol/L 98-107 [facility] Cholesterol [Mass/Vol] 139 mg/dL <200 [facility] Comment on above: <200 mg/dL Desirable 200-240 mg/dL Borderline >240 mg/dL High Risk Glucose [Mass/Vol] 76 mg/dL 74-106 [facility] Potassium [Moles/Vol] 3.9 mmol/L 3.5-5.1 [facility] Protein [Mass/Vol] 6.4 g/dL 6.4-8.2 [facility] Sodium [Moles/Vol] 139 mmol/L 136-145 [facility] Triglyceride [Mass/Vol] 111 mg/dL <199 [facility] Comment on above: The drugs N-Acetylcy steine and Metamizole may falsely depress this assay.Serum Triglycerides Reference Interval Normal <150 mg/dL Borderline high 150 - 199 mg/dL High 200 - 499 mg/dL Very High > or = 500 mg/dL WBC (Bld) [#/Vol] 5.5 10*3/uL 4.4-11.0 [facility] Blood erythrocytes count (nu mber/volume)Ordered By: Андрей Cooley on 06-14-2022 RBC (Bld) [#/Vol] 4.57 10*6/uL 4.6-6.2 [facility] Blood hemoglobin measurement (mass/volume)Ordered By: Андрей Cooley on 06-14-2022 Hemoglobin (Bld) [Mass/Vol] 15.0 g/dL 13.0-16.5 [facility] Blood platelet mean volumeOr dered By: Андрей Cooley on 06-14-2022 Platelet mean volume (Bld) [Entitic vol] 10.0 fL 6.2-12.0 [facility] Determination of erythrocyte mean corpuscular volume (MCV)Ordered By: Андрей Cooley on 06-14-2022 MCV (RBC) [Entitic vol] 100.4 fL 80-94 [facility] Hematocrit Auto (Bld) [Volum e fraction]Ordered By: Андрей Cooley on 06-14-2022 Hematocrit (Bld) [Volume fraction] 45.9 % 40-54 [facility] - Chemistry and C hemistry - challengeOrdered By: Андрей Cooley on 06-14-2022 ALP [Catalytic activity/Vol] 68 U/L 45-117 [facility] ALT [Catalytic activity/Vol] 31 U/L 16-61 [facility] CO2 [Moles/Vol] 31.0 mmol/L 21.0-32.0 [facility] Globulin (S) [Mass/Vol] 3.0 g/dL 2.2-4.2 [facility] Urea nitrogen/Creatinine [Mass ratio] 22.5 mg/mg 10-20 [facility] - Hematology and Cell countsOrdered By: Андрей Cooley on 06-14-2022 Erythrocyte distribution width (RBC) [Entitic vol] 51.8 fL 35.1-43.9 [facility] Erythrocyte distribution width (RBC) [Ratio] 14.2 % 11.6-14.6 [facility] MCH (RBC) [Entitic mass] 32.8 pg 27.0-32.0 [facility] MCHC Auto (RBC) [Mass/Vol]Or dered By: Андрей Cooley on 06-14-2022 MCHC (RBC) [Mass/Vol] 32.7 g/dL 32-36 [facility] No Panel InformationOrdered By: Андрей Cooley on 06-14-2022 Estimated GFR (MDRD) Amer 108 mL/min >60 [facility] Comment on above: GFR Calc Estimated GFR (MDRD) Non-Af Amer 89 mL/min >60 [facility] Comment on above: Non- GFR Calc Vitamin D 25-Hydroxy 40.8 ng/mL [facility] Comment on above: Vitamin D 25(OH) Sta tus Range Deficiency <20 ng/mL (50nmol/L) Insufficiency 20 - 30 ng/mL (50 - 75 nmol/L) Sufficiency 30 - 100 ng/mL (75 - 250 nmol/L) Toxicity >100 ng/mL (>250 nmol/L) Platelets bldOrdered By: Italia Cooley on 06-14-2022 Platelets (Bld) [#/Vol] 239 10*3/uL 150-450 [facility] Serum or plasma albumin luis urement (mass/volume)Ordered By: Андрей Cooley on 06-14-2022 Albumin [Mass/Vol] 3.4 g/dL 3.2-5.0 [facility] [facility] Serum or plasma albumin/glob ulin mass ratioOrdered By: Андрей Cooley on 06-14-2022 Albumin/Globulin [Mass ratio] 1.1 {ratio} 0.9-2.4 [facility] Serum or plasma calcium luis urement (mass/volume)Ordered By: Андрей Cooley on 06-14-2022 Calcium [Mass/Vol] 9.1 mg/dL 8.5-10.1 [facility] Serum or plasma cholesterol in HDL measurement (mass/volume)Ordered By: Андрей Cooley on 06-14-2022 Cholesterol in HDL [Mass/Vol] 65 mg/dL >40 [facility] Comment on above: The drugs N-Acetylcy steine and Metamizole may falsely depress this assay. Reference Range HDL <40 mg/dL Low HDL Cholesterol HDL >or= 60 mg/dL High HDL Cholesterol Serum or plasma cholesterol in VLDL measurement (mass/volume)Ordered By: Андрей Cooley on 06-14-2022 Cholesterol in VLDL [Mass/Vol] 22 mg/dL 5-40 [facility] Serum or plasma creatinine m easurement (mass/volume)Ordered By: Андрей Cooley on 06-14-2022 Creatinine [Mass/Vol] 0.89 mg/dL 0.70-1.30 [facility] Comment on above: The validity of the calculated GFR & GFRAA in patients over 70 years has not been determined. Clinical correlation is essential. Serum or plasma low density lipoprotein (LDL) cholesterol measurement (mass/volume)Ordered By: Андрей Cooley on 06-14-2022 Cholesterol in LDL [Mass/Vol] 52 mg/dL 0-130 [facility] Serum or plasma urea nitroge n measurement (mass/volume)Ordered By: Андрей Cooley on 06-14-2022 Urea nitrogen [Mass/Vol] 20 mg/dL 7-18 [facility] Thin prep Papanicolaou smear with manual screeningOrdered By: Андрей Cooley on 06-14-2022 Thin prep Papanicolaou smear with manual screening 13 U/L 15-37 [facility] Thin prep Papanicolaou smear with manual screening 4 5-15 [facility] No Panel InformationOrdered By: Андрей Cooley on 05-13-2022 Miscellaneous Test See comment [facility] Comment on above: TEST RESULT LIMITSCa rbamazepine(Tegretol), S 6.2 ug/mL 4.0-12.0 In conjunction with other antiepileptic drugs Therapeutic 4.0 - 8.0 Toxicity 9.0 - 12.0 Carbamazepine alone Therapeutic 8.0 - 12.0 Detection Limit = 2.0 <2.0 indicated None Detected ____ TESTING PERFORMED AT [facility]. ORIGINAL REPORT ON FILE IN LAB CONTAINS ADDITIONAL TEST SITE INFORMATION. Absolute lymphocyte counton 03-15-2022 Lymphocytes Auto (Unsp spec) [#/Vol] 1.09 10*3/uL 0.83-4.51 [facility] Work Phone: Basophil percentageon 2021 Basophils/100 WBC (Bld) 0.7 % 0-1 [facility] Work Phone: Bilirubin [Mass/Vol] 0.30 mg/dL 0.20-1.00 [facility] Work Phone: Comment on above: For patients on eltr ombopag therapy, use of Dimension [place] TBIL is not recommended. Chloride [Moles/Vol] 96 mmol/L 98-107 [facility] Work Phone: Cholesterol [Mass/Vol] 137 mg/dL <200 [facility] Work Phone: Comment on above: <200 mg/dL Desirable 200-240 mg/dL Borderline >240 mg/dL High Risk Eosinophils/100 WBC (Bld) 1.0 % 0-5 [facility] Work Phone: Glucose [Mass/Vol] 84 mg/dL 74-106 [facility] Work Phone: Neutrophils (Bld) [#/Vol] 5.3 10*3/uL 2.0-7.7 [facility] Work Phone: Neutrophils/100 WBC (Bld) 74.4 % 47-70 [facility] Work Phone: [phone] Potassium [Moles/Vol] 3.5 mmol/L 3.5-5.1 [facility] Work Phone: [phone] Comment on above: Slight Hemolysis, Re sult may be falsely increased. Protein [Mass/Vol] 7.2 g/dL 6.4-8.2 [facility] Work Phone: [phone] Sodium [Moles/Vol] 133 mmol/L 136-145 [facility] Work Phone: [phone] Triglyceride [Mass/Vol] 121 mg/dL <199 [facility] Work Phone: [phone] Comment on above: The drugs N-Acetylcy steine and Metamizole may falsely depress this assay.Serum Triglycerides Reference Interval Normal <150 mg/dL Borderline high 150 - 199 mg/dL High 200 - 499 mg/dL Very High > or = 500 mg/dL WBC (Bld) [#/Vol] 7.2 10*3/uL 4.4-11.0 [facility] Work Phone: [phone] Blood erythrocytes count (nu mber/volume)on 03-15-2022 RBC (Bld) [#/Vol] 5.31 10*6/uL 4.6-6.2 [facility] Work Phone: [phone] Blood hemoglobin measurement (mass/volume)on 03-15-2022 Hemoglobin (Bld) [Mass/Vol] 17.0 g/dL 13.0-16.5 [facility] Work Phone: Blood lymphocytes/100 leukoc yteson 03-15-2022 Lymphocytes/100 WBC (Bld) 15.2 % 19-41 [facility] Work Phone: Blood monocytes/100 leukocyt eson 03-15-2022 Monocytes/100 WBC (Bld) 7.9 % 0-10 [facility] Work Phone: [phone] Blood platelet mean volumeon 03-15-2022 Platelet mean volume (Bld) [Entitic vol] 9.8 fL 6.2-12.0 [facility] Work Phone: Determination of erythrocyte mean corpuscular volume (MCV)on 03-15-2022 MCV (RBC) [Entitic vol] 93.2 fL 80-94 [facility] Work Phone: Hematocrit Auto (Bld) [Volum e fraction]on 03-15-2022 Hematocrit (Bld) [Volume fraction] 49.5 % 40-54 [facility] Work Phone: INR in Blood by Coagulation assayon 03-15-2022 INR Coag (Bld) [Relative time] 0.9 {INR} [facility] Work Phone: Laboratory - Chemistry and C hemistry - challengeon 03-15-2022 ALP [Catalytic activity/Vol] 71 U/L 45-117 [facility] Work Phone: ALT [Catalytic activity/Vol] 41 U/L 16-61 [facility] Work Phone: CO2 [Moles/Vol] 28.0 mmol/L 21.0-32.0 [facility] Work Phone: Globulin (S) [Mass/Vol] 4.1 g/dL 2.2-4.2 [facility] Work Phone: Urea nitrogen/Creatinine [Mass ratio] 21.2 mg/mg 10-20 [facility] Work Phone: Laboratory - Coagulationon 0 03-15-2022 PT Coag (PPP) [Time] 11.8 s [facility].7-[facility] - Hematology and Cell countson 03-15-2022 Erythrocyte distribution width (RBC) [Entitic vol] 44.0 fL 35.1-43.9 [facility] Work Phone: Erythrocyte distribution width (RBC) [Ratio] 12.7 % 11.6-14.6 [facility] Work Phone: Immature granulocytes/100 WBC (Bld) 0.800 % 0.0-0.9 [facility] Work Phone: Comment on above: IG% - Immature Granu locytes (promyelocytes, myelocytes and metamyelocytes) > 1% indicates that a LEFT SHIFT is Present. MCH (RBC) [Entitic mass] 32.0 pg 27.0-32.0 [facility] Work Phone: Nucleated RBC/100 WBC (Bld) [Ratio] 0 % 0-5 [facility] Work Phone: [phone] MCHC Auto (RBC) [Mass/Vol]on 03-15-2022 MCHC (RBC) [Mass/Vol] 34.3 g/dL 32-36 [facility] Work Phone: No Panel Informationon 03-15 Carbamazepine (Tegretol) Level 7.3 ug/mL 4.0-12.0 [facility] Work Phone: [phone] Estimated GFR (MDRD) Amer 101 mL/min >60 [facility] Work Phone: [phone] Comment on above: GFR Calc Estimated GFR (MDRD) Non-Af Amer 84 mL/min >60 [facility] Work Phone: [phone] Comment on above: Non- GFR Calc Platelets bldon 03-15-2022 Platelets (Bld) [#/Vol] 327 10*3/uL 150-450 [facility] Work Phone: [phone] Serum or plasma albumin luis urement (mass/volume)on 03-15-2022 Albumin [Mass/Vol] 3.1 g/dL 3.2-5.0 [facility] Work Phone: [phone] Serum or plasma albumin/glob ulin mass ratioon 03-15-2022 Albumin/Globulin [Mass ratio] 0.8 {ratio} 0.9-2.4 [facility] Work Phone: [phone] Serum or plasma calcium luis urement (mass/volume)on 03-15-2022 Calcium [Mass/Vol] 9.1 mg/dL 8.5-10.1 [facility] Work Phone: Serum or plasma cholesterol in HDL measurement (mass/volume)on 03-15-2022 Cholesterol in HDL [Mass/Vol] 72 mg/dL >40 [facility] Work Phone: Comment on above: The drugs N-Acetylcy steine and Metamizole may falsely depress this assay. Reference Range HDL <40 mg/dL Low HDL Cholesterol HDL >or= 60 mg/dL High HDL Cholesterol Serum or plasma cholesterol in VLDL measurement (mass/volume)on 03-15-2022 Cholesterol in VLDL [Mass/Vol] 24 mg/dL 5-40 [facility] Work Phone: Serum or plasma creatinine m easurement (mass/volume)on 03-15-2022 Creatinine [Mass/Vol] 0.94 mg/dL 0.70-1.30 [facility] Work Phone: Comment on above: The validity of the calculated GFR & GFRAA in patients over 70 years has not been determined. Clinical correlation is essential. Serum or plasma low density lipoprotein (LDL) cholesterol measurement (mass/volume)on 03-15-2022 Cholesterol in LDL [Mass/Vol] 41 mg/dL 0-130 [facility] Work Phone: Serum or plasma urea nitroge n measurement (mass/volume)on 03-15-2022 Urea nitrogen [Mass/Vol] 20 mg/dL 7-18 [facility] Work Phone: Thin prep Papanicolaou smear with manual screeningon 03-15-2022 Thin prep Papanicolaou smear with manual screening 54 U/L 15-37 [facility] Work Phone: Comment on above: Slight Hemolysis, Re sult may be falsely increased. Thin prep Papanicolaou smear with manual screening 9 5-15 [facility] Work Phone: Absolute lymphocyte counton 03-02-2022 Lymphocytes Auto (Unsp spec) [#/Vol] 1.54 10*3/uL 0.83-4.51 [facility] Work Phone: Basophil percentageon 2021 Basophils/100 WBC (Bld) 0.9 % 0-1 [facility] Work Phone: Bilirubin [Mass/Vol] 0.20 mg/dL 0.20-1.00 [facility] Work Phone: Comment on above: For patients on eltr ombopag therapy, use of Dimension [place] TBIL is not recommended. Chloride [Moles/Vol] 101 mmol/L 98-107 [facility] Work Phone: Eosinophils/100 WBC (Bld) 1.0 % 0-5 [facility] Work Phone: Glucose [Mass/Vol] 98 mg/dL 74-106 [facility] Work Phone: Neutrophils (Bld) [#/Vol] 4.6 10*3/uL 2.0-7.7 [facility] Work Phone: Neutrophils/100 WBC (Bld) 67.4 % 47-70 [facility] Work Phone: Potassium [Moles/Vol] 3.8 mmol/L 3.5-5.1 [facility] Work Phone: Protein [Mass/Vol] 7.5 g/dL 6.4-8.2 [facility] Work Phone: Sodium [Moles/Vol] 138 mmol/L 136-145 [facility] Work Phone: WBC (Bld) [#/Vol] 6.8 10*3/uL 4.4-11.0 [facility] Work Phone: Blood erythrocytes count (nu mber/volume)on 03-02-2022 RBC (Bld) [#/Vol] 5.14 10*6/uL 4.6-6.2 [facility] Work Phone: Blood hemoglobin measurement (mass/volume)on 03-02-2022 Hemoglobin (Bld) [Mass/Vol] 16.3 g/dL 13.0-16.5 [facility] Work Phone: Blood lymphocytes/100 leukoc yteson 03-02-2022 Lymphocytes/100 WBC (Bld) 22.8 % 19-41 [facility] Work Phone: Blood monocytes/100 leukocyt eson 03-02-2022 Monocytes/100 WBC (Bld) 7.3 % 0-10 [facility] Work Phone: Blood platelet mean volumeon 03-02-2022 Platelet mean volume (Bld) [Entitic vol] 9.9 fL 6.2-12.0 [facility] Work Phone: Determination of erythrocyte mean corpuscular volume (MCV)on 03-02-2022 MCV (RBC) [Entitic vol] 94.9 fL 80-94 [facility] Work Phone: Hematocrit Auto (Bld) [Volum e fraction]on 03-02-2022 Hematocrit (Bld) [Volume fraction] 48.8 % 40-54 [facility] Work Phone: Laboratory - Chemistry and C hemistry - challengeon 03-02-2022 ALP [Catalytic activity/Vol] 67 U/L 45-117 [facility] Work Phone: ALT [Catalytic activity/Vol] 27 U/L 16-61 [facility] Work Phone: CO2 [Moles/Vol] 30.0 mmol/L 21.0-32.0 [facility] Work Phone: [phone] Globulin (S) [Mass/Vol] 3.7 g/dL 2.2-4.2 [facility] Work Phone: Lipase [Catalytic activity/Vol] 95 U/L 73-393 [facility] Work Phone: Urea nitrogen/Creatinine [Mass ratio] 14.8 mg/mg 10-20 [facility] Work Phone: Laboratory - Hematology and Cell countson 03-02-2022 Erythrocyte distribution width (RBC) [Entitic vol] 47.0 fL 35.1-43.9 [facility] Work Phone: Erythrocyte distribution width (RBC) [Ratio] 13.9 % 11.6-14.6 [facility] Work Phone: [phone] Immature granulocytes/100 WBC (Bld) 0.600 % 0.0-0.9 [facility] Work Phone: [phone] Comment on above: IG% - Immature Granu locytes (promyelocytes, myelocytes and metamyelocytes) > 1% indicates that a LEFT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 Hematocrit Auto (Bld) [Volum e fraction]on 12-01-2021 Hematocrit (Bld) [Volume fraction] 29.4 % 40-54 [facility] Work Phone: [phone] INR in Blood by Coagulation assayon 12-01-2021 INR Coag (Bld) [Relative time] 1.4 {INR} [facility] Work Phone: [phone] Laboratory - Chemistry and C hemistry - challengeon 12-01-2021 CO2 [Moles/Vol] 26.0 mmol/L 21.0-32.0 [facility] Work Phone: Urea nitrogen/Creatinine [Mass ratio] 14.6 mg/mg 10-20 [facility] Work Phone: Laboratory - Coagulationon 0 12-01-2021 PT Coag (PPP) [Time] 16.9 s 11.7-14.9 [facility] Work Phone: Laboratory - Hematology and Cell countson 12-01-2021 Erythrocyte distribution width (RBC) [Entitic vol] 68.4 fL 35.1-43.9 [facility] Work Phone: Erythrocyte distribution width (RBC) [Ratio] 26.7 % 11.6-14.6 [facility] Work Phone: MCH (RBC) [Entitic mass] 24.3 pg 27.0-32.0 [facility] Work Phone: MCHC Auto (RBC) [Mass/Vol]on 12-01-2021 MCHC (RBC) [Mass/Vol] 28.2 g/dL 32-36 [facility] Work Phone: No Panel Informationon 12-01 Estimated GFR (MDRD) Amer 99 mL/min >60 [facility] Work Phone: Comment on above: GFR Calc Estimated GFR (MDRD) Non-Af Amer 82 mL/min >60 [facility] Work Phone: Comment on above: Non- GFR Calc Platelets bldon 12-01-2021 Platelets (Bld) [#/Vol] 307 10*3/uL 150-450 [facility] Work Phone: Serum or plasma calcium luis urement (mass/volume)on 12-01-2021 Calcium [Mass/Vol] 9.5 mg/dL 8.5-10.1 [facility] Work Phone: Serum or plasma creatinine m easurement (mass/volume)on 12-01-2021 Creatinine [Mass/Vol] 0.96 mg/dL 0.70-1.30 [facility] Work Phone: Comment on above: The validity of the calculated GFR & GFRAA in patients over 70 years has not been determined. Clinical correlation is essential. Serum or plasma urea nitroge n measurement (mass/volume)on 12-01-2021 Urea nitrogen [Mass/Vol] 14 mg/dL 7-18 [facility] Work Phone: Thin prep Papanicolaou smear with manual screeningon 12-01-2021 Thin prep Papanicolaou smear with manual screening 7 -15 [facility] Work Phone: Absolute lymphocyte counton 11-30-2021 Lymphocytes Auto (Unsp spec) [#/Vol] 1.13 10*3/uL 0.83-4.51 [facility] Work Phone: Basophil percentageon 2021 Basophil percentage 3.4 mg/dL 2.5-4.9 [facility] Work Phone: Basophils/100 WBC (Bld) 1.5 % 0-1 [facility] Work Phone: Chloride [Moles/Vol] 107 mmol/L 98-107 [facility] Work Phone: Eosinophils/100 WBC (Bld) 3.5 % 0-5 [facility] Work Phone: Glucose [Mass/Vol] 90 mg/dL 74-106 [facility] Work Phone: Neutrophils (Bld) [#/Vol] 6.9 10*3/uL 2.0-7.7 [facility] Work Phone: Neutrophils/100 WBC (Bld) 74.4 % 47-70 [facility] Work Phone: Potassium [Moles/Vol] 3.4 mmol/L 3.5-5.1 [facility] Work Phone: Sodium [Moles/Vol] 140 mmol/L 136-145 [facility] Work Phone: WBC (Bld) [#/Vol] 9.3 10*3/uL 4.4-11.0 [facility] Work Phone: Blood erythrocytes count (nu mber/volume)on 11-30-2021 RBC (Bld) [#/Vol] 3.21 10*6/uL 4.6-6.2 [facility] Work Phone: Blood hemoglobin measurement (mass/volume)on 11-30-2021 Hemoglobin (Bld) [Mass/Vol] 7.8 g/dL 13.0-16.5 [facility] Work Phone: Blood lymphocytes/100 leukoc yteson 11-30-2021 Lymphocytes/100 WBC (Bld) 12.2 % 19-41 [facility] Work Phone: Blood monocytes/100 leukocyt eson 11-30-2021 Monocytes/100 WBC (Bld) 7.0 % 0-10 [facility] Work Phone: Blood platelet mean volumeon 11-30-2021 Platelet mean volume (Bld) [Entitic vol] 10.8 fL 6.2-12.0 [facility] Work Phone: Blood polychromasia detectio n by light microscopyon 11-30-2021 Polychromasia LM Ql (Bld) 2+ [facility] Work Phone: Determination of erythrocyte mean corpuscular volume (MCV)on 11-30-2021 MCV (RBC) [Entitic vol] 83.8 fL 80-94 [facility] Work Phone: Hematocrit Auto (Bld) [Volum e fraction]on 11-30-2021 Hematocrit (Bld) [Volume fraction] 26.9 % 40-54 [facility] Work Phone: INR in Blood by Coagulation assayon 11-30-2021 INR Coag (Bld) [Relative time] 1.4 {INR} [facility] Work Phone: Laboratory - Chemistry and C hemistry - challengeon 11-30-2021 CO2 [Moles/Vol] 26.0 mmol/L 21.0-32.0 [facility] Work Phone: Urea nitrogen/Creatinine [Mass ratio] 12.0 mg/mg 10-20 [facility] Work Phone: [phone] Laboratory - Coagulationon 0 11-30-2021 PT Coag (PPP) [Time] 17.1 s 11.7-14.9 [facility] Work Phone: [phone] Laboratory - Hematology and Cell countson 11-30-2021 Anisocytosis Ql (Bld) 2+ [facility] Work Phone: [phone] Erythrocyte distribution width (RBC) [Entitic vol] 64.9 fL 35.1-43.9 [facility] Work Phone: [phone] Erythrocyte distribution width (RBC) [Ratio] 24.2 % 11.6-14.6 [facility] Work Phone: [phone] Immature granulocytes/100 WBC (Bld) 1.400 % 0.0-0.9 [facility] Work Phone: [phone] Comment on above: IG% - Immature Granu locytes (promyelocytes, myelocytes and metamyelocytes) > 1% indicates that a LEFT SHIFT is Present. MCH (RBC) [Entitic mass] 24.3 pg 27.0-32.0 [facility] Work Phone: Nucleated RBC/100 WBC (Bld) [Ratio] 2.7 % 0-5 [facility] Work Phone: MCHC Auto (RBC) [Mass/Vol]on 11-30-2021 MCHC (RBC) [Mass/Vol] 29.0 g/dL 32-36 [facility] Work Phone: No Panel Informationon 11-30 Estimated Creatinine Clearance Calc 70.99 ml/min [facility] Work Phone: Estimated GFR (MDRD) Amer 105 mL/min >60 [facility] Work Phone: [phone] Comment on above: GFR Calc Estimated GFR (MDRD) Non-Af Amer 87 mL/min >60 [facility] Work Phone: [phone] Comment on above: Non- GFR Calc Anti-Gliadin IgA Antibody 3 units 0-19 [facility] Work Phone: Comment on above: Negative 0 - 19 Weak Positive 20 - 30 Moderate to Strong Positive >30 Anti-Gliadin IgG Antibody 1 units 0-19 [facility] Work Phone: Comment on above: Negative 0 - 19 Weak Positive 20 - 30 Moderate to Strong Positive >30 Endomysial IgA Antibody Negative Negative [facility] Work Phone: [phone] Tissue Transglutaminase IgG Ab <2 U/mL 0-5 [facility] Work Phone: Comment on above: Negative 0 - 5 Weak Positive 6 - 9 Positive >9 Platelets bldon 11-30-2021 Platelets (Bld) [#/Vol] 305 10*3/uL 150-450 [facility] Work Phone: Serum IgA measurement (units /volume)on 11-30-2021 IgA Qn (S) 128 mg/dL 61-437 [facility] Work Phone: Comment on above: Performed at: [employer] [facility] [employer] [place] [id number] Director: Дмитрий Tran PhD, Phone: [phone] Serum or plasma calcium luis urement (mass/volume)on 11-30-2021 Calcium [Mass/Vol] 8.9 mg/dL 8.5-10.1 [facility] Work Phone: Serum or plasma creatinine m easurement (mass/volume)on 11-30-2021 Creatinine [Mass/Vol] 0.91 mg/dL 0.70-1.30 [facility] Work Phone: Comment on above: The validity of the calculated GFR & GFRAA in patients over 70 years has not been determined. Clinical correlation is essential. Serum or plasma urea nitroge n measurement (mass/volume)on 11-30-2021 Urea nitrogen [Mass/Vol] 11 mg/dL 7-18 [facility] Work Phone: Serum tissue transglutaminas e IgA antibody assay (units/volume)on 11-30-2021 tTG IgA Qn (S) <2 U/mL 0-3 [facility] Work Phone: Comment on above: Negative 0 - 3 Weak Positive 4 - 10 Positive >10 Tissue Transglutaminase (tTG) has been identified as the endomysial antigen. Studies have demonstr- ated that endomysial IgA antibodies have over 99% specificity for gluten sensitive enteropathy. Thin prep Papanicolaou smear with manual screeningon 11-30-2021 Thin prep Papanicolaou smear with manual screening 7 5-15 [facility] Work Phone: Blood platelet adequacy dete ction by light microscopyon 11-29-2021 Platelets LM Ql (Bld) ADEQUATE ADEQ [facility] Work Phone: Hypochromatic red blood cell detectionon 11-29-2021 Hypochromia Ql (Bld) 1+ [facility] Work Phone: Serum or plasma ferritin arlyn surement (mass/volume)on 11-29-2021 Ferritin [Mass/Vol] 157 ng/mL 26-388 [facility] Work Phone: Blood manual differential co mment interpretation (narrative result)on 11-28-2021 Manual differential comment Ghassan (Bld) [Interp] SCANNED [facility] Work Phone: Laboratory - Chemistry and C hemistry - challengeon 11-28-2021 Magnesium [Mass/Vol] 2.0 mg/dL 1.6-2.6 [facility] Work Phone: Macrocytes detectionon 11-28 Macrocytes Ql (Bld) RARE [facility] Work Phone: Ovalocyte detectionon 2021 Ovalocytes LM Ql (Bld) 1+ [facility] Work Phone: Thin prep Papanicolaou smear with manual screeningon 11-28-2021 Thin prep Papanicolaou smear with manual screening 1+ [facility] [facility] Work Phone: Laboratory - Chemistry and C hemistry - challengeon 11-26-2021 Cobalamin (Vitamin B12) [Mass/Vol] 403 pg/mL 211-911 [facility] Work Phone: No Panel Informationon 11-26 Troponin I High Sensitivity 13 pg/mL 3.0-78.0 [facility] Work Phone: Comment on above: Please Note: New [place] t Units and Gender Specific Reference Ranges. For more information see Policy Stat Procedure [place] High Sensitivity Troponin (TNIH) and attachments. Absolute lymphocyte counton 11-25-2021 Lymphocytes Auto (Unsp spec) [#/Vol] 0.81 10*3/uL 0.83-4.51 [facility] Work Phone: Basophil percentageon 2021 Basophil percentage 0 SEEN /hpf 0-5 [facility] Work Phone: Basophils/100 WBC (Bld) 0.7 % 0-1 [facility] Work Phone: Eosinophils/100 WBC (Bld) 0.1 % 0-5 [facility] Work Phone: Neutrophils (Bld) [#/Vol] 5.8 10*3/uL 2.0-7.7 [facility] Work Phone: Neutrophils/100 WBC (Bld) 80.9 % 47-70 [facility] Work Phone: WBC (Bld) [#/Vol] 7.1 10*3/uL 4.4-11.0 [facility] Work Phone: Bilirubin [Mass/Vol] 0.20 mg/dL 0.20-1.00 [facility] Work Phone: Comment on above: For patients on eltr ombopag therapy, use of Dimension [place] TBIL is not recommended. Chloride [Moles/Vol] 101 mmol/L 98-107 [facility] Work Phone: Glucose [Mass/Vol] 113 mg/dL 74-106 [facility] Work Phone: Comment on above: Fasting Glucose resu lt from 100 to 125 mg/dL suggests IMPAIRED HOMEOSTASIS per A.D.A. criteria. Potassium [Moles/Vol] 4.2 mmol/L 3.5-5.1 [facility] Work Phone: Protein [Mass/Vol] 6.8 g/dL 6.4-8.2 [facility] Work Phone: Sodium [Moles/Vol] 133 mmol/L 136-145 [facility] Work Phone: [phone] Bilirubin Test strip Ql (U)o n 11-25-2021 Bilirubin Ql (U) Negative Negative [facility] Work Phone: Blood erythrocytes count (nu mber/volume)on 11-25-2021 RBC (Bld) [#/Vol] 2.36 10*6/uL 4.6-6.2 [facility] Work Phone: Blood hemoglobin measurement (mass/volume)on 11-25-2021 Hemoglobin (Bld) [Mass/Vol] 4.4 g/dL 13.0-16.5 [facility] Work Phone: Comment on above: CRITICAL VALUE VERIF IED. CALLED TO [id number]/09/22 [id number] Kateryna Horn.RESULTS READ BACK BY SAME . Blood lymphocytes/100 leukoc yteson 11-25-2021 Lymphocytes/100 WBC (Bld) 11.4 % 19-41 [facility] Work Phone: Blood manual differential co mment interpretation (narrative result)on 11-25-2021 Manual differential comment Ghassan (Bld) [Interp] SCANNED [facility] Work Phone: Comment on above: ANEMIA NOTED Blood monocytes/100 leukocyt eson 11-25-2021 Monocytes/100 WBC (Bld) 6.3 % 0-10 [facility] Work Phone: [phone] Blood platelet mean volumeon 11-25-2021 Platelet mean volume (Bld) [Entitic vol] 10.2 fL 6.2-12.0 [facility] Work Phone: [phone] Determination of erythrocyte mean corpuscular volume (MCV)on 11-25-2021 MCV (RBC) [Entitic vol] 71.6 fL 80-94 [facility] Work Phone: [phone] Hematocrit Auto (Bld) [Volum e fraction]on 11-25-2021 Hematocrit (Bld) [Volume fraction] 16.9 % 40-54 [facility] Work Phone: [phone] Hemoglobin in reticulocytes (mass per reticulocyte)on 11-25-2021 Hemoglobin (Reticulocytes) [Entitic mass] 15.0 pg 30-35 [facility] Work Phone: Hypochromatic red blood cell detectionon 11-25-2021 [facility]ochromia [facility]l (Bld) [facility]: [phone] INR in Blood by Coagulation assayon 11-25-2021 INR Coag (Bld) [Relative time] 5.4 {INR} [facility] Work Phone: [phone] Comment on above: CRITICAL VALUE VERIF IED. CALLED TO [id number] Kateryna Smart Workman.RESULTS READ BACK BY SAME . Iron measurement (mass/mass) on 11-25-2021 Iron (Unsp spec) [Mass/Mass] 10 ug/dL 65-175 [facility] Work Phone: Ketones Test strip Ql (U)on 11-25-2021 Ketones Ql (U) Negative Negative [facility] Work Phone: [phone] Laboratory - Chemistry and C hemistry - challengeon 11-25-2021 ALP [Catalytic activity/Vol] 54 U/L 45-117 [facility] Work Phone: ALT [Catalytic activity/Vol] 20 U/L 16-61 [facility] Work Phone: [phone] CO2 [Moles/Vol] 23.0 mmol/L 21.0-32.0 [facility] Work Phone: [phone] Globulin (S) [Mass/Vol] 3.1 g/dL 2.2-4.2 [facility] Work Phone: Urea nitrogen/Creatinine [Mass ratio] 16.7 mg/mg 10-20 [facility] Work Phone: [phone] Laboratory - Coagulationon 0 11-25-2021 PT Coag (PPP) [Time] 49.2 s 11.7-14.9 [facility] Work Phone: [phone] Laboratory - Hematology and Cell countson 11-25-2021 Erythrocyte distribution width (RBC) [Entitic vol] 48.7 fL 35.1-43.9 [facility] Work Phone: [phone] Erythrocyte distribution width (RBC) [Ratio] 18.6 % 11.6-14.6 [facility] Work Phone: [phone] Immature granulocytes/100 WBC (Bld) 0.600 % 0.0-0.9 [facility] Work Phone: [phone] Comment on above: IG% - Immature Granu locytes (promyelocytes, myelocytes and metamyelocytes) > 1% indicates that a LEFT SHIFT is Present. MCH (RBC) [Entitic mass] 18.6 pg 27.0-32.0 [facility] Work Phone: [phone] Nucleated RBC/100 WBC (Bld) [Ratio] 0.6 % 0-5 [facility] Work Phone: [phone] Lower GI hemoglobin IA Ql (S tl)on 11-25-2021 Stool Occult Blood (LACI) Positive [facility] Work Phone: [phone] MCHC Auto (RBC) [Mass/Vol]on 11-25-2021 MCHC (RBC) [Mass/Vol] 26.0 g/dL 32-36 [facility] Work Phone: [phone] Mucus LM Ql (Urine sed)on Mucus Ql (Urine sed) 0 SEEN /hpf [facility] Work Phone: [phone] Nitrite Test strip Ql (U)on 11-25-2021 Nitrite Ql (U) Negative Negative [facility] Work Phone: [phone] Panel Informationon 11-25 Immature Reticulocyte Fraction 25.00 % 3.00-15.90 [facility] Work Phone: [phone] Reticulocyte Count 2.10 % 0.5-1.5 [facility] Work Phone: Estimated Creatinine Clearance Calc 44.86 ml/min [facility] Work Phone: Estimated GFR (MDRD) Amer 62 mL/min >60 [facility] Work Phone: Comment on above: GFR Calc Estimated GFR (MDRD) Non-Af Amer 51 mL/min >60 [facility] Work Phone: Comment on above: Non- GFR Calc Total Iron Binding Capacity 466 ug/dL 250-450 [facility] Work Phone: Platelets bldon 11-25-2021 Platelets (Bld) [#/Vol] 398 10*3/uL 150-450 [facility] Work Phone: Protein Test strip Ql (U)on 11-25-2021 Protein Ql (U) Negative Negative [facility] Work Phone: [phone] Review by pathologiston Pathologist review Ghassan (Unsp spec) [Interp] October jj [facility] Work Phone: Pathologist review Ghassan (Unsp spec) [Interp] Reviewed [facility] Work Phone: [phone] Comment on above: Previous reported re sult: Lena gardner Edited by: RGOROMMEL on 11/26/21:1239Severe Microcytic anemia.Clinical correlation necessary.Sebastian Gonzalez M.D. 11/26/21 AMENDED REPORT 11/26/21 1239 PATH REV previously reported as: October jj Serum or plasma albumin luis urement (mass/volume)on 11-25-2021 Albumin [Mass/Vol] 3.7 g/dL 3.2-5.0 [facility] Work Phone: Serum or plasma albumin/glob ulin mass ratioon 11-25-2021 Albumin/Globulin [Mass ratio] 1.2 {ratio} 0.9-2.4 [facility] Work Phone: Serum or plasma calcium luis urement (mass/volume)on 11-25-2021 Calcium [Mass/Vol] 8.2 mg/dL 8.5-10.1 [facility] Work Phone: [phone] Serum or plasma creatinine m easurement (mass/volume)on 11-25-2021 Creatinine [Mass/Vol] 1.44 mg/dL 0.70-1.30 [facility] Work Phone: Comment on above: The validity of the calculated GFR & GFRAA in patients over 70 years has not been determined. Clinical correlation is essential. Serum or plasma ferritin arlyn surement (mass/volume)on 11-25-2021 Ferritin [Mass/Vol] 5 ng/mL 26-388 [facility] Work Phone: [phone] Serum or plasma folate measu rement (mass/volume)on 11-25-2021 Folate [Mass/Vol] 12.90 ng/mL 3.1-55.4 [facility] Work Phone: [phone] Serum or plasma iron saturat ion measurement (mass fraction)on 11-25-2021 Iron saturation [Mass fraction] 2.1 % 15.0-55.0 [facility] Work Phone: Serum or plasma urea nitroge n measurement (mass/volume)on 11-25-2021 Urea nitrogen [Mass/Vol] 24 mg/dL 7-18 [facility] Work Phone: [phone] Squamous epithelial cells de tection in urine sediment by light microscopyon 11-25-2021 Epithelial cells.squamous LM Ql (Urine sed) 0 SEEN /hpf 0-5 [facility] Work Phone: [phone] Thin prep Papanicolaou smear with manual screeningon 11-25-2021 Thin prep Papanicolaou smear with manual screening 10 U/L 15-37 [facility] Work Phone: [phone] Thin prep Papanicolaou smear with manual screening 9 5-15 [facility] Work Phone: [phone] Urine blood detectionon RBC Ql (U) 50 /ul Negative [facility] Work Phone: RBC Ql (U) 5-10 SEEN /hpf 0-5 [facility] Work Phone: Urine clarityon 11-25-2021 Clarity (U) Clear Clear [facility] Work Phone: Urine color determinationon 11-25-2021 Color (U) Straw Yellow [facility] Work Phone: Urine glucose detectionon Glucose Ql (U) Normal mg/dl Normal [facility] Work Phone: Urine leukocyte esterase det ection by dipstickon 11-25-2021 Leukocyte esterase Test strip Ql (U) Negative Negative [facility] Work Phone: Urine pHon 11-25-2021 pH (U) 7.0 [pH] 5.0 - 8.0 [facility] Work Phone: Urine sediment bacteria coun t by microscopy (number/high power field)on 11-25-2021 Bacteria LM.HPF (Urine sed) [#/Area] RARE /hpf None Seen [facility] Work Phone: Urine specific gravity measu rementon 11-25-2021 Specific gravity (U) [Rel density] 1.010 1.002-1.030 [facility] Work Phone: Urobilinogen Auto test strip Ql (U)on 11-25-2021 Urobilinogen Ql (U) Normal mg/dl Normal [facility] Work Phone: INR in Blood by Coagulation assayon 11-11-2021 INR Coag (Bld) [Relative time] 1.2 {INR} [facility] Laboratory - Coagulationon 0 11-11-2021 PT Coag (PPP) [Time] 15.1 s 11.7-14.9 [facility] Work Phone: No Panel Informationon 11-08 DLCO (ml/min/mmHg) 7.15 ml/min/mmHg [facility] DLCO/VA (ml/min/mmHg/L) 1.63 ml/min/mmHg/L [facility] [id number]% PRE (L/S) 0.30 L/S [facility] FEV1 PRE (L) 0.85 L [facility] FEV1/FVC PRE (%) 0.38 % [facility] FVC PRE (L) 2.23 L [facility] PEF PRE (L/S) 1.51 L/S [facility] VA (L) 4.38 L [facility] CNCOon 10-18-2021 CNCO Letter Text Letter Text Normal [facility] INR FINGERSTICK B/Oon 2021 INR Coag (Bld) [Relative time] 2.2 EXT [facility] Quality Check No [facility] Absolute lymphocyte counton 10-08-2021 Lymphocytes Auto (Unsp spec) [#/Vol] 1.26 10*3/uL 0.83-4.51 [facility] Work Phone: Basophil percentageon 2021 Basophil percentage 10-25 SEEN /hpf 0-5 [facility] Work Phone: Basophils/100 WBC (Bld) 1.3 % 0-1 [facility] Work Phone: Bilirubin [Mass/Vol] 0.30 mg/dL 0.20-1.00 [facility] Work Phone: Comment on above: For patients on eltr ombopag therapy, use of Dimension [place] TBIL is not recommended. Chloride [Moles/Vol] 105 mmol/L 98-107 [facility] Work Phone: Eosinophils/100 WBC (Bld) 0.5 % 0-5 [facility] Work Phone: Glucose [Mass/Vol] 99 mg/dL 74-106 [facility] Work Phone: Neutrophils (Bld) [#/Vol] 4.3 10*3/uL 2.0-7.7 [facility] Work Phone: Neutrophils/100 WBC (Bld) 70.4 % 47-70 [facility] Work Phone: Potassium [Moles/Vol] 3.7 mmol/L 3.5-5.1 [facility] Work Phone: Protein [Mass/Vol] 7.5 g/dL 6.4-8.2 [facility] Work Phone: Sodium [Moles/Vol] 138 mmol/L 136-145 [facility] Work Phone: WBC (Bld) [#/Vol] 6.1 10*3/uL 4.4-11.0 [facility] Work Phone: Bilirubin Test strip Ql (U)o n 10-08-2021 Bilirubin Ql (U) Negative Negative [facility] Work Phone: Blood erythrocytes count (nu mber/volume)on 10-08-2021 RBC (Bld) [#/Vol] 3.87 10*6/uL 4.6-6.2 [facility] Work Phone: Blood hemoglobin measurement (mass/volume)on 10-08-2021 Hemoglobin (Bld) [Mass/Vol] 8.3 g/dL 13.0-16.5 [facility] Work Phone: Blood lymphocytes/100 leukoc yteson 10-08-2021 Lymphocytes/100 WBC (Bld) 20.5 % 19-41 [facility] Work Phone: Blood monocytes/100 leukocyt eson 10-08-2021 Monocytes/100 WBC (Bld) 7.0 % 0-10 [facility] Work Phone: Blood platelet mean volumeon 10-08-2021 Platelet mean volume (Bld) [Entitic vol] 10.1 fL 6.2-12.0 [facility] Work Phone: Determination of erythrocyte mean corpuscular volume (MCV)on 10-08-2021 MCV (RBC) [Entitic vol] 74.7 fL 80-94 [facility] Work Phone: Hematocrit Auto (Bld) [Volum e fraction]on 10-08-2021 Hematocrit (Bld) [Volume fraction] 28.9 % 40-54 [facility] Work Phone: INR in Blood by Coagulation assayon 10-08-2021 INR Coag (Bld) [Relative time] 2.4 {INR} [facility] Work Phone: Ketones Test strip Ql (U)on 10-08-2021 Ketones Ql (U) Negative Negative [facility] Work Phone: Laboratory - Chemistry and C hemistry - challengeon 10-08-2021 ALP [Catalytic activity/Vol] 74 U/L 45-117 [facility] Work Phone: ALT [Catalytic activity/Vol] 21 U/L 16-61 [facility] Work Phone: [phone] CO2 [Moles/Vol] 30.0 mmol/L 21.0-32.0 [facility] Work Phone: Globulin (S) [Mass/Vol] 3.7 g/dL 2.2-4.2 [facility] Work Phone: [phone] Lipase [Catalytic activity/Vol] 93 U/L 73-393 [facility] Work Phone: [phone] Urea nitrogen/Creatinine [Mass ratio] 20.2 mg/mg 10-20 [facility] Work Phone: Laboratory - Coagulationon 0 10-08-2021 PT Coag (PPP) [Time] 25.7 s 11.7-14.9 [facility] Work Phone: [phone] Laboratory - Hematology and Cell countson 10-08-2021 Erythrocyte distribution width (RBC) [Entitic vol] 50.4 fL 35.1-43.9 [facility] Work Phone: [phone] Erythrocyte distribution width (RBC) [Ratio] 18.6 % 11.6-14.6 [facility] Work Phone: [phone] Immature granulocytes/100 WBC (Bld) 0.300 % 0.0-0.9 [facility] Work Phone: Comment on above: IG% - Immature Granu locytes (promyelocytes, myelocytes and metamyelocytes) > 1% indicates that a LEFT SHIFT is Present. MCH (RBC) [Entitic mass] 21.4 pg 27.0-32.0 [facility] Work Phone: [phone] Nucleated RBC/100 WBC (Bld) [Ratio] 0 % 0-5 [facility] Work Phone: [phone] MCHC Auto (RBC) [Mass/Vol]on 10-08-2021 MCHC (RBC) [Mass/Vol] 28.7 g/dL 32-36 [facility] Work Phone: [phone] Mucus LM Ql (Urine sed)on Mucus Ql (Urine sed) 0 SEEN /hpf [facility] Work Phone: [phone] Nitrite Test strip Ql (U)on 10-08-2021 Nitrite Ql (U) Positive Negative [facility] Work Phone: [phone] Panel Informationon 10-08 Estimated Creatinine Clearance Calc 68.72 ml/min [facility] Work Phone: [phone] Estimated GFR (MDRD) Amer 101 mL/min >60 [facility] Work Phone: [phone] Comment on above: GFR Calc Estimated GFR (MDRD) Non-Af Amer 84 mL/min >60 [facility] Work Phone: [phone] Comment on above: Non- GFR Calc Platelets bldon 10-08-2021 Platelets (Bld) [#/Vol] 349 10*3/uL 150-450 [facility] Work Phone: [phone] Protein Test strip Ql (U)on 10-08-2021 Protein Ql (U) 100 mg/dl Negative [facility] Work Phone: [phone] Serum or plasma albumin luis urement (mass/volume)on 10-08-2021 Albumin [Mass/Vol] 3.8 g/dL 3.2-5.0 [facility] Work Phone: [phone] Serum or plasma albumin/glob ulin mass ratioon 10-08-2021 Albumin/Globulin [Mass ratio] 1.0 {ratio} 0.9-2.4 [facility] Work Phone: Serum or plasma calcium luis urement (mass/volume)on 10-08-2021 Calcium [Mass/Vol] 9.1 mg/dL 8.5-10.1 [facility] Work Phone: Serum or plasma creatinine m easurement (mass/volume)on 10-08-2021 Creatinine [Mass/Vol] 0.94 mg/dL 0.70-1.30 [facility] Work Phone: Comment on above: The validity of the calculated GFR & GFRAA in patients over 70 years has not been determined. Clinical correlation is essential. Serum or plasma urea nitroge n measurement (mass/volume)on 10-08-2021 Urea nitrogen [Mass/Vol] 19 mg/dL 7-18 [facility] Work Phone: Squamous epithelial cells de tection in urine sediment by light microscopyon 10-08-2021 Epithelial cells.squamous LM Ql (Urine sed) 0-5 SEEN /hpf 0-5 [facility] Work Phone: Thin prep Papanicolaou smear with manual screeningon 10-08-2021 Thin prep Papanicolaou smear with manual screening 12 U/L 15-37 [facility] Work Phone: Thin prep Papanicolaou smear with manual screening 3 5-15 [facility] Work Phone: Urine blood detectionon 09-18 RBC Ql (U) 10 /ul Negative [facility] Work Phone: RBC Ql (U) 0 SEEN /hpf 0-5 [facility] Work Phone: Urine clarityon 10-08-2021 Clarity (U) Sl. Cloudy Clear [facility] Work Phone: Urine color determinationon 10-08-2021 Color (U) Yellow Yellow [facility] Work Phone: [phone] Urine glucose detectionon Glucose Ql (U) Normal mg/dl Normal [facility] Work Phone: [phone] Urine leukocyte esterase det ection by dipstickon 10-08-2021 Leukocyte esterase Test strip Ql (U) 500 /ul Negative [facility] Work Phone: Urine pHon 10-08-2021 pH (U) 6.5 [pH] 5.0 - 8.0 [facility] Work Phone: Urine sediment bacteria coun t by microscopy (number/high power field)on 10-08-2021 Bacteria LM.HPF (Urine sed) [#/Area] 3 /[HPF] None Seen [facility] Work Phone: Urine specific gravity measu rementon 10-08-2021 Specific gravity (U) [Rel density] 1.010 1.002-1.030 [facility] Work Phone: Urobilinogen Auto test strip Ql (U)on 10-08-2021 Urobilinogen Ql (U) Normal mg/dl Normal [facility] Work Phone: Absolute lymphocyte counton 09-22-2021 Lymphocytes Auto (Unsp spec) [#/Vol] 1.51 10*3/uL 0.83-4.51 [facility] Work Phone: Basophil percentageon 2021 Basophils/100 WBC (Bld) 2.1 % 0-1 [facility] Work Phone: Eosinophils/100 WBC (Bld) 5.1 % 0-5 [facility] Work Phone: Neutrophils (Bld) [#/Vol] 3.7 10*3/uL 2.0-7.7 [facility] Work Phone: Neutrophils/100 WBC (Bld) 60.6 % 47-70 [facility] Work Phone: WBC (Bld) [#/Vol] 6.1 10*3/uL 4.4-11.0 [facility] Work Phone: Blood erythrocytes count (nu mber/volume)on 09-22-2021 RBC (Bld) [#/Vol] 4.09 10*6/uL 4.6-6.2 [facility] [facility] Work Phone: Blood hemoglobin measurement (mass/volume)on 09-22-2021 Hemoglobin (Bld) [Mass/Vol] 9.1 g/dL 13.0-16.5 [facility] Work Phone: [phone] Blood lymphocytes/100 leukoc yteson 09-22-2021 Lymphocytes/100 WBC (Bld) 24.8 % 19-41 [facility] Work Phone: [phone] Blood monocytes/100 leukocyt eson 09-22-2021 Monocytes/100 WBC (Bld) 6.9 % 0-10 [facility] Work Phone: [phone] Blood platelet mean volumeon 09-22-2021 Platelet mean volume (Bld) [Entitic vol] 9.9 fL 6.2-12.0 [facility] Work Phone: [phone] Determination of erythrocyte mean corpuscular volume (MCV)on 09-22-2021 MCV (RBC) [Entitic vol] 77.5 fL 80-94 [facility] Work Phone: [phone] Hematocrit Auto (Bld) [Volum e fraction]on 09-22-2021 Hematocrit (Bld) [Volume fraction] 31.7 % 40-54 [facility] Work Phone: [phone] Laboratory - Hematology and Cell countson 09-22-2021 Erythrocyte distribution width (RBC) [Entitic vol] 56.2 fL 35.1-43.9 [facility] Work Phone: [phone] Erythrocyte distribution width (RBC) [Ratio] 19.9 % 11.6-14.6 [facility] Work Phone: [phone] Immature granulocytes/100 WBC (Bld) 0.500 % 0.0-0.9 [facility] Work Phone: [phone] Comment on above: IG% - Immature Granu locytes (promyelocytes, myelocytes and metamyelocytes) > 1% indicates that a LEFT SHIFT is Present. MCH (RBC) [Entitic mass] 22.2 pg 27.0-32.0 [facility] Work Phone: [phone] Nucleated RBC/100 WBC (Bld) [Ratio] 0 % 0-5 [facility] Work Phone: MCHC Auto (RBC) [Mass/Vol]on 09-22-2021 MCHC (RBC) [Mass/Vol] 28.7 g/dL 32-36 [facility] Work Phone: Platelets bldon 09-22-2021 Platelets (Bld) [#/Vol] 351 10*3/uL 150-450 [facility] Work Phone: CNPNon 09-21-2021 [facility] Telephone (AGGENS1) PEDRO PABLO SIERRA ([phone]) 1950 M T Date Time Provider Department [...] Date Reviewed: 09/15/2021 Reviewed by: Anjel Braga APRN.LEGAL SERVICES MANAGER - Fully Assessed Reason for [...] [J43.9] - COMPOUNDED PRESCRIPTION Aerosol supplies Dx:J44.1 NPI#[id number] - COMPOUNDED PRESCRIPTION NEBULIZER FOR HOME USE. [...] fem (more content not included)... Normal [facility] Absolute lymphocyte counton 09-17-2021 Lymphocytes Auto (Unsp spec) [#/Vol] 1.19 10*3/uL 0.83-4.51 [facility] Work Phone: Basophil percentageon 2021 Basophil percentage 0-5 SEEN /hpf 0-5 [facility] Work Phone: Basophils/100 WBC (Bld) 1.6 % 0-1 [facility] Work Phone: Bilirubin [Mass/Vol] 0.30 mg/dL 0.20-1.00 [facility] Work Phone: Comment on above: For patients on eltr ombopag therapy, use of Dimension [place] TBIL is not recommended. Chloride [Moles/Vol] 104 mmol/L 98-107 [facility] Work Phone: Eosinophils/100 WBC (Bld) 1.1 % 0-5 [facility] Work Phone: Glucose [Mass/Vol] 100 mg/dL 74-106 [facility] Work Phone: Comment on above: Fasting Glucose resu lt from 100 to 125 mg/dL suggests IMPAIRED HOMEOSTASIS per A.D.A. criteria. Neutrophils (Bld) [#/Vol] 5.2 10*3/uL 2.0-7.7 [facility] Work Phone: Neutrophils/100 WBC (Bld) 73.0 % 47-70 [facility] Work Phone: Potassium [Moles/Vol] 4.2 mmol/L 3.5-5.1 [facility] Work Phone: Protein [Mass/Vol] 7.3 g/dL 6.4-8.2 [facility] Work Phone: [phone] Sodium [Moles/Vol] 136 mmol/L 136-145 [facility] Work Phone: [phone] WBC (Bld) [#/Vol] 7.1 10*3/uL 4.4-11.0 [facility] Work Phone: [phone] Bilirubin Test strip Ql (U)o n 09-17-2021 Bilirubin Ql (U) Negative Negative [facility] Work Phone: [phone] Blood erythrocytes count (nu mber/volume)on 09-17-2021 RBC (Bld) [#/Vol] 3.50 10*6/uL 4.6-6.2 [facility] Work Phone: [phone] Blood hemoglobin measurement (mass/volume)on 09-17-2021 Hemoglobin (Bld) [Mass/Vol] 7.9 g/dL 13.0-16.5 [facility] Work Phone: [phone] Blood lymphocytes/100 leukoc yteson 09-17-2021 Lymphocytes/100 WBC (Bld) 16.9 % 19-41 [facility] Work Phone: [phone] Blood monocytes/100 leukocyt eson 09-17-2021 Monocytes/100 WBC (Bld) 7.1 % 0-10 [facility] Work Phone: [phone] Blood platelet mean volumeon 09-17-2021 Platelet mean volume (Bld) [Entitic vol] 9.5 fL 6.2-12.0 [facility] Work Phone: [phone] Determination of erythrocyte mean corpuscular volume (MCV)on 09-17-2021 MCV (RBC) [Entitic vol] 75.1 fL 80-94 [facility] Work Phone: [phone] Hematocrit Auto (Bld) [Volum e fraction]on 09-17-2021 Hematocrit (Bld) [Volume fraction] 26.3 % 40-54 [facility] Work Phone: [phone] INR in Blood by Coagulation assayon 09-17-2021 INR Coag (Bld) [Relative time] 1.3 {INR} [facility] Work Phone: [phone] Ketones Test strip Ql (U)on 09-17-2021 Ketones Ql (U) Negative Negative [facility] Work Phone: [phone] Laboratory - Chemistry and C hemistry - challengeon 09-17-2021 ALP [Catalytic activity/Vol] 79 U/L 45-117 [facility] Work Phone: [phone] ALT [Catalytic activity/Vol] 36 U/L 16-61 [facility] Work Phone: [phone] CO2 [Moles/Vol] 25.0 mmol/L 21.0-32.0 [facility] Work Phone: [phone] Globulin (S) [Mass/Vol] 3.5 g/dL 2.2-4.2 [facility] Work Phone: [phone] Lipase [Catalytic activity/Vol] 102 U/L 73-393 [facility] Work Phone: [phone] Urea nitrogen/Creatinine [Mass ratio] 12.5 mg/mg 10-20 [facility] Work Phone: [phone] Laboratory - Coagulationon 0 09-17-2021 PT Coag (PPP) [Time] 15.4 s 11.7-14.9 [facility] Work Phone: [phone] Laboratory - Hematology and Cell countson 09-17-2021 Erythrocyte distribution width (RBC) [Entitic vol] 53.1 fL 35.1-43.9 [facility] Work Phone: [phone] Erythrocyte distribution width (RBC) [Ratio] 19.6 % 11.6-14.6 [facility] Work Phone: [phone] Immature granulocytes/100 WBC (Bld) 0.300 % 0.0-0.9 [facility] Work Phone: [phone] Comment on above: IG% - Immature Granu locytes (promyelocytes, myelocytes and metamyelocytes) > 1% indicates that a LEFT SHIFT is Present. MCH (RBC) [Entitic mass] 22.6 pg 27.0-32.0 [facility] Work Phone: Nucleated RBC/100 WBC (Bld) [Ratio] 0 % 0-5 [facility] Work Phone: [phone] MCHC Auto (RBC) [Mass/Vol]on 09-17-2021 MCHC (RBC) [Mass/Vol] 30.0 g/dL 32-36 [facility] Work Phone: Mucus LM Ql (Urine sed)on Mucus Ql (Urine sed) 0 SEEN /hpf [facility] Work Phone: [phone] Nitrite Test strip Ql (U)on 09-17-2021 Nitrite Ql (U) Positive Negative [facility] Work Phone: [phone] Panel Informationon 09-17 Estimated Creatinine Clearance Calc 57.68 ml/min [facility] Work Phone: [phone] Estimated GFR (MDRD) Amer 83 mL/min >60 [facility] Work Phone: [phone] Comment on above: GFR Calc Estimated GFR (MDRD) Non-Af Amer 68 mL/min >60 [facility] Work Phone: [phone] Comment on above: Non- GFR Calc Platelets bldon 09-17-2021 Platelets (Bld) [#/Vol] 342 10*3/uL 150-450 [facility] Work Phone: [phone] Test strip Ql (U)on 09-17-2021 Protein Ql (U) 15 mg/dl Negative [facility] Work Phone: [phone] Serum or plasma albumin luis urement (mass/volume)on 09-17-2021 Albumin [Mass/Vol] 3.8 g/dL 3.2-5.0 [facility] Work Phone: [phone] Serum or plasma albumin/glob ulin mass ratioon 09-17-2021 Albumin/Globulin [Mass ratio] 1.1 {ratio} 0.9-2.4 [facility] Work Phone: [phone] Serum or plasma calcium luis urement (mass/volume)on 09-17-2021 Calcium [Mass/Vol] 8.7 mg/dL 8.5-10.1 [facility] Work Phone: Serum or plasma creatinine m easurement (mass/volume)on 09-17-2021 Creatinine [Mass/Vol] 1.12 mg/dL 0.70-1.30 [facility] Work Phone: Comment on above: The validity of the calculated GFR & GFRAA in patients over 70 years has not been determined. Clinical correlation is essential. Serum or plasma urea nitroge n measurement (mass/volume)on 09-17-2021 Urea nitrogen [Mass/Vol] 14 mg/dL 7-18 [facility] Work Phone: Squamous epithelial cells de tection in urine sediment by light microscopyon 09-17-2021 Epithelial cells.squamous LM Ql (Urine sed) 0-5 SEEN /hpf 0-5 [facility] Work Phone: Thin prep Papanicolaou smear with manual screeningon 09-17-2021 Thin prep Papanicolaou smear with manual screening 19 U/L 15-37 [facility] Work Phone: Thin prep Papanicolaou smear with manual screening 7 5-15 [facility] Work Phone: Urine blood detectionon 04- RBC Ql (U) Negative Negative [facility] Work Phone: RBC Ql (U) 0 SEEN /hpf 0-5 [facility] Work Phone: Urine clarityon 09-17-2021 Clarity (U) Clear Clear [facility] Work Phone: Urine color determinationon 09-17-2021 Color (U) Yellow Yellow [facility] Work Phone: [phone] Urine glucose detectionon Glucose Ql (U) Normal mg/dl Normal [facility] Work Phone: [phone] Urine leukocyte esterase det ection by dipstickon 09-17-2021 Leukocyte esterase Test strip Ql (U) 25 /ul Negative [facility] Work Phone: [phone] Urine pHon 09-17-2021 pH (U) 6.0 [pH] 5.0 - 8.0 [facility] Work Phone: Urine sediment bacteria coun t by microscopy (number/high power field)on 09-17-2021 Bacteria LM.HPF (Urine sed) [#/Area] 1 /[HPF] None Seen [facility] Work Phone: Urine specific gravity measu rementon 09-17-2021 Specific gravity (U) [Rel density] 1.010 1.002-1.030 [facility] Work Phone: Urobilinogen Auto test strip Ql (U)on 09-17-2021 Urobilinogen Ql (U) Normal mg/dl Normal [facility] Work Phone: PT panel Coag (PPP)on 2021 INR Coag (Bld) [Relative time] 2.1 (EXT) 2.0 - 3.0 [facility] UA DIP, URINE (POC)on 2021 BILIRUBIN UA (POCT) Negative Negative [facility] CLARITY UA (POCT) Clear [facility] COLOR UA (POCT) Yellow [facility] GLUCOSE UA (POCT) Negative Negative mg/dL [facility] HEMOGLOBIN/BLOOD UA (POCT) Trace-lysed Abnormal Negative [facility] KETONE UA (POCT) Negative Negative mg/dL [facility] LEUKOCYTES UA (POCT) Small Abnormal Negative [facility] NITRITE UA (POCT) Positive Abnormal Negative [facility] PH UA (POCT) 5.5 4.5 - 8.0 [facility] Protein Ql (U) 100 mg/dL Abnormal Negative mg/dL [facility] SPECIFIC GRAVITY UA (POCT) 1.020 1.005 - 1.030 [facility] UROBILINOGEN UA (POCT) 0.2 E.U./dL Malaika l E.U./dL [facility] Glucose Glucometer (BldC) [M ass/Vol]on 08-21-2021 Glucose [Mass/Vol] 102 mg/dL 74-106 [facility] Work Phone: Comment on above: MANAGEMENT OF PATIEN T CARE PER NURSING PROTOCOL INR in Blood by Coagulation assayon 08-21-2021 INR Coag (Bld) [Relative time] 1.2 {INR} [facility] Work Phone: Laboratory - Coagulationon 0 08-21-2021 PT Coag (PPP) [Time] 14.9 s 11.7-14.9 [facility] Work Phone: Absolute lymphocyte counton 08-20-2021 Lymphocytes Auto (Unsp spec) [#/Vol] 0.77 10*3/uL 0.83-4.51 [facility] Work Phone: Basophil percentageon 2021 Basophils/100 WBC (Bld) 0.8 % 0-1 [facility] Work Phone: Bilirubin [Mass/Vol] 0.70 mg/dL 0.20-1.00 [facility] Work Phone: Comment on above: For patients on eltr ombopag therapy, use of Dimension [place] TBIL is not recommended. Chloride [Moles/Vol] 107 mmol/L 98-107 [facility] Work Phone: Eosinophils/100 WBC (Bld) 2.2 % 0-5 [facility] Work Phone: Glucose [Mass/Vol] 99 mg/dL 74-106 [facility] Work Phone: Neutrophils (Bld) [#/Vol] 4.9 10*3/uL 2.0-7.7 [facility] Work Phone: Neutrophils/100 WBC (Bld) 77.2 % 47-70 [facility] Work Phone: Potassium [Moles/Vol] 3.7 mmol/L 3.5-5.1 [facility] Work Phone: Protein [Mass/Vol] 6.2 g/dL 6.4-8.2 [facility] Work Phone: Sodium [Moles/Vol] 139 mmol/L 136-145 [facility] Work Phone: WBC (Bld) [#/Vol] 6.3 10*3/uL 4.4-11.0 [facility]: Blood erythrocytes count (nu mber/volume)on 08-20-2021 RBC (Bld) [#/Vol] 3.72 10*6/uL 4.6-6.2 [facility] Work [facility]: Blood hemoglobin measurement (mass/volume)on 08-20-2021 Hemoglobin (Bld) [Mass/Vol] 7.8 g/dL 13.0-16.5 [facility] Work Phone: [phone] Blood lymphocytes/100 leukoc yteson 08-20-2021 Lymphocytes/100 WBC (Bld) 12.2 % 19-41 [facility] Work Phone: [phone] Blood monocytes/100 leukocyt eson 08-20-2021 Monocytes/100 WBC (Bld) 6.8 % 0-10 [facility] Work Phone: Blood platelet mean volumeon 08-20-2021 Platelet mean volume (Bld) [Entitic vol] 9.7 fL 6.2-12.0 [facility] Work Phone: [phone] Determination of erythrocyte mean corpuscular volume (MCV)on 08-20-2021 MCV (RBC) [Entitic vol] 72.8 fL 80-94 [facility] Work Phone: Hematocrit Auto (Bld) [Volum e fraction]on 08-20-2021 Hematocrit (Bld) [Volume fraction] 27.1 % 40-54 [facility] Work Phone: Laboratory - Chemistry and C hemistry - challengeon 08-20-2021 ALP [Catalytic activity/Vol] 224 U/L 45-117 [facility] Work Phone: ALT [Catalytic activity/Vol] 335 U/L 16-61 [facility] Work Phone: [phone] CO2 [Moles/Vol] 27.0 mmol/L 21.0-32.0 [facility] Work Phone: Globulin (S) [Mass/Vol] 3.5 g/dL 2.2-4.2 [facility] Work Phone: [phone] Urea nitrogen/Creatinine [Mass ratio] 11.9 mg/mg 10-20 [facility] Work Phone: [phone] Laboratory - Hematology and Cell countson 08-20-2021 Erythrocyte distribution width (RBC) [Entitic vol] 50.8 fL 35.1-43.9 [facility] Work Phone: [phone] Erythrocyte distribution width (RBC) [Ratio] 19.5 % 11.6-14.6 [facility] Work Phone: [phone] Immature granulocytes/100 WBC (Bld) 0.800 % 0.0-0.9 [facility] Work Phone: [phone] Comment on above: IG% - Immature Granu locytes (promyelocytes, myelocytes and metamyelocytes) > 1% indicates that a LEFT SHIFT is Present. MCH (RBC) [Entitic mass] 21.0 pg 27.0-32.0 [facility] Work Phone: [phone] Nucleated RBC/100 WBC (Bld) [Ratio] 0 % 0-5 [facility] Work Phone: [phone] MCHC Auto (RBC) [Mass/Vol]on 08-20-2021 MCHC (RBC) [Mass/Vol] 28.8 g/dL 32-36 [facility] Work Phone: [phone] Panel Informationon 08-20 Estimated Creatinine Clearance Calc 63.96 ml/min [facility] Work Phone: [phone] Estimated GFR (MDRD) Amer 93 mL/min >60 [facility] Work Phone: [phone] Comment on above: GFR Calc Estimated GFR (MDRD) Non-Af Amer 77 mL/min >60 [facility] Work Phone: [phone] Comment on above: Non- GFR Calc Platelets bldon 08-20-2021 Platelets (Bld) [#/Vol] 409 10*3/uL 150-450 [facility] Work Phone: Serum or plasma albumin luis urement (mass/volume)on 08-20-2021 Albumin [Mass/Vol] 2.7 g/dL 3.2-5.0 [facility] Work Phone: [phone] Serum or plasma albumin/glob ulin mass ratioon 08-20-2021 Albumin/Globulin [Mass ratio] 0.8 {ratio} 0.9-2.4 [facility] Work Phone: [phone] Serum or plasma calcium luis urement (mass/volume)on 08-20-2021 Calcium [Mass/Vol] 7.9 mg/dL 8.5-10.1 [facility] Work Phone: Serum or plasma creatinine m easurement (mass/volume)on 08-20-2021 Creatinine [Mass/Vol] 1.01 mg/dL 0.70-1.30 [facility] Work Phone: Comment on above: The validity of the calculated GFR & GFRAA in patients over 70 years has not been determined. Clinical correlation is essential. Serum or plasma urea nitroge n measurement (mass/volume)on 08-20-2021 Urea nitrogen [Mass/Vol] 12 mg/dL 7-18 [facility] Work Phone: [phone] Thin prep Papanicolaou smear with manual screeningon 08-20-2021 Thin prep Papanicolaou smear with manual screening 150 U/L 15-37 [facility] Work Phone: Thin prep Papanicolaou smear with manual screening 5 5-15 [facility] Work Phone: [phone] Laboratory - Coagulationon 0 08-19-2021 aPTT Coag (Bld) [Time] 37.1 s 24.1-36.2 [facility] Work Phone: No Panel Informationon 08-19 Troponin I High Sensitivity 15 pg/mL 3.0-78.0 [facility] Work Phone: Comment on above: Please Note: New [place] t Units and Gender Specific Reference Ranges. For more information see Policy Stat Procedure [place] High Sensitivity Troponin (TNIH) and attachments. Whole blood hemoglobin A1c/t otal hemoglobin ratio (mass fraction)on 08-19-2021 HbA1c (Bld) [Mass fraction] 6.0 % 3.8-5.6 [facility] Work Phone: Comment on above: Normal < 5.7 % Predi abetic 5.7 - 6.4 % Diabetic >or= 6.5 % Please note range changes. Blood manual differential co mment interpretation (narrative result)on 08-18-2021 Manual differential comment Ghassan (Bld) [Interp] SCANNED [facility] Work Phone: Comment on above: LYMPHOPENIA NOTED Direct bilirubinon Bilirubin.direct [Mass/Vol] 0.89 mg/dL 0.00-0.30 [facility] Work Phone: Laboratory - Chemistry and C hemistry - challengeon 08-18-2021 Lipase [Catalytic activity/Vol] 134 U/L 73-393 [facility] Work Phone: Absolute lymphocyte counton 08-12-2021 Lymphocytes Auto (Unsp spec) [#/Vol] 0.44 10*3/uL 0.83-4.51 [facility] Work Phone: Basophil percentageon 2021 Basophils/100 WBC (Bld) 0.6 % 0-1 [facility] Work Phone: Bilirubin [Mass/Vol] 0.30 mg/dL 0.20-1.00 [facility] Work Phone: Comment on above: For patients on eltr ombopag therapy, use of Dimension [place] TBIL is not recommended. Chloride [Moles/Vol] 101 mmol/L 98-107 [facility] Work Phone: Eosinophils/100 WBC (Bld) 0.0 % 0-5 [facility] Work Phone: Glucose [Mass/Vol] 162 mg/dL 74-106 [facility] Work Phone: Comment on above: Fasting Glucose resu lt greater than or equal to 126 mg/dL suggests DIABETES MELLITUS per A.D.A. criteria. Neutrophils (Bld) [#/Vol] 9.7 10*3/uL 2.0-7.7 [facility] Work Phone: Neutrophils/100 WBC (Bld) 93.3 % 47-70 [facility] Work Phone: Potassium [Moles/Vol] 3.8 mmol/L 3.5-5.1 [facility] Work Phone: Protein [Mass/Vol] 8.1 g/dL 6.4-8.2 [facility] Work Phone: Sodium [Moles/Vol] 135 mmol/L 136-145 [facility] Work Phone: WBC (Bld) [#/Vol] 10.4 10*3/uL 4.4-11.0 [facility] Work Phone: Blood erythrocytes count (nu mber/volume)on 08-12-2021 RBC (Bld) [#/Vol] 4.84 10*6/uL 4.6-6.2 [facility] Work Phone: Blood hemoglobin measurement (mass/volume)on 08-12-2021 Hemoglobin (Bld) [Mass/Vol] 10.4 g/dL 13.0-16.5 [facility] Work Phone: Blood lymphocytes/100 leukoc yteson 08-12-2021 Lymphocytes/100 WBC (Bld) 4.2 % 19-41 [facility] Work Phone: Blood monocytes/100 leukocyt eson 08-12-2021 Monocytes/100 WBC (Bld) 1.4 % 0-10 [facility] Work Phone: Blood platelet mean volumeon 08-12-2021 Platelet mean volume (Bld) [Entitic vol] 10.3 fL 6.2-12.0 [facility] Work Phone: Determination of erythrocyte mean corpuscular volume (MCV)on 08-12-2021 MCV (RBC) [Entitic vol] 74.8 fL 80-94 [facility] Work Phone: Hematocrit Auto (Bld) [Volum e fraction]on 08-12-2021 Hematocrit (Bld) [Volume fraction] 36.2 % 40-54 [facility] Work Phone: INR in Blood by Coagulation assayon 08-12-2021 INR Coag (Bld) [Relative time] 2.1 {INR} [facility] Work Phone: Laboratory - Chemistry and C hemistry - challengeon 08-12-2021 ALP [Catalytic activity/Vol] 70 U/L 45-117 [facility] Work Phone: ALT [Catalytic activity/Vol] 19 U/L 16-61 [facility] Work Phone: CO2 [Moles/Vol] 26.0 mmol/L 21.0-32.0 [facility] Work Phone: Globulin (S) [Mass/Vol] 3.9 g/dL 2.2-4.2 [facility] Work Phone: Lipase [Catalytic activity/Vol] 46 U/L 73-393 [facility] Work Phone: Urea nitrogen/Creatinine [Mass ratio] 9.0 mg/mg 10-20 [facility] Work Phone: Laboratory - Coagulationon 0 08-12-2021 PT Coag (PPP) [Time] 23.1 s 11.7-14.9 [facility] Work Phone: Laboratory - Hematology and Cell countson 08-12-2021 Anisocytosis Ql (Bld) 1+ [facility] Work Phone: Erythrocyte distribution width (RBC) [Entitic vol] 50.2 fL 35.1-43.9 [facility] Work Phone: Erythrocyte distribution width (RBC) [Ratio] 18.7 % 11.6-14.6 [facility] Work Phone: Immature granulocytes/100 WBC (Bld) 0.500 % 0.0-0.9 [facility] Work Phone: Comment on above: IG% - Immature Granu locytes (promyelocytes, myelocytes and metamyelocytes) > 1% indicates that a LEFT SHIFT is Present. MCH (RBC) [Entitic mass] 21.5 pg 27.0-32.0 [facility] Work Phone: Nucleated RBC/100 WBC (Bld) [Ratio] 0 % 0-5 [facility] Work Phone: MCHC Auto (RBC) [Mass/Vol]on 08-12-2021 MCHC (RBC) [Mass/Vol] 28.7 g/dL 32-36 [facility] Work Phone: No Panel Informationon 08-12 Estimated Creatinine Clearance Calc 58.20 ml/min [facility] Work Phone: Estimated GFR (MDRD) Amer 84 mL/min >60 [facility] Work Phone: Comment on above: GFR Calc Estimated GFR (MDRD) Non-Af Amer 69 mL/min >60 [facility] Work Phone: Comment on above: Non- GFR Calc Platelets bldon 08-12-2021 Platelets (Bld) [#/Vol] 401 10*3/uL 150-450 [facility] Work Phone: Serum or plasma albumin luis urement (mass/volume)on 08-12-2021 Albumin [Mass/Vol] 4.2 g/dL 3.2-5.0 [facility] Work Phone: Serum or plasma albumin/glob ulin mass ratioon 08-12-2021 Albumin/Globulin [Mass ratio] 1.1 {ratio} 0.9-2.4 [facility] Work Phone: [phone] Serum or plasma calcium luis urement (mass/volume)on 08-12-2021 Calcium [Mass/Vol] 9.4 mg/dL 8.5-10.1 [facility] Work Phone: [phone] Serum or plasma creatinine m easurement (mass/volume)on 08-12-2021 Creatinine [Mass/Vol] 1.11 mg/dL 0.70-1.30 [facility] Work Phone: Comment on above: The validity of the calculated GFR & GFRAA in patients over 70 years has not been determined. Clinical correlation is essential. Serum or plasma urea nitroge n measurement (mass/volume)on 08-12-2021 Urea nitrogen [Mass/Vol] 10 mg/dL 7-18 [facility] Work Phone: Thin prep Papanicolaou smear with manual screeningon 08-12-2021 Thin prep Papanicolaou smear with manual screening 1+ [facility] Work Phone: Thin prep Papanicolaou smear with manual screening 15 U/L 15-37 [facility] Work Phone: Thin prep Papanicolaou smear with manual screening 8 5-15 [facility] Work Phone: CNCOon 02-11-[address] [facility] CNPNon 02-11-2021 CNPN Telephone (SPAGWO) PEDRO PABLO SIERRA ([id number]) 1950 M Date Time Provider Department 02/11/21 [...] Yes Is this the Third or Fourth "No Show"? No Mago Fay February 11, 2021 1:29 [...] [J43.9] - COMPOUNDED PRESCRIPTION Aerosol supplies Dx:J44.1 NPI#[id number] - ipratropium-albuterol (DUONEB) 0.5 mg-3 mg(2.5 mg [...] FOLLOW-UP (more content not included)... Normal [facility] XR Femur - left AP and Later lonny 11-11-2020 IMPRESSION: 1. No radiographic evidence of acute osseous abnormality. 2. Atherosclerotic disease. Licensed Staff Mft: SHANELL Transcribe Date/Time: Nov 11 2020 10:50A Dictated by : RONALD COLUNGA MD This examination was interpreted and the report reviewed and electronically signed by: RONALD COLUNGA MD on Nov 11 2020 10:53AM [facility] DIVISION OF RADIOLOGY * * *Final [...] of acute osseous abnormality. 2. Atherosclerotic disease. Licensed Staff Mft: SHANELL Transcribe Date/Time: Nov 11 2020 10:50A Dictated by : RONALD COLUNGA MD This examination was interpreted and the report reviewed and electronically signed by: RONALD COLUNGA MD on Nov 11 2020 10:53AM EST [facility] Radiology Study observation (narrative) [facility] XR Femur - left AP and Later alOrdered By: Ccf Provider on 11-11-2020 [facility] CBC and Differentialon 04-10 Abs Baso 0.10 k/uL Normal <0.11 [facility] Abs [place] 0.44 k/uL Normal <0.87 [facility] Abs Neut 4.50 k/uL Normal 1.45-7.50 [facility] Absolute nRBC <0.01 Normal <0.01 [facility] Basophils/100 WBC (Bld) 1.4 % Normal [facility] DTYPE Auto Diff Normal [facility] Eosinophils (Bld) [#/Vol] 0.06 10*3/uL Normal <0.46 [facility] Eosinophils/100 WBC (Bld) 0.9 % Normal [facility] Erythrocyte distribution width (RBC) [Ratio] 21.0 % High 11.5-15.0 [facility] Hematocrit (Bld) [Volume fraction] 39.7 % Normal 39.0-51.0 [facility] Hemoglobin (Bld) [Mass/Vol] 11.3 g/dL Low 13.0-17.0 [facility] Lymphocytes (Bld) [#/Vol] 1.81 10*3/uL Normal 1.00-4.00 [facility] Lymphocytes/100 WBC (Bld) 26.2 % Normal [facility] MCH (RBC) [Entitic mass] 21.6 pG Low 26.0-34.0 [facility] MCHC (RBC) [Mass/Vol] 28.5 g/dL Low 30.5-36.0 [facility] MCV (RBC) [Entitic vol] 76.1 fL Low 80.0-100.0 [facility] Monocytes/100 WBC (Bld) 6.4 % Normal [facility] Neutrophils/100 WBC (Bld) 65.1 % Normal [facility] NRBCs 0.0 /100 WBC Normal 0 [facility] Platelet mean volume (Bld) [Entitic vol] 9.9 fL Normal 9.0-12.7 [facility] Platelets (Bld) [#/Vol] 302 10*3/uL Normal 150-400 [facility] RBC (Bld) [#/Vol] 5.22 10*6/uL Normal 4.20-6.00 [facility] WBC (Bld) [#/Vol] 6.91 10*3/uL Normal 3.70-11.[address] [facility] [address] BRAIN WO IVCONon 04-10-20 CT BRAIN WO IVCON * * *Final Report* * * DATE OF EXAM: Apr 10 2020 3:59PM [facility] 0504 - CT BRAIN WO IVCON [...] base and imaged soft tissues are unremarkable. Public Health Doctor (topogram) images: No additional findings. IMPRESSION: NO CT EVIDENCE OF ACUTE INTRACRANIAL PROCESS. Licensed Staff Mft: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 Text: SURGICAL INTENSIVE CARE UNIT PROGRESS NOTE Pedro Pablo Sierra [id number] Admit Date: 10/17/2019 1:34 AM Vocational Horticulture Instructor: Dr. Huntley Surgeon: Dr. Lopez Operation: 10/18/2019 Left groin exploration, hematoma evacuation, debridement of soft tissues, washout; Sarotorius flap, wound vac placement. REASON FOR ICU ADMISSION: Neurovascular monitoring History: Pedro Pablo Sierra is a 69 year old male with a h/o CAD c/b IL, HTN, COPD, DM, seizure disorder. Underwent L CF endart with bovine patch redo. Thrombectomy L RADHA, EIA, Left RADHA and EIA stent. He returned to the OR 2 days later for exploration and revasc due to occluded ENROLLMENT MANAGEMENT VICE PRESIDENT. In the OR, he underwent hematoma evacuation,?Left EIA to ENROLLMENT MANAGEMENT VICE PRESIDENT bypass with 7mm ringed PTFE, retrograde open [...] gabapentin, mirtazapine, carbamazepine, bentyl. ? Cardiovascular h/o [place] HDS Plan: - Maintain MAPs >65 - [...] Vanesa Roberts MD General Surgery PGY-2 iPhone: [phone] October 21, 2019 [facility] STAFF PHYSICIAN NOTE OF PERSONAL INVOLVEMENT [...] Huntley DO 1:42 PM October 21, 2019 [facility] PROGRESS HNO ID: [id number] Author: Lesly Salvador Service: Vascular Surgery Author [...] -- 10/17/19 0215 vte current anticoag therapy ([place]) 10/17/19 021 pneumatic compression stockings ([place]) VTE Prophylaxis: VTE prophylaxis appropriate ALLERGIES No Known Allergies Objective PHYSICAL EXAM: Patient Vitals for the past 24 hrs: BP 111/82 Pulse 64 Temp 36.4 ?C (97.5 ?F) (Axillary) Resp 16 Ht 172.7 cm (5' 8") Wt 79.8 kg (175 lb 14.8 oz) SpO2 97% BMI 26.75 kg/m? Intake/Output Summary (Last 24 hours) at 10/21/2019 09 Last data filed at 10/21/2019 0909 Gross [...] on 10/10/19 for hematoma evacuation,?Left EIA to ENROLLMENT MANAGEMENT VICE PRESIDENT bypass with 7mm ringed PTFE, retrograde open [...] 21, 2019 TIME: 9:22 AM PAGER/CONTACT #: ETX#[phone] I agree with the above note. The [...] time. The patient understands and agrees. Normal [facility] PTT,Anticoag Therapyon 10-20 aPTT Coag (Bld) [Time] 37.0 s High 23.0-32.4 [facility] Comment on above: Result Comment: Unfr actionated [...] laboratory APTT reagent in use throughout the [facility]. Performed By: #### P TTAC ####[id number] [place], [place] [phone] aPTT Coag (Bld) [Time] 68.6 s High 23.0-32.4 [facility] Comment on above: Result Comment: Unfr actionated [...] laboratory APTT reagent in use throughout the [facility]. Performed By: #### P TTAC ####[facility] [place], [place] [phone] aPTT Coag (Bld) [Time] 44.0 s High 23.0-32.4 [facility] Comment on above: Result Comment: Unfr actionated [...] laboratory APTT reagent in use throughout the [facility]. Performed By: #### P TTAC ####[id number] [place], [place] [phone] Vancomycinon 10-21-2019 Vancomycin 16.3 ug/mL Normal 10.0-20.0 [facility] Comment on above: Result Comment: Refe rence ranges and high/low indicator flags are provided as general guidelines only. The treating physician must determine appropriate target levels/dosing based on the specific clinical situation. Performed By: #### V ANCRA ####[address] [phone] APTTon 10-20-2019 aPTT Coag (Bld) [Time] 30.3 s Normal 23.0-32.4 [facility] Comment on above: Result Comment: Unfr actionated [...] laboratory APTT reagent in use throughout the [facility]. Performed By: #### B MP, PTT ####[address] [phone] Basic Metabolic Panlon 10-19 Anion gap [Moles/Vol] 9 mmol/L Normal 9-18 [facility] Comment on above: Performed By: #### B MP, PTT ####[address] [place], [place] [phone] Calcium [Mass/Vol] 8.6 mg/dL Normal 8.5-10.5 [facility] Comment on above: Performed By: #### B MP, PTT ####[address] [place], [place] [phone] Chloride [Moles/Vol] 103 mmol/L Normal 98-110 [facility] Comment on above: Performed By: #### B MP, PTT ####[address] [phone] CO2 [Moles/Vol] 28 mmol/L Normal 23-32 [facility] Comment on above: Performed By: #### B MP, PTT ####[place] [phone] Creatinine [Mass/Vol] 0.90 mg/dL Normal 0.70-1.40 [facility] Comment on above: Performed By: #### B MP, PTT ####[place] [phone] eGFR- Amer. >60 Normal >60 [facility] Comment on above: Performed By: #### B MP, PTT ####[place] [phone] GFR/1.73 sq M predicted among non-blacks MDRD (S/P/Bld) [Vol rate/Area] mL/min/{1.73_m2} Normal >60 [facility] Comment on above: Performed By: #### B MP, PTT ####[place] [phone] Glucose [Mass/Vol] 121 mg/dL High 65-100 [facility] Comment on above: Performed By: #### B MP, PTT ####[place] [phone] Potassium [Moles/Vol] 3.7 mmol/L Normal 3.5-5.0 [facility] Comment on above: Performed By: #### B MP, PTT ####[place] [phone] Sodium [Moles/Vol] 140 mmol/L Normal 135-146 [facility] Comment on above: Performed By: #### B MP, PTT ####[id number] [place] [phone] Urea nitrogen [Mass/Vol] 11 mg/dL Normal 10-25 [facility] Comment on above: Performed By: #### B MP, PTT ####[place] [phone] CBCon 10-20-2019 Erythrocyte distribution width (RBC) [Ratio] 17.2 % High 11.5-15.0 [facility] Comment on above: Performed By: #### C BC, PT, PTTAC ####[place] [phone] Hematocrit (Bld) [Volume fraction] 29.0 % Low 39.0-51.0 [facility] Comment on above: Performed By: #### C BC, PT, PTTAC ####[place] [phone] Hemoglobin (Bld) [Mass/Vol] 9.1 g/dL Low 13.0-17.0 [facility] Comment on above: Performed By: #### C BC, PT, PTTAC ####[place] [phone] MCH (RBC) [Entitic mass] 30.3 pG Normal 26.0-34.0 [facility] Comment on above: Performed By: #### C BC, PT, PTTAC ####[place] [phone] MCHC (RBC) [Mass/Vol] 31.4 g/dL Normal 30.5-36.0 [facility] Comment on above: Performed By: #### C BC, PT, PTTAC ####[place] [phone] MCV (RBC) [Entitic vol] 96.7 fL Normal 80.0-100.0 [facility] Comment on above: Performed By: #### C BC, PT, PTTAC ####[place] [phone] Platelet mean volume (Bld) [Entitic vol] 9.3 fL Normal 9.0-12.7 [facility] Comment on above: Performed By: #### C BC, PT, PTTAC ####[place] [phone] Platelets (Bld) [#/Vol] 437 10*3/uL High 150-400 [facility] Comment on above: Performed By: #### C BC, PT, PTTAC ####[place] [phone] RBC (Bld) [#/Vol] 3.00 10*6/uL Low 4.20-6.00 [facility] Comment on above: Performed By: #### C BC, PT, PTTAC ####[place] [phone] WBC (Bld) [#/Vol] 5.68 10*3/uL Normal 3.70-11.00 [facility] Comment on above: Performed By: #### C BC, PT, PTTAC ####[place] [phone] CBC and Differentialon 10-19 Abs Baso 0.06 k/uL Normal <0.11 [facility] Comment on above: Performed By: #### C BCDIF ####[place] [phone] Abs [place] 0.56 k/uL Normal <0.87 [facility] Comment on above: Performed By: #### C BCDIF ####[place] [phone] Abs Neut 4.13 k/uL Normal 1.45-7.50 [facility] Comment on above: Performed By: #### C BCDIF ####[place] [phone] Basophils/100 WBC (Bld) 1.0 % Normal [facility] Comment on above: Performed By: #### C BCDIF ####[place] [phone] DTYPE Auto Diff Normal [facility] Comment on above: Performed By: #### C BCDIF ####[place] [phone] Eosinophils (Bld) [#/Vol] 0.37 10*3/uL Normal <0.46 [facility] Comment on above: Performed By: #### C BCDIF ####[place] [phone] Eosinophils/100 WBC (Bld) 6.1 % Normal [facility] Comment on above: Performed By: #### C BCDIF ####[place] [phone] Erythrocyte distribution width (RBC) [Ratio] 17.3 % High 11.5-15.0 [facility] Comment on above: Performed By: #### C BCDIF ####[place] [phone] Hematocrit (Bld) [Volume fraction] 28.9 % Low 39.0-51.0 [facility] Comment on above: Performed By: #### C BCDIF ####[place] [phone] Hemoglobin (Bld) [Mass/Vol] 8.9 g/dL Low 13.0-17.0 [facility] Comment on above: Performed By: #### C BCDIF ####[place] [phone] Lymphocytes (Bld) [#/Vol] 0.99 10*3/uL Low 1.00-4.00 [facility] Comment on above: Performed By: #### C BCDIF ####[place] [phone] Lymphocytes/100 WBC (Bld) 16.2 % Normal [facility] Comment on above: Performed By: #### C BCDIF ####[place] [phone] MCH (RBC) [Entitic mass] 29.7 pG Normal 26.0-34.0 [facility] Comment on above: Performed By: #### C BCDIF ####[place] [phone] MCHC (RBC) [Mass/Vol] 30.8 g/dL Normal 30.5-36.0 [facility] Comment on above: Performed By: #### C BCDIF ####[place] [phone] MCV (RBC) [Entitic vol] 96.3 fL Normal 80.0-100.0 [facility] Comment on above: Performed By: #### C BCDIF ####[place] [phone] Monocytes/100 WBC (Bld) 9.2 % Normal [facility] Comment on above: Performed By: #### C BCDIF ####[place] [phone] Neutrophils/100 WBC (Bld) 67.5 % Normal [facility] Comment on above: Performed By: #### C BCDIF ####[place] [phone] Platelet mean volume (Bld) [Entitic vol] 9.3 fL Normal 9.0-12.7 [facility] Comment on above: Performed By: #### C BCDIF ####[place] [phone] Platelets (Bld) [#/Vol] 454 10*3/uL High 150-400 [facility] Comment on above: Performed By: #### C BCDIF ####[place] [phone] RBC (Bld) [#/Vol] 3.00 10*6/uL Low 4.20-6.00 [facility] Comment on above: Performed By: #### C BCDIF ####[place] [phone] WBC (Bld) [#/Vol] 6.11 10*3/uL Normal 3.70-11.00 [facility] Comment on above: Performed By: #### C BCDIF ####[place] [phone] NURSING PROGon 10-20-2019 NURSING PROG HNO ID: [id number] Author: Cornelius (Rn) ESYMOUR Gonzalez Service: Nursing Author Type: Registered Nurse Type: Nursing Progress Note Filed: 10/20/2019 6:11 PM Note Text: Nursing Progress Note Patient Name: Pedro Pablo Sierra Patient Location: [place] [address]/[place] [address] __ Daily Note: 0700 Bedside report received from previous shift RN. 0800 Assessment completed and charted. Neuro intact. VSS. Heparin gtt infusing. See flowsheets. 1200 Reassessment completed and charted. 1600 Reassessment completed and charted. 1900 Bedside report given to oncoming RN. This note was completed by: Cornelius Gonzalez, RN [facility] NURSING PROG HNO ID: [id number] Author: Mackenzie (Rn) SEYMOUR Valero Service: Nursing Author Type: Registered Nurse Type: Nursing Progress Note Filed: 10/19/2019 11:30 PM Note Text: Nursing Progress Note Patient Name: Pedro Pablo Sierra Patient Location: [id number]/[place] [address] __ Daily Note: 2305 Pt x-, Joseph Yony called for update [...] changed over. Pt is telling x- to "shut up" and then hangs up on her and [...] note was completed by: Mackenzie Valero RN [facility] PROGRESSon 10-20-2019 PROGRESS HNO ID: [id number] Author: Deni Barriga) Naima Service: Critical Care Author Type: Anesthesiologist Type: Progress Notes Filed: 10/20/2019 12:10 PM Note Text: SICU PROGRESS NOTE SERVICE DATE: October 20, 2019 SERVICE TIME: 11:34 AM SUBJECTIVE Interval events (last 24 hours) / Pertinent ROS: No acute events overnight. OBJECTIVE VITAL SIGNS: BP 113/55 Pulse 66 Temp 36.6 ?C (97.8 ?F) (Oral) Resp 16 Ht 172.7 cm (5' 8") Wt 79.8 kg (175 lb 14.8 oz) [...] 20, 2019 TIME: 11:34 AM PAGER/CONTACT #: [phone] [facility] PROGRESS HNO ID: [id number] Author: Florence Roman (Pharmacist) Service: Pharmacy Author [...] please contact Florence Roman PharmD at mobile [phone]. Age: [age] year old Allergies: ALLERGIES No Known Allergies Last 3 Encounter Wt Readings: Date: Wt: 10/16/2019 79.8 kg (175 lb 14.8 oz) 09/12/2019 76.7 kg (169 lb) 09/02/2019 77.2 kg (170 lb 1.6 oz) Last 1 Encounter Ht Readings: Date: Ht: 10/16/2019 172.7 cm (5' 8") CrCl: Estimated Creatinine Clearance: 73.9 mL/min (based [...] 1112 28.0 (H) Florence Roman, Pharm D, [facility] PROGRESS HNO ID: [id number] Author: Lesly Salvador Service: Vascular Surgery Author [...] -- 10/17/19 0215 vte current anticoag therapy ([place], [place]) 10/17/19 021 pneumatic compression stockings ([place], [place]) VTE Prophylaxis: VTE prophylaxis appropriate ALLERGIES No Known Allergies Objective PHYSICAL EXAM: Patient Vitals for the past 24 hrs: BP 123/72 Pulse 66 Temp 36.5 ?C (97.7 ?F) (Oral) Resp 16 Ht 172.7 cm (5' 8") Wt 79.8 kg (175 lb 14.8 oz) [...] on 10/10/19 for hematoma evacuation,?Left EIA to ENROLLMENT MANAGEMENT VICE PRESIDENT bypass with 7mm ringed PTFE, retrograde open [...] 19, 2019 TIME: 6:52 AM PAGER/CONTACT #: [phone] Pt seen and examined. Stable exam since [...] MD October 20, 2019 5:02 PM Normal [facility] PTT,Anticoag Therapyon 10-19 aPTT Coag (Bld) [Time] 33.3 s High 23.0-32.4 [facility] Comment on above: Result Comment: Unfr actionated [...] laboratory APTT reagent in use throughout the [facility]. Performed By: #### P TTAC ####[address] [phone] aPTT Coag (Bld) [Time] 28.9 s Normal 23.0-32.4 [facility] Comment on above: Result Comment: Unfr actionated [...] laboratory APTT reagent in use throughout the [facility]. Performed By: #### C BC, PT, PTTAC ####[address] [phone] Protimeon 10-20-2019 PT Coag (PPP) [Time] 11.1 s Normal 9.7-13.0 [facility] Comment on above: Performed By: #### C BC, PT, PTTAC ####[address] [phone] PT Coag (PPP) [Time] 1.0 s Normal 0.9-1.3 [facility] Comment on above: Result Comment: Teri min K Antagonist (VKA) Therapeutic Range: INR 2 to 3 (Target INR of 2.5) Note: For patients treated with VKA drugs, such as warfarin, the [place] [employer] 2012 Guideline recommends [...] Chest 2012, 141:7S-47S Gio RA, et al. [facility] 2017, 70: 252-289 Performed By: #### C BC, PT, PTTAC ####[place] [phone] Basic Metabolic Panlon 10-18 Anion gap [Moles/Vol] 14 mmol/L Normal 9-18 [facility] Comment on above: Performed By: #### B MP ####[place] [phone] Calcium [Mass/Vol] 8.0 mg/dL Low 8.5-10.5 [facility] Comment on above: Performed By: #### B MP ####[place] [phone] Chloride [Moles/Vol] 101 mmol/L Normal 98-110 [facility] Comment on above: Performed By: #### B MP ####[place] [phone] CO2 [Moles/Vol] 25 mmol/L Normal 23-32 [facility] Comment on above: Performed By: #### B MP ####[place] [phone] Creatinine [Mass/Vol] 0.83 mg/dL Normal 0.70-1.40 [facility] Comment on above: Result Comment: Revi ewed Performed By: #### B MP ####[place] [phone] eGFR- Amer. >60 Normal >60 [facility] Comment on above: Performed By: #### B MP ####[place] [phone] GFR/1.73 sq M predicted among non-blacks MDRD (S/P/Bld) [Vol rate/Area] mL/min/{1.73_m2} Normal >60 [facility] Comment on above: Performed By: #### B MP ####[place] [phone] Glucose [Mass/Vol] 110 mg/dL High 65-100 [facility] Comment on above: Performed By: #### B MP ####[place] [phone] Potassium [Moles/Vol] 3.5 mmol/L Normal 3.5-5.0 [facility] Comment on above: Performed By: #### B MP ####[place] [phone] Sodium [Moles/Vol] 140 mmol/L Normal 135-146 [facility] Comment on above: Performed By: #### B MP ####[phone] Urea nitrogen [Mass/Vol] 8 mg/dL Low 10-25 [facility] Comment on above: Performed By: #### B MP ####[place] [phone] CBC and Differentialon 10-18 Abs Baso 0.03 k/uL Normal <0.11 [facility] Comment on above: Performed By: #### C BCDIF ####[place] [phone] Abs [place] 0.46 k/uL Normal <0.87 [facility] Comment on above: Performed By: #### C BCDIF ####[place] [phone] Abs Neut 4.79 k/uL Normal 1.45-7.50 [facility] Comment on above: Performed By: #### C BCDIF ####[place] [phone] Basophils/100 WBC (Bld) 0.4 % Normal [facility] Comment on above: Performed By: #### C BCDIF ####[place] [phone] DTYPE Auto Diff Normal [facility] Comment on above: Performed By: #### C BCDIF ####[place] [phone] Eosinophils (Bld) [#/Vol] 0.27 10*3/uL Normal <0.46 [facility] Comment on above: Performed By: #### C BCDIF ####[place] [phone] Eosinophils/100 WBC (Bld) 4.0 % Normal [facility] Comment on above: Performed By: #### C BCDIF ####[place] [phone] Erythrocyte distribution width (RBC) [Ratio] 17.2 % High 11.5-15.0 [facility] Comment on above: Performed By: #### C BCDIF ####[place] [phone] Hematocrit (Bld) [Volume fraction] 28.5 % Low 39.0-51.0 [facility] Comment on above: Performed By: #### C BCDIF ####[place] [place] [phone] Hemoglobin (Bld) [Mass/Vol] 8.8 g/dL Low 13.0-17.0 [facility] Comment on above: Performed By: #### C BCDIF ####[place] [phone] Lymphocytes (Bld) [#/Vol] 1.17 10*3/uL Normal 1.00-4.00 [facility] Comment on above: Performed By: #### C BCDIF ####[place] [phone] Lymphocytes/100 WBC (Bld) 17.4 % Normal [facility] Comment on above: Performed By: #### C BCDIF ####[place] [phone] MCH (RBC) [Entitic mass] 29.6 pG Normal 26.0-34.0 [facility] Comment on above: Performed By: #### C BCDIF ####[place] [phone] MCHC (RBC) [Mass/Vol] 30.9 g/dL Normal 30.5-36.0 [facility] Comment on above: Performed By: #### C BCDIF ####[place] [phone] MCV (RBC) [Entitic vol] 96.0 fL Normal 80.0-100.0 [facility] Comment on above: Performed By: #### C BCDIF ####[place] [phone] Monocytes/100 WBC (Bld) 6.8 % Normal [facility] Comment on above: Performed By: #### C BCDIF ####[place] [phone] Neutrophils/100 WBC (Bld) 71.4 % Normal [facility] Comment on above: Performed By: #### C BCDIF ####[place] [phone] Platelet mean volume (Bld) [Entitic vol] 9.4 fL Normal 9.0-12.7 [facility] Comment on above: Performed By: #### C BCDIF ####[place] [phone] Platelets (Bld) [#/Vol] 425 10*3/uL High 150-400 [facility] Comment on above: Performed By: #### C BCDIF ####[facility] [place], [place] [phone] RBC (Bld) [#/Vol] 2.97 10*6/uL Low 4.20-6.00 [facility] Comment on above: Performed By: #### C BCDIF ####[place] [id number] [place], [place] [phone] WBC (Bld) [#/Vol] 6.72 10*3/uL Normal 3.70-11.00 [facility] Comment on above: Performed By: #### C BCDIF ####[place] [id number] [place], [place] [phone] NURSING PROGon 10-19-2019 NURSING PROG HNO ID: [id number] Author: Bart (Rn) SEYMOUR Ac Service: Critical Care Author Type: Registered Nurse Type: Nursing Progress Note Filed: 10/19/2019 7:29 PM Note Text: Nursing Progress Note Patient Name: Pedro Pablo Sierra Patient Location: VD-[id number]/[facility]-0 249-01 __ Daily Note: 0700 Assumed care [...] stable condition, VSS, will continue to monitor 1924 Bedside report completed, in bed resting and in stable condition This note was completed by: BART AC RN [facility] NURSING PROG HNO ID: [id number] Author: Fran NessRn) SEYMOUR Lucero Service: ? Author Type: Registered Nurse Type: Nursing Progress Note Filed: 10/19/2019 6:50 AM Note Text: Nursing Progress Note Patient Name: Pedro Pablo Sierra Patient Location: KW-[id number]/[facility]-0 249-01 __ Daily Note: 1900: Patient handoff at bedside, assumed care of patient 2000: Assessment 0000: Reassessment 0100: Rounds at bedside with Dr. Randle, notified by this RN of increased abdominal firmness. Patient assessed with Dr. Randle, no new orders 0400: Reassessment 0700: Patient handoff at bedside, end of patient care This note was completed by: Fran Lucero RN [facility] NUTRITIONon 10-19-2019 NUTRITION HNO ID: [id number] Author: Muna Rivas Service: Nutrition Therapy Author Type: Registered Dietitian Type: Nutrition Filed: 10/19/2019 12:33 PM Note Text: NUTRITION THERAPY SCREEN NOTE SERVICE DATE: 10/19/2019 SERVICE TIME: 12:25 PM Care Plan: Continue current diet Supplements: Impact AR HPI: 69 yo male with h/o CAD c/b IL, HTN, COPD, DM, and seizure disorder s/p s/p left groin exploration, hematoma evac, debridement of soft tissues, washout, sartorius flap, wound vac placement Intake History: + Nursing Screen for unintentional weight loss and decreased oral intake. No significant weight loss noted. Unable to obtain nutritional history/preferences. Will refer to DTR for follow up. Current Diet: DIET REGULAR Anthropometrics: Height: 172.7 cm (5' 8") Weight: 76.7 kg (169 lb 1.5 oz) [...] and weekends please page the Group Pager [phone] [facility] PROGRESSon 10-19-2019 PROGRESS HNO ID: [id number] Author: Florence Roman (Pharmacist) Service: Pharmacy Author [...] please contact Florence Roman PharmD at mobile [phone]. Age: [age] year old Allergies: ALLERGIES No Known Allergies Last 3 Encounter Wt Readings: Date: Wt: 10/16/2019 76.7 kg (169 lb 1.5 oz) 09/12/2019 76.7 kg (169 lb) 09/02/2019 77.2 kg (170 lb 1.6 oz) Last 1 Encounter Ht Readings: Date: Ht: 10/16/2019 172.7 cm (5' 8") CrCl: Estimated Creatinine Clearance: 80.1 mL/min (based [...] 1112 28.0 (H) Florence Roman, Pharm D, [facility] PROGRESS HNO ID: [id number] Author: Lesly Salvador Service: Vascular Surgery Author [...] Prophylaxis/Anticoagul ants 10/17/19214 vte current anticoag therapy ([place]) 10/17/19214 pneumatic compression stockings ([place]) VTE Prophylaxis: VTE prophylaxis appropriate ALLERGIES [...] ? 87 24 95 % ? ? 10/18/192037 ? ? ? 84 15 97 % [...] oz) 10/18/19 1725 ? 172.7 cm (5' 8") 77.2 kg (170 lb 3.1 oz) 10/18/19 [...] on 10/10/19 for hematoma evacuation,?Left EIA to ENROLLMENT MANAGEMENT VICE PRESIDENT bypass with 7mm ringed PTFE, retrograde open [...] 19, 2019 TIME: 6:52 AM PAGER/CONTACT #: [phone] Agree with the above note. The patient [...] that location. The patient understands and agrees. [facility] ANES POSTPROC EVALon 020 ANES POSTPROC EVAL HNO ID: [id number] Author: Del Garner Service: ? Author Type: Anesthesiologist Type: Anesthesia Postprocedure Evaluation Filed: 10/18/2019 3:45 PM Note Text: POST ANESTHESIA EVALUATION NOTE : 1950 Procedure Summary Date: 10/18/19 Room / Location: [place] [address] / OR Anesthesia Start: 1245 Anesthesia Stop: [...] October 18, 2019 TIME: 3:45 PM CSN: [id number] [facility] ANES PRE-OPon 10-18-2019 ANES PRE-OP HNO ID: [id number] Author: Del Garner Service: ? Author Type: Anesthesiologist Type: Anesthesia Preprocedure Evaluation Filed: 10/18/2019 12:12 PM Note Text: ANESTHESIOLOGY DAY OF SURGERY NOTE : 1950 Procedure(s) (LRB): EXPLORATION INGUINAL (Left) Surgeon(s): Rob Salvador Estimated body mass index is 25.88 kg/m? as calculated from the following: Height as of 10/08/19: 172.7 cm (5' 8"). Weight as of this encounter: 77.2 kg (170 lb 3.1 oz). Most recent hematocrit and potassium results: Hematocrit,POC 29.1 10/18/2019 Potassium, POC 3.5 10/18/2019 Relevant Problems CARDIO (+) CAD (coronary artery disease) (+) Headache, hemicrania continua (+) Hypertension (+) PVD (peripheral vascular disease) ([facility]) (+) s/p left femoral endarterectomy/aortoil [...] movements. - COMPOUNDED PRESCRIPTION Aerosol supplies Dx:J44.1 NPI#[id number] - ipratropium-albuterol (DUONEB) 0.5 mg-3 mg(2.5 mg [...] October 18, 2019 TIME: 12:11 PM CSN: [id number] [facility] Anaerobe Cultureon 0 Anaerobe Culture Sp. Request/Comment: - Eswab Culture Result - Negative for anaerobes. Normal [facility] Comment on above: Performed By: #### A NACUL ####[facility] [place], [place] [phone] Basic Metabolic Panlon 10-17 Anion gap [Moles/Vol] 12 mmol/L Normal 9-18 [facility] Comment on above: Performed By: #### P T, BMP, CBCDIF ####[place] [phone] Calcium [Mass/Vol] 8.4 mg/dL Low 8.5-10.5 [facility] Comment on above: Performed By: #### P T, BMP, CBCDIF ####[place] [phone] Chloride [Moles/Vol] 103 mmol/L Normal 98-110 [facility] Comment on above: Performed By: #### P T, BMP, CBCDIF ####[place] [phone] CO2 [Moles/Vol] 25 mmol/L Normal 23-32 [facility] Comment on above: Performed By: #### P T, BMP, CBCDIF ####[place] [phone] Creatinine [Mass/Vol] 0.67 mg/dL Low 0.70-1.40 [facility] Comment on above: Performed By: #### P T, BMP, CBCDIF ####[place] [phone] eGFR- Amer. >60 Normal >60 [facility] Comment on above: Performed By: #### P T, BMP, CBCDIF ####[place] [phone] GFR/1.73 sq M predicted among non-blacks MDRD (S/P/Bld) [Vol rate/Area] mL/min/{1.73_m2} Normal >60 [facility] Comment on above: Performed By: #### P T, BMP, CBCDIF ####[place] [phone] Glucose [Mass/Vol] 87 mg/dL Normal 65-100 [facility] Comment on above: Performed By: #### P T, BMP, CBCDIF ####[place] [phone] Potassium [Moles/Vol] 3.5 mmol/L Normal 3.5-5.0 [facility] Comment on above: Performed By: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 plavix Dressing changes PRN to groin Dispo: D/c home with [facility] today Ayad Tompkins MD General Surgery, PGY-3 For questions Monday through Monday 6am to 6pm please page Red Team [phone] For questions during nights (6pm - 6am) and weekends, please contact the General Surgery Farmworker Rice pager, [phone] [facility] Protimeon 10-14-2019 PT Coag (PPP) [Time] 27.5 s High 9.7-13.0 [facility] Comment on above: Performed By: #### C KATHY JUAREZ, PT ####[facility] [place], [place] [phone] PT Coag (PPP) [Time] 2.6 s High 0.9-1.3 [facility] Comment on above: Result Comment: Teri min K Antagonist (VKA) Therapeutic Range: INR 2 to 3 (Target INR of 2.5) Note: For patients treated with VKA drugs, such as warfarin, the [place] [employer] 2012 Guideline recommends [...] Performed By: #### C KATHY JUAREZ, PT ####[facility] [place], [place] [phone] THERAPY NTon 10-14-2019 THERAPY NT HNO ID: [id number] Author: Shakir Alicea (Pt) Mode Service: Physical Therapy Author Type: Physical Therapist Type: Therapy (PT/OT/Speech/Resp) Filed: 10/14/2019 10:40 AM Note Text: Physical Therapy Treatment SERVICE DATE: 10/14/2019 SERVICE TIME: 1003 to 1026 ROOM: [place] [address] Recommended Discharge Disposition: Home PT Anticipated Discharge [...] ness on feet Interventions Provided: Gait Training (30099);Therapeutic Activity (27939) Therapeutic Activity (79940) Treatment Minutes: 10 1 unit Skilled Intervention(s): [...] in position prior to mobility Gait Training (62598) Treatment Minutes: 13 1 unit Skilled Intervention(s): [...] Consult : PVD s/p L LE redo ENROLLMENT MANAGEMENT VICE PRESIDENT endarterectomy, L profundoplasty, iliac stenting on 10/08/19 Relevant Past Medical History: S/p L femoral endarterectomy/aoroili ac stenting Patient Report: Pt agreeable to participate in therapy session. Pt having coughing spells intermittently during functional mobility, stating that he gets light headed when this occurs (vascular team was notified). Home Environment Patient Lives With: Self/Alone Assistance Available: realtime reporter Entry To Home: Stairs;Other: See Comment(stair lift) [...] DATE: October 14, 2019 TIME: 10:37 AM [facility] THERAPY NT HNO ID: [id number] Author: Caitlin (Giuseppe) William Service: Occupational Therapy Author Type: Occupational Therapist Type: Therapy (PT/OT/Speech/Resp) Filed: 10/14/2019 10:18 AM Note Text: OCCUPATIONAL THERAPY MISSED VISIT SERVICE DATE: 10/14/2019 SERVICE TIME: 920 to 920 ROOM: [place] [address] Attempted Treatment. Patient not seen due to Declined. Pt declines OT tx stating, "Not until after dinner." OT explains that it is 9 in the morning with pt verbalizing understanding and continuing to decline therapy at this time. Continue OT per POC as able. SIGNATURE: Caitlin Thomas OTR/L PATIENT NAME: Pedro Pablo Sierra DATE: October 14, 2019 TIME: 10:17 AM [facility] Basic Metabolic Panlon 10-12 Anion gap [Moles/Vol] 10 mmol/L Normal 9-18 [facility] Comment on above: Performed By: #### C KATHY JUAREZ, PT ####[facility] [place], [place] [phone] Calcium [Mass/Vol] 8.1 mg/dL Low 8.5-10.5 [facility] Comment on above: Performed By: #### C KATHY JUAREZ, PT ####[facility] [place], [place] [phone] Chloride [Moles/Vol] 102 mmol/L Normal 98-110 [facility] Comment on above: Performed By: #### C KATHY JUAREZ, PT ####[place] [phone] CO2 [Moles/Vol] 26 mmol/L Normal 23-32 [facility] Comment on above: Performed By: #### C KATHY JUAREZ, PT ####[place] [phone] Creatinine [Mass/Vol] 0.68 mg/dL Low 0.70-1.40 [facility] Comment on above: Performed By: #### C KATHY JUAREZ, PT ####[place] [phone] eGFR- Amer. >60 Normal >60 [facility] Comment on above: Performed By: #### C KATHY JUAREZ, PT ####[place] [phone] GFR/1.73 sq M predicted among non-blacks MDRD (S/P/Bld) [Vol rate/Area] mL/min/{1.73_m2} Normal >60 [facility] Comment on above: Performed By: #### KATHY HARRISON, PT ####[place] [phone] Glucose [Mass/Vol] 103 mg/dL High 65-100 [facility] Comment on above: Performed By: #### KATHY HARRISON, PT ####[place] [phone] Potassium [Moles/Vol] 3.5 mmol/L Normal 3.5-5.0 [facility] Comment on above: Performed By: #### KATHY HARRISON, PT ####[place] [phone] Sodium [Moles/Vol] 138 mmol/L Normal 135-146 [facility] Comment on above: Performed By: #### KATHY HARRISON, PT ####[address] [address] [place], [place] [phone] Urea nitrogen [Mass/Vol] 8 mg/dL Low 10-25 [facility] Comment on above: Performed By: #### C KATHY JUAREZ, PT ####[phone] [place], [place] [phone] CASE MANAGEMon 10-13-2019 CASE MANAGEM HNO ID: [id number] Author: Carly Hutchison) SEYMOUR Man Service: Case [...] Pt states understanding. Pt aware he will [facility] services. AVS faxed to Carmen ( Waiver CM) SIGNATURE: Carly Man RN,BSN PATIENT NAME: Pedro Pablo Sierra DATE: October 13, 2019 TIME: 1:54 PM PAGER/CONTACT #: [phone] Normal [facility] CBCon 10-13-2019 Erythrocyte distribution width (RBC) [Ratio] 15.9 % High 11.5-15.0 [facility] Comment on above: Performed By: #### C KATHY JUAREZ, PT ####[address] [phone] [place] [phone] Hematocrit (Bld) [Volume fraction] 26.2 % Low 39.0-51.0 [facility] Comment on above: Performed By: #### C KATHY JUAREZ, PT ####[facility] [place], [place] [phone] Hemoglobin (Bld) [Mass/Vol] 8.4 g/dL Low 13.0-17.0 [facility] Comment on above: Performed By: #### C KATHY JUAREZ, PT ####[facility] [place], [place] [phone] MCH (RBC) [Entitic mass] 29.6 pG Normal 26.0-34.0 [facility] Comment on above: Performed By: #### C LARRY BMP, PT ####[place] [phone] MCHC (RBC) [Mass/Vol] 32.1 g/dL Normal 30.5-36.0 [facility] Comment on above: Performed By: #### C LARRY BMP, PT ####[place] [phone] MCV (RBC) [Entitic vol] 92.3 fL Normal 80.0-100.0 [facility] Comment on above: Performed By: #### C KATHY JUAREZ, PT ####[place] [phone] Platelet mean volume (Bld) [Entitic vol] 10.0 fL Normal 9.0-12.7 [facility] Comment on above: Performed By: #### C LARRY BMP, PT ####[place] [phone] Platelets (Bld) [#/Vol] 187 10*3/uL Normal 150-400 [facility] Comment on above: Performed By: #### C LARRY BMP, PT ####[place] [phone] RBC (Bld) [#/Vol] 2.84 10*6/uL Low 4.20-6.00 [facility] Comment on above: Performed By: #### C LARRY BMP, PT ####[place] [phone] WBC (Bld) [#/Vol] 4.79 10*3/uL Normal 3.70-11.00 [facility] Comment on above: Performed By: #### C LARRY BMP, PT ####[place] [phone] NURSING PROGon 10-13-2019 NURSING PROG HNO ID: [id number] Author: Stefania France (Rn) SEYMOUR García Service: ? Author Type: Registered Nurse Type: Nursing Progress Note Filed: 10/13/2019 10:12 AM Note Text: Nursing Progress Note Patient Name: Pedro Pablo Sierra Patient Location: / __ Daily Note:Patient expressed a desire to ambulate and get up to chair. He states he wants to get back to his normal life". Patient states he started the process to [...] note was completed by: Stefania García RN [facility] NURSING PROG HNO ID: [id number] Author: Emily NessRn) SEYMOUR Linda Service: ? Author Type: Registered Nurse Type: Nursing Progress Note Filed: 10/13/2019 12:12 AM Note Text: Nursing Progress Note Patient Name: Pedro Pablo Sierra Patient Location: / __ Daily Note: 2151-- pt resting in bed AO3, 87% RA (patient usually 94% on 3LNC at home. Refuses to put NC back on, educated on benefits/risks. Still refuses.) expiratory wheeze heard all lobes with diminished bases, nonproductive dry cough. SR on telemetry, VSS. S1/s2 regular. Abdomen distended/firm/ and tender. Pt says it has been a few days, since before I came in" since he had a BM. Hypoactive bowel [...] reach. 0000-- page to on-call surgery team [id number]-- Pedro Pablo Sierra [id number]-- patients L groin cath site has frequent medium amount of serosanguinous drainage, dressing changed. small hematoma still present. just wanted to make aware. thanks, Emily [phone]-- call back from Noman Fish, general surgery resident, says continue monitoring incision for larger amount of bloody drainage and dehiscence. This note was completed by: Emily Linda RN [facility] PROGRESSon 10-13-2019 PROGRESS HNO ID: [id number] Author: Noman France (Binu Fish MD Service: General Surgery Author Type: Resident Type: Progress Notes Filed: 10/13/2019 7:13 AM Note Text: [facility] POSTOP PROGRESS NOTE Service Date: 10/13/2019Admit Date: 10/08/2019Service Time: 7:08 AM LOS: 5 day(s) Primary Service: Vascular Surgery Vascular Physician: Ryan May MD Interval Events/Issues: Drainage from incision site. Patient angry about discharge, wants turax-mwo-zqhug care at home. Otherwise no acute events. [...] -- 10/11/19 0945 activity - mobilize patient ([place]) 10/08/19 1645 pneumatic compression stockings ([place], [place]) VTE Prophylaxis: on AC ALLERGIES No [...] w/ rest pain and is s/p L ENROLLMENT MANAGEMENT VICE PRESIDENT EA w/ bovine patch, L RADHA and EIA thrombectomy, L CI and EI stenting 10/07 c/b thrombosis s/p : EIA to ENROLLMENT MANAGEMENT VICE PRESIDENT bypass graft w. Ringed PTFE 10/09. Plan: Continue lovenox to coumadin bridge Reg diet, HLIV PO pain meds S/p brittany-op abx No clark Cont. plavix Dressing changes PRN to groin Dispo: D/c home with [facility] today Noman Fish MD 7:09 AM 10/13/2019 See below: For questions Monday through Monday 6am to 6pm please page Red Team [phone] For questions during nights (6pm - 6am) and weekends, please contact the General Surgery Farmworker Rice pager, [phone] [facility] Protimeon 10-13-2019 PT Coag (PPP) [Time] 30.6 s High 9.7-13.0 [facility] Comment on above: Performed By: #### C KATHY JUAREZ, PT ####[place] [id number] [place], [place] [phone] PT Coag (PPP) [Time] 2.9 s High 0.9-1.3 [facility] Comment on above: Result Comment: Teri min K Antagonist (VKA) Therapeutic Range: INR 2 to 3 (Target INR of 2.5) Note: For patients treated with VKA drugs, such as warfarin, the [employer] 2012 Guideline recommends [...] Chest 2012, 141:7S-47S Gio RA, et al. [facility] 2017, 70: 252-289 Performed By: #### C KATHY JUAREZ, PT ####[facility] [place], [place] [phone] THERAPY NTon 10-13-2019 THERAPY NT HNO ID: [id number] Author: Shakir Alicea (Pt) Mode Service: Physical Therapy Author Type: Physical Therapist Type: Therapy (PT/OT/Speech/Resp) Filed: 10/13/2019 1:35 PM Note Text: Physical Therapy Treatment SERVICE DATE: 10/13/2019 SERVICE TIME: 1235 to 1300 ROOM: [place] [address] Recommended Discharge Disposition: Home PT Anticipated Discharge [...] ness on feet Interventions Provided: Gait Training (69806) Gait Training (90513) Treatment Minutes: 25 2 units Skilled Intervention(s): [...] Consult : PVD s/p L LE redo ENROLLMENT MANAGEMENT VICE PRESIDENT endarterectomy, L profundoplasty, iliac stenting on 10/08/19 Relevant Past Medical History: S/p L femoral endarterectomy/aoroili ac stenting Patient Report: Pt agreeable to participate in therapy session Home Environment Patient Lives With: Self/Alone Assistance Available: realtime reporter Entry To Home: Stairs;Other: See Comment(stair lift) [...] October 13, 2019 TIME: 1:34 PM Normal [facility] Basic Metabolic Panlon 10-11 Anion gap [Moles/Vol] 11 mmol/L Normal 9-18 [facility] Comment on above: Performed By: #### C BC, PT, BMP ####[place] [phone] Calcium [Mass/Vol] 8.1 mg/dL Low 8.5-10.5 [facility] Comment on above: Performed By: #### C BC, PT, BMP ####[place] [phone] Chloride [Moles/Vol] 98 mmol/L Normal 98-110 [facility] Comment on above: Performed By: #### C BC, PT, BMP ####[place] [phone] CO2 [Moles/Vol] 26 mmol/L Normal 23-32 [facility] Comment on above: Performed By: #### C BC, PT, BMP ####[place] [phone] Creatinine [Mass/Vol] 0.64 mg/dL Low 0.70-1.40 [facility] Comment on above: Performed By: #### C BC, PT, BMP ####[place] [phone] eGFR- Amer. >60 Normal >60 [facility] Comment on above: Performed By: #### C BC, PT, BMP ####[place] [phone] GFR/1.73 sq M predicted among non-blacks MDRD (S/P/Bld) [Vol rate/Area] mL/min/{1.73_m2} Normal >60 [facility] Comment on above: Performed By: #### C BC, PT, BMP ####[facility] [place], [place] [phone] Glucose [Mass/Vol] 151 mg/dL High 65-100 [facility] Comment on above: Performed By: #### C BC, PT, BMP ####[facility] [place], [place] [phone] Potassium [Moles/Vol] 3.6 mmol/L Normal 3.5-5.0 [facility] Comment on above: Performed By: #### C BC, PT, BMP ####[place] [phone] Sodium [Moles/Vol] 135 mmol/L Normal 135-146 [facility] Comment on above: Performed By: #### C BC, PT, BMP ####[facility] [place], [place] [phone] Urea nitrogen [Mass/Vol] 8 mg/dL Low 10-25 [facility] Comment on above: Performed By: #### C BC, PT, BMP ####[facility] [place] [address] [phone] CASE MANAGEMon 10-12-2019 CASE MANAGEM HNO ID: [id number] Author: Carly Man RN Service: Case Management Author Type: Registered [...] 12, 2019 TIME: 12:38 PM PAGER/CONTACT #: [phone] [facility] CASE MANAGEM HNO ID: [id number] Author: Carly Hutchison) Donovan RN Service: Case [...] safer at home. Pt Very upset, states " my daughter is POA, and if she finds out you sent me home , You better watch it !) Explained to pt this CM is giving pt his options for d/c. Pt given IM letter, explained appeal process. SIGNATURE: Carly Man RN,BSN PATIENT NAME: Pedro Pablo Sierra DATE: October 12, 2019 TIME: 10:14 AM PAGER/CONTACT #: [phone] Normal [facility] CBCon 10-12-2019 Erythrocyte distribution width (RBC) [Ratio] 16.0 % High 11.5-15.0 [facility] Comment on above: Performed By: #### C LARRY PT, BMP ####[place] [phone] Hematocrit (Bld) [Volume fraction] 29.3 % Low 39.0-51.0 [facility] Comment on above: Performed By: #### C LARRY, PT, BMP ####[place] [phone] Hemoglobin (Bld) [Mass/Vol] 9.7 g/dL Low 13.0-17.0 [facility] Comment on above: Performed By: #### C LARRY PT, BMP ####[place] [phone] MCH (RBC) [Entitic mass] 30.3 pG Normal 26.0-34.0 [facility] Comment on above: Performed By: #### C BC PT, BMP ####[place] [phone] MCHC (RBC) [Mass/Vol] 33.1 g/dL Normal 30.5-36.0 [facility] Comment on above: Performed By: #### C BC, PT, BMP ####[address] [phone] MCV (RBC) [Entitic vol] 91.6 fL Normal 80.0-100.0 [facility] Comment on above: Performed By: #### C BC, PT, BMP ####[address] [phone] Platelet mean volume (Bld) [Entitic vol] 10.2 fL Normal 9.0-12.7 [facility] Comment on above: Performed By: #### C BC, PT, BMP ####[address] [phone] Platelets (Bld) [#/Vol] 173 10*3/uL Normal 150-400 [facility] Comment on above: Performed By: #### C BC, PT, BMP ####[address] [phone] RBC (Bld) [#/Vol] 3.20 10*6/uL Low 4.20-6.00 [facility] Comment on above: Performed By: #### C BC, PT, BMP ####[address] [phone] WBC (Bld) [#/Vol] 5.98 10*3/uL Normal 3.70-11.00 [facility] Comment on above: Performed By: #### C BC, PT, BMP ####[address] [phone] NURSING PROGon 10-12-2019 NURSING PROG HNO ID: [id number] Author: Daphney NessRn) SEYMOUR Baron Service: Nursing Author Type: Registered Nurse Type: Nursing Progress Note Filed: 10/12/2019 4:25 PM Note Text: Nursing Progress Note Patient Name: Pedro Pablo Sierra Patient Location: -[id number] __ Daily Note: 0900: Pt up to chair with 2 assist and walker. Pt states left leg is painful, but able to bear weight. Pt does not want to be discharged at this time, PT/OT recommending skilled, pt refusing and wanting home care around the clock. Pt requesting robitussin for cough, given at 0841 per order. 1130: Pt assisted to bathroom with nursing surgical services director and walker. Pt was able to ambulate from bathroom to bed using walker with standby assist. 1610: Incision to left groin oozing serosang drainage. Gown saturated and needed to be changed. Abd and paper tape applied to cover and collect drainage. Pt c/o pain to left groin, 01/26. Medicated with 10mg po oxycodone. This note was completed by: Daphney Baron RN [facility] PROGRESSon 10-12-2019 PROGRESS HNO ID: [id number] Author: Elly Brown Service: Vascular Surgery Author [...] -- 10/11/19 0945 activity - mobilize patient ([place]) 10/08/19 1645 pneumatic compression stockings ([place]) VTE Prophylaxis: on AC ALLERGIES No Known [...] w/ rest pain and is s/p L ENROLLMENT MANAGEMENT VICE PRESIDENT EA w/ bovine patch, L RADHA and EIA thrombectomy, L CI and EI stenting 10/07 c/b thrombosis s/p : EIA to ENROLLMENT MANAGEMENT VICE PRESIDENT bypass graft w. Ringed PTFE 10/09. Plan: [...] CRISPIN stenting on 10/23, UC, CAD previous IL, DM, HTN, HLD, COPD Overall Course: 63 [...] and weekends, please contact the General Surgery Farmworker Rice pager, [phone] Normal [facility] Protimeon 10-12-2019 PT Coag (PPP) [Time] 15.6 s High 9.7-13.0 [facility] Comment on above: Performed By: #### C BC, PT, BMP ####[facility] [place], [place] [phone] PT Coag (PPP) [Time] 1.5 s High 0.9-1.3 [facility] Comment on above: Result Comment: Teri min K Antagonist (VKA) Therapeutic Range: INR 2 to 3 (Target INR of 2.5) Note: For patients treated with VKA drugs, such as warfarin, the [employer] 2012 Guideline recommends [...] Chest 2012, 141:7S-47S Gio RA, et al. [facility] 2017, 70: 252-289 Performed By: #### C BC, PT, BMP ####[facility] [place], [place] [phone] ANES POSTPROC EVALon 020 ANES POSTPROC EVAL HNO ID: [id number] Author: Cassie Zavala Service: ? Author Type: Anesthesiologist Type: Anesthesia Postprocedure Evaluation Filed: 10/11/2019 7:41 AM Note Text: POST ANESTHESIA EVALUATION NOTE : 1950 Procedure Summary Date: 10/10/19 Room / Location: ORA / OR Anesthesia Start: 853 Anesthesia Stop: 1429 [...] October 11, 2019 TIME: 7:41 AM CSN: [id number] Normal [facility] Basic Metabolic Panlon 10-10 Anion gap [Moles/Vol] 9 mmol/L Normal 9-18 [facility] Comment on above: Performed By: #### C BC, BMP, MG1, PHOS ####[place] [phone] Calcium [Mass/Vol] 7.7 mg/dL Low 8.5-10.5 [facility] Comment on above: Performed By: #### C BC, BMP, MG1, PHOS ####[place] [phone] Chloride [Moles/Vol] 101 mmol/L Normal 98-110 [facility] Comment on above: Performed By: #### C BC, BMP, MG1, PHOS ####[place] [phone] CO2 [Moles/Vol] 26 mmol/L Normal 23-32 [facility] Comment on above: Performed By: #### C BC, BMP, MG1, PHOS ####[place] [phone] Creatinine [Mass/Vol] 0.63 mg/dL Low 0.70-1.40 [facility] Comment on above: Performed By: #### C BC, BMP, MG1, PHOS ####[place] [phone] eGFR- Amer. >60 Normal >60 [facility] Comment on above: Performed By: #### C BC, BMP, MG1, PHOS ####[place] [phone] GFR/1.73 sq M predicted among non-blacks MDRD (S/P/Bld) [Vol rate/Area] mL/min/{1.73_m2} Normal >60 [facility] Comment on above: Performed By: #### C BC, BMP, MG1, PHOS ####[place] [phone] Glucose [Mass/Vol] 107 mg/dL High 65-100 [facility] Comment on above: Performed By: #### C BC, BMP, MG1, PHOS ####[place] [phone] [place] [phone] Potassium [Moles/Vol] 3.9 mmol/L Normal 3.5-5.0 [facility] Comment on above: Performed By: #### C BC, BMP, MG1, PHOS ####[place] [phone] Sodium [Moles/Vol] 136 mmol/L Normal 135-146 [facility] Comment on above: Performed By: #### C BC, BMP, MG1, PHOS ####[place] [phone] [place] [phone] Urea nitrogen [Mass/Vol] 8 mg/dL Low 10-25 [facility] Comment on above: Performed By: #### C BC, BMP, MG1, PHOS ####[place] [phone] CASE MGT INIT ASSon 2019 CASE MGT INIT [facility] HNO ID: [id number] Author: Bri (Rn) SEYMOUR Swann Service: Case Management Author Type: Registered Nurse Type: Care Mgt Initial Assessment Filed: 10/11/2019 2:43 PM Note Text: CARE MANAGEMENT PROGRESS NOTE SERVICE DATE: 10/11/2019 SERVICE TIME: 2:38 PM LOS: 3 days [place] of Choice Given: Yes Level of Care Discussed: Home Care Financial Disclosure Provided: Yes Financial Disclosure Comments: discussed Needs Prior to Discharge: To Be Determined;Home Care Order CM discussed with pt discharge planning. pt has his home set up for his needs with elevator and refusing rehab at this time due to Covid 19 risks. Pt was active with [facility] for nurse visit and prefers to continue. CM made referral via ascripts, pt will need F2F for PT/OT/SN at d/c. CM flagged weekend CM staff for potential d/c this weekend and will need AVS faxed at d/c to [phone]. CM to follow as needed. SIGNATURE: Bri Swann RN,BSN PATIENT NAME: Pedro Pablo Sierra DATE: October 11, 2019 TIME: 2:38 PM PAGER/CONTACT #: [phone] Normal [facility] CBCon 10-11-2019 Erythrocyte distribution width (RBC) [Ratio] 15.8 % High 11.5-15.0 [facility] Comment on above: Performed By: #### C BC, BMP, MG1, PHOS ####[place] [phone] Hematocrit (Bld) [Volume fraction] 27.2 % Low 39.0-51.0 [facility] Comment on above: Performed By: #### C BC, BMP, MG1, PHOS ####[place] [phone] Hemoglobin (Bld) [Mass/Vol] 8.9 g/dL Low 13.0-17.0 [facility] Comment on above: Performed By: #### C BC, BMP, MG1, PHOS ####[place] [phone] MCH (RBC) [Entitic mass] 29.4 pG Normal 26.0-34.0 [facility] Comment on above: Performed By: #### C BC, BMP, MG1, PHOS ####[place] [phone] MCHC (RBC) [Mass/Vol] 32.7 g/dL Normal 30.5-36.0 [facility] Comment on above: Performed By: #### C BC, BMP, MG1, PHOS ####[place] [phone] MCV (RBC) [Entitic vol] 89.8 fL Normal 80.0-100.0 [facility] Comment on above: Performed By: #### C BC, BMP, MG1, PHOS ####[place] [phone] Platelet mean volume (Bld) [Entitic vol] 9.9 fL Normal 9.0-12.7 [facility] Comment on above: Performed By: #### C BC, BMP, MG1, PHOS ####[place] [phone] Platelets (Bld) [#/Vol] 140 10*3/uL Low 150-400 [facility] Comment on above: Performed By: #### C BC, BMP, MG1, PHOS ####[place] [phone] RBC (Bld) [#/Vol] 3.03 10*6/uL Low 4.20-6.00 [facility] Comment on above: Performed By: #### C BC, BMP, MG1, PHOS ####[place] [phone] WBC (Bld) [#/Vol] 5.78 10*3/uL Normal 3.70-11.00 [facility] Comment on above: Performed By: #### C BC, BMP, MG1, PHOS ####[place] [phone] Magnesiumon 10-11-2019 Magnesium [Mass/Vol] 2.0 mg/dL Normal 1.7-2.6 [facility] Comment on above: Performed By: #### C BC, BMP, MG1, PHOS ####[address] NURSING PROGon 10-11-2019 NURSING PROG HNO ID: [id number] Author: Briana (Rn) SEYMOUR Hardy Service: ? Author Type: Registered Nurse Type: Nursing Progress Note Filed: 10/11/2019 2:37 PM Note Text: Nursing Progress Note Patient Name: Pedro Pablo Sierra Patient Location: [id number]/[facility]-0 245-01 __ Daily Note: 0700. Bedside report received from security shift supervisor RN. Patient is resting comfortably [...] care of patient. 1430. Patient transferred to [facility] via bed on portable O2. All belongings and chart sent with patient. This note was completed by: Briana Hardy RN [facility] PROGRESSon 10-11-2019 PROGRESS HNO ID: [id number] Author: Noman Fish MD Service: Vascular Surgery [...] 1043 -- 10/08/19 1645 pneumatic compression stockings ([place]) VTE Prophylaxis: held for bleeding ALLERGIES No [...] - Left: biphasic DATA: Laboratory: Recent Labs 10/11/1932910/10/19199910/10/19 1459 WBC 5.78 7.33 7.13 HB 8.9* 7.1* 8.3* HCT 27.2* 21.7* 24.9* PLT 140* 167 173 Recent Labs 10/11/1932910/10/19 14510/10/19 0559 NA 136 138 136 K 3.9 [...] CRISPIN stenting on 10/23, UC, CAD previous IL, DM, HTN, HLD, COPD Overall Course: 63 year old male with acute onset of BLE pain. Taken to OR for initiation of thrombolysis thru LCIA/TORITO Procedure/Surgeries: 1. Aortogram with bilateral ileofemoral runoff via left brachial artery 2. Left leg angiogram, 3rd order 3. Placement of lysis catheter from distal aorta to left SFA, 20cm treatment zone [facility] [place] 07/02/2014 Thrombectomy Airway Difficulty: NA OR Course: [...] TIME: 7:24 AM PAGER/CONTACT #: See Below ETX#[id number] For questions Monday through Monday 6am to 6pm please page Red Team [phone] For questions during nights (6pm - 6am) and weekends, please contact the General Surgery Farmworker Rice pager, [phone] [facility] PROGRESS HNO ID: [id number] Author: Rashawn Huntley Service: Critical Care Author [...] (Oral) Resp 23 Ht 172.7 cm (5' 8") Wt 81 kg (178 lb 9.2 oz) [...] CURRENT MEDICATIONS: Medications reviewed. Please refer to ClaimIt for list of inpatient medications. Current Facility-Administered [...] INTRAVENOUS q 2 H PRN Elly (Res) [place] 25 mcg at 10/11/19 0648 - hyoscyamine [...] tab(s) (PLAVIX) 75 mg ORAL DAILY Roman (Cold Rolling Machine Setter) Heinly 75 mg at 10/10/19816 - polyethylene glycol 3350 17 g packet (MIRALAX, GLYCOLAX) 17 g ORAL DAILY PRN Elly (Res) [place]-Jennifer - docusate sodium 100 mg cap(s) (COLACE) 100 mg ORAL BID Elly (Res) [place]ennifer 100 mg at 10/10/192202 - budesonide 0.25 mg/2 mL 0.25 mg (PULMICORT) 0.25 mg INHALATION BID Elly (Res) [place] 0.25 mg at 10/10/192046 And - ipratropium-albuterol 3 mL nebulizer solution (DUONEB) 3 mL INHALATION QID Elly (Res) [place]-Jennifer 3 mL at 10/10/192046 - NaCl 0.9% iv infusion 100 mL/hr INTRAVENOUS CONTINUOUS Elly (Res) [place] 100 mL/hr at 10/10/191999 100 mL/hr at [...] 30 mL ORAL/FEEDING TUBE DAILY PRN Misael Vanegas) MD Steffany - acetaminophen 1,000 mg tab(s) [...] H Misael Jeter MD 12.5 mg at 10/10/193 PERTINENT CULTURES: Cultures were reviewed. Pertinent cultures from this hospitalization are listed below. Plese refer to [facility] for a full listing of cultures obtained during this hospitalization. ? N/A DIAGNOSTIC TESTS: The following diagnostic tests/findings were reviewed: ? Most recent labs and imaging results. MOST RECENT CXR FINDINGS: Bibasilar atelectasis. OPERATIVE PROCEDURE(S): Date of surgery: 10/08/19 Procedure: Left common ENROLLMENT MANAGEMENT VICE PRESIDENT endarterectomy with bovine path Left profundoplasty Left iliac stenting X4 (I-Cast X2, Jessica X2) Multiple angiograms with angioplasty Surgeon: Dr. May Date of surgery: 10/10/19 Procedure: Left EIA to ENROLLMENT MANAGEMENT VICE PRESIDENT bypass with 7mm ringed PTFE end to end proximally to the previously placed bovine patch end to side distally. Completion angiogram Retrograde open RADHA angioplasty with 8 x 80 mustang balloon. Open thrombectomy L iliac artery by leg incision. Surgeon: Dr. May Assessment/Plan 69 year old male with CAD (EF 60% on 09/12/19), IL in 2005, HTN, HLD, COPD, PJ(on 2L O2 nocturnal), DM, GERD, diverticulosis, anxiety, depression, lupus anticoagulant disorder on Coumadin, chronic low back pain, aortoiliac and left ileofemoral PAD s/p multiple interventions including left femoral endarterectomy/aortoil iac stenting in 10/2013 who underwent a Redo left ENROLLMENT MANAGEMENT VICE PRESIDENT endarterectomy, left profundoplasty, left iliac stenting with Dr. May on 10/08/19. She is admitted to SICU post-operatively for neurovascular checks and close hemodynamic monitoring. Developed L ENROLLMENT MANAGEMENT VICE PRESIDENT occlusion POD2 and taken back to OR on 10/10/19 for left groin hematoma evacuation, left EIA to ENROLLMENT MANAGEMENT VICE PRESIDENT PTFE bypass, left liac thrombectomy. Transferred to [...] SCDs -Dispo: Transfer to [facility] Medication and Non-Pharmacologic VTE Prophylaxis/Anticoagul ants Anticoagulant AND Antiplatelet Medications (From admission, onward) Start Dose Route Frequency Ordered Stop 10/10/19 0900 clopidogrel 75 mg tab(s) (PLAVIX) 75 mg ORAL DAILY 10/09/19 1043 -- 10/08/19 1700 activity - mobilize patient ([place], [place]) 10/08/19 1645 pneumatic compression stockings ([place], [place]) VTE Prophylaxis: Contraindicated elevated risk of bleeding To be seen and discussed on rounds with SICU staff: Dr. Huntley ICU Checklist --------- --- VTE Prophylaxis: SIGNATURE: Misael Jeter MD PATIENT NAME: Pedro Pablo Sierra DATE: October 11, 2019 TIME: 6:40 AM PAGER/CONTACT #: [phone] [facility] STAFF PHYSICIAN NOTE OF PERSONAL INVOLVEMENT [...] HTN GERD ? Procedure/Surgeon 10/08/19 S/P L ENROLLMENT MANAGEMENT VICE PRESIDENT endarterectomy with bovine path, profundoplasty and iliac [...] DO 11:08 AM October 11, 2019 Normal [facility] Phosphoruson 10-11-2019 Phosphate [Mass/Vol] 1.9 mg/dL Low 2.5-4.5 [facility] Comment on above: Performed By: #### C BC, BMP, MG1, PHOS ####[address] [phone] Protimeon 10-11-2019 PT Coag (PPP) [Time] 10.9 s Normal 9.7-13.0 [facility] Comment on above: Performed By: #### P T ####[address] [phone] PT Coag (PPP) [Time] 1.0 s Normal 0.9-1.3 [facility] Comment on above: Result Comment: Teri min K Antagonist (VKA) Therapeutic Range: INR 2 to 3 (Target INR of 2.5) Note: For patients treated with VKA drugs, such as warfarin, the [place] [employer] 2012 Guideline recommends [...] Chest 2012, 141:7S-47S Gio KENNY, et al. [facility] 2017, 70: 252-289 Performed By: #### P T ####[facility] [place], [place] [phone] THERAPY NTon 10-11-2019 THERAPY NT HNO ID: [id number] Author: Gini (Pt) Eugenia Melvin Service: Physical Therapy Author Type: Physical Therapist Type: Therapy (PT/OT/Speech/Resp) Filed: 10/11/2019 10:43 AM Note Text: Physical Therapy Treatment SERVICE DATE: 10/11/2019 SERVICE TIME: 0935 to 1020 ROOM: [place] [address] Recommended Discharge Disposition: Home PT Anticipated Discharge [...] Diagnosis: Reduced mobility-other Interventions Provided: Therapeutic Activity (53063);Therapeutic Exercise (73002);Gait Training (78668) Therapeutic Exercise (47662) Treatment Minutes: 15 1 unit Skilled Intervention(s): Instruction in therapeutic exercise supine, very gentle with Daisha LE. Edu on rationale of exercises. Therapeutic Activity (57208) Treatment Minutes: 20 1 unit Skilled Intervention(s): Instructed patient in supine to sit pushing with upper extremities to sit up Instructed patient in supine to and from sit pushing with upper extremities to sit up Instruction in sit to stand technique with proper hand placement and body positioning at edge of bed/chair Gait Training (85520) Treatment Minutes: 10 1 unit Skilled Intervention(s): Instruction in sequencing, gait pattern and Instruction in correction of gait deviations Total Timed Code Treatment Minutes: 45 Total Treatment Time (minutes): 45 SUBJECTIVE: Current Hospital Course: Chart reviewed and no significant medical updates relevant to therapy were noted Reason for Physical Therapy Consult : PVD s/p L LE redo ENROLLMENT MANAGEMENT VICE PRESIDENT endarterectomy, L profundoplasty, iliac stenting on 10/08/19 Relevant Past Medical History: S/p L femoral endarterectomy/aoroili ac stenting Patient Report: "My Left leg is incredibly sore right now, moving is going to have to be slow." (And it is.) Home Environment Patient Lives With: Self/Alone Assistance Available: realtime reporter Entry To Home: Stairs;Other: See Comment(stair lift) [...] October 11, 2019 TIME: 10:40 AM Normal [facility] THERAPY NT HNO ID: [id number] Author: Caitlin Thomas Service: Occupational Therapy Author Type: Occupational Therapist Type: Therapy (PT/OT/Speech/Resp) Filed: 10/11/2019 6:48 AM Note Text: OCCUPATIONAL THERAPY MISSED VISIT SERVICE DATE: 10/11/2019 SERVICE TIME: 646 to 646 ROOM: [place] [address] Attempted Treatment. Patient not seen due to Incomplete Orders. Pt is currently on bedrest. Please update activity orders when medically appropriate for participation in Occupational Therapy treatment and out of bed mobility. Thank you. SIGNATURE: Caitlin Thomas OTR/L PATIENT NAME: Pedro Pablo Sierra DATE: October 11, 2019 TIME: 6:47 AM Normal [facility] ABG Complete Eval FOR SEFERINO Kauffman 10-10-2019 Base Excess 1 mmol/L Normal [facility] Comment on above: Result Comment: -3 t o 3 Performed By: #### A [facility] ####[facility] [place] [phone] Calcium [Mass/Vol] 1.29 mmol/L Normal 1.15-1.35 [facility] Comment on above: Performed By: #### A [facility] ####[place] [phone] Carboxyhemoglobin,Art 1.0 % Normal <2.0 [facility] Comment on above: Performed By: #### A [facility] ####[place] [phone] Chloride, Whole Bld FOR WEST USE ONLY 105 mmol/L Normal 98-107 [facility] Comment on above: Performed By: #### A [facility] ####[place] [phone] CO2 [Moles/Vol] 27 mmol/L Normal 22.0-28.0 [facility] Comment on above: Performed By: #### A [facility] ####[place] [phone] Glucose [Mass/Vol] 132 mg/dL High 65-100 [facility] Comment on above: Performed By: #### A [facility] ####[place] [phone] HCO3 (Bld) [Moles/Vol] 26 mmol/L Normal 22-26 [facility] Comment on above: Performed By: #### A [facility] ####[place] [phone] Hematocrit (Bld) [Volume fraction] 26.3 % Low 42.0-52.0 [facility] Comment on above: Performed By: #### A [facility] ####[place] [phone] Hemoglobin (Bld) [Mass/Vol] 8.5 g/dL Low 14-18 [facility] Comment on above: Performed By: #### A [facility] ####[place] [phone] Lactate [Moles/Vol] 1.5 mmol/L Normal 0.4-2.0 [facility] Comment on above: Performed By: #### A [facility] ####[place] [phone] Methemoglobin 1.4 % Normal 0.4-1.5 [facility] Comment on above: Performed By: #### A [facility] ####[place] [phone] O2 Administered 21.0 Normal [facility] Comment on above: Performed By: #### A [facility] ####[place] [phone] Oxygen (Bld) [Partial pressure] 136 mm Hg High 80-100 [facility] Comment on above: Performed By: #### A [facility] ####[place] [phone] Oxygen (Bld) [Partial pressure] 99 % High 90-98 [facility] Comment on above: Performed By: #### A [facility] ####[place] [phone] Oxyhemoglobin, Art. 96 % Normal 94-100 [facility] Comment on above: Performed By: #### A [facility] ####[place] [phone] pCO2 46 mm Hg Normal 35-48 [facility] Comment on above: Performed By: #### A [facility] ####[place] [phone] pH (Bld) 7.37 [pH] Normal 7.35-7.45 [facility] Comment on above: Performed By: #### A [facility] ####[place] [phone] PO2FI FOR WEST USE ONLY 648 mmHG High 400-500 [facility] Comment on above: Performed By: #### A [facility] ####[place] [phone] Potassium [Moles/Vol] 3.9 mmol/L Normal 3.5-5.0 [facility] Comment on above: Performed By: #### A [facility] ####[place] [phone] Sodium [Moles/Vol] 137 mmol/L Normal 135-145 [facility] Comment on above: Performed By: #### A [facility] ####[place] [phone] Base Excess 2 mmol/L Normal [facility] Comment on above: Result Comment: -3 t o 3 Performed By: #### A [facility] ####[place] [phone] Calcium [Mass/Vol] 1.09 mmol/L Low 1.15-1.35 [facility] Comment on above: Performed By: #### A [facility] ####[place] [phone] Carboxyhemoglobin,Art 1.3 % Normal <2.0 [facility] Comment on above: Performed By: #### A [facility] ####[place] [phone] Chloride, Whole Bld FOR WEST USE ONLY 106 mmol/L Normal 98-107 [facility] Comment on above: Performed By: #### A [facility] ####[place] [phone] CO2 [Moles/Vol] 28 mmol/L Normal 22.0-28.0 [facility] Comment on above: Performed By: #### A [facility] ####[place] [phone] Glucose [Mass/Vol] 129 mg/dL High 65-100 [facility] Comment on above: Performed By: #### A [facility] ####[place] [phone] HCO3 (Bld) [Moles/Vol] 27 mmol/L High 22-26 [facility] Comment on above: Performed By: #### A [facility] ####[place] [phone] Hematocrit (Bld) [Volume fraction] 24.6 % Low 42.0-52.0 [facility] Comment on above: Performed By: #### A [facility] ####[place] [phone] Hemoglobin (Bld) [Mass/Vol] 7.9 g/dL Low 14-18 [facility] Comment on above: Performed By: #### A [facility] ####[place] [phone] Lactate [Moles/Vol] 1.1 mmol/L Normal 0.4-2.0 [facility] Comment on above: Performed By: #### A [facility] ####[place] [phone] Methemoglobin 1.2 % Normal 0.4-1.5 [facility] Comment on above: Performed By: #### A [facility] ####[place] [phone] O2 Administered 21.0 Normal [facility] Comment on above: Performed By: #### A [facility] ####[place] [phone] Oxygen (Bld) [Partial pressure] 164 mm Hg High 80-100 [facility] Comment on above: Performed By: #### A [facility] ####[place] [phone] Oxygen (Bld) [Partial pressure] 99 % High 90-98 [facility] Comment on above: Performed By: #### A [facility] ####[place] [phone] Oxyhemoglobin, Art. 97 % Normal 94-100 [facility] Comment on above: Performed By: #### A [facility] ####[place] [phone] [place] [phone] pCO2 44 mm Hg Normal 35-48 [facility] Comment on above: Performed By: #### A [facility] ####[facility] [place], [place] [phone] pH (Bld) 7.40 [pH] Normal 7.35-7.45 [facility] Comment on above: Performed By: #### A [facility] ####[place] [phone] [place] [phone] PO2FI FOR WEST USE ONLY 781 mmHG High 400-500 [facility] Comment on above: Performed By: #### A [facility] ####[place] [phone] [place] [phone] Potassium [Moles/Vol] 3.6 mmol/L Normal 3.5-5.0 [facility] Comment on above: Performed By: #### A [facility] ####[place] [phone] Sodium [Moles/Vol] 137 mmol/L Normal 135-145 [facility] Comment on above: Performed By: #### A [facility] ####[place] [phone] [place], [place] [phone] ALLIED HEALTHon 10-10-2019 ALLIED HEALTH HNO ID: [id number] Author: William Renee (Rt) Service: Radiology Author Type: Landscaping Manager Type: Allied Health Filed: 10/10/2019 6:31 AM [...] RT Víctor October 10, 2019 6:31 AM [facility] ANES PRE-OPon 10-10-2019 ANES PRE-OP HNO ID: [id number] Author: Joey Sequeira Service: ? Author Type: Anesthesiologist Type: Anesthesia Preprocedure Evaluation Filed: 10/10/2019 8:24 AM Note Text: ANESTHESIOLOGY DAY OF SURGERY NOTE : 1950 Procedure(s) (LRB): ENDARTERECTOMY FEMORAL (Left) Surgeon(s): Ryan May MD Estimated body mass index is 26.35 kg/m? as calculated from the following: Height as of this encounter: 172.7 cm (5' 8"). Weight as of this encounter: 78.6 kg (173 lb 4.5 oz). Most recent hematocrit and potassium results: Hematocrit,POC 23.1 10/10/2019 Potassium, POC 3.8 10/10/2019 Relevant Problems CARDIO (+) CAD (coronary artery disease) (+) Headache, hemicrania continua (+) Hypertension (+) PVD (peripheral vascular disease) ([facility]) (+) s/p left femoral endarterectomy/aortoil iac stenting 10/08/2019 (now with L ENROLLMENT MANAGEMENT VICE PRESIDENT occlusion) PULMONARY (+) COPD (chronic obstructive pulmonary disease) ([facility]) (+) PJ (obstructive sleep apnea) ANESTHESIA (+) PJ (obstructive sleep apnea) NEURO-PSYCH (+) Headache GI (+) GERD (gastroesophageal reflux disease) Other (+) Anemia due to acute blood loss (Hgb 7.4 this AM; will order 2 units PRBCs) (+) Lupus anticoagulant disorder ([facility]) I - PHYSICAL EVALUATION AIRWAY [...] (iso-osmotic) 100 mL (ANCEF) 2 g INTRAVENOUS Farm[employer] Rice to OR - NaCl 0.9% iv infusion [...] - warfarin (COUMADIN) 10 mg tablet 7.5mg Thurs and 10mg all other days (Patient taking [...] movements. - COMPOUNDED PRESCRIPTION Aerosol supplies Dx:J44.1 NPI#[id number] - ipratropium-albuterol (DUONEB) 0.5 mg-3 mg(2.5 mg [...] October 10, 2019 TIME: 8:21 AM CSN: [id number] Normal [facility] APTTon 10-10-2019 aPTT Coag (Bld) [Time] 25.4 s Normal 23.0-32.4 [facility] Comment on above: Result Comment: Unfr actionated [...] laboratory APTT reagent in use throughout the [facility]. Performed By: #### C BCDIF, PTT, FIBCT, PT ####[facility] [place], [place] [phone] aPTT Coag (Bld) [Time] 126.3 s High 23.0-32.4 [facility] Comment on above: Result Comment: Unfr actionated [...] laboratory APTT reagent in use throughout the [facility]. Called to and read back by: Landry Quintana RN [place] [facility] 10/10/19 Royce Mccormick Performed By: #### C BCDIF, BMP, MG1, PHOS, PTT, PT ####[facility] [place], [place] [phone] aPTT Coag (Bld) [Time] 44.1 s High 23.0-32.4 [facility] Comment on above: Result Comment: Unfr actionated [...] laboratory APTT reagent in use throughout the [facility]. Performed By: #### P TT ####[place] [phone] Basic Metabolic Panlon 10-09 Anion gap [Moles/Vol] 11 mmol/L Normal 9-18 [facility] Comment on above: Performed By: #### C BCDIF, BMP, MG1, PHOS, PTT, PT ####[place] [phone] Calcium [Mass/Vol] 8.0 mg/dL Low 8.5-10.5 [facility] Comment on above: Performed By: #### C BCDIF, BMP, MG1, PHOS, PTT, PT ####[place] [phone] Chloride [Moles/Vol] 103 mmol/L Normal 98-110 [facility] Comment on above: Performed By: #### C BCDIF, BMP, MG1, PHOS, PTT, PT ####[place] [phone] CO2 [Moles/Vol] 24 mmol/L Normal 23-32 [facility] Comment on above: Performed By: #### C BCDIF, BMP, MG1, PHOS, PTT, PT ####[place] [phone] Creatinine [Mass/Vol] 0.68 mg/dL Low 0.70-1.40 [facility] Comment on above: Performed By: #### C BCDIF, BMP, MG1, PHOS, PTT, PT ####[place] [phone] eGFR- Amer. >60 Normal >60 [facility] Comment on above: Performed By: #### C BCDIF, BMP, MG1, PHOS, PTT, PT ####[place] [phone] GFR/1.73 sq M predicted among non-blacks MDRD (S/P/Bld) [Vol rate/Area] mL/min/{1.73_m2} Normal >60 [facility] Comment on above: Performed By: #### C BCDIF, BMP, MG1, PHOS, PTT, PT ####[place] [phone] Glucose [Mass/Vol] 127 mg/dL High 65-100 [facility] Comment on above: Performed By: #### C BCDIF, BMP, MG1, PHOS, PTT, PT ####[place] [phone] Potassium [Moles/Vol] 4.3 mmol/L Normal 3.5-5.0 [facility] Comment on above: Performed By: #### C BCDIF, BMP, MG1, PHOS, PTT, PT ####[place] [phone] Sodium [Moles/Vol] 138 mmol/L Normal 135-146 [facility] Comment on above: Performed By: #### C BCDIF, BMP, MG1, PHOS, PTT, PT ####[place] [phone] Urea nitrogen [Mass/Vol] 9 mg/dL Low 10-25 [facility] Comment on above: Performed By: #### C BCDIF, BMP, MG1, PHOS, PTT, PT ####[place] [phone] Anion gap [Moles/Vol] 8 mmol/L Low 9-18 [facility] Comment on above: Performed By: #### C BC, BMP, MG1, PHOS ####[place] [phone] Calcium [Mass/Vol] 7.9 mg/dL Low 8.5-10.5 [facility] Comment on above: Performed By: #### C BC, BMP, MG1, PHOS ####[place] [phone] Chloride [Moles/Vol] 101 mmol/L Normal 98-110 [facility] Comment on above: Performed By: #### C BC, BMP, MG1, PHOS ####[place] [phone] CO2 [Moles/Vol] 27 mmol/L Normal 23-32 [facility] Comment on above: Performed By: #### C BC, BMP, MG1, PHOS ####[place] [phone] Creatinine [Mass/Vol] 0.69 mg/dL Low 0.70-1.40 [facility] Comment on above: Performed By: #### C BC, BMP, MG1, PHOS ####[place] [phone] eGFR- Amer. >60 Normal >60 [facility] Comment on above: Performed By: #### C BC, BMP, MG1, PHOS ####[place] [phone] GFR/1.73 sq M predicted among non-blacks MDRD (S/P/Bld) [Vol rate/Area] mL/min/{1.73_m2} Normal >60 [facility] Comment on above: Performed By: #### C BC, BMP, MG1, PHOS ####[place] [phone] Glucose [Mass/Vol] 107 mg/dL High 65-100 [facility] Comment on above: Performed By: #### C BC, BMP, MG1, PHOS ####[place] [phone] Potassium [Moles/Vol] 3.8 mmol/L Normal 3.5-5.0 [facility] Comment on above: Performed By: #### C BC, BMP, MG1, PHOS ####[place] [phone] Sodium [Moles/Vol] 136 mmol/L Normal 135-146 [facility] Comment on above: Performed By: #### C BC, BMP, MG1, PHOS ####[phone] Urea nitrogen [Mass/Vol] 11 mg/dL Normal 10-25 [facility] Comment on above: Performed By: #### C BC, BMP, MG1, PHOS ####[phone] CASE MANAGEMon 10-10-2019 CASE MANAGEM HNO ID: [id number] Author: Bri Hutchison) SEYMOUR Swann Service: Case [...] 10, 2019 TIME: 4:23 PM PAGER/CONTACT #: [phone] Normal [facility] CBCon 10-10-2019 Erythrocyte distribution width (RBC) [Ratio] 16.0 % High 11.5-15.0 [facility] Comment on above: Performed By: #### C BC, BMP, MG1, PHOS ####[phone] Hematocrit (Bld) [Volume fraction] 23.2 % Low 39.0-51.0 [facility] Comment on above: Performed By: #### C BC, BMP, MG1, PHOS ####[place] [phone] Hemoglobin (Bld) [Mass/Vol] 7.5 g/dL Low 13.0-17.0 [facility] Comment on above: Performed By: #### C BC, BMP, MG1, PHOS ####[place] [phone] MCH (RBC) [Entitic mass] 30.1 pG Normal 26.0-34.0 [facility] Comment on above: Performed By: #### C BC, BMP, MG1, PHOS ####[place] [phone] MCHC (RBC) [Mass/Vol] 32.3 g/dL Normal 30.5-36.0 [facility] Comment on above: Performed By: #### C BC, BMP, MG1, PHOS ####[place] [phone] MCV (RBC) [Entitic vol] 93.2 fL Normal 80.0-100.0 [facility] Comment on above: Performed By: #### C BC, BMP, MG1, PHOS ####[place] [phone] Platelet mean volume (Bld) [Entitic vol] 9.8 fL Normal 9.0-12.7 [facility] Comment on above: Performed By: #### C BC, BMP, MG1, PHOS ####[place] [phone] Platelets (Bld) [#/Vol] 180 10*3/uL Normal 150-400 [facility] Comment on above: Performed By: #### C BC, BMP, MG1, PHOS ####[place] [phone] RBC (Bld) [#/Vol] 2.49 10*6/uL Low 4.20-6.00 [facility] Comment on above: Performed By: #### C BC, BMP, MG1, PHOS ####[place] [phone] WBC (Bld) [#/Vol] 6.64 10*3/uL Normal 3.70-11.00 [facility] Comment on above: Performed By: #### C BC, BMP, MG1, PHOS ####[place] [phone] CBC and Differentialon 10-09 Abs Baso 0.03 k/uL Normal <0.11 [facility] Comment on above: Performed By: #### C BCDIF, PTT, FIBCT, PT ####[place] [phone] Abs [place] 0.69 k/uL Normal <0.87 [facility] Comment on above: Performed By: #### C BCDIF, PTT, FIBCT, PT ####[place] [phone] Abs Neut 5.56 k/uL Normal 1.45-7.50 [facility] Comment on above: Performed By: #### C BCDIF, PTT, FIBCT, PT ####[place] [phone] Basophils/100 WBC (Bld) 0.4 % Normal [facility] Comment on above: Performed By: #### C BCDIF, PTT, FIBCT, PT ####[place] [phone] Eosinophils (Bld) [#/Vol] 10*3/uL Normal <0.46 [facility] Comment on above: Performed By: #### C BCDIF, PTT, FIBCT, PT ####[place] [phone] Eosinophils/100 WBC (Bld) 0.3 % Normal [facility] Comment on above: Performed By: #### C BCDIF, PTT, FIBCT, PT ####[place] [phone] Erythrocyte distribution width (RBC) [Ratio] 16.9 % High 11.5-15.0 [facility] Comment on above: Performed By: #### C BCDIF, PTT, FIBCT, PT ####[place] [phone] Hematocrit (Bld) [Volume fraction] 21.7 % Low 39.0-51.0 [facility] Comment on above: Performed By: #### C BCDIF, PTT, FIBCT, PT ####[place] [phone] Hemoglobin (Bld) [Mass/Vol] 7.1 g/dL Low 13.0-17.0 [facility] Comment on above: Performed By: #### C BCDIF, PTT, FIBCT, PT ####[place] [phone] Lymphocytes (Bld) [#/Vol] 1.03 10*3/uL Normal 1.00-4.00 [facility] Comment on above: Performed By: #### C BCDIF, PTT, FIBCT, PT ####[place] [phone] Lymphocytes/100 WBC (Bld) 14.1 % Normal [facility] Comment on above: Performed By: #### C BCDIF, PTT, FIBCT, PT ####[place] [phone] MCH (RBC) [Entitic mass] 29.5 pG Normal 26.0-34.0 [facility] Comment on above: Performed By: #### C BCDIF, PTT, FIBCT, PT ####[place] [phone] MCHC (RBC) [Mass/Vol] 32.7 g/dL Normal 30.5-36.0 [facility] Comment on above: Performed By: #### C BCDIF, PTT, FIBCT, PT ####[place] [phone] MCV (RBC) [Entitic vol] 90.0 fL Normal 80.0-100.0 [facility] Comment on above: Performed By: #### C BCDIF, PTT, FIBCT, PT ####[place] [phone] Monocytes/100 WBC (Bld) 9.4 % Normal [facility] Comment on above: Performed By: #### C BCDIF, PTT, FIBCT, PT ####[place] [phone] Neutrophils/100 WBC (Bld) 75.8 % Normal [facility] Comment on above: Performed By: #### C BCDIF, PTT, FIBCT, PT ####[place] [phone] Platelet mean volume (Bld) [Entitic vol] 10.0 fL Normal 9.0-12.7 [facility] Comment on above: Performed By: #### C BCDIF, PTT, FIBCT, PT ####[place] [phone] Platelets (Bld) [#/Vol] 167 10*3/uL Normal 150-400 [facility] Comment on above: Performed By: #### C BCDIF, PTT, FIBCT, PT ####[place] [phone] RBC (Bld) [#/Vol] 2.41 10*6/uL Low 4.20-6.00 [facility] Comment on above: Performed By: #### C BCDIF, PTT, FIBCT, PT ####[place] [phone] WBC (Bld) [#/Vol] 7.33 10*3/uL Normal 3.70-11.00 [facility] Comment on above: Performed By: #### C BCDIF, PTT, FIBCT, PT ####[place] [phone] Abs Baso 0.04 k/uL Normal <0.11 [facility] Comment on above: Performed By: #### C BCDIF, BMP, MG1, PHOS, PTT, PT ####[place] [address] Abs [place] 0.56 k/uL Normal <0.87 [facility] Comment on above: Performed By: #### C BCDIF, BMP, MG1, PHOS, PTT, PT ####[place] [address] Abs Neut 5.40 k/uL Normal 1.45-7.50 [facility] Comment on above: Performed By: #### C BCDIF, BMP, MG1, PHOS, PTT, PT ####[place] [address] Basophils/100 WBC (Bld) 0.6 % Normal [facility] Comment on above: Performed By: #### C BCDIF, BMP, MG1, PHOS, PTT, PT ####[place] [address] DTYPE Auto Diff Normal [facility] Comment on above: Performed By: #### C BCDIF, PTT, FIBCT, PT ####[place] [address] Performed By: #### C BCDIF, BMP, MG1, PHOS, PTT, PT ####[place] [address] Eosinophils (Bld) [#/Vol] 0.06 10*3/uL Normal <0.46 [facility] Comment on above: Performed By: #### C BCDIF, BMP, MG1, PHOS, PTT, PT ####[place] [address] Eosinophils/100 WBC (Bld) 0.8 % Normal [facility] Comment on above: Performed By: #### C BCDIF, BMP, MG1, PHOS, PTT, PT ####[place] [phone] Erythrocyte distribution width (RBC) [Ratio] 16.6 % High 11.5-15.0 [facility] Comment on above: Performed By: #### C BCDIF, BMP, MG1, PHOS, PTT, PT ####[place] [phone] Hematocrit (Bld) [Volume fraction] 24.9 % Low 39.0-51.0 [facility] Comment on above: Performed By: #### C BCDIF, BMP, MG1, PHOS, PTT, PT ####[place] [phone] Hemoglobin (Bld) [Mass/Vol] 8.3 g/dL Low 13.0-17.0 [facility] Comment on above: Performed By: #### C BCDIF, BMP, MG1, PHOS, PTT, PT ####[place] [phone] Lymphocytes (Bld) [#/Vol] 1.07 10*3/uL Normal 1.00-4.00 [facility] Comment on above: Performed By: #### C BCDIF, BMP, MG1, PHOS, PTT, PT ####[place] [phone] Lymphocytes/100 WBC (Bld) 15.0 % Normal [facility] Comment on above: Performed By: #### C BCDIF, BMP, MG1, PHOS, PTT, PT ####[place] [phone] MCH (RBC) [Entitic mass] 30.3 pG Normal 26.0-34.0 [facility] Comment on above: Performed By: #### C BCDIF, BMP, MG1, PHOS, PTT, PT ####[place] [phone] MCHC (RBC) [Mass/Vol] 33.3 g/dL Normal 30.5-36.0 [facility] Comment on above: Performed By: #### C BCDIF, BMP, MG1, PHOS, PTT, PT ####[place] [phone] MCV (RBC) [Entitic vol] 90.9 fL Normal 80.0-100.0 [facility] Comment on above: Performed By: #### C BCDIF, BMP, MG1, PHOS, PTT, PT ####[place] [phone] Monocytes/100 WBC (Bld) 7.9 % Normal [facility] Comment on above: Performed By: #### C BCDIF, BMP, MG1, PHOS, PTT, PT ####[place] [phone] Neutrophils/100 WBC (Bld) 75.7 % Normal [facility] Comment on above: Performed By: #### C BCDIF, BMP, MG1, PHOS, PTT, PT ####[place] [phone] Platelet mean volume (Bld) [Entitic vol] 9.8 fL Normal 9.0-12.7 [facility] Comment on above: Performed By: #### C BCDIF, BMP, MG1, PHOS, PTT, PT ####[place] [phone] Platelets (Bld) [#/Vol] 173 10*3/uL Normal 150-400 [facility] Comment on above: Performed By: #### C BCDIF, BMP, MG1, PHOS, PTT, PT ####[place] [phone] RBC (Bld) [#/Vol] 2.74 10*6/uL Low 4.20-6.00 [facility] Comment on above: Performed By: #### C BCDIF, BMP, MG1, PHOS, PTT, PT ####[place] [address] [place], [place] [phone] WBC (Bld) [#/Vol] 7.13 10*3/uL Normal 3.70-11.00 [facility] Comment on above: Performed By: #### C BCDIF, BMP, MG1, PHOS, PTT, PT ####[facility] [place], [place] [phone] Fibrinogenon 10-10-2019 Fibrinogen 410 mg/dL High 200-400 [facility] Comment on above: Performed By: #### C BCDIF, PTT, FIBCT, PT ####[place] [phone] [place] [phone] HISTORY PHYSICALon 0 HISTORY PHYSICAL HNO ID: [id number] Author: Ryan May MD Service: Vascular Surgery [...] organ system. Possible thrombosis of the left ENROLLMENT MANAGEMENT VICE PRESIDENT graft. Possible hematoma. Plan to reexplore, evacuate hematoma, possible ileo-femoral bypass vs fem-fem bypass. Jermaine May MD Normal [facility] Hematocriton 10-10-2019 Hematocrit (Bld) [Volume fraction] 23.1 % Low 39.0-51.0 [facility] Comment on above: Performed By: #### H CT, HGB ####[facility] [place], [place] [phone] Hemoglobinon 10-10-2019 Hemoglobin (Bld) [Mass/Vol] 7.4 g/dL Low 13.0-17.0 [facility] Comment on above: Performed By: #### H CT, HGB ####[facility] [place] [phone] Magnesiumon 10-10-2019 Magnesium [Mass/Vol] 1.8 mg/dL Normal 1.7-2.6 [facility] Comment on above: Performed By: #### C BCDIF, BMP, MG1, PHOS, PTT, PT ####[address] [phone] Magnesium [Mass/Vol] 2.0 mg/dL Normal 1.7-2.6 [facility] Comment on above: Performed By: #### C BC, BMP, MG1, PHOS ####[address] [phone] NURSING PROGon 10-10-2019 NURSING PROG HNO ID: [id number] Author: Yeimi NessRn) SEYMOUR Wong Service: ? Author Type: Registered Nurse Type: Nursing Progress Note Filed: 10/11/2019 7:38 AM Note Text: Nursing Progress Note Patient Name: Pedro Pablo Sierra Patient Location: [id number]/[facility]-0 [facility]- __ Daily Note: 1900 Received bedside report from Josse AHUJA. 1999 Assessment complete. Please see all flowsheets. 2100 2 units of blood ordered per Dr. Johnson. 2199 Started 1 unit of PRBC per order. 2229 Dr. Johnson and discharge planner Daphney rounding on pt. SBAR given. New orders received. 2214 Spoke mghd-ov-gahh with Dr. Johnson. Okay to go by cuff pressure. 5 Started 1 unit of PRBC per order. 0000 Reassessment complete. Please see all flowsheets. 0130 Dr. Johnson at bedside. SBAR given. Per Dr. Johnson, draw AM labs at 0330. 0400 Reassessment complete. Please see all flowsheets. 0715 Bedside report given to Briana AHUJA. Normal [facility] NURSING PROG HNO ID: [id number] Author: Fran NessRn) SEYMOUR Quintana Service: Critical Care Author Type: Registered Nurse Type: Nursing Progress Note Filed: 10/10/2019 7:55 PM Note Text: Nursing Progress Note Patient Name: Pedro Pablo Sierra Patient Location: [id number]/-[facility]-0 [id number] __ Daily Note: 0800: Full assessment complete. 0810: Talking with Misael, who would like amlodipine held this AM, okay to give metoprolol, and okayed by vascular surgery resident to give plavix. 0830: OR team at bedside. SBAR report. Plan to give cefazolin and PRBCs in OR. [phone]: On the phone with Joseph (pt's ex-) who is concerned because she was not updated on when pt went to surgery and is not getting updates like before" via text. Joseph is also stating that she signed papers at [facility] recently transfering Health Care POA into her name. Last AD is from 2013 with Michelle (daughter) as POA. 1042: Page to case management [place] [phone] in [place] Mr. Sierra [phone]: Ania (pt's ex-) states that she submitted papers recently while at [facility] that she is healthcare POA. Last AD I see is 2013 that has Michelle Richmond (pt's daughter) as POA. -Josse AHUJA [phone]" 1600: pT disoriented to self and time emerging from anesthesia. 1620: Pt calling inspector outside steam distribution light stating he is bleeding. Upon assessment, blood seeping gown and chucks pad under pt. Pressure applied to L groin sight. Page to Dr. Jeter (surgical nurse). 1621: Dr. Jeter at bedside, assuming full control of spontaneous Left groin bleed. 1625: Bleeding controled, page to vascular team. 1630: Vascular team at bedside to assess pt. Pulses assessed, stable. Dressing reinforced with pressure tape per vascular team. Plan to repeat labs at 8pm. Will wait to start heparin after PM labs. Dr. Jeter aware of elivated ptt. 1899: Bedside report given to oncsangita RN. This note was completed by: Fran Quintana RN [facility] NURSING PROG HNO ID: [id number] Author: Chrystal NessRn) SEYMOUR Jacob Service: Critical Care Author Type: Registered Nurse Type: Nursing Progress Note Filed: 10/10/2019 6:32 AM Note Text: Nursing Progress Note Patient Name: Pedro Pablo Sierra Patient Location: [id number]/[facility]-0 __ Daily Note: 1899: Bedside handoff received from SEYMOUR Patel. Patient resting in bed, Heparin gtt verified. Pulses dual checked 1999: Full assessment completed. See doc flowsheets. 0000: Reassessment completed. Pulses still present via dopplar. 0400: Reassessment completed. See doc flowsheets. 0545: Patient pulled out IV. Reduced access. Dr. Moody aware. IV fluids stopped. This note was completed by: Chrystal Jacob RN [facility] OPERATIVE NOon 10-10-2019 OPERATIVE NO HNO ID: [id number] Author: Ryan May MD Service: Vascular Surgery Author Type: Physician Type: Operative Report Filed: 10/10/2019 1:51 PM Note Text: OPERATIVE/PROCEDURE REPORT LOG ID: [id number] Surgery/Procedure Date: 10/10/2019 Incision/Procedure Start Time:9:52 AM Incision Close/Procedure End Time: 13:49 Surgeon(s)/Procedurali st(s) and Set Up Worker(s): Surgeon(s) and Role: * Ryan May MD - Primary * Elly (Azalea) Stephanie - Resident - Assisting No Additional Staff Anesthesia: General Procedure(s): Left EIA to ENROLLMENT MANAGEMENT VICE PRESIDENT bypass with 7mm ringed PTFE end to [...] to side to the patch. The proximal ENROLLMENT MANAGEMENT VICE PRESIDENT was clamped with four orange clips. Flow [...] DATE: 10/10/2019 TIME: 1:40 PM PAGER/CONTACT #: [facility] PROGRESSon 10-10-2019 PROGRESS HNO ID: [id number] Author: Elly (Binu Brown Service: Vascular Surgery [...] (iso-osmotic) 100 mL (ANCEF) 2 g INTRAVENOUS Farmworker Rice to OR - NaCl 0.9% iv infusion [...] 1604 -- 10/08/19 1645 pneumatic compression stockings (fl,oh) VTE Prophylaxis: on hep gtt ALLERGIES No [...] 123/51 ? ? 70 15 95 % 04/22/20 1401 ? ? ? 71 25 92 [...] hematoma evacuation, possible thrombectomy, possible fem/fem. 2U inspector outside steam distribution to OR Ok to cont. AC Ancef inspector outside steam distribution to OR HOSPITALIZATION(S) Indication for admission/procedure: BLE pain Important/Relevant PMH/PSH: s/p left femoral endarterectomy with patch, US guided access RCFA, L profundaplasty, RUFUS recanalization AND stenting, CRISPIN stenting on 10/23, UC, CAD previous IL, DM, HTN, HLD, COPD Overall Course: 63 year old male with acute onset of BLE pain. Taken to OR for initiation of thrombolysis thru LCIA/TORITO Procedure/Surgeries: 1. Aortogram with bilateral ileofemoral runoff via left brachial artery 2. Left leg angiogram, 3rd order 3. Placement of lysis catheter from distal aorta to left SFA, 20cm treatment zone [facility] 07/02/2014 Thrombectomy Airway Difficulty: NA OR Course: [...] 10, 2019 TIME: 7:50 AM PAGER/CONTACT #: [phone] [facility] PROGRESS HNO ID: [id number] Author: Rashawn Huntley Service: Critical Care Author [...] (Oral) Resp 24 Ht 172.7 cm (5' 8") Wt 78.6 kg (173 lb 4.5 oz) [...] CURRENT MEDICATIONS: Medications reviewed. Please refer to [facility] for list of inpatient medications. [...] QID Juliana Jesus) Akshat 3 mL at 10/09/191901 - heparin iv infusion (LOW DOSE ACS/NOMOGRAM) 25,000 units in NaCl 0.45% 250 mL PREMIX 0-3,000 Units/hr INTRAVENOUS CONTINUOUS Misael Jeter MD 11 mL/hr at 10/10/19 0012 1,100 Units/hr at 10/10/19 001 And - heparin RATE CHANGE bolus 1,000-4,000 Units for subtherapeutic aptt results 1,000-4,000 Units INTRAVENOUS PRN Misael Jeter MD 2,400 Units at 10/10/19 001 - ceFAZolin iv piggyback 2 g in D5W (iso-osmotic) 100 mL (ANCEF) 2 g INTRAVENOUS Farmworker Rice to OR Juliana Oden (Pa) - NaCl [...] 30 mL ORAL/FEEDING TUBE DAILY PRN Rashawn Medrick - acetaminophen 1,000 mg tab(s) (TYLENOL) 1,000 mg ORAL q 6 H Rashawn Medrick 1,000 mg at 10/10/19 0536 - ipratropium-albuterol 3 mL nebulizer solution (DUONEB) 3 mL INHALATION q 4 H PRN Rashawn Medrick - hyoscyamine sublingual 0.25 mg tab(s) (LEVSIN SL) 0.25 mg SUBLINGUAL AC and HS Rashawn Medrick 0.25 mg at 10/10/19 0536 - sertraline 100 mg tab(s) (ZOLOFT) 100 mg ORAL DAILY Rashawn Medrick 100 mg at 10/09/19754 - mirtazapine 15 mg (REMERON) 15 mg ORAL AT BEDTIME Rashawn Medrick 15 mg at 10/09/192123 - gabapentin 300 mg cap(s) (NEURONTIN) 300 mg ORAL q 12 H Rashawn Medrick 300 mg at 10/09/192123 - pantoprazole DR 40 mg tab(s) (PROTONIX) 40 mg ORAL DAILY (6 AM) Rashawn Medrick 40 mg at 10/10/19 05 - dextrose 40 % 15 g 15 g ORAL PRN Rashawn Medrick Or - glucagon 1 mg injection (GLUCAGEN) 1 mg INTRAMUSCULAR PRN Rashawn Petersonrick Or - dextrose 50% in water 25 mL syringe 12.5 g INTRAVENOUS PRN Rashawn Medrick - metoprolol tartrate (short acting) 12.5 mg tab(s) (LOPRESSOR) 12.5 mg ORAL q 12 H Rashawn Medrick 12.5 mg at 10/09/192123 PERTINENT CULTURES: Cultures were reviewed. Pertinent cultures from this hospitalization are listed below. Plese refer to [employer] for a full listing of cultures obtained during this hospitalization. ? N/A DIAGNOSTIC TESTS: The following diagnostic tests/findings were reviewed: ? Most recent labs and imaging results. MOST RECENT CXR FINDINGS: Increased vascular markings, likely fluid overload. OPERATIVE PROCEDURE(S): Date of surgery: 10/08/19 Procedure: Left common ENROLLMENT MANAGEMENT VICE PRESIDENT endarterectomy with bovine path Left profundoplasty Left iliac stenting X4 (I-Cast X2, Jessica X2) Multiple angiograms with angioplasty Surgeon: Dr. May Assessment/Plan 69 year old male with CAD (EF 60% on 09/12/19), [place] in 2005, HTN, HLD, COPD, PJ(on 2L O2 nocturnal), DM, GERD, diverticulosis, anxiety, depression, lupus anticoagulant disorder on Coumadin, chronic low back pain, aortoiliac and left ileofemoral PAD s/p multiple interventions including left femoral endarterectomy/aortoil iac stenting in 10/2013 who underwent a Redo left ENROLLMENT MANAGEMENT VICE PRESIDENT endarterectomy, left profundoplasty, left iliac stenting with Dr. May on 10/08/19. She is admitted to SICU post-operatively for neurovascular checks and close hemodynamic monitoring. Developed L ENROLLMENT MANAGEMENT VICE PRESIDENT occlusion POD2 and going back to OR [...] -- 10/08/19 1700 activity - mobilize patient ([place], [place]) 10/08/19 1645 pneumatic compression stockings ([place], [place]) VTE Prophylaxis: VTE prophylaxis appropriate To be seen and discussed on rounds with SICU staff: Dr. Huntley ICU Checklist --------- --- VTE Prophylaxis: SIGNATURE: Misael Jeter MD PATIENT NAME: Pedro Pablo Sierra DATE: October 10, 2019 TIME: 6:40 AM PAGER/CONTACT #: [phone] [facility] STAFF PHYSICIAN NOTE OF PERSONAL INVOLVEMENT [...] HTN GERD ? Procedure/Surgeon 10/08/19 S/P L ENROLLMENT MANAGEMENT VICE PRESIDENT endarterectomy with bovine path, profundoplasty and iliac [...] DO 7:56 AM October 10, 2019 Normal [facility] PTT,Anticoag Therapyon 10-09 aPTT Coag (Bld) [Time] 109.7 s High 23.0-32.4 [facility] Comment on above: Result Comment: Unfr actionated [...] laboratory APTT reagent in use throughout the [facility]. Called to and read back by: Landry Quintana RN [facility] 10/10/19 Noemí HOLLIS Performed By: #### P TTAC ####[address] [phone] Phosphoruson 10-10-2019 Phosphate [Mass/Vol] 3.0 mg/dL Normal 2.5-4.5 [facility] Comment on above: Performed By: #### C BCDIF, BMP, MG1, PHOS, PTT, PT ####[address] [phone] Phosphate [Mass/Vol] 2.1 mg/dL Low 2.5-4.5 [facility] Comment on above: Performed By: #### C BC, BMP, MG1, PHOS ####[address] [phone] Protimeon 10-10-2019 PT Coag (PPP) [Time] 10.5 s Normal 9.7-13.0 [facility] Comment on above: Performed By: #### C BCDIF, PTT, FIBCT, PT ####[address] [phone] PT Coag (PPP) [Time] 1.0 s Normal 0.9-1.3 [facility] Comment on above: Result Comment: Teri min K Antagonist (VKA) Therapeutic Range: INR 2 to 3 (Target INR of 2.5) Note: For patients treated with VKA drugs, such as warfarin, the [place] [employer] 2012 Guideline recommends [...] Chest 2012, 141:7S-47S Gio RA, et al. [facility] 2017, 70: 252-289 Performed By: #### C BCDIF, PTT, FIBCT, PT ####[place] [phone] Performed By: #### C BCDIF, BMP, MG1, PHOS, PTT, PT ####[place] [phone] PT Coag (PPP) [Time] 10.9 s Normal 9.7-13.0 [facility] Comment on above: Performed By: #### C BCDIF, BMP, MG1, PHOS, PTT, PT ####[place] [phone] SURGICAL PATHOLOGYon 020 SURGICAL PATHOLOGY Specimen originated from [facility] Specimen #: [id number] Submitting Physician: RYAN MAY FINAL DIAGNOSIS Left [...] GROSS DESCRIPTION A. Received in formalin labeled "left femoral stent" is a metal wire stent with red-brown hemorrhagic material measuring 2.7 x 1.0 x 1.0 cm. No vessel is seen. Seismic Interpreter sections are submitted in formalin in one cassette. SHOBHA/sierra 10/14/2019 Gross examination performed at [facility], [address] [place] [address] Date of Report: 10/15/2019 Date of Procedure: 10/10/2019 Date of Receipt: 10/11/2019 Submitted by: RYAN MAY Location: [facility] Diagnostic interpretation performed at [facility], [address] [place] [address]. [place] Number: [id number] [facility] THERAPY NTon 10-10-2019 THERAPY NT HNO ID: [id number] Author: Shakir NessPtPauline Coello Service: Physical Therapy Author Type: Physical Therapist Type: Therapy (PT/OT/Speech/Resp) Filed: 10/10/2019 1:18 PM Note Text: .PHYSICAL THERAPY MISSED VISIT SERVICE DATE: 10/10/2019 SERVICE TIME: 1317 to 1317 ROOM: OR [place] ( OPERATING ROOM) Attempted Treatment. Patient not seen due to Surgery. SIGNATURE: Shakir Coello PT PATIENT NAME: Pedro Pablo Sierra DATE: October 10, 2019 TIME: 1:18 PM [facility] THERAPY NT HNO ID: [id number] Author: Caitlin Thomas Service: Occupational Therapy Author Type: Occupational Therapist Type: Therapy (PT/OT/Speech/Resp) Filed: 10/10/2019 7:37 AM Note Text: OCCUPATIONAL THERAPY MISSED VISIT SERVICE DATE: 10/10/2019 SERVICE TIME: 735 to 735 ROOM: [id number] Attempted Treatment. Patient not seen due to Surgery. Pt going back to OR. OT tx on hold today. Will continue to monitor. SIGNATURE: Caitlin Thomas OTR/L PATIENT NAME: Pedro Pablo Sierra DATE: October 10, 2019 TIME: 7:36 AM [facility] XR CHEST 1V FRONTAL PORTon 0 10-10-2019 [...] airspace opacities, which may relate to atelectasis. Licensed Staff Mft: SHANELL Transcribe Date/Time: Oct 10 2019 6:59A Dictated by : DULCE BARRON MD This examination was interpreted and the report reviewed and electronically signed by: DULCE BARRON MD on Oct 10 2019 7:00AM EST [id number] [facility] ALLIED HEALTHon 10-09-2019 ALLIED HEALTH HNO ID: [id number] Author: Markell Alonzo (Chaplain) Service: Spiritual Care Author Type: Assembler Fluorescent Lights Type: Allied Health Filed: 10/09/2019 5:11 PM [...] patient's RN who could page the on-call steam and gas turbine assembler. ? To contact the Spiritual Care Department: Please call [phone]?or Page the On-Call Assembler Fluorescent Lights at pager [phone].??? Thank you for the opportunity to be of service. SIGNATURE: Chaplain Terry PATIENT NAME: Pedro Pablo Sierra DATE: October 09, 2019 TIME: 5:09 PM PAGER/CONTACT #: [phone] Normal [facility] APTTon 10-09-2019 aPTT Coag (Bld) [Time] 20.8 s Low 23.0-32.4 [facility] Comment on above: Result Comment: Unfr actionated [...] laboratory APTT reagent in use throughout the [facility]. Performed By: #### C BC, BMP, MG1, PHOS, PTT, PT ####[facility] [place], [place] [phone] Basic Metabolic Panlon 10-08 Anion gap [Moles/Vol] 9 mmol/L Normal 9-18 [facility] Comment on above: Performed By: #### C BC, BMP, MG1, PHOS, PTT, PT ####[facility] [place], [place] [phone] Calcium [Mass/Vol] 8.1 mg/dL Low 8.5-10.5 [facility] Comment on above: Performed By: #### C BC, BMP, MG1, PHOS, PTT, PT ####[place] [phone] Chloride [Moles/Vol] 101 mmol/L Normal 98-110 [facility] Comment on above: Performed By: #### C BC, BMP, MG1, PHOS, PTT, PT ####[place] [phone] CO2 [Moles/Vol] 26 mmol/L Normal 23-32 [facility] Comment on above: Performed By: #### C BC, BMP, MG1, PHOS, PTT, PT ####[place] [phone] Creatinine [Mass/Vol] 0.81 mg/dL Normal 0.70-1.40 [facility] Comment on above: Performed By: #### C BC, BMP, MG1, PHOS, PTT, PT ####[place] [phone] eGFR- Amer. >60 Normal >60 [facility] Comment on above: Performed By: #### C BC, BMP, MG1, PHOS, PTT, PT ####[place] [phone] GFR/1.73 sq M predicted among non-blacks MDRD (S/P/Bld) [Vol rate/Area] mL/min/{1.73_m2} Normal >60 [facility] Comment on above: Performed By: #### C BC, BMP, MG1, PHOS, PTT, PT ####[place] [phone] Glucose [Mass/Vol] 129 mg/dL High 65-100 [facility] Comment on above: Performed By: #### C BC, BMP, MG1, PHOS, PTT, PT ####[place] [phone] Potassium [Moles/Vol] 4.5 mmol/L Normal 3.5-5.0 [facility] Comment on above: Performed By: #### C BC, BMP, MG1, PHOS, PTT, PT ####[place] [address] [place], [place] [phone] Sodium [Moles/Vol] 136 mmol/L Normal 135-146 [facility] Comment on above: Performed By: #### C BC, BMP, MG1, PHOS, PTT, PT ####[address] [phone] Urea nitrogen [Mass/Vol] 15 mg/dL Normal 10-25 [facility] Comment on above: Performed By: #### C BC, BMP, MG1, PHOS, PTT, PT ####[place] [phone] [place], [place] [phone] CASE MANAGEMon 10-09-2019 CASE MANAGEM HNO ID: [id number] Author: Carly NessRn) Donovan RN Service: Case Management Author Type: Registered Nurse Type: Care Mgt Progress Note Filed: 10/09/2019 1:48 PM Note Text: CARE MANAGEMENT PROGRESS NOTE SERVICE DATE: 10/09/2019 SERVICE TIME: 5 LOS: 1 day Needs Prior to Discharge: To Be Determined Spoke to pt waiver coordinator , she states she is working on getting pt a caregiver, states pt gets 14 meals a week, he has an emergency response button and a nurse sees him once a week. Pt nurse is from [facility] ( [phone]). Carmen would like AVS faxed at d/c to [phone] SIGNATURE: Carly Man RN,BSN PATIENT NAME: Pedro Pablo Sierra DATE: October 09, 2019 TIME: 1:44 PM PAGER/CONTACT #: [phone] [facility] CASE MGT INIT [place] 2019 CASE MGT INIT [facility] HNO ID: [id number] Author: Carly Hutchison) Donovan RN Service: Case Management Author Type: Registered Nurse Type: Care Mgt Initial Assessment Filed: 10/09/2019 12:41 PM Note Text: CARE MANAGEMENT: ASSESSMENT AND DISCHARGE PLAN SERVICE DATE: October 09, 2019 SERVICE TIME: 1240 PRIMARY CARE PHYSICIAN: DAIJA MORTON MD ADMISSION STATUS: Inpatient Needs Prior to Discharge: To Be Determined MEDICAL: [facility] MEDICARE 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 Stated Goals: To improve my functional status;To have reduction in symptoms;To return home to life as it was Health Insurance: Medicare;Medicaid Health Issues Impacting Discharge Plan: Newly diagnosed;Chronic Newly Diagnosed: s/p Redo left ENROLLMENT MANAGEMENT VICE PRESIDENT endarterectomy, left profundoplasty, left iliac stenting Chronic: HTN, HLD, COPD, 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 Last discharge within 30 days: No Advance Directive: Current Advance Directive: Health Care Power of Orthopedic Physician Assistant;Living Will In Chart: Yes Up To Date [...] Completely I feel financially burdened by my ual-li-kmnltt expenses for my prescription medication:: 0 - Disagree Completely Risk Score: 0 Patient is categorized as: Low risk < 2 Are you interested in bedside delivery of your medications? No Is Patient Psychosocially Complex?: No ASSESSMENT AND PLAN: Medical Needs: Medical Needs: Two or more chronic diseases;Fall risk or frequent falls Psychosocial Needs: Psychosocial Needs: None FREEDOM OF CHOICE EXPLAINED: [place] of Choice Given: No Reason Not Given: No placements necessary POTENTIAL TRANSITION PLANS To Be Determined 69 yo male admitted for vascular procedure, vascular surgery following. 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 Pt states B/B [...] 09, 2019 TIME: 12:26 PM PAGER/CONTACT #: [phone] Normal [facility] CBCon 10-09-2019 Erythrocyte distribution width (RBC) [Ratio] 15.7 % High 11.5-15.0 [facility] Comment on above: Performed By: #### C BC, BMP, MG1, PHOS, PTT, PT ####[place] [phone] Hematocrit (Bld) [Volume fraction] 28.4 % Low 39.0-51.0 [facility] Comment on above: Performed By: #### C BC, BMP, MG1, PHOS, PTT, PT ####[place] [phone] MCH (RBC) [Entitic mass] 30.2 pG Normal 26.0-34.0 [facility] Comment on above: Performed By: #### C BC, BMP, MG1, PHOS, PTT, PT ####[place] [phone] MCHC (RBC) [Mass/Vol] 32.7 g/dL Normal 30.5-36.0 [facility] Comment on above: Performed By: #### C BC, BMP, MG1, PHOS, PTT, PT ####[place] [phone] MCV (RBC) [Entitic vol] 92.2 fL Normal 80.0-100.0 [facility] Comment on above: Performed By: #### C BC, BMP, MG1, PHOS, PTT, PT ####[place] [phone] Platelet mean volume (Bld) [Entitic vol] 9.9 fL Normal 9.0-12.7 [facility] Comment on above: Performed By: #### C BC, BMP, MG1, PHOS, PTT, PT ####[place] [phone] Platelets (Bld) [#/Vol] 220 10*3/uL Normal 150-400 [facility] Comment on above: Performed By: #### C BC, BMP, MG1, PHOS, PTT, PT ####[place]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 Morton MD Work Phone: 4(060)114-882412 [place] [address] 12-17-2024 18:00-0400 Inhaled oxygen flow rate 2 L/min Dr. Daija Morton MD Work Phone: 4(448)225-831312 [place] [address] 12-17-2024 16:21-0400 Body height 172.[address] Daija Morton MD Work Phone: 7(122)742-276312 [place] [address] 12-17-2024 16:21-0400 Body mass index (BMI) [Ratio] 24.5 kg/m2 Dr. Daija Morton MD Work Phone: 1(066)400-145212 [place] [address] 12-17-2024 16:21-0400 Body weight [address] Daija Morton MD Work Phone: 2(082)442-288512 [place] [address] 12-16-2024 20:45-0400 Heart rate 76 /min Dr. Daija Morton MD Work Phone: 2(743)548-835212 [place] [address] 12-16-2024 20:45-0400 Respiratory rate 20 /min Dr. Daija Morton MD Work Phone: 6(566)825-858412 [place] [address] 12-16-2024 19:55-0400 Body temperature 98 [degF] Dr. Daija Morton MD Work Phone: 3(548)340-440112 [place] [address] 12-16-2024 19:55-0400 Diastolic blood pressure 72 mm[Hg] Dr. Daija Morton MD Work Phone: 8(823)821-373212 [place] [address] 12-16-2024 19:55-0400 Inhaled oxygen flow rate 2 L/min Dr. Daija Morton MD Work Phone: 7(168)181-676312 [place] [address] 12-16-2024 19:55-0400 SaO2% (BldA) [Mass fraction] 94 % Dr. Daija Morton MD Work Phone: 3(112)179-694912 [place] [address] 12-16-2024 19:55-0400 Systolic blood pressure 160 mm[Hg] Dr. Daija Morton MD Work Phone: 3(656)645-514712 [place] [address] 12-16-2024 03:13-0400 Body mass index (BMI) [Ratio] 23.4 kg/m2 Dr. aDija Morton MD Work Phone: 7(015)947-163812 [place] [address] 12-16-2024 03:13-0400 Body weight 70.[address] Daija Morton MD Work Phone: 6(610)274-913212 [place] [address] 12-14-2024 13:01-0400 Body height 172.[address] Daija Morton MD Work Phone: 7(196)237-595412 [place] [address] 12-13-2024 20:55-0400 Body temperature 98.3 [degF] Dr. Daija Morton MD Work Phone: 9(742)939-548112 [place] [address] 12-13-2024 20:55-0400 Diastolic blood pressure 73 mm[Hg] Dr. Daija Morton MD Work Phone: 0(287)829-672412 [place] [address] 12-13-2024 20:55-0400 Heart rate 65 /min Dr. Daija Morton MD Work Phone: 6(209)825-957812 [place] [address] 12-13-2024 20:55-0400 Respiratory rate 26 /min Dr. Daija Morton MD Work Phone: 0(452)175-634512 [place] [address] 12-13-2024 20:55-0400 SaO2% (BldA) [Mass fraction] 98 % Dr. Daija Morton MD Work Phone: 3(712)654-329212 [place] [address] 12-13-2024 20:55-0400 Systolic blood pressure 191 mm[Hg] Dr. Daija Morton MD Work Phone: [facility] 12-13-2024 18:10-0400 Inhaled oxygen flow rate 3.5 L/min Dr. Daija Morton MD Work Phone: [facility] 12-13-2024 17:46-0400 Body height 172.[address] Daija Morton MD Work Phone: 6(130)361-104283 [place] [address] 12-13-2024 17:46-0400 Body mass index (BMI) [Ratio] 24.3 kg/m2 Dr. Daija Morton MD Work Phone: [facility] 12-13-2024 17:46-0400 Body weight 72.[address] Daija Morton MD Work Phone: [facility] 12-12-2024 13:57-0400 Body mass index (BMI) [Ratio] 24.05 kg/m2 Anjel Older [employer].LEGAL SERVICES MANAGER Work Phone: [facility] 12-12-2024 13:57-0400 Body weight 71.76 kg Anjel Older [employer]ER.LEGAL SERVICES MANAGER Work Phone: [facility] 12-12-2024 13:57-0400 Diastolic blood pressure 83 mm[Hg] Anjel Older [employer]ER.LEGAL SERVICES MANAGER Work Phone: [facility] 12-12-2024 13:57-0400 Heart rate 65 /min Anjel Older [employer]ER.LEGAL SERVICES MANAGER Work Phone: [facility] 12-12-2024 13:57-0400 Respiratory rate 20 /min Anjel Older [employer]ER.LEGAL SERVICES MANAGER Work Phone: [facility] 12-12-2024 13:57-0400 SaO2% (BldA) [Mass fraction] 94 % Anjel Older [employer]ER.LEGAL SERVICES MANAGER Work Phone: [facility] 12-12-2024 13:57-0400 Systolic blood pressure 185 mm[Hg] Anjel Older [employer]UP [employer]ER.LEGAL SERVICES MANAGER Work Phone: [facility] 09-02-2024 20:48-0400 Heart rate 62 /min Dr. Daija Morton MD Work Phone: 2(511)893-919512 [place] [address] 09-02-2024 19:34-0400 Body temperature 97.5 [degF] Dr. Daija Morton MD Work Phone: 7(249)017-442512 [place] [address] 09-02-2024 19:34-0400 Diastolic blood pressure 77 mm[Hg] Dr. Daija Morton MD Work Phone: 8(407)290-194412 [place] [address] 09-02-2024 19:34-0400 Respiratory rate 16 /min Dr. Daija Morton MD Work Phone: 9(728)066-962712 [place] [address] 09-02-2024 19:34-0400 SaO2% (BldA) [Mass fraction] 92 % Dr. Daija Morton MD Work Phone: 5(797)434-879012 [place] [address] 09-02-2024 19:34-0400 Systolic blood pressure 146 mm[Hg] Dr. Daija Morton MD Work Phone: 2(834)429-726512 [place] [address] 09-02-2024 10:22-0400 Body height 172.[address] Daija Morton MD Work Phone: 8(428)724-566112 [place] [address] 09-02-2024 10:22-0400 Body weight 68.[address] Daija Morton MD Work Phone: 6(007)821-511512 [place] [address] 09-02-2024 06:00-0400 Body mass index (BMI) [Ratio] 22.8 kg/m2 Dr. Daija Morton MD Work Phone: 7(031)510-273812 [place] [address] 09-01-2024 22:41-0400 Inhaled oxygen flow rate 2 L/min Dr. Daija Morton MD Work Phone: 6(156)173-705512 [place] [address] 08-25-2024 18:11-0400 Diastolic blood pressure 90 mm[Hg] Dr. Daija Morton MD Work Phone: 9(292)680-386912 [place] [address] 08-25-2024 18:11-0400 Heart rate 66 /min Dr. Daija Morton MD Work Phone: 0(792)912-400712 [place] [address] 08-25-2024 18:11-0400 Respiratory rate 24 /min Dr. Daija Morton MD Work Phone: [facility] 08-25-2024 18:11-0400 SaO2% (BldA) [Mass fraction] 93 % Dr. Daija Morton MD Work Phone: [facility] 08-25-2024 18:11-0400 Systolic blood pressure 197 mm[Hg] Dr. Daija Morton MD Work Phone: [facility] 08-25-2024 16:12-0400 Body height 165.[address] Daija Morton MD Work Phone: [facility] 08-25-2024 16:12-0400 Body temperature 97.7 [degF] Dr. Daija Morton MD Work Phone: [facility] 03-23-2024 13:19-0400 Diastolic blood pressure 98 mm[Hg] Pura Praisler-Wood [employer].LEGAL SERVICES MANAGER Work Phone: [facility] 03-23-2024 13:19-0400 Systolic blood pressure 230 mm[Hg] Pura Praisler-Wood O[employer]UP [employer]ER.LEGAL SERVICES MANAGER Work Phone: [facility] 03-23-2024 13:12-0400 Body mass index (BMI) [Ratio] 20.92 kg/m2 Pura Praisler-Wood [employer]UP [employer]ER.LEGAL SERVICES MANAGER Work Phone: [facility] 03-23-2024 13:12-0400 Body temperature 96.91 [degF] Pura Praisler-Wood [employer]UP [employer]ER.LEGAL SERVICES MANAGER Work Phone: [facility] 03-23-2024 13:12-0400 Body weight 62.4 kg Pura Praisler-Wood O[employer]UP [employer]ER.LEGAL SERVICES MANAGER Work Phone: [facility] 03-23-2024 13:12-0400 Heart rate 74 /min Pura Praisler-Wood O[employer]UP [employer]ER.LEGAL SERVICES MANAGER Work Phone: [facility] 03-23-2024 13:12-0400 Respiratory rate 16 /min Pura Praisler-Wood O[employer]UP [employer]ER.LEGAL SERVICES MANAGER Work Phone: [facility] 11-21-2023 12:49-0400 Diastolic blood pressure 94 mm[Hg] Rebekah Bogner PA-C Work Phone: [facility] 11-21-2023 12:49-0400 Systolic blood pressure 200 mm[Hg] Rebekah Bogner PA-C Work Phone: [facility] 11-21-2023 12:42-0400 Body mass index (BMI) [Ratio] 22.96 kg/m2 Rebekah Bogner PA-C Work Phone: [facility] 11-21-2023 12:42-0400 Body weight 68.49 kg Reebkah Bogner PA-C Work Phone: [facility] 11-21-2023 12:42-0400 Heart rate 60 /min Rebekah Bogner PA-C Work Phone: [facility] 11-21-2023 12:42-0400 Respiratory rate 16 /min Rebekah Bogner PA-C Work Phone: [facility] 11-21-2023 12:42-0400 SaO2% (BldA) [Mass fraction] 92 % Rebekah Bogner PA-C Work Phone: [facility] 08-02-2023 19:35-0500 Inhaled oxygen flow rate 2 L/min Dr. Daija Morton Work Phone: [facility] 08-02-2023 19:27-0500 Body temperature 97.9 [degF] Dr. Daija Morton Work Phone: [facility] 08-02-2023 19:27-0500 Diastolic blood pressure 59 mm[Hg] Dr. Daija Morton Work Phone: [facility] 08-02-2023 19:27-0500 Heart rate 98 /min Dr. Daija Morton Work Phone: [facility] 08-02-2023 19:27-0500 Respiratory rate 16 /min Dr. Daija Morton Work Phone: 4(223)272-672783 [place] [address] 08-02-2023 19:27-0500 SaO2% (BldA) [Mass fraction] 93 % Dr. Daija Morton Work Phone: 5(772)748-083912 [place] [address] 08-02-2023 19:27-0500 Systolic blood pressure 149 mm[Hg] Dr. Daija Morton Work Phone: 8(764)552-061312 [place] [address] 07-31-2023 10:17-0500 Body height 172.[address] Daija Morton Work Phone: 8(714)334-911112 [place] [address] 07-31-2023 10:17-0500 Body weight 67.[address] Daija Morton Work Phone: 8(738)340-295412 [place] [address] 07-31-2023 00:57-0500 Body mass index (BMI) [Ratio] 22.4 kg/m2 Dr. Daija Morton Work Phone: 3(805)319-186612 [place] [address] 07-31-2023 00:05-0500 Body temperature 99 [degF] Dr. Daija Morton Work Phone: 6(416)626-468012 [place] [address] 07-31-2023 00:05-0500 Diastolic blood pressure 107 mm[Hg] Dr. Daija Morton Work Phone: 0(034)942-198912 [place] [address] 07-31-2023 00:05-0500 Heart rate 107 /min Dr. Daija Morton Work Phone: 1(675)436-403612 [place] [address] 07-31-2023 00:05-0500 Respiratory rate 30 /min Dr. Daija Morton Work Phone: 8(321)018-796212 [place] [address] 07-31-2023 00:05-0500 SaO2% (BldA) [Mass fraction] 98 % Dr. Daija Morton Work Phone: 8(369)363-606412 [place] [address] 07-31-2023 00:05-0500 Systolic blood pressure 173 mm[Hg] Dr. Daija Morton Work Phone: 6(716)201-442212 [place] [address] 07-30-2023 23:25-0500 Inhaled oxygen flow rate 3 L/min Dr. Daija Morton Work Phone: 7(021)446-972383 [place] [address] 07-30-2023 20:30-0500 Body height 172.[address] Daija Morton Work Phone: 6(781)329-090912 [place] [address] 07-30-2023 20:30-0500 Body mass index (BMI) [Ratio] 24.2 kg/m2 Dr. Daija Morton Work Phone: 8(375)036-948112 [place] [address] 07-30-2023 20:30-0500 Body weight 72.[address] Daija Morton Work Phone: 1(995)404-026212 [place] [address] 07-26-2023 12:10-0500 Diastolic blood pressure 59 mm[Hg] Dr. Daija Morton Work Phone: 1(570)041-438612 [place] [address] 07-26-2023 12:10-0500 Heart rate 67 /min Dr. Daija Morton Work Phone: 1(458)875-038312 [place] [address] 07-26-2023 12:10-0500 Respiratory rate 18 /min Dr. Daija Morton Work Phone: 4(435)603-390612 [place] [address] 07-26-2023 12:10-0500 SaO2% (BldA) [Mass fraction] 90 % Dr. Daija Morton Work Phone: 1(389)467-121112 [place] [address] 07-26-2023 12:10-0500 Systolic blood pressure 107 mm[Hg] Dr. Daija Morton Work Phone: 6(142)702-704912 [place] [address] 07-26-2023 08:38-0500 Body temperature 97.8 [degF] Dr. Daija Morton Work Phone: 0(741)670-100212 [place] [address] 07-26-2023 06:59-0500 Inhaled oxygen flow rate 2 L/min Dr. Daija Morton Work Phone: 5(602)062-661612 [place] [address] 07-25-2023 16:00-0500 Body weight 51.[address] Daija Morton Work Phone: 6(916)552-640012 [place] [address] 07-24-2023 21:55-0500 Body mass index (BMI) [Ratio] 17.4 kg/m2 Dr. Daija Morton Work Phone: 2(622)399-406112 [place] [address] 07-24-2023 21:13-0500 Diastolic blood pressure 89 mm[Hg] Dr. Daija Morton Work Phone: 0(827)389-096412 [place] [address] 07-24-2023 21:13-0500 Heart rate 65 /min Dr. Daija Morton Work Phone: 3(483)086-047012 [place] [address] 07-24-2023 21:13-0500 Respiratory rate 16 /min Dr. Daija Morton Work Phone: 0(706)992-681112 [place] [address] 07-24-2023 21:13-0500 SaO2% (BldA) [Mass fraction] 91 % Dr. Daija Morton Work Phone: 0(474)527-327912 [place] [address] 07-24-2023 21:13-0500 Systolic blood pressure 210 mm[Hg] Dr. Daija Morton Work Phone: 6(496)659-315812 [place] [address] 07-24-2023 17:27-0500 Body mass index (BMI) [Ratio] 22.8 kg/m2 Dr. Daija Morton Work Phone: 5(476)444-277612 [place] [address] 07-24-2023 17:27-0500 Body weight [address] Daija Morton Work Phone: 4(962)284-882912 [place] [address] 07-24-2023 16:44-0500 Body height 172.[address] Daija Morton Work Phone: 0(795)841-154112 [place] [address] 07-24-2023 16:44-0500 Body temperature 96.7 [degF] Dr. Daija Morton Work Phone: 1(072)602-061412 [place] [address] 04-04-2023 11:37-0400 Diastolic blood pressure 79 mm[Hg] Dr. Daija Morton Work Phone: 9(151)112-791212 [place] [address] 04-04-2023 11:37-0400 Heart rate 44 /min Dr. Daija Morton Work Phone: 9(279)936-209012 [place] [address] 04-04-2023 11:37-0400 Systolic blood pressure 188 mm[Hg] Dr. Daija Morton Work Phone: 9(575)734-477712 [place] [address] 04-04-2023 10:02-0400 Body temperature 97.6 [degF] Dr. Daija Morton Work Phone: 3(825)239-571512 [place] [address] 04-04-2023 10:02-0400 Respiratory rate 18 /min Dr. Daija Morton Work Phone: 1(215)010-461212 [place] [address] 04-04-2023 10:02-0400 SaO2% (BldA) [Mass fraction] 92 % Dr. Daija Morton Work Phone: 9(247)767-934212 [place] [address] 04-03-2023 15:53-0400 Inhaled oxygen flow rate 2 L/min Dr. Daija Morton Work Phone: 2(075)266-898812 [place] [address] 03-31-2023 14:20-0400 Body mass index (BMI) [Ratio] 20.5 kg/m2 Dr. Daija Morton Work Phone: 0(913)386-982012 [place] [address] 03-31-2023 14:20-0400 Body weight [address] Daija Morton Work Phone: 2(370)131-644012 [place] [address] 03-31-2023 09:57-0400 Body height 175.[address] Daija Morton Work Phone: 9(328)491-969212 [place] [address] 03-30-2023 20:26-0400 Body temperature 96.7 [degF] Dr. Daija Morton Work Phone: 5(849)115-238012 [place] [address] 03-30-2023 20:26-0400 Diastolic blood pressure 78 mm[Hg] Dr. Daija Morton Work Phone: 2(179)583-445112 [place] [address] 03-30-2023 20:26-0400 Heart rate 71 /min Dr. Daija Morton Work Phone: 1(315)[phone] [place] [id number] 03-30-2023 20:26-0400 Respiratory rate 18 /min Dr. Daija Morton Work Phone: 0(790)[phone] [place] [id number] 03-30-2023 20:26-0400 SaO2% (BldA) [Mass fraction] 97 % Dr. Daija Morton Work Phone: 7(930)[phone] [place] [id number] 03-30-2023 20:26-0400 Systolic blood pressure 181 mm[Hg] Dr. Daija Morton Work Phone: 8(188)[phone] [place] [id number] 03-30-2023 14:10-0400 Body height 172.[address] Daija Morton Work Phone: 8(474)539-100712 [place] [id number] 03-29-2023 19:22-0400 Body mass index (BMI) [Ratio] 21.9 kg/m2 Dr. Daija Morton Work Phone: 0(759)[phone] [place] [id number] 03-29-2023 19:22-0400 Body weight 65.[address] Daija Morton Work Phone: 2(598)[phone] [place] [id number] 03-29-2023 19:20-0400 Diastolic blood pressure 80 mm[Hg] Dr. Daija Morton Work Phone: 0(190)[phone] [place] [id number] 03-29-2023 19:20-0400 Heart rate 84 /min Dr. Daija Morton Work Phone: 8(595)[phone] [place] [address] 03-29-2023 19:20-0400 Respiratory rate 18 /min Dr. Daija Morton Work Phone: 1(159)[phone] [place] [address] 03-29-2023 19:20-0400 SaO2% (BldA) [Mass fraction] 92 % Dr. Daija Morton Work Phone: 6(259)[phone] [place] [address] 03-29-2023 19:20-0400 Systolic blood pressure 195 mm[Hg] Dr. Daija Morton Work Phone: 3(767)[phone] [place] [address] 03-29-2023 18:17-0400 Body temperature 97.6 [degF] Dr. Daija Morton Work Phone: 9(870)[phone] [place] [address] 02-25-2023 19:41-0400 Diastolic blood pressure 87 mm[Hg] Dr. Daija Morton Work Phone: 2(216)[phone] [place] [address] 02-25-2023 19:41-0400 Heart rate 67 /min Dr. Daija Morton Work Phone: 6(416)[phone] [place] [address] 02-25-2023 19:41-0400 Respiratory rate 15 /min Dr. Daija Morton Work Phone: [facility] 02-25-2023 19:41-0400 SaO2% (BldA) [Mass fraction] 97 % Dr. Daija Morton Work Phone: [facility] 02-25-2023 19:41-0400 Systolic blood pressure 193 mm[Hg] Dr. Daija Morton Work Phone: [facility] 02-25-2023 19:37-0400 Body mass index (BMI) [Ratio] 22.4 kg/m2 Dr. Daiaj Morton Work Phone: [facility] 02-25-2023 19:37-0400 Body weight 67.[address] Daija Morton Work Phone: [facility] 02-25-2023 17:22-0400 Body temperature 97 [degF] Dr. Daija Morton Work Phone: [facility] 02-18-2023 01:56-0400 Diastolic blood pressure 113 mm[Hg] [facility] 02-18-2023 01:56-0400 Heart rate 88 /min [facility] 02-18-2023 01:56-0400 Respiratory rate 16 /min [facility] 02-18-2023 01:56-0400 Systolic blood pressure 157 mm[Hg] [facility] 02-18-2023 01:00-0400 SaO2% (BldA) [Mass fraction] 98 % [facility] 02-17-2023 21:35-0400 Body mass index (BMI) [Ratio] 21.5 kg/m2 [facility] 02-17-2023 21:35-0400 Body weight 66.13 kg [facility] 02-17-2023 21:32-0400 Body height 175.26 cm [facility] 02-17-2023 21:32-0400 Body temperature 96.4 [degF] [facility] 12-31-2022 15:16-0400 Body height 173 cm [facility] 12-31-2022 15:16-0400 Body mass index (BMI) [Ratio] 21.7 kg/m2 [facility] 12-31-2022 15:16-0400 Body temperature 96.6 [degF] [facility] 12-31-2022 15:16-0400 Body weight 65.2 kg [facility] 12-31-2022 15:16-0400 Diastolic blood pressure 66 mm[Hg] [facility] 12-31-2022 15:16-0400 Heart rate 75 /min [facility] 12-31-2022 15:16-0400 Respiratory rate 15 /min [facility] 12-31-2022 15:16-0400 SaO2% (BldA) [Mass fraction] 93 % [facility] 12-31-2022 15:16-0400 Systolic blood pressure 118 mm[Hg] [facility] 12-26-2022 14:04-0400 Diastolic blood pressure 90 mm[Hg] Ryan May MD Work Phone: [facility] 12-26-2022 14:04-0400 Heart rate 50 /min Ryan May MD Work Phone: [facility] 12-26-2022 14:04-0400 Systolic blood pressure 207 mm[Hg] Ryan May MD Work Phone: [facility] 10-22-2022 21:40-0400 Diastolic Blood Pressure Non-Invasive [address] PRIYANKA FRANCO MD [facility] 10-22-2022 21:40-0400 Heart rate 88 /min DR PRIYANKA FRANCO MD [facility] 10-22-2022 21:40-0400 Respiratory rate 20 /min DR PRIYANKA FRANCO MD [facility] 10-22-2022 21:40-0400 Systolic Blood Pressure Non-Invasive [address] PRIYANKA FRANCO MD [facility] 10-22-2022 19:59-[address] PRIYANKA RFANCO MD [facility] 10-22-2022 19:59-0400 Body temperature 98.6 [degF] DR PRIYANKA FRANCO MD [facility] 10-22-2022 19:59-0400 Diastolic Blood Pressure Non-Invasive [address] PRIYANKA FRANCO MD [facility] 10-22-2022 19:59-0400 Heart rate 97 /min DR PRIYANKA FRANCO MD [facility] 10-22-2022 19:59-0400 Respiratory rate 21 /min DR PRIYANKA FRANCO MD [facility] 10-22-2022 19:59-0400 Systolic Blood Pressure Non-Invasive [address] PRIYANKA FRANCO MD [facility] 10-21-2022 18:30-0400 Body height 172.72 cm [facility] 10-21-2022 18:30-0400 Body temperature 97.5 [degF] [facility] 10-21-2022 18:30-0400 Diastolic blood pressure 88 mm[Hg] [facility] 10-21-2022 18:30-0400 Heart rate 99 /min [facility] 10-21-2022 18:30-0400 Respiratory rate 16 /min [facility] 10-21-2022 18:30-0400 SaO2% (BldA) [Mass fraction] 96 % [facility] 10-21-2022 18:30-0400 Systolic blood pressure 168 mm[Hg] [facility] 08-27-2022 10:51-0500 Diastolic blood pressure 91 mm[Hg] Daija Morton MD Work Phone: [facility] 08-27-2022 10:51-0500 Heart rate 69 /min Daija Morton MD Work Phone: [facility] 03-11-2023 10:51-0500 Systolic blood pressure 212 mm[Hg] Daija Morton MD Work Phone: [facility] 08-27-2022 10:47-0500 Body temperature 97 [degF] Daija Morton MD Work Phone: [facility] 08-27-2022 10:47-0500 Body weight 71.22 kg Daija Morton MD Work Phone: [facility] 08-27-2022 10:47-0500 Respiratory rate 28 /min Daija Morton MD Work Phone: [facility] 08-27-2022 10:47-0500 SaO2% (BldA) [Mass fraction] 95 % Daija Morton MD Work Phone: [facility] 03-10-2022 10:10-0400 Diastolic blood pressure 90 mm[Hg] Anjel Older OCCUP THER.LEGAL SERVICES MANAGER Work Phone: [facility] 03-10-2022 10:10-0400 Heart rate 88 /min Anjel Older OCCUP THER.LEGAL SERVICES MANAGER Work Phone: [facility] 03-10-2022 10:10-0400 Respiratory rate 16 /min Anjel Older OCCUP THER.LEGAL SERVICES MANAGER Work Phone: [facility] 03-10-2022 10:10-0400 Systolic blood pressure 158 mm[Hg] Anjel Older OCCUP THER.LEGAL SERVICES MANAGER Work Phone: [facility] 03-08-2022 23:13-0400 Diastolic blood pressure 93 mm[Hg] Dr. Daija Morton Work Phone: [facility] Work Phone: 03-08-2022 23:13-0400 Heart rate 71 /min Dr. Daija Morton Work Phone: [facility] Work Phone: 03-08-2022 23:13-0400 Inhaled oxygen flow rate 3 L/min Dr. Daija Morton Work Phone: [facility] Work Phone: 03-08-2022 23:13-0400 Respiratory rate 16 /min Dr. Daija Morton Work Phone: [facility] Work Phone: 03-08-2022 23:13-0400 SaO2% (BldA) [Mass fraction] 96 % Dr. Daija Morton Work Phone: [facility] Work Phone: 03-08-2022 23:13-0400 Systolic blood pressure 178 mm[Hg] Dr. Daija Morton Work Phone: [facility] Work Phone: 03-08-2022 17:31-0400 Body height 172.[address] Daija Morton Work Phone: [facility] Work Phone: 03-08-2022 17:31-0400 Body mass index (BMI) [Ratio] 20.5 kg/m2 Dr. Daija Morton Work Phone: [facility] Work Phone: 03-08-2022 17:31-0400 Body temperature 97.6 [degF] Dr. Daija Morton Work Phone: [facility] Work Phone: 03-08-2022 17:31-0400 Body weight 61.[address] Daija Morton Work Phone: [facility] Work Phone: 03-07-2022 17:28-0400 Respiratory rate 18 /min Dr. Daija Morton Work Phone: [facility] Work Phone: 03-07-2022 15:23-0400 Body height 172.[address] Daija Morton Work Phone: [facility] Work Phone: 03-07-2022 15:23-0400 Body mass index (BMI) [Ratio] 20.5 kg/m2 Dr. Daija Morton Work Phone: [facility] Work Phone: 03-07-2022 15:23-0400 Body temperature 97.4 [degF] Dr. Daija Morton Work Phone: [facility] Work Phone: 03-07-2022 15:23-0400 Body weight 61.[address] Daija Morton Work Phone: [facility] Work Phone: 03-07-2022 15:23-0400 Diastolic blood pressure 88 mm[Hg] Dr. Daija Morton Work Phone: [facility] Work Phone: 03-07-2022 15:23-0400 Heart rate 84 /min Dr. Daija Morton Work Phone: [facility] Work Phone: 03-07-2022 15:23-0400 SaO2% (BldA) [Mass fraction] 93 % Dr. Daija Morton Work Phone: [facility] Work Phone: 03-07-2022 15:23-0400 Systolic blood pressure 193 mm[Hg] Dr. Daija Morton Work Phone: [facility] Work Phone: 03-02-2022 19:05-0400 Diastolic blood pressure 81 mm[Hg] Dr. Daija Morton Work Phone: [facility] Work Phone: 03-02-2022 19:05-0400 Heart rate 56 /min Dr. Daija Morton Work Phone: [facility] Work Phone: 03-02-2022 19:05-0400 Respiratory rate 18 /min Dr. Daija Morton Work Phone: [facility] Work Phone: 03-02-2022 19:05-0400 SaO2% (BldA) [Mass fraction] 92 % Dr. Daija Morton Work Phone: [facility] Work Phone: 03-02-2022 19:05-0400 Systolic blood pressure 209 mm[Hg] Dr. Daija Morton Work Phone: [facility] Work Phone: 03-02-2022 17:41-0400 Body temperature 97.5 [degF] Dr. Daija Morton Work Phone: [facility] Work Phone: 03-02-2022 15:10-0400 Body height 172.[address] Daija Morton Work Phone: [facility] Work Phone: 03-02-2022 15:10-0400 Body mass index (BMI) [Ratio] 23.5 kg/m2 Dr. Daija Morton Work Phone: [facility] Work Phone: 03-02-2022 15:10-0400 Body weight 70.[address] Daija Morton Work Phone: [facility] Work Phone: 01-31-2022 13:59-0400 Body height 172.7 cm Ryan May MD Work Phone: [facility] 01-31-2022 13:59-0400 Body weight 68.49 kg Ryan May MD Work Phone: [facility] 01-31-2022 13:59-0400 Diastolic blood pressure 99 mm[Hg] Ryan May MD Work Phone: [facility] 01-31-2022 13:59-0400 Systolic blood pressure 168 mm[Hg] Ryan May MD Work Phone: [facility] 01-28-2022 15:53-0400 Diastolic blood pressure 88 mm[Hg] Dr. Daija Morton Work Phone: [facility] Work Phone: 01-28-2022 15:53-0400 Heart rate 54 /min Dr. Daija Morton Work Phone: [facility] Work Phone: 01-28-2022 15:53-0400 Respiratory rate 20 /min Dr. Daija Morton Work Phone: [facility] Work Phone: 01-28-2022 15:53-0400 SaO2% (BldA) [Mass fraction] 97 % Dr. Daija Morton Work Phone: [facility] Work Phone: 01-28-2022 15:53-0400 Systolic blood pressure 200 mm[Hg] Dr. Daija Morton Work Phone: [facility] Work Phone: 01-28-2022 14:03-0400 Body height 172.[address] Daija Morton Work Phone: [facility] Work Phone: 01-28-2022 14:03-0400 Body mass index (BMI) [Ratio] 22.9 kg/m2 Dr. Daija Morton Work Phone: [facility] Work Phone: 01-28-2022 14:03-0400 Body temperature 96.8 [degF] Dr. Daija Morton Work Phone: [facility] Work Phone: 01-28-2022 14:03-0400 Body weight 68.[address] Daija Morton Work Phone: [facility] Work Phone: 01-28-2022 11:41-0400 Diastolic blood pressure 92 mm[Hg] Anjel Braga OCCUP [employer]ER.LEGAL SERVICES MANAGER Work Phone: [facility] 01-28-2022 11:41-0400 Heart rate 56 /min Anjel Older OCCUP THER.LEGAL SERVICES MANAGER Work Phone: [facility] 01-28-2022 11:41-0400 Systolic blood pressure 200 mm[Hg] Anjel Older OCCUP THER.LEGAL SERVICES MANAGER Work Phone: [facility] 01-28-2022 10:57-0400 Body weight 68.49 kg Anjel Older OCCUP THER.LEGAL SERVICES MANAGER Work Phone: [facility] 01-28-2022 10:57-0400 Respiratory rate 16 /min Anjel Older OCCUP THER.LEGAL SERVICES MANAGER Work Phone: [facility] 01-20-2022 13:23-0400 Diastolic blood pressure 102 mm[Hg] Ye Coello MD Work Phone: [facility] 01-20-2022 13:23-0400 Heart rate 61 /min Ye Coello MD Work Phone: [facility] 01-20-2022 13:23-0400 SaO2% (BldA) [Mass fraction] 94 % Ye Coello MD Work Phone: [facility] 01-20-2022 13:23-0400 Systolic blood pressure 172 mm[Hg] Ye Coello MD Work Phone: [facility] 01-14-2022 10:26-0400 Body temperature 98.2 [degF] Harriett Albert O[employer]UP [employer]ER[employer]MANAGER [employer] Work Phone: [facility] 01-14-2022 10:26-0400 Body weight 69.67 kg Harriett Albert OCCUP THER.MANAGER [employer] Work Phone: [facility] 01-14-2022 10:26-0400 Diastolic blood pressure 80 mm[Hg] Harriett Albert O[employer]UP THER.MANAGER [employer] Work Phone: [facility] 01-14-2022 10:26-0400 Heart rate 78 /min Harriett Albert OCCUP THER.MANAGER [employer] Work Phone: [facility] 01-14-2022 10:26-0400 Respiratory rate 16 /min Harriett Albert OCCUP THER.MANAGER [employer] Work Phone: [facility] 01-14-2022 10:26-0400 SaO2% (BldA) [Mass fraction] 95 % Harriett Albert OCCUP [employer]ER.MANAGER [employer] Work Phone: [facility] 01-14-2022 10:26-0400 Systolic blood pressure 186 mm[Hg] Harriett Albert OCCUP THER.MANAGER [employer] Work Phone: [facility] 11-30-2021 15:02-0400 Heart rate 75 /min Dr. Daija Morton Work Phone: [facility] Work Phone: 11-30-2021 15:02-0400 Respiratory rate 17 /min Dr. Daija Morton Work Phone: [facility] Work Phone: 11-30-2021 13:57-0400 Body temperature 97.4 [degF] Dr. Daija Morton Work Phone: [facility] Work Phone: 11-30-2021 13:57-0400 Diastolic blood pressure 67 mm[Hg] Dr. Daija Morton Work Phone: [facility] Work Phone: 11-30-2021 13:57-0400 SaO2% (BldA) [Mass fraction] 93 % Dr. Daija Morton Work Phone: [facility] Work Phone: 11-30-2021 13:57-0400 Systolic blood pressure 161 mm[Hg] Dr. Daija Morton Work Phone: [facility] Work Phone: 11-30-2021 11:25-0400 Inhaled oxygen flow rate 3 L/min Dr. Daija Morton Work Phone: [facility] Work Phone: 11-29-2021 12:48-0400 Body height 172.[address] Daija Morton Work Phone: [facility] Work Phone: 11-29-2021 12:48-0400 Body weight 71.[address] Daija Morton Work Phone: [facility] Work Phone: 11-27-2021 05:25-0400 Body mass index (BMI) [Ratio] 24 kg/m2 Dr. Daija Morton Work Phone: [facility] Work Phone: 11-25-2021 21:36-0400 Body temperature 97.8 [degF] Dr. Daija Morton Work Phone: [facility] Work Phone: 11-25-2021 21:36-0400 Diastolic blood pressure 40 mm[Hg] Dr. Daija Morton Work Phone: [facility] Work Phone: 11-25-2021 21:36-0400 Heart rate 66 /min Dr. Daija Morton Work Phone: [facility] Work Phone: 11-25-2021 21:36-0400 Respiratory rate 16 /min Dr. Daija Morton Work Phone: [facility] Work Phone: 11-25-2021 21:36-0400 SaO2% (BldA) [Mass fraction] 96 % Dr. Daija Morton Work Phone: [facility] Work Phone: 11-25-2021 21:36-0400 Systolic blood pressure 133 mm[Hg] Dr. Daija Morton Work Phone: [facility] Work Phone: 11-25-2021 17:29-0400 Body height 172.[address] Daija Morton Work Phone: [facility] Work Phone: 11-25-2021 17:29-0400 Body mass index (BMI) [Ratio] 24.7 kg/m2 Dr. Daija Morton Work Phone: [facility] Work Phone: 11-25-2021 17:29-0400 Body weight 73.[address] Daija Morton Work Phone: [facility] Work Phone: 11-16-2021 14:37-0400 Body height 172.7 cm Estephania Pierre OCCUP THER.LEGAL SERVICES MANAGER Work Phone: [facility] 11-16-2021 14:37-0400 Body weight 71.67 kg Estpehania Pierre OCCUP THER.LEGAL SERVICES MANAGER Work Phone: [facility] 11-16-2021 14:37-0400 Diastolic blood pressure 68 mm[Hg] Estephania Pierre OCCUP THER.LEGAL SERVICES MANAGER Work Phone: [facility] 11-16-2021 14:37-0400 Heart rate 64 /min Estephania Pierre OCCUP THER.LEGAL SERVICES MANAGER Work Phone: [facility] 11-16-2021 14:37-0400 SaO2% (BldA) [Mass fraction] 100 % Estephania Pierre OCCUP THER.LEGAL SERVICES MANAGER Work Phone: [facility] 11-16-2021 14:37-0400 Systolic blood pressure 162 mm[Hg] Estephania Pierer OCCUP THER.LEGAL SERVICES MANAGER Work Phone: [facility] 11-08-2021 12:50-0400 Heart rate 73 /min Respiratory Wstr Work Phone: [facility] 11-08-2021 12:50-0400 Respiratory rate 14 /min Respiratory Wstr Work Phone: [facility] 11-08-2021 12:50-0400 SaO2% (BldA) [Mass fraction] 97 % Respiratory Wstr Work Phone: [facility] 11-05-2021 11:22-0400 Body weight 70.31 kg Emilie Jauregui PA-C Work Phone: [facility] 11-05-2021 11:22-0400 Diastolic blood pressure 68 mm[Hg] Emilie Shania PA-C Work Phone: [facility] 11-05-2021 11:22-0400 Heart rate 71 /min Emilie Shania PA-C Work Phone: [facility] 11-05-2021 11:22-0400 Respiratory rate 20 /min Emilie Shania PA-C Work Phone: [facility] 11-05-2021 11:22-0400 SaO2% (BldA) [Mass fraction] 99 % Emilie Shania PA-C Work Phone: [facility] 11-05-2021 11:22-0400 Systolic blood pressure 140 mm[Hg] Emilie Shania PA-C Work Phone: [facility] 10-21-2021 11:30-0400 Diastolic blood pressure 65 mm[Hg] Mi Nurse Work Phone: [facility] 10-21-2021 11:30-0400 Heart rate 81 /min Mi Nurse Work Phone: [facility] 10-21-2021 11:30-0400 Systolic blood pressure 155 mm[Hg] Mi Nurse Work Phone: [facility] 10-13-2021 13:00-0400 Body height 172.7 cm Ye Coello MD Work Phone: [facility] 10-13-2021 13:00-0400 Body weight 71.67 kg Ye Coello MD Work Phone: [facility] 10-13-2021 13:00-0400 Diastolic blood pressure 93 mm[Hg] Ye Coello MD Work Phone: [facility] 10-13-2021 13:00-0400 Heart rate 66 /min Ye Coello MD Work Phone: [facility] 10-13-2021 13:00-0400 Systolic blood pressure 217 mm[Hg] Ye Coello MD Work Phone: [facility] 10-08-2021 17:14-0400 Diastolic blood pressure 62 mm[Hg] Dr. Daija Morton Work Phone: [facility] Work Phone: 10-08-2021 17:14-0400 Heart rate 58 /min Dr. Daija Morton Work Phone: [facility] Work Phone: 10-08-2021 17:14-0400 Respiratory rate 18 /min Dr. Daija Morton Work Phone: [facility] Work Phone: 10-08-2021 17:14-0400 SaO2% (BldA) [Mass fraction] 98 % Dr. Daija Morton Work Phone: [facility] Work Phone: 10-08-2021 17:14-0400 Systolic blood pressure 149 mm[Hg] Dr. Daija Morton Work Phone: [facility] Work Phone: 10-08-2021 14:12-0400 Body height 172.[address] Daija Morton Work Phone: [facility] Work Phone: 10-08-2021 14:12-0400 Body mass index (BMI) [Ratio] 24.7 kg/m2 Dr. Daija Morton Work Phone: [facility] Work Phone: 10-08-2021 14:12-0400 Body temperature 98.1 [degF] Dr. Daija Morton Work Phone: [facility] Work Phone: 10-08-2021 14:12-0400 Body weight 73.[address] Daija Morton Work Phone: [facility] Work Phone: 10-07-2021 11:17-0400 Body temperature 97.59 [degF] Anjel Braga APRN.CNP Work Phone: [facility] 10-07-2021 11:17-0400 Body weight 70.31 kg Anjel Older OCCUP THER.LEGAL SERVICES MANAGER Work Phone: [facility] 10-07-2021 11:17-0400 Diastolic blood pressure 90 mm[Hg] Anjel Older OCCUP THER.LEGAL SERVICES MANAGER Work Phone: [facility] 10-07-2021 11:17-0400 Heart rate 67 /min Anjel Older OCCUP THER.LEGAL SERVICES MANAGER Work Phone: [facility] 10-07-2021 11:17-0400 Respiratory rate 12 /min Anjel Older OCCUP THER.LEGAL SERVICES MANAGER Work Phone: [facility] 10-07-2021 11:17-0400 SaO2% (BldA) [Mass fraction] 96 % Anjel Older OCCUP THER.LEGAL SERVICES MANAGER Work Phone: [facility] 10-07-2021 11:17-0400 Systolic blood pressure 178 mm[Hg] Anjel Older OCCUP THER.LEGAL SERVICES MANAGER Work Phone: [facility] 09-29-2021 16:20-0400 Body temperature 98.24 [degF] DR PRIYANKA FRANCO MD [facility] 09-29-2021 16:20-0400 Diastolic blood pressure 91 mm[Hg] DR PRIYANKA FRANCO MD [facility] 09-29-2021 16:20-0400 Heart rate 80 /min DR PRIYANKA FRANCO MD [facility] 09-29-2021 16:20-0400 Respiratory rate 18 /min DR PRIYANKA FRANCO MD [facility] 09-29-2021 16:20-0400 Systolic blood pressure 189 mm[Hg] DR PRIYANKA FRANCO MD [facility] 09-17-2021 20:16-0400 Body temperature 97.3 [degF] Dr. Daija Morton Work Phone: [facility] Work Phone: 09-17-2021 20:16-0400 Diastolic blood pressure 80 mm[Hg] Dr. Daija Morton Work Phone: [facility] Work Phone: 09-17-2021 20:16-0400 Heart rate 85 /min Dr. Daija Morton Work Phone: [facility] Work Phone: 09-17-2021 20:16-0400 Respiratory rate 17 /min Dr. Daija Morton Work Phone: [facility] Work Phone: 09-17-2021 20:16-0400 SaO2% (BldA) [Mass fraction] 96 % Dr. Daija Morton Work Phone: [facility] Work Phone: 09-17-2021 20:16-0400 Systolic blood pressure 171 mm[Hg] Dr. Daija Morton Work Phone: [facility] Work Phone: 09-17-2021 16:56-0400 Body height 172.[address] Daija Morton Work Phone: [facility] Work Phone: 09-17-2021 16:56-0400 Body mass index (BMI) [Ratio] 23.7 kg/m2 Dr. Daija Morton Work Phone: [facility] Work Phone: 09-17-2021 16:56-0400 Body weight 70.[address] Daija Morton Work Phone: [facility] Work Phone: 09-15-2021 17:40-0400 Diastolic blood pressure 73 mm[Hg] Anjel Older OCCUP THER.LEGAL SERVICES MANAGER Work Phone: [facility] 09-15-2021 17:40-0400 Systolic blood pressure 170 mm[Hg] Anjel Older OCCUP THER.LEGAL SERVICES MANAGER Work Phone: [facility] 09-15-2021 16:57-0400 Body weight 71.22 kg Anjel Older OCCUP THER.LEGAL SERVICES MANAGER Work Phone: [facility] 09-15-2021 16:57-0400 Heart rate 68 /min Anjel Older OCCUP THER.LEGAL SERVICES MANAGER Work Phone: [facility] 09-15-2021 16:57-0400 Respiratory rate 16 /min Anjel Older OCCUP THER.LEGAL SERVICES MANAGER Work Phone: [facility] 09-15-2021 16:18-0400 Body height 172.7 cm Kaye Ortega MD Work Phone: [facility] 09-15-2021 16:18-0400 Body temperature 97.39 [degF] Kaye Ortega MD Work Phone: [facility] 09-15-2021 16:18-0400 Body weight 71.67 kg Kaye Ortega MD Work Phone: [facility] 09-15-2021 16:18-0400 Diastolic blood pressure 72 mm[Hg] Kaye Ortega MD Work Phone: [facility] 09-15-2021 16:18-0400 Heart rate 78 /min Kaye Ortega MD Work Phone: [facility] 09-15-2021 16:18-0400 SaO2% (BldA) [Mass fraction] 96 % Kaye Ortega MD Work Phone: [facility] 09-15-2021 16:18-0400 Systolic blood pressure 138 mm[Hg] Kaye Ortega MD Work Phone: [facility] 08-21-2021 09:30-0500 Body temperature 97.6 [degF] Dr. Daija Morton Work Phone: [facility] Work Phone: 08-21-2021 09:30-0500 Diastolic blood pressure 69 mm[Hg] Dr. Daija Morton Work Phone: [facility] Work Phone: 08-21-2021 09:30-0500 Heart rate 61 /min Dr. Daija Morton Work Phone: [facility] Work Phone: 08-21-2021 09:30-0500 Inhaled oxygen flow rate 3 L/min Dr. Daija Morton Work Phone: [facility] Work Phone: 08-21-2021 09:30-0500 Respiratory rate 18 /min Dr. Daija Morton Work Phone: [facility] Work Phone: 08-21-2021 09:30-0500 SaO2% (BldA) [Mass fraction] 98 % Dr. Daija Morton Work Phone: [facility] Work Phone: 08-21-2021 09:30-0500 Systolic blood pressure 183 mm[Hg] Dr. Daija Morton Work Phone: [facility] Work Phone: 08-21-2021 08:30-0500 Body temperature 97.6 [degF] Dr. Daija Morton Work Phone: [facility] Work Phone: 08-21-2021 08:30-0500 Diastolic blood pressure 69 mm[Hg] Dr. Daija Morton Work Phone: [facility] Work Phone: 08-21-2021 08:30-0500 Heart rate 61 /min Dr. Daija Morton Work Phone: [facility] Work Phone: 08-21-2021 08:30-0500 Respiratory rate 18 /min Dr. Daija Morton Work Phone: [facility] Work Phone: 08-21-2021 08:30-0500 SaO2% (BldA) [Mass fraction] 98 % Dr. Daija Morton Work Phone: [facility] Work Phone: 08-21-2021 08:30-0500 Systolic blood pressure 183 mm[Hg] Dr. Daija Morton Work Phone: [facility] Work Phone: 08-20-2021 06:18-0500 Body mass index (BMI) [Ratio] 23.7 kg/m2 Dr. Daija Morton Work Phone: [facility] Work Phone: 08-20-2021 06:18-0500 Body weight [address] Daija Morton Work Phone: [facility] Work Phone: 08-20-2021 05:18-0500 Body mass index (BMI) [Ratio] 23.7 kg/m2 Dr. Daija Morton Work Phone: [facility] Work Phone: 08-20-2021 05:18-0500 Body weight [address] Daija Morton Work Phone: [facility] Work Phone: 08-12-2021 03:26-0500 Diastolic blood pressure 89 mm[Hg] Dr. Daija Morton Work Phone: [facility] Work Phone: 08-12-2021 03:26-0500 Heart rate 70 /min Dr. Daija Morton Work Phone: [facility] Work Phone: 08-12-2021 03:26-0500 Respiratory rate 18 /min Dr. Daija Morton Work Phone: [facility] Work Phone: 08-12-2021 03:26-0500 SaO2% (BldA) [Mass fraction] 93 % Dr. Daija Morton Work Phone: [facility] Work Phone: 08-12-2021 03:26-0500 Systolic blood pressure 211 mm[Hg] Dr. Daija Morton Work Phone: [facility] Work Phone: 08-11-2021 23:32-0500 Body mass index (BMI) [Ratio] 24.8 kg/m2 Dr. Daija Morton Work Phone: [facility] Work Phone: 08-11-2021 23:32-0500 Body temperature 97.5 [degF] Dr. Daija Morton Work Phone: [facility] Work Phone: 08-11-2021 23:32-0500 Body weight 74.[address] Daija Morton Work Phone: [facility] Work Phone: 06-12-2021 15:55-0500 Diastolic blood pressure 81 mm[Hg] Dr. Daija Morton Work Phone: [facility] Work Phone: 06-12-2021 15:55-0500 Heart rate 61 /min Dr. Daija Morton Work Phone: [facility] Work Phone: 06-12-2021 15:55-0500 Systolic blood pressure 182 mm[Hg] Dr. Daija Morton Work Phone: [facility] Work Phone: 06-12-2021 15:15-0500 Body mass index (BMI) [Ratio] 24.6 kg/m2 Dr. Daija Morton Work Phone: [facility] Work Phone: 06-12-2021 15:15-0500 Body temperature 96.8 [degF] Dr. Daija Morton Work Phone: [facility] Work Phone: 06-12-2021 15:15-0500 Body weight 73.[address] Daija Morton Work Phone: [facility] Work Phone: 06-12-2021 15:15-0500 Respiratory rate 18 /min Dr. Daija Morton Work Phone: [facility] Work Phone: 06-12-2021 15:15-0500 SaO2% (BldA) [Mass fraction] 96 % Dr. Daija Morton Work Phone: [facility] Work Phone: 06-04-2021 23:37-0500 Respiratory rate 18 /min Dr. Daija Morton Work Phone: [facility] Work Phone: 06-04-2021 22:01-0500 Body mass index (BMI) [Ratio] 23.6 kg/m2 Dr. Daija Morton Work Phone: [facility] Work Phone: 06-04-2021 22:01-0500 Body temperature 97.1 [degF] Dr. Daija Morton Work Phone: [facility] Work Phone: 06-04-2021 22:01-0500 Body weight 70.[address] Daija Morton Work Phone: [facility] Work Phone: 06-04-2021 22:01-0500 Diastolic blood pressure 99 mm[Hg] Dr. Daija Morton Work Phone: [facility] Work Phone: 06-04-2021 22:01-0500 Heart rate 87 /min Dr. Daija Morton Work Phone: [facility] Work Phone: 06-04-2021 22:01-0500 SaO2% (BldA) [Mass fraction] 97 % Dr. Daija Morton Work Phone: [facility] Work Phone: 06-04-2021 22:01-0500 Systolic blood pressure 202 mm[Hg] Dr. Daija Morton Work Phone: [facility] Work Phone: Encounters Encounter Date Encounter Type Care Provider Facility Start: 03-18-2025 End: 03-18-2025 Emergency department patient visit MAGDALENE POWELL DO [facility] Start: 03-14-2025 End: 03-14-2025 ambulatory Efewongbe Suzye [place] [place] Start: 03-14-2025 End: 03-14-2025 Emergency department patient visit Efroewoodlandbe Suzye Facility:[facility] Start: 03-13-2025 End: 03-13-2025 ambulatory [facility] STAGE [facility]DER [place] [place] Start: 03-11-2025 ambulatory Efewongbe Oleghe OLS Fa cility:[facility] Start: 03-04-2025 ambulatory Efewongbe Oleghe Facili ty:[facility] Start: 02-25-2025 ambulatory Efewongbe Oleghe OLS Fa cility:[facility] Start: 02-24-2025 End: 02-24-2025 ambulatory [facility] STAGE BU[employer]DER [place] [place] Start: 02-18-2025 ambulatory Efewongbe Oleghe OLS Fa cility:[facility] Start: 02-18-2025 Lorraine Johns Start: 02-11-2025 ambulatory Efewongbe Oleghe OLS Fa cility:[facility] Start: 02-11-2025 Lorraine Johns Start: 02-09-2025 ambulatory Efewongbe Oleghe OLS Fa cility:[facility] Start: 02-09-2025 Lorraine Johns Start: 02-04-2025 End: 02-04-[address] Daija Morton MD Work Phone: [facility] Start: 02-04-2025 End: 02-04-2025 Josefa Doss STAGE BUILDER-[facility] -[facility] Work Phone: Start: 02-03-2025 ambulatory Lorraine RAIN Fa cility:[facility] Start: 02-03-2025 Lorraine Johns Start: 01-27-2025 ambulatory Efml Mena OLS Fa cility:[facility] Start: 01-27-2025 Lorraine Johns Start: 01-23-2025 End: 01-23-2025 Hannah Busch NP-[place] [facility] Work Phone: Start: 01-23-2025 End: 01-23-[address] Daija Morton MD Work Phone: [facility] Neurology Start: 01-21-2025 End: 01-21-2025 Mackenzie SALDIVAR -[facility] Work Phone: Start: 01-21-2025 End: 01-21-[address] Daija Morton MD Work Phone: [facility] Vascular Surgery Start: 01-20-2025 ambulatory Lorraine Almonteemi RAIN Fa cility:[facility] Start: 01-20-2025 Lorraine Johns Start: 01-17-2025 End: 01-17-2025 Refill Daija Morton MD Work Phone: [facility] [place] Comment on above: Refill Request Start: 01-13-2025 ambulatory Roselynlorri RAIN Fa cility:[facility] Start: 01-13-2025 Lorraine Johns Start: 01-09-2025 End: 01-09-[address] Daija Morton MD Work Phone: [facility] Start: 01-09-2025 End: 01-09-2025 Josefa Doss STAGE BUILDERNeshaC -[facility] Work Phone: Start: 01-08-2025 Dr. Ryan zazueta DO -[facility] Work Phone: Start: 01-07-2025 Dr. Ryan zazueta DO -[facility] Work Phone: Start: 01-07-2025 Paulino Friend DO -[facility] Start: 01-06-2025 ambulatory Efewongbe Olebandare Facili ty:[facility] Start: 01-06-2025 Paulino Friend DO -[facility] Start: 01-05-2025 End: 01-05-2025 ambulatory Efewongbe Oleghe Facility:[facility] Start: 01-05-2025 End: 01-05-2025 Dr. Geronimo Downey MD -[facility] Work Phone: Start: 01-05-2025 Paulino [place] DO -[facility] Start: 01-05-2025 End: 01-08-2025 ambulatory Ryan [...] ambulatory Dr. Daija Morton MD Work Phone: -[facility] Start: 12-31-2024 End: 12-31-2024 Dr. Lorraine Mena MD -[facility] Work Phone: Start: 12-31-2024 ambulatory Efml Mena OLS Fa cility:[facility] Start: 12-31-2024 Lorraine Jeffries Daisha Johns Start: 12-30-2024 ambulatory Efewlorri Mena OLS Fa cility:[facility] Start: 12-30-2024 Lorraine Jeffries Daisha Johns Start: 12-27-2024 End: 12-27-[address] Daija Morton MD Work Phone: -[facility] Start: 12-27-2024 End: 12-27-2024 Josefa CORTEZ -[facility] Work Phone: Start: 12-26-2024 End: 12-26-2024 Follow-up encounter Anjel Braga APRN.CNP Work Phone: [facility] Start: 12-26-2024 Dr. Shilpa edwards MD -[facility] Work Phone: Start: 12-25-2024 Dr. Shilap edwards MD -[facility] Work Phone: Start: 12-24-2024 Paulino Henderson [facility] Start: 12-24-2024 Dr. Shilpa edwards MD -[facility] Work Phone: Start: 12-23-2024 Paulino [facility] Start: 12-23-2024 ambulatory Daija Selene Facility:[facility] Start: 12-23-2024 Dr. Raul Jensen MD -[facility] Start: 12-23-2024 Dr. Shilpa edwards MD -[facility] Work Phone: Start: 12-22-2024 Dr. Lisha Talamantes DO -[facility] Work Phone: Start: 12-21-2024 [facility] Work Phone: Start: 12-20-2024 Dr. Lisha Talamantes DO -[facility] Work Phone: Start: 12-19-2024 Dr. Lisha Talamantes DO -[facility] Work Phone: Start: 12-18-2024 ambulatory Daija Ganhuan [facility] Start: 12-18-2024 End: 12-26-2024 Evaluation and management of inpatient Dr. Daija Morton MD Work Phone: -Pro[facility] Care Unit Start: 12-18-2024 End: 12-26-2024 Dr. Shilpa Contreras MD -[facility] Work Phone: Start: 12-18-2024 [facility] Start: 12-18-2024 Dr. Milton Guajardo MD -[facility] Start: 12-17-[address] Germain Morton MD Work Phone: -[facility] Start: 12-17-2024 Dr. Roman Patel DO -[facility] Work Phone: Start: 12-17-2024 End: 12-20-2024 ambulatory Daija Morton MD Work Phone: Internal Medicine [place] [phone] Start: 12-17-2024 End: 12-24-2024 Telephone encounter Daija Morton MD Work Phone: [facility] [place] Comment on above: Patient Update Start: 12-16-2024 End: 12-17-2024 Refill Daija Morton MD Work Phone: [facility] [place] Comment on above: Refill Request SOB (shortness [...] [facility] Comment on above: Refill Request Orders Michaelare requesting r ecords Start: 12-12-2024 End: 12-12-2024 Subsequent hospital visit by physician Xr [facility] [place] Work Phone: Radiology Comment on above: Wheezing [R06.2] Start: 12-12-2024 End: 12-12-2024 ambulatory ANJEL RBAGA Facility:[facility] Start: 12-12-2024 End: 12-12-2024 Office outpatient visit 25 minutes Anjel Braga APRN.CNP Work Phone: [facility] [place] Comment on above: Other emphysema (HCC ) (Primary Dx); Smoker; Wheezing; Lower abdominal tenderness; Loose stools; On home oxygen therapy; Primary hypertension; Left leg pain; Falls; Weakness Start: 12-12-2024 End: 12-12-2024 ambulatory DAIJA MORTON Facility:[facility] Start: 12-09-2024 End: 12-09-2024 Telephone encounter Daija Morton MD Work Phone: [facility] [place] Comment on above: Home Care Management ; Patient Update Start: 12-06-2024 End: 12-06-2024 Telephone encounter Daija Morton MD Work Phone: [facility] [place] Comment on above: [facility] T[facility] rs update Start: 12-03-2024 End: 12-04-2024 Telephone encounter Daija Morton MD Work Phone: [facility] [place] Comment on above: Home Health Orders Start: 12-02-2024 ambulatory Daija Morton Facility:[facility] Start: 12-02-[address] Carla Crane MD [facility] Start: 12-02-2024 Dr. Carla Crane MD [facility] Start: 11-05-2024 End: 11-05-[address] Daija Morton MD Work Phone: [facility] Work Phone: Start: 11-05-2024 End: 11-05-[address] Carla Crane MD [facility] Start: 11-05-2024 End: 11-05-2024 Dr. Carla Crane MD [facility] Start: 11-05-2024 End: 11-05-2024 ambulatory Carla RAIN Facility:[facility] Start: 10-16-2024 ambulatory Carla RAIN Facili ty:[facility] Start: 10-16-[address] Carla Crane MD [facility] Start: 10-16-2024 Dr. Carla Crane MD [facility] Start: 09-02-2024 Non-patient / Non-visit Dr. Brody Maynard MD -[facility] Work Phone: Start: 09-02-2024 Dr. Brody Maynard MD -[facility] Work Phone: Start: 09-01-2024 Non-patient / Non-visit Dr. Celia rapp MD [facility] Work Phone: Start: 09-01-2024 Dr. Celia Toribio MD [facility] Work Phone: Start: 08-31-2024 Non-patient / Non-visit Dr. Celia rapp MD [facility] Work Phone: Start: 08-31-2024 Dr. Celia Toribio MD [facility] Work Phone: Start: 08-30-2024 Non-patient / Non-visit Dr. Celia Nam [facility] Work Phone: Start: 08-30-2024 Dr. Celia [facility] Work Phone: Start: 08-29-2024 Non-patient / Non-visit Dr. Celia rapp MD [facility] Work Phone: Start: 08-29-2024 Dr. Celia Toribio MD [facility] eriberto In[facility] Work Phone: Start: 08-28-2024 Non-patient / Non-visit Dr. Celia rapp MD [facility] Work Phone: Start: 08-28-2024 Dr. Celia You er[facility] Work Phone: Start: 08-27-2024 ambulatory Lisha Talamantes [facility] Start: 08-27-2024 End: 09-02-2024 Evaluation and management of inpatient Dr. Brody Maynard MD -[facility] 3 Work Phone: Start: 08-27-2024 End: 09-02-2024 Dr. Brody Maynard MD -[facility] Work Phone: Start: 08-27-2024 Non-patient / Non-visit Dr. Celia rapp MD [facility] Work Phone: Start: 08-27-2024 [facility] Start: 08-26-2024 Non-patient / Non-visit Dr. Celia rapp MD [facility] Work Phone: Start: 08-26-2024 Dr. [facility] Work Phone: Start: 08-25-2024 Non-patient / Non-visit Dr. Lisha Talamantes DO [facility]icians Work Phone: Start: 08-25-2024 Dr. Lisha Talamantes DO [facility] Work Phone: Start: 08-25-2024 ambulatory Lisha Talamantes Facility:[facility] Start: 08-25-2024 Evaluation and management of inpatient Dr. Lisha Talamantes DO -[facility] 3 Work Phone: Start: 08-25-[address] Germain Morton MD Work Phone: [facility] Work Phone: Start: 07-15-2024 ambulatory Carla RAIN Facili ty:[facility] Start: 07-15-[address] Carla Crane MD -[facility] Start: 05-17-2024 End: 05-17-2024 Telephone encounter Daija Morton MD Work Phone: [facility] [place] Comment on above: Patient Update Start: 04-29-2024 End: 05-14-2024 Telephone encounter Daija Morton MD Work Phone: [facility] [place] Comment on above: Patient Update Start: 04-04-2024 End: 04-24-2024 Telephone encounter Daija Morton MD Work Phone: [facility] [place] Comment on above: Patient Update Start: 03-31-2024 End: 04-04-2024 Telephone encounter Sera SALDIVAR Work Phone: [facility] Comment on above: Results Start: 03-25-2024 End: 03-25-2024 Telephone encounter Sera SALDIVAR Work Phone: [facility] Comment on above: Results Start: 03-23-2024 End: 03-23-2024 Patient encounter procedure Pura Carter APRN.CNP Work Phone: [facility] Comment on above: Uncontrolled hyperte nsion (Primary Dx); Dysuria; Urinary tract infection without hematuria, site unspecified Start: 03-12-2024 End: 03-12-2024 Refill Daija Morton MD Work Phone: [facility] [place] Comment on above: Refill Request Start: 01-23-2024 Refill Daija Damon Work Phone: [facility] [place] Comment on above: Refill Request Start: 01-02-2024 Orders Only Ryan May MD Work Phone: Vascular Surgery Comment on above: Peripheral arterial disease (HCC) (Primary Dx) Start: 01-01-2024 Telephone encounter Daija pressley MD Work Phone: [facility] [place] Comment on above: No Show Start: 12-22-2023 Telephone encounter Daija pressley MD Work Phone: [facility] [place] Comment on above: Mental status change Start: 12-08-2023 Telephone encounter Daija pressley MD Work Phone: [facility] [place] Comment on above: Patient Update Start: 11-21-2023 [...] Daija pressley MD Work Phone: [facility] [place] Comment on above: Future Appointment Start: 11-17-2023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 Start: 12-22-2024 Electroencephalogram [facility] Start: 12-19-2024 Referral to gastroenterology service [facility] Start: 12-18-2024 Admission procedure [facility] Start: 12-18-2024 Contact precautions [facility] Start: 12-18-2024 Inhalation therapy procedure [facility] Start: 12-17-2024 Following clinical pathway protocol [facility] Start: 12-17-2024 Application of intermittent pneumatic compression device [facility] Start: 12-17-2024 Aspiration precautions [facility] Start: 12-17-2024 Assessment of risk of venous thromboembolism [facility] Start: 12-17-2024 Cardiac monitoring [facility] Start: 12-17-2024 Catheterization of vein [facility] Start: 12-17-2024 Consultation [facility] Start: 12-17-2024 Elevation of head of bed [facility] Start: 12-17-2024 Exercises [facility] Start: 12-17-2024 Insertion of catheter into peripheral vein [facility] Start: 12-17-2024 Notification of physician [facility] Start: 12-17-2024 Oxygen therapy [facility] Start: 12-17-2024 Patient referral to dietitian [facility] Start: 12-17-2024 Providing care according to standard [facility] Start: 12-17-2024 Referral to occupational therapist [facility] Start: 12-17-2024 Referral to service [facility] Start: 12-17-2024 Speech therapy assessment [facility] Start: 12-17-2024 Tobacco use cessation education [facility] Start: 12-17-2024 Vital signs measurements [facility] Start: 12-17-2024 End: 12-17-2024 [facility] Start: 12-17-2024 MRI of brain without contrast [facility] Start: 12-17-2024 Verification routine [facility] Start: 12-17-2024 Admission procedure [facility] Start: 12-17-2024 Hospital admission, emergency, from emergency room, medical nature [facility] Start: 12-17-2024 Partial thromboplastin time, activated [facility] Start: 12-17-2024 Prothrombin time [facility] Start: 12-17-2024 Thyroid stimulating hormone measurement [facility] Start: 12-17-2024 Oxygen therapy [facility] Start: 12-17-2024 End: 12-18-2024 [facility] Start: 12-17-2024 End: 03-18-2025 Hemoglobin A1c in Blood HEMOGLOBIN A1C Lab Routine Medication management Expected: 12/17/2024, Expires: 03/18/2025 [facility] Work Phone: Comment on above: Expected: 12/17/2024, Expires: Start: 12-17-2024 End: 03-18-2025 Lipid 1996 panel - Serum or Plasma LIPID PANEL, FASTING Lab Routine Hyperlipidemia Expected: 12/17/2024, Expires: 03/18/2025 [facility] Comment on above: Expected: 12/17/2024, Expires: Start: 12-17-2024 Consultation [facility] Start: 12-16-2024 Referral to service [facility] Start: 12-16-2024 Patient discharge [facility] Start: 12-14-2024 Referral to occupational therapist [facility] Start: 12-14-2024 Referral to service [facility] Start: 12-13-2024 Contact precautions [facility] Start: 12-13-2024 Following clinical pathway protocol [facility] Start: 12-13-2024 Assessment of risk of venous thromboembolism [facility] Start: 12-13-2024 Continuous pulse oximetry [facility] Start: 12-13-2024 Inhalation therapy procedure [facility] Start: 12-13-2024 Insertion of catheter into peripheral vein [facility] Start: 12-13-2024 Introduction of urinary catheter [facility] Start: 12-13-2024 Measuring intake and output [facility] Start: 12-13-2024 Oxygen therapy [facility] Start: 12-13-2024 Providing care according to standard [facility] Start: 12-13-2024 Provision of activity privileges [facility] Start: 12-13-2024 Tobacco use cessation education [facility] Start: 12-13-2024 End: 12-13-2024 [facility] Start: 12-13-2024 Dual pressure spontaneous ventilation support [facility] Start: 12-13-2024 Verification routine [facility] Start: 12-13-2024 Admission procedure [facility] Start: 12-13-2024 Hospital admission, emergency, from emergency room, medical nature [facility] Start: 12-13-2024 [facility] Start: 12-13-2024 Bacteria identified in Blood by Culture Blood Culture [facility] Start: 12-13-2024 Blood culture [facility] Start: 12-13-2024 Respiratory Panel (PCR) Respiratory Panel (PCR) [facility] Start: 12-13-2024 Consultation [facility] Start: 12-13-2024 Patient referral to dietitian [facility] Start: 12-12-2024 End: 03-13-2025 Comprehensive metabolic 2000 panel - Serum or Plasma [facility] Comment on above: Expected: 12/12/2024, Expires: Start: 12-12-2024 End: 03-13-2025 Urinalysis complete panel - Urine [facility] Work Phone: Comment on above: Expected: 12/12/2024, Expires: Start: 12-12-2024 End: 12-12-2024 [facility] encounter procedure [facility] Comment on above: Discharge from Nursing facility - Follow up Discharge from [facility] facility -see phone note 12/09 Start: 11-20-2024 Annual PCP Team Chronic Disease Visit Annual PCP Team Chronic Disease Visit [facility] Start: 09-03-2024 DIABETES SCREEN DIABETES SCREEN [facility] Start: 09-02-2024 Patient discharge [facility] Start: 09-01-2024 [facility] Start: 08-30-2024 Incentive spirometry [facility] Start: 08-29-2024 Consultation [facility] Start: 08-29-2024 Contact precautions [facility] Start: 08-27-2024 Application of intermittent pneumatic compression device [facility] Start: 08-27-2024 Admission procedure [facility] Start: 08-27-2024 Urine culture Urine Culture [facility] Start: 08-27-2024 [facility] Start: 08-27-2024 Oxygen therapy [facility] Start: 08-25-2024 Following clinical pathway protocol [facility] Start: 08-25-2024 Assessment of risk of venous thromboembolism [facility] Start: 08-25-2024 Inhalation therapy procedure [facility] Start: 08-25-2024 Insertion of catheter into peripheral vein [facility] Start: 08-25-2024 Measuring intake and output [facility] Start: 08-25-2024 Patient referral to dietitian [facility] Start: 08-25-2024 Providing care according to standard [facility] Start: 08-25-2024 Provision of activity privileges [facility] Start: 08-25-2024 Referral to occupational therapist [facility] Start: 08-25-2024 Referral to service [facility] Start: 08-25-2024 [facility] Start: 08-25-2024 Verification routine [facility] Start: 08-25-2024 Hospital admission, emergency, from emergency room, medical nature [facility] Start: 08-25-2024 Admission procedure [facility] Start: 08-25-2024 Enteric precautions [facility] Start: 08-25-2024 End: 08-26-2024 [facility] Start: 08-25-2024 Consultation [facility] Start: 06-19-2024 Advance Directive Discussion Advance Directive Discussion [facility] Start: 06-19-2024 Medicare Advantage Annual Wellness Visit Medicare Advantage Annual Wellness Visit [facility] Start: 06-08-2024 Annual PCP Team Chronic Disease Visit Annual PCP Team Chronic Disease Visit [facility] Start: 06-08-2024 BP Controlled (<130/80) BP Controlled (<130/80) [facility] Start: 2024 RSV Vaccine (1 - 1-dose 75+ series) RSV Vaccine (1 - 1-dose 75+ series) [facility] Start: 03-19-2024 Lipid 1996 panel - Serum or Plasma Lipid Screening [facility] Start: 03-19-2024 Lipid panel Lipid Screening [facility] Start: 03-19-2024 LIPID SCREEN LIPID SCREEN [facility] Start: 02-18-2024 Covid-19 Vaccine ( season) Covid-19 Vaccine () [facility] Start: 02-18-2024 Influenza vaccination Influenza Vaccine (#1) [facility] Start: 01-02-2024 End: 01-02-2024 Patient encounter procedure Vascular Lab Comment on above: PVD FOLLOW UP Start: 01-01-2024 End: 01-01-2024 Patient encounter procedure 01/01/2024 9:20 AM EDT Office Visit [facility] [address] [place] [address] Daija Morton MD [address] [place] [address] 4-6 wk follow up [facility] Comment on above: 4-6 wk follow up Start: 11-21-2023 End: 02-20-2024 CBC W Auto Differential panel - Blood COMPLETE BLOOD COUNT AND DIFFERENTIAL Lab Routine COPD with chronic bronchitis (HCC) Expected: 11/21/2023, Expires: 02/20/2024 [facility] Comment on above: Expected: 11/21/2023, Expires: Start: 11-21-2023 End: 02-20-2024 Comprehensive metabolic 2000 panel - Serum or Plasma COMPREHENSIVE METABOLIC PANEL Lab Routine Mixed hyperlipidemia Expected: 11/21/2023, Expires: 02/20/2024 [facility] Comment on above: Expected: 11/21/2023, Expires: Start: 11-21-2023 End: 02-20-2024 Hemoglobin A1c in Blood HEMOGLOBIN A1C Lab Routine Mixed hyperlipidemia Expected: 11/21/2023, Expires: 02/20/2024 [facility] Work Phone: Comment on above: Expected: 11/21/2023, Expires: Start: 11-21-2023 End: 02-20-2024 Lipid 1996 panel - Serum or Plasma LIPID PANEL BASIC Lab Routine Mixed hyperlipidemia Expected: 11/21/2023, Expires: 02/20/2024 [facility] Comment on above: Expected: 11/21/2023, Expires: Start: 11-21-2023 End: 11-21-2023 Patient encounter procedure [facility] Comment on above: hospital discharge/ senior care fractur e of pelvic hospital discharge/ senior care fracture of pelvic(See phone encounter) Start: 11-21-2023 End: 11-21-2023 Patient encounter procedure 11/21/2023 9:40 AM EDT Office Visit [facility] [address] [place] [address] Rebekah Luu PA-C [address] [place] [address] follow up care home / copd [facility] Comment on above: follow up care home / copd Start: 08-28-2023 ANNUAL PCP TEAM CHRONIC DISEASE VISIT ANNUAL PCP TEAM CHRONIC DISEASE VISIT [facility] Start: 08-02-2023 Patient discharge [facility] Start: 08-01-2023 Referral to occupational therapist [facility] Start: 08-01-2023 Referral to service [facility] Start: 07-31-2023 Speech therapy assessment [facility] Start: 07-31-2023 Oxygen therapy [facility] Start: 07-31-2023 Respiratory secretion precautions [facility] Start: 07-31-2023 Following clinical pathway protocol [facility] Start: 07-31-2023 Continuous pulse oximetry [facility] Start: 07-31-2023 Physiotherapy of chest [facility] Start: 07-31-2023 Hospital admission, emergency, from emergency room, medical nature [facility] Start: 07-31-2023 Inhalation therapy procedure [facility] Start: 07-30-2023 Dual pressure spontaneous ventilation support [facility] Start: 07-30-2023 Admission procedure [facility] Start: 07-30-2023 [facility] Start: 07-26-2023 Patient discharge [facility] Start: 07-25-2023 Referral to occupational therapist [facility] Start: 07-25-2023 Referral to service [facility] Start: 07-25-2023 Inhalation therapy procedure [facility] Start: 07-24-2023 Following clinical pathway protocol [facility] Start: 07-24-2023 Assessment of risk of venous thromboembolism [facility] Start: 07-24-2023 Insertion of catheter into peripheral vein [facility] Start: 07-24-2023 Oxygen therapy [facility] Start: 07-24-2023 Providing care according to standard [facility] Start: 07-24-2023 Referral to service [facility] Start: 07-24-2023 [facility] Start: 07-24-2023 Verification routine [facility] Start: 07-24-2023 Admission procedure [facility] Start: 07-24-2023 Hospital admission, emergency, from emergency room, medical nature [facility] Start: 07-24-2023 Consultation [facility] Start: 07-24-2023 Consultation [facility] Start: 07-24-2023 Patient referral to dietitian [facility] Start: 06-19-2023 Advance Directive Discussion Advance Directive Discussion [facility] Start: 04-04-2023 Patient discharge [facility] Start: 04-03-2023 Consultation [facility] Start: 04-02-2023 Contact precautions [facility] Start: 03-30-2023 End: 03-30-2023 Following clinical pathway protocol [facility] Start: 03-30-2023 Assessment of risk of venous thromboembolism [facility] Start: 03-30-2023 Catheterization of vein [facility] Start: 03-30-2023 Inhalation therapy procedure [facility] Start: 03-30-2023 Insertion of catheter into peripheral vein [facility] Start: 03-30-2023 Oxygen therapy [facility] Start: 03-30-2023 Providing care according to standard [facility] Start: 03-30-2023 Provision of activity privileges [facility] Start: 03-30-2023 Referral to occupational therapist [facility] Start: 03-30-2023 Referral to service [facility] Start: 03-30-2023 End: 03-30-2023 [facility] Start: 03-30-2023 End: 03-30-2023 Blood culture [facility] Start: 03-30-2023 Verification routine [facility] Start: 03-30-2023 Hospital admission, emergency, from emergency room, medical nature [facility] Start: 03-30-2023 Admission procedure [facility] Start: 03-30-2023 Bacteria identified in Blood by Culture Blood Culture [facility] Start: 03-30-2023 Consultation [facility] Start: 03-30-2023 Inhalation therapy procedure [facility] Start: 03-29-2023 [facility] Start: 03-29-2023 Emergency department visit low/moder severity EMERGENCY DEPT VISIT SF MDM [facility] Start: 03-10-2023 ANNUAL PCP TEAM CHRONIC DISEASE VISIT ANNUAL PCP TEAM CHRONIC DISEASE VISIT [facility] Start: 02-17-2023 Covid-19 Vaccine () Covid-19 Vaccine () [facility] Start: 02-17-2023 Influenza vaccination [facility] Start: 02-04-2023 ANNUAL PCP TEAM CHRONIC DISEASE VISIT ANNUAL PCP TEAM CHRONIC DISEASE VISIT [facility] Start: 01-28-2023 ANNUAL PCP TEAM CHRONIC DISEASE VISIT ANNUAL PCP TEAM CHRONIC DISEASE VISIT [facility] Start: 01-14-2023 SHINGRIX VACCINE (2 of 3) SHINGRIX VACCINE (2 of 3) [facility] Comment on above: Postponed from 11/19/2020 (Declined at t his time) Start: 01-03-2023 Urine microalbumin profile DTAP,TDAP,TD (2 - Td or Tdap) [facility] Start: 11-17-2022 ANNUAL PCP TEAM CHRONIC DISEASE VISIT ANNUAL PCP TEAM CHRONIC DISEASE VISIT [facility] Start: 10-26-2022 COVID-19 VACCINE (4 - Moderna series) COVID-19 VACCINE (4 - Moderna series) [facility] Start: 10-21-2022 [facility] Start: 10-07-2022 ANNUAL PCP TEAM CHRONIC DISEASE VISIT ANNUAL PCP TEAM CHRONIC DISEASE VISIT [facility] Start: 09-15-2022 ANNUAL PCP TEAM CHRONIC DISEASE VISIT ANNUAL PCP TEAM CHRONIC DISEASE VISIT [facility] Start: 06-19-2022 ADVANCE DIRECTIVE DISCUSSION ADVANCE DIRECTIVE DISCUSSION [facility] Start: 04-02-2022 ANNUAL PCP TEAM CHRONIC DISEASE VISIT ANNUAL PCP TEAM CHRONIC DISEASE VISIT [facility] Start: 03-29-2022 End: 05-29-2022 Hemoglobin A1c in Blood HGB A1C Lab Routine Medication management Expected: 03/29/2022, Expires: 05/29/2022 [facility] Work Phone: Comment on above: Expected: 03/29/2022, Expires: 2 Start: 03-29-2022 End: 05-29-2022 Lipid 1996 panel - Serum or Plasma LIPID PANEL BASIC Lab Routine Hyperlipidemia Expected: 03/29/2022, Expires: 05/29/2022 [facility] Work Phone: Comment on above: Expected: 03/29/2022, Expires: 2 Start: 03-29-2022 End: 05-29-2022 SCHEDULE LAB TESTING SCHEDULE LAB TESTING Lab Routine Expected: 03/29/2022, Expires: 05/29/2022 [facility] Work Phone: Comment on above: Expected: 03/29/2022, Expires: 2 Start: 02-17-2022 Influenza vaccination INFLUENZA (#1) [facility] Start: 01-14-2022 End: 03-16-2022 CBC W Auto Differential panel - Blood [facility] Work Phone: Comment on above: Expected: 01/14/2022, Expires: 2 Start: 11-30-2021 Patient discharge [facility] Work Phone: Start: 11-28-2021 Care planning and problem solving actions [facility] Work Phone: Start: 11-26-2021 Administration of blood product [facility] Work Phone: Start: 11-26-2021 Catheterization of vein [facility] Work Phone: Start: 11-26-2021 Notification of physician [facility] Work Phone: Start: 11-26-2021 Referral to occupational therapist [facility] Work Phone: Start: 11-26-2021 End: 11-26-2021 Referral to service [facility] Work Phone: Start: 11-26-2021 Catheterization of vein [facility] Work Phone: Start: 11-26-2021 Following clinical pathway protocol [facility] Work Phone: Start: 11-26-2021 Inhalation therapy procedure [facility] Work Phone: Start: 11-25-2021 Assessment of risk of venous thromboembolism [facility] Work Phone: Start: 11-25-2021 Insertion of catheter into peripheral vein [facility] Work Phone: Start: 11-25-2021 Measuring intake and output [facility] Work Phone: Start: 11-25-2021 Oxygen therapy [facility] Work Phone: Start: 11-25-2021 Providing care according to standard [facility] Work Phone: Start: 11-25-2021 Provision of activity privileges [facility] Work Phone: Start: 11-25-2021 Referral to gastroenterology service [facility] Work Phone: Start: 11-25-2021 [facility] Work Phone: Start: 11-25-2021 Admission procedure [facility] Work Phone: Start: 11-25-2021 End: 11-25-2021 Administration of blood product [facility] Work Phone: Start: 11-25-2021 Patient referral to dietitian [facility] Work Phone: Start: 10-23-2021 End: 12-23-2021 PT panel - Platelet poor plasma by Coagulation assay PROTHROMBIN TIME/PT Lab Routine Anticoagulation goal of INR 2 to 3 Expected: 10/23/2021, Expires: 12/23/2021 [facility] Work Phone: Comment on above: Expected: 10/23/2021, Expires: Start: 10-19-2021 End: 12-19-2021 Hemoglobin A1c/Hemoglobin.total in Blood HGB A1C Lab Routine Medication management Expected: 10/19/2021, Expires: 12/19/2021 [facility] Work Phone: Comment on above: Expected: 10/19/2021, Expires: 2 Start: 10-19-2021 End: 12-19-2021 LIPID PANEL BASIC LIPID PANEL BASIC Lab Routine Hyperlipidemia Expected: 10/19/2021, Expires: 12/19/2021 [facility] Work Phone: Comment on above: Expected: 10/19/2021, Expires: 2 Start: 10-19-2021 End: 12-19-2021 SCHEDULE LAB TESTING SCHEDULE LAB TESTING Lab Routine Expected: 10/19/2021, Expires: 12/19/2021 [facility] Work Phone: Comment on above: Expected: 10/19/2021, Expires: 2 Start: 10-17-2021 Colonoscopy COLONOSCOPY [facility] Start: 10-17-2021 COLORECTAL CANCER SCREENING COLORECTAL CANCER SCREENING [facility] Start: 09-22-2021 End: 11-22-2021 CBC W Auto Differential panel - Blood CBC + DIFF Lab Routine Anemia, unspecified type Expected: 09/22/2021, Expires: 11/22/2021 [facility] Work Phone: Comment on above: Expected: 09/22/2021, Expires: 2 Start: 09-22-2021 End: 11-22-2021 PT panel - Platelet poor plasma by Coagulation assay PROTHROMBIN TIME/PT Lab Routine Encounter for monitoring Coumadin therapy Expected: 09/22/2021, Expires: 11/22/2021 [facility] Work Phone: Comment on above: Expected: 09/22/2021, Expires: 2 Start: 08-21-2021 Patient discharge [facility] Work Phone: Start: 08-19-2021 Application of intermittent pneumatic compression device [facility] Work Phone: Start: 08-19-2021 Oxygen therapy [facility] Work Phone: Start: 08-19-2021 Tobacco use cessation education [facility] Work Phone: Start: 08-19-2021 [facility] Work Phone: Start: 08-19-2021 Care planning and problem solving actions [facility] Work Phone: Start: 08-19-2021 Administration of blood product [facility] Work Phone: Start: 08-19-2021 Referral to associate field service engineer [facility] Work Phone: Start: 08-19-2021 [facility] Work Phone: Start: 08-19-2021 Referral to occupational therapist [facility] Work Phone: Start: 08-19-2021 Referral to service [facility] Work Phone: Start: 08-19-2021 Application of intermittent pneumatic compression device [facility] Work Phone: Start: 08-19-2021 Administration of blood product [facility] Work Phone: Start: 08-19-2021 Administration of blood product [facility] Work Phone: Start: 08-19-2021 Inhalation therapy procedure [facility] Work Phone: Start: 08-18-2021 Following clinical pathway protocol [facility] Work Phone: Start: 08-18-2021 Ambulation without limitation [facility] Work Phone: Start: 08-18-2021 Assessment of risk of venous thromboembolism [facility] Work Phone: Start: 08-18-2021 Insertion of catheter into peripheral vein [facility] Work Phone: Start: 08-18-2021 Providing care according to standard [facility] Work Phone: Start: 08-18-2021 [facility] Work Phone: Start: 08-18-2021 Admission procedure [facility] Work Phone: Start: 06-19-2021 ADVANCE DIRECTIVE DISCUSSION ADVANCE DIRECTIVE DISCUSSION [facility] Start: 06-04-2021 Smpl repair scalp/neck/ax/genit/trunk 2.6-7.5cm RPR S/N/AX/GEN/TRNK2.6-7.5C M [facility] Work Phone: Start: 11-19-2020 SHINGRIX VACCINE (2 of 3) SHINGRIX VACCINE (2 of 3) [facility] Start: 11-05-2020 COVID-19 VACCINE (2 - Moderna 3-dose series) COVID-19 VACCINE (2 - Moderna 3-dose series) [facility] Start: 11-05-2020 COVID-19 VACCINE (2 - Moderna series) COVID-19 VACCINE (2 - Moderna series) [facility] Start: 03-19-2020 Hepatitis B surface antibody level LDL CHOLESTEROL [facility] Start: 11-15-2015 FECAL OCCULT BLOOD FECAL OCCULT BLOOD [facility] Start: 11-15-2015 Screening for malignant neoplasm of colon Fecal Occult Blood [facility] Start: 01-17-2014 Medicare Annual Wellness Visit Medicare Annual Wellness Visit [facility] Start: 2009 RSV Vaccine (1 - 1-dose 60+ series) RSV Vaccine (1 - 1-dose 60+ series) [facility] Start: 2009 RSV Vaccine (1 - Risk 60-74 years 1-dose series) RSV Vaccine (1 - Risk 60-74 years 1-dose series) [facility] Start: 1999 Influenza vaccination LUNG CANCER SCREENING [facility] Start: 1999 Screening for malignant neoplasm of lung Lung Cancer Screening [facility] Start: 1999 SHINGRIX VACCINE (1 of 2) SHINGRIX VACCINE (1 of 2) [facility] Start: 1994 COLOGUARD (FIT-DNA) COLOGUARD (FIT-DNA) [facility] Start: [address] COLONOGRAPHY [facility] Start: 1994 Screening for malignant neoplasm of colon [facility] Start: 1994 SIGMOIDOSCOPY SIGMOIDOSCOPY [facility] Start: 1979 Zoledronic acid therapy ALPHA-1 ANTITRYPSIN DEFICIENCY SCREENING [facility] Start: 1967 BP CONTROLLED (<130/80) BP CONTROLLED (<130/80) [facility] inic Bacteria identified in Urine by Culture URINE CULTURE Microbiology Routine Dysuria Ordered: 09/15/2021 [facility] Work Phone: Comment on above: Ordered: 09/15/2021 Bacteria identified in Urine by Culture Urine Culture [facility] Bacteria identified in Urine by Culture URINE CULTURE Microbiology Routine Dysuria 03/23/2024 2:06 PM EDT [facility] Work Phone: Blood ammonia measurement [facility] carBAMazepine [Mass/ volume] in Serum or Plasma [facility] Clostridioides diffi cile DNA [Presence] in Unspecified specimen by ALEENA with probe detection [facility] End: 01-28-2023 ECG COMPLETE ECG COMPLETE ECG Routine Essential hypertension Chest pain, unspecified type 1 Occurrences starting 01/28/2022 until 01/28/2023 [facility] Work Phone: Comment on above: 1 Occurrences starting 01/28/2022 until 01/28/2023 Hemoglobin A1c/Hemoglobin.total in Blood [facility] Hemoglobin.gastroint estinal. lower [Presence] in Stool by Immunoassay FECAL OCCULT BLOOD TEST Lab Routine Acute blood loss anemia Angiodysplasia of colon with hemorrhage Ordered: 01/14/2022 [facility] Work Phone: Comment on above: Ordered: 01/14/2022 INR in Blood by Coag ulation assay [facility] Lactic acid measurement [facility] End: 12-05-2022 LUNG DIFFUSION CAPACITY (DLCO) LUNG DIFFUSION CAPACITY (DLCO) PFT Routine COPD with chronic bronchitis (HCC) 1 Occurrences starting 11/05/2021 until 12/05/2022 [facility] Work Phone: Comment on above: 1 Occurrences starting 11/05/2021 until 12/05/2022 End: 01-15-2026 LUNG DIFFUSION CAPACITY (DLCO) LUNG DIFFUSION CAPACITY (DLCO) PFT Routine SOB (shortness of breath) 1 Occurrences starting 12/17/2024 until 01/15/2026 [facility] Comment on above: 1 Occurrences starting 12/17/2024 until 01/15/2026 Nucleic acid assay [facility] Patient Education [facility] Work Phone: Patient referral [facility] Work Phone: End: 06-18-2023 PVR LEG COREY VAS LAB PVR LEG COREY VAS LAB Vascular Lab Routine PVD (peripheral vascular disease) (HCC) 1 Occurrences starting 01/31/2022 until 06/18/2023 [facility] Work Phone: Comment on above: 1 Occurrences starting 01/31/2022 until 06/18/2023 PVR LEG COREY VAS LAB PVR LEG COREY VAS LAB Vascular Lab Routine Peripheral arterial disease (HCC) PVD (peripheral vascular disease) (HCC) 1 Occurrences starting 12/26/2022 [facility] Work Phone: Comment on above: 1 Occurrences starting 12/26/2022 End: 12-05-2022 Radiologic exam chest 2 views XR CHEST 2V FRONTAL/LAT Radiology Routine COPD with chronic bronchitis (HCC) 1 Occurrences starting 11/05/2021 until 12/05/2022 [facility] Work Phone: Comment on above: 1 Occurrences starting 11/05/2021 until 12/05/2022 Respiratory pathogen s DNA and RNA panel - Respiratory specimen by ALEENA with probe detection [facility] End: 01-15-2026 SPIROMETRY WITH DILATOR IF OBSTRUCTED SPIROMETRY WITH DILATOR IF OBSTRUCTED PFT Routine SOB (shortness of breath) 1 Occurrences starting 12/17/2024 until 01/15/2026 [facility] Work Phone: Comment on above: 1 Occurrences starting 12/17/2024 until 01/15/2026 Troponin T.cardiac [Mass/volume] in Serum or Plasma by High sensitivity method [facility] Troponin T.cardiac [Mass/volume] in Serum or Plasma by High sensitivity method [facility] Urinalysis complete panel - Urine URINALYSIS, WITH MICROSCOPIC Lab Routine Dysuria Hematuria, unspecified type Ordered: 09/15/2021 [facility] [facility] Work Phone: Comment on above: Ordered: 09/15/2021 Urinalysis complete panel - Urine UA WITH CULTURE IF INDICATED Lab Routine Dysuria Ordered: 09/15/2021 [facility] Work Phone: Comment on above: Ordered: 09/15/2021 US Carotid arteries [facility] End: 01-01-2025 US Lower extremity artery - bilateral PVR LEG COREY [facility] LAB Vascular Lab Routine Peripheral arterial disease (HCC) 1 Occurrences starting 01/02/2024 until 01/01/2025 [facility] Work Phone: Comment on above: 1 Occurrences starting 01/02/2024 until 01/01/2025 End: 01-11-2026 XR Chest PA and Lateral XR CHEST 2V FRONTAL/LAT Radiology Routine Wheezing 1 Occurrences starting 12/12/2024 until 01/11/2026 [facility] Comment on above: 1 Occurrences starting 12/12/2024 until 01/11/2026 XR Chest PA and Lateral XR CHEST 2V FRONTAL/LAT Radiology Routine Wheezing 12/12/2024 3:36 PM EDT [facility] Immunizations Immunization Date Immunization Notes Care Provider [facility] 03-31-2023 Influenza High-Dose Quadrivalent Dr. Daija Morton Work Phone: [facility] 03-31-2023 influenza virus vaccine, unspecified formulation Daija Morton MD Work Phone: [facility] 06-04-2021 tetanus toxoid, redu marianna diphtheria toxoid, and acellular pertussis vaccine, adsorbed Dr. Daija Morton Work Phone: [facility] 04-05-2021 influenza, high-dose , quadrivalent vaccine (FLUZONE HIGH DOSE QUADRIVALENT) Lizette Ulloa RN Work Phone: [facility] 04-05-2021 influenza virus vaccine, unspecified formulation Anjel Braga OCCUP THER.LEGAL SERVICES MANAGER Work Phone: [facility] 10-08-2020 COVID-19 vaccine, fu ll dose (MODERNA) Lizette Ulloa RN Work Phone: [facility] 09-24-2020 zoster vaccine, live Harriett B monie OCCUP THER.MANAGER FINANCIAL SYSTEMS Work Phone: [facility] 09-16-2020 influenza, high-dose , quadrivalent vaccine (FLUZONE HIGH DOSE QUADRIVALENT) Respiratory Wstr Work Phone: [facility] Work Phone: 08-09-2020 influenza, injectabl e, quadrivalent, contains preservative Harriett Albert OCCUP THER.MANAGER [employer]CIAL SYSTEMS Work Phone: [facility] 08-09-2020 influenza, injectabl e, quadrivalent, preservative free Dr. Daija Morton Work Phone: [facility] 08-09-2020 influenza, seasonal, injectable Dr. Daija Morton Work Phone: [facility] 08-09-2020 influenza, seasonal, injectable, preservative free Harriett Albert OCCUP THER.MANAGER [employer]CIAL SYSTEMS Work Phone: [facility] 05-21-2020 influenza, high-dose , quadrivalent vaccine (FLUZONE HIGH DOSE QUADRIVALENT) Lizette Ulloa RN Work Phone: [facility] Work Phone: 07-11-2019 influenza, high dose seasonal, preservative-free Lizette Ulloa RN Work Phone: [facility] Work Phone: 05-18-2018 pneumococcal polysaccharide vaccine, 23 valent Lizette Ulloa RN Work Phone: [facility] 03-14-2018 influenza, high dose seasonal, preservative-free Lizette Ulloa RN Work Phone: [facility] 05-31-2017 influenza, high dose seasonal, preservative-free Lizette Ulloa RN Work Phone: [facility] 06-01-2016 influenza, high dose seasonal, preservative-free Lizette Ulloa RN Work Phone: [facility] Work Phone: 03-23-2016 influenza, injectabl e, quadrivalent, contains preservative Harriett Albert OCCUP THER.MANAGER [employer]S Work Phone: [facility] 03-23-2016 influenza, injectabl e, quadrivalent, preservative free Dr. Daija Morton Work Phone: [facility] 03-23-2016 influenza, seasonal, injectable Dr. Daija Morton Work Phone: [facility] 03-23-2016 influenza, seasonal, injectable, preservative free Lizette Ulloa RN Work Phone: [facility] Work Phone: 07-14-2015 pneumococcal conjuga te vaccine, 13 valent Lizette Ulloa RN Work Phone: [facility] Work Phone: 09-09-2014 influenza, injectabl e, quadrivalent, contains preservative Harriett Albert OCCUP THER.MANAGER [employer]S Work Phone: [facility] 09-09-2014 influenza, injectabl e, quadrivalent, preservative free Dr. Daija Morton Work Phone: [facility] 09-09-2014 influenza, seasonal, injectable Dr. Daija Morton Work Phone: [facility] 09-09-2014 influenza, seasonal, injectable, preservative free Lizette Ulloa RN Work Phone: [facility] Work Phone: 03-25-2013 pneumococcal polysaccharide vaccine, 23 valent Lizette Ulloa RN Work Phone: [facility] Work Phone: 03-25-[address] Nemesio Morton Work Phone: [facility] Work Phone: 03-25-2013 pneumococcal vaccine , unspecified formulation Respiratory Wstr Work Phone: [facility] Work Phone: 03-24-[address] Daija Morton Work Phone: [facility] 03-24-2013 influenza virus vaccine, unspecified formulation Lizette Ulloa RN Work Phone: [facility] Work Phone: 03-24-2013 influenza, seasonal, injectable Harriett Albert OCCUP THER.MANAGER [employer]S Work Phone: [facility] 03-24-2013 influenza, seasonal, injectable, preservative free Lizette Ulloa RN Work Phone: [facility] Work Phone: 01-03-2013 tetanus toxoid, redu marianna diphtheria toxoid, and acellular pertussis vaccine, adsorbed Lizette Ulloa RN Work Phone: [facility] Payers Date Payer Category Payer Unknown [id number] 2024 Medicare (Managed Care) 1.2. [id number] 2024 Medicaid [id number] 2024 Unknown [id number] 2024 Self-pay [id number] 2023 Private Health Insurance [id number] 2022 Unknown [id number] 2021 Medicare UHC AAR MEDICAR E [facility] MEDICARE HMO [id number] 2021-Present [phone] [address] [address] [place] [address] HMO [id number] 2017 Medicaid [id number] 2017 Medicaid [id number]. [id number] .[id number] 2014 Medicare [id number] 2014 Medicare [id number] 2014 Medicare [id number]. 1.13.159.2.7 .[id number] 1949 Unknown [id number] 2.16.840.1.042541.3.579.2.6 27 1949 Unknown [id number] 2.16.840.1.067044.3.579.2.6 27 1949 Unknown [id number] 2.16.840.1.256025.3.579.2.6 27 Private Health Insurance [facility] H[facility] IN [facility] [id number] Unknown [id number] Unknown [id number] Unknown [id number] 2.16.840.1.628488.3.579.2.4 62 Unknown [id number] 2.840.1.762151.3.579.2.4 62 Unknown [id number] 2.16.840.1.431666.3.579.2.4 62 Unknown [id number] 2.16.840.1.275587.3.579.2.4 62 Unknown [id number] 2.16.840.1.433940.3.579.2.4 62 Unknown [id number] 2.16.840.1.834272.3.579.2.4 62 Unknown [id number] 2.16.840.1.206542.3.579.2.4 62 Unknown [id number] 2.16.840.1.752840.3.579.2.4 62 Unknown [id number] 2.16.840.1.771355.3.579.2.4 62 Unknown [id number] 2.16.840.1.730916.3.579.2.4 62 Unknown [id number] 2.16.840.1.722724.3.579.2.4 62 Unknown [id number] 2.16.840.1.785924.3.579.2.4 62 Unknown [id number] 2.16.840.1.767149.3.579.2.4 62 Unknown [id number] 2.16.840.1.544133.3.579.2.4 62 Unknown [id number] 2.16.840.1.005124.3.579.2.4 62 Unknown [id number] 2.16.840.1.954705.3.579.2.4 62 Unknown [id number] 2.16.840.1.707337.3.579.2.4 62 Unknown [id number] 2.16.840.1.925600.3.579.2.4 62 Unknown [id number] 2.16.840.1.204348.3.579.2.4 62 Unknown [id number] 2.16.840.1.624411.3.579.2.4 62 Unknown [id number] 2.16.840.1.159040.3.579.2.4 62 Unknown [id number] 2.16.840.1.902098.3.579.2.4 62 Unknown [id number] 2.16.840.1.305831.3.579.2.4 62 Unknown [id number] 2.16.840.1.881261.3.579.2.4 62 Unknown [id number] 2.16.840.1.089712.3.579.2.4 62 Unknown [id number] 2.16.840.1.873427.3.579.2.4 62 Unknown [id number] 2.16.840.1.957638.3.579.2.4 62 Unknown [id number] 2.16.840.1.503125.3.579.2.4 62 Unknown [id number] 2.16.840.1.848262.3.579.2.4 62 Unknown [id number] 2.16.840.1.909641.3.579.2.4 62 Unknown [id number] 2.16.840.1.849502.3.579.2.4 62 Unknown [id number] 2.16.840.1.861391.3.579.2.4 62 Unknown [id number] 2.16.840.1.905038.3.579.2.4 62 Unknown [id number] 2.16.840.1.264413.3.579.2.4 62 Unknown [id number] 2.16.840.1.681098.3.579.2.4 62 Unknown [id number] 2.16.840.1.761483.3.579.2.4 62 Unknown [id number] 2.16.840.1.354111.3.579.2.4 62 Unknown [id number] 2.16.840.1.338161.3.579.2.4 62 Unknown [id number] 2.16.840.1.315605.3.579.2.4 62 Unknown [id number] 2.16.840.1.200379.3.579.2.4 62 Unknown [id number] 2.16.840.1.450208.3.579.2.4 62 Unknown [id number] 2.16.840.1.240188.3.579.2.4 62 Unknown [id number] 2.16.840.1.595941.3.579.2.4 62 Unknown [id number] 2.16.840.1.222770.3.579.2.4 62 Unknown [id number] 2.16.840.1.758237.3.579.2.4 62 Unknown [id number] 2.16.840.1.877787.3.579.2.4 62 Unknown [id number] 2.16.840.1.470350.3.579.2.4 62 Unknown [id number] 2.16.840.1.439970.3.579.2.4 62 Unknown [id number] 2.16.840.1.240674.3.579.2.4 62 Unknown [id number] 2.16.840.1.070058.3.579.2.4 62 Unknown [id number] 2.16.840.1.438226.3.579.2.4 62 Unknown [id number] 2.16.840.1.614359.3.579.2.4 62 Unknown [id number] 2.16.840.1.908217.3.579.2.4 62 Unknown [id number] 2.16.840.1.857283.3.579.2.4 62 Unknown [id number] 2.16.840.1.291443.3.579.2.4 62 Unknown [id number] 2.16.840.1.018050.3.579.2.4 62 Unknown [id number] 2.16.840.1.847005.3.579.2.4 62 Unknown [id number] 2.16.840.1.112408.3.579.2.4 62 Unknown [id number] 2.16.840.1.772862.3.579.2.4 62 Unknown [id number] 2.16.840.1.977685.3.579.2.4 62 Unknown [id number] 2.16.840.1.593479.3.579.2.4 62 Unknown [id number] 2.16.840.1.647394.3.579.2.4 62 Unknown [id number] 2.16.840.1.524839.3.579.2.4 62 Unknown [id number] 2.16.840.1.826008.3.579.2.4 62 Unknown [id number] 2.16.840.1.712079.3.579.2.4 62 Social History Date Type Detail Facility Start: 04-10-2020 End: 01-05-2025 Tobacco smoking status VAIS Ex-smoker [facility] Start: 06-19-1964 History of tobacco use Cigarette Smo ker [facility] Start: 04-10-2020 End: 12-26-2022 Cigarettes smoked current (pack per day) - Reported 2 [facility] Start: 04-10-2020 End: 03-23-2024 Tobacco use and exposure Smokeless tobacco non-user [facility] Start: 08-26-2021 End: 12-12-2024 Alcohol intake Current non-drinker of alcohol (finding) [facility] Start: 04-16-2015 History SDOH Alcohol Comment History of alcohol abuse. "I cut that out." [facility] Start: 12-17-2019 History SDOH Financial 5 [facility] Start: 12-17-2019 History SDOH Food Worry 2 [facility] Start: 12-17-2019 History SDOH Food Scarcity 1 [facility] Start: 08-22-2019 End: 01-31-2022 Tobacco Comment patient started using patches [facility] Start: 1950 Sex Assigned At Not on file C [facility] Start: 10-12-2020 End: 03-10-2022 Exposure to SARS-CoV-2 (event) Not sure [facility] Start: [birth year]-19-1964 End: 03-23-2024 Tobacco smoking status NHIS Smokes tobacco daily [facility] Start: 09-17-2021 End: 01-23-2025 Tobacco smoking status NHIS Unknown if ever smoked [facility] Start: 01-20-2021 None [facility] Start: 12-16-2019 Residential [facility] Start: 08-09-2020 Cigarettes [facility] Start: 1950 Sex Assigned At Male W [facility] Start: 09-14-2021 End: 01-28-2022 Exposure to SARS-CoV-2 (event) Unable to assess [facility] Start: 05-14-2018 Tobacco smoking status Light t obacco smoker (finding) [facility] Sex Assigned At [facility] Start: 12-17-2019 End: 12-26-2022 Tobacco use panel [facility] How hard is it for y ou to pay for the very basics like food, housing, medical care, and heating Not hard at all [facility] (I/We) worried whemauricio er (my/our) food would run out before (I/we) got money to buy more. Sometimes true [facility] The food that (I/we) bought just didn't last, and (I/we) didn't have money to get more. Never true [facility] Start: [birth year]-19-1964 History of tobacco use Current smoke r [facility] Start: 08-25-2024 End: 08-25-2024 Tobacco smoking status NHIS Current some day smoker [facility] Start: 06-02-2009 End: 08-25-2024 Sex Male (finding) [facility] Medical Equipment Procedure Code Equipment Code Equipment Original Text Equipment Identifier Dates EGD, with monitored anesthesia care ()[id number] FDA Start: 12-23-2024 EGD, with monitored anesthesia care ()[id number] FDA Start: 01-06-2025 Graft Bureau 7mm T hin Wall Heparin Propaten Ptfe 80cm 60cm Vascular Removable - [id number] Start: 10-10-2019 Patch Cv 8x.8cm Tapr Vsgrd Bov - [id number] Start: 10-23-2013 Comment on above: Description: Implant ed left femoral artery Patch Vascu-Guar d Taper Bovine Pericardial 8x.8cm Cardiovascular [place] - [id number] Start: 10-08-2019 Stent Palmaz Gen esis Opta Pro Flexsegment 8mm 40mm Large Stainless Steel 80 - [id number] Start: 10-08-2019 Stent Palmaz Gen esis Opta Pro Flexsegment 8mm 40mm Large Stainless Steel 80 - [id number] Start: 10-08-2019 Stent Trchbr 7mm 7fr 38mm 120 - [id number] Start: 10-23-2013 Comment on above: Description: Second stent lot #[id number]. exp. 03/2016 Stent Vasc 8mm 1 5cm 120cm .035 - [id number] Start: 10-23-2013 Comment on above: Description: Implant ed in left iliac artery Stent Trchbr 7mm 7fr 38mm 120 - [id number] Start: 10-23-2013 Stent Corey 10mm 8 0mm 120cm .035 - [id number] Start: 10-23-2013 Comment on above: Description: Implant ed in right iliac artery Stent Corey 10mm 8 0mm 120cm .035 - [id number] Start: 10-23-2013 Comment on above: Description: Implant ed in right iliac artery Stent Icast 8mm Ptfe Stainless Steel 59mm 80cm Tracheobronchial Covered - [id number] Start: 10-08-2019 Stent Icast 8mm Ptfe Stainless Steel 59mm 80cm Tracheobronchial Covered - [id number] Start: 10-08-2019 Goals Date Patient Goal [...] Functional status Ambulates;Emeka r;Bedside Commode;Stand and pivot [facility] Work Phone: 12-26-2024 Functional status Stand and pivot [facility] Work Phone: 12-16-2024 Functional status With Assist of 1 [facility] Work Phone: 12-16-2024 Functional status Ambulates;Back to bed W [facility] Work Phone: 09-02-2024 Functional status With Assist of 1 [facility] Work Phone: 09-01-2024 Functional status Bathroom Privilege [facility] Work Phone: 08-02-2023 Functional status With Assist of 1 [facility] Work Phone: 08-01-2023 Functional status Bedrest [facility] Work Phone: 07-26-2023 Functional status Chair [facility] Work Phone: 07-26-2023 Functional status Bedrest [facility] Work Phone: 07-25-2023 Functional status None [facility] Work Phone: 04-04-2023 Functional status Up ad chadwick;Bath room Privilege [facility] Work Phone: 10-22-2022 Functional Status Minimum assistance [facility] 10-22-2022 Functional Status Standard Safet y ID band on, Call device within reach, Bed in low position, Wheels locked, Upper/Half-Length side-rails up, Phone within reach, Bedside Cart Locked [facility] 11-30-2021 Functional status Ambulates [facility] Work Phone: 09-29-2021 Functional Status [facility] 09-13-2021 Are you deaf, or do you have serious difficulty hearing No 09/13/2021 4:47 PM EDT Bessy Nunez, SEYMOUR No [facility] 09-13-2021 Are you blind, or do you have serious difficulty seeing, even when wearing glasses No 09/13/2021 4:47 PM EDT Bessy Nunez, SEYMOUR No [facility] 09-13-2021 Do you have serious difficulty walking or climbing stairs No 09/13/2021 4:47 PM EDT Bessy Nunez, SEYMOUR No [facility] 09-13-2021 Do you have difficul ty dressing or bathing No 09/13/2021 4:47 PM EDT Bessy Nunez, SEYMOUR No [facility] 09-13-2021 Because of a physica l, mental, or emotional condition, do you have difficulty doing errands alone such as visiting a physician's office or shopping No 09/13/2021 4:47 PM EDT Bessy Nunez, SEYMOUR No [facility] 08-21-2021 Functional status Ambulates;Emeka r;Bathroom Privilege [facility] Work Phone: 08-21-2021 Functional status Tolerates Activity Well [facility] Work Phone: Mental Status Date Assessment Result Facility 01-08-2025 Cognitive function Touch/Shaking [facility] Work Phone: 01-05-2025 Cognitive function Awake;Disoriented [facility] Work Phone: 12-26-2024 Cognitive function Voice/Name [facility] Work Phone: 12-17-2024 Cognitive function Voice/Name [facility] Work Phone: 12-16-2024 Cognitive function Voice/Name [facility] Work Phone: 09-02-2024 Cognitive function Voice/Name [facility] Work Phone: 08-25-2024 Cognitive function Level Of Cons ciousness Awake;Alert;Appropriate;Fol lows Commands [facility] Work Phone: 08-02-2023 Cognitive function Voice/Name [facility] Work Phone: 07-26-2023 Cognitive function Person;Place;Time [facility] Work Phone: 07-25-2023 Cognitive function Voice/Name [facility] Work Phone: 04-04-2023 Cognitive function Voice/Name [facility] Work Phone: 02-17-2023 Cognitive function Level Of Cons ciousness Awake;Alert;Appropriate;Fol lows Commands [facility] Work Phone: 12-31-2022 Cognitive function Level Of Cons ciousness Awake;Alert;Appropriate;Fol lows Commands [facility] Work Phone: 10-22-2022 Mental Status Orientation Oriented x 4 [facility] 10-22-2022 Mental Status [facility] 03-07-2022 Cognitive function Level Of Cons ciousness Awake;Alert;Appropriate [facility] Work Phone: 03-02-2022 Cognitive function Level Of Cons ciousness Awake;Alert;Appropriate [facility] Work Phone: 01-28-2022 Cognitive function Level Of Cons ciousness Awake;Alert;Appropriate;Fol lows Commands [facility] Work Phone: 11-30-2021 Cognitive function Voice/Name [facility] Work Phone: 10-08-2021 Cognitive function Level Of Cons ciousness Awake;Alert;Appropriate;Fol lows Commands [facility] Work Phone: 09-29-2021 Mental Status [facility] 09-13-2021 Because of a physica l, mental, or emotional condition, do you have serious difficulty concentrating, remembering, or making decisions No 09/13/2021 4:47 PM EDBessy Ramirez RN No [facility] 08-21-2021 Cognitive function Voice/Name [facility] Work Phone: 06-12-2021 Cognitive function Level Of Cons ciousness Awake;Alert;Appropriate;Fol lows Commands [facility] Work Phone: Clinical Notes 10-08-2019 to [...] in any part of the body Seizures [id number] [employer]. [address] [place] [address]. All rights reserved. This information is not intended as a substitute for professional medical care. Always follow your healthcare professional's instructions. Follow Up Care 03/18/2025 02:08:48 With:Go to emergency room if symptoms worsen Address:Unknown When:2-4 days With:CARLA CRANE MD Address: [address] [place] [phone] When:2-4 days [facility] 03-18-2025 Note Discharge Instructions Thank you for allowing [facility] to assist you with your healthcare needs. [...] with CARLA CRANE MD When:Within 2-4 days Where:[address] [place] [phone] Allergies NKA Medications Please ask your primary [...] in any part of the body Seizures [phone] [employer]. [address] [place] [address]. All rights reserved. This information is not intended as a substitute for professional medical care. Always follow your healthcare professional's instructions. Additional Information VACCINATE! IT SAVES LIVES! Members of the community who have not yet received the COVID-19 vaccine and would like to receive it can visit one of [facility] vaccine clinics. There are many vaccine clinic locations within the [facility]. For locations and available times, please visit [email or web address] It is important to note that some COVID mobile vaccine clinics are held outdoors and may be canceled in rainy or stormy conditions. To learn more about pediatric vaccinations (ages 5-11), we invite you to visit the [facility] webpage. [email or web address] [email or web address] To learn more about the COVID-19 vaccine, we invite you to visit the CDC website for a list of frequently asked questions. https://www.cdc.gov/coronavirus/ 2019-ncov/vaccines/faq.html [facility] Patient Portal Access Instructions: Stay connected with your healthcare team and access your personal medical information anytime with the [facility] Patient Portal. If you would like a full copy of your medical records please contact the [facility] Medical Records Department Monday through Monday between 8a.m. and 4:30p.m. Please follow the directions below to access the portal: 1.Access the email account you provided upon registration to the hospital.2.Look for an invitation email from [facility].3.Open the email and access the invitation link: Accept Invitation to [facility]4.Fill in the required batres to create your account. To access your account, visit [employer] or scan the VOYAA code above. Click the blue button labeled "Access Patient Portal" and then log in with the username [...] you will allow to register on the [facility] Patient Portal for access to your information. You can also access the [facility] Patient Portal on the [employer] andrew. Simply click on "Health Records" under "Health Data" and then click on the [facility] logo. [...] Call your local pharmacy or go to [email or web address] to find one close to you.3.Make use of household items: Use cat litter or old coffee grounds to dispose medications if other options are not available. Mix your drugs with these household products, seal them in an airtight container and throw it into the garbage. Call [facility]: [phone] to be sure your drugs can be [...] aware that I should contact my doctor. 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 Signature: Date/Time: Relationship to Patient: Witness Name/Signature: Date/Time: [facility] 03-18-2025 Note Exam Date Time Procedure Performing Provider Status 03/18/25 3:[address] Maxillofacial w/o Contrast LEYLA SHOOK MD; Auth (Verified) [id number] ORIGINAL EXAMINATION: CT OF THE FACE WITHOUT [...] By: Ren Tompkins Electronically signed By Leyla Shoko MD Dictated Date: 03/18/2025 3:30:22 AM Prelim Date: 03/18/2025 3:35:53 AM Sign Date: 03/18/2025 4:22:40 AM Ordering Provider: MAGDALENE POWELL RP [facility]09-30-2025 Note* Exam Date Time Procedure Performing Provider Status 03/18/25 3:[address] Spine Cervical w/o Contrast LEYLA SHOOK MD; Auth (Verified) [id number] ORIGINAL EXAMINATION: CT OF THE CERVICAL SPINE [...] 4:21:10 AM Ordering Provider: MAGDALENE POWELL RP [facility] [facility] Note* Exam Date Time Procedure Performing Provider Status 03/18/25 3:[address] Head or Brain w/o Contrast LEYLA SHOOK MD; Auth (Verified) [id number] ORIGINAL EXAMINATION: CT OF THE HEAD WITHOUT [...] 4:14:48 AM Ordering Provider: MAGDALENE POWELL RP [facility]08-01-2025 Telephone encounter Note* Telephone Encounter - [...] Saldana LPN January 17, 2025 9:07 AM [facility]08-01-2025 Miscellaneous Notes* Telephone Encounter - Debby Saldana [...] 17, 2025 9:07 AM documented [facility]07[facility]25 Discharge summary Author Ryan Guerin [facility] Note Date/Time January 08, 2025 4:09 pm [facility] Medical Records Department [address] [place] [address] Transfer to [facility] MR#: [id number] Acct: [id number] Name: PEDRO PABLO SIERRA Rep #:[id number] : 1950 74 From: Ryan Guerin DO PCP: Dr. Lorraine Mena MD Status:A DM IN Certification of patient admission REQUIRED AT TIME OF ADMISSION. I CERTIFY THAT POST-HOSPITAL ECF SERVICES ARE REQUIRED TO BE GIVEN ON AN IN-PATIENT BASIS BECAUSE OF THE ABOVE NAMED PATIENT'S NEED FOR ASSISTED CARE ON A CONTINUING BASIS FOR THE CONDITION(S) FOR WHICH HE/SHE WAS RECEIVING IN-PATIENT HOSPITAL SERVICES PRIOR TO HIS/HER TRANSFER TO THE ECF. 01/08/25 1609<Electronically signed by Ryan Guerin DO> [...] advanced diet as tolerated to cardiac per DISTRICT SALES REPRESENTATIVE recommendations. 2. Initiate via PEG: Jevity 1.5Cal [...] in before D/C Order can be placed): Care Home Facility 01/08/25 1609 <Electronically signed by Ryan Guerin DO> Cosigner Signature (if applicable): CC: Dr. Frankie Galindo MD; Dr. Lorraine Mena MD ~ [facility] Work Phone: 1(809) 634-470307-23-2025 Hospital Discharge instructionsAdditional Instructions Date [facility]: [facility] Phone: 1(178) 622-143207-23-2025 Progress note Author [facility] Note Date/Time January 08, 2025 7:25 am [facility] Medical Records Department [address] [place] [address] Progress Note - Hospitalist 01/07/251951 MR#: [id number] Acct: [id number] Name: PEDRO PABLO SIERRA Rep #:[id number] : 1950 74 From: Ryan Guerin DO PCP: Dr. Lorraine Mena MD Status:A DM IN Location: [place] [address] Reason for Visit Chief Complaint: Suspected PEG tomorrow found Subjective Subjective The date of this injury is 01/07/2025: Patient was seen and examined today, he iscurrently on 2 L of oxygen via nasal cannula, I restarted his tube feedings today, we are currently [facility] Objective Data Objective Data [...] 35 minutes Charges/Coding Visit Charges Inpatient E&M: 76293 Subs Hosp L2 01/08/25 07 <Electronically signed by Ryan Guerin DO> Cosigner Signature (if applicable): CC: ~ Signed [facility] Work Phone: 1(494) 999-607807-22-2025 Progress note Author [facility] Note Date/Time January 07, 2025 7:52 pm [facility] Medical Records Department [address] [place] [address] Progress Note - Hospitalist 01/07/251943 MR#: [id number] Acct: [id number] Name: PEDRO PABLO SIERRA Shannan Rep #:[id number] : 1950 74 From: Ryan Guerin DO PCP: Dr. Lorraine Mena MD Status:A DM IN Location: [place] [address] Reason for Visit Chief Complaint: Suspected PEG [...] 35 minutes Charges/Coding Visit Charges Inpatient E&M: 11030 Subs Hosp L2 01/07/251951 <Electronically signed by Ryan Guerin DO> Cosigner Signature (if applicable): CC: ~ Signed [facility] Work Phone: 1(515) 898-713407-22-2025 Progress note Author Paulino Henderson [facility] Note Date/Time January 07, 2025 5:41 pm [facility] Medical Records Department [address] [place] [address] Progress Note 01/07/251738 MR#: [id number] Acct: [id number] Name: PEDRO PABLO SIERRA Shannan Rep #:[id number] : 1950 74 From: Paulino Henderson DO PCP: Dr. Lorraine Mena MD Status:A DM IN Location: [place] [address]- 1 Progress Note Patient had some respiratory distress [...] for daily usage. Visit Charges Inpatient E&M: 16949 [facility] 01/07/25 1741 <Electronically signed by Paulino Henderson DO> Paulino Henderson DO Cosigner Signature (if applicable): CC: ~ Signed [facility] Work Phone: 1(883) 778-947207-21-2025 Consult note Author [facility]un [facility] Note Date/Time January 06, 2025 6:04 pm [facility] Medical Records Department [address] [place] [address] Anesthesia Postop Eval II 01/06/25 1755 MR#: [id number] Acct: [id number] Name: PEDRO PABLO SIERRA Shannan Rep #:[id number] : 1950 74 From: Segun Patel MD PCP: Dr. Lorraine Mena MD Status:A DM IN Y Race: C Location: [place] [address] 1-1 Anesthesia Postop Eval I Sum Postop Eval Completion status Anesthesia document: Postop Eval 1 completed: Yes Anesthesia Postop Eval I Summary Anesthesia Postop Eval I Summary: Anesthesia Postop Eval I: Assessment Summary Airway patent Yes 01/06/25 16:59 ELECTRICAL PROJECT ENGINEER.ABAR Spontaneous unlabored Yes 01/06/25 16:59 ELECTRICAL PROJECT ENGINEER.ABAR respirations Mental status Awake,Calm 01/06/25 16:59 ELECTRICAL PROJECT ENGINEER.ABAR nausea No 01/06/25 16:59 ELECTRICAL PROJECT ENGINEER.ABAR Vomiting No 01/06/25 16:59 ELECTRICAL PROJECT ENGINEER.ABAR Anesthesia Postop Eval I: Fluid Summary Crystalloid volume administer 100 01/06/25 16:59 ELECTRICAL PROJECT ENGINEER.ABAR (ml) Colloids volume administered ( ml) Blood Product volume administered (ml) Total IV fluid infused 100 01/06/25 16:59 ELECTRICAL PROJECT ENGINEER.ABAR Anesthesia Postop Eval I: Summary Notes Anesthesia Complication No 01/06/25 16:59 ELECTRICAL PROJECT ENGINEER.ABAR Anesthesia Complication Comment: Post-operative progress note Anesthesia: [...] patient's current conditions. Patient transferred back to PCU with oxygen. 01/06/251803 <Electronically signed by Segun corbett MD> Date _ Segun Patel MD Cosigner Signature: Date CC: ~ Signed [facility] Work Phone: 1(947) 782-352607-21-2025 Consult note Author Roman Holland [facility] Note Date/Time January 06, 2025 4:59 pm [facility] Medical Records Department [address] [place] [address] Anesthesia Postop Eval I 01/06/25 1658 MR#: [id number] Acct: [id number] Name: PEDRO PABLO SIERRA R Rep #:[id number] : 1950 74 From: Roman reaves CRNA PCP: Dr. Lorraine Mena MD Status:A DM IN Y Race: C Location: [place] [address] 06-19 Anesthesia: Postop Eval I Current Vital [...] Anesthesia document: Postop Eval 1 completed: Yes 01/06/251 <Electronically signed by Roman Greene CRNA> Date _ Roman Holland CRNA Cosigner Signature: Date CC: ~ Signed [facility] Work Phone: 1(329) 911-663907-21-2025 Consult note Author Segun [facility] Note Date/Time January 06, 2025 3:58 pm [facility] Medical Records Department [address] [place] [address] Pre-Anesthesia Evaluation 01/06/25 1542 MR#: [id number] Acct: [id number] Name: PEDRO PABLO SIERRA Shannan Rep #:[id number] : 1950 74 From: Segun Patel MD PCP: Dr. Lorraine Mena MD Status:A DM IN Y Race: C Location: [place] [address] 06-19 ASA Classification* ASA Classification ASA Classification: 4 [...] (Patient's ex- is the medical power of employee benefits attorney (Joseph Burrell).) Anesthesia Focused Assessment* Temperature: [...] tube placement. 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 - spirits model: Anesthesia History - spirits model Hx Hospitalization Yes 08/08/20 16:59 Any Problems [...] Yes NPO since: 00:00 PONV PONV - spirits model: PONV - spirits model Female HX of Motion Sickness HX of N/V After Surgery Non-Smoker Duration of Surgery greater than 60 minutes Number of Risk Factors PONV Score Height & Weight Height & Weight: Anesthesia: Height & Weight Height 6 ft 01/06/25 08:50 Weight: 66.5 kg 01/06/25 08:50 Body Mass Index (BMI) 19.8 01/06/25 05:00 Respiratory Assessment Respiratory Assessment - spirits model: Respiratory Tract Infection Hx - spirits model Hx Respiratory Tract Infection No 12/23/24 09:15 Any additional information?: Yes Hx Respiratory Tract Infection: Yes History of Anesthesia Respiratory Infection details: Patient had an episode of aspiration pneumonia yesterday at the senior care. Patient had to be put up to 10 L of oxygen on the Ventimask. He is currently on 8 L nasal cannula. STOP Sleep Apnea STOP Sleep Apnea - spirits model: STOP Sleep Apnea - spirits model Hx Hypertension Yes 01/05/25 14:48 Hx Sleep [...] Tobacco Use History Tobacco Use History - spirits model: Tobacco Use History - spirits model Tobacco Use Cigarettes 12/26/24 04:00 Smoking Status Unknown if ever smoked 01/05/25 14:48 Hx Tobacco Use No: unknown 01/05/25 14:48 Years Smoking Packs Smoked per Day Smoking Cessation Date was Yes - quit smoking within 15 01/05/25 09:44 within the last 15 years years Hx Smoking Cessation Date Hx Smoking Cessation No 01/05/25 14:48 Counseling Hematologic Medial History Hematologic Hx - spirits model: 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 01/06/25 5193 <Electronically signed by Segun corbett MD> Date _ Segun Patel MD Cosigner Signature: Date CC: ~ Signed [facility] Work Phone: 1([phone]) 288-318107-21-[address] [facility] 01-06-[address] [facility]07-21-2025 Radiology Diagnostic study [facility]07-20-2025 Consult note Author Paulino Friend [facility] Note Date/Time January 05, 2025 7:50 pm [facility] Medical Records Department [address] [facility] [place] [address] Consultation - GI 01/05/251945 MR#: [id number] Acct: [id number] Name: PEDRO PABLO SIERRA Shannna Rep #:[id number] : 1950 74 From: Paulino Henderson DO PCP: Dr. Lorraine Mena MD Status:A DM IN Location: [place] [id number]- HPI Consult Data Date of Consult: 01/05/25 [...] to put the PEG tube back in. [facility] Medical History Acute CVA (cerebrovascular accident) [...] 76.7 H, Lymph % (Auto) 14.2 L, Sedgwick % (Auto) 7.0, Eos % (Auto) 1.2, [...] IMPRESSION: COPD. No acute findings. Reading Location: [id number] KUB X-Ray 01/05/25 13:02 IMPRESSION: A PEG tube tip is projected in the region of the stomach. Contrast material is identified within the stomach. There is no extravasation of the contrast. Reading Location: [id number] Assessment & Plan Assessment/Plan (1) PEG tube malfunction: PLAN: 74-year-old with multiple comorbidities who recently pulled his PEG tube out. We will take him for endoscopy tomorrow for PEG tube replacement. His bowel return was explained alternatives, benefits, risk including understanding bleeding, infection, sepsis, perforation, need for more surgery and . He will have an ASA of 3. Charges/Coding Visit Charges Inpatient E&M: 35748 Init Hosp L3 01/05/251949 <Electronically signed by Paulino Henderson DO> Cosigner Signature (if applicable): CC: Dr. Lorraine Mena MD~ Signed [facility] Work Phone: 1(647) 751-239407-20-2025 History and physical note Author Frankie Galindo [facility] Note Date/Time January 05, 2025 2:02 pm [facility] Medical Records Department [address] [place] [address] H&P Exam - Hospitalist 01/05/25 1336 MR#: [id number] Acct: [id number] Name: PEDRO PABLO SIERRA Rep #:[id number] : 1950 74 From: Frankie Galindo MD PCP: Dr. Lorraine Mena MD Status:A DM IN Location: [facility] [id number] HPI - General General Date of Admission: 01/05/25 Date of Service: 01/05/25 Chief Complaint: Suspected PEG tomorrow found HPI Narrative PEDRO PABLO SIERRA, is a 74 M with recent diagnosis of acute left MCA CVA discharged to a care home facility. Patient had a PEG tube placed [...] to a monitored bed for further management [facility] Medical History Acute CVA (cerebrovascular accident) [...] 76.7 H, Lymph % (Auto) 14.2 L, Sedgwick % (Auto) 7.0, Eos % (Auto) 1.2, [...] IMPRESSION: COPD. No acute findings. Reading Location: [id number]-[id number] KUB X-Ray 01/05/25 13:02 IMPRESSION: A PEG tube tip is projected in the region of the stomach. Contrast material is identified within the stomach. There is no extravasation of the contrast. Reading Location: [id number] Assessment & Plan Assessment/Plan (1) Aspiration into respiratory tract: (2) Bronchospasm, acute: PLAN: Plan Patient is a 74-year-old gentleman with recent left MCA CVA with resultant aphasia and dysphagia requiring PEG tube, who was transferred from [facility] with suspicion of PEG tube malfunctioning. [...] 78 Minutes Charges/Coding Visit Charges Inpatient E&M: 09442 Init Hosp L3 01/05/25 1402 <Electronically signed by Frankie Galindo MD> Cosigner Signature (if applicable): CC: Dr. Frankie Galindo MD; Dr. Lorraine Mena MD~ Signed [facility] Work Phone: 1(518) 487-196507-20-2025 Discharge summary Author Fco Monroy [facility] Note Date/Time January 05, 2025 1:41 pm [facility] Medical Records Department [address] [place] [address] Emergency Department Summary 01/05/25 MR#: [id number] Acct: [id number] Name: PEDRO PABLO SIERRA Rep #:[id number] : 1950 74 From: Fco Monroy MD [...] sent in because of malfunctioning gastrostomy tube. Strip Stamp Straightener states he was sent in for hypertension. Apparently their blood pressure readings were elevated and reason the chief complaint is hypertension. Per the senior care report to nursing staff he was sent in because of gastrostomy tube problems. Reading summary of care patient with history of COPD/asthma with chronic hypoxemic respiratory failure on 2 L by nasal cannula. There was no mention of aspiration or risks of aspiration. Prior similar symptoms: No Recent Illness/Hospitalization: Yes [facility] Medical History Acute CVA (cerebrovascular [...] 76.7 H Lymph % (Auto) 14.2 L Sedgwick % (Auto) 7.0 Eos % (Auto) 1.2 [...] IMPRESSION: COPD. No acute findings. Reading Location: [id number] KUB X-Ray 01/05/25 13:02 IMPRESSION: A PEG tube tip is projected in the region of the stomach. Contrast material is identified within the stomach. There is no extravasation of the contrast. Reading Location: [id number] Radiology report was reviewed. Since there is [...] failure with hypoxia, Current use of senior living anticoagulation, CVA (cerebral vascular accident), COPD (chronic [...] MD [Primary Care Provider] - Print Language: Filipino Disposition Disposition: Assisted Living What to do if you have Problems For any increased pain, shortness of breath, bleeding, nausea or vomiting, chestpain, or any unexpected problems, contact your Primary Care Provider. Call [facility] ([phone]) or report to the closest Emergency Room. Call 911 if necessary. 01/05/25 1341 <Electronically signed by Fco Monroy MD> Cosigner Signature (if applicable): CC: Dr. Lorraine Mena MD ~ Signed [facility] Work Phone: 1(726) 808-920507-20-2025 Discharge summary Author Fco Monroy [facility] Note Date/Time January 05, 2025 1:41 pm [facility] Medical Records Department [address] [place] [address] Emergency Department Summary 01/05/25 MR#: [id number] Acct: [id number] Name: PEDRO PABLO SIERRA Rep #:[id number] : 1950 74 From: Fco Monroy MD [...] sent in because of malfunctioning gastrostomy tube. Strip Stamp Straightener states he was sent in for hypertension. Apparently their blood pressure readings were elevated and reason the chief complaint is hypertension. Per the senior care report to nursing staff he was sent in because of gastrostomy tube problems. Reading summary of care patient with history of COPD/asthma with chronic hypoxemic respiratory failure on 2 L by nasal cannula. There was no mention of aspiration or risks of aspiration. Prior similar symptoms: No Recent Illness/Hospitalization: Yes [facility] Medical History Acute CVA (cerebrovascular [...] 76.7 H Lymph % (Auto) 14.2 L Sedgwick % (Auto) 7.0 Eos % (Auto) 1.2 [...] IMPRESSION: COPD. No acute findings. Reading Location: [facility] KUB X-Ray 01/05/25 13:02 IMPRESSION: A PEG tube tip is projected in the region of the stomach. Contrast material is identified within the stomach. There is no extravasation of the contrast. Reading Location: [facility] Radiology report was reviewed. Since [...] respiratory failure with hypoxia, Current use of machine precision etcher anticoagulation, CVA (cerebral vascular accident), COPD (chronic [...] MD [Primary Care Provider] - Print Language: Filipino Disposition Disposition: Assisted Living What to do if you have Problems For any increased pain, shortness of breath, bleeding, nausea or vomiting, chestpain, or any unexpected problems, contact your Primary Care Provider. Call [facility] ([phone]) or report to the closest Emergency Room. Call 911 if necessary. 01/05/25 1341 <Electronically signed by Fco Monroy MD> Cosigner Signature (if applicable): CC: Dr. Lorraine Mena MD ~ Signed [facility] Work Phone: 1(960) 324-929407-20-2025 [facility] Radiology Diagnostic study 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 [facility] states that this morning he fell out [...] further history based on his aphasia/mute status [facility] Medical History Acute CVA (cerebrovascular [...] the patient's PEG tube is a 20 Vincentian. Therefore we will obtain a similar size [...] fall, PEG tube malfunction, Current use of senior living anticoagulation, CVA (cerebral vascular accident), COPD (chronic [...] MD [Primary Care Provider] - Print Language: Filipino What to do if you have Problems For any increased pain, shortness of breath, bleeding, nausea or vomiting, chestpain, or any unexpected problems, contact your Primary Care Provider. Call [facility] ([phone]) or report to the closest Emergency Room. Call 911 if necessary. 01/03/25 0658 <Electronically signed by Arnulfo Zhao DO> Cosigner Signature (if applicable): CC: Dr. Daija Morton MD ~ Signed [facility] Work Phone: 1(347) 511-570407-18-2025 Radiology Diagnostic study [facility]07-18-2025 Radiology Diagnostic study [facility]07-18-2025 Radiology Diagnostic study [facility] 01-03-2025 Radiology Diagnostic study [facility]07-10-2025 Discharge summary Author Shilpa Contreras [facility] Note Date/Time December 26, 2024 3:43 pm [facility] Medical Records Department [address] [place] [address] Discharge Summary 12/26/24 1533 MR#: [id number] Acct: [id number] Name: PEDRO PABLO SIERRA Rep #:[id number] : 1950 74 From: Shilpa Contreras MD PCP: Dr. Diaja Morton MD Status:ADM I N Location: [place] [address] Providers Date of Admission: 12/18/24 Date of Discharge: 12/26/24 Primary Care Physician: Dr. Daija Morton MD Consultations 12/19/24 15:57 Consult: Gastroenterology Routine Consulting Provider: [facility] Reason for Consult: Dysphagia-PEG EMERGENT Consult: [...] he had reported lacking healthcare power of employee benefits attorney and living will but had noted [...] Acute COPD Exacerbation who re-presentED to the [facility] ED on 12/17/24 w/ severe dysarthria and [...] s/p PEG placement with following transition from [place] ASA->eliquis, d/c IV keppra and resume liquid [...] 84.7 H, Lymph % (Auto) 6.5 L, Sedgwick % (Auto) 7.8, Eos % (Auto) 0.2, [...] continued nutrition consultation and evaluation at the care home facility for ongoing assessments and alteration to [...] Privileges] - (Follow-up with Neurology, may see STAGE BUILDER within 2-4 weeks of discharge.) Disposition Disposition (needs filled in before D/C Order can be placed): Care Home Facility Charges/Coding Visit Charges Inpatient E&M: 26100 Disch Hosp >30min 12/26/24 1543 <Electronically signed by Shilpa Contreras MD> Cosigner Signature (if applicable): CC: Dr. Shilpa Contreras MD; Dr. Daija Morton MD~ Signed [facility] Work Phone: 1(400) 939-483507-10-2025 [facility]07-10-2025 Telephone encounter Note* Telephone Encounter - Anjel Braga APRN.CNP - 12/26/2024 3:13 PM EDT Admitted to hospital. Will review further at follow up. Anjel Braga APRN.CNP [facility]07-10-2025 Miscellaneous Notes* Telephone Encounter - Anjel Braga APRN.CNP - 12/26/2024 3:13 PM EDT Admitted to hospital. Will review further at follow up. Anjel Braga APRN.CNP documented in this encounterR[facility]07-10-2025 Progress note Author Shilpa Contreras [facility] Note Date/Time December 26, 2024 12:3 1pm [facility] Medical Records Department [address] [place] [address] Progress Note - Hospitalist 12/26/24 0700 MR#: [id number] Acct: [id number] Name: PEDRO PABLO SIERRA Rep #:[id number] : 1950 74 From: Shilpa Contreras MD PCP: Dr. Daija Morton MD Status:ADM I N Location: [place] [address] Reason for Visit Reason for Visit: Diagnoses Cerebral infarction, unspecified (12/18/24) Facial weakness (12/18/24) Aphasia (12/18/24) Subjective Subjective Patient with no acute events overnight per nursing report. Blood pressure has vacillated but improved with initiation of low-dose hydralazine per PEG. Given continued clinical stability and at this point only awaiting care home facility discussed with nursing staff and patient [...] Acute COPD Exacerbation who re-presents to the [facility] ED on 12/17/24 w/ severe dysarthria and [...] s/p PEG placement with following transition from [place] ASA->eliquis,d/c IV keppra and resume liquid carbamazepine, [...] he had reported lacking healthcare power of employee benefits attorney and living will but had noted he would wanthis ex- Joseph be his medical decision-maker at that time if absolutely necessary. Full Code status. Charges/Coding Visit Charges Inpatient E&M: 14955 Subs Hosp L2 NIHSS NIHSS Nursing Documentation NIHSS Nursing Documentation: NIHSS: Ischemic Stroke/TIA Start: 12/17/24 18:52 Text: For PCU Patients: NIH and Neuro Check every 4 Status: Complete hours, PRN and with change in RN caregiver. Freq: Q12 Protocol: Activity Type Activity Date Activity User E-sign Co-sign Detail Recorded Client Recorded Date Recorded By Document 12/22/24 08:15 DS [id number] 12/22/24 08:19 DS 12/22/24 08:15 NIH Stroke Scale [NIHSS] A score of 0 is "normal" or asymptomatic . Total possible score is [...] 12 Query Text:A score of 0 is "normal" or asymptomatic. Total possible score is 42 [...] Cosigner Signature (if applicable): CC: ~ Signed [facility] Work Phone: 1(129) 357-244807-09-2025 Progress note Author Shilpa Contreras [facility] Note Date/Time December 25, 2024 1:49p m [facility] Medical Records Department [address] [place] [address] Progress Note - Hospitalist 12/25/24 0652 MR#: [id number] Acct: [id number] Name: PEDRO PABLO SIERRA Rep #:[id number] : 1950 74 From: Shilpa Contreras MD PCP: Dr. Daija Morton MD Status:ADM I N Location: [place] [address] Reason for Visit Reason for Visit: Diagnoses [...] 12/25/24 05:23 12/25/24 05:23 12/25/24 05:23 12/25/24 05:12/25/24 05:23 Oxygen Flow Rate (L/min) 2 Oxygen [...] 82.3 H, Lymph % (Auto) 8.0 L, Sedgwick % (Auto) 8.4, Eos % (Auto) 0.3, [...] Acute COPD Exacerbation who re-presents to the [facility] ED on 12/17/24 w/ severe dysarthria and [...] s/p PEG placement with following transition from [place] ASA->eliquis,d/c IV keppra and resume liquid carbamazepine, [...] he had reported lacking healthcare power of employee benefits attorney and living will but had noted he would wanthis ex- Joseph be his medical decision-maker at that time if absolutely necessary. Full Code status. Charges/Coding Visit Charges Inpatient E&M: 32491 Subs Hosp L2 NIHSS NIHSS Nursing Documentation NIHSS Nursing Documentation: NIHSS: Ischemic Stroke/TIA Start: 12/17/24 18:52 Text: For PCU Patients: NIH and Neuro Check every 4 Status: Complete hours, PRN and with change in RN caregiver. Freq: Q12 Protocol: Activity Type Activity Date Activity User E-sign Co-sign Detail Recorded Client Recorded Date Recorded By Document 12/22/24 08:15 DS [id number] 12/22/24 08:19 DS 12/22/24 08:15 NIH Stroke Scale [NIHSS] A score of 0 is "normal" or asymptomatic . Total possible score is [...] 12 Query Text:A score of 0 is "normal" or asymptomatic. Total possible score is 42 [...] Cosigner Signature (if applicable): CC: ~ Signed [facility] Work Phone: 1(723) 565-537007-08-2025 Progress note Author Paulino Friend [facility] Note Date/Time December 24, 2024 5:58p m [facility] Medical Records Department [address] [place] [address] Progress Note 12/24/24 1755 MR#: [id number] Acct: [id number] Name: PEDRO PABLO SIERRA Rep #:[id number] : 1950 74 From: Paulino Henderson DO PCP: Dr. Daija Morton MD Status:ADM I N Location: [place] [address] Progress Note Patient is still tolerating PEG [...] and anticoagulation therapy. Visit Charges Inpatient E&M: 75403 Subs Hosp L2 12/24/241757 <Electronically signed by Paulino Henderson DO> Paulino Friend DO Cosigner Signature (if applicable): CC: ~ Signed [facility] Work Phone: 1(143) 293-130207-08-2025 Discharge summary Author Shilpa Contreras [facility] Note Date/Time December 24, 2024 5:11p m [facility] Medical Records Department [address] [place] [address] Transfer to [facility] MR#: [id number] Acct: [id number] Name: PEDRO PABLO SIERRA Rep #:[id number] : 1950 74 From: Shilpa Contreras MD PCP: Dr. Daija Morton MD Status:ADM I N Certification of patient admission REQUIRED AT TIME OF ADMISSION. I CERTIFY THAT POST-HOSPITAL ECF SERVICES ARE REQUIRED TO BE GIVEN ON AN IN-PATIENT BASIS BECAUSE OF THE ABOVE NAMED PATIENT'S NEED FOR ASSISTED CARE ON A CONTINUING BASIS FOR THE [...] Acute COPD Exacerbation who re-presents to the [facility] ED on 12/17/24 w/ severe dysarthria and [...] s/p PEG placement thus will transition from [place] ASA->eliquis, d/c IV keppra and resume liquid [...] he had reported lacking healthcare power of employee benefits attorney and living will but had noted [...] advanced diet as tolerated to cardiac per DISTRICT SALES REPRESENTATIVE recommendations. 2. Will order to start [...] Care Provider: Daija Morton Consulting Providers: Aung Peers; Gogo Gill; Ryan Vargas; Tamika Xiao; Daylin [...] continued nutrition consultation and evaluation at the care home facility for ongoing assessments and alteration to [...] Privileges] - (Follow-up with Neurology, may see STAGE BUILDER within 2-4 weeks of discharge.) Disposition Disposition (needs filled in before D/C Order can be placed): Care Home Facility 12/24/24 1711 <Electronically signed by Shilpa Contreras MD> Cosigner Signature (if applicable): CC: Daylin Schmitt; Gogo Gill MD; Chrystal Collier MD; Dr. Paul Yang MD;Dr. Roman Patel DO; Dr. Aung Peres MD; Dr. Daija Morton MD; Dr. Ryan Vargas MD; Dr. Lisha Talamantes DO; Jo Hughes MD; Luan Mcgraw MD; DO Kerri; Angelo Wiley MD; Neelam Almendarez DO ~ [facility] Work Phone: [phone]) [phone] Progress note Author Mayamalcom Talamantes [facility] Note Date/Time December 24, 2024 2:56p m [facility] Medical Records Department [address] [place] [address] Progress Note - Neurology 12/24/24 1451 MR#: [id number] Acct: [id number] Name: PEDRO PABLO SIERRA Rep #:[id number] : 1950 74 From: Maya Talamantes MD PCP: Dr. Daija Morton MD Status:ADM I N Location: [place] [address] Objective Data Objective Data Vital Signs: Vital Signs Temp Pulse Resp BP Pulse Ox O2 Del Method O2 Flow Rate 97.6 F L 55 L 18 168/71 H 97 Nasal Cannula 2 12/24/24 11:00 12/24/24 13:00 12/24/24 11:00 12/24/24 13:00 12/24/24 11:00 12/24/24 11:12/24/24 11:00 Oxygen Flow Rate (L/min) 2 Oxygen [...] 82.4 H, Lymph % (Auto) 8.5 L, Sedgwick % (Auto) 7.7, Eos % (Auto) 0.4, [...] on keppra, PVD, and CDwho presented to [facility] ED on 12/17/2024 with dysarthria and [...] bc patient does not cooperate- swats the inside technical sales representative away. Neurological examination limited by decreased mental [...] Date Recorded By Document 12/22/24 08:15 DS [id number] 12/22/24 08:19 DS 12/22/24 08:15 NIH Stroke Scale [NIHSS] A score of 0 is "normal" or asymptomatic . Total possible score is [...] 12 Query Text:A score of 0 is "normal" or asymptomatic. Total possible score is 42 [...] Cosigner Signature (if applicable): CC: ~ Signed [facility] Work Phone: 1(471) 103-187207-08-2025 Progress note Author Shilpa Contreras [facility] Note Date/Time December 24, 2024 2:46p m [facility] Medical Records Department [address] [place] [address] Progress Note - Hospitalist 12/24/24705 MR#: [id number] Acct: [id number] Name: PEDRO PABLO SIERRA Rep #:[id number] : 1950 74 From: Shilpa Contreras MD PCP: Dr. Daija Morton MD Status:ADM I N Location: [place] [address] Reason for Visit Reason for Visit: Diagnoses [...] 82.4 H, Lymph % (Auto) 8.5 L, Sedgwick % (Auto) 7.7, Eos % (Auto) 0.4, [...] Referring Physician: Daija Morton Performed By: Lit Juárez, RVT Physical Exam Narrative Physical Examination: General: [...] Acute COPD Exacerbation who re-presents to the [facility] ED on 12/17/24 w/ severe dysarthria and [...] s/p PEG placement thus will transition from [place] ASA->eliquis, d/c IV keppra and resume liquid carbamazepine,transition to HTN regimen per PEG, addback statin per PEG. Awaiting care home facility placement pre-CERT for transition as clinically [...] he had reported lacking healthcare power of employee benefits attorney and living will but had noted he would wanthis ex- Joseph be his medical decision-maker at that time if absolutely necessary. Patient and daughter have been working with healthcare team closely and patient is maintained full code at this time. Charges/Coding Visit Charges Inpatient E&M: 09321 Subs Hosp L3 NIHSS NIHSS Nursing Documentation NIHSS Nursing Documentation: NIHSS: Ischemic Stroke/TIA Start: 12/17/24 18:52 Text: For PCU Patients: NIH and Neuro Check every 4 Status: Complete hours, PRN and with change in RN caregiver. Freq: Q12 Protocol: Activity Type Activity Date Activity User E-sign Co-sign Detail Recorded Client Recorded Date Recorded By Document 12/22/24 08:15 DS [id number] 12/22/24 08:19 DS 12/22/24 08:15 NIH Stroke Scale [NIHSS] A score of 0 is "normal" or asymptomatic . Total possible score is [...] 12 Query Text:A score of 0 is "normal" or asymptomatic. Total possible score is 42 [...] Cosigner Signature (if applicable): CC: ~ Signed [facility] Work Phone: 1(150) [phone] Telephone encounter Note* Telephone Encounter - Daija Morton MD - 12/24/2024 2:09 PM EDT Noted. Daija Tripp MD [facility]07-08-2025 Miscellaneous Notes* Telephone Encounter - Daija Morton MD - 12/24/2024 2:09 PM EDT Noted. Daija Tripp MD * Telephone Encounter - Kelly Zelaya RN - 12/17/2024 2:20 PM EDT [facility] called in to give an update [...] use. Kelly Zelaya RN [facility] Consult note Author Kyaw Borrego [facility] Note Date/Time December 23, 2024 3:51p [facility] Medical Records Department [address] [place] [address] Anesthesia Postop Eval II 12/23/24 1551 MR#: [id number] Acct: [id number] Name: PEDRO PABLO SIERRA Rep #:[id number] : 1950 74 From: Kyaw Borrego MD PCP: Dr. Daija Morton MD Status:ADM I N Y Race: C Location: [place] [address] 1-1 Anesthesia Postop Eval I Sum Postop Eval Completion status Anesthesia document: Postop Eval 1 completed: Yes Anesthesia Postop Eval I Summary Anesthesia Postop Eval I Summary: Anesthesia Postop Eval I: Assessment Summary Airway patent Yes 12/23/24 15:30 ELECTRICAL PROJECT ENGINEER.CSIR Spontaneous unlabored Yes 12/23/24 15:30 ELECTRICAL PROJECT ENGINEER.CSIR respirations Mental status nausea No 12/23/24 15:30 ELECTRICAL PROJECT ENGINEER.CSIR Vomiting No 12/23/24 15:30 ELECTRICAL PROJECT ENGINEER.CSIR Anesthesia Postop Eval I: Fluid Summary Crystalloid volume administer 200 12/23/24 15:30 ELECTRICAL PROJECT ENGINEER.CSIR (ml) Colloids volume administered ( ml) Blood Product volume administered (ml) Total IV fluid infused 200 12/23/24 15:30 ELECTRICAL PROJECT ENGINEER.CSIR Anesthesia Postop Eval I: Summary Notes Anesthesia Complication No 12/23/24 15:30 ELECTRICAL PROJECT ENGINEER.CSIR Anesthesia Complication Comment: Post-operative progress note Anesthesia: Postop Eval II Evaluation Mental status: Awake Pain Level: 0 nausea: No Vomiting: No 12/23/24 1551 <Electronically signed by Kyaw Borrego MD > Date _ Kyaw Borrego MD Cosigner Signature: Date CC: ~ Signed [facility] Work Phone: 1(375) 804-113307-07-2025 Consult note Author Rocío [facility] Note Date/Time December 23, 2024 3:32p m [facility] Medical Records Department [address] [place] [address] Anesthesia Postop Eval I 12/23/24 1530 MR#: [id number] Acct: [id number] Name: PEDRO PABLO SIERRA Shannan Rep #:[id number] : 1950 74 From: Roíco Barrios CRNA PCP: Dr. Daija Morton MD Status:ADM I N Y Race: C Location: [place] [address] 06-19 Anesthesia: Postop Eval I Current Vital [...] 12/23/24 1532 <Electronically signed by Rocío smith CRNA> Date _ Rocío Barrios ELECTRICAL PROJECT ENGINEER Cosigner Signature: Date CC: ~ Signed [facility] Work Phone: 1(381) 287-869307-07-2025 Progress note Author Shilpa Contreras [facility] Note Date/Time December 23, 2024 3:24p m [facility] Medical Records Department [address] [place] [address] Progress Note - Hospitalist 12/23/24 0719 MR#: [id number] Acct: [id number] Name: PEDRO PABLO SIERRA Rep #:[id number] : 1950 74 From: Shilpa Contreras MD PCP: Dr. Daija Morton MD Status:ADM I N Location: [place] [address] Reason for Visit Reason for Visit: Diagnoses [...] Acute COPD Exacerbation who re-presents to the [facility] ED on 12/17/24 w/ severe dysarthria and [...] Acute COPD Exacerbation who re-presents to the [facility] ED on 12/17/24 w/ severe dysarthria and [...] prophylaxis. Once patient requires PEG tube and care home facility placement is pre-CERT obtained will transition [...] DVT prophylaxis: As noted currently maintained on [place] aspirin therapy, planinitiation of Eliquis therapy following PEG tube placement likely 12/25/2019 5 AM. #17. CODE status: From previous discussions with patient he had reported lacking healthcare power of employee benefits attorney and living will but had noted he would wanthis ex- Joseph be his medical decision-maker at that time if absolutely necessary. Patient and daughter have been working with healthcare team closely and patient is maintained full code at this time. Charges/Coding Visit Charges Inpatient E&M: 09768 Subs Hosp L3 NIHSS NIHSS Nursing Documentation NIHSS Nursing Documentation: NIHSS: Ischemic Stroke/TIA Start: 12/17/24 18:52 Text: For PCU Patients: NIH and Neuro Check every 4 Status: Complete hours, PRN and with change in RN caregiver. Freq: Q12 Protocol: Activity Type Activity Date Activity User E-sign Co-sign Detail Recorded Client Recorded Date Recorded By Document 12/22/24 08:15 DS [id number] 12/22/24 08:19 DS 12/22/24 08:15 NIH Stroke Scale [NIHSS] A score of 0 is "normal" or asymptomatic . Total possible score is [...] 12 Query Text:A score of 0 is "normal" or asymptomatic. Total possible score is 42 . ED: Notify Physician for NIHSS increase by > / = 3 points. Inpatient: RN or Physician to activate a stroke alert for NIHSS increase of > / = 3 points. Coma Scale [Assess] -Eye Opening Spontaneous -Motor Obeys Commands -Verbal Incomprehensibl e [Total] -Coma Scale Total 12 12/23/24 1520 <Electronically signed by Shilpa Contreras MD> Cosigner Signature (if applicable): CC: ~ Signed [facility] Work Phone: 1(422) 602-302607-07-[address] [facility] 12-23-[address] [facility]07-07-2025 Progress note Author Paulino Henderson [facility] Note Date/Time December 23, 2024 2:46p m [facility] Medical Records Department [address] [place] [address] Progress Note 12/23/24 1445 MR#: [id number] Acct: [id number] Name: PEDRO PABLO SIERRA Rep #:[id number] : 1950 74 From: Paulino Henderson DO PCP: Dr. Daija Morton MD Status:ADM I N Location: [place] [address] Progress Note Patient with esophageal dysphagia. She [...] ASA of 3. Visit Charges Inpatient E&M: 86363 Subs Hosp L2 12/23/24 2866 <Electronically signed by Paulino Henderson DO> Paulino Henderson DO Cosigner Signature (if applicable): CC: ~ Signed [facility] Work Phone: 1(650) 251-723707-07-2025 Consult note Author Kyaw Borrego [facility] Note Date/Time December 23, 2024 2:02p m [facility] Medical Records Department [address] [place] [address] Pre-Anesthesia Evaluation 12/23/24 1400 MR#: [id number] Acct: [id number] Name: PEDRO PABLO SIERRA Rep #:[id number] : 1950 74 From: Kyaw Borrego MD PCP: Dr. Daija Morton MD Status:ADM I N Y Race: C Location: [place] [address] 1-1 ASA Classification* ASA Classification ASA Classification: [...] PEG placement. 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 - spirits model: Anesthesia History - spirits model Hx Hospitalization Yes 08/08/20 16:59 Any Problems [...] take am of surgery PONV PONV - spirits model: PONV - spirits model Female HX of Motion Sickness HX of N/V After Surgery Non-Smoker Duration of Surgery greater than 60 minutes Number of Risk Factors PONV Score Height & Weight Height & Weight: Anesthesia: Height & Weight Height 5 ft 8 in 12/23/24 09:50 Weight: 73 kg 12/23/24 09:50 Body Mass Index (BMI) 24.5 12/23/24 09:00 Respiratory Assessment Respiratory Assessment - spirits model: Respiratory Tract Infection Hx - spirits model Hx Respiratory Tract Infection No 12/23/24 09:15 STOP Sleep Apnea STOP Sleep Apnea - spirits model: STOP Sleep Apnea - spirits model Hx Hypertension Yes 12/23/24 09:06 Hx Sleep [...] Tobacco Use History Tobacco Use History - spirits model: Tobacco Use History - spirits model Tobacco Use Cigarettes 12/23/24 09:06 Smoking Status Current every day smoker 12/23/24 09:06 Hx Tobacco Use Yes 12/17/24 20:07 Years Smoking Packs Smoked per Day Smoking Cessation Date was within the last 15 years Hx Smoking Cessation Date Hx Smoking Cessation No 12/23/24 09:06 Counseling Hematologic Medial History Hematologic Hx - spirits model: 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 Specify any problems Hx of Preganancy in last 3 Months Nurse Filling Out Transfusion & Questions: Date: Time: Patient unable to answer at Yes 12/17/24 20:07 this time (ie. confused, unrespo /Reproduction History /Reproductive History - spirits model: /Reproductive Hx- spirits model Hx Now Gestational Age (in weeks): EDC: [...] mls @ 15 mls/hr 12/17/24 19:51 IV .[id number] PRN Saline Flush Sodium Chloride 250 mls @ 15 mls/hr 12/17/24 19:51 IV .[id number] PRN Additional IVPB Infusion Levetiracetam 1,000 mg in 100 mls @ 400 mls/hr 12/17/24 22:00 12/23/24 09:45 IV Infused Q12 LEON Infusion Pantoprazole Sodium 40 mg/ 100 mls @ 300 mls/hr 12/19/24 10:00 12/23/24 09:26 Sodium Chloride IV Infused Q24 LEON Infusion Lactated Ringer's 1,000 mls @ 75 mls/hr 12/18/24 15:30 12/23/24 13:10 IV 0 mls/hr .[id number] LEON Infusion Thiamine HCl 250 mg/ Sodium [...] 15 Mg Tablet PO Not Given QHS [facility] Ondansetron HCl 4 mg 12/17/24 18:52 Ondansetron 4 Mg/2 Ml Vial IV Q8H PRN PRN NAUSEA/VOMITING Pantoprazole Sodium 40 mg 12/18/24 10:00 12/18/24 09:52 Pantoprazole Sodium 40 Mg Tablet PO Not Given DAILY [facility] Senna/Docusate Sodium 1 tablet 12/17/24 18:52 Senna/Docusate Sodium 1 Tablet PO BID PRN PRN Constipation Sertraline HCl 100 mg 12/18/24 10:00 12/18/24 09:52 Sertraline 100 Mg Tablet PO Not Given DAILY [facility] Sodium Chloride 10 - 40 ml 12/17/24 19:51 12/23/24 13:09 0.9% Saline Lock 10 Ml Syringe IV 10 ml UD PRN Administration SALINE FLUSH Tamsulosin HCl 0.4 mg 12/18/24 22:00 Tamsulosin Hcl 0.4 Mg Capsule PO QHS [facility] PFSH Medical History Weakness Debility Failure to [...] Kyaw Vanessa Signature: Date CC: ~ Signed [facility] Work Phone: 1(379) 101-171907-07-2025 Hospital Discharge instructionsAdditional Instructions ADDITIONAL DISCHARGE INSTRUCTIONS/INFORMATION: [...] continued nutrition consultation and evaluation at the care home facility for ongoing assessments and alteration to [...] which appears recent baseline. [facility]: [facility]: 1(332) 365-131707-06-2025 Progress note Author Lisha Talamantes [facility] Note Date/Time December 22, 2024 3:35p m [facility] Medical Records Department [address] [place] [address] Progress Note - Hospitalist 12/22/24 1534 MR#: [id number] Acct: [id number] Name: PEDRO PABLO SIERRA R Rep #:[id number] : 1950 74 From: Lisha Talamantes DO PCP: Dr. Daija Morton MD Status:ADM I N Location: [place] [address] Hospitalist Note Extensive conversation with POA's at [...] Cosigner Signature (if applicable): CC: ~ Signed [facility] Work Phone: 1(738) 992-664607-06-2025 Progress note Author Lisha Albin [facility] Note Date/Time December 22, 2024 1:13p m [facility] Medical Records Department [address] [facility] [place] [address] Progress Note - Hospitalist 12/22/2433 MR#: [id number] Acct: [id number] Name: PEDRO PABLO SIERRA Rep #:[id number] : 1950 74 From: Lisha Talamantes DO PCP: Dr. Daija Morton MD Status:ADM I N Location: [place] [address] Reason for Visit Reason for Visit: facial [...] Full code Charges/Coding Visit Charges Inpatient E&M: 92889 Subs Hosp L2 NIHSS NIHSS Nursing Documentation NIHSS Nursing Documentation: NIHSS: Ischemic Stroke/TIA Start: 12/17/24 18:52 Text: For PCU Patients: NIH and Neuro Check every 4 Status: Active hours, PRN and with change in RN caregiver. Freq: Q12 Protocol: Activity Type Activity Date Activity User E-sign Co-sign Detail Recorded Client Recorded Date Recorded By Document 12/21/24 21:20 [id number] 12/21/24 21:19 12/21/24 21:20 NIH Stroke Scale [NIHSS] A score of 0 is "normal" or asymptomatic . Total possible score is [...] 14 Query Text:A score of 0 is "normal" or asymptomatic. Total possible score is 42 [...] Cosigner Signature (if applicable): CC: ~ Signed [facility] Work Phone: 1([phone]) [phone] Progress note Author Maya Talamantes [facility] Note Date/Time December 22, 2024 9:18a m [facility] Medical Records Department [address] [place] [address] Progress Note - Neurology 12/22/2414 MR#: [id number] Acct: [id number] Name: PEDRO PABLO SIERRA Rep #:[id number] : 1950 74 From: Maya Talamantes MD PCP: Dr. Daija Morton MD Status:ADM I N Location: [place] [address] Objective Data Objective Data Vital Signs: Vital [...] on keppra, PVD, and CDwho presented to [facility] ED on 12/17/2024 with dysarthria and [...] Continue daily anti-platelet med (Asa) for now. wax specialist will need AC for Afib stroke prevention [...] Date Recorded By Document 12/22/24 08:15 DS [id number] 12/22/24 08:19 DS 12/22/24 08:15 NIH Stroke Scale [NIHSS] A score of 0 is "normal" or asymptomatic . Total possible score is [...] 12 Query Text:A score of 0 is "normal" or asymptomatic. Total possible score is 42 [...] Cosigner Signature (if applicable): CC: ~ Signed [facility] Work Phone: 1(460) 814-612107-05-2025 Progress note Author Maya Talamantes [facility] Note Date/Time December 21, 2024 1:50p m [facility] Medical Records Department [address] [place] [address] Progress Note - Neurology 12/21/24 1336 MR#: [id number] Acct: [id number] Name: PEDRO PABLO SIERRA Rep #:[id number] : 1950 74 From: Maya Talamantes MD PCP: Dr. Daija Morton MD Status:ADM I N Location: [place] [address] Objective Data Objective Data Vital Signs: Vital [...] 75.1 H, Lymph % (Auto) 14.2 L, Sedgwick % (Auto) 8.5, Eos % (Auto) 1.2, [...] on keppra, PVD, and CDwho presented to [facility] ED on 12/17/2024 with dysarthria and [...] Continue daily anti-platelet med (Asa) for now. 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 Total possible score is [...] 13 Query Text:A score of 0 is "normal" or asymptomatic. Total possible score is 42 [...] Cosigner Signature (if applicable): CC: ~ Signed [facility] Work Phone: 1(237) 808-105007-05-2025 Progress note Author Lisha Talamantes [facility] Note Date/Time December 21, 2024 1:11p [facility] Medical Records Department [address] [place] [address] Progress Note - Hospitalist 12/21/24 1243 MR#: [id number] Acct: [id number] Name: PEDRO PABLO SIERRA Rep #:[id number] : 1950 74 From: Lisha Talamantes DO PCP: Dr. Daija Morton MD Status:ADM I N Location: [place] [address] Reason for Visit Reason for Visit: Aphasia/Facial [...] 75.1 H, Lymph % (Auto) 14.2 L, Sedgwick % (Auto) 8.5, Eos % (Auto) 1.2, [...] Full code Charges/Coding Visit Charges Inpatient E&M: 94099 Subs Hosp L2 NIHSS NIHSS Nursing Documentation NIHSS Nursing Documentation: NIHSS: Ischemic Stroke/TIA Start: 12/17/24 18:52 Text: For PCU Patients: NIH and Neuro Check every 4 Status: Active hours, PRN and with change in RN caregiver. Freq: Q12 Protocol: Activity Type Activity Date Activity User E-sign Co-sign Detail Recorded Client Recorded Date Recorded By Document 12/21/24 08:35 DS [id number] 12/21/24 11:09 DS 12/21/24 08:35 NIH Stroke Scale [NIHSS] A score of 0 is "normal" or asymptomatic . Total possible score is [...] 13 Query Text:A score of 0 is "normal" or asymptomatic. Total possible score is 42 [...] Cosigner Signature (if applicable): CC: ~ Signed [facility] Work Phone: 1(724) 917-634407-04-2025 Progress note Author Lisha Talamantes [facility] Note Date/Time December 20, 2024 12:05 pm [facility] Medical Records Department [address] [place] [address] Progress Note - Hospitalist 12/20/24 0717 MR#: [id number] Acct: [id number] Name: PEDRO PABLO SIERRA Shannan Rep #:[id number] : 1950 74 From: Lisha Talamantes DO PCP: Dr. Daija Morton MD Status:ADM I N Location: [place] [address] Reason for Visit Reason for Visit: Difficulty [...] 79.1 H, Lymph % (Auto) 9.9 L, Sedgwick % (Auto) 8.5, Eos % (Auto) 1.2, [...] T1 signal, consistent with subacute infarct, image . There are punctate foci of restricted diffusion [...] in the right maxillary sinus. Reading Location: [facility] Physical Exam Const alert, no apparent [...] Full code Charges/Coding Visit Charges Inpatient E&M: 08284 Subs Hosp L2 NIHSS NIHSS Nursing Documentation NIHSS Nursing Documentation: NIHSS: Ischemic Stroke/TIA Start: 12/17/24 18:52 Text: For PCU Patients: NIH and Neuro Check every 4 Status: Active hours, PRN and with change in RN caregiver. Freq: [id number] Protocol: Activity Type Activity Date Activity User E-sign Co-sign Detail Recorded Client Recorded Date Recorded By Document 12/20/24 05:53 MB [id number] 12/20/24 05:55 MB 12/20/24 05:53 NIH Stroke Scale [NIHSS] A score of 0 is "normal" or asymptomatic . Total possible score is [...] 12 Query Text:A score of 0 is "normal" or asymptomatic. Total possible score is 42 . ED: Notify Physician for NIHSS increase by > / = 3 points. Inpatient: RN or Physician to activate a stroke alert for NIHSS increase of > / = 3 points. Coma Scale [Assess] -Eye Opening Spontaneous -Motor Obeys Commands 12/20/24 1205 <Electronically signed by Lisha Talamantes DO> Cosigner Signature (if applicable): CC: ~ Signed [facility] Work Phone: 1(264) 740-456707-04-2025 Progress note Author René Reno [facility] Note Date/Time December 20, 2024 11:53 am [facility] Medical Records Department [address] [place] [address] Progress Note - Neurology 12/20/24 1107 MR#: [id number] Acct: [id number] Name: PEDRO PABLO SIERRA Rep #:[id number] : 1950 74 From: René Damon PCP: Dr. Daija Morton MD Status:ADM I N Location: [place] [address] Objective Data Objective Data Vital Signs: Vital [...] 79.1 H, Lymph % (Auto) 9.9 L, Sedgwick % (Auto) 8.5, Eos % (Auto) 1.2, [...] awaiting PEG tube on Monday, failed with DISTRICT SALES REPRESENTATIVE. No NGT. EEG Results Procedure Details [...] is controlled. Would prefer a DOAC for half-way AC. I would recommend re-evaluation of candiacy for AC despite the fall risk as the patient has an high risk of future embolic events ([id number] 10, HASBLED 4). His risk of a [...] goal <7, BP goal is 120/80 -recommend PT/OT/DISTRICT SALES REPRESENTATIVE consult. Will likely need PEG. consider NGT for alterative access in the meantime #seizure -recommend routine EEG as his aphasia does seen to be out of proportion to his infarct burden. would want to ensure no NCSE -it appears he was switched from CBZ to keppra during this admission. Ok to continue keppra machine precision etcher if tolerating without adverse effects or recurrent seizures. ] NIHSS NIHSS Nursing Documentation NIHSS Nursing Documentation: NIHSS: Ischemic Stroke/TIA Start: 12/17/24 18:52 Text: For PCU Patients: NIH and Neuro Check every 4 Status: Active hours, PRN and with change in RN caregiver. Freq: Q12 Protocol: Activity Type Activity Date Activity User E-sign Co-sign Detail Recorded Client Recorded Date Recorded By Document 12/20/24 09:41 [id number] 12/20/24 09:46 12/20/24 09:41 NIH Stroke Scale [NIHSS] A score of 0 is "normal" or asymptomatic . Total possible score is [...] 12 Query Text:A score of 0 is "normal" or asymptomatic. Total possible score is 42 [...] Cosigner Signature (if applicable): cc: ~* Signed [facility] Work Phone: 1(696) 713-156107-03-2025 Progress note Author Lisha Talamantes [facility] Note Date/Time December 19, 2024 4:09p m [facility] Medical Records Department [address] [place] [address] Progress Note - Hospitalist 12/19/24 0810 MR#: [id number] Acct: [id number] Name: PEDRO PABLO SIERRA Rep #:[id number] : 1950 74 From: Lisha Talamantes DO PCP: Dr. Daija Morton MD Status:ADM I N Location: [place] [address] Reason for Visit Reason for Visit: Difficulty [...] 81.3 H, Lymph % (Auto) 9.0 L, Sedgwick % (Auto) 6.6, Eos % (Auto) 1.9, [...] Morton Performed By: Susie Sands, GABY, RVT Brain MRI 12/18/24 17:46 IMPRESSION: There [...] sinus. Reading [facility] Physical Exam Const alert, no apparent [...] Full code Charges/Coding Visit Charges Inpatient E&M: 30879 Subs Hosp L2 NIHSS NIHSS Nursing Documentation NIHSS Nursing Documentation: NIHSS: Ischemic Stroke/TIA Start: 12/17/24 18:52 Text: For PCU Patients: NIH and Neuro Check every 4 Status: Active hours, PRN and with change in RN caregiver. Freq: [id number] Protocol: Activity Type Activity Date Activity User E-sign Co-sign Detail Recorded Client Recorded Date Recorded By Document 12/19/24 07:15 [id number] 12/19/24 07:43 12/19/24 07:15 NIH Stroke Scale [NIHSS] A score of 0 is "normal" or asymptomatic . Total possible score is [...] 11 Query Text:A score of 0 is "normal" or asymptomatic. Total possible score is 42 [...] Cosigner Signature (if applicable): CC: ~ Signed [facility] Work Phone: 1(617) 428-412107-02-2025 Progress note Author Lisha Talamantes [facility] Note Date/Time December 18, 2024 2:59p [facility] Medical Records Department [address] [place] [address] Progress Note - Hospitalist 12/18/24 1445 MR#: [id number] Acct: [id number] Name: PEDRO PABLO SIERRA Rep #:[id number] : 1950 74 From: Lisha Talamantes DO PCP: Dr. Daija Morton MD Status:ADM I NO Location: [place] [address] Reason for Visit Reason for Visit: Diagnoses [...] (Auto) 77.5 H, Lymph % (Auto) 12.1 L,Sedgwick % (Auto) 7.8, Eos % (Auto) 1.1, [...] as noted. Findings were called to the [facility] emergency department on 12/17/2024 at 4:35 p.m. Reading Location: [id number] Head/Neck CTA 12/17/24 15:53 IMPRESSION: Right ICA stenosis of 75%. Left ICA stenosis of 50%. Additional atherosclerosis as above. Biapical pulmonary scarring and emphysema. Reading Location: [id number] Chest X-Ray 12/17/24 15:54 IMPRESSION: Hyperaerated lungs which can suggest COPD. Stable scarring. Reading Location: [id number] Echocardiogram 12/18/24 07:27 Interpretation Summary Technically difficult [...] Full code Charges/Coding Visit Charges Inpatient E&M: 02189 Subs Hosp L2 NIHSS NIHSS Nursing Documentation NIHSS Nursing Documentation: NIHSS: Ischemic Stroke/TIA Start: 12/17/24 18:52 Text: For PCU Patients: NIH and Neuro Check every 4 Status: Active hours, PRN and with change in RN caregiver. Freq: [id number] Protocol: Activity Type Activity Date Activity User E-sign Co-sign Detail Recorded Client Recorded Date Recorded By Document 12/18/24 13:40 [id number] 12/18/24 13:43 12/18/24 13:40 NIH Stroke Scale [NIHSS] A score of 0 is "normal" or asymptomatic . Total possible score is [...] 11 Query Text:A score of 0 is "normal" or asymptomatic. Total possible score is 42 . ED: Notify Physician for NIHSS increase by > / = 3 points. Inpatient: RN or Physician to activate a stroke alert for NIHSS increase of > / = 3 points. Coma Scale [Assess] -Eye Opening Spontaneous -Motor Obeys Commands -Verbal Incomprehensibl e [Total] -Coma Scale Total 12 12/18/24 9474 <Electronically signed by Lisha Talamantes DO> Cosigner Signature (if applicable): CC: ~ Signed [facility] Work Phone: 1(715) 916-742007-02-2025 Consult note Author Amy Chun [facility] Note Date/Time December 18, 2024 1:13p m [facility] Medical Records Department [address] [place] [address] Consultation - Neurology 12/18/24 1249 MR#: [id number] Acct: [id number] Name: PEDRO PABLO SIERRA Rep #:[id number] : 1950 74 From: Aym Chun MD PCP: Dr. 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 Please call with questions HPI Consult Data Date of Consult: 12/18/24 HPI Narrative HPI Narrative: PEDRO PABLO SIERRA, is a 74 M who presents who presented to [facility] on 12/17/2024 with dysarthria and right-sided [...] stroke. Unfortunately, he was outside the window [facility]. He has history of A-fib and [...] stenosis of 50%, no other acute findings. [facility] Medical History Weakness Debility Failure to [...] History household members: family housing: other details: [employer] [facility] 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 Smoking Status: Current [...] (Auto) 77.5 H, Lymph % (Auto) 12.1 L,Sedgwick % (Auto) 7.8, Eos % (Auto) 1.1, [...] as noted. Findings were called to the [facility] emergency department on 12/17/2024 at 4:35 p.m. Reading Location: [id number] Head/Neck CTA 12/17/24 15:53 IMPRESSION: Right ICA stenosis of 75%. Left ICA stenosis of 50%. Additional atherosclerosis as above. Biapical pulmonary scarring and emphysema. Reading Location: [id number] Chest X-Ray 12/17/24 15:54 IMPRESSION: Hyperaerated lungs which can suggest COPD. Stable scarring. Reading Location: [id number] Active Medications Active Medications Active Medications: Current [...] 40 Mg Tablet PO Not Given QHS [facility] Carbamazepine 200 mg 12/17/24 22:00 12/18/24 09:52 Carbamazepine 200 Mg Cpmp.12hr PO Not Given BID [facility] Cholecalciferol 50 mcg 12/18/24 10:00 12/18/24 09:52 Cholecalciferol (Vit D3) 25 Mcg Tablet (1,000 Units) PO Not Given DAILY [facility] Clopidogrel Bisulfate 75 mg 12/18/24 10:00 12/18/24 09:52 Clopidogrel Bisulfate 75 Mg Tablet PO Not Given DAILY [facility] Finasteride 5 mg 12/18/24 10:00 12/18/24 09:52 Finasteride 5 Mg Tablet PO Not Given DAILY [facility] Gabapentin 100 mg 12/18/24 10:00 12/18/24 09:52 Gabapentin 100 Mg Capsule PO Not Given DAILY [facility] Hydralazine HCl 5 mg 12/17/24 18:52 Hydralazine 20 Mg/Ml Vial IV 12/18/24 18:52 Q30M PRN maintain BP parameters with HR <60 Sodium Chloride 250 mls @ 15 mls/hr 12/17/24 19:51 IV .[id number] PRN Saline Flush Sodium Chloride 250 mls @ 15 mls/hr 12/17/24 19:51 IV .[id number] PRN Additional IVPB Infusion Levetiracetam 1,000 mg [...] 15 Mg Tablet PO Not Given QHS [facility] Ondansetron HCl 4 mg 12/17/24 18:52 Ondansetron [...] 100 Mg Tablet PO Not Given DAILY [facility] Sodium Chloride 10 - 40 ml 12/17/24 19:51 12/18/24 10:33 0.9% Saline Lock 10 Ml Syringe IV 10 ml UD PRN Administration SALINE FLUSH Tamsulosin HCl 0.4 mg 12/18/24 22:00 Tamsulosin Hcl 0.4 Mg Capsule PO QHS [facility] NIHSS NIHSS Nursing Documentation NIHSS Nursing Documentation: NIHSS: Ischemic Stroke/TIA Start: 12/17/24 18:52 Text: For PCU Patients: NIH and Neuro Check every 4 Status: Active hours, PRN and with change in RN caregiver. Freq: [id number] Protocol: Activity Type Activity Date Activity User E-sign Co-sign Detail Recorded Client Recorded Date Recorded By Document 12/18/24 10:30 [id number] 12/18/24 10:48 12/18/24 10:30 NIH Stroke Scale [NIHSS] A score of 0 is "normal" or asymptomatic . Total possible score is [...] 10 Query Text:A score of 0 is "normal" or asymptomatic. Total possible score is 42 [...] and Inattention: 0 - No abnormality Total: 12/18/24 1313 <Electronically signed by Amy Chun MD> Cosigner Signature (if applicable): CC: Dr. Daija Morton MD~ Signed [facility] Work Phone: 1(310) 994-978007-01-2025 History and physical note Author Roman Patel [facility] Note Date/Time December 17, 2024 7:17p m [facility] Medical Records Department [address] [place] [address] H&P Exam - Hospitalist 12/17/24 1736 MR#: [id number] Acct: [id number] Name: PEDRO PABLO SIERRA Rep #:[id number] : 1950 74 From: Roman Dickerson andrea DO PCP: Dr. Daija Morton MD Status:ADM I NO Location: [address] HPI - General General Date of Admission: 12/17/24 Date of Service: 12/17/24 Chief Complaint: Dysarthria and right-sided facial droop HPI Narrative PEDRO PABLO SIERRA, is a 74 M who presented to [facility] ED on 12/17/2024 with dysarthria and [...] time. Will be admitted for further management. [facility] Medical History Weakness Debility Failure to [...] History household members: family housing: other details: [employer] [facility] [employer] 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 Smoking Status: Current [...] (Auto) 77.5 H, Lymph % (Auto) 12.1 L,Sedgwick % (Auto) 7.8, Eos % (Auto) 1.1, Baso % (Auto) 1.1 H, Absolute Neuts (auto) 6.6, Absolute Lymphs (auto) 1.03, Nucleated RBC % 0 Imaging Radiology Impression Brain CT 12/17/24 15:53 IMPRESSION: 1. Cerebral atrophy. 2. No evidence of acute intracranial pathology. 3. Other findings as noted. Findings were called to the [facility] emergency department on 12/17/2024 at 4:35 p.m. Reading Location: [id number] Head/Neck CTA 12/17/24 15:53 IMPRESSION: Right ICA stenosis of 75%. Left ICA stenosis of 50%. Additional atherosclerosis as above. Biapical pulmonary scarring and emphysema. Reading Location: [id number] Chest X-Ray 12/17/24 15:54 IMPRESSION: Hyperaerated lungs which can suggest COPD. Stable scarring. Reading Location: [id number] Assessment & Plan Assessment/Plan (1) Acute CVA (cerebrovascular accident): PLAN: Plan Patient is a 74-year-old male who presented to [facility] ED on 12/17/2024 with strokelike symptoms. [...] 75 minutes. Charges/Coding Visit Charges Inpatient E&M: 20734 Init Hosp L3 12/17/241916 <Electronically signed by Roman Patel DO> Cosigner Signature (if applicable): CC: Dr. Roman Patel DO; Dr. Daija Morton MD~ Signed [facility] Work Phone: 1(591) 180-136607-01-2025 Discharge summary Author Seth Pritchard [facility] Note Date/Time December 17, 2024 5:41p m [facility] Medical Records Department [address] [place] [address] Emergency Department Summary 12/17/24 MR#: [id number] Acct: [id number] Name: MARIELAPEDRO PABLO Rep #:[id number] : 1950 74 From: Seth Pritchard DO [...] was around noon according to at home. [facility] Medical History Weakness Debility Failure [...] History household members: family housing: other details: [employer] [facility] 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 Smoking Status: Current [...] 77.5 H Lymph % (Auto) 12.1 L Sedgwick % (Auto) 7.8 Eos % (Auto) 1.1 Baso % (Auto) 1.1 H Absolute Neuts (auto) 6.6 Absolute Lymphs (auto) 1.03 Nucleated RBC % 0 Radiography Diagnostic Testing: Clinical Impression(s) from Imaging Studies Brain CT 12/17/24 15:53 IMPRESSION: 1. Cerebral atrophy. 2. No evidence of acute intracranial pathology. 3. Other findings as noted. Findings were called to the [facility] emergency department on 12/17/2024 at 4:35 p.m. Reading Location: [id number] Head/Neck CTA 12/17/24 15:53 IMPRESSION: Right ICA stenosis of 75%. Left ICA stenosis of 50%. Additional atherosclerosis as above. Biapical pulmonary scarring and emphysema. Reading Location: [id number] Chest X-Ray 12/17/24 15:54 IMPRESSION: Hyperaerated lungs which can suggest COPD. Stable scarring. Reading Location: [id number] Discharge Plan Triage Chief Complaint: Stroke Alert [...] MD [Primary Care Provider] - Print Language: Filipino Disposition Disposition: Acute Care Hospital [facility] What to do if you have Problems For any increased pain, shortness of breath, bleeding, nausea or vomiting, chestpain, or any unexpected problems, contact your Primary Care Provider. Call [facility] ([phone]) or report to the closest Emergency Room. Call 911 if necessary. 12/17/24 9286 <Electronically signed by Seth Pritchard DO> Cosigner Signature (if applicable): CC: Dr. Daija Morton MD ~ Signed [facility] Work Phone: 1([phone]) 108-161507-01-2025 Radiology Diagnostic study [facility]07-01-2025 Radiology Diagnostic study [facility] Work Phone: [phone]) 671-992007-01-2025 Radiology Diagnostic study [facility]07-01-2025 Telephone encounter Note* Telephone Encounter - Kelly Zelaya RN - 12/17/2024 2:20 PM EDT Frank REDD [facility] called in to give an update [...] would like to use. Kelly Zelaya RN [facility]07-01-2025 Discharge summary Author Seth Pritchard [facility] Note Date/Time December 17, 2024 5:41p [facility] Medical Records Department [address] [place] [address] Emergency Department Summary 12/17/24 MR#: [id number] Acct: [id number] Name: PEDRO PABLO SIERRA Rep #:[id number] : 1950 74 From: Seth Pritchard DO [...] was around noon according to at home. [facility] Medical History Weakness Debility Failure [...] 77.5 H Lymph % (Auto) 12.1 L Sedgwick % (Auto) 7.8 Eos % (Auto) 1.1 Baso % (Auto) 1.1 H Absolute Neuts (auto) 6.6 Absolute Lymphs (auto) 1.03 Nucleated RBC % 0 Radiography Diagnostic Testing: Clinical Impression(s) from Imaging Studies Brain CT 12/17/24 15:53 IMPRESSION: 1. Cerebral atrophy. 2. No evidence of acute intracranial pathology. 3. Other findings as noted. Findings were called to the [facility] emergency department on 12/17/2024 at 4:35 p.m. Reading Location: [id number] Head/Neck CTA 12/17/24 15:53 IMPRESSION: Right ICA stenosis of 75%. Left ICA stenosis of 50%. Additional atherosclerosis as above. Biapical pulmonary scarring and emphysema. Reading Location: [id number] Chest X-Ray 12/17/24 15:54 IMPRESSION: Hyperaerated lungs which can suggest COPD. Stable scarring. Reading Location: [id number] Discharge Plan Triage Chief Complaint: Stroke Alert [...] MD [Primary Care Provider] - Print Language: Filipino Disposition Disposition: Acute Care Hospital [facility] What to do if you have Problems For any increased pain, shortness of breath, bleeding, nausea or vomiting, chestpain, or any unexpected problems, contact your Primary Care Provider. Call [facility] ([phone]) or report to the closest Emergency Room. Call 911 if necessary. 12/17/24 2168 <Electronically signed by Seth Pritchard DO> Cosigner Signature (if applicable): CC: Dr. Daija Morton MD ~ Signed [facility] Work Phone: 1(870) 355-296306-30-2025 Discharge summary Author Lisha Talamantes [facility] Note Date/Time December 16, 2024 12:5 3pm [facility] Medical Records Department [address] [place] [address] Discharge Summary 12/16/24 1137 MR#: [id number] Acct: [id number] Name: PEDRO PABLO SIERRA Rep #:[id number] : 1950 74 From: Lisha Talamantes DO PCP: Dr. Daija Morton MD Status:ADM I N Location: [place] [address] Providers Date of Admission: 12/13/24 Date of [...] male who presented to the emergency departmentat [facility] on 12/13/2024 with shortness of breath and wheezing. He has a history of chronic hypoxic respiratory failure requiring 2 Lat baseline [id number]-aua-hbujy. Patient reported that about the last 2 [...] Self Care Charges/Coding Visit Charges Inpatient E&M: 82050 Disch Hosp >30min 12/16/24 1253 <Electronically signed by Lisha Talamantes DO> Cosigner Signature (if applicable): CC: Dr. Daija Morton MD; Dr. Lisha Talamantes DO~ Signed [facility] Work Phone: 1(817) 381-307406-30-2025 Hospital Discharge instructionsAdditional Instructions 1. Avoid being out in the heat and humidity. Try to be in an air conditioned environment as much as possible. If you must go out try to do so in the am or pm Date of Discharge: 12/16/24[facility] Work Phone: 1(960) 917-707306-30-2025 [facility]06-30-2025 Telephone encounter Note* Telephone Encounter - [...] Natalie Flowers December 16, 2024 8:47 AM [facility]06-30-2025 Miscellaneous Notes* Telephone Encounter - Natalie Gross [...] 16, 2024 8:47 AM documented in [facility]06-29-2025 Progress note Author Lisha Talamantes [facility] Note Date/Time December 15, 2024 1:21 pm [facility] Medical Records Department [address] [place] [address] Progress Note - Hospitalist 12/15/24 0743 MR#: [id number] Acct: [id number] Name: PEDRO PABLO SIERRA Rep #:[id number] : 1950 74 From: Lisha Talamantes DO PCP: Dr. Daija Morton MD Status:ADM I N Location: [place] [address] Reason for Visit Reason for Visit: Shortness of breath Subjective Subjective Patient states he short of breath and wants his home inhalers. We discussed that he gets his albuterol via the inhaler and the nebulizer relatively acute oblique however when he short of breath it may be better than via nebulizer. Patient states his breathing is "terrible however his oxygenation status has improved and [...] 83.3 H, Lymph % (Auto) 9.8 L, Sedgwick % (Auto) 6.3, Eos % (Auto) 0.0, [...] Full code Charges/Coding Visit Charges Inpatient E&M: 66272 Subs Hosp L2 12/15/24 1321 <Electronically signed by Lisha Talamantes DO> Cosigner Signature (if applicable): CC: ~ Signed [facility] Work Phone: 1(145) 927-676206-28-2025 Progress note Author Lisha Talamantes [facility] Note Date/Time December 14, 2024 3:55 pm [facility] Medical Records Department [address] [place] [address] Progress Note - Hospitalist 12/14/24809 MR#: [id number] Acct: [id number] Name: PEDRO PABLO SIERRA Rep #:[id number] : 1950 74 From: Lisha Talamantes DO PCP: Dr. Daija Morton MD Status:ADM I N Location: [place] [address] Reason for Visit Reason for Visit: Shortness [...] % (Auto) 67.3, Lymph % (Auto) 19.5, Sedgwick% (Auto) 8.9, Eos % (Auto) 3.0, Baso [...] 79.3 H, Lymph % (Auto) 15.0 L, Sedgwick % (Auto) 5.3, Eos % (Auto) 0.0, [...] significant change since last exam. Reading Location: [facility] Physical Exam Const alert, oriented [...] Full code Charges/Coding Visit Charges Inpatient E&M: 88422 Subs Hosp L2 12/14/24 8828 <Electronically signed by Lisha Talamantes DO> Cosigner Signature (if applicable): CC: ~ Signed [facility] Work Phone: 1(887) 975-525706-28-2025 History and physical note Author Shilpa Contreras [facility] Note Date/Time December 14, 2024 12:2 3am [facility] Medical Records Department [address] [place] [address] H&P Exam - Hospitalist 12/13/241948 MR#: [id number] Acct: [id number] Name: PEDRO PABLO SIERRA Rep #:[id number] : 1950 74 From: Shilpa Contreras MD PCP: Dr. Daija Morton MD Status:ADM I N Location: [place] [address] HPI - General General Date of Admission: [...] PJ, Tobacco use who presents to the [facility] ED on 12/13/2024 with history of [...] component requested ABG and will trial BiPAP. [facility] Medical History Weakness Debility Failure to [...] % (Auto) 67.3, Lymph % (Auto) 19.5, Sedgwick% (Auto) 8.9, Eos % (Auto) 3.0, Baso [...] significant change since last exam. Reading Location: [id number] Assessment & Plan Assessment/Plan (1) COPD exacerbation: [...] PJ, Tobacco use who presents to the [facility] ED on 12/13/2024 with history of [...] 0.9. #16. CODE status: Patient healthcare power employee benefits attorney and living will are not in [...] 16 minutes. Charges/Coding Visit Charges Inpatient E&M: 37552 Init Hosp L3 Procedures Hospitalists Procedures: 24432 Advncd Care Plan 30 Min 12/13/242049 <Electronically [...] MD; Dr. Daija Morton MD ~* Signed [facility] Work Phone: 1(434) 198-636906-28-2025 Discharge summary Author Charis Walker [facility] Note Date/Time December 13, 2024 10:4 1pm [facility] Medical Records Department [address] [facility] [place] [address] Emergency Department Summary 12/13/24 MR#: [id number] Acct: [id number] Name: PEDRO PABLO SIERRA Rep #:[id number] : 1950 74 From: Charis Walker DO PCP: Dr. Daija Morton MD Status:ADM I N Location: [place] [address] HPI History of Present Illness Chief Complaint: [...] care for a time 1 week ago. [facility] Medical History Compression fx, lumbar [...] % (Auto) 67.3 Lymph % (Auto) 19.5 Sedgwick % (Auto) 8.9 Eos % (Auto) 3.0 [...] significant change since last exam. Reading Location: [id number] 1 view chest x-ray obtained interpreted by [...] MD [Primary Care Provider] - Print Language: Filipino Disposition Disposition: Acute Care Hospital [facility] What to do if you have Problems For any increased pain, shortness of breath, bleeding, nausea or vomiting, chestpain, or any unexpected problems, contact your Primary Care Provider. Call [facility] ([phone]) or report to the closest Emergency Room. Call 911 if necessary. 12/13/242240 <Electronically signed by Charis Walker DO> Cosigner Signature (if applicable): CC: Dr. Daija Morton MD ~ Signed [facility] Work Phone: 1(227) 330-489206-27-2025 Evaluation note* Diagnosis Onset Date Resolution Status [...] 2:58pm Facial droop deleted December 18 2:58pm [facility] Work Phone: 1(778) 191-350406-27-2025 Evaluation note* Diagnosis Onset Date Resolution Status [...] Bronchospasm, acute acute January 05, 2025 1:36pm [facility] Work Phone: 1(219) 816-975806-27-2025 Evaluation note* Diagnosis Onset Date Resolution Status [...] tube malfunction acute January 05, 2025 1:36pm [facility] Work Phone: 1(236) 446-256406-27-2025 Evaluation note* Diagnosis Onset Date Resolution Status [...] tube malfunction inactive January 05, 2025 1:36pm [facility] Work Phone: 1(337) 967-172406-27-2025 Evaluation note* Diagnosis Onset Date Resolution Status [...] 8:48am Seizure disorder acute January 232024 10:27am [facility] Work Phone: 1(231) 230-828906-27-2025 Evaluation note* Diagnosis Onset Date Resolution Status [...] 23, 2025 10:27am Current use of senior living anticoagulation acute January 23, 2025 10:27am CVA (cerebral vascular accident) acu te January 23, 2025 10:27am Debility acute January 23 10:27am History of atrial fibrillation acute January 23, 2025 10:27am Seizure disorder acute January 232024 10:27am Multiple falls inactive January 10:27am [facility] Work Phone: 1([phone] 282-971806-27-2025 History and physical note [facility] Medical Records Department [address] [place] [address] H&P Exam - Hospitalist 12/[birth year]/241949 MR#: [id number] Acct: [id number] Name: PEDRO PABLO SIERRA Rep #:[id number] : 1950 74 From: Shilpa Contreras MD PCP: Dr. Daija Morton MD Status:ADM I N Location: [place] [address] HPI - General General Date of Admission: [...] PJ, Tobacco use who presents to the [facility] ED on 12/13/2024 with history of [...] ED included T90.3, heart rate 65, BP zxddwnjxe412/90, respiratory rate 22, initially under percent on [...] component requested ABG and will trial BiPAP. [facility] Medical History Weakness Debility Failure to [...] Neut% (Auto) 67.3, Lymph % (Auto) 19.5, Sedgwick% (Auto) 8.9, Eos % (Auto) 3.0, Baso [...] significant change since last exam. Reading Location: [facility] Assessment & Plan Assessment/Plan (1) [...] PJ, Tobacco use who presents to the [facility] ED on 12/13/2024 with history of [...] 0.9. #16. CODE status: Patient healthcare power employee benefits attorney and living will are not in [...] 16 minutes. Charges/Coding Visit Charges Inpatient E&M: 00515 Init Hosp L3 Procedures Hospitalists Procedures: 27616 Advncd Care Plan 30 Min 12/13/242049 Cosigner Signature (if applicable): CC: Dr. Shilpa Contreras MD; Dr. Daija Morton MD~ Signed [facility]06-27-2025 Radiology Diagnostic study note [facility] Imaging Services [address] [place] [address] Chest 1 View (Portable) MR#: [id number] Acct: [id number] Name: PEDRO PABLO SIERRA Rep #: [id number] : 1950 M 74 From: Annette Roa MD PCP: Dr. Daija Morton MD Status: REG E R Study:Chest 1 View (Portable) Date of Exam: 12/13/24 Exam# [id number] Ordering Dr: Ame Walker DO PROCEDURE: CHEST [...] significant change since last exam. Reading Location: [id number] CC: Dr. Daija Morton MD; Dr. Charis Walker DO ~ Licensed Staff Mft: Signed [facility]06-27-2025 Telephone encounter Note* Telephone Encounter - Debby Saldana LPN - 12/13/2024 3:00 PM EDT Lit from [facility] calling asking for copy of office visit notes to be faxed to [phone], regarding nebulizer. Printed notes and faxed as requested. [facility]06-27-2025 Miscellaneous Notes* Telephone Encounter - Debby Saldana LPN - 12/13/2024 3:00 PM EDT Lit from [facility] calling asking for copy of office visit notes to be faxed to [phone], regarding nebulizer. Printed notes and faxed as requested. documented in this encounterRiverview [facility] Institute06-27-2025 Telephone encounter Note * Telephone Encounter - Bing Delgado RN - 12/13/2024 2:29 PM EDT Faxed orders to [facility] per brother request at fax # [phone]. Confirmation received. [facility]06-27-2025 Miscellaneous Notes* Telephone Encounter - Bing Delgado RN - 12/13/2024 2:29 PM EDT Faxed orders to [facility] per brother request at fax # [phone]. Confirmation received. * Telephone Encounter - Anjel Braga APRN.CNP - 12/13/2024 12:40 PM EDT Orders placed. Please fax as requested Thank you Anjel Braga APRN.CNP * Telephone Encounter - Debby Saldana LPN - 12/13/2024 9:14 AM EDT Patient brother Emiliano calling [facility] does not carry Nebulizer. Asking for Nebulizer order to be faxed to [facility] at [phone]. Brother asking for portable oxygen tank order to faxed to [facility]. Pending both orders needs completed, diagnosis. Please advise documented in this encounterRiver[facility] Institute06-27-2025 Telephone encounter Note * Telephone Encounter - Anjel Braga APRN.CNP - 12/13/2024 12:40 PM EDT Orders placed. Please fax as requested Thank you Anjel Braga APRN.LEGAL SERVICES MANAGER [facility]06-27-2025 Telephone encounter Note* Telephone Encounter - Debby Saldana LPN - 12/13/2024 9:14 AM EDT Patient brother Emiliano myers [facility] does not carry Nebulizer. Asking for Nebulizer order to be faxed to [facility] at [phone]. Brother asking for portable oxygen tank order to faxed to [facility]. Pending both orders needs completed, diagnosis. Please advise [facility]06-27-2025 Telephone encounter Note* Telephone Encounter - Natalie [...] Natalie Flowers December 13, 2024 8:46 AM [facility]06-27-2025 Miscellaneous Notes* Telephone Encounter - Natalie Gross [...] 13, 2024 8:46 AM documented in this encounterRiverview Health Institute06-26-2025 History of Present illness Narrative* Susan Salguero [...] PATIENT PRESENTS WITH AN IMPLANTABLE OR ATTACHED CAPACITY PLANNING ANALYST: No RADIOLOGY DEPARTMENT: General X-ray: Exam(s) Completed: Chest X-Ray PERIPHERAL IV DATA: Not applicable SIGNED BY: RT Eliot(Shannan) December 12, 2024 3:18 PM documented in this encounterRiverview Health Institute06-26-2025 History of Present illness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 Due to occlusion of this repair 2 days later, he returned to the OR and underwent a Left EIA to ENROLLMENT MANAGEMENT VICE PRESIDENT bypass with 7mm PTFE distally with retrograde [...] the last week. 2013. Went to the [facility] ER and was observed his Hb is [...] for aorto-occlusive critical limb ischemia, CAD previous IL, DM, HTN, DLD, COPD, UC/IBD on sulfasalazine [...] Neurotoin BID at home Patient started on [place] postoperatively, pain controlled at time of discharge. [...] of this encounter (statuses as of 08/21/2023) [facility]02-25-2022 Miscellaneous Notes* Telephone Encounter - Anjel Braga [...] you. Bessy Freed RN documented in this encounterRiverview Health Institute05-27-2021 Miscellaneous Notes* Telephone Encounter - Daija Morton [...] coumadin dose. She is going to call [facility], to see if they are bringing patient new pill pack. Reports she was going to discharge patient today, but isgoing to talk to her drawing supervisor about keeping patient on [facility] for one more visit. * Telephone Encounter - Bing Delgado RN - 11/12/2020 12:50 PM EDT [facility]- reports patient's new coumadin instructions have not been updated to [facility]. Attempted to call [facility]- they are closed for lunch. Will try again when they re-open at 1 pm. documented in this encounterRiverview Health Institute05-26-2021 History of Present illness Narrative* Nahed Aponte [...] 11, 2020 10:32 AM documented in this encounterRiverview Health Institute04-24-2020 History of Past illness Narrative* Problem Noted [...] Neurotoin BID at home Patient started on [place] postoperatively, pain controlled at time of discharge. [...] of this encounter (statuses as of 09/14/2021) [facility] History of Past illness Narrative* Problem Noted [...] Neurotoin BID at home Patient started on [place] postoperatively, pain controlled at time of discharge. [...] of this encounter (statuses as of 09/15/2021) [facility] History of Past illness Narrative* Problem Noted [...] Neurotoin BID at home Patient started on [place] postoperatively, pain controlled at time of discharge. [...] of this encounter (statuses as of 09/15/2021) [facility] History of Past illness Narrative* Problem Noted [...] Neurotoin BID at home Patient started on [place] postoperatively, pain controlled at time of discharge. [...] of this encounter (statuses as of 09/16/2021) [facility] History of Past illness Narrative* Problem Noted [...] Neurotoin BID at home Patient started on [place] postoperatively, pain controlled at time of discharge. [...] of this encounter (statuses as of 09/16/2021) [facility] History of Past illness Narrative* Problem Noted [...] Neurotoin BID at home Patient started on [place] postoperatively, pain controlled at time of discharge. [...] of this encounter (statuses as of 09/17/2021) [facility] History of Past illness Narrative* Problem Noted [...] Neurotoin BID at home Patient started on [place] postoperatively, pain controlled at time of discharge. [...] of this encounter (statuses as of 09/17/2021) [facility] History of Past illness Narrative* Problem Noted Date Resolved Date Hypophosphatemia 10/11/2019 10/13/2019 Overview: Replace prn Temporal arteritis 11/17/2017 11/09/2018 Seizure disorder 07/03/2017 07/10/2017 Hematoma, postoperative 07/07/2014 02/23/20 15 Overview: 07/07/2014 Left arm duplex LEFT [...] Neurotoin BID at home Patient started on [place] postoperatively, pain controlled at time of discharge. Ischemia of extremity 10/14/2013 02/10/2014 Overview: - admitted to [facility] vascular surgery twice in October 2013, s/p left femoral endarterectomy with patch, US guided access RCFA, L profundaplasty, RUFUS recanalization & stenting, CRISPIN stenting on 5/7/14 for aorto-occlusive critical limb ischemia - S/p [...] of this encounter (statuses as of 09/17/2021) [facility] History of Past illness Narrative* Problem Noted [...] Neurotoin BID at home Patient started on [place] postoperatively, pain controlled at time of discharge. [...] of this encounter (statuses as of 09/18/2021) [facility] History of Past illness Narrative* Problem Noted [...] Neurotoin BID at home Patient started on [place] postoperatively, pain controlled at time of discharge. [...] of this encounter (statuses as of 09/20/2021) [facility] History of Past illness Narrative* Problem Noted [...] Neurotoin BID at home Patient started on [place] postoperatively, pain controlled at time of discharge. [...] of this encounter (statuses as of 09/21/2021) [facility] of Past illness Narrative* Problem Noted [...] Neurotoin BID at home Patient started on [place] postoperatively, pain controlled at time of discharge. [...] of this encounter (statuses as of 09/22/2021) [facility] of Past illness Narrative* Problem Noted [...] Neurotoin BID at home Patient started on [place] postoperatively, pain controlled at time of discharge. [...] of this encounter (statuses as of 09/29/2021) [facility] of Past illness Narrative* Problem Noted [...] Neurotoin BID at home Patient started on [place] postoperatively, pain controlled at time of discharge. [...] of this encounter (statuses as of 10/04/2021) [facility] History of Past illness Narrative* Problem Noted [...] Neurotoin BID at home Patient started on [place] postoperatively, pain controlled at time of discharge. [...] of this encounter (statuses as of 10/06/2021) [facility] of Past illness Narrative* Problem Noted [...] Neurotoin BID at home Patient started on [place] postoperatively, pain controlled at time of discharge. [...] of this encounter (statuses as of 10/07/2021) [facility] History of Past illness Narrative* Problem Noted [...] Neurotoin BID at home Patient started on [place] postoperatively, pain controlled at time of discharge. [...] of this encounter (statuses as of 10/07/2021) [facility] History of Past illness Narrative* Problem Noted [...] Neurotoin BID at home Patient started on [place] postoperatively, pain controlled at time of discharge. [...] of this encounter (statuses as of 10/08/2021) [facility] History of Past illness Narrative* Problem Noted [...] Neurotoin BID at home Patient started on [place] postoperatively, pain controlled at time of discharge. [...] of this encounter (statuses as of 10/13/2021) [facility] History of Past illness Narrative* Problem Noted [...] Neurotoin BID at home Patient started on [place] postoperatively, pain controlled at time of discharge. [...] of this encounter (statuses as of 10/13/2021) [facility] History of Past illness Narrative* Problem Noted [...] Neurotoin BID at home Patient started on [place] postoperatively, pain controlled at time of discharge. [...] of this encounter (statuses as of 10/14/2021) [facility] History of Past illness Narrative* Problem Noted [...] Neurotoin BID at home Patient started on [place] postoperatively, pain controlled at time of discharge. [...] of this encounter (statuses as of 10/18/2021) [facility] History of Past illness Narrative* Problem Noted [...] Neurotoin BID at home Patient started on [place] postoperatively, pain controlled at time of discharge. [...] of this encounter (statuses as of 10/21/2021) [facility] History of Past illness Narrative* Problem Noted [...] Neurotoin BID at home Patient started on [place] postoperatively, pain controlled at time of discharge. [...] of this encounter (statuses as of 10/21/2021) [facility] History of Past illness Narrative* Problem Noted [...] Neurotoin BID at home Patient started on [place] postoperatively, pain controlled at time of discharge. [...] of this encounter (statuses as of 10/22/2021) [facility] History of Past illness Narrative* Problem Noted [...] Neurotoin BID at home Patient started on [place] postoperatively, pain controlled at time of discharge. [...] of this encounter (statuses as of 10/22/2021) [facility] History of Past illness Narrative* Problem Noted [...] Neurotoin BID at home Patient started on [place] postoperatively, pain controlled at time of discharge. [...] of this encounter (statuses as of 10/22/2021) [facility] History of Past illness Narrative* Problem Noted [...] Neurotoin BID at home Patient started on [place] postoperatively, pain controlled at time of discharge. [...] of this encounter (statuses as of 10/27/2021) [facility] History of Past illness Narrative* Problem Noted [...] Neurotoin BID at home Patient started on [place] postoperatively, pain controlled at time of discharge. [...] of this encounter (statuses as of 11/08/2021) [facility] History of Past illness Narrative* Problem Noted [...] Neurotoin BID at home Patient started on [place] postoperatively, pain controlled at time of discharge. [...] of this encounter (statuses as of 11/08/2021) [facility] History of Past illness Narrative* Problem Noted [...] Neurotoin BID at home Patient started on [place] postoperatively, pain controlled at time of discharge. [...] of this encounter (statuses as of 11/11/2021) [facility] History of Past illness Narrative* Problem Noted [...] Neurotoin BID at home Patient started on [place] postoperatively, pain controlled at time of discharge. [...] of this encounter (statuses as of 11/12/2021) [facility] History of Past illness Narrative* Problem Noted [...] Neurotoin BID at home Patient started on [place] postoperatively, pain controlled at time of discharge. [...] of this encounter (statuses as of 11/16/2021) [facility] History of Past illness Narrative* Problem Noted [...] Neurotoin BID at home Patient started on [place] postoperatively, pain controlled at time of discharge. [...] of this encounter (statuses as of 11/17/2021) [facility] History of Past illness Narrative* Problem Noted [...] Neurotoin BID at home Patient started on [place] postoperatively, pain controlled at time of discharge. [...] of this encounter (statuses as of 11/17/2021) [facility] History of Past illness Narrative* Problem Noted [...] Neurotoin BID at home Patient started on [place] postoperatively, pain controlled at time of discharge. [...] of this encounter (statuses as of 11/18/2021) [facility] History of Past illness Narrative* Problem Noted [...] Neurotoin BID at home Patient started on [place] postoperatively, pain controlled at time of discharge. [...] of this encounter (statuses as of 11/19/2021) [facility] History of Past illness Narrative* Problem Noted [...] Neurotoin BID at home Patient started on [place] postoperatively, pain controlled at time of discharge. [...] of this encounter (statuses as of 11/19/2021) [facility] History of Past illness Narrative* Problem Noted [...] Neurotoin BID at home Patient started on [place] postoperatively, pain controlled at time of discharge. [...] of this encounter (statuses as of 11/26/2021) [facility] History of Past illness Narrative* Problem Noted [...] Neurotoin BID at home Patient started on [place] postoperatively, pain controlled at time of discharge. [...] of this encounter (statuses as of 11/30/2021) [facility] History of Past illness Narrative* Problem Noted [...] Neurotoin BID at home Patient started on [place] postoperatively, pain controlled at time of discharge. [...] of this encounter (statuses as of 12/03/2021) [facility] History of Past illness Narrative* Problem Noted [...] Neurotoin BID at home Patient started on [place] postoperatively, pain controlled at time of discharge. [...] of this encounter (statuses as of 12/07/2021) [facility] History of Past illness Narrative* Problem Noted [...] Neurotoin BID at home Patient started on [place] postoperatively, pain controlled at time of discharge. [...] of this encounter (statuses as of 01/14/2022) [facility] History of Past illness Narrative* Problem Noted [...] Neurotoin BID at home Patient started on [place] postoperatively, pain controlled at time of discharge. [...] of this encounter (statuses as of 01/14/2022) [facility] History of Past illness Narrative* Problem Noted [...] Neurotoin BID at home Patient started on [place] postoperatively, pain controlled at time of discharge. [...] of this encounter (statuses as of 01/25/2022) [facility] History of Past illness Narrative* Problem Noted [...] Neurotoin BID at home Patient started on [place] postoperatively, pain controlled at time of discharge. [...] of this encounter (statuses as of 01/28/2022) [facility] History of Past illness Narrative* Problem Noted [...] Neurotoin BID at home Patient started on [place] postoperatively, pain controlled at time of discharge. [...] of this encounter (statuses as of 01/31/2022) [facility] History of Past illness Narrative* Problem Noted [...] Neurotoin BID at home Patient started on [place] postoperatively, pain controlled at time of discharge. [...] of this encounter (statuses as of 01/31/2022) [facility] History of Past illness Narrative* Problem Noted [...] Neurotoin BID at home Patient started on [place] postoperatively, pain controlled at time of discharge. [...] of this encounter (statuses as of 01/31/2022) [facility] History of Past illness Narrative* Problem Noted [...] Neurotoin BID at home Patient started on [place] postoperatively, pain controlled at time of discharge. [...] of this encounter (statuses as of 02/03/2022) [facility] History of Past illness Narrative* Problem Noted [...] Neurotoin BID at home Patient started on [place] postoperatively, pain controlled at time of discharge. [...] of this encounter (statuses as of 02/24/2022) [facility] History of Past illness Narrative* Problem Noted [...] Neurotoin BID at home Patient started on [place] postoperatively, pain controlled at time of discharge. [...] of this encounter (statuses as of 02/24/2022) [facility] History of Past illness Narrative* Problem Noted [...] Neurotoin BID at home Patient started on [place] postoperatively, pain controlled at time of discharge. [...] of this encounter (statuses as of 03/02/2022) [facility] History of Past illness Narrative* Problem Noted [...] Neurotoin BID at home Patient started on [place] postoperatively, pain controlled at time of discharge. [...] of this encounter (statuses as of 03/10/2022) [facility] History of Past illness Narrative* Problem Noted [...] Neurotoin BID at home Patient started on [place] postoperatively, pain controlled at time of discharge. [...] of this encounter (statuses as of 03/10/2022) [facility] History of Past illness Narrative* Problem Noted [...] Neurotoin BID at home Patient started on [place] postoperatively, pain controlled at time of discharge. [...] of this encounter (statuses as of 03/11/2022) [facility] History of Past illness Narrative* Problem Noted [...] Neurotoin BID at home Patient started on [place] postoperatively, pain controlled at time of discharge. [...] of this encounter (statuses as of 03/11/2022) [facility] History of Past illness Narrative* Problem Noted [...] Neurotoin BID at home Patient started on [place] postoperatively, pain controlled at time of discharge. [...] of this encounter (statuses as of 03/18/2022) [facility] History of Past illness Narrative* Problem Noted [...] Neurotoin BID at home Patient started on [place] postoperatively, pain controlled at time of discharge. [...] of this encounter (statuses as of 03/24/2022) [facility] History of Past illness Narrative* Problem Noted [...] Neurotoin BID at home Patient started on [place] postoperatively, pain controlled at time of discharge. [...] of this encounter (statuses as of 04/01/2022) [facility] History of Past illness Narrative* Problem Noted [...] Neurotoin BID at home Patient started on [place] postoperatively, pain controlled at time of discharge. [...] of this encounter (statuses as of 06/19/2022) [facility] History of Past illness Narrative* Problem Noted [...] Neurotoin BID at home Patient started on [place] postoperatively, pain controlled at time of discharge. [...] of this encounter (statuses as of 08/02/2022) [facility] History of Past illness Narrative* Problem Noted [...] for aorto-occlusive critical limb ischemia, CAD previous IL, DM, HTN, DLD, COPD, UC/IBD on sulfasalazine [...] Neurotoin BID at home Patient started on [place] postoperatively, pain controlled at time of discharge. [...] of this encounter (statuses as of 08/25/2022) [place] [address]-24-2020 History of Past illness Narrative* Problem Noted [...] for aorto-occlusive critical limb ischemia, CAD previous IL, DM, HTN, DLD, COPD, UC/IBD on sulfasalazine [...] Neurotoin BID at home Patient started on [place] postoperatively, pain controlled at time of discharge. [...] of this encounter (statuses as of 08/27/2022) [facility] History of Past illness Narrative* Problem Noted [...] for aorto-occlusive critical limb ischemia, CAD previous IL, DM, HTN, DLD, COPD, UC/IBD on sulfasalazine [...] Neurotoin BID at home Patient started on [place] postoperatively, pain controlled at time of discharge. [...] of this encounter (statuses as of 08/27/2022) [facility] History of Past illness Narrative* Problem Noted [...] for aorto-occlusive critical limb ischemia, CAD previous IL, DM, HTN, DLD, COPD, UC/IBD on sulfasalazine [...] Neurotoin BID at home Patient started on [place] postoperatively, pain controlled at time of discharge. [...] of this encounter (statuses as of 08/29/2022) [facility] History of Past illness Narrative* Problem Noted [...] for aorto-occlusive critical limb ischemia, CAD previous IL, DM, HTN, DLD, COPD, UC/IBD on sulfasalazine [...] Neurotoin BID at home Patient started on [place] postoperatively, pain controlled at time of discharge. [...] of this encounter (statuses as of 09/02/2022) [facility] History of Past illness Narrative* Problem Noted [...] for aorto-occlusive critical limb ischemia, CAD previous IL, DM, HTN, DLD, COPD, UC/IBD on sulfasalazine [...] Neurotoin BID at home Patient started on [place] postoperatively, pain controlled at time of discharge. [...] of this encounter (statuses as of 09/07/2022) [facility] History of Past illness Narrative* Problem Noted [...] for aorto-occlusive critical limb ischemia, CAD previous IL, DM, HTN, DLD, COPD, UC/IBD on sulfasalazine [...] Neurotoin BID at home Patient started on [place] postoperatively, pain controlled at time of discharge. [...] of this encounter (statuses as of 10/01/2022) [facility] History of Past illness Narrative* Problem Noted [...] symptoms with that. Acute blood loss anemia 01/28/20142 11/2019 Overview: Transfuse 2 units PRBC intra-op [...] for aorto-occlusive critical limb ischemia, CAD previous IL, DM, HTN, DLD, COPD, UC/IBD on sulfasalazine [...] Neurotoin BID at home Patient started on [place] postoperatively, pain controlled at time of discharge. [...] of this encounter (statuses as of 12/27/2022) [facility]2020 History of Past illness Narrative* Problem Noted [...] for aorto-occlusive critical limb ischemia, CAD previous IL, DM, HTN, DLD, COPD, UC/IBD on sulfasalazine [...] Neurotoin BID at home Patient started on [place] postoperatively, pain controlled at time of discharge. [...] of this encounter (statuses as of 12/27/2022) [facility]2020 History of Past illness Narrative* Problem Noted [...] for aorto-occlusive critical limb ischemia, CAD previous IL, DM, HTN, DLD, COPD, UC/IBD on sulfasalazine [...] Neurotoin BID at home Patient started on [place] postoperatively, pain controlled at time of discharge. [...] of this encounter (statuses as of 01/28/2023) [facility]2020 History of Past illness Narrative* Problem Noted [...] for aorto-occlusive critical limb ischemia, CAD previous IL, DM, HTN, DLD, COPD, UC/IBD on sulfasalazine [...] Neurotoin BID at home Patient started on [place] postoperatively, pain controlled at time of discharge. [...] of this encounter (statuses as of 03/01/2023) [facility] History of Past illness Narrative* Problem Noted [...] for aorto-occlusive critical limb ischemia, CAD previous IL, DM, HTN, DLD, COPD, UC/IBD on sulfasalazine [...] Neurotoin BID at home Patient started on [place] postoperatively, pain controlled at time of discharge. [...] of this encounter (statuses as of 03/31/2023) [facility] History of Past illness Narrative* Problem Noted [...] for aorto-occlusive critical limb ischemia, CAD previous IL, DM, HTN, DLD, COPD, UC/IBD on sulfasalazine [...] Neurotoin BID at home Patient started on [place] postoperatively, pain controlled at time of discharge. [...] of this encounter (statuses as of 05/22/2023) [facility] History of Past illness Narrative* Problem Noted [...] for aorto-occlusive critical limb ischemia, CAD previous IL, DM, HTN, DLD, COPD, UC/IBD on sulfasalazine [...] Neurotoin BID at home Patient started on [place] postoperatively, pain controlled at time of discharge. [...] of this encounter (statuses as of 05/31/2023) [facility] History of Past illness Narrative* Problem Noted [...] for aorto-occlusive critical limb ischemia, CAD previous IL, DM, HTN, DLD, COPD, UC/IBD on sulfasalazine [...] Neurotoin BID at home Patient started on [place] postoperatively, pain controlled at time of discharge. [...] of this encounter (statuses as of 05/31/2023) [facility]2020 Evaluation note* Diagnosis s/p left femoral endarterectomy/aortoiliac stenting 10/08/2019- Primary Peripheral vascular disease, unspecified PVD (peripheral vascular disease) (HCC) Peripheral vascular disease, unspecified Smoker Tobacco use disorder [facility] Miquel Santiago [facility] April 04, 2023 10:18am Note Date/Time April 04, 2023 1 0:18am [facility] Medical Records Department [address] [place] [address] Counseling Note - Pharmacy 04/04/23 1017 MR#: [id number] Acct: [id number] Name: PEDRO PABLO SIERRA Rep #:[id number] : 1950 72 From: Miquel Santiago PCP: Dr. Daija Morton MD Status:ADM I N Y Location: [place] [address] Pharmacy [facility] Pharmacy Service has performed discharge medication reconciliation [...] signed by Miquel pierce> Date _ Miquel Hamiltoner Signature (if applicable): Date CC: ~ Signed [facility] Work Phone: Discharge summary Author Frankie Galindo [facility] April 04, 2023 10:03am Note Date/Time April 04, 2023 1 0:03am [facility] Medical Records Department [address] [place] [address] Discharge Summary 04/04/23 1002 MR#: [id number] Acct: [id number] Name: PEDRO PABLO SIERRA Rep #:[id number] : 1950 72 From: Frankie Galindo MD PCP: Dr. Daija Morton MD Status:ADM I N Location: [place] [address] Providers Date of Admission: 03/30/23 Primary Care [...] Requested for PT OT eval and social service manager to assist with discharge planning 3. [...] tamsulosin and finasteride 10. DVT prophylaxis ? MD Lovenox Time spent in the patient's overall [...] % (Auto) 64.4, Lymph % (Auto) 23.6, [place] % (Auto) 6.3, Eos % (Auto) 3.3, [...] cbc while on iv abx. Fax to [phone] sennosides-docusate sodium [Stool Softener-Stimulant Laxat] 8.6-50 mg [...] in before D/C Order can be placed): Care Home Facility Charges/Coding Visit Charges Inpatient E&M: 88188 Disch Hosp >30min 04/04/23 1003 <Electronically signed by Frankie Galindo MD> Cosigner Signature (if applicable): CC: Dr. Daija Morton MD; Dr. Frankie Galindo MD~ Signed [facility] Work Phone: Evaluation + Plan note No data available for this section [facility] Evaluation note* Diagnosis History of recent hospitalization- Primary Personal history of unspecified disease RUQ abdominal pain Abdominal pain, right upper quadrant Cholecystitis Cholecystitis, unspecified Dysuria Hematuria, unspecified type Essential hypertension Unspecified essential hypertension Anemia, unspecified type Smoker Tobacco use disorder Encounter for monitoring Coumadin therapy Encounter for therapeutic drug monitoring [facility] Diagnosis Coronary artery disease involving [place] coronary artery without angina pectoris, unspecified whether [place] or transplanted heart PVD (peripheral vascular disease) (HCC) Peripheral vascular disease, unspecified [facility] Diagnosis Onset Date Resolution Status Abdominal pain acute Acute cholecystitis acute Biliary colic acute Biliary sludge determined by ultrasound acute Current use of anticoagulant therapy acute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 Physical Exam 07/24/23 2104 MR#: [id number] Acct: [id number] Name: PEDRO PABLO SIERRA Rep #:[id number] : 1950 73 From: Андрей Cooley MD [...] control and case management to arrange for care home care facility. [facility] Medical History Asthma Atrial fibrillation Chronic [...] 74.0 H, Lymph % (Auto) 16.0 L, [place] % (Auto) 7.3, Eos % (Auto) 1.1, [...] 17:27 EST Reading Location ID and State: [facility] / [place] Tel , Service support , Assessment & [...] on anticoagulation Charges/Coding Visit Charges Inpatient E&M: 18512 Init Hosp L2 07/24/232109 <Electronically signed by Андрей Cooley MD> Cosigner Signature (if applicable): CC: Dr. Daija Morton MD; Dr. Андрей Cooley MD~ Signed [facility] Work Phone: History and physical note Author Lisha Talamantes [facility] Note Date/Time August 25, 2024 7:00 pm [facility] Medical Records Department [address] [place] [address] H&P Exam - Hospitalist 08/25/24 1820 MR#: [id number] Acct: [id number] Name: PEDRO PABLO SIERRA Rep #:[id number] : 1950 74 From: Lisha Talamantes DO PCP: Dr. Daija Morton MD Status:ADM I NO Location: ME3 [id number] HPI - General General Date of Admission: 08/25/24 Date of Service: 08/25/24 Chief Complaint: Diarrhea/generalized weakness HPI Narrative PEDRO PABLO SIERRA, is a 74 M who presented to the emergency department [facility] on 08/25/2024 with a chief complaint [...] Chest x-ray is unremarkable for acute findings. [facility] Medical History Compression fx, lumbar spine [...] mg tablet 40 mg PO QHS Cholesterol 04/ 06/16 10/10/23 History mirtazapine 15 mg tablet 15 mg [...] 78.4 H, Lymph % (Auto) 10.3 L, [place] % (Auto) 9.9, Eos % (Auto) 0.3, [...] abnormality. Reading [facility] Assessment & Plan Assessment/Plan (1) Acute diarrhea: [...] wasadamant that he did not want to "go back to the same place" -? If ECF should be pursued -PT/OT/case [...] need clarified Charges/Coding Visit Charges Inpatient E&M: 11488 Init Hosp L2 08/25/24 1900 <Electronically signed by Lisha Talamantes DO> Cosigner Signature (if applicable): CC: Dr. Daija Morton MD; Dr. Lisha Talamantes DO~ Signed [facility] Work Phone: History and physical note Author Shilpa Contreras [facility] Note Date/Time December 13, 2024 8:50 pm [facility] Medical Records Department [address] [place] [address] H&P Exam - Hospitalist 12/13/241948 MR#: [id number] Acct: [id number] Name: PEDRO PABLO SIERRA Rep #:[id number] : 1950 74 From: Shilpa Contreras MD PCP: Dr. Daija Morton MD Status:ADM I N Location: [place] [address] HPI - General General Date of Admission: [...] PJ, Tobacco use who presents to the [facility] ED on 12/13/2024 with history of [...] component requested ABG and will trial BiPAP. [facility] Medical History Weakness Debility Failure to [...] MD) household members: family housing: other details: [employer] 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 Smoking Status: Current [...] % (Auto) 67.3, Lymph % (Auto) 19.5, [place]% (Auto) 8.9, Eos % (Auto) 3.0, Baso [...] significant change since last exam. Reading Location: [facility] Assessment & Plan Assessment/Plan (1) [...] PJ, Tobacco use who presents to the [facility] ED on 12/13/2024 with history of [...] 0.9. #16. CODE status: Patient healthcare power employee benefits attorney and living will are not in [...] 16 minutes. Charges/Coding Visit Charges Inpatient E&M: 14384 Init Hosp L3 Procedures Hospitalists Procedures: 46820 Advncd Care Plan 30 Min 12/13/242049 <Electronically signed by Shilpa Contreras MD> Cosigner Signature (if applicable): CC: Dr. Shilpa Contreras MD; Dr. Daija Morton MD~ Signed [facility] Work Phone: History and physical note Author Frankie Galindo [facility] Note Date/Time January 05, 2025 2:02 pm [facility] Medical Records Department [address] [place] [address] H&P Exam - Hospitalist 01/05/25 1336 MR#: [id number] Acct: [id number] Name: ARIEL SIERRAJAYY Pierce Rep #:[id number] : 1950 74 From: Frankie Galindo MD PCP: Dr. Lorraine Mena MD Status:A DM IN Location: [facility] [id number]- 1 HPI - General General Date of Admission: 01/05/25 Date of Service: 01/05/25 Chief Complaint: Suspected PEG tomorrow found HPI Narrative PEDRO PABLO SIERRA, is a 74 M with recent diagnosis of acute left MCA CVA discharged to a care home facility. Patient had a PEG tube placed [...] to a monitored bed for further management [facility] Medical History Acute CVA (cerebrovascular accident) [...] 76.7 H, Lymph % (Auto) 14.2 L, [place] % (Auto) 7.0, Eos % (Auto) 1.2, [...] IMPRESSION: COPD. No acute findings. Reading Location: [id number] X-Ray 01/05/25 13:02 IMPRESSION: A PEG tube tip is projected in the region of the stomach. Contrast material is identified within the stomach. There is no extravasation of the contrast. 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 [...] 78 Minutes Charges/Coding Visit Charges Inpatient E&M: 75827 Init Hosp L3 01/05/25 1402 <Electronically signed by Frankie Galindo MD> Cosigner Signature (if applicable): CC: Dr. Frankie Galindo MD; Dr. Lorraine Mena MD~ Signed [facility] Work Phone: [facility] Work Phone: [facility] Work Phone: [phone] Discharge instructionsW[facility] Work Phone: [phone] Discharge instructionsW[facility] Work Phone: [phone] Discharge instructionsW[facility] Work Phone: [phone] Discharge instructionsW[facility] Work Phone: [phone] Discharge instructions Additional Instructions Ice to your rib cage. Support your sore ribs with a pillow. Your chest x-ray did not show any broken ribs sometimes however there are small cracks in the ribs we cannot see on the x-ray. [place] for more severe pain. Otherwise use Tylenol. If you are using the pain medication [place] then do not use Tylenol with it. Follow-up with your doctor as needed. Keep the wounds on your forearms clean. Clean daily with soap and water. Patient apply antibiotic ointment. Watch for any signs of infection if seen follow-up.[facility] Work Phone: Hospital Discharge instructions Additional Instructions Please use the walker and follow-up with your primary care doctor.[facility] Work Phone: Progress note No data available for this section [facility] Reason for referral (narrative)* Outpatient Procedure (Routine) - Closed Specialty Diagnoses / Procedures Referred By Contac t Referred To [facility] Diagnoses COPD with chronic bronchitis (HCC) Procedures OXIMETRY WITH AMBULATION NONINVASIVE EAR/PULSE OXIMETRY MULTIPLE DETER Emilie Jauregui PA-C [address] [address] [address] Referral ID Status Reason Start Date Expiration Date V isits Requested Visits Authorized [id number] Closed Auto-Generate d Referral 11/05/2021 06/18/2022 1 1 * Outpatient Procedure (Routine) - Closed Specialty Diagnoses / Procedures Referred By Contac t Referred To Contact [facility] Diagnoses COPD with chronic bronchitis (HCC) Procedures LUNG DIFFUSION CAPACITY (DLCO) DIFFUSING CAPACITY Emilie Jauregui PA-C [address] [address] Referral ID Status Reason Start Date Expiration Date V isits Requested Visits Authorized [id number] Closed Auto-Generate d Referral 11/05/2021 06/18/2022 1 1 * Outpatient Procedure (Routine) - Closed Specialty Diagnoses / Procedures Referred By Contac t Referred [facility] Diagnoses COPD with chronic bronchitis (HCC) Procedures SPIROMETRY BASELINE ONLY SPMTRY W/VC EXPIRATORY BRIAN W/WO MXML VOL VNTJ Emilie Jauregui PA-C [address] [address] Respiratory [place] [address] [place] [address] Referral ID Status Reason Start Date Expiration Date V isits Requested Visits Authorized [id number] Closed Auto-Generate d Referral 11/05/2021 06/18/2022 1 1 [facility] for referral (narrative)* Outpatient Procedure (Routine) - Pending Review Specialty Diagnoses / Procedures Referred By Contac t Referred To Contact [facility] Diagnoses Essential hypertension Chest pain, unspecified type Procedures ECG COMPLETE ECG ROUTINE ECG W/LEAST 12 LDS W/I&R Anjel Braga APRN.CNP [address] [place] [address] [address] Referral ID Status Reason Start Date Expiration Date Visits Requested Visits Authorized [id number] Pending Review Auto-Generat ed Referral 01/28/2022 01/28/2023 1 1 [facility] for referral (narrative)* Outpatient Procedure (Routine) - Authorized Specialty Diagnoses / Procedures Referred By Contac t Referred To Contact [facility] Diagnoses PVD (peripheral vascular disease) (HCC) Procedures PVR LEG COREY VAS LAB PVR LEG COREY VAS LAB NON-INVASIVE PHYSIOLOGIC STUDY EXTREMITY [address] [place] [address] [place] [address] [facility] Vascular [address] [address] Referral ID Status Reason Start Date Expiration Date Visits Requested Visits Authorized [id number] Authorized Auto-Generat ed Referral 01/31/2022 01/31/2023 1 1 [facility] for referral (narrative)* Outpatient Procedure (Routine) - Authorized Specialty Diagnoses / Procedures Referred By Contac t Referred To Contact [facility] Diagnoses Peripheral arterial disease (HCC) PVD (peripheral vascular disease) (HCC) Procedures PVR LEG COREY VAS LAB NON-INVASIVE PHYSIOLOGIC STUDY EXTREMITY [address] [place] [address] [place] [address] [address] Referral ID Status Reason Start Date Expiration Date Visits Requested Visits Authorized [id number] Authorized Auto-Generat ed Referral 12/26/2022 12/26/2023 1 1 [facility] for referral (narrative)* Outpatient Procedure (Routine) - Authorized Specialty Diagnoses / Procedures Referred By Contac t Referred To Contact [facility] Diagnoses Peripheral arterial disease (HCC) Procedures PVR LEG COREY VAS LAB NON-INVASIVE PHYSIOLOGIC STUDY EXTREMITY 3 [place] [address] [place] [address] [address] Referral ID Status Reason Start Date Expiration Date Visits Requested Visits Authorized [id number] Authorized Auto-Generat ed Referral 01/02/2024 01/01/2025 1 1 [facility] for referral (narrative)No reason for referral information availableWThe [facility] Work Phone: Summary Purpose Family [...] FoundDocuments on File Type Date Recorded Patient 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 Interpreter Expl anation Advance Directive(s) 10/24/2019 3:38 PM [...] Documents on File Type Date Recorded Patient Seismic Interpreter Expl anation Advance Directive(s) 08/29/2021 6:53 PM Advance Directive(s) 08/22/2021 7:53 PM Advance Directive(s) 04/10/2020 4:06 PM Advance Directive(s) 12/17/2019 10:49 AM Advance Directive(s) 10/24/2019 3:38 PM Advance Directive(s) 10/17/2019 9:43 AM Advance Directive(s) 10/08/2019 7:18 AM Advance Directive(s) 09/04/2019 1:38 PM Advance Directive(s) 02/07/2016 12:11 AM Advance Directive Response Recorded Date/ Time Name of Medical Power of Orthopedic Physician Assistant eloina stephens e- ex August 12, 2021 1:39am Name of Medical Power of Orthopedic Physician Assistant Joseph Yony August 18, 2021 11:56pm Advance Directives Yes March 22, 2016 4:03pm Living Will No September 17, 2021 5:48pm Power of Orthopedic Physician Assistant Yes September 17 5:48pm Advance Directive Response Recorded Date/ Time Name of Medical Power of Orthopedic Physician Assistant eloina stephens e- ex August 12, 2021 1:39am Name of Medical Power of Orthopedic Physician Assistant Joseph Burrell August 18, 2021 11:56pm Name of Medical Power of Orthopedic Physician Assistant joseph burrell September 17, 2021 5:48pm Advance Directives Yes March 22, 2016 4:03pm Living Will No October 08, 2021 2:20pm Power of Orthopedic Physician Assistant No October 08 2:20pm Documents on File Type Date Recorded Patient 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 Interpreter Expl anation Advance Directive(s) 08/29/2021 6:53 PM [...] Date/ Time Name of Medical Power of Orthopedic Physician Assistant eloina stephens e- ex August 12, 2021 1:39am Name of Medical Power of Orthopedic Physician Assistant Joseph Burrell August 18, 2021 11:56pm Name of Medical Power of Orthopedic Physician Assistant joseph burrell September 17, 2021 5:48pm Advance Directives Yes March 22, 2016 4:03pm Living Will Yes November 25, 2021 5 :33pm Power of Orthopedic Physician Assistant Yes November 25, 2021 5:33pm Advance Directive Response Recorded Date/ Time Name of Medical Power of Orthopedic Physician Assistant eloina stephens e- ex August 12, 2021 1:39am Name of Medical Power of Orthopedic Physician Assistant Joseph Burrell August 18, 2021 11:56pm Name of Medical Power of Orthopedic Physician Assistant joseph burrell September 17, 2021 5:48pm Advance Directives Yes March 22, 2016 4:03pm Living Will Yes November 25, 2021 1 1:06pm Power of Orthopedic Physician Assistant No November 25, 2021 11:06pm Advance Directive Response Recorded Date/ Time Name of Medical Power of Orthopedic Physician Assistant Joseph Burrell August 18, 2021 11:56pm Name of Medical Power of Orthopedic Physician Assistant joseph burrell September 17, 2021 5:48pm Name of Medical Power of Orthopedic Physician Assistant MICHELLE RICHMOND November 25, 2021 5:33pm Advance Directives Yes March 22, 2016 4:03pm Living Will Yes November 25, 2021 1 1:06pm Power of Orthopedic Physician Assistant No November 25, 2021 11:06pm Advance Directive Response Recorded Date/ Time Name of Medical Power of Orthopedic Physician Assistant joseph burrell September 17, 2021 5:48pm Name of Medical Power of Orthopedic Physician Assistant MICHELLE RICHMOND November 25, 2021 5:33pm Advance Directives Yes March 22, 2016 4:03pm Living Will Yes November 25, 2021 1 1:06pm Power of Orthopedic Physician Assistant No November 25, 2021 11:06pm Advance Directive Response Recorded Date/ Time Name of Medical Power of Orthopedic Physician Assistant MICHELLE RICHMOND November 25, 2021 5:33pm Advance Directives Yes March 22, 2016 4:03pm Living Will Yes November 25, 2021 1 1:06pm Power of Orthopedic Physician Assistant No November 25, 2021 11:06pm Advance Directive Response Recorded Date/ Time Name of Medical Power of Orthopedic Physician Assistant MICHELLE RICHMOND November 25, 2021 5:33pm Name of Medical Power of Orthopedic Physician Assistant recalled January 28, 2022 3:14pm Advance Directives Yes March 22, 2016 4:03pm Living Will Yes January 28 3:14pm Power of Orthopedic Physician Assistant Yes January 28, 022 3:14pm Documents on File Type Date Recorded Patient Seismic Interpreter Expl anation Advance Directive(s) 10/24/2019 3:38 PM Advance Directive Response Recorded Date/ Time Name of Medical Power of Orthopedic Physician Assistant MICHELLE RICHMOND November 25, 2021 5:33pm Name of Medical Power of Orthopedic Physician Assistant recalled January 28, 2022 3:14pm Advance Directives Yes March 22, 2016 4:03pm Living Will Yes March 02, 2022 3:17pm Power of Orthopedic Physician Assistant No February 3:17pm Advance Directive Response Recorded Date/ Time Name of Medical Power of Orthopedic Physician Assistant MICHELLE RICHMOND November 25, 2021 5:33pm Name of Medical Power of Orthopedic Physician Assistant recalled January 28, 2022 3:14pm Advance Directives Yes March 22, 2016 4:03pm Living Will No March 07, 2022 5:26pm Power of Orthopedic Physician Assistant No February 5:26pm Advance Directive Response Recorded Date/ Time Name of Medical Power of Orthopedic Physician Assistant MICHELLE RICHMOND November 25, 2021 5:33pm Name of Medical Power of Orthopedic Physician Assistant recalled January 28, 2022 3:14pm Advance Directives Yes March 22, 2016 4:03pm Living Will No March 08, 2022 8:17pm Power of Orthopedic Physician Assistant No February 8:17pm Advance Directive Response Recorded Date/ Time Advance Directives Yes March 22, 2016 3:03pm Living Will No March 08, 2022 7:17pm Power of Orthopedic Physician Assistant No February 7:17pm Advance Directive Response Recorded Date/ Time Advance Directives Yes March 22, 2016 4:03pm Living Will No October 21, 2022 6: 58pm Power of Orthopedic Physician Assistant No October 21, 2022 6:58pm Latest Code [...] Date/ Time Name of Medical Power of Orthopedic Physician Assistant JOSEPH Middleton X December 31, 2022 3:19pm Advance Directives Yes March 22, 2016 4:03pm Living Will Yes December 31, 2022 3:19pm Power of Orthopedic Physician Assistant Yes December 31 3:19pm Advance Directive Response Recorded Date/ Time Name of Medical Power of Orthopedic Physician Assistant JOSEPH Euceda December 31, 2022 3:19pm Name of Medical Power of Orthopedic Physician Assistant Joseph February 17, 2023 11:06pm Advance Directives Yes March 22, 2016 4:03pm Living Will Yes February 17, 11:06pm Power of Orthopedic Physician Assistant Yes February 17, 2023 11:06pm Advance Directive Response Recorded Date/ Time Name of Medical Power of Orthopedic Physician Assistant Joseph Burrell March 29, 2023 7:22pm Advance Directives Yes March 22, 2016 4:03pm Living Will No March 30 3:32pm Power of Orthopedic Physician Assistant No March 30, 2023 3:32pm Name of Medical Power of Orthopedic Physician Assistant JOSEPH Euceda December 31, 2022 3:19pm Name of Medical Power of Orthopedic Physician Assistant Joseph February 17, 2023 11:06pm Advance Directive Response Recorded Date/ Time Name of Medical Power of Orthopedic Physician Assistant Joseph Burrell March 29, 2023 7:22pm Advance Directives Yes March 22, 2016 4:03pm Living Will No March 30 9:04pm Power of Orthopedic Physician Assistant No March 30, 2023 9:04pm Name of Medical Power of Orthopedic Physician Assistant JOSEPH Euceda December 31, 2022 3:19pm Name of Medical Power of Orthopedic Physician Assistant Joseph February 17, 2023 11:06pm Advance Directive Response Recorded Date/ Time Name of Medical Power of Orthopedic Physician Assistant Joseph Burrell March 29, 2023 6:22pm Advance Directives Yes March 22, 2016 3:03pm Living Will No March 30 8:04pm Power of Orthopedic Physician Assistant No March 30, 2023 8:04pm Advance Directive Response Recorded Date/ Time Name of Medical Power of Orthopedic Physician Assistant Joseph Burrell March 29, 2023 6:22pm Name of Medical Power of Orthopedic Physician Assistant Joseph Burrell July 24, 2023 5:27pm Advance Directives Yes March 22, 2016 3:03pm Living Will Yes July 24 5:27pm Power of Orthopedic Physician Assistant Yes July 24, 2023 5:27pm Advance Directive Response Recorded Date/ Time Name of Medical Power of Orthopedic Physician Assistant Joseph Burrell July 24, 2023 9:55pm Advance Directives Yes March 22, 2016 3:03pm Living Will No July 30 8:34pm Power of Orthopedic Physician Assistant No July 30, 2023 8:34pm Advance Directive Response Recorded Date/ Time Name of Medical Power of Orthopedic Physician Assistant Joseph Burrell July 24, 2023 9:55pm Name of Medical Power of Orthopedic Physician Assistant Nahed Ramsey July 31, 2023 12:57am Advance Directives Yes March 22, 2016 3:03pm Living Will No July 31 12:57am Power of Orthopedic Physician Assistant Yes July 31, 2023 12:57am Date Activated Date Inactivated Comments 08/23/2021 7:55 AM 09/13/2021 7:43 PM Question Answer Comments Full Code Order Discussed With: Patient Date Activated Date Inactivated Comments 10/01/2020 11:51 PM 08/21/2021 11:26 AM Advance Directive Response Recorded Date/ Time Name of Medical Power of Orthopedic Physician Assistant Joseph Burrell March 29, 2023 6:22pm Advance Directives Yes March 22, 2016 3:03pm Living Will No March 30 8:04pm Power of Orthopedic Physician Assistant No March 30, 2023 8:04pm Name of Medical Power of Orthopedic Physician Assistant Joseph February 17, 2023 10:06pm Advance Directive Response Recorded Date/ Time Living Will No August 25, 2024 4:43pm Power of Orthopedic Physician Assistant No August 25 4:43pm Advance Directives Yes March 22, 2016 4:03pm Advance Directive Response Recorded Date/ Time Living Will No August 25, 2024 7:21pm Power of Orthopedic Physician Assistant No August 25 7:21pm Advance Directives Yes March 22, 2016 4:03pm Advance Directive Response Recorded Date/ Time Living Will No August 25, 2024 7:21pm Do you have a Healthcare Power of Orthopedic Physician Assistant? No August 25, 2024 7:21pm Advance Directives Yes March 22, 2016 4:03pm Advance Directive Response Recorded Date/ Time Do you have a Healthcare Power of Orthopedic Physician Assistant? No December 13, 2024 5:49pm Living Will No August 25, 2024 7:21pm Do you have a Healthcare Power of Orthopedic Physician Assistant? No August 25, 2024 7:21pm Advance Directives Yes March 22, 2016 4:03pm Advance Directive Response Recorded Date/ Time Do you have a Healthcare Power of Orthopedic Physician Assistant? Yes December 13, 2024 9:26pm Name of Medical Power of Orthopedic Physician Assistant Joseph Burrell December 13, 2024 9:26pm Living Will No August 25, 2024 7:21pm Do you have a Healthcare Power of Orthopedic Physician Assistant? No August 25, 2024 7:21pm Advance Directives Yes March 22, 2016 4:03pm Advance Directive Response Recorded Date/ Time Do you have a Healthcare Power of Orthopedic Physician Assistant? Yes December 13, 2024 9:26pm Name of Medical Power of Orthopedic Physician Assistant Joseph Burrell December 13, 2024 9:26pm Do you have a Healthcare Power of Orthopedic Physician Assistant? Yes December 17, 2024 4:23pm Living Will No August 25, 2024 7:21pm Do you have a Healthcare Power of Orthopedic Physician Assistant? No August 25, 2024 7:21pm Advance Directives Yes March 22, 2016 4:03pm Advance Directive Response Recorded Date/ Time Do you have a Healthcare Power of Orthopedic Physician Assistant? Yes December 13, 2024 9:26pm Name of Medical Power of Orthopedic Physician Assistant Joseph Burrell December 13, 2024 9:26pm Do you have a Healthcare Power of Orthopedic Physician Assistant? Yes December 17, 2024 4:23pm Do you have a Healthcare Power of Orthopedic Physician Assistant? Yes January 03, 2025 6:26am Advance Directives Yes March 22, 2016 4:03pm Advance Directive Response Recorded Date/ Time Do you have a Healthcare Power of Orthopedic Physician Assistant? Yes December 13, 2024 9:26pm Name of Medical Power of Orthopedic Physician Assistant Joseph Burrell December 13, 2024 9:26pm Do you have a Healthcare Power of Orthopedic Physician Assistant? Yes December 17, 2024 4:23pm Do you have a Healthcare Power of Orthopedic Physician Assistant? Yes January 03, 2025 6:26am Do you have a Healthcare Power of Orthopedic Physician Assistant? No January 05, 2025 9:44am Advance Directives Yes March 22, 2016 4:03pm Advance Directive Response Recorded Date/ Time Do you have a Healthcare Power of Orthopedic Physician Assistant? Yes December 13, 2024 9:26pm Name of Medical Power of Orthopedic Physician Assistant Joseph Burrell December 13, 2024 9:26pm Do you have a Healthcare Power of Orthopedic Physician Assistant? Yes December 17, 2024 4:23pm Do you have a Healthcare Power of Orthopedic Physician Assistant? Yes January 03, 2025 6:26am Do you have a Healthcare Power of Orthopedic Physician Assistant? No January 05, 2025 2:48pm Advance Directives Yes March 22, 2016 4:03pm Hospital Course Note HNO ID: [id number] Author: Luis Girard Service: Vascular Surgery Author [...] Admitted for a planned redo of left ENROLLMENT MANAGEMENT VICE PRESIDENT endarterectomy versus bypass, possible fem-fem and or fem-pop bypass, possible stent placement for reoccurrent left ENROLLMENT MANAGEMENT VICE PRESIDENT disease, thrombosis of the left iliac stents and rest pain. Operations during Hospitalization: 10/08/2019-Left common femoral endarterectomy with bovine patch, redo.Thrombectomy of the occluded Left RADHA and EIA.Left common and external iliac stents (Cast x 2), (Gene (more content not included)... Note HNO ID: [id number] Author: Bing Oden (Pa) Service: Vascular Surgery Author Type: Physician Set Up Worker Type: Discharge Summary Filed: 10/25/2019 4:58 PM [...] status post revascularization of left leg. 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 Reason for Hospitalization: pleasant 69-year-old gentleman, who has recently undergone com (more content not included)... Note HNO ID: [id number] Author: Luis Girard Service: Vascular Surgery Author Type: Nurse Practitioner Type: Discharge Summary Filed: 12/17/2019 5:52 PM Note Text: Attestation signed by Rob Stevens at 12/18/2019 8:07 AM [facility] STAFF PHYSICIAN NOTE OF PERSONAL INVOLVEMENT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 Drug Abuse Patient Records regulations: The Federal rules restrict any use of the information to criminally investigate or prosecute any alcohol or drug abuse patient.[facility] InstituteIn the event this information is protected by the Federal Confidentiality of Alcohol and Drug Abuse Patient Records regulations: The Federal rules restrict any use of the information to criminally investigate or prosecute any alcohol or drug abuse patient.[facility] InstituteIn the event this information is protected by the Federal Confidentiality of Alcohol and Drug Abuse Patient Records regulations: The Federal rules restrict any use of the information to criminally investigate or prosecute any alcohol or drug abuse patient.[facility] InstituteIn the event this information is protected by the Federal Confidentiality of Alcohol and Drug Abuse Patient Records regulations: The Federal rules restrict any use of the information to criminally investigate or prosecute any alcohol or drug abuse patient.[facility] InstituteIn the event this information is protected by the Federal Confidentiality of Alcohol and Drug Abuse Patient Records regulations: The Federal rules restrict any use of the information to criminally investigate or prosecute any alcohol or drug abuse patient.[facility] InstituteIn the event this information is protected by the Federal Confidentiality of Alcohol and Drug Abuse Patient Records regulations: The Federal rules restrict any use of the information to criminally investigate or prosecute any alcohol or drug abuse patient.[facility] InstituteIn the event this information is protected by the Federal Confidentiality of Alcohol and Drug Abuse Patient Records regulations: The Federal rules restrict any use of the information to criminally investigate or prosecute any alcohol or drug abuse patient.[facility] InstituteIn the event this information is protected by the Federal Confidentiality of Alcohol and Drug Abuse Patient Records regulations: The Federal rules restrict any use of the information to criminally investigate or prosecute any alcohol or drug abuse patient.[facility] InstituteIn the event this information is protected by the Federal Confidentiality of Alcohol and Drug Abuse Patient Records regulations: The Federal rules restrict any use of the information to criminally investigate or prosecute any alcohol or drug abuse patient.[facility] InstituteIn the event this information is protected by the Federal Confidentiality of Alcohol and Drug Abuse Patient Records regulations: The Federal rules restrict any use of the information to criminally investigate or prosecute any alcohol or drug abuse patient.[facility] InstituteIn the event this information is protected by the Federal Confidentiality of Alcohol and Drug Abuse Patient Records regulations: The Federal rules restrict any use of the information to criminally investigate or prosecute any alcohol or drug abuse patient.[facility] InstituteIn the event this information is protected by the Federal Confidentiality of Alcohol and Drug Abuse Patient Records regulations: The Federal rules restrict any use of the information to criminally investigate or prosecute any alcohol or drug abuse patient.[facility] InstituteIn the event this information is protected by the Federal Confidentiality of Alcohol and Drug Abuse Patient Records regulations: The Federal rules restrict any use of the information to criminally investigate or prosecute any alcohol or drug abuse patient.[facility] InstituteIn the event this information is protected by the Federal Confidentiality of Alcohol and Drug Abuse Patient Records regulations: The Federal rules restrict any use of the information to criminally investigate or prosecute any alcohol or drug abuse patient.[facility] InstituteIn the event this information is protected by the Federal Confidentiality of Alcohol and Drug Abuse Patient Records regulations: The Federal rules restrict any use of the information to criminally investigate or prosecute any alcohol or drug abuse patient.[facility] InstituteIn the event this information is protected by the Federal Confidentiality of Alcohol and Drug Abuse Patient Records regulations: The Federal rules restrict any use of the information to criminally investigate or prosecute any alcohol or drug abuse patient.[facility] InstituteIn the event this information is protected by the Federal Confidentiality of Alcohol and Drug Abuse Patient Records regulations: The Federal rules restrict any use of the information to criminally investigate or prosecute any alcohol or drug abuse patient.[facility] InstituteIn the event this information is protected by the Federal Confidentiality of Alcohol and Drug Abuse Patient Records regulations: The Federal rules restrict any use of the information to criminally investigate or prosecute any alcohol or drug abuse patient.[facility] InstituteIn the event this information is protected by the Federal Confidentiality of Alcohol and Drug Abuse Patient Records regulations: The Federal rules restrict any use of the information to criminally investigate or prosecute any alcohol or drug abuse patient.[facility] InstituteIn the event this information is protected by the Federal Confidentiality of Alcohol and Drug Abuse Patient Records regulations: The Federal rules restrict any use of the information to criminally investigate or prosecute any alcohol or drug abuse patient.[facility] InstituteIn the event this information is protected by the Federal Confidentiality of Alcohol and Drug Abuse Patient Records regulations: The Federal rules restrict any use of the information to criminally investigate or prosecute any alcohol or drug abuse patient.[facility] InstituteIn the event this information is protected by the Federal Confidentiality of Alcohol and Drug Abuse Patient Records regulations: The Federal rules restrict any use of the information to criminally investigate or prosecute any alcohol or drug abuse patient.[facility] InstituteIn the event this information is protected by the Federal Confidentiality of Alcohol and Drug Abuse Patient Records regulations: The Federal rules restrict any use of the information to criminally investigate or prosecute any alcohol or drug abuse patient.[facility] InstituteIn the event this information is protected by the Federal Confidentiality of Alcohol and Drug Abuse Patient Records regulations: The Federal rules restrict any use of the information to criminally investigate or prosecute any alcohol or drug abuse patient.[facility] InstituteIn the event this information is protected by the Federal Confidentiality of Alcohol and Drug Abuse Patient Records regulations: The Federal rules restrict any use of the information to criminally investigate or prosecute any alcohol or drug abuse patient.[facility] InstituteIn the event this information is protected by the Federal Confidentiality of Alcohol and Drug Abuse Patient Records regulations: The Federal rules restrict any use of the information to criminally investigate or prosecute any alcohol or drug abuse patient.[facility]In the event this information is protected by the Federal Confidentiality of Alcohol and Drug Abuse Patient Records regulations: The Federal rules restrict any use of the information to criminally investigate or prosecute any alcohol or drug abuse patient.[facility] InstituteIn the event this information is protected by the Federal Confidentiality of Alcohol and Drug Abuse Patient Records regulations: The Federal rules restrict any use of the information to criminally investigate or prosecute any alcohol or drug abuse patient.[facility]In the event this information is protected by the Federal Confidentiality of Alcohol and Drug Abuse Patient Records regulations: The Federal rules restrict any use of the information to criminally investigate or prosecute any alcohol or drug abuse patient.[facility]In the event this information is protected by the Federal Confidentiality of Alcohol and Drug Abuse Patient Records regulations: The Federal rules restrict any use of the information to criminally investigate or prosecute any alcohol or drug abuse patient.[facility]In the event this information is protected by the Federal Confidentiality of Alcohol and Drug Abuse Patient Records regulations: The Federal rules restrict any use of the information to criminally investigate or prosecute any alcohol or drug abuse patient.[facility] InstituteIn the event this information is protected by the Federal Confidentiality of Alcohol and Drug Abuse Patient Records regulations: The Federal rules restrict any use of the information to criminally investigate or prosecute any alcohol or drug abuse patient.[facility] InstituteIn the event this information is protected by the Federal Confidentiality of Alcohol and Drug Abuse Patient Records regulations: The Federal rules restrict any use of the information to criminally investigate or prosecute any alcohol or drug abuse patient.[facility] InstituteIn the event this information is protected by the Federal Confidentiality of Alcohol and Drug Abuse Patient Records regulations: The Federal rules restrict any use of the information to criminally investigate or prosecute any alcohol or drug abuse patient.[facility] InstituteIn the event this information is protected by the Federal Confidentiality of Alcohol and Drug Abuse Patient Records regulations: The Federal rules restrict any use of the information to criminally investigate or prosecute any alcohol or drug abuse patient.[facility]In the event this information is protected by the Federal Confidentiality of Alcohol and Drug Abuse Patient Records regulations: The Federal rules restrict any use of the information to criminally investigate or prosecute any alcohol or drug abuse patient.[facility] InstituteIn the event this information is protected by the Federal Confidentiality of Alcohol and Drug Abuse Patient Records regulations: The Federal rules restrict any use of the information to criminally investigate or prosecute any alcohol or drug abuse patient.[facility] InstituteIn the event this information is protected by the Federal Confidentiality of Alcohol and Drug Abuse Patient Records regulations: The Federal rules restrict any use of the information to criminally investigate or prosecute any alcohol or drug abuse patient.[facility] InstituteIn the event this information is protected by the Federal Confidentiality of Alcohol and Drug Abuse Patient Records regulations: The Federal rules restrict any use of the information to criminally investigate or prosecute any alcohol or drug abuse patient.[facility] InstituteIn the event this information is protected by the Federal Confidentiality of Alcohol and Drug Abuse Patient Records regulations: The Federal rules restrict any use of the information to criminally investigate or prosecute any alcohol or drug abuse patient.[facility] InstituteIn the event this information is protected by the Federal Confidentiality of Alcohol and Drug Abuse Patient Records regulations: The Federal rules restrict any use of the information to criminally investigate or prosecute any alcohol or drug abuse patient.[facility]In the event this information is protected by the Federal Confidentiality of Alcohol and Drug Abuse Patient Records regulations: The Federal rules restrict any use of the information to criminally investigate or prosecute any alcohol or drug abuse patient.[facility] InstituteIn the event this information is protected by the Federal Confidentiality of Alcohol and Drug Abuse Patient Records regulations: The Federal rules restrict any use of the information to criminally investigate or prosecute any alcohol or drug abuse patient.[facility]In the event this information is protected by the Federal Confidentiality of Alcohol and Drug Abuse Patient Records regulations: The Federal rules restrict any use of the information to criminally investigate or prosecute any alcohol or drug abuse patient.[facility] InstituteIn the event this information is protected by the Federal Confidentiality of Alcohol and Drug Abuse Patient Records regulations: The Federal rules restrict any use of the information to criminally investigate or prosecute any alcohol or drug abuse patient.[facility]In the event this information is protected by the Federal Confidentiality of Alcohol and Drug Abuse Patient Records regulations: The Federal rules restrict any use of the information to criminally investigate or prosecute any alcohol or drug abuse patient.[facility]In the event this information is protected by the Federal Confidentiality of Alcohol and Drug Abuse Patient Records regulations: The Federal rules restrict any use of the information to criminally investigate or prosecute any alcohol or drug abuse patient.[facility]In the event this information is protected by the Federal Confidentiality of Alcohol and Drug Abuse Patient Records regulations: The Federal rules restrict any use of the information to criminally investigate or prosecute any alcohol or drug abuse patient.[facility]In the event this information is protected by the Federal Confidentiality of Alcohol and Drug Abuse Patient Records regulations: The Federal rules restrict any use of the information to criminally investigate or prosecute any alcohol or drug abuse patient.[facility]In the event this information is protected by the Federal Confidentiality of Alcohol and Drug Abuse Patient Records regulations: The Federal rules restrict any use of the information to criminally investigate or prosecute any alcohol or drug abuse patient.[facility]In the event this information is protected by the Federal Confidentiality of Alcohol and Drug Abuse Patient Records regulations: The Federal rules restrict any use of the information to criminally investigate or prosecute any alcohol or drug abuse patient.[facility]In the event this information is protected by the Federal Confidentiality of Alcohol and Drug Abuse Patient Records regulations: The Federal rules restrict any use of the information to criminally investigate or prosecute any alcohol or drug abuse patient.[facility]In the event this information is protected by the Federal Confidentiality of Alcohol and Drug Abuse Patient Records regulations: The Federal rules restrict any use of the information to criminally investigate or prosecute any alcohol or drug abuse patient.[facility]In the event this information is protected by the Federal Confidentiality of Alcohol and Drug Abuse Patient Records regulations: The Federal rules restrict any use of the information to criminally investigate or prosecute any alcohol or drug abuse patient.[facility]In the event this information is protected by the Federal Confidentiality of Alcohol and Drug Abuse Patient Records regulations: The Federal rules restrict any use of the information to criminally investigate or prosecute any alcohol or drug abuse patient.[facility]In the event this information is protected by the Federal Confidentiality of Alcohol and Drug Abuse Patient Records regulations: The Federal rules restrict any use of the information to criminally investigate or prosecute any alcohol or drug abuse patient.[facility]In the event this information is protected by the Federal Confidentiality of Alcohol and Drug Abuse Patient Records regulations: The Federal rules restrict any use of the information to criminally investigate or prosecute any alcohol or drug abuse patient.[facility]In the event this information is protected by the Federal Confidentiality of Alcohol and Drug Abuse Patient Records regulations: The Federal rules restrict any use of the information to criminally investigate or prosecute any alcohol or drug abuse patient.[facility]In the event this information is protected by the Federal Confidentiality of Alcohol and Drug Abuse Patient Records regulations: The Federal rules restrict any use of the information to criminally investigate or prosecute any alcohol or drug abuse patient.[facility]In the event this information is protected by the Federal Confidentiality of Alcohol and Drug Abuse Patient Records regulations: The Federal rules restrict any use of the information to criminally investigate or prosecute any alcohol or drug abuse patient.[facility]In the event this information is protected by the Federal Confidentiality of Alcohol and Drug Abuse Patient Records regulations: The Federal rules restrict any use of the information to criminally investigate or prosecute any alcohol or drug abuse patient.[facility]In the event this information is protected by the Federal Confidentiality of Alcohol and Drug Abuse Patient Records regulations: The Federal rules restrict any use of the information to criminally investigate or prosecute any alcohol or drug abuse patient.[facility]In the event this information is protected by the Federal Confidentiality of Alcohol and Drug Abuse Patient Records regulations: The Federal rules restrict any use of the information to criminally investigate or prosecute any alcohol or drug abuse patient.[facility]In the event this information is protected by the Federal Confidentiality of Alcohol and Drug Abuse Patient Records regulations: The Federal rules restrict any use of the information to criminally investigate or prosecute any alcohol or drug abuse patient.[facility]In the event this information is protected by the Federal Confidentiality of Alcohol and Drug Abuse Patient Records regulations: The Federal rules restrict any use of the information to criminally investigate or prosecute any alcohol or drug abuse patient.[facility]In the event this information is protected by the Federal Confidentiality of Alcohol and Drug Abuse Patient Records regulations: The Federal rules restrict any use of the information to criminally investigate or prosecute any alcohol or drug abuse patient.[facility]In the event this information is protected by the Federal Confidentiality of Alcohol and Drug Abuse Patient Records regulations: The Federal rules restrict any use of the information to criminally investigate or prosecute any alcohol or drug abuse patient.[facility]In the event this information is protected by the Federal Confidentiality of Alcohol and Drug Abuse Patient Records regulations: The Federal rules restrict any use of the information to criminally investigate or prosecute any alcohol or drug abuse patient.[facility]In the event this information is protected by the Federal Confidentiality of Alcohol and Drug Abuse Patient Records regulations: The Federal rules restrict any use of the information to criminally investigate or prosecute any alcohol or drug abuse patient.[facility]In the event this information is protected by the Federal Confidentiality of Alcohol and Drug Abuse Patient Records regulations: The Federal rules restrict any use of the information to criminally investigate or prosecute any alcohol or drug abuse patient.[facility]In the event this information is protected by the Federal Confidentiality of Alcohol and Drug Abuse Patient Records regulations: The Federal rules restrict any use of the information to criminally investigate or prosecute any alcohol or drug abuse patient.[facility]In the event this information is protected by the Federal Confidentiality of Alcohol and Drug Abuse Patient Records regulations: The Federal rules restrict any use of the information to criminally investigate or prosecute any alcohol or drug abuse patient.[facility]In the event this information is protected by the Federal Confidentiality of Alcohol and Drug Abuse Patient Records regulations: The Federal rules restrict any use of the information to criminally investigate or prosecute any alcohol or drug abuse patient.[facility]In the event this information is protected by the Federal Confidentiality of Alcohol and Drug Abuse Patient Records regulations: The Federal rules restrict any use of the information to criminally investigate or prosecute any alcohol or drug abuse patient.[facility]In the event this information is protected by the Federal Confidentiality of Alcohol and Drug Abuse Patient Records regulations: The Federal rules restrict any use of the information to criminally investigate or prosecute any alcohol or drug abuse patient.[facility]In the event this information is protected by the Federal Confidentiality of Alcohol and Drug Abuse Patient Records regulations: The Federal rules restrict any use of the information to criminally investigate or prosecute any alcohol or drug abuse patient.[facility]In the event this information is protected by the Federal Confidentiality of Alcohol and Drug Abuse Patient Records regulations: The Federal rules restrict any use of the information to criminally investigate or prosecute any alcohol or drug abuse patient.[facility] InstituteIn the event this information is protected by the Federal Confidentiality of Alcohol and Drug Abuse Patient Records regulations: The Federal rules restrict any use of the information to criminally investigate or prosecute any alcohol or drug abuse patient.[facility] InstituteIn the event this information is protected by the Federal Confidentiality of Alcohol and Drug Abuse Patient Records regulations: The Federal rules restrict any use of the information to criminally investigate or prosecute any alcohol or drug abuse patient.[facility] InstituteIn the event this information is protected by the Federal Confidentiality of Alcohol and Drug Abuse Patient Records regulations: The Federal rules restrict any use of the information to criminally investigate or prosecute any alcohol or drug abuse patient.[facility] InstituteIn the event this information is protected by the Federal Confidentiality of Alcohol and Drug Abuse Patient Records regulations: The Federal rules restrict any use of the information to criminally investigate or prosecute any alcohol or drug abuse patient.[facility] InstituteIn the event this information is protected by the Federal Confidentiality of Alcohol and Drug Abuse Patient Records regulations: The Federal rules restrict any use of the information to criminally investigate or prosecute any alcohol or drug abuse patient.[facility] InstituteIn the event this information is protected by the Federal Confidentiality of Alcohol and Drug Abuse Patient Records regulations: The Federal rules restrict any use of the information to criminally investigate or prosecute any alcohol or drug abuse patient.[facility] InstituteIn the event this information is protected by the Federal Confidentiality of Alcohol and Drug Abuse Patient Records regulations: The Federal rules restrict any use of the information to criminally investigate or prosecute any alcohol or drug abuse patient.[facility] InstituteIn the event this information is protected by the Federal Confidentiality of Alcohol and Drug Abuse Patient Records regulations: The Federal rules restrict any use of the information to criminally investigate or prosecute any alcohol or drug abuse patient.[facility] InstituteIn the event this information is protected by the Federal Confidentiality of Alcohol and Drug Abuse Patient Records regulations: The Federal rules restrict any use of the information to criminally investigate or prosecute any alcohol or drug abuse patient.[facility] InstituteIn the event this information is protected by the Federal Confidentiality of Alcohol and Drug Abuse Patient Records regulations: The Federal rules restrict any use of the information to criminally investigate or prosecute any alcohol or drug abuse patient.[facility] InstituteIn the event this information is protected by the Federal Confidentiality of Alcohol and Drug Abuse Patient Records regulations: The Federal rules restrict any use of the information to criminally investigate or prosecute any alcohol or drug abuse patient.[facility] InstituteIn the event this information is protected by the Federal Confidentiality of Alcohol and Drug Abuse Patient Records regulations: The Federal rules restrict any use of the information to criminally investigate or prosecute any alcohol or drug abuse patient.[facility] InstituteIn the event this information is protected by the Federal Confidentiality of Alcohol and Drug Abuse Patient Records regulations: The Federal rules restrict any use of the information to criminally investigate or prosecute any alcohol or drug abuse patient.[facility] InstituteIn the event this information is protected by the Federal Confidentiality of Alcohol and Drug Abuse Patient Records regulations: The Federal rules restrict any use of the information to criminally investigate or prosecute any alcohol or drug abuse patient.[facility] InstituteIn the event this information is protected by the Federal Confidentiality of Alcohol and Drug Abuse Patient Records regulations: The Federal rules restrict any use of the information to criminally investigate or prosecute any alcohol or drug abuse patient.[facility] InstituteIn the event this information is protected by the Federal Confidentiality of Alcohol and Drug Abuse Patient Records regulations: The Federal rules restrict any use of the information to criminally investigate or prosecute any alcohol or drug abuse patient.[facility] InstituteIn the event this information is protected by the Federal Confidentiality of Alcohol and Drug Abuse Patient Records regulations: The Federal rules restrict any use of the information to criminally investigate or prosecute any alcohol or drug abuse patient.[facility] InstituteIn the event this information is protected by the Federal Confidentiality of Alcohol and Drug Abuse Patient Records regulations: The Federal rules restrict any use of the information to criminally investigate or prosecute any alcohol or drug abuse patient.[facility] InstituteIn the event this information is protected by the Federal Confidentiality of Alcohol and Drug Abuse Patient Records regulations: The Federal rules restrict any use of the information to criminally investigate or prosecute any alcohol or drug abuse patient.[facility] InstituteIn the event this information is protected by the Federal Confidentiality of Alcohol and Drug Abuse Patient Records regulations: The Federal rules restrict any use of the information to criminally investigate or prosecute any alcohol or drug abuse patient.[facility] InstituteIn the event this information is protected by the Federal Confidentiality of Alcohol and Drug Abuse Patient Records regulations: The Federal rules restrict any use of the information to criminally investigate or prosecute any alcohol or drug abuse patient.[facility] InstituteIn the event this information is protected by the Federal Confidentiality of Alcohol and Drug Abuse Patient Records regulations: The Federal rules restrict any use of the information to criminally investigate or prosecute any alcohol or drug abuse patient.[facility] InstituteIn the event this information is protected by the Federal Confidentiality of Alcohol and Drug Abuse Patient Records regulations: The Federal rules restrict any use of the information to criminally investigate or prosecute any alcohol or drug abuse patient.[facility] InstituteIn the event this information is protected by the Federal Confidentiality of Alcohol and Drug Abuse Patient Records regulations: The Federal rules restrict any use of the information to criminally investigate or prosecute any alcohol or drug abuse patient.[facility] InstituteIn the event this information is protected by the Federal Confidentiality of Alcohol and Drug Abuse Patient Records regulations: The Federal rules restrict any use of the information to criminally investigate or prosecute any alcohol or drug abuse patient.[facility] InstituteIn the event this information is protected by the Federal Confidentiality of Alcohol and Drug Abuse Patient Records regulations: The Federal rules restrict any use of the information to criminally investigate or prosecute any alcohol or drug abuse patient.[facility] InstituteIn the event this information is protected by the Federal Confidentiality of Alcohol and Drug Abuse Patient Records regulations: The Federal rules restrict any use of the information to criminally investigate or prosecute any alcohol or drug abuse patient.[facility] InstituteIn the event this information is protected by the Federal Confidentiality of Alcohol and Drug Abuse Patient Records regulations: The Federal rules restrict any use of the information to criminally investigate or prosecute any alcohol or drug abuse patient.[facility] InstituteIn the event this information is protected by the Federal Confidentiality of Alcohol and Drug Abuse Patient Records regulations: The Federal rules restrict any use of the information to criminally investigate or prosecute any alcohol or drug abuse patient.[facility] Reason for Visit (unrecogniz ed section and content) Reason Onset Date Comments Transition Of Care 09/14/2021 TCM Initial M [facility] Hospital Discharge 09/13/21 Reason Onset Date Comments Transition Of Care 09/14/2021 TCM Pharmacy- Hospital discharge 09/13/21 Reason Comments Recheck Hosp follow up Specialty Diagnoses / Procedures Referred By Contac t Referred To Contact Internal Medicine / INTERNAL MEDICINE Diagnoses hospital follow up Procedures 4C EST HOSP/ER Hans Izquierdo [address] [place] [address] Anjel Braga APRN.LEGAL SERVICES MANAGER [address] [place] [address] Referral ID Status Reason Start Date Expiration Date V isits Requested Visits Authorized [id number] Closed Financial Clearance Required - OON Payor Patient Cleared INN/SMCP Payor Auth Obtained 09/15/2021 06/18/2022 1 1 Reason Comments Patient Update Reason Comments Medication Problem Plan of Care Reason Comments Nifedipine issue Reason Onset Date Comments Transition Of Care 09/16/2021 TCM f/u [facility] Hospital Discharge 09/13/21 Reason Comments FYI-OT plan of care Reason Comments Anticoagulation Reason Comments Orders Reason Comments medication issue Reason Comments [facility] verbal order needed Reason Comments Medication Problem Reason Comments Consult gallbladder, abdomen pain Specialty Diagnoses / Procedures Referred By Contac t Referred To Contact General Surgery / GENERAL SURGERY Diagnoses Acute cholecystitis Abdominal pain Acute cholecystitis, persistent abdominal pain Procedures OFFICE/OUTPATIENT NEW MODERATE MDM 45-59 MINUTES NEW DDI PATIENT Adelaida Farias MD [address] [place] [address] Kaye Ortega MD [address] [place] [address] Referral ID Status Reason Start Date Expiration Date V isits Requested Visits Authorized [id number] Closed Financial Clearance Required - OON Payor Patient Cleared INN/SMCP Payor Auth Obtained 09/08/2021 06/18/2022 1 1 Reason Comments Patient Question visit from 09/15/21 Reason Comments Patient Question Reason Comments Appointment CONSULT FOR CHOLECYS TECTOMY Reason Comments Appointment Reason Onset Date Comments Transition Of Care 09/21/2021 [facility] f/u [facility] Hospital Discharge 09/13/21 Reason Comments Work excuse letter Reason Onset Date Comments Transition Of Care 09/29/2021 TCM f/u [facility] Hospital Discharge 09/13/21 Reason Onset Date Comments Refill Request 10/04/2021 Reason Comments Hypertension Specialty Diagnoses / Procedures Referred By Contac t Referred To Contact Internal Medicine / INTERNAL MEDICINE Diagnoses 09/13 ER Discharge [facility] Broken ribs follow up Procedures 4C EST HOSP/ER FU Daija Morton MD [address] [place] [address] Anjel Braga APRN.CNP [address] [place] [address] Referral ID Status Reason Start Date Expiration Date Visits Re quested Visits Authorized [id number] Closed 10/07/2021 06/18/2022 1 1 Reason Comments Coumadin update / Avilla Reason Comments Patient Update Orders Reason Comments [...] VOL VNTJ Emilie Jauregui, PA-C [address] [place] [address] [facility] [place] [address] [place] [id number] Referral ID Status Reason Start Date Expiration Date V isits Requested Visits Authorized [id number] Closed Auto-Generate d Referral 11/05/2021 06/18/2022 1 1 Specialty Diagnoses / Procedures Referred By Contac t Referred To Contact [facility] Diagnoses COPD with chronic bronchitis (HCC) Procedures OXIMETRY WITH AMBULATION NONINVASIVE EAR/PULSE OXIMETRY MULTIPLE DETER Emilie Jauregui PA-C [address] [address] [facility] [place] [address] [place] [address] Referral ID Status Reason Start Date Expiration Date V isits Requested Visits Authorized [id number] Closed Auto-Generate d Referral 11/05/2021 06/18/2022 1 1 Specialty Diagnoses / Procedures Referred By Contac t Referred To Contact Pulmonary and Critical Care Medicine / PULMONARY MEDICINE Diagnoses pre op clearance for gen surgery Procedures RI EST PULM GENERAL Daija Morton MD [address] [place] [address] Emilie Jauregui PA-C [address] [address] Referral ID Status Reason Start Date Expiration Date Visits Re quested Visits Authorized [id number] Closed 10/21/2021 06/18/2022 1 1 Reason Comments Results Reason Comments Cardiac Clearance surgery to have gall bladder removed Reason Comments UTI Specialty Diagnoses / Procedures Referred By Contac t Referred To Contact Internal Medicine / INTERNAL MEDICINE Diagnoses Essential hypertension UTI Procedures OFFICE/OUTPATIENT ESTABLISHED MOD MDM 30-39 MIN 4C EST Self Omi, CHARLES Nuno.ACE [address] [place] [address] Referral ID Status Reason Start Date Expiration Date Visits Re quested Visits Authorized [id number] Closed 11/17/2021 06/18/2022 1 1 Reason Onset Date Comments Refill Request 11/18/2021 Reason Onset Date Comments Refill Request 11/19/2021 Reason Comments Medication Request Reason Comments Clinical Update Reason Comments Patient Update Medication Request Reason Comments Appointment 01/14 ED F/U-need ED location to retrieve records Reason Comments ER F/U [facility] Specialty Diagnoses / Procedures Referred By Contac t Referred To Contact Internal Medicine / INTERNAL MEDICINE Diagnoses Follow-up [facility] f/u Procedures OFFICE/OUTPATIENT ESTABLISHED MOD MDM 30-39 MIN 4C EST HOSP/ER MD Roosevelt Marks Terri, OCCUP THER.MANAGER [employer] [address] [place] [address] Referral ID Status Reason Start Date Expiration Date Visits Re quested Visits Authorized [id number] Closed 01/14/2022 06/18/2022 1 1 Reason Comments Established Patient follow up anand r Reason Comments Recheck Follow up, Hosp foll ow up Specialty Diagnoses / Procedures Referred By Contac t Referred To Contact Internal Medicine / INTERNAL MEDICINE Diagnoses [facility] ER f/u. 01-25-22. Black stool. Procedures 4C EST HOSP/ER MD Omi Marks Joy, OCCUP THER.LEGAL SERVICES MANAGER [address] [place] [address] Referral ID Status Reason Start Date Expiration Date Visits Re quested Visits Authorized [id number] Closed 01/28/2022 04/28/2022 1 1 Reason Comments Follow Up Specialty Diagnoses / Procedures Referred By Contac t Referred To Contact Vascular Surgery / VASCULAR SURGERY Diagnoses PVD 1 year f/u with PVR and arterial Duplex [place] [address] [place] [address] [place] [address] [place] [address] Referral ID Status Reason Start Date Expiration Date Visits Re quested Visits Authorized [id number] Closed 01/31/2022 06/18/2022 1 1 Reason Comments Results, Lab Reason Onset Date Comments Refill Request 02/22/2022 Reason Comments Erroneous encounter-disregard Reason Comments Fall Reason Comments [facility] orders needed today Reason Comments admit to [facility]CC Reason Comments Social Work Services Reason Comments Medication Question Reason Comments Syncope Reason Onset Date Comments Refill Request 08/25/2022 Patient Update 08/25/2022 Reason Comments [facility] follow-up Reason Onset Date Comments Refill Request [...] fix this, also fell twice while in [facility] Reason Comments Mental status change Reason Comments No Show Reason Onset Date Comments Refill Request 01/23/2024 Reason Onset Date Comments Refill Request 03/12/2024 Reason Comments UTI Foul odor, confusion Reason Comments Home Health Orders Reason Comments [facility] update Reason Comments Home Care Management Patient Update Reason Comments [facility] discharge [facility] Reason Onset Date Comments Refill Request 12/13/2024 Reason Comments [facility] requesting records Reason Onset Date Comments Refill Request 12/16/2024 Reason Onset Date Comments Refill Request 01/17/2025 Care Teams (unrecognized sec tion and content) Meal Cook Relationship Specialty Start Date End Date Daija Morton MD [address] [place], [place] [id number] PCP - General Internal Medicine 03/21/17 Beatriz Correa, LEGAL SERVICES MANAGER Referring 09/28/20 Daija Morton MD [address] [place], [place] [address] Home Care Physician Internal Medicine 09/28/20 13, Pharmacist [phone] [place] [address] Pharmacist Pharmacy 06/17/21 Lizette Ulloa, RN [address] [place] [address] Primary Care Supply Person Internal Medicine 09/14/21 10/14/21 Tamika Almaguer PASSPORT Actuarial Science Professor 09/26/17 Meal Cook Relationship Specialty Start Date End Date Daija Morton MD [address] [place] [address] PCP - General Internal Medicine 03/21/17 Beatriz Correa, LEGAL SERVICES MANAGER Referring 09/28/20 Daija Morton MD [address] [place] [address] Home Care Physician Internal Medicine 09/28/20 13, Pharmacist [phone] [place] [address] Pharmacist Pharmacy 06/17/21 Lizette Ulloa, [place] [place] [address] Primary Care Supply Person Internal Medicine 09/14/21 10/14/21 Tamika HARRELL Actuarial Science Professor 09/26/17 Meal Cook Relationship Specialty Start Date End Date Daija Morton MD [address] [place] [address] PCP - General Internal Medicine 03/21/17 Beatriz Correa, LEGAL SERVICES MANAGER Referring 09/28/20 Daija Morton MD [address] [place] [address] Home Care Physician Internal Medicine 09/28/20 13, Pharmacist [phone] [place] [address] Pharmacist Pharmacy 06/17/21 Lizette Ulloa, [address] [place] [address] Primary Care Supply Person Internal Medicine 09/14/21 10/14/21 Tamika Almaguer PASSPORT Actuarial Science Professor 09/26/17 Meal Cook Relationship Specialty Start Date End Date Daija Morton MD [address] [place] [address] PCP - General Internal Medicine 03/21/17 Beatriz Correa CNP Referring 09/28/20 Daija Morton MD [address] [place] [address] Home Care Physician Internal Medicine 09/28/20 13, Pharmacist [phone] [place] [address] Pharmacist Pharmacy 06/17/21 Lizette Ulloa, [address] [place] [address] Primary Care Supply Person Internal Medicine 09/14/21 10/14/21 Tamika HARRELL Actuarial Science Professor 09/26/17 Meal Cook Relationship Specialty Start Date End Date Daija Morton MD [address] [place] [address] PCP - General Internal Medicine 03/21/17 Beatriz Correa CNP Referring 09/28/20 Daija Morton MD [address] [place] [address] Home Care Physician Internal Medicine 09/28/20 13, Pharmacist [phone] [place] [address] Pharmacist Pharmacy 06/17/21 Lizette Ulloa, [place] [place] [address] Primary Care Supply Person Internal Medicine 09/14/21 10/14/21 Tamika HARRELL Actuarial Science Professor 09/26/17 Meal Cook Relationship Specialty Start Date End Date Daija Morton MD [address] [place] [address] PCP - General Internal Medicine 03/21/17 Beatriz Correa CNP Referring 09/28/20 Daija Morton MD [address] [place] [address] Home Care Physician Internal Medicine 09/28/20 13, Pharmacist [phone] [place] [address] Pharmacist Pharmacy 06/17/21 Lizette Ulloa RN [address] [place] [address] Primary Care Supply Person Internal Medicine 09/14/21 10/14/21 Tamika Almaguer PASSPORT Actuarial Science Professor 09/26/17 Meal Cook Relationship Specialty Start Date End Date Daija Morton MD [address] [place] [address] PCP - General Internal Medicine 03/21/17 Beatriz Correa CNP Referring 09/28/20 Daija Morton MD [address] [place] [address] Home Care Physician Internal Medicine 09/28/20 13, Pharmacist [phone] [place] [address] Pharmacist Pharmacy 06/17/21 Lizette Ulloa RN [address] [place] [address] Primary Care Supply Person Internal Medicine 09/14/21 10/14/21 Tamika HARRELL Actuarial Science Professor 09/26/17 Meal Cook Relationship Specialty Start Date End Date Daija Morton MD [address] [place] [address] PCP - General Internal Medicine 03/21/17 Beatriz Correa CNP Referring 09/28/20 Daija Morton MD [address] [place] [address] Home Care Physician Internal Medicine 09/28/20 13, Pharmacist [address] [place] [address] Pharmacist Pharmacy 06/17/21 Lizette Ulloa RN [address] [address] Primary Care Supply Person Internal Medicine 09/14/21 10/14/21 Kaye Ortega MD [address] [place] [address] General Surgery 09/21/21 Tamika Almaguer PASSANYI Actuarial Science Professor 09/26/17 Meal Cook Relationship Specialty Start Date End Date Daija Morton MD [address] [facility] [place] [address] PCP - General Internal Medicine 03/21/17 Beatriz Correa, LEGAL SERVICES MANAGER Referring 09/28/20 Daija Morton MD [address] [facility] [place] [address] Home Care Physician Internal Medicine 09/28/20 13, Pharmacist [phone] [place] [address] Pharmacist Pharmacy 06/17/21 Lizette Ulloa RN [address] [facility] [address] Primary Care Supply Person Internal Medicine 09/14/21 10/14/21 Kaye Ortega MD [address] [place] [address] General Surgery 09/21/21 Tamika HARRELL Actuarial Science Professor 09/26/17 Meal Cook Relationship Specialty Start Date End Date Daija Morton MD [address] [facility] [place] [address] PCP - General Internal Medicine 03/21/17 Beatriz Correa, LEGAL SERVICES MANAGER Referring 09/28/20 Daija Morton MD [address] [facility] [place] [address] Home Care Physician Internal Medicine 09/28/20 13, Pharmacist [address] [place] [address] Pharmacist Pharmacy 06/17/21 Lizette Ulloa, [address] [place] [address] Primary Care Supply Person Internal Medicine 09/14/21 10/14/21 Kaye Ortega MD [address] [place] [address] General Surgery 09/21/21 Tamika Almaguer PASSPORT Actuarial Science Professor 09/26/17 Meal Cook Relationship Specialty Start Date End Date Daija Morton MD [address] [place] [address] PCP - General Internal Medicine 03/21/17 Beatriz Correa CNP Referring 09/28/20 Daija Morton MD [address] [place] [address] Home Care Physician Internal Medicine 09/28/20 13, Pharmacist [phone] [place] [address] Pharmacist Pharmacy 06/17/21 Lizette Ulloa, [place] [place] [address] Primary Care Supply Person Internal Medicine 09/14/21 10/14/21 Kaye Ortega MD [address] [place] [address] General Surgery 09/21/21 Tamika HARRELL Actuarial Science Professor 09/26/17 Meal Cook Relationship Specialty Start Date End Date Daija Morton MD [address] [place] [address] PCP - General Internal Medicine 03/21/17 Beatriz Correa CNP Referring 09/28/20 Daija Morton MD [address] [place] [address] Home Care Physician Internal Medicine 09/28/20 13, Pharmacist [address] [place] [address] Pharmacist Pharmacy 06/17/21 Lizette Ulloa RN [address] [place] [address] Primary Care Supply Person Internal Medicine 09/14/21 10/14/21 Kaye Ortega MD [address] [place] [address] General Surgery 09/21/21 Tamika HARRELL Actuarial Science Professor 09/26/17 Meal Cook Relationship Specialty Start Date End Date Daija Morton MD [address] [place] [address] PCP - General Internal Medicine 03/21/17 Beatriz Correa, LEGAL SERVICES MANAGER Referring 09/28/20 Daija Morton MD [address] [place] [address] Home Care Physician Internal Medicine 09/28/20 13, Pharmacist [phone] [place] [address] Pharmacist Pharmacy 06/17/21 Lizette Ulloa, [address] [place] [address] Primary Care Supply Person Internal Medicine 09/14/21 10/14/21 Kaye Ortega MD [address] [place] [address] General Surgery 09/21/21 Tamika HARRELL Actuarial Science Professor 09/26/17 Meal Cook Relationship Specialty Start Date End Date Daija Morton MD [address] [place] [address] PCP - General Internal Medicine 03/21/17 Beatriz Correa, LEGAL SERVICES MANAGER Referring 09/28/20 Daija Morton MD [address] [place], [place] [address] [phone] Home Care Physician Internal Medicine 09/28/20 Fco Franklin, [address] [place] [address] Electrotherapist 10/08/20 12/21/20 13, Pharmacist [phone] [place] [address] Pharmacist Pharmacy 06/17/21 Lizette Ulloa RN [address] [facility] [place] [phone] Primary Care Supply Person Internal Medicine 09/14/21 10/14/21 Kaye Ortega MD [address] [facility] [place] [id number] General Surgery 09/21/21 Tamika [facility] Actuarial Science Professor 09/26/17 Meal Cook Relationship Specialty Start Date End Date Daija Morton MD [address] [place] [address] PCP - General Internal Medicine 03/21/17 Beatriz Correa, LEGAL SERVICES MANAGER Referring 09/28/20 Daija Morton MD [address] [place] [address] Home Care Physician Internal Medicine 09/28/20 13, Pharmacist [phone] [place] [address] Pharmacist Pharmacy 06/17/21 Lizette Ulloa RN [address] [facility] [place] [address] Primary Care Supply Person Internal Medicine 09/14/21 10/14/21 Kaye Ortega MD [address] [place] [phone] General Surgery 09/21/21 Tamika Almaguer PASSANYI Actuarial Science Professor 09/26/17 Meal Cook Relationship Specialty Start Date End Date Daija Morton MD [address] [place], [place] [id number] PCP - General Internal Medicine 03/21/17 Beatriz Correa, ACE Referring 09/28/20 10/12/21 Daija Morton MD [address] [place], [place] 780011 Home Care Physician Internal Medicine 09/28/20 10/12/21 13, Pharmacist [address] [place], [place] [phone] Pharmacist Pharmacy 06/17/21 Lizette Ulloa, RN [address] [place], [place] [id number] Primary Care Supply Person Internal Medicine 09/14/21 10/14/21 Kaye Ortega MD [address] [place] [address]342 General Surgery 09/21/21 Ye Coello MD [address] [place], [place] [id number] General Surgery 10/13/21 Emilie Jauregui, PA-C [address] [place] [address] Specialty Historian Research Assistant Pulmonary and Critical Care Medicine 10/13/21 Ryan May MD [address] [place], [place] [id number] Specialty Historian Research Assistant Vascular Surgery 10/13/21 Geronimo Medina DO [address] [address] Rehabilitation Aide Cardiology 10/13/21 Tamika Almaguer PASSPORT Actuarial Science Professor 09/26/17 Meal Cook Relationship Specialty Start Date End Date Daija Morton MD [address] [place], [place] 952571 PCP - General Internal Medicine 03/21/17 13, Pharmacist [address] [place] [address] Pharmacist Pharmacy 06/17/21 Lizette Ulloa, SEYMOUR [address] [place] [address] Primary Care Supply Person Internal Medicine 09/14/21 10/14/21 Kaye Ortega MD [address] [place] [phone] General Surgery 09/21/21 Ye Coello MD [address] [place], [place] [id number] General Surgery 10/13/21 Emilie Jauregui PA-C [address] [place], [place] 84616691 Specialty Historian Research Assistant Pulmonary and Critical Care Medicine 10/13/21 Ryan May MD 7625 [place] [address] Specialty Historian Research Assistant Vascular Surgery 10/13/21 Geronimo Medina, DO [address] [address] Rehabilitation Aide Cardiology 10/13/21 Tamika Almaguer [employer] Actuarial Science Professor 09/26/17 Meal Cook Relationship Specialty Start Date End Date Daija Morton MD [address] [place], [place] [id number] PCP - General Internal Medicine 03/21/17 Beatriz Correa, LEGAL SERVICES MANAGER Referring 09/28/20 10/12/21 Daija Morton MD [address] [place] [address] Home Care Physician Internal Medicine 09/28/20 10/12/21 13, Pharmacist [address] [place] [address] Pharmacist Pharmacy 06/17/21 Lizette Ulloa RN [address] [place] [address] Primary Care Supply Person Internal Medicine 09/14/21 10/14/21 Kaye Ortega MD [address] [place] [address] General Surgery 09/21/21 Ye Coello MD [address] [place], [place] [id number] General Surgery 10/13/21 Emilie Jauregui PA-Edilma [address] [place] [address] Specialty Historian Research Assistant Pulmonary and Critical Care Medicine 10/13/21 Ryan May MD 8796 [place] [address] Specialty Historian Research Assistant Vascular Surgery 10/13/21 Geronimo Medina, DO [address] [address] Rehabilitation Aide Cardiology 10/13/21 Tamika Almaguer [facility] Actuarial Science Professor 09/26/17 Meal Cook Relationship Specialty Start Date End Date Daija Morton MD [address] [place], [place] 564671 PCP - General Internal Medicine 03/21/17 13, Pharmacist [address] [place] [address] Pharmacist Pharmacy 06/17/21 Lizette Ulloa RN [address] [place] [address] Primary Care Supply Person Internal Medicine 09/14/21 10/14/21 Kaye Ortega MD [address] [place] [address] General Surgery 09/21/21 Ye Coello MD [address] [place], [place] [id number] General Surgery 10/13/21 Emilie Jauregui PA-C [address] [place] [place], [place] 46587691 Specialty Historian Research Assistant Pulmonary and Critical Care Medicine 10/13/21 Ryan May MD [address]00 [place] [address] Specialty Historian Research Assistant Vascular Surgery 10/13/21 Geronimo Medina DO [address] [address] Rehabilitation Aide Cardiology 10/13/21 Tamika Almaguer [facility] Actuarial Science Professor 09/26/17 Meal Cook Relationship Specialty Start Date End Date Daija Morton MD [address] [place] [address] PCP - General Internal Medicine 03/21/17 13, Pharmacist [address] [place] [address] Pharmacist Pharmacy 06/17/21 Kaye Ortega MD [address] [place] [address] General Surgery 09/21/21 Ye Coello MD [address] [place], [place] [id number] General Surgery 10/13/21 Emilie Jauregui PA-C [address] [place] [address] Specialty Historian Research Assistant Pulmonary and Critical Care Medicine 10/13/21 Ryan May MD [address] [place], [place] 5510195 Specialty Historian Research Assistant Vascular Surgery 10/13/21 Geronimo Medina, [address] [address] Rehabilitation Aide Cardiology 10/13/21 Tamika HARRELL Actuarial Science Professor 09/26/17 Meal Cook Relationship Specialty Start Date End Date Daija Morton MD [address] [place] [address] PCP - General Internal Medicine 03/21/17 13, Pharmacist [address] [place] [address] Pharmacist Pharmacy 06/17/21 Kaye Ortega MD [address] [place] [address] General Surgery 09/21/21 Ye Coello MD [address] [place] [address] General Surgery 10/13/21 Emilie Jauregui PA-C [address] [place] [address] Specialty Historian Research Assistant Pulmonary and Critical Care Medicine 10/13/21 Ryan May MD [address] [facility] [place] [address] Specialty Historian Research Assistant Vascular Surgery 10/13/21 Geronimo Medina, [address] [address] Rehabilitation Aide Cardiology 10/13/21 Tamika HARRELL Actuarial Science Professor 09/26/17 Meal Cook Relationship Specialty Start Date End Date Daija Morton MD [address] [place] [address] PCP - General Internal Medicine 03/21/17 13, Pharmacist [address] [place] [address] Pharmacist Pharmacy 06/17/21 Kaye Ortega MD [address] [place] [address] General Surgery 09/21/21 Ye Coello MD [address] [place], [place] [id number] General Surgery 10/13/21 Emilie Jauregui PA-C [address] [place] [address] Specialty Historian Research Assistant Pulmonary and Critical Care Medicine 10/13/21 Ryan May MD [address]00 [place] [address] Specialty Historian Research Assistant Vascular Surgery 10/13/21 Geronimo Medina, DO [address] [address] Rehabilitation Aide Cardiology 10/13/21 Tamika Almaguer [employer] Actuarial Science Professor 09/26/17 Meal Cook Relationship Specialty Start Date End Date Daija Morton MD [address] [place] [address] PCP - General Internal Medicine 03/21/17 13, Pharmacist [address] [place] [address] Pharmacist Pharmacy 06/17/21 Kaye Ortega MD [address] [place] [address] General Surgery 09/21/21 Ye Coello MD [address] [place], [place] [id number] General Surgery 10/13/21 Emilie Jauregui PA-C [address] [place] [address] Specialty Historian Research Assistant Pulmonary and Critical Care Medicine 10/13/21 Ryan May MD [address] [place], [place] 6420695 Specialty Historian Research Assistant Vascular Surgery 10/13/21 Geronimo Medina, [address] [address] Rehabilitation Aide Cardiology 10/13/21 Tamiak Almaguer [facility] Actuarial Science Professor 09/26/17 Meal Cook Relationship Specialty Start Date End Date Daija Morton MD [address] [place] [address] PCP - General Internal Medicine 03/21/17 13, Pharmacist [address] [place] [address] Pharmacist Pharmacy 06/17/21 Kaye Ortega MD [address] [place] [address] General Surgery 09/21/21 Ye Coello MD [address] [place], [place] 12284685 General Surgery 10/13/21 Emilie Jauregui PA-C [address] [place] [address] Specialty Historian Research Assistant Pulmonary and Critical Care Medicine 10/13/21 Ryan May MD [address] [place], [place] 2754295 Specialty Historian Research Assistant Vascular Surgery 10/13/21 Geronimo Medina DO [address] [address] Rehabilitation Aide Cardiology 10/13/21 Tamika HARRELL Actuarial Science Professor 09/26/17 Meal Cook Relationship Specialty Start Date End Date Daija Morton MD [address] [place] [address] PCP - General Internal Medicine 03/21/17 13, Pharmacist [address] [place] [address] Pharmacist Pharmacy 06/17/21 Kaye Ortega MD [address] [place] [address] General Surgery 09/21/21 Ye Coello MD [address] [place], [place] [id number] General Surgery 10/13/21 Emilie Jauregui PA-C [address] [place], [place] 382921 Specialty Historian Research Assistant Pulmonary and Critical Care Medicine 10/13/21 Ryan May MD [address] [place] [address] Specialty Historian Research Assistant Vascular Surgery 10/13/21 Geronimo Medina DO [address] [address] Rehabilitation Aide Cardiology 10/13/21 Tamika HARRELL Actuarial Science Professor 09/26/17 Meal Cook Relationship Specialty Start Date End Date Daija Morton MD [address] [place] [address] PCP - General Internal Medicine 03/21/17 13, Pharmacist [address] [place] [address] Pharmacist Pharmacy 06/17/21 Kaye Ortega MD [address] [place] [address] General Surgery 09/21/21 Ye Coello MD [address] [place], [place] [id number] General Surgery 10/13/21 Emilie Jauregui PA-C [address] [place] [address] Specialty Historian Research Assistant Pulmonary and Critical Care Medicine 10/13/21 Ryan May MD [address] [place] [address] Specialty Historian Research Assistant Vascular Surgery 10/13/21 Geronimo Medina DO [address] [address] Rehabilitation Aide Cardiology 10/13/21 Tamika Almaguer [facility] Actuarial Science Professor 09/26/17 Meal Cook Relationship Specialty Start Date End Date Daija Morton MD [address] [place] [address] PCP - General Internal Medicine 03/21/17 13, Pharmacist [address] [place] [address] Pharmacist Pharmacy 06/17/21 Kaye Ortega MD [address] [place] [address] General Surgery 09/21/21 Ye Coello MD [address] [place], [place] [id number] General Surgery 10/13/21 Emilie Jauregui PA-C [address] [place] [address] Specialty Historian Research Assistant Pulmonary and Critical Care Medicine 10/13/21 Ryan May MD [address] [facility] [place] [address] Specialty Historian Research Assistant Vascular Surgery 10/13/21 Geronimo Medina, [address] [address] Rehabilitation Aide Cardiology 10/13/21 Tamika HARRELL Actuarial Science Professor 09/26/17 Meal Cook Relationship Specialty Start Date End Date Daija Morton MD [address] [place] [address] PCP - General Internal Medicine 03/21/17 13, Pharmacist [address] [place] [address] Pharmacist Pharmacy 06/17/21 Kaye Ortega MD [address] [place] [address] General Surgery 09/21/21 Ye Coello MD [address] [place] [address] General Surgery 10/13/21 Emilie Jaruegui PA-C [address] [place] [address] Specialty Historian Research Assistant Pulmonary and Critical Care Medicine 10/13/21 Ryan May MD [address] [facility] [place] [address] Specialty Historian Research Assistant Vascular Surgery 10/13/21 Geronimo Medina, [address] [address] Rehabilitation Aide Cardiology 10/13/21 Tamika HARRELL Actuarial Science Professor 09/26/17 Meal Cook Relationship Specialty Start Date End Date Daija Morton MD [address] [place] [address] PCP - General Internal Medicine 03/21/17 13, Pharmacist [address] [place] [address] Pharmacist Pharmacy 06/17/21 Kaye Ortega MD [address] [place] [phone] General Surgery 09/21/21 Ye Coello MD [address] [place], [place] [id number] General Surgery 10/13/21 Emilie Jauregui PA-C [address] [place], [place] 86060691 Specialty Historian Research Assistant Pulmonary and Critical Care Medicine 10/13/21 Ryan May MD [address]00 [place] [address] Specialty Historian Research Assistant Vascular Surgery 10/13/21 Geronimo Medina, DO [address] [address] Rehabilitation Aide Cardiology 10/13/21 Tamika HARRELL Actuarial Science Professor 09/26/17 Meal Cook Relationship Specialty Start Date End Date Daija Morton MD [address] [place] [address] PCP - General Internal Medicine 03/21/17 13, Pharmacist [address] [place] [address] Pharmacist Pharmacy 06/17/21 Kaye Ortega MD [address] [place] [address] General Surgery 09/21/21 Ye Coello MD [address] [place], [place] [id number] General Surgery 10/13/21 Emilie Jauregui PA-C [address] [place] [address] Specialty Historian Research Assistant Pulmonary and Critical Care Medicine 10/13/21 Ryan May MD [address] [place], [place] 9957095 Specialty Historian Research Assistant Vascular Surgery 10/13/21 Geronimo Medina DO [address] [address] Rehabilitation Aide Cardiology 10/13/21 Tamika Almaguer [facility] Actuarial Science Professor 09/26/17 Meal Cook Relationship Specialty Start Date End Date aDija Morton MD [address] [place] [address] PCP - General Internal Medicine 03/21/17 13, Pharmacist [address] [place] [address] Pharmacist Pharmacy 06/17/21 Kaye Ortega MD [address] [place] [address] General Surgery 09/21/21 Ye Coello MD [address] [place] [address] General Surgery 10/13/21 Emilie Jauregui PA-C [address] [place], [place] [address] Specialty Historian Research Assistant Pulmonary and Critical Care Medicine 10/13/21 Ryan May MD 4012 [place] [address] Specialty Historian Research Assistant Vascular Surgery 10/13/21 Geronimo Medina DO [address] [address] Rehabilitation Aide Cardiology 10/13/21 Tamika HARRELL Actuarial Science Professor 09/26/17 Meal Cook Relationship Specialty Start Date End Date Daija Morton MD [address] [place] [address] PCP - General Internal Medicine 03/21/17 13, Pharmacist [address] [place] [address] Pharmacist Pharmacy 06/17/21 Kaye Ortega MD [address] [place] [address] General Surgery 09/21/21 Ye Coello MD [address] [place], [place] [id number] General Surgery 10/13/21 Emilie Jauregui PA-C [address] [place], [place] 623221 Specialty Historian Research Assistant Pulmonary and Critical Care Medicine 10/13/21 Ryan May MD [address]50 [place] [address] Specialty Historian Research Assistant Vascular Surgery 10/13/21 Geronimo Medina DO [address] [address] Rehabilitation Aide Cardiology 10/13/21 Tamika HARRELL Actuarial Science Professor 09/26/17 Meal Cook Relationship Specialty Start Date End Date Daija Morton MD [address] [place] [address] PCP - General Internal Medicine 03/21/17 13, Pharmacist [address] [place] [address] Pharmacist Pharmacy 06/17/21 Kaye Ortega MD [address] [place] [address] General Surgery 09/21/21 Ye Coello MD [address] [place], [place] [id number] General Surgery 10/13/21 Emilie Jauregui PA-C [address] [place] [address] Specialty Historian Research Assistant Pulmonary and Critical Care Medicine 10/13/21 Ryan May MD [address] [place] [address] Specialty Historian Research Assistant Vascular Surgery 10/13/21 Geronimo Medina, [address] [address] Rehabilitation Aide Cardiology 10/13/21 Tamika Almaguer [facility] Actuarial Science Professor 09/26/17 Meal Cook Relationship Specialty Start Date End Date Daija Morton MD [address] [place] [address] PCP - General Internal Medicine 03/21/17 13, Pharmacist [address] [place] [address] Pharmacist Pharmacy 06/17/21 Kaye Ortega MD [address] [place] [address] General Surgery 09/21/21 Ye Coello MD [address] [place], [place] [id number] General Surgery 10/13/21 Emilie Jauregui PA-C [address] [place] [address] Specialty Historian Research Assistant Pulmonary and Critical Care Medicine 10/13/21 Ryan May MD [address] [facility] [place] [address] Specialty Historian Research Assistant Vascular Surgery 10/13/21 Geronimo Medina, [address] [address] Rehabilitation Aide Cardiology 10/13/21 Tamika HARRELL Actuarial Science Professor 09/26/17 Meal Cook Relationship Specialty Start Date End Date Daija Morton MD [address] [place] [address] PCP - General Internal Medicine 03/21/17 13, Pharmacist [address] [place] [address] Pharmacist Pharmacy 06/17/21 Kaye Ortega MD [address] [place] [address] General Surgery 09/21/21 Ye Coello MD [address] [place], [place] [id number] General Surgery 10/13/21 Emilie Jauregui PA-C [address] [place] [address] Specialty Historian Research Assistant Pulmonary and Critical Care Medicine 10/13/21 Ryan May MD [address] [place] [address] Specialty Historian Research Assistant Vascular Surgery 10/13/21 Geronimo Medina, [address] [address] Rehabilitation Aide Cardiology 10/13/21 Tamika HARRELL Actuarial Science Professor 09/26/17 Meal Cook Relationship Specialty Start Date End Date Daija Morton MD [address] [place] [address] PCP - General Internal Medicine 03/21/17 13, Pharmacist [address] [place] [address] Pharmacist Pharmacy 06/17/21 Kaye Ortega MD [address] [place] [address] General Surgery 09/21/21 Ye Coello MD [address] [place], [place] [id number] General Surgery 10/13/21 Emilie Jauregui PA-C [address] [place] [address] Specialty Historian Research Assistant Pulmonary and Critical Care Medicine 10/13/21 Ryan May MD [address]00 [place] [address] Specialty Historian Research Assistant Vascular Surgery 10/13/21 Geronimo Medina, [address] [address] Rehabilitation Aide Cardiology 10/13/21 Tamika Almaguer PASSANYI Actuarial Science Professor 09/26/17 Meal Cook Relationship Specialty Start Date End Date Daija Morton MD [address] [place] [address] PCP - General Internal Medicine 03/21/17 13, Pharmacist [address] [place] [address] Pharmacist Pharmacy 06/17/21 Kaye Ortega MD [address] [place] [address] General Surgery 09/21/21 Ye Coello MD [address] [place], [place] [id number] General Surgery 10/13/21 Emilie Jauregui PA-C [address] [place] [address] Specialty Historian Research Assistant Pulmonary and Critical Care Medicine 10/13/21 Ryan May MD [address] [place], [place] 6889695 Specialty Historian Research Assistant Vascular Surgery 10/13/21 Geronimo Medina, [address] [id number] Rehabilitation Aide Cardiology 10/13/21 Tamikadestiny Almaguer [employer] Actuarial Science Professor 09/26/17 Meal Cook Relationship Specialty Start Date End Date Daija Morton MD [address] [place] [address] PCP - General Internal Medicine 03/21/17 13, Pharmacist [address] [place] [address] Pharmacist Pharmacy 06/17/21 Kaye Ortega MD [address] [place] [address] General Surgery 09/21/21 Ye Coello MD [address] [place] [address] General Surgery 10/13/21 Emilie Jauregui PA-C [address] [place] [address] Specialty Historian Research Assistant Pulmonary and Critical Care Medicine 10/13/21 Ryan May MD 43[address] [place], [place] 9060995 Specialty Historian Research Assistant Vascular Surgery 10/13/21 Geronimo Medina DO [address] [address] Rehabilitation Aide Cardiology 10/13/21 Tamika HARRELL Actuarial Science Professor 09/26/17 Meal Cook Relationship Specialty Start Date End Date Daija Morton MD [address] [place] [address] PCP - General Internal Medicine 03/21/17 13, Pharmacist [address] [place] [address] Pharmacist Pharmacy 06/17/21 Kaye Ortega MD [address] [place] [address] General Surgery 09/21/21 Ye Coello MD [address] [place], [place] [id number] General Surgery 10/13/21 Emilie Jauregui PA-C [address] [place], [place] 233003 [phone] Specialty Historian Research Assistant Pulmonary and Critical Care Medicine 10/13/21 Ryan May MD [address] [place], [place] 5903795 Specialty Historian Research Assistant Vascular Surgery 10/13/21 Geronimo Medina DO [address] [address] Rehabilitation Aide Cardiology 10/13/21 Tamika HARRELL Actuarial Science Professor 09/26/17 Meal Cook Relationship Specialty Start Date End Date Daija Morton MD [address] [place] [address] PCP - General Internal Medicine 03/21/17 13, Pharmacist [address] [place] [address] Pharmacist Pharmacy 06/17/21 Kaye Ortega MD [address] [place] [address] General Surgery 09/21/21 Ye Coello MD [address] [place], [place] 77029685 General Surgery 10/13/21 Emilie Jauregui PA-C [address] [place] [address] Specialty Historian Research Assistant Pulmonary and Critical Care Medicine 10/13/21 Ryan May MD [address] [place], [place] 9548895 Specialty Historian Research Assistant Vascular Surgery 10/13/21 Geronimo Medina DO [address] [address] Rehabilitation Aide Cardiology 10/13/21 Tamika Almaguer [employer] Actuarial Science Professor 09/26/17 Meal Cook Relationship Specialty Start Date End Date Daija Morton MD [address] [place], [place] [address] [phone] PCP - General Internal Medicine 03/21/17 13, Pharmacist [address] [place], [place] 7280511 Pharmacist Pharmacy 06/17/21 Kaye Ortega MD [address] [place] [address] General Surgery 09/21/21 Ye Coello MD [address] [place], [place] 8[address]85 General Surgery 10/13/21 Emilie Jauregui PA-C [address] [place] [address] Specialty Historian Research Assistant Pulmonary and Critical Care Medicine 10/13/21 Ryan May MD [address] [place] [address] Specialty Historian Research Assistant Vascular Surgery 10/13/21 Geronimo Medina DO [address] [address] Rehabilitation Aide Cardiology 10/13/21 Tamika HARRELL Actuarial Science Professor 09/26/17 Meal Cook Relationship Specialty Start Date End Date Daija Morton MD [address] [place] [address] PCP - General Internal Medicine 03/21/17 13, Pharmacist [address] [place] [address] Pharmacist Pharmacy 06/17/21 Kaye Ortega MD [address] [place] [address] General Surgery 09/21/21 Ye Coello MD [address] [place], [place] [id number] General Surgery 10/13/21 Emilie Jauregui PA-C [address] [place], [place] 367791 Specialty Historian Research Assistant Pulmonary and Critical Care Medicine 10/13/21 Ryan May MD [address] [place] [address] Specialty Historian Research Assistant Vascular Surgery 10/13/21 Geronimo Medina DO [address] [address] Rehabilitation Aide Cardiology 10/13/21 Tamika HARRELL Actuarial Science Professor 09/26/17 Meal Cook Relationship Specialty Start Date End Date Daija Morton MD [address] [place] [address] PCP - General Internal Medicine 03/21/17 13, Pharmacist [address] [place] [address] Pharmacist Pharmacy 06/17/21 Kaye Ortega MD [address] [place] [address] General Surgery 09/21/21 Ye Coello MD [address] [place], [place] [id number] General Surgery 10/13/21 Emilie Jauregui PA-C [address] [place] [address] Specialty Historian Research Assistant Pulmonary and Critical Care Medicine 10/13/21 Ryan May MD [address] [place] [address] Specialty Historian Research Assistant Vascular Surgery 10/13/21 Geronimo Medina, [address] [id number] Rehabilitation Aide Cardiology 10/13/21 Tamika Almaguer [facility] Actuarial Science Professor 09/26/17 Meal Cook Relationship Specialty Start Date End Date Daija Morton MD [address] [place], [place] [id number] [phone] PCP - General Internal Medicine 03/21/17 13, Pharmacist [address] [place] [address] Pharmacist Pharmacy 06/17/21 Kaye Ortega MD [address] [place] [address] General Surgery 09/21/21 Ye Coello MD [address] [place], [place] [id number] General Surgery 10/13/21 Emilie Jauregui PA-C [address] [place] [address] Specialty Historian Research Assistant Pulmonary and Critical Care Medicine 10/13/21 Ryan May MD [address] [place], [place] 4305095 Specialty Historian Research Assistant Vascular Surgery 10/13/21 Geronimo Medina, DO [address] [address] Rehabilitation Aide Cardiology 10/13/21 Tamika Almaguer [facility] Actuarial Science Professor 09/26/17 Meal Cook Relationship Specialty Start Date End Date Daija Morton MD [address] [place] [address] PCP - General Internal Medicine 03/21/17 13, Pharmacist [address] [place] [address] Pharmacist Pharmacy 06/17/21 Kaye Ortega MD [address] [place] [address] General Surgery 09/21/21 Ye Coello MD [address] [place] [address] General Surgery 10/13/21 Emilie Jauregui PA-C [address] [place] [address] Specialty Historian Research Assistant Pulmonary and Critical Care Medicine 10/13/21 Ryan May MD [address] [place], [place] 7919795 Specialty Historian Research Assistant Vascular Surgery 10/13/21 Geronimo Medina DO [address] [address] Rehabilitation Aide Cardiology 10/13/21 Tamika Almaguer [employer] Actuarial Science Professor 09/26/17 Meal Cook Relationship Specialty Start Date End Date Daija Morton MD [address] [place] [address] PCP - General Internal Medicine 03/21/17 13, Pharmacist [address] [place] [address] Pharmacist Pharmacy 06/17/21 Kaye Ortega MD [address] [place] [address] General Surgery 09/21/21 Ye Coello MD [address] [place], [place] 463975 General Surgery 10/13/21 Emilie Jauregui PA-C [address] [place] [address] Specialty Historian Research Assistant Pulmonary and Critical Care Medicine 10/13/21 Ryan May MD [address] [place], [place] [id number] Specialty Historian Research Assistant Vascular Surgery 10/13/21 Geronimo Medina, DO [address] [address] Rehabilitation Aide Cardiology 10/13/21 Tamika Almaguer [employer] Actuarial Science Professor 09/26/17 Meal Cook Relationship Specialty Start Date End Date Daija Morton MD [address] [place] [address] PCP - General Internal Medicine 03/21/17 13, Pharmacist [address] [place] [address] Pharmacist Pharmacy 06/17/21 04/12/22 Kaye Ortega MD [address] [place] [address] General Surgery 09/21/21 Ye Coello MD [address] [place], [place] [id number] General Surgery 10/13/21 Emilie Jauregui PA-C [address] [place], [place] [address]33[address] Specialty Historian Research Assistant Pulmonary and Critical Care Medicine 10/13/21 Ryan May MD [address] [facility] [place] [address] Specialty Historian Research Assistant Vascular Surgery 10/13/21 Geronimo Medina DO [address] [id number] Rehabilitation Aide Cardiology 10/13/21 Tamika Canales [facility] Actuarial Science Professor 09/26/17 Team Status: Active Member Role Status [...] Provider Active Андрей Cooley Attending Provider Active Meal Cook Relationship Specialty Start Date End Date Daija Morton MD [address] [place], [place] [id number] [phone] PCP - General Internal Medicine 03/21/17 Kaye Ortega MD [address] [place] [address] General Surgery 09/21/21 Ye Coello MD [address] [facility] [place], [place] [id number] General Surgery 10/13/21 Emilie Jauregui PA-C [address] [place] [address] Specialty Historian Research Assistant Pulmonary and Critical Care Medicine 10/13/21 Ryan May MD [address] [place] [address] Specialty Historian Research Assistant Vascular Surgery 10/13/21 Geronimo Medina, [address] [address] Rehabilitation Aide Cardiology 10/13/21 Tamika HARRELL Actuarial Science Professor 09/26/17 Meal Cook Relationship Specialty Start Date End Date Daija Morton MD [address] [place] [address] PCP - General Internal Medicine 03/21/17 Kaye Ortega MD [address] [place] [address] General Surgery 09/21/21 Ye Coello MD [address] [place] [address] General Surgery 10/13/21 Emilie Jauregui PA-C [address] [place] [address] Specialty Historian Research Assistant Pulmonary and Critical Care Medicine 10/13/21 Ryan May MD [address] [place] [address] Specialty Historian Research Assistant Vascular Surgery 10/13/21 Geronimo Medina, [address] [address] Rehabilitation Aide Cardiology 10/13/21 Tamika HARRELL Actuarial Science Professor 09/26/17 Meal Cook Relationship Specialty Start Date End Date Daija Morton MD [address] [place] [address] PCP - General Internal Medicine 03/21/17 Kaye Ortega MD [address] [place] [address] General Surgery 09/21/21 Ye Coello MD [address] [place], [place] [id number] General Surgery 10/13/21 Emilie Jauregui PA-C [address] [place] [address] Specialty Historian Research Assistant Pulmonary and Critical Care Medicine 10/13/21 Ryan May MD [address] [place] [address] Specialty Historian Research Assistant Vascular Surgery 10/13/21 Geronimo Medina DO [address] [address] Rehabilitation Aide Cardiology 10/13/21 Tamika Almaguer [facility] Actuarial Science Professor 09/26/17 Meal Cook Relationship Specialty Start Date End Date Daija Morton MD [address] [place] [address] PCP - General Internal Medicine 03/21/17 Kaye Ortega MD [address] [place] [address] General Surgery 09/21/21 Ye Coello MD [address] [place] [address] General Surgery 10/13/21 Emilie Jauregui PA-C [address] [place] [address] Specialty Historian Research Assistant Pulmonary and Critical Care Medicine 10/13/21 Ryan May MD [address] [place], [place] 1458295 Specialty Historian Research Assistant Vascular Surgery 10/13/21 Geronimo Medina, DO [address] [address] Rehabilitation Aide Cardiology 10/13/21 Tamika HARRELL Actuarial Science Professor 09/26/17 Meal Cook Relationship Specialty Start Date End Date Daija Morton MD [address] [place], [place] 252434 [phone] PCP - General Internal Medicine 03/21/17 Kaye Ortega MD [address] [place] [address] General Surgery 09/21/21 Ye Coello MD [address] [place] [address] General Surgery 10/13/21 Emilie Jauregui PA-C [address] [place] [address] Specialty Historian Research Assistant Pulmonary and Critical Care Medicine 10/13/21 Ryan May MD [address] [place] [address] Specialty Historian Research Assistant Vascular Surgery 10/13/21 Geronimo Medina, DO [address] [address] Rehabilitation Aide Cardiology 10/13/21 Tamika HARRELL Actuarial Science Professor 09/26/17 Meal Cook Relationship Specialty Start Date End Date Daija Morton MD [address] [place] [address] PCP - General Internal Medicine 03/21/17 Kaye Ortega MD [address] [place] [address] General Surgery 09/21/21 Ye Coello MD [address] [place] [address] General Surgery 10/13/21 Emilie Jauregui PA-C [address] [place] [address] Specialty Historian Research Assistant Pulmonary and Critical Care Medicine 10/13/21 Ryan May MD [address] [place], [place] 49[address] Specialty Historian Research Assistant Vascular Surgery 10/13/21 Geronimo Medina, [address] [address] Rehabilitation Aide Cardiology 10/13/21 Tamika Almaguer [facility] Actuarial Science Professor 09/26/17 Meal Cook Relationship Specialty Start Date End Date Daija Morton MD [address] [place] [address] PCP - General Internal Medicine 03/21/17 Kaye Ortega MD [address] [place] [address] General Surgery 09/21/21 Ye Coello MD [address] [place], [place] 137385 General Surgery 10/13/21 Emilie Jauregui PA-C [address] [place] [address] Specialty Historian Research Assistant Pulmonary and Critical Care Medicine 10/13/21 Ryan May MD [address] [place] [address] Specialty Historian Research Assistant Vascular Surgery 10/13/21 Geronimo Medina DO [address] [address] Rehabilitation Aide Cardiology 10/13/21 Tamika Almaguer [employer] Actuarial Science Professor 09/26/17 Meal Cook Relationship Specialty Start Date End Date Daija Morton MD [address] [place] [address] PCP - General Internal Medicine 03/21/17 Kaye Ortega MD [address] [place] [address] General Surgery 09/21/21 Ye Coello MD [address] [place], [place] 858295 General Surgery 10/13/21 Emilie Jauregui PA-C [address] [place], [place] 161551 Specialty Historian Research Assistant Pulmonary and Critical Care Medicine 10/13/21 Ryan May MD [address] [place] [address] Specialty Historian Research Assistant Vascular Surgery 10/13/21 Geronimo Medina DO [address] [address] Rehabilitation Aide Cardiology 10/13/21 Tamika HARRELL Actuarial Science Professor 09/26/17 Team Status: Inactive Member Role Status Dates Dr. Daija Morton MD Primary Care Provider Active Андрей RAIN Attending Provider Active Team Status: Inactive Member Role Status Dates Dr. Daija Morton MD Primary Care Provider Active Dr. Jaden Jauregui MD Emergency Provider Active Meal Cook Relationship Specialty Start Date End Date Daija Morton MD [address] [place] [address] PCP - General Internal Medicine 03/21/17 Kaye Ortega MD [address] [facility] [place] [address] General Surgery 09/21/21 Ye Coello MD [address] [place] [address] General Surgery 10/13/21 Emilie Jauregui PA-C [address] [place] [place], [place] 357771 Specialty Historian Research Assistant Pulmonary and Critical Care Medicine 10/13/21 Ryan May MD [address] [place] [address] Specialty Historian Research Assistant Vascular Surgery 10/13/21 Geronimo Medina DO [address] [address] Rehabilitation Aide Cardiology 10/13/21 Tamika Almaguer [facility] Actuarial Science Professor 09/26/17 Meal Cook Relationship Specialty Start Date End Date Daija Morton MD [address] [place] [address] PCP - General Internal Medicine 03/21/17 Kaye Ortega MD [address] [facility] [place] [address] General Surgery 09/21/21 Ye Coello MD [address] [place], [place] 93[address] General Surgery 10/13/21 Emilie Jauregui PA-C [address] [place] [place], [place] 280641 Specialty Historian Research Assistant Pulmonary and Critical Care Medicine 10/13/21 Ryan May MD [address] [place] [address] Specialty Historian Research Assistant Vascular Surgery 10/13/21 Geronimo Medina DO [address] [address] Rehabilitation Aide Cardiology 10/13/21 Tamika Ally Almaguer [employer] Actuarial Science Professor 09/26/17 Team Status: Inactive Member Role Status Dates Dr. Daija Morton MD Primary Care Provider Active Dr. Jaden Jauregui MD Attending Provider, Emergency Provider Active Team Status: Inactive Member Role Status Dates Dr. Daija Morton MD Primary Care Provider Active Dr. Huber Alvarado MD Emergency Provider Active Meal Cook Relationship Specialty Start Date End Date Daija Morton MD [address] [place], [place] 449081 PCP - General Internal Medicine 03/21/17 Kaye Ortega MD [address] [place] [address] General Surgery 09/21/21 Ye Coello MD [address] [place], [place] 342195 General Surgery 10/13/21 Emilie Jauregui PA-C [address] [place] [place], [place] 347971 Specialty Historian Research Assistant Pulmonary and Critical Care Medicine 10/13/21 Ryan May MD [address] [place] [address] Specialty Historian Research Assistant Vascular Surgery 10/13/21 Geronimo Medina DO [address] [address] Rehabilitation Aide Cardiology 10/13/21 Tamika Almaguer [facility] Actuarial Science Professor 09/26/17 Team Status: Inactive Member Role Status Dates Dr. Daija Morton MD Primary Care Provider Active Dr. Huber Alvarado MD Attending Provider, Emergency Provider Active Meal Cook Relationship Specialty Start Date End Date Daija Morton MD [address] [place], [place] 553321 PCP - General Internal Medicine 03/21/17 Kaye Ortega MD [address] [place] [address] General Surgery 09/21/21 Ye Coello MD [address] [place], [place] 531815 General Surgery 10/13/21 Emilie Jauregui PA-C [address] [place] [address] Specialty Historian Research Assistant Pulmonary and Critical Care Medicine 10/13/21 Ryan May MD [address] [place] [address] Specialty Historian Research Assistant Vascular Surgery 10/13/21 Geronimo Medina DO [address] [address] Rehabilitation Aide Cardiology 10/13/21 Tamika [facility]ANEW [facility] Actuarial Science Professor 09/26/17 Team Status: Active Member Role Status [...] MD Admit Provider, Attending Pro vider Active Meal Cook Relationship Specialty Start Date End Date Daija Morton MD [address] [place], [place] 935221 PCP - General Internal Medicine 03/21/17 Kaye Ortega MD [address] [facility] [place] [address] General Surgery 09/21/21 Ye Coello MD [address] [place], [place] 710935 General Surgery 10/13/21 Emilie Jauregui PA-C [address] [facility] [place], [place] [address] Specialty Historian Research Assistant Pulmonary and Critical Care Medicine 10/13/21 Ryan May MD [address] [place] [address] Specialty Historian Research Assistant Vascular Surgery 10/13/21 Geronimo Medina DO [address] [address] Rehabilitation Aide Cardiology 10/13/21 Tamika HARRELL Actuarial Science Professor 09/26/17 Team Status: Active Member Role Status [...] Dr. Elton Moore MD Other Provider Active Meal Cook Relationship Specialty Start Date End Date Daija Morton MD [address] [place] [address] PCP - General Internal Medicine 03/21/17 Kaye Ortega MD [address] [facility] [place] [address] General Surgery 09/21/21 Ye Coello MD [address] [place] [address] General Surgery 10/13/21 Emilie Jauregui PA-C [address] [facility] [place] [address] Specialty Historian Research Assistant Pulmonary and Critical Care Medicine 10/13/21 Ryan May MD [address] [facility] [place] [address] Specialty Historian Research Assistant Vascular Surgery 10/13/21 Geronimo Medina DO [address] [address] Rehabilitation Aide Cardiology 10/13/21 Tamika Almaguer [facility] Actuarial Science Professor 09/26/17 Meal Cook Relationship Specialty Start Date End Date Daija Morton MD [address] [place] [address] PCP - General Internal Medicine 03/21/17 Kaye Ortega MD [address] [place] [address] General Surgery 09/21/21 Ye Coello MD [address] [place] [address] General Surgery 10/13/21 Emilie Jauregui PA-C [address] [place] [address] Specialty Historian Research Assistant Pulmonary and Critical Care Medicine 10/13/21 Ryan May MD [address] [place] [address] Specialty Historian Research Assistant Vascular Surgery 10/13/21 Geronimo Medina DO [address] [place] [address] Rehabilitation Aide Cardiology 10/13/21 Tamika Meyermary Tripp [facility] Actuarial Science Professor 09/26/17 Meal Cook Relationship Specialty Start Date End Date Daija Morton MD [address] [place], [place] 785991 PCP - General Internal Medicine 03/21/17 Kaye Ortega MD [address] [place] [address] General Surgery 09/21/21 Ye Coello MD [address] [place] [address] General Surgery 10/13/21 Emilie Jauregui, PA-C [address] [place], [place] 029911 Specialty Historian Research Assistant Pulmonary and Critical Care Medicine 10/13/21 Ryan May MD [address] [place] [address] Specialty Historian Research Assistant Vascular Surgery 10/13/21 Geornimo Medina DO [address] [place] [address] Rehabilitation Aide Cardiology 10/13/21 Tamika Minick [employer]pp [employer] Actuarial Science Professor 09/26/17 Team Status: Inactive Member Role Status [...] Provi ashley, Attending Provider, Referring Provider Active Meal Cook Relationship Specialty Start Date End Date Daija Morton MD [address] [place], [place] 685471 PCP - General Internal Medicine 03/21/17 Kaye Ortega MD [address] [place] [address] General Surgery 09/21/21 Ye Coello MD [address] [place], [place] 6878[address] General Surgery 10/13/21 Emilie Jauregui PANeshaC [address] [place], [place] 315021 Specialty Historian Research Assistant Pulmonary and Critical Care Medicine 10/13/21 Ryan May MD [address] [place] [address] Specialty Historian Research Assistant Vascular Surgery 10/13/21 Geronimo Medina DO [address] [place] [address] Rehabilitation Aide Cardiology 10/13/21 Tamika Minick [employer]pp [employer] Actuarial Science Professor 09/26/17 Team Status: Active Member Role Status [...] Dr. Ryan Guerin DO Attending Provider Active Meal Cook Relationship Specialty Start Date End Date Daija Morton MD [address] [place], [place] 343191 PCP - General Internal Medicine 03/21/17 Kaye Ortega MD [address] [place] [address] General Surgery 09/21/21 Ye Coello MD [address] [place], [place] [address] General Surgery 10/13/21 Emilie Jauregui PA-C [address] [facility] [place], [place] [address] Specialty Historian Research Assistant Pulmonary and Critical Care Medicine 10/13/21 Ryan May MD [address] [place] [address] Specialty Historian Research Assistant Vascular Surgery 10/13/21 Geronimo Medina DO [address] [place] [address] Rehabilitation Aide Cardiology 10/13/21 Tamika Canales Tripp [facility] Actuarial Science Professor 09/26/17 Meal Cook Relationship Specialty Start Date End Date Daija Morton MD [address] [place], [place] 917331 PCP - General Internal Medicine 03/21/17 Kaye Ortega MD [address] [place] [address] General Surgery 09/21/21 Ye Coello MD [address] [place] [address] General Surgery 10/13/21 Emilie Jauregui PA-C [address] [place] [address] Specialty Historian Research Assistant Pulmonary and Critical Care Medicine 10/13/21 Ryan May MD [address] [place] [address] Specialty Historian Research Assistant Vascular Surgery 10/13/21 Geronimo Medina DO [address] [place] [address] Rehabilitation Aide Cardiology 10/13/21 Tamika HARRELL Actuarial Science Professor 09/26/17 Meal Cook Relationship Specialty Start Date End Date Daija Morton MD [address] [place] [address] PCP - General Internal Medicine 03/21/17 Kaye Ortega MD [address] [place] [address] General Surgery 09/21/21 Ye Coello MD [address] [place] [address] General Surgery 10/13/21 Emilie Jauregui PA-C [address] [place] [address] Specialty Historian Research Assistant Pulmonary and Critical Care Medicine 10/13/21 Ryan May MD [address] [place] [address] Specialty Historian Research Assistant Vascular Surgery 10/13/21 Geronimo Medina DO [address] [place] [address] Rehabilitation Aide Cardiology 10/13/21 Tamika HARRELL Actuarial Science Professor 09/26/17 Meal Cook Relationship Specialty Start Date End Date Daija Morton MD [address] [place] [address] PCP - General Internal Medicine 03/21/17 Kaye Ortega MD [address] [place] [address] General Surgery 09/21/21 Ye Coello MD [address] [place] [address] General Surgery 10/13/21 Emilie Jauregui PA-C [address] [place] [address] Specialty Historian Research Assistant Pulmonary and Critical Care Medicine 10/13/21 Ryan May MD [address] [place] [address] Specialty Historian Research Assistant Vascular Surgery 10/13/21 Geronimo Medina DO [address] [place] [address] Rehabilitation Aide Cardiology 10/13/21 Tamika Almaguer [facility] Actuarial Science Professor 09/26/17 Meal Cook Relationship Specialty Start Date End Date Daija Morton MD [address] [place] [address] PCP - General Internal Medicine 03/21/17 Kaye Ortega MD [address] [place] [address] General Surgery 09/21/21 Ye Coello MD [address] [place] [address] General Surgery 10/13/21 Emilie Jauregui PA-C [address] [place] [address] Specialty Historian Research Assistant Pulmonary and Critical Care Medicine 10/13/21 Ryan May MD [address] [place] [address] Specialty Historian Research Assistant Vascular Surgery 10/13/21 Geronimo Medina DO [address] [place] [address] Rehabilitation Aide Cardiology 10/13/21 Tamika Almaguer [facility] Actuarial Science Professor 09/26/17 Meal Cook Relationship Specialty Start Date End Date Daija Morton MD [address] [place] [address] PCP - General Internal Medicine 03/21/17 Kaye Ortega MD [address] [facility] [place] [address] General Surgery 09/21/21 Ye Coello MD [address] [place] [address] General Surgery 10/13/21 Emilie Jauregui PA-C [address] [facility] [place] [address] Specialty Historian Research Assistant Pulmonary and Critical Care Medicine 10/13/21 Ryan May MD [address] [place] [address] Specialty Historian Research Assistant Vascular Surgery 10/13/21 Geronimo Medina DO [address] [place] [address] Rehabilitation Aide Cardiology 10/13/21 Tamika HARRELL Actuarial Science Professor 09/26/17 Meal Cook Relationship Specialty Start Date End Date Daija Morton MD [address] [place] [address] PCP - General Internal Medicine 03/21/17 Kaye Ortega MD [address] [place] [address] General Surgery 09/21/21 Ye Coello MD [address] [place], [place] 679845 General Surgery 10/13/21 Emilie Jauregui PANeshaC [address] [place] [address] Specialty Historian Research Assistant Pulmonary and Critical Care Medicine 10/13/21 Ryan May MD [address] [place] [address] Specialty Historian Research Assistant Vascular Surgery 10/13/21 Geronimo Medina DO [address] [place] [address] Rehabilitation Aide Cardiology 10/13/21 Tamika HARRELL Actuarial Science Professor 09/26/17 Meal Cook Relationship Specialty Start Date End Date Daija Morton MD [address] [place] [address] PCP - General Internal Medicine 03/21/17 Kaye Ortega MD [address] [place] [address] General Surgery 09/21/21 Ye Coello MD [address] [place] [address] General Surgery 10/13/21 Emilie Jauregui PA-C [address] [place] [address] Specialty Historian Research Assistant Pulmonary and Critical Care Medicine 10/13/21 Ryan May MD [address] [facility] [place] [address] Specialty Historian Research Assistant Vascular Surgery 10/13/21 Geronimo Medina DO [address] [place] [address] Rehabilitation Aide Cardiology 10/13/21 Tamika Almaguer [facility] Actuarial Science Professor 09/26/17 Meal Cook Relationship Specialty Start Date End Date Daija Morton MD [address] [place], [place] 199673 [phone] PCP - General Internal Medicine 03/21/17 Kaye Ortega MD [address] [facility] [place] [address] General Surgery 09/21/21 Ye Coello MD [address] [place] [address] General Surgery 10/13/21 Emilie Jauregui PA-C [address] [facility] [place] [address] Specialty Historian Research Assistant Pulmonary and Critical Care Medicine 10/13/21 Ryan May MD [address] [place] [address] Specialty Historian Research Assistant Vascular Surgery 10/13/21 Geronimo Medina DO [address] [place] [address] Rehabilitation Aide Cardiology 10/13/21 Tamika HARRELL Actuarial Science Professor 09/26/17 Meal Cook Relationship Specialty Start Date End Date Daija Morton MD [address] [place] [address] PCP - General Internal Medicine 03/21/17 Beatriz Correa CNP [address] [place] [address] Referring 09/28/20 10/12/21 Daija Morton MD [address] [place], [place] 768081 Home Care Provider Internal Medicine 09/28/20 10/12/21 Fco Franklin, [place] [address] [place] [address] Electrotherapist 10/08/20 12/21/20 Tamika HARRELL Actuarial Science Professor 09/26/17 Meal Cook Relationship Specialty Start Date End Date Daija Morton MD [address] [place] [address] PCP - General Internal Medicine 03/21/17 Kaye Ortega MD [address] [place] [phone] General Surgery 09/21/21 Ye Coello MD [address] [place], [place] 0912[address] General Surgery 10/13/21 Emilie Jauregui PA-C [address] [facility] [place] [address] Specialty Historian Research Assistant Pulmonary and Critical Care Medicine 10/13/21 Ryan May MD [address] [facility] [place] [place] [address] Specialty Historian Research Assistant Vascular Surgery 10/13/21 Geronimo Medina DO [address] [place] [address] Rehabilitation Aide Cardiology 10/13/21 Tamika Almaguer [facility] Actuarial Science Professor 09/26/17 Meal Cook Relationship Specialty Start Date End Date Daija Morton MD [address] [place], [place] 916421 PCP - General Internal Medicine 03/21/17 Kaye Ortega MD [address] [facility] [place] [place] [address] General Surgery 09/21/21 Ye Coello MD [address] [place] [address] General Surgery 10/13/21 Emilie Jauregui PA-C [address] [facility] [place] [address] [phone] Specialty Historian Research Assistant Pulmonary and Critical Care Medicine 10/13/21 Ryan May MD [address] [place] [address] Specialty Historian Research Assistant Vascular Surgery 10/13/21 Geronimo Medina DO [address] [place] [address] Rehabilitation Aide Cardiology 10/13/21 Tamika HARRELL Actuarial Science Professor 09/26/17 Meal Cook Relationship Specialty Start Date End Date Daija Morton MD [address] [place], [place] 137531 PCP - General Internal Medicine 03/21/17 Kaye Ortega MD [address] [place] [address] General Surgery 09/21/21 Ye Coello MD [address] [place], [place] 603355 General Surgery 10/13/21 Emilie Jauregui PA-C [address] [place], [place] 120291 Specialty Historian Research Assistant Pulmonary and Critical Care Medicine 10/13/21 Ryan May MD [address] [place] [address] Specialty Historian Research Assistant Vascular Surgery 10/13/21 Geronimo Medina DO [address] [place] [address] Rehabilitation Aide Cardiology 10/13/21 Tamika HARRELL Actuarial Science Professor 09/26/17 Meal Cook Relationship Specialty Start Date End Date Daija Morton MD [address] [place], [place] 247001 PCP - General Internal Medicine 03/21/17 Kaye Ortega MD [address] [place] [address] General Surgery 09/21/21 Ye Coello MD [address] [place], [place] 846765 General Surgery 10/13/21 Emilie Jauregui PA-C [address] [place], [place] 342911 Specialty Historian Research Assistant Pulmonary and Critical Care Medicine 10/13/21 Ryan May MD [address] [place] [address] Specialty Historian Research Assistant Vascular Surgery 10/13/21 Geronimo Medina DO [address] [place] [address] Rehabilitation Aide Cardiology 10/13/21 Tamika Canales [facility] Actuarial Science Professor 09/26/17 Team Status: Active Member Role Status [...] November 05, 2024 End: November 05, 2024 Meal Cook Relationship Specialty Start Date End Date Daija Morton MD [address] [place], [place] [id number] PCP - General Internal Medicine 03/21/17 Kaye Ortega MD [address] [place] [address] General Surgery 09/21/21 Ye Coello MD [address] [place], [place] [address] General Surgery 10/13/21 Emilie Jauregui PA-C [address] [place], [place] [address] Specialty Historian Research Assistant Pulmonary and Critical Care Medicine 10/13/21 Ryan May MD [address] [place] [address] Specialty Historian Research Assistant Vascular Surgery 10/13/21 Geronimo Medina DO [address] [place] [address] Rehabilitation Aide Cardiology 10/13/21 Anjel Braga APRN.LEGAL SERVICES MANAGER [address] [place], [place] [address] Php Web Developer Internal Medicine 05/26/24 Tamika HARRELL Actuarial Science Professor 09/26/17 Meal Cook Relationship Specialty Start Date End Date Daija Morton MD [address] [place] [address] PCP - General Internal Medicine 03/21/17 Kaye Ortega MD [address] [place] [id number] General Surgery 09/21/21 Ye Coello MD [address] [place], [place] [address] General Surgery 10/13/21 Emilie Jauregui PA-C [address] [place], [place] [address] Specialty Historian Research Assistant Pulmonary and Critical Care Medicine 10/13/21 Ryan May MD [address] [place] [address] Specialty Historian Research Assistant Vascular Surgery 10/13/21 Geronimo Medina DO [address] [place] [address] Rehabilitation Aide Cardiology 10/13/21 Anjel Braga APRN.LEGAL SERVICES MANAGER [address] [place] [address] Php Web Developer Internal Medicine 05/26/24 Tamika Almaguer [facility] Actuarial Science Professor 09/26/17 Meal Cook Relationship Specialty Start Date End Date Daija Morton MD [address] [place] [address] PCP - General Internal Medicine 03/21/17 Kaye Ortega MD [address] [address] General Surgery 09/21/21 Ye Coello MD [address] [place], [place] [address] General Surgery 10/13/21 Emilie Jauregui PA-C [address] [place], [place] [address] Specialty Historian Research Assistant Pulmonary and Critical Care Medicine 10/13/21 Ryan May MD [address] [facility] [place] [place] [address] Specialty Historian Research Assistant Vascular Surgery 10/13/21 Geronimo Medina DO [address] [place] [address] Rehabilitation Aide Cardiology 10/13/21 Anjel Braga APRN.[facility] [address] [place] [address] Php Web Developer Internal Medicine 05/26/24 Tamika Almaguer [facility] Actuarial Science Professor 09/26/17 Meal Cook Relationship Specialty Start Date End Date Daija Morton MD [address] [place] [address] PCP - General Internal Medicine 03/21/17 Kaye Ortega MD [address] [place] [id number] General Surgery 09/21/21 Ye Coello MD [address] [place], [place] [address] General Surgery 10/13/21 Emilie Jauregui PA-C [address] [place], [place] [id number] Specialty Historian Research Assistant Pulmonary and Critical Care Medicine 10/13/21 Ryan May MD [address] [place], [place] [address] Specialty Historian Research Assistant Vascular Surgery 10/13/21 Geronimo Medina DO [address] [place] [address] Rehabilitation Aide Cardiology 10/13/21 Anjel Braga APRN.LEGAL SERVICES MANAGER [address] [place], [place] [id number] Php Web Developer Internal Medicine 05/26/24 Tamikadestiny Almaguer [facility] Actuarial Science Professor 09/26/17 Meal Cook Relationship Specialty Start Date End Date Daija Morton MD [address] [place], [place] [id number] PCP - General Internal Medicine 03/21/17 Kaye Ortega MD [address] [place] [phone] General Surgery 09/21/21 Ye Coello MD [address] [place], [place] [id number] General Surgery 10/13/21 Emilie Jauregui PA-C [address] [place], [place] [id number] Specialty Historian Research Assistant Pulmonary and Critical Care Medicine 10/13/21 Ryan May MD [address] [place] [address] Specialty Historian Research Assistant Vascular Surgery 10/13/21 Geronimo Medina DO [address] [place] [address] Rehabilitation Aide Cardiology 10/13/21 Anjel Braga APRN.LEGAL SERVICES MANAGER [address] [place] [address] Php Web Developer Internal Medicine 05/26/24 Tamika Almaguer [facility] Actuarial Science Professor 09/26/17 Meal Cook Relationship Specialty Start Date End Date Daija Morton MD [address] [place] [address] PCP - General Internal Medicine 03/21/17 Kaye Ortega MD [address] [place] [address] General Surgery 09/21/21 Ye Coello MD [address] [place], [place] [address] General Surgery 10/13/21 Emilie Jauregui PA-C [address] [place], [place] [address] Specialty Historian Research Assistant Pulmonary and Critical Care Medicine 10/13/21 Ryan May MD [address] [place] [address] Specialty Historian Research Assistant Vascular Surgery 10/13/21 Geronimo Medina DO [address] [place] [address] Rehabilitation Aide Cardiology 10/13/21 Anjel Braga APRN.LEGAL SERVICES MANAGER [address] [place] [address] Php Web Developer Internal Medicine 05/26/24 Tamika Q[facility]ANEW [facility] Actuarial Science Professor 09/26/17 Team Status: Active Member Role/Relationship Status [...] Provider Active Start : December 16, 2024 Meal Cook Relationship Specialty Start Date End Date Daija Morton MD [address] [place], [place] [address] PCP - General Internal Medicine 03/21/17 Kaye Ortega MD [address] [place] [phone] General Surgery 09/21/21 Ye Coello MD [address] [place], [place] [address] General Surgery 10/13/21 Emilie Jauregui PA-C [address] [place], [place] [address] Specialty Historian Research Assistant Pulmonary and Critical Care Medicine 10/13/21 Ryan May MD [address] [facility] [place] [address] Specialty Historian Research Assistant Vascular Surgery 10/13/21 Geronimo Medina DO [address] [place] [address] Rehabilitation Aide Cardiology 10/13/21 Anjel Braga APRN.LEGAL SERVICES MANAGER [address] [place], [place] [address] Php Web Developer Internal Medicine 05/26/24 Tamika Almaguer [facility] Actuarial Science Professor 09/26/17 Meal Cook Relationship Specialty Start Date End Date Daija Morton MD [address] [place] [address] PCP - General Internal Medicine 03/21/17 Kaye Ortega MD [address] [address] General Surgery 09/21/21 Ye Coello MD [address] [place] [address] General Surgery 10/13/21 Emilie Jauregui PA-C [address] [place] [address] Specialty Historian Research Assistant Pulmonary and Critical Care Medicine 10/13/21 Ryan May MD [address] [place] [address] Specialty Historian Research Assistant Vascular Surgery 10/13/21 Geronimo Medina DO [address] [place] [address] Rehabilitation Aide Cardiology 10/13/21 Anjel Braga APRN.LEGAL SERVICES MANAGER [address] [place], [place] [address] Php Web Developer Internal Medicine 05/26/24 [facility] Actuarial Science Professor 09/26/17 Team Status: Active Member Role/Relationship Status Dates Dr. Daija Morton MD Primary Care Provider Active Start: December 17, 2024 Dr. Seth Pritchard DO Emergency Provider Active Start: December 17, 2024 Dr. Roman Patel DO Admit Provider Active Start: December 17, 2024 Dr. Roman Patel DO Attending Provider Active Start: December 17, 2024 Meal Cook Relationship Specialty Start Date End Date Daija Morton MD [address] [place] [address] PCP - General Internal Medicine 03/21/17 Kaye Ortega MD [address] [place] [address] General Surgery 09/21/21 Ye Coello MD [address] [place] [address] General Surgery 10/13/21 Emilie Jauregui PA-C [address] [place], [place] [address] Specialty Historian Research Assistant Pulmonary and Critical Care Medicine 10/13/21 Ryan May MD [address] [place] [address] Specialty Historian Research Assistant Vascular Surgery 10/13/21 Geronimo Medina DO [address] [place] [address] Rehabilitation Aide Cardiology 10/13/21 Anjel Braga APRN.LEGAL SERVICES MANAGER [address] [place], [place] [address] Php Web Developer Internal Medicine 05/26/24 Tamika Canales [facility] Actuarial Science Professor 09/26/17 Team Status: Inactive Member Role/Relationship Status [...] Active Start : August 28, 2024 Dr. Cleia Toribio MD Attending Provider Active Start: August [...] S tart: December 16, 2024 Dr. Shilpa Conrteras MD Admit Provider Active St art: December 16, 2024 Dr. Shilpa Contreras MD Other Provider Active St art: December 16, 2024 Dr. Lisha Talamantes , Attending Provider Active S tart: December 16, [...] Provider Active Start: December 18, 2024 Addi rAt MD Other Provider Active Start: December 18, [...] J chance 2024 End: December 26, 2024 Jo Hughes [...] Provider Active Start: December 20, 2024 Ricardo cMcullough MD Other Provider Active Start: 2024 Dr. [...] YANG MD Other Provider Active Start: J chacne 2024 Jo Hughes MD Other Provider Active [...] Other Provider Active Start: 2024 Dr. Aung Prees MD Other Provider Active Start: December 23, [...] JOSETTE YANG MD Other Provider Active Start: chance2024 Angelo Wiley MD Other Provider Active [...] Provider Active Start : December 26, 2024 Meal Cook Relationship Specialty Start Date End Date Daija Morton MD [address] [place], [place] [address] PCP - General Internal Medicine 03/21/17 Kaye Ortega MD [address] [facility] [place] [address] General Surgery 09/21/21 Ye Coello MD [address] [place], [place] [address] General Surgery 10/13/21 Emilie Jauregui PA-C [address] [facility] [place] [id number] Specialty Historian Research Assistant Pulmonary and Critical Care Medicine 10/13/21 Ryan May MD [address] [place] [address] Specialty Historian Research Assistant Vascular Surgery 10/13/21 Geronimo Medina DO [address] [place] [address] Rehabilitation Aide Cardiology 10/13/21 Anjel Braga APRN.LEGAL SERVICES MANAGER [address] [place] [address] Php Web Developer Internal Medicine 05/26/24 Tamika Almaguer [facility] Actuarial Science Professor 09/26/17 Team Status: Active Member Role/Relationship Status [...] Provider Active Start: December 17, 2024 Dr. Romna Patel , DO Admit Provider Active Start: December 17, [...] St art: December 22, 2024 Dr. Daylin cShmitt MD Other Provider Active Start : December [...] December 23, 2024 Dr. Paulino Henderson , DO Attending Provider Active Start: December 23, [...] JOSETTE YANG MD Other Provider Active Start: y 2024 Angelo Wiley MD Other Provider Active [...] Provider Active S tart: January 08, 2025 Meal Cook Relationship Specialty Start Date End Date Daija Morton MD [address] [place], [place] [address] PCP - General Internal Medicine 03/21/17 Kaye Ortega MD [address] [place] [address] General Surgery 09/21/21 Ye Coello MD [address] [place] [address] General Surgery 10/13/21 Emilie Jauregui, PA-C [address] [place] [address] Specialty Historian Research Assistant Pulmonary and Critical Care Medicine 10/13/21 Ryan May MD [address] [place] [address] Specialty Historian Research Assistant Vascular Surgery 10/13/21 Geronimo Medina DO [address] [place] [address] Rehabilitation Aide Cardiology 10/13/21 Anjel Braga APRN.LEGAL SERVICES MANAGER [address] [facility] [place] [address] Php Web Developer Internal Medicine 05/26/24 Tamika HARRELL Actuarial Science Professor 09/26/17 Team Status: Active Member Role/Relationship Status [...] Active Start: December 23, 2024 Dr. Seth Pirtchard DO Emergency Provider Active Start: December 23, 2024 Dr. Roman Patel DO Admit Provider Active Start: December 23, 2024 Dr. Roamn Patel DO Other Provider Active Start: December [...] Luan Mcgraw MS Other Provider Active Start: chance2024 Jo Hughes MD Other Provider Active Start: December 24, 2024 JOSETTE YANG MD Other Provider Active Start: 2024 Angelo Wiley MD Other Provider Active Start: December 24, 2024 Neelam Almendarez MD Other Provider Active Start: December 24, 2024 Dr. Shilpa Cotnreras MD Referring Provider Active Start: December 24, [...] End: January 09, 2025 Josefa Doss NP STAGE BUILDER-C Attending Provider Active Start: January 09, 2025 [...] End: January 09, 2025 Josefa Doss NP STAGE BUILDER-C Attending Provider Active Start: January 09, 2025 [...] January 23, 2025 End: January 23, 2025 JESUS CastleC Attending Provider Active S tart: January 23, [...] 2024 End: December 27, 2024 Josefa Doss NP, STAGE BUILDER-C Attending Provider Active Start: December 27, 2024 [...] 2024 End: December 31, 2024 Dr. Lorraine Mnea MD Attending Provider Active Start: December 31, [...] End: January 09, 2025 Josefa Doss NP STAGE BUILDER-C Attending Provider Active Start: January 09, 2025 [...] 23, 2025 End: January 23, 2025 Hannah Bordner , STAGE BUILDER-C Attending Provider Active S tart: January 23, [...] Start: December 17, 2024 Dr. Seth Pritchard , Emergency Provider Active Start: December 17, 2024 Dr. Roman Patel DO Admit Provider Active Start: December 17, 2024 Dr. Roman Patel , Attending Provider Active Start: December 17, 2024 [...] Active Start: December 20, 2024 Dr. Roman Mosteller , DO Other Provider Active Start: December [...] Other Provider Active Start: Landry fletcher 2024 JOSETTE YANG MD Other Provider Active Start: Landry fletcher 2024 Jo Hughes MD Other Provider Active [...] tart: December 21, 2024 Dr. Lisha Talamantes , Other Provider Active Start : December 21, 2024 Chrystal Collier MD Other Provider Active Start : December 21, 2024 Luan Mcgraw MS Other Provider Active Start: 2024 Jo Hughes MD Other Provider Active Start: December 21, 2024 JOSETTE YANG MD Other Provider Active Start: J chance2024 Angelo Wiley MD Other Provider Active Start: December 21, 2024 Neelam Alemndarez MD Other Provider Active Start: December 21, [...] Start : December 22, 2024 Dr. Hans Roasles MD Other Provider Active St art: December [...] 2024 End: December 27, 2024 Josefa Doss STAGE BUILDER, STAGE BUILDER-C Attending Provider Active Start: December 27, 2024 [...] End: February 04, 2025 Josefa Doss NP, STAGE BUILDER-C Attending Provider Active Start: February 04, 2025 [...] BE BASED ON THE PRIMARY CLINICAL RECORDS. [email or web address] provides no warranty or guarantee of the accuracy or completeness of information in this document.
[2025-05-12 21:37] LABS: Troponin T High Sens 4 HR 27 ng/L (<=22)
[2025-05-12] MEDS: Vancomycin HCl 1,500 MG in 0.9% Normal Saline (500mL Bag) 500 ML 250 MG IV (21:38)
[2025-05-12] MEDS: APIXABAN 2.5 MG TABLET (WCH) GT (22:25)
[2025-05-12] MEDS: carBAMazepine 200 MG/10 ML UDC (WCH) GT (22:26)
[2025-05-12] MEDS: Divalproex Sodium 125 MG Tablet GT (22:26)
[2025-05-12] MEDS: Acetaminophen 650 MG/20 ML UDC GT (22:51)
[2025-05-13] VITALS (21 sets, daily range): BP systolic 117–143; BP diastolic 49–72; PULSE 65–94; RESP 14–20; TEMP 36.7–37.2; O2SAT 84–97; BMI 17.4
[2025-05-13] MEDS: 0.9% Normal Saline (1000mL) 1,000 ML 100 ML IV (04:38)
[2025-05-13] MEDS: Piperacil/Tazobactam 3.375 GM in 0.9% Normal Saline (50mL MB+) 50 ML IV ×3 (05:13→22:57)
[2025-05-13 06:54] LABS: Hematocrit 25.0 % (40-54); Hemoglobin 7.7 g/dL (13.0-16.5); Immature Granulocytes Count 0.220 X10^3/uL (0.0-0.0); Mean Corp Hgb Conc 30.8 g/dL (32-36); Mean Corpuscular Volume 82.2 fL (80-94); Mean Platelet Vol. 9.8 fl (6.2-12.0); NRBC Flagged by Analyzer 0 % (0-5); POSITIVE DIFFERENTIAL YES; Platelet Count 369 K/mm3 (150-450); RBC Distribution Width CV 17.3 % (11.6-14.6); RBC Distribution Width SD 51.9 fl (35.1-43.9); Red Blood Count 3.04 M/mm3 (4.6-6.2); White Blood Count 10.6 K/mm3 (4.4-11.0)
[2025-05-13 07:36] LABS: AST(SGOT) 32 U/L (<=37); Alanine Aminotransfer ALT/SGPT 51 U/L (<=46); Albumin, Serum 2.3 g/dL (3.4-4.8); Alkaline Phosphatase 57 U/L (40-129); Anion Gap 14 (5-15); BUN 26 mg/dL (4-19); BUN/Creat Ratio 34.2 RATIO (10-20); Calcium,Total 6.6 mg/dL (7.6-11.0); Carbon Dioxide 19.3 mmol/L (21.0-32.0); Chloride 112 mmol/L (98-108); Estimated Creatinine Clearance 65.79 ml/min (50-250); Globulin 2.6 g/dL (2.2-4.2); Glucose 95 mg/dL (70-99); Potassium 3.6 mmol/L (3.3-5.1)
[2025-05-13] MEDS: Vancomycin HCl 1,000 MG in 0.9% Normal Saline (250mL Bag) 250 ML 250 MG IV ×2 (10:03→20:44)
[2025-05-13] MEDS: Divalproex Sodium 125 MG Tablet GT ×2 (10:06→22:15)
[2025-05-13] MEDS: Thiamine Hydrochloride 100 MG Tablet GT (10:07)
[2025-05-13] MEDS: APIXABAN 2.5 MG TABLET (WCH) GT ×2 (10:07→22:15)
[2025-05-13] MEDS: carBAMazepine 200 MG/10 ML UDC (WCH) GT ×4 (10:07→22:15)
--- NOTE | 2025-05-13 11:18 | CPS ---
Vest therapy started 8 hertz, 6 minutes. pt. cannot tolerate any loner or stronger
--- NOTE | 2025-05-13 14:19 | PN_ITS ---
Subjective Subjective Patient seen and examined with his nurse by his bedside. He was lying comfortably in bed. He just answered "yes" to all questions and would not really say anything else. Unable to do comprehensive review of systems. He has remained hemodynamically stable. Hb is down to 7.7, from 9.9 yesterday. Objective Data Objective Data Vital Signs: Vital Signs Temp Pulse Resp BP Pulse Ox O2 Del Method O2 Flow Rate 98.9 F 65 18 138/61 H 91 Room Air 3 05/13/25 10:31 05/13/25 11:01 05/13/25 11:01 05/13/25 10:31 05/13/25 10:31 05/13/25 10:31 05/13/25 06:53 Oxygen Flow Rate (L/min) 3 Oxygen Delivery Method Room Air Weight: 128 lb 8.472 oz Body Mass Index (BMI) 17.4 Intake & Output: Intake and Output for Last 24 Hours 05/11/25 05/12/25 05/13/25 23:59 23:59 23:59 Intake Total 200 / 200 1950 / 1950 Output Total 850 / 850 Balance 200 / -200 1100 / 1100 Medical Nutrition Assessment Dietitian: Malnutrition Criteria Met Start: 05/13/25 13:28 Freq: Status: Active Protocol: Document 05/13/25 13:28 JESS (Rec: 05/13/25 13:28 [id number]) Nutrition Malnutrition Evidence of Yes Malnutrition Exists Malnutrition (severe Chronic ): Evidenced By Weight Loss (Severe),Physical Changes (Severe) Clinical Problem Chronic Disease or Condition Related Malnutrition Etiology severe related to inadequate energy intake, increased energy expenditure and swallowing difficulty Signs/Symptoms as evidence by 6.6kg (10%) weight loss in 4 months and severe fat/muscle loss to orbital, temporal, and clavicle regions; BMI 17.4kg/m2 Status Active Problem Recommendation Dietitian Will continue home regimen for enteral nutrition Recommendations/ support as ordered. Changes Pt is NPO/dysphagia and enteral nutrition support to meet 100% of estimated nutrition needs. Continue Pivot 1.5 via PEG tube: 300mL bolus 5x daily with 100mL water flush before and after each bolus to provid 2250kcal, 140.7 grams protein, and 2125mL fluid Trend weight; enteral nutrition as ordered promotes weight gain. Lab / Micro Data 05/13/25 06:37 05/13/25 06:37 Labs: Laboratory Results - last 24 hr 05/12/25 16:25: WBC 15.4 H, RBC 3.96 L, Hgb 9.9 L, Hct 32.9 L, MCV 83.1, MCH 25.0 L, MCHC 30.1 L, RDW Std Deviation 52.5 H, RDW Coeff of Aly 17.2 H, Plt Count 506 H, MPV 10.4, Immature Gran % (Auto) 1.900 H, Neut % (Auto) 89.5 H, L ymph % (Auto) 5.3 L, [place] % (Auto) 2.9, Eos % (Auto) 0.1, Baso % (Auto) 0.3, A bsolute Neuts (auto) 13.8 H, Absolute Lymphs (auto) 0.82 L, Nucleated RBC % 0.2, PT 14.1, INR 1.1, APTT 34.9, Sodium 140, Potassium 4.4, Chloride 100, Carbon Dioxide 26.4, Anion Gap 14, BUN 38 H, Creatinine 0.97, Estim Creat Clear Calc 57.33, Est GFR (MDRD) Non-Af 81, BUN/Creatinine Ratio 39.5 H, Glucose 136 H, Lactic Acid 1.8, Calcium 9.9, Total Bilirubin < 0.15, AST 55 H, ALT 86 H, Alkaline Phosphatase 106, Troponin T High Sens 27 H D, Total Protein 7.0, Albumin 3.4, Globulin 3.7, Albumin/Globulin Ratio 0.9 05/12/25 16:35: Urine Color Yellow, Urine Clarity Cloudy, Urine pH 6.5, Ur Specific [place] 1.010, Urine Protein 30 H, Urine Glucose (UA) Normal, Urine Ketones Negative, Urine Occult Blood 25 H, Urine Nitrite Positive H, Urine Bilirubin Negative, Urine Urobilinogen Normal, Ur Leukocyte Esterase 25 H, Urine RBC 5-10 SEEN, Urine WBC 5-10 SEEN, Ur Squamous Epith Cells 5-10 SEEN, Urine Bacteria 4+, Urine Mucus 0 SEEN 05/12/25 18:26: Troponin T Hi Sens 2 Hr 27 H 05/12/25 20:55: Troponin T Hi Sens 4Hr 27 H 05/13/25 06:37: WBC 10.6, RBC 3.04 L, Hgb 7.7 L, Hct 25.0 L, MCV 82.2, MCH 25.3 L, MCHC 30.8 L, RDW Std Deviation 51.9 H, RDW Coeff of Aly 17.3 H, Plt Count 369, MPV 9.8, Immature Gran % (Auto) 2.100 H, Neut % (Auto) 90.8 H, Lymph % (Auto) 5.6 L, [place] % (Auto) 1.4, Eos % (Auto) 0.0, Baso % (Auto) 0.1, Absolute Neuts (auto) 9.7 H, Absolute Lymphs (auto) 0.60 L, Nucleated RBC % 0, Sodium 145, Potassium 3.6, Chloride 112 H, Carbon Dioxide 19.3 L, Anion Gap 14, BUN 26 H, Creatinine 0.77, Estim Creat Clear Calc 65.79, Est GFR (MDRD) Non-Af 93, B UN/Creatinine Ratio 34.2 H, Glucose 95, Calcium 6.6 L, Total Bilirubin < 0.15, AST 32, ALT 51 H, Alkaline Phosphatase 57, Total Protein 4.9 L, Albumin 2.3 L, Globulin 2.6, Albumin/Globulin Ratio 0.9 Micro: Microbiology 05/12/25 16:35 Urine Catheter - Pizano Urine Culture - 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 05/12/25 20:03 Mucosa - Nasopharyngeal Respiratory Panel (PCR) - Final 05/12/25 16:55 Urine, Clean Catch Legionella Antigen - Final 05/12/25 16:55 Urine, Clean Catch Streptococcus pneumoniae Antigen (M - Final 05/12/25 16:35 Mucosa - Nose SARS-CoV-2, Influenza & RSV (PCR) - Final ABG Data ABG results: ABG 05/12/25 16:46 Specimen Type ART Sample Site L Radial pH 7.48 H Bicarbonate Actual 28.7 H Total CO2 30 Base Excess 5 H O2 Saturation 90 L O2 % 4.0 ABG pCO2 38.9 ABG pO2 55 L Dann Test Positive O2 Delivery Device Cannula Vent Mode Not entered Radiography Diagnostic Testing: Radiology Impression Chest X-Ray 05/12/25 17:04 IMPRESSION: Patchy/streaky right basilar airspace opacities, possibly pneumonia. Reading Location: [id number] Physical Exam Const alert Orientation / Consciousness: confused HEENT normocephalic and head/scalp atraumatic HEENT Narrative: dry oral mucosal membranes Eyes EOMs intact bilaterally Neck supple and no JVD Lymph Lymphatic: no lymphedema noted Resp Resp Narrative: mildly diminished breath sounds bibasally, no wheezes or crackles. On room air. Cardio regular rate, regular rhythm, S1 normal heart sound, S2 normal heart sound and no murmurs GI normal to inspection, nondistended, normoactive bowel sounds, soft to palpation and non-tender GI Narrative: PEG tube in situ Extremity normal capillary refill, no clubbing, cyanosis or edema and no calf tenderness General Extremity: no tenderness to palpation of joints or extremities Skin General Skin Exam: no breakdown Neuro no focal motor deficits Neuro Narrative: confused, moves all extremities spontaneously Motor Exam: general weakness Psych Psych Narrative: confused Assessment & Plan Assessment/Plan (1) Pneumonia: (2) Acute on chronic hypoxic respiratory failure: PLAN: Plan #Acute on chronic hypoxic respiratory failure due to right basilar pneumonia with concern for aspiration * Was recently admitted in the hospital and discharged chest on 05/08/2025. Was admitted previously and managed for acute on chronic hypoxia due to COPD exacerbation. He now comes back with hypoxia, saturating at 82 to 85% on 2 L of oxygen in the [facility]. * Chest x-ray showed right basilar infiltrate. He is being managed for acute on chronic hypoxic respiratory failure concerning for possible aspiration pneumonia * Currently on IV vancomycin and Zosyn. Respiratory panel was negative. * Breathing treatments bronchodilators. Titrate oxygen to maintain saturation above 90%. Breathing treatments with bronchodilators. * #History of CVA with bilateral carotid stenosis: on eliquis and statin. has resultant dysphagia and has a PEG tube in situ for nutrition. #Hypertension: on hydralazine, losartan, metoprolol, amlodipine and clonidine. IV hydralazine prn #Paroxysmal afib: on metoprolol and eliquis. #Hypocalcemia: calcium is 6.6. Will replace and monitor #Acute on chronic anemia * Hemoglobin is down 7.7 from 9 yesterday. He is on Eliquis. He does have chronic anemia. Check stool for occult blood and iron profile. If he is positive for occult blood positive will hold Eliquis. * Has not had any hematochezia or hematemesis. * #Asymptomatic bacteriuria * Urine has 4+ bacteria but this is chronic. Will monitor. * #Anxiety and depression: on sertraline and mirtazapine #BPH with obstructive pathology: on flomax and finasteride. #GERD: on PPI #History of seizure disorder: on carbamazepine #PJ: not compliant with CPAP. titrate oxygen as needed to maintain sats >90% #Dysphagia: has PEG tube in situ. #DVT prophylaxis: on eliquis Code status: full code Charges/Coding Visit Charges Inpatient E&M: 84384 Subs Hosp L2
--- NOTE | 2025-05-13 14:21 | CASEMGMT ---
Addendum entered by Jacquie Michaud 05/13/25 14:49: Pt will need a new precert but can return once its submitted. SEYMOUR CM updated. Original Note: Discharge Planning Updates sent via [facility] to [facility] with note asking if precert is needed to return. Awaiting response. Jacquie Michaud DC Planning Asst.
[2025-05-13] MEDS: Jevity 1.5. 1,000 ML Bottle 300 ML GT ×3 (14:22→22:32)
--- NOTE | 2025-05-13 17:04 | NURSING ---
unable to get bp as pt keeps moving arms and then when tried obtaining from his leg, he then was wiggling his toes and then ended up ripping cuff off of his leg.
[2025-05-13 17:11] LABS: Ferritin 139 ng/mL (37-417); Iron 20 ug/dL (65-175); Iron Binding Capacity,Total 250 ug/dL (250-450); Iron Binding Capacity,Unsat 230 ug/dL (228-428)
[2025-05-13] MEDS: Acetaminophen 650 MG/20 ML UDC GT ×2 (17:12→22:25)
[2025-05-13] MEDS: guaiFENesin 10 ML UDC (200MG/10ML) PO (17:13)
--- NOTE | 2025-05-13 20:00 | CPS ---
Placed Pt 2 lpm nasal cannula.
--- NOTE | 2025-05-13 20:00 | CPS ---
Pt refusing to do the vest therapy.
[2025-05-13] MEDS: 0.9% Normal Saline (250mL Bag) 250 ML 15 ML IV (20:28)
[2025-05-13] MEDS: MELATONIN 3 MG TABLET GT (22:19)
[2025-05-13] MEDS: 0.9% Saline Lock 10 ML Syringe IV (22:28)
[2025-05-14] VITALS (20 sets, daily range): BP systolic 110–182; BP diastolic 43–95; PULSE 63–84; RESP 16–20; TEMP 36.3–37.2; O2SAT 82–95; BMI 17.4
[2025-05-14] MEDS: 0.9% Saline Lock 10 ML Syringe IV (05:11)
[2025-05-14] MEDS: Piperacil/Tazobactam 3.375 GM in 0.9% Normal Saline (50mL MB+) 50 ML IV ×3 (05:20→22:24)
[2025-05-14] MEDS: Jevity 1.5. 1,000 ML Bottle 300 ML GT ×5 (05:22→22:00)
[2025-05-14 06:55] LABS: Hematocrit 31.8 % (40-54); Hemoglobin 9.2 g/dL (13.0-16.5); Immature Granulocytes Count 0.250 X10^3/uL (0.0-0.0); Mean Corp Hgb Conc 28.9 g/dL (32-36); Mean Corpuscular Volume 84.6 fL (80-94); Mean Platelet Vol. 10.2 fl (6.2-12.0); NRBC Flagged by Analyzer 0.2 % (0-5); POSITIVE DIFFERENTIAL YES; Platelet Count 543 K/mm3 (150-450); RBC Distribution Width CV 17.4 % (11.6-14.6); RBC Distribution Width SD 54.0 fl (35.1-43.9); Red Blood Count 3.76 M/mm3 (4.6-6.2); White Blood Count 11.0 K/mm3 (4.4-11.0)
[2025-05-14 07:14] LABS: Anion Gap 11 (5-15); BUN 26 mg/dL (4-19); BUN/Creat Ratio 25.9 RATIO (10-20); Calcium,Total 8.6 mg/dL (7.6-11.0); Carbon Dioxide 22.6 mmol/L (21.0-32.0); Chloride 105 mmol/L (98-108); Estimated Creatinine Clearance 53.07 ml/min (50-250); Glucose 168 mg/dL (70-99); Potassium 3.9 mmol/L (3.3-5.1)
[2025-05-14] MEDS: Divalproex Sodium 125 MG Tablet GT ×2 (09:15→22:44)
[2025-05-14] MEDS: carBAMazepine 200 MG/10 ML UDC (WCH) GT ×4 (09:15→22:43)
[2025-05-14] MEDS: APIXABAN 2.5 MG TABLET (WCH) GT (09:15)
[2025-05-14] MEDS: Thiamine Hydrochloride 100 MG Tablet GT (09:16)
[2025-05-14 09:41] LABS: Vancomycin, Trough Level 20.3 ug/mL (5.0-15.0)
--- NOTE | 2025-05-14 10:12 | PCM.RX.CS ---
Consult Antibiotic Management Pharmacy has been consulted to manage selected antibiotic: Vancomycin Type of Intervention Type of Consult: Follow-up Suspected Infection Suspected Infection: Pneumonia Labs Labs: Sodium 139 mmol/L (133-145) 05/14/25 06:30 Potassium 3.9 mmol/L (3.3-5.1) 05/14/25 06:30 Chloride 105 mmol/L (98-108) 05/14/25 06:30 Carbon Dioxide 22.6 mmol/L (21.0-32.0) 05/14/25 06:30 Anion Gap 11 (5-15) 05/14/25 06:30 BUN 26 mg/dL (4-19) H 05/14/25 06:30 Creatinine 0.99 mg/dL (0.70-1.20) 05/14/25 06:30 Est GFR (MDRD) Non-Af 80 (>60) 05/14/25 06:30 BUN/Creatinine Ratio 25.9 RATIO (10-20) H 05/14/25 06:30 Glucose 168 mg/dL (70-99) H 05/14/25 06:30 Vancomycin Trough 20.3 ug/mL (5.0-15.0) H 05/14/25 08:55 Microbiology Microbiology: Microbiology 05/12/25 16:35 Urine Catheter - Pizano Urine Culture - Preliminary ESBL Escherichia coli 05/14/25 07:45 Stool Stool Occult Blood (LACI) - Final 05/12/25 20:03 Mucosa - Nasopharyngeal Respiratory Panel (PCR) - Final 05/12/25 16:55 Urine, Clean Catch Legionella Antigen - Final 05/12/25 16:55 Urine, Clean Catch Streptococcus pneumoniae Antigen (M - Final 05/12/25 16:35 Mucosa - Nose SARS-CoV-2, Influenza & RSV (PCR) - Final Dosing Weight Weight used for dosin.3 kg Estimated Creatinine Clearance Estimated Creatinine Clearance: 53 Goal Trough Goal Trough: 15-20 mcg/mL Pharmacy Plan for Drug Dosing Pharmacy Plan for Drug Dosing: Pharmacy Service will continue to monitor and adjust dosing as required. VANCOMYCIN LEVEL RECEIVED Current Vancomycin Dose: 1000 mg Q12H Number of Doses Received: 3 (x1 LD, x2 MD) Vancomycin Level: 20.3 Hours Since Last Dose: 12.5 Renal Function: SCr: 0.99, CrCl: 53 Renal Function Trend: Unstable Vancomycin Plan/Comments: Decreasing dose to 750 mg Q12H due to supratherapeutic trough level. Pending Level: 05/15/25 @ 2336 Date/Time Labs Ordered Labs to be done on [date and time ordered]: 05/15/25 @ 8120
--- NOTE | 2025-05-14 10:21 | CASEMGMT ---
Social Work- JEFFREY Guzmán, called and updated NATHANIEL on pt family requests regarding HCPOA changes. NATHANIEL updated that plan is for pt to return to [facility] and discussed [facility] concerns regarding family. Ramirez to call and coordinate with Steffany at [facility]. SHANE Cao
--- NOTE | 2025-05-14 10:22 | CASEMGMT ---
Discharge Planning Updates sent via [facility] to [facility] with request to submit for precert. Jacquie Michaud DC Planning Asst.
--- NOTE | 2025-05-14 10:53 | PN_ITS ---
Subjective Subjective Patient seen and examined with his nurse by his bedside. Patient was lying in bed. He still continues to take his oxygen off but he has been saturating at about 94%. Unable to do review of systems as he is no right communicative. He has remained hemodynamically stable. Objective Data Objective Data Vital Signs: Vital Signs Temp Pulse Resp BP Pulse Ox O2 Del Method O2 Flow Rate 97.3 F L 72 18 132/71 H 94 Blow-by 4 05/14/25 09:07 05/14/25 09:14 05/14/25 09:07 05/14/25 09:07 05/14/25 09:07 05/14/25 09:07 05/14/25 09:07 Oxygen Flow Rate (L/min) 4 Oxygen Delivery Method Blow-by Weight: 128 lb 4.944 oz Body Mass Index (BMI) 17.4 Intake & Output: Intake and Output for Last 24 Hours 05/12/25 05/13/25 05/14/25 23:59 23:59 23:59 Intake Total 200 / 200 3570 / 3570 1400 / 1400 Output Total 1750 / 1750 500 / 500 Balance 200 / -200 1820 / 1820 900 / 900 Medical Nutrition Assessment Dietitian: Malnutrition Criteria Met Start: 05/13/25 13:28 Freq: Status: Active Protocol: Document 05/13/25 13:28 JESS (Rec: 05/13/25 13:28 [id number]) Nutrition Malnutrition Evidence of Yes Malnutrition Exists Malnutrition (severe Chronic ): Evidenced By Weight Loss (Severe),Physical Changes (Severe) Clinical Problem Chronic Disease or Condition Related Malnutrition Etiology severe related to inadequate energy intake, increased energy expenditure and swallowing difficulty Signs/Symptoms as evidence by 6.6kg (10%) weight loss in 4 months and severe fat/muscle loss to orbital, temporal, and clavicle regions; BMI 17.4kg/m2 Status Active Problem Recommendation Dietitian Will continue home regimen for enteral nutrition Recommendations/ support as ordered. Changes Pt is NPO/dysphagia and enteral nutrition support to meet 100% of estimated nutrition needs. Continue Pivot 1.5 via PEG tube: 300mL bolus 5x daily with 100mL water flush before and after each bolus to provid 2250kcal, 140.7 grams protein, and 2125mL fluid Trend weight; enteral nutrition as ordered promotes weight gain. Lab / Micro Data 05/14/25 06:30 05/14/25 06:30 Labs: Laboratory Results - last 24 hr 05/13/25 15:41: Iron 20 L, TIBC 250, Iron Saturation 8.0 L, Unsaturated IBC 230, Ferritin 139 05/14/25 06:30: WBC 11.0, RBC 3.76 L, Hgb 9.2 L, Hct 31.8 L, MCV 84.6, MCH 24.5 L, MCHC 28.9 L D, RDW Std Deviation 54.0 H, RDW Coeff of Aly 17.4 H, Plt Count 543 H, MPV 10.2, Immature Gran % (Auto) 2.300 H, Neut % (Auto) 90.2 H, Lymph % (Auto) 5.5 L, [place] % (Auto) 1.5, Eos % (Auto) 0.0, Baso % (Auto) 0.5, Absolute Neuts (auto) 9.9 H, Absolute Lymphs (auto) 0.60 L, Nucleated RBC % 0.2, Sodium 139, Potassium 3.9, Chloride 105, Carbon Dioxide 22.6, Anion Gap 11, BUN 26 H, Creatinine 0.99, Estim Creat Clear Calc 53.07, Est GFR (MDRD) Non-Af 80, B UN/Creatinine Ratio 25.9 H, Glucose 168 H, Calcium 8.6 05/14/25 08:55: Vancomycin Trough 20.3 H Micro: Microbiology 05/12/25 16:35 Urine Catheter - Pizano Urine Culture - Preliminary ESBL Escherichia coli 05/14/25 07:45 Stool Stool Occult Blood (LACI) - Final 05/12/25 20:03 Mucosa - Nasopharyngeal Respiratory Panel (PCR) - Final 05/12/25 16:55 Urine, Clean Catch Legionella Antigen - Final 05/12/25 16:55 Urine, Clean Catch Streptococcus pneumoniae Antigen (M - Final 05/12/25 16:35 Mucosa - Nose SARS-CoV-2, Influenza & RSV (PCR) - Final Physical Exam Const alert Orientation / Consciousness: confused HEENT normocephalic and head/scalp atraumatic Mouth: dry mucous membranes Eyes EOMs intact bilaterally Neck supple and no JVD Lymph Lymphatic: no lymphedema noted Resp Resp Narrative: mildly diminished breath sounds bibasally, no wheezes or crackles. On room air. Cardio regular rate, regular rhythm, S1 normal heart sound, S2 normal heart sound and no murmurs GI normal to inspection, nondistended, normoactive bowel sounds, soft to palpation and non-tender GI Narrative: PEG tube in situ Extremity normal capillary refill, no clubbing, cyanosis or edema and no calf tenderness General Extremity: no tenderness to palpation of joints or extremities Skin General Skin Exam: no breakdown Neuro no focal motor deficits Neuro Narrative: confused, moves all extremities spontaneously Motor Exam: general weakness Psych Psych Narrative: confused Assessment & Plan Assessment/Plan (1) Pneumonia: (2) Acute on chronic hypoxic respiratory failure: PLAN: Plan #Acute on chronic hypoxic respiratory failure due to right basilar pneumonia with concern for aspiration * Was recently admitted in the hospital and discharged chest on 05/08/2025. Was admitted previously and managed for acute on chronic hypoxia due to COPD exacerbation. He now comes back with hypoxia, saturating at 82 to 85% on 2 L of oxygen in the half-way. * Chest x-ray showed right basilar infiltrate. He is being managed for acute on chronic hypoxic respiratory failure concerning for possible aspiration pneumonia * Currently on IV vancomycin and Zosyn. Respiratory panel was negative. * Breathing treatments with bronchodilators. Titrate oxygen to maintain saturation above 90%. * Urine cultures growing ESBL E. coli which is sensitive to Zosyn so we will continue. * #History of CVA with bilateral carotid stenosis: on eliquis and statin. has resultant dysphagia and has a PEG tube in situ for nutrition. #Hypertension: on hydralazine, losartan, metoprolol, amlodipine and clonidine. IV hydralazine prn #Paroxysmal afib: on metoprolol and eliquis. #Hypocalcemia: resolved. #Acute on chronic anemia * Hemoglobin is up to 9.2 today from 7.7 yesterday. He is on Eliquis. He does have chronic anemia. * iron profile showed iron deficiency anemia which is chronic. Stool for occult blood pending. * Has not had any hematochezia or hematemesis. * #UTI * Urine has 4+ bacteria but this is chronic. * urine cultures however growing ESBL E coli. * on IV zosyn, which should cover this also. * #Anxiety and depression: on sertraline and mirtazapine #BPH with obstructive pathology: stable. on flomax #GERD: on PPI #History of seizure disorder: on carbamazepine #PJ: not compliant with CPAP. titrate oxygen as needed to maintain sats >90% #Dysphagia: has PEG tube in situ. #DVT prophylaxis: on eliquis Code status: full code Charges/Coding Visit Charges Inpatient E&M: 72443 Subs Hosp L2
--- NOTE | 2025-05-14 10:58 | CPS ---
told by manager shift not to do the vest. patient does not want it and gets agitated.
[2025-05-14] MEDS: Vancomycin HCl 750 MG in 0.9% Normal Saline (250mL Bag) 250 ML 250 MG IV (11:42)
--- NOTE | 2025-05-14 17:26 | CON.PCM.GI_ITS ---
HPI Consult Data Date of Consult: 05/14/25 HPI Narrative Reason for Consultation: GI bleed/anemia HPI Narrative: tacho SINGH a The patient is a 74-year-old male with a complex medical history, including chronic hypoxic respiratory failure (on 2L NC), who presents to the [facility] ED from a residential facility (SNF) due to noted hypoxia. He was recently discharged on 05/08/25 after treatment for an acute on chronic COPD exacerbation and is currently on prednisone therapy. The residential facility staff noted his decreased oxygen saturation levels. The patient has a history of CVA resulting in significant chronic aphasia, dysphagia, and R-sided hemiplegia, and has a PEG tube for feeding. Due to his aphasia, he is unable to self-report symptoms. The SNF report does not detail specific symptoms of active GI bleeding such as melena, hematochezia, or hematemesis, only decreased hemoglobin and hypoxia. 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 History of atrial fibrillation Obstructive sleep apnea Seizure disorder Lupus anticoagulant disorder Bronchospasm, acute Aspiration into respiratory tract Acute and chronic respiratory failure with hypoxia Hypertension Dyspnea Acute CVA (cerebrovascular accident) Hypertension Weakness Failure to thrive Compression fx, lumbar spine Hypertension Falls Hypertension Closed fracture of right superior pubic ramus Multiple falls Compression fracture of thoracic vertebra Iron deficiency anemia Chronic respiratory failure with hypoxia Osteoporosis Lumbar compression fracture Compression fracture Hyperlipidemia Asthma Peripheral arterial occlusive disease Chronic obstructive pulmonary disease Coronary artery disease BPH (benign prostatic hyperplasia) Ulcerative colitis Peripheral vascular disease Anxiety COPD (chronic obstructive pulmonary disease) with emphysema Closed fracture of right inferior pubic ramus Acute UTI COPD (chronic obstructive pulmonary disease) UTI (urinary tract infection) Depression Diabetes Kidney stones Chronic pain Pancreatitis On home oxygen therapy Irregular heart beat Atrial fibrillation Stroke/cerebrovascular accident Smoker Falls frequently Seizures Sleep apnea COPD (chronic obstructive pulmonary disease) Asthma High cholesterol Tobacco abuse Home Medications Medication Instructions Recorded Last Taken Type acetaminophen 325 mg tablet 650 mg (2 x 325 mg) feedin g tube 12/24/24 Unknown Rx Q6H PRN PRN Pain 1-10 Or Fever>100.7 #0 tabs amlodipine 10 mg tablet 10 mg G-tube DAILY.RT bp #0 tabs 12/24/24 Unknown Rx carbamazepine 100 mg/5 mL oral 200 mg (10 mL) G-tube 4 X/DAY #0 mL 12/24/24 Unknown Rx suspension cholecalciferol (vitamin D3) 50 50 mcg feeding tube DA KATHERINE 12/24/24 01/05/25 Rx mcg (2,000 unit) tablet SUPPLEMENT 30 days #30 tabs clonidine 0.2 mg/24 hr weekly 0.2 mg transdermal Q7D b lood 12/24/24 05/03/25 Rx transdermal patch pressure #0 ea ergocalciferol (vitamin D2) 1,250 1,250 mcg feeding tu be Q7D 12/24/24 12/13/24 08:58 Rx mcg (50,000 unit) capsule (Vitamin SUPPLEMENT #0 caps D2) ipratropium 0.5 mg-albuterol 3 mg 3 ml inhalation .q6h wa wheezes #0 12/24/24 Unknown Rx (2.5 mg base)/3 mL nebulization mL soln losartan 100 mg tablet 100 mg feeding tube DAILY Bl ood 12/24/24 12/13/24 08:58 Rx pressure 30 days #30 tabs mirtazapine 15 mg tablet 15 mg feeding tube QHS anti 12/24/24 12/12/24 20:59 Rx depressant 30 days #30 tabs sertraline 100 mg tablet 100 mg feeding tube DAILY Unknown Rx DEPRESSION 30 days #30 tabs thiamine HCl (vitamin B1) 100 mg 100 mg G-tube BREAKFA ST supplement 12/24/24 Unknown Rx tablet #0 tabs hydralazine 25 mg tablet 50 mg G-tube 3XD blood press ure 01/03/25 Unknown History atorvastatin 40 mg tablet 40 mg G-tube QHS hld #0 tabs 01/08/25 Unknown Rx lansoprazole 30 mg capsule,delayed 30 mg feeding tube BID gerd #1 cap 01/08/25 Unknown Rx release (Prevacid) apixaban 5 mg tablet (Eliquis) 2.5 mg G-tube BID blood thinner 05/03/25 Unknown History albuterol sulfate 2.5 mg/3 mL 2.5 mg (3 mL) inhalation Q2H PRN 05/08/25 Unknown Rx (0.083 %) solution for nebulization PRN Dyspnea, wheez ing #0 mL menthol 0.44 %-zinc oxide 20.6 % 1 applic topical 4X/D AY skin 05/08/25 Unknown Rx topical ointment (Calmoseptine) irritation #0 grams prednisone 20 mg tablet 20 mg PO DAILY steroid #10 t abs 05/08/25 Unknown Rx bisacodyl 10 mg rectal suppository 10 mg WV PRN bowel movement 05/12/25 Unknown History divalproex 125 mg tablet,delayed 125 mg PO BID seizure 05/12/25 Unknown History release (Depakote) glucagon 1 mg solution for 1 mg IM Q20M PRN hypoglycem ia 05/12/25 Unknown History injection (Glucagon Emergency Kit) guaifenesin 100 mg/5 mL oral 200 mg PO Q4H PRN congest ion/COUGH 05/12/25 Unknown History liquid (Adult Wal-Tussin) magnesium hydroxide 400 mg/5 mL 30 ml PO DAILY bowel m ovement 05/12/25 Unknown History oral suspension (Gentle Laxative (magnesium hydroxide)) metoprolol tartrate 50 mg tablet 50 mg feeding tube BI D heart 05/12/25 Unknown History tamsulosin 0.4 mg capsule 0.4 mg PO QHS bph 05/12/25 U nknown History Allergy/AdvReac Type Severity Reaction Status Date / Time No Known Allergies Allergy Verified 05/12/25 16:21 Family History Mother Heart disease CVA (cerebral vascular accident) Hypertension Father Heart disease CVA (cerebral vascular accident) Hypertension Surgical History S/P arterial stent History of appendectomy Social History household members: caregiver housing: fdc 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 Smoking Status: Light Smoker (<10/day) alcohol intake: former details: Former alcoholic quit several years ago substance use type: does not use caffeine: Yes Type: coffee Number of servings: 3 ROS Constitutional Constitutional: Denies fatigue, fever(s), poor appetite, weight gain or weight loss Gastrointestinal Gastrointestinal: Denies belching, bloating, change in bowel habits, change in stool character, chewing difficulty, coffee ground emesis, constipation, cramping, diarrhea, dyspepsia, dysphagia, early satiety, excessive flatus, fecal incontinence, heartburn, hematemesis, hematochezia, hemorrhoids, loose stools, melena, nausea, odynophagia, rectal bleeding, tenesmus, vomiting or weight changes Physical Exam Const alert, oriented x3, no apparent distress and healthy appearing General Appearance: cooperative GI normal to inspection, nondistended, normoactive bowel sounds, soft to palpation, non-tender and non-distended Percussion: normal to percussion Rectal Exam: deferred Medical Records Data Medical Nutrition Assessment Dietitian: Malnutrition Criteria Met Start: 05/13/25 13:28 Freq: Status: Active Protocol: Document 05/13/25 13:28 (Rec: 05/13/25 13:28 [id number]) Nutrition Malnutrition Evidence of Yes Malnutrition Exists Malnutrition (severe Chronic ): Evidenced By Weight Loss (Severe),Physical Changes (Severe) Clinical Problem Chronic Disease or Condition Related Malnutrition Etiology severe related to inadequate energy intake, increased energy expenditure and swallowing difficulty Signs/Symptoms as evidence by 6.6kg (10%) weight loss in 4 months and severe fat/muscle loss to orbital, temporal, and clavicle regions; BMI 17.4kg/m2 Status Active Problem Recommendation Dietitian Will continue home regimen for enteral nutrition Recommendations/ support as ordered. Changes Pt is NPO/dysphagia and enteral nutrition support to meet 100% of estimated nutrition needs. Continue Pivot 1.5 via PEG tube: 300mL bolus 5x daily with 100mL water flush before and after each bolus to provid 2250kcal, 140.7 grams protein, and 2125mL fluid Trend weight; enteral nutrition as ordered promotes weight gain. Lab / Micro Data 05/14/25 06:30 05/14/25 06:30 Labs: Laboratory Results - last 24 hr 05/14/25 06:30: WBC 11.0, RBC 3.76 L, Hgb 9.2 L, Hct 31.8 L, MCV 84.6, MCH 24.5 L, MCHC 28.9 L D, RDW Std Deviation 54.0 H, RDW Coeff of Aly 17.4 H, Plt Count 543 H, MPV 10.2, Immature Gran % (Auto) 2.300 H, Neut % (Auto) 90.2 H, Lymph % (Auto) 5.5 L, [place] % (Auto) 1.5, Eos % (Auto) 0.0, Baso % (Auto) 0.5, Absolute Neuts (auto) 9.9 H, Absolute Lymphs (auto) 0.60 L, Nucleated RBC % 0.2, Sodium 139, Potassium 3.9, Chloride 105, Carbon Dioxide 22.6, Anion Gap 11, BUN 26 H, Creatinine 0.99, Estim Creat Clear Calc 53.07, Est GFR (MDRD) Non-Af 80, B UN/Creatinine Ratio 25.9 H, Glucose 168 H, Calcium 8.6 05/14/25 08:55: Vancomycin Trough 20.3 H Micro: Microbiology 05/14/25 15:00 Stool Clostridioides difficile (PCR) - Final 05/12/25 16:35 Urine Catheter - Pizano Urine Culture - Preliminary ESBL Escherichia coli 05/14/25 07:45 Stool Stool Occult Blood (LACI) - Final Assessment & Plan Assessment/Plan (1) Acute on chronic hypoxic respiratory failure: (2) Aphasia: (3) CVA (cerebral vascular accident): QUALIFIERS: CVA mechanism: unspecified Qualified Code(s): I63.9 - Cerebral infarction, unspecified (4) Anemia: PLAN: 74 y/o M w/ extensive PMHx presenting with acute on chronic hypoxia and a decrease in hemoglobin, currently on Coumadin therapy. * The primary concern is the potential for an active GI bleed precipitated or worsened by Coumadin, given the drop in Hb. The history of chronic anemia/Fe deficiency anemia means the source needs identifying. * The patient's complex respiratory status (COPD/Asthma w/ Chronic Hypoxic Respiratory Failure, recent exacerbation, on prednisone) makes him high-risk for any invasive procedure, including endoscopy. * The current hypoxia needs immediate stabilization. Plan * GI Bleed Workup: * I do not think is Coumadin needs to be reversed at this time. He is a very high stroke risk. Recommend Protonix 40 mg IV every 12 hours. * Endoscopy Decision: * The decision for an urgent EGD/colonoscopy will depend heavily on the patient's hemodynamic stability, the severity/rate of Hb drop, and the ability to safely correct coagulopathy. * I discussed the risks of procedural sedation/endoscopy in a patient's POA with severe respiratory compromise, dysphagia, CVA history, and PEG tube. The patient's POA underlying respiratory status is a major consideration. Charges/Coding Visit Charges Inpatient E&M: 98050 Init Hosp L3
--- NOTE | 2025-05-14 20:21 | NURSING ---
pt confused, hitting and grabbing staff during routine hs care, also grabbing at RT during treatment, pt removed all clothing including his attends. bath given, linens and attends changed
[2025-05-14] MEDS: Pantoprazole Sodium 40 MG in 0.9% Normal Saline (100mL MB+) 100 ML 300 MG IV (22:24)
[2025-05-14] MEDS: MELATONIN 3 MG TABLET GT (23:01)
[2025-05-14] MEDS: Acetaminophen 650 MG/20 ML UDC GT (23:01)
[2025-05-15] VITALS (18 sets, daily range): BP systolic 119–170; BP diastolic 56–78; PULSE 56–75; RESP 16–24; TEMP 36.2–37.3; O2SAT 85–100; BMI 17.7
[2025-05-15] MEDS: Vancomycin HCl 750 MG in 0.9% Normal Saline (250mL Bag) 250 ML 250 MG IV ×2 (03:13→12:25)
[2025-05-15] MEDS: Piperacil/Tazobactam 3.375 GM in 0.9% Normal Saline (50mL MB+) 50 ML IV ×3 (06:02→21:36)
[2025-05-15] MEDS: Jevity 1.5. 1,000 ML Bottle 300 ML GT ×5 (06:03→23:02)
[2025-05-15] MEDS: Acetaminophen 650 MG/20 ML UDC GT (06:47)
--- NOTE | 2025-05-15 07:36 | CPS ---
Pt. refused vest therapy
--- NOTE | 2025-05-15 07:36 | CPS ---
Pt. is saturating 91% on 4 lpm, pt. 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
--- NOTE | 2025-05-15 07:40 | CPS ---
Pt. is refusing
[2025-05-15 07:50] LABS: Hematocrit 33.4 % (40-54); Hemoglobin 9.9 g/dL (13.0-16.5); Immature Granulocytes Count 0.240 X10^3/uL (0.0-0.0); Mean Corp Hgb Conc 29.6 g/dL (32-36); Mean Corpuscular Volume 83.9 fL (80-94); Mean Platelet Vol. 9.5 fl (6.2-12.0); NRBC Flagged by Analyzer 0.3 % (0-5); Platelet Count 518 K/mm3 (150-450); RBC Distribution Width CV 17.5 % (11.6-14.6); RBC Distribution Width SD 53.7 fl (35.1-43.9); Red Blood Count 3.98 M/mm3 (4.6-6.2); White Blood Count 12.0 K/mm3 (4.4-11.0)
[2025-05-15 08:23] LABS: Anion Gap 11 (5-15); BUN 21 mg/dL (4-19); BUN/Creat Ratio 21.2 RATIO (10-20); Calcium,Total 8.8 mg/dL (7.6-11.0); Carbon Dioxide 26.2 mmol/L (21.0-32.0); Chloride 101 mmol/L (98-108); Estimated Creatinine Clearance 54.72 ml/min (50-250); Glucose 154 mg/dL (70-99); Potassium 4.3 mmol/L (3.3-5.1)
[2025-05-15] MEDS: Thiamine Hydrochloride 100 MG Tablet GT (09:16)
[2025-05-15] MEDS: carBAMazepine 200 MG/10 ML UDC (WCH) GT ×4 (09:16→21:49)
[2025-05-15] MEDS: Divalproex Sodium 125 MG Tablet GT ×2 (09:16→21:52)
[2025-05-15] MEDS: Pantoprazole Sodium 40 MG in 0.9% Normal Saline (100mL MB+) 100 ML 300 MG IV ×2 (10:12→21:08)
--- NOTE | 2025-05-15 10:50 | CPS ---
Tx. started on pt. pt. then refused to finish tx. tx. lasted about 1 minute
--- NOTE | 2025-05-15 10:51 | CPS ---
pt. refused vest therapy
[2025-05-15] MEDS: Loperamide (Oral Liquid) 1 MG/7.5 ML ML 4 MG GT (14:43)
[2025-05-15] MEDS: Loperamide (Oral Liquid) 1 MG/7.5 ML ML 2 MG GT (17:06)
--- NOTE | 2025-05-15 19:02 | PN.HOSP_ITS ---
Reason for Visit Chief Complaint: Wheezing, rhonchi, hypoxia at [facility]. Subjective Subjective Patient sitting up in bed, confused but did not voice any specific complaints Objective Data Objective Data Vital Signs: Vital Signs Temp Pulse Resp BP Pulse Ox O2 Del Method O2 Flow Rate 98.1 F 66 18 134/67 H 85 Room Air 3 05/15/25 15:01 05/15/25 15:01 05/15/25 15:01 05/15/25 15:01 05/15/25 15:02 05/15/25 15:02 05/15/25 15:01 Oxygen Flow Rate (L/min) 3 Oxygen Delivery Method Room Air Weight: 59.4 kg Body Mass Index (BMI) 17.7 Intake & Output: Intake and Output for Last 24 Hours 05/13/25 05/14/25 05/15/25 23:59 23:59 23:59 Intake Total 3570 / 3570 2565 / 3065 2780 / 2780 Output Total 1750 / 1750 500 / 500 Balance 1820 / 1820 2065 / 2565 2780 / 2780 Medical Nutrition Assessment Dietitian: Malnutrition Criteria Met Start: 05/13/25 13:28 Freq: Status: Active Protocol: Document 05/13/25 13:28 LO (Rec: 05/13/25 13:28 [id number]) Nutrition Malnutrition Evidence of Yes Malnutrition Exists Malnutrition (severe Chronic ): Evidenced By Weight Loss (Severe),Physical Changes (Severe) Clinical Problem Chronic Disease or Condition Related Malnutrition Etiology severe related to inadequate energy intake, increased energy expenditure and swallowing difficulty Signs/Symptoms as evidence by 6.6kg (10%) weight loss in 4 months and severe fat/muscle loss to orbital, temporal, and clavicle regions; BMI 17.4kg/m2 Status Active Problem Recommendation Dietitian Will continue home regimen for enteral nutrition Recommendations/ support as ordered. Changes Pt is NPO/dysphagia and enteral nutrition support to meet 100% of estimated nutrition needs. Continue Pivot 1.5 via PEG tube: 300mL bolus 5x daily with 100mL water flush before and after each bolus to provid 2250kcal, 140.7 grams protein, and 2125mL fluid Trend weight; enteral nutrition as ordered promotes weight gain. Lab / Micro Data 05/15/25 07:35 05/15/25 07:35 Labs: Laboratory Results - last 24 hr 05/15/25 07:35: WBC 12.0 H, RBC 3.98 L, Hgb 9.9 L, Hct 33.4 L, MCV 83.9, MCH 24.9 L, MCHC 29.6 L, RDW Std Deviation 53.7 H, RDW Coeff of Aly 17.5 H, Plt Count 518 H, MPV 9.5, Immature Gran % (Auto) 2.000 H, Neut % (Auto) 90.2 H, L ymph % (Auto) 6.2 L, Coos % (Auto) 1.3, Eos % (Auto) 0.1, Baso % (Auto) 0.2, A bsolute Neuts (auto) 10.8 H, Absolute Lymphs (auto) 0.74 L, Nucleated RBC % 0.3, Sodium 138, Potassium 4.3, Chloride 101, Carbon Dioxide 26.2, Anion Gap 11, BUN 21 H, Creatinine 0.98, Estim Creat Clear Calc 54.72, Est GFR (MDRD) Non-Af 80, B UN/Creatinine Ratio 21.2 H, Glucose 154 H, Calcium 8.8 Micro: Microbiology 05/12/25 16:35 Urine Catheter - [facility]ano Urine Culture - Final ESBL Escherichia coli 05/12/25 18:01 Blood Culture (Wb) - Anticubital Right Blood Culture - Preliminary No growth in 48 hours. 05/12/25 16:25 Blood Culture (Wb) - Right Forearm Blood Culture - Preliminary No growth in 48 hours. 05/14/25 15:00 Stool Clostridioides difficile (PCR) - Final 05/14/25 07:45 Stool Stool Occult Blood (LACI) - Final 05/12/25 20:03 Mucosa - Nasopharyngeal Respiratory Panel (PCR) - Final 05/12/25 16:55 Urine, Clean Catch Legionella Antigen - Final 05/12/25 16:55 Urine, Clean Catch Streptococcus pneumoniae Antigen (M - Final 05/12/25 16:35 Mucosa - Nose SARS-CoV-2, Influenza & RSV (PCR) - Final Physical Exam Narrative General: Alert, not oriented HEENT: Atraumatic Eyes: Anicteric, normal conjunctiva, extraocular movements grossly intact Neck: Supple Respiratory: Clear to auscultation bilaterally, normal respiratory effort Cardiovascular: Regular rate and rhythm GI: Soft, nontender, nondistended Extremities: No edema Musculoskeletal: Moving all extremities Neuro: No overt focal neurological deficits Skin: No rashes appreciated Psych: Evasive Assessment & Plan Assessment/Plan (1) Pneumonia: (2) Acute on chronic hypoxic respiratory failure: PLAN: Plan #Acute on chronic hypoxic respiratory failure due to right basilar pneumonia with concern for aspiration * Was recently admitted in the hospital and discharged chest on 05/08/2025. Was admitted previously and managed for acute on chronic hypoxia due to COPD exacerbation. He now comes back with hypoxia, saturating at 82 to 85% on 2 L of oxygen in the snf. * Chest x-ray showed right basilar infiltrate. He is being managed for acute on chronic hypoxic respiratory failure concerning for possible aspiration pneumonia * Currently on IV vancomycin and Zosyn. Respiratory panel was negative. * Breathing treatments with bronchodilators. Titrate oxygen to maintain saturation above 90%. * Urine cultures growing ESBL E. coli which is sensitive to Zosyn so we will continue. -05/15: Continue antibiotics, EGD tomorrow, continue respiratory support, patient keeps taking off oxygen but decreased to 85% on room air, continue to encourage nasal cannula #History of CVA with bilateral carotid stenosis: on eliquis and statin. has resultant dysphagia and has a PEG tube in situ for nutrition. -05/15: Continue supportive care #Hypertension: on hydralazine, losartan, metoprolol, amlodipine and clonidine. IV hydralazine prn -05/15: BP 134/67 most recently, continue current management #Acute on chronic anemia * Hemoglobin is up to 9.2 today from 7.7 yesterday. He is on Eliquis. He does have chronic anemia. * iron profile showed iron deficiency anemia which is chronic. Stool for occult blood pending. * Has not had any hematochezia or hematemesis. -05/15: Hemoglobin 9.9 today, plan is for EGD, patient's anticoagulation currently held #UTI * Urine has 4+ bacteria but this is chronic. * urine cultures however growing ESBL E coli. * on IV zosyn, which should cover this also. -05/15: Continue present management Chronic medical problems and/or problems not being actively addressed during today's encounter: #Paroxysmal afib: on metoprolol and eliquis. #Anxiety and depression: on sertraline and mirtazapine #BPH with obstructive pathology: stable. on flomax #GERD: on PPI #History of seizure disorder: on carbamazepine #PJ: not compliant with CPAP. titrate oxygen as needed to maintain sats >90% #Dysphagia: has PEG tube in situ. #DVT prophylaxis: on eliquis Code status: full code Time spent in the patient's overall evaluation,decision-making process, review of diagnostic data, adjustment of management, discussion with other providers, nursing nursing and ancillary staff involved in patient's care documentation, 37 Minutes Charges/Coding Visit Charges Inpatient E&M: 81281 Subs Hosp L2
[2025-05-15] MEDS: 0.9% Normal Saline (250mL Bag) 250 ML 15 ML IV (21:45)
[2025-05-16] VITALS (21 sets, daily range): BP systolic 126–180; BP diastolic 54–88; PULSE 58–86; RESP 15–19; TEMP 36.2–36.9; O2SAT 86–100; BMI 18.1
[2025-05-16 00:11] LABS: Vancomycin, Trough Level 20.5 ug/mL (5.0-15.0)
--- NOTE | 2025-05-16 00:17 | PCM.RX.CS ---
Consult Antibiotic Management Pharmacy has been consulted to manage selected antibiotic: Vancomycin Type of Intervention Type of Consult: Follow-up Labs Labs: Sodium 138 mmol/L (133-145) 05/15/25 07:35 Potassium 4.3 mmol/L (3.3-5.1) 05/15/25 07:35 Chloride 101 mmol/L (98-108) 05/15/25 07:35 Carbon Dioxide 26.2 mmol/L (21.0-32.0) 05/15/25 07:35 Anion Gap 11 (5-15) 05/15/25 07:35 BUN 21 mg/dL (4-19) H 05/15/25 07:35 Creatinine 0.98 mg/dL (0.70-1.20) 05/15/25 07:35 Est GFR (MDRD) Non-Af 80 (>60) 05/15/25 07:35 BUN/Creatinine Ratio 21.2 RATIO (10-20) H 05/15/25 07:35 Glucose 154 mg/dL (70-99) H 05/15/25 07:35 Vancomycin Trough 20.5 ug/mL (5.0-15.0) H 05/15/25 23:24 Microbiology Microbiology: Microbiology 05/12/25 16:35 Urine Catheter - [facility]ano Urine Culture - Final ESBL Escherichia coli 05/12/25 18:01 Blood Culture (Wb) - Anticubital Right Blood Culture - Preliminary No growth in 48 hours. 05/12/25 16:25 Blood Culture (Wb) - Right Forearm Blood Culture - Preliminary No growth in 48 hours. 05/14/25 15:00 Stool Clostridioides difficile (PCR) - Final 05/14/25 07:45 Stool Stool Occult Blood (LACI) - Final 05/12/25 20:03 Mucosa - Nasopharyngeal Respiratory Panel (PCR) - Final 05/12/25 16:55 Urine, Clean Catch Legionella Antigen - Final 05/12/25 16:55 Urine, Clean Catch Streptococcus pneumoniae Antigen (M - Final 05/12/25 16:35 Mucosa - Nose SARS-CoV-2, Influenza & RSV (PCR) - Final Goal Trough Goal Trough: 15-20 mcg/mL Pharmacy Plan for Drug Dosing Pharmacy Plan for Drug Dosing: Pharmacy Service will continue to monitor and adjust dosing as required. TROUGH 12.5 @ 11 HOURS. HOLD DOSE AND DRAW RANDOM LEVEL IN 6 HOURS. Follow-Up Labs Follow-Up Labs: Trough: Vancomycin Date/Time Labs Ordered Labs to be done on [date and time ordered]: 05/16 @ 0500
[2025-05-16 05:39] LABS: Hematocrit 32.5 % (40-54); Hemoglobin 9.7 g/dL (13.0-16.5); Immature Granulocytes Count 0.200 X10^3/uL (0.0-0.0); Mean Corp Hgb Conc 29.8 g/dL (32-36); Mean Corpuscular Volume 83.8 fL (80-94); Mean Platelet Vol. 9.5 fl (6.2-12.0); NRBC Flagged by Analyzer 0.2 % (0-5); Platelet Count 612 K/mm3 (150-450); RBC Distribution Width CV 17.5 % (11.6-14.6); RBC Distribution Width SD 53.1 fl (35.1-43.9); Red Blood Count 3.88 M/mm3 (4.6-6.2); White Blood Count 13.8 K/mm3 (4.4-11.0)
[2025-05-16] MEDS: Piperacil/Tazobactam 3.375 GM in 0.9% Normal Saline (50mL MB+) 50 ML IV ×3 (05:42→23:24)
[2025-05-16] MEDS: Jevity 1.5. 1,000 ML Bottle 300 ML GT ×4 (05:44→21:21)
[2025-05-16] MEDS: Loperamide (Oral Liquid) 1 MG/7.5 ML ML 2 MG GT (05:45)
[2025-05-16 06:12] LABS: Anion Gap 11 (5-15); BUN 21 mg/dL (4-19); BUN/Creat Ratio 22.6 RATIO (10-20); Calcium,Total 8.8 mg/dL (7.6-11.0); Carbon Dioxide 26.6 mmol/L (21.0-32.0); Chloride 101 mmol/L (98-108); Estimated Creatinine Clearance 58.20 ml/min (50-250); Glucose 82 mg/dL (70-99); Potassium 4.6 mmol/L (3.3-5.1); Vancomycin, Random Level 17.5 ug/mL (0.0-15.0)
--- NOTE | 2025-05-16 06:16 | PCM.RX.CS ---
Consult Antibiotic Management Pharmacy has been consulted to manage selected antibiotic: Vancomycin Type of Intervention Type of Consult: Follow-up Labs Labs: Sodium 139 mmol/L (133-145) 05/16/25 05:25 Potassium 4.6 mmol/L (3.3-5.1) 05/16/25 05:25 Chloride 101 mmol/L (98-108) 05/16/25 05:25 Carbon Dioxide 26.6 mmol/L (21.0-32.0) 05/16/25 05:25 Anion Gap 11 (5-15) 05/16/25 05:25 BUN 21 mg/dL (4-19) H 05/16/25 05:25 Creatinine 0.94 mg/dL (0.70-1.20) 05/16/25 05:25 Est GFR (MDRD) Non-Af 85 (>60) 05/16/25 05:25 BUN/Creatinine Ratio 22.6 RATIO (10-20) H 05/16/25 05:25 Glucose 82 mg/dL (70-99) 05/16/25 05:25 Vancomycin Trough 20.5 ug/mL (5.0-15.0) H 05/15/25 23:24 Random Vancomycin 17.5 ug/mL (0.0-15.0) H 05/16/25 05:25 Microbiology Microbiology: Microbiology 05/12/25 16:35 Urine Catheter - [facility] Urine Culture - Final ESBL Escherichia coli 05/12/25 18:01 Blood Culture (Wb) - Anticubital Right Blood Culture - Preliminary No growth in 48 hours. 05/12/25 16:25 Blood Culture (Wb) - Right Forearm Blood Culture - Preliminary No growth in 48 hours. 05/14/25 15:00 Stool Clostridioides difficile (PCR) - Final 05/14/25 07:45 Stool Stool Occult Blood (LACI) - Final 05/12/25 20:03 Mucosa - Nasopharyngeal Respiratory Panel (PCR) - Final 05/12/25 16:55 Urine, Clean Catch Legionella Antigen - Final 05/12/25 16:55 Urine, Clean Catch Streptococcus pneumoniae Antigen (M - Final 05/12/25 16:35 Mucosa - Nose SARS-CoV-2, Influenza & RSV (PCR) - Final Goal Trough Goal Trough: 15-20 mcg/mL Pharmacy Plan for Drug Dosing Pharmacy Plan for Drug Dosing: Pharmacy Service will continue to monitor and adjust dosing as required. RANDOM LEVEL 17.5. START 500MG Q12H AND DRAW TROUGH PRIOR TO 4TH DOSE Follow-Up Labs Follow-Up Labs: Trough: Vancomycin Date/Time Labs Ordered Labs to be done on [date and time ordered]: 05/17 @ 0600
[2025-05-16] MEDS: Vancomycin HCl 500 MG in 0.9% Normal Saline (100mL Bag) 100 ML 100 MG IV (06:31)
[2025-05-16] MEDS: Lactated Ringers 1,000 ML 15 ML IV (09:32)
--- NOTE | 2025-05-16 09:32 | PRE.ANES_ITS ---
ASA Classification* ASA Classification ASA Classification: 3 Assessment & Plan Anesthesia* Anesthesia Assessment Anesthesia Assessment: Discussed sedation and/or anesthesia options, risks, benefits, and alternatives with patient/parents/legal guardian/POA. Questions invited. The patient/parents/legal guardian/POA seems to understand and agrees to proceed with anesthesia plan. Reviewed the physical assessment, medical history, allergy history and patient home medications list prior to surgery/procedure/anesthetic and documented any changes. Performed airway and anesthesia risk assessments. Anesthesia Type Anesthesia Type: MAC Anesthesia Focused Assessment* Temperature: 97.2 F Pulse Rate: 71 Blood Pressure: 127/88 Respiratory Rate: 18 Pulse Ox: 94 Oxygen Flow Rate (L/min): 5 Airway Assessment Mouth opens: >3 cm Mallampati Score: II Labs Anesthesia Preop lab: CBC WBC, (4.4-11.0) 13.8 K/mm3 H Today, 05:25 RBC, (4.6-6.2) 3.88 M/mm3 L Today, 05:25 Hgb, (13.0-16.5) 9.7 g/dL L Today, 05:25 Hct, (40-54) 32.5 % L Today, 05:25 Plt Count, (150-450) 612 K/mm3 H Today, 05:25 CHEMISTRY Potassium, (3.3-5.1) 4.6 mmol/L Today, 05:25 Sodium, (133-145) 139 mmol/L Today, 05:25 Magnesium, (1.5-2.2) 2.2 mg/dL 05/03/25, 18:10 Phosphorus, (2.7-4.5) 3.2 mg/dL 01/06/25, 02:30 BUN, (4-19) 21 mg/dL H Today, 05:25 Creatinine, (0.70-1.20) 0.94 mg/dL Today, 05:25 Glucose, (70-99) 82 mg/dL Today, 05:25 POC Glucose, (74-106) 83 mg/dL 02/20/24, 17:14 TSH, (0.300-4.200) 3.380 uIU/mL 12/17/24, 16:00 COAG PT, (11.7-14.9) 14.1 SECONDS 05/12/25, 16:25 Pre-Assessment Diagnosis/Proposed Procedure Planned Operative Procedure(s): EGD 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 When Was Last Pacemaker Check QUESTION #4 FULL TEXT: You/Your Family Experience fever (hyperthermia) with Anesthesia Last Oral Intake Last Oral intake: Last Oral Intake NPO since Meds taken in AM with sips of water? Meds patient instructed to take am of surgery PONV PONV - laborer brush clearing: PONV - laborer brush clearing Female HX of Motion Sickness HX of N/V After Surgery Non-Smoker Duration of Surgery greater than 60 minutes Number of Risk Factors PONV Score Height & Weight Height & Weight: Anesthesia: Height & Weight Height 6 ft 0.05 in 05/13/25 12:48 Weight: 60.6 kg 05/16/25 05:47 Body Mass Index (BMI) 18.1 05/16/25 05:47 Respiratory Assessment Respiratory Assessment - laborer brush clearing: Respiratory Tract Infection Hx - laborer brush clearing Hx Respiratory Tract Infection Yes 04/04/25 13:05 STOP Sleep Apnea STOP Sleep Apnea - laborer brush clearing: STOP Sleep Apnea - laborer brush clearing Hx Hypertension Yes 05/13/25 15:47 Hx Sleep Apnea Yes 05/12/25 20:30 CPAP No: noncompliant 05/12/25 20:30 BIPAP No 05/12/25 20:30 Do you snore loudly (louder than talking or can be heard Do you often feel tired/ fatigued/ sleepy during daytime? Has anyone observed you stop breathing during sleep? STOP Results Positive 05/12/25 20:30 QUESTION #5 FULL TEXT : Do you snore loudly (louder than talking or can be heard through closed doors)? 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 Specify any problems Hx of Preganancy in last 3 Months Nurse Filling Out Transfusion & Questions: Date: Time: Patient unable to answer at Yes 05/12/25 20:30 this time (ie. confused, unrespo /Reproduction History /Reproductive History - laborer brush clearing: /Reproductive Hx- laborer brush clearing Hx Now Gestational Age (in weeks): EDC: Hx Hx Para Hx Section SAB No 04/04/25 13:05 Does the father of the baby or his family experience fever w Father of the baby Malignant Hypertension history comment Active Medications Active Medications: Current Medications Generic Name Dose Route Start Last Admin Trade Name Freq PRN Reason Stop Dose Admin Acetaminophen 650 mg 05/12/25 20:12 05/15/25 06:47 Acetaminophen 650 Mg/20 Ml Udc GT 650 mg Q4H PRN PRN Administration fever, pain 1-10 Al Hydroxide/Mg Hydroxide 30 ml 05/12/25 20:12 Mag Hydrox/Al Hydrox/Simeth 30 Ml Udc GT Q6H PRN PRN Gastric Burning Albuterol Sulfate 2.5 mg 05/12/25 20:12 Albuterol 2.5 Mg/3 Ml Vial.Neb. INHALATION Q2H PRN PRN Dyspnea, wheezing Albuterol/Ipratropium 3 ml 05/12/25 20:12 05/16/25 06:55 Ipratropium/Albuterol Sulfate 3 Ml Ampul.Neb INHALATION 3 ml Q4HWA.RT LEON Administration Amlodipine Besylate 10 mg 05/12/25 20:12 05/15/25 09:16 Amlodipine 10 Mg Tablet GT 10 mg DAILY LEON Administration Protocol Apixaban 2.5 mg 05/12/25 22:00 05/14/25 09:15 Apixaban 2.5 Mg Tablet ([facility]) GT 2.5 mg On Hold: 05/14/25 15:03 BID LEON Administration Atorvastatin Calcium 40 mg 05/12/25 22:00 05/15/25 21:50 Atorvastatin Calcium 40 Mg Tablet GT 40 mg QHS LEON Administration Bisacodyl 10 mg 05/12/25 20:12 Bisacodyl 10 Mg Suppository RC PRN PRN Constipation Calamine/Phenol 1 applic 05/12/25 22:00 05/15/25 21:48 Menthol/Lanolin/Calamine/Znox 113 Gm Tube TOPICAL 1 applic 4X/DAY LEON Administration Protocol Carbamazepine 200 mg 05/12/25 22:00 05/15/25 21:49 Carbamazepine 200 Mg/10 Ml Udc ([facility]) GT 200 mg 4X/DAY LEON Administration Clonidine HCl 0.2 mg 05/16/25 10:00 Clonidine Hcl 0.2 Mg Patch TD Fr@1000 [facility] Divalproex Sodium 125 mg 05/12/25 22:00 05/15/25 21:52 Divalproex Sodium 125 Mg Tablet GT 125 mg BID LEON Administration Enteral Nutritional Formula 300 ml 05/13/25 14:00 05/16/25 05:44 Jevity 1.5. 1,000 Ml Bottle GT 300 ml 5X/DAY LEON Administration Guaifenesin 10 ml 05/12/25 20:12 05/13/25 17:13 Guaifenesin 10 Ml Udc (200mg/10ml) PO 10 ml Q4H PRN Administration congestion/COUGH Hydralazine HCl 50 mg 05/12/25 20:12 05/16/25 05:44 Hydralazine 50 Mg Tablet GT 50 mg TID LEON Administration Protocol Hydralazine HCl 10 mg 05/12/25 20:12 Hydralazine 20 Mg/Ml Vial IV Q4H PRN PRN SBP > 160 Protocol Piperacillin Sod/Tazobactam 50 mls @ 12.5 mls/hr 05/13/25 06:00 05/16/25 09:20 Sod 3.375 gm/ Sodium Chloride IV 0 mls/hr Q8 LEON Infusion Vancomycin IV-PHARMACY TO DOSE 500 mls @ 250 mls/hr 05/12/25 20:12 1 each/ Sodium Chloride IV X1 PRN Rx to Dose Protocol Sodium Chloride 250 mls @ 15 mls/hr 05/12/25 20:14 05/16/25 06:07 IV 0 mls/hr .[id number] PRN Infusion Saline Flush Sodium Chloride 250 mls @ 15 mls/hr 05/12/25 20:14 IV .[id number] PRN Additional IVPB Infusion Pantoprazole Sodium 40 mg/ 100 mls @ 300 mls/hr 05/14/25 22:00 05/15/25 21:28 Sodium Chloride IV Infused Q12 LEON Infusion Vancomycin HCl 500 mg/ Sodium 110 mls @ 100 mls/hr 05/16/25 06:30 05/16/25 07:40 Chloride IV Infused Q12H LEON Infusion Lactated Ringer's 1,000 mls @ 15 mls/hr 05/16/25 09:30 IV .Q48H LEON Lansoprazole 30 mg 05/12/25 22:00 05/14/25 09:14 Lansoprazole 15 Mg Capsule. GT 30 mg On Hold: 05/14/25 15:03 BID LEON Administration Loperamide HCl 2 mg 05/15/25 16:30 05/16/25 05:45 Loperamide (Oral Liquid) 1 Mg/7.5 Ml Ml GT 2 mg Q2H PRN Administration DIARRHEA/LOOSE STOOLS Losartan Potassium 100 mg 05/13/25 10:00 05/15/25 09:16 Losartan Potassium 100 Mg Tablet GT 100 mg DAILY LEON Administration Protocol Magnesium Hydroxide 30 ml 05/13/25 10:00 05/15/25 09:17 Magnesium Hydroxide 30 Ml Udc GT Not Given DAILY LEON Melatonin 3 mg 05/12/25 20:12 05/14/25 23:01 Melatonin 3 Mg Tablet GT 3 mg QHS PRN PRN Administration INSOMNIA Methylprednisolone Sodium Succinate 40 mg 05/12/25 22:00 05/16/25 05:45 Methylprednisolone Sod Succ 40 Mg/Ml Vial IV 40 mg Q8 LEON Administration Metoprolol Tartrate 50 mg 05/12/25 22:00 05/15/25 21:50 Metoprolol Tartrate 50 Mg Tablet GT 50 mg BID LEON Administration Protocol Mirtazapine 15 mg 05/12/25 22:00 05/15/25 21:51 Mirtazapine 15 Mg Tablet GT 15 mg QHS LEON Administration Ondansetron HCl 4 mg 05/12/25 20:12 Ondansetron 4 Mg/2 Ml Vial IV Q8H PRN PRN NAUSEA/VOMITING Sertraline HCl 100 mg 05/13/25 10:00 05/15/25 09:16 Sertraline 100 Mg Tablet GT 100 mg DAILY LEON Administration Sodium Chloride 10 - 40 ml 05/12/25 20:14 05/14/25 05:11 0.9% Saline Lock 10 Ml Syringe IV 10 ml UD PRN Administration SALINE FLUSH Tamsulosin HCl 0.4 mg 05/12/25 22:00 05/15/25 21:50 Tamsulosin Hcl 0.4 Mg Capsule PO 0.4 mg QHS LEON Administration Thiamine HCl 100 mg 05/13/25 08:00 05/15/25 09:16 Thiamine Hydrochloride 100 Mg Tablet GT 100 mg BREAKFAST LEON Administration Vancomycin Protocol 1 lab 05/17/25 05:00 Vancomycin Trough/Random Due MC 05/17/25 07:00 DAILY LEON PFSH Medical History COPD with exacerbation Carotid stenosis, bilateral Presence of externally removable percutaneous endoscopic gastrostomy (PEG) tube Inability to walk CVA (cerebral vascular accident) Aphasia Debility COPD (chronic obstructive pulmonary disease) Current use of nursing home anticoagulation History of atrial fibrillation Obstructive sleep apnea Seizure disorder Lupus anticoagulant disorder Bronchospasm, acute Aspiration into respiratory tract Acute and chronic respiratory failure with hypoxia Hypertension Dyspnea Acute CVA (cerebrovascular accident) Hypertension Weakness Failure to thrive Compression fx, lumbar spine Hypertension Falls Hypertension Closed fracture of right superior pubic ramus Multiple falls Compression fracture of thoracic vertebra Iron deficiency anemia Chronic respiratory failure with hypoxia Osteoporosis Lumbar compression fracture Compression fracture Hyperlipidemia Asthma Peripheral arterial occlusive disease Chronic obstructive pulmonary disease Coronary artery disease BPH (benign prostatic hyperplasia) Ulcerative colitis Peripheral vascular disease Anxiety COPD (chronic obstructive pulmonary disease) with emphysema Closed fracture of right inferior pubic ramus Acute UTI COPD (chronic obstructive pulmonary disease) UTI (urinary tract infection) Depression Diabetes Kidney stones Chronic pain Pancreatitis On home oxygen therapy Irregular heart beat Atrial fibrillation Stroke/cerebrovascular accident Smoker Falls frequently Seizures Sleep apnea COPD (chronic obstructive pulmonary disease) Asthma High cholesterol Tobacco abuse Home Medications Medication Instructions Recorded Last Taken Type acetaminophen 325 mg tablet 650 mg (2 x 325 mg) feedin g tube 12/24/24 Unknown Rx Q6H PRN PRN Pain 1-10 Or Fever>100.7 #0 tabs amlodipine 10 mg tablet 10 mg G-tube DAILY.RT bp #0 tabs 12/24/24 Unknown Rx carbamazepine 100 mg/5 mL oral 200 mg (10 mL) G-tube 4 X/DAY #0 mL 12/24/24 Unknown Rx suspension cholecalciferol (vitamin D3) 50 50 mcg feeding tube DA KATHERINE 12/24/24 01/05/25 Rx mcg (2,000 unit) tablet SUPPLEMENT 30 days #30 tabs clonidine 0.2 mg/24 hr weekly 0.2 mg transdermal Q7D b lood 12/24/24 05/03/25 Rx transdermal patch pressure #0 ea ergocalciferol (vitamin D2) 1,250 1,250 mcg feeding tu be Q7D 12/24/24 12/13/24 08:58 Rx mcg (50,000 unit) capsule (Vitamin SUPPLEMENT #0 caps D2) ipratropium 0.5 mg-albuterol 3 mg 3 ml inhalation .q6h wa wheezes #0 12/24/24 Unknown Rx (2.5 mg base)/3 mL nebulization mL soln losartan 100 mg tablet 100 mg feeding tube DAILY Bl ood 12/24/24 12/13/24 08:58 Rx pressure 30 days #30 tabs mirtazapine 15 mg tablet 15 mg feeding tube QHS anti 12/24/24 12/12/24 20:59 Rx depressant 30 days #30 tabs sertraline 100 mg tablet 100 mg feeding tube DAILY Unknown Rx DEPRESSION 30 days #30 tabs thiamine HCl (vitamin B1) 100 mg 100 mg G-tube BREAKFA ST supplement 12/24/24 Unknown Rx tablet #0 tabs hydralazine 25 mg tablet 50 mg G-tube 3XD blood press ure 01/03/25 Unknown History atorvastatin 40 mg tablet 40 mg G-tube QHS hld #0 tabs 01/08/25 Unknown Rx lansoprazole 30 mg capsule,delayed 30 mg feeding tube BID gerd #1 cap 01/08/25 Unknown Rx release (Prevacid) apixaban 5 mg tablet (Eliquis) 2.5 mg G-tube BID blood thinner 05/03/25 Unknown History albuterol sulfate 2.5 mg/3 mL 2.5 mg (3 mL) inhalation Q2H PRN 05/08/25 Unknown Rx (0.083 %) solution for nebulization PRN Dyspnea, wheez ing #0 mL menthol 0.44 %-zinc oxide 20.6 % 1 applic topical 4X/D AY skin 05/08/25 Unknown Rx topical ointment (Calmoseptine) irritation #0 grams prednisone 20 mg tablet 20 mg PO DAILY steroid #10 t abs 05/08/25 Unknown Rx bisacodyl 10 mg rectal suppository 10 mg TN PRN bowel movement 05/12/25 Unknown History divalproex 125 mg tablet,delayed 125 mg PO BID seizure 05/12/25 Unknown History release (Depakote) glucagon 1 mg solution for 1 mg IM Q20M PRN hypoglycem ia 05/12/25 Unknown History injection (Glucagon Emergency Kit) guaifenesin 100 mg/5 mL oral 200 mg PO Q4H PRN congest ion/COUGH 05/12/25 Unknown History liquid (Adult [facility]) magnesium hydroxide 400 mg/5 mL 30 ml PO DAILY bowel m ovement 05/12/25 Unknown History oral suspension (Gentle Laxative (magnesium hydroxide)) metoprolol tartrate 50 mg tablet 50 mg feeding tube BI D heart 05/12/25 Unknown History tamsulosin 0.4 mg capsule 0.4 mg PO QHS bph 05/12/25 U nknown History Allergy/AdvReac Type Severity Reaction Status Date / Time No Known Allergies Allergy Verified 05/12/25 16:21 Family History Mother Heart disease CVA (cerebral vascular accident) Hypertension Father Heart disease CVA (cerebral vascular accident) Hypertension Surgical History S/P arterial stent History of appendectomy Social History household members: caregiver housing: [facility] 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 Smoking Status: Light Smoker (<10/day) alcohol intake: former details: Former alcoholic quit several years ago substance use type: does not use caffeine: Yes Type: coffee Number of servings: 3 Review of Systems (Anesthesia) ROS Narrative System reviewed and no additional complaints, except as documented.
--- NOTE | 2025-05-16 09:47 | PN.HOSP_ITS ---
Reason for Visit Chief Complaint: Wheezing, rhonchi, hypoxia at SNF. Subjective Subjective Resting comfortably in bed, to have upper endoscopy today Objective Data Objective Data Vital Signs: Vital Signs Temp Pulse Resp BP Pulse Ox O2 Del Method O2 Flow Rate 97.8 F 78 19 H 128/64 H 94 Nasal Cannula 2 05/16/25 15:03 05/16/25 15:39 05/16/25 15:39 05/16/25 15:03 05/16/25 15:35 05/16/25 15:35 05/16/25 15:35 Oxygen Flow Rate (L/min) 2 Oxygen Delivery Method Nasal Cannula Weight: 60.6 kg Body Mass Index (BMI) 18.1 Intake & Output: Intake and Output for Last 24 Hours 05/14/25 05/15/25 05/16/25 23:59 23:59 23:59 Intake Total 2565 / 3065 3380 / 3380 1416.33 / 1416.33 Output Total 500 / 500 Balance 2065 / 2565 3380 / 3380 1416.33 / 1416.33 Medical Nutrition Assessment Dietitian: Malnutrition Criteria Met Start: 05/13/25 13:28 Freq: Status: Active Protocol: Document 05/13/25 13:28 LO (Rec: 05/13/25 13:28 [id number]) Nutrition Malnutrition Evidence of Yes Malnutrition Exists Malnutrition (severe Chronic ): Evidenced By Weight Loss (Severe),Physical Changes (Severe) Clinical Problem Chronic Disease or Condition Related Malnutrition Etiology severe related to inadequate energy intake, increased energy expenditure and swallowing difficulty Signs/Symptoms as evidence by 6.6kg (10%) weight loss in 4 months and severe fat/muscle loss to orbital, temporal, and clavicle regions; BMI 17.4kg/m2 Status Active Problem Recommendation Dietitian Will continue home regimen for enteral nutrition Recommendations/ support as ordered. Changes Pt is NPO/dysphagia and enteral nutrition support to meet 100% of estimated nutrition needs. Continue Pivot 1.5 via PEG tube: 300mL bolus 5x daily with 100mL water flush before and after each bolus to provid 2250kcal, 140.7 grams protein, and 2125mL fluid Trend weight; enteral nutrition as ordered promotes weight gain. Lab / Micro Data 05/16/25 05:25 05/16/25 05:25 Labs: Laboratory Results - last 24 hr 05/15/25 23:24: Vancomycin Trough 20.5 H 05/16/25 05:25: WBC 13.8 H, RBC 3.88 L, Hgb 9.7 L, Hct 32.5 L, MCV 83.8, MCH 25.0 L, MCHC 29.8 L, RDW Std Deviation 53.1 H, RDW Coeff of Aly 17.5 H, Plt Count 612 H, MPV 9.5, Immature Gran % (Auto) 1.500 H, Neut % (Auto) 88.6 H, L ymph % (Auto) 6.8 L, Benton % (Auto) 2.7, Eos % (Auto) 0.2, Baso % (Auto) 0.2, A bsolute Neuts (auto) 12.2 H, Absolute Lymphs (auto) 0.94, Nucleated RBC % 0.2, Sodium 139, Potassium 4.6, Chloride 101, Carbon Dioxide 26.6, Anion Gap 11, BUN 21 H, Creatinine 0.94, Estim Creat Clear Calc 58.20, Est GFR (MDRD) Non-Af 85, B UN/Creatinine Ratio 22.6 H, Glucose 82, Calcium 8.8, Random Vancomycin 17.5 H Micro: Microbiology 05/12/25 16:35 Urine Catheter - P[place] Urine Culture - Final ESBL Escherichia coli 05/12/25 18:01 Blood Culture (Wb) - Anticubital Right Blood Culture - Preliminary No growth in 48 hours. 05/12/25 16:25 Blood Culture (Wb) - Right Forearm Blood Culture - Preliminary No growth in 48 hours. 05/14/25 15:00 Stool Clostridioides difficile (PCR) - Final 05/14/25 07:45 Stool Stool Occult Blood (LACI) - Final 05/12/25 20:03 Mucosa - Nasopharyngeal Respiratory Panel (PCR) - Final 05/12/25 16:55 Urine, Clean Catch Legionella Antigen - Final 05/12/25 16:55 Urine, Clean Catch Streptococcus pneumoniae Antigen (M - Final 05/12/25 16:35 Mucosa - Nose SARS-CoV-2, Influenza & RSV (PCR) - Final Physical Exam Narrative General:no apparent distress HEENT: Atraumatic, normocephalic Eyes: extraocular movements grossly intact Neck: Supple Respiratory: normal respiratory effort, no overt wheezes or rhonchi Cardiovascular: no edema appreciated GI: nondistended Extremities: Laying curled up in bed Neuro: No overt focal neurological deficits Psych: Resting comfortably Assessment & Plan Assessment/Plan (1) Pneumonia: (2) Acute on chronic hypoxic respiratory failure: PLAN: Plan #Acute on chronic hypoxic respiratory failure due to right basilar pneumonia with concern for aspiration * Was recently admitted in the hospital and discharged chest on 05/08/2025. Was admitted previously and managed for acute on chronic hypoxia due to COPD exacerbation. He now comes back with hypoxia, saturating at 82 to 85% on 2 L of oxygen in the long term. * Chest x-ray showed right basilar infiltrate. He is being managed for acute on chronic hypoxic respiratory failure concerning for possible aspiration pneumonia * Currently on IV vancomycin and Zosyn. Respiratory panel was negative. * Breathing treatments with bronchodilators. Titrate oxygen to maintain saturation above 90%. * Urine cultures growing ESBL E. coli which is sensitive to Zosyn so we will continue. -05/15: Continue antibiotics, EGD tomorrow, continue respiratory support, patient keeps taking off oxygen but decreased to 85% on room air, continue to encourage nasal cannula -05/16:Resp status remains stable if pt wears 2L O2, continue present management, vanc stopped, continued zosyn #History of CVA with bilateral carotid stenosis: on eliquis and statin. has resultant dysphagia and has a PEG tube in situ for nutrition. -05/15: Continue supportive care -05/16: Plan will be for patient to go back to [facility], likely over the weekend #Hypertension: on hydralazine, losartan, metoprolol, amlodipine and clonidine. IV hydralazine prn -05/15: BP 134/67 most recently, continue current management -05/16: BP 128/64, stable, will continue present management as well #Acute on chronic anemia * Hemoglobin is up to 9.2 today from 7.7 yesterday. He is on Eliquis. He does have chronic anemia. * iron profile showed iron deficiency anemia which is chronic. Stool for occult blood pending. * Has not had any hematochezia or hematemesis. -05/15: Hemoglobin 9.9 today, plan is for EGD, patient's anticoagulation currently held -05/16: Patient underwent upper endoscopy today, no abnormalities found, was advised to resume anticoagulation and if further drops patient would need a colonoscopy. If patient doing well tomorrow will likely be able to DC back to [facility] [place] and advise repeat H&H #UTI secondary to ESBL E. coli * Urine has 4+ bacteria but this is chronic. * urine cultures however growing ESBL E coli. * on IV zosyn, which should cover this also. -05/15: Continue present management -05/16: Remains on vancomycin Chronic medical problems and/or problems not being actively addressed during today's encounter: #Paroxysmal afib: on metoprolol and eliquis. #Anxiety and depression: on sertraline and mirtazapine #BPH with obstructive pathology: stable. on flomax #GERD: on PPI #History of seizure disorder: on carbamazepine #PJ: not compliant with CPAP. titrate oxygen as needed to maintain sats >90% #Dysphagia: has PEG tube in situ. #DVT prophylaxis: on eliquis Code status: full code Time spent in the patient's overall evaluation,decision-making process, review of diagnostic data, adjustment of management, discussion with other providers, nursing nursing and ancillary staff involved in patient's care documentation, 36 Minutes Charges/Coding Visit Charges Inpatient E&M: 76573 Subs Hosp L2
--- NOTE | 2025-05-16 10:46 | PN_ITS ---
Progress Note Patient has been n.p.o. for upper endoscopy. Physical Exam Const alert, oriented x3, no apparent distress and healthy appearing General Appearance: cooperative GI normal to inspection, nondistended, normoactive bowel sounds, soft to palpation, non-tender and non-distended Percussion: normal to percussion Rectal Exam: deferred Assessment & Plan Assessment/Plan (1) Acute on chronic hypoxic respiratory failure: (2) Aphasia: (3) CVA (cerebral vascular accident): QUALIFIERS: CVA mechanism: unspecified Qualified Code(s): I63.9 - Cerebral infarction, unspecified (4) Anemia: PLAN: 74 y/o M w/ extensive PMHx presenting with acute on chronic hypoxia and a decrease in hemoglobin, currently on Coumadin therapy. * The primary concern is the potential for an active GI bleed precipitated or worsened by Coumadin, given the drop in Hb. The history of chronic anemia/Fe deficiency anemia means the source needs identifying. * The patient's complex respiratory status (COPD/Asthma w/ Chronic Hypoxic Respiratory Failure, recent exacerbation, on prednisone) makes him high-risk for any invasive procedure, including endoscopy. * The current hypoxia needs immediate stabilization. Plan * GI Bleed Workup: * I do not think is Coumadin needs to be reversed at this time. He is a very high stroke risk. Recommend Protonix 40 mg IV every 12 hours. * Endoscopy Decision: * The decision for an urgent EGD/colonoscopy will depend heavily on the patient's hemodynamic stability, the severity/rate of Hb drop, and the ability to safely correct coagulopathy. * I discussed the risks of procedural sedation/endoscopy in a patient's POA with severe respiratory compromise, dysphagia, CVA history, and PEG tube. The patient's POA underlying respiratory status is a major consideration. Visit Charges Inpatient E&M: 92575 [facility] Hosp L3
[2025-05-16] MEDS: Lidocaine 1% (5 ml sdv) 5 ML Vial IV (10:55)
--- NOTE | 2025-05-16 11:07 | PCM.POST.ANE ---
Anesthesia: Postop Eval I Current Vital Signs Temperature: 98 F Pulse Rate: 63 Blood Pressure: 151/56 Respiratory Rate: 16 Pulse Ox: 96 Oxygen Delivery Method: Room Air Assessment Airway patent: Yes Spontaneous unlabored respirations: Yes Mental status: Uncooperative nausea: No Vomiting: No Anesthesia Complication: No Fluid Hydration Crystalloid volume administer (ml): 50 Total IV fluid infused: 50 Progress Note Anesthesia document: Postop Eval 1 completed: Yes
[2025-05-16] MEDS: Pantoprazole Sodium 40 MG in 0.9% Normal Saline (100mL MB+) 100 ML 300 MG IV ×2 (12:05→22:51)
[2025-05-16] MEDS: carBAMazepine 200 MG/10 ML UDC (WCH) GT ×4 (12:11→21:08)
[2025-05-16] MEDS: Thiamine Hydrochloride 100 MG Tablet GT (12:13)
--- NOTE | 2025-05-16 12:17 | POSTOPAN2_ITS ---
Anesthesia Postop Eval I Sum Postop Eval Completion status Anesthesia document: Postop Eval 1 completed: Yes Anesthesia Postop Eval I Summary Anesthesia Postop Eval I Summary: Anesthesia Postop Eval I: Assessment Summary Airway patent Yes 05/16/25 11:08 PARTY SUPPLY SPECIALIST.ALBARO Spontaneous unlabored Yes 05/16/25 11:08 PARTY SUPPLY SPECIALIST.ALBARO respirations Mental status Uncooperative 05/16/25 11:08 PARTY SUPPLY SPECIALIST.OT nausea No 05/16/25 11:08 PARTY SUPPLY SPECIALIST.OT Vomiting No 05/16/25 11:08 PARTY SUPPLY SPECIALIST.ALBARO Anesthesia Postop Eval I: Fluid Summary Crystalloid volume administer 50 05/16/25 11:08 PARTY SUPPLY SPECIALIST.MDOT (ml) Colloids volume administered ( ml) Blood Product volume administered (ml) Total IV fluid infused 50 05/16/25 11:08 PARTY SUPPLY SPECIALIST.ALBARO Anesthesia Postop Eval I: Summary Notes Anesthesia Complication No 05/16/25 11:08 PARTY SUPPLY SPECIALIST.ALBARO Anesthesia Complication Comment: Post-operative progress note Anesthesia: Postop Eval II Evaluation Mental status: Awake Pain Level: 0 nausea: No Vomiting: No
--- NOTE | 2025-05-16 12:17 | PCM.POSTANE2 ---
Anesthesia Postop Eval I Sum Postop Eval Completion status Anesthesia document: Postop Eval 1 completed: Yes Anesthesia Postop Eval I Summary Anesthesia Postop Eval I Summary: Anesthesia Postop Eval I: Assessment Summary Airway patent Yes 05/16/25 11:08 PAEDIATRIC PHYSIOTHERAPIST.ALBARO Spontaneous unlabored Yes 05/16/25 11:08 PAEDIATRIC PHYSIOTHERAPIST.ALBARO respirations Mental status Uncooperative 05/16/25 11:08 PAEDIATRIC PHYSIOTHERAPIST.OT nausea No 05/16/25 11:08 PAEDIATRIC PHYSIOTHERAPIST.OT Vomiting No 05/16/25 11:08 PAEDIATRIC PHYSIOTHERAPIST.ALBARO Anesthesia Postop Eval I: Fluid Summary Crystalloid volume administer 50 05/16/25 11:08 PAEDIATRIC PHYSIOTHERAPIST.MDOT (ml) Colloids volume administered ( ml) Blood Product volume administered (ml) Total IV fluid infused 50 05/16/25 11:08 PAEDIATRIC PHYSIOTHERAPIST.ALBARO Anesthesia Postop Eval I: Summary Notes Anesthesia Complication No 05/16/25 11:08 PAEDIATRIC PHYSIOTHERAPIST.ALBARO Anesthesia Complication Comment: Post-operative progress note Anesthesia: Postop Eval II Evaluation Mental status: Awake Pain Level: 0 nausea: No Vomiting: No
--- NOTE | 2025-05-16 12:52 | OP.EGD_ITS ---
Patient Name: Miles Sifuentes Procedure Date: 05/16/2025 10:47 AM Date of : 1950 Age: 74 Procedure: Upper GI endoscopy Indications: Iron deficiency anemia secondary to chronic blood loss, Iron deficiency anemia Providers: Paulino Henderson DO Medicines: Monitored Anesthesia Care Patient Profile: This is a 74 year old male. Refer to note in patient chart for documentation of history and physical. Patient has symptoms. His most recent EGD for PEG placement. Complications: No immediate complications. Procedure: Pre-Anesthesia Assessment: - Prior to the procedure, a History and Physical was performed, and patient medications and allergies were reviewed. The patient is competent. The risks and benefits of the procedure and the sedation options and risks were discussed with the patient. All questions were answered and informed consent was obtained. Patient identification and proposed procedure were verified by the physician in the pre-procedure area. Mental Status Examination: alert and oriented. Airway Examination: normal oropharyngeal airway and neck mobility. Respiratory Examination: clear to auscultation. CV Examination: normal. Prophylactic Antibiotics: The patient does not require prophylactic antibiotics. Prior Anticoagulants: The patient has taken no anticoagulant or antiplatelet agents except for NSAID medication. ASA Grade Assessment: II - A patient with mild systemic disease. After reviewing the risks and benefits, the patient was deemed in satisfactory condition to undergo the procedure. The anesthesia plan was to use monitored anesthesia care (MAC). Immediately prior to administration of medications, the patient was re-assessed for adequacy to receive sedatives. The heart rate, respiratory rate, oxygen saturations, blood pressure, adequacy of pulmonary ventilation, and response to care were monitored throughout the procedure. The physical status of the patient was re-assessed after the procedure. After obtaining informed consent, the endoscope was passed under direct vision. Throughout the procedure, the patient's blood pressure, pulse, and oxygen saturations were monitored continuously. The Endoscope was introduced through the mouth, and advanced to the third part of the duodenum. Small bowel enteroscopy was deemed necessary. The upper GI endoscopy was accomplished without difficulty. The patient tolerated the procedure well. Scope In: 11:03:07 AM Scope Out: 11:05:05 AM Total Procedure Duration Time 0 hours 1 minute 58 seconds Findings: No gross lesions were noted in the entire esophagus. A hiatal hernia was present. There was evidence of an intact gastrostomy with a patent G-tube present in the gastric body. This was characterized by healthy appearing mucosa. No gross lesions were noted in the entire examined duodenum. Impression: - No gross lesions in the entire esophagus. - Hiatal hernia. - Intact gastrostomy with a patent G-tube present characterized by healthy appearing mucosa. - No gross lesions in the entire examined duodenum. - No specimens collected. Recommendation: - Return patient to hospital new for ongoing care. - Resume previous diet today. Okay to resume tube feedings. - Resume Coumadin (warfarin) at prior dose today. - If hemoglobin does not stabilize then he may need a colonoscopy. Procedure Code(s): --- Professional --- 90112, Small intestinal endoscopy, enteroscopy beyond second portion of duodenum, not including ileum; diagnostic, including collection of specimen(s) by brushing or washing, when performed (separate procedure) CPT copyright 2021 [employer]. All rights reserved. The codes documented in this report are preliminary and upon stretching machine operator review may be revised to meet current compliance requirements. Paulino Henderson DO 05/16/2025 12:51:43 PM This report has been signed electronically. Number of Addenda: 0 Note Initiated On: 05/16/2025 10:47 AM
--- NOTE | 2025-05-16 12:52 | OP.PROVAT_ITS ---
05/16/2025 Lorraine Mena MD [address] [place] [address] [place] [address] Re : Upper GI endoscopy procedure for Miles Sifuentes Dear Dr. Mena This procedure was performed on Friday, May 16, 2025. My impressions and recommendations are as follows: Impressions : - No gross lesions in the entire esophagus. - Hiatal hernia. - Intact gastrostomy with a patent G-tube present characterized by healthy appearing mucosa. - No gross lesions in the entire examined duodenum. - No specimens collected. Recommendations : - Return patient to hospital new for ongoing care. - Resume previous diet today. Okay to resume tube feedings. - Resume Coumadin (warfarin) at prior dose today. - If hemoglobin does not stabilize then he may need a colonoscopy. My findings are described in the full procedure note, which is enclosed. If I can be of further assistance, please feel free to contact me at . Sincerely, Paulino Henderson, 05/16/2025 12:51:43 PM This report has been signed electronically.
[2025-05-16] MEDS: Divalproex Sodium 125 MG Tablet GT ×2 (14:34→21:21)
--- NOTE | 2025-05-16 14:59 | CASEMGMT ---
Discharge Planning Updates sent via [facility] to [facility] with note that pt will likely return over the wknd. Jacquie Michaud DC Planning Asst.
--- NOTE | 2025-05-16 15:04 | NURSING ---
Pt had SPO2 in 70s-80s when he pulled off NC. O2 had been increased to 5L prior to leaving for EGD. At this time went in to give meds and NC laying in bed next to pt. SPO2 checked and was 91%. Replaced NC at 2L. Continue to monitor
--- NOTE | 2025-05-16 15:39 | CPS ---
did treatments with blo by.
--- NOTE | 2025-05-16 19:55 | CPS ---
Pt refused to do vest therapy.
[2025-05-16] MEDS: APIXABAN 2.5 MG TABLET (WCH) GT (21:08)
[2025-05-16] MEDS: 0.9% Saline Lock 10 ML Syringe IV (21:09)
[2025-05-16] MEDS: Acetaminophen 650 MG/20 ML UDC GT (21:27)
[2025-05-17] MEDS: Piperacil/Tazobactam 3.375 GM in 0.9% Normal Saline (50mL MB+) 50 ML IV (05:02)
[2025-05-17 05:31] LABS: Hematocrit 30.2 % (40-54); Hemoglobin 9.1 g/dL (13.0-16.5); Immature Granulocytes Count 0.140 X10^3/uL (0.0-0.0); Mean Corp Hgb Conc 30.1 g/dL (32-36); Mean Corpuscular Volume 83.7 fL (80-94); Mean Platelet Vol. 9.9 fl (6.2-12.0); NRBC Flagged by Analyzer 0.2 % (0-5); Platelet Count 560 K/mm3 (150-450); RBC Distribution Width CV 17.9 % (11.6-14.6); RBC Distribution Width SD 54.6 fl (35.1-43.9); Red Blood Count 3.61 M/mm3 (4.6-6.2); White Blood Count 13.1 K/mm3 (4.4-11.0)
[2025-05-17 05:53] LABS: Anion Gap 10 (5-15); BUN 25 mg/dL (4-19); BUN/Creat Ratio 23.5 RATIO (10-20); Calcium,Total 8.9 mg/dL (7.6-11.0); Carbon Dioxide 26.6 mmol/L (21.0-32.0); Chloride 102 mmol/L (98-108); Estimated Creatinine Clearance 52.10 ml/min (50-250); Glucose 100 mg/dL (70-99); Potassium 5.2 mmol/L (3.3-5.1)
[2025-05-17 06:00] VITALS: BMI 18.2
[2025-05-17 06:41] VITALS: BP 165/74; PULSE 69
[2025-05-17] MEDS: Jevity 1.5. 1,000 ML Bottle 300 ML GT ×3 (06:44→14:51)
[2025-05-17 07:15] VITALS: O2SAT 89
--- NOTE | 2025-05-17 07:15 | CPS ---
Pt refusing aerosol and Vest therapy, won't keep O2 on.
[2025-05-17 09:47] VITALS: BP 152/76; PULSE 75; RESP 16; TEMP 37.1; O2SAT 90
[2025-05-17] MEDS: carBAMazepine 200 MG/10 ML UDC (WCH) GT ×2 (10:26→14:48)
[2025-05-17 10:27] VITALS: PULSE 75
[2025-05-17] MEDS: Thiamine Hydrochloride 100 MG Tablet GT (10:27)
[2025-05-17] MEDS: Divalproex Sodium 125 MG Tablet GT (10:27)
[2025-05-17] MEDS: Pantoprazole Sodium 40 MG in 0.9% Normal Saline (100mL MB+) 100 ML 300 MG IV (10:31)
[2025-05-17] MEDS: APIXABAN 2.5 MG TABLET (WCH) GT (10:32)
[2025-05-17 14:51] VITALS: PULSE 75
--- NOTE | 2025-05-17 14:51 | PCM.TXEXTCAR ---
Diet Diet Order/Speech Therapy: INPATIENT Hospital Diet / Speech Therapy Order(s) 05/12/25 20:12 Diet: Nothing Per Oral Tube Feed: Continue tube feeds via PEG tube Routine Orders/Code Status Suppository Type: Dulcolax 10mg Suppository Frequency: Daily PRN Routine Lab Work: CBC (in 3 days to f/u blood counts) and BMP (in 3 days for electrolyte monitoring) Code Status: Full Code DC O2, CPAP, BIPAP needs Home O2 Discharge instructions: Yes Type of respiratory needs?: Oxygen Oxygen frequency: Continuous Continuous oxygen liters per minute: 2 Wound(s) left forearm: Wound Type: Skin Tear left inner wrist: Wound Type: Skin Tear Therapies Physical Therapy: Eval and Treat Occupational Therapy: Eval and Treat Problem/Diagnosis (1) Pneumonia: Status: Acute Code(s): J18.9 - Pneumonia, unspecified organism (2) Acute on chronic hypoxic respiratory failure: Status: Chronic Code(s): J96.21 - Acute and chronic respiratory failure with hypoxia (3) Urinary tract infection due to extended-spectrum beta lactamase (ESBL) producing Escherichia coli: Status: Acute Code(s): N39.0 - Urinary tract infection, site not specified; B96.29 - Other Escherichia coli [E. coli] as the cause of diseases classified elsewhere; Z16.12 - Extended spectrum beta lactamase (ESBL) resistance Plan #Acute on chronic hypoxic respiratory failure due to right basilar pneumonia with concern for aspiration #History of CVA with bilateral carotid stenosis #PEG tube #Hypertension #Acute on chronic anemia #UTI secondary to ESBL E. coli #Paroxysmal afib: on metoprolol and eliquis. #Anxiety and depression #BPH with obstructive pathology #GERD #History of seizure disorder #PJ #Dysphagia 74-year-old male history of PAD with PCI, paroxysmal A-fib, CVA with significant residual deficits with PEG tube in place, seizure disorder, COPD with chronic hypoxic respiratory failure on 2 L nasal cannula, GERD, BPH who presented [facility] ED 05/12/2025 from alf facility for worsening hypoxia and wheezing. He had been admitted to our facility and subsequently discharged 05/08 following evaluation and treatment for acute on chronic hypoxic respiratory failure secondary to COPD exacerbation. At the detention he was found to be 82 to 85% on his normal 2 L prompting EMS. Patient had chest x-ray with new right lower lobe infiltrate and a UA with 4+ bacteria. He was started on antibiotics as well as nebs and steroids and had improvement in respiratory status though still requiring 2 L to remain sats but per report this is what he was on previously. He did have what seemed to be acute on chronic anemia which stabilized but given his need to be on Eliquis due to CVA he underwent upper endoscopy. Upper endoscopy 05/16/2025 with intact gastrostomy with patent G-tube with healthy appearing mucosa and was otherwise normal. It was recommended to resume his home anticoagulation and in the future further drops patient will need colonoscopy. Patient's hemoglobin variable, no overt bleeding appreciated, hemoglobin this a.m. 9.1. He completed 5 days of Zosyn for his urinary tract infection and will be discharged on an additional 2 days of Levaquin to complete 7 for his pneumonia. No new or acute complaints on day of discharge. Discharge instructions as follows: - You will need a CBC to check your hemoglobin in 3 days, if there are further drops you will need to follow-up with GI for consideration for colonoscopy - You will need 2 more days of Levaquin to complete a course for pneumonia -You will be discharged on a prednisone taper: -60 mg daily x3 days -50mg daily x3 days -40mg daily x3 days -30mg daily x3 days -20mg daily x3 days -10mg daily x3 days Allergies/Procedures Done in Hospital Allergies No Known Allergies Allergy (Verified 05/12/25 16:21) Procedures: EGD (EGD 05/16/25 no acute abnormalities) Type of Care/Length of Stay Estimated LOS: Convalescent Care Less Than 30 days Type of Care Needed: Skilled Rehab Potential: Poor Prognosis: Poor Additional Orders/Day of Discharge Day of Discharge: 05/17/25 Dietary and Speech Recommendations Dietitian Recommendations/Changes: Will continue home regimen for enteral nutrition support as ordered. Pt is NPO/dysphagia and enteral nutrition support to meet 100% of estimated nutrition needs. Continue Pivot 1.5 via PEG tube: 300mL bolus 5x daily with 100mL water flush before and after each bolus to provid 2250kcal, 140.7 grams protein, and 2125mL fluid Trend weight; enteral nutrition as ordered promotes weight gain. Discharge Plan Admission Admit Date/Time: 05/12/25 18:52 Primary Reason for Your Visit: Shortness of breath and wheezing Attending Provider: Celia Toribio Primary Care Provider: Lorraine Mena Consulting Providers: Shilpa Contreras; Brody Maynard; Paulino Henderson; Etta John; Emilie Shields; Tigist Perez; Kathi Ibrahim Instructions Patient Instructions: ED Fall Prevention Additional Instructions / Restrictions: DISCHARGE INSTRUCTIONS PLEASE READ *Please take this with you to your next doctors appointment* - You will need a CBC to check your hemoglobin in 3 days, if there are further drops you will need to follow-up with GI for consideration for colonoscopy - You will need 2 more days of Levaquin to complete a course for pneumonia -You will be discharged on a prednisone taper: -60 mg daily x3 days -50mg daily x3 days -40mg daily x3 days -30mg daily x3 days -20mg daily x3 days -10mg daily x3 days -Please call your primary care provider's office upon discharge to schedule a hospital follow up within 1 week. -For any concerning signs or symptoms please call 911 or proceed to the nearest emergency department Discharge Orders/Prescriptions Prescriptions: New prednisone 20 mg Tablet See Taper PO BREAKFAST Qty: 32 0RF Taper: Prednisone Taper 60 mg WITH BREAKFAST for 3 Days and 0 Hour 50 mg WITH BREAKFAST for 3 Days and 0 Hour 40 mg WITH BREAKFAST for 3 Days and 0 Hour 30 mg WITH BREAKFAST for 3 Days and 0 Hour 20 mg WITH BREAKFAST for 3 Days and 0 Hour 10 mg WITH BREAKFAST for 3 Days and 0 Hour levofloxacin 750 mg tablet 750 mg PO DAILY 2 Days Qty: 2 0RF Jevity 1.5 Alex 0.06 gram-1.5 kcal/mL Liquid 300 ml G-tube 5X/DAY Qty: 0 0RF Continued acetaminophen 325 mg Tablet 650 mg feeding tube Q6H PRN PRN (Reason: Pain 1-10 Or Fever>100.7) Qty: 0 0RF ipratropium-albuterol 0.5 mg-3 mg(2.5 mg base)/3 mL Solution For Nebulization 3 ml inhalation .[id number] Qty: 0 0RF clonidine 0.2 mg/24 hr Patch Weekly 0.2 mg transdermal Q7D Qty: 0 0RF amlodipine 10 mg Tablet 10 mg G-tube DAILY.RT Qty: 0 0RF carbamazepine 100 mg/5 mL Suspension 200 mg G-tube 4X/DAY Qty: 0 0RF thiamine HCl (vitamin B1) 100 mg Tablet 100 mg G-tube BREAKFAST Qty: 0 0RF sertraline 100 mg tablet 100 mg feeding tube DAILY 30 Days Qty: 30 0RF mirtazapine 15 MG tablet 15 mg feeding tube QHS 30 Days Qty: 30 0RF ergocalciferol (vitamin D2) [Vitamin D2] 1,250 mcg (50,000 unit) Capsule 1,250 mcg feeding tube Q7D Qty: 0 0RF cholecalciferol (vitamin D3) 50 mcg (2,000 unit) tablet 50 mcg feeding tube DAILY 30 Days Qty: 30 0RF hydralazine 25 mg Tablet 50 mg G-tube 3XD Rx Instructions: Hold for SBP less than 110 atorvastatin 40 mg Tablet 40 mg G-tube QHS Qty: 0 0RF lansoprazole [Prevacid] 30 mg capsule,delayed release(DR/EC) 30 mg feeding tube BID Qty: 1 0RF Eliquis 5 mg Tablet 2.5 mg G-tube BID albuterol sulfate 2.5 mg /3 mL (0.083 %) Solution For Nebulization 2.5 mg inhalation Q2H PRN PRN (Reason: Dyspnea, wheezing) Qty: 0 0RF menthol-zinc oxide [Calmoseptine] 0.44-20.6 % Ointment 1 applic topical 4X/DAY Qty: 0 0RF Protocol: *Topical Application Instructions APPLICATION INSTRUCTIONS: apply to affected region bisacodyl 10 mg suppository 10 mg MT PRN divalproex [Depakote] 125 mg tablet,delayed release (DR/EC) 125 mg PO BID Patient Comments: VIA G-TUBE Glucagon Emergency Kit (human) 1 mg recon soln 1 mg IM Q20M PRN (Reason: hypoglycemia) Rx Instructions: until target blood sugar attained tamsulosin 0.4 mg capsule 0.4 mg PO QHS guaifenesin [Adult Wal-Tussin] 100 mg/5 mL liquid 200 mg PO Q4H PRN (Reason: congestion/COUGH) metoprolol tartrate 50 mg tablet 50 mg feeding tube BID magnesium hydroxide [Gentle Laxative (mag hydrox)] 400 mg/5 mL suspension 30 ml PO DAILY Held losartan 100 mg tablet 100 mg feeding tube DAILY 30 Days Qty: 30 0RF Hold Instructions: Resume on 05/20/25. Discontinued prednisone 20 mg tablet 20 mg PO DAILY Qty: 10 0RF Rx Instructions: 20 mg daily for 10 days then discontinue-start on 05/09/2025 Referrals / Follow Up: Lorraine Mena MD [Primary Care Provider, Internal Medicine] Disposition Disposition (needs filled in before D/C Order can be placed): Detention Facility
--- NOTE | 2025-05-17 15:01 | DS.PCM_ITS ---
Providers Date of Admission: 05/12/25 Date of Discharge: 05/17/25 Primary Care Physician: Dr. Lorraine Mena MD Consultations 05/14/25 15:03 Consult: Gastroenterology Routine Consulting Provider: [facility] Reason for Consult: anemia with positive FOBT EMERGENT Consult: No MD Notified: Yes Date Notified: 05/14/25 Time Notified: 15:04 Method of Notification: Text Reason For Visit: ACUTE ON C HRONIC HYPOXIA, PNA Diagnosis Discharge Diagnosis (1) Pneumonia: Status: Acute Code(s): J18.9 - Pneumonia, unspecified organism (2) Acute on chronic hypoxic respiratory failure: Status: Chronic Code(s): J96.21 - Acute and chronic respiratory failure with hypoxia (3) Urinary tract infection due to extended-spectrum beta lactamase (ESBL) producing Escherichia coli: Status: Acute Code(s): N39.0 - Urinary tract infection, site not specified; B96.29 - Other Escherichia coli [E. coli] as the cause of diseases classified elsewhere; Z16.12 - Extended spectrum beta lactamase (ESBL) resistance Plan #Acute on chronic hypoxic respiratory failure due to right basilar pneumonia with concern for aspiration #History of CVA with bilateral carotid stenosis #PEG tube #Hypertension #Acute on chronic anemia #UTI secondary to ESBL E. coli #Paroxysmal afib: on metoprolol and eliquis. #Anxiety and depression #BPH with obstructive pathology #GERD #History of seizure disorder #PJ #Dysphagia Medications at Discharge Home Medications acetaminophen 325 mg tablet 650 mg (2 x 325 mg) feeding tube Q6H PRN PRN Pain 1- 10 Or Fever>100.7 #0 tabs 12/24/24 amlodipine 10 mg tablet 10 mg G-tube DAILY.RT bp #0 tabs 12/24/24 carbamazepine 100 mg/5 mL oral suspension 200 mg (10 mL) G-tube 4X/DAY #0 mL 12/24/24 cholecalciferol (vitamin D3) 50 mcg (2,000 unit) tablet 50 mcg feeding tube DAILY SUPPLEMENT 30 days #30 tabs 12/24/24 clonidine 0.2 mg/24 hr weekly transdermal patch 0.2 mg transdermal Q7D blood pressure #0 ea 12/24/24 ergocalciferol (vitamin D2) 1,250 mcg (50,000 unit) capsule (Vitamin D2) 1,250 mcg feeding tube Q7D SUPPLEMENT #0 caps 12/24/24 ipratropium 0.5 mg-albuterol 3 mg (2.5 mg base)/3 mL nebulization soln 3 ml inhalation .q6hwa wheezes #0 mL 12/24/24 losartan 100 mg tablet 100 mg feeding tube DAILY Blood pressure 30 days #30 tabs 12/24/24 Held on 05/17/25. Instructions: Resume on 05/20/25. mirtazapine 15 mg tablet 15 mg feeding tube QHS anti depressant 30 days #30 tabs 12/24/24 sertraline 100 mg tablet 100 mg feeding tube DAILY DEPRESSION 30 days #30 tabs 12/24/24 thiamine HCl (vitamin B1) 100 mg tablet 100 mg G-tube BREAKFAST supplement #0 tabs 12/24/24 hydralazine 25 mg tablet 50 mg G-tube 3XD blood pressure 01/03/25 atorvastatin 40 mg tablet 40 mg G-tube QHS hld #0 tabs 01/08/25 lansoprazole 30 mg capsule,delayed release (Prevacid) 30 mg feeding tube BID gerd #1 cap 01/08/25 apixaban 5 mg tablet (Eliquis) 2.5 mg G-tube BID blood thinner 05/03/25 albuterol sulfate 2.5 mg/3 mL (0.083 %) solution for nebulization 2.5 mg (3 mL) inhalation Q2H PRN PRN Dyspnea, wheezing #0 mL 05/08/25 menthol 0.44 %-zinc oxide 20.6 % topical ointment (Calmoseptine) 1 applic topical 4X/DAY skin irritation #0 grams 05/08/25 bisacodyl 10 mg rectal suppository 10 mg HI PRN bowel movement 05/12/25 divalproex 125 mg tablet,delayed release (Depakote) 125 mg PO BID seizure 05/12/25 glucagon 1 mg solution for injection (Glucagon Emergency Kit) 1 mg IM Q20M PRN hypoglycemia 05/12/25 guaifenesin 100 mg/5 mL oral liquid (Adult Wal-Tussin) 200 mg PO Q4H PRN congestion/COUGH 05/12/25 magnesium hydroxide 400 mg/5 mL oral suspension (Gentle Laxative (magnesium hydroxide)) 30 ml PO DAILY bowel movement 05/12/25 metoprolol tartrate 50 mg tablet 50 mg feeding tube BID heart 05/12/25 tamsulosin 0.4 mg capsule 0.4 mg PO QHS bph 05/12/25 lactose-reduced food with fiber 0.06 gram-1.5 kcal/mL oral liquid (Jevity 1.5 Alex) 300 ml G-tube 5X/DAY #0 mL 05/17/25 levofloxacin 750 mg tablet 750 mg PO DAILY 2 days #2 tabs 05/17/25 prednisone 20 mg tablet See Taper PO BREAKFAST #32 tabs 05/17/25 Hospital Course Summary of Care Provided Minutes Spent on Discharge: 24 Hospital Course: 74-year-old male history of PAD with PCI, paroxysmal A-fib, CVA with significant residual deficits with PEG tube in place, seizure disorder, COPD with chronic hypoxic respiratory failure on 2 L nasal cannula, GERD, BPH who presented [facility] ED 05/12/2025 from [facility] facility for worsening hypoxia and wheezing. He had been admitted to our facility and subsequently discharged 05/08 following evaluation and treatment for acute on chronic hypoxic respiratory failure secondary to COPD exacerbation. At the residential he was found to be 82 to 85% on his normal 2 L prompting EMS. Patient had chest x-ray with new right lower lobe infiltrate and a UA with 4+ bacteria. He was started on antibiotics as well as nebs and steroids and had improvement in respiratory status though still requiring 2 L to remain sats but per report this is what he was on previously. He did have what seemed to be acute on chronic anemia which stabilized but given his need to be on Eliquis due to CVA he underwent upper endoscopy. Upper endoscopy 05/16/2025 with intact gastrostomy with patent G-tube with healthy appearing mucosa and was otherwise normal. It was recommended to resume his home anticoagulation and in the future further drops patient will need colonoscopy. Patient's hemoglobin variable, no overt bleeding appreciated, hemoglobin this a.m. 9.1. He completed 5 days of Zosyn for his urinary tract infection and will be discharged on an additional 2 days of Levaquin to complete 7 for his pneumonia. No new or acute complaints on day of discharge. Discharge instructions as follows: - You will need a CBC to check your hemoglobin in 3 days, if there are further drops you will need to follow-up with GI for consideration for colonoscopy - You will need 2 more days of Levaquin to complete a course for pneumonia -You will be discharged on a prednisone taper: -60 mg daily x3 days -50mg daily x3 days -40mg daily x3 days -30mg daily x3 days -20mg daily x3 days -10mg daily x3 days Physical Exam Narrative General:no apparent distress HEENT: Atraumatic, normocephalic Eyes: extraocular movements grossly intact Neck: Supple Respiratory: normal respiratory effort, no overt wheezes or rhonchi Cardiovascular: no edema appreciated GI: nondistended Extremities: Laying curled up in bed Neuro: Chronic deficits Psych: Resting comfortably Medical Records Data Medical Nutrition Assessment Dietitian: Malnutrition Criteria Met Start: 05/13/25 13:28 Freq: Status: Active Protocol: Document 05/13/25 13:28 (Rec: 05/13/25 13:28 [id number]) Nutrition Malnutrition Evidence of Yes Malnutrition Exists Malnutrition (severe Chronic ): Evidenced By Weight Loss (Severe),Physical Changes (Severe) Clinical Problem Chronic Disease or Condition Related Malnutrition Etiology severe related to inadequate energy intake, increased energy expenditure and swallowing difficulty Signs/Symptoms as evidence by 6.6kg (10%) weight loss in 4 months and severe fat/muscle loss to orbital, temporal, and clavicle regions; BMI 17.4kg/m2 Status Active Problem Recommendation Dietitian Will continue home regimen for enteral nutrition Recommendations/ support as ordered. Changes Pt is NPO/dysphagia and enteral nutrition support to meet 100% of estimated nutrition needs. Continue Pivot 1.5 via PEG tube: 300mL bolus 5x daily with 100mL water flush before and after each bolus to provid 2250kcal, 140.7 grams protein, and 2125mL fluid Trend weight; enteral nutrition as ordered promotes weight gain. Weight / BMI Weight Weight: 61 kg Body Mass Index (BMI) 18.2 ABG / Lab / Microbiology Data 05/17/25 05:02 05/17/25 05:02 Laboratory: Laboratory Results - last 24 hr 05/17/25 05:02: WBC 13.1 H, RBC 3.61 L, Hgb 9.1 L, Hct 30.2 L, MCV 83.7, MCH 25.2 L, MCHC 30.1 L, RDW Std Deviation 54.6 H, RDW Coeff of Aly 17.9 H, Plt Count 560 H, MPV 9.9, Immature Gran % (Auto) 1.100 H, Neut % (Auto) 90.5 H, L ymph % (Auto) 6.6 L, [place] % (Auto) 1.7, Eos % (Auto) 0.0, Baso % (Auto) 0.1, A bsolute Neuts (auto) 11.9 H, Absolute Lymphs (auto) 0.86, Nucleated RBC % 0.2, Sodium 138, Potassium 5.2 H, Chloride 102, Carbon Dioxide 26.6, Anion Gap 10, B UN 25 H, Creatinine 1.05, Estim Creat Clear Calc 52.10, Est GFR (MDRD) Non-Af 74, BUN/Creatinine Ratio 23.5 H, Glucose 100 H, Calcium 8.9 Microbiology: Microbiology 05/12/25 16:35 Urine Catheter - [place] Urine Culture - Final ESBL Escherichia coli 05/12/25 18:01 Blood Culture (Wb) - Anticubital Right Blood Culture - Preliminary No growth in 48 hours. 05/12/25 16:25 Blood Culture (Wb) - Right Forearm Blood Culture - Preliminary No growth in 48 hours. 05/14/25 15:00 Stool Clostridioides difficile (PCR) - Final 05/14/25 07:45 Stool Stool Occult Blood (LACI) - Final 05/12/25 20:03 Mucosa - Nasopharyngeal Respiratory Panel (PCR) - Final 05/12/25 16:55 Urine, Clean Catch Legionella Antigen - Final 05/12/25 16:55 Urine, Clean Catch Streptococcus pneumoniae Antigen (M - Final 05/12/25 16:35 Mucosa - Nose SARS-CoV-2, Influenza & RSV (PCR) - Final D/C Instructions DC O2, CPAP, BIPAP Needs Home O2 Discharge instructions: Yes Type of respiratory needs?: Oxygen Oxygen frequency: Continuous Continuous oxygen liters per minute: 2 DC home with Oxygen: Yes Home O2 MD Review: I have reviewed the oxygen testing, and the patient qualifies for home oxygen equipment and portability. The patient is mobile in the home and the community. Meaningful Use Info Meaningful Use Meaningful Use Diagnoses (Choose all that apply): None applicable Discharge Plan Admission Admit Date/Time: 05/12/25 18:52 Primary Reason for Your Visit: Shortness of breath and wheezing Attending Provider: Celia Toribio Primary Care Provider: Oleghe,Efewongbe Consulting Providers: Shilpa Contreras; Brody Maynard; Santiago,Paulino; Etta John; Emilie Shields; Tigist Perez; Kathi Ibrahim Instructions Patient Instructions: ED Fall Prevention Additional Instructions / Restrictions: DISCHARGE INSTRUCTIONS PLEASE READ *Please take this with you to your next doctors appointment* - You will need a CBC to check your hemoglobin in 3 days, if there are further drops you will need to follow-up with GI for consideration for colonoscopy - You will need 2 more days of Levaquin to complete a course for pneumonia -You will be discharged on a prednisone taper: -60 mg daily x3 days -50mg daily x3 days -40mg daily x3 days -30mg daily x3 days -20mg daily x3 days -10mg daily x3 days -Please call your primary care provider's office upon discharge to schedule a hospital follow up within 1 week. -For any concerning signs or symptoms please call 911 or proceed to the nearest emergency department Discharge Orders/Prescriptions Prescriptions: New prednisone 20 mg Tablet See Taper PO BREAKFAST Qty: 32 0RF Taper: Prednisone Taper 60 mg WITH BREAKFAST for 3 Days and 0 Hour 50 mg WITH BREAKFAST for 3 Days and 0 Hour 40 mg WITH BREAKFAST for 3 Days and 0 Hour 30 mg WITH BREAKFAST for 3 Days and 0 Hour 20 mg WITH BREAKFAST for 3 Days and 0 Hour 10 mg WITH BREAKFAST for 3 Days and 0 Hour levofloxacin 750 mg tablet 750 mg PO DAILY 2 Days Qty: 2 0RF Jevity 1.5 Alex 0.06 gram-1.5 kcal/mL Liquid 300 ml G-tube 5X/DAY Qty: 0 0RF Continued acetaminophen 325 mg Tablet 650 mg feeding tube Q6H PRN PRN (Reason: Pain 1-10 Or Fever>100.7) Qty: 0 0RF ipratropium-albuterol 0.5 mg-3 mg(2.5 mg base)/3 mL Solution For Nebulization 3 ml inhalation .q6hwa Qty: 0 0RF clonidine 0.2 mg/24 hr Patch Weekly 0.2 mg transdermal Q7D Qty: 0 0RF amlodipine 10 mg Tablet 10 mg G-tube DAILY.RT Qty: 0 0RF carbamazepine 100 mg/5 mL Suspension 200 mg G-tube 4X/DAY Qty: 0 0RF thiamine HCl (vitamin B1) 100 mg Tablet 100 mg G-tube BREAKFAST Qty: 0 0RF sertraline 100 mg tablet 100 mg feeding tube DAILY 30 Days Qty: 30 0RF mirtazapine 15 MG tablet 15 mg feeding tube QHS 30 Days Qty: 30 0RF ergocalciferol (vitamin D2) [Vitamin D2] 1,250 mcg (50,000 unit) Capsule 1,250 mcg feeding tube Q7D Qty: 0 0RF cholecalciferol (vitamin D3) 50 mcg (2,000 unit) tablet 50 mcg feeding tube DAILY 30 Days Qty: 30 0RF hydralazine 25 mg Tablet 50 mg G-tube 3XD Rx Instructions: Hold for SBP less than 110 atorvastatin 40 mg Tablet 40 mg G-tube QHS Qty: 0 0RF lansoprazole [Prevacid] 30 mg capsule,delayed release(DR/EC) 30 mg feeding tube BID Qty: 1 0RF Eliquis 5 mg Tablet 2.5 mg G-tube BID albuterol sulfate 2.5 mg /3 mL (0.083 %) Solution For Nebulization 2.5 mg inhalation Q2H PRN PRN (Reason: Dyspnea, wheezing) Qty: 0 0RF menthol-zinc oxide [Calmoseptine] 0.44-20.6 % Ointment 1 applic topical 4X/DAY Qty: 0 0RF Protocol: *Topical Application Instructions APPLICATION INSTRUCTIONS: apply to affected region bisacodyl 10 mg suppository 10 mg HI PRN divalproex [Depakote] 125 mg tablet,delayed release (DR/EC) 125 mg PO BID Patient Comments: VIA G-TUBE Glucagon Emergency Kit (human) 1 mg recon soln 1 mg IM Q20M PRN (Reason: hypoglycemia) Rx Instructions: until target blood sugar attained tamsulosin 0.4 mg capsule 0.4 mg PO QHS guaifenesin [Adult Wal-Tussin] 100 mg/5 mL liquid 200 mg PO Q4H PRN (Reason: congestion/COUGH) metoprolol tartrate 50 mg tablet 50 mg feeding tube BID magnesium hydroxide [Gentle Laxative (mag hydrox)] 400 mg/5 mL suspension 30 ml PO DAILY Held losartan 100 mg tablet 100 mg feeding tube DAILY 30 Days Qty: 30 0RF Hold Instructions: Resume on 05/20/25. Discontinued prednisone 20 mg tablet 20 mg PO DAILY Qty: 10 0RF Rx Instructions: 20 mg daily for 10 days then discontinue-start on 05/09/2025 Referrals / Follow Up: Lorraine Mena MD [Primary Care Provider, Internal Medicine] Disposition Disposition (needs filled in before D/C Order can be placed): Residential Facility Charges/Coding Visit Charges Inpatient E&M: 20624 Disch Hosp
== END 2025-05-17 15:50 | disposition skilled nursing facility (03) | DRG 190 ==
LOC: ED 19:07 → MS3 19:40
PROVIDERS: Internal Medicine Gastroenterology; Student in an Organized Health Care Education/Training Program; Admitting Provider Family Medicine; Emergency Provider Emergency Medicine; PCP Internal Medicine; Visit Provider Internal Medicine
PROC: 0DJ08ZZ Inspection of Upper Intestinal Tract, Via Natural or Artificial Opening Endoscopic (ICD-10-PCS; CPT 43235; principal; 2025-05-16 10:10)
DX: J44.0 Chronic obstructive pulmonary disease with (acute) lower respiratory infection (principal); J96.21 Acute and chronic respiratory failure with hypoxia; J69.0 Pneumonitis due to inhalation of food and vomit; E43 Unspecified severe protein-calorie malnutrition; J18.9 Pneumonia, unspecified organism; I69.351 Hemiplegia and hemiparesis following cerebral infarction affecting right dominant side; K51.90 Ulcerative colitis, unspecified, without complications; N13.8 Other obstructive and reflux uropathy; Z68.1 Body mass index [BMI] 19.9 or less, adult; N39.0 Urinary tract infection, site not specified; Z16.12 Extended spectrum beta lactamase (ESBL) resistance; R13.10 Dysphagia, unspecified; Z99.81 Dependence on supplemental oxygen; E11.22 Type 2 diabetes mellitus with diabetic chronic kidney disease; G40.909 Epilepsy, unspecified, not intractable, without status epilepticus; I12.9 Hypertensive chronic kidney disease with stage 1 through stage 4 chronic kidney disease, or unspecified chronic kidney disease; F32.A Depression, unspecified; D50.0 Iron deficiency anemia secondary to blood loss (chronic); I48.0 Paroxysmal atrial fibrillation; Z93.1 Gastrostomy status; I69.320 Aphasia following cerebral infarction; E83.51 Hypocalcemia; I69.391 Dysphagia following cerebral infarction; N18.2 Chronic kidney disease, stage 2 (mild); E11.51 Type 2 diabetes mellitus with diabetic peripheral angiopathy without gangrene; E78.5 Hyperlipidemia, unspecified; G47.33 Obstructive sleep apnea (adult) (pediatric); F41.9 Anxiety disorder, unspecified; I25.10 Atherosclerotic heart disease of native coronary artery without angina pectoris; F17.210 Nicotine dependence, cigarettes, uncomplicated; I65.23 Occlusion and stenosis of bilateral carotid arteries; K21.9 Gastro-esophageal reflux disease without esophagitis; K44.9 Diaphragmatic hernia without obstruction or gangrene; S51.812A Laceration without foreign body of left forearm, initial encounter; S61.512A Laceration without foreign body of left wrist, initial encounter; G89.29 Other chronic pain; B96.20 Unspecified Escherichia coli [E. coli] as the cause of diseases classified elsewhere; N40.1 Benign prostatic hyperplasia with lower urinary tract symptoms; M81.0 Age-related osteoporosis without current pathological fracture; Z87.19 Personal history of other diseases of the digestive system; Z79.01 Long term (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 of anticoagulants; Z79.899 Other long term (current) drug therapy; Z79.51 Long term (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 of inhaled steroids; Z87.898 Personal history of other specified conditions; Z91.199 Patient's noncompliance with other medical treatment and regimen due to unspecified reason
CPT/HCPCS: 36415; 36600; 51702; 71045; 80048; 80053; 80202; 81001; 82274; 82728; 82803; 83540; 83550; 83605; 84484; 85025; 85610; 85730; 87040; 87077; 87086; 87088; 87186; 87449; 87493; 87631; 87633; 93005; 94640; 94667; 94668; 94762; 97163; 97167; 97530; 97802; 99285; A4216

== ENCOUNTER 2025-05-18 10:30 | Emergency (ER) | payer MEDICARE, MEDICAID, SELFPAY ==
[2025-05-18 10:31] VITALS: BP 163/82; PULSE 90; RESP 18; TEMP 36.6; O2SAT 98; BMI 16.7
--- OUTSIDE RECORDS SUMMARY | 2025-05-18 10:49 | XMS RPT_ITS | CCD ---
Author Organization [facility] CliniSyil Care Team Providers Care Canoe Inspector Final Name Role Phone Selene RANDALL, Daija Primary Care Provider Madeline GUIDE RAIL CLEANER, Beatriz Unavailable Unavailab johnson Morton MD, Daija Unavailable 13, Pharmacist Unavailable Artemio RN, Lizette Unavailable [phone] Dr. Daija Morton Primary Care Provider Dr. [...] Provider Dr. Elton Moore Other Provider [phone] Raul Melchor Emergency Provider Dr. Андрей Cooley Attending Provider Dr. Андрей Cooleyit Provider Dr. Андрей Cooley Other Provider Dr. Roman Patel Attending Provider [phone] Dr. Roman Patel Other Provider Dr. Daija [...] Selene RANDALL, Dr. Choe Primary Care Provider Ros aMaria RANDALL, Dr. Aguirre Attending Provider Unavaila deandre [...] Dr. Aguirre Attending Provider Unavaila ble Older SENIOR DRUPAL DEVELOPER.GUIDE RAIL CLEANER, Anjel Unavailable Aaron GUTIERREZ, Dr. Vizcaino Emergency [...] Provider Jairo RANDALL, Dr. Bowens Other Provider [phone] Rolly RANDALL, Dr. Guzman Other Provider [...] Other Provider Inez RANDALL, Angelo Other Provider [phone] Tanesha RANDALL, Neelam Other Provider Mikey RANDALL, Dr. Carter Attending Provider Santiago GUTIERREZ, Dr. Bob Attending Provider Selene RANDALL, Dr. Choe Primary Care Provider Albin GUTIERREZ, Dr. Husain Other Provider Lorraine Mena MD Attending Provider Unavailluis Zhao DO, Dr. Arredondo Emergency Provider Dr. Fco Monroy MD Emergency Provider Trina RANDALL, Dr. Peters Primary Care Provider Mateo RANDALL, Admit Provider Unavailable Mateo RANADLL, Attending Provider Jacques Galindo MD, Other Provider Unavailable Apoorva GUTIERREZ, Dr. Davis Attending Provider Dr. Ryan Guerin DO Other Provider Dr. Lisha Talamantes DO Referring Provider Dr. Shilpa Contreras MD Referring Provider Lorraine Mena MD Referring Provider Unavailluis Zhao DO, Dr. Arredondo Attending Provider Dr. Geronimo Downey MD Attending Provider Dr. Frankie Reatna DO Referring Provider Mackenzie Iniguez Attending Provider Dr. Lorraine Mena MD Referring Provider Dr. Daija Morton MD Referring Provider Jo-Ann WATERSHannah Chamorro Attending Provider Mateo RANDALL, Referring Provider Unavaila deandre Doss MACHINE PRINTER HOSE-C, Josefa Attending Provider Trina RANDALL, Dr. Peters Primary Care Provider Trina RANDALL, Dr. Peters Attending Provider Trina RANDALL, Dr. Peters Primary Care Provider Romario MACHINE PRINTER HOSE-C, Josefa Attending Provider Selene RANDALL, Dr. Choe Primary Care Provider Rosa Maria RANDALL, Dr. Aguirre Attending Provider Unavaila deandre Guerin DO, Dr. Davis Referring Provider ROSA MARIA RANDALL, DR CARLA Damon Primary Care Physician [phone] MAGDALENE POWELL DO Attending Unavailable ROSA MARIA RANDALL, DR CARLA Damon Primary Care Unavailabl Lisha Uriarte Admitting Unavailable Ganta, Daija Primary Care Unavailable Albin Lisha Consulting Unavailable Celia Toribio Attending Unavailable Elton Moore Consulting Unavailable Celia Toribio Consulting Unavailable Hannah Busch Attending Unavailable [facility] Unavailable [facility], Daija Referring Unavailable Josefa Doss NP Attending Unavailable [facility] Unavailable Lisha Talamantes Attending [facility]available [facility] Primary Care Unavailable White, Shilpa L Admitting Unavailable White, Shilpa L Consulting Unavailable Albin, Lisha Consulting Unavailable Yaya Talamantesyn Attending Unavailable [facility], Daija Primary Care Unavailable White, Shilpa L Admitting Unavailable White, Shilpa L Consulting Unavailable Albin, Lisha Admitting Unavailable Albin Lisha Consulting Unavailable Celia Toribio Attending Unavailable [facility] Primary Care Unavailable Celia [...] Unavailable White, Shilpa L Attending Unavailable White, Hsilpa L Admitting Unavailable White, Shilpa L Consulting Unavailable [facility], [facility] Primary Care Unavailable [place] MACHINE PRINTER HOSE, Josefa Attending Unavailable [place] MACHINE PRINTER HOSE, Josefa Attending Unavailable [facility]lee, [facility] Primary Care Unavailable Olee, [facility] Primary Care Unavailable [place]lee, [place] Attending Unavailable Lisha Talamantes Attending Unavailable [place], Ricardo Consulting Unavailable Hinduja, Amy Consulting Unavailable [...] Consulting Unavailable Lisha Talamantes Referring Unavailable [place] MACHINE PRINTER HOSE, Josefa Attending Unavailable [facility], [facility] Primary Care Unavailable Olee, [place] Referring Unavailable [facility] Unavailable Mackenzie Dangelo Attending Unavailable [place] MACHINE PRINTER HOSE, Josefa Attending Unavailable [facility], [place] Primary Care Unavailable Florencioton MACHINE PRINTER HOSE, Josefa Attending Unavailable [facility] Unavailable Roman Patel Consulting Unavailable Jorge Roman Admitting Unavailable Roman Patel Attending Unavailable [facility] Primary Care Unavailable Ricardo Mccullough Consulting Unavailable Lisha Talamantes Attending Unavailable [facility] Primary Care Unavailable Jorge Roman [...] Start: 08-22-2023 End: 12-24-2024 168 hr cloNIDine 0.52268 mg/ hr transdermal system (20 sources) Central [...] Comment on above: Take 1 capsule by [facility] once daily. traMADol hydrochloride 50 mg oral [...] unspecified emphysema type (HCC) Aerosol supplies Dx:J44.1 NPI#[id number] 1 Each 2 04/11/2018 02/02/2022 Discontinued (Duplicate Entry) Start: 04-11-2018 End: 02-02-2022 COMPOUNDED PRESCRIPTION Tamela cations: Pulmonary emphysema, unspecified emphysema type (HCC) NEBULIZER FOR HOME USE. DX: Emphysema, COPD 1 Each 3 04/11/2018 02/02/2022 Discontinued (Duplicate Entry) Start: 04-11-2018 COMPOUNDED PRE SCRIPTION Indications: Pulmonary emphysema, unspecified emphysema type (HCC) Aerosol supplies Dx:J44.1 NPI#[id number] 1 Each 2 04/11/2018 Active Start: 04-11-2018 COMPOUNDED PRE SCRIPTION Indications: Pulmonary emphysema, unspecified emphysema type (HCC) NEBULIZER FOR HOME USE. DX: Emphysema, COPD 1 Each 3 04/11/2018 Active Comment on above: Aerosol supplies Dx: J44.1 NPI#[id number] NEBULIZER FOR HOME U SE. DX: Emphysema, COPD 12 hr dextromethorphan hydrobromide 60 mg / guaiFENesin 1200 mg extended release oral tablet (20 sources) Uncompetitive Q-jdngcq-A-aspartate Receptor Antagonist, Sigma-1 Agonist Start: 09-02-2024 End: [...] fracture of L2 vertebra, initial encounter ([facility]) Take 1 capsule by [...] above: Take 1 capsule by mo [facility] once daily as needed for Constipation. Take with pain medication docusate sodium 50 mg / sennosides, fdc 8.6 mg oral tablet (20 sources) Start: [...] Corticosteroid, beta2-Adrenergic Agonist Start: 03-24-2020 End: 04-05-2021 ovrctnagapv-yezuhnhqo-fx lanter (TRELEGY ELLIPTA) 100-62.5-25 mcg [The details [...] on above: Take 1 capsule by mo [facility] once daily. 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 Take 1 tablet [...] End: 12-07-2015 Start: 12-02-2015 End: 12-07-2015 Tiotropium Orosi (Spiriva 18 Mcg) 1 PUFF inhaler Discontinued 1 NMA INHALATION DAILY December 02, 2015 12:00am December 07, 2015 10:02am Start: 12-02-2015 End: 12-07-2015 Start: 12-02-2015 End: 12-07-2015 take 1 puff(s) by inhalation once daily Tiotropium Orosi (Spiriva 18 Mcg) 1 PUFF inhaler Discontinued 1 PUFF INHALATION DAILY December 01, 2015 11:00pm December 07, 2015 9:02am Start: 01-26-2014 End: 09-29-2015 Start: 01-26-2014 End: 09-29-2015 take 1 puff(s) by inhalation once daily Tiotropium Orosi (Spiriva With Handihaler) 1 PUFF inhaler Discontinued 1 NMA INHALATION DAILY January 26, 2014 12:00am September 29, 2015 1:10pm Start: 01-26-2014 End: 09-29-2015 Start: 01-26-2014 End: 09-29-2015 take 1 puff(s) by inhalation once daily Tiotropium Orosi (Spiriva With Handihaler) 1 PUFF inhaler Discontinued [...] 09/13/2021 Take 2 tablets by mo [facility] once daily. As dosed based on PT/INR [...] Coronary arteriosclerosis; Translations: [Atherosclerotic heart disease of pra[place] coronary artery without angina pectoris] Onset: 3 [...] anticoagulants] 08-18-2021 Episodic Other aftercare (20 sources) intermission coordinator (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 of anticoagulants; Translations: [Long-term (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 of anticoagulants] Episodic Other aftercare (20 sources) Drug therapy finding; Translations: [intermission coordinator (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 of opiate analgesic] 02-09-2019 Episodic [...] 12-17-2019 Episodic Other aftercare (1 source) Other log sorter (current) drug therapy; Translations: [Other log sorter (current) drug therapy] Onset: 12-24-2024 Episodic Other [...] FAQ page (http://www.e-imo.co m/faq/vocabportal_fa q.aspx) or contact [facility] Customer Support at [email or web address] 03-20-2013 Results Test Name Value Interpretation Reference [...] 4:14:48 AM Ordering Provider: MAGDALENE POWELL RP [facility] CT MAXILLOFACIAL W/O CONTRAS Ton 03-18-2025 [...] 4:22:40 AM Ordering Provider: MAGDALENE POWELL RP [facility] CT SPINE CERVICAL W/O CONTRA STon [...] AM Ordering Provider: MAGDALENE POWELL RP Normal [facility] Absolute lymphocyte countOrd ered By: Lorraine Mena on 02-18-2025 Lymphocytes Auto (Unsp spec) [#/Vol] 0.91 10*3/uL 0.83-4.51 [facility] Anion gap in Serum or Plasma Ordered By: Lorraine Mena on 02-18-2025 Anion gap [Moles/Vol] 12 mmol/L 5-15 [facility] Automated lymphocyte count a s percentage of total leukocytesOrdered By: Lorraine Mena on 02-18-2025 Lymphocytes/100 WBC Auto (Unsp spec) 9.9 % Low 19-41 [facility] BUN/creatinine ratioOrdered By: Lorraine Mena on 02-18-2025 Urea nitrogen/Creatinine [Mass ratio] 16.0 mg/mg 10-20 [facility] Basophil percentageOrdered B y: Lorraine Mena on 02-18-2025 Basophils/100 WBC (Bld) 0.5 % 0-1 [facility] Calculated very low density lipoprotein (VLDL) cholesterol measurementOrdered By: Lorraine Mena on 02-18-2025 Calculated very low density lipoprotein (VLDL) cholesterol measurement 17 mg/dL 5-40 [facility] Carbon dioxide, total [Moles /volume] in Central venous bloodOrdered By: ml Mena on 02-18-2025 CO2 [Moles/Vol] 26.0 mmol/L 21.0-32.0 [facility] Chloride assayOrdered By: Ledy Mena on 02-18-2025 Chloride [Moles/Vol] 99 mmol/L 98-108 [facility] Eosinophil percentageOrdered By: Lorraine Mena on 02-18-2025 Eosinophils/100 WBC (Bld) 0.4 % 0-5 [facility] Erythrocyte distribution wid th ratioOrdered By: Candler Hospitalthao Mena on 02-18-2025 Erythrocyte distribution width (RBC) [Ratio] 16.4 % High 11.6-14.6 [facility] Erythrocyte distribution wid th standard deviationOrdered By: Roselynrockdalethao Mena on 02-18-2025 Erythrocyte distribution width (RBC) [Ratio] 51.2 fl High 35.1-43.9 [facility] Glomerular filtration rate ( GFR) estimation/1.73 sq m using serum, plasma, or whole bOrdered By: Lorraine Mena on 02-18-2025 GFR/1.73 sq M.predicted among non-blacks MDRD (S/P/Bld) [Vol rate/Area] 66 mL/min/{1.73_m2} >60 [facility] Hematocrit Auto (Bld) [Volum e fraction]Ordered By: Lorraine Mena on 02-18-2025 Hematocrit (Bld) [Volume fraction] 32.2 % Low 40-54 [facility] Hemoglobin measurementOrdere d By: Lorraine Mena on 02-18-2025 Hemoglobin (Bld) [Mass/Vol] 9.9 g/dL Low 13.0-16.5 [facility] Immature granulocytes/100 WB C Auto (Bld)Ordered By: Lorraine Mena on 02-18-2025 Immature granulocytes/100 WBC (Bld) 0.500 % 0.0-0.9 [facility] LDL calc ser/plasOrdered By: Ledyroelorri Mena on 02-18-2025 Cholesterol in LDL [Mass/Vol] 61 mg/dL [facility] MCV (mean corpuscular volume ) determinationOrdered By: ml Almonteemi on 02-18-2025 MCV (RBC) [Entitic vol] 85.6 fL 80-94 [facility] Mean corpuscular hemoglobin (MCH) determinationOrdered By: Lorraine Mena on 02-18-2025 MCH (RBC) [Entitic mass] 26.3 pg Low 27.0-32.0 [facility] Monocyte percentageOrdered B y: Lorraine Almonteemi on 02-18-2025 Monocytes/100 WBC (Bld) 5.9 % 0-10 [facility] Neutrophil percentageOrdered By: ml Mena on 02-18-2025 Neutrophils/100 WBC (Bld) 82.8 % High 47-70 [facility] Platelet countOrdered By: Ledy Mena on 02-18-2025 Platelets (Bld) [#/Vol] 454 10*3/uL High 150-450 [facility] Potassium measurement (mass/ volume)Ordered By: Ledyroelorri Emmettbandarmei on 02-18-2025 Potassium (Unsp spec) [Mass/Vol] 4.0 mmol/L 3.3-5.1 [facility] RBC Auto (Bld) [#/Vol]Ordere d By: Lorraine Mena on 02-18-2025 RBC (Bld) [#/Vol] 3.76 10*6/uL Low 4.6-6.2 [facility] Serum creatinine measurement (mass/volume)Ordered By: Nettiethao Christinebandaremi on 02-18-2025 Creatinine [Mass/Vol] 1.16 mg/dL 0.70-1.20 [facility] Serum glucose measurement (m ass/volume)Ordered By: Lorraine Mean on 02-18-2025 Glucose [Mass/Vol] 112 mg/dL High 70-99 [facility] Serum or plasma calcium luis urement (mass/volume)Ordered By: Lorraine Mena on 02-18-2025 Calcium [Mass/Vol] 9.5 mg/dL 7.6-11.0 [facility] Serum or plasma cholesterol in HDL measurement (mass/volume)Ordered By: Lorraine Mena on 02-18-2025 Cholesterol in HDL [Mass/Vol] 96 mg/dL >40 [facility] Serum or plasma cholesterol measurement (mass/volume)Ordered By: Lorraine Mena on 02-18-2025 Cholesterol [Mass/Vol] 174 mg/dL <201 [facility] Serum or plasma urea nitroge n measurement (mass/volume)Ordered By: Lorraine Mena on 02-18-2025 Urea nitrogen [Mass/Vol] 19 mg/dL 4-19 [facility] Sodium levelOrdered By: Roselyn Mena on 02-18-2025 Sodium [Moles/Vol] 137 mmol/L 133-145 [facility] White blood cell (WBC) count Ordered By: Lorraine Mena on 02-18-2025 WBC (Bld) [#/Vol] 9.2 10*3/uL 4.4-11.0 [facility] Absolute lymphocyte countOrd ered By: Lorraine Mena on 02-11-2025 Lymphocytes Auto (Unsp spec) [#/Vol] 1.18 10*3/uL 0.83-4.51 [facility] Anion gap in Serum or Plasma Ordered By: Lorraine Mena on 02-11-2025 Anion gap [Moles/Vol] 11 mmol/L 5-15 [facility] Automated lymphocyte count a s percentage of total leukocytesOrdered By: Lorraine Mena on 02-11-2025 Lymphocytes/100 WBC Auto (Unsp spec) 16.0 % Low 19-41 [facility] BUN/creatinine ratioOrdered By: Lorraine Mena on 02-11-2025 Urea nitrogen/Creatinine [Mass ratio] 23.5 mg/mg High 10-20 [facility] Basophil percentageOrdered B y: Lorraine Christinebandaremi on 02-11-2025 Basophils/100 WBC (Bld) 0.7 % 0-1 [facility] Calculated very low density lipoprotein (VLDL) cholesterol measurementOrdered By: Lorraine Mena on 02-11-2025 Calculated very low density lipoprotein (VLDL) cholesterol measurement 19 mg/dL 5-40 [facility] Carbon dioxide, total [Moles /volume] in Central venous bloodOrdered By: Lorraine Mena on 02-11-2025 CO2 [Moles/Vol] 26.3 mmol/L 21.0-32.0 [facility] Chloride assayOrdered By: Ledy Mena on 02-11-2025 Chloride [Moles/Vol] 101 mmol/L 98-108 [facility] Eosinophil percentageOrdered By: Lorraine Mena on 02-11-2025 Eosinophils/100 WBC (Bld) 0.9 % 0-5 [facility] Erythrocyte distribution wid th ratioOrdered By: Lorraine Mena on 02-11-2025 Erythrocyte distribution width (RBC) [Ratio] 16.5 % High 11.6-14.6 [facility] Erythrocyte distribution wid th standard deviationOrdered By: Lorraine Mena on 02-11-2025 Erythrocyte distribution width (RBC) [Ratio] 51.8 fl High 35.1-43.9 [facility] Glomerular filtration rate ( GFR) estimation/1.73 sq m using serum, plasma, or whole bOrdered By: Lorraine Mena on 02-11-2025 GFR/1.73 sq M.predicted among non-blacks MDRD (S/P/Bld) [Vol rate/Area] 72 mL/min/{1.73_m2} >60 [facility] Hematocrit Auto (Bld) [Volum e fraction]Ordered By: Lorraine Mena on 02-11-2025 Hematocrit (Bld) [Volume fraction] 31.3 % Low 40-54 [facility] Hemoglobin measurementOrdere d By: Lorraine Mena on 02-11-2025 Hemoglobin (Bld) [Mass/Vol] 10.0 g/dL Low 13.0-16.5 [facility] Immature granulocytes/100 WB C Auto (Bld)Ordered By: Lorraine Mena on 02-11-2025 Immature granulocytes/100 WBC (Bld) 0.400 % 0.0-0.9 [facility] LDL calc ser/plasOrdered By: Lorraine Mena on 02-11-2025 Cholesterol in LDL [Mass/Vol] 56 mg/dL [facility] MCV (mean corpuscular volume ) determinationOrdered By: ml Mena on 02-11-2025 MCV (RBC) [Entitic vol] 86.5 fL 80-94 [facility] Mean corpuscular hemoglobin (MCH) determinationOrdered By: roerockdalethao Mena on 02-11-2025 MCH (RBC) [Entitic mass] 27.6 pg 27.0-32.0 [facility] Monocyte percentageOrdered B y: Lorraine Mena on 02-11-2025 Monocytes/100 WBC (Bld) 9.3 % 0-10 [facility] Neutrophil percentageOrdered By: roerockdalethao Mena on 02-11-2025 Neutrophils/100 WBC (Bld) 72.7 % High 47-70 [facility] Platelet countOrdered By: Ledy Mena on 02-11-2025 Platelets (Bld) [#/Vol] 457 10*3/uL High 150-450 [facility] Potassium measurement (mass/ volume)Ordered By: Lorraine Almonteemi on 02-11-2025 Potassium (Unsp spec) [Mass/Vol] 4.3 mmol/L 3.3-5.1 [facility] RBC Auto (Bld) [#/Vol]Ordere d By: Lorraine Mena on 02-11-2025 RBC (Bld) [#/Vol] 3.62 10*6/uL Low 4.6-6.2 [facility] Serum creatinine measurement (mass/volume)Ordered By: Lorraine Almonteemi on 02-11-2025 Creatinine [Mass/Vol] 1.07 mg/dL 0.70-1.20 [facility] Serum glucose measurement (m ass/volume)Ordered By: Lorraine Mena on 02-11-2025 Glucose [Mass/Vol] 78 mg/dL 70-99 [facility] Serum or plasma calcium luis urement (mass/volume)Ordered By: Lorraine Mena on 02-11-2025 Calcium [Mass/Vol] 9.6 mg/dL 7.6-11.0 [facility] Serum or plasma cholesterol in HDL measurement (mass/volume)Ordered By: Lorraine Mena on 02-11-2025 Cholesterol in HDL [Mass/Vol] 98 mg/dL >40 [facility] Serum or plasma cholesterol measurement (mass/volume)Ordered By: Lorraine Mena on 02-11-2025 Cholesterol [Mass/Vol] 173 mg/dL <201 [facility] Serum or plasma urea nitroge n measurement (mass/volume)Ordered By: Lorraine Mena on 02-11-2025 Urea nitrogen [Mass/Vol] 25 mg/dL High 4-19 [facility] Sodium levelOrdered By: Roselyn gauthierdaphney Trina on 02-11-2025 Sodium [Moles/Vol] 138 mmol/L 133-145 [facility] White blood cell (WBC) count Ordered By: Lorraine Mena on 02-11-2025 WBC (Bld) [#/Vol] 7.4 10*3/uL 4.4-11.0 [facility] Urine Legionella pneumophila antigen detectionOrdered By: Lorraine Mena on 02-09-2025 L. pneumophila Ag Ql (U) [facility] Absolute lymphocyte countOrd ered By: Lorraine Mena on 02-03-2025 Lymphocytes Auto (Unsp spec) [#/Vol] 1.05 10*3/uL 0.83-4.51 [facility] Anion gap in Serum or Plasma Ordered By: Lorraine Mena on 02-03-2025 Anion gap [Moles/Vol] 11 mmol/L 5-15 [facility] Automated lymphocyte count a s percentage of total leukocytesOrdered By: Lorraine Mena on 02-03-2025 Lymphocytes/100 WBC Auto (Unsp spec) 13.9 % Low 19-41 [facility] BUN/creatinine ratioOrdered By: Lorraine Mena on 02-03-2025 Urea nitrogen/Creatinine [Mass ratio] 20.3 mg/mg High 10-20 [facility] Basophil percentageOrdered B y: Lorraine Mena on 02-03-2025 Basophils/100 WBC (Bld) 0.8 % 0-1 [facility] Calculated very low density lipoprotein (VLDL) cholesterol measurementOrdered By: Lorraine Mena on 02-03-2025 Calculated very low density lipoprotein (VLDL) cholesterol measurement 25 mg/dL 5-40 [facility] Carbon dioxide, total [Moles /volume] in Central venous bloodOrdered By: Lorraine Mena on 02-03-2025 CO2 [Moles/Vol] 26.5 mmol/L 21.0-32.0 [facility] Chloride assayOrdered By: Ledy Mena on 02-03-2025 Chloride [Moles/Vol] 99 mmol/L 98-108 [facility] Eosinophil percentageOrdered By: Lorraine Mena on 02-03-2025 Eosinophils/100 WBC (Bld) 1.2 % 0-5 [facility] Erythrocyte distribution wid th ratioOrdered By: Lorraine Mena on 02-03-2025 Erythrocyte distribution width (RBC) [Ratio] 16.4 % High 11.6-14.6 [facility] Erythrocyte distribution wid th standard deviationOrdered By: Lorraine Mena on 02-03-2025 Erythrocyte distribution width (RBC) [Ratio] 52.5 fl High 35.1-43.9 [facility] Glomerular filtration rate ( GFR) estimation/1.73 sq m using serum, plasma, or whole bOrdered By: Lorraine Mena on 02-03-2025 GFR/1.73 sq M.predicted among non-blacks MDRD (S/P/Bld) [Vol rate/Area] 66 mL/min/{1.73_m2} >60 [facility] Hematocrit Auto (Bld) [Volum e fraction]Ordered By: Lorraine Mena on 02-03-2025 Hematocrit (Bld) [Volume fraction] 32.1 % Low 40-54 [facility] Hemoglobin measurementOrdere d By: Lorraine Mena on 02-03-2025 Hemoglobin (Bld) [Mass/Vol] 9.9 g/dL Low 13.0-16.5 [facility] Immature granulocytes/100 WB C Auto (Bld)Ordered By: Lorraine Mena on 02-03-2025 Immature granulocytes/100 WBC (Bld) 0.500 % 0.0-0.9 [facility] LDL calc ser/plasOrdered By: roerockdalethao Mena on 02-03-2025 Cholesterol in LDL [Mass/Vol] 46 mg/dL [facility] MCV (mean corpuscular volume ) determinationOrdered By: Lorraine Mena on 02-03-2025 MCV (RBC) [Entitic vol] 87.2 fL 80-94 [facility] Mean corpuscular hemoglobin (MCH) determinationOrdered By: Lorraine Mena on 02-03-2025 MCH (RBC) [Entitic mass] 26.9 pg Low 27.0-32.0 [facility] Monocyte percentageOrdered B y: Lorraine Mena on 02-03-2025 Monocytes/100 WBC (Bld) 7.4 % 0-10 [facility] Neutrophil percentageOrdered By: Lorraine Mena on 02-03-2025 Neutrophils/100 WBC (Bld) 76.2 % High 47-70 [facility] Platelet countOrdered By: Ledy Mena on 02-03-2025 Platelets (Bld) [#/Vol] 423 10*3/uL 150-450 [facility] Potassium measurement (mass/ volume)Ordered By: Lorraine Mena on 02-03-2025 Potassium (Unsp spec) [Mass/Vol] 3.9 mmol/L 3.3-5.1 [facility] RBC Auto (Bld) [#/Vol]Ordere d By: Lorraine Mena on 02-03-2025 RBC (Bld) [#/Vol] 3.68 10*6/uL Low 4.6-6.2 [facility] Serum creatinine measurement (mass/volume)Ordered By: Lorraine Mena on 02-03-2025 Creatinine [Mass/Vol] 1.15 mg/dL 0.70-1.20 [facility] Serum glucose measurement (m ass/volume)Ordered By: Lorraine Mena on 02-03-2025 Glucose [Mass/Vol] 91 mg/dL 70-99 [facility] Serum or plasma calcium luis urement (mass/volume)Ordered By: Lorraine Mena on 02-03-2025 Calcium [Mass/Vol] 9.0 mg/dL 7.6-11.0 [facility] Serum or plasma cholesterol in HDL measurement (mass/volume)Ordered By: Lorraine Mena on 02-03-2025 Cholesterol in HDL [Mass/Vol] 88 mg/dL >40 [facility] Serum or plasma cholesterol measurement (mass/volume)Ordered By: Lorraine Mena on 02-03-2025 Cholesterol [Mass/Vol] 159 mg/dL <201 [facility] Serum or plasma urea nitroge n measurement (mass/volume)Ordered By: Lorraine Mena on 02-03-2025 Urea nitrogen [Mass/Vol] 23 mg/dL High 4-19 [facility] Sodium levelOrdered By: Roselyn gauthierdaphney Trina on 02-03-2025 Sodium [Moles/Vol] 136 mmol/L 133-145 [facility] White blood cell (WBC) count Ordered By: Lorraine Mena on 02-03-2025 WBC (Bld) [#/Vol] 7.5 10*3/uL 4.4-11.0 [facility] Absolute lymphocyte countOrd ered By: Lorraine Mena on 01-27-2025 Lymphocytes Auto (Unsp spec) [#/Vol] 1.04 10*3/uL 0.83-4.51 [facility] Anion gap in Serum or Plasma Ordered By: Lorraine Mena on 01-27-2025 Anion gap [Moles/Vol] 12 mmol/L 5-15 [facility] Automated lymphocyte count a s percentage of total leukocytesOrdered By: Lorraine Mena on 01-27-2025 Lymphocytes/100 WBC Auto (Unsp spec) 14.3 % Low 19-41 [facility] BUN/creatinine ratioOrdered By: Lorraine Mena on 01-27-2025 Urea nitrogen/Creatinine [Mass ratio] 23.2 mg/mg High 10-20 [facility] Basophil percentageOrdered B y: Lorraine Mena on 01-27-2025 Basophils/100 WBC (Bld) 0.7 % 0-1 [facility] Calculated very low density lipoprotein (VLDL) cholesterol measurementOrdered By: Lorraine Mena on 01-27-2025 Calculated very low density lipoprotein (VLDL) cholesterol measurement 17 mg/dL 5-40 [facility] Carbon dioxide, total [Moles /volume] in Central venous bloodOrdered By: Lorraine Mena on 01-27-2025 CO2 [Moles/Vol] 26.9 mmol/L 21.0-32.0 [facility] Chloride assayOrdered By: Ledy Mena on 01-27-2025 Chloride [Moles/Vol] 96 mmol/L Low 98-108 [facility] Eosinophil percentageOrdered By: Lorraine Mena on 01-27-2025 Eosinophils/100 WBC (Bld) 1.0 % 0-5 [facility] Erythrocyte distribution wid th ratioOrdered By: Lorraine Mena on 01-27-2025 Erythrocyte distribution width (RBC) [Ratio] 16.7 % High 11.6-14.6 [facility] Erythrocyte distribution wid th standard deviationOrdered By: Lorraine Mena on 01-27-2025 Erythrocyte distribution width (RBC) [Ratio] 53.6 fl High 35.1-43.9 [facility] Glomerular filtration rate ( GFR) estimation/1.73 sq m using serum, plasma, or whole bOrdered By: Lorraine Mena on 01-27-2025 GFR/1.73 sq M.predicted among non-blacks MDRD (S/P/Bld) [Vol rate/Area] 60 mL/min/{1.73_m2} >60 [facility] Hematocrit Auto (Bld) [Volum e fraction]Ordered By: Lorraine Mena on 01-27-2025 Hematocrit (Bld) [Volume fraction] 31.2 % Low 40-54 [facility] Hemoglobin measurementOrdere d By: Lorraine Mena on 01-27-2025 Hemoglobin (Bld) [Mass/Vol] 9.5 g/dL Low 13.0-16.5 [facility] Immature granulocytes/100 WB C Auto (Bld)Ordered By: Ledyroelisathao Christinebandaremi on 01-27-2025 Immature granulocytes/100 WBC (Bld) 0.600 % 0.0-0.9 [facility] LDL calc ser/plasOrdered By: roerockdalethao Christinebandaremi on 01-27-2025 Cholesterol in LDL [Mass/Vol] 64 mg/dL [facility] MCV (mean corpuscular volume ) determinationOrdered By: Ledyroelorri Emmettbandaremi on 01-27-2025 MCV (RBC) [Entitic vol] 88.4 fL 80-94 [facility] Mean corpuscular hemoglobin (MCH) determinationOrdered By: Ledyml Christinebandaremi on 01-27-2025 MCH (RBC) [Entitic mass] 26.9 pg Low 27.0-32.0 [facility] Monocyte percentageOrdered B y: Lorraine Mena on 01-27-2025 Monocytes/100 WBC (Bld) 7.6 % 0-10 [facility] Neutrophil percentageOrdered By: roerockdalethao Emmettalex on 01-27-2025 Neutrophils/100 WBC (Bld) 75.8 % High 47-70 [facility] Platelet countOrdered By: ml Emmettbandaremi on 01-27-2025 Platelets (Bld) [#/Vol] 413 10*3/uL 150-450 [facility] Potassium measurement (mass/ volume)Ordered By: Ledyroelisathao Christinebandaremi on 01-27-2025 Potassium (Unsp spec) [Mass/Vol] 4.4 mmol/L 3.3-5.1 [facility] RBC Auto (Bld) [#/Vol]Ordere d By: Lorraine Mena on 01-27-2025 RBC (Bld) [#/Vol] 3.53 10*6/uL Low 4.6-6.2 [facility] Serum creatinine measurement (mass/volume)Ordered By: Lorraine Mena on 01-27-2025 Creatinine [Mass/Vol] 1.25 mg/dL High 0.70-1.20 [facility] Serum glucose measurement (m ass/volume)Ordered By: Lorraine Mena on 01-27-2025 Glucose [Mass/Vol] 86 mg/dL 70-99 [facility] Serum or plasma calcium luis urement (mass/volume)Ordered By: Lorraine Mena on 01-27-2025 Calcium [Mass/Vol] 9.5 mg/dL 7.6-11.0 [facility] Serum or plasma cholesterol in HDL measurement (mass/volume)Ordered By: Lorraine Mena on 01-27-2025 Cholesterol in HDL [Mass/Vol] 81 mg/dL >40 [facility] Serum or plasma cholesterol measurement (mass/volume)Ordered By: Lorraine Mena on 01-27-2025 Cholesterol [Mass/Vol] 161 mg/dL <201 [facility] Serum or plasma urea nitroge n measurement (mass/volume)Ordered By: Lorraine Mena on 01-27-2025 Urea nitrogen [Mass/Vol] 29 mg/dL High 4-19 [facility] Sodium levelOrdered By: Roselyn Mena on 01-27-2025 Sodium [Moles/Vol] 135 mmol/L 133-145 [facility] White blood cell (WBC) count Ordered By: Lorraine Mena on 01-27-2025 WBC (Bld) [#/Vol] 7.3 10*3/uL 4.4-11.0 [facility] Absolute lymphocyte countOrd ered By: Lorraine Mena on 01-20-2025 Lymphocytes Auto (Unsp spec) [#/Vol] 0.97 10*3/uL 0.83-4.51 [facility] Anion gap in Serum or Plasma Ordered By: Lorraine Mena on 01-20-2025 Anion gap [Moles/Vol] 13 mmol/L 5-15 [facility] Automated lymphocyte count a s percentage of total leukocytesOrdered By: Lorraine Mena on 01-20-2025 Lymphocytes/100 WBC Auto (Unsp spec) 14.9 % Low 19-41 [facility] BUN/creatinine ratioOrdered By: Lorraine Mena on 01-20-2025 Urea nitrogen/Creatinine [Mass ratio] 20.4 mg/mg High 10-20 [facility] Basophil percentageOrdered B y: Lorraine Mena on 01-20-2025 Basophils/100 WBC (Bld) 0.6 % 0-1 [facility] Calculated very low density lipoprotein (VLDL) cholesterol measurementOrdered By: Lorraine Mena on 01-20-2025 Calculated very low density lipoprotein (VLDL) cholesterol measurement 16 mg/dL 5-40 [facility] Carbon dioxide, total [Moles /volume] in Central venous bloodOrdered By: Lorraine Mena on 01-20-2025 CO2 [Moles/Vol] 26.0 mmol/L 21.0-32.0 [facility] Chloride assayOrdered By: Ledy Mena on 01-20-2025 Chloride [Moles/Vol] 99 mmol/L 98-108 [facility] Eosinophil percentageOrdered By: Lorraine Mena on 01-20-2025 Eosinophils/100 WBC (Bld) 0.9 % 0-5 [facility] Erythrocyte distribution wid th ratioOrdered By: Lorraine Mena on 01-20-2025 Erythrocyte distribution width (RBC) [Ratio] 16.6 % High 11.6-14.6 [facility] Erythrocyte distribution wid th standard deviationOrdered By: Lorraine Mena on 01-20-2025 Erythrocyte distribution width (RBC) [Ratio] 54.0 fl High 35.1-43.9 [facility] Glomerular filtration rate ( GFR) estimation/1.73 sq m using serum, plasma, or whole bOrdered By: Lorraine Mena on 01-20-2025 GFR/1.73 sq M.predicted among non-blacks MDRD (S/P/Bld) [Vol rate/Area] 62 mL/min/{1.73_m2} >60 [facility] Hematocrit Auto (Bld) [Volum e fraction]Ordered By: Lorraine Mena on 01-20-2025 Hematocrit (Bld) [Volume fraction] 30.5 % Low 40-54 [facility] Hemoglobin measurementOrdere d By: Ledyroelisathao Christinebandaremi on 01-20-2025 Hemoglobin (Bld) [Mass/Vol] 9.4 g/dL Low 13.0-16.5 [facility] Immature granulocytes/100 WB C Auto (Bld)Ordered By: Lorraine Mena on 01-20-2025 Immature granulocytes/100 WBC (Bld) 0.500 % 0.0-0.9 [facility] LDL calc ser/plasOrdered By: roerockdalethao Mena on 01-20-2025 Cholesterol in LDL [Mass/Vol] 45 mg/dL [facility] MCV (mean corpuscular volume ) determinationOrdered By: Roselynrockdalethao Mena on 01-20-2025 MCV (RBC) [Entitic vol] 88.9 fL 80-94 [facility] Mean corpuscular hemoglobin (MCH) determinationOrdered By: Lorraine Mena on 01-20-2025 MCH (RBC) [Entitic mass] 27.4 pg 27.0-32.0 [facility] Monocyte percentageOrdered B y: Ledyroelisathao Christinebandaremi on 01-20-2025 Monocytes/100 WBC (Bld) 8.2 % 0-10 [facility] Neutrophil percentageOrdered By: Lorraine Mena on 01-20-2025 Neutrophils/100 WBC (Bld) 74.9 % High 47-70 [facility] Platelet countOrdered By: Ledy ellethao Mena on 01-20-2025 Platelets (Bld) [#/Vol] 405 10*3/uL 150-450 [facility] Potassium measurement (mass/ volume)Ordered By: Ledyml Mena on 01-20-2025 Potassium (Unsp spec) [Mass/Vol] 3.7 mmol/L 3.3-5.1 [facility] RBC Auto (Bld) [#/Vol]Ordere d By: Roselynlisathao Christinebandaremi on 01-20-2025 RBC (Bld) [#/Vol] 3.43 10*6/uL Low 4.6-6.2 [facility] Serum creatinine measurement (mass/volume)Ordered By: Lorraine Mena on 01-20-2025 Creatinine [Mass/Vol] 1.21 mg/dL High 0.70-1.20 [facility] Serum glucose measurement (m ass/volume)Ordered By: Lorraine Mena on 01-20-2025 Glucose [Mass/Vol] 149 mg/dL High 70-99 [facility] Serum or plasma calcium luis urement (mass/volume)Ordered By: Lorraine Mena on 01-20-2025 Calcium [Mass/Vol] 9.4 mg/dL 7.6-11.0 [facility] Serum or plasma cholesterol in HDL measurement (mass/volume)Ordered By: Lorraine Mena on 01-20-2025 Cholesterol in HDL [Mass/Vol] 75 mg/dL >40 [facility] Serum or plasma cholesterol measurement (mass/volume)Ordered By: Lorraine Mena on 01-20-2025 Cholesterol [Mass/Vol] 136 mg/dL <201 [facility] Serum or plasma urea nitroge n measurement (mass/volume)Ordered By: Lorraine Mena on 01-20-2025 Urea nitrogen [Mass/Vol] 25 mg/dL High 4-19 [facility] Sodium levelOrdered By: Roselyn Mena on 01-20-2025 Sodium [Moles/Vol] 137 mmol/L 133-145 [facility] White blood cell (WBC) count Ordered By: Lorraine Mena on 01-20-2025 WBC (Bld) [#/Vol] 6.5 10*3/uL 4.4-11.0 [facility] Absolute lymphocyte countOrd ered By: Lorraine Mena on 01-13-2025 Lymphocytes Auto (Unsp spec) [#/Vol] 0.97 10*3/uL 0.83-4.51 [facility] Anion gap in Serum or Plasma Ordered By: Lorraine Mena on 01-13-2025 Anion gap [Moles/Vol] 11 mmol/L 5-15 [facility] Automated lymphocyte count a s percentage of total leukocytesOrdered By: Lorraine Mena on 01-13-2025 Lymphocytes/100 WBC Auto (Unsp spec) 16.5 % Low 19-41 [facility] BUN/creatinine ratioOrdered By: Lorraine Mena on 01-13-2025 Urea nitrogen/Creatinine [Mass ratio] 17.7 mg/mg 10-20 [facility] Basophil percentageOrdered B y: Lorraine Mena on 01-13-2025 Basophils/100 WBC (Bld) 0.8 % 0-1 [facility] Calculated very low density lipoprotein (VLDL) cholesterol measurementOrdered By: Lorraine Mena on 01-13-2025 Calculated very low density lipoprotein (VLDL) cholesterol measurement 34 mg/dL 5-40 [facility] Carbon dioxide, total [Moles /volume] in Central venous bloodOrdered By: Lorraine Mena on 01-13-2025 CO2 [Moles/Vol] 27.7 mmol/L 21.0-32.0 [facility] Chloride assayOrdered By: Ledy Mena on 01-13-2025 Chloride [Moles/Vol] 101 mmol/L 98-108 [facility] Eosinophil percentageOrdered By: Lorraine Mena on 01-13-2025 Eosinophils/100 WBC (Bld) 1.0 % 0-5 [facility] Erythrocyte distribution wid th ratioOrdered By: Lorraine Mena on 01-13-2025 Erythrocyte distribution width (RBC) [Ratio] 16.1 % High 11.6-14.6 [facility] Erythrocyte distribution wid th standard deviationOrdered By: Lorraine Mena on 01-13-2025 Erythrocyte distribution width (RBC) [Ratio] 51.1 fl High 35.1-43.9 [facility] Glomerular filtration rate ( GFR) estimation/1.73 sq m using serum, plasma, or whole bOrdered By: Lorraine Mena on 01-13-2025 GFR/1.73 sq M.predicted among non-blacks MDRD (S/P/Bld) [Vol rate/Area] 70 mL/min/{1.73_m2} >60 [facility] Hematocrit Auto (Bld) [Volum e fraction]Ordered By: Lorraine Emmettbandaremi on 01-13-2025 Hematocrit (Bld) [Volume fraction] 31.4 % Low 40-54 [facility] Hemoglobin measurementOrdere d By: Lorraine Mena on 01-13-2025 Hemoglobin (Bld) [Mass/Vol] 9.9 g/dL Low 13.0-16.5 [facility] Immature granulocytes/100 WB C Auto (Bld)Ordered By: Lorraine Mena on 01-13-2025 Immature granulocytes/100 WBC (Bld) 0.500 % 0.0-0.9 [facility] LDL calc ser/plasOrdered By: Candler Hospitalthao Almonteemi on 01-13-2025 Cholesterol in LDL [Mass/Vol] 51 mg/dL [facility] MCV (mean corpuscular volume ) determinationOrdered By: roerockdalethao Emmettbandaremi on 01-13-2025 MCV (RBC) [Entitic vol] 87.7 fL 80-94 [facility] Mean corpuscular hemoglobin (MCH) determinationOrdered By: Ledyroelorri Mena on 01-13-2025 MCH (RBC) [Entitic mass] 27.7 pg 27.0-32.0 [facility] Monocyte percentageOrdered B y: Lorraine Mena on 01-13-2025 Monocytes/100 WBC (Bld) 6.8 % 0-10 [facility] Neutrophil percentageOrdered By: Lorraine Mena on 01-13-2025 Neutrophils/100 WBC (Bld) 74.4 % High 47-70 [facility] Platelet countOrdered By: Ledy Mena on 01-13-2025 Platelets (Bld) [#/Vol] 421 10*3/uL 150-450 [facility] Potassium measurement (mass/ volume)Ordered By: Lorraine Mena on 01-13-2025 Potassium (Unsp spec) [Mass/Vol] 3.8 mmol/L 3.3-5.1 [facility] RBC Auto (Bld) [#/Vol]Ordere d By: Lorraine Mena on 01-13-2025 RBC (Bld) [#/Vol] 3.58 10*6/uL Low 4.6-6.2 [facility] Serum creatinine measurement (mass/volume)Ordered By: Lorraine Mena on 01-13-2025 Creatinine [Mass/Vol] 1.10 mg/dL 0.70-1.20 [facility] Serum glucose measurement (m ass/volume)Ordered By: Lorraine Mena on 01-13-2025 Glucose [Mass/Vol] 110 mg/dL High 70-99 [facility] Serum or plasma calcium luis urement (mass/volume)Ordered By: Lorraine Mena on 01-13-2025 Calcium [Mass/Vol] 9.2 mg/dL 7.6-11.0 [facility] Serum or plasma cholesterol in HDL measurement (mass/volume)Ordered By: Lorraine Mena on 01-13-2025 Cholesterol in HDL [Mass/Vol] 63 mg/dL >40 [facility] Serum or plasma cholesterol measurement (mass/volume)Ordered By: Lorraine Mena on 01-13-2025 Cholesterol [Mass/Vol] 147 mg/dL <201 [facility] Serum or plasma urea nitroge n measurement (mass/volume)Ordered By: Lorraine Mena on 01-13-2025 Urea nitrogen [Mass/Vol] 20 mg/dL High 4-19 [facility] Sodium levelOrdered By: Roselyn Mena on 01-13-2025 Sodium [Moles/Vol] 140 mmol/L 133-145 [facility] White blood cell (WBC) count Ordered By: Lorraine Mena on 01-13-2025 WBC (Bld) [#/Vol] 5.9 10*3/uL 4.4-11.0 [facility] Electrocardiogram reportOrde red By: Geronimo Downey on 01-07-[address] [facility] Other Phone: Absolute lymphocyte countOrd ered By: Frankie Galindo on 01-06-2025 Lymphocytes Auto (Unsp spec) [#/Vol] 0.58 10*3/uL Low 0.83-4.51 [facility] Anion gap in Serum or Plasma Ordered By: Frankie Galindo on 01-06-2025 Anion gap [Moles/Vol] 12 mmol/L 5-15 [facility] Automated lymphocyte count a s percentage of total leukocytesOrdered By: Frankie Galindo on 01-06-2025 Lymphocytes/100 WBC Auto (Unsp spec) 4.8 % Low 19-41 [facility] BUN/creatinine ratioOrdered By: Frankie Galindo on 01-06-2025 Urea nitrogen/Creatinine [Mass ratio] 14.2 mg/mg 10-20 [facility] Basophil percentageOrdered B y: Frankie Galindo on 01-06-2025 Basophils/100 WBC (Bld) 0.2 % 0-1 [facility] Carbon dioxide, total [Moles /volume] in Central venous bloodOrdered By: Frankie Galindo on 01-06-2025 CO2 [Moles/Vol] 27.9 mmol/L 21.0-32.0 [facility] Chloride assayOrdered By: Osiel Galindo on 01-06-2025 Chloride [Moles/Vol] 98 mmol/L 98-108 [facility] Eosinophil percentageOrdered By: Frankie Galindo on 01-06-2025 Eosinophils/100 WBC (Bld) 0.1 % 0-5 [facility] Erythrocyte distribution wid th ratioOrdered By: Frankie Galindo on 01-06-2025 Erythrocyte distribution width (RBC) [Ratio] 15.3 % High 11.6-14.6 [facility] Erythrocyte distribution wid th standard deviationOrdered By: Frankie Galindo on 01-06-2025 Erythrocyte distribution width (RBC) [Ratio] 49.7 fl High 35.1-43.9 [facility] Glomerular filtration rate ( GFR) estimation/1.73 sq m using serum, plasma, or whole bOrdered By: Frankie Galindo on 01-06-2025 GFR/1.73 sq M.predicted among non-blacks MDRD (S/P/Bld) [Vol rate/Area] 52 mL/min/{1.73_m2} Low >60 [facility] Hematocrit Auto (Bld) [Volum e fraction]Ordered By: Frankie Galindo on 01-06-2025 Hematocrit (Bld) [Volume fraction] 35.8 % Low 40-54 [facility] Hemoglobin measurementOrdere d By: Frankie Galindo on 01-06-2025 Hemoglobin (Bld) [Mass/Vol] 11.2 g/dL Low 13.0-16.5 [facility] Immature granulocytes/100 WB C Auto (Bld)Ordered By: Frankie Galindo on 01-06-2025 Immature granulocytes/100 WBC (Bld) 0.300 % 0.0-0.9 [facility] MCV (mean corpuscular volume ) determinationOrdered By: Frankie Galindo on 01-06-2025 MCV (RBC) [Entitic vol] 88.8 fL 80-94 [facility] Magnesium measurement (mass/ volume)Ordered By: Frankie Galindo on 01-06-2025 Magnesium (Unsp spec) [Mass/Vol] 2.1 mg/dL 1.5-2.2 [facility] Mean corpuscular hemoglobin (MCH) determinationOrdered By: Fraknie Galindo on 01-06-2025 MCH (RBC) [Entitic mass] 27.8 pg 27.0-32.0 [facility] Monocyte percentageOrdered B y: Frankie Galindo on 01-06-2025 Monocytes/100 WBC (Bld) 7.0 % 0-10 [facility] Neutrophil percentageOrdered By: Frankie Galindo on 01-06-2025 Neutrophils/100 WBC (Bld) 87.6 % High 47-70 [facility] Platelet countOrdered By: Osiel Galindo on 01-06-2025 Platelets (Bld) [#/Vol] 385 10*3/uL 150-450 [facility] Potassium measurement (mass/ volume)Ordered By: Frankie Galindo on 01-06-2025 Potassium (Unsp spec) [Mass/Vol] 4.9 mmol/L 3.3-5.1 [facility] RBC Auto (Bld) [#/Vol]Ordere d By: Frankie Galindo on 01-06-2025 RBC (Bld) [#/Vol] 4.03 10*6/uL Low 4.6-6.2 [facility] Serum creatinine measurement (mass/volume)Ordered By: Frankie Galindo on 01-06-2025 Creatinine [Mass/Vol] 1.41 mg/dL High 0.70-1.20 [facility] Serum glucose measurement (m ass/volume)Ordered By: Frankie aGlindo on 01-06-2025 Glucose [Mass/Vol] 111 mg/dL High 70-99 [facility] Serum or plasma calcium luis urement (mass/volume)Ordered By: Frankie Galindo on 01-06-2025 Calcium [Mass/Vol] 9.3 mg/dL 7.6-11.0 [facility] Serum or plasma urea nitroge n measurement (mass/volume)Ordered By: Frankie Galindo on 01-06-2025 Urea nitrogen [Mass/Vol] 20 mg/dL High 4-19 [facility] Sodium levelOrdered By: Matthew Galindo on 01-06-2025 Sodium [Moles/Vol] 138 mmol/L 133-145 [facility] Troponin T.cardiac [Mass/vol ume] in Serum or Plasma by High sensitivity methodOrdered By: Frankie Yi on 01-06-2025 Troponin T.cardiac High sensitivity method [Mass/Vol] 26 ng/L High <22 [facility] Troponin T.cardiac High sensitivity method [Mass/Vol] 23 ng/L High <22 [facility] White blood cell (WBC) count Ordered By: Frankie Galindo on 01-06-2025 WBC (Bld) [#/Vol] 12.0 10*3/uL High 4.4-11.0 [facility] Absolute lymphocyte countOrd ered By: Fco Monroy on 01-05-2025 Lymphocytes Auto (Unsp spec) [#/Vol] 1.45 10*3/uL 0.83-4.51 [facility] Anion gap in Serum or Plasma Ordered By: Fco Monroy on 01-05-2025 Anion gap [Moles/Vol] 14 mmol/L 5-15 [facility] Assessment of wrist artery p atency prior to arterial punctureOrdered By: Fco Monroy on 01-05-2025 Arterial patency Wrist artery --pre arterial puncture Positive [facility] Automated lymphocyte count a s percentage of total leukocytesOrdered By: Fco Monroy on 01-05-2025 Lymphocytes/100 WBC Auto (Unsp spec) 14.2 % Low 19-41 [facility] BUN/creatinine ratioOrdered By: Fco Monroy on 01-05-2025 Urea nitrogen/Creatinine [Mass ratio] 18.8 mg/mg 10- [facility] Basophil percentageOrdered B y: Fco Monroy on 01-05-2025 Basophils/100 WBC (Bld) 0.4 % 0-1 [facility] Bilirubin, totalOrdered By: Fco Monroy on 01-05-2025 Bilirubin [Mass/Vol] 0.25 mg/dL 0.00-1.30 [facility] Blood base excess determinat ionOrdered By: Fco Monroy on 01-05-2025 Base excess Calc (BldV) [Moles/Vol] 9 mmol/L High -2-2 [facility] Blood bicarbonate measuremen tOrdered By: Fco Monroy on 01-05-2025 HCO3 (Bld) [Moles/Vol] 33.0 mmol/L High 22-26 [facility] Blood cultureOrdered By: Sebastien Galindo on 01-05-2025 Bacteria identified Cx Nom (Bld) No growth in [address] [facility] CBC W/Diff, Automatedon 12-18 Absolute Lymph 1.45 X10 3/uL Normal 0.83-4.51 [facility] Comment on above: Performed By: #### L 100.0100, L500.4050, [id number] ####[facility] [address] [place], [address] Absolute Neut 7.8 X10 3/uL High 2.0-7.7 [facility] Comment on above: Performed By: #### L 100.0100, [id number], [id number] ####[facility] [address] [place], [address] Basophils/100 WBC (Bld) 0.4 % Normal 0-1 [facility] Comment on above: Performed By: #### L 100.0100, [id number], [id number] ####[facility] [address] [place], [address] Eosinophils/100 WBC (Bld) 1.2 % Normal 0-5 [facility] Comment on above: Performed By: #### L 100.0100, [id number], [id number] ####[facility] [address] [place], [address] Erythrocyte distribution width (RBC) [Ratio] 15.1 % High 11.6-14.6 [facility] Comment on above: Performed By: #### L 100.0100, [id number], [id number] ####[facility] [address] [place], [address] Hematocrit (Bld) [Volume fraction] 39.6 % Low 40-54 [facility] Comment on above: Performed By: #### L 100.0100, [id number], [id number] ####[facility] [address] [place], [address] Hemoglobin (Bld) [Mass/Vol] 12.6 g/dL Low 13.0-16.5 [facility] Comment on above: Performed By: #### L 100.0100, [id number], [id number] ####[facility] [address] [place], [address] IG% 0.500 Normal 0.0-0.9 [facility] Comment on above: Result Comment: IG% - Immature Granulocytes (promyelocytes, myelocytes andmetamyelocytes) > 1% indicates that a LEFT SHIFT is Present. Performed By: #### L 100.0100, [id number], [id number] ####[facility] [address] [place], [address] Lymphocytes/100 WBC (Bld) 14.2 % Low 19-41 [facility] Comment on above: Performed By: #### L 100.0100, [id number], [id number] ####[facility] [address] [place], [address] MCH (RBC) [Entitic mass] 27.8 pg Normal 27.0-32.0 [facility] Comment on above: Performed By: #### L 100.0100, [id number], [id number] ####[facility] [address] [place], [address] MCHC (RBC) [Mass/Vol] 31.8 g/dL Low 32-36 [facility] Comment on above: Performed By: #### L 100.0100, [id number], [id number] ####[facility] [address] [place], [address] MCV (RBC) [Entitic vol] 87.4 fL Normal 80-94 [facility] Comment on above: Performed By: #### L 100.0100, [id number], [id number] ####[facility] [address] [place], [address] Monocytes/100 WBC (Bld) 7.0 % Normal 0-10 [facility] Comment on above: Performed By: #### L 100.0100, [id number], [id number] ####[facility] [address] [place], [address] Neutrophils/100 WBC (Bld) 76.7 % High 47-70 [facility] Comment on above: Performed By: #### L 100.0100, [id number], [id number] ####[facility] [address] [place], [address] Nucleated RBC (Bld) [#/Vol] 0 10*3/uL Normal 0-5 [facility] Comment on above: Performed By: #### L 100.0100, [id number], [id number] ####[facility] [address] [place], [address] Platelet mean volume (Bld) [Entitic vol] 9.8 fL Normal 6.2-12.0 [facility] Comment on above: Performed By: #### L 100.0100, [id number], [id number] ####[facility] [address] [place], [address] Platelets (Bld) [#/Vol] 462 10*3/uL High 150-450 [facility] Comment on above: Performed By: #### L 100.0100, [id number], [id number] ####[facility] [address] [place], [address] RBC (Bld) [#/Vol] 4.53 10*6/uL Low 4.6-6.2 [facility] Comment on above: Performed By: #### L 100.0100, L500.4050, L503.6005 ####[facility] [id number] [place], [address] RDW SD 48.0 fl High 35.1-43.9 [facility] Comment on above: Performed By: #### L 100.0100, L500.4050, L503.6005 ####[facility] [id number] [place], [address] WBC (Bld) [#/Vol] 10.2 10*3/uL Normal 4.4-11.0 [facility] Comment on above: Performed By: #### L 100.0100, L500.4050, L503.6005 ####[facility] [id number] [place], [address] Carbon dioxide, total [Moles /volume] in Central venous bloodOrdered By: Fco Monroy on 01-05-2025 CO2 [Moles/Vol] 28.4 mmol/L 21.0-32.0 [facility] Chloride assayOrdered By: Ug o Monroy on 01-05-2025 Chloride [Moles/Vol] 93 mmol/L Low 98-108 [facility] Comprehensive Metabolic Prof ilon 01-05-2025 Albumin [Mass/Vol] 4.6 g/dL Normal 3.4-4.8 [facility] Comment on above: Performed By: #### L 100.0100, L500.4050, L503.6005 ####[facility] [address] [place], [address] Albumin/Globulin [Mass ratio] 1.4 {ratio} Normal 0.9-2.4 [facility] Comment on above: Performed By: #### L 100.0100, L500.4050, L503.6005 ####[facility] [address] [place], [address] ALK PHOS 83 U/L Normal 40-129 [facility] Comment on above: Performed By: #### L 100.0100, L500.4050, L503.6005 ####[facility] [address] [place], [address] ALT [Catalytic activity/Vol] 33 U/L Normal <=46 [facility] Comment on above: Performed By: #### L 100.0100, L500.4050, L503.6005 ####[facility] [address] [place], [address] AST [Catalytic activity/Vol] 32 U/L Normal <=37 [facility] Comment on above: Result Comment: Hemo lysis present, Results??could be affected.?? Performed By: #### L 100.0100, L500.4050, L503.6005 ####[facility] [address] [place], [address] Bilirubin [Mass/Vol] 0.25 mg/dL Normal 0.00-1.30 [facility] Comment on above: Performed By: #### L 100.0100, L500.4050, L503.6005 ####[facility] [address] [place], [address] BUN/CRE 18.8 RATIO Normal 10-20 [facility] Comment on above: Performed By: #### L 100.0100, L500.4050, L503.6005 ####[facility] [address] [place], [address] Calcium [Mass/Vol] 10.3 mg/dL Normal 7.6-11.0 [facility] Comment on above: Performed By: #### L 100.0100, L500.4050, L503.6005 ####[facility] [address] [place], [address] Chloride [Moles/Vol] 93 mmol/L Low 98-108 [facility] Comment on above: Performed By: #### L 100.0100, L500.4050, L503.6005 ####[facility] [address] [place], [address] CO2 [Moles/Vol] 28.4 mmol/L Normal 21.0-32.0 [facility] Comment on above: Performed By: #### L 100.0100, L500.4050, L503.6005 ####[facility] [address] [place], [address] Creatinine [Mass/Vol] 1.25 mg/dL High 0.70-1.20 [facility] Comment on above: Performed By: #### L 100.0100, L500.4050, L503.6005 ####[facility] [address] [place], [address] ECRCL 54.46 ml/min Normal 50-250 [facility] Comment on above: Performed By: #### L 100.0100, L500.4050, L503.6005 ####[facility] [address] [place], [address] GAP 14 Normal 5-15 [facility] Comment on above: Performed By: #### L 100.0100, L500.4050, L503.6005 ####[facility] [address] [place], [address] GFR/1.73 sq M.predicted among non-blacks MDRD (S/P/Bld) [Vol rate/Area] 60 mL/min/{1.73_m2} Normal >60 [facility] Comment on above: Result Comment: mL/m in/1.73m2 CKD-EPI Creatinine Equation (2020) Performed By: #### L 100.0100, L500.4050, L503.6005 ####[facility] [address] [place], [address] Globulin (S) [Mass/Vol] 3.2 g/dL Normal 2.2-4.2 [facility] Comment on above: Performed By: #### L 100.0100, L500.4050, L503.6005 ####[facility] [address] [place], [address] Glucose [Mass/Vol] 123 mg/dL High 70-99 [facility] Comment on above: Performed By: #### L 100.0100, L500.4050, L503.6005 ####[facility] [address] [place], [address] Potassium [Moles/Vol] 4.3 mmol/L Normal 3.3-5.1 [facility] Comment on above: Result Comment: Hemo lysis present, Results??could be affected.?? Performed By: #### L 100.0100, L500.4050, L503.6005 ####[facility] [address] [place], [address] Sodium [Moles/Vol] 135 mmol/L Normal 133-145 [facility] Comment on above: Performed By: #### L 100.0100, L500.4050, L503.6005 ####[facility] [address] [place], [address] T PROT 7.8 g/dL Normal 5.9-8.4 [facility] Comment on above: Performed By: #### L 100.0100, L500.4050, L503.6005 ####[facility] [address] [place], [address] Urea nitrogen [Mass/Vol] 24 mg/dL High 4-19 [facility] Comment on above: Performed By: #### L 100.0100, L500.4050, L503.6005 ####[facility] [address] [place], [address] Eosinophil percentageOrdered By: Fco Monroy on 01-05-2025 Eosinophils/100 WBC (Bld) 1.2 % 0-5 [facility] Erythrocyte distribution wid th ratioOrdered By: Fco Monroy on 01-05-2025 Erythrocyte distribution width (RBC) [Ratio] 15.1 % High 11.6-14.6 [facility] Erythrocyte distribution wid th standard deviationOrdered By: Fco Monroy on 01-05-2025 Erythrocyte distribution width (RBC) [Ratio] 48.0 fl High 35.1-43.9 [facility] Glomerular filtration rate ( GFR) estimation/1.73 sq m using serum, plasma, or whole bOrdered By: Fco Monroy on 01-05-2025 GFR/1.73 sq M.predicted among non-blacks MDRD (S/P/Bld) [Vol rate/Area] 60 mL/min/{1.73_m2} >60 [facility] Gram stainOrdered By: Frankie Galindo on 01-05-2025 Microscopic observation Gram stain Nom (Unsp spec) [facility] Hematocrit Auto (Bld) [Volum e fraction]Ordered By: Fco Monroy on 01-05-2025 Hematocrit (Bld) [Volume fraction] 39.6 % Low 40-54 [facility] Hemoglobin measurementOrdere d By: Fco Monroy on 01-05-2025 Hemoglobin (Bld) [Mass/Vol] 12.6 g/dL Low 13.0-16.5 [facility] Immature granulocytes/100 WB C Auto (Bld)Ordered By: Fco Monroy on 01-05-2025 Immature granulocytes/100 WBC (Bld) 0.500 % 0.0-0.9 [facility] Lactic Acidon 01-05-2025 Lactate [Moles/Vol] 1.1 mmol/L Normal 0.0-2.0 [facility] Comment on above: Order Comment: Y Performed By: #### L 100.0100, L500.4050, L503.6005 ####[facility] [address] [place], [place], [address] MCV (mean corpuscular volume ) determinationOrdered By: Fco Monroy on 01-05-2025 MCV (RBC) [Entitic vol] 87.4 fL 80-94 [facility] Mean corpuscular hemoglobin (MCH) determinationOrdered By: Fco Monroy on 01-05-2025 MCH (RBC) [Entitic mass] 27.8 pg 27.0-32.0 [facility] Measurement, pHOrdered By: Tahira Monroy on 01-05-2025 pH (Unsp spec) 7.45 [pH] 7.35-7.45 [facility] Microbial respiratory cultur eOrdered By: Frankie Galindo on 01-05-2025 Microorganism identified Cx Nom (Unsp spec) Proteus mirabilis Abnormal [facility] Monocyte percentageOrdered B y: Fco Monroy on 01-05-2025 Monocytes/100 WBC (Bld) 7.0 % 0-10 [facility] Neutrophil percentageOrdered By: Fco Monroy on 01-05-2025 Neutrophils/100 WBC (Bld) 76.7 % High 47-70 [facility] No Panel InformationOrdered By: Fco Monroy on 01-05-[address] [facility] L Radial [facility] Not entered [facility] Cannula [facility] 32 U/L <38 [facility] Platelet countOrdered By: Keleln Monroy on 01-05-2025 Platelets (Bld) [#/Vol] 462 10*3/uL High 150-450 [facility] Potassium measurement (mass/ volume)Ordered By: Fco Monroy on 01-05-2025 Potassium (Unsp spec) [Mass/Vol] 4.3 mmol/L 3.3-5.1 [facility] RBC Auto (Bld) [#/Vol]Ordere d By: Fco Monroy on 01-05-2025 RBC (Bld) [#/Vol] 4.53 10*6/uL Low 4.6-6.2 [facility] Respiratory pathogens detect ion panel by molecular detection methodOrdered By: Frankie Galindo on 01-05-2025 Respiratory pathogens DNA and RNA panel ALEENA+probe (Resp) [facility] Klof-swv-1Lyhebid By: Frankie Galindo on 01-05-2025 SARS-CoV-2 (COVID-19) RNA ALEENA+probe Ql (Unsp spec) [facility] Serum creatinine measurement (mass/volume)Ordered By: Fco Monroy on 01-05-2025 Creatinine [Mass/Vol] 1.25 mg/dL High 0.70-1.20 [facility] Serum globulin measurementOr dered By: Fco Monroy on 01-05-2025 Globulin (S) [Mass/Vol] 3.2 g/dL 2.2-4.2 [facility] Serum glucose measurement (m ass/volume)Ordered By: Fco Monroy on 01-05-2025 Glucose [Mass/Vol] 123 mg/dL High 70-99 [facility] Serum or plasma alanine saul otransferase (ALT) measurementOrdered By: Fco Monroy on 01-05-2025 ALT [Catalytic activity/Vol] 33 U/L <47 [facility] Serum or plasma albumin luis urement (mass/volume)Ordered By: Fco Monroy on 01-05-2025 Albumin [Mass/Vol] 4.6 g/dL 3.4-4.8 [facility] Serum or plasma albumin/glob ulin mass ratioOrdered By: Fco Monroy on 01-05-2025 Albumin/Globulin [Mass ratio] 1.4 {ratio} 0.9-2.4 [facility] Serum or plasma alkaline kathleen sphatase measurementOrdered By: Fco Monroy on 01-05-2025 ALP [Catalytic activity/Vol] 83 U/L 40-129 [facility] Serum or plasma calcium luis urement (mass/volume)Ordered By: Fco Monroy on 01-05-2025 Calcium [Mass/Vol] 10.3 mg/dL 7.6-11.0 [facility] Serum or plasma urea nitroge n measurement (mass/volume)Ordered By: Fco Monroy on 01-05-2025 Urea nitrogen [Mass/Vol] 24 mg/dL High 4-19 [facility] Sodium levelOrdered By: Fco Monroy on 01-05-2025 Sodium [Moles/Vol] 135 mmol/L 133-145 [facility] Total carbon dioxide measure mentOrdered By: Fco Monroy on 01-05-2025 CO2 [Moles/Vol] 35 mmol/L [facility] Total proteinOrdered By: Fco Monroy on 01-05-2025 Protein [Mass/Vol] 7.8 g/dL 5.9-8.4 [facility] Troponin T.cardiac [Mass/vol ume] in Serum or Plasma by High sensitivity methodOrdered By: Frankie Yi on 01-05-2025 Troponin T.cardiac High sensitivity method [Mass/Vol] 22 ng/L <22 [facility] Urine Legionella pneumophila antigen detectionOrdered By: Frankie Galindo on 01-05-2025 L. pneumophila Ag Ql (U) [facility] White blood cell (WBC) count Ordered By: Fco Monroy on 01-05-2025 WBC (Bld) [#/Vol] 10.2 10*3/uL 4.4-11.0 [facility] Abdomen Single View (Portabl e)on 01-03-2025 Abdomen Single View (Portable) Normal [facility] Brain/Head without Contrasto n 01-03-2025 Brain/Head without Contrast Normal [facility] Emergency Department Summary on 01-03-2025 [address] Normal [facility] Pelvis 1 or 2 Viewson 2024 Pelvis 1 or 2 Views Normal [facility] Spine Cervical without Contr ason 01-03-2025 Spine Cervical without Contras Normal [facility] Anion gap in Serum or Plasma Ordered By: Lorraine Mena on 12-31-2024 Anion gap [Moles/Vol] 12 mmol/L 5-15 [facility] BUN/creatinine ratioOrdered By: Lorraine Mena on 12-31-2024 Urea nitrogen/Creatinine [Mass ratio] 21.5 mg/mg High 10-20 [facility] Bilirubin, totalOrdered By: Lorraine Mena on 12-31-2024 Bilirubin [Mass/Vol] 0.17 mg/dL 0.00-1.30 [facility] Carbon dioxide, total [Moles /volume] in Central venous bloodOrdered By: Lorraine Mena on 12-31-2024 CO2 [Moles/Vol] 30.5 mmol/L 21.0-32.0 [facility] Chloride assayOrdered By: Ledy Mena on 12-31-2024 Chloride [Moles/Vol] 95 mmol/L Low 98-108 [facility] Glomerular filtration rate ( GFR) estimation/1.73 sq m using serum, plasma, or whole bOrdered By: Lorraine Mena on 12-31-2024 GFR/1.73 sq M.predicted among non-blacks MDRD (S/P/Bld) [Vol rate/Area] 64 mL/min/{1.73_m2} >60 [facility] No Panel InformationOrdered By: Lorraine Mena on 12-31-2024 34 U/L <38 [facility] Potassium measurement (mass/ volume)Ordered By: Lorraine Mena on 12-31-2024 Potassium (Unsp spec) [Mass/Vol] 3.9 mmol/L 3.3-5.1 [facility] Serum creatinine measurement (mass/volume)Ordered By: Lorraine Mena on 12-31-2024 Creatinine [Mass/Vol] 1.19 mg/dL 0.70-1.20 [facility] Serum globulin measurementOr dered By: Lorraine Mena on 12-31-2024 Globulin (S) [Mass/Vol] 2.9 g/dL 2.2-4.2 [facility] Serum glucose measurement (m ass/volume)Ordered By: Lorraine Mena on 12-31-2024 Glucose [Mass/Vol] 110 mg/dL High 70-99 [facility] Serum or plasma alanine saul otransferase (ALT) measurementOrdered By: Lorraine Mena on 12-31-2024 ALT [Catalytic activity/Vol] 35 U/L <47 [facility] Serum or plasma albumin luis urement (mass/volume)Ordered By: Lorraine Mena on 12-31-2024 Albumin [Mass/Vol] 3.9 g/dL 3.4-4.8 [facility] Serum or plasma albumin/glob ulin mass ratioOrdered By: Lorraine Mena on 12-31-2024 Albumin/Globulin [Mass ratio] 1.3 {ratio} 0.9-2.4 [facility] Serum or plasma alkaline kathleen sphatase measurementOrdered By: Lorraine Mena 12-31-2024 ALP [Catalytic activity/Vol] 63 U/L 40-129 [facility] Serum or plasma calcium luis urement (mass/volume)Ordered By: Lorraine Mena on 12-31-2024 Calcium [Mass/Vol] 10.1 mg/dL 7.6-11.0 [facility] Serum or plasma urea nitroge n measurement (mass/volume)Ordered By: Lorraine Mena on 12-31-2024 Urea nitrogen [Mass/Vol] 26 mg/dL High 4-19 [facility] Sodium levelOrdered By: Roselyn Mena on 12-31-2024 Sodium [Moles/Vol] 138 mmol/L 133-145 [facility] Total proteinOrdered By: David Mena on 12-31-2024 Protein [Mass/Vol] 6.9 g/dL 5.9-8.4 [facility] Absolute lymphocyte countOrd ered By: Lorraine Mena on 12-30-2024 Lymphocytes Auto (Unsp spec) [#/Vol] 1.08 10*3/uL 0.83-4.51 [facility] Anion gap in Serum or Plasma Ordered By: Lorraine Mena on 12-30-2024 Anion gap [Moles/Vol] 17 mmol/L High 5-15 [facility] Automated lymphocyte count a s percentage of total leukocytesOrdered By: Lorraine Mena on 12-30-2024 Lymphocytes/100 WBC Auto (Unsp spec) 14.4 % Low 19-41 [facility] BUN/creatinine ratioOrdered By: Lorraine Mena on 12-30-2024 Urea nitrogen/Creatinine [Mass ratio] 20.3 mg/mg High 10-20 [facility] Basophil percentageOrdered B y: Lorraine Mena on 12-30-2024 Basophils/100 WBC (Bld) 0.7 % 0-1 [facility] Bilirubin, totalOrdered By: Lorraine Mena on 12-30-2024 Bilirubin [Mass/Vol] 0.18 mg/dL 0.00-1.30 [facility] Carbon dioxide, total [Moles /volume] in Central venous bloodOrdered By: Lorraine Mena on 12-30-2024 CO2 [Moles/Vol] 28.7 mmol/L 21.0-32.0 [facility] Chloride assayOrdered By: Ledy roelorri Mena on 12-30-2024 Chloride [Moles/Vol] 94 mmol/L Low 98-108 [facility] Eosinophil percentageOrdered By: Lorraine Christinebandaremi on 12-30-2024 Eosinophils/100 WBC (Bld) 0.8 % 0-5 [facility] Erythrocyte distribution wid th ratioOrdered By: Lorraine Mena on 12-30-2024 Erythrocyte distribution width (RBC) [Ratio] 15.0 % High 11.6-14.6 [facility] Erythrocyte distribution wid th standard deviationOrdered By: Lorraine Mena on 12-30-2024 Erythrocyte distribution width (RBC) [Ratio] 47.7 fl High 35.1-43.9 [facility] Glomerular filtration rate ( GFR) estimation/1.73 sq m using serum, plasma, or whole bOrdered By: Lorraine Mena on 12-30-2024 GFR/1.73 sq M.predicted among non-blacks MDRD (S/P/Bld) [Vol rate/Area] 64 mL/min/{1.73_m2} >60 [facility] Hematocrit Auto (Bld) [Volum e fraction]Ordered By: Lorraine Mena on 12-30-2024 Hematocrit (Bld) [Volume fraction] 36.1 % Low 40-54 [facility] Hemoglobin measurementOrdere d By: Lorraine Mena on 12-30-2024 Hemoglobin (Bld) [Mass/Vol] 11.3 g/dL Low 13.0-16.5 [facility] Immature granulocytes/100 WB C Auto (Bld)Ordered By: Lorraine Mena on 12-30-2024 Immature granulocytes/100 WBC (Bld) 0.300 % 0.0-0.9 [facility] MCV (mean corpuscular volume ) determinationOrdered By: Lorraine Mena on 12-30-2024 MCV (RBC) [Entitic vol] 88.3 fL 80-94 [facility] Mean corpuscular hemoglobin (MCH) determinationOrdered By: Lorraine Mena on 12-30-2024 MCH (RBC) [Entitic mass] 27.6 pg 27.0-32.0 [facility] Monocyte percentageOrdered B y: Lorraine Mena on 12-30-2024 Monocytes/100 WBC (Bld) 9.6 % 0-10 [facility] Neutrophil percentageOrdered By: Lorraine Mena on 12-30-2024 Neutrophils/100 WBC (Bld) 74.2 % High 47-70 [facility] No Panel InformationOrdered By: Lorraine Mena on 12-30-2024 34 U/L <38 [facility] Platelet countOrdered By: Ledy Mena on 12-30-2024 Platelets (Bld) [#/Vol] 353 10*3/uL 150-450 [facility] Potassium measurement (mass/ volume)Ordered By: Lorraine Mena on 12-30-2024 Potassium (Unsp spec) [Mass/Vol] 4.2 mmol/L 3.3-5.1 [facility] RBC Auto (Bld) [#/Vol]Ordere d By: Lorraine Mena on 12-30-2024 RBC (Bld) [#/Vol] 4.09 10*6/uL Low 4.6-6.2 [facility] Serum creatinine measurement (mass/volume)Ordered By: Lorraine Mena on 12-30-2024 Creatinine [Mass/Vol] 1.19 mg/dL 0.70-1.20 [facility] Serum globulin measurementOr dered By: Lorraine Mena on 12-30-2024 Globulin (S) [Mass/Vol] 2.2 g/dL 2.2-4.2 [facility] Serum glucose measurement (m ass/volume)Ordered By: Lorraine Mena on 12-30-2024 Glucose [Mass/Vol] 105 mg/dL High 70-99 [facility] Serum or plasma alanine saul otransferase (ALT) measurementOrdered By: Lorraine Mena on 12-30-2024 ALT [Catalytic activity/Vol] 34 U/L <47 [facility] Serum or plasma albumin luis urement (mass/volume)Ordered By: Lorraine Mena on 12-30-2024 Albumin [Mass/Vol] 4.0 g/dL 3.4-4.8 [facility] Serum or plasma albumin/glob ulin mass ratioOrdered By: Lorraine Mena on 12-30-2024 Albumin/Globulin [Mass ratio] 1.8 {ratio} 0.9-2.4 [facility] Serum or plasma alkaline kathleen sphatase measurementOrdered By: Lorraine Mena on 12-30-2024 ALP [Catalytic activity/Vol] 62 U/L 40-129 [facility] Serum or plasma calcium luis urement (mass/volume)Ordered By: Lorraine Mena on 12-30-2024 Calcium [Mass/Vol] 9.8 mg/dL 7.6-11.0 [facility] Serum or plasma carbamazepin e level (mass/volume)Ordered By: Lorraine Mena on 12-30-2024 carBAMazepine [Mass/Vol] 10.8 ug/mL 4.0-12.0 [facility] Serum or plasma urea nitroge n measurement (mass/volume)Ordered By: Lorraine Mena on 12-30-2024 Urea nitrogen [Mass/Vol] 24 mg/dL High 4-19 [facility] Sodium levelOrdered By: Roselyn Mena on 12-30-2024 Sodium [Moles/Vol] 140 mmol/L 133-145 [facility] Total proteinOrdered By: David Mena on 12-30-2024 Protein [Mass/Vol] 6.3 g/dL 5.9-8.4 [facility] White blood cell (WBC) count Ordered By: Lorraine Mena on 12-30-2024 WBC (Bld) [#/Vol] 7.5 10*3/uL 4.4-11.0 [facility] Absolute lymphocyte countOrd ered By: Shilpa Contreras on 12-26-2024 Lymphocytes Auto (Unsp spec) [#/Vol] 0.66 10*3/uL Low 0.83-4.51 [facility] Anion gap in Serum or Plasma Ordered By: Shilpa Contreras on 12-26-2024 Anion gap [Moles/Vol] 12 mmol/L 5-15 [facility] Automated lymphocyte count a s percentage of total leukocytesOrdered By: Shilpa Ben on 12-26-2024 Lymphocytes/100 WBC Auto (Unsp spec) 6.5 % Low 19-41 [facility] BUN/creatinine ratioOrdered By: Shilpa Ben on 12-26-2024 Urea nitrogen/Creatinine [Mass ratio] 14.4 mg/mg 10-20 [facility] Basophil percentageOrdered B y: Shilpa Ben on 12-26-2024 Basophils/100 WBC (Bld) 0.3 % 0- [facility] Bilirubin, totalOrdered By: Shilpa Ben on 12-26-2024 Bilirubin [Mass/Vol] 0.23 mg/dL 0.00-1.30 [facility] CBC W/Diff, Automatedon 12-17 Absolute Lymph 0.66 X10 3/uL Low 0.83-4.51 [facility] Comment on above: Performed By: #### L 500.4050, L100.0100 ####[facility] [address] [place], [address] Absolute Neut 8.7 X10 3/uL High 2.0-7.7 [facility] Comment on above: Performed By: #### L 500.4050, L100.0100 ####[facility] [address] [place], [address] Basophils/100 WBC (Bld) 0.3 % Normal 0-1 [facility] Comment on above: Performed By: #### L 500.4050, L100.0100 ####[facility] [address] [place], [address] Eosinophils/100 WBC (Bld) 0.2 % Normal 0-5 [facility] Comment on above: Performed By: #### L 500.4050, L100.0100 ####[facility] [address] [place], [address] Erythrocyte distribution width (RBC) [Ratio] 14.7 % High 11.6-14.6 [facility] Comment on above: Performed By: #### L 500.4050, L100.0100 ####[facility] [address] [place], [address] Hematocrit (Bld) [Volume fraction] 35.8 % Low 40-54 [facility] Comment on above: Performed By: #### L 500.4050, L100.0100 ####[facility] [address] [place], [address] Hemoglobin (Bld) [Mass/Vol] 11.3 g/dL Low 13.0-16.5 [facility] Comment on above: Performed By: #### L 500.4050, L100.0100 ####[facility] [address] [place], [address] IG% 0.500 Normal 0.0-0.9 [facility] Comment on above: Result Comment: IG% - Immature Granulocytes (promyelocytes, myelocytes andmetamyelocytes) > 1% indicates that a LEFT SHIFT is Present. Performed By: #### L 500.4050, L100.0100 ####[facility] [address] [place], [address] Lymphocytes/100 WBC (Bld) 6.5 % Low 19-41 [facility] Comment on above: Performed By: #### L 500.4050, L100.0100 ####[facility] [address] [place], [address] MCH (RBC) [Entitic mass] 27.6 pg Normal 27.0-32.0 [facility] Comment on above: Performed By: #### L 500.4050, L100.0100 ####[facility] [address] [place], [address] MCHC (RBC) [Mass/Vol] 31.6 g/dL Low 32-36 [facility] Comment on above: Performed By: #### L 500.4050, L100.0100 ####[facility] [address] [place], [address] MCV (RBC) [Entitic vol] 87.3 fL Normal 80-94 [facility] Comment on above: Performed By: #### L 500.4050, L100.0100 ####[facility] [address] [place], [address] Monocytes/100 WBC (Bld) 7.8 % Normal 0-10 [facility] Comment on above: Performed By: #### L 500.4050, L100.0100 ####[facility] [address] [place], [address] Neutrophils/100 WBC (Bld) 84.7 % High 47-70 [facility] Comment on above: Performed By: #### L 500.4050, L100.0100 ####[facility] [address] [place], [address] Nucleated RBC (Bld) [#/Vol] 0 10*3/uL Normal 0-5 [facility] Comment on above: Performed By: #### L 500.4050, L100.0100 ####[facility] [address] [place], [address] Platelet mean volume (Bld) [Entitic vol] 10.1 fL Normal 6.2-12.0 [facility] Comment on above: Performed By: #### L 500.4050, L100.0100 ####[facility] [address] [place], [address] Platelets (Bld) [#/Vol] 363 10*3/uL Normal 150-450 [facility] Comment on above: Performed By: #### L 500.4050, L100.0100 ####[facility] [address] [place], [address] RBC (Bld) [#/Vol] 4.10 10*6/uL Low 4.6-6.2 [facility] Comment on above: Performed By: #### L 500.4050, L100.0100 ####[facility] [id number] [place], [address] RDW SD 46.5 fl High 35.1-43.9 [facility] Comment on above: Performed By: #### L 500.4050, L100.0100 ####[facility] [id number] [place], [address] WBC (Bld) [#/Vol] 10.2 10*3/uL Normal 4.4-11.0 [facility] Comment on above: Performed By: #### L 500.4050, L100.0100 ####[facility] [id number] [place], [address] Carbon dioxide, total [Moles /volume] in Central venous bloodOrdered By: Shilpa Ben on 12-26-2024 CO2 [Moles/Vol] 30.3 mmol/L 21.0-32.0 [facility] Chloride assayOrdered By: Kisha solares Ben on 12-26-2024 Chloride [Moles/Vol] 98 mmol/L 98-108 [facility] Comprehensive Metabolic Prof ilon 12-26-2024 Albumin [Mass/Vol] 3.7 g/dL Normal 3.4-4.8 [facility] Comment on above: Performed By: #### L 500.4050, L100.0100 ####[facility] [id number] [place], [address] Albumin/Globulin [Mass ratio] 1.6 {ratio} Normal 0.9-2.4 [facility] Comment on above: Performed By: #### L 500.4050, L100.0100 ####[facility] [address] [place], [address] ALK PHOS 67 U/L Normal 40-129 [facility] Comment on above: Performed By: #### L 500.4050, L100.0100 ####[facility] [address] [place], [address] ALT [Catalytic activity/Vol] 19 U/L Normal <=46 [facility] Comment on above: Performed By: #### L 500.4050, L100.0100 ####[facility] [address] [place], [address] AST [Catalytic activity/Vol] 22 U/L Normal <=37 [facility] Comment on above: Performed By: #### L 500.4050, L100.0100 ####[facility] [address] [place], [address] Bilirubin [Mass/Vol] 0.23 mg/dL Normal 0.00-1.30 [facility] Comment on above: Performed By: #### L 500.4050, L100.0100 ####[facility] [address] [place], [address] BUN/CRE 14.4 RATIO Normal 10-20 [facility] Comment on above: Performed By: #### L 500.4050, L100.0100 ####[facility] [address] [place], [address] Calcium [Mass/Vol] 9.7 mg/dL Normal 7.6-11.0 [facility] Comment on above: Performed By: #### L 500.4050, L100.0100 ####[facility] [address] [place], [address] Chloride [Moles/Vol] 98 mmol/L Normal 98-108 [facility] Comment on above: Performed By: #### L 500.4050, L100.0100 ####[facility] [address] [place], [address] CO2 [Moles/Vol] 30.3 mmol/L Normal 21.0-32.0 [facility] Comment on above: Performed By: #### L 500.4050, L100.0100 ####[facility] [address] [place], [address] Creatinine [Mass/Vol] 1.07 mg/dL Normal 0.70-1.20 [facility] Comment on above: Performed By: #### L 500.4050, L100.0100 ####[facility] [address] [place], [address] ECRCL 57.71 ml/min Normal 50-250 [facility] Comment on above: Performed By: #### L 500.4050, L100.0100 ####[facility] [address] [place], [address] GAP 12 Normal 5-15 [facility] Comment on above: Performed By: #### L 500.4050, L100.0100 ####[facility] [address] [place], [address] GFR/1.73 sq M.predicted among non-blacks MDRD (S/P/Bld) [Vol rate/Area] 72 mL/min/{1.73_m2} Normal >60 [facility] Comment on above: Result Comment: mL/m in/1.73m2 CKD-EPI Creatinine Equation (2020) Performed By: #### L 500.4050, L100.0100 ####[facility] [address] [place], [address] Globulin (S) [Mass/Vol] 2.3 g/dL Normal 2.2-4.2 [facility] Comment on above: Performed By: #### L 500.4050, L100.0100 ####[facility] [address] [place], [address] Glucose [Mass/Vol] 142 mg/dL High 70-99 [facility] Comment on above: Performed By: #### L 500.4050, L100.0100 ####[facility] [address] [place], [address] Potassium [Moles/Vol] 3.4 mmol/L Normal 3.3-5.1 [facility] Comment on above: Performed By: #### L 500.4050, L100.0100 ####[facility] [address] [place], [address] Sodium [Moles/Vol] 140 mmol/L Normal 133-145 [facility] Comment on above: Performed By: #### L 500.4050, L100.0100 ####[facility] [address] [place], [address] T PROT 6.0 g/dL Normal 5.9-8.4 [facility] Comment on above: Performed By: #### L 500.4050, L100.0100 ####[facility] [address] [place], [place], [id number] Urea nitrogen [Mass/Vol] 15 mg/dL Normal 4-19 [facility] Comment on above: Performed By: #### L 500.4050, L100.0100 ####[facility] [address] [place], [place], [address] Eosinophil percentageOrdered By: Shilpa Contreras on 12-26-2024 Eosinophils/100 WBC (Bld) 0.2 % 0-5 [facility] Erythrocyte distribution wid th ratioOrdered By: Ben on 12-26-2024 Erythrocyte distribution width (RBC) [Ratio] 14.7 % High 11.6-14.6 [facility] Erythrocyte distribution wid th standard deviationOrdered By: Shilpa Ben on 12-26-2024 Erythrocyte distribution width (RBC) [Ratio] 46.5 fl High 35.1-43.9 [facility] Glomerular filtration rate ( GFR) estimation/1.73 sq m using serum, plasma, or whole bOrdered By: Shilpa Ben on 12-26-2024 GFR/1.73 sq M.predicted among non-blacks MDRD (S/P/Bld) [Vol rate/Area] 72 mL/min/{1.73_m2} >60 [facility] Hematocrit Auto (Bld) [Volum e fraction]Ordered By: Shilpa Contreras 12-26-2024 Hematocrit (Bld) [Volume fraction] 35.8 % Low 40-54 [facility] Hemoglobin measurementOrdere d By: Shilpa Contreras on 12-26-2024 Hemoglobin (Bld) [Mass/Vol] 11.3 g/dL Low 13.0-16.5 [facility] Immature granulocytes/100 WB C Auto (Bld)Ordered By: Shilpa Ben 12-26-2024 Immature granulocytes/100 WBC (Bld) 0.500 % 0.0-0.9 [facility] MCV (mean corpuscular volume ) determinationOrdered By: Shilpa Contreras 12-26-2024 MCV (RBC) [Entitic vol] 87.3 fL 80-94 [facility] Mean corpuscular hemoglobin (MCH) determinationOrdered By: Shilpa Contreras on 12-26-2024 MCH (RBC) [Entitic mass] 27.6 pg 27.0-32.0 [facility] Monocyte percentageOrdered B y: Shilpa Contreras on 12-26-2024 Monocytes/100 WBC (Bld) 7.8 % 0-10 [facility] Neutrophil percentageOrdered By: Shilpa Ben on 12-26-2024 Neutrophils/100 WBC (Bld) 84.7 % High 47-70 [facility] No Panel InformationOrdered By: Shilpa Contreras on 12-26-2024 22 U/L <38 [facility] Platelet countOrdered By: Kisha solares Ben on 12-26-2024 Platelets (Bld) [#/Vol] 363 10*3/uL 150-450 [facility] Potassium measurement (mass/ volume)Ordered By: Shilpa Contreras on 12-26-2024 Potassium (Unsp spec) [Mass/Vol] 3.4 mmol/L 3.3-5.1 [facility] RBC Auto (Bld) [#/Vol]Ordere d By: Shilpa Contreras on 12-26-2024 RBC (Bld) [#/Vol] 4.10 10*6/uL Low 4.6-6.2 [facility] Serum creatinine measurement (mass/volume)Ordered By: Shilpa Contreras on 12-26-2024 Creatinine [Mass/Vol] 1.07 mg/dL 0.70-1.20 [facility] Serum globulin measurementOr dered By: Shilpa Contreras 12-26-2024 Globulin (S) [Mass/Vol] 2.3 g/dL 2.2-4.2 [facility] Serum glucose measurement (m ass/volume)Ordered By: Shilpa Contreras 12-26-2024 Glucose [Mass/Vol] 142 mg/dL High 70-99 [facility] Serum or plasma alanine saul otransferase (ALT) measurementOrdered By: Shilpa Contreras 12-26-2024 ALT [Catalytic activity/Vol] 19 U/L <47 [facility] Serum or plasma albumin luis urement (mass/volume)Ordered By: Shilpa Contreras on 12-26-2024 Albumin [Mass/Vol] 3.7 g/dL 3.4-4.8 [facility] Serum or plasma albumin/glob ulin mass ratioOrdered By: Shilpa Contreras on 12-26-2024 Albumin/Globulin [Mass ratio] 1.6 {ratio} 0.9-2.4 [facility] Serum or plasma alkaline kathleen sphatase measurementOrdered By: Shilpa Ben on 12-26-2024 ALP [Catalytic activity/Vol] 67 U/L 40-129 [facility] Serum or plasma calcium luis urement (mass/volume)Ordered By: Shilpa Contreras on 12-26-2024 Calcium [Mass/Vol] 9.7 mg/dL 7.6-11.0 [facility] Serum or plasma urea nitroge n measurement (mass/volume)Ordered By: Shilpa Contreras on 12-26-2024 Urea nitrogen [Mass/Vol] 15 mg/dL 4-19 [facility] Sodium levelOrdered By: Rovertou mn Ben on 12-26-2024 Sodium [Moles/Vol] 140 mmol/L 133-145 [facility] Total proteinOrdered By: Roverto umn Ben on 12-26-2024 Protein [Mass/Vol] 6.0 g/dL 5.9-8.4 [facility] White blood cell (WBC) count Ordered By: Shilpa Contreras on 12-26-2024 WBC (Bld) [#/Vol] 10.2 10*3/uL 4.4-11.0 [facility] CBC W/Diff, Automatedon 07-0 Absolute Lymph 0.96 X10 3/uL Normal 0.83-4.51 [facility] Comment on above: Performed By: #### L 501.5200, L100.0100, L500.4050 ####[facility] [address] [place], [address] Absolute Neut 9.8 X10 3/uL High 2.0-7.7 [facility] Comment on above: Performed By: #### L 501.5200, L100.0100, L500.4050 ####[facility] [address] [place], [address] Basophils/100 WBC (Bld) 0.3 % Normal 0-1 [facility] Comment on above: Performed By: #### L 501.5200, L100.0100, L500.4050 ####[facility] [address] [place], [address] Eosinophils/100 WBC (Bld) 0.3 % Normal 0-5 [facility] Comment on above: Performed By: #### L 501.5200, L100.0100, L500.4050 ####[facility] [address] [place], [address] Erythrocyte distribution width (RBC) [Ratio] 14.5 % Normal 11.6-14.6 [facility] Comment on above: Performed By: #### L 501.5200, L100.0100, L500.4050 ####[facility] [address] [place], [address] Hematocrit (Bld) [Volume fraction] 40.5 % Normal 40-54 [facility] Comment on above: Performed By: #### L 501.5200, L100.0100, L500.4050 ####[facility] [address] [place], [address] Hemoglobin (Bld) [Mass/Vol] 12.5 g/dL Low 13.0-16.5 [facility] Comment on above: Performed By: #### L 501.5200, L100.0100, L500.4050 ####[facility] [address] [place], [address] IG% 0.700 Normal 0.0-0.9 [facility] Comment on above: Result Comment: IG% - Immature Granulocytes (promyelocytes, myelocytes andmetamyelocytes) > 1% indicates that a LEFT SHIFT is Present. Performed By: #### L 501.5200, L100.0100, L500.4050 ####[facility] [address] [place], [address] Lymphocytes/100 WBC (Bld) 8.0 % Low 19-41 [facility] Comment on above: Performed By: #### L 501.5200, L100.0100, L500.4050 ####[facility] [address] [place], [address] MCH (RBC) [Entitic mass] 27.4 pg Normal 27.0-32.0 [facility] Comment on above: Performed By: #### L 501.5200, L100.0100, L500.4050 ####[facility] [address] [place], [address] MCHC (RBC) [Mass/Vol] 30.9 g/dL Low 32-36 [facility] Comment on above: Performed By: #### L 501.5200, L100.0100, L500.4050 ####[facility] [address] [place], [address] MCV (RBC) [Entitic vol] 88.6 fL Normal 80-94 [facility] Comment on above: Performed By: #### L 501.5200, L100.0100, L500.4050 ####[facility] [address] [place], [address] Monocytes/100 WBC (Bld) 8.4 % Normal 0-10 [facility] Comment on above: Performed By: #### L 501.5200, L100.0100, L500.4050 ####[facility] [address] [place], [address] Neutrophils/100 WBC (Bld) 82.3 % High 47-70 [facility] Comment on above: Performed By: #### L 501.5200, L100.0100, L500.4050 ####[facility] [address] [place], [address] Nucleated RBC (Bld) [#/Vol] 0 10*3/uL Normal 0-5 [facility] Comment on above: Performed By: #### L 501.5200, L100.0100, L500.4050 ####[facility] [address] [place], [address] Platelet mean volume (Bld) [Entitic vol] 10.2 fL Normal 6.2-12.0 [facility] Comment on above: Performed By: #### L 501.5200, L100.0100, L500.4050 ####[facility] [address] [place], [address] Platelets (Bld) [#/Vol] 449 10*3/uL Normal 150-450 [facility] Comment on above: Performed By: #### L 501.5200, L100.0100, L500.4050 ####[facility] [address] [place], [address] RBC (Bld) [#/Vol] 4.57 10*6/uL Low 4.6-6.2 [facility] Comment on above: Performed By: #### L 501.5200, L100.0100, L500.4050 ####[facility] [address] [place], [address] RDW SD 45.9 fl High 35.1-43.9 [facility] Comment on above: Performed By: #### L 501.5200, L100.0100, L500.4050 ####[facility] [address] [place], [address] WBC (Bld) [#/Vol] 12.0 10*3/uL High 4.4-11.0 [facility] Comment on above: Performed By: #### L 501.5200, L100.0100, L500.4050 ####[facility] [address] [place], [address] Comprehensive Metabolic Prof il12-25-2024 Albumin [Mass/Vol] 4.0 g/dL Normal 3.4-4.8 [facility] Comment on above: Performed By: #### L 501.5200, L100.0100, L500.4050 ####[facility] [address] [place], [address] Albumin/Globulin [Mass ratio] 1.5 {ratio} Normal 0.9-2.4 [facility] Comment on above: Performed By: #### L 501.5200, L100.0100, L500.4050 ####[facility] [address] [place], [address] ALK PHOS 74 U/L Normal 40-129 [facility] Comment on above: Performed By: #### L 501.5200, L100.0100, L500.4050 ####[facility] [address] [place], [address] ALT [Catalytic activity/Vol] 22 U/L Normal <=46 [facility] Comment on above: Performed By: #### L 501.5200, L100.0100, L500.4050 ####[facility] [address] [place], [address] AST [Catalytic activity/Vol] 31 U/L Normal <=37 [facility] Comment on above: Performed By: #### L 501.5200, L100.0100, L500.4050 ####[facility] [address] [place], [address] Bilirubin [Mass/Vol] 0.23 mg/dL Normal 0.00-1.30 [facility] Comment on above: Performed By: #### L 501.5200, L100.0100, L500.4050 ####[facility] [address] [place], [address] BUN/CRE 13.4 RATIO Normal 10-20 [facility] Comment on above: Performed By: #### L 501.5200, L100.0100, L500.4050 ####[facility] [address] [place], [address] Calcium [Mass/Vol] 9.5 mg/dL Normal 7.6-11.0 [facility] Comment on above: Performed By: #### L 501.5200, L100.0100, L500.4050 ####[facility] [address] [place], [address] Chloride [Moles/Vol] 101 mmol/L Normal 98-108 [facility] Comment on above: Performed By: #### L 501.5200, L100.0100, L500.4050 ####[facility] [address] [place], [address] CO2 [Moles/Vol] 27.5 mmol/L Normal 21.0-32.0 [facility] Comment on above: Performed By: #### L 501.5200, L100.0100, L500.4050 ####[facility] [address] [place], [address] Creatinine [Mass/Vol] 1.05 mg/dL Normal 0.70-1.20 [facility] Comment on above: Performed By: #### L 501.5200, L100.0100, L500.4050 ####[facility] [address] [place], [address] ECRCL 58.81 ml/min Normal 50-250 [facility] Comment on above: Performed By: #### L 501.5200, L100.0100, L500.4050 ####[facility] [address] [place], [address] GAP 12 Normal 5-15 [facility] Comment on above: Performed By: #### L 501.5200, L100.0100, L500.4050 ####[facility] [address] [place], [address] GFR/1.73 sq M.predicted among non-blacks MDRD (S/P/Bld) [Vol rate/Area] 74 mL/min/{1.73_m2} Normal >60 [facility] Comment on above: Result Comment: mL/m in/1.73m2 CKD-EPI Creatinine Equation (2020) Performed By: #### L 501.5200, L100.0100, L500.4050 ####[facility] [address] [place], [address] Globulin (S) [Mass/Vol] 2.7 g/dL Normal 2.2-4.2 [facility] Comment on above: Performed By: #### L 501.5200, L100.0100, L500.4050 ####[facility] [address] [place], [address] Glucose [Mass/Vol] 118 mg/dL High 70-99 [facility] Comment on above: Performed By: #### L 501.5200, L100.0100, L500.4050 ####[facility] [address] [place], [address] Potassium [Moles/Vol] 3.3 mmol/L Normal 3.3-5.1 [facility] Comment on above: Performed By: #### L 501.5200, L100.0100, L500.4050 ####[facility] [address] [place], [address] Sodium [Moles/Vol] 141 mmol/L Normal 133-145 [facility] Comment on above: Performed By: #### L 501.5200, L100.0100, L500.4050 ####[facility] [address] [place], [address] T PROT 6.7 g/dL Normal 5.9-8.4 [facility] Comment on above: Performed By: #### L 501.5200, L100.0100, L500.4050 ####[facility] [address] [place], [address] Urea nitrogen [Mass/Vol] 14 mg/dL Normal 4-19 [facility] Comment on above: Performed By: #### L 501.5200, L100.0100, L500.4050 ####[facility] [address] [place], [address] Magnesiumon 12-25-2024 Magnesium [Mass/Vol] 2.3 mg/dL High 1.5-2.2 [facility] Comment on above: Performed By: #### L 501.5200, L100.0100, L500.4050 ####[facility] [address] [place], [address] Magnesium measurement (mass/ volume)Ordered By: Sania Peña on 12-25-2024 Magnesium (Unsp spec) [Mass/Vol] 2.3 mg/dL High 1.5-2.2 [facility] Phosphoruson 12-25-2024 Phosphate [Mass/Vol] 2.0 mg/dL Low 2.7-4.5 [facility] Comment on above: Performed By: #### L 501.2300 ####[facility] [address] [place], [address] CBC W/Diff, Automatedon 07-0 Absolute Lymph 0.72 X10 3/uL Low 0.83-4.51 [facility] Comment on above: Performed By: #### L 100.0100, L500.4050 ####[facility] [address] [place], [address] Absolute Neut 7.0 X10 3/uL Normal 2.0-7.7 [facility] Comment on above: Performed By: #### L 100.0100, L500.4050 ####[facility] [address] [place], [address] Basophils/100 WBC (Bld) 0.5 % Normal 0-1 [facility] Comment on above: Performed By: #### L 100.0100, L500.4050 ####[facility] [address] [place], [address] Eosinophils/100 WBC (Bld) 0.4 % Normal 0-5 [facility] Comment on above: Performed By: #### L 100.0100, L500.4050 ####[facility] [address] [place], [address] Erythrocyte distribution width (RBC) [Ratio] 14.6 % Normal 11.6-14.6 [facility] Comment on above: Performed By: #### L 100.0100, L500.4050 ####[facility] [address] [place], [address] Hematocrit (Bld) [Volume fraction] 37.0 % Low 40-54 [facility] Comment on above: Performed By: #### L 100.0100, L500.4050 ####[facility] [address] [place], [address] Hemoglobin (Bld) [Mass/Vol] 11.5 g/dL Low 13.0-16.5 [facility] Comment on above: Performed By: #### L 100.0100, L500.4050 ####[facility] [address] [place], [address] IG% 0.500 Normal 0.0-0.9 [facility] Comment on above: Result Comment: IG% - Immature Granulocytes (promyelocytes, myelocytes andmetamyelocytes) > 1% indicates that a LEFT SHIFT is Present. Performed By: #### L 100.0100, L500.4050 ####[facility] [address] [place], [address] Lymphocytes/100 WBC (Bld) 8.5 % Low 19-41 [facility] Comment on above: Performed By: #### L 100.0100, L500.4050 ####[facility] [address] [place], [address] MCH (RBC) [Entitic mass] 27.7 pg Normal 27.0-32.0 [facility] Comment on above: Performed By: #### L 100.0100, L500.4050 ####[facility] [address] [place], [address] MCHC (RBC) [Mass/Vol] 31.1 g/dL Low 32-36 [facility] Comment on above: Performed By: #### L 100.0100, L500.4050 ####[facility] [address] [place], [address] MCV (RBC) [Entitic vol] 89.2 fL Normal 80-94 [facility] Comment on above: Performed By: #### L 100.0100, L500.4050 ####[facility] [address] [place], [address] Monocytes/100 WBC (Bld) 7.7 % Normal 0-10 [facility] Comment on above: Performed By: #### L 100.0100, L500.4050 ####[facility] [address] [place], [address] Neutrophils/100 WBC (Bld) 82.4 % High 47-70 [facility] Comment on above: Performed By: #### L 100.0100, L500.4050 ####[facility] [address] [place], [address] Nucleated RBC (Bld) [#/Vol] 0 10*3/uL Normal 0-5 [facility] Comment on above: Performed By: #### L 100.0100, L500.4050 ####[facility] [address] [place], [address] Platelet mean volume (Bld) [Entitic vol] 9.7 fL Normal 6.2-12.0 [facility] Comment on above: Performed By: #### L 100.0100, L500.4050 ####[facility] [address] [place], [address] Platelets (Bld) [#/Vol] 380 10*3/uL Normal 150-450 [facility] Comment on above: Performed By: #### L 100.0100, L500.4050 ####[facility] [address] [place], [address] RBC (Bld) [#/Vol] 4.15 10*6/uL Low 4.6-6.2 [facility] Comment on above: Performed By: #### L 100.0100, L500.4050 ####[facility] [address] [place], [address] RDW SD 46.6 fl High 35.1-43.9 [facility] Comment on above: Performed By: #### L 100.0100, L500.4050 ####[facility] [address] [place], [address] WBC (Bld) [#/Vol] 8.5 10*3/uL Normal 4.4-11.0 [facility] Comment on above: Performed By: #### L 100.0100, L500.4050 ####[facility] [address] [place], [address] Comprehensive Metabolic Prof [facility] 12-24-2024 Albumin [Mass/Vol] 3.8 g/dL Normal 3.4-4.8 [facility] Comment on above: Performed By: #### L 100.0100, L500.4050 ####[facility] [facility] [address] [place], [address] Albumin/Globulin [Mass ratio] 1.8 {ratio} Normal 0.9-2.4 [facility] Comment on above: Performed By: #### L 100.0100, L500.4050 ####[facility] [address] [place], [address] ALK PHOS 64 U/L Normal 40-129 [facility] Comment on above: Performed By: #### L 100.0100, L500.4050 ####[facility] [address] [place], [address] ALT [Catalytic activity/Vol] 28 U/L Normal <=46 [facility] Comment on above: Performed By: #### L 100.0100, L500.4050 ####[facility] [address] [place], [address] AST [Catalytic activity/Vol] 23 U/L Normal <=37 [facility] Comment on above: Performed By: #### L 100.0100, L500.4050 ####[facility] [address] [place], [address] Bilirubin [Mass/Vol] 0.25 mg/dL Normal 0.00-1.30 [facility] Comment on above: Performed By: #### L 100.0100, L500.4050 ####[facility] [address] [place], [address] BUN/CRE 16.9 RATIO Normal 10-20 [facility] Comment on above: Performed By: #### L 100.0100, L500.4050 ####[facility] [address] [place], [address] Calcium [Mass/Vol] 8.4 mg/dL Normal 7.6-11.0 [facility] Comment on above: Performed By: #### L 100.0100, L500.4050 ####[facility] [address] [place], [address] Chloride [Moles/Vol] 106 mmol/L Normal 98-108 [facility] Comment on above: Performed By: #### L 100.0100, L500.4050 ####[facility] [address] [place], [address] CO2 [Moles/Vol] 23.1 mmol/L Normal 21.0-32.0 [facility] Comment on above: Performed By: #### L 100.0100, L500.4050 ####[facility] [address] [place], [address] Creatinine [Mass/Vol] 0.98 mg/dL Normal 0.70-1.20 [facility] Comment on above: Performed By: #### L 100.0100, L500.4050 ####[facility] [address] [place], [address] ECRCL 63.01 ml/min Normal 50-250 [facility] Comment on above: Performed By: #### L 100.0100, L500.4050 ####[facility] [address] [place], [address] GAP 11 Normal 5-15 [facility] Comment on above: Performed By: #### L 100.0100, L500.4050 ####[facility] [address] [place], [address] GFR/1.73 sq M.predicted among non-blacks MDRD (S/P/Bld) [Vol rate/Area] 81 mL/min/{1.73_m2} Normal >60 [facility] Comment on above: Result Comment: mL/m in/1.73m2 CKD-EPI Creatinine Equation (2020) Performed By: #### L 100.0100, L500.4050 ####[facility] [address] [place], [address] Globulin (S) [Mass/Vol] 2.2 g/dL Normal 2.2-4.2 [facility] Comment on above: Performed By: #### L 100.0100, L500.4050 ####[facility] [address] [place], [address] Glucose [Mass/Vol] 92 mg/dL Normal 70-99 [facility] [facility] Comment on above: Performed By: #### L 100.0100, L500.4050 ####[facility] [address] [place], [address] Potassium [Moles/Vol] 3.9 mmol/L Normal 3.3-5.1 [facility] Comment on above: Performed By: #### L 100.0100, L500.4050 ####[facility] [address] [place], [address] Sodium [Moles/Vol] 140 mmol/L Normal 133-145 [facility] Comment on above: Performed By: #### L 100.0100, L500.4050 ####[facility] [address] [place], [address] T PROT 6.0 g/dL Normal 5.9-8.4 [facility] Comment on above: Performed By: #### L 100.0100, L500.4050 ####[facility] [address] [place], [address] Urea nitrogen [Mass/Vol] 17 mg/dL Normal 4-19 [facility] Comment on above: Performed By: #### L 100.0100, L500.4050 ####[facility] [address] [place], [address] Basic Metabolic Profile (BMP )on 12-23-2024 BUN/CRE 16.4 RATIO Normal 10-20 [facility] Comment on above: Performed By: #### L 500.2500, L100.0500 ####[facility] [address] [place], [address] Calcium [Mass/Vol] 8.4 mg/dL Normal 7.6-11.0 [facility] Comment on above: Performed By: #### L 500.2500, L100.0500 ####[facility] [address] [place], [address] Chloride [Moles/Vol] 104 mmol/L Normal 98-108 [facility] Comment on above: Performed By: #### L 500.2500, L100.0500 ####[facility] [address] [place], [address] CO2 [Moles/Vol] 24.1 mmol/L Normal 21.0-32.0 [facility] Comment on above: Performed By: #### L 500.2500, L100.0500 ####[facility] [address] [place], [address] Creatinine [Mass/Vol] 1.02 mg/dL Normal 0.70-1.20 [facility] Comment on above: Performed By: #### L 500.2500, L100.0500 ####[facility] [address] [place], [address] ECRCL 60.54 ml/min Normal 50-250 [facility] Comment on above: Performed By: #### L 500.2500, L100.0500 ####[facility] [address] [place], [address] GAP 11 Normal 5-15 [facility] Comment on above: Performed By: #### L 500.2500, L100.0500 ####[facility] [address] [place], [address] GFR/1.73 sq M.predicted among non-blacks MDRD (S/P/Bld) [Vol rate/Area] 77 mL/min/{1.73_m2} Normal >60 [facility] Comment on above: Result Comment: mL/m in/1.73m2 CKD-EPI Creatinine Equation (2020) Performed By: #### L 500.2500, L100.0500 ####[facility] [address] [place], [address] Glucose [Mass/Vol] 85 mg/dL Normal 70-99 [facility] Comment on above: Performed By: #### L 500.2500, L100.0500 ####[facility] [address] [place], [address] Potassium [Moles/Vol] 3.8 mmol/L Normal 3.3-5.1 [facility] Comment on above: Performed By: #### L 500.2500, L100.0500 ####[facility] [address] [place], [address] Sodium [Moles/Vol] 139 mmol/L Normal 133-145 [facility] Comment on above: Performed By: #### L 500.2500, L100.0500 ####[facility] [address] [place], [address] Urea nitrogen [Mass/Vol] 17 mg/dL Normal 4-19 [facility] Comment on above: Performed By: #### L 500.2500, L100.0500 ####[facility] [address] [place], [address] CBC-Complete Blood Cnt No Di ffon 12-23-2024 Erythrocyte distribution width (RBC) [Ratio] 14.1 % Normal 11.6-14.6 [facility] Comment on above: Performed By: #### L 500.2500, L100.0500 ####[facility] [address] [place], [address] Hematocrit (Bld) [Volume fraction] 36.3 % Low 40-54 [facility] Comment on above: Performed By: #### L 500.2500, L100.0500 ####[facility] [address] [place], [address] Hemoglobin (Bld) [Mass/Vol] 11.2 g/dL Low 13.0-16.5 [facility] Comment on above: Performed By: #### L 500.2500, L100.0500 ####[facility] [address] [place], [address] MCH (RBC) [Entitic mass] 27.7 pg Normal 27.0-32.0 [facility] Comment on above: Performed By: #### L 500.2500, L100.0500 ####[facility] [address] [place], [address] MCHC (RBC) [Mass/Vol] 30.9 g/dL Low 32-36 [facility] Comment on above: Performed By: #### L 500.2500, L100.0500 ####[facility] [address] [place], [address] MCV (RBC) [Entitic vol] 89.9 fL Normal 80-94 [facility] Comment on above: Performed By: #### L 500.2500, L100.0500 ####[facility] [address] [place], [address] Platelet mean volume (Bld) [Entitic vol] 10.0 fL Normal 6.2-12.0 [facility] Comment on above: Performed By: #### L 500.2500, L100.0500 ####[facility] [address] [place], [address] Platelets (Bld) [#/Vol] 376 10*3/uL Normal 150-450 [facility] Comment on above: Performed By: #### L 500.2500, L100.0500 ####[facility] [address] [place], [address] RBC (Bld) [#/Vol] 4.04 10*6/uL Low 4.6-6.2 [facility] Comment on above: Performed By: #### L 500.2500, L100.0500 ####[facility] [address] [place], [address] RDW SD 46.0 fl High 35.1-43.9 [facility] Comment on above: Performed By: #### L 500.2500, L100.0500 ####[facility] [address] [place], [address] WBC (Bld) [#/Vol] 7.5 10*3/uL Normal 4.4-11.0 [facility] Comment on above: Performed By: #### L 500.2500, L100.0500 ####[facility] [address] [place], [address] Duplex ultrasound of carotid artery reportOrdered By: Raul Jensen on 12-23-[address] [facility] Work Phone: EGD Reporton 12-23-[address] [facility] MR/POSTOP.ANEon 12-23-2024 MR/POSTOP.ANE Normal [facility] MR/FMXKYVNH7ca 12-23-2024 MR/POSTOPAN2 Normal [facility] Basic Metabolic Profile (BMP )on 12-22-2024 BUN/CRE 15.7 RATIO Normal 10-20 [facility] Comment on above: Performed By: #### L 500.2500, L100.0500 ####[facility] [address] [place], [address] Calcium [Mass/Vol] 8.8 mg/dL Normal 7.6-11.0 [facility] Comment on above: Performed By: #### L 500.2500, L100.0500 ####[facility] [address] [place], [address] Chloride [Moles/Vol] 103 mmol/L Normal 98-108 [facility] Comment on above: Performed By: #### L 500.2500, L100.0500 ####[facility] [address] [place], [address] CO2 [Moles/Vol] 24.6 mmol/L Normal 21.0-32.0 [facility] Comment on above: Performed By: #### L 500.2500, L100.0500 ####[facility] [address] [place], [address] Creatinine [Mass/Vol] 1.03 mg/dL Normal 0.70-1.20 [facility] Comment on above: Performed By: #### L 500.2500, L100.0500 ####[facility] [address] [place], [address] ECRCL 59.95 ml/min Normal 50-250 [facility] Comment on above: Performed By: #### L 500.2500, L100.0500 ####[facility] [address] [place], [address] GAP 11 Normal 5-15 [facility] Comment on above: Performed By: #### L 500.2500, L100.0500 ####[facility] [address] [place], [address] GFR/1.73 sq M.predicted among non-blacks MDRD (S/P/Bld) [Vol rate/Area] 76 mL/min/{1.73_m2} Normal >60 [facility] Comment on above: Result Comment: mL/m in/1.73m2 CKD-EPI Creatinine Equation (2020) Performed By: #### L 500.2500, L100.0500 ####[facility] [address] [place], [address] Glucose [Mass/Vol] 84 mg/dL Normal 70-99 [facility] Comment on above: Performed By: #### L 500.2500, L100.0500 ####[facility] [address] [place], [address] Potassium [Moles/Vol] 3.6 mmol/L Normal 3.3-5.1 [facility] Comment on above: Performed By: #### L 500.2500, L100.0500 ####[facility] [address] [place], [address] Sodium [Moles/Vol] 139 mmol/L Normal 133-145 [facility] Comment on above: Performed By: #### L 500.2500, L100.0500 ####[facility] [address] [place], [address] Urea nitrogen [Mass/Vol] 16 mg/dL Normal 4-19 [facility] Comment on above: Performed By: #### L 500.2500, L100.0500 ####[facility] [address] [place], [address] CBC-Complete Blood Cnt No Di ffon 12-22-2024 Erythrocyte distribution width (RBC) [Ratio] 13.8 % Normal 11.6-14.6 [facility] Comment on above: Performed By: #### L 500.2500, L100.0500 ####[facility] [address] [place], [address] Hematocrit (Bld) [Volume fraction] 37.7 % Low 40-54 [facility] Comment on above: Performed By: #### L 500.2500, L100.0500 ####[facility] [address] [place], [address] Hemoglobin (Bld) [Mass/Vol] 11.7 g/dL Low 13.0-16.5 [facility] Comment on above: Performed By: #### L 500.2500, L100.0500 ####[facility] [address] [place], [address] MCH (RBC) [Entitic mass] 27.7 pg Normal 27.0-32.0 [facility] Comment on above: Performed By: #### L 500.2500, L100.0500 ####[facility] [address] [place], [address] MCHC (RBC) [Mass/Vol] 31.0 g/dL Low 32-36 [facility] Comment on above: Performed By: #### L 500.2500, L100.0500 ####[facility] [address] [place], [address] MCV (RBC) [Entitic vol] 89.1 fL Normal 80-94 [facility] Comment on above: Performed By: #### L 500.2500, L100.0500 ####[facility] [address] [place], [address] Platelet mean volume (Bld) [Entitic vol] 10.1 fL Normal 6.2-12.0 [facility] Comment on above: Performed By: #### L 500.2500, L100.0500 ####[facility] [address] [place], [address] Platelets (Bld) [#/Vol] 392 10*3/uL Normal 150-450 [facility] Comment on above: Performed By: #### L 500.2500, L100.0500 ####[facility] [address] [place], [address] RBC (Bld) [#/Vol] 4.23 10*6/uL Low 4.6-6.2 [facility] Comment on above: Performed By: #### L 500.2500, L100.0500 ####[facility] [address] [place], [address] RDW SD 45.0 fl High 35.1-43.9 [facility] Comment on above: Performed By: #### L 500.2500, L100.0500 ####[facility] [address] [place], [address] WBC (Bld) [#/Vol] 7.5 10*3/uL Normal 4.4-11.0 [facility] Comment on above: Performed By: #### L 500.2500, L100.0500 ####[facility] [address] [place], [address] Basic Metabolic Profile (BMP )on 12-21-2024 BUN/CRE 16.2 RATIO Normal 10-20 [facility] Comment on above: Performed By: #### L 100.0100, L500.2500 ####[facility] [address] [place], [address] Calcium [Mass/Vol] 8.3 mg/dL Normal 7.6-11.0 [facility] Comment on above: Performed By: #### L 100.0100, L500.2500 ####[facility] [address] [place], [address] Chloride [Moles/Vol] 105 mmol/L Normal 98-108 [facility] Comment on above: Performed By: #### L 100.0100, L500.2500 ####[facility] [address] [place], [address] CO2 [Moles/Vol] 25.0 mmol/L Normal 21.0-32.0 [facility] Comment on above: Performed By: #### L 100.0100, L500.2500 ####[facility] [address] [place], [address] Creatinine [Mass/Vol] 0.99 mg/dL Normal 0.70-1.20 [facility] Comment on above: Performed By: #### L 100.0100, L500.2500 ####[facility] [address] [place], [address] ECRCL 62.37 ml/min Normal 50-250 [facility] Comment on above: Performed By: #### L 100.0100, L500.2500 ####[facility] [address] [place], [address] GAP 9 Normal 5-15 [facility] Comment on above: Performed By: #### L 100.0100, L500.2500 ####[facility] [address] [place], [address] GFR/1.73 sq M.predicted among non-blacks MDRD (S/P/Bld) [Vol rate/Area] 80 mL/min/{1.73_m2} Normal >60 [facility] Comment on above: Result Comment: mL/m in/1.73m2 CKD-EPI Creatinine Equation (2020) Performed By: #### L 100.0100, L500.2500 ####[facility] [address] [place], [address] Glucose [Mass/Vol] 95 mg/dL Normal 70-99 [facility] Comment on above: Performed By: #### L 100.0100, L500.2500 ####[facility] [address] [place], [address] Potassium [Moles/Vol] 3.5 mmol/L Normal 3.3-5.1 [facility] Comment on above: Performed By: #### L 100.0100, L500.2500 ####[facility] [address] [place], [address] Sodium [Moles/Vol] 139 mmol/L Normal 133-145 [facility] Comment on above: Performed By: #### L 100.0100, L500.2500 ####[facility] [address] [place], [address] Urea nitrogen [Mass/Vol] 16 mg/dL Normal 4-19 [facility] Comment on above: Performed By: #### L 100.0100, L500.2500 ####[facility] [address] [place], [address] CBC W/Diff, Automatedon 07-0 5-2025 Absolute Lymph 0.95 X10 3/uL Normal 0.83-4.51 [facility] Comment on above: Performed By: #### L 100.0100, L500.2500 ####[facility] [address] [place], [address] Absolute Neut 5.0 X10 3/uL Normal 2.0-7.7 [facility] Comment on above: Performed By: #### L 100.0100, L500.2500 ####[facility] [address] [place], [address] Basophils/100 WBC (Bld) 0.6 % Normal 0-1 [facility] Comment on above: Performed By: #### L 100.0100, L500.2500 ####[facility] [address] [place], [address] Eosinophils/100 WBC (Bld) 1.2 % Normal 0-5 [facility] Comment on above: Performed By: #### L 100.0100, L500.2500 ####[facility] [address] [place], [address] Erythrocyte distribution width (RBC) [Ratio] 13.7 % Normal 11.6-14.6 [facility] Comment on above: Performed By: #### L 100.0100, L500.2500 ####[facility] [address] [place], [address] Hematocrit (Bld) [Volume fraction] 33.8 % Low 40-54 [facility] Comment on above: Performed By: #### L 100.0100, L500.2500 ####[facility] [address] [place], [address] Hemoglobin (Bld) [Mass/Vol] 10.4 g/dL Low 13.0-16.5 [facility] Comment on above: Performed By: #### L 100.0100, L500.2500 ####[facility] [address] [place], [address] IG% 0.400 Normal 0.0-0.9 [facility] Comment on above: Result Comment: IG% - Immature Granulocytes (promyelocytes, myelocytes andmetamyelocytes) > 1% indicates that a LEFT SHIFT is Present. Performed By: #### L 100.0100, L500.2500 ####[facility] [address] [place], [address] Lymphocytes/100 WBC (Bld) 14.2 % Low 19-41 [facility] Comment on above: Performed By: #### L 100.0100, L500.2500 ####[facility] [address] [place], [address] MCH (RBC) [Entitic mass] 27.6 pg Normal 27.0-32.0 [facility] Comment on above: Performed By: #### L 100.0100, L500.2500 ####[facility] [address] [place], [address] MCHC (RBC) [Mass/Vol] 30.8 g/dL Low 32-36 [facility] Comment on above: Performed By: #### L 100.0100, L500.2500 ####[facility] [address] [place], [address] MCV (RBC) [Entitic vol] 89.7 fL Normal 80-94 [facility] Comment on above: Performed By: #### L 100.0100, L500.2500 ####[facility] [address] [place], [address] Monocytes/100 WBC (Bld) 8.5 % Normal 0-10 [facility] Comment on above: Performed By: #### L 100.0100, L500.2500 ####[facility] [address] [place], [address] Neutrophils/100 WBC (Bld) 75.1 % High 47-70 [facility] Comment on above: Performed By: #### L 100.0100, L500.2500 ####[facility] [address] [place], [address] Nucleated RBC (Bld) [#/Vol] 0 10*3/uL Normal 0-5 [facility] Comment on above: Performed By: #### L 100.0100, L500.2500 ####[facility] [address] [place], [address] Platelet mean volume (Bld) [Entitic vol] 9.7 fL Normal 6.2-12.0 [facility] Comment on above: Performed By: #### L 100.0100, L500.2500 ####[facility] [address] [place], [address] Platelets (Bld) [#/Vol] 326 10*3/uL Normal 150-450 [facility] Comment on above: Performed By: #### L 100.0100, L500.2500 ####[facility] [address] [place], [address] RBC (Bld) [#/Vol] 3.77 10*6/uL Low 4.6-6.2 [facility] Comment on above: Performed By: #### L 100.0100, L500.2500 ####[facility] [address] [place], [address] RDW SD 44.7 fl High 35.1-43.9 [facility] Comment on above: Performed By: #### L 100.0100, L500.2500 ####[facility] [address] [place], [address] WBC (Bld) [#/Vol] 6.7 10*3/uL Normal 4.4-11.0 [facility] Comment on above: Performed By: #### L 100.0100, L500.2500 ####[facility] [address] [place], [address] CBC W/Diff, Automatedon 07-0 4-202 Absolute Lymph 0.69 X10 3/uL Low 0.83-4.51 [facility] Comment on above: Performed By: #### L 100.0100 ####[facility] [address] [place], [address] Absolute Neut 5.5 X10 3/uL Normal 2.0-7.7 [facility] Comment on above: Performed By: #### L 100.0100 ####[facility] [address] [place], [address] Basophils/100 WBC (Bld) 0.9 % Normal 0-1 [facility] Comment on above: Performed By: #### L 100.0100 ####[facility] [address] [place], [address] Eosinophils/100 WBC (Bld) 1.2 % Normal 0-5 [facility] Comment on above: Performed By: #### L 100.0100 ####[facility] [address] [place], [address] Erythrocyte distribution width (RBC) [Ratio] 13.7 % Normal 11.6-14.6 [facility] Comment on above: Performed By: #### L 100.0100 ####[facility] [address] [place], [address] Hematocrit (Bld) [Volume fraction] 35.7 % Low 40-54 [facility] Comment on above: Performed By: #### L 100.0100 ####[facility] [address] [place], [address] Hemoglobin (Bld) [Mass/Vol] 10.9 g/dL Low 13.0-16.5 [facility] Comment on above: Performed By: #### L 100.0100 ####[facility] [address] [place], [address] IG% 0.400 Normal 0.0-0.9 [facility] Comment on above: Result Comment: IG% - Immature Granulocytes (promyelocytes, myelocytes andmetamyelocytes) > 1% indicates that a LEFT SHIFT is Present. Performed By: #### L 100.0100 ####[facility] [address] [place], [address] Lymphocytes/100 WBC (Bld) 9.9 % Low 19-41 [facility] Comment on above: Performed By: #### L 100.0100 ####[facility] [address] [place], [address] MCH (RBC) [Entitic mass] 27.3 pg Normal 27.0-32.0 [facility] Comment on above: Performed By: #### L 100.0100 ####[facility] [address] [place], [address] MCHC (RBC) [Mass/Vol] 30.5 g/dL Low 32-36 [facility] Comment on above: Performed By: #### L 100.0100 ####[facility] [address] [place], [address] MCV (RBC) [Entitic vol] 89.5 fL Normal 80-94 [facility] Comment on above: Performed By: #### L 100.0100 ####[facility] [address] [place], [address] Monocytes/100 WBC (Bld) 8.5 % Normal 0-10 [facility] Comment on above: Performed By: #### L 100.0100 ####[facility] [address] [place], [address] Neutrophils/100 WBC (Bld) 79.1 % High 47-70 [facility] Comment on above: Performed By: #### L 100.0100 ####[facility] [address] [place], [address] Nucleated RBC (Bld) [#/Vol] 0 10*3/uL Normal 0-5 [facility] Comment on above: Performed By: #### L 100.0100 ####[facility] [address] [place], [address] Platelet mean volume (Bld) [Entitic vol] 10.0 fL Normal 6.2-12.0 [facility] Comment on above: Performed By: #### L 100.0100 ####[facility] [address] [place], [address] Platelets (Bld) [#/Vol] 355 10*3/uL Normal 150-450 [facility] Comment on above: Performed By: #### L 100.0100 ####[facility] [address] [place], [address] RBC (Bld) [#/Vol] 3.99 10*6/uL Low 4.6-6.2 [facility] Comment on above: Performed By: #### L 100.0100 ####[facility] [address] [place], [address] RDW SD 44.4 fl High 35.1-43.9 [facility] Comment on above: Performed By: #### L 100.0100 ####[facility] [address] [place], [address] WBC (Bld) [#/Vol] 6.9 10*3/uL Normal 4.4-11.0 [facility] Comment on above: Performed By: #### L 100.0100 ####[facility] [address] [place], [address] Carotid Duplex Ultrasoundon 12-20-20[address] Car[address] Ul[address]ound Normal [facility] Vitamin B12on 12-20-2024 Cobalamin (Vitamin B12) [Mass/Vol] 774 pg/mL Normal 180-914 [facility] Comment on above: Performed By: #### L 503.0106 ####[facility] [address] [place], [address] Vitamin B12 ser/plasOrdered By: Lisha Talamantes on 12-20-2024 Cobalamin (Vitamin B12) [Mass/Vol] 774 pg/mL 180-914 [facility] CBC W/Diff, Automatedon 07- Absolute Lymph 0.67 X10 3/uL Low 0.83-4.51 [facility] Comment on above: Performed By: #### L 100.0100, L500.4050 ####[facility] [address] [place], [address] Absolute Neut 6.0 X10 3/uL Normal 2.0-7.7 [facility] Comment on above: Performed By: #### L 100.0100, L500.4050 ####[facility] [address] [place], [address] Basophils/100 WBC (Bld) 0.8 % Normal 0-1 [facility] Comment on above: Performed By: #### L 100.0100, L500.4050 ####[facility] [address] [place], [address] Eosinophils/100 WBC (Bld) 1.9 % Normal 0-5 [facility] Comment on above: Performed By: #### L 100.0100, L500.4050 ####[facility] [address] [place], [address] Erythrocyte distribution width (RBC) [Ratio] 13.6 % Normal 11.6-14.6 [facility] Comment on above: Performed By: #### L 100.0100, L500.4050 ####[facility] [address] [place], [address] Hematocrit (Bld) [Volume fraction] 39.1 % Low 40-54 [facility] Comment on above: Performed By: #### L 100.0100, L500.4050 ####[facility] [address] [place], [address] Hemoglobin (Bld) [Mass/Vol] 11.9 g/dL Low 13.0-16.5 [facility] Comment on above: Performed By: #### L 100.0100, L500.4050 ####[facility] [address] [place], [address] IG% 0.400 Normal 0.0-0.9 [facility] Comment on above: Result Comment: IG% - Immature Granulocytes (promyelocytes, myelocytes andmetamyelocytes) > 1% indicates that a LEFT SHIFT is Present. Performed By: #### L 100.0100, L500.4050 ####[facility] [address] [place], [address] Lymphocytes/100 WBC (Bld) 9.0 % Low 19-41 [facility] Comment on above: Performed By: #### L 100.0100, L500.4050 ####[facility] [address] [place], [address] MCH (RBC) [Entitic mass] 27.5 pg Normal 27.0-32.0 [facility] Comment on above: Performed By: #### L 100.0100, L500.4050 ####[facility] [address] [place], [address] MCHC (RBC) [Mass/Vol] 30.4 g/dL Low 32-36 [facility] Comment on above: Performed By: #### L 100.0100, L500.4050 ####[facility] [address] [place], [address] MCV (RBC) [Entitic vol] 90.5 fL Normal [address] [facility] Comment on above: Performed By: #### L 100.0100, L500.4050 ####[facility] [address] [place], [address] Monocytes/100 WBC (Bld) 6.6 % Normal 0-10 [facility] Comment on above: Performed By: #### L 100.0100, L500.4050 ####[facility] [address] [place], [address] Neutrophils/100 WBC (Bld) 81.3 % High 47-70 [facility] Comment on above: Performed By: #### L 100.0100, L500.4050 ####[facility] [address] [place], [address] Nucleated RBC (Bld) [#/Vol] 0 10*3/uL Normal 0-5 [facility] Comment on above: Performed By: #### L 100.0100, L500.4050 ####[facility] [address] [place], [address] Platelet mean volume (Bld) [Entitic vol] 9.6 fL Normal 6.2-12.0 [facility] Comment on above: Performed By: #### L 100.0100, L500.4050 ####[facility] [address] [place], [address] Platelets (Bld) [#/Vol] 375 10*3/uL Normal 150-450 [facility] Comment on above: Performed By: #### L 100.0100, L500.4050 ####[facility] [address] [place], [address] RBC (Bld) [#/Vol] 4.32 10*6/uL Low 4.6-6.2 [facility] Comment on above: Performed By: #### L 100.0100, L500.4050 ####[facility] [address] [place], [address] RDW SD 44.8 fl High 35.1-43.9 [facility] Comment on above: Performed By: #### L 100.0100, L500.4050 ####[facility] [address] [place], [address] WBC (Bld) [#/Vol] 7.4 10*3/uL Normal 4.4-11.0 [facility] Comment on above: Performed By: #### L 100.0100, L500.4050 ####[facility] [address] [place], [address] CDIFF (PCR)on 12-19-[address] [facility] Comment on above: Performed By: #### M 100.6796 ####[facility] [address] [place], [address] Comprehensive Metabolic Prof ilon 12-19-2024 Albumin [Mass/Vol] 4.3 g/dL Normal 3.4-4.8 [facility] Comment on above: Performed By: #### L 100.0100, L500.4050 ####[facility] [address] [place], [address] Albumin/Globulin [Mass ratio] 1.5 {ratio} Normal 0.9-2.4 [facility] Comment on above: Performed By: #### L 100.0100, L500.4050 ####[facility] [address] [place], [address] ALK PHOS 69 U/L Normal 40-129 [facility] Comment on above: Performed By: #### L 100.0100, L500.4050 ####[facility] [address] [place], [address] ALT [Catalytic activity/Vol] 25 U/L Normal <=46 [facility] Comment on above: Performed By: #### L 100.0100, L500.4050 ####[facility] [address] [place], [address] AST [Catalytic activity/Vol] 23 U/L Normal <=37 [facility] Comment on above: Performed By: #### L 100.0100, L500.4050 ####[facility] [address] [place], [address] Bilirubin [Mass/Vol] 0.24 mg/dL Normal 0.00-1.30 [facility] Comment on above: Performed By: #### L 100.0100, L500.4050 ####[facility] [address] [place], [address] BUN/CRE 17.6 RATIO Normal 10-20 [facility] Comment on above: Performed By: #### L 100.0100, L500.4050 ####[facility] [address] [place], [address] Calcium [Mass/Vol] 9.5 mg/dL Normal 7.6-11.0 [facility] Comment on above: Performed By: #### L 100.0100, L500.4050 ####[facility] [address] [place], [address] Chloride [Moles/Vol] 101 mmol/L Normal 98-108 [facility] Comment on above: Performed By: #### L 100.0100, L500.4050 ####[facility] [address] [place], [address] CO2 [Moles/Vol] 27.6 mmol/L Normal 21.0-32.0 [facility] Comment on above: Performed By: #### L 100.0100, L500.4050 ####[facility] [address] [place], [address] Creatinine [Mass/Vol] 1.06 mg/dL Normal 0.70-1.20 [facility] Comment on above: Performed By: #### L 100.0100, L500.4050 ####[facility] [address] [place], [address] ECRCL 58.25 ml/min Normal 50-250 [facility] Comment on above: Performed By: #### L 100.0100, L500.4050 ####[facility] [address] [place], [address] GAP 12 Normal 5-15 [facility] Comment on above: Performed By: #### L 100.0100, L500.4050 ####[facility] [address] [place], [address] GFR/1.73 sq M.predicted among non-blacks MDRD (S/P/Bld) [Vol rate/Area] 73 mL/min/{1.73_m2} Normal >60 [facility] Comment on above: Result Comment: mL/m in/1.73m2 CKD-EPI Creatinine Equation (2020) Performed By: #### L 100.0100, L500.4050 ####[facility] [address] [place], [address] Globulin (S) [Mass/Vol] 2.8 g/dL Normal 2.2-4.2 [facility] Comment on above: Performed By: #### L 100.0100, L500.4050 ####[facility] [address] [place], [address] Glucose [Mass/Vol] 109 mg/dL High 70-99 [facility] Comment on above: Performed By: #### L 100.0100, L500.4050 ####[facility] [address] [place], [address] Potassium [Moles/Vol] 3.6 mmol/L Normal 3.3-5.1 [facility] Comment on above: Performed By: #### L 100.0100, L500.4050 ####[facility] [address] [place], [address] Sodium [Moles/Vol] 141 mmol/L Normal 133-145 [facility] Comment on above: Performed By: #### L 100.0100, L500.4050 ####[facility] [address] [place], [address] T PROT 7.1 g/dL Normal 5.9-8.4 [facility] Comment on above: Performed By: #### L 100.0100, L500.4050 ####[facility] [address] [place], [address] Urea nitrogen [Mass/Vol] 19 mg/dL Normal 4-19 [facility] Comment on above: Performed By: #### L 100.0100, L500.4050 ####[facility] [address] [place], [address] ENTERIC PATHOGEN PANEL STOOL on 12-19-[address] [facility] Comment on above: Performed By: #### M 100.637 ####[facility] [address] [place], [address] Magnetic resonance imaging r eportOrdered By: Dorian Parker on 12-19-[address] [facility] Basic Metabolic Profile (BMP )on 12-18-2024 BUN/CRE 20.6 RATIO High 10-20 [facility] Comment on above: Performed By: #### L 500.2500, L100.0500 ####[facility] [address] [place], [address] Calcium [Mass/Vol] 9.7 mg/dL Normal 7.6-11.0 [facility] Comment on above: Performed By: #### L 500.2500, L100.0500 ####[facility] [address] [place], [address] Chloride [Moles/Vol] 103 mmol/L Normal 98-108 [facility] Comment on above: Performed By: #### L 500.2500, L100.0500 ####[facility] [address] [place], [address] CO2 [Moles/Vol] 26.5 mmol/L Normal 21.0-32.0 [facility] Comment on above: Performed By: #### L 500.2500, L100.0500 ####[facility] [address] [place], [address] Creatinine [Mass/Vol] 1.06 mg/dL Normal 0.70-1.20 [facility] Comment on above: Performed By: #### L 500.2500, L100.0500 ####[facility] [address] [place], [address] ECRCL 58.25 ml/min Normal 50-250 [facility] Comment on above: Performed By: #### L 500.2500, L100.0500 ####[facility] [address] [place], [address] GAP 12 Normal 5-15 [facility] Comment on above: Performed By: #### L 500.2500, L100.0500 ####[facility] [address] [place], [address] GFR/1.73 sq M.predicted among non-blacks MDRD (S/P/Bld) [Vol rate/Area] 73 mL/min/{1.73_m2} Normal >60 [facility] Comment on above: Result Comment: mL/m in/1.73m2 CKD-EPI Creatinine Equation (2020) Performed By: #### L 500.2500, L100.0500 ####[facility] [address] [place], [address] Glucose [Mass/Vol] 95 mg/dL Normal 70-99 [facility] Comment on above: Performed By: #### L 500.2500, L100.0500 ####[facility] [address] [place], [address] Potassium [Moles/Vol] 4.2 mmol/L Normal 3.3-5.1 [facility] Comment on above: Result Comment: Hemo lysis present, Results??could be affected.?? Performed By: #### L 500.2500, L100.0500 ####[facility] [address] [place], [address] Sodium [Moles/Vol] 141 mmol/L Normal 133-145 [facility] Comment on above: Performed By: #### L 500.2500, L100.0500 ####[facility] [address] [place], [address] Urea nitrogen [Mass/Vol] 22 mg/dL High 4-19 [facility] Comment on above: Performed By: #### L 500.2500, L100.0500 ####[facility] [address] [place], [address] Brain without Contraston Brain without Contrast Normal [facility] CBC-Complete Blood Cnt No Di ffon 12-18-2024 Erythrocyte distribution width (RBC) [Ratio] 13.7 % Normal 11.6-14.6 [facility] Comment on above: Performed By: #### L 500.2500, L100.0500 ####[facility] [address] [place], [address] Hematocrit (Bld) [Volume fraction] 41.9 % Normal 40-54 [facility] Comment on above: Performed By: #### L 500.2500, L100.0500 ####[facility] [address] [place], [address] Hemoglobin (Bld) [Mass/Vol] 12.8 g/dL Low 13.0-16.5 [facility] Comment on above: Performed By: #### L 500.2500, L100.0500 ####[facility] [address] [place], [address] MCH (RBC) [Entitic mass] 27.7 pg Normal 27.0-32.0 [facility] Comment on above: Performed By: #### L 500.2500, L100.0500 ####[facility] [address] [place], [address] MCHC (RBC) [Mass/Vol] 30.5 g/dL Low 32-36 [facility] Comment on above: Performed By: #### L 500.2500, L100.0500 ####[facility] [address] [place], [address] MCV (RBC) [Entitic vol] 90.7 fL Normal 80-94 [facility] Comment on above: Performed By: #### L 500.2500, L100.0500 ####[facility] [address] [place], [address] Platelet mean volume (Bld) [Entitic vol] 9.9 fL Normal 6.2-12.0 [facility] Comment on above: Performed By: #### L 500.2500, L100.0500 ####[facility] [address] [place], [address] Platelets (Bld) [#/Vol] 386 10*3/uL Normal 150-450 [facility] Comment on above: Performed By: #### L 500.2500, L100.0500 ####[facility] [address] [place], [address] RBC (Bld) [#/Vol] 4.62 10*6/uL Normal 4.6-6.2 [facility] Comment on above: Performed By: #### L 500.2500, L100.0500 ####[facility] [address] [place], [address] RDW SD 45.7 fl High 35.1-43.9 [facility] Comment on above: Performed By: #### L 500.2500, L100.0500 ####[facility] [address] [place], [address] WBC (Bld) [#/Vol] 10.4 10*3/uL Normal 4.4-11.0 [facility] Comment on above: Performed By: #### L 500.2500, L100.0500 ####[facility] [address] [place], [address] Clostridium difficile detect ion by polymerase chain reactionOrdered By: Lisha Talamantes on 12-18-2024 C. difficile DNA ALEENA+probe Ql (Unsp spec) [facility] Echo, Limited Studyon 2024 Echo, Limited Study Normal [facility] Electrocardiogram reportOrde red By: Brendan Vallejo on 12-18-[address] [facility] Other Phone: [phone] Limited echocardiogram repor tOrdered By: Milton Guajardo on 12-18-[address] [facility] Work Phone: MR/CON.PCM.NEon 12-18-2024 MR/CON.PCM.NE Normal [facility] 12 Lead EKGon 12-17-20[address] [facility] Absolute lymphocyte countOrd ered By: Seth Pritchard on 12-17-2024 Lymphocytes Auto (Unsp spec) [#/Vol] 1.03 10*3/uL 0.83-4.51 [facility] Activated partial thrombopla stin time (aPTT) in platelet poor plasma by coagulation aOrdered By: Seth Pritchard on 12-17-2024 aPTT Coag (PPP) [Time] 24.2 s 24.1-36.2 [facility] Anion gap in Serum or Plasma Ordered By: Seth Pritchard on 12-17-2024 Anion gap [Moles/Vol] 13 mmol/L 5-15 [facility] Automated blood erythrocyte countOrdered By: Seth Pritchard on 12-17-2024 RBC (Bld) [#/Vol] 4.45 10*6/uL Low 4.6-6.2 [facility] Comment on above: Performed By: #### L 501.4021, L300.4310, L100.0100, L500.2500, L300.3900 ####[facility] [address] [place], [place], [address] Automated blood hematocrit ( percentage)Ordered By: Seth Pritchard on 12-17-2024 Hematocrit (Bld) [Volume fraction] 39.6 % Low 40-54 [facility] Comment on above: Performed By: #### L 501.4021, L300.4310, L100.0100, L500.2500, L300.3900 ####[facility] [address] [facility] [place], [place], [address] Automated lymphocyte count a s percentage of total leukocytesOrdered By: Seth Pritchard on 12-17-2024 Lymphocytes/100 WBC Auto (Unsp spec) 12.1 % Low 19-41 [facility] BUN/creatinine ratioOrdered By: Seth Pritchard on 12-17-2024 Urea nitrogen/Creatinine [Mass ratio] 26.4 mg/mg High 10-20 [facility] Basic Metabolic Profile (BMP )on 12-17-2024 BUN/CRE 26.4 RATIO High 10-20 [facility] Comment on above: Performed By: #### L 501.4021, L300.4310, L100.0100, L500.2500, L300.3900 ####[facility] [address] [place], [address] ECRCL 52.33 ml/min Normal 50-250 [facility] Comment on above: Performed By: #### L 501.4021, L300.4310, L100.0100, L500.2500, L300.3900 ####[facility] [address] [place], [address] GAP 13 Normal 5-15 [facility] Comment on above: Performed By: #### L 501.4021, L300.4310, L100.0100, L500.2500, L300.3900 ####[facility] [address] [place], [address] Potassium [Moles/Vol] 3.6 mmol/L Normal 3.3-5.1 [facility] Comment on above: Performed By: #### L 501.4021, L300.4310, L100.0100, L500.2500, L300.3900 ####[facility] [address] [place], [address] Basophil percentageOrdered B y: Seth Pritchard on 12-17-2024 Basophils/100 WBC (Bld) 1.1 % High 0-1 [facility] Comment on above: Performed By: #### L 501.4021, L300.4310, L100.0100, L500.2500, L300.3900 ####[facility] [address] [place], [address] CBC W/Diff, Automatedon 07-0 Absolute Lymph 1.03 X10 3/uL Normal 0.83-4.51 [facility] Comment on above: Performed By: #### L 501.4021, L300.4310, L100.0100, L500.2500, L300.3900 ####[facility] [address] [place], [address] Absolute Neut 6.6 X10 3/uL Normal 2.0-7.7 [facility] Comment on above: Performed By: #### L 501.4021, L300.4310, L100.0100, L500.2500, L300.3900 ####[facility] [address] [place], [address] IG% 0.400 Normal 0.0-0.9 [facility] Comment on above: Result Comment: IG% - Immature Granulocytes (promyelocytes, myelocytes andmetamyelocytes) > 1% indicates that a LEFT SHIFT is Present. Performed By: #### L 501.4021, L300.4310, L100.0100, L500.2500, L300.3900 ####[facility] [address] [place], [address] Lymphocytes/100 WBC (Bld) 12.1 % Low 19-41 [facility] Comment on above: Performed By: #### L 501.4021, L300.4310, L100.0100, L500.2500, L300.3900 ####[facility] [address] [place], [address] MCHC (RBC) [Mass/Vol] 31.3 g/dL Low 32-36 [facility] Comment on above: Performed By: #### L 501.4021, L300.4310, L100.0100, L500.2500, L300.3900 ####[facility] [address] [place], [address] Nucleated RBC (Bld) [#/Vol] 0 10*3/uL Normal 0-5 [facility] Comment on above: Performed By: #### L 501.4021, L300.4310, L100.0100, L500.2500, L300.3900 ####[facility] [address] [place], [address] Platelet mean volume (Bld) [Entitic vol] 10.0 fL Normal 6.2-12.0 [facility] Comment on above: Performed By: #### L 501.4021, L300.4310, L100.0100, L500.2500, L300.3900 ####[facility] [address] [place], [address] RDW SD 45.6 fl High 35.1-43.9 [facility] Comment on above: Performed By: #### L 501.4021, L300.4310, L100.0100, L500.2500, L300.3900 ####[facility] [address] [place], [address] Carbon dioxide, total [Moles /volume] in Central venous bloodOrdered By: Seth Pritchard on 12-17-2024 CO2 [Moles/Vol] 25.5 mmol/L Normal 21.0-32.0 [facility] Comment on above: Performed By: #### L 501.4021, L300.4310, L100.0100, L500.2500, L300.3900 ####[facility] [address] [place], [address] Chest PA and Lateralon 12-17 Chest PA and Lateral Normal [facility] Chloride assayOrdered By: Bill Pritchard on 12-17-2024 Chloride [Moles/Vol] 104 mmol/L Normal 98-108 [facility] Comment on above: Performed By: #### L 501.4021, L300.4310, L100.0100, L500.2500, L300.3900 ####[facility] [address] [place], [address] Emergency Department Summary on 07-01-2025 Emergency Department Summary Normal [facility] Eosinophil percentageOrdered By: Seth Pritchard on 12-17-2024 Eosinophils/100 WBC (Bld) 1.1 % Normal 0-5 [facility] Comment on above: Performed By: #### L 501.4021, L300.4310, L100.0100, L500.2500, L300.3900 ####[facility] [address] [place], [place], [address] Erythrocyte distribution wid th ratioOrdered By: Seth Pritchard on 12-17-2024 Erythrocyte distribution width (RBC) [Ratio] 14.0 % Normal 11.6-14.6 [facility] Comment on above: Performed By: #### L 501.4021, L300.4310, L100.0100, L500.2500, L300.3900 ####[facility] [address] [place], [place], [address] Erythrocyte distribution wid th standard deviationOrdered By: Seth Pritchard on 12-17-2024 Erythrocyte distribution width (RBC) [Ratio] 45.6 fl High 35.1-43.9 [facility] Glomerular filtration rate ( GFR) estimation/1.73 sq m using serum, plasma, or whole bOrdered By: Seth Pritchard on 12-17-2024 GFR/1.73 sq M.predicted among non-blacks MDRD (S/P/Bld) [Vol rate/Area] 64 mL/min/{1.73_m2} Normal >60 [facility] Comment on above: Result Comment: mL/m in/1.73m2 CKD-EPI Creatinine Equation (2020) Performed By: #### L 501.4021, L300.4310, L100.0100, L500.2500, L300.3900 ####[facility] [address] [place], [address] H AND P Exam - Hospitaliston 12-17-2024 H&P Exam - Hospitalist Normal [facility] Hemoglobin A1c percentageOrd ered By: Roman aPtel on 12-17-2024 HbA1c (Bld) [Mass fraction] 5.9 % High <=5.6 [facility] Comment on above: Result Comment: Norm al < 5.7 % Prediabetic 5.7 - 6.4 % Diabetic >or= 6.5 % Please note range changes. Performed By: #### L 501.9985, L501.9520 ####[facility] [address] [place], [address] Hemoglobin measurementOrdere d By: Seth Pritchard on 12-17-2024 Hemoglobin (Bld) [Mass/Vol] 12.4 g/dL Low 13.0-16.5 [facility] Comment on above: Performed By: #### L 501.4021, L300.4310, L100.0100, L500.2500, L300.3900 ####[facility] [address] [place], [address] Immature granulocytes/100 WB C Auto (Bld)Ordered By: Seth Pritchard on 12-17-2024 Immature granulocytes/100 WBC (Bld) 0.400 % 0.0-0.9 [facility] L499.0042on 12-17-2024 Trop T High Sen 23 ng/L High <=22 [facility] Comment on above: Performed By: #### L 499.0042 ####[facility] [address] [place], [address] L499.0043on 12-17-2024 Trop T High Sen 23 ng/L High <=22 [facility] Comment on above: Performed By: #### L 499.0043 ####[facility] [address] [place], [address] L501.4021on 12-17-2024 Trop T High Sen 27 ng/L High <=22 [facility] Comment on above: Performed By: #### L 501.4021, L300.4310, L100.0100, L500.2500, L300.3900 ####[facility] [address] [place], [place], [address] MCV (mean corpuscular volume ) determinationOrdered By: Seth Pritchard on 12-17-2024 MCV (RBC) [Entitic vol] 89.0 fL Normal 80-94 [facility] Comment on above: Performed By: #### L 501.4021, L300.4310, L100.0100, L500.2500, L300.3900 ####[facility] [address] [place], [place], [address] Mean corpuscular hemoglobin (MCH) determinationOrdered By: Seth Pritchard on 12-17-2024 MCH (RBC) [Entitic mass] 27.9 pg Normal 27.0-32.0 [facility] Comment on above: Performed By: #### L 501.4021, L300.4310, L100.0100, L500.2500, L300.3900 ####[facility] [address] [place], [place], [id number] Monocyte percentageOrdered B y: Seth Pritchard on 12-17-2024 Monocytes/100 WBC (Bld) 7.8 % Normal 0-10 [facility] Comment on above: Performed By: #### L 501.4021, L300.4310, L100.0100, L500.2500, L300.3900 ####[facility] [address] [place], [address] Neutrophil percentageOrdered By: Seth Pritchard on 12-17-2024 Neutrophils/100 WBC (Bld) 77.5 % High 47-70 [facility] Comment on above: Performed By: #### L 501.4021, L300.4310, L100.0100, L500.2500, L300.3900 ####[facility] [address] [place], [address] Partial Thromboplast Timeon 12-17-2024 aPTT Coag (Bld) [Time] 24.2 s Normal 24.1-36.2 [facility] Comment on above: Performed By: #### L 501.4021, L300.4310, L100.0100, L500.2500, L300.3900 ####[facility] [address] [place], [address] Platelet countOrdered By: Bill Pritchard on 12-17-2024 Platelets (Bld) [#/Vol] 417 10*3/uL Normal 150-450 [facility] Comment on above: Performed By: #### L 501.4021, L300.4310, L100.0100, L500.2500, L300.3900 ####[facility] [address], [address] Potassium measurement (mass/ volume)Ordered By: Seth Pritchard on 12-17-2024 Potassium (Unsp spec) [Mass/Vol] 3.6 mmol/L 3.3-5.1 [facility] Prothrombin Time w/INRon INR Coag (PPP) [Relative time] 0.9 {INR} Normal [facility] Comment on above: Performed By: #### L 501.4021, L300.4310, L100.0100, L500.2500, L300.3900 ####[facility] [id number], [address] Prothrombin timeOrdered By: Seth Pritchard on 12-17-2024 PT Coag (PPP) [Time] 12.8 s Normal 11.7-14.9 [facility] Comment on above: Performed By: #### L 501.4021, L300.4310, L100.0100, L500.2500, L300.3900 ####[facility] [address] [place], [address] STROKE Brain/Head without Co nton 12-17-2024 STROKE Brain/Head without Cont Normal [facility] STROKE CTA Head AND Neck W/C onon 12-17-2024 STROKE CTA Head AND Neck W/Con Normal [facility] Serum creatinine measurement (mass/volume)Ordered By: Seth Pritchard on 12-17-2024 Creatinine [Mass/Vol] 1.18 mg/dL Normal 0.70-1.20 [facility] Comment on above: Performed By: #### L 501.4021, L300.4310, L100.0100, L500.2500, L300.3900 ####[facility] [address] [place], [address] Serum glucose measurement (m ass/volume)Ordered By: Seth Pritchard on 12-17-2024 Glucose [Mass/Vol] 137 mg/dL High 70-99 [facility] Comment on above: Performed By: #### L 501.4021, L300.4310, L100.0100, L500.2500, L300.3900 ####[facility] [id number] [place], [address] Serum or plasma calcium luis urement (mass/volume)Ordered By: Seth Pritchard on 12-17-2024 Calcium [Mass/Vol] 9.9 mg/dL Normal 7.6-11.0 [facility] Comment on above: Performed By: #### L 501.4021, L300.4310, L100.0100, L500.2500, L300.3900 ####[facility] [address] [place], [address] Serum or plasma urea nitroge n measurement (mass/volume)Ordered By: Seth Pritchard on 12-17-2024 Urea nitrogen [Mass/Vol] 31 mg/dL High 4-19 St[address] [facility] Comment on above: Performed By: #### L 501.4021, L300.4310, L100.0100, L500.2500, L300.3900 ####[facility] [address] [place], [address] Sodium levelOrdered By: Huang Pritchard on 12-17-2024 Sodium [Moles/Vol] 142 mmol/L Normal 133-145 [facility] Comment on above: Performed By: #### L 501.4021, L300.4310, L100.0100, L500.2500, L300.3900 ####[facility] [address] [place], [place], [id number] TSH DL <= 0.005 mIU/L QnOrde red By: Roman Patel on 12-17-2024 TSH Qn 3.380 uIU/mL 0.300-4.200 [facility] Thyroid Stim Hormone (TSH)on 12-17-2024 TSH 3.380 uIU/mL Normal 0.300-4.200 [facility] Comment on above: Performed By: #### L 501.9985, L501.9520 ####[facility] [address], [address] Troponin T.cardiac [Mass/vol ume] in Serum or Plasma by High sensitivity methodOrdered By: Seth Pritchard on 12-17-2024 Troponin T.cardiac High sensitivity method [Mass/Vol] 23 ng/L High <22 [facility] Troponin T.cardiac High sensitivity method [Mass/Vol] 23 ng/L High <22 [facility] Troponin T.cardiac High sensitivity method [Mass/Vol] 27 ng/L High <22 [facility] White blood cell (WBC) count Ordered By: Seth Pritchard on 12-17-2024 WBC (Bld) [#/Vol] 8.5 10*3/uL Normal 4.4-11.0 [facility] Comment on above: Performed By: #### L 501.4021, L300.4310, L100.0100, L500.2500, L300.3900 ####[facility] [address] [place], [place], [id number] Anion gap in Serum or Plasma Ordered By: Lisha Talamantes on 12-16-2024 Anion gap [Moles/Vol] 12 mmol/L 5-15 [facility] BUN/creatinine ratioOrdered By: Lisha Talamantes on 12-16-2024 Urea nitrogen/Creatinine [Mass ratio] 24.5 mg/mg High 10-20 [facility] Basic Metabolic Profile (BMP )on 12-16-2024 BUN/CRE 24.5 RATIO High - [facility] Comment on above: Performed By: #### L 500.2500 ####[facility] [address] [place], [address] Calcium [Mass/Vol] 9.4 mg/dL Normal 7.6-11.0 [facility] Comment on above: Performed By: #### L 500.2500 ####[facility] [address] [place], [address] Chloride [Moles/Vol] 102 mmol/L Normal 98-108 [facility] Comment on above: Performed By: #### L 500.2500 ####[facility] [address] [place], [address] CO2 [Moles/Vol] 25.5 mmol/L Normal 21.0-32.0 [facility] Comment on above: Performed By: #### L 500.2500 ####[facility] [address] [place], [address] Creatinine [Mass/Vol] 1.17 mg/dL Normal 0.70-1.20 [facility] Comment on above: Performed By: #### L 500.2500 ####[facility] [address] [place], [address] ECRCL 52.78 ml/min Normal 50-250 [facility] Comment on above: Performed By: #### L 500.2500 ####[facility] [address] [place], [address] GAP 12 Normal 5-15 [facility] Comment on above: Performed By: #### L 500.2500 ####[facility] [address] [place], [address] GFR/1.73 sq M.predicted among non-blacks MDRD (S/P/Bld) [Vol rate/Area] 65 mL/min/{1.73_m2} Normal >60 [facility] Comment on above: Result Comment: mL/m in/1.73m2 CKD-EPI Creatinine Equation (2020) Performed By: #### L 500.2500 ####[facility] [address] [place], [address] Glucose [Mass/Vol] 108 mg/dL High 70-99 [facility] Comment on above: Performed By: #### L 500.2500 ####[facility] [address] [place], [address] Potassium [Moles/Vol] 3.6 mmol/L Normal 3.3-5.1 [facility] Comment on above: Performed By: #### L 500.2500 ####[facility] [address] [place], [address] Sodium [Moles/Vol] 140 mmol/L Normal 133-145 [facility] Comment on above: Performed By: #### L 500.2500 ####[facility] [address] [place], [address] Urea nitrogen [Mass/Vol] 29 mg/dL High 4-19 [facility] Comment on above: Performed By: #### L 500.2500 ####[facility] [address] [place], [address] Carbon dioxide, total [Moles /volume] in Central venous bloodOrdered By: Lisha Talamantes on 12-16-2024 CO2 [Moles/Vol] 25.5 mmol/L 21.0-32.0 [facility] Chloride assayOrdered By: Sierra Talamantes on 12-16-2024 Chloride [Moles/Vol] 102 mmol/L 98-108 [facility] Culture, Blood (WB)on 2024 CUB Blood cultures x2, from two different sites No growth in 5 days. Normal [facility] Comment on above: Performed By: #### M 200.1000 ####[facility] [address] [place], [place], [id number] Glomerular filtration rate ( GFR) estimation/1.73 sq m using serum, plasma, or whole bOrdered By: Lisha Talamantes on 12-16-2024 GFR/1.73 sq M.predicted among non-blacks MDRD (S/P/Bld) [Vol rate/Area] 65 mL/min/{1.73_m2} >60 [facility] Potassium measurement (mass/ volume)Ordered By: Lisha Talamantes on 12-16-2024 Potassium (Unsp spec) [Mass/Vol] 3.6 mmol/L 3.3-5.1 [facility] Serum creatinine measurement (mass/volume)Ordered By: Lisha Talamantes on 12-16-2024 Creatinine [Mass/Vol] 1.17 mg/dL 0.70-1.20 [facility] Serum glucose measurement (m ass/volume)Ordered By: Lisha Talamantes on 12-16-2024 Glucose [Mass/Vol] 108 mg/dL High 70-99 [facility] Serum or plasma calcium luis urement (mass/volume)Ordered By: Lisha Talamantes on 12-16-2024 Calcium [Mass/Vol] 9.4 mg/dL 7.6-11.0 [facility] Serum or plasma urea nitroge n measurement (mass/volume)Ordered By: Lisha Talamantes on 12-16-2024 Urea nitrogen [Mass/Vol] 29 mg/dL High 4-19 [facility] Sodium levelOrdered By: Cecilia Talamantes on 12-16-2024 Sodium [Moles/Vol] 140 mmol/L 133-145 [facility] Absolute lymphocyte countOrd ered By: Lisha Talamantes on 12-15-2024 Lymphocytes Auto (Unsp spec) [#/Vol] 0.82 10*3/uL Low 0.83-4.51 [facility] Automated lymphocyte count a s percentage of total leukocytesOrdered By: Lisha Talamantes on 12-15-2024 Lymphocytes/100 WBC Auto (Unsp spec) 9.8 % Low 19-41 [facility] Basic Metabolic Profile (BMP )on 12-15-2024 BUN/CRE 20.1 RATIO High 10-20 [facility] Comment on above: Performed By: #### L 501.2300, L500.2500, L100.0100, L501.5200 ####[facility] [address] [place], [address] Calcium [Mass/Vol] 9.3 mg/dL Normal 7.6-11.0 [facility] Comment on above: Performed By: #### L 501.2300, L500.2500, L100.0100, L501.5200 ####[facility] [address] [place], [address] Chloride [Moles/Vol] 106 mmol/L Normal 98-108 [facility] Comment on above: Performed By: #### L 501.2300, L500.2500, L100.0100, L501.5200 ####[facility] [address] [place], [address] CO2 [Moles/Vol] 24.0 mmol/L Normal 21.0-32.0 [facility] Comment on above: Performed By: #### L 501.2300, L500.2500, L100.0100, L501.5200 ####[facility] [address] [place], [address] Creatinine [Mass/Vol] 1.10 mg/dL Normal 0.70-1.20 [facility] Comment on above: Performed By: #### L 501.2300, L500.2500, L100.0100, L501.5200 ####[facility] [address] [place], [address] ECRCL 56.14 ml/min Normal 50-250 [facility] Comment on above: Performed By: #### L 501.2300, L500.2500, L100.0100, L501.5200 ####[facility] [address] [place], [address] GAP 12 Normal 5-15 [facility] Comment on above: Performed By: #### L 501.2300, L500.2500, L100.0100, L501.5200 ####[facility] [address] [place], [address] GFR/1.73 sq M.predicted among non-blacks MDRD (S/P/Bld) [Vol rate/Area] 70 mL/min/{1.73_m2} Normal >60 [facility] Comment on above: Result Comment: mL/m in/1.73m2 CKD-EPI Creatinine Equation (2020) Performed By: #### L 501.2300, L500.2500, L100.0100, L501.5200 ####[facility] [address] [place], [address] Glucose [Mass/Vol] 97 mg/dL Normal 70-99 [facility] Comment on above: Performed By: #### L 501.2300, L500.2500, L100.0100, L501.5200 ####[facility] [address] [place], [address] Potassium [Moles/Vol] 4.1 mmol/L Normal 3.3-5.1 [facility] Comment on above: Performed By: #### L 501.2300, L500.2500, L100.0100, L501.5200 ####[facility] [address] [place], [address] Sodium [Moles/Vol] 142 mmol/L Normal 133-145 [facility] Comment on above: Performed By: #### L 501.2300, L500.2500, L100.0100, L501.5200 ####[facility] [address] [place], [address] Urea nitrogen [Mass/Vol] 22 mg/dL High 4-19 [facility] Comment on above: Performed By: #### L 501.2300, L500.2500, L100.0100, L501.5200 ####[facility] [address] [place], [address] Basophil percentageOrdered B y: Lisha Talamantes on 12-15-2024 Basophils/100 WBC (Bld) 0.2 % 0-1 [facility] CBC W/Diff, Automatedon 11-18 Absolute Lymph 0.82 X10 3/uL Low 0.83-4.51 [facility] Comment on above: Performed By: #### L 501.2300, L500.2500, L100.0100, L501.5200 ####[facility] [address] [place], [address] Absolute Neut 7.0 X10 3/uL Normal 2.0-7.7 [facility] Comment on above: Performed By: #### L 501.2300, L500.2500, L100.0100, L501.5200 ####[facility] [address] [place], [address] Basophils/100 WBC (Bld) 0.2 % Normal 0-1 [facility] Comment on above: Performed By: #### L 501.2300, L500.2500, L100.0100, L501.5200 ####[facility] [address] [place], [address] Eosinophils/100 WBC (Bld) 0.0 % Normal 0-5 [facility] Comment on above: Performed By: #### L 501.2300, L500.2500, L100.0100, L501.5200 ####[facility] [address] [place], [address] Erythrocyte distribution width (RBC) [Ratio] 13.8 % Normal 11.6-14.6 [facility] Comment on above: Performed By: #### L 501.2300, L500.2500, L100.0100, L501.5200 ####[facility] [address] [place], [address] Hematocrit (Bld) [Volume fraction] 35.6 % Low 40-54 [facility] Comment on above: Performed By: #### L 501.2300, L500.2500, L100.0100, L501.5200 ####[facility] [address] [place], [address] Hemoglobin (Bld) [Mass/Vol] 11.3 g/dL Low 13.0-16.5 [facility] Comment on above: Performed By: #### L 501.2300, L500.2500, L100.0100, L501.5200 ####[facility] [address] [place], [address] IG% 0.400 Normal 0.0-0.9 [facility] Comment on above: Result Comment: IG% - Immature Granulocytes (promyelocytes, myelocytes andmetamyelocytes) > 1% indicates that a LEFT SHIFT is Present. Performed By: #### L 501.2300, L500.2500, L100.0100, L501.5200 ####[facility] [address] [place], [address] Lymphocytes/100 WBC (Bld) 9.8 % Low 19-41 [facility] Comment on above: Performed By: #### L 501.2300, L500.2500, L100.0100, L501.5200 ####[facility] [address] [place], [address] MCH (RBC) [Entitic mass] 28.2 pg Normal 27.0-32.0 [facility] Comment on above: Performed By: #### L 501.2300, L500.2500, L100.0100, L501.5200 ####[facility] [address] [place], [address] MCHC (RBC) [Mass/Vol] 31.7 g/dL Low 32-36 [facility] Comment on above: Performed By: #### L 501.2300, L500.2500, L100.0100, L501.5200 ####[facility] [address] [place], [address] MCV (RBC) [Entitic vol] 88.8 fL Normal 80-94 [facility] Comment on above: Performed By: #### L 501.2300, L500.2500, L100.0100, L501.5200 ####[facility] [address] [place], [address] Monocytes/100 WBC (Bld) 6.3 % Normal 0-10 [facility] Comment on above: Performed By: #### L 501.2300, L500.2500, L100.0100, L501.5200 ####[facility] [address] [place], [address] Neutrophils/100 WBC (Bld) 83.3 % High 47-70 [facility] Comment on above: Performed By: #### L 501.2300, L500.2500, L100.0100, L501.5200 ####[facility] [address] [place], [address] Nucleated RBC (Bld) [#/Vol] 0 10*3/uL Normal 0-5 [facility] Comment on above: Performed By: #### L 501.2300, L500.2500, L100.0100, L501.5200 ####[facility] [address] [place], [address] Platelet mean volume (Bld) [Entitic vol] 10.0 fL Normal 6.2-12.0 [facility] Comment on above: Performed By: #### L 501.2300, L500.2500, L100.0100, L501.5200 ####[facility] [address] [place], [address] Platelets (Bld) [#/Vol] 329 10*3/uL Normal 150-450 [facility] Comment on above: Performed By: #### L 501.2300, L500.2500, L100.0100, L501.5200 ####[facility] [address] [place], [address] RBC (Bld) [#/Vol] 4.01 10*6/uL Low 4.6-6.2 [facility] Comment on above: Performed By: #### L 501.2300, L500.2500, L100.0100, L501.5200 ####[facility] [address] [place], [address] RDW SD 44.9 fl High 35.1-43.9 [facility] Comment on above: Performed By: #### L 501.2300, L500.2500, L100.0100, L501.5200 ####[facility] [address] [place], [address] WBC (Bld) [#/Vol] 8.4 10*3/uL Normal 4.4-11.0 [facility] Comment on above: Performed By: #### L 501.2300, L500.2500, L100.0100, L501.5200 ####[facility] [address] [place], [address] Eosinophil percentageOrdered By: Lisha Talamantes on 12-15-2024 Eosinophils/100 WBC (Bld) 0.0 % 0-5 [facility] Erythrocyte distribution wid th ratioOrdered By: Lisha Talamantes on 12-15-2024 Erythrocyte distribution width (RBC) [Ratio] 13.8 % 11.6-14.6 [facility] Erythrocyte distribution wid th standard deviationOrdered By: Lisha Talamantes on 12-15-2024 Erythrocyte distribution width (RBC) [Ratio] 44.9 fl High 35.1-43.9 [facility] Hematocrit Auto (Bld) [Volum e fraction]Ordered By: Lisha Talamantes on 12-15-2024 Hematocrit (Bld) [Volume fraction] 35.6 % Low 40-54 [facility] Hemoglobin measurementOrdere d By: Lisha Talamantes on 12-15-2024 Hemoglobin (Bld) [Mass/Vol] 11.3 g/dL Low 13.0-16.5 [facility] Immature granulocytes/100 WB C Auto (Bld)Ordered By: Lisha Talamantes on 12-15-2024 Immature granulocytes/100 WBC (Bld) 0.400 % 0.0-0.9 [facility] MCV (mean corpuscular volume ) determinationOrdered By: Lisha Talamantes on 12-15-2024 MCV (RBC) [Entitic vol] 88.8 fL 80-94 [facility] Magnesiumon 12-15-2024 Magnesium [Mass/Vol] 2.0 mg/dL Normal 1.5-2.2 [facility] Comment on above: Performed By: #### L 501.2300, L500.2500, L100.0100, L501.5200 ####[facility] [address] [place], [place], [id number] Magnesium measurement (mass/ volume)Ordered By: Lisha Talamantes on 12-15-2024 Magnesium (Unsp spec) [Mass/Vol] 2.0 mg/dL 1.5-2.2 [facility] Mean corpuscular hemoglobin (MCH) determinationOrdered By: Lisha Talamantes on 12-15-2024 MCH (RBC) [Entitic mass] 28.2 pg 27.0-32.0 [facility] Monocyte percentageOrdered B y: Lisha Talamantes on 12-15-2024 Monocytes/100 WBC (Bld) 6.3 % 0-10 [facility] Neutrophil percentageOrdered By: Lisha Talamantes on 12-15-2024 Neutrophils/100 WBC (Bld) 83.3 % High 47-70 [facility] Phosphoruson 12-15-2024 Phosphate [Mass/Vol] 3.3 mg/dL Normal 2.7-4.5 [facility] Comment on above: Performed By: #### L 501.2300, L500.2500, L100.0100, L501.5200 ####[facility] [address] [place], [address] Platelet countOrdered By: Sierra Talamantes on 12-15-2024 Platelets (Bld) [#/Vol] 329 10*3/uL 150-450 [facility] RBC Auto (Bld) [#/Vol]Ordere d By: Lisha Talamantes on 12-15-2024 RBC (Bld) [#/Vol] 4.01 10*6/uL Low 4.6-6.2 [facility] White blood cell (WBC) count Ordered By: Lisha Talamantes on 12-15-2024 WBC (Bld) [#/Vol] 8.4 10*3/uL 4.4-11.0 [facility] Bilirubin, totalOrdered By: Shilpa Contreras on 12-14-2024 Bilirubin [Mass/Vol] mg/dL 0.00-1.30 [facility] CBC W/Diff, Automatedon 11-18 Absolute Lymph 0.65 X10 3/uL Low 0.83-4.51 [facility] Comment on above: Performed By: #### L 100.0100, L500.4050, L300.3900 ####[facility] [address] [place], [address] Absolute Neut 3.4 X10 3/uL Normal 2.0-7.7 [facility] Comment on above: Performed By: #### L 100.0100, L500.4050, L300.3900 ####[facility] [address] [place], [address] Basophils/100 WBC (Bld) 0.2 % Normal 0-1 [facility] Comment on above: Performed By: #### L 100.0100, L500.4050, L300.3900 ####[facility] [address] [place], [address] Eosinophils/100 WBC (Bld) 0.0 % Normal 0-5 [facility] Comment on above: Performed By: #### L 100.0100, L500.4050, L300.3900 ####[facility] [address] [place], [address] Erythrocyte distribution width (RBC) [Ratio] 13.7 % Normal 11.6-14.6 [facility] Comment on above: Performed By: #### L 100.0100, L500.4050, L300.3900 ####[facility] [address] [place], [address] Hematocrit (Bld) [Volume fraction] 33.7 % Low 40-54 [facility] Comment on above: Performed By: #### L 100.0100, L500.4050, L300.3900 ####[facility] [address] [place], [address] Hemoglobin (Bld) [Mass/Vol] 10.6 g/dL Low 13.0-16.5 [facility] Comment on above: Performed By: #### L 100.0100, L500.4050, L300.3900 ####[facility] [address] [place], [address] IG% 0.200 Normal 0.0-0.9 [facility] Comment on above: Result Comment: IG% - Immature Granulocytes (promyelocytes, myelocytes andmetamyelocytes) > 1% indicates that a LEFT SHIFT is Present. Performed By: #### L 100.0100, L500.4050, L300.3900 ####[facility] [address] [place], [address] Lymphocytes/100 WBC (Bld) 15.0 % Low 19-41 [facility] Comment on above: Performed By: #### L 100.0100, L500.4050, L300.3900 ####[facility] [address] [place], [address] MCH (RBC) [Entitic mass] 27.8 pg Normal 27.0-32.0 [facility] Comment on above: Performed By: #### L 100.0100, L500.4050, L300.3900 ####[facility] [address] [place], [address] MCHC (RBC) [Mass/Vol] 31.5 g/dL Low 32-36 [facility] Comment on above: Performed By: #### L 100.0100, L500.4050, L300.3900 ####[facility] [address] [place], [address] MCV (RBC) [Entitic vol] 88.5 fL Normal 80-94 [facility] Comment on above: Performed By: #### L 100.0100, L500.4050, L300.3900 ####[facility] [address] [place], [address] Monocytes/100 WBC (Bld) 5.3 % Normal 0-10 [facility] Comment on above: Performed By: #### L 100.0100, L500.4050, L300.3900 ####[facility] [address] [place], [address] Neutrophils/100 WBC (Bld) 79.3 % High 47-70 [facility] Comment on above: Performed By: #### L 100.0100, L500.4050, L300.3900 ####[facility] [address] [place], [address] Nucleated RBC (Bld) [#/Vol] 0 10*3/uL Normal 0-5 [facility] Comment on above: Performed By: #### L 100.0100, L500.4050, L300.3900 ####[facility] [address] [place], [address] Platelet mean volume (Bld) [Entitic vol] 10.1 fL Normal 6.2-12.0 [facility] Comment on above: Performed By: #### L 100.0100, L500.4050, L300.3900 ####[facility] [address] [place], [address] Platelets (Bld) [#/Vol] 306 10*3/uL Normal 150-450 [facility] Comment on above: Performed By: #### L 100.0100, L500.4050, L300.3900 ####[facility] [address] [place], [address] RBC (Bld) [#/Vol] 3.81 10*6/uL Low 4.6-6.2 [facility] Comment on above: Performed By: #### L 100.0100, L500.4050, L300.3900 ####[facility] [address] [place], [address] RDW SD 44.5 fl High 35.1-43.9 [facility] Comment on above: Performed By: #### L 100.0100, L500.4050, L300.3900 ####[facility] [address] [place], [address] WBC (Bld) [#/Vol] 4.3 10*3/uL Low 4.4-11.0 [facility] Comment on above: Performed By: #### L 100.0100, L500.4050, L300.3900 ####[facility] [address] [place], [address] Comprehensive Metabolic Prof ilon 12-14-2024 ALK PHOS 70 U/L Normal 40-129 [facility] Comment on above: Performed By: #### L 100.0100, L500.4050, L300.3900 ####[facility] [address] [place], [address] AST [Catalytic activity/Vol] 18 U/L Normal <=37 [facility] Comment on above: Performed By: #### L 100.0100, L500.4050, L300.3900 ####[facility] [address] [place], [address] BUN/CRE 12.3 RATIO Normal 10-20 [facility] Comment on above: Performed By: #### L 100.0100, L500.4050, L300.3900 ####[facility] [address] [place], [address] Calcium [Mass/Vol] 9.5 mg/dL Normal 7.6-11.0 [facility] Comment on above: Performed By: #### L 100.0100, L500.4050, L300.3900 ####[facility] [address] [place], [address] Chloride [Moles/Vol] 105 mmol/L Normal 98-108 [facility] Comment on above: Performed By: #### L 100.0100, L500.4050, L300.3900 ####[facility] [address] [place], [address] CO2 [Moles/Vol] 24.4 mmol/L Normal 21.0-32.0 [facility] Comment on above: Performed By: #### L 100.0100, L500.4050, L300.3900 ####[facility] [address] [place], [address] Creatinine [Mass/Vol] 1.04 mg/dL Normal 0.70-1.20 [facility] Comment on above: Performed By: #### L 100.0100, L500.4050, L300.3900 ####[facility] [address] [place], [address] ECRCL 59.38 ml/min Normal 50-250 [facility] Comment on above: Performed By: #### L 100.0100, L500.4050, L300.3900 ####[facility] [address] [place], [address] GAP 13 Normal 5-15 [facility] Comment on above: Performed By: #### L 100.0100, L500.4050, L300.3900 ####[facility] [address] [place], [address] GFR/1.73 sq M.predicted among non-blacks MDRD (S/P/Bld) [Vol rate/Area] 75 mL/min/{1.73_m2} Normal >60 [facility] Comment on above: Result Comment: mL/m in/1.73m2 CKD-EPI Creatinine Equation (2020) Performed By: #### L 100.0100, L500.4050, L300.3900 ####[facility] [address] [place], [address] Glucose [Mass/Vol] 129 mg/dL High 70-99 [facility] Comment on above: Performed By: #### L 100.0100, L500.4050, L300.3900 ####[facility] [address] [place], [address] Potassium [Moles/Vol] 3.8 mmol/L Normal 3.3-5.1 [facility] Comment on above: Performed By: #### L 100.0100, L500.4050, L300.3900 ####[facility] [address] [place], [address] Sodium [Moles/Vol] 143 mmol/L Normal 133-145 [facility] Comment on above: Performed By: #### L 100.0100, L500.4050, L300.3900 ####[facility] [address] [place], [address] T BILI < 0.15 Normal 0.00-1.30 [facility] Comment on above: Performed By: #### L 100.0100, L500.4050, L300.3900 ####[facility] [address] [place], [address] T PROT 6.6 g/dL Normal 5.9-8.4 [facility] Comment on above: Performed By: #### L 100.0100, L500.4050, L300.3900 ####[facility] [address] [place], [address] Urea nitrogen [Mass/Vol] 13 mg/dL Normal 4-19 [facility] Comment on above: Performed By: #### L 100.0100, L500.4050, L300.3900 ####[facility] [address] [place], [address] No Panel InformationOrdered By: Shilpa Contreras on 12-14-2024 18 U/L <38 [facility] Prothrombin Time w/INRon INR Coag (PPP) [Relative time] 1.0 {INR} Normal [facility] Comment on above: Performed By: #### L 100.0100, L500.4050, L300.3900 ####[facility] [address] [place], [address] PT Coag (PPP) [Time] 13.5 s Normal 11.7-14.9 [facility] Comment on above: Performed By: #### L 100.0100, L500.4050, L300.3900 ####[facility] [address] [place], [address] Prothrombin timeOrdered By: Shilpa Contreras on 12-14-2024 PT Coag (PPP) [Time] 13.5 s 11.7-14.9 [facility] RESPIRATORY PANEL MOLECULARo n 12-14-[address] [facility] Comment on above: Performed By: #### M 100.638 ####[facility] [address] [place], [address] Serum globulin measurementOr dered By: Shilpa Contreras on 12-14-2024 Globulin (S) [Mass/Vol] 2.5 g/dL Normal 2.2-4.2 [facility] Comment on above: Performed By: #### L 100.0100, L500.4050, L300.3900 ####[facility] [address] [place], [address] Serum or plasma alanine saul otransferase (ALT) measurementOrdered By: Shilpa Contreras on 12-14-2024 ALT [Catalytic activity/Vol] 16 U/L Normal <=46 [facility] Comment on above: Performed By: #### L 100.0100, L500.4050, L300.3900 ####[facility] [address] [place], [address] Serum or plasma albumin luis urement (mass/volume)Ordered By: Shilpa Contreras on 12-14-2024 Albumin [Mass/Vol] 4.0 g/dL Normal 3.4-4.8 [facility] Comment on above: Performed By: #### L 100.0100, L500.4050, L300.3900 ####[facility] [address] [place], [address] Serum or plasma albumin/glob ulin mass ratioOrdered By: Shilpa Ben on 12-14-2024 Albumin/Globulin [Mass ratio] 1.6 {ratio} Normal 0.9-2.4 [facility] Comment on above: Performed By: #### L 100.0100, L500.4050, L300.3900 ####[facility] [address] [place], [address] Serum or plasma alkaline kathleen sphatase measurementOrdered By: Shilpa Ben on 12-14-2024 ALP [Catalytic activity/Vol] 70 U/L 40-129 [facility] Total proteinOrdered By: Roverto donovan Contreras on 12-14-2024 Protein [Mass/Vol] 6.6 g/dL 5.9-8.4 [facility] Absolute lymphocyte countOrd ered By: Remus Ungkevin on 12-13-2024 Lymphocytes Auto (Unsp spec) [#/Vol] 1.16 10*3/uL 0.83-4.51 [facility] Absolute neutrophil countOrd ered By: Remus Ungur on 12-13-2024 Neutrophils (Bld) [#/Vol] 4.0 10*3/uL 2.0-7.7 [facility] Anion gap in Serum or Plasma Ordered By: Remus Aaron on 12-13-2024 Anion gap [Moles/Vol] 13 mmol/L 5-15 [facility] Automated lymphocyte count a s percentage of total leukocytesOrdered By: Remus Walker on 12-13-2024 Lymphocytes/100 WBC Auto (Unsp spec) 19.5 % 19-41 [facility] BUN/creatinine ratioOrdered By: Charis Walker on 12-13-2024 Urea nitrogen/Creatinine [Mass ratio] 11.0 mg/mg 10-20 [facility] Basic Metabolic Profile (BMP )on 12-13-2024 BUN/CRE 11.0 RATIO Normal -20 [facility] Comment on above: Performed By: #### L 500.2500, L100.0100 ####[facility] [address] [place], [address] Calcium [Mass/Vol] 9.7 mg/dL Normal 7.6-11.0 [facility] Comment on above: Performed By: #### L 500.2500, L100.0100 ####[facility] [address] [place], [address] Chloride [Moles/Vol] 104 mmol/L Normal 98-108 [facility] Comment on above: Performed By: #### L 500.2500, L100.0100 ####[facility] [address] [place], [address] CO2 [Moles/Vol] 24.4 mmol/L Normal 21.0-32.0 [facility] Comment on above: Performed By: #### L 500.2500, L100.0100 ####[facility] [address] [place], [address] Creatinine [Mass/Vol] 1.11 mg/dL Normal 0.70-1.20 [facility] Comment on above: Performed By: #### L 500.2500, L100.0100 ####[facility] [address] [place], [address] ECRCL 55.63 ml/min Normal 50-250 [facility] Comment on above: Performed By: #### L 500.2500, L100.0100 ####[facility] [address] [place], [address] GAP 13 Normal 5-15 [facility] Comment on above: Performed By: #### L 500.2500, L100.0100 ####[facility] [address] [place], [address] GFR/1.73 sq M.predicted among non-blacks MDRD (S/P/Bld) [Vol rate/Area] 69 mL/min/{1.73_m2} Normal >60 [facility] Comment on above: Result Comment: mL/m in/1.73m2 CKD-EPI Creatinine Equation (2020) Performed By: #### L 500.2500, L100.0100 ####[facility] [address] [place], [address] Glucose [Mass/Vol] 102 mg/dL High 70-99 [facility] Comment on above: Performed By: #### L 500.2500, L100.0100 ####[facility] [address] [place], [address] Potassium [Moles/Vol] 3.7 mmol/L Normal 3.3-5.1 [facility] Comment on above: Performed By: #### L 500.2500, L100.0100 ####[facility] [address] [place], [address] Sodium [Moles/Vol] 141 mmol/L Normal 133-145 [facility] Comment on above: Performed By: #### L 500.2500, L100.0100 ####[facility] [address] [place], [address] Urea nitrogen [Mass/Vol] 12 mg/dL Normal 4-19 [facility] Comment on above: Performed By: #### L 500.2500, L100.0100 ####[facility] [address] [place], [address] Basophil percentageOrdered B y: Remus Ungur on 12-13-2024 Basophils/100 WBC (Bld) 1.0 % 0-1 [facility] Blood cultureOrdered By: Rem us Ungur on 12-13-2024 Bacteria identified Cx Nom (Bld) No growth in [address] [facility] Bacteria identified Cx Nom (Bld) No growth in [address] [facility] CBC W/Diff, Automatedon - Absolute Lymph 1.16 X10 3/uL Normal 0.83-4.51 [facility] Comment on above: Performed By: #### L 500.2500, L100.0100 ####[facility] [address] [place], [address] Absolute Neut 4.0 X10 3/uL Normal 2.0-7.7 [facility] Comment on above: Performed By: #### L 500.2500, L100.0100 ####[facility] [address] [place], [address] Basophils/100 WBC (Bld) 1.0 % Normal 0-1 [facility] Comment on above: Performed By: #### L 500.2500, L100.0100 ####[facility] [address] [place], [address] Eosinophils/100 WBC (Bld) 3.0 % Normal 0-5 [facility] Comment on above: Performed By: #### L 500.2500, L100.0100 ####[facility] [address] [place], [address] Erythrocyte distribution width (RBC) [Ratio] 13.7 % Normal 11.6-14.6 [facility] Comment on above: Performed By: #### L 500.2500, L100.0100 ####[facility] [address] [place], [address] Hematocrit (Bld) [Volume fraction] 37.5 % Low 40-54 [facility] Comment on above: Performed By: #### L 500.2500, L100.0100 ####[facility] [address] [place], [address] Hemoglobin (Bld) [Mass/Vol] 11.5 g/dL Low 13.0-16.5 [facility] Comment on above: Performed By: #### L 500.2500, L100.0100 ####[facility] [address] [place], [address] IG% 0.300 Normal 0.0-0.9 [facility] Comment on above: Result Comment: IG% - Immature Granulocytes (promyelocytes, myelocytes andmetamyelocytes) > 1% indicates that a LEFT SHIFT is Present. Performed By: #### L 500.2500, L100.0100 ####[facility] [address] [place], [address] Lymphocytes/100 WBC (Bld) 19.5 % Normal 19-41 [facility] Comment on above: Performed By: #### L 500.2500, L100.0100 ####[facility] [address] [place], [address] MCH (RBC) [Entitic mass] 27.7 pg Normal 27.0-32.0 [facility] Comment on above: Performed By: #### L 500.2500, L100.0100 ####[facility] [address] [place], [address] MCHC (RBC) [Mass/Vol] 30.7 g/dL Low 32-36 [facility] Comment on above: Performed By: #### L 500.2500, L100.0100 ####[facility] [address] [place], [address] MCV (RBC) [Entitic vol] 90.4 fL Normal 80-94 [facility] Comment on above: Performed By: #### L 500.2500, L100.0100 ####[facility] [address] [place], [address] Monocytes/100 WBC (Bld) 8.9 % Normal 0-10 [facility] Comment on above: Performed By: #### L 500.2500, L100.0100 ####[facility] [address] [place], [address] Neutrophils/100 WBC (Bld) 67.3 % Normal 47-70 [facility] Comment on above: Performed By: #### L 500.2500, L100.0100 ####[facility] [address] [place], [address] Nucleated RBC (Bld) [#/Vol] 0 10*3/uL Normal 0-5 [facility] Comment on above: Performed By: #### L 500.2500, L100.0100 ####[facility] [address] [place], [address] Platelet mean volume (Bld) [Entitic vol] 9.7 fL Normal 6.2-12.0 [facility] Comment on above: Performed By: #### L 500.2500, L100.0100 ####[facility] [address] [place], [address] Platelets (Bld) [#/Vol] 299 10*3/uL Normal 150-450 [facility] Comment on above: Performed By: #### L 500.2500, L100.0100 ####[facility] [address] [place], [address] RBC (Bld) [#/Vol] 4.15 10*6/uL Low 4.6-6.2 [facility] Comment on above: Performed By: #### L 500.2500, L100.0100 ####[facility] [address] [place], [address] RDW SD 44.8 fl High 35.1-43.9 [facility] Comment on above: Performed By: #### L 500.2500, L100.0100 ####[facility] [address] [place], [address] WBC (Bld) [#/Vol] 5.9 10*3/uL Normal 4.4-11.0 [facility] Comment on above: Performed By: #### L 500.2500, L100.0100 ####[facility] [address] [place], [address] CO2 (BldV) [Moles/Vol]Ordere d By: Shilpa Contreras on 12-13-2024 CO2 [Moles/Vol] 28 mmol/L 23-33 [facility] Carbon dioxide, total [Moles /volume] in Central venous bloodOrdered By: Charis Walker on 12-13-2024 CO2 [Moles/Vol] 24.4 mmol/L 21.0-32.0 [facility] Chest 1 View (Portable)on Chest 1 View (Portable) Normal [facility] Chloride assayOrdered By: Ame Walker on 12-13-2024 Chloride [Moles/Vol] 104 mmol/L 98-108 [facility] Emergency Department Summary on 12-13-2024 Emergency [address] Summary Normal [facility] Eosinophil percentageOrdered By: Charis Walker on 12-13-2024 Eosinophils/100 WBC (Bld) 3.0 % 0-5 [facility] Erythrocyte distribution wid th ratioOrdered By: Charis Walker on 12-13-2024 Erythrocyte distribution width (RBC) [Ratio] 13.7 % 11.6-14.6 [facility] Erythrocyte distribution wid th standard deviationOrdered By: Charis Walker on 12-13-2024 Erythrocyte distribution width (RBC) [Ratio] 44.8 fl High 35.1-43.9 [facility] Glomerular filtration rate ( GFR) estimation/1.73 sq m using serum, plasma, or whole bOrdered By: Charis Walker on 12-13-2024 GFR/1.73 sq M.predicted among non-blacks MDRD (S/P/Bld) [Vol rate/Area] 69 mL/min/{1.73_m2} >60 [facility] Comment on above: mL/min/1.73m2 CKD-EP I Creatinine Equation (2020) H AND P Exam - Hospitaliston 12-13-2024 H&P Exam - Hospitalist Normal [facility] Hematocrit Auto (Bld) [Volum e fraction]Ordered By: Charis Walker on 12-13-2024 Hematocrit (Bld) [Volume fraction] 37.5 % Low 40-54 [facility] Hemoglobin measurementOrdere d By: Charis Walker on 12-13-2024 Hemoglobin (Bld) [Mass/Vol] 11.5 g/dL Low 13.0-16.5 [facility] Immature granulocytes/100 WB C Auto (Bld)Ordered By: Charis Walker on 12-13-2024 Immature granulocytes/100 WBC (Bld) 0.300 % 0.0-0.9 [facility] Comment on above: IG% - Immature Granu locytes (promyelocytes, myelocytes and metamyelocytes) > 1% indicates that a LEFT SHIFT is Present. Influenza virus A and B and SARS-CoV-2 (COVID-19) and Respiratory syncytial virus RNAOrdered By: Charis Walker on 12-13-2024 SARS-CoV-2 (COVID-19) RNA ALEENA+probe Ql (Unsp spec) [facility] International normalized rat io (INR) calculationOrdered By: Charis Walker on 12-13-2024 INR Coag (Bld) [Relative time] 0.9 {INR} [facility] L509.7001on 12-13-2024 Procalcitonin 0.05 ng/mL Normal <=0.10 [facility] Comment on above: Result Comment: Inte rpretation:<0.10-0.25 ng/mL: Antibiotic therapy discouraged. Bacterialinfection unlikely.0.25-0.50 ng/mL: Antibiotic therapy encouraged. Bacterialinfection possible.>0.50 ng/mL: Antibiotic therapy strongly encouraged.Suggestive of presence of bacterial infection.PCT should always be interpreted in the clinical context ofthe patient. Therefore, clinicians should use the PCTresults in conjunction with other laboratory findings andclinical signs of the patient. Performed By: #### L 509.7001 ####[facility] [address] [place], [address] M100.678on 12-13-2024 M100.678 Pending SARS-CoV-2 (COVID 19) Negative INFLUENZA A Negative INFLUENZA B Negative RSV PCR Negative Normal [facility] Comment on above: Performed By: #### M 100.678 ####[facility] [address] [place], [address] MCV (mean corpuscular volume ) determinationOrdered By: Charis Walker on 12-13-2024 MCV (RBC) [Entitic vol] 90.4 fL 80-94 [facility] Mean corpuscular hemoglobin (MCH) determinationOrdered By: Charis Walker on 12-13-2024 MCH (RBC) [Entitic mass] 27.7 pg 27.0-32.0 [facility] Mean corpuscular hemoglobin concentration (MCHC) determinationOrdered By: Charis Walker on 12-13-2024 MCHC (RBC) [Mass/Vol] 30.7 g/dL Low 32-36 [facility] Mean platelet volume determi nationOrdered By: Charis Walker on 12-13-2024 Platelet mean volume (Bld) [Entitic vol] 9.7 fL 6.2-12.0 [facility] Monocyte percentageOrdered B y: Charis Walker on 12-13-2024 Monocytes/100 WBC (Bld) 8.9 % 0-10 [facility] Neutrophil percentageOrdered By: Charis Walker on 12-13-2024 Neutrophils/100 WBC (Bld) 67.3 % 47-70 [facility] No Panel InformationOrdered By: Shilpa Contreras on 12-13-2024 Blood Gas Sample Site Not entered [facility] Blood Gas Specimen Type LASHAE [facility] Oxygen Delivery Device Cannula [facility] LASHAE [facility] Not entered [facility] Cannula [facility] Nucleated red blood cell per centageOrdered By: Charis Walker on 12-13-2024 Nucleated RBC/100 WBC (Bld) [Ratio] 0 % 0-5 [facility] Platelet countOrdered By: Ame Walker on 12-13-2024 Platelets (Bld) [#/Vol] 299 10*3/uL 150-450 [facility] Potassium measurement (mass/ volume)Ordered By: Charis Walker on 12-13-2024 Potassium (Unsp spec) [Mass/Vol] 3.7 mmol/L 3.3-5.1 [facility] Procalcitonin [Mass/volume] in Serum or Plasma by ImmunoassayOrdered By: Shilpa Contreras on 12-13-2024 Procalcitonin IA [Mass/Vol] 0.05 ng/mL <0.11 [facility] Prothrombin Time w/INRon INR Coag (PPP) [Relative time] 0.9 {INR} Normal [facility] Comment on above: Performed By: #### L 859.5350 ####[facility] [address] [place], [place], [address] PT Coag (PPP) [Time] 12.5 s Normal 11.7-14.9 [facility] Comment on above: Performed By: #### L 300.3900 ####[facility] [address] [place], [place], [id number] Prothrombin timeOrdered By: Charis Walker on 12-13-2024 PT Coag (PPP) [Time] 12.5 s 11.7-14.9 [facility] RBC Auto (Bld) [#/Vol]Ordere d By: Charis Walker on 12-13-2024 RBC (Bld) [#/Vol] 4.15 10*6/uL Low 4.6-6.2 [facility] Respiratory pathogens detect ion panel by molecular detection methodOrdered By: Shilpa Contreras on 12-13-2024 Respiratory pathogens DNA and RNA panel ALEENA+probe (Resp) [facility] Serum creatinine measurement (mass/volume)Ordered By: Charis Walker on 12-13-2024 Creatinine [Mass/Vol] 1.11 mg/dL 0.70-1.20 [facility] Serum glucose measurement (m ass/volume)Ordered By: Charis Walker on 12-13-2024 Glucose [Mass/Vol] 102 mg/dL High 70-99 [facility] Serum or plasma calcium luis urement (mass/volume)Ordered By: [facility] on 12-13-2024 Calcium [Mass/Vol] 9.7 mg/dL 7.6-11.0 [facility] Serum or plasma urea nitroge n measurement (mass/volume)Ordered By: Charis Walker on 12-13-2024 Urea nitrogen [Mass/Vol] 12 mg/dL 4-19 [facility] Sodium levelOrdered By: Nelson Walker on 12-13-2024 Sodium [Moles/Vol] 141 mmol/L 133-145 [facility] Venous Blood Gason 5 Blood Gas Type LASHAE Normal [facility] Comment on above: Performed By: #### L 9000.0810 ####[facility] [address] [place], [place], [address] CO2 [Moles/Vol] 28 mmol/L Normal 23-33 [facility] Comment on above: Performed By: #### L 9000.0810 ####[facility] [address] [place], [address] [facility] Comment on above: Performed By: #### L 9000.0810 ####[facility] [address] [place], [address] HCO3 (Bld) [Moles/Vol] 26 mmol/L Normal 22-26 [facility] Comment on above: Performed By: #### L 9000.0810 ####[facility] [address] [place], [address] O2 Delivery Dev Cannula Normal [facility] Comment on above: Performed By: #### L 9000.0810 ####[facility] [address] [place], [address] SITE Not entered Normal [facility] Comment on above: Performed By: #### L 9000.0810 ####[facility] [address] [place], [address] VBG BE 2 mmol/L Normal -1.0-3.5 [facility] Comment on above: Performed By: #### L 9000.0810 ####[facility] [address] [place], [address] VBG pCO2 42.7 mmHg Normal 41-51 [facility] Comment on above: Performed By: #### L 9000.0810 ####[facility] [address] [place], [address] VBG pH 7.40 Normal 7.32-7.42 [facility] Comment on above: Performed By: #### L 9000.0810 ####[facility] [address] [place], [address] VBG PO2 56 mmHg High 25-40 [facility] Comment on above: Performed By: #### L 9000.0810 ####[facility] [address] [place], [place], [address] VBG SO2 89 High 50-70 [facility] Comment on above: Performed By: #### L 9000.0810 ####[facility] [address] [place], [place], [address] Venous blood base excess arlyn surementOrdered By: Shilpa Contreras on 12-13-2024 Base excess Calc (BldV) [Moles/Vol] 2 mmol/L -1.0-3.5 [facility] Venous blood bicarbonate arlyn surementOrdered By: Shilpa Contreras on 12-13-2024 HCO3 (Bld) [Moles/Vol] 26 mmol/L 22-26 [facility] Venous blood oxygen saturati on measurementOrdered By: Shilpa Contreras on 12-13-2024 Oxygen saturation in Blood 89 % High 50-70 [facility] Venous blood pH measurementO rdered By: Shilpa Contreras on 12-13-2024 pH (BldV) 7.40 [pH] 7.32-7.42 [facility] Venous blood partial pressur e of carbon dioxide measurementOrdered By: Shilpa Contreras on 12-13-2024 CO2 (BldV) [Partial pressure] 42.7 mm[Hg] 41-51 [facility] Venous blood partial pressur e of oxygen measurementOrdered By: Shilpa Contreras on 12-13-2024 Oxygen (BldV) [Partial pressure] 56 mm[Hg] High 25-40 [facility] White blood cell (WBC) count Ordered By: Charis Walker on 12-13-2024 WBC (Bld) [#/Vol] 5.9 10*3/uL 4.4-11.0 [facility] CBC W Auto Differential pane l (Bld)on 12-12-2024 Basophils (Bld) [#/Vol] 0.09 10*3/uL [facility] Basophils/100 WBC (Bld) 1.5 % C [facility] Differential cell count method Nom (Bld) Auto [facility] Eosinophils (Bld) [#/Vol] 0.22 10*3/uL [facility] Eosinophils/100 WBC (Bld) 3.7 % [facility] Erythrocyte distribution width (RBC) [Ratio] 13.8 % 11.5 - 15.0 % [facility] Hematocrit (Bld) [Volume fraction] 38.3 % Low 39.0 - 51.0 % [facility] Hemoglobin (Bld) [Mass/Vol] 11.7 g/dL Low 13.0 - 17.0 g/dL [facility] Immature granulocytes (Bld) [#/Vol] [facility] Immature granulocytes/100 WBC (Bld) 0.3 % [facility] Interpretation and review of laboratory results Abnormal [facility] Lymphocytes (Bld) [#/Vol] 0.8 10*3/uL Low [facility] Lymphocytes/100 WBC (Bld) 13.6 % [facility] MCH (RBC) [Entitic mass] 27.9 pg 26. 0 - 34.0 pg [facility] MCHC (RBC) [Mass/Vol] 30.5 g/dL 30.5 - 36.0 g/dL [facility] MCV (RBC) [Entitic vol] 91.4 fL 80.0 - 100.0 fL [facility] Monocytes (Bld) [#/Vol] 0.51 10*3/uL [facility] Monocytes/100 WBC (Bld) 8.7 % C [facility] Neutrophils (Bld) [#/Vol] 4.25 10*3/uL [facility] Neutrophils/100 WBC (Bld) 72.2 % [facility] Nucleated RBC (Bld) [#/Vol] [facility] Nucleated RBC/100 WBC (Bld) [Ratio] 0 % /100 WBC [facility] Platelet mean volume (Bld) [Entitic vol] 10.5 fL 9.0 - 12.7 fL [facility] Platelets (Bld) [#/Vol] 310 10*3/uL [facility] RBC (Bld) [#/Vol] 4.19 10*6/uL Low 4.20 - 6.0 0 m/uL [facility] WBC (Bld) [#/Vol] 5.89 10*3/uL [facility] Anion gap in Serum or Plasma Ordered By: Carla Crane on 12-02-2024 Anion gap [Moles/Vol] 11 mmol/L -15 [facility] BUN/creatinine ratioOrdered By: Carla Crane on 12-02-2024 Urea nitrogen/Creatinine [Mass ratio] 23.5 mg/mg High - [facility] Basic Metabolic Profile (BMP )on 12-02-2024 BUN/CRE 23.5 RATIO High - [facility] Comment on above: Order Comment: 307.2 Performed By: #### L 100.0500, L500.2500, L506.1001 ####[facility] [address] [place], [address] Calcium [Mass/Vol] 9.4 mg/dL Normal 7.6-11.0 [facility] Comment on above: Order Comment: 307.2 Performed By: #### L 100.0500, L500.2500, L506.1001 ####[facility] [address] [place], [address] Chloride [Moles/Vol] 104 mmol/L Normal 98-108 [facility] Comment on above: Order Comment: 307.2 Performed By: #### L 100.0500, L500.2500, L506.1001 ####[facility] [address] [place], [address] CO2 [Moles/Vol] 25.5 mmol/L Normal 21.0-32.0 [facility] Comment on above: Order Comment: 307.2 Performed By: #### L 100.0500, L500.2500, L506.1001 ####[facility] [address] [place], [address] Creatinine [Mass/Vol] 1.21 mg/dL High 0.70-1.20 [facility] Comment on above: Order Comment: 307.2 Performed By: #### L 100.0500, L500.2500, L506.1001 ####[facility] [address] [place], [address] GAP 11 Normal 5-15 [facility] Comment on above: Order Comment: 307.2 Performed By: #### L 100.0500, L500.2500, L506.1001 ####[facility] [id number] [place], [address] GFR/1.73 sq M.predicted among non-blacks MDRD (S/P/Bld) [Vol rate/Area] 62 mL/min/{1.73_m2} Normal >60 [facility] Comment on above: Order Comment: 307.2 Result Comment: mL/m in/1.73m2 CKD-EPI Creatinine Equation (2020) Performed By: #### L 100.0500, L500.2500, L506.1001 ####[facility] [id number] [place], [address] Glucose [Mass/Vol] 86 mg/dL Normal 70-99 [facility] Comment on above: Order Comment: 307.2 Performed By: #### L 100.0500, L500.2500, L506.1001 ####[facility] [id number] [place], [address] Potassium [Moles/Vol] 4.1 mmol/L Normal 3.3-5.1 [facility] Comment on above: Order Comment: 307.2 Performed By: #### L 100.0500, L500.2500, L506.1001 ####[facility] [address] [place], [address] Sodium [Moles/Vol] 141 mmol/L Normal 133-145 [facility] Comment on above: Order Comment: 307.2 Performed By: #### L 100.0500, L500.2500, L506.1001 ####[facility] [address] [place], [address] Urea nitrogen [Mass/Vol] 28 mg/dL High 4-19 [facility] Comment on above: Order Comment: 307.2 Performed By: #### L 100.0500, L500.2500, L506.1001 ####[facility] [address] [place], [address] CBC-Complete Blood Cnt No Di ffon 12-02-2024 Erythrocyte distribution width (RBC) [Ratio] 13.2 % Normal 11.6-14.6 [facility] Comment on above: Order Comment: 307.2 Performed By: #### L 100.0500, L500.2500, L506.1001 ####[facility] [address] [place], [address] Hematocrit (Bld) [Volume fraction] 35.2 % Low 40-54 [facility] Comment on above: Order Comment: 307.2 Performed By: #### L 100.0500, L500.2500, L506.1001 ####[facility] [address] [place], [address] Hemoglobin (Bld) [Mass/Vol] 11.1 g/dL Low 13.0-16.5 [facility] Comment on above: Order Comment: 307.2 Performed By: #### L 100.0500, L500.2500, L506.1001 ####[facility] [address] [place], [address] MCH (RBC) [Entitic mass] 28.6 pg Normal 27.0-32.0 [facility] Comment on above: Order Comment: 307.2 Performed By: #### L 100.0500, L500.2500, L506.1001 ####[facility] [address] [place], [address] MCHC (RBC) [Mass/Vol] 31.5 g/dL Low 32-36 [facility] Comment on above: Order Comment: 307.2 Performed By: #### L 100.0500, L500.2500, L506.1001 ####[facility] [address] [place], [address] MCV (RBC) [Entitic vol] 90.7 fL Normal 80-94 [facility] Comment on above: Order Comment: 307.2 Performed By: #### L 100.0500, L500.2500, L506.1001 ####[facility] [address] [place], [address] Platelet mean volume (Bld) [Entitic vol] 10.2 fL Normal 6.2-12.0 [facility] Comment on above: Order Comment: 307.2 Performed By: #### L 100.0500, L500.2500, L506.1001 ####[facility] [address] [place], [address] Platelets (Bld) [#/Vol] 314 10*3/uL Normal 150-450 [facility] Comment on above: Order Comment: 307.2 Performed By: #### L 100.0500, L500.2500, L506.1001 ####[facility] [address] [place], [address] RBC (Bld) [#/Vol] 3.88 10*6/uL Low 4.6-6.2 [facility] Comment on above: Order Comment: 307.2 Performed By: #### L 100.0500, L500.2500, L506.1001 ####[facility] [address] [place], [address] RDW SD 43.6 fl Normal 35.1-43.9 [facility] Comment on above: Order Comment: 307.2 Performed By: #### L 100.0500, L500.2500, L506.1001 ####[facility] [address] [place], [address] WBC (Bld) [#/Vol] 5.1 10*3/uL Normal 4.4-11.0 [facility] Comment on above: Order Comment: 307.2 Performed By: #### L 100.0500, L500.2500, L506.1001 ####[facility] [address] [place], [address] Carbon dioxide, total [Moles /volume] in Central venous bloodOrdered By: Carla Crane on 12-02-2024 CO2 [Moles/Vol] 25.5 mmol/L 21.0-32.0 [facility] Chloride assayOrdered By: Wilfredo Crane on 12-02-2024 Chloride [Moles/Vol] 104 mmol/L 98-108 [facility] Erythrocyte distribution wid th ratioOrdered By: Carla Crane on 12-02-2024 Erythrocyte distribution width (RBC) [Ratio] 13.2 % 11.6-14.6 [facility] Erythrocyte distribution wid th standard deviationOrdered By: Carla Crane on 12-02-2024 Erythrocyte distribution width (RBC) [Ratio] 43.6 fl 35.1-43.9 [facility] Glomerular filtration rate ( GFR) estimation/1.73 sq m using serum, plasma, or whole bOrdered By: Carla Crane on 12-02-2024 GFR/1.73 sq M.predicted among non-blacks MDRD (S/P/Bld) [Vol rate/Area] 62 mL/min/{1.73_m2} >60 [facility] Comment on above: mL/min/1.73m2 CKD-EP I Creatinine Equation (2020) Hematocrit Auto (Bld) [Volum e fraction]Ordered By: Carla Crane on 12-02-2024 Hematocrit (Bld) [Volume fraction] 35.2 % Low 40-54 [facility] Hemoglobin measurementOrdere d By: Carla Crane on 12-02-2024 Hemoglobin (Bld) [Mass/Vol] 11.1 g/dL Low 13.0-16.5 [facility] MCV (mean corpuscular volume ) determinationOrdered By: Carla Crane on 12-02-2024 MCV (RBC) [Entitic vol] 90.7 fL 80-94 [facility] Mean corpuscular hemoglobin (MCH) determinationOrdered By: Carla Crane on 12-02-2024 MCH (RBC) [Entitic mass] 28.6 pg 27.0-32.0 [facility] Mean corpuscular hemoglobin concentration (MCHC) determinationOrdered By: Carla Crane on 12-02-2024 MCHC (RBC) [Mass/Vol] 31.5 g/dL Low 32-36 [facility] Mean platelet volume determi nationOrdered By: Carla Crane on 12-02-2024 Platelet mean volume (Bld) [Entitic vol] 10.2 fL 6.2-12.0 [facility] Platelet countOrdered By: Wilfredo Crane on 12-02-2024 Platelets (Bld) [#/Vol] 314 10*3/uL 150-450 [facility] Potassium measurement (mass/ volume)Ordered By: Carla Crane on 12-02-2024 Potassium (Unsp spec) [Mass/Vol] 4.1 mmol/L 3.3-5.1 [facility] RBC Auto (Bld) [#/Vol]Ordere d By: Carla Crane on 12-02-2024 RBC (Bld) [#/Vol] 3.88 10*6/uL Low 4.6-6.2 [facility] Serum creatinine measurement (mass/volume)Ordered By: Carla Crane on 12-02-2024 Creatinine [Mass/Vol] 1.21 mg/dL High 0.70-1.20 [facility] Serum glucose measurement (m ass/volume)Ordered By: Carla Crane on 12-02-2024 Glucose [Mass/Vol] 86 mg/dL 70-99 [facility] Serum or plasma calcium luis urement (mass/volume)Ordered By: Carla Crane on 12-02-2024 Calcium [Mass/Vol] 9.4 mg/dL 7.6-11.0 [facility] Serum or plasma urea nitroge n measurement (mass/volume)Ordered By: Carla Crane on 12-02-2024 Urea nitrogen [Mass/Vol] 28 mg/dL High 4-19 [facility] Sodium levelOrdered By: Luca Crane on 12-02-2024 Sodium [Moles/Vol] 141 mmol/L 133-145 [facility] Vitamin D,25 Hydroxyon 12-02 Vitamin D 25-OH 46.6 ng/mL Normal 30-100 [facility] Comment on above: Order Comment: 307.2 Result Comment: Teri min D StatusDeficiency: <20 ng/mL (50nmol/L)Insufficiency: 20-30 ng/mL (50-75 nmol/L)Sufficiency: 30-100 ng/mL (75-250 nmol/L)Toxicity: >100 ng/mL (>250 nmol/L) Performed By: #### L 100.0500, L500.2500, L506.1001 ####[facility] [address] [place], [place], [id number] White blood cell (WBC) count Ordered By: Carla Crane on 12-02-2024 WBC (Bld) [#/Vol] 5.1 10*3/uL 4.4-11.0 [facility] Calculated very low density lipoprotein (VLDL) cholesterol measurementOrdered By: Carla Carne on 11-05-2024 Calculated very low density lipoprotein (VLDL) cholesterol measurement 13 mg/dL 5-40 [facility] LDL calc ser/plasOrdered By: Carla Crane on 11-05-2024 Cholesterol in LDL [Mass/Vol] 63 mg/dL [facility] Comment on above: Wwzxpthfhl=456-361 m g/dL & Higher Zwdt=115 mg/dL or greater Lipid Profileon 11-05-2024 CHOL:HDL 2.[address] [facility] Comment on above: Order Comment: 307.2 Performed By: #### L 500.4100, L506.1001 ####[facility] [address] [place], [place], [id number] Cholesterol [Mass/Vol] 140 mg/dL Normal <=200 [facility] Comment on above: Order Comment: 307.2 Result Comment: Chol esterol level, Desirable <200 mg/dLBorderline high cholesterol 200-239 mg/dLHigh cholesterol >=240 mg/dLRecommendations of the NCEP Adult Treatment Panel for thefollowing risk-cutoff thresholds for the [place] Americanpulation. Performed By: #### L 500.4100, L506.1001 ####[facility] [address] [place], [address] Cholesterol in HDL [Mass/Vol] 64 mg/dL Normal [facility] Comment on above: Order Comment: 307.2 Result Comment: Yasmin onal Cholesterol Education Program (NCEP) guidelines:<40 mg/dL: Low HDL-cholesterol (major risk factor for CHD)>= 60 mg/dL: High HDL-cholesterol (negative risk factor forCHD)HDL-cholesterol is affected by a number of factors, e.g.smoking, exercise, hormones, sex and age. Performed By: #### L 500.4100, L506.1001 ####[facility] [address] [place], [address] Cholesterol in LDL [Mass/Vol] 63 mg/dL Normal [facility] Comment on above: Order Comment: 307.2 Result Comment: Bord nxlvvt=934-597 mg/dL Higher Gqes=368 mg/dL or greater Performed By: #### L 500.4100, L506.1001 ####[facility] [address] [place], [address] Cholesterol in VLDL [Mass/Vol] 13 mg/dL Normal 5-40 [facility] Comment on above: Order Comment: 307.2 Performed By: #### L 500.4100, L506.1001 ####[facility] [address] [place], [address] Triglyceride [Mass/Vol] 63 mg/dL Normal [facility] Comment on above: Order Comment: 307.2 Result Comment: The drugs N-Acetylcysteine and Metamizole may falselydepress this assay.Normal range: <150 mg/dLBorderline High: 150-199 mg/dLHigh: 200-499 mg/dLVery High: >500 mg/dL Performed By: #### L 500.4100, L506.1001 ####[facility] [address] [place], [address] Screening total cholesterol/ high density lipoprotein (HDL) cholesterol ratioOrdered By: Carla Crane on 11-05-2024 Cholesterol.total/Choles terol in HDL [Mass ratio] 2.18 {ratio} [facility] Serum or plasma cholesterol in HDL measurement (mass/volume)Ordered By: Carla Crane on 11-05-2024 Cholesterol in HDL [Mass/Vol] 64 mg/dL >40 [facility] Comment on above: National Cholesterol Education Program (NCEP) guidelines:<40 mg/dL: Low HDL-cholesterol (major risk factor for CHD)>= 60 mg/dL: High HDL-cholesterol (negative risk factor for CHD)HDL-cholesterol is affected by a number of factors, e.g. smoking, exercise, hormones, sex and age. Serum or plasma cholesterol measurement (mass/volume)Ordered By: Carla Crane on 11-05-2024 Cholesterol [Mass/Vol] 140 mg/dL <201 [facility] Comment on above: Cholesterol level, D esirable <200 mg/dLBorderline high cholesterol 200-239 mg/dLHigh cholesterol >=240 mg/dLRecommendations of the NCEP Adult Treatment Panel for the following risk-cutoff thresholds for the [place] population. Triglycerides measurementOrd ered By: Carla Crane on 11-05-2024 Triglyceride [Mass/Vol] 63 mg/dL <199 [facility] Comment on above: The drugs N-Acetylcy steine and Metamizole may falsely depress this assay. Normal range: <150 mg/dLBorderline High: 150-199 mg/dLHigh: 200-499 mg/dLVery High: >500 mg/dL Vitamin D,25 Hydroxyon 11-05 Vitamin D 25-OH 51.2 ng/mL Normal 30-100 [facility] Comment on above: Order Comment: 307.2 Result Comment: Teri min D StatusDeficiency: <20 ng/mL (50nmol/L)Insufficiency: 20-30 ng/mL (50-75 nmol/L)Sufficiency: 30-100 ng/mL (75-250 nmol/L)Toxicity: >100 ng/mL (>250 nmol/L) Performed By: #### L 500.3000, L506.1001 ####[facility] [address] [place], [address] Lipid Profileon 11-04-2024 CHOL Normal <=200 [facility] Comment on above: Order Comment: 307-2 Result Comment: MICHOACANO ENT REFUSED-NOTFIED NURSE Performed By: #### L 500.4100 ####[facility] [address] [place], [address] CHOL:HDL Normal [facility] Comment on above: Order Comment: 307-2 Result Comment: MICHOACANO ENT REFUSED-NOTFIED NURSE Performed By: #### L 500.4100 ####[facility] [address] [place], [address] [facility] Comment on above: Order Comment: 307-2 Result Comment: MICHOACANO ENT REFUSED-NOTFIED NURSE Performed By: #### L 500.4100 ####[facility] [address] [place], [address] [facility] Comment on above: Order Comment: 307-2 Result Comment: MICHOACANO ENT REFUSED-NOTFIED NURSE Performed By: #### L 500.4100 ####[facility] [address] [place], [address] [facility] Comment on above: Order Comment: 307-2 Result Comment: MICHOACANO ENT REFUSED-NOTFIED NURSE Performed By: #### L 500.4100 ####[facility] [address] [place], [address] VLDL Normal 5-40 [facility] Comment on above: Order Comment: 307-2 Result Comment: MICHOACANO ENT REFUSED-NOTFIED NURSE Performed By: #### L 500.4100 ####[facility] [address] [place], [address] Carbamazepine (Tegretol)on 0 10-16-2024 CARBAMAZEPINE 7.1 ug/mL Normal 4.0-12.0 [facility] Comment on above: Order Comment: 300 Performed By: #### L 501.7900 ####[facility] [address] [place], [address] Serum or plasma carbamazepin e level (mass/volume)Ordered By: Carla Crane on 10-16-2024 carBAMazepine [Mass/Vol] 7.1 ug/mL 4.0-12.0 [facility] Urine Cultureon 09-08-[address] [facility] Comment on above: Performed By: #### M 100.2200, L400.0001 ####[facility] [address] [place], [address] Anion gap in Serum or Plasma Ordered By: Celia Toribio on 09-02-2024 Anion gap [Moles/Vol] 11 mmol/L 5-15 [facility] BUN/creatinine ratioOrdered By: Celia Toribio on 09-02-2024 Urea nitrogen/Creatinine [Mass ratio] 27.0 mg/mg High 10-20 [facility] Basic Metabolic Profile (BMP )on 09-02-2024 BUN/CRE 27.[address] [facility] Comment on above: Performed By: #### L 500.2500, L100.0100 ####[facility] [address] [place], [address] Calcium [Mass/Vol] 9.2 mg/dL Normal 7.6-11.0 [facility] Comment on above: Performed By: #### L 500.2500, L100.0100 ####[facility] [address] [place], [address] Chloride [Moles/Vol] 106 mmol/L Normal 98-108 [facility] Comment on above: Performed By: #### L 500.2500, L100.0100 ####[facility] [address] [place], [address] CO2 [Moles/Vol] 20.8 mmol/L Low 21.0-32.0 [facility] Comment on above: Performed By: #### L 500.2500, L100.0100 ####[facility] [address] [place], [address] Creatinine [Mass/Vol] 1.22 mg/dL High 0.70-1.20 [facility] Comment on above: Performed By: #### L 500.2500, L100.0100 ####[facility] [address] [place], [address] ECRCL 50.54 ml/min Normal 50-250 [facility] Comment on above: Performed By: #### L 500.2500, L100.0100 ####[facility] [address] [place], [address] GAP 11 Normal 5-15 [facility] Comment on above: Performed By: #### L 500.2500, L100.0100 ####[facility] [address] [place], [address] GFR/1.73 sq M.predicted among non-blacks MDRD (S/P/Bld) [Vol rate/Area] 62 mL/min/{1.73_m2} Normal >60 [facility] Comment on above: Result Comment: mL/m in/1.73m2 CKD-EPI Creatinine Equation (2020) Performed By: #### L 500.2500, L100.0100 ####[facility] [address] [place], [address] Glucose [Mass/Vol] 99 mg/dL Normal 70-99 [facility] Comment on above: Performed By: #### L 500.2500, L100.0100 ####[facility] [address] [place], [address] Potassium [Moles/Vol] 4.0 mmol/L Normal 3.3-5.1 [facility] Comment on above: Performed By: #### L 500.2500, L100.0100 ####[facility] [address] [place], [address] Sodium [Moles/Vol] 138 mmol/L Normal 133-145 [facility] Comment on above: Performed By: #### L 500.2500, L100.0100 ####[facility] [address] [place], [address] Urea nitrogen [Mass/Vol] 33 mg/dL High 4-19 [facility] Comment on above: Performed By: #### L 500.2500, L100.0100 ####[facility] [address] [place], [address] CBC W/Diff, Automatedon 08-17 Absolute Neut Normal 2.0-7.7 [facility] Comment on above: Result Comment: Canc elled via OM: MD Ordered Performed By: #### L 500.2500, L100.0100 ####[facility] [address] [place], [address] HCT Normal 40-54 [facility] Comment on above: Result Comment: Canc elled via OM: MD Ordered Performed By: #### L 500.2500, L100.0100 ####[facility] [address] [place], [address] HGB Normal 13.0-16.5 [facility] Comment on above: Result Comment: Canc elled via OM: MD Ordered Performed By: #### L 500.2500, L100.0100 ####[facility] [address] [place], [address] MCH Normal 27.0-32.0 [facility] Comment on above: Result Comment: Canc elled via OM: MD Ordered Performed By: #### L 500.2500, L100.0100 ####[facility] [address] [place], [address] MCHC Normal 32-36 [facility] Comment on above: Result Comment: Canc elled via OM: MD Ordered Performed By: #### L 500.2500, L100.0100 ####[facility] [address] [place], [address] MCV Normal 80-94 [facility] Comment on above: Result Comment: Canc elled via OM: MD Ordered Performed By: #### L 500.2500, L100.0100 ####[facility] [address] [place], [address] NEUT% Normal 47-70 [facility] Comment on above: Result Comment: Canc elled via OM: MD Ordered Performed By: #### L 500.2500, L100.0100 ####[facility] [address] [place], [address] PLT Normal 150-450 [facility] Comment on above: Result Comment: Canc elled via OM: MD Ordered Performed By: #### L 500.2500, L100.0100 ####[facility] [address] [place], [address] RBC Normal 4.6-6.2 [facility] Comment on above: Result Comment: Canc elled via OM: MD Ordered Performed By: #### L 500.2500, L100.0100 ####[facility] [address] [place], [address] RDW CV Normal 11.6-14.6 [facility] Comment on above: Result Comment: Canc elled via OM: MD Ordered Performed By: #### L 500.2500, L100.0100 ####[facility] [address] [place], [address] RDW SD Normal 35.1-43.9 [facility] Comment on above: Result Comment: Canc elled via OM: MD Ordered Performed By: #### L 500.2500, L100.0100 ####[facility] [address] [place] [place], [address] WBC Normal 4.4-11.0 [facility] Comment on above: Result Comment: Bethanie luna via OM: Ordered Performed By: #### L 500.2500, L100.0100 ####[facility] [address] [place], [address] Carbon dioxide, total [Moles /volume] in Central venous bloodOrdered By: Celia Toribio on 09-02-2024 CO2 [Moles/Vol] 20.8 mmol/L Low 21.0-32.0 [facility] Chloride assayOrdered By: Yariel Toribio on 09-02-2024 Chloride [Moles/Vol] 106 mmol/L 98-108 [facility] Estimation of creatinine zeke aranceOrdered By: Celia Toribio on 09-02-2024 Estimated Creatinine Clearance Calc 50.54 ml/min 50-250 [facility] GFR/1.73 sq M.predicted gisella g non-blacks MDRD (S/P/Bld) [Vol rate/Area]Ordered By: Celia Toribio on 09-02-2024 Estimated GFR (MDRD) Non-Af Amer [address] >[address] [facility] Comment on above: mL/min/1.73m2 CKD-EP I Creatinine Equation (2020) Glomerular filtration rate ( GFR) estimation/1.73 sq m using serum, plasma, or whole bOrdered By: Celia Toribio on 09-02-2024 GFR/1.73 sq M.predicted among non-blacks MDRD (S/P/Bld) [Vol rate/Area] 62 mL/min/{1.73_m2} >60 [facility] Comment on above: mL/min/1.73m2 CKD-EP I Creatinine Equation (2020) Potassium (Unsp spec) [Mass/ Vol]Ordered By: Celia Toribio on 09-02-2024 Potassium [Moles/Vol] 4.0 mmol/L 3.3-5.1 [facility] Potassium measurement (mass/ volume)Ordered By: Celia Toribio on 09-02-2024 Potassium (Unsp spec) [Mass/Vol] 4.0 mmol/L 3.3-5.1 [facility] Serum creatinine measurement (mass/volume)Ordered By: Celia Toribio on 09-02-2024 Creatinine [Mass/Vol] 1.22 mg/dL High 0.70-1.20 [facility] Serum glucose measurement (m ass/volume)Ordered By: Celia Toribio on 09-02-2024 Glucose [Mass/Vol] 99 mg/dL 70-99 [facility] Serum or plasma calcium luis urement (mass/volume)Ordered By: Celia Toribio on 09-02-2024 Calcium [Mass/Vol] 9.2 mg/dL 7.6-11.0 [facility] Serum or plasma urea nitroge n measurement (mass/volume)Ordered By: Celia Toribio on 09-02-2024 Urea nitrogen [Mass/Vol] 33 mg/dL High 4-19 [facility] Sodium levelOrdered By: Rigoberto Toribio on 09-02-2024 Sodium [Moles/Vol] 138 mmol/L 133-145 [facility] Absolute lymphocyte countOrd ered By: Celia Toribio on 09-01-2024 Lymphocytes Auto (Unsp spec) [#/Vol] 1.45 10*3/uL 0.83-4.51 [facility] Absolute neutrophil countOrd ered By: Celia Toribio on 09-01-2024 Neutrophils (Bld) [#/Vol] 4.9 10*3/uL 2.0-7.7 [facility] Automated lymphocyte count a s percentage of total leukocytesOrdered By: Celia Toribio on 09-01-2024 Lymphocytes/100 WBC Auto (Unsp spec) 20.9 % 19-41 [facility] Basic Metabolic Profile (BMP )on 09-01-2024 BUN/CRE 26.8 RATIO High 10-20 [facility] Comment on above: Order Comment: PT RE FUSED REPORTED TO SEYMOUR STORY. SEYMOUR STORY SAID SHE WOULDTRY TO DRAW. Performed By: #### L 500.2809 ####[facility] [address] [place], [address] Calcium [Mass/Vol] 9.6 mg/dL Normal 7.6-11.0 [facility] Comment on above: Order Comment: PT RE FUSED REPORTED TO SEYMOUR JEZ. RN JEZ SAID SHE WOULDTRY TO DRAW. Performed By: #### L 500.2500 ####[facility] [address] [place], [address] Chloride [Moles/Vol] 102 mmol/L Normal 98-108 [facility] Comment on above: Order Comment: PT RE FUSED REPORTED TO RN JEZ. RN JEZ SAID SHE WOULDTRY TO DRAW. Performed By: #### L 500.2500 ####[facility] [address] [facility] [address] CO2 [Moles/Vol] 21.9 mmol/L Normal 21.0-32.0 [facility] Comment on above: Order Comment: PT RE FUSED REPORTED TO RN JEZ. RN JEZ SAID SHE WOULDTRY TO DRAW. Performed By: #### L 500.2500 ####[facility] [address] [facility] [address] Creatinine [Mass/Vol] 1.44 mg/dL High 0.70-1.20 [facility] Comment on above: Order Comment: PT RE FUSED REPORTED TO RN JEZ. RN JEZ SAID SHE WOULDTRY TO DRAW. Performed By: #### L 500.2500 ####[facility] [address] [facility] [address] ECRCL 42.38 ml/min Low 50-250 [facility] Comment on above: Order Comment: PT RE FUSED REPORTED TO RN JEZ. RN JEZ SAID SHE WOULDTRY TO DRAW. Performed By: #### L 500.2500 ####[facility] [address] [facility] [address] GAP 13 Normal 5-15 [facility] Comment on above: Order Comment: PT RE FUSED REPORTED TO RN JEZ. RN JEZ SAID SHE WOULDTRY TO DRAW. Performed By: #### L 500.2500 ####[facility] [address] [facility] [address] GFR/1.73 sq M.predicted among non-blacks MDRD (S/P/Bld) [Vol rate/Area] 51 mL/min/{1.73_m2} Low >60 [facility] Comment on above: Order Comment: PT RE FUSED REPORTED TO SEYMOUR STORY. RN JEZ SAID SHE WOULDTRY TO DRAW. Result Comment: mL/m in/1.73m2 CKD-EPI Creatinine Equation (2020) Performed By: #### L 500.2500 ####[facility] [address] [facility] [address] Glucose [Mass/Vol] 118 mg/dL High 70-99 [facility] Comment on above: Order Comment: PT RE FUSED REPORTED TO [facility]. RN JEZ SAID SHE WOULDTRY TO DRAW. Performed By: #### L 500.2500 ####[facility] [id number] [facility] [address] Potassium [Moles/Vol] 4.1 mmol/L Normal 3.3-5.1 [facility] Comment on above: Order Comment: PT RE FUSED REPORTED TO [facility]. RN JEZ SAID SHE WOULDTRY TO DRAW. Performed By: #### L 500.2500 ####[facility] [id number] [facility] [address] Sodium [Moles/Vol] 137 mmol/L Normal 133-145 [facility] Comment on above: Order Comment: PT RE FUSED REPORTED TO [facility]. RN JEZ SAID SHE WOULDTRY TO DRAW. Performed By: #### L 500.2500 ####[facility] [address] [facility] [address] Urea nitrogen [Mass/Vol] 39 mg/dL High 4-19 [facility] Comment on above: Order Comment: PT RE FUSED REPORTED TO [facility]. [facility] SAID SHE WOULDTRY TO DRAW. Performed By: #### L 500.2500 ####[facility] [address] [place], [address] BUN/CRE 30.2 RATIO High 10-20 [facility] Comment on above: Performed By: #### L 100.0100, L500.2500 ####[facility] [address] [place], [address] Calcium [Mass/Vol] 9.7 mg/dL Normal 7.6-11.0 [facility] Comment on above: Performed By: #### L 100.0100, L500.2500 ####[facility] [address] [place], [address] Chloride [Moles/Vol] 103 mmol/L Normal 98-108 [facility] Comment on above: Performed By: #### L 100.0100, L500.2500 ####[facility] [address] [place], [address] CO2 [Moles/Vol] 19.4 mmol/L Low 21.0-32.0 [facility] Comment on above: Performed By: #### L 100.0100, L500.2500 ####[facility] [address] [place], [address] Creatinine [Mass/Vol] 1.33 mg/dL High 0.70-1.20 [facility] Comment on above: Performed By: #### L 100.0100, L500.2500 ####[facility] [address] [place], [address] ECRCL 45.89 ml/min Low 50-250 [facility] Comment on above: Performed By: #### L 100.0100, L500.2500 ####[facility] [address] [place], [address] GAP 16 High 5-15 [facility] Comment on above: Performed By: #### L 100.0100, L500.2500 ####[facility] [address] [place], [address] GFR/1.73 sq M.predicted among non-blacks MDRD (S/P/Bld) [Vol rate/Area] 56 mL/min/{1.73_m2} Low >60 [facility] Comment on above: Result Comment: mL/m in/1.73m2 CKD-EPI Creatinine Equation (2020) Performed By: #### L 100.0100, L500.2500 ####[facility] [address] [place], [address] Glucose [Mass/Vol] 83 mg/dL Normal 70-99 [facility] Comment on above: Performed By: #### L 100.0100, L500.2500 ####[facility] [address] [place], [address] Potassium [Moles/Vol] 3.8 mmol/L Normal 3.3-5.1 [facility] Comment on above: Performed By: #### L 100.0100, L500.2500 ####[facility] [address] [place], [address] Sodium [Moles/Vol] 139 mmol/L Normal 133-145 [facility] Comment on above: Performed By: #### L 100.0100, L500.2500 ####[facility] [address] [place], [address] Urea nitrogen [Mass/Vol] 40 mg/dL High 4-19 [facility] Comment on above: Performed By: #### L 100.0100, L500.2500 ####[facility] [address] [place], [address] Basophil percentageOrdered B y: Celia Toribio on 09-01-2024 Basophils/100 WBC (Bld) 1.0 % 0-1 [facility] CBC W/Diff, Automatedon 08-17 Absolute Lymph 1.45 X10 3/uL Normal 0.83-4.51 [facility] Comment on above: Performed By: #### L 100.0100 ####[facility] [address] [place], [address] Absolute Neut 4.9 X10 3/uL Normal 2.0-7.7 [facility] Comment on above: Performed By: #### L 100.0100 ####[facility] [address] [place], [address] Basophils/100 WBC (Bld) 1.0 % Normal 0-1 [facility] Comment on above: Performed By: #### L 100.0100 ####[facility] [address] [place], [address] Eosinophils/100 WBC (Bld) 0.4 % Normal 0-5 [facility] Comment on above: Performed By: #### L 100.0100 ####[facility] [address] [place], [address] Erythrocyte distribution width (RBC) [Ratio] 13.3 % Normal 11.6-14.6 [facility] Comment on above: Performed By: #### L 100.0100 ####[facility] [address] [place], [address] Hematocrit (Bld) [Volume fraction] 43.2 % Normal 40-54 [facility] Comment on above: Performed By: #### L 100.0100 ####[facility] [address] [place], [address] Hemoglobin (Bld) [Mass/Vol] 14.1 g/dL Normal 13.0-16.5 [facility] Comment on above: Performed By: #### L 100.0100 ####[facility] [address] [place], [address] IG% 0.600 Normal 0.0-0.9 [facility] Comment on above: Result Comment: IG% - Immature Granulocytes (promyelocytes, myelocytes andmetamyelocytes) > 1% indicates that a LEFT SHIFT is Present. Performed By: #### L 100.0100 ####[facility] [address] [place], [address] Lymphocytes/100 WBC (Bld) 20.9 % Normal 19-41 [facility] Comment on above: Performed By: #### L 100.0100 ####[facility] [address] [place], [address] MCH (RBC) [Entitic mass] 31.4 pg Normal 27.0-32.0 [facility] Comment on above: Performed By: #### L 100.0100 ####[facility] [address] [place], [address] MCHC (RBC) [Mass/Vol] 32.6 g/dL Normal 32-36 [facility] Comment on above: Performed By: #### L 100.0100 ####[facility] [address] [place], [address] MCV (RBC) [Entitic vol] 96.2 fL High 80-94 [facility] Comment on above: Performed By: #### L 100.0100 ####[facility] [address] [place], [address] Monocytes/100 WBC (Bld) 6.2 % Normal 0-10 [facility] Comment on above: Performed By: #### L 100.0100 ####[facility] [address] [place], [address] Neutrophils/100 WBC (Bld) 70.9 % High 47-70 [facility] Comment on above: Performed By: #### L 100.0100 ####[facility] [address] [place], [address] Nucleated RBC (Bld) [#/Vol] 0 10*3/uL Normal 0-5 [facility] Comment on above: Performed By: #### L 100.0100 ####[facility] [address] [place], [address] Platelet mean volume (Bld) [Entitic vol] 9.5 fL Normal 6.2-12.0 [facility] Comment on above: Performed By: #### L 100.0100 ####[facility] [address] [place], [address] Platelets (Bld) [#/Vol] 367 10*3/uL Normal 150-450 [facility] Comment on above: Performed By: #### L 100.0100 ####[facility] [address] [place], [address] RBC (Bld) [#/Vol] 4.49 10*6/uL Low 4.6-6.2 [facility] Comment on above: Performed By: #### L 100.0100 ####[facility] [address] [place], [address] RDW SD 47.4 fl High 35.1-43.9 [facility] Comment on above: Performed By: #### L 100.0100 ####[facility] [address] [place], [address] WBC (Bld) [#/Vol] 6.9 10*3/uL Normal 4.4-11.0 [facility] Comment on above: Performed By: #### L 100.0100 ####[facility] [address] [place], [address] Absolute Neut Normal 2.0-7.7 [facility] Comment on above: Result Comment: Bethanie luna via TINO: Ordered Performed By: #### L 100.0100, L500.2500 ####[facility] [address] [place], [address] HCT Normal 40-54 [facility] Comment on above: Result Comment: Canc elled via OM: MD Ordered Performed By: #### L 100.0100, L500.2500 ####[facility] [address] [place], [address] HGB Normal 13.0-16.5 [facility] Comment on above: Result Comment: Canc elled via OM: MD Ordered Performed By: #### L 100.0100, L500.2500 ####[facility] [address] [place], [address] MCH Normal 27.0-32.0 [facility] Comment on above: Result Comment: Canc elled via OM: MD Ordered Performed By: #### L 100.0100, L500.2500 ####[facility] [address] [place], [address] MCHC Normal 32-36 [facility] Comment on above: Result Comment: Canc elled via OM: MD Ordered Performed By: #### L 100.0100, L500.2500 ####[facility] [address] [place], [address] MCV Normal 80-94 [facility] Comment on above: Result Comment: Canc elled via OM: MD Ordered Performed By: #### L 100.0100, L500.2500 ####[facility] [address] [place], [address] NEUT% Normal 47-70 [facility] Comment on above: Result Comment: Canc elled via OM: MD Ordered Performed By: #### L 100.0100, L500.2500 ####[facility] [address] [place], [address] PLT Normal 150-450 [facility] Comment on above: Result Comment: Canc elled via OM: MD Ordered Performed By: #### L 100.0100, L500.2500 ####[facility] [address] [place], [address] RBC Normal 4.6-6.2 [facility] Comment on above: Result Comment: Canc elled via OM: MD Ordered Performed By: #### L 100.0100, L500.2500 ####[facility] [address] [place], [address] RDW CV Normal 11.6-14.6 [facility] Comment on above: Result Comment: Canc elled via OM: MD Ordered Performed By: #### L 100.0100, L500.2500 ####[facility] [address] [place], [address] RDW SD Normal 35.1-43.9 [facility] Comment on above: Result Comment: Canc elled via OM: MD Ordered Performed By: #### L 100.0100, L500.2500 ####[facility] [address] [place], [address] WBC Normal 4.4-11.0 [facility] Comment on above: Result Comment: Canc elled via OM: MD Ordered Performed By: #### L 100.0100, L500.2500 ####[facility] [address] [place], [address] Eosinophil percentageOrdered By: Celia Toribio on 09-01-2024 Eosinophils/100 WBC (Bld) 0.4 % 0-5 [facility] Erythrocyte distribution wid th ratioOrdered By: Celia Toribio on 09-01-2024 Erythrocyte distribution width (RBC) [Ratio] 13.3 % 11.6-14.6 [facility] Erythrocyte distribution wid th standard deviationOrdered By: Celia Toribio on 09-01-2024 Erythrocyte distribution width (RBC) [Entitic vol] 47.4 fL High 35.1-43.9 [facility] Erythrocyte distribution width (RBC) [Ratio] 47.4 fl High 35.1-43.9 [facility] Hematocrit Auto (Bld) [Volum e fraction]Ordered By: Celia Toribio on 09-01-2024 Hematocrit (Bld) [Volume fraction] 43.2 % 40-54 [facility] Hemoglobin measurementOrdere d By: Celia Toribio on 09-01-2024 Hemoglobin (Bld) [Mass/Vol] 14.1 g/dL 13.0-16.5 [facility] Immature granulocytes/100 WB C Auto (Bld)Ordered By: Celia Toribio on 09-01-2024 Immature granulocytes/100 WBC (Bld) 0.600 % 0.0-0.9 [facility] Comment on above: IG% - Immature Granu locytes (promyelocytes, myelocytes and metamyelocytes) > 1% indicates that a LEFT SHIFT is Present. Lymphocytes Auto (Unsp spec) [#/Vol]Ordered By: Celia Toirbio on 09-01-2024 Lymphocytes (Bld) [#/Vol] 1.45 10*3/uL 0.83-4.51 [facility] Lymphocytes/100 WBC Auto (Un sp spec)Ordered By: Celia Toribio on 09-01-2024 Lymphocytes/100 WBC (Bld) 20.9 % 19-41 [facility] MCV (mean corpuscular volume ) determinationOrdered By: Celia Toribio on 09-01-2024 MCV (RBC) [Entitic vol] 96.2 fL High 80-94 [facility] Mean corpuscular hemoglobin (MCH) determinationOrdered By: Celia Toribio on 09-01-2024 MCH (RBC) [Entitic mass] 31.4 pg 27.0-32.0 [facility] Mean corpuscular hemoglobin concentration (MCHC) determinationOrdered By: Celia Toribio on 09-01-2024 MCHC (RBC) [Mass/Vol] 32.6 g/dL 32-36 [facility] Mean platelet volume determi nationOrdered By: Celia Toribio on 09-01-2024 Platelet mean volume (Bld) [Entitic vol] 9.5 fL 6.2-12.0 [facility] Monocyte percentageOrdered B y: Celia Toribio on 09-01-2024 Monocytes/100 WBC (Bld) 6.2 % 0-10 [facility] Neutrophil percentageOrdered By: Celia Toribio on 09-01-2024 Neutrophils/100 WBC (Bld) 70.9 % High 47-70 [facility] Nucleated red blood cell per centageOrdered By: Celia Toribio on 09-01-2024 Nucleated RBC/100 WBC (Bld) [Ratio] 0 % 0-5 [facility] Platelet countOrdered By: Yariel Toribio on 09-01-2024 Platelets (Bld) [#/Vol] 367 10*3/uL 150-450 [facility] RBC Auto (Bld) [#/Vol]Ordere d By: Celia Toribio on 09-01-2024 RBC (Bld) [#/Vol] 4.49 10*6/uL Low 4.6-6.2 [facility] White blood cell (WBC) count Ordered By: Celia Toriibo on 09-01-2024 WBC (Bld) [#/Vol] 6.9 10*3/uL 4.4-11.0 [facility] Basic Metabolic Profile (BMP )on 08-31-2024 BUN/CRE 25.7 RATIO High 10-20 [facility] Comment on above: Performed By: #### L 500.2500, L100.0100 ####[facility] [address] [place], [address] Calcium [Mass/Vol] 10.0 mg/dL Normal 7.6-11.0 [facility] Comment on above: Performed By: #### L 500.2500, L100.0100 ####[facility] [address] [place], [address] Chloride [Moles/Vol] 102 mmol/L Normal 98-108 [facility] Comment on above: Performed By: #### L 500.2500, L100.0100 ####[facility] [address] [place], [address] CO2 [Moles/Vol] 21.5 mmol/L Normal 21.0-32.0 [facility] Comment on above: Performed By: #### L 500.2500, L100.0100 ####[facility] [address] [place], [address] Creatinine [Mass/Vol] 1.16 mg/dL Normal 0.70-1.20 [facility] Comment on above: Performed By: #### L 500.2500, L100.0100 ####[facility] [address] [place], [address] ECRCL 52.61 ml/min Normal 50-250 [facility] Comment on above: Performed By: #### L 500.2500, L100.0100 ####[facility] [address] [place], [address] GAP 15 Normal 5-15 [facility] Comment on above: Performed By: #### L 500.2500, L100.0100 ####[facility] [address] [place], [address] GFR/1.73 sq M.predicted among non-blacks MDRD (S/P/Bld) [Vol rate/Area] 66 mL/min/{1.73_m2} Normal >60 [facility] Comment on above: Result Comment: mL/m in/1.73m2 CKD-EPI Creatinine Equation (2020) Performed By: #### L 500.2500, L100.0100 ####[facility] [address] [place], [address] Glucose [Mass/Vol] 93 mg/dL Normal 70-99 [facility] Comment on above: Performed By: #### L 500.2500, L100.0100 ####[facility] [address] [place], [address] Potassium [Moles/Vol] 3.8 mmol/L Normal 3.3-5.1 [facility] Comment on above: Performed By: #### L 500.2500, L100.0100 ####[facility] [address] [place], [address] Sodium [Moles/Vol] 138 mmol/L Normal 133-145 [facility] Comment on above: Performed By: #### L 500.2500, L100.0100 ####[facility] [address] [place], [address] Urea nitrogen [Mass/Vol] 30 mg/dL High 4-19 [facility] Comment on above: Performed By: #### L 500.2500, L100.0100 ####[facility] [address] [place], [address] CBC W/Diff, Automatedon 08-17 Absolute Neut Normal 2.0-7.7 [facility] Comment on above: Result Comment: Canc elled via OM: MD Ordered Performed By: #### L 500.2500, L100.0100 ####[facility] [address] [place], [address] HCT Normal 40-54 [facility] Comment on above: Result Comment: Canc elled via OM: MD Ordered Performed By: #### L 500.2500, L100.0100 ####[facility] [address] [place], [address] HGB Normal 13.0-16.5 [facility] Comment on above: Result Comment: Canc elled via OM: MD Ordered Performed By: #### L 500.2500, L100.0100 ####[facility] [address] [place], [address] MCH Normal 27.0-32.0 [facility] Comment on above: Result Comment: Canc elled via OM: MD Ordered Performed By: #### L 500.2500, L100.0100 ####[facility] [address] [place], [address] MCHC Normal 32-36 [facility] Comment on above: Result Comment: Canc elled via OM: MD Ordered Performed By: #### L 500.2500, L100.0100 ####[facility] [address] [place], [address] MCV Normal 80-94 [facility] Comment on above: Result Comment: Canc elled via OM: MD Ordered Performed By: #### L 500.2500, L100.0100 ####[facility] [address] [place], [address] NEUT% Normal 47-70 [facility] Comment on above: Result Comment: Canc elled via OM: MD Ordered Performed By: #### L 500.2500, L100.0100 ####[facility] [address] [place], [address] PLT Normal 150-450 [facility] Comment on above: Result Comment: Canc elled via OM: MD Ordered Performed By: #### L 500.2500, L100.0100 ####[facility] [address] [place], [address] RBC Normal 4.6-6.2 [facility] Comment on above: Result Comment: Canc elled via OM: MD Ordered Performed By: #### L 500.2500, L100.0100 ####[facility] [address] [place], [address] RDW CV Normal 11.6-14.6 [facility] Comment on above: Result Comment: Canc elled via OM: MD Ordered Performed By: #### L 500.2500, L100.0100 ####[facility] [address] [place], [address] RDW SD Normal 35.1-43.9 [facility] Comment on above: Result Comment: Canc elled via OM: MD Ordered Performed By: #### L 500.2500, L100.0100 ####[facility] [address] [place], [address] WBC Normal 4.4-11.0 [facility] Comment on above: Result Comment: Canc elled via OM: MD Ordered Performed By: #### L 500.2500, L100.0100 ####[facility] [address] [place], [address] Basic Metabolic Profile (BMP )on 08-30-2024 BUN/CRE 21.4 RATIO High 10-20 [facility] Comment on above: Performed By: #### L 500.2500, L100.0100 ####[facility] [address] [place], [address] Calcium [Mass/Vol] 10.1 mg/dL Normal 7.6-11.0 [facility] Comment on above: Performed By: #### L 500.2500, L100.0100 ####[facility] [address] [place], [address] Chloride [Moles/Vol] 102 mmol/L Normal 98-108 [facility] Comment on above: Performed By: #### L 500.2500, L100.0100 ####[facility] [address] [place], [address] CO2 [Moles/Vol] 22.7 mmol/L Normal 21.0-32.0 [facility] Comment on above: Performed By: #### L 500.2500, L100.0100 ####[facility] [address] [place], [address] Creatinine [Mass/Vol] 1.21 mg/dL High 0.70-1.20 [facility] Comment on above: Performed By: #### L 500.2500, L100.0100 ####[facility] [address] [place], [address] ECRCL 51.03 ml/min Normal 50-250 [facility] Comment on above: Performed By: #### L 500.2500, L100.0100 ####[facility] [address] [place], [address] GAP 13 Normal 5-15 [facility] Comment on above: Performed By: #### L 500.2500, L100.0100 ####[facility] [address] [place], [address] GFR/1.73 sq M.predicted among non-blacks MDRD (S/P/Bld) [Vol rate/Area] 62 mL/min/{1.73_m2} Normal >60 [facility] Comment on above: Result Comment: mL/m in/1.73m2 CKD-EPI Creatinine Equation (2020) Performed By: #### L 500.2500, L100.0100 ####[facility] [address] [place], [address] Glucose [Mass/Vol] 94 mg/dL Normal 70-99 [facility] Comment on above: Performed By: #### L 500.2500, L100.0100 ####[facility] [address] [place], [address] Potassium [Moles/Vol] 4.2 mmol/L Normal 3.3-5.1 [facility] Comment on above: Performed By: #### L 500.2500, L100.0100 ####[facility] [address] [place], [address] Sodium [Moles/Vol] 138 mmol/L Normal 133-145 [facility] Comment on above: Performed By: #### L 500.2500, L100.0100 ####[facility] [address] [place], [address] Urea nitrogen [Mass/Vol] 26 mg/dL High 4-19 [facility] Comment on above: Performed By: #### L 500.2500, L100.0100 ####[facility] [address] [place], [address] CBC W/Diff, Automatedon 03- Absolute Lymph 1.00 X10 3/uL Normal 0.83-4.51 [facility] Comment on above: Performed By: #### L 500.2500, L100.0100 ####[facility] [address] [place], [address] Absolute Neut 3.7 X10 3/uL Normal 2.0-7.7 [facility] Comment on above: Performed By: #### L 500.2500, L100.0100 ####[facility] [address] [place], [address] Basophils/100 WBC (Bld) 1.6 % High 0-1 [facility] Comment on above: Performed By: #### L 500.2500, L100.0100 ####[facility] [address] [place], [address] Eosinophils/100 WBC (Bld) 7.8 % High 0-5 [facility] Comment on above: Performed By: #### L 500.2500, L100.0100 ####[facility] [address] [place], [address] Erythrocyte distribution width (RBC) [Ratio] 13.3 % Normal 11.6-14.6 [facility] Comment on above: Performed By: #### L 500.2500, L100.0100 ####[facility] [address] [place], [address] Hematocrit (Bld) [Volume fraction] 41.8 % Normal 40-54 [facility] Comment on above: Performed By: #### L 500.2500, L100.0100 ####[facility] [address] [place], [address] Hemoglobin (Bld) [Mass/Vol] 13.8 g/dL Normal 13.0-16.5 [facility] Comment on above: Performed By: #### L 500.2500, L100.0100 ####[facility] [address] [place], [address] IG% 0.400 Normal 0.0-0.9 [facility] Comment on above: Result Comment: IG% - Immature Granulocytes (promyelocytes, myelocytes andmetamyelocytes) > 1% indicates that a LEFT SHIFT is Present. Performed By: #### L 500.2500, L100.0100 ####[facility] [address] [place], [address] Lymphocytes/100 WBC (Bld) 17.8 % Low 19-41 [facility] Comment on above: Performed By: #### L 500.2500, L100.0100 ####[facility] [address] [place], [address] MCH (RBC) [Entitic mass] 31.9 pg Normal 27.0-32.0 [facility] Comment on above: Performed By: #### L 500.2500, L100.0100 ####[facility] [address] [place], [address] MCHC (RBC) [Mass/Vol] 33.0 g/dL Normal 32-36 [facility] Comment on above: Performed By: #### L 500.2500, L100.0100 ####[facility] [address] [place], [address] MCV (RBC) [Entitic vol] 96.5 fL High 80-94 [facility] Comment on above: Performed By: #### L 500.2500, L100.0100 ####[facility] [address] [place], [address] Monocytes/100 WBC (Bld) 7.6 % Normal 0-10 [facility] Comment on above: Performed By: #### L 500.2500, L100.0100 ####[facility] [address] [place], [address] Neutrophils/100 WBC (Bld) 64.8 % Normal 47-70 [facility] Comment on above: Performed By: #### L 500.2500, L100.0100 ####[facility] [address] [place], [address] Nucleated RBC (Bld) [#/Vol] 0 10*3/uL Normal 0-5 [facility] Comment on above: Performed By: #### L 500.2500, L100.0100 ####[facility] [address] [place], [address] Platelet mean volume (Bld) [Entitic vol] 9.7 fL Normal 6.2-12.0 [facility] Comment on above: Performed By: #### L 500.2500, L100.0100 ####[facility] [address] [place], [address] Platelets (Bld) [#/Vol] 309 10*3/uL Normal 150-450 [facility] Comment on above: Performed By: #### L 500.2500, L100.0100 ####[facility] [address] [place], [address] RBC (Bld) [#/Vol] 4.33 10*6/uL Low 4.6-6.2 [facility] Comment on above: Performed By: #### L 500.2500, L100.0100 ####[facility] [address] [place], [address] RDW SD 47.7 fl High 35.1-43.9 [facility] Comment on above: Performed By: #### L 500.2500, L100.0100 ####[facility] [address] [place], [address] WBC (Bld) [#/Vol] 5.6 10*3/uL Normal 4.4-11.0 [facility] Comment on above: Performed By: #### L 500.2500, L100.0100 ####[facility] [address] [place], [address] Consultation - Infectious Dx on 08-30-2024 Consultation - Infectious Dx Normal [facility] Basic Metabolic Profile (BMP )on 08-29-2024 BUN/CRE 24.6 RATIO High 10-20 [facility] Comment on above: Performed By: #### L 100.0100, L500.2500 ####St. [facility] [address] [place], [address] Calcium [Mass/Vol] 10.0 mg/dL Normal 7.6-11.0 [facility] Comment on above: Performed By: #### L 100.0100, L500.2500 ####[facility] [address] [place], [address] Chloride [Moles/Vol] 104 mmol/L Normal 98-108 [facility] Comment on above: Performed By: #### L 100.0100, L500.2500 ####[facility] [address] [place], [address] CO2 [Moles/Vol] 22.8 mmol/L Normal 21.0-32.0 [facility] Comment on above: Performed By: #### L 100.0100, L500.2500 ####[facility] [address] [place], [address] Creatinine [Mass/Vol] 1.21 mg/dL High 0.70-1.20 [facility] Comment on above: Performed By: #### L 100.0100, L500.2500 ####[facility] [address] [place], [address] ECRCL 51.03 ml/min Normal 50-250 [facility] Comment on above: Performed By: #### L 100.0100, L500.2500 ####[facility] [address] [place], [address] GAP 14 Normal 5-15 [facility] Comment on above: Performed By: #### L 100.0100, L500.2500 ####[facility] [address] [place], [address] GFR/1.73 sq M.predicted among non-blacks MDRD (S/P/Bld) [Vol rate/Area] 62 mL/min/{1.73_m2} Normal >60 [facility] Comment on above: Result Comment: mL/m in/1.73m2 CKD-EPI Creatinine Equation (2020) Performed By: #### L 100.0100, L500.2500 ####[facility] [address] [place], [address] Glucose [Mass/Vol] 91 mg/dL Normal 70-99 [facility] Comment on above: Performed By: #### L 100.0100, L500.2500 ####[facility] [address] [place], [address] Potassium [Moles/Vol] 4.1 mmol/L Normal 3.3-5.1 [facility] Comment on above: Performed By: #### L 100.0100, L500.2500 ####[facility] [address] [place], [address] Sodium [Moles/Vol] 141 mmol/L Normal 133-145 [facility] Comment on above: Performed By: #### L 100.0100, L500.2500 ####[facility] [address] [place], [address] Urea nitrogen [Mass/Vol] 30 mg/dL High 4-19 [facility] Comment on above: Performed By: #### L 100.0100, L500.2500 ####[facility] [address] [place], [address] CBC W/Diff, Automatedon - Absolute Lymph 1.17 X10 3/uL Normal 0.83-4.51 [facility] Comment on above: Performed By: #### L 100.0100, L500.2500 ####[facility] [address] [place], [address] Absolute Neut 3.1 X10 3/uL Normal 2.0-7.7 [facility] Comment on above: Performed By: #### L 100.0100, L500.2500 ####[facility] [address] [place], [address] Basophils/100 WBC (Bld) 1.3 % High 0-1 [facility] Comment on above: Performed By: #### L 100.0100, L500.2500 ####[facility] [address] [place], [address] Eosinophils/100 WBC (Bld) 8.2 % High 0-5 [facility] Comment on above: Performed By: #### L 100.0100, L500.2500 ####[facility] [address] [place], [address] Erythrocyte distribution width (RBC) [Ratio] 13.5 % Normal 11.6-14.6 [facility] Comment on above: Performed By: #### L 100.0100, L500.2500 ####[facility] [address] [place], [address] Hematocrit (Bld) [Volume fraction] 39.2 % Low 40-54 [facility] Comment on above: Performed By: #### L 100.0100, L500.2500 ####[facility] [address] [place], [address] Hemoglobin (Bld) [Mass/Vol] 12.8 g/dL Low 13.0-16.5 [facility] Comment on above: Performed By: #### L 100.0100, L500.2500 ####[facility] [address] [place], [address] IG% 0.400 Normal 0.0-0.9 [facility] Comment on above: Result Comment: IG% - Immature Granulocytes (promyelocytes, myelocytes andmetamyelocytes) > 1% indicates that a LEFT SHIFT is Present. Performed By: #### L 100.0100, L500.2500 ####[facility] [address] [place], [address] Lymphocytes/100 WBC (Bld) 22.3 % Normal 19-41 [facility] Comment on above: Performed By: #### L 100.0100, L500.2500 ####[facility] [address] [place], [address] MCH (RBC) [Entitic mass] 31.4 pg Normal 27.0-32.0 [facility] Comment on above: Performed By: #### L 100.0100, L500.2500 ####[facility] [address] [place], [address] MCHC (RBC) [Mass/Vol] 32.7 g/dL Normal 32-36 [facility] Comment on above: Performed By: #### L 100.0100, L500.2500 ####[facility] [address] [place], [address] MCV (RBC) [Entitic vol] 96.1 fL High 80-94 [facility] Comment on above: Performed By: #### L 100.0100, L500.2500 ####[facility] [address] [place], [address] Monocytes/100 WBC (Bld) 8.0 % Normal 0-10 [facility] Comment on above: Performed By: #### L 100.0100, L500.2500 ####[facility] [address] [place], [address] Neutrophils/100 WBC (Bld) 59.8 % Normal 47-70 [facility] Comment on above: Performed By: #### L 100.0100, L500.2500 ####[facility] [address] [place], [address] Nucleated RBC (Bld) [#/Vol] 0 10*3/uL Normal 0-5 [facility] Comment on above: Performed By: #### L 100.0100, L500.2500 ####[facility] [address] [place], [address] Platelet mean volume (Bld) [Entitic vol] 9.8 fL Normal 6.2-12.0 [facility] Comment on above: Performed By: #### L 100.0100, L500.2500 ####[facility] [address] [place], [address] Platelets (Bld) [#/Vol] 277 10*3/uL Normal 150-450 [facility] Comment on above: Performed By: #### L 100.0100, L500.2500 ####[facility] [address] [place], [address] RBC (Bld) [#/Vol] 4.08 10*6/uL Low 4.6-6.2 [facility] Comment on above: Performed By: #### L 100.0100, L500.2500 ####[facility] [address] [place], [address] RDW SD 47.8 fl High 35.1-43.9 [facility] Comment on above: Performed By: #### L 100.0100, L500.2500 ####[facility] [address] [place], [address] WBC (Bld) [#/Vol] 5.3 10*3/uL Normal 4.4-11.0 [facility] Comment on above: Performed By: #### L 100.0100, L500.2500 ####[facility] [address] [place], [address] Basic Metabolic Profile (BMP )on 08-28-2024 BUN/CRE 21.6 RATIO High 10-20 [facility] Comment on above: Performed By: #### L 100.0100, L500.2500 ####[facility] [address] [place], [address] Calcium [Mass/Vol] 9.8 mg/dL Normal 7.6-11.0 [facility] Comment on above: Performed By: #### L 100.0100, L500.2500 ####[facility] [address] [place], [address] Chloride [Moles/Vol] 105 mmol/L Normal 98-108 [facility] Comment on above: Performed By: #### L 100.0100, L500.2500 ####[facility] [address] [place], [address] CO2 [Moles/Vol] 21.9 mmol/L Normal 21.0-32.0 [facility] Comment on above: Performed By: #### L 100.0100, L500.2500 ####[facility] [address] [place], [address] Creatinine [Mass/Vol] 1.14 mg/dL Normal 0.70-1.20 [facility] Comment on above: Performed By: #### L 100.0100, L500.2500 ####[facility] [address] [place], [address] ECRCL 54.17 ml/min Normal 50-250 [facility] Comment on above: Performed By: #### L 100.0100, L500.2500 ####[facility] [address] [place], [address] GAP 13 Normal 5-15 [facility] Comment on above: Performed By: #### L 100.0100, L500.2500 ####[facility] [address] [place], [address] GFR/1.73 sq M.predicted among non-blacks MDRD (S/P/Bld) [Vol rate/Area] 67 mL/min/{1.73_m2} Normal >60 [facility] Comment on above: Result Comment: mL/m in/1.73m2 CKD-EPI Creatinine Equation (2020) Performed By: #### L 100.0100, L500.2500 ####[facility] [address] [place], [address] Glucose [Mass/Vol] 93 mg/dL Normal 70-99 [facility] Comment on above: Performed By: #### L 100.0100, L500.2500 ####[facility] [address] [place], [address] Potassium [Moles/Vol] 3.8 mmol/L Normal 3.3-5.1 [facility] Comment on above: Performed By: #### L 100.0100, L500.2500 ####[facility] [address] [place], [address] Sodium [Moles/Vol] 140 mmol/L Normal 133-145 [facility] Comment on above: Performed By: #### L 100.0100, L500.2500 ####[facility] [address] [place], [address] Urea nitrogen [Mass/Vol] 25 mg/dL High 4-19 [facility] Comment on above: Performed By: #### L 100.0100, L500.2500 ####[facility] [address] [place], [address] CBC W/Diff, Automatedon 08-17 Absolute Lymph 1.06 X10 3/uL Normal 0.83-4.51 [facility] Comment on above: Performed By: #### L 100.0100, L500.2500 ####[facility] [address] [place], [address] Absolute Neut 2.5 X10 3/uL Normal 2.0-7.7 [facility] Comment on above: Performed By: #### L 100.0100, L500.2500 ####[facility] [address] [place], [address] Basophils/100 WBC (Bld) 1.8 % High 0-1 [facility] Comment on above: Performed By: #### L 100.0100, L500.2500 ####[facility] [address] [place], [address] Eosinophils/100 WBC (Bld) 7.5 % High 0-5 [facility] Comment on above: Performed By: #### L 100.0100, L500.2500 ####[facility] [address] [place], [address] Erythrocyte distribution width (RBC) [Ratio] 13.3 % Normal 11.6-14.6 [facility] Comment on above: Performed By: #### L 100.0100, L500.2500 ####[facility] [address] [place], [address] Hematocrit (Bld) [Volume fraction] 39.0 % Low 40-54 [facility] Comment on above: Performed By: #### L 100.0100, L500.2500 ####[facility] [address] [place], [address] Hemoglobin (Bld) [Mass/Vol] 12.8 g/dL Low 13.0-16.5 [facility] Comment on above: Performed By: #### L 100.0100, L500.2500 ####[facility] [address] [place], [address] IG% 0.400 Normal 0.0-0.9 [facility] Comment on above: Result Comment: IG% - Immature Granulocytes (promyelocytes, myelocytes andmetamyelocytes) > 1% indicates that a LEFT SHIFT is Present. Performed By: #### L 100.0100, L500.2500 ####[facility] [address] [place], [address] Lymphocytes/100 WBC (Bld) 23.4 % Normal 19-41 [facility] Comment on above: Performed By: #### L 100.0100, L500.2500 ####[facility] [address] [place], [address] MCH (RBC) [Entitic mass] 31.1 pg Normal 27.0-32.0 [facility] Comment on above: Performed By: #### L 100.0100, L500.2500 ####[facility] [address] [place], [address] MCHC (RBC) [Mass/Vol] 32.8 g/dL Normal 32-36 [facility] Comment on above: Performed By: #### L 100.0100, L500.2500 ####[facility] [address] [place], [address] MCV (RBC) [Entitic vol] 94.7 fL High 80-94 [facility] Comment on above: Performed By: #### L 100.0100, L500.2500 ####[facility] [address] [place], [address] Monocytes/100 WBC (Bld) 11.3 % High 0-10 [facility] Comment on above: Performed By: #### L 100.0100, L500.2500 ####[facility] [address] [place], [address] Neutrophils/100 WBC (Bld) 55.6 % Normal 47-70 [facility] Comment on above: Performed By: #### L 100.0100, L500.2500 ####[facility] [address] [place], [address] Nucleated RBC (Bld) [#/Vol] 0 10*3/uL Normal 0-5 [facility] Comment on above: Performed By: #### L 100.0100, L500.2500 ####[facility] [address] [place], [address] Platelet mean volume (Bld) [Entitic vol] 9.8 fL Normal 6.2-12.0 [facility] Comment on above: Performed By: #### L 100.0100, L500.2500 ####[facility] [address] [place], [address] Platelets (Bld) [#/Vol] 279 10*3/uL Normal 150-450 [facility] Comment on above: Performed By: #### L 100.0100, L500.2500 ####[facility] [address] [place], [address] RBC (Bld) [#/Vol] 4.12 10*6/uL Low 4.6-6.2 [facility] Comment on above: Performed By: #### L 100.0100, L500.2500 ####[facility] [address] [place], [address] RDW SD 46.1 fl High 35.1-43.9 [facility] Comment on above: Performed By: #### L 100.0100, L500.2500 ####[facility] [address] [place], [address] WBC (Bld) [#/Vol] 4.5 10*3/uL Normal 4.4-11.0 [facility] Comment on above: Performed By: #### L 100.0100, L500.2500 ####[facility] [address] [place], [address] Basic Metabolic Profile (BMP )on 08-27-2024 BUN/CRE 17.2 RATIO Normal 10-20 [facility] Comment on above: Performed By: #### L 500.2500, L100.0100 ####[facility] [address] [place], [address] Calcium [Mass/Vol] 9.5 mg/dL Normal 7.6-11.0 [facility] Comment on above: Performed By: #### L 500.2500, L100.0100 ####[facility] [address] [place], [address] Chloride [Moles/Vol] 104 mmol/L Normal 98-108 [facility] Comment on above: Performed By: #### L 500.2500, L100.0100 ####[facility] [address] [place], [address] CO2 [Moles/Vol] 19.9 mmol/L Low 21.0-32.0 [facility] Comment on above: Performed By: #### L 500.2500, L100.0100 ####[facility] [address] [place], [address] Creatinine [Mass/Vol] 1.18 mg/dL Normal 0.70-1.20 [facility] Comment on above: Performed By: #### L 500.2500, L100.0100 ####[facility] [address] [place], [address] ECRCL 52.25 ml/min Normal 50-250 [facility] Comment on above: Performed By: #### L 500.2500, L100.0100 ####[facility] [address] [place], [address] GAP 14 Normal 5-15 [facility] Comment on above: Performed By: #### L 500.2500, L100.0100 ####[facility] [address] [place], [address] GFR/1.73 sq M.predicted among non-blacks MDRD (S/P/Bld) [Vol rate/Area] 64 mL/min/{1.73_m2} Normal >60 [facility] Comment on above: Result Comment: mL/m in/1.73m2 CKD-EPI Creatinine Equation (2020) Performed By: #### L 500.2500, L100.0100 ####[facility] [address] [place], [address] Glucose [Mass/Vol] 97 mg/dL Normal 70-99 [facility] Comment on above: Performed By: #### L 500.2500, L100.0100 ####[facility] [address] [place], [address] Potassium [Moles/Vol] 3.4 mmol/L Normal 3.3-5.1 [facility] Comment on above: Performed By: #### L 500.2500, L100.0100 ####[facility] [address] [place], [address] Sodium [Moles/Vol] 139 mmol/L Normal 133-145 [facility] Comment on above: Performed By: #### L 500.2500, L100.0100 ####[facility] [address] [place], [address] Urea nitrogen [Mass/Vol] 20 mg/dL High 4-19 [facility] Comment on above: Performed By: #### L 500.2500, L100.0100 ####[facility] [address] [place], [address] Bilirubin Test strip Ql (U)O rdered By: Celia Toribio on 08-27-2024 Bilirubin Ql (U) Negative Negative [facility] CBC W/Diff, Automatedon 08-17 Absolute Lymph 0.95 X10 3/uL Normal 0.83-4.51 [facility] Comment on above: Performed By: #### L 500.2500, L100.0100 ####[facility] [address] [place], [address] Absolute Neut 2.3 X10 3/uL Normal 2.0-7.7 [facility] Comment on above: Performed By: #### L 500.2500, L100.0100 ####[facility] [address] [place], [address] Basophils/100 WBC (Bld) 1.2 % High 0-1 [facility] Comment on above: Performed By: #### L 500.2500, L100.0100 ####[facility] [address] [place], [address] Eosinophils/100 WBC (Bld) 6.3 % High 0-5 [facility] Comment on above: Performed By: #### L 500.2500, L100.0100 ####[facility] [address] [place], [address] Erythrocyte distribution width (RBC) [Ratio] 13.3 % Normal 11.6-14.6 [facility] Comment on above: Performed By: #### L 500.2500, L100.0100 ####[facility] [address] [place], [address] Hematocrit (Bld) [Volume fraction] 38.4 % Low 40-54 [facility] Comment on above: Performed By: #### L 500.2500, L100.0100 ####[facility] [address] [place], [address] Hemoglobin (Bld) [Mass/Vol] 12.8 g/dL Low 13.0-16.5 [facility] Comment on above: Performed By: #### L 500.2500, L100.0100 ####[facility] [address] [place], [address] IG% 0.200 Normal 0.0-0.9 [facility] Comment on above: Result Comment: IG% - Immature Granulocytes (promyelocytes, myelocytes andmetamyelocytes) > 1% indicates that a LEFT SHIFT is Present. Performed By: #### L 500.2500, L100.0100 ####[facility] [address] [place], [address] Lymphocytes/100 WBC (Bld) 23.0 % Normal 19-41 [facility] Comment on above: Performed By: #### L 500.2500, L100.0100 ####[facility] [address] [place], [address] MCH (RBC) [Entitic mass] 31.4 pg Normal 27.0-32.0 [facility] Comment on above: Performed By: #### L 500.2500, L100.0100 ####[facility] [address] [place], [address] MCHC (RBC) [Mass/Vol] 33.3 g/dL Normal 32-36 [facility] Comment on above: Performed By: #### L 500.2500, L100.0100 ####[facility] [address] [place], [address] MCV (RBC) [Entitic vol] 94.3 fL High 80-94 [facility] Comment on above: Performed By: #### L 500.2500, L100.0100 ####[facility] [address] [place], [address] Monocytes/100 WBC (Bld) 13.1 % High 0-10 [facility] Comment on above: Performed By: #### L 500.2500, L100.0100 ####[facility] [address] [place], [address] Neutrophils/100 WBC (Bld) 56.2 % Normal 47-70 [facility] Comment on above: Performed By: #### L 500.2500, L100.0100 ####[facility] [address] [place], [address] Nucleated RBC (Bld) [#/Vol] 0 10*3/uL Normal 0-5 [facility] Comment on above: Performed By: #### L 500.2500, L100.0100 ####[facility] [address] [place], [address] Platelet mean volume (Bld) [Entitic vol] 10.0 fL Normal 6.2-12.0 [facility] Comment on above: Performed By: #### L 500.2500, L100.0100 ####[facility] [address] [place], [address] Platelets (Bld) [#/Vol] 253 10*3/uL Normal 150-450 [facility] Comment on above: Performed By: #### L 500.2500, L100.0100 ####[facility] [address] [place], [address] RBC (Bld) [#/Vol] 4.07 10*6/uL Low 4.6-6.2 [facility] Comment on above: Performed By: #### L 500.2500, L100.0100 ####[facility] [address] [place], [address] RDW SD 46.1 fl High 35.1-43.9 [facility] Comment on above: Performed By: #### L 500.2500, L100.0100 ####[facility] [address] [place], [address] WBC (Bld) [#/Vol] 4.1 10*3/uL Low 4.4-11.0 [facility] Comment on above: Performed By: #### L 500.2500, L100.0100 ####[facility] [address] [place], [address] CBC-Complete Blood Cnt No Di abdulkadiron 08-27-2024 Erythrocyte distribution width (RBC) [Ratio] 13.4 % Normal 11.6-14.6 [facility] Comment on above: Performed By: #### L 100.0500 ####[facility] [address] [place], [address] Hematocrit (Bld) [Volume fraction] 40.6 % Normal 40-54 [facility] Comment on above: Performed By: #### L 100.0500 ####[facility] [address] [place], [address] Hemoglobin (Bld) [Mass/Vol] 13.5 g/dL Normal 13.0-16.5 [facility] Comment on above: Performed By: #### L 100.0500 ####[facility] [address] [place], [address] MCH (RBC) [Entitic mass] 31.5 pg Normal 27.0-32.0 [facility] Comment on above: Performed By: #### L 100.0500 ####[facility] [address] [place], [address] MCHC (RBC) [Mass/Vol] 33.3 g/dL Normal 32-36 [facility] Comment on above: Performed By: #### L 100.0500 ####[facility] [address] [place], [address] MCV (RBC) [Entitic vol] 94.6 fL High 80-94 [facility] Comment on above: Performed By: #### L 100.0500 ####[facility] [address] [place], [address] Platelet mean volume (Bld) [Entitic vol] 9.8 fL Normal 6.2-12.0 [facility] Comment on above: Performed By: #### L 100.0500 ####[facility] [address] [place], [address] Platelets (Bld) [#/Vol] 283 10*3/uL Normal 150-450 [facility] Comment on above: Performed By: #### L 100.0500 ####[facility] [address] [place], [address] RBC (Bld) [#/Vol] 4.29 10*6/uL Low 4.6-6.2 [facility] Comment on above: Performed By: #### L 100.0500 ####[facility] [address] [place], [address] RDW SD 46.0 fl High 35.1-43.9 [facility] Comment on above: Performed By: #### L 100.0500 ####[facility] [address] [place], [address] WBC (Bld) [#/Vol] 4.9 10*3/uL Normal 4.4-11.0 [facility] Comment on above: Performed By: #### L 100.0500 ####[facility] [address] [place], [address] Epithelial cells.squamous LM Ql (Urine sed)Ordered By: Celia Toribio on 08-27-2024 Epithelial cells.squamous LM.HPF (Urine sed) [#/Area] 0 /[HPF] 0-5 [facility] Glucose Ql (U)Ordered By: Yariel Toribio on 08-27-2024 Urine Glucose (UA) Normal mg/dl Normal [facility] Ketones Test strip Ql (U)Ord ered By: Celia Toribio on 08-27-2024 Ketones Ql (U) Negative Negative [facility] Microscopic analysis of urin e for red blood cells (RBC)Ordered By: Celia Toribio on 08-27-2024 Microscopic analysis of urine for red blood cells (RBC) 0 SEEN /hpf 0-5 [facility] Urine RBC 0 SEEN /hpf 0-5 [facility] Mucus LM Ql (Urine sed)Order ed By: Celia Toribio on 08-27-2024 Mucus Ql (Urine sed) 0 SEEN /hpf [facility] Nitrite Test strip Ql (U)Ord ered By: Celia Toribio on 08-27-2024 Nitrite Ql (U) Positive High Negative [facility] Protein Test strip Ql (U)Ord ered By: Celia Toribio on 08-27-2024 Protein Ql (U) 30 mg/dl High Negative [facility] Squamous epithelial cells de tection in urine sediment by light microscopyOrdered By: Celia Toribio on 08-27-2024 Epithelial cells.squamous LM Ql (Urine sed) 0-5 SEEN /hpf 0-5 [facility] Urinalysis, Completeon 08-27 BACTERIA 4+ /hpf Normal None Seen [facility] Comment on above: Order Comment: CLEAN CATCH Performed By: #### M 100.2200, [id number] ####[facility] [id number] [place], [address] EPI,SQUAMOUS 0-5 SEEN Normal 0-5 [facility] Comment on above: Order Comment: CLEAN CATCH Performed By: #### M 100.2200, [id number] ####[facility] [id number] [place], [address] RBC 0 SEEN Normal 0-5 [facility] Comment on above: Order Comment: CLEAN CATCH Performed By: #### M 100.2200, [id number] ####[facility] [id number] [place], [address] WBC 25-50 SEEN Normal 0-5 [facility] Comment on above: Order Comment: CLEAN CATCH Performed By: #### M 100.2200, [id number] ####[facility] [id number] [place], [address] Mucus Ql (Urine sed) 0 SEEN Normal [facility] [facility] Comment on above: Order Comment: CLEAN CATCH Performed By: #### M 100.2200, L400.0001 ####[facility] [address] [place], [address] Urine blood detectionOrdered By: Celia Toribio on 08-27-2024 Urine Occult Blood Negative Negative [facility] Urine clarityOrdered By: Allyson Toribio on 08-27-2024 Clarity (U) Clear Clear [facility] Urine color determinationOrd ered By: Celia Toribio on 08-27-2024 Color (U) Yellow Yellow [facility] Urine cultureOrdered By: Allyson Toribio on 08-27-2024 Bacteria identified Cx Nom (U) ESBL Escherichia coli Abnormal [facility] Urine glucose detectionOrder ed By: Celia Toribio on 08-27-2024 Glucose Ql (U) Normal mg/dl Normal [facility] Urine leukocyte esterase det ection by dipstickOrdered By: Celia Toribio on 08-27-2024 Leukocyte esterase Test strip Ql (U) 500 /ul High Negative [facility] Urine pHOrdered By: Celia rapp on 08-27-2024 pH (U) 6.0 [pH] 5.0 - 8.0 [facility] Urine sediment bacteria coun t by microscopy (number/high power field)Ordered By: Celia Toribio on 08-27-2024 Bacteria LM.HPF (Urine sed) [#/Area] 4 /[HPF] None Seen [facility] Urine specific gravity measu rementOrdered By: Celia Toribio on 08-27-2024 Specific gravity (U) [Rel density] 1.015 1.002-1.030 [facility] Urine urobilinogen measureme ntOrdered By: Celia Toribio on 08-27-2024 Urobilinogen Ql (U) Normal mg/dl Normal [facility] Urobilinogen Ql (U)Ordered B y: Celia Toribio on 08-27-2024 Urine Urobilinogen Normal mg/dl Normal [facility] White blood cell countOrdere d By: Celia Toribio on 08-27-2024 Urine WBC 25-50 SEEN /hpf 0-5 [facility] White blood cell count 25-50 SEEN /hpf 0-5 [facility] Bilirubin, totalOrdered By: Lisha Talamantes on 08-26-2024 Bilirubin [Mass/Vol] 0.25 mg/dL 0.00-1.30 [facility] CBC W/Diff, Automatedon 03-1 0-2025 Absolute Lymph 0.94 X10 3/uL Normal 0.83-4.51 [facility] Comment on above: Performed By: #### L 500.4050, L501.5200, L100.0100, L501.2300 ####[facility] [address] [place], [address] Absolute Neut 2.9 X10 3/uL Normal 2.0-7.7 [facility] Comment on above: Performed By: #### L 500.4050, L501.5200, L100.0100, L501.2300 ####[facility] [address] [place], [address] Basophils/100 WBC (Bld) 1.1 % High 0-1 [facility] Comment on above: Performed By: #### L 500.4050, L501.5200, L100.0100, L501.2300 ####[facility] [address] [place], [address] Eosinophils/100 WBC (Bld) 3.4 % Normal 0-5 [facility] Comment on above: Performed By: #### L 500.4050, L501.5200, L100.0100, L501.2300 ####[facility] [address] [place], [address] Erythrocyte distribution width (RBC) [Ratio] 13.3 % Normal 11.6-14.6 [facility] Comment on above: Performed By: #### L 500.4050, L501.5200, L100.0100, L501.2300 ####[facility] [address] [place], [address] Hematocrit (Bld) [Volume fraction] 40.6 % Normal 40-54 [facility] Comment on above: Performed By: #### L 500.4050, L501.5200, L100.0100, L501.2300 ####[facility] [address] [place], [address] Hemoglobin (Bld) [Mass/Vol] 13.3 g/dL Normal 13.0-16.5 [facility] Comment on above: Performed By: #### L 500.4050, L501.5200, L100.0100, L501.2300 ####[facility] [address] [place], [address] IG% 0.200 Normal 0.0-0.9 [facility] Comment on above: Result Comment: IG% - Immature Granulocytes (promyelocytes, myelocytes andmetamyelocytes) > 1% indicates that a LEFT SHIFT is Present. Performed By: #### L 500.4050, L501.5200, L100.0100, L501.2300 ####[facility] [address] [place], [address] Lymphocytes/100 WBC (Bld) 19.8 % Normal 19-41 [facility] Comment on above: Performed By: #### L 500.4050, L501.5200, L100.0100, L501.2300 ####[facility] [address] [place], [address] MCH (RBC) [Entitic mass] 31.2 pg Normal 27.0-32.0 [facility] Comment on above: Performed By: #### L 500.4050, L501.5200, L100.0100, L501.2300 ####[facility] [address] [place], [address] MCHC (RBC) [Mass/Vol] 32.8 g/dL Normal 32-36 [facility] Comment on above: Performed By: #### L 500.4050, L501.5200, L100.0100, L501.2300 ####[facility] [address] [place], [address] MCV (RBC) [Entitic vol] 95.3 fL High 80-94 [facility] Comment on above: Performed By: #### L 500.4050, L501.5200, L100.0100, L501.2300 ####[facility] [address] [place], [address] Monocytes/100 WBC (Bld) 15.2 % High 0-10 [facility] Comment on above: Performed By: #### L 500.4050, L501.5200, L100.0100, L501.2300 ####[facility] [address] [place], [address] Neutrophils/100 WBC (Bld) 60.3 % Normal 47-70 [facility] Comment on above: Performed By: #### L 500.4050, L501.5200, L100.0100, L501.2300 ####[facility] [address] [place], [address] Nucleated RBC (Bld) [#/Vol] 0 10*3/uL Normal 0-5 [facility] Comment on above: Performed By: #### L 500.4050, L501.5200, L100.0100, L501.2300 ####[facility] [address] [place], [address] Platelet mean volume (Bld) [Entitic vol] 9.9 fL Normal 6.2-12.0 [facility] Comment on above: Performed By: #### L 500.4050, L501.5200, L100.0100, L501.2300 ####[facility] [address] [place], [address] Platelets (Bld) [#/Vol] 242 10*3/uL Normal 150-450 [facility] Comment on above: Performed By: #### L 500.4050, L501.5200, L100.0100, L501.2300 ####[facility] [address] [place], [address] RBC (Bld) [#/Vol] 4.26 10*6/uL Low 4.6-6.2 [facility] Comment on above: Performed By: #### L 500.4050, L501.5200, L100.0100, L501.2300 ####[facility] [address] [place], [address] RDW SD 46.7 fl High 35.1-43.9 [facility] Comment on above: Performed By: #### L 500.4050, L501.5200, L100.0100, L501.2300 ####[facility] [address] [place], [address] WBC (Bld) [#/Vol] 4.7 10*3/uL Normal 4.4-11.0 [facility] Comment on above: Performed By: #### L 500.4050, L501.5200, L100.0100, L501.2300 ####[facility] [address] [place], [address] COVID 19 AG RAPID (SEYMOUR Dixon)on 08-26-2024 SARS-CoV-2 (COVID-19) RNA ALEENA+probe Ql (Unsp spec) Normal [facility] Comment on above: Performed By: #### M 100.505 ####[facility] [address] [place], [address] COVID-19 virus antigen assay Ordered By: Celia Toribio on 08-26-2024 SARS-CoV-2 (COVID-19) Ag IA.rapid Ql (Resp) [facility] Comprehensive Metabolic Prof ilon 08-26-2024 Albumin [Mass/Vol] 4.0 g/dL Normal 3.4-4.8 [facility] Comment on above: Performed By: #### L 500.4050, L501.5200, L100.0100, L501.2300 ####[facility] [address] [place], [address] Albumin/Globulin [Mass ratio] 1.4 {ratio} Normal 0.9-2.4 [facility] Comment on above: Performed By: #### L 500.4050, L501.5200, L100.0100, L501.2300 ####[facility] [address] [place], [address] ALK PHOS 67 U/L Normal 40-129 [facility] Comment on above: Performed By: #### L 500.4050, L501.5200, L100.0100, L501.2300 ####[facility] [address] [place], [address] ALT [Catalytic activity/Vol] 28 U/L Normal <=46 [facility] Comment on above: Performed By: #### L 500.4050, L501.5200, L100.0100, L501.2300 ####[facility] [address] [place], [address] AST [Catalytic activity/Vol] 23 U/L Normal <=37 [facility] Comment on above: Performed By: #### L 500.4050, L501.5200, L100.0100, L501.2300 ####[facility] [address] [place], [address] Bilirubin [Mass/Vol] 0.25 mg/dL Normal 0.00-1.30 [facility] Comment on above: Performed By: #### L 500.4050, L501.5200, L100.0100, L501.2300 ####[facility] [address] [place], [address] BUN/CRE 21.8 RATIO High 10-20 [facility] Comment on above: Performed By: #### L 500.4050, L501.5200, L100.0100, L501.2300 ####[facility] [address] [place], [address] Calcium [Mass/Vol] 9.4 mg/dL Normal 7.6-11.0 [facility] Comment on above: Performed By: #### L 500.4050, L501.5200, L100.0100, L501.2300 ####[facility] [address] [place], [address] Chloride [Moles/Vol] 105 mmol/L Normal 98-108 [facility] Comment on above: Performed By: #### L 500.4050, L501.5200, L100.0100, L501.2300 ####[facility] [address] [place], [address] CO2 [Moles/Vol] 17.6 mmol/L Low 21.0-32.0 [facility] Comment on above: Performed By: #### L 500.4050, L501.5200, L100.0100, L501.2300 ####[facility] [address] [place], [address] Creatinine [Mass/Vol] 1.04 mg/dL Normal 0.70-1.20 [facility] Comment on above: Performed By: #### L 500.4050, L501.5200, L100.0100, L501.2300 ####[facility] [address] [place], [address] ECRCL 58.77 ml/min Normal 50-250 [facility] Comment on above: Performed By: #### L 500.4050, L501.5200, L100.0100, L501.2300 ####[facility] [address] [place], [address] GAP 16 High 5-15 [facility] Comment on above: Performed By: #### L 500.4050, L501.5200, L100.0100, L501.2300 ####[facility] [address] [place], [address] GFR/1.73 sq M.predicted among non-blacks MDRD (S/P/Bld) [Vol rate/Area] 75 mL/min/{1.73_m2} Normal >60 [facility] Comment on above: Result Comment: mL/m in/1.73m2 CKD-EPI Creatinine Equation (2020) Performed By: #### L 500.4050, L501.5200, L100.0100, L501.2300 ####[facility] [address] [place], [address] Globulin (S) [Mass/Vol] 2.9 g/dL Normal 2.2-4.2 [facility] Comment on above: Performed By: #### L 500.4050, L501.5200, L100.0100, L501.2300 ####[facility] [address] [place], [address] Glucose [Mass/Vol] 88 mg/dL Normal 70-99 [facility] Comment on above: Performed By: #### L 500.4050, L501.5200, L100.0100, L501.2300 ####[facility] [address] [place], [address] Potassium [Moles/Vol] 3.6 mmol/L Normal 3.3-5.1 [facility] Comment on above: Performed By: #### L 500.4050, L501.5200, L100.0100, L501.2300 ####[facility] [address] [place], [address] Sodium [Moles/Vol] 139 mmol/L Normal 133-145 [facility] Comment on above: Performed By: #### L 500.4050, L501.5200, L100.0100, L501.2300 ####[facility] [address] [place], [address] T PROT 6.9 g/dL Normal 5.9-8.4 [facility] Comment on above: Performed By: #### L 500.4050, L501.5200, L100.0100, L501.2300 ####[facility] [address] [place], [address] Urea nitrogen [Mass/Vol] 23 mg/dL High 4-19 [facility] Comment on above: Performed By: #### L 500.4050, L501.5200, L100.0100, L501.2300 ####[facility] [address] [place], [address] Laboratory - Chemistry and C hemistry - challengeOrdered By: Lisha Talamantes on 08-26-2024 AST [Catalytic activity/Vol] 23 U/L <38 [facility] Lactic Acidon 08-26-2024 Lactate [Moles/Vol] 1.1 mmol/L Normal 0.0-2.0 [facility] Comment on above: Order Comment: Y Performed By: #### L 503.6005 ####[facility] [address] [place], [address] Lactic acid measurementOrder ed By: Celia Toribio on 08-26-2024 Lactate [Moles/Vol] 1.1 mmol/L 0.0-2.0 [facility] Magnesiumon 08-26-2024 Magnesium [Mass/Vol] 1.9 mg/dL Normal 1.5-2.2 [facility] Comment on above: Performed By: #### L 500.4050, L501.5200, L100.0100, L501.2300 ####[facility] [address] [place], [place], [address] Magnesium (Unsp spec) [Mass/ Vol]Ordered By: Lisha Talamantes on 08-26-2024 Magnesium [Mass/Vol] 1.9 mg/dL 1.5-2.2 [facility] Magnesium measurement (mass/ volume)Ordered By: Lisha Talamantes on 08-26-2024 Magnesium (Unsp spec) [Mass/Vol] 1.9 mg/dL 1.5-2.2 [facility] No Panel InformationOrdered By: Lisha Talamantes on 08-26-2024 23 U/L <38 [facility] Phosphoruson 08-26-2024 Phosphate [Mass/Vol] 3.1 mg/dL Normal 2.7-4.5 [facility] Comment on above: Performed By: #### L 500.4050, L501.5200, L100.0100, L501.2300 ####[facility] [address] [place], [place], [id number] RESPIRATORY PANEL MOLECULARo n 08-26-[address] [facility] Comment on above: Performed By: #### M 100.638 ####[facility] [address] [place], [place], [id number] Respiratory pathogens DNA an d RNA panel ALEENA+probe (Resp)Ordered By: Celia Toribio on 08-26-2024 Respiratory Panel (PCR) [facility] Respiratory pathogens detect ion panel by molecular detection methodOrdered By: Celia Toribio on 08-26-2024 Respiratory pathogens DNA and RNA panel ALEENA+probe (Resp) [facility] SARS-CoV-2 (COVID-19) Ag IA. rapid Ql (Resp)Ordered By: Celia Toribio on 08-26-2024 SARS-CoV-2 Antigen (Rapid) [facility] Serum globulin measurementOr dered By: Lisha Talamantes on 08-26-2024 Globulin (S) [Mass/Vol] 2.9 g/dL 2.2-4.2 [facility] Serum or plasma alanine saul otransferase (ALT) measurementOrdered By: Lisha Talamantes on 08-26-2024 ALT [Catalytic activity/Vol] 28 U/L <47 [facility] Serum or plasma albumin luis urement (mass/volume)Ordered By: Lisha Talamantes on 08-26-2024 Albumin [Mass/Vol] 4.0 g/dL 3.4-4.8 [facility] Serum or plasma albumin/glob ulin mass ratioOrdered By: Lisha Talamantes on 08-26-2024 Albumin/Globulin [Mass ratio] 1.4 {ratio} 0.9-2.4 [facility] Serum or plasma alkaline kathleen sphatase measurementOrdered By: Lisha Talamantes on 08-26-2024 ALP [Catalytic activity/Vol] 67 U/L 40-129 [facility] Serum phosphorus measurement Ordered By: Lisha Talamantes on 08-26-2024 Phosphorus Level 3.1 mg/dL 2.7-4.5 [facility] Total proteinOrdered By: Ying Talamantes on 08-26-2024 Protein [Mass/Vol] 6.9 g/dL 5.9-8.4 [facility] Absolute neutrophil countOrd ered By: Jaden Jauregui on 08-25-2024 Neutrophils (Bld) [#/Vol] 4.6 10*3/uL 2.0-7.7 [facility] Anion gap in Serum or Plasma Ordered By: Jaden Jauregui on 08-25-2024 Anion gap [Moles/Vol] 13 mmol/L 5-15 [facility] BUN/creatinine ratioOrdered By: Jaden Jauregui on 08-25-2024 Urea nitrogen/Creatinine [Mass ratio] 21.4 mg/mg High 10-20 [facility] Basophil percentageOrdered B y: Jaden Jauregui on 08-25-2024 Basophils/100 WBC (Bld) 0.8 % 0-1 [facility] Bilirubin, totalOrdered By: Jaden Jauregui on 08-25-2024 Bilirubin [Mass/Vol] 0.22 mg/dL 0.00-1.30 [facility] CBC W/Diff, Automatedon Absolute Lymph 0.61 X10 3/uL Low 0.83-4.51 [facility] Comment on above: Performed By: #### L 500.4050, L100.0100 ####[facility] [address] [place], [address] Absolute Neut 4.6 X10 3/uL Normal 2.0-7.7 [facility] Comment on above: Performed By: #### L 500.4050, L100.0100 ####[facility] [address] [place], [address] Basophils/100 WBC (Bld) 0.8 % Normal 0-1 [facility] Comment on above: Performed By: #### L 500.4050, L100.0100 ####[facility] [address] [place], [address] Eosinophils/100 WBC (Bld) 0.3 % Normal 0-5 [facility] Comment on above: Performed By: #### L 500.4050, L100.0100 ####[facility] [address] [place], [address] Erythrocyte distribution width (RBC) [Ratio] 13.2 % Normal 11.6-14.6 [facility] Comment on above: Performed By: #### L 500.4050, L100.0100 ####[facility] [address] [place], [address] Hematocrit (Bld) [Volume fraction] 43.3 % Normal 40-54 [facility] Comment on above: Performed By: #### L 500.4050, L100.0100 ####[facility] [address] [place], [address] Hemoglobin (Bld) [Mass/Vol] 14.2 g/dL Normal 13.0-16.5 [facility] Comment on above: Performed By: #### L 500.4050, L100.0100 ####[facility] [address] [place], [address] IG% 0.300 Normal 0.0-0.9 [facility] Comment on above: Result Comment: IG% - Immature Granulocytes (promyelocytes, myelocytes andmetamyelocytes) > 1% indicates that a LEFT SHIFT is Present. Performed By: #### L 500.4050, L100.0100 ####[facility] [address] [place], [address] Lymphocytes/100 WBC (Bld) 10.3 % Low 19-41 [facility] Comment on above: Performed By: #### L 500.4050, L100.0100 ####[facility] [address] [place], [address] MCH (RBC) [Entitic mass] 31.4 pg Normal 27.0-32.0 [facility] Comment on above: Performed By: #### L 500.4050, L100.0100 ####[facility] [address] [place], [address] MCHC (RBC) [Mass/Vol] 32.8 g/dL Normal 32-36 [facility] Comment on above: Performed By: #### L 500.4050, L100.0100 ####[facility] [address] [place], [address] MCV (RBC) [Entitic vol] 95.8 fL High 80-94 [facility] Comment on above: Performed By: #### L 500.4050, L100.0100 ####[facility] [address] [place], [address] Monocytes/100 WBC (Bld) 9.9 % Normal 0-10 [facility] Comment on above: Performed By: #### L 500.4050, L100.0100 ####[facility] [address] [place], [address] Neutrophils/100 WBC (Bld) 78.4 % High 47-70 [facility] Comment on above: Performed By: #### L 500.4050, L100.0100 ####[facility] [address] [place], [address] Nucleated RBC (Bld) [#/Vol] 0 10*3/uL Normal 0-5 [facility] Comment on above: Performed By: #### L 500.4050, L100.0100 ####[facility] [address] [place], [address] Platelet mean volume (Bld) [Entitic vol] 9.5 fL Normal 6.2-12.0 [facility] Comment on above: Performed By: #### L 500.4050, L100.0100 ####[facility] [address] [place], [address] Platelets (Bld) [#/Vol] 245 10*3/uL Normal 150-450 [facility] Comment on above: Performed By: #### L 500.4050, L100.0100 ####[facility] [address] [place], [address] RBC (Bld) [#/Vol] 4.52 10*6/uL Low 4.6-6.2 [facility] Comment on above: Performed By: #### L 500.4050, L100.0100 ####[facility] [address] [place], [address] RDW SD 46.6 fl High 35.1-43.9 [facility] Comment on above: Performed By: #### L 500.4050, L100.0100 ####[facility] [address] [place], [address] WBC (Bld) [#/Vol] 5.9 10*3/uL Normal 4.4-11.0 [facility] Comment on above: Performed By: #### L 500.4050, L100.0100 ####[facility] [address] [place], [address] Carbon dioxide, total [Moles /volume] in Central venous bloodOrdered By: Jaden Jauregui on 08-25-2024 CO2 [Moles/Vol] 24.5 mmol/L 21.0-32.0 [facility] Chest 1 View (Portable)on Chest 1 View (Portable) Normal [facility] Chloride assayOrdered By: Joseph Jauregui on 08-25-2024 Chloride [Moles/Vol] 102 mmol/L 98-108 [facility] Comprehensive Metabolic Prof ilon 08-25-2024 Albumin [Mass/Vol] 4.5 g/dL Normal 3.4-4.8 [facility] Comment on above: Performed By: #### L 500.4050, L100.0100 ####[facility] [address] [place], [address] Albumin/Globulin [Mass ratio] 1.4 {ratio} Normal 0.9-2.4 [facility] Comment on above: Performed By: #### L 500.4050, L100.0100 ####[facility] [address] [place], [address] ALK PHOS 77 U/L Normal 40-129 [facility] Comment on above: Performed By: #### L 500.4050, L100.0100 ####[facility] [address] [place], [address] ALT [Catalytic activity/Vol] 32 U/L Normal <=46 [facility] Comment on above: Performed By: #### L 500.4050, L100.0100 ####[facility] [address] [place], [address] AST [Catalytic activity/Vol] 26 U/L Normal <=37 [facility] Comment on above: Performed By: #### L 500.4050, L100.0100 ####[facility] [address] [place], [address] Bilirubin [Mass/Vol] 0.22 mg/dL Normal 0.00-1.30 [facility] Comment on above: Performed By: #### L 500.4050, L100.0100 ####[facility] [address] [place], [address] BUN/CRE 21.4 RATIO High 10-20 [facility] Comment on above: Performed By: #### L 500.4050, L100.0100 ####[facility] [address] [place], [address] Calcium [Mass/Vol] 10.0 mg/dL Normal 7.6-11.0 [facility] Comment on above: Performed By: #### L 500.4050, L100.0100 ####[facility] [address] [place], [address] Chloride [Moles/Vol] 102 mmol/L Normal 98-108 [facility] Comment on above: Performed By: #### L 500.4050, L100.0100 ####[facility] [address] [place], [address] CO2 [Moles/Vol] 24.5 mmol/L Normal 21.0-32.0 [facility] Comment on above: Performed By: #### L 500.4050, L100.0100 ####[facility] [address] [place], [address] Creatinine [Mass/Vol] 1.17 mg/dL Normal 0.70-1.20 [facility] Comment on above: Performed By: #### L 500.4050, L100.0100 ####[facility] [address] [place], [address] GAP 13 Normal 5-15 [facility] Comment on above: Performed By: #### L 500.4050, L100.0100 ####[facility] [address] [place], [address] GFR/1.73 sq M.predicted among non-blacks MDRD (S/P/Bld) [Vol rate/Area] 65 mL/min/{1.73_m2} Normal >60 [facility] Comment on above: Result Comment: mL/m in/1.73m2 CKD-EPI Creatinine Equation (2020) Performed By: #### L 500.4050, L100.0100 ####[facility] [id number] [place], [address] Globulin (S) [Mass/Vol] 3.2 g/dL Normal 2.2-4.2 [facility] Comment on above: Performed By: #### L 500.4050, L100.0100 ####[facility] [address] [place], [address] Glucose [Mass/Vol] 98 mg/dL Normal 70-99 [facility] Comment on above: Performed By: #### L 500.4050, L100.0100 ####[facility] [address] [place], [address] Potassium [Moles/Vol] 3.8 mmol/L Normal 3.3-5.1 [facility] Comment on above: Performed By: #### L 500.4050, L100.0100 ####[facility] [address] [place], [address] Sodium [Moles/Vol] 139 mmol/L Normal 133-145 [facility] Comment on above: Performed By: #### L 500.4050, L100.0100 ####[facility] [address] [place], [address] T PROT 7.7 g/dL Normal 5.9-8.4 [facility] Comment on above: Performed By: #### L 500.4050, L100.0100 ####[facility] [address] [place], [address] Urea nitrogen [Mass/Vol] 25 mg/dL High 4-19 [facility] Comment on above: Performed By: #### L 500.4050, L100.0100 ####[facility] [address] [place], [place], [id number] Emergency Department Summary on 08-25-2024 [address] [facility] Eosinophil percentageOrdered By: Jaden Jauregui on 08-25-2024 Eosinophils/100 WBC (Bld) 0.3 % 0-5 [facility] Erythrocyte distribution wid th ratioOrdered By: Jaden Jauregui on 08-25-2024 Erythrocyte distribution width (RBC) [Ratio] 13.2 % 11.6-14.6 [facility] Erythrocyte distribution wid th standard deviationOrdered By: Jaden Jauregui on 08-25-2024 Erythrocyte distribution width (RBC) [Entitic vol] 46.6 fL High 35.1-43.9 [facility] GFR/1.73 sq M.predicted gisella g non-blacks MDRD (S/P/Bld) [Vol rate/Area]Ordered By: Jaden Jauregui on 08-25-2024 Estimated GFR (MDRD) Non-Af Amer 65 >60 [facility] Comment on above: mL/min/1.73m2 CKD-EP I Creatinine Equation (2020) H AND P Exam - [place] 08-25-2024 H&P Exam - Hospitalist Normal [facility] Hematocrit Auto (Bld) [Volum e fraction]Ordered By: Jaden Jauregui on 08-25-2024 Hematocrit (Bld) [Volume fraction] 43.3 % 40-54 [facility] Hemoglobin measurementOrdere d By: Jaden Jauregui on 08-25-2024 Hemoglobin (Bld) [Mass/Vol] 14.2 g/dL 13.0-16.5 [facility] Immature granulocytes/100 WB C Auto (Bld)Ordered By: Jaden Jauregui on 08-25-2024 Immature granulocytes/100 WBC (Bld) 0.300 % 0.0-0.9 [facility] Comment on above: IG% - Immature Granu locytes (promyelocytes, myelocytes and metamyelocytes) > 1% indicates that a LEFT SHIFT is Present. Laboratory - Chemistry and C hemistry - challengeOrdered By: Jaden Jauregui on 08-25-2024 AST [Catalytic activity/Vol] 26 U/L <38 [facility] Lymphocytes Auto (Unsp spec) [#/Vol]Ordered By: Jaden Jauregui on 08-25-2024 Lymphocytes (Bld) [#/Vol] 0.61 10*3/uL Low 0.83-4.51 [facility] Lymphocytes/100 WBC Auto (Un sp spec)Ordered By: Jaden Jauregui on 08-25-2024 Lymphocytes/100 WBC (Bld) 10.3 % Low 19-41 [facility] MCV (mean corpuscular volume ) determinationOrdered By: Jaden Jauregui on 08-25-2024 MCV (RBC) [Entitic vol] 95.8 fL High 80-94 [facility] Mean corpuscular hemoglobin (MCH) determinationOrdered By: Jaden Jauregui on 08-25-2024 MCH (RBC) [Entitic mass] 31.4 pg 27.0-32.0 [facility] Mean corpuscular hemoglobin concentration (MCHC) determinationOrdered By: Jaden Jauregui on 08-25-2024 MCHC (RBC) [Mass/Vol] 32.8 g/dL 32-36 [facility] Mean platelet volume determi nationOrdered By: Jaden Jauregui on 08-25-2024 Platelet mean volume (Bld) [Entitic vol] 9.5 fL 6.2-12.0 [facility] Monocyte percentageOrdered B y: Jaden Jauregui on 08-25-2024 Monocytes/100 WBC (Bld) 9.9 % 0-10 [facility] Neutrophil percentageOrdered By: Jaden Jauregui on 08-25-2024 Neutrophils/100 WBC (Bld) 78.4 % High 47-70 [facility] Nucleated red blood cell per centageOrdered By: Jaden Jauregui on 08-25-2024 Nucleated RBC/100 WBC (Bld) [Ratio] 0 % 0-5 [facility] Platelet countOrdered By: Joseph Jauregui on 08-25-2024 Platelets (Bld) [#/Vol] 245 10*3/uL 150-450 [facility] Potassium (Unsp spec) [Mass/ Vol]Ordered By: Jaden Jauregui on 08-25-2024 Potassium [Moles/Vol] 3.8 mmol/L 3.3-5.1 [facility] RBC Auto (Bld) [#/Vol]Ordere d By: Jaden Jauregui on 08-25-2024 RBC (Bld) [#/Vol] 4.52 10*6/uL Low 4.6-6.2 [facility] Serum creatinine measurement (mass/volume)Ordered By: Jaden Jauregui on 08-25-2024 Creatinine [Mass/Vol] 1.17 mg/dL 0.70-1.20 [facility] Serum globulin measurementOr dered By: Jaden Jauregui on 08-25-2024 Globulin (S) [Mass/Vol] 3.2 g/dL 2.2-4.2 [facility] Serum glucose measurement (m ass/volume)Ordered By: Jaden Jauregui on 08-25-2024 Glucose [Mass/Vol] 98 mg/dL 70-99 [facility] Serum or plasma alanine saul otransferase (ALT) measurementOrdered By: Jaden Jauregui on 08-25-2024 ALT [Catalytic activity/Vol] 32 U/L <47 [facility] Serum or plasma albumin luis urement (mass/volume)Ordered By: Jaden Jauregui on 08-25-2024 Albumin [Mass/Vol] 4.5 g/dL 3.4-4.8 [facility] Serum or plasma albumin/glob ulin mass ratioOrdered By: Jaden Jauregui on 08-25-2024 Albumin/Globulin [Mass ratio] 1.4 {ratio} 0.9-2.4 [facility] Serum or plasma alkaline kathleen sphatase measurementOrdered By: Jaden Jauregui on 08-25-2024 ALP [Catalytic activity/Vol] 77 U/L 40-129 [facility] Serum or plasma calcium luis urement (mass/volume)Ordered By: Jaden Jauregui on 08-25-2024 Calcium [Mass/Vol] 10.0 mg/dL 7.6-11.0 [facility] Serum or plasma urea nitroge n measurement (mass/volume)Ordered By: Jaden Jauregui on 08-25-2024 Urea nitrogen [Mass/Vol] 25 mg/dL High 4-19 [facility] Sodium levelOrdered By: Maurice Jauregui on 08-25-2024 Sodium [Moles/Vol] 139 mmol/L 133-145 [facility] Total proteinOrdered By: Rad Jauregui on 08-25-2024 Protein [Mass/Vol] 7.7 g/dL 5.9-8.4 [facility] White blood cell (WBC) count Ordered By: Jaden Jauregui on 08-25-2024 WBC (Bld) [#/Vol] 5.9 10*3/uL 4.4-11.0 [facility] 25-WJ-Qqqmvrd DOrdered By: Landry Crane on 07-15-2024 Vitamin D 25-Hydroxy 36.0 ng/mL [facility] Comment on above: Vitamin D 25(OH) Sta tus Range Deficiency <20 ng/mL (50nmol/L) Insufficiency 20 - 30 ng/mL (50 - 75 nmol/L) Sufficiency 30 - 100 ng/mL (75 - 250 nmol/L) Toxicity >100 ng/mL (>250 nmol/L) Absolute neutrophil countOrd ered By: Carla Crane on 07-15-2024 Neutrophils (Bld) [#/Vol] 2.7 10*3/uL 2.0-7.7 [facility] Albumin to globulin ratioOrd ered By: Carla Crane on 07-15-2024 Albumin/Globulin [Mass ratio] 1.0 {ratio} Normal 0.9-2.4 [facility] Comment on above: Order Comment: 414-2 Performed By: #### L 500.4050, L506.1000, L501.9985, L501.7900, L503.0105, L501.5200, L100.0100 ####[facility] [address] [place], [address] Basophil percentageOrdered B y: Carla Crane on 07-15-2024 Basophils/100 WBC (Bld) 1.4 % High 0-1 [facility] Bilirubin, totalOrdered By: Carla Crane on 07-15-2024 Bilirubin [Mass/Vol] 0.30 mg/dL Normal 0.20-1.00 [facility] Comment on above: For patients on eltr ombopag therapy, use of Dimension [place] TBIL is not recommended. Order Comment: 414-2 Result Comment: For patients on eltrombopag therapy, use of Dimension [place] TBIL is not recommended. Performed By: #### L 500.4050, L506.1000, L501.9985, L501.7900, L503.0105, L501.5200, L100.0100 ####[facility] [address] [place], [phone]) Blood urea nitrogen (BUN)/cr eatinine ratioOrdered By: Carla Crane on 07-15-2024 Urea nitrogen/Creatinine [Mass ratio] 25.4 mg/mg High 10-20 [facility] CBC W/Diff, Automatedon 06-20 Absolute Lymph 1.38 X10 3/uL Normal 0.83-4.51 [facility] Comment on above: Order Comment: 414-2 Performed By: #### L 500.4050, L506.1000, L501.9985, L501.7900, L503.0105, L501.5200, L100.0100 ####[facility] [address] [place], [address](866) Absolute Neut 2.7 X10 3/uL Normal 2.0-7.7 [facility] Comment on above: Order Comment: 414-2 Performed By: #### L 500.4050, L506.1000, L501.9985, L501.7900, L503.0105, L501.5200, L100.0100 ####[facility] [address] [place], [place], [phone] Basophils/100 WBC (Bld) 1.4 % High 0-1 [facility] Comment on above: Order Comment: 414-2 Performed By: #### L 500.4050, L506.1000, L501.9985, L501.7900, L503.0105, L501.5200, L100.0100 ####[facility] [address] [place], [address] Eosinophils/100 WBC (Bld) 9.4 % High 0-5 [facility] Comment on above: Order Comment: 414-2 Performed By: #### L 500.4050, L506.1000, L501.9985, L501.7900, L503.0105, L501.5200, L100.0100 ####[facility] [address] [place], [address] Erythrocyte distribution width (RBC) [Ratio] 12.8 % Normal 11.6-14.6 [facility] Comment on above: Order Comment: 414-2 Performed By: #### L 500.4050, L506.1000, L501.9985, L501.7900, L503.0105, L501.5200, L100.0100 ####[facility] [address] [place], [address] Hematocrit (Bld) [Volume fraction] 45.8 % Normal 40-54 [facility] Comment on above: Order Comment: 414-2 Performed By: #### L 500.4050, L506.1000, L501.9985, L501.7900, L503.0105, L501.5200, L100.0100 ####[facility] [address] [place], [address] Hemoglobin (Bld) [Mass/Vol] 14.8 g/dL Normal 13.0-16.5 [facility] Comment on above: Order Comment: 414-2 Performed By: #### L 500.4050, L506.1000, L501.9985, L501.7900, L503.0105, L501.5200, L100.0100 ####[facility] [address] [place], [address] IG% 0.400 Normal 0.0-0.9 [facility] Comment on above: Order Comment: 414-2 Result Comment: IG% - Immature Granulocytes (promyelocytes, myelocytes andmetamyelocytes) > 1% indicates that a LEFT SHIFT is Present. Performed By: #### L 500.4050, L506.1000, L501.9985, L501.7900, L503.0105, L501.5200, L100.0100 ####[facility] [address] [place], [address] Lymphocytes/100 WBC (Bld) 26.9 % Normal 19-41 [facility] Comment on above: Order Comment: 414-2 Performed By: #### L 500.4050, L506.1000, L501.9985, L501.7900, L503.0105, L501.5200, L100.0100 ####[facility] [address] [place], [address] MCH (RBC) [Entitic mass] 31.2 pg Normal 27.0-32.0 [facility] Comment on above: Order Comment: 414-2 Performed By: #### L 500.4050, L506.1000, L501.9985, L501.7900, L503.0105, L501.5200, L100.0100 ####[facility] [address] [place], [address] MCHC (RBC) [Mass/Vol] 32.3 g/dL Normal 32-36 [facility] Comment on above: Order Comment: 414-2 Performed By: #### L 500.4050, L506.1000, L501.9985, L501.7900, L503.0105, L501.5200, L100.0100 ####[facility] [address] [place], [address] MCV (RBC) [Entitic vol] 96.4 fL High 80-94 [facility] Comment on above: Order Comment: 414-2 Performed By: #### L 500.4050, L506.1000, L501.9985, L501.7900, L503.0105, L501.5200, L100.0100 ####[facility] [address] [place], [address] Monocytes/100 WBC (Bld) 8.8 % Normal 0-10 [facility] Comment on above: Order Comment: 414-2 Performed By: #### L 500.4050, L506.1000, L501.9985, L501.7900, L503.0105, L501.5200, L100.0100 ####[facility] [address] [place], [address] Neutrophils/100 WBC (Bld) 53.1 % Normal 47-70 [facility] Comment on above: Order Comment: 414-2 Performed By: #### L 500.4050, L506.1000, L501.9985, L501.7900, L503.0105, L501.5200, L100.0100 ####[facility] [address] [place], [address] Nucleated RBC (Bld) [#/Vol] 0 10*3/uL Normal 0-5 [facility] Comment on above: Order Comment: 414-2 Performed By: #### L 500.4050, L506.1000, L501.9985, L501.7900, L503.0105, L501.5200, L100.0100 ####[facility] [address] [place], [address] Platelet mean volume (Bld) [Entitic vol] 9.6 fL Normal 6.2-12.0 [facility] Comment on above: Order Comment: 414-2 Performed By: #### L 500.4050, L506.1000, L501.9985, L501.7900, L503.0105, L501.5200, L100.0100 ####[facility] [address] [place], [address] Platelets (Bld) [#/Vol] 295 10*3/uL Normal 150-450 [facility] Comment on above: Order Comment: 414-2 Performed By: #### L 500.4050, L506.1000, L501.9985, L501.7900, L503.0105, L501.5200, L100.0100 ####[facility] [address] [place], [address] RBC (Bld) [#/Vol] 4.75 10*6/uL Normal 4.6-6.2 [facility] Comment on above: Order Comment: 414-2 Performed By: #### L 500.4050, L506.1000, L501.9985, L501.7900, L503.0105, L501.5200, L100.0100 ####[facility] [address] [place], [address] RDW SD 45.4 fl High 35.1-43.9 [facility] Comment on above: Order Comment: 414-2 Performed By: #### L 500.4050, L506.1000, L501.9985, L501.7900, L503.0105, L501.5200, L100.0100 ####[facility] [address] [place], [address] WBC (Bld) [#/Vol] 5.1 10*3/uL Normal 4.4-11.0 [facility] Comment on above: Order Comment: 414-2 Performed By: #### L 500.4050, L506.1000, L501.9985, L501.7900, L503.0105, L501.5200, L100.0100 ####[facility] [address] [place], [address] Carbamazepine (Tegretol)on 0 07-15-2024 CARBAMAZEPINE 7.0 ug/mL Normal 4.0-12.0 [facility] Comment on above: Order Comment: 414-2 Performed By: #### L 500.4050, L506.1000, L501.9985, L501.7900, L503.0105, L501.5200, L100.0100 ####[facility] [address] [place], [place], [id number] Carbon dioxide measurementOr dered By: Carla Crane on 07-15-2024 CO2 [Moles/Vol] 24.0 mmol/L Normal 21.0-32.0 [facility] Comment on above: Order Comment: 414-2 Performed By: #### L 500.4050, L506.1000, L501.9985, L501.7900, L503.0105, L501.5200, L100.0100 ####[facility] [address] [place], [place], [id number] Chloride measurementOrdered By: Carla Crane on 07-15-2024 Chloride [Moles/Vol] 107 mmol/L Normal 98-107 [facility] Comment on above: Order Comment: 414-2 Performed By: #### L 500.4050, L506.1000, L501.9985, L501.7900, L503.0105, L501.5200, L100.0100 ####[facility] [address] [place], [place], [id number] Comprehensive Metabolic Prof ilon 07-15-2024 ALK P 70 U/L Normal 45-117 [facility] Comment on above: Order Comment: 414-2 Performed By: #### L 500.4050, L506.1000, L501.9985, L501.7900, L503.0105, L501.5200, L100.0100 ####[facility] [address], [address] BUN/CRE 25.4 RATIO High 10-20 [facility] Comment on above: Order Comment: 414-2 Performed By: #### L 500.4050, L506.1000, L501.9985, L501.7900, L503.0105, L501.5200, L100.0100 ####[facility] [address] [place], [address] CA,Total 10.1 mg/dL Normal 8.5-10.1 [facility] Comment on above: Order Comment: 414-2 Performed By: #### L 500.4050, L506.1000, L501.9985, L501.7900, L503.0105, L501.5200, L100.0100 ####[facility] [address] [place], [address] EST GFR - AA 77 mL/min Normal >60 [facility] Comment on above: Order Comment: 414-2 Result Comment: Afri can [place]ib[place] GFR Calc Performed By: #### L 500.4050, L506.1000, L501.9985, L501.7900, L503.0105, L501.5200, L100.0100 ####[facility] [address] [place], [address] GAP 7 Normal 5-15 [facility] Comment on above: Order Comment: 414-2 Performed By: #### L 500.4050, L506.1000, L501.9985, L501.7900, L503.0105, L501.5200, L100.0100 ####[facility] [address] [place], [address] GFR/1.73 sq M.predicted among non-blacks MDRD (S/P/Bld) [Vol rate/Area] 64 mL/min/{1.73_m2} Normal >60 [facility] Comment on above: Order Comment: 414-2 Result Comment: Non- GFR Calc Performed By: #### L 500.4050, L506.1000, L501.9985, L501.7900, L503.0105, L501.5200, L100.0100 ####[facility] [address] [place], [place], [id number] T PROT 8.0 g/dL Normal 6.4-8.2 [facility] Comment on above: Order Comment: 414-2 Performed By: #### L 500.4050, L506.1000, L501.9985, L501.7900, L503.0105, L501.5200, L100.0100 ####[facility] [address] [place], [place], [id number] Comprehensive Metabolic Prof ilOrdered By: Carla Crane on 07-15-2024 AST [Catalytic activity/Vol] 23 U/L Normal 15-37 [facility] Comment on above: Order Comment: 414-2 Performed By: #### L 500.4050, L506.1000, L501.9985, L501.7900, L503.0105, L501.5200, L100.0100 ####[facility] [address] [place], [place], [id number] Eosinophil percentageOrdered By: Carla Crane on 07-15-2024 Eosinophils/100 WBC (Bld) 9.4 % High 0-5 [facility] Erythrocyte distribution wid th ratioOrdered By: Carla Crane on 07-15-2024 Erythrocyte distribution width (RBC) [Ratio] 12.8 % 11.6-14.6 [facility] Erythrocyte distribution wid th standard deviationOrdered By: Carla Crane on 07-15-2024 Erythrocyte distribution width (RBC) [Entitic vol] 45.4 fL High 35.1-43.9 [facility] Estimated glomerular filtrat ion rate (GFR) AmericanOrdered By: Carla Crane on 07-15-2024 Estimated GFR (MDRD) Amer 77 mL/min >60 [facility] Comment on above: GFR Calc Glomerular filtration rate ( GFR) estimationOrdered By: Carla Crane on 07-15-2024 Estimated GFR (MDRD) Non-Af Amer 64 mL/min >60 [facility] Comment on above: Non- GFR Calc Glucose measurementOrdered B y: Carla Crane on 07-15-2024 Glucose [Mass/Vol] 103 mg/dL Normal 74-106 [facility] Comment on above: Fasting Glucose resu lt from 100 to 125 mg/dL suggests IMPAIRED HOMEOSTASIS per A.D.A. criteria. Order Comment: 414-2 Result Comment: Fast ing Glucose result from 100 to 125 mg/dLsuggests IMPAIRED HOMEOSTASIS per A.D.A. criteria. Performed By: #### L 500.4050, L506.1000, L501.9985, L501.7900, L503.0105, L501.5200, L100.0100 ####[facility] [address] [place], [address] Hematocrit Auto (Bld) [Volum e fraction]Ordered By: Carla Crane on 07-15-2024 Hematocrit (Bld) [Volume fraction] 45.8 % 40-54 [facility] Hemoglobin A1con 07-15-2024 HbA1c (Bld) [Mass fraction] 5.6 % Normal 3.8-5.6 [facility] Comment on above: Order Comment: 414-2 Result Comment: Norm al < 5.7 % Prediabetic 5.7 - 6.4 % Diabetic >or= 6.5 % Please note range changes. Performed By: #### L 500.4050, L506.1000, L501.9985, L501.7900, L503.0105, L501.5200, L100.0100 ####[facility] [address] [place], [address] Hemoglobin A1c percentageOrd ered By: Carla Crane on 07-15-2024 HbA1c (Bld) [Mass fraction] 5.6 % 3.8-5.6 [facility] Comment on above: Normal < 5.7 % Predi abetic 5.7 - 6.4 % Diabetic >or= 6.5 % Please note range changes. Hemoglobin measurementOrdere d By: Carla Crane on 07-15-2024 Hemoglobin (Bld) [Mass/Vol] 14.8 g/dL 13.0-16.5 [facility] Immature granulocytes/100 WB C Auto (Bld)Ordered By: Carla Crane on 07-15-2024 Immature granulocytes/100 WBC (Bld) 0.400 % 0.0-0.9 [facility] Comment on above: IG% - Immature Granu locytes (promyelocytes, myelocytes and metamyelocytes) > 1% indicates that a LEFT SHIFT is Present. Lymphocytes Auto (Unsp spec) [#/Vol]Ordered By: Carla Crane on 07-15-2024 Lymphocytes (Bld) [#/Vol] 1.38 10*3/uL 0.83-4.51 [facility] Lymphocytes/100 WBC Auto (Un sp spec)Ordered By: Carla Crane on 07-15-2024 Lymphocytes/100 WBC (Bld) 26.9 % 19-41 [facility] MCV (mean corpuscular volume ) determinationOrdered By: Carla Crane on 07-15-2024 MCV (RBC) [Entitic vol] 96.4 fL High 80-94 [facility] Magnesium measurementOrdered By: Carla Crane on 07-15-2024 Magnesium [Mass/Vol] 2.1 mg/dL Normal 1.6-2.6 [facility] Comment on above: Order Comment: 414-2 Performed By: #### L 500.4050, L506.1000, L501.9985, L501.7900, L503.0105, L501.5200, L100.0100 ####[facility] [address] [place], [place], [id number] Mean corpuscular hemoglobin (MCH) determinationOrdered By: Carla Crane on 07-15-2024 MCH (RBC) [Entitic mass] 31.2 pg 27.0-32.0 [facility] Mean corpuscular hemoglobin concentration (MCHC) determinationOrdered By: Carla Crane on 07-15-2024 MCHC (RBC) [Mass/Vol] 32.3 g/dL 32-36 [facility] Mean platelet volume determi nationOrdered By: Carla Crane on 07-15-2024 Platelet mean volume (Bld) [Entitic vol] 9.6 fL 6.2-12.0 [facility] Monocyte percentageOrdered B y: Carla Crane on 07-15-2024 Monocytes/100 WBC (Bld) 8.8 % 0-10 [facility] Neutrophil percentageOrdered By: Carla Crane on 07-15-2024 Neutrophils/100 WBC (Bld) 53.1 % 47-70 [facility] Nucleated red blood cell per centageOrdered By: Carla Crane on 07-15-2024 Nucleated RBC/100 WBC (Bld) [Ratio] 0 % 0-5 [facility] Platelet countOrdered By: Wilfredo Crane on 07-15-2024 Platelets (Bld) [#/Vol] 295 10*3/uL 150-450 [facility] Potassium measurementOrdered By: Carla Crane on 07-15-2024 Potassium [Moles/Vol] 3.8 mmol/L Normal 3.5-5.1 [facility] Comment on above: Order Comment: 414-2 Performed By: #### L 500.4050, L506.1000, L501.9985, L501.7900, L503.0105, L501.5200, L100.0100 ####[facility] [address] [place], [place], [id number] RBC Auto (Bld) [#/Vol]Ordere d By: Carla Crane on 07-15-2024 RBC (Bld) [#/Vol] 4.75 10*6/uL 4.6-6.2 [facility] Serum anion gap measurementO rdered By: Carla Crane on 07-15-2024 Anion gap [Moles/Vol] 7 mmol/L 5-15 [facility] Serum globulin measurementOr dered By: Carla Crane on 07-15-2024 Globulin (S) [Mass/Vol] 4.1 g/dL Normal 2.2-4.2 [facility] Comment on above: Order Comment: 414-2 Performed By: #### L 500.4050, L506.1000, L501.9985, L501.7900, L503.0105, L501.5200, L100.0100 ####[facility] [address] [place], [place], [id number] Serum or plasma alanine saul otransferase (ALT) measurementOrdered By: Carla Crane on 07-15-2024 ALT [Catalytic activity/Vol] 37 U/L Normal 16-61 [facility] Comment on above: Order Comment: 414-2 Performed By: #### L 500.4050, L506.1000, L501.9985, L501.7900, L503.0105, L501.5200, L100.0100 ####[facility] [address] [place], [place], [id number] Serum or plasma albumin luis urement (mass/volume)Ordered By: Carla Crane on 07-15-2024 Albumin [Mass/Vol] 3.9 g/dL Normal 3.2-5.0 [facility] Comment on above: Order Comment: 414-2 Performed By: #### L 500.4050, L506.1000, L501.9985, L501.7900, L503.0105, L501.5200, L100.0100 ####[facility] [address] [place], [place], [address] Serum or plasma alkaline kathleen sphatase measurementOrdered By: Carla Crane on 07-15-2024 ALP [Catalytic activity/Vol] 70 U/L 45-117 [facility] Serum or plasma calcium luis urement (mass/volume)Ordered By: Carla Crane on 07-15-2024 Calcium [Mass/Vol] 10.1 mg/dL 8.5-10.1 [facility] Serum or plasma creatinine m easurement (mass/volume)Ordered By: Carla Crane on 07-15-2024 Creatinine [Mass/Vol] 1.18 mg/dL Normal 0.70-1.30 [facility] Comment on above: The validity of the calculated GFR & GFRAA in patients over 70 years has not been determined. Clinical correlation is essential. Order Comment: 414-2 Result Comment: The validity of the calculated GFR GFRAA in patients over70 years has not been determined. Clinical correlation isessential. Performed By: #### L 500.4050, L506.1000, L501.9985, L501.7900, L503.0105, L501.5200, L100.0100 ####[facility] [id number] [place], [address] Serum or plasma urea nitroge n measurement (mass/volume)Ordered By: Carla Crane on 07-15-2024 Urea nitrogen [Mass/Vol] 30 mg/dL High 7-18 [facility] Comment on above: Order Comment: 414-2 Performed By: #### L 500.4050, L506.1000, L501.9985, L501.7900, L503.0105, L501.5200, L100.0100 ####[facility] [id number] [place], [address] Sodium levelOrdered By: Luca Crane on 07-15-2024 Sodium [Moles/Vol] 138 mmol/L Normal 136-145 [facility] Comment on above: Order Comment: 414-2 Performed By: #### L 500.4050, L506.1000, L501.9985, L501.7900, L503.0105, L501.5200, L100.0100 ####[facility] [id number] [place], [address] Total proteinOrdered By: Ming Crane on 07-15-2024 Protein [Mass/Vol] 8.0 g/dL 6.4-8.2 [facility] Vitamin B12on 07-15-2024 Cobalamin (Vitamin B12) [Mass/Vol] 692 pg/mL Normal 211-911 [facility] Comment on above: Order Comment: 414-2 Performed By: #### L 500.4050, L506.1000, L501.9985, L501.7900, L503.0105, L501.5200, L100.0100 ####[facility] [id number] [place], [place], [id number] Vitamin B12 measurementOrder ed By: Carla Crane on 07-15-2024 Cobalamin (Vitamin B12) [Mass/Vol] 692 pg/mL 211-911 [facility] Vitamin D,25 Hydroxyon 07-15 Vitamin D 25-OH 36.0 ng/mL Normal [facility] Comment on above: Order Comment: 414-2 Result Comment: Teri min D 25(OH) Status Range Deficiency <20 ng/mL (50nmol/L) Insufficiency 20 - 30 ng/mL (50 - 75 nmol/L) Sufficiency 30 - 100 ng/mL (75 - 250 nmol/L) Toxicity >100 ng/mL (>250 nmol/L) Performed By: #### L 500.4050, L506.1000, L501.9985, L501.7900, L503.0105, L501.5200, L100.0100 ####[facility] [id number] [place], [place], [id number] White blood cell (WBC) count Ordered By: Carla Crane on 07-15-2024 WBC (Bld) [#/Vol] 5.1 10*3/uL 4.4-11.0 [facility] carBAMazepine [Mass/Vol]Orde red By: Carla Crane on 07-15-2024 Carbamazepine (Tegretol) Level 7.0 ug/mL 4.0-12.0 [facility] Basic Metabolic Profile (BMP )on 04-15-2024 BUN Normal 7-18 [facility] Comment on above: Result Comment: Canc elled via OM: Order cancelled - Patient discharged Performed By: #### L 100.0100, L500.2500 ####[facility] [address] [place], [address] BUN/CRE Normal 10-20 [facility] Comment on above: Result Comment: Canc elled via OM: Order cancelled - Patient discharged Performed By: #### L 100.0100, L500.2500 ####[facility] [address] [place], [address] CA,Total Normal 8.5-10.1 [facility] Comment on above: Result Comment: Canc elled via OM: Order cancelled - Patient discharged Performed By: #### L 100.0100, L500.2500 ####[facility] [address] [place], [address] CL Normal 98-107 [facility] Comment on above: Result Comment: Canc elled via OM: Order cancelled - Patient discharged Performed By: #### L 100.0100, L500.2500 ####[facility] [address] [place], [address] CO2 Normal 21.0-32.0 [facility] Comment on above: Result Comment: Canc elled via OM: Order cancelled - Patient discharged Performed By: #### L 100.0100, L500.2500 ####[facility] [address] [place], [address] CREAT,SERUM Normal 0.70-1.30 [facility] Comment on above: Result Comment: Canc elled via OM: Order cancelled - Patient discharged Performed By: #### L 100.0100, L500.2500 ####[facility] [address] [place], [address] EST GFR Normal >60 [facility] Comment on above: Result Comment: Canc elled via OM: Order cancelled - Patient discharged Performed By: #### L 100.0100, L500.2500 ####[facility] [address] [place], [address] EST GFR - AA Normal >60 [facility] Comment on above: Result Comment: Canc elled via OM: Order cancelled - Patient discharged Performed By: #### L 100.0100, L500.2500 ####[facility] [address] [place], [address] GAP Normal 5-15 [facility] Comment on above: Result Comment: Canc elled via OM: Order cancelled - Patient discharged Performed By: #### L 100.0100, L500.2500 ####[facility] [address] [place], [address] GLU Normal 74-106 [facility] Comment on above: Result Comment: Canc elled via OM: Order cancelled - Patient discharged Performed By: #### L 100.0100, L500.2500 ####[facility] [address] [place], [address] Potassium Normal 3.5-5.1 [facility] Comment on above: Result Comment: Canc elled via OM: Order cancelled - Patient discharged Performed By: #### L 100.0100, L500.2500 ####[facility] [address] [place], [address] Basic Metabolic Profile (BMP) Normal 136-145 [facility] Comment on above: Result Comment: Canc elled via OM: Order cancelled - Patient discharged Performed By: #### L 100.0100, L500.2500 ####[facility] [address] [place], [address] CBC W/Diff, Automatedon 10-2 Absolute Neut Normal 2.0-7.7 [facility] Comment on above: Result Comment: Canc elled via OM: Order cancelled - Patient discharged Performed By: #### L 100.0100, L500.2500 ####[facility] [address] [place], [address] HCT Normal 40-54 [facility] Comment on above: Result Comment: Canc elled via OM: Order cancelled - Patient discharged Performed By: #### L 100.0100, L500.2500 ####[facility] [address] [place], [address] HGB Normal 13.0-16.5 [facility] Comment on above: Result Comment: Canc elled via OM: Order cancelled - Patient discharged Performed By: #### L 100.0100, L500.2500 ####[facility] [address] [place], [address] MCH Normal 27.0-32.0 [facility] Comment on above: Result Comment: Canc elled via OM: Order cancelled - Patient discharged Performed By: #### L 100.0100, L500.2500 ####[facility] [address] [place], [address] MCHC Normal 32-36 [facility] Comment on above: Result Comment: Canc elled via OM: Order cancelled - Patient discharged Performed By: #### L 100.0100, L500.2500 ####[facility] [address] [place], [address] MCV Normal 80-94 [facility] Comment on above: Result Comment: Canc elled via OM: Order cancelled - Patient discharged Performed By: #### L 100.0100, L500.2500 ####[facility] [address] [place], [address] NEUT% Normal 47-70 [facility] Comment on above: Result Comment: Canc elled via OM: Order cancelled - Patient discharged Performed By: #### L 100.0100, L500.2500 ####[facility] [address] [place], [address] PLT Normal 150-450 [facility] Comment on above: Result Comment: Canc elled via OM: Order cancelled - Patient discharged Performed By: #### L 100.0100, L500.2500 ####[facility] [address] [place], [address] RBC Normal 4.6-6.2 [facility] Comment on above: Result Comment: Canc elled via OM: Order cancelled - Patient discharged Performed By: #### L 100.0100, L500.2500 ####[facility] [address] [place], [address] RDW CV Normal 11.6-14.6 [facility] Comment on above: Result Comment: Canc elled via OM: Order cancelled - Patient discharged Performed By: #### L 100.0100, L500.2500 ####[facility] [address] [place], [address] RDW SD Normal 35.1-43.9 [facility] Comment on above: Result Comment: Canc elled via OM: Order cancelled - Patient discharged Performed By: #### L 100.0100, L500.2500 ####[facility] [address] [place], [address] WBC Normal 4.4-11.0 [facility] Comment on above: Result Comment: Canc elled via OM: Order cancelled - Patient discharged Performed By: #### L 100.0100, L500.2500 ####[facility] [address] [place], [address] Basic Metabolic Profile (BMP )on 04-14-2024 BUN Normal 7-18 [facility] Comment on above: Result Comment: Canc elled via OM: Order cancelled - Patient discharged Performed By: #### L 100.0100, L500.2500 ####[facility] [address] [place], [address] BUN/CRE Normal 10-20 [facility] Comment on above: Result Comment: Canc elled via OM: Order cancelled - Patient discharged Performed By: #### L 100.0100, L500.2500 ####[facility] [address] [place], [address] CA,Total Normal 8.5-10.1 [facility] Comment on above: Result Comment: Canc elled via OM: Order cancelled - Patient discharged Performed By: #### L 100.0100, L500.2500 ####[facility] [address] [place], [address] CL Normal 98-107 [facility] Comment on above: Result Comment: Canc elled via OM: Order cancelled - Patient discharged Performed By: #### L 100.0100, L500.2500 ####[facility] [address] [place], [address] CO2 Normal 21.0-32.0 [facility] Comment on above: Result Comment: Canc elled via OM: Order cancelled - Patient discharged Performed By: #### L 100.0100, L500.2500 ####[facility] [address] [place], [address] CREAT,SERUM Normal 0.70-1.30 [facility] Comment on above: Result Comment: Canc elled via OM: Order cancelled - Patient discharged Performed By: #### L 100.0100, L500.2500 ####[facility] [address] [place], [address] EST GFR Normal >60 [facility] Comment on above: Result Comment: Canc elled via OM: Order cancelled - Patient discharged Performed By: #### L 100.0100, L500.2500 ####[facility] [address] [place], [address] EST GFR - AA Normal >60 [facility] Comment on above: Result Comment: Canc elled via OM: Order cancelled - Patient discharged Performed By: #### L 100.0100, L500.2500 ####[facility] [address] [place], [address] GAP Normal 5-15 [facility] Comment on above: Result Comment: Canc elled via OM: Order cancelled - Patient discharged Performed By: #### L 100.0100, L500.2500 ####[facility] [address] [place], [address] GLU Normal 74-106 [facility] Comment on above: Result Comment: Canc elled via OM: Order cancelled - Patient discharged Performed By: #### L 100.0100, L500.2500 ####[facility] [address] [place], [address] Potassium Normal 3.5-5.1 [facility] Comment on above: Result Comment: Canc elled via OM: Order cancelled - Patient discharged Performed By: #### L 100.0100, L500.2500 ####[facility] [address] [place], [address] Basic Metabolic Profile (BMP) Normal 136-145 [facility] Comment on above: Result Comment: Canc elled via OM: Order cancelled - Patient discharged Performed By: #### L 100.0100, L500.2500 ####[facility] [address] [place], [address] CBC W/Diff, Automatedon 10-2 Absolute Neut Normal 2.0-7.7 [facility] Comment on above: Result Comment: Canc elled via OM: Order cancelled - Patient discharged Performed By: #### L 100.0100, L500.2500 ####[facility] [address] [place], [address] HCT Normal 40-54 [facility] Comment on above: Result Comment: Canc elled via OM: Order cancelled - Patient discharged Performed By: #### L 100.0100, L500.2500 ####[facility] [address] [place], [address] HGB Normal 13.0-16.5 [facility] Comment on above: Result Comment: Canc elled via OM: Order cancelled - Patient discharged Performed By: #### L 100.0100, L500.2500 ####[facility] [address] [place], [address] MCH Normal 27.0-32.0 [facility] Comment on above: Result Comment: Canc elled via OM: Order cancelled - Patient discharged Performed By: #### L 100.0100, L500.2500 ####[facility] [address] [place], [address] MCHC Normal 32-36 [facility] Comment on above: Result Comment: Canc elled via OM: Order cancelled - Patient discharged Performed By: #### L 100.0100, L500.2500 ####[facility] [address] [place], [address] MCV Normal 80-94 [facility] Comment on above: Result Comment: Canc elled via OM: Order cancelled - Patient discharged Performed By: #### L 100.0100, L500.2500 ####[facility] [address] [place], [address] NEUT% Normal 47-70 [facility] Comment on above: Result Comment: Canc elled via OM: Order cancelled - Patient discharged Performed By: #### L 100.0100, L500.2500 ####[facility] [address] [place], [address] PLT Normal 150-450 [facility] Comment on above: Result Comment: Canc elled via OM: Order cancelled - Patient discharged Performed By: #### L 100.0100, L500.2500 ####[facility] [address] [place], [address] RBC Normal 4.6-6.2 [facility] Comment on above: Result Comment: Canc elled via OM: Order cancelled - Patient discharged Performed By: #### L 100.0100, L500.2500 ####[facility] [address] [place], [address] RDW CV Normal 11.6-14.6 [facility] Comment on above: Result Comment: Canc elled via OM: Order cancelled - Patient discharged Performed By: #### L 100.0100, L500.2500 ####[facility] [address] [place], [address] RDW SD Normal 35.1-43.9 [facility] Comment on above: Result Comment: Canc elled via OM: Order cancelled - Patient discharged Performed By: #### L 100.0100, L500.2500 ####[facility] [address] [place], [address] WBC Normal 4.4-11.0 [facility] Comment on above: Result Comment: Canc elled via OM: Order cancelled - Patient discharged Performed By: #### L 100.0100, L500.2500 ####[facility] [address] [place], [address] UA DIP, URINE (POC)on 2023 BILIRUBIN UA (POCT) Negative Negative [facility] CLARITY UA (POCT) Cloudy [facility] COLOR UA (POCT) Yellow [facility] GLUCOSE UA (POCT) Negative Negative mg/dL [facility] Hemoglobin Ql (U) Negative Negative [facility] Interpretation and review of laboratory results Abnormal [facility] KETONE UA (POCT) Trace Negative mg/dL [facility] LEUKOCYTES UA (POCT) Trace Abnormal Negative [facility] NITRITE UA (POCT) Positive Abnormal Negative [facility] PH UA (POCT) 6.0 4.5 - 8.0 [facility] Protein Ql (U) 100 mg/dL Abnormal Negative [facility] SPECIFIC GRAVITY UA (POCT) 1.025 1.005 - 1.030 [facility] UROBILINOGEN UA (POCT) 0.2 Malaika l E.U./dL [facility] Location:[facility], [address], [place], [place], [address] [place] [address] POINT OF CARE [facility] Absolute lymphocyte countOrd ered By: Brody Maynard on 07-31-2023 Lymphocytes Auto (Unsp spec) [#/Vol] 0.39 10*3/uL 0.83-4.51 [facility] Automated lymphocyte count a s percentage of total leukocytesOrdered By: Brody Maynard on 07-31-2023 Lymphocytes/100 WBC Auto (Unsp spec) 7.1 % 19-41 [facility] Basophil percentageOrdered B y: Brody Maynard on 07-31-2023 Basophil percentage 12.6 g/dL 13.0-16.5 [facility] Basophil percentage 113 mg/dL 74-106 [facility] Basophil percentage 139 mmol/L 136-145 [facility] Basophil percentage 4.0 mmol/L 3.5-5.1 [facility] Basophil percentage 102 mmol/L 98-107 [facility] Basophils (Bld) [#/Vol] 5.5 10*3/uL 4.4-11.0 [facility] Basophils (Bld) [#/Vol] 4.7 10*3/uL 2.0-7.7 [facility] Basophils/100 WBC (Bld) 85.0 % 47-70 [facility] Basophils/100 WBC (Bld) 7.1 % 0-10 [facility] Basophils/100 WBC (Bld) 0.0 % 0-5 [facility] Basophils/100 WBC (Bld) 0.4 % 0-1 [facility] Determination of erythrocyte mean corpuscular volume (MCV)Ordered By: Brody Maynard on 07-31-2023 MCV (RBC) [Entitic vol] 98.4 fL 80-94 [facility] Erythrocyte distribution wid th ratioOrdered By: Brody Maynard on 07-31-2023 Erythrocyte distribution width (RBC) [Ratio] 13.2 % 11.6-14.6 [facility] Erythrocyte distribution wid th standard deviationOrdered By: Brody Maynard on 07-31-2023 Erythrocyte distribution width (RBC) [Entitic vol] 47.2 fL 35.1-43.9 [facility] Hematocrit Auto (Bld) [Volum e fraction]Ordered By: Brody Maynard on 07-31-2023 Hematocrit (Bld) [Volume fraction] 37.9 % 40-54 [facility] Immature granulocytes/100 WB C Auto (Bld)Ordered By: Brody Maynard on 07-31-2023 Immature granulocytes/100 WBC (Bld) 0.400 % 0.0-0.9 [facility] No Panel InformationOrdered By: Brody Maynard on 07-31-2023 32.7 pg 27.0-32.0 [facility] 33.2 g/dL 32-36 [facility] 284 K/mm3 150-450 [facility] 10.1 fl 6.2-12.0 [facility] 0 % 0-5 [facility] 77 mL/min >60 [facility] 93 mL/min >60 [facility] 60.90 ml/min [facility] 22.8 RATIO 10-20 [facility] 29.0 mmol/L 21.0-32.0 [facility] RBC Auto (Bld) [#/Vol]Ordere d By: Brody Maynard on 07-31-2023 RBC (Bld) [#/Vol] 3.85 10*6/uL 4.6-6.2 [facility] Serum or plasma calcium luis urement (mass/volume)Ordered By: Brody Maynard on 07-31-2023 Calcium [Mass/Vol] 8.6 mg/dL 8.5-10.1 [facility] Serum or plasma creatinine m easurement (mass/volume)Ordered By: Broyd Maynard on 07-31-2023 Creatinine [Mass/Vol] 1.01 mg/dL 0.70-1.30 [facility] Serum or plasma urea nitroge n measurement (mass/volume)Ordered By: Brody Maynard on 07-31-2023 Urea nitrogen [Mass/Vol] 23 mg/dL 7-18 [facility] Thin prep Papanicolaou smear with manual screeningOrdered By: Brody Maynard on 07-31-2023 Thin prep Papanicolaou smear with manual screening 8 5-15 [facility] Absolute lymphocyte countOrd ered By: Андрей Ng on 07-30-2023 Lymphocytes Auto (Unsp spec) [#/Vol] 0.60 10*3/uL 0.83-4.51 [facility] Automated lymphocyte count a s percentage of total leukocytesOrdered By: Андрей Ng on 07-30-2023 Lymphocytes/100 WBC Auto (Unsp spec) 10.9 % 19-41 [facility] Base excessOrdered By: ED VA OVIDER on 07-30-2023 Base excess Calc (BldV) [Moles/Vol] 2 mmol/L -1.0-3.5 [facility] Basophil percentageOrdered B y: Андрей Ng on 07-30-2023 Basophil percentage 0 SEEN /hpf 0-5 [facility] Basophil percentage 13.3 g/dL 13.0-16.5 [facility] Basophil percentage 114 mg/dL 74-106 [facility] Basophil percentage 138 mmol/L 136-145 [facility] Basophil percentage 4.2 mmol/L 3.5-5.1 [facility] Basophil percentage 102 mmol/L 98-107 [facility] Basophils (Bld) [#/Vol] 5.5 10*3/uL 4.4-11.0 [facility] Basophils (Bld) [#/Vol] 4.2 10*3/uL 2.0-7.7 [facility] Basophils/100 WBC (Bld) 76.5 % 47-70 [facility] Basophils/100 WBC (Bld) 10.7 % 0-10 [facility] Basophils/100 WBC (Bld) 0.5 % 0-5 [facility] Basophils/100 WBC (Bld) 0.9 % 0-1 [facility] Bilirubin Test strip Ql (U)O rdered By: Андрей Ng on 07-30-2023 Bilirubin Ql (U) Negative Negative [facility] CO2 (BldV) [Moles/Vol]Ordere d By: ED PROVIDER on 07-30-2023 CO2 [Moles/Vol] 29 mmol/L 23-33 [facility] Determination of erythrocyte mean corpuscular volume (MCV)Ordered By: Андрей Ng on 07-30-2023 MCV (RBC) [Entitic vol] 99.3 fL 80-94 [facility] Erythrocyte distribution wid th ratioOrdered By: Андрей Ng on 07-30-2023 Erythrocyte distribution width (RBC) [Ratio] 13.2 % 11.6-14.6 [facility] Erythrocyte distribution wid th standard deviationOrdered By: Андрей Ng on 07-30-2023 Erythrocyte distribution width (RBC) [Entitic vol] 48.3 fL 35.1-43.9 [facility] Hematocrit Auto (Bld) [Volum e fraction]Ordered By: Андрей Ng on 07-30-2023 Hematocrit (Bld) [Volume fraction] 40.4 % 40-54 [facility] Immature granulocytes/100 WB C Auto (Bld)Ordered By: Андрей Ng on 07-30-2023 Immature granulocytes/100 WBC (Bld) 0.500 % 0.0-0.9 [facility] Ketones Test strip Ql (U)Ord ered By: Андрей Ng on 07-30-2023 Ketones Ql (U) Negative Negative [facility] Mucus LM Ql (Urine sed)Order ed By: Андрей Ng on 07-30-2023 Mucus Ql (Urine sed) 0 SEEN /hpf [facility] Nitrite Test strip Ql (U)Ord ered By: Андрей Ng on 07-30-2023 Nitrite Ql (U) Negative Negative [facility] No Panel InformationOrdered By: Андрей Ng on 07-30-2023 0 SEEN /hpf 0-5 [facility] Influenzae A [facility] 32.7 pg 27.0-32.0 [facility] 32.9 g/dL 32-36 [facility] 262 K/mm3 150-450 [facility] 9.4 fl 6.2-12.0 [facility] 0 % 0-5 [facility] 67 mL/min >60 [facility] 81 mL/min >60 [facility] 55.00 ml/min [facility] 22.8 RATIO 10-20 [facility] 15 pg/mL 3.0-78.0 [facility] 29.0 mmol/L 21.0-32.0 [facility] 218.8 pg/mL 0-100 [facility] No Panel InformationOrdered By: ED PROVIDER on 07-30-[address] [facility] Not entered [facility] Cannula [facility] 3.0 [facility] 28 mmol/L 22-26 [facility] 69 % 50-70 [facility] PCO2 venousOrdered By: ED VA OVIDER on 07-30-2023 CO2 (BldV) [Partial pressure] 48.6 mm[Hg] 41-51 [facility] PO2 venousOrdered By: ED PRO VIDER on 07-30-2023 Oxygen (BldV) [Partial pressure] 38 mm[Hg] 25-40 [facility] Protein Test strip Ql (U)Ord ered By: Андрей Ng on 07-30-2023 Protein Ql (U) 30 mg/dl Negative [facility] RBC Auto (Bld) [#/Vol]Ordere d By: Андрей Ng on 07-30-2023 RBC (Bld) [#/Vol] 4.07 10*6/uL 4.6-6.2 [facility] Serum or plasma calcium luis urement (mass/volume)Ordered By: Андрей Ng on 07-30-2023 Calcium [Mass/Vol] 9.2 mg/dL 8.5-10.1 [facility] Serum or plasma creatinine m easurement (mass/volume)Ordered By: Андрей Ng on 07-30-2023 Creatinine [Mass/Vol] 1.14 mg/dL 0.70-1.30 [facility] Serum or plasma urea nitroge n measurement (mass/volume)Ordered By: Андерй Ng on 07-30-2023 Urea nitrogen [Mass/Vol] 26 mg/dL 7-18 [facility] Squamous epithelial cells de tection in urine sediment by light microscopyOrdered By: Андрей Ng on 07-30-2023 Epithelial cells.squamous LM Ql (Urine sed) 0 SEEN /hpf 0-5 [facility] Thin prep Papanicolaou smear with manual screeningOrdered By: Андрей Ng on 07-30-2023 Thin prep Papanicolaou smear with manual screening 7 5-15 [facility] Urine blood detectionOrdered By: Андрей Ng on 07-30-2023 RBC Ql (U) 10 /ul Negative [facility] Urine clarityOrdered By: Italia Ng on 07-30-2023 Clarity (U) Clear Clear [facility] Urine color determinationOrd ered By: Андрей Ng on 07-30-2023 Color (U) Yellow Yellow [facility] Urine glucose detectionOrder ed By: Андрей Ng on 07-30-2023 Glucose Ql (U) Normal mg/dl Normal [facility] Urine leukocyte esterase det ection by dipstickOrdered By: Андрей Ng on 07-30-2023 Leukocyte esterase Test strip Ql (U) Negative Negative [facility] Urine pHOrdered By: Андрей garland on 07-30-2023 pH (U) 7.0 [pH] 5.0 - 8.0 [facility] Urine sediment bacteria coun t by microscopy (number/high power field)Ordered By: Андрей Ng on 07-30-2023 Bacteria LM.HPF (Urine sed) [#/Area] 0 /[HPF] None Seen [facility] Urine specific gravity measu rementOrdered By: Андрей Ng on 07-30-2023 Specific gravity (U) [Rel density] 1.010 1.002-1.030 [facility] Urine urobilinogen measureme ntOrdered By: Андрей Ng on 07-30-2023 Urobilinogen Ql (U) Normal mg/dl Normal [facility] Venous blood pH measurementO rdered By: ED PROVIDER on 07-30-2023 pH (BldV) 7.36 [pH] 7.32-7.42 [facility] Basophil percentageOrdered B y: Андрей Cooley on 07-27-2023 Basophil percentage 12.8 g/dL 13.0-16.5 [facility] Basophil percentage 103 mg/dL 74-106 [facility] Basophil percentage 141 mmol/L 136-145 [facility] Basophil percentage 3.7 mmol/L 3.5-5.1 [facility] Basophil percentage 110 mmol/L 98-107 [facility] Basophils (Bld) [#/Vol] 6.8 10*3/uL 4.4-11.0 [facility] Determination of erythrocyte mean corpuscular volume (MCV)Ordered By: Андрей Cooley on 07-27-2023 MCV (RBC) [Entitic vol] 98.5 fL 80-94 [facility] Erythrocyte distribution wid th ratioOrdered By: Андрей Cooley on 07-27-2023 Erythrocyte distribution width (RBC) [Ratio] 13.1 % 11.6-14.6 [facility] Erythrocyte distribution wid th standard deviationOrdered By: Андрей Cooley on 07-27-2023 Erythrocyte distribution width (RBC) [Entitic vol] 46.7 fL 35.1-43.9 [facility] Hematocrit Auto (Bld) [Volum e fraction]Ordered By: Андрей Cooley on 07-27-2023 Hematocrit (Bld) [Volume fraction] 38.9 % 40-54 [facility] No Panel InformationOrdered By: Андрей Cooley on 07-27-2023 32.4 pg 27.0-32.0 [facility] 32.9 g/dL 32-36 [facility] 246 K/mm3 150-450 [facility] 10.1 fl 6.2-12.0 [facility] 56 mL/min >60 [facility] 68 mL/min >60 [facility] 26.5 RATIO 10-20 [facility] 29.0 mmol/L 21.0-32.0 [facility] RBC Auto (Bld) [#/Vol]Ordere d By: Андрей Cooley on 07-27-2023 RBC (Bld) [#/Vol] 3.95 10*6/uL 4.6-6.2 [facility] Serum or plasma calcium luis urement (mass/volume)Ordered By: Андрей Cooley on 07-27-2023 Calcium [Mass/Vol] 9.5 mg/dL 8.5-10.1 [facility] Serum or plasma creatinine m easurement (mass/volume)Ordered By: Андрей Cooley on 07-27-2023 Creatinine [Mass/Vol] 1.32 mg/dL 0.70-1.30 [facility] Serum or plasma urea nitroge n measurement (mass/volume)Ordered By: Андрей Cooley on 07-27-2023 Urea nitrogen [Mass/Vol] 35 mg/dL 7-18 [facility] Thin prep Papanicolaou smear with manual screeningOrdered By: Андрей Cooley on 07-27-2023 Thin prep Papanicolaou smear with manual screening 2 5-15 [facility] Absolute lymphocyte countOrd ered By: Андрей Cooley on 07-25-2023 Lymphocytes Auto (Unsp spec) [#/Vol] 1.22 10*3/uL 0.83-4.51 [facility] Automated lymphocyte count a s percentage of total leukocytesOrdered By: Андрей Cooley on 07-25-2023 Lymphocytes/100 WBC Auto (Unsp spec) 17.6 % 19-41 [facility] Basophil percentageOrdered B y: Андрей Cooley on 07-25-2023 Basophil percentage 14.3 g/dL 13.0-16.5 [facility] Basophil percentage 126 mg/dL 74-106 [facility] Basophil percentage 138 mmol/L 136-145 [facility] Basophil percentage 3.5 mmol/L 3.5-5.1 [facility] Basophil percentage 105 mmol/L 98-107 [facility] Basophils (Bld) [#/Vol] 6.9 10*3/uL 4.4-11.0 [facility] Basophils (Bld) [#/Vol] 4.9 10*3/uL 2.0-7.7 [facility] Basophils/100 WBC (Bld) 70.5 % 47-70 [facility] Basophils/100 WBC (Bld) 10.0 % 0-10 [facility] Basophils/100 WBC (Bld) 0.7 % 0-5 [facility] Basophils/100 WBC (Bld) 0.9 % 0-1 [facility] Determination of erythrocyte mean corpuscular volume (MCV)Ordered By: Андрей Cooley on 07-25-2023 MCV (RBC) [Entitic vol] 95.2 fL 80-94 [facility] Erythrocyte distribution wid th ratioOrdered By: Андрей Cooley on 07-25-2023 Erythrocyte distribution width (RBC) [Ratio] 12.7 % 11.6-14.6 [facility] Erythrocyte distribution wid th standard deviationOrdered By: Андрей Cooley on 07-25-2023 Erythrocyte distribution width (RBC) [Entitic vol] 44.9 fL 35.1-43.9 [facility] Hematocrit Auto (Bld) [Volum e fraction]Ordered By: Андрей Cooley on 07-25-2023 Hematocrit (Bld) [Volume fraction] 41.9 % 40-54 [facility] Immature granulocytes/100 WB C Auto (Bld)Ordered By: Андрей Cooley on 07-25-2023 Immature granulocytes/100 WBC (Bld) 0.300 % 0.0-0.9 [facility] No Panel InformationOrdered By: Андрей Cooley on 07-25-2023 32.5 pg 27.0-32.0 [facility] 34.1 g/dL 32-36 [facility] 245 K/mm3 150-450 [facility] 9.7 fl 6.2-12.0 [facility] 0 % 0-5 [facility] 62 mL/min >60 [facility] 75 mL/min >60 [facility] 39.28 ml/min [facility] 13.2 RATIO 10-20 [facility] 25.0 mmol/L 21.0-32.0 [facility] RBC Auto (Bld) [#/Vol]Ordere d By: Андрей Cooley on 07-25-2023 RBC (Bld) [#/Vol] 4.40 10*6/uL 4.6-6.2 [facility] Serum or plasma calcium luis urement (mass/volume)Ordered By: Андрей Cooley on 07-25-2023 Calcium [Mass/Vol] 9.3 mg/dL 8.5-10.1 [facility] Serum or plasma creatinine m easurement (mass/volume)Ordered By: Андрей Cooley on 07-25-2023 Creatinine [Mass/Vol] 1.21 mg/dL 0.70-1.30 [facility] Serum or plasma urea nitroge n measurement (mass/volume)Ordered By: Андрей Cooley on 07-25-2023 Urea nitrogen [Mass/Vol] 16 mg/dL 7-18 [facility] Thin prep Papanicolaou smear with manual screeningOrdered By: Андрей Cooley on 07-25-2023 Thin prep Papanicolaou smear with manual screening 8 5-15 [facility] Absolute lymphocyte countOrd ered By: Raul Melchor on 07-24-2023 Lymphocytes Auto (Unsp spec) [#/Vol] 1.14 10*3/uL 0.83-4.51 [facility] Automated lymphocyte count a s percentage of total leukocytesOrdered By: Raul Melchor on 07-24-2023 Lymphocytes/100 WBC Auto (Unsp spec) 16.0 % 19-41 [facility] Basophil percentageOrdered B y: Raul Melchor on 07-24-2023 Basophils/100 WBC (Bld) 1.0 % 0-1 [facility] Chloride [Moles/Vol] 103 mmol/L 98-107 [facility] Eosinophils/100 WBC (Bld) 1.1 % 0-5 [facility] Glucose [Mass/Vol] 134 mg/dL 74-106 [facility] Comment on above: Fasting Glucose resu lt greater than or equal to 126 mg/dL suggests DIABETES MELLITUS per A.D.A. criteria. Hemoglobin (Bld) [Mass/Vol] 16.2 g/dL 13.0-16.5 [facility] Monocytes/100 WBC (Bld) 7.3 % 0-10 [facility] Neutrophils (Bld) [#/Vol] 5.3 10*3/uL 2.0-7.7 [facility] Neutrophils/100 WBC (Bld) 74.0 % 47-70 [facility] Potassium [Moles/Vol] 3.8 mmol/L 3.5-5.1 [facility] Comment on above: Moderate Hemolysis, Result may be falsely increased. Sodium [Moles/Vol] 139 mmol/L 136-145 [facility] WBC (Bld) [#/Vol] 7.1 10*3/uL 4.4-11.0 [facility] Determination of erythrocyte mean corpuscular volume (MCV)Ordered By: Raul Melchor on 07-24-2023 MCV (RBC) [Entitic vol] 94.8 fL 80-94 [facility] Erythrocyte distribution wid th ratioOrdered By: Raul Melchor on 07-24-2023 Erythrocyte distribution width (RBC) [Ratio] 12.8 % 11.6-14.6 [facility] Erythrocyte distribution wid th standard deviationOrdered By: Raul Melchor on 07-24-2023 Erythrocyte distribution width (RBC) [Entitic vol] 44.3 fL 35.1-43.9 [facility] Hematocrit Auto (Bld) [Volum e fraction]Ordered By: Raul Melchor on 07-24-2023 Hematocrit (Bld) [Volume fraction] 47.4 % 40-54 [facility] Immature granulocytes/100 WB C Auto (Bld)Ordered By: Raul Melchor on 07-24-2023 Immature granulocytes/100 WBC (Bld) 0.600 % 0.0-0.9 [facility] Comment on above: IG% - Immature Granu locytes (promyelocytes, myelocytes and metamyelocytes) > 1% indicates that a LEFT SHIFT is Present. Laboratory - Chemistry and C hemistry - challengeOrdered By: Raul Melchor on 07-24-2023 CO2 [Moles/Vol] 28.0 mmol/L 21.0-32.0 [facility] Urea nitrogen/Creatinine [Mass ratio] 14.1 mg/mg 10-20 [facility] Laboratory - Hematology and Cell countsOrdered By: Raul Melchor on 07-24-2023 MCH (RBC) [Entitic mass] 32.4 pg 27.0-32.0 [facility] MCHC (RBC) [Mass/Vol] 34.2 g/dL 32-36 [facility] Nucleated RBC/100 WBC (Bld) [Ratio] 0 % 0-5 [facility] Platelets (Bld) [#/Vol] 285 10*3/uL 150-450 [facility] No Panel InformationOrdered By: Raul Melchor on 07-24-2023 Estimated Creatinine Clearance Calc 48.70 ml/min [facility] Estimated GFR (MDRD) Amer 71 mL/min >60 [facility] Comment on above: GFR Calc Estimated GFR (MDRD) Non-Af Amer 58 mL/min >60 [facility] Comment on above: Non- GFR Calc Platelet mean volume Ye-Ec ker (Bld) [Entitic vol]Ordered By: Raul Melchor on 07-24-2023 Platelet mean volume (Bld) [Entitic vol] 9.8 fL 6.2-12.0 [facility] RBC Auto (Bld) [#/Vol]Ordere d By: Raul Melchor on 07-24-2023 RBC (Bld) [#/Vol] 5.00 10*6/uL 4.6-6.2 [facility] Serum or plasma calcium luis urement (mass/volume)Ordered By: Raul Melchor on 07-24-2023 Calcium [Mass/Vol] 9.8 mg/dL 8.5-10.1 [facility] Serum or plasma creatinine m easurement (mass/volume)Ordered By: Raul Melchor on 07-24-2023 Creatinine [Mass/Vol] 1.28 mg/dL 0.70-1.30 [facility] Comment on above: The validity of the calculated GFR & GFRAA in patients over 70 years has not been determined. Clinical correlation is essential. Serum or plasma urea nitroge n measurement (mass/volume)Ordered By: Raul Melchor on 07-24-2023 Urea nitrogen [Mass/Vol] 18 mg/dL 7-18 [facility] Thin prep Papanicolaou smear with manual screeningOrdered By: Raul Melchor on 07-24-2023 Thin prep Papanicolaou smear with manual screening 8 5-15 [facility] UAon 07-10-2023 Color (U) Yellow Normal [facility] ([place]) Comment on above: Performed By: #### U A #### [address] [address] Glucose (U) [Mass/Vol] Negative Normal Negative [facility] ([place]) Comment on above: Performed By: #### U A #### [address] [address] Ketones Ql (U) Negative Normal Neg-Trace [facility] ([place]) Comment on above: Performed By: #### U A #### [address] [address] UA Appear Clear Normal Clear [facility] ([place]) Comment on above: Performed By: #### U A #### [address] [address] UA Blood Negative Normal Neg-Trace [facility] ([place]) Comment on above: Performed By: #### U A #### [address] [address] UA Leuk Est Negative Normal Negative [facility] ([place]) Comment on above: Performed By: #### U A #### [address] [address] UA Nitrite Negative Normal Negative [facility] ([place]) Comment on above: Performed By: #### U A #### [place] [address] UA pH 5.5 Normal 5.0 - 8.0 [facility] ([place]) Comment on above: Performed By: #### U A #### [place] [address] UA Protein 30 mg/dL Normal Negative [facility] ([place]) Comment on above: Performed By: #### U A #### [place] [address] UA Spec Grav 1.020 Normal 1.006-1.029 [facility] ([place]) Comment on above: Performed By: #### U A #### [place] [address] UA Specimen Type Void Normal [facility] ([place]) Comment on above: Performed By: #### U A #### [place] [address] UA Urobilinogen 0.2 E.U./dL Normal 0.2-1.0 [facility] ([place]) Comment on above: Performed By: #### U A #### [place] [address] Urobilinogen (U) [Mass/Vol] Negative Normal Neg-Trace [facility] ([place]) Comment on above: Performed By: #### U A #### [place] [address] Absolute lymphocyte countOrd ered By: Daija Morton on 06-14-2023 Lymphocytes Auto (Unsp spec) [#/Vol] 1.09 10*3/uL 0.83-4.51 [facility] Basophil percentageOrdered B y: Daija Morton on 06-14-2023 Basophil percentage 108 mg/dL 74-106 [facility] Basophil percentage 139 mmol/L 136-145 [facility] Basophil percentage 4.2 mmol/L 3.5-5.1 [facility] Basophil percentage 104 mmol/L 98-107 [facility] Basophils (Bld) [#/Vol] 6.5 10*3/uL 4.4-11.0 [facility] Basophils (Bld) [#/Vol] 4.7 10*3/uL 2.0-7.7 [facility] Basophils/100 WBC (Bld) 1.4 % 0-1 [facility] Basophils/100 WBC (Bld) 72.2 % 47-70 [facility] Basophils/100 WBC (Bld) 2.0 % 0-5 [facility] Chloride [Moles/Vol] 104 mmol/L 98-107 [facility] Eosinophils/100 WBC (Bld) 2.0 % 0-5 [facility] Glucose [Mass/Vol] 108 mg/dL 74-106 [facility] Comment on above: Fasting Glucose resu lt from 100 to 125 mg/dL suggests IMPAIRED HOMEOSTASIS per A.D.A. criteria. Neutrophils (Bld) [#/Vol] 4.7 10*3/uL 2.0-7.7 [facility] Neutrophils/100 WBC (Bld) 72.2 % 47-70 [facility] Potassium [Moles/Vol] 4.2 mmol/L 3.5-5.1 [facility] Sodium [Moles/Vol] 139 mmol/L 136-145 [facility] WBC (Bld) [#/Vol] 6.5 10*3/uL 4.4-11.0 [facility] Blood erythrocytes count (nu mber/volume)Ordered By: Daija Morton on 06-14-2023 RBC (Bld) [#/Vol] 4.73 10*6/uL 4.6-6.2 [facility] Blood hemoglobin measurement (mass/volume)Ordered By: Daija Morton on 06-14-2023 Hemoglobin (Bld) [Mass/Vol] 15.8 g/dL 13.0-16.5 [facility] Blood lymphocytes/100 leukoc ytesOrdered By: Daija Morton on 06-14-2023 Lymphocytes/100 WBC (Bld) 16.8 % 19-41 [facility] Blood monocytes/100 leukocyt esOrdered By: Daija Morton on 06-14-2023 Monocytes/100 WBC (Bld) 7.1 % 0-10 [facility] Blood platelet mean volumeOr dered By: Daija Morton on 06-14-2023 Platelet mean volume (Bld) [Entitic vol] 9.9 fL 6.2-12.0 [facility] Determination of erythrocyte mean corpuscular volume (MCV)Ordered By: Daija Morton on 06-14-2023 MCV (RBC) [Entitic vol] 96.6 fL 80-94 [facility] Hematocrit Auto (Bld) [Volum e fraction]Ordered By: Daija Morton on 06-14-2023 Hematocrit (Bld) [Volume fraction] 45.7 % 40-54 [facility] Laboratory - Chemistry and C hemistry - challengeOrdered By: Daija Morton on 06-14-2023 CO2 [Moles/Vol] 30.0 mmol/L 21.0-32.0 [facility] Urea nitrogen/Creatinine [Mass ratio] 16.1 mg/mg 10-20 [facility] Laboratory - Hematology and Cell countsOrdered By: Daija Morton on 06-14-2023 Erythrocyte distribution width (RBC) [Entitic vol] 46.5 fL 35.1-43.9 [facility] Erythrocyte distribution width (RBC) [Ratio] 13.1 % 11.6-14.6 [facility] Immature granulocytes/100 WBC (Bld) 0.500 % 0.0-0.9 [facility] Comment on above: IG% - Immature Granu locytes (promyelocytes, myelocytes and metamyelocytes) > 1% indicates that a LEFT SHIFT is Present. MCH (RBC) [Entitic mass] 33.4 pg 27.0-32.0 [facility] Nucleated RBC/100 WBC (Bld) [Ratio] 0 % 0-5 [facility] MCHC Auto (RBC) [Mass/Vol]Or dered By: Daija Morton on 06-14-2023 MCHC (RBC) [Mass/Vol] 34.6 g/dL 32-36 [facility] No Panel InformationOrdered By: Daija Morton on 06-14-2023 Estimated GFR (MDRD) Amer 73 mL/min >60 [facility] Comment on above: GFR Calc Estimated GFR (MDRD) Non-Af Amer 61 mL/min >60 [facility] Comment on above: Non- GFR Calc 33.4 pg 27.0-32.0 [facility] 13.1 % 11.6-14.6 [facility] 46.5 fl 35.1-43.9 [facility] 0.500 % 0.0-0.9 [facility] 0 % 0-5 [facility] 61 mL/min >60 [facility] 73 mL/min >60 [facility] 16.1 RATIO 10-20 [facility] 30.0 mmol/L 21.0-32.0 [facility] Platelets bldOrdered By: Nemesio Morton on 06-14-2023 Platelets (Bld) [#/Vol] 285 10*3/uL 150-450 [facility] Serum or plasma calcium luis urement (mass/volume)Ordered By: Daija Motron on 06-14-2023 Calcium [Mass/Vol] 9.8 mg/dL 8.5-10.1 [facility] Serum or plasma creatinine m easurement (mass/volume)Ordered By: Daija Morton on 06-14-2023 Creatinine [Mass/Vol] 1.24 mg/dL 0.70-1.30 [facility] Comment on above: The validity of the calculated GFR & GFRAA in patients over 70 years has not been determined. Clinical correlation is essential. Serum or plasma urea nitroge n measurement (mass/volume)Ordered By: Daija Morton on 06-14-2023 Urea nitrogen [Mass/Vol] 20 mg/dL 7-18 [facility] Thin prep Papanicolaou smear with manual screeningOrdered By: Daija Morton on 06-14-2023 Thin prep Papanicolaou smear with manual screening 5 5-15 [facility] Basophil percentageOrdered B y: Андрей Cooley [...] [facility] Basophils (Bld) [#/Vol] 6.2 10*3/uL 4.4-11.0 [facility] Bilirubin [Mass/Vol] 0.30 mg/dL 0.20-1.00 [facility] Comment on above: For patients on eltr ombopag therapy, use of Dimension [place] TBIL is not recommended. Chloride [Moles/Vol] 109 mmol/L 98-107 [facility] Glucose [Mass/Vol] 100 mg/dL 74-106 [facility] Comment on above: Fasting Glucose resu lt from 100 to 125 mg/dL suggests IMPAIRED HOMEOSTASIS per A.D.A. criteria. Potassium [Moles/Vol] 3.6 mmol/L 3.5-5.1 [facility] Protein [Mass/Vol] 6.5 g/dL 6.4-8.2 [facility] Sodium [Moles/Vol] 141 mmol/L 136-145 [facility] WBC (Bld) [#/Vol] 6.2 10*3/uL 4.4-11.0 [facility] Blood erythrocytes count (nu mber/volume)Ordered By: Андрей Cooley on 05-19-2023 RBC (Bld) [#/Vol] 4.24 10*6/uL 4.6-6.2 [facility] Blood hemoglobin measurement (mass/volume)Ordered By: Андрей Cooley on 05-19-2023 Hemoglobin (Bld) [Mass/Vol] 13.8 g/dL 13.0-16.5 [facility] Blood platelet mean volumeOr dered By: Андрей Cooley on 05-19-2023 Platelet mean volume (Bld) [Entitic vol] 9.9 fL 6.2-12.0 [facility] Determination of erythrocyte mean corpuscular volume (MCV)Ordered By: Андрей Cooley on 05-19-2023 MCV (RBC) [Entitic vol] 99.5 fL 80-94 [facility] Hematocrit Auto (Bld) [Volum e fraction]Ordered By: Андрей Cooley on 05-19-2023 Hematocrit (Bld) [Volume fraction] 42.2 % 40-54 [facility] Laboratory - Chemistry and C hemistry - challengeOrdered By: Андрей Cooley on 05-19-2023 ALP [Catalytic activity/Vol] 72 U/L 45-117 [facility] ALT [Catalytic activity/Vol] 33 U/L 16- [facility] CO2 [Moles/Vol] 29.0 mmol/L 21.0-32.0 [facility] Globulin (S) [Mass/Vol] 3.1 g/dL 2.2-4.2 [facility] Urea nitrogen/Creatinine [Mass ratio] 18.6 mg/mg 10-20 [facility] Laboratory - Hematology and Cell countsOrdered By: Андрей Cooley on 05-19-2023 Erythrocyte distribution width (RBC) [Entitic vol] 52.4 fL 35.1-43.9 [facility] Erythrocyte distribution width (RBC) [Ratio] 14.3 % 11.6-14.6 [facility] MCH (RBC) [Entitic mass] 32.5 pg 27.0-32.0 [facility] MCHC Auto (RBC) [Mass/Vol]Or dered By: Андрей Cooley on 05-19-2023 MCHC (RBC) [Mass/Vol] 32.7 g/dL 32-36 [facility] No Panel InformationOrdered By: Андрей Cooley on 05-19-2023 Estimated GFR (MDRD) Amer 78 mL/min >60 [facility] Comment on above: GFR Calc Estimated GFR (MDRD) Non-Af Amer 64 mL/min >60 [facility] Comment on above: Non- GFR Calc 32.5 pg 27.0-32.0 [facility] 14.3 % 11.6-14.6 [facility] 52.4 fl 35.1-43.9 [facility] 64 mL/min >60 [facility] 78 mL/min >60 [facility] 18.6 RATIO 04-07 [facility] 3.1 g/dL 2.2-4.2 [facility] 72 U/L 45-117 [facility] 33 U/L 16- [facility] 29.0 mmol/L 21.0-32.0 [facility] Platelets bldOrdered By: Italia Cooley on 05-19-2023 Platelets (Bld) [#/Vol] 284 10*3/uL 150-450 [facility] Serum or plasma albumin luis urement (mass/volume)Ordered By: Андрей Cooley on 05-19-2023 Albumin [Mass/Vol] 3.4 g/dL 3.2-5.0 [facility] Serum or plasma albumin/glob ulin mass ratioOrdered By: Андрей Cooley on 05-19-2023 Albumin/Globulin [Mass ratio] 1.1 {ratio} 0.9-2.4 [facility] Serum or plasma calcium luis urement (mass/volume)Ordered By: Андрей Cooley on 05-19-2023 Calcium [Mass/Vol] 8.7 mg/dL 8.5-10.1 [facility] Serum or plasma creatinine m easurement (mass/volume)Ordered By: Андрей Cooley on 05-19-2023 Creatinine [Mass/Vol] 1.18 mg/dL 0.70-1.30 [facility] Comment on above: The validity of the calculated GFR & GFRAA in patients over 70 years has not been determined. Clinical correlation is essential. Serum or plasma urea nitroge n measurement (mass/volume)Ordered By: Андрей Cooley on 05-19-2023 Urea nitrogen [Mass/Vol] 22 mg/dL 7-18 [facility] Thin prep Papanicolaou smear with manual screeningOrdered By: Андрей Cooley on 05-19-2023 Thin prep Papanicolaou smear with manual screening 17 U/L 15-37 [facility] Thin prep Papanicolaou smear with manual screening 3 5-15 [facility] Basophil percentageOrdered B y: Андрей Cooley [...] [facility] Basophils (Bld) [#/Vol] 6.2 10*3/uL 4.4-11.0 [facility] Bilirubin [Mass/Vol] 0.20 mg/dL 0.20-1.00 [facility] Comment on above: For patients on eltr ombopag therapy, use of Dimension [place] TBIL is not recommended. Chloride [Moles/Vol] 105 mmol/L 98-107 [facility] Glucose [Mass/Vol] 92 mg/dL 74-106 [facility] Potassium [Moles/Vol] 4.0 mmol/L 3.5-5.1 [facility] Protein [Mass/Vol] 6.8 g/dL 6.4-8.2 [facility] Sodium [Moles/Vol] 140 mmol/L 136-145 [facility] WBC (Bld) [#/Vol] 6.2 10*3/uL 4.4-11.0 [facility] Blood erythrocytes count (nu mber/volume)Ordered By: Андрей Cooley on 04-19-2023 RBC (Bld) [#/Vol] 4.26 10*6/uL 4.6-6.2 [facility] Blood hemoglobin measurement (mass/volume)Ordered By: Андрей Cooley on 04-19-2023 Hemoglobin (Bld) [Mass/Vol] 13.6 g/dL 13.0-16.5 [facility] Blood platelet mean volumeOr dered By: Андрей Cooley on 04-19-2023 Platelet mean volume (Bld) [Entitic vol] 9.7 fL 6.2-12.0 [facility] Determination of erythrocyte mean corpuscular volume (MCV)Ordered By: Андрей Cooley on 04-19-2023 MCV (RBC) [Entitic vol] 99.5 fL 80-94 [facility] Hematocrit Auto (Bld) [Volum e fraction]Ordered By: Андрей Cooley on 04-19-2023 Hematocrit (Bld) [Volume fraction] 42.4 % 40-54 [facility] Laboratory - Chemistry and C hemistry - challengeOrdered By: Андрей Cooley on 04-19-2023 ALP [Catalytic activity/Vol] 82 U/L 45-117 [facility] ALT [Catalytic activity/Vol] 27 U/L 16-61 [facility] CO2 [Moles/Vol] 29.0 mmol/L 21.0-32.0 [facility] Globulin (S) [Mass/Vol] 3.5 g/dL 2.2-4.2 [facility] Urea nitrogen/Creatinine [Mass ratio] 22.2 mg/mg 10-20 [facility] Laboratory - Hematology and Cell countsOrdered By: Андрей Cooley on 04-19-2023 Erythrocyte distribution width (RBC) [Entitic vol] 51.8 fL 35.1-43.9 [facility] Erythrocyte distribution width (RBC) [Ratio] 14.4 % 11.6-14.6 [facility] MCH (RBC) [Entitic mass] 31.9 pg 27.0-32.0 [facility] MCHC Auto (RBC) [Mass/Vol]Or dered By: Андрей Cooley on 04-19-2023 MCHC (RBC) [Mass/Vol] 32.1 g/dL 32-36 [facility] No Panel InformationOrdered By: Андрей Cooley on 04-19-2023 Estimated GFR (MDRD) Amer 86 mL/min >60 [facility] Comment on above: GFR Calc Estimated GFR (MDRD) Non-Af Amer 71 mL/min >60 [facility] Comment on above: Non- GFR Calc 31.9 pg 27.0-32.0 [facility] 14.4 % 11.6-14.6 [facility] 51.8 fl 35.1-43.9 [facility] 71 mL/min >60 [facility] 86 mL/min >60 [facility] 22.2 RATIO 10-20 [facility] 3.5 g/dL 2.2-4.2 [facility] 82 U/L 45-117 [facility] 27 U/L 16-61 [facility] 29.0 mmol/L 21.0-32.0 [facility] Platelets bldOrdered By: Italia Cooley on 04-19-2023 Platelets (Bld) [#/Vol] 382 10*3/uL 150-450 [facility] Serum or plasma albumin luis urement (mass/volume)Ordered By: Андрей Cooley on 04-19-2023 Albumin [Mass/Vol] 3.3 g/dL 3.2-5.0 [facility] Serum or plasma albumin/glob ulin mass ratioOrdered By: Андрей Cooley on 04-19-2023 Albumin/Globulin [Mass ratio] 0.9 {ratio} 0.9-2.4 [facility] Serum or plasma calcium luis urement (mass/volume)Ordered By: Андрей Cooley on 04-19-2023 Calcium [Mass/Vol] 9.1 mg/dL 8.5-10.1 [facility] Serum or plasma creatinine m easurement (mass/volume)Ordered By: Андрей Cooley on 04-19-2023 Creatinine [Mass/Vol] 1.08 mg/dL 0.70-1.30 [facility] Comment on above: The validity of the calculated GFR & GFRAA in patients over 70 years has not been determined. Clinical correlation is essential. Serum or plasma urea nitroge n measurement (mass/volume)Ordered By: Андрей Cooley on 04-19-2023 Urea nitrogen [Mass/Vol] 24 mg/dL 7-18 [facility] Thin prep Papanicolaou smear with manual screeningOrdered By: Андрей Cooley on 04-19-2023 Thin prep Papanicolaou smear with manual screening 19 U/L 15-37 [facility] Thin prep Papanicolaou smear with manual screening 6 5-15 [facility] Whole blood hemoglobin A1c/t otal hemoglobin ratio (mass fraction)Ordered By: Андрей Cooley on 04-17-2023 HbA1c (Bld) [Mass fraction] 5.2 % 3.8-5.6 [facility] Comment on above: Normal < 5.7 [...] [facility] Basophils (Bld) [#/Vol] 7.8 10*3/uL 4.4-11.0 [facility] Bilirubin [Mass/Vol] 0.10 mg/dL 0.20-1.00 [facility] Comment on above: For patients on eltr ombopag therapy, use of Dimension [place] TBIL is not recommended. Chloride [Moles/Vol] 107 mmol/L 98-107 [facility] Glucose [Mass/Vol] 92 mg/dL 74-106 [facility] Potassium [Moles/Vol] 4.1 mmol/L 3.5-5.1 [facility] Protein [Mass/Vol] 6.4 g/dL 6.4-8.2 [facility] Sodium [Moles/Vol] 139 mmol/L 136-145 [facility] WBC (Bld) [#/Vol] 7.8 10*3/uL 4.4-11.0 [facility] Blood erythrocytes count (nu mber/volume)Ordered By: Андрей Cooley on 04-12-2023 RBC (Bld) [#/Vol] 4.04 10*6/uL 4.6-6.2 [facility] Blood hemoglobin measurement (mass/volume)Ordered By: Андрей Cooley on 04-12-2023 Hemoglobin (Bld) [Mass/Vol] 13.2 g/dL 13.0-16.5 [facility] Blood platelet mean volumeOr dered By: Андрей Cooley on 04-12-2023 Platelet mean volume (Bld) [Entitic vol] 9.7 fL 6.2-12.0 [facility] Determination of erythrocyte mean corpuscular volume (MCV)Ordered By: Андрей Cooley on 04-12-2023 MCV (RBC) [Entitic vol] 97.5 fL 80-94 [facility] Hematocrit Auto (Bld) [Volum e fraction]Ordered By: Андрей Cooley on 04-12-2023 Hematocrit (Bld) [Volume fraction] 39.4 % 40-54 [facility] Laboratory - Chemistry and C hemistry - challengeOrdered By: Андрей Cooley on 04-12-2023 ALP [Catalytic activity/Vol] 88 U/L 45-117 [facility] ALT [Catalytic activity/Vol] 32 U/L 16-61 [facility] CO2 [Moles/Vol] 26.0 mmol/L 21.0-32.0 [facility] Globulin (S) [Mass/Vol] 3.4 g/dL 2.2-4.2 [facility] Urea nitrogen/Creatinine [Mass ratio] 20.2 mg/mg - [facility] Laboratory - Hematology and Cell countsOrdered By: Андрей Cooley on 04-12-2023 Erythrocyte distribution width (RBC) [Entitic vol] 49.3 fL 35.1-43.9 [facility] Erythrocyte distribution width (RBC) [Ratio] 13.8 % 11.6-14.6 [facility] MCH (RBC) [Entitic mass] 32.7 pg 27.0-32.0 [facility] MCHC Auto (RBC) [Mass/Vol]Or dered By: Андрей Cooley on 04-12-2023 MCHC (RBC) [Mass/Vol] 33.5 g/dL 32-36 [facility] No Panel InformationOrdered By: Андрей Cooley on 04-12-2023 Estimated GFR (MDRD) Amer 77 mL/min >60 [facility] Comment on above: GFR Calc Estimated GFR (MDRD) Non-Af Amer 64 mL/min >60 [facility] Comment on above: Non- GFR Calc 32.7 pg 27.0-32.0 [facility] 13.8 % 11.6-14.6 [facility] 49.3 fl 35.1-43.9 [facility] 64 mL/min >60 [facility] 77 mL/min >60 [facility] 20.2 RATIO 04-07 [facility] 3.4 g/dL 2.2-4.2 [facility] 88 U/L 45-117 [facility] 32 U/L 16-61 [facility] 26.0 mmol/L 21.0-32.0 [facility] Platelets bldOrdered By: Italia Cooley on 04-12-2023 Platelets (Bld) [#/Vol] 385 10*3/uL 150-450 [facility] Serum or plasma albumin luis urement (mass/volume)Ordered By: Андрей Cooley on 04-12-2023 Albumin [Mass/Vol] 3.0 g/dL 3.2-5.0 [facility] Serum or plasma albumin/glob ulin mass ratioOrdered By: Андрей Cooley on 04-12-2023 Albumin/Globulin [Mass ratio] 0.9 {ratio} 0.9-2.4 [facility] Serum or plasma calcium luis urement (mass/volume)Ordered By: Андрей Cooley on 04-12-2023 Calcium [Mass/Vol] 8.7 mg/dL 8.5-10.1 [facility] Serum or plasma creatinine m easurement (mass/volume)Ordered By: Андрей Cooley on 04-12-2023 Creatinine [Mass/Vol] 1.19 mg/dL 0.70-1.30 [facility] Comment on above: The validity of the calculated GFR & GFRAA in patients over 70 years has not been determined. Clinical correlation is essential. Serum or plasma urea nitroge n measurement (mass/volume)Ordered By: Андрей Cooley on 04-12-2023 Urea nitrogen [Mass/Vol] 24 mg/dL 7-18 [facility] Thin prep Papanicolaou smear with manual screeningOrdered By: Андрей Cooley on 04-12-2023 Thin prep Papanicolaou smear with manual screening 21 U/L 15-37 [facility] Thin prep Papanicolaou smear with manual screening 6 5-15 [facility] Basophil percentageOrdered B y: Андрей Cooley [...] [facility] Basophils (Bld) [#/Vol] 5.8 10*3/uL 4.4-11.0 [facility] Bilirubin [Mass/Vol] 0.20 mg/dL 0.20-1.00 [facility] Comment on above: For patients on eltr ombopag therapy, use of Dimension [place] TBIL is not recommended. Chloride [Moles/Vol] 105 mmol/L 98-107 [facility] Glucose [Mass/Vol] 105 mg/dL 74-106 [facility] Comment on above: Fasting Glucose resu lt from 100 to 125 mg/dL suggests IMPAIRED HOMEOSTASIS per A.D.A. criteria. Potassium [Moles/Vol] 3.9 mmol/L 3.5-5.1 [facility] Protein [Mass/Vol] 6.7 g/dL 6.4-8.2 [facility] Sodium [Moles/Vol] 139 mmol/L 136-145 [facility] WBC (Bld) [#/Vol] 5.8 10*3/uL 4.4-11.0 [facility] Blood erythrocytes count (nu mber/volume)Ordered By: Андрей Cooley on 04-05-2023 RBC (Bld) [#/Vol] 4.40 10*6/uL 4.6-6.2 [facility] Blood hemoglobin measurement (mass/volume)Ordered By: Андрей Cooley on 04-05-2023 Hemoglobin (Bld) [Mass/Vol] 13.9 g/dL 13.0-16.5 [facility] Blood platelet mean volumeOr dered By: Андрей Cooley on 04-05-2023 Platelet mean volume (Bld) [Entitic vol] 9.5 fL 6.2-12.0 [facility] Determination of erythrocyte mean corpuscular volume (MCV)Ordered By: Андрей Cooley on 04-05-2023 MCV (RBC) [Entitic vol] 96.8 fL 80-94 [facility] Hematocrit Auto (Bld) [Volum e fraction]Ordered By: Андрей Cooley on 04-05-2023 Hematocrit (Bld) [Volume fraction] 42.6 % 40-54 [facility] Laboratory - Chemistry and C hemistry - challengeOrdered By: Андрей Cooley on 04-05-2023 ALP [Catalytic activity/Vol] 60 U/L 45-117 [facility] ALT [Catalytic activity/Vol] 54 U/L 16-61 [facility] CO2 [Moles/Vol] 28.0 mmol/L 21.0-32.0 [facility] Globulin (S) [Mass/Vol] 3.8 g/dL 2.2-4.2 [facility] Urea nitrogen/Creatinine [Mass ratio] 22.0 mg/mg 10- [facility] Laboratory - Hematology and Cell countsOrdered By: Андрей Cooley on 04-05-2023 Erythrocyte distribution width (RBC) [Entitic vol] 50.1 fL 35.1-43.9 [facility] Erythrocyte distribution width (RBC) [Ratio] 14.0 % 11.6-14.6 [facility] MCH (RBC) [Entitic mass] 31.6 pg 27.0-32.0 [facility] MCHC Auto (RBC) [Mass/Vol]Or dered By: Андрей Cooley on 04-05-2023 MCHC (RBC) [Mass/Vol] 32.6 g/dL 32-36 [facility] No Panel InformationOrdered By: Андрей Cooley on 04-05-2023 Estimated GFR (MDRD) Amer 85 mL/min >60 [facility] Comment on above: GFR Calc Estimated GFR (MDRD) Non-Af Amer 70 mL/min >60 [facility] Comment on above: Non- GFR Calc 31.6 pg 27.0-32.0 [facility] 14.0 % 11.6-14.6 [facility] 50.1 fl 35.1-43.9 [facility] 70 mL/min >60 [facility] 85 mL/min >60 [facility] 22.0 RATIO 04-07 [facility] 3.8 g/dL 2.2-4.2 [facility] 60 U/L 45-117 [facility] 54 U/L 16-61 [facility] 28.0 mmol/L 21.0-32.0 [facility] Platelets bldOrdered By: Italia Cooley on 04-05-2023 Platelets (Bld) [#/Vol] 399 10*3/uL 150-450 [facility] Serum or plasma albumin luis urement (mass/volume)Ordered By: Андрей Cooley on 04-05-2023 Albumin [Mass/Vol] 2.9 g/dL 3.2-5.0 [facility] Serum or plasma albumin/glob ulin mass ratioOrdered By: Андрей Cooley on 04-05-2023 Albumin/Globulin [Mass ratio] 0.8 {ratio} 0.9-2.4 [facility] Serum or plasma calcium luis urement (mass/volume)Ordered By: Андрей Cooley on 04-05-2023 Calcium [Mass/Vol] 9.3 mg/dL 8.5-10.1 [facility] Serum or plasma creatinine m easurement (mass/volume)Ordered By: Андрей Cooley on 04-05-2023 Creatinine [Mass/Vol] 1.09 mg/dL 0.70-1.30 [facility] Comment on above: The validity of the calculated GFR & GFRAA in patients over 70 years has not been determined. Clinical correlation is essential. Serum or plasma urea nitroge n measurement (mass/volume)Ordered By: Андрей Cooley on 04-05-2023 Urea nitrogen [Mass/Vol] 24 mg/dL 7-18 [facility] Thin prep Papanicolaou smear with manual screeningOrdered By: Андрей Cooley on 04-05-2023 Thin prep Papanicolaou smear with manual screening 38 U/L 15-37 [facility] Thin prep Papanicolaou smear with manual screening 6 5-15 [facility] Absolute lymphocyte countOrd ered By: Frankie Galindo on 04-04-2023 Lymphocytes Auto (Unsp spec) [#/Vol] 1.49 10*3/uL 0.83-4.51 [facility] Basophil percentageOrdered B y: Frankie Galindo on 04-04-2023 Basophil percentage 101 mg/dL 74-106 [facility] Basophil percentage 136 mmol/L 136-145 [facility] Basophil percentage 3.9 mmol/L 3.5-5.1 [facility] Basophil percentage 103 mmol/L 98-107 [facility] Basophils (Bld) [#/Vol] 6.3 10*3/uL 4.4-11.0 [facility] Basophils (Bld) [#/Vol] 4.1 10*3/uL 2.0-7.7 [facility] Basophils/100 WBC (Bld) 1.1 % 0-1 [facility] Basophils/100 WBC (Bld) 64.4 % 47-70 [facility] Basophils/100 WBC (Bld) 3.3 % 0-5 [facility] Chloride [Moles/Vol] 103 mmol/L 98-107 [facility] Eosinophils/100 WBC (Bld) 3.3 % 0-5 [facility] Glucose [Mass/Vol] 101 mg/dL 74-106 [facility] Comment on above: Fasting Glucose resu lt from 100 to 125 mg/dL suggests IMPAIRED HOMEOSTASIS per A.D.A. criteria. Neutrophils (Bld) [#/Vol] 4.1 10*3/uL 2.0-7.7 [facility] Neutrophils/100 WBC (Bld) 64.4 % 47-70 [facility] Potassium [Moles/Vol] 3.9 mmol/L 3.5-5.1 [facility] Sodium [Moles/Vol] 136 mmol/L 136-145 [facility] WBC (Bld) [#/Vol] 6.3 10*3/uL 4.4-11.0 [facility] Blood erythrocytes count (nu mber/volume)Ordered By: Frankie Galindo on 04-04-2023 RBC (Bld) [#/Vol] 4.82 10*6/uL 4.6-6.2 [facility] Blood hemoglobin measurement (mass/volume)Ordered By: Frankie Galindo on 04-04-2023 Hemoglobin (Bld) [Mass/Vol] 15.1 g/dL 13.0-16.5 [facility] Blood lymphocytes/100 leukoc ytesOrdered By: Frankie Galindo on 04-04-2023 Lymphocytes/100 WBC (Bld) 23.6 % 19-41 [facility] Blood monocytes/100 leukocyt esOrdered By: Frankie Galindo on 04-04-2023 Monocytes/100 WBC (Bld) 6.3 % 0-10 [facility] Blood platelet mean volumeOr dered By: Frankie Galindo on 04-04-2023 Platelet mean volume (Bld) [Entitic vol] 9.3 fL 6.2-12.0 [facility] Determination of erythrocyte mean corpuscular volume (MCV)Ordered By: Frankie Galindo on 04-04-2023 MCV (RBC) [Entitic vol] 96.7 fL 80-94 [facility] Hematocrit Auto (Bld) [Volum e fraction]Ordered By: Frankie Galindo on 04-04-2023 Hematocrit (Bld) [Volume fraction] 46.6 % 40-54 [facility] Laboratory - Chemistry and C hemistry - challengeOrdered By: Frankie Galindo on 04-04-2023 CO2 [Moles/Vol] 29.0 mmol/L 21.0-32.0 [facility] Urea nitrogen/Creatinine [Mass ratio] 20.3 mg/mg 10-20 [facility] Laboratory - Hematology and Cell countsOrdered By: Frankie Galindo on 04-04-2023 Erythrocyte distribution width (RBC) [Entitic vol] 48.9 fL 35.1-43.9 [facility] Erythrocyte distribution width (RBC) [Ratio] 13.6 % 11.6-14.6 [facility] Immature granulocytes/100 WBC (Bld) 1.300 % 0.0-0.9 [facility] Comment on above: IG% - Immature Granu locytes (promyelocytes, myelocytes and metamyelocytes) > 1% indicates that a LEFT SHIFT is Present. MCH (RBC) [Entitic mass] 31.3 pg 27.0-32.0 [facility] Nucleated RBC/100 WBC (Bld) [Ratio] 0 % 0-5 [facility] MCHC Auto (RBC) [Mass/Vol]Or dered By: Frankie Galindo on 04-04-2023 MCHC (RBC) [Mass/Vol] 32.4 g/dL 32-36 [facility] No Panel InformationOrdered By: Frankie Galindo on 04-04-2023 Estimated Creatinine Clearance Calc 45.80 ml/min [facility] Estimated GFR (MDRD) Amer 71 mL/min >60 [facility] Comment on above: GFR Calc Estimated GFR (MDRD) Non-Af Amer 58 mL/min >60 [facility] Comment on above: Non- GFR Calc 31.3 pg 27.0-32.0 [facility] 13.6 % 11.6-14.6 [facility] 48.9 fl 35.1-43.9 [facility] 1.300 % 0.0-0.9 [facility] 0 % 0-5 [facility] 58 mL/min >60 [facility] 71 mL/min >60 [facility] 45.80 ml/min [facility] 20.3 RATIO 04-07 [facility] 29.0 mmol/L 21.0-32.0 [facility] Platelets bldOrdered By: Sebastien Galindo on 04-04-2023 Platelets (Bld) [#/Vol] 379 10*3/uL 150-450 [facility] Serum or plasma calcium luis urement (mass/volume)Ordered By: Frankie Galindo on 04-04-2023 Calcium [Mass/Vol] 9.7 mg/dL 8.5-10.1 [facility] Serum or plasma creatinine m easurement (mass/volume)Ordered By: Frankie Galindo on 04-04-2023 Creatinine [Mass/Vol] 1.28 mg/dL 0.70-1.30 [facility] Comment on above: The validity of the calculated GFR & GFRAA in patients over 70 years has not been determined. Clinical correlation is essential. Serum or plasma urea nitroge n measurement (mass/volume)Ordered By: Frankie Galindo on 04-04-2023 Urea nitrogen [Mass/Vol] 26 mg/dL 01-03 [facility] Thin prep Papanicolaou smear with manual screeningOrdered By: Frankie Galindo on 04-04-2023 Thin prep Papanicolaou smear with manual screening 4 10-31 [facility] Basophil percentageOrdered B y: Frankie Galindo on 04-02-2023 Basophil percentage 2.6 mg/dL 2.5-4.9 [facility] Laboratory - Chemistry and C hemistry - challengeOrdered By: Frankie Galindo on 04-02-2023 Magnesium [Mass/Vol] 2.0 mg/dL 1.6-2.6 [facility] No Panel InformationOrdered By: Frankie Galindo on 04-02-2023 2.0 mg/dL 1.6-2.6 [facility] Basophil percentageOrdered B y: Celia Toribio on 04-01-2023 Basophil percentage 6.5 g/dL 6.4-8.2 [facility] Basophil percentage 0.30 mg/dL 0.20-1.00 [facility] Bilirubin [Mass/Vol] 0.30 mg/dL 0.20-1.00 [facility] Comment on above: For patients on eltr ombopag therapy, use of Dimension [place] TBIL is not recommended. Protein [Mass/Vol] 6.5 g/dL 6.4-8.2 [facility] Laboratory - Chemistry and C hemistry - challengeOrdered By: Celia Toribio on 04-01-2023 ALP [Catalytic activity/Vol] 57 U/L 45-117 [facility] ALT [Catalytic activity/Vol] 21 U/L [facility] Globulin (S) [Mass/Vol] 3.9 g/dL 2.2-4.2 [facility] No Panel InformationOrdered By: Celia Toribio on 04-01-2023 3.9 g/dL 2.2-4.2 [facility] 57 U/L 45- [facility] 21 U/L [facility] Serum or plasma albumin luis urement (mass/volume)Ordered By: Celia Toribio on 04-01-2023 Albumin [Mass/Vol] 2.6 g/dL 3.2-5.0 [facility] Serum or plasma albumin/glob ulin mass ratioOrdered By: Celia Toribio on 04-01-2023 Albumin/Globulin [Mass ratio] 0.7 {ratio} 0.9-2.4 [facility] Thin prep Papanicolaou smear with manual screeningOrdered By: Celia Toribio on 04-01-2023 Thin prep Papanicolaou smear with manual screening 12 U/L 15-37 [facility] Absolute lymphocyte countOrd ered By: Huber Alvarado on 03-30-2023 Lymphocytes Auto (Unsp spec) [#/Vol] 0.93 10*3/uL 0.83-4.51 [facility] Bacteria identified Cx Nom ( U)Ordered By: Huber Alvarado on 03-30-2023 Culture, urine ESBL Escherichia coli [facility] Basophil percentageOrdered B y: Huber Alvarado on 03-30-2023 Basophil percentage 1.4 mmol/L 0.4-2.0 [facility] Lactate [Moles/Vol] 1.4 mmol/L 0.4-2.0 [facility] Basophil percentage 25-50 SEEN /hpf 0-5 [facility] Basophils/100 WBC (Bld) 0.7 % 0-1 [facility] Chloride [Moles/Vol] 99 mmol/L 98-107 [facility] Eosinophils/100 WBC (Bld) 0.0 % 0-5 [facility] Glucose [Mass/Vol] 104 mg/dL 74-106 [facility] Comment on above: Fasting Glucose resu lt from 100 to 125 mg/dL suggests IMPAIRED HOMEOSTASIS per A.D.A. criteria. Neutrophils (Bld) [#/Vol] 7.9 10*3/uL 2.0-7.7 [facility] Neutrophils/100 WBC (Bld) 79.2 % 47-70 [facility] Potassium [Moles/Vol] 4.0 mmol/L 3.5-5.1 [facility] Sodium [Moles/Vol] 134 mmol/L 136-145 [facility] WBC (Bld) [#/Vol] 10.0 10*3/uL 4.4-11.0 [facility] Bilirubin Test strip Ql (U)O rdered By: Huber Alvarado on 03-30-2023 Bilirubin Ql (U) Negative Negative [facility] Blood erythrocytes count (nu mber/volume)Ordered By: Huber Alvarado on 03-30-2023 RBC (Bld) [#/Vol] 4.81 10*6/uL 4.6-6.2 [facility] Blood hemoglobin measurement (mass/volume)Ordered By: Huber Alvarado on 03-30-2023 Hemoglobin (Bld) [Mass/Vol] 15.4 g/dL 13.0-16.5 [facility] Blood lymphocytes/100 leukoc ytesOrdered By: Huber Alvarado on 03-30-2023 Lymphocytes/100 WBC (Bld) 9.3 % 19-41 [facility] Blood monocytes/100 leukocyt esOrdered By: Huber Alvarado on 03-30-2023 Monocytes/100 WBC (Bld) 10.5 % 0-10 [facility] Blood platelet mean volumeOr dered By: Huber Alvarado on 03-30-2023 Platelet mean volume (Bld) [Entitic vol] 9.8 fL 6.2-12.0 [facility] Culture, urineOrdered By: Baldo Chan on 03-30-2023 Bacteria identified Cx Nom (U) ESBL Escherichia coli [facility] Bacteria identified Cx Nom (U) ESBL Escherichia coli [facility] Determination of erythrocyte mean corpuscular volume (MCV)Ordered By: Huber Alvarado on 03-30-2023 MCV (RBC) [Entitic vol] 97.5 fL 80-94 [facility] Hematocrit Auto (Bld) [Volum e fraction]Ordered By: Huber Alvarado on 03-30-2023 Hematocrit (Bld) [Volume fraction] 46.9 % 40-54 [facility] Ketones Test strip Ql (U)Ord ered By: Huber Alvarado on 03-30-2023 Ketones Ql (U) Negative Negative [facility] Laboratory - Chemistry and C hemistry - challengeOrdered By: Huber Alvarado on 03-30-2023 CO2 [Moles/Vol] 31.0 mmol/L 21.0-32.0 [facility] Urea nitrogen/Creatinine [Mass ratio] 16.0 mg/mg 10-20 [facility] Laboratory - Hematology and Cell countsOrdered By: Huber Alvarado on 03-30-2023 Erythrocyte distribution width (RBC) [Entitic vol] 50.3 fL 35.1-43.9 [facility] Erythrocyte distribution width (RBC) [Ratio] 13.9 % 11.6-14.6 [facility] Immature granulocytes/100 WBC (Bld) 0.300 % 0.0-0.9 [facility] Comment on above: IG% - Immature Granu locytes (promyelocytes, myelocytes and metamyelocytes) > 1% indicates that a LEFT SHIFT is Present. MCH (RBC) [Entitic mass] 32.0 pg 27.0-32.0 [facility] Nucleated RBC/100 WBC (Bld) [Ratio] 0 % 0-5 [facility] Laboratory - Microbiology an d Antimicrobial susceptibilityOrdered By: Huber Alvarado on 03-30-2023 Bacteria identified Cx Nom (Bld) No growth in [address] [facility] MCHC Auto (RBC) [Mass/Vol]Or dered By: Huber Alvarado on 03-30-2023 MCHC (RBC) [Mass/Vol] 32.8 g/dL 32-36 [facility] Mucus LM Ql (Urine sed)Order ed By: Huber Alvarado on 10-12-2023 Mucus Ql (Urine sed) 0 SEEN /hpf [facility] Nitrite Test strip Ql (U)Ord ered By: Huber Alvarado on 03-30-2023 Nitrite Ql (U) Negative Negative [facility] No Panel InformationOrdered By: Huber Alvarado on 03-30-2023 No growth in 5 days. [facility] Estimated GFR (MDRD) Amer 77 mL/min >60 [facility] Comment on above: GFR Calc Estimated GFR (MDRD) Non-Af Amer 64 mL/min >60 [facility] Comment on above: Non- GFR Calc Platelets bldOrdered By: Pet er Christiano on 03-30-2023 Platelets (Bld) [#/Vol] 276 10*3/uL 150-450 [facility] Protein Test strip Ql (U)Ord ered By: Huber Alvarado on 03-30-2023 Protein Ql (U) 100 mg/dl Negative [facility] Serum or plasma calcium luis urement (mass/volume)Ordered By: Huber Alvarado on 03-30-2023 Calcium [Mass/Vol] 9.8 mg/dL 8.5-10.1 [facility] Serum or plasma creatinine m easurement (mass/volume)Ordered By: Huber Alvarado on 03-30-2023 Creatinine [Mass/Vol] 1.19 mg/dL 0.70-1.30 [facility] Comment on above: The validity of the calculated GFR & GFRAA in patients over 70 years has not been determined. Clinical correlation is essential. Serum or plasma urea nitroge n measurement (mass/volume)Ordered By: Huber Alvarado on 03-30-2023 Urea nitrogen [Mass/Vol] 19 mg/dL 7-18 [facility] Squamous epithelial cells de tection in urine sediment by light microscopyOrdered By: Huber Alvarado on 03-30-2023 Epithelial cells.squamous LM Ql (Urine sed) 0-5 SEEN /hpf 0-5 [facility] Thin prep Papanicolaou smear with manual screeningOrdered By: Huber Alvarado on 03-30-2023 Thin prep Papanicolaou smear with manual screening 4 5-15 [facility] Urine blood detectionOrdered By: Huber Alvarado on 03-30-2023 RBC Ql (U) 50 /ul Negative [facility] RBC Ql (U) 0 SEEN /hpf 0-5 [facility] Urine clarityOrdered By: Beck Alvarado on 03-30-2023 Clarity (U) Sl. Cloudy Clear [facility] Urine color determinationOrd ered By: Huber Alvarado on 03-30-2023 Color (U) Yellow Yellow [facility] Urine glucose detectionOrder ed By: Huber Alvarado on 03-30-2023 Glucose Ql (U) Normal mg/dl Normal [facility] Urine leukocyte esterase det ection by dipstickOrdered By: Huber Alvarado on 03-30-2023 Leukocyte esterase Test strip Ql (U) 500 /ul Negative [facility] Urine pHOrdered By: Huber billingsley on 03-30-2023 pH (U) 6.0 [pH] 5.0 - 8.0 [facility] Urine sediment bacteria coun t by microscopy (number/high power field)Ordered By: Huber Alvarado on 03-30-2023 Bacteria LM.HPF (Urine sed) [#/Area] 3 /[HPF] None Seen [facility] Urine specific gravity measu rementOrdered By: Huber Alvarado on 03-30-2023 Specific gravity (U) [Rel density] 1.020 1.002-1.030 [facility] Urobilinogen Auto test strip Ql (U)Ordered By: Huber Alvarado on 03-30-2023 Urobilinogen Ql (U) Normal mg/dl Normal [facility] INR in Blood by Coagulation assayOrdered By: Jaden Jauregui on 02-18-2023 INR Coag (Bld) [Relative time] 0.9 {INR} [facility] Laboratory - CoagulationOrde red By: Jaden Jauregui on 02-18-2023 PT Coag (PPP) [Time] 12.4 s 11.7-14.9 [facility] CT ABD/PELVIS W/ IV CONTRAST ONLYon [...] 10/22/2022 10:33:36 PM Ordering Provider: PRIYANKA Betts [facility] ([place]) .Auto Diffon 10-22-2022 Basophil, Absolute 0.1 10 3/mcL Normal 0.0-0.2 [facility] ([place]) Comment on above: Performed By: #### A DIFF, LIP, MDW, CMP, GFR, ANEU, CBC #### [address] [address] Basophils/100 WBC (Bld) 0.8 % Normal 0.0-2.5 A [facility] ([place]) Comment on above: Performed By: #### A DIFF, LIP, MDW, CMP, GFR, ANEU, CBC #### [address] [address] Eosinophil, Absolute 0.0 10 3/mcL Normal 0.0-0.4 [facility] ([place]) Comment on above: Performed By: #### A DIFF, LIP, MDW, CMP, GFR, ANEU, CBC #### [address] [address] Eosinophils/100 WBC (Bld) 0.3 % Normal 0.0-7.0 [facility] ([place]) Comment on above: Performed By: #### A DIFF, LIP, MDW, CMP, GFR, ANEU, CBC #### [address] [address] Lymphocyte, Absolute 0.9 10 3/mcL Normal 0.8-3.9 [facility] ([place]) Comment on above: Performed By: #### A DIFF, LIP, MDW, CMP, GFR, ANEU, CBC #### [address] [address] Lymphocytes/100 WBC (Bld) 8.1 % Low 10.0-50.0 [facility] ([place]) Comment on above: Performed By: #### A DIFF, LIP, MDW, CMP, GFR, ANEU, CBC #### [address] [address] Monocyte, Absolute 0.7 10 3/mcL Normal 0.2-1.0 [facility] ([place]) Comment on above: Performed By: #### A DIFF, LIP, MDW, CMP, GFR, ANEU, CBC #### [address] [address] Monocytes/100 WBC (Bld) 6.8 % Normal 1.7-13.0 A [facility] ([place]) Comment on above: Performed By: #### A DIFF, LIP, MDW, CMP, GFR, ANEU, CBC #### [address] [address] Neutrophils/100 WBC (Bld) 84.0 % High 37.0-80.0 [facility] ([place]) Comment on above: Performed By: #### A DIFF, LIP, MDW, CMP, GFR, ANEU, CBC #### [address] [address] .GFRon 10-22-2022 GFR Non- 58 ml/min/1.73sqm Normal [facility] ([place]) Comment on above: Result Comment: GFR Population [...] LIP, MDW, CMP, GFR, ANEU, CBC #### [address] [address] GFR 71 ml/min/1.73sqm Normal [facility] ([place]) Comment on above: Result Comment: GFR Population [...] LIP, MDW, CMP, GFR, ANEU, CBC #### [place] [address] .MDWon 10-22-2022 Monocyte Distribution Width 24.33 High 0.00-20.00 [facility] ([place]) Comment on above: Result Comment: For adults in ED, MDW>20.0 may be associated with a higher risk of sepsis during the first 12hrs of hospital admission Performed By: #### A DIFF, LIP, MDW, CMP, GFR, ANEU, CBC #### [place] [address] .NEUABSon 10-22-2022 Neutrophil, Absolute 8.9 10 3/mcL High 2.9-6.2 [facility] ([place]) Comment on above: Performed By: #### A DIFF, LIP, MDW, CMP, GFR, ANEU, CBC #### [place] [address] CBCon 10-22-2022 Erythrocyte distribution width (RBC) [Ratio] 14.0 % Normal 11.5-14.5 [facility] ([place]) Comment on above: Performed By: #### A DIFF, LIP, MDW, CMP, GFR, ANEU, CBC #### [place] [address] Hematocrit (Bld) [Volume fraction] 38.9 % Low 42.0-52.0 [facility] ([place]) Comment on above: Performed By: #### A DIFF, LIP, MDW, CMP, GFR, ANEU, CBC #### [place] [address] Hgb 13.5 G/dL Low 14.0-18.0 [facility] ([place]) Comment on above: Performed By: #### A DIFF, LIP, MDW, CMP, GFR, ANEU, CBC #### [address] [address] MCH (RBC) [Entitic mass] 33.0 pg High 27.0-31.2 [facility] ([place]) Comment on above: Performed By: #### A DIFF, LIP, MDW, CMP, GFR, ANEU, CBC #### [place] [address] MCHC 34.8 G/dL Normal 31.8-35.4 [facility] ([place]) Comment on above: Performed By: #### A DIFF, LIP, MDW, CMP, GFR, ANEU, CBC #### [address] [address] MCV (RBC) [Entitic vol] 95.0 fL High 80.0-94.0 A [facility] ([place]) Comment on above: Performed By: #### A DIFF, LIP, MDW, CMP, GFR, ANEU, CBC #### [address] [address] Platelet 344 10 3/mcL Normal 130-400 [facility] ([place]) Comment on above: Performed By: #### A DIFF, LIP, MDW, CMP, GFR, ANEU, CBC #### [address] [address] Platelet mean volume (Bld) [Entitic vol] 7.1 fL Low 7.4-10.4 [facility] ([place]) Comment on above: Performed By: #### A DIFF, LIP, MDW, CMP, GFR, ANEU, CBC #### [address] [address] RBC 4.10 10 6/mcL Normal 4.04-6.13 [facility] ([place]) Comment on above: Performed By: #### A DIFF, LIP, MDW, CMP, GFR, ANEU, CBC #### [address] [address] WBC 10.6 10 3/mcL Normal 4.6-10.8 [facility] ([place]) Comment on above: Performed By: #### A DIFF, LIP, MDW, CMP, GFR, ANEU, CBC #### [address] [address] CMPon 10-22-2022 Albumin Level 2.9 G/dL Low 3.4-4.8 [facility] ([place]) Comment on above: Performed By: #### A DIFF, LIP, MDW, CMP, GFR, ANEU, CBC #### [address] [address] Albumin/Globulin [Mass ratio] 0.8 {ratio} Low 1.1-2.5 [facility] ([place]) Comment on above: Performed By: #### A DIFF, LIP, MDW, CMP, GFR, ANEU, CBC #### [address] [address] ALP [Catalytic activity/Vol] 98 U/L Normal 40-135 [facility] ([place]) Comment on above: Performed By: #### A DIFF, LIP, MDW, CMP, GFR, ANEU, CBC #### [address] [address] ALT [Catalytic activity/Vol] 46 U/L Normal 16-63 [facility] ([place]) Comment on above: Performed By: #### A DIFF, LIP, MDW, CMP, GFR, ANEU, CBC #### [address] [address] AST [Catalytic activity/Vol] 29 U/L Normal 10-40 [facility] ([place]) Comment on above: Performed By: #### A DIFF, LIP, MDW, CMP, GFR, ANEU, CBC #### [address] [address] Bili Total 0.3 mg/dL Normal 0.2-1.0 [facility] ([place]) Comment on above: Result Comment: Use of this assay is not recommended for patients undergoing treatment with eltrombopag due to the potential for falsely elevated results. Performed By: #### A DIFF, LIP, MDW, CMP, GFR, ANEU, CBC #### [address] [address] BUN/Creatinine Ratio 17 ratio Normal 7-27 [facility] ([place]) Comment on above: Performed By: #### A DIFF, LIP, MDW, CMP, GFR, ANEU, CBC #### [address] [address] Calcium [Mass/Vol] 9.2 mg/dL Normal 8.4-10.2 [facility] ([place]) Comment on above: Performed By: #### A DIFF, LIP, MDW, CMP, GFR, ANEU, CBC #### [address] [address] Chloride [Moles/Vol] 96 mmol/L Low 98-107 [facility] ([place]) Comment on above: Performed By: #### A DIFF, LIP, MDW, CMP, GFR, ANEU, CBC #### [address] [address] CO2 [Moles/Vol] 33 mmol/L High 23-31 [facility] ([place]) Comment on above: Performed By: #### A DIFF, LIP, MDW, CMP, GFR, ANEU, CBC #### [address] [address] Creatinine [Mass/Vol] 1.22 mg/dL Normal 0.70-1.30 [facility] 1928[facility] ([place]) Comment on above: Performed By: #### A DIFF, LIP, MDW, CMP, GFR, ANEU, CBC #### [address] [address] Electrolyte Balance 5.0 mEq/L Normal 4.0-15.0 [facility] ([place]) Comment on above: Performed By: #### A DIFF, LIP, MDW, CMP, GFR, ANEU, CBC #### [address] [address] Globulin 3.5 G/dL Normal [facility] ([place]) Comment on above: Performed By: #### A DIFF, LIP, MDW, CMP, GFR, ANEU, CBC #### [address] [address] Glucose [Mass/Vol] 111 mg/dL High 83-110 [facility] ([place]) Comment on above: Performed By: #### A DIFF, LIP, MDW, CMP, GFR, ANEU, CBC #### [address] [address] Potassium [Moles/Vol] 4.3 mmol/L Normal 3.5-5.1 [facility] ([place]) Comment on above: Performed By: #### A DIFF, LIP, MDW, CMP, GFR, ANEU, CBC #### [address] [address] Sodium [Moles/Vol] 134 mmol/L Low 136-145 [facility] ([place]) Comment on above: Performed By: #### A DIFF, LIP, MDW, CMP, GFR, ANEU, CBC #### [address] [address] Total Protein 6.4 G/dL Normal 6.4-8.2 [facility] ([place]) Comment on above: Performed By: #### A DIFF, LIP, MDW, CMP, GFR, ANEU, CBC #### [address] [address] Urea nitrogen [Mass/Vol] 21 mg/dL High 7-18 [facility] ([place]) Comment on above: Performed By: #### A DIFF, LIP, MDW, CMP, GFR, ANEU, CBC #### [address] [address] LABORATORYOrdered By: SYSTEM SYSTEM on 10-22-2022 Albumin [...] 10-22-2022 Lipase Level 32 U/L Normal 16-77 [facility] ([place]) Comment on above: Performed By: #### A DIFF, LIP, MDW, CMP, GFR, ANEU, CBC #### [address] [place], [place] [address] Absolute lymphocyte countOrd ered By: Dr. Jauregui on 10-21-2022 Lymphocytes Auto (Unsp spec) [#/Vol] 0.85 10*3/uL 0.83-4.51 [facility] Basophil percentageOrdered B y: Dr. Jauregui on 10-21-2022 Basophil percentage 25-50 SEEN /hpf 0-5 [facility] Basophils/100 WBC (Bld) 0.6 % 0-1 [facility] Bilirubin [Mass/Vol] 0.30 mg/dL 0.20-1.00 [facility] Comment on above: For patients on eltr ombopag therapy, use of Dimension [place] TBIL is not recommended. Chloride [Moles/Vol] 99 mmol/L 98-107 [facility] Eosinophils/100 WBC (Bld) 0.4 % 0-5 [facility] Glucose [Mass/Vol] 104 mg/dL 74-106 [facility] Comment on above: Fasting Glucose resu lt from 100 to 125 mg/dL suggests IMPAIRED HOMEOSTASIS per A.D.A. criteria. Neutrophils (Bld) [#/Vol] 8.8 10*3/uL 2.0-7.7 [facility] Neutrophils/100 WBC (Bld) 84.2 % 47-70 [facility] Potassium [Moles/Vol] 3.6 mmol/L 3.5-5.1 [facility] Protein [Mass/Vol] 7.2 g/dL 6.4-8.2 [facility] Sodium [Moles/Vol] 135 mmol/L 136-145 [facility] WBC (Bld) [#/Vol] 10.4 10*3/uL 4.4-11.0 [facility] Bilirubin Test strip Ql (U)O rdered By: Dr. Jauregui on 10-21-2022 Bilirubin Ql (U) Negative Negative [facility] Blood erythrocytes count (nu mber/volume)Ordered By: Dr. Jauregui on 10-21-2022 RBC (Bld) [#/Vol] 4.51 10*6/uL 4.6-6.2 [facility] Blood hemoglobin measurement (mass/volume)Ordered By: Dr. Jauregui on 10-21-2022 Hemoglobin (Bld) [Mass/Vol] 14.4 g/dL 13.0-16.5 [facility] Blood lymphocytes/100 leukoc ytesOrdered By: Dr. Jauregui on 10-21-2022 Lymphocytes/100 WBC (Bld) 8.2 % 19-41 [facility] Blood monocytes/100 leukocyt esOrdered By: Dr. Jauregui on 10-21-2022 Monocytes/100 WBC (Bld) 5.4 % 0-10 [facility] Blood platelet mean volumeOr dered By: Dr. Jauregui on 10-21-2022 Platelet mean volume (Bld) [Entitic vol] 8.9 fL 6.2-12.0 [facility] Culture, urineOrdered By: Joseph Jauregui on 10-21-2022 Bacteria identified Cx Nom (U) Presumptive E. coli [facility] Determination of erythrocyte mean corpuscular volume (MCV)Ordered By: Dr. Jauregui on 10-21-2022 MCV (RBC) [Entitic vol] 95.6 fL 80-94 [facility] Hematocrit Auto (Bld) [Volum e fraction]Ordered By: Dr. Jauregui on 10-21-2022 Hematocrit (Bld) [Volume fraction] 43.1 % 40-54 [facility] Ketones Test strip Ql (U)Ord ered By: Dr. Jauregui on 10-21-2022 Ketones Ql (U) Negative Negative [facility] Laboratory - Chemistry and C hemistry - challengeOrdered By: Dr. Jauregui on 10-21-2022 ALP [Catalytic activity/Vol] 84 U/L 45-117 [facility] ALT [Catalytic activity/Vol] 41 U/L 16-61 [facility] CO2 [Moles/Vol] 28.0 mmol/L 21.0-32.0 [facility] Globulin (S) [Mass/Vol] 4.2 g/dL 2.2-4.2 [facility] Lipase [Catalytic activity/Vol] 42 U/L 13-75 [facility] Comment on above: Please note:LIPASE r evised reference range effective 22. New Lipase methodology. Expected to produce lower values than the previous assay method. NEW Reference Range: 13 - 75 U/L Urea nitrogen/Creatinine [Mass ratio] 16.3 mg/mg 10-20 [facility] Laboratory - Hematology and Cell countsOrdered By: Dr. Jauregui on 10-21-2022 Erythrocyte distribution width (RBC) [Entitic vol] 45.7 fL 35.1-43.9 [facility] Erythrocyte distribution width (RBC) [Ratio] 13.0 % 11.6-14.6 [facility] Immature granulocytes/100 WBC (Bld) 1.200 % 0.0-0.9 [facility] Comment on above: IG% - Immature Granu locytes (promyelocytes, myelocytes and metamyelocytes) > 1% indicates that a LEFT SHIFT is Present. MCH (RBC) [Entitic mass] 31.9 pg 27.0-32.0 [facility] Nucleated RBC/100 WBC (Bld) [Ratio] 0 % 0-5 [facility] MCHC Auto (RBC) [Mass/Vol]Or dered By: Dr. Jauregui on 10-21-2022 MCHC (RBC) [Mass/Vol] 33.4 g/dL 32-36 [facility] Mucus LM Ql (Urine sed)Order ed By: Dr. Jauregui on 10-21-2022 Mucus Ql (Urine sed) 0 SEEN /hpf [facility] Nitrite Test strip Ql (U)Ord ered By: Dr. Jauregui on 10-21-2022 Nitrite Ql (U) Negative Negative [facility] No Panel InformationOrdered By: Dr. Jauregui on 10-21-2022 Estimated GFR (MDRD) Amer 90 mL/min >60 [facility] Comment on above: GFR Calc Estimated GFR (MDRD) Non-Af Amer 74 mL/min >60 [facility] Comment on above: Non- GFR Calc Platelets bldOrdered By: Dr. Jauregui on 10-21-2022 Platelets (Bld) [#/Vol] 339 10*3/uL 150-450 [facility] Protein Test strip Ql (U)Ord ered By: Dr. Jauregui on 10-21-2022 Protein Ql (U) 100 mg/dl Negative [facility] Serum or plasma albumin luis urement (mass/volume)Ordered By: Dr. Jauregui on 10-21-2022 Albumin [Mass/Vol] 3.0 g/dL 3.2-5.0 [facility] Serum or plasma albumin/glob ulin mass ratioOrdered By: Dr. Jauregui on 10-21-2022 Albumin/Globulin [Mass ratio] 0.7 {ratio} 0.9-2.4 [facility] Serum or plasma calcium luis urement (mass/volume)Ordered By: Dr. Jauregui on 10-21-2022 Calcium [Mass/Vol] 9.8 mg/dL 8.5-10.1 [facility] Serum or plasma creatinine m easurement (mass/volume)Ordered By: Dr. Jauregui on 10-21-2022 Creatinine [Mass/Vol] 1.04 mg/dL 0.70-1.30 [facility] Comment on above: The validity of the calculated GFR & GFRAA in patients over 70 years has not been determined. Clinical correlation is essential. Serum or plasma urea nitroge n measurement (mass/volume)Ordered By: Dr. Jauregui on 10-21-2022 Urea nitrogen [Mass/Vol] 17 mg/dL 7-18 [facility] Squamous epithelial cells de tection in urine sediment by light microscopyOrdered By: Dr. Jauregui on 10-21-2022 Epithelial cells.squamous LM Ql (Urine sed) 0-5 SEEN /hpf 0-5 [facility] Thin prep Papanicolaou smear with manual screeningOrdered By: Dr. Jauregui on 10-21-2022 Thin prep Papanicolaou smear with manual screening 20 U/L 15-37 [facility] Thin prep Papanicolaou smear with manual screening 8 5-15 [facility] Urine blood detectionOrdered By: Dr. Jauregui on 10-21-2022 RBC Ql (U) 50 /ul Negative [facility] RBC Ql (U) 0 SEEN /hpf 0-5 [facility] Urine clarityOrdered By: Dr. Jauregui on 10-21-2022 Clarity (U) Sl. Cloudy Clear [facility] Urine color determinationOrd ered By: Dr. Jauregui on 10-21-2022 Color (U) Yellow Yellow [facility] Urine glucose detectionOrder ed By: Dr. Jauregui on 10-21-2022 Glucose Ql (U) Normal mg/dl Normal [facility] Urine leukocyte esterase det ection by dipstickOrdered By: Dr. Jauregui on 10-21-2022 Leukocyte esterase Test strip Ql (U) 500 /ul Negative [facility] Urine pHOrdered By: Dr. Babs mckeon on 10-21-2022 pH (U) 6.0 [pH] 5.0 - 8.0 [facility] Urine sediment bacteria coun t by microscopy (number/high power field)Ordered By: Dr. Jauregui on 10-21-2022 Bacteria LM.HPF (Urine sed) [#/Area] 2 /[HPF] None Seen [facility] Urine specific gravity measu rementOrdered By: Dr. Jauregui on 10-21-2022 Specific gravity (U) [Rel density] 1.010 1.002-1.030 [facility] Urobilinogen Auto test strip Ql (U)Ordered By: Dr. Jauregui on 10-21-2022 Urobilinogen Ql (U) Normal mg/dl Normal [facility] No Panel InformationOrdered By: Андрей Cooley on 08-11-2022 Miscellaneous Test See comment [facility] Comment on above: TEST RESULT LIMITSCa rbamazepine(Tegretol), S 7.1 ug/mL 4.0-12.0 In conjunction with other antiepileptic drugs Therapeutic 4.0 - 8.0 Toxicity 9.0 - 12.0 Carbamazepine alone Therapeutic 8.0 - 12.0 Detection Limit = 2.0 <2.0 indicated None Detected Verified by repeat analysis TESTING PERFORMED AT [facility]. ORIGINAL REPORT ON FILE IN LAB [...] indicated None Detected ____ TESTING PERFORMED AT [facility]. ORIGINAL REPORT ON FILE IN LAB CONTAINS ADDITIONAL TEST SITE INFORMATION. Basophil percentageOrdered B y: Андрей Cooley on 06-14-2022 Bilirubin [Mass/Vol] 0.20 mg/dL 0.20-1.00 [facility] Comment on above: For patients on eltr ombopag therapy, use of Dimension [place] TBIL is not recommended. Chloride [Moles/Vol] 104 mmol/L 98-107 [facility] Cholesterol [Mass/Vol] 139 mg/dL <200 [facility] Comment on above: <200 mg/dL Desirable 200-240 mg/dL Borderline >240 mg/dL High Risk Glucose [Mass/Vol] 76 mg/dL 74-106 [facility] Potassium [Moles/Vol] 3.9 mmol/L 3.5-5.1 [facility] Protein [Mass/Vol] 6.4 g/dL 6.4-8.2 [facility] Sodium [Moles/Vol] 139 mmol/L 136-145 [facility] Triglyceride [Mass/Vol] 111 mg/dL <199 [facility] Comment on above: The drugs N-Acetylcy steine and Metamizole may falsely depress this assay.Serum Triglycerides Reference Interval Normal <150 mg/dL Borderline high 150 - 199 mg/dL High 200 - 499 mg/dL Very High > or = 500 mg/dL WBC (Bld) [#/Vol] 5.5 10*3/uL 4.4-11.0 [facility] Blood erythrocytes count (nu mber/volume)Ordered By: Андрей Cooley on 06-14-2022 RBC (Bld) [#/Vol] 4.57 10*6/uL 4.6-6.2 [facility] Blood hemoglobin measurement (mass/volume)Ordered By: Андрей Cooley on 06-14-2022 Hemoglobin (Bld) [Mass/Vol] 15.0 g/dL 13.0-16.5 [facility] Blood platelet mean volumeOr dered By: Андрей Cooley on 06-14-2022 Platelet mean volume (Bld) [Entitic vol] 10.0 fL 6.2-12.0 [facility] Determination of erythrocyte mean corpuscular volume (MCV)Ordered By: Андрей Cooley on 06-14-2022 MCV (RBC) [Entitic vol] 100.4 fL 80-94 [facility] Hematocrit Auto (Bld) [Volum e fraction]Ordered By: Андрей Cooley on 06-14-2022 Hematocrit (Bld) [Volume fraction] 45.9 % 40-54 [facility] Laboratory - Chemistry and C hemistry - challengeOrdered By: Андрей Cooley on 06-14-2022 ALP [Catalytic activity/Vol] 68 U/L 45-117 [facility] ALT [Catalytic activity/Vol] 31 U/L 16-61 [facility] CO2 [Moles/Vol] 31.0 mmol/L 21.0-32.0 [facility] Globulin (S) [Mass/Vol] 3.0 g/dL 2.2-4.2 [facility] Urea nitrogen/Creatinine [Mass ratio] 22.5 mg/mg 10-20 [facility] Laboratory - Hematology and Cell countsOrdered By: Андрей Cooley on 06-14-2022 Erythrocyte distribution width (RBC) [Entitic vol] 51.8 fL 35.1-43.9 [facility] Erythrocyte distribution width (RBC) [Ratio] 14.2 % 11.6-14.6 [facility] MCH (RBC) [Entitic mass] 32.8 pg 27.0-32.0 [facility] MCHC Auto (RBC) [Mass/Vol]Or dered By: Андрей Cooley on 06-14-2022 MCHC (RBC) [Mass/Vol] 32.7 g/dL 32-36 [facility] No Panel InformationOrdered By: Андрей Cooley on 06-14-2022 Estimated GFR (MDRD) Amer 108 mL/min >60 [facility] Comment on above: GFR Calc Estimated GFR (MDRD) Non-Af Amer 89 mL/min >60 [facility] Comment on above: Non- GFR Calc Vitamin D 25-Hydroxy 40.8 ng/mL [facility] Comment on above: Vitamin D 25(OH) Sta tus Range Deficiency <20 ng/mL (50nmol/L) Insufficiency 20 - 30 ng/mL (50 - 75 nmol/L) Sufficiency 30 - 100 ng/mL (75 - 250 nmol/L) Toxicity >100 ng/mL (>250 nmol/L) Platelets bldOrdered By: Italia Cooley on 06-14-2022 Platelets (Bld) [#/Vol] 239 10*3/uL 150-450 [facility] Serum or plasma albumin luis urement (mass/volume)Ordered By: Андрей Cooley on 06-14-2022 Albumin [Mass/Vol] 3.4 g/dL 3.2-5.0 [facility] Serum or plasma albumin/glob ulin mass ratioOrdered By: Андрей Cooley on 06-14-2022 Albumin/Globulin [Mass ratio] 1.1 {ratio} 0.9-2.4 [facility] Serum or plasma calcium luis urement (mass/volume)Ordered By: Андрей Cooley on 06-14-2022 Calcium [Mass/Vol] 9.1 mg/dL 8.5-10.1 [facility] Serum or plasma cholesterol in HDL measurement (mass/volume)Ordered By: Андрей Cooley on 06-14-2022 Cholesterol in HDL [Mass/Vol] 65 mg/dL >40 [facility] Comment on above: The drugs N-Acetylcy steine and Metamizole may falsely depress this assay. Reference Range HDL <40 mg/dL Low HDL Cholesterol HDL >or= 60 mg/dL High HDL Cholesterol Serum or plasma cholesterol in VLDL measurement (mass/volume)Ordered By: Андрей Cooley on 06-14-2022 Cholesterol in VLDL [Mass/Vol] 22 mg/dL 5-40 [facility] Serum or plasma creatinine m easurement (mass/volume)Ordered By: Андрей Cooley on 06-14-2022 Creatinine [Mass/Vol] 0.89 mg/dL 0.70-1.30 [facility] Comment on above: The validity of the calculated GFR & GFRAA in patients over 70 years has not been determined. Clinical correlation is essential. Serum or plasma low density lipoprotein (LDL) cholesterol measurement (mass/volume)Ordered By: Андрей Cooley on 06-14-2022 Cholesterol in LDL [Mass/Vol] 52 mg/dL 0-130 [facility] Serum or plasma urea nitroge n measurement (mass/volume)Ordered By: Андрей Cooley on 06-14-2022 Urea nitrogen [Mass/Vol] 20 mg/dL 7-18 [facility] Thin prep Papanicolaou smear with manual screeningOrdered By: Андрей Cooley on 06-14-2022 Thin prep Papanicolaou smear with manual screening 13 U/L 15-37 [facility] Thin prep Papanicolaou smear with manual screening 4 5-15 [facility] No Panel InformationOrdered By: Андрей Cooley on 05-13-2022 Miscellaneous Test See comment [facility] Comment on above: TEST RESULT LIMITSCa rbamazepine(Tegretol), S 6.2 ug/mL 4.0-12.0 In conjunction with other antiepileptic drugs Therapeutic 4.0 - 8.0 Toxicity 9.0 - 12.0 Carbamazepine alone Therapeutic 8.0 - 12.0 Detection Limit = 2.0 <2.0 indicated None Detected ____ TESTING PERFORMED AT [facility]. ORIGINAL REPORT ON FILE IN LAB CONTAINS ADDITIONAL TEST SITE INFORMATION. Absolute lymphocyte counton 03-15-2022 Lymphocytes Auto (Unsp spec) [#/Vol] 1.09 10*3/uL 0.83-4.51 [facility] Work Phone: Basophil percentageon 2021 Basophils/100 WBC (Bld) 0.7 % 0-1 [facility] Work Phone: Bilirubin [Mass/Vol] 0.30 mg/dL 0.20-1.00 [facility] Work Phone: Comment on above: For patients on eltr ombopag therapy, use of Dimension [place] TBIL is not recommended. Chloride [Moles/Vol] 96 mmol/L 98-107 [facility] Work Phone: Cholesterol [Mass/Vol] 137 mg/dL <200 [facility] Work Phone: Comment on above: <200 mg/dL Desirable 200-240 mg/dL Borderline >240 mg/dL High Risk Eosinophils/100 WBC (Bld) 1.0 % 0-5 [facility] Work Phone: Glucose [Mass/Vol] 84 mg/dL 74-106 [facility] Work Phone: Neutrophils (Bld) [#/Vol] 5.3 10*3/uL 2.0-7.7 [facility] Work Phone: Neutrophils/100 WBC (Bld) 74.4 % 47-70 [facility] Work Phone: [phone] Potassium [Moles/Vol] 3.5 mmol/L 3.5-5.1 [facility] Work Phone: [phone] Comment on above: Slight Hemolysis, Re sult may be falsely increased. Protein [Mass/Vol] 7.2 g/dL 6.4-8.2 [facility] Work Phone: [phone] Sodium [Moles/Vol] 133 mmol/L 136-145 [facility] Work Phone: [phone] Triglyceride [Mass/Vol] 121 mg/dL <199 [facility] Work Phone: [phone] Comment on above: The drugs N-Acetylcy steine and Metamizole may falsely depress this assay.Serum Triglycerides Reference Interval Normal <150 mg/dL Borderline high 150 - 199 mg/dL High 200 - 499 mg/dL Very High > or = 500 mg/dL WBC (Bld) [#/Vol] 7.2 10*3/uL 4.4-11.0 [facility] Work Phone: Blood erythrocytes count (nu mber/volume)on 03-15-2022 RBC (Bld) [#/Vol] 5.31 10*6/uL 4.6-6.2 [facility] Work Phone: [phone] Blood hemoglobin measurement (mass/volume)on 03-15-2022 Hemoglobin (Bld) [Mass/Vol] 17.0 g/dL 13.0-16.5 [facility] Work Phone: Blood lymphocytes/100 leukoc yteson 03-15-2022 Lymphocytes/100 WBC (Bld) 15.2 % 19-41 [facility] Work Phone: Blood monocytes/100 leukocyt eson 03-15-2022 Monocytes/100 WBC (Bld) 7.9 % 0-10 [facility] Work Phone: Blood platelet mean volumeon 03-15-2022 Platelet mean volume (Bld) [Entitic vol] 9.8 fL 6.2-12.0 [facility] Work Phone: Determination of erythrocyte mean corpuscular volume (MCV)on 03-15-2022 MCV (RBC) [Entitic vol] 93.2 fL 80-94 [facility] Work Phone: Hematocrit Auto (Bld) [Volum e fraction]on 03-15-2022 Hematocrit (Bld) [Volume fraction] 49.5 % 40-54 [facility] Work Phone: INR in Blood by Coagulation assayon 03-15-2022 INR Coag (Bld) [Relative time] 0.9 {INR} [facility] Work Phone: Laboratory - Chemistry and C hemistry - challengeon 03-15-2022 ALP [Catalytic activity/Vol] 71 U/L 45-117 [facility] Work Phone: ALT [Catalytic activity/Vol] 41 U/L 16-61 [facility] Work Phone: [phone] CO2 [Moles/Vol] 28.0 mmol/L 21.0-32.0 [facility] Work Phone: Globulin (S) [Mass/Vol] 4.1 g/dL 2.2-4.2 [facility] Work Phone: Urea nitrogen/Creatinine [Mass ratio] 21.2 mg/mg 10-20 [facility] Work Phone: Laboratory - Coagulationon 0 03-15-2022 PT Coag (PPP) [Time] 11.8 s 11.7-14.9 [facility]: Laboratory - Hematology and Cell countson 03-15-2022 Erythrocyte distribution width (RBC) [Entitic vol] 44.0 fL 35.1-43.9 [facility] Work Phone: Erythrocyte distribution width (RBC) [Ratio] 12.7 % 11.6-14.6 [facility] Work Phone: Immature granulocytes/100 WBC (Bld) 0.800 % 0.0-0.9 [facility] Work Phone: Comment on above: IG% - Immature Granu locytes (promyelocytes, myelocytes and metamyelocytes) > 1% indicates that a LEFT SHIFT is Present. MCH (RBC) [Entitic mass] 32.0 pg 27.0-32.0 [facility] Work Phone: Nucleated RBC/100 WBC (Bld) [Ratio] 0 % 0-5 [facility] Work Phone: [phone] MCHC Auto (RBC) [Mass/Vol]on 03-15-2022 MCHC (RBC) [Mass/Vol] 34.3 g/dL 32-36 [facility] Work Phone: No Panel Informationon 03-15 Carbamazepine (Tegretol) Level 7.3 ug/mL 4.0-12.0 [facility] Work Phone: [phone] Estimated GFR (MDRD) Amer 101 mL/min >60 [facility] Work Phone: [phone] Comment on above: GFR Calc Estimated GFR (MDRD) Non-Af Amer 84 mL/min >60 [facility] Work Phone: [phone] Comment on above: Non- GFR Calc Platelets bldon 03-15-2022 Platelets (Bld) [#/Vol] 327 10*3/uL 150-450 [facility] Work Phone: [phone] Serum or plasma albumin luis urement (mass/volume)on 03-15-2022 Albumin [Mass/Vol] 3.1 g/dL 3.2-5.0 [facility] Work Phone: [phone] Serum or plasma albumin/glob ulin mass ratioon 03-15-2022 Albumin/Globulin [Mass ratio] 0.8 {ratio} 0.9-2.4 [facility] Work Phone: [phone] Serum or plasma calcium luis urement (mass/volume)on 03-15-2022 Calcium [Mass/Vol] 9.1 mg/dL 8.5-10.1 [facility] Work Phone: Serum or plasma cholesterol in HDL measurement (mass/volume)on 03-15-2022 Cholesterol in HDL [Mass/Vol] 72 mg/dL >40 [facility] Work Phone: Comment on above: The drugs N-Acetylcy steine and Metamizole may falsely depress this assay. Reference Range HDL <40 mg/dL Low HDL Cholesterol HDL >or= 60 mg/dL High HDL Cholesterol Serum or plasma cholesterol in VLDL measurement (mass/volume)on 03-15-2022 Cholesterol in VLDL [Mass/Vol] 24 mg/dL 5-40 [facility] Work Phone: Serum or plasma creatinine m easurement (mass/volume)on 03-15-2022 Creatinine [Mass/Vol] 0.94 mg/dL 0.70-1.30 [facility] Work Phone: Comment on above: The validity of the calculated GFR & GFRAA in patients over 70 years has not been determined. Clinical correlation is essential. Serum or plasma low density lipoprotein (LDL) cholesterol measurement (mass/volume)on 03-15-2022 Cholesterol in LDL [Mass/Vol] 41 mg/dL 0-130 [facility] Work Phone: Serum or plasma urea nitroge n measurement (mass/volume)on 03-15-2022 Urea nitrogen [Mass/Vol] 20 mg/dL 7-18 [facility] Work Phone: Thin prep Papanicolaou smear with manual screeningon 03-15-2022 Thin prep Papanicolaou smear with manual screening 54 U/L 15-37 [facility] Work Phone: Comment on above: Slight Hemolysis, Re sult may be falsely increased. Thin prep Papanicolaou smear with manual screening 9 5-15 [facility] Work Phone: Absolute lymphocyte counton 03-02-2022 Lymphocytes Auto (Unsp spec) [#/Vol] 1.54 10*3/uL 0.83-4.51 [facility] Work Phone: Basophil percentageon 2021 Basophils/100 WBC (Bld) 0.9 % 0-1 [facility] Work Phone: Bilirubin [Mass/Vol] 0.20 mg/dL 0.20-1.00 [facility] Work Phone: Comment on above: For patients on eltr ombopag therapy, use of Dimension [place] TBIL is not recommended. Chloride [Moles/Vol] 101 mmol/L 98-107 [facility] Work Phone: Eosinophils/100 WBC (Bld) 1.0 % 0-5 [facility] Work Phone: Glucose [Mass/Vol] 98 mg/dL 74-106 [facility] Work Phone: Neutrophils (Bld) [#/Vol] 4.6 10*3/uL 2.0-7.7 [facility] Work Phone: Neutrophils/100 WBC (Bld) 67.4 % 47-70 [facility] Work Phone: Potassium [Moles/Vol] 3.8 mmol/L 3.5-5.1 [facility] Work Phone: Protein [Mass/Vol] 7.5 g/dL 6.4-8.2 [facility] Work Phone: Sodium [Moles/Vol] 138 mmol/L 136-145 [facility] Work Phone: WBC (Bld) [#/Vol] 6.8 10*3/uL 4.4-11.0 [facility] Work Phone: Blood erythrocytes count (nu mber/volume)on 03-02-2022 RBC (Bld) [#/Vol] 5.14 10*6/uL 4.6-6.2 [facility] Work Phone: Blood hemoglobin measurement (mass/volume)on 03-02-2022 Hemoglobin (Bld) [Mass/Vol] 16.3 g/dL 13.0-16.5 [facility] Work Phone: Blood lymphocytes/100 leukoc yteson 03-02-2022 Lymphocytes/100 WBC (Bld) 22.8 % 19-41 [facility] Work Phone: Blood monocytes/100 leukocyt eson 03-02-2022 Monocytes/100 WBC (Bld) 7.3 % 0-10 [facility] Work Phone: Blood platelet mean volumeon 03-02-2022 Platelet mean volume (Bld) [Entitic vol] 9.9 fL 6.2-12.0 [facility] Work Phone: Determination of erythrocyte mean corpuscular volume (MCV)on 03-02-2022 MCV (RBC) [Entitic vol] 94.9 fL 80-94 [facility] Work Phone: Hematocrit Auto (Bld) [Volum e fraction]on 03-02-2022 Hematocrit (Bld) [Volume fraction] 48.8 % 40-54 [facility] Work Phone: Laboratory - Chemistry and C hemistry - challengeon 03-02-2022 ALP [Catalytic activity/Vol] 67 U/L 45-117 [facility] Work Phone: ALT [Catalytic activity/Vol] 27 U/L 16-61 [facility] Work Phone: CO2 [Moles/Vol] 30.0 mmol/L 21.0-32.0 [facility] Work Phone: Globulin (S) [Mass/Vol] 3.7 g/dL 2.2-4.2 [facility] Work Phone: Lipase [Catalytic activity/Vol] 95 U/L 73-393 [facility] Work Phone: Urea nitrogen/Creatinine [Mass ratio] 14.8 mg/mg 10-20 [facility] Work Phone: Laboratory - Hematology and Cell countson 03-02-2022 Erythrocyte distribution width (RBC) [Entitic vol] 47.0 fL 35.1-43.9 [facility] Work Phone: Erythrocyte distribution width (RBC) [Ratio] 13.9 % 11.6-14.6 [facility] Work Phone: [phone] Immature granulocytes/100 WBC (Bld) 0.600 % 0.0-0.9 [facility] Work Phone: [phone] Comment on above: IG% - Immature Granu locytes (promyelocytes, myelocytes and metamyelocytes) > 1% indicates that a LEFT SHIFT is Present. MCH (RBC) [Entitic mass] 31.7 pg 27.0-32.0 [facility] Work Phone: [phone] Nucleated RBC/100 WBC (Bld) [Ratio] 0 % 0-5 [facility] Work Phone: [phone] MCHC Auto (RBC) [Mass/Vol]on 03-02-2022 MCHC (RBC) [Mass/Vol] 33.4 g/dL 32-36 [facility] Work Phone: No Panel Informationon 03-02 Estimated Creatinine Clearance Calc 59.81 ml/min [facility] Work Phone: [phone] Estimated GFR (MDRD) Amer 86 mL/min >60 [facility] Work Phone: [phone] Comment on above: GFR Calc Estimated GFR (MDRD) Non-Af Amer 71 mL/min >60 [facility] Work Phone: [phone] Comment on above: Non- GFR Calc Troponin I High Sensitivity 18 pg/mL 3.0-78.0 [facility] Work Phone: Comment on above: Please Note: New [place] t Units and Gender Specific Reference Ranges. For more information see Policy Stat Procedure [place] High Sensitivity Troponin (TNIH) and attachments. Platelets bldon 03-02-2022 Platelets (Bld) [#/Vol] 296 10*3/uL 150-450 [facility] Work Phone: [phone] Serum or plasma albumin luis urement (mass/volume)on 03-02-2022 Albumin [Mass/Vol] 3.8 g/dL 3.2-5.0 [facility] Work Phone: [phone] Serum or plasma albumin/glob ulin mass ratioon 03-02-2022 Albumin/Globulin [Mass ratio] 1.0 {ratio} 0.9-2.4 [facility] Work Phone: Serum or plasma calcium luis urement (mass/volume)on 03-02-2022 Calcium [Mass/Vol] 9.7 mg/dL 8.5-10.1 [facility] Work Phone: Serum or plasma creatinine m easurement (mass/volume)on 03-02-2022 Creatinine [Mass/Vol] 1.08 mg/dL 0.70-1.30 [facility] Work Phone: Comment on above: The validity of the calculated GFR & GFRAA in patients over 70 years has not been determined. Clinical correlation is essential. Serum or plasma urea nitroge n measurement (mass/volume)on 03-02-2022 Urea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 measurement (mass/volume)on 12-01-2021 Urea nitrogen [Mass/Vol] 14 mg/dL 7-18 [facility] Work Phone: Thin prep Papanicolaou smear with manual screeningon 12-01-2021 Thin prep Papanicolaou smear with manual screening 7 -15 [facility] Work Phone: Absolute lymphocyte counton 11-30-2021 Lymphocytes Auto (Unsp spec) [#/Vol] 1.13 10*3/uL 0.83-4.51 [facility] Work Phone: Basophil percentageon 2021 Basophil percentage 3.4 mg/dL 2.5-4.9 [facility] Work Phone: Basophils/100 WBC (Bld) 1.5 % 0-1 [facility] Work Phone: Chloride [Moles/Vol] 107 mmol/L 98-107 [facility] Work Phone: Eosinophils/100 WBC (Bld) 3.5 % 0-5 [facility] Work Phone: Glucose [Mass/Vol] 90 mg/dL 74-106 [facility] Work Phone: Neutrophils (Bld) [#/Vol] 6.9 10*3/uL 2.0-7.7 [facility] Work Phone: Neutrophils/100 WBC (Bld) 74.4 % 47-70 [facility] Work Phone: Potassium [Moles/Vol] 3.4 mmol/L 3.5-5.1 [facility] Work Phone: Sodium [Moles/Vol] 140 mmol/L 136-145 [facility] Work Phone: WBC (Bld) [#/Vol] 9.3 10*3/uL 4.4-11.0 [facility] Work Phone: Blood erythrocytes count (nu mber/volume)on 11-30-2021 RBC (Bld) [#/Vol] 3.21 10*6/uL 4.6-6.2 [facility] Work Phone: Blood hemoglobin measurement (mass/volume)on 11-30-2021 Hemoglobin (Bld) [Mass/Vol] 7.8 g/dL 13.0-16.5 [facility] Work Phone: Blood lymphocytes/100 leukoc yteson 11-30-2021 Lymphocytes/100 WBC (Bld) 12.2 % 19-41 [facility] Work Phone: Blood monocytes/100 leukocyt eson 11-30-2021 Monocytes/100 WBC (Bld) 7.0 % 0-10 [facility] Work Phone: Blood platelet mean volumeon 11-30-2021 Platelet mean volume (Bld) [Entitic vol] 10.8 fL 6.2-12.0 [facility] Work Phone: Blood polychromasia detectio n by light microscopyon 11-30-2021 Polychromasia LM Ql (Bld) 2+ [facility] Work Phone: Determination of erythrocyte mean corpuscular volume (MCV)on 11-30-2021 MCV (RBC) [Entitic vol] 83.8 fL 80-94 [facility] Work Phone: Hematocrit Auto (Bld) [Volum e fraction]on 11-30-2021 Hematocrit (Bld) [Volume fraction] 26.9 % 40-54 [facility] Work Phone: INR in Blood by Coagulation assayon 11-30-2021 INR Coag (Bld) [Relative time] 1.4 {INR} [facility] Work Phone: Laboratory - Chemistry and C hemistry - challengeon 11-30-2021 CO2 [Moles/Vol] 26.0 mmol/L 21.0-32.0 [facility] Work Phone: Urea nitrogen/Creatinine [Mass ratio] 12.0 mg/mg 10-20 [facility] Work Phone: [phone] Laboratory - Coagulationon 0 11-30-2021 PT Coag (PPP) [Time] 17.1 s 11.7-14.9 [facility] Work Phone: Laboratory - Hematology and Cell countson 11-30-2021 Anisocytosis Ql (Bld) 2+ [facility] Work Phone: [phone] Erythrocyte distribution width (RBC) [Entitic vol] 64.9 fL 35.1-43.9 [facility] Work Phone: [phone] Erythrocyte distribution width (RBC) [Ratio] 24.2 % 11.6-14.6 [facility] Work Phone: Immature granulocytes/100 WBC (Bld) 1.400 % 0.0-0.9 [facility] Work Phone: Comment on above: IG% - Immature Granu locytes (promyelocytes, myelocytes and metamyelocytes) > 1% indicates that a LEFT SHIFT is Present. MCH (RBC) [Entitic mass] 24.3 pg 27.0-32.0 [facility] Work Phone: Nucleated RBC/100 WBC (Bld) [Ratio] 2.7 % 0-5 [facility] Work Phone: MCHC Auto (RBC) [Mass/Vol]on 11-30-2021 MCHC (RBC) [Mass/Vol] 29.0 g/dL 32-36 [facility] Work Phone: No Panel Informationon 11-30 Estimated Creatinine Clearance Calc 70.99 ml/min [facility] Work Phone: Estimated GFR (MDRD) Amer 105 mL/min >60 [facility] Work Phone: [phone] Comment on above: GFR Calc Estimated GFR (MDRD) Non-Af Amer 87 mL/min >60 [facility] Work Phone: [phone] Comment on above: Non- GFR Calc Anti-Gliadin IgA Antibody 3 units 0-19 [facility] Work Phone: [phone] Comment on above: Negative 0 - 19 Weak Positive 20 - 30 Moderate to Strong Positive >30 Anti-Gliadin IgG Antibody 1 units 0-19 [facility] Work Phone: [phone] Comment on above: Negative 0 - 19 Weak Positive 20 - 30 Moderate to Strong Positive >30 Endomysial IgA Antibody Negative Negative [facility] Work Phone: [phone] Tissue Transglutaminase IgG Ab <2 U/mL 0-5 [facility] Work Phone: Comment on above: Negative 0 - 5 Weak Positive 6 - 9 Positive >9 Platelets bldon 11-30-2021 Platelets (Bld) [#/Vol] 305 10*3/uL 150-450 [facility] Work Phone: Serum IgA measurement (units /volume)on 11-30-2021 IgA Qn (S) 128 mg/dL 61-437 [facility] Work Phone: Comment on above: Performed at: [facility] [employer] [place] [id number] Director: Дмитрий Tran PhD, Phone: [phone] Serum or plasma calcium luis urement (mass/volume)on 11-30-2021 Calcium [Mass/Vol] 8.9 mg/dL 8.5-10.1 [facility] Work Phone: Serum or plasma creatinine m easurement (mass/volume)on 11-30-2021 Creatinine [Mass/Vol] 0.91 mg/dL 0.70-1.30 [facility] Work Phone: Comment on above: The validity of the calculated GFR & GFRAA in patients over 70 years has not been determined. Clinical correlation is essential. Serum or plasma urea nitroge n measurement (mass/volume)on 11-30-2021 Urea nitrogen [Mass/Vol] 11 mg/dL 7-18 [facility] Work Phone: Serum tissue transglutaminas e IgA antibody assay (units/volume)on 11-30-2021 tTG IgA Qn (S) <2 U/mL 0-3 [facility] Work Phone: Comment on above: Negative 0 - 3 Weak Positive 4 - 10 Positive >10 Tissue Transglutaminase (tTG) has been identified as the endomysial antigen. Studies have demonstr- ated that endomysial IgA antibodies have over 99% specificity for gluten sensitive enteropathy. Thin prep Papanicolaou smear with manual screeningon 11-30-2021 Thin prep Papanicolaou smear with manual screening 7 5-15 [facility] Work Phone: Blood platelet adequacy dete ction by light microscopyon 11-29-2021 Platelets LM Ql (Bld) ADEQUATE ADEQ [facility] Work Phone: Hypochromatic red blood cell detectionon 11-29-2021 Hypochromia Ql (Bld) 1+ [facility] Work Phone: Serum or plasma ferritin arlyn surement (mass/volume)on 11-29-2021 Ferritin [Mass/Vol] 157 ng/mL 26-388 [facility] Work Phone: Blood manual differential co mment interpretation (narrative result)on 11-28-2021 Manual differential comment Ghassan (Bld) [Interp] SCANNED [facility] Work Phone: Laboratory - Chemistry and C hemistry - challengeon 11-28-2021 Magnesium [Mass/Vol] 2.0 mg/dL 1.6-2.6 [facility] Work Phone: Macrocytes detectionon 11-28 Macrocytes Ql (Bld) RARE [facility] Work Phone: Ovalocyte detectionon 2021 Ovalocytes LM Ql (Bld) 1+ [facility] Work Phone: Thin prep Papanicolaou smear with manual screeningon 11-28-2021 Thin prep Papanicolaou smear with manual screening 1+ [facility] Work Phone: Laboratory - Chemistry and C hemistry - challengeon 11-26-2021 Cobalamin (Vitamin B12) [Mass/Vol] 403 pg/mL 211-911 [facility] Work Phone: No Panel Informationon 11-26 Troponin I High Sensitivity 13 pg/mL 3.0-78.0 [facility] Work Phone: Comment on above: Please Note: [place] t Units and Gender Specific Reference Ranges. For more information see Policy Stat Procedure [place] High Sensitivity Troponin (TNIH) and attachments. Absolute lymphocyte counton 11-25-2021 Lymphocytes Auto (Unsp spec) [#/Vol] 0.81 10*3/uL 0.83-4.51 [facility] Work Phone: Basophil percentageon 2021 Basophil percentage 0 SEEN /hpf 0-5 [facility] Work Phone: Basophils/100 WBC (Bld) 0.7 % 0-1 [facility] Work Phone: Eosinophils/100 WBC (Bld) 0.1 % 0-5 [facility] Work Phone: Neutrophils (Bld) [#/Vol] 5.8 10*3/uL 2.0-7.7 [facility] Work Phone: Neutrophils/100 WBC (Bld) 80.9 % 47-70 [facility] Work Phone: WBC (Bld) [#/Vol] 7.1 10*3/uL 4.4-11.0 [facility] Work Phone: Bilirubin [Mass/Vol] 0.20 mg/dL 0.20-1.00 [facility] Work Phone: Comment on above: For patients on eltr ombopag therapy, use of Dimension [place] TBIL is not recommended. Chloride [Moles/Vol] 101 mmol/L 98-107 [facility] Work Phone: Glucose [Mass/Vol] 113 mg/dL 74-106 [facility] Work Phone: Comment on above: Fasting Glucose resu lt from 100 to 125 mg/dL suggests IMPAIRED HOMEOSTASIS per A.D.A. criteria. Potassium [Moles/Vol] 4.2 mmol/L 3.5-5.1 [facility] Work Phone: Protein [Mass/Vol] 6.8 g/dL 6.4-8.2 [facility] Work Phone: Sodium [Moles/Vol] 133 mmol/L 136-145 [facility] Work Phone: [phone] Bilirubin Test strip Ql (U)o n 11-25-2021 Bilirubin Ql (U) Negative Negative [facility] Work Phone: Blood erythrocytes count (nu mber/volume)on 11-25-2021 RBC (Bld) [#/Vol] 2.36 10*6/uL 4.6-6.2 [facility] Work Phone: Blood hemoglobin measurement (mass/volume)on 11-25-2021 Hemoglobin (Bld) [Mass/Vol] 4.4 g/dL 13.0-16.5 [facility] Work Phone: Comment on above: CRITICAL VALUE VERIF IED. CALLED TO [id number] Kateryna Horn.RESULTS READ BACK BY SAME . Blood lymphocytes/100 leukoc yteson 11-25-2021 Lymphocytes/100 WBC (Bld) 11.4 % 19-41 [facility] Work Phone: Blood manual differential co mment interpretation (narrative result)on 11-25-2021 Manual differential comment Ghassan (Bld) [Interp] SCANNED [facility] Work Phone: Comment on above: ANEMIA NOTED Blood monocytes/100 leukocyt eson 11-25-2021 Monocytes/100 WBC (Bld) 6.3 % 0-10 [facility] Work Phone: [phone] Blood platelet mean volumeon 11-25-2021 Platelet mean volume (Bld) [Entitic vol] 10.2 fL 6.2-12.0 [facility] Work Phone: Determination of erythrocyte mean corpuscular volume (MCV)on 11-25-2021 MCV (RBC) [Entitic vol] 71.6 fL 80-94 [facility] Work Phone: [phone] Hematocrit Auto (Bld) [Volum e fraction]on 11-25-2021 Hematocrit (Bld) [Volume fraction] 16.9 % 40-54 [facility] Work Phone: [phone] Hemoglobin in reticulocytes (mass per reticulocyte)on 11-25-2021 Hemoglobin (Reticulocytes) [Entitic mass] 15.0 pg 30-35 [facility] Work Phone: Hypochromatic red blood cell detectionon 11-25-2021 Hypochromia Ql (Bld) 1+ [facility] Work Phone: [phone] INR in Blood by Coagulation assayon 11-25-2021 INR Coag (Bld) [Relative time] 5.4 {INR} [facility] Work Phone: [phone] Comment on above: CRITICAL VALUE VERIF IED. CALLED TO [id number] Kateryna Horn.RESULTS READ BACK BY SAME . Iron measurement (mass/mass) on 11-25-2021 Iron (Unsp spec) [Mass/Mass] 10 ug/dL 65-175 [facility] Work Phone: Ketones Test strip Ql (U)on 11-25-2021 Ketones Ql (U) Negative Negative [facility] Work Phone: [phone] Laboratory - Chemistry and C hemistry - challengeon 11-25-2021 ALP [Catalytic activity/Vol] 54 U/L 45-117 [facility] Work Phone: ALT [Catalytic activity/Vol] 20 U/L 16-61 [facility] Work Phone: [phone] CO2 [Moles/Vol] 23.0 mmol/L 21.0-32.0 [facility] Work Phone: [phone] Globulin (S) [Mass/Vol] 3.1 g/dL 2.2-4.2 [facility] Work Phone: Urea nitrogen/Creatinine [Mass ratio] 16.7 mg/mg 10-20 [facility] Work Phone: Laboratory - Coagulationon 0 11-25-2021 PT Coag (PPP) [Time] 49.2 s 11.7-14.9 [facility] Work Phone: Laboratory - Hematology and Cell countson 11-25-2021 Erythrocyte distribution width (RBC) [Entitic vol] 48.7 fL 35.1-43.9 [facility] Work Phone: [phone] Erythrocyte distribution width (RBC) [Ratio] 18.6 % 11.6-14.6 [facility] Work Phone: [phone] Immature granulocytes/100 WBC (Bld) 0.600 % 0.0-0.9 [facility] Work Phone: [phone] Comment on above: IG% - Immature Granu locytes (promyelocytes, myelocytes and metamyelocytes) > 1% indicates that a LEFT SHIFT is Present. MCH (RBC) [Entitic mass] 18.6 pg 27.0-32.0 [facility] Work Phone: [phone] Nucleated RBC/100 WBC (Bld) [Ratio] 0.6 % 0-5 [facility] Work Phone: Lower GI hemoglobin IA Ql (S tl)on 11-25-2021 Stool Occult Blood (LACI) Positive [facility] Work Phone: [phone] MCHC Auto (RBC) [Mass/Vol]on 11-25-2021 MCHC (RBC) [Mass/Vol] 26.0 g/dL 32-36 [facility] Work Phone: Mucus LM Ql (Urine sed)on Mucus Ql (Urine sed) 0 SEEN /hpf [facility] Work Phone: [phone] Nitrite Test strip Ql (U)on 11-25-2021 Nitrite Ql (U) Negative Negative [facility] Work Phone: No Panel Informationon 11-25 Immature Reticulocyte Fraction 25.00 % 3.00-15.90 [facility] Work Phone: [phone] Reticulocyte Count 2.10 % 0.5-1.5 [facility] Work Phone: Estimated Creatinine Clearance Calc 44.86 ml/min [facility] Work Phone: Estimated GFR (MDRD) Amer 62 mL/min >60 [facility] Work Phone: Comment on above: GFR Calc Estimated GFR (MDRD) Non-Af Amer 51 mL/min >60 [facility] Work Phone: Comment on above: Non- GFR Calc Total Iron Binding Capacity 466 ug/dL 250-450 [facility] Work Phone: Platelets bldon 11-25-2021 Platelets (Bld) [#/Vol] 398 10*3/uL 150-450 [facility] Work Phone: [phone] Protein Test strip Ql (U)on 11-25-2021 Protein Ql (U) Negative Negative [facility] Work Phone: [phone] Review by pathologiston Pathologist review Ghassan (Unsp spec) [Interp] October jj [facility] Work Phone: Pathologist review Ghassan (Unsp spec) [Interp] Reviewed [facility] Work Phone: [phone] Comment on above: Previous reported re sult: Lena gardner Edited by: RGOROMMEL on 11/26/21:1239Severe Microcytic anemia.Clinical correlation necessary.Sebastian Gonzalez M.D. 11/26/21 AMENDED REPORT 11/26/21 1239 PATH REV previously reported as: October jj Serum or plasma albumin luis urement (mass/volume)on 11-25-2021 Albumin [Mass/Vol] 3.7 g/dL 3.2-5.0 [facility] Work Phone: Serum or plasma albumin/glob ulin mass ratioon 11-25-2021 Albumin/Globulin [Mass ratio] 1.2 {ratio} 0.9-2.4 [facility] Work Phone: Serum or plasma calcium luis urement (mass/volume)on 11-25-2021 Calcium [Mass/Vol] 8.2 mg/dL 8.5-10.1 [facility] Work Phone: [phone] Serum or plasma creatinine m easurement (mass/volume)on 11-25-2021 Creatinine [Mass/Vol] 1.44 mg/dL 0.70-1.30 [facility] Work Phone: Comment on above: The validity of the calculated GFR & GFRAA in patients over 70 years has not been determined. Clinical correlation is essential. Serum or plasma ferritin arlyn surement (mass/volume)on 11-25-2021 Ferritin [Mass/Vol] 5 ng/mL 26-388 [facility] Work Phone: [phone] Serum or plasma folate measu rement (mass/volume)on 11-25-2021 Folate [Mass/Vol] 12.90 ng/mL 3.1-55.4 [facility] Work Phone: [phone] Serum or plasma iron saturat ion measurement (mass fraction)on 11-25-2021 Iron saturation [Mass fraction] 2.1 % 15.0-55.0 [facility] Work Phone: Serum or plasma urea nitroge n measurement (mass/volume)on 11-25-2021 Urea nitrogen [Mass/Vol] 24 mg/dL 7-18 [facility] Work Phone: [phone] Squamous epithelial cells de tection in urine sediment by light microscopyon 11-25-2021 Epithelial cells.squamous LM Ql (Urine sed) 0 SEEN /hpf 0-5 [facility] Work Phone: [phone] Thin prep Papanicolaou smear with manual screeningon 11-25-2021 Thin prep Papanicolaou smear with manual screening 10 U/L 15-37 [facility] Work Phone: [phone] Thin prep Papanicolaou smear with manual screening 9 5-15 [facility] Work Phone: [phone] Urine blood detectionon RBC Ql (U) 50 /ul Negative [facility] Work Phone: RBC Ql (U) 5-10 SEEN /hpf 0-5 [facility] Work Phone: Urine clarityon 11-25-2021 Clarity (U) Clear Clear [facility] Work Phone: Urine color determinationon 11-25-2021 Color (U) Straw Yellow [facility] Work Phone: Urine glucose detectionon Glucose Ql (U) Normal mg/dl Normal [facility] Work Phone: [phone] Urine leukocyte esterase det ection by dipstickon 11-25-2021 Leukocyte esterase Test strip Ql (U) Negative Negative [facility] Work Phone: Urine pHon 11-25-2021 pH (U) 7.0 [pH] 5.0 - 8.0 [facility] Work Phone: Urine sediment bacteria coun t by microscopy (number/high power field)on 11-25-2021 Bacteria LM.HPF (Urine sed) [#/Area] RARE /hpf None Seen [facility] Work Phone: Urine specific gravity measu rementon 11-25-2021 Specific gravity (U) [Rel density] 1.010 1.002-1.030 [facility] Work Phone: Urobilinogen Auto test strip Ql (U)on 11-25-2021 Urobilinogen Ql (U) Normal mg/dl Normal [facility] Work Phone: INR in Blood by Coagulation assayon 11-11-2021 INR Coag (Bld) [Relative time] 1.2 {INR} [facility] Laboratory - Coagulationon 0 11-11-2021 PT Coag (PPP) [Time] 15.1 s 11.7-14.9 [facility] Work Phone: No Panel Informationon 11-08 DLCO (ml/min/mmHg) 7.15 ml/min/mmHg [facility] DLCO/VA (ml/min/mmHg/L) 1.63 ml/min/mmHg/L [facility] TSI54-27% PRE (L/S) 0.30 L/S [facility] FEV1 PRE (L) 0.85 L [facility] FEV1/FVC PRE (%) 0.38 % [facility] FVC PRE (L) 2.23 L [facility] PEF PRE (L/S) 1.51 L/S [facility] VA (L) 4.38 L [facility] CNCOon 10-18-2021 CNCO Letter Text Letter Text Normal [facility] INR FINGERSTICK B/Oon 2021 INR Coag (Bld) [Relative time] 2.2 EXT [facility] Quality Check No [facility] Absolute lymphocyte counton 10-08-2021 Lymphocytes Auto (Unsp spec) [#/Vol] 1.26 10*3/uL 0.83-4.51 [facility] Work Phone: Basophil percentageon 2021 Basophil percentage 10-25 SEEN /hpf 0-5 [facility] Work Phone: Basophils/100 WBC (Bld) 1.3 % 0-1 [facility] Work Phone: Bilirubin [Mass/Vol] 0.30 mg/dL 0.20-1.00 [facility] Work Phone: Comment on above: For patients on eltr ombopag therapy, use of Dimension [place] TBIL is not recommended. Chloride [Moles/Vol] 105 mmol/L 98-107 [facility] Work Phone: Eosinophils/100 WBC (Bld) 0.5 % 0-5 [facility] Work Phone: Glucose [Mass/Vol] 99 mg/dL 74-106 [facility] Work Phone: Neutrophils (Bld) [#/Vol] 4.3 10*3/uL 2.0-7.7 [facility] Work Phone: Neutrophils/100 WBC (Bld) 70.4 % 47-70 [facility] Work Phone: Potassium [Moles/Vol] 3.7 mmol/L 3.5-5.1 [facility] Work Phone: Protein [Mass/Vol] 7.5 g/dL 6.4-8.2 [facility] Work Phone: Sodium [Moles/Vol] 138 mmol/L 136-145 [facility] Work Phone: WBC (Bld) [#/Vol] 6.1 10*3/uL 4.4-11.0 [facility] Work Phone: Bilirubin Test strip Ql (U)o n 10-08-2021 Bilirubin Ql (U) Negative Negative [facility] Work Phone: Blood erythrocytes count (nu mber/volume)on 10-08-2021 RBC (Bld) [#/Vol] 3.87 10*6/uL 4.6-6.2 [facility] Work Phone: Blood hemoglobin measurement (mass/volume)on 10-08-2021 Hemoglobin (Bld) [Mass/Vol] 8.3 g/dL 13.0-16.5 [facility] Work Phone: Blood lymphocytes/100 leukoc yteson 10-08-2021 Lymphocytes/100 WBC (Bld) 20.5 % 19-41 [facility] Work Phone: Blood monocytes/100 leukocyt eson 10-08-2021 Monocytes/100 WBC (Bld) 7.0 % 0-10 [facility] Work Phone: Blood platelet mean volumeon 10-08-2021 Platelet mean volume (Bld) [Entitic vol] 10.1 fL 6.2-12.0 [facility] Work Phone: Determination of erythrocyte mean corpuscular volume (MCV)on 10-08-2021 MCV (RBC) [Entitic vol] 74.7 fL 80-94 [facility] Work Phone: Hematocrit Auto (Bld) [Volum e fraction]on 10-08-2021 Hematocrit (Bld) [Volume fraction] 28.9 % 40-54 [facility] Work Phone: INR in Blood by Coagulation assayon 10-08-2021 INR Coag (Bld) [Relative time] 2.4 {INR} [facility] Work Phone: Ketones Test strip Ql (U)on 10-08-2021 Ketones Ql (U) Negative Negative [facility] Work Phone: Laboratory - Chemistry and C hemistry - challengeon 10-08-2021 ALP [Catalytic activity/Vol] 74 U/L 45-117 [facility] Work Phone: ALT [Catalytic activity/Vol] 21 U/L 16-61 [facility] Work Phone: [phone] CO2 [Moles/Vol] 30.0 mmol/L 21.0-32.0 [facility] Work Phone: Globulin (S) [Mass/Vol] 3.7 g/dL 2.2-4.2 [facility] Work Phone: [phone] Lipase [Catalytic activity/Vol] 93 U/L 73-393 [facility] Work Phone: [phone] Urea nitrogen/Creatinine [Mass ratio] 20.2 mg/mg 10-20 [facility] Work Phone: Laboratory - Coagulationon 0 10-08-2021 PT Coag (PPP) [Time] 25.7 s 11.7-14.9 [facility] Work Phone: [phone] Laboratory - Hematology and Cell countson 10-08-2021 Erythrocyte distribution width (RBC) [Entitic vol] 50.4 fL 35.1-43.9 [facility] Work Phone: [phone] Erythrocyte distribution width (RBC) [Ratio] 18.6 % 11.6-14.6 [facility] Work Phone: [phone] Immature granulocytes/100 WBC (Bld) 0.300 % 0.0-0.9 [facility] Work Phone: Comment on above: IG% - Immature Granu locytes (promyelocytes, myelocytes and metamyelocytes) > 1% indicates that a LEFT SHIFT is Present. MCH (RBC) [Entitic mass] 21.4 pg 27.0-32.0 [facility] Work Phone: [phone] Nucleated RBC/100 WBC (Bld) [Ratio] 0 % 0-5 [facility] Work Phone: [phone] MCHC Auto (RBC) [Mass/Vol]on 10-08-2021 MCHC (RBC) [Mass/Vol] 28.7 g/dL 32-36 [facility] Work Phone: [phone] Mucus LM Ql (Urine sed)on Mucus Ql (Urine sed) 0 SEEN /hpf [facility] Work Phone: [phone] Nitrite Test strip Ql (U)on 10-08-2021 Nitrite Ql (U) Positive Negative [facility] Work Phone: [phone] Panel Informationon 10-08 Estimated Creatinine Clearance Calc 68.72 ml/min [facility] Work Phone: [phone] Estimated GFR (MDRD) Amer 101 mL/min >60 [facility] Work Phone: [phone] Comment on above: GFR Calc Estimated GFR (MDRD) Non-Af Amer 84 mL/min >60 [facility] Work Phone: [phone] Comment on above: Non- GFR Calc Platelets bldon 10-08-2021 Platelets (Bld) [#/Vol] 349 10*3/uL 150-450 [facility] Work Phone: [phone] Protein Test strip Ql (U)on 10-08-2021 Protein Ql (U) 100 mg/dl Negative [facility] Work Phone: [phone] Serum or plasma albumin luis urement (mass/volume)on 10-08-2021 Albumin [Mass/Vol] 3.8 g/dL 3.2-5.0 [facility] Work Phone: [phone] Serum or plasma albumin/glob ulin mass ratioon 10-08-2021 Albumin/Globulin [Mass ratio] 1.0 {ratio} 0.9-2.4 [facility] Work Phone: Serum or plasma calcium luis urement (mass/volume)on 10-08-2021 Calcium [Mass/Vol] 9.1 mg/dL 8.5-10.1 [facility] Work Phone: Serum or plasma creatinine m easurement (mass/volume)on 10-08-2021 Creatinine [Mass/Vol] 0.94 mg/dL 0.70-1.30 [facility] Work Phone: Comment on above: The validity of the calculated GFR & GFRAA in patients over 70 years has not been determined. Clinical correlation is essential. Serum or plasma urea nitroge n measurement (mass/volume)on 10-08-2021 Urea nitrogen [Mass/Vol] 19 mg/dL 7-18 [facility] Work Phone: Squamous epithelial cells de tection in urine sediment by light microscopyon 10-08-2021 Epithelial cells.squamous LM Ql (Urine sed) 0-5 SEEN /hpf 0-5 [facility] Work Phone: Thin prep Papanicolaou smear with manual screeningon 10-08-2021 Thin prep Papanicolaou smear with manual screening 12 U/L 15-37 [facility] Work Phone: Thin prep Papanicolaou smear with manual screening 3 5-15 [facility] Work Phone: Urine blood detectionon 09-18 RBC Ql (U) 10 /ul Negative [facility] Work Phone: RBC Ql (U) 0 SEEN /hpf 0-5 [facility] Work Phone: [phone] Urine clarityon 10-08-2021 Clarity (U) Sl. Cloudy Clear [facility] Work Phone: [phone] Urine color determinationon 10-08-2021 Color (U) Yellow Yellow [facility] Work Phone: [phone] Urine glucose detectionon Glucose Ql (U) Normal mg/dl Normal [facility] Work Phone: [phone] Urine leukocyte esterase det ection by dipstickon 10-08-2021 Leukocyte esterase Test strip Ql (U) 500 /ul Negative [facility] Work Phone: Urine pHon 10-08-2021 pH (U) 6.5 [pH] 5.0 - 8.0 [facility] Work Phone: Urine sediment bacteria coun t by microscopy (number/high power field)on 10-08-2021 Bacteria LM.HPF (Urine sed) [#/Area] 3 /[HPF] None Seen [facility] Work Phone: Urine specific gravity measu rementon 10-08-2021 Specific gravity (U) [Rel density] 1.010 1.002-1.030 [facility] Work Phone: Urobilinogen Auto test strip Ql (U)on 10-08-2021 Urobilinogen Ql (U) Normal mg/dl Normal [facility] Work Phone: Absolute lymphocyte counton 09-22-2021 Lymphocytes Auto (Unsp spec) [#/Vol] 1.51 10*3/uL 0.83-4.51 [facility] Work Phone: Basophil percentageon 2021 Basophils/100 WBC (Bld) 2.1 % 0-1 [facility] Work Phone: Eosinophils/100 WBC (Bld) 5.1 % 0-5 [facility] Work Phone: Neutrophils (Bld) [#/Vol] 3.7 10*3/uL 2.0-7.7 [facility] Work Phone: Neutrophils/100 WBC (Bld) 60.6 % 47-70 [facility] Work Phone: WBC (Bld) [#/Vol] 6.1 10*3/uL 4.4-11.0 [facility] Work Phone: Blood erythrocytes count (nu mber/volume)on 09-22-2021 RBC (Bld) [#/Vol] 4.09 10*6/uL 4.6-6.2 [facility] Work Phone: Blood hemoglobin measurement (mass/volume)on 09-22-2021 Hemoglobin (Bld) [Mass/Vol] 9.1 g/dL 13.0-16.5 [facility] Work Phone: [phone] Blood lymphocytes/100 leukoc yteson 09-22-2021 Lymphocytes/100 WBC (Bld) 24.8 % 19-41 [facility] Work Phone: [phone] Blood monocytes/100 leukocyt eson 09-22-2021 Monocytes/100 WBC (Bld) 6.9 % 0-10 [facility] Work Phone: [phone] Blood platelet mean volumeon 09-22-2021 Platelet mean volume (Bld) [Entitic vol] 9.9 fL 6.2-12.0 [facility] Work Phone: [phone] Determination of erythrocyte mean corpuscular volume (MCV)on 09-22-2021 MCV (RBC) [Entitic vol] 77.5 fL 80-94 [facility] Work Phone: [phone] Hematocrit Auto (Bld) [Volum e fraction]on 09-22-2021 Hematocrit (Bld) [Volume fraction] 31.7 % 40-54 [facility] Work Phone: [phone] Laboratory - Hematology and Cell countson 09-22-2021 Erythrocyte distribution width (RBC) [Entitic vol] 56.2 fL 35.1-43.9 [facility] Work Phone: [phone] Erythrocyte distribution width (RBC) [Ratio] 19.9 % 11.6-14.6 [facility] Work Phone: [phone] Immature granulocytes/100 WBC (Bld) 0.500 % 0.0-0.9 [facility] Work Phone: [phone] Comment on above: IG% - Immature Granu locytes (promyelocytes, myelocytes and metamyelocytes) > 1% indicates that a LEFT SHIFT is Present. MCH (RBC) [Entitic mass] 22.2 pg 27.0-32.0 [facility] Work Phone: Nucleated RBC/100 WBC (Bld) [Ratio] 0 % 0-5 [facility] Work Phone: MCHC Auto (RBC) [Mass/Vol]on 09-22-2021 MCHC (RBC) [Mass/Vol] 28.7 g/dL 32-36 [facility] Work Phone: Platelets bldon 09-22-2021 Platelets (Bld) [#/Vol] 351 10*3/uL 150-450 [facility] Work Phone: CNPNon 09-21-2021 LAMINN Telephone (AGGENS1) PEDRO PABLO SIERRA ([id number]) 1950 M T Date Time Provider Department [...] Date Reviewed: 09/15/2021 Reviewed by: Anjel Braga APRN.[employer] - Fully Assessed Reason for Visit: Appointment [...] [J43.9] - COMPOUNDED PRESCRIPTION Aerosol supplies Dx:J44.1 NPI#[id number] - COMPOUNDED PRESCRIPTION NEBULIZER FOR HOME USE. [...] Auto (Unsp spec) [#/Vol] 1.19 10*3/uL 0.83-4.51 [facility] Work Phone: Basophil percentageon 2021 Basophil percentage 0-5 SEEN /hpf 0-5 [facility] Work Phone: Basophils/100 WBC (Bld) 1.6 % 0-1 [facility] Work Phone: Bilirubin [Mass/Vol] 0.30 mg/dL 0.20-1.00 [facility] Work Phone: Comment on above: For patients on eltr ombopag therapy, use of Dimension [place] TBIL is not recommended. Chloride [Moles/Vol] 104 mmol/L 98-107 [facility] Work Phone: Eosinophils/100 WBC (Bld) 1.1 % 0-5 [facility] Work Phone: Glucose [Mass/Vol] 100 mg/dL 74-106 [facility] Work Phone: Comment on above: Fasting Glucose resu lt from 100 to 125 mg/dL suggests IMPAIRED HOMEOSTASIS per A.D.A. criteria. Neutrophils (Bld) [#/Vol] 5.2 10*3/uL 2.0-7.7 [facility] Work Phone: Neutrophils/100 WBC (Bld) 73.0 % 47-70 [facility] Work Phone: Potassium [Moles/Vol] 4.2 mmol/L 3.5-5.1 [facility] Work Phone: Protein [Mass/Vol] 7.3 g/dL 6.4-8.2 [facility] Work Phone: [phone] Sodium [Moles/Vol] 136 mmol/L 136-145 [facility] Work Phone: [phone] WBC (Bld) [#/Vol] 7.1 10*3/uL 4.4-11.0 [facility] Work Phone: [phone] Bilirubin Test strip Ql (U)o n 09-17-2021 Bilirubin Ql (U) Negative Negative [facility] Work Phone: [phone] Blood erythrocytes count (nu mber/volume)on 09-17-2021 RBC (Bld) [#/Vol] 3.50 10*6/uL 4.6-6.2 [facility] Work Phone: [phone] Blood hemoglobin measurement (mass/volume)on 09-17-2021 Hemoglobin (Bld) [Mass/Vol] 7.9 g/dL 13.0-16.5 [facility] Work Phone: [phone] Blood lymphocytes/100 leukoc yteson 09-17-2021 Lymphocytes/100 WBC (Bld) 16.9 % 19-41 [facility] Work Phone: [phone] Blood monocytes/100 leukocyt eson 09-17-2021 Monocytes/100 WBC (Bld) 7.1 % 0-10 [facility] Work Phone: [phone] Blood platelet mean volumeon 09-17-2021 Platelet mean volume (Bld) [Entitic vol] 9.5 fL 6.2-12.0 [facility] Work Phone: [phone] Determination of erythrocyte mean corpuscular volume (MCV)on 09-17-2021 MCV (RBC) [Entitic vol] 75.1 fL 80-94 [facility] Work Phone: [phone] Hematocrit Auto (Bld) [Volum e fraction]on 09-17-2021 Hematocrit (Bld) [Volume fraction] 26.3 % 40-54 [facility] Work Phone: [phone] INR in Blood by Coagulation assayon 09-17-2021 INR Coag (Bld) [Relative time] 1.3 {INR} [facility] Work Phone: Ketones Test strip Ql (U)on 09-17-2021 Ketones Ql (U) Negative Negative [facility] Work Phone: [phone] Laboratory - Chemistry and C hemistry - challengeon 09-17-2021 ALP [Catalytic activity/Vol] 79 U/L 45-117 [facility] Work [phone] ALT [Catalytic activity/Vol] 36 U/L 16-61 [facility] Work Phone: [phone] CO2 [Moles/Vol] 25.0 mmol/L 21.0-32.0 [facility] Work Phone: [phone] Globulin (S) [Mass/Vol] 3.5 g/dL 2.2-4.2 [facility] Work Phone: [phone] Lipase [Catalytic activity/Vol] 102 U/L 73-393 [facility] Work Phone: [phone] Urea nitrogen/Creatinine [Mass ratio] 12.5 mg/mg 10-20 [facility] Work Phone: [phone] Laboratory - Coagulationon 0 09-17-2021 PT Coag (PPP) [Time] 15.4 s 11.7-14.9 [facility] Work Phone: Laboratory - Hematology and Cell countson 09-17-2021 Erythrocyte distribution width (RBC) [Entitic vol] 53.1 fL 35.1-43.9 [facility] Work Phone: [phone] Erythrocyte distribution width (RBC) [Ratio] 19.6 % 11.6-14.6 [facility] Work Phone: [phone] Immature granulocytes/100 WBC (Bld) 0.300 % 0.0-0.9 [facility] Work Phone: [phone] Comment on above: IG% - Immature Granu locytes (promyelocytes, myelocytes and metamyelocytes) > 1% indicates that a LEFT SHIFT is Present. MCH (RBC) [Entitic mass] 22.6 pg 27.0-32.0 [facility] Work Phone: Nucleated RBC/100 WBC (Bld) [Ratio] 0 % 0-5 [facility] Work Phone: [phone] MCHC Auto (RBC) [Mass/Vol]on 09-17-2021 MCHC (RBC) [Mass/Vol] 30.0 g/dL 32-36 [facility] Work Phone: Mucus LM Ql (Urine sed)on Mucus Ql (Urine sed) 0 SEEN /hpf [facility] Work Phone: [phone] Nitrite Test strip Ql (U)on 09-17-2021 Nitrite Ql (U) Positive Negative [facility] Work Phone: [phone] Panel Informationon 09-17 Estimated Creatinine Clearance Calc 57.68 ml/min [facility] Work Phone: [phone] Estimated GFR (MDRD) Amer 83 mL/min >60 [facility] Work Phone: [phone] Comment on above: GFR Calc Estimated GFR (MDRD) Non-Af Amer 68 mL/min >60 [facility] Work Phone: [phone] Comment on above: Non- GFR Calc Platelets bldon 09-17-2021 Platelets (Bld) [#/Vol] 342 10*3/uL 150-450 [facility] Work Phone: Protein Test strip Ql (U)on 09-17-2021 Protein Ql (U) 15 mg/dl Negative [facility] Work Phone: [phone] Serum or plasma albumin luis urement (mass/volume)on 09-17-2021 Albumin [Mass/Vol] 3.8 g/dL 3.2-5.0 [facility] Work Phone: [phone] Serum or plasma albumin/glob ulin mass ratioon 09-17-2021 Albumin/Globulin [Mass ratio] 1.1 {ratio} 0.9-2.4 [facility] Work Phone: [phone] Serum or plasma calcium luis urement (mass/volume)on 04-01-2022 Calcium [Mass/Vol] 8.7 mg/dL 8.5-10.1 [facility] Work Phone: Serum or plasma creatinine m easurement (mass/volume)on 09-17-2021 Creatinine [Mass/Vol] 1.12 mg/dL 0.70-1.30 [facility] Work Phone: Comment on above: The validity of the calculated GFR & GFRAA in patients over 70 years has not been determined. Clinical correlation is essential. Serum or plasma urea nitroge n measurement (mass/volume)on 09-17-2021 Urea nitrogen [Mass/Vol] 14 mg/dL 7-18 [facility] Work Phone: Squamous epithelial cells de tection in urine sediment by light microscopyon 09-17-2021 Epithelial cells.squamous LM Ql (Urine sed) 0-5 SEEN /hpf 0-5 [facility] Work Phone: Thin prep Papanicolaou smear with manual screeningon 09-17-2021 Thin prep Papanicolaou smear with manual screening 19 U/L 15-37 [facility] Work Phone: Thin prep Papanicolaou smear with manual screening 7 5-15 [facility] Work Phone: Urine blood detectionon 04-0 RBC Ql (U) Negative Negative [facility] Work Phone: RBC Ql (U) 0 SEEN /hpf 0-5 [facility] Work Phone: Urine clarityon 09-17-2021 Clarity (U) Clear Clear [facility] Work Phone: Urine color determinationon 09-17-2021 Color (U) Yellow Yellow [facility] Work Phone: [phone] Urine glucose detectionon Glucose Ql (U) Normal mg/dl Normal [facility] Work Phone: [phone] Urine leukocyte esterase det ection by dipstickon 09-17-2021 Leukocyte esterase Test strip Ql (U) 25 /ul Negative [facility] Work Phone: [phone] Urine pHon 09-17-2021 pH (U) 6.0 [pH] 5.0 - 8.0 [facility] Work Phone: Urine sediment bacteria coun t by microscopy (number/high power field)on 09-17-2021 Bacteria LM.HPF (Urine sed) [#/Area] 1 /[HPF] None Seen [facility] Work Phone: Urine specific gravity measu rementon 09-17-2021 Specific gravity (U) [Rel density] 1.010 1.002-1.030 [facility] Work Phone: Urobilinogen Auto test strip Ql (U)on 09-17-2021 Urobilinogen Ql (U) Normal mg/dl Normal [facility] Work Phone: PT panel Coag (PPP)on 2021 INR Coag (Bld) [Relative time] 2.1 (EXT) 2.0 - 3.0 [facility] UA DIP, URINE (POC)on 2021 BILIRUBIN UA (POCT) Negative Negative [facility] CLARITY UA (POCT) Clear [facility] COLOR UA (POCT) Yellow [facility] GLUCOSE UA (POCT) Negative Negative mg/dL [facility] HEMOGLOBIN/BLOOD UA (POCT) Trace-lysed Abnormal Negative [facility] KETONE UA (POCT) Negative Negative mg/dL [facility] LEUKOCYTES UA (POCT) Small Abnormal Negative [facility] NITRITE UA (POCT) Positive Abnormal Negative [facility] PH UA (POCT) 5.5 4.5 - 8.0 [facility] Protein Ql (U) 100 mg/dL Abnormal Negative mg/dL [facility] SPECIFIC GRAVITY UA (POCT) 1.020 1.005 - 1.030 [facility] UROBILINOGEN UA (POCT) 0.2 E.U./dL Malaika l E.U./dL [facility] Glucose Glucometer (dC) [M ass/Vol]on 08-21-2021 Glucose [Mass/Vol] 102 mg/dL 74-106 [facility] Work Phone: Comment on above: MANAGEMENT OF PATIEN T CARE PER NURSING PROTOCOL INR in Blood by Coagulation assayon 08-21-2021 INR Coag (Bld) [Relative time] 1.2 {INR} [facility] Work Phone: Laboratory - Coagulationon 0 08-21-2021 PT Coag (PPP) [Time] 14.9 s 11.7-14.9 [facility] Work Phone: Absolute lymphocyte counton 08-20-2021 Lymphocytes Auto (Unsp spec) [#/Vol] 0.77 10*3/uL 0.83-4.51 [facility] Work Phone: Basophil percentageon 2021 Basophils/100 WBC (Bld) 0.8 % 0-1 [facility] Work Phone: Bilirubin [Mass/Vol] 0.70 mg/dL 0.20-1.00 [facility] Work Phone: Comment on above: For patients on eltr ombopag therapy, use of Dimension [place] TBIL is not recommended. Chloride [Moles/Vol] 107 mmol/L 98-107 [facility] Work Phone: Eosinophils/100 WBC (Bld) 2.2 % 0-5 [facility] Work Phone: Glucose [Mass/Vol] 99 mg/dL 74-106 [facility] Work Phone: Neutrophils (Bld) [#/Vol] 4.9 10*3/uL 2.0-7.7 [facility] Work Phone: Neutrophils/100 WBC (Bld) 77.2 % 47-70 [facility] Work Phone: Potassium [Moles/Vol] 3.7 mmol/L 3.5-5.1 [facility] Work Phone: Protein [Mass/Vol] 6.2 g/dL 6.4-8.2 [facility] Work Phone: Sodium [Moles/Vol] 139 mmol/L 136-145 [facility] Work Phone: WBC (Bld) [#/Vol] 6.3 10*3/uL 4.4-11.0 [facility]: [phone] Blood erythrocytes count (nu mber/volume)on 08-20-2021 RBC (Bld) [#/Vol] 3.72 10*6/uL 4.6-6.2 [facility] Work [facility]: [phone] Blood hemoglobin measurement (mass/volume)on 08-20-2021 Hemoglobin (Bld) [Mass/Vol] 7.8 g/dL 13.0-16.5 [facility] Work Phone: [phone] Blood lymphocytes/100 leukoc yteson 08-20-2021 Lymphocytes/100 WBC (Bld) 12.2 % 19-41 [facility] Work Phone: [phone] Blood monocytes/100 leukocyt eson 08-20-2021 Monocytes/100 WBC (Bld) 6.8 % 0-10 [facility] Work Phone: [phone] Blood platelet mean volumeon 08-20-2021 Platelet mean volume (Bld) [Entitic vol] 9.7 fL 6.2-12.0 [facility] Work Phone: Determination of erythrocyte mean corpuscular volume (MCV)on 08-20-2021 MCV (RBC) [Entitic vol] 72.8 fL 80-94 [facility] Work Phone: Hematocrit Auto (Bld) [Volum e fraction]on 08-20-2021 Hematocrit (Bld) [Volume fraction] 27.1 % 40-54 [facility] Work Phone: Laboratory - Chemistry and C hemistry - challengeon 08-20-2021 ALP [Catalytic activity/Vol] 224 U/L 45-117 [facility] Work Phone: [phone] ALT [Catalytic activity/Vol] 335 U/L 16-61 [facility] Work Phone: [phone] CO2 [Moles/Vol] 27.0 mmol/L 21.0-32.0 [facility] Work Phone: Globulin (S) [Mass/Vol] 3.5 g/dL 2.2-4.2 [facility] Work Phone: [phone] Urea nitrogen/Creatinine [Mass ratio] 11.9 mg/mg 10-20 [facility] Work Phone: [phone] Laboratory - Hematology and Cell countson 08-20-2021 Erythrocyte distribution width (RBC) [Entitic vol] 50.8 fL 35.1-43.9 [facility] Work Phone: [phone] Erythrocyte distribution width (RBC) [Ratio] 19.5 % 11.6-14.6 [facility] Work Phone: [phone] Immature granulocytes/100 WBC (Bld) 0.800 % 0.0-0.9 [facility] Work Phone: [phone] Comment on above: IG% - Immature Granu locytes (promyelocytes, myelocytes and metamyelocytes) > 1% indicates that a LEFT SHIFT is Present. MCH (RBC) [Entitic mass] 21.0 pg 27.0-32.0 [facility] Work Phone: [phone] Nucleated RBC/100 WBC (Bld) [Ratio] 0 % 0-5 [facility] Work Phone: [phone] MCHC Auto (RBC) [Mass/Vol]on 08-20-2021 MCHC (RBC) [Mass/Vol] 28.8 g/dL 32-36 [facility] Work Phone: [phone] Panel Informationon 08-20 Estimated Creatinine Clearance Calc 63.96 ml/min [facility] Work Phone: [phone] Estimated GFR (MDRD) Amer 93 mL/min >60 [facility] Work Phone: [phone] Comment on above: GFR Calc Estimated GFR (MDRD) Non-Af Amer 77 mL/min >60 [facility] Work Phone: [phone] Comment on above: Non- GFR Calc Platelets bldon 08-20-2021 Platelets (Bld) [#/Vol] 409 10*3/uL 150-450 [facility] Work Phone: [phone] Serum or plasma albumin luis urement (mass/volume)on 08-20-2021 Albumin [Mass/Vol] 2.7 g/dL 3.2-5.0 [facility] Work Phone: [phone] Serum or plasma albumin/glob ulin mass ratioon 08-20-2021 Albumin/Globulin [Mass ratio] 0.8 {ratio} 0.9-2.4 [facility] Work Phone: Serum or plasma calcium luis urement (mass/volume)on 08-20-2021 Calcium [Mass/Vol] 7.9 mg/dL 8.5-10.1 [facility] Work Phone: Serum or plasma creatinine m easurement (mass/volume)on 08-20-2021 Creatinine [Mass/Vol] 1.01 mg/dL 0.70-1.30 [facility] Work Phone: Comment on above: The validity of the calculated GFR & GFRAA in patients over 70 years has not been determined. Clinical correlation is essential. Serum or plasma urea nitroge n measurement (mass/volume)on 08-20-2021 Urea nitrogen [Mass/Vol] 12 mg/dL 7-18 [facility] Work Phone: [phone] Thin prep Papanicolaou smear with manual screeningon 08-20-2021 Thin prep Papanicolaou smear with manual screening 150 U/L 15-37 [facility] Work Phone: Thin prep Papanicolaou smear with manual screening 5 5-15 [facility] Work Phone: [phone] Laboratory - Coagulationon 0 08-19-2021 aPTT Coag (Bld) [Time] 37.1 s 24.1-36.2 [facility] Work Phone: No Panel Informationon 08-19 Troponin I High Sensitivity 15 pg/mL 3.0-78.0 [facility] Work Phone: Comment on above: Please Note: New [place] t Units and Gender Specific Reference Ranges. For more information see Policy Stat Procedure [place] High Sensitivity Troponin (TNIH) and attachments. Whole blood hemoglobin A1c/t otal hemoglobin ratio (mass fraction)on 08-19-2021 HbA1c (Bld) [Mass fraction] 6.0 % 3.8-5.6 [facility] Work Phone: Comment on above: Normal < 5.7 % Predi abetic 5.7 - 6.4 % Diabetic >or= 6.5 % Please note range changes. Blood manual differential co mment interpretation (narrative result)on 08-18-2021 Manual differential comment Ghassan (Bld) [Interp] SCANNED [facility] Work Phone: Comment on above: LYMPHOPENIA NOTED Direct bilirubinon Bilirubin.direct [Mass/Vol] 0.89 mg/dL 0.00-0.30 [facility] Work Phone: Laboratory - Chemistry and C hemistry - challengeon 08-18-2021 Lipase [Catalytic activity/Vol] 134 U/L 73-393 [facility] Work Phone: Absolute lymphocyte counton 08-12-2021 Lymphocytes Auto (Unsp spec) [#/Vol] 0.44 10*3/uL 0.83-4.51 [facility] Work Phone: Basophil percentageon 2021 Basophils/100 WBC (Bld) 0.6 % 0-1 [facility] Work Phone: Bilirubin [Mass/Vol] 0.30 mg/dL 0.20-1.00 [facility] Work Phone: Comment on above: For patients on eltr ombopag therapy, use of Dimension [place] TBIL is not recommended. Chloride [Moles/Vol] 101 mmol/L 98-107 [facility] Work Phone: Eosinophils/100 WBC (Bld) 0.0 % 0-5 [facility] Work Phone: Glucose [Mass/Vol] 162 mg/dL 74-106 [facility] Work Phone: Comment on above: Fasting Glucose resu lt greater than or equal to 126 mg/dL suggests DIABETES MELLITUS per A.D.A. criteria. Neutrophils (Bld) [#/Vol] 9.7 10*3/uL 2.0-7.7 [facility] Work Phone: Neutrophils/100 WBC (Bld) 93.3 % 47-70 [facility] Work Phone: Potassium [Moles/Vol] 3.8 mmol/L 3.5-5.1 [facility] Work Phone: Protein [Mass/Vol] 8.1 g/dL 6.4-8.2 [facility] Work Phone: Sodium [Moles/Vol] 135 mmol/L 136-145 [facility] Work Phone: WBC (Bld) [#/Vol] 10.4 10*3/uL 4.4-11.0 [facility] Work Phone: Blood erythrocytes count (nu mber/volume)on 08-12-2021 RBC (Bld) [#/Vol] 4.84 10*6/uL 4.6-6.2 [facility] Work Phone: Blood hemoglobin measurement (mass/volume)on 08-12-2021 Hemoglobin (Bld) [Mass/Vol] 10.4 g/dL 13.0-16.5 [facility] Work Phone: Blood lymphocytes/100 leukoc yteson 08-12-2021 Lymphocytes/100 WBC (Bld) 4.2 % 19-41 [facility] Work Phone: Blood monocytes/100 leukocyt eson 08-12-2021 Monocytes/100 WBC (Bld) 1.4 % 0-10 [facility] Work Phone: Blood platelet mean volumeon 08-12-2021 Platelet mean volume (Bld) [Entitic vol] 10.3 fL 6.2-12.0 [facility] Work Phone: Determination of erythrocyte mean corpuscular volume (MCV)on 08-12-2021 MCV (RBC) [Entitic vol] 74.8 fL 80-94 [facility] Work Phone: Hematocrit Auto (Bld) [Volum e fraction]on 08-12-2021 Hematocrit (Bld) [Volume fraction] 36.2 % 40-54 [facility] Work Phone: INR in Blood by Coagulation assayon 08-12-2021 INR Coag (Bld) [Relative time] 2.1 {INR} [facility] Work Phone: Laboratory - Chemistry and C hemistry - challengeon 08-12-2021 ALP [Catalytic activity/Vol] 70 U/L 45-117 [facility] Work Phone: ALT [Catalytic activity/Vol] 19 U/L 16-61 [facility] Work Phone: CO2 [Moles/Vol] 26.0 mmol/L 21.0-32.0 [facility] Work Phone: Globulin (S) [Mass/Vol] 3.9 g/dL 2.2-4.2 [facility] Work Phone: Lipase [Catalytic activity/Vol] 46 U/L 73-393 [facility] Work Phone: Urea nitrogen/Creatinine [Mass ratio] 9.0 mg/mg 10-20 [facility] Work Phone: Laboratory - Coagulationon 0 08-12-2021 PT Coag (PPP) [Time] 23.1 s 11.7-14.9 [facility] Work Phone: Laboratory - Hematology and Cell countson 08-12-2021 Anisocytosis Ql (Bld) 1+ [facility] Work Phone: Erythrocyte distribution width (RBC) [Entitic vol] 50.2 fL 35.1-43.9 [facility] Work Phone: Erythrocyte distribution width (RBC) [Ratio] 18.7 % 11.6-14.6 [facility] Work Phone: Immature granulocytes/100 WBC (Bld) 0.500 % 0.0-0.9 [facility] Work Phone: Comment on above: IG% - Immature Granu locytes (promyelocytes, myelocytes and metamyelocytes) > 1% indicates that a LEFT SHIFT is Present. MCH (RBC) [Entitic mass] 21.5 pg 27.0-32.0 [facility] Work Phone: Nucleated RBC/100 WBC (Bld) [Ratio] 0 % 0-5 [facility] Work Phone: [phone] MCHC Auto (RBC) [Mass/Vol]on 08-12-2021 MCHC (RBC) [Mass/Vol] 28.7 g/dL 32-36 [facility] Work Phone: No Panel Informationon 08-12 Estimated Creatinine Clearance Calc 58.20 ml/min [facility] Work Phone: Estimated GFR (MDRD) Amer 84 mL/min >60 [facility] Work Phone: Comment on above: GFR Calc Estimated GFR (MDRD) Non-Af Amer 69 mL/min >60 [facility] Work Phone: Comment on above: Non- GFR Calc Platelets bldon 08-12-2021 Platelets (Bld) [#/Vol] 401 10*3/uL 150-450 [facility] Work Phone: Serum or plasma albumin luis urement (mass/volume)on 08-12-2021 Albumin [Mass/Vol] 4.2 g/dL 3.2-5.0 [facility] Work Phone: [phone] Serum or plasma albumin/glob ulin mass ratioon 08-12-2021 Albumin/Globulin [Mass ratio] 1.1 {ratio} 0.9-2.4 [facility] Work Phone: [phone] Serum or plasma calcium luis urement (mass/volume)on 08-12-2021 Calcium [Mass/Vol] 9.4 mg/dL 8.5-10.1 [facility] Work Phone: [phone] Serum or plasma creatinine m easurement (mass/volume)on 08-12-2021 Creatinine [Mass/Vol] 1.11 mg/dL 0.70-1.30 [facility] Work Phone: Comment on above: The validity of the calculated GFR & GFRAA in patients over 70 years has not been determined. Clinical correlation is essential. Serum or plasma urea nitroge n measurement (mass/volume)on 08-12-2021 Urea nitrogen [Mass/Vol] 10 mg/dL 7-18 [facility] Work Phone: Thin prep Papanicolaou smear with manual screeningon 08-12-2021 Thin prep Papanicolaou smear with manual screening 1+ [facility] Work Phone: Thin prep Papanicolaou smear with manual screening 15 U/L 15-37 [facility] Work Phone: Thin prep Papanicolaou smear with manual screening 8 5-15 [facility] Work Phone: CNCOon 02-11-2021 CNCO Letter Text Normal [facility] CNPNon 02-11-2021 CNPN Telephone (SPAGWO) PEDRO PABLO SIERRA ([id number]) 1950 M Date Time Provider Department 02/11/21 [...] [J43.9] - COMPOUNDED PRESCRIPTION Aerosol supplies Dx:J44.1 NPI#[id number] - ipratropium-albuterol (DUONEB) 0.5 mg-3 mg(2.5 mg [...] of acute osseous abnormality. 2. Atherosclerotic disease. Data Miner: SHANELL Transcribe Date/Time: Nov 11 2020 10:50A Dictated by : RONALD COLUNGA MD This examination was interpreted and the report reviewed and electronically signed by: RONALD COLUNGA MD on Nov 11 2020 10:53AM [facility] DIVISION OF RADIOLOGY * * [...] of acute osseous abnormality. 2. Atherosclerotic disease. Data Miner: SHANELL Transcribe Date/Time: Nov 11 2020 10:50A Dictated by : RONALD COLUNGA MD This examination was interpreted and the report reviewed and electronically signed by: RONALD COLUNGA MD on Nov 11 2020 10:53AM EST [facility] Radiology Study observation (narrative) [facility] XR Femur - left AP and Later alOrdered By: Ccf Provider on 11-11-2020 [facility] CBC and Differentialon 04-10 Abs Baso 0.10 k/uL Normal <0.11 [facility] Abs Emanuel 0.44 k/uL Normal <0.87 [facility] Abs Neut 4.50 k/uL Normal 1.45-7.50 [facility] Absolute nRBC <0.01 Normal <0.01 [facility] Basophils/100 WBC (Bld) 1.4 % Normal [facility] DTYPE Auto Diff Normal [facility] Eosinophils (Bld) [#/Vol] 0.06 10*3/uL Normal <0.46 [facility] Eosinophils/100 WBC (Bld) 0.9 % Normal [facility] Erythrocyte distribution width (RBC) [Ratio] 21.0 % High 11.5-15.0 [facility] Hematocrit (Bld) [Volume fraction] 39.7 % Normal 39.0-51.0 [facility] Hemoglobin (Bld) [Mass/Vol] 11.3 g/dL Low 13.0-17.0 [facility] Lymphocytes (Bld) [#/Vol] 1.81 10*3/uL Normal 1.00-4.00 [facility] Lymphocytes/100 WBC (Bld) 26.2 % Normal [facility] MCH (RBC) [Entitic mass] 21.6 pG Low 26.0-34.0 [facility] MCHC (RBC) [Mass/Vol] 28.5 g/dL Low 30.5-36.0 [facility] MCV (RBC) [Entitic vol] 76.1 fL Low 80.0-100.0 [facility] Monocytes/100 WBC (Bld) 6.4 % Normal [facility] Neutrophils/100 WBC (Bld) 65.1 % Normal [facility] NRBCs 0.0 /100 WBC Normal 0 [facility] Platelet mean volume (Bld) [Entitic vol] 9.9 fL Normal 9.0-12.7 [facility] Platelets (Bld) [#/Vol] 302 10*3/uL Normal 150-400 [facility] RBC (Bld) [#/Vol] 5.22 10*6/uL Normal 4.20-6.00 [facility] WBC (Bld) [#/Vol] 6.91 10*3/uL Normal 3.70-11.[address] [facility] [address] BRAIN WO IVCONon 04-10-20 CT BRAIN WO IVCON * * *Final Report* * * DATE OF EXAM: Apr 10 2020 3:59PM [facility] 0504 - CT BRAIN WO [...] base and imaged soft tissues are unremarkable. Net Lead Developer (topogram) images: No additional findings. IMPRESSION: NO CT EVIDENCE OF ACUTE INTRACRANIAL PROCESS. Data Miner: SHANELL Transcribe Date/Time: Apr 10 2020 4:01P Dictated by : REBECCA BRYAN MD This examination was interpreted and the report reviewed and electronically signed by: REBECCA BRYAN MD on Apr 10 2020 4:04PM EST [id number] Normal [facility] Comp Metabolic Panelon 04-10 Albumin [Mass/Vol] 5.2 g/dL High 3.9-4.9 [facility] ALP [Catalytic activity/Vol] 65 U/L Normal 38-113 [facility] ALT [Catalytic activity/Vol] 19 U/L Normal 10-54 [facility] Anion gap [Moles/Vol] 10 mmol/L Normal 9-18 [facility] AST [Catalytic activity/Vol] 17 U/L Normal 14-40 [facility] Bilirubin [Mass/Vol] mg/dL Low 0.2-1.3 [facility] Calcium [Mass/Vol] 9.8 mg/dL Normal 8.5-10.2 [facility] Chloride [Moles/Vol] 99 mmol/L Normal 97-105 [facility] CO2 [Moles/Vol] 30 mmol/L Normal 22-30 [facility] Creatinine [Mass/Vol] 1.05 mg/dL Normal 0.73-1.22 [facility] eGFR- Amer. >60 Normal [facility] GFR/1.73 sq M predicted among non-blacks MDRD (S/P/Bld) [Vol rate/Area] mL/min/{1.73_m2} Normal [facility] Comment on above: Result Comment: eGFR (Estimated [...] GFR. Glucose [Mass/Vol] 106 mg/dL High 74-99 [facility] Comment on above: Result Comment: The [place] Diabetes Association (ADA) provides guidance for cutoff [...] Standards of Medical Care in Diabetes 2016, [place] [employer] Association. Diabetes Care. 2016.39(Suppl 1). Potassium [Moles/Vol] 3.7 mmol/L Normal 3.7-5.1 [facility] Protein [Mass/Vol] 7.6 g/dL Normal 6.3-8.0 [facility] Sodium [Moles/Vol] 139 mmol/L Normal 136-144 [facility] Urea nitrogen [Mass/Vol] 17 mg/dL Normal 9-24 [facility] ED NOTEon 04-10-2020 ED NOTE HNO ID: [id number] Author: Delaney NessRn) SEYMOUR Cortes Service: ? [...] ED in no acute distress with family. [facility] ED NOTE HNO ID: [id number] Author: Maddi NessRn) SEYMOUR Giles Service: ? Author Type: Registered Nurse Type: ED Notes Filed: 04/10/2020 4:08 PM Note Text: Patient to XR and CT. [facility] ED NOTE HNO ID: [id number] Author: Evelia (Medic) Shanelle Rios Service: ? Author Type: Naturopathic Oncology Provider and Legal Activity Adjudicator Type: ED Notes Filed: 04/10/2020 2:36 PM Note Text: BP was high in dr office. Sent pt down to be seen in ER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 10-25 [facility] Comment on above: Performed By: #### C BC, PT, BMP ####[place] [phone] CASE MANAGEMon 10-12-2019 CASE MANAGEM HNO ID: [id number] Author: Carly Hutchison) SEYMOUR Man Service: Case Management Author Type: Registered Nurse Type: Care Mgt Progress Note Filed: 10/12/2019 12:39 PM Note Text: CARE MANAGEMENT PROGRESS NOTE SERVICE DATE: 10/12/2019 SERVICE TIME: 1230 LOS: 4 days Needs Prior to Discharge: To Be Determined Clinicals faxed to [facility] SIGNATURE: Carly Man RN,BSN PATIENT NAME: Pedro Pablo Sierra DATE: October 12, 2019 TIME: 12:38 PM PAGER/CONTACT #: [phone] [facility] CASE MANAGEM HNO ID: [id number] Author: Carly Hutchison) Donovan RN Service: Case [...] 12, 2019 TIME: 10:14 AM PAGER/CONTACT #: [phone] Normal [facility] CBCon 10-12-2019 Erythrocyte distribution width (RBC) [Ratio] 16.0 % High 11.5-15.0 [facility] Comment on above: Performed By: #### C BC, PT, BMP ####[place] [phone] Hematocrit (Bld) [Volume fraction] 29.3 % Low 39.0-51.0 [facility] Comment on above: Performed By: #### C LARRY, PT, BMP ####[place] [phone] Hemoglobin (Bld) [Mass/Vol] 9.7 g/dL Low 13.0-17.0 [facility] Comment on above: Performed By: #### C BC, PT, BMP ####[place] [phone] MCH (RBC) [Entitic mass] 30.3 pG Normal 26.0-34.0 [facility] Comment on above: Performed By: #### C BC, PT, BMP ####[place] [phone] MCHC (RBC) [Mass/Vol] 33.1 g/dL Normal 30.5-36.0 [facility] Comment on above: Performed By: #### C BC, PT, BMP ####[address] [phone] MCV (RBC) [Entitic vol] 91.6 fL Normal 80.0-100.0 [facility] Comment on above: Performed By: #### C BC, PT, BMP ####[address] [phone] Platelet mean volume (Bld) [Entitic vol] 10.2 fL Normal 9.0-12.7 [facility] Comment on above: Performed By: #### C BC, PT, BMP ####[place] [phone] Platelets (Bld) [#/Vol] 173 10*3/uL Normal 150-400 [facility] Comment on above: Performed By: #### C BC, PT, BMP ####[place] [phone] RBC (Bld) [#/Vol] 3.20 10*6/uL Low 4.20-6.00 [facility] Comment on above: Performed By: #### C BC, PT, BMP ####[place] [phone] WBC (Bld) [#/Vol] 5.98 10*3/uL Normal 3.70-11.00 [facility] Comment on above: Performed By: #### C BC, PT, BMP ####[place] [phone] NURSING PROGon 10-12-2019 NURSING PROG HNO ID: [id number] Author: Daphney (Rn) SEYMOUR Baron Service: Nursing Author Type: Registered Nurse Type: Nursing Progress Note Filed: 10/12/2019 4:25 PM Note Text: Nursing Progress Note Patient Name: Pedro Pablo Sierra Patient Location: [facility]/ __ Daily Note: 0900: Pt up to chair with 2 assist and walker. Pt states left leg is painful, but able to bear weight. Pt does not want to be discharged at this time, PT/OT recommending skilled, pt refusing and wanting home care around the clock. Pt requesting robitussin for cough, given at 0841 per order. 1130: Pt assisted to bathroom with deputy director of nursing and walker. Pt was able to ambulate from bathroom to bed using walker with standby assist. 1610: Incision to left groin oozing serosang drainage. Gown saturated and needed to be changed. Abd and paper tape applied to cover and collect drainage. Pt c/o pain to left groin, 01/26. Medicated with 10mg po oxycodone. This note was completed by: Daphney Baron RN [facility] PROGRESSon 10-12-2019 PROGRESS HNO ID: [id number] Author: Elly (Binu Brown Service: Vascular Surgery [...] patient (fl,oh) 10/08/19 1645 pneumatic compression stockings (wi,oh) VTE Prophylaxis: on AC ALLERGIES No Known [...] w/ rest pain and is s/p L [employer] EA w/ bovine patch, L RADHA and EIA thrombectomy, L CI and EI stenting 10/07 c/b thrombosis s/p : EIA to [employer] bypass graft w. Ringed PTFE 10/09. Plan: [...] CRISPIN stenting on 10/23, UC, CAD previous MN, DM, HTN, HLD, COPD Overall Course: 63 [...] and weekends, please contact the General Surgery Instructional Services Specialist pager, [phone] Normal [facility] Protimeon 10-12-2019 PT Coag (PPP) [Time] 15.6 s High 9.7-13.0 [facility] Comment on above: Performed By: #### C BC, PT, BMP ####[facility] [place], [place] [phone] PT Coag (PPP) [Time] 1.5 s High 0.9-1.3 [facility] Comment on above: Result Comment: Teri min K Antagonist (VKA) Therapeutic Range: INR 2 to 3 (Target INR of 2.5) Note: For patients treated with VKA drugs, such as warfarin, the [place] [employer] 2012 Guideline recommends [...] Performed By: #### C LARRY, PT, BMP ####[facility] [place], [place] [phone] ANES POSTPROC EVALon 020 ANES POSTPROC EVAL HNO ID: [id number] Author: Cassie Zavala Service: ? Author Type: [...] October 11, 2019 TIME: 7:41 AM CSN: [id number] Normal [facility] Basic Metabolic Panlon 10-10 Anion gap [Moles/Vol] 9 mmol/L Normal 9-18 [facility] Comment on above: Performed By: #### C LARRY, BMP, MG1, PHOS ####[facility] [place], [place] [phone] Calcium [Mass/Vol] 7.7 mg/dL Low 8.5-10.5 [facility] Comment on above: Performed By: #### C BC, BMP, MG1, PHOS ####[phone] Chloride [Moles/Vol] 101 mmol/L Normal 98-110 [facility] Comment on above: Performed By: #### C BC, BMP, MG1, PHOS ####[place] [phone] CO2 [Moles/Vol] 26 mmol/L Normal 23-32 [facility] Comment on above: Performed By: #### C BC, BMP, MG1, PHOS ####[place] [phone] Creatinine [Mass/Vol] 0.63 mg/dL Low 0.70-1.40 [facility] Comment on above: Performed By: #### C BC, BMP, MG1, PHOS ####[place] [phone] eGFR- Amer. >60 Normal >60 [facility] Comment on above: Performed By: #### C BC, BMP, MG1, PHOS ####[place] [phone] GFR/1.73 sq M predicted among non-blacks MDRD (S/P/Bld) [Vol rate/Area] mL/min/{1.73_m2} Normal >60 [facility] Comment on above: Performed By: #### C BC, BMP, MG1, PHOS ####[place] [phone] Glucose [Mass/Vol] 107 mg/dL High 65-100 [facility] Comment on above: Performed By: #### C BC, BMP, MG1, PHOS ####[place] [phone] Potassium [Moles/Vol] 3.9 mmol/L Normal 3.5-5.0 [facility] Comment on above: Performed By: #### C BC, BMP, MG1, PHOS ####[facility] [place], [place] [phone] Sodium [Moles/Vol] 136 mmol/L Normal 135-146 [facility] Comment on above: Performed By: #### C BC, BMP, MG1, PHOS ####[place] [id number] [place], [place] [phone] Urea nitrogen [Mass/Vol] 8 mg/dL Low 10-25 [facility] Comment on above: Performed By: #### C BC, BMP, MG1, PHOS ####[place] [phone] [place], [place] [phone] CASE MGT INIT ASSESon 2019 CASE MGT INIT [facility] HNO ID: [id number] Author: Bri Hutchison) SEYMOUR Swann Service: Case Management Author Type: Registered Nurse Type: Care Mgt Initial Assessment Filed: 10/11/2019 2:43 PM Note Text: CARE MANAGEMENT PROGRESS NOTE SERVICE DATE: 10/11/2019 SERVICE TIME: 2:38 PM LOS: 3 days [place] of Choice Given: Yes Level of Care Discussed: Home Care Financial Disclosure Provided: Yes Financial Disclosure Comments: discussed Needs Prior to Discharge: To Be Determined;Home Care Order CM discussed with pt discharge planning. pt has his home set up for his needs with elevator and refusing rehab at this time due to Covid 19 risks. Pt [facility] with [facility] for nurse visit and prefers to continue. CM made referral via ascripts, pt will need F2F for PT/OT/SN at d/c. CM flagged weekend CM staff for potential d/c this weekend and will need AVS faxed at d/c to [phone]. CM to follow as needed. SIGNATURE: Bri Swann RN,BSN PATIENT NAME: Pedro Pablo Sierra DATE: October 11, 2019 TIME: 2:38 PM PAGER/CONTACT #: [phone] Normal [facility] CBCon 10-11-2019 Erythrocyte distribution width (RBC) [Ratio] 15.8 % High 11.5-15.0 [facility] Comment on above: Performed By: #### C BC, BMP, MG1, PHOS ####[place] [phone] Hematocrit (Bld) [Volume fraction] 27.2 % Low 39.0-51.0 [facility] Comment on above: Performed By: #### C BC, BMP, MG1, PHOS ####[place] [phone] Hemoglobin (Bld) [Mass/Vol] 8.9 g/dL Low 13.0-17.0 [facility] Comment on above: Performed By: #### C BC, BMP, MG1, PHOS ####[place] [phone] MCH (RBC) [Entitic mass] 29.4 pG Normal 26.0-34.0 [facility] Comment on above: Performed By: #### C BC, BMP, MG1, PHOS ####[place] [phone] MCHC (RBC) [Mass/Vol] 32.7 g/dL Normal 30.5-36.0 [facility] Comment on above: Performed By: #### C BC, BMP, MG1, PHOS ####[place] [phone] MCV (RBC) [Entitic vol] 89.8 fL Normal 80.0-100.0 [facility] Comment on above: Performed By: #### C BC, BMP, MG1, PHOS ####[place] [phone] Platelet mean volume (Bld) [Entitic vol] 9.9 fL Normal 9.0-12.7 [facility] Comment on above: Performed By: #### C BC, BMP, MG1, PHOS ####[place] [phone] Platelets (Bld) [#/Vol] 140 10*3/uL Low 150-400 [facility] Comment on above: Performed By: #### C BC, BMP, MG1, PHOS ####[place] [phone] [place] [phone] RBC (Bld) [#/Vol] 3.03 10*6/uL Low 4.20-6.00 [facility] Comment on above: Performed By: #### C BC, BMP, MG1, PHOS ####[place] [phone] [place] [phone] WBC (Bld) [#/Vol] 5.78 10*3/uL Normal 3.70-11.00 [facility] Comment on above: Performed By: #### C BC, BMP, MG1, PHOS ####[place] [phone] Magnesiumon 10-11-2019 Magnesium [Mass/Vol] 2.0 mg/dL Normal 1.7-2.6 [facility] Comment on above: Performed By: #### C BC, BMP, MG1, PHOS ####[place] [phone] NURSING PROGon 10-11-2019 NURSING PROG HNO ID: [id number] Author: Briana (Rn) SEYMOUR Hardy Service: ? Author Type: Registered Nurse Type: Nursing Progress Note Filed: 10/11/2019 2:37 PM Note Text: Nursing Progress Note Patient Name: Pedro Pablo Sierra Patient Location: [id number] 245- __ Daily Note: 0700. Bedside report received from weight shifter RN. Patient is resting comfortably in bed [...] care of patient. 1430. Patient transferred to [facility] via bed on portable O2. All belongings and chart sent with patient. This note was completed by: Briana Hardy RN [facility] PROGRESSon 10-11-2019 PROGRESS HNO ID: [id number] Author: Noman Fish MD Service: Vascular Surgery [...] CRISPIN stenting on 10/23, UC, CAD previous MN, DM, HTN, HLD, COPD Overall Course: 63 year old male with acute onset of BLE pain. Taken to OR for initiation of thrombolysis thru LCIA/TORITO Procedure/Surgeries: 1. Aortogram with bilateral ileofemoral runoff via left brachial artery 2. Left leg angiogram, 3rd order 3. Placement of lysis catheter from distal aorta to left SFA, 20cm treatment zone [facility] 07/02/2014 Thrombectomy Airway Difficulty: NA OR Course: [...] TIME: 7:24 AM PAGER/CONTACT #: See Below [phone] For questions Monday through Monday 6am to 6pm please page Red Team [phone] For questions during nights (6pm - 6am) and weekends, please contact the General Surgery Instructional Services Specialist pager, [phone] [facility] PROGRESS HNO ID: [id number] Author: Rashawn Huntley Service: Critical Care Author [...] CURRENT MEDICATIONS: Medications reviewed. Please refer to Personal for list of inpatient medications. Current Facility-Administered [...] INTRAVENOUS q 2 H PRN Elly (Res) rTudy-[place] 25 mcg at 10/11/19 0648 - hyoscyamine [...] tab(s) (PLAVIX) 75 mg ORAL DAILY Roman (Cafeteria Cashier) Heinly 75 mg at 10/10/19 0817 - polyethylene glycol 3350 17 g packet (MIRALAX, GLYCOLAX) 17 g ORAL DAILY PRN Elly (Res) [place] - docusate sodium 100 mg cap(s) (COLACE) 100 mg ORAL BID Elly (Res) Chum[place]ova-Jennifer 100 mg at 10/10/192202 - budesonide 0.25 mg/2 mL 0.25 mg (PULMICORT) 0.25 mg INHALATION BID Elly (Res) [place] 0.25 mg at 10/10/192046 And - ipratropium-albuterol 3 mL nebulizer solution (DUONEB) 3 mL INHALATION QID Elly (Res) [place] 3 mL at 10/10/192046 - NaCl 0.9% [...] hospitalization are listed below. Plese refer to [facility] for a full listing of cultures obtained during this hospitalization. ? N/A DIAGNOSTIC TESTS: The following diagnostic tests/findings were reviewed: ? Most recent labs and imaging results. MOST RECENT CXR FINDINGS: Bibasilar atelectasis. OPERATIVE PROCEDURE(S): Date of surgery: 10/08/19 Procedure: Left common [employer] endarterectomy with bovine path Left profundoplasty Left iliac stenting X4 (I-Cast X2, Jessica X2) Multiple angiograms with angioplasty Surgeon: Dr. May Date of surgery: 10/10/19 Procedure: Left EIA to [employer] bypass with 7mm ringed PTFE end to end proximally to the previously placed bovine patch end to side distally. Completion angiogram Retrograde open RADHA angioplasty with 8 x 80 mustang balloon. Open thrombectomy L iliac artery by leg incision. Surgeon: Dr. 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 May on 10/08/19. She is admitted to SICU post-operatively for neurovascular checks and close hemodynamic monitoring. Developed L [employer] occlusion POD2 and taken back to OR on 10/10/19 for left groin hematoma evacuation, left EIA to [employer] PTFE bypass, left liac thrombectomy. Transferred to [...] -Tubes: Clark -Prophylaxis: SCDs -Dispo: Transfer to [facility] Medication and Non-Pharmacologic VTE Prophylaxis/Anticoagul ants Anticoagulant AND Antiplatelet Medications (From admission, onward) Start Dose Route Frequency Ordered Stop 10/10/19 0900 clopidogrel 75 mg tab(s) (PLAVIX) 75 mg ORAL DAILY 10/09/19 1043 -- 10/08/19 1700 activity - mobilize patient ([place], [place]) 10/08/19 1645 pneumatic compression stockings ([place], [place]) VTE Prophylaxis: Contraindicated elevated risk of bleeding To be seen and discussed on rounds with SICU staff: Dr. Huntley ICU Checklist --------- --- VTE Prophylaxis: SIGNATURE: Misael Jeter MD PATIENT NAME: Pedro Pablo Sierra DATE: October 11, 2019 TIME: 6:40 AM PAGER/CONTACT #: [phone] [facility] STAFF PHYSICIAN NOTE OF PERSONAL INVOLVEMENT [...] HTN GERD ? Procedure/Surgeon 10/08/19 S/P L [employer] endarterectomy with bovine path, profundoplasty and iliac [...] DO 11:08 AM October 11, 2019 Normal [facility] Phosphoruson 10-11-2019 Phosphate [Mass/Vol] 1.9 mg/dL Low 2.5-4.5 [facility] Comment on above: Performed By: #### C BC, BMP, MG1, PHOS ####[place] [address] [place], [place] [phone] Protimeon 10-11-2019 PT Coag (PPP) [Time] 10.9 s Normal 9.7-13.0 [facility] Comment on above: Performed By: #### P T ####[place] [id number] [place], [place] [phone] PT Coag (PPP) [Time] 1.0 s Normal 0.9-1.3 [facility] Comment on above: Result Comment: Teri min K Antagonist (VKA) Therapeutic Range: INR 2 to 3 (Target INR of 2.5) Note: For patients treated with VKA drugs, such as warfarin, the [place] [employer] 2012 Guideline recommends [...] Chest 2012, 141:7S-47S Gio KENNY et al. [facility] 2017, 70: 252-289 Performed By: #### P T ####[place] [id number] [place], [place] [phone] THERAPY NTon 10-11-2019 THERAPY NT HNO ID: [id number] Author: Gini (Pt) Eugenia Melvin Service: Physical Therapy Author Type: Physical Therapist Type: Therapy (PT/OT/Speech/Resp) Filed: 10/11/2019 10:43 AM Note Text: Physical Therapy Treatment SERVICE DATE: 10/11/2019 SERVICE TIME: 0935 to 1020 ROOM: [place] [address] Recommended Discharge Disposition: Home PT Anticipated Discharge [...] Diagnosis: Reduced mobility-other Interventions Provided: Therapeutic Activity (74768);Therapeutic Exercise (85830);Gait Training (39165) Therapeutic Exercise (95137) Treatment Minutes: 15 1 unit Skilled Intervention(s): Instruction in therapeutic exercise supine, very gentle with Daisha GOOD. Edu on rationale of exercises. Therapeutic Activity (63014) Treatment Minutes: 20 1 unit Skilled Intervention(s): Instructed patient in supine to sit pushing with upper extremities to sit up Instructed patient in supine to and from sit pushing with upper extremities to sit up Instruction in sit to stand technique with proper hand placement and body positioning at edge of bed/chair Gait Training (04084) Treatment Minutes: 10 1 unit Skilled Intervention(s): Instruction in sequencing, gait pattern and Instruction in correction of gait deviations Total Timed Code Treatment Minutes: 45 Total Treatment Time (minutes): 45 SUBJECTIVE: Current Hospital Course: Chart reviewed and no significant medical updates relevant to therapy were noted Reason for Physical Therapy Consult : PVD s/p L LE redo [employer] endarterectomy, L profundoplasty, iliac stenting on 10/08/19 Relevant Past Medical History: S/p L femoral endarterectomy/aoroili ac stenting Patient Report: My Left leg is incredibly sore right now, moving is going to have to be slow. (And it is.) Home Environment Patient Lives With: Self/Alone Assistance 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 Entry To Home: Stairs;Other: See Comment(stair lift) [...] DATE: October 11, 2019 TIME: 10:40 AM [facility] THERAPY NT HNO ID: [id number] Author: Caitlin Thomas Service: Occupational Therapy Author Type: Occupational Therapist Type: Therapy (PT/OT/Speech/Resp) Filed: 10/11/2019 6:48 AM Note Text: OCCUPATIONAL THERAPY MISSED VISIT SERVICE DATE: 10/11/2019 SERVICE TIME: 0647 to 0647 ROOM: [place] [address] Attempted Treatment. Patient not seen due to Incomplete Orders. Pt is currently on bedrest. Please update activity orders when medically appropriate for participation in Occupational Therapy treatment and out of bed mobility. Thank you. SIGNATURE: Caitlin Thomas OTR/L PATIENT NAME: Pedro Pablo Sierra DATE: October 11, 2019 TIME: 6:47 AM Normal [facility] ABG Complete Eval FOR SEFERINO Kauffman 10-10-2019 Base Excess 1 mmol/L Normal [facility] Comment on above: Result Comment: -3 t o 3 Performed By: #### A BGRTC ####[facility] [place], [place] [phone] Calcium [Mass/Vol] 1.29 mmol/L Normal 1.15-1.35 [facility] Comment on above: Performed By: #### A BGRTC ####[place] [phone] Carboxyhemoglobin,Art 1.0 % Normal <2.0 [facility] Comment on above: Performed By: #### A BGRTC ####[place] [phone] Chloride, Whole Bld FOR WEST USE ONLY 105 mmol/L Normal 98-107 [facility] Comment on above: Performed By: #### A BGRTC ####[place] [phone] CO2 [Moles/Vol] 27 mmol/L Normal 22.0-28.0 [facility] Comment on above: Performed By: #### A BGRTC ####[place] [phone] Glucose [Mass/Vol] 132 mg/dL High 65-100 [facility] Comment on above: Performed By: #### A BGRTC ####[place] [phone] HCO3 (Bld) [Moles/Vol] 26 mmol/L Normal 22-26 [facility] Comment on above: Performed By: #### A BGRTC ####[place] [phone] Hematocrit (Bld) [Volume fraction] 26.3 % Low 42.0-52.0 [facility] Comment on above: Performed By: #### A BGRTC ####[place] [phone] Hemoglobin (Bld) [Mass/Vol] 8.5 g/dL Low 14-18 [facility] Comment on above: Performed By: #### A BGRTC ####[place] [phone] Lactate [Moles/Vol] 1.5 mmol/L Normal 0.4-2.0 [facility] Comment on above: Performed By: #### A BGRTC ####[place] [phone] Methemoglobin 1.4 % Normal 0.4-1.5 [facility] Comment on above: Performed By: #### A BGRTC ####[place] [phone] O2 Administered 21.0 Normal [facility] Comment on above: Performed By: #### A BGRTC ####[place] [phone] Oxygen (Bld) [Partial pressure] 136 mm Hg High 80-100 [facility] Comment on above: Performed By: #### A BGRTC ####[place] [phone] Oxygen (Bld) [Partial pressure] 99 % High 90-98 [facility] Comment on above: Performed By: #### A BGRTC ####[place] [phone] Oxyhemoglobin, Art. 96 % Normal 94-100 [facility] Comment on above: Performed By: #### A BGRTC ####[place] [phone] pCO2 46 mm Hg Normal 35-48 [facility] Comment on above: Performed By: #### A BGRTC ####[place] [phone] pH (Bld) 7.37 [pH] Normal 7.35-7.45 [facility] Comment on above: Performed By: #### A BGRTC ####[phone] PO2FI FOR WEST USE ONLY 648 mmHG High 400-500 F [facility] Comment on above: Performed By: #### A BGRTC ####[place] [phone] Potassium [Moles/Vol] 3.9 mmol/L Normal 3.5-5.0 [facility] Comment on above: Performed By: #### A BGRTC ####[place] [phone] Sodium [Moles/Vol] 137 mmol/L Normal 135-145 [facility] Comment on above: Performed By: #### A BGRTC ####[place] [phone] Base Excess 2 mmol/L Normal [facility] Comment on above: Result Comment: -3 t o 3 Performed By: #### A BGRTC ####[place] [phone] Calcium [Mass/Vol] 1.09 mmol/L Low 1.15-1.35 [facility] Comment on above: Performed By: #### A BGRTC ####[place] [phone] Carboxyhemoglobin,Art 1.3 % Normal <2.0 [facility] Comment on above: Performed By: #### A BGRTC ####[place] [phone] Chloride, Whole Bld FOR WEST USE ONLY 106 mmol/L Normal 98-107 [facility] Comment on above: Performed By: #### A BGRTC ####[place] [phone] CO2 [Moles/Vol] 28 mmol/L Normal 22.0-28.0 [facility] Comment on above: Performed By: #### A BGRTC ####[place] [phone] Glucose [Mass/Vol] 129 mg/dL High 65-100 [facility] Comment on above: Performed By: #### A BGRTC ####[place] [phone] HCO3 (Bld) [Moles/Vol] 27 mmol/L High 22-26 [facility] Comment on above: Performed By: #### A BGRTC ####[place] [phone] Hematocrit (Bld) [Volume fraction] 24.6 % Low 42.0-52.0 [facility] Comment on above: Performed By: #### A BGRTC ####[place] [phone] Hemoglobin (Bld) [Mass/Vol] 7.9 g/dL Low 14-18 [facility] Comment on above: Performed By: #### A BGRTC ####[place] [phone] Lactate [Moles/Vol] 1.1 mmol/L Normal 0.4-2.0 [facility] Comment on above: Performed By: #### A BGRTC ####[place] [phone] Methemoglobin 1.2 % Normal 0.4-1.5 [facility] Comment on above: Performed By: #### A BGRTC ####[place] [phone] O2 Administered 21.0 Normal [facility] Comment on above: Performed By: #### A BGRTC ####[place] [phone] Oxygen (Bld) [Partial pressure] 164 mm Hg High 80-100 [facility] Comment on above: Performed By: #### A BGRTC ####[place] [phone] Oxygen (Bld) [Partial pressure] 99 % High 90-98 [facility] Comment on above: Performed By: #### A BGRTC ####[place] [phone] Oxyhemoglobin, Art. 97 % Normal 94-100 [facility] Comment on above: Performed By: #### A BGRTC ####[place] [phone] pCO2 44 mm Hg Normal 35-48 [facility] Comment on above: Performed By: #### A BGRTC ####[facility] [place] [phone] pH (Bld) 7.40 [pH] Normal 7.35-7.45 [facility] Comment on above: Performed By: #### A BGRTC ####[facility] [place] [phone] PO2FI FOR WEST USE ONLY 781 mmHG High 400-500 F [facility] Comment on above: Performed By: #### A BGRTC ####[facility] [place] [phone] Potassium [Moles/Vol] 3.6 mmol/L Normal 3.5-5.0 [facility] Comment on above: Performed By: #### A BGRTC ####[place] [phone] [place] [phone] Sodium [Moles/Vol] 137 mmol/L Normal 135-145 [facility] Comment on above: Performed By: #### A BGRTC ####[facility] [place] [phone] ALLIED HEALTHon 10-10-2019 ALLIED HEALTH HNO ID: [id number] Author: William Renee (Rt) Service: Radiology Author Type: Legal Activity Adjudicator Type: Allied Health Filed: 10/10/2019 6:31 AM [...] RT Víctor October 10, 2019 6:31 AM [facility] ANES PRE-OPon 10-10-2019 ANES PRE-OP HNO ID: [id number] Author: Joey Sequeira Service: ? Author Type: [...] Hypertension (+) PVD (peripheral vascular disease) ([facility]) (+) s/p left femoral endarterectomy/aortoil iac stenting 10/08/2019 (now with L [employer] occlusion) PULMONARY (+) COPD (chronic obstructive pulmonary disease) ([facility]) (+) PJ (obstructive sleep apnea) ANESTHESIA (+) PJ (obstructive sleep apnea) NEURO-PSYCH (+) Headache GI (+) GERD (gastroesophageal reflux disease) Other (+) Anemia due to acute blood loss (Hgb 7.4 this AM; will order 2 units PRBCs) (+) Lupus anticoagulant disorder ([facility]) I - PHYSICAL EVALUATION [...] (iso-osmotic) 100 mL (ANCEF) 2 g INTRAVENOUS Instructional Services Specialist to OR - NaCl 0.9% iv infusion [...] movements. - COMPOUNDED PRESCRIPTION Aerosol supplies Dx:J44.1 NPI#[id number] - ipratropium-albuterol (DUONEB) 0.5 mg-3 mg(2.5 mg [...] October 10, 2019 TIME: 8:21 AM CSN: [id number] Normal [facility] APTTon 10-10-2019 aPTT Coag (Bld) [Time] 25.4 s Normal 23.0-32.4 [facility] Comment on above: Result Comment: Unfr [...] laboratory APTT reagent in use throughout the [facility]. Performed By: #### C BCDIF, PTT, FIBCT, PT ####[facility] [place], [place] [phone] aPTT Coag (Bld) [Time] 126.3 s High 23.0-32.4 [facility] Comment on above: Result Comment: Unfr [...] laboratory APTT reagent in use throughout the [facility]. Called to and read back by: Landry Quintana RN [place] [facility]/10[facility]19 Royce Mccormick Performed By: #### C BCDIF, BMP, MG1, PHOS, PTT, PT ####[facility] [place], [place] [phone] aPTT Coag (Bld) [Time] 44.1 s High 23.0-32.4 [facility] Comment on above: Result Comment: Unfr [...] laboratory APTT reagent in use throughout the [facility]. Performed By: #### P TT ####[place] [phone] Basic Metabolic Panlon 10-09 Anion gap [Moles/Vol] 11 mmol/L Normal 9-18 [facility] Comment on above: Performed By: #### C BCDIF, BMP, MG1, PHOS, PTT, PT ####[place] [phone] Calcium [Mass/Vol] 8.0 mg/dL Low 8.5-10.5 [facility] Comment on above: Performed By: #### C BCDIF, BMP, MG1, PHOS, PTT, PT ####[place] [phone] Chloride [Moles/Vol] 103 mmol/L Normal 98-110 [facility] Comment on above: Performed By: #### C BCDIF, BMP, MG1, PHOS, PTT, PT ####[place] [phone] CO2 [Moles/Vol] 24 mmol/L Normal 23-32 [facility] Comment on above: Performed By: #### C BCDIF, BMP, MG1, PHOS, PTT, PT ####[place] [phone] Creatinine [Mass/Vol] 0.68 mg/dL Low 0.70-1.40 [facility] Comment on above: Performed By: #### C BCDIF, BMP, MG1, PHOS, PTT, PT ####[place] [phone] eGFR- Amer. >60 Normal >60 [facility] Comment on above: Performed By: #### C BCDIF, BMP, MG1, PHOS, PTT, PT ####[place] [phone] GFR/1.73 sq M predicted among non-blacks MDRD (S/P/Bld) [Vol rate/Area] mL/min/{1.73_m2} Normal >60 [facility] Comment on above: Performed By: #### C BCDIF, BMP, MG1, PHOS, PTT, PT ####[place] [phone] Glucose [Mass/Vol] 127 mg/dL High 65-100 [facility] Comment on above: Performed By: #### C BCDIF, BMP, MG1, PHOS, PTT, PT ####[place] [phone] Potassium [Moles/Vol] 4.3 mmol/L Normal 3.5-5.0 [facility] Comment on above: Performed By: #### C BCDIF, BMP, MG1, PHOS, PTT, PT ####[place] [phone] Sodium [Moles/Vol] 138 mmol/L Normal 135-146 [facility] Comment on above: Performed By: #### C BCDIF, BMP, MG1, PHOS, PTT, PT ####[place] [phone] Urea nitrogen [Mass/Vol] 9 mg/dL Low 10-25 [facility] Comment on above: Performed By: #### C BCDIF, BMP, MG1, PHOS, PTT, PT ####[place] [phone] Anion gap [Moles/Vol] 8 mmol/L Low 9-18 [facility] Comment on above: Performed By: #### C BC, BMP, MG1, PHOS ####[place] [phone] Calcium [Mass/Vol] 7.9 mg/dL Low 8.5-10.5 [facility] Comment on above: Performed By: #### C BC, BMP, MG1, PHOS ####[place] [phone] Chloride [Moles/Vol] 101 mmol/L Normal 98-110 [facility] Comment on above: Performed By: #### C BC, BMP, MG1, PHOS ####[place] [phone] CO2 [Moles/Vol] 27 mmol/L Normal 23-32 [facility] Comment on above: Performed By: #### C BC, BMP, MG1, PHOS ####[place] [phone] Creatinine [Mass/Vol] 0.69 mg/dL Low 0.70-1.40 [facility] Comment on above: Performed By: #### C BC, BMP, MG1, PHOS ####[place] [phone] eGFR- Amer. >60 Normal >60 [facility] Comment on above: Performed By: #### C BC, BMP, MG1, PHOS ####[place] [phone] GFR/1.73 sq M predicted among non-blacks MDRD (S/P/Bld) [Vol rate/Area] mL/min/{1.73_m2} Normal >60 [facility] Comment on above: Performed By: #### C BC, BMP, MG1, PHOS ####[place] [phone] Glucose [Mass/Vol] 107 mg/dL High 65-100 [facility] Comment on above: Performed By: #### C BC, BMP, MG1, PHOS ####[place] [phone] Potassium [Moles/Vol] 3.8 mmol/L Normal 3.5-5.0 [facility] Comment on above: Performed By: #### C BC, BMP, MG1, PHOS ####[place] [phone] Sodium [Moles/Vol] 136 mmol/L Normal 135-146 [facility] Comment on above: Performed By: #### C BC, BMP, MG1, PHOS ####[phone] Urea nitrogen [Mass/Vol] 11 mg/dL Normal 10-25 [facility] Comment on above: Performed By: #### C BC, BMP, MG1, PHOS ####[phone] CASE MANAGEMon 10-10-2019 CASE MANAGEM HNO ID: [id number] Author: Bri (Rn) SEYMOUR Swann Service: Case [...] 10, 2019 TIME: 4:23 PM PAGER/CONTACT #: [phone] Normal [facility] CBCon 10-10-2019 Erythrocyte distribution width (RBC) [Ratio] 16.0 % High 11.5-15.0 [facility] Comment on above: Performed By: #### C BC, BMP, MG1, PHOS ####[place] [phone] Hematocrit (Bld) [Volume fraction] 23.2 % Low 39.0-51.0 [facility] Comment on above: Performed By: #### C BC, BMP, MG1, PHOS ####[place] [phone] [place] [phone] Hemoglobin (Bld) [Mass/Vol] 7.5 g/dL Low 13.0-17.0 [facility] Comment on above: Performed By: #### C BC, BMP, MG1, PHOS ####[place] [phone] MCH (RBC) [Entitic mass] 30.1 pG Normal 26.0-34.0 [facility] Comment on above: Performed By: #### C BC, BMP, MG1, PHOS ####[place] [phone] MCHC (RBC) [Mass/Vol] 32.3 g/dL Normal 30.5-36.0 [facility] Comment on above: Performed By: #### C BC, BMP, MG1, PHOS ####[place] [phone] MCV (RBC) [Entitic vol] 93.2 fL Normal 80.0-100.0 [facility] Comment on above: Performed By: #### C BC, BMP, MG1, PHOS ####[place] [phone] Platelet mean volume (Bld) [Entitic vol] 9.8 fL Normal 9.0-12.7 [facility] Comment on above: Performed By: #### C BC, BMP, MG1, PHOS ####[place] [phone] Platelets (Bld) [#/Vol] 180 10*3/uL Normal 150-400 [facility] Comment on above: Performed By: #### C BC, BMP, MG1, PHOS ####[place] [phone] RBC (Bld) [#/Vol] 2.49 10*6/uL Low 4.20-6.00 [facility] Comment on above: Performed By: #### C BC, BMP, MG1, PHOS ####[place] [phone] WBC (Bld) [#/Vol] 6.64 10*3/uL Normal 3.70-11.00 [facility] Comment on above: Performed By: #### C BC, BMP, MG1, PHOS ####[place] [phone] CBC and Differentialon 10-09 Abs Baso 0.03 k/uL Normal <0.11 [facility] Comment on above: Performed By: #### C BCDIF, PTT, FIBCT, PT ####[address]10 Abs Emanuel 0.69 k/uL Normal <0.87 [facility] Comment on above: Performed By: #### C BCDIF, PTT, FIBCT, PT ####[place] [phone] Abs Neut 5.56 k/uL Normal 1.45-7.50 [facility] Comment on above: Performed By: #### C BCDIF, PTT, FIBCT, PT ####[address]7110 Basophils/100 WBC (Bld) 0.4 % Normal [facility] Comment on above: Performed By: #### C BCDIF, PTT, FIBCT, PT ####[address]7110 Eosinophils (Bld) [#/Vol] 10*3/uL Normal <0.46 [facility] Comment on above: Performed By: #### C BCDIF, PTT, FIBCT, PT ####[address]7110 Eosinophils/100 WBC (Bld) 0.3 % Normal [facility] Comment on above: Performed By: #### C BCDIF, PTT, FIBCT, PT ####[place] [phone] Erythrocyte distribution width (RBC) [Ratio] 16.9 % High 11.5-15.0 [facility] Comment on above: Performed By: #### C BCDIF, PTT, FIBCT, PT ####[phone] Hematocrit (Bld) [Volume fraction] 21.7 % Low 39.0-51.0 [facility] Comment on above: Performed By: #### C BCDIF, PTT, FIBCT, PT ####[place] [phone] Hemoglobin (Bld) [Mass/Vol] 7.1 g/dL Low 13.0-17.0 [facility] Comment on above: Performed By: #### C BCDIF, PTT, FIBCT, PT ####[place] [phone] Lymphocytes (Bld) [#/Vol] 1.03 10*3/uL Normal 1.00-4.00 [facility] Comment on above: Performed By: #### C BCDIF, PTT, FIBCT, PT ####[place] [phone] Lymphocytes/100 WBC (Bld) 14.1 % Normal [facility] Comment on above: Performed By: #### C BCDIF, PTT, FIBCT, PT ####[place] [phone] MCH (RBC) [Entitic mass] 29.5 pG Normal 26.0-34.0 [facility] Comment on above: Performed By: #### C BCDIF, PTT, FIBCT, PT ####[place] [phone] MCHC (RBC) [Mass/Vol] 32.7 g/dL Normal 30.5-36.0 [facility] Comment on above: Performed By: #### C BCDIF, PTT, FIBCT, PT ####[place] [phone] MCV (RBC) [Entitic vol] 90.0 fL Normal 80.0-100.0 [facility] Comment on above: Performed By: #### C BCDIF, PTT, FIBCT, PT ####[address] [phone] Monocytes/100 WBC (Bld) 9.4 % Normal [facility] Comment on above: Performed By: #### C BCDIF, PTT, FIBCT, PT ####[place] [phone] Neutrophils/100 WBC (Bld) 75.8 % Normal [facility] Comment on above: Performed By: #### C BCDIF, PTT, FIBCT, PT ####[place] [phone] Platelet mean volume (Bld) [Entitic vol] 10.0 fL Normal 9.0-12.7 [facility] Comment on above: Performed By: #### C BCDIF, PTT, FIBCT, PT ####[place] [phone] Platelets (Bld) [#/Vol] 167 10*3/uL Normal 150-400 [facility] Comment on above: Performed By: #### C BCDIF, PTT, FIBCT, PT ####[place] [phone] RBC (Bld) [#/Vol] 2.41 10*6/uL Low 4.20-6.00 [facility] Comment on above: Performed By: #### C BCDIF, PTT, FIBCT, PT ####[place] [phone] WBC (Bld) [#/Vol] 7.33 10*3/uL Normal 3.70-11.00 [facility] Comment on above: Performed By: #### C BCDIF, PTT, FIBCT, PT ####[place] [phone] Abs Baso 0.04 k/uL Normal <0.11 [facility] Comment on above: Performed By: #### C BCDIF, BMP, MG1, PHOS, PTT, PT ####[place] [phone] Abs Emanuel 0.56 k/uL Normal <0.87 [facility] Comment on above: Performed By: #### C BCDIF, BMP, MG1, PHOS, PTT, PT ####[place] [address] Abs Neut 5.40 k/uL Normal 1.45-7.50 [facility] Comment on above: Performed By: #### C BCDIF, BMP, MG1, PHOS, PTT, PT ####[place] [address] Basophils/100 WBC (Bld) 0.6 % Normal [facility] Comment on above: Performed By: #### C BCDIF, BMP, MG1, PHOS, PTT, PT ####[place] [address] DTYPE Auto Diff Normal [facility] Comment on above: Performed By: #### C BCDIF, PTT, FIBCT, PT ####[place] [address] Performed By: #### C BCDIF, BMP, MG1, PHOS, PTT, PT ####[place] [address] Eosinophils (Bld) [#/Vol] 0.06 10*3/uL Normal <0.46 [facility] Comment on above: Performed By: #### C BCDIF, BMP, MG1, PHOS, PTT, PT ####[place] [address] Eosinophils/100 WBC (Bld) 0.8 % Normal [facility] Comment on above: Performed By: #### C BCDIF, BMP, MG1, PHOS, PTT, PT ####[place] [address] Erythrocyte distribution width (RBC) [Ratio] 16.6 % High 11.5-15.0 [facility] Comment on above: Performed By: #### C BCDIF, BMP, MG1, PHOS, PTT, PT ####[place] [phone] Hematocrit (Bld) [Volume fraction] 24.9 % Low 39.0-51.0 [facility] Comment on above: Performed By: #### C BCDIF, BMP, MG1, PHOS, PTT, PT ####[place] [phone] Hemoglobin (Bld) [Mass/Vol] 8.3 g/dL Low 13.0-17.0 [facility] Comment on above: Performed By: #### C BCDIF, BMP, MG1, PHOS, PTT, PT ####[place] [phone] Lymphocytes (Bld) [#/Vol] 1.07 10*3/uL Normal 1.00-4.00 [facility] Comment on above: Performed By: #### C BCDIF, BMP, MG1, PHOS, PTT, PT ####[place] [phone] Lymphocytes/100 WBC (Bld) 15.0 % Normal [facility] Comment on above: Performed By: #### C BCDIF, BMP, MG1, PHOS, PTT, PT ####[place] [phone] MCH (RBC) [Entitic mass] 30.3 pG Normal 26.0-34.0 [facility] Comment on above: Performed By: #### C BCDIF, BMP, MG1, PHOS, PTT, PT ####[place] [phone] MCHC (RBC) [Mass/Vol] 33.3 g/dL Normal 30.5-36.0 [facility] Comment on above: Performed By: #### C BCDIF, BMP, MG1, PHOS, PTT, PT ####[place] [phone] MCV (RBC) [Entitic vol] 90.9 fL Normal 80.0-100.0 [facility] Comment on above: Performed By: #### C BCDIF, BMP, MG1, PHOS, PTT, PT ####[place] [phone] Monocytes/100 WBC (Bld) 7.9 % Normal [facility] Comment on above: Performed By: #### C BCDIF, BMP, MG1, PHOS, PTT, PT ####[place] [phone] Neutrophils/100 WBC (Bld) 75.7 % Normal [facility] Comment on above: Performed By: #### C BCDIF, BMP, MG1, PHOS, PTT, PT ####[place] [phone] Platelet mean volume (Bld) [Entitic vol] 9.8 fL Normal 9.0-12.7 [facility] Comment on above: Performed By: #### C BCDIF, BMP, MG1, PHOS, PTT, PT ####[place] [phone] Platelets (Bld) [#/Vol] 173 10*3/uL Normal 150-400 [facility] Comment on above: Performed By: #### C BCDIF, BMP, MG1, PHOS, PTT, PT ####[place] [phone] RBC (Bld) [#/Vol] 2.74 10*6/uL Low 4.20-6.00 [facility] Comment on above: Performed By: #### C BCDIF, BMP, MG1, PHOS, PTT, PT ####[place] [phone] WBC (Bld) [#/Vol] 7.13 10*3/uL Normal 3.70-11.00 [facility] Comment on above: Performed By: #### C BCDIF, BMP, MG1, PHOS, PTT, PT ####[place] [phone] Fibrinogenon 10-10-2019 Fibrinogen 410 mg/dL High 200-400 [facility] Comment on above: Performed By: #### C BCDIF, PTT, FIBCT, PT ####[place] [phone] HISTORY PHYSICALon 0 HISTORY PHYSICAL HNO ID: [id number] Author: Ryan May MD Service: Vascular Surgery Author Type: Physician Type: HANDP Filed: 10/10/2019 9:03 AM Note Text: As a result of the 09/03/19 order by [facility] Director Libby Harris M.D. to cancel non-essential surgeries that would use PPE, unless special criteria are met, I have reviewed the clinical record for this patient and have determined that the scheduled procedure meets the criteria to go forward because there is a threat of permanent dysfunction of an extremity or organ system. Possible thrombosis of the left [employer] graft. Possible hematoma. Plan to reexplore, evacuate hematoma, possible ileo-femoral bypass vs fem-fem bypass. Jermaine May MD Normal [facility] Hematocriton 10-10-2019 Hematocrit (Bld) [Volume fraction] 23.1 % Low 39.0-51.0 [facility] Comment on above: Performed By: #### H CT, HGB ####[place] [phone] Hemoglobinon 10-10-2019 Hemoglobin (Bld) [Mass/Vol] 7.4 g/dL Low 13.0-17.0 [facility] Comment on above: Performed By: #### H CT, HGB ####[place] [phone] Magnesiumon 10-10-2019 Magnesium [Mass/Vol] 1.8 mg/dL Normal 1.7-2.6 [facility] Comment on above: Performed By: #### C BCDIF, BMP, MG1, PHOS, PTT, PT ####[address], [place] [phone] Magnesium [Mass/Vol] 2.0 mg/dL Normal 1.7-2.6 [facility] Comment on above: Performed By: #### C BC, BMP, MG1, PHOS ####[facility] [place], [place] [phone] NURSING PROGon 10-10-2019 NURSING PROG HNO ID: [id number] Author: Yeimi NessRn) SEYMOUR Wong Service: ? Author Type: Registered Nurse Type: Nursing Progress Note Filed: 10/11/2019 7:38 AM Note Text: Nursing Progress Note Patient Name: Pedro Pablo Sierra Patient [id number][facility] __ Daily Note: 1900 Received bedside report from Josse AHUJA. 1999 Assessment complete. Please see all flowsheets. 2100 2 units of blood ordered per Dr. Johnson. 2199 Started 1 unit of PRBC per order. 0 Dr. Johnson and charger operator Daphney rounding on pt. SBAR given. New orders received. 2214 Spoke [id number] with Dr. Johnson. Okay to go by cuff pressure. 5 Started 1 unit of PRBC per order. 0000 Reassessment complete. Please see all flowsheets. 0130 Dr. Johnson at bedside. SBAR given. Per Dr. Johnson, draw AM labs at 0330. 0400 Reassessment complete. Please see all flowsheets. 0715 Bedside report given to Briana AHUJA. Normal [facility] NURSING PROG HNO ID: [id number] Author: Fran NessRn) SEYMOUR Quintana Service: Critical Care Author Type: Registered Nurse Type: Nursing Progress Note Filed: 10/10/2019 7:55 PM Note Text: Nursing Progress Note Patient Name: Pedro Pablo Sierra Patient Location: [id number][facility] -01 __ Daily Note: 0800: Full assessment complete. 0810: Talking with Misael, who would like amlodipine held this AM, okay to give metoprolol, and okayed by vascular surgery resident to give plavix. 0830: OR team at bedside. SBAR report. Plan to give cefazolin and PRBCs in OR. [phone]: On the phone with Joseph (pt's ex-) [...] as POA. 1042: Page to case management [facility] 245 in OR Mr. Sierra [phone]: Ania (pt's ex-) states that she submitted papers recently while at [facility] that she is healthcare POA. Last AD I see is 2013 that has Michelle Richmond (pt's daughter) as POA. -Josse AHUJA [id number] 1600: pT disoriented to self and time emerging from anesthesia. 1620: Pt calling recreation therapy aides teacher light stating he is bleeding. Upon assessment, blood seeping gown and chucks pad under pt. Pressure applied to L groin sight. Page to Dr. Jeter (surgical clinical reviewer). 1621: Dr. Jeter at bedside, assuming full [...] note was completed by: Fran Quintana RN [facility] NURSING PROG HNO ID: [id number] Author: Chrystal NessRn) SEYMOUR Jacob Service: Critical Care Author Type: Registered Nurse Type: Nursing Progress Note Filed: 10/10/2019 6:32 AM Note Text: Nursing Progress Note Patient Name: Pedro Pablo Sierra Patient Location: [id number]/-[facility]-0 245- __ Daily Note: 1900: Bedside handoff received from SEYMOUR Patel. Patient resting in bed, Heparin gtt verified. Pulses dual checked 1999: Full assessment completed. See doc flowsheets. 0000: Reassessment completed. Pulses still present via dopplar. 0400: Reassessment completed. See doc flowsheets. 0545: Patient pulled out IV. Reduced access. Dr. Moody aware. IV fluids stopped. This note was completed by: Chrystal Jacob RN [facility] OPERATIVE NOon 10-10-2019 OPERATIVE NO HNO ID: [id number] Author: Ryan May MD Service: Vascular Surgery Author Type: Physician Type: Operative Report Filed: 10/10/2019 1:51 PM Note Text: OPERATIVE/PROCEDURE REPORT LOG ID: [id number] Surgery/Procedure Date: 10/10/2019 Incision/Procedure Start Time:9:52 AM Incision Close/Procedure End Time: 13:49 Surgeon(s)/Procedurali st(s) and Regional Climate Change Analyst(s): Surgeon(s) and Role: * Ryan May MD - Primary * Elly (Azalea) Stephanie - Resident - Assisting No Additional Staff Anesthesia: General Procedure(s): Left EIA to [employer] bypass with 7mm ringed PTFE end to [...] to side to the patch. The proximal [employer] was clamped with four orange clips. Flow [...] DATE: 10/10/2019 TIME: 1:40 PM PAGER/CONTACT #: [facility] PROGRESSon 10-10-2019 PROGRESS HNO ID: [id number] Author: Elly Brown Service: Vascular Surgery Author [...] (iso-osmotic) 100 mL (ANCEF) 2 g INTRAVENOUS Instructional Services Specialist to OR - NaCl 0.9% iv infusion [...] 1604 -- 10/08/19 1645 pneumatic compression stockings (wi,oh) VTE Prophylaxis: on hep gtt ALLERGIES No [...] hematoma evacuation, possible thrombectomy, possible fem/fem. 2U recreation therapy aides teacher to OR Ok to cont. AC Ancef recreation therapy aides teacher to OR HOSPITALIZATION(S) Indication for admission/procedure: BLE pain Important/Relevant PMH/PSH: s/p left femoral endarterectomy with patch, US guided access RCFA, L profundaplasty, RUFUS recanalization AND stenting, CRISPIN stenting on 10/23, UC, CAD previous MN, DM, HTN, HLD, COPD Overall Course: 63 year old male with acute onset of BLE pain. Taken to OR for initiation of thrombolysis thru LCIA/TORITO Procedure/Surgeries: 1. Aortogram with bilateral ileofemoral runoff via left brachial artery 2. Left leg angiogram, 3rd order 3. Placement of lysis catheter from distal aorta to left SFA, 20cm treatment zone [facility] 07/02/2014 Thrombectomy Airway Difficulty: NA OR Course: [...] 10, 2019 TIME: 7:50 AM PAGER/CONTACT #: [phone] [facility] PROGRESS HNO ID: [id number] Author: Rashawn Huntley Service: Critical Care Author [...] CURRENT MEDICATIONS: Medications reviewed. Please refer to [facility] for list of inpatient medications. Current [...] (iso-osmotic) 100 mL (ANCEF) 2 g INTRAVENOUS Instructional Services Specialist to OR Juliana Oden (Pa) - NaCl [...] hospitalization are listed below. Plese refer to Personal for a full listing of cultures obtained during this hospitalization. ? N/A DIAGNOSTIC TESTS: The following diagnostic tests/findings were reviewed: ? Most recent labs and imaging results. MOST RECENT CXR FINDINGS: Increased vascular markings, likely fluid overload. OPERATIVE PROCEDURE(S): Date of surgery: 10/08/19 Procedure: Left common [employer] endarterectomy with bovine path Left profundoplasty Left iliac stenting X4 (I-Cast X2, Jessica X2) Multiple angiograms with angioplasty Surgeon: Dr. 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 May on 10/08/19. She is admitted to SICU post-operatively for neurovascular checks and close hemodynamic monitoring. Developed L [employer] occlusion POD2 and going back to OR [...] -- 10/08/19 1700 activity - mobilize patient (wi,oh) 10/08/19 1645 pneumatic compression stockings (wi,oh) VTE Prophylaxis: VTE prophylaxis appropriate To be seen and discussed on rounds with SICU staff: Dr. Huntley ICU Checklist --------- --- VTE Prophylaxis: SIGNATURE: Misael Jeter MD PATIENT NAME: Pedro Pablo Sierra DATE: October 10, 2019 TIME: 6:40 AM PAGER/CONTACT #: [phone] [facility] STAFF PHYSICIAN NOTE OF PERSONAL INVOLVEMENT [...] HTN GERD ? Procedure/Surgeon 10/08/19 S/P L [employer] endarterectomy with bovine path, profundoplasty and iliac [...] Huntley DO 7:56 AM October 10, 2019 [facility] PTT,Anticoag Therapyon 10-09 aPTT Coag (Bld) [Time] 109.7 s High 23.0-32.4 [facility] Comment on above: Result Comment: Unfr [...] laboratory APTT reagent in use throughout the [facility]. Called to and read back by: Landry Quintana RN [facility] 10/10/19 Noemí HOLLIS Performed By: #### P TTAC ####[place] [phone] Phosphoruson 10-10-2019 Phosphate [Mass/Vol] 3.0 mg/dL Normal 2.5-4.5 [facility] Comment on above: Performed By: #### C BCDIF, BMP, MG1, PHOS, PTT, PT ####[place] [phone] Phosphate [Mass/Vol] 2.1 mg/dL Low 2.5-4.5 [facility] Comment on above: Performed By: #### C BC, BMP, MG1, PHOS ####[address] [phone] Protimeon 10-10-2019 PT Coag (PPP) [Time] 10.5 s Normal 9.7-13.0 [facility] Comment on above: Performed By: #### C BCDIF, PTT, FIBCT, PT ####[place] [phone] PT Coag (PPP) [Time] 1.0 s Normal 0.9-1.3 [facility] Comment on above: Result Comment: Teri min K Antagonist (VKA) Therapeutic Range: INR 2 to 3 (Target INR of 2.5) Note: For patients treated with VKA drugs, such as warfarin, the [place] [employer] 2012 Guideline recommends [...] Chest 2012, 141:7S-47S Gio RA, et al. [facility] 2017, 70: 252-289 Performed By: #### C BCDIF, PTT, FIBCT, PT ####[place] [phone] Performed By: #### C BCDIF, BMP, MG1, PHOS, PTT, PT ####[place] [phone] PT Coag (PPP) [Time] 10.9 s Normal 9.7-13.0 [facility] Comment on above: Performed By: #### C BCDIF, BMP, MG1, PHOS, PTT, PT ####[place] [phone] SURGICAL PATHOLOGYon 020 SURGICAL PATHOLOGY Specimen originated from [facility] Specimen #: [id number] Submitting Physician: RYAN MAY FINAL DIAGNOSIS Left [...] x 1.0 cm. No vessel is seen. Inside Channel Account Manager sections are submitted in formalin in one cassette. KVB/ka 10/14/2019 Gross examination performed at [facility], [address] [place] [address] Date of Report: 10/15/2019 Date of Procedure: 10/10/2019 Date of Receipt: 10/11/2019 Submitted by: RYAN MAY Location: [facility] Diagnostic interpretation performed at [place] [address]. IA Number: [id number] [facility] THERAPY NTon 10-10-2019 THERAPY NT HNO ID: [id number] Author: Shakir NessPtPauline Coello Service: Physical Therapy Author Type: Physical Therapist Type: Therapy (PT/OT/Speech/Resp) Filed: 10/10/2019 1:18 PM Note Text: .PHYSICAL THERAPY MISSED VISIT SERVICE DATE: 10/10/2019 SERVICE TIME: 1317 to 1317 ROOM: [facility] ( OPERATING ROOM) Attempted Treatment. Patient not seen due to Surgery. SIGNATURE: Shakir Coello PT PATIENT NAME: Pedro Pablo Sierra DATE: October 10, 2019 TIME: 1:18 PM [facility] THERAPY NT HNO ID: [id number] Author: Caitlin Thomas Service: Occupational Therapy Author Type: Occupational Therapist Type: Therapy (PT/OT/Speech/Resp) Filed: 10/10/2019 7:37 AM Note Text: OCCUPATIONAL THERAPY MISSED VISIT SERVICE DATE: 10/10/2019 SERVICE TIME: 0736 to 0736 ROOM: [place] [address] Attempted Treatment. Patient not seen due to Surgery. Pt going back to OR. OT tx on hold today. Will continue to monitor. SIGNATURE: Caitlin Thomas OTR/L PATIENT NAME: Pedro Pablo Sierra DATE: October 10, 2019 TIME: 7:36 AM [facility] XR CHEST 1V FRONTAL PORTon 0 [...] airspace opacities, which may relate to atelectasis. Data Miner: PSCB Transcribe Date/Time: Oct 10 2019 6:59A Dictated by : DULCE BARRON MD This examination was interpreted and the report reviewed and electronically signed by: DULCE BARRON MD on Oct 10 2019 7:00AM EST [id number] Normal [facility] ALLIED HEALTHon 10-09-2019 ALLIED HEALTH HNO ID: [id number] Author: Markell NessSpanish LinguistPauline Alonzo Service: Spiritual Care Author Type: Spanish Linguist Type: Allied Health Filed: 10/09/2019 5:11 PM [...] patient's RN who could page the on-call coremaker bench. ? To contact the [facility] Care Department: Please call [phone]?or Page the On-Call Spanish Linguist at pager [phone].??? Thank you for the opportunity to be of service. SIGNATURE: Chaplain Terry PATIENT NAME: Pedro Pablo Sierra DATE: October 09, 2019 TIME: 5:09 PM PAGER/CONTACT #: [phone] Normal [facility] APTTon 10-09-2019 aPTT Coag (Bld) [Time] 20.8 s Low 23.0-32.4 [facility] Comment on above: Result Comment: Unfr [...] laboratory APTT reagent in use throughout the [facility]. Performed By: #### C BC, BMP, MG1, PHOS, PTT, PT ####[place] [id number] [place], [place] [phone] Basic Metabolic Panlon 10-08 Anion gap [Moles/Vol] 9 mmol/L Normal 9-18 [facility] Comment on above: Performed By: #### C BC, BMP, MG1, PHOS, PTT, PT ####[place] [id number] [place], [place] [phone] Calcium [Mass/Vol] 8.1 mg/dL Low 8.5-10.5 [facility] Comment on above: Performed By: #### C BC, BMP, MG1, PHOS, PTT, PT ####[place] [id number] [place], [place] [phone] Chloride [Moles/Vol] 101 mmol/L Normal 98-110 [facility] Comment on above: Performed By: #### C BC, BMP, MG1, PHOS, PTT, PT ####[place] [phone] CO2 [Moles/Vol] 26 mmol/L Normal 23-32 [facility] Comment on above: Performed By: #### C BC, BMP, MG1, PHOS, PTT, PT ####[place] [phone] Creatinine [Mass/Vol] 0.81 mg/dL Normal 0.70-1.40 [facility] Comment on above: Performed By: #### C BC, BMP, MG1, PHOS, PTT, PT ####[place] [phone] eGFR- Amer. >60 Normal >60 [facility] Comment on above: Performed By: #### C BC, BMP, MG1, PHOS, PTT, PT ####[place] [phone] GFR/1.73 sq M predicted among non-blacks MDRD (S/P/Bld) [Vol rate/Area] mL/min/{1.73_m2} Normal >60 [facility] Comment on above: Performed By: #### C BC, BMP, MG1, PHOS, PTT, PT ####[place] [phone] Glucose [Mass/Vol] 129 mg/dL High 65-100 [facility] Comment on above: Performed By: #### C BC, BMP, MG1, PHOS, PTT, PT ####[place] [phone] Potassium [Moles/Vol] 4.5 mmol/L Normal 3.5-5.0 [facility] Comment on above: Performed By: #### C BC, BMP, MG1, PHOS, PTT, PT ####[place] [phone] Sodium [Moles/Vol] 136 mmol/L Normal 135-146 [facility] Comment on above: Performed By: #### C BC, BMP, MG1, PHOS, PTT, PT ####[facility] [place], [place] [phone] Urea nitrogen [Mass/Vol] 15 mg/dL Normal 10-25 [facility] Comment on above: Performed By: #### C BC, BMP, MG1, PHOS, PTT, PT ####[place] [id number] [place], [place] [phone] CASE MANAGEMon 10-09-2019 CASE MANAGEM HNO ID: [id number] Author: Carly NessRn) SEYMOUR Man Service: Case [...] once a week. Pt nurse is from [facility] ). Carmen would like AVS faxed at d/c to [phone] SIGNATURE: Carly Man RN,BSN PATIENT NAME: Pedro Pablo Sierra DATE: October 09, 2019 TIME: 1:44 PM PAGER/CONTACT #: [phone] [facility] CASE MGT INIT ASSESon 2019 CASE MGT INIT [facility] HNO ID: [id number] Author: Carly NessRn) SEYMOUR Man Service: Case Management Author Type: Registered Nurse Type: Care Mgt Initial Assessment Filed: 10/09/2019 12:41 PM Note Text: CARE MANAGEMENT: ASSESSMENT AND DISCHARGE PLAN SERVICE DATE: October 09, 2019 SERVICE TIME: 1240 PRIMARY CARE PHYSICIAN: DAIJA MORTON MD ADMISSION STATUS: Inpatient Needs Prior to Discharge: To Be Determined MEDICAL: [facility] MEDICARE 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 Last discharge within 30 days: No Advance Directive: Current Advance Directive: Health Care 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;Living Will In Chart: Yes Up To Date [...] Completely I feel financially burdened by my [id number] expenses for my prescription medication:: 0 - Disagree Completely Risk Score: 0 Patient is categorized as: Low risk < 2 Are you interested in bedside delivery of your medications? No Is Patient Psychosocially Complex?: No ASSESSMENT AND PLAN: Medical Needs: Medical Needs: Two or more chronic diseases;Fall risk or frequent falls Psychosocial Needs: Psychosocial Needs: None FREEDOM OF CHOICE EXPLAINED: [place] of Choice Given: No Reason Not Given: No placements necessary POTENTIAL TRANSITION PLANS To Be Determined 69 yo male admitted for vascular procedure, vascular surgery following. 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 Pt states B/B [...] 09, 2019 TIME: 12:26 PM PAGER/CONTACT #: [phone] Normal [facility] CBCon 10-09-2019 Erythrocyte distribution width (RBC) [Ratio] 15.7 % High 11.5-15.0 [facility] Comment on above: Performed By: #### C BC, BMP, MG1, PHOS, PTT, PT ####[facility] [place], [place] [phone] Hematocrit (Bld) [Volume fraction] 28.4 % Low 39.0-51.0 [facility] Comment on above: Performed By: #### C BC, BMP, MG1, PHOS, PTT, PT ####[place] [phone] MCH (RBC) [Entitic mass] 30.2 pG Normal 26.0-34.0 [facility] Comment on above: Performed By: #### C BC, BMP, MG1, PHOS, PTT, PT ####[place] [phone] MCHC (RBC) [Mass/Vol] 32.7 g/dL Normal 30.5-36.0 [facility] Comment on above: Performed By: #### C BC, BMP, MG1, PHOS, PTT, PT ####[place] [phone] MCV (RBC) [Entitic vol] 92.2 fL Normal 80.0-100.0 [facility] Comment on above: Performed By: #### C BC, BMP, MG1, PHOS, PTT, PT ####[place] [phone] Platelet mean volume (Bld) [Entitic vol] 9.9 fL Normal 9.0-12.7 [facility] Comment on above: Performed By: #### C BC, BMP, MG1, PHOS, PTT, PT ####[place] [phone] Platelets (Bld) [#/Vol] 220 10*3/uL Normal 150-400 [facility] Comment on above: Performed By: #### C BC, BMP, MG1, PHOS, PTT, PT ####[place] [phone] RBC (Bld) [#/Vol] 3.08 10*6/uL Low 4.20-6.00 [facility] Comment on above: Performed By: #### C BC, BMP, MG1, PHOS, PTT, PT ####[place] [phone] WBC (Bld) [#/Vol] 7.77 10*3/uL Normal 3.70-11.00 [facility] Comment on above: Performed By: #### C BC, BMP, MG1, PHOS, PTT, PT ####[place] [phone] CBC and Differentialon 10-08 Abs Baso <0.03 Normal <0.11 [facility] Comment on above: Performed By: #### C BCDIF ####[place] [phone] Abs Emanuel 0.50 k/uL Normal <0.87 [facility] Comment on above: Performed By: #### C BCDIF ####[place] [phone] Abs Neut 5.57 k/uL Normal 1.45-7.50 [facility] Comment on above: Performed By: #### C BCDIF ####[place] [phone] Basophils/100 WBC (Bld) 0.3 % Normal [facility] Comment on above: Performed By: #### C BCDIF ####[place] [phone] DTYPE Auto Diff Normal [facility] Comment on above: Performed By: #### C BCDIF ####[place] [phone] Eosinophils (Bld) [#/Vol] 10*3/uL Normal <0.46 [facility] Comment on above: Performed By: #### C BCDIF ####[place] [phone] Eosinophils/100 WBC (Bld) 0.1 % Normal [facility] Comment on above: Performed By: #### C BCDIF ####[place] [phone] Erythrocyte distribution width (RBC) [Ratio] 16.0 % High 11.5-15.0 [facility] Comment on above: Performed By: #### C BCDIF ####[place] [phone] Hematocrit (Bld) [Volume fraction] 28.9 % Low 39.0-51.0 [facility] Comment on above: Performed By: #### C BCDIF ####[place] [phone] Hemoglobin (Bld) [Mass/Vol] 9.3 g/dL Low 13.0-17.0 [facility] Comment on above: Performed By: #### C BCDIF ####[place] [phone] Performed By: #### C BC, BMP, MG1, PHOS, PTT, PT ####[place] [phone] Lymphocytes (Bld) [#/Vol] 1.19 10*3/uL Normal 1.00-4.00 [facility] Comment on above: Performed By: #### C BCDIF ####[place] [phone] Lymphocytes/100 WBC (Bld) 16.3 % Normal [facility] Comment on above: Performed By: #### C BCDIF ####[place] [phone] MCH (RBC) [Entitic mass] 30.0 pG Normal 26.0-34.0 [facility] Comment on above: Performed By: #### C BCDIF ####[place] [phone] MCHC (RBC) [Mass/Vol] 32.2 g/dL Normal 30.5-36.0 [facility] Comment on above: Performed By: #### C BCDIF ####[place] [phone] MCV (RBC) [Entitic vol] 93.2 fL Normal 80.0-100.0 [facility] Comment on above: Performed By: #### C BCDIF ####[address] [phone] Monocytes/100 WBC (Bld) 6.9 % Normal [facility] Comment on above: Performed By: #### C BCDIF ####[address] [phone] Neutrophils/100 WBC (Bld) 76.4 % Normal [facility] Comment on above: Performed By: #### C BCDIF ####[address] [phone] Platelet mean volume (Bld) [Entitic vol] 9.8 fL Normal 9.0-12.7 [facility] Comment on above: Performed By: #### C BCDIF ####[place] [phone] Platelets (Bld) [#/Vol] 200 10*3/uL Normal 150-400 [facility] Comment on above: Performed By: #### C BCDIF ####[address] [phone] RBC (Bld) [#/Vol] 3.10 10*6/uL Low 4.20-6.00 [facility] Comment on above: Performed By: #### C BCDIF ####[address] [phone] WBC (Bld) [#/Vol] 7.29 10*3/uL Normal 3.70-11.00 [facility] Comment on above: Performed By: #### C BCDIF ####[address] [phone] MEDICAL EMERon 10-09-2019 MEDICAL LEYLA HNO ID: [id number] Author: Misael Jeter MD Service: Critical Care [...] Jeter MD General Surgery Resident PGY2 Pager: [phone] 10/09/2019 5:11 PM Normal [facility] Magnesiumon 10-09-2019 Magnesium [Mass/Vol] 2.1 mg/dL Normal 1.7-2.6 [facility] Comment on above: Result Comment: Revi ewed Performed By: #### C BC, BMP, MG1, PHOS, PTT, PT ####[facility] [place], [place] [phone] NURSING PROGon 10-09-2019 NURSING PROG HNO ID: [id number] Author: Amanda (Rn) SEYMOUR Delgadillo Service: Nursing Author Type: Registered Nurse Type: Nursing Progress Note Filed: 10/09/2019 6:36 PM Note Text: Nursing Progress Note Patient Name: Pedro Pablo Sierra Patient Location: [id number] __ Daily Note: 1745: Bedside handoff received from SEYMOUR Shields. 1800: Dr. Fish at bedside. Patient c/o numbness in left leg. Bilateral DP and PT pulses doppled. Dr. Fish obtaining consent for surgery tomorrow. 1900: Bedside handoff given to SEYMOUR Jarrell. This note was completed by: Amanda Delgadillo RN [facility] NURSING PROG HNO ID: [id number] Author: Cornelius Hutchison) SEYMOUR Gonzalez Service: Nursing Author Type: Registered Nurse Type: Nursing Progress Note Filed: 10/09/2019 5:39 PM Note Text: Nursing Progress Note Patient Name: Pedro Pablo Sierra Patient Location: [id number]/[facility] __ Daily Note: 0700 Bedside report received from previous shift RN. 0800 Assessment completed and charted. Neuro intact. VSS. Pulses present via doppler. See flowsheets. 1200 Assessment completed and charted. 1600 Reassessment completed and charted. 1730 Heparin gtt started. See AUG. 1744 Bedside report given to Tigist AHUJA. 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 Formal arterial duplex of LLE shows occluded SALESPERSON MEN'[employer] FURNISHINGS. Plan for exploration and revascularization with Dr. 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 ETX#[id number] For questions Monday through Monday 6am to 6pm please page Red Team [phone] For questions during nights (6pm - 6am) and weekends, please contact the General Surgery Instructional Services Specialist pager, [phone] [facility] PROGRESS HNO ID: [id number] Author: Rashawn Huntley Service: Critical Care Author [...] CURRENT MEDICATIONS: Medications reviewed. Please refer to [facility] for list of inpatient medications. Current Facility-Administered Medications Medication Dose Route Frequency Provider Last Rate Last Dose - meperidine (PF) 12.5 mg injection (DEMEROL) 12.5 mg INTRAVENOUS q 10 MIN PRN Anabel Loznao - HYDROmorphone 0.2 mg injection (DILAUDID) 0.2 [...] hospitalization are listed below. Plese refer to [facility] for a full listing of cultures obtained during this hospitalization. ? N/A DIAGNOSTIC TESTS: The following diagnostic tests/findings were reviewed: ? Most recent labs and imaging results. MOST RECENT CXR FINDINGS: n/a OPERATIVE PROCEDURE(S): Date of surgery: 10/08/19 Procedure: Left common SALESP[employer] FURNISHINGS endarterectomy with bovine path Left profundoplasty Left iliac stenting X4 (I-Cast X2, Jessica X2) Multiple angiograms with angioplasty Surgeon: Dr. 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 Huntley ICU Checklist --------- --- VTE Prophylaxis: SIGNATURE: Misael Jeter MD PATIENT NAME: Pedro Pablo Sierra DATE: October 09, 2019 TIME: 6:40 AM PAGER/CONTACT #: [phone] [facility] STAFF PHYSICIAN NOTE OF PERSONAL INVOLVEMENT [...] Essential HTN GERD Procedure/Surgeon 10/08/19 S/P L [employer] endarterectomy with bovine path, profundoplasty and iliac [...] DO 8:20 AM October 09, 2019 Normal [facility] PTT,Anticoag Therapyon 10-08 aPTT Coag (Bld) [Time] 23.9 s Normal 23.0-32.4 [facility] Comment on above: Result Comment: Unfr [...] laboratory APTT reagent in use throughout the [facility]. Performed By: #### P T, PTTAC ####[address] [phone] Phosphoruson 10-09-2019 Phosphate [Mass/Vol] 3.6 mg/dL Normal 2.5-4.5 [facility] Comment on above: Performed By: #### C BC, BMP, MG1, PHOS, PTT, PT ####[address] [phone] Protimeon 10-09-2019 PT Coag (PPP) [Time] 10.2 s Normal 9.7-13.0 [facility] Comment on above: Performed By: #### P T, PTTAC ####[address] [phone] PT Coag (PPP) [Time] 1.0 s Normal 0.9-1.3 [facility] Comment on above: Result Comment: Teri min K Antagonist (VKA) Therapeutic Range: INR 2 to 3 (Target INR of 2.5) Note: For patients treated with VKA drugs, such as warfarin, the [place] [employer] 2012 Guideline recommends [...] [phone] Performed By: #### P T, PTTAC ####[place] [phone] Performed By: #### C BC, BMP, MG1, PHOS, PTT, PT ####[place] [phone] PT Coag (PPP) [Time] 10.5 s Normal 9.7-13.0 [facility] Comment on above: Performed By: #### C BC, BMP, MG1, PHOS, PTT, PT ####[place] [phone] Staph aureus PCRon 0 MRSA PCR Negative [facility] Comment on above: Performed By: #### S APCR ####[place] [phone] S aureus Spec Source Nasal [facility] Comment on above: Performed By: #### S APCR ####[phone] Staph aureus PCR Negative [facility] Comment on above: Performed By: #### S APCR ####[place] [phone] [phone] THERAPY NTon 10-09-2019 THERAPY NT HNO ID: [id number] Author: Shakir Alicea (Pt) Mode Service: Physical Therapy Author Type: Physical Therapist Type: Therapy (PT/OT/Speech/Resp) Filed: 10/09/2019 2:58 PM Note Text: Physical Therapy Evaluation SERVICE DATE: 10/09/2019 SERVICE TIME: 1055 to 1120 ROOM: [id number] Recommended Discharge Disposition: Home PT Anticipated Discharge [...] ness on feet Interventions Provided: Evaluation;Gait Training (50961) $ Evaluation-Moderate (07758) Billed Units: 1 unit Gait Training (88021) Treatment Minutes: 10 1 unit Skilled Intervention(s): [...] Consult : PVD s/p L LE redo [employer] endarterectomy, L profundoplasty, iliac stenting on 10/08/19 Relevant Past Medical History: CAD, [place], HTN, HLD, COPD, PJ, DM, anxiety, depression, blind R eye Patient Report: Pt agreeable to participate in therapy session Home Environment Patient Lives With: Self/Alone Assistance 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 Entry To Home: Stairs;Other: See Comment(stair lift) [...] October 09, 2019 TIME: 2:46 PM Normal [facility] THERAPY NT HNO ID: [id number] Author: Caitlin (Ot) William Service: Occupational Therapy Author Type: Occupational Therapist Type: Therapy (PT/OT/Speech/Resp) Filed: 10/09/2019 12:48 PM Note Text: Occupational Therapy Evaluation SERVICE DATE: 10/09/2019 SERVICE TIME: 1010 to 1050 ROOM: [place] [address] Recommended Discharge Disposition: Home OT Justification For [...] and Awareness;Unsteadiness on feet Interventions Provided: Evaluation;Self Custodial Management (83926) $ Evaluation-Moderate (45700) Billed Units: 1 unit Self Custodial Management (05733) Treatment Minutes: 25 2 units Skilled Intervention(s): [...] Reason for Occupational Therapy Consult: redo L [employer] endarterectomy, L profundoplasty, L iliac stenting 10/07 Relevant Past Medical History: CAD, [place], HTN, HLD, COPD, PJ, DM, anxiety, depression, blind R eye Patient Report: My daughter is a nurse. She's over a lot. Home Environment Patient Lives With: Self/Alone Assistance 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(daughter comes over often) Entry To Home: Stairs(pt [...] DATE: October 09, 2019 TIME: 12:39 PM [facility] ANES POSTPROC EVALon 020 ANES POSTPROC EVAL HNO ID: [id number] Author: Job Roberts Service: ? Author Type: [...] ) Diagnosis: PVD (peripheral vascular disease) ([facility]) (PVD (peripheral vascular disease) ([facility]) [I73.9]) Surgeon: Ryan May [...] October 08, 2019 TIME: 6:39 PM CSN: [id number] [facility] ANES PRE-OPon 10-08-2019 ANES PRE-OP HNO ID: [id number] Author: Anabel Lozano Service: ? Author Type: [...] movements. - COMPOUNDED PRESCRIPTION Aerosol supplies Dx:J44.1 NPI#[id number] - ipratropium-albuterol (DUONEB) 0.5 mg-3 mg(2.5 mg [...] October 08, 2019 TIME: 8:42 AM CSN: [id number] Normal [facility] APTTon 10-08-2019 aPTT Coag (Bld) [Time] 53.2 s High 23.0-32.4 [facility] Comment on above: Result Comment: Unfr [...] laboratory APTT reagent in use throughout the [facility]. Performed By: #### C BC, BMP, MG1, PHOS, PT, PTT ####[place] [id number] [place], [place] [phone] Basic Metabolic Panlon 10-07 Anion gap [Moles/Vol] 13 mmol/L Normal 9-18 [facility] Comment on above: Performed By: #### C BC, BMP, MG1, PHOS, PT, PTT ####[facility] [place], [place] [phone] Calcium [Mass/Vol] 8.4 mg/dL Low 8.5-10.5 [facility] Comment on above: Performed By: #### C BC, BMP, MG1, PHOS, PT, PTT ####[place] [phone] [place], [place] [phone] Chloride [Moles/Vol] 100 mmol/L Normal 98-110 [facility] Comment on above: Performed By: #### C BC, BMP, MG1, PHOS, PT, PTT ####[place] [phone] CO2 [Moles/Vol] 24 mmol/L Normal 23-32 [facility] Comment on above: Performed By: #### C BC, BMP, MG1, PHOS, PT, PTT ####[place] [phone] Creatinine [Mass/Vol] 0.71 mg/dL Normal 0.70-1.40 [facility] Comment on above: Performed By: #### C BC, BMP, MG1, PHOS, PT, PTT ####[place] [phone] eGFR- Amer. >60 Normal >60 [facility] Comment on above: Performed By: #### C BC, BMP, MG1, PHOS, PT, PTT ####[place] [phone] GFR/1.73 sq M predicted among non-blacks MDRD (S/P/Bld) [Vol rate/Area] mL/min/{1.73_m2} Normal >60 [facility] Comment on above: Performed By: #### C BC, BMP, MG1, PHOS, PT, PTT ####[place] [phone] Glucose [Mass/Vol] 160 mg/dL High 65-100 [facility] Comment on above: Performed By: #### C BC, BMP, MG1, PHOS, PT, PTT ####[place] [phone] Potassium [Moles/Vol] 4.1 mmol/L Normal 3.5-5.0 [facility] Comment on above: Performed By: #### C BC, BMP, MG1, PHOS, PT, PTT ####[place] [phone] Sodium [Moles/Vol] 137 mmol/L Normal 135-146 [facility] Comment on above: Performed By: #### C BC, BMP, MG1, PHOS, PT, PTT ####[place] [phone] Urea nitrogen [Mass/Vol] 12 mg/dL Normal 10-25 [facility] Comment on above: Performed By: #### C BC, BMP, MG1, PHOS, PT, PTT ####[place] [phone] CBCon 10-08-2019 Erythrocyte distribution width (RBC) [Ratio] 15.6 % High 11.5-15.0 [facility] Comment on above: Performed By: #### C BC, BMP, MG1, PHOS, PT, PTT ####[place] [phone] Hematocrit (Bld) [Volume fraction] 35.7 % Low 39.0-51.0 [facility] Comment on above: Performed By: #### C BC, BMP, MG1, PHOS, PT, PTT ####[place] [phone] Hemoglobin (Bld) [Mass/Vol] 11.7 g/dL Low 13.0-17.0 [facility] Comment on above: Performed By: #### C BC, BMP, MG1, PHOS, PT, PTT ####[place] [phone] MCH (RBC) [Entitic mass] 30.3 pG Normal 26.0-34.0 [facility] Comment on above: Performed By: #### C BC, BMP, MG1, PHOS, PT, PTT ####[place] [phone] MCHC (RBC) [Mass/Vol] 32.8 g/dL Normal 30.5-36.0 [facility] Comment on above: Performed By: #### C BC, BMP, MG1, PHOS, PT, PTT ####[address] [phone] MCV (RBC) [Entitic vol] 92.5 fL Normal 80.0-100.0 [facility] Comment on above: Performed By: #### C BC, BMP, MG1, PHOS, PT, PTT ####[address] [phone] Platelet mean volume (Bld) [Entitic vol] 10.1 fL Normal 9.0-12.7 [facility] Comment on above: Performed By: #### C BC, BMP, MG1, PHOS, PT, PTT ####[address] [phone] Platelets (Bld) [#/Vol] 280 10*3/uL Normal 150-400 [facility] Comment on above: Performed By: #### C BC, BMP, MG1, PHOS, PT, PTT ####[address] [phone] RBC (Bld) [#/Vol] 3.86 10*6/uL Low 4.20-6.00 [facility] Comment on above: Performed By: #### C BC, BMP, MG1, PHOS, PT, PTT ####[address] [phone] WBC (Bld) [#/Vol] 10.62 10*3/uL Normal 3.70-11.00 [facility] Comment on above: Performed By: #### C BC, BMP, MG1, PHOS, PT, PTT ####[address] [phone] HISTORY PHYSICALon 0 HISTORY PHYSICAL HNO ID: [id number] Author: Rashawn Huntley Service: Critical Care Author Type: Anesthesiologist Type: HANDP Filed: 10/08/2019 6:30 PM Note Text: SICU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 rate 16 /min Dr. Daija Morton MD Work Phone: 2(880)112-658042 [place] [address] 01-03-2025 10:00-0400 SaO2% (BldA) [Mass fraction] 99 % Dr. Daija Morton MD Work Phone: 3(441)843-817842 [place] [address] 01-03-2025 10:00-0400 Systolic blood pressure 174 mm[Hg] Dr. Daija Morton MD Work Phone: 6(361)545-884742 [place] [address] 01-03-2025 08:17-0400 Body temperature 97.6 [degF] Dr. Daija Morton MD Work Phone: 2(499)176-800242 [place] [address] 01-03-2025 06:27-0400 Body height 182.[address] Daija Morton MD Work Phone: 7(251)246-958342 [place] [address] 01-03-2025 06:27-0400 Body mass index (BMI) [Ratio] 20.4 kg/m2 Dr. Daija Morton MD Work Phone: 9(010)351-861842 [place] [address] 01-03-2025 06:27-0400 Body weight 68.[address] Daija Morton MD Work Phone: 2(895)280-861542 [place] [address] 12-26-2024 18:05-0400 Diastolic blood pressure 72 mm[Hg] Dr. Daija Morton MD Work Phone: 4(176)383-807742 [place] [address] 12-26-2024 18:05-0400 Heart rate 74 /min Dr. Daija Morton MD Work Phone: 6(866)747-316142 [place] [address] 12-26-2024 18:05-0400 Systolic blood pressure 162 mm[Hg] Dr. Daija Morton MD Work Phone: 4(224)201-826042 [place] [address] 12-26-2024 14:27-0400 Body temperature 97.9 [degF] Dr. Daija Morton MD Work Phone: 8(174)130-011742 [place] [address] 12-26-2024 14:27-0400 Inhaled oxygen flow rate 2 L/min Dr. Daija Morton MD Work Phone: 2(930)316-947142 [place] [address] 12-26-2024 14:27-0400 Respiratory rate 18 /min Dr. Daija Morton MD Work Phone: 9(880)687-061142 [place] [address] 12-26-2024 14:27-0400 SaO2% (BldA) [Mass fraction] 96 % Dr. Daija Morton MD Work Phone: 6(284)969-323142 [place] [address] 12-26-2024 04:00-0400 Body mass index (BMI) [Ratio] 24.5 kg/m2 Dr. Daija Morton MD Work Phone: 8(370)139-320142 [place] [address] 12-25-2024 11:12-0400 Body height 172.[address] Daija Morton MD Work Phone: 9(806)604-606342 [place] [address] 12-25-2024 11:12-0400 Body weight [address] Daija Morton MD Work Phone: 4(260)669-610742 [place] [address] 12-17-2024 18:14-0400 Body temperature 98.5 [degF] Dr. Daija Morton MD Work Phone: 6(369)565-603842 [place] [address] 12-17-2024 18:14-0400 Diastolic blood pressure 91 mm[Hg] Dr. Daija Morton MD Work Phone: 7(931)139-713942 [place] [address] 12-17-2024 18:14-0400 Heart rate 64 /min Dr. Daija Morton MD Work Phone: 9(770)761-220742 [place] [address] 12-17-2024 18:14-0400 Respiratory rate 16 /min Dr. Daija Morton MD Work Phone: 8(578)329-020942 [place] [address] 12-17-2024 18:14-0400 SaO2% (BldA) [Mass fraction] 99 % Dr. Daija Morton MD Work Phone: 9(222)519-159242 [place] [address] 12-17-2024 18:14-0400 Systolic blood pressure 197 mm[Hg] Dr. Daija Morton MD Work Phone: 6(528)347-917642 [place] [address] 12-17-2024 18:00-0400 Inhaled oxygen flow rate 2 L/min Dr. Daija Morton MD Work Phone: 6(824)810-762242 [place] [address] 12-17-2024 16:21-0400 Body height 172.[address] Daija Morton MD Work Phone: 4(931)584-392742 [place] [address] 12-17-2024 16:21-0400 Body mass index (BMI) [Ratio] 24.5 kg/m2 Dr. Daija Morton MD Work Phone: 5(897)541-713142 [place] [address] 12-17-2024 16:21-0400 Body weight [address] Daija Morton MD Work Phone: 4(041)906-875142 [place] [address] 12-16-2024 20:45-0400 Heart rate 76 /min Dr. Daija Morton MD Work Phone: 8(460)112-978242 [place] [address] 12-16-2024 20:45-0400 Respiratory rate 20 /min Dr. Daija Morton MD Work Phone: 3(100)661-506442 [place] [address] 12-16-2024 19:55-0400 Body temperature 98 [degF] Dr. Daija Morton MD Work Phone: 7(855)509-085942 [place] [address] 12-16-2024 19:55-0400 Diastolic blood pressure 72 mm[Hg] Dr. Daija Morton MD Work Phone: 5(256)032-417742 [place] [address] 12-16-2024 19:55-0400 Inhaled oxygen flow rate 2 L/min Dr. Daija Morton MD Work Phone: 1(912)567-378542 [place] [address] 12-16-2024 19:55-0400 SaO2% (BldA) [Mass fraction] 94 % Dr. Daija Morton MD Work Phone: 9(157)931-851042 [place] [address] 12-16-2024 19:55-0400 Systolic blood pressure 160 mm[Hg] Dr. Daija Morton MD Work Phone: 2(275)289-382642 [place] [address] 12-16-2024 03:13-0400 Body mass index (BMI) [Ratio] 23.4 kg/m2 Dr. Daija Morton MD Work Phone: 4(040)370-805642 [place] [address] 12-16-2024 03:13-0400 Body weight 70.[address] Daija Morton MD Work Phone: 1(518)010-870342 [place] [address] 12-14-2024 13:01-0400 Body height 172.[address] Daija Morton MD Work Phone: 2(725)409-257542 [place] [address] 12-13-2024 20:55-0400 Body temperature 98.3 [degF] Dr. Daija Morton MD Work Phone: 8(422)138-516742 [place] [address] 12-13-2024 20:55-0400 Diastolic blood pressure 73 mm[Hg] Dr. Daija Morton MD Work Phone: 6(575)923-165642 [place] [address] 12-13-2024 20:55-0400 Heart rate 65 /min Dr. Daija Morton MD Work Phone: 3(564)786-080542 [place] [address] 12-13-2024 20:55-0400 Respiratory rate 26 /min Dr. Daija Morton MD Work Phone: 2(735)675-409642 [place] [address] 12-13-2024 20:55-0400 SaO2% (BldA) [Mass fraction] 98 % Dr. Daija Morton MD Work Phone: 4(572)461-164642 [place] [address] 12-13-2024 20:55-0400 Systolic blood pressure 191 mm[Hg] Dr. Daija Morton MD Work Phone: 7(033)843-273642 [place] [address] 12-13-2024 18:10-0400 Inhaled oxygen flow rate 3.5 L/min Dr. Daija Morton MD Work Phone: 4(238)907-888242 [place] [address] 12-13-2024 17:46-0400 Body height 172.[address] Daija Morton MD Work Phone: [facility] 12-13-2024 17:46-0400 Body mass index (BMI) [Ratio] 24.3 kg/m2 Dr. Daija Morton MD Work Phone: [facility] 12-13-2024 17:46-0400 Body weight 72.[address] Daija Morton MD Work Phone: [facility] 12-12-2024 13:57-0400 Body mass index (BMI) [Ratio] 24.05 kg/m2 Anjel Older SENIOR DRUPAL DEVELOPER.GUIDE RAIL CLEANER Work Phone: [facility] 12-12-2024 13:57-0400 Body weight 71.76 kg Anjel Older SENIOR DRUPAL DEVELOPER.GUIDE RAIL CLEANER Work Phone: [facility] 12-12-2024 13:57-0400 Diastolic blood pressure 83 mm[Hg] Anjel Older SENIOR DRUPAL DEVELOPER.GUIDE RAIL CLEANER Work Phone: [facility] 12-12-2024 13:57-0400 Heart rate 65 /min Anjel Older SENIOR DRUPAL DEVELOPER.GUIDE RAIL CLEANER Work Phone: [facility] 12-12-2024 13:57-0400 Respiratory rate 20 /min Anjel Older SENIOR DRUPAL DEVELOPER.GUIDE RAIL CLEANER Work Phone: [facility] 12-12-2024 13:57-0400 SaO2% (BldA) [Mass fraction] 94 % Anjel Older SENIOR DRUPAL DEVELOPER.GUIDE RAIL CLEANER Work Phone: [facility] 12-12-2024 13:57-0400 Systolic blood pressure 185 mm[Hg] Anjel Older SENIOR DRUPAL DEVELOPER.GUIDE RAIL CLEANER Work Phone: [facility] 09-02-2024 20:48-0400 Heart rate 62 /min Dr. Daija Morton MD Work Phone: [facility] 09-02-2024 19:34-0400 Body temperature 97.5 [degF] Dr. Daija Morton MD Work Phone: [facility] 09-02-2024 19:34-0400 Diastolic blood pressure 77 mm[Hg] Dr. Daija Morton MD Work Phone: 9(931)657-233642 [place] [address] 09-02-2024 19:34-0400 Respiratory rate 16 /min Dr. Daija Morton MD Work Phone: 0(248)739-857942 [place] [address] 09-02-2024 19:34-0400 SaO2% (BldA) [Mass fraction] 92 % Dr. Daija Morton MD Work Phone: 9(064)162-043842 [place] [address] 09-02-2024 19:34-0400 Systolic blood pressure 146 mm[Hg] Dr. Daija Morton MD Work Phone: 9(498)019-345142 [place] [address] 09-02-2024 10:22-0400 Body height 172.[address] Daija Morton MD Work Phone: 4(955)849-846442 [place] [address] 09-02-2024 10:22-0400 Body weight 68.[address] Daija Morton MD Work Phone: 1(645)535-832642 [place] [address] 09-02-2024 06:00-0400 Body mass index (BMI) [Ratio] 22.8 kg/m2 Dr. Daija Morton MD Work Phone: 4(488)385-407442 [place] [address] 09-01-2024 22:41-0400 Inhaled oxygen flow rate 2 L/min Dr. Daija Morton MD Work Phone: 1(238)297-090142 [place] [address] 08-25-2024 18:11-0400 Diastolic blood pressure 90 mm[Hg] Dr. Daija Morton MD Work Phone: 5(525)195-325342 [place] [address] 08-25-2024 18:11-0400 Heart rate 66 /min Dr. Daija Morton MD Work Phone: 1(722)804-553942 [place] [address] 08-25-2024 18:11-0400 Respiratory rate 24 /min Dr. Daija Morton MD Work Phone: 9(192)509-417142 [place] [address] 08-25-2024 18:11-0400 SaO2% (BldA) [Mass fraction] 93 % Dr. Daija Morton MD Work Phone: 8(469)062-277542 [place] [address] 08-25-2024 18:11-0400 Systolic blood pressure 197 mm[Hg] Dr. Daija Morton MD Work Phone: [facility] 08-25-2024 16:12-0400 Body height 165.[address] Daija Morton MD Work Phone: [facility] 08-25-2024 16:12-0400 Body temperature 97.7 [degF] Dr. Daija Morton MD Work Phone: [facility] 03-23-2024 13:19-0400 Diastolic blood pressure 98 mm[Hg] Pura Praisler-Wood SENIOR DRUPAL DEVELOPER.GUIDE RAIL CLEANER Work Phone: [facility] 03-23-2024 13:19-0400 Systolic blood pressure 230 mm[Hg] Pura Praisler-Wood SENIOR DRUPAL DEVELOPER.GUIDE RAIL CLEANER Work Phone: [facility] 03-23-2024 13:12-0400 Body mass index (BMI) [Ratio] 20.92 kg/m2 Pura Praisler-Wood SENIOR DRUPAL DEVELOPER.GUIDE RAIL CLEANER Work Phone: [facility] 03-23-2024 13:12-0400 Body temperature 96.91 [degF] Pura Praisler-Wood SENIOR DRUPAL DEVELOPER.GUIDE RAIL CLEANER Work Phone: [facility] 03-23-2024 13:12-0400 Body weight 62.4 kg Pura Praisler-Wood SENIOR DRUPAL DEVELOPER.GUIDE RAIL CLEANER Work Phone: [facility] 03-23-2024 13:12-0400 Heart rate 74 /min Pura Praisler-Wood SENIOR DRUPAL DEVELOPER.GUIDE RAIL CLEANER Work Phone: [facility] 03-23-2024 13:12-0400 Respiratory rate 16 /min Pura Praisler-Wood SENIOR DRUPAL DEVELOPER.GUIDE RAIL CLEANER Work Phone: [facility] 11-21-2023 12:49-0400 Diastolic blood pressure 94 mm[Hg] Rebekah Bogner PA-C Work Phone: [facility] 11-21-2023 12:49-0400 Systolic blood pressure 200 mm[Hg] Rebekah Bogner PA-C Work Phone: [facility] 11-21-2023 12:42-0400 Body mass index (BMI) [Ratio] 22.96 kg/m2 Rebekah Bogner PA-C Work Phone: [facility] 11-21-2023 12:42-0400 Body weight 68.49 kg Rebekah Bogner PA-C Work Phone: [facility] 11-21-2023 12:42-0400 Heart rate 60 /min Rebekah Bogner PA-C Work Phone: [facility] 11-21-2023 12:42-0400 Respiratory rate 16 /min Rebekah Bogner PA-C Work Phone: [facility] 11-21-2023 12:42-0400 SaO2% (BldA) [Mass fraction] 92 % Rebekah Bogner PA-C Work Phone: [facility] 08-02-2023 19:35-0500 Inhaled oxygen flow rate 2 L/min Dr. Daija Morton Work Phone: [facility] 08-02-2023 19:27-0500 Body temperature 97.9 [degF] Dr. Daija Morton Work Phone: [facility] 08-02-2023 19:27-0500 Diastolic blood pressure 59 mm[Hg] Dr. Daija Morton Work Phone: [facility] 08-02-2023 19:27-0500 Heart rate 98 /min Dr. Daija Morton Work Phone: [facility] 08-02-2023 19:27-0500 Respiratory rate 16 /min Dr. Daija Morton Work Phone: [facility] 08-02-2023 19:27-0500 SaO2% (BldA) [Mass fraction] 93 % Dr. Daija Morton Work Phone: [facility] 08-02-2023 19:27-0500 Systolic blood pressure 149 mm[Hg] Dr. Daija Morton Work Phone: 2(103)261-276642 [place] [address] 07-31-2023 10:17-0500 Body height 172.[address] Daija Morton Work Phone: 0(683)123-503842 [place] [address] 07-31-2023 10:17-0500 Body weight 67.[address] Daija Morton Work Phone: 8(455)967-959542 [place] [address] 07-31-2023 00:57-0500 Body mass index (BMI) [Ratio] 22.4 kg/m2 Dr. Daija Morton Work Phone: 3(642)407-479042 [place] [address] 07-31-2023 00:05-0500 Body temperature 99 [degF] Dr. Daija Morton Work Phone: 9(355)401-738142 [place] [address] 07-31-2023 00:05-0500 Diastolic blood pressure 107 mm[Hg] Dr. Daija Morton Work Phone: 2(019)103-706642 [place] [address] 07-31-2023 00:05-0500 Heart rate 107 /min Dr. Daija Morton Work Phone: 8(862)604-387042 [place] [address] 07-31-2023 00:05-0500 Respiratory rate 30 /min Dr. Daija Morton Work Phone: 8(306)036-545542 [place] [address] 07-31-2023 00:05-0500 SaO2% (BldA) [Mass fraction] 98 % Dr. Daija Morton Work Phone: 5(962)698-005542 [place] [address] 07-31-2023 00:05-0500 Systolic blood pressure 173 mm[Hg] Dr. Daija Morton Work Phone: 7(833)909-512142 [place] [address] 07-30-2023 23:25-0500 Inhaled oxygen flow rate 3 L/min Dr. Daija Morton Work Phone: 6(345)487-732342 [place] [address] 07-30-2023 20:30-0500 Body height 172.[address] Daija Morton Work Phone: 8(833)823-721342 [place] [address] 07-30-2023 20:30-0500 Body mass index (BMI) [Ratio] 24.2 kg/m2 Dr. Daija Morton Work Phone: 5(236)001-066842 [place] [address] 07-30-2023 20:30-0500 Body weight 72.[address] Daija Morton Work Phone: 3(734)330-458642 [place] [address] 07-26-2023 12:10-0500 Diastolic blood pressure 59 mm[Hg] Dr. Daija Morton Work Phone: 4(613)453-853842 [place] [address] 07-26-2023 12:10-0500 Heart rate 67 /min Dr. Daija Morton Work Phone: 2(840)464-144042 [place] [address] 07-26-2023 12:10-0500 Respiratory rate 18 /min Dr. Daija Morton Work Phone: 7(639)708-021142 [place] [address] 07-26-2023 12:10-0500 SaO2% (BldA) [Mass fraction] 90 % Dr. Daija Morton Work Phone: 4(619)470-954342 [place] [address] 07-26-2023 12:10-0500 Systolic blood pressure 107 mm[Hg] Dr. Daija Morton Work Phone: 1(557)620-754542 [place] [address] 07-26-2023 08:38-0500 Body temperature 97.8 [degF] Dr. Daija Morton Work Phone: 6(124)087-841442 [place] [address] 07-26-2023 06:59-0500 Inhaled oxygen flow rate 2 L/min Dr. Daija Morton Work Phone: 9(279)492-946442 [place] [address] 07-25-2023 16:00-0500 Body weight 51.[address] Daija Morton Work Phone: 1(863)579-395742 [place] [address] 07-24-2023 21:55-0500 Body mass index (BMI) [Ratio] 17.4 kg/m2 Dr. Daija Morton Work Phone: 6(862)958-626542 [place] [address] 07-24-2023 21:13-0500 Diastolic blood pressure 89 mm[Hg] Dr. Daija Morton Work Phone: 9(028)187-388942 [place] [address] 07-24-2023 21:13-0500 Heart rate 65 /min Dr. Daija Morton Work Phone: 6(714)551-657142 [place] [address] 07-24-2023 21:13-0500 Respiratory rate 16 /min Dr. Daija Morton Work Phone: 5(852)485-745542 [place] [address] 07-24-2023 21:13-0500 SaO2% (BldA) [Mass fraction] 91 % Dr. Daija Morton Work Phone: 5(360)489-155942 [place] [address] 07-24-2023 21:13-0500 Systolic blood pressure 210 mm[Hg] Dr. Daija Morton Work Phone: 2(953)238-450842 [place] [address] 07-24-2023 17:27-0500 Body mass index (BMI) [Ratio] 22.8 kg/m2 Dr. Daija Morton Work Phone: 3(700)101-692042 [place] [address] 07-24-2023 17:27-0500 Body weight [address] Daija Morton Work Phone: 0(451)185-265942 [place] [address] 07-24-2023 16:44-0500 Body height 172.[address] Daija Morton Work Phone: 6(150)351-346242 [place] [address] 07-24-2023 16:44-0500 Body temperature 96.7 [degF] Dr. Daija Morton Work Phone: 9(077)900-439342 [place] [address] 04-04-2023 11:37-0400 Diastolic blood pressure 79 mm[Hg] Dr. Daija Mroton Work Phone: 1(735)301-294042 [place] [address] 04-04-2023 11:37-0400 Heart rate 44 /min Dr. Daija Morton Work Phone: 1(193)105-223442 [place] [address] 04-04-2023 11:37-0400 Systolic blood pressure 188 mm[Hg] Dr. Daija Morton Work Phone: 9(128)493-454242 [place] [address] 04-04-2023 10:02-0400 Body temperature 97.6 [degF] Dr. Daija Morton Work Phone: 6(966)156-935942 [place] [address] 04-04-2023 10:02-0400 Respiratory rate 18 /min Dr. Daija Morton Work Phone: 8(259)822-435042 [place] [address] 04-04-2023 10:02-0400 SaO2% (BldA) [Mass fraction] 92 % Dr. Daija Morton Work Phone: 9(457)656-612842 [place] [address] 04-03-2023 15:53-0400 Inhaled oxygen flow rate 2 L/min Dr. Daija Morton Work Phone: 9(113)837-032742 [place] [address] 03-31-2023 14:20-0400 Body mass index (BMI) [Ratio] 20.5 kg/m2 Dr. Daija Morton Work Phone: 5(532)163-779742 [place] [address] 03-31-2023 14:20-0400 Body weight [address] Daija Morton Work Phone: 9(078)390-754342 [place] [address] 03-31-2023 09:57-0400 Body height 175.[address] Daija Morton Work Phone: 6(728)868-436042 [place] [address] 03-30-2023 20:26-0400 Body temperature 96.7 [degF] Dr. Daija Morton Work Phone: 3(667)674-982242 [place] [address] 03-30-2023 20:26-0400 Diastolic blood pressure 78 mm[Hg] Dr. Daija Morton Work Phone: 6(678)432-983742 [place] [address] 03-30-2023 20:26-0400 Heart rate 71 /min Dr. Daija Morton Work Phone: 8(775)120-916342 [place] [address] 03-30-2023 20:26-0400 Respiratory rate 18 /min Dr. Daija Morton Work Phone: 2(952)507-263742 [place] [address] 03-30-2023 20:26-0400 SaO2% (BldA) [Mass fraction] 97 % Dr. Daija Morton Work Phone: 5(328)047-891242 [place] [address] 03-30-2023 20:26-0400 Systolic blood pressure 181 mm[Hg] Dr. Daija Morton Work Phone: 9(458)418-059242 [place] [address] 03-30-2023 14:10-0400 Body height 172.[address] Daija Morton Work Phone: 2(620)833-746242 [place] [address] 03-29-2023 19:22-0400 Body mass index (BMI) [Ratio] 21.9 kg/m2 Dr. Daija Morton Work Phone: 5(231)306-845242 [place] [address] 03-29-2023 19:22-0400 Body weight 65.[address] Daija Morton Work Phone: 2(817)737-572042 [place] [address] 03-29-2023 19:20-0400 Diastolic blood pressure 80 mm[Hg] Dr. Daija Morton Work Phone: 7(877)599-503542 [place] [address] 03-29-2023 19:20-0400 Heart rate 84 /min Dr. Daija Morton Work Phone: 6(017)024-940142 [place] [address] 03-29-2023 19:20-0400 Respiratory rate 18 /min Dr. Daija Morton Work Phone: 5(458)926-397742 [place] [address] 03-29-2023 19:20-0400 SaO2% (BldA) [Mass fraction] 92 % Dr. Daija Morton Work Phone: 3(816)556-658742 [place] [address] 03-29-2023 19:20-0400 Systolic blood pressure 195 mm[Hg] Dr. Daija Morton Work Phone: 8(082)851-237942 [place] [address] 03-29-2023 18:17-0400 Body temperature 97.6 [degF] Dr. Daija Morton Work Phone: 1(114)497-629742 [place] [address] 02-25-2023 19:41-0400 Diastolic blood pressure 87 mm[Hg] Dr. Daija Morton Work Phone: 4(257)674-009642 [place] [address] 02-25-2023 19:41-0400 Heart rate 67 /min Dr. Daija Morton Work Phone: 8(840)644-053242 [place] [address] 02-25-2023 19:41-0400 Respiratory rate 15 /min Dr. Daija Morton Work Phone: 1(192)892-731442 [place] [address] 02-25-2023 19:41-0400 SaO2% (BldA) [Mass fraction] 97 % Dr. Daija Morton Work Phone: 7(513)961-344242 [place] [address] 02-25-2023 19:41-0400 Systolic blood pressure 193 mm[Hg] Dr. Daija Morton Work Phone: [facility] 02-25-2023 19:37-0400 Body mass index (BMI) [Ratio] 22.4 kg/m2 Dr. Daija Morton Work Phone: [facility] 02-25-2023 19:37-0400 Body weight 67.[address] Daija Morton Work Phone: [facility] 02-25-2023 17:22-0400 Body temperature 97 [degF] Dr. Daija Morton Work Phone: [facility] 02-18-2023 01:56-0400 Diastolic blood pressure 113 mm[Hg] [facility] 02-18-2023 01:56-0400 Heart rate 88 /min [facility] 02-18-2023 01:56-0400 Respiratory rate 16 /min [facility] 02-18-2023 01:56-0400 Systolic blood pressure 157 mm[Hg] [facility] 02-18-2023 01:00-0400 SaO2% (BldA) [Mass fraction] 98 % [facility] 02-17-2023 21:35-0400 Body mass index (BMI) [Ratio] 21.5 kg/m2 [facility] 02-17-2023 21:35-0400 Body weight 66.13 kg [facility] 02-17-2023 21:32-0400 Body height 175.26 cm [facility] 02-17-2023 21:32-0400 Body temperature 96.4 [degF] [facility] 12-31-2022 15:16-0400 Body height 173 cm [facility] 12-31-2022 15:16-0400 Body mass index (BMI) [Ratio] 21.7 kg/m2 [facility] 12-31-2022 15:16-0400 Body temperature 96.6 [degF] [facility] 12-31-2022 15:16-0400 Body weight 65.2 kg [facility] 12-31-2022 15:16-0400 Diastolic blood pressure 66 mm[Hg] [facility] 12-31-2022 15:16-0400 Heart rate 75 /min [facility] 12-31-2022 15:16-0400 Respiratory rate 15 /min [facility] 12-31-2022 15:16-0400 SaO2% (BldA) [Mass fraction] 93 % [facility] 12-31-2022 15:16-0400 Systolic blood pressure 118 mm[Hg] [facility] 12-26-2022 14:04-0400 Diastolic blood pressure 90 mm[Hg] Ryan May MD Work Phone: [facility] 12-26-2022 14:04-0400 Heart rate 50 /min Ryan May MD Work Phone: [facility] 12-26-2022 14:04-0400 Systolic blood pressure 207 mm[Hg] Ryan May MD Work Phone: [facility] 10-22-2022 21:40-0400 Diastolic Blood Pressure Non-Invasive [address] PRIYANKA FRANCO MD [facility] 10-22-2022 21:40-0400 Heart rate 88 /min DR PRIYANKA FRANCO MD [facility] 10-22-2022 21:40-0400 Respiratory rate 20 /min DR PRIYANKA FRANCO MD [facility] 10-22-2022 21:40-0400 Systolic Blood Pressure Non-Invasive [address] PRIYANKA FRNACO MD [facility] 10-22-2022 19:59-[address] PRIYANKA FRANCO MD [facility] 10-22-2022 19:59-0400 Body temperature 98.6 [degF] DR PRIYANKA FRANCO MD [facility] 10-22-2022 19:59-0400 Diastolic Blood Pressure Non-Invasive [address] PRIYANKA FRANCO MD [facility] 10-22-2022 19:59-0400 Heart rate 97 /min DR PRIYANKA FRANCO MD [facility] 10-22-2022 19:59-0400 Respiratory rate 21 /min DR PRIYANKA FRANCO MD [facility] 10-22-2022 19:59-0400 Systolic Blood Pressure Non-Invasive [address] PRIYANKA FRANCO MD [facility] 10-21-2022 18:30-0400 Body height 172.72 cm [facility] 10-21-2022 18:30-0400 Body temperature 97.5 [degF] [facility] 10-21-2022 18:30-0400 Diastolic blood pressure 88 mm[Hg] [facility] 10-21-2022 18:30-0400 Heart rate 99 /min [facility] 10-21-2022 18:30-0400 Respiratory rate 16 /min [facility] 10-21-2022 18:30-0400 SaO2% (BldA) [Mass fraction] 96 % [facility] 10-21-2022 18:30-0400 Systolic blood pressure 168 mm[Hg] [facility] 08-27-2022 10:51-0500 Diastolic blood pressure 91 mm[Hg] Daija Morton MD Work Phone: [facility] 08-27-2022 10:51-0500 Heart rate 69 /min Daija Morton MD Work Phone: [facility] 08-27-2022 10:51-0500 Systolic blood pressure 212 mm[Hg] Daija Morton MD Work Phone: [facility] 08-27-2022 10:47-0500 Body temperature 97 [degF] Daija Morton MD Work Phone: [facility] 08-27-2022 10:47-0500 Body weight 71.22 kg Daija Morton MD Work Phone: [facility] 08-27-2022 10:47-0500 Respiratory rate 28 /min Daija Morton MD Work Phone: [facility] 08-27-2022 10:47-0500 SaO2% (BldA) [Mass fraction] 95 % Daija Morton MD Work Phone: [facility] 03-10-2022 10:10-0400 Diastolic blood pressure 90 mm[Hg] Anjel Older SENIOR DRUPAL DEVELOPER.GUIDE RAIL CLEANER Work Phone: [facility] 03-10-2022 10:10-0400 Heart rate 88 /min Anjel Older SENIOR DRUPAL DEVELOPER.GUIDE RAIL CLEANER Work Phone: [facility] 03-10-2022 10:10-0400 Respiratory rate 16 /min Anjel Older SENIOR DRUPAL DEVELOPER.GUIDE RAIL CLEANER Work Phone: [facility] 03-10-2022 10:10-0400 Systolic blood pressure 158 mm[Hg] Anjel Older SENIOR DRUPAL DEVELOPER.GUIDE RAIL CLEANER Work Phone: [facility] 03-08-2022 23:13-0400 Diastolic blood pressure 93 mm[Hg] Dr. Daija Morton Work Phone: [facility] Work Phone: 03-08-2022 23:13-0400 Heart rate 71 /min Dr. Daija Morton Work Phone: [facility] Work Phone: 03-08-2022 23:13-0400 Inhaled oxygen flow rate 3 L/min Dr. Daija Morton Work Phone: [facility] Work Phone: 03-08-2022 23:13-0400 Respiratory rate 16 /min Dr. Daija Morton Work Phone: [facility] Work Phone: 03-08-2022 23:13-0400 SaO2% (BldA) [Mass fraction] 96 % Dr. Daija Morton Work Phone: [facility] Work Phone: 03-08-2022 23:13-0400 Systolic blood pressure 178 mm[Hg] Dr. Daija Morton Work Phone: [facility] Work Phone: 03-08-2022 17:31-0400 Body height 172.[address] Daija Morton Work Phone: [facility] Work Phone: 03-08-2022 17:31-0400 Body mass index (BMI) [Ratio] 20.5 kg/m2 Dr. Daija Motron Work Phone: [facility] Work Phone: 03-08-2022 17:31-0400 Body temperature 97.6 [degF] Dr. Daija Morton Work Phone: [facility] Work Phone: 03-08-2022 17:31-0400 Body weight 61.[address] Daija Morton Work Phone: [facility] Work Phone: 03-07-2022 17:28-0400 Respiratory rate 18 /min Dr. Daija Morton Work Phone: [facility] Work Phone: 03-07-2022 15:23-0400 Body height 172.[address] Daija Morton Work Phone: [facility] Work Phone: 03-07-2022 15:23-0400 Body mass index (BMI) [Ratio] 20.5 kg/m2 Dr. Daija Morton Work Phone: [facility] Work Phone: 03-07-2022 15:23-0400 Body temperature 97.4 [degF] Dr. Daija Morton Work Phone: [facility] Work Phone: 03-07-2022 15:23-0400 Body weight 61.[address] Daija Morton Work Phone: [facility] Work Phone: 03-07-2022 15:23-0400 Diastolic blood pressure 88 mm[Hg] Dr. Daija Morton Work Phone: [facility] Work Phone: 03-07-2022 15:23-0400 Heart rate 84 /min Dr. Daija Morton Work Phone: [facility] Work Phone: 03-07-2022 15:23-0400 SaO2% (BldA) [Mass fraction] 93 % Dr. Daija Morton Work Phone: [facility] Work Phone: 03-07-2022 15:23-0400 Systolic blood pressure 193 mm[Hg] Dr. Daija Morton Work Phone: [facility] Work Phone: 03-02-2022 19:05-0400 Diastolic blood pressure 81 mm[Hg] Dr. Daija Morton Work Phone: [facility] Work Phone: 03-02-2022 19:05-0400 Heart rate 56 /min Dr. Daija Morton Work Phone: [facility] Work Phone: 03-02-2022 19:05-0400 Respiratory rate 18 /min Dr. Daija Morton Work Phone: [facility] Work Phone: 03-02-2022 19:05-0400 SaO2% (BldA) [Mass fraction] 92 % Dr. Daija Morton Work Phone: [facility] Work Phone: 03-02-2022 19:05-0400 Systolic blood pressure 209 mm[Hg] Dr. Daija Morton Work Phone: [facility] Work Phone: 03-02-2022 17:41-0400 Body temperature 97.5 [degF] Dr. Daija Morton Work Phone: [facility] Work Phone: 03-02-2022 15:10-0400 Body height 172.[address] Daija Morton Work Phone: [facility] Work Phone: 03-02-2022 15:10-0400 Body mass index (BMI) [Ratio] 23.5 kg/m2 Dr. Daija Morton Work Phone: [facility] Work Phone: 03-02-2022 15:10-0400 Body weight 70.[address] Daija Morton Work Phone: [facility] Work Phone: 01-31-2022 13:59-0400 Body height 172.7 cm Ryan May MD Work Phone: [facility] 01-31-2022 13:59-0400 Body weight 68.49 kg Ryan May MD Work Phone: [facility] 01-31-2022 13:59-0400 Diastolic blood pressure 99 mm[Hg] Ryan May MD Work Phone: [facility] 01-31-2022 13:59-0400 Systolic blood pressure 168 mm[Hg] Ryan May MD Work Phone: [facility] 01-28-2022 15:53-0400 Diastolic blood pressure 88 mm[Hg] Dr. Daija Morton Work Phone: [facility] Work Phone: 01-28-2022 15:53-0400 Heart rate 54 /min Dr. Daija Morton Work Phone: [facility] Work Phone: 01-28-2022 15:53-0400 Respiratory rate 20 /min Dr. Daija Morton Work Phone: [facility] Work Phone: 01-28-2022 15:53-0400 SaO2% (BldA) [Mass fraction] 97 % Dr. Daija Morton Work Phone: [facility] Work Phone: 01-28-2022 15:53-0400 Systolic blood pressure 200 mm[Hg] Dr. Daija Morton Work Phone: [facility] Work Phone: 01-28-2022 14:03-0400 Body height 172.[address] Daija Morton Work Phone: [facility] Work Phone: 01-28-2022 14:03-0400 Body mass index (BMI) [Ratio] 22.9 kg/m2 Dr. Daija Morton Work Phone: [facility] Work Phone: 01-28-2022 14:03-0400 Body temperature 96.8 [degF] Dr. Daija Morton Work Phone: [facility] Work Phone: 01-28-2022 14:03-0400 Body weight 68.[address] Daija Morton Work Phone: [facility] Work Phone: 01-28-2022 11:41-0400 Diastolic blood pressure 92 mm[Hg] Anjel Older SENIOR DRUPAL DEVELOPER.GUIDE RAIL CLEANER Work Phone: [facility] 01-28-2022 11:41-0400 Heart rate 56 /min Anjel Older SENIOR DRUPAL DEVELOPER.GUIDE RAIL CLEANER Work Phone: [facility] 01-28-2022 11:41-0400 Systolic blood pressure 200 mm[Hg] Anjel Older SENIOR DRUPAL DEVELOPER.GUIDE RAIL CLEANER Work Phone: [facility] 01-28-2022 10:57-0400 Body weight 68.49 kg Anjel Older SENIOR DRUPAL DEVELOPER.GUIDE RAIL CLEANER Work Phone: [facility] 01-28-2022 10:57-0400 Respiratory rate 16 /min Anjel Braga SENIOR DRUPAL DEVELOPER.GUIDE RAIL CLEANER Work Phone: [facility] 01-20-2022 13:23-0400 Diastolic blood pressure 102 mm[Hg] Ye Coello MD Work Phone: [facility] 01-20-2022 13:23-0400 Heart rate 61 /min Ye Coello MD Work Phone: [facility] 01-20-2022 13:23-0400 SaO2% (BldA) [Mass fraction] 94 % Ye Coello MD Work Phone: [facility] 01-20-2022 13:23-0400 Systolic blood pressure 172 mm[Hg] Ye Coello MD Work Phone: [facility] 01-14-2022 10:26-0400 Body temperature 98.2 [degF] Harriett Albert SENIOR DRUPAL DEVELOPER.ARTIFICIAL BREAST FABRICATOR Work Phone: [facility] 01-14-2022 10:26-0400 Body weight 69.67 kg Harriett Albert SENIOR DRUPAL DEVELOPER.ARTIFICIAL BREAST FABRICATOR Work Phone: [facility] 01-14-2022 10:26-0400 Diastolic blood pressure 80 mm[Hg] Harriett Albert SENIOR DRUPAL DEVELOPER.ARTIFICIAL BREAST FABRICATOR Work Phone: [facility] 01-14-2022 10:26-0400 Heart rate 78 /min Harriett Albert SENIOR DRUPAL DEVELOPER.ARTIFICIAL BREAST FABRICATOR Work Phone: [facility] 01-14-2022 10:26-0400 Respiratory rate 16 /min Harriett Albert SENIOR DRUPAL DEVELOPER.ARTIFICIAL BREAST FABRICATOR Work Phone: [facility] 01-14-2022 10:26-0400 SaO2% (BldA) [Mass fraction] 95 % Harriett Albert SENIOR DRUPAL DEVELOPER.ARTIFICIAL BREAST FABRICATOR Work Phone: [facility] 01-14-2022 10:26-0400 Systolic blood pressure 186 mm[Hg] Harriett Labert SENIOR DRUPAL DEVELOPER.ARTIFICIAL BREAST FABRICATOR Work Phone: [facility] 11-30-2021 15:02-0400 Heart rate 75 /min Dr. Daija Morton Work Phone: [facility] Work Phone: 11-30-2021 15:02-0400 Respiratory rate 17 /min Dr. Daija Morton Work Phone: [facility] Work Phone: 11-30-2021 13:57-0400 Body temperature 97.4 [degF] Dr. Daija Morton Work Phone: [facility] Work Phone: 11-30-2021 13:57-0400 Diastolic blood pressure 67 mm[Hg] Dr. Daija Morton Work Phone: [facility] Work Phone: 11-30-2021 13:57-0400 SaO2% (BldA) [Mass fraction] 93 % Dr. Daija Morton Work Phone: [facility] Work Phone: 11-30-2021 13:57-0400 Systolic blood pressure 161 mm[Hg] Dr. Daija Morton Work Phone: [facility] Work Phone: 11-30-2021 11:25-0400 Inhaled oxygen flow rate 3 L/min Dr. Daija Morton Work Phone: [facility] Work Phone: 11-29-2021 12:48-0400 Body height 172.[address] Daija Morton Work Phone: [facility] Work Phone: 11-29-2021 12:48-0400 Body weight 71.[address] Daija Morton Work Phone: [facility] Work Phone: 11-27-2021 05:25-0400 Body mass index (BMI) [Ratio] 24 kg/m2 Dr. Daija Morton Work Phone: [facility] Work Phone: 11-25-2021 21:36-0400 Body temperature 97.8 [degF] Dr. Daija Morton Work Phone: [facility] Work Phone: 11-25-2021 21:36-0400 Diastolic blood pressure 40 mm[Hg] Dr. Daija Morton Work Phone: [facility] Work Phone: 11-25-2021 21:36-0400 Heart rate 66 /min Dr. Daija Morton Work Phone: [facility] Work Phone: 11-25-2021 21:36-0400 Respiratory rate 16 /min Dr. Daija Morton Work Phone: [facility] Work Phone: 11-25-2021 21:36-0400 SaO2% (BldA) [Mass fraction] 96 % Dr. Daija Morton Work Phone: [facility] Work Phone: 11-25-2021 21:36-0400 Systolic blood pressure 133 mm[Hg] Dr. Daija Morton Work Phone: [facility] Work Phone: 11-25-2021 17:29-0400 Body height 172.[address] Daija Morton Work Phone: [facility] Work Phone: 11-25-2021 17:29-0400 Body mass index (BMI) [Ratio] 24.7 kg/m2 Dr. Daija Morton Work Phone: [facility] Work Phone: 11-25-2021 17:29-0400 Body weight 73.[address] Daija Morton Work Phone: [facility] Work Phone: 11-16-2021 14:37-0400 Body height 172.7 cm Estephaniajuice Pierre SENIOR DRUPAL DEVELOPER.GUIDE RAIL CLEANER Work Phone: [facility] 11-16-2021 14:37-0400 Body weight 71.67 kg Estephania Ignacio SENIOR DRUPAL DEVELOPER.GUIDE RAIL CLEANER Work Phone: [facility] 11-16-2021 14:37-0400 Diastolic blood pressure 68 mm[Hg] Estephania Pierre SENIOR DRUPAL DEVELOPER.GUIDE RAIL CLEANER Work Phone: [facility] 11-16-2021 14:37-0400 Heart rate 64 /min Estephaniajuice Pierre SENIOR DRUPAL DEVELOPER.GUIDE RAIL CLEANER Work Phone: [facility] 11-16-2021 14:37-0400 SaO2% (BldA) [Mass fraction] 100 % Estephaniajuice Pierre SENIOR DRUPAL DEVELOPER.GUIDE RA[employer] CLEANER Work Phone: [facility] 11-16-2021 14:37-0400 Systolic blood pressure 162 mm[Hg] Estephaniajuice Pierre SENIOR DRUPAL DEVELOPER.GUIDE RA[employer] CLEANER Work Phone: [facility] 11-08-2021 12:50-0400 Heart rate 73 /min Respiratory Wstr Work Phone: [facility] 11-08-2021 12:50-0400 Respiratory rate 14 /min Respiratory Wstr Work Phone: [facility] 11-08-2021 12:50-0400 SaO2% (BldA) [Mass fraction] 97 % Respiratory Wstr Work Phone: [facility] 11-05-2021 11:22-0400 Body weight 70.31 kg Emilie Shania PA-C Work Phone: [facility] 11-05-2021 11:22-0400 Diastolic blood pressure 68 mm[Hg] Emilie Shania PA-C Work Phone: [facility] 11-05-2021 11:22-0400 Heart rate 71 /min Emilie Shania PA-C Work Phone: [facility] 11-05-2021 11:22-0400 Respiratory rate 20 /min Emilie Shania PA-C Work Phone: [facility] 11-05-2021 11:22-0400 SaO2% (BldA) [Mass fraction] 99 % Emilie Shania PA-C Work Phone: [facility] 11-05-2021 11:22-0400 Systolic blood pressure 140 mm[Hg] Emilie Shania PA-C Work Phone: [facility] 10-21-2021 11:30-0400 Diastolic blood pressure 65 mm[Hg] Mi Nurse Work Phone: [facility] 10-21-2021 11:30-0400 Heart rate 81 /min Mi Nurse Work Phone: [facility] 10-21-2021 11:30-0400 Systolic blood pressure 155 mm[Hg] Mi Nurse Work Phone: [facility] 10-13-2021 13:00-0400 Body height 172.7 cm Ye Coello MD Work Phone: [facility] 10-13-2021 13:00-0400 Body weight 71.67 kg Ye Coello MD Work Phone: [facility] 10-13-2021 13:00-0400 Diastolic blood pressure 93 mm[Hg] Ye Coello MD Work Phone: [facility] 10-13-2021 13:00-0400 Heart rate 66 /min Ye Coello MD Work Phone: [facility] 10-13-2021 13:00-0400 Systolic blood pressure 217 mm[Hg] Ye Coello MD Work Phone: [facility] 10-08-2021 17:14-0400 Diastolic blood pressure 62 mm[Hg] Dr. Daija Morton Work Phone: [facility] Work Phone: 10-08-2021 17:14-0400 Heart rate 58 /min Dr. Daija Morton Work Phone: [facility] Work Phone: 10-08-2021 17:14-0400 Respiratory rate 18 /min Dr. Daija Morton Work Phone: [facility] Work Phone: 10-08-2021 17:14-0400 SaO2% (BldA) [Mass fraction] 98 % Dr. Daija Morton Work Phone: [facility] Work Phone: 10-08-2021 17:14-0400 Systolic blood pressure 149 mm[Hg] Dr. Daija Morton Work Phone: [facility] Work Phone: 10-08-2021 14:12-0400 Body height 172.[address] Daija Morton Work Phone: [facility] Work Phone: 10-08-2021 14:12-0400 Body mass index (BMI) [Ratio] 24.7 kg/m2 Dr. Daija Morton Work Phone: [facility] Work Phone: 10-08-2021 14:12-0400 Body temperature 98.1 [degF] Dr. Daija Morton Work Phone: [facility] Work Phone: 10-08-2021 14:12-0400 Body weight 73.[address] Daija Morton Work Phone: [facility] Work Phone: 10-07-2021 11:17-0400 Body temperature 97.59 [degF] Anjel Older SENIOR DRUPAL DEVELOPER.GUIDE RAIL CLEANER Work Phone: [facility] 10-07-2021 11:17-0400 Body weight 70.31 kg Anjel Older SENIOR DRUPAL DEVELOPER.GUIDE RAIL CLEANER Work Phone: [facility] 10-07-2021 11:17-0400 Diastolic blood pressure 90 mm[Hg] Anjel Older SENIOR DRUPAL DEVELOPER.GUIDE RAIL CLEANER Work Phone: [facility] 10-07-2021 11:17-0400 Heart rate 67 /min Anjel Older SENIOR DRUPAL DEVELOPER.GUIDE RAIL CLEANER Work Phone: [facility] 10-07-2021 11:17-0400 Respiratory rate 12 /min Anjel Older SENIOR DRUPAL DEVELOPER.GUIDE RAIL CLEANER Work Phone: [facility] 10-07-2021 11:17-0400 SaO2% (BldA) [Mass fraction] 96 % Anjel Older SENIOR DRUPAL DEVELOPER.GUIDE RAIL CLEANER Work Phone: [facility] 10-07-2021 11:17-0400 Systolic blood pressure 178 mm[Hg] Anjel Older SENIOR DRUPAL DEVELOPER.GUIDE RAIL CLEANER Work Phone: [facility] 09-29-2021 16:20-0400 Body temperature 98.24 [degF] DR PRIYANKA FRANCO MD [facility] 09-29-2021 16:20-0400 Diastolic blood pressure 91 mm[Hg] DR PRIYANKA FRANCO MD [facility] 09-29-2021 16:20-0400 Heart rate 80 /min DR PRIYANKA FRANCO MD [facility] 09-29-2021 16:20-0400 Respiratory rate 18 /min DR PRIYANKA FRANCO MD [facility] 09-29-2021 16:20-0400 Systolic blood pressure 189 mm[Hg] DR PRIYANKA FRANCO MD [facility] 09-17-2021 20:16-0400 Body temperature 97.3 [degF] Dr. Daija Morton Work Phone: [facility] Work Phone: 09-17-2021 20:16-0400 Diastolic blood pressure 80 mm[Hg] Dr. Daija Morton Work Phone: [facility] Work Phone: 09-17-2021 20:16-0400 Heart rate 85 /min Dr. Daija Morton Work Phone: [facility] Work Phone: 09-17-2021 20:16-0400 Respiratory rate 17 /min Dr. Daija Morton Work Phone: [facility] Work Phone: 09-17-2021 20:16-0400 SaO2% (BldA) [Mass fraction] 96 % Dr. Daija Morton Work Phone: [facility] Work Phone: 09-17-2021 20:16-0400 Systolic blood pressure 171 mm[Hg] Dr. Daija Morton Work Phone: [facility] Work Phone: 09-17-2021 16:56-0400 Body height 172.[address] Daija Morton Work Phone: [facility] Work Phone: 09-17-2021 16:56-0400 Body mass index (BMI) [Ratio] 23.7 kg/m2 Dr. Daija Morton Work Phone: [facility] Work Phone: 09-17-2021 16:56-0400 Body weight 70.[address] Daija Morton Work Phone: [facility] Work Phone: 09-15-2021 17:40-0400 Diastolic blood pressure 73 mm[Hg] Anjel Older SENIOR DRUPAL DEVELOPER.GUIDE RAIL CLEANER Work Phone: [facility] 09-15-2021 17:40-0400 Systolic blood pressure 170 mm[Hg] Anjel Older SENIOR DRUPAL DEVELOPER.GUIDE RAIL CLEANER Work Phone: [facility] 09-15-2021 16:57-0400 Body weight 71.22 kg Anjel Older SENIOR DRUPAL DEVELOPER.GUIDE RAIL CLEANER Work Phone: [facility] 09-15-2021 16:57-0400 Heart rate 68 /min Anjel Older SENIOR DRUPAL DEVELOPER.GUIDE RAIL CLEANER Work Phone: [facility] 09-15-2021 16:57-0400 Respiratory rate 16 /min Anjel Older SENIOR DRUPAL DEVELOPER.GUIDE RAIL CLEANER Work Phone: [facility] 09-15-2021 16:18-0400 Body height 172.7 cm Kaye Ortega MD Work Phone: [facility] 09-15-2021 16:18-0400 Body temperature 97.39 [degF] Kaye Ortega MD Work Phone: [facility] 09-15-2021 16:18-0400 Body weight 71.67 kg Kaye Ortega MD Work Phone: [facility] 09-15-2021 16:18-0400 Diastolic blood pressure 72 mm[Hg] Kaye Ortega MD Work Phone: [facility] 09-15-2021 16:18-0400 Heart rate 78 /min Kaye Ortega MD Work Phone: [facility] 09-15-2021 16:18-0400 SaO2% (BldA) [Mass fraction] 96 % Kaye Ortega MD Work Phone: [facility] 09-15-2021 16:18-0400 Systolic blood pressure 138 mm[Hg] Kaye Ortega MD Work Phone: [facility] 08-21-2021 09:30-0500 Body temperature 97.6 [degF] Dr. Daija Morton Work Phone: [facility] Work Phone: 08-21-2021 09:30-0500 Diastolic blood pressure 69 mm[Hg] Dr. Daija Morton Work Phone: [facility] Work Phone: 08-21-2021 09:30-0500 Heart rate 61 /min Dr. Daija Morton Work Phone: [facility] Work Phone: 08-21-2021 09:30-0500 Inhaled oxygen flow rate 3 L/min Dr. Daija Morton Work Phone: [facility] Work Phone: 08-21-2021 09:30-0500 Respiratory rate 18 /min Dr. Daija Morton Work Phone: [facility] Work Phone: 08-21-2021 09:30-0500 SaO2% (BldA) [Mass fraction] 98 % Dr. Daija Morton Work Phone: [facility] Work Phone: 08-21-2021 09:30-0500 Systolic blood pressure 183 mm[Hg] Dr. Daija Morton Work Phone: [facility] Work Phone: 08-21-2021 08:30-0500 Body temperature 97.6 [degF] Dr. Daija Morton Work Phone: [facility] Work Phone: 08-21-2021 08:30-0500 Diastolic blood pressure 69 mm[Hg] Dr. Daija Morton Work Phone: [facility] Work Phone: 08-21-2021 08:30-0500 Heart rate 61 /min Dr. Daija Morton Work Phone: [facility] Work Phone: 08-21-2021 08:30-0500 Respiratory rate 18 /min Dr. Daija Morton Work Phone: [facility] Work Phone: 08-21-2021 08:30-0500 SaO2% (BldA) [Mass fraction] 98 % Dr. Daija Morton Work Phone: [facility] Work Phone: 08-21-2021 08:30-0500 Systolic blood pressure 183 mm[Hg] Dr. Daija Morton Work Phone: [facility] Work Phone: 08-20-2021 06:18-0500 Body mass index (BMI) [Ratio] 23.7 kg/m2 Dr. Daija Morton Work Phone: [facility] Work Phone: 08-20-2021 06:18-0500 Body weight [address] Daija Morton Work Phone: [facility] Work Phone: 08-20-2021 05:18-0500 Body mass index (BMI) [Ratio] 23.7 kg/m2 Dr. Daija Morton Work Phone: [facility] Work Phone: 08-20-2021 05:18-0500 Body weight [address] Daija Morton Work Phone: [facility] Work Phone: 08-12-2021 03:26-0500 Diastolic blood pressure 89 mm[Hg] Dr. Daija Morton Work Phone: [facility] Work Phone: 08-12-2021 03:26-0500 Heart rate 70 /min Dr. Daija Morton Work Phone: [facility] Work Phone: 08-12-2021 03:26-0500 Respiratory rate 18 /min Dr. Daija Morton Work Phone: [facility] Work Phone: 08-12-2021 03:26-0500 SaO2% (BldA) [Mass fraction] 93 % Dr. Daija Morton Work Phone: [facility] Work Phone: 08-12-2021 03:26-0500 Systolic blood pressure 211 mm[Hg] Dr. Daija Morton Work Phone: [facility] Work Phone: 08-11-2021 23:32-0500 Body mass index (BMI) [Ratio] 24.8 kg/m2 Dr. Daija Morton Work Phone: [facility] Work Phone: 08-11-2021 23:32-0500 Body temperature 97.5 [degF] Dr. Daija Morton Work Phone: [facility] Work Phone: 08-11-2021 23:32-0500 Body weight 74.[address] Daija Morton Work Phone: [facility] Work Phone: 06-12-2021 15:55-0500 Diastolic blood pressure 81 mm[Hg] Dr. Daija Morton Work Phone: [facility] Work Phone: 06-12-2021 15:55-0500 Heart rate 61 /min Dr. Daija Morton Work Phone: [facility] Work Phone: 06-12-2021 15:55-0500 Systolic blood pressure 182 mm[Hg] Dr. Daija Morton Work Phone: [facility] Work Phone: 06-12-2021 15:15-0500 Body mass index (BMI) [Ratio] 24.6 kg/m2 Dr. Daija Morton Work Phone: [facility] Work Phone: 06-12-2021 15:15-0500 Body temperature 96.8 [degF] Dr. Daija Morton Work Phone: [facility] Work Phone: 06-12-2021 15:15-0500 Body weight 73.[address] Daija Morton Work Phone: [facility] Work Phone: 06-12-2021 15:15-0500 Respiratory rate 18 /min Dr. Daija Morton Work Phone: [facility] Work Phone: 06-12-2021 15:15-0500 SaO2% (BldA) [Mass fraction] 96 % Dr. Daija Morton Work Phone: [facility] Work Phone: 06-04-2021 23:37-0500 Respiratory rate 18 /min Dr. Daija Morton Work Phone: [facility] Work Phone: 06-04-2021 22:01-0500 Body mass index (BMI) [Ratio] 23.6 kg/m2 Dr. Daija Morton Work Phone: [facility] Work Phone: 06-04-2021 22:01-0500 Body temperature 97.1 [degF] Dr. Daija Morton Work Phone: [facility] Work Phone: 06-04-2021 22:01-0500 Body weight 70.[address] Daija Morton Work Phone: [facility] Work Phone: 06-04-2021 22:01-0500 Diastolic blood pressure 99 mm[Hg] Dr. Daija Morton Work Phone: [facility] Work Phone: 06-04-2021 22:01-0500 Heart rate 87 /min Dr. Daija Morton Work Phone: [facility] Work Phone: 06-04-2021 22:01-0500 SaO2% (BldA) [Mass fraction] 97 % Dr. Daija Morton Work Phone: [facility] Work Phone: 06-04-2021 22:01-0500 Systolic blood pressure 202 mm[Hg] Dr. Daija Morton Work Phone: [facility] Work Phone: Encounters Encounter Date Encounter Type Care Provider Facility Start: 03-18-2025 End: 03-18-2025 Emergency department patient visit MAGDALENE POWELL DO [facility] Start: 03-14-2025 End: 03-14-2025 ambulatory Efewongbe Oleghe Facility:[facility] Start: 03-14-2025 End: 03-14-2025 Emergency department patient visit Efroeongbe Suzye Facility:[facility] Start: 03-13-2025 End: 03-13-2025 ambulatory Josefa Doss MACHINE PRINTER HOSE Facility:[facility] [place] Start: 03-11-2025 ambulatory Efewongbe Oleghe OLS Fa cility:[facility] Start: 03-04-2025 ambulatory Efewongbe Oleghe Facili ty:[facility] Start: 02-25-2025 ambulatory Efewongbe Oleghe OLS Fa cility:[facility] Start: 02-24-2025 End: 02-24-2025 ambulatory Josefa Doss MACHINE PRINTER HOSE Facility:[facility] [place] Start: 02-18-2025 ambulatory Efewongbe Oleghe OLS Fa cility:[facility] Start: 02-18-2025 Lorraine Ashton - [place] Start: 02-11-2025 ambulatory Efewongbe Oleghe OLS Fa cility:[facility] Start: 02-11-2025 Lorraine Ashton - [place] Start: 02-09-2025 ambulatory Efewongbe Oleghe OLS Fa cility:[facility] Start: 02-09-2025 Lorraine Ashton - [place] Start: 02-04-2025 End: 02-04-[address] Daija Morton MD Work Phone: -[facility] Start: 02-04-2025 End: 02-04-2025 Josefa Doss MACHINE PRINTER HOSE-C -[facility] [place] Work Phone: Start: 02-03-2025 ambulatory Efewongbe Oleghe OLS Fa cility:[facility] Start: 02-03-2025 Lorraine Johns Start: 01-27-2025 ambulatory Efml Mena OLS Fa cility:[facility] Start: 01-27-2025 Lorraine Johns Start: 01-23-2025 End: 01-23-2025 Hannah Busch MACHINE PRINTER HOSEAshtyn -[facility] Work Phone: Start: 01-23-2025 End: 01-23-[address] Daija Morton MD Work Phone: -[facility] Start: 01-21-2025 End: 01-21-2025 Mackenzie SALDIVAR -[facility] Work Phone: Start: 01-21-2025 End: 01-21-[address] Daija Morton MD Work Phone: -[facility] Start: 01-20-2025 ambulatory Lorraine RAIN Fa cility:[facility] Start: 01-20-2025 Lorraine Johns Start: 01-17-2025 End: 01-17-2025 Refill Daija Morton MD Work Phone: [facility] [place] Comment on above: Refill Request Start: 01-13-2025 ambulatory Lorraine RAIN Fa cility:[facility] Start: 01-13-2025 Lorraine Johns Start: 01-09-2025 End: 01-09-[address] Daija Morton MD Work Phone: -[facility] Start: 01-09-2025 End: 01-09-2025 Josefa CORTEZ -[facility] [place] [place] Work Phone: Start: 01-08-2025 Dr. [facility] Work Phone: Start: 01-07-2025 Dr. [facility] Work Phone: Start: 01-07-2025 Paulino Brussels DO -[facility] Start: 01-06-2025 ambulatory Lorraine Mena Facili ty:[facility] Start: 01-06-2025 Paulino Friend DO -[facility] Start: 01-05-2025 End: 01-05-2025 ambulatory Efml Almontee Facility:[facility] Start: 01-05-2025 End: 01-05-2025 Dr. Geronimo Downey MD -[place] [facility] Work Phone: Start: 01-05-2025 Paulino Brussels DO -[facility] Start: 01-05-2025 End: 01-08-2025 ambulatory [...] Dr. Daija Morton MD Work Phone: -[facility] Start: 12-31-2024 End: 12-31-2024 Dr. Lorraine Mena MD -[facility] Work Phone: Start: 12-31-2024 ambulatory Lorraine Mena OLS Fa cility:[facility] Start: 12-31-2024 Lorraine Mena MD [facility] Start: 12-30-2024 ambulatory Lorraine Mena OLS Fa cility:[facility] Start: 12-30-2024 Lorraine Mena MD -[facility] [place] Start: 12-27-2024 End: 12-27-[address] Daija Morton MD Work Phone: -[facility] Start: 12-27-2024 End: 12-27-2024 Josefa Doss MACHINE PRINTER HOSE-C -[facility] Work Phone: Start: 12-26-2024 End: 12-26-2024 Follow-up encounter Anjel Omi YANGN.GUIDE RAIL CLEANER Work Phone: [facility] [place] Start: 12-26-2024 Dr. Shilpa edwards MD -[facility] Work Phone: Start: 12-25-2024 Dr. Shilpa edwards MD -[facility] Work Phone: Start: 12-24-2024 Paulinojoann Henderson [facility] Start: 12-24-2024 Dr. Shilpa edwards MD -[facility] Work Phone: Start: 12-23-2024 Paulino [facility] Start: 12-23-2024 [facility] Start: 12-23-2024 Dr. Raul Jensen MD -[facility] -[facility] Start: 12-23-2024 Dr. Shilpa edwards MD -[facility] Work Phone: Start: 12-22-2024 Dr. Lisha Talamantes DO -[facility] Work Phone: Start: 12-21-2024 Dr. Lisha Talamantes DO -[facility] Work Phone: Start: 12-20-2024 Dr. Lisha Talamantes DO -[facility] Work Phone: Start: 12-19-2024 Dr. Lisha Talamantes DO -[facility] Work Phone: Start: 12-18-2024 ambulatory [facility] Start: 12-18-2024 End: 12-26-2024 Evaluation and management of inpatient Dr. Daija Morton MD Work Phone: -[facility] Start: 12-18-2024 End: 12-26-2024 Dr. Shilpa Contreras MD -[facility] Work Phone: Start: 12-18-2024 ambulatory Milton Guajardo Facility:[facility] Start: 12-18-2024 Dr. Milton Guajardo MD -[facility] Start: 12-17-[address] Germain Morton MD Work Phone: -[facility] Start: 12-17-2024 Dr. Roman Patel DO -[facility] Work Phone: Start: 12-17-2024 End: 12-20-2024 ambulatory Daija Morton MD Work Phone: [facility] [place] [id number] Start: 12-17-2024 End: 12-24-2024 Telephone encounter Daija Morton MD Work Phone: [facility] [place] Comment on above: Patient Update Start: 12-16-2024 End: 12-17-2024 Refill Daija Morton MD Work Phone: [facility] [place] Comment on above: Refill Request SOB (shortness of br eath) (Primary Dx) Start: 12-16-2024 Dr. Lisha Talamantes DO -[facility] Work Phone: Start: 12-15-2024 Dr. Lisha Talamantes DO -[facility] Work Phone: Start: 12-14-2024 Dr. Lisha Talamantes DO -[facility] Work Phone: Start: 12-13-2024 Non-patient / Non-visit Dr. Kisha Contreras MD -[facility] Work Phone: Start: 12-13-2024 End: [...] hospital visit by physician Xr [facility] [place] Work Phone: Radiology Comment on above: Wheezing [R06.2] Start: 12-12-2024 End: 12-12-2024 ambulatory [facility] Facility:[facility] Start: 12-12-2024 End: 12-12-2024 Office outpatient visit 25 minutes Anjel Braga APRN.CNP Work Phone: [facility] [place] Comment on above: Other emphysema (HCC ) (Primary Dx); Smoker; Wheezing; Lower abdominal tenderness; Loose stools; On home oxygen therapy; Primary hypertension; Left leg pain; Falls; Weakness Start: 12-12-2024 End: 12-12-[address] [facility] Facility:[facility] Start: 12-09-2024 End: 12-09-2024 Telephone encounter Daija Morton MD Work Phone: [facility] [place] Comment on above: Home Care Management ; Patient Update Start: 12-06-2024 End: 12-06-2024 Telephone encounter Daija Morton MD Work Phone: [facility] [place] Comment on above: [place] update Start: 12-03-2024 End: 12-04-2024 Telephone encounter Daija Morton MD Work Phone: [facility] [place] Comment on above: Home Health Orders Start: 12-02-2024 ambulatory [facility] Facility:[facility] Start: 12-02-[address] Carla Crane MD -[facility] Start: 12-02-2024 Dr. Carla Crane MD -[facility] Start: 11-05-2024 End: 11-05-[address] Daija Morton MD Work Phone: [facility] Work Phone: Start: 11-05-2024 End: 11-05-[address] Carla Crane MD -[facility] Start: 11-05-2024 End: 11-05-2024 Dr. Carla Crane MD -[facility] Start: 11-05-2024 End: 11-05-2024 ambulatory Carla RAIN Facility:[facility] Start: 10-16-2024 ambulatory Carla RAIN Facili ty:[facility] Start: 10-16-[address] Carla Crane MD [facility] Start: 10-16-2024 Dr. Carla Crane MD [facility] Start: 09-02-2024 Non-patient / Non-visit Dr. Brody Maynard MD [facility] Work Phone: Start: 09-02-2024 Dr. Brody Maynard MD [facility] Work Phone: Start: 09-01-2024 Non-patient / Non-visit Dr. Celia rapp MD [facility] Work Phone: Start: 09-01-2024 Dr. Celia Troibio MD [facility]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 [facility] Start: 12-12-2025 Annual PCP Team Chronic Disease Visit Annual PCP Team Chronic Disease Visit [facility] Start: 02-17-2025 Influenza vaccination [facility] Start: 02-04-2025 DIABETES SCREEN DIABETES SCREEN [facility] Start: 02-04-2025 Diabetes Screening Diabetes Screening [facility] Start: 01-08-[address] [facility] Start: 01-08-2025 [facility] Start: 01-07-2025 Referral to occupational therapist [facility] Start: 01-07-[address] [facility] Start: 01-05-[address] [facility] Start: 01-05-2025 Referral to gastroenterology service [facility] Start: 01-05-2025 Following clinical pathway protocol [facility] Start: 01-05-[address] [facility] Start: 01-05-2025 Assessment of risk of venous thromboembolism [facility] Start: 01-05-2025 Elevation of head of bed [facility] Start: 01-05-2025 Inhalation therapy procedure [facility] Start: 01-05-2025 Insertion of catheter into peripheral vein [facility] Start: 01-05-2025 Measuring intake and output [facility] Start: 01-05-[address] [facility] Start: 01-05-[address] [facility] Start: 01-05-2025 Providing care according to standard [facility] Start: 01-05-2025 End: 01-05-2025 [facility] Start: 01-05-[address] [facility] Start: 01-05-2025 Bacteria identified in Sputum by Culture [facility] Start: 01-05-2025 Legionella pneumophila Ag [Presence] in Urine [facility] Start: 01-05-2025 Streptococcus pneumoniae antigen assay [facility] Start: 01-05-[address] [facility] Start: 01-05-2025 Hospital admission, emergency, from emergency room, medical nature [facility] Start: 01-05-[address] [facility] Start: 01-05-2025 Patient referral to dietitian [facility] Start: 01-05-2025 [facility] Start: 01-03-2025 Emergency dept visit high severity&threat funcj [facility] Start: 01-03-2025 [facility] Start: 01-01-2025 End: 01-01-2025 Patient encounter procedure 01/01/2025 2:00 PM EDT Office Visit [facility] [address] [place] [address] Anjel Braga APRN.[facility] [address] [place], [place] [id number] 2 week follow up [facility] Comment on above: 2 week follow up Start: 12-26-[address] [facility] Start: 12-26-2024 Care planning and problem solving actions [facility] Start: 12-25-2024 End: 12-25-2024 Patient encounter procedure 12/25/2024 1:00 PM EDT Office Visit Pulmonary Medicine [address] [id number] Priscilla Barillas MD [address] [place] [address] Other emphysema (HCC) [J43.8]; Smoker [F17.200] [facility] Comment on above: Other emphysema (HCC) [J43.8]; Smoker [F 17.200] Start: 12-25-2024 End: 12-25-2024 ambulatory [facility]monary Medicine Comment on above: Other emphysema (HCC) [J43.8]; Smoker [F 17.200] * Other emphysema (H CC) [J43.8]; Smoker [F17.200] Start: 12-22-2024 [facility] Start: 12-22-[address] [facility] Start: 12-19-2024 Referral to gastroenterology service [facility] Start: 12-18-[address] [facility] Start: 12-18-[address] [facility] Start: 12-18-2024 Inhalation therapy procedure [facility] Start: 12-17-2024 Following clinical pathway protocol [facility] Start: 12-17-2024 Application of intermittent pneumatic compression device [facility] Start: 12-17-[address] [facility] Start: 12-17-2024 Assessment of risk of venous thromboembolism [facility] Start: 12-17-[address] [facility] Start: 12-17-2024 Catheterization of vein [facility] Start: 12-17-[address] [facility] Start: 12-17-2024 Elevation of head of bed [facility] Start: 12-17-[address] [facility] Start: 12-17-2024 Insertion of catheter into peripheral vein [facility] Start: 12-17-2024 Notification of physician [facility] Start: 12-17-[address] [facility] Start: 12-17-2024 Patient referral to dietitian [facility] Start: 12-17-2024 Providing care according to standard [facility] Start: 12-17-2024 Referral to occupational therapist [facility] Start: 12-17-[address] [facility] Start: 12-17-2024 Speech therapy assessment [facility] Start: 12-17-2024 Tobacco use cessation education [facility] Start: 12-17-2024 Vital signs measurements [facility] Start: 12-17-2024 End: 12-17-2024 [facility] Start: 12-17-2024 MRI of brain without contrast [facility] Start: 12-17-[address] [facility] Start: 12-17-[address] [facility] Start: 12-17-2024 Hospital admission, emergency, from emergency room, medical nature [facility] Start: 12-17-2024 Partial thromboplastin time, activated [facility] Start: 12-17-[address] [facility] Start: 12-17-2024 Thyroid stimulating hormone measurement [facility] Start: 12-17-[address] [facility] Start: 12-17-2024 End: 12-18-2024 [facility] Start: 12-17-2024 End: 03-18-2025 Hemoglobin A1c in Blood HEMOGLOBIN A1C Lab Routine Medication management Expected: 12/17/2024, Expires: 03/18/2025 [facility] Work Phone: Comment on above: Expected: 12/17/2024, Expires: Start: 12-17-2024 End: 03-18-2025 Lipid 1996 panel - Serum or Plasma LIPID PANEL, FASTING Lab Routine Hyperlipidemia Expected: 12/17/2024, Expires: 03/18/2025 [facility] Comment on above: Expected: 12/17/2024, Expires: Start: 12-17-[address] [facility] Start: 12-16-[address] [facility] Start: 12-16-[address] [facility] Start: 12-14-2024 Referral to occupational therapist [facility] Start: 12-14-[address] [facility] Start: 12-13-[address] [facility] Start: 12-13-2024 Following clinical pathway protocol [facility] Start: 12-13-2024 Assessment of risk of venous thromboembolism [facility] Start: 12-13-2024 Continuous pulse oximetry [facility] Start: 12-13-2024 Inhalation therapy procedure [facility] Start: 12-13-2024 Insertion of catheter into peripheral vein [facility] Start: 12-13-2024 Introduction of urinary catheter [facility] Start: 12-13-2024 Measuring intake and output [facility] Start: 12-13-[address] [facility] Start: 12-13-2024 Providing care according to standard [facility] Start: 12-13-2024 Provision of activity privileges [facility] Start: 12-13-2024 Tobacco use cessation education [facility] Start: 12-13-2024 End: 12-13-2024 [facility] Start: 12-13-2024 Dual pressure spontaneous ventilation support [facility] Start: 12-13-[address] [facility] Start: 12-13-[address] [facility] Start: 12-13-2024 Hospital admission, emergency, from emergency room, medical nature [facility] Start: 12-13-2024 [facility] Start: 12-13-2024 Bacteria identified in Blood by Culture Blood Culture [facility] Start: 12-13-[address] [facility] Start: 12-13-2024 Respiratory Panel (PCR) Respiratory Panel (PCR) [facility] Start: 12-13-[address] [facility] Start: 12-13-2024 Patient referral to dietitian [facility] Start: 12-12-2024 End: 03-13-2025 Comprehensive metabolic 2000 panel - Serum or Plasma [facility] Comment on above: Expected: 12/12/2024, Expires: Start: 12-12-2024 End: 03-13-2025 Urinalysis complete panel - Urine [facility] Work Phone: Comment on above: Expected: 12/12/2024, Expires: Start: 12-12-2024 End: 12-12-2024 [facility] Comment on above: Discharge from Nursing facility - Follow up Discharge from [facility] facility -see phone note 12/09 Start: 11-20-2024 Annual PCP Team Chronic Disease Visit Annual PCP Team Chronic Disease Visit [facility] Start: 09-03-2024 DIABETES SCREEN DIABETES SCREEN [facility] Start: 09-02-[address] [facility] Start: 09-01-2024 [facility] Start: 08-30-[address] [facility] Start: 08-29-[address] [facility] Start: 08-29-[address] [facility] Start: 08-27-2024 Application of intermittent pneumatic compression device [facility] Start: 08-27-[address] [facility] Start: 08-27-2024 Urine culture Urine Culture [facility] Start: 08-27-2024 [facility] Start: 08-27-[address] [facility] Start: 08-25-2024 Following clinical pathway protocol [facility] Start: 08-25-2024 Assessment of risk of venous thromboembolism [facility] Start: 08-25-2024 Inhalation therapy procedure [facility] Start: 08-25-2024 Insertion of catheter into peripheral vein [facility] Start: 08-25-2024 Measuring intake and output [facility] Start: 08-25-2024 Patient referral to dietitian [facility] Start: 08-25-2024 Providing care according to standard [facility] Start: 08-25-2024 Provision of activity privileges [facility] Start: 08-25-2024 Referral to occupational therapist [facility] Start: 08-25-[address] [facility] Start: 08-25-2024 [facility] Start: 08-25-[address] [facility] Start: 08-25-2024 Hospital admission, emergency, from emergency room, medical nature [facility] Start: 08-25-[address] [facility] Start: 08-25-[address] [facility] Start: 08-25-2024 End: 08-26-2024 [facility] Start: 08-25-[address] [facility] Start: 06-19-2024 Advance Directive Discussion Advance Directive Discussion [facility] Start: 06-19-2024 Medicare Advantage Annual Wellness Visit Medicare Advantage Annual Wellness Visit [facility] Start: 06-08-2024 Annual PCP Team Chronic Disease Visit Annual PCP Team Chronic Disease Visit [facility] Start: 06-08-2024 BP Controlled (<130/80) BP Controlled (<130/80) [facility] Start: 2024 RSV Vaccine (1 - 1-dose 75+ series) RSV Vaccine (1 - 1-dose 75+ series) [facility] Start: 03-19-2024 Lipid 1996 panel - Serum or Plasma Lipid Screening [facility] Start: 03-19-2024 Lipid panel Lipid Screening [facility] Start: 03-19-2024 LIPID SCREEN LIPID SCREEN [facility] Start: 02-18-2024 Covid-19 Vaccine ( season) Covid-19 Vaccine ( season) [facility] Start: 02-18-2024 Influenza vaccination Influenza Vaccine (#1) [facility] Start: 01-02-2024 End: 01-02-2024 Patient encounter procedure [facility] Comment on above: PVD FOLLOW UP Start: 01-01-2024 End: 01-01-2024 Patient encounter procedure 01/01/2024 9:20 AM EDT Office Visit [facility] [place] [address] [place] [address] Daija Morton MD [address] [place] [id number] 4-6 wk follow up [facility] [place] Comment on above: 4-6 wk follow up Start: 11-21-2023 End: 02-20-2024 CBC W Auto Differential panel - Blood COMPLETE BLOOD COUNT AND DIFFERENTIAL Lab Routine COPD with chronic bronchitis (HCC) Expected: 11/21/2023, Expires: 02/20/2024 [facility] Comment on above: Expected: 11/21/2023, Expires: Start: 11-21-2023 End: 02-20-2024 Comprehensive metabolic 2000 panel - Serum or Plasma COMPREHENSIVE METABOLIC PANEL Lab Routine Mixed hyperlipidemia Expected: 11/21/2023, Expires: 02/20/2024 [facility] Comment on above: Expected: 11/21/2023, Expires: Start: 11-21-2023 End: 02-20-2024 Hemoglobin A1c in Blood HEMOGLOBIN A1C Lab Routine Mixed hyperlipidemia Expected: 11/21/2023, Expires: 02/20/2024 [facility] Work Phone: Comment on above: Expected: 11/21/2023, Expires: Start: 11-21-2023 End: 02-20-2024 Lipid 1996 panel - Serum or Plasma LIPID PANEL BASIC Lab Routine Mixed hyperlipidemia Expected: 11/21/2023, Expires: 02/20/2024 [facility] Comment on above: Expected: 11/21/2023, Expires: Start: 11-21-2023 End: 11-21-2023 Patient encounter procedure [facility] [place] Comment on above: hospital discharge/ longterm fractur e of pelvic hospital discharge/ longterm fracture of pelvic(See phone encounter) Start: 11-21-2023 End: 11-21-2023 Patient encounter procedure 11/21/2023 9:40 AM EDT Office Visit [facility] [place] [address] [place] [address] Rebekah Luu PA-C [address] [place] [address] follow up custodial / copd [facility] [place] Comment on above: follow up custodial / copd Start: 08-28-2023 ANNUAL PCP TEAM CHRONIC DISEASE VISIT ANNUAL PCP TEAM CHRONIC DISEASE VISIT [facility] Start: 08-02-[address] [facility] Start: 08-01-2023 Referral to occupational therapist [facility] Start: 08-01-[address] [facility] Start: 07-31-2023 Speech therapy assessment [facility] Start: 07-31-[address] [facility] Start: 07-31-[address] [facility] Start: 07-31-2023 Following clinical pathway protocol [facility] Start: 07-31-2023 Continuous pulse oximetry [facility] Start: 07-31-[address] [facility] Start: 07-31-2023 Hospital admission, emergency, from emergency room, medical nature [facility] Start: 07-31-2023 Inhalation therapy procedure [facility] Start: 07-30-2023 Dual pressure spontaneous ventilation support [facility] Start: 07-30-[address] [facility] Start: 07-30-2023 [facility] Start: 07-26-[address] [facility] Start: 07-25-2023 Referral to occupational therapist [facility] Start: 07-25-[address] [facility] Start: 07-25-2023 Inhalation therapy procedure [facility] Start: 07-24-2023 Following clinical pathway protocol [facility] Start: 07-24-2023 Assessment of risk of venous thromboembolism [facility] Start: 07-24-2023 Insertion of catheter into peripheral vein [facility] Start: 07-24-[address] [facility] Start: 07-24-2023 Providing care according to standard [facility] Start: 07-24-[address] [facility] Start: 07-24-2023 [facility] Start: 07-24-[address] [facility] Start: 07-24-[address] [facility] Start: 07-24-2023 Hospital admission, emergency, from emergency room, medical nature [facility] Start: 07-24-[address] [facility] Start: 07-24-[address] [facility] Start: 07-24-2023 Patient referral to dietitian [facility] Start: 06-19-2023 Advance Directive Discussion Advance Directive Discussion [facility] Start: 04-04-[address] [facility] Start: 04-03-[address] [facility] Start: 04-02-[address] [facility] Start: 03-30-2023 End: 03-30-2023 Following clinical pathway protocol [facility] Start: 03-30-2023 Assessment of risk of venous thromboembolism [facility] Start: 03-30-2023 Catheterization of vein [facility] Start: 03-30-2023 Inhalation therapy procedure [facility] Start: 03-30-2023 Insertion of catheter into peripheral vein [facility] Start: 03-30-[address] [facility] Start: 03-30-2023 Providing care according to standard [facility] Start: 03-30-2023 Provision of activity privileges [facility] Start: 03-30-2023 Referral to occupational therapist [facility] Start: 03-30-[address] [facility] Start: 03-30-2023 End: 03-30-2023 [facility] Start: 03-30-2023 End: 03-30-[address] [facility] Start: 03-30-[address] [facility] Start: 03-30-2023 Hospital admission, emergency, from emergency room, medical nature [facility] Start: 03-30-[address] [facility] Start: 03-30-2023 Bacteria identified in Blood by Culture Blood Culture [facility] Start: 03-30-[address] [facility] Start: 03-30-2023 Inhalation therapy procedure [facility] Start: 03-29-2023 [facility] Start: 03-29-2023 Emergency department visit low/moder severity EMERGENCY DEPT VISIT [facility] Start: 03-10-2023 ANNUAL PCP TEAM CHRONIC DISEASE VISIT ANNUAL PCP TEAM CHRONIC DISEASE VISIT [facility] Start: 02-17-2023 Covid-19 Vaccine () Covid-19 Vaccine () [facility] Start: 02-17-2023 Influenza vaccination [facility] Start: 02-04-2023 ANNUAL PCP TEAM CHRONIC DISEASE VISIT ANNUAL PCP TEAM CHRONIC DISEASE VISIT [facility] Start: 01-28-2023 ANNUAL PCP TEAM CHRONIC DISEASE VISIT ANNUAL PCP TEAM CHRONIC DISEASE VISIT [facility] Start: 01-14-2023 SHINGRIX VACCINE (2 of 3) SHINGRIX VACCINE (2 of 3) [facility] Comment on above: Postponed from 11/19/2020 (Declined at t his time) Start: 01-03-2023 Urine microalbumin profile DTAP,TDAP,TD (2 - Td or Tdap) [facility] Start: 11-17-2022 ANNUAL PCP TEAM CHRONIC DISEASE VISIT ANNUAL PCP TEAM CHRONIC DISEASE VISIT [facility] Start: 10-26-2022 COVID-19 VACCINE (4 - Moderna series) COVID-19 VACCINE (4 - Moderna series) [facility] Start: 10-21-2022 [facility] Start: 10-07-2022 ANNUAL PCP TEAM CHRONIC DISEASE VISIT ANNUAL PCP TEAM CHRONIC DISEASE VISIT [facility] Start: 09-15-2022 ANNUAL PCP TEAM CHRONIC DISEASE VISIT ANNUAL PCP TEAM CHRONIC DISEASE VISIT [facility] Start: 06-19-2022 ADVANCE DIRECTIVE DISCUSSION ADVANCE DIRECTIVE DISCUSSION [facility] Start: 04-02-2022 ANNUAL PCP TEAM CHRONIC DISEASE VISIT ANNUAL PCP TEAM CHRONIC DISEASE VISIT [facility] Start: 03-29-2022 End: 05-29-2022 Hemoglobin A1c in Blood HGB A1C Lab Routine Medication management Expected: 03/29/2022, Expires: 05/29/2022 [facility] Work Phone: Comment on above: Expected: 03/29/2022, Expires: Start: 03-29-2022 End: 05-29-2022 Lipid 1996 panel - Serum or Plasma LIPID PANEL BASIC Lab Routine Hyperlipidemia Expected: 03/29/2022, Expires: 05/29/2022 [facility] Work Phone: Comment on above: Expected: 03/29/2022, Expires: 2 Start: 03-29-2022 End: 05-29-2022 SCHEDULE LAB TESTING SCHEDULE LAB TESTING Lab Routine Expected: 03/29/2022, Expires: 05/29/2022 [facility] Work Phone: Comment on above: Expected: 03/29/2022, Expires: 2 Start: 02-17-2022 Influenza vaccination INFLUENZA (#1) [facility] Start: 01-14-2022 End: 03-16-2022 CBC W Auto Differential panel - Blood [facility] Work Phone: Comment on above: Expected: 01/14/2022, Expires: 2 Start: 11-30-[address] [facility] Work Phone: Start: 11-28-2021 Care planning and problem solving actions [facility] Work Phone: Start: 11-26-2021 Administration of blood product [facility] Work Phone: Start: 11-26-2021 Catheterization of vein [facility] Work Phone: Start: 11-26-2021 Notification of physician [facility] Work Phone: Start: 11-26-2021 Referral to occupational therapist [facility] Work Phone: Start: 11-26-2021 End: 11-26-[address] [facility] Work Phone: Start: 11-26-2021 Catheterization of vein [facility] Work Phone: Start: 11-26-2021 Following clinical pathway protocol [facility] Work Phone: Start: 11-26-2021 Inhalation therapy procedure [facility] Work Phone: Start: 11-25-2021 Assessment of risk of venous thromboembolism [facility] Work Phone: Start: 11-25-2021 Insertion of catheter into peripheral vein [facility] Work Phone: Start: 11-25-2021 Measuring intake and output [facility] Work Phone: Start: 11-25-[address] [facility] Work Phone: Start: 11-25-2021 Providing care according to standard [facility] Work Phone: Start: 11-25-2021 Provision of activity privileges [facility] Work Phone: Start: 11-25-2021 Referral to gastroenterology service [facility] Work Phone: Start: 11-25-2021 [facility] Work Phone: Start: 11-25-[address] [facility] Work Phone: Start: 11-25-2021 End: 11-25-2021 Administration of blood product [facility] Work Phone: Start: 11-25-2021 Patient referral to dietitian [facility] Work Phone: Start: 10-23-2021 End: 12-23-2021 PT panel - Platelet poor plasma by Coagulation assay PROTHROMBIN TIME/PT Lab Routine Anticoagulation goal of INR 2 to 3 Expected: 10/23/2021, Expires: 12/23/2021 [facility] Work Phone: Comment on above: Expected: 10/23/2021, Expires: 2 Start: 10-19-2021 End: 12-19-2021 Hemoglobin A1c/Hemoglobin.total in Blood HGB A1C Lab Routine Medication management Expected: 10/19/2021, Expires: 12/19/2021 [facility] Work Phone: Comment on above: Expected: 10/19/2021, Expires: 2 Start: 10-19-2021 End: 12-19-2021 LIPID PANEL BASIC LIPID PANEL BASIC Lab Routine Hyperlipidemia Expected: 10/19/2021, Expires: 12/19/2021 [facility] Work Phone: Comment on above: Expected: 10/19/2021, Expires: 2 Start: 10-19-2021 End: 12-19-2021 SCHEDULE LAB TESTING SCHEDULE LAB TESTING Lab Routine Expected: 10/19/2021, Expires: 12/19/2021 [facility] Work Phone: Comment on above: Expected: 10/19/2021, Expires: 2 Start: 10-17-2021 Colonoscopy COLONOSCOPY [facility] Start: 10-17-2021 COLORECTAL CANCER SCREENING COLORECTAL CANCER SCREENING [facility] Start: 09-22-2021 End: 11-22-2021 CBC W Auto Differential panel - Blood CBC + DIFF Lab Routine Anemia, unspecified type Expected: 09/22/2021, Expires: 11/22/2021 [facility] Work Phone: Comment on above: Expected: 09/22/2021, Expires: 2 Start: 09-22-2021 End: 11-22-2021 PT panel - Platelet poor plasma by Coagulation assay PROTHROMBIN TIME/PT Lab Routine Encounter for monitoring Coumadin therapy Expected: 09/22/2021, Expires: 11/22/2021 [facility] Work Phone: Comment on above: Expected: 09/22/2021, Expires: 2 Start: 08-21-[address] [facility] Work Phone: Start: 08-19-2021 Application of intermittent pneumatic compression device [facility] Work Phone: Start: 08-19-[address] [facility] Work Phone: Start: 08-19-[address] [facility] Work Phone: Start: 08-19-2021 [facility] Work Phone: Start: 08-19-2021 Care planning and problem solving actions [facility] Work Phone: Start: 08-19-2021 Administration of blood product 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 Work Phone: Start: 08-19-2021 [facility] Work Phone: Start: 08-19-2021 Referral to occupational therapist [facility] Work Phone: Start: 08-19-[address] [facility] Work Phone: Start: 08-19-2021 Application of intermittent pneumatic compression device [facility] Work Phone: Start: 08-19-2021 Administration of blood product [facility] Work Phone: Start: 08-19-2021 Administration of blood product [facility] Work Phone: Start: 08-19-2021 Inhalation therapy procedure [facility] Work Phone: Start: 08-18-2021 Following clinical pathway protocol [facility] Work Phone: Start: 08-18-[address] [facility] Work Phone: Start: 08-18-2021 Assessment of risk of venous thromboembolism [facility] Work Phone: Start: 08-18-2021 Insertion of catheter into peripheral vein [facility] Work Phone: Start: 08-18-2021 Providing care according to standard [facility] Work Phone: Start: 08-18-2021 [facility] Work Phone: Start: 08-18-[address] [facility] Work Phone: Start: 06-19-2021 ADVANCE DIRECTIVE DISCUSSION ADVANCE DIRECTIVE DISCUSSION [facility] Start: 06-04-2021 Smpl repair scalp/neck/ax/genit/trunk 2.6-7.5cm RPR S/N/AX/GEN/TRNK2.6-7.5C M [facility] Work Phone: Start: 11-19-2020 SHINGRIX VACCINE (2 of 3) SHINGRIX VACCINE (2 of 3) [facility] Start: 11-05-2020 COVID-19 VACCINE (2 - Moderna 3-dose series) COVID-19 VACCINE (2 - Moderna 3-dose series) [facility] Start: 11-05-2020 COVID-19 VACCINE (2 - Moderna series) COVID-19 VACCINE (2 - Moderna series) [facility] Start: 03-19-2020 Hepatitis B surface antibody level LDL CHOLESTEROL [facility] Start: 11-15-2015 FECAL OCCULT BLOOD FECAL OCCULT BLOOD [facility] Start: 11-15-2015 Screening for malignant neoplasm of colon Fecal Occult Blood [facility] Start: 01-17-2014 Medicare Annual Wellness Visit Medicare Annual Wellness Visit [facility] Start: 2009 RSV Vaccine (1 - 1-dose 60+ series) RSV Vaccine (1 - 1-dose 60+ series) [facility] Start: 2009 RSV Vaccine (1 - Risk 60-74 years 1-dose series) RSV Vaccine (1 - Risk 60-74 years 1-dose series) [facility] Start: 1999 Influenza vaccination LUNG CANCER SCREENING [facility] Start: 1999 Screening for malignant neoplasm of lung Lung Cancer Screening [facility] Start: 1999 SHINGRIX VACCINE (1 of 2) SHINGRIX VACCINE (1 of 2) [facility] Start: 1994 COLOGUARD (FIT-DNA) COLOGUARD (FIT-DNA) [facility] Start: [address] COLONOGRAPHY [facility] Start: 1994 Screening for malignant neoplasm of colon [facility] Start: 1994 SIGMOIDOSCOPY SIGMOIDOSCOPY [facility] Start: 1979 Zoledronic acid therapy ALPHA-1 ANTITRYPSIN DEFICIENCY SCREENING [facility] Start: 1967 BP CONTROLLED (<130/80) BP CONTROLLED (<130/80) [facility] inic Bacteria identified in Urine by Culture URINE CULTURE Microbiology Routine Dysuria Ordered: 09/15/2021 [facility] Work Phone: Comment on above: Ordered: 09/15/2021 Bacteria identified in Urine by Culture Urine Culture [facility] Bacteria identified in Urine by Culture URINE CULTURE Microbiology Routine Dysuria 03/23/2024 2:06 PM EDT [facility] Work Phone: Blood ammonia measurement [facility] carBAMazepine [Mass/ volume] in Serum or Plasma [facility] Clostridioides diffi cile DNA [Presence] in Unspecified specimen by ALEENA with probe detection [facility] End: 01-28-2023 ECG COMPLETE ECG COMPLETE ECG Routine Essential hypertension Chest pain, unspecified type 1 Occurrences starting 01/28/2022 until 01/28/2023 [facility] Work Phone: Comment on above: 1 Occurrences starting 01/28/2022 until 01/28/2023 Hemoglobin A1c/Hemoglobin.total in Blood [facility] Hemoglobin.gastroint estinal. lower [Presence] in Stool by Immunoassay FECAL OCCULT BLOOD TEST Lab Routine Acute blood loss anemia Angiodysplasia of colon with hemorrhage Ordered: 01/14/2022 [facility] Work Phone: Comment on above: Ordered: 01/14/2022 INR in Blood by Coag ulation assay [facility] Lactic acid measurement [facility] End: 12-05-2022 LUNG DIFFUSION CAPACITY (DLCO) LUNG DIFFUSION CAPACITY (DLCO) PFT Routine COPD with chronic bronchitis (HCC) 1 Occurrences starting 11/05/2021 until 12/05/2022 [facility] Work Phone: Comment on above: 1 Occurrences starting 11/05/2021 until 12/05/2022 End: 01-15-2026 LUNG DIFFUSION CAPACITY (DLCO) LUNG DIFFUSION CAPACITY (DLCO) PFT Routine SOB (shortness of breath) 1 Occurrences starting 12/17/2024 until 01/15/2026 [facility] Comment on above: 1 Occurrences starting 12/17/2024 until 01/15/2026 Nucleic acid assay [facility] Patient Education [facility] Work Phone: Patient referral [facility] Work Phone: End: 06-18-2023 PVR LEG COREY VAS LAB PVR LEG COREY VAS LAB Vascular Lab Routine PVD (peripheral vascular disease) (HCC) 1 Occurrences starting 01/31/2022 until 06/18/2023 [facility] Work Phone: Comment on above: 1 Occurrences starting 01/31/2022 until 06/18/2023 PVR LEG COREY VAS LAB PVR LEG COREY VAS LAB Vascular Lab Routine Peripheral arterial disease (HCC) PVD (peripheral vascular disease) (HCC) 1 Occurrences starting 12/26/2022 [facility] Work Phone: Comment on above: 1 Occurrences starting 12/26/2022 End: 12-05-2022 Radiologic exam chest 2 views XR CHEST 2V FRONTAL/LAT Radiology Routine COPD with chronic bronchitis (HCC) 1 Occurrences starting 11/05/2021 until 12/05/2022 [facility] Work Phone: Comment on above: 1 Occurrences starting 11/05/2021 until 12/05/2022 Respiratory pathogen s DNA and RNA panel - Respiratory specimen by ALEENA with probe detection [facility] End: 01-15-2026 SPIROMETRY WITH DILATOR IF OBSTRUCTED SPIROMETRY WITH DILATOR IF OBSTRUCTED PFT Routine SOB (shortness of breath) 1 Occurrences starting 12/17/2024 until 01/15/2026 [facility] Work Phone: Comment on above: 1 Occurrences starting 12/17/2024 until 01/15/2026 Troponin T.cardiac [Mass/volume] in Serum or Plasma by High sensitivity method [facility] Troponin T.cardiac [Mass/volume] in Serum or Plasma by High sensitivity method [facility] Urinalysis complete panel - Urine URINALYSIS, WITH MICROSCOPIC Lab Routine Dysuria Hematuria, unspecified type Ordered: 09/15/2021 [facility] Work Phone: Comment on above: Ordered: 09/15/2021 Urinalysis complete panel - Urine UA WITH CULTURE IF INDICATED Lab Routine Dysuria Ordered: 09/15/2021 [facility] Work Phone: Comment on above: Ordered: 09/15/[address] [facility] End: 01-01-2025 US Lower extremity artery - bilateral PVR LEG COREY VAS LAB Vascular Lab Routine Peripheral arterial disease (HCC) 1 Occurrences starting 01/02/2024 until 01/01/2025 [facility] Work Phone: Comment on above: 1 Occurrences starting 01/02/2024 until 01/01/2025 End: 01-11-2026 XR Chest PA and Lateral XR CHEST 2V FRONTAL/LAT Radiology Routine Wheezing 1 Occurrences starting 12/12/2024 until 01/11/2026 [facility] Comment on above: 1 Occurrences starting 12/12/2024 until 01/11/2026 XR Chest PA and Lateral XR CHEST 2V FRONTAL/LAT Radiology Routine Wheezing 12/12/2024 3:36 PM EDT [facility] Immunizations Immunization Date Immunization Notes Care Provider [facility] 03-31-2023 Influenza High-Dose Quadrivalent Dr. Daija Morton Work Phone: [facility] 03-31-2023 influenza virus vaccine, unspecified formulation Daija Morton MD Work Phone: [facility] 06-04-2021 tetanus toxoid, redu marianna diphtheria toxoid, and acellular pertussis vaccine, adsorbed Dr. Daija Morton Work Phone: [facility] 04-05-2021 influenza, high-dose , quadrivalent vaccine (FLUZONE HIGH DOSE QUADRIVALENT) Lizette Ulloa RN Work Phone: [facility] 04-05-2021 influenza virus vaccine, unspecified formulation Anjel Braga APRN.GUIDE RAIL CLEANER Work Phone: [facility] 10-08-2020 COVID-19 vaccine, fu ll dose (MODERNA) Lizette Ulloa RN Work Phone: [facility] 09-24-2020 zoster vaccine, live Harriett lomax SENIOR DRUPAL DEVELOPER.ARTIFICIAL BREAST FABRICATOR Work Phone: [facility] 09-16-2020 influenza, high-dose , quadrivalent vaccine (FLUZONE HIGH DOSE QUADRIVALENT) Respiratory Wstr Work Phone: [facility] Work Phone: 08-09-2020 influenza, injectabl e, quadrivalent, contains preservative Harriett Albert SENIOR DRUPAL DEVELOPER.ARTIFICIAL BREAST FABRICATOR Work Phone: [facility] 08-09-2020 influenza, injectabl e, quadrivalent, preservative free Dr. Daija Morton Work Phone: [facility] 08-09-2020 influenza, seasonal, injectable Dr. Daija Morton Work Phone: [facility] 08-09-2020 influenza, seasonal, injectable, preservative free Harriett Albert SENIOR DRUPAL DEVELOPER.ARTIFICIAL BREAST FABRICATOR Work Phone: [facility] 05-21-2020 influenza, high-dose , quadrivalent vaccine (FLUZONE HIGH DOSE QUADRIVALENT) Lizette Ulloa RN Work Phone: [facility] Work Phone: 07-11-2019 influenza, high dose seasonal, preservative-free Lizette Ulloa RN Work Phone: [facility] Work Phone: 05-18-2018 pneumococcal polysaccharide vaccine, 23 valent Lizette Ulloa RN Work Phone: [facility] 03-14-2018 influenza, high dose seasonal, preservative-free Lizette Ulloa RN Work Phone: [facility] 05-31-2017 influenza, high dose seasonal, preservative-free Lizette Ulloa RN Work Phone: [facility] 06-01-2016 influenza, high dose seasonal, preservative-free Lizette Mayi RN Work Phone: [facility] Work Phone: 03-23-2016 influenza, injectabl e, quadrivalent, contains preservative Harriett Albert SENIOR DRUPAL DEVELOPER.ARTIFICIAL BREAST FABRICATOR Work Phone: [facility] 03-23-2016 influenza, injectabl e, quadrivalent, preservative free Dr. Daija Morton Work Phone: [facility] 03-23-2016 influenza, seasonal, injectable Dr. Daija Morton Work Phone: [facility] 03-23-2016 influenza, seasonal, injectable, preservative free Lizette Ulloa RN Work Phone: [facility] Work Phone: 07-14-2015 pneumococcal conjuga te vaccine, 13 valent Lizette Ulloa RN Work Phone: [facility] Work Phone: 09-09-2014 influenza, injectabl e, quadrivalent, contains preservative Harriett Albert SENIOR DRUPAL DEVELOPER.ARTIFICIAL BREAST FABRICATOR Work Phone: [facility] 09-09-2014 influenza, injectabl e, quadrivalent, preservative free Dr. Daija Morton Work Phone: [facility] 09-09-2014 influenza, seasonal, injectable Dr. Daija Morton Work Phone: [facility] 09-09-2014 influenza, seasonal, injectable, preservative free Lizette Ulloa RN Work Phone: [facility] Work Phone: 03-25-2013 pneumococcal polysaccharide vaccine, 23 valent Lizette Ulloa RN Work Phone: [facility] Work Phone: 03-25-[address] Nemesio Morton Work Phone: [facility] Work Phone: 03-25-2013 pneumococcal vaccine , unspecified formulation Respiratory Wstr Work Phone: [facility] Work Phone: 03-24-[address] Daija Morton Work Phone: [facility] 03-24-2013 influenza virus vaccine, unspecified formulation Lizette Ulloa RN Work Phone: [facility] Work Phone: 03-24-2013 influenza, seasonal, injectable Harriett Albert APRN.ARTIFICIAL BREAST FABRICATOR Work Phone: [facility] 03-24-2013 influenza, seasonal, injectable, preservative free Lizette Ulloa RN Work Phone: [facility] Work Phone: 01-03-2013 tetanus toxoid, redu marianna diphtheria toxoid, and acellular pertussis vaccine, adsorbed Lizette Ulloa RN Work Phone: [facility] Payers Date Payer Category Payer Unknown [id number] 2024 Medicare (Managed Care) [id number]. [id number] 2024 Medicaid [id number] 2024 Unknown [id number] 2024 Self-pay [id number] 2023 Private Health Insurance [id number] 2022 Unknown [id number] 2021 Medicare [facility] AARP MEDICAR E [facility] AARP MEDICARE HMO [id number] 2021-Present [phone] [address] [address] [place] [address] HMO [id number] 2017 Medicaid [id number] 2017 Medicaid [id number] .[id number] 2014 Medicare [id number] 2014 Medicare [id number] 2014 Medicare [id number] 1.13.159.2.7 .[id number] 1949 Unknown [id number] 2.16.840.1.444155.3.579.2.6 27 1949 Unknown [id number] 2.16.840.1.701147.3.579.2.6 27 1949 Unknown [id number] 2.16.840.1.855856.3.579.2.6 27 Private Health Insurance [facility] [id number] Unknown [id number] Unknown [id number] Unknown [id number] 2.16.840.1.868330.3.579.2.4 62 Unknown [id number] 2.16.840.1.919423.3.579.2.4 62 Unknown [id number] 2.16.840.1.514119.3.579.2.4 62 Unknown [id number] 2.16.840.1.936675.3.579.2.4 62 Unknown [id number] 2.16.840.1.416555.3.579.2.4 62 Unknown [id number] 2.16.840.1.177683.3.579.2.4 62 Unknown [id number] 2.16.840.1.993169.3.579.2.4 62 Unknown [id number] 2.16.840.1.226750.3.579.2.4 62 Unknown [id number] 2.16.840.1.699990.3.579.2.4 62 Unknown [id number] 2.16.840.1.236926.3.579.2.4 62 Unknown [id number] 2.16.840.1.358658.3.579.2.4 62 Unknown [id number] 2.16.840.1.415218.3.579.2.4 62 Unknown [id number] 2.16.840.1.323782.3.579.2.4 62 Unknown [id number] 2.16.840.1.117361.3.579.2.4 62 Unknown [id number] 2.16.840.1.807218.3.579.2.4 62 Unknown [id number] 2.16.840.1.096536.3.579.2.4 62 Unknown [id number] 2.16.840.1.365006.3.579.2.4 62 Unknown [id number] 2.16.840.1.127275.3.579.2.4 62 Unknown [id number] 2.16.840.1.442193.3.579.2.4 62 Unknown [id number] 2.16.840.1.689222.3.579.2.4 62 Unknown [id number] 2.16.840.1.260777.3.579.2.4 62 Unknown [id number] 2.16.840.1.209165.3.579.2.4 62 Unknown [id number] 2.16.840.1.533801.3.579.2.4 62 Unknown [id number] 2.16.840.1.145139.3.579.2.4 62 Unknown [id number] 2.16.840.1.396618.3.579.2.4 62 Unknown [id number] 2.16.840.1.781470.3.579.2.4 62 Unknown [id number] 2.16.840.1.993160.3.579.2.4 62 Unknown [id number] 2.16.840.1.999151.3.579.2.4 62 Unknown [id number] 2.16.840.1.905387.3.579.2.4 62 Unknown [id number] 2.16.840.1.957417.3.579.2.4 62 Unknown [id number] 2.16.840.1.867916.3.579.2.4 62 Unknown [id number] 2.16.840.1.605319.3.579.2.4 62 Unknown [id number] 2.16.840.1.580245.3.579.2.4 62 Unknown [id number] 2.16.840.1.570622.3.579.2.4 62 Unknown [id number] 2.16.840.1.562257.3.579.2.4 62 Unknown [id number] 2.16.840.1.844754.3.579.2.4 62 Unknown [id number] 2.16.840.1.947190.3.579.2.4 62 Unknown [id number] 2.16.840.1.972264.3.579.2.4 62 Unknown [id number] 2.16.840.1.490446.3.579.2.4 62 Unknown [id number] 2.16.840.1.278490.3.579.2.4 62 Unknown [id number] 2.16.840.1.414241.3.579.2.4 62 Unknown [id number] 2.16.840.1.871661.3.579.2.4 62 Unknown [id number] 2.16.840.1.142275.3.579.2.4 62 Unknown [id number] 2.16.840.1.256142.3.579.2.4 62 Unknown [id number] 2.16.840.1.617072.3.579.2.4 62 Unknown [id number] 2.16.840.1.717964.3.579.2.4 62 Unknown [id number] 2.16.840.1.857859.3.579.2.4 62 Unknown [id number] 2.16.840.1.773048.3.579.2.4 62 Unknown [id number] 2.16.840.1.003039.3.579.2.4 62 Unknown [id number] 2.16.840.1.994188.3.579.2.4 62 Unknown [id number] 2.16.840.1.249472.3.579.2.4 62 Unknown [id number] 2.16.840.1.574886.3.579.2.4 62 Unknown [id number] 2.16.840.1.771067.3.579.2.4 62 Unknown [id number] 2.16.840.1.962390.3.579.2.4 62 Unknown [id number] 2.16.840.1.667892.3.579.2.4 62 Unknown [id number] 2.16.840.1.236470.3.579.2.4 62 Unknown [id number] 2.16.840.1.492716.3.579.2.4 62 Unknown [id number] 2.16.840.1.815541.3.579.2.4 62 Unknown [id number] 2.16.840.1.708674.3.579.2.4 62 Unknown [id number] 2.16.840.1.529863.3.579.2.4 62 Unknown [id number] 2.16.840.1.087366.3.579.2.4 62 Unknown [id number] 2.16.840.1.705669.3.579.2.4 62 Unknown [id number] 2.16.840.1.426353.3.579.2.4 62 Unknown [id number] 2.16.840.1.202076.3.579.2.4 62 Unknown [id number] 2.16.840.1.532632.3.579.2.4 62 Social History Date Type Detail Facility Start: 04-10-2020 End: 01-05-2025 Tobacco smoking status NHIS Ex-smoker [facility] Start: 06-19-1964 History of tobacco use Cigarette Smo ker [facility] Start: 04-10-2020 End: 12-26-2022 Cigarettes smoked current (pack per day) - Reported 2 [facility] Start: 04-10-2020 End: 03-23-2024 Tobacco use and exposure Smokeless tobacco non-user [facility] Start: 08-26-2021 End: 12-12-2024 Alcohol intake Current non-drinker of alcohol (finding) [facility] Start: 04-16-2015 History SDOH Alcohol Comment History of alcohol abuse. I cut that out. [facility] Start: 12-17-2019 History SDOH Financial 5 [facility] Start: 12-17-2019 History SDOH Food Worry 2 [facility] Start: 12-17-2019 History SDOH Food Scarcity 1 [facility] Start: 08-22-2019 End: 01-31-2022 Tobacco Comment patient started using patches [facility] Start: 1950 Sex Assigned At Not on file [facility] Start: 10-12-2020 End: 03-10-2022 Exposure to SARS-CoV-2 (event) Not sure [facility] Start: 06-19-1964 End: 03-23-2024 Tobacco smoking status NHIS Smokes tobacco daily [facility] Start: 09-17-2021 End: 01-23-2025 Tobacco smoking status NHIS Unknown if ever smoked [facility] Start: 01-20-2021 [facility] Start: 12-16-2019 Snf [facility] Start: 08-09-2020 Cigarettes [facility] Start: 1950 Sex Assigned At Male [facility] Start: 09-14-2021 End: 01-28-2022 Exposure to SARS-CoV-2 (event) Unable to assess [facility] Start: 05-14-2018 Tobacco smoking status Light t obacco smoker (finding) [facility] Sex Assigned At [facility] Start: 12-17-2019 End: 12-26-2022 Tobacco use panel [facility] How hard is it for y ou to pay for the very basics like food, housing, medical care, and heating Not hard at all [facility] (I/We) worried massimo er (my/our) food would run out before (I/we) got money to buy more. Sometimes true [facility] The food that (I/we) bought just didn't last, and (I/we) didn't have money to get more. Never true [facility] Start: [birth year]19-1964 History of tobacco use Current smoke r [facility] Start: 08-25-2024 End: 08-25-2024 Tobacco smoking status NHIS Current some day smoker [facility] Start: 06-02-2009 End: 08-25-2024 Sex Male (finding) [facility] Medical Equipment Procedure Code Equipment Code Equipment Original Text Equipment Identifier Dates EGD, with monitored anesthesia care [id number] FDA Start: 12-23-2024 EGD, with monitored anesthesia care ()[id number] FDA Start: 01-06-2025 Graft [place] 7mm T hin Wall Heparin Propaten Ptfe 80cm 60cm Vascular Removable - [id number] Start: 10-10-2019 Patch Cv 8x.8cm Tapr Vsgrd Bov - [id number] Start: 10-23-2013 Comment on above: Description: Implant ed left femoral artery Patch Vascu-Guar d Taper Bovine Pericardial 8x.8cm Cardiovascular Arnold - [id number] Start: 10-08-2019 Stent Palmaz Gen esis Opta Pro Flexsegment 8mm 40mm Large Stainless Steel 80 - [id number] Start: 10-08-2019 Stent Palmaz Gen esis Opta Pro Flexsegment 8mm 40mm Large Stainless Steel 80 - [id number] Start: 10-08-2019 Stent Trchbr 7mm 7fr 38mm 120 - [id number] Start: 10-23-2013 Comment on above: Description: Second stent lot #[id number]. exp. 03/2016 Stent Vasc 8mm 1 5cm 120cm .035 - [id number] Start: 10-23-2013 Comment on above: Description: Implant ed in left iliac artery Stent Trchbr 7mm 7fr 38mm 120 - [id number] Start: 10-23-2013 Stent Corey 10mm 8 0mm 120cm .035 - [id number] Start: 10-23-2013 Comment on above: Description: Implant ed in right iliac artery Stent Corey 10mm 8 0mm 120cm .035 - [id number] Start: 10-23-2013 Comment on above: Description: Implant ed in right iliac artery Stent Icast 8mm Ptfe Stainless Steel 59mm 80cm Tracheobronchial Covered - [id number] Start: 10-08-2019 Stent Icast 8mm Ptfe Stainless Steel 59mm 80cm Tracheobronchial Covered - [id number] Start: 10-08-2019 Goals Date Patient Goal [...] Functional status Ambulates;Emeka r;Bedside Commode;Stand and pivot [facility] Work Phone: 12-26-2024 Functional status Stand and pivot [facility] Work Phone: 12-16-2024 Functional status [facility] [address] [facility] Work [facility]: 12-16-2024 Functional status Ambulates;Back to bed [facility] Work Phone: 09-02-2024 Functional status With Assist of 1 [facility] Work Phone: 09-01-2024 Functional status Bathroom Privilege [facility] Work Phone: 08-02-2023 Functional status With Assist of 1 [facility] Work Phone: 08-01-2023 Functional status Bedrest [facility] Work Phone: 07-26-2023 Functional status Chair [facility] Work Phone: 07-26-2023 Functional status Bedrest [facility] Work Phone: 07-25-2023 Functional status None [facility] Work Phone: 04-04-2023 Functional status Up ad chadwick;Bath room Privilege [facility] Work Phone: 10-22-2022 Functional Status Minimum assistance [facility] 10-22-2022 Functional Status Standard Safet y ID band on, Call device within reach, Bed in low position, Wheels locked, Upper/Half-Length side-rails up, Phone within reach, Bedside Cart Locked [facility] 11-30-2021 Functional status Ambulates [facility] Work Phone: 09-29-2021 Functional Status [facility] 09-13-2021 Are you deaf, or do you have serious difficulty hearing No 09/13/2021 4:47 PM Bessy Ovalles, RN No [facility] 09-13-2021 Are you blind, or do you have serious difficulty seeing, even when wearing glasses No 09/13/2021 4:47 PM Bessy Ovalles, RN No [facility] 09-13-2021 Do you have serious difficulty walking or climbing stairs No 09/13/2021 4:47 PM EDT Bessy Nunez, RN No [facility] 09-13-2021 Do you have difficul ty dressing or bathing No 09/13/2021 4:47 PM EDT Bessy Nunez, RN No [facility] 09-13-2021 Because of a physica l, mental, or emotional condition, do you have difficulty doing errands alone such as visiting a physician's office or shopping No 09/13/2021 4:47 PM EDT Bessy Nunez, SEYMOUR No [facility] 08-21-2021 Functional status Ambulates;Emeka r;Bathroom Privilege [facility] Work Phone: 08-21-2021 Functional status Tolerates Activity Well [facility] Work Phone: Mental Status Date Assessment Result Facility 01-08-2025 Cognitive function Touch/Shaking [facility] Work Phone: 01-05-2025 Cognitive function Awake;Disoriented [facility] Work Phone: 12-26-2024 Cognitive function Voice/Name [facility] Work Phone: 12-17-2024 Cognitive function Voice/Name [facility] Work Phone: 12-16-2024 Cognitive function Voice/Name [facility] Work Phone: 09-02-2024 Cognitive function Voice/Name [facility] Work Phone: 08-25-2024 Cognitive function Level Of Cons ciousness Awake;Alert;Appropriate;Fol lows Commands [facility] Work Phone: 08-02-2023 Cognitive function Voice/Name [facility] Work Phone: 07-26-2023 Cognitive function Person;Place;Time [facility] Work Phone: 07-25-2023 Cognitive function Voice/Name [facility] Work Phone: 04-04-2023 Cognitive function Voice/Name [facility] Work Phone: 02-17-2023 Cognitive function Level Of Cons ciousness Awake;Alert;Appropriate;Fol lows Commands [facility] Work Phone: 12-31-2022 Cognitive function Level Of Cons ciousness Awake;Alert;Appropriate;Fol lows Commands [facility] Work Phone: 10-22-2022 Mental Status Orientation Oriented x 4 [facility] 10-22-2022 Mental Status [facility] 03-07-2022 Cognitive function Level Of Cons ciousness Awake;Alert;Appropriate [facility] Work Phone: 03-02-2022 Cognitive function Level Of Cons ciousness Awake;Alert;Appropriate [facility] Work Phone: 01-28-2022 Cognitive function Level Of Cons ciousness Awake;Alert;Appropriate;Fol lows Commands [facility] Work Phone: 11-30-2021 Cognitive function Voice/Name [facility] Work Phone: 10-08-2021 Cognitive function Level Of Cons ciousness Awake;Alert;Appropriate;Fol lows Commands [facility] Work Phone: 09-29-2021 Mental Status [facility] 09-13-2021 Because of a physica l, mental, or emotional condition, do you have serious difficulty concentrating, remembering, or making decisions No 09/13/2021 4:47 PM EDT Bessy Nunez RN No [facility] 08-21-2021 Cognitive function Voice/Name [facility] Work Phone: 06-12-2021 Cognitive function Level Of Cons ciousness Awake;Alert;Appropriate;Fol lows Commands [facility] Work Phone: Clinical Notes 10-08-2019 to [...] in any part of the body Seizures 2551-3059 [employer]. [address] [place] [address]. All rights reserved. This information is not intended as a substitute for professional medical care. Always follow your healthcare professional's instructions. Follow Up Care 03/18/2025 02:08:48 With:Go to emergency room if symptoms worsen Address:Unknown When:2-4 days With:CARLA CRANE MD Address: [address] [place] [phone]- [phone] When:2-4 days [facility] 03-18-2025 Note Discharge Instructions Thank you for allowing [facility] to assist you with your healthcare needs. [...] with CARLA CRANE MD When:Within 2-4 days Where:[address] [place] [phone]- [phone] Allergies NKA Medications Please ask your primary [...] in any part of the body Seizures 5728-8065 [employer]. [address] [place] [address]. All rights reserved. This information is not intended as a substitute for professional medical care. Always follow your healthcare professional's instructions. Additional Information VACCINATE! IT SAVES LIVES! Members of the community who have not yet received the COVID-19 vaccine and would like to receive it can visit one of [facility] vaccine clinics. There are many vaccine clinic locations within the [facility]. For locations and available times, please visit [email or web address] It is important to note that some COVID mobile vaccine clinics are held outdoors and may be canceled in rainy or stormy conditions. To learn more about pediatric vaccinations (ages 5-11), we invite you to visit the [facility] webpage. https://[email or web address]/p ages/4774-Fzenh-Eixkjgkynls-Freq sjmhcb-Enayq-Lbuzqzdil.html To learn more about the COVID-19 vaccine, we invite you to visit the CDC website for a list of frequently asked questions. https://www.cdc.gov/coronavirus/ 2019-ncov/vaccines/faq.html [facility] Patient Portal Access Instructions: Stay connected with your healthcare team and access your personal medical information anytime with the [facility] Patient Portal. If you would like a full copy of your medical records please contact the [facility] Medical Records Department Monday through Monday between 8a.m. and 4:30p.m. Please follow the directions below to access the portal: 1.Access the email account you provided upon registration to the [facility].2.Look for an invitation email from [facility].3.Open the email and access the invitation link: Accept [facility]itation to [facility]4.Fill in the required batres to create your account. To access your account, visit [employer] or scan the Doormen. code above. Click the blue button labeled [...] you will allow to register on the [facility] Patient Portal for access to your information. You can also access the [facility] Patient Portal on the readeo andrew. Simply click on Health Records under Health Data and then click on the [employer] logo. HOW TO SAFELY DISPOSE OF PRESCRIPTION [...] Call your local pharmacy or go to http://bit.ly/3Y2Lh0b to find one close to you.3.Make use of household items: Use cat litter or old coffee grounds to dispose medications if other options are not available. Mix your drugs with these household products, seal them in an airtight container and throw it into the garbage. Call [facility]: [phone] to be sure your drugs can be [...] aware that I should contact my doctor. 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 Signature: Date/Time: Relationship to Patient: Witness Name/Signature: Date/Time: [facility] 03-18-2025 Note Exam Date Time Procedure Performing Provider Status 03/18/25 3:[address] Maxillofacial w/o Contrast LEYLA SHOOK MD; Auth (Verified) [id number] ORIGINAL EXAMINATION: CT OF THE FACE WITHOUT [...] 4:22:40 AM Ordering Provider: MAGDALENE POWELL RP [facility]09-30-2025 Note* Exam Date Time Procedure Performing Provider Status 03/18/25 3:[address] Spine Cervical w/o Contrast LEYLA SHOOK MD; Auth (Verified) [id number] ORIGINAL EXAMINATION: CT OF THE CERVICAL SPINE [...] 4:21:10 AM Ordering Provider: MAGDALENE POWELL RP [facility]09-30-2025 Note* Exam Date Time Procedure Performing Provider Status 03/18/25 3:[address] Head or Brain w/o Contrast LEYLA SHOOK MD; Auth (Verified) [id number] ORIGINAL EXAMINATION: CT OF THE HEAD WITHOUT [...] Report By: Ren Tompkins Electronically signed By Lyela Shook MD Dictated Date: 03/18/2025 3:19:25 AM Prelim Date: 03/18/2025 3:24:34 AM Sign Date: 03/18/2025 4:14:48 AM Ordering Provider: MAGDALENE POWELL RP [facility]08-01-2025 Telephone encounter Note* Telephone Encounter - Debby [...] Saldana LPN January 17, 2025 9:07 AM [facility]08-01-2025 Miscellaneous Notes* Telephone Encounter - Debby [...] 17, 2025 9:07 AM [facility] Discharge summary Author Ryan Guerin [facility] Note Date/Time January 08, 2025 4:09 pm [facility] Medical Records Department [address] [place] [address] Transfer to [facility] MR#: [id number] Acct: [id number] Name: PEDRO PABLO SIERRA Rep #:[id number] : 1950 74 From: Ryan Guerin DO PCP: Dr. Lorraine Mena MD Status:A DM IN Certification of patient admission REQUIRED AT TIME OF ADMISSION. I CERTIFY THAT POST-HOSPITAL ECF SERVICES ARE REQUIRED TO BE GIVEN ON AN IN-PATIENT BASIS BECAUSE OF THE ABOVE NAMED PATIENT'S NEED FOR HALFWAY CARE ON A CONTINUING BASIS FOR THE CONDITION(S) FOR WHICH HE/SHE WAS RECEIVING IN-PATIENT HOSPITAL SERVICES PRIOR TO HIS/HER TRANSFER TO THE [facility]. 01/08/25 1609<Electronically signed by Ryan Guerin [...] advanced diet as tolerated to cardiac per DEV MANAGER recommendations. 2. Initiate via PEG: Jevity 1.5Cal [...] in before D/C Order can be placed): Shelter Facility 01/08/25 0612 <Electronically signed by Ryan Guerin DO> Cosigner Signature (if applicable): CC: Dr. Frankie Galindo MD; Dr. Lorraine Mena MD ~ [facility] Work Phone: 1(571) 779-549007-23-2025 Hospital Discharge instructionsAdditional Instructions Date of Discharge: 01/08/25[facility] Work Phone: 1(839) 990-339607-23-2025 Progress note Author Ryan Guerin [facility] Note Date/Time January 08, 2025 7:25 am [facility] Medical Records Department [address] [facility] [place] [address] Progress Note - Hospitalist 01/07/251951 MR#: [id number] Acct: [id number] Name: PEDRO PABLO SIERRA Rep #:[id number] : 1950 74 From: Ryan Guerin DO PCP: Dr. Lorraine Mena MD Status:A DM IN Location: [place] [address] Reason for Visit Chief Complaint: Suspected PEG tomorrow found Subjective Subjective The date of this injury is 01/07/2025: Patient was seen and examined today, he iscurrently on 2 L of oxygen via nasal cannula, I restarted his tube feedings today, we are currently awaiting pre-CERT [facility] Objective Data Objective [...] 35 minutes Charges/Coding Visit Charges Inpatient E&M: 90407 Subs Hosp L2 01/08/25724 <Electronically signed by Ryan Guerin DO> Cosigner Signature (if applicable): CC: ~ Signed [facility] Work Phone: 1(489) 307-209507-22-2025 Progress note Author [facility] Note Date/Time January 07, 2025 7:52 pm [facility] Medical Records Department [address] [place] [address] Progress Note - Hospitalist 01/07/251943 MR#: [id number] Acct: [id number] Name: PEDRO PABLO SIERRA Rep #:[id number] : 1950 74 From: Ryan Guerin DO PCP: Dr. Lorraine Mena MD Status:A DM IN Location: [place] [address] Reason for Visit Chief Complaint: Suspected PEG [...] 35 minutes Charges/Coding Visit Charges Inpatient E&M: 56294 Subs Hosp L2 01/07/251951 <Electronically signed by Ryan Guerin DO> Cosigner Signature (if applicable): CC: ~ Signed [facility] Work Phone: 1(248) 114-927607-22-2025 Progress note Author Paulino Henderson [facility] Note Date/Time January 07, 2025 5:41 pm [facility] Medical Records Department [address] [place] [address] Progress Note 01/07/25 1739 MR#: [id number] Acct: [id number] Name: PEDRO PABLO SIERRA Shannan Rep #:[id number] : 1950 74 From: Paulino Henderson DO PCP: Dr. Lorraine Mena MD Status:A DM IN Location: [place] [address] Progress Note Patient had some respiratory distress [...] for daily usage. Visit Charges Inpatient E&M: 56148 Subs Hosp L3 01/07/25 1741 <Electronically signed by Paulino Henderson DO> Paulino Henderson DO Cosigner Signature (if applicable): CC: ~ Signed [facility] Work Phone: 1(399) 394-383707-21-2025 Consult note Author [facility]un [facility] Note Date/Time January 06, 2025 6:04 pm [facility] Medical Records Department [address] [place] [address] Anesthesia Postop Eval II 01/06/25 1755 MR#: [id number] Acct: [id number] Name: PEDRO PABLO SIERRA Rep #:[id number] : 1950 74 From: Segun Patel MD PCP: Dr. Lorraine Mena MD Status:A DM IN Y Race: C Location: [place] [address] 1-1 Anesthesia Postop Eval I Sum Postop Eval Completion status Anesthesia document: Postop Eval 1 completed: Yes Anesthesia Postop Eval I Summary Anesthesia Postop Eval I Summary: Anesthesia Postop Eval I: Assessment Summary Airway patent Yes 01/06/25 16:59 VIBRATORY PILE DRIVER.ABAR Spontaneous unlabored Yes 01/06/25 16:59 VIBRATORY PILE DRIVER.ABAR respirations Mental status Awake,Calm 01/06/25 16:59 VIBRATORY PILE DRIVER.ABAR nausea No 01/06/25 16:59 VIBRATORY PILE DRIVER.ABAR Vomiting No 01/06/25 16:59 VIBRATORY PILE DRIVER.ABAR Anesthesia Postop Eval I: Fluid Summary Crystalloid volume administer 100 01/06/25 16:59 VIBRATORY PILE DRIVER.ABAR (ml) Colloids volume administered ( ml) Blood Product volume administered (ml) Total IV fluid infused 100 01/06/25 16:59 VIBRATORY PILE DRIVER.YURI Anesthesia Postop Eval I: Summary Notes Anesthesia Complication No 01/06/25 16:59 VIBRATORY PILE DRIVER.ABAR Anesthesia Complication Comment: Post-operative progress note Anesthesia: [...] patient's current conditions. Patient transferred back to [facility] with oxygen. 01/06/251803 <Electronically signed by Segun corbett MD> Date _ Segun Patel MD Cosigner Signature: Date CC: ~ Signed [facility] Work Phone: 1(422) 627-261207-21-2025 Consult note Author Roman Holland [facility] Note Date/Time January 06, 2025 4:59 pm [facility] Medical Records Department [address] [place] [address] Anesthesia Postop Eval I 01/06/25 1658 MR#: [id number] Acct: [id number] Name: ARIEL SIERRAJAYY Pierce Rep #:[id number] : 1950 74 From: Roman reaves CRNA PCP: Dr. Lorraine Mena MD Status:A DM IN Y Race: C Location: [place] [address] 06-19 Anesthesia: Postop Eval I Current Vital [...] document: Postop Eval 1 completed: Yes 01/06/25 2242 <Electronically signed by Roman Greene VIBRATORY PILE DRIVER> Date _ Roman Holland VIBRATORY PILE DRIVER Cosigner Signature: Date CC: ~ Signed [facility] Work Phone: 1(547) 576-392607-21-2025 Consult note Author Segun [facility] Note Date/Time January 06, 2025 3:58 pm [facility] Medical Records Department [address] [place] [address] Pre-Anesthesia Evaluation 01/06/25 1542 MR#: [id number] Acct: [id number] Name: PEDRO PABLO SIERRA Rep #:[id number] : 1950 74 From: Segun Patel MD PCP: Dr. Lorraine Mena MD Status:A DM IN Y Race: C Location: [place] [address] ASA Classification* ASA Classification ASA Classification: 4 [...] (Patient's ex- is the medical power of coil rewind machine operator (Joseph Burrlel).) Anesthesia Focused Assessment* Temperature: 97.3 F Pulse [...] tube placement. 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 - review engineer: Anesthesia History - review engineer Hx Hospitalization Yes 08/08/20 16:59 Any Problems [...] Yes NPO since: 00:00 PONV PONV - review engineer: PONV - review engineer Female HX of Motion Sickness HX of N/V After Surgery Non-Smoker Duration of Surgery greater than 60 minutes Number of Risk Factors PONV Score Height & Weight Height & Weight: Anesthesia: Height & Weight Height 6 ft 01/06/25 08:50 Weight: 66.5 kg 01/06/25 08:50 Body Mass Index (BMI) 19.8 01/06/25 05:00 Respiratory Assessment Respiratory Assessment - review engineer: Respiratory Tract Infection Hx - review engineer Hx Respiratory Tract Infection No 12/23/24 09:15 Any additional information?: Yes Hx Respiratory Tract Infection: Yes History of Anesthesia Respiratory Infection details: Patient had an episode of aspiration pneumonia yesterday at the longterm. Patient had to be put up to 10 L of oxygen on the Ventimask. He is currently on 8 L nasal cannula. STOP Sleep Apnea STOP Sleep Apnea - review engineer: STOP Sleep Apnea - review engineer Hx Hypertension Yes 01/05/25 14:48 Hx Sleep [...] Tobacco Use History Tobacco Use History - review engineer: Tobacco Use History - review engineer Tobacco Use Cigarettes 12/26/24 04:00 Smoking Status Unknown if ever smoked 01/05/25 14:48 Hx Tobacco Use No: unknown 01/05/25 14:48 Years Smoking Packs Smoked per Day Smoking Cessation Date was Yes - quit smoking within 15 01/05/25 09:44 within the last 15 years years Hx Smoking Cessation Date Hx Smoking Cessation No 01/05/25 14:48 Counseling Hematologic Medial History Hematologic Hx - review engineer: Hematologic Medical Hx - supervisor taping Hx of Blood Transfusion No 01/05/25 14:48 [...] confused, unrespo /Reproduction History /Reproductive History - review engineer: /Reproductive Hx- review engineer Hx Now Gestational Age (in weeks): EDC: [...] 01/06/25 14:28 Carbamazepine 200 Mg/10 Ml Udc ([facility]) GT Not Given 4X/DAY LEON Cholecalciferol 50 [...] mls @ 15 mls/hr 01/05/25 15:14 IV .[id number] PRN Saline Flush Sodium Chloride 250 mls @ 15 mls/hr 01/05/25 15:14 IV .[id number] PRN Additional IVPB Infusion Sodium Chloride 1,000 [...] 15 Mg Tablet GT Not Given QHS LOEN Ondansetron HCl 4 mg 01/05/25 14:46 Ondansetron [...] no additional complaints, except as documented. 01/06/25 2509 <Electronically signed by Segun corbett MD> Date _ Segun Patel MD Cosigner Signature: Date CC: ~ Signed [facility] Work Phone: 1(257) 428-830507-21-2025 Procedure [facility] 01-06-2025 Procedure [facility]07-21-2025 Radiology Diagnostic study [facility]07-20-2025 Consult note Author Paulino Friend [facility] Note Date/Time January 05, 2025 7:[address] [facility] Medical Records Department [address] [place] [address] Consultation - GI 01/05/251945 MR#: [id number] Acct: [id number] Name: PEDRO PABLO SIERRA Rep #:[id number] : 1950 74 From: Paulino Henderson DO PCP: Dr. Lorraine Mena MD Status:A DM IN Location: [place] [address] HPI Consult Data Date of Consult: 01/05/25 [...] to put the PEG tube back in. [facility] Medical History Acute CVA (cerebrovascular accident) Aphasia [...] Std Deviation 48.0 H, RDW Coeff of Ayl 15.1 H, Plt Count 462 H, MPV 9.8, Immature Gran % (Auto) 0.500, Neut % (Auto) 76.7 H, Lymph % (Auto) 14.2 L, Emanuel % (Auto) 7.0, Eos % (Auto) 1.2, [...] IMPRESSION: COPD. No acute findings. Reading Location: [id number] KUB X-Ray 01/05/25 13:02 IMPRESSION: A PEG tube tip is projected in the region of the stomach. Contrast material is identified within the stomach. There is no extravasation of the contrast. Reading Location: [id number] Assessment & Plan Assessment/Plan (1) PEG tube malfunction: PLAN: 74-year-old with multiple comorbidities who recently pulled his PEG tube out. We will take him for endoscopy tomorrow for PEG tube replacement. His bowel return was explained alternatives, benefits, risk including understanding bleeding, infection, sepsis, perforation, need for more surgery and . He will have an ASA of 3. Charges/Coding Visit Charges Inpatient E&M: 97339 Init Hosp L3 01/05/25 1950 <Electronically signed by Paulino Friend DO> Cosigner Signature (if applicable): CC: Dr. Lorraine Mena MD~ Signed [facility] Work Phone: 1(491) 219-638707-20-2025 History and physical note Author Frankie Galindo [facility] Note Date/Time January 05, 2025 2:02 pm [facility] Medical Records Department [address] [place] [address] H&P Exam - Hospitalist 01/05/25 1336 MR#: [id number] Acct: [id number] Name: PEDRO PABLO SIERRA Rep #:[id number] : 1950 74 From: Frankie Galindo MD PCP: Dr. Lorraine Mena MD Status:A DM IN Location: [place] [address] HPI - General General Date of Admission: 01/05/25 Date of Service: 01/05/25 Chief Complaint: Suspected PEG tomorrow found HPI Narrative PEDRO PABLO SIERRA, is a 74 M with recent diagnosis of acute left MCA CVA discharged to a custodial facility. Patient had a PEG tube placed [...] to a monitored bed for further management [facility] Medical History Acute CVA (cerebrovascular accident) Aphasia [...] 76.7 H, Lymph % (Auto) 14.2 L, Emanuel % (Auto) 7.0, Eos % (Auto) 1.2, [...] IMPRESSION: COPD. No acute findings. Reading Location: [id number] KUB X-Ray 01/05/25 13:02 IMPRESSION: A PEG tube tip is projected in the region of the stomach. Contrast material is identified within the stomach. There is no extravasation of the contrast. 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 [...] ? Currently on apixaban CODE STATUS from [facility] documentation DNR CCA no intubation reordered Time spent in the patient's overall evaluation,decision-making process, review of diagnostic data, adjustment of management, discussion with other providers, nursing nursing and ancillary staff involved in patient's care documentation, 78 Minutes Charges/Coding Visit Charges Inpatient E&M: 65550 Init Hosp L3 01/05/25 1402 <Electronically signed by Frankie Galindo MD> Cosigner Signature (if applicable): CC: Dr. Frankie Galindo MD; Dr. Lorraine Mena MD~ Signed [facility] Work Phone: 1(822) 720-864207-20-2025 Discharge summary Author Fco Monroy [facility] Note Date/Time January 05, 2025 1:41 pm [facility] Medical Records Department [address] [place] [address] Emergency Department Summary 01/05/25 MR#: [id number] Acct: [id number] Name: PEDRO PABLO SIERRA Rep #:[id number] : 1950 74 From: Fco Monroy MD [...] sent in because of malfunctioning gastrostomy tube. Naturopathic Oncology Provider states he was sent in for hypertension. Apparently their blood pressure readings were elevated and reason the chief complaint is hypertension. Per the longterm report to nursing staff he was sent in because of gastrostomy tube problems. Reading summary of care patient with history of COPD/asthma with chronic hypoxemic respiratory failure on 2 L by nasal cannula. There was no mention of aspiration or risks of aspiration. Prior similar symptoms: No Recent Illness/Hospitalization: Yes [facility] Medical History Acute CVA (cerebrovascular accident) [...] 76.7 H Lymph % (Auto) 14.2 L Emanuel % (Auto) 7.0 Eos % (Auto) 1.2 [...] IMPRESSION: COPD. No acute findings. Reading Location: [facility] KUB X-Ray 01/05/25 13:02 IMPRESSION: A PEG tube tip is projected in the region of the stomach. Contrast material is identified within the stomach. There is no extravasation of the contrast. Reading Location: [facility] Radiology report was reviewed. Since there is [...] respiratory failure with hypoxia, Current use of group home anticoagulation, CVA (cerebral vascular accident), COPD (chronic [...] MD [Primary Care Provider] - Print Language: Pakistani Disposition Disposition: Assisted Living What to do if you have Problems For any increased pain, shortness of breath, bleeding, nausea or vomiting, chestpain, or any unexpected problems, contact your Primary Care Provider. Call [facility] ([phone]) or report to the closest Emergency Room. Call 911 if necessary. 01/05/25 1341 <Electronically signed by Fco Monroy MD> Cosigner Signature (if applicable): CC: Dr. Lorraine Mena MD ~ Signed [facility] Work Phone: 1(369) 881-774407-20-2025 Discharge summary Author Fco Monroy [facility] Note Date/Time January 05, 2025 1:[address] [facility] Medical Records Department [address] [place] [address] Emergency Department Summary 01/05/25 MR#: [id number] Acct: [id number] Name: PEDRO PABLO SIERRA Rep #:[id number] : 1950 74 From: Fco Monroy MD [...] sent in because of malfunctioning gastrostomy tube. Naturopathic Oncology Provider states he was sent in for hypertension. Apparently their blood pressure readings were elevated and reason the chief complaint is hypertension. Per the longterm report to nursing staff he was sent in because of gastrostomy tube problems. Reading summary of care patient with history of COPD/asthma with chronic hypoxemic respiratory failure on 2 L by nasal cannula. There was no mention of aspiration or risks of aspiration. Prior similar symptoms: No Recent Illness/Hospitalization: Yes PFSH [facility] Medical History Acute CVA (cerebrovascular accident) Aphasia [...] 76.7 H Lymph % (Auto) 14.2 L Emanuel % (Auto) 7.0 Eos % (Auto) 1.2 [...] IMPRESSION: COPD. No acute findings. Reading Location: [id number] KUB X-Ray 01/05/25 13:02 IMPRESSION: A PEG tube tip is projected in the region of the stomach. Contrast material is identified within the stomach. There is no extravasation of the contrast. Reading Location: [id number] Radiology report was reviewed. Since there is [...] respiratory failure with hypoxia, Current use of log sorter anticoagulation, CVA (cerebral vascular accident), COPD (chronic [...] MD [Primary Care Provider] - Print Language: Pakistani Disposition Disposition: Assisted Living What to do if you have Problems For any increased pain, shortness of breath, bleeding, nausea or vomiting, chestpain, or any unexpected problems, contact your Primary Care Provider. Call [facility] ([phone]) or report to the closest Emergency Room. Call 911 if necessary. 01/05/25 1341 <Electronically signed by Fco Monroy MD> Cosigner Signature (if applicable): CC: Dr. Lorraine Mena MD ~ Signed [facility] Work Phone: 1(242) 647-122907-20-2025 Radiology Diagnostic study [facility]07-20-2025 Radiology Diagnostic study [facility]07-18-2025 Discharge [facility] Date/Time January 03, 2025 8:01 am [facility] Medical Records Department [address] [place] [address] Emergency Department Summary 01/03/25 MR#: [id number] Acct: [id number] Name: PEDRO PABLO SIERRA Rep #:[id number] : 1950 74 From: Arnulfo Zhao DO [...] with isopropanol, and inserted a replacement 20 Taiwanese gastrostomy tube with a 20 cc balloon [...] not ambulatory anyway and already in a longterm. 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 intermediate states that this morning he fell out [...] further history based on his aphasia/mute status [facility] Medical History Acute CVA (cerebrovascular accident) [...] is at his baseline mental status per longterm. Nursing reported he fell out of bed [...] the patient's PEG tube is a 20 Taiwanese. Therefore we will obtain a similar size in the ER and attempt to replace the PEG tube at this time. The replacement of the PEG tube and imaging studies are still pending and therefore patient be signed out to Dr. Jauregui. I do feel that if all images arenegative patient will be safe to return to the longterm once the PEG tube has been replaced. History & Record Review Discussion w/independent historian: EMS personnel Additional record(s) reviewed:: Prior inpatient record Discharge Plan Triage Chief Complaint: Fall ED Provider: Arnulfo Zhao Dx/Rx/DC Orders Clinical Impression: Accidental fall, PEG tube malfunction, Current use of log sorter anticoagulation, CVA (cerebral vascular accident), COPD (chronic [...] MD [Primary Care Provider] - Print Language: Pakistani What to do if you have Problems For any increased pain, shortness of breath, bleeding, nausea or vomiting, chestpain, or any unexpected problems, contact your Primary Care Provider. Call [facility] ([phone]) or report to the closest Emergency Room. Call 911 if necessary. 01/03/25 0658 <Electronically signed by Arnulfo Zhao DO> Cosigner Signature (if applicable): CC: Dr. Daija Morton MD ~ Signed [facility] Work Phone: 1(172) 490-248507-18-2025 Radiology Diagnostic study [facility]07-18-2025 Radiology Diagnostic study [facility]07-18-2025 Radiology Diagnostic study [facility] 01-03-2025 Radiology Diagnostic study [facility]07-10-2025 Discharge summary Author Shilpa Contreras [facility] Note Date/Time December 26, 2024 3:[address] [facility] Medical Records Department [address] [place] [address] Discharge Summary 12/26/24 1533 MR#: [id number] Acct: [id number] Name: PEDRO PABLO SIERRA Shannan Rep #:[id number] : 1950 74 From: Shilpa Contreras MD PCP: Dr. Daija Morton MD Status:ADM I N Location: [place] [address] Providers Date of Admission: 12/18/24 Date of [...] he had reported lacking healthcare power of coil rewind machine operator and living will but had [...] Acute COPD Exacerbation who re-presentED to the [facility] ED on 12/17/24 w/ severe [...] s/p PEG placement with following transition from VA ASA->eliquis, d/c IV keppra and resume liquid [...] 84.7 H, Lymph % (Auto) 6.5 L, Emanuel % (Auto) 7.8, Eos % (Auto) 0.2, [...] continued nutrition consultation and evaluation at the custodial facility for ongoing assessments and alteration to [...] Privileges] - (Follow-up with Neurology, may see MACHINE PRINTER HOSE within 2-4 weeks of discharge.) Disposition Disposition (needs filled in before D/C Order can be placed): Shelter Facility Charges/Coding Visit Charges Inpatient E&M: 88397 Disch Hosp >30min 12/26/24 1543 <Electronically signed by Shilpa Contreras MD> Cosigner Signature (if applicable): CC: Dr. Shilpa Contreras MD; Dr. Diaja Morton MD~ Signed [facility] Work Phone: 1(939) 307-926207-10-2025 [facility]07-10-2025 Telephone encounter Note* Telephone Encounter - Anjel Braga APRN.CNP - 12/26/2024 3:13 PM EDT Admitted to hospital. Will review further at follow up. Anjel Braga APRN.CNP [facility]07-10-2025 Miscellaneous Notes* Telephone Encounter - Anjel Braga APRN.CNP - 12/26/2024 3:13 PM EDT Admitted to hospital. Will review further at follow up. Anjel Braga APRN.CNP [facility] Progress note Author Shilpa Contreras [facility] Note Date/Time December 26, 2024 12:3 1pm [facility] Medical Records Department [address] [place] [address] Progress Note - Hospitalist 12/26/24 0700 MR#: [id number] Acct: [id number] Name: PEDRO PABLO SIERRA Rep #:[id number] : 1950 74 From: Shilpa Contreras MD PCP: Dr. Daija Morton MD Status:ADM I N Location: [place] [address] Reason for Visit Reason for Visit: Diagnoses Cerebral infarction, unspecified (12/18/24) Facial weakness (12/18/24) Aphasia (12/18/24) Subjective Subjective Patient with no acute events overnight per nursing report. Blood pressure has vacillated but improved with initiation of low-dose hydralazine per PEG. Given continued clinical stability and at this point only awaiting custodial facility discussed with nursing staff and patient [...] Acute COPD Exacerbation who re-presents to the [facility] ED on 12/17/24 w/ severe [...] s/p PEG placement with following transition from VA ASA->eliquis,d/c IV keppra and resume liquid carbamazepine, [...] he had reported lacking healthcare power of coil rewind machine operator and living will but had noted he would wanthis ex- Joseph be his medical decision-maker at that time if absolutely necessary. Full Code status. Charges/Coding Visit Charges Inpatient E&M: 11696 Subs Hosp L2 NIHSS NIHSS Nursing Documentation NIHSS Nursing Documentation: NIHSS: Ischemic Stroke/TIA Start: 12/17/24 18:52 Text: For PCU Patients: NIH and Neuro Check every 4 Status: Complete hours, PRN and with change in RN caregiver. Freq: Q12 Protocol: Activity Type Activity Date Activity User E-sign Co-sign Detail Recorded Client Recorded Date Recorded By Document 12/22/24 08:15 DS [id number] 12/22/24 08:19 DS 12/22/24 08:15 NIH Stroke [...] Cosigner Signature (if applicable): CC: ~ Signed [facility] Work Phone: 1(200) 620-560407-09-2025 Progress note Author Shilpa Contreras [facility] Note Date/Time December 25, 2024 1:49p m [facility] Medical Records Department [address] [place] [address] Progress Note - Hospitalist 12/25/24 0652 MR#: [id number] Acct: [id number] Name: PEDRO PABLO SIERRA Rep #:[id number] : 1950 74 From: Shilpa Contreras MD PCP: Dr. Daija Morton MD Status:ADM I N Location: [place] [address] Reason for Visit Reason for Visit: Diagnoses [...] 82.3 H, Lymph % (Auto) 8.0 L, Emanuel % (Auto) 8.4, Eos % (Auto) 0.3, [...] Acute COPD Exacerbation who re-presents to the [facility] ED on 12/17/24 w/ severe [...] s/p PEG placement with following transition from VA ASA->eliquis,d/c IV keppra and resume liquid carbamazepine, [...] he had reported lacking healthcare power of coil rewind machine operator and living will but had noted he would wanthis ex- Joseph be his medical decision-maker at that time if absolutely necessary. Full Code status. Charges/Coding Visit Charges Inpatient E&M: 04136 Subs Hosp L2 NIHSS NIHSS Nursing Documentation NIHSS Nursing Documentation: NIHSS: Ischemic Stroke/TIA Start: 12/17/24 18:52 Text: For PCU Patients: NIH and Neuro Check every 4 Status: Complete hours, PRN and with change in RN caregiver. Freq: Q12 Protocol: Activity Type Activity Date Activity User E-sign Co-sign Detail Recorded Client Recorded Date Recorded By Document 12/22/24 08:15 DS [id number] 12/22/24 08:19 DS 12/22/24 08:15 NIH Stroke [...] Cosigner Signature (if applicable): CC: ~ Signed [facility] Work Phone: 1(140) 539-381107-08-2025 Progress note Author Paulino Friend [facility] Note Date/Time December 24, 2024 5:58p m [facility] Medical Records Department [address] [place] [address] Progress Note 12/24/24 1755 MR#: [id number] Acct: [id number] Name: PEDRO PABLO SIERRA Rep #:[id number] : 1950 74 From: Paulino Henderson DO PCP: Dr. Daija Morton MD Status:ADM I N Location: [place] [address] Progress Note Patient is still tolerating PEG [...] and anticoagulation therapy. Visit Charges Inpatient E&M: 71987 Subs Hosp L2 12/24/244 <Electronically signed by Paulino Henderson DO> Paulino Henderson DO Cosigner Signature (if applicable): CC: ~ Signed [facility] Work Phone: [phone]) 200-220007-08-2025 Discharge summary Author Shilpa Contreras [facility] Note Date/Time December 24, 2024 5:11p m [facility] Medical Records Department [address] [place] [address] Transfer to Extended Care MR#: [id number] Acct: [id number] Name: PEDRO PABLO SIERRA Rep #:[id number] : 1950 74 From: Shilpa Contreras MD PCP: Dr. Daija Morton MD Status:ADM I N Certification of patient admission REQUIRED AT TIME OF ADMISSION. 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 2. Will order to start at [...] continued nutrition consultation and evaluation at the custodial facility for ongoing assessments and alteration to [...] Privileges] - (Follow-up with Neurology, may see MACHINE PRINTER HOSE within 2-4 weeks of discharge.) Disposition Disposition (needs filled in before D/C Order can be placed): Shelter Facility 12/24/24 1711 <Electronically signed by Shilpa Contreras MD> Cosigner Signature (if applicable): CC: Daylin Schmitt; Gogo Gill MD; Chrystal Collier MD; Dr. Paul Yang MD;Dr. Roman Patel DO; Dr. Aung Peres MD; Dr. Daija Morton MD; Dr. Ryan Vargas MD; Dr. Lisha Talamantes DO; Jo Hughes MD; Luan Mcgraw MD; DO Kerri; Angelo Wiley MD; Neelam Almendarez DO ~ [facility] Work Phone: 1(370) 892-373307-08-2025 Progress note Author [facility] Note Date/Time December 24, 2024 2:56p m [facility] Medical Records Department [address] [place] [address] Progress Note - Neurology 12/24/24 1451 MR#: [id number] Acct: [id number] Name: PEDRO PABLO SIERRA Rep #:[id number] : 1950 74 From: Maya Talamantes MD PCP: Dr. Daija Morton MD Status:ADM I N Location: [place] [address] Objective Data Objective Data Vital Signs: Vital [...] 82.4 H, Lymph % (Auto) 8.5 L, Emanuel % (Auto) 7.7, Eos % (Auto) 0.4, [...] on keppra, PVD, and CDwho presented to [facility] ED on 12/17/2024 with dysarthria and [...] bc patient does not cooperate- swats the obstetrical tech away. Neurological examination limited by decreased mental [...] Date Recorded By Document 12/22/24 08:15 DS [id number] 12/22/24 08:19 DS 12/22/24 08:15 NIH Stroke [...] Cosigner Signature (if applicable): CC: ~ Signed [facility] Work Phone: 1(614) 949-725807-08-2025 Progress note Author Shilpa Contreras [facility] Note Date/Time December 24, 2024 2:46p m [facility] Medical Records Department [address] [place] [address] Progress Note - Hospitalist 12/24/24705 MR#: [id number] Acct: [id number] Name: PEDRO PABLO SIERRA Rep #:[id number] : 1950 74 From: Shilpa Contreras MD PCP: Dr. Daija Morton MD Status:ADM I N Location: [place] [address] Reason for Visit Reason for Visit: Diagnoses [...] 82.4 H, Lymph % (Auto) 8.5 L, Emanuel % (Auto) 7.7, Eos % (Auto) 0.4, [...] Acute COPD Exacerbation who re-presents to the [facility] ED on 12/17/24 w/ severe [...] s/p PEG placement thus will transition from VA ASA->eliquis, d/c IV keppra and resume liquid carbamazepine,transition to HTN regimen per PEG, addback statin per PEG. 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 Patient and daughter have been working with healthcare team closely and patient is maintained full code at this time. Charges/Coding Visit Charges Inpatient E&M: 17998 Subs Hosp L3 NIHSS NIHSS Nursing Documentation NIHSS Nursing Documentation: NIHSS: Ischemic Stroke/TIA Start: 12/17/24 18:52 Text: For PCU Patients: NIH and Neuro Check every 4 Status: Complete hours, PRN and with change in RN caregiver. Freq: Q12 Protocol: Activity Type Activity Date Activity User E-sign Co-sign Detail Recorded Client Recorded Date Recorded By Document 12/22/24 08:15 DS [id number] 12/22/24 08:19 DS 12/22/24 08:15 NIH Stroke [...] Cosigner Signature (if applicable): CC: ~ Signed [facility] Work Phone: 1(491) 908-398707-08-2025 Telephone encounter Note* Telephone Encounter - Daija Morton MD - 12/24/2024 2:09 PM EDT Noted. Daija Tripp MD [facility]07-08-2025 Miscellaneous Notes* Telephone Encounter - Daija Morton MD - 12/24/2024 2:09 PM EDT Noted. Daija Tripp MD * Telephone Encounter - Kelly Zelaya RN - 12/17/2024 2:20 PM EDT Frank REDD [facility] called in to give an update on [...] use. Kelly Zelaya RN [facility]25 Consult note Author Kyaw Borrego [facility] Note Date/Time December 23, 2024 3:51p [facility] Medical Records Department [address] [place] [address] Anesthesia Postop Eval II 12/23/24 1551 MR#: [id number] Acct: [id number] Name: PEDRO PABLO SIERRA Rep #:[id number] : 1950 74 From: Kyaw Borrego MD PCP: Dr. Daija Morton MD Status:ADM I N Y Race: C Location: [place] [address] 1-1 Anesthesia Postop Eval I Sum Postop Eval Completion status Anesthesia document: Postop Eval 1 completed: Yes Anesthesia Postop Eval I Summary Anesthesia Postop Eval I Summary: Anesthesia Postop Eval I: Assessment Summary Airway patent Yes 12/23/24 15:30 VIBRATORY PILE DRIVER.CSIR Spontaneous unlabored Yes 12/23/24 15:30 VIBRATORY PILE DRIVER.CSIR respirations Mental status nausea No 12/23/24 15:30 VIBRATORY PILE DRIVER.CSIR Vomiting No 12/23/24 15:30 VIBRATORY PILE DRIVER.CSIR Anesthesia Postop Eval I: Fluid Summary Crystalloid volume administer 200 12/23/24 15:30 VIBRATORY PILE DRIVER.CSIR (ml) Colloids volume administered ( ml) Blood Product volume administered (ml) Total IV fluid infused 200 12/23/24 15:30 VIBRATORY PILE DRIVER.CSIR Anesthesia Postop Eval I: Summary Notes Anesthesia Complication No 12/23/24 15:30 VIBRATORY PILE DRIVER.CSIR Anesthesia Complication Comment: Post-operative progress note Anesthesia: Postop Eval II Evaluation Mental status: Awake Pain Level: 0 nausea: No Vomiting: No 12/23/24 1551 <Electronically signed by Kyaw Borrego MD > Date _ Kyaw Ramirezigner Signature: Date CC: ~ Signed [facility] Work Phone: 1(555) 832-271207-07-2025 Consult note [facility] Note Date/Time December 23, 2024 3:32p m [facility] Medical Records Department [address] [place] [address] Anesthesia Postop Eval I 12/23/24 1530 MR#: [id number] Acct: [id number] Name: PEDRO PABLO SIERRA Rep #:[id number] : 1950 74 From: Rocío Barrios CRNA PCP: Dr. Daija Morton MD Status:ADM I N Y Race: C Location: [place] [address] 06-19 Anesthesia: Postop Eval I Current Vital [...] 12/23/24 1532 <Electronically signed by Rocío smith VIBRATORY PILE DRIVER> Date _ Rocío Barrios CRNA Cosigner Signature: Date CC: ~ Signed [facility] Work Phone: 1(887) 312-360907-07-2025 Progress note Author Shilpa Contreras [facility] Note Date/Time December 23, 2024 3:24p m [facility] Medical Records Department [address] [place] [address] Progress Note - Hospitalist 12/23/24 0719 MR#: [id number] Acct: [id number] Name: PEDRO PABLO SIERRA Rep #:[id number] : 1950 74 From: Shilpa Contreras MD PCP: Dr. Daija Morton MD Status:ADM I N Location: [place] [address] Reason for Visit Reason for Visit: Diagnoses [...] Acute COPD Exacerbation who re-presents to the [facility] ED on 12/17/24 w/ severe [...] Acute COPD Exacerbation who re-presents to the [facility] ED on 12/17/24 w/ severe [...] prophylaxis. Once patient requires PEG tube and custodial facility placement is pre-CERT obtained will transition [...] DVT prophylaxis: As noted currently maintained on VA aspirin therapy, planinitiation of Eliquis therapy following PEG tube placement likely 12/25/2019 5 AM. #17. 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 Patient and daughter have been working with healthcare team closely and patient is maintained full code at this time. Charges/Coding Visit Charges Inpatient E&M: 71484 Subs Hosp L3 NIHSS NIHSS Nursing Documentation NIHSS Nursing Documentation: NIHSS: Ischemic Stroke/TIA Start: 12/17/24 18:52 Text: For PCU Patients: NIH and Neuro Check every 4 Status: Complete hours, PRN and with change in RN caregiver. Freq: Q12 Protocol: Activity Type Activity Date Activity User E-sign Co-sign Detail Recorded Client Recorded Date Recorded By Document 12/22/24 08:15 DS [id number] 12/22/24 08:19 DS 12/22/24 08:15 NIH Stroke [...] Rasheeda Signature (if applicable): CC: ~ Signed [facility] Work Phone: 1(635) 564-742707-07-2025 Procedure [facility] 12-23-2024 Procedure [facility]07-07-2025 Progress note Author Paulino Friend [facility] Note Date/Time December 23, 2024 2:46p m [facility] Medical Records Department [address] [place] [address] Progress Note 12/23/24 1445 MR#: [id number] Acct: [id number] Name: PEDRO PABLO SIERRA Rep #:[id number] : 1950 74 From: Paulino Henderson DO PCP: Dr. Daija Morton MD Status:ADM I N Location: [place] [address] Progress Note Patient with esophageal dysphagia. She [...] ASA of 3. Visit Charges Inpatient E&M: 83438 Subs Hosp L2 12/23/24 1446 <Electronically signed by Paulino Friend DO> Paulino Friend DO Cosigner Signature (if applicable): CC: ~ Signed [facility] Work Phone: 1(633) 834-333307-07-2025 Consult note Author Kyaw Borrego [facility] Note Date/Time December 23, 2024 2:02p m [facility] Medical Records Department [address] [place] [address] Pre-Anesthesia Evaluation 12/23/24 1400 MR#: [id number] Acct: [id number] Name: PEDRO PABLO SIERRA Rep #:[id number] : 1950 74 From: Kyaw Borrego MD PCP: Dr. Daija Morton MD Status:ADM I N Y Race: C Location: [place] [address] 1-1 ASA Classification* ASA Classification ASA Classification: [...] PEG placement. 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 - review engineer: Anesthesia History - review engineer Hx Hospitalization Yes 08/08/20 16:59 Any Problems [...] take am of surgery PONV PONV - review engineer: PONV - review engineer Female HX of Motion Sickness HX of N/V After Surgery Non-Smoker Duration of Surgery greater than 60 minutes Number of Risk Factors PONV Score Height & Weight Height & Weight: Anesthesia: Height & Weight Height 5 ft 8 in 12/23/24 09:50 Weight: 73 kg 12/23/24 09:50 Body Mass Index (BMI) 24.5 12/23/24 09:00 Respiratory Assessment Respiratory Assessment - review engineer: Respiratory Tract Infection Hx - review engineer Hx Respiratory Tract Infection No 12/23/24 09:15 STOP Sleep Apnea STOP Sleep Apnea - review engineer: STOP Sleep Apnea - review engineer Hx Hypertension Yes 12/23/24 09:06 Hx Sleep [...] Tobacco Use History Tobacco Use History - review engineer: Tobacco Use History - review engineer Tobacco Use Cigarettes 12/23/24 09:06 Smoking Status Current every day smoker 12/23/24 09:06 Hx Tobacco Use Yes 12/17/24 20:07 Years Smoking Packs Smoked per Day Smoking Cessation Date was within the last 15 years Hx Smoking Cessation Date Hx Smoking Cessation No 12/23/24 09:06 Counseling Hematologic Medial History Hematologic Hx - review engineer: Hematologic Medical Hx - supervisor taping Hx of Blood Transfusion Hx of Transfusion in last 3 Months Date of Last Transfusion (if within last 3 months) Ever experience any problems with transfusion(s)? Specify any problems Hx of Preganancy in last 3 Months Nurse Filling Out Transfusion & Questions: Date: Time: Patient unable to answer at Yes 12/17/24 20:07 this time (ie. confused, unrespo /Reproduction History /Reproductive History - review engineer: /Reproductive Hx- review engineer Hx Now Gestational Age (in weeks): EDC: [...] mls @ 15 mls/hr 12/17/24 19:51 IV .[id number] PRN Saline Flush Sodium Chloride 250 mls @ 15 mls/hr 12/17/24 19:51 IV .[id number] PRN Additional IVPB Infusion Levetiracetam 1,000 mg in 100 mls @ 400 mls/hr 12/17/24 22:00 12/23/24 09:45 IV Infused Q12 LEON Infusion Pantoprazole Sodium 40 mg/ 100 mls @ 300 mls/hr 12/19/24 10:00 12/23/24 09:26 Sodium Chloride IV Infused Q24 LEON Infusion Lactated Ringer's 1,000 mls @ 75 mls/hr 12/18/24 15:30 12/23/24 13:10 IV 0 mls/hr .[id number] LEON Infusion Thiamine HCl 250 mg/ Sodium [...] 40 Mg Tablet PO Not Given DAILY [facility] Senna/Docusate Sodium 1 tablet 12/17/24 18:52 Senna/Docusate Sodium 1 Tablet PO BID PRN PRN Constipation Sertraline HCl 100 mg 12/18/24 10:00 12/18/24 09:52 Sertraline 100 Mg Tablet PO Not Given DAILY [facility] Sodium Chloride 10 - 40 ml 12/17/24 19:51 12/23/24 13:09 0.9% Saline Lock 10 Ml Syringe IV 10 ml UD PRN Administration SALINE FLUSH Tamsulosin HCl 0.4 mg 12/18/24 22:00 Tamsulosin Hcl 0.4 Mg Capsule PO QHS [facility] Medical History Weakness Debility [...] MD Cosigner Signature: Date CC: ~ Signed [facility] Work Phone: 1(346) 564-722607-07-2025 Hospital Discharge instructionsAdditional Instructions ADDITIONAL DISCHARGE INSTRUCTIONS/INFORMATION: [...] continued nutrition consultation and evaluation at the custodial facility for ongoing assessments and alteration to [...] which appears recent baseline. Date of Discharge: 12/26/24[facility] Work Phone: 1(565) 129-530207-06-2025 Progress note Author Lisha Talamantes [facility] Note Date/Time December 22, 2024 3:35p gabino [facility] Medical Records Department [address] [place] [address] Progress Note - Hospitalist 12/22/24 1534 MR#: [id number] Acct: [id number] Name: PEDRO PABLO SIERRA R Rep #:[id number] : 1950 74 From: Lisha Talamantes DO PCP: Dr. Daija Morton MD Status:ADM I N Location: [place] [address] Hospitalist Note Extensive conversation with POA's at [...] Cosigner Signature (if applicable): CC: ~ Signed [facility] Work Phone: 1(681) 899-942807-06-2025 Progress note Author Lisha Talamantes [facility] Note Date/Time December 22, 2024 1:13p m [facility] Medical Records Department [address] [place] [address] Progress Note - Hospitalist 12/22/24 0733 MR#: [id number] Acct: [id number] Name: PEDRO PABLO SIERRA R Rep #:[id number] : 1950 74 From: Lisha Talamantes DO PCP: Dr. Daija Morton MD Status:ADM I N Location: [place] [address] Reason for Visit Reason for Visit: facial [...] Full code Charges/Coding Visit Charges Inpatient E&M: 91502 Subs Hosp L2 NIHSS NIHSS Nursing Documentation NIHSS Nursing Documentation: NIHSS: Ischemic Stroke/TIA Start: 12/17/24 18:52 Text: For PCU Patients: NIH and Neuro Check every 4 Status: Active hours, PRN and with change in RN caregiver. Freq: Q12 Protocol: Activity Type Activity Date Activity User E-sign Co-sign Detail Recorded Client Recorded Date Recorded By Document 12/21/24 21:20 [id number] 12/21/24 21:19 12/21/24 21:20 NIH Stroke Scale [...] Cosigner Signature (if applicable): CC: ~ Signed [facility] Work Phone: 1(437) 873-310907-06-2025 Progress note Author Maya Talamantes [facility] Note Date/Time December 22, 2024 9:18a m [facility] Medical Records Department [address] [place] [address] Progress Note - Neurology 12/22/24913 MR#: [id number] Acct: [id number] Name: PEDRO PABLO SIERRA Rep #:[id number] : 1950 74 From: Maya Talamantes MD PCP: Dr. Daija Morton MD Status:ADM I N Location: [place] [address] Objective Data Objective Data Vital Signs: Vital [...] on keppra, PVD, and CDwho presented to [facility] ED on 12/17/2024 with dysarthria and [...] Continue daily anti-platelet med (Asa) for now. intermission coordinator will need AC for Afib stroke prevention [...] Date Recorded By Document 12/22/24 08:15 DS [id number] 12/22/24 08:19 DS 12/22/24 08:15 NIH Stroke [...] Cosigner Signature (if applicable): CC: ~ Signed [facility] Work Phone: 1(430) 835-479207-05-2025 Progress note Author Maya Talamantes [facility] Note Date/Time December 21, 2024 1:50p m [facility] Medical Records Department [address] [place] [address] Progress Note - Neurology 12/21/24 1336 MR#: [id number] Acct: [id number] Name: PEDRO PABLO SIERRA Rep #:[id number] : 1950 74 From: Maya Talamantes MD PCP: Dr. Daija Morton MD Status:ADM I N Location: [place] [address] Objective Data Objective Data Vital Signs: Vital [...] 75.1 H, Lymph % (Auto) 14.2 L, Emanuel % (Auto) 8.5, Eos % (Auto) 1.2, [...] on keppra, PVD, and CDwho presented to [facility] ED on 12/17/2024 with dysarthria and [...] Date Recorded By Document 12/21/24 08:35 DS [id number] 12/21/24 11:09 DS 12/21/24 08:35 NIH Stroke [...] Cosigner Signature (if applicable): CC: ~ Signed [facility] Work Phone: 1([phone]) [phone] Progress note Author Lisha Talamantes [facility] Note Date/Time December 21, 2024 1:11p m [facility] Medical Records Department [address] [place] [address] Progress Note - Hospitalist 12/21/24 1243 MR#: [id number] Acct: [id number] Name: PEDRO PABLO SIERRA Rep #:[id number] : 1950 74 From: Lisha Talamantes DO PCP: Dr. Daija Morton MD Status:ADM I N [facility] Reason for Visit Reason for [...] 75.1 H, Lymph % (Auto) 14.2 L, Emanuel % (Auto) 8.5, Eos % (Auto) 1.2, [...] Full code Charges/Coding Visit Charges Inpatient E&M: 21044 Subs Hosp L2 NIHSS NIHSS Nursing Documentation NIHSS Nursing Documentation: NIHSS: Ischemic Stroke/TIA Start: 12/17/24 18:52 Text: For PCU Patients: NIH and Neuro Check every 4 Status: Active hours, PRN and with change in RN caregiver. Freq: Q12 Protocol: Activity Type Activity Date Activity User E-sign Co-sign Detail Recorded Client Recorded Date Recorded By Document 12/21/24 08:35 DS [id number] 12/21/24 11:09 DS 12/21/24 08:35 NIH Stroke [...] Cosigner Signature (if applicable): CC: ~ Signed [facility] Work Phone: 1([phone] 515-446807-04-2025 Progress note Author Lisha Talamantes [facility] Note Date/Time December 20, 2024 12:05 pm [facility] Medical Records Department [address] [place] [address] Progress Note - Hospitalist 12/20/24 0717 MR#: [id number] Acct: [id number] Name: PEDRO PABLO SIERRA Rep #:[id number] : 1950 74 From: Lisha Talamantes DO PCP: Dr. Daija Morton MD Status:ADM I N Location: [place] [address] Reason for Visit Reason for Visit: Difficulty [...] 79.1 H, Lymph % (Auto) 9.9 L, Emanuel % (Auto) 8.5, Eos % (Auto) 1.2, [...] in the right maxillary sinus. Reading [facility] Physical Exam Const alert, no apparent distress [...] Full code Charges/Coding Visit Charges Inpatient E&M: 35209 Subs Hosp L2 NIHSS NIHSS Nursing Documentation NIHSS Nursing Documentation: NIHSS: Ischemic Stroke/TIA Start: 12/17/24 18:52 Text: For PCU Patients: NIH and Neuro Check every 4 Status: Active hours, PRN and with change in RN caregiver. Freq: S6AUXDO Protocol: Activity Type Activity Date Activity User E-sign Co-sign Detail Recorded Client Recorded Date Recorded By Document 12/20/24 05:53 MB [id number] 12/20/24 05:55 MB 12/20/24 05:53 NIH Stroke [...] Cosigner Signature (if applicable): CC: ~ Signed [facility] Work Phone: 1(422) 723-800107-04-2025 Progress note Author René Reno [facility] Note Date/Time December 20, 2024 11:53 am [facility] Medical Records Department [address] [place] [address] Progress Note - Neurology 12/20/24 1107 MR#: [id number] Acct: [id number] Name: PEDRO PABLO SIERRA Rep #:[id number] : 1950 74 From: René Damon PCP: Dr. Daija Morton MD Status:ADM I N Location: [place] [address] Objective Data Objective Data Vital Signs: Vital [...] 79.1 H, Lymph % (Auto) 9.9 L, Emanuel % (Auto) 8.5, Eos % (Auto) 1.2, [...] awaiting PEG tube on Monday, failed with DEV MANAGER. No NGT. EEG Results Procedure Details EEG [...] is controlled. Would prefer a DOAC for long term AC. I would recommend re-evaluation of candiacy for AC despite the fall risk as the patient has an high risk of future embolic events ([id number] 10, HASBLED 4). His risk of a [...] goal <7, BP goal is 120/80 -recommend PT/OT/DEV MANAGER consult. Will likely need PEG. consider NGT for alterative access in the meantime #seizure -recommend routine EEG as his aphasia does seen to be out of proportion to his infarct burden. would want to ensure no NCSE -it appears he was switched from CBZ to keppra during this admission. Ok to continue keppra group home if tolerating without adverse effects or recurrent seizures. ] NIHSS NIHSS Nursing Documentation NIHSS Nursing Documentation: NIHSS: Ischemic Stroke/TIA Start: 12/17/24 18:52 Text: For PCU Patients: NIH and Neuro Check every 4 Status: Active hours, PRN and with change in RN caregiver. Freq: Q12 Protocol: Activity Type Activity Date Activity User E-sign Co-sign Detail Recorded Client Recorded Date Recorded By Document 12/20/24 09:41 [id number] 12/20/24 09:46 12/20/24 09:41 NIH Stroke Scale [...] Cosigner Signature (if applicable): cc: ~* Signed [facility] Work Phone: 1(508) 570-216307-03-2025 Progress note Author Lisha Talamantes [facility] Note Date/Time December 19, 2024 4:09p m [facility] Medical Records Department [address] [place] [address] Progress Note - Hospitalist 12/19/24 0810 MR#: [id number] Acct: [id number] Name: EPDRO PABLO SIERRA Rep #:[id number] : 1950 74 From: Lisha Talamantes DO PCP: Dr. Daija Morton MD Status:ADM I N Location: [place] [address] Reason for Visit Reason for Visit: Difficulty [...] 81.3 H, Lymph % (Auto) 9.0 L, Emanuel % (Auto) 6.6, Eos % (Auto) 1.9, [...] right maxillary sinus. Reading Location: [facility] Physical Exam Const alert, no apparent distress [...] Full code Charges/Coding Visit Charges Inpatient E&M: 53909 Subs Hosp L2 NIHSS NIHSS Nursing Documentation NIHSS Nursing Documentation: NIHSS: Ischemic Stroke/TIA Start: 12/17/24 18:52 Text: For PCU Patients: NIH and Neuro Check every 4 Status: Active hours, PRN and with change in RN caregiver. Freq: W3YGSWX Protocol: Activity Type Activity Date Activity User E-sign Co-sign Detail Recorded Client Recorded Date Recorded By Document 12/19/24 07:15 [id number] 12/19/24 07:43 12/19/24 07:15 NIH Stroke Scale [...] Cosigner Signature (if applicable): CC: ~ Signed [facility] Work Phone: 1(485) 818-717307-02-2025 Progress note Author Lisha Talamantes [facility] Note Date/Time December 18, 2024 2:59p m [facility] Medical Records Department [address] [place] [address] Progress Note - Hospitalist 12/18/24 1445 MR#: [id number] Acct: [id number] Name: PEDRO PABLO SIERRA Shannan Rep #:[id number] : 1950 74 From: Lisha Talamantes DO PCP: Dr. Daija Morton MD Status:ADM I NO Location: [place] [address] Reason for Visit Reason for Visit: Diagnoses [...] (Auto) 77.5 H, Lymph % (Auto) 12.1 L,Emanuel % (Auto) 7.8, Eos % (Auto) 1.1, [...] as noted. Findings were called to the [facility] emergency department on 12/17/2024 at 4:35 p.m. Reading Location: [id number] Head/Neck CTA 12/17/24 15:53 IMPRESSION: Right ICA stenosis of 75%. Left ICA stenosis of 50%. Additional atherosclerosis as above. Biapical pulmonary scarring and emphysema. Reading Location: [id number] Chest X-Ray 12/17/24 15:54 IMPRESSION: Hyperaerated lungs which can suggest COPD. Stable scarring. Reading Location: [id number] Echocardiogram 12/18/24 07:27 Interpretation Summary Technically difficult [...] Full code Charges/Coding Visit Charges Inpatient E&M: 24359 Subs Hosp L2 NIHSS NIHSS Nursing Documentation NIHSS Nursing Documentation: NIHSS: Ischemic Stroke/TIA Start: 12/17/24 18:52 Text: For PCU Patients: NIH and Neuro Check every 4 Status: Active hours, PRN and with change in RN caregiver. Freq: Q3HJWTE Protocol: Activity Type Activity Date Activity User E-sign Co-sign Detail Recorded Client Recorded Date Recorded By Document 12/18/24 13:40 [id number] 12/18/24 13:43 12/18/24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 Marguerite Roper RN [facility]03-17-2025 Consult note [facility] Medical Records Department [address] [place] [address] Counseling Note - Pharmacy 09/02/24 1507 MR#: [id number] Acct: [id number] Name: PEDRO PABLO SIERRA Rep #:[id number] : 1950 74 From: Shanell Hyatt PCP: Dr. Daija Morton MD Status:ADM I N Y Location: [address] Med Reconciliation Pharmacy Service has performed [...] Signature (if applicable): Date CC: ~ Signed [facility]03-17-2025 Discharge summary Author Brody Maynard [facility] Note Date/Time September 02, 2024 3:[address] [facility] Medical Records Department [address] [place] [address] Discharge Summary 09/02/24 1459 MR#: [id number] Acct: [id number] Name: PEDRO PABLO SIERRA Rep #:[id number] : 1950 74 From: Brody Damon PCP: Dr. Daija Morton MD Status:ADM I N Location: [id number] Providers Date of Admission: 08/27/24 Date of [...] diarrhea, generalized weakness after recent discharge from [facility]. Patient was found to have UTI, ESBL E. coli. He also has mild COPD exacerbation. # Generalized weakness/debility/failure to thrive -Patient recently had been at [facility] and was discharged 08/20/2024 buthas [...] and DC plan in place -08/30: Awaiting [facility] and APS determinations about payee so that patient can be placed at [facility], further dispo pending this -08/31: [...] in before D/C Order can be placed): Shelter Facility Charges/Coding Visit Charges Inpatient E&M: 65330 Disch Hosp >30min 09/02/24 1509 <Electronically signed by Brody Maynard MD> Cosigner Signature (if applicable): CC: Dr. Daija Morton MD; Dr. Brody Maynard MD~ Signed [facility] Work Phone: 1(575) 943-834003-17-2025 Consult note Author Shanell Hyatt [facility] Note Date/Time September 02, 2024 9:3 5pm [facility] Medical Records Department [address] [place] [address] Counseling Note - Pharmacy 09/02/24 1507 MR#: [id number] Acct: [id number] Name: PEDRO PABLO SIERRA Rep #:[id number] : 1950 74 From: Shanell Hyatt PCP: Dr. Daija Morton MD Status:ADM I N Y Location: [place] [address] Pharmacy [place] Med Reconciliation Pharmacy Service has performed discharge [...] Signature (if applicable): Date CC: ~ Signed [facility] Work Phone: 1(448) 856-908903-17-2025 Discharge summary Author Brody Maynard [facility] Note Date/Time September 02, 2024 2:5 8pm [facility] Medical Records Department [address] [place] [address] Transfer to [facility] MR#: [id number] Acct: [id number] Name: PEDRO PABLO SIERRA Rep #:[id number] : 1950 74 From: Brody Damon PCP: Dr. Daija Morton MD Status:ADM I N Certification of patient admission REQUIRED AT TIME OF ADMISSION. I CERTIFY THAT POST-HOSPITAL ECF SERVICES ARE REQUIRED TO BE GIVEN ON AN IN-PATIENT BASIS BECAUSE OF THE ABOVE NAMED PATIENT'S NEED FOR HALFWAY CARE ON A CONTINUING BASIS FOR THE CONDITION(S) FOR WHICH HE/SHE WAS RECEIVING IN-PATIENT HOSPITAL SERVICES PRIOR TO HIS/HER TRANSFER TO THE [facility]. 09/02/24 1458<Electronically signed by Brody Maynard [...] to thrive -Patient recently had been at [facility] and was discharged 08/20/2024 buthas [...] and DC plan in place -08/30: Awaiting [facility] and APS determinations about payee so that patient can be placed at [facility], further dispo pending this -08/31: [...] in before D/C Order can be placed): Shelter Facility 09/02/24 0751 <Electronically signed by Brody Maynard MD> Cosigner Signature (if applicable): CC: Dr. Daija Morton MD; Dr. Lisha Talamantes DO; Dr. Celia Toribio MD; Dr. Ashley MD ~ [facility] Work Phone: 1(400) 267-801603-17-2025 Progress note Author [facility] Note Date/Time September 02, 2024 2:2 8pm [facility] Medical Records Department [address] [place] [address] Progress Note - Infect Disease 09/02/24 1425 MR#: [id number] Acct: [id number] Name: PEDRO PABLO SIERRA Rep #:[id number] : 1950 74 From: Elton pierce MD PCP: Dr. Daija Morton MD Status:ADM I N Location: [place] [address] Physical Exam Narrative C/o some dysuria. No [...] Cosigner Signature (if applicable): CC: ~ Signed [facility] Work Phone: 1(742) 743-650403-17-2025 Discharge summary [facility] Medical Records Department [address] [place] [address] Discharge Summary 09/02/24 1459 MR#: [id number] Acct: [id number] Name: PEDRO PABLO SIERRA Rep #:[id number] : 1950 74 From: Brody Damon PCP: Dr. Daija Morton MD Status:ADM I N Location: [place] [address]-1 Providers Date of Admission: 08/27/24 Date of [...] diarrhea, generalized weakness after recent discharge from [facility]. Patient was found to have UTI, ESBL E. coli. He also has mild COPD exacerbation. # Generalized weakness/debility/failure to thrive -Patient recently had been at [facility] and was discharged 08/20/2024 buthas [...] and DC plan in place -08/30: Awaiting [facility] and APS determinations about payee so that patient can be placedat [facility], further dispo pending this -08/31: [...] in before D/C Order can be placed): Shelter Facility Charges/Coding Visit Charges Inpatient E&M: 78469 Disch Hosp >30min 09/02/24 1509 Cosigner Signature (if applicable): CC: Dr. Daija Morton MD; Dr. Brody Maynard MD~ Signed [facility]03-17-2025 [facility] Discharge summary [facility] Medical Records Department [address] [place] [address] Transfer to [facility] MR#: [id number] Acct: [id number] Name: PEDRO PABLO SIERRA Rep #:[id number] : 1950 74 From: Brody Damon PCP: Dr. Daija Morton MD Status:ADM I N Certification of patient admission REQUIRED AT TIME OF ADMISSION. I CERTIFY THAT POST-HOSPITAL [facility] SERVICES ARE REQUIRED TO BE GIVEN ON AN IN-PATIENT BASIS BECAUSE OF THE ABOVE NAMED PATIENT'S NEED FOR HALFWAY CARE ON A CONTINUING BASIS FOR THE CONDITION(S) FOR WHICH HE/SHE WAS RECEIVING IN-PATIENT HOSPITAL SERVICES PRIOR TO HIS/HER TRANSFER TO THE [facility]. 09/02/24 1458 Diet Diet Order/Speech Therapy: 08/25/24 19:21 Diet: Cardiac - Heart Healthy Food consistency:: Regular Liquid Consistency:: Regular/Thin DC O2, CPAP, BIPAP needs Home O2 Discharge instructions: No Problem/Diagnosis (1) Weakness: Status: Acute Code(s): R53.1 - Weakness (2) Acute diarrhea: Status: Acute Code(s): R19.7 - Diarrhea, unspecified Plan # Generalized weakness/debility/failure to thrive -Patient recently had been at [facility] and was discharged 08/20/2024 buthas [...] and DC plan in place -08/30: Awaiting [facility] and APS determinations about payee so that patient can be placedat [facility], further dispo pending this -08/31: [...] in before D/C Order can be placed): Shelter Facility 09/02/24 1332 Cosigner Signature (if applicable): CC: Dr. Daija Morton MD; Dr. Lisha Talamantes DO; Dr. Celia Toribio MD; Dr. Ashley MD ~ [facility]03-17-2025 Progress note [facility] Medical Records Department [address] [place] [address] Progress Note - Infect Disease 09/02/24 1425 MR#: [id number] Acct: [id number] Name: PEDRO PABLO SIERRA Rep #:[id number] : 1950 74 From: Elton pierce MD PCP: Dr. Daija Morton MD Status:ADM I N Location: [place] [address] Physical Exam Narrative C/o some dysuria. No [...] Cosigner Signature (if applicable): CC: ~ Signed [facility]03-16-2025 Progress note Author Celia Toribio [facility] Note Date/Time September 01, 2024 11: 27am [facility] Medical Records Department [address] [place] [address] Progress Note - Hospitalist 09/01/24 0758 MR#: [id number] Acct: [id number] Name: PEDRO PABLO SIERRA Rep #:[id number] : 1950 74 From: Celia Toribio MD PCP: Dr. Daija Morton MD Status:ADM I N Location: [place] [address] Reason for Visit Reason for Visit: Diagnoses [...] (Auto) 70.9 H, Lymph % (Auto) 20.9, Emanuel % (Auto) 6.2, Eos % (Auto) 0.4, [...] to thrive -Patient recently had been at [facility] and was discharged 08/20/2024 buthas [...] and DC plan in place -08/30: Awaiting [facility] and APS determinations about payee so that patient can be placed at [facility], further dispo pending this -08/31: [...] Toribio MD Charges/Coding Visit Charges Inpatient E&M: 83520 Subs Hosp L1 09/01/24 6718 <Electronically signed by Celia Toribio MD> Cosigner Signature (if applicable): CC: ~ Signed [facility] Work Phone: 1(197) 308-197303-16-2025 Progress note [facility] Medical Records Department [address] [place] [address] Progress Note - Hospitalist 09/01/24 0758 MR#: [id number] Acct: [id number] Name: PEDRO PABLO SIERRA Rep #:[id number] : 1950 74 From: Celia Toribio MD PCP: Dr. Daija Morton MD Status:ADM I N Location: [place] [address] Reason for Visit Reason for Visit: Diagnoses [...] %(Auto) 70.9 H, Lymph % (Auto) 20.9, Emanuel % (Auto) 6.2, Eos % (Auto) 0.4, [...] to thrive -Patient recently had been at [facility] and was discharged 08/20/2024 buthas [...] and DC plan in place -08/30: [facility] and [facility] determinations about payee so that patient can be placedat [facility], further dispo pending this -08/31: [...] Toribio MD Charges/Coding Visit Charges Inpatient E&M: 71002 Subs Hosp L1 09/01/24 1127 Cosigner Signature (if applicable): CC: ~ Signed [facility]03-15-2025 Progress note Author Celia Toribio [facility] Note Date/Time August 31, 2024 12: 30pm [facility] Medical Records Department [address] [place] [address] Progress Note - Hospitalist 08/31/24 0748 MR#: [id number] Acct: [id number] Name: ARIEL SIERRAJAYY Pierce Rep #:[id number] : 1950 74 From: Celia Toribio MD PCP: Dr. Daija Morton MD Status:ADM I N Location: [facility] [id number] Reason for Visit Reason for Visit: Diagnoses [...] to thrive -Patient recently had been at [facility] and was discharged 08/20/2024 buthas [...] and DC plan in place -08/30: Awaiting [facility] and APS determinations about payee so that patient can be placed at [facility], further dispo pending this -08/31: [...] documentation, 36minutes Charges/Coding Visit Charges Inpatient E&M: [address] Subs Hosp L2 08/31/24 1230 <Electronically signed by Celia Toribio MD> Cosigner Signature (if applicable): CC: ~ Signed [facility] Work Phone: 1([phone]) 189-739303-15-2025 Progress note [facility] Medical Records Department [address] [place] [address] Progress Note - Hospitalist 08/31/24 0748 MR#: [id number] Acct: [id number] Name: PEDRO PABLO SIERRA Rep #:[id number] : 1950 74 From: Celia Toribio MD PCP: Dr. Daija Morton MD Status:ADM I N Location: MS3 VQ931-3 Reason for Visit Reason for Visit: Diagnoses [...] to thrive -Patient recently had been at [facility] and was discharged 08/20/2024 buthas [...] and DC plan in place -08/30: Awaiting [facility] and [facility] determinations about payee so that patient can be placedat [facility], further dispo pending this -08/31: [...] documentation, 36minutes Charges/Coding Visit Charges Inpatient E&M: 50159 Subs Hosp L2 08/31/24 1230 Cosigner Signature (if applicable): CC: ~ Signed [facility]03-14-2025 Consult note Author Elton Moore [facility] Note Date/Time August 30, 2024 1:[address] [facility] Medical Records Department [address] [place] [address] Consultation - Infectious Dx 08/30/24 1343 MR#: [id number] Acct: [id number] Name: PEDRO PABLO SIERRA Rep #:[id number] : 1950 74 From: Elton pierce MD PCP: Dr. Daija Morton MD Status:ADM I N Location: [place] [address] Assessment & Plan Assessment/Plan (1) Weakness: (2) [...] (Auto) 64.8, Lymph % (Auto) 17.8 L, Emanuel % (Auto) 7.6, Eos % (Auto) 7.8 [...] applicable): CC: Dr. Daija Morton MD~ Signed [facility] Work Phone: [phone]) 819-228303-14-2025 Consult note [facility] Medical Records Department [address] [place] [address] Consultation - Infectious Dx 08/30/24 1343 MR#: [id number] Acct: [id number] Name: PEDRO PABLO SIERRA Shannan Rep #:[id number] : 1950 74 From: Elton pierce MD PCP: Dr. Daija Morton MD Status:ADM I N Location: [place] [address] Assessment & Plan Assessment/Plan (1) Weakness: (2) [...] %(Auto) 64.8, Lymph % (Auto) 17.8 L, Emanuel % (Auto) 7.6, Eos % (Auto) 7.8 [...] applicable): CC: Dr. Daija Morton MD~ Signed [facility]03-14-2025 Progress note Author Celia Toribio [facility] Note Date/Time August 30, 2024 11: 11am [facility] Medical Records Department [address] [place] [address] Progress Note - Hospitalist 08/30/24 0709 MR#: [id number] Acct: [id number] Name: PEDRO PABLO SIERRA Rep #:[id number] : 1950 74 From: Celia Toribio MD PCP: Dr. Daija Morton MD Status:ADM I N Location: [place] [address] Reason for Visit Reason for Visit: Diagnoses [...] (Auto) 64.8, Lymph % (Auto) 17.8 L, Emanuel % (Auto) 7.6, Eos % (Auto) 7.8 [...] to thrive -Patient recently had been at [facility] and was discharged 08/20/2024 buthas [...] and DC plan in place -08/30: Awaiting [facility] and [facility] determinations about payee so that patient can be placed at [facility], further dispo pending this # [...] documentation, 36minutes Charges/Coding Visit Charges Inpatient E&M: 48447 Subs Hosp L2 08/30/24 1111 <Electronically signed by Celia Toribio MD> Cosigner Signature (if applicable): CC: ~ Signed [facility] Work Phone: [phone] 377-820503-14-2025 Progress note [facility] Medical Records Department [address] [place] [address] Progress Note - Hospitalist 08/30/24 0709 MR#: [id number] Acct: [id number] Name: PEDRO PABLO SIERRA Rep #:[id number] : 1950 74 From: Celia Toribio MD PCP: Dr. Daija Morton MD Status:ADM I N Location: [place] [address] Reason for Visit Reason for Visit: Diagnoses [...] %(Auto) 64.8, Lymph % (Auto) 17.8 L, Emanuel % (Auto) 7.6, Eos % (Auto) 7.8 [...] to thrive -Patient recently had been at [facility] and was discharged 08/20/2024 buthas [...] and DC plan in place -08/30: Awaiting [facility] and [facility] determinations about payee so that patient can be placedat [facility], further dispo pending this # [...] documentation, 36minutes Charges/Coding Visit Charges Inpatient E&M: 39416 Subs Hosp L2 08/30/24 1111 Cosigner Signature (if applicable): CC: ~ Signed [facility]03-13-2025 Progress note Author Celia Toribio [facility] Note Date/Time August 29, 2024 5:[address] [facility] Medical Records Department [address] [place] [address] Progress Note - Hospitalist 08/29/24 0805 MR#: [id number] Acct: [id number] Name: PEDRO PABLO SIERRA Rep #:[id number] : 1950 74 From: Celia Toribio MD PCP: Dr. Daija Morton MD Status:ADM I N Location: [facility] VB038-3 Reason for Visit Reason for Visit: Diagnoses [...] % (Auto) 59.8, Lymph % (Auto) 22.3, Emanuel % (Auto) 8.0, Eos % (Auto) 8.2 [...] to thrive -Patient recently had been at [facility] and was discharged 08/20/2024 buthas been having diarrhea since that time -May be due to diarrhea but cannot say definitively, checking UA -PT/OT -08/27: UA ordered, yet to be collected, will follow-up, continue to work with physical therapy, case management social work following -08/28: Patient now agreeable to placement, placement avenues been pursued -08/29: Patient pending acceptance and pre-CERT for [facility], patient stable and will be cleared for [...] documentation, 35minutes Charges/Coding Visit Charges Inpatient E&M: 71661 Subs Hosp L2 08/29/24 1725 <Electronically signed by Celia Toribio MD> Cosigner Signature (if applicable): CC: ~ Signed [facility] Work Phone: 1(796) 311-128603-13-2025 Progress note [facility] Medical Records Department [address] [place] [address] Progress Note - Hospitalist 08/29/24 08 MR#: [id number] Acct: [id number] Name: PEDRO PABLO SIERRA Rep #:[id number] : 1950 74 From: Celia Toribio MD PCP: Dr. Daija Morton MD Status:ADM I N Location: MS3 WB208-1 Reason for Visit Reason for Visit: Diagnoses [...] % (Auto) 59.8, Lymph % (Auto) 22.3, Emanuel % (Auto) 8.0, Eos % (Auto) 8.2 [...] to thrive -Patient recently had been at [facility] and was discharged 08/20/2024 buthas [...] documentation, 35minutes Charges/Coding Visit Charges Inpatient E&M: 35289 Subs Hosp L2 08/29/24 8558 Cosigner Signature (if applicable): CC: ~ Signed [facility]03-12-2025 Progress note Author Celia Toribio [facility] Note Date/Time August 28, 2024 3:[address] [facility] Medical Records Department [address] [place] [address] Progress Note - Hospitalist 08/28/24 1458 MR#: [id number] Acct: [id number] Name: PEDRO PABLO SIERRA Rep #:[id number] : 1950 74 From: Celia Toribio MD PCP: Dr. Daija Morton MD Status:ADM I N Location: [place] [address] Reason for Visit Reason for Visit: Diagnoses [...] % (Auto) 55.6, Lymph % (Auto) 23.4, Emanuel % (Auto) 11.3 H, Eos % (Auto) [...] to thrive -Patient recently had been at [facility] and was discharged 08/20/2024 buthas [...] documentation, 35minutes Charges/Coding Visit Charges Inpatient E&M: 99795 Subs Hosp L2 08/28/24 4792 <Electronically signed by Celia Toribio MD> Cosigner Signature (if applicable): CC: ~ Signed [facility] Work Phone: 1(334) 314-227903-12-2025 Progress note [facility] Medical Records Department [address] [place] [address] Progress Note - Hospitalist 08/28/24 3394 MR#: [id number] Acct: [id number] Name: PEDRO PABLO SIERRA Rep #:[id number] : 1950 74 From: Celia Toribio MD PCP: Dr. Daija Morton MD Status:ADM I N Location: [place]3 JZ176-9 Reason for Visit Reason for Visit: Diagnoses [...] % (Auto) 55.6, Lymph % (Auto) 23.4, Emanuel % (Auto) 11.3 H, Eos % (Auto) [...] to thrive -Patient recently had been at [facility] and was discharged 08/20/2024 buthas [...] documentation, 35minutes Charges/Coding Visit Charges Inpatient E&M: 16661 Subs Hosp L2 08/28/24 1504 Cosigner Signature (if applicable): CC: ~ Signed [facility]03-11-2025 Evaluation note* Diagnosis Onset Date Resolution Status Admit Date Acute diarrhea acute August 6:22pm Debility acute August 27 6:22pm Weakness acute August 27 6:22pm 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 August 172024 6:22pm [facility] Work Phone: 1(644) 942-539003-11-2025 Evaluation note* Diagnosis Onset Date Resolution Status Admit Date Acute diarrhea resolved August 6:22pm Debility inactive August 27 6:22pm Failure to thrive inactive August 172024 6:22pm Weakness inactive August 27 6:22pm [facility] Work Phone: 1([phone]) 817-539303-11-2025 Evaluation note* Diagnosis Onset Date Resolution Status Admit Date Acute diarrhea resolved August 6:22pm Debility inactive August 27 6:22pm Failure to thrive inactive August 172024 6:22pm Weakness inactive August 27 6:22pm COPD exacerbation chronic December 132024 8:07pm [facility] Work Phone: 1(199) 761-740903-11-2025 Evaluation note* Diagnosis Onset Date Resolution Status Admit Date Acute diarrhea resolved August 6:22pm Debility inactive August 27 6:22pm Failure to thrive inactive August 172024 6:22pm Weakness inactive August 27 6:22pm Acute on chronic respiratory failure with hypoxia and hypercapnia chronic December 13, 2024 8:07pm COPD exacerbation chronic December 132024 8:07pm [facility] Work Phone: 1([phone]) 719-882103-11-2025 Evaluation note* Diagnosis Onset Date Resolution Status [...] December 5:51pm Hypertension chronic December 17 5:51pm [facility] Work Phone: [phone] 381-211503-11-2025 Evaluation note* Diagnosis Onset Date Resolution Status [...] 2 :58pm COPD exacerbation resolved December 2:58pm [facility] Work Phone: 1(771) 774-608003-11-2025 Progress note Author Celia Toribio [facility] Note Date/Time August 27, 2024 4:1 3pm [facility] Medical Records Department [address] [place] [address] Progress Note - Hospitalist 08/27/241612 MR#: [id number] Acct: [id number] Name: PEDRO PABLO SIERRA Shannan Rep #:[id number] : 1950 74 From: Celia Toribio MD PCP: Dr. Daija Morton MD Status:ADM I NO Location: [place] [address] Hospitalist Note Repeat hemoglobin actually improved, suspect that this was then margin of bladder, will DC FOBT 08/27/241612 <Electronically signed by Celia Toribio MD> Cosigner Signature (if applicable): CC: ~ Signed [facility] Work Phone: 1([phone]) 820-525103-11-2025 Progress note [facility] Medical Records Department [address] [place] [address] Progress Note - Hospitalist 08/27/241612 MR#: [id number] Acct: [id number] Name: PEDRO PABLO SIERRA R Rep #:[id number] : 1950 74 From: Celia Toribio MD PCP: Dr. Daija Morton MD Status:ADM I NO Location: [place]3 TR763-1 Hospitalist Note Repeat hemoglobin actually improved, suspect that this was then margin of bladder, will DC FOBT 08/27/24 1613 Cosigner Signature (if applicable): CC: ~ Signed [facility]03-11-2025 Progress note Author [facility] Note Date/Time August 27, 2024 1:3 2pm [facility] Medical Records Department [address] [place] [address] Progress Note - Hospitalist 08/27/24 1332 MR#: [id number] Acct: [id number] Name: PEDRO PABLO SIERRA R Rep #:[id number] : 1950 74 From: Celia Toribio MD PCP: Dr. Daija Morton MD Status:ADM I NO Location: [place] [address] Hospitalist Note UA abnormal and is suggestive of UTI and given this and patient suprapubic tenderness we will start patient on Rocephin and await urine culture 08/27/24 1332 <Electronically signed by Celia Toribio MD> Cosigner Signature (if applicable): CC: ~ Signed [facility] Work Phone: 1(275) 640-538503-11-2025 Progress note Author [facility] Note Date/Time August 27, 2024 12: 52pm [facility] Medical Records Department [address] [place] [address] Progress Note - Hospitalist 08/27/24 0831 MR#: [id number] Acct: [id number] Name: PEDRO PABLO SIERRA R Rep #:[id number] : 1950 74 From: Celia Toribio MD PCP: Dr. Daija Morton MD Status:ADM I NO Location: [place]3 DH485-5 Reason for Visit Reason for Visit: Diagnoses [...] Neut % (Auto) 56.2, Lymph % (Auto) 23.0,Emanuel % (Auto) 13.1 H, Eos % (Auto) [...] to thrive -Patient recently had been at [facility] and was discharged 08/20/2024 buthas [...] documentation, 36minutes Charges/Coding Visit Charges Inpatient E&M: 89020 Subs Hosp L2 08/27/24 1252 <Electronically signed by Celia Toribio MD> Cosigner Signature (if applicable): CC: ~ Signed [facility] Work Phone: 1(262) 414-783403-11-2025 Progress note [facility] Medical Records Department [address] [place] [address] Progress Note - Hospitalist 08/27/24 1332 MR#: [id number] Acct: [id number] Name: PEDRO PABLO SIERRA Rep #:[id number] : 1950 74 From: Celia Toribio MD PCP: Dr. Daija Morton MD Status:ADM I NO Location: MS3 XE060-9 Hospitalist Note UA abnormal and is suggestive of UTI and given this and patient suprapubic tenderness we will startpatient on Rocephin and await urine culture 08/27/24 1332 Cosigner Signature (if applicable): CC: ~ Signed [facility]03-11-2025 Progress note [facility] Medical Records Department [address] [place] [address] Progress Note - Hospitalist 08/27/24 0831 MR#: [id number] Acct: [id number] Name: PEDRO PABLO SIERRA Rep #:[id number] : 1950 74 From: Celia Troibio MD PCP: Dr. Daija Morton MD Status:ADM I NO Location: MS3 YX289-7 Reason for Visit Reason for Visit: Diagnoses [...] Neut % (Auto) 56.2, Lymph % (Auto) 23.0,Emanuel % (Auto) 13.1 H, Eos % (Auto) [...] to thrive -Patient recently had been at [facility] and was discharged 08/20/2024 buthas [...] documentation, 36minutes Charges/Coding Visit Charges Inpatient E&M: 49300 Subs Hosp L2 08/27/24 1252 Cosigner Signature (if applicable): CC: ~ Signed [facility]03-10-2025 Progress note Author Celia Toribio [facility] Note Date/Time August 26, 2024 4:5 4pm [facility] Medical Records Department [address] [place] [address] Progress Note - Hospitalist 08/26/24906 MR#: [id number] Acct: [id number] Name: PEDRO PABLO SIERRA Rep #:[id number] : 1950 74 From: Celia Toribio MD PCP: Dr. Daija Morton MD Status:ADM I NO Location: [place] [address] Reason for Visit Reason for Visit: Diagnoses [...] 78.4 H, Lymph % (Auto) 10.3 L, Emanuel % (Auto) 9.9, Eos % (Auto) 0.3, [...] % (Auto) 60.3, Lymph % (Auto) 19.8, Emanuel% (Auto) 15.2 H, Eos % (Auto) 3.4, [...] IMPRESSION: No acute airspace abnormality. Reading Location: [facility] Physical Exam Narrative General: Alert, no apparent [...] to thrive -Patient recently had been at [facility] and was discharged 08/20/2024 buthas [...] Toribio MD Charges/Coding Visit Charges Inpatient E&M: 75915 Subs Hosp L2 08/26/24 6154 <Electronically signed by Celia Toribio MD> Cosigner Signature (if applicable): CC: ~ Signed [facility] Work Phone: 1(122) 210-292203-10-2025 Progress note [facility] Medical Records Department [address] [place] [address] Progress Note - Hospitalist 08/26/24906 MR#: [id number] Acct: [id number] Name: PEDRO PABLO SIERRA Rep #:[id number] : 1950 74 From: Celia Toribio MD PCP: Dr. Daija Morton MD Status:ADM I NO Location: MS3 AG681-7 Reason for Visit Reason for Visit: Diagnoses [...] 78.4 H, Lymph % (Auto) 10.3 L, Emanuel % (Auto) 9.9, Eos % (Auto) 0.3,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 11/09/2023 11:17 AM EDT [facility] called asking if provider or MACHINE PRINTER [employer]SE would be willing to follow for on going home care orders (Patient being discharged from [facility]) Please advise documented in this encounterKettering [facility] Hospital05-23-2024 Telephone encounter Note * Telephone Encounter - Anjel Braga APRN.CNP - 11/09/2023 12:52 PM EDT Provider agrees to follow at this time. Anjel Braga APRN.CNP [facility]05-23-2024 Telephone encounter Note* Telephone Encounter - Jacquie Branes - 11/09/2023 11:17 AM EDT [facility] called asking if provider or MACH[employer] PRINTER [employer] would be willing to follow for on going home care orders (Patient being discharged from [facility]) Please advise [facility] Work Phone: 1([phone] Telephone encounter Note* Telephone Encounter - Harriett Albert APRN.CNS - 10/19/2023 4:49 PM EDT Noted [facility]05-02-2024 Miscellaneous Notes* Telephone Encounter - Harriett Albert APRN.CNS - 10/19/2023 4:49 PM EDT Noted * Telephone Encounter - Nani Webb LPN - 10/19/2023 4:17 PM EDT FYI: Lit, respiratory care program director with [facility] calling to let you know pt is now approved for MyCare Waiver. Pt will be receiving MyCare [employer] Waiver. Pt is still in longterm [facility]. Nani Webb LPN documented in this encounterKettering [facility] Hospital05-02-2024 Telephone encounter Note * Telephone Encounter - Nani Webb LPN - 10/19/2023 4:17 PM EDT FYI: Lit respiratory care program director with [facility] calling to let you know pt is now approved for MyCare Waiver. Pt will be receiving MyCare [employer] Waiver. Pt is still in longterm [facility]. Nani Webb LPN [facility]03-04-2024 History of Present illness Narrative* [...] 21, 2023 10:47 AM documented in this encounterKettering [facility] Hospital02-19-2024 Miscellaneous Notes* Telephone Encounter - [...] Please advise. Emilie Flowers documented in this encounterKettering [facility] Hospital02-14-2024 Discharge summary Author Ryan Guerin [facility] August 02, 2023 4:20pm Note Date/Time August 02, 2023 4:00pm [facility] System Medical Records Department [address] [place] [id number] Transfer to [facility] MR#: [id number] Acct: [id number] Name: PEDRO PABLO SIERRA Rep #:[id number] : 1950 73 From: Ryan Guerin DO PCP: Dr. Daija Morton MD Status:ADM I N Certification of patient admission REQUIRED AT TIME OF ADMISSION. I CERTIFY THAT POST-HOSPITAL ECF SERVICES ARE REQUIRED TO BE GIVEN ON AN IN-PATIENT BASIS BECAUSE OF THE ABOVE NAMED PATIENT'S NEED FOR HALFWAY CARE ON A CONTINUING BASIS FOR THE CONDITION(S) FOR WHICH HE/SHE WAS RECEIVING IN-PATIENT HOSPITAL SERVICES PRIOR TO HIS/[facility]. 08/02/23 1620<Electronically signed by Ryan Guerin [...] Cardiac / Consistent CHO - consistency per DEV MANAGER. Monitor need for po supplement pending po [...] in before D/C Order can be placed): Shelter Facility 08/02/23 1620 <Electronically signed by Ryan Guerin DO> Cosigner Signature (if applicable): CC: Dr. Daija Morton MD; Dr. Brody Maynard MD ~ [facility] Work Phone: 1(765) 466-500002-13-2024 Progress note Author Ryan [facility] August 01, 2023 3:34pm Note Date/Time August 01, 2023 3:34pm [facility] Medical Records Department [address] [place] [address] Progress Note - Hospitalist 08/01/23 1531 MR#: [id number] Acct: [id number] Name: PEDRO PABLO SIERRA Rep #:[id number] : 1950 73 From: Ryan Guerin DO [...] will need precertification to return to his custodial facility. Objective Data Objective Data Vital Signs: [...] 25 minutes Charges/Coding Visit Charges Inpatient E&M: 08654 Subs Hosp L1 08/01/23 7809 <Electronically signed by Ryan Guerin DO> Cosigner Signature (if applicable): CC: ~ Signed [facility] Work Phone: 1(689) 766-131402-12-2024 Progress note Author Ryan Guerin [facility] July 31, 2023 5:02pm Note Date/Time July 31, 2023 4:57pm [facility] Medical Records Department [address] [facility] [place] [address] Progress Note - Hospitalist 07/31/23 4551 MR#: [id number] Acct: [id number] Name: PEDRO PABLO SIERRA Rep #:[id number] : 1950 73 From: Ryna Guerin DO PCP: Dr. Daija Morton MD [...] 76.5 H, Lymph % (Auto) 10.9 L, Emanuel % (Auto) 10.7 H, Eos % (Auto) [...] Clarity Clear, Urine pH 7.0, Ur Specific Trion 1.010, Urine Protein 30 H, Urine Glucose [...] 85.0 H, Lymph % (Auto) 7.1 L, Emanuel % (Auto) 7.1, Eos % (Auto) 0.0, [...] 35 minutes Charges/Coding Visit Charges Inpatient E&M: 04896 Subs Hosp L2 07/31/23 1702 <Electronically signed by Ryan Guerin DO> Cosigner Signature (if applicable): CC: ~ Signed [facility] Work Phone: 1(469) 837-789502-12-2024 History and physical note Author Brody Maynard [facility] July 31, 2023 1:01am Note Date/Time July 30, 2023 11:50pm [facility] Medical Records Department [address] [place] [address] H&P Exam - Hospitalist 07/30/23 0247 MR#: [id number] Acct: [id number] Name: PEDRO PABLO SIERRA Rep #:[id number] : 1950 73 From: Brody Damon PCP: [...] 3 to 5 L of oxygen from [facility] came to ED for shortness of breath along with wheezing and cough. intermediate, patient was febrile. Patient was found tachypneic [...] 76.5 H, Lymph % (Auto) 10.9 L, Emanuel % (Auto) 10.7 H, Eos % (Auto) [...] Clarity Clear, Urine pH 7.0, Ur Specific Trion 1.010, Urine Protein 30 H, Urine Glucose [...] side. 5. Moderate to severe chronic malnutrition: Cash Surrender Calculator consult. Nutritional supplement. 6. History of paroxysmal [...] 76.5 H, Lymph % (Auto) 10.9 L, Emanuel % (Auto) 10.7 H, Eos % (Auto) [...] Clarity Clear, Urine pH 7.0, Ur Specific Trion 1.010, Urine Protein 30 H, Urine Glucose [...] EST , Charges/Coding Visit Charges Inpatient E&M: 34007 Init Hosp L3 07/31/23 0101 <Electronically signed by Brody Maynard MD> Cosigner Signature (if applicable): CC: Dr. Daija Morton MD; Dr. Brody Maynard MD~ Signed [facility] Work Phone: 1(234) 699-768702-12-2024 Discharge summary Author Huber Alvarado [facility] July 31, 2023 12:08am Note Date/Time July 30, 2023 8:57pm [facility] System Medical Records Department [address] [place] [address] Emergency Department Summary 07/30/23 MR#: [id number] Acct: [id number] Name: PEDRO PABLO SIERRA Rep #:[id number] : 1950 73 From: Андрей CORTEZ PCP: [...] here on 24 July, discharged to a longterm. Per the longterm, the patient was more short of breath, [...] Cannula Oxygen Flow Rate (L/min) 3 3 [facility] <DIEGO Hopper - Last Filed: 07/30/23 22:27> [facility] Lab Data Labs: Laboratory Results - last 24 hr 07/30/23 07/30/23 20:51 21:55 WBC 5.5 RBC 4.07 L Hgb 13.3 Hct 40.4 MCV 99.3 H MCH 32.7 H MCHC 32.9 RDW Std Deviation 48.3 H RDW Coeff of Aly 13.2 Plt Count 262 MPV 9.4 Immature Gran % (Auto) 0.500 Neut % (Auto) 76.5 H Lymph % (Auto) 10.9 L Emanuel % (Auto) 10.7 H Eos % (Auto) [...] Clarity Clear Urine pH 7.0 Ur Specific Trion 1.010 Urine Protein 30 H Urine Glucose [...] is moving all extremities. Currently at the longterm after sustaining a pubic rami fracture. Differential [...] Alvarado MD - Last Filed: 07/31/23 00:08> [facility] Narrative Medical decision making narrative: I have personally performed a face to face assessment of the patient and have reviewed the ANDREW Note. I performed a substantive portion of the visit including all aspects of the following. My echevarria findings include: History: This patient was sent in by longterm for increased blood pressure and increased dyspnea [...] think this would be tolerated at the longterm. He is tachypneic but not tachycardic. He [...] 76.5 H Lymph % (Auto) 10.9 L Emanuel % (Auto) 10.7 H Eos % (Auto) [...] Clarity Clear Urine pH 7.0 Ur Specific Trion 1.010 Urine Protein 30 H Urine Glucose [...] your Primary Care Provider. Call [facility] ([phone]) or report to the closest Emergency Room. Call 911 if necessary. 07/30/232226 <Electronically signed by Андрей CORTEZ> Cosigner Signature (if applicable): 07/31/23 0008 <Electronically signed by Huber Alvarado MD> CC: Dr. Daija Morton MD ~ Signed [facility] Work Phone: 1(770) 111-959502-11-2024 Discharge summary Author Huber Alvarado [facility] July 31, 2023 12:08am Note Date/Time July 30, 2023 8:57pm [facility] Medical Records Department [address] [place] [address] Emergency Department Summary 07/30/23 MR#: [id number] Acct: [id number] Name: PEDRO PABLO SIERRA Rep #:[id number] : 1950 73 From: Андрей CORTEZ PCP: [...] here on 24 July, discharged to a longterm. Per the longterm, the patient was more short of breath, [...] 76.5 H Lymph % (Auto) 10.9 L Emanuel % (Auto) 10.7 H Eos % (Auto) [...] Clarity Clear Urine pH 7.0 Ur Specific Trion 1.010 Urine Protein 30 H Urine Glucose [...] is moving all extremities. Currently at the longterm after sustaining a pubic rami fracture. Differential [...] Alvarado MD - Last Filed: 07/31/23 00:08> [facility] Narrative Medical decision making narrative: I have personally performed a face to face assessment of the patient and have reviewed the ANDREW Note. I performed a substantive portion of the visit including all aspects of the following. My echevarria findings include: History: This patient was sent in by longterm for increased blood pressure and increased dyspnea [...] think this would be tolerated at the longterm. He is tachypneic but not tachycardic. He [...] 76.5 H Lymph % (Auto) 10.9 L Emanuel % (Auto) 10.7 H Eos % (Auto) [...] Clarity Clear Urine pH 7.0 Ur Specific Trion 1.010 Urine Protein 30 H Urine Glucose [...] of acute cardiopulmonary disease. Electronically Signed: Mario Carmer DO at 21:10 EST , Discharge Plan Dx/Rx/DC Orders Clinical Impression: Acute dyspnea, Hypertension, Acute metabolic encephalopathy, Influenza A, COPD with acute exacerbation Disposition Disposition: Acute Care Hospital [facility] What to do if you have Problems For any increased pain, shortness of breath, bleeding, nausea or vomiting, chestpain, or any unexpected problems, contact your Primary Care Provider. Call [facility] ([phone]) or report to the closest Emergency Room. Call 911 if necessary. 07/30/232226 <Electronically signed by Андрей CORTEZ> Cosigner Signature (if applicable): 07/31/23 000 <Electronically signed by Huber Alvarado MD> CC: Dr. Daija Morton MD ~ Signed [facility] Work Phone: [phone]) 812-495502-01-2024 Miscellaneous Notes* Telephone Encounter - Saundra George [...] Message left on voicemail of Sondra Alejo [phone] to request Pedro Pablo contact the office for further triage. Saundra George RN documented in [facility] encounterK[facility]-2024 Note. MICRO - Microbiology PROCEDURE: Urine Culture [*1] SOURCE: Urine, Clean Catch BODY SITE: COLLECTED DATE/TIME: 07/10/2023 12:00 EST RECEIVED DATE/TIME: 07/10/2023 16:50 EST START DATE/TIME: 07/10/2023 16:50 EST FREE TEXT SOURCE: FINAL REPORTS Final Report [] Verified Date/Time/Personnel: 07/11/2023 14:00 EST 10,000 - 50,000 cfu/ml Mixed growth consistent with normal urogenital kishore. Performing Locations *1: This test was performed at: [facility], [address] [place] [address], [address]- , [facility] ([place])05-30-2023 Miscellaneous Notes* Telephone Encounter - Kelly Zelaya [...] you. Kelly Zelaya RN. documented in this encounterK[facility]12-12-2023 Miscellaneous Notes* Telephone Encounter - Isabella Hdz LPN - 05/30/2023 2:39 PM EST Pharmacy calling requesting refills. Advises that pt just got discharged from longterm and theywould like to deliver these meds tomorrow if possible. Last refill Flomax and Proscar 02/28/23 Qty: 30 with 1 refill Last refill lidocaine patches 09/30/22 Qty: 15 with 0 refills JEANNINE 08/27/22 NOV none scheduled Isabella Hdz LPN documented in this encounterK[facility]12-04-2023 Miscellaneous Notes* Telephone Encounter - Nani Webb LPN - 05/22/2023 10:17 AM EST [facility] called in and message below given. Stella's PH>[phone]. Nani Webb LPN * Telephone Encounter - Sammi Cleaning LPN - 05/19/2023 7:10 PM EST Message left on secure voicemail. Sammi Cleaning LPN * Telephone Encounter - Keara Shin MD - 05/19/2023 6:45 PM EST Okay verbal order * Telephone Encounter - Gabino Delgado RN - 05/19/2023 1:33 PM EST Kristina Roe [facility]- reports patient will be discharged today with orders for SN & PT. would like to see patient this weekend, and no later than Monday. Requesting verbal order to follow for [facility]. Please phone Etta with verbal: [phone] documented in this encounterK[facility] Hospital10-17-2023 Discharge summary Author Frankie Galindo [facility] April 04, 2023 10:02am Note Date/Time April 04, 2023 9 :21am [facility] Medical Records Department [address] [place] [address] Transfer to [facility] MR#: [id number] Acct: [id number] Name: PEDRO PABLO SIERRA Rep #:[id number] : 1950 72 From: Frankie Galindo MD PCP: Dr. Daija Morton MD Status:ADM I N Certification of patient admission REQUIRED AT TIME OF ADMISSION. I CERTIFY THAT POST-HOSPITAL ECF SERVICES ARE REQUIRED TO BE GIVEN ON AN IN-PATIENT BASIS BECAUSE OF THE ABOVE NAMED PATIENT'S NEED FOR HALFWAY CARE ON A CONTINUING BASIS FOR THE [...] tamsulosin and finasteride 10. DVT prophylaxis ? PR Lovenox Time spent in the patient's overall [...] cbc while on iv abx. Fax to [phone] sennosides-docusate sodium [Stool Softener-Stimulant Laxat] 8.6-50 mg [...] in before D/C Order can be placed): Shelter Facility (1) UTI (urinary tract infection) Qualifiers: Urinary tract infection type: acute cystitis Hematuria presence: without hematuria Qualified Code(s): N30.00 - Acute cystitis without hematuria 04/04/23 1002 <Electronically signed by Frankie Galindo MD> Cosigner Signature (if applicable): CC: Dr. Daija Morton MD; Dr. Fran Cartwright MD; Dr. Celia Toribio MD; Dr. Elton Moore MD ~ [facility] Work Phone: 1(855) 669-120410-17-2023 Progress note Author Frankie Galindo [facility] April 04, 2023 9:21am Note Date/Time April 04, 2023 7 :31am [facility] Medical Records Department [address] [place] [address] Progress Note - Hospitalist 04/04/2331 MR#: [id number] Acct: [id number] Name: PEDRO PABLO SIERRA Rep #:[id number] : 1950 72 From: Frankie Galindo MD PCP: Dr. Daija Morton MD Status:ADM I N Location: MS3 UD376-7 Reason for Visit Reason for Visit: Diagnoses [...] % (Auto) 64.4, Lymph % (Auto) 23.6, Emanuel % (Auto) 6.3, Eos % (Auto) 3.3, [...] documentation, 36minutes. Charges/Coding Visit Charges Inpatient E&M: 95213 Subs Hosp L2 04/04/23 0921 <Electronically signed by Frankie Galindo MD> Cosigner Signature (if applicable): CC: ~ Signed [facility] Work Phone: 1(435) 335-656510-16-2023 Consult note Author Elton Moore [facility] April 03, 2023 5:06pm Note Date/Time April 03, 2023 5 :04pm [facility] Medical Records Department [address] [place] [address] Consultation - Infectious Dx 04/03/23 1703 MR#: [id number] Acct: [id number] Name: PEDRO PABLO SIERRA Rep #:[id number] : 1950 72 From: Elton pierce MD PCP: Dr. Daija Morton MD Status:ADM I N Location: [place] [address] Assessment & Plan Assessment/Plan (1) Acute UTI: [...] % (Auto) 63.8, Lymph % (Auto) 22.5, Emanuel% (Auto) 7.6, Eos % (Auto) 3.9, Baso [...] Toribio MD; Dr. Elton Moore MD~ Signed [facility] Work Phone: 1(320) 678-513010-16-2023 Progress note Author Frankie Galindo [facility] April 03, 2023 10:50am Note Date/Time April 03, 2023 1 0:51am [facility] Medical Records Department [address] [place] [address] Progress Note - Hospitalist 04/03/23 1046 MR#: [id number] Acct: [id number] Name: PEDRO PABLO SIERRA Shannan Rep #:[id number] : 1950 72 From: Frankie Galindo MD PCP: Dr. Daija Morton MD Status:ADM I N Location: [place] [address] Reason for Visit Reason for Visit: Diagnoses [...] % (Auto) 63.8, Lymph % (Auto) 22.5, Emanuel% (Auto) 7.6, Eos % (Auto) 3.9, Baso [...] documentation, 36minutes. Charges/Coding Visit Charges Inpatient E&M: 26871 Subs Hosp L2 04/03/23 1050 <Electronically signed by Frankie Galidno MD> Cosigner Signature (if applicable): CC: ~ Signed [facility] Work Phone: 1(110) 123-481310-15-2023 Progress note Author Frankie Galindo [facility] April 02, 2023 9:12am Note Date/Time April 02, 2023 7 :35am [facility] Medical Records Department [address] [place] [address] Progress Note - Hospitalist 04/02/23 0735 MR#: [id number] Acct: [id number] Name: PEDRO PABLO SIERRA Rep #:[id number] : 1950 72 From: Frankie Galindo MD PCP: Dr. Daija Morton MD Status:ADM I N Location: [place] [address] Reason for Visit Reason for Visit: Diagnoses [...] % (Auto) 58.6, Lymph % (Auto) 23.5, Emanuel % (Auto) 11.2 H, Eos % (Auto) [...] Cosigner Signature (if applicable): CC: ~ Signed [facility] Work Phone: 1(661) 298-314810-15-2023 Progress note Author Fran Cartwright [facility] April 02, 2023 6:53am Note Date/Time April 02, 2023 6 :53am [facility] Medical Records Department [address] [place] [address] Progress Note 04/02/23 0652 MR#: [id number] Acct: [id number] Name: PEDRO PABLO SIERRA R Rep #:[id number] : 1950 72 From: Fran Cartwright MD PCP: Dr. Daija Morton MD Status:ADM I N Location: [place] [address] Progress Note Urine culture returned positive for ESBL E. coli. E. coli is however sensitive to Zosyn in vitro. Cannot be certain whether E. coli will be sensitive in vivo. Zosyn discontinued. Started on Merrem, adjusted for creatinine clearance. 04/02/23652 <Electronically signed by Fran Cartwright MD> Fran Cartwright MD Cosigner Signature (if applicable): CC: ~ Signed [facility] Work Phone: 1(701) 559-124610-14-2023 Progress note Author Frankie Lenolyndsey [facility] April 01, 2023 10:02am Note Date/Time April 01, 2023 7 :53am [facility] Medical Records Department [address] [place] [address] Progress Note - Hospitalist 04/01/23 0751 MR#: [id number] Acct: [id number] Name: MARIELAPEDRO PABLO Pierce Rep #:[id number] : 1950 72 From: Frankie Galindo MD PCP: Dr. Daija Morton MD Status:ADM I N Location: [place] [address] Reason for Visit Reason for Visit: Diagnoses [...] (Auto) 70.2 H, Lymph % (Auto) 15.3 L,Emanuel % (Auto) 11.0 H, Eos % (Auto) [...] tamsulosin and finasteride 10. DVT prophylaxis ? PR Lovenox Time spent in the patient's overall evaluation,decision-making process, review of diagnostic data, adjustment of management, discussion with other providers, nursing nursing and ancillary staff involved in patient's care documentation, 36minutes. Charges/Coding Visit Charges Inpatient E&M: 05248 Subs Hosp L2 04/01/23 1002 <Electronically signed by Frankie Galindo MD> Cosigner Signature (if applicable): CC: ~ Signed [facility] Work Phone: 1(693) 723-777810-13-2023 Progress note Author Celia Toribio [facility] March 31, 2023 11:24am Note Date/Time March 31, 2023 7 :18am [facility] Medical Records Department [address] [place] [address] Progress Note - Hospitalist 03/31/23711 MR#: [id number] Acct: [id number] Name: PEDRO PABLO SIERRA Rep #:[id number] : 1950 72 From: Celia Toribio MD PCP: Dr. Daija Morton MD Status:ADM I N Location: [place] [address] Reason for Visit Reason for Visit: Diagnoses [...] 79.2 H, Lymph % (Auto) 9.3 L, Emanuel % (Auto) 10.5 H, Eos % (Auto) [...] Sl. Cloudy, Urine pH 6.0, Ur Specific Trion 1.020, Urine Protein 100 H, Urine Glucose [...] 17:14 EDT Reading Location ID and State: [facility] / [place] , Service support , Shoulder X-Ray 03/30/23 [...] Reading Location ID and State: [place] / [place] , Service support , Chest X-Ray 03/30/23 [...] documentation, 36minutes. Charges/Coding Visit Charges Inpatient E&M: 36470 Subs Hosp L2 03/31/23 1124 <Electronically signed by Celia Toribio MD> Cosigner Signature (if applicable): CC: ~ Signed [facility] Work Phone: [phone]) 429-257310-12-2023 Discharge summary Author Huber Alvarado [facility] March 30, 2023 8:31pm Note Date/Time March 30, 2023 3 :51pm [facility] Medical Records Department [address] [place] [address] Emergency Department Summary 03/30/23 MR#: [id number] Acct: [id number] Name: PEDRO PABLO SIERRA Shannan Rep #:[id number] : 1950 72 From: Huber Alvarado MD PCP: Dr. Daija Morton MD Status:ADM I N Location: MS3 MG176-3 HPI History of Present Illness Chief Complaint: [...] thinks it is just due to pain. [facility] Medical History (Updated 03/30/23 [...] 79.2 H Lymph % (Auto) 9.3 L Emanuel % (Auto) 10.5 H Eos % (Auto) [...] Sl. Cloudy Urine pH 6.0 Ur Specific Trion 1.020 Urine Protein 100 H Urine Glucose [...] 17:14 EDT Reading Location ID and State: [employer] / [place] , Service support , Shoulder X-Ray 03/30/23 [...] Inabilityto walk Disposition Disposition: Acute Care Hospital [facility] What to do if you have Problems For any increased pain, shortness of breath, bleeding, nausea or vomiting, chestpain, or any unexpected problems, contact your Primary Care Provider. Call [facility] ([phone]) or report to the closest Emergency Room. Call 911 if necessary. 03/30/232030 <Electronically signed by Huber Alvarado MD> Cosigner Signature (if applicable): CC: Dr. Daija Morton MD ~ Signed [facility] Work Phone: 1(691) 350-945510-12-2023 History and physical note Author Fran Cartwright [facility] March 30, 2023 8:08pm Note Date/Time March 30, 2023 7 :32pm [facility] Medical Records Department [address] [place] [address] H&P Exam - Hospitalist 03/30/231931 MR#: [id number] Acct: [id number] Name: PEDRO PABLO SIERRA Rep #:[id number] : 1950 72 From: Fran Cartwright MD PCP: Dr. Daija Morton MD Status:ADM I N Location: MS3 VS077-4 HPI - General General Date of Admission: [...] 79.2 H, Lymph % (Auto) 9.3 L, Emanuel % (Auto) 10.5 H, Eos % (Auto) [...] Sl. Cloudy, Urine pH 6.0, Ur Specific Trion 1.020, Urine Protein 100 H, Urine Glucose [...] 17:14 EDT Reading Location ID and State: [employer] [facility] [employer] , Service support , Shoulder X-Ray 03/30/23 15:46 IMPRESSION: Mild degenerative disease as described with no acute fracture or subluxation. Electronically Signed: Irish Velásquez MD at 17:15 EDT Reading Location ID and State: [employer] , Service support , Thoracic Spine CT 03/30/23 15:46 IMPRESSION: Diffuse osteopenia/osteoporosis with minimal compression fracture of T11, exact age indeterminate. No retropulsion or extension to the pedicles visualized. Underlying degenerative disease. No subluxation. Electronically Signed: Irish Velásquez MD at 17:12 EDT Reading Location ID and State: [employer] , Service support , Chest X-Ray 03/30/23 16:30 IMPRESSION: No acute cardiac pulmonary disease. Electronically Signed: Irish Velásquez MD at 17:15 EDT Reading Location ID and State: [employer] [facility] [employer] , Service support , Assessment & Plan [...] documentation, 70minutes. Charges/Coding Visit Charges Inpatient E&M: 36574 Init Hosp L3 03/30/232007 <Electronically signed by Fran Cartwright MD> Cosigner Signature (if applicable): CC: Dr. Daija Morton MD; Dr. Fran Cartwright MD~ Signed [facility] Work Phone: 1(413) 721-409010-12-2023 Discharge summary Author Huber Alvarado [facility] March 30, 2023 8:31pm Note Date/Time March 30, 2023 3 :51pm [facility] Medical Records Department [address] [place] [address] Emergency Department Summary 03/30/23 MR#: [id number] Acct: [id number] Name: PEDRO PABLO SIERRA Rep #:[id number] : 1950 72 From: Huber Alvarado MD PCP: Dr. Daija Morton MD Status:ADM I N Location: MS3 MK982-8 HPI History of Present Illness Chief Complaint: [...] thinks it is just due to pain. [facility] Medical History (Updated 03/30/23 [...] 79.2 H Lymph % (Auto) 9.3 L Emanuel % (Auto) 10.5 H Eos % (Auto) [...] Sl. Cloudy Urine pH 6.0 Ur Specific Trion 1.020 Urine Protein 100 H Urine Glucose [...] 17:14 EDT Reading Location ID and State: [employer] / [place] , Service support , Shoulder X-Ray 03/30/23 [...] Inabilityto walk Disposition Disposition: Acute Care Hospital [facility] What to do if you have Problems For any increased pain, shortness of breath, bleeding, nausea or vomiting, chestpain, or any unexpected problems, contact your Primary Care Provider. Call [facility] ([phone]) or report to the closest Emergency Room. Call 911 if necessary. 03/30/232030 <Electronically signed by Huber Alvarado MD> Cosigner Signature (if applicable): CC: Dr. Daija Morton MD ~ Signed [facility] Work Phone: 1(967) 221-766909-08-2023 Miscellaneous Notes* Telephone Encounter - Debby Saldana [...] you. Debby Saldana LPN documented in this encounterK[facility]08-[facility]-2023 Miscellaneous Notes* Telephone Encounter - Gabino [...] you. Gabino Delgado RN documented in this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 of Past illness Narrative* [...] Neurotoin BID at home Patient started on [place] postoperatively, pain controlled at time of discharge. Ischemia of extremity 10/14/2013 02/10/2014 Overview: - admitted to [facility] vascular surgery twice in October 2013, s/p left femoral endarterectomy with patch, US guided access RCFA, L profundaplasty, RUFUS recanalization & stenting, CRISPIN stenting on 10/23/13 for aorto-occlusive critical limb ischemia - S/p 11/12-11/19/13 [facility] Vascular Surgery for aortoiliac thrombosis (BLE pain), [...] of this encounter (statuses as of 10/22/2021) [facility]04-24-2020 History of Past illness Narrative* [...] Neurotoin BID at home Patient started on [place] postoperatively, pain controlled at time of discharge. Ischemia of extremity 10/14/2013 02/10/2014 Overview: - admitted to [facility] vascular surgery twice in October 2013, s/p left femoral endarterectomy with patch, US guided access RCFA, L profundaplasty, RUFUS recanalization & stenting, CRISPIN stenting on 10/23/13 for aorto-occlusive critical limb ischemia - S/p 11/12-11/19/13 [facility] Vascular Surgery for aortoiliac thrombosis (BLE pain), [...] of this encounter (statuses as of 10/22/2021) [facility]04-24-2020 History of Past illness Narrative* [...] Neurotoin BID at home Patient started on [place] postoperatively, pain controlled at time of discharge. Ischemia of extremity 10/14/2013 02/10/2014 Overview: - admitted to [facility] vascular surgery twice in October 2013, s/p left femoral endarterectomy with patch, US guided access RCFA, L profundaplasty, RUFUS recanalization & stenting, CRISPIN stenting on 10/23/13 for aorto-occlusive critical limb ischemia - S/p 11/12-11/19/13 [facility] Vascular Surgery for aortoiliac thrombosis (BLE pain), [...] of this encounter (statuses as of 10/27/2021) [facility]04-24-2020 History of Past illness Narrative* [...] Neurotoin BID at home Patient started on [place] postoperatively, pain controlled at time of discharge. Ischemia of extremity 10/14/2013 02/10/2014 Overview: - admitted to [facility] vascular surgery twice in October 2013, s/p left femoral endarterectomy with patch, US guided access RCFA, L profundaplasty, RUFUS recanalization & stenting, CRISPIN stenting on 10/23/13 for aorto-occlusive critical limb ischemia - S/p 11/12-11/19/13 [facility] Vascular Surgery for aortoiliac thrombosis (BLE pain), [...] of this encounter (statuses as of 11/08/2021) [facility]04-[facility]2020 History of Past illness Narrative* [...] Neurotoin BID at home Patient started on [place] postoperatively, pain controlled at time of discharge. Ischemia of extremity 10/14/2013 02/10/2014 Overview: - admitted to [facility] vascular surgery twice in October 2013, s/p left femoral endarterectomy with patch, US guided access RCFA, L profundaplasty, RUFUS recanalization & stenting, CRISPIN stenting on 10/23/13 for aorto-occlusive critical limb ischemia - S/p 11/12-11/19/13 [facility] Vascular Surgery for aortoiliac thrombosis (BLE pain), [...] of this encounter (statuses as of 11/08/2021) [facility]04-24[facility]2020 History of Past illness Narrative* [...] Neurotoin BID at home Patient started on [place] postoperatively, pain controlled at time of discharge. Ischemia of extremity 10/14/2013 02/10/2014 Overview: - admitted to [facility] vascular surgery twice in October 2013, s/p left femoral endarterectomy with patch, US guided access RCFA, L profundaplasty, RUFUS recanalization & stenting, CRISPIN stenting on 10/23/13 for aorto-occlusive critical limb ischemia - S/p 11/12-11/19/13 [facility] Vascular Surgery for aortoiliac thrombosis (BLE pain), [...] of this encounter (statuses as of 11/11/2021) [facility]04-[facility]2020 History of Past illness Narrative* [...] Neurotoin BID at home Patient started on [place] postoperatively, pain controlled at time of discharge. Ischemia of extremity 10/14/2013 02/10/2014 Overview: - admitted to [facility] vascular surgery twice in October 2013, s/p left femoral endarterectomy with patch, US guided access RCFA, L profundaplasty, RUFUS recanalization & stenting, CRISPIN stenting on 10/23/13 for aorto-occlusive critical limb ischemia - S/p 11/12-11/19/13 [facility] Vascular Surgery for aortoiliac thrombosis (BLE pain), [...] of this encounter (statuses as of 11/12/2021) [facility]04-[facility]2020 History of Past illness Narrative* [...] Neurotoin BID at home Patient started on [place] postoperatively, pain controlled at time of discharge. Ischemia of extremity 10/14/2013 02/10/2014 Overview: - admitted to [facility] vascular surgery twice in October 2013, s/p left femoral endarterectomy with patch, US guided access RCFA, L profundaplasty, RUFUS recanalization & stenting, CRISPIN stenting on 10/23/13 for aorto-occlusive critical limb ischemia - S/p 11/12-11/19/13 [facility] Vascular Surgery for aortoiliac thrombosis (BLE pain), [...] of this encounter (statuses as of 11/16/2021) [facility]2020 History of Past illness Narrative* [...] Neurotoin BID at home Patient started on [place] postoperatively, pain controlled at time of discharge. Ischemia of extremity 10/14/2013 02/10/2014 Overview: - admitted to [facility] vascular surgery twice in October 2013, s/p left femoral endarterectomy with patch, US guided access RCFA, L profundaplasty, RUFUS recanalization & stenting, CRISPIN stenting on 10/23/13 for aorto-occlusive critical limb ischemia - S/p 11/12-11/19/13 [facility] Vascular Surgery for aortoiliac thrombosis (BLE pain), [...] of this encounter (statuses as of 11/17/2021) [facility]04[facility]2020 History of Past illness Narrative* [...] Neurotoin BID at home Patient started on [place] postoperatively, pain controlled at time of discharge. Ischemia of extremity 10/14/2013 02/10/2014 Overview: - admitted to [facility] vascular surgery twice in October 2013, s/p left femoral endarterectomy with patch, US guided access RCFA, L profundaplasty, RUFUS recanalization & stenting, CRISPIN stenting on 10/23/13 for aorto-occlusive critical limb ischemia - S/p 11/12-11/19/13 [facility] Vascular Surgery for aortoiliac thrombosis (BLE pain), [...] of this encounter (statuses as of 11/17/2021) [facility]2020 History of Past illness Narrative* [...] Neurotoin BID at home Patient started on [place] postoperatively, pain controlled at time of discharge. Ischemia of extremity 10/14/2013 02/10/2014 Overview: - admitted to [facility] vascular surgery twice in October 2013, s/p left femoral endarterectomy with patch, US guided access RCFA, L profundaplasty, RUFUS recanalization & stenting, CRISPIN stenting on 10/23/13 for aorto-occlusive critical limb ischemia - S/p 11/12-11/19/13 [facility] Vascular Surgery for aortoiliac thrombosis (BLE pain), [...] of this encounter (statuses as of 11/18/2021) [facility]04-[facility]2020 History of Past illness Narrative* [...] Neurotoin BID at home Patient started on [place] postoperatively, pain controlled at time of discharge. Ischemia of extremity 10/14/2013 02/10/2014 Overview: - admitted to [facility] vascular surgery twice in October 2013, s/p left femoral endarterectomy with patch, US guided access RCFA, L profundaplasty, RUFUS recanalization & stenting, CRISPIN stenting on 10/23/13 for aorto-occlusive critical limb ischemia - S/p 11/12-11/19/13 [facility] Vascular Surgery for aortoiliac thrombosis (BLE pain), [...] of this encounter (statuses as of 11/19/2021) [facility]2020 History of Past illness Narrative* [...] Neurotoin BID at home Patient started on [place] postoperatively, pain controlled at time of discharge. Ischemia of extremity 10/14/2013 02/10/2014 Overview: - admitted to [facility] vascular surgery twice in October 2013, s/p left femoral endarterectomy with patch, US guided access RCFA, L profundaplasty, RUFUS recanalization & stenting, CRISPIN stenting on 10/23/13 for aorto-occlusive critical limb ischemia - S/p 11/12-11/19/13 [facility] Vascular Surgery for aortoiliac thrombosis (BLE pain), [...] of this encounter (statuses as of 11/19/2021) [facility]2020 History of Past illness Narrative* [...] Neurotoin BID at home Patient started on [place] postoperatively, pain controlled at time of discharge. Ischemia of extremity 10/14/2013 02/10/2014 Overview: - admitted to [facility] vascular surgery twice in October 2013, s/p left femoral endarterectomy with patch, US guided access RCFA, L profundaplasty, RUFUS recanalization & stenting, CRISPIN stenting on 10/23/13 for aorto-occlusive critical limb ischemia - S/p 11/12-11/19/13 [facility] Vascular Surgery for aortoiliac thrombosis (BLE pain), [...] of this encounter (statuses as of 11/26/2021) [facility]2020 History of Past illness Narrative* [...] Neurotoin BID at home Patient started on [place] postoperatively, pain controlled at time of discharge. Ischemia of extremity 10/14/2013 02/10/2014 Overview: - admitted to [facility] vascular surgery twice in October 2013, s/p left femoral endarterectomy with patch, US guided access RCFA, L profundaplasty, RUFUS recanalization & stenting, CRISPIN stenting on 10/23/13 for aorto-occlusive critical limb ischemia - S/p 11/12-11/19/13 [facility] Vascular Surgery for aortoiliac thrombosis (BLE pain), [...] of this encounter (statuses as of 11/30/2021) [facility]04[facility]2020 History of Past illness Narrative* [...] Neurotoin BID at home Patient started on [place] postoperatively, pain controlled at time of discharge. Ischemia of extremity 10/14/2013 02/10/2014 Overview: - admitted to [facility] vascular surgery twice in October 2013, s/p left femoral endarterectomy with patch, US guided access RCFA, L profundaplasty, RUFUS recanalization & stenting, CRISPIN stenting on 10/23/13 for aorto-occlusive critical limb ischemia - S/p 11/12-11/19/13 [facility] Vascular Surgery for aortoiliac thrombosis (BLE pain), [...] of this encounter (statuses as of 12/03/2021) [facility]2020 History of Past illness Narrative* [...] Neurotoin BID at home Patient started on [place] postoperatively, pain controlled at time of discharge. Ischemia of extremity 10/14/2013 02/10/2014 Overview: - admitted to [facility] vascular surgery twice in October 2013, s/p left femoral endarterectomy with patch, US guided access RCFA, L profundaplasty, RUFUS recanalization & stenting, CRISPIN stenting on 10/23/13 for aorto-occlusive critical limb ischemia - S/p 11/12-11/19/13 [facility] Vascular Surgery for aortoiliac thrombosis (BLE pain), [...] of this encounter (statuses as of 12/07/2021) [facility]2020 History of Past illness Narrative* [...] Neurotoin BID at home Patient started on [place] postoperatively, pain controlled at time of discharge. Ischemia of extremity 10/14/2013 02/10/2014 Overview: - admitted to [facility] vascular surgery twice in October 2013, s/p left femoral endarterectomy with patch, US guided access RCFA, L profundaplasty, RUFUS recanalization & stenting, CRISPIN stenting on 10/23/13 for aorto-occlusive critical limb ischemia - S/p 11/12-11/19/13 [facility] Vascular Surgery for aortoiliac thrombosis (BLE pain), [...] of this encounter (statuses as of 01/14/2022) [facility]2020 History of Past illness Narrative* [...] Neurotoin BID at home Patient started on [place] postoperatively, pain controlled at time of discharge. Ischemia of extremity 10/14/2013 02/10/2014 Overview: - admitted to [facility] vascular surgery twice in October 2013, s/p left femoral endarterectomy with patch, US guided access RCFA, L profundaplasty, RUFUS recanalization & stenting, CRISPIN stenting on 10/23/13 for aorto-occlusive critical limb ischemia - S/p 11/12-11/19/13 [facility] Vascular Surgery for aortoiliac thrombosis (BLE pain), [...] of this encounter (statuses as of 01/14/2022) [facility]2020 History of Past illness Narrative* [...] Neurotoin BID at home Patient started on [place] postoperatively, pain controlled at time of discharge. Ischemia of extremity 10/14/2013 02/10/2014 Overview: - admitted to [facility] vascular surgery twice in October 2013, s/p left femoral endarterectomy with patch, US guided access RCFA, L profundaplasty, RUFUS recanalization & stenting, CRISPIN stenting on 10/23/13 for aorto-occlusive critical limb ischemia - S/p 11/12-11/19/13 [facility] Vascular Surgery for aortoiliac thrombosis (BLE pain), [...] of this encounter (statuses as of 01/25/2022) [facility]2020 History of Past illness Narrative* [...] Neurotoin BID at home Patient started on [place] postoperatively, pain controlled at time of discharge. Ischemia of extremity 10/14/2013 02/10/2014 Overview: - admitted to [facility] vascular surgery twice in October 2013, s/p left femoral endarterectomy with patch, US guided access RCFA, L profundaplasty, RUFUS recanalization & stenting, CRISPIN stenting on 10/23/13 for aorto-occlusive critical limb ischemia - S/p 11/12-11/19/13 [facility] Vascular Surgery for aortoiliac thrombosis (BLE pain), [...] of this encounter (statuses as of 01/28/2022) [facility]2020 History of Past illness Narrative* [...] Neurotoin BID at home Patient started on [place] postoperatively, pain controlled at time of discharge. Ischemia of extremity 10/14/2013 02/10/2014 Overview: - admitted to [facility] vascular surgery twice in October 2013, s/p left femoral endarterectomy with patch, US guided access RCFA, L profundaplasty, RUFUS recanalization & stenting, CRISPIN stenting on 10/23/13 for aorto-occlusive critical limb ischemia - S/p 11/12-11/19/13 [facility] Vascular Surgery for aortoiliac thrombosis (BLE pain), [...] of this encounter (statuses as of 01/31/2022) [facility]2020 History of Past illness Narrative* [...] Neurotoin BID at home Patient started on [place] postoperatively, pain controlled at time of discharge. Ischemia of extremity 10/14/2013 02/10/2014 Overview: - admitted to [facility] vascular surgery twice in October 2013, s/p left femoral endarterectomy with patch, US guided access RCFA, L profundaplasty, RUFUS recanalization & stenting, CRISPIN stenting on 10/23/13 for aorto-occlusive critical limb ischemia - S/p 11/12-11/19/13 [facility] Vascular Surgery for aortoiliac thrombosis (BLE pain), [...] of this encounter (statuses as of 01/31/2022) [facility]2020 History of Past illness Narrative* [...] Neurotoin BID at home Patient started on [place] postoperatively, pain controlled at time of discharge. Ischemia of extremity 10/14/2013 02/10/2014 Overview: - admitted to [facility] vascular surgery twice in October 2013, s/p left femoral endarterectomy with patch, US guided access RCFA, L profundaplasty, RUFUS recanalization & stenting, CRISPIN stenting on 10/23/13 for aorto-occlusive critical limb ischemia - S/p 11/12-11/19/13 [facility] Vascular Surgery for aortoiliac thrombosis (BLE pain), [...] of this encounter (statuses as of 01/31/2022) [facility]2020 History of Past illness Narrative* [...] Neurotoin BID at home Patient started on [place] postoperatively, pain controlled at time of discharge. Ischemia of extremity 10/14/2013 02/10/2014 Overview: - admitted to [facility] vascular surgery twice in October 2013, s/p left femoral endarterectomy with patch, US guided access RCFA, L profundaplasty, RUFUS recanalization & stenting, CRISPIN stenting on 10/23/13 for aorto-occlusive critical limb ischemia - S/p 11/12-11/19/13 [facility] Vascular Surgery for aortoiliac thrombosis (BLE pain), [...] of this encounter (statuses as of 02/03/2022) [facility] History of Past illness Narrative* [...] Neurotoin BID at home Patient started on [place] postoperatively, pain controlled at time of discharge. Ischemia of extremity 10/14/2013 02/10/2014 Overview: - admitted to [facility] vascular surgery twice in October 2013, s/p [...] of this encounter (statuses as of 02/24/2022) [facility] History of Past illness Narrative* [...] Neurotoin BID at home Patient started on [place] postoperatively, pain controlled at time of discharge. Ischemia of extremity 10/14/2013 02/10/2014 Overview: - admitted to [facility] vascular surgery twice in October 2013, s/p [...] of this encounter (statuses as of 02/24/2022) [facility] History of Past illness Narrative* [...] Neurotoin BID at home Patient started on [place] postoperatively, pain controlled at time of discharge. Ischemia of extremity 10/14/2013 02/10/2014 Overview: - admitted to [facility] vascular surgery twice in October 2013, s/p [...] of this encounter (statuses as of 03/02/2022) [facility] History of Past illness Narrative* [...] Neurotoin BID at home Patient started on [place] postoperatively, pain controlled at time of discharge. Ischemia of extremity 10/14/2013 02/10/2014 Overview: - admitted to [facility] vascular surgery twice in October 2013, s/p [...] of this encounter (statuses as of 03/10/2022) [facility] History of Past illness Narrative* [...] Neurotoin BID at home Patient started on [place] postoperatively, pain controlled at time of discharge. Ischemia of extremity 10/14/2013 02/10/2014 Overview: - admitted to [facility] vascular surgery twice in October 2013, s/p left femoral endarterectomy with patch, US guided access RCFA, L profundaplasty, RUFUS recanalization & stenting, CRISPIN stenting on 10/23/13 for aorto-occlusive critical limb ischemia - S/p 11/12-11/19/13 [facility] Vascular Surgery for aortoiliac thrombosis (BLE pain), [...] of this encounter (statuses as of 03/10/2022) [facility] History of Past illness Narrative* [...] Neurotoin BID at home Patient started on [place] postoperatively, pain controlled at time of discharge. Ischemia of extremity 10/14/2013 02/10/2014 Overview: - admitted to [facility] vascular surgery twice in October 2013, s/p left femoral endarterectomy with patch, US guided access RCFA, L profundaplasty, RUFUS recanalization & stenting, CRISPIN stenting on 10/23/13 for aorto-occlusive critical limb ischemia - S/p 11/12-11/19/13 [facility] Vascular Surgery for aortoiliac thrombosis (BLE pain), [...] of this encounter (statuses as of 03/11/2022) [facility] History of Past illness Narrative* [...] Neurotoin BID at home Patient started on [place] postoperatively, pain controlled at time of discharge. Ischemia of extremity 10/14/2013 02/10/2014 Overview: - admitted to [facility] vascular surgery twice in October 2013, s/p left femoral endarterectomy with patch, US guided access RCFA, L profundaplasty, RUFUS recanalization & stenting, CRISPIN stenting on 10/23/13 for aorto-occlusive critical limb ischemia - S/p 11/12-11/19/13 [facility] Vascular Surgery for aortoiliac thrombosis (BLE pain), [...] of this encounter (statuses as of 03/11/2022) [facility] History of Past illness Narrative* [...] Neurotoin BID at home Patient started on [place] postoperatively, pain controlled at time of discharge. Ischemia of extremity 10/14/2013 02/10/2014 Overview: - admitted to [facility] vascular surgery twice in October 2013, s/p left femoral endarterectomy with patch, US guided access RCFA, L profundaplasty, RUFUS recanalization & stenting, CRISPIN stenting on 10/23/13 for aorto-occlusive critical limb ischemia - S/p 11/12-11/19/13 [facility] Vascular Surgery for aortoiliac thrombosis (BLE pain), [...] of this encounter (statuses as of 03/18/2022) [facility] History of Past illness Narrative* [...] Neurotoin BID at home Patient started on [place] postoperatively, pain controlled at time of discharge. Ischemia of extremity 10/14/2013 02/10/2014 Overview: - admitted to [facility] vascular surgery twice in October 2013, s/p left femoral endarterectomy with patch, US guided access RCFA, L profundaplasty, RUFUS recanalization & stenting, CRISPIN stenting on 10/23/13 for aorto-occlusive critical limb ischemia - S/p 11/12-11/19/13 [facility] Vascular Surgery for aortoiliac thrombosis (BLE pain), [...] of this encounter (statuses as of 03/24/2022) [facility] History of Past illness Narrative* [...] Neurotoin BID at home Patient started on [place] postoperatively, pain controlled at time of discharge. Ischemia of extremity 10/14/2013 02/10/2014 Overview: - admitted to [facility] vascular surgery twice in October 2013, s/p [...] of this encounter (statuses as of 04/01/2022) [facility] History of Past illness Narrative* [...] Neurotoin BID at home Patient started on [place] postoperatively, pain controlled at time of discharge. Ischemia of extremity 10/14/2013 02/10/2014 Overview: - admitted to [facility] vascular surgery twice in October 2013, s/p left femoral endarterectomy with patch, US guided access RCFA, L profundaplasty, RUFUS recanalization & stenting, CRISPIN stenting on 10/23/13 for aorto-occlusive critical limb ischemia - S/p 11/12-11/19/13 [facility] Vascular Surgery for aortoiliac thrombosis (BLE pain), [...] of this encounter (statuses as of 06/19/2022) [facility] History of Past illness Narrative* [...] Neurotoin BID at home Patient started on [place] postoperatively, pain controlled at time of discharge. Ischemia of extremity 10/14/2013 02/10/2014 Overview: - admitted to [facility] vascular surgery twice in October 2013, s/p [...] of this encounter (statuses as of 08/02/2022) [facility] History of Past illness Narrative* [...] for aorto-occlusive critical limb ischemia, CAD previous MN, DM, HTN, DLD, COPD, UC/IBD on sulfasalazine [...] Neurotoin BID at home Patient started on [place] postoperatively, pain controlled at time of discharge. Urinary retention 10/25/2013 08/18/2022 Overview: Home med: tamsulosin Plan: -Resume Tamsulosin DISPOSITION AND FOLLOW-UP 10/25/20132022 Overview: CM following for d/c needs. PT/OT to evaluate-->recommending home PT 07/08/2014 Discharge with home care today Ischemia of extremity 10/14/2013 02/10/2014 Overview: - admitted to [facility] vascular surgery twice in October 2013, s/p left femoral endarterectomy with patch, US guided access RCFA, L profundaplasty, RUFUS recanalization & stenting, CRISPIN stenting on 10/23/13 for aorto-occlusive critical limb ischemia - S/p 11/12-11/19/13 [facility] Vascular Surgery for aortoiliac thrombosis (BLE pain), [...] of this encounter (statuses as of 08/25/2022) [facility]04-[facility]2020 History of Past illness Narrative* [...] for aorto-occlusive critical limb ischemia, CAD previous MN, DM, HTN, DLD, COPD, UC/IBD on sulfasalazine [...] Neurotoin BID at home Patient started on [place] postoperatively, pain controlled at time of discharge. Urinary retention 10/25/2013 08/18/2022 Overview: Home med: tamsulosin Plan: -Resume Tamsulosin DISPOSITION AND FOLLOW-UP 10/25/20132022 Overview: CM following for d/c needs. PT/OT to evaluate-->recommending home PT 07/08/2014 Discharge with home care today Ischemia of extremity 10/14/2013 02/10/2014 Overview: - admitted to [facility] vascular surgery twice in October 2013, s/p left femoral endarterectomy with patch, US guided access RCFA, L profundaplasty, RUFUS recanalization & stenting, CRISPIN stenting on 10/23/13 for aorto-occlusive critical limb ischemia - S/p 11/12-11/19/13 [facility] Vascular Surgery for aortoiliac thrombosis (BLE pain), [...] of this encounter (statuses as of 08/27/2022) [facility]2020 History of Past illness Narrative* [...] for aorto-occlusive critical limb ischemia, CAD previous MN, DM, HTN, DLD, COPD, UC/IBD on sulfasalazine [...] Neurotoin BID at home Patient started on [place] postoperatively, pain controlled at time of discharge. Urinary retention 10/25/2013 08/18/2022 Overview: Home med: tamsulosin Plan: -Resume Tamsulosin DISPOSITION AND FOLLOW-UP 10/25/20132022 Overview: CM following for d/c needs. PT/OT to evaluate-->recommending home PT 07/08/2014 Discharge with home care today Ischemia of extremity 10/14/2013 02/10/2014 Overview: - admitted to [facility] vascular surgery twice in October 2013, s/p left femoral endarterectomy with patch, US guided access RCFA, L profundaplasty, RUFUS recanalization & stenting, CRISPIN stenting on 10/23/13 for aorto-occlusive critical limb ischemia - S/p 11/12-11/19/13 [facility] Vascular Surgery for aortoiliac thrombosis (BLE pain), [...] of this encounter (statuses as of 08/27/2022) [facility] History of Past illness Narrative* [...] for aorto-occlusive critical limb ischemia, CAD previous MN, DM, HTN, DLD, COPD, UC/IBD on sulfasalazine [...]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 Depressive disorder, not elsewhere classified COPD (chronic obstructive pulmonary disease) ([facility])- Primary Chronic airway obstruction, [...] Coronary atherosclerosis of unspecified type of vessel, prairie band or graft PVD (peripheral vascular disease) ([facility]) Peripheral vascular disease, unspecified Melena Blood in stool Depression Depressive disorder, not elsewhere classified Anticoagulation goal of INR 2 to 3- Primary Encounter for therapeutic drug monitoring PVD (peripheral vascular disease) ([facility]) Peripheral vascular disease, unspecified Hospital discharge follow-up Other follow-up examination Melena- Primary Blood in stool Essential hypertension Unspecified essential hypertension Tobacco use disorder Anxiety and depression Dysthymic disorder Essential hypertension- Primary Unspecified essential hypertension Smoker Tobacco use disorder Anxiety and depression Dysthymic disorder PVD (peripheral vascular disease) ([facility])- Primary Peripheral vascular disease, unspecified Tobacco use disorder Pain in left shoulder Pain in joint, shoulder region Lupus anticoagulant disorder ([facility]) Primary hypercoagulable state Pulmonary emphysema, unspecified emphysema type ([facility]) Need for vaccination Need for prophylactic vaccination and inoculation against unspecified single disease Pre-operative examination- Primary Preoperative examination, unspecified PVD (peripheral vascular disease) ([facility]) Peripheral vascular disease, unspecified Coronary artery disease, angina presence unspecified, unspecified vessel or lesion type, unspecified whether prairie band or transplanted heart Mixed hyperlipidemia Essential hypertension Unspecified essential hypertension Pulmonary emphysema, unspecified emphysema type ([facility]) PJ (obstructive sleep apnea) Obstructive sleep apnea (adult) (pediatric) IBD (inflammatory bowel disease) Other and unspecified noninfectious gastroenteritis and colitis Gastroesophageal reflux disease, esophagitis presence not specified Urinary retention with incomplete bladder emptying Incomplete bladder emptying Anemia due to acute blood loss Acute posthemorrhagic anemia Lupus anticoagulant disorder ([facility]) Primary hypercoagulable state Chronic bilateral low back pain without sciatica Anxiety and depression Dysthymic disorder Illiterate Educational circumstance Left leg pain Pain in limb [facility] Diagnosis COPD (chronic obstructive pulmonary disease) ([facility])- Primary Chronic airway obstruction, not elsewhere classified Urinary retention with incomplete bladder emptying Incomplete bladder emptying Anticoagulation goal of INR 2 to 3 Encounter for therapeutic drug monitoring PVD (peripheral vascular disease) ([facility]) Peripheral vascular disease, unspecified Encounter to establish care Other reasons for seeking consultation GI bleeding- Primary Acute posthemorrhagic anemia Lupus anticoagulant disorder ([facility]) Primary hypercoagulable state Dysuria- Primary GI bleeding Acute posthemorrhagic anemia Lupus anticoagulant disorder ([facility]) Primary hypercoagulable state PVD (peripheral vascular disease) ([facility]) Peripheral vascular disease, unspecified IBD (inflammatory bowel disease) Other and unspecified noninfectious gastroenteritis and colitis Blurring of vision Other specified visual disturbances Anticoagulation goal of INR 2 to 3 Encounter for therapeutic drug monitoring Hypertension Unspecified essential hypertension s/p left femoral endarterectomy/aortoiliac stenting 10/2013 Peripheral vascular disease, unspecified Elevated glucose Other abnormal glucose COPD (chronic obstructive pulmonary disease) ([facility]) Chronic airway obstruction, not elsewhere classified Back pain Backache, unspecified PVD (peripheral vascular disease) ([facility])- Primary Peripheral vascular disease, unspecified COPD (chronic obstructive pulmonary disease) ([facility]) Chronic airway obstruction, not elsewhere classified Anticoagulation goal of INR 2 to 3 Encounter for therapeutic drug monitoring Anemia due to acute blood loss Acute posthemorrhagic anemia Hypertension Unspecified essential hypertension Hyperlipidemia Other and unspecified hyperlipidemia Tobacco use disorder Ulcerative colitis (HCC)- Primary Ulcerative colitis, unspecified PVD (peripheral vascular disease) ([facility]) Peripheral vascular disease, unspecified Lupus anticoagulant disorder ([facility]) Primary hypercoagulable state Tobacco use disorder Melena Blood in stool COPD (chronic obstructive pulmonary disease) ([facility]) Chronic airway obstruction, not elsewhere classified Dark urine Other nonspecific finding on examination of urine Hospital discharge follow-up- Primary Other follow-up examination Hypertension Unspecified essential hypertension Hematoma, postoperative Hematoma complicating a procedure s/p left femoral endarterectomy/aortoiliac stenting 10/2013 Peripheral vascular disease, unspecified COPD (chronic obstructive pulmonary disease) ([facility]) Chronic airway obstruction, not [...] Coronary atherosclerosis of unspecified type of vessel, prairie band or graft PVD (peripheral vascular disease) (HCC) Peripheral vascular disease, unspecified Melena Blood in stool Depression Depressive disorder, not elsewhere classified Anticoagulation goal of INR 2 to 3- Primary Encounter for therapeutic drug monitoring PVD (peripheral vascular disease) ([facility]) Peripheral vascular disease, unspecified Hospital discharge follow-up Other follow-up examination Melena- Primary Blood in stool Essential hypertension Unspecified essential hypertension Tobacco use disorder Anxiety and depression Dysthymic disorder Essential hypertension- Primary Unspecified essential hypertension Smoker Tobacco use disorder Anxiety and depression Dysthymic disorder PVD (peripheral vascular disease) ([facility])- Primary Peripheral vascular disease, unspecified Tobacco use disorder Pain in left shoulder Pain in joint, shoulder region Lupus anticoagulant disorder (HCC) Primary hypercoagulable state Pulmonary emphysema, unspecified emphysema type (HCC) Need for vaccination Need for prophylactic vaccination and inoculation against unspecified single disease Pre-operative examination- Primary Preoperative examination, unspecified PVD (peripheral vascular disease) ([facility]) Peripheral vascular disease, unspecified Coronary artery disease, angina presence unspecified, unspecified vessel or lesion type, unspecified whether prairie band or transplanted heart Mixed hyperlipidemia Essential hypertension [...] hematuria, site unspecified [facility]* Diagnosis Onset Date Resolution Status Admit Date Acute diarrhea acute August 25, 2024 6:12pm Debility acute August 25 6:12pm Weakness acute August 25 6:12pm 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 August 252024 6:12pm [facility] Work Phone: Evaluation note* Diagnosis COPD [...] Coronary atherosclerosis of unspecified type of vessel, prairie band or graft PVD (peripheral vascular disease) Peripheral [...] unspecified vessel or lesion type, unspecified whether prairie band or transplanted heart Mixed hyperlipidemia Essential hypertension [...] and fatigue [facility] Diagnosis COPD (chronic obstructive pulmonary [...] classified COPD (chronic obstructive pulmonary disease) ([facility])- Primary Chronic airway obstruction, [...] Coronary atherosclerosis of unspecified type of vessel, prairie band or graft PVD (peripheral vascular disease) Peripheral [...] unspecified vessel or lesion type, unspecified whether prairie band or transplanted heart Mixed hyperlipidemia Essential hypertension [...] Educational circumstance Wheezing [facility] Diagnosis COPD (chronic obstructive [...] glucose COPD (chronic obstructive pulmonary disease) ([facility]) Chronic airway obstruction, not [...] vascular disease, unspecified Lupus anticoagulant disorder ([facility]) Primary hypercoagulable state Tobacco [...] classified COPD (chronic obstructive pulmonary disease) ([facility])- Primary Chronic airway obstruction, [...] Coronary atherosclerosis of unspecified type of vessel, prairie band or graft PVD (peripheral vascular disease) Peripheral [...] unspecified vessel or lesion type, unspecified whether prairie band or transplanted heart Mixed hyperlipidemia Essential hypertension [...] on supplemental oxygen [facility] Diagnosis COPD (chronic obstructive [...] Coronary atherosclerosis of unspecified type of vessel, prairie band or graft PVD (peripheral vascular disease) Peripheral [...] unspecified vessel or lesion type, unspecified whether prairie band or transplanted heart Mixed hyperlipidemia Essential hypertension [...] Shortness of breath [facility]* Diagnosis COPD (chronic obstructive pulmonary disease) ([facility])- Primary Chronic airway obstruction, [...] Coronary atherosclerosis of unspecified type of vessel, prairie band or graft PVD (peripheral vascular disease) Peripheral [...] unspecified vessel or lesion type, unspecified whether prairie band or transplanted heart Mixed hyperlipidemia Essential hypertension [...] and unspecified hyperlipidemia [facility] Author Fran Cartwright [facility] March 30, 2023 8:08pm Note Date/Time March 30, 2023 7 :32pm [facility] Medical Records Department [address] [place] [address] H&P Exam - Hospitalist 03/30/231931 MR#: [id number] Acct: [id number] Name: PEDOR PABLO SIERRA Rep #:[id number] : 1950 72 From: Fran Cartwright MD PCP: Dr. Daija Morton MD Status:ADM I N Location: [facility] [id number] HPI - General General Date of Admission: [...] 79.2 H, Lymph % (Auto) 9.3 L, Emanuel % (Auto) 10.5 H, Eos % (Auto) [...] Sl. Cloudy, Urine pH 6.0, Ur Specific Trion 1.020, Urine Protein 100 H, Urine Glucose [...] documentation, 70minutes. Charges/Coding Visit Charges Inpatient E&M: 29940 Init Hosp L3 03/30/232007 <Electronically signed by Fran Cartwright MD> Cosigner Signature (if applicable): CC: Dr. Daija Morton MD; Dr. Fran Cartwright MD~ Signed [facility] Work Phone: History and physical note Author Андрей Cooley [facility] July 24, 2023 9:10pm Note Date/Time July 24, 2023 9 :10pm [facility] Medical Records Department [address] [place] [address] History & Physical Exam 07/24/232103 MR#: [id number] Acct: [id number] Name: PEDRO PABLO SIERRA Rep #:[id number] : 1950 73 From: Андрей Cooley MD [...] past medical history of recent discharge from longterm for debility and weakness. Patient does also have a history of long-term smoking. Patient denies any chest pain, shortness of breath fevers or chills at present time. He will be admitted for pain control and case management to arrange for custodial care facility. [facility] Medical History Asthma [...] 74.0 H, Lymph % (Auto) 16.0 L, Emanuel % (Auto) 7.3, Eos % (Auto) 1.1, [...] 17:27 EST Reading Location ID and State: [address] [place] [address] Tel , Service support , Assessment & [...] on anticoagulation Charges/Coding Visit Charges Inpatient E&M: 88034 Init Hosp L2 07/24/232109 <Electronically signed by Андрей Cooley MD> Cosigner Signature (if applicable): CC: Dr. Daija Morton MD; Dr. Андрей Cooley MD~ Signed [facility] Work Phone: History and physical note Author Lisha Talamantes [facility] Note Date/Time August 25, 2024 7:[address] [facility] Medical Records Department [address] [place] [address] H&P Exam - Hospitalist 08/25/24 1820 MR#: [id number] Acct: [id number] Name: PEDRO PABLO SIERRA Rep #:[id number] : 1950 74 From: Lisha Talamantes DO PCP: Dr. Daija Morton MD Status:ADM I NO Location: [place]3 FI857-0 HPI - General General Date of Admission: 08/25/24 Date of Service: 08/25/24 Chief Complaint: Diarrhea/generalized weakness HPI Narrative PEDRO PABLO SIERRA, is a 74 M who presented to the emergency department [facility] on 08/25/2024 with a chief complaint of generalized weakness and diarrhea. Patient had recently been at [facility] and was discharged about 5 [...] 78.4 H, Lymph % (Auto) 10.3 L, Emanuel % (Auto) 9.9, Eos % (Auto) 0.3, [...] the current livingenvironment -Was recently discharged from [facility] however patient wasadamant that he [...] need clarified Charges/Coding Visit Charges Inpatient E&M: 46070 Init Hosp L2 08/25/24 1900 <Electronically signed by Lisha Talamantes DO> Cosigner Signature (if applicable): CC: Dr. Daija Morton MD; Dr. Lisha Talamantes DO~ Signed [facility] Work Phone: History and physical note Author Shilpa Contreras [facility] Note Date/Time December 13, 2024 8:[address] [facility] Medical Records Department [address] [place] [address] H&P Exam - Hospitalist 12/13/241948 MR#: [id number] Acct: [id number] Name: PEDRO PABLO SIERRA Rep #:[id number] : 1950 74 From: Shilpa Contreras MD PCP: Dr. Daija Morton MD Status:ADM I N Location: [place] [address] HPI - General General Date of Admission: [...] PJ, Tobacco use who presents to the [facility] ED on 12/13/2024 with history of [...] % (Auto) 67.3, Lymph % (Auto) 19.5, Emanuel% (Auto) 8.9, Eos % (Auto) 3.0, Baso [...] significant change since last exam. Reading Location: [id number] Assessment & Plan Assessment/Plan (1) COPD exacerbation: [...] PJ, Tobacco use who presents to the [facility] ED on 12/13/2024 with history of [...] 0.9. #16. 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 Charges/Coding Visit Charges Inpatient E&M: 30092 Init Hosp L3 Procedures Hospitalists Procedures: 26800 Advncd Care Plan 30 Min 12/13/242049 <Electronically signed by Shilpa Contreras MD> Cosigner Signature (if applicable): CC: Dr. Shilpa Contreras MD; Dr. Daija Morton MD~ Signed [facility] Work Phone: History and physical note Author Frankie Galindo [facility] Note Date/Time January 05, 2025 2:02 pm [facility] Medical Records Department [address] [place] [address] H&P Exam - Hospitalist 01/05/25 1336 MR#: [id number] Acct: [id number] Name: PEDRO PABLO SIERRA Rep #:[id number] : 1950 74 From: Frankie Galindo MD PCP: Dr. Lorraine Mena MD Status:A DM IN Location: [facility] [id number]- 1 HPI - General General Date of Admission: 01/05/25 Date of Service: 01/05/25 Chief Complaint: Suspected PEG tomorrow found HPI Narrative PEDRO PABLO SIERRA, is a 74 M with recent diagnosis of acute left MCA CVA discharged to a custodial facility. Patient had a PEG tube placed [...] to a monitored bed for further management [facility] Medical History Acute CVA (cerebrovascular accident) Aphasia [...] 76.7 H, Lymph % (Auto) 14.2 L, Emanuel % (Auto) 7.0, Eos % (Auto) 1.2, [...] IMPRESSION: COPD. No acute findings. Reading Location: [id number] X-Ray 01/05/25 13:02 IMPRESSION: A PEG tube tip is projected in the region of the stomach. Contrast material is identified within the stomach. There is no extravasation of the contrast. 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 [...] 78 Minutes Charges/Coding Visit Charges Inpatient E&M: 08999 Init Hosp L3 01/05/25 1402 <Electronically signed by Frankie Galindo MD> Cosigner Signature (if applicable): CC: Dr. Frankie Galindo MD; Dr. Lorraine Mena MD~ Signed [facility] Work Phone: [facility] Work Phone: [facility] Work Phone: [facility] Work Phone: [phone] Work Phone: [facility] Work Phone[facility] Work Phone: Hospital Discharge instructions Additional Instructions Ice to your rib cage. Support your sore ribs with a pillow. Your chest x-ray did not show any broken ribs sometimes however there are small cracks in the ribs we cannot see on the x-ray. [place] for more severe pain. Otherwise use Tylenol. If you are using the pain medication [place] then do not use Tylenol with it. Follow-up with your doctor as needed. Keep the wounds on your forearms clean. Clean daily with soap and water. Patient apply antibiotic ointment. Watch for any signs of infection if seen follow-up.[facility] Work Phone: Hospital Discharge instructions Additional Instructions Please use the walker and follow-up with your primary care doctor.[facility] Work Phone: Progress note No data available for this section [facility] Reason for referral (narrative)* Outpatient Procedure (Routine) - Closed Specialty Diagnoses / Procedures Referred By Morris t Referred To [facility] Diagnoses COPD with chronic bronchitis (HCC) Procedures OXIMETRY WITH AMBULATION NONINVASIVE EAR/PULSE OXIMETRY MULTIPLE DETER Emilie Jauregui PA-C [address] [address] Referral ID Status Reason Start Date Expiration Date V isits Requested Visits Authorized [id number] Closed Auto-Generate d Referral 11/05/2021 06/18/2022 1 1 * Outpatient Procedure (Routine) - Closed Specialty Diagnoses / Procedures Referred By Contchelo t [facility] Diagnoses COPD with chronic bronchitis (HCC) Procedures LUNG DIFFUSION CAPACITY (DLCO) DIFFUSING CAPACITY Emilie Jauregui PA-C [address] [address] Referral ID Status Reason Start Date Expiration Date V isits Requested Visits Authorized [id number] Closed Auto-Generate d Referral 11/05/2021 06/18/2022 1 1 * Outpatient Procedure (Routine) - Closed Specialty Diagnoses / Procedures Referred By Morris t Referred To [facility] Diagnoses COPD with chronic bronchitis (HCC) Procedures SPIROMETRY BASELINE ONLY SPMTRY W/VC EXPIRATORY BRIAN W/WO MXML VOL VNTJ Emilie Jauregui PA-C [address] [address] Referral ID Status Reason Start Date Expiration Date V isits Requested Visits Authorized [id number] Closed Auto-Generate d Referral 11/05/2021 06/18/[address] [facility] for referral (narrative)* Outpatient Procedure (Routine) - Pending Review Specialty Diagnoses / Procedures Referred By Morris t Referred To Contact [facility] Diagnoses Essential hypertension Chest pain, unspecified type Procedures ECG COMPLETE ECG ROUTINE ECG W/LEAST 12 LDS W/I&R Anjel Braga APRN.CNP [address] [place] [address] [facility] [address] [place] [id number] Referral ID Status Reason Start Date Expiration Date Visits Requested Visits Authorized [id number] Pending Review Auto-Generat ed Referral 01/28/2022 01/28/[address] [facility] for referral (narrative)* Outpatient Procedure (Routine) - Authorized Specialty Diagnoses / Procedures Referred By Contac t Referred To Contact [facility] Diagnoses PVD (peripheral vascular disease) (HCC) Procedures PVR LEG COREY VAS LAB PVR LEG COREY VAS LAB NON-INVASIVE PHYSIOLOGIC STUDY EXTREMITY 3 [place] [address] [place] [address] [address] Referral ID Status Reason Start Date Expiration Date Visits Requested Visits Authorized [id number] Authorized Auto-Generat ed Referral 01/31/2022 01/31/[address] [facility] for referral (narrative)* Outpatient Procedure (Routine) - Authorized Specialty Diagnoses / Procedures Referred By Contac t Referred To Contact [facility] Diagnoses Peripheral arterial disease (HCC) PVD (peripheral vascular disease) (HCC) Procedures PVR LEG COREY VAS LAB NON-INVASIVE PHYSIOLOGIC STUDY EXTREMITY 3 [place] [address] [place] [address] [id number] [place] [address] Referral ID Status Reason Start Date Expiration Date Visits Requested Visits Authorized [id number] Authorized Auto-Generat ed Referral 12/26/2022 12/26/2023 1 1 [facility] Outpatient Procedure (Routine) - Authorized Specialty Diagnoses / Procedures Referred By Contac t Referred To Contact [facility] Diagnoses Peripheral arterial disease (HCC) Procedures PVR LEG COREY VAS LAB NON-INVASIVE PHYSIOLOGIC STUDY EXTREMITY 3 [place] [address] [place] [address] [facility] [address] [address] Referral ID Status Reason Start Date Expiration Date Visits Requested Visits Authorized [id number] Authorized Auto-Generat ed Referral 01/02/2024 01/01/[address] 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 Advance Directive(s) 08/29/2021 6:53 PM Advance Directive(s) 08/22/2021 7:53 PM Advance Directive(s) 04/10/2020 4:06 PM Advance Directive(s) 12/17/2019 10:49 AM Advance Directive(s) 10/24/2019 3:38 PM Advance Directive(s) 10/17/2019 9:43 AM Advance Directive(s) 10/08/2019 7:18 AM Advance Directive(s) 09/04/2019 1:38 PM Advance Directive(s) 02/07/2016 12:11 AM Advance Directive Response Recorded Date/ Time Name of Medical 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 eloina stephens e- ex August 12, 2021 1:39am Name of Medical 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 Joseph Burrell August 18, 2021 11:56pm Advance Directives Yes March 22, 2016 4:03pm Living Will No September 17, 2021 5:48pm 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 Yes September 17 5:48pm Advance Directive Response Recorded Date/ Time Name of Medical 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 eloina stephens e- ex August 12, 2021 1:39am Name of Medical 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 Joseph Burrell August 18, 2021 11:56pm Name of Medical 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 joseph burrell September 17, 2021 5:48pm Advance Directives Yes March 22, 2016 4:03pm Living Will No October 08, 2021 2:20pm 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 No October 08 2:20pm Documents on File Type Date Recorded 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 Advance Directive(s) 08/29/2021 6:53 PM [...] Date/ Time Name of Medical 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 eloina stephens e- ex August 12, 2021 1:39am Name of Medical 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 Joseph Burrell August 18, 2021 11:56pm Name of Medical 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 joseph burrell September 17, 2021 5:48pm Advance Directives Yes March 22, 2016 4:03pm Living Will Yes November 25, 2021 5 :33pm 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 Yes November 25, 2021 5:33pm Advance Directive Response Recorded Date/ Time Name of Medical 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 eloina stephens e- ex August 12, 2021 1:39am Name of Medical 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 Joseph Burrell August 18, 2021 11:56pm Name of Medical 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 joseph burrell September 17, 2021 5:48pm Advance Directives Yes March 22, 2016 4:03pm Living Will Yes November 25, 2021 1 1:06pm 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 No November 25, 2021 11:06pm Advance Directive Response Recorded Date/ Time Name of Medical 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 Joseph Burrell August 18, 2021 11:56pm Name of Medical 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 joseph burrell September 17, 2021 5:48pm Name of Medical 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 MICHELLE RICHMOND November 25, 2021 5:33pm Advance Directives Yes March 22, 2016 4:03pm Living Will Yes November 25, 2021 1 1:06pm 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 No November 25, 2021 11:06pm Advance Directive Response Recorded Date/ Time Name of Medical 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 joseph burrell September 17, 2021 5:48pm Name of Medical 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 MICHELLEADRIANA REEDON November 25, 2021 5:33pm Advance Directives Yes March 22, 2016 4:03pm Living Will Yes November 25, 2021 1 1:06pm 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 No November 25, 2021 11:06pm Advance Directive Response Recorded Date/ Time Name of Medical 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 MICHELLE RICHMOND November 25, 2021 5:33pm Advance Directives Yes March 22, 2016 4:03pm Living Will Yes November 25, 2021 1 1:06pm 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 No November 25, 2021 11:06pm Advance Directive Response Recorded Date/ Time Name of Medical 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 MICHELLE RICHMOND November 25, 2021 5:33pm Name of Medical 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 recalled January 28, 2022 3:14pm Advance Directives Yes March 22, 2016 4:03pm Living Will Yes January 28 3:14pm 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 Yes January 28 022 3:14pm Documents on File Type Date Recorded 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 Advance Directive(s) 10/24/2019 3:38 PM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 Multiple falls UTI (urinary tract infection) Weakness Chronic respiratory failure with hypoxia Chief Complaint FALL ACUTE UTI ACUTE UTI ACUTE UTI ACUTE UTI ACUTE UTI ACUTE UTI ACUTE UTI LABWORK LABWORK LAB WORK LABWORK HALFWAY LABWORK fall, lower extremity FALL WITH PUBIC [...] ACUTE UTI LABWORK LABWORK LAB WORK LABWORK HALFWAY LABWORK fall, lower extremity FALL WITH PUBIC [...] ACUTE UTI LABWORK LABWORK LAB WORK LABWORK HALFWAY LABWORK fall, lower extremity FALL WITH PUBIC [...] ACUTE UTI LABWORK LABWORK LAB WORK LABWORK HALFWAY LABWORK Reason for Visit Acute UTI Compression [...] 9pm LABOWRK October 16, 2024 5:0 0am HALFWAY LAB WORK November 05, 2024 5:0 0am [...] 9pm LABOWRK October 16, 2024 5:0 0am HALFWAY LAB WORK November 05, 2024 5:0 0am [...] 9pm LABOWRK October 16, 2024 5:0 0am HALFWAY LAB WORK November 05, 2024 5:0 0am [...] 9pm LABOWRK October 16, 2024 5:0 0am HALFWAY LAB WORK November 05, 2024 5:0 0am [...] 9pm LABOWRK October 16, 2024 5:0 0am HALFWAY LAB WORK November 05, 2024 5:0 0am HALFWAY LAB WORK December 02, 2024 5: 00am [...] Date LABOWRK October 16, 2024 5:0 0am HALFWAY LAB WORK November 05, 2024 5:0 0am HALFWAY LAB WORK December 02, 2024 5: 00am [...] Date LABOWRK October 16, 2024 5:0 0am HALFWAY LAB WORK November 05, 2024 5:0 0am HALFWAY LAB WORK December 02, 2024 5: 00am [...] Date LABOWRK October 16, 2024 5:0 0am HALFWAY LAB WORK November 05, 2024 5:0 0am HALFWAY LAB WORK December 02, 2024 5: 00am [...] Date LABOWRK October 16, 2024 5:0 0am HALFWAY LAB WORK November 05, 2024 5:0 0am HALFWAY LAB WORK December 02, 2024 5: 00am [...] Date LABOWRK October 16, 2024 5:0 0am HALFWAY LAB WORK November 05, 2024 5:0 0am HALFWAY LAB WORK December 02, 2024 5: 00am [...] Date LABOWRK October 16, 2024 5:0 0am HALFWAY LAB WORK November 05, 2024 5:0 0am HALFWAY LAB WORK December 02, 2024 5: 00am [...] January 23, 2025 10:27am Current use of group home anticoagulation January 23, 2025 10:27am CVA (cerebral vascular accident) January 23, 2025 10:27am Debility January 23, 2025 10: 27am History of atrial fibrillation January 10:27am Seizure disorder January 23, 2025 10: 27am Multiple falls January 23, 2025 10: 27am Chief Complaint Admit Date LABOWRK October 16, 2024 5:0 0am HALFWAY LAB WORK November 05, 2024 5:0 0am HALFWAY LAB WORK December 02, 2024 5: 00am [...] Date LABOWRK October 16, 2024 5:0 0am HALFWAY LAB WORK November 05, 2024 5:0 0am HALFWAY LAB WORK December 02, 2024 5: 00am [...] 2025 10: 27am Chief Complaint Admit Date HALFWAY LAB WORK November 05, 2024 5:0 0am HALFWAY LAB WORK December 02, 2024 5: 00am [...] throat Smoking Procedures CONSULT TO ENT OFFICE/OUTPATIENT [facility] MDM 60 MINUTES Rebekah Luu PA-C [id number] [place] [address] Referral ID Status Reason Start Date Expiration Date Visits Requested Visits Authorized [id number] Authorized PCP Requested Referral 11/21/2023 11/20/2024 1 1 Specialty Diagnoses / Procedures Referred By Morris dixon Referred To Contact Diagnoses COPD with chronic bronchitis (HCC) Rebekah Luu PA-C [address] [place] [address] Referral ID Status Reason Start Date Expiration Date Visits Re quested Visits Authorized [id number] Closed 1 1 Specialty Diagnoses / Procedures Referred By Contac t Referred To Contact Marquita Braga APRN.GUIDE RAIL CLEANER [address] [place] [address] Referral ID Status Reason Start Date Expiration Date V isits Requested Visits Authorized [id number] Authorized 08/29/2022 06/18/2023 1 1 Specialty Diagnoses / Procedures Referred By Contac t Referred To Contact Harriett Albert APRN.ARTIFICIAL BREAST FABRICATOR [address] [place] [address] Referral ID Status Reason Start Date Expiration Date Visits Re quested Visits Authorized [id number] Closed 1 1 Specialty Diagnoses / Procedures Referred By Contac t Referred To Contact Gastroenterology Diagnoses Acute blood loss anemia Angiodysplasia of colon with hemorrhage Procedures CONSULT TO GASTROENTEROLOGY OFFICE/OUTPATIENT [facility] 60-74 MINUTES Harriett Albert, CHARLES.ARTIFICIAL BREAST FABRICATOR [address] [place] [address] Referral ID Status Reason Start Date Expiration Date Visits Requested Visits Authorized [id number] Pending Review PCP Requested Referral 01/14/2022 01/14/2023 1 1 Specialty Diagnoses / Procedures Referred By Contac t Referred To Contact Anjel Braga APRN.GUIDE RAIL CLEANER [address] [place] [address] Referral ID Status Reason Start Date Expiration Date Visits Re quested Visits Authorized [id number] Closed 1 1 Medications Administered Section Administered [...] section and content) DATE CREATED AUTHOR 01/09/2020 [facility] DATE CREATED AUTHOR AUTHOR'S ORGANIZ ATION 04/03/2020 [facility] DATE CREATED AUTHOR AUTHOR'S ORGANIZ ATION 04/11/2020 [facility] DATE CREATED AUTHOR AUTHOR'S ORGANIZ ATION 01/26/2022 [facility] DATE CREATED AUTHOR AUTHOR'S ORGANIZ ATION 07/16/2023 [facility] ([place]) DATE CREATED AUTHOR AUTHOR'S ORGANIZ ATION 03/23/2025 [facility] DATE CREATED AUTHOR AUTHOR'S ORGANIZ ATION 04/13/2025 [facility] DATE CREATED AUTHOR AUTHOR'S ORGANIZ ATION 04/29/[address] [facility] Source Comments (unrecognize d section and content) In the event this informatio n is protected by the Federal Confidentiality of Alcohol and Drug Abuse Patient Records regulations: The Federal rules restrict any use of the information to criminally investigate or prosecute any alcohol or drug abuse patient.[facility] the event this information is protected by the Federal Confidentiality of Alcohol and Drug Abuse Patient Records regulations: The Federal rules restrict any use of the information to criminally investigate or prosecute any alcohol or drug abuse patient.[facility] HospitalIn the event this information is protected by the Federal Confidentiality of Alcohol and Drug Abuse Patient Records regulations: The Federal rules restrict any use of the information to criminally investigate or prosecute any alcohol or drug abuse patient.[facility] HospitalIn the event this information is protected by the Federal Confidentiality of Alcohol and Drug Abuse Patient Records regulations: The Federal rules restrict any use of the information to criminally investigate or prosecute any alcohol or drug abuse patient.[facility] HospitalIn the event this information is protected by the Federal Confidentiality of Alcohol and Drug Abuse Patient Records regulations: The Federal rules restrict any use of the information to criminally investigate or prosecute any alcohol or drug abuse patient.[facility] HospitalIn the event this information is protected by the Federal Confidentiality of Alcohol and Drug Abuse Patient Records regulations: The Federal rules restrict any use of the information to criminally investigate or prosecute any alcohol or drug abuse patient.[facility] HospitalIn the event this information is protected by the Federal Confidentiality of Alcohol and Drug Abuse Patient Records regulations: The Federal rules restrict any use of the information to criminally investigate or prosecute any alcohol or drug abuse patient.[facility] HospitalIn the event this information is protected by the Federal Confidentiality of Alcohol and Drug Abuse Patient Records regulations: The Federal rules restrict any use of the information to criminally investigate or prosecute any alcohol or drug abuse patient.[facility] HospitalIn the event this information is protected by the Federal Confidentiality of Alcohol and Drug Abuse Patient Records regulations: The Federal rules restrict any use of the information to criminally investigate or prosecute any alcohol or drug abuse patient.[facility] HospitalIn the event this information is protected by the Federal Confidentiality of Alcohol and Drug Abuse Patient Records regulations: The Federal rules restrict any use of the information to criminally investigate or prosecute any alcohol or drug abuse patient.[facility] HospitalIn the event this information is protected by the Federal Confidentiality of Alcohol and Drug Abuse Patient Records regulations: The Federal rules restrict any use of the information to criminally investigate or prosecute any alcohol or drug abuse patient.[facility] HospitalIn the event this information is protected by the Federal Confidentiality of Alcohol and Drug Abuse Patient Records regulations: The Federal rules restrict any use of the information to criminally investigate or prosecute any alcohol or drug abuse patient.[facility] HospitalIn the event this information is protected by the Federal Confidentiality of Alcohol and Drug Abuse Patient Records regulations: The Federal rules restrict any use of the information to criminally investigate or prosecute any alcohol or drug abuse patient.[facility] HospitalIn the event this information is protected by the Federal Confidentiality of Alcohol and Drug Abuse Patient Records regulations: The Federal rules restrict any use of the information to criminally investigate or prosecute any alcohol or drug abuse patient.[facility] HospitalIn the event this information is protected by the Federal Confidentiality of Alcohol and Drug Abuse Patient Records regulations: The Federal rules restrict any use of the information to criminally investigate or prosecute any alcohol or drug abuse patient.[facility] HospitalIn the event this information is protected by the Federal Confidentiality of Alcohol and Drug Abuse Patient Records regulations: The Federal rules restrict any use of the information to criminally investigate or prosecute any alcohol or drug abuse patient.[facility] HospitalIn the event this information is protected by the Federal Confidentiality of Alcohol and Drug Abuse Patient Records regulations: The Federal rules restrict any use of the information to criminally investigate or prosecute any alcohol or drug abuse patient.[facility] HospitalIn the event this information is protected by the Federal Confidentiality of Alcohol and Drug Abuse Patient Records regulations: The Federal rules restrict any use of the information to criminally investigate or prosecute any alcohol or drug abuse patient.[facility] HospitalIn the event this information is protected by the Federal Confidentiality of Alcohol and Drug Abuse Patient Records regulations: The Federal rules restrict any use of the information to criminally investigate or prosecute any alcohol or drug abuse patient.[facility] HospitalIn the event this information is protected by the Federal Confidentiality of Alcohol and Drug Abuse Patient Records regulations: The Federal rules restrict any use of the information to criminally investigate or prosecute any alcohol or drug abuse patient.[facility] HospitalIn the event this information is protected by the Federal Confidentiality of Alcohol and Drug Abuse Patient Records regulations: The Federal rules restrict any use of the information to criminally investigate or prosecute any alcohol or drug abuse patient.[facility] HospitalIn the event this information is protected by the Federal Confidentiality of Alcohol and Drug Abuse Patient Records regulations: The Federal rules restrict any use of the information to criminally investigate or prosecute any alcohol or drug abuse patient.[facility] HospitalIn the event this information is protected by the Federal Confidentiality of Alcohol and Drug Abuse Patient Records regulations: The Federal rules restrict any use of the information to criminally investigate or prosecute any alcohol or drug abuse patient.[facility] HospitalIn the event this information is protected by the Federal Confidentiality of Alcohol and Drug Abuse Patient Records regulations: The Federal rules restrict any use of the information to criminally investigate or prosecute any alcohol or drug abuse patient.[facility] HospitalIn the event this information is protected by the Federal Confidentiality of Alcohol and Drug Abuse Patient Records regulations: The Federal rules restrict any use of the information to criminally investigate or prosecute any alcohol or drug abuse patient.[facility] HospitalIn the event this information is protected by the Federal Confidentiality of Alcohol and Drug Abuse Patient Records regulations: The Federal rules restrict any use of the information to criminally investigate or prosecute any alcohol or drug abuse patient.[facility] HospitalIn the event this information is protected by the Federal Confidentiality of Alcohol and Drug Abuse Patient Records regulations: The Federal rules restrict any use of the information to criminally investigate or prosecute any alcohol or drug abuse patient.[facility] HospitalIn the event this information is protected by the Federal Confidentiality of Alcohol and Drug Abuse Patient Records regulations: The Federal rules restrict any use of the information to criminally investigate or prosecute any alcohol or drug abuse patient.[facility] HospitalIn the event this information is protected by the Federal Confidentiality of Alcohol and Drug Abuse Patient Records regulations: The Federal rules restrict any use of the information to criminally investigate or prosecute any alcohol or drug abuse patient.[facility] HospitalIn the event this information is protected by the Federal Confidentiality of Alcohol and Drug Abuse Patient Records regulations: The Federal rules restrict any use of the information to criminally investigate or prosecute any alcohol or drug abuse patient.[facility] HospitalIn the event this information is protected by the Federal Confidentiality of Alcohol and Drug Abuse Patient Records regulations: The Federal rules restrict any use of the information to criminally investigate or prosecute any alcohol or drug abuse patient.[facility] HospitalIn the event this information is protected by the Federal Confidentiality of Alcohol and Drug Abuse Patient Records regulations: The Federal rules restrict any use of the information to criminally investigate or prosecute any alcohol or drug abuse patient.[facility] HospitalIn the event this information is protected by the Federal Confidentiality of Alcohol and Drug Abuse Patient Records regulations: The Federal rules restrict any use of the information to criminally investigate or prosecute any alcohol or drug abuse patient.[facility] HospitalIn the event this information is protected by the Federal Confidentiality of Alcohol and Drug Abuse Patient Records regulations: The Federal rules restrict any use of the information to criminally investigate or prosecute any alcohol or drug abuse patient.[facility] HospitalIn the event this information is protected by the Federal Confidentiality of Alcohol and Drug Abuse Patient Records regulations: The Federal rules restrict any use of the information to criminally investigate or prosecute any alcohol or drug abuse patient.[facility] HospitalIn the event this information is protected by the Federal Confidentiality of Alcohol and Drug Abuse Patient Records regulations: The Federal rules restrict any use of the information to criminally investigate or prosecute any alcohol or drug abuse patient.[facility] HospitalIn the event this information is protected by the Federal Confidentiality of Alcohol and Drug Abuse Patient Records regulations: The Federal rules restrict any use of the information to criminally investigate or prosecute any alcohol or drug abuse patient.[facility] HospitalIn the event this information is protected by the Federal Confidentiality of Alcohol and Drug Abuse Patient Records regulations: The Federal rules restrict any use of the information to criminally investigate or prosecute any alcohol or drug abuse patient.[facility] HospitalIn the event this information is protected by the Federal Confidentiality of Alcohol and Drug Abuse Patient Records regulations: The Federal rules restrict any use of the information to criminally investigate or prosecute any alcohol or drug abuse patient.[facility] HospitalIn the event this information is protected by the Federal Confidentiality of Alcohol and Drug Abuse Patient Records regulations: The Federal rules restrict any use of the information to criminally investigate or prosecute any alcohol or drug abuse patient.[facility] HospitalIn the event this information is protected by the Federal Confidentiality of Alcohol and Drug Abuse Patient Records regulations: The Federal rules restrict any use of the information to criminally investigate or prosecute any alcohol or drug abuse patient.[facility] HospitalIn the event this information is protected by the Federal Confidentiality of Alcohol and Drug Abuse Patient Records regulations: The Federal rules restrict any use of the information to criminally investigate or prosecute any alcohol or drug abuse patient.[facility] HospitalIn the event this information is protected by the Federal Confidentiality of Alcohol and Drug Abuse Patient Records regulations: The Federal rules restrict any use of the information to criminally investigate or prosecute any alcohol or drug abuse patient.[facility] HospitalIn the event this information is protected by the Federal Confidentiality of Alcohol and Drug Abuse Patient Records regulations: The Federal rules restrict any use of the information to criminally investigate or prosecute any alcohol or drug abuse patient.[facility] HospitalIn the event this information is protected by the Federal Confidentiality of Alcohol and Drug Abuse Patient Records regulations: The Federal rules restrict any use of the information to criminally investigate or prosecute any alcohol or drug abuse patient.[facility] HospitalIn the event this information is protected by the Federal Confidentiality of Alcohol and Drug Abuse Patient Records regulations: The Federal rules restrict any use of the information to criminally investigate or prosecute any alcohol or drug abuse patient.[facility] HospitalIn the event this information is protected by the Federal Confidentiality of Alcohol and Drug Abuse Patient Records regulations: The Federal rules restrict any use of the information to criminally investigate or prosecute any alcohol or drug abuse patient.[facility] HospitalIn the event this information is protected by the Federal Confidentiality of Alcohol and Drug Abuse Patient Records regulations: The Federal rules restrict any use of the information to criminally investigate or prosecute any alcohol or drug abuse patient.[facility] HospitalIn the event this information is protected by the Federal Confidentiality of Alcohol and Drug Abuse Patient Records regulations: The Federal rules restrict any use of the information to criminally investigate or prosecute any alcohol or drug abuse patient.[facility] HospitalIn the event this information is protected by the Federal Confidentiality of Alcohol and Drug Abuse Patient Records regulations: The Federal rules restrict any use of the information to criminally investigate or prosecute any alcohol or drug abuse patient.[facility] HospitalIn the event this information is protected by the Federal Confidentiality of Alcohol and Drug Abuse Patient Records regulations: The Federal rules restrict any use of the information to criminally investigate or prosecute any alcohol or drug abuse patient.[facility] HospitalIn the event this information is protected by the Federal Confidentiality of Alcohol and Drug Abuse Patient Records regulations: The Federal rules restrict any use of the information to criminally investigate or prosecute any alcohol or drug abuse patient.[facility] HospitalIn the event this information is protected by the Federal Confidentiality of Alcohol and Drug Abuse Patient Records regulations: The Federal rules restrict any use of the information to criminally investigate or prosecute any alcohol or drug abuse patient.[facility] HospitalIn the event this information is protected by the Federal Confidentiality of Alcohol and Drug Abuse Patient Records regulations: The Federal rules restrict any use of the information to criminally investigate or prosecute any alcohol or drug abuse patient.[facility] HospitalIn the event this information is protected by the Federal Confidentiality of Alcohol and Drug Abuse Patient Records regulations: The Federal rules restrict any use of the information to criminally investigate or prosecute any alcohol or drug abuse patient.[facility] HospitalIn the event this information is protected by the Federal Confidentiality of Alcohol and Drug Abuse Patient Records regulations: The Federal rules restrict any use of the information to criminally investigate or prosecute any alcohol or drug abuse patient.[facility] HospitalIn the event this information is protected by the Federal Confidentiality of Alcohol and Drug Abuse Patient Records regulations: The Federal rules restrict any use of the information to criminally investigate or prosecute any alcohol or drug abuse patient.[facility] HospitalIn the event this information is protected by the Federal Confidentiality of Alcohol and Drug Abuse Patient Records regulations: The Federal rules restrict any use of the information to criminally investigate or prosecute any alcohol or drug abuse patient.[facility] HospitalIn the event this information is protected by the Federal Confidentiality of Alcohol and Drug Abuse Patient Records regulations: The Federal rules restrict any use of the information to criminally investigate or prosecute any alcohol or drug abuse patient.[facility] HospitalIn the event this information is protected by the Federal Confidentiality of Alcohol and Drug Abuse Patient Records regulations: The Federal rules restrict any use of the information to criminally investigate or prosecute any alcohol or drug abuse patient.[facility] HospitalIn the event this information is protected by the Federal Confidentiality of Alcohol and Drug Abuse Patient Records regulations: The Federal rules restrict any use of the information to criminally investigate or prosecute any alcohol or drug abuse patient.[facility] HospitalIn the event this information is protected by the Federal Confidentiality of Alcohol and Drug Abuse Patient Records regulations: The Federal rules restrict any use of the information to criminally investigate or prosecute any alcohol or drug abuse patient.[facility] HospitalIn the event this information is protected by the Federal Confidentiality of Alcohol and Drug Abuse Patient Records regulations: The Federal rules restrict any use of the information to criminally investigate or prosecute any alcohol or drug abuse patient.[facility] HospitalIn the event this information is protected by the Federal Confidentiality of Alcohol and Drug Abuse Patient Records regulations: The Federal rules restrict any use of the information to criminally investigate or prosecute any alcohol or drug abuse patient.[facility] HospitalIn the event this information is protected by the Federal Confidentiality of Alcohol and Drug Abuse Patient Records regulations: The Federal rules restrict any use of the information to criminally investigate or prosecute any alcohol or drug abuse patient.[facility] HospitalIn the event this information is protected by the Federal Confidentiality of Alcohol and Drug Abuse Patient Records regulations: The Federal rules restrict any use of the information to criminally investigate or prosecute any alcohol or drug abuse patient.[facility] HospitalIn the event this information is protected by the Federal Confidentiality of Alcohol and Drug Abuse Patient Records regulations: The Federal rules restrict any use of the information to criminally investigate or prosecute any alcohol or drug abuse patient.[facility] HospitalIn the event this information is protected by the Federal Confidentiality of Alcohol and Drug Abuse Patient Records regulations: The Federal rules restrict any use of the information to criminally investigate or prosecute any alcohol or drug abuse patient.[facility] HospitalIn the event this information is protected by the Federal Confidentiality of Alcohol and Drug Abuse Patient Records regulations: The Federal rules restrict any use of the information to criminally investigate or prosecute any alcohol or drug abuse patient.[facility] HospitalIn the event this information is protected by the Federal Confidentiality of Alcohol and Drug Abuse Patient Records regulations: The Federal rules restrict any use of the information to criminally investigate or prosecute any alcohol or drug abuse patient.[facility] HospitalIn the event this information is protected by the Federal Confidentiality of Alcohol and Drug Abuse Patient Records regulations: The Federal rules restrict any use of the information to criminally investigate or prosecute any alcohol or drug abuse patient.[facility] HospitalIn the event this information is protected by the Federal Confidentiality of Alcohol and Drug Abuse Patient Records regulations: The Federal rules restrict any use of the information to criminally investigate or prosecute any alcohol or drug abuse patient.[facility] HospitalIn the event this information is protected by the Federal Confidentiality of Alcohol and Drug Abuse Patient Records regulations: The Federal rules restrict any use of the information to criminally investigate or prosecute any alcohol or drug abuse patient.[facility] HospitalIn the event this information is protected by the Federal Confidentiality of Alcohol and Drug Abuse Patient Records regulations: The Federal rules restrict any use of the information to criminally investigate or prosecute any alcohol or drug abuse patient.[facility] HospitalIn the event this information is protected by the Federal Confidentiality of Alcohol and Drug Abuse Patient Records regulations: The Federal rules restrict any use of the information to criminally investigate or prosecute any alcohol or drug abuse patient.[facility] HospitalIn the event this information is protected by the Federal Confidentiality of Alcohol and Drug Abuse Patient Records regulations: The Federal rules restrict any use of the information to criminally investigate or prosecute any alcohol or drug abuse patient.[facility] HospitalIn the event this information is protected by the Federal Confidentiality of Alcohol and Drug Abuse Patient Records regulations: The Federal rules restrict any use of the information to criminally investigate or prosecute any alcohol or drug abuse patient.[facility] HospitalIn the event this information is protected by the Federal Confidentiality of Alcohol and Drug Abuse Patient Records regulations: The Federal rules restrict any use of the information to criminally investigate or prosecute any alcohol or drug abuse patient.[facility] HospitalIn the event this information is protected by the Federal Confidentiality of Alcohol and Drug Abuse Patient Records regulations: The Federal rules restrict any use of the information to criminally investigate or prosecute any alcohol or drug abuse patient.[facility] HospitalIn the event this information is protected by the Federal Confidentiality of Alcohol and Drug Abuse Patient Records regulations: The Federal rules restrict any use of the information to criminally investigate or prosecute any alcohol or drug abuse patient.[facility] HospitalIn the event this information is protected by the Federal Confidentiality of Alcohol and Drug Abuse Patient Records regulations: The Federal rules restrict any use of the information to criminally investigate or prosecute any alcohol or drug abuse patient.[facility] HospitalIn the event this information is protected by the Federal Confidentiality of Alcohol and Drug Abuse Patient Records regulations: The Federal rules restrict any use of the information to criminally investigate or prosecute any alcohol or drug abuse patient.[facility] HospitalIn the event this information is protected by the Federal Confidentiality of Alcohol and Drug Abuse Patient Records regulations: The Federal rules restrict any use of the information to criminally investigate or prosecute any alcohol or drug abuse patient.[facility] HospitalIn the event this information is protected by the Federal Confidentiality of Alcohol and Drug Abuse Patient Records regulations: The Federal rules restrict any use of the information to criminally investigate or prosecute any alcohol or drug abuse patient.[facility] HospitalIn the event this information is protected by the Federal Confidentiality of Alcohol and Drug Abuse Patient Records regulations: The Federal rules restrict any use of the information to criminally investigate or prosecute any alcohol or drug abuse patient.[facility] HospitalIn the event this information is protected by the Federal Confidentiality of Alcohol and Drug Abuse Patient Records regulations: The Federal rules restrict any use of the information to criminally investigate or prosecute any alcohol or drug abuse patient.[facility] HospitalIn the event this information is protected by the Federal Confidentiality of Alcohol and Drug Abuse Patient Records regulations: The Federal rules restrict any use of the information to criminally investigate or prosecute any alcohol or drug abuse patient.[facility] HospitalIn the event this information is protected by the Federal Confidentiality of Alcohol and Drug Abuse Patient Records regulations: The Federal rules restrict any use of the information to criminally investigate or prosecute any alcohol or drug abuse patient.[facility] HospitalIn the event this information is protected by the Federal Confidentiality of Alcohol and Drug Abuse Patient Records regulations: The Federal rules restrict any use of the information to criminally investigate or prosecute any alcohol or drug abuse patient.[facility] HospitalIn the event this information is protected by the Federal Confidentiality of Alcohol and Drug Abuse Patient Records regulations: The Federal rules restrict any use of the information to criminally investigate or prosecute any alcohol or drug abuse patient.[facility] HospitalIn the event this information is protected by the Federal Confidentiality of Alcohol and Drug Abuse Patient Records regulations: The Federal rules restrict any use of the information to criminally investigate or prosecute any alcohol or drug abuse patient.[facility] HospitalIn the event this information is protected by the Federal Confidentiality of Alcohol and Drug Abuse Patient Records regulations: The Federal rules restrict any use of the information to criminally investigate or prosecute any alcohol or drug abuse patient.[facility] HospitalIn the event this information is protected by the Federal Confidentiality of Alcohol and Drug Abuse Patient Records regulations: The Federal rules restrict any use of the information to criminally investigate or prosecute any alcohol or drug abuse patient.[facility] HospitalIn the event this information is protected by the Federal Confidentiality of Alcohol and Drug Abuse Patient Records regulations: The Federal rules restrict any use of the information to criminally investigate or prosecute any alcohol or drug abuse patient.[facility] HospitalIn the event this information is protected by the Federal Confidentiality of Alcohol and Drug Abuse Patient Records regulations: The Federal rules restrict any use of the information to criminally investigate or prosecute any alcohol or drug abuse patient.[facility] HospitalIn the event this information is protected by the Federal Confidentiality of Alcohol and Drug Abuse Patient Records regulations: The Federal rules restrict any use of the information to criminally investigate or prosecute any alcohol or drug abuse patient.[facility] HospitalIn the event this information is protected by the Federal Confidentiality of Alcohol and Drug Abuse Patient Records regulations: The Federal rules restrict any use of the information to criminally investigate or prosecute any alcohol or drug abuse patient.[facility] HospitalIn the event this information is protected by the Federal Confidentiality of Alcohol and Drug Abuse Patient Records regulations: The Federal rules restrict any use of the information to criminally investigate or prosecute any alcohol or drug abuse patient.[facility] HospitalIn the event this information is protected by the Federal Confidentiality of Alcohol and Drug Abuse Patient Records regulations: The Federal rules restrict any use of the information to criminally investigate or prosecute any alcohol or drug abuse patient.[facility] HospitalIn the event this information is protected by the Federal Confidentiality of Alcohol and Drug Abuse Patient Records regulations: The Federal rules restrict any use of the information to criminally investigate or prosecute any alcohol or drug abuse patient.[facility] HospitalIn the event this information is protected by the Federal Confidentiality of Alcohol and Drug Abuse Patient Records regulations: The Federal rules restrict any use of the information to criminally investigate or prosecute any alcohol or drug abuse patient.[facility] HospitalIn the event this information is protected by the Federal Confidentiality of Alcohol and Drug Abuse Patient Records regulations: The Federal rules restrict any use of the information to criminally investigate or prosecute any alcohol or drug abuse patient.[facility] HospitalIn the event this information is protected by the Federal Confidentiality of Alcohol and Drug Abuse Patient Records regulations: The Federal rules restrict any use of the information to criminally investigate or prosecute any alcohol or drug abuse patient.[facility] HospitalIn the event this information is protected by the Federal Confidentiality of Alcohol and Drug Abuse Patient Records regulations: The Federal rules restrict any use of the information to criminally investigate or prosecute any alcohol or drug abuse patient.[facility] HospitalIn the event this information is protected by the Federal Confidentiality of Alcohol and Drug Abuse Patient Records regulations: The Federal rules restrict any use of the information to criminally investigate or prosecute any alcohol or drug abuse patient.[facility] HospitalIn the event this information is protected by the Federal Confidentiality of Alcohol and Drug Abuse Patient Records regulations: The Federal rules restrict any use of the information to criminally investigate or prosecute any alcohol or drug abuse patient.[facility] HospitalIn the event this information is protected by the Federal Confidentiality of Alcohol and Drug Abuse Patient Records regulations: The Federal rules restrict any use of the information to criminally investigate or prosecute any alcohol or drug abuse patient.[facility] HospitalIn the event this information is protected by the Federal Confidentiality of Alcohol and Drug Abuse Patient Records regulations: The Federal rules restrict any use of the information to criminally investigate or prosecute any alcohol or drug abuse patient.[facility] HospitalIn the event this information is protected by the Federal Confidentiality of Alcohol and Drug Abuse Patient Records regulations: The Federal rules restrict any use of the information to criminally investigate or prosecute any alcohol or drug abuse patient.[facility] HospitalIn the event this information is protected by the Federal Confidentiality of Alcohol and Drug Abuse Patient Records regulations: The Federal rules restrict any use of the information to criminally investigate or prosecute any alcohol or drug abuse patient.[facility] HospitalIn the event this information is protected by the Federal Confidentiality of Alcohol and Drug Abuse Patient Records regulations: The Federal rules restrict any use of the information to criminally investigate or prosecute any alcohol or drug abuse patient.[facility] HospitalIn the event this information is protected by the Federal Confidentiality of Alcohol and Drug Abuse Patient Records regulations: The Federal rules restrict any use of the information to criminally investigate or prosecute any alcohol or drug abuse patient.[facility] HospitalIn the event this information is protected by the Federal Confidentiality of Alcohol and Drug Abuse Patient Records regulations: The Federal rules restrict any use of the information to criminally investigate or prosecute any alcohol or drug abuse patient.[facility] HospitalIn the event this information is protected by the Federal Confidentiality of Alcohol and Drug Abuse Patient Records regulations: The Federal rules restrict any use of the information to criminally investigate or prosecute any alcohol or drug abuse patient.[facility] HospitalIn the event this information is protected by the Federal Confidentiality of Alcohol and Drug Abuse Patient Records regulations: The Federal rules restrict any use of the information to criminally investigate or prosecute any alcohol or drug abuse patient.[facility] HospitalIn the event this information is protected by the Federal Confidentiality of Alcohol and Drug Abuse Patient Records regulations: The Federal rules restrict any use of the information to criminally investigate or prosecute any alcohol or drug abuse patient.[facility] HospitalIn the event this information is protected by the Federal Confidentiality of Alcohol and Drug Abuse Patient Records regulations: The Federal rules restrict any use of the information to criminally investigate or prosecute any alcohol or drug abuse patient.[facility] HospitalIn the event this information is protected by the Federal Confidentiality of Alcohol and Drug Abuse Patient Records regulations: The Federal rules restrict any use of the information to criminally investigate or prosecute any alcohol or drug abuse patient.[facility] HospitalIn the event this information is protected by the Federal Confidentiality of Alcohol and Drug Abuse Patient Records regulations: The Federal rules restrict any use of the information to criminally investigate or prosecute any alcohol or drug abuse patient.[facility] HospitalIn the event this information is protected by the Federal Confidentiality of Alcohol and Drug Abuse Patient Records regulations: The Federal rules restrict any use of the information to criminally investigate or prosecute any alcohol or drug abuse patient.[facility] HospitalIn the event this information is protected by the Federal Confidentiality of Alcohol and Drug Abuse Patient Records regulations: The Federal rules restrict any use of the information to criminally investigate or prosecute any alcohol or drug abuse patient.[facility] HospitalIn the event this information is protected by the Federal Confidentiality of Alcohol and Drug Abuse Patient Records regulations: The Federal rules restrict any use of the information to criminally investigate or prosecute any alcohol or drug abuse patient.[facility] HospitalIn the event this information is protected by the Federal Confidentiality of Alcohol and Drug Abuse Patient Records regulations: The Federal rules restrict any use of the information to criminally investigate or prosecute any alcohol or drug abuse patient.[facility] HospitalIn the event this information is protected by the Federal Confidentiality of Alcohol and Drug Abuse Patient Records regulations: The Federal rules restrict any use of the information to criminally investigate or prosecute any alcohol or drug abuse patient.[facility] HospitalIn the event this information is protected by the Federal Confidentiality of Alcohol and Drug Abuse Patient Records regulations: The Federal rules restrict any use of the information to criminally investigate or prosecute any alcohol or drug abuse patient.[facility] Reason for Visit (unrecogniz ed section and content) Reason Onset Date Comments Transition Of Care 09/14/[address] [facility] Hospital Discharge 09/13/21 Reason Onset Date Comments Transition Of Care 09/14/2021 TCM Pharmacy- Hospital discharge 09/13/21 Reason Comments Recheck Hosp follow up Specialty Diagnoses / Procedures Referred By Contac t Referred To Contact Internal Medicine / INTERNAL MEDICINE Diagnoses hospital follow up Procedures 4C EST HOSP/ER FU Hans Contreras Mendez [address] [place] [address] Anjel Braga APRN.GUIDE RAIL CLEANER [address] [place] [address] Referral ID Status Reason Start Date Expiration Date V isits Requested Visits Authorized [id number] Closed Financial Clearance Required - OON Payor Patient Cleared INN/SMCP Payor Auth Obtained 09/15/2021 06/18/2022 1 1 Reason Comments Patient Update Reason Comments Medication Problem Plan of Care Reason Comments Nifedipine issue Reason Onset Date Comments Transition Of Care 09/16/2021 [facility] Discharge 09/13/21 Reason Comments FYI-OT plan of care Reason Comments Anticoagulation Reason Comments Orders Reason Comments medication issue Reason Comments [facility] verbal order needed Reason Comments Medication Problem Reason Comments Consult gallbladder, abdomen pain Specialty Diagnoses / Procedures Referred By Contac t Referred To Contact General Surgery / GENERAL SURGERY Diagnoses Acute cholecystitis Abdominal pain Acute cholecystitis, persistent abdominal pain Procedures OFFICE/OUTPATIENT NEW MODERATE MDM 45-59 MINUTES NEW DDI PATIENT Adelaida Farias MD [address] [place] [address] Kaye Ortega MD [address] [facility] [place] [address] Referral ID Status Reason Start Date Expiration Date V isits Requested Visits Authorized [id number] Closed Financial Clearance Required - OON Payor Patient Cleared INN/SMCP Payor Auth Obtained 09/08/2021 06/18/2022 1 1 Reason Comments Patient Question visit from 09/15/21 Reason Comments Patient Question Reason Comments Appointment CONSULT FOR CHOLECYS TECTOMY Reason Comments Appointment Reason Onset Date Comments Transition Of Care 09/21/2021 [facility] Discharge 09/13/21 Reason Comments Work excuse letter Reason Onset Date Comments Transition Of Care 09/29/2021 [facility] Discharge 09/13/21 Reason Onset Date Comments Refill Request 10/04/2021 Reason Comments Hypertension Specialty Diagnoses / Procedures Referred By Contac t Referred To Contact Internal Medicine / INTERNAL MEDICINE Diagnoses 09/13 ER Discharge main campus Broken ribs follow up Procedures 4C EST HOSP/ER FU Daija Morton MD [address] [place] [address] Anjel Braga APRN.LAMIN [address] [place] [address] Referral ID Status Reason Start Date Expiration Date Visits Re quested Visits Authorized [id number] Closed 10/07/2021 06/18/2022 1 1 Reason Comments Coumadin update / [place] Reason Comments Patient Update Orders Reason Comments [...] VOL VNTJ Emilie Jauregui PA-C [address] [place] [address] [place] [address] Referral ID Status Reason Start Date Expiration Date V isits Requested Visits Authorized [id number] Closed Auto-Generate d Referral 11/05/2021 06/18/2022 1 1 Specialty Diagnoses / Procedures Referred By Contac t Referred To Contact [facility] Diagnoses COPD with chronic bronchitis (HCC) Procedures OXIMETRY WITH AMBULATION NONINVASIVE EAR/PULSE OXIMETRY MULTIPLE DETER Emilie Jauregui PA-C [address] [place] [address] [address] Referral ID Status Reason Start Date Expiration Date V isits Requested Visits Authorized [id number] Closed Auto-Generate d Referral 11/05/2021 06/18/2022 1 1 Specialty Diagnoses / Procedures Referred By Contac t Referred To Contact Pulmonary and Critical Care Medicine / PULMONARY MEDICINE Diagnoses pre op clearance for gen surgery Procedures RI EST PULM GENERAL Daija Morton MD [address] [place] [address] Emilie Jauregui PA-C [address] [address] Referral ID Status Reason Start Date Expiration Date Visits Re quested Visits Authorized [id number] Closed 10/21/2021 06/18/2022 1 1 Reason Comments Results Reason Comments Cardiac Clearance surgery to have gall bladder removed Reason Comments UTI Specialty Diagnoses / Procedures Referred By Contac t Referred To Contact Internal Medicine / INTERNAL MEDICINE Diagnoses Essential hypertension UTI Procedures OFFICE/OUTPATIENT ESTABLISHED MOD MDM 30-39 MIN 4C EST Anjel Segura, SENIOR DRUPAL DEVELOPER.GUIDE RAIL CLEANER [address] [place] [address] Referral ID Status Reason Start Date Expiration Date Visits Re quested Visits Authorized [id number] Closed 11/17/2021 06/18/2022 1 1 Reason Onset Date Comments Refill Request 11/18/2021 Reason Onset Date Comments Refill Request 11/19/2021 Reason Comments Medication Request Reason Comments Clinical Update Reason Comments Patient Update Medication Request Reason Comments Appointment 01/14 ED F/U-need ED location to retrieve records Reason Comments ER F/U [facility] Specialty Diagnoses / Procedures Referred By Contac t Referred To Contact Internal Medicine / INTERNAL MEDICINE Diagnoses Follow-up examination hospital f/u Procedures OFFICE/OUTPATIENT ESTABLISHED MOD MDM 30-39 MIN 4C EST HOSP/ER MD Roosevelt Marks Terri, SENIOR DRUPAL DEVELOPER.ARTIFICIAL BREAST FABRICATOR [address] [place] [address] Referral ID Status Reason Start Date Expiration Date Visits Re quested Visits Authorized [id number] Closed 01/14/2022 06/18/2022 1 1 Reason Comments Established Patient follow up anand r Reason Comments Recheck Follow up, Hosp foll ow up Specialty Diagnoses / Procedures Referred By Contac t Referred To Contact Internal Medicine / INTERNAL MEDICINE Diagnoses [facility] ER f/u. 01-25-22. Black stool. Procedures 4C EST HOSP/ER MD mOi Marks Joy, APRN.GUIDE RAIL CLEANER [address] [place] [address] Referral ID Status Reason Start Date Expiration Date Visits Re quested Visits Authorized [id number] Closed 01/28/2022 04/28/2022 1 1 Reason Comments Follow Up Specialty Diagnoses / Procedures Referred By Contac t Referred To Contact Vascular Surgery / VASCULAR SURGERY Diagnoses PVD 1 year f/u with PVR and arterial Duplex [place] [address] [place] [address] [place] [address] [place] [address] Referral ID Status Reason Start Date Expiration Date Visits Re quested Visits Authorized [id number] Closed 01/31/2022 06/18/2022 1 1 Reason Comments Results, Lab Reason Onset Date Comments Refill Request 02/22/2022 Reason Comments Erroneous encounter-disregard Reason Comments Fall Reason Comments SWCC orders needed today Reason Comments admit to [facility] Reason Comments Social Work Services Reason Comments Medication Question Reason Comments Syncope Reason Onset Date Comments Refill Request 08/25/2022 Patient Update 08/25/2022 Reason Comments intermediate follow-up Reason Onset Date Comments Refill Request 08/29/2022 Reason Comments Refill Request [facility] Request Reason Comments patient problem [...] fix this, also fell twice while in [facility] Reason Comments Mental status change Reason Comments No Show Reason Onset Date Comments Refill Request 01/23/2024 Reason Onset Date Comments Refill Request 03/12/2024 Reason Comments UTI Foul odor, confusion Reason Comments Home Health Orders Reason Comments [place] [employer] update Reason Comments Home Care Management Patient Update Reason Comments intermediate discharge Gem guzman Reason Onset Date Comments Refill Request 12/13/2024 Reason Comments Jarett requesting records Reason Onset Date Comments Refill Request 12/16/2024 Reason Onset Date Comments Refill Request 01/17/2025 Care Teams (unrecognized sec tion and content) Canoe Inspector Final Relationship Specialty Start Date End Date Daija Morton MD [address] [place] [address] PCP - General Internal Medicine 03/21/17 Beatriz Correa CNP Referring 09/28/20 Daija Morton MD [address] [place] [address] Home Care Physician Internal Medicine 09/28/20 13, Pharmacist [address] [place] [address] Pharmacist Pharmacy 06/17/21 Lizette Ulloa RN [address] [place] [address] Primary Care Goodwill Ambassador Internal Medicine 09/14/21 10/14/21 Tamika Almaguer [employer] Product Safety Compliance Leader 09/26/17 Canoe Inspector Final Relationship Specialty Start Date End Date Daija Morton MD [address] [place] [address] PCP - General Internal Medicine 03/21/17 Beatriz Correa CNP Referring 09/28/20 Daija Morton MD [address] [place] [address] Home Care Physician Internal Medicine 09/28/20 13, Pharmacist [address] [place] [address] Pharmacist Pharmacy 06/17/21 Lizette Ulloa, RN [address] [place] [address] Primary Care Goodwill Ambassador Internal Medicine 09/14/21 10/14/21 Tamika Almaguer [employer] Product Safety Compliance Leader 09/26/17 Canoe Inspector Final Relationship Specialty Start Date End Date Daija Morton MD [address] [facility] [address] PCP - General Internal Medicine 03/21/17 Beatriz Correa, GUIDE RAIL CLEANER Referring 09/28/20 Daija Morton MD [address] [facility] [address] Home Care Physician Internal Medicine 09/28/20 13, Pharmacist [address] [place] [address] Pharmacist Pharmacy 06/17/21 Lizette Ulloa, RN [address] [place] [address] Primary Care Goodwill Ambassador Internal Medicine 09/14/21 10/14/21 Tamika Almaguer [employer] Product Safety Compliance Leader 09/26/17 Canoe Inspector Final Relationship Specialty Start Date End Date Daija Morton MD [address] [place] [address] PCP - General Internal Medicine 03/21/17 Beatriz Correa, GUIDE RAIL CLEANER Referring 09/28/20 Daija Morton MD [address] [place] [address] Home Care Physician Internal Medicine 09/28/20 13, Pharmacist [address] [place] [address] Pharmacist Pharmacy 06/17/21 Lizette Ulloa, RN [address] [place] [address] Primary Care Goodwill Ambassador Internal Medicine 09/14/21 10/14/21 Tamika Almaguer [employer] Product Safety Compliance Leader 09/26/17 Canoe Inspector Final Relationship Specialty Start Date End Date Daija Morton MD [address] [place] [address] PCP - General Internal Medicine 03/21/17 Beatriz Correa CNP Referring 09/28/20 Daija Morton MD [address] [place] [address] Home Care Physician Internal Medicine 09/28/20 13, Pharmacist [address] [place] [address] Pharmacist Pharmacy 06/17/21 Lizette Ulloa, [address] [place] [address] Primary Care Goodwill Ambassador Internal Medicine 09/14/21 10/14/21 Tamika HARRELL Product Safety Compliance Leader 09/26/17 Canoe Inspector Final Relationship Specialty Start Date End Date Daija Morton MD [address] [place] [address] PCP - General Internal Medicine 03/21/17 Beatriz Correa CNP Referring 09/28/20 Daija Morton MD [address] [place] [address] Home Care Physician Internal Medicine 09/28/20 13, Pharmacist [phone] [place] [address] Pharmacist Pharmacy 06/17/21 Lizette Ulloa, [address] [place] [address] Primary Care Goodwill Ambassador Internal Medicine 09/14/21 10/14/21 Tamika HARRELL Product Safety Compliance Leader 09/26/17 Canoe Inspector Final Relationship Specialty Start Date End Date Daija Morton MD [address] [place] [address] PCP - General Internal Medicine 03/21/17 Beatriz Correa CNP Referring 09/28/20 Daija Morton MD [address] [place] [address] Home Care Physician Internal Medicine 09/28/20 13, Pharmacist [phone] [place] [address] Pharmacist Pharmacy 06/17/21 Lizette Ulloa, RN [address] [place] [address] Primary Care Goodwill Ambassador Internal Medicine 09/14/21 10/14/21 Tamika Almaguer [employer]SP[employer] Product Safety Compliance Leader 09/26/17 Canoe Inspector Final Relationship Specialty Start Date End Date Daija Morton MD [address] [place] [address] PCP - General Internal Medicine 03/21/17 Beatriz Correa, GUIDE RAIL CLEANER Referring 09/28/20 Daija Morton MD [address] [place] [address] Home Care Physician Internal Medicine 09/28/20 13, Pharmacist [address] [place] [address] Pharmacist Pharmacy 06/17/21 Lizette Ulloa, [address] [place] [address] Primary Care Goodwill Ambassador Internal Medicine 09/14/21 10/14/21 Kaye Ortega MD [address] [place] [address] General Surgery 09/21/21 Tamika Almaguer PASSANYI Product Safety Compliance Leader 09/26/17 Canoe Inspector Final Relationship Specialty Start Date End Date Daija Morton MD [address] [place] [address] PCP - General Internal Medicine 03/21/17 Beatriz Correa, GUIDE RAIL CLEANER Referring 09/28/20 Daija Morton MD [address] [place] [address] Home Care Physician Internal Medicine 09/28/20 13, Pharmacist [address] [place] [address] Pharmacist Pharmacy 06/17/21 Lizette Ulloa, [address] [facility] [address] Primary Care Goodwill Ambassador Internal Medicine 09/14/21 10/14/21 Kaye Ortega MD [address] [place] [address] General Surgery 09/21/21 Tamika HARRELL Product Safety Compliance Leader 09/26/17 Canoe Inspector Final Relationship Specialty Start Date End Date Daija Morton MD [address] [place] [address] PCP - General Internal Medicine 03/21/17 Beatriz Correa CNP Referring 09/28/20 Daija Morton MD [address] [place] [address] Home Care Physician Internal Medicine 09/28/20 13, Pharmacist [address] [place] [address] Pharmacist Pharmacy 06/17/21 Lizette Ulloa, [address] [place] [address] Primary Care Goodwill Ambassador Internal Medicine 09/14/21 10/14/21 Kaye Ortega MD [address] [place] [address] General Surgery 09/21/21 Tamika HARRELL Product Safety Compliance Leader 09/26/17 Canoe Inspector Final Relationship Specialty Start Date End Date Daija Morton MD [address] [place] [address] PCP - General Internal Medicine 03/21/17 Beatriz Correa, LAMIN Referring 09/28/20 Daija Morton MD [address] [place] [address] Home Care Physician Internal Medicine 09/28/20 13, Pharmacist [address] [place] [address] Pharmacist Pharmacy 06/17/21 Lizette Ulloa RN [address] [place] [address] Primary Care Goodwill Ambassador Internal Medicine 09/14/21 10/14/21 Kaye Ortega MD [address] [facility] [place] [address] General Surgery 09/21/21 [facility]ika [facility] Product Safety Compliance Leader 09/26/17 Canoe Inspector Final Relationship Specialty Start Date End Date Daija Morton MD [address] [place] [address] PCP - General Internal Medicine 03/21/17 Beatriz Correa, GUIDE RAIL CLEANER Referring 09/28/20 Daija Morton MD [address] [place] [address] Home Care Physician Internal Medicine 09/28/20 13, Pharmacist [address] [place] [address] Pharmacist Pharmacy 06/17/21 Lizette Ulloa RN [address] [place] [address] Primary Care Goodwill Ambassador Internal Medicine 09/14/21 10/14/21 Kaye Ortega MD [address] [facility] [place] [address] General Surgery 09/21/21 Tamika HARRELL Product Safety Compliance Leader 09/26/17 Canoe Inspector Final Relationship Specialty Start Date End Date Daija Morton MD [address] [place] [address] PCP - General Internal Medicine 03/21/17 Beatriz Correa, LAMIN Referring 09/28/20 Daija Morton MD [address] [place] [address] Home Care Physician Internal Medicine 09/28/20 13, Pharmacist [address] [place] [address] Pharmacist Pharmacy 06/17/21 Lizette Ulloa RN [address] [facility] [address] Primary Care Goodwill Ambassador Internal Medicine 09/14/21 10/14/21 Kyae Ortega MD [address] [facility] [place] [address] General Surgery 09/21/21 Tamika [facility] Product Safety Compliance Leader 09/26/17 Canoe Inspector Final Relationship Specialty Start Date End Date Daija Morton MD [address] [place] [address] PCP - General Internal Medicine 03/21/17 Beatriz Correa CNP Referring 09/28/20 Daija Morton MD [address] [place] [address] Home Care Physician Internal Medicine 09/28/20 Fco Franklin, [address] [place] [address] Door Attendant 10/08/20 12/21/20 13, Pharmacist [address] [place] [address] Pharmacist Pharmacy 06/17/21 Lizette Ulloa RN [address] [facility] [address] Primary Care Goodwill Ambassador Internal Medicine 09/14/21 10/14/21 Kaye Ortega MD [address] [place] [address] General Surgery 09/21/21 Tamika Minimary Almaguer [employer] Product Safety Compliance Leader 09/26/17 Canoe Inspector Final Relationship Specialty Start Date End Date Daija Morton MD [address] [facility] [address] PCP - General Internal Medicine 03/21/17 Beatriz Correa CNP Referring 09/28/20 Daija Morton MD [address] [place] [address] Home Care Physician Internal Medicine 09/28/20 13, Pharmacist [address] [place] [address] Pharmacist Pharmacy 06/17/21 Lizette Ulloa RN [address] [place] [address] Primary Care Goodwill Ambassador Internal Medicine 09/14/21 10/14/21 Kaye Ortega MD [address] [place] [address] General Surgery 09/21/21 Tamika Almaguer [employer] Product Safety Compliance Leader 09/26/17 Canoe Inspector Final Relationship Specialty Start Date End Date Daija Morton MD [address] [place] [address] PCP - General Internal Medicine 03/21/17 Beatriz Correa CNP Referring 09/28/20 10/12/21 Daija Morton MD [address] [place] [address] Home Care Physician Internal Medicine 09/28/20 10/12/21 13, Pharmacist [address] [place] [address] Pharmacist Pharmacy 06/17/21 Lizette Ulloa, [address] [place] [address] Primary Care Goodwill Ambassador Internal Medicine 09/14/21 10/14/21 Kaye Ortega MD [address] [place] [address] General Surgery 09/21/21 Ye Coello MD [address] [place], [place] [id number] General Surgery 10/13/21 Emilie Jauregui PA-C [address] [place] [address] Specialty Supervisor Paper Testing Pulmonary and Critical Care Medicine 10/13/21 Ryan May MD [address] [place], [place] [address] Specialty Supervisor Paper Testing Vascular Surgery 10/13/21 Geronimo Medina, DO [address] [address] Market Basket Maker Cardiology 10/13/21 Tamika Almaguer [facility] Product Safety Compliance Leader 09/26/17 Canoe Inspector Final Relationship Specialty Start Date End Date Daija Morton MD [address] [place], [place] [address] PCP - General Internal Medicine 03/21/17 13, Pharmacist [address] [place] [address] Pharmacist Pharmacy 06/17/21 Lizette Ulloa, [address] [place] [address] Primary Care Goodwill Ambassador Internal Medicine 09/14/21 10/14/21 Kaye Ortega MD [address] [place] [address] General Surgery 09/21/21 Ye Coello MD [address] [place], [place] [id number] General Surgery 10/13/21 Emilie Jauregui PA-C [address] [place], [place] [phone] Specialty Supervisor Paper Testing Pulmonary and Critical Care Medicine 10/13/21 Ryan May MD [address] [place] [address] Specialty Supervisor Paper Testing Vascular Surgery 10/13/21 Geronimo Medina DO [address] [address] Market Basket Maker Cardiology 10/13/21 Tamika Almaguer [facility] Product Safety Compliance Leader 09/26/17 Canoe Inspector Final Relationship Specialty Start Date End Date Daija Morton MD [address] [place], [place] [id number] PCP - General Internal Medicine 03/21/17 Beatriz Correa, GUIDE RAIL CLEANER Referring 09/28/20 10/12/21 Daija Morton MD [address] [place], [place] [address] Home Care Physician Internal Medicine 09/28/20 10/12/21 13, Pharmacist [address] [place] [address] Pharmacist Pharmacy 06/17/21 Lizette Ulloa, [address] [place] [address] Primary Care Goodwill Ambassador Internal Medicine 09/14/21 10/14/21 Kaye Ortega MD [address] [place] [address] General Surgery 09/21/21 Ye Coello MD [address] [place], [place] [id number] General Surgery 10/13/21 Emilie Jauregui PA-C [address] [place] [address] Specialty Supervisor Paper Testing Pulmonary and Critical Care Medicine 10/13/21 Ryan May MD [address] [place] [address] Specialty Supervisor Paper Testing Vascular Surgery 10/13/21 Geronimo Medina, [address] [address] Market Basket Maker Cardiology 10/13/21 Tamika Canales [facility] Product Safety Compliance Leader 09/26/17 Canoe Inspector Final Relationship Specialty Start Date End Date Daija Morton MD [address] [place] [address] PCP - General Internal Medicine 03/21/17 13, Pharmacist [address] [place] [address] Pharmacist Pharmacy 06/17/21 Lizette Ulloa, RN [address] [place] [address] Primary Care Goodwill Ambassador Internal Medicine 09/14/21 10/14/21 Kaye Ortega MD [address] [place] [address] General Surgery 09/21/21 Ye Coello MD [address] [place] [address] General Surgery 10/13/21 Emilie Jauregui PA-C [address] [place] [address] Specialty Supervisor Paper Testing Pulmonary and Critical Care Medicine 10/13/21 Ryan May MD [address] [place], [place] [id number] Specialty Supervisor Paper Testing Vascular Surgery 10/13/21 Geronimo Medina DO [address] [address] Market Basket Maker Cardiology 10/13/21 Tamika HARRELL Product Safety Compliance Leader 09/26/17 Canoe Inspector Final Relationship Specialty Start Date End Date Daija Morton MD [address] [place] [address] PCP - General Internal Medicine 03/21/17 13, Pharmacist [address] [place] [address] Pharmacist Pharmacy 06/17/21 Kaye Ortega MD [address] [place] [address] General Surgery 09/21/21 Ye Coello MD [address] [place], [place] [phone] General Surgery 10/13/21 Emilie Jauregui PA-C [address] [place], [place] [address] Specialty Supervisor Paper Testing Pulmonary and Critical Care Medicine 10/13/21 Ryan May MD [address] [place] [address] Specialty Supervisor Paper Testing Vascular Surgery 10/13/21 Geronimo Medina DO [address] [address] Market Basket Maker Cardiology 10/13/21 Tamika HARRELL Product Safety Compliance Leader 09/26/17 Canoe Inspector Final Relationship Specialty Start Date End Date Daija Morton MD [address] [place] [address] PCP - General Internal Medicine 03/21/17 13, Pharmacist [address] [place] [address] Pharmacist Pharmacy 06/17/21 Kaye Ortega MD [address] [place] [address] General Surgery 09/21/21 Ye Coello MD [address] [place], [place] [id number] General Surgery 10/13/21 Emiile Jauregui PA-C [address] [place] [address] Specialty Supervisor Paper Testing Pulmonary and Critical Care Medicine 10/13/21 Ryan May MD [address] [place] [address] Specialty Supervisor Paper Testing Vascular Surgery 10/13/21 Geronimo Medina, [address] [address] Market Basket Maker Cardiology 10/13/21 Tamika Almaguer [facility] Product Safety Compliance Leader 09/26/17 Canoe Inspector Final Relationship Specialty Start Date End Date Daija Morton MD [address] [place] [address] PCP - General Internal Medicine 03/21/17 13, Pharmacist [address] [place] [address] Pharmacist Pharmacy 06/17/21 Kaye Ortega MD [address] [place] [address] General Surgery 09/21/21 Ye Coello MD [address] [place], [place] [phone] General Surgery 10/13/21 Emilie Jauregui PA-C [address] [place] [address] Specialty Supervisor Paper Testing Pulmonary and Critical Care Medicine 10/13/21 Ryan May MD [address] [place] [address] Specialty Supervisor Paper Testing Vascular Surgery 10/13/21 Geronimo Medina, DO [address] [address] Market Basket Maker Cardiology 10/13/21 Tamika Almaguer PASSANYI Product Safety Compliance Leader 09/26/17 Canoe Inspector Final Relationship Specialty Start Date End Date Daija Morton MD [address] [place] [address] PCP - General Internal Medicine 03/21/17 13, Pharmacist [address] [place] [address] Pharmacist Pharmacy 06/17/21 Kaye Ortega MD [address] [place] [phone] General Surgery 09/21/21 Ye Coello MD [address] [place], [place] [id number] General Surgery 10/13/21 Emilie Jauregui PA-C [address] [place], [place] 295931 Specialty Supervisor Paper Testing Pulmonary and Critical Care Medicine 10/13/21 Ryan May MD [address] [place], [place] [id number] Specialty Supervisor Paper Testing Vascular Surgery 10/13/21 Geronimo Medina, DO [address] [address] Market Basket Maker Cardiology 10/13/21 Tamika HARRELL Product Safety Compliance Leader 09/26/17 Canoe Inspector Final Relationship Specialty Start Date End Date Daija Morton MD [address] [place] [address] PCP - General Internal Medicine 03/21/17 13, Pharmacist 43041 [place] [address] Pharmacist Pharmacy 06/17/21 Kaye Ortega MD [address] [place] [phone] General Surgery 09/21/21 Ye Coello MD [address] [place], [place] [id number] General Surgery 10/13/21 Emilie Jauregui PA-C [address] [place] [address] Specialty Supervisor Paper Testing Pulmonary and Critical Care Medicine 10/13/21 Ryan May MD [address] [place] [address] Specialty Supervisor Paper Testing Vascular Surgery 10/13/21 Geronimo Medina, [address] [address] Market Basket Maker Cardiology 10/13/21 [facility]uer [facility] Product Safety Compliance Leader 09/26/17 Canoe Inspector Final Relationship Specialty Start Date End Date Daija Morton MD [address] [place] [address] PCP - General Internal Medicine 03/21/17 13, Pharmacist 39327 [place] [address] Pharmacist Pharmacy 06/17/21 Kaye Ortega MD [address] [place] [address] General Surgery 09/21/21 Ye Coello MD [address] [place] [address] General Surgery 10/13/21 Emilie Jauregui PA-C [address] [place] [address] Specialty Supervisor Paper Testing Pulmonary and Critical Care Medicine 10/13/21 Ryan May MD [address] [place], [place] [phone] Specialty Supervisor Paper Testing Vascular Surgery 10/13/21 Geronimo Median DO [address] [address] Market Basket Maker Cardiology 10/13/21 Tamikadestiny Almaguer [facility] Product Safety Compliance Leader 09/26/17 Canoe Inspector Final Relationship Specialty Start Date End Date Daija Morton MD [address] [place], [place] 158891 PCP - General Internal Medicine 03/21/17 13, Pharmacist 81916 [place] [address] Pharmacist Pharmacy 06/17/21 Kaye Ortega MD [address] [place] [address] General Surgery 09/21/21 Ye Coello MD [address] [place] [address] General Surgery 10/13/21 Emilie Jauregui PA-C [address] [place] [address] Specialty Supervisor Paper Testing Pulmonary and Critical Care Medicine 10/13/21 Ryan May MD [address] [place], [place] [id number] Specialty Supervisor Paper Testing Vascular Surgery 10/13/21 Geronimo Medina DO [address] [address] Market Basket Maker Cardiology 10/13/21 Tamika HARRELL Product Safety Compliance Leader 09/26/17 Canoe Inspector Final Relationship Specialty Start Date End Date Daija Morton MD [address] [place] [address] PCP - General Internal Medicine 03/21/17 13, Pharmacist 91519 [place] [address] Pharmacist Pharmacy 06/17/21 Kaye Ortega MD [address] [place] [address] General Surgery 09/21/21 Ye Coello MD [address] [place], [place] [id number] General Surgery 10/13/21 Emilie Jauregui PA-C [address] [place], [place] 833581 Specialty Supervisor Paper Testing Pulmonary and Critical Care Medicine 10/13/21 Ryan May MD [address] [place] [address] Specialty Supervisor Paper Testing Vascular Surgery 10/13/21 Geronimo Medina DO [address] [address] Market Basket Maker Cardiology 10/13/21 Tamika HARRELL Product Safety Compliance Leader 09/26/17 Canoe Inspector Final Relationship Specialty Start Date End Date Daija Morton MD [address] [place] [address] PCP - General Internal Medicine 03/21/17 13, Pharmacist 12848 [place] [address] Pharmacist Pharmacy 06/17/21 Kaye Ortega MD [address] [place] [address] General Surgery 09/21/21 Ye Coello MD [address] [place], [place] [phone] General Surgery 10/13/21 Emilie Jauregui PA-C [address] [place], [place] 982341 Specialty Supervisor Paper Testing Pulmonary and Critical Care Medicine 10/13/21 Ryan May MD [address] [place], [place] 0774795 Specialty Supervisor Paper Testing Vascular Surgery 10/13/21 Geronimo Medina, [address] [address] Market Basket Maker Cardiology 10/13/21 Tamika Almaguer [facility] Product Safety Compliance Leader 09/26/17 Canoe Inspector Final Relationship Specialty Start Date End Date Daija Morton MD [address] [place] [address] PCP - General Internal Medicine 03/21/17 13, Pharmacist 73686 [place] [address] Pharmacist Pharmacy 06/17/21 Kaye Ortega MD [address] [place] [address] General Surgery 09/21/21 Ye Coello MD [address] [place], [place] [phone] General Surgery 10/13/21 Emilie Jauregui PA-C [address] [place] [address] Specialty Supervisor Paper Testing Pulmonary and Critical Care Medicine 10/13/21 Ryan May MD [address] [facility] [address] Specialty Supervisor Paper Testing Vascular Surgery 10/13/21 Geronimo Medina DO [address] [address] Market Basket Maker Cardiology 10/13/21 Tamika HARRELL Product Safety Compliance Leader 09/26/17 Canoe Inspector Final Relationship Specialty Start Date End Date Daija Morton MD [address] [place] [address] PCP - General Internal Medicine 03/21/17 13, Pharmacist 15504 [place] [address] Pharmacist Pharmacy 06/17/21 Kaye Ortega MD [address] [place] [address] General Surgery 09/21/21 Ye Coello MD [address] [place], [place] [id number] General Surgery 10/13/21 Emilie Jauregui PA-C [address] [place] [address] Specialty Supervisor Paper Testing Pulmonary and Critical Care Medicine 10/13/21 Ryan May MD [address] [facility] [address] Specialty Supervisor Paper Testing Vascular Surgery 10/13/21 Geronimo Medina DO [address] [address] Market Basket Maker Cardiology 10/13/21 Tamika HARRELL Product Safety Compliance Leader 09/26/17 Canoe Inspector Final Relationship Specialty Start Date End Date Daija Morton MD [address] [place] [address] PCP - General Internal Medicine 03/21/17 13, Pharmacist 48327 [place] [address] Pharmacist Pharmacy 06/17/21 Kaye Ortega MD [address] [place] [phone] General Surgery 09/21/21 Ye Coello MD [address] [place], [place] [phone] General Surgery 10/13/21 Emilie Jauregui PANeshaC [address] [place] [address] Specialty Supervisor Paper Testing Pulmonary and Critical Care Medicine 10/13/21 Ryan May MD [address] [place] [address] Specialty Supervisor Paper Testing Vascular Surgery 10/13/21 Geronimo Medina, DO [address] [address] Market Basket Maker Cardiology 10/13/21 Tamika [facility]maguer [facility] Product Safety Compliance Leader 09/26/17 Canoe Inspector Final Relationship Specialty Start Date End Date Daija Morton MD [address] [place] [address] PCP - General Internal Medicine 03/21/17 13, Pharmacist 68188 [place] [address] Pharmacist Pharmacy 06/17/21 Kaye Ortega MD [address] [place] [address] General Surgery 09/21/21 Ye Coello MD [address] [place] [address] General Surgery 10/13/21 Emilie Jauregui PA-C [address] [place] [address] Specialty Supervisor Paper Testing Pulmonary and Critical Care Medicine 10/13/21 Ryan May MD [address] [place], [place] 3537595 Specialty Supervisor Paper Testing Vascular Surgery 10/13/21 Geronimo Medina, [address] [address] Market Basket Maker Cardiology 10/13/21 Tamika Almaguer [facility] Product Safety Compliance Leader 09/26/17 Canoe Inspector Final Relationship Specialty Start Date End Date Daija Morton MD [address] [place], [place] 842421 PCP - General Internal Medicine 03/21/17 13, Pharmacist [address] [place] [address] Pharmacist Pharmacy 06/17/21 Kaye Ortega MD [address] [place] [address] General Surgery 09/21/21 Ye Coello MD [address] [place], [place] [phone] General Surgery 10/13/21 Emilie Jauregui PA-C [address] [place], [place] 371821 Specialty Supervisor Paper Testing Pulmonary and Critical Care Medicine 10/13/21 Ryan May MD [address] [place], [place] 2791695 Specialty Supervisor Paper Testing Vascular Surgery 10/13/21 Geronimo Medina DO [address] [address] Market Basket Maker Cardiology 10/13/21 Tamika Almaguer [facility] Product Safety Compliance Leader 09/26/17 Canoe Inspector Final Relationship Specialty Start Date End Date Daija Morton MD [address] [place] [address] PCP - General Internal Medicine 03/21/17 13, Pharmacist 30785 [place] [address] Pharmacist Pharmacy 06/17/21 Kaye Ortega MD [address] [place] [address] General Surgery 09/21/21 Ye Coello MD [address] [place], [place] [id number] General Surgery 10/13/21 Emilie Jauregui PA-C [address] [place] [address] Specialty Supervisor Paper Testing Pulmonary and Critical Care Medicine 10/13/21 Ryan May MD [address] [place], [place] 3558195 Specialty Supervisor Paper Testing Vascular Surgery 10/13/21 Geronimo Medina, DO [address] [address] Market Basket Maker Cardiology 10/13/21 Tamika Almaguer [employer] Product Safety Compliance Leader 09/26/17 Canoe Inspector Final Relationship Specialty Start Date End Date Daija Morton MD [address] [place] [address] PCP - General Internal Medicine 03/21/17 13, Pharmacist 81986 [place] [address] Pharmacist Pharmacy 06/17/21 Kaye Ortega MD [address] [place] [address] General Surgery 09/21/21 Ye Coello MD [address] [place], [place] [id number] General Surgery 10/13/21 Emilie Jauregui PA-C [address] [place] [address] Specialty Supervisor Paper Testing Pulmonary and Critical Care Medicine 10/13/21 Ryan May MD [address]690 [place] [address] Specialty Supervisor Paper Testing Vascular Surgery 10/13/21 Geronimo Medina DO [address] [address] Market Basket Maker Cardiology 10/13/21 Tamika Almaguer [facility] Product Safety Compliance Leader 09/26/17 Canoe Inspector Final Relationship Specialty Start Date End Date Daija Morton MD [address] [place], [place] 360183 [phone] PCP - General Internal Medicine 03/21/17 13, Pharmacist 72275 [place], [place] 8197411 Pharmacist Pharmacy 06/17/21 Kaye Ortega MD [address] [place] [address] General Surgery 09/21/21 Ye Coello MD [address] [place], [place] [id number] General Surgery 10/13/21 Emilie Jauregui PA-C [address] [place] [address] Specialty Supervisor Paper Testing Pulmonary and Critical Care Medicine 10/13/21 Ryan May MD [address] [facility] [address] Specialty Supervisor Paper Testing Vascular Surgery 10/13/21 Geronimo Medina DO [address] [address] Market Basket Maker Cardiology 10/13/21 Tamika HARRELL Product Safety Compliance Leader 09/26/17 Canoe Inspector Final Relationship Specialty Start Date End Date Daija Morton MD [address] [place] [address] PCP - General Internal Medicine 03/21/17 13, Pharmacist 96762 [place] [address] Pharmacist Pharmacy 06/17/21 Kaye Ortega MD [address] [place] [address] General Surgery 09/21/21 Ye Coello MD [address] [place], [place] [phone] General Surgery 10/13/21 Emilie Jauregui PA-C [address] [place] [address] Specialty Supervisor Paper Testing Pulmonary and Critical Care Medicine 10/13/21 Ryan May MD [address] [place] [address] Specialty Supervisor Paper Testing Vascular Surgery 10/13/21 Geronimo Medina DO [address] [address] Market Basket Maker Cardiology 10/13/21 Tamika HARRELL Product Safety Compliance Leader 09/26/17 Canoe Inspector Final Relationship Specialty Start Date End Date Daija Morton MD [address] [place] [address] PCP - General Internal Medicine 03/21/17 13, Pharmacist 13044 [place] [address] Pharmacist Pharmacy 06/17/21 Kaye Ortega MD [address] [place] [phone] General Surgery 09/21/21 Ye Coello MD [address] [place], [place] [id number] General Surgery 10/13/21 Emilie Jauregui PA-C [address] [place] [address] Specialty Supervisor Paper Testing Pulmonary and Critical Care Medicine 10/13/21 Ryan May MD [address] [place] [address] Specialty Supervisor Paper Testing Vascular Surgery 10/13/21 Geronimo Medina, DO [address] [phone] Market Basket Maker Cardiology 10/13/21 Tamika Almaguer [facility] Product Safety Compliance Leader 09/26/17 Canoe Inspector Final Relationship Specialty Start Date End Date Daija Morton MD [address] [place] [address] PCP - General Internal Medicine 03/21/17 13, Pharmacist 58[address] [place] [address] Pharmacist Pharmacy 06/17/21 Kaye Ortega MD [address] [place] [address] General Surgery 09/21/21 Ye Coello MD [address] [place], [place] [id number] General Surgery 10/13/21 Emilie Jauregui PA-C [address] [place] [address] Specialty Supervisor Paper Testing Pulmonary and Critical Care Medicine 10/13/21 Ryan May MD [address] [place], [place] 1800995 Specialty Supervisor Paper Testing Vascular Surgery 10/13/21 Geronimo Medina, DO [address] [address] Market Basket Maker Cardiology 10/13/21 Tamika [facility]maguer [facility] Product Safety Compliance Leader 09/26/17 Canoe Inspector Final Relationship Specialty Start Date End Date Daija Morton MD [address] [place], [place] 753418 [phone] PCP - General Internal Medicine 03/21/17 13, Pharmacist 70143 [place] [address] Pharmacist Pharmacy 06/17/21 Kaye Ortega MD [address] [place] [address] General Surgery 09/21/21 Ye Coello MD [address] [place] [address] General Surgery 10/13/21 Emilie Jauregui PA-C [address] [place] [address] Specialty Supervisor Paper Testing Pulmonary and Critical Care Medicine 10/13/21 Ryan May MD [address] [place], [place] 7462095 Specialty Supervisor Paper Testing Vascular Surgery 10/13/21 Geronimo Medina, DO [address] [address] Market Basket Maker Cardiology 10/13/21 Tamika Almaguer [facility] Product Safety Compliance Leader 09/26/17 Canoe Inspector Final Relationship Specialty Start Date End Date Daija Morton MD [address] [place] [address] PCP - General Internal Medicine 03/21/17 13, Pharmacist 70559 [place] [address] Pharmacist Pharmacy 06/17/21 Kaye Ortega MD [address] [place] [phone] General Surgery 09/21/21 Ye Coello MD [address] [place], [place] [id number] General Surgery 10/13/21 Emilie Jauregui PA-C [address] [place] [address] Specialty Supervisor Paper Testing Pulmonary and Critical Care Medicine 10/13/21 Ryan May MD [address] [place], [place] 3020695 Specialty Supervisor Paper Testing Vascular Surgery 10/13/21 Geronimo Medina, [address] [address] Market Basket Maker Cardiology 10/13/21 Tamika Almaguer [employer] Product Safety Compliance Leader 09/26/17 Canoe Inspector Final Relationship Specialty Start Date End Date Daija Morton MD [address] [place] [address] PCP - General Internal Medicine 03/21/17 13, Pharmacist 02499 [place] [address] Pharmacist Pharmacy 06/17/21 Kaye Ortega MD [address] [place] [address] General Surgery 09/21/21 Ye Coello MD [address] [place], [place] 943455 General Surgery 10/13/21 Emilie Jauregui PA-C [address] [place] [address] Specialty Supervisor Paper Testing Pulmonary and Critical Care Medicine 10/13/21 Ryan May MD [address]01 [place] [address] Specialty Supervisor Paper Testing Vascular Surgery 10/13/21 Geronimo Medina DO [address] [address] Market Basket Maker Cardiology 10/13/21 Tamika Almaguer [facility] Product Safety Compliance Leader 09/26/17 Canoe Inspector Final Relationship Specialty Start Date End Date Daija Morton MD [address] [place] [address] PCP - General Internal Medicine 03/21/17 13, Pharmacist 5[address]27 [place] [address] Pharmacist Pharmacy 06/17/21 Kaye Ortega MD [address] [place] [address] General Surgery 09/21/21 Ye Coello MD [address] [place], [place] [phone] General Surgery 10/13/21 Emilie Jauregui PA-C [address] [place] [address] Specialty Supervisor Paper Testing Pulmonary and Critical Care Medicine 10/13/21 Ryan May MD 2920 [place] [address] Specialty Supervisor Paper Testing Vascular Surgery 10/13/21 Geronimo Medina DO [address] [address] Market Basket Maker Cardiology 10/13/21 Tamika Almaguer [facility] Product Safety Compliance Leader 09/26/17 Canoe Inspector Final Relationship Specialty Start Date End Date Daija Morton MD [address] [place] [address] PCP - General Internal Medicine 03/21/17 13, Pharmacist [address] [place] [address] Pharmacist Pharmacy 06/17/21 Kaye Ortega MD [address] [place] [address] General Surgery 09/21/21 Ye Coello MD [address] [place] [address] General Surgery 10/13/21 Emilie Jauregui PA-C [address] [place] [address] Specialty Supervisor Paper Testing Pulmonary and Critical Care Medicine 10/13/21 Ryan May MD 7660 [place] [address] Specialty Supervisor Paper Testing Vascular Surgery 10/13/21 Geronimo Medina DO [address] [address] Market Basket Maker Cardiology 10/13/21 Tamika HARRELL Product Safety Compliance Leader 09/26/17 Canoe Inspector Final Relationship Specialty Start Date End Date Daija Morton MD [address] [place] [address] PCP - General Internal Medicine 03/21/17 13, Pharmacist 11280 [place] [address] Pharmacist Pharmacy 06/17/21 Kaye Ortega MD [address] [place] [phone] General Surgery 09/21/21 Ye Coello MD [address] [place], [place] [id number] General Surgery 10/13/21 Emilie Jauregui PAAshtyn [address] [place] [address] Specialty Supervisor Paper Testing Pulmonary and Critical Care Medicine 10/13/21 Ryan May MD [address]00 [place] [address] Specialty Supervisor Paper Testing Vascular Surgery 10/13/21 Geronimo Medina DO [address] [phone] Market Basket Maker Cardiology 10/13/21 Tamika Almaguer [facility] Product Safety Compliance Leader 09/26/17 Canoe Inspector Final Relationship Specialty Start Date End Date Daija Morton MD [address] [place], [place] [id number] [phone] PCP - General Internal Medicine 03/21/17 13, Pharmacist 77708 [place] [address] Pharmacist Pharmacy 06/17/21 Kaye Ortega MD [address] [place] [phone] General Surgery 09/21/21 Ye Coello MD [address] [place], [place] [phone] General Surgery 10/13/21 Emilie Jauregui PA-C [address] [place] [address] Specialty Supervisor Paper Testing Pulmonary and Critical Care Medicine 10/13/21 Ryan May MD [address] [place], [place] 2052995 Specialty Supervisor Paper Testing Vascular Surgery 10/13/21 Geronimo Median, [address] [address] Market Basket Maker Cardiology 10/13/21 Tamika Minick Tripp [facility] Product Safety Compliance Leader 09/26/17 Canoe Inspector Final Relationship Specialty Start Date End Date Daija Morton MD [address] [place] [address] PCP - General Internal Medicine 03/21/17 13, Pharmacist [address]179 [place] [address] Pharmacist Pharmacy 06/17/21 04/12/22 Kaye Ortega MD [address] [place] [address] General Surgery 09/21/21 Ye Coello MD [address] [place] [address] General Surgery 10/13/21 Emilie Jauregui PA-C [address] [place] [address] Specialty Supervisor Paper Testing Pulmonary and Critical Care Medicine 10/13/21 Ryan May MD 6758 [place] [address] Specialty Supervisor Paper Testing Vascular Surgery 10/13/21 Geronimo Medina DO [address] [address] Market Basket Maker Cardiology 10/13/21 Tamika Almaguer [facility] Product Safety Compliance Leader 09/26/17 Team Status: Active Member Role Status [...] Provider Active Андрей Cooley Attending Provider Active Canoe Inspector Final Relationship Specialty Start Date End Date Daija Morton MD [address] [place] [address] PCP - General Internal Medicine 03/21/17 Kaye Ortega MD [address] [place] [address] General Surgery 09/21/21 Ye Coello MD [address] [place] [address] General Surgery 10/13/21 Emilie Jauregui PA-Edilma [address] [place], [place] 149491 Specialty Supervisor Paper Testing Pulmonary and Critical Care Medicine 10/13/21 Ryan May MD [address]00 [place] [address] Specialty Supervisor Paper Testing Vascular Surgery 10/13/21 Geronimo Medina DO [address] [address] Market Basket Maker Cardiology 10/13/21 Tamika Almaguer [facility] Product Safety Compliance Leader 09/26/17 Canoe Inspector Final Relationship Specialty Start Date End Date Daija Morton MD [address] [place] [address] PCP - General Internal Medicine 03/21/17 Kaye Ortega MD [address] [place] [address] General Surgery 09/21/21 Ye Coello MD [address] [place], [place] 117637 [phone] General Surgery 10/13/21 Emilie Jauregui PA-C [address] [place] [address] Specialty Supervisor Paper Testing Pulmonary and Critical Care Medicine 10/13/21 Ryan May MD [address] [place], [place] 6338295 Specialty Supervisor Paper Testing Vascular Surgery 10/13/21 Geronimo Medina, [address] [phone] Market Basket Maker Cardiology 10/13/21 Tamika Almaguer [facility] Product Safety Compliance Leader 09/26/17 Canoe Inspector Final Relationship Specialty Start Date End Date Daija Morton MD [address] [place] [address] PCP - General Internal Medicine 03/21/17 Kaye Ortega MD [address] [place] [address] General Surgery 09/21/21 Ye Coello MD [address] [place], [place] [id number] General Surgery 10/13/21 Emilie Jauregui PA-C [address] [place] [address] Specialty Supervisor Paper Testing Pulmonary and Critical Care Medicine 10/13/21 Ryan May MD [address] [place], [place] 2459395 Specialty Supervisor Paper Testing Vascular Surgery 10/13/21 Geronimo Medina, DO [address] [address] Market Basket Maker Cardiology 10/13/21 Tamika HARRELL Product Safety Compliance Leader 09/26/17 Canoe Inspector Final Relationship Specialty Start Date End Date Daija Morton MD [address] [place] [address] PCP - General Internal Medicine 03/21/17 Kaye Ortega MD [address] [place] [address] General Surgery 09/21/21 Ye Coello MD [address] [place], [place] 315225 General Surgery 10/13/21 Emilie Jauregui PA-C [address] [place] [address] Specialty Supervisor Paper Testing Pulmonary and Critical Care Medicine 10/13/21 Ryan May MD 7[address] [place], [place] 2705195 Specialty Supervisor Paper Testing Vascular Surgery 10/13/21 Geronimo Medina DO [address] [address] Market Basket Maker Cardiology 10/13/21 Tamika HARRELL Product Safety Compliance Leader 09/26/17 Canoe Inspector Final Relationship Specialty Start Date End Date Daija Morton MD [address] [place] [address] PCP - General Internal Medicine 03/21/17 Kaye Ortega MD [address] [place] [address] General Surgery 09/21/21 Ye Coello MD 1587 [place] [address] General Surgery 10/13/21 Emilie Jauregui PA-C [address] [place] [address] Specialty Supervisor Paper Testing Pulmonary and Critical Care Medicine 10/13/21 Ryan May MD [address] [place], [place] 2764195 Specialty Supervisor Paper Testing Vascular Surgery 10/13/21 Geronimo Medina, [address] [phone] Market Basket Maker Cardiology 10/13/21 Tamika Almaguer [facility] Product Safety Compliance Leader 09/26/17 Canoe Inspector Final Relationship Specialty Start Date End Date Daija Morton MD [address] [place] [address] PCP - General Internal Medicine 03/21/17 Kaye Ortega MD [address] [place] [address] General Surgery 09/21/21 Ye Coello MD [address] [place], [place] 255836 [phone] General Surgery 10/13/21 Emilie Jauregui PA-C [address] [place] [address] Specialty Supervisor Paper Testing Pulmonary and Critical Care Medicine 10/13/21 Ryan May MD [address] [place], [place] 6146695 Specialty Supervisor Paper Testing Vascular Surgery 10/13/21 Geronimo Medina DO [address] [address] Market Basket Maker Cardiology 10/13/21 Tamika Almaguer [employer] Product Safety Compliance Leader 09/26/17 Canoe Inspector Final Relationship Specialty Start Date End Date Daija Morton MD [address] [facility] [address] PCP - General Internal Medicine 03/21/17 Kaye Ortega MD [address] [place] [address] General Surgery 09/21/21 Ye Coello MD [address] [place], [place] [id number] General Surgery 10/13/21 Emilie Jauergui PA-C [address] [facility] [place] [address] Specialty Supervisor Paper Testing Pulmonary and Critical Care Medicine 10/13/21 Ryan May MD [address]00 [place] [address] Specialty Supervisor Paper Testing Vascular Surgery 10/13/21 Geronimo Medina, DO [address] [address] Market Basket Maker Cardiology 10/13/21 Tamika [employer] Product Safety Compliance Leader 09/26/17 Canoe Inspector Final Relationship Specialty Start Date End Date Daija Morton MD [address] [place] [address] PCP - General Internal Medicine 03/21/17 Kaye Ortega MD [address] [place] [address] General Surgery 09/21/21 Ye Coello MD [address] [place], [place] [id number] General Surgery 10/13/21 Emilie Jauregui PA-C [address] [place], [place] 907511 Specialty Supervisor Paper Testing Pulmonary and Critical Care Medicine 10/13/21 Ryan May MD [address] [facility] [address] Specialty Supervisor Paper Testing Vascular Surgery 10/13/21 Geronimo Medina DO [address] [address] Market Basket Maker Cardiology 10/13/21 Tamikadestiny [employer] [facility] Product Safety Compliance Leader 09/26/17 Team Status: Inactive Member Role Status Dates Dr. Daija Morton MD Primary Care Provider Active Андрей RAIN Attending Provider Active Team Status: Inactive Member Role Status Dates Dr. Daija Morton MD Primary Care Provider Active Dr. Jaden Jauregui MD Emergency Provider Active Canoe Inspector Final Relationship Specialty Start Date End Date Daija Morton MD [address] [place], [place] [address]161 PCP - General Internal Medicine 03/21/17 Kaye Ortega MD [address] [place] [address] General Surgery 09/21/21 Ye Coello MD [address] [place], [place] [address]295 General Surgery 10/13/21 Emilie Jauregui PA-C [address] [place] [address] Specialty Supervisor Paper Testing Pulmonary and Critical Care Medicine 10/13/21 Ryan May MD [address] [place] [address] Specialty Supervisor Paper Testing Vascular Surgery 10/13/21 Geronimo Medina DO [address] [address] Market Basket Maker Cardiology 10/13/21 Tamika HARRELL Product Safety Compliance Leader 09/26/17 Canoe Inspector Final Relationship Specialty Start Date End Date Daija Morton MD [address] [place], [place] [address]01 PCP - General Internal Medicine 03/21/17 Kaye Ortega MD [address] [place] [address] General Surgery 09/21/21 Ye Coello MD [address] [place] [address] General Surgery 10/13/21 Emilie Jauergui PA-C [address] [place] [address] Specialty Supervisor Paper Testing Pulmonary and Critical Care Medicine 10/13/21 Ryan May MD [address] [place] [address] Specialty Supervisor Paper Testing Vascular Surgery 10/13/21 Geronimo Medina DO [address] [address] Market Basket Maker Cardiology 10/13/21 Tamika HARRELL Product Safety Compliance Leader 09/26/17 Team Status: Inactive Member Role Status Dates Dr. Daija Morton MD Primary Care Provider Active Dr. Jaden Jauregui MD Attending Provider, Emergency Provider Active Team Status: Inactive Member Role Status Dates Dr. Daija Morton MD Primary Care Provider Active Dr. Huber Alvarado MD Emergency Provider Active Canoe Inspector Final Relationship Specialty Start Date End Date Daija Morton MD [address] [place] [address] PCP - General Internal Medicine 03/21/17 Kaye Ortega MD [address] [place] [address] General Surgery 09/21/21 Ye Coello MD [address] [place] [address] General Surgery 10/13/21 Emilie Jauregui PA-C [address] [place] [address] Specialty Supervisor Paper Testing Pulmonary and Critical Care Medicine 10/13/21 Ryan May MD [address] [place] [address] Specialty Supervisor Paper Testing Vascular Surgery 10/13/21 Geronimo Medina DO [address] [address] Market Basket Maker Cardiology 10/13/21 Tamika Almaguer [facility] Product Safety Compliance Leader 09/26/17 Team Status: Inactive Member Role Status Dates Dr. Daija Morton MD Primary Care Provider Active Dr. Huber Alvarado MD Attending Provider, Emergency Provider Active Canoe Inspector Final Relationship Specialty Start Date End Date Daija Morton MD [address] [place] [address] PCP - General Internal Medicine 03/21/17 Kaye Ortgea MD [address] [place] [address] General Surgery 09/21/21 Ye Coello MD [address] [place] [address] General Surgery 10/13/21 Emilie Jauregui PANeshaC [address] [place], [place] [address] Specialty Supervisor Paper Testing Pulmonary and Critical Care Medicine 10/13/21 Ryan May MD [address] [place] [address] Specialty Supervisor Paper Testing Vascular Surgery 10/13/21 Geronimo Medina DO [address] [address] Market Basket Maker Cardiology 10/13/21 Tamika Almaguer [facility] Product Safety Compliance Leader 09/26/17 Team Status: Active Member Role Status [...] MD Admit Provider, Attending Pro vider Active Canoe Inspector Final Relationship Specialty Start Date End Date Daija Morton MD [address] [place] [address] PCP - General Internal Medicine 03/21/17 Kaye Ortega MD [address] [place] [address] General Surgery 09/21/21 Ye Coello MD [address] [place] [address] General Surgery 10/13/21 Emilie Jauregui PA-C [address] [place] [address] Specialty Supervisor Paper Testing Pulmonary and Critical Care Medicine 10/13/21 Ryan May MD [address] [facility] [address] Specialty Supervisor Paper Testing Vascular Surgery 10/13/21 Geronimo Medina DO [address] [address] Market Basket Maker Cardiology 10/13/21 Tamikadestiny [employer] [facility] Product Safety Compliance Leader 09/26/17 Team Status: Active Member Role Status [...] Dr. Elton Moore MD Other Provider Active Canoe Inspector Final Relationship Specialty Start Date End Date Daija Morton MD [address] [place] [address] PCP - General Internal Medicine 03/21/17 Kaye Ortega MD [address] [place] [address] General Surgery 09/21/21 Ye Coello MD [address] [place], [place] [address]305 General Surgery 10/13/21 Emilie Jauregui PA-C [address] [place] [address] Specialty Supervisor Paper Testing Pulmonary and Critical Care Medicine 10/13/21 Ryan May MD [address] [place] [address] Specialty Supervisor Paper Testing Vascular Surgery 10/13/21 Geronimo Medina DO [address] [address] Market Basket Maker Cardiology 10/13/21 Tamika HARRELL Product Safety Compliance Leader 09/26/17 Canoe Inspector Final Relationship Specialty Start Date End Date Daija Morton MD [address] [place] [address] PCP - General Internal Medicine 03/21/17 Kaye Ortega MD [address] [place] [address] General Surgery 09/21/21 Ye Coello MD [address] [place] [address] General Surgery 10/13/21 Emilie Jauregui PA-C [address] [place] [address] Specialty Supervisor Paper Testing Pulmonary and Critical Care Medicine 10/13/21 Ryan May MD [address] [place] [address] Specialty Supervisor Paper Testing Vascular Surgery 10/13/21 Geronimo Medina DO [address] [place] [address] Market Basket Maker Cardiology 10/13/21 Tamika HARRELL Product Safety Compliance Leader 09/26/17 Canoe Inspector Final Relationship Specialty Start Date End Date Daija Morton MD [address] [place] [address] PCP - General Internal Medicine 03/21/17 Kaye Ortega MD [address] [place] [address] General Surgery 09/21/21 Ye Coello MD [address] [place] [address] General Surgery 10/13/21 Emilie Jauregui PA-C [address] [place] [address] Specialty Supervisor Paper Testing Pulmonary and Critical Care Medicine 10/13/21 Ryan May MD [address] [place] [address] Specialty Supervisor Paper Testing Vascular Surgery 10/13/21 Geronimo Medina DO [address] [place] [address] Market Basket Maker Cardiology 10/13/21 Tamika [facility]uer [facility] Product Safety Compliance Leader 09/26/17 Team Status: Inactive Member Role Status [...] Provi ashley, Attending Provider, Referring Provider Active Canoe Inspector Final Relationship Specialty Start Date End Date Daija Morton MD [address] [place] [address] PCP - General Internal Medicine 03/21/17 Kaye Ortega MD [address] [place] [address] General Surgery 09/21/21 Ye Coello MD [address] [place] [address] General Surgery 10/13/21 Emilie Jauregui, PANeshaC [address] [place] [address] Specialty Supervisor Paper Testing Pulmonary and Critical Care Medicine 10/13/21 Ryan May MD [address] [place] [address] Specialty Supervisor Paper Testing Vascular Surgery 10/13/21 Geronimo Medina DO [address] [place] [address] Market Basket Maker Cardiology 10/13/21 Tamika Al[facility] [facility] Product Safety Compliance Leader 09/26/17 Team Status: Active Member Role Status [...] Raul Melchor DO Emergency Provider Active Dr. Анрдей Cooley MD Admit Provider, Other Provider A [...] Dr. Ryan Guerin DO Attending Provider Active Canoe Inspector Final Relationship Specialty Start Date End Date Daija Morton MD [address] [place], [place] [address] PCP - General Internal Medicine 03/21/17 Kaye Ortega MD [address] [place] [address] General Surgery 09/21/21 Ye Coello MD [address] [place], [place] 357675 General Surgery 10/13/21 Emilie Jauregui PA-C [address] [place] [address] Specialty Supervisor Paper Testing Pulmonary and Critical Care Medicine 10/13/21 Ryan May MD [address] [place] [address] Specialty Supervisor Paper Testing Vascular Surgery 10/13/21 Geronimo Medina DO [address] [place] [address] Market Basket Maker Cardiology 10/13/21 Tamika Almaguer [facility] Product Safety Compliance Leader 09/26/17 Canoe Inspector Final Relationship Specialty Start Date End Date Daija Morton MD [address] [place] [address] PCP - General Internal Medicine 03/21/17 Kaye Ortega MD [address] [place] [address] General Surgery 09/21/21 Ye Coello MD [address] [place] [address] General Surgery 10/13/21 Emilie Jauregui PA-C [address] [place], [place] [address]241 Specialty Supervisor Paper Testing Pulmonary and Critical Care Medicine 10/13/21 Ryan May MD [address] [place] [address] Specialty Supervisor Paper Testing Vascular Surgery 10/13/21 Geronimo Medina DO [address] [place] [address] Market Basket Maker Cardiology 10/13/21 Tamika HARRELL Product Safety Compliance Leader 09/26/17 Canoe Inspector Final Relationship Specialty Start Date End Date Daija Morton MD [address] [place] [address] PCP - General Internal Medicine 03/21/17 Kaye Ortega MD [address] [place] [address] General Surgery 09/21/21 Ye Coello MD [address] [place], [place] [address] General Surgery 10/13/21 Emilie Jauregui PA-C [address] [facility] [place] [place] [address] Specialty Supervisor Paper Testing Pulmonary and Critical Care Medicine 10/13/21 Ryan May MD [address] [place] [address] Specialty Supervisor Paper Testing Vascular Surgery 10/13/21 Geronimo Medina DO [address] [place] [address] Market Basket Maker Cardiology 10/13/21 Tamika Almaguer [facility] Product Safety Compliance Leader 09/26/17 Canoe Inspector Final Relationship Specialty Start Date End Date Daija Morton MD [address] [place], [place] [address]31 PCP - General Internal Medicine 03/21/17 Kaey Ortega MD [address] [place] [address] General Surgery 09/21/21 eY Coello MD [address] [place] [address] General Surgery 10/13/21 Emilie Jauregui PA-C [address] [facility] [place] [address] Specialty Supervisor Paper Testing Pulmonary and Critical Care Medicine 10/13/21 Ryan May MD [address] [place] [address] Specialty Supervisor Paper Testing Vascular Surgery 10/13/21 Geronimo Medina DO [address] [place] [address] Market Basket Maker Cardiology 10/13/21 Tamika HARRELL Product Safety Compliance Leader 09/26/17 Canoe Inspector Final Relationship Specialty Start Date End Date Daija Morton MD [address] [place] [address] PCP - General Internal Medicine 03/21/17 Kaye Ortega MD [address] [place] [address] General Surgery 09/21/21 Ye Coello MD [address] [place] [address] General Surgery 10/13/21 Emilie Jauregui PA-C [address] [place] [address] Specialty Supervisor Paper Testing Pulmonary and Critical Care Medicine 10/13/21 Ryan May MD [address] [place] [address] Specialty Supervisor Paper Testing Vascular Surgery 10/13/21 Geronimo Medina DO [address] [place] [address] Market Basket Maker Cardiology 10/13/21 Tamika HARRELL Product Safety Compliance Leader 09/26/17 Canoe Inspector Final Relationship Specialty Start Date End Date Daija Morton MD [address] [place] [address] PCP - General Internal Medicine 03/21/17 Kaye Ortega MD [address] [place] [address] General Surgery 09/21/21 Ye Coello MD [address] [place] [address] General Surgery 10/13/21 Emilie Jauregui PA-C [address] [place] [address] Specialty Supervisor Paper Testing Pulmonary and Critical Care Medicine 10/13/21 Ryan May MD [address] [place] [address] Specialty Supervisor Paper Testing Vascular Surgery 10/13/21 Geronimo Medina DO [address] [place] [address] Market Basket Maker Cardiology 10/13/21 Tamika Almaguer [facility] Product Safety Compliance Leader 09/26/17 Canoe Inspector Final Relationship Specialty Start Date End Date Daija Morton MD [address] [place] [address] PCP - General Internal Medicine 03/21/17 Kaye Ortega MD [address] [place] [address] General Surgery 09/21/21 Ye Coello MD [address] [place] [address] General Surgery 10/13/21 Emilie Jauregui PA-C [address] [facility] [place] [address] Specialty Supervisor Paper Testing Pulmonary and Critical Care Medicine 10/13/21 Ryan May MD [address] [place] [address] Specialty Supervisor Paper Testing Vascular Surgery 10/13/21 Geronimo Medina DO [address] [place] [address] Market Basket Maker Cardiology 10/13/21 Tamika Almaguer [facility] Product Safety Compliance Leader 09/26/17 Canoe Inspector Final Relationship Specialty Start Date End Date Daija Morton MD [address] [place] [address] PCP - General Internal Medicine 03/21/17 Kaye Ortega MD [address] [facility] [place] [address] General Surgery 09/21/21 Ye Coello MD [address] [place] [address] General Surgery 10/13/21 Emilie Jauregui PA-C [address] [facility] [place] [address] Specialty Supervisor Paper Testing Pulmonary and Critical Care Medicine 10/13/21 Ryan May MD [address] [place] [address] Specialty Supervisor Paper Testing Vascular Surgery 10/13/21 Geronimo Medina DO [address] [place] [address] Market Basket Maker Cardiology 10/13/21 Tamika HARRELL Product Safety Compliance Leader 09/26/17 Canoe Inspector Final Relationship Specialty Start Date End Date Daija Morton MD [address] [place], [place] [address]471 PCP - General Internal Medicine 03/21/17 Kaye Ortega MD [address] [place] [address] General Surgery 09/21/21 Ye Coello MD [address] [place], [place] 899955 General Surgery 10/13/21 Emilie Jauregui PANeshaC [address] [place] [address] Specialty Supervisor Paper Testing Pulmonary and Critical Care Medicine 10/13/21 Ryan May MD [address] [place] [address] Specialty Supervisor Paper Testing Vascular Surgery 10/13/21 Geronimo Medina DO [address] [place] [address] Market Basket Maker Cardiology 10/13/21 Tamika HARRELL Product Safety Compliance Leader 09/26/17 Canoe Inspector Final Relationship Specialty Start Date End Date Daija Morton MD [address] [place] [address] PCP - General Internal Medicine 03/21/17 Beatriz Correa GUIDE RAIL CLEANER [address] [facility] [place] [address] Referring 09/28/20 10/12/21 Daija Morton MD [address] [place] [address] Home Care Provider Internal Medicine 09/28/20 10/12/21 Fco Franklin, SEYMOUR [address] [place] [address] Door Attendant 10/08/20 12/21/20 Tamika Almaguer [facility] Product Safety Compliance Leader 09/26/17 Canoe Inspector Final Relationship Specialty Start Date End Date Daija Morton MD [address] [place], [place] 467601 PCP - General Internal Medicine 03/21/17 Kaye Ortega MD [address] [place] [address] General Surgery 09/21/21 Ye Coello MD [address] [place] [address] General Surgery 10/13/21 Emilie Jauregui PA-C [address] [place] [address] Specialty Supervisor Paper Testing Pulmonary and Critical Care Medicine 10/13/21 Ryan May MD [address] [place] [address] Specialty Supervisor Paper Testing Vascular Surgery 10/13/21 Geronimo Medina DO [address] [place] [address] Market Basket Maker Cardiology 10/13/21 Tamika HARRELL Product Safety Compliance Leader 09/26/17 Canoe Inspector Final Relationship Specialty Start Date End Date Daija Morton MD [address] [place], [place] [address]9731 PCP - General Internal Medicine 03/21/17 Kaye Ortega MD [address] [place] [address] General Surgery 09/21/21 Ye Coello MD [address] [place] [address] General Surgery 10/13/21 Emilie Jauregui PA-C [address] [place] [address] Specialty Supervisor Paper Testing Pulmonary and Critical Care Medicine 10/13/21 Ryan May MD [address] [place] [address] Specialty Supervisor Paper Testing Vascular Surgery 10/13/21 Geronimo Medina DO [address] [place] [address] Market Basket Maker Cardiology 10/13/21 Tamika Almaguer [employer] Product Safety Compliance Leader 09/26/17 Canoe Inspector Final Relationship Specialty Start Date End Date Daija Morton MD [address] [place], [place] 385871 PCP - General Internal Medicine 03/21/17 Kaye Ortega MD [address] [place] [address] General Surgery 09/21/21 Ye Coello MD [address] [place], [place] 340725 General Surgery 10/13/21 Emilie Jauregui PA-C [address] [facility] [place] [phone] Specialty Supervisor Paper Testing Pulmonary and Critical Care Medicine 10/13/21 Ryan May MD [address] [place] [address] Specialty Supervisor Paper Testing Vascular Surgery 10/13/21 Geronimo Medina DO [address] [place] [address] Market Basket Maker Cardiology 10/13/21 Tamika Almaguer [facility] Product Safety Compliance Leader 09/26/17 Canoe Inspector Final Relationship Specialty Start Date End Date Daija Morton MD [address] [place], [place] 422381 PCP - General Internal Medicine 03/21/17 Kaye Ortega MD [address] [facility] [place] [address] General Surgery 09/21/21 Ye Coello MD [address] [place] [address] General Surgery 10/13/21 Emilie Jauregui PA-C [address] [facility] [place] [phone] Specialty Supervisor Paper Testing Pulmonary and Critical Care Medicine 10/13/21 Ryan May MD [address] [place] [address] Specialty Supervisor Paper Testing Vascular Surgery 10/13/21 Geronimo Medina DO [address] [place] [address] Market Basket Maker Cardiology 10/13/21 Tamika [facility] Product Safety Compliance Leader 09/26/17 Team Status: Active Member Role Status [...] November 05, 2024 End: November 05, 2024 Canoe Inspector Final Relationship Specialty Start Date End Date Daija Morton MD [address] [place], [place] [address]0021 PCP - General Internal Medicine 03/21/17 Kaye Ortega MD [address] [facility] [place] [address] General Surgery 09/21/21 Ye Coello MD [address] [place] [address] General Surgery 10/13/21 Emilie Jauregui, PA-C [address] [place], [place] 093941 Specialty Supervisor Paper Testing Pulmonary and Critical Care Medicine 10/13/21 Ryan May MD [address] [place], [place] 68632[address] Specialty Supervisor Paper Testing Vascular Surgery 10/13/21 Geronimo Mdeina DO [address] [place] [address] Market Basket Maker Cardiology 10/13/21 Anjel Braga APRN.GUIDE RAIL CLEANER [address] [place], [place] [address] Network Architect Manager Internal Medicine 05/26/24 Tamika Canales [facility] Product Safety Compliance Leader 09/26/17 Canoe Inspector Final Relationship Specialty Start Date End Date Daija Morton MD [address] [place], [place] [address]31 PCP - General Internal Medicine 03/21/17 Kaye Ortega MD [address] [place] [address] General Surgery 09/21/21 Ye Coello MD [address] [place], [place] 933205 General Surgery 10/13/21 Emilie Jauregui PA-C [address] [place], [place] [address]75691 Specialty Supervisor Paper Testing Pulmonary and Critical Care Medicine 10/13/21 Ryan May MD [address] [place], [place] 1743095 Specialty Supervisor Paper Testing Vascular Surgery 10/13/21 Geronimo Medina DO [address] [place] [address] Market Basket Maker Cardiology 10/13/21 Anjel Braga APRN.GUIDE RAIL CLEANER [address] [place], [place] 081491 Network Architect Manager Internal Medicine 05/26/24 Tamika Almaguer [facility] Product Safety Compliance Leader 09/26/17 Canoe Inspector Final Relationship Specialty Start Date End Date Daija Morton MD [address] [place], [place] 288251 PCP - General Internal Medicine 03/21/17 Kaye Ortega MD [address] [place] [address] General Surgery 09/21/21 Ye Coello MD [address] [place], [place] 565226[address] General Surgery 10/13/21 Emilie Jauregui, PA-C [address] [place], [place] [address]15731 Specialty Supervisor Paper Testing Pulmonary and Critical Care Medicine 10/13/21 Ryan May MD [address] [place] [address] Specialty Supervisor Paper Testing Vascular Surgery 10/13/21 Geronimo Medina DO [address] [place] [address] Market Basket Maker Cardiology 10/13/21 Anjel Braga APRN.GUIDE RAIL CLEANER [address] [place] [address] Network Architect Manager Internal Medicine 05/26/24 Tamika Almaguer [facility] Product Safety Compliance Leader 09/26/17 Canoe Inspector Final Relationship Specialty Start Date End Date Daija Morton MD [address] [place], [place] [address]861 PCP - General Internal Medicine 03/21/17 Kaye Ortega MD [address] [place] [address] General Surgery 09/21/21 Ye Coello MD [address] [place], [place] [address]23[address] General Surgery 10/13/21 Emilie Jauregui PA-C [address] [place], [place] 561671 Specialty Supervisor Paper Testing Pulmonary and Critical Care Medicine 10/13/21 Ryan May MD [address] [place] [address] Specialty Supervisor Paper Testing Vascular Surgery 10/13/21 Geronimo Medina DO [address] [place] [address] Market Basket Maker Cardiology 10/13/21 Anjel Braga APRN.GUIDE RAIL CLEANER [address] [place] [address] Network Architect Manager Internal Medicine 05/26/24 Tamika Almaguer [employer] Product Safety Compliance Leader 09/26/17 Canoe Inspector Final Relationship Specialty Start Date End Date Daija Morton MD [address] [place] [address] PCP - General Internal Medicine 03/21/17 Kaye Ortega MD [address] [place] [address] General Surgery 09/21/21 Ye Coello MD [address] [place] [address] General Surgery 10/13/21 Emilie Jauregui PA-C [address] [place], [place] 195471 Specialty Supervisor Paper Testing Pulmonary and Critical Care Medicine 10/13/21 Ryan May MD [address] [place] [address] Specialty Supervisor Paper Testing Vascular Surgery 10/13/21 Geronimo Medina DO [address] [place] [address] Market Basket Maker Cardiology 10/13/21 Anjel Braga APRN.GUIDE RAIL CLEANER [address] [place] [address] Network Architect Manager Internal Medicine 05/26/24 Tamika Almaguer [facility] Product Safety Compliance Leader 09/26/17 Canoe Inspector Final Relationship Specialty Start Date End Date Daija Morton MD [address] [place] [address] PCP - General Internal Medicine 03/21/17 Kaye Ortega MD [address] [place] [address] General Surgery 09/21/21 Ye Coello MD [address] [place] [address] General Surgery 10/13/21 Emilie Jauregui PA-C [address] [place], [place] [address] Specialty Supervisor Paper Testing Pulmonary and Critical Care Medicine 10/13/21 Ryan May MD [address] [facility] [address] Specialty Supervisor Paper Testing Vascular Surgery 10/13/21 Geronimo Medina DO [address] [place] [address] Market Basket Maker Cardiology 10/13/21 Anjel Braga APRN.GUIDE RAIL CLEANER [address] [place], [place] 133[address] Network Architect Manager Internal Medicine 05/26/24 [facility] Product Safety Compliance Leader 09/26/17 Team Status: Active Member Role/Relationship Status [...] Provider Active Start : December 16, 2024 Canoe Inspector Final Relationship Specialty Start Date End Date Daija Morton MD [address] [place], [place] 031751 PCP - General Internal Medicine 03/21/17 Kaye Ortega MD [address] [place] [address] General Surgery 09/21/21 Ye Coello MD [address] [place], [place] 732805 General Surgery 10/13/21 Emilie Jauregui PA-C [address] [place], [place] 236691 Specialty Supervisor Paper Testing Pulmonary and Critical Care Medicine 10/13/21 Ryan May MD [address] [place] [address] Specialty Supervisor Paper Testing Vascular Surgery 10/13/21 Geronimo Medina DO [address] [place] [address] Market Basket Maker Cardiology 10/13/21 Anjel Braga APRN.GUIDE RAIL CLEANER [address] [place], [place] 455441 Network Architect Manager Internal Medicine 05/26/24 Tamika Almageur [employer] Product Safety Compliance Leader 09/26/17 Canoe Inspector Final Relationship Specialty Start Date End Date Daija Morton MD [address] [place] [address] PCP - General Internal Medicine 03/21/17 Kaye Ortega MD [address] [place] [address] General Surgery 09/21/21 Ye Coello MD [address] [place] [address] General Surgery 10/13/21 Emilie Jauregui, PANeshaC [address] [place], [place] 560941 Specialty Supervisor Paper Testing Pulmonary and Critical Care Medicine 10/13/21 Ryan May MD [address] [place] [address] Specialty Supervisor Paper Testing Vascular Surgery 10/13/21 Geronimo Medina DO [address] [place] [address] Market Basket Maker Cardiology 10/13/21 Anjel Braga APRN.GUIDE RAIL CLEANER [address] [place] [address] [facility] Internal Medicine 05/26/24 Tamkia Ally HARRELL Product Safety Compliance Leader 09/26/17 Team Status: Active Member Role/Relationship Status Dates Dr. Daija Morton MD Primary Care Provider Active Start: December 17, 2024 Dr. Seth Pritchard DO Emergency Provider Active Start: December 17, 2024 Dr. Roman Patel DO Admit Provider Active Start: December 17, 2024 Dr. Roman Patel DO Attending Provider Active Start: December 17, 2024 Canoe Inspector Final Relationship Specialty Start Date End Date Daija Morton MD [address] [place] [address] PCP - General Internal Medicine 03/21/17 Kaye Ortega MD [address] [place] [address] General Surgery 09/21/21 Ye Coello MD [address] [place], [place] [id number] General Surgery 10/13/21 Emilie Jauregui PANeshaC [address] [place], [place] [id number] Specialty Supervisor Paper Testing Pulmonary and Critical Care Medicine 10/13/21 Ryan May MD [address] [place] [address] Specialty Supervisor Paper Testing Vascular Surgery 10/13/21 Geronimo Medina DO [address] [place] [address] Market Basket Maker Cardiology 10/13/21 Anjel Braga APRN.GUIDE RAIL CLEANER [address] [place], [place] [phone] Network Architect Manager Internal Medicine 05/26/24 Tamika HARRELL Product Safety Compliance Leader 09/26/17 Team Status: Inactive Member Role/Relationship Status [...] Other Provider Active Start: December 18, 2024 dAdi Art MD Other Provider Active Start: December [...] Active Sta rt: December 21, 2024 Tamika Xaio MD Other Provider Active Start : December [...] Provider Active Start: December 22, 2024 Ricardo Mcucllough MD Other Provider Active Start: 2024 Dr. [...] Provider Active Start: December 23, 2024 Dr. oRman Patel DO Admit Provider Active Start: December [...] MD Other Provider Active Start: 2024 Angelo iWley MD Other Provider Active Start: December 26, 2024 Neelam Almendarez MD Other Provider Active Start: December 26, 2024 Dr. Shilpa Contreras MD Attending Provider Active Start: December 26, 2024 Dr. Shilpa Contreras MD Other Provider Active St art: December 26, 2024 Dr. Lisha Talamantes DO Other Provider Active Start : December 26, 2024 Canoe Inspector Final Relationship Specialty Start Date End Date Daija Morton MD [address] [place], [place] [id number] PCP - General Internal Medicine 03/21/17 Kaye Ortega MD [address] [place] [id number] General Surgery 09/21/21 Ye Coello MD [address] [place] [address] General Surgery 10/13/21 Emilie Jauregui, PA-C [address] [place] [address] Specialty Supervisor Paper Testing Pulmonary and Critical Care Medicine 10/13/21 Ryan May MD [address] [place] [address] Specialty Supervisor Paper Testing Vascular Surgery 10/13/21 Geronimo Medina DO [address] [place] [address] Market Basket Maker Cardiology 10/13/21 Anjel Braga APRN.GUIDE RAIL CLEANER [address] [place], [place] [phone] Network Architect Manager Internal Medicine 05/26/24 Tamika Almaguer [facility] Product Safety Compliance Leader 09/26/17 Team Status: Active Member Role/Relationship Status [...] Active Start: December 02, 2024 Dr. Carla RANI MD Attending Provider Active Start: December 02, [...] Active Start : December 22, 2024 Dr. Rneé Reno MD Other Provider Active Sta rt: [...] Status: Inactive Member Role/Relationship Status Dates Dr. Foc Monroy MD Emergency Provider Active Sta rt: [...] Provider Active S tart: January 08, 2025 Canoe Inspector Final Relationship Specialty Start Date End Date Daija Morton MD [address] [place] [address] PCP - General Internal Medicine 03/21/17 Kaye Ortega MD [address] [place] [address] General Surgery 09/21/21 Ye Coello MD [address] [place] [address] General Surgery 10/13/21 Emilie Jauregui, PA-C [address] [place], [place] [address] Specialty Supervisor Paper Testing Pulmonary and Critical Care Medicine 10/13/21 Ryan May MD [address] [place] [address] Specialty Supervisor Paper Testing Vascular Surgery 10/13/21 Geronimo Medina DO [address] [place] [address] Market Basket Maker Cardiology 10/13/21 Anjel Braga APRN.GUIDE RAIL CLEANER [address] [place], [place] [address] Network Architect Manager Internal Medicine 05/26/24 Tamika Almaguer [facility] Product Safety Compliance Leader 09/26/17 Team Status: Active Member Role/Relationship Status [...] Star t: January 08, 2025 Dr. Frankie Gailndo MD Other Provider Active Star t: January [...] End: January 09, 2025 Josefa Doss NP, MACHINE PRINTER HOSE-C Attending Provider Active Start: January 09, 2025 [...] Team Status: Inactive Member Role/Relationship Status Dates YAREIL Lorenzo Attending Provider Active Star t: January [...] 2025 End: January 09, 2025 Josefa Doss MACHINE PRINTER HOSE, MACHINE PRINTER HOSE-C Attending Provider Active Start: January 09, 2025 [...] 2025 End: January 23, 2025 Hannah Busch MACHINE PRINTER HOSE-C Attending Provider Active S tart: January 23, [...] End: December 27, 2024 Josefa Doss NP MACHINE PRINTER HOSE-C Attending Provider Active Start: December 27, 2024 [...] 2025 End: January 09, 2025 Josefa Doss MACHINE PRINTER HOSE, MACHINE PRINTER HOSE-C Attending Provider Active Start: January 09, 2025 [...] Active Start: December 18, 2024 Dr. Roman aPtel DO Admit Provider Active Start: December 18, [...] Active Start : December 24, 2024 Dr. Hnas Rosales MD Other Provider Active St art: [...] MD Other Provider Active Start: 2024 Angelo iWley MD Other Provider Active Start: December 24, [...] St art: December 24, 2024 Dr. Lisha Tlaamantes DO Other Provider Active Start : December [...] Provider Active Start: December 25, 2024 Dr. hSilpa Contreras MD Other Provider Active St art: [...] 2024 End: December 27, 2024 Josefa Doss MACHINE PRINTER HOSE, MACHINE PRINTER HOSE-C Attending Provider Active Start: December 27, 2024 [...] 2025 End: February 04, 2025 Josefa Doss MACHINE PRINTER HOSE, MACHINE PRINTER HOSE-C Attending Provider Active Start: February 04, 2025 [...] BE BASED ON THE PRIMARY CLINICAL RECORDS. [facility] [employer] [facility]. provides no warranty or guarantee of the accuracy or completeness of information in this document.
--- NOTE | 2025-05-18 11:01 | EKG12_ITS ---
Test Reason : FALL Blood Pressure : */* mmHG Vent. Rate : 76 BPM Atrial Rate : 76 BPM P-R Int : 180 ms QRS Dur : 84 ms QT Int : 364 ms P-R-T Axes : 70 61 86 degrees QTcB Int : 409 ms Normal sinus rhythm Normal ECG Confirmed by Juan Downey ([id number]), mapping editor RAE NATH ([id number]) on 05/19/2025 8:24:57 AM Referred By: Confirmed By: Juan Downey
--- NOTE | 2025-05-18 11:01 | CT_ITS ---
PROCEDURE: SPINE CERVICAL WITHOUT CONTRAS 05/18/2025 REASON FOR EXAM: TRAUMA TECHNIQUE: Procedure Code: CTSPC Modality: CT Procedure: SPINE CERVICAL WITHOUT CONTRAS Coronal and Sagittal reconstruction series were provided. One or more dose reduction techniques were used (e.g., Automated exposure control, adjustment of the mA and/or kV according to patient size, use of iterative reconstruction technique. RADIATION DOSE SUMMARY: CTDlvol: 44.99 mGy DLP: 1124.08 mGycm COMPARISON: March 14, 2025 FINDINGS: There is dextroconvex curvature of the cervical spine. Multilevel degenerative disc disease and facet arthropathy is noted. There is no definite acute fracture or subluxation. There is a sclerotic lesion in T4 which is of doubtful significance. The paravertebral soft tissues are grossly unremarkable. Atherosclerotic carotid calcifications are noted bilaterally. The thyroid gland is unremarkable. Emphysematous changes are noted in the lung apices. There is scarring present as well. CT/Spine Cervical without Contras IMPRESSION: Degenerative disc disease and alignment abnormalities as above. There is no ac abraham fracture or subluxation visualized. Reading [facility]
--- NOTE | 2025-05-18 11:01 | CT_ITS ---
PROCEDURE: BRAIN/HEAD WITHOUT CONTRAST 05/18/2025 REASON FOR EXAM: TRAUMA TECHNIQUE: Procedure Code: CTBR Modality: CT Procedure: BRAIN/HEAD WITHOUT CONTRAST Coronal and Sagittal reconstruction series were provided. One or more dose reduction techniques were used (e.g., Automated exposure control, adjustment of the mA and/or kV according to patient size, use of iterative reconstruction technique. RADIATION DOSE SUMMARY: Not provided COMPARISON: March 14, 2025 FINDINGS: Encephalomalacia is again noted in the left frontal region. Periventricular small-vessel ischemic change is again noted. There is no acute intracranial hemorrhage or mass effect. Intracranial vascular calcifications are present. The orbits are grossly unremarkable. The paranasal sinuses are clear aside from secretions in the sphenoid sinus region. The mastoid air cells are grossly clear. The calvarium is intact. CT/Brain/Head without Contrast IMPRESSION: No definite acute intracranial injury. Incidental findings as above. Reading Location[facility]
--- NOTE | 2025-05-18 11:01 | RAD_ITS ---
PROCEDURE: PELVIS 1 OR 2 VIEWS 05/18/2025 REASON FOR EXAM: FALL TECHNIQUE: Procedure Code: RADPEL Modality: DX Procedure: PELVIS 1 OR 2 VIEWS COMPARISON: Pelvis, 03/14/2025. FINDINGS: The bony pelvis is intact. There is a sclerotic focus projected over the right sacral ala of indeterminate etiology. There are endoluminal stents in the distal abdominal aorta, both common iliac arteries and both external iliac arteries. There are vascular clips in the left inguinal region. There are healed fractures of the right superior and inferior pubic rami. The SI joints and hips are unremarkable. There is no significant abnormality of the visualized lumbar spine. RAD/Pelvis 1 or 2 Views IMPRESSION: No acute abnormality identified. Other findings as noted. Reading Location: [id number]
--- NOTE | 2025-05-18 11:03 | ED.RN ---
spoke with nurse Zhao at [facility] for report. unsure if pt normally wears oxygen. reports mainly nonverbal since stroke.
--- NOTE | 2025-05-18 11:04 | EDS_ITS ---
HPI History of Present Illness Chief Complaint: Fall Informant: EMS and SNF Limited: other (Expressive aphasia) Narrative Narrative: Patient 74-year-old male with history of proximal atrial fibrillation (on Eliquis) prior stroke with significant deficits including PEG tube, seizures, COPD and chronic respiratory failure on 2 L nasal cannula, GERD, BPH and recent admission to the hospital for acute on chronic respiratory failure due to right sided pneumonia as well as ESBL E. coli UTI. He is presenting from nursing facility ([facility]) for report of fall. Patient reportedly was found on the ground. Poor there is no report as the nurse on today had not met him before. Chart review shows that patient was discharged yesterday after a 5-day admission. Was discharged on his baseline of 2 L and had additional 2 days of Levaquin to complete. Did receive 5 days of Zosyn for his UTI. [facility] Medical History History of ESBL E. 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 History of atrial fibrillation Obstructive sleep apnea Seizure disorder Lupus anticoagulant disorder Bronchospasm, acute Aspiration into respiratory tract Acute and chronic respiratory failure with hypoxia Hypertension Dyspnea Acute CVA (cerebrovascular accident) Hypertension Weakness Failure to thrive Compression fx, lumbar spine Hypertension Falls Hypertension Closed fracture of right superior pubic ramus Multiple falls Compression fracture of thoracic vertebra Iron deficiency anemia Chronic respiratory failure with hypoxia Osteoporosis Lumbar compression fracture Compression fracture Hyperlipidemia Asthma Peripheral arterial occlusive disease Chronic obstructive pulmonary disease Coronary artery disease BPH (benign prostatic hyperplasia) Ulcerative colitis Peripheral vascular disease Anxiety COPD (chronic obstructive pulmonary disease) with emphysema Closed fracture of right inferior pubic ramus Acute UTI COPD (chronic obstructive pulmonary disease) UTI (urinary tract infection) Depression Diabetes Kidney stones Chronic pain Pancreatitis On home oxygen therapy Irregular heart beat Atrial fibrillation Stroke/cerebrovascular accident Smoker Falls frequently Seizures Sleep apnea COPD (chronic obstructive pulmonary disease) Asthma High cholesterol Tobacco abuse Home Medications ?Medication ?Instructions ?Recorded ?Last Taken ?Type acetaminophen 325 mg tablet 650 mg (2 x 325 mg) feedin g tube 12/24/24 Unknown Rx Q6H PRN PRN Pain 1-10 Or Fever>100.7 #0 tabs amlodipine 10 mg tablet 10 mg G-tube DAILY.RT bp #0 tabs 12/24/24 Unknown Rx carbamazepine 100 mg/5 mL oral 200 mg (10 mL) G-tube 4 X/DAY #0 mL 12/24/24 Unknown Rx suspension cholecalciferol (vitamin D3) 50 50 mcg feeding tube DA KATHERINE 12/24/24 01/05/25 Rx mcg (2,000 unit) tablet SUPPLEMENT 30 days #30 tabs clonidine 0.2 mg/24 hr weekly 0.2 mg transdermal Q7D b lood 12/24/24 05/03/25 Rx transdermal patch pressure #0 ea ergocalciferol (vitamin D2) 1,250 1,250 mcg feeding tu be Q7D 12/24/24 12/13/24 08:58 Rx mcg (50,000 unit) capsule (Vitamin SUPPLEMENT #0 caps D2) ipratropium 0.5 mg-albuterol 3 mg 3 ml inhalation .q6h wa wheezes #0 12/24/24 Unknown Rx (2.5 mg base)/3 mL nebulization mL soln losartan 100 mg tablet 100 mg feeding tube DAILY Bl ood 12/24/24 12/13/24 08:58 Rx Held on 05/17/25. pressure 30 days #30 tabs Instructions: Resume on 05/20/25. mirtazapine 15 mg tablet 15 mg feeding tube QHS anti 12/24/24 12/12/24 20:59 Rx depressant 30 days #30 tabs sertraline 100 mg tablet 100 mg feeding tube DAILY Unknown Rx DEPRESSION 30 days #30 tabs thiamine HCl (vitamin B1) 100 mg 100 mg G-tube BREAKFA ST supplement 12/24/24 Unknown Rx tablet #0 tabs hydralazine 25 mg tablet 50 mg G-tube 3XD blood press ure 01/03/25 Unknown History atorvastatin 40 mg tablet 40 mg G-tube QHS hld #0 tabs 01/08/25 Unknown Rx lansoprazole 30 mg capsule,delayed 30 mg feeding tube BID gerd #1 cap 01/08/25 Unknown Rx release (Prevacid) apixaban 5 mg tablet (Eliquis) 2.5 mg G-tube BID blood thinner 05/03/25 Unknown History albuterol sulfate 2.5 mg/3 mL 2.5 mg (3 mL) inhalation Q2H PRN 05/08/25 Unknown Rx (0.083 %) solution for nebulization PRN Dyspnea, wheez ing #0 mL menthol 0.44 %-zinc oxide 20.6 % 1 applic topical 4X/D AY skin 05/08/25 Unknown Rx topical ointment (Calmoseptine) irritation #0 grams bisacodyl 10 mg rectal suppository 10 mg HI PRN bowel movement 05/12/25 Unknown History divalproex 125 mg tablet,delayed 125 mg PO BID seizure 05/12/25 Unknown History release (Depakote) glucagon 1 mg solution for 1 mg IM Q20M PRN hypoglycem ia 05/12/25 Unknown History injection (Glucagon Emergency Kit) guaifenesin 100 mg/5 mL oral 200 mg PO Q4H PRN congest ion/COUGH 05/12/25 Unknown History liquid (Adult Wal-Tussin) magnesium hydroxide 400 mg/5 mL 30 ml PO DAILY bowel m ovement 05/12/25 Unknown History oral suspension (Gentle Laxative (magnesium hydroxide)) metoprolol tartrate 50 mg tablet 50 mg feeding tube BI D heart 05/12/25 Unknown History tamsulosin 0.4 mg capsule 0.4 mg PO QHS bph 05/12/25 U nknown History lactose-reduced food with fiber 300 ml G-tube 5X/DAY # 0 mL 05/17/25 Unknown Rx 0.06 gram-1.5 kcal/mL oral liquid (Jevity 1.5 Alex) levofloxacin 750 mg tablet 750 mg PO DAILY 2 days #2 t abs 05/17/25 Unknown Rx prednisone 20 mg tablet See Taper PO BREAKFAST #32 t abs 05/17/25 Unknown Rx Allergy/AdvReac Type Severity Reaction Status Date / Time No Known Allergies Allergy Verified 05/18/25 10:31 Family History Mother Heart disease CVA (cerebral vascular accident) Hypertension Father Heart disease CVA (cerebral vascular accident) Hypertension Surgical History S/P arterial stent History of appendectomy Social History household members: caregiver housing: [facility] 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 Smoking Status: Light Smoker (<10/day) alcohol intake: former details: Former alcoholic quit several years ago substance use type: does not use caffeine: Yes Type: coffee Number of servings: 3 ROS ROS ED Review of Systems ROS Unobtainable: due to mental status EXAM Physical Exam Const Vital Signs: 05/18/25 10:31 05/18/25 10:35 05/18/25 11:42 Temperature 97.8 F Temperature Source Oral Pulse Rate 90 74 Respiratory Rate 18 22 H Respiratory Effort Normal Non-Labored Respiratory Depth Normal Respiratory Pattern Normal Blood Pressure 163/82 H 185/95 H Blood Pressure Mean 109 125 Pulse Ox 98 99 Oxygen Delivery Method Nasal Cannula Nasal Cannula Oxygen Flow Rate (L/min) 2 2 05/18/25 12:16 05/18/25 12:50 05/18/25 13:06 Temperature 97.9 F Temperature Source Oral Pulse Rate 77 Respiratory Rate 18 Respiratory Effort Respiratory Depth Respiratory Pattern Blood Pressure 180/77 H Blood Pressure Mean 111 Pulse Ox 98 99 97 Oxygen Delivery Method Nasal Cannula Nasal Cannula Nasal Cannula Oxygen Flow Rate (L/min) 2 2 2 Constitutional Narrative: Chronically ill-appearing HEENT Reports moist mucous membranes Eyes Eyes Narrative: Abnormal right pupil, normal appearing left pupil Neck supple General: Negative for tenderness Chest Wall inspection of chest normal Resp normal respiratory effort Resp Narrative: Coarse breath sounds with some scattered wheezing present Cardio regular rate and regular rhythm GI normal to inspection, nondistended, normoactive bowel sounds and non-tender Extremity General Extremety ED: Negative for edema General Extremity: Negative for edema Neuro Neuro Narrative: Expressive aphasia?consistent with prior stroke. Only answers yes but it is not appropriate some of the time. Generalized weakness more pronounced on the right Sensorium / Orientation: alert Motor Exam: general weakness Psych Mood & Affect: anxious Skin no rashes or lesions noted and no wounds MDM MDM MDM Narrative Medical decision making narrative: Patient evaluated for fall at nursing facility. It was unwitnessed. Patient was hypoxic for EMS however patient was not wearing oxygen and he required at least 2 L of oxygen at baseline. In the ER patient is 90% on 2 L nasal cannula. Patient's vital signs significant for hypertension but otherwise stable. He is not appear to be in any extremis. Given that he is anticoagulated and had unwitnessed fall with concern for head injury, will obtain CT of the brain looking for signs of cranial trauma. CT of the neck obtained looking for trauma. Infectious and respiratory workup also obtained given his baseline mental status and looking for signs of any worsening metabolic or infectious process that could have led him to fall. He is not able to provide any history. In addition pelvic x-ray obtained looking for trauma. CBC does not show left shift but does show a leukocytosis of 14.9. He is currently on antibiotics as well as prednisone taper so could be elevated from the prednisone. He is afebrile in the emergency room. He has a chronic but stable anemia with a hemoglobin of 10.1 today. BMP large unremarkable. Urinalysis not consistent with infection and I suspect his prior UTI has been adequately treated. Chest x-ray does show right basilar atelectasis and pleural effusion. This is read by myself as well as radiology. This is in the site of his recent pneumonia and I suspect is the progression of his recovery pneumonia. Does show some findings of pulmonary vascular congestion. Patient clinically does not appear fluid overloaded. Do not think this requires further emergent workup. Patient is on his baseline oxygen in the emergency room. Pelvic x-ray does not show any acute traumatic process reviewed by myself as well as radiology. ABG in the ER does not show any decompensated hypercapnic respiratory failure. He is mildly hypoxic with a pO2 of 65 however his O2 saturation does improve while in the emergency room on his baseline oxygen. Suspect he did have underlying hypoxia from being off oxygen with his fall. Patient is not appear to have any acute traumatic injury and his labs are stable I will feel that he can be discharged back to his nursing [facility]. Did speak with his doctor there, Dr. Prather, who was agreeable. History & Record Review Additional record(s) reviewed:: Prior inpatient record (Discharge summary from yesterday) Lab Data Attestation: I reviewed the patient's lab results. Labs: Laboratory Results - last 24 hr 05/18/25 05/18/25 11:10 11:35 WBC 14.9 H RBC 4.04 L Hgb 10.1 L Hct 33.9 L MCV 83.9 MCH 25.0 L MCHC 29.8 L RDW Std Deviation 54.7 H RDW Coeff of Aly 18.0 H Plt Count 670 H MPV 9.4 Immature Gran % (Auto) 0.800 Neut % (Auto) 88.9 H Lymph % (Auto) 5.5 L Jay % (Auto) 3.5 Eos % (Auto) 0.9 Baso % (Auto) 0.4 Absolute Neuts (auto) 13.3 H Absolute Lymphs (auto) 0.82 L Nucleated RBC % 0.1 Sodium 139 Potassium 4.4 Chloride 100 Carbon Dioxide 29.4 Anion Gap 10 BUN 24 H Creatinine 0.93 Estim Creat Clear Calc 54.46 Est GFR (MDRD) Non-Af 85 BUN/Creatinine Ratio 25.2 H Glucose 96 Calcium 9.1 Urine Color Yellow Urine Clarity Clear Urine pH 8.0 Ur Specific [place] 1.010 Urine Protein 15 H Urine Glucose (UA) Normal Urine Ketones Negative Urine Occult Blood 25 H Urine Nitrite Negative Urine Bilirubin Negative Urine Urobilinogen Normal Ur Leukocyte Esterase Negative Urine RBC 0-5 SEEN Urine WBC 0 SEEN Ur Squamous Epith Cells 0-5 SEEN Urine Bacteria 0 SEEN Urine Mucus 0 SEEN ABG Data ABG results: ABG 05/18/25 12:01 Specimen Type ART Sample Site R Radial pH 7.44 Bicarbonate Actual 30.7 H Total CO2 32 Base Excess 7 H O2 Saturation 93 L O2 % 2.0 ABG pCO2 45.1 H ABG pO2 65 L Dann Test Positive O2 Delivery Device Cannula Vent Mode Not entered Radiography Diagnostic Testing: Clinical Impression(s) from Imaging Studies Brain CT 05/18/25 11:01 IMPRESSION: No definite acute intracranial injury. Incidental findings as above. Reading Location: [facility] Cervical Spine CT 05/18/25 11:01 IMPRESSION: Degenerative disc disease and alignment abnormalities as above. There is no acute fracture or subluxation visualized. Reading Location: [facility] Pelvis X-Ray 05/18/25 11:01 IMPRESSION: No acute abnormality identified. Other findings as noted. Reading Location: [facility] Chest X-Ray 05/18/25 11:20 IMPRESSION: 1. Mild congestive heart failure. 2. Interval development of significant right lower lobe atelectasis and a right pleural effusion. Reading Location: [facility] Rhythm Strip Rhythm Strip: Sinus Rhythm Rate: 76 Ectopy: None EKG Initial EKG: Attestation: I personally reviewed and interpreted this EKG as follows: Interpretation: Sinus Rhythm Comments: Normal sinus rhythm rate of 76 bpm Normal axis Normal intervals Normal ST segments Management Discussion w/another healthcare provider: PCP Discharge Plan Triage Chief Complaint: Fall ED Provider: Bev Fowler Dx/Rx/DC Orders Clinical Impression: Fall, Chronic hypoxic respiratory failure, Current use of fdc anticoagulation, Leukocytosis Instructions: ED Fall with Uncertain Cause Prescriptions: No Action acetaminophen 325 mg Tablet 650 mg feeding tube Q6H PRN PRN (Reason: Pain 1-10 Or Fever>100.7) Qty: 0 0RF ipratropium-albuterol 0.5 mg-3 mg(2.5 mg base)/3 mL Solution For Nebulization 3 ml inhalation .q6hwa Qty: 0 0RF clonidine 0.2 mg/24 hr Patch Weekly 0.2 mg transdermal Q7D Qty: 0 0RF amlodipine 10 mg Tablet 10 mg G-tube DAILY.RT Qty: 0 0RF carbamazepine 100 mg/5 mL Suspension 200 mg G-tube 4X/DAY Qty: 0 0RF thiamine HCl (vitamin B1) 100 mg Tablet 100 mg G-tube BREAKFAST Qty: 0 0RF sertraline 100 mg tablet 100 mg feeding tube DAILY 30 Days Qty: 30 0RF mirtazapine 15 MG tablet 15 mg feeding tube QHS 30 Days Qty: 30 0RF ergocalciferol (vitamin D2) [Vitamin D2] 1,250 mcg (50,000 unit) Capsule 1,250 mcg feeding tube Q7D Qty: 0 0RF losartan 100 mg tablet 100 mg feeding tube DAILY 30 Days Qty: 30 0RF cholecalciferol (vitamin D3) 50 mcg (2,000 unit) tablet 50 mcg feeding tube DAILY 30 Days Qty: 30 0RF hydralazine 25 mg Tablet 50 mg G-tube 3XD Rx Instructions: Hold for SBP less than 110 atorvastatin 40 mg Tablet 40 mg G-tube QHS Qty: 0 0RF lansoprazole [Prevacid] 30 mg capsule,delayed release(DR/EC) 30 mg feeding tube BID Qty: 1 0RF Eliquis 5 mg Tablet 2.5 mg G-tube BID albuterol sulfate 2.5 mg /3 mL (0.083 %) Solution For Nebulization 2.5 mg inhalation Q2H PRN PRN (Reason: Dyspnea, wheezing) Qty: 0 0RF menthol-zinc oxide [Calmoseptine] 0.44-20.6 % Ointment 1 applic topical 4X/DAY Qty: 0 0RF Protocol: *Topical Application Instructions APPLICATION INSTRUCTIONS: apply to affected region bisacodyl 10 mg suppository 10 mg HI PRN divalproex [Depakote] 125 mg tablet,delayed release (DR/EC) 125 mg PO BID Patient Comments: VIA G-TUBE Glucagon Emergency Kit (human) 1 mg recon soln 1 mg IM Q20M PRN (Reason: hypoglycemia) Rx Instructions: until target blood sugar attained tamsulosin 0.4 mg capsule 0.4 mg PO QHS guaifenesin [Adult Wal-Tussin] 100 mg/5 mL liquid 200 mg PO Q4H PRN (Reason: congestion/COUGH) metoprolol tartrate 50 mg tablet 50 mg feeding tube BID magnesium hydroxide [Gentle Laxative (mag hydrox)] 400 mg/5 mL suspension 30 ml PO DAILY prednisone 20 mg Tablet See Taper PO BREAKFAST Qty: 32 0RF Taper: Prednisone Taper 60 mg WITH BREAKFAST for 3 Days and 0 Hour 50 mg WITH BREAKFAST for 3 Days and 0 Hour 40 mg WITH BREAKFAST for 3 Days and 0 Hour 30 mg WITH BREAKFAST for 3 Days and 0 Hour 20 mg WITH BREAKFAST for 3 Days and 0 Hour 10 mg WITH BREAKFAST for 3 Days and 0 Hour levofloxacin 750 mg tablet 750 mg PO DAILY 2 Days Qty: 2 0RF Jevity 1.5 Alex 0.06 gram-1.5 kcal/mL Liquid 300 ml G-tube 5X/DAY Qty: 0 0RF Primary Care Provider: Lorraine Mena Referrals: Lorraine Mena MD [Primary Care Provider, Internal Medicine] Activity Restrictions/Additional Instructions: Miles did have a mild elevation of his white blood cell count but likely from being on steroids right now. No signs of acute or worsening infection. No signs of trauma from his fall today. Continue to have him wear 2 L of oxygen. Follow-up with family doctor Print Language: Kuwaiti Disposition Disposition: [facility] Facility Discharge Location: [facility]
[2025-05-18 11:17] LABS: Hematocrit 33.9 % (40-54); Hemoglobin 10.1 g/dL (13.0-16.5); Immature Granulocytes Count 0.120 X10^3/uL (0.0-0.0); Mean Corp Hgb Conc 29.8 g/dL (32-36); Mean Corpuscular Volume 83.9 fL (80-94); Mean Platelet Vol. 9.4 fl (6.2-12.0); NRBC Flagged by Analyzer 0.1 % (0-5); Platelet Count 670 K/mm3 (150-450); RBC Distribution Width CV 18.0 % (11.6-14.6); RBC Distribution Width SD 54.7 fl (35.1-43.9); Red Blood Count 4.04 M/mm3 (4.6-6.2); White Blood Count 14.9 K/mm3 (4.4-11.0)
--- NOTE | 2025-05-18 11:20 | RAD_ITS ---
PROCEDURE: CHEST 1 VIEW (PORTABLE) 05/18/2025 REASON FOR EXAM: SOB TECHNIQUE: Frontal view of the chest. COMPARISON: Portable chest, 05/12/2025 FINDINGS: There has been interval development of airspace consolidation in the right lung base consistent with significant consolidation/atelectasis of the lower lobe of the right lung. There may be a right pleural effusion. There is cardiomegaly, pulmonary venous hypertension and pulmonary interstitial edema consistent with congestive heart failure. There is calcific vascular disease of the thoracic aorta. RAD/Chest 1 View (Portable) IMPRESSION: 1. Mild congestive heart failure. 2. Interval development of significant right lower lobe atelectasis and a righ t pleural effusion. Reading Location: [id number]
[2025-05-18 11:42] VITALS: BP 185/95; PULSE 74; RESP 22; O2SAT 99
[2025-05-18 11:42] LABS: Mucous, Urine 0 SEEN /hpf (<or=2+)
[2025-05-18 11:46] LABS: Anion Gap 10 (5-15); BUN 24 mg/dL (4-19); BUN/Creat Ratio 25.2 RATIO (10-20); Calcium,Total 9.1 mg/dL (7.6-11.0); Carbon Dioxide 29.4 mmol/L (21.0-32.0); Chloride 100 mmol/L (98-108); Estimated Creatinine Clearance 54.46 ml/min (50-250); Glucose 96 mg/dL (70-99); Potassium 4.4 mmol/L (3.3-5.1)
[2025-05-18 11:47] LABS: Color, Urine Yellow (Yellow); Glucose, Dipstick Normal (Normal); Ketone-Dipstick Negative (Negative); Leukocyte Esterase-Dipstick Negative /ul (Negative); Nitrite-Dipstick Negative (Negative); Occult Blood-Urine 25 /ul (Negative); Protein-Dipstick 15 mg/dl (Negative); Specific Gravity, Urine 1.010 (1.002-1.030); Urine Bilirubin Dipstick Negative (Negative)
[2025-05-18 11:57] LABS: Red Blood Cells-Urine 0-5 SEEN /hpf (0-5); Squamous Epithelial Cells - UA 0-5 SEEN /hpf (0-5)
[2025-05-18 12:05] LABS: Allen Test Positive; Base Excess 7 mmol/L (-2 to +2); FI02 2.0; PO2 65 mmHG (75-100); SITE R Radial; SO2 93 % (94-98)
[2025-05-18 12:16] VITALS: O2SAT 98
[2025-05-18 12:50] VITALS: BP 180/77; PULSE 77; RESP 18; O2SAT 99
[2025-05-18 13:06] VITALS: TEMP 36.6; O2SAT 97
--- NOTE | 2025-05-18 13:41 | ED.RN ---
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
== END 2025-05-18 15:38 | disposition skilled nursing facility (03) ==
PROVIDERS: Emergency Provider Emergency Medicine; PCP Internal Medicine; Visit Provider Emergency Medicine
DX: D72.829 Elevated white blood cell count, unspecified (principal); J96.11 Chronic respiratory failure with hypoxia; I11.0 Hypertensive heart disease with heart failure; I50.9 Heart failure, unspecified; J44.9 Chronic obstructive pulmonary disease, unspecified; I48.0 Paroxysmal atrial fibrillation; G40.909 Epilepsy, unspecified, not intractable, without status epilepticus; K51.90 Ulcerative colitis, unspecified, without complications; E11.51 Type 2 diabetes mellitus with diabetic peripheral angiopathy without gangrene; W19.XXXA Unspecified fall, initial encounter; Y92.129 Unspecified place in nursing home as the place of occurrence of the external cause; Z99.81 Dependence on supplemental oxygen; K21.9 Gastro-esophageal reflux disease without esophagitis; N40.0 Benign prostatic hyperplasia without lower urinary tract symptoms; M81.0 Age-related osteoporosis without current pathological fracture; D50.9 Iron deficiency anemia, unspecified; E78.5 Hyperlipidemia, unspecified; I25.10 Atherosclerotic heart disease of native coronary artery without angina pectoris; I69.320 Aphasia following cerebral infarction; F41.9 Anxiety disorder, unspecified; F32.A Depression, unspecified; G89.29 Other chronic pain; G47.33 Obstructive sleep apnea (adult) (pediatric); F17.200 Nicotine dependence, unspecified, uncomplicated; Z87.19 Personal history of other diseases of the digestive system; Z79.51 Long term (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 of inhaled steroids; Z87.01 Personal history of pneumonia (recurrent); Z87.440 Personal history of urinary (tract) infections; Z79.899 Other long term (current) drug therapy; Z79.01 Long term (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 of anticoagulants
CPT/HCPCS: 36600; 70450; 71045; 72125; 72170; 80048; 81001; 82803; 85025; 93005; 99285; P9612

== ENCOUNTER 2025-06-09 11:33 | Inpatient (IN) | payer MEDICARE, MEDICAID, SELFPAY ==
[2025-06-09] VITALS (14 sets, daily range): BP systolic 99–150; BP diastolic 43–120; PULSE 60–85; RESP 14–41; TEMP 36.5–36.8; O2SAT 70–100; BMI 18.5
--- NOTE | 2025-06-09 12:06 | RAD_ITS ---
PROCEDURE: CHEST 1 VIEW (PORTABLE) 06/09/2025 REASON FOR EXAM: SOB TECHNIQUE: Frontal view of the chest. COMPARISON: 05/18/2025. FINDINGS: Intervally decreased right lung opacity which is resolved since the prior radiograph. New faint left basilar ill-defined opacity which may represent pneumonia. The heart borders are unremarkable. No acute osseous abnormalities. RAD/Chest 1 View (Portable) IMPRESSION: Possible left pneumonia. Resolved right opacity. Reading Location: [facility]
[2025-06-09 12:18] LABS: Hematocrit 31.2 % (40-54); Hemoglobin 9.5 g/dL (13.0-16.5); Immature Granulocytes Count 0.030 X10^3/uL (0.0-0.0); Mean Corp Hgb Conc 30.4 g/dL (32-36); Mean Corpuscular Volume 81.9 fL (80-94); Mean Platelet Vol. 10.1 fl (6.2-12.0); NRBC Flagged by Analyzer 0 % (0-5); Platelet Count 391 K/mm3 (150-450); RBC Distribution Width CV 18.2 % (11.6-14.6); RBC Distribution Width SD 54.2 fl (35.1-43.9); Red Blood Count 3.81 M/mm3 (4.6-6.2); White Blood Count 9.0 K/mm3 (4.4-11.0)
[2025-06-09 12:27] LABS: Prothrombin Time (Protime)PT. 13.1 SECONDS (11.7-14.9)
[2025-06-09 12:28] LABS: Partial Thromboplast Time 31.6 Seconds (24.1-36.2)
[2025-06-09] MEDS: 0.9% Normal Saline (500mL Bag) 500 ML 999 ML IV (12:33)
[2025-06-09 12:43] LABS: AST(SGOT) 23 U/L (<=37); Alanine Aminotransfer ALT/SGPT 20 U/L (<=46); Albumin, Serum 3.6 g/dL (3.4-4.8); Alkaline Phosphatase 104 U/L (40-129); Anion Gap 9 (5-15); BUN 26 mg/dL (4-19); BUN/Creat Ratio 28.3 RATIO (10-20); Calcium,Total 9.1 mg/dL (7.6-11.0); Carbon Dioxide 28.8 mmol/L (21.0-32.0); Chloride 94 mmol/L (98-108); Estimated Creatinine Clearance 65.64 ml/min (50-250); Globulin 2.9 g/dL (2.2-4.2); Glucose 132 mg/dL (70-99); Potassium 4.7 mmol/L (3.3-5.1); Troponin T High Sensitivity 41 ng/L (<=22)
[2025-06-09 13:01] LABS: FI02 2.0; SITE Not entered; VBG BASE EXCESS 4 mmol/L (-1.0-3.5); VBG PO2 48 mmHg (25-40); VBG SO2 83 % (50-70); VBG TCO2 30 mmol/L (23-33)
--- NOTE | 2025-06-09 14:10 | PCM.HP.STD ---
HPI - General General Date of Admission: 06/09/25 Date of Service: 06/09/25 Chief Complaint: Hypoxic at SNF. HPI Narrative The patient is a 75 y/o M w/ PMHx: Former EtOH abuse, BPH with obstructive pathology, PAD s/p peripheral PCI, PAF reporting that he is on chronic Coumadin therapy, HTN, HLD, Chronic anemia/Fe deficiency anemia, COPD/Asthma w/ Chronic Hypoxic Respiratory Failure (2L NC), Seizure disorder, CKD stage III unclear subtype or GFR trending, GERD, BPH with obstructive pathology, Anxiety and depression, PJ, Former tobacco use, Hx CVA with significant chronic aphasia, dysphagia, R sided hemiplegia with PEG tube who presents to the [facility] ED on 06/09/2025 with history of low oxygen saturations at skilled facility despite his chronic 2 L of cannula supplementation noted specifically to be in the 70s but per staff report he frequently takes off his oxygen and refuses to have it back on noted to be very combative at the facility and also with EMS on chronic as needed sedating medications including Ativan last noted to be at 0400 eventually prompting ED evaluation. Workup in the ED included T98, heart rate 62, BP 140/66, respiratory rate 32, 97% on 2 L nasal cannula with most recent repeat T98.2, heart rate 61, BP 99/57, respiratory rate 25, 99% on 2 L nasal cannula, CBC with WC 9.0, hemoglobin 9.5, MCV 81.9, platelet 391 with lymphopenia, unremarkable coags, VBG with pH 7.40, PaO2 48, bicarb 29, O2 saturation 83% on nasal cannula, CMP with sodium 132, chloride 94, BUN/creatinine 26/0.91, GFR 88, glucose 132, hepatic profile not marked appearing, initial troponin 41, lactic acid 1.2, chest x-ray with a possible left pneumonia with resolved prior right opacity. In the ED patient administered 1 L normal saline, Solu-Medrol 125 mg IV x 1, Ativan 0.5 mg IV x 1, DuoNeb therapy, azithromycin 500 mg IV x 1, Rocephin 1 g IV x 1. [facility] Medical History Urinary tract infection due to extended-spectrum beta lactamase (ESBL) producing Escherichia coli Anemia Acute on chronic hypoxic respiratory failure Hemiplegia Pneumonia History of ESBL E. 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 History of atrial fibrillation Obstructive sleep apnea Seizure disorder Lupus anticoagulant disorder Bronchospasm, acute Aspiration into respiratory tract Acute and chronic respiratory failure with hypoxia Hypertension Dyspnea Acute CVA (cerebrovascular accident) Hypertension Weakness Failure to thrive Compression fx, lumbar spine Hypertension Falls Hypertension Closed fracture of right superior pubic ramus Multiple falls Compression fracture of thoracic vertebra Iron deficiency anemia Chronic respiratory failure with hypoxia Osteoporosis Lumbar compression fracture Compression fracture Hyperlipidemia Asthma Peripheral arterial occlusive disease Chronic obstructive pulmonary disease Coronary artery disease BPH (benign prostatic hyperplasia) Ulcerative colitis Peripheral vascular disease Anxiety COPD (chronic obstructive pulmonary disease) with emphysema Closed fracture of right inferior pubic ramus Acute UTI COPD (chronic obstructive pulmonary disease) UTI (urinary tract infection) Depression Diabetes Kidney stones Chronic pain Pancreatitis On home oxygen therapy Irregular heart beat Atrial fibrillation Stroke/cerebrovascular accident Smoker Falls frequently Seizures Sleep apnea COPD (chronic obstructive pulmonary disease) Asthma High cholesterol Tobacco abuse Home Medications ?Medication ?Instructions ?Recorded ?Last Taken ?Type carbamazepine 100 mg/5 mL oral 200 mg (10 mL) G-tube 4X/DAY #0 mL 12/24/24 Unknown Rx suspension cholecalciferol (vitamin D3) 50 50 mcg feeding tube DAILY 12/24/24 01/05/25 Rx mcg (2,000 unit) tablet SUPPLEMENT 30 days #30 tabs ergocalciferol (vitamin D2) 1,250 1,250 mcg feeding tube Q7D 12/24/24 12/13/24 08:58 Rx mcg (50,000 unit) capsule (Vitamin SUPPLEMENT #0 caps D2) mirtazapine 15 mg tablet 15 mg feeding tube QHS anti 12/24/24 12/12/24 20:59 Rx depressant 30 days #30 tabs sertraline 100 mg tablet 100 mg feeding tube DAILY 12/24/24 Unknown Rx DEPRESSION 30 days #30 tabs thiamine HCl (vitamin B1) 100 mg 100 mg G-tube BREAKFAST supplement 12/24/24 Unknown Rx tablet #0 tabs hydralazine 25 mg tablet 25 mg G-tube 3XD blood pressure 01/03/25 Unknown History atorvastatin 40 mg tablet 40 mg G-tube QHS hld #0 tabs 01/08/25 Unknown Rx apixaban 5 mg tablet (Eliquis) 2.5 mg G-tube BID blood thinner 05/03/25 Unknown History bisacodyl 10 mg rectal suppository 10 mg VA PRN bowel movement 05/12/25 Unknown History glucagon 1 mg solution for 1 mg IM Q20M PRN hypoglycemia 05/12/25 Unknown History injection (Glucagon Emergency Kit) guaifenesin 100 mg/5 mL oral 200 mg PO Q4H PRN congestion/COUGH 05/12/25 Unknown History liquid (Adult Wal-Tussin) magnesium hydroxide 400 mg/5 mL 30 ml feeding tube DAILY bowel 05/12/25 Unknown History oral suspension (Gentle Laxative movement (magnesium hydroxide)) metoprolol tartrate 50 mg tablet 50 mg feeding tube BID heart 05/12/25 Unknown History tamsulosin 0.4 mg capsule 0.4 mg PO QHS bph 05/12/25 Unknown History acetaminophen 325 mg tablet 650 mg feeding tube Q4H PRN Pain 06/09/25 Unknown History 1-10 Or Fever>100.7 acetaminophen 650 mg rectal 650 mg VA Q4H PRN fever or pain 06/09/25 Unknown History suppository albuterol sulfate 2.5 mg/3 mL 2.5 mg inhalation Q6H PRN copd 06/09/25 Unknown History (0.083 %) solution for nebulization aluminum-magnesium hydroxide 200 30 ml feeding tube Q4H PRN gi 06/09/25 Unknown History mg-200 mg/5 mL oral suspension distress amlodipine 10 mg tablet 10 mg G-tube DAILY HTN 06/09/25 Unknown History clonidine 0.2 mg/24 hr weekly 0.2 mg transdermal MO blood 06/09/25 Unknown History transdermal patch pressure guaifenesin 400 mg tablet (Chest 400 mg PO TID PRN congestion/cough 06/09/25 Unknown History Congestion Relief) hydroxyzine HCl 25 mg tablet 50 mg PO Q8H PRN agitation 06/09/25 Unknown History ipratropium 0.5 mg-albuterol 3 mg 3 ml inhalation Q6H PRN copd 06/09/25 Unknown History (2.5 mg base)/3 mL nebulization soln loperamide 2 mg capsule (Imodium 2 mg feeding tube DAILY 06/09/25 Unknown History A-D) lorazepam 0.5 mg tablet (Ativan) 0.5 mg PO Q8H PRN agitation/ 06/09/25 06/09/25 04:00 History anxiety losartan 100 mg tablet 100 mg feeding tube QHS Blood 06/09/25 Unknown History Held on 05/17/25. pressure Instructions: Resume on 05/20/25. omeprazole 2 mg-sodium bicarbonate 10 ml feeding tube BID gerd 06/09/25 Unknown History 84 mg/mL oral suspension sodium phosphates 19 gram-7 118 ml VA DAILY PRN constipation 06/09/25 Unknown History gram/118 mL enema (Enema) valproic acid (as sodium salt) 250 125 mg feeding tube TID seizures 06/09/25 Unknown History mg/5 mL oral solution Allergy/AdvReac Type Severity Reaction Status Date / Time No Known Allergies Allergy Verified 06/09/25 11:39 Family History Mother Heart disease CVA (cerebral vascular accident) Hypertension Father Heart disease CVA (cerebral vascular accident) Hypertension Surgical History S/P arterial stent History of appendectomy Social History household members: caregiver housing: [employer] 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 Smoking Status: Light Smoker (<10/day) alcohol intake: former details: Former alcoholic quit several years ago substance use type: does not use caffeine: Yes Type: coffee Number of servings: 3 ROS Review of Systems ROS Unobtainable: due to mental condition and due to mental status Patient's Goals Of Care . What would you like to achieve or improve as a result of your hospital stay?: NA-aphasic s/p CVA Vital Signs Vital Signs Vital Signs: 06/09/25 11:35 06/09/25 11:46 06/09/25 11:49 Temperature 98 F 98.0 F Temperature Source Temporal Axillary Pulse Rate 62 60 Respiratory Rate 32 H 41 H Respiratory Effort Short of Breath Labored Respiratory Depth Deep Respiratory Pattern Tachypnea Blood Pressure 142/66 H 137/61 H Blood Pressure Mean 91 86 Pulse Ox 97 99 Oxygen Delivery Method Nasal Cannula Nasal Cannula Room Air Oxygen Flow Rate (L/min) 2 3 06/09/25 12:34 06/09/25 12:37 06/09/25 12:39 Temperature 98.2 F Temperature Source Axillary Pulse Rate 61 61 Respiratory Rate 26 H 25 H Respiratory Effort Respiratory Depth Respiratory Pattern Blood Pressure 99/57 L 99/57 L Blood Pressure Mean 71 71 Pulse Ox 98 98 99 Oxygen Delivery Method Room Air Nasal Cannula Nasal Cannula Oxygen Flow Rate (L/min) 2 2 06/09/25 13:00 06/09/25 14:00 Temperature 97.9 F 97.9 F Temperature Source Axillary Oral Pulse Rate 64 82 Respiratory Rate 14 33 H Respiratory Effort Respiratory Depth Respiratory Pattern Blood Pressure 134/65 H 123/67 H Blood Pressure Mean 87 76 Pulse Ox 98 98 Oxygen Delivery Method Nasal Cannula Nasal Cannula Oxygen Flow Rate (L/min) 2 2 Weight Weight: 148 lb 2.41 oz Body Mass Index (BMI) 20.0 Physical Exam Narrative Physical Examination: General: Awake, appears alert but not answering any orientation questions, aphasic which is baseline, moaning in intermittently, laying on his right side in the ED, currently tachypneic with ongoing wheezing but very anxious, currently on nasal cannula but nurse notes upon my evaluation that he has had agitation and frequently attempted to take nasal cannula off. Skin: Normal color, normal turgor, no icterus, no cyanosis except occasional stage ecchymoses, abrasions. HEENT: AT/NC, EOMI, chronic significant right pupil abnormality, mildly dry MM, chronic left facial droop. Lungs: Notably diminished, greater bases, left greater than right, diffuse end expiratory wheezing mildly harsh, tachypneic with accessory muscle usage but no overt distress however currently he is anxious and mildly agitated, nasal cannula currently in place but he has been taking it off or attempting per discussion with ED nurse. Heart: Currently regular rate and rhythm; no gallop, rub audible. Abdomen: Soft, no grimacing with palpation of the abdomen, no obvious marked distention, distant BS, PEG tube in place, no appreciated HSM. Extremities: No cyanosis, no clubbing, no significant distal edema. Neurological: Awake, appears alert but not answering any orientation questions, chronically aphasic, cognitive function chronically significantly decreased secondary to previous stroke and appears currently at his baseline compared to previous evaluations, cranial nerves difficult to assess given command difficulties with significant stroke deficits chronically, chronic pupillary changes as noted, global aphasia, history of chronic right-sided mild hemiplegia, strength severely globally decreased. Psychiatric: Affect appears mildly agitated, less than previously, recent Ativan administration per ED nurse discussion, does have underlying anxiety and depression. Results Lab / Micro Data 06/09/25 11:45 06/09/25 11:45 Labs: Laboratory Results - last 24 hr 06/09/25 11:45: WBC 9.0, RBC 3.81 L, Hgb 9.5 L, Hct 31.2 L, MCV 81.9, MCH 24.9 L, MCHC 30.4 L, RDW Std Deviation 54.2 H, RDW Coeff of Aly 18.2 H, Plt Count 391, MPV 10.1, Immature Gran % (Auto) 0.300, Neut % (Auto) 79.2 H, Lymph % (Auto) 6.8 L, [place] % (Auto) 8.9, Eos % (Auto) 3.8, Baso % (Auto) 1.0, Absolute Neuts (auto) 7.1, Absolute Lymphs (auto) 0.61 L, Nucleated RBC % 0, PT 13.1, INR 1.0, APTT 31.6, Sodium 132 L, Potassium 4.7, Chloride 94 L, Carbon Dioxide 28.8, Anion Gap 9, BUN 26 H, Creatinine 0.91, Estim Creat Clear Calc 65.64, Est GFR (MDRD) Non-Af 88, BUN/Creatinine Ratio 28.3 H, Glucose 132 H, Lactic Acid 1.2, Calcium 9.1, Total Bilirubin 0.17, AST 23, ALT 20, Alkaline Phosphatase 104, Troponin T High Sens 41 H D, Total Protein 6.5, Albumin 3.6, Globulin 2.9, Albumin/Globulin Ratio 1.3 Micro: Microbiology 06/09/25 13:00 Mucosa - Nose SARS-CoV-2, Influenza & RSV (PCR) - Final ABG Data ABG results: ABG 06/09/25 12:58 Specimen Type LASHAE Sample Site Not entered O2 % 2.0 VBG pH 7.40 VBG pO2 48 H VBG HCO3 29 H VBG Total CO2 30 VBG O2 Sat (Calc) 83 H VBG Base Excess 4 H POC Mix VBG pCO2 Pt Tmp 46.0 O2 Delivery Device Cannula Imaging Radiology Impression Chest X-Ray 06/09/25 12:06 IMPRESSION: Possible left pneumonia. Resolved right opacity. Reading [facility] Assessment & Plan Assessment/Plan (1) COPD exacerbation: PLAN: Plan The patient is a 75 y/o M w/ PMHx: Former EtOH abuse, BPH with obstructive pathology, PAD s/p peripheral PCI, PAF reporting that he is on chronic Coumadin therapy, HTN, HLD, Chronic anemia/Fe deficiency anemia, COPD/Asthma w/ Chronic Hypoxic Respiratory Failure (2L NC), Seizure disorder, CKD stage III unclear subtype or GFR trending, GERD, BPH with obstructive pathology, Anxiety and depression, PJ, Former tobacco use, Hx CVA with significant chronic aphasia, dysphagia, R sided hemiplegia with PEG tube who presents to the [facility] ED on 06/09/2025 with history of low oxygen saturations at skilled facility despite his chronic 2 L of cannula supplementation noted specifically to be in the 70s but per staff report he frequently takes off his oxygen and refuses to have it back on noted to be very combative at the facility and also with EMS on chronic as needed sedating medications including Ativan last noted to be at 0400 eventually prompting ED evaluation. #1. Possible Acute L Basilar PNA, Possible GN/GP organisms given recent serial admissions in addition to chronic Aspiration concerns with associated Acute on Chronic COPD/Asthma exacerbation: Will admit to PCU and keep his vest on in an attempt to maintain telemetry in place, currently appropriate maintained on his home 2 L nasal cannula however if necessary may increase and wean to home level as needed, patient with noncompliance with PAP therapy but if status worsens may need to consider transition to ICU with precedex but ideally once he is more calm his tachypnea will improve, will maintain on ATC duonebs, PRN albuterol, IV methylprednisolone, will initiate and maintain on IV Zosyn as well as IV vancomycin with MRSA screen requested with de-escalation as able given significant recent prolonged admission history as, HOB, IS parameters, will obtain sputum Cx, full respiratory viral panel, procalcitonin. PT/OT/ST/case management consulted for discharge planning. #2. Hx CVA with history of bilateral carotid stenosis: Patient with chronic aphasia, R sided hemiplegia, dysphagia with PEG tube, maintained on aspiration/fall precautions, continue tube feeds per home regimen once clarified, continue Eliquis, statin, hypertensive regimen as noted. #3. PAD: Will continue patient Eliquis, statin, hypertensive regimen as noted. #4. Hypertension: Continue home regimen including amlodipine, clonidine, hydralazine, losartan, metoprolol with hold parameters as needed, PRN hydralazine. #5. Hyperlipidemia: Will continue home statin therapy. #6. Chronic Kidney Disease Stage II per GFR trending: Admission BUN/Cr 26/0.91, GFR 88, baseline renal function 1.1-1.2, will repeat BMP in AM. #7. Chronic normocytic anemia/iron deficient anemia: Admission hemoglobin 9.5, 81.9, baseline hemoglobin 9-10, will continue to trend. #8. PAF: Will continue patient home metoprolol and Eliquis regimen. #9. Anxiety and depression: Will continue patient home sertraline and mirtazapine home regimen. Continue low dose as needed ativan and also hydroxyzine. May need to consider low dose risperidol also. #10. BPH with obstructive pathology: Will continue patient on Flomax home regimen, previously also been noted to be on finasteride but not currently listed. #11. GERD: Will continue patient on PPI. #12. Seizure disorder: Continue home valproic acid as well as carbamazepine home regimen. #13. Former tobacco use: Encourage continued tobacco cessation. #14. PJ: Noncompliant with PAP therapy, will continue supplemental oxygen, chronically on 2 L nasal cannula as noted. #15. Former alcohol abuse: Encourage continued sobriety. #16. DVT prophylaxis: Will continue patient home Eliquis regimen. #17. CODE status: Per SNF paperwork Full Code. Daughter is his HCPOA and ED did discuss his status with her and recommended eventual transition of full code status but at this time preference to maintain full code. Charges/Coding Visit Charges Inpatient E&M: 04293 Init Hosp L3
[2025-06-09] MEDS: Azithromycin 500 MG in 0.9% Normal Saline (250mL Bag) 250 ML 250 MG IV (14:29)
[2025-06-09 14:43] LABS: Troponin T High Sens 2 HR 35 ng/L (<=22)
--- NOTE | 2025-06-09 14:58 | ED.VIS.DYS ---
HPI History of Present Illness Chief Complaint: Shortness of Breath Narrative Narrative: Chief complaint and HPI: History taken by medical record as well as report. 75-year-old male with history of proximal A-fib on Eliquis, prior CVA with significant deficits including PAD and alert and oriented x 1 (per report), seizures, COPD with chronic respiratory failure on 2 L nasal cannula, GERD presents for evaluation of increased agitation and increased work of breathing. Patient unable to get history due to his baseline mental status. On presentation he is agitated and tachypneic. Per care facility patient has been more combative and agitated. He refuses to wear his oxygen in which it leads to hypoxia. He was given Ativan last at 4 AM. Patient is DNR CCA. His POA recently and his next account is his daughter. I did contact her. She confirmed that patient is DNR CCA. However intubation is needed consents. Review of systems: See HPI Medications: As listed on the chart Allergies: As listed on the chart PFSH: Per chart Vital signs: As listed on the chart. Reviewed. Physical exam: Gen: A&O x1-patient's reported baseline, agitated Head: Normocephalic, atraumatic Eyes: No sclera icterus, conjunctiva clear, PERRL ENT: Dry mucous membranes Neck: Trachea midline CV: RRR, no murmurs, no peripheral edema Resp: Lungs coarse bilaterally, expiratory wheezing, tachypneic, on 2 L nasal cannula GI: Abd soft, non-distended, non-tender, no r/r/g Musc: Full ROM, no deformity Skin: Warm, dry Psych: Uncooperative, agitated PFSH PFS Medical History Urinary tract infection due to extended-spectrum beta lactamase (ESBL) producing Escherichia coli Anemia Acute on chronic hypoxic respiratory failure Hemiplegia Pneumonia History of ESBL E. coli infection COPD with exacerbation Carotid stenosis, bilateral Presence of externally removable percutaneous endoscopic gastrostomy (PEG) tube Inability to walk CVA (cerebral vascular accident) Aphasia Debility COPD (chronic obstructive pulmonary disease) Current use of snf anticoagulation History of atrial fibrillation Obstructive sleep apnea Seizure disorder Lupus anticoagulant disorder Bronchospasm, acute Aspiration into respiratory tract Acute and chronic respiratory failure with hypoxia Hypertension Dyspnea Acute CVA (cerebrovascular accident) Hypertension Weakness Failure to thrive Compression fx, lumbar spine Hypertension Falls Hypertension Closed fracture of right superior pubic ramus Multiple falls Compression fracture of thoracic vertebra Iron deficiency anemia Chronic respiratory failure with hypoxia Osteoporosis Lumbar compression fracture Compression fracture Hyperlipidemia Asthma Peripheral arterial occlusive disease Chronic obstructive pulmonary disease Coronary artery disease BPH (benign prostatic hyperplasia) Ulcerative colitis Peripheral vascular disease Anxiety COPD (chronic obstructive pulmonary disease) with emphysema Closed fracture of right inferior pubic ramus Acute UTI COPD (chronic obstructive pulmonary disease) UTI (urinary tract infection) Depression Diabetes Kidney stones Chronic pain Pancreatitis On home oxygen therapy Irregular heart beat Atrial fibrillation Stroke/cerebrovascular accident Smoker Falls frequently Seizures Sleep apnea COPD (chronic obstructive pulmonary disease) Asthma High cholesterol Tobacco abuse Home Medications ?Medication ?Instructions ?Recorded ?Last Taken ?Type carbamazepine 100 mg/5 mL oral 200 mg (10 mL) G-tube 4X/DAY 12/24/24 Unknown Rx suspension unspecified convulsions #0 mL cholecalciferol (vitamin D3) 50 50 mcg feeding tube DAILY 12/24/24 01/05/25 Rx mcg (2,000 unit) tablet SUPPLEMENT 30 days #30 tabs mirtazapine 15 mg tablet 15 mg feeding tube QHS anti 12/24/24 12/12/24 20:59 Rx depressant 30 days #30 tabs sertraline 100 mg tablet 100 mg feeding tube DAILY 12/24/24 Unknown Rx DEPRESSION 30 days #30 tabs thiamine HCl (vitamin B1) 100 mg 100 mg G-tube BREAKFAST supplement 12/24/24 Unknown Rx tablet #0 tabs hydralazine 25 mg tablet 25 mg G-tube TID blood pressure 01/03/25 Unknown History atorvastatin 40 mg tablet 40 mg G-tube QHS hld #0 tabs 01/08/25 Unknown Rx apixaban 5 mg tablet (Eliquis) 2.5 mg G-tube BID blood thinner 05/03/25 Unknown History bisacodyl 10 mg rectal suppository 10 mg RI PRN bowel movement 05/12/25 Unknown History glucagon 1 mg solution for 1 mg IM Q20M PRN hypoglycemia 05/12/25 Unknown History injection (Glucagon Emergency Kit) guaifenesin 100 mg/5 mL oral 200 mg PO Q4H PRN congestion/COUGH 05/12/25 Unknown History liquid (Adult Wal-Tussin) magnesium hydroxide 400 mg/5 mL 30 ml feeding tube DAILY PRN bowel 05/12/25 Unknown History oral suspension (Gentle Laxative movement (magnesium hydroxide)) metoprolol tartrate 50 mg tablet 50 mg feeding tube BID heart 05/12/25 Unknown History tamsulosin 0.4 mg capsule 0.4 mg PO QHS bph 05/12/25 Unknown History acetaminophen 325 mg tablet 650 mg feeding tube Q4H PRN Pain 06/09/25 Unknown History 1-10 Or Fever>100.7 acetaminophen 650 mg rectal 650 mg RI Q4H PRN fever or pain 06/09/25 Unknown History suppository albuterol sulfate 2.5 mg/3 mL 2.5 mg inhalation Q6H PRN copd 06/09/25 Unknown History (0.083 %) solution for nebulization aluminum-magnesium hydroxide 200 30 ml feeding tube Q4H PRN gi 06/09/25 Unknown History mg-200 mg/5 mL oral suspension distress amlodipine 10 mg tablet 10 mg G-tube DAILY HTN 06/09/25 Unknown History clonidine 0.2 mg/24 hr weekly 0.2 mg transdermal MO blood 06/09/25 06/09/25 History transdermal patch pressure ergocalciferol (vitamin D2) 1,250 1,250 mcg feeding tube Q7D 06/09/25 06/09/25 History mcg (50,000 unit) capsule (Vitamin SUPPLEMENT D2) guaifenesin 400 mg tablet (Chest 400 mg PO TID PRN congestion/cough 06/09/25 Unknown History Congestion Relief) hydroxyzine HCl 25 mg tablet 50 mg PO Q8H PRN agitation 06/09/25 Unknown History ipratropium 0.5 mg-albuterol 3 mg 3 ml inhalation Q6H PRN copd 06/09/25 Unknown History (2.5 mg base)/3 mL nebulization soln loperamide 2 mg capsule (Imodium 2 mg feeding tube DAILY PRN loose 06/09/25 Unknown History A-D) stool lorazepam 0.5 mg tablet (Ativan) 0.5 mg PO Q8H PRN agitation/ 06/09/25 06/09/25 04:00 History anxiety losartan 100 mg tablet 100 mg feeding tube QHS Blood 06/09/25 Unknown History Held on 05/17/25. pressure Instructions: Resume on 05/20/25. omeprazole 2 mg-sodium bicarbonate 10 ml feeding tube BID gerd 06/09/25 Unknown History 84 mg/mL oral suspension sodium phosphates 19 gram-7 118 ml RI DAILY PRN constipation 06/09/25 Unknown History gram/118 mL enema (Enema) valproic acid (as sodium salt) 250 125 mg feeding tube TID seizures 06/09/25 Unknown History mg/5 mL oral solution Allergy/AdvReac Type Severity Reaction Status Date / Time No Known Allergies Allergy Verified 06/09/25 11:39 Family History Mother Heart disease CVA (cerebral vascular accident) Hypertension Father Heart disease CVA (cerebral vascular accident) Hypertension Surgical History S/P arterial stent History of appendectomy Social History household members: caregiver housing: retirement 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 Smoking Status: Light Smoker (<10/day) alcohol intake: former details: Former alcoholic quit several years ago substance use type: does not use caffeine: Yes Type: coffee Number of servings: 3 EXAM Physical Exam Const Vital Signs: 06/09/25 11:35 06/09/25 11:46 06/09/25 11:49 Temperature 98 F 98.0 F Temperature Source Temporal Axillary Pulse Rate 62 60 Respiratory Rate 32 H 41 H Respiratory Effort Short of Breath Labored Respiratory Depth Deep Respiratory Pattern Tachypnea Blood Pressure 142/66 H 137/61 H Blood Pressure Mean 91 86 Pulse Ox 97 99 Oxygen Delivery Method Nasal Cannula Nasal Cannula Room Air Oxygen Flow Rate (L/min) 2 3 06/09/25 12:34 06/09/25 12:37 06/09/25 12:39 Temperature 98.2 F Temperature Source Axillary Pulse Rate 61 61 Respiratory Rate 26 H 25 H Respiratory Effort Respiratory Depth Respiratory Pattern Blood Pressure 99/57 L 99/57 L Blood Pressure Mean 71 71 Pulse Ox 98 98 99 Oxygen Delivery Method Room Air Nasal Cannula Nasal Cannula Oxygen Flow Rate (L/min) 2 2 06/09/25 13:00 06/09/25 14:00 Temperature 97.9 F 97.9 F Temperature Source Axillary Oral Pulse Rate 64 82 Respiratory Rate 14 33 H Respiratory Effort Respiratory Depth Respiratory Pattern Blood Pressure 134/65 H 123/67 H Blood Pressure Mean 87 76 Pulse Ox 98 98 Oxygen Delivery Method Nasal Cannula Nasal Cannula Oxygen Flow Rate (L/min) 2 2 MDM MDM MDM Narrative Medical decision making narrative: History taken by medical record as well as report. 75-year-old male with history of proximal A-fib on Eliquis, prior CVA with significant deficits including PAD and alert and oriented x 1 (per report), seizures, COPD with chronic respiratory failure on 2 L nasal cannula, GERD presents for evaluation of increased agitation and increased work of breathing. Patient unable to get history due to his baseline mental status. On presentation he is agitated and tachypneic. Per care facility patient has been more combative and agitated. He refuses to wear his oxygen in which it leads to hypoxia. He was given Ativan last at 4 AM. Patient is DNR CCA. His POA recently and his next kin is his daughter. I did contacted her over the telephone. She confirmed that patient is DNR CCA. However if intubation is required for respiratory status she would like this performed. I also spoke with the patient's brother over the telephone as I originally could not get a hold of the daughter. He states if it was up to him he would prefer comfort cares but that the daughter is to make decision. Given patient's tachypnea and agitation, we did attempt BiPAP. Patient immediately took this off and became combative. Will monitor for now. May require intubation. Ativan given for agitation. Differential diagnosis includes but is not limited to COPD exacerbation, viral illness, hypercapnia, pneumonia, electrolyte abnormality, dehydration, UTI. Small NS bolus ordered with Solu-Medrol and DuoNebs. VBG without hypercapnia. Will monitor. CBC without leukocytosis. Patient has baseline anemia. Coagulation panel unremarkable. CMP shows mild dehydration without FLEX. Troponin 41 and 35. Patient not endorsing any chest pain. On chart review, patient's troponins have been in this range before. Lactic acid unremarkable. Chest x-ray was personally viewed and interpreted by me, ED physician. Possible pneumonia in the left lung. No effusion, cardiomegaly, pneumothorax. Radiology in agreement. Will give Rocephin and azithromycin for suspected community-acquired pneumonia. COVID COVID, flu, RSV negative. On reevaluation, patient is still intermittently tachypneic. Still shortness of breath. I do feel that his tachypnea is more related to agitation as tachypnea improves when not bothered. I updated the patient's daughter on the results of the plan for admission. She confirmed understanding. Patient was discussed with hospitalist who accepted admission. EKG: Interpreted by me/EM physician: EKG shows sinus tachycardia with nonspecific ST changes. Heart rate 115. Artifact. Difficult to obtain due to patient's movement. Impression: 1. Pneumonia 2. COPD exacerbation 3. Agitation 4. Elevated troponin Lab Data Labs: Laboratory Results - last 24 hr 06/09/25 11:45 WBC 9.0 RBC 3.81 L Hgb 9.5 L Hct 31.2 L MCV 81.9 MCH 24.9 L MCHC 30.4 L RDW Std Deviation 54.2 H RDW Coeff of Aly 18.2 H Plt Count 391 MPV 10.1 Immature Gran % (Auto) 0.300 Neut % (Auto) 79.2 H Lymph % (Auto) 6.8 L [place] % (Auto) 8.9 Eos % (Auto) 3.8 Baso % (Auto) 1.0 Absolute Neuts (auto) 7.1 Absolute Lymphs (auto) 0.61 L Nucleated RBC % 0 PT 13.1 INR 1.0 APTT 31.6 Sodium 132 L Potassium 4.7 Chloride 94 L Carbon Dioxide 28.8 Anion Gap 9 BUN 26 H Creatinine 0.91 Estim Creat Clear Calc 65.64 Est GFR (MDRD) Non-Af 88 BUN/Creatinine Ratio 28.3 H Glucose 132 H Lactic Acid 1.2 Calcium 9.1 Phosphorus 2.8 Magnesium 2.0 Total Bilirubin 0.17 AST 23 ALT 20 Alkaline Phosphatase 104 Troponin T High Sens 41 H D Total Protein 6.5 Albumin 3.6 Globulin 2.9 Albumin/Globulin Ratio 1.3 Procalcitonin 0.09 ABG Data ABG results: ABG 06/09/25 12:58 Specimen Type LASHAE Sample Site Not entered O2 % 2.0 VBG pH 7.40 VBG pO2 48 H VBG HCO3 29 H VBG Total CO2 30 VBG O2 Sat (Calc) 83 H VBG Base Excess 4 H POC Mix VBG pCO2 Pt Tmp 46.0 O2 Delivery Device Cannula Radiography Diagnostic Testing: Clinical Impression(s) from Imaging Studies Chest X-Ray 06/09/25 12:06 IMPRESSION: Possible left pneumonia. Resolved right opacity. Reading Location: [facility] Discharge Plan Disposition Disposition: Acute Care Hospital [facility] Discharge Date/Time: 06/09/25 14:54
[2025-06-09 15:51] LABS: Magnesium 2.0 mg/dL (1.5-2.2); Procalcitonin 0.09 ng/mL (<=0.10)
--- NOTE | 2025-06-09 16:09 | PCM.RX.CS ---
Consult Antibiotic Management Pharmacy has been consulted to manage selected antibiotic: Vancomycin Type of Intervention Type of Consult: New start Suspected Infection Suspected Infection: Pneumonia Prior Doses of Antibiotics Prior Doses of Antibiotics Received/Current Regimen: Vancomycin 1750 mg IV x 1 ordered plus piperacillin/tazobactam 3.375 grams Q8H Labs Labs: Sodium 132 mmol/L (133-145) L 06/09/25 11:45 Potassium 4.7 mmol/L (3.3-5.1) 06/09/25 11:45 Chloride 94 mmol/L (98-108) L 06/09/25 11:45 Carbon Dioxide 28.8 mmol/L (21.0-32.0) 06/09/25 11:45 Anion Gap 9 (5-15) 06/09/25 11:45 BUN 26 mg/dL (4-19) H 06/09/25 11:45 Creatinine 0.91 mg/dL (0.70-1.20) 06/09/25 11:45 Est GFR (MDRD) Non-Af 88 (>60) 06/09/25 11:45 BUN/Creatinine Ratio 28.3 RATIO (10-20) H 06/09/25 11:45 Glucose 132 mg/dL (70-99) H 06/09/25 11:45 Microbiology Microbiology: Microbiology 06/09/25 13:00 Mucosa - Nose SARS-CoV-2, Influenza & RSV (PCR) - Final Dosing Weight Weight used for dosin kg Estimated Creatinine Clearance Estimated Creatinine Clearance: ~ 66 Goal Trough Goal Trough: 15-20 mcg/mL Pharmacy Plan for Drug Dosing Pharmacy Plan for Drug Dosing: Vancomycin 1750 mg IV x 1 followed by 750 mg Q12H Pharmacy Service will continue to monitor and adjust dosing as required. Follow-Up Labs Follow-Up Labs: Trough: Vancomycin Date/Time Labs Ordered Labs to be done on [date and time ordered]: 06/11/25 @ 0432
[2025-06-09] MEDS: Vancomycin HCl 1,750 MG in 0.9% Normal Saline (500mL Bag) 500 ML 250 MG IV (16:21)
[2025-06-09] MEDS: carBAMazepine 200 MG/10 ML UDC (WCH) GT ×2 (18:33→22:47)
--- NOTE | 2025-06-09 21:00 | NURSING ---
BP 150/120, administered multiple bp meds. Will recheck bp and continue to monitor
[2025-06-09] MEDS: Piperacil/Tazobactam 3.375 GM in 0.9% Normal Saline (50mL MB+) 50 ML IV (22:38)
[2025-06-09] MEDS: APIXABAN 2.5 MG TABLET (WCH) GT (22:45)
[2025-06-09] MEDS: 0.9% Saline Lock 10 ML Syringe IV (23:18)
[2025-06-10] VITALS (15 sets, daily range): BP systolic 121–151; BP diastolic 65–87; PULSE 65–98; RESP 16–22; TEMP 36.4–36.7; O2SAT 2–98; BMI 18.5
[2025-06-10] MEDS: Vancomycin HCl 750 MG in 0.9% Normal Saline (250mL Bag) 250 ML 250 MG IV (04:45)
[2025-06-10] MEDS: Piperacil/Tazobactam 3.375 GM in 0.9% Normal Saline (50mL MB+) 50 ML IV (06:26)
[2025-06-10 07:03] LABS: Hematocrit 27.0 % (40-54); Hemoglobin 8.3 g/dL (13.0-16.5); Immature Granulocytes Count 0.020 X10^3/uL (0.0-0.0); Mean Corp Hgb Conc 30.7 g/dL (32-36); Mean Corpuscular Volume 82.3 fL (80-94); Mean Platelet Vol. 10.4 fl (6.2-12.0); NRBC Flagged by Analyzer 0 % (0-5); Platelet Count 365 K/mm3 (150-450); RBC Distribution Width CV 18.4 % (11.6-14.6); RBC Distribution Width SD 54.8 fl (35.1-43.9); Red Blood Count 3.28 M/mm3 (4.6-6.2); White Blood Count 7.7 K/mm3 (4.4-11.0)
[2025-06-10 07:34] LABS: AST(SGOT) 24 U/L (<=37); Alanine Aminotransfer ALT/SGPT 19 U/L (<=46); Albumin, Serum 3.3 g/dL (3.4-4.8); Alkaline Phosphatase 85 U/L (40-129); Anion Gap 12 (7-18); BUN 19 mg/dL (4-19); BUN/Creat Ratio 20.3 RATIO (10-20); Calcium,Total 8.7 mg/dL (7.6-11.0); Carbon Dioxide 23.8 mmol/L (20.0-29.0); Chloride 100 mmol/L (96-106); Estimated Creatinine Clearance 59.90 ml/min (50-250); Globulin 2.8 g/dL (2.2-4.2); Glucose 94 mg/dL (70-99); Potassium 4.4 mmol/L (3.5-5.1)
--- NOTE | 2025-06-10 07:56 | PN.HOSP_ITS ---
Reason for Visit Chief Complaint: Hypoxic at [facility]. Subjective Subjective Confused. Pulling off his oxygen. Objective Data Objective Data Vital Signs: Vital Signs Temp Pulse Resp BP Pulse Ox O2 Del Method O2 Flow Rate 36.7 C 70 20 H 151/70 H 91 Nasal Cannula 2 06/10/25 04:00 06/10/25 06:25 06/10/25 04:00 06/10/25 04:00 06/10/25 04:00 06/10/25 04:00 06/10/25 04:00 Oxygen Flow Rate (L/min) 2 Oxygen Delivery Method Nasal Cannula Weight: 62 kg Body Mass Index (BMI) 18.5 Intake & Output: Intake and Output for Last 24 Hours 06/08/25 06/09/25 06/10/25 23:59 23:59 23:59 Intake Total 1335 / 1335 315 / 315 Output Total 350 / 350 Balance 1335 / 1335 -35 / -35 Lab / Micro Data 06/10/25 06:19 06/10/25 06:19 Labs: Laboratory Results - last 24 hr 06/09/25 11:45: WBC 9.0, RBC 3.81 L, Hgb 9.5 L, Hct 31.2 L, MCV 81.9, MCH 24.9 L , MCHC 30.4 L, RDW Std Deviation 54.2 H, RDW Coeff of Aly 18.2 H, Plt Count 391, MPV 10.1, Immature Gran % (Auto) 0.300, Neut % (Auto) 79.2 H, Lymph % (Auto) 6.8 L, Motley % (Auto) 8.9, Eos % (Auto) 3.8, Baso % (Auto) 1.0, Absolute Neuts (auto) 7.1, Absolute Lymphs (auto) 0.61 L, Nucleated RBC % 0, PT 13.1, INR 1.0, APTT 31.6, Sodium 132 L, Potassium 4.7, Chloride 94 L, Carbon Dioxide 28.8, Anion Gap 9, BUN 26 H, Creatinine 0.91, Estim Creat Clear Calc 65.64, Est GFR (MDRD) Non- Af 88, BUN/Creatinine Ratio 28.3 H, Glucose 132 H, Lactic Acid 1.2, Calcium 9.1, Phosphorus 2.8, Magnesium 2.0, Total Bilirubin 0.17, AST 23, ALT 20, Alkaline Phosphatase 104, Troponin T High Sens 41 H D, Total Protein 6.5, Albumin 3.6, Globulin 2.9, Albumin/Globulin Ratio 1.3, Procalcitonin 0.09 06/09/25 14:15: Troponin T Hi Sens 2 Hr 35 H 06/10/25 06:19: WBC 7.7, RBC 3.28 L, Hgb 8.3 L, Hct 27.0 L, MCV 82.3, MCH 25.3 L , MCHC 30.7 L, RDW Std Deviation 54.8 H, RDW Coeff of Aly 18.4 H, Plt Count 365, MPV 10.4, Immature Gran % (Auto) 0.300, Neut % (Auto) 85.7 H, Lymph % (Auto) 10.1 L, Motley % (Auto) 3.5, Eos % (Auto) 0.0, Baso % (Auto) 0.4, Absolute Neuts (auto) 6.6, Absolute Lymphs (auto) 0.78 L, Nucleated RBC % 0, Sodium 136, Potassium 4.4, Chloride 100, Carbon Dioxide 23.8, Anion Gap 12, BUN 19, Creatinine 0.92, Estim Creat Clear Calc 59.90, Est GFR (MDRD) Non-Af 86, B UN/Creatinine Ratio 20.3 H, Glucose 94, Calcium 8.7, Total Bilirubin 0.16, AST 24, ALT 19, Alkaline Phosphatase 85, Total Protein 6.1, Albumin 3.3 L, Globulin 2.8, Albumin/Globulin Ratio 1.2 Micro: Microbiology 06/09/25 18:40 Nasal Secretion MRSA (PCR) - Final 06/09/25 15:35 Mucosa - Nasopharyngeal Respiratory Panel (PCR) - Final 06/09/25 13:00 Mucosa - Nose SARS-CoV-2, Influenza & RSV (PCR) - Final ABG Data ABG results: ABG 06/09/25 12:58 Specimen Type LASHAE Sample Site Not entered O2 % 2.0 VBG pH 7.40 VBG pO2 48 H VBG HCO3 29 H VBG Total CO2 30 VBG O2 Sat (Calc) 83 H VBG Base Excess 4 H POC Mix VBG pCO2 Pt Tmp 46.0 O2 Delivery Device Cannula Radiography Diagnostic Testing: Radiology Impression Chest X-Ray 06/09/25 12:06 IMPRESSION: Possible left pneumonia. Resolved right opacity. Reading Location: [facility] Patient's Goals Of Care - F/U Goals Reviewed Goals of care reviewed with patient: Unable to assess Physical Exam Const Constitutional Narrative: Lying in bed. Awake. Off of the oxygen but no respiratory distress. Does not replace the oxygen on him but I required him to turn his head to the left but he was unable to follow those commands. HEENT head/scalp atraumatic and moist oral mucous membranes Resp Resp Narrative: Limited due to poor inspiratory efforts but otherwise clear from what I can auscultate. Cardio regular rate, regular rhythm, S1 normal heart sound and S2 normal heart sound GI normal to inspection, nondistended, normoactive bowel sounds Extremity normal to inspection Assessment & Plan Assessment/Plan (1) COPD exacerbation: PLAN: Plan Hypoxia * Patient with chronic respiratory failure on oxygen. Has remained stable here on 2 L actually has had prior the time with his oxygenation being off. Not sure the patient actually has pneumonia. * Is MRSA swab was negative, respiratory panel negative, COVID, influenza and RSV negative. * I am going to discontinue antibiotics and observe him. * continue on ATC duonebs, PRN albuterol, IV methylprednisolone, will initiate and maintain on IV Zosyn as well as IV vancomycin with MRSA screen * PT/OT/ST/case management consulted for discharge planning. Chronic medical conditions: * Hx CVA with history of bilateral carotid stenosis: Patient with chronic aphasia, R sided hemiplegia, dysphagia with PEG tube, maintained on aspiration/fall precautions, continue tube feeds per home regimen once clarified, continue Eliquis, statin, hypertensive regimen as noted. * PAD: Will continue patient Eliquis, statin, hypertensive regimen as noted. * Hypertension: Continue home regimen including amlodipine, clonidine, hydralazine, losartan, metoprolol with hold parameters as needed, PRN hydralazine. * Hyperlipidemia: Will continue home statin therapy. * Chronic Kidney Disease Stage II per GFR trending: Admission BUN/Cr 26/0.91, GFR 88, baseline renal function 1.1-1.2, will repeat BMP in AM. * Chronic normocytic anemia/iron deficient anemia: Admission hemoglobin 9.5, 81.9, baseline hemoglobin 9-10, will continue to trend. * PAF: Will continue patient home metoprolol and Eliquis regimen. * Anxiety and depression: Will continue patient home sertraline and mirtazapine home regimen. Continue low dose as needed ativan and also hydroxyzine. May need to consider low dose risperidol also. * BPH with obstructive pathology: Will continue patient on Flomax home regimen, previously also been noted to be on finasteride but not currently listed. * GERD: Will continue patient on PPI. * Seizure disorder: Continue home valproic acid as well as carbamazepine home regimen. * PJ: Noncompliant with PAP therapy, will continue supplemental oxygen, chronically on 2 L nasal cannula as noted. * Dysphagia: chronic. NPO at baseline. Nutrition to assist with tube feeds. DVT prophylaxis: Will continue patient home Eliquis regimen. CODE status: Full code. Charges/Coding Visit Charges Inpatient E&M: 18013 Subs Hosp L2
[2025-06-10] MEDS: Thiamine Hydrochloride 100 MG Tablet GT (08:38)
[2025-06-10] MEDS: carBAMazepine 200 MG/10 ML UDC (WCH) GT ×4 (09:41→22:19)
[2025-06-10] MEDS: APIXABAN 2.5 MG TABLET (WCH) GT ×2 (09:42→22:22)
--- NOTE | 2025-06-10 09:54 | CASEMGMT ---
Social Work Pt admitted from [facility]. left for pt CARIDAD Vail to verify if plan is for pt to return to [facility] [place]. SW will await return call. SHANE Tinoco
--- NOTE | 2025-06-10 13:40 | CASEMGMT ---
Social work SW received a voicemail from [facility] with [employer] that was left at [phone]. Per VM, [facility] was requesting a phone call back regarding patient due to patient having an active court case pending and patient's daughter being involved to some extent with [employer] as well. SW called [employer] back (ph: [phone]) at [phone] when VM was received and had to leave a VM for [facility]. SW stated in this VM that patient was on PCU; SW awaiting return call at this time. Ana Liz, RN DIALYSIS, MUSIC COPYIST
--- NOTE | 2025-06-10 14:09 | CASEMGMT ---
Addendum entered by Jacquie Michaud 06/11/25 07:56: Pt is a bedhold and can return when medically ready. Original Note: Discharge Planning Updates sent via [employer] with note that pt may return today. Call placed earlier to discuss difference in EC's. [facility] has pts brother listed while we have pts daughter who is also an alternative HC POA. [facility] states that they are applying for emergency guardianship and were not aware that pts daughter was listed as an alternate for HC POA. Copy sent via [employer]. Jacquie Michaud DC Planning Asst.
[2025-06-10] MEDS: Jevity 1.5. 1,000 ML Bottle 275 ML GT ×3 (15:48→22:24)
[2025-06-10 15:49] LABS: Mucous, Urine 0 SEEN /hpf (<or=2+); Red Blood Cells-Urine 0 SEEN /hpf (0-5); Squamous Epithelial Cells - UA 0 SEEN /hpf (0-5)
[2025-06-10 15:51] LABS: Color, Urine Yellow (Yellow); Glucose, Dipstick Normal (Normal); Ketone-Dipstick Negative (Negative); Leukocyte Esterase-Dipstick 25 /ul (Negative); Nitrite-Dipstick Negative (Negative); Occult Blood-Urine Negative /ul (Negative); Protein-Dipstick Negative (Negative); Specific Gravity, Urine 1.005 (1.002-1.030); Urine Bilirubin Dipstick Negative (Negative)
--- NOTE | 2025-06-10 15:57 | CASEMGMT ---
Social Work SW received return call from pt's dgt Michelle who confirms plan is for pt to return to [facility]. [facility] is able to accept pt back when medically ready. Physician updated. NATHANIEL received a phone call from Nahed at [employer]. Nahed states [employer] is involved with pt care and if pt's dgt attempts to take pt home from [facility], [facility] will become involved to keep pt there for pt's safety. NATHNAIEL reported that valeri states plan is for pt to return to [facility] when medically ready. Nahed requests a return call if this plan changes. Plan: Return to [facility], when medically ready SHANE Butts
--- NOTE | 2025-06-10 16:51 | NURSING ---
patients daughter peewee is updated on the plan of care
[2025-06-10] MEDS: 0.9% Saline Lock 10 ML Syringe IV (17:38)
--- NOTE | 2025-06-10 17:47 | NURSING ---
patient has been combative and uncooperative with staff removing monitoring equip/oxygen patient attempts to reorient are futile patient has injured himself tearing skin and continuous to try to climb out of bed. nursing staff stays with him for approx 30 min until medications given take effect see mar for details. patient is not combative at this time but is still restless after medication. will continue to monitor pt.
[2025-06-11] VITALS (7 sets, daily range): BP systolic 145–170; BP diastolic 64–70; PULSE 72–78; RESP 18–20; TEMP 36.5–36.6; O2SAT 92–94; BMI 18.3
[2025-06-11 05:10] LABS: Hematocrit 27.2 % (40-54); Hemoglobin 8.2 g/dL (13.0-16.5); Immature Granulocytes Count 0.020 X10^3/uL (0.0-0.0); Mean Corp Hgb Conc 30.1 g/dL (32-36); Mean Corpuscular Volume 81.9 fL (80-94); Mean Platelet Vol. 9.8 fl (6.2-12.0); NRBC Flagged by Analyzer 0 % (0-5); Platelet Count 390 K/mm3 (150-450); RBC Distribution Width CV 18.4 % (11.6-14.6); RBC Distribution Width SD 54.4 fl (35.1-43.9); Red Blood Count 3.32 M/mm3 (4.6-6.2); White Blood Count 7.1 K/mm3 (4.4-11.0)
[2025-06-11] MEDS: Jevity 1.5. 1,000 ML Bottle 275 ML GT ×2 (05:22→08:41)
[2025-06-11 05:59] LABS: Anion Gap 9 (7-18); BUN 20 mg/dL (4-19); BUN/Creat Ratio 19.9 RATIO (10-20); Calcium,Total 8.6 mg/dL (7.6-11.0); Carbon Dioxide 27.1 mmol/L (20.0-29.0); Chloride 101 mmol/L (96-106); Estimated Creatinine Clearance 55.11 ml/min (50-250); Glucose 108 mg/dL (70-99); Potassium 4.4 mmol/L (3.5-5.1)
--- NOTE | 2025-06-11 08:06 | PN.HOSP_ITS ---
Reason for Visit Chief Complaint: Hypoxic at SNF. Subjective Subjective Patient remains confused and takes his oxygen off at times and oxygen drops down to the 70s and then recovers when he is placed back on his oxygen. Objective Data Objective Data Vital Signs: Vital Signs Temp Pulse Resp BP Pulse Ox O2 Del Method O2 Flow Rate 36.5 C L 72 18 170/64 H 94 Nasal Cannula 4 06/11/25 05:15 06/11/25 05:22 06/11/25 05:15 06/11/25 05:22 06/11/25 07:13 06/11/25 07:13 06/11/25 07:13 Oxygen Flow Rate (L/min) 4 Oxygen Delivery Method Nasal Cannula Weight: 61.5 kg Body Mass Index (BMI) 18.3 Intake & Output: Intake and Output for Last 24 Hours 06/09/25 06/10/25 06/11/25 23:59 23:59 23:59 Intake Total 1335 / 1335 810 / 810 Output Total 352 / 352 Balance 1335 / 1335 458 / 458 Medical Nutrition Assessment Dietitian: Malnutrition Criteria Met Start: 06/10/25 12:46 Freq: Status: Active Protocol: Document 06/10/25 12:46 SB (Rec: 06/10/25 12:47 SB [id number]) Nutrition Malnutrition Evidence of Yes Malnutrition Exists Evidenced By Weight Loss (Severe),Physical Changes (Severe) Clinical Problem Chronic Disease or Condition Related Malnutrition Etiology severe malnutrition related to inadequate energy intake and swallowing difficulty Signs/Symptoms as evidenced by 9kg (15%) weight loss x 5 months and severe fat/muscle loss noted in the orbital, temporal, and clavicle region; BMI 18.5kg/m2. 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 Status Active Problem Recommendation Dietitian 1. Pt receives 100% of nutrition via PEG. Recommendations/ 2. Will order Jevity 1.5Cal 275mL bolus feedings 5x Changes daily with 85mL water flush before and after each feeding. 3. Will monitor weight trends, labs, and pt tolerance to tube feeding. Lab / Micro Data 06/11/25 04:32 06/11/25 04:32 Labs: Laboratory Results - last 24 hr 06/09/25 15:45: Urine Color Yellow, Urine Clarity Clear, Urine pH 7.0, Ur Specific [place] 1.005, Urine Protein Negative, Urine Glucose (UA) Normal, Urine Ketones Negative, Urine Occult Blood Negative, Urine Nitrite Negative, Urine Bilirubin Negative, Urine Urobilinogen Normal, Ur Leukocyte Esterase 25 H, Urine RBC 0 SEEN, Urine WBC 0-5 SEEN, Ur Squamous Epith Cells 0 SEEN, Urine Bacteria 0 SEEN, Urine Mucus 0 SEEN 06/11/25 04:32: WBC 7.1, RBC 3.32 L, Hgb 8.2 L, Hct 27.2 L, MCV 81.9, MCH 24.7 L , MCHC 30.1 L, RDW Std Deviation 54.4 H, RDW Coeff of Aly 18.4 H, Plt Count 390, MPV 9.8, Immature Gran % (Auto) 0.300, Neut % (Auto) 86.3 H, Lymph % (Auto) 8.6 L, [place] % (Auto) 4.1, Eos % (Auto) 0.0, Baso % (Auto) 0.7, Absolute Neuts (auto) 6.1, Absolute Lymphs (auto) 0.61 L, Nucleated RBC % 0, Sodium 138, Potassium 4.4, Chloride 101, Carbon Dioxide 27.1, Anion Gap 9, BUN 20 H, Creatinine 1.00, Estim Creat Clear Calc 55.11, Est GFR (MDRD) Non-Af 78, BUN/Creatinine Ratio 19.9, Glucose 108 H, Calcium 8.6 Micro: Microbiology 06/09/25 18:40 Nasal Secretion MRSA (PCR) - Final 06/09/25 15:35 Mucosa - Nasopharyngeal Respiratory Panel (PCR) - Final 06/09/25 13:00 Mucosa - Nose SARS-CoV-2, Influenza & RSV (PCR) - Final Patient's Goals Of Care - F/U Goals Reviewed Goals of care reviewed with patient: Unable to assess Physical Exam Const Constitutional Narrative: Confused. Does not follow commands. Afebrile. No respiratory distress. No conversational dyspnea. Resp Resp Narrative: Poor inspiratory effort but otherwise clear Cardio regular rate, regular rhythm, S1 normal heart sound and S2 normal heart sound GI normal to inspection, nondistended, normoactive bowel sounds, soft to palpation, non-tender and non-distended Assessment & Plan Assessment/Plan (1) COPD exacerbation: PLAN: Plan Hypoxia * Patient with chronic respiratory failure on oxygen. Patient takes his oxygen off and becomes hypoxic and improves when his oxygen is placed back on. Tolerates nasal cannula 2 L. Patient was observed off of antibiotics and has fared well so I do not feel the patient actually has pneumonia. Additionally has not had any fevers nor leukocytosis to support an active infection. Patient will be discharged back to his facility. * Will try quetiapine nightly to see if that may help calm him so that he can tolerate his oxygen better. Will start him on a low-dose of 25 mg nightly. His hypoxia from our observation at least while in the hospital as he has been more behavioral with him taking off the oxygen does not require further inpatient treatment. Patient to be discharged back to his facility in stable condition. Further goals of care will need to be addressed with his family in regards to ongoing aggressiveness of care as he is currently still full code. He has very poor performance status at baseline. Chronic medical conditions: * Hx CVA with history of bilateral carotid stenosis: Patient with chronic aphasia, R sided hemiplegia, dysphagia with PEG tube, maintained on aspiration/fall precautions, continue tube feeds per home regimen once clarified, continue Eliquis, statin, hypertensive regimen as noted. * PAD: Will continue patient Eliquis, statin, hypertensive regimen as noted. * Hypertension: Continue home regimen including amlodipine, clonidine, hydralazine, losartan, metoprolol with hold parameters as needed, PRN hydralazine. * Hyperlipidemia: Will continue home statin therapy. * Chronic Kidney Disease Stage II per GFR trending: Admission BUN/Cr 26/0.91, GFR 88, baseline renal function 1.1-1.2, will repeat BMP in AM. * Chronic normocytic anemia/iron deficient anemia: Admission hemoglobin 9.5, 81.9, baseline hemoglobin 9-10, will continue to trend. * PAF: Will continue patient home metoprolol and Eliquis regimen. * Anxiety and depression: Will continue patient home sertraline and mirtazapine home regimen. Continue low dose as needed ativan and also hydroxyzine. May need to consider low dose risperidol also. * BPH with obstructive pathology: Will continue patient on Flomax home regimen, previously also been noted to be on finasteride but not currently listed. * GERD: Will continue patient on PPI. * Seizure disorder: Continue home valproic acid as well as carbamazepine home regimen. * PJ: Noncompliant with PAP therapy, will continue supplemental oxygen, chronically on 2 L nasal cannula as noted. * Dysphagia: chronic. NPO at baseline. Nutrition to assist with tube feeds. DVT prophylaxis: Will continue patient home Eliquis regimen. CODE status: Full code.
[2025-06-11] MEDS: Thiamine Hydrochloride 100 MG Tablet GT (08:12)
[2025-06-11] MEDS: carBAMazepine 200 MG/10 ML UDC (WCH) GT (08:13)
[2025-06-11] MEDS: APIXABAN 2.5 MG TABLET (WCH) GT (08:14)
[2025-06-11] MEDS: 0.9% Saline Lock 10 ML Syringe IV (08:40)
--- NOTE | 2025-06-11 08:40 | CPS ---
patient is combative and non compliant. Patient will not wear nasal canula or oxygen. Patient was advised that he needs to wear his Oxygen.
--- NOTE | 2025-06-11 10:52 | TREXTCAR_ITS ---
Diet Diet Order/Speech Therapy: INPATIENT Hospital Diet / Speech Therapy Order(s) 06/09/25 15:02 Diet: Nothing Per Oral Routine Orders/Code Status Code Status: Full Code DC O2, CPAP, BIPAP needs Home O2 Discharge instructions: Yes Type of respiratory needs?: Oxygen Oxygen frequency: Continuous Continuous oxygen liters per minute: 2 Wound(s) left forearm: Wound Type: Skin Tear Therapies Weight Bearing: Full weight bearing Physical Therapy: Eval and Treat Occupational Therapy: Eval and Treat Problem/Diagnosis (1) COPD exacerbation: Status: Chronic Code(s): J44.1 - Chronic obstructive pulmonary disease with (acute) exacerbation Plan Hypoxia * Patient with chronic respiratory failure on oxygen. Patient takes his oxygen off and becomes hypoxic and improves when his oxygen is placed back on. Tolerates nasal cannula 2 L. Patient was observed off of antibiotics and has fared well so I do not feel the patient actually has pneumonia. Additionally has not had any fevers nor leukocytosis to support an active infection. Patient will be discharged back to his facility. * Will try quetiapine nightly to see if that may help calm him so that he can tolerate his oxygen better. Will start him on a low-dose of 25 mg nightly. His hypoxia from our observation at least while in the hospital as he has been more behavioral with him taking off the oxygen does not require further inpatient treatment. Patient to be discharged back to his facility in stable condition. Further goals of care will need to be addressed with his family in regards to ongoing aggressiveness of care as he is currently still full code. He has very poor performance status at baseline. Chronic medical conditions: * Hx CVA with history of bilateral carotid stenosis: Patient with chronic aphasia, R sided hemiplegia, dysphagia with PEG tube, maintained on aspiration/fall precautions, continue tube feeds per home regimen once clarified, continue Eliquis, statin, hypertensive regimen as noted. * PAD: Will continue patient Eliquis, statin, hypertensive regimen as noted. * Hypertension: Continue home regimen including amlodipine, clonidine, hydralazine, losartan, metoprolol with hold parameters as needed, PRN hydralazine. * Hyperlipidemia: Will continue home statin therapy. * Chronic Kidney Disease Stage II per GFR trending: Admission BUN/Cr 26/0.91, GFR 88, baseline renal function 1.1-1.2, will repeat BMP in AM. * Chronic normocytic anemia/iron deficient anemia: Admission hemoglobin 9.5, 81.9, baseline hemoglobin 9-10, will continue to trend. * PAF: Will continue patient home metoprolol and Eliquis regimen. * Anxiety and depression: Will continue patient home sertraline and mirtazapine home regimen. Continue low dose as needed ativan and also hydroxyzine. May need to consider low dose risperidol also. * BPH with obstructive pathology: Will continue patient on Flomax home regimen, previously also been noted to be on finasteride but not currently listed. * GERD: Will continue patient on PPI. * Seizure disorder: Continue home valproic acid as well as carbamazepine home regimen. * PJ: Noncompliant with PAP therapy, will continue supplemental oxygen, chronically on 2 L nasal cannula as noted. * Dysphagia: chronic. NPO at baseline. Nutrition to assist with tube feeds. DVT prophylaxis: Will continue patient home Eliquis regimen. CODE status: Full code. Allergies/Procedures Done in Hospital Allergies No Known Allergies Allergy (Verified 06/09/25 11:39) Procedures: None Type of Care/Length of Stay Estimated LOS: More Than 30 Days Type of Care Needed: [facility]isted Living Rehab Potential: Poor Prognosis: Poor Additional Orders/Day of Discharge Day of Discharge: 06/11/25 Dietary and Speech Recommendations Dietitian Recommendations/Changes: 1. Pt receives 100% of nutrition via PEG. 2. Will order Jevity 1.5Cal 275mL bolus feedings 5x daily with 85mL water flush before and after each feeding. 3. Will monitor weight trends, labs, and pt tolerance to tube feeding. Discharge Plan Admission Admit Date/Time: 06/09/25 14:12 Primary Reason for Your Visit: hypoxia Attending Provider: Raul Merino Primary Care Provider: Lorraine Mena Consulting Providers: Shilpa Contreras Discharge Orders/Prescriptions Prescriptions: New quetiapine 25 mg tablet 25 mg feeding tube QHS Qty: 30 0RF Continued carbamazepine 100 mg/5 mL Suspension 200 mg G-tube 4X/DAY Qty: 0 0RF thiamine HCl (vitamin B1) 100 mg Tablet 100 mg G-tube BREAKFAST Qty: 0 0RF sertraline 100 mg tablet 100 mg feeding tube DAILY 30 Days Qty: 30 0RF mirtazapine 15 MG tablet 15 mg feeding tube QHS 30 Days Qty: 30 0RF cholecalciferol (vitamin D3) 50 mcg (2,000 unit) tablet 50 mcg feeding tube DAILY 30 Days Qty: 30 0RF hydralazine 25 mg Tablet 25 mg G-tube TID Rx Instructions: Hold for SBP less than 110 atorvastatin 40 mg Tablet 40 mg G-tube QHS Qty: 0 0RF Eliquis 5 mg Tablet 2.5 mg G-tube BID bisacodyl 10 mg suppository 10 mg NV PRN Glucagon Emergency Kit (human) 1 mg recon soln 1 mg IM Q20M PRN (Reason: hypoglycemia) Rx Instructions: until target blood sugar attained tamsulosin 0.4 mg capsule 0.4 mg PO QHS Rx Instructions: give via Peg Tube guaifenesin [Adult Wal-Tussin] 100 mg/5 mL liquid 200 mg PO Q4H PRN (Reason: congestion/COUGH) Rx Instructions: give via Peg-tube metoprolol tartrate 50 mg tablet 50 mg feeding tube BID magnesium hydroxide [Gentle Laxative (mag hydrox)] 400 mg/5 mL suspension 30 ml feeding tube DAILY PRN (Reason: bowel movement) Rx Instructions: notify physician if no BM in 4 days acetaminophen 650 mg suppository 650 mg NV Q4H PRN (Reason: fever or pain) Rx Instructions: do not exceed 4GM in 24 hours acetaminophen 325 mg Tablet 650 mg feeding tube Q4H PRN (Reason: Pain 1-10 Or Fever>100.7) albuterol sulfate 2.5 mg /3 mL (0.083 %) Solution For Nebulization 2.5 mg inhalation Q6H PRN (Reason: copd) amlodipine 10 mg Tablet 10 mg G-tube DAILY aluminum-magnesium hydroxide 200-200 mg/5 mL suspension 30 ml feeding tube Q4H PRN (Reason: gi distress) Enema 19-7 gram/118 mL enema 118 ml NV DAILY PRN (Reason: constipation) Rx Instructions: May use twice per episode if Dulcolax suppository ineffective. guaifenesin [Chest Congestion Relief] 400 mg tablet 400 mg PO TID PRN (Reason: congestion/cough) Rx Instructions: give via peg-tube hydroxyzine HCl 25 mg tablet 50 mg PO Q8H PRN (Reason: agitation) Rx Instructions: start 06/05/25, end 06/19/25 loperamide [Imodium A-D] 2 mg capsule 2 mg feeding tube DAILY PRN (Reason: loose stool) omeprazole-sodium bicarbonate 2-84 mg/mL suspension for reconstitution 10 ml feeding tube BID valproic acid (as sodium salt) 250 mg/5 mL solution 125 mg feeding tube TID ipratropium-albuterol 0.5 mg-3 mg(2.5 mg base)/3 mL Solution For Nebulization 3 ml inhalation Q6H PRN (Reason: copd) clonidine 0.2 mg/24 hr Patch Weekly 0.2 mg transdermal MO losartan 100 mg tablet 100 mg feeding tube QHS ergocalciferol (vitamin D2) [Vitamin D2] 1,250 mcg (50,000 unit) Capsule 1,250 mcg feeding tube Q7D Rx Instructions: on Monday morning lorazepam [Ativan] 0.5 mg tablet 0.5 mg PO Q8H PRN (Reason: agitation/ anxiety) 3 Days Qty: 10 0RF Rx Instructions: start 06/05/25. end 06/19/25 Referrals / Follow Up: Lorraine Mena MD [Primary Care Provider, Internal Medicine] - Within 2 Weeks Disposition Disposition (needs filled in before D/C Order can be placed): NonSkilled NH/Intermed Care
--- NOTE | 2025-06-11 10:58 | DS.PCM_ITS ---
Providers Date of Admission: 06/09/25 Primary Care Physician: Dr. Lorraine Mena MD Reason For Visit: ACUTE ON CHRONIC COPD EXAC, ?PNA Diagnosis Discharge Diagnosis (1) COPD exacerbation: Status: Chronic Code(s): J44.1 - Chronic obstructive pulmonary disease with (acute) exacerbation Plan Hypoxia * Patient with chronic respiratory failure on oxygen. Patient takes his oxygen off and becomes hypoxic and improves when his oxygen is placed back on. Tolerates nasal cannula 2 L. Patient was observed off of antibiotics and has fared well so I do not feel the patient actually has pneumonia. Additionally has not had any fevers nor leukocytosis to support an active infection. Patient will be discharged back to his facility. * Will try quetiapine nightly to see if that may help calm him so that he can tolerate his oxygen better. Will start him on a low-dose of 25 mg nightly. His hypoxia from our observation at least while in the hospital as he has been more behavioral with him taking off the oxygen does not require further inpatient treatment. Patient to be discharged back to his facility in stable condition. Further goals of care will need to be addressed with his family in regards to ongoing aggressiveness of care as he is currently still full code. He has very poor performance status at baseline. Chronic medical conditions: * Hx CVA with history of bilateral carotid stenosis: Patient with chronic aphasia, R sided hemiplegia, dysphagia with PEG tube, maintained on aspiration/fall precautions, continue tube feeds per home regimen once clarified, continue Eliquis, statin, hypertensive regimen as noted. * PAD: Will continue patient Eliquis, statin, hypertensive regimen as noted. * Hypertension: Continue home regimen including amlodipine, clonidine, hydralazine, losartan, metoprolol with hold parameters as needed, PRN hydralazine. * Hyperlipidemia: Will continue home statin therapy. * Chronic Kidney Disease Stage II per GFR trending: Admission BUN/Cr 26/0.91, GFR 88, baseline renal function 1.1-1.2, will repeat BMP in AM. * Chronic normocytic anemia/iron deficient anemia: Admission hemoglobin 9.5, 81.9, baseline hemoglobin 9-10, will continue to trend. * PAF: Will continue patient home metoprolol and Eliquis regimen. * Anxiety and depression: Will continue patient home sertraline and mirtazapine home regimen. Continue low dose as needed ativan and also hydroxyzine. May need to consider low dose risperidol also. * BPH with obstructive pathology: Will continue patient on Flomax home regimen, previously also been noted to be on finasteride but not currently listed. * GERD: Will continue patient on PPI. * Seizure disorder: Continue home valproic acid as well as carbamazepine home regimen. * PJ: Noncompliant with PAP therapy, will continue supplemental oxygen, chronically on 2 L nasal cannula as noted. * Dysphagia: chronic. NPO at baseline. Nutrition to assist with tube feeds. DVT prophylaxis: Will continue patient home Eliquis regimen. CODE status: Full code. Medications at Discharge Home Medications carbamazepine 100 mg/5 mL oral suspension 200 mg (10 mL) G-tube 4X/DAY unspecified convulsions #0 mL 12/24/24 cholecalciferol (vitamin D3) 50 mcg (2,000 unit) tablet 50 mcg feeding tube DAILY SUPPLEMENT 30 days #30 tabs 12/24/24 mirtazapine 15 mg tablet 15 mg feeding tube QHS anti depressant 30 days #30 tabs 12/24/24 sertraline 100 mg tablet 100 mg feeding tube DAILY DEPRESSION 30 days #30 tabs 12/24/24 thiamine HCl (vitamin B1) 100 mg tablet 100 mg G-tube BREAKFAST supplement #0 tabs 12/24/24 hydralazine 25 mg tablet 25 mg G-tube TID blood pressure 01/03/25 atorvastatin 40 mg tablet 40 mg G-tube QHS hld #0 tabs 01/08/25 apixaban 5 mg tablet (Eliquis) 2.5 mg G-tube BID blood thinner 05/03/25 bisacodyl 10 mg rectal suppository 10 mg NM PRN bowel movement 05/12/25 glucagon 1 mg solution for injection (Glucagon Emergency Kit) 1 mg IM Q20M PRN hypoglycemia 05/12/25 guaifenesin 100 mg/5 mL oral liquid (Adult Wal-Tussin) 200 mg PO Q4H PRN congestion/COUGH 05/12/25 magnesium hydroxide 400 mg/5 mL oral suspension (Gentle Laxative (magnesium hydroxide)) 30 ml feeding tube DAILY PRN bowel movement 05/12/25 metoprolol tartrate 50 mg tablet 50 mg feeding tube BID heart 05/12/25 tamsulosin 0.4 mg capsule 0.4 mg PO QHS bph 05/12/25 acetaminophen 325 mg tablet 650 mg feeding tube Q4H PRN Pain 1-10 Or Fever>100.7 06/09/25 acetaminophen 650 mg rectal suppository 650 mg NM Q4H PRN fever or pain 06/09/25 albuterol sulfate 2.5 mg/3 mL (0.083 %) solution for nebulization 2.5 mg inhalation Q6H PRN copd 06/09/25 aluminum-magnesium hydroxide 200 mg-200 mg/5 mL oral suspension 30 ml feeding tube Q4H PRN gi distress 06/09/25 amlodipine 10 mg tablet 10 mg G-tube DAILY HTN 06/09/25 clonidine 0.2 mg/24 hr weekly transdermal patch 0.2 mg transdermal MO blood pressure 06/09/25 ergocalciferol (vitamin D2) 1,250 mcg (50,000 unit) capsule (Vitamin D2) 1,250 mcg feeding tube Q7D SUPPLEMENT 06/09/25 guaifenesin 400 mg tablet (Chest Congestion Relief) 400 mg PO TID PRN congestion/cough 06/09/25 hydroxyzine HCl 25 mg tablet 50 mg PO Q8H PRN agitation 06/09/25 ipratropium 0.5 mg-albuterol 3 mg (2.5 mg base)/3 mL nebulization soln 3 ml inhalation Q6H PRN copd 06/09/25 loperamide 2 mg capsule (Imodium A-D) 2 mg feeding tube DAILY PRN loose stool 06/09/25 losartan 100 mg tablet 100 mg feeding tube QHS Blood pressure 06/09/25 omeprazole 2 mg-sodium bicarbonate 84 mg/mL oral suspension 10 ml feeding tube BID gerd 06/09/25 sodium phosphates 19 gram-7 gram/118 mL enema (Enema) 118 ml NM DAILY PRN constipation 06/09/25 valproic acid (as sodium salt) 250 mg/5 mL oral solution 125 mg feeding tube TID seizures 06/09/25 lorazepam 0.5 mg tablet (Ativan) 0.5 mg PO Q8H PRN agitation/ anxiety 3 days #10 tabs 06/11/25 quetiapine 25 mg tablet 25 mg feeding tube QHS #30 tabs 06/11/25 Hospital Course Operations None Procedures None Medical Records Data Medical Nutrition Assessment Dietitian: Malnutrition Criteria Met Start: 06/10/25 12:46 Freq: Status: Active Protocol: Document 06/10/25 12:46 SB (Rec: 06/10/25 12:47 SB [id number]) Nutrition Malnutrition Evidence of Yes Malnutrition Exists Evidenced By Weight Loss (Severe),Physical Changes (Severe) Clinical Problem Chronic Disease or Condition Related Malnutrition Etiology severe malnutrition related to inadequate energy intake and swallowing difficulty Signs/Symptoms as evidenced by 9kg (15%) weight loss x 5 months and severe fat/muscle loss noted in the orbital, temporal, and clavicle region; BMI 18.5kg/m2. 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 Status Active Problem Recommendation Dietitian 1. Pt receives 100% of nutrition via PEG. Recommendations/ 2. Will order Jevity 1.5Cal 275mL bolus feedings 5x Changes daily with 85mL water flush before and after each feeding. 3. Will monitor weight trends, labs, and pt tolerance to tube feeding. Weight / BMI Weight Weight: 61.5 kg Body Mass Index (BMI) 18.3 ABG / Lab / Microbiology Data 06/11/25 04:32 06/11/25 04:32 Laboratory: Laboratory Results - last 24 hr 06/09/25 15:45: Urine Color Yellow, Urine Clarity Clear, Urine pH 7.0, Ur Specific [place] 1.005, Urine Protein Negative, Urine Glucose (UA) Normal, Urine Ketones Negative, Urine Occult Blood Negative, Urine Nitrite Negative, Urine Bilirubin Negative, Urine Urobilinogen Normal, Ur Leukocyte Esterase 25 H, Urine RBC 0 SEEN, Urine WBC 0-5 SEEN, Ur Squamous Epith Cells 0 SEEN, Urine Bacteria 0 SEEN, Urine Mucus 0 SEEN 06/11/25 04:32: WBC 7.1, RBC 3.32 L, Hgb 8.2 L, Hct 27.2 L, MCV 81.9, MCH 24.7 L , MCHC 30.1 L, RDW Std Deviation 54.4 H, RDW Coeff of Aly 18.4 H, Plt Count 390, MPV 9.8, Immature Gran % (Auto) 0.300, Neut % (Auto) 86.3 H, Lymph % (Auto) 8.6 L, [place] % (Auto) 4.1, Eos % (Auto) 0.0, Baso % (Auto) 0.7, Absolute Neuts (auto) 6.1, Absolute Lymphs (auto) 0.61 L, Nucleated RBC % 0, Sodium 138, Potassium 4.4, Chloride 101, Carbon Dioxide 27.1, Anion Gap 9, BUN 20 H, Creatinine 1.00, Estim Creat Clear Calc 55.11, Est GFR (MDRD) Non-Af 78, BUN/Creatinine Ratio 19.9, Glucose 108 H, Calcium 8.6 Microbiology: Microbiology 06/10/25 15:45 Urine Catheter - Catheter Legionella Antigen - Final 06/10/25 15:45 Urine Catheter - Catheter Streptococcus pneumoniae Antigen (M - Final 06/09/25 18:40 Nasal Secretion MRSA (PCR) - Final 06/09/25 15:35 Mucosa - Nasopharyngeal Respiratory Panel (PCR) - Final 06/09/25 13:00 Mucosa - Nose SARS-CoV-2, Influenza & RSV (PCR) - Final D/C Instructions DC O2, CPAP, BIPAP Needs Home O2 Discharge instructions: Yes Type of respiratory needs?: Oxygen Oxygen frequency: Continuous Continuous oxygen liters per minute: 2 DC home with Oxygen: Yes Home O2 MD Review: I have reviewed the oxygen testing, and the patient qualifies for home oxygen equipment and portability. The patient is mobile in the home and the community. Meaningful Use Info Meaningful Use Meaningful Use Diagnoses (Choose all that apply): None applicable Discharge Plan Admission Admit Date/Time: 06/09/25 14:12 Primary Reason for Your Visit: hypoxia Attending Provider: Raul Merino Primary Care Provider: Lorraine Mena Consulting Providers: Shilpa Contreras Discharge Orders/Prescriptions Prescriptions: New quetiapine 25 mg tablet 25 mg feeding tube QHS Qty: 30 0RF Continued carbamazepine 100 mg/5 mL Suspension 200 mg G-tube 4X/DAY Qty: 0 0RF thiamine HCl (vitamin B1) 100 mg Tablet 100 mg G-tube BREAKFAST Qty: 0 0RF sertraline 100 mg tablet 100 mg feeding tube DAILY 30 Days Qty: 30 0RF mirtazapine 15 MG tablet 15 mg feeding tube QHS 30 Days Qty: 30 0RF cholecalciferol (vitamin D3) 50 mcg (2,000 unit) tablet 50 mcg feeding tube DAILY 30 Days Qty: 30 0RF hydralazine 25 mg Tablet 25 mg G-tube TID Rx Instructions: Hold for SBP less than 110 atorvastatin 40 mg Tablet 40 mg G-tube QHS Qty: 0 0RF Eliquis 5 mg Tablet 2.5 mg G-tube BID bisacodyl 10 mg suppository 10 mg NM PRN Glucagon Emergency Kit (human) 1 mg recon soln 1 mg IM Q20M PRN (Reason: hypoglycemia) Rx Instructions: until target blood sugar attained tamsulosin 0.4 mg capsule 0.4 mg PO QHS Rx Instructions: give via Peg Tube guaifenesin [Adult Wal-Tussin] 100 mg/5 mL liquid 200 mg PO Q4H PRN (Reason: congestion/COUGH) Rx Instructions: give via Peg-tube metoprolol tartrate 50 mg tablet 50 mg feeding tube BID magnesium hydroxide [Gentle Laxative (mag hydrox)] 400 mg/5 mL suspension 30 ml feeding tube DAILY PRN (Reason: bowel movement) Rx Instructions: notify physician if no BM in 4 days acetaminophen 650 mg suppository 650 mg NM Q4H PRN (Reason: fever or pain) Rx Instructions: do not exceed 4GM in 24 hours acetaminophen 325 mg Tablet 650 mg feeding tube Q4H PRN (Reason: Pain 1-10 Or Fever>100.7) albuterol sulfate 2.5 mg /3 mL (0.083 %) Solution For Nebulization 2.5 mg inhalation Q6H PRN (Reason: copd) amlodipine 10 mg Tablet 10 mg G-tube DAILY aluminum-magnesium hydroxide 200-200 mg/5 mL suspension 30 ml feeding tube Q4H PRN (Reason: gi distress) Enema 19-7 gram/118 mL enema 118 ml NM DAILY PRN (Reason: constipation) Rx Instructions: May use twice per episode if Dulcolax suppository ineffective. guaifenesin [Chest Congestion Relief] 400 mg tablet 400 mg PO TID PRN (Reason: congestion/cough) Rx Instructions: give via peg-tube hydroxyzine HCl 25 mg tablet 50 mg PO Q8H PRN (Reason: agitation) Rx Instructions: start 06/05/25, end 06/19/25 loperamide [Imodium A-D] 2 mg capsule 2 mg feeding tube DAILY PRN (Reason: loose stool) omeprazole-sodium bicarbonate 2-84 mg/mL suspension for reconstitution 10 ml feeding tube BID valproic acid (as sodium salt) 250 mg/5 mL solution 125 mg feeding tube TID ipratropium-albuterol 0.5 mg-3 mg(2.5 mg base)/3 mL Solution For Nebulization 3 ml inhalation Q6H PRN (Reason: copd) clonidine 0.2 mg/24 hr Patch Weekly 0.2 mg transdermal MO losartan 100 mg tablet 100 mg feeding tube QHS ergocalciferol (vitamin D2) [Vitamin D2] 1,250 mcg (50,000 unit) Capsule 1,250 mcg feeding tube Q7D Rx Instructions: on Monday morning lorazepam [Ativan] 0.5 mg tablet 0.5 mg PO Q8H PRN (Reason: agitation/ anxiety) 3 Days Qty: 10 0RF Rx Instructions: start 06/05/25. end 06/19/25 Referrals / Follow Up: Lorraine Mena MD [Primary Care Provider, Internal Medicine] - Within 2 Weeks Disposition Disposition (needs filled in before D/C Order can be placed): NonSkilled NH/Intermed Care Charges/Coding Visit Charges Inpatient E&M: 64827 Disch Hosp
--- NOTE | 2025-06-11 11:29 | CASEMGMT ---
Discharge Planning Discharge orders, signed med list, and transport time sent via [facility] to [facility]. Physicians will transport pt by cot at Nursing and SW updated. left for pts daughter/HC POA (Michelle). Jacquie Michaud DC Planning Asst.
== END 2025-06-11 13:14 | DRG 190 ==
LOC: ED 12:14 → PCU 14:53
PROVIDERS: Admitting Provider Family Medicine; Emergency Provider Surgery; PCP Internal Medicine
DX: J44.1 Chronic obstructive pulmonary disease with (acute) exacerbation (principal); E43 Unspecified severe protein-calorie malnutrition; I69.351 Hemiplegia and hemiparesis following cerebral infarction affecting right dominant side; J45.901 Unspecified asthma with (acute) exacerbation; J96.11 Chronic respiratory failure with hypoxia; K51.90 Ulcerative colitis, unspecified, without complications; N13.8 Other obstructive and reflux uropathy; Z68.1 Body mass index [BMI] 19.9 or less, adult; I69.320 Aphasia following cerebral infarction; K21.9 Gastro-esophageal reflux disease without esophagitis; Z99.81 Dependence on supplemental oxygen; I48.0 Paroxysmal atrial fibrillation; E86.0 Dehydration; E11.22 Type 2 diabetes mellitus with diabetic chronic kidney disease; G40.909 Epilepsy, unspecified, not intractable, without status epilepticus; F32.A Depression, unspecified; I12.9 Hypertensive chronic kidney disease with stage 1 through stage 4 chronic kidney disease, or unspecified chronic kidney disease; D50.9 Iron deficiency anemia, unspecified; Z93.1 Gastrostomy status; I69.391 Dysphagia following cerebral infarction; N18.2 Chronic kidney disease, stage 2 (mild); E11.51 Type 2 diabetes mellitus with diabetic peripheral angiopathy without gangrene; F17.200 Nicotine dependence, unspecified, uncomplicated; I25.10 Atherosclerotic heart disease of native coronary artery without angina pectoris; G47.33 Obstructive sleep apnea (adult) (pediatric); F41.9 Anxiety disorder, unspecified; I65.23 Occlusion and stenosis of bilateral carotid arteries; S51.812A Laceration without foreign body of left forearm, initial encounter; E78.5 Hyperlipidemia, unspecified; M81.0 Age-related osteoporosis without current pathological fracture; N40.1 Benign prostatic hyperplasia with lower urinary tract symptoms; G89.29 Other chronic pain; R79.89 Other specified abnormal findings of blood chemistry; Z86.19 Personal history of other infectious and parasitic diseases; Z87.440 Personal history of urinary (tract) infections; Z87.19 Personal history of other diseases of the digestive system; Z79.01 Long term (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 of anticoagulants; Z90.49 Acquired absence of other specified parts of digestive tract; Z79.899 Other long term (current) drug therapy; Z91.199 Patient's noncompliance with other medical treatment and regimen due to unspecified reason; Z87.898 Personal history of other specified conditions
CPT/HCPCS: 36415; 71045; 80048; 80053; 81001; 82803; 83605; 83735; 84100; 84145; 84484; 85025; 85610; 85730; 87449; 87631; 87633; 87641; 94640; 99285; A4216

== ENCOUNTER → 2025-06-17 05:00 | Outpatient (REF) | payer MEDICARE, MEDICAID, SELFPAY ==
--- OUTSIDE RECORDS SUMMARY | 2025-06-17 04:33 | XMS RPT_ITS | CCD ---
Author Organization [facility] Care Team Providers Care Home Theater Experience Expert Name Role Phone Selene RANDALL, Daija Primary Care Provider Madeline PHOTOGRAPHIC TECHNICIAN, Beatriz Unavailable Unavailab johnson Morton MD, Daija [...] Provider Dr. Elton Moore Other Provider [phone] Raul Melchor Emergency Provider Dr. Андрей Coolye Attending Provider Dr. Андрей Cooleyit Provider Dr. [...] Dr. Aguirre Attending Provider Unavaila ble Older CYBER INCIDENT ANALYST.PHOTOGRAPHIC TECHNICIAN, Anjel Unavailable Aaron GUTIERREZ, Dr. Vizcaino Emergency [...] Dr. Lara Other Provider Tim RANDALL, Dr. Tinoe Other Provider Sam RANDALL, Dr. Davis Other [...] Other Provider Saul RANDALL, Jo Other Provider [phone] ECLIA RANDALL, JOSETTE Other Provider Inez RANDALL, Angelo [...] Provider Mateo RANDALL, Admit Provider Unavailable Mateo ARNDALL, Attending Provider Jacques Galindo MD, Other Provider [...] Mateo RANDALL, Referring Provider Unavaila deandre Doss FOXING CLOSER-C, Josefa Attending Provider Trina RANDALL, Dr. Peters Primary Care Provider Trina RANDALL, Dr. Peters Attending Provider Trina RANDALL, Dr. Peters Primary Care Provider Romario FOXING CLOSER-C, Josefa Attending Provider Selene RANDALL, Dr. Choe [...] Toribio Consulting Unavailable Hannah Busch Attending Unavailable [facility] Unavailable [facility], Daija Referring Unavailable Josefa Doss NP Attending Unavailable [facility] Unavailable Lisha Talamantes Attending Unavailable [facility] Primary Care Unavailable White, Shilpa L Admitting Unavailable White, Shilpa L Consulting Unavailable Albin, Lisha Consulting Unavailable Yaya Talamantesyn Attending Unavailable [facility], Daija Primary Care Unavailable White, Shilpa [...] Unavailable Oleghe, Efewongbe Primary Care Unavailable Tickton FOXING CLOSER, Josefa Attending Unavailable Tickton FOXING CLOSER, Josefa Attending Unavailable Olee, Efewongbe Primary Care Unavailable Olee, Efewongbe Primary Care Unavailable Olee, Efewongbe Attending Unavailable Lisha Talamantes Attending Unavailable [place], Ricardo Consulting Unavailable Hinduja, Amy Consulting Unavailable [...] Consulting Unavailable Lisha Talamantes Referring Unavailable Tickton FOXING CLOSER, Josefa Attending Unavailable [facility], Efewongbe Primary Care Unavailable Olee, Efewongbe Referring Unavailable [facility], Efewongbe Primary Care Unavailable Mackenzie Dangelo Attending Unavailable Tickton FOXING CLOSER, Josefa Attending Unavailable [facility], Efewongbe Primary Care Unavailable Florencioton FOXING CLOSER, Josefa Attending Unavailable [facility], Efewongbe Primary Care Unavailable Roman Patel Consulting Unavailable Jorge Roman Admitting Unavailable Roman Patel Attending Unavailable [facility] Primary Care Unavailable Ricardo Mccullough Consulting Unavailable Lisha Talamantes Attending Unavailable [facility] Primary Care Unavailable Jorge Roman Admitting Unavailable [...] Patel Consulting Unavailable Chrystal Collier Consulting Unavailable uLan Mcgraw Consulting Unavailable Jo Hughes Consulting Unavailable [...] Galindo Referring Unavailable Ryan Guerin Referring Unavailable Calra Davis Attending Unavailable Ganta, Daija Primary Care [...] Start: 08-22-2023 End: 12-24-2024 168 hr cloNIDine 0.38511 mg/ hr transdermal system (20 sources) Central [...] Comment on above: Take 1 capsule by [facility] once daily. traMADol hydrochloride 50 mg oral [...] unspecified emphysema type (HCC) Aerosol supplies Dx:J44.1 NPI#[id number] 1 Each 2 04/11/2018 02/02/2022 Discontinued (Duplicate Entry) Start: 04-11-2018 End: 02-02-2022 COMPOUNDED PRESCRIPTION Tamela cations: Pulmonary emphysema, unspecified emphysema type (HCC) NEBULIZER FOR HOME USE. DX: Emphysema, COPD 1 Each 3 04/11/2018 02/02/2022 Discontinued (Duplicate Entry) Start: 04-11-2018 COMPOUNDED PRE SCRIPTION Indications: Pulmonary emphysema, unspecified emphysema type (HCC) Aerosol supplies Dx:J44.1 NPI#[id number] 1 Each 2 04/11/2018 Active Start: 04-11-2018 COMPOUNDED PRE SCRIPTION Indications: Pulmonary emphysema, unspecified emphysema type (HCC) NEBULIZER FOR HOME USE. DX: Emphysema, COPD 1 Each 3 04/11/2018 Active Comment on above: Aerosol supplies Dx: J44.1 NPI#[id number] NEBULIZER FOR HOME U SE. DX: Emphysema, COPD 12 hr dextromethorphan hydrobromide 60 mg / guaiFENesin 1200 mg extended release oral tablet (20 sources) Uncompetitive W-taauti-T-aspartate Receptor Antagonist, Sigma-1 Agonist Start: 09-02-2024 End: [...] of L2 vertebra, initial encounter ([facility]) Take 1 capsule by mouth [...] on above: Take 1 capsule by mo [facility] once daily as needed for Constipation. Take with pain medication docusate sodium 50 mg / sennosides, mcfp 8.6 mg oral tablet (20 sources) Start: [...] Corticosteroid, beta2-Adrenergic Agonist Start: 03-24-2020 End: 04-05-2021 yovynnsgcrp-rajlunvod-jf lanter (TRELEGY ELLIPTA) 100-62.5-25 mcg [The details [...] on above: Take 1 capsule by mo wah once daily. Take 2 capsules by m [...] End: 12-07-2015 Start: 12-02-2015 End: 12-07-2015 Ipratropium [place] (Atroven t (Sp)) 12.9 GM inhaler Discontinued 2 NMA INHALATION EVERY 6 HOURS December 02, 2015 12:00am December 07, 2015 10:01am Start: 12-02-2015 End: 12-07-2015 take 1 puff(s) by inhalation every six hours Ipratropium [place] (Atrovent (Sp)) 12.9 GM inhaler Discontinued 2 [...] mg tablet Indications: Coronary artery disease involving [place] coronary artery of [place] heart without angina pectoris Take 1 tablet [...] End: 12-07-2015 Start: 12-02-2015 End: 12-07-2015 Tiotropium [place] (Spiriva 18 Mcg) 1 PUFF inhaler Discontinued 1 NMA INHALATION DAILY December 02, 2015 12:00am December 07, 2015 10:02am Start: 12-02-2015 End: 12-07-2015 Start: 12-02-2015 End: 12-07-2015 take 1 puff(s) by inhalation once daily Tiotropium [place] (Spiriva 18 Mcg) 1 PUFF inhaler Discontinued 1 PUFF INHALATION DAILY December 01, 2015 11:00pm December 07, 2015 9:02am Start: 01-26-2014 End: 09-29-2015 Start: 01-26-2014 End: 09-29-2015 take 1 puff(s) by inhalation once daily Tiotropium [place] (Spiriva With Handihaler) 1 PUFF inhaler Discontinued 1 NMA INHALATION DAILY January 26, 2014 12:00am September 29, 2015 1:10pm Start: 01-26-2014 End: 09-29-2015 Start: 01-26-2014 End: 09-29-2015 take 1 puff(s) by inhalation once daily Tiotropium [place] (Spiriva With Handihaler) 1 PUFF inhaler Discontinued [...] ing 09/13/2021 Take 2 tablets by mo [facility] once daily. As dosed based on [...] Coronary arteriosclerosis; Translations: [Atherosclerotic heart disease of [place] coronary artery without angina pectoris] Onset: 3 [...] sources) Long-term current use of anticoagulant; Translations: [MCFP (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 of anticoagulants] 02-09-2019 Episodic Comment on above: On warfarin Other aftercare (1 source) Prescribed medication regimen behavior finding; Translations: [MCFP (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 of opiate analgesic] Episodic Other aftercare (20 sources) Drug therapy status; Translations: [MCFP (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 of anticoagulants] 08-18-2021 Episodic Other aftercare (20 sources) [employer] (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 of anticoagulants; Translations: [Long-term (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 of anticoagulants] Episodic Other aftercare (20 sources) Drug therapy finding; 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: [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] 02-09-2019 Episodic [...] 12-17-2019 Episodic Other aftercare (1 source) Other long term care administrator (current) drug therapy; Translations: [Other long term care administrator (current) drug therapy] Onset: 12-24-2024 Episodic Other [...] FAQ page (http://www.e-imo.co m/faq/vocabportal_fa q.aspx) or contact [facility] Customer Support at [email or web address] 03-20-2013 Results Test Name Value Interpretation Reference [...] 4:14:48 AM Ordering Provider: MAGDALENE POWELL RP [facility] CT MAXILLOFACIAL W/O CONTRAS Ton 03-18-2025 CT [...] 4:22:40 AM Ordering Provider: MAGDALENE POWELL RP [facility] CT SPINE CERVICAL W/O CONTRA STon 03-18-2025 [...] Provider: MAGDALENE POWELL RP Normal [facility] Absolute lymphocyte countOrd ered By: Lorraine Mena on 02-18-2025 Lymphocytes Auto (Unsp spec) [#/Vol] 0.91 10*3/uL 0.83-4.51 [facility] Anion gap in Serum or Plasma Ordered By: Lorraine Mena on 02-18-2025 Anion gap [Moles/Vol] 12 mmol/L 5-15 [facility] Automated lymphocyte count a s percentage of total leukocytesOrdered By: Lorraine Mena on 02-18-2025 Lymphocytes/100 WBC Auto (Unsp spec) 9.9 % Low 19-41 [facility] BUN/creatinine ratioOrdered By: Lorraine Mena on 02-18-2025 Urea nitrogen/Creatinine [Mass ratio] 16.0 mg/mg 10-20 [facility] Basophil percentageOrdered B y: Lorraine Mena on 02-18-2025 Basophils/100 WBC (Bld) 0.5 % 0-1 [facility] Calculated very low density lipoprotein (VLDL) cholesterol measurementOrdered By: Lorraine Mena on 02-18-2025 Calculated very low density lipoprotein (VLDL) cholesterol measurement 17 mg/dL 5-40 [facility] Carbon dioxide, total [Moles /volume] in Central venous bloodOrdered By: ml Mena on 02-18-2025 CO2 [Moles/Vol] 26.0 mmol/L 21.0-32.0 [facility] Chloride assayOrdered By: Ledy Mena on 02-18-2025 Chloride [Moles/Vol] 99 mmol/L 98-108 [facility] Eosinophil percentageOrdered By: Lorraine Mena on 02-18-2025 Eosinophils/100 WBC (Bld) 0.4 % 0-5 [facility] Erythrocyte distribution wid th ratioOrdered By: Donalson[facility] Hospitalthao Mena on 02-18-2025 Erythrocyte distribution width (RBC) [Ratio] 16.4 % High 11.6-14.6 [facility] Erythrocyte distribution wid th standard deviationOrdered By: Roselynhillsdalethao Mena on 02-18-2025 Erythrocyte distribution width (RBC) [Ratio] 51.2 fl High 35.1-43.9 [facility] Glomerular filtration rate ( GFR) estimation/1.73 sq m using serum, plasma, or whole bOrdered By: Lorraine Mena on 02-18-2025 GFR/1.73 sq M.predicted among non-blacks MDRD (S/P/Bld) [Vol rate/Area] 66 mL/min/{1.73_m2} >60 [facility] Hematocrit Auto (Bld) [Volum e fraction]Ordered By: Lorraine Mena on 02-18-2025 Hematocrit (Bld) [Volume fraction] 32.2 % Low 40-54 [facility] Hemoglobin measurementOrdere d By: Lorraine Mena on 02-18-2025 Hemoglobin (Bld) [Mass/Vol] 9.9 g/dL Low 13.0-16.5 [facility] Immature granulocytes/100 WB C Auto (Bld)Ordered By: Lorraine Mena on 02-18-2025 Immature granulocytes/100 WBC (Bld) 0.500 % 0.0-0.9 [facility] LDL calc ser/plasOrdered By: Ledyroelorri Mena on 02-18-2025 Cholesterol in LDL [Mass/Vol] 61 mg/dL [facility] MCV (mean corpuscular volume ) determinationOrdered By: ml Almonteemi on 02-18-2025 MCV (RBC) [Entitic vol] 85.6 fL 80-94 [facility] Mean corpuscular hemoglobin (MCH) determinationOrdered By: Lorraine Mena on 02-18-2025 MCH (RBC) [Entitic mass] 26.3 pg Low 27.0-32.0 [facility] Monocyte percentageOrdered B y: Lorraine Almonteemi on 02-18-2025 Monocytes/100 WBC (Bld) 5.9 % 0-10 [facility] Neutrophil percentageOrdered By: ml Mena on 02-18-2025 Neutrophils/100 WBC (Bld) 82.8 % High 47-70 [facility] Platelet countOrdered By: Ledy Mena on 02-18-2025 Platelets (Bld) [#/Vol] 454 10*3/uL High 150-450 [facility] Potassium measurement (mass/ volume)Ordered By: Ledyroelorri Emmettbandaremi on 02-18-2025 Potassium (Unsp spec) [Mass/Vol] 4.0 mmol/L 3.3-5.1 [facility] RBC Auto (Bld) [#/Vol]Ordere d By: Lorraine Mena on 02-18-2025 RBC (Bld) [#/Vol] 3.76 10*6/uL Low 4.6-6.2 [facility] Serum creatinine measurement (mass/volume)Ordered By: Nettiethao Christinebandaremi on 02-18-2025 Creatinine [Mass/Vol] 1.16 mg/dL 0.70-1.20 [facility] Serum glucose measurement (m ass/volume)Ordered By: Lorraine Mena on 02-18-2025 Glucose [Mass/Vol] 112 mg/dL High 70-99 [facility] Serum or plasma calcium luis urement (mass/volume)Ordered By: Lorraine Mena on 02-18-2025 Calcium [Mass/Vol] 9.5 mg/dL 7.6-11.0 [facility] Serum or plasma cholesterol in HDL measurement (mass/volume)Ordered By: Lorraine Mena on 02-18-2025 Cholesterol in HDL [Mass/Vol] 96 mg/dL >40 [facility] Serum or plasma cholesterol measurement (mass/volume)Ordered By: Lorraine Mena on 02-18-2025 Cholesterol [Mass/Vol] 174 mg/dL <201 [facility] Serum or plasma urea nitroge n measurement (mass/volume)Ordered By: Lorraine Mena on 02-18-2025 Urea nitrogen [Mass/Vol] 19 mg/dL 4-19 [facility] Sodium levelOrdered By: Roselyn Mena on 02-18-2025 Sodium [Moles/Vol] 137 mmol/L 133-145 [facility] White blood cell (WBC) count Ordered By: Lorraine Mena on 02-18-2025 WBC (Bld) [#/Vol] 9.2 10*3/uL 4.4-11.0 [facility] Absolute lymphocyte countOrd ered By: Lorraine Mena on 02-11-2025 Lymphocytes Auto (Unsp spec) [#/Vol] 1.18 10*3/uL 0.83-4.51 [facility] Anion gap in Serum or Plasma Ordered By: Lorraine Mena on 02-11-2025 Anion gap [Moles/Vol] 11 mmol/L 5-15 [facility] Automated lymphocyte count a s percentage of total leukocytesOrdered By: Lorraine Mena on 02-11-2025 Lymphocytes/100 WBC Auto (Unsp spec) 16.0 % Low 19-41 [facility] BUN/creatinine ratioOrdered By: Lorraine Mena on 02-11-2025 Urea nitrogen/Creatinine [Mass ratio] 23.5 mg/mg High 10-20 [facility] Basophil percentageOrdered B y: Lorraine Christinebandaremi on 02-11-2025 Basophils/100 WBC (Bld) 0.7 % 0-1 [facility] Calculated very low density lipoprotein (VLDL) cholesterol measurementOrdered By: Lorraine Mena on 02-11-2025 Calculated very low density lipoprotein (VLDL) cholesterol measurement 19 mg/dL 5-40 [facility] Carbon dioxide, total [Moles /volume] in Central venous bloodOrdered By: Lorraine Mena on 02-11-2025 CO2 [Moles/Vol] 26.3 mmol/L 21.0-32.0 [facility] Chloride assayOrdered By: Ledy Mena on 02-11-2025 Chloride [Moles/Vol] 101 mmol/L 98-108 [facility] Eosinophil percentageOrdered By: Lorraine Mena on 02-11-2025 Eosinophils/100 WBC (Bld) 0.9 % 0-5 [facility] Erythrocyte distribution wid th ratioOrdered By: Lorraine Mena on 02-11-2025 Erythrocyte distribution width (RBC) [Ratio] 16.5 % High 11.6-14.6 [facility] Erythrocyte distribution wid th standard deviationOrdered By: Lorraine Mena on 02-11-2025 Erythrocyte distribution width (RBC) [Ratio] 51.8 fl High 35.1-43.9 [facility] Glomerular filtration rate ( GFR) estimation/1.73 sq m using serum, plasma, or whole bOrdered By: Lorraine Mena on 02-11-2025 GFR/1.73 sq M.predicted among non-blacks MDRD (S/P/Bld) [Vol rate/Area] 72 mL/min/{1.73_m2} >60 [facility] Hematocrit Auto (Bld) [Volum e fraction]Ordered By: Lorraine Mena on 02-11-2025 Hematocrit (Bld) [Volume fraction] 31.3 % Low 40-54 [facility] Hemoglobin measurementOrdere d By: Lorraine Mena on 02-11-2025 Hemoglobin (Bld) [Mass/Vol] 10.0 g/dL Low 13.0-16.5 [facility] Immature granulocytes/100 WB C Auto (Bld)Ordered By: Lorraine Mena on 02-11-2025 Immature granulocytes/100 WBC (Bld) 0.400 % 0.0-0.9 [facility] LDL calc ser/plasOrdered By: Lorraine Mena on 02-11-2025 Cholesterol in LDL [Mass/Vol] 56 mg/dL [facility] MCV (mean corpuscular volume ) determinationOrdered By: ml Mena on 02-11-2025 MCV (RBC) [Entitic vol] 86.5 fL 80-94 [facility] Mean corpuscular hemoglobin (MCH) determinationOrdered By: roehillsdalethao Mena on 02-11-2025 MCH (RBC) [Entitic mass] 27.6 pg 27.0-32.0 [facility] Monocyte percentageOrdered B y: Lorraine Mena on 02-11-2025 Monocytes/100 WBC (Bld) 9.3 % 0-10 [facility] Neutrophil percentageOrdered By: roehillsdalethao Mena on 02-11-2025 Neutrophils/100 WBC (Bld) 72.7 % High 47-70 [facility] Platelet countOrdered By: Ledy Mena on 02-11-2025 Platelets (Bld) [#/Vol] 457 10*3/uL High 150-450 [facility] Potassium measurement (mass/ volume)Ordered By: Lorraine Almonteemi on 02-11-2025 Potassium (Unsp spec) [Mass/Vol] 4.3 mmol/L 3.3-5.1 [facility] RBC Auto (Bld) [#/Vol]Ordere d By: Lorraine Mena on 02-11-2025 RBC (Bld) [#/Vol] 3.62 10*6/uL Low 4.6-6.2 [facility] Serum creatinine measurement (mass/volume)Ordered By: Lorraine Almonteemi on 02-11-2025 Creatinine [Mass/Vol] 1.07 mg/dL 0.70-1.20 [facility] Serum glucose measurement (m ass/volume)Ordered By: Lorraine Mena on 02-11-2025 Glucose [Mass/Vol] 78 mg/dL 70-99 [facility] Serum or plasma calcium luis urement (mass/volume)Ordered By: Lorraine Mena on 02-11-2025 Calcium [Mass/Vol] 9.6 mg/dL 7.6-11.0 [facility] Serum or plasma cholesterol in HDL measurement (mass/volume)Ordered By: Lorraine Mena on 02-11-2025 Cholesterol in HDL [Mass/Vol] 98 mg/dL >40 [facility] Serum or plasma cholesterol measurement (mass/volume)Ordered By: Lorraine Mena on 02-11-2025 Cholesterol [Mass/Vol] 173 mg/dL <201 [facility] Serum or plasma urea nitroge n measurement (mass/volume)Ordered By: Lorraine Mena on 02-11-2025 Urea nitrogen [Mass/Vol] 25 mg/dL High 4-19 [facility] Sodium levelOrdered By: Roselyn gauthierdaphney Trina on 02-11-2025 Sodium [Moles/Vol] 138 mmol/L 133-145 [facility] White blood cell (WBC) count Ordered By: Lorraine Mena on 02-11-2025 WBC (Bld) [#/Vol] 7.4 10*3/uL 4.4-11.0 [facility] Urine Legionella pneumophila antigen detectionOrdered By: Lorraine Mena on 02-09-2025 L. pneumophila Ag Ql (U) [facility] Absolute lymphocyte countOrd ered By: Lorraine Mena on 02-03-2025 Lymphocytes Auto (Unsp spec) [#/Vol] 1.05 10*3/uL 0.83-4.51 [facility] Anion gap in Serum or Plasma Ordered By: Lorraine Mena on 02-03-2025 Anion gap [Moles/Vol] 11 mmol/L 5-15 [facility] Automated lymphocyte count a s percentage of total leukocytesOrdered By: Lorraine Mena on 02-03-2025 Lymphocytes/100 WBC Auto (Unsp spec) 13.9 % Low 19-41 [facility] BUN/creatinine ratioOrdered By: Lorraine Mena on 02-03-2025 Urea nitrogen/Creatinine [Mass ratio] 20.3 mg/mg High 10-20 [facility] Basophil percentageOrdered B y: Lorraine Mena on 02-03-2025 Basophils/100 WBC (Bld) 0.8 % 0-1 [facility] Calculated very low density lipoprotein (VLDL) cholesterol measurementOrdered By: Lorraine Mena on 02-03-2025 Calculated very low density lipoprotein (VLDL) cholesterol measurement 25 mg/dL 5-40 [facility] Carbon dioxide, total [Moles /volume] in Central venous bloodOrdered By: Lorraine Mena on 02-03-2025 CO2 [Moles/Vol] 26.5 mmol/L 21.0-32.0 [facility] Chloride assayOrdered By: Ledy Mena on 02-03-2025 Chloride [Moles/Vol] 99 mmol/L 98-108 [facility] Eosinophil percentageOrdered By: Lorraine Mena on 02-03-2025 Eosinophils/100 WBC (Bld) 1.2 % 0-5 [facility] Erythrocyte distribution wid th ratioOrdered By: Lorraine Mena on 02-03-2025 Erythrocyte distribution width (RBC) [Ratio] 16.4 % High 11.6-14.6 [facility] Erythrocyte distribution wid th standard deviationOrdered By: Lorraine Mena on 02-03-2025 Erythrocyte distribution width (RBC) [Ratio] 52.5 fl High 35.1-43.9 [facility] Glomerular filtration rate ( GFR) estimation/1.73 sq m using serum, plasma, or whole bOrdered By: Lorraine Mena on 02-03-2025 GFR/1.73 sq M.predicted among non-blacks MDRD (S/P/Bld) [Vol rate/Area] 66 mL/min/{1.73_m2} >60 [facility] Hematocrit Auto (Bld) [Volum e fraction]Ordered By: Lorraine Mena on 02-03-2025 Hematocrit (Bld) [Volume fraction] 32.1 % Low 40-54 [facility] Hemoglobin measurementOrdere d By: Lorraine Mena on 02-03-2025 Hemoglobin (Bld) [Mass/Vol] 9.9 g/dL Low 13.0-16.5 [facility] Immature granulocytes/100 WB C Auto (Bld)Ordered By: Lorraine Mena on 02-03-2025 Immature granulocytes/100 WBC (Bld) 0.500 % 0.0-0.9 [facility] LDL calc ser/plasOrdered By: roehillsdalethao Mena on 02-03-2025 Cholesterol in LDL [Mass/Vol] 46 mg/dL [facility] MCV (mean corpuscular volume ) determinationOrdered By: Lorraine Mena on 02-03-2025 MCV (RBC) [Entitic vol] 87.2 fL 80-94 [facility] Mean corpuscular hemoglobin (MCH) determinationOrdered By: Lorraine Mena on 02-03-2025 MCH (RBC) [Entitic mass] 26.9 pg Low 27.0-32.0 [facility] Monocyte percentageOrdered B y: Lorraine Mena on 02-03-2025 Monocytes/100 WBC (Bld) 7.4 % 0-10 [facility] Neutrophil percentageOrdered By: Lorraine Mena on 02-03-2025 Neutrophils/100 WBC (Bld) 76.2 % High 47-70 [facility] Platelet countOrdered By: Ledy Mena on 02-03-2025 Platelets (Bld) [#/Vol] 423 10*3/uL 150-450 [facility] Potassium measurement (mass/ volume)Ordered By: Lorraine Mena on 02-03-2025 Potassium (Unsp spec) [Mass/Vol] 3.9 mmol/L 3.3-5.1 [facility] RBC Auto (Bld) [#/Vol]Ordere d By: Lorraine Mena on 02-03-2025 RBC (Bld) [#/Vol] 3.68 10*6/uL Low 4.6-6.2 [facility] Serum creatinine measurement (mass/volume)Ordered By: Lorraine Mena on 02-03-2025 Creatinine [Mass/Vol] 1.15 mg/dL 0.70-1.20 [facility] Serum glucose measurement (m ass/volume)Ordered By: Lorraine Mena on 02-03-2025 Glucose [Mass/Vol] 91 mg/dL 70-99 [facility] Serum or plasma calcium luis urement (mass/volume)Ordered By: Lorraine Mena on 02-03-2025 Calcium [Mass/Vol] 9.0 mg/dL 7.6-11.0 [facility] Serum or plasma cholesterol in HDL measurement (mass/volume)Ordered By: Lorraine Mena on 02-03-2025 Cholesterol in HDL [Mass/Vol] 88 mg/dL >40 [facility] Serum or plasma cholesterol measurement (mass/volume)Ordered By: Lorraine Mena on 02-03-2025 Cholesterol [Mass/Vol] 159 mg/dL <201 [facility] Serum or plasma urea nitroge n measurement (mass/volume)Ordered By: Lorraine Mena on 02-03-2025 Urea nitrogen [Mass/Vol] 23 mg/dL High 4-19 [facility] Sodium levelOrdered By: Roselyn gauthierdaphney Trina on 02-03-2025 Sodium [Moles/Vol] 136 mmol/L 133-145 [facility] White blood cell (WBC) count Ordered By: Lorraine Mena on 02-03-2025 WBC (Bld) [#/Vol] 7.5 10*3/uL 4.4-11.0 [facility] Absolute lymphocyte countOrd ered By: Lorraine Mena on 01-27-2025 Lymphocytes Auto (Unsp spec) [#/Vol] 1.04 10*3/uL 0.83-4.51 [facility] Anion gap in Serum or Plasma Ordered By: Lorraine Mena on 01-27-2025 Anion gap [Moles/Vol] 12 mmol/L 5-15 [facility] Automated lymphocyte count a s percentage of total leukocytesOrdered By: Lorraine Mena on 01-27-2025 Lymphocytes/100 WBC Auto (Unsp spec) 14.3 % Low 19-41 [facility] BUN/creatinine ratioOrdered By: Lorraine Mena on 01-27-2025 Urea nitrogen/Creatinine [Mass ratio] 23.2 mg/mg High 10-20 [facility] Basophil percentageOrdered B y: Lorraine Mena on 01-27-2025 Basophils/100 WBC (Bld) 0.7 % 0-1 [facility] Calculated very low density lipoprotein (VLDL) cholesterol measurementOrdered By: Lorraine Mena on 01-27-2025 Calculated very low density lipoprotein (VLDL) cholesterol measurement 17 mg/dL 5-40 [facility] Carbon dioxide, total [Moles /volume] in Central venous bloodOrdered By: Lorraine Mena on 01-27-2025 CO2 [Moles/Vol] 26.9 mmol/L 21.0-32.0 [facility] Chloride assayOrdered By: Ledy Mena on 01-27-2025 Chloride [Moles/Vol] 96 mmol/L Low 98-108 [facility] Eosinophil percentageOrdered By: Lorraine Mena on 01-27-2025 Eosinophils/100 WBC (Bld) 1.0 % 0-5 [facility] Erythrocyte distribution wid th ratioOrdered By: Lorraine Mena on 01-27-2025 Erythrocyte distribution width (RBC) [Ratio] 16.7 % High 11.6-14.6 [facility] Erythrocyte distribution wid th standard deviationOrdered By: Lorraine Mena on 01-27-2025 Erythrocyte distribution width (RBC) [Ratio] 53.6 fl High 35.1-43.9 [facility] Glomerular filtration rate ( GFR) estimation/1.73 sq m using serum, plasma, or whole bOrdered By: Lorraine Mena on 01-27-2025 GFR/1.73 sq M.predicted among non-blacks MDRD (S/P/Bld) [Vol rate/Area] 60 mL/min/{1.73_m2} >60 [facility] Hematocrit Auto (Bld) [Volum e fraction]Ordered By: Lorraine Mena on 01-27-2025 Hematocrit (Bld) [Volume fraction] 31.2 % Low 40-54 [facility] Hemoglobin measurementOrdere d By: Lorraine Mena on 01-27-2025 Hemoglobin (Bld) [Mass/Vol] 9.5 g/dL Low 13.0-16.5 [facility] Immature granulocytes/100 WB C Auto (Bld)Ordered By: Ledyroelisathao Christinebandaremi on 01-27-2025 Immature granulocytes/100 WBC (Bld) 0.600 % 0.0-0.9 [facility] LDL calc ser/plasOrdered By: roehillsdalethao Christinebandaremi on 01-27-2025 Cholesterol in LDL [Mass/Vol] 64 mg/dL [facility] MCV (mean corpuscular volume ) determinationOrdered By: Ledyroelorri Emmettbandaremi on 01-27-2025 MCV (RBC) [Entitic vol] 88.4 fL 80-94 [facility] Mean corpuscular hemoglobin (MCH) determinationOrdered By: Ledyml Christinebandaremi on 01-27-2025 MCH (RBC) [Entitic mass] 26.9 pg Low 27.0-32.0 [facility] Monocyte percentageOrdered B y: Lorraine Mena on 01-27-2025 Monocytes/100 WBC (Bld) 7.6 % 0-10 [facility] Neutrophil percentageOrdered By: roehillsdalethao Emmettalex on 01-27-2025 Neutrophils/100 WBC (Bld) 75.8 % High 47-70 [facility] Platelet countOrdered By: ml Emmettbandaremi on 01-27-2025 Platelets (Bld) [#/Vol] 413 10*3/uL 150-450 [facility] Potassium measurement (mass/ volume)Ordered By: Ledyroelisathao Christinebandaremi on 01-27-2025 Potassium (Unsp spec) [Mass/Vol] 4.4 mmol/L 3.3-5.1 [facility] RBC Auto (Bld) [#/Vol]Ordere d By: Lorraine Mena on 01-27-2025 RBC (Bld) [#/Vol] 3.53 10*6/uL Low 4.6-6.2 [facility] Serum creatinine measurement (mass/volume)Ordered By: Lorraine Mena on 01-27-2025 Creatinine [Mass/Vol] 1.25 mg/dL High 0.70-1.20 [facility] Serum glucose measurement (m ass/volume)Ordered By: Lorraine Mena on 01-27-2025 Glucose [Mass/Vol] 86 mg/dL 70-99 [facility] Serum or plasma calcium luis urement (mass/volume)Ordered By: Lorraine Mena on 01-27-2025 Calcium [Mass/Vol] 9.5 mg/dL 7.6-11.0 [facility] Serum or plasma cholesterol in HDL measurement (mass/volume)Ordered By: Lorraine Mena on 01-27-2025 Cholesterol in HDL [Mass/Vol] 81 mg/dL >40 [facility] Serum or plasma cholesterol measurement (mass/volume)Ordered By: Lorraine Mena on 01-27-2025 Cholesterol [Mass/Vol] 161 mg/dL <201 [facility] Serum or plasma urea nitroge n measurement (mass/volume)Ordered By: Lorraine Mena on 01-27-2025 Urea nitrogen [Mass/Vol] 29 mg/dL High 4-19 [facility] Sodium levelOrdered By: Roselyn Mena on 01-27-2025 Sodium [Moles/Vol] 135 mmol/L 133-145 [facility] White blood cell (WBC) count Ordered By: Lorraine Mena on 01-27-2025 WBC (Bld) [#/Vol] 7.3 10*3/uL 4.4-11.0 [facility] Absolute lymphocyte countOrd ered By: Lorraine Mena on 01-20-2025 Lymphocytes Auto (Unsp spec) [#/Vol] 0.97 10*3/uL 0.83-4.51 [facility] Anion gap in Serum or Plasma Ordered By: Lorraine Mena on 01-20-2025 Anion gap [Moles/Vol] 13 mmol/L 5-15 [facility] Automated lymphocyte count a s percentage of total leukocytesOrdered By: Lorraine Mena on 01-20-2025 Lymphocytes/100 WBC Auto (Unsp spec) 14.9 % Low 19-41 [facility] BUN/creatinine ratioOrdered By: Lorraine Mean on 01-20-2025 Urea nitrogen/Creatinine [Mass ratio] 20.4 mg/mg High 10-20 [facility] Basophil percentageOrdered B y: Lorraine Mena on 01-20-2025 Basophils/100 WBC (Bld) 0.6 % 0-1 [facility] Calculated very low density lipoprotein (VLDL) cholesterol measurementOrdered By: Lorraine Mena on 01-20-2025 Calculated very low density lipoprotein (VLDL) cholesterol measurement 16 mg/dL 5-40 [facility] Carbon dioxide, total [Moles /volume] in Central venous bloodOrdered By: Lorraine Mena on 01-20-2025 CO2 [Moles/Vol] 26.0 mmol/L 21.0-32.0 [facility] Chloride assayOrdered By: Ledy Mena on 01-20-2025 Chloride [Moles/Vol] 99 mmol/L 98-108 [facility] Eosinophil percentageOrdered By: Lorraine Mena on 01-20-2025 Eosinophils/100 WBC (Bld) 0.9 % 0-5 [facility] Erythrocyte distribution wid th ratioOrdered By: Lorraine Mena on 01-20-2025 Erythrocyte distribution width (RBC) [Ratio] 16.6 % High 11.6-14.6 [facility] Erythrocyte distribution wid th standard deviationOrdered By: Lorraine Mena on 01-20-2025 Erythrocyte distribution width (RBC) [Ratio] 54.0 fl High 35.1-43.9 [facility] Glomerular filtration rate ( GFR) estimation/1.73 sq m using serum, plasma, or whole bOrdered By: Lorraine Mena on 01-20-2025 GFR/1.73 sq M.predicted among non-blacks MDRD (S/P/Bld) [Vol rate/Area] 62 mL/min/{1.73_m2} >60 [facility] Hematocrit Auto (Bld) [Volum e fraction]Ordered By: Lorraine Mena on 01-20-2025 Hematocrit (Bld) [Volume fraction] 30.5 % Low 40-54 [facility] Hemoglobin measurementOrdere d By: Ledyroelisathao Christinebandaremi on 01-20-2025 Hemoglobin (Bld) [Mass/Vol] 9.4 g/dL Low 13.0-16.5 [facility] Immature granulocytes/100 WB C Auto (Bld)Ordered By: Lorraine Mena on 01-20-2025 Immature granulocytes/100 WBC (Bld) 0.500 % 0.0-0.9 [facility] LDL calc ser/plasOrdered By: roehillsdalethao Mena on 01-20-2025 Cholesterol in LDL [Mass/Vol] 45 mg/dL [facility] MCV (mean corpuscular volume ) determinationOrdered By: Roselynhillsdalethao Mena on 01-20-2025 MCV (RBC) [Entitic vol] 88.9 fL 80-94 [facility] Mean corpuscular hemoglobin (MCH) determinationOrdered By: Lorraine Mena on 01-20-2025 MCH (RBC) [Entitic mass] 27.4 pg 27.0-32.0 [facility] Monocyte percentageOrdered B y: Ledyroelisathao Christinebandaremi on 01-20-2025 Monocytes/100 WBC (Bld) 8.2 % 0-10 [facility] Neutrophil percentageOrdered By: Lorraine Mena on 01-20-2025 Neutrophils/100 WBC (Bld) 74.9 % High 47-70 [facility] Platelet countOrdered By: Ledy ellethao Mena on 01-20-2025 Platelets (Bld) [#/Vol] 405 10*3/uL 150-450 [facility] Potassium measurement (mass/ volume)Ordered By: Ledyml Mena on 01-20-2025 Potassium (Unsp spec) [Mass/Vol] 3.7 mmol/L 3.3-5.1 [facility] RBC Auto (Bld) [#/Vol]Ordere d By: Roselynlisathao Christinebandaremi on 01-20-2025 RBC (Bld) [#/Vol] 3.43 10*6/uL Low 4.6-6.2 [facility] Serum creatinine measurement (mass/volume)Ordered By: Lorraine Mena on 01-20-2025 Creatinine [Mass/Vol] 1.21 mg/dL High 0.70-1.20 [facility] Serum glucose measurement (m ass/volume)Ordered By: Lorraine Mena on 01-20-2025 Glucose [Mass/Vol] 149 mg/dL High 70-99 [facility] Serum or plasma calcium luis urement (mass/volume)Ordered By: Lorraine Mena on 01-20-2025 Calcium [Mass/Vol] 9.4 mg/dL 7.6-11.0 [facility] Serum or plasma cholesterol in HDL measurement (mass/volume)Ordered By: Lorraine Mena on 01-20-2025 Cholesterol in HDL [Mass/Vol] 75 mg/dL >40 [facility] Serum or plasma cholesterol measurement (mass/volume)Ordered By: Lorraine Mena on 01-20-2025 Cholesterol [Mass/Vol] 136 mg/dL <201 [facility] Serum or plasma urea nitroge n measurement (mass/volume)Ordered By: Lorraine Mena on 01-20-2025 Urea nitrogen [Mass/Vol] 25 mg/dL High 4-19 [facility] Sodium levelOrdered By: Roselyn Mena on 01-20-2025 Sodium [Moles/Vol] 137 mmol/L 133-145 [facility] White blood cell (WBC) count Ordered By: Lorraine Mena on 01-20-2025 WBC (Bld) [#/Vol] 6.5 10*3/uL 4.4-11.0 [facility] Absolute lymphocyte countOrd ered By: Lorraine Mena on 01-13-2025 Lymphocytes Auto (Unsp spec) [#/Vol] 0.97 10*3/uL 0.83-4.51 [facility] Anion gap in Serum or Plasma Ordered By: Lorraine Mean on 01-13-2025 Anion gap [Moles/Vol] 11 mmol/L 5-15 [facility] Automated lymphocyte count a s percentage of total leukocytesOrdered By: Lorraine Mena on 01-13-2025 Lymphocytes/100 WBC Auto (Unsp spec) 16.5 % Low 19-41 [facility] BUN/creatinine ratioOrdered By: Lorraine Mena on 01-13-2025 Urea nitrogen/Creatinine [Mass ratio] 17.7 mg/mg 10-20 [facility] Basophil percentageOrdered B y: Lorraine Mena on 01-13-2025 Basophils/100 WBC (Bld) 0.8 % 0-1 [facility] Calculated very low density lipoprotein (VLDL) cholesterol measurementOrdered By: Lorraine Mena on 01-13-2025 Calculated very low density lipoprotein (VLDL) cholesterol measurement 34 mg/dL 5-40 [facility] Carbon dioxide, total [Moles /volume] in Central venous bloodOrdered By: Lorraine Mena on 01-13-2025 CO2 [Moles/Vol] 27.7 mmol/L 21.0-32.0 [facility] Chloride assayOrdered By: Ledy Mena on 01-13-2025 Chloride [Moles/Vol] 101 mmol/L 98-108 [facility] Eosinophil percentageOrdered By: Lorraine Mena on 01-13-2025 Eosinophils/100 WBC (Bld) 1.0 % 0-5 [facility] Erythrocyte distribution wid th ratioOrdered By: Lorraine Mena on 01-13-2025 Erythrocyte distribution width (RBC) [Ratio] 16.1 % High 11.6-14.6 [facility] Erythrocyte distribution wid th standard deviationOrdered By: Lorraine Mena on 01-13-2025 Erythrocyte distribution width (RBC) [Ratio] 51.1 fl High 35.1-43.9 [facility] Glomerular filtration rate ( GFR) estimation/1.73 sq m using serum, plasma, or whole bOrdered By: Lorraine Mena on 01-13-2025 GFR/1.73 sq M.predicted among non-blacks MDRD (S/P/Bld) [Vol rate/Area] 70 mL/min/{1.73_m2} >60 [facility] Hematocrit Auto (Bld) [Volum e fraction]Ordered By: Lorraine Emmettbandaremi on 01-13-2025 Hematocrit (Bld) [Volume fraction] 31.4 % Low 40-54 [facility] Hemoglobin measurementOrdere d By: Lorraine Mena on 01-13-2025 Hemoglobin (Bld) [Mass/Vol] 9.9 g/dL Low 13.0-16.5 [facility] Immature granulocytes/100 WB C Auto (Bld)Ordered By: Lorraine Mena on 01-13-2025 Immature granulocytes/100 WBC (Bld) 0.500 % 0.0-0.9 [facility] LDL calc ser/plasOrdered By: [facility] Hospitalthao Almonteemi on 01-13-2025 Cholesterol in LDL [Mass/Vol] 51 mg/dL [facility] MCV (mean corpuscular volume ) determinationOrdered By: roehillsdalethao Emmettbandaremi on 01-13-2025 MCV (RBC) [Entitic vol] 87.7 fL 80-94 [facility] Mean corpuscular hemoglobin (MCH) determinationOrdered By: Ledyroelorri Mena on 01-13-2025 MCH (RBC) [Entitic mass] 27.7 pg 27.0-32.0 [facility] Monocyte percentageOrdered B y: Lorraine Mena on 01-13-2025 Monocytes/100 WBC (Bld) 6.8 % 0-10 [facility] Neutrophil percentageOrdered By: Lorraine Mena on 01-13-2025 Neutrophils/100 WBC (Bld) 74.4 % High 47-70 [facility] Platelet countOrdered By: Ledy Mena on 01-13-2025 Platelets (Bld) [#/Vol] 421 10*3/uL 150-450 [facility] Potassium measurement (mass/ volume)Ordered By: Lorraine Mena on 01-13-2025 Potassium (Unsp spec) [Mass/Vol] 3.8 mmol/L 3.3-5.1 [facility] RBC Auto (Bld) [#/Vol]Ordere d By: Lorraine Mena on 01-13-2025 RBC (Bld) [#/Vol] 3.58 10*6/uL Low 4.6-6.2 [facility] Serum creatinine measurement (mass/volume)Ordered By: Lorraine Mena on 01-13-2025 Creatinine [Mass/Vol] 1.10 mg/dL 0.70-1.20 [facility] Serum glucose measurement (m ass/volume)Ordered By: Lorraine Mena on 01-13-2025 Glucose [Mass/Vol] 110 mg/dL High 70-99 [facility] Serum or plasma calcium luis urement (mass/volume)Ordered By: Lorraine Mena on 01-13-2025 Calcium [Mass/Vol] 9.2 mg/dL 7.6-11.0 [facility] Serum or plasma cholesterol in HDL measurement (mass/volume)Ordered By: Lorraine Mena on 01-13-2025 Cholesterol in HDL [Mass/Vol] 63 mg/dL >40 [facility] Serum or plasma cholesterol measurement (mass/volume)Ordered By: Lorraine Mena on 01-13-2025 Cholesterol [Mass/Vol] 147 mg/dL <201 [facility] Serum or plasma urea nitroge n measurement (mass/volume)Ordered By: Lorraine Mena on 01-13-2025 Urea nitrogen [Mass/Vol] 20 mg/dL High 4-19 [facility] Sodium levelOrdered By: Roselyn Mena on 01-13-2025 Sodium [Moles/Vol] 140 mmol/L 133-145 [facility] White blood cell (WBC) count Ordered By: Lorraine Mena on 01-13-2025 WBC (Bld) [#/Vol] 5.9 10*3/uL 4.4-11.0 [facility] Electrocardiogram reportOrde red By: Geronimo Downey on 01-07-2025 EKG study [facility] Other Phone: Absolute lymphocyte countOrd ered By: Frankie Galindo on 01-06-2025 Lymphocytes Auto (Unsp spec) [#/Vol] 0.58 10*3/uL Low 0.83-4.51 [facility] Anion gap in Serum or Plasma Ordered By: Frankie Galindo on 01-06-2025 Anion gap [Moles/Vol] 12 mmol/L 5-15 [facility] Automated lymphocyte count a s percentage of total leukocytesOrdered By: Frankie Galindo on 01-06-2025 Lymphocytes/100 WBC Auto (Unsp spec) 4.8 % Low 19-41 [facility] BUN/creatinine ratioOrdered By: Frankie Galindo on 01-06-2025 Urea nitrogen/Creatinine [Mass ratio] 14.2 mg/mg 10-20 [facility] Basophil percentageOrdered B y: Frankie Galindo on 01-06-2025 Basophils/100 WBC (Bld) 0.2 % 0-1 [facility] Carbon dioxide, total [Moles /volume] in Central venous bloodOrdered By: Frankie Galindo on 01-06-2025 CO2 [Moles/Vol] 27.9 mmol/L 21.0-32.0 [facility] Chloride assayOrdered By: Osiel Galindo on 01-06-2025 Chloride [Moles/Vol] 98 mmol/L 98-108 [facility] Eosinophil percentageOrdered By: Frankie Galindo on 01-06-2025 Eosinophils/100 WBC (Bld) 0.1 % 0-5 [facility] Erythrocyte distribution wid th ratioOrdered By: Frankie Galindo on 01-06-2025 Erythrocyte distribution width (RBC) [Ratio] 15.3 % High 11.6-14.6 [facility] Erythrocyte distribution wid th standard deviationOrdered By: Frankie Galindo on 01-06-2025 Erythrocyte distribution width (RBC) [Ratio] 49.7 fl High 35.1-43.9 [facility] Glomerular filtration rate ( GFR) estimation/1.73 sq m using serum, plasma, or whole bOrdered By: Frankie Galindo on 01-06-2025 GFR/1.73 sq M.predicted among non-blacks MDRD (S/P/Bld) [Vol rate/Area] 52 mL/min/{1.73_m2} Low >60 [facility] Hematocrit Auto (Bld) [Volum e fraction]Ordered By: Frankie Galindo on 01-06-2025 Hematocrit (Bld) [Volume fraction] 35.8 % Low 40-54 [facility] Hemoglobin measurementOrdere d By: Frankie Galindo on 01-06-2025 Hemoglobin (Bld) [Mass/Vol] 11.2 g/dL Low 13.0-16.5 [facility] Immature granulocytes/100 WB C Auto (Bld)Ordered By: Frankie Galindo on 01-06-2025 Immature granulocytes/100 WBC (Bld) 0.300 % 0.0-0.9 [facility] MCV (mean corpuscular volume ) determinationOrdered By: Frankie Galindo on 01-06-2025 MCV (RBC) [Entitic vol] 88.8 fL 80-94 [facility] Magnesium measurement (mass/ volume)Ordered By: Frankie Galindo on 01-06-2025 Magnesium (Unsp spec) [Mass/Vol] 2.1 mg/dL 1.5-2.2 [facility] Mean corpuscular hemoglobin (MCH) determinationOrdered By: Frankie Galindo on 01-06-2025 MCH (RBC) [Entitic mass] 27.8 pg 27.0-32.0 [facility] Monocyte percentageOrdered B y: Frankie Galindo on 01-06-2025 Monocytes/100 WBC (Bld) 7.0 % 0-10 [facility] Neutrophil percentageOrdered By: Frankie Galindo on 01-06-2025 Neutrophils/100 WBC (Bld) 87.6 % High 47-70 [facility] Platelet countOrdered By: Osiel Galindo on 01-06-2025 Platelets (Bld) [#/Vol] 385 10*3/uL 150-450 [facility] Potassium measurement (mass/ volume)Ordered By: Frankie Galindo on 01-06-2025 Potassium (Unsp spec) [Mass/Vol] 4.9 mmol/L 3.3-5.1 [facility] RBC Auto (Bld) [#/Vol]Ordere d By: Frankie Galindo on 01-06-2025 RBC (Bld) [#/Vol] 4.03 10*6/uL Low 4.6-6.2 [facility] Serum creatinine measurement (mass/volume)Ordered By: Frankie Galindo on 01-06-2025 Creatinine [Mass/Vol] 1.41 mg/dL High 0.70-1.20 [facility] Serum glucose measurement (m ass/volume)Ordered By: Frankie Galindo on 01-06-2025 Glucose [Mass/Vol] 111 mg/dL High 70-99 [facility] Serum or plasma calcium luis urement (mass/volume)Ordered By: Frankie Galindo on 01-06-2025 Calcium [Mass/Vol] 9.3 mg/dL 7.6-11.0 [facility] Serum or plasma urea nitroge n measurement (mass/volume)Ordered By: Frankie Galindo on 01-06-2025 Urea nitrogen [Mass/Vol] 20 mg/dL High 4-19 [facility] Sodium levelOrdered By: Matthew Galindo on 01-06-2025 Sodium [Moles/Vol] 138 mmol/L 133-145 [facility] Troponin T.cardiac [Mass/vol ume] in Serum or Plasma by High sensitivity methodOrdered By: Frankie Yi on 01-06-2025 Troponin T.cardiac High sensitivity method [Mass/Vol] 26 ng/L High <22 [facility] Troponin T.cardiac High sensitivity method [Mass/Vol] 23 ng/L High <22 [facility] White blood cell (WBC) count Ordered By: Frankie Galindo on 01-06-2025 WBC (Bld) [#/Vol] 12.0 10*3/uL High 4.4-11.0 [facility] Absolute lymphocyte countOrd ered By: Fco Monroy on 01-05-2025 Lymphocytes Auto (Unsp spec) [#/Vol] 1.45 10*3/uL 0.83-4.51 [facility] Anion gap in Serum or Plasma Ordered By: Fco Monroy on 01-05-2025 Anion gap [Moles/Vol] 14 mmol/L 5-15 [facility] Assessment of wrist artery p atency prior to arterial punctureOrdered By: Fco Monroy on 01-05-2025 Arterial patency Wrist artery --pre arterial puncture Positive [facility] Automated lymphocyte count a s percentage of total leukocytesOrdered By: Fco Monroy on 01-05-2025 Lymphocytes/100 WBC Auto (Unsp spec) 14.2 % Low 19-41 [facility] BUN/creatinine ratioOrdered By: Fco Monroy on 01-05-2025 Urea nitrogen/Creatinine [Mass ratio] 18.8 mg/mg 10- [facility] Basophil percentageOrdered B y: Fco Monroy on 01-05-2025 Basophils/100 WBC (Bld) 0.4 % 0-1 [facility] Bilirubin, totalOrdered By: Fco Monroy on 01-05-2025 Bilirubin [Mass/Vol] 0.25 mg/dL 0.00-1.30 [facility] Blood base excess determinat ionOrdered By: Fco Monroy on 01-05-2025 Base excess Calc (BldV) [Moles/Vol] 9 mmol/L High -2-2 [facility] Blood bicarbonate measuremen tOrdered By: Fco Monroy on 01-05-2025 HCO3 (Bld) [Moles/Vol] 33.0 mmol/L High 22-26 [facility] Blood cultureOrdered By: Sebastien Galindo on 01-05-2025 Bacteria identified Cx Nom (Bld) No growth in 5 days. [facility] CBC W/Diff, Automatedon 12-18 Absolute Lymph 1.45 X10 3/uL Normal 0.83-4.51 [facility] Comment on above: Performed By: #### L 100.0100, [id number], [id number] ####[facility] [id number] [place], [address] Absolute Neut 7.8 X10 3/uL High 2.0-7.7 [facility] Comment on above: Performed By: #### L 100.0100, [id number], [id number] ####[facility] [id number] [place], [address] Basophils/100 WBC (Bld) 0.4 % Normal 0-1 [facility] Comment on above: Performed By: #### L 100.0100, [id number], [id number] ####[facility] [id number] [place], [address] Eosinophils/100 WBC (Bld) 1.2 % Normal 0-5 [facility] Comment on above: Performed By: #### L 100.0100, [id number], [id number] ####[facility] [id number] [place], [address] Erythrocyte distribution width (RBC) [Ratio] 15.1 % High 11.6-14.6 [facility] Comment on above: Performed By: #### L 100.0100, [id number], [id number] ####[facility] [id number] [place], [address] Hematocrit (Bld) [Volume fraction] 39.6 % Low 40-54 [facility] Comment on above: Performed By: #### L 100.0100, [id number], [id number] ####[facility] [id number] [place], [address] Hemoglobin (Bld) [Mass/Vol] 12.6 g/dL Low 13.0-16.5 [facility] Comment on above: Performed By: #### L 100.0100, [id number], [id number] ####[facility] [id number] [place], [address] IG% 0.500 Normal 0.0-0.9 [facility] Comment on above: Result Comment: IG% - Immature Granulocytes (promyelocytes, myelocytes andmetamyelocytes) > 1% indicates that a LEFT SHIFT is Present. Performed By: #### L 100.0100, [id number], [id number] ####[facility] [id number] [place], [address] Lymphocytes/100 WBC (Bld) 14.2 % Low 19-41 [facility] Comment on above: Performed By: #### L 100.0100, [id number], [id number] ####[facility] [facility] [address] [place], [address] MCH (RBC) [Entitic mass] 27.8 pg Normal 27.0-32.0 [facility] Comment on above: Performed By: #### L 100.0100, L500.4050, L503.6005 ####[facility] [address] [place], [address] MCHC (RBC) [Mass/Vol] 31.8 g/dL Low 32-36 [facility] Comment on above: Performed By: #### L 100.0100, L500.4050, [id number] ####[facility] [address] [place], [address] MCV (RBC) [Entitic vol] 87.4 fL Normal 80-94 [facility] Comment on above: Performed By: #### L 100.0100, L500.4050, [id number] ####[facility] [address] [place], [address] Monocytes/100 WBC (Bld) 7.0 % Normal 0-10 [facility] Comment on above: Performed By: #### L 100.0100, L500.4050, [id number] ####[facility] [address] [place], [address] Neutrophils/100 WBC (Bld) 76.7 % High 47-70 [facility] Comment on above: Performed By: #### L 100.0100, L500.4050, [id number] ####[facility] [address] [place], [address] Nucleated RBC (Bld) [#/Vol] 0 10*3/uL Normal 0-5 [facility] Comment on above: Performed By: #### L 100.0100, L500.4050, [id number] ####[facility] [address] [place], [address] Platelet mean volume (Bld) [Entitic vol] 9.8 fL Normal 6.2-12.0 [facility] Comment on above: Performed By: #### L 100.0100, L500.4050, [id number] ####[facility] [address] [place], [address] Platelets (Bld) [#/Vol] 462 10*3/uL High 150-450 [facility] Comment on above: Performed By: #### L 100.0100, L500.4050, [id number] ####[facility] [address] [place], [address] RBC (Bld) [#/Vol] 4.53 10*6/uL Low 4.6-6.2 [facility] Comment on above: Performed By: #### L 100.0100, L500.4050, [id number] ####[facility] [address] [place], [address] RDW SD 48.0 fl High 35.1-43.9 [facility] Comment on above: Performed By: #### L 100.0100, L500.4050, [id number] ####[facility] [address] [place], [address] WBC (Bld) [#/Vol] 10.2 10*3/uL Normal 4.4-11.0 [facility] Comment on above: Performed By: #### L 100.0100, L500.4050, [id number] ####[facility] [address] [place], [address] Carbon dioxide, total [Moles /volume] in Central venous bloodOrdered By: Fco Monroy on 01-05-2025 CO2 [Moles/Vol] 28.4 mmol/L 21.0-32.0 [facility] Chloride assayOrdered By: Ug o Monroy on 01-05-2025 Chloride [Moles/Vol] 93 mmol/L Low 98-108 [facility] Comprehensive Metabolic Prof ilon 01-05-2025 Albumin [Mass/Vol] 4.6 g/dL Normal 3.4-4.8 [facility] Comment on above: Performed By: #### L 100.0100, L500.4050, [id number] ####[facility] [address] [place], [address] Albumin/Globulin [Mass ratio] 1.4 {ratio} Normal 0.9-2.4 [facility] Comment on above: Performed By: #### L 100.0100, L500.4050, [id number] ####[facility] [address] [place], [address] ALK PHOS 83 U/L Normal 40-129 [facility] Comment on above: Performed By: #### L 100.0100, L500.4050, [id number] ####[facility] [address] [place], [address] ALT [Catalytic activity/Vol] 33 U/L Normal <=46 [facility] Comment on above: Performed By: #### L 100.0100, L500.4050, [id number] ####[facility] [address] [place], [address] AST [Catalytic activity/Vol] 32 U/L Normal <=37 [facility] Comment on above: Result Comment: Hemo lysis present, Results??could be affected.?? Performed By: #### L 100.0100, L500.4050, L503.6005 ####[facility] [address] [place], [address] Bilirubin [Mass/Vol] 0.25 mg/dL Normal 0.00-1.30 [facility] Comment on above: Performed By: #### L 100.0100, L500.4050, [id number] ####[facility] [address] [place], [address] BUN/CRE 18.8 RATIO Normal 10-20 [facility] Comment on above: Performed By: #### L 100.0100, L500.4050, [id number] ####[facility] [address] [place], [address] Calcium [Mass/Vol] 10.3 mg/dL Normal 7.6-11.0 [facility] Comment on above: Performed By: #### L 100.0100, L500.4050, [id number] ####[facility] [address] [place], [address] Chloride [Moles/Vol] 93 mmol/L Low 98-108 [facility] Comment on above: Performed By: #### L 100.0100, L500.4050, [id number] ####[facility] [address] [place], [address] CO2 [Moles/Vol] 28.4 mmol/L Normal 21.0-32.0 [facility] Comment on above: Performed By: #### L 100.0100, L500.4050, [id number] ####[facility] [address] [place], [address] Creatinine [Mass/Vol] 1.25 mg/dL High 0.70-1.20 [facility] Comment on above: Performed By: #### L 100.0100, L500.4050, [id number] ####[facility] [address] [place], [address] ECRCL 54.46 ml/min Normal 50-250 [facility] Comment on above: Performed By: #### L 100.0100, L500.4050, [id number] ####[facility] [address] [place], [address] GAP 14 Normal 5-15 [facility] Comment on above: Performed By: #### L 100.0100, L500.4050, L503.6005 ####[facility] [address] [place], [address] GFR/1.73 sq M.predicted among non-blacks MDRD (S/P/Bld) [Vol rate/Area] 60 mL/min/{1.73_m2} Normal >60 [facility] Comment on above: Result Comment: mL/m in/1.73m2 CKD-EPI Creatinine Equation (2020) Performed By: #### L 100.0100, L500.4050, L503.6005 ####[facility] [address] [place], [address] Globulin (S) [Mass/Vol] 3.2 g/dL Normal 2.2-4.2 [facility] Comment on above: Performed By: #### L 100.0100, L500.4050, [id number] ####[facility] [address] [place], [address] Glucose [Mass/Vol] 123 mg/dL High 70-99 [facility] Comment on above: Performed By: #### L 100.0100, L500.4050, [id number] ####[facility] [address] [place], [address] Potassium [Moles/Vol] 4.3 mmol/L Normal 3.3-5.1 [facility] Comment on above: Result Comment: Hemo lysis present, Results??could be affected.?? Performed By: #### L 100.0100, L500.4050, L503.6005 ####[facility] [address] [place], [address] Sodium [Moles/Vol] 135 mmol/L Normal 133-145 [facility] Comment on above: Performed By: #### L 100.0100, L500.4050, L503.6005 ####[facility] [address] [place], [address] T PROT 7.8 g/dL Normal 5.9-8.4 [facility] Comment on above: Performed By: #### L 100.0100, L500.4050, L503.6005 ####[facility] [address] [place], [address] Urea nitrogen [Mass/Vol] 24 mg/dL High 4-19 [facility] Comment on above: Performed By: #### L 100.0100, L500.4050, L503.6005 ####[facility] [address] [place], [address] Eosinophil percentageOrdered By: Fco Monroy on 01-05-2025 Eosinophils/100 WBC (Bld) 1.2 % 0-5 [facility] Erythrocyte distribution wid th ratioOrdered By: Fco Monroy on 01-05-2025 Erythrocyte distribution width (RBC) [Ratio] 15.1 % High 11.6-14.6 [facility] Erythrocyte distribution wid th standard deviationOrdered By: Fco Monroy on 01-05-2025 Erythrocyte distribution width (RBC) [Ratio] 48.0 fl High 35.1-43.9 [facility] Glomerular filtration rate ( GFR) estimation/1.73 sq m using serum, plasma, or whole bOrdered By: Fco Monroy on 01-05-2025 GFR/1.73 sq M.predicted among non-blacks MDRD (S/P/Bld) [Vol rate/Area] 60 mL/min/{1.73_m2} >60 [facility] Gram stainOrdered By: Frankie Galindo on 01-05-2025 Microscopic observation Gram stain Nom (Unsp spec) [facility] Hematocrit Auto (Bld) [Volum e fraction]Ordered By: Fco Monroy on 01-05-2025 Hematocrit (Bld) [Volume fraction] 39.6 % Low 40-54 [facility] Hemoglobin measurementOrdere d By: Fco Monroy on 01-05-2025 Hemoglobin (Bld) [Mass/Vol] 12.6 g/dL Low 13.0-16.5 [facility] Immature granulocytes/100 WB C Auto (Bld)Ordered By: Fco Monroy on 01-05-2025 Immature granulocytes/100 WBC (Bld) 0.500 % 0.0-0.9 [facility] Lactic Acidon 01-05-2025 Lactate [Moles/Vol] 1.1 mmol/L Normal 0.0-2.0 [facility] Comment on above: Order Comment: Y Performed By: #### L 100.0100, L500.4050, L503.6005 ####[facility] [address] [place], [place], [address] MCV (mean corpuscular volume ) determinationOrdered By: Fco Monroy on 01-05-2025 MCV (RBC) [Entitic vol] 87.4 fL 80-94 [facility] Mean corpuscular hemoglobin (MCH) determinationOrdered By: Fco Monroy on 01-05-2025 MCH (RBC) [Entitic mass] 27.8 pg 27.0-32.0 [facility] Measurement, pHOrdered By: Tahira Monroy on 01-05-2025 pH (Unsp spec) 7.45 [pH] 7.35-7.45 [facility] Microbial respiratory cultur eOrdered By: Frankie Galindo on 01-05-2025 Microorganism identified Cx Nom (Unsp spec) Proteus mirabilis Abnormal [facility] Monocyte percentageOrdered B y: Fco Monroy on 01-05-2025 Monocytes/100 WBC (Bld) 7.0 % 0-10 [facility] Neutrophil percentageOrdered By: Fco Monroy on 01-05-2025 Neutrophils/100 WBC (Bld) 76.7 % High 47-70 [facility] No Panel InformationOrdered By: Fco Monroy on 01-05-2025 ART [facility] L Radial [facility] Not entered [facility] Cannula [facility] 32 U/L <38 [facility] Platelet countOrdered By: Kellen Monroy on 01-05-2025 Platelets (Bld) [#/Vol] 462 10*3/uL High 150-450 [facility] Potassium measurement (mass/ volume)Ordered By: Fco Monroy on 01-05-2025 Potassium (Unsp spec) [Mass/Vol] 4.3 mmol/L 3.3-5.1 [facility] RBC Auto (Bld) [#/Vol]Ordere d By: Fco Monroy on 01-05-2025 RBC (Bld) [#/Vol] 4.53 10*6/uL Low 4.6-6.2 [facility] Respiratory pathogens detect ion panel by molecular detection methodOrdered By: Frankie Galindo on 01-05-2025 Respiratory pathogens DNA and RNA panel ALEENA+probe (Resp) [facility] [id number] By: Frankie Galindo on 01-05-2025 SARS-CoV-2 (COVID-19) RNA ALEENA+probe Ql (Unsp spec) [facility] Serum creatinine measurement (mass/volume)Ordered By: Fco Monroy on 01-05-2025 Creatinine [Mass/Vol] 1.25 mg/dL High 0.70-1.20 [facility] Serum globulin measurementOr dered By: Fco Monroy on 01-05-2025 Globulin (S) [Mass/Vol] 3.2 g/dL 2.2-4.2 [facility] Serum glucose measurement (m ass/volume)Ordered By: Fco Monroy on 01-05-2025 Glucose [Mass/Vol] 123 mg/dL High 70-99 [facility] Serum or plasma alanine saul otransferase (ALT) measurementOrdered By: Fco Monroy on 01-05-2025 ALT [Catalytic activity/Vol] 33 U/L <47 [facility] Serum or plasma albumin luis urement (mass/volume)Ordered By: Fco Monroy on 01-05-2025 Albumin [Mass/Vol] 4.6 g/dL 3.4-4.8 [facility] Serum or plasma albumin/glob ulin mass ratioOrdered By: Fco Monroy on 01-05-2025 Albumin/Globulin [Mass ratio] 1.4 {ratio} 0.9-2.4 [facility] Serum or plasma alkaline kathleen sphatase measurementOrdered By: Fco Monroy on 01-05-2025 ALP [Catalytic activity/Vol] 83 U/L 40-129 [facility] Serum or plasma calcium luis urement (mass/volume)Ordered By: Fco Monroy on 01-05-2025 Calcium [Mass/Vol] 10.3 mg/dL 7.6-11.0 [facility] Serum or plasma urea nitroge n measurement (mass/volume)Ordered By: Fco Monroy on 01-05-2025 Urea nitrogen [Mass/Vol] 24 mg/dL High 4-19 [facility] Sodium levelOrdered By: Fco Monroy on 01-05-2025 Sodium [Moles/Vol] 135 mmol/L 133-145 [facility] Total carbon dioxide measure mentOrdered By: Fco Monroy on 01-05-2025 CO2 [Moles/Vol] 35 mmol/L [facility] Total proteinOrdered By: Fco Monroy on 01-05-2025 Protein [Mass/Vol] 7.8 g/dL 5.9-8.4 [facility] Troponin T.cardiac [Mass/vol ume] in Serum or Plasma by High sensitivity methodOrdered By: Frankie Yi on 01-05-2025 Troponin T.cardiac High sensitivity method [Mass/Vol] 22 ng/L <22 [facility] Urine Legionella pneumophila antigen detectionOrdered By: Frankie Galindo on 01-05-2025 L. pneumophila Ag Ql (U) [facility] White blood cell (WBC) count Ordered By: Fco Monroy on 01-05-2025 WBC (Bld) [#/Vol] 10.2 10*3/uL 4.4-11.0 [facility] Abdomen Single View (Portabl e)on 01-03-2025 Abdomen Single View (Portable) Normal [facility] Brain/Head without Contrasto n 01-03-2025 Brain/Head without Contrast Normal [facility] Emergency Department Summary on 01-03-2025 Emergency Department Summary Normal [facility] Pelvis 1 or 2 Viewson 2024 Pelvis 1 or 2 Views Normal [facility] Spine Cervical without Contr ason 01-03-2025 Spine Cervical without Contras Normal [facility] Anion gap in Serum or Plasma Ordered By: Lorraine Mena on 12-31-2024 Anion gap [Moles/Vol] 12 mmol/L 5-15 [facility] BUN/creatinine ratioOrdered By: Lorraine Mena on 12-31-2024 Urea nitrogen/Creatinine [Mass ratio] 21.5 mg/mg High 10-20 [facility] Bilirubin, totalOrdered By: Lorraine Mena on 12-31-2024 Bilirubin [Mass/Vol] 0.17 mg/dL 0.00-1.30 [facility] Carbon dioxide, total [Moles /volume] in Central venous bloodOrdered By: Lorraine Mena on 12-31-2024 CO2 [Moles/Vol] 30.5 mmol/L 21.0-32.0 [facility] Chloride assayOrdered By: Ledy Mena on 12-31-2024 Chloride [Moles/Vol] 95 mmol/L Low 98-108 [facility] Glomerular filtration rate ( GFR) estimation/1.73 sq m using serum, plasma, or whole bOrdered By: Lorraine Mena on 12-31-2024 GFR/1.73 sq M.predicted among non-blacks MDRD (S/P/Bld) [Vol rate/Area] 64 mL/min/{1.73_m2} >60 [facility] No Panel InformationOrdered By: Lorraine Mena on 12-31-2024 34 U/L <38 [facility] Potassium measurement (mass/ volume)Ordered By: Lorraine Mena on 12-31-2024 Potassium (Unsp spec) [Mass/Vol] 3.9 mmol/L 3.3-5.1 [facility] Serum creatinine measurement (mass/volume)Ordered By: Lorraine Mena on 12-31-2024 Creatinine [Mass/Vol] 1.19 mg/dL 0.70-1.20 [facility] Serum globulin measurementOr dered By: Lorraine Mena on 12-31-2024 Globulin (S) [Mass/Vol] 2.9 g/dL 2.2-4.2 [facility] Serum glucose measurement (m ass/volume)Ordered By: Lorraine Mena on 12-31-2024 Glucose [Mass/Vol] 110 mg/dL High 70-99 [facility] Serum or plasma alanine saul otransferase (ALT) measurementOrdered By: Lorraine Mena on 12-31-2024 ALT [Catalytic activity/Vol] 35 U/L <47 [facility] Serum or plasma albumin luis urement (mass/volume)Ordered By: Lorraine Mena on 12-31-2024 Albumin [Mass/Vol] 3.9 g/dL 3.4-4.8 [facility] Serum or plasma albumin/glob ulin mass ratioOrdered By: Lorraine Mena on 12-31-2024 Albumin/Globulin [Mass ratio] 1.3 {ratio} 0.9-2.4 [facility] Serum or plasma alkaline kathleen sphatase measurementOrdered By: Lorraine Mena 12-31-2024 ALP [Catalytic activity/Vol] 63 U/L 40-129 [facility] Serum or plasma calcium luis urement (mass/volume)Ordered By: Lorraine Mena on 12-31-2024 Calcium [Mass/Vol] 10.1 mg/dL 7.6-11.0 [facility] Serum or plasma urea nitroge n measurement (mass/volume)Ordered By: Lorraine Mena on 12-31-2024 Urea nitrogen [Mass/Vol] 26 mg/dL High 4-19 [facility] Sodium levelOrdered By: Roselyn Mena on 12-31-2024 Sodium [Moles/Vol] 138 mmol/L 133-145 [facility] Total proteinOrdered By: David Mena on 12-31-2024 Protein [Mass/Vol] 6.9 g/dL 5.9-8.4 [facility] Absolute lymphocyte countOrd ered By: Lorraine Mena on 12-30-2024 Lymphocytes Auto (Unsp spec) [#/Vol] 1.08 10*3/uL 0.83-4.51 [facility] Anion gap in Serum or Plasma Ordered By: Lorraine Mena on 12-30-2024 Anion gap [Moles/Vol] 17 mmol/L High 5-15 [facility] Automated lymphocyte count a s percentage of total leukocytesOrdered By: Lorraine Mena on 12-30-2024 Lymphocytes/100 WBC Auto (Unsp spec) 14.4 % Low 19-41 [facility] BUN/creatinine ratioOrdered By: Lorraine Mena on 12-30-2024 Urea nitrogen/Creatinine [Mass ratio] 20.3 mg/mg High 10-20 [facility] Basophil percentageOrdered B y: Lorraine Mena on 12-30-2024 Basophils/100 WBC (Bld) 0.7 % 0-1 [facility] Bilirubin, totalOrdered By: Lorraine Mena on 12-30-2024 Bilirubin [Mass/Vol] 0.18 mg/dL 0.00-1.30 [facility] Carbon dioxide, total [Moles /volume] in Central venous bloodOrdered By: Lorraine Mena on 12-30-2024 CO2 [Moles/Vol] 28.7 mmol/L 21.0-32.0 [facility] Chloride assayOrdered By: Ledy roelorri Mena on 12-30-2024 Chloride [Moles/Vol] 94 mmol/L Low 98-108 [facility] Eosinophil percentageOrdered By: Lorraine Christinebandaremi on 12-30-2024 Eosinophils/100 WBC (Bld) 0.8 % 0-5 [facility] Erythrocyte distribution wid th ratioOrdered By: Lorraine Mena on 12-30-2024 Erythrocyte distribution width (RBC) [Ratio] 15.0 % High 11.6-14.6 [facility] Erythrocyte distribution wid th standard deviationOrdered By: Lorraine Mena on 12-30-2024 Erythrocyte distribution width (RBC) [Ratio] 47.7 fl High 35.1-43.9 [facility] Glomerular filtration rate ( GFR) estimation/1.73 sq m using serum, plasma, or whole bOrdered By: Lorraine Mena on 12-30-2024 GFR/1.73 sq M.predicted among non-blacks MDRD (S/P/Bld) [Vol rate/Area] 64 mL/min/{1.73_m2} >60 [facility] Hematocrit Auto (Bld) [Volum e fraction]Ordered By: Lorraine Mena on 12-30-2024 Hematocrit (Bld) [Volume fraction] 36.1 % Low 40-54 [facility] Hemoglobin measurementOrdere d By: Lorraine Mena on 12-30-2024 Hemoglobin (Bld) [Mass/Vol] 11.3 g/dL Low 13.0-16.5 [facility] Immature granulocytes/100 WB C Auto (Bld)Ordered By: Lorraine Mena on 12-30-2024 Immature granulocytes/100 WBC (Bld) 0.300 % 0.0-0.9 [facility] MCV (mean corpuscular volume ) determinationOrdered By: Lorraine Mena on 12-30-2024 MCV (RBC) [Entitic vol] 88.3 fL 80-94 [facility] Mean corpuscular hemoglobin (MCH) determinationOrdered By: Lorraine Mena on 12-30-2024 MCH (RBC) [Entitic mass] 27.6 pg 27.0-32.0 [facility] Monocyte percentageOrdered B y: Lorraine Mena on 12-30-2024 Monocytes/100 WBC (Bld) 9.6 % 0-10 [facility] Neutrophil percentageOrdered By: Lorraine Mena on 12-30-2024 Neutrophils/100 WBC (Bld) 74.2 % High 47-70 [facility] No Panel InformationOrdered By: Lorraine Mena on 12-30-2024 34 U/L <38 [facility] Platelet countOrdered By: Ledy Mena on 12-30-2024 Platelets (Bld) [#/Vol] 353 10*3/uL 150-450 [facility] Potassium measurement (mass/ volume)Ordered By: Lorraine Mena on 12-30-2024 Potassium (Unsp spec) [Mass/Vol] 4.2 mmol/L 3.3-5.1 [facility] RBC Auto (Bld) [#/Vol]Ordere d By: Lorraine Mena on 12-30-2024 RBC (Bld) [#/Vol] 4.09 10*6/uL Low 4.6-6.2 [facility] Serum creatinine measurement (mass/volume)Ordered By: Lorraine Mena on 12-30-2024 Creatinine [Mass/Vol] 1.19 mg/dL 0.70-1.20 [facility] Serum globulin measurementOr dered By: Lorraine Mena on 12-30-2024 Globulin (S) [Mass/Vol] 2.2 g/dL 2.2-4.2 [facility] Serum glucose measurement (m ass/volume)Ordered By: Lorraine Mena on 12-30-2024 Glucose [Mass/Vol] 105 mg/dL High 70-99 [facility] Serum or plasma alanine saul otransferase (ALT) measurementOrdered By: Lorraine Mena on 12-30-2024 ALT [Catalytic activity/Vol] 34 U/L <47 [facility] Serum or plasma albumin luis urement (mass/volume)Ordered By: Lorraine Mena on 12-30-2024 Albumin [Mass/Vol] 4.0 g/dL 3.4-4.8 [facility] Serum or plasma albumin/glob ulin mass ratioOrdered By: Lorraine Mena on 12-30-2024 Albumin/Globulin [Mass ratio] 1.8 {ratio} 0.9-2.4 [facility] Serum or plasma alkaline kathleen sphatase measurementOrdered By: Lorraine Mena on 12-30-2024 ALP [Catalytic activity/Vol] 62 U/L 40-129 [facility] Serum or plasma calcium luis urement (mass/volume)Ordered By: Lorraine Mena on 12-30-2024 Calcium [Mass/Vol] 9.8 mg/dL 7.6-11.0 [facility] Serum or plasma carbamazepin e level (mass/volume)Ordered By: Lorraine Mena on 12-30-2024 carBAMazepine [Mass/Vol] 10.8 ug/mL 4.0-12.0 [facility] Serum or plasma urea nitroge n measurement (mass/volume)Ordered By: Lorraine Mena on 12-30-2024 Urea nitrogen [Mass/Vol] 24 mg/dL High 4-19 [facility] Sodium levelOrdered By: Roselyn Mena on 12-30-2024 Sodium [Moles/Vol] 140 mmol/L 133-145 [facility] Total proteinOrdered By: David Mena on 12-30-2024 Protein [Mass/Vol] 6.3 g/dL 5.9-8.4 [facility] White blood cell (WBC) count Ordered By: Lorraine Mena on 12-30-2024 WBC (Bld) [#/Vol] 7.5 10*3/uL 4.4-11.0 [facility] Absolute lymphocyte countOrd ered By: Shilpa Contreras on 12-26-2024 Lymphocytes Auto (Unsp spec) [#/Vol] 0.66 10*3/uL Low 0.83-4.51 [facility] Anion gap in Serum or Plasma Ordered By: Shilpa Contreras on 12-26-2024 Anion gap [Moles/Vol] 12 mmol/L 5-15 [facility] Automated lymphocyte count a s percentage of total leukocytesOrdered By: Shilpa Ben on 12-26-2024 Lymphocytes/100 WBC Auto (Unsp spec) 6.5 % Low 19-41 [facility] BUN/creatinine ratioOrdered By: Shilpa Ben on 12-26-2024 Urea nitrogen/Creatinine [Mass ratio] 14.4 mg/mg 10-20 [facility] Basophil percentageOrdered B y: Shilpa Ben on 12-26-2024 Basophils/100 WBC (Bld) 0.3 % 0- [facility] Bilirubin, totalOrdered By: Shilpa Ben on 12-26-2024 Bilirubin [Mass/Vol] 0.23 mg/dL 0.00-1.30 [facility] CBC W/Diff, Automatedon 12-17 Absolute Lymph 0.66 X10 3/uL Low 0.83-4.51 [facility] Comment on above: Performed By: #### L 500.4050, L100.0100 ####[facility] [address] [place], [address] Absolute Neut 8.7 X10 3/uL High 2.0-7.7 [facility] Comment on above: Performed By: #### L 500.4050, L100.0100 ####[facility] [address] [place], [address] Basophils/100 WBC (Bld) 0.3 % Normal 0-1 [facility] Comment on above: Performed By: #### L 500.4050, L100.0100 ####[facility] [address] [place], [address] Eosinophils/100 WBC (Bld) 0.2 % Normal 0-5 [facility] Comment on above: Performed By: #### L 500.4050, L100.0100 ####[facility] [address] [place], [address] Erythrocyte distribution width (RBC) [Ratio] 14.7 % High 11.6-14.6 [facility] Comment on above: Performed By: #### L 500.4050, L100.0100 ####[facility] [address] [place], [address] Hematocrit (Bld) [Volume fraction] 35.8 % Low 40-54 [facility] Comment on above: Performed By: #### L 500.4050, L100.0100 ####[facility] [address] [place], [address] Hemoglobin (Bld) [Mass/Vol] 11.3 g/dL Low 13.0-16.5 [facility] Comment on above: Performed By: #### L 500.4050, L100.0100 ####[facility] [address] [place], [address] IG% 0.500 Normal 0.0-0.9 [facility] Comment on above: Result Comment: IG% - Immature Granulocytes (promyelocytes, myelocytes andmetamyelocytes) > 1% indicates that a LEFT SHIFT is Present. Performed By: #### L 500.4050, L100.0100 ####[facility] [address] [place], [address] Lymphocytes/100 WBC (Bld) 6.5 % Low 19-41 [facility] Comment on above: Performed By: #### L 500.4050, L100.0100 ####[facility] [address] [place], [address] MCH (RBC) [Entitic mass] 27.6 pg Normal 27.0-32.0 [facility] Comment on above: Performed By: #### L 500.4050, L100.0100 ####[facility] [address] [place], [address] MCHC (RBC) [Mass/Vol] 31.6 g/dL Low 32-36 [facility] Comment on above: Performed By: #### L 500.4050, L100.0100 ####[facility] [address] [place], [address] MCV (RBC) [Entitic vol] 87.3 fL Normal 80-94 [facility] Comment on above: Performed By: #### L 500.4050, L100.0100 ####[facility] [address] [place], [address] Monocytes/100 WBC (Bld) 7.8 % Normal 0-10 [facility] Comment on above: Performed By: #### L 500.4050, L100.0100 ####[facility] [address] [place], [address] Neutrophils/100 WBC (Bld) 84.7 % High 47-70 [facility] Comment on above: Performed By: #### L 500.4050, L100.0100 ####[facility] [address] [place], [address] Nucleated RBC (Bld) [#/Vol] 0 10*3/uL Normal 0-5 [facility] Comment on above: Performed By: #### L 500.4050, L100.0100 ####[facility] [address] [place], [address] Platelet mean volume (Bld) [Entitic vol] 10.1 fL Normal 6.2-12.0 [facility] Comment on above: Performed By: #### L 500.4050, L100.0100 ####[facility] [address] [place], [address] Platelets (Bld) [#/Vol] 363 10*3/uL Normal 150-450 [facility] Comment on above: Performed By: #### L 500.4050, L100.0100 ####[facility] [address] [place], [address] RBC (Bld) [#/Vol] 4.10 10*6/uL Low 4.6-6.2 [facility] Comment on above: Performed By: #### L 500.4050, L100.0100 ####[facility] [address] [place], [address] RDW SD 46.5 fl High 35.1-43.9 [facility] Comment on above: Performed By: #### L 500.4050, L100.0100 ####[facility] [address] [place], [address] WBC (Bld) [#/Vol] 10.2 10*3/uL Normal 4.4-11.0 [facility] Comment on above: Performed By: #### L 500.4050, L100.0100 ####[facility] [address] [place], [address] Carbon dioxide, total [Moles /volume] in Central venous bloodOrdered By: Shilpa Ben on 12-26-2024 CO2 [Moles/Vol] 30.3 mmol/L 21.0-32.0 [facility] Chloride assayOrdered By: Kisha solares Ben on 12-26-2024 Chloride [Moles/Vol] 98 mmol/L 98-108 [facility] Comprehensive Metabolic Prof ilon 12-26-2024 Albumin [Mass/Vol] 3.7 g/dL Normal 3.4-4.8 [facility] Comment on above: Performed By: #### L 500.4050, L100.0100 ####[facility] [address] [place], [address] Albumin/Globulin [Mass ratio] 1.6 {ratio} Normal 0.9-2.4 [facility] Comment on above: Performed By: #### L 500.4050, L100.0100 ####[facility] [address] [place], [address] ALK PHOS 67 U/L Normal 40-129 [facility] Comment on above: Performed By: #### L 500.4050, L100.0100 ####[facility] [address] [place], [address] ALT [Catalytic activity/Vol] 19 U/L Normal <=46 [facility] Comment on above: Performed By: #### L 500.4050, L100.0100 ####[facility] [address] [place], [address] AST [Catalytic activity/Vol] 22 U/L Normal <=37 [facility] Comment on above: Performed By: #### L 500.4050, L100.0100 ####[facility] [address] [place], [address] Bilirubin [Mass/Vol] 0.23 mg/dL Normal 0.00-1.30 [facility] Comment on above: Performed By: #### L 500.4050, L100.0100 ####[facility] [address] [place], [address] BUN/CRE 14.4 RATIO Normal 10-20 [facility] Comment on above: Performed By: #### L 500.4050, L100.0100 ####[facility] [address] [place], [address] Calcium [Mass/Vol] 9.7 mg/dL Normal 7.6-11.0 [facility] Comment on above: Performed By: #### L 500.4050, L100.0100 ####[facility] [address] [place], [address] Chloride [Moles/Vol] 98 mmol/L Normal 98-108 [facility] Comment on above: Performed By: #### L 500.4050, L100.0100 ####[facility] [address] [place], [address] CO2 [Moles/Vol] 30.3 mmol/L Normal 21.0-32.0 [facility] Comment on above: Performed By: #### L 500.4050, L100.0100 ####[facility] [address] [place], [address] Creatinine [Mass/Vol] 1.07 mg/dL Normal 0.70-1.20 [facility] Comment on above: Performed By: #### L 500.4050, L100.0100 ####[facility] [address] [place], [address] ECRCL 57.71 ml/min Normal 50-250 [facility] Comment on above: Performed By: #### L 500.4050, L100.0100 ####[facility] [address] [place], [address] GAP 12 Normal 5-15 [facility] Comment on above: Performed By: #### L 500.4050, L100.0100 ####[facility] [address] [place], [address] GFR/1.73 sq M.predicted among non-blacks MDRD (S/P/Bld) [Vol rate/Area] 72 mL/min/{1.73_m2} Normal >60 [facility] Comment on above: Result Comment: mL/m in/1.73m2 CKD-EPI Creatinine Equation (2020) Performed By: #### L 500.4050, L100.0100 ####[facility] [address] [place], [address] Globulin (S) [Mass/Vol] 2.3 g/dL Normal 2.2-4.2 [facility] Comment on above: Performed By: #### L 500.4050, L100.0100 ####[facility] [address] [place], [address] Glucose [Mass/Vol] 142 mg/dL High 70-99 [facility] Comment on above: Performed By: #### L 500.4050, L100.0100 ####[facility] [address] [place], [address] Potassium [Moles/Vol] 3.4 mmol/L Normal 3.3-5.1 [facility] Comment on above: Performed By: #### L 500.4050, L100.0100 ####[facility] [address] [place], [address] Sodium [Moles/Vol] 140 mmol/L Normal 133-145 [facility] Comment on above: Performed By: #### L 500.4050, L100.0100 ####[facility] [address] [place], [address] T PROT 6.0 g/dL Normal 5.9-8.4 [facility] Comment on above: Performed By: #### L 500.4050, L100.0100 ####[facility] [address] [place], [place], [address] Urea nitrogen [Mass/Vol] 15 mg/dL Normal 4-19 [facility] Comment on above: Performed By: #### L 500.4050, L100.0100 ####[facility] [address] [place], [place], [id number] Eosinophil percentageOrdered By: Shilpa Contreras on 12-26-2024 Eosinophils/100 WBC (Bld) 0.2 % 0-5 [facility] Erythrocyte distribution wid th ratioOrdered By: Ben on 12-26-2024 Erythrocyte distribution width (RBC) [Ratio] 14.7 % High 11.6-14.6 [facility] Erythrocyte distribution wid th standard deviationOrdered By: Shilpa Ben on 12-26-2024 Erythrocyte distribution width (RBC) [Ratio] 46.5 fl High 35.1-43.9 [facility] Glomerular filtration rate ( GFR) estimation/1.73 sq m using serum, plasma, or whole bOrdered By: Shilpa Ben on 12-26-2024 GFR/1.73 sq M.predicted among non-blacks MDRD (S/P/Bld) [Vol rate/Area] 72 mL/min/{1.73_m2} >60 [facility] Hematocrit Auto (Bld) [Volum e fraction]Ordered By: Shilpa Contreras 12-26-2024 Hematocrit (Bld) [Volume fraction] 35.8 % Low 40-54 [facility] Hemoglobin measurementOrdere d By: Shilpa Contreras on 12-26-2024 Hemoglobin (Bld) [Mass/Vol] 11.3 g/dL Low 13.0-16.5 [facility] Immature granulocytes/100 WB C Auto (Bld)Ordered By: Shilpa Ben 12-26-2024 Immature granulocytes/100 WBC (Bld) 0.500 % 0.0-0.9 [facility] MCV (mean corpuscular volume ) determinationOrdered By: Shilpa Contreras 12-26-2024 MCV (RBC) [Entitic vol] 87.3 fL 80-94 [facility] Mean corpuscular hemoglobin (MCH) determinationOrdered By: Shilpa Contreras on 12-26-2024 MCH (RBC) [Entitic mass] 27.6 pg 27.0-32.0 [facility] Monocyte percentageOrdered B y: Shilpa Contreras on 12-26-2024 Monocytes/100 WBC (Bld) 7.8 % 0-10 [facility] Neutrophil percentageOrdered By: Shilpa Ben on 12-26-2024 Neutrophils/100 WBC (Bld) 84.7 % High 47-70 [facility] No Panel InformationOrdered By: Shilpa Contreras on 12-26-2024 22 U/L <38 [facility] Platelet countOrdered By: Kisha solares Ben on 12-26-2024 Platelets (Bld) [#/Vol] 363 10*3/uL 150-450 [facility] Potassium measurement (mass/ volume)Ordered By: Shilpa Contreras on 12-26-2024 Potassium (Unsp spec) [Mass/Vol] 3.4 mmol/L 3.3-5.1 [facility] RBC Auto (Bld) [#/Vol]Ordere d By: Shilpa Contreras on 12-26-2024 RBC (Bld) [#/Vol] 4.10 10*6/uL Low 4.6-6.2 [facility] Serum creatinine measurement (mass/volume)Ordered By: Shilpa Contreras on 12-26-2024 Creatinine [Mass/Vol] 1.07 mg/dL 0.70-1.20 [facility] Serum globulin measurementOr dered By: Shilpa Contreras 12-26-2024 Globulin (S) [Mass/Vol] 2.3 g/dL 2.2-4.2 [facility] Serum glucose measurement (m ass/volume)Ordered By: Shilpa Contreras 12-26-2024 Glucose [Mass/Vol] 142 mg/dL High 70-99 [facility] Serum or plasma alanine saul otransferase (ALT) measurementOrdered By: Shilpa Contreras 12-26-2024 ALT [Catalytic activity/Vol] 19 U/L <47 [facility] Serum or plasma albumin luis urement (mass/volume)Ordered By: Shilpa Contreras on 12-26-2024 Albumin [Mass/Vol] 3.7 g/dL 3.4-4.8 [facility] Serum or plasma albumin/glob ulin mass ratioOrdered By: Shilpa Contreras on 12-26-2024 Albumin/Globulin [Mass ratio] 1.6 {ratio} 0.9-2.4 [facility] Serum or plasma alkaline kathleen sphatase measurementOrdered By: Shilpa Ben on 12-26-2024 ALP [Catalytic activity/Vol] 67 U/L 40-129 [facility] Serum or plasma calcium luis urement (mass/volume)Ordered By: Shilpa Contreras on 12-26-2024 Calcium [Mass/Vol] 9.7 mg/dL 7.6-11.0 [facility] Serum or plasma urea nitroge n measurement (mass/volume)Ordered By: Shilpa Contreras on 12-26-2024 Urea nitrogen [Mass/Vol] 15 mg/dL 4-19 [facility] Sodium levelOrdered By: Rovertou mn Ben on 12-26-2024 Sodium [Moles/Vol] 140 mmol/L 133-145 [facility] Total proteinOrdered By: Roverto umn Ben on 12-26-2024 Protein [Mass/Vol] 6.0 g/dL 5.9-8.4 [facility] White blood cell (WBC) count Ordered By: Shilpa Contreras on 12-26-2024 WBC (Bld) [#/Vol] 10.2 10*3/uL 4.4-11.0 [facility] CBC W/Diff, Automatedon 07-0 Absolute Lymph 0.96 X10 3/uL Normal 0.83-4.51 [facility] Comment on above: Performed By: #### L 501.5200, L100.0100, L500.4050 ####[facility] [address] [place], [address] Absolute Neut 9.8 X10 3/uL High 2.0-7.7 [facility] Comment on above: Performed By: #### L 501.5200, L100.0100, L500.4050 ####[facility] [address] [place], [address] Basophils/100 WBC (Bld) 0.3 % Normal 0-1 [facility] Comment on above: Performed By: #### L 501.5200, L100.0100, L500.4050 ####[facility] [address] [place], [address] Eosinophils/100 WBC (Bld) 0.3 % Normal 0-5 [facility] Comment on above: Performed By: #### L 501.5200, L100.0100, L500.4050 ####[facility] [address] [place], [address] Erythrocyte distribution width (RBC) [Ratio] 14.5 % Normal 11.6-14.6 [facility] Comment on above: Performed By: #### L 501.5200, L100.0100, L500.4050 ####[facility] [address] [place], [address] Hematocrit (Bld) [Volume fraction] 40.5 % Normal 40-54 [facility] Comment on above: Performed By: #### L 501.5200, L100.0100, L500.4050 ####[facility] [address] [place], [address] Hemoglobin (Bld) [Mass/Vol] 12.5 g/dL Low 13.0-16.5 [facility] Comment on above: Performed By: #### L 501.5200, L100.0100, L500.4050 ####[facility] [address] [place], [address] IG% 0.700 Normal 0.0-0.9 [facility] Comment on above: Result Comment: IG% - Immature Granulocytes (promyelocytes, myelocytes andmetamyelocytes) > 1% indicates that a LEFT SHIFT is Present. Performed By: #### L 501.5200, L100.0100, L500.4050 ####[facility] [address] [place], [address] Lymphocytes/100 WBC (Bld) 8.0 % Low 19-41 [facility] Comment on above: Performed By: #### L 501.5200, L100.0100, L500.4050 ####[facility] [address] [place], [address] MCH (RBC) [Entitic mass] 27.4 pg Normal 27.0-32.0 [facility] Comment on above: Performed By: #### L 501.5200, L100.0100, L500.4050 ####[facility] [address] [place], [address] MCHC (RBC) [Mass/Vol] 30.9 g/dL Low 32-36 [facility] Comment on above: Performed By: #### L 501.5200, L100.0100, L500.4050 ####[facility] [address] [place], [address] MCV (RBC) [Entitic vol] 88.6 fL Normal 80-94 [facility] Comment on above: Performed By: #### L 501.5200, L100.0100, L500.4050 ####[facility] [address] [place], [address] Monocytes/100 WBC (Bld) 8.4 % Normal 0-10 [facility] Comment on above: Performed By: #### L 501.5200, L100.0100, L500.4050 ####[facility] [address] [place], [address] Neutrophils/100 WBC (Bld) 82.3 % High 47-70 [facility] Comment on above: Performed By: #### L 501.5200, L100.0100, L500.4050 ####[facility] [address] [place], [address] Nucleated RBC (Bld) [#/Vol] 0 10*3/uL Normal 0-5 [facility] Comment on above: Performed By: #### L 501.5200, L100.0100, L500.4050 ####[facility] [address] [place], [address] Platelet mean volume (Bld) [Entitic vol] 10.2 fL Normal 6.2-12.0 [facility] Comment on above: Performed By: #### L 501.5200, L100.0100, L500.4050 ####[facility] [address] [place], [address] Platelets (Bld) [#/Vol] 449 10*3/uL Normal 150-450 [facility] Comment on above: Performed By: #### L 501.5200, L100.0100, L500.4050 ####[facility] [address] [place], [address] RBC (Bld) [#/Vol] 4.57 10*6/uL Low 4.6-6.2 [facility] Comment on above: Performed By: #### L 501.5200, L100.0100, L500.4050 ####[facility] [address] [place], [address] RDW SD 45.9 fl High 35.1-43.9 [facility] Comment on above: Performed By: #### L 501.5200, L100.0100, L500.4050 ####[facility] [address] [place], [address] WBC (Bld) [#/Vol] 12.0 10*3/uL High 4.4-11.0 [facility] Comment on above: Performed By: #### L 501.5200, L100.0100, L500.4050 ####[facility] [address] [place], [address] Comprehensive Metabolic Prof il12-25-2024 Albumin [Mass/Vol] 4.0 g/dL Normal 3.4-4.8 [facility] Comment on above: Performed By: #### L 501.5200, L100.0100, L500.4050 ####[facility] [address] [place], [address] Albumin/Globulin [Mass ratio] 1.5 {ratio} Normal 0.9-2.4 [facility] Comment on above: Performed By: #### L 501.5200, L100.0100, L500.4050 ####[facility] [address] [place], [address] ALK PHOS 74 U/L Normal 40-129 [facility] Comment on above: Performed By: #### L 501.5200, L100.0100, L500.4050 ####[facility] [address] [place], [address] ALT [Catalytic activity/Vol] 22 U/L Normal <=46 [facility] Comment on above: Performed By: #### L 501.5200, L100.0100, L500.4050 ####[facility] [address] [place], [address] AST [Catalytic activity/Vol] 31 U/L Normal <=37 [facility] Comment on above: Performed By: #### L 501.5200, L100.0100, L500.4050 ####[facility] [address] [place], [address] Bilirubin [Mass/Vol] 0.23 mg/dL Normal 0.00-1.30 [facility] Comment on above: Performed By: #### L 501.5200, L100.0100, L500.4050 ####[facility] [address] [place], [address] BUN/CRE 13.4 RATIO Normal 10-20 [facility] Comment on above: Performed By: #### L 501.5200, L100.0100, L500.4050 ####[facility] [address] [place], [address] Calcium [Mass/Vol] 9.5 mg/dL Normal 7.6-11.0 [facility] Comment on above: Performed By: #### L 501.5200, L100.0100, L500.4050 ####[facility] [address] [place], [address] Chloride [Moles/Vol] 101 mmol/L Normal 98-108 [facility] Comment on above: Performed By: #### L 501.5200, L100.0100, L500.4050 ####[facility] [address] [place], [address] CO2 [Moles/Vol] 27.5 mmol/L Normal 21.0-32.0 [facility] Comment on above: Performed By: #### L 501.5200, L100.0100, L500.4050 ####[facility] [address] [place], [address] Creatinine [Mass/Vol] 1.05 mg/dL Normal 0.70-1.20 [facility] Comment on above: Performed By: #### L 501.5200, L100.0100, L500.4050 ####[facility] [address] [place], [address] ECRCL 58.81 ml/min Normal 50-250 [facility] Comment on above: Performed By: #### L 501.5200, L100.0100, L500.4050 ####[facility] [address] [place], [address] GAP 12 Normal 5-15 [facility] Comment on above: Performed By: #### L 501.5200, L100.0100, L500.4050 ####[facility] [address] [place], [address] GFR/1.73 sq M.predicted among non-blacks MDRD (S/P/Bld) [Vol rate/Area] 74 mL/min/{1.73_m2} Normal >60 [facility] Comment on above: Result Comment: mL/m in/1.73m2 CKD-EPI Creatinine Equation (2020) Performed By: #### L 501.5200, L100.0100, L500.4050 ####[facility] [address] [place], [address] Globulin (S) [Mass/Vol] 2.7 g/dL Normal 2.2-4.2 [facility] Comment on above: Performed By: #### L 501.5200, L100.0100, L500.4050 ####[facility] [address] [place], [address] Glucose [Mass/Vol] 118 mg/dL High 70-99 [facility] Comment on above: Performed By: #### L 501.5200, L100.0100, L500.4050 ####[facility] [address] [place], [address] Potassium [Moles/Vol] 3.3 mmol/L Normal 3.3-5.1 [facility] Comment on above: Performed By: #### L 501.5200, L100.0100, L500.4050 ####[facility] [address] [place], [address] Sodium [Moles/Vol] 141 mmol/L Normal 133-145 [facility] Comment on above: Performed By: #### L 501.5200, L100.0100, L500.4050 ####[facility] [address] [place], [address] T PROT 6.7 g/dL Normal 5.9-8.4 [facility] Comment on above: Performed By: #### L 501.5200, L100.0100, L500.4050 ####[facility] [address] [place], [address] Urea nitrogen [Mass/Vol] 14 mg/dL Normal 4-19 [facility] Comment on above: Performed By: #### L 501.5200, L100.0100, L500.4050 ####[facility] [address] [place], [address] Magnesiumon 12-25-2024 Magnesium [Mass/Vol] 2.3 mg/dL High 1.5-2.2 [facility] Comment on above: Performed By: #### L 501.5200, L100.0100, L500.4050 ####[facility] [address] [place], [address] Magnesium measurement (mass/ volume)Ordered By: Sania Peña on 12-25-2024 Magnesium (Unsp spec) [Mass/Vol] 2.3 mg/dL High 1.5-2.2 [facility] Phosphoruson 12-25-2024 Phosphate [Mass/Vol] 2.0 mg/dL Low 2.7-4.5 [facility] Comment on above: Performed By: #### L 501.2300 ####[facility] [id number] [place], [address] CBC W/Diff, Automatedon 07-0 Absolute Lymph 0.72 X10 3/uL Low 0.83-4.51 [facility] [facility] Comment on above: Performed By: #### L 100.0100, L500.4050 ####[facility] [address] [place], [address] Absolute Neut 7.0 X10 3/uL Normal 2.0-7.7 [facility] Comment on above: Performed By: #### L 100.0100, L500.4050 ####[facility] [address] [place], [address] Basophils/100 WBC (Bld) 0.5 % Normal 0-1 [facility] Comment on above: Performed By: #### L 100.0100, L500.4050 ####[facility] [address] [place], [address] Eosinophils/100 WBC (Bld) 0.4 % Normal 0-5 [facility] Comment on above: Performed By: #### L 100.0100, L500.4050 ####[facility] [address] [place], [address] Erythrocyte distribution width (RBC) [Ratio] 14.6 % Normal 11.6-14.6 [facility] Comment on above: Performed By: #### L 100.0100, L500.4050 ####[facility] [address] [place], [address] Hematocrit (Bld) [Volume fraction] 37.0 % Low 40-54 [facility] Comment on above: Performed By: #### L 100.0100, L500.4050 ####[facility] [address] [place], [address] Hemoglobin (Bld) [Mass/Vol] 11.5 g/dL Low 13.0-16.5 [facility] Comment on above: Performed By: #### L 100.0100, L500.4050 ####[facility] [address] [place], [address] IG% 0.500 Normal 0.0-0.9 [facility] Comment on above: Result Comment: IG% - Immature Granulocytes (promyelocytes, myelocytes andmetamyelocytes) > 1% indicates that a LEFT SHIFT is Present. Performed By: #### L 100.0100, L500.4050 ####[facility] [address] [place], [address] Lymphocytes/100 WBC (Bld) 8.5 % Low 19-41 [facility] Comment on above: Performed By: #### L 100.0100, L500.4050 ####[facility] [address] [place], [address] MCH (RBC) [Entitic mass] 27.7 pg Normal 27.0-32.0 [facility] Comment on above: Performed By: #### L 100.0100, L500.4050 ####[facility] [address] [place], [address] MCHC (RBC) [Mass/Vol] 31.1 g/dL Low 32-36 [facility] Comment on above: Performed By: #### L 100.0100, L500.4050 ####[facility] [address] [place], [address] MCV (RBC) [Entitic vol] 89.2 fL Normal 80-94 [facility] Comment on above: Performed By: #### L 100.0100, L500.4050 ####[facility] [address] [place], [address] Monocytes/100 WBC (Bld) 7.7 % Normal 0-10 [facility] Comment on above: Performed By: #### L 100.0100, L500.4050 ####[facility] [address] [place], [address] Neutrophils/100 WBC (Bld) 82.4 % High 47-70 [facility] Comment on above: Performed By: #### L 100.0100, L500.4050 ####[facility] [address] [place], [address] Nucleated RBC (Bld) [#/Vol] 0 10*3/uL Normal 0-5 [facility] Comment on above: Performed By: #### L 100.0100, L500.4050 ####[facility] [address] [place], [address] Platelet mean volume (Bld) [Entitic vol] 9.7 fL Normal 6.2-12.0 [facility] Comment on above: Performed By: #### L 100.0100, L500.4050 ####[facility] [address] [place], [address] Platelets (Bld) [#/Vol] 380 10*3/uL Normal 150-450 [facility] Comment on above: Performed By: #### L 100.0100, L500.4050 ####[facility] [address] [place], [address] RBC (Bld) [#/Vol] 4.15 10*6/uL Low 4.6-6.2 [facility] Comment on above: Performed By: #### L 100.0100, L500.4050 ####[facility] [address] [place], [address] RDW SD 46.6 fl High 35.1-43.9 [facility] Comment on above: Performed By: #### L 100.0100, L500.4050 ####[facility] [address] [place], [address] WBC (Bld) [#/Vol] 8.5 10*3/uL Normal 4.4-11.0 [facility] Comment on above: Performed By: #### L 100.0100, L500.4050 ####[facility] [address] [place], [address] Comprehensive Metabolic Prof [facility] 12-24-2024 Albumin [Mass/Vol] 3.8 g/dL Normal 3.4-4.8 [facility] Comment on above: Performed By: #### L 100.0100, L500.4050 ####[facility] [facility] [address] [place], [address] Albumin/Globulin [Mass ratio] 1.8 {ratio} Normal 0.9-2.4 [facility] Comment on above: Performed By: #### L 100.0100, L500.4050 ####[facility] [address] [place], [address] ALK PHOS 64 U/L Normal 40-129 [facility] Comment on above: Performed By: #### L 100.0100, L500.4050 ####[facility] [address] [place], [address] ALT [Catalytic activity/Vol] 28 U/L Normal <=46 [facility] Comment on above: Performed By: #### L 100.0100, L500.4050 ####[facility] [address] [place], [address] AST [Catalytic activity/Vol] 23 U/L Normal <=37 [facility] Comment on above: Performed By: #### L 100.0100, L500.4050 ####[facility] [address] [place], [address] Bilirubin [Mass/Vol] 0.25 mg/dL Normal 0.00-1.30 [facility] Comment on above: Performed By: #### L 100.0100, L500.4050 ####[facility] [address] [place], [address] BUN/CRE 16.9 RATIO Normal 10-20 [facility] Comment on above: Performed By: #### L 100.0100, L500.4050 ####[facility] [address] [place], [address] Calcium [Mass/Vol] 8.4 mg/dL Normal 7.6-11.0 [facility] Comment on above: Performed By: #### L 100.0100, L500.4050 ####[facility] [address] [place], [address] Chloride [Moles/Vol] 106 mmol/L Normal 98-108 [facility] Comment on above: Performed By: #### L 100.0100, L500.4050 ####[facility] [address] [place], [address] CO2 [Moles/Vol] 23.1 mmol/L Normal 21.0-32.0 [facility] Comment on above: Performed By: #### L 100.0100, L500.4050 ####[facility] [address] [place], [address] Creatinine [Mass/Vol] 0.98 mg/dL Normal 0.70-1.20 [facility] Comment on above: Performed By: #### L 100.0100, L500.4050 ####[facility] [address] [place], [address] ECRCL 63.01 ml/min Normal 50-250 [facility] Comment on above: Performed By: #### L 100.0100, L500.4050 ####[facility] [address] [place], [address] GAP 11 Normal 5-15 [facility] Comment on above: Performed By: #### L 100.0100, L500.4050 ####[facility] [address] [place], [address] GFR/1.73 sq M.predicted among non-blacks MDRD (S/P/Bld) [Vol rate/Area] 81 mL/min/{1.73_m2} Normal >60 [facility] Comment on above: Result Comment: mL/m in/1.73m2 CKD-EPI Creatinine Equation (2020) Performed By: #### L 100.0100, L500.4050 ####[facility] [address] [place], [address] Globulin (S) [Mass/Vol] 2.2 g/dL Normal 2.2-4.2 [facility] Comment on above: Performed By: #### L 100.0100, L500.4050 ####[facility] [address] [place], [address] Glucose [Mass/Vol] 92 mg/dL Normal 70-99 [facility] Comment on above: Performed By: #### L 100.0100, L500.4050 ####[facility] [address] [place], [address] Potassium [Moles/Vol] 3.9 mmol/L Normal 3.3-5.1 [facility] Comment on above: Performed By: #### L 100.0100, L500.4050 ####[facility] [address] [place], [address] Sodium [Moles/Vol] 140 mmol/L Normal 133-145 [facility] Comment on above: Performed By: #### L 100.0100, L500.4050 ####[facility] [address] [place], [address] T PROT 6.0 g/dL Normal 5.9-8.4 [facility] Comment on above: Performed By: #### L 100.0100, L500.4050 ####[facility] [address] [place], [address] Urea nitrogen [Mass/Vol] 17 mg/dL Normal 4-19 [facility] Comment on above: Performed By: #### L 100.0100, L500.4050 ####[facility] [address] [place], [address] Basic Metabolic Profile (BMP )on 12-23-2024 BUN/CRE 16.4 RATIO Normal 10-20 [facility] Comment on above: Performed By: #### L 500.2500, L100.0500 ####[facility] [address] [place], [address] Calcium [Mass/Vol] 8.4 mg/dL Normal 7.6-11.0 [facility] Comment on above: Performed By: #### L 500.2500, L100.0500 ####[facility] [address] [place], [address] Chloride [Moles/Vol] 104 mmol/L Normal 98-108 [facility] Comment on above: Performed By: #### L 500.2500, L100.0500 ####[facility] [address] [place], [address] CO2 [Moles/Vol] 24.1 mmol/L Normal 21.0-32.0 [facility] Comment on above: Performed By: #### L 500.2500, L100.0500 ####[facility] [address] [place], [address] Creatinine [Mass/Vol] 1.02 mg/dL Normal 0.70-1.20 [facility] Comment on above: Performed By: #### L 500.2500, L100.0500 ####[facility] [address] [place], [address] ECRCL 60.54 ml/min Normal 50-250 [facility] Comment on above: Performed By: #### L 500.2500, L100.0500 ####[facility] [address] [place], [address] GAP 11 Normal 5-15 [facility] Comment on above: Performed By: #### L 500.2500, L100.0500 ####[facility] [address] [place], [address] GFR/1.73 sq M.predicted among non-blacks MDRD (S/P/Bld) [Vol rate/Area] 77 mL/min/{1.73_m2} Normal >60 [facility] Comment on above: Result Comment: mL/m in/1.73m2 CKD-EPI Creatinine Equation (2020) Performed By: #### L 500.2500, L100.0500 ####[facility] [address] [place], [address] Glucose [Mass/Vol] 85 mg/dL Normal 70-99 [facility] Comment on above: Performed By: #### L 500.2500, L100.0500 ####[facility] [address] [place], [address] Potassium [Moles/Vol] 3.8 mmol/L Normal 3.3-5.1 [facility] Comment on above: Performed By: #### L 500.2500, L100.0500 ####[facility] [address] [place], [address] Sodium [Moles/Vol] 139 mmol/L Normal 133-145 [facility] Comment on above: Performed By: #### L 500.2500, L100.0500 ####[facility] [address] [place], [address] Urea nitrogen [Mass/Vol] 17 mg/dL Normal 4-19 [facility] Comment on above: Performed By: #### L 500.2500, L100.0500 ####[facility] [address] [place], [address] CBC-Complete Blood Cnt No Di ffon 12-23-2024 Erythrocyte distribution width (RBC) [Ratio] 14.1 % Normal 11.6-14.6 [facility] Comment on above: Performed By: #### L 500.2500, L100.0500 ####[facility] [address] [place], [address] Hematocrit (Bld) [Volume fraction] 36.3 % Low 40-54 [facility] Comment on above: Performed By: #### L 500.2500, L100.0500 ####[facility] [address] [place], [address] Hemoglobin (Bld) [Mass/Vol] 11.2 g/dL Low 13.0-16.5 [facility] Comment on above: Performed By: #### L 500.2500, L100.0500 ####[facility] [address] [place], [address] MCH (RBC) [Entitic mass] 27.7 pg Normal 27.0-32.0 [facility] Comment on above: Performed By: #### L 500.2500, L100.0500 ####[facility] [address] [place], [address] MCHC (RBC) [Mass/Vol] 30.9 g/dL Low 32-36 [facility] Comment on above: Performed By: #### L 500.2500, L100.0500 ####[facility] [address] [place], [address] MCV (RBC) [Entitic vol] 89.9 fL Normal 80-94 [facility] Comment on above: Performed By: #### L 500.2500, L100.0500 ####[facility] [address] [place], [address] Platelet mean volume (Bld) [Entitic vol] 10.0 fL Normal 6.2-12.0 [facility] Comment on above: Performed By: #### L 500.2500, L100.0500 ####[facility] [address] [place], [address] Platelets (Bld) [#/Vol] 376 10*3/uL Normal 150-450 [facility] Comment on above: Performed By: #### L 500.2500, L100.0500 ####[facility] [address] [place], [address] RBC (Bld) [#/Vol] 4.04 10*6/uL Low 4.6-6.2 [facility] Comment on above: Performed By: #### L 500.2500, L100.0500 ####[facility] [address] [place], [address] RDW SD 46.0 fl High 35.1-43.9 [facility] Comment on above: Performed By: #### L 500.2500, L100.0500 ####[facility] [address] [place], [address] WBC (Bld) [#/Vol] 7.5 10*3/uL Normal 4.4-11.0 [facility] Comment on above: Performed By: #### L 500.2500, L100.0500 ####[facility] [address] [place], [address] Duplex ultrasound of carotid artery reportOrdered By: Raul Jensen on 12-23-2024 Study report [facility] Work Phone: EGD Reporton 12-23-2024 EGD Report Normal [facility] MR/POSTOP.ANEon 12-23-2024 MR/POSTOP.ANE Normal [facility] MR/[id number] 12-23-2024 MR/POSTOPAN2 Normal [facility] Basic Metabolic Profile (BMP )on 12-22-2024 BUN/CRE 15.7 RATIO Normal 10-20 [facility] Comment on above: Performed By: #### L 500.2500, L100.0500 ####[facility] [address] [place], [address] Calcium [Mass/Vol] 8.8 mg/dL Normal 7.6-11.0 [facility] Comment on above: Performed By: #### L 500.2500, L100.0500 ####[facility] [address] [place], [address] Chloride [Moles/Vol] 103 mmol/L Normal 98-108 [facility] Comment on above: Performed By: #### L 500.2500, L100.0500 ####[facility] [address] [place], [address] CO2 [Moles/Vol] 24.6 mmol/L Normal 21.0-32.0 [facility] Comment on above: Performed By: #### L 500.2500, L100.0500 ####[facility] [address] [place], [address] Creatinine [Mass/Vol] 1.03 mg/dL Normal 0.70-1.20 [facility] Comment on above: Performed By: #### L 500.2500, L100.0500 ####[facility] [address] [place], [address] ECRCL 59.95 ml/min Normal 50-250 [facility] Comment on above: Performed By: #### L 500.2500, L100.0500 ####[facility] [address] [place], [address] GAP 11 Normal 5-15 [facility] Comment on above: Performed By: #### L 500.2500, L100.0500 ####[facility] [address] [place], [address] GFR/1.73 sq M.predicted among non-blacks MDRD (S/P/Bld) [Vol rate/Area] 76 mL/min/{1.73_m2} Normal >60 [facility] Comment on above: Result Comment: mL/m in/1.73m2 CKD-EPI Creatinine Equation (2020) Performed By: #### L 500.2500, L100.0500 ####[facility] [address] [place], [address] Glucose [Mass/Vol] 84 mg/dL Normal 70-99 [facility] Comment on above: Performed By: #### L 500.2500, L100.0500 ####[facility] [address] [place], [address] Potassium [Moles/Vol] 3.6 mmol/L Normal 3.3-5.1 [facility] Comment on above: Performed By: #### L 500.2500, L100.0500 ####[facility] [address] [place], [address] Sodium [Moles/Vol] 139 mmol/L Normal 133-145 [facility] Comment on above: Performed By: #### L 500.2500, L100.0500 ####[facility] [address] [place], [address] Urea nitrogen [Mass/Vol] 16 mg/dL Normal 4-19 [facility] Comment on above: Performed By: #### L 500.2500, L100.0500 ####[facility] [address] [place], [address] CBC-Complete Blood Cnt No Di ffon 12-22-2024 Erythrocyte distribution width (RBC) [Ratio] 13.8 % Normal 11.6-14.6 [facility] Comment on above: Performed By: #### L 500.2500, L100.0500 ####[facility] [address] [place], [address] Hematocrit (Bld) [Volume fraction] 37.7 % Low 40-54 [facility] Comment on above: Performed By: #### L 500.2500, L100.0500 ####[facility] [address] [place], [address] Hemoglobin (Bld) [Mass/Vol] 11.7 g/dL Low 13.0-16.5 [facility] Comment on above: Performed By: #### L 500.2500, L100.0500 ####[facility] [address] [place], [address] MCH (RBC) [Entitic mass] 27.7 pg Normal 27.0-32.0 [facility] Comment on above: Performed By: #### L 500.2500, L100.0500 ####[facility] [address] [place], [address] MCHC (RBC) [Mass/Vol] 31.0 g/dL Low 32-36 [facility] Comment on above: Performed By: #### L 500.2500, L100.0500 ####[facility] [address] [place], [address] MCV (RBC) [Entitic vol] 89.1 fL Normal 80-94 [facility] Comment on above: Performed By: #### L 500.2500, L100.0500 ####[facility] [address] [place], [address] Platelet mean volume (Bld) [Entitic vol] 10.1 fL Normal 6.2-12.0 [facility] Comment on above: Performed By: #### L 500.2500, L100.0500 ####[facility] [address] [place], [address] Platelets (Bld) [#/Vol] 392 10*3/uL Normal 150-450 [facility] Comment on above: Performed By: #### L 500.2500, L100.0500 ####[facility] [address] [place], [address] RBC (Bld) [#/Vol] 4.23 10*6/uL Low 4.6-6.2 [facility] Comment on above: Performed By: #### L 500.2500, L100.0500 ####[facility] [address] [place], [address] RDW SD 45.0 fl High 35.1-43.9 [facility] Comment on above: Performed By: #### L 500.2500, L100.0500 ####[facility] [address] [place], [address] WBC (Bld) [#/Vol] 7.5 10*3/uL Normal 4.4-11.0 [facility] Comment on above: Performed By: #### L 500.2500, L100.0500 ####[facility] [address] [place], [address] Basic Metabolic Profile (BMP )on 12-21-2024 BUN/CRE 16.2 RATIO Normal 10-20 [facility] Comment on above: Performed By: #### L 100.0100, L500.2500 ####[facility] [address] [place], [address] Calcium [Mass/Vol] 8.3 mg/dL Normal 7.6-11.0 [facility] Comment on above: Performed By: #### L 100.0100, L500.2500 ####[facility] [address] [place], [address] Chloride [Moles/Vol] 105 mmol/L Normal 98-108 [facility] Comment on above: Performed By: #### L 100.0100, L500.2500 ####[facility] [address] [place], [address] CO2 [Moles/Vol] 25.0 mmol/L Normal 21.0-32.0 [facility] Comment on above: Performed By: #### L 100.0100, L500.2500 ####[facility] [address] [place], [address] Creatinine [Mass/Vol] 0.99 mg/dL Normal 0.70-1.20 [facility] Comment on above: Performed By: #### L 100.0100, L500.2500 ####[facility] [address] [place], [address] ECRCL 62.37 ml/min Normal 50-250 [facility] Comment on above: Performed By: #### L 100.0100, L500.2500 ####[facility] [address] [place], [address] GAP 9 Normal 5-15 [facility] Comment on above: Performed By: #### L 100.0100, L500.2500 ####[facility] [address] [place], [address] GFR/1.73 sq M.predicted among non-blacks MDRD (S/P/Bld) [Vol rate/Area] 80 mL/min/{1.73_m2} Normal >60 [facility] Comment on above: Result Comment: mL/m in/1.73m2 CKD-EPI Creatinine Equation (2020) Performed By: #### L 100.0100, L500.2500 ####[facility] [address] [place], [address] Glucose [Mass/Vol] 95 mg/dL Normal 70-99 [facility] Comment on above: Performed By: #### L 100.0100, L500.2500 ####[facility] [address] [place], [address] Potassium [Moles/Vol] 3.5 mmol/L Normal 3.3-5.1 [facility] Comment on above: Performed By: #### L 100.0100, L500.2500 ####[facility] [address] [place], [address] Sodium [Moles/Vol] 139 mmol/L Normal 133-145 [facility] Comment on above: Performed By: #### L 100.0100, L500.2500 ####[facility] [address] [place], [address] Urea nitrogen [Mass/Vol] 16 mg/dL Normal 4-19 [facility] Comment on above: Performed By: #### L 100.0100, L500.2500 ####[facility] [address] [place], [address] CBC W/Diff, Automatedon 07-0 5-2025 Absolute Lymph 0.95 X10 3/uL Normal 0.83-4.51 [facility] Comment on above: Performed By: #### L 100.0100, L500.2500 ####[facility] [address] [place], [address] Absolute Neut 5.0 X10 3/uL Normal 2.0-7.7 [facility] Comment on above: Performed By: #### L 100.0100, L500.2500 ####[facility] [address] [place], [address] Basophils/100 WBC (Bld) 0.6 % Normal 0-1 [facility] Comment on above: Performed By: #### L 100.0100, L500.2500 ####[facility] [address] [place], [address] Eosinophils/100 WBC (Bld) 1.2 % Normal 0-5 [facility] Comment on above: Performed By: #### L 100.0100, L500.2500 ####[facility] [address] [place], [address] Erythrocyte distribution width (RBC) [Ratio] 13.7 % Normal 11.6-14.6 [facility] [facility] Comment on above: Performed By: #### L 100.0100, L500.2500 ####[facility] [address] [place], [address] Hematocrit (Bld) [Volume fraction] 33.8 % Low 40-54 [facility] Comment on above: Performed By: #### L 100.0100, L500.2500 ####[facility] [address] [place], [address] Hemoglobin (Bld) [Mass/Vol] 10.4 g/dL Low 13.0-16.5 [facility] Comment on above: Performed By: #### L 100.0100, L500.2500 ####[facility] [address] [place], [address] IG% 0.400 Normal 0.0-0.9 [facility] Comment on above: Result Comment: IG% - Immature Granulocytes (promyelocytes, myelocytes andmetamyelocytes) > 1% indicates that a LEFT SHIFT is Present. Performed By: #### L 100.0100, L500.2500 ####[facility] [address] [place], [address] Lymphocytes/100 WBC (Bld) 14.2 % Low 19-41 [facility] Comment on above: Performed By: #### L 100.0100, L500.2500 ####[facility] [address] [place], [address] MCH (RBC) [Entitic mass] 27.6 pg Normal 27.0-32.0 [facility] Comment on above: Performed By: #### L 100.0100, L500.2500 ####[facility] [address] [place], [address] MCHC (RBC) [Mass/Vol] 30.8 g/dL Low 32-36 [facility] Comment on above: Performed By: #### L 100.0100, L500.2500 ####[facility] [address] [place], [address] MCV (RBC) [Entitic vol] 89.7 fL Normal 80-94 [facility] Comment on above: Performed By: #### L 100.0100, L500.2500 ####[facility] [address] [place], [address] Monocytes/100 WBC (Bld) 8.5 % Normal 0-10 [facility] Comment on above: Performed By: #### L 100.0100, L500.2500 ####[facility] [address] [place], [address] Neutrophils/100 WBC (Bld) 75.1 % High 47-70 [facility] Comment on above: Performed By: #### L 100.0100, L500.2500 ####[facility] [address] [place], [address] Nucleated RBC (Bld) [#/Vol] 0 10*3/uL Normal 0-5 [facility] Comment on above: Performed By: #### L 100.0100, L500.2500 ####[facility] [address] [place], [address] Platelet mean volume (Bld) [Entitic vol] 9.7 fL Normal 6.2-12.0 [facility] Comment on above: Performed By: #### L 100.0100, L500.2500 ####[facility] [address] [place], [address] Platelets (Bld) [#/Vol] 326 10*3/uL Normal 150-450 [facility] Comment on above: Performed By: #### L 100.0100, L500.2500 ####[facility] [address] [place], [address] RBC (Bld) [#/Vol] 3.77 10*6/uL Low 4.6-6.2 [facility] Comment on above: Performed By: #### L 100.0100, L500.2500 ####[facility] [address] [place], [address] RDW SD 44.7 fl High 35.1-43.9 [facility] Comment on above: Performed By: #### L 100.0100, L500.2500 ####[facility] [address] [place], [address] WBC (Bld) [#/Vol] 6.7 10*3/uL Normal 4.4-11.0 [facility] Comment on above: Performed By: #### L 100.0100, L500.2500 ####[facility] [address] [place], [address] CBC W/Diff, Automatedon 07-0 4-202 Absolute Lymph 0.69 X10 3/uL Low 0.83-4.51 [facility] Comment on above: Performed By: #### L 100.0100 ####[facility] [address] [place], [address] Absolute Neut 5.5 X10 3/uL Normal 2.0-7.7 [facility] Comment on above: Performed By: #### L 100.0100 ####[facility] [address] [place], [address] Basophils/100 WBC (Bld) 0.9 % Normal 0-1 [facility] Comment on above: Performed By: #### L 100.0100 ####[facility] [address] [place], [address] Eosinophils/100 WBC (Bld) 1.2 % Normal 0-5 [facility] Comment on above: Performed By: #### L 100.0100 ####[facility] [address] [place], [address] Erythrocyte distribution width (RBC) [Ratio] 13.7 % Normal 11.6-14.6 [facility] Comment on above: Performed By: #### L 100.0100 ####[facility] [address] [place], [address] Hematocrit (Bld) [Volume fraction] 35.7 % Low 40-54 [facility] Comment on above: Performed By: #### L 100.0100 ####[facility] [address] [place], [address] Hemoglobin (Bld) [Mass/Vol] 10.9 g/dL Low 13.0-16.5 [facility] Comment on above: Performed By: #### L 100.0100 ####[facility] [address] [place], [address] IG% 0.400 Normal 0.0-0.9 [facility] Comment on above: Result Comment: IG% - Immature Granulocytes (promyelocytes, myelocytes andmetamyelocytes) > 1% indicates that a LEFT SHIFT is Present. Performed By: #### L 100.0100 ####[facility] [address] [place], [address] Lymphocytes/100 WBC (Bld) 9.9 % Low 19-41 [facility] Comment on above: Performed By: #### L 100.0100 ####[facility] [address] [place], [address] MCH (RBC) [Entitic mass] 27.3 pg Normal 27.0-32.0 [facility] Comment on above: Performed By: #### L 100.0100 ####[facility] [address] [place], [address] MCHC (RBC) [Mass/Vol] 30.5 g/dL Low 32-36 [facility] Comment on above: Performed By: #### L 100.0100 ####[facility] [address] [place], [address] MCV (RBC) [Entitic vol] 89.5 fL Normal 80-94 [facility] Comment on above: Performed By: #### L 100.0100 ####[facility] [address] [place], [address] Monocytes/100 WBC (Bld) 8.5 % Normal 0-10 [facility] Comment on above: Performed By: #### L 100.0100 ####[facility] [address] [place], [address] Neutrophils/100 WBC (Bld) 79.1 % High 47-70 [facility] Comment on above: Performed By: #### L 100.0100 ####[facility] [address] [place], [address] Nucleated RBC (Bld) [#/Vol] 0 10*3/uL Normal 0-5 [facility] Comment on above: Performed By: #### L 100.0100 ####[facility] [address] [place], [address] Platelet mean volume (Bld) [Entitic vol] 10.0 fL Normal 6.2-12.0 [facility] Comment on above: Performed By: #### L 100.0100 ####[facility] [address] [place], [address] Platelets (Bld) [#/Vol] 355 10*3/uL Normal 150-450 [facility] Comment on above: Performed By: #### L 100.0100 ####[facility] [address] [place], [address] RBC (Bld) [#/Vol] 3.99 10*6/uL Low 4.6-6.2 [facility] Comment on above: Performed By: #### L 100.0100 ####[facility] [address] [place], [address] RDW SD 44.4 fl High 35.1-43.9 [facility] Comment on above: Performed By: #### L 100.0100 ####[facility] [address] [place], [address] WBC (Bld) [#/Vol] 6.9 10*3/uL Normal 4.4-11.0 [facility] Comment on above: Performed By: #### L 100.0100 ####[facility] [address] [place], [address] Carotid Duplex Ultrasoundon 12-20-2024 Carotid Duplex Ultrasound Normal [facility] Vitamin B12on 12-20-2024 Cobalamin (Vitamin B12) [Mass/Vol] 774 pg/mL Normal 180-914 [facility] Comment on above: Performed By: #### L 503.0106 ####[facility] [address] [place], [address] Vitamin B12 ser/plasOrdered By: Lisha Talamantes on 12-20-2024 Cobalamin (Vitamin B12) [Mass/Vol] 774 pg/mL 180-914 [facility] CBC W/Diff, Automatedon 07- Absolute Lymph 0.67 X10 3/uL Low 0.83-4.51 [facility] Comment on above: Performed By: #### L 100.0100, L500.4050 ####[facility] [address] [place], [address] Absolute Neut 6.0 X10 3/uL Normal 2.0-7.7 [facility] Comment on above: Performed By: #### L 100.0100, L500.4050 ####[facility] [address] [place], [address] Basophils/100 WBC (Bld) 0.8 % Normal 0-1 [facility] Comment on above: Performed By: #### L 100.0100, L500.4050 ####[facility] [address] [place], [address] Eosinophils/100 WBC (Bld) 1.9 % Normal 0-5 [facility] Comment on above: Performed By: #### L 100.0100, L500.4050 ####[facility] [address] [place], [address] Erythrocyte distribution width (RBC) [Ratio] 13.6 % Normal 11.6-14.6 [facility] Comment on above: Performed By: #### L 100.0100, L500.4050 ####[facility] [address] [place], [address] Hematocrit (Bld) [Volume fraction] 39.1 % Low 40-54 [facility] Comment on above: Performed By: #### L 100.0100, L500.4050 ####[facility] [address] [place], [address] Hemoglobin (Bld) [Mass/Vol] 11.9 g/dL Low 13.0-16.5 [facility] Comment on above: Performed By: #### L 100.0100, L500.4050 ####[facility] [address] [place], [address] IG% 0.400 Normal 0.0-0.9 [facility] Comment on above: Result Comment: IG% - Immature Granulocytes (promyelocytes, myelocytes andmetamyelocytes) > 1% indicates that a LEFT SHIFT is Present. Performed By: #### L 100.0100, L500.4050 ####[facility] [address] [place], [address] Lymphocytes/100 WBC (Bld) 9.0 % Low 19-41 [facility] Comment on above: Performed By: #### L 100.0100, L500.4050 ####[facility] [address] [place], [address] MCH (RBC) [Entitic mass] 27.5 pg Normal 27.0-32.0 [facility] Comment on above: Performed By: #### L 100.0100, L500.4050 ####[facility] [address] [place], [address] MCHC (RBC) [Mass/Vol] 30.4 g/dL Low 32-36 [facility] Comment on above: Performed By: #### L 100.0100, L500.4050 ####[facility] [address] [place], [address] MCV (RBC) [Entitic vol] 90.5 fL Normal 80-94 [facility] Comment on above: Performed By: #### L 100.0100, L500.4050 ####[facility] [address] [place], [address] Monocytes/100 WBC (Bld) 6.6 % Normal 0-10 [facility] Comment on above: Performed By: #### L 100.0100, L500.4050 ####[facility] [address] [place], [address] Neutrophils/100 WBC (Bld) 81.3 % High 47-70 [facility] Comment on above: Performed By: #### L 100.0100, L500.4050 ####[facility] [address] [place], [address] Nucleated RBC (Bld) [#/Vol] 0 10*3/uL Normal 0-5 [facility] Comment on above: Performed By: #### L 100.0100, L500.4050 ####[facility] [address] [place], [address] Platelet mean volume (Bld) [Entitic vol] 9.6 fL Normal 6.2-12.0 [facility] Comment on above: Performed By: #### L 100.0100, L500.4050 ####[facility] [address] [place], [address] Platelets (Bld) [#/Vol] 375 10*3/uL Normal 150-450 [facility] Comment on above: Performed By: #### L 100.0100, L500.4050 ####[facility] [address] [place], [address] RBC (Bld) [#/Vol] 4.32 10*6/uL Low 4.6-6.2 [facility] Comment on above: Performed By: #### L 100.0100, L500.4050 ####[facility] [address] [place], [address] RDW SD 44.8 fl High 35.1-43.9 [facility] Comment on above: Performed By: #### L 100.0100, L500.4050 ####[facility] [address] [place], [address] WBC (Bld) [#/Vol] 7.4 10*3/uL Normal 4.4-11.0 [facility] Comment on above: Performed By: #### L 100.0100, L500.4050 ####[facility] [address] [place], [address] CDIFF (PCR)on 12-19-2024 CDIFF Normal [facility] Comment on above: Performed By: #### M 100.6796 ####[facility] [address] [place], [address] Comprehensive Metabolic Prof ilon 12-19-2024 Albumin [Mass/Vol] 4.3 g/dL Normal 3.4-4.8 [facility] Comment on above: Performed By: #### L 100.0100, L500.4050 ####[facility] [address] [place], [address] Albumin/Globulin [Mass ratio] 1.5 {ratio} Normal 0.9-2.4 [facility] Comment on above: Performed By: #### L 100.0100, L500.4050 ####[facility] [address] [place], [address] ALK PHOS 69 U/L Normal 40-129 [facility] Comment on above: Performed By: #### L 100.0100, L500.4050 ####[facility] [address] [place], [address] ALT [Catalytic activity/Vol] 25 U/L Normal <=46 [facility] Comment on above: Performed By: #### L 100.0100, L500.4050 ####[facility] [address] [place], [address] AST [Catalytic activity/Vol] 23 U/L Normal <=37 [facility] Comment on above: Performed By: #### L 100.0100, L500.4050 ####[facility] [address] [place], [address] Bilirubin [Mass/Vol] 0.24 mg/dL Normal 0.00-1.30 [facility] Comment on above: Performed By: #### L 100.0100, L500.4050 ####[facility] [address] [place], [address] BUN/CRE 17.6 RATIO Normal 10-20 [facility] Comment on above: Performed By: #### L 100.0100, L500.4050 ####[facility] [address] [place], [address] Calcium [Mass/Vol] 9.5 mg/dL Normal 7.6-11.0 [facility] Comment on above: Performed By: #### L 100.0100, L500.4050 ####[facility] [address] [place], [address] Chloride [Moles/Vol] 101 mmol/L Normal 98-108 [facility] Comment on above: Performed By: #### L 100.0100, L500.4050 ####[facility] [address] [place], [address] CO2 [Moles/Vol] 27.6 mmol/L Normal 21.0-32.0 [facility] Comment on above: Performed By: #### L 100.0100, L500.4050 ####[facility] [address] [place], [address] Creatinine [Mass/Vol] 1.06 mg/dL Normal 0.70-1.20 [facility] Comment on above: Performed By: #### L 100.0100, L500.4050 ####[facility] [address] [place], [address] ECRCL 58.25 ml/min Normal 50-250 [facility] Comment on above: Performed By: #### L 100.0100, L500.4050 ####[facility] [address] [place], [address] GAP 12 Normal 5-15 [facility] Comment on above: Performed By: #### L 100.0100, L500.4050 ####[facility] [address] [place], [address] GFR/1.73 sq M.predicted among non-blacks MDRD (S/P/Bld) [Vol rate/Area] 73 mL/min/{1.73_m2} Normal >60 [facility] Comment on above: Result Comment: mL/m in/1.73m2 CKD-EPI Creatinine Equation (2020) Performed By: #### L 100.0100, L500.4050 ####[facility] [address] [place], [address] Globulin (S) [Mass/Vol] 2.8 g/dL Normal 2.2-4.2 [facility] Comment on above: Performed By: #### L 100.0100, L500.4050 ####[facility] [address] [place], [address] Glucose [Mass/Vol] 109 mg/dL High 70-99 [facility] Comment on above: Performed By: #### L 100.0100, L500.4050 ####[facility] [address] [place], [address] Potassium [Moles/Vol] 3.6 mmol/L Normal 3.3-5.1 [facility] Comment on above: Performed By: #### L 100.0100, L500.4050 ####[facility] [address] [place], [address] Sodium [Moles/Vol] 141 mmol/L Normal 133-145 [facility] Comment on above: Performed By: #### L 100.0100, L500.4050 ####[facility] [address] [place], [address] T PROT 7.1 g/dL Normal 5.9-8.4 [facility] Comment on above: Performed By: #### L 100.0100, L500.4050 ####[facility] [address] [place], [address] Urea nitrogen [Mass/Vol] 19 mg/dL Normal 4-19 [facility] Comment on above: Performed By: #### L 100.0100, L500.4050 ####[facility] [address] [place], [address] ENTERIC PATHOGEN PANEL STOOL on 12-19-2024 EP PANEL Normal [facility] Comment on above: Performed By: #### M 100.637 ####[facility] [address] [place], [address] Magnetic resonance imaging r eportOrdered By: Dorian Parker on 12-19-2024 Study report [facility] Basic Metabolic Profile (BMP )on 12-18-2024 BUN/CRE 20.6 RATIO High 10-20 [facility] Comment on above: Performed By: #### L 500.2500, L100.0500 ####[facility] [address] [place], [address] Calcium [Mass/Vol] 9.7 mg/dL Normal 7.6-11.0 [facility] Comment on above: Performed By: #### L 500.2500, L100.0500 ####[facility] [address] [place], [address] Chloride [Moles/Vol] 103 mmol/L Normal 98-108 [facility] Comment on above: Performed By: #### L 500.2500, L100.0500 ####[facility] [address] [place], [address] CO2 [Moles/Vol] 26.5 mmol/L Normal 21.0-32.0 [facility] Comment on above: Performed By: #### L 500.2500, L100.0500 ####[facility] [address] [place], [address] Creatinine [Mass/Vol] 1.06 mg/dL Normal 0.70-1.20 [facility] Comment on above: Performed By: #### L 500.2500, L100.0500 ####[facility] [address] [place], [address] ECRCL 58.25 ml/min Normal 50-250 [facility] Comment on above: Performed By: #### L 500.2500, L100.0500 ####[facility] [address] [place], [address] GAP 12 Normal 5-15 [facility] Comment on above: Performed By: #### L 500.2500, L100.0500 ####[facility] [address] [place], [address] GFR/1.73 sq M.predicted among non-blacks MDRD (S/P/Bld) [Vol rate/Area] 73 mL/min/{1.73_m2} Normal >60 [facility] Comment on above: Result Comment: mL/m in/1.73m2 CKD-EPI Creatinine Equation (2020) Performed By: #### L 500.2500, L100.0500 ####[facility] [address] [place], [address] Glucose [Mass/Vol] 95 mg/dL Normal 70-99 [facility] Comment on above: Performed By: #### L 500.2500, L100.0500 ####[facility] [address] [place], [address] Potassium [Moles/Vol] 4.2 mmol/L Normal 3.3-5.1 [facility] Comment on above: Result Comment: Hemo lysis present, Results??could be affected.?? Performed By: #### L 500.2500, L100.0500 ####[facility] [address] [place], [address] Sodium [Moles/Vol] 141 mmol/L Normal 133-145 [facility] Comment on above: Performed By: #### L 500.2500, L100.0500 ####[facility] [address] [place], [address] Urea nitrogen [Mass/Vol] 22 mg/dL High 4-19 [facility] Comment on above: Performed By: #### L 500.2500, L100.0500 ####[facility] [address] [place], [address] Brain without Contraston Brain without Contrast Normal [facility] CBC-Complete Blood Cnt No Di ffon 12-18-2024 Erythrocyte distribution width (RBC) [Ratio] 13.7 % Normal 11.6-14.6 [facility] Comment on above: Performed By: #### L 500.2500, L100.0500 ####[facility] [address] [place], [address] Hematocrit (Bld) [Volume fraction] 41.9 % Normal 40-54 [facility] Comment on above: Performed By: #### L 500.2500, L100.0500 ####[facility] [address] [place], [address] Hemoglobin (Bld) [Mass/Vol] 12.8 g/dL Low 13.0-16.5 [facility] Comment on above: Performed By: #### L 500.2500, L100.0500 ####[facility] [address] [place], [address] MCH (RBC) [Entitic mass] 27.7 pg Normal 27.0-32.0 [facility] Comment on above: Performed By: #### L 500.2500, L100.0500 ####[facility] [address] [place], [address] MCHC (RBC) [Mass/Vol] 30.5 g/dL Low 32-36 [facility] Comment on above: Performed By: #### L 500.2500, L100.0500 ####[facility] [address] [place], [address] MCV (RBC) [Entitic vol] 90.7 fL Normal 80-94 [facility] Comment on above: Performed By: #### L 500.2500, L100.0500 ####[facility] [address] [place], [address] Platelet mean volume (Bld) [Entitic vol] 9.9 fL Normal 6.2-12.0 [facility] Comment on above: Performed By: #### L 500.2500, L100.0500 ####[facility] [address] [place], [address] Platelets (Bld) [#/Vol] 386 10*3/uL Normal 150-450 [facility] Comment on above: Performed By: #### L 500.2500, L100.0500 ####[facility] [address] [place], [address] RBC (Bld) [#/Vol] 4.62 10*6/uL Normal 4.6-6.2 [facility] Comment on above: Performed By: #### L 500.2500, L100.0500 ####[facility] [address] [place], [address] RDW SD 45.7 fl High 35.1-43.9 [facility] Comment on above: Performed By: #### L 500.2500, L100.0500 ####[facility] [address] [place], [address] WBC (Bld) [#/Vol] 10.4 10*3/uL Normal 4.4-11.0 [facility] Comment on above: Performed By: #### L 500.2500, L100.0500 ####[facility] [address] [place], [address] Clostridium difficile detect ion by polymerase chain reactionOrdered By: Lisha Talamantes on 12-18-2024 C. difficile DNA ALEENA+probe Ql (Unsp spec) [facility] Echo, Limited Studyon 2024 Echo, Limited Study Normal [facility] Electrocardiogram reportOrde red By: Brendan Vallejo on 12-18-2024 EKG study [facility] Other Phone: [phone] Limited echocardiogram repor tOrdered By: Milton Guajardo on 12-18-2024 Study report [facility] Work Phone: MR/CON.PCM.NEon 12-18-2024 MR/CON.PCM.NE Normal [facility] 12 Lead EKGon 12-17-2024 12 Lead EKG Normal [facility] Absolute lymphocyte countOrd ered By: Seth Pritchard on 12-17-2024 Lymphocytes Auto (Unsp spec) [#/Vol] 1.03 10*3/uL 0.83-4.51 [facility] Activated partial thrombopla stin time (aPTT) in platelet poor plasma by coagulation aOrdered By: Seth Pritchard on 12-17-2024 aPTT Coag (PPP) [Time] 24.2 s 24.1-36.2 [facility] Anion gap in Serum or Plasma Ordered By: Seth Pritchard on 12-17-2024 Anion gap [Moles/Vol] 13 mmol/L 5-15 [facility] Automated blood erythrocyte countOrdered By: Seth Pritchard on 12-17-2024 RBC (Bld) [#/Vol] 4.45 10*6/uL Low 4.6-6.2 [facility] Comment on above: Performed By: #### L 501.4021, L300.4310, L100.0100, L500.2500, L300.3900 ####[facility] [address] [place], [place], [id number] Automated blood hematocrit ( percentage)Ordered By: Seth Pritchard on 12-17-2024 Hematocrit (Bld) [Volume fraction] 39.6 % Low 40-54 [facility] Comment on above: Performed By: #### L 501.4021, L300.4310, L100.0100, L500.2500, L300.3900 ####[facility] [address] [facility] [place], [place], [id number] Automated lymphocyte count a s percentage of total leukocytesOrdered By: Seth Pritchard on 12-17-2024 Lymphocytes/100 WBC Auto (Unsp spec) 12.1 % Low 19-41 [facility] BUN/creatinine ratioOrdered By: Seth Pritchard on 12-17-2024 Urea nitrogen/Creatinine [Mass ratio] 26.4 mg/mg High 10-20 [facility] Basic Metabolic Profile (BMP )on 12-17-2024 BUN/CRE 26.4 RATIO High 10-20 [facility] Comment on above: Performed By: #### L 501.4021, L300.4310, L100.0100, L500.2500, L300.3900 ####[facility] [address] [place], [address] ECRCL 52.33 ml/min Normal 50-250 [facility] Comment on above: Performed By: #### L 501.4021, L300.4310, L100.0100, L500.2500, L300.3900 ####[facility] [address] [place], [address] GAP 13 Normal 5-15 [facility] Comment on above: Performed By: #### L 501.4021, L300.4310, L100.0100, L500.2500, L300.3900 ####[facility] [address] [place], [address] Potassium [Moles/Vol] 3.6 mmol/L Normal 3.3-5.1 [facility] Comment on above: Performed By: #### L 501.4021, L300.4310, L100.0100, L500.2500, L300.3900 ####[facility] [address] [place], [address] Basophil percentageOrdered B y: Seth Pritchard on 12-17-2024 Basophils/100 WBC (Bld) 1.1 % High 0-1 [facility] Comment on above: Performed By: #### L 501.4021, L300.4310, L100.0100, L500.2500, L300.3900 ####[facility] [address] [place], [address] CBC W/Diff, Automatedon 07-0 Absolute Lymph 1.03 X10 3/uL Normal 0.83-4.51 [facility] Comment on above: Performed By: #### L 501.4021, L300.4310, L100.0100, L500.2500, L300.3900 ####[facility] [address] [place], [address] Absolute Neut 6.6 X10 3/uL Normal 2.0-7.7 [facility] Comment on above: Performed By: #### L 501.4021, L300.4310, L100.0100, L500.2500, L300.3900 ####[facility] [address] [place], [address] IG% 0.400 Normal 0.0-0.9 [facility] Comment on above: Result Comment: IG% - Immature Granulocytes (promyelocytes, myelocytes andmetamyelocytes) > 1% indicates that a LEFT SHIFT is Present. Performed By: #### L 501.4021, L300.4310, L100.0100, L500.2500, L300.3900 ####[facility] [address] [place], [address] Lymphocytes/100 WBC (Bld) 12.1 % Low 19-41 [facility] Comment on above: Performed By: #### L 501.4021, L300.4310, L100.0100, L500.2500, L300.3900 ####[facility] [address] [place], [address] MCHC (RBC) [Mass/Vol] 31.3 g/dL Low 32-36 [facility] Comment on above: Performed By: #### L 501.4021, L300.4310, L100.0100, L500.2500, L300.3900 ####[facility] [address] [place], [address] Nucleated RBC (Bld) [#/Vol] 0 10*3/uL Normal 0-5 [facility] Comment on above: Performed By: #### L 501.4021, L300.4310, L100.0100, L500.2500, L300.3900 ####[facility] [address] [place], [address] Platelet mean volume (Bld) [Entitic vol] 10.0 fL Normal 6.2-12.0 [facility] Comment on above: Performed By: #### L 501.4021, L300.4310, L100.0100, L500.2500, L300.3900 ####[facility] [address] [place], [address] RDW SD 45.6 fl High 35.1-43.9 [facility] Comment on above: Performed By: #### L 501.4021, L300.4310, L100.0100, L500.2500, L300.3900 ####[facility] [address] [place], [address] Carbon dioxide, total [Moles /volume] in Central venous bloodOrdered By: Seth Pritchard on 12-17-2024 CO2 [Moles/Vol] 25.5 mmol/L Normal 21.0-32.0 [facility] Comment on above: Performed By: #### L 501.4021, L300.4310, L100.0100, L500.2500, L300.3900 ####[facility] [address] [place], [address] Chest PA and Lateralon 12-17 Chest PA and Lateral Normal [facility] Chloride assayOrdered By: Bill Pritchard on 12-17-2024 Chloride [Moles/Vol] 104 mmol/L Normal 98-108 [facility] Comment on above: Performed By: #### L 501.4021, L300.4310, L100.0100, L500.2500, L300.3900 ####[facility] [address] [place], [address] Emergency Department Summary on 07-01-2025 Emergency Department Summary Normal [facility] Eosinophil percentageOrdered By: Seth Pritchard on 12-17-2024 Eosinophils/100 WBC (Bld) 1.1 % Normal 0-5 [facility] Comment on above: Performed By: #### L 501.4021, L300.4310, L100.0100, L500.2500, L300.3900 ####[facility] [address] [place], [place], [id number] Erythrocyte distribution wid th ratioOrdered By: Seth Pritchard on 12-17-2024 Erythrocyte distribution width (RBC) [Ratio] 14.0 % Normal 11.6-14.6 [facility] Comment on above: Performed By: #### L 501.4021, L300.4310, L100.0100, L500.2500, L300.3900 ####[facility] [address] [place], [place], [id number] Erythrocyte distribution wid th standard deviationOrdered By: Steh Pritchard on 12-17-2024 Erythrocyte distribution width (RBC) [Ratio] 45.6 fl High 35.1-43.9 [facility] Glomerular filtration rate ( GFR) estimation/1.73 sq m using serum, plasma, or whole bOrdered By: Seth Pritchard on 12-17-2024 GFR/1.73 sq M.predicted among non-blacks MDRD (S/P/Bld) [Vol rate/Area] 64 mL/min/{1.73_m2} Normal >60 [facility] Comment on above: Result Comment: mL/m in/1.73m2 CKD-EPI Creatinine Equation (2020) Performed By: #### L 501.4021, L300.4310, L100.0100, L500.2500, L300.3900 ####[facility] [address] [place], [address] H AND P Exam - Hospitaliston 12-17-2024 H&P Exam - Hospitalist Normal [facility] Hemoglobin A1c percentageOrd ered By: Roman Patel on 12-17-2024 HbA1c (Bld) [Mass fraction] 5.9 % High <=5.6 [facility] Comment on above: Result Comment: Norm al < 5.7 % Prediabetic 5.7 - 6.4 % Diabetic >or= 6.5 % Please note range changes. Performed By: #### L 501.9985, L501.9520 ####[facility] [address] [place], [address] Hemoglobin measurementOrdere d By: Seth Pritchard on 12-17-2024 Hemoglobin (Bld) [Mass/Vol] 12.4 g/dL Low 13.0-16.5 [facility] Comment on above: Performed By: #### L 501.4021, L300.4310, L100.0100, L500.2500, L300.3900 ####[facility] [address] [place], [address] Immature granulocytes/100 WB C Auto (Bld)Ordered By: Seth Pritchard on 12-17-2024 Immature granulocytes/100 WBC (Bld) 0.400 % 0.0-0.9 [facility] L499.0042on 12-17-2024 Trop T High Sen 23 ng/L High <=22 [facility] Comment on above: Performed By: #### L 499.0042 ####[facility] [address] [place], [address] L499.0043on 12-17-2024 Trop T High Sen 23 ng/L High <=22 [facility] Comment on above: Performed By: #### L 499.0043 ####[facility] [address] [place], [address] L501.4021on 12-17-2024 Trop T High Sen 27 ng/L High <=22 [facility] Comment on above: Performed By: #### L 501.4021, L300.4310, L100.0100, L500.2500, L300.3900 ####[facility] [address] [place], [place], [id number] MCV (mean corpuscular volume ) determinationOrdered By: Seth Pritchard on 12-17-2024 MCV (RBC) [Entitic vol] 89.0 fL Normal 80-94 [facility] Comment on above: Performed By: #### L 501.4021, L300.4310, L100.0100, L500.2500, L300.3900 ####[facility] [address] [place], [place], [phone] Mean corpuscular hemoglobin (MCH) determinationOrdered By: Seth Pritchard on 12-17-2024 MCH (RBC) [Entitic mass] 27.9 pg Normal 27.0-32.0 [facility] Comment on above: Performed By: #### L 501.4021, L300.4310, L100.0100, L500.2500, L300.3900 ####[facility] [address] [place], [place], [id number] Monocyte percentageOrdered B y: Seth Pritchard on 12-17-2024 Monocytes/100 WBC (Bld) 7.8 % Normal 0-10 [facility] Comment on above: Performed By: #### L 501.4021, L300.4310, L100.0100, L500.2500, L300.3900 ####[facility] [address] [place], [address] Neutrophil percentageOrdered By: Seth Pritchard on 12-17-2024 Neutrophils/100 WBC (Bld) 77.5 % High 47-70 [facility] Comment on above: Performed By: #### L 501.4021, L300.4310, L100.0100, L500.2500, L300.3900 ####[facility] [address] [place], [address] Partial Thromboplast Timeon 12-17-2024 aPTT Coag (Bld) [Time] 24.2 s Normal 24.1-36.2 [facility] Comment on above: Performed By: #### L 501.4021, L300.4310, L100.0100, L500.2500, L300.3900 ####[facility] [address] [place], [address] Platelet countOrdered By: Bill Pritchard on 12-17-2024 Platelets (Bld) [#/Vol] 417 10*3/uL Normal 150-450 [facility] Comment on above: Performed By: #### L 501.4021, L300.4310, L100.0100, L500.2500, L300.3900 ####[facility] [address] [place], [address] Potassium measurement (mass/ volume)Ordered By: Seth Pritchard on 12-17-2024 Potassium (Unsp spec) [Mass/Vol] 3.6 mmol/L 3.3-5.1 [facility] Prothrombin Time w/INRon INR Coag (PPP) [Relative time] 0.9 {INR} Normal [facility] Comment on above: Performed By: #### L 501.4021, L300.4310, L100.0100, L500.2500, L300.3900 ####[facility] [address] [place], [address] Prothrombin timeOrdered By: Seth Pritchard on 12-17-2024 PT Coag (PPP) [Time] 12.8 s Normal 11.7-14.9 [facility] Comment on above: Performed By: #### L 501.4021, L300.4310, L100.0100, L500.2500, L300.3900 ####[facility] [address] [place], [address] STROKE Brain/Head without Co nton 12-17-2024 STROKE Brain/Head without Cont Normal [facility] STROKE CTA Head AND Neck W/C onon 12-17-2024 STROKE CTA Head AND Neck W/Con Normal [facility] Serum creatinine measurement (mass/volume)Ordered By: Seth Pritchard on 12-17-2024 Creatinine [Mass/Vol] 1.18 mg/dL Normal 0.70-1.20 [facility] Comment on above: Performed By: #### L 501.4021, L300.4310, L100.0100, L500.2500, L300.3900 ####[facility] [address] [place], [address] Serum glucose measurement (m ass/volume)Ordered By: Seth Pritchard on 12-17-2024 Glucose [Mass/Vol] 137 mg/dL High 70-99 [facility] Comment on above: Performed By: #### L 501.4021, L300.4310, L100.0100, L500.2500, L300.3900 ####[facility] [address] [place], [address] Serum or plasma calcium luis urement (mass/volume)Ordered By: Seth Pritchard on 12-17-2024 Calcium [Mass/Vol] 9.9 mg/dL Normal 7.6-11.0 [facility] Comment on above: Performed By: #### L 501.4021, L300.4310, L100.0100, L500.2500, L300.3900 ####[facility] [address] [place], [address] Serum or plasma urea nitroge n measurement (mass/volume)Ordered By: Seth Pritchard on 12-17-2024 Urea nitrogen [Mass/Vol] 31 mg/dL High 4-19 [facility] Comment on above: Performed By: #### L 501.4021, L300.4310, L100.0100, L500.2500, L300.3900 ####[facility] [address] [place], [address] Sodium levelOrdered By: Huang Pritchard on 12-17-2024 Sodium [Moles/Vol] 142 mmol/L Normal 133-145 [facility] Comment on above: Performed By: #### L 501.4021, L300.4310, L100.0100, L500.2500, L300.3900 ####[facility] [address] [place], [place], [id number] TSH DL <= 0.005 mIU/L QnOrde red By: Roman Patel on 12-17-2024 TSH Qn 3.380 uIU/mL 0.300-4.200 [facility] Thyroid Stim Hormone (TSH)on 12-17-2024 TSH 3.380 uIU/mL Normal 0.300-4.200 [facility] Comment on above: Performed By: #### L 501.9985, L501.9520 ####[facility] [address] [place], [address] Troponin T.cardiac [Mass/vol ume] in Serum or Plasma by High sensitivity methodOrdered By: Seth Pritchard on 12-17-2024 Troponin T.cardiac High sensitivity method [Mass/Vol] 23 ng/L High <22 [facility] Troponin T.cardiac High sensitivity method [Mass/Vol] 23 ng/L High <22 [facility] Troponin T.cardiac High sensitivity method [Mass/Vol] 27 ng/L High <22 [facility] White blood cell (WBC) count Ordered By: Seth Pritchard on 12-17-2024 WBC (Bld) [#/Vol] 8.5 10*3/uL Normal 4.4-11.0 [facility] Comment on above: Performed By: #### L 501.4021, L300.4310, L100.0100, L500.2500, L300.3900 ####[facility] [address] [place], [place], [id number] Anion gap in Serum or Plasma Ordered By: Lisha Talamantes on 12-16-2024 Anion gap [Moles/Vol] 12 mmol/L 5-15 [facility] BUN/creatinine ratioOrdered By: Lisha Talamantes on 12-16-2024 Urea nitrogen/Creatinine [Mass ratio] 24.5 mg/mg High 10-20 [facility] Basic Metabolic Profile (BMP )on 12-16-2024 BUN/CRE 24.5 RATIO High - [facility] Comment on above: Performed By: #### L 500.2500 ####[facility] [address] [place], [address] Calcium [Mass/Vol] 9.4 mg/dL Normal 7.6-11.0 [facility] Comment on above: Performed By: #### L 500.2500 ####[facility] [address] [place], [address] Chloride [Moles/Vol] 102 mmol/L Normal 98-108 [facility] Comment on above: Performed By: #### L 500.2500 ####[facility] [address] [place], [address] CO2 [Moles/Vol] 25.5 mmol/L Normal 21.0-32.0 [facility] Comment on above: Performed By: #### L 500.2500 ####[facility] [address] [place], [address] Creatinine [Mass/Vol] 1.17 mg/dL Normal 0.70-1.20 [facility] Comment on above: Performed By: #### L 500.2500 ####[facility] [address] [place], [address] ECRCL 52.78 ml/min Normal 50-250 [facility] Comment on above: Performed By: #### L 500.2500 ####[facility] [address] [place], [address] GAP 12 Normal 5-15 [facility] Comment on above: Performed By: #### L 500.2500 ####[facility] [address] [place], [address] GFR/1.73 sq M.predicted among non-blacks MDRD (S/P/Bld) [Vol rate/Area] 65 mL/min/{1.73_m2} Normal >60 [facility] Comment on above: Result Comment: mL/m in/1.73m2 CKD-EPI Creatinine Equation (2020) Performed By: #### L 500.2500 ####[facility] [address] [place], [address] Glucose [Mass/Vol] 108 mg/dL High 70-99 [facility] Comment on above: Performed By: #### L 500.2500 ####[facility] [address] [place], [address] Potassium [Moles/Vol] 3.6 mmol/L Normal 3.3-5.1 [facility] Comment on above: Performed By: #### L 500.2500 ####[facility] [address] [place], [address] Sodium [Moles/Vol] 140 mmol/L Normal 133-145 [facility] Comment on above: Performed By: #### L 500.2500 ####[facility] [address] [place], [address] Urea nitrogen [Mass/Vol] 29 mg/dL High 4-19 [facility] Comment on above: Performed By: #### L 500.2500 ####[facility] [address] [place], [address] Carbon dioxide, total [Moles /volume] in Central venous bloodOrdered By: Lisha Talamantes on 12-16-2024 CO2 [Moles/Vol] 25.5 mmol/L 21.0-32.0 [facility] Chloride assayOrdered By: Sierra Talamantes on 12-16-2024 Chloride [Moles/Vol] 102 mmol/L 98-108 [facility] Culture, Blood (WB)on 2024 CUB Blood cultures x2, from two different sites No growth in 5 days. Normal [facility] Comment on above: Performed By: #### M 200.1000 ####[facility] [address] [place], [place], [id number] Glomerular filtration rate ( GFR) estimation/1.73 sq m using serum, plasma, or whole bOrdered By: Lisha Talamantes on 12-16-2024 GFR/1.73 sq M.predicted among non-blacks MDRD (S/P/Bld) [Vol rate/Area] 65 mL/min/{1.73_m2} >60 [facility] Potassium measurement (mass/ volume)Ordered By: Lisha Talamantes on 12-16-2024 Potassium (Unsp spec) [Mass/Vol] 3.6 mmol/L 3.3-5.1 [facility] Serum creatinine measurement (mass/volume)Ordered By: Lisha Talamantes on 12-16-2024 Creatinine [Mass/Vol] 1.17 mg/dL 0.70-1.20 [facility] Serum glucose measurement (m ass/volume)Ordered By: Lisha Talamantes on 12-16-2024 Glucose [Mass/Vol] 108 mg/dL High 70-99 [facility] Serum or plasma calcium luis urement (mass/volume)Ordered By: Lisha Talamantes on 12-16-2024 Calcium [Mass/Vol] 9.4 mg/dL 7.6-11.0 [facility] Serum or plasma urea nitroge n measurement (mass/volume)Ordered By: Lisha Talamantes on 12-16-2024 Urea nitrogen [Mass/Vol] 29 mg/dL High 4-19 [facility] Sodium levelOrdered By: Cecilia Talamantes on 12-16-2024 Sodium [Moles/Vol] 140 mmol/L 133-145 [facility] Absolute lymphocyte countOrd ered By: Lisha Talamantes on 12-15-2024 Lymphocytes Auto (Unsp spec) [#/Vol] 0.82 10*3/uL Low 0.83-4.51 [facility] Automated lymphocyte count a s percentage of total leukocytesOrdered By: Lisha Talamantes on 12-15-2024 Lymphocytes/100 WBC Auto (Unsp spec) 9.8 % Low 19-41 [facility] Basic Metabolic Profile (BMP )on 12-15-2024 BUN/CRE 20.1 RATIO High 10-20 [facility] Comment on above: Performed By: #### L 501.2300, L500.2500, L100.0100, L501.5200 ####[facility] [address] [place], [address] Calcium [Mass/Vol] 9.3 mg/dL Normal 7.6-11.0 [facility] Comment on above: Performed By: #### L 501.2300, L500.2500, L100.0100, L501.5200 ####[facility] [address] [place], [address] Chloride [Moles/Vol] 106 mmol/L Normal 98-108 [facility] Comment on above: Performed By: #### L 501.2300, L500.2500, L100.0100, L501.5200 ####[facility] [address] [place], [address] CO2 [Moles/Vol] 24.0 mmol/L Normal 21.0-32.0 [facility] Comment on above: Performed By: #### L 501.2300, L500.2500, L100.0100, L501.5200 ####[facility] [address] [place], [address] Creatinine [Mass/Vol] 1.10 mg/dL Normal 0.70-1.20 [facility] Comment on above: Performed By: #### L 501.2300, L500.2500, L100.0100, L501.5200 ####[facility] [address] [place], [address] ECRCL 56.14 ml/min Normal 50-250 [facility] Comment on above: Performed By: #### L 501.2300, L500.2500, L100.0100, L501.5200 ####[facility] [address] [place], [address] GAP 12 Normal 5-15 [facility] Comment on above: Performed By: #### L 501.2300, L500.2500, L100.0100, L501.5200 ####[facility] [address] [place], [address] GFR/1.73 sq M.predicted among non-blacks MDRD (S/P/Bld) [Vol rate/Area] 70 mL/min/{1.73_m2} Normal >60 [facility] Comment on above: Result Comment: mL/m in/1.73m2 CKD-EPI Creatinine Equation (2020) Performed By: #### L 501.2300, L500.2500, L100.0100, L501.5200 ####[facility] [address] [place], [address] Glucose [Mass/Vol] 97 mg/dL Normal 70-99 [facility] Comment on above: Performed By: #### L 501.2300, L500.2500, L100.0100, L501.5200 ####[facility] [address] [place], [address] Potassium [Moles/Vol] 4.1 mmol/L Normal 3.3-5.1 [facility] Comment on above: Performed By: #### L 501.2300, L500.2500, L100.0100, L501.5200 ####[facility] [address] [place], [address] Sodium [Moles/Vol] 142 mmol/L Normal 133-145 [facility] Comment on above: Performed By: #### L 501.2300, L500.2500, L100.0100, L501.5200 ####[facility] [address] [place], [address] Urea nitrogen [Mass/Vol] 22 mg/dL High 4-19 [facility] Comment on above: Performed By: #### L 501.2300, L500.2500, L100.0100, L501.5200 ####[facility] [address] [place], [address] Basophil percentageOrdered B y: Lisha Talamantes on 12-15-2024 Basophils/100 WBC (Bld) 0.2 % 0-1 [facility] CBC W/Diff, Automatedon 11-18 Absolute Lymph 0.82 X10 3/uL Low 0.83-4.51 [facility] Comment on above: Performed By: #### L 501.2300, L500.2500, L100.0100, L501.5200 ####[facility] [address] [place], [address] Absolute Neut 7.0 X10 3/uL Normal 2.0-7.7 [facility] Comment on above: Performed By: #### L 501.2300, L500.2500, L100.0100, L501.5200 ####[facility] [address] [place], [address] Basophils/100 WBC (Bld) 0.2 % Normal 0-1 [facility] Comment on above: Performed By: #### L 501.2300, L500.2500, L100.0100, L501.5200 ####[facility] [address] [place], [address] Eosinophils/100 WBC (Bld) 0.0 % Normal 0-5 [facility] Comment on above: Performed By: #### L 501.2300, L500.2500, L100.0100, L501.5200 ####[facility] [address] [place], [address] Erythrocyte distribution width (RBC) [Ratio] 13.8 % Normal 11.6-14.6 [facility] Comment on above: Performed By: #### L 501.2300, L500.2500, L100.0100, L501.5200 ####[facility] [address] [place], [address] Hematocrit (Bld) [Volume fraction] 35.6 % Low 40-54 [facility] Comment on above: Performed By: #### L 501.2300, L500.2500, L100.0100, L501.5200 ####[facility] [address] [place], [address] Hemoglobin (Bld) [Mass/Vol] 11.3 g/dL Low 13.0-16.5 [facility] Comment on above: Performed By: #### L 501.2300, L500.2500, L100.0100, L501.5200 ####[facility] [address] [place], [address] IG% 0.400 Normal 0.0-0.9 [facility] Comment on above: Result Comment: IG% - Immature Granulocytes (promyelocytes, myelocytes andmetamyelocytes) > 1% indicates that a LEFT SHIFT is Present. Performed By: #### L 501.2300, L500.2500, L100.0100, L501.5200 ####[facility] [address] [place], [address] Lymphocytes/100 WBC (Bld) 9.8 % Low 19-41 [facility] Comment on above: Performed By: #### L 501.2300, L500.2500, L100.0100, L501.5200 ####[facility] [address] [place], [address] MCH (RBC) [Entitic mass] 28.2 pg Normal 27.0-32.0 [facility] Comment on above: Performed By: #### L 501.2300, L500.2500, L100.0100, L501.5200 ####[facility] [address] [place], [address] MCHC (RBC) [Mass/Vol] 31.7 g/dL Low 32-36 [facility] Comment on above: Performed By: #### L 501.2300, L500.2500, L100.0100, L501.5200 ####[facility] [address] [place], [address] MCV (RBC) [Entitic vol] 88.8 fL Normal 80-94 [facility] Comment on above: Performed By: #### L 501.2300, L500.2500, L100.0100, L501.5200 ####[facility] [address] [place], [address] Monocytes/100 WBC (Bld) 6.3 % Normal 0-10 [facility] Comment on above: Performed By: #### L 501.2300, L500.2500, L100.0100, L501.5200 ####[facility] [address] [place], [address] Neutrophils/100 WBC (Bld) 83.3 % High 47-70 [facility] Comment on above: Performed By: #### L 501.2300, L500.2500, L100.0100, L501.5200 ####[facility] [address] [place], [address] Nucleated RBC (Bld) [#/Vol] 0 10*3/uL Normal 0-5 [facility] Comment on above: Performed By: #### L 501.2300, L500.2500, L100.0100, L501.5200 ####[facility] [address] [place], [address] Platelet mean volume (Bld) [Entitic vol] 10.0 fL Normal 6.2-12.0 [facility] Comment on above: Performed By: #### L 501.2300, L500.2500, L100.0100, L501.5200 ####[facility] [address] [place], [address] Platelets (Bld) [#/Vol] 329 10*3/uL Normal 150-450 [facility] Comment on above: Performed By: #### L 501.2300, L500.2500, L100.0100, L501.5200 ####[facility] [address] [place], [address] RBC (Bld) [#/Vol] 4.01 10*6/uL Low 4.6-6.2 [facility] Comment on above: Performed By: #### L 501.2300, L500.2500, L100.0100, L501.5200 ####[facility] [address] [place], [address] RDW SD 44.9 fl High 35.1-43.9 [facility] Comment on above: Performed By: #### L 501.2300, L500.2500, L100.0100, L501.5200 ####[facility] [address] [place], [address] WBC (Bld) [#/Vol] 8.4 10*3/uL Normal 4.4-11.0 [facility] Comment on above: Performed By: #### L 501.2300, L500.2500, L100.0100, L501.5200 ####[facility] [address] [place], [address] Eosinophil percentageOrdered By: Lisha Talamantes on 12-15-2024 Eosinophils/100 WBC (Bld) 0.0 % 0-5 [facility] Erythrocyte distribution wid th ratioOrdered By: Lisha Talamantes on 12-15-2024 Erythrocyte distribution width (RBC) [Ratio] 13.8 % 11.6-14.6 [facility] Erythrocyte distribution wid th standard deviationOrdered By: Lisha Talamantes on 12-15-2024 Erythrocyte distribution width (RBC) [Ratio] 44.9 fl High 35.1-43.9 [facility] Hematocrit Auto (Bld) [Volum e fraction]Ordered By: Lisha Talamantes on 12-15-2024 Hematocrit (Bld) [Volume fraction] 35.6 % Low 40-54 [facility] Hemoglobin measurementOrdere d By: Lisha Talamantes on 12-15-2024 Hemoglobin (Bld) [Mass/Vol] 11.3 g/dL Low 13.0-16.5 [facility] Immature granulocytes/100 WB C Auto (Bld)Ordered By: Lisha Talamantes on 12-15-2024 Immature granulocytes/100 WBC (Bld) 0.400 % 0.0-0.9 [facility] MCV (mean corpuscular volume ) determinationOrdered By: Lisha Talamantes on 12-15-2024 MCV (RBC) [Entitic vol] 88.8 fL 80-94 [facility] Magnesiumon 12-15-2024 Magnesium [Mass/Vol] 2.0 mg/dL Normal 1.5-2.2 [facility] Comment on above: Performed By: #### L 501.2300, L500.2500, L100.0100, L501.5200 ####[facility] [address] [place], [place], [id number] Magnesium measurement (mass/ volume)Ordered By: Lisha Talamantes on 12-15-2024 Magnesium (Unsp spec) [Mass/Vol] 2.0 mg/dL 1.5-2.2 [facility] Mean corpuscular hemoglobin (MCH) determinationOrdered By: Lisha Talamantes on 12-15-2024 MCH (RBC) [Entitic mass] 28.2 pg 27.0-32.0 [facility] Monocyte percentageOrdered B y: Lisha Talamantes on 12-15-2024 Monocytes/100 WBC (Bld) 6.3 % 0-10 [facility] Neutrophil percentageOrdered By: Lisha Talamantes on 12-15-2024 Neutrophils/100 WBC (Bld) 83.3 % High 47-70 [facility] Phosphoruson 12-15-2024 Phosphate [Mass/Vol] 3.3 mg/dL Normal 2.7-4.5 [facility] Comment on above: Performed By: #### L 501.2300, L500.2500, L100.0100, L501.5200 ####[facility] [address] [place], [address] Platelet countOrdered By: Sierra Talamantes on 12-15-2024 Platelets (Bld) [#/Vol] 329 10*3/uL 150-450 [facility] RBC Auto (Bld) [#/Vol]Ordere d By: Lisha Talamantes on 12-15-2024 RBC (Bld) [#/Vol] 4.01 10*6/uL Low 4.6-6.2 [facility] White blood cell (WBC) count Ordered By: Lisha Talamantes on 12-15-2024 WBC (Bld) [#/Vol] 8.4 10*3/uL 4.4-11.0 [facility] Bilirubin, totalOrdered By: Shilpa Contreras on 12-14-2024 Bilirubin [Mass/Vol] mg/dL 0.00-1.30 [facility] CBC W/Diff, Automatedon 11-18 Absolute Lymph 0.65 X10 3/uL Low 0.83-4.51 [facility] Comment on above: Performed By: #### L 100.0100, L500.4050, L300.3900 ####[facility] [address] [place], [address] Absolute Neut 3.4 X10 3/uL Normal 2.0-7.7 [facility] Comment on above: Performed By: #### L 100.0100, L500.4050, L300.3900 ####[facility] [address] [place], [address] Basophils/100 WBC (Bld) 0.2 % Normal 0-1 [facility] Comment on above: Performed By: #### L 100.0100, L500.4050, L300.3900 ####[facility] [address] [place], [address] Eosinophils/100 WBC (Bld) 0.0 % Normal 0-5 [facility] Comment on above: Performed By: #### L 100.0100, L500.4050, L300.3900 ####[facility] [address] [place], [address] Erythrocyte distribution width (RBC) [Ratio] 13.7 % Normal 11.6-14.6 [facility] Comment on above: Performed By: #### L 100.0100, L500.4050, L300.3900 ####[facility] [address] [place], [address] Hematocrit (Bld) [Volume fraction] 33.7 % Low 40-54 [facility] Comment on above: Performed By: #### L 100.0100, L500.4050, L300.3900 ####[facility] [address] [place], [address] Hemoglobin (Bld) [Mass/Vol] 10.6 g/dL Low 13.0-16.5 [facility] Comment on above: Performed By: #### L 100.0100, L500.4050, L300.3900 ####[facility] [address] [place], [address] IG% 0.200 Normal 0.0-0.9 [facility] Comment on above: Result Comment: IG% - Immature Granulocytes (promyelocytes, myelocytes andmetamyelocytes) > 1% indicates that a LEFT SHIFT is Present. Performed By: #### L 100.0100, L500.4050, L300.3900 ####[facility] [address] [place], [address] Lymphocytes/100 WBC (Bld) 15.0 % Low 19-41 [facility] Comment on above: Performed By: #### L 100.0100, L500.4050, L300.3900 ####[facility] [address] [place], [address] MCH (RBC) [Entitic mass] 27.8 pg Normal 27.0-32.0 [facility] Comment on above: Performed By: #### L 100.0100, L500.4050, L300.3900 ####[facility] [address] [place], [address] MCHC (RBC) [Mass/Vol] 31.5 g/dL Low 32-36 [facility] Comment on above: Performed By: #### L 100.0100, L500.4050, L300.3900 ####[facility] [address] [place], [address] MCV (RBC) [Entitic vol] 88.5 fL Normal 80-94 [facility] Comment on above: Performed By: #### L 100.0100, L500.4050, L300.3900 ####[facility] [address] [place], [address] Monocytes/100 WBC (Bld) 5.3 % Normal 0-10 [facility] Comment on above: Performed By: #### L 100.0100, L500.4050, L300.3900 ####[facility] [address] [place], [address] Neutrophils/100 WBC (Bld) 79.3 % High 47-70 [facility] Comment on above: Performed By: #### L 100.0100, L500.4050, L300.3900 ####[facility] [address] [place], [address] Nucleated RBC (Bld) [#/Vol] 0 10*3/uL Normal 0-5 [facility] Comment on above: Performed By: #### L 100.0100, L500.4050, L300.3900 ####[facility] [address] [place], [address] Platelet mean volume (Bld) [Entitic vol] 10.1 fL Normal 6.2-12.0 [facility] Comment on above: Performed By: #### L 100.0100, L500.4050, L300.3900 ####[facility] [address] [place], [address] Platelets (Bld) [#/Vol] 306 10*3/uL Normal 150-450 [facility] Comment on above: Performed By: #### L 100.0100, L500.4050, L300.3900 ####[facility] [address] [place], [address] RBC (Bld) [#/Vol] 3.81 10*6/uL Low 4.6-6.2 [facility] Comment on above: Performed By: #### L 100.0100, L500.4050, L300.3900 ####[facility] [address] [place], [address] RDW SD 44.5 fl High 35.1-43.9 [facility] Comment on above: Performed By: #### L 100.0100, L500.4050, L300.3900 ####[facility] [address] [place], [address] WBC (Bld) [#/Vol] 4.3 10*3/uL Low 4.4-11.0 [facility] Comment on above: Performed By: #### L 100.0100, L500.4050, L300.3900 ####[facility] [address] [place], [address] Comprehensive Metabolic Prof ilon 12-14-2024 ALK PHOS 70 U/L Normal 40-129 [facility] Comment on above: Performed By: #### L 100.0100, L500.4050, L300.3900 ####[facility] [address] [place], [address] AST [Catalytic activity/Vol] 18 U/L Normal <=37 [facility] Comment on above: Performed By: #### L 100.0100, L500.4050, L300.3900 ####[facility] [address] [place], [address] BUN/CRE 12.3 RATIO Normal 10-20 [facility] Comment on above: Performed By: #### L 100.0100, L500.4050, L300.3900 ####[facility] [address] [place], [address] Calcium [Mass/Vol] 9.5 mg/dL Normal 7.6-11.0 [facility] Comment on above: Performed By: #### L 100.0100, L500.4050, L300.3900 ####[facility] [address] [place], [address] Chloride [Moles/Vol] 105 mmol/L Normal 98-108 [facility] Comment on above: Performed By: #### L 100.0100, L500.4050, L300.3900 ####[facility] [address] [place], [address] CO2 [Moles/Vol] 24.4 mmol/L Normal 21.0-32.0 [facility] Comment on above: Performed By: #### L 100.0100, L500.4050, L300.3900 ####[facility] [address] [place], [address] Creatinine [Mass/Vol] 1.04 mg/dL Normal 0.70-1.20 [facility] Comment on above: Performed By: #### L 100.0100, L500.4050, L300.3900 ####[facility] [address] [place], [address] ECRCL 59.38 ml/min Normal 50-250 [facility] Comment on above: Performed By: #### L 100.0100, L500.4050, L300.3900 ####[facility] [address] [place], [address] GAP 13 Normal 5-15 [facility] Comment on above: Performed By: #### L 100.0100, L500.4050, L300.3900 ####[facility] [address] [place], [address] GFR/1.73 sq M.predicted among non-blacks MDRD (S/P/Bld) [Vol rate/Area] 75 mL/min/{1.73_m2} Normal >60 [facility] Comment on above: Result Comment: mL/m in/1.73m2 CKD-EPI Creatinine Equation (2020) Performed By: #### L 100.0100, L500.4050, L300.3900 ####[facility] [address] [place], [address] Glucose [Mass/Vol] 129 mg/dL High 70-99 [facility] Comment on above: Performed By: #### L 100.0100, L500.4050, L300.3900 ####[facility] [address] [place], [address] Potassium [Moles/Vol] 3.8 mmol/L Normal 3.3-5.1 [facility] Comment on above: Performed By: #### L 100.0100, L500.4050, L300.3900 ####[facility] [address] [place], [address] Sodium [Moles/Vol] 143 mmol/L Normal 133-145 [facility] Comment on above: Performed By: #### L 100.0100, L500.4050, L300.3900 ####[facility] [address] [place], [address] T BILI < 0.15 Normal 0.00-1.30 [facility] Comment on above: Performed By: #### L 100.0100, L500.4050, L300.3900 ####[facility] [address] [place], [address] T PROT 6.6 g/dL Normal 5.9-8.4 [facility] Comment on above: Performed By: #### L 100.0100, L500.4050, L300.3900 ####[facility] [address] [place], [address] Urea nitrogen [Mass/Vol] 13 mg/dL Normal 4-19 [facility] Comment on above: Performed By: #### L 100.0100, L500.4050, L300.3900 ####[facility] [address] [place], [address] No Panel InformationOrdered By: Shilpa Contreras on 12-14-2024 18 U/L <38 [facility] Prothrombin Time w/INRon INR Coag (PPP) [Relative time] 1.0 {INR} Normal [facility] Comment on above: Performed By: #### L 100.0100, L500.4050, L300.3900 ####[facility] [address] [place], [address] PT Coag (PPP) [Time] 13.5 s Normal 11.7-14.9 [facility] Comment on above: Performed By: #### L 100.0100, L500.4050, L300.3900 ####[facility] [address] [place], [address] Prothrombin timeOrdered By: Shilpa Contreras on 12-14-2024 PT Coag (PPP) [Time] 13.5 s 11.7-14.9 [facility] RESPIRATORY PANEL MOLECULARo n 12-14-2024 RP PANEL Normal [facility] Comment on above: Performed By: #### M 100.638 ####[facility] [address] [place], [address] Serum globulin measurementOr dered By: Shilpa Contreras on 12-14-2024 Globulin (S) [Mass/Vol] 2.5 g/dL Normal 2.2-4.2 [facility] Comment on above: Performed By: #### L 100.0100, L500.4050, L300.3900 ####[facility] [address] [place], [address] Serum or plasma alanine saul otransferase (ALT) measurementOrdered By: Shilpa Contreras on 12-14-2024 ALT [Catalytic activity/Vol] 16 U/L Normal <=46 [facility] Comment on above: Performed By: #### L 100.0100, L500.4050, L300.3900 ####[facility] [address] [place], [address] Serum or plasma albumin luis urement (mass/volume)Ordered By: Shilpa Contreras on 12-14-2024 Albumin [Mass/Vol] 4.0 g/dL Normal 3.4-4.8 [facility] Comment on above: Performed By: #### L 100.0100, L500.4050, L300.3900 ####[facility] [address] [place], [address] Serum or plasma albumin/glob ulin mass ratioOrdered By: Shilpa Ben on 12-14-2024 Albumin/Globulin [Mass ratio] 1.6 {ratio} Normal 0.9-2.4 [facility] Comment on above: Performed By: #### L 100.0100, L500.4050, L300.3900 ####[facility] [address] [place], [address] Serum or plasma alkaline kathleen sphatase measurementOrdered By: Shilpa Ben on 12-14-2024 ALP [Catalytic activity/Vol] 70 U/L 40-129 [facility] Total proteinOrdered By: Roverto donovan Contreras on 12-14-2024 Protein [Mass/Vol] 6.6 g/dL 5.9-8.4 [facility] Absolute lymphocyte countOrd ered By: Remus Ungkevin on 12-13-2024 Lymphocytes Auto (Unsp spec) [#/Vol] 1.16 10*3/uL 0.83-4.51 [facility] Absolute neutrophil countOrd ered By: Remus Ungur on 12-13-2024 Neutrophils (Bld) [#/Vol] 4.0 10*3/uL 2.0-7.7 [facility] Anion gap in Serum or Plasma Ordered By: Remus Aaron on 12-13-2024 Anion gap [Moles/Vol] 13 mmol/L 5-15 [facility] Automated lymphocyte count a s percentage of total leukocytesOrdered By: Remus Walker on 12-13-2024 Lymphocytes/100 WBC Auto (Unsp spec) 19.5 % 19-41 [facility] BUN/creatinine ratioOrdered By: Charis Walker on 12-13-2024 Urea nitrogen/Creatinine [Mass ratio] 11.0 mg/mg 10-20 [facility] Basic Metabolic Profile (BMP )on 12-13-2024 BUN/CRE 11.0 RATIO Normal -20 [facility] Comment on above: Performed By: #### L 500.2500, L100.0100 ####[facility] [address] [place], [address] Calcium [Mass/Vol] 9.7 mg/dL Normal 7.6-11.0 [facility] Comment on above: Performed By: #### L 500.2500, L100.0100 ####[facility] [address] [place], [address] Chloride [Moles/Vol] 104 mmol/L Normal 98-108 [facility] Comment on above: Performed By: #### L 500.2500, L100.0100 ####[facility] [facility] [address] [place], [address] CO2 [Moles/Vol] 24.4 mmol/L Normal 21.0-32.0 [facility] Comment on above: Performed By: #### L 500.2500, L100.0100 ####[facility] [address] [place], [address] Creatinine [Mass/Vol] 1.11 mg/dL Normal 0.70-1.20 [facility] Comment on above: Performed By: #### L 500.2500, L100.0100 ####[facility] [address] [place], [address] ECRCL 55.63 ml/min Normal 50-250 [facility] Comment on above: Performed By: #### L 500.2500, L100.0100 ####[facility] [address] [place], [address] GAP 13 Normal 5-15 [facility] Comment on above: Performed By: #### L 500.2500, L100.0100 ####[facility] [address] [place], [address] GFR/1.73 sq M.predicted among non-blacks MDRD (S/P/Bld) [Vol rate/Area] 69 mL/min/{1.73_m2} Normal >60 [facility] Comment on above: Result Comment: mL/m in/1.73m2 CKD-EPI Creatinine Equation (2020) Performed By: #### L 500.2500, L100.0100 ####[facility] [address] [place], [address] Glucose [Mass/Vol] 102 mg/dL High 70-99 [facility] Comment on above: Performed By: #### L 500.2500, L100.0100 ####[facility] [address] [place], [address] Potassium [Moles/Vol] 3.7 mmol/L Normal 3.3-5.1 [facility] Comment on above: Performed By: #### L 500.2500, L100.0100 ####[facility] [address] [place], [address] Sodium [Moles/Vol] 141 mmol/L Normal 133-145 [facility] Comment on above: Performed By: #### L 500.2500, L100.0100 ####[facility] [address] [place], [address] Urea nitrogen [Mass/Vol] 12 mg/dL Normal 4-19 [facility] Comment on above: Performed By: #### L 500.2500, L100.0100 ####[facility] [address] [place], [address] Basophil percentageOrdered B y: Remus Ungur on 12-13-2024 Basophils/100 WBC (Bld) 1.0 % 0-1 [facility] Blood cultureOrdered By: Rem us Ungur on 12-13-2024 Bacteria identified Cx Nom (Bld) No growth in 5 days. [facility] Bacteria identified Cx Nom (Bld) No growth in 5 days. [facility] CBC W/Diff, Automatedon - Absolute Lymph 1.16 X10 3/uL Normal 0.83-4.51 [facility] Comment on above: Performed By: #### L 500.2500, L100.0100 ####[facility] [address] [place], [address] Absolute Neut 4.0 X10 3/uL Normal 2.0-7.7 [facility] Comment on above: Performed By: #### L 500.2500, L100.0100 ####[facility] [address] [place], [address] Basophils/100 WBC (Bld) 1.0 % Normal 0-1 [facility] Comment on above: Performed By: #### L 500.2500, L100.0100 ####[facility] [id number] [place], [address] Eosinophils/100 WBC (Bld) 3.0 % Normal 0-5 [facility] Comment on above: Performed By: #### L 500.2500, L100.0100 ####[facility] [id number] [place], [address] Erythrocyte distribution width (RBC) [Ratio] 13.7 % Normal 11.6-14.6 [facility] Comment on above: Performed By: #### L 500.2500, L100.0100 ####[facility] [id number] [place], [address] Hematocrit (Bld) [Volume fraction] 37.5 % Low 40-54 [facility] Comment on above: Performed By: #### L 500.2500, L100.0100 ####[facility] [address] [place], [address] Hemoglobin (Bld) [Mass/Vol] 11.5 g/dL Low 13.0-16.5 [facility] Comment on above: Performed By: #### L 500.2500, L100.0100 ####[facility] [address] [place], [address] IG% 0.300 Normal 0.0-0.9 [facility] Comment on above: Result Comment: IG% - Immature Granulocytes (promyelocytes, myelocytes andmetamyelocytes) > 1% indicates that a LEFT SHIFT is Present. Performed By: #### L 500.2500, L100.0100 ####[facility] [address] [place], [address] Lymphocytes/100 WBC (Bld) 19.5 % Normal 19-41 [facility] Comment on above: Performed By: #### L 500.2500, L100.0100 ####[facility] [address] [place], [address] MCH (RBC) [Entitic mass] 27.7 pg Normal 27.0-32.0 [facility] Comment on above: Performed By: #### L 500.2500, L100.0100 ####[facility] [address] [place], [address] MCHC (RBC) [Mass/Vol] 30.7 g/dL Low 32-36 [facility] Comment on above: Performed By: #### L 500.2500, L100.0100 ####[facility] [address] [place], [address] MCV (RBC) [Entitic vol] 90.4 fL Normal 80-94 [facility] Comment on above: Performed By: #### L 500.2500, L100.0100 ####[facility] [address] [place], [address] Monocytes/100 WBC (Bld) 8.9 % Normal 0-10 [facility] Comment on above: Performed By: #### L 500.2500, L100.0100 ####[facility] [address] [place], [address] Neutrophils/100 WBC (Bld) 67.3 % Normal 47-70 [facility] Comment on above: Performed By: #### L 500.2500, L100.0100 ####[facility] [address] [place], [address] Nucleated RBC (Bld) [#/Vol] 0 10*3/uL Normal 0-5 [facility] Comment on above: Performed By: #### L 500.2500, L100.0100 ####[facility] [address] [place], [address] Platelet mean volume (Bld) [Entitic vol] 9.7 fL Normal 6.2-12.0 [facility] Comment on above: Performed By: #### L 500.2500, L100.0100 ####[facility] [address] [place], [address] Platelets (Bld) [#/Vol] 299 10*3/uL Normal 150-450 [facility] Comment on above: Performed By: #### L 500.2500, L100.0100 ####[facility] [address] [place], [address] RBC (Bld) [#/Vol] 4.15 10*6/uL Low 4.6-6.2 [facility] Comment on above: Performed By: #### L 500.2500, L100.0100 ####[facility] [address] [place], [address] RDW SD 44.8 fl High 35.1-43.9 [facility] Comment on above: Performed By: #### L 500.2500, L100.0100 ####[facility] [address] [place], [address] WBC (Bld) [#/Vol] 5.9 10*3/uL Normal 4.4-11.0 [facility] Comment on above: Performed By: #### L 500.2500, L100.0100 ####[facility] [address] [place], [address] CO2 (BldV) [Moles/Vol]Ordere d By: Shilpa Contreras on 12-13-2024 CO2 [Moles/Vol] 28 mmol/L 23-33 [facility] Carbon dioxide, total [Moles /volume] in Central venous bloodOrdered By: Charis Walker on 12-13-2024 CO2 [Moles/Vol] 24.4 mmol/L 21.0-32.0 [facility] Chest 1 View (Portable)on Chest 1 View (Portable) Normal [facility] Chloride assayOrdered By: Ame Walker on 12-13-2024 Chloride [Moles/Vol] 104 mmol/L 98-108 [facility] Emergency Department Summary on 12-13-2024 Emergency Department Summary Normal [facility] Eosinophil percentageOrdered By: Charis Walker on 12-13-2024 Eosinophils/100 WBC (Bld) 3.0 % 0-5 [facility] Erythrocyte distribution wid th ratioOrdered By: Charis Walker on 12-13-2024 Erythrocyte distribution width (RBC) [Ratio] 13.7 % 11.6-14.6 [facility] Erythrocyte distribution wid th standard deviationOrdered By: Charis Walker on 12-13-2024 Erythrocyte distribution width (RBC) [Ratio] 44.8 fl High 35.1-43.9 [facility] Glomerular filtration rate ( GFR) estimation/1.73 sq m using serum, plasma, or whole bOrdered By: Charis Walker on 12-13-2024 GFR/1.73 sq M.predicted among non-blacks MDRD (S/P/Bld) [Vol rate/Area] 69 mL/min/{1.73_m2} >60 [facility] Comment on above: mL/min/1.73m2 CKD-EP I Creatinine Equation (2020) H AND P Exam - [facility] 12-13-2024 H&P Exam - Hospitalist Normal [facility] Hematocrit Auto (Bld) [Volum e fraction]Ordered By: Charis Walker on 12-13-2024 Hematocrit (Bld) [Volume fraction] 37.5 % Low 40-54 [facility] Hemoglobin measurementOrdere d By: Charis Walker on 12-13-2024 Hemoglobin (Bld) [Mass/Vol] 11.5 g/dL Low 13.0-16.5 [facility] Immature granulocytes/100 WB C Auto (Bld)Ordered By: Charis Walker on 12-13-2024 Immature granulocytes/100 WBC (Bld) 0.300 % 0.0-0.9 [facility] Comment on above: IG% - Immature Granu locytes (promyelocytes, myelocytes and metamyelocytes) > 1% indicates that a LEFT SHIFT is Present. Influenza virus A and B and SARS-CoV-2 (COVID-19) and Respiratory syncytial virus RNAOrdered By: Charis Walker on 12-13-2024 SARS-CoV-2 (COVID-19) RNA ALEENA+probe Ql (Unsp spec) [facility] International normalized rat io (INR) calculationOrdered By: Charis Walker on 12-13-2024 INR Coag (Bld) [Relative time] 0.9 {INR} [facility] L509.7001on 12-13-2024 Procalcitonin 0.05 ng/mL Normal <=0.10 [facility] Comment on above: Result Comment: Inte rpretation:<0.10-0.25 ng/mL: Antibiotic therapy discouraged. Bacterialinfection unlikely.0.25-0.50 ng/mL: Antibiotic therapy encouraged. Bacterialinfection possible.>0.50 ng/mL: Antibiotic therapy strongly encouraged.Suggestive of presence of bacterial infection.PCT should always be interpreted in the clinical context ofthe patient. Therefore, clinicians should use the PCTresults in conjunction with other laboratory findings andclinical signs of the patient. Performed By: #### L 509.7001 ####[facility] [address] [place], [address] M100.678on 12-13-2024 M100.678 Pending SARS-CoV-2 (COVID 19) Negative INFLUENZA A Negative INFLUENZA B Negative RSV PCR Negative Normal [facility] Comment on above: Performed By: #### M 100.678 ####[facility] [address] [place], [address] MCV (mean corpuscular volume ) determinationOrdered By: Charis Walker on 12-13-2024 MCV (RBC) [Entitic vol] 90.4 fL 80-94 [facility] Mean corpuscular hemoglobin (MCH) determinationOrdered By: Charis Walker on 12-13-2024 MCH (RBC) [Entitic mass] 27.7 pg 27.0-32.0 [facility] Mean corpuscular hemoglobin concentration (MCHC) determinationOrdered By: Charis Walker on 12-13-2024 MCHC (RBC) [Mass/Vol] 30.7 g/dL Low 32-36 [facility] Mean platelet volume determi nationOrdered By: Charis Walker on 12-13-2024 Platelet mean volume (Bld) [Entitic vol] 9.7 fL 6.2-12.0 [facility] Monocyte percentageOrdered B y: Charis Walker on 12-13-2024 Monocytes/100 WBC (Bld) 8.9 % 0-10 [facility] Neutrophil percentageOrdered By: Charis Walker on 12-13-2024 Neutrophils/100 WBC (Bld) 67.3 % 47-70 [facility] No Panel InformationOrdered By: Shilpa Contreras on 12-13-2024 Blood Gas Sample Site Not entered [facility] Blood Gas Specimen Type LASHAE [facility] Oxygen Delivery Device Cannula [facility] LASHAE [facility] Not entered [facility] Cannula [facility] Nucleated red blood cell per centageOrdered By: Charis Walker on 12-13-2024 Nucleated RBC/100 WBC (Bld) [Ratio] 0 % 0-5 [facility] Platelet countOrdered By: Ame Walker on 12-13-2024 Platelets (Bld) [#/Vol] 299 10*3/uL 150-450 [facility] Potassium measurement (mass/ volume)Ordered By: Charis Walker on 12-13-2024 Potassium (Unsp spec) [Mass/Vol] 3.7 mmol/L 3.3-5.1 [facility] Procalcitonin [Mass/volume] in Serum or Plasma by ImmunoassayOrdered By: Shilpa Contreras on 12-13-2024 Procalcitonin IA [Mass/Vol] 0.05 ng/mL <0.11 [facility] Prothrombin Time w/INRon INR Coag (PPP) [Relative time] 0.9 {INR} Normal [facility] Comment on above: Performed By: #### L 257.0110 ####[facility] [address] [place], [place], [address] PT Coag (PPP) [Time] 12.5 s Normal 11.7-14.9 [facility] Comment on above: Performed By: #### L 300.3900 ####[facility] [address] [place], [place], [id number] Prothrombin timeOrdered By: Charis Walker on 12-13-2024 PT Coag (PPP) [Time] 12.5 s 11.7-14.9 [facility] RBC Auto (Bld) [#/Vol]Ordere d By: Charis Walker on 12-13-2024 RBC (Bld) [#/Vol] 4.15 10*6/uL Low 4.6-6.2 [facility] Respiratory pathogens detect ion panel by molecular detection methodOrdered By: Shilpa Contreras on 12-13-2024 Respiratory pathogens DNA and RNA panel ALEENA+probe (Resp) [facility] Serum creatinine measurement (mass/volume)Ordered By: Charis Walker on 12-13-2024 Creatinine [Mass/Vol] 1.11 mg/dL 0.70-1.20 [facility] Serum glucose measurement (m ass/volume)Ordered By: Charis Walker on 12-13-2024 Glucose [Mass/Vol] 102 mg/dL High 70-99 [facility] Serum or plasma calcium luis urement (mass/volume)Ordered By: [facility] on 12-13-2024 Calcium [Mass/Vol] 9.7 mg/dL 7.6-11.0 [facility] Serum or plasma urea nitroge n measurement (mass/volume)Ordered By: Charis Walker on 12-13-2024 Urea nitrogen [Mass/Vol] 12 mg/dL 4-19 [facility] Sodium levelOrdered By: Nelson Walker on 12-13-2024 Sodium [Moles/Vol] 141 mmol/L 133-145 [facility] Venous Blood Gason 5 Blood Gas Type LASHAE Normal [facility] Comment on above: Performed By: #### L 9000.0810 ####[facility] [address] [place], [place], [address] CO2 [Moles/Vol] 28 mmol/L Normal 23-33 [facility] Comment on above: Performed By: #### L 9000.0810 ####[facility] [address] [place], [address] FI02 4.0 Normal [facility] Comment on above: Performed By: #### L 9000.0810 ####[facility] [address] [place], [address] HCO3 (Bld) [Moles/Vol] 26 mmol/L Normal 22-26 [facility] Comment on above: Performed By: #### L 9000.0810 ####[facility] [address] [place], [address] O2 Delivery Dev Cannula Normal [facility] Comment on above: Performed By: #### L 9000.0810 ####[facility] [address] [place], [address] SITE Not entered Normal [facility] Comment on above: Performed By: #### L 9000.0810 ####[facility] [address] [place], [address] VBG BE 2 mmol/L Normal -1.0-3.5 [facility] Comment on above: Performed By: #### L 9000.0810 ####[facility] [address] [place], [address] VBG pCO2 42.7 mmHg Normal 41-51 [facility] Comment on above: Performed By: #### L 9000.0810 ####[facility] [address] [place], [address] VBG pH 7.40 Normal 7.32-7.42 [facility] Comment on above: Performed By: #### L 9000.0810 ####[facility] [address] [place], [address] VBG PO2 56 mmHg High 25-40 [facility] Comment on above: Performed By: #### L 9000.0810 ####[facility] [address] [place], [place], [address] VBG SO2 89 High 50-70 [facility] Comment on above: Performed By: #### L 9000.0810 ####[facility] [address] [place], [place], [address] Venous blood base excess arlyn surementOrdered By: Shilpa Contreras on 12-13-2024 Base excess Calc (BldV) [Moles/Vol] 2 mmol/L -1.0-3.5 [facility] Venous blood bicarbonate arlyn surementOrdered By: Shilpa Contreras on 12-13-2024 HCO3 (Bld) [Moles/Vol] 26 mmol/L 22-26 [facility] Venous blood oxygen saturati on measurementOrdered By: Shilpa Contreras on 12-13-2024 Oxygen saturation in Blood 89 % High 50-70 [facility] Venous blood pH measurementO rdered By: Shilpa Contreras on 12-13-2024 pH (BldV) 7.40 [pH] 7.32-7.42 [facility] Venous blood partial pressur e of carbon dioxide measurementOrdered By: Shilpa Contreras on 12-13-2024 CO2 (BldV) [Partial pressure] 42.7 mm[Hg] 41-51 [facility] Venous blood partial pressur e of oxygen measurementOrdered By: Shilpa Contreras on 12-13-2024 Oxygen (BldV) [Partial pressure] 56 mm[Hg] High 25-40 [facility] White blood cell (WBC) count Ordered By: Charis Walker on 12-13-2024 WBC (Bld) [#/Vol] 5.9 10*3/uL 4.4-11.0 [facility] CBC W Auto Differential pane l (Bld)on 12-12-2024 Basophils (Bld) [#/Vol] 0.09 10*3/uL [facility] Basophils/100 WBC (Bld) 1.5 % [facility] Differential cell count method Nom (Bld) Auto [facility] Eosinophils (Bld) [#/Vol] 0.22 10*3/uL [facility] Eosinophils/100 WBC (Bld) 3.7 % [facility] Erythrocyte distribution width (RBC) [Ratio] 13.8 % 11.5 - 15.0 % [facility] Hematocrit (Bld) [Volume fraction] 38.3 % Low 39.0 - 51.0 % [facility] Hemoglobin (Bld) [Mass/Vol] 11.7 g/dL Low 13.0 - 17.0 g/dL [facility] Immature granulocytes (Bld) [#/Vol] [facility] Immature granulocytes/100 WBC (Bld) 0.3 % [facility] Interpretation and review of laboratory results Abnormal [facility] Lymphocytes (Bld) [#/Vol] 0.8 10*3/uL Low [facility] Lymphocytes/100 WBC (Bld) 13.6 % [facility] MCH (RBC) [Entitic mass] 27.9 pg 26. 0 - 34.0 pg [facility] MCHC (RBC) [Mass/Vol] 30.5 g/dL 30.5 - 36.0 g/dL [facility] MCV (RBC) [Entitic vol] 91.4 fL 80.0 - 100.0 fL [facility] Monocytes (Bld) [#/Vol] 0.51 10*3/uL [facility] Monocytes/100 WBC (Bld) 8.7 % [facility] Neutrophils (Bld) [#/Vol] 4.25 10*3/uL [facility] Neutrophils/100 WBC (Bld) 72.2 % [facility] Nucleated RBC (Bld) [#/Vol] [facility] Nucleated RBC/100 WBC (Bld) [Ratio] 0 % /100 WBC [facility] Platelet mean volume (Bld) [Entitic vol] 10.5 fL 9.0 - 12.7 fL [facility] Platelets (Bld) [#/Vol] 310 10*3/uL [facility] RBC (Bld) [#/Vol] 4.19 10*6/uL Low 4.20 - 6.0 0 m/uL [facility] WBC (Bld) [#/Vol] 5.89 10*3/uL [facility] Anion gap in Serum or Plasma Ordered By: Carla Crane on 12-02-2024 Anion gap [Moles/Vol] 11 mmol/L -15 [facility] BUN/creatinine ratioOrdered By: Carla Crane on 12-02-2024 Urea nitrogen/Creatinine [Mass ratio] 23.5 mg/mg High - [facility] Basic Metabolic Profile (BMP )on 12-02-2024 BUN/CRE 23.5 RATIO High - [facility] Comment on above: Order Comment: 307.2 Performed By: #### L 100.0500, L500.2500, L506.1001 ####[facility] [address] [place], [address] Calcium [Mass/Vol] 9.4 mg/dL Normal 7.6-11.0 [facility] Comment on above: Order Comment: 307.2 Performed By: #### L 100.0500, L500.2500, L506.1001 ####[facility] [address] [place], [address] Chloride [Moles/Vol] 104 mmol/L Normal 98-108 [facility] Comment on above: Order Comment: 307.2 Performed By: #### L 100.0500, L500.2500, L506.1001 ####[facility] [address] [place], [address] CO2 [Moles/Vol] 25.5 mmol/L Normal 21.0-32.0 [facility] Comment on above: Order Comment: 307.2 Performed By: #### L 100.0500, L500.2500, L506.1001 ####[facility] [address] [place], [address] Creatinine [Mass/Vol] 1.21 mg/dL High 0.70-1.20 [facility] Comment on above: Order Comment: 307.2 Performed By: #### L 100.0500, L500.2500, L506.1001 ####[facility] [address] [place], [address] GAP 11 Normal 5-15 [facility] Comment on above: Order Comment: 307.2 Performed By: #### L 100.0500, L500.2500, L506.1001 ####[facility] [address] [place], [address] GFR/1.73 sq M.predicted among non-blacks MDRD (S/P/Bld) [Vol rate/Area] 62 mL/min/{1.73_m2} Normal >60 [facility] Comment on above: Order Comment: 307.2 Result Comment: mL/m in/1.73m2 CKD-EPI Creatinine Equation (2020) Performed By: #### L 100.0500, L500.2500, L506.1001 ####[facility] [address] [place], [address] Glucose [Mass/Vol] 86 mg/dL Normal 70-99 [facility] Comment on above: Order Comment: 307.2 Performed By: #### L 100.0500, L500.2500, L506.1001 ####[facility] [address] [place], [address] Potassium [Moles/Vol] 4.1 mmol/L Normal 3.3-5.1 [facility] Comment on above: Order Comment: 307.2 Performed By: #### L 100.0500, L500.2500, L506.1001 ####[facility] [address] [place], [address] Sodium [Moles/Vol] 141 mmol/L Normal 133-145 [facility] Comment on above: Order Comment: 307.2 Performed By: #### L 100.0500, L500.2500, L506.1001 ####[facility] [address] [place], [address] Urea nitrogen [Mass/Vol] 28 mg/dL High 4-19 [facility] Comment on above: Order Comment: 307.2 Performed By: #### L 100.0500, L500.2500, L506.1001 ####[facility] [address] [place], [address] CBC-Complete Blood Cnt No Di ffon 12-02-2024 Erythrocyte distribution width (RBC) [Ratio] 13.2 % Normal 11.6-14.6 [facility] Comment on above: Order Comment: 307.2 Performed By: #### L 100.0500, L500.2500, L506.1001 ####[facility] [address] [place], [address] Hematocrit (Bld) [Volume fraction] 35.2 % Low 40-54 [facility] Comment on above: Order Comment: 307.2 Performed By: #### L 100.0500, L500.2500, L506.1001 ####[facility] [address] [place], [address] Hemoglobin (Bld) [Mass/Vol] 11.1 g/dL Low 13.0-16.5 [facility] Comment on above: Order Comment: 307.2 Performed By: #### L 100.0500, L500.2500, L506.1001 ####[facility] [address] [place], [address] MCH (RBC) [Entitic mass] 28.6 pg Normal 27.0-32.0 [facility] Comment on above: Order Comment: 307.2 Performed By: #### L 100.0500, L500.2500, L506.1001 ####[facility] [address] [place], [address] MCHC (RBC) [Mass/Vol] 31.5 g/dL Low 32-36 [facility] Comment on above: Order Comment: 307.2 Performed By: #### L 100.0500, L500.2500, L506.1001 ####[facility] [address] [place], [address] MCV (RBC) [Entitic vol] 90.7 fL Normal 80-94 [facility] Comment on above: Order Comment: 307.2 Performed By: #### L 100.0500, L500.2500, L506.1001 ####[facility] [address] [place], [address] Platelet mean volume (Bld) [Entitic vol] 10.2 fL Normal 6.2-12.0 [facility] Comment on above: Order Comment: 307.2 Performed By: #### L 100.0500, L500.2500, L506.1001 ####[facility] [address] [place], [address] Platelets (Bld) [#/Vol] 314 10*3/uL Normal 150-450 [facility] Comment on above: Order Comment: 307.2 Performed By: #### L 100.0500, L500.2500, L506.1001 ####[facility] [address] [place], [address] RBC (Bld) [#/Vol] 3.88 10*6/uL Low 4.6-6.2 [facility] Comment on above: Order Comment: 307.2 Performed By: #### L 100.0500, L500.2500, L506.1001 ####[facility] [address] [place], [address] RDW SD 43.6 fl Normal 35.1-43.9 [facility] Comment on above: Order Comment: 307.2 Performed By: #### L 100.0500, L500.2500, L506.1001 ####[facility] [address] [place], [address] WBC (Bld) [#/Vol] 5.1 10*3/uL Normal 4.4-11.0 [facility] Comment on above: Order Comment: 307.2 Performed By: #### L 100.0500, L500.2500, L506.1001 ####[facility] [address] [place], [address] Carbon dioxide, total [Moles /volume] in Central venous bloodOrdered By: Carla Crane on 12-02-2024 CO2 [Moles/Vol] 25.5 mmol/L 21.0-32.0 [facility] Chloride assayOrdered By: Wilfredo Crane on 12-02-2024 Chloride [Moles/Vol] 104 mmol/L 98-108 [facility] Erythrocyte distribution wid th ratioOrdered By: Carla Crane on 12-02-2024 Erythrocyte distribution width (RBC) [Ratio] 13.2 % 11.6-14.6 [facility] Erythrocyte distribution wid th standard deviationOrdered By: Carla Crane on 12-02-2024 Erythrocyte distribution width (RBC) [Ratio] 43.6 fl 35.1-43.9 [facility] Glomerular filtration rate ( GFR) estimation/1.73 sq m using serum, plasma, or whole bOrdered By: Carla Crane on 12-02-2024 GFR/1.73 sq M.predicted among non-blacks MDRD (S/P/Bld) [Vol rate/Area] 62 mL/min/{1.73_m2} >60 [facility] Comment on above: mL/min/1.73m2 CKD-EP I Creatinine Equation (2020) Hematocrit Auto (Bld) [Volum e fraction]Ordered By: Carla Crane on 12-02-2024 Hematocrit (Bld) [Volume fraction] 35.2 % Low 40-54 [facility] Hemoglobin measurementOrdere d By: Carla Crane on 12-02-2024 Hemoglobin (Bld) [Mass/Vol] 11.1 g/dL Low 13.0-16.5 [facility] MCV (mean corpuscular volume ) determinationOrdered By: Carla Crane on 12-02-2024 MCV (RBC) [Entitic vol] 90.7 fL 80-94 [facility] Mean corpuscular hemoglobin (MCH) determinationOrdered By: Carla Crane on 12-02-2024 MCH (RBC) [Entitic mass] 28.6 pg 27.0-32.0 [facility] Mean corpuscular hemoglobin concentration (MCHC) determinationOrdered By: Carla Crane on 12-02-2024 MCHC (RBC) [Mass/Vol] 31.5 g/dL Low 32-36 [facility] Mean platelet volume determi nationOrdered By: Carla Crane on 12-02-2024 Platelet mean volume (Bld) [Entitic vol] 10.2 fL 6.2-12.0 [facility] Platelet countOrdered By: Wilfredo Crane on 12-02-2024 Platelets (Bld) [#/Vol] 314 10*3/uL 150-450 [facility] Potassium measurement (mass/ volume)Ordered By: Carla Crane on 12-02-2024 Potassium (Unsp spec) [Mass/Vol] 4.1 mmol/L 3.3-5.1 [facility] RBC Auto (Bld) [#/Vol]Ordere d By: Carla Crane on 12-02-2024 RBC (Bld) [#/Vol] 3.88 10*6/uL Low 4.6-6.2 [facility] Serum creatinine measurement (mass/volume)Ordered By: Carla Crane on 12-02-2024 Creatinine [Mass/Vol] 1.21 mg/dL High 0.70-1.20 [facility] Serum glucose measurement (m ass/volume)Ordered By: Carla Crane on 12-02-2024 Glucose [Mass/Vol] 86 mg/dL 70-99 [facility] Serum or plasma calcium luis urement (mass/volume)Ordered By: Carla Crane on 12-02-2024 Calcium [Mass/Vol] 9.4 mg/dL 7.6-11.0 [facility] Serum or plasma urea nitroge n measurement (mass/volume)Ordered By: Carla Crane on 12-02-2024 Urea nitrogen [Mass/Vol] 28 mg/dL High 4-19 [facility] Sodium levelOrdered By: Luca Crane on 12-02-2024 Sodium [Moles/Vol] 141 mmol/L 133-145 [facility] Vitamin D,25 Hydroxyon 12-02 Vitamin D 25-OH 46.6 ng/mL Normal 30-100 [facility] Comment on above: Order Comment: 307.2 Result Comment: Teri min D StatusDeficiency: <20 ng/mL (50nmol/L)Insufficiency: 20-30 ng/mL (50-75 nmol/L)Sufficiency: 30-100 ng/mL (75-250 nmol/L)Toxicity: >100 ng/mL (>250 nmol/L) Performed By: #### L 100.0500, L500.2500, L506.1001 ####[facility] [address] [place], [place], [id number] White blood cell (WBC) count Ordered By: Carla Crane on 12-02-2024 WBC (Bld) [#/Vol] 5.1 10*3/uL 4.4-11.0 [facility] Calculated very low density lipoprotein (VLDL) cholesterol measurementOrdered By: Carla Crane on 11-05-2024 Calculated very low density lipoprotein (VLDL) cholesterol measurement 13 mg/dL 5-40 [facility] LDL calc ser/plasOrdered By: Carla Crane on 11-05-2024 Cholesterol in LDL [Mass/Vol] 63 mg/dL [facility] Comment on above: Tnrxjjskga=751-118 m g/dL & Higher Sgnb=860 mg/dL or greater Lipid Profileon 11-05-2024 CHOL:HDL 2.18 Normal [facility] Comment on above: Order Comment: 307.2 Performed By: #### L 500.4100, L506.1001 ####[facility] [address] [place], [place], [id number] Cholesterol [Mass/Vol] 140 mg/dL Normal <=200 [facility] Comment on above: Order Comment: 307.2 Result Comment: Chol esterol level, Desirable <200 mg/dLBorderline high cholesterol 200-239 mg/dLHigh cholesterol >=240 mg/dLRecommendations of the NCEP Adult Treatment Panel for thefollowing risk-cutoff thresholds for the [place] Americanpulation. Performed By: #### L 500.4100, L506.1001 ####[facility] [address] [place], [address] Cholesterol in HDL [Mass/Vol] 64 mg/dL Normal [facility] Comment on above: Order Comment: 307.2 Result Comment: Yasmin onal Cholesterol Education Program (NCEP) guidelines:<40 mg/dL: Low HDL-cholesterol (major risk factor for CHD)>= 60 mg/dL: High HDL-cholesterol (negative risk factor forCHD)HDL-cholesterol is affected by a number of factors, e.g.smoking, exercise, hormones, sex and age. Performed By: #### L 500.4100, L506.1001 ####[facility] [address] [place], [address] Cholesterol in LDL [Mass/Vol] 63 mg/dL Normal [facility] Comment on above: Order Comment: 307.2 Result Comment: Bord zfaqbs=243-829 mg/dL Higher Lwkq=211 mg/dL or greater Performed By: #### L 500.4100, L506.1001 ####[facility] [address] [place], [address] Cholesterol in VLDL [Mass/Vol] 13 mg/dL Normal 5-40 [facility] Comment on above: Order Comment: 307.2 Performed By: #### L 500.4100, L506.1001 ####[facility] [address] [place], [address] Triglyceride [Mass/Vol] 63 mg/dL Normal [facility] Comment on above: Order Comment: 307.2 Result Comment: The drugs N-Acetylcysteine and Metamizole may falselydepress this assay.Normal range: <150 mg/dLBorderline High: 150-199 mg/dLHigh: 200-499 mg/dLVery High: >500 mg/dL Performed By: #### L 500.4100, L506.1001 ####[facility] [address] [place], [address] Screening total cholesterol/ high density lipoprotein (HDL) cholesterol ratioOrdered By: Carla Crane on 11-05-2024 Cholesterol.total/Choles terol in HDL [Mass ratio] 2.18 {ratio} [facility] Serum or plasma cholesterol in HDL measurement (mass/volume)Ordered By: Carla Crane on 11-05-2024 Cholesterol in HDL [Mass/Vol] 64 mg/dL >40 [facility] Comment on above: National Cholesterol Education Program (NCEP) guidelines:<40 mg/dL: Low HDL-cholesterol (major risk factor for CHD)>= 60 mg/dL: High HDL-cholesterol (negative risk factor for CHD)HDL-cholesterol is affected by a number of factors, e.g. smoking, exercise, hormones, sex and age. Serum or plasma cholesterol measurement (mass/volume)Ordered By: Carla Crane on 11-05-2024 Cholesterol [Mass/Vol] 140 mg/dL <201 [facility] Comment on above: Cholesterol level, D esirable <200 mg/dLBorderline high cholesterol 200-239 mg/dLHigh cholesterol >=240 mg/dLRecommendations of the NCEP Adult Treatment Panel for the following risk-cutoff thresholds for the [place] population. Triglycerides measurementOrd ered By: Carla Crane on 11-05-2024 Triglyceride [Mass/Vol] 63 mg/dL <199 [facility] Comment on above: The drugs N-Acetylcy steine and Metamizole may falsely depress this assay. Normal range: <150 mg/dLBorderline High: 150-199 mg/dLHigh: 200-499 mg/dLVery High: >500 mg/dL Vitamin D,25 Hydroxyon 11-05 Vitamin D 25-OH 51.2 ng/mL Normal 30-100 [facility] Comment on above: Order Comment: 307.2 Result Comment: Teri min D StatusDeficiency: <20 ng/mL (50nmol/L)Insufficiency: 20-30 ng/mL (50-75 nmol/L)Sufficiency: 30-100 ng/mL (75-250 nmol/L)Toxicity: >100 ng/mL (>250 nmol/L) Performed By: #### L 500.9970, L506.1001 ####[facility] [address] [place], [address] Lipid Profileon 11-04-2024 CHOL Normal <=200 [facility] Comment on above: Order Comment: 307-2 Result Comment: MICHOACANO ENT REFUSED-NOTFIED NURSE Performed By: #### L 500.4100 ####[facility] [address] [place], [address] CHOL:HDL Normal [facility] Comment on above: Order Comment: 307-2 Result Comment: MICHOACANO ENT REFUSED-NOTFIED NURSE Performed By: #### L 500.4100 ####[facility] [address] [place], [address] CLDL Normal [facility] Comment on above: Order Comment: 307-2 Result Comment: MICHOACANO ENT REFUSED-NOTFIED NURSE Performed By: #### L 500.4100 ####[facility] [address] [place], [address] HDL Normal [facility] Comment on above: Order Comment: 307-2 Result Comment: MICHOACANO ENT REFUSED-NOTFIED NURSE Performed By: #### L 500.4100 ####[facility] [address] [place], [address] TRIG Normal [facility] Comment on above: Order Comment: 307-2 Result Comment: MICHOACANO ENT REFUSED-NOTFIED NURSE Performed By: #### L 500.4100 ####[facility] [address] [place], [address] VLDL Normal 5-40 [facility] Comment on above: Order Comment: 307-2 Result Comment: MICHOACANO ENT REFUSED-NOTFIED NURSE Performed By: #### L 500.4100 ####[facility] [address] [place], [address] Carbamazepine (Tegretol)on 0 10-16-2024 CARBAMAZEPINE 7.1 ug/mL Normal 4.0-12.0 [facility] Comment on above: Order Comment: 300 Performed By: #### L 501.7900 ####[facility] [address] [place], [address] Serum or plasma carbamazepin e level (mass/volume)Ordered By: Carla Crane on 10-16-2024 carBAMazepine [Mass/Vol] 7.1 ug/mL 4.0-12.0 [facility] Urine Cultureon 09-08-2024 URC Normal [facility] Comment on above: Performed By: #### M 100.2200, L400.0001 ####[facility] [address] [place], [address] Anion gap in Serum or Plasma Ordered By: Celia Toribio on 09-02-2024 Anion gap [Moles/Vol] 11 mmol/L 5-15 [facility] BUN/creatinine ratioOrdered By: Celia Toribio on 09-02-2024 Urea nitrogen/Creatinine [Mass ratio] 27.0 mg/mg High 10-20 [facility] Basic Metabolic Profile (BMP )on 09-02-2024 BUN/CRE 27.0 RATIO High [facility] Comment on above: Performed By: #### L 500.2500, L100.0100 ####[facility] [address] [place], [address] Calcium [Mass/Vol] 9.2 mg/dL Normal 7.6-11.0 [facility] Comment on above: Performed By: #### L 500.2500, L100.0100 ####[facility] [address] [place], [address] Chloride [Moles/Vol] 106 mmol/L Normal 98-108 [facility] Comment on above: Performed By: #### L 500.2500, L100.0100 ####[facility] [address] [place], [address] CO2 [Moles/Vol] 20.8 mmol/L Low 21.0-32.0 [facility] Comment on above: Performed By: #### L 500.2500, L100.0100 ####[facility] [address] [place], [address] Creatinine [Mass/Vol] 1.22 mg/dL High 0.70-1.20 [facility] Comment on above: Performed By: #### L 500.2500, L100.0100 ####[facility] [address] [place], [address] ECRCL 50.54 ml/min Normal 50-250 [facility] Comment on above: Performed By: #### L 500.2500, L100.0100 ####[facility] [address] [place], [address] GAP 11 Normal 5-15 [facility] Comment on above: Performed By: #### L 500.2500, L100.0100 ####[facility] [address] [place], [address] GFR/1.73 sq M.predicted among non-blacks MDRD (S/P/Bld) [Vol rate/Area] 62 mL/min/{1.73_m2} Normal >60 [facility] Comment on above: Result Comment: mL/m in/1.73m2 CKD-EPI Creatinine Equation (2020) Performed By: #### L 500.2500, L100.0100 ####[facility] [address] [place], [address] Glucose [Mass/Vol] 99 mg/dL Normal 70-99 [facility] Comment on above: Performed By: #### L 500.2500, L100.0100 ####[facility] [address] [place], [address] Potassium [Moles/Vol] 4.0 mmol/L Normal 3.3-5.1 [facility] Comment on above: Performed By: #### L 500.2500, L100.0100 ####[facility] [address] [place], [address] Sodium [Moles/Vol] 138 mmol/L Normal 133-145 [facility] Comment on above: Performed By: #### L 500.2500, L100.0100 ####[facility] [address] [place], [address] Urea nitrogen [Mass/Vol] 33 mg/dL High 4-19 [facility] Comment on above: Performed By: #### L 500.2500, L100.0100 ####[facility] [address] [place], [address] CBC W/Diff, Automatedon 08-17 Absolute Neut Normal 2.0-7.7 [facility] Comment on above: Result Comment: Canc elled via OM: MD Ordered Performed By: #### L 500.2500, L100.0100 ####[facility] [address] [place], [address] HCT Normal 40-54 [facility] Comment on above: Result Comment: Canc elled via OM: MD Ordered Performed By: #### L 500.2500, L100.0100 ####[facility] [address] [place], [address] HGB Normal 13.0-16.5 [facility] Comment on above: Result Comment: Canc elled via OM: MD Ordered Performed By: #### L 500.2500, L100.0100 ####[facility] [address] [place], [address] MCH Normal 27.0-32.0 [facility] Comment on above: Result Comment: Canc elled via OM: MD Ordered Performed By: #### L 500.2500, L100.0100 ####[facility] [address] [place], [address] MCHC Normal 32-36 [facility] Comment on above: Result Comment: Canc elled via OM: MD Ordered Performed By: #### L 500.2500, L100.0100 ####[facility] [address] [place], [address] MCV Normal 80-94 [facility] Comment on above: Result Comment: Canc elled via OM: MD Ordered Performed By: #### L 500.2500, L100.0100 ####[facility] [address] [place], [address] NEUT% Normal 47-70 [facility] Comment on above: Result Comment: Canc elled via OM: MD Ordered Performed By: #### L 500.2500, L100.0100 ####[facility] [address] [place], [address] PLT Normal 150-450 [facility] Comment on above: Result Comment: Canc elled via OM: MD Ordered Performed By: #### L 500.2500, L100.0100 ####[facility] [address] [place], [address] RBC Normal 4.6-6.2 [facility] Comment on above: Result Comment: Canc elled via OM: MD Ordered Performed By: #### L 500.2500, L100.0100 ####[facility] [address] [place], [address] RDW CV Normal 11.6-14.6 [facility] Comment on above: Result Comment: Canc elled via OM: MD Ordered Performed By: #### L 500.2500, L100.0100 ####[facility] [address] [place], [address] RDW SD Normal 35.1-43.9 [facility] Comment on above: Result Comment: Canc elled via OM: MD Ordered Performed By: #### L 500.2500, L100.0100 ####[facility] [address] [place], [address] WBC Normal 4.4-11.0 [facility] Comment on above: Result Comment: Bethanie luna via OM: Ordered Performed By: #### L 500.2500, L100.0100 ####[facility] [address] [place], [address] Carbon dioxide, total [Moles /volume] in Central venous bloodOrdered By: Celia Toribio on 09-02-2024 CO2 [Moles/Vol] 20.8 mmol/L Low 21.0-32.0 [facility] Chloride assayOrdered By: Yariel Toribio on 09-02-2024 Chloride [Moles/Vol] 106 mmol/L 98-108 [facility] Estimation of creatinine zeke aranceOrdered By: Celia Toribio on 09-02-2024 Estimated Creatinine Clearance Calc 50.54 ml/min 50-250 [facility] GFR/1.73 sq M.predicted gisella g non-blacks MDRD (S/P/Bld) [Vol rate/Area]Ordered By: Celia Toribio on 09-02-2024 Estimated GFR (MDRD) Non-Af Amer 62 >60 [facility] Comment on above: mL/min/1.73m2 CKD-EP I Creatinine Equation (2020) Glomerular filtration rate ( GFR) estimation/1.73 sq m using serum, plasma, or whole bOrdered By: Celia Toribio on 09-02-2024 GFR/1.73 sq M.predicted among non-blacks MDRD (S/P/Bld) [Vol rate/Area] 62 mL/min/{1.73_m2} >60 [facility] Comment on above: mL/min/1.73m2 CKD-EP I Creatinine Equation (2020) Potassium (Unsp spec) [Mass/ Vol]Ordered By: Celia Toribio on 09-02-2024 Potassium [Moles/Vol] 4.0 mmol/L 3.3-5.1 [facility] Potassium measurement (mass/ volume)Ordered By: Celia Toribio on 09-02-2024 Potassium (Unsp spec) [Mass/Vol] 4.0 mmol/L 3.3-5.1 [facility] Serum creatinine measurement (mass/volume)Ordered By: Celia Toribio on 09-02-2024 Creatinine [Mass/Vol] 1.22 mg/dL High 0.70-1.20 [facility] Serum glucose measurement (m ass/volume)Ordered By: Celia Toribio on 09-02-2024 Glucose [Mass/Vol] 99 mg/dL 70-99 [facility] Serum or plasma calcium luis urement (mass/volume)Ordered By: Celia Toribio on 09-02-2024 Calcium [Mass/Vol] 9.2 mg/dL 7.6-11.0 [facility] Serum or plasma urea nitroge n measurement (mass/volume)Ordered By: Celia Toribio on 09-02-2024 Urea nitrogen [Mass/Vol] 33 mg/dL High 4-19 [facility] Sodium levelOrdered By: Rigoberto Toribio on 09-02-2024 Sodium [Moles/Vol] 138 mmol/L 133-145 [facility] Absolute lymphocyte countOrd ered By: Celia Toribio on 09-01-2024 Lymphocytes Auto (Unsp spec) [#/Vol] 1.45 10*3/uL 0.83-4.51 [facility] Absolute neutrophil countOrd ered By: Celia Toribio on 09-01-2024 Neutrophils (Bld) [#/Vol] 4.9 10*3/uL 2.0-7.7 [facility] Automated lymphocyte count a s percentage of total leukocytesOrdered By: Celia Toribio on 09-01-2024 Lymphocytes/100 WBC Auto (Unsp spec) 20.9 % 19-41 [facility] Basic Metabolic Profile (BMP )on 09-01-2024 BUN/CRE 26.8 RATIO High 10-20 [facility] Comment on above: Order Comment: PT RE FUSED REPORTED TO SEYMOUR STORY. SEYMOUR STORY SAID SHE WOULDTRY TO DRAW. Performed By: #### L 500.0123 ####[facility] [address] [place], [address] Calcium [Mass/Vol] 9.6 mg/dL Normal 7.6-11.0 [facility] Comment on above: Order Comment: PT RE FUSED REPORTED TO SEYMOUR JEZ. RN JEZ SAID SHE WOULDTRY TO DRAW. Performed By: #### L 500.2500 ####[facility] [address] [place], [address] Chloride [Moles/Vol] 102 mmol/L Normal 98-108 [facility] Comment on above: Order Comment: PT RE FUSED REPORTED TO RN JEZ. RN JEZ SAID SHE WOULDTRY TO DRAW. Performed By: #### L 500.2500 ####[facility] [address] [facility] [address] CO2 [Moles/Vol] 21.9 mmol/L Normal 21.0-32.0 [facility] Comment on above: Order Comment: PT RE FUSED REPORTED TO RN JEZ. RN JEZ SAID SHE WOULDTRY TO DRAW. Performed By: #### L 500.2500 ####[facility] [address] [facility] [address] Creatinine [Mass/Vol] 1.44 mg/dL High 0.70-1.20 [facility] Comment on above: Order Comment: PT RE FUSED REPORTED TO RN JEZ. RN JEZ SAID SHE WOULDTRY TO DRAW. Performed By: #### L 500.2500 ####[facility] [address] [facility] [address] ECRCL 42.38 ml/min Low 50-250 [facility] Comment on above: Order Comment: PT RE FUSED REPORTED TO RN JEZ. RN JEZ SAID SHE WOULDTRY TO DRAW. Performed By: #### L 500.2500 ####[facility] [address] [facility] [address] GAP 13 Normal 5-15 [facility] Comment on above: Order Comment: PT RE FUSED REPORTED TO RN JEZ. RN JEZ SAID SHE WOULDTRY TO DRAW. Performed By: #### L 500.2500 ####[facility] [address] [facility] [address] GFR/1.73 sq M.predicted among non-blacks MDRD (S/P/Bld) [Vol rate/Area] 51 mL/min/{1.73_m2} Low >60 [facility] Comment on above: Order Comment: PT RE FUSED REPORTED TO SEYMOUR STORY. RN JEZ SAID SHE WOULDTRY TO DRAW. Result Comment: mL/m in/1.73m2 CKD-EPI Creatinine Equation (2020) Performed By: #### L 500.2500 ####[facility] [address] [facility] [address] Glucose [Mass/Vol] 118 mg/dL High 70-99 [facility] Comment on above: Order Comment: PT RE FUSED REPORTED TO SEYMOUR STORY. RN JEZ SAID SHE WOULDTRY TO DRAW. Performed By: #### L 500.2500 ####[facility] [address] [facility] [address] Potassium [Moles/Vol] 4.1 mmol/L Normal 3.3-5.1 [facility] Comment on above: Order Comment: PT RE FUSED REPORTED TO SEYMOUR STORY. RN JEZ SAID SHE WOULDTRY TO DRAW. Performed By: #### L 500.2500 ####[facility] [address] [facility] [address] Sodium [Moles/Vol] 137 mmol/L Normal 133-145 [facility] Comment on above: Order Comment: PT RE FUSED REPORTED TO SEYMOUR STORY. RN JEZ SAID SHE WOULDTRY TO DRAW. Performed By: #### L 500.2500 ####[facility] [address] [facility] [address] Urea nitrogen [Mass/Vol] 39 mg/dL High 4-19 [facility] Comment on above: Order Comment: PT RE FUSED REPORTED TO SEYMOUR STORY. SEYMOUR STORY SAID SHE WOULDTRY TO DRAW. Performed By: #### L 500.2500 ####[facility] [address] [place], [address] BUN/CRE 30.2 RATIO High 10-20 [facility] Comment on above: Performed By: #### L 100.0100, L500.2500 ####[facility] [address] [place], [address] Calcium [Mass/Vol] 9.7 mg/dL Normal 7.6-11.0 [facility] Comment on above: Performed By: #### L 100.0100, L500.2500 ####[facility] [address] [place], [address] Chloride [Moles/Vol] 103 mmol/L Normal 98-108 [facility] Comment on above: Performed By: #### L 100.0100, L500.2500 ####[facility] [address] [place], [address] CO2 [Moles/Vol] 19.4 mmol/L Low 21.0-32.0 [facility] Comment on above: Performed By: #### L 100.0100, L500.2500 ####[facility] [address] [place], [address] Creatinine [Mass/Vol] 1.33 mg/dL High 0.70-1.20 [facility] Comment on above: Performed By: #### L 100.0100, L500.2500 ####[facility] [address] [place], [address] ECRCL 45.89 ml/min Low 50-250 [facility] Comment on above: Performed By: #### L 100.0100, L500.2500 ####[facility] [address] [place], [address] GAP 16 High 5-15 [facility] Comment on above: Performed By: #### L 100.0100, L500.2500 ####[facility] [address] [place], [address] GFR/1.73 sq M.predicted among non-blacks MDRD (S/P/Bld) [Vol rate/Area] 56 mL/min/{1.73_m2} Low >60 [facility] Comment on above: Result Comment: mL/m in/1.73m2 CKD-EPI Creatinine Equation (2020) Performed By: #### L 100.0100, L500.2500 ####[facility] [address] [place], [address] Glucose [Mass/Vol] 83 mg/dL Normal 70-99 [facility] Comment on above: Performed By: #### L 100.0100, L500.2500 ####[facility] [address] [place], [address] Potassium [Moles/Vol] 3.8 mmol/L Normal 3.3-5.1 [facility] Comment on above: Performed By: #### L 100.0100, L500.2500 ####[facility] [address] [place], [address] Sodium [Moles/Vol] 139 mmol/L Normal 133-145 [facility] Comment on above: Performed By: #### L 100.0100, L500.2500 ####[facility] [address] [place], [address] Urea nitrogen [Mass/Vol] 40 mg/dL High 4-19 [facility] Comment on above: Performed By: #### L 100.0100, L500.2500 ####[facility] [address] [place], [address] Basophil percentageOrdered B y: Celia Toribio on 09-01-2024 Basophils/100 WBC (Bld) 1.0 % 0-1 [facility] CBC W/Diff, Automatedon 08-17 Absolute Lymph 1.45 X10 3/uL Normal 0.83-4.51 [facility] Comment on above: Performed By: #### L 100.0100 ####[facility] [address] [place], [address] Absolute Neut 4.9 X10 3/uL Normal 2.0-7.7 [facility] Comment on above: Performed By: #### L 100.0100 ####[facility] [address] [place], [address] Basophils/100 WBC (Bld) 1.0 % Normal 0-1 [facility] Comment on above: Performed By: #### L 100.0100 ####[facility] [address] [place], [address] Eosinophils/100 WBC (Bld) 0.4 % Normal 0-5 [facility] Comment on above: Performed By: #### L 100.0100 ####[facility] [address] [place], [address] Erythrocyte distribution width (RBC) [Ratio] 13.3 % Normal 11.6-14.6 [facility] Comment on above: Performed By: #### L 100.0100 ####[facility] [address] [place], [address] Hematocrit (Bld) [Volume fraction] 43.2 % Normal 40-54 [facility] Comment on above: Performed By: #### L 100.0100 ####[facility] [address] [place], [address] Hemoglobin (Bld) [Mass/Vol] 14.1 g/dL Normal 13.0-16.5 [facility] Comment on above: Performed By: #### L 100.0100 ####[facility] [address] [place], [address] IG% 0.600 Normal 0.0-0.9 [facility] Comment on above: Result Comment: IG% - Immature Granulocytes (promyelocytes, myelocytes andmetamyelocytes) > 1% indicates that a LEFT SHIFT is Present. Performed By: #### L 100.0100 ####[facility] [address] [place], [address] Lymphocytes/100 WBC (Bld) 20.9 % Normal 19-41 [facility] Comment on above: Performed By: #### L 100.0100 ####[facility] [address] [place], [address] MCH (RBC) [Entitic mass] 31.4 pg Normal 27.0-32.0 [facility] Comment on above: Performed By: #### L 100.0100 ####[facility] [address] [place], [address] MCHC (RBC) [Mass/Vol] 32.6 g/dL Normal 32-36 [facility] Comment on above: Performed By: #### L 100.0100 ####[facility] [address] [place], [address] MCV (RBC) [Entitic vol] 96.2 fL High 80-94 [facility] Comment on above: Performed By: #### L 100.0100 ####[facility] [address] [place], [address] Monocytes/100 WBC (Bld) 6.2 % Normal 0-10 [facility] Comment on above: Performed By: #### L 100.0100 ####[facility] [address] [place], [address] Neutrophils/100 WBC (Bld) 70.9 % High 47-70 [facility] Comment on above: Performed By: #### L 100.0100 ####[facility] [address] [place], [address] Nucleated RBC (Bld) [#/Vol] 0 10*3/uL Normal 0-5 [facility] Comment on above: Performed By: #### L 100.0100 ####[facility] [address] [place], [address] Platelet mean volume (Bld) [Entitic vol] 9.5 fL Normal 6.2-12.0 [facility] Comment on above: Performed By: #### L 100.0100 ####[facility] [address] [place], [address] Platelets (Bld) [#/Vol] 367 10*3/uL Normal 150-450 [facility] Comment on above: Performed By: #### L 100.0100 ####[facility] [address] [place], [address] RBC (Bld) [#/Vol] 4.49 10*6/uL Low 4.6-6.2 [facility] Comment on above: Performed By: #### L 100.0100 ####[facility] [address] [place], [address] RDW SD 47.4 fl High 35.1-43.9 [facility] Comment on above: Performed By: #### L 100.0100 ####[facility] [address] [place], [address] WBC (Bld) [#/Vol] 6.9 10*3/uL Normal 4.4-11.0 [facility] Comment on above: Performed By: #### L 100.0100 ####[facility] [address] [place], [address] Absolute Neut Normal 2.0-7.7 [facility] Comment on above: Result Comment: Bethanie luna via TINO: Ordered Performed By: #### L 100.0100, L500.2500 ####[facility] [address] [place], [address] HCT Normal 40-54 [facility] Comment on above: Result Comment: Canc elled via OM: MD Ordered Performed By: #### L 100.0100, L500.2500 ####[facility] [address] [place], [address] HGB Normal 13.0-16.5 [facility] Comment on above: Result Comment: Canc elled via OM: MD Ordered Performed By: #### L 100.0100, L500.2500 ####[facility] [address] [place], [address] MCH Normal 27.0-32.0 [facility] Comment on above: Result Comment: Canc elled via OM: MD Ordered Performed By: #### L 100.0100, L500.2500 ####[facility] [address] [place], [address] MCHC Normal 32-36 [facility] Comment on above: Result Comment: Canc elled via OM: MD Ordered Performed By: #### L 100.0100, L500.2500 ####[facility] [address] [place], [address] MCV Normal 80-94 [facility] Comment on above: Result Comment: Canc elled via OM: MD Ordered Performed By: #### L 100.0100, L500.2500 ####[facility] [address] [place], [address] NEUT% Normal 47-70 [facility] Comment on above: Result Comment: Canc elled via OM: MD Ordered Performed By: #### L 100.0100, L500.2500 ####[facility] [address] [place], [address] PLT Normal 150-450 [facility] Comment on above: Result Comment: Canc elled via OM: MD Ordered Performed By: #### L 100.0100, L500.2500 ####[facility] [address] [place], [address] RBC Normal 4.6-6.2 [facility] Comment on above: Result Comment: Canc elled via OM: MD Ordered Performed By: #### L 100.0100, L500.2500 ####[facility] [address] [place], [address] RDW CV Normal 11.6-14.6 [facility] Comment on above: Result Comment: Canc elled via OM: MD Ordered Performed By: #### L 100.0100, L500.2500 ####[facility] [address] [place], [address] RDW SD Normal 35.1-43.9 [facility] Comment on above: Result Comment: Canc elled via OM: MD Ordered Performed By: #### L 100.0100, L500.2500 ####[facility] [address] [place], [address] WBC Normal 4.4-11.0 [facility] Comment on above: Result Comment: Canc elled via OM: MD Ordered Performed By: #### L 100.0100, L500.2500 ####[facility] [address] [place], [address] Eosinophil percentageOrdered By: Celia Toribio on 09-01-2024 Eosinophils/100 WBC (Bld) 0.4 % 0-5 [facility] Erythrocyte distribution wid th ratioOrdered By: Celia Toribio on 09-01-2024 Erythrocyte distribution width (RBC) [Ratio] 13.3 % 11.6-14.6 [facility] Erythrocyte distribution wid th standard deviationOrdered By: Celia Toribio on 09-01-2024 Erythrocyte distribution width (RBC) [Entitic vol] 47.4 fL High 35.1-43.9 [facility] Erythrocyte distribution width (RBC) [Ratio] 47.4 fl High 35.1-43.9 [facility] Hematocrit Auto (Bld) [Volum e fraction]Ordered By: Celia Toribio on 09-01-2024 Hematocrit (Bld) [Volume fraction] 43.2 % 40-54 [facility] Hemoglobin measurementOrdere d By: Celia Toribio on 09-01-2024 Hemoglobin (Bld) [Mass/Vol] 14.1 g/dL 13.0-16.5 [facility] Immature granulocytes/100 WB C Auto (Bld)Ordered By: Celia Toribio on 09-01-2024 Immature granulocytes/100 WBC (Bld) 0.600 % 0.0-0.9 [facility] Comment on above: IG% - Immature Granu locytes (promyelocytes, myelocytes and metamyelocytes) > 1% indicates that a LEFT SHIFT is Present. Lymphocytes Auto (Unsp spec) [#/Vol]Ordered By: Celia Toribio on 09-01-2024 Lymphocytes (Bld) [#/Vol] 1.45 10*3/uL 0.83-4.51 [facility] Lymphocytes/100 WBC Auto (Un sp spec)Ordered By: Celia Toribio on 09-01-2024 Lymphocytes/100 WBC (Bld) 20.9 % 19-41 [facility] MCV (mean corpuscular volume ) determinationOrdered By: Celai Toribio on 09-01-2024 MCV (RBC) [Entitic vol] 96.2 fL High 80-94 [facility] Mean corpuscular hemoglobin (MCH) determinationOrdered By: Celia Toribio on 09-01-2024 MCH (RBC) [Entitic mass] 31.4 pg 27.0-32.0 [facility] Mean corpuscular hemoglobin concentration (MCHC) determinationOrdered By: Celia Toribio on 09-01-2024 MCHC (RBC) [Mass/Vol] 32.6 g/dL 32-36 [facility] Mean platelet volume determi nationOrdered By: Celia Toribio on 09-01-2024 Platelet mean volume (Bld) [Entitic vol] 9.5 fL 6.2-12.0 [facility] Monocyte percentageOrdered B y: Celia Toribio on 09-01-2024 Monocytes/100 WBC (Bld) 6.2 % 0-10 [facility] Neutrophil percentageOrdered By: Celia Toribio on 09-01-2024 Neutrophils/100 WBC (Bld) 70.9 % High 47-70 [facility] Nucleated red blood cell per centageOrdered By: Celia Toribio on 09-01-2024 Nucleated RBC/100 WBC (Bld) [Ratio] 0 % 0-5 [facility] Platelet countOrdered By: Yariel Toribio on 09-01-2024 Platelets (Bld) [#/Vol] 367 10*3/uL 150-450 [facility] RBC Auto (Bld) [#/Vol]Ordere d By: Celia Toirbio on 09-01-2024 RBC (Bld) [#/Vol] 4.49 10*6/uL Low 4.6-6.2 [facility] White blood cell (WBC) count Ordered By: Celia Toribio on 09-01-2024 WBC (Bld) [#/Vol] 6.9 10*3/uL 4.4-11.0 [facility] Basic Metabolic Profile (BMP )on 08-31-2024 BUN/CRE 25.7 RATIO High 10-20 [facility] Comment on above: Performed By: #### L 500.2500, L100.0100 ####[facility] [address] [place], [address] Calcium [Mass/Vol] 10.0 mg/dL Normal 7.6-11.0 [facility] Comment on above: Performed By: #### L 500.2500, L100.0100 ####[facility] [address] [place], [address] Chloride [Moles/Vol] 102 mmol/L Normal 98-108 [facility] Comment on above: Performed By: #### L 500.2500, L100.0100 ####[facility] [address] [place], [address] CO2 [Moles/Vol] 21.5 mmol/L Normal 21.0-32.0 [facility] Comment on above: Performed By: #### L 500.2500, L100.0100 ####[facility] [address] [place], [address] Creatinine [Mass/Vol] 1.16 mg/dL Normal 0.70-1.20 [facility] Comment on above: Performed By: #### L 500.2500, L100.0100 ####[facility] [address] [place], [address] ECRCL 52.61 ml/min Normal 50-250 [facility] Comment on above: Performed By: #### L 500.2500, L100.0100 ####[facility] [address] [place], [address] GAP 15 Normal 5-15 [facility] Comment on above: Performed By: #### L 500.2500, L100.0100 ####[facility] [address] [place], [address] GFR/1.73 sq M.predicted among non-blacks MDRD (S/P/Bld) [Vol rate/Area] 66 mL/min/{1.73_m2} Normal >60 [facility] Comment on above: Result Comment: mL/m in/1.73m2 CKD-EPI Creatinine Equation (2020) Performed By: #### L 500.2500, L100.0100 ####[facility] [address] [place], [address] Glucose [Mass/Vol] 93 mg/dL Normal 70-99 [facility] Comment on above: Performed By: #### L 500.2500, L100.0100 ####[facility] [address] [place], [address] Potassium [Moles/Vol] 3.8 mmol/L Normal 3.3-5.1 [facility] Comment on above: Performed By: #### L 500.2500, L100.0100 ####[facility] [address] [place], [address] Sodium [Moles/Vol] 138 mmol/L Normal 133-145 [facility] Comment on above: Performed By: #### L 500.2500, L100.0100 ####[facility] [address] [place], [address] Urea nitrogen [Mass/Vol] 30 mg/dL High 4-19 [facility] Comment on above: Performed By: #### L 500.2500, L100.0100 ####[facility] [address] [place], [address] CBC W/Diff, Automatedon 08-17 Absolute Neut Normal 2.0-7.7 [facility] Comment on above: Result Comment: Canc elled via OM: MD Ordered Performed By: #### L 500.2500, L100.0100 ####[facility] [address] [place], [address] HCT Normal 40-54 [facility] Comment on above: Result Comment: Canc elled via OM: MD Ordered Performed By: #### L 500.2500, L100.0100 ####[facility] [address] [place], [address] HGB Normal 13.0-16.5 [facility] Comment on above: Result Comment: Canc elled via OM: MD Ordered Performed By: #### L 500.2500, L100.0100 ####[facility] [address] [place], [address] MCH Normal 27.0-32.0 [facility] Comment on above: Result Comment: Canc elled via OM: MD Ordered Performed By: #### L 500.2500, L100.0100 ####[facility] [address] [place], [address] MCHC Normal 32-36 [facility] Comment on above: Result Comment: Canc elled via OM: MD Ordered Performed By: #### L 500.2500, L100.0100 ####[facility] [address] [place], [address] MCV Normal 80-94 [facility] Comment on above: Result Comment: Canc elled via OM: MD Ordered Performed By: #### L 500.2500, L100.0100 ####[facility] [address] [place], [address] NEUT% Normal 47-70 [facility] Comment on above: Result Comment: Canc elled via OM: MD Ordered Performed By: #### L 500.2500, L100.0100 ####[facility] [address] [place], [address] PLT Normal 150-450 [facility] Comment on above: Result Comment: Canc elled via OM: MD Ordered Performed By: #### L 500.2500, L100.0100 ####[facility] [address] [place], [address] RBC Normal 4.6-6.2 [facility] Comment on above: Result Comment: Canc elled via OM: MD Ordered Performed By: #### L 500.2500, L100.0100 ####[facility] [address] [place], [address] RDW CV Normal 11.6-14.6 [facility] Comment on above: Result Comment: Canc elled via OM: MD Ordered Performed By: #### L 500.2500, L100.0100 ####[facility] [address] [place], [address] RDW SD Normal 35.1-43.9 [facility] Comment on above: Result Comment: Canc elled via OM: MD Ordered Performed By: #### L 500.2500, L100.0100 ####[facility] [address] [place], [address] WBC Normal 4.4-11.0 [facility] Comment on above: Result Comment: Canc elled via OM: MD Ordered Performed By: #### L 500.2500, L100.0100 ####[facility] [address] [place], [address] Basic Metabolic Profile (BMP )on 08-30-2024 BUN/CRE 21.4 RATIO High 10-20 [facility] Comment on above: Performed By: #### L 500.2500, L100.0100 ####[facility] [address] [place], [address] Calcium [Mass/Vol] 10.1 mg/dL Normal 7.6-11.0 [facility] Comment on above: Performed By: #### L 500.2500, L100.0100 ####[facility] [address] [place], [address] Chloride [Moles/Vol] 102 mmol/L Normal 98-108 [facility] Comment on above: Performed By: #### L 500.2500, L100.0100 ####[facility] [address] [place], [address] CO2 [Moles/Vol] 22.7 mmol/L Normal 21.0-32.0 [facility] Comment on above: Performed By: #### L 500.2500, L100.0100 ####[facility] [address] [place], [address] Creatinine [Mass/Vol] 1.21 mg/dL High 0.70-1.20 [facility] Comment on above: Performed By: #### L 500.2500, L100.0100 ####[facility] [address] [place], [address] ECRCL 51.03 ml/min Normal 50-250 [facility] Comment on above: Performed By: #### L 500.2500, L100.0100 ####[facility] [address] [place], [address] GAP 13 Normal 5-15 [facility] Comment on above: Performed By: #### L 500.2500, L100.0100 ####[facility] [address] [place], [address] GFR/1.73 sq M.predicted among non-blacks MDRD (S/P/Bld) [Vol rate/Area] 62 mL/min/{1.73_m2} Normal >60 [facility] Comment on above: Result Comment: mL/m in/1.73m2 CKD-EPI Creatinine Equation (2020) Performed By: #### L 500.2500, L100.0100 ####[facility] [address] [place], [address] Glucose [Mass/Vol] 94 mg/dL Normal 70-99 [facility] Comment on above: Performed By: #### L 500.2500, L100.0100 ####[facility] [address] [place], [address] Potassium [Moles/Vol] 4.2 mmol/L Normal 3.3-5.1 [facility] Comment on above: Performed By: #### L 500.2500, L100.0100 ####[facility] [address] [place], [address] Sodium [Moles/Vol] 138 mmol/L Normal 133-145 [facility] Comment on above: Performed By: #### L 500.2500, L100.0100 ####[facility] [address] [place], [address] Urea nitrogen [Mass/Vol] 26 mg/dL High 4-19 [facility] Comment on above: Performed By: #### L 500.2500, L100.0100 ####[facility] [address] [place], [address] CBC W/Diff, Automatedon 03- Absolute Lymph 1.00 X10 3/uL Normal 0.83-4.51 [facility] Comment on above: Performed By: #### L 500.2500, L100.0100 ####[facility] [address] [place], [address] Absolute Neut 3.7 X10 3/uL Normal 2.0-7.7 [facility] Comment on above: Performed By: #### L 500.2500, L100.0100 ####[facility] [address] [place], [address] Basophils/100 WBC (Bld) 1.6 % High 0-1 [facility] Comment on above: Performed By: #### L 500.2500, L100.0100 ####[facility] [address] [place], [address] Eosinophils/100 WBC (Bld) 7.8 % High 0-5 [facility] Comment on above: Performed By: #### L 500.2500, L100.0100 ####[facility] [address] [place], [address] Erythrocyte distribution width (RBC) [Ratio] 13.3 % Normal 11.6-14.6 [facility] Comment on above: Performed By: #### L 500.2500, L100.0100 ####[facility] [address] [place], [address] Hematocrit (Bld) [Volume fraction] 41.8 % Normal 40-54 [facility] Comment on above: Performed By: #### L 500.2500, L100.0100 ####[facility] [address] [place], [address] Hemoglobin (Bld) [Mass/Vol] 13.8 g/dL Normal 13.0-16.5 [facility] Comment on above: Performed By: #### L 500.2500, L100.0100 ####[facility] [address] [place], [address] IG% 0.400 Normal 0.0-0.9 [facility] Comment on above: Result Comment: IG% - Immature Granulocytes (promyelocytes, myelocytes andmetamyelocytes) > 1% indicates that a LEFT SHIFT is Present. Performed By: #### L 500.2500, L100.0100 ####[facility] [address] [place], [address] Lymphocytes/100 WBC (Bld) 17.8 % Low 19-41 [facility] Comment on above: Performed By: #### L 500.2500, L100.0100 ####[facility] [address] [place], [address] MCH (RBC) [Entitic mass] 31.9 pg Normal 27.0-32.0 [facility] Comment on above: Performed By: #### L 500.2500, L100.0100 ####[facility] [address] [place], [address] MCHC (RBC) [Mass/Vol] 33.0 g/dL Normal 32-36 [facility] Comment on above: Performed By: #### L 500.2500, L100.0100 ####[facility] [address] [place], [address] MCV (RBC) [Entitic vol] 96.5 fL High 80-94 [facility] Comment on above: Performed By: #### L 500.2500, L100.0100 ####[facility] [address] [place], [address] Monocytes/100 WBC (Bld) 7.6 % Normal 0-10 [facility] Comment on above: Performed By: #### L 500.2500, L100.0100 ####[facility] [address] [place], [address] Neutrophils/100 WBC (Bld) 64.8 % Normal 47-70 [facility] Comment on above: Performed By: #### L 500.2500, L100.0100 ####[facility] [address] [place], [address] Nucleated RBC (Bld) [#/Vol] 0 10*3/uL Normal 0-5 [facility] Comment on above: Performed By: #### L 500.2500, L100.0100 ####[facility] [address] [place], [address] Platelet mean volume (Bld) [Entitic vol] 9.7 fL Normal 6.2-12.0 [facility] Comment on above: Performed By: #### L 500.2500, L100.0100 ####[facility] [address] [place], [address] Platelets (Bld) [#/Vol] 309 10*3/uL Normal 150-450 [facility] Comment on above: Performed By: #### L 500.2500, L100.0100 ####[facility] [address] [place], [address] RBC (Bld) [#/Vol] 4.33 10*6/uL Low 4.6-6.2 [facility] Comment on above: Performed By: #### L 500.2500, L100.0100 ####[facility] [address] [place], [address] RDW SD 47.7 fl High 35.1-43.9 [facility] Comment on above: Performed By: #### L 500.2500, L100.0100 ####[facility] [address] [place], [address] WBC (Bld) [#/Vol] 5.6 10*3/uL Normal 4.4-11.0 [facility] Comment on above: Performed By: #### L 500.2500, L100.0100 ####[facility] [address] [place], [address] Consultation - Infectious Dx on 08-30-2024 Consultation - Infectious Dx Normal [facility] Basic Metabolic Profile (BMP )on 08-29-2024 BUN/CRE 24.6 RATIO High 10-20 [facility] Comment on above: Performed By: #### L 100.0100, L500.2500 ####[facility] [address] [place], [address] Calcium [Mass/Vol] 10.0 mg/dL Normal 7.6-11.0 [facility] Comment on above: Performed By: #### L 100.0100, L500.2500 ####[facility] [address] [place], [address] Chloride [Moles/Vol] 104 mmol/L Normal 98-108 [facility] Comment on above: Performed By: #### L 100.0100, L500.2500 ####[facility] [address] [place], [address] CO2 [Moles/Vol] 22.8 mmol/L Normal 21.0-32.0 [facility] Comment on above: Performed By: #### L 100.0100, L500.2500 ####[facility] [address] [place], [address] Creatinine [Mass/Vol] 1.21 mg/dL High 0.70-1.20 [facility] Comment on above: Performed By: #### L 100.0100, L500.2500 ####[facility] [address] [place], [address] ECRCL 51.03 ml/min Normal 50-250 [facility] Comment on above: Performed By: #### L 100.0100, L500.2500 ####[facility] [address] [place], [address] GAP 14 Normal 5-15 [facility] Comment on above: Performed By: #### L 100.0100, L500.2500 ####[facility] [address] [place], [address] GFR/1.73 sq M.predicted among non-blacks MDRD (S/P/Bld) [Vol rate/Area] 62 mL/min/{1.73_m2} Normal >60 [facility] Comment on above: Result Comment: mL/m in/1.73m2 CKD-EPI Creatinine Equation (2020) Performed By: #### L 100.0100, L500.2500 ####[facility] [address] [place], [address] Glucose [Mass/Vol] 91 mg/dL Normal 70-99 [facility] Comment on above: Performed By: #### L 100.0100, L500.2500 ####[facility] [address] [place], [address] Potassium [Moles/Vol] 4.1 mmol/L Normal 3.3-5.1 [facility] Comment on above: Performed By: #### L 100.0100, L500.2500 ####[facility] [address] [place], [address] Sodium [Moles/Vol] 141 mmol/L Normal 133-145 [facility] Comment on above: Performed By: #### L 100.0100, L500.2500 ####[facility] [address] [place], [address] Urea nitrogen [Mass/Vol] 30 mg/dL High 4-19 [facility] Comment on above: Performed By: #### L 100.0100, L500.2500 ####[facility] [address] [place], [address] CBC W/Diff, Automatedon - Absolute Lymph 1.17 X10 3/uL Normal 0.83-4.51 [facility] Comment on above: Performed By: #### L 100.0100, L500.2500 ####[facility] [address] [place], [address] Absolute Neut 3.1 X10 3/uL Normal 2.0-7.7 [facility] Comment on above: Performed By: #### L 100.0100, L500.2500 ####[facility] [address] [place], [address] Basophils/100 WBC (Bld) 1.3 % High 0-1 [facility] Comment on above: Performed By: #### L 100.0100, L500.2500 ####[facility] [address] [place], [address] Eosinophils/100 WBC (Bld) 8.2 % High 0-5 [facility] Comment on above: Performed By: #### L 100.0100, L500.2500 ####[facility] [address] [place], [address] Erythrocyte distribution width (RBC) [Ratio] 13.5 % Normal 11.6-14.6 [facility] Comment on above: Performed By: #### L 100.0100, L500.2500 ####[facility] [address] [place], [address] Hematocrit (Bld) [Volume fraction] 39.2 % Low 40-54 [facility] Comment on above: Performed By: #### L 100.0100, L500.2500 ####[facility] [address] [place], [address] Hemoglobin (Bld) [Mass/Vol] 12.8 g/dL Low 13.0-16.5 [facility] Comment on above: Performed By: #### L 100.0100, L500.2500 ####[facility] [address] [place], [address] IG% 0.400 Normal 0.0-0.9 [facility] Comment on above: Result Comment: IG% - Immature Granulocytes (promyelocytes, myelocytes andmetamyelocytes) > 1% indicates that a LEFT SHIFT is Present. Performed By: #### L 100.0100, L500.2500 ####[facility] [address] [place], [address] Lymphocytes/100 WBC (Bld) 22.3 % Normal 19-41 [facility] Comment on above: Performed By: #### L 100.0100, L500.2500 ####[facility] [address] [place], [address] MCH (RBC) [Entitic mass] 31.4 pg Normal 27.0-32.0 [facility] Comment on above: Performed By: #### L 100.0100, L500.2500 ####[facility] [address] [place], [address] MCHC (RBC) [Mass/Vol] 32.7 g/dL Normal 32-36 [facility] Comment on above: Performed By: #### L 100.0100, L500.2500 ####[facility] [address] [place], [address] MCV (RBC) [Entitic vol] 96.1 fL High 80-94 [facility] Comment on above: Performed By: #### L 100.0100, L500.2500 ####[facility] [address] [place], [address] Monocytes/100 WBC (Bld) 8.0 % Normal 0-10 [facility] Comment on above: Performed By: #### L 100.0100, L500.2500 ####[facility] [address] [place], [address] Neutrophils/100 WBC (Bld) 59.8 % Normal 47-70 [facility] Comment on above: Performed By: #### L 100.0100, L500.2500 ####[facility] [address] [place], [address] Nucleated RBC (Bld) [#/Vol] 0 10*3/uL Normal 0-5 [facility] Comment on above: Performed By: #### L 100.0100, L500.2500 ####[facility] [address] [place], [address] Platelet mean volume (Bld) [Entitic vol] 9.8 fL Normal 6.2-12.0 [facility] Comment on above: Performed By: #### L 100.0100, L500.2500 ####[facility] [address] [place], [address] Platelets (Bld) [#/Vol] 277 10*3/uL Normal 150-450 [facility] Comment on above: Performed By: #### L 100.0100, L500.2500 ####[facility] [address] [place], [address] RBC (Bld) [#/Vol] 4.08 10*6/uL Low 4.6-6.2 [facility] Comment on above: Performed By: #### L 100.0100, L500.2500 ####[facility] [address] [place], [address] RDW SD 47.8 fl High 35.1-43.9 [facility] Comment on above: Performed By: #### L 100.0100, L500.2500 ####[facility] [address] [place], [address] WBC (Bld) [#/Vol] 5.3 10*3/uL Normal 4.4-11.0 [facility] Comment on above: Performed By: #### L 100.0100, L500.2500 ####[facility] [address] [place], [address] Basic Metabolic Profile (BMP )on 08-28-2024 BUN/CRE 21.6 RATIO High 10-20 [facility] Comment on above: Performed By: #### L 100.0100, L500.2500 ####[facility] [address] [place], [address] Calcium [Mass/Vol] 9.8 mg/dL Normal 7.6-11.0 [facility] Comment on above: Performed By: #### L 100.0100, L500.2500 ####[facility] [address] [place], [address] Chloride [Moles/Vol] 105 mmol/L Normal 98-108 [facility] Comment on above: Performed By: #### L 100.0100, L500.2500 ####[facility] [address] [place], [address] CO2 [Moles/Vol] 21.9 mmol/L Normal 21.0-32.0 [facility] Comment on above: Performed By: #### L 100.0100, L500.2500 ####[facility] [address] [place], [address] Creatinine [Mass/Vol] 1.14 mg/dL Normal 0.70-1.20 [facility] Comment on above: Performed By: #### L 100.0100, L500.2500 ####[facility] [address] [place], [address] ECRCL 54.17 ml/min Normal 50-250 [facility] Comment on above: Performed By: #### L 100.0100, L500.2500 ####[facility] [address] [place], [address] GAP 13 Normal 5-15 [facility] Comment on above: Performed By: #### L 100.0100, L500.2500 ####[facility] [address] [place], [address] GFR/1.73 sq M.predicted among non-blacks MDRD (S/P/Bld) [Vol rate/Area] 67 mL/min/{1.73_m2} Normal >60 [facility] Comment on above: Result Comment: mL/m in/1.73m2 CKD-EPI Creatinine Equation (2020) Performed By: #### L 100.0100, L500.2500 ####[facility] [address] [place], [address] Glucose [Mass/Vol] 93 mg/dL Normal 70-99 [facility] Comment on above: Performed By: #### L 100.0100, L500.2500 ####[facility] [address] [place], [address] Potassium [Moles/Vol] 3.8 mmol/L Normal 3.3-5.1 [facility] Comment on above: Performed By: #### L 100.0100, L500.2500 ####[facility] [address] [place], [address] Sodium [Moles/Vol] 140 mmol/L Normal 133-145 [facility] Comment on above: Performed By: #### L 100.0100, L500.2500 ####[facility] [address] [place], [address] Urea nitrogen [Mass/Vol] 25 mg/dL High 4-19 [facility] Comment on above: Performed By: #### L 100.0100, L500.2500 ####[facility] [address] [place], [address] CBC W/Diff, Automatedon 08-17 Absolute Lymph 1.06 X10 3/uL Normal 0.83-4.51 [facility] Comment on above: Performed By: #### L 100.0100, L500.2500 ####[facility] [address] [place], [address] Absolute Neut 2.5 X10 3/uL Normal 2.0-7.7 [facility] Comment on above: Performed By: #### L 100.0100, L500.2500 ####[facility] [address] [place], [address] Basophils/100 WBC (Bld) 1.8 % High 0-1 [facility] Comment on above: Performed By: #### L 100.0100, L500.2500 ####[facility] [address] [place], [address] Eosinophils/100 WBC (Bld) 7.5 % High 0-5 [facility] Comment on above: Performed By: #### L 100.0100, L500.2500 ####[facility] [address] [place], [address] Erythrocyte distribution width (RBC) [Ratio] 13.3 % Normal 11.6-14.6 [facility] Comment on above: Performed By: #### L 100.0100, L500.2500 ####[facility] [address] [place], [address] Hematocrit (Bld) [Volume fraction] 39.0 % Low 40-54 [facility] Comment on above: Performed By: #### L 100.0100, L500.2500 ####[facility] [address] [place], [address] Hemoglobin (Bld) [Mass/Vol] 12.8 g/dL Low 13.0-16.5 [facility] Comment on above: Performed By: #### L 100.0100, L500.2500 ####[facility] [address] [place], [address] IG% 0.400 Normal 0.0-0.9 [facility] Comment on above: Result Comment: IG% - Immature Granulocytes (promyelocytes, myelocytes andmetamyelocytes) > 1% indicates that a LEFT SHIFT is Present. Performed By: #### L 100.0100, L500.2500 ####[facility] [address] [place], [address] Lymphocytes/100 WBC (Bld) 23.4 % Normal 19-41 [facility] Comment on above: Performed By: #### L 100.0100, L500.2500 ####[facility] [address] [place], [address] MCH (RBC) [Entitic mass] 31.1 pg Normal 27.0-32.0 [facility] Comment on above: Performed By: #### L 100.0100, L500.2500 ####[facility] [address] [place], [address] MCHC (RBC) [Mass/Vol] 32.8 g/dL Normal 32-36 [facility] Comment on above: Performed By: #### L 100.0100, L500.2500 ####[facility] [address] [place], [address] MCV (RBC) [Entitic vol] 94.7 fL High 80-94 [facility] Comment on above: Performed By: #### L 100.0100, L500.2500 ####[facility] [address] [place], [address] Monocytes/100 WBC (Bld) 11.3 % High 0-10 [facility] Comment on above: Performed By: #### L 100.0100, L500.2500 ####[facility] [address] [place], [address] Neutrophils/100 WBC (Bld) 55.6 % Normal 47-70 [facility] Comment on above: Performed By: #### L 100.0100, L500.2500 ####[facility] [address] [place], [address] Nucleated RBC (Bld) [#/Vol] 0 10*3/uL Normal 0-5 [facility] Comment on above: Performed By: #### L 100.0100, L500.2500 ####[facility] [address] [place], [address] Platelet mean volume (Bld) [Entitic vol] 9.8 fL Normal 6.2-12.0 [facility] Comment on above: Performed By: #### L 100.0100, L500.2500 ####[facility] [address] [place], [address] Platelets (Bld) [#/Vol] 279 10*3/uL Normal 150-450 [facility] Comment on above: Performed By: #### L 100.0100, L500.2500 ####[facility] [address] [place], [address] RBC (Bld) [#/Vol] 4.12 10*6/uL Low 4.6-6.2 [facility] Comment on above: Performed By: #### L 100.0100, L500.2500 ####[facility] [address] [place], [address] RDW SD 46.1 fl High 35.1-43.9 [facility] Comment on above: Performed By: #### L 100.0100, L500.2500 ####[facility] [address] [place], [address] WBC (Bld) [#/Vol] 4.5 10*3/uL Normal 4.4-11.0 [facility] Comment on above: Performed By: #### L 100.0100, L500.2500 ####[facility] [address] [place], [address] Basic Metabolic Profile (BMP )on 08-27-2024 BUN/CRE 17.2 RATIO Normal 10-20 [facility] Comment on above: Performed By: #### L 500.2500, L100.0100 ####[facility] [address] [place], [address] Calcium [Mass/Vol] 9.5 mg/dL Normal 7.6-11.0 [facility] Comment on above: Performed By: #### L 500.2500, L100.0100 ####[facility] [address] [place], [address] Chloride [Moles/Vol] 104 mmol/L Normal 98-108 [facility] Comment on above: Performed By: #### L 500.2500, L100.0100 ####[facility] [address] [place], [address] CO2 [Moles/Vol] 19.9 mmol/L Low 21.0-32.0 [facility] Comment on above: Performed By: #### L 500.2500, L100.0100 ####[facility] [address] [place], [address] Creatinine [Mass/Vol] 1.18 mg/dL Normal 0.70-1.20 [facility] Comment on above: Performed By: #### L 500.2500, L100.0100 ####[facility] [address] [place], [address] ECRCL 52.25 ml/min Normal 50-250 [facility] Comment on above: Performed By: #### L 500.2500, L100.0100 ####[facility] [address] [place], [address] GAP 14 Normal 5-15 [facility] Comment on above: Performed By: #### L 500.2500, L100.0100 ####[facility] [address] [place], [address] GFR/1.73 sq M.predicted among non-blacks MDRD (S/P/Bld) [Vol rate/Area] 64 mL/min/{1.73_m2} Normal >60 [facility] Comment on above: Result Comment: mL/m in/1.73m2 CKD-EPI Creatinine Equation (2020) Performed By: #### L 500.2500, L100.0100 ####[facility] [address] [place], [address] Glucose [Mass/Vol] 97 mg/dL Normal 70-99 [facility] Comment on above: Performed By: #### L 500.2500, L100.0100 ####[facility] [address] [place], [address] Potassium [Moles/Vol] 3.4 mmol/L Normal 3.3-5.1 [facility] Comment on above: Performed By: #### L 500.2500, L100.0100 ####[facility] [address] [place], [address] Sodium [Moles/Vol] 139 mmol/L Normal 133-145 [facility] Comment on above: Performed By: #### L 500.2500, L100.0100 ####[facility] [address] [place], [address] Urea nitrogen [Mass/Vol] 20 mg/dL High 4-19 [facility] Comment on above: Performed By: #### L 500.2500, L100.0100 ####[facility] [address] [place], [address] Bilirubin Test strip Ql (U)O rdered By: Celia Toribio on 08-27-2024 Bilirubin Ql (U) Negative Negative [facility] CBC W/Diff, Automatedon 08-17 Absolute Lymph 0.95 X10 3/uL Normal 0.83-4.51 [facility] Comment on above: Performed By: #### L 500.2500, L100.0100 ####[facility] [address] [place], [address] Absolute Neut 2.3 X10 3/uL Normal 2.0-7.7 [facility] Comment on above: Performed By: #### L 500.2500, L100.0100 ####[facility] [address] [place], [address] Basophils/100 WBC (Bld) 1.2 % High 0-1 [facility] Comment on above: Performed By: #### L 500.2500, L100.0100 ####[facility] [address] [place], [address] Eosinophils/100 WBC (Bld) 6.3 % High 0-5 [facility] Comment on above: Performed By: #### L 500.2500, L100.0100 ####[facility] [address] [place], [address] Erythrocyte distribution width (RBC) [Ratio] 13.3 % Normal 11.6-14.6 [facility] Comment on above: Performed By: #### L 500.2500, L100.0100 ####[facility] [address] [place], [address] Hematocrit (Bld) [Volume fraction] 38.4 % Low 40-54 [facility] Comment on above: Performed By: #### L 500.2500, L100.0100 ####[facility] [address] [place], [address] Hemoglobin (Bld) [Mass/Vol] 12.8 g/dL Low 13.0-16.5 [facility] Comment on above: Performed By: #### L 500.2500, L100.0100 ####[facility] [address] [place], [address] IG% 0.200 Normal 0.0-0.9 [facility] Comment on above: Result Comment: IG% - Immature Granulocytes (promyelocytes, myelocytes andmetamyelocytes) > 1% indicates that a LEFT SHIFT is Present. Performed By: #### L 500.2500, L100.0100 ####[facility] [address] [place], [address] Lymphocytes/100 WBC (Bld) 23.0 % Normal 19-41 [facility] Comment on above: Performed By: #### L 500.2500, L100.0100 ####[facility] [address] [place], [address] MCH (RBC) [Entitic mass] 31.4 pg Normal 27.0-32.0 [facility] Comment on above: Performed By: #### L 500.2500, L100.0100 ####[facility] [address] [place], [address] MCHC (RBC) [Mass/Vol] 33.3 g/dL Normal 32-36 [facility] Comment on above: Performed By: #### L 500.2500, L100.0100 ####[facility] [address] [place], [address] MCV (RBC) [Entitic vol] 94.3 fL High 80-94 [facility] Comment on above: Performed By: #### L 500.2500, L100.0100 ####[facility] [address] [place], [address] Monocytes/100 WBC (Bld) 13.1 % High 0-10 [facility] Comment on above: Performed By: #### L 500.2500, L100.0100 ####[facility] [address] [place], [address] Neutrophils/100 WBC (Bld) 56.2 % Normal 47-70 [facility] Comment on above: Performed By: #### L 500.2500, L100.0100 ####[facility] [address] [place], [address] Nucleated RBC (Bld) [#/Vol] 0 10*3/uL Normal 0-5 [facility] Comment on above: Performed By: #### L 500.2500, L100.0100 ####[facility] [address] [place], [address] Platelet mean volume (Bld) [Entitic vol] 10.0 fL Normal 6.2-12.0 [facility] Comment on above: Performed By: #### L 500.2500, L100.0100 ####[facility] [address] [place], [address] Platelets (Bld) [#/Vol] 253 10*3/uL Normal 150-450 [facility] Comment on above: Performed By: #### L 500.2500, L100.0100 ####[facility] [address] [place], [address] RBC (Bld) [#/Vol] 4.07 10*6/uL Low 4.6-6.2 [facility] Comment on above: Performed By: #### L 500.2500, L100.0100 ####[facility] [address] [place], [address] RDW SD 46.1 fl High 35.1-43.9 [facility] Comment on above: Performed By: #### L 500.2500, L100.0100 ####[facility] [address] [place], [address] WBC (Bld) [#/Vol] 4.1 10*3/uL Low 4.4-11.0 [facility] Comment on above: Performed By: #### L 500.2500, L100.0100 ####[facility] [address] [place], [address] CBC-Complete Blood Cnt No Di abdulkadiron 08-27-2024 Erythrocyte distribution width (RBC) [Ratio] 13.4 % Normal 11.6-14.6 [facility] Comment on above: Performed By: #### L 100.0500 ####[facility] [address] [place], [address] Hematocrit (Bld) [Volume fraction] 40.6 % Normal 40-54 [facility] Comment on above: Performed By: #### L 100.0500 ####[facility] [address] [place], [address] Hemoglobin (Bld) [Mass/Vol] 13.5 g/dL Normal 13.0-16.5 [facility] Comment on above: Performed By: #### L 100.0500 ####[facility] [address] [place], [address] MCH (RBC) [Entitic mass] 31.5 pg Normal 27.0-32.0 [facility] Comment on above: Performed By: #### L 100.0500 ####[facility] [address] [place], [address] MCHC (RBC) [Mass/Vol] 33.3 g/dL Normal 32-36 [facility] Comment on above: Performed By: #### L 100.0500 ####[facility] [address] [place], [address] MCV (RBC) [Entitic vol] 94.6 fL High 80-94 [facility] Comment on above: Performed By: #### L 100.0500 ####[facility] [address] [place], [address] Platelet mean volume (Bld) [Entitic vol] 9.8 fL Normal 6.2-12.0 [facility] Comment on above: Performed By: #### L 100.0500 ####[facility] [address] [place], [address] Platelets (Bld) [#/Vol] 283 10*3/uL Normal 150-450 [facility] Comment on above: Performed By: #### L 100.0500 ####[facility] [address] [place], [address] RBC (Bld) [#/Vol] 4.29 10*6/uL Low 4.6-6.2 [facility] Comment on above: Performed By: #### L 100.0500 ####[facility] [address] [place], [address] RDW SD 46.0 fl High 35.1-43.9 [facility] Comment on above: Performed By: #### L 100.0500 ####[facility] [address] [place], [address] WBC (Bld) [#/Vol] 4.9 10*3/uL Normal 4.4-11.0 [facility] Comment on above: Performed By: #### L 100.0500 ####[facility] [address] [place], [address] Epithelial cells.squamous LM Ql (Urine sed)Ordered By: Celia Toribio on 08-27-2024 Epithelial cells.squamous LM.HPF (Urine sed) [#/Area] 0 /[HPF] 0-5 [facility] Glucose Ql (U)Ordered By: Yariel Toribio on 08-27-2024 Urine Glucose (UA) Normal mg/dl Normal [facility] Ketones Test strip Ql (U)Ord ered By: Celia Toribio on 08-27-2024 Ketones Ql (U) Negative Negative [facility] Microscopic analysis of urin e for red blood cells (RBC)Ordered By: Celia Toribio on 08-27-2024 Microscopic analysis of urine for red blood cells (RBC) 0 SEEN /hpf 0-5 [facility] Urine RBC 0 SEEN /hpf 0-5 [facility] Mucus LM Ql (Urine sed)Order ed By: Celia Toribio on 08-27-2024 Mucus Ql (Urine sed) 0 SEEN /hpf [facility] Nitrite Test strip Ql (U)Ord ered By: Celia Toribio on 08-27-2024 Nitrite Ql (U) Positive High Negative [facility] Protein Test strip Ql (U)Ord ered By: Celia Toribio on 08-27-2024 Protein Ql (U) 30 mg/dl High Negative [facility] Squamous epithelial cells de tection in urine sediment by light microscopyOrdered By: Celia Toribio on 08-27-2024 Epithelial cells.squamous LM Ql (Urine sed) 0-5 SEEN /hpf 0-5 [facility] Urinalysis, Completeon 08-27 BACTERIA 4+ /hpf Normal None Seen [facility] Comment on above: Order Comment: CLEAN CATCH Performed By: #### M 100.2200, L400.0001 ####[facility] [address] [place], [address] EPI,SQUAMOUS 0-5 SEEN Normal 0-5 [facility] Comment on above: Order Comment: CLEAN CATCH Performed By: #### M 100.2200, L400.0001 ####[facility] [address] [place], [address] RBC 0 SEEN Normal 0-5 [facility] Comment on above: Order Comment: CLEAN CATCH Performed By: #### M 100.2200, L400.0001 ####[facility] [address] [place], [address] WBC 25-50 SEEN Normal 0-5 [facility] Comment on above: Order Comment: CLEAN CATCH Performed By: #### M 100.2200, L400.0001 ####[facility] [address] [place], [address] Mucus Ql (Urine sed) 0 SEEN Normal [facility] Comment on above: Order Comment: CLEAN CATCH Performed By: #### M 100.2200, L400.0001 ####[facility] [address] [place], [address] Urine blood detectionOrdered By: Celia Toribio on 08-27-2024 Urine Occult Blood Negative Negative [facility] Urine clarityOrdered By: Allyson Toribio on 08-27-2024 Clarity (U) Clear Clear [facility] Urine color determinationOrd ered By: Celia Toribio on 08-27-2024 Color (U) Yellow Yellow [facility] Urine cultureOrdered By: Allyson Toribio on 08-27-2024 Bacteria identified Cx Nom (U) ESBL Escherichia coli Abnormal [facility] Urine glucose detectionOrder ed By: Celia Toribio on 08-27-2024 Glucose Ql (U) Normal mg/dl Normal [facility] Urine leukocyte esterase det ection by dipstickOrdered By: Celia Toribio on 08-27-2024 Leukocyte esterase Test strip Ql (U) 500 /ul High Negative [facility] Urine pHOrdered By: Celia rapp on 08-27-2024 pH (U) 6.0 [pH] 5.0 - 8.0 [facility] Urine sediment bacteria coun t by microscopy (number/high power field)Ordered By: Celia Toribio on 08-27-2024 Bacteria LM.HPF (Urine sed) [#/Area] 4 /[HPF] None Seen [facility] Urine specific gravity measu rementOrdered By: Celia Toribio on 08-27-2024 Specific gravity (U) [Rel density] 1.015 1.002-1.030 [facility] Urine urobilinogen measureme ntOrdered By: Celia Toribio on 08-27-2024 Urobilinogen Ql (U) Normal mg/dl Normal [facility] Urobilinogen Ql (U)Ordered B y: Celia Toribio on 08-27-2024 Urine Urobilinogen Normal mg/dl Normal [facility] White blood cell countOrdere d By: Celia Toribio on 08-27-2024 Urine WBC 25-50 SEEN /hpf 0-5 [facility] White blood cell count 25-50 SEEN /hpf 0-5 [facility] Bilirubin, totalOrdered By: Lisha Talamantes on 08-26-2024 Bilirubin [Mass/Vol] 0.25 mg/dL 0.00-1.30 [facility] CBC W/Diff, Automatedon 03-1 0-2025 Absolute Lymph 0.94 X10 3/uL Normal 0.83-4.51 [facility] Comment on above: Performed By: #### L 500.4050, L501.5200, L100.0100, L501.2300 ####[facility] [address] [place], [address] Absolute Neut 2.9 X10 3/uL Normal 2.0-7.7 [facility] Comment on above: Performed By: #### L 500.4050, L501.5200, L100.0100, L501.2300 ####[facility] [address] [place], [address] Basophils/100 WBC (Bld) 1.1 % High 0-1 [facility] Comment on above: Performed By: #### L 500.4050, L501.5200, L100.0100, L501.2300 ####[facility] [address] [place], [address] Eosinophils/100 WBC (Bld) 3.4 % Normal 0-5 [facility] Comment on above: Performed By: #### L 500.4050, L501.5200, L100.0100, L501.2300 ####[facility] [address] [place], [address] Erythrocyte distribution width (RBC) [Ratio] 13.3 % Normal 11.6-14.6 [facility] Comment on above: Performed By: #### L 500.4050, L501.5200, L100.0100, L501.2300 ####[facility] [address] [place], [address] Hematocrit (Bld) [Volume fraction] 40.6 % Normal 40-54 [facility] Comment on above: Performed By: #### L 500.4050, L501.5200, L100.0100, L501.2300 ####[facility] [address] [place], [address] Hemoglobin (Bld) [Mass/Vol] 13.3 g/dL Normal 13.0-16.5 [facility] Comment on above: Performed By: #### L 500.4050, L501.5200, L100.0100, L501.2300 ####[facility] [address] [place], [address] IG% 0.200 Normal 0.0-0.9 [facility] Comment on above: Result Comment: IG% - Immature Granulocytes (promyelocytes, myelocytes andmetamyelocytes) > 1% indicates that a LEFT SHIFT is Present. Performed By: #### L 500.4050, L501.5200, L100.0100, L501.2300 ####[facility] [address] [place], [address] Lymphocytes/100 WBC (Bld) 19.8 % Normal 19-41 [facility] Comment on above: Performed By: #### L 500.4050, L501.5200, L100.0100, L501.2300 ####[facility] [address] [place], [address] MCH (RBC) [Entitic mass] 31.2 pg Normal 27.0-32.0 [facility] Comment on above: Performed By: #### L 500.4050, L501.5200, L100.0100, L501.2300 ####[facility] [address] [place], [address] MCHC (RBC) [Mass/Vol] 32.8 g/dL Normal 32-36 [facility] Comment on above: Performed By: #### L 500.4050, L501.5200, L100.0100, L501.2300 ####[facility] [address] [place], [address] MCV (RBC) [Entitic vol] 95.3 fL High 80-94 [facility] Comment on above: Performed By: #### L 500.4050, L501.5200, L100.0100, L501.2300 ####[facility] [address] [place], [address] Monocytes/100 WBC (Bld) 15.2 % High 0-10 [facility] Comment on above: Performed By: #### L 500.4050, L501.5200, L100.0100, L501.2300 ####[facility] [address] [place], [address] Neutrophils/100 WBC (Bld) 60.3 % Normal 47-70 [facility] Comment on above: Performed By: #### L 500.4050, L501.5200, L100.0100, L501.2300 ####[facility] [address] [place], [address] Nucleated RBC (Bld) [#/Vol] 0 10*3/uL Normal 0-5 [facility] Comment on above: Performed By: #### L 500.4050, L501.5200, L100.0100, L501.2300 ####[facility] [address] [place], [address] Platelet mean volume (Bld) [Entitic vol] 9.9 fL Normal 6.2-12.0 [facility] Comment on above: Performed By: #### L 500.4050, L501.5200, L100.0100, L501.2300 ####[facility] [address] [place], [address] Platelets (Bld) [#/Vol] 242 10*3/uL Normal 150-450 [facility] Comment on above: Performed By: #### L 500.4050, L501.5200, L100.0100, L501.2300 ####[facility] [address] [place], [address] RBC (Bld) [#/Vol] 4.26 10*6/uL Low 4.6-6.2 [facility] Comment on above: Performed By: #### L 500.4050, L501.5200, L100.0100, L501.2300 ####[facility] [address] [place], [address] RDW SD 46.7 fl High 35.1-43.9 [facility] Comment on above: Performed By: #### L 500.4050, L501.5200, L100.0100, L501.2300 ####[facility] [address] [place], [address] WBC (Bld) [#/Vol] 4.7 10*3/uL Normal 4.4-11.0 [facility] Comment on above: Performed By: #### L 500.4050, L501.5200, L100.0100, L501.2300 ####[facility] [address] [place], [address] COVID 19 AG RAPID (SEYMOUR Dixon)on 08-26-2024 SARS-CoV-2 (COVID-19) RNA ALEENA+probe Ql (Unsp spec) Normal [facility] Comment on above: Performed By: #### M 100.505 ####[facility] [address] [place], [address] COVID-19 virus antigen assay Ordered By: Celia Toribio on 08-26-2024 SARS-CoV-2 (COVID-19) Ag IA.rapid Ql (Resp) [facility] Comprehensive Metabolic Prof ilon 08-26-2024 Albumin [Mass/Vol] 4.0 g/dL Normal 3.4-4.8 [facility] Comment on above: Performed By: #### L 500.4050, L501.5200, L100.0100, L501.2300 ####[facility] [address] [place], [address] Albumin/Globulin [Mass ratio] 1.4 {ratio} Normal 0.9-2.4 [facility] Comment on above: Performed By: #### L 500.4050, L501.5200, L100.0100, L501.2300 ####[facility] [address] [place], [address] ALK PHOS 67 U/L Normal 40-129 [facility] Comment on above: Performed By: #### L 500.4050, L501.5200, L100.0100, L501.2300 ####[facility] [address] [place], [address] ALT [Catalytic activity/Vol] 28 U/L Normal <=46 [facility] Comment on above: Performed By: #### L 500.4050, L501.5200, L100.0100, L501.2300 ####[facility] [address] [place], [address] AST [Catalytic activity/Vol] 23 U/L Normal <=37 [facility] Comment on above: Performed By: #### L 500.4050, L501.5200, L100.0100, L501.2300 ####[facility] [address] [place], [address] Bilirubin [Mass/Vol] 0.25 mg/dL Normal 0.00-1.30 [facility] Comment on above: Performed By: #### L 500.4050, L501.5200, L100.0100, L501.2300 ####[facility] [address] [place], [address] BUN/CRE 21.8 RATIO High 10-20 [facility] Comment on above: Performed By: #### L 500.4050, L501.5200, L100.0100, L501.2300 ####[facility] [address] [place], [address] Calcium [Mass/Vol] 9.4 mg/dL Normal 7.6-11.0 [facility] Comment on above: Performed By: #### L 500.4050, L501.5200, L100.0100, L501.2300 ####[facility] [address] [place], [address] Chloride [Moles/Vol] 105 mmol/L Normal 98-108 [facility] Comment on above: Performed By: #### L 500.4050, L501.5200, L100.0100, L501.2300 ####[facility] [address] [place], [address] CO2 [Moles/Vol] 17.6 mmol/L Low 21.0-32.0 [facility] Comment on above: Performed By: #### L 500.4050, L501.5200, L100.0100, L501.2300 ####[facility] [address] [place], [address] Creatinine [Mass/Vol] 1.04 mg/dL Normal 0.70-1.20 [facility] Comment on above: Performed By: #### L 500.4050, L501.5200, L100.0100, L501.2300 ####[facility] [address] [place], [address] ECRCL 58.77 ml/min Normal 50-250 [facility] Comment on above: Performed By: #### L 500.4050, L501.5200, L100.0100, L501.2300 ####[facility] [address] [place], [address] GAP 16 High 5-15 [facility] Comment on above: Performed By: #### L 500.4050, L501.5200, L100.0100, L501.2300 ####[facility] [address] [place], [address] GFR/1.73 sq M.predicted among non-blacks MDRD (S/P/Bld) [Vol rate/Area] 75 mL/min/{1.73_m2} Normal >60 [facility] Comment on above: Result Comment: mL/m in/1.73m2 CKD-EPI Creatinine Equation (2020) Performed By: #### L 500.4050, L501.5200, L100.0100, L501.2300 ####[facility] [address] [place], [address] Globulin (S) [Mass/Vol] 2.9 g/dL Normal 2.2-4.2 [facility] Comment on above: Performed By: #### L 500.4050, L501.5200, L100.0100, L501.2300 ####[facility] [address] [place], [address] Glucose [Mass/Vol] 88 mg/dL Normal 70-99 [facility] Comment on above: Performed By: #### L 500.4050, L501.5200, L100.0100, L501.2300 ####[facility] [address] [place], [address] Potassium [Moles/Vol] 3.6 mmol/L Normal 3.3-5.1 [facility] Comment on above: Performed By: #### L 500.4050, L501.5200, L100.0100, L501.2300 ####[facility] [address] [place], [address] Sodium [Moles/Vol] 139 mmol/L Normal 133-145 [facility] Comment on above: Performed By: #### L 500.4050, L501.5200, L100.0100, L501.2300 ####[facility] [address] [place], [address] T PROT 6.9 g/dL Normal 5.9-8.4 [facility] Comment on above: Performed By: #### L 500.4050, L501.5200, L100.0100, L501.2300 ####[facility] [address] [place], [address] Urea nitrogen [Mass/Vol] 23 mg/dL High 4-19 [facility] Comment on above: Performed By: #### L 500.4050, L501.5200, L100.0100, L501.2300 ####[facility] [address] [place], [address] Laboratory - Chemistry and C hemistry - challengeOrdered By: Lisha Talamantes on 08-26-2024 AST [Catalytic activity/Vol] 23 U/L <38 [facility] Lactic Acidon 08-26-2024 Lactate [Moles/Vol] 1.1 mmol/L Normal 0.0-2.0 [facility] Comment on above: Order Comment: Y Performed By: #### L 503.6005 ####[facility] [address] [place], [address] Lactic acid measurementOrder ed By: Celia Toribio on 08-26-2024 Lactate [Moles/Vol] 1.1 mmol/L 0.0-2.0 [facility] Magnesiumon 08-26-2024 Magnesium [Mass/Vol] 1.9 mg/dL Normal 1.5-2.2 [facility] Comment on above: Performed By: #### L 500.4050, L501.5200, L100.0100, L501.2300 ####[facility] [address] [place], [place], [address] Magnesium (Unsp spec) [Mass/ Vol]Ordered By: Lisha Talamantes on 08-26-2024 Magnesium [Mass/Vol] 1.9 mg/dL 1.5-2.2 [facility] Magnesium measurement (mass/ volume)Ordered By: Lisha Talamantes on 08-26-2024 Magnesium (Unsp spec) [Mass/Vol] 1.9 mg/dL 1.5-2.2 [facility] No Panel InformationOrdered By: Lisha Talamantes on 08-26-2024 23 U/L <38 [facility] Phosphoruson 08-26-2024 Phosphate [Mass/Vol] 3.1 mg/dL Normal 2.7-4.5 [facility] Comment on above: Performed By: #### L 500.4050, L501.5200, L100.0100, L501.2300 ####[facility] [address] [place], [place], [address] RESPIRATORY PANEL MOLECULARo n 08-26-2024 RP PANEL Normal [facility] Comment on above: Performed By: #### M 100.638 ####[facility] [address] [place], [place], [address] Respiratory pathogens DNA an d RNA panel ALEENA+probe (Resp)Ordered By: Celia Toribio on 08-26-2024 Respiratory Panel (PCR) [facility] Respiratory pathogens detect ion panel by molecular detection methodOrdered By: Celia Toribio on 08-26-2024 Respiratory pathogens DNA and RNA panel ALEENA+probe (Resp) [facility] SARS-CoV-2 (COVID-19) Ag IA. rapid Ql (Resp)Ordered By: Celia Toribio on 08-26-2024 SARS-CoV-2 Antigen (Rapid) [facility] Serum globulin measurementOr dered By: Lisha Talamantes on 08-26-2024 Globulin (S) [Mass/Vol] 2.9 g/dL 2.2-4.2 [facility] Serum or plasma alanine saul otransferase (ALT) measurementOrdered By: Lisha Talamantes on 08-26-2024 ALT [Catalytic activity/Vol] 28 U/L <47 [facility] Serum or plasma albumin luis urement (mass/volume)Ordered By: Lisha Talamantes on 08-26-2024 Albumin [Mass/Vol] 4.0 g/dL 3.4-4.8 [facility] Serum or plasma albumin/glob ulin mass ratioOrdered By: Lisha Talamantes on 08-26-2024 Albumin/Globulin [Mass ratio] 1.4 {ratio} 0.9-2.4 [facility] Serum or plasma alkaline kathleen sphatase measurementOrdered By: Lisha Talamantes on 08-26-2024 ALP [Catalytic activity/Vol] 67 U/L 40-129 [facility] Serum phosphorus measurement Ordered By: Lisha Talamantes on 08-26-2024 Phosphorus Level 3.1 mg/dL 2.7-4.5 [facility] Total proteinOrdered By: Ying Talamantes on 08-26-2024 Protein [Mass/Vol] 6.9 g/dL 5.9-8.4 [facility] Absolute neutrophil countOrd ered By: Jaden Jauregui on 08-25-2024 Neutrophils (Bld) [#/Vol] 4.6 10*3/uL 2.0-7.7 [facility] Anion gap in Serum or Plasma Ordered By: Jaden Jauregui on 08-25-2024 Anion gap [Moles/Vol] 13 mmol/L 5-15 [facility] BUN/creatinine ratioOrdered By: Jaden Jauregui on 08-25-2024 Urea nitrogen/Creatinine [Mass ratio] 21.4 mg/mg High 10-20 [facility] Basophil percentageOrdered B y: Jaden Jauregui on 08-25-2024 Basophils/100 WBC (Bld) 0.8 % 0-1 [facility] Bilirubin, totalOrdered By: Jaden Jauregui on 08-25-2024 Bilirubin [Mass/Vol] 0.22 mg/dL 0.00-1.30 [facility] CBC W/Diff, Automatedon Absolute Lymph 0.61 X10 3/uL Low 0.83-4.51 [facility] Comment on above: Performed By: #### L 500.4050, L100.0100 ####[facility] [address] [place], [address] Absolute Neut 4.6 X10 3/uL Normal 2.0-7.7 [facility] Comment on above: Performed By: #### L 500.4050, L100.0100 ####[facility] [address] [place], [address] Basophils/100 WBC (Bld) 0.8 % Normal 0-1 [facility] Comment on above: Performed By: #### L 500.4050, L100.0100 ####[facility] [address] [place], [address] Eosinophils/100 WBC (Bld) 0.3 % Normal 0-5 [facility] Comment on above: Performed By: #### L 500.4050, L100.0100 ####[facility] [address] [place], [address] Erythrocyte distribution width (RBC) [Ratio] 13.2 % Normal 11.6-14.6 [facility] Comment on above: Performed By: #### L 500.4050, L100.0100 ####[facility] [address] [place], [address] Hematocrit (Bld) [Volume fraction] 43.3 % Normal 40-54 [facility] Comment on above: Performed By: #### L 500.4050, L100.0100 ####[facility] [address] [place], [address] Hemoglobin (Bld) [Mass/Vol] 14.2 g/dL Normal 13.0-16.5 [facility] Comment on above: Performed By: #### L 500.4050, L100.0100 ####[facility] [address] [place], [address] IG% 0.300 Normal 0.0-0.9 [facility] Comment on above: Result Comment: IG% - Immature Granulocytes (promyelocytes, myelocytes andmetamyelocytes) > 1% indicates that a LEFT SHIFT is Present. Performed By: #### L 500.4050, L100.0100 ####[facility] [address] [place], [address] Lymphocytes/100 WBC (Bld) 10.3 % Low 19-41 [facility] Comment on above: Performed By: #### L 500.4050, L100.0100 ####[facility] [address] [place], [address] MCH (RBC) [Entitic mass] 31.4 pg Normal 27.0-32.0 [facility] Comment on above: Performed By: #### L 500.4050, L100.0100 ####[facility] [address] [place], [address] MCHC (RBC) [Mass/Vol] 32.8 g/dL Normal 32-36 [facility] Comment on above: Performed By: #### L 500.4050, L100.0100 ####[facility] [address] [place], [address] MCV (RBC) [Entitic vol] 95.8 fL High 80-94 [facility] Comment on above: Performed By: #### L 500.4050, L100.0100 ####[facility] [address] [place], [address] Monocytes/100 WBC (Bld) 9.9 % Normal 0-10 [facility] Comment on above: Performed By: #### L 500.4050, L100.0100 ####[facility] [address] [place], [address] Neutrophils/100 WBC (Bld) 78.4 % High 47-70 [facility] Comment on above: Performed By: #### L 500.4050, L100.0100 ####[facility] [address] [place], [address] Nucleated RBC (Bld) [#/Vol] 0 10*3/uL Normal 0-5 [facility] Comment on above: Performed By: #### L 500.4050, L100.0100 ####[facility] [address] [place], [address] Platelet mean volume (Bld) [Entitic vol] 9.5 fL Normal 6.2-12.0 [facility] Comment on above: Performed By: #### L 500.4050, L100.0100 ####[facility] [address] [place], [address] Platelets (Bld) [#/Vol] 245 10*3/uL Normal 150-450 [facility] Comment on above: Performed By: #### L 500.4050, L100.0100 ####[facility] [address] [place], [address] RBC (Bld) [#/Vol] 4.52 10*6/uL Low 4.6-6.2 [facility] Comment on above: Performed By: #### L 500.4050, L100.0100 ####[facility] [id number] [place], [address] RDW SD 46.6 fl High 35.1-43.9 [facility] Comment on above: Performed By: #### L 500.4050, L100.0100 ####[facility] [id number] [place], [address] WBC (Bld) [#/Vol] 5.9 10*3/uL Normal 4.4-11.0 [facility] Comment on above: Performed By: #### L 500.4050, L100.0100 ####[facility] [facility] [address] [place], [address] Carbon dioxide, total [Moles /volume] in Central venous bloodOrdered By: Jaden Jauregui on 08-25-2024 CO2 [Moles/Vol] 24.5 mmol/L 21.0-32.0 [facility] Chest 1 View (Portable)on Chest 1 View (Portable) Normal [facility] Chloride assayOrdered By: Joseph Jauregui on 08-25-2024 Chloride [Moles/Vol] 102 mmol/L 98-108 [facility] Comprehensive Metabolic Prof ilon 08-25-2024 Albumin [Mass/Vol] 4.5 g/dL Normal 3.4-4.8 [facility] Comment on above: Performed By: #### L 500.4050, L100.0100 ####[facility] [address] [place], [address] Albumin/Globulin [Mass ratio] 1.4 {ratio} Normal 0.9-2.4 [facility] Comment on above: Performed By: #### L 500.4050, L100.0100 ####[facility] [address] [place], [address] ALK PHOS 77 U/L Normal 40-129 [facility] Comment on above: Performed By: #### L 500.4050, L100.0100 ####[facility] [address] [place], [address] ALT [Catalytic activity/Vol] 32 U/L Normal <=46 [facility] Comment on above: Performed By: #### L 500.4050, L100.0100 ####[facility] [address] [place], [address] AST [Catalytic activity/Vol] 26 U/L Normal <=37 [facility] Comment on above: Performed By: #### L 500.4050, L100.0100 ####[facility] [address] [place], [address] Bilirubin [Mass/Vol] 0.22 mg/dL Normal 0.00-1.30 [facility] Comment on above: Performed By: #### L 500.4050, L100.0100 ####[facility] [address] [place], [address] BUN/CRE 21.4 RATIO High 10-20 [facility] Comment on above: Performed By: #### L 500.4050, L100.0100 ####[facility] [address] [place], [address] Calcium [Mass/Vol] 10.0 mg/dL Normal 7.6-11.0 [facility] Comment on above: Performed By: #### L 500.4050, L100.0100 ####[facility] [address] [place], [address] Chloride [Moles/Vol] 102 mmol/L Normal 98-108 [facility] Comment on above: Performed By: #### L 500.4050, L100.0100 ####[facility] [address] [place], [address] CO2 [Moles/Vol] 24.5 mmol/L Normal 21.0-32.0 [facility] Comment on above: Performed By: #### L 500.4050, L100.0100 ####[facility] [address] [place], [address] Creatinine [Mass/Vol] 1.17 mg/dL Normal 0.70-1.20 [facility] Comment on above: Performed By: #### L 500.4050, L100.0100 ####[facility] [address] [place], [address] GAP 13 Normal 5-15 [facility] Comment on above: Performed By: #### L 500.4050, L100.0100 ####[facility] [address] [place], [address] GFR/1.73 sq M.predicted among non-blacks MDRD (S/P/Bld) [Vol rate/Area] 65 mL/min/{1.73_m2} Normal >60 [facility] Comment on above: Result Comment: mL/m in/1.73m2 CKD-EPI Creatinine Equation (2020) Performed By: #### L 500.4050, L100.0100 ####[facility] [address] [place], [address] Globulin (S) [Mass/Vol] 3.2 g/dL Normal 2.2-4.2 [facility] Comment on above: Performed By: #### L 500.4050, L100.0100 ####[facility] [address] [place], [address] Glucose [Mass/Vol] 98 mg/dL Normal 70-99 [facility] Comment on above: Performed By: #### L 500.4050, L100.0100 ####[facility] [address] [place], [address] Potassium [Moles/Vol] 3.8 mmol/L Normal 3.3-5.1 [facility] Comment on above: Performed By: #### L 500.4050, L100.0100 ####[facility] [address] [place], [address] Sodium [Moles/Vol] 139 mmol/L Normal 133-145 [facility] Comment on above: Performed By: #### L 500.4050, L100.0100 ####[facility] [address] [place], [address] T PROT 7.7 g/dL Normal 5.9-8.4 [facility] Comment on above: Performed By: #### L 500.4050, L100.0100 ####[facility] [address] [place], [address] Urea nitrogen [Mass/Vol] 25 mg/dL High 4-19 [facility] Comment on above: Performed By: #### L 500.4050, L100.0100 ####[facility] [address] [place], [place], [id number] Emergency Department Summary on 08-25-2024 Emergency Department Summary Normal [facility] Eosinophil percentageOrdered By: Jaden Jauregui on 08-25-2024 Eosinophils/100 WBC (Bld) 0.3 % 0-5 [facility] Erythrocyte distribution wid th ratioOrdered By: Jaden Jauregui on 08-25-2024 Erythrocyte distribution width (RBC) [Ratio] 13.2 % 11.6-14.6 [facility] Erythrocyte distribution wid th standard deviationOrdered By: Jaden Jauregui on 08-25-2024 Erythrocyte distribution width (RBC) [Entitic vol] 46.6 fL High 35.1-43.9 [facility] GFR/1.73 sq M.predicted gisella g non-blacks MDRD (S/P/Bld) [Vol rate/Area]Ordered By: Jaden Jauregui on 08-25-2024 Estimated GFR (MDRD) Non-Af Amer 65 >60 [facility] Comment on above: mL/min/1.73m2 CKD-EP I Creatinine Equation (2020) H AND P Exam - Hospitaliston 08-25-2024 H&P Exam - Hospitalist Normal [facility] Hematocrit Auto (Bld) [Volum e fraction]Ordered By: Jaden Jauregui on 08-25-2024 Hematocrit (Bld) [Volume fraction] 43.3 % 40-54 [facility] Hemoglobin measurementOrdere d By: Jaden Jauregui on 08-25-2024 Hemoglobin (Bld) [Mass/Vol] 14.2 g/dL 13.0-16.5 [facility] Immature granulocytes/100 WB C Auto (Bld)Ordered By: Jaden Jauregui on 08-25-2024 Immature granulocytes/100 WBC (Bld) 0.300 % 0.0-0.9 [facility] Comment on above: IG% - Immature Granu locytes (promyelocytes, myelocytes and metamyelocytes) > 1% indicates that a LEFT SHIFT is Present. Laboratory - Chemistry and C hemistry - challengeOrdered By: Jaden Jauregui on 08-25-2024 AST [Catalytic activity/Vol] 26 U/L <38 [facility] Lymphocytes Auto (Unsp spec) [#/Vol]Ordered By: Jaden Jauregiu on 08-25-2024 Lymphocytes (Bld) [#/Vol] 0.61 10*3/uL Low 0.83-4.51 [facility] Lymphocytes/100 WBC Auto (Un sp spec)Ordered By: Jaden Jauregui on 08-25-2024 Lymphocytes/100 WBC (Bld) 10.3 % Low 19-41 [facility] MCV (mean corpuscular volume ) determinationOrdered By: Jaden Jauregui on 08-25-2024 MCV (RBC) [Entitic vol] 95.8 fL High 80-94 [facility] Mean corpuscular hemoglobin (MCH) determinationOrdered By: Jaden Jauregui on 08-25-2024 MCH (RBC) [Entitic mass] 31.4 pg 27.0-32.0 [facility] Mean corpuscular hemoglobin concentration (MCHC) determinationOrdered By: Jaden Jauregui on 08-25-2024 MCHC (RBC) [Mass/Vol] 32.8 g/dL 32-36 [facility] Mean platelet volume determi nationOrdered By: Jaden Jauregui on 08-25-2024 Platelet mean volume (Bld) [Entitic vol] 9.5 fL 6.2-12.0 [facility] Monocyte percentageOrdered B y: Jaden Jauregui on 08-25-2024 Monocytes/100 WBC (Bld) 9.9 % 0-10 [facility] Neutrophil percentageOrdered By: Jaden Jauregui on 08-25-2024 Neutrophils/100 WBC (Bld) 78.4 % High 47-70 [facility] Nucleated red blood cell per centageOrdered By: Jaden Jauregui on 08-25-2024 Nucleated RBC/100 WBC (Bld) [Ratio] 0 % 0-5 [facility] Platelet countOrdered By: Joseph Jauregui on 08-25-2024 Platelets (Bld) [#/Vol] 245 10*3/uL 150-450 [facility] Potassium (Unsp spec) [Mass/ Vol]Ordered By: Jaden Jauregui on 08-25-2024 Potassium [Moles/Vol] 3.8 mmol/L 3.3-5.1 [facility] RBC Auto (Bld) [#/Vol]Ordere d By: Jaden Jauregui on 08-25-2024 RBC (Bld) [#/Vol] 4.52 10*6/uL Low 4.6-6.2 [facility] Serum creatinine measurement (mass/volume)Ordered By: Jaden Jauregui on 08-25-2024 Creatinine [Mass/Vol] 1.17 mg/dL 0.70-1.20 [facility] Serum globulin measurementOr dered By: Jaden Jauregui on 08-25-2024 Globulin (S) [Mass/Vol] 3.2 g/dL 2.2-4.2 [facility] Serum glucose measurement (m ass/volume)Ordered By: Jaden Jauregui on 08-25-2024 Glucose [Mass/Vol] 98 mg/dL 70-99 [facility] Serum or plasma alanine saul otransferase (ALT) measurementOrdered By: Jaden Jauregui on 08-25-2024 ALT [Catalytic activity/Vol] 32 U/L <47 [facility] Serum or plasma albumin luis urement (mass/volume)Ordered By: Jaden Jauregui on 08-25-2024 Albumin [Mass/Vol] 4.5 g/dL 3.4-4.8 [facility] Serum or plasma albumin/glob ulin mass ratioOrdered By: Jaden Jauregui on 08-25-2024 Albumin/Globulin [Mass ratio] 1.4 {ratio} 0.9-2.4 [facility] Serum or plasma alkaline kathleen sphatase measurementOrdered By: Jaden Jauregui on 08-25-2024 ALP [Catalytic activity/Vol] 77 U/L 40-129 [facility] Serum or plasma calcium luis urement (mass/volume)Ordered By: Jaden Jauregui on 08-25-2024 Calcium [Mass/Vol] 10.0 mg/dL 7.6-11.0 [facility] Serum or plasma urea nitroge n measurement (mass/volume)Ordered By: Jaden Jauregui on 08-25-2024 Urea nitrogen [Mass/Vol] 25 mg/dL High 4-19 [facility] Sodium levelOrdered By: Maurice Jauregui on 08-25-2024 Sodium [Moles/Vol] 139 mmol/L 133-145 [facility] Total proteinOrdered By: Rad Jauregui on 08-25-2024 Protein [Mass/Vol] 7.7 g/dL 5.9-8.4 [facility] White blood cell (WBC) count Ordered By: Jaden Jauregui on 08-25-2024 WBC (Bld) [#/Vol] 5.9 10*3/uL 4.4-11.0 [facility] 45-ZI-Xkymhte DOrdered By: Landry Crane on 07-15-2024 Vitamin D 25-Hydroxy 36.0 ng/mL [facility] Comment on above: Vitamin D 25(OH) Sta tus Range Deficiency <20 ng/mL (50nmol/L) Insufficiency 20 - 30 ng/mL (50 - 75 nmol/L) Sufficiency 30 - 100 ng/mL (75 - 250 nmol/L) Toxicity >100 ng/mL (>250 nmol/L) Absolute neutrophil countOrd ered By: Carla Crane on 07-15-2024 Neutrophils (Bld) [#/Vol] 2.7 10*3/uL 2.0-7.7 [facility] Albumin to globulin ratioOrd ered By: Carla Crane on 07-15-2024 Albumin/Globulin [Mass ratio] 1.0 {ratio} Normal 0.9-2.4 [facility] Comment on above: Order Comment: 414-2 Performed By: #### L 500.4050, L506.1000, L501.9985, L501.7900, L503.0105, L501.5200, L100.0100 ####[facility] [address] [place], [address] Basophil percentageOrdered B y: Carla Crane on 07-15-2024 Basophils/100 WBC (Bld) 1.4 % High 0-1 [facility] Bilirubin, totalOrdered By: Carla Crane on 07-15-2024 Bilirubin [Mass/Vol] 0.30 mg/dL Normal 0.20-1.00 [facility] Comment on above: For patients on eltr ombopag therapy, use of Dimension [place] TBIL is not recommended. Order Comment: 414-2 Result Comment: For patients on eltrombopag therapy, use of Dimension [place] TBIL is not recommended. Performed By: #### L 500.4050, L506.1000, L501.9985, L501.7900, L503.0105, L501.5200, L100.0100 ####[facility] [address] [place], [address](831) Blood urea nitrogen (BUN)/cr eatinine ratioOrdered By: Carla Crane on 07-15-2024 Urea nitrogen/Creatinine [Mass ratio] 25.4 mg/mg High 10-20 [facility] CBC W/Diff, Automatedon 06-20 Absolute Lymph 1.38 X10 3/uL Normal 0.83-4.51 [facility] Comment on above: Order Comment: 414-2 Performed By: #### L 500.4050, L506.1000, L501.9985, L501.7900, L503.0105, L501.5200, L100.0100 ####[facility] [address] [place], [address](553) Absolute Neut 2.7 X10 3/uL Normal 2.0-7.7 [facility] Comment on above: Order Comment: 414-2 Performed By: #### L 500.4050, L506.1000, L501.9985, L501.7900, L503.0105, L501.5200, L100.0100 ####[facility] [address] [place], [place], [id number](139) Basophils/100 WBC (Bld) 1.4 % High 0-1 [facility] Comment on above: Order Comment: 414-2 Performed By: #### L 500.4050, L506.1000, L501.9985, L501.7900, L503.0105, L501.5200, L100.0100 ####[facility] [address] [place], [address] Eosinophils/100 WBC (Bld) 9.4 % High 0-5 [facility] Comment on above: Order Comment: 414-2 Performed By: #### L 500.4050, L506.1000, L501.9985, L501.7900, L503.0105, L501.5200, L100.0100 ####[facility] [address] [place], [address] Erythrocyte distribution width (RBC) [Ratio] 12.8 % Normal 11.6-14.6 [facility] Comment on above: Order Comment: 414-2 Performed By: #### L 500.4050, L506.1000, L501.9985, L501.7900, L503.0105, L501.5200, L100.0100 ####[facility] [address] [place], [address] Hematocrit (Bld) [Volume fraction] 45.8 % Normal 40-54 [facility] Comment on above: Order Comment: 414-2 Performed By: #### L 500.4050, L506.1000, L501.9985, L501.7900, L503.0105, L501.5200, L100.0100 ####[facility] [address] [place], [address] Hemoglobin (Bld) [Mass/Vol] 14.8 g/dL Normal 13.0-16.5 [facility] Comment on above: Order Comment: 414-2 Performed By: #### L 500.4050, L506.1000, L501.9985, L501.7900, L503.0105, L501.5200, L100.0100 ####[facility] [address] [place], [address] IG% 0.400 Normal 0.0-0.9 [facility] Comment on above: Order Comment: 414-2 Result Comment: IG% - Immature Granulocytes (promyelocytes, myelocytes andmetamyelocytes) > 1% indicates that a LEFT SHIFT is Present. Performed By: #### L 500.4050, L506.1000, L501.9985, L501.7900, L503.0105, L501.5200, L100.0100 ####[facility] [address] [place], [address] Lymphocytes/100 WBC (Bld) 26.9 % Normal 19-41 [facility] Comment on above: Order Comment: 414-2 Performed By: #### L 500.4050, L506.1000, L501.9985, L501.7900, L503.0105, L501.5200, L100.0100 ####[facility] [address] [place], [address] MCH (RBC) [Entitic mass] 31.2 pg Normal 27.0-32.0 [facility] Comment on above: Order Comment: 414-2 Performed By: #### L 500.4050, L506.1000, L501.9985, L501.7900, L503.0105, L501.5200, L100.0100 ####[facility] [address] [place], [address] MCHC (RBC) [Mass/Vol] 32.3 g/dL Normal 32-36 [facility] Comment on above: Order Comment: 414-2 Performed By: #### L 500.4050, L506.1000, L501.9985, L501.7900, L503.0105, L501.5200, L100.0100 ####[facility] [address] [place], [address] MCV (RBC) [Entitic vol] 96.4 fL High 80-94 [facility] Comment on above: Order Comment: 414-2 Performed By: #### L 500.4050, L506.1000, L501.9985, L501.7900, L503.0105, L501.5200, L100.0100 ####[facility] [address] [place], [address] Monocytes/100 WBC (Bld) 8.8 % Normal 0-10 [facility] Comment on above: Order Comment: 414-2 Performed By: #### L 500.4050, L506.1000, L501.9985, L501.7900, L503.0105, L501.5200, L100.0100 ####[facility] [address] [place], [address] Neutrophils/100 WBC (Bld) 53.1 % Normal 47-70 [facility] Comment on above: Order Comment: 414-2 Performed By: #### L 500.4050, L506.1000, L501.9985, L501.7900, L503.0105, L501.5200, L100.0100 ####[facility] [address] [place], [address] Nucleated RBC (Bld) [#/Vol] 0 10*3/uL Normal 0-5 [facility] Comment on above: Order Comment: 414-2 Performed By: #### L 500.4050, L506.1000, L501.9985, L501.7900, L503.0105, L501.5200, L100.0100 ####[facility] [address] [place], [address] Platelet mean volume (Bld) [Entitic vol] 9.6 fL Normal 6.2-12.0 [facility] Comment on above: Order Comment: 414-2 Performed By: #### L 500.4050, L506.1000, L501.9985, L501.7900, L503.0105, L501.5200, L100.0100 ####[facility] [address] [place], [address] Platelets (Bld) [#/Vol] 295 10*3/uL Normal 150-450 [facility] Comment on above: Order Comment: 414-2 Performed By: #### L 500.4050, L506.1000, L501.9985, L501.7900, L503.0105, L501.5200, L100.0100 ####[facility] [address] [place], [address] RBC (Bld) [#/Vol] 4.75 10*6/uL Normal 4.6-6.2 [facility] Comment on above: Order Comment: 414-2 Performed By: #### L 500.4050, L506.1000, L501.9985, L501.7900, L503.0105, L501.5200, L100.0100 ####[facility] [address] [place], [address] RDW SD 45.4 fl High 35.1-43.9 [facility] Comment on above: Order Comment: 414-2 Performed By: #### L 500.4050, L506.1000, L501.9985, L501.7900, L503.0105, L501.5200, L100.0100 ####[facility] [address] [place], [address] WBC (Bld) [#/Vol] 5.1 10*3/uL Normal 4.4-11.0 [facility] Comment on above: Order Comment: 414-2 Performed By: #### L 500.4050, L506.1000, L501.9985, L501.7900, L503.0105, L501.5200, L100.0100 ####[facility] [address] [place], [address] Carbamazepine (Tegretol)on 0 07-15-2024 CARBAMAZEPINE 7.0 ug/mL Normal 4.0-12.0 [facility] Comment on above: Order Comment: 414-2 Performed By: #### L 500.4050, L506.1000, L501.9985, L501.7900, L503.0105, L501.5200, L100.0100 ####[facility] [address] [place], [place], [id number] Carbon dioxide measurementOr dered By: Carla Crane on 07-15-2024 CO2 [Moles/Vol] 24.0 mmol/L Normal 21.0-32.0 [facility] Comment on above: Order Comment: 414-2 Performed By: #### L 500.4050, L506.1000, L501.9985, L501.7900, L503.0105, L501.5200, L100.0100 ####[facility] [address] [place], [place], [id number] Chloride measurementOrdered By: Carla Crane on 07-15-2024 Chloride [Moles/Vol] 107 mmol/L Normal 98-107 [facility] Comment on above: Order Comment: 414-2 Performed By: #### L 500.4050, L506.1000, L501.9985, L501.7900, L503.0105, L501.5200, L100.0100 ####[facility] [address] [place], [place], [id number] Comprehensive Metabolic Prof ilon 07-15-2024 ALK P 70 U/L Normal 45-117 [facility] Comment on above: Order Comment: 414-2 Performed By: #### L 500.4050, L506.1000, L501.9985, L501.7900, L503.0105, L501.5200, L100.0100 ####[facility] [address] [place], [address] BUN/CRE 25.4 RATIO High 10-20 [facility] Comment on above: Order Comment: 414-2 Performed By: #### L 500.4050, L506.1000, L501.9985, L501.7900, L503.0105, L501.5200, L100.0100 ####[facility] [address] [place], [address] CA,Total 10.1 mg/dL Normal 8.5-10.1 [facility] Comment on above: Order Comment: 414-2 Performed By: #### L 500.4050, L506.1000, L501.9985, L501.7900, L503.0105, L501.5200, L100.0100 ####[facility] [address] [place], [address] EST GFR - AA 77 mL/min Normal >60 [facility] Comment on above: Order Comment: 414-2 Result Comment: Afri can [place] GFR Calc Performed By: #### L 500.4050, L506.1000, L501.9985, L501.7900, L503.0105, L501.5200, L100.0100 ####[facility] [address] [place], [address] GAP 7 Normal 5-15 [facility] Comment on above: Order Comment: 414-2 Performed By: #### L 500.4050, L506.1000, L501.9985, L501.7900, L503.0105, L501.5200, L100.0100 ####[facility] [address] [place], [address] GFR/1.73 sq M.predicted among non-blacks MDRD (S/P/Bld) [Vol rate/Area] 64 mL/min/{1.73_m2} Normal >60 [facility] Comment on above: Order Comment: 414-2 Result Comment: Non- GFR Calc Performed By: #### L 500.4050, L506.1000, L501.9985, L501.7900, L503.0105, L501.5200, L100.0100 ####[facility] [address] [place], [place], [id number] T PROT 8.0 g/dL Normal 6.4-8.2 [facility] Comment on above: Order Comment: 414-2 Performed By: #### L 500.4050, L506.1000, L501.9985, L501.7900, L503.0105, L501.5200, L100.0100 ####[facility] [address] [place], [place], [id number] Comprehensive Metabolic Prof ilOrdered By: Carla Crane on 07-15-2024 AST [Catalytic activity/Vol] 23 U/L Normal 15-37 [facility] Comment on above: Order Comment: 414-2 Performed By: #### L 500.4050, L506.1000, L501.9985, L501.7900, L503.0105, L501.5200, L100.0100 ####[facility] [address] [place], [place], [id number] Eosinophil percentageOrdered By: Carla Crane on 07-15-2024 Eosinophils/100 WBC (Bld) 9.4 % High 0-5 [facility] Erythrocyte distribution wid th ratioOrdered By: Carla Crane on 07-15-2024 Erythrocyte distribution width (RBC) [Ratio] 12.8 % 11.6-14.6 [facility] Erythrocyte distribution wid th standard deviationOrdered By: Carla Crane on 07-15-2024 Erythrocyte distribution width (RBC) [Entitic vol] 45.4 fL High 35.1-43.9 [facility] Estimated glomerular filtrat ion rate (GFR) AmericanOrdered By: Carla Crane on 07-15-2024 Estimated GFR (MDRD) Amer 77 mL/min >60 [facility] Comment on above: GFR Calc Glomerular filtration rate ( GFR) estimationOrdered By: Carla Crane on 07-15-2024 Estimated GFR (MDRD) Non-Af Amer 64 mL/min >60 [facility] Comment on above: Non- GFR Calc Glucose measurementOrdered B y: Carla Crane on 07-15-2024 Glucose [Mass/Vol] 103 mg/dL Normal 74-106 [facility] Comment on above: Fasting Glucose resu lt from 100 to 125 mg/dL suggests IMPAIRED HOMEOSTASIS per A.D.A. criteria. Order Comment: 414-2 Result Comment: Fast ing Glucose result from 100 to 125 mg/dLsuggests IMPAIRED HOMEOSTASIS per A.D.A. criteria. Performed By: #### L 500.4050, L506.1000, L501.9985, L501.7900, L503.0105, L501.5200, L100.0100 ####[facility] [id number] [place], [address] Hematocrit Auto (Bld) [Volum e fraction]Ordered By: Carla Crane on 07-15-2024 Hematocrit (Bld) [Volume fraction] 45.8 % 40-54 [facility] Hemoglobin A1con 07-15-2024 HbA1c (Bld) [Mass fraction] 5.6 % Normal 3.8-5.6 [facility] Comment on above: Order Comment: 414-2 Result Comment: Norm al < 5.7 % Prediabetic 5.7 - 6.4 % Diabetic >or= 6.5 % Please note range changes. Performed By: #### L 500.4050, L506.1000, L501.9985, L501.7900, L503.0105, L501.5200, L100.0100 ####[facility] [id number] [place], [address] Hemoglobin A1c percentageOrd ered By: Carla Crane on 07-15-2024 HbA1c (Bld) [Mass fraction] 5.6 % 3.8-5.6 [facility] Comment on above: Normal < 5.7 % Predi abetic 5.7 - 6.4 % Diabetic >or= 6.5 % Please note range changes. Hemoglobin measurementOrdere d By: Carla Crane on 07-15-2024 Hemoglobin (Bld) [Mass/Vol] 14.8 g/dL 13.0-16.5 [facility] Immature granulocytes/100 WB C Auto (Bld)Ordered By: Carla Crane on 07-15-2024 Immature granulocytes/100 WBC (Bld) 0.400 % 0.0-0.9 [facility] Comment on above: IG% - Immature Granu locytes (promyelocytes, myelocytes and metamyelocytes) > 1% indicates that a LEFT SHIFT is Present. Lymphocytes Auto (Unsp spec) [#/Vol]Ordered By: Carla Crane on 07-15-2024 Lymphocytes (Bld) [#/Vol] 1.38 10*3/uL 0.83-4.51 [facility] Lymphocytes/100 WBC Auto (Un sp spec)Ordered By: Carla Crane on 07-15-2024 Lymphocytes/100 WBC (Bld) 26.9 % 19-41 [facility] MCV (mean corpuscular volume ) determinationOrdered By: Carla Crane on 07-15-2024 MCV (RBC) [Entitic vol] 96.4 fL High 80-94 [facility] Magnesium measurementOrdered By: Carla Crane on 07-15-2024 Magnesium [Mass/Vol] 2.1 mg/dL Normal 1.6-2.6 [facility] Comment on above: Order Comment: 414-2 Performed By: #### L 500.4050, L506.1000, L501.9985, L501.7900, L503.0105, L501.5200, L100.0100 ####[facility] [address] [place], [place], [id number] Mean corpuscular hemoglobin (MCH) determinationOrdered By: Carla Crane on 07-15-2024 MCH (RBC) [Entitic mass] 31.2 pg 27.0-32.0 [facility] Mean corpuscular hemoglobin concentration (MCHC) determinationOrdered By: Carla Crane on 07-15-2024 MCHC (RBC) [Mass/Vol] 32.3 g/dL 32-36 [facility] Mean platelet volume determi nationOrdered By: Carla Crane on 07-15-2024 Platelet mean volume (Bld) [Entitic vol] 9.6 fL 6.2-12.0 [facility] Monocyte percentageOrdered B y: Carla Crane on 07-15-2024 Monocytes/100 WBC (Bld) 8.8 % 0-10 [facility] Neutrophil percentageOrdered By: Carla Crane on 07-15-2024 Neutrophils/100 WBC (Bld) 53.1 % 47-70 [facility] Nucleated red blood cell per centageOrdered By: Carla Crane on 07-15-2024 Nucleated RBC/100 WBC (Bld) [Ratio] 0 % 0-5 [facility] Platelet countOrdered By: Wilfredo Crane on 07-15-2024 Platelets (Bld) [#/Vol] 295 10*3/uL 150-450 [facility] Potassium measurementOrdered By: Carla Crane on 07-15-2024 Potassium [Moles/Vol] 3.8 mmol/L Normal 3.5-5.1 [facility] Comment on above: Order Comment: 414-2 Performed By: #### L 500.4050, L506.1000, L501.9985, L501.7900, L503.0105, L501.5200, L100.0100 ####[facility] [address] [place], [place], [id number] RBC Auto (Bld) [#/Vol]Ordere d By: Carla Crane on 07-15-2024 RBC (Bld) [#/Vol] 4.75 10*6/uL 4.6-6.2 [facility] Serum anion gap measurementO rdered By: Carla Crane on 07-15-2024 Anion gap [Moles/Vol] 7 mmol/L 5-15 [facility] Serum globulin measurementOr dered By: Carla Crane on 07-15-2024 Globulin (S) [Mass/Vol] 4.1 g/dL Normal 2.2-4.2 [facility] Comment on above: Order Comment: 414-2 Performed By: #### L 500.4050, L506.1000, L501.9985, L501.7900, L503.0105, L501.5200, L100.0100 ####[facility] [address] [place], [place], [id number] Serum or plasma alanine saul otransferase (ALT) measurementOrdered By: Carla Crane on 07-15-2024 ALT [Catalytic activity/Vol] 37 U/L Normal 16-61 [facility] Comment on above: Order Comment: 414-2 Performed By: #### L 500.4050, L506.1000, L501.9985, L501.7900, L503.0105, L501.5200, L100.0100 ####[facility] [address] [place], [place], [id number] Serum or plasma albumin luis urement (mass/volume)Ordered By: Carla Crane on 07-15-2024 Albumin [Mass/Vol] 3.9 g/dL Normal 3.2-5.0 [facility] Comment on above: Order Comment: 414-2 Performed By: #### L 500.4050, L506.1000, L501.9985, L501.7900, L503.0105, L501.5200, L100.0100 ####[facility] [address] [place], [place], [id number] Serum or plasma alkaline kathleen sphatase measurementOrdered By: Carla Crane on 07-15-2024 ALP [Catalytic activity/Vol] 70 U/L 45-117 [facility] Serum or plasma calcium luis urement (mass/volume)Ordered By: Carla Crane on 07-15-2024 Calcium [Mass/Vol] 10.1 mg/dL 8.5-10.1 [facility] Serum or plasma creatinine m easurement (mass/volume)Ordered By: Carla Crane on 07-15-2024 Creatinine [Mass/Vol] 1.18 mg/dL Normal 0.70-1.30 [facility] Comment on above: The validity of the calculated GFR & GFRAA in patients over 70 years has not been determined. Clinical correlation is essential. Order Comment: 414-2 Result Comment: The validity of the calculated GFR GFRAA in patients over70 years has not been determined. Clinical correlation isessential. Performed By: #### L 500.4050, L506.1000, L501.9985, L501.7900, L503.0105, L501.5200, L100.0100 ####[facility] [address] [place], [address] Serum or plasma urea nitroge n measurement (mass/volume)Ordered By: Carla Crane on 07-15-2024 Urea nitrogen [Mass/Vol] 30 mg/dL High 7-18 [facility] Comment on above: Order Comment: 414-2 Performed By: #### L 500.4050, L506.1000, L501.9985, L501.7900, L503.0105, L501.5200, L100.0100 ####[facility] [address] [place], [address] Sodium levelOrdered By: Luca Crane on 07-15-2024 Sodium [Moles/Vol] 138 mmol/L Normal 136-145 [facility] Comment on above: Order Comment: 414-2 Performed By: #### L 500.4050, L506.1000, L501.9985, L501.7900, L503.0105, L501.5200, L100.0100 ####[facility] [address] [place], [address] Total proteinOrdered By: Ming Crane on 07-15-2024 Protein [Mass/Vol] 8.0 g/dL 6.4-8.2 [facility] Vitamin B12on 07-15-2024 Cobalamin (Vitamin B12) [Mass/Vol] 692 pg/mL Normal 211-911 [facility] Comment on above: Order Comment: 414-2 Performed By: #### L 500.4050, L506.1000, L501.9985, L501.7900, L503.0105, L501.5200, L100.0100 ####[facility] [address] [place], [place], [id number] Vitamin B12 measurementOrder ed By: Carla Crane on 07-15-2024 Cobalamin (Vitamin B12) [Mass/Vol] 692 pg/mL 211-911 [facility] Vitamin D,25 Hydroxyon 07-15 Vitamin D 25-OH 36.0 ng/mL Normal [facility] Comment on above: Order Comment: 414-2 Result Comment: Teri min D 25(OH) Status Range Deficiency <20 ng/mL (50nmol/L) Insufficiency 20 - 30 ng/mL (50 - 75 nmol/L) Sufficiency 30 - 100 ng/mL (75 - 250 nmol/L) Toxicity >100 ng/mL (>250 nmol/L) Performed By: #### L 500.4050, L506.1000, L501.9985, L501.7900, L503.0105, L501.5200, L100.0100 ####[facility] [address] [place], [place], [id number] White blood cell (WBC) count Ordered By: Carla Crane on 07-15-2024 WBC (Bld) [#/Vol] 5.1 10*3/uL 4.4-11.0 [facility] carBAMazepine [Mass/Vol]Orde red By: Carla Crane on 07-15-2024 Carbamazepine (Tegretol) Level 7.0 ug/mL 4.0-12.0 [facility] Basic Metabolic Profile (BMP )on 04-15-2024 BUN Normal 7-18 [facility] Comment on above: Result Comment: Canc elled via OM: Order cancelled - Patient discharged Performed By: #### L 100.0100, L500.2500 ####[facility] [address] [place], [address] BUN/CRE Normal 10-20 [facility] Comment on above: Result Comment: Canc elled via OM: Order cancelled - Patient discharged Performed By: #### L 100.0100, L500.2500 ####[facility] [address] [place], [address] CA,Total Normal 8.5-10.1 [facility] Comment on above: Result Comment: Canc elled via OM: Order cancelled - Patient discharged Performed By: #### L 100.0100, L500.2500 ####[facility] [address] [place], [address] CL Normal 98-107 [facility] Comment on above: Result Comment: Canc elled via OM: Order cancelled - Patient discharged Performed By: #### L 100.0100, L500.2500 ####[facility] [address] [place], [address] CO2 Normal 21.0-32.0 [facility] Comment on above: Result Comment: Canc elled via OM: Order cancelled - Patient discharged Performed By: #### L 100.0100, L500.2500 ####[facility] [address] [place], [address] CREAT,SERUM Normal 0.70-1.30 [facility] Comment on above: Result Comment: Canc elled via OM: Order cancelled - Patient discharged Performed By: #### L 100.0100, L500.2500 ####[facility] [address] [place], [address] EST GFR Normal >60 [facility] Comment on above: Result Comment: Canc elled via OM: Order cancelled - Patient discharged Performed By: #### L 100.0100, L500.2500 ####[facility] [address] [place], [address] EST GFR - AA Normal >60 [facility] Comment on above: Result Comment: Canc elled via OM: Order cancelled - Patient discharged Performed By: #### L 100.0100, L500.2500 ####[facility] [address] [place], [address] GAP Normal 5-15 [facility] Comment on above: Result Comment: Canc elled via OM: Order cancelled - Patient discharged Performed By: #### L 100.0100, L500.2500 ####[facility] [address] [place], [address] GLU Normal 74-106 [facility] Comment on above: Result Comment: Canc elled via OM: Order cancelled - Patient discharged Performed By: #### L 100.0100, L500.2500 ####[facility] [address] [place], [address] Potassium Normal 3.5-5.1 [facility] Comment on above: Result Comment: Canc elled via OM: Order cancelled - Patient discharged Performed By: #### L 100.0100, L500.2500 ####[facility] [address] [place], [address] Basic Metabolic Profile (BMP) Normal 136-145 [facility] Comment on above: Result Comment: Canc elled via OM: Order cancelled - Patient discharged Performed By: #### L 100.0100, L500.2500 ####[facility] [address] [place], [address] CBC W/Diff, Automatedon 10-2 Absolute Neut Normal 2.0-7.7 [facility] Comment on above: Result Comment: Canc elled via OM: Order cancelled - Patient discharged Performed By: #### L 100.0100, L500.2500 ####[facility] [address] [place], [address] HCT Normal 40-54 [facility] Comment on above: Result Comment: Canc elled via OM: Order cancelled - Patient discharged Performed By: #### L 100.0100, L500.2500 ####[facility] [address] [place], [address] HGB Normal 13.0-16.5 [facility] Comment on above: Result Comment: Canc elled via OM: Order cancelled - Patient discharged Performed By: #### L 100.0100, L500.2500 ####[facility] [address] [place], [address] MCH Normal 27.0-32.0 [facility] Comment on above: Result Comment: Canc elled via OM: Order cancelled - Patient discharged Performed By: #### L 100.0100, L500.2500 ####[facility] [address] [place], [address] MCHC Normal 32-36 [facility] Comment on above: Result Comment: Canc elled via OM: Order cancelled - Patient discharged Performed By: #### L 100.0100, L500.2500 ####[facility] [address] [place], [address] MCV Normal 80-94 [facility] Comment on above: Result Comment: Canc elled via OM: Order cancelled - Patient discharged Performed By: #### L 100.0100, L500.2500 ####[facility] [address] [place], [address] NEUT% Normal 47-70 [facility] Comment on above: Result Comment: Canc elled via OM: Order cancelled - Patient discharged Performed By: #### L 100.0100, L500.2500 ####[facility] [address] [place], [address] PLT Normal 150-450 [facility] Comment on above: Result Comment: Canc elled via OM: Order cancelled - Patient discharged Performed By: #### L 100.0100, L500.2500 ####[facility] [address] [place], [address] RBC Normal 4.6-6.2 [facility] Comment on above: Result Comment: Canc elled via OM: Order cancelled - Patient discharged Performed By: #### L 100.0100, L500.2500 ####[facility] [address] [place], [address] RDW CV Normal 11.6-14.6 [facility] Comment on above: Result Comment: Canc elled via OM: Order cancelled - Patient discharged Performed By: #### L 100.0100, L500.2500 ####[facility] [address] [place], [address] RDW SD Normal 35.1-43.9 [facility] Comment on above: Result Comment: Canc elled via OM: Order cancelled - Patient discharged Performed By: #### L 100.0100, L500.2500 ####[facility] [address] [place], [address] WBC Normal 4.4-11.0 [facility] Comment on above: Result Comment: Canc elled via OM: Order cancelled - Patient discharged Performed By: #### L 100.0100, L500.2500 ####[facility] [address] [place], [address] Basic Metabolic Profile (BMP )on 04-14-2024 BUN Normal 7-18 [facility] Comment on above: Result Comment: Canc elled via OM: Order cancelled - Patient discharged Performed By: #### L 100.0100, L500.2500 ####[facility] [address] [place], [address] BUN/CRE Normal 10-20 [facility] Comment on above: Result Comment: Canc elled via OM: Order cancelled - Patient discharged Performed By: #### L 100.0100, L500.2500 ####[facility] [address] [place], [address] CA,Total Normal 8.5-10.1 [facility] Comment on above: Result Comment: Canc elled via OM: Order cancelled - Patient discharged Performed By: #### L 100.0100, L500.2500 ####[facility] [address] [place], [address] CL Normal 98-107 [facility] Comment on above: Result Comment: Canc elled via OM: Order cancelled - Patient discharged Performed By: #### L 100.0100, L500.2500 ####[facility] [address] [place], [address] CO2 Normal 21.0-32.0 [facility] Comment on above: Result Comment: Canc elled via OM: Order cancelled - Patient discharged Performed By: #### L 100.0100, L500.2500 ####[facility] [address] [place], [address] CREAT,SERUM Normal 0.70-1.30 [facility] Comment on above: Result Comment: Canc elled via OM: Order cancelled - Patient discharged Performed By: #### L 100.0100, L500.2500 ####[facility] [address] [place], [address] EST GFR Normal >60 [facility] Comment on above: Result Comment: Canc elled via OM: Order cancelled - Patient discharged Performed By: #### L 100.0100, L500.2500 ####[facility] [address] [place], [address] EST GFR - AA Normal >60 [facility] Comment on above: Result Comment: Canc elled via OM: Order cancelled - Patient discharged Performed By: #### L 100.0100, L500.2500 ####[facility] [address] [place], [address] GAP Normal 5-15 [facility] Comment on above: Result Comment: Canc elled via OM: Order cancelled - Patient discharged Performed By: #### L 100.0100, L500.2500 ####[facility] [address] [place], [address] GLU Normal 74-106 [facility] Comment on above: Result Comment: Canc elled via OM: Order cancelled - Patient discharged Performed By: #### L 100.0100, L500.2500 ####[facility] [address] [place], [address] Potassium Normal 3.5-5.1 [facility] Comment on above: Result Comment: Canc elled via OM: Order cancelled - Patient discharged Performed By: #### L 100.0100, L500.2500 ####[facility] [address] [place], [address] Basic Metabolic Profile (BMP) Normal 136-145 [facility] Comment on above: Result Comment: Canc elled via OM: Order cancelled - Patient discharged Performed By: #### L 100.0100, L500.2500 ####[facility] [address] [place], [address] CBC W/Diff, Automatedon 10-2 Absolute Neut Normal 2.0-7.7 [facility] Comment on above: Result Comment: Canc elled via OM: Order cancelled - Patient discharged Performed By: #### L 100.0100, L500.2500 ####[facility] [address] [place], [address] HCT Normal 40-54 [facility] Comment on above: Result Comment: Canc elled via OM: Order cancelled - Patient discharged Performed By: #### L 100.0100, L500.2500 ####[facility] [address] [place], [address] HGB Normal 13.0-16.5 [facility] Comment on above: Result Comment: Canc elled via OM: Order cancelled - Patient discharged Performed By: #### L 100.0100, L500.2500 ####[facility] [address] [place], [address] MCH Normal 27.0-32.0 [facility] Comment on above: Result Comment: Canc elled via OM: Order cancelled - Patient discharged Performed By: #### L 100.0100, L500.2500 ####[facility] [address] [place], [address] MCHC Normal 32-36 [facility] Comment on above: Result Comment: Canc elled via OM: Order cancelled - Patient discharged Performed By: #### L 100.0100, L500.2500 ####[facility] [address] [place], [address] MCV Normal 80-94 [facility] Comment on above: Result Comment: Canc elled via OM: Order cancelled - Patient discharged Performed By: #### L 100.0100, L500.2500 ####[facility] [address] [place], [address] NEUT% Normal 47-70 [facility] Comment on above: Result Comment: Canc elled via OM: Order cancelled - Patient discharged Performed By: #### L 100.0100, L500.2500 ####[facility] [address] [place], [address] PLT Normal 150-450 [facility] Comment on above: Result Comment: Canc elled via OM: Order cancelled - Patient discharged Performed By: #### L 100.0100, L500.2500 ####[facility] [address] [place], [address] RBC Normal 4.6-6.2 [facility] Comment on above: Result Comment: Canc elled via OM: Order cancelled - Patient discharged Performed By: #### L 100.0100, L500.2500 ####[facility] [address] [place], [address] RDW CV Normal 11.6-14.6 [facility] Comment on above: Result Comment: Canc elled via OM: Order cancelled - Patient discharged Performed By: #### L 100.0100, L500.2500 ####[facility] [address] [place], [address] RDW SD Normal 35.1-43.9 [facility] Comment on above: Result Comment: Canc elled via OM: Order cancelled - Patient discharged Performed By: #### L 100.0100, L500.2500 ####[facility] [address] [place], [address] WBC Normal 4.4-11.0 [facility] Comment on above: Result Comment: Canc elled via OM: Order cancelled - Patient discharged Performed By: #### L 100.0100, L500.2500 ####[facility] [address] [place], [address] UA DIP, URINE (POC)on 2023 BILIRUBIN UA (POCT) Negative Negative [facility] CLARITY UA (POCT) Cloudy [facility] COLOR UA (POCT) Yellow [facility] GLUCOSE UA (POCT) Negative Negative mg/dL [facility] Hemoglobin Ql (U) Negative Negative [facility] Interpretation and review of laboratory results Abnormal [facility] KETONE UA (POCT) Trace Negative mg/dL [facility] LEUKOCYTES UA (POCT) Trace Abnormal Negative [facility] NITRITE UA (POCT) Positive Abnormal Negative [facility] PH UA (POCT) 6.0 4.5 - 8.0 [facility] Protein Ql (U) 100 mg/dL Abnormal Negative [facility] SPECIFIC GRAVITY UA (POCT) 1.025 1.005 - 1.030 [facility] UROBILINOGEN UA (POCT) 0.2 Malaika l E.U./dL [facility] Location:[facility], [address] [facility], [place], [place], [address] [place] [address] POINT OF CARE [facility] Absolute lymphocyte countOrd ered By: Brody Maynard on 07-31-2023 Lymphocytes Auto (Unsp spec) [#/Vol] 0.39 10*3/uL 0.83-4.51 [facility] Automated lymphocyte count a s percentage of total leukocytesOrdered By: Brody Maynard on 07-31-2023 Lymphocytes/100 WBC Auto (Unsp spec) 7.1 % 19-41 [facility] Basophil percentageOrdered B y: Brody Maynard on 07-31-2023 Basophil percentage 12.6 g/dL 13.0-16.5 [facility] Basophil percentage 113 mg/dL 74-106 [facility] Basophil percentage 139 mmol/L 136-145 [facility] Basophil percentage 4.0 mmol/L 3.5-5.1 [facility] Basophil percentage 102 mmol/L 98-107 [facility] Basophils (Bld) [#/Vol] 5.5 10*3/uL 4.4-11.0 [facility] Basophils (Bld) [#/Vol] 4.7 10*3/uL 2.0-7.7 [facility] Basophils/100 WBC (Bld) 85.0 % 47-70 [...] distribution width (RBC) [Ratio] 13.2 % 11.6-14.6 [facility] Erythrocyte distribution wid th standard deviationOrdered By: Brody Maynard on 07-31-2023 Erythrocyte distribution width (RBC) [Entitic vol] 47.2 fL 35.1-43.9 [facility] Hematocrit Auto (Bld) [Volum e fraction]Ordered By: Brody Maynard on 07-31-2023 Hematocrit (Bld) [Volume fraction] 37.9 % 40-54 [facility] Immature granulocytes/100 WB C Auto (Bld)Ordered By: Brody Maynard on 07-31-2023 Immature granulocytes/100 WBC (Bld) 0.400 % 0.0-0.9 [facility] No Panel InformationOrdered By: Brody Maynard on 07-31-2023 32.7 pg 27.0-32.0 [facility] 33.2 g/dL 32-36 [facility] 284 K/mm3 150-450 [facility] 10.1 fl 6.2-12.0 [facility] 0 % 0-5 [facility] 77 mL/min >60 [facility] 93 mL/min >60 [facility] 60.90 ml/min [facility] 22.8 RATIO 10-20 [facility] 29.0 mmol/L 21.0-32.0 [facility] RBC Auto (Bld) [#/Vol]Ordere d By: Brody Maynard on 07-31-2023 RBC (Bld) [#/Vol] 3.85 10*6/uL 4.6-6.2 [facility] Serum or plasma calcium luis urement (mass/volume)Ordered By: Brody Maynard on 07-31-2023 Calcium [Mass/Vol] 8.6 mg/dL 8.5-10.1 [facility] Serum or plasma creatinine m easurement (mass/volume)Ordered By: Brody Maynard on 07-31-2023 Creatinine [Mass/Vol] 1.01 mg/dL 0.70-1.30 [facility] Serum or plasma urea nitroge n measurement (mass/volume)Ordered By: Brody Maynard on 07-31-2023 Urea nitrogen [Mass/Vol] 23 mg/dL 7-18 [facility] Thin prep Papanicolaou smear with manual screeningOrdered By: Brody Maynard on 07-31-2023 Thin prep Papanicolaou smear with manual screening 8 5-15 [facility] Absolute lymphocyte countOrd ered By: Андрей Ng on 07-30-2023 Lymphocytes Auto (Unsp spec) [#/Vol] 0.60 10*3/uL 0.83-4.51 [facility] Automated lymphocyte count a s percentage of total leukocytesOrdered By: Андрей Ng on 07-30-2023 Lymphocytes/100 WBC Auto (Unsp spec) 10.9 % 19-41 [facility] Base excessOrdered By: ED MD OVIDER on 07-30-2023 Base excess Calc (BldV) [Moles/Vol] 2 mmol/L -1.0-3.5 [facility] Basophil percentageOrdered B y: Андрей Ng on 07-30-2023 Basophil percentage 0 SEEN /hpf 0-5 [facility] Basophil percentage 13.3 g/dL 13.0-16.5 [facility] Basophil percentage 114 mg/dL 74-106 [facility] Basophil percentage 138 mmol/L 136-145 [facility] Basophil percentage 4.2 mmol/L 3.5-5.1 [facility] Basophil percentage 102 mmol/L 98-107 [facility] Basophils (Bld) [#/Vol] 5.5 10*3/uL 4.4-11.0 [facility] Basophils (Bld) [#/Vol] 4.2 10*3/uL 2.0-7.7 [facility] Basophils/100 WBC (Bld) 76.5 % 47-70 [...] on 07-30-2023 Bilirubin Ql (U) Negative Negative [facility] CO2 (BldV) [Moles/Vol]Ordere d By: ED PROVIDER on 07-30-2023 CO2 [Moles/Vol] 29 mmol/L 23-33 [facility] Determination of erythrocyte mean corpuscular volume (MCV)Ordered By: Андрей Ng on 07-30-2023 MCV (RBC) [Entitic vol] 99.3 fL 80-94 [facility] Erythrocyte distribution wid th ratioOrdered By: Андрей Ng on 07-30-2023 Erythrocyte distribution width (RBC) [Ratio] 13.2 % 11.6-14.6 [facility] Erythrocyte distribution wid th standard deviationOrdered By: Андрей Ng on 07-30-2023 Erythrocyte distribution width (RBC) [Entitic vol] 48.3 fL 35.1-43.9 [facility] Hematocrit Auto (Bld) [Volum e fraction]Ordered By: Андрей Ng on 07-30-2023 Hematocrit (Bld) [Volume fraction] 40.4 % 40-54 [facility] Immature granulocytes/100 WB C Auto (Bld)Ordered By: Андрей Ng on 07-30-2023 Immature granulocytes/100 WBC (Bld) 0.500 % 0.0-0.9 [facility] Ketones Test strip Ql (U)Ord ered By: Андрей Ng on 07-30-2023 Ketones Ql (U) Negative Negative [facility] Mucus LM Ql (Urine sed)Order ed By: Андрей Ng on 07-30-2023 Mucus Ql (Urine sed) 0 SEEN /hpf [facility] Nitrite Test strip Ql (U)Ord ered By: Андрей Ng on 07-30-2023 Nitrite Ql (U) Negative Negative [facility] No Panel InformationOrdered By: Андрей Ng on 07-30-2023 0 SEEN /hpf 0-5 [facility] Influenzae A [facility] 32.7 pg 27.0-32.0 [facility] 32.9 g/dL 32-36 [facility] 262 K/mm3 150-450 [facility] 9.4 fl 6.2-12.0 [facility] 0 % 0-5 [facility] 67 mL/min >60 [facility] 81 mL/min >60 [facility] 55.00 ml/min [facility] 22.8 RATIO 10-20 [facility] 15 pg/mL 3.0-78.0 [facility] 29.0 mmol/L 21.0-32.0 [facility] 218.8 pg/mL 0-100 [facility] No Panel InformationOrdered By: ED PROVIDER on 07-30-2023 LASHAE [facility] Not entered [facility] Cannula [facility] 3.0 [facility] 28 mmol/L 22-26 [facility] 69 % 50-70 [facility] PCO2 venousOrdered By: ED MD OVIDER on 07-30-2023 CO2 (BldV) [Partial pressure] 48.6 mm[Hg] 41-51 [facility] PO2 venousOrdered By: ED PRO VIDER on 07-30-2023 Oxygen (BldV) [Partial pressure] 38 mm[Hg] 25-40 [facility] Protein Test strip Ql (U)Ord ered By: Андрей Ng on 07-30-2023 Protein Ql (U) 30 mg/dl Negative [facility] RBC Auto (Bld) [#/Vol]Ordere d By: Андрей Ng on 07-30-2023 RBC (Bld) [#/Vol] 4.07 10*6/uL 4.6-6.2 [facility] Serum or plasma calcium luis urement (mass/volume)Ordered By: Андрей Ng on 07-30-2023 Calcium [Mass/Vol] 9.2 mg/dL 8.5-10.1 [facility] Serum or plasma creatinine m easurement (mass/volume)Ordered By: Андрей Ng on 07-30-2023 Creatinine [Mass/Vol] 1.14 mg/dL 0.70-1.30 [facility] Serum or plasma urea nitroge n measurement (mass/volume)Ordered By: Андрей Ng on 07-30-2023 Urea nitrogen [Mass/Vol] 26 mg/dL 7-18 [facility] Squamous epithelial cells de tection in urine sediment by light microscopyOrdered By: Андрей Ng on 07-30-2023 Epithelial cells.squamous LM Ql (Urine sed) 0 SEEN /hpf 0-5 [facility] Thin prep Papanicolaou smear with manual screeningOrdered By: Андрей Ng on 07-30-2023 Thin prep Papanicolaou smear with manual screening 7 5-15 [facility] Urine blood detectionOrdered By: Андрей Ng on 07-30-2023 RBC Ql (U) 10 /ul Negative [facility] Urine clarityOrdered By: Italia Ng on 07-30-2023 Clarity (U) Clear Clear [facility] Urine color determinationOrd ered By: Андрей Ng on 07-30-2023 Color (U) Yellow Yellow [facility] Urine glucose detectionOrder ed By: Андрей Ng on 07-30-2023 Glucose Ql (U) Normal mg/dl Normal [facility] Urine leukocyte esterase det ection by dipstickOrdered By: Андрей Ng on 07-30-2023 Leukocyte esterase Test strip Ql (U) Negative Negative [facility] Urine pHOrdered By: Андрей garland on 07-30-2023 pH (U) 7.0 [pH] 5.0 - 8.0 [facility] Urine sediment bacteria coun t by microscopy (number/high power field)Ordered By: Андрей Ng on 07-30-2023 Bacteria LM.HPF (Urine sed) [#/Area] 0 /[HPF] None Seen [facility] Urine specific gravity measu rementOrdered By: Андрей Ng on 07-30-2023 Specific gravity (U) [Rel density] 1.010 1.002-1.030 [facility] Urine urobilinogen measureme ntOrdered By: Андрей Ng on 07-30-2023 Urobilinogen Ql (U) Normal mg/dl Normal [facility] Venous blood pH measurementO rdered By: ED PROVIDER on 07-30-2023 pH (BldV) 7.36 [pH] 7.32-7.42 [facility] Basophil percentageOrdered B y: Андрей Cooley on 07-27-2023 Basophil percentage 12.8 g/dL 13.0-16.5 [facility] Basophil percentage 103 mg/dL 74-106 [facility] Basophil percentage 141 mmol/L 136-145 [facility] Basophil percentage 3.7 mmol/L 3.5-5.1 [facility] Basophil percentage 110 mmol/L 98-107 [facility] Basophils (Bld) [#/Vol] 6.8 10*3/uL 4.4-11.0 [facility] Determination of erythrocyte mean corpuscular volume (MCV)Ordered By: Андрей Cooley on 07-27-2023 MCV (RBC) [Entitic vol] 98.5 fL 80-94 [facility] Erythrocyte distribution wid th ratioOrdered By: Андрей Cooley on 07-27-2023 Erythrocyte distribution width (RBC) [Ratio] 13.1 % 11.6-14.6 [facility] Erythrocyte distribution wid th standard deviationOrdered By: Андрей Cooley on 07-27-2023 Erythrocyte distribution width (RBC) [Entitic vol] 46.7 fL 35.1-43.9 [facility] Hematocrit Auto (Bld) [Volum e fraction]Ordered By: Андрей Cooley on 07-27-2023 Hematocrit (Bld) [Volume fraction] 38.9 % 40-54 [facility] No Panel InformationOrdered By: Андрей Cooley on 07-27-2023 32.4 pg 27.0-32.0 [facility] 32.9 g/dL 32-36 [facility] 246 K/mm3 150-450 [facility] 10.1 fl 6.2-12.0 [facility] 56 mL/min >60 [facility] 68 mL/min >60 [facility] 26.5 RATIO 10-20 [facility] 29.0 mmol/L 21.0-32.0 [facility] RBC Auto (Bld) [#/Vol]Ordere d By: Андрей Cooley on 07-27-2023 RBC (Bld) [#/Vol] 3.95 10*6/uL 4.6-6.2 [facility] Serum or plasma calcium luis urement (mass/volume)Ordered By: Андрей Cooley on 07-27-2023 Calcium [Mass/Vol] 9.5 mg/dL 8.5-10.1 [facility] Serum or plasma creatinine m easurement (mass/volume)Ordered By: Андрей Cooley on 07-27-2023 Creatinine [Mass/Vol] 1.32 mg/dL 0.70-1.30 [facility] Serum or plasma urea nitroge n measurement (mass/volume)Ordered By: Андрей Cooley on 07-27-2023 Urea nitrogen [Mass/Vol] 35 mg/dL 7-18 [facility] Thin prep Papanicolaou smear with manual screeningOrdered By: Андрей Cooley on 07-27-2023 Thin prep Papanicolaou smear with manual screening 2 5-15 [facility] Absolute lymphocyte countOrd ered By: Андрей Cooley on 07-25-2023 Lymphocytes Auto (Unsp spec) [#/Vol] 1.22 10*3/uL 0.83-4.51 [facility] Automated lymphocyte count a s percentage of total leukocytesOrdered By: Андрей Cooley on 07-25-2023 Lymphocytes/100 WBC Auto (Unsp spec) 17.6 % 19-41 [facility] Basophil percentageOrdered B y: Андрей Cooley on 07-25-2023 Basophil percentage 14.3 g/dL 13.0-16.5 [facility] Basophil percentage 126 mg/dL 74-106 [facility] Basophil percentage 138 mmol/L 136-145 [facility] Basophil percentage 3.5 mmol/L 3.5-5.1 [facility] Basophil percentage 105 mmol/L 98-107 [facility] Basophils (Bld) [#/Vol] 6.9 10*3/uL 4.4-11.0 [facility] Basophils (Bld) [#/Vol] 4.9 10*3/uL 2.0-7.7 [facility] Basophils/100 WBC (Bld) 70.5 % 47-70 [...] distribution width (RBC) [Ratio] 12.7 % 11.6-14.6 [facility] Erythrocyte distribution wid th standard deviationOrdered By: Андрей Cooley on 07-25-2023 Erythrocyte distribution width (RBC) [Entitic vol] 44.9 fL 35.1-43.9 [facility] Hematocrit Auto (Bld) [Volum e fraction]Ordered By: Андрей Cooley on 07-25-2023 Hematocrit (Bld) [Volume fraction] 41.9 % 40-54 [facility] Immature granulocytes/100 WB C Auto (Bld)Ordered By: Андрей Cooley on 07-25-2023 Immature granulocytes/100 WBC (Bld) 0.300 % 0.0-0.9 [facility] No Panel InformationOrdered By: Андрей Cooley on 07-25-2023 32.5 pg 27.0-32.0 [facility] 34.1 g/dL 32-36 [facility] 245 K/mm3 150-450 [facility] 9.7 fl 6.2-12.0 [facility] 0 % 0-5 [facility] 62 mL/min >60 [facility] 75 mL/min >60 [facility] 39.28 ml/min [facility] 13.2 RATIO 10-20 [facility] 25.0 mmol/L 21.0-32.0 [facility] RBC Auto (Bld) [#/Vol]Ordere d By: Андрей Cooley on 07-25-2023 RBC (Bld) [#/Vol] 4.40 10*6/uL 4.6-6.2 [facility] Serum or plasma calcium luis urement (mass/volume)Ordered By: Андрей Cooley on 07-25-2023 Calcium [Mass/Vol] 9.3 mg/dL 8.5-10.1 [facility] Serum or plasma creatinine m easurement (mass/volume)Ordered By: Андрей Cooley on 07-25-2023 Creatinine [Mass/Vol] 1.21 mg/dL 0.70-1.30 [facility] Serum or plasma urea nitroge n measurement (mass/volume)Ordered By: Андрей Coolye on 07-25-2023 Urea nitrogen [Mass/Vol] 16 mg/dL 7-18 [facility] Thin prep Papanicolaou smear with manual screeningOrdered By: Андрей Cooley on 07-25-2023 Thin prep Papanicolaou smear with manual screening 8 5-15 [facility] Absolute lymphocyte countOrd ered By: Raul Melchor on 07-24-2023 Lymphocytes Auto (Unsp spec) [#/Vol] 1.14 10*3/uL 0.83-4.51 [facility] Automated lymphocyte count a s percentage of total leukocytesOrdered By: Raul Melchor on 07-24-2023 Lymphocytes/100 WBC Auto (Unsp spec) 16.0 % 19-41 [facility] Basophil percentageOrdered B y: Raul Melchor on 07-24-2023 Basophils/100 WBC (Bld) 1.0 % 0-1 [facility] Chloride [Moles/Vol] 103 mmol/L 98-107 [facility] Eosinophils/100 WBC (Bld) 1.1 % 0-5 [facility] Glucose [Mass/Vol] 134 mg/dL 74-106 [facility] Comment on above: Fasting Glucose resu lt greater than or equal to 126 mg/dL suggests DIABETES MELLITUS per A.D.A. criteria. Hemoglobin (Bld) [Mass/Vol] 16.2 g/dL 13.0-16.5 [facility] Monocytes/100 WBC (Bld) 7.3 % 0-10 [facility] Neutrophils (Bld) [#/Vol] 5.3 10*3/uL 2.0-7.7 [facility] Neutrophils/100 WBC (Bld) 74.0 % 47-70 [facility] Potassium [Moles/Vol] 3.8 mmol/L 3.5-5.1 [facility] Comment on above: Moderate Hemolysis, Result may be falsely increased. Sodium [Moles/Vol] 139 mmol/L 136-145 [facility] WBC (Bld) [#/Vol] 7.1 10*3/uL 4.4-11.0 [facility] Determination of erythrocyte mean corpuscular volume (MCV)Ordered By: Raul Melchor on 07-24-2023 MCV (RBC) [Entitic vol] 94.8 fL 80-94 [facility] Erythrocyte distribution wid th ratioOrdered By: Raul Melchor on 07-24-2023 Erythrocyte distribution width (RBC) [Ratio] 12.8 % 11.6-14.6 [facility] Erythrocyte distribution wid th standard deviationOrdered By: Raul Melchor on 07-24-2023 Erythrocyte distribution width (RBC) [Entitic vol] 44.3 fL 35.1-43.9 [facility] Hematocrit Auto (Bld) [Volum e fraction]Ordered By: Raul Melchor on 07-24-2023 Hematocrit (Bld) [Volume fraction] 47.4 % 40-54 [facility] Immature granulocytes/100 WB C Auto (Bld)Ordered By: Raul Melchor on 07-24-2023 Immature granulocytes/100 WBC (Bld) 0.600 % 0.0-0.9 [facility] Comment on above: IG% - Immature Granu locytes (promyelocytes, myelocytes and metamyelocytes) > 1% indicates that a LEFT SHIFT is Present. Laboratory - Chemistry and C hemistry - challengeOrdered By: Raul Melchor on 07-24-2023 CO2 [Moles/Vol] 28.0 mmol/L 21.0-32.0 [facility] Urea nitrogen/Creatinine [Mass ratio] 14.1 mg/mg 10-20 [facility] Laboratory - Hematology and Cell countsOrdered By: Raul Melchor on 07-24-2023 MCH (RBC) [Entitic mass] 32.4 pg 27.0-32.0 [facility] MCHC (RBC) [Mass/Vol] 34.2 g/dL 32-36 [facility] Nucleated RBC/100 WBC (Bld) [Ratio] 0 % 0-5 [facility] Platelets (Bld) [#/Vol] 285 10*3/uL 150-450 [facility] No Panel InformationOrdered By: Raul Melchor on 07-24-2023 Estimated Creatinine Clearance Calc 48.70 ml/min [facility] Estimated GFR (MDRD) Amer 71 mL/min >60 [facility] Comment on above: GFR Calc Estimated GFR (MDRD) Non-Af Amer 58 mL/min >60 [facility] Comment on above: Non- GFR Calc Platelet mean volume Ye-Ec ker (Bld) [Entitic vol]Ordered By: Raul Melchor on 07-24-2023 Platelet mean volume (Bld) [Entitic vol] 9.8 fL 6.2-12.0 [facility] RBC Auto (Bld) [#/Vol]Ordere d By: Raul Melchor on 07-24-2023 RBC (Bld) [#/Vol] 5.00 10*6/uL 4.6-6.2 [facility] Serum or plasma calcium luis urement (mass/volume)Ordered By: Raul Melchor on 07-24-2023 Calcium [Mass/Vol] 9.8 mg/dL 8.5-10.1 [facility] Serum or plasma creatinine m easurement (mass/volume)Ordered By: Raul Melchor on 07-24-2023 Creatinine [Mass/Vol] 1.28 mg/dL 0.70-1.30 [facility] Comment on above: The validity of the calculated GFR & GFRAA in patients over 70 years has not been determined. Clinical correlation is essential. Serum or plasma urea nitroge n measurement (mass/volume)Ordered By: Raul Melchor on 07-24-2023 Urea nitrogen [Mass/Vol] 18 mg/dL 7-18 [facility] Thin prep Papanicolaou smear with manual screeningOrdered By: Raul Melchor on 07-24-2023 Thin prep Papanicolaou smear with manual screening 8 5-15 [facility] UAon 07-10-2023 Color (U) Yellow Normal [facility] ([place]) Comment on above: Performed By: #### U A #### [address] [address] Glucose (U) [Mass/Vol] Negative Normal Negative [facility] ([place]) Comment on above: Performed By: #### U A #### [address] [address] Ketones Ql (U) Negative Normal Neg-Trace [facility] ([place]) Comment on above: Performed By: #### U A #### [address] [address] UA Appear Clear Normal Clear [facility] ([place]) Comment on above: Performed By: #### U A #### [address] [address] UA Blood Negative Normal Neg-Trace [facility] ([place]) Comment on above: Performed By: #### U A #### [address] [address] UA Leuk Est Negative Normal Negative [facility] ([place]) Comment on above: Performed By: #### U A #### [address] [address] UA Nitrite Negative Normal Negative [facility] ([place] Comment on above: Performed By: #### U A #### [place] [address] UA pH 5.5 Normal 5.0 - 8.0 [facility] ([place] Comment on above: Performed By: #### U A #### [place] [address] UA Protein 30 mg/dL Normal Negative [facility] ([place] Comment on above: Performed By: #### U A #### [place] [address] UA Spec Grav 1.020 Normal 1.006-1.029 [facility] ([place] Comment on above: Performed By: #### U A #### [place] [address] UA Specimen Type Void Normal [facility] ([place] Comment on above: Performed By: #### U A #### [place] [address] UA Urobilinogen 0.2 E.U./dL Normal 0.2-1.0 [facility] ([place] Comment on above: Performed By: #### U A #### [place] [address] Urobilinogen (U) [Mass/Vol] Negative Normal Neg-Trace [facility] ([place] Comment on above: Performed By: #### U A #### [place] [address] Absolute lymphocyte countOrd ered By: Daija Morton on 06-14-2023 Lymphocytes Auto (Unsp spec) [#/Vol] 1.09 10*3/uL 0.83-4.51 [facility] Basophil percentageOrdered B y: Daija Morton on 06-14-2023 Basophil percentage 108 mg/dL 74-106 [facility] Basophil percentage 139 mmol/L 136-145 [facility] Basophil percentage 4.2 mmol/L 3.5-5.1 [facility] Basophil percentage 104 mmol/L 98-107 [facility] Basophils (Bld) [#/Vol] 6.5 10*3/uL 4.4-11.0 [facility] Basophils (Bld) [#/Vol] 4.7 10*3/uL 2.0-7.7 [facility] Basophils/100 WBC (Bld) 1.4 % 0-1 [facility] Basophils/100 WBC (Bld) 72.2 % 47-70 [facility] Basophils/100 WBC (Bld) 2.0 % 0-5 [facility] Chloride [Moles/Vol] 104 mmol/L 98-107 [facility] Eosinophils/100 WBC (Bld) 2.0 % 0-5 [facility] Glucose [Mass/Vol] 108 mg/dL 74-106 [facility] Comment on above: Fasting Glucose resu lt from 100 to 125 mg/dL suggests IMPAIRED HOMEOSTASIS per A.D.A. criteria. Neutrophils (Bld) [#/Vol] 4.7 10*3/uL 2.0-7.7 [facility] Neutrophils/100 WBC (Bld) 72.2 % 47-70 [facility] Potassium [Moles/Vol] 4.2 mmol/L 3.5-5.1 [facility] Sodium [Moles/Vol] 139 mmol/L 136-145 [facility] WBC (Bld) [#/Vol] 6.5 10*3/uL 4.4-11.0 [facility] Blood erythrocytes count (nu mber/volume)Ordered By: Daija Morton on 06-14-2023 RBC (Bld) [#/Vol] 4.73 10*6/uL 4.6-6.2 [facility] Blood hemoglobin measurement (mass/volume)Ordered By: aDija Morton on 06-14-2023 Hemoglobin (Bld) [Mass/Vol] 15.8 g/dL 13.0-16.5 [facility] Blood lymphocytes/100 leukoc ytesOrdered By: Daija Morton on 06-14-2023 Lymphocytes/100 WBC (Bld) 16.8 % 19-41 [facility] Blood monocytes/100 leukocyt esOrdered By: Daija Morton on 06-14-2023 Monocytes/100 WBC (Bld) 7.1 % 0-10 [facility] Blood platelet mean volumeOr dered By: Daija Morton on 06-14-2023 Platelet mean volume (Bld) [Entitic vol] 9.9 fL 6.2-12.0 [facility] Determination of erythrocyte mean corpuscular volume (MCV)Ordered By: Daija Morton on 06-14-2023 MCV (RBC) [Entitic vol] 96.6 fL 80-94 [facility] Hematocrit Auto (Bld) [Volum e fraction]Ordered By: Daija Morton on 06-14-2023 Hematocrit (Bld) [Volume fraction] 45.7 % 40-54 [facility] Laboratory - Chemistry and C hemistry - challengeOrdered By: Daija Morton on 06-14-2023 CO2 [Moles/Vol] 30.0 mmol/L 21.0-32.0 [facility] Urea nitrogen/Creatinine [Mass ratio] 16.1 mg/mg 10-20 [facility] Laboratory - Hematology and Cell countsOrdered By: Daija Morton on 06-14-2023 Erythrocyte distribution width (RBC) [Entitic vol] 46.5 fL 35.1-43.9 [facility] Erythrocyte distribution width (RBC) [Ratio] 13.1 % 11.6-14.6 [facility] Immature granulocytes/100 WBC (Bld) 0.500 % 0.0-0.9 [facility] Comment on above: IG% - Immature Granu locytes (promyelocytes, myelocytes and metamyelocytes) > 1% indicates that a LEFT SHIFT is Present. MCH (RBC) [Entitic mass] 33.4 pg 27.0-32.0 [facility] Nucleated RBC/100 WBC (Bld) [Ratio] 0 % 0-5 [facility] MCHC Auto (RBC) [Mass/Vol]Or dered By: Daija Morton on 06-14-2023 MCHC (RBC) [Mass/Vol] 34.6 g/dL 32-36 [facility] No Panel InformationOrdered By: Daija Morton on 06-14-2023 Estimated GFR (MDRD) Amer 73 mL/min >60 [facility] Comment on above: GFR Calc Estimated GFR (MDRD) Non-Af Amer 61 mL/min >60 [facility] Comment on above: Non- GFR Calc 33.4 pg 27.0-32.0 [facility] 13.1 % 11.6-14.6 [facility] 46.5 fl 35.1-43.9 [facility] 0.500 % 0.0-0.9 [facility] 0 % 0-5 [facility] 61 mL/min >60 [facility] 73 mL/min >60 [facility] 16.1 RATIO 10-20 [facility] 30.0 mmol/L 21.0-32.0 [facility] Platelets bldOrdered By: Nemesio Morton on 06-14-2023 Platelets (Bld) [#/Vol] 285 10*3/uL 150-450 [facility] Serum or plasma calcium luis urement (mass/volume)Ordered By: Daija Morton on 06-14-2023 Calcium [Mass/Vol] 9.8 mg/dL 8.5-10.1 [facility] Serum or plasma creatinine m easurement (mass/volume)Ordered By: Daija Morton on 06-14-2023 Creatinine [Mass/Vol] 1.24 mg/dL 0.70-1.30 [facility] Comment on above: The validity of the calculated GFR & GFRAA in patients over 70 years has not been determined. Clinical correlation is essential. Serum or plasma urea nitroge n measurement (mass/volume)Ordered By: Daija Morton on 06-14-2023 Urea nitrogen [Mass/Vol] 20 mg/dL 7-18 [facility] Thin prep Papanicolaou smear with manual screeningOrdered By: Daija Morton on 06-14-2023 Thin prep Papanicolaou smear with manual screening 5 5-15 [facility] Basophil percentageOrdered B y: Андрей Cooley on 05-19-2023 Basophil percentage 100 mg/dL 74-106 [facility] Basophil percentage 6.5 g/dL 6.4-8.2 [facility] Basophil percentage 0.30 mg/dL 0.20-1.00 [facility] Basophil percentage 141 mmol/L 136-145 [facility] Basophil percentage 3.6 mmol/L 3.5-5.1 [facility] Basophil percentage 109 mmol/L 98-107 [facility] Basophils (Bld) [#/Vol] 6.2 10*3/uL 4.4-11.0 [facility] Bilirubin [Mass/Vol] 0.30 mg/dL 0.20-1.00 [facility] Comment on above: For patients on eltr ombopag therapy, use of Dimension [place] TBIL is not recommended. Chloride [Moles/Vol] 109 mmol/L 98-107 [facility] Glucose [Mass/Vol] 100 mg/dL 74-106 [facility] Comment on above: Fasting Glucose resu lt from 100 to 125 mg/dL suggests IMPAIRED HOMEOSTASIS per A.D.A. criteria. Potassium [Moles/Vol] 3.6 mmol/L 3.5-5.1 [facility] Protein [Mass/Vol] 6.5 g/dL 6.4-8.2 [facility] Sodium [Moles/Vol] 141 mmol/L 136-145 [facility] WBC (Bld) [#/Vol] 6.2 10*3/uL 4.4-11.0 [facility] Blood erythrocytes count (nu mber/volume)Ordered By: Андрей Cooley on 05-19-2023 RBC (Bld) [#/Vol] 4.24 10*6/uL 4.6-6.2 [facility] Blood hemoglobin measurement (mass/volume)Ordered By: Андрей Cooley on 05-19-2023 Hemoglobin (Bld) [Mass/Vol] 13.8 g/dL 13.0-16.5 [facility] Blood platelet mean volumeOr dered By: Андрей Cooley on 05-19-2023 Platelet mean volume (Bld) [Entitic vol] 9.9 fL 6.2-12.0 [facility] Determination of erythrocyte mean corpuscular volume (MCV)Ordered By: Андрей Cooley on 05-19-2023 MCV (RBC) [Entitic vol] 99.5 fL 80-94 [facility] Hematocrit Auto (Bld) [Volum e fraction]Ordered By: Андрей Cooley on 05-19-2023 Hematocrit (Bld) [Volume fraction] 42.2 % 40-54 [facility] Laboratory - Chemistry and C hemistry - challengeOrdered By: Андрей Cooley on 05-19-2023 ALP [Catalytic activity/Vol] 72 U/L 45-117 [facility] ALT [Catalytic activity/Vol] 33 U/L 16- [facility] CO2 [Moles/Vol] 29.0 mmol/L 21.0-32.0 [facility] Globulin (S) [Mass/Vol] 3.1 g/dL 2.2-4.2 [facility] Urea nitrogen/Creatinine [Mass ratio] 18.6 mg/mg 10-20 [facility] Laboratory - Hematology and Cell countsOrdered By: Андрей Cooley on 05-19-2023 Erythrocyte distribution width (RBC) [Entitic vol] 52.4 fL 35.1-43.9 [facility] Erythrocyte distribution width (RBC) [Ratio] 14.3 % 11.6-14.6 [facility] MCH (RBC) [Entitic mass] 32.5 pg 27.0-32.0 [facility] MCHC Auto (RBC) [Mass/Vol]Or dered By: Андрей Cooley on 05-19-2023 MCHC (RBC) [Mass/Vol] 32.7 g/dL 32-36 [facility] No Panel InformationOrdered By: Андрей Cooley on 05-19-2023 Estimated GFR (MDRD) Amer 78 mL/min >60 [facility] Comment on above: GFR Calc Estimated GFR (MDRD) Non-Af Amer 64 mL/min >60 [facility] Comment on above: Non- GFR Calc 32.5 pg 27.0-32.0 [facility] 14.3 % 11.6-14.6 [facility] 52.4 fl 35.1-43.9 [facility] 64 mL/min >60 [facility] 78 mL/min >60 [facility] 18.6 RATIO 04-07 [facility] 3.1 g/dL 2.2-4.2 [facility] 72 U/L 45-117 [facility] 33 U/L 16- [facility] 29.0 mmol/L 21.0-32.0 [facility] Platelets bldOrdered By: Italia Cooley on 05-19-2023 Platelets (Bld) [#/Vol] 284 10*3/uL 150-450 [facility] Serum or plasma albumin luis urement (mass/volume)Ordered By: Андрей Cooley on 05-19-2023 Albumin [Mass/Vol] 3.4 g/dL 3.2-5.0 [facility] Serum or plasma albumin/glob ulin mass ratioOrdered By: Андрей Cooley on 05-19-2023 Albumin/Globulin [Mass ratio] 1.1 {ratio} 0.9-2.4 [facility] Serum or plasma calcium luis urement (mass/volume)Ordered By: Андрей Cooley on 05-19-2023 Calcium [Mass/Vol] 8.7 mg/dL 8.5-10.1 [facility] Serum or plasma creatinine m easurement (mass/volume)Ordered By: Андрей Cooley on 05-19-2023 Creatinine [Mass/Vol] 1.18 mg/dL 0.70-1.30 [facility] Comment on above: The validity of the calculated GFR & GFRAA in patients over 70 years has not been determined. Clinical correlation is essential. Serum or plasma urea nitroge n measurement (mass/volume)Ordered By: Андрей Cooley on 05-19-2023 Urea nitrogen [Mass/Vol] 22 mg/dL 7-18 [facility] Thin prep Papanicolaou smear with manual screeningOrdered By: Андрей Cooley on 05-19-2023 Thin prep Papanicolaou smear with manual screening 17 U/L 15-37 [facility] Thin prep Papanicolaou smear with manual screening 3 5-15 [facility] Basophil percentageOrdered B y: Андрей Cooley on 04-19-2023 Basophil percentage 92 mg/dL 74-106 [facility] Basophil percentage 6.8 g/dL 6.4-8.2 [facility] Basophil percentage 0.20 mg/dL 0.20-1.00 [facility] Basophil percentage 140 mmol/L 136-145 [facility] Basophil percentage 4.0 mmol/L 3.5-5.1 [facility] Basophil percentage 105 mmol/L 98-107 [facility] Basophils (Bld) [#/Vol] 6.2 10*3/uL 4.4-11.0 [facility] Bilirubin [Mass/Vol] 0.20 mg/dL 0.20-1.00 [facility] Comment on above: For patients on eltr ombopag therapy, use of Dimension [place] TBIL is not recommended. Chloride [Moles/Vol] 105 mmol/L 98-107 [facility] Glucose [Mass/Vol] 92 mg/dL 74-106 [facility] Potassium [Moles/Vol] 4.0 mmol/L 3.5-5.1 [facility] Protein [Mass/Vol] 6.8 g/dL 6.4-8.2 [facility] Sodium [Moles/Vol] 140 mmol/L 136-145 [facility] WBC (Bld) [#/Vol] 6.2 10*3/uL 4.4-11.0 [facility] Blood erythrocytes count (nu mber/volume)Ordered By: Андрей Cooley on 04-19-2023 RBC (Bld) [#/Vol] 4.26 10*6/uL 4.6-6.2 [facility] Blood hemoglobin measurement (mass/volume)Ordered By: Андрей Cooley on 04-19-2023 Hemoglobin (Bld) [Mass/Vol] 13.6 g/dL 13.0-16.5 [facility] Blood platelet mean volumeOr dered By: Андрей Cooley on 04-19-2023 Platelet mean volume (Bld) [Entitic vol] 9.7 fL 6.2-12.0 [facility] Determination of erythrocyte mean corpuscular volume (MCV)Ordered By: Андрей Cooley on 04-19-2023 MCV (RBC) [Entitic vol] 99.5 fL 80-94 [facility] Hematocrit Auto (Bld) [Volum e fraction]Ordered By: Андрей Cooley on 04-19-2023 Hematocrit (Bld) [Volume fraction] 42.4 % 40-54 [facility] Laboratory - Chemistry and C hemistry - challengeOrdered By: Андрей Cooley on 04-19-2023 ALP [Catalytic activity/Vol] 82 U/L 45-117 [facility] ALT [Catalytic activity/Vol] 27 U/L 16-61 [facility] CO2 [Moles/Vol] 29.0 mmol/L 21.0-32.0 [facility] Globulin (S) [Mass/Vol] 3.5 g/dL 2.2-4.2 [facility] Urea nitrogen/Creatinine [Mass ratio] 22.2 mg/mg 10-20 [facility] Laboratory - Hematology and Cell countsOrdered By: Андрей Cooley on 04-19-2023 Erythrocyte distribution width (RBC) [Entitic vol] 51.8 fL 35.1-43.9 [facility] Erythrocyte distribution width (RBC) [Ratio] 14.4 % 11.6-14.6 [facility] MCH (RBC) [Entitic mass] 31.9 pg 27.0-32.0 [facility] MCHC Auto (RBC) [Mass/Vol]Or dered By: Андрей Cooley on 04-19-2023 MCHC (RBC) [Mass/Vol] 32.1 g/dL 32-36 [facility] No Panel InformationOrdered By: Андрей Cooley on 04-19-2023 Estimated GFR (MDRD) Amer 86 mL/min >60 [facility] Comment on above: GFR Calc Estimated GFR (MDRD) Non-Af Amer 71 mL/min >60 [facility] Comment on above: Non- GFR Calc 31.9 pg 27.0-32.0 [facility] 14.4 % 11.6-14.6 [facility] 51.8 fl 35.1-43.9 [facility] 71 mL/min >60 [facility] 86 mL/min >60 [facility] 22.2 RATIO 10-20 [facility] 3.5 g/dL 2.2-4.2 [facility] 82 U/L 45-117 [facility] 27 U/L 16-61 [facility] 29.0 mmol/L 21.0-32.0 [facility] Platelets bldOrdered By: Italia Cooley on 04-19-2023 Platelets (Bld) [#/Vol] 382 10*3/uL 150-450 [facility] Serum or plasma albumin luis urement (mass/volume)Ordered By: Андрей Cooley on 04-19-2023 Albumin [Mass/Vol] 3.3 g/dL 3.2-5.0 [facility] Serum or plasma albumin/glob ulin mass ratioOrdered By: Андрей Cooley on 04-19-2023 Albumin/Globulin [Mass ratio] 0.9 {ratio} 0.9-2.4 [facility] Serum or plasma calcium luis urement (mass/volume)Ordered By: Андрей Cooley on 04-19-2023 Calcium [Mass/Vol] 9.1 mg/dL 8.5-10.1 [facility] Serum or plasma creatinine m easurement (mass/volume)Ordered By: Андрей Cooley on 04-19-2023 Creatinine [Mass/Vol] 1.08 mg/dL 0.70-1.30 [facility] Comment on above: The validity of the calculated GFR & GFRAA in patients over 70 years has not been determined. Clinical correlation is essential. Serum or plasma urea nitroge n measurement (mass/volume)Ordered By: Андрей Cooley on 04-19-2023 Urea nitrogen [Mass/Vol] 24 mg/dL 7-18 [facility] Thin prep Papanicolaou smear with manual screeningOrdered By: Андрей Cooley on 04-19-2023 Thin prep Papanicolaou smear with manual screening 19 U/L 15-37 [facility] Thin prep Papanicolaou smear with manual screening 6 5-15 [facility] Whole blood hemoglobin A1c/t otal hemoglobin ratio (mass fraction)Ordered By: Андрей Cooley on 04-17-2023 HbA1c (Bld) [Mass fraction] 5.2 % 3.8-5.6 [facility] Comment on above: Normal < 5.7 % Predi abetic 5.7 - 6.4 % Diabetic >or= 6.5 % Please note range changes. Basophil percentageOrdered B y: Андрей Cooley on 04-12-2023 Basophil percentage 92 mg/dL 74-106 [facility] Basophil percentage 6.4 g/dL 6.4-8.2 [facility] Basophil percentage 0.10 mg/dL 0.20-1.00 [facility] Basophil percentage 139 mmol/L 136-145 [facility] Basophil percentage 4.1 mmol/L 3.5-5.1 [facility] Basophil percentage 107 mmol/L 98-107 [facility] Basophils (Bld) [#/Vol] 7.8 10*3/uL 4.4-11.0 [facility] Bilirubin [Mass/Vol] 0.10 mg/dL 0.20-1.00 [facility] Comment on above: For patients on eltr ombopag therapy, use of Dimension [place] TBIL is not recommended. Chloride [Moles/Vol] 107 mmol/L 98-107 [facility] Glucose [Mass/Vol] 92 mg/dL 74-106 [facility] Potassium [Moles/Vol] 4.1 mmol/L 3.5-5.1 [facility] Protein [Mass/Vol] 6.4 g/dL 6.4-8.2 [facility] Sodium [Moles/Vol] 139 mmol/L 136-145 [facility] WBC (Bld) [#/Vol] 7.8 10*3/uL 4.4-11.0 [facility] Blood erythrocytes count (nu mber/volume)Ordered By: Андрей Cooley on 04-12-2023 RBC (Bld) [#/Vol] 4.04 10*6/uL 4.6-6.2 [facility] Blood hemoglobin measurement (mass/volume)Ordered By: Андрей Cooley on 04-12-2023 Hemoglobin (Bld) [Mass/Vol] 13.2 g/dL 13.0-16.5 [facility] Blood platelet mean volumeOr dered By: Андрей Cooley on 04-12-2023 Platelet mean volume (Bld) [Entitic vol] 9.7 fL 6.2-12.0 [facility] Determination of erythrocyte mean corpuscular volume (MCV)Ordered By: Андрей Cooley on 04-12-2023 MCV (RBC) [Entitic vol] 97.5 fL 80-94 [facility] Hematocrit Auto (Bld) [Volum e fraction]Ordered By: Андрей Cooley on 04-12-2023 Hematocrit (Bld) [Volume fraction] 39.4 % 40-54 [facility] Laboratory - Chemistry and C hemistry - challengeOrdered By: Андрей Cooley on 04-12-2023 ALP [Catalytic activity/Vol] 88 U/L 45-117 [facility] ALT [Catalytic activity/Vol] 32 U/L 16-61 [facility] CO2 [Moles/Vol] 26.0 mmol/L 21.0-32.0 [facility] Globulin (S) [Mass/Vol] 3.4 g/dL 2.2-4.2 [facility] Urea nitrogen/Creatinine [Mass ratio] 20.2 mg/mg - [facility] Laboratory - Hematology and Cell countsOrdered By: Андрей Cooley on 04-12-2023 Erythrocyte distribution width (RBC) [Entitic vol] 49.3 fL 35.1-43.9 [facility] Erythrocyte distribution width (RBC) [Ratio] 13.8 % 11.6-14.6 [facility] MCH (RBC) [Entitic mass] 32.7 pg 27.0-32.0 [facility] MCHC Auto (RBC) [Mass/Vol]Or dered By: Андрей Cooley on 04-12-2023 MCHC (RBC) [Mass/Vol] 33.5 g/dL 32-36 [facility] No Panel InformationOrdered By: Андрей Cooley on 04-12-2023 Estimated GFR (MDRD) Amer 77 mL/min >60 [facility] Comment on above: GFR Calc Estimated GFR (MDRD) Non-Af Amer 64 mL/min >60 [facility] Comment on above: Non- GFR Calc 32.7 pg 27.0-32.0 [facility] 13.8 % 11.6-14.6 [facility] 49.3 fl 35.1-43.9 [facility] 64 mL/min >60 [facility] 77 mL/min >60 [facility] 20.2 RATIO 04-07 [facility] 3.4 g/dL 2.2-4.2 [facility] 88 U/L 45-117 [facility] 32 U/L 16-61 [facility] 26.0 mmol/L 21.0-32.0 [facility] Platelets bldOrdered By: Italia Cooley on 04-12-2023 Platelets (Bld) [#/Vol] 385 10*3/uL 150-450 [facility] Serum or plasma albumin luis urement (mass/volume)Ordered By: Андрей Cooley on 04-12-2023 Albumin [Mass/Vol] 3.0 g/dL 3.2-5.0 [facility] Serum or plasma albumin/glob ulin mass ratioOrdered By: Андрей Cooley on 04-12-2023 Albumin/Globulin [Mass ratio] 0.9 {ratio} 0.9-2.4 [facility] Serum or plasma calcium luis urement (mass/volume)Ordered By: Андрей Cooley on 04-12-2023 Calcium [Mass/Vol] 8.7 mg/dL 8.5-10.1 [facility] Serum or plasma creatinine m easurement (mass/volume)Ordered By: Андрей Cooley on 04-12-2023 Creatinine [Mass/Vol] 1.19 mg/dL 0.70-1.30 [facility] Comment on above: The validity of the calculated GFR & GFRAA in patients over 70 years has not been determined. Clinical correlation is essential. Serum or plasma urea nitroge n measurement (mass/volume)Ordered By: Андрей Cooley on 04-12-2023 Urea nitrogen [Mass/Vol] 24 mg/dL 7-18 [facility] Thin prep Papanicolaou smear with manual screeningOrdered By: Андрей Cooley on 04-12-2023 Thin prep Papanicolaou smear with manual screening 21 U/L 15-37 [facility] Thin prep Papanicolaou smear with manual screening 6 5-15 [facility] Basophil percentageOrdered B y: Андрей Cooley on 04-05-2023 Basophil percentage 105 mg/dL 74-106 [facility] Basophil percentage 6.7 g/dL 6.4-8.2 [facility] Basophil percentage 0.20 mg/dL 0.20-1.00 [facility] Basophil percentage 139 mmol/L 136-145 [facility] Basophil percentage 3.9 mmol/L 3.5-5.1 [facility] Basophil percentage 105 mmol/L 98-107 [facility] Basophils (Bld) [#/Vol] 5.8 10*3/uL 4.4-11.0 [facility] Bilirubin [Mass/Vol] 0.20 mg/dL 0.20-1.00 [facility] Comment on above: For patients on eltr ombopag therapy, use of Dimension [place] TBIL is not recommended. Chloride [Moles/Vol] 105 mmol/L 98-107 [facility] Glucose [Mass/Vol] 105 mg/dL 74-106 [facility] Comment on above: Fasting Glucose resu lt from 100 to 125 mg/dL suggests IMPAIRED HOMEOSTASIS per A.D.A. criteria. Potassium [Moles/Vol] 3.9 mmol/L 3.5-5.1 [facility] Protein [Mass/Vol] 6.7 g/dL 6.4-8.2 [facility] Sodium [Moles/Vol] 139 mmol/L 136-145 [facility] WBC (Bld) [#/Vol] 5.8 10*3/uL 4.4-11.0 [facility] Blood erythrocytes count (nu mber/volume)Ordered By: Андрей Cooley on 04-05-2023 RBC (Bld) [#/Vol] 4.40 10*6/uL 4.6-6.2 [facility] Blood hemoglobin measurement (mass/volume)Ordered By: Андрей Cooley on 04-05-2023 Hemoglobin (Bld) [Mass/Vol] 13.9 g/dL 13.0-16.5 [facility] Blood platelet mean volumeOr dered By: Андрей Cooley on 04-05-2023 Platelet mean volume (Bld) [Entitic vol] 9.5 fL 6.2-12.0 [facility] Determination of erythrocyte mean corpuscular volume (MCV)Ordered By: Андрей Cooley on 04-05-2023 MCV (RBC) [Entitic vol] 96.8 fL 80-94 [facility] Hematocrit Auto (Bld) [Volum e fraction]Ordered By: Андрей Cooley on 04-05-2023 Hematocrit (Bld) [Volume fraction] 42.6 % 40-54 [facility] Laboratory - Chemistry and C hemistry - challengeOrdered By: Андрей Cooley on 04-05-2023 ALP [Catalytic activity/Vol] 60 U/L 45-117 [facility] ALT [Catalytic activity/Vol] 54 U/L 16-61 [facility] CO2 [Moles/Vol] 28.0 mmol/L 21.0-32.0 [facility] Globulin (S) [Mass/Vol] 3.8 g/dL 2.2-4.2 [facility] Urea nitrogen/Creatinine [Mass ratio] 22.0 mg/mg 10- [facility] Laboratory - Hematology and Cell countsOrdered By: Андрей Cooley on 04-05-2023 Erythrocyte distribution width (RBC) [Entitic vol] 50.1 fL 35.1-43.9 [facility] Erythrocyte distribution width (RBC) [Ratio] 14.0 % 11.6-14.6 [facility] MCH (RBC) [Entitic mass] 31.6 pg 27.0-32.0 [facility] MCHC Auto (RBC) [Mass/Vol]Or dered By: Андрей Cooley on 04-05-2023 MCHC (RBC) [Mass/Vol] 32.6 g/dL 32-36 [facility] No Panel InformationOrdered By: Андрей Cooley on 04-05-2023 Estimated GFR (MDRD) Amer 85 mL/min >60 [facility] Comment on above: GFR Calc Estimated GFR (MDRD) Non-Af Amer 70 mL/min >60 [facility] Comment on above: Non- GFR Calc 31.6 pg 27.0-32.0 [facility] 14.0 % 11.6-14.6 [facility] 50.1 fl 35.1-43.9 [facility] 70 mL/min >60 [facility] 85 mL/min >60 [facility] 22.0 RATIO 04-07 [facility] 3.8 g/dL 2.2-4.2 [facility] 60 U/L 45-117 [facility] 54 U/L 16-61 [facility] 28.0 mmol/L 21.0-32.0 [facility] Platelets bldOrdered By: Italia Cooley on 04-05-2023 Platelets (Bld) [#/Vol] 399 10*3/uL 150-450 [facility] Serum or plasma albumin luis urement (mass/volume)Ordered By: Андрей Cooley on 04-05-2023 Albumin [Mass/Vol] 2.9 g/dL 3.2-5.0 [facility] Serum or plasma albumin/glob ulin mass ratioOrdered By: Андрей Cooley on 04-05-2023 Albumin/Globulin [Mass ratio] 0.8 {ratio} 0.9-2.4 [facility] Serum or plasma calcium luis urement (mass/volume)Ordered By: Андрей Cooley on 04-05-2023 Calcium [Mass/Vol] 9.3 mg/dL 8.5-10.1 [facility] Serum or plasma creatinine m easurement (mass/volume)Ordered By: Андрей Cooley on 04-05-2023 Creatinine [Mass/Vol] 1.09 mg/dL 0.70-1.30 [facility] Comment on above: The validity of the calculated GFR & GFRAA in patients over 70 years has not been determined. Clinical correlation is essential. Serum or plasma urea nitroge n measurement (mass/volume)Ordered By: Андрей Cooley on 04-05-2023 Urea nitrogen [Mass/Vol] 24 mg/dL 7-18 [facility] Thin prep Papanicolaou smear with manual screeningOrdered By: Андрей Cooley on 04-05-2023 Thin prep Papanicolaou smear with manual screening 38 U/L 15-37 [facility] Thin prep Papanicolaou smear with manual screening 6 5-15 [facility] Absolute lymphocyte countOrd ered By: Frankie Galindo on 04-04-2023 Lymphocytes Auto (Unsp spec) [#/Vol] 1.49 10*3/uL 0.83-4.51 [facility] Basophil percentageOrdered B y: Frankie Galindo on 04-04-2023 Basophil percentage 101 mg/dL 74-106 [facility] Basophil percentage 136 mmol/L 136-145 [facility] Basophil percentage 3.9 mmol/L 3.5-5.1 [facility] Basophil percentage 103 mmol/L 98-107 [facility] Basophils (Bld) [#/Vol] 6.3 10*3/uL 4.4-11.0 [facility] Basophils (Bld) [#/Vol] 4.1 10*3/uL 2.0-7.7 [facility] Basophils/100 WBC (Bld) 1.1 % 0-1 [facility] Basophils/100 WBC (Bld) 64.4 % 47-70 [facility] Basophils/100 WBC (Bld) 3.3 % 0-5 [facility] Chloride [Moles/Vol] 103 mmol/L 98-107 [facility] Eosinophils/100 WBC (Bld) 3.3 % 0-5 [facility] Glucose [Mass/Vol] 101 mg/dL 74-106 [facility] Comment on above: Fasting Glucose resu lt from 100 to 125 mg/dL suggests IMPAIRED HOMEOSTASIS per A.D.A. criteria. Neutrophils (Bld) [#/Vol] 4.1 10*3/uL 2.0-7.7 [facility] Neutrophils/100 WBC (Bld) 64.4 % 47-70 [facility] Potassium [Moles/Vol] 3.9 mmol/L 3.5-5.1 [facility] Sodium [Moles/Vol] 136 mmol/L 136-145 [facility] WBC (Bld) [#/Vol] 6.3 10*3/uL 4.4-11.0 [facility] Blood erythrocytes count (nu mber/volume)Ordered By: Frankie Galindo on 04-04-2023 RBC (Bld) [#/Vol] 4.82 10*6/uL 4.6-6.2 [facility] Blood hemoglobin measurement (mass/volume)Ordered By: Frankie Galindo on 04-04-2023 Hemoglobin (Bld) [Mass/Vol] 15.1 g/dL 13.0-16.5 [facility] Blood lymphocytes/100 leukoc ytesOrdered By: Frankie Galindo on 04-04-2023 Lymphocytes/100 WBC (Bld) 23.6 % 19-41 [facility] Blood monocytes/100 leukocyt esOrdered By: Frankie Galindo on 04-04-2023 Monocytes/100 WBC (Bld) 6.3 % 0-10 [facility] [facility] Blood platelet mean volumeOr dered By: Frankie Galindo on 04-04-2023 Platelet mean volume (Bld) [Entitic vol] 9.3 fL 6.2-12.0 [facility] Determination of erythrocyte mean corpuscular volume (MCV)Ordered By: Frankie Galindo on 04-04-2023 MCV (RBC) [Entitic vol] 96.7 fL 80-94 [facility] Hematocrit Auto (Bld) [Volum e fraction]Ordered By: Frankie Galindo on 04-04-2023 Hematocrit (Bld) [Volume fraction] 46.6 % 40-54 [facility] Laboratory - Chemistry and C hemistry - challengeOrdered By: Frankie Galindo on 04-04-2023 CO2 [Moles/Vol] 29.0 mmol/L 21.0-32.0 [facility] Urea nitrogen/Creatinine [Mass ratio] 20.3 mg/mg 10-20 [facility] Laboratory - Hematology and Cell countsOrdered By: Frankie Galindo on 04-04-2023 Erythrocyte distribution width (RBC) [Entitic vol] 48.9 fL 35.1-43.9 [facility] Erythrocyte distribution width (RBC) [Ratio] 13.6 % 11.6-14.6 [facility] Immature granulocytes/100 WBC (Bld) 1.300 % 0.0-0.9 [facility] Comment on above: IG% - Immature Granu locytes (promyelocytes, myelocytes and metamyelocytes) > 1% indicates that a LEFT SHIFT is Present. MCH (RBC) [Entitic mass] 31.3 pg 27.0-32.0 [facility] Nucleated RBC/100 WBC (Bld) [Ratio] 0 % 0-5 [facility] MCHC Auto (RBC) [Mass/Vol]Or dered By: Frankie Galindo on 04-04-2023 MCHC (RBC) [Mass/Vol] 32.4 g/dL 32-36 [facility] No Panel InformationOrdered By: Frankie Galindo on 04-04-2023 Estimated Creatinine Clearance Calc 45.80 ml/min [facility] Estimated GFR (MDRD) Amer 71 mL/min >60 [facility] Comment on above: GFR Calc Estimated GFR (MDRD) Non-Af Amer 58 mL/min >60 [facility] Comment on above: Non- GFR Calc 31.3 pg 27.0-32.0 [facility] 13.6 % 11.6-14.6 [facility] 48.9 fl 35.1-43.9 [facility] 1.300 % 0.0-0.9 [facility] 0 % 0-5 [facility] 58 mL/min >60 [facility] 71 mL/min >60 [facility] 45.80 ml/min [facility] 20.3 RATIO 04-07 [facility] 29.0 mmol/L 21.0-32.0 [facility] Platelets bldOrdered By: Sebastien Galindo on 04-04-2023 Platelets (Bld) [#/Vol] 379 10*3/uL 150-450 [facility] Serum or plasma calcium luis urement (mass/volume)Ordered By: Frankie Galindo on 04-04-2023 Calcium [Mass/Vol] 9.7 mg/dL 8.5-10.1 [facility] Serum or plasma creatinine m easurement (mass/volume)Ordered By: Frankie Galindo on 04-04-2023 Creatinine [Mass/Vol] 1.28 mg/dL 0.70-1.30 [facility] Comment on above: The validity of the calculated GFR & GFRAA in patients over 70 years has not been determined. Clinical correlation is essential. Serum or plasma urea nitroge n measurement (mass/volume)Ordered By: Frankie Galindo on 04-04-2023 Urea nitrogen [Mass/Vol] 26 mg/dL 01-03 [facility] Thin prep Papanicolaou smear with manual screeningOrdered By: Frankie Galindo on 04-04-2023 Thin prep Papanicolaou smear with manual screening 4 10-31 [facility] Basophil percentageOrdered B y: Frankie Galindo on 04-02-2023 Basophil percentage 2.6 mg/dL 2.5-4.9 [facility] Laboratory - Chemistry and C hemistry - challengeOrdered By: Frankie Galindo on 04-02-2023 Magnesium [Mass/Vol] 2.0 mg/dL 1.6-2.6 [facility] No Panel InformationOrdered By: Frankie Galindo on 04-02-2023 2.0 mg/dL 1.6-2.6 [facility] Basophil percentageOrdered B y: Celia Toribio on 04-01-2023 Basophil percentage 6.5 g/dL 6.4-8.2 [facility] Basophil percentage 0.30 mg/dL 0.20-1.00 [facility] Bilirubin [Mass/Vol] 0.30 mg/dL 0.20-1.00 [facility] Comment on above: For patients on eltr ombopag therapy, use of Dimension [place] TBIL is not recommended. Protein [Mass/Vol] 6.5 g/dL 6.4-8.2 [facility] Laboratory - Chemistry and C hemistry - challengeOrdered By: Celia Toribio on 04-01-2023 ALP [Catalytic activity/Vol] 57 U/L 45-117 [facility] ALT [Catalytic activity/Vol] 21 U/L [facility] Globulin (S) [Mass/Vol] 3.9 g/dL 2.2-4.2 [facility] No Panel InformationOrdered By: Celia Toribio on 04-01-2023 3.9 g/dL 2.2-4.2 [facility] 57 U/L 45- [facility] 21 U/L [facility] Serum or plasma albumin luis urement (mass/volume)Ordered By: Celia Toribio on 04-01-2023 Albumin [Mass/Vol] 2.6 g/dL 3.2-5.0 [facility] Serum or plasma albumin/glob ulin mass ratioOrdered By: Celia Toribio on 04-01-2023 Albumin/Globulin [Mass ratio] 0.7 {ratio} 0.9-2.4 [facility] Thin prep Papanicolaou smear with manual screeningOrdered By: Celia Toribio on 04-01-2023 Thin prep Papanicolaou smear with manual screening 12 U/L 15-37 [facility] Absolute lymphocyte countOrd ered By: Huber Alvarado on 03-30-2023 Lymphocytes Auto (Unsp spec) [#/Vol] 0.93 10*3/uL 0.83-4.51 [facility] Bacteria identified Cx Nom ( U)Ordered By: Huber Alvarado on 03-30-2023 Culture, urine ESBL Escherichia coli [facility] Basophil percentageOrdered B y: Huber Alvarado on 03-30-2023 Basophil percentage 1.4 mmol/L 0.4-2.0 [facility] Lactate [Moles/Vol] 1.4 mmol/L 0.4-2.0 [facility] Basophil percentage 25-50 SEEN /hpf 0-5 [facility] Basophils/100 WBC (Bld) 0.7 % 0-1 [facility] Chloride [Moles/Vol] 99 mmol/L 98-107 [facility] Eosinophils/100 WBC (Bld) 0.0 % 0-5 [facility] Glucose [Mass/Vol] 104 mg/dL 74-106 [facility] Comment on above: Fasting Glucose resu lt from 100 to 125 mg/dL suggests IMPAIRED HOMEOSTASIS per A.D.A. criteria. Neutrophils (Bld) [#/Vol] 7.9 10*3/uL 2.0-7.7 [facility] Neutrophils/100 WBC (Bld) 79.2 % 47-70 [facility] Potassium [Moles/Vol] 4.0 mmol/L 3.5-5.1 [facility] Sodium [Moles/Vol] 134 mmol/L 136-145 [facility] WBC (Bld) [#/Vol] 10.0 10*3/uL 4.4-11.0 [facility] Bilirubin Test strip Ql (U)O rdered By: Huber Alvarado on 03-30-2023 Bilirubin Ql (U) Negative Negative [facility] Blood erythrocytes count (nu mber/volume)Ordered By: Huber Alvarado on 03-30-2023 RBC (Bld) [#/Vol] 4.81 10*6/uL 4.6-6.2 [facility] Blood hemoglobin measurement (mass/volume)Ordered By: Huber Alvarado on 03-30-2023 Hemoglobin (Bld) [Mass/Vol] 15.4 g/dL 13.0-16.5 [facility] Blood lymphocytes/100 leukoc ytesOrdered By: Huber Alvarado on 03-30-2023 Lymphocytes/100 WBC (Bld) 9.3 % 19-41 [facility] Blood monocytes/100 leukocyt esOrdered By: Huber Alvarado on 03-30-2023 Monocytes/100 WBC (Bld) 10.5 % 0-10 [facility] Blood platelet mean volumeOr dered By: Huber Alvarado on 03-30-2023 Platelet mean volume (Bld) [Entitic vol] 9.8 fL 6.2-12.0 [facility] Culture, urineOrdered By: Baldo Chan on 03-30-2023 Bacteria identified Cx Nom (U) ESBL Escherichia coli [facility] Bacteria identified Cx Nom (U) ESBL Escherichia coli [facility] Determination of erythrocyte mean corpuscular volume (MCV)Ordered By: Huber Alvarado on 03-30-2023 MCV (RBC) [Entitic vol] 97.5 fL 80-94 [facility] Hematocrit Auto (Bld) [Volum e fraction]Ordered By: Huber Alvarado on 03-30-2023 Hematocrit (Bld) [Volume fraction] 46.9 % 40-54 [facility] Ketones Test strip Ql (U)Ord ered By: Huber Alvarado on 03-30-2023 Ketones Ql (U) Negative Negative [facility] Laboratory - Chemistry and C hemistry - challengeOrdered By: Huber Alvarado on 03-30-2023 CO2 [Moles/Vol] 31.0 mmol/L 21.0-32.0 [facility] Urea nitrogen/Creatinine [Mass ratio] 16.0 mg/mg 10-20 [facility] Laboratory - Hematology and Cell countsOrdered By: Huber Alvarado on 03-30-2023 Erythrocyte distribution width (RBC) [Entitic vol] 50.3 fL 35.1-43.9 [facility] Erythrocyte distribution width (RBC) [Ratio] 13.9 % 11.6-14.6 [facility] Immature granulocytes/100 WBC (Bld) 0.300 % 0.0-0.9 [facility] Comment on above: IG% - Immature Granu locytes (promyelocytes, myelocytes and metamyelocytes) > 1% indicates that a LEFT SHIFT is Present. MCH (RBC) [Entitic mass] 32.0 pg 27.0-32.0 [facility] Nucleated RBC/100 WBC (Bld) [Ratio] 0 % 0-5 [facility] Laboratory - Microbiology an d Antimicrobial susceptibilityOrdered By: Huber Alvarado on 03-30-2023 Bacteria identified Cx Nom (Bld) No growth in 5 days. [facility] MCHC Auto (RBC) [Mass/Vol]Or dered By: Huber Alvarado on 03-30-2023 MCHC (RBC) [Mass/Vol] 32.8 g/dL 32-36 [facility] Mucus LM Ql (Urine sed)Order ed By: Huber Alvarado on 10-12-2023 Mucus Ql (Urine sed) 0 SEEN /hpf [facility] Nitrite Test strip Ql (U)Ord ered By: Huber Alvarado on 03-30-2023 Nitrite Ql (U) Negative Negative [facility] No Panel InformationOrdered By: Huber Alvarado on 03-30-2023 No growth in 5 days. [facility] Estimated GFR (MDRD) Amer 77 mL/min >60 [facility] Comment on above: GFR Calc Estimated GFR (MDRD) Non-Af Amer 64 mL/min >60 [facility] Comment on above: Non- GFR Calc Platelets bldOrdered By: Pet er Christiano on 03-30-2023 Platelets (Bld) [#/Vol] 276 10*3/uL 150-450 [facility] Protein Test strip Ql (U)Ord ered By: Huber Alvarado on 03-30-2023 Protein Ql (U) 100 mg/dl Negative [facility] Serum or plasma calcium luis urement (mass/volume)Ordered By: Huber Alvarado on 03-30-2023 Calcium [Mass/Vol] 9.8 mg/dL 8.5-10.1 [facility] Serum or plasma creatinine m easurement (mass/volume)Ordered By: Huber Alvarado on 03-30-2023 Creatinine [Mass/Vol] 1.19 mg/dL 0.70-1.30 [facility] Comment on above: The validity of the calculated GFR & GFRAA in patients over 70 years has not been determined. Clinical correlation is essential. Serum or plasma urea nitroge n measurement (mass/volume)Ordered By: Huber Alvarado on 03-30-2023 Urea nitrogen [Mass/Vol] 19 mg/dL 7-18 [facility] Squamous epithelial cells de tection in urine sediment by light microscopyOrdered By: Huber Alvarado on 03-30-2023 Epithelial cells.squamous LM Ql (Urine sed) 0-5 SEEN /hpf 0-5 [facility] Thin prep Papanicolaou smear with manual screeningOrdered By: Huber Alvarado on 03-30-2023 Thin prep Papanicolaou smear with manual screening 4 5-15 [facility] Urine blood detectionOrdered By: Huber Alvarado on 03-30-2023 RBC Ql (U) 50 /ul Negative [facility] RBC Ql (U) 0 SEEN /hpf 0-5 [facility] Urine clarityOrdered By: Beck Alvarado on 03-30-2023 Clarity (U) Sl. Cloudy Clear [facility] Urine color determinationOrd ered By: Huber Alvarado on 03-30-2023 Color (U) Yellow Yellow [facility] Urine glucose detectionOrder ed By: Huber Alvarado on 03-30-2023 Glucose Ql (U) Normal mg/dl Normal [facility] Urine leukocyte esterase det ection by dipstickOrdered By: Huber Alvarado on 03-30-2023 Leukocyte esterase Test strip Ql (U) 500 /ul Negative [facility] Urine pHOrdered By: Huber billingsley on 03-30-2023 pH (U) 6.0 [pH] 5.0 - 8.0 [facility] Urine sediment bacteria coun t by microscopy (number/high power field)Ordered By: Huber Alvarado on 03-30-2023 Bacteria LM.HPF (Urine sed) [#/Area] 3 /[HPF] None Seen [facility] Urine specific gravity measu rementOrdered By: Huber Alvarado on 03-30-2023 Specific gravity (U) [Rel density] 1.020 1.002-1.030 [facility] Urobilinogen Auto test strip Ql (U)Ordered By: Huber Alvarado on 03-30-2023 Urobilinogen Ql (U) Normal mg/dl Normal [facility] INR in Blood by Coagulation assayOrdered By: Jaden Jauregui on 02-18-2023 INR Coag (Bld) [Relative time] 0.9 {INR} [facility] Laboratory - CoagulationOrde red By: Jaden Jauregui on 02-18-2023 PT Coag (PPP) [Time] 12.4 s 11.7-14.[address] [facility] [address] ABD/PELVIS W/ IV CONTRAST ONLYon [...] 10/22/2022 10:33:36 PM Ordering Provider: PRIYANKA Betts [facility] ([place]) .Auto Diffon 10-22-2022 Basophil, Absolute 0.1 10 3/mcL Normal 0.0-0.2 [facility] ([place] Comment on above: Performed By: #### A DIFF, LIP, MDW, CMP, GFR, ANEU, CBC #### [address] [address] Basophils/100 WBC (Bld) 0.8 % Normal 0.0-2.5 A [facility] ([place]) Comment on above: Performed By: #### A DIFF, LIP, MDW, CMP, GFR, ANEU, CBC #### [address] [address] Eosinophil, Absolute 0.0 10 3/mcL Normal 0.0-0.4 [facility] ([place]) Comment on above: Performed By: #### A DIFF, LIP, MDW, CMP, GFR, ANEU, CBC #### [address] [address] Eosinophils/100 WBC (Bld) 0.3 % Normal 0.0-7.0 [facility] ([place] Comment on above: Performed By: #### A DIFF, LIP, MDW, CMP, GFR, ANEU, CBC #### [address] [address] Lymphocyte, Absolute 0.9 10 3/mcL Normal 0.8-3.9 [facility] ([place] Comment on above: Performed By: #### A DIFF, LIP, MDW, CMP, GFR, ANEU, CBC #### [address] [address] Lymphocytes/100 WBC (Bld) 8.1 % Low 10.0-50.0 [facility] ([place] Comment on above: Performed By: #### A DIFF, LIP, MDW, CMP, GFR, ANEU, CBC #### [address] [address] Monocyte, Absolute 0.7 10 3/mcL Normal 0.2-1.0 [facility] [place] Comment on above: Performed By: #### A DIFF, LIP, MDW, CMP, GFR, ANEU, CBC #### [address] [address] Monocytes/100 WBC (Bld) 6.8 % Normal 1.7-13.0 [facility] ([place] Comment on above: Performed By: #### A DIFF, LIP, MDW, CMP, GFR, ANEU, CBC #### [address] [address] Neutrophils/100 WBC (Bld) 84.0 % High 37.0-80.0 [facility] ([place] Comment on above: Performed By: #### A DIFF, LIP, MDW, CMP, GFR, ANEU, CBC #### [address] [address] .GFRon 10-22-2022 GFR Non- 58 ml/min/1.73sqm Normal [facility] ([place] Comment on above: Result Comment: GFR Population [...] MDW, CMP, GFR, ANEU, CBC #### [address] [address] GFR 71 ml/min/1.73sqm Normal [facility] ([place] Comment on above: Result Comment: GFR Population [...] LIP, MDW, CMP, GFR, ANEU, CBC #### [place] [address] .MDWon 10-22-2022 Monocyte Distribution Width 24.33 High 0.00-20.00 [facility] ([place] Comment on above: Result Comment: For adults in ED, MDW>20.0 may be associated with a higher risk of sepsis during the first 12hrs of hospital admission Performed By: #### A DIFF, LIP, MDW, CMP, GFR, ANEU, CBC #### [place] [address] .NEUABSon 10-22-2022 Neutrophil, Absolute 8.9 10 3/mcL High 2.9-6.2 [facility] ([place] Comment on above: Performed By: #### A DIFF, LIP, MDW, CMP, GFR, ANEU, CBC #### [place] [address] CBCon 10-22-2022 Erythrocyte distribution width (RBC) [Ratio] 14.0 % Normal 11.5-14.5 [facility] ([place] Comment on above: Performed By: #### A DIFF, LIP, MDW, CMP, GFR, ANEU, CBC #### [place] [address] Hematocrit (Bld) [Volume fraction] 38.9 % Low 42.0-52.0 [facility] ([place] Comment on above: Performed By: #### A DIFF, LIP, MDW, CMP, GFR, ANEU, CBC #### [place] [address] Hgb 13.5 G/dL Low 14.0-18.0 [facility] ([place] Comment on above: Performed By: #### A DIFF, LIP, MDW, CMP, GFR, ANEU, CBC #### [address] [address] MCH (RBC) [Entitic mass] 33.0 pg High 27.0-31.2 [facility] ([place] Comment on above: Performed By: #### A DIFF, LIP, MDW, CMP, GFR, ANEU, CBC #### [place] [address] MCHC 34.8 G/dL Normal 31.8-35.4 [facility] ([place] Comment on above: Performed By: #### A DIFF, LIP, MDW, CMP, GFR, ANEU, CBC #### [address] [address] MCV (RBC) [Entitic vol] 95.0 fL High 80.0-94.0 A [facility] ([place] Comment on above: Performed By: #### A DIFF, LIP, MDW, CMP, GFR, ANEU, CBC #### [address] [address] Platelet 344 10 3/mcL Normal 130-400 [facility] ([place] Comment on above: Performed By: #### A DIFF, LIP, MDW, CMP, GFR, ANEU, CBC #### [address] [address] Platelet mean volume (Bld) [Entitic vol] 7.1 fL Low 7.4-10.4 [facility] ([place] Comment on above: Performed By: #### A DIFF, LIP, MDW, CMP, GFR, ANEU, CBC #### [address] [address] RBC 4.10 10 6/mcL Normal 4.04-6.13 [facility] ([place] Comment on above: Performed By: #### A DIFF, LIP, MDW, CMP, GFR, ANEU, CBC #### [address] [address] WBC 10.6 10 3/mcL Normal 4.6-10.8 [facility] ([place] Comment on above: Performed By: #### A DIFF, LIP, MDW, CMP, GFR, ANEU, CBC #### [address] [address] CMPon 10-22-2022 Albumin Level 2.9 G/dL Low 3.4-4.8 [facility] ([place] Comment on above: Performed By: #### A DIFF, LIP, MDW, CMP, GFR, ANEU, CBC #### [address] [address] Albumin/Globulin [Mass ratio] 0.8 {ratio} Low 1.1-2.5 [facility] ([place] Comment on above: Performed By: #### A DIFF, LIP, MDW, CMP, GFR, ANEU, CBC #### [address] [address] ALP [Catalytic activity/Vol] 98 U/L Normal 40-135 [facility] ([place] Comment on above: Performed By: #### A DIFF, LIP, MDW, CMP, GFR, ANEU, CBC #### [address] [address] ALT [Catalytic activity/Vol] 46 U/L Normal 16-63 [facility] ([place] Comment on above: Performed By: #### A DIFF, LIP, MDW, CMP, GFR, ANEU, CBC #### [address] [address] AST [Catalytic activity/Vol] 29 U/L Normal 10-40 [facility] ([place] Comment on above: Performed By: #### A DIFF, LIP, MDW, CMP, GFR, ANEU, CBC #### [address] [address] Bili Total 0.3 mg/dL Normal 0.2-1.0 [facility] ([place] Comment on above: Result Comment: Use of this assay is not recommended for patients undergoing treatment with eltrombopag due to the potential for falsely elevated results. Performed By: #### A DIFF, LIP, MDW, CMP, GFR, ANEU, CBC #### [address] [address] BUN/Creatinine Ratio 17 ratio Normal 7-27 [facility] [place] Comment on above: Performed By: #### A DIFF, LIP, MDW, CMP, GFR, ANEU, CBC #### [address] [address] Calcium [Mass/Vol] 9.2 mg/dL Normal 8.4-10.2 [facility] [place] Comment on above: Performed By: #### A DIFF, LIP, MDW, CMP, GFR, ANEU, CBC #### [address] [address] Chloride [Moles/Vol] 96 mmol/L Low 98-107 [facility] [place] Comment on above: Performed By: #### A DIFF, LIP, MDW, CMP, GFR, ANEU, CBC #### [address] [address] CO2 [Moles/Vol] 33 mmol/L High 23-31 [facility] ([place] Comment on above: Performed By: #### A DIFF, LIP, MDW, CMP, GFR, ANEU, CBC #### [address] [address] Creatinine [Mass/Vol] 1.22 mg/dL Normal 0.70-1.30 Counts include 234 beds at the [facility] ([place]) Comment on above: Performed By: #### A DIFF, LIP, MDW, CMP, GFR, ANEU, CBC #### [address] [address] Electrolyte Balance 5.0 mEq/L Normal 4.0-15.0 [facility] ([place] Comment on above: Performed By: #### A DIFF, LIP, MDW, CMP, GFR, ANEU, CBC #### [address] [address] Globulin 3.5 G/dL Normal [facility] ([place] Comment on above: Performed By: #### A DIFF, LIP, MDW, CMP, GFR, ANEU, CBC #### [address] [address] Glucose [Mass/Vol] 111 mg/dL High 83-110 [facility] [place] Comment on above: Performed By: #### A DIFF, LIP, MDW, CMP, GFR, ANEU, CBC #### [address] [address] Potassium [Moles/Vol] 4.3 mmol/L Normal 3.5-5.1 Counts include 234 beds at the [facility] ([place] Comment on above: Performed By: #### A DIFF, LIP, MDW, CMP, GFR, ANEU, CBC #### [address] [address] Sodium [Moles/Vol] 134 mmol/L Low 136-145 [facility] [place] Comment on above: Performed By: #### A DIFF, LIP, MDW, CMP, GFR, ANEU, CBC #### [address] [address] Total Protein 6.4 G/dL Normal 6.4-8.2 [facility] ([place] Comment on above: Performed By: #### A DIFF, LIP, MDW, CMP, GFR, ANEU, CBC #### [address] [address] Urea nitrogen [Mass/Vol] 21 mg/dL High 7-18 [facility] ([place] Comment on above: Performed By: #### A DIFF, LIP, MDW, CMP, GFR, ANEU, CBC #### [address] [address] LABORATORYOrdered By: SYSTEM SYSTEM on 10-22-2022 Albumin [...] 10-22-2022 Lipase Level 32 U/L Normal 16-77 [facility] ([place] Comment on above: Performed By: #### A DIFF, LIP, MDW, CMP, GFR, ANEU, CBC #### [place] [id number] [place], [place] [address] Absolute lymphocyte countOrd ered By: Dr. Jauregui on 10-21-2022 Lymphocytes Auto (Unsp spec) [#/Vol] 0.85 10*3/uL 0.83-4.51 [facility] Basophil percentageOrdered B y: Dr. Jauregui on 10-21-2022 Basophil percentage 25-50 SEEN /hpf 0-5 [facility] Basophils/100 WBC (Bld) 0.6 % 0-1 [facility] Bilirubin [Mass/Vol] 0.30 mg/dL 0.20-1.00 [facility] Comment on above: For patients on eltr ombopag therapy, use of Dimension [place] TBIL is not recommended. Chloride [Moles/Vol] 99 mmol/L 98-107 [facility] Eosinophils/100 WBC (Bld) 0.4 % 0-5 [facility] Glucose [Mass/Vol] 104 mg/dL 74-106 [facility] Comment on above: Fasting Glucose resu lt from 100 to 125 mg/dL suggests IMPAIRED HOMEOSTASIS per A.D.A. criteria. Neutrophils (Bld) [#/Vol] 8.8 10*3/uL 2.0-7.7 [facility] Neutrophils/100 WBC (Bld) 84.2 % 47-70 [facility] Potassium [Moles/Vol] 3.6 mmol/L 3.5-5.1 [facility] Protein [Mass/Vol] 7.2 g/dL 6.4-8.2 [facility] Sodium [Moles/Vol] 135 mmol/L 136-145 [facility] WBC (Bld) [#/Vol] 10.4 10*3/uL 4.4-11.0 [facility] Bilirubin Test strip Ql (U)O rdered By: Dr. Jauregui on 10-21-2022 Bilirubin Ql (U) Negative Negative [facility] Blood erythrocytes count (nu mber/volume)Ordered By: Dr. Jauregui on 10-21-2022 RBC (Bld) [#/Vol] 4.51 10*6/uL 4.6-6.2 [facility] Blood hemoglobin measurement (mass/volume)Ordered By: Dr. Jauregui on 10-21-2022 Hemoglobin (Bld) [Mass/Vol] 14.4 g/dL 13.0-16.5 [facility] Blood lymphocytes/100 leukoc ytesOrdered By: Dr. Jauregui on 10-21-2022 Lymphocytes/100 WBC (Bld) 8.2 % 19-41 [facility] Blood monocytes/100 leukocyt esOrdered By: Dr. Jauregui on 10-21-2022 Monocytes/100 WBC (Bld) 5.4 % 0-10 [facility] Blood platelet mean volumeOr dered By: Dr. Jauregui on 10-21-2022 Platelet mean volume (Bld) [Entitic vol] 8.9 fL 6.2-12.0 [facility] Culture, urineOrdered By: Joseph Jauregui on 10-21-2022 Bacteria identified Cx Nom (U) Presumptive E. coli [facility] Determination of erythrocyte mean corpuscular volume (MCV)Ordered By: Dr. Jauregui on 10-21-2022 MCV (RBC) [Entitic vol] 95.6 fL 80-94 [facility] Hematocrit Auto (Bld) [Volum e fraction]Ordered By: Dr. Jauregui on 10-21-2022 Hematocrit (Bld) [Volume fraction] 43.1 % 40-54 [facility] Ketones Test strip Ql (U)Ord ered By: Dr. Jauregui on 10-21-2022 Ketones Ql (U) Negative Negative [facility] Laboratory - Chemistry and C hemistry - challengeOrdered By: Dr. Jauregui on 10-21-2022 ALP [Catalytic activity/Vol] 84 U/L 45-117 [facility] ALT [Catalytic activity/Vol] 41 U/L 16-61 [facility] CO2 [Moles/Vol] 28.0 mmol/L 21.0-32.0 [facility] Globulin (S) [Mass/Vol] 4.2 g/dL 2.2-4.2 [facility] Lipase [Catalytic activity/Vol] 42 U/L 13-75 [facility] Comment on above: Please note:LIPASE r evised reference range effective 22. New Lipase methodology. Expected to produce lower values than the previous assay method. NEW Reference Range: 13 - 75 U/L Urea nitrogen/Creatinine [Mass ratio] 16.3 mg/mg 10-20 [facility] Laboratory - Hematology and Cell countsOrdered By: Dr. Jauregui on 10-21-2022 Erythrocyte distribution width (RBC) [Entitic vol] 45.7 fL 35.1-43.9 [facility] Erythrocyte distribution width (RBC) [Ratio] 13.0 % 11.6-14.6 [facility] Immature granulocytes/100 WBC (Bld) 1.200 % 0.0-0.9 [facility] Comment on above: IG% - Immature Granu locytes (promyelocytes, myelocytes and metamyelocytes) > 1% indicates that a LEFT SHIFT is Present. MCH (RBC) [Entitic mass] 31.9 pg 27.0-32.0 [facility] Nucleated RBC/100 WBC (Bld) [Ratio] 0 % 0-5 [facility] MCHC Auto (RBC) [Mass/Vol]Or dered By: Dr. Jauregui on 10-21-2022 MCHC (RBC) [Mass/Vol] 33.4 g/dL 32-36 [facility] Mucus LM Ql (Urine sed)Order ed By: Dr. Jauregui on 10-21-2022 Mucus Ql (Urine sed) 0 SEEN /hpf [facility] Nitrite Test strip Ql (U)Ord ered By: Dr. Jauregui on 10-21-2022 Nitrite Ql (U) Negative Negative [facility] No Panel InformationOrdered By: Dr. Jauregui on 10-21-2022 Estimated GFR (MDRD) Amer 90 mL/min >60 [facility] Comment on above: GFR Calc Estimated GFR (MDRD) Non-Af Amer 74 mL/min >60 [facility] Comment on above: Non- GFR Calc Platelets bldOrdered By: Dr. Jauregui on 10-21-2022 Platelets (Bld) [#/Vol] 339 10*3/uL 150-450 [facility] Protein Test strip Ql (U)Ord ered By: Dr. Jauregui on 10-21-2022 Protein Ql (U) 100 mg/dl Negative [facility] Serum or plasma albumin luis urement (mass/volume)Ordered By: Dr. Jauregui on 10-21-2022 Albumin [Mass/Vol] 3.0 g/dL 3.2-5.0 [facility] Serum or plasma albumin/glob ulin mass ratioOrdered By: Dr. Jauregui on 10-21-2022 Albumin/Globulin [Mass ratio] 0.7 {ratio} 0.9-2.4 [facility] Serum or plasma calcium luis urement (mass/volume)Ordered By: Dr. Jauregui on 10-21-2022 Calcium [Mass/Vol] 9.8 mg/dL 8.5-10.1 [facility] Serum or plasma creatinine m easurement (mass/volume)Ordered By: Dr. Jauregui on 10-21-2022 Creatinine [Mass/Vol] 1.04 mg/dL 0.70-1.30 [facility] Comment on above: The validity of the calculated GFR & GFRAA in patients over 70 years has not been determined. Clinical correlation is essential. Serum or plasma urea nitroge n measurement (mass/volume)Ordered By: Dr. Jauregui on 10-21-2022 Urea nitrogen [Mass/Vol] 17 mg/dL 7-18 [facility] Squamous epithelial cells de tection in urine sediment by light microscopyOrdered By: Dr. Jauregui on 10-21-2022 Epithelial cells.squamous LM Ql (Urine sed) 0-5 SEEN /hpf 0-5 [facility] Thin prep Papanicolaou smear with manual screeningOrdered By: Dr. Jauregui on 10-21-2022 Thin prep Papanicolaou smear with manual screening 20 U/L 15-37 [facility] Thin prep Papanicolaou smear with manual screening 8 5-15 [facility] Urine blood detectionOrdered By: Dr. Jauregui on 10-21-2022 RBC Ql (U) 50 /ul Negative [facility] RBC Ql (U) 0 SEEN /hpf 0-5 [facility] Urine clarityOrdered By: Dr. Jauregui on 10-21-2022 Clarity (U) Sl. Cloudy Clear [facility] Urine color determinationOrd ered By: Dr. Jauregui on 10-21-2022 Color (U) Yellow Yellow [facility] Urine glucose detectionOrder ed By: Dr. Jauregui on 10-21-2022 Glucose Ql (U) Normal mg/dl Normal [facility] Urine leukocyte esterase det ection by dipstickOrdered By: Dr. Jauregui on 10-21-2022 Leukocyte esterase Test strip Ql (U) 500 /ul Negative [facility] Urine pHOrdered By: Dr. Babs mckeon on 10-21-2022 pH (U) 6.0 [pH] 5.0 - 8.0 [facility] Urine sediment bacteria coun t by microscopy (number/high power field)Ordered By: Dr. Jauregui on 10-21-2022 Bacteria LM.HPF (Urine sed) [#/Area] 2 /[HPF] None Seen [facility] Urine specific gravity measu rementOrdered By: Dr. Jauregui on 10-21-2022 Specific gravity (U) [Rel density] 1.010 1.002-1.030 [facility] Urobilinogen Auto test strip Ql (U)Ordered By: Dr. Jauregui on 10-21-2022 Urobilinogen Ql (U) Normal mg/dl Normal [facility] No Panel InformationOrdered By: Андрей Cooley on 08-11-2022 Miscellaneous Test See comment [facility] Comment on above: TEST RESULT LIMITSCa rbamazepine(Tegretol), S 7.1 ug/mL 4.0-12.0 In conjunction with other antiepileptic drugs Therapeutic 4.0 - 8.0 Toxicity 9.0 - 12.0 Carbamazepine alone Therapeutic 8.0 - 12.0 Detection Limit = 2.0 <2.0 indicated None Detected Verified by repeat analysis TESTING PERFORMED AT [facility]. ORIGINAL REPORT ON FILE IN LAB CONTAINS ADDITIONAL TEST SITE INFORMATION. No Panel InformationOrdered By: Андрей Cooley on 07-12-2022 Miscellaneous Test See comment [facility] Comment on above: TEST RESULT LIMITSCarbamazepine(Tegretol),SCarbamazepine(Tegretol), S 6.3 ug/mL 4.0-12.0 In conjunction with other antiepileptic drugs Therapeutic 4.0 - 8.0 Toxicity 9.0 - 12.0 Carbamazepine alone Therapeutic 8.0 - 12.0 Detection Limit = 2.0 <2.0 indicated None Detected ____ TESTING PERFORMED AT [facility]. ORIGINAL REPORT ON FILE IN LAB CONTAINS ADDITIONAL TEST SITE INFORMATION. Basophil percentageOrdered B y: Андрей Cooley on 06-14-2022 Bilirubin [Mass/Vol] 0.20 mg/dL 0.20-1.00 [facility] Comment on above: For patients on eltr ombopag therapy, use of Dimension [place] TBIL is not recommended. Chloride [Moles/Vol] 104 mmol/L 98-107 [facility] Cholesterol [Mass/Vol] 139 mg/dL <200 [facility] Comment on above: <200 mg/dL Desirable 200-240 mg/dL Borderline >240 mg/dL High Risk Glucose [Mass/Vol] 76 mg/dL 74-106 [facility] Potassium [Moles/Vol] 3.9 mmol/L 3.5-5.1 [facility] Protein [Mass/Vol] 6.4 g/dL 6.4-8.2 [facility] Sodium [Moles/Vol] 139 mmol/L 136-145 [facility] Triglyceride [Mass/Vol] 111 mg/dL <199 [facility] Comment on above: The drugs N-Acetylcy steine and Metamizole may falsely depress this assay.Serum Triglycerides Reference Interval Normal <150 mg/dL Borderline high 150 - 199 mg/dL High 200 - 499 mg/dL Very High > or = 500 mg/dL WBC (Bld) [#/Vol] 5.5 10*3/uL 4.4-11.0 [facility] Blood erythrocytes count (nu mber/volume)Ordered By: Андрей Cooley on 06-14-2022 RBC (Bld) [#/Vol] 4.57 10*6/uL 4.6-6.2 [facility] Blood hemoglobin measurement (mass/volume)Ordered By: Андрей Cooley on 06-14-2022 Hemoglobin (Bld) [Mass/Vol] 15.0 g/dL 13.0-16.5 [facility] Blood platelet mean volumeOr dered By: Андрей Cooley on 06-14-2022 Platelet mean volume (Bld) [Entitic vol] 10.0 fL 6.2-12.0 [facility] Determination of erythrocyte mean corpuscular volume (MCV)Ordered By: Андрей Cooley on 06-14-2022 MCV (RBC) [Entitic vol] 100.4 fL 80-94 [facility] Hematocrit Auto (Bld) [Volum e fraction]Ordered By: Андрей Cooley on 06-14-2022 Hematocrit (Bld) [Volume fraction] 45.9 % 40-54 [facility] Laboratory - Chemistry and C hemistry - challengeOrdered By: Андрей Cooley on 06-14-2022 ALP [Catalytic activity/Vol] 68 U/L 45-117 [facility] ALT [Catalytic activity/Vol] 31 U/L 16-61 [facility] CO2 [Moles/Vol] 31.0 mmol/L 21.0-32.0 [facility] Globulin (S) [Mass/Vol] 3.0 g/dL 2.2-4.2 [facility] Urea nitrogen/Creatinine [Mass ratio] 22.5 mg/mg 10-20 [facility] Laboratory - Hematology and Cell countsOrdered By: Андрей Cooley on 06-14-2022 Erythrocyte distribution width (RBC) [Entitic vol] 51.8 fL 35.1-43.9 [facility] Erythrocyte distribution width (RBC) [Ratio] 14.2 % 11.6-14.6 [facility] MCH (RBC) [Entitic mass] 32.8 pg 27.0-32.0 [facility] MCHC Auto (RBC) [Mass/Vol]Or dered By: Андрей Cooley on 06-14-2022 MCHC (RBC) [Mass/Vol] 32.7 g/dL 32-36 [facility] No Panel InformationOrdered By: Андрей Cooley on 06-14-2022 Estimated GFR (MDRD) Amer 108 mL/min >60 [facility] Comment on above: GFR Calc Estimated GFR (MDRD) Non-Af Amer 89 mL/min >60 [facility] Comment on above: Non- GFR Calc Vitamin D 25-Hydroxy 40.8 ng/mL [facility] Comment on above: Vitamin D 25(OH) Sta tus Range Deficiency <20 ng/mL (50nmol/L) Insufficiency 20 - 30 ng/mL (50 - 75 nmol/L) Sufficiency 30 - 100 ng/mL (75 - 250 nmol/L) Toxicity >100 ng/mL (>250 nmol/L) Platelets bldOrdered By: Italia Cooley on 06-14-2022 Platelets (Bld) [#/Vol] 239 10*3/uL 150-450 [facility] Serum or plasma albumin luis urement (mass/volume)Ordered By: Андрей Cooley on 06-14-2022 Albumin [Mass/Vol] 3.4 g/dL 3.2-5.0 [facility] Serum or plasma albumin/glob ulin mass ratioOrdered By: Андрей Cooley on 06-14-2022 Albumin/Globulin [Mass ratio] 1.1 {ratio} 0.9-2.4 [facility] Serum or plasma calcium luis urement (mass/volume)Ordered By: Андрей Cooley on 06-14-2022 Calcium [Mass/Vol] 9.1 mg/dL 8.5-10.1 [facility] Serum or plasma cholesterol in HDL measurement (mass/volume)Ordered By: Андрей Cooley on 06-14-2022 Cholesterol in HDL [Mass/Vol] 65 mg/dL >40 [facility] Comment on above: The drugs N-Acetylcy steine and Metamizole may falsely depress this assay. Reference Range HDL <40 mg/dL Low HDL Cholesterol HDL >or= 60 mg/dL High HDL Cholesterol Serum or plasma cholesterol in VLDL measurement (mass/volume)Ordered By: Андрей Cooley on 06-14-2022 Cholesterol in VLDL [Mass/Vol] 22 mg/dL 5-40 [facility] Serum or plasma creatinine m easurement (mass/volume)Ordered By: Андрей Cooley on 06-14-2022 Creatinine [Mass/Vol] 0.89 mg/dL 0.70-1.30 [facility] Comment on above: The validity of the calculated GFR & GFRAA in patients over 70 years has not been determined. Clinical correlation is essential. Serum or plasma low density lipoprotein (LDL) cholesterol measurement (mass/volume)Ordered By: Андрей Cooley on 06-14-2022 Cholesterol in LDL [Mass/Vol] 52 mg/dL 0-130 [facility] Serum or plasma urea nitroge n measurement (mass/volume)Ordered By: Андрей Cooley on 06-14-2022 Urea nitrogen [Mass/Vol] 20 mg/dL 7-18 [facility] Thin prep Papanicolaou smear with manual screeningOrdered By: Андрей Cooley on 06-14-2022 Thin prep Papanicolaou smear with manual screening 13 U/L 15-37 [facility] Thin prep Papanicolaou smear with manual screening 4 5-15 [facility] No Panel InformationOrdered By: Андрей Cooley on 05-13-2022 Miscellaneous Test See comment [facility] Comment on above: TEST RESULT LIMITSCa rbamazepine(Tegretol), S 6.2 ug/mL 4.0-12.0 In conjunction with other antiepileptic drugs Therapeutic 4.0 - 8.0 Toxicity 9.0 - 12.0 Carbamazepine alone Therapeutic 8.0 - 12.0 Detection Limit = 2.0 <2.0 indicated None Detected ____ TESTING PERFORMED AT [facility]. ORIGINAL REPORT ON FILE IN LAB CONTAINS ADDITIONAL TEST SITE INFORMATION. Absolute lymphocyte counton 03-15-2022 Lymphocytes Auto (Unsp spec) [#/Vol] 1.09 10*3/uL 0.83-4.51 [facility] Work Phone: Basophil percentageon 2021 Basophils/100 WBC (Bld) 0.7 % 0-1 [facility] Work Phone: Bilirubin [Mass/Vol] 0.30 mg/dL 0.20-1.00 [facility] Work Phone: Comment on above: For patients on eltr ombopag therapy, use of Dimension [place] TBIL is not recommended. Chloride [Moles/Vol] 96 mmol/L 98-107 [facility] Work Phone: Cholesterol [Mass/Vol] 137 mg/dL <200 [facility] Work Phone: Comment on above: <200 mg/dL Desirable 200-240 mg/dL Borderline >240 mg/dL High Risk Eosinophils/100 WBC (Bld) 1.0 % 0-5 [facility] Work Phone: Glucose [Mass/Vol] 84 mg/dL 74-106 [facility] Work Phone: Neutrophils (Bld) [#/Vol] 5.3 10*3/uL 2.0-7.7 [facility] Work Phone: Neutrophils/100 WBC (Bld) 74.4 % 47-70 [facility] Work Phone: [phone] Potassium [Moles/Vol] 3.5 mmol/L 3.5-5.1 [facility] Work Phone: [phone] Comment on above: Slight Hemolysis, Re sult may be falsely increased. Protein [Mass/Vol] 7.2 g/dL 6.4-8.2 [facility] Work Phone: [phone] Sodium [Moles/Vol] 133 mmol/L 136-145 [facility] Work Phone: [phone] Triglyceride [Mass/Vol] 121 mg/dL <199 [facility] [...] 4.4-11.0 [facility] Work Phone: Blood erythrocytes count (nu mber/volume)on 03-15-2022 RBC (Bld) [#/Vol] 5.31 10*6/uL 4.6-6.2 [facility] Work Phone: [phone] Blood hemoglobin measurement (mass/volume)on 03-15-2022 Hemoglobin (Bld) [Mass/Vol] 17.0 g/dL 13.0-16.5 [facility] Work Phone: Blood lymphocytes/100 leukoc yteson 03-15-2022 Lymphocytes/100 WBC (Bld) 15.2 % 19-41 [facility] Work Phone: Blood monocytes/100 leukocyt eson 03-15-2022 Monocytes/100 WBC (Bld) 7.9 % 0-10 [facility] Work Phone: Blood platelet mean volumeon 03-15-2022 Platelet mean volume (Bld) [Entitic vol] 9.8 fL 6.2-12.0 [facility] Work Phone: Determination of erythrocyte mean corpuscular volume (MCV)on 03-15-2022 MCV (RBC) [Entitic vol] 93.2 fL 80-94 [facility] Work Phone: Hematocrit Auto (Bld) [Volum e fraction]on 03-15-2022 Hematocrit (Bld) [Volume fraction] 49.5 % 40-54 [facility] Work Phone: INR in Blood by Coagulation assayon 03-15-2022 INR Coag (Bld) [Relative time] 0.9 {INR} [facility] Work Phone: Laboratory - Chemistry and C hemistry - challengeon 03-15-2022 ALP [Catalytic activity/Vol] 71 U/L 45-117 [facility] Work Phone: ALT [Catalytic activity/Vol] 41 U/L 16-61 [facility] Work Phone: [phone] CO2 [Moles/Vol] 28.0 mmol/L 21.0-32.0 [facility] Work Phone: Globulin (S) [Mass/Vol] 4.1 g/dL 2.2-4.2 [facility] Work Phone: Urea nitrogen/Creatinine [Mass ratio] 21.2 mg/mg 10-20 [facility] Work Phone: Laboratory - Coagulationon 0 03-15-2022 PT Coag (PPP) [Time] 11.8 s 11.7-14.9 [facility] Work Phone: Laboratory - Hematology and Cell countson 03-15-2022 Erythrocyte distribution width (RBC) [Entitic vol] 44.0 fL 35.1-43.9 [facility] Work Phone: Erythrocyte distribution width (RBC) [Ratio] 12.7 % 11.6-14.6 [facility] Work Phone: Immature granulocytes/100 WBC (Bld) 0.800 % 0.0-0.9 [facility] Work Phone: Comment on above: IG% - Immature Granu locytes (promyelocytes, myelocytes and metamyelocytes) > 1% indicates that a LEFT SHIFT is Present. MCH (RBC) [Entitic mass] 32.0 pg 27.0-32.0 [facility] Work Phone: Nucleated RBC/100 WBC (Bld) [Ratio] 0 % 0-5 [facility] Work Phone: [phone] MCHC Auto (RBC) [Mass/Vol]on 03-15-2022 MCHC (RBC) [Mass/Vol] 34.3 g/dL 32-36 [facility] Work Phone: No Panel Informationon 03-15 Carbamazepine (Tegretol) Level 7.3 ug/mL 4.0-12.0 [facility] Work Phone: [phone] Estimated GFR (MDRD) Amer 101 mL/min >60 [facility] Work Phone: [phone] Comment on above: GFR Calc Estimated GFR (MDRD) Non-Af Amer 84 mL/min >60 [facility] Work Phone: [phone] Comment on above: Non- GFR Calc Platelets bldon 03-15-2022 Platelets (Bld) [#/Vol] 327 10*3/uL 150-450 [facility] Work Phone: [phone] Serum or plasma albumin luis urement (mass/volume)on 03-15-2022 Albumin [Mass/Vol] 3.1 g/dL 3.2-5.0 [facility] Work Phone: [phone] Serum or plasma albumin/glob ulin mass ratioon 03-15-2022 Albumin/Globulin [Mass ratio] 0.8 {ratio} 0.9-2.4 [facility] Work Phone: [phone] Serum or plasma calcium luis urement (mass/volume)on 03-15-2022 Calcium [Mass/Vol] 9.1 mg/dL 8.5-10.1 [facility] Work Phone: Serum or plasma cholesterol in HDL measurement (mass/volume)on 03-15-2022 Cholesterol in HDL [Mass/Vol] 72 mg/dL >40 [facility] Work Phone: Comment on above: The drugs N-Acetylcy steine and Metamizole may falsely depress this assay. Reference Range HDL <40 mg/dL Low HDL Cholesterol HDL >or= 60 mg/dL High HDL Cholesterol Serum or plasma cholesterol in VLDL measurement (mass/volume)on 03-15-2022 Cholesterol in VLDL [Mass/Vol] 24 mg/dL 5-40 [facility] Work Phone: Serum or plasma creatinine m easurement (mass/volume)on 03-15-2022 Creatinine [Mass/Vol] 0.94 mg/dL 0.70-1.30 [facility] Work Phone: Comment on above: The validity of the calculated GFR & GFRAA in patients over 70 years has not been determined. Clinical correlation is essential. Serum or plasma low density lipoprotein (LDL) cholesterol measurement (mass/volume)on 03-15-2022 Cholesterol in LDL [Mass/Vol] 41 mg/dL 0-130 [facility] Work Phone: Serum or plasma urea nitroge n measurement (mass/volume)on 03-15-2022 Urea nitrogen [Mass/Vol] 20 mg/dL 7-18 [facility] Work Phone: Thin prep Papanicolaou smear with manual screeningon 03-15-2022 Thin prep Papanicolaou smear with manual screening 54 U/L 15-37 [facility] Work Phone: Comment on above: Slight Hemolysis, Re sult may be falsely increased. Thin prep Papanicolaou smear with manual screening 9 5-15 [facility] Work Phone: Absolute lymphocyte counton 03-02-2022 Lymphocytes Auto (Unsp spec) [#/Vol] 1.54 10*3/uL 0.83-4.51 [facility] Work Phone: Basophil percentageon 2021 Basophils/100 WBC (Bld) 0.9 % 0-1 [facility] Work Phone: Bilirubin [Mass/Vol] 0.20 mg/dL 0.20-1.00 [facility] Work Phone: Comment on above: For patients on eltr ombopag therapy, use of Dimension [place] TBIL is not recommended. Chloride [Moles/Vol] 101 mmol/L 98-107 [facility] Work Phone: Eosinophils/100 WBC (Bld) 1.0 % 0-5 [facility] Work Phone: Glucose [Mass/Vol] 98 mg/dL 74-106 [facility] Work Phone: Neutrophils (Bld) [#/Vol] 4.6 10*3/uL 2.0-7.7 [facility] Work Phone: Neutrophils/100 WBC (Bld) 67.4 % 47-70 [facility] Work Phone: Potassium [Moles/Vol] 3.8 mmol/L 3.5-5.1 [facility] Work Phone: Protein [Mass/Vol] 7.5 g/dL 6.4-8.2 [facility] Work Phone: Sodium [Moles/Vol] 138 mmol/L 136-145 [facility] Work Phone: WBC (Bld) [#/Vol] 6.8 10*3/uL 4.4-11.0 [facility] Work Phone: Blood erythrocytes count (nu mber/volume)on 03-02-2022 RBC (Bld) [#/Vol] 5.14 10*6/uL 4.6-6.2 [facility] Work Phone: Blood hemoglobin measurement (mass/volume)on 03-02-2022 Hemoglobin (Bld) [Mass/Vol] 16.3 g/dL 13.0-16.5 [facility] Work Phone: Blood lymphocytes/100 leukoc yteson 03-02-2022 Lymphocytes/100 WBC (Bld) 22.8 % 19-41 [facility] Work Phone: Blood monocytes/100 leukocyt eson 03-02-2022 Monocytes/100 WBC (Bld) 7.3 % 0-10 [facility] Work Phone: Blood platelet mean volumeon 03-02-2022 Platelet mean volume (Bld) [Entitic vol] 9.9 fL 6.2-12.0 [facility] Work Phone: Determination of erythrocyte mean corpuscular volume (MCV)on 03-02-2022 MCV (RBC) [Entitic vol] 94.9 fL 80-94 [facility] Work Phone: Hematocrit Auto (Bld) [Volum e fraction]on 03-02-2022 Hematocrit (Bld) [Volume fraction] 48.8 % 40-54 [facility] Work Phone: Laboratory - Chemistry and C hemistry - challengeon 03-02-2022 ALP [Catalytic activity/Vol] 67 U/L 45-117 [facility] Work Phone: ALT [Catalytic activity/Vol] 27 U/L 16-61 [facility] Work Phone: CO2 [Moles/Vol] 30.0 mmol/L 21.0-32.0 [facility] Work Phone: Globulin (S) [Mass/Vol] 3.7 g/dL 2.2-4.2 [facility] Work Phone: Lipase [Catalytic activity/Vol] 95 U/L 73-393 [facility] Work Phone: Urea nitrogen/Creatinine [Mass ratio] 14.8 mg/mg 10-20 [facility] Work Phone: Laboratory - Hematology and Cell countson 03-02-2022 Erythrocyte distribution width (RBC) [Entitic vol] 47.0 fL 35.1-43.9 [facility] Work Phone: Erythrocyte distribution width (RBC) [Ratio] 13.9 % 11.6-14.6 [facility] Work Phone: [phone] Immature granulocytes/100 WBC (Bld) 0.600 % 0.0-0.9 [facility] Work Phone: [phone] Comment on above: IG% - Immature Granu locytes (promyelocytes, myelocytes and metamyelocytes) > 1% indicates that a LEFT SHIFT is Present. MCH (RBC) [Entitic mass] 31.7 pg 27.0-32.0 [facility] Work Phone: [phone] Nucleated RBC/100 WBC (Bld) [Ratio] 0 % 0-5 [facility] Work Phone: [phone] MCHC Auto (RBC) [Mass/Vol]on 03-02-2022 MCHC (RBC) [Mass/Vol] 33.4 g/dL 32-36 [facility] Work Phone: No Panel Informationon 03-02 Estimated Creatinine Clearance Calc 59.81 ml/min [facility] Work Phone: [phone] Estimated GFR (MDRD) Amer 86 mL/min >60 [facility] Work Phone: [phone] Comment on above: GFR Calc Estimated GFR (MDRD) Non-Af Amer 71 mL/min >60 [facility] Work Phone: [phone] Comment on above: Non- GFR Calc Troponin I High Sensitivity 18 pg/mL 3.0-78.0 [facility] Work Phone: Comment on above: Please Note: New [place] t Units and Gender Specific Reference Ranges. For more information see Policy Stat Procedure [place] High Sensitivity Troponin (TNIH) and attachments. Platelets bldon 03-02-2022 Platelets (Bld) [#/Vol] 296 10*3/uL 150-450 [facility] Work Phone: [phone] Serum or plasma albumin luis urement (mass/volume)on 03-02-2022 Albumin [Mass/Vol] 3.8 g/dL 3.2-5.0 [facility] Work Phone: [phone] Serum or plasma albumin/glob ulin mass ratioon 03-02-2022 Albumin/Globulin [Mass ratio] 1.0 {ratio} 0.9-2.4 [facility] Work Phone: Serum or plasma calcium luis urement (mass/volume)on 03-02-2022 Calcium [Mass/Vol] 9.7 mg/dL 8.5-10.1 [facility] Work Phone: Serum or plasma creatinine m easurement (mass/volume)on 03-02-2022 Creatinine [Mass/Vol] 1.08 mg/dL 0.70-1.30 [facility] Work Phone: Comment on above: The validity of the calculated GFR & GFRAA in patients over 70 years has not been determined. Clinical correlation is essential. Serum or plasma urea nitroge n measurement (mass/volume)on 03-02-2022 Urea nitrogen [Mass/Vol] 16 mg/dL 7-18 [facility] Work Phone: Thin prep Papanicolaou smear with manual screeningon 03-02-2022 Thin prep Papanicolaou smear with manual screening 15 U/L 15-37 [facility] Work Phone: Thin prep Papanicolaou smear with manual screening 7 5-15 [facility] Work Phone: Basophil percentageon 2021 Chloride [Moles/Vol] 99 mmol/L 98-107 [facility] Work Phone: Glucose [Mass/Vol] 110 mg/dL 74-106 [facility] Work Phone: Comment on above: Fasting Glucose resu lt from 100 to 125 mg/dL suggests IMPAIRED HOMEOSTASIS per A.D.A. criteria. Potassium [Moles/Vol] 4.0 mmol/L 3.5-5.1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 [Moles/Vol] 107 mmol/L 98-107 [facility] Work Phone: Eosinophils/100 WBC (Bld) 3.5 % 0-5 [facility] Work Phone: Glucose [Mass/Vol] 90 mg/dL 74-106 [facility] Work Phone: Neutrophils (Bld) [#/Vol] 6.9 10*3/uL 2.0-7.7 [facility] Work Phone: Neutrophils/100 WBC (Bld) 74.4 % 47-70 [facility] Work Phone: Potassium [Moles/Vol] 3.4 mmol/L 3.5-5.1 [facility] Work Phone: Sodium [Moles/Vol] 140 mmol/L 136-145 [facility] Work Phone: WBC (Bld) [#/Vol] 9.3 10*3/uL 4.4-11.0 [facility] Work Phone: Blood erythrocytes count (nu mber/volume)on 11-30-2021 RBC (Bld) [#/Vol] 3.21 10*6/uL 4.6-6.2 [facility] Work Phone: Blood hemoglobin measurement (mass/volume)on 11-30-2021 Hemoglobin (Bld) [Mass/Vol] 7.8 g/dL 13.0-16.5 [facility] Work Phone: Blood lymphocytes/100 leukoc yteson 11-30-2021 Lymphocytes/100 WBC (Bld) 12.2 % 19-41 [facility] Work Phone: Blood monocytes/100 leukocyt eson 11-30-2021 Monocytes/100 WBC (Bld) 7.0 % 0-10 [facility] Work Phone: Blood platelet mean volumeon 11-30-2021 Platelet mean volume (Bld) [Entitic vol] 10.8 fL 6.2-12.0 [facility] Work Phone: Blood polychromasia detectio n by light microscopyon 11-30-2021 Polychromasia LM Ql (Bld) 2+ [facility] Work Phone: Determination of erythrocyte mean corpuscular volume (MCV)on 11-30-2021 MCV (RBC) [Entitic vol] 83.8 fL 80-94 [facility] Work Phone: Hematocrit Auto (Bld) [Volum e fraction]on 11-30-2021 Hematocrit (Bld) [Volume fraction] 26.9 % 40-54 [facility] Work Phone: INR in Blood by Coagulation assayon 11-30-2021 INR Coag (Bld) [Relative time] 1.4 {INR} [facility] Work Phone: Laboratory - Chemistry and C hemistry - challengeon 11-30-2021 CO2 [Moles/Vol] 26.0 mmol/L 21.0-32.0 [facility] Work Phone: Urea nitrogen/Creatinine [Mass ratio] 12.0 mg/mg 10-20 [facility] Work Phone: [phone] Laboratory - Coagulationon 0 11-30-2021 PT Coag (PPP) [Time] 17.1 s 11.7-14.9 [facility] Work Phone: Laboratory - Hematology and Cell countson 11-30-2021 Anisocytosis Ql (Bld) 2+ [facility] Work Phone: [phone] Erythrocyte distribution width (RBC) [Entitic vol] 64.9 fL 35.1-43.9 [facility] Work Phone: [phone] Erythrocyte distribution width (RBC) [Ratio] 24.2 % 11.6-14.6 [facility] Work Phone: Immature granulocytes/100 WBC (Bld) 1.400 % 0.0-0.9 [facility] Work Phone: Comment on above: IG% - Immature Granu locytes (promyelocytes, myelocytes and metamyelocytes) > 1% indicates that a LEFT SHIFT is Present. MCH (RBC) [Entitic mass] 24.3 pg 27.0-32.0 [facility] Work Phone: Nucleated RBC/100 WBC (Bld) [Ratio] 2.7 % 0-5 [facility] Work Phone: MCHC Auto (RBC) [Mass/Vol]on 11-30-2021 MCHC (RBC) [Mass/Vol] 29.0 g/dL 32-36 [facility] Work Phone: No Panel Informationon 11-30 Estimated Creatinine Clearance Calc 70.99 ml/min [facility] Work Phone: Estimated GFR (MDRD) Amer 105 mL/min >60 [facility] Work Phone: [phone] Comment on above: GFR Calc Estimated GFR (MDRD) Non-Af Amer 87 mL/min >60 [facility] Work Phone: [phone] Comment on above: Non- GFR Calc Anti-Gliadin IgA Antibody 3 units 0-19 [facility] Work Phone: [phone] Comment on above: Negative 0 - 19 Weak Positive 20 - 30 Moderate to Strong Positive >30 Anti-Gliadin IgG Antibody 1 units 0-19 [facility] Work Phone: [phone] Comment on above: Negative 0 - 19 Weak Positive 20 - 30 Moderate to Strong Positive >30 Endomysial IgA Antibody Negative Negative [facility] Work Phone: [phone] Tissue Transglutaminase IgG Ab <2 U/mL 0-5 [facility] Work Phone: Comment on above: Negative 0 - 5 Weak Positive 6 - 9 Positive >9 Platelets bldon 11-30-2021 Platelets (Bld) [#/Vol] 305 10*3/uL 150-450 [facility] Work Phone: Serum IgA measurement (units /volume)on 11-30-2021 IgA Qn (S) 128 mg/dL 61-437 [facility] Work Phone: Comment on above: Performed at: [facility] [place] [id number] Director: Дмитрий Tran PhD, Phone: [phone] Serum or plasma calcium luis urement (mass/volume)on 11-30-2021 Calcium [Mass/Vol] 8.9 mg/dL 8.5-10.1 [facility] Work Phone: Serum or plasma creatinine m easurement (mass/volume)on 11-30-2021 Creatinine [Mass/Vol] 0.91 mg/dL 0.70-1.30 [facility] Work Phone: Comment on above: The validity of the calculated GFR & GFRAA in patients over 70 years has not been determined. Clinical correlation is essential. Serum or plasma urea nitroge n measurement (mass/volume)on 11-30-2021 Urea nitrogen [Mass/Vol] 11 mg/dL 7-18 [facility] Work Phone: Serum tissue transglutaminas e IgA antibody assay (units/volume)on 11-30-2021 tTG IgA Qn (S) <2 U/mL 0-3 [facility] Work Phone: Comment on above: Negative 0 - 3 Weak Positive 4 - 10 Positive >10 Tissue Transglutaminase (tTG) has been identified as the endomysial antigen. Studies have demonstr- ated that endomysial IgA antibodies have over 99% specificity for gluten sensitive enteropathy. Thin prep Papanicolaou smear with manual screeningon 11-30-2021 Thin prep Papanicolaou smear with manual screening 7 5-15 [facility] Work Phone: Blood platelet adequacy dete ction by light microscopyon 11-29-2021 Platelets LM Ql (Bld) ADEQUATE ADEQ [facility] Work Phone: Hypochromatic red blood cell detectionon 11-29-2021 Hypochromia Ql (Bld) 1+ [facility] Work Phone: Serum or plasma ferritin arlyn surement (mass/volume)on 11-29-2021 Ferritin [Mass/Vol] 157 ng/mL 26-388 [facility] Work Phone: Blood manual differential co mment interpretation (narrative result)on 11-28-2021 Manual differential comment Ghassan (Bld) [Interp] SCANNED [facility] Work Phone: Laboratory - Chemistry and C hemistry - challengeon 11-28-2021 Magnesium [Mass/Vol] 2.0 mg/dL 1.6-2.6 [facility] Work Phone: Macrocytes detectionon 11-28 Macrocytes Ql (Bld) RARE [facility] Work Phone: Ovalocyte detectionon 2021 Ovalocytes LM Ql (Bld) 1+ [facility] Work Phone: Thin prep Papanicolaou smear with manual screeningon 11-28-2021 Thin prep Papanicolaou smear with manual screening 1+ [facility] Work Phone: Laboratory - Chemistry and C hemistry - challengeon 11-26-2021 Cobalamin (Vitamin B12) [Mass/Vol] 403 pg/mL 211-911 [facility] Work Phone: No Panel Informationon 11-26 Troponin I High Sensitivity 13 pg/mL 3.0-78.0 [facility] Work Phone: Comment on above: Please Note: New [place] t Units and Gender Specific Reference Ranges. For more information see Policy Stat Procedure [place] High Sensitivity Troponin (TNIH) and attachments. Absolute lymphocyte counton 11-25-2021 Lymphocytes Auto (Unsp spec) [#/Vol] 0.81 10*3/uL 0.83-4.51 [facility] Work Phone: Basophil percentageon 2021 Basophil percentage 0 SEEN /hpf 0-5 [facility] Work Phone: Basophils/100 WBC (Bld) 0.7 % 0-1 [facility] Work Phone: Eosinophils/100 WBC (Bld) 0.1 % 0-5 [facility] Work Phone: Neutrophils (Bld) [#/Vol] 5.8 10*3/uL 2.0-7.7 [facility] Work Phone: Neutrophils/100 WBC (Bld) 80.9 % 47-70 [facility] Work Phone: WBC (Bld) [#/Vol] 7.1 10*3/uL 4.4-11.0 [facility] Work Phone: Bilirubin [Mass/Vol] 0.20 mg/dL 0.20-1.00 [facility] Work Phone: Comment on above: For patients on eltr ombopag therapy, use of Dimension [place] TBIL is not recommended. Chloride [Moles/Vol] 101 mmol/L 98-107 [facility] Work Phone: Glucose [Mass/Vol] 113 mg/dL 74-106 [facility] Work Phone: Comment on above: Fasting Glucose resu lt from 100 to 125 mg/dL suggests IMPAIRED HOMEOSTASIS per A.D.A. criteria. Potassium [Moles/Vol] 4.2 mmol/L 3.5-5.1 [facility] Work Phone: Protein [Mass/Vol] 6.8 g/dL 6.4-8.2 [facility] Work Phone: Sodium [Moles/Vol] 133 mmol/L 136-145 [facility] Work Phone: [phone] Bilirubin Test strip Ql (U)o n 11-25-2021 Bilirubin Ql (U) Negative Negative [facility] Work Phone: Blood erythrocytes count (nu mber/volume)on 11-25-2021 RBC (Bld) [#/Vol] 2.36 10*6/uL 4.6-6.2 [facility] Work Phone: Blood hemoglobin measurement (mass/volume)on 11-25-2021 Hemoglobin (Bld) [Mass/Vol] 4.4 g/dL 13.0-16.5 [facility] Work Phone: Comment on above: CRITICAL VALUE VERIF IED. CALLED TO [id number] Kateryna Horn.RESULTS READ BACK BY SAME . Blood lymphocytes/100 leukoc yteson 11-25-2021 Lymphocytes/100 WBC (Bld) 11.4 % 19-41 [facility] Work Phone: Blood manual differential co mment interpretation (narrative result)on 11-25-2021 Manual differential comment Ghassan (Bld) [Interp] SCANNED [facility] Work Phone: Comment on above: ANEMIA NOTED Blood monocytes/100 leukocyt eson 11-25-2021 Monocytes/100 WBC (Bld) 6.3 % 0-10 [facility] Work Phone: [phone] Blood platelet mean volumeon 11-25-2021 Platelet mean volume (Bld) [Entitic vol] 10.2 fL 6.2-12.0 [facility] Work Phone: Determination of erythrocyte mean corpuscular volume (MCV)on 11-25-2021 MCV (RBC) [Entitic vol] 71.6 fL 80-94 [facility] Work Phone: [phone] Hematocrit Auto (Bld) [Volum e fraction]on 11-25-2021 Hematocrit (Bld) [Volume fraction] 16.9 % 40-54 [facility] Work Phone: [phone] Hemoglobin in reticulocytes (mass per reticulocyte)on 11-25-2021 Hemoglobin (Reticulocytes) [Entitic mass] 15.0 pg 30-35 [facility] Work Phone: Hypochromatic red blood cell detectionon 11-25-2021 Hypochromia Ql (Bld) 1+ [facility] Work Phone: [phone] INR in Blood by Coagulation assayon 11-25-2021 INR Coag (Bld) [Relative time] 5.4 {INR} [facility] Work Phone: [phone] Comment on above: CRITICAL VALUE VERIF IED. CALLED TO [id number] Kateryna Horn.RESULTS READ BACK BY SAME . Iron measurement (mass/mass) on 11-25-2021 Iron (Unsp spec) [Mass/Mass] 10 ug/dL 65-175 [facility] Work Phone: Ketones Test strip Ql (U)on 11-25-2021 Ketones Ql (U) Negative Negative [facility] Work Phone: [phone] Laboratory - Chemistry and C hemistry - challengeon 11-25-2021 ALP [Catalytic activity/Vol] 54 U/L 45-117 [facility] Work Phone: ALT [Catalytic activity/Vol] 20 U/L 16-61 [facility] Work Phone: [phone] CO2 [Moles/Vol] 23.0 mmol/L 21.0-32.0 [facility] Work Phone: [phone] Globulin (S) [Mass/Vol] 3.1 g/dL 2.2-4.2 [facility] Work Phone: Urea nitrogen/Creatinine [Mass ratio] 16.7 mg/mg 10-20 [facility] Work Phone: Laboratory - Coagulationon 0 11-25-2021 PT Coag (PPP) [Time] 49.2 s 11.7-14.9 [facility] Work Phone: Laboratory - Hematology and Cell countson 11-25-2021 Erythrocyte distribution width (RBC) [Entitic vol] 48.7 fL 35.1-43.9 [facility] Work Phone: [phone] Erythrocyte distribution width (RBC) [Ratio] 18.6 % 11.6-14.6 [facility] Work Phone: [phone] Immature granulocytes/100 WBC (Bld) 0.600 % 0.0-0.9 [facility] Work Phone: [phone] Comment on above: IG% - Immature Granu locytes (promyelocytes, myelocytes and metamyelocytes) > 1% indicates that a LEFT SHIFT is Present. MCH (RBC) [Entitic mass] 18.6 pg 27.0-32.0 [facility] Work Phone: [phone] Nucleated RBC/100 WBC (Bld) [Ratio] 0.6 % 0-5 [facility] Work Phone: Lower GI hemoglobin IA Ql (S tl)on 11-25-2021 Stool Occult Blood (LACI) Positive [facility] Work Phone: [phone] MCHC Auto (RBC) [Mass/Vol]on 11-25-2021 MCHC (RBC) [Mass/Vol] 26.0 g/dL 32-36 [facility] Work Phone: Mucus LM Ql (Urine sed)on Mucus Ql (Urine sed) 0 SEEN /hpf [facility] Work Phone: [phone] Nitrite Test strip Ql (U)on 11-25-2021 Nitrite Ql (U) Negative Negative [facility] Work Phone: No Panel Informationon 11-25 Immature Reticulocyte Fraction 25.00 % 3.00-15.90 [facility] Work Phone: [phone] Reticulocyte Count 2.10 % 0.5-1.5 [facility] Work Phone: Estimated Creatinine Clearance Calc 44.86 ml/min [facility] Work Phone: Estimated GFR (MDRD) Amer 62 mL/min >60 [facility] Work Phone: Comment on above: GFR Calc Estimated GFR (MDRD) Non-Af Amer 51 mL/min >60 [facility] Work Phone: Comment on above: Non- GFR Calc Total Iron Binding Capacity 466 ug/dL 250-450 [facility] Work Phone: Platelets bldon 11-25-2021 Platelets (Bld) [#/Vol] 398 10*3/uL 150-450 [facility] Work Phone: [phone] Protein Test strip Ql (U)on 11-25-2021 Protein Ql (U) Negative Negative [facility] Work Phone: [phone] Review by pathologiston Pathologist review Ghassan (Unsp spec) [Interp] October jj [facility] Work Phone: Pathologist review Ghassan (Unsp spec) [Interp] Reviewed [facility] Work Phone: [phone] Comment on above: Previous reported re sult: Lena gardner Edited by: RGOROMMEL on 11/26/21:1239Severe Microcytic anemia.Clinical correlation necessary.Sebastian Gonzalez M.D. 11/26/21 AMENDED REPORT 11/26/21 1239 PATH REV previously reported as: October jj Serum or plasma albumin luis urement (mass/volume)on 11-25-2021 Albumin [Mass/Vol] 3.7 g/dL 3.2-5.0 [facility] Work Phone: Serum or plasma albumin/glob ulin mass ratioon 11-25-2021 Albumin/Globulin [Mass ratio] 1.2 {ratio} 0.9-2.4 [facility] Work Phone: Serum or plasma calcium luis urement (mass/volume)on 11-25-2021 Calcium [Mass/Vol] 8.2 mg/dL 8.5-10.1 [facility] Work Phone: [phone] Serum or plasma creatinine m easurement (mass/volume)on 11-25-2021 Creatinine [Mass/Vol] 1.44 mg/dL 0.70-1.30 [facility] Work Phone: Comment on above: The validity of the calculated GFR & GFRAA in patients over 70 years has not been determined. Clinical correlation is essential. Serum or plasma ferritin arlyn surement (mass/volume)on 11-25-2021 Ferritin [Mass/Vol] 5 ng/mL 26-388 [facility] Work Phone: [phone] Serum or plasma folate measu rement (mass/volume)on 11-25-2021 Folate [Mass/Vol] 12.90 ng/mL 3.1-55.4 [facility] Work Phone: [phone] Serum or plasma iron saturat ion measurement (mass fraction)on 11-25-2021 Iron saturation [Mass fraction] 2.1 % 15.0-55.0 [facility] Work Phone: Serum or plasma urea nitroge n measurement (mass/volume)on 11-25-2021 Urea nitrogen [Mass/Vol] 24 mg/dL 7-18 [facility] Work Phone: [phone] Squamous epithelial cells de tection in urine sediment by light microscopyon 11-25-2021 Epithelial cells.squamous LM Ql (Urine sed) 0 SEEN /hpf 0-5 [facility] Work Phone: [phone] Thin prep Papanicolaou smear with manual screeningon 11-25-2021 Thin prep Papanicolaou smear with manual screening 10 U/L 15-37 [facility] Work Phone: [phone] Thin prep Papanicolaou smear with manual screening 9 5-15 [facility] Work Phone: [phone] Urine blood detectionon RBC Ql (U) 50 /ul Negative [facility] Work Phone: RBC Ql (U) 5-10 SEEN /hpf 0-5 [facility] Work Phone: Urine clarityon 11-25-2021 Clarity (U) Clear Clear [facility] Work Phone: Urine color determinationon 11-25-2021 Color (U) Straw Yellow [facility] Work Phone: Urine glucose detectionon Glucose Ql (U) Normal mg/dl Normal [facility] Work Phone: [phone] Urine leukocyte esterase det ection by dipstickon 11-25-2021 Leukocyte esterase Test strip Ql (U) Negative Negative [facility] Work Phone: Urine pHon 11-25-2021 pH (U) 7.0 [pH] 5.0 - 8.0 [facility] Work Phone: Urine sediment bacteria coun t by microscopy (number/high power field)on 11-25-2021 Bacteria LM.HPF (Urine sed) [#/Area] RARE /hpf None Seen [facility] Work Phone: Urine specific gravity measu rementon 11-25-2021 Specific gravity (U) [Rel density] 1.010 1.002-1.030 [facility] Work Phone: Urobilinogen Auto test strip Ql (U)on 11-25-2021 Urobilinogen Ql (U) Normal mg/dl Normal [facility] Work Phone: INR in Blood by Coagulation assayon 11-11-2021 INR Coag (Bld) [Relative time] 1.2 {INR} [facility] - Coagulationon 0 11-11-2021 PT Coag (PPP) [Time] 15.1 s 11.7-14.9 [facility] Work Phone: No Panel Informationon 11-08 DLCO (ml/min/mmHg) 7.15 ml/min/mmHg [facility] DLCO/VA (ml/min/mmHg/L) 1.63 ml/min/mmHg/L [facility] EWN29-85% PRE (L/S) 0.30 L/S [facility] FEV1 PRE (L) 0.85 L [facility] FEV1/FVC PRE (%) 0.38 % [facility] FVC PRE (L) 2.23 L [facility] PEF PRE (L/S) 1.51 L/S [facility] VA (L) 4.38 L [facility] CNCOon 10-18-2021 CNCO Letter Text Letter Text Normal [facility] INR FINGERSTICK B/Oon 2021 INR Coag (Bld) [Relative time] 2.2 EXT [facility] Quality Check No [facility] Absolute lymphocyte counton 10-08-2021 Lymphocytes Auto (Unsp spec) [#/Vol] 1.26 10*3/uL 0.83-4.51 [facility] Work Phone: Basophil percentageon 2021 Basophil percentage 10-25 SEEN /hpf 0-5 [facility] Work Phone: Basophils/100 WBC (Bld) 1.3 % 0-1 [facility] Work Phone: Bilirubin [Mass/Vol] 0.30 mg/dL 0.20-1.00 [facility] Work Phone: Comment on above: For patients on eltr ombopag therapy, use of Dimension [place] TBIL is not recommended. Chloride [Moles/Vol] 105 mmol/L 98-107 [facility] Work Phone: Eosinophils/100 WBC (Bld) 0.5 % 0-5 [facility] Work Phone: Glucose [Mass/Vol] 99 mg/dL 74-106 [facility] Work Phone: Neutrophils (Bld) [#/Vol] 4.3 10*3/uL 2.0-7.7 [facility] Work Phone: Neutrophils/100 WBC (Bld) 70.4 % 47-70 [facility] Work Phone: Potassium [Moles/Vol] 3.7 mmol/L 3.5-5.1 [facility] Work Phone: Protein [Mass/Vol] 7.5 g/dL 6.4-8.2 [facility] Work Phone: Sodium [Moles/Vol] 138 mmol/L 136-145 [facility] Work Phone: WBC (Bld) [#/Vol] 6.1 10*3/uL 4.4-11.0 [facility] Work Phone: Bilirubin Test strip Ql (U)o n 10-08-2021 Bilirubin Ql (U) Negative Negative [facility] Work Phone: Blood erythrocytes count (nu mber/volume)on 10-08-2021 RBC (Bld) [#/Vol] 3.87 10*6/uL 4.6-6.2 [facility] Work Phone: Blood hemoglobin measurement (mass/volume)on 10-08-2021 Hemoglobin (Bld) [Mass/Vol] 8.3 g/dL 13.0-16.5 [facility] Work Phone: Blood lymphocytes/100 leukoc yteson 10-08-2021 Lymphocytes/100 WBC (Bld) 20.5 % 19-41 [facility] Work Phone: Blood monocytes/100 leukocyt eson 10-08-2021 Monocytes/100 WBC (Bld) 7.0 % 0-10 [facility] Work Phone: Blood platelet mean volumeon 10-08-2021 Platelet mean volume (Bld) [Entitic vol] 10.1 fL 6.2-12.0 [facility] Work Phone: Determination of erythrocyte mean corpuscular volume (MCV)on 10-08-2021 MCV (RBC) [Entitic vol] 74.7 fL 80-94 [facility] Work Phone: Hematocrit Auto (Bld) [Volum e fraction]on 10-08-2021 Hematocrit (Bld) [Volume fraction] 28.9 % 40-54 [facility] Work Phone: INR in Blood by Coagulation assayon 10-08-2021 INR Coag (Bld) [Relative time] 2.4 {INR} [facility] Work Phone: Ketones Test strip Ql (U)on 10-08-2021 Ketones Ql (U) Negative Negative [facility] Work Phone: Laboratory - Chemistry and C hemistry - challengeon 10-08-2021 ALP [Catalytic activity/Vol] 74 U/L 45-117 [facility] Work Phone: ALT [Catalytic activity/Vol] 21 U/L 16-61 [facility] Work Phone: [phone] CO2 [Moles/Vol] 30.0 mmol/L 21.0-32.0 [facility] Work Phone: Globulin (S) [Mass/Vol] 3.7 g/dL 2.2-4.2 [facility] Work Phone: [phone] Lipase [Catalytic activity/Vol] 93 U/L 73-393 [facility] Work Phone: [phone] Urea nitrogen/Creatinine [Mass ratio] 20.2 mg/mg 10-20 [facility] Work Phone: Laboratory - Coagulationon 0 10-08-2021 PT Coag (PPP) [Time] 25.7 s 11.7-14.9 [facility] Work Phone: [phone] Laboratory - Hematology and Cell countson 10-08-2021 Erythrocyte distribution width (RBC) [Entitic vol] 50.4 fL 35.1-43.9 [facility] Work Phone: [phone] Erythrocyte distribution width (RBC) [Ratio] 18.6 % 11.6-14.6 [facility] Work Phone: [phone] Immature granulocytes/100 WBC (Bld) 0.300 % 0.0-0.9 [facility] Work Phone: Comment on above: IG% - Immature Granu locytes (promyelocytes, myelocytes and metamyelocytes) > 1% indicates that a LEFT SHIFT is Present. MCH (RBC) [Entitic mass] 21.4 pg 27.0-32.0 [facility] Work Phone: [phone] Nucleated RBC/100 WBC (Bld) [Ratio] 0 % 0-5 [facility] Work Phone: [phone] MCHC Auto (RBC) [Mass/Vol]on 10-08-2021 MCHC (RBC) [Mass/Vol] 28.7 g/dL 32-36 [facility] Work Phone: [phone] Mucus LM Ql (Urine sed)on Mucus Ql (Urine sed) 0 SEEN /hpf [facility] Work Phone: [phone] Nitrite Test strip Ql (U)on 10-08-2021 Nitrite Ql (U) Positive Negative [facility] Work Phone: [phone] Panel Informationon 10-08 Estimated Creatinine Clearance Calc 68.72 ml/min [facility] Work Phone: [phone] Estimated GFR (MDRD) Amer 101 mL/min >60 [facility] Work Phone: [phone] Comment on above: GFR Calc Estimated GFR (MDRD) Non-Af Amer 84 mL/min >60 [facility] Work Phone: [phone] Comment on above: Non- GFR Calc Platelets bldon 10-08-2021 Platelets (Bld) [#/Vol] 349 10*3/uL 150-450 [facility] Work Phone: [phone] Protein Test strip Ql (U)on 10-08-2021 Protein Ql (U) 100 mg/dl Negative [facility] Work Phone: [phone] Serum or plasma albumin luis urement (mass/volume)on 10-08-2021 Albumin [Mass/Vol] 3.8 g/dL 3.2-5.0 [facility] Work Phone: [phone] Serum or plasma albumin/glob ulin mass ratioon 10-08-2021 Albumin/Globulin [Mass ratio] 1.0 {ratio} 0.9-2.4 [facility] Work Phone: Serum or plasma calcium luis urement (mass/volume)on 10-08-2021 Calcium [Mass/Vol] 9.1 mg/dL 8.5-10.1 [facility] Work Phone: Serum or plasma creatinine m easurement (mass/volume)on 10-08-2021 Creatinine [Mass/Vol] 0.94 mg/dL 0.70-1.30 [facility] Work Phone: Comment on above: The validity of the calculated GFR & GFRAA in patients over 70 years has not been determined. Clinical correlation is essential. Serum or plasma urea nitroge n measurement (mass/volume)on 10-08-2021 Urea nitrogen [Mass/Vol] 19 mg/dL 7-18 [facility] Work Phone: Squamous epithelial cells de tection in urine sediment by light microscopyon 10-08-2021 Epithelial cells.squamous LM Ql (Urine sed) 0-5 SEEN /hpf 0-5 [facility] Work Phone: Thin prep Papanicolaou smear with manual screeningon 10-08-2021 Thin prep Papanicolaou smear with manual screening 12 U/L 15-37 [facility] Work Phone: Thin prep Papanicolaou smear with manual screening 3 5-15 [facility] Work Phone: Urine blood detectionon 09-18 RBC Ql (U) 10 /ul Negative [facility] Work Phone: RBC Ql (U) 0 SEEN /hpf 0-5 [facility] Work Phone: [phone] Urine clarityon 10-08-2021 Clarity (U) Sl. Cloudy Clear [facility] Work Phone: [phone] Urine color determinationon 10-08-2021 Color (U) Yellow Yellow [facility] Work Phone: [phone] Urine glucose detectionon Glucose Ql (U) Normal mg/dl Normal [facility] Work Phone: [phone] Urine leukocyte esterase det ection by dipstickon 10-08-2021 Leukocyte esterase Test strip Ql (U) 500 /ul Negative [facility] Work Phone: Urine pHon 10-08-2021 pH (U) 6.5 [pH] 5.0 - 8.0 [facility] Work Phone: Urine sediment bacteria coun t by microscopy (number/high power field)on 10-08-2021 Bacteria LM.HPF (Urine sed) [#/Area] 3 /[HPF] None Seen [facility] Work Phone: Urine specific gravity measu rementon 10-08-2021 Specific gravity (U) [Rel density] 1.010 1.002-1.030 [facility] Work Phone: Urobilinogen Auto test strip Ql (U)on 10-08-2021 Urobilinogen Ql (U) Normal mg/dl Normal [facility] Work Phone: Absolute lymphocyte counton 09-22-2021 Lymphocytes Auto (Unsp spec) [#/Vol] 1.51 10*3/uL 0.83-4.51 [facility] Work Phone: Basophil percentageon 2021 Basophils/100 WBC (Bld) 2.1 % 0-1 [facility] Work Phone: Eosinophils/100 WBC (Bld) 5.1 % 0-5 [facility] Work Phone: Neutrophils (Bld) [#/Vol] 3.7 10*3/uL 2.0-7.7 [facility] Work Phone: Neutrophils/100 WBC (Bld) 60.6 % 47-70 [facility] Work Phone: WBC (Bld) [#/Vol] 6.1 10*3/uL 4.4-11.0 [facility] Work Phone: Blood erythrocytes count (nu mber/volume)on 09-22-2021 RBC (Bld) [#/Vol] 4.09 10*6/uL 4.6-6.2 [facility] Work Phone: Blood hemoglobin measurement (mass/volume)on 09-22-2021 Hemoglobin (Bld) [Mass/Vol] 9.1 g/dL 13.0-16.5 [facility] Work Phone: [phone] Blood lymphocytes/100 leukoc yteson 09-22-2021 Lymphocytes/100 WBC (Bld) 24.8 % 19-41 [facility] Work Phone: [phone] Blood monocytes/100 leukocyt eson 09-22-2021 Monocytes/100 WBC (Bld) 6.9 % 0-10 [facility] Work Phone: [phone] Blood platelet mean volumeon 09-22-2021 Platelet mean volume (Bld) [Entitic vol] 9.9 fL 6.2-12.0 [facility] Work Phone: [phone] Determination of erythrocyte mean corpuscular volume (MCV)on 09-22-2021 MCV (RBC) [Entitic vol] 77.5 fL 80-94 [facility] Work Phone: [phone] Hematocrit Auto (Bld) [Volum e fraction]on 09-22-2021 Hematocrit (Bld) [Volume fraction] 31.7 % 40-54 [facility] Work Phone: [phone] Laboratory - Hematology and Cell countson 09-22-2021 Erythrocyte distribution width (RBC) [Entitic vol] 56.2 fL 35.1-43.9 [facility] Work Phone: [phone] Erythrocyte distribution width (RBC) [Ratio] 19.9 % 11.6-14.6 [facility] Work Phone: [phone] Immature granulocytes/100 WBC (Bld) 0.500 % 0.0-0.9 [facility] Work Phone: [phone] Comment on above: IG% - Immature Granu locytes (promyelocytes, myelocytes and metamyelocytes) > 1% indicates that a LEFT SHIFT is Present. MCH (RBC) [Entitic mass] 22.2 pg 27.0-32.0 [facility] Work Phone: Nucleated RBC/100 WBC (Bld) [Ratio] 0 % 0-5 [facility] Work Phone: MCHC Auto (RBC) [Mass/Vol]on 09-22-2021 MCHC (RBC) [Mass/Vol] 28.7 g/dL 32-36 [facility] Work Phone: Platelets bldon 09-22-2021 Platelets (Bld) [#/Vol] 351 10*3/uL 150-450 [facility] Work Phone: CNPNon 09-21-2021 LAMINN Telephone (AGGENS1) PEDRO PABLO SIERRA ([id number]) 1950 M T Date Time Provider Department [...] Date Reviewed: 09/15/2021 Reviewed by: Anjel Braga APRN.PHOTOGRAPHIC TECHNICIAN - Fully Assessed Reason for Visit: Appointment [...] [J43.9] - COMPOUNDED PRESCRIPTION Aerosol supplies Dx:J44.1 NPI#[id number] - COMPOUNDED PRESCRIPTION NEBULIZER FOR HOME USE. [...] left fem (more content not included)... Normal [facility] Absolute lymphocyte counton 09-17-2021 Lymphocytes Auto (Unsp spec) [#/Vol] 1.19 10*3/uL 0.83-4.51 [facility] Work Phone: Basophil percentageon 2021 Basophil percentage 0-5 SEEN /hpf 0-5 [facility] Work Phone: Basophils/100 WBC (Bld) 1.6 % 0-1 [facility] Work Phone: Bilirubin [Mass/Vol] 0.30 mg/dL 0.20-1.00 [facility] Work Phone: Comment on above: For patients on eltr ombopag therapy, use of Dimension [place] TBIL is not recommended. Chloride [Moles/Vol] 104 mmol/L 98-107 [facility] Work Phone: Eosinophils/100 WBC (Bld) 1.1 % 0-5 [facility] Work Phone: Glucose [Mass/Vol] 100 mg/dL 74-106 [facility] Work Phone: Comment on above: Fasting Glucose resu lt from 100 to 125 mg/dL suggests IMPAIRED HOMEOSTASIS per A.D.A. criteria. Neutrophils (Bld) [#/Vol] 5.2 10*3/uL 2.0-7.7 [facility] Work Phone: Neutrophils/100 WBC (Bld) 73.0 % 47-70 [facility] Work Phone: Potassium [Moles/Vol] 4.2 mmol/L 3.5-5.1 [facility] Work Phone: Protein [Mass/Vol] 7.3 g/dL 6.4-8.2 [facility] Work Phone: [phone] Sodium [Moles/Vol] 136 mmol/L 136-145 [facility] Work Phone: [phone] WBC (Bld) [#/Vol] 7.1 10*3/uL 4.4-11.0 [facility] Work Phone: [phone] Bilirubin Test strip Ql (U)o n 09-17-2021 Bilirubin Ql (U) Negative Negative [facility] Work Phone: [phone] Blood erythrocytes count (nu mber/volume)on 09-17-2021 RBC (Bld) [#/Vol] 3.50 10*6/uL 4.6-6.2 [facility] Work Phone: [phone] Blood hemoglobin measurement (mass/volume)on 09-17-2021 Hemoglobin (Bld) [Mass/Vol] 7.9 g/dL 13.0-16.5 [facility] Work Phone: [phone] Blood lymphocytes/100 leukoc yteson 09-17-2021 Lymphocytes/100 WBC (Bld) 16.9 % 19-41 [facility] Work Phone: [phone] Blood monocytes/100 leukocyt eson 09-17-2021 Monocytes/100 WBC (Bld) 7.1 % 0-10 [facility] Work Phone: [phone] Blood platelet mean volumeon 09-17-2021 Platelet mean volume (Bld) [Entitic vol] 9.5 fL 6.2-12.0 [facility] Work Phone: [phone] Determination of erythrocyte mean corpuscular volume (MCV)on 09-17-2021 MCV (RBC) [Entitic vol] 75.1 fL 80-94 [facility] Work Phone: [phone] Hematocrit Auto (Bld) [Volum e fraction]on 09-17-2021 Hematocrit (Bld) [Volume fraction] 26.3 % 40-54 [facility] Work Phone: [phone] INR in Blood by Coagulation assayon 09-17-2021 INR Coag (Bld) [Relative time] 1.3 {INR} [facility] Work Phone: Ketones Test strip Ql (U)on 09-17-2021 Ketones Ql (U) Negative Negative [facility] Work Phone: [phone] Laboratory - Chemistry and C hemistry - challengeon 09-17-2021 ALP [Catalytic activity/Vol] 79 U/L 45-117 [facility] Work Phone: [phone] ALT [Catalytic activity/Vol] 36 U/L 16-61 [facility] Work Phone: [phone] CO2 [Moles/Vol] 25.0 mmol/L 21.0-32.0 [facility] Work Phone: [phone] Globulin (S) [Mass/Vol] 3.5 g/dL 2.2-4.2 [facility] Work Phone: [phone] Lipase [Catalytic activity/Vol] 102 U/L 73-393 [facility] Work Phone: [phone] Urea nitrogen/Creatinine [Mass ratio] 12.5 mg/mg 10-20 [facility] Work Phone: [phone] Laboratory - Coagulationon 0 09-17-2021 PT Coag (PPP) [Time] 15.4 s 11.7-14.9 [facility] Work Phone: Laboratory - Hematology and Cell countson 09-17-2021 Erythrocyte distribution width (RBC) [Entitic vol] 53.1 fL 35.1-43.9 [facility] Work Phone: [phone] Erythrocyte distribution width (RBC) [Ratio] 19.6 % 11.6-14.6 [facility] Work Phone: [phone] Immature granulocytes/100 WBC (Bld) 0.300 % 0.0-0.9 [facility] Work Phone: [phone] Comment on above: IG% - Immature Granu locytes (promyelocytes, myelocytes and metamyelocytes) > 1% indicates that a LEFT SHIFT is Present. MCH (RBC) [Entitic mass] 22.6 pg 27.0-32.0 [facility] Work Phone: Nucleated RBC/100 WBC (Bld) [Ratio] 0 % 0-5 [facility] Work Phone: [phone] MCHC Auto (RBC) [Mass/Vol]on 09-17-2021 MCHC (RBC) [Mass/Vol] 30.0 g/dL 32-36 [facility] Work Phone: Mucus LM Ql (Urine sed)on Mucus Ql (Urine sed) 0 SEEN /hpf [facility] Work Phone: [phone] Nitrite Test strip Ql (U)on 09-17-2021 Nitrite Ql (U) Positive Negative [facility] Work Phone: [phone] Panel Informationon 09-17 Estimated Creatinine Clearance Calc 57.68 ml/min [facility] Work Phone: [phone] Estimated GFR (MDRD) Amer 83 mL/min >60 [facility] Work Phone: [phone] Comment on above: GFR Calc Estimated GFR (MDRD) Non-Af Amer 68 mL/min >60 [facility] Work Phone: [phone] Comment on above: Non- GFR Calc Platelets bldon 09-17-2021 Platelets (Bld) [#/Vol] 342 10*3/uL 150-450 [facility] Work Phone: Protein Test strip Ql (U)on 09-17-2021 Protein Ql (U) 15 mg/dl Negative [facility] Work Phone: [phone] Serum or plasma albumin luis urement (mass/volume)on 09-17-2021 Albumin [Mass/Vol] 3.8 g/dL 3.2-5.0 [facility] Work Phone: [phone] Serum or plasma albumin/glob ulin mass ratioon 09-17-2021 Albumin/Globulin [Mass ratio] 1.1 {ratio} 0.9-2.4 [facility] Work Phone: [phone] Serum or plasma calcium luis urement (mass/volume)on 04-01-2022 Calcium [Mass/Vol] 8.7 mg/dL 8.5-10.1 [facility] Work Phone: Serum or plasma creatinine m easurement (mass/volume)on 09-17-2021 Creatinine [Mass/Vol] 1.12 mg/dL 0.70-1.30 [facility] Work Phone: Comment on above: The validity of the calculated GFR & GFRAA in patients over 70 years has not been determined. Clinical correlation is essential. Serum or plasma urea nitroge n measurement (mass/volume)on 09-17-2021 Urea nitrogen [Mass/Vol] 14 mg/dL 7-18 [facility] Work Phone: Squamous epithelial cells de tection in urine sediment by light microscopyon 09-17-2021 Epithelial cells.squamous LM Ql (Urine sed) 0-5 SEEN /hpf 0-5 [facility] Work Phone: Thin prep Papanicolaou smear with manual screeningon 09-17-2021 Thin prep Papanicolaou smear with manual screening 19 U/L 15-37 [facility] Work Phone: Thin prep Papanicolaou smear with manual screening 7 5-15 [facility] Work Phone: Urine blood detectionon 04-0 RBC Ql (U) Negative Negative [facility] Work Phone: RBC Ql (U) 0 SEEN /hpf 0-5 [facility] Work Phone: Urine clarityon 09-17-2021 Clarity (U) Clear Clear [facility] Work Phone: Urine color determinationon 09-17-2021 Color (U) Yellow Yellow [facility] Work Phone: [phone] Urine glucose detectionon Glucose Ql (U) Normal mg/dl Normal [facility] Work Phone: [phone] Urine leukocyte esterase det ection by dipstickon 09-17-2021 Leukocyte esterase Test strip Ql (U) 25 /ul Negative [facility] Work Phone: [phone] Urine pHon 09-17-2021 pH (U) 6.0 [pH] 5.0 - 8.0 [facility] Work Phone: Urine sediment bacteria coun t by microscopy (number/high power field)on 09-17-2021 Bacteria LM.HPF (Urine sed) [#/Area] 1 /[HPF] None Seen [facility] Work Phone: Urine specific gravity measu rementon 09-17-2021 Specific gravity (U) [Rel density] 1.010 1.002-1.030 [facility] Work Phone: Urobilinogen Auto test strip Ql (U)on 09-17-2021 Urobilinogen Ql (U) Normal mg/dl Normal [facility] Work Phone: PT panel Coag (PPP)on 2021 INR Coag (Bld) [Relative time] 2.1 (EXT) 2.0 - 3.0 [facility] UA DIP, URINE (POC)on 2021 BILIRUBIN UA (POCT) Negative Negative [facility] CLARITY UA (POCT) Clear [facility] COLOR UA (POCT) Yellow [facility] GLUCOSE UA (POCT) Negative Negative mg/dL [facility] HEMOGLOBIN/BLOOD UA (POCT) Trace-lysed Abnormal Negative [facility] KETONE UA (POCT) Negative Negative mg/dL [facility] LEUKOCYTES UA (POCT) Small Abnormal Negative [facility] NITRITE UA (POCT) Positive Abnormal Negative [facility] PH UA (POCT) 5.5 4.5 - 8.0 [facility] Protein Ql (U) 100 mg/dL Abnormal Negative mg/dL [facility] SPECIFIC GRAVITY UA (POCT) 1.020 1.005 - 1.030 [facility] UROBILINOGEN UA (POCT) 0.2 E.U./dL Malaika l E.U./dL [facility] Glucose Glucometer (dC) [M ass/Vol]on 08-21-2021 Glucose [Mass/Vol] 102 mg/dL 74-106 [facility] Work Phone: Comment on above: MANAGEMENT OF PATIEN T CARE PER NURSING PROTOCOL INR in Blood by Coagulation assayon 08-21-2021 INR Coag (Bld) [Relative time] 1.2 {INR} [facility] Work Phone: Laboratory - Coagulationon 0 08-21-2021 PT Coag (PPP) [Time] 14.9 s 11.7-14.9 [facility] Work Phone: Absolute lymphocyte counton 08-20-2021 Lymphocytes Auto (Unsp spec) [#/Vol] 0.77 10*3/uL 0.83-4.51 [facility] Work Phone: Basophil percentageon 2021 Basophils/100 WBC (Bld) 0.8 % 0-1 [facility] Work Phone: Bilirubin [Mass/Vol] 0.70 mg/dL 0.20-1.00 [facility] Work Phone: Comment on above: For patients on eltr ombopag therapy, use of Dimension [place] TBIL is not recommended. Chloride [Moles/Vol] 107 mmol/L 98-107 [facility] Work Phone: Eosinophils/100 WBC (Bld) 2.2 % 0-5 [facility] Work Phone: Glucose [Mass/Vol] 99 mg/dL 74-106 [facility] Work Phone: Neutrophils (Bld) [#/Vol] 4.9 10*3/uL 2.0-7.7 [facility] Work Phone: Neutrophils/100 WBC (Bld) 77.2 % 47-70 [facility] Work Phone: Potassium [Moles/Vol] 3.7 mmol/L 3.5-5.1 [facility] Work Phone: Protein [Mass/Vol] 6.2 g/dL 6.4-8.2 [facility] Work Phone: Sodium [Moles/Vol] 139 mmol/L 136-145 [facility] Work Phone: WBC (Bld) [#/Vol] 6.3 10*3/uL 4.4-11.0 [facility] Work Phone: [phone] Blood erythrocytes count (nu mber/volume)on 08-20-2021 RBC (Bld) [#/Vol] 3.72 10*6/uL 4.6-6.2 [facility] Work Phone: [phone] Blood hemoglobin measurement (mass/volume)on 08-20-2021 Hemoglobin (Bld) [Mass/Vol] 7.8 g/dL 13.0-16.5 [facility] Work Phone: [phone] Blood lymphocytes/100 leukoc yteson 08-20-2021 Lymphocytes/100 WBC (Bld) 12.2 % 19-41 [facility] Work Phone: [phone] Blood monocytes/100 leukocyt eson 08-20-2021 Monocytes/100 WBC (Bld) 6.8 % 0-10 [facility] Work Phone: [phone] Blood platelet mean volumeon 08-20-2021 Platelet mean volume (Bld) [Entitic vol] 9.7 fL 6.2-12.0 [facility] Work Phone: Determination of erythrocyte mean corpuscular volume (MCV)on 08-20-2021 MCV (RBC) [Entitic vol] 72.8 fL 80-94 [facility] Work Phone: Hematocrit Auto (Bld) [Volum e fraction]on 08-20-2021 Hematocrit (Bld) [Volume fraction] 27.1 % 40-54 [facility] Work Phone: Laboratory - Chemistry and C hemistry - challengeon 08-20-2021 ALP [Catalytic activity/Vol] 224 U/L 45-117 [facility] Work Phone: [phone] ALT [Catalytic activity/Vol] 335 U/L 16-61 [facility] Work Phone: [phone] CO2 [Moles/Vol] 27.0 mmol/L 21.0-32.0 [facility] Work Phone: Globulin (S) [Mass/Vol] 3.5 g/dL 2.2-4.2 [facility] Work Phone: [phone] Urea nitrogen/Creatinine [Mass ratio] 11.9 mg/mg 10-20 [facility] Work Phone: [phone] Laboratory - Hematology and Cell countson 08-20-2021 Erythrocyte distribution width (RBC) [Entitic vol] 50.8 fL 35.1-43.9 [facility] Work Phone: [phone] Erythrocyte distribution width (RBC) [Ratio] 19.5 % 11.6-14.6 [facility] Work Phone: [phone] Immature granulocytes/100 WBC (Bld) 0.800 % 0.0-0.9 [facility] Work Phone: [phone] Comment on above: IG% - Immature Granu locytes (promyelocytes, myelocytes and metamyelocytes) > 1% indicates that a LEFT SHIFT is Present. MCH (RBC) [Entitic mass] 21.0 pg 27.0-32.0 [facility] Work Phone: [phone] Nucleated RBC/100 WBC (Bld) [Ratio] 0 % 0-5 [facility] Work Phone: [phone] MCHC Auto (RBC) [Mass/Vol]on 08-20-2021 MCHC (RBC) [Mass/Vol] 28.8 g/dL 32-36 [facility] Work Phone: [phone] Panel Informationon 08-20 Estimated Creatinine Clearance Calc 63.96 ml/min [facility] Work Phone: [phone] Estimated GFR (MDRD) Amer 93 mL/min >60 [facility] Work Phone: [phone] Comment on above: GFR Calc Estimated GFR (MDRD) Non-Af Amer 77 mL/min >60 [facility] Work Phone: [phone] Comment on above: Non- GFR Calc Platelets bldon 08-20-2021 Platelets (Bld) [#/Vol] 409 10*3/uL 150-450 [facility] Work Phone: [phone] Serum or plasma albumin luis urement (mass/volume)on 08-20-2021 Albumin [Mass/Vol] 2.7 g/dL 3.2-5.0 [facility] Work Phone: [phone] Serum or plasma albumin/glob ulin mass ratioon 08-20-2021 Albumin/Globulin [Mass ratio] 0.8 {ratio} 0.9-2.4 [facility] Work Phone: Serum or plasma calcium luis urement (mass/volume)on 08-20-2021 Calcium [Mass/Vol] 7.9 mg/dL 8.5-10.1 [facility] Work Phone: Serum or plasma creatinine m easurement (mass/volume)on 08-20-2021 Creatinine [Mass/Vol] 1.01 mg/dL 0.70-1.30 [facility] Work Phone: Comment on above: The validity of the calculated GFR & GFRAA in patients over 70 years has not been determined. Clinical correlation is essential. Serum or plasma urea nitroge n measurement (mass/volume)on 08-20-2021 Urea nitrogen [Mass/Vol] 12 mg/dL 7-18 [facility] Work Phone: [phone] Thin prep Papanicolaou smear with manual screeningon 08-20-2021 Thin prep Papanicolaou smear with manual screening 150 U/L 15-37 [facility] Work Phone: Thin prep Papanicolaou smear with manual screening 5 5-15 [facility] Work Phone: [phone] Laboratory - Coagulationon 0 08-19-2021 aPTT Coag (Bld) [Time] 37.1 s 24.1-36.2 [facility] Work Phone: No Panel Informationon 08-19 Troponin I High Sensitivity 15 pg/mL 3.0-78.0 [facility] Work Phone: Comment on above: Please Note: New [place] t Units and Gender Specific Reference Ranges. For more information see Policy Stat Procedure [place] High Sensitivity Troponin (TNIH) and attachments. Whole blood hemoglobin A1c/t otal hemoglobin ratio (mass fraction)on 08-19-2021 HbA1c (Bld) [Mass fraction] 6.0 % 3.8-5.6 [facility] Work Phone: Comment on above: Normal < 5.7 % Predi abetic 5.7 - 6.4 % Diabetic >or= 6.5 % Please note range changes. Blood manual differential co mment interpretation (narrative result)on 08-18-2021 Manual differential comment Ghassan (Bld) [Interp] SCANNED [facility] Work Phone: Comment on above: LYMPHOPENIA NOTED Direct bilirubinon Bilirubin.direct [Mass/Vol] 0.89 mg/dL 0.00-0.30 [facility] Work Phone: Laboratory - Chemistry and C hemistry - challengeon 08-18-2021 Lipase [Catalytic activity/Vol] 134 U/L 73-393 [facility] Work Phone: Absolute lymphocyte counton 08-12-2021 Lymphocytes Auto (Unsp spec) [#/Vol] 0.44 10*3/uL 0.83-4.51 [facility] Work Phone: Basophil percentageon 2021 Basophils/100 WBC (Bld) 0.6 % 0-1 [facility] Work Phone: Bilirubin [Mass/Vol] 0.30 mg/dL 0.20-1.00 [facility] Work Phone: Comment on above: For patients on eltr ombopag therapy, use of Dimension [place] TBIL is not recommended. Chloride [Moles/Vol] 101 mmol/L 98-107 [facility] Work Phone: Eosinophils/100 WBC (Bld) 0.0 % 0-5 [facility] Work Phone: Glucose [Mass/Vol] 162 mg/dL 74-106 [facility] Work Phone: Comment on above: Fasting Glucose resu lt greater than or equal to 126 mg/dL suggests DIABETES MELLITUS per A.D.A. criteria. Neutrophils (Bld) [#/Vol] 9.7 10*3/uL 2.0-7.7 [facility] Work Phone: Neutrophils/100 WBC (Bld) 93.3 % 47-70 [facility] Work Phone: Potassium [Moles/Vol] 3.8 mmol/L 3.5-5.1 [facility]: Protein [Mass/Vol] 8.1 g/dL 6.4-8.2 [facility] Work Phone: Sodium [Moles/Vol] 135 mmol/L 136-145 [facility] Work Phone: WBC (Bld) [#/Vol] 10.4 10*3/uL 4.4-11.0 [facility] Work Phone: Blood erythrocytes count (nu mber/volume)on 08-12-2021 RBC (Bld) [#/Vol] 4.84 10*6/uL 4.6-6.2 [facility] Work Phone: Blood hemoglobin measurement (mass/volume)on 08-12-2021 Hemoglobin (Bld) [Mass/Vol] 10.4 g/dL 13.0-16.5 [facility] Work Phone: Blood lymphocytes/100 leukoc yteson 08-12-2021 Lymphocytes/100 WBC (Bld) 4.2 % 19-41 [facility] Work Phone: Blood monocytes/100 leukocyt eson 08-12-2021 Monocytes/100 WBC (Bld) 1.4 % 0-10 [facility] Work Phone: Blood platelet mean volumeon 08-12-2021 Platelet mean volume (Bld) [Entitic vol] 10.3 fL 6.2-12.0 [facility] Work Phone: Determination of erythrocyte mean corpuscular volume (MCV)on 08-12-2021 MCV (RBC) [Entitic vol] 74.8 fL 80-94 [facility] Work Phone: Hematocrit Auto (Bld) [Volum e fraction]on 08-12-2021 Hematocrit (Bld) [Volume fraction] 36.2 % 40-54 [facility] Work Phone: INR in Blood by Coagulation assayon 08-12-2021 INR Coag (Bld) [Relative time] 2.1 {INR} [facility] Work Phone: Laboratory - Chemistry and C hemistry - challengeon 08-12-2021 ALP [Catalytic activity/Vol] 70 U/L 45-117 [facility] Work Phone: ALT [Catalytic activity/Vol] 19 U/L 16-61 [facility] Work Phone: CO2 [Moles/Vol] 26.0 mmol/L 21.0-32.0 [facility] Work Phone: Globulin (S) [Mass/Vol] 3.9 g/dL 2.2-4.2 [facility] Work Phone: Lipase [Catalytic activity/Vol] 46 U/L 73-393 [facility] Work Phone: Urea nitrogen/Creatinine [Mass ratio] 9.0 mg/mg 10-20 [facility] Work Phone: Laboratory - Coagulationon 0 08-12-2021 PT Coag (PPP) [Time] 23.1 s 11.7-14.9 [facility] Work Phone: Laboratory - Hematology and Cell countson 08-12-2021 Anisocytosis Ql (Bld) 1+ [facility] Work Phone: Erythrocyte distribution width (RBC) [Entitic vol] 50.2 fL 35.1-43.9 [facility] Work Phone: Erythrocyte distribution width (RBC) [Ratio] 18.7 % 11.6-14.6 [facility] Work Phone: Immature granulocytes/100 WBC (Bld) 0.500 % 0.0-0.9 [facility] Work Phone: Comment on above: IG% - Immature Granu locytes (promyelocytes, myelocytes and metamyelocytes) > 1% indicates that a LEFT SHIFT is Present. MCH (RBC) [Entitic mass] 21.5 pg 27.0-32.0 [facility] Work Phone: Nucleated RBC/100 WBC (Bld) [Ratio] 0 % 0-5 [facility] Work Phone: [phone] MCHC Auto (RBC) [Mass/Vol]on 08-12-2021 MCHC (RBC) [Mass/Vol] 28.7 g/dL 32-36 [facility] Work Phone: No Panel Informationon 08-12 Estimated Creatinine Clearance Calc 58.20 ml/min [facility] Work Phone: Estimated GFR (MDRD) Amer 84 mL/min >60 [facility] Work Phone: Comment on above: GFR Calc Estimated GFR (MDRD) Non-Af Amer 69 mL/min >60 [facility] Work Phone: Comment on above: Non- GFR Calc Platelets bldon 08-12-2021 Platelets (Bld) [#/Vol] 401 10*3/uL 150-450 [facility] Work Phone: Serum or plasma albumin luis urement (mass/volume)on 08-12-2021 Albumin [Mass/Vol] 4.2 g/dL 3.2-5.0 [facility] Work Phone: [phone] Serum or plasma albumin/glob ulin mass ratioon 08-12-2021 Albumin/Globulin [Mass ratio] 1.1 {ratio} 0.9-2.4 [facility] Work Phone: [phone] Serum or plasma calcium luis urement (mass/volume)on 08-12-2021 Calcium [Mass/Vol] 9.4 mg/dL 8.5-10.1 [facility] Work Phone: [phone] Serum or plasma creatinine m easurement (mass/volume)on 08-12-2021 Creatinine [Mass/Vol] 1.11 mg/dL 0.70-1.30 [facility] Work Phone: Comment on above: The validity of the calculated GFR & GFRAA in patients over 70 years has not been determined. Clinical correlation is essential. Serum or plasma urea nitroge n measurement (mass/volume)on 08-12-2021 Urea nitrogen [Mass/Vol] 10 mg/dL 7-18 [facility] Work Phone: Thin prep Papanicolaou smear with manual screeningon 08-12-2021 Thin prep Papanicolaou smear with manual screening 1+ [facility] Work Phone: Thin prep Papanicolaou smear with manual screening 15 U/L 15-37 [facility] Work Phone: Thin prep Papanicolaou smear with manual screening 8 5-15 [facility] Work Phone: CNCOon 02-11-2021 CNCO Letter Text Normal [facility] CNPNon 02-11-2021 CNPN Telephone (SPAGWO) PEDRO PABLO SIERRA ([id number]) 1950 M Date Time Provider Department 02/11/21 [...] [J43.9] - COMPOUNDED PRESCRIPTION Aerosol supplies Dx:J44.1 NPI#[id number] - ipratropium-albuterol (DUONEB) 0.5 mg-3 mg(2.5 mg [...] AND FOLLOW-UP (more content not included)... Normal [facility] XR Femur - left AP and Later lonny 11-11-2020 IMPRESSION: 1. No radiographic evidence of acute osseous abnormality. 2. Atherosclerotic disease. Graphic Art Designer: SHANELL Transcribe Date/Time: Nov 11 2020 10:50A Dictated by : RONALD COLUNGA MD This examination was interpreted and the report reviewed and electronically signed by: RONALD COLUNGA MD on Nov 11 2020 10:53AM [facility] DIVISION OF RADIOLOGY * * [...] of acute osseous abnormality. 2. Atherosclerotic disease. Graphic Art Designer: SHANELL Transcribe Date/Time: Nov 11 2020 10:50A Dictated by : RONALD COLUNGA MD This examination was interpreted and the report reviewed and electronically signed by: RONALD COLUNGA MD on Nov 11 2020 10:53AM EST [facility] Radiology Study observation (narrative) [facility] XR Femur - left AP and Later alOrdered By: Ccf Provider on 11-11-2020 [facility] CBC and Differentialon 04-10 Abs Baso 0.10 k/uL Normal <0.11 [facility] Abs Bee 0.44 k/uL Normal <0.87 [facility] Abs Neut 4.50 k/uL Normal 1.45-7.50 [facility] Absolute nRBC <0.01 Normal <0.01 [facility] Basophils/100 WBC (Bld) 1.4 % Normal [facility] DTYPE Auto Diff Normal [facility] Eosinophils (Bld) [#/Vol] 0.06 10*3/uL Normal <0.46 [facility] Eosinophils/100 WBC (Bld) 0.9 % Normal [facility] Erythrocyte distribution width (RBC) [Ratio] 21.0 % High 11.5-15.0 [facility] Hematocrit (Bld) [Volume fraction] 39.7 % Normal 39.0-51.0 [facility] Hemoglobin (Bld) [Mass/Vol] 11.3 g/dL Low 13.0-17.0 [facility] Lymphocytes (Bld) [#/Vol] 1.81 10*3/uL Normal 1.00-4.00 [facility] Lymphocytes/100 WBC (Bld) 26.2 % Normal [facility] MCH (RBC) [Entitic mass] 21.6 pG Low 26.0-34.0 [facility] MCHC (RBC) [Mass/Vol] 28.5 g/dL Low 30.5-36.0 [facility] MCV (RBC) [Entitic vol] 76.1 fL Low 80.0-100.0 [facility] Monocytes/100 WBC (Bld) 6.4 % Normal [facility] Neutrophils/100 WBC (Bld) 65.1 % Normal [facility] NRBCs 0.0 /100 WBC Normal 0 [facility] Platelet mean volume (Bld) [Entitic vol] 9.9 fL Normal 9.0-12.7 [facility] Platelets (Bld) [#/Vol] 302 10*3/uL Normal 150-400 [facility] RBC (Bld) [#/Vol] 5.22 10*6/uL Normal 4.20-6.00 [facility] WBC (Bld) [#/Vol] 6.91 10*3/uL Normal 3.70-11.[address] [facility] [address] BRAIN WO IVCONon 04-10-20 CT BRAIN WO IVCON * * *Final Report* * * DATE OF EXAM: Apr 10 2020 3:59PM [facility] 0504 - CT BRAIN WO IVCON [...] base and imaged soft tissues are unremarkable. Online Advertising Director (topogram) images: No additional findings. IMPRESSION: NO CT EVIDENCE OF ACUTE INTRACRANIAL PROCESS. Graphic Art Designer: SHANELL Transcribe Date/Time: Apr 10 2020 4:01P Dictated by : REBECCA BRYAN MD This examination was interpreted and the report reviewed and electronically signed by: REBECCA BRYAN MD on Apr 10 2020 4:04PM EST [id number] Normal [facility] Comp Metabolic Panelon 04-10 Albumin [Mass/Vol] 5.2 g/dL High 3.9-4.9 [facility] ALP [Catalytic activity/Vol] 65 U/L Normal 38-113 [facility] ALT [Catalytic activity/Vol] 19 U/L Normal 10-54 [facility] Anion gap [Moles/Vol] 10 mmol/L Normal 9-18 [facility] AST [Catalytic activity/Vol] 17 U/L Normal 14-40 [facility] Bilirubin [Mass/Vol] mg/dL Low 0.2-1.3 [facility] Calcium [Mass/Vol] 9.8 mg/dL Normal 8.5-10.2 [facility] Chloride [Moles/Vol] 99 mmol/L Normal 97-105 [facility] CO2 [Moles/Vol] 30 mmol/L Normal 22-30 [facility] Creatinine [Mass/Vol] 1.05 mg/dL Normal 0.73-1.22 [facility] eGFR- Amer. >60 Normal [facility] GFR/1.73 sq M predicted among non-blacks MDRD (S/P/Bld) [Vol rate/Area] mL/min/{1.73_m2} Normal [facility] Comment on above: Result Comment: [...] GFR. Glucose [Mass/Vol] 106 mg/dL High 74-99 [facility] Comment on above: Result Comment: The [place] Diabetes Association (ADA) provides guidance for cutoff [...] Standards of Medical Care in Diabetes 2016, [place] [employer] Association. Diabetes Care. 2016.39(Suppl 1). Potassium [Moles/Vol] 3.7 mmol/L Normal 3.7-5.1 [facility] Protein [Mass/Vol] 7.6 g/dL Normal 6.3-8.0 [facility] Sodium [Moles/Vol] 139 mmol/L Normal 136-144 [facility] Urea nitrogen [Mass/Vol] 17 mg/dL Normal 9-24 [facility] ED NOTEon 04-10-2020 ED NOTE HNO ID: [id number] Author: Delaney NessRn) SEYMOUR Cortes Service: ? [...] ED in no acute distress with family. [facility] ED NOTE HNO ID: [id number] Author: Maddi NessRn) SEYMOUR Giles Service: ? Author Type: Registered Nurse Type: ED Notes Filed: 04/10/2020 4:08 PM Note Text: Patient to XR and CT. [facility] ED NOTE HNO ID: [id number] Author: Evelia (Medic) Shanelle Rios Service: ? 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 Sent pt down to be seen in ER 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 (S/P/Bld) [Vol rate/Area] mL/min/{1.73_m2} Normal >60 [facility] Comment on above: Performed By: #### C BC, PT, BMP ####[place] [phone] Glucose [Mass/Vol] 151 mg/dL High 65-100 [facility] Comment on above: Performed By: #### C BC, PT, BMP ####[place] [id number] [place] [phone] Potassium [Moles/Vol] 3.6 mmol/L Normal 3.5-5.0 [facility] Comment on above: Performed By: #### C BC, PT, BMP ####[place] [phone] Sodium [Moles/Vol] 135 mmol/L Normal 135-146 [facility] Comment on above: Performed By: #### C BC, PT, BMP ####[place] [phone] Urea nitrogen [Mass/Vol] 8 mg/dL Low 10-25 [facility] Comment on above: Performed By: #### C BC, PT, BMP ####[place] [phone] CASE MANAGEMon 10-12-2019 CASE MANAGEM HNO ID: [id number] Author: Carly Hutchison) SEYMOUR Man Service: Case Management Author Type: Registered Nurse Type: Care Mgt Progress Note Filed: 10/12/2019 12:39 PM Note Text: CARE MANAGEMENT PROGRESS NOTE SERVICE DATE: 10/12/2019 SERVICE TIME: 1230 LOS: 4 days Needs Prior to Discharge: To Be Determined Clinicals faxed to [facility] SIGNATURE: Carly Man RN,BSN PATIENT NAME: Pedro Pablo Sierra DATE: October 12, 2019 TIME: 12:38 PM PAGER/CONTACT #: [phone] [facility] CASE MANAGEM HNO ID: [id number] Author: Carly Hutchison) Donovan RN Service: Case [...] 12, 2019 TIME: 10:14 AM PAGER/CONTACT #: [phone] Normal [facility] CBCon 10-12-2019 Erythrocyte distribution width (RBC) [Ratio] 16.0 % High 11.5-15.0 [facility] Comment on above: Performed By: #### C BC, PT, BMP ####[place] [phone] Hematocrit (Bld) [Volume fraction] 29.3 % Low 39.0-51.0 [facility] Comment on above: Performed By: #### C LARRY, PT, BMP ####[place] [phone] Hemoglobin (Bld) [Mass/Vol] 9.7 g/dL Low 13.0-17.0 [facility] Comment on above: Performed By: #### C BC, PT, BMP ####[place] [phone] MCH (RBC) [Entitic mass] 30.3 pG Normal 26.0-34.0 [facility] Comment on above: Performed By: #### C BC, PT, BMP ####[place] [phone] MCHC (RBC) [Mass/Vol] 33.1 g/dL Normal 30.5-36.0 [facility] Comment on above: Performed By: #### C BC, PT, BMP ####[address] [phone] MCV (RBC) [Entitic vol] 91.6 fL Normal 80.0-100.0 [facility] Comment on above: Performed By: #### C BC, PT, BMP ####[address] [phone] Platelet mean volume (Bld) [Entitic vol] 10.2 fL Normal 9.0-12.7 [facility] Comment on above: Performed By: #### C BC, PT, BMP ####[place] [phone] Platelets (Bld) [#/Vol] 173 10*3/uL Normal 150-400 [facility] Comment on above: Performed By: #### C BC, PT, BMP ####[place] [phone] RBC (Bld) [#/Vol] 3.20 10*6/uL Low 4.20-6.00 [facility] Comment on above: Performed By: #### C BC, PT, BMP ####[place] [phone] WBC (Bld) [#/Vol] 5.98 10*3/uL Normal 3.70-11.00 [facility] Comment on above: Performed By: #### C BC, PT, BMP ####[place] [phone] NURSING PROGon 10-12-2019 NURSING PROG HNO ID: [id number] Author: Daphney (Rn) SEYMOUR Baron Service: Nursing Author Type: Registered Nurse Type: Nursing Progress Note Filed: 10/12/2019 4:25 PM Note Text: Nursing Progress Note Patient Name: Pedro Pablo Sierra Patient Location: [facility]/ __ Daily Note: 0900: Pt up to chair with 2 assist and walker. Pt states left leg is painful, but able to bear weight. Pt does not want to be discharged at this time, PT/OT recommending skilled, pt refusing and wanting home care around the clock. Pt requesting robitussin for cough, given at 0841 per order. 1130: Pt assisted to bathroom with geriatric nursing assistant and walker. Pt was able to ambulate from bathroom to bed using walker with standby assist. 1610: Incision to left groin oozing serosang drainage. Gown saturated and needed to be changed. Abd and paper tape applied to cover and collect drainage. Pt c/o pain to left groin, 01/26. Medicated with 10mg po oxycodone. This note was completed by: Daphney Baron RN [facility] PROGRESSon 10-12-2019 PROGRESS HNO ID: [id number] Author: Elly (Binu Brown Service: Vascular Surgery [...] patient (fl,oh) 10/08/19 1645 pneumatic compression stockings (ms,oh) VTE Prophylaxis: on AC ALLERGIES No Known [...] w/ rest pain and is s/p L HANDS PARTER EA w/ bovine patch, L RADHA and EIA thrombectomy, L CI and EI stenting 10/07 c/b thrombosis s/p : EIA to HANDS PARTER bypass graft w. Ringed PTFE 10/09. Plan: [...] CRISPIN stenting on 10/23, UC, CAD previous MO, DM, HTN, HLD, COPD Overall Course: 63 [...] and weekends, please contact the General Surgery Equipment Technician pager, [phone] Normal [facility] Protimeon 10-12-2019 PT Coag (PPP) [Time] 15.6 s High 9.7-13.0 [facility] Comment on above: Performed By: #### C BC, PT, BMP ####[facility] [place], [place] [phone] PT Coag (PPP) [Time] 1.5 s High 0.9-1.3 [facility] Comment on above: Result Comment: Teri min K Antagonist (VKA) Therapeutic Range: INR 2 to 3 (Target INR of 2.5) Note: For patients treated with VKA drugs, such as warfarin, the [place] [employer] 2012 Guideline recommends [...] Performed By: #### C LARRY, PT, BMP ####[facility] [place], [place] [phone] ANES POSTPROC EVALon 020 ANES POSTPROC EVAL HNO ID: [id number] Author: Cassie Zavala Service: ? Author Type: [...] October 11, 2019 TIME: 7:41 AM CSN: [id number] Normal [facility] Basic Metabolic Panlon 10-10 Anion gap [Moles/Vol] 9 mmol/L Normal 9-18 [facility] Comment on above: Performed By: #### C LARRY, BMP, MG1, PHOS ####[facility] [place], [place] [phone] Calcium [Mass/Vol] 7.7 mg/dL Low 8.5-10.5 [facility] Comment on above: Performed By: #### C BC, BMP, MG1, PHOS ####[phone] Chloride [Moles/Vol] 101 mmol/L Normal 98-110 [facility] Comment on above: Performed By: #### C BC, BMP, MG1, PHOS ####[place] [phone] CO2 [Moles/Vol] 26 mmol/L Normal 23-32 [facility] Comment on above: Performed By: #### C BC, BMP, MG1, PHOS ####[place] [phone] Creatinine [Mass/Vol] 0.63 mg/dL Low 0.70-1.40 [facility] Comment on above: Performed By: #### C BC, BMP, MG1, PHOS ####[place] [phone] eGFR- Amer. >60 Normal >60 [facility] Comment on above: Performed By: #### C BC, BMP, MG1, PHOS ####[place] [phone] GFR/1.73 sq M predicted among non-blacks MDRD (S/P/Bld) [Vol rate/Area] mL/min/{1.73_m2} Normal >60 [facility] Comment on above: Performed By: #### C BC, BMP, MG1, PHOS ####[place] [phone] Glucose [Mass/Vol] 107 mg/dL High 65-100 [facility] Comment on above: Performed By: #### C BC, BMP, MG1, PHOS ####[place] [phone] Potassium [Moles/Vol] 3.9 mmol/L Normal 3.5-5.0 [facility] Comment on above: Performed By: #### C BC, BMP, MG1, PHOS ####[facility] [place], [place] [phone] Sodium [Moles/Vol] 136 mmol/L Normal 135-146 [facility] Comment on above: Performed By: #### C BC, BMP, MG1, PHOS ####[place] [address] [place], [place] [phone] Urea nitrogen [Mass/Vol] 8 mg/dL Low 10-25 [facility] Comment on above: Performed By: #### C BC, BMP, MG1, PHOS ####[place] [address] [place], [place] [phone] CASE MGT INIT ASSESon 2019 CASE MGT INIT [facility] HNO ID: [id number] Author: Bri Hutchison) SEYMOUR Swann Service: Case Management Author Type: Registered Nurse Type: Care Mgt Initial Assessment Filed: 10/11/2019 2:43 PM Note Text: CARE MANAGEMENT PROGRESS NOTE SERVICE DATE: 10/11/2019 SERVICE TIME: 2:38 PM LOS: 3 days [place] of Choice Given: Yes Level of Care Discussed: Home Care Financial Disclosure Provided: Yes Financial Disclosure Comments: discussed Needs Prior to Discharge: To Be Determined;Home Care Order CM discussed with pt discharge planning. pt has his home set up for his needs with elevator and refusing rehab at this time due to Covid 19 risks. Pt was active with [facility] for nurse visit and prefers to continue. CM made referral via ascripts, pt will need F2F for PT/OT/SN at d/c. CM flagged weekend CM staff for potential d/c this weekend and will need AVS faxed at d/c to [phone]. CM to follow as needed. SIGNATURE: Bri Swann RN,BSN PATIENT NAME: Pedro Pablo Sierra DATE: October 11, 2019 TIME: 2:38 PM PAGER/CONTACT #: [phone] Normal [facility] CBCon 10-11-2019 Erythrocyte distribution width (RBC) [Ratio] 15.8 % High 11.5-15.0 [facility] Comment on above: Performed By: #### C BC, BMP, MG1, PHOS ####[place] [phone] Hematocrit (Bld) [Volume fraction] 27.2 % Low 39.0-51.0 [facility] Comment on above: Performed By: #### C BC, BMP, MG1, PHOS ####[place] [phone] Hemoglobin (Bld) [Mass/Vol] 8.9 g/dL Low 13.0-17.0 [facility] Comment on above: Performed By: #### C BC, BMP, MG1, PHOS ####[place] [phone] MCH (RBC) [Entitic mass] 29.4 pG Normal 26.0-34.0 [facility] Comment on above: Performed By: #### C BC, BMP, MG1, PHOS ####[place] [phone] MCHC (RBC) [Mass/Vol] 32.7 g/dL Normal 30.5-36.0 [facility] Comment on above: Performed By: #### C BC, BMP, MG1, PHOS ####[place] [phone] MCV (RBC) [Entitic vol] 89.8 fL Normal 80.0-100.0 [facility] Comment on above: Performed By: #### C BC, BMP, MG1, PHOS ####[place] [phone] Platelet mean volume (Bld) [Entitic vol] 9.9 fL Normal 9.0-12.7 [facility] Comment on above: Performed By: #### C BC, BMP, MG1, PHOS ####[place] [phone] Platelets (Bld) [#/Vol] 140 10*3/uL Low 150-400 [facility] Comment on above: Performed By: #### C BC, BMP, MG1, PHOS ####[place] [address] [place] [phone] RBC (Bld) [#/Vol] 3.03 10*6/uL Low 4.20-6.00 [facility] Comment on above: Performed By: #### C BC, BMP, MG1, PHOS ####[place] [address] [place] [phone] WBC (Bld) [#/Vol] 5.78 10*3/uL Normal 3.70-11.00 [facility] Comment on above: Performed By: #### C BC, BMP, MG1, PHOS ####[place] [phone] Magnesiumon 10-11-2019 Magnesium [Mass/Vol] 2.0 mg/dL Normal 1.7-2.6 [facility] Comment on above: Performed By: #### C BC, BMP, MG1, PHOS ####[place] [phone] NURSING PROGon 10-11-2019 NURSING PROG HNO ID: [id number] Author: Briana (Rn) SEYMOUR Hardy Service: ? Author Type: Registered Nurse Type: Nursing Progress Note Filed: 10/11/2019 2:37 PM Note Text: Nursing Progress Note Patient Name: Pedro Pablo Sierra Patient Location: [id number]/-CC-0 245- __ Daily Note: 0700. Bedside report received from security shift manager RN. Patient is resting comfortably in [...] note was completed by: Briana Hardy RN [facility] PROGRESSon 10-11-2019 PROGRESS HNO ID: [id number] Author: Noman Fish MD Service: Vascular Surgery [...] CRISPIN stenting on 10/23, UC, CAD previous MO, DM, HTN, HLD, COPD Overall Course: 63 [...] TIME: 7:24 AM PAGER/CONTACT #: See Below [phone] For questions Monday through Monday 6am to 6pm please page Red Team [phone] For questions during nights (6pm - 6am) and weekends, please contact the General Surgery Equipment Technician pager, [phone] [facility] PROGRESS HNO ID: [id number] Author: Rashawn Huntley Service: Critical Care Author [...] CURRENT MEDICATIONS: Medications reviewed. Please refer to [facility] for list of inpatient medications. Current Facility-Administered [...] INTRAVENOUS q 2 H PRN Elly (Res) [place] 25 mcg at 10/11/19 0648 - hyoscyamine [...] tab(s) (PLAVIX) 75 mg ORAL DAILY Roman (Customs Port Director) Heinly 75 mg at 10/10/19 0817 - polyethylene glycol 3350 17 g packet (MIRALAX, GLYCOLAX) 17 g ORAL DAILY PRN Elly (Res) [place] - docusate sodium 100 mg cap(s) (COLACE) 100 mg ORAL BID Elly (Res) [place] 100 mg at 10/10/192202 - budesonide 0.25 mg/2 mL 0.25 mg (PULMICORT) 0.25 mg INHALATION BID Elly (Res) [place] 0.25 mg at 10/10/192046 And - ipratropium-albuterol 3 mL nebulizer solution (DUONEB) 3 mL INHALATION QID Elly (Res) [place] 3 mL at 10/10/192046 - NaCl 0.9% [...] listed below. Plese refer to [facility] for a full listing of cultures obtained during this hospitalization. ? N/A DIAGNOSTIC TESTS: The following diagnostic tests/findings were reviewed: ? Most recent labs and imaging results. MOST RECENT CXR FINDINGS: Bibasilar atelectasis. OPERATIVE PROCEDURE(S): Date of surgery: 10/08/19 Procedure: Left common HANDS PARTER endarterectomy with bovine path Left profundoplasty Left iliac stenting X4 (I-Cast X2, Jessica X2) Multiple angiograms with angioplasty Surgeon: Dr. May Date of surgery: 10/10/19 Procedure: Left EIA to HANDS PARTER bypass with 7mm ringed PTFE end to end proximally to the previously placed bovine patch end to side distally. Completion angiogram Retrograde open RADHA angioplasty with 8 x 80 mustang balloon. Open thrombectomy L iliac artery by leg incision. Surgeon: Dr. May Assessment/Plan 69 year old male with CAD (EF 60% on 09/12/19), MO in 2005, HTN, HLD, COPD, PJ(on 2L O2 nocturnal), DM, GERD, diverticulosis, anxiety, depression, lupus anticoagulant disorder on Coumadin, chronic low back pain, aortoiliac and left ileofemoral PAD s/p multiple interventions including left femoral endarterectomy/aortoil iac stenting in 10/2013 who underwent a Redo left HANDS PARTER endarterectomy, left profundoplasty, left iliac stenting with Dr. May on 10/08/19. She is admitted to SICU post-operatively for neurovascular checks and close hemodynamic monitoring. Developed L HANDS PARTER occlusion POD2 and taken back to OR on 10/10/19 for left groin hematoma evacuation, left EIA to HANDS PARTER PTFE bypass, left liac thrombectomy. Transferred to [...] -Tubes: Clark -Prophylaxis: SCDs -Dispo: Transfer to [facility] Medication and Non-Pharmacologic VTE Prophylaxis/Anticoagul ants Anticoagulant AND Antiplatelet Medications (From admission, onward) Start Dose Route Frequency Ordered Stop 10/10/19 0900 clopidogrel 75 mg tab(s) (PLAVIX) 75 mg ORAL DAILY 10/09/19 1043 -- 10/08/19 1700 activity - mobilize patient ([place], [place]) 10/08/19 1645 pneumatic compression stockings ([place], [place]) VTE Prophylaxis: Contraindicated elevated risk of bleeding To be seen and discussed on rounds with SICU staff: Dr. Huntley ICU Checklist --------- --- VTE Prophylaxis: SIGNATURE: Misael Jeter MD PATIENT NAME: Pedro Pablo Sierra DATE: October 11, 2019 TIME: 6:40 AM PAGER/CONTACT #: [phone] [facility] STAFF PHYSICIAN NOTE OF PERSONAL INVOLVEMENT [...] HTN GERD ? Procedure/Surgeon 10/08/19 S/P L HANDS PARTER endarterectomy with bovine path, profundoplasty and iliac [...] level of care outside the ICU Rashawn Hunltey DO 11:08 AM October 11, 2019 Normal [facility] Phosphoruson 10-11-2019 Phosphate [Mass/Vol] 1.9 mg/dL Low 2.5-4.5 [facility] Comment on above: Performed By: #### C BC, BMP, MG1, PHOS ####[place] [id number] [place], [place] [phone] Protimeon 10-11-2019 PT Coag (PPP) [Time] 10.9 s Normal 9.7-13.0 [facility] Comment on above: Performed By: #### P T ####[id number] [place], [place] [phone] PT Coag (PPP) [Time] 1.0 s Normal 0.9-1.3 [facility] Comment on above: Result Comment: Teri min K Antagonist (VKA) Therapeutic Range: INR 2 to 3 (Target INR of 2.5) Note: For patients treated with VKA drugs, such as warfarin, the [place] [employer] 2012 Guideline recommends [...] Chest 2012, 141:7S-47S Gio KENNY et al. [facility] 2017, 70: 252-289 Performed By: #### P T ####[id number] [place], [place] [phone] THERAPY NTon 10-11-2019 THERAPY NT HNO ID: [id number] Author: Gini (Pt) Eugenia Melvin Service: Physical Therapy Author Type: Physical Therapist Type: Therapy (PT/OT/Speech/Resp) Filed: 10/11/2019 10:43 AM Note Text: Physical Therapy Treatment SERVICE DATE: 10/11/2019 SERVICE TIME: 0935 to 1020 ROOM: [place] [address] Recommended Discharge Disposition: Home PT Anticipated Discharge [...] Diagnosis: Reduced mobility-other Interventions Provided: Therapeutic Activity (04314);Therapeutic Exercise (50102);Gait Training (64185) Therapeutic Exercise (85940) Treatment Minutes: 15 1 unit Skilled Intervention(s): Instruction in therapeutic exercise supine, very gentle with Daisha GOOD. Edu on rationale of exercises. Therapeutic Activity (03326) Treatment Minutes: 20 1 unit Skilled Intervention(s): Instructed patient in supine to sit pushing with upper extremities to sit up Instructed patient in supine to and from sit pushing with upper extremities to sit up Instruction in sit to stand technique with proper hand placement and body positioning at edge of bed/chair Gait Training (08079) Treatment Minutes: 10 1 unit Skilled Intervention(s): Instruction in sequencing, gait pattern and Instruction in correction of gait deviations Total Timed Code Treatment Minutes: 45 Total Treatment Time (minutes): 45 SUBJECTIVE: Current Hospital Course: Chart reviewed and no significant medical updates relevant to therapy were noted Reason for Physical Therapy Consult : PVD s/p L LE redo HANDS PARTER endarterectomy, L profundoplasty, iliac stenting on 10/08/19 Relevant Past Medical History: S/p L femoral endarterectomy/aoroili ac stenting Patient Report: My Left leg is incredibly sore right now, moving is going to have to be slow. (And it is.) Home Environment Patient Lives With: Self/Alone 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 Entry To Home: Stairs;Other: See Comment(stair [...] DATE: October 11, 2019 TIME: 10:40 AM [facility] THERAPY NT HNO ID: [id number] Author: Caitlin Thomas Service: Occupational Therapy Author Type: Occupational Therapist Type: Therapy (PT/OT/Speech/Resp) Filed: 10/11/2019 6:48 AM Note Text: OCCUPATIONAL THERAPY MISSED VISIT SERVICE DATE: 10/11/2019 SERVICE TIME: 0647 to 0647 ROOM: [place] [address] Attempted Treatment. Patient not seen due to Incomplete Orders. Pt is currently on bedrest. Please update activity orders when medically appropriate for participation in Occupational Therapy treatment and out of bed mobility. Thank you. SIGNATURE: Caitlin Thomas OTR/L PATIENT NAME: Pedro Pablo Sierra DATE: October 11, 2019 TIME: 6:47 AM Normal [facility] ABG Complete Eval FOR SEFERINO Kauffman 10-10-2019 Base Excess 1 mmol/L Normal [facility] Comment on above: Result Comment: -3 t o 3 Performed By: #### A BGRTC ####[facility] [place], [place] [phone] Calcium [Mass/Vol] 1.29 mmol/L Normal 1.15-1.35 [facility] Comment on above: Performed By: #### A BGRTC ####[place] [phone] Carboxyhemoglobin,Art 1.0 % Normal <2.0 [facility] Comment on above: Performed By: #### A BGRTC ####[place] [phone] Chloride, Whole Bld FOR WEST USE ONLY 105 mmol/L Normal 98-107 [facility] Comment on above: Performed By: #### A BGRTC ####[place] [phone] CO2 [Moles/Vol] 27 mmol/L Normal 22.0-28.0 [facility] Comment on above: Performed By: #### A BGRTC ####[place] [phone] Glucose [Mass/Vol] 132 mg/dL High 65-100 [facility] Comment on above: Performed By: #### A BGRTC ####[place] [phone] HCO3 (Bld) [Moles/Vol] 26 mmol/L Normal 22-26 [facility] Comment on above: Performed By: #### A BGRTC ####[place] [phone] Hematocrit (Bld) [Volume fraction] 26.3 % Low 42.0-52.0 [facility] Comment on above: Performed By: #### A BGRTC ####[place] [phone] Hemoglobin (Bld) [Mass/Vol] 8.5 g/dL Low 14-18 [facility] Comment on above: Performed By: #### A BGRTC ####[place] [phone] Lactate [Moles/Vol] 1.5 mmol/L Normal 0.4-2.0 [facility] Comment on above: Performed By: #### A BGRTC ####[place] [phone] Methemoglobin 1.4 % Normal 0.4-1.5 [facility] Comment on above: Performed By: #### A BGRTC ####[place] [phone] O2 Administered 21.0 Normal [facility] Comment on above: Performed By: #### A BGRTC ####[place] [phone] Oxygen (Bld) [Partial pressure] 136 mm Hg High 80-100 [facility] Comment on above: Performed By: #### A BGRTC ####[place] [phone] Oxygen (Bld) [Partial pressure] 99 % High 90-98 [facility] Comment on above: Performed By: #### A BGRTC ####[place] [phone] Oxyhemoglobin, Art. 96 % Normal 94-100 [facility] Comment on above: Performed By: #### A BGRTC ####[place] [phone] pCO2 46 mm Hg Normal 35-48 [facility] Comment on above: Performed By: #### A BGRTC ####[place] [phone] pH (Bld) 7.37 [pH] Normal 7.35-7.45 [facility] Comment on above: Performed By: #### A BGRTC ####[phone] PO2FI FOR WEST USE ONLY 648 mmHG High 400-500 [facility] Comment on above: Performed By: #### A BGRTC ####[place] [phone] Potassium [Moles/Vol] 3.9 mmol/L Normal 3.5-5.0 [facility] Comment on above: Performed By: #### A BGRTC ####[place] [phone] Sodium [Moles/Vol] 137 mmol/L Normal 135-145 [facility] Comment on above: Performed By: #### A BGRTC ####[place] [phone] Base Excess 2 mmol/L Normal [facility] Comment on above: Result Comment: -3 t o 3 Performed By: #### A BGRTC ####[place] [phone] Calcium [Mass/Vol] 1.09 mmol/L Low 1.15-1.35 [facility] Comment on above: Performed By: #### A BGRTC ####[place] [phone] Carboxyhemoglobin,Art 1.3 % Normal <2.0 [facility] Comment on above: Performed By: #### A BGRTC ####[place] [phone] Chloride, Whole Bld FOR WEST USE ONLY 106 mmol/L Normal 98-107 [facility] Comment on above: Performed By: #### A BGRTC ####[place] [phone] CO2 [Moles/Vol] 28 mmol/L Normal 22.0-28.0 [facility] Comment on above: Performed By: #### A BGRTC ####[place] [phone] Glucose [Mass/Vol] 129 mg/dL High 65-100 [facility] Comment on above: Performed By: #### A BGRTC ####[place] [phone] HCO3 (Bld) [Moles/Vol] 27 mmol/L High 22-26 [facility] Comment on above: Performed By: #### A BGRTC ####[place] [phone] Hematocrit (Bld) [Volume fraction] 24.6 % Low 42.0-52.0 [facility] Comment on above: Performed By: #### A BGRTC ####[place] [phone] Hemoglobin (Bld) [Mass/Vol] 7.9 g/dL Low 14-18 [facility] Comment on above: Performed By: #### A BGRTC ####[place] [phone] Lactate [Moles/Vol] 1.1 mmol/L Normal 0.4-2.0 [facility] Comment on above: Performed By: #### A BGRTC ####[place] [phone] Methemoglobin 1.2 % Normal 0.4-1.5 [facility] Comment on above: Performed By: #### A BGRTC ####[place] [phone] O2 Administered 21.0 Normal [facility] Comment on above: Performed By: #### A BGRTC ####[place] [phone] Oxygen (Bld) [Partial pressure] 164 mm Hg High 80-100 [facility] Comment on above: Performed By: #### A BGRTC ####[place] [phone] Oxygen (Bld) [Partial pressure] 99 % High 90-98 [facility] Comment on above: Performed By: #### A BGRTC ####[place] [phone] Oxyhemoglobin, Art. 97 % Normal 94-100 [facility] Comment on above: Performed By: #### A BGRTC ####[place] [phone] pCO2 44 mm Hg Normal 35-48 [facility] Comment on above: Performed By: #### A BGRTC ####[facility] [place] [phone] pH (Bld) 7.40 [pH] Normal 7.35-7.45 [facility] Comment on above: Performed By: #### A BGRTC ####[facility] [place] [phone] PO2FI FOR WEST USE ONLY 781 mmHG High 400-500 [facility] Comment on above: Performed By: #### A BGRTC ####[facility] [place] [phone] Potassium [Moles/Vol] 3.6 mmol/L Normal 3.5-5.0 [facility] Comment on above: Performed By: #### A BGRTC ####[place] [id number] [place] [phone] Sodium [Moles/Vol] 137 mmol/L Normal 135-145 [facility] Comment on above: Performed By: #### A BGRTC ####[facility] [place] [phone] ALLIED HEALTHon 10-10-2019 ALLIED HEALTH HNO ID: [id number] Author: William Renee (Rt) Service: Radiology Author Type: Electrical Equipment Technician Type: Allied Health Filed: 10/10/2019 6:31 [...] RT Víctor October 10, 2019 6:31 AM [facility] ANES PRE-OPon 10-10-2019 ANES PRE-OP HNO ID: [id number] Author: Joey Sequeira Service: ? Author Type: [...] (+) PVD (peripheral vascular disease) ([facility]) (+) s/p left femoral endarterectomy/aortoil iac stenting 10/08/2019 (now with L HANDS PARTER occlusion) PULMONARY (+) COPD (chronic obstructive pulmonary disease) ([facility]) (+) PJ (obstructive sleep apnea) ANESTHESIA (+) PJ (obstructive sleep apnea) NEURO-PSYCH (+) Headache GI (+) GERD (gastroesophageal reflux disease) Other (+) Anemia due to acute blood loss (Hgb 7.4 this AM; will order 2 units PRBCs) (+) Lupus anticoagulant disorder ([facility]) I - PHYSICAL EVALUATION AIRWAY [...] (iso-osmotic) 100 mL (ANCEF) 2 g INTRAVENOUS Equipment Technician to OR - NaCl 0.9% iv [...] movements. - COMPOUNDED PRESCRIPTION Aerosol supplies Dx:J44.1 NPI#[id number] - ipratropium-albuterol (DUONEB) 0.5 mg-3 mg(2.5 mg [...] October 10, 2019 TIME: 8:21 AM CSN: [id number] Normal [facility] APTTon 10-10-2019 aPTT Coag (Bld) [Time] 25.4 s Normal 23.0-32.4 [facility] Comment on above: Result Comment: Unfr [...] laboratory APTT reagent in use throughout the [facility]. Performed By: #### C BCDIF, PTT, FIBCT, PT ####[facility] [place], [place] [phone] aPTT Coag (Bld) [Time] 126.3 s High 23.0-32.4 [facility] Comment on above: Result Comment: Unfr [...] laboratory APTT reagent in use throughout the [facility]. Called to and read back by: Landry Quintana RN [facility]10[facility]19 Royce Mccormick Performed By: #### C BCDIF, BMP, MG1, PHOS, PTT, PT ####[facility] [place], [place] [phone] aPTT Coag (Bld) [Time] 44.1 s High 23.0-32.4 [facility] Comment on above: Result Comment: Unfr [...] laboratory APTT reagent in use throughout the [facility]. Performed By: #### P TT ####[place] [phone] Basic Metabolic Panlon 10-09 Anion gap [Moles/Vol] 11 mmol/L Normal 9-18 [facility] Comment on above: Performed By: #### C BCDIF, BMP, MG1, PHOS, PTT, PT ####[place] [phone] Calcium [Mass/Vol] 8.0 mg/dL Low 8.5-10.5 [facility] Comment on above: Performed By: #### C BCDIF, BMP, MG1, PHOS, PTT, PT ####[place] [phone] Chloride [Moles/Vol] 103 mmol/L Normal 98-110 [facility] Comment on above: Performed By: #### C BCDIF, BMP, MG1, PHOS, PTT, PT ####[place] [phone] CO2 [Moles/Vol] 24 mmol/L Normal 23-32 [facility] Comment on above: Performed By: #### C BCDIF, BMP, MG1, PHOS, PTT, PT ####[place] [phone] Creatinine [Mass/Vol] 0.68 mg/dL Low 0.70-1.40 [facility] Comment on above: Performed By: #### C BCDIF, BMP, MG1, PHOS, PTT, PT ####[place] [phone] eGFR- Amer. >60 Normal >60 [facility] Comment on above: Performed By: #### C BCDIF, BMP, MG1, PHOS, PTT, PT ####[place] [phone] GFR/1.73 sq M predicted among non-blacks MDRD (S/P/Bld) [Vol rate/Area] mL/min/{1.73_m2} Normal >60 [facility] Comment on above: Performed By: #### C BCDIF, BMP, MG1, PHOS, PTT, PT ####[place] [phone] Glucose [Mass/Vol] 127 mg/dL High 65-100 [facility] Comment on above: Performed By: #### C BCDIF, BMP, MG1, PHOS, PTT, PT ####[place] [phone] Potassium [Moles/Vol] 4.3 mmol/L Normal 3.5-5.0 [facility] Comment on above: Performed By: #### C BCDIF, BMP, MG1, PHOS, PTT, PT ####[place] [phone] Sodium [Moles/Vol] 138 mmol/L Normal 135-146 [facility] Comment on above: Performed By: #### C BCDIF, BMP, MG1, PHOS, PTT, PT ####[place] [phone] Urea nitrogen [Mass/Vol] 9 mg/dL Low 10-25 [facility] Comment on above: Performed By: #### C BCDIF, BMP, MG1, PHOS, PTT, PT ####[place] [phone] Anion gap [Moles/Vol] 8 mmol/L Low 9-18 [facility] Comment on above: Performed By: #### C BC, BMP, MG1, PHOS ####[place] [phone] Calcium [Mass/Vol] 7.9 mg/dL Low 8.5-10.5 [facility] Comment on above: Performed By: #### C BC, BMP, MG1, PHOS ####[place] [phone] Chloride [Moles/Vol] 101 mmol/L Normal 98-110 [facility] Comment on above: Performed By: #### C BC, BMP, MG1, PHOS ####[place] [phone] CO2 [Moles/Vol] 27 mmol/L Normal 23-32 [facility] Comment on above: Performed By: #### C BC, BMP, MG1, PHOS ####[place] [phone] Creatinine [Mass/Vol] 0.69 mg/dL Low 0.70-1.40 [facility] Comment on above: Performed By: #### C BC, BMP, MG1, PHOS ####[place] [phone] eGFR- Amer. >60 Normal >60 [facility] Comment on above: Performed By: #### C BC, BMP, MG1, PHOS ####[place] [phone] GFR/1.73 sq M predicted among non-blacks MDRD (S/P/Bld) [Vol rate/Area] mL/min/{1.73_m2} Normal >60 [facility] Comment on above: Performed By: #### C BC, BMP, MG1, PHOS ####[place] [phone] Glucose [Mass/Vol] 107 mg/dL High 65-100 [facility] Comment on above: Performed By: #### C BC, BMP, MG1, PHOS ####[place] [phone] Potassium [Moles/Vol] 3.8 mmol/L Normal 3.5-5.0 [facility] Comment on above: Performed By: #### C BC, BMP, MG1, PHOS ####[place] [phone] Sodium [Moles/Vol] 136 mmol/L Normal 135-146 [facility] Comment on above: Performed By: #### C BC, BMP, MG1, PHOS ####[phone] Urea nitrogen [Mass/Vol] 11 mg/dL Normal 10-25 [facility] Comment on above: Performed By: #### C BC, BMP, MG1, PHOS ####[phone] CASE MANAGEMon 10-10-2019 CASE MANAGEM HNO ID: [id number] Author: Bri (Rn) SEYMOUR Swann Service: Case [...] 10, 2019 TIME: 4:23 PM PAGER/CONTACT #: [phone] Normal [facility] CBCon 10-10-2019 Erythrocyte distribution width (RBC) [Ratio] 16.0 % High 11.5-15.0 [facility] Comment on above: Performed By: #### C BC, BMP, MG1, PHOS ####[place] [phone] Hematocrit (Bld) [Volume fraction] 23.2 % Low 39.0-51.0 [facility] Comment on above: Performed By: #### C BC, BMP, MG1, PHOS ####[place] [id number] [place] [phone] Hemoglobin (Bld) [Mass/Vol] 7.5 g/dL Low 13.0-17.0 [facility] Comment on above: Performed By: #### C BC, BMP, MG1, PHOS ####[place] [phone] MCH (RBC) [Entitic mass] 30.1 pG Normal 26.0-34.0 [facility] Comment on above: Performed By: #### C BC, BMP, MG1, PHOS ####[place] [phone] MCHC (RBC) [Mass/Vol] 32.3 g/dL Normal 30.5-36.0 [facility] Comment on above: Performed By: #### C BC, BMP, MG1, PHOS ####[place] [phone] MCV (RBC) [Entitic vol] 93.2 fL Normal 80.0-100.0 [facility] Comment on above: Performed By: #### C BC, BMP, MG1, PHOS ####[place] [phone] Platelet mean volume (Bld) [Entitic vol] 9.8 fL Normal 9.0-12.7 [facility] Comment on above: Performed By: #### C BC, BMP, MG1, PHOS ####[place] [phone] Platelets (Bld) [#/Vol] 180 10*3/uL Normal 150-400 [facility] Comment on above: Performed By: #### C BC, BMP, MG1, PHOS ####[place] [phone] RBC (Bld) [#/Vol] 2.49 10*6/uL Low 4.20-6.00 [facility] Comment on above: Performed By: #### C BC, BMP, MG1, PHOS ####[place] [phone] WBC (Bld) [#/Vol] 6.64 10*3/uL Normal 3.70-11.00 [facility] Comment on above: Performed By: #### C BC, BMP, MG1, PHOS ####[place] [phone] CBC and Differentialon 10-09 Abs Baso 0.03 k/uL Normal <0.11 [facility] Comment on above: Performed By: #### C BCDIF, PTT, FIBCT, PT ####[address] Abs Bee 0.69 k/uL Normal <0.87 [facility] Comment on above: Performed By: #### C BCDIF, PTT, FIBCT, PT ####[place] [phone] Abs Neut 5.56 k/uL Normal 1.45-7.50 [facility] Comment on above: Performed By: #### C BCDIF, PTT, FIBCT, PT ####[address]10 Basophils/100 WBC (Bld) 0.4 % Normal [facility] Comment on above: Performed By: #### C BCDIF, PTT, FIBCT, PT ####[address]10 Eosinophils (Bld) [#/Vol] 10*3/uL Normal <0.46 [facility] Comment on above: Performed By: #### C BCDIF, PTT, FIBCT, PT ####[address]10 Eosinophils/100 WBC (Bld) 0.3 % Normal [facility] Comment on above: Performed By: #### C BCDIF, PTT, FIBCT, PT ####[place] [phone] Erythrocyte distribution width (RBC) [Ratio] 16.9 % High 11.5-15.0 [facility] Comment on above: Performed By: #### C BCDIF, PTT, FIBCT, PT ####[phone] Hematocrit (Bld) [Volume fraction] 21.7 % Low 39.0-51.0 [facility] Comment on above: Performed By: #### C BCDIF, PTT, FIBCT, PT ####[place] [phone] Hemoglobin (Bld) [Mass/Vol] 7.1 g/dL Low 13.0-17.0 [facility] Comment on above: Performed By: #### C BCDIF, PTT, FIBCT, PT ####[place] [phone] Lymphocytes (Bld) [#/Vol] 1.03 10*3/uL Normal 1.00-4.00 [facility] Comment on above: Performed By: #### C BCDIF, PTT, FIBCT, PT ####[place] [phone] Lymphocytes/100 WBC (Bld) 14.1 % Normal [facility] Comment on above: Performed By: #### C BCDIF, PTT, FIBCT, PT ####[place] [phone] MCH (RBC) [Entitic mass] 29.5 pG Normal 26.0-34.0 [facility] Comment on above: Performed By: #### C BCDIF, PTT, FIBCT, PT ####[place] [phone] MCHC (RBC) [Mass/Vol] 32.7 g/dL Normal 30.5-36.0 [facility] Comment on above: Performed By: #### C BCDIF, PTT, FIBCT, PT ####[place] [phone] MCV (RBC) [Entitic vol] 90.0 fL Normal 80.0-100.0 [facility] Comment on above: Performed By: #### C BCDIF, PTT, FIBCT, PT ####[address] [phone] Monocytes/100 WBC (Bld) 9.4 % Normal [facility] Comment on above: Performed By: #### C BCDIF, PTT, FIBCT, PT ####[place] [phone] Neutrophils/100 WBC (Bld) 75.8 % Normal [facility] Comment on above: Performed By: #### C BCDIF, PTT, FIBCT, PT ####[place] [phone] Platelet mean volume (Bld) [Entitic vol] 10.0 fL Normal 9.0-12.7 [facility] Comment on above: Performed By: #### C BCDIF, PTT, FIBCT, PT ####[place] [phone] Platelets (Bld) [#/Vol] 167 10*3/uL Normal 150-400 [facility] Comment on above: Performed By: #### C BCDIF, PTT, FIBCT, PT ####[place] [phone] RBC (Bld) [#/Vol] 2.41 10*6/uL Low 4.20-6.00 [facility] Comment on above: Performed By: #### C BCDIF, PTT, FIBCT, PT ####[place] [phone] WBC (Bld) [#/Vol] 7.33 10*3/uL Normal 3.70-11.00 [facility] Comment on above: Performed By: #### C BCDIF, PTT, FIBCT, PT ####[place] [phone] Abs Baso 0.04 k/uL Normal <0.11 [facility] Comment on above: Performed By: #### C BCDIF, BMP, MG1, PHOS, PTT, PT ####[place] [phone] Abs Bee 0.56 k/uL Normal <0.87 [facility] Comment on above: Performed By: #### C BCDIF, BMP, MG1, PHOS, PTT, PT ####[place] [address] Abs Neut 5.40 k/uL Normal 1.45-7.50 [facility] Comment on above: Performed By: #### C BCDIF, BMP, MG1, PHOS, PTT, PT ####[place] [address] Basophils/100 WBC (Bld) 0.6 % Normal [facility] Comment on above: Performed By: #### C BCDIF, BMP, MG1, PHOS, PTT, PT ####[place] [address] DTYPE Auto Diff Normal [facility] Comment on above: Performed By: #### C BCDIF, PTT, FIBCT, PT ####[place] [address] Performed By: #### C BCDIF, BMP, MG1, PHOS, PTT, PT ####[place] [address] Eosinophils (Bld) [#/Vol] 0.06 10*3/uL Normal <0.46 [facility] Comment on above: Performed By: #### C BCDIF, BMP, MG1, PHOS, PTT, PT ####[place] [address] Eosinophils/100 WBC (Bld) 0.8 % Normal [facility] Comment on above: Performed By: #### C BCDIF, BMP, MG1, PHOS, PTT, PT ####[place] [address] Erythrocyte distribution width (RBC) [Ratio] 16.6 % High 11.5-15.0 [facility] Comment on above: Performed By: #### C BCDIF, BMP, MG1, PHOS, PTT, PT ####[place] [phone] Hematocrit (Bld) [Volume fraction] 24.9 % Low 39.0-51.0 [facility] Comment on above: Performed By: #### C BCDIF, BMP, MG1, PHOS, PTT, PT ####[place] [phone] Hemoglobin (Bld) [Mass/Vol] 8.3 g/dL Low 13.0-17.0 [facility] Comment on above: Performed By: #### C BCDIF, BMP, MG1, PHOS, PTT, PT ####[place] [phone] Lymphocytes (Bld) [#/Vol] 1.07 10*3/uL Normal 1.00-4.00 [facility] Comment on above: Performed By: #### C BCDIF, BMP, MG1, PHOS, PTT, PT ####[place] [phone] Lymphocytes/100 WBC (Bld) 15.0 % Normal [facility] Comment on above: Performed By: #### C BCDIF, BMP, MG1, PHOS, PTT, PT ####[place] [phone] MCH (RBC) [Entitic mass] 30.3 pG Normal 26.0-34.0 [facility] [facility] Comment on above: Performed By: #### C BCDIF, BMP, MG1, PHOS, PTT, PT ####[place] [phone] MCHC (RBC) [Mass/Vol] 33.3 g/dL Normal 30.5-36.0 [facility] Comment on above: Performed By: #### C BCDIF, BMP, MG1, PHOS, PTT, PT ####[place] [phone] MCV (RBC) [Entitic vol] 90.9 fL Normal 80.0-100.0 [facility] Comment on above: Performed By: #### C BCDIF, BMP, MG1, PHOS, PTT, PT ####[place] [phone] Monocytes/100 WBC (Bld) 7.9 % Normal [facility] Comment on above: Performed By: #### C BCDIF, BMP, MG1, PHOS, PTT, PT ####[place] [phone] Neutrophils/100 WBC (Bld) 75.7 % Normal [facility] Comment on above: Performed By: #### C BCDIF, BMP, MG1, PHOS, PTT, PT ####[place] [phone] Platelet mean volume (Bld) [Entitic vol] 9.8 fL Normal 9.0-12.7 [facility] Comment on above: Performed By: #### C BCDIF, BMP, MG1, PHOS, PTT, PT ####[place] [phone] Platelets (Bld) [#/Vol] 173 10*3/uL Normal 150-400 [facility] Comment on above: Performed By: #### C BCDIF, BMP, MG1, PHOS, PTT, PT ####[place] [phone] RBC (Bld) [#/Vol] 2.74 10*6/uL Low 4.20-6.00 [facility] Comment on above: Performed By: #### C BCDIF, BMP, MG1, PHOS, PTT, PT ####[place] [phone] WBC (Bld) [#/Vol] 7.13 10*3/uL Normal 3.70-11.00 [facility] Comment on above: Performed By: #### C BCDIF, BMP, MG1, PHOS, PTT, PT ####[place] [phone] Fibrinogenon 10-10-2019 Fibrinogen 410 mg/dL High 200-400 [facility] Comment on above: Performed By: #### C BCDIF, PTT, FIBCT, PT ####[place] [phone] HISTORY PHYSICALon 0 HISTORY PHYSICAL HNO ID: [id number] Author: Ryan May MD Service: Vascular Surgery Author Type: Physician Type: HANDP Filed: 10/10/2019 9:03 AM Note Text: As a result of the 09/03/19 order by [facility] Director Libby Harris M.D. to cancel non-essential surgeries that would use PPE, unless special criteria are met, I have reviewed the clinical record for this patient and have determined that the scheduled procedure meets the criteria to go forward because there is a threat of permanent dysfunction of an extremity or organ system. Possible thrombosis of the left HANDS PARTER graft. Possible hematoma. Plan to reexplore, evacuate hematoma, possible ileo-femoral bypass vs fem-fem bypass. Jermaine May MD Normal [facility] Hematocriton 10-10-2019 Hematocrit (Bld) [Volume fraction] 23.1 % Low 39.0-51.0 [facility] Comment on above: Performed By: #### H CT, HGB ####[place] [phone] Hemoglobinon 10-10-2019 Hemoglobin (Bld) [Mass/Vol] 7.4 g/dL Low 13.0-17.0 [facility] Comment on above: Performed By: #### H CT, HGB ####[place] [phone] Magnesiumon 10-10-2019 Magnesium [Mass/Vol] 1.8 mg/dL Normal 1.7-2.6 [facility] Comment on above: Performed By: #### C BCDIF, BMP, MG1, PHOS, PTT, PT ####[address], [place] [phone] Magnesium [Mass/Vol] 2.0 mg/dL Normal 1.7-2.6 [facility] Comment on above: Performed By: #### C BC, BMP, MG1, PHOS ####[facility] [place], [place] [phone] NURSING PROGon 10-10-2019 NURSING PROG HNO ID: [id number] Author: Yeimi NessRn) SEYMOUR Wong Service: ? Author Type: Registered Nurse Type: Nursing Progress Note Filed: 10/11/2019 7:38 AM Note Text: Nursing Progress Note Patient Name: Pedro Pablo Sierra Patient Location: [id number]/[facility] __ Daily Note: 1900 Received bedside report from Josse AHUJA. 1999 Assessment complete. Please see all flowsheets. 2100 2 units of blood ordered per Dr. Johnson. 2199 Started 1 unit of PRBC per order. 0 Dr. Johnson and discharge specialist Daphney rounding on pt. SBAR given. New orders received. 2214 Spoke nmzs-ce-ctxe with Dr. Johnson. Okay to go by cuff pressure. 5 Started 1 unit of PRBC per order. 0000 Reassessment complete. Please see all flowsheets. 0130 Dr. Johnson at bedside. SBAR given. Per Dr. Johnson, draw AM labs at 0330. 0400 Reassessment complete. Please see all flowsheets. 0715 Bedside report given to Briana AHUJA. Normal [facility] NURSING PROG HNO ID: [id number] Author: Fran NessRn) SEYMOUR Quintana Service: Critical Care Author Type: Registered Nurse Type: Nursing Progress Note Filed: 10/10/2019 7:55 PM Note Text: Nursing Progress Note Patient Name: Pedro Pablo Sierra Patient Location: [id number]/[facility] -01 __ Daily Note: 0800: Full assessment complete. 0810: Talking with Misael, who would like amlodipine held this AM, okay to give metoprolol, and okayed by vascular surgery resident to give plavix. 0830: OR team at bedside. SBAR report. Plan to give cefazolin and PRBCs in OR. [phone]: On the phone with Joseph (pt's ex-) who is concerned because she was not updated on when pt went to surgery and is not getting updates like before via text. Joseph is also stating that she signed papers at [facility] recently transfering Health Care POA into her name. Last AD is from 2013 with Michelle (daughter) as POA. 1042: Page to case management [facility] 245 in OR Mr. Sierra [phone]: Ania (pt's ex-) states that she submitted papers recently while at [facility] that she is healthcare POA. Last AD I see is 2013 that has Michelle Richmond (pt's daughter) as POA. -Josse AHUJA [id number] 1600: pT disoriented to self and time emerging from anesthesia. 1620: Pt calling production material handler light stating he is bleeding. Upon assessment, blood seeping gown and chucks pad under pt. Pressure applied to L groin sight. Page to Dr. Jeter (global supply chain vice president). 1621: Dr. Jeter at bedside, assuming full [...] note was completed by: Fran Quintana RN [facility] NURSING PROG HNO ID: [id number] Author: Chrystal NessRn) SEYMOUR Jacob Service: Critical Care Author Type: Registered Nurse Type: Nursing Progress Note Filed: 10/10/2019 6:32 AM Note Text: Nursing Progress Note Patient Name: Pedro Pablo Sierra Patient Location: [id number]/-[facility]-0 245- __ Daily Note: 1900: Bedside handoff received from SEYMOUR Patel. Patient resting in bed, Heparin gtt verified. Pulses dual checked 1999: Full assessment completed. See doc flowsheets. 0000: Reassessment completed. Pulses still present via dopplar. 0400: Reassessment completed. See doc flowsheets. 0545: Patient pulled out IV. Reduced access. Dr. Moody aware. IV fluids stopped. This note was completed by: Chrystal Jacob RN [facility] OPERATIVE NOon 10-10-2019 OPERATIVE NO HNO ID: [id number] Author: Ryan May MD Service: Vascular Surgery Author Type: Physician Type: Operative Report Filed: 10/10/2019 1:51 PM Note Text: OPERATIVE/PROCEDURE REPORT LOG ID: [id number] Surgery/Procedure Date: 10/10/2019 Incision/Procedure Start Time:9:52 AM Incision Close/Procedure End Time: 13:49 Surgeon(s)/Procedurali st(s) and Muck Miner(s): Surgeon(s) and Role: * Ryan May MD - Primary * Elly (Azalea) Stephanie - Resident - Assisting No Additional Staff Anesthesia: General Procedure(s): Left EIA to HANDS PARTER bypass with 7mm ringed PTFE end to [...] to side to the patch. The proximal HANDS PARTER was clamped with four orange clips. Flow [...] DATE: 10/10/2019 TIME: 1:40 PM PAGER/CONTACT #: [facility] PROGRESSon 10-10-2019 PROGRESS HNO ID: [id number] Author: Elly Brown Service: Vascular Surgery Author [...] (iso-osmotic) 100 mL (ANCEF) 2 g INTRAVENOUS Equipment Technician to OR - NaCl 0.9% iv [...] 1604 -- 10/08/19 1645 pneumatic compression stockings (ms,oh) VTE Prophylaxis: on hep gtt ALLERGIES No [...] hematoma evacuation, possible thrombectomy, possible fem/fem. 2U production material handler to OR Ok to cont. AC Ancef production material handler to OR HOSPITALIZATION(S) Indication for admission/procedure: BLE pain Important/Relevant PMH/PSH: s/p left femoral endarterectomy with patch, US guided access RCFA, L profundaplasty, RUFUS recanalization AND stenting, CRISPIN stenting on 10/23, UC, CAD previous MO, DM, HTN, HLD, COPD Overall Course: 63 [...] 10, 2019 TIME: 7:50 AM PAGER/CONTACT #: [phone] [facility] PROGRESS HNO ID: [id number] Author: Rashawn Huntley Service: Critical Care Author [...] Medications reviewed. Please refer to [facility] for list of inpatient medications. Current Facility-Administered [...] - nicotine -- REMOVE patch OTHER DAILY Adnrews (Pa) Akshat And - nicotine - verify [...] (iso-osmotic) 100 mL (ANCEF) 2 g INTRAVENOUS Equipment Technician to OR Juliana Oden (Pa) - NaCl [...] hospitalization are listed below. Plese refer to [facility] for a full listing of cultures obtained during this hospitalization. ? N/A DIAGNOSTIC TESTS: The following diagnostic tests/findings were reviewed: ? Most recent labs and imaging results. MOST RECENT CXR FINDINGS: Increased vascular markings, likely fluid overload. OPERATIVE PROCEDURE(S): Date of surgery: 10/08/19 Procedure: Left common HANDS PARTER endarterectomy with bovine path Left profundoplasty Left iliac stenting X4 (I-Cast X2, Jessica X2) Multiple angiograms with angioplasty Surgeon: Dr. May Assessment/Plan 69 year old male with CAD (EF 60% on 09/12/19), MO in 2005, HTN, HLD, COPD, PJ(on 2L O2 nocturnal), DM, GERD, diverticulosis, anxiety, depression, lupus anticoagulant disorder on Coumadin, chronic low back pain, aortoiliac and left ileofemoral PAD s/p multiple interventions including left femoral endarterectomy/aortoil iac stenting in 10/2013 who underwent a Redo left HANDS PARTER endarterectomy, left profundoplasty, left iliac stenting with Dr. May on 10/08/19. She is admitted to SICU post-operatively for neurovascular checks and close hemodynamic monitoring. Developed L HANDS PARTER occlusion POD2 and going back to OR [...] -- 10/08/19 1700 activity - mobilize patient (ms,oh) 10/08/19 1645 pneumatic compression stockings (ms,oh) VTE Prophylaxis: VTE prophylaxis appropriate To be seen and discussed on rounds with SICU staff: Dr. Huntley ICU Checklist --------- --- VTE Prophylaxis: SIGNATURE: Misael Jeter MD PATIENT NAME: Pedro Pablo Sierra DATE: October 10, 2019 TIME: 6:40 AM PAGER/CONTACT #: [phone] [facility] STAFF PHYSICIAN NOTE OF PERSONAL INVOLVEMENT [...] HTN GERD ? Procedure/Surgeon 10/08/19 S/P L HANDS PARTER endarterectomy with bovine path, profundoplasty and iliac [...] Huntley DO 7:56 AM October 10, 2019 [facility] PTT,Anticoag Therapyon 10-09 aPTT Coag (Bld) [Time] 109.7 s High 23.0-32.4 [facility] Comment on above: Result Comment: Unfr [...] laboratory APTT reagent in use throughout the [facility]. Called to and read back by: Landry Quintana RN [facility] 10/10/19 Noemí HOLLIS Performed By: #### P TTAC ####[place] [phone] Phosphoruson 10-10-2019 Phosphate [Mass/Vol] 3.0 mg/dL Normal 2.5-4.5 [facility] Comment on above: Performed By: #### C BCDIF, BMP, MG1, PHOS, PTT, PT ####[place] [phone] Phosphate [Mass/Vol] 2.1 mg/dL Low 2.5-4.5 [facility] Comment on above: Performed By: #### C BC, BMP, MG1, PHOS ####[address] [phone] Protimeon 10-10-2019 PT Coag (PPP) [Time] 10.5 s Normal 9.7-13.0 [facility] Comment on above: Performed By: #### C BCDIF, PTT, FIBCT, PT ####[place] [phone] PT Coag (PPP) [Time] 1.0 s Normal 0.9-1.3 [facility] Comment on above: Result Comment: Teri min K Antagonist (VKA) Therapeutic Range: INR 2 to 3 (Target INR of 2.5) Note: For patients treated with VKA drugs, such as warfarin, the [place] [employer] 2012 Guideline recommends [...] Chest 2012, 141:7S-47S Gio RA, et al. [facility] 2017, 70: 252-289 Performed By: #### C BCDIF, PTT, FIBCT, PT ####[place] [phone] Performed By: #### C BCDIF, BMP, MG1, PHOS, PTT, PT ####[place] [phone] PT Coag (PPP) [Time] 10.9 s Normal 9.7-13.0 [facility] Comment on above: Performed By: #### C BCDIF, BMP, MG1, PHOS, PTT, PT ####[place] [phone] SURGICAL PATHOLOGYon 020 SURGICAL PATHOLOGY Specimen originated from [facility] Specimen #: [id number] Submitting Physician: RYAN MAY FINAL DIAGNOSIS Left [...] x 1.0 cm. No vessel is seen. Benchroom Shop Optician sections are submitted in formalin in one cassette. KVB/ka 10/14/2019 Gross examination performed at [facility], [address] [place] [address] Date of Report: 10/15/2019 Date of Procedure: 10/10/2019 Date of Receipt: 10/11/2019 Submitted by: RYAN MAY Location: [facility] Diagnostic interpretation performed at [place] [address]. IA Number: [id number] [facility] THERAPY NTon 10-10-2019 THERAPY NT HNO ID: [id number] Author: Shakir NessPtPauline Coello Service: Physical Therapy Author Type: Physical Therapist Type: Therapy (PT/OT/Speech/Resp) Filed: 10/10/2019 1:18 PM Note Text: .PHYSICAL THERAPY MISSED VISIT SERVICE DATE: 10/10/2019 SERVICE TIME: 1317 to 1317 ROOM: [facility] ( OPERATING ROOM) Attempted Treatment. Patient not seen due to Surgery. SIGNATURE: Shakir Coello PT PATIENT NAME: Pedro Pablo Sierra DATE: October 10, 2019 TIME: 1:18 PM [facility] THERAPY NT HNO ID: [id number] Author: Caitlin Thomas Service: Occupational Therapy Author Type: Occupational Therapist Type: Therapy (PT/OT/Speech/Resp) Filed: 10/10/2019 7:37 AM Note Text: OCCUPATIONAL THERAPY MISSED VISIT SERVICE DATE: 10/10/2019 SERVICE TIME: 0736 to 0736 ROOM: [place] [address] Attempted Treatment. Patient not seen due to Surgery. Pt going back to OR. OT tx on hold today. Will continue to monitor. SIGNATURE: Caitlin Thomas OTR/L PATIENT NAME: Pedro Pablo Sierra DATE: October 10, 2019 TIME: 7:36 AM [facility] XR CHEST 1V FRONTAL PORTon 0 [...] airspace opacities, which may relate to atelectasis. Graphic Art Designer: PSCB Transcribe Date/Time: Oct 10 2019 6:59A Dictated by : DULCE BARRON MD This examination was interpreted and the report reviewed and electronically signed by: DULCE BARRON MD on Oct 10 2019 7:00AM EST [id number] Normal [facility] ALLIED HEALTHon 10-09-2019 ALLIED HEALTH HNO ID: [id number] Author: Markell NessSaw MakerPauline Alonzo Service: Spiritual Care Author Type: Saw Maker Type: Allied Health Filed: 10/09/2019 5:11 [...] patient's RN who could page the on-call fitness and wellness instructor. ? To contact the [facility] Care Department: Please call [phone]?or Page the On-Call Saw Maker at pager [phone].??? Thank you for the opportunity to be of service. SIGNATURE: Chaplain Terry PATIENT NAME: Pedro Pablo Sierra DATE: October 09, 2019 TIME: 5:09 PM PAGER/CONTACT #: [phone] Normal [facility] APTTon 10-09-2019 aPTT Coag (Bld) [Time] 20.8 s Low 23.0-32.4 [facility] Comment on above: Result Comment: Unfr [...] laboratory APTT reagent in use throughout the [facility]. Performed By: #### C BC, BMP, MG1, PHOS, PTT, PT ####[place] [id number] [place], [place] [phone] Basic Metabolic Panlon 10-08 Anion gap [Moles/Vol] 9 mmol/L Normal 9-18 [facility] Comment on above: Performed By: #### C BC, BMP, MG1, PHOS, PTT, PT ####[place] [address] [place], [place] [phone] Calcium [Mass/Vol] 8.1 mg/dL Low 8.5-10.5 [facility] Comment on above: Performed By: #### C BC, BMP, MG1, PHOS, PTT, PT ####[place] [address] [place], [place] [phone] Chloride [Moles/Vol] 101 mmol/L Normal 98-110 [facility] Comment on above: Performed By: #### C BC, BMP, MG1, PHOS, PTT, PT ####[place] [phone] CO2 [Moles/Vol] 26 mmol/L Normal 23-32 [facility] Comment on above: Performed By: #### C BC, BMP, MG1, PHOS, PTT, PT ####[place] [phone] Creatinine [Mass/Vol] 0.81 mg/dL Normal 0.70-1.40 [facility] Comment on above: Performed By: #### C BC, BMP, MG1, PHOS, PTT, PT ####[place] [phone] eGFR- Amer. >60 Normal >60 [facility] Comment on above: Performed By: #### C BC, BMP, MG1, PHOS, PTT, PT ####[place] [phone] GFR/1.73 sq M predicted among non-blacks MDRD (S/P/Bld) [Vol rate/Area] mL/min/{1.73_m2} Normal >60 [facility] Comment on above: Performed By: #### C BC, BMP, MG1, PHOS, PTT, PT ####[place] [phone] Glucose [Mass/Vol] 129 mg/dL High 65-100 [facility] Comment on above: Performed By: #### C BC, BMP, MG1, PHOS, PTT, PT ####[place] [phone] Potassium [Moles/Vol] 4.5 mmol/L Normal 3.5-5.0 [facility] Comment on above: Performed By: #### C BC, BMP, MG1, PHOS, PTT, PT ####[place] [phone] Sodium [Moles/Vol] 136 mmol/L Normal 135-146 [facility] Comment on above: Performed By: #### C BC, BMP, MG1, PHOS, PTT, PT ####[facility] [place], [place] [phone] Urea nitrogen [Mass/Vol] 15 mg/dL Normal 10-25 [facility] Comment on above: Performed By: #### C BC, BMP, MG1, PHOS, PTT, PT ####[place] [address] [place], [place] [phone] CASE MANAGEMon 10-09-2019 CASE MANAGEM HNO ID: [id number] Author: Carly NessRn) SEYMOUR Man Service: Case [...] once a week. Pt nurse is from [facility] ). Carmen would like AVS faxed at d/c to [phone] SIGNATURE: Carly Man RN,BSN PATIENT NAME: Pedro Pablo Sierra DATE: October 09, 2019 TIME: 1:44 PM PAGER/CONTACT #: [phone] [facility] CASE MGT INIT ASSESon 2019 CASE MGT INIT [facility] HNO ID: [id number] Author: Carly NessRn) SEYMOUR Man Service: Case Management Author Type: Registered Nurse Type: Care Mgt Initial Assessment Filed: 10/09/2019 12:41 PM Note Text: CARE MANAGEMENT: ASSESSMENT AND DISCHARGE PLAN SERVICE DATE: October 09, 2019 SERVICE TIME: 1240 PRIMARY CARE PHYSICIAN: DAIJA MORTON MD ADMISSION STATUS: Inpatient Needs Prior to Discharge: To Be Determined MEDICAL: [facility] 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 Last discharge within 30 days: No Advance Directive: Current Advance Directive: Health Care Power of Dust Mixer;Living Will In Chart: Yes Up To Date [...] Completely I feel financially burdened by my fax-eg-[id number] expenses for my prescription medication:: 0 - Disagree Completely Risk Score: 0 Patient is categorized as: Low risk < 2 Are you interested in bedside delivery of your medications? No Is Patient Psychosocially Complex?: No ASSESSMENT AND PLAN: Medical Needs: Medical Needs: Two or more chronic diseases;Fall risk or frequent falls Psychosocial Needs: Psychosocial Needs: None FREEDOM OF CHOICE EXPLAINED: [place] of Choice Given: No Reason Not Given: No placements necessary POTENTIAL TRANSITION PLANS To Be Determined 69 yo male admitted for vascular procedure, vascular surgery following. 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 Pt states B/B [...] 09, 2019 TIME: 12:26 PM PAGER/CONTACT #: [phone] Normal [facility] CBCon 10-09-2019 Erythrocyte distribution width (RBC) [Ratio] 15.7 % High 11.5-15.0 [facility] Comment on above: Performed By: #### C BC, BMP, MG1, PHOS, PTT, PT ####[facility] [place], [place] [phone] Hematocrit (Bld) [Volume fraction] 28.4 % Low 39.0-51.0 [facility] Comment on above: Performed By: #### C BC, BMP, MG1, PHOS, PTT, PT ####[place] [phone] MCH (RBC) [Entitic mass] 30.2 pG Normal 26.0-34.0 [facility] Comment on above: Performed By: #### C BC, BMP, MG1, PHOS, PTT, PT ####[place] [phone] MCHC (RBC) [Mass/Vol] 32.7 g/dL Normal 30.5-36.0 [facility] Comment on above: Performed By: #### C BC, BMP, MG1, PHOS, PTT, PT ####[place] [phone] MCV (RBC) [Entitic vol] 92.2 fL Normal 80.0-100.0 [facility] Comment on above: Performed By: #### C BC, BMP, MG1, PHOS, PTT, PT ####[place] [phone] Platelet mean volume (Bld) [Entitic vol] 9.9 fL Normal 9.0-12.7 [facility] Comment on above: Performed By: #### C BC, BMP, MG1, PHOS, PTT, PT ####[place] [phone] Platelets (Bld) [#/Vol] 220 10*3/uL Normal 150-400 [facility] Comment on above: Performed By: #### C BC, BMP, MG1, PHOS, PTT, PT ####[place] [phone] RBC (Bld) [#/Vol] 3.08 10*6/uL Low 4.20-6.00 [facility] Comment on above: Performed By: #### C BC, BMP, MG1, PHOS, PTT, PT ####[place] [phone] WBC (Bld) [#/Vol] 7.77 10*3/uL Normal 3.70-11.00 [facility] Comment on above: Performed By: #### C BC, BMP, MG1, PHOS, PTT, PT ####[place] [phone] CBC and Differentialon 10-08 Abs Baso <0.03 Normal <0.11 [facility] Comment on above: Performed By: #### C BCDIF ####[place] [phone] Abs Bee 0.50 k/uL Normal <0.87 [facility] Comment on above: Performed By: #### C BCDIF ####[place] [phone] Abs Neut 5.57 k/uL Normal 1.45-7.50 [facility] Comment on above: Performed By: #### C BCDIF ####[place] [phone] Basophils/100 WBC (Bld) 0.3 % Normal [facility] Comment on above: Performed By: #### C BCDIF ####[place] [phone] DTYPE Auto Diff Normal [facility] Comment on above: Performed By: #### C BCDIF ####[place] [phone] Eosinophils (Bld) [#/Vol] 10*3/uL Normal <0.46 [facility] Comment on above: Performed By: #### C BCDIF ####[place] [phone] Eosinophils/100 WBC (Bld) 0.1 % Normal [facility] Comment on above: Performed By: #### C BCDIF ####[place] [phone] Erythrocyte distribution width (RBC) [Ratio] 16.0 % High 11.5-15.0 [facility] Comment on above: Performed By: #### C BCDIF ####[place] [phone] Hematocrit (Bld) [Volume fraction] 28.9 % Low 39.0-51.0 [facility] Comment on above: Performed By: #### C BCDIF ####[place] [phone] Hemoglobin (Bld) [Mass/Vol] 9.3 g/dL Low 13.0-17.0 [facility] Comment on above: Performed By: #### C BCDIF ####[place] [phone] Performed By: #### C BC, BMP, MG1, PHOS, PTT, PT ####[place] [phone] Lymphocytes (Bld) [#/Vol] 1.19 10*3/uL Normal 1.00-4.00 [facility] Comment on above: Performed By: #### C BCDIF ####[place] [phone] Lymphocytes/100 WBC (Bld) 16.3 % Normal [facility] Comment on above: Performed By: #### C BCDIF ####[place] [phone] MCH (RBC) [Entitic mass] 30.0 pG Normal 26.0-34.0 [facility] Comment on above: Performed By: #### C BCDIF ####[place] [phone] MCHC (RBC) [Mass/Vol] 32.2 g/dL Normal 30.5-36.0 [facility] Comment on above: Performed By: #### C BCDIF ####[place] [phone] MCV (RBC) [Entitic vol] 93.2 fL Normal 80.0-100.0 [facility] Comment on above: Performed By: #### C BCDIF ####[address] [phone] Monocytes/100 WBC (Bld) 6.9 % Normal [facility] Comment on above: Performed By: #### C BCDIF ####[address] [phone] Neutrophils/100 WBC (Bld) 76.4 % Normal [facility] Comment on above: Performed By: #### C BCDIF ####[address] [phone] Platelet mean volume (Bld) [Entitic vol] 9.8 fL Normal 9.0-12.7 [facility] Comment on above: Performed By: #### C BCDIF ####[place] [phone] Platelets (Bld) [#/Vol] 200 10*3/uL Normal 150-400 [facility] Comment on above: Performed By: #### C BCDIF ####[address] [phone] RBC (Bld) [#/Vol] 3.10 10*6/uL Low 4.20-6.00 [facility] Comment on above: Performed By: #### C BCDIF ####[address] [phone] WBC (Bld) [#/Vol] 7.29 10*3/uL Normal 3.70-11.00 [facility] Comment on above: Performed By: #### C BCDIF ####[address] [phone] MEDICAL EMERon 10-09-2019 MEDICAL LEYLA HNO ID: [id number] Author: Misael Jeter MD Service: Critical Care [...] Jeter MD General Surgery Resident PGY2 Pager: [phone] 10/09/2019 5:11 PM Normal [facility] Magnesiumon 10-09-2019 Magnesium [Mass/Vol] 2.1 mg/dL Normal 1.7-2.6 [facility] Comment on above: Result Comment: Revi ewed Performed By: #### C BC, BMP, MG1, PHOS, PTT, PT ####[facility] [place], [place] [phone] NURSING PROGon 10-09-2019 NURSING PROG HNO ID: [id number] Author: Amanda (Rn) SEYMOUR Delgadillo Service: Nursing Author Type: Registered Nurse Type: Nursing Progress Note Filed: 10/09/2019 6:36 PM Note Text: Nursing Progress Note Patient Name: Pedro Pablo Sierra Patient Location: [id number] __ Daily Note: 1745: Bedside handoff received from SEYMOUR Shields. 1800: Dr. Fish at bedside. Patient c/o numbness in left leg. Bilateral DP and PT pulses doppled. Dr. Fish obtaining consent for surgery tomorrow. 1900: Bedside handoff given to SEYMOUR Jarrell. This note was completed by: Amanda Delgadillo RN [facility] NURSING PROG HNO ID: [id number] Author: Cornelius Hutchison) SEYMOUR Gonzalez Service: Nursing Author Type: Registered Nurse Type: Nursing Progress Note Filed: 10/09/2019 5:39 PM Note Text: Nursing Progress Note Patient Name: Pedro Pablo Sierra Patient Location: [id number]/[facility]0 [facility] __ Daily Note: 0700 Bedside report received from previous shift RN. 0800 Assessment completed and charted. Neuro intact. VSS. Pulses present via doppler. See flowsheets. 1200 Assessment completed and charted. 1600 Reassessment completed and charted. 1730 Heparin gtt started. See AUG. 1744 Bedside report given to Tigist AHUJA. 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 Formal arterial duplex of LLE shows occluded HANDS PARTER. Plan for exploration and revascularization with Dr. 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 ETX#[id number] For questions Monday through Monday 6am to 6pm please page Red Team [phone] For questions during nights (6pm - 6am) and weekends, please contact the General Surgery Equipment Technician pager, [phone] [facility] PROGRESS HNO ID: [id number] Author: Rashawn Huntley Service: Critical Care Author [...] Medications reviewed. Please refer to [facility] for list of inpatient medications. Current Facility-Administered Medications Medication Dose Route Frequency Provider Last Rate Last Dose - meperidine (PF) 12.5 mg injection (DEMEROL) 12.5 mg INTRAVENOUS q 10 MIN PRN Anabel Lozano - HYDROmorphone 0.2 mg injection (DILAUDID) 0.2 mg INTRAVENOUS q 5 MIN PRN Anabel oLzano - prochlorperazine 10 mg injection (COMPAZINE) 10 mg INTRAVENOUS q 6 H PRN Anabel Lozano - heparin 5,000 Units injection 5,000 Units SUBCUTANEOUS q 12 H Rashawn Huntley - NaCl 0.9% 3-5 mL 3-5 mL INTRAVENOUS q 12 H Rahsawn Huntley 5 mL at 10/08/19 1700 - [...] listed below. Plese refer to [facility] for a full listing of cultures obtained during this hospitalization. ? N/A DIAGNOSTIC TESTS: The following diagnostic tests/findings were reviewed: ? Most recent labs and imaging results. MOST RECENT CXR FINDINGS: n/a OPERATIVE PROCEDURE(S): Date of surgery: 10/08/19 Procedure: Left common HANDS PARTER endarterectomy with bovine path Left profundoplasty Left iliac stenting X4 (I-Cast X2, Jessica X2) Multiple angiograms with angioplasty Surgeon: Dr. 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 Huntley ICU Checklist --------- --- VTE Prophylaxis: SIGNATURE: Misael Jeter MD PATIENT NAME: Pedro Pablo Sierra DATE: October 09, 2019 TIME: 6:40 AM PAGER/CONTACT #: [phone] [facility] STAFF PHYSICIAN NOTE OF PERSONAL INVOLVEMENT [...] Essential HTN GERD Procedure/Surgeon 10/08/19 S/P L HANDS PARTER endarterectomy with bovine path, profundoplasty and iliac [...] DO 8:20 AM October 09, 2019 Normal [facility] PTT,Anticoag Therapyon 10-08 aPTT Coag (Bld) [Time] 23.9 s Normal 23.0-32.4 [facility] Comment on above: Result Comment: Unfr [...] laboratory APTT reagent in use throughout the [facility]. Performed By: #### P T, PTTAC ####[address] [phone] Phosphoruson 10-09-2019 Phosphate [Mass/Vol] 3.6 mg/dL Normal 2.5-4.5 [facility] Comment on above: Performed By: #### C BC, BMP, MG1, PHOS, PTT, PT ####[address] [phone] Protimeon 10-09-2019 PT Coag (PPP) [Time] 10.2 s Normal 9.7-13.0 [facility] Comment on above: Performed By: #### P T, PTTAC ####[address] [phone] PT Coag (PPP) [Time] 1.0 s Normal 0.9-1.3 [facility] Comment on above: Result Comment: Teri min K Antagonist (VKA) Therapeutic Range: INR 2 to 3 (Target INR of 2.5) Note: For patients treated with VKA drugs, such as warfarin, the [place] [employer] 2012 Guideline recommends [...] [phone] Performed By: #### P T, PTTAC ####[place] [phone] Performed By: #### C BC, BMP, MG1, PHOS, PTT, PT ####[place] [phone] PT Coag (PPP) [Time] 10.5 s Normal 9.7-13.0 [facility] Comment on above: Performed By: #### C BC, BMP, MG1, PHOS, PTT, PT ####[place] [phone] Staph aureus PCRon 0 MRSA PCR Negative [facility] Comment on above: Performed By: #### S APCR ####[place] [phone] S aureus Spec Source Nasal [facility] Comment on above: Performed By: #### S APCR ####[phone] Staph aureus PCR Negative [facility] Comment on above: Performed By: #### S APCR ####[place] [phone] [phone] THERAPY NTon 10-09-2019 THERAPY NT HNO ID: [id number] Author: Shakir Alicea (Pt) Mode Service: Physical Therapy Author Type: Physical Therapist Type: Therapy (PT/OT/Speech/Resp) Filed: 10/09/2019 2:58 PM Note Text: Physical Therapy Evaluation SERVICE DATE: 10/09/2019 SERVICE TIME: 1055 to 1120 ROOM: [id number] Recommended Discharge Disposition: Home PT [...] ness on feet Interventions Provided: Evaluation;Gait Training (60720) $ Evaluation-Moderate (17701) Billed Units: 1 unit Gait Training (95903) Treatment Minutes: 10 1 unit Skilled Intervention(s): [...] Consult : PVD s/p L LE redo HANDS PARTER endarterectomy, L profundoplasty, iliac stenting on 10/08/19 Relevant Past Medical History: CAD, [place], HTN, HLD, COPD, PJ, DM, anxiety, depression, blind R eye Patient Report: Pt agreeable to participate in therapy session Home Environment Patient Lives With: Self/Alone 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 Entry To Home: Stairs;Other: See Comment(stair [...] October 09, 2019 TIME: 2:46 PM Normal [facility] THERAPY NT HNO ID: [id number] Author: Caitlin (Ot) William Service: Occupational Therapy Author Type: Occupational Therapist Type: Therapy (PT/OT/Speech/Resp) Filed: 10/09/2019 12:48 PM Note Text: Occupational Therapy Evaluation SERVICE DATE: 10/09/2019 SERVICE TIME: 1010 to 1050 ROOM: [place] [address] Recommended Discharge Disposition: Home OT Justification For [...] and Awareness;Unsteadiness on feet Interventions Provided: Evaluation;Self Chcf Management (41714) $ Evaluation-Moderate (61038) Billed Units: 1 unit Self Chcf Management (27672) Treatment Minutes: 25 2 units Skilled Intervention(s): [...] Reason for Occupational Therapy Consult: redo L HANDS PARTER endarterectomy, L profundoplasty, L iliac stenting 10/07 Relevant Past Medical History: CAD, MO, HTN, HLD, COPD, PJ, DM, anxiety, depression, blind R eye Patient Report: My daughter is a nurse. She's over a lot. 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 Author Type: [...] Diagnosis: PVD (peripheral vascular disease) ([facility]) (PVD (peripheral vascular disease) ([facility]) [I73.9]) Surgeon: Ryan May MD [...] October 08, 2019 TIME: 6:39 PM CSN: [id number] [facility] ANES PRE-OPon 10-08-2019 ANES PRE-OP HNO ID: [id number] Author: Anabel Lozano Service: ? Author Type: [...] movements. - COMPOUNDED PRESCRIPTION Aerosol supplies Dx:J44.1 NPI#[id number] - ipratropium-albuterol (DUONEB) 0.5 mg-3 mg(2.5 mg [...] October 08, 2019 TIME: 8:42 AM CSN: [id number] Normal [facility] APTTon 10-08-2019 aPTT Coag (Bld) [Time] 53.2 s High 23.0-32.4 [facility] Comment on above: Result Comment: Unfr [...] laboratory APTT reagent in use throughout the [facility]. Performed By: #### C BC, BMP, MG1, PHOS, PT, PTT ####[place] [id number] [place], [place] [phone] Basic Metabolic Panlon 10-07 Anion gap [Moles/Vol] 13 mmol/L Normal 9-18 [facility] Comment on above: Performed By: #### C BC, BMP, MG1, PHOS, PT, PTT ####[facility] [place], [place] [phone] Calcium [Mass/Vol] 8.4 mg/dL Low 8.5-10.5 [facility] Comment on above: Performed By: #### C BC, BMP, MG1, PHOS, PT, PTT ####[place] [address] [place], [place] [phone] Chloride [Moles/Vol] 100 mmol/L Normal 98-110 [facility] Comment on above: Performed By: #### C BC, BMP, MG1, PHOS, PT, PTT ####[place] [phone] CO2 [Moles/Vol] 24 mmol/L Normal 23-32 [facility] Comment on above: Performed By: #### C BC, BMP, MG1, PHOS, PT, PTT ####[place] [phone] Creatinine [Mass/Vol] 0.71 mg/dL Normal 0.70-1.40 [facility] Comment on above: Performed By: #### C BC, BMP, MG1, PHOS, PT, PTT ####[place] [phone] eGFR- Amer. >60 Normal >60 [facility] Comment on above: Performed By: #### C BC, BMP, MG1, PHOS, PT, PTT ####[place] [phone] GFR/1.73 sq M predicted among non-blacks MDRD (S/P/Bld) [Vol rate/Area] mL/min/{1.73_m2} Normal >60 [facility] Comment on above: Performed By: #### C BC, BMP, MG1, PHOS, PT, PTT ####[place] [phone] Glucose [Mass/Vol] 160 mg/dL High 65-100 [facility] Comment on above: Performed By: #### C BC, BMP, MG1, PHOS, PT, PTT ####[place] [phone] Potassium [Moles/Vol] 4.1 mmol/L Normal 3.5-5.0 [facility] Comment on above: Performed By: #### C BC, BMP, MG1, PHOS, PT, PTT ####[place] [phone] Sodium [Moles/Vol] 137 mmol/L Normal 135-146 [facility] Comment on above: Performed By: #### C BC, BMP, MG1, PHOS, PT, PTT ####[place] [phone] Urea nitrogen [Mass/Vol] 12 mg/dL Normal 10-25 [facility] Comment on above: Performed By: #### C BC, BMP, MG1, PHOS, PT, PTT ####[place] [phone] CBCon 10-08-2019 Erythrocyte distribution width (RBC) [Ratio] 15.6 % High 11.5-15.0 [facility] Comment on above: Performed By: #### C BC, BMP, MG1, PHOS, PT, PTT ####[place] [phone] Hematocrit (Bld) [Volume fraction] 35.7 % Low 39.0-51.0 [facility] Comment on above: Performed By: #### C BC, BMP, MG1, PHOS, PT, PTT ####[place] [phone] Hemoglobin (Bld) [Mass/Vol] 11.7 g/dL Low 13.0-17.0 [facility] Comment on above: Performed By: #### C BC, BMP, MG1, PHOS, PT, PTT ####[place] [phone] MCH (RBC) [Entitic mass] 30.3 pG Normal 26.0-34.0 [facility] Comment on above: Performed By: #### C BC, BMP, MG1, PHOS, PT, PTT ####[place] [phone] MCHC (RBC) [Mass/Vol] 32.8 g/dL Normal 30.5-36.0 [facility] Comment on above: Performed By: #### C BC, BMP, MG1, PHOS, PT, PTT ####[address] [phone] MCV (RBC) [Entitic vol] 92.5 fL Normal 80.0-100.0 [facility] Comment on above: Performed By: #### C BC, BMP, MG1, PHOS, PT, PTT ####[address] [phone] Platelet mean volume (Bld) [Entitic vol] 10.1 fL Normal 9.0-12.7 [facility] Comment on above: Performed By: #### C BC, BMP, MG1, PHOS, PT, PTT ####[address] [phone] Platelets (Bld) [#/Vol] 280 10*3/uL Normal 150-400 [facility] Comment on above: Performed By: #### C BC, BMP, MG1, PHOS, PT, PTT ####[address] [phone] RBC (Bld) [#/Vol] 3.86 10*6/uL Low 4.20-6.00 [facility] Comment on above: Performed By: #### C BC, BMP, MG1, PHOS, PT, PTT ####[address] [phone] WBC (Bld) [#/Vol] 10.62 10*3/uL Normal 3.70-11.00 [facility] Comment on above: Performed By: #### C BC, BMP, MG1, PHOS, PT, PTT ####[address] [phone] HISTORY PHYSICALon 0 HISTORY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 99 % Dr. Daija Morton MD Work Phone: 4(585)821-111562 [place] [address] 01-03-2025 10:00-0400 Systolic blood pressure 174 mm[Hg] Dr. Daija Morton MD Work Phone: 7(163)203-771962 [place] [address] 01-03-2025 08:17-0400 Body temperature 97.6 [degF] Dr. Daija Morton MD Work Phone: 9(562)057-142062 [place] [address] 01-03-2025 06:27-0400 Body height 182.[address] Daija Morton MD Work Phone: 0(341)169-361162 [place] [address] 01-03-2025 06:27-0400 Body mass index (BMI) [Ratio] 20.4 kg/m2 Dr. Daija Morton MD Work Phone: 8(348)490-974862 [place] [address] 01-03-2025 06:27-0400 Body weight 68.[address] Daija Morton MD Work Phone: 6(433)763-111062 [place] [address] 12-26-2024 18:05-0400 Diastolic blood pressure 72 mm[Hg] Dr. Daija Morton MD Work Phone: 3(379)598-323462 [place] [address] 12-26-2024 18:05-0400 Heart rate 74 /min Dr. Daija Morton MD Work Phone: 9(895)299-614262 [place] [address] 12-26-2024 18:05-0400 Systolic blood pressure 162 mm[Hg] Dr. Daija Morton MD Work Phone: 3(047)853-335162 [place] [address] 12-26-2024 14:27-0400 Body temperature 97.9 [degF] Dr. Daija Morton MD Work Phone: 8(001)156-498262 [place] [address] 12-26-2024 14:27-0400 Inhaled oxygen flow rate 2 L/min Dr. Daija Morton MD Work Phone: 8(391)057-361362 [place] [address] 12-26-2024 14:27-0400 Respiratory rate 18 /min Dr. Daija Morton MD Work Phone: 2(593)649-402762 [place] [address] 12-26-2024 14:27-0400 SaO2% (BldA) [Mass fraction] 96 % Dr. Daija Morton MD Work Phone: 9(113)953-018662 [place] [address] 12-26-2024 04:00-0400 Body mass index (BMI) [Ratio] 24.5 kg/m2 Dr. Daija Morton MD Work Phone: 3(408)186-757162 [place] [address] 12-25-2024 11:12-0400 Body height 172.[address] Daija Morton MD Work Phone: 4(559)234-374762 [place] [address] 12-25-2024 11:12-0400 Body weight [address] Daija Morton MD Work Phone: 2(071)443-681662 [place] [address] 12-17-2024 18:14-0400 Body temperature 98.5 [degF] Dr. Daija Morton MD Work Phone: 0(641)771-170562 [place] [address] 12-17-2024 18:14-0400 Diastolic blood pressure 91 mm[Hg] Dr. Daija Morton MD Work Phone: 2(610)287-838562 [place] [address] 12-17-2024 18:14-0400 Heart rate 64 /min Dr. Daija Morton MD Work Phone: 9(110)240-015862 [place] [address] 12-17-2024 18:14-0400 Respiratory rate 16 /min Dr. Daija Morton MD Work Phone: 8(682)492-979362 [place] [address] 12-17-2024 18:14-0400 SaO2% (BldA) [Mass fraction] 99 % Dr. Daija Morton MD Work Phone: 6(946)324-174662 [place] [address] 12-17-2024 18:14-0400 Systolic blood pressure 197 mm[Hg] Dr. Daija Morton MD Work Phone: 7(231)391-516562 [place] [address] 12-17-2024 18:00-0400 Inhaled oxygen flow rate 2 L/min Dr. Daija Morton MD Work Phone: 1(423)719-522562 [place] [address] 12-17-2024 16:21-0400 Body height 172.[address] Daija Morton MD Work Phone: 2(426)531-065962 [place] [address] 12-17-2024 16:21-0400 Body mass index (BMI) [Ratio] 24.5 kg/m2 Dr. Daija Morton MD Work Phone: 5(246)827-308862 [place] [address] 12-17-2024 16:21-0400 Body weight [address] Daija Morton MD Work Phone: 6(261)675-880962 [place] [address] 12-16-2024 20:45-0400 Heart rate 76 /min Dr. Daija Morton MD Work Phone: 4(572)819-233062 [place] [address] 12-16-2024 20:45-0400 Respiratory rate 20 /min Dr. Daija Morton MD Work Phone: 9(569)435-448562 [place] [address] 12-16-2024 19:55-0400 Body temperature 98 [degF] Dr. Daija Morton MD Work Phone: 6(640)409-835562 [place] [address] 12-16-2024 19:55-0400 Diastolic blood pressure 72 mm[Hg] Dr. Daija Morton MD Work Phone: 3(552)416-005262 [address] [place] [address] 12-16-2024 19:55-0400 Inhaled oxygen flow rate 2 L/min Dr. Daija Morton MD Work Phone: 7(810)405-616762 [place] [address] 12-16-2024 19:55-0400 SaO2% (BldA) [Mass fraction] 94 % Dr. Daija Morton MD Work Phone: 8(003)579-675662 [place] [address] 12-16-2024 19:55-0400 Systolic blood pressure 160 mm[Hg] Dr. Daija Morton MD Work Phone: 8(311)102-858362 [place] [address] 12-16-2024 03:13-0400 Body mass index (BMI) [Ratio] 23.4 kg/m2 Dr. Daija Morton MD Work Phone: 6(969)973-582562 [place] [address] 12-16-2024 03:13-0400 Body weight 70.[address] Daija Morton MD Work Phone: 3(265)338-881562 [place] [address] 12-14-2024 13:01-0400 Body height 172.[address] Daija Morton MD Work Phone: 8(403)327-682862 [place] [address] 12-13-2024 20:55-0400 Body temperature 98.3 [degF] Dr. Daija Morton MD Work Phone: 7(421)080-611462 [place] [address] 12-13-2024 20:55-0400 Diastolic blood pressure 73 mm[Hg] Dr. Daija Morton MD Work Phone: 6(277)308-810862 [place] [address] 12-13-2024 20:55-0400 Heart rate 65 /min Dr. Daija Morton MD Work Phone: 6(792)816-340762 [place] [address] 12-13-2024 20:55-0400 Respiratory rate 26 /min Dr. Daija Morton MD Work Phone: 0(469)021-947662 [place] [address] 12-13-2024 20:55-0400 SaO2% (BldA) [Mass fraction] 98 % Dr. Daija Morton MD Work Phone: 4(969)878-774062 [place] [address] 12-13-2024 20:55-0400 Systolic blood pressure 191 mm[Hg] Dr. Daija Morton MD Work Phone: 7(554)279-141162 [place] [address] 12-13-2024 18:10-0400 Inhaled oxygen flow rate 3.5 L/min Dr. Daija Morton MD Work Phone: 4(495)016-144262 [place] [address] 12-13-2024 17:46-0400 Body height 172.[address] Daija Morton MD Work Phone: [facility] 12-13-2024 17:46-0400 Body mass index (BMI) [Ratio] 24.3 kg/m2 Dr. Daija Morton MD Work Phone: [facility] 12-13-2024 17:46-0400 Body weight 72.[address] Daija Morton MD Work Phone: [facility] 12-12-2024 13:57-0400 Body mass index (BMI) [Ratio] 24.05 kg/m2 Anjel Older [employer] INCIDENT ANALYST.PHOTOGRAPHIC TECHNICIAN Work Phone: [facility] 12-12-2024 13:57-0400 Body weight 71.76 kg Anjel Older [employer]BER INCIDENT ANALYST.PHOTOGRAPHIC TECHNICIAN Work Phone: [facility] 12-12-2024 13:57-0400 Diastolic blood pressure 83 mm[Hg] Anjel Older [employer]BER INCIDENT ANALYST.PHOTOGRAPHIC TECHNICIAN Work Phone: [facility] 12-12-2024 13:57-0400 Heart rate 65 /min Anjel Older [employer]BER INCIDENT ANALYST.PHOTOGRAPHIC TECHNICIAN Work Phone: [facility] 12-12-2024 13:57-0400 Respiratory rate 20 /min Anjel Older [employer]BER INCIDENT ANALYST.PHOTOGRAPHIC TECHNICIAN Work Phone: [facility] 12-12-2024 13:57-0400 SaO2% (BldA) [Mass fraction] 94 % Anjel Older [employer] INCIDENT ANALYST.PHOTOGRAPHIC TECHNICIAN Work Phone: [facility] 12-12-2024 13:57-0400 Systolic blood pressure 185 mm[Hg] Anjel Older [employer]BER INCIDENT ANALYST.PHOTOGRAPHIC TECHNICIAN Work Phone: [facility] 09-02-2024 20:48-0400 Heart rate 62 /min Dr. Daija Morton MD Work Phone: [facility] 09-02-2024 19:34-0400 Body temperature 97.5 [degF] Dr. Daija Morton MD Work Phone: [facility] 09-02-2024 19:34-0400 Diastolic blood pressure 77 mm[Hg] Dr. Daija Morton MD Work Phone: 7(139)378-767362 [place] [address] 09-02-2024 19:34-0400 Respiratory rate 16 /min Dr. Daija Morton MD Work Phone: 1(004)331-642662 [place] [address] 09-02-2024 19:34-0400 SaO2% (BldA) [Mass fraction] 92 % Dr. Daija Morton MD Work Phone: 2(149)009-965562 [place] [address] 09-02-2024 19:34-0400 Systolic blood pressure 146 mm[Hg] Dr. Daija Morton MD Work Phone: 7(637)547-876062 [place] [address] 09-02-2024 10:22-0400 Body height 172.[address] Daija Morton MD Work Phone: 8(799)241-776462 [place] [address] 09-02-2024 10:22-0400 Body weight 68.[address] Daija Morton MD Work Phone: 5(387)458-140862 [place] [address] 09-02-2024 06:00-0400 Body mass index (BMI) [Ratio] 22.8 kg/m2 Dr. Daija Morton MD Work Phone: 6(610)831-600862 [place] [address] 09-01-2024 22:41-0400 Inhaled oxygen flow rate 2 L/min Dr. Daija Morton MD Work Phone: 4(708)289-257162 [place] [address] 08-25-2024 18:11-0400 Diastolic blood pressure 90 mm[Hg] Dr. Daija Morton MD Work Phone: 7(214)074-934662 [place] [address] 08-25-2024 18:11-0400 Heart rate 66 /min Dr. Daija Morton MD Work Phone: 4(569)178-806362 [place] [address] 08-25-2024 18:11-0400 Respiratory rate 24 /min Dr. Daija Morton MD Work Phone: 0(205)777-318962 [place] [address] 08-25-2024 18:11-0400 SaO2% (BldA) [Mass fraction] 93 % Dr. Daija Morton MD Work Phone: 6(270)965-949962 [place] [address] 08-25-2024 18:11-0400 Systolic blood pressure 197 mm[Hg] Dr. Daija Morton MD Work Phone: [facility] 08-25-2024 16:12-0400 Body height 165.[address] Daija Morton MD Work Phone: [facility] 08-25-2024 16:12-0400 Body temperature 97.7 [degF] Dr. Daija Morton MD Work Phone: [facility] 03-23-2024 13:19-0400 Diastolic blood pressure 98 mm[Hg] Pura Praisler-Wood [employer] INCIDENT ANALYST.PHOTOGRAPHIC TECHNICIAN Work Phone: [facility] 03-23-2024 13:19-0400 Systolic blood pressure 230 mm[Hg] Pura Praisler-Wood [employer] INCIDENT ANALYST.PHOTOGRAPHIC TECHNICIAN Work Phone: [facility] 03-23-2024 13:12-0400 Body mass index (BMI) [Ratio] 20.92 kg/m2 Pura Praisler-Wood [employer] INCIDENT ANALYST.PHOTOGRAPHIC TECHNICIAN Work Phone: [facility] 03-23-2024 13:12-0400 Body temperature 96.91 [degF] Pura Praisler-Wood [employer] INCIDENT ANALYST.PHOTOGRAPHIC TECHNICIAN Work Phone: [facility] 03-23-2024 13:12-0400 Body weight 62.4 kg Pura Praisler-Wood [employer] INCIDENT ANALYST.PHOTOGRAPHIC TECHNICIAN Work Phone: [facility] 03-23-2024 13:12-0400 Heart rate 74 /min Pura Praisler-Wood [employer] INCIDENT ANALYST.PHOTOGRAPHIC TECHNICIAN Work Phone: [facility] 03-23-2024 13:12-0400 Respiratory rate 16 /min Pura Praisler-Wood [employer] INCIDENT ANALYST.PHOTOGRAPHIC TECHNICIAN Work Phone: [facility] 11-21-2023 12:49-0400 Diastolic blood pressure 94 mm[Hg] Rebekah Bogner PA-C Work Phone: [facility] 11-21-2023 12:49-0400 Systolic blood pressure 200 mm[Hg] Rebekah Bogner PA-C Work Phone: [facility] 11-21-2023 12:42-0400 Body mass index (BMI) [Ratio] 22.96 kg/m2 Rebekah Bogner PA-C Work Phone: [facility] 11-21-2023 12:42-0400 Body weight 68.49 kg Rebekah Bogner PA-C Work Phone: [facility] 11-21-2023 12:42-0400 Heart rate 60 /min Rebekah Bogner PA-C Work Phone: [facility] 11-21-2023 12:42-0400 Respiratory rate 16 /min Rebekah Bogner PA-C Work Phone: [facility] 11-21-2023 12:42-0400 SaO2% (BldA) [Mass fraction] 92 % Rebekah Bogner PA-C Work Phone: [facility] 08-02-2023 19:35-0500 Inhaled oxygen flow rate 2 L/min Dr. Daija Morton Work Phone: [facility] 08-02-2023 19:27-0500 Body temperature 97.9 [degF] Dr. Daija Morton Work Phone: [facility] 08-02-2023 19:27-0500 Diastolic blood pressure 59 mm[Hg] Dr. Daija Morton Work Phone: [facility] 08-02-2023 19:27-0500 Heart rate 98 /min Dr. Daija Morton Work Phone: [facility] 08-02-2023 19:27-0500 Respiratory rate 16 /min Dr. Daija Morton Work Phone: [facility] 08-02-2023 19:27-0500 SaO2% (BldA) [Mass fraction] 93 % Dr. Daija Morton Work Phone: [facility] 08-02-2023 19:27-0500 Systolic blood pressure 149 mm[Hg] Dr. Daija Morton Work Phone: 2(014)175-051762 [place] [address] 07-31-2023 10:17-0500 Body height 172.[address] Daija Morton Work Phone: 3(161)455-792162 [place] [address] 07-31-2023 10:17-0500 Body weight 67.[address] Daija Morton Work Phone: 7(101)035-368962 [place] [address] 07-31-2023 00:57-0500 Body mass index (BMI) [Ratio] 22.4 kg/m2 Dr. Daija Morton Work Phone: 6(363)677-191962 [place] [address] 07-31-2023 00:05-0500 Body temperature 99 [degF] Dr. Daija Morton Work Phone: 9(926)010-858062 [place] [address] 07-31-2023 00:05-0500 Diastolic blood pressure 107 mm[Hg] Dr. Daija Morton Work Phone: 8(427)600-432762 [place] [address] 07-31-2023 00:05-0500 Heart rate 107 /min Dr. Daija Morton Work Phone: 1(872)643-012362 [place] [address] 07-31-2023 00:05-0500 Respiratory rate 30 /min Dr. Daija Morton Work Phone: 7(125)430-900062 [place] [address] 07-31-2023 00:05-0500 SaO2% (BldA) [Mass fraction] 98 % Dr. Daija Morton Work Phone: 6(517)442-421462 [place] [address] 07-31-2023 00:05-0500 Systolic blood pressure 173 mm[Hg] Dr. Daija Morton Work Phone: 0(443)256-251562 [place] [address] 07-30-2023 23:25-0500 Inhaled oxygen flow rate 3 L/min Dr. Daija Morton Work Phone: 1(675)397-443662 [place] [address] 07-30-2023 20:30-0500 Body height 172.[address] Daija Morton Work Phone: 0(671)367-165762 [place] [address] 07-30-2023 20:30-0500 Body mass index (BMI) [Ratio] 24.2 kg/m2 Dr. Daija Morton Work Phone: 8(901)134-904062 [place] [address] 07-30-2023 20:30-0500 Body weight 72.[address] Daija Morton Work Phone: 3(088)488-354262 [place] [address] 07-26-2023 12:10-0500 Diastolic blood pressure 59 mm[Hg] Dr. Daija Morton Work Phone: 2(172)631-378762 [place] [address] 07-26-2023 12:10-0500 Heart rate 67 /min Dr. Daija Morton Work Phone: 4(576)674-881062 [place] [address] 07-26-2023 12:10-0500 Respiratory rate 18 /min Dr. Daija Morton Work Phone: 7(848)393-732762 [place] [address] 07-26-2023 12:10-0500 SaO2% (BldA) [Mass fraction] 90 % Dr. Daija Morton Work Phone: 0(542)396-454962 [place] [address] 07-26-2023 12:10-0500 Systolic blood pressure 107 mm[Hg] Dr. Daija Morton Work Phone: 1(192)798-794962 [place] [address] 07-26-2023 08:38-0500 Body temperature 97.8 [degF] Dr. Daija Morton Work Phone: 3(293)371-323262 [place] [address] 07-26-2023 06:59-0500 Inhaled oxygen flow rate 2 L/min Dr. Daija Morton Work Phone: 9(269)560-526062 [place] [address] 07-25-2023 16:00-0500 Body weight 51.[address] Daija Morton Work Phone: 5(293)398-415562 [place] [address] 07-24-2023 21:55-0500 Body mass index (BMI) [Ratio] 17.4 kg/m2 Dr. Daija Morton Work Phone: 1(886)453-516162 [place] [address] 07-24-2023 21:13-0500 Diastolic blood pressure 89 mm[Hg] Dr. Daija Morton Work Phone: 0(085)502-987562 [place] [address] 07-24-2023 21:13-0500 Heart rate 65 /min Dr. Daija Morton Work Phone: 2(740)838-454362 [place] [address] 07-24-2023 21:13-0500 Respiratory rate 16 /min Dr. Daija Morton Work Phone: 6(875)810-019662 [place] [address] 07-24-2023 21:13-0500 SaO2% (BldA) [Mass fraction] 91 % Dr. Daija Morton Work Phone: 4(964)396-418662 [place] [address] 07-24-2023 21:13-0500 Systolic blood pressure 210 mm[Hg] Dr. Daija Morton Work Phone: 9(319)859-921262 [place] [address] 07-24-2023 17:27-0500 Body mass index (BMI) [Ratio] 22.8 kg/m2 Dr. Daija Morton Work Phone: 2(136)442-439262 [place] [address] 07-24-2023 17:27-0500 Body weight [address] Daija Morton Work Phone: 6(803)494-236062 [place] [address] 07-24-2023 16:44-0500 Body height 172.[address] Daija Morton Work Phone: 4(916)926-049062 [place] [address] 07-24-2023 16:44-0500 Body temperature 96.7 [degF] Dr. Daija Morton Work Phone: 1(839)247-010662 [place] [address] 04-04-2023 11:37-0400 Diastolic blood pressure 79 mm[Hg] Dr. Daija Morton Work Phone: 0(232)734-397162 [place] [address] 04-04-2023 11:37-0400 Heart rate 44 /min Dr. Daija Morton Work Phone: 6(909)551-575262 [place] [address] 04-04-2023 11:37-0400 Systolic blood pressure 188 mm[Hg] Dr. Daija Morton Work Phone: 0(004)191-478762 [place] [address] 04-04-2023 10:02-0400 Body temperature 97.6 [degF] Dr. Daija Morton Work Phone: 2(774)607-382362 [place] [address] 04-04-2023 10:02-0400 Respiratory rate 18 /min Dr. Daija Morton Work Phone: 5(256)190-718962 [place] [address] 04-04-2023 10:02-0400 SaO2% (BldA) [Mass fraction] 92 % Dr. Daija Morton Work Phone: 1(838)255-839262 [place] [address] 04-03-2023 15:53-0400 Inhaled oxygen flow rate 2 L/min Dr. Daija Morton Work Phone: 6(031)970-033662 [place] [address] 03-31-2023 14:20-0400 Body mass index (BMI) [Ratio] 20.5 kg/m2 Dr. Daija Morton Work Phone: 5(903)818-622462 [place] [address] 03-31-2023 14:20-0400 Body weight [address] Daija Morton Work Phone: 6(561)621-907562 [place] [address] 03-31-2023 09:57-0400 Body height 175.[address] Daija Morton Work Phone: 1(682)173-852262 [place] [address] 03-30-2023 20:26-0400 Body temperature 96.7 [degF] Dr. Daija Morton Work Phone: 0(397)096-050862 [place] [address] 03-30-2023 20:26-0400 Diastolic blood pressure 78 mm[Hg] Dr. Daija Morton Work Phone: 6(851)722-377962 [place] [address] 03-30-2023 20:26-0400 Heart rate 71 /min Dr. Daija Morton Work Phone: 1(768)134-460862 [place] [address] 03-30-2023 20:26-0400 Respiratory rate 18 /min Dr. Daija Morton Work Phone: 4(898)095-223662 [place] [address] 03-30-2023 20:26-0400 SaO2% (BldA) [Mass fraction] 97 % Dr. Daija Morton Work Phone: 3(747)172-191562 [place] [address] 03-30-2023 20:26-0400 Systolic blood pressure 181 mm[Hg] Dr. Daija Morton Work Phone: 8(953)236-984062 [place] [address] 03-30-2023 14:10-0400 Body height 172.[address] Daija Morton Work Phone: 3(559)962-270862 [place] [address] 03-29-2023 19:22-0400 Body mass index (BMI) [Ratio] 21.9 kg/m2 Dr. Daija Morton Work Phone: 6(877)190-002662 [place] [address] 03-29-2023 19:22-0400 Body weight 65.[address] Daija Morton Work Phone: 2(759)624-653462 [place] [address] 03-29-2023 19:20-0400 Diastolic blood pressure 80 mm[Hg] Dr. Daija Morton Work Phone: 6(407)627-012662 [place] [address] 03-29-2023 19:20-0400 Heart rate 84 /min Dr. Daija Morton Work Phone: 7(124)410-899362 [place] [address] 03-29-2023 19:20-0400 Respiratory rate 18 /min Dr. Daija Morton Work Phone: 0(155)244-131362 [place] [address] 03-29-2023 19:20-0400 SaO2% (BldA) [Mass fraction] 92 % Dr. Daija Morton Work Phone: 7(530)733-050062 [place] [address] 03-29-2023 19:20-0400 Systolic blood pressure 195 mm[Hg] Dr. Daija Morton Work Phone: 0(886)368-074762 [place] [address] 03-29-2023 18:17-0400 Body temperature 97.6 [degF] Dr. Daija Morton Work Phone: 2(125)435-450162 [place] [address] 02-25-2023 19:41-0400 Diastolic blood pressure 87 mm[Hg] Dr. Daija Morton Work Phone: 7(666)475-869562 [place] [address] 02-25-2023 19:41-0400 Heart rate 67 /min Dr. Daija Morton Work Phone: 1(341)177-731262 [place] [address] 02-25-2023 19:41-0400 Respiratory rate 15 /min Dr. Daija Morton Work Phone: 8(296)868-779962 [place] [address] 02-25-2023 19:41-0400 SaO2% (BldA) [Mass fraction] 97 % Dr. Daija Morton Work Phone: 3(555)861-205362 [place] [address] 02-25-2023 19:41-0400 Systolic blood pressure 193 mm[Hg] Dr. Daija Morton Work Phone: [facility] 02-25-2023 19:37-0400 Body mass index (BMI) [Ratio] 22.4 kg/m2 Dr. Daija Morton Work Phone: [facility] 02-25-2023 19:37-0400 Body weight 67.[address] Daija Morton Work Phone: [facility] 02-25-2023 17:22-0400 Body temperature 97 [degF] Dr. Daija Morton Work Phone: [facility] 02-18-2023 01:56-0400 Diastolic blood pressure 113 mm[Hg] [facility] 02-18-2023 01:56-0400 Heart rate 88 /min [facility] 02-18-2023 01:56-0400 Respiratory rate 16 /min [facility] 02-18-2023 01:56-0400 Systolic blood pressure 157 mm[Hg] [facility] 02-18-2023 01:00-0400 SaO2% (BldA) [Mass fraction] 98 % [facility] 02-17-2023 21:35-0400 Body mass index (BMI) [Ratio] 21.5 kg/m2 [facility] 02-17-2023 21:35-0400 Body weight 66.13 kg [facility] 02-17-2023 21:32-0400 Body height 175.26 cm [facility] 02-17-2023 21:32-0400 Body temperature 96.4 [degF] [facility] 12-31-2022 15:16-0400 Body height 173 cm [facility] 12-31-2022 15:16-0400 Body mass index (BMI) [Ratio] 21.7 kg/m2 [facility] 12-31-2022 15:16-0400 Body temperature 96.6 [degF] [facility] 12-31-2022 15:16-0400 Body weight 65.2 kg [facility] 12-31-2022 15:16-0400 Diastolic blood pressure 66 mm[Hg] [facility] 12-31-2022 15:16-0400 Heart rate 75 /min [facility] 12-31-2022 15:16-0400 Respiratory rate 15 /min [facility] 12-31-2022 15:16-0400 SaO2% (BldA) [Mass fraction] 93 % [facility] 12-31-2022 15:16-0400 Systolic blood pressure 118 mm[Hg] [facility] 12-26-2022 14:04-0400 Diastolic blood pressure 90 mm[Hg] Ryan May MD Work Phone: [facility] 12-26-2022 14:04-0400 Heart rate 50 /min Ryan May MD Work Phone: [facility] 12-26-2022 14:04-0400 Systolic blood pressure 207 mm[Hg] Ryan May MD Work Phone: [facility] 10-22-2022 21:40-0400 Diastolic Blood Pressure Non-Invasive [address] PRIYANKA FRANCO MD [facility] 10-22-2022 21:40-0400 Heart rate 88 /min DR PRIYANKA FRANCO MD [facility] 10-22-2022 21:40-0400 Respiratory rate 20 /min DR PRIYANKA FRANCO MD [facility] 10-22-2022 21:40-0400 Systolic Blood Pressure Non-Invasive [address] PRIYANKA FRANCO MD [facility] 10-22-2022 19:59-[address] PRIYANKA FRANCO MD [facility] 10-22-2022 19:59-0400 Body temperature 98.6 [degF] DR PRIYANKA FRANCO MD [facility] 10-22-2022 19:59-0400 Diastolic Blood Pressure Non-Invasive [address] PRIYANKA FRANCO MD [facility] 10-22-2022 19:59-0400 Heart rate 97 /min DR PRIYANKA FRANCO MD [facility] 10-22-2022 19:59-0400 Respiratory rate 21 /min DR PRIYANKA FRANCO MD [facility] 10-22-2022 19:59-0400 Systolic Blood Pressure Non-Invasive [address] PRIYANKA FRANCO MD [facility] 10-21-2022 18:30-0400 Body height 172.72 cm [facility] 10-21-2022 18:30-0400 Body temperature 97.5 [degF] [facility] 10-21-2022 18:30-0400 Diastolic blood pressure 88 mm[Hg] [facility] 10-21-2022 18:30-0400 Heart rate 99 /min [facility] 10-21-2022 18:30-0400 Respiratory rate 16 /min [facility] 10-21-2022 18:30-0400 SaO2% (BldA) [Mass fraction] 96 % [facility] 10-21-2022 18:30-0400 Systolic blood pressure 168 mm[Hg] [facility] 08-27-2022 10:51-0500 Diastolic blood pressure 91 mm[Hg] Daija Morton MD Work Phone: [facility] 08-27-2022 10:51-0500 Heart rate 69 /min Daija Morton MD Work Phone: [facility] 08-27-2022 10:51-0500 Systolic blood pressure 212 mm[Hg] Daija Morton MD Work Phone: [facility] 08-27-2022 10:47-0500 Body temperature 97 [degF] Daija Morton MD Work Phone: [facility] 08-27-2022 10:47-0500 Body weight 71.22 kg Daija Morton MD Work Phone: [facility] 08-27-2022 10:47-0500 Respiratory rate 28 /min Daija Morton MD Work Phone: [facility] 08-27-2022 10:47-0500 SaO2% (BldA) [Mass fraction] 95 % Daija Morton MD Work Phone: [facility] 03-10-2022 10:10-0400 Diastolic blood pressure 90 mm[Hg] Anjel Older [employer] INCIDENT ANALYST.PHOTOGRAPHIC TECHNICIAN Work Phone: [facility] 03-10-2022 10:10-0400 Heart rate 88 /min Anjel Older [employer]BER INCIDENT ANALYST.PHOTOGRAPHIC TECHNICIAN Work Phone: [facility] 03-10-2022 10:10-0400 Respiratory rate 16 /min Anjel Older [employer]BER INCIDENT ANALYST.PHOTOGRAPHIC TECHNICIAN Work Phone: [facility] 03-10-2022 10:10-0400 Systolic blood pressure 158 mm[Hg] Anjel Older [employer]BER INCIDENT ANALYST.PHOTOGRAPHIC TECHNICIAN Work Phone: [facility] 03-08-2022 23:13-0400 Diastolic blood pressure 93 mm[Hg] Dr. Daija Morton Work Phone: [facility] Work Phone: 03-08-2022 23:13-0400 Heart rate 71 /min Dr. Daija Morton Work Phone: [facility] Work Phone: 03-08-2022 23:13-0400 Inhaled oxygen flow rate 3 L/min Dr. Daija Morton Work Phone: [facility] Work Phone: 03-08-2022 23:13-0400 Respiratory rate 16 /min Dr. Daija Morton Work Phone: [facility] Work Phone: 03-08-2022 23:13-0400 SaO2% (BldA) [Mass fraction] 96 % Dr. Daija Morton Work Phone: [facility] Work Phone: 03-08-2022 23:13-0400 Systolic blood pressure 178 mm[Hg] Dr. Daija Morton Work Phone: [facility] Work Phone: 03-08-2022 17:31-0400 Body height 172.[address] Daija Morton Work Phone: [facility] Work Phone: 03-08-2022 17:31-0400 Body mass index (BMI) [Ratio] 20.5 kg/m2 Dr. Daija Morton Work Phone: [facility] Work Phone: 03-08-2022 17:31-0400 Body temperature 97.6 [degF] Dr. Daija Morton Work Phone: [facility] Work Phone: 03-08-2022 17:31-0400 Body weight 61.[address] Daija Morton Work Phone: [facility] Work Phone: 03-07-2022 17:28-0400 Respiratory rate 18 /min Dr. Daija Morton Work Phone: [facility] Work Phone: 03-07-2022 15:23-0400 Body height 172.[address] Daija Morton Work Phone: [facility] Work Phone: 03-07-2022 15:23-0400 Body mass index (BMI) [Ratio] 20.5 kg/m2 Dr. Daija Morton Work Phone: [facility] Work Phone: 03-07-2022 15:23-0400 Body temperature 97.4 [degF] Dr. Daija Morton Work Phone: [facility] Work Phone: 03-07-2022 15:23-0400 Body weight 61.[address] Daija Morton Work Phone: [facility] Work Phone: 03-07-2022 15:23-0400 Diastolic blood pressure 88 mm[Hg] Dr. Daija Morton Work Phone: [facility] Work Phone: 03-07-2022 15:23-0400 Heart rate 84 /min Dr. Daija Morton Work Phone: [facility] Work Phone: 03-07-2022 15:23-0400 SaO2% (BldA) [Mass fraction] 93 % Dr. Daija Morton Work Phone: [facility] Work Phone: 03-07-2022 15:23-0400 Systolic blood pressure 193 mm[Hg] Dr. Daija Morton Work Phone: [facility] Work Phone: 03-02-2022 19:05-0400 Diastolic blood pressure 81 mm[Hg] Dr. Daija Morton Work Phone: [facility] Work Phone: 03-02-2022 19:05-0400 Heart rate 56 /min Dr. Daija Morton Work Phone: [facility] Work Phone: 03-02-2022 19:05-0400 Respiratory rate 18 /min Dr. Daija Morton Work Phone: [facility] Work Phone: 03-02-2022 19:05-0400 SaO2% (BldA) [Mass fraction] 92 % Dr. Daija Morton Work Phone: [facility] Work Phone: 03-02-2022 19:05-0400 Systolic blood pressure 209 mm[Hg] Dr. Daija Morton Work Phone: [facility] Work Phone: 03-02-2022 17:41-0400 Body temperature 97.5 [degF] Dr. Daija Morton Work Phone: [facility] Work Phone: 03-02-2022 15:10-0400 Body height 172.[address] Daija Morton Work Phone: [facility] Work Phone: 03-02-2022 15:10-0400 Body mass index (BMI) [Ratio] 23.5 kg/m2 Dr. Daija Morton Work Phone: [facility] Work Phone: 03-02-2022 15:10-0400 Body weight 70.[address] Daija Morton Work Phone: [facility] Work Phone: 01-31-2022 13:59-0400 Body height 172.7 cm Ryan May MD Work Phone: [facility] 01-31-2022 13:59-0400 Body weight 68.49 kg Ryan May MD Work Phone: [facility] 01-31-2022 13:59-0400 Diastolic blood pressure 99 mm[Hg] Ryan May MD Work Phone: [facility] 01-31-2022 13:59-0400 Systolic blood pressure 168 mm[Hg] Ryan May MD Work Phone: [facility] 01-28-2022 15:53-0400 Diastolic blood pressure 88 mm[Hg] Dr. Daija Morton Work Phone: [facility] Work Phone: 01-28-2022 15:53-0400 Heart rate 54 /min Dr. Daija Morton Work Phone: [facility] Work Phone: 01-28-2022 15:53-0400 Respiratory rate 20 /min Dr. Daija Morton Work Phone: [facility] Work Phone: 01-28-2022 15:53-0400 SaO2% (BldA) [Mass fraction] 97 % Dr. Daija Morton Work Phone: [facility] Work Phone: 01-28-2022 15:53-0400 Systolic blood pressure 200 mm[Hg] Dr. Daija Morton Work Phone: [facility] Work Phone: 01-28-2022 14:03-0400 Body height 172.[address] Daija Morton Work Phone: [facility] Work Phone: 01-28-2022 14:03-0400 Body mass index (BMI) [Ratio] 22.9 kg/m2 Dr. Daija Morton Work Phone: [facility] Work Phone: 01-28-2022 14:03-0400 Body temperature 96.8 [degF] Dr. Daija Morton Work Phone: [facility] Work Phone: 01-28-2022 14:03-0400 Body weight 68.[address] Daija Morton Work Phone: [facility] Work Phone: 01-28-2022 11:41-0400 Diastolic blood pressure 92 mm[Hg] Anjel Older CYBER INCIDENT ANALYST.PHOTOGRAPHIC TECHNICIAN Work Phone: [facility] 01-28-2022 11:41-0400 Heart rate 56 /min Anjel Older CYBER INCIDENT ANALYST.PHOTOGRAPHIC TECHNICIAN Work Phone: [facility] 01-28-2022 11:41-0400 Systolic blood pressure 200 mm[Hg] Anjel Older CYBER INCIDENT ANALYST.PHOTOGRAPHIC TECHNICIAN Work Phone: [facility] 01-28-2022 10:57-0400 Body weight 68.49 kg Anjel Older CYBER INCIDENT ANALYST.PHOTOGRAPHIC TECHNICIAN Work Phone: [facility] 01-28-2022 10:57-0400 Respiratory rate 16 /min Anjel Braga CYBER INCIDENT ANALYST.PHOTOGRAPHIC TECHNICIAN Work Phone: [facility] 01-20-2022 13:23-0400 Diastolic blood pressure 102 mm[Hg] Ye Coello MD Work Phone: [facility] 01-20-2022 13:23-0400 Heart rate 61 /min Ye Coello MD Work Phone: [facility] 01-20-2022 13:23-0400 SaO2% (BldA) [Mass fraction] 94 % Ye Coello MD Work Phone: [facility] 01-20-2022 13:23-0400 Systolic blood pressure 172 mm[Hg] Ye Coello MD Work Phone: [facility] 01-14-2022 10:26-0400 Body temperature 98.2 [degF] Harriett Albert CYBER INCIDENT ANALYST.TRANSMISSION WORKER Work Phone: [facility] 01-14-2022 10:26-0400 Body weight 69.67 kg Harriett Albert CYBER INCIDENT ANALYST.TRANSMISSION WORKER Work Phone: [facility] 01-14-2022 10:26-0400 Diastolic blood pressure 80 mm[Hg] Harriett Albert CYBER INCIDENT ANALYST.TRANSMISSION WORKER Work Phone: [facility] 01-14-2022 10:26-0400 Heart rate 78 /min Harriett Albert CYBER INCIDENT ANALYST.TRANSMISSION WORKER Work Phone: [facility] 01-14-2022 10:26-0400 Respiratory rate 16 /min Harriett Albert CYBER INCIDENT ANALYST.TRANSMISSION WORKER Work Phone: [facility] 01-14-2022 10:26-0400 SaO2% (BldA) [Mass fraction] 95 % Harriett Albert CYBER INCIDENT ANALYST.TRANSMISSION WORKER Work Phone: [facility] 01-14-2022 10:26-0400 Systolic blood pressure 186 mm[Hg] Harriett Albert CYBER INCIDENT ANALYST.TRANSMISSION WORKER Work Phone: [facility] 11-30-2021 15:02-0400 Heart rate 75 /min Dr. Daija Morton Work Phone: [facility] Work Phone: 11-30-2021 15:02-0400 Respiratory rate 17 /min Dr. Daija Morton Work Phone: [facility] Work Phone: 11-30-2021 13:57-0400 Body temperature 97.4 [degF] Dr. Daija Morton Work Phone: [facility] Work Phone: 11-30-2021 13:57-0400 Diastolic blood pressure 67 mm[Hg] Dr. Daija Morton Work Phone: [facility] Work Phone: 11-30-2021 13:57-0400 SaO2% (BldA) [Mass fraction] 93 % Dr. Daija Morton Work Phone: [facility] Work Phone: 11-30-2021 13:57-0400 Systolic blood pressure 161 mm[Hg] Dr. Daija Morton Work Phone: [facility] Work Phone: 11-30-2021 11:25-0400 Inhaled oxygen flow rate 3 L/min Dr. Daija Morton Work Phone: [facility] Work Phone: 11-29-2021 12:48-0400 Body height 172.[address] Daija Morton Work Phone: [facility] Work Phone: 11-29-2021 12:48-0400 Body weight 71.[address] Daija Morton Work Phone: [facility] Work Phone: 11-27-2021 05:25-0400 Body mass index (BMI) [Ratio] 24 kg/m2 Dr. Daija Morton Work Phone: [facility] Work Phone: 11-25-2021 21:36-0400 Body temperature 97.8 [degF] Dr. Daija Morton Work Phone: [facility] Work Phone: 11-25-2021 21:36-0400 Diastolic blood pressure 40 mm[Hg] Dr. Daija Morton Work Phone: [facility] Work Phone: 11-25-2021 21:36-0400 Heart rate 66 /min Dr. Daija Morton Work Phone: [facility] Work Phone: 11-25-2021 21:36-0400 Respiratory rate 16 /min Dr. Daija Morton Work Phone: [facility] Work Phone: 11-25-2021 21:36-0400 SaO2% (BldA) [Mass fraction] 96 % Dr. Daija Morton Work Phone: [facility] Work Phone: 11-25-2021 21:36-0400 Systolic blood pressure 133 mm[Hg] Dr. Daija Morton Work Phone: [facility] Work Phone: 11-25-2021 17:29-0400 Body height 172.[address] Daija Morton Work Phone: [facility] Work Phone: 11-25-2021 17:29-0400 Body mass index (BMI) [Ratio] 24.7 kg/m2 Dr. Daija Morton Work Phone: [facility] Work Phone: 11-25-2021 17:29-0400 Body weight 73.[address] Daija Morton Work Phone: [facility] Work Phone: 11-16-2021 14:37-0400 Body height 172.7 cm Estephaniajuice Pierre CYBER INCIDENT ANALYST.PHOTOGRAPHIC TECHNICIAN Work Phone: [facility] 11-16-2021 14:37-0400 Body weight 71.67 kg Estephania Ignacio CYBER INCIDENT ANALYST.PHOTOGRAPHIC TECHNICIAN Work Phone: [facility] 11-16-2021 14:37-0400 Diastolic blood pressure 68 mm[Hg] Estephania Pierre CYBER INCIDENT ANALYST.PHOTOGRAPHIC TECHNICIAN Work Phone: [facility] 11-16-2021 14:37-0400 Heart rate 64 /min Estephaniajuice Pierre CYBER INCIDENT ANALYST.PHOTOGRAPHIC TECHNICIAN Work Phone: [facility] 11-16-2021 14:37-0400 SaO2% (BldA) [Mass fraction] 100 % Estephaniajuice Pierre CYBER INCIDENT ANALYST.PHOTOGRAPHIC TECHNICIAN Work Phone: [facility] 11-16-2021 14:37-0400 Systolic blood pressure 162 mm[Hg] Estephaniajuice Pierre CYBER INCIDENT ANALYST.PHOTOGRAPHIC TECHNICIAN Work Phone: [facility] 11-08-2021 12:50-0400 Heart rate 73 /min Respiratory Wstr Work Phone: [facility] 11-08-2021 12:50-0400 Respiratory rate 14 /min Respiratory Wstr Work Phone: [facility] 11-08-2021 12:50-0400 SaO2% (BldA) [Mass fraction] 97 % Respiratory Wstr Work Phone: [facility] 11-05-2021 11:22-0400 Body weight 70.31 kg Emilie Shania PA-C Work Phone: [facility] 11-05-2021 11:22-0400 Diastolic blood pressure 68 mm[Hg] Emilie Shania PA-C Work Phone: [facility] 11-05-2021 11:22-0400 Heart rate 71 /min Emilie Shania PA-C Work Phone: [facility] 11-05-2021 11:22-0400 Respiratory rate 20 /min Emilie Shania PA-C Work Phone: [facility] 11-05-2021 11:22-0400 SaO2% (BldA) [Mass fraction] 99 % Emilie Shania PA-C Work Phone: [facility] 11-05-2021 11:22-0400 Systolic blood pressure 140 mm[Hg] Emilie Shania PA-C Work Phone: [facility] 10-21-2021 11:30-0400 Diastolic blood pressure 65 mm[Hg] Mi Nurse Work Phone: [facility] 10-21-2021 11:30-0400 Heart rate 81 /min Mi Nurse Work Phone: [facility] 10-21-2021 11:30-0400 Systolic blood pressure 155 mm[Hg] Mi Nurse Work Phone: [facility] 10-13-2021 13:00-0400 Body height 172.7 cm Ye Coello MD Work Phone: [facility] 10-13-2021 13:00-0400 Body weight 71.67 kg Ye Coello MD Work Phone: [facility] 10-13-2021 13:00-0400 Diastolic blood pressure 93 mm[Hg] Ye Coello MD Work Phone: [facility] 10-13-2021 13:00-0400 Heart rate 66 /min Ye Coello MD Work Phone: [facility] 10-13-2021 13:00-0400 Systolic blood pressure 217 mm[Hg] Ye Coello MD Work Phone: [facility] 10-08-2021 17:14-0400 Diastolic blood pressure 62 mm[Hg] Dr. Daija Morton Work Phone: [facility] Work Phone: 10-08-2021 17:14-0400 Heart rate 58 /min Dr. Daija Morton Work Phone: [facility] Work Phone: 10-08-2021 17:14-0400 Respiratory rate 18 /min Dr. Daija Morton Work Phone: [facility] Work Phone: 10-08-2021 17:14-0400 SaO2% (BldA) [Mass fraction] 98 % Dr. Daija Morton Work Phone: [facility] Work Phone: 10-08-2021 17:14-0400 Systolic blood pressure 149 mm[Hg] Dr. Daija Morton Work Phone: [facility] Work Phone: 10-08-2021 14:12-0400 Body height 172.[address] Daija Morton Work Phone: [facility] Work Phone: 10-08-2021 14:12-0400 Body mass index (BMI) [Ratio] 24.7 kg/m2 Dr. Daija Morton Work Phone: [facility] Work Phone: 10-08-2021 14:12-0400 Body temperature 98.1 [degF] Dr. Daija Morton Work Phone: [facility] Work Phone: 10-08-2021 14:12-0400 Body weight 73.[address] Daija Morton Work Phone: [facility] Work Phone: 10-07-2021 11:17-0400 Body temperature 97.59 [degF] Anjel Older CYBER INCIDENT ANALYST.PHOTOGRAPHIC TECHNICIAN Work Phone: [facility] 10-07-2021 11:17-0400 Body weight 70.31 kg Anjel Older CYBER INCIDENT ANALYST.PHOTOGRAPHIC TECHNICIAN Work Phone: [facility] 10-07-2021 11:17-0400 Diastolic blood pressure 90 mm[Hg] Anjel Older CYBER INCIDENT ANALYST.PHOTOGRAPHIC TECHNICIAN Work Phone: [facility] 10-07-2021 11:17-0400 Heart rate 67 /min Anjel Older CYBER INCIDENT ANALYST.PHOTOGRAPHIC TECHNICIAN Work Phone: [facility] 10-07-2021 11:17-0400 Respiratory rate 12 /min Anjel Older CYBER INCIDENT ANALYST.PHOTOGRAPHIC TECHNICIAN Work Phone: [facility] 10-07-2021 11:17-0400 SaO2% (BldA) [Mass fraction] 96 % Anjel Older CYBER INCIDENT ANALYST.PHOTOGRAPHIC TECHNICIAN Work Phone: [facility] 10-07-2021 11:17-0400 Systolic blood pressure 178 mm[Hg] Anjel Older CYBER INCIDENT ANALYST.PHOTOGRAPHIC TECHNICIAN Work Phone: [facility] 09-29-2021 16:20-0400 Body temperature 98.24 [degF] DR PRIYANKA FRANCO MD [facility] 09-29-2021 16:20-0400 Diastolic blood pressure 91 mm[Hg] DR PRIYANKA FRANCO MD [facility] 09-29-2021 16:20-0400 Heart rate 80 /min DR PRIYANKA FRANCO MD [facility] 09-29-2021 16:20-0400 Respiratory rate 18 /min DR PRIYANKA FRANCO MD [facility] 09-29-2021 16:20-0400 Systolic blood pressure 189 mm[Hg] DR PRIYANKA FRANCO MD [facility] 09-17-2021 20:16-0400 Body temperature 97.3 [degF] Dr. Daija Morton Work Phone: [facility] Work Phone: 09-17-2021 20:16-0400 Diastolic blood pressure 80 mm[Hg] Dr. Daija Morton Work Phone: [facility] Work Phone: 09-17-2021 20:16-0400 Heart rate 85 /min Dr. Daija Morton Work Phone: [facility] Work Phone: 09-17-2021 20:16-0400 Respiratory rate 17 /min Dr. Daija Morton Work Phone: [facility] Work Phone: 09-17-2021 20:16-0400 SaO2% (BldA) [Mass fraction] 96 % Dr. Daija Morton Work Phone: [facility] Work Phone: 09-17-2021 20:16-0400 Systolic blood pressure 171 mm[Hg] Dr. Daija Morton Work Phone: [facility] Work Phone: 09-17-2021 16:56-0400 Body height 172.[address] Daija Morton Work Phone: [facility] Work Phone: 09-17-2021 16:56-0400 Body mass index (BMI) [Ratio] 23.7 kg/m2 Dr. Daija Morton Work Phone: [facility] Work Phone: 09-17-2021 16:56-0400 Body weight 70.[address] Daija Morton Work Phone: [facility] Work Phone: 09-15-2021 17:40-0400 Diastolic blood pressure 73 mm[Hg] Anjel Older CYBER INCIDENT ANALYST.PHOTOGRAPHIC TECHNICIAN Work Phone: [facility] 09-15-2021 17:40-0400 Systolic blood pressure 170 mm[Hg] Anjel Older CYBER INCIDENT ANALYST.PHOTOGRAPHIC TECHNICIAN Work Phone: [facility] 09-15-2021 16:57-0400 Body weight 71.22 kg Anjel Older CYBER INCIDENT ANALYST.PHOTOGRAPHIC TECHNICIAN Work Phone: [facility] 09-15-2021 16:57-0400 Heart rate 68 /min Anjel Older CYBER INCIDENT ANALYST.PHOTOGRAPHIC TECHNICIAN Work Phone: [facility] 09-15-2021 16:57-0400 Respiratory rate 16 /min Anjel Older CYBER INCIDENT ANALYST.PHOTOGRAPHIC TECHNICIAN Work Phone: [facility] 09-15-2021 16:18-0400 Body height 172.7 cm Kaye Ortega MD Work Phone: [facility] 09-15-2021 16:18-0400 Body temperature 97.39 [degF] Kaye Ortega MD Work Phone: [facility] 09-15-2021 16:18-0400 Body weight 71.67 kg Kaye Ortega MD Work Phone: [facility] 09-15-2021 16:18-0400 Diastolic blood pressure 72 mm[Hg] Kaye Ortega MD Work Phone: [facility] 09-15-2021 16:18-0400 Heart rate 78 /min Kaye Ortega MD Work Phone: [facility] 09-15-2021 16:18-0400 SaO2% (BldA) [Mass fraction] 96 % Kaye Ortega MD Work Phone: [facility] 09-15-2021 16:18-0400 Systolic blood pressure 138 mm[Hg] Kaye Ortega MD Work Phone: [facility] 08-21-2021 09:30-0500 Body temperature 97.6 [degF] Dr. Daija Morton Work Phone: [facility] Work Phone: 08-21-2021 09:30-0500 Diastolic blood pressure 69 mm[Hg] Dr. Daija Morton Work Phone: [facility] Work Phone: 08-21-2021 09:30-0500 Heart rate 61 /min Dr. Daija Morton Work Phone: [facility] Work Phone: 08-21-2021 09:30-0500 Inhaled oxygen flow rate 3 L/min Dr. Daija Morton Work Phone: [facility] Work Phone: 08-21-2021 09:30-0500 Respiratory rate 18 /min Dr. Daija Morton Work Phone: [facility] Work Phone: 08-21-2021 09:30-0500 SaO2% (BldA) [Mass fraction] 98 % Dr. Daija Morton Work Phone: [facility] Work Phone: 08-21-2021 09:30-0500 Systolic blood pressure 183 mm[Hg] Dr. Daija Morton Work Phone: [facility] Work Phone: 08-21-2021 08:30-0500 Body temperature 97.6 [degF] Dr. Daija Morton Work Phone: [facility] Work Phone: 08-21-2021 08:30-0500 Diastolic blood pressure 69 mm[Hg] Dr. Daija Morton Work Phone: [facility] Work Phone: 08-21-2021 08:30-0500 Heart rate 61 /min Dr. Daija Morton Work Phone: [facility] Work Phone: 08-21-2021 08:30-0500 Respiratory rate 18 /min Dr. Daija Morton Work Phone: [facility] Work Phone: 08-21-2021 08:30-0500 SaO2% (BldA) [Mass fraction] 98 % Dr. Daija Morton Work Phone: [facility] Work Phone: 08-21-2021 08:30-0500 Systolic blood pressure 183 mm[Hg] Dr. Daija Morton Work Phone: [facility] Work Phone: 08-20-2021 06:18-0500 Body mass index (BMI) [Ratio] 23.7 kg/m2 Dr. Daija Morton Work Phone: [facility] Work Phone: 08-20-2021 06:18-0500 Body weight [address] Daija Morton Work Phone: [facility] Work Phone: 08-20-2021 05:18-0500 Body mass index (BMI) [Ratio] 23.7 kg/m2 Dr. Dajia Morton Work Phone: [facility] Work Phone: 08-20-2021 05:18-0500 Body weight [address] Daija Morton Work Phone: [facility] Work Phone: 08-12-2021 03:26-0500 Diastolic blood pressure 89 mm[Hg] Dr. Daija Morton Work Phone: [facility] Work Phone: 08-12-2021 03:26-0500 Heart rate 70 /min Dr. Daija Morton Work Phone: [facility] Work Phone: 08-12-2021 03:26-0500 Respiratory rate 18 /min Dr. Daija Morton Work Phone: [facility] Work Phone: 08-12-2021 03:26-0500 SaO2% (BldA) [Mass fraction] 93 % Dr. Daija Morton Work Phone: [facility] Work Phone: 08-12-2021 03:26-0500 Systolic blood pressure 211 mm[Hg] Dr. Daija Morton Work Phone: [facility] Work Phone: 08-11-2021 23:32-0500 Body mass index (BMI) [Ratio] 24.8 kg/m2 Dr. Daija Morton Work Phone: [facility] Work Phone: 08-11-2021 23:32-0500 Body temperature 97.5 [degF] Dr. Daija Morton Work Phone: [facility] Work Phone: 08-11-2021 23:32-0500 Body weight 74.[address] Daija Morton Work Phone: [facility] Work Phone: 06-12-2021 15:55-0500 Diastolic blood pressure 81 mm[Hg] Dr. Daija Morton Work Phone: [facility] Work Phone: 06-12-2021 15:55-0500 Heart rate 61 /min Dr. Daija Morton Work Phone: [facility] Work Phone: 06-12-2021 15:55-0500 Systolic blood pressure 182 mm[Hg] Dr. Daija Morton Work Phone: [facility] Work Phone: 06-12-2021 15:15-0500 Body mass index (BMI) [Ratio] 24.6 kg/m2 Dr. Daija Morton Work Phone: [facility] Work Phone: 06-12-2021 15:15-0500 Body temperature 96.8 [degF] Dr. Daija Morton Work Phone: [facility] Work Phone: 06-12-2021 15:15-0500 Body weight 73.[address] Daija Morton Work Phone: [facility] Work Phone: 06-12-2021 15:15-0500 Respiratory rate 18 /min Dr. Daija Morton Work Phone: [facility] Work Phone: 06-12-2021 15:15-0500 SaO2% (BldA) [Mass fraction] 96 % Dr. Daija Morton Work Phone: [facility] Work Phone: 06-04-2021 23:37-0500 Respiratory rate 18 /min Dr. Daija Morton Work Phone: [facility] Work Phone: 06-04-2021 22:01-0500 Body mass index (BMI) [Ratio] 23.6 kg/m2 Dr. Daija Morton Work Phone: [facility] Work Phone: 06-04-2021 22:01-0500 Body temperature 97.1 [degF] Dr. Daija Morton Work Phone: [facility] Work Phone: 06-04-2021 22:01-0500 Body weight 70.[address] Daija Morton Work Phone: [facility] Work Phone: 06-04-2021 22:01-0500 Diastolic blood pressure 99 mm[Hg] Dr. Daija Morton Work Phone: [facility] Work Phone: 06-04-2021 22:01-0500 Heart rate 87 /min Dr. Daija Morton Work Phone: [facility] Work Phone: 06-04-2021 22:01-0500 SaO2% (BldA) [Mass fraction] 97 % Dr. Daija Morton Work Phone: [facility] Work Phone: 06-04-2021 22:01-0500 Systolic blood pressure 202 mm[Hg] Dr. Daija Morton Work Phone: [facility] Work Phone: Encounters Encounter Date Encounter Type Care Provider Facility Start: 03-18-2025 End: 03-18-2025 Emergency department patient visit MAGDALENE POWELL DO [facility] Start: 03-14-2025 End: 03-14-2025 ambulatory Efewongbe Oleghe Facility:[facility] Start: 03-14-2025 End: 03-14-2025 Emergency department patient visit Efroeongbe Suzye Facility:[facility] Start: 03-13-2025 End: 03-13-2025 ambulatory Josefa Doss [employer] Facility[place] Start: 03-11-2025 ambulatory Efewongbe Oleghe OLS Fa cility:[facility] Start: 03-04-2025 ambulatory Efewongbe Oleghe Facili ty:[facility] Start: 02-25-2025 ambulatory Efewongbe Oleghe OLS Fa cility:[facility] Start: 02-24-2025 End: 02-24-2025 ambulatory Josefa Doss [employer]ER Facility:[facility] Start: 02-18-2025 ambulatory Efewongbe Oleghe OLS Fa cility:[facility] Start: 02-18-2025 Lorraine Ashton - [place] Start: 02-11-2025 ambulatory Efewongbe Oleghe OLS Fa cility:[facility] Start: 02-11-2025 Lorraine Ashton - [place] Start: 02-09-2025 ambulatory Efewongbe Oleghe OLS Fa cility:[facility] Start: 02-09-2025 Lorraine Ashton - [place] Start: 02-04-2025 End: 02-04-[address] Daija Morton MD Work Phone: -[facility] Start: 02-04-2025 End: 02-04-2025 Josefa Doss [employer]ING CLOSER-C -[facility] Work Phone: Start: 02-03-2025 ambulatory Efewongbe Oleghe OLS Fa cility:[facility] Start: 02-03-2025 Lorraine Johns Start: 01-27-2025 ambulatory Efml Mena OLS Fa cility:[facility] Start: 01-27-2025 Lorraine Johns Start: 01-23-2025 End: 01-23-2025 Hannah Busch FOXING CLOSERAshtyn -[facility] Work Phone: Start: 01-23-2025 End: 01-23-[address] Daija Morton MD Work Phone: -[facility] Start: 01-21-2025 End: 01-21-2025 Mackenzie SALDIVAR -[facility] Work Phone: Start: 01-21-2025 End: 01-21-[address] Daija Morton MD Work Phone: -[facility] Start: 01-20-2025 ambulatory Lorraine RAIN Fa cility:[facility] Start: 01-20-2025 Lorraine Johns Start: 01-17-2025 End: 01-17-2025 Refill Daija Morton MD Work Phone: [facility] [place] Comment on above: Refill Request Start: 01-13-2025 ambulatory Lorraine RAIN Fa cility:[facility] Start: 01-13-2025 Lorraine Johns Start: 01-09-2025 End: 01-09-[address] Daija Morton MD Work Phone: -[facility] Start: 01-09-2025 End: 01-09-2025 Josefa CORTEZ -[facility] Work Phone: Start: 01-08-2025 [facility] Work [facility]: Start: 01-07-2025 Dr. [facility] Work Phone: Start: 01-07-2025 Paulino Portland DO -[facility] Start: 01-06-2025 ambulatory Lorraine Mena Facili ty:[facility] Start: 01-06-2025 Paulino Friend DO -[facility] Start: 01-05-2025 End: 01-05-2025 ambulatory Efml Almontee Facility:[facility] Start: 01-05-2025 End: 01-05-2025 Dr. Geronimo Downey MD -[place] Work Phone: Start: 01-05-2025 Paulino Portland DO -[facility] Start: 01-05-2025 End: 01-08-2025 ambulatory [...] Dr. Daija Morton MD Work Phone: -[facility] Start: 12-31-2024 End: 12-31-2024 Dr. Lorraine Mena MD -[facility] Work Phone: Start: 12-31-2024 ambulatory Lorraine Mena OLS Fa cility:[facility] Start: 12-31-2024 Lorraine Mena MD [facility] Start: 12-30-2024 ambulatory Lorraine Mena OLS Fa cility:[facility] Start: 12-30-2024 Lorraine Mena MD -[facility] [place] Start: 12-27-2024 End: 12-27-[address] Daija Morton MD Work Phone: -[facility] Start: 12-27-2024 End: 12-27-2024 Josefa Doss [employer]ING CLOSER-C -[facility] Work Phone: Start: 12-26-2024 End: 12-26-2024 Follow-up encounter Anjel Omi YANGN.PHOTOGRAPHIC TECHNICIAN Work Phone: [facility] [place] Start: 12-26-2024 Dr. Shilpa edwards MD -[facility] Work Phone: Start: 12-25-2024 Dr. Shilpa edwards MD -[facility] Work Phone: Start: 12-24-[address] [facility] Start: 12-24-2024 Dr. Shilpa edwards MD -[facility] Work Phone: Start: 12-23-2024 Paulino [facility] Start: 12-23-2024 [facility] Start: 12-23-2024 Dr. Raul Jensen MD -[facility] Start: 12-23-2024 Dr. Shilpa edwards MD -[place] [facility] Physicians Work Phone: Start: 12-22-2024 Dr. Lisha Talamantes DO -[facility] Work Phone: Start: 12-21-2024 Dr. Lisha Talamantes DO [facility] Work Phone: Start: 12-20-2024 Dr. Lisha Talamantes DO [facility] Work Phone: Start: 12-19-2024 Dr. Lisha Talamantes DO [facility] Work Phone: Start: 12-18-2024 ambulatory [facility] Facility:[facility] Start: 12-18-2024 End: 12-26-2024 Evaluation and management of inpatient Dr. Daija Morton MD Work Phone: -Progressive Care Unit Start: 12-18-2024 End: 12-26-2024 Dr. Shilpa Contreras MD -Progressive Care Unit Work Phone: Start: 12-18-2024 ambulatory Milton Guajardo Facility:[facility] Start: 12-18-2024 Dr. Milton Guajardo MD -[facility] Start: 12-17-[address] Germain Morton MD Work Phone: -Progressive Care Unit Start: 12-17-2024 Dr. Roman Patel DO -Progressive Care Unit Work Phone: Start: 12-17-2024 End: 12-20-2024 ambulatory Daija Morton MD Work Phone: Internal Medicine [place] [phone] Start: 12-17-2024 End: 12-24-2024 Telephone encounter Daija Morton MD Work Phone: Internal Medicine [place] Comment on above: Patient Update Start: 12-16-2024 End: 12-17-2024 Refill Daija Morton MD Work Phone: Internal Medicine [place] Comment on above: Refill Request SOB (shortness of br eath) (Primary Dx) Start: 12-16-2024 Dr. Lisha Talamantes DO [facility] Work Phone: Start: 12-15-2024 Dr. Lisha Talamantes DO [facility] Work Phone: Start: 12-14-2024 Dr. Lisha Talamantes DO [facility] Work Phone: Start: 12-13-2024 Non-patient / Non-visit Dr. Kisha Contreras MD -[place] [facility] Work Phone: Start: 12-13-2024 End: [...] 12-12-2024 Subsequent hospital visit by physician Xr [facility] [place] Work Phone: Radiology Comment on above: Wheezing [R06.2] Start: 12-12-2024 End: 12-12-2024 ambulatory [facility] Facility:[facility] Start: 12-12-2024 End: 12-12-2024 Office outpatient visit 25 minutes Anjel Braga APRN.CNP Work Phone: Internal Medicine [place] Comment on above: Other emphysema (HCC ) (Primary Dx); Smoker; Wheezing; Lower abdominal tenderness; Loose stools; On home oxygen therapy; Primary hypertension; Left leg pain; Falls; Weakness Start: 12-12-2024 End: 12-12-2024 ambulatory [facility] Facility:[facility] Start: 12-09-2024 End: 12-09-2024 Telephone encounter Daija Morton MD Work Phone: Internal Medicine [place] Comment on above: Home Care Management ; Patient Update Start: 12-06-2024 End: 12-06-2024 Telephone encounter Daija Morton MD Work Phone: Internal Medicine [place] Comment on above: [facility] update Start: 12-03-2024 End: 12-04-2024 Telephone encounter Daija Morton MD Work Phone: Internal Medicine [place] Comment on above: Home Health Orders Start: 12-02-2024 ambulatory [facility] Facility:[facility] Start: 12-02-[address] Carla Crane MD -[facility] Start: 12-02-2024 Dr. Carla Crane MD -[facility] Start: 11-05-2024 End: 11-05-[address] Daija Morton MD Work Phone: [facility] Work Phone: Start: 11-05-2024 End: 11-05-[address] Carla Crane MD -[facility] Start: 11-05-2024 End: 11-05-2024 Dr. Carla Crane MD -[facility] Start: 11-05-2024 End: 11-05-2024 ambulatory Carla RAIN Facility:[facility] Start: 10-16-2024 ambulatory Carla RAIN Facili ty:[facility] Start: 10-16-[address] Carla Crane MD [facility] Start: 10-16-2024 Dr. Carla Crane MD [facility] Start: 09-02-2024 Non-patient / Non-visit Dr. Brody Maynard MD [facility] Inpatient Physicians Work Phone: Start: 09-02-2024 Dr. Brody Maynard MD [facility]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 scan of gallbladder Dr. Daija Morton Work Phone: Start: 09-16-2021 PROTHROMBIN TIME/PT [facility] Provider Start: 09-15-2021 Urnls dip stick/tablet rgnt auto w/o microscopy Anjel Older CYBER INCIDENT ANALYST.PHOTOGRAPHIC TECHNICIAN Work Phone: Start: 08-20-2021 Computerized tomography guidance [...] on above: Performed By: #### TSCR ####[place] [id number] Start: 10-17-2019 Antibody screen Comment on above: Performed By: #### TSCR ####[place] [id number] Start: 10-08-2019 Electrocardiogram Start: 10-08-2019 Antibody screen Comment on above: Performed By: #### TSCR ####[place] [id number] Start: 09-12-2019 Antibody screen Comment on above: Performed By: #### [id number] #### Ivan[place] [id number] Start: 03-19-2019 Lipid 1996 panel - Serum or Plasma Anjel pantoja APRN.PHOTOGRAPHIC TECHNICIAN Work Phone: Start: 06-25-[address] PRIYANKA FRANCO MD Start: 10-17-2016 Colonoscopy Lizette Ulloa RN Work Phone: Measurement of occul t blood in stool specimen using immunoassay Dr. Daija Morton Work Phone: Stent, device (physical object) DR PRIYANKA FRANOC MD Comment on above: in legs Urine culture Dr. Daija pressley Work Phone: Viral antigen assay Dr. Germain Morton Work Phone: Plan of Treatment Date Care Activity Detail Author Start: 06-04-2031 Urine microalbumin profile [place] [facility] Start: 12-13-2027 Diabetes Screening Diabetes Screening [facility] Start: 11-27-2026 Colonoscopy COLONOSCOPY [facility] Start: 11-27-2026 COLORECTAL CANCER SCREENING COLORECTAL CANCER SCREENING [facility] Start: 11-27-2026 Screening for malignant neoplasm of colon [facility] Start: 12-12-2025 Annual PCP Team Chronic Disease Visit Annual PCP Team Chronic Disease Visit [facility] Start: 02-17-2025 Influenza vaccination [facility] Start: 02-04-2025 DIABETES SCREEN DIABETES SCREEN [facility] Start: 02-04-2025 Diabetes Screening Diabetes Screening [facility] Start: 01-08-2025 Patient discharge [facility] Start: 01-08-2025 [facility] Start: 01-07-2025 Referral to occupational therapist [facility] Start: 01-07-2025 Referral to service [facility] Start: 01-05-2025 Contact precautions [facility] Start: 01-05-2025 Referral to gastroenterology service [facility] Start: 01-05-2025 Following clinical pathway protocol [facility] Start: 01-05-2025 Ambulation without limitation [facility] Start: 01-05-2025 Assessment of risk of venous thromboembolism [facility] Start: 01-05-2025 Elevation of head of bed [facility] Start: 01-05-2025 Inhalation therapy procedure [facility] Start: 01-05-2025 Insertion of catheter into peripheral vein [facility] Start: 01-05-2025 Measuring intake and output [facility] Start: 01-05-2025 Oxygen therapy [facility] Start: 01-05-2025 Patient education [facility] Start: 01-05-2025 Providing care according to standard [facility] Start: 01-05-2025 End: 01-05-2025 [facility] Start: 01-05-2025 Blood culture [facility] Start: 01-05-2025 Bacteria identified in Sputum by Culture [facility] Start: 01-05-2025 Legionella pneumophila Ag [Presence] in Urine [facility] Start: 01-05-2025 Streptococcus pneumoniae antigen assay [facility] Start: 01-05-2025 Verification routine [facility] Start: 01-05-2025 Hospital admission, emergency, from emergency room, medical nature [facility] Start: 01-05-2025 Admission procedure [facility] Start: 01-05-2025 Patient referral to dietitian [facility] Start: 01-05-2025 [facility] Start: 01-03-2025 Emergency dept visit high severity&threat funcj [facility] Start: 01-03-2025 [facility] Start: 01-01-2025 End: 01-01-2025 Patient encounter procedure 01/01/2025 2:00 PM EDT Office Visit [facility] [place] [address] [place] [address] Anjel Braga APRN.[facility] [address], [place] [id number] 2 week follow up [facility] [place] Comment on above: 2 week follow up Start: 12-26-2024 Patient discharge [facility] Start: 12-26-2024 Care planning and problem solving actions [facility] Start: 12-25-2024 End: 12-25-2024 Patient encounter procedure 12/25/2024 1:00 PM EDT Office Visit Pulmonary Medicine [address] [id number] Priscilla Barillas MD [address] [place] [address] Other emphysema (HCC) [J43.8]; Smoker [F17.200] Pulmonary Medicine Comment on above: Other emphysema (HCC) [J43.8]; Smoker [F 17.200] Start: 12-25-2024 End: 12-25-2024 ambulatory Pulmonary Medicine Comment on above: Other emphysema (HCC) [J43.8]; Smoker [F 17.200] * Other emphysema (H CC) [J43.8]; Smoker [F17.200] Start: 12-22-2024 [facility] Start: 12-22-2024 Electroencephalogram [facility] Start: 12-19-2024 Referral to gastroenterology service [facility] Start: 12-18-2024 Admission procedure [facility] Start: 12-18-2024 Contact precautions [facility] Start: 12-18-2024 Inhalation therapy procedure [facility] Start: 12-17-2024 Following clinical pathway protocol [facility] Start: 12-17-2024 Application of intermittent pneumatic compression device [facility] Start: 12-17-2024 Aspiration precautions [facility] Start: 12-17-2024 Assessment of risk of venous thromboembolism [facility] Start: 12-17-2024 Cardiac monitoring [facility] Start: 12-17-2024 Catheterization of vein [facility] Start: 12-17-2024 Consultation [facility] Start: 12-17-2024 Elevation of head of bed [facility] Start: 12-17-2024 Exercises [facility] Start: 12-17-2024 Insertion of catheter into peripheral vein [facility] Start: 12-17-[address] [facility] Start: 12-17-2024 Oxygen therapy [facility] Start: 12-17-2024 Patient referral to dietitian [facility] Start: 12-17-2024 Providing care according to standard [facility] Start: 12-17-2024 Referral to occupational therapist [facility] Start: 12-17-2024 Referral to service [facility] Start: 12-17-[address] [facility] Start: 12-17-2024 Tobacco use cessation education [facility] Start: 12-17-2024 Vital signs measurements [facility] Start: 12-17-2024 End: 12-17-2024 [facility] Start: 12-17-2024 MRI of brain without contrast [facility] Start: 12-17-2024 Verification routine [facility] Start: 12-17-2024 Admission procedure [facility] Start: 12-17-2024 Hospital admission, emergency, from emergency room, medical nature [facility] Start: 12-17-2024 Partial thromboplastin time, activated [facility] Start: 12-17-2024 Prothrombin time [facility] Start: 12-17-2024 Thyroid stimulating hormone measurement [facility] Start: 12-17-2024 Oxygen therapy [facility] Start: 12-17-2024 End: 12-18-2024 [facility] Start: 12-17-2024 End: 03-18-2025 Hemoglobin A1c in Blood HEMOGLOBIN A1C Lab Routine Medication management Expected: 12/17/2024, Expires: 03/18/2025 [facility] Work Phone: Comment on above: Expected: 12/17/2024, Expires: Start: 12-17-2024 End: 03-18-2025 Lipid 1996 panel - Serum or Plasma LIPID PANEL, FASTING Lab Routine Hyperlipidemia Expected: 12/17/2024, Expires: 03/18/2025 [facility] Comment on above: Expected: 12/17/2024, Expires: Start: 12-17-2024 Consultation [facility] Start: 12-16-2024 Referral to service [facility] Start: 12-16-2024 Patient discharge [facility] Start: 12-14-2024 Referral to occupational therapist [facility] Start: 12-14-2024 Referral to service [facility] Start: 12-13-2024 Contact precautions [facility] Start: 12-13-2024 Following clinical pathway protocol [facility] Start: 12-13-2024 Assessment of risk of venous thromboembolism [facility] Start: 12-13-[address] [facility] Start: 12-13-2024 Inhalation therapy procedure [facility] Start: 12-13-2024 Insertion of catheter into peripheral vein [facility] Start: 12-13-2024 Introduction of urinary catheter [facility] Start: 12-13-2024 Measuring intake and output [facility] Start: 12-13-2024 Oxygen therapy [facility] Start: 12-13-2024 Providing care according to standard [facility] Start: 12-13-2024 Provision of activity privileges [facility] Start: 12-13-2024 Tobacco use cessation education [facility] Start: 12-13-2024 End: 12-13-2024 [facility] Start: 12-13-2024 Dual pressure spontaneous ventilation support [facility] Start: 12-13-2024 Verification routine [facility] Start: 12-13-2024 Admission procedure [facility] Start: 12-13-2024 Hospital admission, emergency, from emergency room, medical nature [facility] Start: 12-13-2024 [facility] Start: 12-13-2024 Bacteria identified in Blood by Culture Blood Culture [facility] Start: 12-13-2024 Blood culture [facility] Start: 12-13-2024 Respiratory Panel (PCR) Respiratory Panel (PCR) [facility] Start: 12-13-2024 Consultation [facility] Start: 12-13-2024 Patient referral to dietitian [facility] Start: 12-12-2024 End: 03-13-2025 Comprehensive metabolic 2000 panel - Serum or Plasma [facility] Comment on above: Expected: 12/12/2024, Expires: Start: 12-12-2024 End: 03-13-2025 Urinalysis complete panel - Urine [facility] Work Phone: Comment on above: Expected: 12/12/2024, Expires: Start: 12-12-2024 End: 12-12-2024 [facility] [place] Comment on above: Discharge from Nursing facility - Follow up Discharge from [facility] facility -see phone note 12/09 Start: 11-20-2024 Annual PCP Team Chronic Disease Visit Annual PCP Team Chronic Disease Visit [facility] Start: 09-03-2024 DIABETES SCREEN DIABETES SCREEN [facility] Start: 09-02-2024 Patient discharge [facility] Start: 09-01-2024 [facility] Start: 08-30-2024 Incentive spirometry [facility] Start: 08-29-2024 Consultation [facility] Start: 08-29-2024 Contact precautions [facility] Start: 08-27-2024 Application of intermittent pneumatic compression device [facility] Start: 08-27-2024 Admission procedure [facility] Start: 08-27-2024 Urine culture Urine Culture [facility] Start: 08-27-2024 [facility] Start: 08-27-2024 Oxygen therapy [facility] Start: 08-25-2024 Following clinical pathway protocol [facility] Start: 08-25-2024 Assessment of risk of venous thromboembolism [facility] Start: 08-25-2024 Inhalation therapy procedure [facility] Start: 08-25-2024 Insertion of catheter into peripheral vein [facility] Start: 08-25-2024 Measuring intake and output [facility] Start: 08-25-2024 Patient referral to dietitian [facility] Start: 08-25-2024 Providing care according to standard [facility] Start: 08-25-2024 Provision of activity privileges [facility] Start: 08-25-2024 Referral to occupational therapist [facility] Start: 08-25-2024 Referral to service [facility] Start: 08-25-2024 [facility] Start: 08-25-2024 Verification routine [facility] Start: 08-25-2024 Hospital admission, emergency, from emergency room, medical nature [facility] Start: 08-25-2024 Admission procedure [facility] Start: 08-25-2024 Enteric precautions [facility] Start: 08-25-2024 End: 08-26-2024 [facility] Start: 08-25-2024 Consultation [facility] Start: 06-19-2024 Advance Directive Discussion Advance Directive Discussion [facility] Start: 06-19-2024 Medicare Advantage Annual Wellness Visit Medicare Advantage Annual Wellness Visit [facility] Start: 06-08-2024 Annual PCP Team Chronic Disease Visit Annual PCP Team Chronic Disease Visit [facility] Start: 06-08-2024 BP Controlled (<130/80) BP Controlled (<130/80) [facility] Start: 2024 RSV Vaccine (1 - 1-dose 75+ series) RSV Vaccine (1 - 1-dose 75+ series) [facility] Start: 03-19-2024 Lipid 1996 panel - Serum or Plasma Lipid Screening [facility] Start: 03-19-2024 Lipid panel Lipid Screening [facility] Start: 03-19-2024 LIPID SCREEN LIPID SCREEN [facility] Start: 02-18-2024 Covid-19 Vaccine ( season) Covid-19 Vaccine ( season) [facility] Start: 02-18-2024 Influenza vaccination Influenza Vaccine (#1) [facility] Start: 01-02-2024 End: 01-02-2024 Patient encounter procedure [facility] Comment on above: PVD FOLLOW UP Start: 01-01-2024 End: 01-01-2024 Patient encounter procedure 01/01/2024 9:20 AM EDT Office Visit [facility] [place] [address] [place] [address] Daija Morton MD [address] [place] [address] 4-6 wk follow up [facility] [place] Comment on above: 4-6 wk follow up Start: 11-21-2023 End: 02-20-2024 CBC W Auto Differential panel - Blood COMPLETE BLOOD COUNT AND DIFFERENTIAL Lab Routine COPD with chronic bronchitis (HCC) Expected: 11/21/2023, Expires: 02/20/2024 [facility] Comment on above: Expected: 11/21/2023, Expires: Start: 11-21-2023 End: 02-20-2024 Comprehensive metabolic 2000 panel - Serum or Plasma COMPREHENSIVE METABOLIC PANEL Lab Routine Mixed hyperlipidemia Expected: 11/21/2023, Expires: 02/20/2024 [facility] Comment on above: Expected: 11/21/2023, Expires: Start: 11-21-2023 End: 02-20-2024 Hemoglobin A1c in Blood HEMOGLOBIN A1C Lab Routine Mixed hyperlipidemia Expected: 11/21/2023, Expires: 02/20/2024 [facility] Work Phone: Comment on above: Expected: 11/21/2023, Expires: Start: 11-21-2023 End: 02-20-2024 Lipid 1996 panel - Serum or Plasma LIPID PANEL BASIC Lab Routine Mixed hyperlipidemia Expected: 11/21/2023, Expires: 02/20/2024 [facility] Comment on above: Expected: 11/21/2023, Expires: Start: 11-21-2023 End: 11-21-2023 Patient encounter procedure [facility] Comment on above: hospital discharge/ assisted fractur e of pelvic hospital discharge/ assisted fracture of pelvic(See phone encounter) Start: 11-21-2023 End: 11-21-2023 Patient encounter procedure 11/21/2023 9:40 AM EDT Office Visit [facility] [address] [place] [address] Rebekah Luu PA-C [address] [place] [address] follow up jail / copd [facility] Comment on above: follow up jail / copd Start: 08-28-2023 ANNUAL PCP TEAM CHRONIC DISEASE VISIT ANNUAL PCP TEAM CHRONIC DISEASE VISIT [facility] Start: 08-02-2023 Patient discharge [facility] Start: 08-01-2023 Referral to occupational therapist [facility] Start: 08-01-2023 Referral to service [facility] Start: 07-31-[address] [facility] Start: 07-31-2023 Oxygen therapy [facility] Start: 07-31-2023 Respiratory secretion precautions [facility] Start: 07-31-2023 Following clinical pathway protocol [facility] Start: 07-31-[address] [facility] Start: 07-31-2023 Physiotherapy of chest [facility] Start: 07-31-2023 Hospital admission, emergency, from emergency room, medical nature [facility] Start: 07-31-2023 Inhalation therapy procedure [facility] Start: 07-30-2023 Dual pressure spontaneous ventilation support [facility] Start: 07-30-2023 Admission procedure [facility] Start: 07-30-2023 [facility] Start: 07-26-2023 Patient discharge [facility] Start: 07-25-2023 Referral to occupational therapist [facility] Start: 07-25-2023 Referral to service [facility] Start: 07-25-2023 Inhalation therapy procedure [facility] Start: 07-24-2023 Following clinical pathway protocol [facility] Start: 07-24-2023 Assessment of risk of venous thromboembolism [facility] Start: 07-24-2023 Insertion of catheter into peripheral vein [facility] Start: 07-24-2023 Oxygen therapy [facility] Start: 07-24-2023 Providing care according to standard [facility] Start: 07-24-2023 Referral to service [facility] Start: 07-24-2023 [facility] Start: 07-24-2023 Verification routine [facility] Start: 07-24-2023 Admission procedure [facility] Start: 07-24-2023 Hospital admission, emergency, from emergency room, medical nature [facility] Start: 07-24-2023 Consultation [facility] Start: 07-24-2023 Consultation [facility] Start: 07-24-2023 Patient referral to dietitian [facility] Start: 06-19-2023 Advance Directive Discussion Advance Directive Discussion [facility] Start: 04-04-2023 Patient discharge [facility] Start: 04-03-2023 Consultation [facility] Start: 04-02-2023 Contact precautions [facility] Start: 03-30-2023 End: 03-30-2023 Following clinical pathway protocol [facility] Start: 03-30-2023 Assessment of risk of venous thromboembolism [facility] Start: 03-30-2023 Catheterization [facility] vein [facility] Start: 03-30-2023 Inhalation therapy procedure [facility] Start: 03-30-2023 Insertion of catheter into peripheral vein [facility] Start: 03-30-2023 Oxygen therapy [facility] Start: 03-30-2023 Providing care according to standard [facility] Start: 03-30-2023 Provision of activity privileges [facility] Start: 03-30-2023 Referral to occupational therapist [facility] Start: 03-30-2023 Referral to service [facility] Start: 03-30-2023 End: 03-30-2023 [facility] Start: 03-30-2023 End: 03-30-2023 Blood culture [facility] Start: 03-30-2023 Verification routine [facility] Start: 03-30-2023 Hospital admission, emergency, from emergency room, medical nature [facility] Start: 03-30-2023 Admission procedure [facility] Start: 03-30-2023 Bacteria identified in Blood by Culture Blood Culture [facility] Start: 03-30-2023 Consultation [facility] Start: 03-30-2023 Inhalation therapy procedure [facility] Start: 03-29-2023 [facility] Start: 03-29-2023 Emergency department visit low/moder severity EMERGENCY DEPT VISIT [facility] Start: 03-10-2023 ANNUAL PCP TEAM CHRONIC DISEASE VISIT ANNUAL PCP TEAM CHRONIC DISEASE VISIT [facility] Start: 02-17-2023 Covid-19 Vaccine () Covid-19 Vaccine () [facility] Start: 02-17-2023 Influenza vaccination [facility] Start: 02-04-2023 ANNUAL PCP TEAM CHRONIC DISEASE VISIT ANNUAL PCP TEAM CHRONIC DISEASE VISIT [facility] Start: 01-28-2023 ANNUAL PCP TEAM CHRONIC DISEASE VISIT ANNUAL PCP TEAM CHRONIC DISEASE VISIT [facility] Start: 01-14-2023 SHINGRIX VACCINE (2 of 3) SHINGRIX VACCINE (2 of 3) [facility] Comment on above: Postponed from 11/19/2020 (Declined at t his time) Start: 01-03-2023 Urine microalbumin profile DTAP,TDAP,TD (2 - Td or Tdap) [facility] Start: 11-17-2022 ANNUAL PCP TEAM CHRONIC DISEASE VISIT ANNUAL PCP TEAM CHRONIC DISEASE VISIT [facility] Start: 10-26-2022 COVID-19 VACCINE (4 - Moderna series) COVID-19 VACCINE (4 - Moderna series) [facility] Start: 10-21-2022 [facility] Start: 10-07-2022 ANNUAL PCP TEAM CHRONIC DISEASE VISIT ANNUAL PCP TEAM CHRONIC DISEASE VISIT [facility] Start: 09-15-2022 ANNUAL PCP TEAM CHRONIC DISEASE VISIT ANNUAL PCP TEAM CHRONIC DISEASE VISIT [facility] Start: 06-19-2022 ADVANCE DIRECTIVE DISCUSSION ADVANCE DIRECTIVE DISCUSSION [facility] Start: 04-02-2022 ANNUAL PCP TEAM CHRONIC DISEASE VISIT ANNUAL PCP TEAM CHRONIC DISEASE VISIT [facility] Start: 03-29-2022 End: 05-29-2022 Hemoglobin A1c in Blood HGB A1C Lab Routine Medication management Expected: 03/29/2022, Expires: 05/29/2022 [facility] Work Phone: Comment on above: Expected: 03/29/2022, Expires: Start: 03-29-2022 End: 05-29-2022 Lipid 1996 panel - Serum or Plasma LIPID PANEL BASIC Lab Routine Hyperlipidemia Expected: 03/29/2022, Expires: 05/29/2022 [facility] Work Phone: Comment on above: Expected: 03/29/2022, Expires: 2 Start: 03-29-2022 End: 05-29-2022 SCHEDULE LAB TESTING SCHEDULE LAB TESTING Lab Routine Expected: 03/29/2022, Expires: 05/29/2022 [facility] Work Phone: Comment on above: Expected: 03/29/2022, Expires: 2 Start: 02-17-2022 Influenza vaccination INFLUENZA (#1) [facility] Start: 01-14-2022 End: 03-16-2022 CBC W Auto Differential panel - Blood [facility] Work Phone: Comment on above: Expected: 01/14/2022, Expires: 2 Start: 11-30-2021 Patient discharge [facility] Work Phone: Start: 11-28-2021 Care planning and problem solving actions [facility] Work Phone: Start: 11-26-2021 Administration of blood product [facility] Work Phone: Start: 11-26-2021 Catheterization of vein [facility] Work Phone: Start: 11-26-[address] [facility] Work Phone: Start: 11-26-2021 Referral to occupational therapist [facility] Work Phone: Start: 11-26-2021 End: 11-26-2021 Referral to service [facility] Work Phone: Start: 11-26-2021 Catheterization of vein [facility] Work Phone: Start: 11-26-2021 Following clinical pathway protocol [facility] Work Phone: Start: 11-26-2021 Inhalation therapy procedure [facility] Work Phone: Start: 11-25-2021 Assessment of risk of venous thromboembolism [facility] Work Phone: Start: 11-25-2021 Insertion of catheter into peripheral vein [facility] Work Phone: Start: 11-25-2021 Measuring intake and output [facility] Work Phone: Start: 11-25-2021 Oxygen therapy [facility] Work Phone: Start: 11-25-2021 Providing care according to standard [facility] Work Phone: Start: 11-25-2021 Provision of activity privileges [facility] Work Phone: Start: 11-25-2021 Referral to gastroenterology service [facility] Work Phone: Start: 11-25-2021 [facility] Work Phone: Start: 11-25-2021 Admission procedure [facility] Work Phone: Start: 11-25-2021 End: 11-25-2021 Administration of blood product [facility] Work Phone: Start: 11-25-2021 Patient referral to dietitian [facility] Work Phone: Start: 10-23-2021 End: 12-23-2021 PT panel - Platelet poor plasma by Coagulation assay PROTHROMBIN TIME/PT Lab Routine Anticoagulation goal of INR 2 to 3 Expected: 10/23/2021, Expires: 12/23/2021 [facility] Work Phone: Comment on above: Expected: 10/23/2021, Expires: 2 Start: 10-19-2021 End: 12-19-2021 Hemoglobin A1c/Hemoglobin.total in Blood HGB A1C Lab Routine Medication management Expected: 10/19/2021, Expires: 12/19/2021 [facility] Work Phone: Comment on above: Expected: 10/19/2021, Expires: 2 Start: 10-19-2021 End: 12-19-2021 LIPID PANEL BASIC LIPID PANEL BASIC Lab Routine Hyperlipidemia Expected: 10/19/2021, Expires: 12/19/2021 [facility] Work Phone: Comment on above: Expected: 10/19/2021, Expires: 2 Start: 10-19-2021 End: 12-19-2021 SCHEDULE LAB TESTING SCHEDULE LAB TESTING Lab Routine Expected: 10/19/2021, Expires: 12/19/2021 [facility] Work Phone: Comment on above: Expected: 10/19/2021, Expires: 2 Start: 10-17-2021 Colonoscopy COLONOSCOPY [facility] Start: 10-17-2021 COLORECTAL CANCER SCREENING COLORECTAL CANCER SCREENING [facility] Start: 09-22-2021 End: 11-22-2021 CBC W Auto Differential panel - Blood CBC + DIFF Lab Routine Anemia, unspecified type Expected: 09/22/2021, Expires: 11/22/2021 [facility] Work Phone: Comment on above: Expected: 09/22/2021, Expires: 2 Start: 09-22-2021 End: 11-22-2021 PT panel - Platelet poor plasma by Coagulation assay PROTHROMBIN TIME/PT Lab Routine Encounter for monitoring Coumadin therapy Expected: 09/22/2021, Expires: 11/22/2021 [facility] Work Phone: Comment on above: Expected: 09/22/2021, Expires: 2 Start: 08-21-2021 Patient discharge [facility] Work Phone: Start: 08-19-2021 Application of intermittent pneumatic compression device [facility] Work Phone: Start: 08-19-2021 Oxygen therapy [facility] Work Phone: Start: 08-19-2021 Tobacco use cessation education [facility] Work Phone: Start: 08-19-2021 [facility] Work Phone: Start: 08-19-2021 Care planning and problem solving actions [facility] Work Phone: Start: 08-19-2021 Administration of blood product [facility] Work Phone: Start: 08-19-2021 Referral to carton stapler [facility] Work Phone: Start: 08-19-2021 [facility] Work Phone: Start: 08-19-2021 Referral to occupational therapist [facility] Work Phone: Start: 08-19-2021 Referral to service [facility] Work Phone: Start: 08-19-2021 Application of intermittent pneumatic compression device [facility] Work Phone: Start: 08-19-2021 Administration of blood product [facility] Work Phone: Start: 08-19-2021 Administration of blood product [facility] Work Phone: Start: 08-19-2021 Inhalation therapy procedure [facility] Work Phone: Start: 08-18-2021 Following clinical pathway protocol [facility] Work Phone: Start: 08-18-2021 Ambulation without limitation [facility] Work Phone: Start: 08-18-2021 Assessment of risk of venous thromboembolism [facility] Work Phone: Start: 08-18-2021 Insertion of catheter into peripheral vein [facility] Work Phone: Start: 08-18-2021 Providing care according to standard [facility] Work Phone: Start: 08-18-2021 [facility] Work Phone: Start: 08-18-2021 Admission procedure [facility] Work Phone: Start: 06-19-2021 ADVANCE DIRECTIVE DISCUSSION ADVANCE DIRECTIVE DISCUSSION [facility] Start: 06-04-2021 Smpl repair scalp/neck/ax/genit/trunk 2.6-7.5cm RPR S/N/AX/GEN/TRNK2.6-7.5C M [facility] Work Phone: Start: 11-19-2020 SHINGRIX VACCINE (2 of 3) SHINGRIX VACCINE (2 of 3) [facility] Start: 11-05-2020 COVID-19 VACCINE (2 - Moderna 3-dose series) COVID-19 VACCINE (2 - Moderna 3-dose series) [facility] Start: 11-05-2020 COVID-19 VACCINE (2 - Moderna series) COVID-19 VACCINE (2 - Moderna series) [facility] Start: 03-19-2020 Hepatitis B surface antibody level LDL CHOLESTEROL [facility] Start: 11-15-2015 FECAL OCCULT BLOOD FECAL OCCULT BLOOD [facility] Start: 11-15-2015 Screening for malignant neoplasm of colon Fecal Occult Blood [facility] Start: 01-17-2014 Medicare Annual Wellness Visit Medicare Annual Wellness Visit [facility] Start: 2009 RSV Vaccine (1 - 1-dose 60+ series) RSV Vaccine (1 - 1-dose 60+ series) [facility] Start: 2009 RSV Vaccine (1 - Risk 60-74 years 1-dose series) RSV Vaccine (1 - Risk 60-74 years 1-dose series) [facility] Start: 1999 Influenza vaccination LUNG CANCER SCREENING [facility] Start: 1999 Screening for malignant neoplasm of lung Lung Cancer Screening [facility] Start: 1999 SHINGRIX VACCINE (1 of 2) SHINGRIX VACCINE (1 of 2) [facility] Start: 1994 COLOGUARD (FIT-DNA) COLOGUARD (FIT-DNA) [facility] Start: [address] COLONOGRAPHY [facility] Start: 1994 Screening for malignant neoplasm of colon [facility] Start: 1994 SIGMOIDOSCOPY SIGMOIDOSCOPY [facility] Start: 1979 Zoledronic acid therapy ALPHA-1 ANTITRYPSIN DEFICIENCY SCREENING [facility] Start: 1967 BP CONTROLLED (<130/80) BP CONTROLLED (<130/80) [facility] Bacteria identified in Urine by Culture URINE CULTURE Microbiology Routine Dysuria Ordered: 09/15/2021 [facility] Work Phone: Comment on above: Ordered: 09/15/2021 Bacteria identified in Urine by Culture Urine Culture [facility] Bacteria identified in Urine by Culture URINE CULTURE Microbiology Routine Dysuria 03/23/2024 2:06 PM EDT [facility] Work Phone: Blood ammonia measurement [facility] carBAMazepine [Mass/ volume] in Serum or Plasma [facility] Clostridioides diffi cile DNA [Presence] in Unspecified specimen by ALEENA with probe detection [facility] End: 01-28-2023 ECG COMPLETE ECG COMPLETE ECG Routine Essential hypertension Chest pain, unspecified type 1 Occurrences starting 01/28/2022 until 01/28/2023 [facility] Work Phone: Comment on above: 1 Occurrences starting 01/28/2022 until 01/28/2023 Hemoglobin A1c/Hemoglobin.total in Blood [facility] Hemoglobin.gastroint estinal. lower [Presence] in Stool by Immunoassay FECAL OCCULT BLOOD TEST Lab Routine Acute blood loss anemia Angiodysplasia of colon with hemorrhage Ordered: 01/14/2022 [facility] Work Phone: Comment on above: Ordered: 01/14/2022 INR in Blood by Coag ulation assay [facility] Lactic acid measurement [facility] End: 12-05-2022 LUNG DIFFUSION CAPACITY (DLCO) LUNG DIFFUSION CAPACITY (DLCO) PFT Routine COPD with chronic bronchitis (HCC) 1 Occurrences starting 11/05/2021 until 12/05/2022 [facility] Work Phone: Comment on above: 1 Occurrences starting 11/05/2021 until 12/05/2022 End: 01-15-2026 LUNG DIFFUSION CAPACITY (DLCO) LUNG DIFFUSION CAPACITY (DLCO) PFT Routine SOB (shortness of breath) 1 Occurrences starting 12/17/2024 until 01/15/2026 [facility] Comment on above: 1 Occurrences starting 12/17/2024 until 01/15/2026 Nucleic acid assay [facility] Patient Education [facility] Work Phone: Patient referral [facility] Work Phone: End: 06-18-2023 PVR LEG COREY VAS LAB PVR LEG COREY VAS LAB Vascular Lab Routine PVD (peripheral vascular disease) (HCC) 1 Occurrences starting 01/31/2022 until 06/18/2023 [facility] Work Phone: Comment on above: 1 Occurrences starting 01/31/2022 until 06/18/2023 PVR LEG COREY VAS LAB PVR LEG COREY VAS LAB Vascular Lab Routine Peripheral arterial disease (HCC) PVD (peripheral vascular disease) (HCC) 1 Occurrences starting 12/26/2022 [facility] Work Phone: Comment on above: 1 Occurrences starting 12/26/2022 End: 12-05-2022 Radiologic exam chest 2 views XR CHEST 2V FRONTAL/LAT Radiology Routine COPD with chronic bronchitis (HCC) 1 Occurrences starting 11/05/2021 until 12/05/2022 [facility] Work Phone: Comment on above: 1 Occurrences starting 11/05/2021 until 12/05/2022 Respiratory pathogen s DNA and RNA panel - Respiratory specimen by ALEENA with probe detection [facility] End: 01-15-2026 SPIROMETRY WITH DILATOR IF OBSTRUCTED SPIROMETRY WITH DILATOR IF OBSTRUCTED PFT Routine SOB (shortness of breath) 1 Occurrences starting 12/17/2024 until 01/15/2026 [facility] Work Phone: Comment on above: 1 Occurrences starting 12/17/2024 until 01/15/2026 Troponin T.cardiac [Mass/volume] in Serum or Plasma by High sensitivity method [facility] Troponin T.cardiac [Mass/volume] in Serum or Plasma by High sensitivity method [facility] Urinalysis complete panel - Urine URINALYSIS, WITH MICROSCOPIC Lab Routine Dysuria Hematuria, unspecified type Ordered: 09/15/2021 [facility] Work Phone: Comment on above: Ordered: 09/15/2021 Urinalysis complete panel - Urine UA WITH CULTURE IF INDICATED Lab Routine Dysuria Ordered: 09/15/2021 [facility] Work Phone: Comment on above: Ordered: 09/15/2021 US Carotid arteries [facility] End: 01-01-2025 US Lower extremity artery - bilateral PVR LEG COREY VAS LAB Vascular Lab Routine Peripheral arterial disease (HCC) 1 Occurrences starting 01/02/2024 until 01/01/2025 [facility] Work Phone: Comment on above: 1 Occurrences starting 01/02/2024 until 01/01/2025 End: 01-11-2026 XR Chest PA and Lateral XR CHEST 2V FRONTAL/LAT Radiology Routine Wheezing 1 Occurrences starting 12/12/2024 until 01/11/2026 [facility] Comment on above: 1 Occurrences starting 12/12/2024 until 01/11/2026 XR Chest PA and Lateral XR CHEST 2V FRONTAL/LAT Radiology Routine Wheezing 12/12/2024 3:36 PM EDT [facility] Immunizations Immunization Date Immunization Notes Care Provider [facility] 03-31-2023 Influenza High-Dose Quadrivalent Dr. Daija Morton Work Phone: [facility] 03-31-2023 influenza virus vaccine, unspecified formulation Daija Morton MD Work Phone: [facility] 06-04-2021 tetanus toxoid, redu marianna diphtheria toxoid, and acellular pertussis vaccine, adsorbed Dr. Daija Morton Work Phone: [facility] 04-05-2021 influenza, high-dose , quadrivalent vaccine (FLUZONE HIGH DOSE QUADRIVALENT) Lizette Ulloa RN Work Phone: [facility] 04-05-2021 influenza virus vaccine, unspecified formulation Anjel Braga APRN.PHOTOGRAPHIC TECHNICIAN Work Phone: [facility] 10-08-2020 COVID-19 vaccine, fu ll dose (MODERNA) Lizette Ulloa RN Work Phone: [facility] 09-24-2020 zoster vaccine, live Harriett lomax CYBER INCIDENT ANALYST.TRANSMISSION WORKER Work Phone: [facility] 09-16-2020 influenza, high-dose , quadrivalent vaccine (FLUZONE HIGH DOSE QUADRIVALENT) [facility] Work Phone: [facility] Work Phone: 08-09-2020 influenza, injectabl e, quadrivalent, contains preservative Harriett Albert CYBER INCIDENT ANALYST.TRANSMISSION WORKER Work Phone: [facility] 08-09-2020 influenza, injectabl e, quadrivalent, preservative free Dr. Daiaj Morton Work Phone: [facility] 08-09-2020 influenza, seasonal, injectable Dr. Daija Morton Work Phone: [facility] 08-09-2020 influenza, seasonal, injectable, preservative free Harriett Albert CYBER INCIDENT ANALYST.TRANSMISSION WORKER Work Phone: [facility] 05-21-2020 influenza, high-dose , quadrivalent vaccine (FLUZONE HIGH DOSE QUADRIVALENT) Lizette Ulloa RN Work Phone: [facility] Work Phone: 07-11-2019 influenza, high dose seasonal, preservative-free Lizette Ulloa RN Work Phone: [facility] Work Phone: 05-18-2018 pneumococcal polysaccharide vaccine, 23 valent Lizette Ulloa RN Work Phone: [facility] 03-14-2018 influenza, high dose seasonal, preservative-free Lizette Ulloa RN Work Phone: [facility] 05-31-2017 influenza, high dose seasonal, preservative-free Lizette Ulloa RN Work Phone: [facility] 06-01-2016 influenza, high dose seasonal, preservative-free Lizette Mayi RN Work Phone: [facility] Work Phone: 03-23-2016 influenza, injectabl e, quadrivalent, contains preservative Harriett Albert CYBER INCIDENT ANALYST.TRANSMISSION WORKER Work Phone: [facility] 03-23-2016 influenza, injectabl e, quadrivalent, preservative free Dr. Daija Morton Work Phone: [facility] 03-23-2016 influenza, seasonal, injectable Dr. Daija Morton Work Phone: [facility] 03-23-2016 influenza, seasonal, injectable, preservative free Lizette Ulloa RN Work Phone: [facility] Work Phone: 07-14-2015 pneumococcal conjuga te vaccine, 13 valent Lizette Ulloa RN Work Phone: [facility] Work Phone: 09-09-2014 influenza, injectabl e, quadrivalent, contains preservative Harriett Albert CYBER INCIDENT ANALYST.TRANSMISSION WORKER Work Phone: [facility] 09-09-2014 influenza, injectabl e, quadrivalent, preservative free Dr. Daija Morton Work Phone: [facility] 09-09-2014 influenza, seasonal, injectable Dr. Daija Morton Work Phone: [facility] 09-09-2014 influenza, seasonal, injectable, preservative free Lizette Ulloa RN Work Phone: [facility] Work Phone: 03-25-2013 pneumococcal polysaccharide vaccine, 23 valent Lizette Ulloa RN Work Phone: [facility] Work Phone: 03-25-[address] Nemesio Morton Work Phone: [facility] Work Phone: 03-25-2013 pneumococcal vaccine , unspecified formulation Respiratory Wstr Work Phone: [facility] Work Phone: 03-24-[address] Daija Morton Work Phone: [facility] 03-24-2013 influenza virus vaccine, unspecified formulation Lizette Ulloa RN Work Phone: [facility] Work Phone: 03-24-2013 influenza, seasonal, injectable Harriett Albert APRN.TRANSMISSION WORKER Work Phone: [facility] 03-24-2013 influenza, seasonal, injectable, preservative free Lizette Ulloa RN Work Phone: [facility] Work Phone: 01-03-2013 tetanus toxoid, redu marianna diphtheria toxoid, and acellular pertussis vaccine, adsorbed Lizette Ulloa RN Work Phone: [facility] Payers Date Payer Category Payer Unknown [id number] 2024 Medicare (Managed Care) 1.2. [id number] 2024 Medicaid [id number] 2024 Unknown [id number] 2024 Self-pay [id number] 2023 Private Health Insurance [id number] 2022 Unknown [id number] 2021 Medicare [facility] A[facility] MED[facility] E [facility]IC[facility] HMO [id number] 2021-Present [phone] [address] [address] [place] [address] HMO [id number] .[id number] 2017 Medicaid [id number] 1.2.840.832534.1.13.159.2.7 .[id number] 2017 Medicaid 1.2.840.903085. 1.13.159.2.7 .3.012383.315 2014 Medicare [id number] 2014 Medicare [id number] 2014 Medicare 1.2.840.847818. 1.13.159.2.7 .3.106947.315 1950 Unknown [id number] 2.16.840.1.035555.3.579.2.6 27 1950 Unknown [id number] 2.16.840.1.523381.3.579.2.6 27 1950 Unknown [id number] 2.16.840.1.206991.3.579.2.6 27 Private Health Insurance [facility] [id number] Unknown [id number] Unknown [id number] Unknown [id number] 2.16.840.1.727569.3.579.2.4 62 Unknown [id number] 2.16.840.1.148307.3.579.2.4 62 Unknown [id number] 2.16.840.1.627989.3.579.2.4 62 Unknown [id number] 2.16.840.1.766341.3.579.2.4 62 Unknown [id number] 2.16.840.1.249945.3.579.2.4 62 Unknown [id number] 2.16.840.1.840765.3.579.2.4 62 Unknown [id number] 2.16.840.1.442080.3.579.2.4 62 Unknown [id number] 2.16.840.1.532436.3.579.2.4 62 Unknown [id number] 2.16.840.1.789555.3.579.2.4 62 Unknown [id number] 2.16.840.1.231915.3.579.2.4 62 Unknown [id number] 2.16.840.1.888511.3.579.2.4 62 Unknown [id number] 2.16.840.1.672443.3.579.2.4 62 Unknown [id number] 2.16.840.1.760230.3.579.2.4 62 Unknown [id number] 2.16.840.1.175517.3.579.2.4 62 Unknown [id number] 2.16.840.1.482373.3.579.2.4 62 Unknown [id number] 2.16.840.1.701272.3.579.2.4 62 Unknown [id number] 2.16.840.1.377409.3.579.2.4 62 Unknown [id number] 2.16.840.1.380027.3.579.2.4 62 Unknown [id number] 2.16.840.1.247556.3.579.2.4 62 Unknown [id number] 2.16.840.1.925141.3.579.2.4 62 Unknown [id number] 2.16.840.1.761992.3.579.2.4 62 Unknown [id number] 2.16.840.1.353317.3.579.2.4 62 Unknown [id number] 2.16.840.1.657666.3.579.2.4 62 Unknown [id number] 2.16.840.1.798347.3.579.2.4 62 Unknown [id number] 2.16.840.1.934114.3.579.2.4 62 Unknown [id number] 2.16.840.1.680820.3.579.2.4 62 Unknown [id number] 2.16.840.1.069640.3.579.2.4 62 Unknown [id number] 2.16.840.1.861513.3.579.2.4 62 Unknown [id number] 2.16.840.1.050723.3.579.2.4 62 Unknown [id number] 2.16.840.1.707286.3.579.2.4 62 Unknown [id number] 2.16.840.1.245502.3.579.2.4 62 Unknown [id number] 2.16.840.1.228676.3.579.2.4 62 Unknown [id number] 2.16.840.1.794441.3.579.2.4 62 Unknown [id number] 2.16.840.1.556356.3.579.2.4 62 Unknown [id number] 2.16.840.1.290340.3.579.2.4 62 Unknown [id number] 2.16.840.1.932348.3.579.2.4 62 Unknown [id number] 2.16.840.1.561427.3.579.2.4 62 Unknown [id number] 2.16.840.1.002585.3.579.2.4 62 Unknown [id number] 2.16.840.1.923671.3.579.2.4 62 Unknown [id number] 2.16.840.1.952794.3.579.2.4 62 Unknown [id number] 2.16.840.1.263395.3.579.2.4 62 Unknown [id number] 2.16.840.1.694259.3.579.2.4 62 Unknown [id number] 2.16.840.1.325431.3.579.2.4 62 Unknown [id number] 2.16.840.1.102861.3.579.2.4 62 Unknown [id number] 2.16.840.1.840947.3.579.2.4 62 Unknown [id number] 2.16.840.1.969230.3.579.2.4 62 Unknown [id number] 2.16.840.1.457583.3.579.2.4 62 Unknown [id number] 2.16.840.1.046433.3.579.2.4 62 Unknown [id number] 2.16.840.1.848873.3.579.2.4 62 Unknown [id number] 2.16.840.1.068976.3.579.2.4 62 Unknown [id number] 2.16.840.1.234837.3.579.2.4 62 Unknown [id number] 2.16.840.1.381008.3.579.2.4 62 Unknown [id number] 2.16.840.1.692965.3.579.2.4 62 Unknown [id number] 2.16.840.1.995554.3.579.2.4 62 Unknown [id number] 2.16.840.1.690497.3.579.2.4 62 Unknown [id number] 2.16.840.1.794770.3.579.2.4 62 Unknown [id number] 2.16.840.1.951576.3.579.2.4 62 Unknown [id number] 2.16.840.1.492528.3.579.2.4 62 Unknown [id number] 2.16.840.1.225948.3.579.2.4 62 Unknown [id number] 2.16.840.1.095632.3.579.2.4 62 Unknown [id number] 2.16.840.1.735990.3.579.2.4 62 Unknown [id number] 2.16.840.1.573337.3.579.2.4 62 Unknown [id number] 2.16.840.1.498083.3.579.2.4 62 Unknown [id number] 2.16.840.1.818015.3.579.2.4 62 Unknown [id number] 2.16.840.1.393818.3.579.2.4 62 Social History Date Type Detail Facility Start: 04-10-2020 End: 01-05-2025 Tobacco smoking status NHIS Ex-smoker [facility] Start: 06-19-1964 History of tobacco use Cigarette Smo ker [facility] Start: 04-10-2020 End: 12-26-2022 Cigarettes smoked current (pack per day) - Reported 2 [facility] Start: 04-10-2020 End: 03-23-2024 Tobacco use and exposure Smokeless tobacco non-user [facility] Start: 08-26-2021 End: 12-12-2024 Alcohol intake Current non-drinker of alcohol (finding) [facility] Start: 04-16-2015 History SDOH Alcohol Comment History of alcohol abuse. I cut that out. [facility] Start: 12-17-2019 History SDOH Financial 5 [facility] Start: 12-17-2019 History SDOH Food Worry 2 [facility] Start: 12-17-2019 History SDOH Food Scarcity 1 [facility] Start: 08-22-2019 End: 01-31-2022 Tobacco Comment patient started using patches [facility] Start: 1950 Sex Assigned At Not on file [facility] Start: 10-12-2020 End: 03-10-2022 Exposure to SARS-CoV-2 (event) Not sure [facility] Start: 06-19-1964 End: 03-23-2024 Tobacco smoking status NHIS Smokes tobacco daily [facility] Start: 09-17-2021 End: 01-23-2025 Tobacco smoking status NHIS Unknown if ever smoked [facility] Start: 01-20-2021 None [facility] Start: 12-16-[address] [facility] Start: 08-09-[address] [facility] Start: 1950 Sex Assigned At Male W [facility] Start: 09-14-2021 End: 01-28-2022 Exposure to SARS-CoV-2 (event) Unable to assess [facility] Start: 05-14-2018 Tobacco smoking status Light t obacco smoker (finding) [facility] Sex Assigned At [facility] Start: 12-17-2019 End: 12-26-2022 Tobacco use panel [facility] How hard is it for y ou to pay for the very basics like food, housing, medical care, and heating Not hard at all [facility] (I/We) worried massimo er (my/our) food would run out before (I/we) got money to buy more. Sometimes true [facility] The food that (I/we) bought just didn't last, and (I/we) didn't have money to get more. Never true [facility] Start: 06-19-1963 History of tobacco use Current smoke r [facility] Start: 08-25-2024 End: 08-25-2024 Tobacco smoking status NHIS Current some day smoker [facility] Start: 06-02-2009 End: 08-25-2024 Sex Male (finding) [facility] Medical Equipment Procedure Code Equipment Code Equipment Original Text Equipment Identifier Dates EGD, with monitored anesthesia care ()[id number] FDA Start: 12-23-2024 EGD, with monitored anesthesia care ()[id number] FDA Start: 01-06-2025 Graft [place] 7mm T hin Wall Heparin Propaten Ptfe 80cm 60cm Vascular Removable - [id number] Start: 10-10-2019 Patch Cv 8x.8cm Tapr Vsgrd Bov - [id number] Start: 10-23-2013 Comment on above: Description: Implant ed left femoral artery Patch Vascu-Guar d Taper Bovine Pericardial 8x.8cm Cardiovascular [place] - [id number] Start: 10-08-2019 Stent Palmaz Gen esis Opta Pro Flexsegment 8mm 40mm Large Stainless Steel 80 - [id number] Start: 10-08-2019 Stent Palmaz Gen esis Opta Pro Flexsegment 8mm 40mm Large Stainless Steel 80 - [id number] Start: 10-08-2019 Stent Trchbr 7mm 7fr 38mm 120 - [id number] Start: 10-23-2013 Comment on above: Description: Second stent lot #[id number]. exp. 03/2016 Stent Vasc 8mm 1 5cm 120cm .035 - [id number] Start: 10-23-2013 Comment on above: Description: Implant ed in left iliac artery Stent Trchbr 7mm 7fr 38mm 120 - [id number] Start: 10-23-2013 Stent Corey 10mm 8 0mm 120cm .035 - [id number] Start: 10-23-2013 Comment on above: Description: Implant ed in right iliac artery Stent Corey 10mm 8 0mm 120cm .035 - [id number] Start: 10-23-2013 Comment on above: Description: Implant ed in right iliac artery Stent Icast 8mm Ptfe Stainless Steel 59mm 80cm Tracheobronchial Covered - [id number] Start: 10-08-2019 Stent Icast 8mm Ptfe Stainless Steel 59mm 80cm Tracheobronchial Covered - [id number] Start: 10-08-2019 Goals Date Patient Goal [...] Functional status Ambulates;Emeka r;Bedside Commode;Stand and pivot [facility] Work Phone: 12-26-2024 Functional status Stand and pivot [facility] Work Phone: 12-16-2024 Functional status [facility] 1 [facility] Work Phone: 12-16-2024 Functional status Ambulates;Back to bed W [facility] Work Phone: 09-02-2024 Functional status With Assist of 1 [facility] Work Phone: 09-01-2024 Functional status Bathroom Privilege [facility] Work Phone: 08-02-2023 Functional status With Assist of 1 [facility] Work Phone: 08-01-[address] [facility] Work Phone: 07-26-[address] [facility] Work Phone: 07-26-[address] [facility] Work Phone: 07-25-[address] [facility] Work Phone: 04-04-2023 Functional status Up ad chadwick;Bath room Privilege [facility] Work Phone: 10-22-2022 Functional Status Minimum assistance [facility] 10-22-2022 Functional Status Standard Safet y ID band on, Call device within reach, Bed in low position, Wheels locked, Upper/Half-Length side-rails up, Phone within reach, Bedside Cart Locked [facility] 11-30-[address] [facility] Work Phone: 09-29-[address] Functional [address] [facility] 09-13-2021 Are you deaf, or do you have serious difficulty hearing No 09/13/2021 4:47 PM Bessy Ovalles, RN No [facility] 09-13-2021 Are you blind, or do you have serious difficulty seeing, even when wearing glasses No 09/13/2021 4:47 PM Bessy Ovalles, RN No [facility] 09-13-2021 Do you have serious difficulty walking or climbing stairs No 09/13/2021 4:47 PM EDT Bessy Nunez, RN No [facility] 09-13-2021 Do you have difficul ty dressing or bathing No 09/13/2021 4:47 PM EDT Bessy Nunez, RN No [facility] 09-13-2021 Because of a physica l, mental, or emotional condition, do you have difficulty doing errands alone such as visiting a physician's office or shopping No 09/13/2021 4:47 PM EDT Bessy Nunez, SEYMOUR No [facility] 08-21-2021 Functional status Ambulates;Emeka r;Bathroom Privilege [facility] Work Phone: 08-21-2021 Functional status Tolerates Activity Well [facility] Work Phone: Mental Status Date Assessment Result Facility 01-08-2025 Cognitive function Touch/Shaking [facility] Work Phone: 01-05-2025 Cognitive function Awake;Disoriented [facility] Work Phone: 12-26-2024 Cognitive function Voice/Name [facility] Work Phone: 12-17-2024 Cognitive function Voice/Name [facility] Work Phone: 12-16-2024 Cognitive function Voice/Name [facility] Work Phone: 09-02-2024 Cognitive function Voice/Name [facility] Work Phone: 08-25-2024 Cognitive function Level Of Cons ciousness Awake;Alert;Appropriate;Fol lows Commands [facility] Work Phone: 08-02-2023 Cognitive function Voice/Name [facility] Work Phone: 07-26-2023 Cognitive function Person;Place;Time [facility] Work Phone: 07-25-2023 Cognitive function Voice/Name [facility] Work Phone: 04-04-2023 Cognitive function Voice/Name [facility] Work Phone: 02-17-2023 Cognitive function Level Of Cons ciousness Awake;Alert;Appropriate;Fol lows Commands [facility] Work Phone: 12-31-2022 Cognitive function Level Of Cons ciousness Awake;Alert;Appropriate;Fol lows Commands [facility] Work Phone: 10-22-2022 Mental Status Orientation Oriented x 4 [facility] 10-22-2022 Mental Status [facility] 03-07-2022 Cognitive function Level Of Cons ciousness Awake;Alert;Appropriate [facility] Work Phone: 03-02-2022 Cognitive function Level Of Cons ciousness Awake;Alert;Appropriate [facility] Work Phone: 01-28-2022 Cognitive function Level Of Cons ciousness Awake;Alert;Appropriate;Fol lows Commands [facility] Work Phone: 11-30-2021 Cognitive function Voice/Name [facility] Work Phone: 10-08-2021 Cognitive function Level Of Cons ciousness Awake;Alert;Appropriate;Fol lows Commands [facility] Work Phone: 09-29-2021 Mental Status [facility] 09-13-2021 Because of a physica l, mental, or emotional condition, do you have serious difficulty concentrating, remembering, or making decisions No 09/13/2021 4:47 PM EDT Bessy Nunez RN No [facility] 08-21-2021 Cognitive function Voice/Name [facility] Work Phone: 06-12-2021 Cognitive function Level Of Cons ciousness Awake;Alert;Appropriate;Fol lows Commands [facility] Work Phone: Clinical Notes 10-08-2019 to [...] in any part of the body Seizures [phone] [employer]. [address] [place] [address]. All rights reserved. This information is not intended as a substitute for professional medical care. Always follow your healthcare professional's instructions. Follow Up Care 03/18/2025 02:08:48 With:Go to emergency room if symptoms worsen Address:Unknown When:2-4 days With:CARLA CRANE MD Address: [address] [place] [phone]- [phone] When:2-4 days [facility] 03-18-2025 Note Discharge Instructions Thank you for allowing [facility] to assist you with your healthcare needs. [...] with CARLA CRANE MD When:Within 2-4 days Where:[address] [place] [phone]- [phone] Allergies NKA Medications Please ask your primary [...] in any part of the body Seizures 2447-5149 [employer]. [address] [place] [address]. All rights reserved. This information is not intended as a substitute for professional medical care. Always follow your healthcare professional's instructions. Additional Information VACCINATE! IT SAVES LIVES! Members of the community who have not yet received the COVID-19 vaccine and would like to receive it can visit one of [facility] vaccine clinics. There are many vaccine clinic locations within the [facility]. For locations and available times, please visit [email or web address] [email or web address] It is important to note that some COVID mobile vaccine clinics are held outdoors and may be canceled in rainy or stormy conditions. To learn more about pediatric vaccinations (ages 5-11), we invite you to visit the [facility] webpage. https://www.[email or web address].org/p ages/2669-Ppmvg-Wseeeopedga-Freq axohil-Uomxm-Ijpthfbhj.html To learn more about the COVID-19 vaccine, we invite you to visit the CDC website for a list of frequently asked questions. https://www.cdc.gov/coronavirus/ 2019-ncov/vaccines/faq.html [facility] [employer] [facility] Patient Portal Access Instructions: Stay connected with your healthcare team and access your personal medical information anytime with the [facility] [facility] Patient Portal. If you would like a full copy of your medical records please contact the [facility] Medical Records Department Monday through Monday between 8a.m. and 4:30p.m. Please follow the directions below to access the portal: 1.Access the email account you provided upon registration to the [facility].2.Look for an invitation email from [facility].3.Open the email and access the invitation link: Accept [facility]itation to [facility]4.Fill in the required batres to create your account. To access your account, visit [employer] or scan the [employer] code above. Click the blue button labeled [...] you will allow to register on the [facility] [facility] Patient Portal for access to your information. You can also access the [facility] Patient Portal on the [employer]. Simply click on Health Records under Health Data and then click on the [employer] logo. HOW TO SAFELY DISPOSE OF PRESCRIPTION [...] Call your local pharmacy or go to http://bit.ly/2J7Oo6s to find one close to you.3.Make use of household items: Use cat litter or old coffee grounds to dispose medications if other options are not available. Mix your drugs with these household products, seal them in an airtight container and throw it into the garbage. Call [facility]: [phone] to be sure your drugs can be [...] aware that I should contact my doctor. 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: Date/Time: Relationship to Patient: Witness Name/Signature: Date/Time: [facility] 03-18-2025 Note Exam Date Time Procedure Performing Provider Status 03/18/25 3:[address] Maxillofacial w/o Contrast LEYLA SHOOK MD; Auth (Verified) [id number] ORIGINAL EXAMINATION: CT OF THE FACE WITHOUT [...] 4:22:40 AM Ordering Provider: MAGDALENE POWELL RP [facility]09-30-2025 Note* Exam Date Time Procedure Performing Provider Status 03/18/25 3:[address] Spine Cervical w/o Contrast LEYLA SHOOK MD; Auth (Verified) [id number] ORIGINAL EXAMINATION: CT OF THE CERVICAL SPINE [...] 4:21:10 AM Ordering Provider: MAGDALENE POWELL RP [facility]09-30-2025 Note* Exam Date Time Procedure Performing Provider Status 03/18/25 3:[address] Head or Brain w/o Contrast LEYLA SHOOK MD; Auth (Verified) [id number] ORIGINAL EXAMINATION: CT OF THE HEAD WITHOUT [...] 4:14:48 AM Ordering Provider: MAGDALENE POWELL RP [facility]08-01-2025 Telephone encounter Note* Telephone Encounter - [...] January 17, 2025 9:07 AM [facility]08-01-2025 Miscellaneous Notes* Telephone Encounter - Debby [...] 9:07 AM [facility] Discharge summary Author Ryan Guerin [facility] Note Date/Time January 08, 2025 4:09 pm [facility] Medical Records Department [address] [place] [address] Transfer to [facility] MR#: [id number] Acct: [id number] Name: PEDRO PABLO SIERRA Rep #:[id number] : 1950 74 From: Ryan Guerin DO PCP: Dr. Lorraine Mena MD Status:A DM IN Certification of patient admission REQUIRED AT TIME OF ADMISSION. I CERTIFY THAT POST-HOSPITAL ECF SERVICES ARE REQUIRED TO BE GIVEN ON AN IN-PATIENT BASIS BECAUSE OF THE ABOVE NAMED PATIENT'S NEED FOR FDC CARE ON A CONTINUING BASIS FOR THE CONDITION(S) FOR WHICH HE/SHE WAS RECEIVING IN-PATIENT HOSPITAL SERVICES PRIOR TO HIS/HER TRANSFER TO THE [facility]. 01/08/25 1609<Electronically signed by Ryan Guerin DO> [...] advanced diet as tolerated to cardiac per PATROL CAPTAIN recommendations. 2. Initiate via PEG: Jevity 1.5Cal [...] in before D/C Order can be placed): [facility] 01/08/25 2825 <Electronically signed by Ryan Guerin DO> Cosigner Signature (if applicable): CC: Dr. Frankie Galindo MD; Dr. Lorraine Mena MD ~ [facility] Work Phone: 1(466) 835-498807-23-2025 Hospital Discharge instructionsAdditional Instructions Date of Discharge: 01/08/25[facility] Work Phone: 1(145) 524-444907-23-2025 Progress note Author Ryan Guerin [facility] Note Date/Time January 08, 2025 7:25 am [facility] Medical Records Department [address] [facility] [place] [address] Progress Note - Hospitalist 01/07/251951 MR#: [id number] Acct: [id number] Name: PEDRO PABLO SIERRA Rep #:[id number] : 1950 74 From: Ryan Guerin DO PCP: Dr. Lorraine Mena MD Status:A DM IN Location: [place] [address] Reason for Visit Chief Complaint: Suspected PEG tomorrow found Subjective Subjective The date of this injury is 01/07/2025: Patient was seen and examined today, he iscurrently on 2 L of oxygen via nasal cannula, I restarted his tube feedings today, we are currently [facility] Objective Data Objective [...] 35 minutes Charges/Coding Visit Charges Inpatient E&M: 91182 Subs Hosp L2 01/08/25724 <Electronically signed by Ryan Guerin DO> Cosigner Signature (if applicable): CC: ~ Signed [facility] Work Phone: 1(806) 659-571307-22-2025 Progress note Author [facility] Note Date/Time January 07, 2025 7:52 pm [facility] Medical Records Department [address] [place] [address] Progress Note - Hospitalist 01/07/251943 MR#: [id number] Acct: [id number] Name: PEDRO PABLO SIERRA Rep #:[id number] : 1950 74 From: Ryan Guerin DO PCP: Dr. Lorraine Mena MD Status:A DM IN Location: [place] [address] Reason for Visit Chief Complaint: Suspected PEG [...] 35 minutes Charges/Coding Visit Charges Inpatient E&M: 31403 Subs Hosp L2 01/07/251951 <Electronically signed by Ryan Guerin DO> Cosigner Signature (if applicable): CC: ~ Signed [facility] Work Phone: 1(348) 851-550607-22-2025 Progress note Author Paulino Henderson [facility] Note Date/Time January 07, 2025 5:41 pm [facility] Medical Records Department [address] [place] [address] Progress Note 01/07/25 1739 MR#: [id number] Acct: [id number] Name: PEDRO PABLO SIERRA Shannan Rep #:[id number] : 1950 74 From: Paulino Henderson DO PCP: Dr. Lorraine Mena MD Status:A DM IN Location: [place] [address] Progress Note Patient had some respiratory distress [...] for daily usage. Visit Charges Inpatient E&M: 67607 Subs Hosp L3 01/07/25 1741 <Electronically signed by Paulino Henderson DO> Paulino Henderson DO Cosigner Signature (if applicable): CC: ~ Signed [facility] Work Phone: 1(255) 446-278507-21-2025 Consult note Author Segun [facility] Note Date/Time January 06, 2025 6:04 pm [facility] Medical Records Department [address] [place] [address] Anesthesia Postop Eval II 01/06/25 1755 MR#: [id number] Acct: [id number] Name: PEDRO PABLO SIERRA Rep #:[id number] : 1950 74 From: Segun Patel MD PCP: Dr. Lorraine Mena MD Status:A DM IN Y Race: C Location: [place] [address] 1-1 Anesthesia Postop Eval I Sum Postop Eval Completion status Anesthesia document: Postop Eval 1 completed: Yes Anesthesia Postop Eval I Summary Anesthesia Postop Eval I Summary: Anesthesia Postop Eval I: Assessment Summary Airway patent Yes 01/06/25 16:59 PHYSICAL DIRECTOR.ABAR Spontaneous unlabored Yes 01/06/25 16:59 PHYSICAL DIRECTOR.ABAR respirations Mental status Awake,Calm 01/06/25 16:59 PHYSICAL DIRECTOR.ABAR nausea No 01/06/25 16:59 PHYSICAL DIRECTOR.ABAR Vomiting No 01/06/25 16:59 PHYSICAL DIRECTOR.ABAR Anesthesia Postop Eval I: Fluid Summary Crystalloid volume administer 100 01/06/25 16:59 PHYSICAL DIRECTOR.ABAR (ml) Colloids volume administered ( ml) Blood Product volume administered (ml) Total IV fluid infused 100 01/06/25 16:59 PHYSICAL DIRECTOR.YURI Anesthesia Postop Eval I: Summary Notes Anesthesia Complication No 01/06/25 16:59 PHYSICAL DIRECTOR.ABAR Anesthesia Complication Comment: Post-operative progress note Anesthesia: [...] patient's current conditions. Patient transferred back to [facility] with oxygen. 01/06/251803 <Electronically signed by Segun corbett MD> Date _ Segun Patel MD Cosigner Signature: Date CC: ~ Signed [facility] Work Phone: 1(417) 819-194907-21-2025 Consult note Author Roman Holland [facility] Note Date/Time January 06, 2025 4:59 pm [facility] Medical Records Department [address] [place] [address] Anesthesia Postop Eval I 01/06/25 1658 MR#: [id number] Acct: [id number] Name: ARIEL SIERRAJAYY Pierce Rep #:[id number] : 1950 74 From: Roman reaves CRNA PCP: Dr. Lorraine Mena MD Status:A DM IN Y Race: C Location: [place] [address] 06-19 Anesthesia: Postop Eval I Current Vital [...] document: Postop Eval 1 completed: Yes 01/06/25 1778 <Electronically signed by Roman Greene PHYSICAL DIRECTOR> Date _ Roman Holland PHYSICAL DIRECTOR Cosigner Signature: Date CC: ~ Signed [facility] Work Phone: 1(727) 697-536807-21-2025 Consult note Author Segun [facility] Note Date/Time January 06, 2025 3:58 pm [facility] Medical Records Department [address] [place] [address] Pre-Anesthesia Evaluation 01/06/25 1542 MR#: [id number] Acct: [id number] Name: PEDRO PABLO SIERRA Rep #:[id number] : 1950 74 From: Segun Patel MD PCP: Dr. Lorraine Mena MD Status:A DM IN Y Race: C Location: [place] [address] ASA Classification* ASA Classification ASA Classification: 4 [...] (Patient's ex- is the medical power of real estate attorney (Joseph Burrell).) Anesthesia Focused Assessment* Temperature: [...] tube placement. 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 - graphic art designer: Anesthesia History - graphic art designer Hx Hospitalization Yes 08/08/20 16:59 Any Problems [...] Yes NPO since: 00:00 PONV PONV - graphic art designer: PONV - graphic art designer Female HX of Motion Sickness HX of N/V After Surgery Non-Smoker Duration of Surgery greater than 60 minutes Number of Risk Factors PONV Score Height & Weight Height & Weight: Anesthesia: Height & Weight Height 6 ft 01/06/25 08:50 Weight: 66.5 kg 01/06/25 08:50 Body Mass Index (BMI) 19.8 01/06/25 05:00 Respiratory Assessment Respiratory Assessment - graphic art designer: Respiratory Tract Infection Hx - graphic art designer Hx Respiratory Tract Infection No 12/23/24 09:15 Any additional information?: Yes Hx Respiratory Tract Infection: Yes History of Anesthesia Respiratory Infection details: Patient had an episode of aspiration pneumonia yesterday at the assisted. Patient had to be put up to 10 L of oxygen on the Ventimask. He is currently on 8 L nasal cannula. STOP Sleep Apnea STOP Sleep Apnea - graphic art designer: STOP Sleep Apnea - graphic art designer Hx Hypertension Yes 01/05/25 14:48 Hx Sleep [...] Tobacco Use History Tobacco Use History - graphic art designer: Tobacco Use History - graphic art designer Tobacco Use Cigarettes 12/26/24 04:00 Smoking Status Unknown if ever smoked 01/05/25 14:48 Hx Tobacco Use No: unknown 01/05/25 14:48 Years Smoking Packs Smoked per Day Smoking Cessation Date was Yes - quit smoking within 15 01/05/25 09:44 within the last 15 years years Hx Smoking Cessation Date Hx Smoking Cessation No 01/05/25 14:48 Counseling Hematologic Medial History Hematologic Hx - graphic art designer: Hematologic Medical Hx - medical authorization specialist Hx of Blood Transfusion No 01/05/25 [...] confused, unrespo /Reproduction History /Reproductive History - graphic art designer: /Reproductive Hx- graphic art designer Hx Now Gestational Age (in weeks): EDC: [...] 01/06/25 14:28 Carbamazepine 200 Mg/10 Ml Udc ([facility]) GT Not Given 4X/DAY LEON Cholecalciferol [...] mls @ 15 mls/hr 01/05/25 15:14 IV .[id number] PRN Saline Flush Sodium Chloride 250 mls @ 15 mls/hr 01/05/25 15:14 IV .[id number] PRN Additional IVPB Infusion Sodium Chloride 1,000 [...] no additional complaints, except as documented. 01/06/25 1423 <Electronically signed by Segun corbett MD> Date _ Segun Patel MD Cosigner Signature: Date CC: ~ Signed [facility] Work Phone: 1(701) 172-898507-21-2025 Procedure [facility] 01-06-2025 Procedure [facility]07-21-2025 Radiology Diagnostic study [facility]07-20-2025 Consult note Author Paulino Friend [facility] Note Date/Time January 05, 2025 7:50 pm [facility] Medical Records Department [address] [place] [address] Consultation - GI 01/05/251945 MR#: [id number] Acct: [id number] Name: PEDRO PABLO SIERRA Rep #:[id number] : 1950 74 From: Paulino Henderson DO PCP: Dr. Lorraine Mena MD Status:A DM IN Location: [place] [address] HPI Consult Data Date of Consult: 01/05/25 [...] to put the PEG tube back in. [facility] Medical History Acute CVA (cerebrovascular accident) Aphasia [...] 76.7 H, Lymph % (Auto) 14.2 L, Bee % (Auto) 7.0, Eos % (Auto) 1.2, [...] IMPRESSION: COPD. No acute findings. Reading Location: [id number] KUB X-Ray 01/05/25 13:02 IMPRESSION: A PEG tube tip is projected in the region of the stomach. Contrast material is identified within the stomach. There is no extravasation of the contrast. Reading Location: [id number] Assessment & Plan Assessment/Plan (1) PEG tube malfunction: PLAN: 74-year-old with multiple comorbidities who recently pulled his PEG tube out. We will take him for endoscopy tomorrow for PEG tube replacement. His bowel return was explained alternatives, benefits, risk including understanding bleeding, infection, sepsis, perforation, need for more surgery and . He will have an ASA of 3. Charges/Coding Visit Charges Inpatient E&M: 34777 Init Hosp L3 01/05/25 1950 <Electronically signed by Paulino Friend DO> Cosigner Signature (if applicable): CC: Dr. Lorraine Mena MD~ Signed [facility] Work Phone: 1(847) 304-994007-20-2025 History and physical note Author Frankie Galindo [facility] Note Date/Time January 05, 2025 2:02 pm [facility] Medical Records Department [address] [place] [address] H&P Exam - Hospitalist 01/05/25 1336 MR#: [id number] Acct: [id number] Name: PEDRO PABLO SIERRA Rep #:[id number] : 1950 74 From: Frankie Galindo MD PCP: Dr. Lorraine Mena MD Status:A DM IN Location: [place] [address] HPI - General General Date of Admission: 01/05/25 Date of Service: 01/05/25 Chief Complaint: Suspected PEG tomorrow found HPI Narrative PEDRO PABLO SIERRA, is a 74 M with recent diagnosis of acute left MCA CVA [facility] to a jail facility. Patient had a PEG tube placed [...] to a monitored bed for further management [facility] Medical History Acute CVA (cerebrovascular accident) Aphasia [...] 76.7 H, Lymph % (Auto) 14.2 L, Bee % (Auto) 7.0, Eos % (Auto) 1.2, [...] IMPRESSION: COPD. No acute findings. Reading Location: [id number] KUB X-Ray 01/05/25 13:02 IMPRESSION: A PEG tube tip is projected in the region of the stomach. Contrast material is identified within the stomach. There is no extravasation of the contrast. 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 Was [...] ? Currently on apixaban CODE STATUS from [facility] documentation DNR CCA no intubation reordered Time spent in the patient's overall evaluation,decision-making process, review of diagnostic data, adjustment of management, discussion with other providers, nursing nursing and ancillary staff involved in patient's care documentation, 78 Minutes Charges/Coding Visit Charges Inpatient E&M: 31253 Init Hosp L3 01/05/25 1402 <Electronically signed by Frankie Galindo MD> Cosigner Signature (if applicable): CC: Dr. Frankie Galindo MD; Dr. Lorraine Mena MD~ Signed [facility] Work Phone: 1(830) 991-226107-20-2025 Discharge summary Author Fco Monroy [facility] Note Date/Time January 05, 2025 1:41 pm [facility] Medical Records Department [address] [place] [address] Emergency Department Summary 01/05/25 MR#: [id number] Acct: [id number] Name: PEDRO PABLO SIERRA Rep #:[id number] : 1950 74 From: Fco Monroy MD [...] sent in because of malfunctioning gastrostomy tube. Accountant Controller states he was sent in for hypertension. [...] Prior similar symptoms: No Recent Illness/Hospitalization: Yes [facility] Medical History Acute CVA (cerebrovascular accident) Aphasia [...] 76.7 H Lymph % (Auto) 14.2 L Bee % (Auto) 7.0 Eos % (Auto) 1.2 [...] IMPRESSION: COPD. No acute findings. Reading Location: [facility] KUB X-Ray 01/05/25 13:02 IMPRESSION: A PEG tube tip is projected in the region of the stomach. Contrast material is identified within the stomach. There is no extravasation of the contrast. Reading Location: [facility] Radiology report was reviewed. Since there is [...] respiratory failure with hypoxia, Current use of shelter anticoagulation, CVA (cerebral vascular accident), COPD (chronic [...] MD [Primary Care Provider] - Print Language: Citizen Of [place] Disposition Disposition: Assisted Living What to do if you have Problems For any increased pain, shortness of breath, bleeding, nausea or vomiting, chestpain, or any unexpected problems, contact your Primary Care Provider. Call [facility] ([phone]) or report to the closest Emergency Room. Call 911 if necessary. 01/05/25 1341 <Electronically signed by Fco Monroy MD> Cosigner Signature (if applicable): CC: Dr. Lorraine Mena MD ~ Signed [facility] Work Phone: 1(498) 434-654107-20-2025 Discharge summary Author Fco Monroy [facility] Note Date/Time January 05, 2025 1:41 pm [facility] Medical Records Department [address] [place] [address] Emergency Department Summary 01/05/25 MR#: [id number] Acct: [id number] Name: PEDRO PABLO SIERRA Rep #:[id number] : 1950 74 From: Fco Monroy MD [...] sent in because of malfunctioning gastrostomy tube. Accountant Controller states he was sent in for hypertension. [...] similar symptoms: No Recent Illness/Hospitalization: Yes [facility] Medical History Acute CVA (cerebrovascular accident) Aphasia [...] 76.7 H Lymph % (Auto) 14.2 L Bee % (Auto) 7.0 Eos % (Auto) 1.2 [...] IMPRESSION: COPD. No acute findings. Reading Location: [id number] KUB X-Ray 01/05/25 13:02 IMPRESSION: A PEG tube tip is projected in the region of the stomach. Contrast material is identified within the stomach. There is no extravasation of the contrast. Reading Location: [id number] Radiology report was reviewed. Since there is [...] respiratory failure with hypoxia, Current use of long term care administrator anticoagulation, CVA (cerebral vascular accident), COPD (chronic [...] MD [Primary Care Provider] - Print Language: Citizen Of [place] Disposition Disposition: Assisted Living What to do if you have Problems For any increased pain, shortness of breath, bleeding, nausea or vomiting, chestpain, or any unexpected problems, contact your Primary Care Provider. Call [facility] ([phone]) or report to the closest Emergency Room. Call 911 if necessary. 01/05/25 1341 <Electronically signed by Fco Monroy MD> Cosigner Signature (if applicable): CC: Dr. Lorraine Mena MD ~ Signed [facility] Work Phone: 1(136) 521-844607-20-2025 Radiology Diagnostic study [facility]07-20-2025 Radiology Diagnostic study [facility]07-18-2025 Discharge summary [facility] Note Date/Time January 03, 2025 8:01 am [facility] Medical Records Department [address] [place] [address] Emergency Department Summary 01/03/25 MR#: [id number] Acct: [id number] Name: PEDRO PABLO SIERRA Rep #:[id number] : 1950 74 From: Arnulfo Zhao DO [...] with isopropanol, and inserted a replacement 20 Haitian gastrostomy tube with a 20 cc balloon [...] 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 skilled nursing states that this morning he fell out [...] further history based on his aphasia/mute status [facility] Medical History Acute CVA (cerebrovascular accident) Aphasia [...] the patient's PEG tube is a 20 Haitian. Therefore we will obtain a similar size [...] fall, PEG tube malfunction, Current use of long term care administrator anticoagulation, CVA (cerebral vascular accident), COPD (chronic [...] MD [Primary Care Provider] - Print Language: Citizen Of [place] What to do if you have Problems For any increased pain, shortness of breath, bleeding, nausea or vomiting, chestpain, or any unexpected problems, contact your Primary Care Provider. Call [facility] ([phone]) or report to the closest Emergency Room. Call 911 if necessary. 01/03/25 0658 <Electronically signed by Arnulfo Zhao DO> Cosigner Signature (if applicable): CC: Dr. Daija Morton MD ~ Signed [facility] Work Phone: 1(561) 404-574407-18-2025 Radiology Diagnostic study [facility]07-18-2025 Radiology Diagnostic study [facility]07-18-2025 Radiology Diagnostic study [facility] 01-03-2025 Radiology Diagnostic study [facility]07-10-2025 Discharge summary Author Shilpa Contreras [facility] Note Date/Time December 26, 2024 3:43 pm [facility] Medical Records Department [address] [place] [address] Discharge Summary 12/26/24 1533 MR#: [id number] Acct: [id number] Name: PEDRO PABLO SIERRA Shannan Rep #:[id number] : 1950 74 From: Shilpa Contreras MD PCP: Dr. Daija Morton MD Status:ADM I N Location: [place] [address] Providers Date of Admission: 12/18/24 Date of [...] he had reported lacking healthcare power of real estate attorney and living will but had noted [...] Acute COPD Exacerbation who re-presentED to the [facility] ED on 12/17/24 w/ severe dysarthria [...] s/p PEG placement with following transition from MD ASA->eliquis, d/c IV keppra and resume liquid [...] 84.7 H, Lymph % (Auto) 6.5 L, Bee % (Auto) 7.8, Eos % (Auto) 0.2, [...] continued nutrition consultation and evaluation at the jail facility for ongoing assessments and alteration to [...] Privileges] - (Follow-up with Neurology, may see FOXING CLOSER within 2-4 weeks of discharge.) Disposition Disposition (needs filled in before D/C Order can be placed): [facility] Charges/Coding Visit Charges Inpatient E&M: 69966 Disch Hosp >30min 12/26/24 1543 <Electronically signed by Shilpa Contreras MD> Cosigner Signature (if applicable): CC: Dr. Shilpa Contreras MD; Dr. Daija Morton MD~ Signed [facility] Work Phone: 1(501) 542-867907-10-2025 [facility]07-10-2025 Telephone encounter Note* Telephone Encounter - Anjel Braga APRN.CNP - 12/26/2024 3:13 PM EDT Admitted to hospital. Will review further at follow up. Anjel Braga APRN.CNP [facility]07-10-2025 Miscellaneous Notes* Telephone Encounter - Anjel Braga APRN.CNP - 12/26/2024 3:13 PM EDT Admitted to hospital. Will review further at follow up. Anjel Braga APRN.CNP [facility] Progress note Author Shilpa Contreras [facility] Note Date/Time December 26, 2024 12:3 1pm [facility] Medical Records Department [address] [place] [address] Progress Note - Hospitalist 12/26/24 0700 MR#: [id number] Acct: [id number] Name: PEDRO PABLO SIERRA Rep #:[id number] : 1950 74 From: Shilpa Contreras MD PCP: Dr. Daija Morton MD Status:ADM I N Location: [place] [address] Reason for Visit Reason for Visit: Diagnoses Cerebral infarction, unspecified (12/18/24) Facial weakness (12/18/24) Aphasia (12/18/24) Subjective Subjective Patient with no acute events overnight per nursing report. Blood pressure has vacillated but improved with initiation of low-dose hydralazine per PEG. Given continued clinical stability and at this point only awaiting jail facility discussed with nursing staff and patient [...] Acute COPD Exacerbation who re-presents to the [facility] ED on 12/17/24 w/ severe dysarthria [...] s/p PEG placement with following transition from MD ASA->eliquis,d/c IV keppra and resume liquid carbamazepine, [...] he had reported lacking healthcare power of real estate attorney and living will but had noted he would wanthis ex- Joseph be his medical decision-maker at that time if absolutely necessary. Full Code status. Charges/Coding Visit Charges Inpatient E&M: 41293 Subs Hosp L2 NIHSS NIHSS Nursing Documentation NIHSS Nursing Documentation: NIHSS: Ischemic Stroke/TIA Start: 12/17/24 18:52 Text: For PCU Patients: NIH and Neuro Check every 4 Status: Complete hours, PRN and with change in RN caregiver. Freq: Q12 Protocol: Activity Type Activity Date Activity User E-sign Co-sign Detail Recorded Client Recorded Date Recorded By Document 12/22/24 08:15 DS [id number] 12/22/24 08:19 DS 12/22/24 08:15 NIH Stroke [...] Cosigner Signature (if applicable): CC: ~ Signed [facility] Work Phone: 1(233) 741-782307-09-2025 Progress note Author Shilpa Contreras [facility] Note Date/Time December 25, 2024 1:49p m [facility] Medical Records Department [address] [place] [address] Progress Note - Hospitalist 12/25/24 0652 MR#: [id number] Acct: [id number] Name: PEDRO PABLO SIERRA Rep #:[id number] : 1950 74 From: Shilpa Contreras MD PCP: Dr. Daija Morton MD Status:ADM I N Location: [place] [address] Reason for Visit Reason for Visit: Diagnoses [...] 82.3 H, Lymph % (Auto) 8.0 L, Bee % (Auto) 8.4, Eos % (Auto) 0.3, [...] Acute COPD Exacerbation who re-presents to the [facility] ED on 12/17/24 w/ severe dysarthria [...] s/p PEG placement with following transition from MD ASA->eliquis,d/c IV keppra and resume liquid carbamazepine, [...] he had reported lacking healthcare power of real estate attorney and living will but had noted he would wanthis ex- Joseph be his medical decision-maker at that time if absolutely necessary. Full Code status. Charges/Coding Visit Charges Inpatient E&M: 64800 Subs Hosp L2 NIHSS NIHSS Nursing Documentation NIHSS Nursing Documentation: NIHSS: Ischemic Stroke/TIA Start: 12/17/24 18:52 Text: For PCU Patients: NIH and Neuro Check every 4 Status: Complete hours, PRN and with change in RN caregiver. Freq: Q12 Protocol: Activity Type Activity Date Activity User E-sign Co-sign Detail Recorded Client Recorded Date Recorded By Document 12/22/24 08:15 DS [id number] 12/22/24 08:19 DS 12/22/24 08:15 NIH Stroke [...] Cosigner Signature (if applicable): CC: ~ Signed [facility] Work Phone: 1(908) 640-588207-08-2025 Progress note Author Paulino Friend [facility] Note Date/Time December 24, 2024 5:58p m [facility] Medical Records Department [address] [place] [address] Progress Note 12/24/24 1755 MR#: [id number] Acct: [id number] Name: PEDRO PABLO SIERRA Rep #:[id number] : 1950 74 From: Paulino Henderson DO PCP: Dr. Daija Morton MD Status:ADM I N Location: [place] [address] Progress Note Patient is still tolerating PEG [...] and anticoagulation therapy. Visit Charges Inpatient E&M: 81039 Subs Hosp L2 12/24/244 <Electronically signed by Paulino Henderson DO> Paulino Henderson DO Cosigner Signature (if applicable): CC: ~ Signed [facility] Work Phone: [phone]) 323-150307-08-2025 Discharge summary Author Shilpa Contreras [facility] Note Date/Time December 24, 2024 5:11p m [facility] Medical Records Department [address] [place] [address] Transfer to Extended Care MR#: [id number] Acct: [id number] Name: PEDRO PABLO SIERRA Rep #:[id number] : 1950 74 From: Shilpa Contreras MD PCP: Dr. Daija Morton MD Status:ADM I N Certification of patient admission REQUIRED AT TIME OF ADMISSION. I CERTIFY THAT POST-HOSPITAL ECF SERVICES ARE REQUIRED TO BE GIVEN ON AN IN-PATIENT BASIS BECAUSE OF THE ABOVE NAMED PATIENT'S NEED FOR FDC CARE ON A CONTINUING BASIS FOR THE [...] Acute COPD Exacerbation who re-presents to the [facility] ED on 12/17/24 w/ severe dysarthria [...] s/p PEG placement thus will transition from MD ASA->eliquis, d/c IV keppra and resume liquid [...] he had reported lacking healthcare power of real estate attorney and living will but had noted [...] advanced diet as tolerated to cardiac per PATROL CAPTAIN recommendations. 2. Will order to start at [...] continued nutrition consultation and evaluation at the jail facility for ongoing assessments and alteration to [...] Privileges] - (Follow-up with Neurology, may see FOXING CLOSER within 2-4 weeks of discharge.) Disposition Disposition (needs filled in before D/C Order can be placed): [facility] 12/24/24 1711 <Electronically signed by Shilpa Contreras MD> Cosigner Signature (if applicable): CC: Daylin Schmitt; Gogo Gill MD; Chrystal Collier MD; Dr. Paul Yang MD;Dr. Roman Patel DO; Dr. Aung Peres MD; Dr. Daija Morton MD; Dr. Ryan Vargas MD; Dr. Lisha Talamantes DO; Jo Hughes MD; Luan Mcgraw MD; DO Kerri; Angelo Wiley MD; Neelam Almendarez DO ~ [facility] Work Phone: 1([phone]) 385-821907-08-2025 Progress note Author Maya [facility] Note Date/Time December 24, 2024 2:56p m [facility] Medical Records Department [address] [place] [address] Progress Note - Neurology 12/24/24 1451 MR#: [id number] Acct: [id number] Name: PEDRO PABLO SIERRA Rep #:[id number] : 1950 74 From: Maya Talamantes MD PCP: Dr. Daija Morton MD Status:ADM I N Location: [place] [address] Objective Data Objective Data Vital Signs: Vital [...] 82.4 H, Lymph % (Auto) 8.5 L, Bee % (Auto) 7.7, Eos % (Auto) 0.4, [...] on keppra, PVD, and CDwho presented to [facility] ED on 12/17/2024 with dysarthria and [...] bc patient does not cooperate- swats the health technician hearing away. Neurological examination limited by decreased mental [...] Date Recorded By Document 12/22/24 08:15 DS [id number] 12/22/24 08:19 DS 12/22/24 08:15 NIH Stroke [...] Cosigner Signature (if applicable): CC: ~ Signed [facility] Work Phone: 1(299) 393-674307-08-2025 Progress note Author Shilpa Contreras [facility] Note Date/Time December 24, 2024 2:46p m [facility] Medical Records Department [address] [place] [address] Progress Note - Hospitalist 12/24/24705 MR#: [id number] Acct: [id number] Name: PEDRO PABLO SIERRA Rep #:[id number] : 1950 74 From: Shilpa Contreras MD PCP: Dr. Daija Morton MD Status:ADM I N Location: [place] [address] Reason for Visit Reason for Visit: Diagnoses [...] 82.4 H, Lymph % (Auto) 8.5 L, Bee % (Auto) 7.7, Eos % (Auto) 0.4, [...] Acute COPD Exacerbation who re-presents to the [facility] ED on 12/17/24 w/ severe dysarthria [...] s/p PEG placement thus will transition from MD ASA->eliquis, d/c IV keppra and resume liquid carbamazepine,transition to HTN regimen per PEG, addback statin per PEG. Awaiting jail facility placement pre-CERT for transition as clinically [...] he had reported lacking healthcare power of real estate attorney and living will but had noted he would wanthis ex- Joseph be his medical decision-maker at that time if absolutely necessary. Patient and daughter have been working with healthcare team closely and patient is maintained full code at this time. Charges/Coding Visit Charges Inpatient E&M: 51926 Subs Hosp L3 NIHSS NIHSS Nursing Documentation NIHSS Nursing Documentation: NIHSS: Ischemic Stroke/TIA Start: 12/17/24 18:52 Text: For PCU Patients: NIH and Neuro Check every 4 Status: Complete hours, PRN and with change in RN caregiver. Freq: Q12 Protocol: Activity Type Activity Date Activity User E-sign Co-sign Detail Recorded Client Recorded Date Recorded By Document 12/22/24 08:15 DS [id number] 12/22/24 08:19 DS 12/22/24 08:15 NIH Stroke [...] Cosigner Signature (if applicable): CC: ~ Signed [facility] Work Phone: 1(579) 156-867007-08-2025 Telephone encounter Note* Telephone Encounter - Daija Morton MD - 12/24/2024 2:09 PM EDT Noted. Daija Tripp MD [facility]07-08-2025 Miscellaneous Notes* Telephone Encounter - Daija Morton MD - 12/24/2024 2:09 PM EDT Noted. Daija Tripp MD * Telephone Encounter - Kelly Zelaya RN - 12/17/2024 2:20 PM [address]T [address] [facility] called in to give an update [...] Zelaya RN [facility] Consult note Author Kyaw Borrego [facility] Note Date/Time December 23, 2024 3:51p [facility] Medical Records Department [address] [place] [address] Anesthesia Postop Eval II 12/23/24 1551 MR#: [id number] Acct: [id number] Name: PEDRO PABLO SIERRA Rep #:[id number] : 1950 74 From: Kyaw Borrego MD PCP: Dr. Daija Morton MD Status:ADM I N Y Race: C Location: [place] [address] 1-1 Anesthesia Postop Eval I Sum Postop Eval Completion status Anesthesia document: Postop Eval 1 completed: Yes Anesthesia Postop Eval I Summary Anesthesia Postop Eval I Summary: Anesthesia Postop Eval I: Assessment Summary Airway patent Yes 12/23/24 15:30 PHYSICAL DIRECTOR.CSIR Spontaneous unlabored Yes 12/23/24 15:30 PHYSICAL DIRECTOR.CSIR respirations Mental status nausea No 12/23/24 15:30 PHYSICAL DIRECTOR.CSIR Vomiting No 12/23/24 15:30 PHYSICAL DIRECTOR.CSIR Anesthesia Postop Eval I: Fluid Summary Crystalloid volume administer 200 12/23/24 15:30 PHYSICAL DIRECTOR.CSIR (ml) Colloids volume administered ( ml) Blood Product volume administered (ml) Total IV fluid infused 200 12/23/24 15:30 PHYSICAL DIRECTOR.CSIR Anesthesia Postop Eval I: Summary Notes Anesthesia Complication No 12/23/24 15:30 PHYSICAL DIRECTOR.CSIR Anesthesia Complication Comment: Post-operative progress note Anesthesia: Postop Eval II Evaluation Mental status: Awake Pain Level: 0 nausea: No Vomiting: No 12/23/24 1551 <Electronically signed by Kyaw Borrego MD > Date _ Kyaw Ramirezigner Signature: Date CC: ~ Signed [facility] Work Phone: 1(416) 265-281507-07-2025 Consult note Author [facility] Note Date/Time December 23, 2024 3:32p m [facility] Medical Records Department [address] [place] [address] Anesthesia Postop Eval I 12/23/24 1530 MR#: [id number] Acct: [id number] Name: PEDRO PABLO SIERRA Rep #:[id number] : 1950 74 From: Rocío Barrios CRNA PCP: Dr. Daija Morton MD Status:ADM I N Y Race: C Location: [place] [address] 06-19 Anesthesia: Postop Eval I Current Vital [...] 12/23/24 1532 <Electronically signed by Rocío smith PHYSICAL DIRECTOR> Date _ Rocío Barrios CRNA Cosigner Signature: Date CC: ~ Signed [facility] Work Phone: 1(104) 764-377007-07-2025 Progress note Author Shilpa Contreras [facility] Note Date/Time December 23, 2024 3:24p m [facility] Medical Records Department [address] [place] [address] Progress Note - Hospitalist 12/23/24 0719 MR#: [id number] Acct: [id number] Name: PEDRO PABLO SIERRA Rep #:[id number] : 1950 74 From: Shilpa Contreras MD PCP: Dr. Daija Morton MD Status:ADM I N Location: [place] [address] Reason for Visit Reason for Visit: Diagnoses [...] Acute COPD Exacerbation who re-presents to the [facility] ED on 12/17/24 w/ severe dysarthria [...] Acute COPD Exacerbation who re-presents to the [facility] ED on 12/17/24 w/ severe dysarthria [...] prophylaxis. Once patient requires PEG tube and jail facility placement is pre-CERT obtained will transition [...] DVT prophylaxis: As noted currently maintained on MD aspirin therapy, planinitiation of Eliquis therapy following PEG tube placement likely 12/25/2019 5 AM. #17. CODE status: From previous discussions with patient he had reported lacking healthcare power of real estate attorney and living will but had noted he would wanthis ex- Joseph be his medical decision-maker at that time if absolutely necessary. Patient and daughter have been working with healthcare team closely and patient is maintained full code at this time. Charges/Coding Visit Charges Inpatient E&M: 86669 Subs Hosp L3 NIHSS NIHSS Nursing Documentation NIHSS Nursing Documentation: NIHSS: Ischemic Stroke/TIA Start: 12/17/24 18:52 Text: For PCU Patients: NIH and Neuro Check every 4 Status: Complete hours, PRN and with change in RN caregiver. Freq: Q12 Protocol: Activity Type Activity Date Activity User E-sign Co-sign Detail Recorded Client Recorded Date Recorded By Document 12/22/24 08:15 DS [id number] 12/22/24 08:19 DS 12/22/24 08:15 NIH Stroke [...] Rasheeda Signature (if applicable): CC: ~ Signed [facility] Work Phone: 1(713) 401-207207-07-2025 Procedure [facility] 12-23-2024 Procedure [facility]07-07-2025 Progress note Author Paulino Friend [facility] Note Date/Time December 23, 2024 2:46p m [facility] Medical Records Department [address] [place] [address] Progress Note 12/23/24 1445 MR#: [id number] Acct: [id number] Name: PEDRO PABLO SIERRA Rep #:[id number] : 1950 74 From: Paulino Henderson DO PCP: Dr. Daija Morton MD Status:ADM I N Location: [place] [address] Progress Note Patient with esophageal dysphagia. She [...] ASA of 3. Visit Charges Inpatient E&M: 36636 Subs Hosp L2 12/23/24 1446 <Electronically signed by Paulino Friend DO> Paulino Friend DO Cosigner Signature (if applicable): CC: ~ Signed [facility] Work Phone: 1(418) 831-987307-07-2025 Consult note Author Kyaw Borrego [facility] Note Date/Time December 23, 2024 2:02p m [facility] Medical Records Department [address] [place] [address] Pre-Anesthesia Evaluation 12/23/24 1400 MR#: [id number] Acct: [id number] Name: PEDRO PABLO SIERRA Rep #:[id number] : 1950 74 From: Kyaw Borrego MD PCP: Dr. Daija Morton MD Status:ADM I N Y Race: C Location: [place] [address] 1-1 ASA Classification* ASA Classification ASA Classification: [...] PEG placement. 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 - graphic art designer: Anesthesia History - graphic art designer Hx Hospitalization Yes 08/08/20 16:59 Any Problems [...] take am of surgery PONV PONV - graphic art designer: PONV - graphic art designer Female HX of Motion Sickness HX of N/V After Surgery Non-Smoker Duration of Surgery greater than 60 minutes Number of Risk Factors PONV Score Height & Weight Height & Weight: Anesthesia: Height & Weight Height 5 ft 8 in 12/23/24 09:50 Weight: 73 kg 12/23/24 09:50 Body Mass Index (BMI) 24.5 12/23/24 09:00 Respiratory Assessment Respiratory Assessment - graphic art designer: Respiratory Tract Infection Hx - graphic art designer Hx Respiratory Tract Infection No 12/23/24 09:15 STOP Sleep Apnea STOP Sleep Apnea - graphic art designer: STOP Sleep Apnea - graphic art designer Hx Hypertension Yes 12/23/24 09:06 Hx Sleep [...] Tobacco Use History Tobacco Use History - graphic art designer: Tobacco Use History - graphic art designer Tobacco Use Cigarettes 12/23/24 09:06 Smoking Status Current every day smoker 12/23/24 09:06 Hx Tobacco Use Yes 12/17/24 20:07 Years Smoking Packs Smoked per Day Smoking Cessation Date was within the last 15 years Hx Smoking Cessation Date Hx Smoking Cessation No 12/23/24 09:06 Counseling Hematologic Medial History Hematologic Hx - graphic art designer: Hematologic Medical Hx - medical authorization specialist Hx of Blood Transfusion Hx of Transfusion in last 3 Months Date of Last Transfusion (if within last 3 months) Ever experience any problems with transfusion(s)? Specify any problems Hx of Preganancy in last 3 Months Nurse Filling Out Transfusion & Questions: Date: Time: Patient unable to answer at Yes 12/17/24 20:07 this time (ie. confused, unrespo /Reproduction History /Reproductive History - graphic art designer: /Reproductive Hx- graphic art designer Hx Now Gestational Age (in weeks): EDC: [...] mls @ 15 mls/hr 12/17/24 19:51 IV .[id number] PRN Saline Flush Sodium Chloride 250 mls @ 15 mls/hr 12/17/24 19:51 IV .[id number] PRN Additional IVPB Infusion Levetiracetam 1,000 mg in 100 mls @ 400 mls/hr 12/17/24 22:00 12/23/24 09:45 IV Infused Q12 LEON Infusion Pantoprazole Sodium 40 mg/ 100 mls @ 300 mls/hr 12/19/24 10:00 12/23/24 09:26 Sodium Chloride IV Infused Q24 LEON Infusion Lactated Ringer's 1,000 mls @ 75 mls/hr 12/18/24 15:30 12/23/24 13:10 IV 0 mls/hr .[id number] LEON Infusion Thiamine HCl 250 mg/ Sodium [...] 40 Mg Tablet PO Not Given DAILY [facility] Senna/Docusate Sodium 1 tablet 12/17/24 18:52 Senna/Docusate Sodium 1 Tablet PO BID PRN PRN Constipation Sertraline HCl 100 mg 12/18/24 10:00 12/18/24 09:52 Sertraline 100 Mg Tablet PO Not Given DAILY [facility] Sodium Chloride 10 - [...] MD Cosigner Signature: Date CC: ~ Signed [facility] Work Phone: 1(169) 419-973507-07-2025 Hospital Discharge instructionsAdditional Instructions ADDITIONAL DISCHARGE INSTRUCTIONS/INFORMATION: [...] continued nutrition consultation and evaluation at the jail facility for ongoing assessments and alteration to [...] which appears recent baseline. Date of Discharge: 12/26/24[facility] Work Phone: 1(386) 628-137707-06-2025 Progress note Author Lisha Talamantes [facility] Note Date/Time December 22, 2024 3:35p gabino [facility] Medical Records Department [address] [place] [address] Progress Note - Hospitalist 12/22/24 1534 MR#: [id number] Acct: [id number] Name: PEDRO PABLO SIERRA R Rep #:[id number] : 1950 74 From: Lisha Talamantes DO PCP: Dr. Daija Morton MD Status:ADM I N Location: [place] [address] Hospitalist Note Extensive conversation with POA's at [...] Cosigner Signature (if applicable): CC: ~ Signed [facility] Work Phone: 1([phone]) 449-424307-06-2025 Progress note Author Lisha Talamantes [facility] Note Date/Time December 22, 2024 1:13p m [facility] Medical Records Department [address] [place] [address] Progress Note - Hospitalist 12/22/24 0733 MR#: [id number] Acct: [id number] Name: PEDRO PABLO SIERRA R Rep #:[id number] : 1950 74 From: Lisha Talamantes DO PCP: Dr. Daija Morton MD Status:ADM I N Location: [place] [address] Reason for Visit Reason for Visit: facial [...] Full code Charges/Coding Visit Charges Inpatient E&M: 20184 Subs Hosp L2 NIHSS NIHSS Nursing Documentation NIHSS Nursing Documentation: NIHSS: Ischemic Stroke/TIA Start: 12/17/24 18:52 Text: For PCU Patients: NIH and Neuro Check every 4 Status: Active hours, PRN and with change in RN caregiver. Freq: Q12 Protocol: Activity Type Activity Date Activity User E-sign Co-sign Detail Recorded Client Recorded Date Recorded By Document 12/21/24 21:20 [id number] 12/21/24 21:19 12/21/24 21:20 NIH Stroke Scale [...] Cosigner Signature (if applicable): CC: ~ Signed [facility] Work Phone: 1(163) 123-897307-06-2025 Progress note Author Maya Talamantes [facility] Note Date/Time December 22, 2024 9:18a m [facility] Medical Records Department [address] [place] [address] Progress Note - Neurology 12/22/24913 MR#: [id number] Acct: [id number] Name: PEDRO PABLO SIERRA Rep #:[id number] : 1950 74 From: Maya Talamantes MD PCP: Dr. Daija Morton MD Status:ADM I N Location: [place] [address] Objective Data Objective Data Vital Signs: Vital [...] on keppra, PVD, and CDwho presented to [facility] ED on 12/17/2024 with dysarthria and [...] Continue daily anti-platelet med (Asa) for now. 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 [...] Date Recorded By Document 12/22/24 08:15 DS [id number] 12/22/24 08:19 DS 12/22/24 08:15 NIH Stroke [...] Cosigner Signature (if applicable): CC: ~ Signed [facility] Work Phone: [phone] 310-241607-05-2025 Progress note Author Maya Talamantes [facility] Note Date/Time December 21, 2024 1:50p m [facility] Medical Records Department [address] [place] [address] Progress Note - Neurology 12/21/24 1336 MR#: [id number] Acct: [id number] Name: PEDRO PABLO SIERRA Rep #:[id number] : 1950 74 From: Maya Talamantes MD PCP: Dr. Daija Morton MD Status:ADM I N Location: [place] [address] Objective Data Objective Data Vital Signs: Vital [...] 75.1 H, Lymph % (Auto) 14.2 L, Bee % (Auto) 8.5, Eos % (Auto) 1.2, [...] on keppra, PVD, and CDwho presented to [facility] ED on 12/17/2024 with dysarthria and [...] Continue daily anti-platelet med (Asa) for now. [facility] will need AC for Afib stroke prevention [...] Date Recorded By Document 12/21/24 08:35 DS [id number] 12/21/24 11:09 DS 12/21/24 08:35 NIH Stroke [...] Cosigner Signature (if applicable): CC: ~ Signed [facility] Work Phone: 1([phone]) 208-977507-05-2025 Progress note Author Lisha Talamantes [facility] Note Date/Time December 21, 2024 1:11p m [facility] Medical Records Department [address] [place] [address] Progress Note - Hospitalist 12/21/24 1243 MR#: [id number] Acct: [id number] Name: PEDRO PABLO SIERRA Rep #:[id number] : 1950 74 From: Lisha Talamantes DO PCP: Dr. Daija Morton MD Status:ADM I N [facility] Reason for Visit Reason for [...] 75.1 H, Lymph % (Auto) 14.2 L, Bee % (Auto) 8.5, Eos % (Auto) 1.2, [...] Full code Charges/Coding Visit Charges Inpatient E&M: 80832 Subs Hosp L2 NIHSS NIHSS Nursing Documentation NIHSS Nursing Documentation: NIHSS: Ischemic Stroke/TIA Start: 12/17/24 18:52 Text: For PCU Patients: NIH and Neuro Check every 4 Status: Active hours, PRN and with change in RN caregiver. Freq: Q12 Protocol: Activity Type Activity Date Activity User E-sign Co-sign Detail Recorded Client Recorded Date Recorded By Document 12/21/24 08:35 DS [id number] 12/21/24 11:09 DS 12/21/24 08:35 NIH Stroke [...] Cosigner Signature (if applicable): CC: ~ Signed [facility] Work Phone: [phone] 223-252407-04-2025 Progress note Author Lisha Talamantes [facility] Note Date/Time December 20, 2024 12:05 pm [facility] Medical Records Department [address] [place] [address] Progress Note - Hospitalist 12/20/24 0717 MR#: [id number] Acct: [id number] Name: PEDRO PABLO SIERRA Rep #:[id number] : 1950 74 From: Lisha Talamantes DO PCP: Dr. Daija Morton MD Status:ADM I N Location: [place] [address] Reason for Visit Reason for Visit: Difficulty [...] 79.1 H, Lymph % (Auto) 9.9 L, Bee % (Auto) 8.5, Eos % (Auto) 1.2, [...] in the right maxillary sinus. [facility] Const alert, no apparent [...] Full code Charges/Coding Visit Charges Inpatient E&M: 41338 Subs Hosp L2 NIHSS NIHSS Nursing Documentation NIHSS Nursing Documentation: NIHSS: Ischemic Stroke/TIA Start: 12/17/24 18:52 Text: For PCU Patients: NIH and Neuro Check every 4 Status: Active hours, PRN and with change in RN caregiver. Freq: [id number] Protocol: Activity Type Activity Date Activity User E-sign Co-sign Detail Recorded Client Recorded Date Recorded By Document 12/20/24 05:53 MB [id number] 12/20/24 05:55 MB 12/20/24 05:53 NIH Stroke [...] Cosigner Signature (if applicable): CC: ~ Signed [facility] Work Phone: [phone] 269-839907-04-2025 Progress note Author René Reno [facility] Note Date/Time December 20, 2024 11:53 am [facility] Medical Records Department [address] [place] [address] Progress Note - Neurology 12/20/24 1107 MR#: [id number] Acct: [id number] Name: PEDRO PABLO SIERRA Rep #:[id number] : 1950 74 From: René Damon PCP: Dr. Daija Morton MD Status:ADM I N Location: [place] [address] Objective Data Objective Data Vital Signs: Vital [...] 79.1 H, Lymph % (Auto) 9.9 L, Bee % (Auto) 8.5, Eos % (Auto) 1.2, [...] awaiting PEG tube on Monday, failed with PATROL CAPTAIN. No NGT. EEG Results Procedure Details EEG [...] is controlled. Would prefer a DOAC for mcfp AC. I would recommend re-evaluation of candiacy for AC despite the fall risk as the patient has an high risk of future embolic events ([id number] 10, HASBLED 4). His risk of a [...] goal <7, BP goal is 120/80 -recommend PT/OT/PATROL CAPTAIN consult. Will likely need PEG. consider NGT for alterative access in the meantime #seizure -recommend routine EEG as his aphasia does seen to be out of proportion to his infarct burden. would want to ensure no NCSE -it appears he was switched from CBZ to keppra during this admission. Ok to continue keppra shelter if tolerating without adverse effects or recurrent seizures. ] NIHSS NIHSS Nursing Documentation NIHSS Nursing Documentation: NIHSS: Ischemic Stroke/TIA Start: 12/17/24 18:52 Text: For PCU Patients: NIH and Neuro Check every 4 Status: Active hours, PRN and with change in RN caregiver. Freq: Q12 Protocol: Activity Type Activity Date Activity User E-sign Co-sign Detail Recorded Client Recorded Date Recorded By Document 12/20/24 09:41 [id number] 12/20/24 09:46 12/20/24 09:41 NIH Stroke Scale [...] Cosigner Signature (if applicable): cc: ~* Signed [facility] Work Phone: 1(654) 374-195007-03-2025 Progress note Author Lisha Talamantes [facility] Note Date/Time December 19, 2024 4:09p m [facility] Medical Records Department [address] [place] [address] Progress Note - Hospitalist 12/19/24 0810 MR#: [id number] Acct: [id number] Name: PEDRO PABLO SIERRA Rep #:[id number] : 1950 74 From: Lisha Talamantes DO PCP: Dr. Daija Morton MD Status:ADM I N Location: [place] [address] Reason for Visit Reason for Visit: Difficulty [...] 81.3 H, Lymph % (Auto) 9.0 L, Bee % (Auto) 6.6, Eos % (Auto) 1.9, [...] right maxillary sinus. Reading Location: [facility] Physical Exam Const alert, no apparent distress [...] Full code Charges/Coding Visit Charges Inpatient E&M: 79118 Subs Hosp L2 NIHSS NIHSS Nursing Documentation NIHSS Nursing Documentation: NIHSS: Ischemic Stroke/TIA Start: 12/17/24 18:52 Text: For PCU Patients: NIH and Neuro Check every 4 Status: Active hours, PRN and with change in RN caregiver. Freq: [id number] Protocol: Activity Type Activity Date Activity User E-sign Co-sign Detail Recorded Client Recorded Date Recorded By Document 12/19/24 07:15 [id number] 12/19/24 07:43 12/19/24 07:15 NIH Stroke Scale [...] Cosigner Signature (if applicable): CC: ~ Signed [facility] Work Phone: 1(504) 429-802607-02-2025 Progress note Author Lisha Talamantes [facility] Note Date/Time December 18, 2024 2:59p m [facility] Medical Records Department [address] [place] [address] Progress Note - Hospitalist 12/18/24 1445 MR#: [id number] Acct: [id number] Name: PEDRO PABLO SIERRA Shannan Rep #:[id number] : 1950 74 From: Lisha Talamantes DO PCP: Dr. Daija Morton MD Status:ADM I NO Location: [place] [address] Reason for Visit Reason for Visit: Diagnoses [...] (Auto) 77.5 H, Lymph % (Auto) 12.1 L,Bee % (Auto) 7.8, Eos % (Auto) 1.1, [...] on 12/17/2024 at 4:35 p.m. Reading Location: [id number] Head/Neck CTA 12/17/24 15:53 IMPRESSION: Right ICA stenosis of 75%. Left ICA stenosis of 50%. Additional atherosclerosis as above. Biapical pulmonary scarring and emphysema. Reading Location: [id number] Chest X-Ray 12/17/24 15:54 IMPRESSION: Hyperaerated lungs which can suggest COPD. Stable scarring. Reading Location: [id number] Echocardiogram 12/18/24 07:27 Interpretation Summary Technically difficult [...] Full code Charges/Coding Visit Charges Inpatient E&M: 30974 Subs Hosp L2 NIHSS NIHSS Nursing Documentation NIHSS Nursing Documentation: NIHSS: Ischemic Stroke/TIA Start: 12/17/24 18:52 Text: For PCU Patients: NIH and Neuro Check every 4 Status: Active hours, PRN and with change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 Discharge summary Author Brody Maynard [facility] Note Date/Time September 02, 2024 3:0 9pm [facility] Medical Records Department [address] [place] [address] Discharge Summary 09/02/24 1459 MR#: [id number] Acct: [id number] Name: PEDRO PABLO SIERRA Rep #:[id number] : 1950 74 From: Brody Damon PCP: Dr. Dajia Morton MD Status:ADM I N Location: [facility] BA009-0 Providers Date of Admission: 08/27/24 Date of [...] in before D/C Order can be placed): [facility] Facility Charges/Coding Visit Charges Inpatient E&M: 98189 Disch Hosp >30min 09/02/24 1509 <Electronically signed by Brody Maynard MD> Cosigner Signature (if applicable): CC: Dr. Daija Morton MD; Dr. Brody Maynard MD~ Signed [facility] Work Phone: 1(711) 387-877203-17-2025 Consult note Author Shanell Hyatt [facility] Note Date/Time September 02, 2024 9:3 5pm [facility] Medical Records Department [address] [place] [address] Counseling Note - Pharmacy 09/02/24 1507 MR#: [id number] Acct: [id number] Name: PEDRO PABLO SIERRA Rep #:[id number] : 1950 74 From: Shanell Hyatt PCP: Dr. Daija Morton MD Status:ADM I N Y Location: [place] [address] Pharmacy [place] Med Reconciliation Pharmacy Service has [...] Signature (if applicable): Date CC: ~ Signed [facility] Work Phone: [phone] 216-177503-17-2025 Discharge summary Author Brody Maynard [facility] Note Date/Time September 02, 2024 2:5 8pm [facility] Medical Records Department [address] [place] [address] Transfer to [facility] MR#: [id number] Acct: [id number] Name: PEDRO PABLO SIERRA Rep #:[id number] : 1950 74 From: Brody Damon PCP: Dr. Daija Morton MD Status:ADM I N Certification of patient admission REQUIRED AT TIME OF ADMISSION. I CERTIFY THAT POST-HOSPITAL ECF SERVICES ARE REQUIRED TO BE GIVEN ON AN IN-PATIENT BASIS BECAUSE OF THE ABOVE NAMED PATIENT'S NEED FOR FDC CARE ON A CONTINUING BASIS FOR THE CONDITION(S) FOR WHICH HE/SHE WAS RECEIVING IN-PATIENT HOSPITAL SERVICES PRIOR TO HIS/HER TRANSFER TO THE [facility]. 09/02/24 1458<Electronically signed by Brody Maynard MD> [...] in before D/C Order can be placed): Correction Facility 09/02/24 3760 <Electronically signed by Brody Maynard MD> Cosigner Signature (if applicable): CC: Dr. Daija Morton MD; Dr. Lisha Talamantes DO; Dr. Celia Toribio MD; Dr. Ashley MD ~ [facility] Work Phone: [phone]) 874-391203-17-2025 Progress note Author [facility] Note Date/Time September 02, 2024 2:2 8pm [facility] Medical Records Department [address] [place] [address] Progress Note - Infect Disease 09/02/24 1425 MR#: [id number] Acct: [id number] Name: PEDRO PABLO SIERRA Rep #:[id number] : 1950 74 From: Elton pierce MD PCP: Dr. Daija Morton MD Status:ADM I N Location: [place] [address] Physical Exam Narrative C/o some dysuria. No [...] Cosigner Signature (if applicable): CC: ~ Signed [facility] Work Phone: 1(212) 483-917903-17-2025 Discharge summary [facility] Medical Records Department [address] [place] [address] Discharge Summary 09/02/24 1459 MR#: [id number] Acct: [id number] Name: PEDRO PABLO SIERRA Rep #:[id number] : 1950 74 From: Brody Damon PCP: Dr. Daija Morton MD Status:ADM I N Location: [place] [address]-1 Providers Date of Admission: 08/27/24 Date of [...] in before D/C Order can be placed): [facility] Facility Charges/Coding Visit Charges Inpatient E&M: 35878 Disch Hosp >30min 09/02/24 1509 Cosigner Signature (if applicable): CC: Dr. Daija Morton MD; Dr. Brody Maynard MD~ Signed [facility]03-17-2025 [facility] Discharge summary [facility] Medical Records Department [address] [place] [address] Transfer to [facility] MR#: [id number] Acct: [id number] Name: PEDRO PABLO SIERRA Rep #:[id number] : 1950 74 From: Brody Damon PCP: Dr. Daija Morton MD Status:ADM I N Certification of patient admission REQUIRED AT TIME OF ADMISSION. I CERTIFY THAT POST-HOSPITAL [facility] SERVICES ARE REQUIRED TO BE GIVEN ON AN IN-PATIENT BASIS BECAUSE OF THE ABOVE NAMED PATIENT'S NEED FOR FDC CARE ON A CONTINUING BASIS FOR THE CONDITION(S) FOR WHICH HE/SHE WAS RECEIVING IN-PATIENT HOSPITAL SERVICES PRIOR TO HIS/HER TRANSFER TO THE [facility]. 09/02/24 1458 Diet Diet Order/Speech Therapy: 08/25/24 [...] in before D/C Order can be placed): [facility] Facility 09/02/24 0008 Cosigner Signature (if applicable): CC: Dr. Daija Morton MD; Dr. Lisha Talamantes DO; Dr. Celia Toribio MD; Dr. Ashley MD ~ [facility]03-17-2025 Progress note [facility] Medical Records Department [address] [place] [address] Progress Note - Infect Disease 09/02/24 1425 MR#: [id number] Acct: [id number] Name: PEDRO PABLO SIERRA Rep #:[id number] : 1950 74 From: Elton pierce MD PCP: Dr. Daija Morton MD Status:ADM I N Location: [place] [address] Physical Exam Narrative C/o some dysuria. No [...] Cosigner Signature (if applicable): CC: ~ Signed [facility]03-16-2025 Progress note Author Celia Toribio [facility] Note Date/Time September 01, 2024 11: 27am [facility] Medical Records Department [address] [place] [address] Progress Note - Hospitalist 09/01/24 0758 MR#: [id number] Acct: [id number] Name: PEDRO PABLO SIERRA Rep #:[id number] : 1950 74 From: Celia Toribio MD PCP: Dr. Daija Morton MD Status:ADM I N Location: [place] [address] Reason for Visit Reason for Visit: Diagnoses [...] (Auto) 70.9 H, Lymph % (Auto) 20.9, Bee % (Auto) 6.2, Eos % (Auto) 0.4, [...] -08/29: Patient pending acceptance and pre-CERT for [facility], patient stable and willbe cleared [...] Toribio MD Charges/Coding Visit Charges Inpatient E&M: 01667 Subs Hosp L1 09/01/24 6051 <Electronically signed by Celia Toribio MD> Cosigner Signature (if applicable): CC: ~ Signed [facility] Work Phone: [phone] Progress note [facility] Medical Records Department [address] [place] [address] Progress Note - Hospitalist 09/01/24 0758 MR#: [id number] Acct: [id number] Name: PEDRO PABLO SIERRA Rep #:[id number] : 1950 74 From: Celia Toribio MD PCP: Dr. Daija Morton MD Status:ADM I N Location: [place] [address] Reason for Visit Reason for Visit: Diagnoses [...] %(Auto) 70.9 H, Lymph % (Auto) 20.9, Bee % (Auto) 6.2, Eos % (Auto) 0.4, [...] and DC plan in place -08/30: Awaiting [facility] and [facility] determinations about payee so that [...] Toribio MD Charges/Coding Visit Charges Inpatient E&M: 78614 Subs Hosp L1 09/01/24 1127 Cosigner Signature (if applicable): CC: ~ Signed [facility]03-15-2025 Progress note Author Celia Toribio [facility] Note Date/Time August 31, 2024 12: 30pm [facility] Medical Records Department [address] [place] [address] Progress Note - Hospitalist 08/31/24 0748 MR#: [id number] Acct: [id number] Name: ARIEL SIERRAJAYY Pierce Rep #:[id number] : 1950 74 From: Celia Toribio MD PCP: Dr. Daija Morton MD Status:ADM I N Location: [facility] JN822-7 Reason for Visit Reason for Visit: Diagnoses [...] documentation, 36minutes Charges/Coding Visit Charges Inpatient E&M: 86393 Subs Hosp L2 08/31/24 1230 <Electronically signed by Celia Toribio MD> Cosigner Signature (if applicable): CC: ~ Signed [facility] Work Phone: [phone]) 237-948203-15-2025 Progress note [facility] Medical Records Department [address] [place] [address] Progress Note - Hospitalist 08/31/24 0748 MR#: [id number] Acct: [id number] Name: PEDRO PABLO SIERRA Rep #:[id number] : 1950 74 From: Celia Toribio MD PCP: Dr. Daija Morton MD Status:ADM I N Location: [facility] ZU277-0 Reason for Visit Reason for Visit: Diagnoses [...] -08/29: Patient pending acceptance and pre-CERT for [facility], patient stable and willbe cleared for discharge once antibiotic and DC plan in place -08/30: Awaiting [facility] and [facility] determinations about payee so that [...] documentation, 36minutes Charges/Coding Visit Charges Inpatient E&M: 42294 Subs Hosp L2 08/31/24 1230 Cosigner Signature (if applicable): CC: ~ Signed [facility]03-14-2025 Consult note Author Elton Moore [facility] Note Date/Time August 30, 2024 1:4 6pm [facility] Medical Records Department [address] [place] [address] Consultation - Infectious Dx 08/30/24 1343 MR#: [id number] Acct: [id number] Name: PEDRO PABLO SIERRA Rep #:[id number] : 1950 74 From: Elton pierce MD PCP: Dr. Daija Morton MD Status:ADM I N Location: [place] [address] Assessment & Plan Assessment/Plan (1) Weakness: (2) [...] performed and neg except as noted above. [facility] Medical History Compression fx, lumbar spine Hypertension [...] (Auto) 64.8, Lymph % (Auto) 17.8 L, Bee % (Auto) 7.6, Eos % (Auto) 7.8 [...] applicable): CC: Dr. Daija Morton MD~ Signed [facility] Work Phone: [phone] 432-407103-14-2025 Consult note [facility] Medical Records Department [address] [place] [address] Consultation - Infectious Dx 08/30/24 1343 MR#: [id number] Acct: [id number] Name: PEDRO PABLO SIERRA Shannan Rep #:[id number] : 1950 74 From: Elton pierce MD PCP: Dr. Daija Morton MD Status:ADM I N Location: [place] [address] Assessment & Plan Assessment/Plan (1) Weakness: (2) [...] performed and neg except as noted above. [facility] Medical History Compression fx, lumbar spine Hypertension [...] %(Auto) 64.8, Lymph % (Auto) 17.8 L, Bee % (Auto) 7.6, Eos % (Auto) 7.8 [...] applicable): CC: Dr. Daija Morton MD~ Signed [facility]03-14-2025 Progress note Author Celia Toribio [facility] Note Date/Time August 30, 2024 11: 11am [facility] Medical Records Department [address] [place] [address] Progress Note - Hospitalist 08/30/24 0709 MR#: [id number] Acct: [id number] Name: PEDRO PABLO SIERRA Rep #:[id number] : 1950 74 From: Celia Toribio MD PCP: Dr. Daija Morton MD Status:ADM I N Location: [place] [address] Reason for Visit Reason for Visit: Diagnoses [...] (Auto) 64.8, Lymph % (Auto) 17.8 L, Bee % (Auto) 7.6, Eos % (Auto) 7.8 [...] -08/29: Patient pending acceptance and pre-CERT for [facility], patient stable and willbe cleared for discharge once antibiotic and DC plan in place -08/30: Awaiting [facility] and [facility] determinations about payee so that [...] documentation, 36minutes Charges/Coding Visit Charges Inpatient E&M: 16529 Subs Hosp L2 08/30/24 1111 <Electronically signed by Celia Toribio MD> Cosigner Signature (if applicable): CC: ~ Signed [facility] Work Phone: [phone] 163-520903-14-2025 Progress note [facility] Medical Records Department [address] [place] [address] Progress Note - Hospitalist 08/30/24 0709 MR#: [id number] Acct: [id number] Name: PEDRO PABLO SIERRA Rep #:[id number] : 1950 74 From: Celia Toribio MD PCP: Dr. Daija Morton MD Status:ADM I N Location: [place] [address] Reason for Visit Reason for Visit: Diagnoses [...] %(Auto) 64.8, Lymph % (Auto) 17.8 L, Bee % (Auto) 7.6, Eos % (Auto) 7.8 [...] documentation, 36minutes Charges/Coding Visit Charges Inpatient E&M: 83675 Subs Hosp L2 08/30/24 1111 Cosigner Signature (if applicable): CC: ~ Signed [facility]03-13-2025 Progress note Author Celia Toribio [facility] Note Date/Time August 29, 2024 5:2 5pm [facility] Medical Records Department [address] [place] [address] Progress Note - Hospitalist 08/29/24 0805 MR#: [id number] Acct: [id number] Name: PEDRO PABLO SIERRA Rep #:[id number] : 1950 74 From: Celia Toribio MD PCP: Dr. Daija Morton MD Status:ADM I N Location: [facility] FD759-3 Reason for Visit Reason for Visit: Diagnoses [...] % (Auto) 59.8, Lymph % (Auto) 22.3, Bee % (Auto) 8.0, Eos % (Auto) 8.2 [...] documentation, 35minutes Charges/Coding Visit Charges Inpatient E&M: 87923 Subs Hosp L2 08/29/24 1725 <Electronically signed by Celia Toribio MD> Cosigner Signature (if applicable): CC: ~ Signed [facility] Work Phone: 1(874) 967-917703-13-2025 Progress note [facility] Medical Records Department [address] [place] [address] Progress Note - Hospitalist 08/29/24 08 MR#: [id number] Acct: [id number] Name: PEDRO PABLO SIERRA Rep #:[id number] : 1950 74 From: Celia Toribio MD PCP: Dr. Daija Morton MD Status:ADM I N Location: [facility] FY689-5 Reason for Visit Reason for Visit: Diagnoses [...] % (Auto) 59.8, Lymph % (Auto) 22.3, Bee % (Auto) 8.0, Eos % (Auto) 8.2 [...] documentation, 35minutes Charges/Coding Visit Charges Inpatient E&M: 45133 Subs Hosp L2 08/29/24 4271 Cosigner Signature (if applicable): CC: ~ Signed [facility]03-12-2025 Progress note Author Celia Toribio [facility] Note Date/Time August 28, 2024 3:0 4pm [facility] Medical Records Department [address] [place] [address] Progress Note - Hospitalist 08/28/24 1458 MR#: [id number] Acct: [id number] Name: PEDRO PABLO SIERRA Rep #:[id number] : 1950 74 From: Celia Toribio MD PCP: Dr. Daija Morton MD Status:ADM I N Location: [place] [address] Reason for Visit Reason for Visit: Diagnoses [...] % (Auto) 55.6, Lymph % (Auto) 23.4, Bee % (Auto) 11.3 H, Eos % (Auto) [...] documentation, 35minutes Charges/Coding Visit Charges Inpatient E&M: 44187 Subs Hosp L2 08/28/24 9602 <Electronically signed by Celia Toribio MD> Cosigner Signature (if applicable): CC: ~ Signed [facility] Work Phone: [phone] 655-756403-12-2025 Progress note [facility] Medical Records Department [address] [place] [address] Progress Note - Hospitalist 08/28/24 4507 MR#: [id number] Acct: [id number] Name: PEDRO PABLO SIERRA Rep #:[id number] : 1950 74 From: Celia Toribio MD PCP: Dr. Daija Morton MD Status:ADM I N Location: [facility] PO848-5 Reason for Visit Reason for Visit: Diagnoses [...] % (Auto) 55.6, Lymph % (Auto) 23.4, Bee % (Auto) 11.3 H, Eos % (Auto) [...] COPD -Continue nebs #HX CAD/PAD/CVA -Continue home beta-ojel and Plavix and statin # History of [...] documentation, 35minutes Charges/Coding Visit Charges Inpatient E&M: 13620 Subs Hosp L2 08/28/24 1504 Cosigner Signature (if applicable): CC: ~ Signed [facility]03-11-2025 Evaluation note* Diagnosis Onset Date Resolution Status Admit Date Acute diarrhea acute August 6:22pm Debility acute August 27 6:22pm Weakness acute August 27 6:22pm 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 August 172024 6:22pm [facility] Work Phone: [phone] Evaluation note* Diagnosis Onset Date Resolution Status Admit Date Acute diarrhea resolved August 6:22pm Debility inactive August 27 6:22pm Failure to thrive inactive August 172024 6:22pm Weakness inactive August 27 6:22pm [facility] Work Phone: [phone]) 521-402603-11-2025 Evaluation note* Diagnosis Onset Date Resolution Status Admit Date Acute diarrhea resolved August 6:22pm Debility inactive August 27 6:22pm Failure to thrive inactive August 172024 6:22pm Weakness inactive August 27 6:22pm COPD exacerbation chronic December 132024 8:07pm [facility] Work Phone: [phone] 236-579503-11-2025 Evaluation note* Diagnosis Onset Date Resolution Status Admit Date Acute diarrhea resolved August 6:22pm Debility inactive August 27 6:22pm Failure to thrive inactive August 172024 6:22pm Weakness inactive August 27 6:22pm Acute on chronic respiratory failure with hypoxia and hypercapnia chronic December 13, 2024 8:07pm COPD exacerbation chronic December 132024 8:07pm [facility] Work Phone: [phone] Evaluation note* Diagnosis Onset Date Resolution Status [...] December 5:51pm Hypertension chronic December 17 5:51pm [facility] Work Phone: [phone]) 585-770703-11-2025 Evaluation note* Diagnosis Onset Date Resolution Status [...] 2 :58pm COPD exacerbation resolved December 2:58pm [facility] Work Phone: [phone] 272-802903-11-2025 Progress note Author Celia Toribio [facility] Note Date/Time August 27, 2024 4:1 3pm [facility] Medical Records Department [address] [place] [address] Progress Note - Hospitalist 08/27/241612 MR#: [id number] Acct: [id number] Name: PEDRO PABLO SIERRA Shannan Rep #:[id number] : 1950 74 From: Celia Toribio MD PCP: Dr. Daija Morton MD Status:ADM I NO Location: [place] [address] Hospitalist Note Repeat hemoglobin actually improved, suspect that this was then margin of bladder, will DC FOBT 08/27/241612 <Electronically signed by Celia Toribio MD> Cosigner Signature (if applicable): CC: ~ Signed [facility] Work Phone: [phone] 154-322503-11-2025 Progress note [facility] Medical Records Department [address] [place] [address] Progress Note - Hospitalist 08/27/241612 MR#: [id number] Acct: [id number] Name: PEDRO PABLO SIERRA R Rep #:[id number] : 1950 74 From: Celia Toribio MD PCP: Dr. Daija Morton MD Status:ADM I NO Location: [facility] GQ087-7 Hospitalist Note Repeat hemoglobin actually improved, suspect that this was then margin of bladder, will DC FOBT 08/27/24 1613 Cosigner Signature (if applicable): CC: ~ Signed [facility]03-11-2025 Progress note Author [facility] Note Date/Time August 27, 2024 1:3 2pm [facility] Medical Records Department [address] [place] [address] Progress Note - Hospitalist 08/27/24 1332 MR#: [id number] Acct: [id number] Name: PEDRO PABLO SIERRA R Rep #:[id number] : 1950 74 From: Celia Toribio MD PCP: Dr. Daija Morton MD Status:ADM I NO Location: [place] [address] Hospitalist Note UA abnormal and is suggestive of UTI and given this and patient suprapubic tenderness we will start patient on Rocephin and await urine culture 08/27/24 1332 <Electronically signed by Celia Toribio MD> Cosigner Signature (if applicable): CC: ~ Signed [facility] Work Phone: [phone]) 307-937303-11-2025 Progress note Author [facility] Note Date/Time August 27, 2024 12: 52pm [facility] Medical Records Department [address] [place] [address] Progress Note - Hospitalist 08/27/24 0831 MR#: [id number] Acct: [id number] Name: PEDRO PABLO SIERRA R Rep #:[id number] : 1950 74 From: Celia Toribio MD PCP: Dr. Daija Morton MD Status:ADM I NO Location: [facility] XU488-3 Reason for Visit Reason for Visit: Diagnoses [...] Neut % (Auto) 56.2, Lymph % (Auto) 23.0,Bee % (Auto) 13.1 H, Eos % (Auto) [...] documentation, 36minutes Charges/Coding Visit Charges Inpatient E&M: 82140 Subs Hosp L2 08/27/24 1252 <Electronically signed by Celia Toribio MD> Cosigner Signature (if applicable): CC: ~ Signed [facility] Work Phone: [phone]) 159-959903-11-2025 Progress note [facility] Medical Records Department [address] [place] [address] Progress Note - Hospitalist 08/27/24 1332 MR#: [id number] Acct: [id number] Name: PEDRO PABLO SIERRA Rep #:[id number] : 1950 74 From: Celia Toribio MD PCP: Dr. aDija Morton MD Status:ADM I NO Location: [facility] SG217-3 Hospitalist Note UA abnormal and is suggestive of UTI and given this and patient suprapubic tenderness we will startpatient on Rocephin and await urine culture 08/27/24 1332 Cosigner Signature (if applicable): CC: ~ Signed [facility]03-11-2025 Progress note [facility] Medical Records Department [address] [place] [address] Progress Note - Hospitalist 08/27/24 0831 MR#: [id number] Acct: [id number] Name: PEDRO PABLO SIERRA Rep #:[id number] : 1950 74 From: Celia Toribio MD PCP: Dr. Daija Morton MD Status:ADM I NO Location: [facility] FL704-9 Reason for Visit Reason for Visit: Diagnoses [...] Neut % (Auto) 56.2, Lymph % (Auto) 23.0,Bee % (Auto) 13.1 H, Eos % (Auto) [...] documentation, 36minutes Charges/Coding Visit Charges Inpatient E&M: 03327 Subs Hosp L2 08/27/24 1252 Cosigner Signature (if applicable): CC: ~ Signed [facility]03-10-2025 Progress note Author Celia Toribio [facility] Note Date/Time August 26, 2024 4:5 4pm [facility] Medical Records Department [address] [place] [address] Progress Note - Hospitalist 08/26/24906 MR#: [id number] Acct: [id number] Name: PEDRO PABLO SIERRA Rep #:[id number] : 1950 74 From: Celia Toribio MD PCP: Dr. Daija Morton MD Status:ADM I NO Location: [place] [address] Reason for Visit Reason for Visit: Diagnoses [...] 78.4 H, Lymph % (Auto) 10.3 L, Bee % (Auto) 9.9, Eos % (Auto) 0.3, [...] % (Auto) 60.3, Lymph % (Auto) 19.8, Bee% (Auto) 15.2 H, Eos % (Auto) 3.4, [...] IMPRESSION: No acute airspace abnormality. Reading Location: [facility] Physical Exam Narrative General: Alert, [...] Toribio MD Charges/Coding Visit Charges Inpatient E&M: 11666 Subs Hosp L2 08/26/24 9397 <Electronically signed by Celia Toribio MD> Cosigner Signature (if applicable): CC: ~ Signed [facility] Work Phone: [phone] Progress note [facility] Medical Records Department [address] [place] [address] Progress Note - Hospitalist 08/26/24906 MR#: [id number] Acct: [id number] Name: PEDRO PABLO SIERRA Rep #:[id number] : 1950 74 From: Celia Toribio MD PCP: Dr. Daija Morton MD Status:ADM I NO Location: [facility] BP808-1 Reason for Visit Reason for Visit: Diagnoses [...] 78.4 H, Lymph % (Auto) 10.3 L, Bee % (Auto) 9.9, Eos % (Auto) 0.3, [...] Neut %(Auto) 60.3, Lymph % (Auto) 19.8, Bee% (Auto) 15.2 H, Eos % (Auto) 3.4, [...] IMPRESSION: No acute airspace abnormality. [facility] Physical Exam Narrative General: Alert, no [...] Toribio MD Charges/Coding Visit Charges Inpatient E&M: 21786 Subs Hosp L2 08/26/24 1654 Cosigner Signature (if applicable): CC: ~ Signed [facility]03-09-2025 History and physical note Author Lisha Talamantes [facility] Note Date/Time August 25, 2024 7:00 pm [facility] Medical Records Department [address] [place] [address] H&P Exam - Hospitalist 08/25/24 1820 MR#: [id number] Acct: [id number] Name: PEDRO PABLO SIERRA Rep #:[id number] : 1950 74 From: Lisha Talamantes DO PCP: Dr. Daija Morton MD Status:ADM I NO Location: [facility] EB883-6 HPI - General General Date of Admission: 08/25/24 Date of Service: 08/25/24 Chief Complaint: Diarrhea/generalized weakness HPI Narrative PEDRO PABLO SIERRA, is a 74 M who presented to the emergency department [facility] on 08/25/2024 with a chief complaint of generalized weakness and diarrhea. Patient had recently been at [facility] and was discharged about 5 [...] Chest x-ray is unremarkable for acute findings. [facility] Medical History Compression fx, lumbar spine Hypertension [...] 78.4 H, Lymph % (Auto) 10.3 L, Bee % (Auto) 9.9, Eos % (Auto) 0.3, [...] the current livingenvironment -Was recently discharged from [facility] however patient wasadamant that he [...] need clarified Charges/Coding Visit Charges Inpatient E&M: 08100 Init Hosp L2 08/25/24 1900 <Electronically signed by Lisha Talamantes DO> Cosigner Signature (if applicable): CC: Dr. Daija Morton MD; Dr. Lisha Talamantes DO~ Signed [facility] Work Phone: 1([phone]) 857-281403-09-2025 Discharge summary Author Jaden Jauregui [facility] Note Date/Time August 25, 2024 6:15 pm [facility] Medical Records Department [address] [place] [address] Emergency Department Summary 08/25/24 MR#: [id number] Acct: [id number] Name: PEDRO PABLO SIERRA Rep #:[id number] : 1950 74 From: Jaden Jauregui MD [...] apparently he has been in a assisted [facility] when he arrived [...] of C. difficile he does not know. [facility] Medical History Compression fx, lumbar spine Hypertension [...] 78.4 H Lymph % (Auto) 10.3 L Bee % (Auto) 9.9 Eos % (Auto) 0.3 [...] IMPRESSION: No acute airspace abnormality. [facility] Management Discussion w/another healthcare provider: Hospitalist Discharge Plan Dx/Rx/DC Orders Clinical Impression: Debility, Acute diarrhea, Mild dehydration Disposition Disposition: Acute Care Hospital [facility] What to do if you have Problems For any increased pain, shortness of breath, bleeding, nausea or vomiting, chestpain, or any unexpected problems, contact your Primary Care Provider. Call [facility] ([phone]) or report to the closest Emergency Room. Call 911 if necessary. 08/25/241814 <Electronically signed by Jaden Jauregui MD> Cosigner Signature (if applicable): CC: Dr. Daija Morton MD ~ Signed [facility] Work Phone: [phone] 877-462903-09-2025 History and physical note [facility] Medical Records Department [address] [place] [address] H&P Exam - Hospitalist 08/25/24 1820 MR#: [id number] Acct: [id number] Name: PEDRO PABLO SIERRA Rep #:[id number] : 1950 74 From: Lisha Talamantes DO PCP: Dr. Daija Morton MD Status:ADM I NO Location: HI3 [id number] HPI - General General Date of Admission: 08/25/24 Date of Service: 08/25/24 Chief Complaint: Diarrhea/generalized weakness HPI Narrative PEDRO PABLO SIERRA, is a 74 M who presented to the emergency department [facility] on 08/25/2024 with a chief complaint of generalized weakness and diarrhea. Patient had recently been at [facility] and was discharged about 5 [...] Chest x-ray is unremarkable for acute findings. [facility] Medical History Compression fx, lumbar spine Hypertension [...] 78.4 H, Lymph % (Auto) 10.3 L, Bee % (Auto) 9.9, Eos % (Auto) 0.3, [...] the current livingenvironment -Was recently discharged from [facility] however patient wasadamant that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 Cannula Oxygen Flow Rate (L/min) 3 3 [facility] <DIEGO Hopper - Last Filed: 07/30/23 22:27> [facility] Lab Data Labs: Laboratory Results - last 24 hr 07/30/23 07/30/23 20:51 21:55 WBC 5.5 RBC 4.07 L Hgb 13.3 Hct 40.4 MCV 99.3 H MCH 32.7 H MCHC 32.9 RDW Std Deviation 48.3 H RDW Coeff of Aly 13.2 Plt Count 262 MPV 9.4 Immature Gran % (Auto) 0.500 Neut % (Auto) 76.5 H Lymph % (Auto) 10.9 L Bee % (Auto) 10.7 H Eos % (Auto) [...] Clarity Clear Urine pH 7.0 Ur Specific Mattoon 1.010 Urine Protein 30 H Urine Glucose [...] Alvarado MD - Last Filed: 07/31/23 00:08> [facility] Narrative Medical decision making narrative: I [...] 76.5 H Lymph % (Auto) 10.9 L Bee % (Auto) 10.7 H Eos % (Auto) [...] Clarity Clear Urine pH 7.0 Ur Specific Mattoon 1.010 Urine Protein 30 H Urine Glucose [...] A, COPD with acute exacerbation Disposition Disposition: [facility] What to do if you have Problems For any increased pain, shortness of breath, bleeding, nausea or vomiting, chestpain, or any unexpected problems, contact your Primary Care Provider. Call [facility] ([phone]) or report to the closest Emergency Room. Call 911 if necessary. 07/30/232226 <Electronically signed by Андрей OCRTEZ> Cosigner Signature (if applicable): 07/31/23 0008 <Electronically signed by Huber Alvarado MD> CC: Dr. Daija Morton MD ~ Signed [facility] Work Phone: 1(880) 328-519002-11-2024 Discharge summary Author Huber Alvarado [facility] July 31, 2023 12:08am Note Date/Time July 30, 2023 8:57pm [facility] Medical Records Department [address] [place] [address] Emergency Department Summary 07/30/23 MR#: [id number] Acct: [id number] Name: PEDRO PABLO SIERRA Rep #:[id number] : 1950 73 From: Андрей CORTEZ PCP: [...] is tachypneic. He does have audible wheezing. [facility] <DIEGO Hopper - Last Filed: 07/30/23 22:27> [facility] Medical History Asthma Atrial fibrillation Chronic pain [...] 76.5 H Lymph % (Auto) 10.9 L Bee % (Auto) 10.7 H Eos % (Auto) [...] Clarity Clear Urine pH 7.0 Ur Specific Mattoon 1.010 Urine Protein 30 H Urine Glucose [...] Alvarado MD - Last Filed: 07/31/23 00:08> [facility] Narrative Medical decision making narrative: I [...] 76.5 H Lymph % (Auto) 10.9 L Bee % (Auto) 10.7 H Eos % (Auto) [...] Clarity Clear Urine pH 7.0 Ur Specific Mattoon 1.010 Urine Protein 30 H Urine Glucose [...] acute exacerbation Disposition Disposition: [facility] What to do if you have Problems For any increased pain, shortness of breath, bleeding, nausea or vomiting, chestpain, or any unexpected problems, contact your Primary Care Provider. Call [facility] ([phone]) or report to the closest Emergency Room. Call 911 if necessary. 07/30/232226 <Electronically signed by Андрей CORTEZ> Cosigner Signature (if applicable): 07/31/23 000 <Electronically signed by Huber Alvarado MD> CC: Dr. Daija Morton MD ~ Signed [facility] Work Phone: 1(323) 321-362302-01-2024 Miscellaneous Notes* Telephone Encounter - Saundra George [...] Message left on voicemail of Sondra Alejo [phone] to request Pedro Pablo contact the office for further triage. Saundra George RN documented in this encounterOhio [facility]01-23-2024 Note. MICRO - Microbiology PROCEDURE: Urine Culture [*1] SOURCE: Urine, Clean Catch BODY SITE: COLLECTED DATE/TIME: 07/10/2023 12:00 EST RECEIVED DATE/TIME: 07/10/2023 16:50 EST START DATE/TIME: 07/10/2023 16:50 EST FREE TEXT SOURCE: FINAL REPORTS Final Report [] Verified Date/Time/Personnel: 07/11/2023 14:00 EST 10,000 - 50,000 cfu/ml Mixed growth consistent with normal urogenital kishore. Performing Locations *1: This test was performed at: [facility], [address] [place] [address], [id number] , [facility] ([place])05-30-2023 Miscellaneous Notes* Telephone Encounter - Kelly Zelaya [...] Zelaya RN. documented in this encounterOhio Valley Hospital12-12-2023 Miscellaneous Notes* Telephone Encounter - Isabella [...] Hdz LPN documented in this encounterOhio Valley Hospital12-04-2023 Miscellaneous Notes* Telephone Encounter - Nani Webb LPN - 05/22/2023 10:17 AM EST [facility] called in and message below given. Stella's PH>[phone]. Nani Webb LPN * Telephone Encounter - Sammi Cleaning LPN - 05/19/2023 7:10 PM EST Message left on secure voicemail. Sammi Cleaning LPN * Telephone Encounter - Keara Shin MD - 05/19/2023 6:45 PM EST Okay verbal order * Telephone Encounter - Gabino Delgado RN - 05/19/2023 1:33 PM EST Kristina Roe [facility]- reports patient will be discharged today with orders for SN & PT. would like to see patient this weekend, and no later than Monday. Requesting verbal order to follow for [facility]. Please phone Etta with verbal: [phone] documented in this encounterOhio Valley Hospital10-17-2023 Discharge summary Author Frankie Galindo [facility] April 04, 2023 10:02am Note Date/Time April 04, 2023 9 :21am [facility] Medical Records Department [address] [place] [address] Transfer to [facility] MR#: [id number] Acct: [id number] Name: PEDRO PABLO SIERRA Rep #:[id number] : 1950 72 From: Frankie Galindo MD PCP: Dr. Daija Morton MD Status:ADM I N Certification of patient admission REQUIRED AT TIME OF ADMISSION. I CERTIFY THAT POST-HOSPITAL ECF SERVICES ARE REQUIRED TO BE GIVEN ON AN IN-PATIENT BASIS BECAUSE OF THE ABOVE NAMED PATIENT'S NEED FOR FDC CARE ON A CONTINUING BASIS FOR THE [...] - Requested for PT OT eval and director social welfare to assist with discharge planning 3. Chronic [...] tamsulosin and finasteride 10. DVT prophylaxis ? 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 Will provide chocolate ensure compact tid [...] cbc while on iv abx. Fax to [phone] sennosides-docusate sodium [Stool Softener-Stimulant Laxat] 8.6-50 mg [...] in before D/C Order can be placed): [facility] (1) UTI (urinary tract infection) Qualifiers: Urinary tract infection type: acute cystitis Hematuria presence: without hematuria Qualified Code(s): N30.00 - Acute cystitis without hematuria 04/04/23 1002 <Electronically signed by Frankie Galindo MD> Cosigner Signature (if applicable): CC: Dr. Daija Morton MD; Dr. Fran Cartwright MD; Dr. Celia Toribio MD; Dr. Elton Moore MD ~ [facility] Work Phone: 1(537) 714-510810-17-2023 Progress note Author Frankie Galindo [facility] April 04, 2023 9:21am Note Date/Time April 04, 2023 7 :31am [facility] Medical Records Department [address] [place] [address] Progress Note - Hospitalist 04/04/2331 MR#: [id number] Acct: [id number] Name: PEDRO PABLO SIERRA Rep #:[id number] : 1950 72 From: Frankie Galindo MD PCP: Dr. Daija Morton MD Status:ADM I N Location: MS3 UF009-1 Reason for Visit Reason for Visit: Diagnoses [...] % (Auto) 64.4, Lymph % (Auto) 23.6, Bee % (Auto) 6.3, Eos % (Auto) 3.3, [...] - Requested for PT OT eval and director social welfare to assist with discharge planning 3. Chronic [...] documentation, 36minutes. Charges/Coding Visit Charges Inpatient E&M: 41308 Subs Hosp L2 04/04/23 0921 <Electronically signed by Frankie Galindo MD> Cosigner Signature (if applicable): CC: ~ Signed [facility] Work Phone: 1(393) 259-735010-16-2023 Consult note Author Elton Moore [facility] April 03, 2023 5:06pm Note Date/Time April 03, 2023 5 :04pm [facility] Medical Records Department [address] [place] [address] Consultation - Infectious Dx 04/03/23 1703 MR#: [id number] Acct: [id number] Name: PEDRO PABLO SIERRA Rep #:[id number] : 1950 72 From: Elton pierce MD PCP: Dr. Daija Morton MD Status:ADM I N Location: [place] [address] Assessment & Plan Assessment/Plan (1) Acute UTI: [...] performed and neg except as noted above. [facility] Medical History Asthma Atrial fibrillation Chronic pain [...] % (Auto) 63.8, Lymph % (Auto) 22.5, Bee% (Auto) 7.6, Eos % (Auto) 3.9, Baso [...] Toribio MD; Dr. Elton Moore MD~ Signed [facility] Work Phone: 1(126) 788-466810-16-2023 Progress note Author Frankie Galindo [facility] April 03, 2023 10:50am Note Date/Time April 03, 2023 1 0:51am [facility] Medical Records Department [address] [place] [address] Progress Note - Hospitalist 04/03/23 1046 MR#: [id number] Acct: [id number] Name: PEDRO PABLO SIERRA Shannan Rep #:[id number] : 1950 72 From: Frankie Galindo MD PCP: Dr. Daija Morton MD Status:ADM I N Location: [place] [address] Reason for Visit Reason for Visit: Diagnoses [...] % (Auto) 63.8, Lymph % (Auto) 22.5, Bee% (Auto) 7.6, Eos % (Auto) 3.9, Baso [...] - Requested for PT OT eval and director social welfare to assist with discharge planning 3. Chronic [...] documentation, 36minutes. Charges/Coding Visit Charges Inpatient E&M: 32794 Subs Hosp L2 04/03/23 1050 <Electronically signed by Frankie Galindo MD> Cosigner Signature (if applicable): CC: ~ Signed [facility] Work Phone: 1(326) 342-122910-15-2023 Progress note Author Frankie Galindo [facility] April 02, 2023 9:12am Note Date/Time April 02, 2023 7 :35am [facility] Medical Records Department [address] [place] [address] Progress Note - Hospitalist 04/02/23 0735 MR#: [id number] Acct: [id number] Name: PEDRO PABLO SIERRA Rep #:[id number] : 1950 72 From: Frankie Galindo MD PCP: Dr. Daija Morton MD Status:ADM I N Location: [place] [address] Reason for Visit Reason for Visit: Diagnoses [...] % (Auto) 58.6, Lymph % (Auto) 23.5, Bee % (Auto) 11.2 H, Eos % (Auto) [...] - Requested for PT OT eval and director social welfare to assist with discharge planning 3. Chronic [...] Cosigner Signature (if applicable): CC: ~ Signed [facility] Work Phone: 1(379) 556-969510-15-2023 Progress note Author Fran Cartwright [facility] April 02, 2023 6:53am Note Date/Time April 02, 2023 6 :53am [facility] Medical Records Department [address] [place] [address] Progress Note 04/02/23 0652 MR#: [id number] Acct: [id number] Name: PEDRO PABLO SIERRA R Rep #:[id number] : 1950 72 From: Fran Cartwright MD PCP: Dr. Daija Morton MD Status:ADM I N Location: [place] [address] Progress Note Urine culture returned positive for ESBL E. coli. E. coli is however sensitive to Zosyn in vitro. Cannot be certain whether E. coli will be sensitive in vivo. Zosyn discontinued. Started on Merrem, adjusted for creatinine clearance. 04/02/23652 <Electronically signed by Fran Cartwright MD> Fran Cartwright MD Cosigner Signature (if applicable): CC: ~ Signed [facility] Work Phone: 1(166) 110-667910-14-2023 Progress note Author Frankie Lenolyndsey [facility] April 01, 2023 10:02am Note Date/Time April 01, 2023 7 :53am [facility] Medical Records Department [address] [place] [address] Progress Note - Hospitalist 04/01/23 0751 MR#: [id number] Acct: [id number] Name: MARIELAPEDRO PABLO Pierce Rep #:[id number] : 1950 72 From: Frankie Galindo MD PCP: Dr. Daija Morton MD Status:ADM I N Location: [place] [address] Reason for Visit Reason for Visit: Diagnoses [...] (Auto) 70.2 H, Lymph % (Auto) 15.3 L,Bee % (Auto) 11.0 H, Eos % (Auto) [...] - Requested for PT OT eval and director social welfare to assist with discharge planning 3. Chronic [...] tamsulosin and finasteride 10. DVT prophylaxis ? [place] Lovenox Time spent in the patient's overall evaluation,decision-making process, review of diagnostic data, adjustment of management, discussion with other providers, nursing nursing and ancillary staff involved in patient's care documentation, 36minutes. Charges/Coding Visit Charges Inpatient E&M: 04246 Subs Hosp L2 04/01/23 1002 <Electronically signed by Frankie Galindo MD> Cosigner Signature (if applicable): CC: ~ Signed [facility] Work Phone: 1([phone]) 265-934110-13-2023 Progress note Author Celia Toribio [facility] March 31, 2023 11:24am Note Date/Time March 31, 2023 7 :18am [facility] Medical Records Department [address] [place] [address] Progress Note - Hospitalist 03/31/23711 MR#: [id number] Acct: [id number] Name: PEDRO PABLO SIERRA Rep #:[id number] : 1950 72 From: Celia Toribio MD PCP: Dr. Daija Morton MD Status:ADM I N Location: [place] [address] Reason for Visit Reason for Visit: Diagnoses [...] 79.2 H, Lymph % (Auto) 9.3 L, Bee % (Auto) 10.5 H, Eos % (Auto) [...] Sl. Cloudy, Urine pH 6.0, Ur Specific Mattoon 1.020, Urine Protein 100 H, Urine Glucose [...] Reading Location ID and State: [facility] / [place] , Service support , Shoulder X-Ray 03/30/23 [...] Reading Location ID and State: [place] / [place] , Service support , Chest X-Ray 03/30/23 [...] documentation, 36minutes. Charges/Coding Visit Charges Inpatient E&M: 20003 Subs Hosp L2 03/31/23 1124 <Electronically signed by Celia Toribio MD> Cosigner Signature (if applicable): CC: ~ Signed [facility] Work Phone: [phone]) 106-823410-12-2023 Discharge summary Author Huber Alvarado [facility] March 30, 2023 8:31pm Note Date/Time March 30, 2023 3 :51pm [facility] Medical Records Department [address] [place] [address] Emergency Department Summary 03/30/23 MR#: [id number] Acct: [id number] Name: PEDRO PABLO SIERRA Shannan Rep #:[id number] : 1950 72 From: Huber Alvarado MD PCP: Dr. Daija Morton MD Status:ADM I N Location: MS3 SW727-8 HPI History of Present Illness Chief Complaint: [...] thinks it is just due to pain. [facility] Medical History (Updated 03/30/23 @ 20:31 by [...] 79.2 H Lymph % (Auto) 9.3 L Bee % (Auto) 10.5 H Eos % (Auto) [...] Sl. Cloudy Urine pH 6.0 Ur Specific Mattoon 1.020 Urine Protein 100 H Urine Glucose [...] 17:14 EDT Reading Location ID and State: [employer] / [place] , Service support , Shoulder X-Ray 03/30/23 [...] changes. No acute ST elevation or depression. MD interval, QRS duration and QTc are normal. Discharge Plan Dx/Rx/DC Orders Clinical Impression: Compression fracture of thoracic vertebra, Multiple falls, Acute UTI, Inabilityto walk Disposition Disposition: Acute Care Hospital [facility] What to do if you have Problems For any increased pain, shortness of breath, bleeding, nausea or vomiting, chestpain, or any unexpected problems, contact your Primary Care Provider. Call [facility] ([phone]) or report to the closest Emergency Room. Call 911 if necessary. 03/30/232030 <Electronically signed by Huber Alvarado MD> Cosigner Signature (if applicable): CC: Dr. Daija Morton MD ~ Signed [facility] Work Phone: [phone] 726-964510-12-2023 History and physical note Author Fran Cartwright [facility] March 30, 2023 8:08pm Note Date/Time March 30, 2023 7 :32pm [facility] Medical Records Department [address] [place] [address] H&P Exam - Hospitalist 03/30/231931 MR#: [id number] Acct: [id number] Name: PEDRO PABLO SIERRA Rep #:[id number] : 1950 72 From: Fran Cartwright MD PCP: Dr. Daija Morton MD Status:ADM I N Location: MS3 VD327-1 HPI - General General Date of Admission: [...] patient has a burning sensation with urination. [facility] Medical History (Updated 03/30/23 @ 20:04 by [...] 79.2 H, Lymph % (Auto) 9.3 L, Bee % (Auto) 10.5 H, Eos % (Auto) [...] Sl. Cloudy, Urine pH 6.0, Ur Specific Mattoon 1.020, Urine Protein 100 H, Urine Glucose [...] 17:14 EDT Reading Location ID and State: [employer] [facility] [employer] , Service support , Shoulder X-Ray 03/30/23 15:46 IMPRESSION: Mild degenerative disease as described with no acute fracture or subluxation. Electronically Signed: Irish Velásquez MD at 17:15 EDT Reading Location ID and State: [employer] , Service support , Thoracic Spine CT 03/30/23 15:46 IMPRESSION: Diffuse osteopenia/osteoporosis with minimal compression fracture of T11, exact age indeterminate. No retropulsion or extension to the pedicles visualized. Underlying degenerative disease. No subluxation. Electronically Signed: Irish Velásquez MD at 17:12 EDT Reading Location ID and State: [employer] , Service support , Chest X-Ray 03/30/23 16:30 IMPRESSION: No acute cardiac pulmonary disease. Electronically Signed: Irish Velásquez MD at 17:15 EDT Reading Location ID and State: [employer] [facility] [employer] , Service support , Assessment & Plan [...] documentation, 70minutes. Charges/Coding Visit Charges Inpatient E&M: 78043 Init Hosp L3 03/30/232007 <Electronically signed by Fran Cartwright MD> Cosigner Signature (if applicable): CC: Dr. Daija Morton MD; Dr. Fran Cartwright MD~ Signed [facility] Work Phone: 1(655) 761-788810-12-2023 Discharge summary Author Huber Alvarado [facility] March 30, 2023 8:31pm Note Date/Time March 30, 2023 3 :51pm [facility] Medical Records Department [address] [place] [address] Emergency Department Summary 03/30/23 MR#: [id number] Acct: [id number] Name: PEDRO PABLO SIERRA Rep #:[id number] : 1950 72 From: Huber Alvarado MD PCP: Dr. Daija Morton MD Status:ADM I N Location: MS3 MR364-1 HPI History of Present Illness Chief Complaint: [...] thinks it is just due to pain. [facility] Medical History (Updated 03/30/23 @ 20:31 by [...] 79.2 H Lymph % (Auto) 9.3 L Bee % (Auto) 10.5 H Eos % (Auto) [...] Sl. Cloudy Urine pH 6.0 Ur Specific Mattoon 1.020 Urine Protein 100 H Urine Glucose [...] 17:14 EDT Reading Location ID and State: [employer] / [place] , Service support , Shoulder X-Ray 03/30/23 [...] changes. No acute ST elevation or depression. MD interval, QRS duration and QTc are normal. Discharge Plan Dx/Rx/DC Orders Clinical Impression: Compression fracture of thoracic vertebra, Multiple falls, Acute UTI, Inabilityto walk Disposition Disposition: Acute Care Hospital [facility] What to do if you have Problems For any increased pain, shortness of breath, bleeding, nausea or vomiting, chestpain, or any unexpected problems, contact your Primary Care Provider. Call [facility] ([phone]) or report to the closest Emergency Room. Call 911 if necessary. 03/30/232030 <Electronically signed by Huber Alvarado MD> Cosigner Signature (if applicable): CC: Dr. Daija Morton MD ~ Signed [facility] Work Phone: [phone]) 564-650109-08-2023 Miscellaneous Notes* Telephone Encounter - Debby Saldana [...] Saldana LPN documented in this encounterOhio [facility]08-11-2023 Miscellaneous Notes* Telephone Encounter - Gabino [...] Delgado RN documented in this encounterOhio Valley Hospital07-10-2023 History of Present illness Narrative* Ryan [...] May MD documented in this encounterOhio Valley Hospital05-07-2023 Hospital Discharge instructions Patient Education 10/22/2022 [...] chest, arm, back, neck or jaw pain [phone] [employer]. [address] [place] [address]. All rights reserved. This information is not intended as a substitute for professional medical care. Always follow yourhealthcare professional's instructions. Follow Up Care 10/22/2022 19:49:21 With:DAIJA MORTON MD Address: [address] [facility] [place] [address]- When:2-4 days [facility] 05-06-2023 Note Discharge Instructions Thank you for allowing [facility] to assist you with your healthcare needs. The following is importantdischarge information regarding your hospital visit. Diagnosis from Today's Visit Multiple Complaints What to Do Next Instructions from Your Care Team Please follow-up with the [facility] physicians that did your leg graft regarding the issues with her left graft and leg. No qualifying data available. Post Acute Orders No qualifying data available. You Need to Schedule the Following Appointments Follow Up with DAIJA MORTON MD When Within 2-4 days Where: [address] [facility] [place] [id number]- Allergies NKA Medications Please ask your primary [...] chest, arm, back, neck or jaw pain [phone] [employer]. [address] [place] [address]. All rights reserved. This information is not intended as a substitute for professional medical care. Always follow yourhealthcare professional's instructions. Additional Information VACCINATE! IT SAVES LIVES! Members of the community who have not yet received the COVID-19 vaccine and would like to receive it can visit one of [facility] vaccine clinics. There are many vaccine clinic locations within the [facility]. For locations and available times, please visit [email or web address]/. It is important to note that some COVID mobile vaccine clinics are held outdoors and may be canceled in rainy or stormy conditions. To learn more about pediatric vaccinations (ages 5-11), we invite you to visit the [facility] webpage. https://www.[email or web address]/[email or web address]-Odsfggqekyz-Jysbspeyya-[email or web address]-[email or web address] stions.htmlTo learn more about the COVID-19 vaccine, we invite you to visit the CDC website for a list of frequently asked questions. https://www.cdc.gov/coronavirus/2019-ncov/vaccines/faq.html [facility] Access Instructions: Stay connected with your healthcare team and access your personal medical information anytime with the [facility] Patient [facility]. If you would like a full copy of your medical records please contact the [facility] Medical Records Department Monday through Monday between 8a.m. and 4:30p.m. Please follow the directions below to access the portal: 1.Access the email account you provided upon registration to the [facility].2.Look for an invitation email from [facility].3.Open the email and access the invitation link: Accept Invitation to [facility] [employer] [facility]4.Fill in the required batres to create your account. Sign into www.[email or web address] with your username and password that you [...] you will allow to register on the [facility] Patient Portal for access to your information. You can also access the [facility] Patient Portal on the [employer]. Simply click on Health Records under Structure Vision and then click on the [employer] logo. HOW TO SAFELY DISPOSE OF PRESCRIPTION [...] Call your local pharmacy or go to [email or web address] to find one close to you.3.Make use of household items: Use cat litter or old coffee grounds to dispose medications if other options arenot available. Mix your drugs with these household products, seal them in an airtight container andthrow it into the garbage. Call [facility]: [phone] to be sure your drugs can be [...] aware that I should contact my doctor. 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: Date/Time: Relationship to Patient: Witness Name/Signature: Date/Time: [facility]05-06-2023 Note ORIGINAL EXAMINATION: CT OF THE [...] 10/22/2022 10:33:36 PM Ordering Provider: PRIYANKA FRANCO [facility]05-06-2023 Note ORIGINAL EXAMINATION: CT OF THE [...] Sign Date: 10/22/2022 10:33:36 PM Ordering Provider: [facility]04-14-2023 Miscellaneous Notes* Telephone Encounter - [...] Saldana LPN documented in this encounterOhio Valley Hospital03-22-2023 Miscellaneous Notes* Telephone Encounter - Berta Zazueta Ma - 09/07/2022 12:42 PM EDT Several attempts made to notify patient. No answer or able to leave message. No number left to callJill at [facility]. * Telephone Encounter - Anjel Braga APRN.CNP - 09/06/2022 4:30 PM EDT When reading Dr. Morton's note, patient wanted his meds filled for him and then he would start beingcompliant. Please call patient and let him know [facility] is already doing this. Thank you Anjel Braga APRN.CNP * Telephone Encounter - Rosaura Desai LPN - 09/06/2022 4:21 PM EDT [facility] phone #[phone] [facility] and they already fill his pills for him. Please advise further. Rosaura Desai LPN * Telephone Encounter - Anjel Braga APRN.CNP - 09/06/2022 4:13 PM EDT Please let patient know this and contact [facility] pharmacy to see how what we need to do to have someone do a pill pack for him. Thank you Anjel Braga APRN.CNP * Telephone Encounter - Lilia Burgos LPN - 09/06/2022 10:06 AM EDT Nidia with [facility] calls to report she received order [...] Burgos LPN documented in this encounterOhio Valley Hospital03-16-2023 Miscellaneous Notes* Telephone Encounter - Marguerite Roper RN - 09/01/2022 3:43 PM EDT Patient calling to request 3 medication refills-pended for review. Patient also states he is interested in [facility] and help with his medications. Agreeable to having referral order and information faxed to [facility] for their review and follow-up. Information faxed to [facility] as requested. Marguerite Roper RN documented in this encounterOhio Valley Hospital03-13-2023 Miscellaneous Notes* Telephone Encounter - Gabino Delgado RN - 08/29/2022 1:20 PM EDT Patient has been identified by name and date of : Yes, Provider eSlene Date 08-29-22 Time 1:20 pm Patient phones [...] Delgado RN documented in this encounterOhio Valley Hospital03-11-2023 History of Present illness Narrative* Daija Morton MD - 08/27/2022 11:04 AM EST Reason for Visit Patient presents with: skilled nursing follow-up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 October 2013, s/p left femoral endarterectomy with patch, US guided access RCFA, L profundaplasty, RUFUS recanalization & stenting, CRISPIN stenting on 10/23/13 for aorto-occlusive critical limb ischemia - S/p 11/12-11/19/13 [facility] Vascular Surgery for aortoiliac thrombosis [...] encounter (statuses as of 08/07/2023) [facility] History of Past illness Narrative* Problem [...] Overview: Admission: -became hypotensive on admission to [facility] (109/45 vs. 181/75 in ED) -1 L [...] vascular disease) 04/22/2014 06/08/2023 Overview: Assessment: Left HANDS PARTER endart with bovine 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 Due to occlusion of this repair 2 days later, he returned to the OR and underwent a Left EIA to HANDS PARTER bypass with 7mm PTFE distally with retrograde [...] the last week. 2013. Went to the [facility] ER and was observed his Hb [...] for aorto-occlusive critical limb ischemia, CAD previous MO, DM, HTN, DLD, COPD, UC/IBD on sulfasalazine [...] Neurotoin BID at home Patient started on Sugarloaf postoperatively, pain controlled at time of discharge. Urinary retention 10/25/2013 08/18/2022 Overview: Home med: tamsulosin Plan: -Resume Tamsulosin DISPOSITION AND FOLLOW-UP 10/25/2013 Overview: CM following for d/c needs. PT/OT to evaluate-->recommending home PT 07/08/2014 Discharge with home care today Ischemia of extremity 10/14/20132013 Overview: - [facility] twice in October 2013, s/p left femoral endarterectomy with patch, US guided access RCFA, L profundaplasty, RUFUS recanalization & stenting, CRISPIN stenting on 10/23/13 for aorto-occlusive critical limb ischemia - S/p 11/12-11/19/13 [facility] Vascular Surgery for aortoiliac thrombosis [...] encounter (statuses as of 08/21/2023) [facility] Miscellaneous Notes* Telephone Encounter - Anjel [...] Freed RN documented in this encounterOhio Valley Hospital05-27-2021 Miscellaneous Notes* Telephone Encounter - Daija [...] but isgoing to talk to her supervisor production department about keeping patient on [facility] for one more visit. * Telephone Encounter - Gabino Delgado RN - 11/12/2020 12:50 PM EDT [facility]- [facility]- reports patient's new coumadin instructions have not been updated to [facility]. Attempted to call [facility]- they are closed for lunch. Will try again when they re-open at 1 pm. documented in this encounterOhio Valley Hospital05-26-2021 History of Present illness Narrative* Nahed [...] 10:32 AM documented in this encounterOhio Valley Hospital04-24-2020 History of Past illness Narrative* Problem [...] Neurotoin BID at home Patient started on Sugarloaf postoperatively, pain controlled at time of discharge. Ischemia of extremity 10/14/2013 02/10/2014 Overview: - [facility] twice in October [...] encounter (statuses as of 09/14/2021) [facility] History of Past illness Narrative* Problem [...] Neurotoin BID at home Patient started on Sugarloaf postoperatively, pain controlled at time of discharge. Ischemia of extremity 10/14/2013 02/10/2014 Overview: - admitted [facility] vascular surgery twice in October 2013, s/p left femoral endarterectomy with patch, US guided access RCFA, L profundaplasty, RUFUS recanalization & stenting, CRISPIN stenting on 10/23/13 for aorto-occlusive critical limb ischemia - S/p 11/12-11/19/13 [facility] Vascular Surgery for aortoiliac thrombosis [...] encounter (statuses as of 09/15/2021) [facility] History of Past illness Narrative* Problem [...] Neurotoin BID at home Patient started on Sugarloaf postoperatively, pain controlled at time of discharge. Ischemia of extremity 10/14/2013 02/10/2014 Overview: - admitted to [facility] vascular [facility] twice in October [...] encounter (statuses as of 09/15/2021) [facility] History of Past illness Narrative* Problem [...] Neurotoin BID at home Patient started on Sugarloaf postoperatively, pain controlled at time of discharge. Ischemia of extremity 10/14/2013 02/10/2014 Overview: - admitted [facility] vascular [facility] twice in October [...] encounter (statuses as of 09/16/2021) [facility] of Past illness Narrative* Problem [...] Neurotoin BID at home Patient started on Sugarloaf postoperatively, pain controlled at time of discharge. Ischemia of extremity 10/14/2013 02/10/2014 Overview: - admitted [facility] vascular surgery twice in October [...] encounter (statuses as of 09/16/2021) [facility] of Past illness Narrative* Problem [...] Neurotoin BID at home Patient started on Sugarloaf postoperatively, pain controlled at time of discharge. Ischemia of extremity 10/14/2013 02/10/2014 Overview: - admitted [facility] vascular [facility] twice in October 2013, s/p left femoral endarterectomy with patch, US guided access RCFA, L profundaplasty, RUFUS recanalization & stenting, CRISPIN stenting on 10/23/13 for aorto-occlusive critical limb ischemia - S/p 11/12-11/19/13 [facility] Vascular Surgery for aortoiliac thrombosis [...] encounter (statuses as of 09/17/2021) [facility] of Past illness Narrative* Problem [...] Neurotoin BID at home Patient started on Sugarloaf postoperatively, pain controlled at time of discharge. Ischemia of extremity 10/14/2013 02/10/2014 Overview: - admitted to [facility] vascular surgery twice in October [...] encounter (statuses as of 09/17/2021) [facility] of [facility] illness Narrative* Problem [...] Neurotoin BID at home Patient started on Sugarloaf postoperatively, pain controlled at time of discharge. Ischemia of extremity 10/14/2013 02/10/2014 Overview: - admitted [facility] vascular [facility] twice in October 2013, s/p left femoral endarterectomy with patch, US guided access RCFA, L profundaplasty, RUFUS recanalization & stenting, CRISPIN stenting on 10/23/13 for aorto-occlusive critical limb ischemia - S/p 11/12-11/19/13 [facility] Vascular Surgery for aortoiliac thrombosis [...] encounter (statuses as of 09/17/2021) [facility] of [facility] illness Narrative* Problem [...] Neurotoin BID at home Patient started on Sugarloaf postoperatively, pain controlled at time of discharge. Ischemia of extremity 10/14/2013 02/10/2014 Overview: - admitted to [facility] vascular surgery twice in October [...] encounter (statuses as of 09/18/2021) [facility] of [facility] illness Narrative* Problem [...] Neurotoin BID at home Patient started on Sugarloaf postoperatively, pain controlled at time of discharge. Ischemia of extremity 10/14/2013 02/10/2014 Overview: - admitted [facility] vascular surgery twice in October 2013, s/p left femoral endarterectomy with patch, US guided access RCFA, L profundaplasty, RUFUS recanalization & stenting, CRISPIN stenting on 10/23/13 for aorto-occlusive critical limb ischemia - S/p 11/12-11/19/13 [facility] Vascular Surgery for aortoiliac thrombosis [...] encounter (statuses as of 09/20/2021) [facility] of [facility] illness Narrative* Problem [...] Neurotoin BID at home Patient started on Sugarloaf postoperatively, pain controlled at time of discharge. Ischemia of extremity 10/14/2013 02/10/2014 Overview: - admitted to [facility] vascular surgery twice in October [...] encounter (statuses as of 09/21/2021) [facility] of [facility] Narrative* Problem [...] Neurotoin BID at home Patient started on Sugarloaf postoperatively, pain controlled at time of discharge. Ischemia of extremity 10/14/2013 02/10/2014 Overview: - admitted [facility] vascular surgery twice in October 2013, s/p left femoral endarterectomy with patch, US guided access RCFA, L profundaplasty, RUFUS recanalization & stenting, CRISPIN stenting on 10/23/13 for aorto-occlusive critical limb ischemia - S/p 11/12-11/19/13 [facility] Vascular Surgery for aortoiliac thrombosis [...] encounter (statuses as of 09/22/2021) [facility] of [facility] Narrative* Problem [...] Neurotoin BID at home Patient started on Sugarloaf postoperatively, pain controlled at time of discharge. [...] encounter (statuses as of 09/29/2021) [facility] Narrative* Problem [...] Neurotoin BID at home Patient started on Sugarloaf postoperatively, pain controlled at time of discharge. Ischemia of extremity 10/14/2013 02/10/2014 Overview: - admitted [facility] vascular surgery twice in October 2013, s/p left femoral endarterectomy with patch, US guided access RCFA, L profundaplasty, RUFUS recanalization & stenting, CRISPIN stenting on 10/23/13 for aorto-occlusive critical limb ischemia - S/p 11/12-11/19/13 [facility] Vascular Surgery for aortoiliac thrombosis [...] encounter (statuses as of 10/04/2021) [facility] of [facility] Narrative* Problem [...] Neurotoin BID at home Patient started on Sugarloaf postoperatively, pain controlled at time of discharge. Ischemia of extremity 10/14/2013 02/10/2014 Overview: - admitted [facility] vascular surgery twice in October 2013, s/p left femoral endarterectomy with patch, US guided access RCFA, L profundaplasty, RUFUS recanalization & stenting, CRISPIN stenting on 10/23/13 for aorto-occlusive critical limb ischemia - S/p 11/12-11/19/13 [facility] Vascular Surgery for aortoiliac thrombosis [...] encounter (statuses as of 10/06/2021) [facility] of [facility] Narrative* Problem [...] Neurotoin BID at home Patient started on Sugarloaf postoperatively, pain controlled at time of discharge. Ischemia of extremity 10/14/2013 02/10/2014 Overview: - admitted [facility] vascular surgery twice in October 2013, s/p left femoral endarterectomy with patch, US guided access RCFA, L profundaplasty, RUFUS recanalization & stenting, CRISPIN stenting on 10/23/13 for aorto-occlusive critical limb ischemia - S/p 11/12-11/19/13 [facility] Vascular Surgery for aortoiliac thrombosis [...] encounter (statuses as of 10/07/2021) [facility] of [facility] Narrative* Problem [...] Neurotoin BID at home Patient started on Sugarloaf postoperatively, pain controlled at time of discharge. Ischemia of extremity 10/14/2013 02/10/2014 Overview: - admitted to [facility] vascular surgery twice in October 2013, s/p left femoral endarterectomy with patch, US guided access RCFA, L profundaplasty, RUFUS recanalization & stenting, CRISPIN stenting on 10/23/13 for aorto-occlusive critical limb ischemia - S/p 11/12-11/19/13 [facility] Vascular Surgery for aortoiliac thrombosis [...] encounter (statuses as of 10/07/2021) [facility] of [facility] Narrative* Problem [...] Neurotoin BID at home Patient started on Sugarloaf postoperatively, pain controlled at time of discharge. Ischemia of extremity 10/14/2013 02/10/2014 Overview: - admitted to [facility] vascular surgery twice in October 2013, s/p left femoral endarterectomy with patch, US guided access RCFA, L profundaplasty, RUFUS recanalization & stenting, CRISPIN stenting on 10/23/13 for aorto-occlusive critical limb ischemia - S/p 11/12-11/19/13 [facility] Vascular Surgery for aortoiliac thrombosis [...] encounter (statuses as of 10/08/2021) [facility] of [facility] Narrative* Problem [...] Neurotoin BID at home Patient started on Sugarloaf postoperatively, pain controlled at time of discharge. Ischemia of extremity 10/14/2013 02/10/2014 Overview: - admitted to [facility] vascular surgery twice in October 2013, s/p left femoral endarterectomy with patch, US guided access RCFA, L profundaplasty, RUFUS recanalization & stenting, CRISPIN stenting on 10/23/13 for aorto-occlusive critical limb ischemia - S/p 11/12-11/19/13 [facility] Vascular Surgery for aortoiliac thrombosis [...] encounter (statuses as of 10/13/2021) [facility] Narrative* Problem [...] Neurotoin BID at home Patient started on Sugarloaf postoperatively, pain controlled at time of discharge. [...] encounter (statuses as of 10/13/2021) [facility] Narrative* Problem [...] Neurotoin BID at home Patient started on Sugarloaf postoperatively, pain controlled at time of discharge. Ischemia of extremity 10/14/2013 02/10/2014 Overview: - admitted [facility] vascular [facility] twice in October [...] encounter (statuses as of 10/14/2021) [facility] Narrative* Problem [...] Neurotoin BID at home Patient started on Sugarloaf postoperatively, pain controlled at time of discharge. Ischemia of extremity 10/14/2013 02/10/2014 Overview: - admitted to [facility] vascular surgery twice in October 2013, s/p left femoral endarterectomy with patch, US guided access RCFA, L profundaplasty, RUFUS recanalization & stenting, CRISPIN stenting on 10/23/13 for aorto-occlusive critical limb ischemia - S/p 11/12-11/19/13 [facility] Vascular Surgery for aortoiliac thrombosis [...] encounter (statuses as of 10/18/2021) [facility] Narrative* Problem [...] Neurotoin BID at home Patient started on Sugarloaf postoperatively, pain controlled at time of discharge. Ischemia of extremity 10/14/2013 02/10/2014 Overview: - admitted [facility] vascular surgery twice in October 2013, s/p left femoral endarterectomy with patch, US guided access RCFA, L profundaplasty, RUFUS recanalization & stenting, CRISPIN stenting on 10/23/13 for aorto-occlusive critical limb ischemia - S/p 11/12-11/19/13 [facility] Vascular Surgery for aortoiliac thrombosis [...] encounter (statuses as of 10/21/2021) [facility] Narrative* Problem [...] Neurotoin BID at home Patient started on Sugarloaf postoperatively, pain controlled at time of discharge. Ischemia of extremity 10/14/2013 02/10/2014 Overview: - admitted to [facility] vascular surgery twice in October 2013, s/p left femoral endarterectomy with patch, US guided access RCFA, L profundaplasty, RUFUS recanalization & stenting, CRISPIN stenting on 10/23/13 for aorto-occlusive critical limb ischemia - S/p 11/12-11/19/13 [facility] Vascular Surgery for aortoiliac thrombosis [...] encounter (statuses as of 10/21/2021) [facility] Narrative* Problem [...] Neurotoin BID at home Patient started on Sugarloaf postoperatively, pain controlled at time of discharge. Ischemia of extremity 10/14/2013 02/10/2014 Overview: - admitted [facility] twice in October 2013, s/p left femoral endarterectomy with patch, US guided access RCFA, L profundaplasty, RUFUS recanalization & stenting, CRISPIN stenting on 10/23/13 for aorto-occlusive critical limb ischemia - S/p 11/12-11/19/13 [facility] for aortoiliac thrombosis [...] encounter (statuses as of 10/22/2021) [facility]04-24-2020 History of Past illness Narrative* Problem [...] Neurotoin BID at home Patient started on [place] postoperatively, pain controlled at time of discharge. Ischemia of extremity 10/14/2013 02/10/2014 Overview: - admitted to [facility] vascular [facility] twice in October 2013, s/p left femoral endarterectomy with patch, US guided access RCFA, L profundaplasty, RUFUS recanalization & stenting, CRISPIN stenting on 10/23/13 for aorto-occlusive critical limb ischemia - S/p 11/12-11/19/13 [facility] Surgery for aortoiliac thrombosis [...] encounter (statuses as of 10/22/2021) [facility]04-24-2020 History of Past illness Narrative* Problem [...] Neurotoin BID at home Patient started on [place] postoperatively, pain controlled at time of discharge. Ischemia of extremity 10/14/2013 02/10/2014 Overview: - admitted to [facility] vascular [facility] twice in October 2013, s/p left femoral endarterectomy with patch, US guided access RCFA, L profundaplasty, RUFUS recanalization & stenting, CRISPIN stenting on 10/23/13 for aorto-occlusive critical limb ischemia - S/p 11/12-11/19/13 [facility] Surgery for aortoiliac thrombosis [...] encounter (statuses as of 10/22/2021) [facility]04-[facility]2020 History of Past illness Narrative* Problem [...] Neurotoin BID at home Patient started on [place] postoperatively, pain controlled at time of discharge. Ischemia of extremity 10/14/2013 02/10/2014 Overview: - admitted [facility] twice in October 2013, s/p left femoral endarterectomy with patch, US guided access RCFA, L profundaplasty, RUFUS recanalization & stenting, CRISPIN stenting on 10/23/13 for aorto-occlusive critical limb ischemia - S/p 11/12-11/19/13 [facility] Vascular Surgery for aortoiliac thrombosis [...] encounter (statuses as of 10/27/2021) [facility]2020 History of Past illness Narrative* Problem [...] Neurotoin BID at home Patient started on [place]lo[place] postoperatively, pain controlled at time of discharge. Ischemia of extremity 10/14/2013 02/10/2014 Overview: - admitted [facility] twice in October 2013, s/p left femoral endarterectomy with patch, US guided access RCFA, L profundaplasty, RUFUS recanalization & stenting, CRISPIN stenting on 10/23/13 for aorto-occlusive critical limb ischemia - S/p 11/12-11/19/13 [facility] Vascular Surgery for aortoiliac thrombosis [...] encounter (statuses as of 11/08/2021) [facility]2020 History of Past illness Narrative* Problem [...] Neurotoin BID at home Patient started on [place]lo[place] postoperatively, pain controlled at time of discharge. Ischemia of extremity 10/14/2013 02/10/2014 Overview: - admitted [facility] twice in October 2013, s/p left femoral endarterectomy with patch, US guided access RCFA, L profundaplasty, RUFUS recanalization & stenting, CRISPIN stenting on 10/23/13 for aorto-occlusive critical limb ischemia - S/p 11/12-11/19/13 [facility] Vascular Surgery for aortoiliac thrombosis [...] encounter (statuses as of 11/08/2021) [facility] History of Past illness Narrative* Problem [...] Neurotoin BID at home Patient started on [place] postoperatively, pain controlled at time of discharge. Ischemia of extremity 10/14/2013 02/10/2014 Overview: - admitted [facility] vascular surgery twice in October 2013, s/p left femoral endarterectomy with patch, US guided access RCFA, L profundaplasty, RUFUS recanalization & stenting, CRISPIN stenting on 10/23/13 for aorto-occlusive critical limb ischemia - S/p 11/12-11/19/13 [facility] Vascular Surgery for aortoiliac thrombosis [...] encounter (statuses as of 11/11/2021) [facility] History of Past illness Narrative* Problem [...] Neurotoin BID at home Patient started on [place] postoperatively, pain controlled at time of discharge. Ischemia of extremity 10/14/2013 02/10/2014 Overview: - admitted [facility] vascular [facility] twice in October 2013, s/p left femoral endarterectomy with patch, US guided access RCFA, L profundaplasty, RUFUS recanalization & stenting, CRISPIN stenting on 10/23/13 for aorto-occlusive critical limb ischemia - S/p 11/12-11/19/13 [facility] Vascular Surgery for aortoiliac thrombosis [...] encounter (statuses as of 11/12/2021) [facility] History of Past illness Narrative* Problem [...] Neurotoin BID at home Patient started on [place] postoperatively, pain controlled at time of discharge. Ischemia of extremity 10/14/2013 02/10/2014 Overview: - admitted [facility] vascular surgery twice in October 2013, s/p left femoral endarterectomy with patch, US guided access RCFA, L profundaplasty, RUFUS recanalization & stenting, CRISPIN stenting on 10/23/13 for aorto-occlusive critical limb ischemia - S/p 11/12-11/19/13 [facility] Vascular Surgery for aortoiliac thrombosis [...] encounter (statuses as of 11/16/2021) [facility] History of Past illness Narrative* Problem [...] Neurotoin BID at home Patient started on [place] postoperatively, pain controlled at time of discharge. Ischemia of extremity 10/14/2013 02/10/2014 Overview: - admitted [facility] vascular surgery twice in October 2013, s/p left femoral endarterectomy with patch, US guided access RCFA, L profundaplasty, RUFUS recanalization & stenting, CRISPIN stenting on 10/23/13 for aorto-occlusive critical limb ischemia - S/p 11/12-11/19/13 [facility]ascular Surgery for aortoiliac thrombosis [...] encounter (statuses as of 11/17/2021) [facility] History of Past illness Narrative* Problem [...] Neurotoin BID at home Patient started on [place] postoperatively, pain controlled at time of discharge. Ischemia of extremity 10/14/2013 02/10/2014 Overview: - admitted [facility] vascular surgery twice in October 2013, s/p left femoral endarterectomy with patch, US guided access RCFA, L profundaplasty, RUFUS recanalization & stenting, CRISPIN stenting on 10/23/13 for aorto-occlusive critical limb ischemia - S/p 11/12-11/19/13 [facility] Vascular Surgery for aortoiliac thrombosis [...] encounter (statuses as of 11/17/2021) [facility] History of Past illness Narrative* Problem [...] Neurotoin BID at home Patient started on [place] postoperatively, pain controlled at time of discharge. Ischemia of extremity 10/14/2013 02/10/2014 Overview: - admitted [facility] vascular surgery twice in October 2013, s/p left femoral endarterectomy with patch, US guided access RCFA, L profundaplasty, RUFUS recanalization & stenting, CRISPIN stenting on 10/23/13 for aorto-occlusive critical limb ischemia - S/p 11/12-11/19/13 [facility] Vascular Surgery for aortoiliac thrombosis [...] encounter (statuses as of 11/18/2021) [facility] History of Past illness Narrative* Problem [...] Neurotoin BID at home Patient started on [place] postoperatively, pain controlled at time of discharge. Ischemia of extremity 10/14/2013 02/10/2014 Overview: - admitted to [facility] vascular surgery twice in October 2013, s/p left femoral endarterectomy with patch, US guided access RCFA, L profundaplasty, RUFUS recanalization & stenting, CRISPIN stenting on 10/23/13 for aorto-occlusive critical limb ischemia - S/p 11/12-11/19/13 [facility] Vascular Surgery for aortoiliac thrombosis [...] encounter (statuses as of 11/19/2021) [facility]2020 History of Past illness Narrative* Problem [...] Neurotoin BID at home Patient started on [place] postoperatively, pain controlled at time of discharge. Ischemia of extremity 10/14/2013 02/10/2014 Overview: - admitted [facility] vascular surgery twice in October 2013, s/p left femoral endarterectomy with patch, US guided access RCFA, L profundaplasty, RUFUS recanalization & stenting, CRISPIN stenting on 10/23/13 for aorto-occlusive critical limb ischemia - S/p 11/12-11/19/13 [facility] Vascular Surgery for aortoiliac thrombosis [...] encounter (statuses as of 11/19/2021) [facility] History of Past illness Narrative* Problem [...] Neurotoin BID at home Patient started on [place] postoperatively, pain controlled at time of discharge. Ischemia of extremity 10/14/2013 02/10/2014 Overview: - admitted to [facility] vascular surgery twice in October 2013, s/p left femoral endarterectomy with patch, US guided access RCFA, L profundaplasty, RUFUS recanalization & stenting, CRISPIN stenting on 10/23/13 for aorto-occlusive critical limb ischemia - S/p 11/12-11/19/13 [facility] Vascular Surgery for aortoiliac thrombosis [...] encounter (statuses as of 11/26/2021) [facility] History of Past illness Narrative* Problem [...] Neurotoin BID at home Patient started on [place] postoperatively, pain controlled at time of discharge. Ischemia of extremity 10/14/2013 02/10/2014 Overview: - admitted to [facility] vascular surgery twice in October 2013, s/p left femoral endarterectomy with patch, US guided access RCFA, L profundaplasty, RUFUS recanalization & stenting, CRISPIN stenting on 10/23/13 for aorto-occlusive critical limb ischemia - S/p 11/12-11/19/13 [facility]ascular Surgery for aortoiliac thrombosis [...] encounter (statuses as of 11/30/2021) [facility]2020 History of Past illness Narrative* Problem [...] Neurotoin BID at home Patient started on [place] postoperatively, pain controlled at time of discharge. Ischemia of extremity 10/14/2013 02/10/2014 Overview: - admitted to [facility] vascular surgery twice in October 2013, s/p left femoral endarterectomy with patch, US guided access RCFA, L profundaplasty, RUFUS recanalization & stenting, CRISPIN stenting on 10/23/13 for aorto-occlusive critical limb ischemia - S/p 11/12-11/19/13 [facility] Surgery for aortoiliac thrombosis [...] encounter (statuses as of 12/03/2021) [facility] History of Past illness Narrative* Problem [...] Neurotoin BID at home Patient started on [place] postoperatively, pain controlled at time of discharge. Ischemia of extremity 10/14/2013 02/10/2014 Overview: - admitted to [facility] vascular surgery twice in October 2013, s/p left femoral endarterectomy with patch, US guided access RCFA, L profundaplasty, RUFUS recanalization & stenting, CRISPIN stenting on 10/23/13 for aorto-occlusive critical limb ischemia - S/p 11/12-11/19/13 [facility] Vascular Surgery for aortoiliac thrombosis [...] encounter (statuses as of 12/07/2021) [facility] History of Past illness Narrative* Problem [...] Neurotoin BID at home Patient started on [place] postoperatively, pain controlled at time of discharge. Ischemia of extremity 10/14/2013 02/10/2014 Overview: - admitted to [facility] vascular surgery twice in October 2013, s/p left femoral endarterectomy with patch, US guided access RCFA, L profundaplasty, RUFUS recanalization & stenting, CRISPIN stenting on 10/23/13 for aorto-occlusive critical limb ischemia - S/p 11/12-11/19/13 [facility] Vascular Surgery for aortoiliac thrombosis [...] encounter (statuses as of 01/14/2022) [facility] History of Past illness Narrative* Problem [...] Neurotoin BID at home Patient started on [place] postoperatively, pain controlled at time of discharge. Ischemia of extremity 10/14/2013 02/10/2014 Overview: - admitted to [facility] vascular surgery twice in October 2013, s/p left femoral endarterectomy with patch, US guided access RCFA, L profundaplasty, RUFUS recanalization & stenting, CRISPIN stenting on 10/23/13 for aorto-occlusive critical limb ischemia - S/p 11/12-11/19/13 [facility] Vascular Surgery for aortoiliac thrombosis [...] encounter (statuses as of 01/14/2022) [facility] History of Past illness Narrative* Problem [...] 1.29 x 3.31cm. 07/08/2014 Hematoma stable, continue áftima wrap at discharge Ulcerative colitis 06/24/2014 11/09/2018 [...] Neurotoin BID at home Patient started on [place] postoperatively, pain controlled at time of discharge. Ischemia of extremity 10/14/2013 02/10/2014 Overview: - admitted to [facility] vascular surgery twice in October 2013, s/p left femoral endarterectomy with patch, US guided access RCFA, L profundaplasty, RUFUS recanalization & stenting, CRISPIN stenting on 10/23/13 for aorto-occlusive critical limb ischemia - S/p 11/12-11/19/13 [facility] Vascular Surgery for aortoiliac thrombosis [...] encounter (statuses as of 01/25/2022) [facility] History of Past illness Narrative* Problem [...] Neurotoin BID at home Patient started on [place] postoperatively, pain controlled at time of discharge. Ischemia of extremity 10/14/2013 02/10/2014 Overview: - admitted to [facility] vascular surgery twice in October 2013, s/p left femoral endarterectomy with patch, US guided access RCFA, L profundaplasty, RUFUS recanalization & stenting, CRISPIN stenting on 10/23/13 for aorto-occlusive critical limb ischemia - S/p 11/12-11/19/13 [facility] Vascular Surgery for aortoiliac thrombosis [...] encounter (statuses as of 01/28/2022) [facility]2020 History of Past illness Narrative* Problem [...] Neurotoin BID at home Patient started on [place] postoperatively, pain controlled at time of discharge. Ischemia of extremity 10/14/2013 02/10/2014 Overview: - admitted to [facility] vascular surgery twice in October 2013, s/p left femoral endarterectomy with patch, US guided access RCFA, L profundaplasty, RUFUS recanalization & stenting, CRISPIN stenting on 10/23/13 for aorto-occlusive critical limb ischemia - S/p 11/12-11/19/13 [facility] Vascular Surgery for aortoiliac thrombosis [...] encounter (statuses as of 01/31/2022) [facility] History of Past illness Narrative* Problem [...] 1.29 x 3.31cm. 07/08/2014 Hematoma stable, continue fátiam wrap at discharge Ulcerative colitis 06/24/2014 11/09/2018 [...] Neurotoin BID at home Patient started on [place]lo[place] postoperatively, pain controlled at time of discharge. Ischemia of extremity 10/14/2013 02/10/2014 Overview: - admitted to [facility] vascular surgery twice in October 2013, s/p left femoral endarterectomy with patch, US guided access RCFA, L profundaplasty, RUFUS recanalization & stenting, CRISPIN stenting on 10/23/13 for aorto-occlusive critical limb ischemia - S/p 11/12-11/19/13 [facility] Vascular Surgery for aortoiliac thrombosis [...] encounter (statuses as of 01/31/2022) [facility] History of Past illness Narrative* Problem [...] Neurotoin BID at home Patient started on [place]lo[place] postoperatively, pain controlled at time of discharge. Ischemia of extremity 10/14/2013 02/10/2014 Overview: - admitted to [facility] vascular surgery twice in October 2013, s/p left femoral endarterectomy with patch, US guided access RCFA, L profundaplasty, RUFUS recanalization & stenting, CRISPIN stenting on 10/23/13 for aorto-occlusive critical limb ischemia - S/p 11/12-11/19/13 [facility] Vascular Surgery for aortoiliac thrombosis [...] encounter (statuses as of 01/31/2022) [facility] History of Past illness Narrative* Problem [...] Neurotoin BID at home Patient started on [place] postoperatively, pain controlled at time of discharge. Ischemia of extremity 10/14/2013 02/10/2014 Overview: - admitted to [facility] vascular surgery twice in October 2013, s/p left femoral endarterectomy with patch, US guided access RCFA, L profundaplasty, RUFUS recanalization & stenting, CRISPIN stenting on 10/23/13 for aorto-occlusive critical limb ischemia - S/p 11/12-11/19/13 [facility] Vascular Surgery for aortoiliac thrombosis [...] encounter (statuses as of 02/03/2022) [facility] History of Past illness Narrative* Problem [...] Neurotoin BID at home Patient started on [place]lo[place] postoperatively, pain controlled at time of discharge. Ischemia of extremity 10/14/2013 02/10/2014 Overview: - admitted to [facility] vascular surgery twice in October [...] encounter (statuses as of 02/24/2022) [facility] History of Past illness Narrative* Problem [...] Neurotoin BID at home Patient started on [place]lo[place] postoperatively, pain controlled at time of discharge. Ischemia of extremity 10/14/2013 02/10/2014 Overview: - admitted to [facility] vascular surgery twice in October [...] encounter (statuses as of 02/24/2022) [facility] History of Past illness Narrative* Problem [...] Neurotoin BID at home Patient started on [place]lo[place] postoperatively, pain controlled at time of discharge. Ischemia of extremity 10/14/2013 02/10/2014 Overview: - admitted to [facility] vascular surgery twice in October [...] encounter (statuses as of 03/02/2022) [facility] History of Past illness Narrative* Problem [...] Neurotoin BID at home Patient started on [place]lo[place] postoperatively, pain controlled at time of discharge. Ischemia of extremity 10/14/2013 02/10/2014 Overview: - admitted to [facility] vascular surgery twice in October [...] encounter (statuses as of 03/10/2022) [facility] History of Past illness Narrative* Problem [...] Neurotoin BID at home Patient started on [place]lo[place] postoperatively, pain controlled at time of discharge. Ischemia of extremity 10/14/2013 02/10/2014 Overview: - admitted to [facility] vascular surgery twice in October 2013, s/p left femoral endarterectomy with patch, US guided access RCFA, L profundaplasty, RUFUS recanalization & stenting, CRISPIN stenting on 10/23/13 for aorto-occlusive critical limb ischemia - S/p 11/12-11/19/13 [facility] Vascular Surgery for aortoiliac thrombosis [...] encounter (statuses as of 03/10/2022) [facility] History of Past illness Narrative* Problem [...] Neurotoin BID at home Patient started on [place]lo[place] postoperatively, pain controlled at time of discharge. Ischemia of extremity 10/14/2013 02/10/2014 Overview: - admitted to [facility] vascular surgery twice in October 2013, s/p left femoral endarterectomy with patch, US guided access RCFA, L profundaplasty, RUFUS recanalization & stenting, CRISPIN stenting on 10/23/13 for aorto-occlusive critical limb ischemia - S/p 11/12-11/19/13 [facility] Vascular Surgery for aortoiliac thrombosis [...] encounter (statuses as of 03/11/2022) [facility] History of Past illness Narrative* Problem [...] Neurotoin BID at home Patient started on [place]lo[place] postoperatively, pain controlled at time of discharge. Ischemia of extremity 10/14/2013 02/10/2014 Overview: - admitted to [facility] vascular surgery twice in October 2013, s/p left femoral endarterectomy with patch, US guided access RCFA, L profundaplasty, RUFUS recanalization & stenting, CRISPIN stenting on 10/23/13 for aorto-occlusive critical limb ischemia - S/p 11/12-11/19/13 [facility] Vascular Surgery for aortoiliac thrombosis [...] encounter (statuses as of 03/11/2022) [facility] History of Past illness Narrative* Problem [...] Neurotoin BID at home Patient started on [place]lo[place] postoperatively, pain controlled at time of discharge. Ischemia of extremity 10/14/2013 02/10/2014 Overview: - admitted to [facility] vascular surgery twice in October 2013, s/p left femoral endarterectomy with patch, US guided access RCFA, L profundaplasty, RUFUS recanalization & stenting, CRISPIN stenting on 10/23/13 for aorto-occlusive critical limb ischemia - S/p 11/12-11/19/13 [facility] Vascular Surgery for aortoiliac thrombosis [...] encounter (statuses as of 03/18/2022) [facility] History of Past illness Narrative* Problem [...] Neurotoin BID at home Patient started on [place]lo[place] postoperatively, pain controlled at time of discharge. Ischemia of extremity 10/14/2013 02/10/2014 Overview: - admitted to [facility] vascular surgery twice in October 2013, s/p left femoral endarterectomy with patch, US guided access RCFA, L profundaplasty, RUFUS recanalization & stenting, CRISPIN stenting on 10/23/13 for aorto-occlusive critical limb ischemia - S/p 11/12-11/19/13 [facility] Vascular Surgery for aortoiliac thrombosis [...] encounter (statuses as of 03/24/2022) [facility] History of Past illness Narrative* Problem [...] Neurotoin BID at home Patient started on [place]lo[place] postoperatively, pain controlled at time of discharge. Ischemia of extremity 10/14/2013 02/10/2014 Overview: - admitted to [facility] vascular surgery twice in October [...] encounter (statuses as of 04/01/2022) [facility] History of Past illness Narrative* Problem [...] Neurotoin BID at home Patient started on [place]lo[place] postoperatively, pain controlled at time of discharge. Ischemia of extremity 10/14/2013 02/10/2014 Overview: - admitted to [facility] vascular surgery twice in October 2013, s/p left femoral endarterectomy with patch, US guided access RCFA, L profundaplasty, RUFUS recanalization & stenting, CRISPIN stenting on 10/23/13 for aorto-occlusive critical limb ischemia - S/p 11/12-11/19/13 [facility] V[facility] Surgery for aortoiliac thrombosis [...] encounter (statuses as of 06/19/2022) [facility] History of Past illness Narrative* Problem [...] Neurotoin BID at home Patient started on [place]loaf postoperatively, pain controlled at time of discharge. Ischemia of extremity 10/14/2013 02/10/2014 Overview: - admitted to [facility] vascular [facility] twice in October [...] encounter (statuses as of 08/02/2022) [facility] History of Past illness Narrative* Problem [...] for aorto-occlusive critical limb ischemia, CAD previous MO, DM, HTN, DLD, COPD, UC/IBD on sulfasalazine [...] Neurotoin BID at home Patient started on [place]lo[place] postoperatively, pain controlled at time of discharge. Urinary retention 10/25/2013 08/18/2022 Overview: Home med: tamsulosin Plan: -Resume Tamsulosin DISPOSITION AND FOLLOW-UP 10/25/20132022 Overview: CM following for d/c needs. PT/OT to evaluate-->recommending home PT 07/08/2014 Discharge with home care today Ischemia of extremity 10/14/2013 02/10/2014 Overview: - admitted to [facility] twice in October 2013, s/p left femoral endarterectomy with patch, US guided access RCFA, L profundaplasty, RUFUS recanalization & stenting, CRISPIN stenting on 10/23/13 for aorto-occlusive critical limb ischemia - S/p 11/12-11/19/13 [facility] Surgery for aortoiliac thrombosis [...] encounter (statuses as of 08/25/2022) [facility] History of Past illness Narrative* Problem [...] for aorto-occlusive critical limb ischemia, CAD previous MO, DM, HTN, DLD, COPD, UC/IBD on sulfasalazine [...] Neurotoin BID at home Patient started on [place]lo[place] postoperatively, pain controlled at time of discharge. Urinary retention 10/25/2013 08/18/2022 Overview: Home med: tamsulosin Plan: -Resume Tamsulosin DISPOSITION AND FOLLOW-UP 10/25/20132022 Overview: CM following for d/c needs. PT/OT to evaluate-->recommending home PT 07/08/2014 Discharge with home care today Ischemia of extremity 10/14/2013 02/10/2014 Overview: - [facility] to [facility] twice in October 2013, s/p left femoral endarterectomy with patch, US guided access RCFA, L profundaplasty, RUFUS recanalization & stenting, CRISPIN stenting on 10/23/13 for aorto-occlusive critical limb ischemia - S/p 11/12-11/19/13 [facility] V[facility] Surgery for aortoiliac thrombosis [...] encounter (statuses as of 08/27/2022) [facility] History of Past illness Narrative* Problem [...] for aorto-occlusive critical limb ischemia, CAD previous MO, DM, HTN, DLD, COPD, UC/IBD on sulfasalazine [...] Neurotoin BID at home Patient started on Sugarloaf postoperatively, pain controlled at time of discharge. Urinary retention 10/25/2013 08/18/2022 Overview: Home med: tamsulosin Plan: -Resume Tamsulosin DISPOSITION AND FOLLOW-UP 10/25/20132022 Overview: CM following for d/c needs. PT/OT to evaluate-->recommending home PT 07/08/2014 Discharge with home care today Ischemia of extremity 10/14/2013 02/10/2014 Overview: - [facility] twice in October 2013, s/p left femoral endarterectomy with patch, US guided access RCFA, L profundaplasty, RUFUS recanalization & stenting, CRISPIN stenting on 10/23/13 for aorto-occlusive critical limb ischemia - S/p 11/12-11/19/13 [facility] V[facility] Surgery for aortoiliac thrombosis [...] encounter (statuses as of 08/27/2022) [facility] History of Past illness Narrative* Problem [...] for aorto-occlusive critical limb ischemia, CAD previous MO, DM, HTN, DLD, COPD, UC/IBD on sulfasalazine [...] Neurotoin BID at home Patient started on Sugarloaf postoperatively, pain controlled at time of discharge. [...] encounter (statuses as of 08/29/2022) [facility] History of Past illness Narrative* Problem [...] for aorto-occlusive critical limb ischemia, CAD previous MO, DM, HTN, DLD, COPD, UC/IBD on sulfasalazine [...] Neurotoin BID at home Patient started on Sugarloaf postoperatively, pain controlled at time of discharge. Urinary retention 10/25/2013 08/18/2022 Overview: Home med: tamsulosin Plan: -Resume Tamsulosin DISPOSITION AND FOLLOW-UP 10/25/20132022 Overview: CM following for d/c needs. PT/OT to evaluate-->recommending home PT 07/08/2014 Discharge with home care today Ischemia of extremity 10/14/2013 02/10/2014 Overview: - [facility] twice in October [...] encounter (statuses as of 09/02/2022) [facility] History of Past illness Narrative* Problem [...] for aorto-occlusive critical limb ischemia, CAD previous MO, DM, HTN, DLD, COPD, UC/IBD on sulfasalazine [...] Neurotoin BID at home Patient started on Sugarloaf postoperatively, pain controlled at time of discharge. Urinary retention 10/25/2013 08/18/2022 Overview: Home med: tamsulosin Plan: -Resume Tamsulosin DISPOSITION AND FOLLOW-UP 10/25/20132022 Overview: CM following for d/c needs. PT/OT to evaluate-->recommending home PT 07/08/2014 Discharge with home care today Ischemia of extremity 10/14/2013 02/10/2014 Overview: - [facility] twice in October [...] encounter (statuses as of 09/07/2022) [facility] History of Past illness Narrative* Problem [...] for aorto-occlusive critical limb ischemia, CAD previous MO, DM, HTN, DLD, COPD, UC/IBD on sulfasalazine [...] Neurotoin BID at home Patient started on Sugarloaf postoperatively, pain controlled at time of discharge. Urinary retention 10/25/2013 08/18/2022 Overview: Home med: tamsulosin Plan: -Resume Tamsulosin DISPOSITION AND FOLLOW-UP 10/25/20132022 Overview: CM following for d/c needs. PT/OT to evaluate-->recommending home PT 07/08/2014 Discharge with home care today Ischemia of extremity 10/14/2013 02/10/2014 Overview: - [facility] twice in October 2013, s/p left femoral endarterectomy with patch, US guided access RCFA, L profundaplasty, RUFUS recanalization & stenting, CRISPIN stenting on 10/23/13 for aorto-occlusive critical limb ischemia - S/p 11/12-11/19/13 [facility] V[facility] Surgery for aortoiliac thrombosis [...] encounter (statuses as of 10/01/2022) [facility] History of Past illness Narrative* Problem [...] for aorto-occlusive critical limb ischemia, CAD previous MO, DM, HTN, DLD, COPD, UC/IBD on sulfasalazine [...] Neurotoin BID at home Patient started on Sugarloaf postoperatively, pain controlled at time of discharge. Urinary retention 10/25/2013 08/18/2022 Overview: Home med: tamsulosin Plan: -Resume Tamsulosin DISPOSITION AND FOLLOW-UP 10/25/2013 Overview: CM following for d/c needs. PT/OT to evaluate-->recommending home PT 07/08/2014 Discharge with home care today Ischemia of extremity 10/14/20132013 Overview: - [facility] twice in October 2013, s/p left femoral endarterectomy with patch, US guided access RCFA, L profundaplasty, RUFUS recanalization & stenting, CRISPIN stenting on 10/23/13 for aorto-occlusive critical limb ischemia - S/p 11/12-11/19/13 [facility] Vascular Surgery for aortoiliac thrombosis [...] encounter (statuses as of 12/27/2022) [facility] History of Past illness Narrative* Problem [...] for aorto-occlusive critical limb ischemia, CAD previous MO, DM, HTN, DLD, COPD, UC/IBD on sulfasalazine [...] Neurotoin BID at home Patient started on Sugarloaf postoperatively, pain controlled at time of discharge. [...] encounter (statuses as of 12/27/2022) [facility] History of Past illness Narrative* Problem [...] for aorto-occlusive critical limb ischemia, CAD previous MO, DM, HTN, DLD, COPD, UC/IBD on sulfasalazine [...] Neurotoin BID at home Patient started on Sugarloaf postoperatively, pain controlled at time of discharge. Urinary retention 10/25/2013 08/18/2022 Overview: Home med: tamsulosin Plan: -Resume Tamsulosin DISPOSITION AND FOLLOW-UP 10/25/2013 Overview: CM following for d/c needs. PT/OT to evaluate-->recommending home PT 07/08/2014 Discharge with home care today Ischemia of extremity 10/14/20132013 Overview: - [facility] twice in October 2013, s/p left femoral endarterectomy with patch, US guided access RCFA, L profundaplasty, RUFUS recanalization & stenting, CRISPIN stenting on 10/23/13 for aorto-occlusive critical limb ischemia - S/p 11/12-11/19/13 [facility] Vascular Surgery for aortoiliac thrombosis [...] encounter (statuses as of 01/28/2023) [facility] History of Past illness Narrative* Problem [...] for aorto-occlusive critical limb ischemia, CAD previous MO, DM, HTN, DLD, COPD, UC/IBD on sulfasalazine [...] Neurotoin BID at home Patient started on Sugarloaf postoperatively, pain controlled at time of discharge. Urinary retention 10/25/2013 08/18/2022 Overview: Home med: tamsulosin Plan: -Resume Tamsulosin DISPOSITION AND FOLLOW-UP 10/25/2013 Overview: CM following for d/c needs. PT/OT to evaluate-->recommending home PT 07/08/2014 Discharge with home care today Ischemia of extremity 10/14/20132013 Overview: - [facility] twice in October 2013, s/p left femoral endarterectomy with patch, US guided access RCFA, L profundaplasty, RUFUS recanalization & stenting, CRISPIN stenting on 10/23/13 for aorto-occlusive critical limb ischemia - S/p 11/12-11/19/13 [facility] V[facility] Surgery for aortoiliac thrombosis [...] encounter (statuses as of 03/01/2023) [facility] History of Past illness Narrative* Problem [...] for aorto-occlusive critical limb ischemia, CAD previous MO, DM, HTN, DLD, COPD, UC/IBD on sulfasalazine [...] Neurotoin BID at home Patient started on Sugarloaf postoperatively, pain controlled at time of discharge. [...] encounter (statuses as of 03/31/2023) [facility] History of Past illness Narrative* Problem [...] for aorto-occlusive critical limb ischemia, CAD previous MO, DM, HTN, DLD, COPD, UC/IBD on sulfasalazine [...] Neurotoin BID at home Patient started on Sugarloaf postoperatively, pain controlled at time of discharge. Urinary retention 10/25/2013 08/18/2022 Overview: Home med: tamsulosin Plan: -Resume Tamsulosin DISPOSITION AND FOLLOW-UP 10/25/2013 Overview: CM following for d/c needs. PT/OT to evaluate-->recommending home PT 07/08/2014 Discharge with home care today Ischemia of extremity 10/14/20132013 Overview: - [facility] twice in October [...] encounter (statuses as of 05/22/2023) [facility] History of Past illness Narrative* Problem [...] for aorto-occlusive critical limb ischemia, CAD previous MO, DM, HTN, DLD, COPD, UC/IBD on sulfasalazine [...] Neurotoin BID at home Patient started on Sugarloaf postoperatively, pain controlled at time of discharge. Urinary retention 10/25/2013 08/18/2022 Overview: Home med: tamsulosin Plan: -Resume Tamsulosin DISPOSITION AND FOLLOW-UP 10/25/2013 Overview: CM following for d/c needs. PT/OT to evaluate-->recommending home PT 07/08/2014 Discharge with home care today Ischemia of extremity 10/14/20132013 Overview: - [facility] twice in October [...] encounter (statuses as of 05/31/2023) [facility] History of Past illness Narrative* Problem [...] for aorto-occlusive critical limb ischemia, CAD previous MO, DM, HTN, DLD, COPD, UC/IBD on sulfasalazine [...] Neurotoin BID at home Patient started on Sugarloaf postoperatively, pain controlled at time of discharge. Urinary retention 10/25/2013 08/18/2022 Overview: Home med: tamsulosin Plan: -Resume Tamsulosin DISPOSITION AND FOLLOW-UP 10/25/2013 Overview: CM following for d/c needs. PT/OT to evaluate-->recommending home PT 07/08/2014 Discharge with home care today Ischemia of extremity 10/14/20132013 Overview: - [facility] twice in October 2013, s/p left femoral endarterectomy with patch, US guided access RCFA, L profundaplasty, RUFUS recanalization & stenting, CRISPIN stenting on 10/23/13 for aorto-occlusive critical limb ischemia - S/p 11/12-11/19/13 [facility] V[facility] Surgery for aortoiliac thrombosis [...] encounter (statuses as of 05/31/2023) [facility]2020 Evaluation note* Diagnosis s/p left femoral endarterectomy/aortoiliac stenting 10/08/2019- Primary Peripheral vascular disease, unspecified PVD (peripheral vascular disease) (HCC) Peripheral vascular disease, unspecified Smoker Tobacco use disorder [facility] Miquel Santiago [facility] April 04, 2023 10:18am Note Date/Time April 04, 2023 1 0:18am [facility] Medical Records Department [address] [place] [address] Counseling Note - Pharmacy 04/04/23 1017 MR#: [id number] Acct: [id number] Name: PEDRO PABLO SIERRA Rep #:[id number] : 1950 72 From: Miquel Santiago PCP: Dr. Daija Morton MD Status:ADM I N Y Location: [address] Pharm[address] [facility] [...] Signature (if applicable): Date CC: ~ Signed [facility] Work Phone: Discharge summary Author Frankie Galindo [facility] April 04, 2023 10:03am Note Date/Time April 04, 2023 1 0:03am [facility] Medical Records Department [address] [place] [address] Discharge Summary 04/04/23 1002 MR#: [id number] Acct: [id number] Name: PEDRO PABLO SIERRA Rep #:[id number] : 1950 72 From: Frankie Galindo MD PCP: Dr. Daija Morton MD Status:ADM I N Location: [place] [address]1 Providers Date of Admission: 03/30/23 Primary Care [...] - Requested for PT OT eval and director social welfare to assist with discharge planning 3. Chronic [...] % (Auto) 64.4, Lymph % (Auto) 23.6, Bee % (Auto) 6.3, Eos % (Auto) 3.3, [...] cbc while on iv abx. Fax to [phone] sennosides-docusate sodium [Stool Softener-Stimulant Laxat] 8.6-50 mg [...] in before D/C Order can be placed): [facility] Charges/Coding Visit Charges Inpatient E&M: 75164 Disch Hosp >30min 04/04/23 1003 <Electronically signed by Frankie Galindo MD> Cosigner Signature (if applicable): CC: Dr. Daija Morton MD; Dr. Frankie Galindo MD~ Signed [facility] Work Phone: Evaluation + Plan note No data available for this section [facility] Evaluation note* Diagnosis History of recent hospitalization- Primary Personal history of unspecified disease RUQ abdominal pain Abdominal pain, right upper quadrant Cholecystitis Cholecystitis, unspecified Dysuria Hematuria, unspecified type Essential hypertension Unspecified essential hypertension Anemia, unspecified type Smoker Tobacco use disorder Encounter for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 E&M: 46599 Init Hosp L2 07/24/232109 <Electronically signed by Андрей Cooley MD> Cosigner Signature (if applicable): CC: Dr. Daija Morton MD; Dr. Андрей Cooley MD~ Signed [facility] Work Phone: History and physical note Author Lisha Talamantes [facility] Note Date/Time August 25, 2024 7:00 pm [facility] Medical Records Department [address] [place] [address] H&P Exam - Hospitalist 08/25/24 1820 MR#: [id number] Acct: [id number] Name: PEDRO PABLO SIERRA Rep #:[id number] : 1950 74 From: Lisha Talamantes DO PCP: Dr. Daija Morton MD Status:ADM I NO Location: HI3 LO313-5 HPI - General General Date of Admission: 08/25/24 Date of Service: 08/25/24 Chief Complaint: Diarrhea/generalized weakness HPI Narrative PEDRO PABLO SEIRRA, is a 74 M who presented to the emergency department [facility] on 08/25/2024 with a chief complaint of generalized weakness and diarrhea. Patient had recently been at [facility] and was discharged about 5 [...] Chest x-ray is unremarkable for acute findings. [facility] Medical History Compression fx, lumbar spine Hypertension [...] 78.4 H, Lymph % (Auto) 10.3 L, Bee % (Auto) 9.9, Eos % (Auto) 0.3, [...] the current livingenvironment -Was recently discharged from [facility] however patient wasadamant that he [...] need clarified Charges/Coding Visit Charges Inpatient E&M: 30839 Init Hosp L2 08/25/24 1900 <Electronically signed by Lisha Talamantes DO> Cosigner Signature (if applicable): CC: Dr. Daija Morton MD; Dr. Lisha Talamantes DO~ Signed [facility] Work Phone: History and physical note Author Shilpa Contreras [facility] Note Date/Time December 13, 2024 8:50 pm [facility] Medical Records Department [address] [place] [address] H&P Exam - Hospitalist 12/13/241948 MR#: [id number] Acct: [id number] Name: PEDRO PABLO SIERRA Rep #:[id number] : 1950 74 From: Shilpa Contreras MD PCP: Dr. Daija Morton MD Status:ADM I N Location: [place] [address] HPI - General General Date of Admission: [...] PJ, Tobacco use who presents to the [facility] ED on 12/13/2024 with history of [...] component requested ABG and will trial BiPAP. [facility] Medical History Weakness Debility Failure to thrive [...] % (Auto) 67.3, Lymph % (Auto) 19.5, Bee% (Auto) 8.9, Eos % (Auto) 3.0, Baso [...] significant change since last exam. Reading Location: [id number] Assessment & Plan Assessment/Plan (1) COPD exacerbation: [...] PJ, Tobacco use who presents to the [facility] ED on 12/13/2024 with history of [...] 0.9. #16. CODE status: Patient healthcare power real estate attorney and living will are not in [...] 16 minutes. Charges/Coding Visit Charges Inpatient E&M: 78193 Init Hosp L3 Procedures Hospitalists Procedures: 31726 Advncd Care Plan 30 Min 12/13/242049 <Electronically signed by Shilpa Contreras MD> Cosigner Signature (if applicable): CC: Dr. Shilpa Contreras MD; Dr. Daija Morton MD~ Signed [facility] Work Phone: History and physical note Author Frankie Galindo [facility] Note Date/Time January 05, 2025 2:02 pm [facility] Medical Records Department [address] [place] [address] H&P Exam - Hospitalist 01/05/25 1336 MR#: [id number] Acct: [id number] Name: PEDRO PABLO SIERRA Rep #:[id number] : 1950 74 From: Frankie Galindo MD PCP: Dr. Lorraine Mena MD Status:A DM IN Location: [facility] [id number]- [id number] HPI - General General Date of Admission: 01/05/25 Date of Service: 01/05/25 Chief Complaint: Suspected PEG tomorrow found HPI Narrative PEDRO PABLO SIERRA, is a 74 M with recent diagnosis of acute left MCA CVA discharged to a jail facility. Patient had a PEG tube placed [...] to a monitored bed for further management [facility] Medical History Acute CVA (cerebrovascular accident) Aphasia [...] 76.7 H, Lymph % (Auto) 14.2 L, Bee % (Auto) 7.0, Eos % (Auto) 1.2, [...] IMPRESSION: COPD. No acute findings. Reading Location: [id number] X-Ray 01/05/25 13:02 IMPRESSION: A PEG tube tip is projected in the region of the stomach. Contrast material is identified within the stomach. There is no extravasation of the contrast. 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 Was [...] 78 Minutes Charges/Coding Visit Charges Inpatient E&M: 64336 Init Hosp L3 01/05/25 1402 <Electronically signed by Frankie Galindo MD> Cosigner Signature (if applicable): CC: Dr. Frankie Galindo MD; Dr. Lorraine Mena MD~ Signed [facility] Work Phone: [facility] Work Phone: [facility] Work Phone: [facility] Work Phone: [phone] Discharge instructionsW[facility] Work Phone: [facility] Work Phone: [facility] Work Phone: Hospital Discharge instructions Additional Instructions Ice to your rib cage. Support your sore ribs with a pillow. Your chest x-ray did not show any broken ribs sometimes however there are small cracks in the ribs we cannot see on the x-ray. [place] for more severe pain. Otherwise use Tylenol. If you are using the pain medication [place] then do not use Tylenol with it. Follow-up with your doctor as needed. Keep the wounds on your forearms clean. Clean daily with soap and water. Patient apply antibiotic ointment. Watch for any signs of infection if seen follow-up.[facility] Work Phone: Hospital Discharge instructions Additional Instructions Please use the walker and follow-up with your primary care doctor.[facility] Work Phone: Progress note No data available for this section [facility] Reason for referral (narrative)* Outpatient Procedure (Routine) - Closed Specialty Diagnoses / Procedures Referred By Morris t Referred To Contact [facility] Diagnoses COPD with chronic bronchitis (HCC) Procedures OXIMETRY WITH AMBULATION NONINVASIVE EAR/PULSE OXIMETRY MULTIPLE DETER Emilie Jauregui PA-C [address] [address] Referral ID Status Reason Start Date Expiration Date V isits Requested Visits Authorized [id number] Closed Auto-Generate d Referral 11/05/2021 06/18/2022 1 1 * Outpatient Procedure (Routine) - Closed Specialty Diagnoses / Procedures Referred By Contchelo t Referred To Contact RESPIRATORY [facility] Diagn[facility] COPD with chronic bronchitis (HCC) Procedures LUNG DIFFUSION CAPACITY (DLCO) DIFFUSING CAPACITY Emilie Jauregui PA-C [address] [address] [address] Referral ID Status Reason Start Date Expiration Date V isits Requested Visits Authorized [id number] Closed Auto-Generate d Referral 11/05/2021 06/18/2022 1 1 * Outpatient Procedure (Routine) - Closed Specialty Diagnoses / Procedures Referred By Morris t Referred To [facility] Diagnoses COPD with chronic bronchitis (HCC) Procedures SPIROMETRY BASELINE ONLY SPMTRY W/VC EXPIRATORY BRIAN W/WO MXML VOL VNTJ Emilie Jauregui PA-C [address] [address] Referral ID Status Reason Start Date Expiration Date V isits Requested Visits Authorized [id number] Closed Auto-Generate d Referral 11/05/2021 06/18/2022 1 1 [facility] for referral (narrative)* Outpatient Procedure (Routine) - Pending Review Specialty Diagnoses / Procedures Referred By Morris t Referred To Contact [facility] Diagnoses Essential hypertension Chest pain, unspecified type Procedures ECG COMPLETE ECG ROUTINE ECG W/LEAST 12 LDS W/I&R Anjel Braga APRN.CNP [address] [place] [address] [facility] [address] [place] [id number] Referral ID Status Reason Start Date Expiration Date Visits Requested Visits Authorized [id number] Pending Review Auto-Generat ed Referral 01/28/2022 01/28/2023 1 1 [facility] for referral (narrative)* Outpatient Procedure (Routine) - Authorized Specialty Diagnoses / Procedures Referred By Contac t Referred To Contact [facility] Diagnoses PVD (peripheral vascular disease) (HCC) Procedures PVR LEG COREY VAS LAB PVR LEG COREY VAS LAB NON-INVASIVE PHYSIOLOGIC STUDY EXTREMITY [address] [place] [address] [place] [address] [address] Referral ID Status Reason Start Date Expiration Date Visits Requested Visits Authorized [id number] Authorized Auto-Generat ed Referral 01/31/2022 01/31/2023 1 1 [facility] for referral (narrative)* Outpatient Procedure (Routine) - Authorized Specialty Diagnoses / Procedures Referred By Contac t Referred To Contact [facility] Diagnoses Peripheral arterial disease (HCC) PVD (peripheral vascular disease) (HCC) Procedures PVR LEG COREY VAS LAB NON-INVASIVE PHYSIOLOGIC STUDY EXTREMITY [address] [place] [address] [place] [address] [id number] [place] [address] Referral ID Status Reason Start Date Expiration Date Visits Requested Visits Authorized [id number] Authorized Auto-Generat ed Referral 12/26/2022 12/26/2023 1 1 [facility] Outpatient Procedure (Routine) - Authorized Specialty Diagnoses / Procedures Referred By Contac t Referred To Contact [facility] Diagnoses Peripheral arterial disease (HCC) Procedures PVR LEG COREY VAS LAB NON-INVASIVE PHYSIOLOGIC STUDY EXTREMITY 3 [place] [address] [place] [address] [facility] [address] [place] [address] Referral ID Status Reason Start Date Expiration Date Visits Requested Visits Authorized [id number] Authorized Auto-Generat ed Referral 01/02/2024 01/01/2025 1 1 [facility] for referral (narrative)No reason for referral [...] FoundDocuments on File Type Date Recorded Patient Benchroom Shop Optician Expl anation Advance Directive(s) 10/24/2019 3:38 PM [...] Documents on File Type Date Recorded Patient Benchroom Shop Optician Expl anation Advance Directive(s) 08/29/2021 6:53 PM Advance Directive(s) 08/22/2021 7:53 PM Advance Directive(s) 04/10/2020 4:06 PM Advance Directive(s) 12/17/2019 10:49 AM Advance Directive(s) 10/24/2019 3:38 PM Advance Directive(s) 10/17/2019 9:43 AM Advance Directive(s) 10/08/2019 7:18 AM Advance Directive(s) 09/04/2019 1:38 PM Advance Directive(s) 02/07/2016 12:11 AM Advance Directive Response Recorded Date/ Time Name of Medical Power of Dust Mixer eloina stephens e- ex August 12, 2021 1:39am Name of Medical Power of Dust Mixer Joseph Burrell August 18, 2021 11:56pm Advance Directives Yes March 22, 2016 4:03pm Living Will No September 17, 2021 5:48pm Power of Dust Mixer Yes September 17 5:48pm Advance Directive Response Recorded Date/ Time Name of Medical Power of Dust Mixer eloina stephens e- ex August 12, 2021 1:39am Name of Medical Power of Dust Mixer Joseph Burrell August 18, 2021 11:56pm Name of Medical Power of Dust Mixer joseph burrell September 17, 2021 5:48pm Advance Directives Yes March 22, 2016 4:03pm Living Will No October 08, 2021 2:20pm Power of Dust Mixer No October 08 2:20pm Documents on File Type Date Recorded Patient Benchroom Shop Optician Expl anation Advance Directive(s) 08/29/2021 6:53 PM [...] Date/ Time Name of Medical Power of Dust Mixer eloina stephens e- ex August 12, 2021 1:39am Name of Medical Power of Dust Mixer Joseph Burrell August 18, 2021 11:56pm Name of Medical Power of Dust Mixer joseph burrell September 17, 2021 5:48pm Advance Directives Yes March 22, 2016 4:03pm Living Will Yes November 25, 2021 5 :33pm Power of Dust Mixer Yes November 25, 2021 5:33pm Advance Directive Response Recorded Date/ Time Name of Medical Power of Dust Mixer eloina stephens e- ex August 12, 2021 1:39am Name of Medical Power of Dust Mixer Joseph Burrell August 18, 2021 11:56pm Name of Medical Power of Dust Mixer joseph burrell September 17, 2021 5:48pm Advance Directives Yes March 22, 2016 4:03pm Living Will Yes November 25, 2021 1 1:06pm Power of Dust Mixer No November 25, 2021 11:06pm Advance Directive Response Recorded Date/ Time Name of Medical Power of Dust Mixer Joseph Burrell August 18, 2021 11:56pm Name of Medical Power of Dust Mixer joseph burrell September 17, 2021 5:48pm Name of Medical Power of Dust Mixer MICHELLE RICHMOND November 25, 2021 5:33pm Advance Directives Yes March 22, 2016 4:03pm Living Will Yes November 25, 2021 1 1:06pm Power of Dust Mixer No November 25, 2021 11:06pm Advance Directive Response Recorded Date/ Time Name of Medical Power of Dust Mixer joseph burrell September 17, 2021 5:48pm Name of Medical Power of Dust Mixer MICHELLEADRIANA REEDON November 25, 2021 5:33pm Advance Directives Yes March 22, 2016 4:03pm Living Will Yes November 25, 2021 1 1:06pm Power of Dust Mixer No November 25, 2021 11:06pm Advance Directive Response Recorded Date/ Time Name of Medical Power of Dust Mixer MICHELLE RICHMOND November 25, 2021 5:33pm Advance Directives Yes March 22, 2016 4:03pm Living Will Yes November 25, 2021 1 1:06pm Power of Dust Mixer No November 25, 2021 11:06pm Advance Directive Response Recorded Date/ Time Name of Medical Power of Dust Mixer MICHELLE RICHMOND November 25, 2021 5:33pm Name of Medical Power of Dust Mixer recalled January 28, 2022 3:14pm Advance Directives Yes March 22, 2016 4:03pm Living Will Yes January 28 3:14pm Power of Dust Mixer Yes January 28 022 3:14pm Documents on File Type Date Recorded Patient Benchroom Shop Optician Expl anation Advance Directive(s) 10/24/2019 3:38 PM Advance Directive Response Recorded Date/ Time Name of Medical Power of Dust Mixer MICHELLE RICHMOND November 25, 2021 5:33pm Name of Medical Power of Dust Mixer recalled January 28, 2022 3:14pm Advance Directives Yes March 22, 2016 4:03pm Living Will Yes March 02, 2022 3:17pm Power of Dust Mixer No February 3:17pm Advance Directive Response Recorded Date/ Time Name of Medical Power of Dust Mixer MICHELLE RICHMOND November 25, 2021 5:33pm Name of Medical Power of Dust Mixer recalled January 28, 2022 3:14pm Advance Directives Yes March 22, 2016 4:03pm Living Will No March 07, 2022 5:26pm Power of Dust Mixer No February 5:26pm Advance Directive Response Recorded Date/ Time Name of Medical Power of Dust Mixer MICHELLE RICHMOND November 25, 2021 5:33pm Name of Medical Power of Dust Mixer recalled January 28, 2022 3:14pm Advance Directives Yes March 22, 2016 4:03pm Living Will No March 08, 2022 8:17pm Power of Dust Mixer No February 8:17pm Advance Directive Response Recorded Date/ Time Advance Directives Yes March 22, 2016 3:03pm Living Will No March 08, 2022 7:17pm Power of Dust Mixer No February 7:17pm Advance Directive Response Recorded Date/ Time Advance Directives Yes March 22, 2016 4:03pm Living Will No October 21, 2022 6: 58pm Power of Dust Mixer No October 21, 2022 6:58pm Latest Code [...] Date/ Time Name of Medical Power of Dust Mixer JOSEPH Euceda December 31, 2022 3:19pm Advance Directives Yes March 22, 2016 4:03pm Living Will Yes December 31, 2022 3:19pm Power of Dust Mixer Yes December 31 3:19pm Advance Directive Response Recorded Date/ Time Name of Medical Power of Dust Mixer JOSEPH Euceda December 31, 2022 3:19pm Name of Medical Power of Dust Mixer Joseph February 17, 2023 11:06pm Advance Directives Yes March 22, 2016 4:03pm Living Will Yes February 17 11:06pm Power of Dust Mixer Yes February 17, 2023 11:06pm Advance Directive Response Recorded Date/ Time Name of Medical Power of Dust Mixer Joseph Burrell March 29, 2023 7:22pm Advance Directives Yes March 22, 2016 4:03pm Living Will No March 30 3:32pm Power of Dust Mixer No March 30, 2023 3:32pm Name of Medical Power of Dust Mixer JOSEPH Euceda December 31, 2022 3:19pm Name of Medical Power of Dust Mixer Joseph February 17, 2023 11:06pm Advance Directive Response Recorded Date/ Time Name of Medical Power of Dust Mixer Joseph Burrell March 29, 2023 7:22pm Advance Directives Yes March 22, 2016 4:03pm Living Will No March 30 9:04pm Power of Dust Mixer No March 30, 2023 9:04pm Name of Medical Power of Dust Mixer JOSEPH BURRELL- E X December 31, 2022 3:19pm Name of Medical Power of Dust Mixer Joseph February 17, 2023 11:06pm Advance Directive Response Recorded Date/ Time Name of Medical Power of Dust Mixer Joseph Burrell March 29, 2023 6:22pm Advance Directives Yes March 22, 2016 3:03pm Living Will No March 30 8:04pm Power of Dust Mixer No March 30, 2023 8:04pm Advance Directive Response Recorded Date/ Time Name of Medical Power of Dust Mixer Joseph Burrell March 29, 2023 6:22pm Name of Medical Power of Dust Mixer Joseph Burrell July 24, 2023 5:27pm Advance Directives Yes March 22, 2016 3:03pm Living Will Yes July 24 5:27pm Power of Dust Mixer Yes July 24, 2023 5:27pm Advance Directive Response Recorded Date/ Time Name of Medical Power of Dust Mixer Joseph Burrell July 24, 2023 9:55pm Advance Directives Yes March 22, 2016 3:03pm Living Will No July 30, 024 8:34pm Power of Dust Mixer No July 30, 2023 8:34pm Advance Directive Response Recorded Date/ Time Name of Medical Power of Dust Mixer Joseph Burrell July 24, 2023 9:55pm Name of Medical Power of Dust Mixer Nahed Roxy July 31, 2023 12:57am Advance Directives Yes March 22, 2016 3:03pm Living Will No July 31, 024 12:57am Power of Dust Mixer Yes July 31, 2023 12:57am Date Activated Date Inactivated Comments 08/23/2021 7:55 AM 09/13/2021 7:43 PM Question Answer Comments Full Code Order Discussed With: Patient Date Activated Date Inactivated Comments 10/01/2020 11:51 PM 08/21/2021 11:26 AM Advance Directive Response Recorded Date/ Time Name of Medical Power of Dust Mixer Joseph Burrell March 29, 2023 6:22pm Advance Directives Yes March 22, 2016 3:03pm Living Will No March 30 8:04pm Power of Dust Mixer No March 30, 2023 8:04pm Name of Medical Power of Dust Mixer Joseph February 17, 2023 10:06pm Advance Directive Response Recorded Date/ Time Living Will No August 25, 2024 4:43pm Power of Dust Mixer No August 25 4:43pm Advance Directives Yes March 22, 2016 4:03pm Advance Directive Response Recorded Date/ Time Living Will No August 25, 2024 7:21pm Power of Dust Mixer No August 25 7:21pm Advance Directives Yes March 22, 2016 4:03pm Advance Directive Response Recorded Date/ Time Living Will No August 25, 2024 7:21pm Do you have a Healthcare Power of Dust Mixer? No August 25, 2024 7:21pm Advance Directives Yes March 22, 2016 4:03pm Advance Directive Response Recorded Date/ Time Do you have a Healthcare Power of Dust Mixer? No December 13, 2024 5:49pm Living Will No August 25, 2024 7:21pm Do you have a Healthcare Power of Dust Mixer? No August 25, 2024 7:21pm Advance Directives Yes March 22, 2016 4:03pm Advance Directive Response Recorded Date/ Time Do you have a Healthcare Power of Dust Mixer? Yes December 13, 2024 9:26pm Name of Medical Power of Dust Mixer Joseph Burrell December 13, 2024 9:26pm Living Will No August 25, 2024 7:21pm Do you have a Healthcare Power of Dust Mixer? No August 25, 2024 7:21pm Advance Directives Yes March 22, 2016 4:03pm Advance Directive Response Recorded Date/ Time Do you have a Healthcare Power of Dust Mixer? Yes December 13, 2024 9:26pm Name of Medical Power of Dust Mixer Joseph Burrell December 13, 2024 9:26pm Do you have a Healthcare Power of Dust Mixer? Yes December 17, 2024 4:23pm Living Will No August 25, 2024 7:21pm Do you have a Healthcare Power of Dust Mixer? No August 25, 2024 7:21pm Advance Directives Yes March 22, 2016 4:03pm Advance Directive Response Recorded Date/ Time Do you have a Healthcare Power of Dust Mixer? Yes December 13, 2024 9:26pm Name of Medical Power of Dust Mixer Joseph Burrell December 13, 2024 9:26pm Do you have a Healthcare Power of Dust Mixer? Yes December 17, 2024 4:23pm Do you have a Healthcare Power of Dust Mixer? Yes January 03, 2025 6:26am Advance Directives Yes March 22, 2016 4:03pm Advance Directive Response Recorded Date/ Time Do you have a Healthcare Power of Dust Mixer? Yes December 13, 2024 9:26pm Name of Medical Power of Dust Mixer Joseph Burrell December 13, 2024 9:26pm Do you have a Healthcare Power of Dust Mixer? Yes December 17, 2024 4:23pm Do you have a Healthcare Power of Dust Mixer? Yes January 03, 2025 6:26am Do you have a Healthcare Power of Dust Mixer? No January 05, 2025 9:44am Advance Directives Yes March 22, 2016 4:03pm Advance Directive Response Recorded Date/ Time Do you have a Healthcare Power of Dust Mixer? Yes December 13, 2024 9:26pm Name of Medical Power of Dust Mixer Joseph Burrell December 13, 2024 9:26pm Do you have a Healthcare Power of Dust Mixer? Yes December 17, 2024 4:23pm Do you have a Healthcare Power of Dust Mixer? Yes January 03, 2025 6:26am Do you have a Healthcare Power of Dust Mixer? No January 05, 2025 2:48pm Advance Directives Yes March 22, 2016 4:03pm Hospital Course Note HNO ID: [id number] Author: Luis Girard Service: Vascular Surgery Author [...] Admitted for a planned redo of left HANDS PARTER endarterectomy versus bypass, possible fem-fem and or fem-pop bypass, possible stent placement for reoccurrent left HANDS PARTER disease, thrombosis of the left iliac stents and rest pain. Operations during Hospitalization: 10/08/2019-Left common femoral endarterectomy with bovine patch, redo.Thrombectomy of the occluded Left RADHA and EIA.Left common and external iliac stents (Cast x 2), (Gene (more content not included)... Note HNO ID: [id number] Author: Gabino Oden (Pa) Service: Vascular Surgery Author Type: Physician Muck Miner Type: Discharge Summary Filed: 10/25/2019 4:58 PM [...] status post revascularization of left leg. Presumed [place]-Beau left iliac, profunda bypass infection. Reason for Hospitalization: pleasant 69-year-old gentleman, who has recently undergone com (more content not included)... Note HNO ID: [id number] Author: Luis lizama (Richi Girard Service: Vascular Surgery Author Type: Nurse Practitioner Type: Discharge Summary Filed: 12/17/2019 5:52 PM Note Text: Attestation signed by Rob Stevens at 12/18/2019 8:07 AM [facility] STAFF PHYSICIAN NOTE OF PERSONAL INVOLVEMENT [...] 1700 12/17/2019 ADMISSION DATE: 12/17/2019 DISCHARGE DISPOSITION: [facility] Discharge Physical Exam: VITAL SIGNS: BP 154/ (more content not included)... Note HNO ID: [id number] Author: Nelson Schuster (Aa) Service: ? Author Type: Heater Helper Type: Anesthesia Procedure Notes Filed: 10/08/2019 8:38 [...] (more content not included)... Note HNO ID: [id number] Author: Nelson Schuster (Aa) Service: ? Author Type: Heater Helper Type: Anesthesia Procedure Notes Filed: 10/08/2019 8:38 [...] October 08, 2019 TIME: 8:36 AM CSN: [id number] Note HNO ID: [id number] Author: Nelson Schuster (Aa) Service: ? Author Type: Heater Helper Type: Anesthesia Procedure Notes Filed: 10/08/2019 8:39 [...] (more content not included)... Note HNO ID: [id number] Author: ANA PAULA Sanchez (Aa) Service: ? Author Type: Heater Helper Type: Anesthesia Procedure Notes Filed: 10/08/2019 9:16 [...] October 08, 2019 TIME: 9:15 AM CSN: [id number] Note HNO ID: [id number] Author: Gabino lucas (Res) Stephanie Service: Vascular Surgery Author Type: Resident Type: Brief Op Note Filed: 10/08/2019 4:12 PM Note Text: BRIEF OPERATIVE / PROCEDURE NOTE LOG ID: [id number] SURGERY/PROCEDURE DATE: 10/08/2019 INCISION/PROCEDURE START TIME: 8:53 AM INCISION CLOSE/PROCEDURE END TIME: 4:06 PM SURGEON(S)/PROCEDURALIST(S) AND PROOF PRESS OPERATOR(S): Surgeon(s) and Role: * Ryan May MD - Primary * Elly (Binu Brown - Resident - Assisting No Additional Staff SURGERY/PROCEDURE(S): Left common HANDS PARTER endarterectomy with bovine path Left profundoplasty Left [...] (more content not included)... Note HNO ID: [id number] Author: Destiny Sequeira Service: ? Author Type: [...] (more content not included)... Note HNO ID: [id number] Author: Destiny Sequeira Service: ? Author Type: [...] October 10, 2019 TIME: 9:26 AM CSN: [id number] Note HNO ID: [id number] Author: Huong Gonzalez Service: ? Author Type: Nurse Linux Devops Engineer Type: Anesthesia Procedure Notes Filed: 10/10/2019 9:36 AM Note Text: ANESTHESIOLOGY PROCEDURE NOTE Airway General Information Procedure Start Time/Medication Administration: 10/10/2019 9:11 AM Patient location during procedure: OR Staffing Anesthesiologist: Joey Sequeira PHYSICAL DIRECTOR: Gini Gonzalez Performed by: EDWIN Indications and [...] (more content not included)... Note HNO ID: [id number] Author: Gabino lucas ([facility]) Stephanie Service: Vascular Surgery Author Type: Resident Type: Brief Op Note Filed: 10/10/2019 2:08 PM Note Text: BRIEF OPERATIVE / PROCEDURE NOTE LOG ID: [id number] Surgery/Procedure Date: 10/10/2019 Incision/Procedure Start Time: 9:52 AM Incision Close/Procedure End Time: 1:49 PM Surgeon(s)/Proceduralist(s) and Muck Miner(s): Surgeon(s) and Role: * Ryan May MD - Primary * Elly ([facility])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 regulations: The Federal rules restrict any use of the information to criminally investigate or prosecute any alcohol or drug abuse patient.[facility] HospitalIn the event this information is protected by the Federal Confidentiality of Alcohol and Drug Abuse Patient Records regulations: The Federal rules restrict any use of the information to criminally investigate or prosecute any alcohol or drug abuse patient.[facility] HospitalIn the event this information is protected by the Federal Confidentiality of Alcohol and Drug Abuse Patient Records regulations: The Federal rules restrict any use of the information to criminally investigate or prosecute any alcohol or drug abuse patient.[facility] HospitalIn the event this information is protected by the Federal Confidentiality of Alcohol and Drug Abuse Patient Records regulations: The Federal rules restrict any use of the information to criminally investigate or prosecute any alcohol or drug abuse patient.[facility] HospitalIn the event this information is protected by the Federal Confidentiality of Alcohol and Drug Abuse Patient Records regulations: The Federal rules restrict any use of the information to criminally investigate or prosecute any alcohol or drug abuse patient.[facility] HospitalIn the event this information is protected by the Federal Confidentiality of Alcohol and Drug Abuse Patient Records regulations: The Federal rules restrict any use of the information to criminally investigate or prosecute any alcohol or drug abuse patient.[facility] HospitalIn the event this information is protected by the Federal Confidentiality of Alcohol and Drug Abuse Patient Records regulations: The Federal rules restrict any use of the information to criminally investigate or prosecute any alcohol or drug abuse patient.[facility] HospitalIn the event this information is protected by the Federal Confidentiality of Alcohol and Drug Abuse Patient Records regulations: The Federal rules restrict any use of the information to criminally investigate or prosecute any alcohol or drug abuse patient.[facility] HospitalIn the event this information is protected by the Federal Confidentiality of Alcohol and Drug Abuse Patient Records regulations: The Federal rules restrict any use of the information to criminally investigate or prosecute any alcohol or drug abuse patient.[facility] HospitalIn the event this information is protected by the Federal Confidentiality of Alcohol and Drug Abuse Patient Records regulations: The Federal rules restrict any use of the information to criminally investigate or prosecute any alcohol or drug abuse patient.[facility] HospitalIn the event this information is protected by the Federal Confidentiality of Alcohol and Drug Abuse Patient Records regulations: The Federal rules restrict any use of the information to criminally investigate or prosecute any alcohol or drug abuse patient.[facility] HospitalIn the event this information is protected by the Federal Confidentiality of Alcohol and Drug Abuse Patient Records regulations: The Federal rules restrict any use of the information to criminally investigate or prosecute any alcohol or drug abuse patient.[facility] HospitalIn the event this information is protected by the Federal Confidentiality of Alcohol and Drug Abuse Patient Records regulations: The Federal rules restrict any use of the information to criminally investigate or prosecute any alcohol or drug abuse patient.[facility] HospitalIn the event this information is protected by the Federal Confidentiality of Alcohol and Drug Abuse Patient Records regulations: The Federal rules restrict any use of the information to criminally investigate or prosecute any alcohol or drug abuse patient.[facility] HospitalIn the event this information is protected by the Federal Confidentiality of Alcohol and Drug Abuse Patient Records regulations: The Federal rules restrict any use of the information to criminally investigate or prosecute any alcohol or drug abuse patient.[facility] HospitalIn the event this information is protected by the Federal Confidentiality of Alcohol and Drug Abuse Patient Records regulations: The Federal rules restrict any use of the information to criminally investigate or prosecute any alcohol or drug abuse patient.[facility] HospitalIn the event this information is protected by the Federal Confidentiality of Alcohol and Drug Abuse Patient Records regulations: The Federal rules restrict any use of the information to criminally investigate or prosecute any alcohol or drug abuse patient.[facility] HospitalIn the event this information is protected by the Federal Confidentiality of Alcohol and Drug Abuse Patient Records regulations: The Federal rules restrict any use of the information to criminally investigate or prosecute any alcohol or drug abuse patient.[facility] HospitalIn the event this information is protected by the Federal Confidentiality of Alcohol and Drug Abuse Patient Records regulations: The Federal rules restrict any use of the information to criminally investigate or prosecute any alcohol or drug abuse patient.[facility] HospitalIn the event this information is protected by the Federal Confidentiality of Alcohol and Drug Abuse Patient Records regulations: The Federal rules restrict any use of the information to criminally investigate or prosecute any alcohol or drug abuse patient.[facility] HospitalIn the event this information is protected by the Federal Confidentiality of Alcohol and Drug Abuse Patient Records regulations: The Federal rules restrict any use of the information to criminally investigate or prosecute any alcohol or drug abuse patient.[facility] HospitalIn the event this information is protected by the Federal Confidentiality of Alcohol and Drug Abuse Patient Records regulations: The Federal rules restrict any use of the information to criminally investigate or prosecute any alcohol or drug abuse patient.[facility] HospitalIn the event this information is protected by the Federal Confidentiality of Alcohol and Drug Abuse Patient Records regulations: The Federal rules restrict any use of the information to criminally investigate or prosecute any alcohol or drug abuse patient.[facility] HospitalIn the event this information is protected by the Federal Confidentiality of Alcohol and Drug Abuse Patient Records regulations: The Federal rules restrict any use of the information to criminally investigate or prosecute any alcohol or drug abuse patient.[facility] HospitalIn the event this information is protected by the Federal Confidentiality of Alcohol and Drug Abuse Patient Records regulations: The Federal rules restrict any use of the information to criminally investigate or prosecute any alcohol or drug abuse patient.[facility] HospitalIn the event this information is protected by the Federal Confidentiality of Alcohol and Drug Abuse Patient Records regulations: The Federal rules restrict any use of the information to criminally investigate or prosecute any alcohol or drug abuse patient.[facility] HospitalIn the event this information is protected by the Federal Confidentiality of Alcohol and Drug Abuse Patient Records regulations: The Federal rules restrict any use of the information to criminally investigate or prosecute any alcohol or drug abuse patient.[facility] HospitalIn the event this information is protected by the Federal Confidentiality of Alcohol and Drug Abuse Patient Records regulations: The Federal rules restrict any use of the information to criminally investigate or prosecute any alcohol or drug abuse patient.[facility] HospitalIn the event this information is protected by the Federal Confidentiality of Alcohol and Drug Abuse Patient Records regulations: The Federal rules restrict any use of the information to criminally investigate or prosecute any alcohol or drug abuse patient.[facility] HospitalIn the event this information is protected by the Federal Confidentiality of Alcohol and Drug Abuse Patient Records regulations: The Federal rules restrict any use of the information to criminally investigate or prosecute any alcohol or drug abuse patient.[facility] HospitalIn the event this information is protected by the Federal Confidentiality of Alcohol and Drug Abuse Patient Records regulations: The Federal rules restrict any use of the information to criminally investigate or prosecute any alcohol or drug abuse patient.[facility] HospitalIn the event this information is protected by the Federal Confidentiality of Alcohol and Drug Abuse Patient Records regulations: The Federal rules restrict any use of the information to criminally investigate or prosecute any alcohol or drug abuse patient.[facility] HospitalIn the event this information is protected by the Federal Confidentiality of Alcohol and Drug Abuse Patient Records regulations: The Federal rules restrict any use of the information to criminally investigate or prosecute any alcohol or drug abuse patient.[facility] HospitalIn the event this information is protected by the Federal Confidentiality of Alcohol and Drug Abuse Patient Records regulations: The Federal rules restrict any use of the information to criminally investigate or prosecute any alcohol or drug abuse patient.[facility] HospitalIn the event this information is protected by the Federal Confidentiality of Alcohol and Drug Abuse Patient Records regulations: The Federal rules restrict any use of the information to criminally investigate or prosecute any alcohol or drug abuse patient.[facility] HospitalIn the event this information is protected by the Federal Confidentiality of Alcohol and Drug Abuse Patient Records regulations: The Federal rules restrict any use of the information to criminally investigate or prosecute any alcohol or drug abuse patient.[facility] HospitalIn the event this information is protected by the Federal Confidentiality of Alcohol and Drug Abuse Patient Records regulations: The Federal rules restrict any use of the information to criminally investigate or prosecute any alcohol or drug abuse patient.[facility] HospitalIn the event this information is protected by the Federal Confidentiality of Alcohol and Drug Abuse Patient Records regulations: The Federal rules restrict any use of the information to criminally investigate or prosecute any alcohol or drug abuse patient.[facility] HospitalIn the event this information is protected by the Federal Confidentiality of Alcohol and Drug Abuse Patient Records regulations: The Federal rules restrict any use of the information to criminally investigate or prosecute any alcohol or drug abuse patient.[facility] HospitalIn the event this information is protected by the Federal Confidentiality of Alcohol and Drug Abuse Patient Records regulations: The Federal rules restrict any use of the information to criminally investigate or prosecute any alcohol or drug abuse patient.[facility] HospitalIn the event this information is protected by the Federal Confidentiality of Alcohol and Drug Abuse Patient Records regulations: The Federal rules restrict any use of the information to criminally investigate or prosecute any alcohol or drug abuse patient.[facility] HospitalIn the event this information is protected by the Federal Confidentiality of Alcohol and Drug Abuse Patient Records regulations: The Federal rules restrict any use of the information to criminally investigate or prosecute any alcohol or drug abuse patient.[facility] HospitalIn the event this information is protected by the Federal Confidentiality of Alcohol and Drug Abuse Patient Records regulations: The Federal rules restrict any use of the information to criminally investigate or prosecute any alcohol or drug abuse patient.[facility] HospitalIn the event this information is protected by the Federal Confidentiality of Alcohol and Drug Abuse Patient Records regulations: The Federal rules restrict any use of the information to criminally investigate or prosecute any alcohol or drug abuse patient.[facility] HospitalIn the event this information is protected by the Federal Confidentiality of Alcohol and Drug Abuse Patient Records regulations: The Federal rules restrict any use of the information to criminally investigate or prosecute any alcohol or drug abuse patient.[facility] HospitalIn the event this information is protected by the Federal Confidentiality of Alcohol and Drug Abuse Patient Records regulations: The Federal rules restrict any use of the information to criminally investigate or prosecute any alcohol or drug abuse patient.[facility] HospitalIn the event this information is protected by the Federal Confidentiality of Alcohol and Drug Abuse Patient Records regulations: The Federal rules restrict any use of the information to criminally investigate or prosecute any alcohol or drug abuse patient.[facility] HospitalIn the event this information is protected by the Federal Confidentiality of Alcohol and Drug Abuse Patient Records regulations: The Federal rules restrict any use of the information to criminally investigate or prosecute any alcohol or drug abuse patient.[facility] HospitalIn the event this information is protected by the Federal Confidentiality of Alcohol and Drug Abuse Patient Records regulations: The Federal rules restrict any use of the information to criminally investigate or prosecute any alcohol or drug abuse patient.[facility] HospitalIn the event this information is protected by the Federal Confidentiality of Alcohol and Drug Abuse Patient Records regulations: The Federal rules restrict any use of the information to criminally investigate or prosecute any alcohol or drug abuse patient.[facility] HospitalIn the event this information is protected by the Federal Confidentiality of Alcohol and Drug Abuse Patient Records regulations: The Federal rules restrict any use of the information to criminally investigate or prosecute any alcohol or drug abuse patient.[facility] HospitalIn the event this information is protected by the Federal Confidentiality of Alcohol and Drug Abuse Patient Records regulations: The Federal rules restrict any use of the information to criminally investigate or prosecute any alcohol or drug abuse patient.[facility] HospitalIn the event this information is protected by the Federal Confidentiality of Alcohol and Drug Abuse Patient Records regulations: The Federal rules restrict any use of the information to criminally investigate or prosecute any alcohol or drug abuse patient.[facility] HospitalIn the event this information is protected by the Federal Confidentiality of Alcohol and Drug Abuse Patient Records regulations: The Federal rules restrict any use of the information to criminally investigate or prosecute any alcohol or drug abuse patient.[facility] HospitalIn the event this information is protected by the Federal Confidentiality of Alcohol and Drug Abuse Patient Records regulations: The Federal rules restrict any use of the information to criminally investigate or prosecute any alcohol or drug abuse patient.[facility] HospitalIn the event this information is protected by the Federal Confidentiality of Alcohol and Drug Abuse Patient Records regulations: The Federal rules restrict any use of the information to criminally investigate or prosecute any alcohol or drug abuse patient.[facility] HospitalIn the event this information is protected by the Federal Confidentiality of Alcohol and Drug Abuse Patient Records regulations: The Federal rules restrict any use of the information to criminally investigate or prosecute any alcohol or drug abuse patient.[facility] HospitalIn the event this information is protected by the Federal Confidentiality of Alcohol and Drug Abuse Patient Records regulations: The Federal rules restrict any use of the information to criminally investigate or prosecute any alcohol or drug abuse patient.[facility] HospitalIn the event this information is protected by the Federal Confidentiality of Alcohol and Drug Abuse Patient Records regulations: The Federal rules restrict any use of the information to criminally investigate or prosecute any alcohol or drug abuse patient.[facility] HospitalIn the event this information is protected by the Federal Confidentiality of Alcohol and Drug Abuse Patient Records regulations: The Federal rules restrict any use of the information to criminally investigate or prosecute any alcohol or drug abuse patient.[facility] HospitalIn the event this information is protected by the Federal Confidentiality of Alcohol and Drug Abuse Patient Records regulations: The Federal rules restrict any use of the information to criminally investigate or prosecute any alcohol or drug abuse patient.[facility] HospitalIn the event this information is protected by the Federal Confidentiality of Alcohol and Drug Abuse Patient Records regulations: The Federal rules restrict any use of the information to criminally investigate or prosecute any alcohol or drug abuse patient.[facility] HospitalIn the event this information is protected by the Federal Confidentiality of Alcohol and Drug Abuse Patient Records regulations: The Federal rules restrict any use of the information to criminally investigate or prosecute any alcohol or drug abuse patient.[facility] HospitalIn the event this information is protected by the Federal Confidentiality of Alcohol and Drug Abuse Patient Records regulations: The Federal rules restrict any use of the information to criminally investigate or prosecute any alcohol or drug abuse patient.[facility] HospitalIn the event this information is protected by the Federal Confidentiality of Alcohol and Drug Abuse Patient Records regulations: The Federal rules restrict any use of the information to criminally investigate or prosecute any alcohol or drug abuse patient.[facility] HospitalIn the event this information is protected by the Federal Confidentiality of Alcohol and Drug Abuse Patient Records regulations: The Federal rules restrict any use of the information to criminally investigate or prosecute any alcohol or drug abuse patient.[facility] HospitalIn the event this information is protected by the Federal Confidentiality of Alcohol and Drug Abuse Patient Records regulations: The Federal rules restrict any use of the information to criminally investigate or prosecute any alcohol or drug abuse patient.[facility] HospitalIn the event this information is protected by the Federal Confidentiality of Alcohol and Drug Abuse Patient Records regulations: The Federal rules restrict any use of the information to criminally investigate or prosecute any alcohol or drug abuse patient.[facility] HospitalIn the event this information is protected by the Federal Confidentiality of Alcohol and Drug Abuse Patient Records regulations: The Federal rules restrict any use of the information to criminally investigate or prosecute any alcohol or drug abuse patient.[facility] HospitalIn the event this information is protected by the Federal Confidentiality of Alcohol and Drug Abuse Patient Records regulations: The Federal rules restrict any use of the information to criminally investigate or prosecute any alcohol or drug abuse patient.[facility] HospitalIn the event this information is protected by the Federal Confidentiality of Alcohol and Drug Abuse Patient Records regulations: The Federal rules restrict any use of the information to criminally investigate or prosecute any alcohol or drug abuse patient.[facility] HospitalIn the event this information is protected by the Federal Confidentiality of Alcohol and Drug Abuse Patient Records regulations: The Federal rules restrict any use of the information to criminally investigate or prosecute any alcohol or drug abuse patient.[facility] HospitalIn the event this information is protected by the Federal Confidentiality of Alcohol and Drug Abuse Patient Records regulations: The Federal rules restrict any use of the information to criminally investigate or prosecute any alcohol or drug abuse patient.[facility] HospitalIn the event this information is protected by the Federal Confidentiality of Alcohol and Drug Abuse Patient Records regulations: The Federal rules restrict any use of the information to criminally investigate or prosecute any alcohol or drug abuse patient.[facility] HospitalIn the event this information is protected by the Federal Confidentiality of Alcohol and Drug Abuse Patient Records regulations: The Federal rules restrict any use of the information to criminally investigate or prosecute any alcohol or drug abuse patient.[facility] HospitalIn the event this information is protected by the Federal Confidentiality of Alcohol and Drug Abuse Patient Records regulations: The Federal rules restrict any use of the information to criminally investigate or prosecute any alcohol or drug abuse patient.[facility] HospitalIn the event this information is protected by the Federal Confidentiality of Alcohol and Drug Abuse Patient Records regulations: The Federal rules restrict any use of the information to criminally investigate or prosecute any alcohol or drug abuse patient.[facility] HospitalIn the event this information is protected by the Federal Confidentiality of Alcohol and Drug Abuse Patient Records regulations: The Federal rules restrict any use of the information to criminally investigate or prosecute any alcohol or drug abuse patient.[facility] HospitalIn the event this information is protected by the Federal Confidentiality of Alcohol and Drug Abuse Patient Records regulations: The Federal rules restrict any use of the information to criminally investigate or prosecute any alcohol or drug abuse patient.[facility] HospitalIn the event this information is protected by the Federal Confidentiality of Alcohol and Drug Abuse Patient Records regulations: The Federal rules restrict any use of the information to criminally investigate or prosecute any alcohol or drug abuse patient.[facility] HospitalIn the event this information is protected by the Federal Confidentiality of Alcohol and Drug Abuse Patient Records regulations: The Federal rules restrict any use of the information to criminally investigate or prosecute any alcohol or drug abuse patient.[facility] HospitalIn the event this information is protected by the Federal Confidentiality of Alcohol and Drug Abuse Patient Records regulations: The Federal rules restrict any use of the information to criminally investigate or prosecute any alcohol or drug abuse patient.[facility] HospitalIn the event this information is protected by the Federal Confidentiality of Alcohol and Drug Abuse Patient Records regulations: The Federal rules restrict any use of the information to criminally investigate or prosecute any alcohol or drug abuse patient.[facility] HospitalIn the event this information is protected by the Federal Confidentiality of Alcohol and Drug Abuse Patient Records regulations: The Federal rules restrict any use of the information to criminally investigate or prosecute any alcohol or drug abuse patient.[facility] HospitalIn the event this information is protected by the Federal Confidentiality of Alcohol and Drug Abuse Patient Records regulations: The Federal rules restrict any use of the information to criminally investigate or prosecute any alcohol or drug abuse patient.[facility] HospitalIn the event this information is protected by the Federal Confidentiality of Alcohol and Drug Abuse Patient Records regulations: The Federal rules restrict any use of the information to criminally investigate or prosecute any alcohol or drug abuse patient.[facility] HospitalIn the event this information is protected by the Federal Confidentiality of Alcohol and Drug Abuse Patient Records regulations: The Federal rules restrict any use of the information to criminally investigate or prosecute any alcohol or drug abuse patient.[facility] HospitalIn the event this information is protected by the Federal Confidentiality of Alcohol and Drug Abuse Patient Records regulations: The Federal rules restrict any use of the information to criminally investigate or prosecute any alcohol or drug abuse patient.[facility] HospitalIn the event this information is protected by the Federal Confidentiality of Alcohol and Drug Abuse Patient Records regulations: The Federal rules restrict any use of the information to criminally investigate or prosecute any alcohol or drug abuse patient.[facility] HospitalIn the event this information is protected by the Federal Confidentiality of Alcohol and Drug Abuse Patient Records regulations: The Federal rules restrict any use of the information to criminally investigate or prosecute any alcohol or drug abuse patient.[facility] HospitalIn the event this information is protected by the Federal Confidentiality of Alcohol and Drug Abuse Patient Records regulations: The Federal rules restrict any use of the information to criminally investigate or prosecute any alcohol or drug abuse patient.[facility] HospitalIn the event this information is protected by the Federal Confidentiality of Alcohol and Drug Abuse Patient Records regulations: The Federal rules restrict any use of the information to criminally investigate or prosecute any alcohol or drug abuse patient.[facility] HospitalIn the event this information is protected by the Federal Confidentiality of Alcohol and Drug Abuse Patient Records regulations: The Federal rules restrict any use of the information to criminally investigate or prosecute any alcohol or drug abuse patient.[facility] HospitalIn the event this information is protected by the Federal Confidentiality of Alcohol and Drug Abuse Patient Records regulations: The Federal rules restrict any use of the information to criminally investigate or prosecute any alcohol or drug abuse patient.[facility] HospitalIn the event this information is protected by the Federal Confidentiality of Alcohol and Drug Abuse Patient Records regulations: The Federal rules restrict any use of the information to criminally investigate or prosecute any alcohol or drug abuse patient.[facility] HospitalIn the event this information is protected by the Federal Confidentiality of Alcohol and Drug Abuse Patient Records regulations: The Federal rules restrict any use of the information to criminally investigate or prosecute any alcohol or drug abuse patient.[facility] Reason for Visit (unrecogniz ed section and content) Reason Onset Date Comments Transition Of Care 09/14/2021 TCM Initial M [facility] Hospital Discharge 09/13/21 Reason Onset Date Comments Transition Of Care 09/14/2021 TCM Pharmacy- Hospital discharge 09/13/21 Reason Comments Recheck Hosp follow up Specialty Diagnoses / Procedures Referred By Contac t Referred To Contact Internal Medicine / INTERNAL MEDICINE Diagnoses hospital follow up Procedures [facility] [address]re[facility] [address] [place] [address] Anjel Braga APRN.PHOTOGRAPHIC TECHNICIAN [address] [place] [address] Referral ID Status Reason Start Date Expiration Date V isits Requested Visits Authorized [id number] Closed Financial Clearance Required - [employer] Payor Patient Cleared INN/SMCP Payor Auth Obtained 09/15/2021 06/18/2022 1 1 Reason Comments Patient Update Reason Comments Medication Problem Plan of Care Reason Comments Nifedipine issue Reason Onset Date Comments Transition Of Care 09/16/2021 [facility] Discharge 09/13/21 Reason Comments FYI-OT plan of care Reason Comments Anticoagulation Reason Comments Orders Reason Comments medication issue Reason Comments [facility] verbal order needed Reason Comments Medication Problem Reason Comments Consult gallbladder, abdomen pain Specialty Diagnoses / Procedures Referred By Contac t Referred To Contact General Surgery / GENERAL SURGERY Diagnoses Acute cholecystitis Abdominal pain Acute cholecystitis, persistent abdominal pain Procedures OFFICE/OUTPATIENT NEW MODERATE MDM 45-59 MINUTES NEW DDI PATIENT Adelaida Farias MD [address] [place] [address] Kaye Ortega MD [address] [facility] [place] [address] Referral ID Status Reason Start Date Expiration Date V isits Requested Visits Authorized [id number] Closed Financial Clearance Required - [employer] Payor Patient Cleared INN/SMCP Payor Auth Obtained 09/08/2021 06/18/2022 1 1 Reason Comments Patient Question visit from 09/15/21 Reason Comments Patient Question Reason Comments Appointment CONSULT FOR CHOLECYS TECTOMY Reason Comments Appointment Reason Onset Date Comments Transition Of Care 09/21/2021 [facility] Discharge 09/13/21 Reason Comments Work excuse letter Reason Onset Date Comments Transition Of Care 09/29/2021 [facility] Discharge 09/13/21 Reason Onset Date Comments Refill Request 10/04/2021 Reason Comments Hypertension Specialty Diagnoses / Procedures Referred By Contac t Referred To Contact Internal Medicine / INTERNAL MEDICINE Diagnoses 09/13 ER Discharge main campus Broken ribs follow up Procedures [facility] Daija Morton MD [address] [place] [address] Anjel Braga APRN.LAMIN [address] [place] [address] Referral ID Status Reason Start Date Expiration Date Visits Re quested Visits Authorized [id number] Closed 10/07/2021 06/18/2022 1 1 Reason Comments Coumadin update / [facility] [place] Reason Comments Patient Update Orders Reason Comments [...] VOL VNTJ Emilie Jauregui PA-C [address] [facility] [address] [place] [address] [place] [address] Referral ID Status Reason Start Date Expiration Date V isits Requested Visits Authorized [id number] Closed Auto-Generate d Referral 11/05/2021 06/18/2022 1 1 Specialty Diagnoses / Procedures Referred By Contac t Referred To Contact [facility] Diagnoses COPD with chronic bronchitis (HCC) Procedures OXIMETRY WITH AMBULATION NONINVASIVE EAR/PULSE OXIMETRY MULTIPLE DETER Emilie Jauregui PA-C [address] [facility] [address] [place] [address] [address] [address] Referral ID Status Reason Start Date Expiration Date V isits Requested Visits Authorized [id number] Closed Auto-Generate d Referral 11/05/2021 06/18/2022 1 1 Specialty Diagnoses / Procedures Referred By Contac t Referred To Contact Pulmonary and Critical Care Medicine / PULMONARY MEDICINE Diagnoses pre op clearance for gen surgery Procedures RI EST PULM GENERAL Daija Morton MD [address] [place] [address] mEilie Jauregui PA-C [address] [address] Referral ID Status Reason Start Date Expiration Date Visits Re quested Visits Authorized [id number] Closed 10/21/2021 06/18/2022 1 1 Reason Comments Results Reason Comments Cardiac Clearance surgery to have gall bladder removed Reason Comments UTI Specialty Diagnoses / Procedures Referred By Contac t Referred To Contact Internal Medicine / INTERNAL MEDICINE Diagnoses Essential hypertension UTI Procedures OFFICE/OUTPATIENT ESTABLISHED MOD MDM 30-39 MIN 4C EST Anjel Segura, CYBER INCIDENT ANALYST.PHOTOGRAPHIC TECHNICIAN [address] [place] [address] Referral ID Status Reason Start Date Expiration Date Visits Re quested Visits Authorized [id number] Closed 11/17/2021 06/18/2022 1 1 Reason Onset Date Comments Refill Request 11/18/2021 Reason Onset Date Comments Refill Request 11/19/2021 Reason Comments Medication Request Reason Comments Clinical Update Reason Comments Patient Update Medication Request Reason Comments Appointment 01/14 ED F/U-need ED location to retrieve records Reason Comments ER F/U [facility] Specialty Diagnoses / Procedures Referred By Contac t Referred To Contact Internal Medicine / INTERNAL MEDICINE Diagnoses Follow-up examination hospital f/u Procedures OFFICE/OUTPATIENT ESTABLISHED MOD MDM 30-39 MIN 4C EST HOSP/ER MD Roosevelt Marks Terri, CYBER INCIDENT ANALYST.TRANSMISSION WORKER [address] [place] [address] Referral ID Status Reason Start Date Expiration Date Visits Re quested Visits Authorized [id number] Closed 01/14/2022 06/18/2022 1 1 Reason Comments Established Patient follow up anand r Reason Comments Recheck Follow up, Hosp foll ow up Specialty Diagnoses / Procedures Referred By Contac t Referred To Contact Internal Medicine / INTERNAL MEDICINE Diagnoses [facility] ER f/u. 01-25-22. Black stool. Procedures 4C EST HOSP/ER MD Omi Marks Joy, APRN.PHOTOGRAPHIC TECHNICIAN [address] [place] [address] Referral ID Status Reason Start Date Expiration Date Visits Re quested Visits Authorized [id number] Closed 01/28/2022 04/28/2022 1 1 Reason Comments Follow Up Specialty Diagnoses / Procedures Referred By Contac t Referred To Contact Vascular Surgery / VASCULAR SURGERY Diagnoses PVD 1 year f/u with PVR and arterial Duplex Procedures [place] [address] [place] [address] [place] [address] [place] [address] Referral ID Status Reason Start Date Expiration Date Visits Re quested Visits Authorized [id number] Closed 01/31/2022 06/18/2022 1 1 Reason Comments Results, Lab Reason Onset Date Comments Refill Request 02/22/2022 Reason Comments Erroneous encounter-disregard Reason Comments Fall Reason Comments SWCC orders needed today Reason Comments admit to [facility] Reason Comments Social Work Services Reason Comments Medication Question Reason Comments Syncope Reason Onset Date Comments Refill Request 08/25/2022 Patient Update 08/25/2022 Reason Comments skilled nursing follow-up Reason Onset Date Comments Refill Request 08/29/2022 Reason Comments Refill Request [facility] Request Reason Comments patient problem Reason [...] Reason Comments Home Health Orders Reason Comments [facility] [employer] update Reason Comments Home Care Management Patient Update Reason Comments skilled nursing discharge Gem guzman Reason Onset Date Comments Refill Request 12/13/2024 Reason Comments Jarett requesting records Reason Onset Date Comments Refill Request 12/16/2024 Reason Onset Date Comments Refill Request 01/17/2025 Care Teams (unrecognized sec tion and content) Home Theater Experience Expert Relationship Specialty Start Date End Date Daija Morton MD [address] [place] [address] PCP - General Internal Medicine 03/21/17 Beatriz Correa CNP Referring 09/28/20 Daija Morton MD [address] [place] [address] Home Care Physician Internal Medicine 09/28/20 13, Pharmacist [address] [place] [address] Pharmacist Pharmacy 06/17/21 Lizette Ulloa RN [address] [place] [address] Primary Care Bundle Helper Internal Medicine 09/14/21 10/14/21 Tamika Almaguer [employer] Farm Manager 09/26/17 Home Theater Experience Expert Relationship Specialty Start Date End Date Daija Morton MD [address] [place] [address] PCP - General Internal Medicine 03/21/17 Beatriz Correa CNP Referring 09/28/20 Daija Morton MD [address] [place] [address] Home Care Physician Internal Medicine 09/28/20 13, Pharmacist [address] [place] [address] Pharmacist Pharmacy 06/17/21 Lizette Ulloa, RN [address] [place] [address] Primary Care Bundle Helper Internal Medicine 09/14/21 10/14/21 Tamika Almaguer [employer] Farm Manager 09/26/17 Home Theater Experience Expert Relationship Specialty Start Date End Date Daija Morton MD [address] [facility] [place] [address] PCP - General Internal Medicine 03/21/17 Beatriz Correa, PHOTOGRAPHIC TECHNICIAN Referring 09/28/20 Daija Morton MD [address] [facility] [place] [address] Home Care Physician Internal Medicine 09/28/20 13, Pharmacist [address] [place] [address] Pharmacist Pharmacy 06/17/21 Lizette Ulloa, RN [address] [place] [address] Primary Care Bundle Helper Internal Medicine 09/14/21 10/14/21 Tamika Almaguer [employer] Farm Manager 09/26/17 Home Theater Experience Expert Relationship Specialty Start Date End Date Daija Morton MD [address] [place] [address] PCP - General Internal Medicine 03/21/17 Beatriz Correa, PHOTOGRAPHIC TECHNICIAN Referring 09/28/20 Daija Morton MD [address] [place] [address] Home Care Physician Internal Medicine 09/28/20 13, Pharmacist [address] [place] [address] Pharmacist Pharmacy 06/17/21 Lizette Ulloa, RN [address] [place] [address] Primary Care Bundle Helper Internal Medicine 09/14/21 10/14/21 Tamika Almaguer [employer] Farm Manager 09/26/17 Home Theater Experience Expert Relationship Specialty Start Date End Date Daija Morton MD [address] [place] [address] PCP - General Internal Medicine 03/21/17 Beatriz Correa CNP Referring 09/28/20 Daija Morton MD [address] [place] [address] Home Care Physician Internal Medicine 09/28/20 13, Pharmacist [address] [place] [address] Pharmacist Pharmacy 06/17/21 Lizette Ulloa, SE[place]OUR [address] [place] [address] Primary Care Bundle Helper Internal Medicine 09/14/21 10/14/21 Tamika HARRELL [employer] Farm Manager 09/26/17 Home Theater Experience Expert Relationship Specialty Start Date End Date Daija Morton MD [address] [place] [address] PCP - General Internal Medicine 03/21/17 Beatriz Correa CNP Referring 09/28/20 Daija Morton MD [address] [place] [address] Home Care Physician Internal Medicine 09/28/20 13, Pharmacist [address] [place] [address] Pharmacist Pharmacy 06/17/21 Lizette Ulloa, SE[place] [address] [place] [address] Primary Care Bundle Helper Internal Medicine 09/14/21 10/14/21 Tamika HARRELL [employer] Farm Manager 09/26/17 Home Theater Experience Expert Relationship Specialty Start Date End Date Daija Morton MD [address] [place] [address] PCP - General Internal Medicine 03/21/17 Beatriz Correa CNP Referring 09/28/20 Daija Morton MD [address] [place] [address] Home Care Physician Internal Medicine 09/28/20 13, Pharmacist [address] [place] [address] Pharmacist Pharmacy 06/17/21 Lizette Ulloa, RN [address] [place] [address] Primary Care Bundle Helper Internal Medicine 09/14/21 10/14/21 Tamika Almaguer [employer] Farm Manager 09/26/17 Home Theater Experience Expert Relationship Specialty Start Date End Date Daija Morton MD [address] [place] [address] PCP - General Internal Medicine 03/21/17 Beatriz Correa, PHOTOGRAPHIC TECHNICIAN Referring 09/28/20 Daija Morton MD [address] [place] [address] Home Care Physician Internal Medicine 09/28/20 13, Pharmacist [address] [place] [address] Pharmacist Pharmacy 06/17/21 Lizette Ulloa, SEYMOUR [address] [place] [address] Primary Care Bundle Helper Internal Medicine 09/14/21 10/14/21 Kaye Ortega MD [address] [place] [address] General Surgery 09/21/21 Tamika Almaguer PASSANYI [employer] Farm Manager 09/26/17 Home Theater Experience Expert Relationship Specialty Start Date End Date Daija Morton MD [address] [place] [address] PCP - General Internal Medicine 03/21/17 Beatriz Correa, PHOTOGRAPHIC TECHNICIAN Referring 09/28/20 Daija Morton MD [address] [place] [address] Home Care Physician Internal Medicine 09/28/20 13, Pharmacist [address] [place] [address] Pharmacist Pharmacy 06/17/21 Lizette Ulloa, SEYMOUR [address] [facility] [place] [address] Primary Care Bundle Helper Internal Medicine 09/14/21 10/14/21 Kaye Ortega MD [address] [place] [address] General Surgery 09/21/21 Tamika HARRELL [employer] Farm Manager 09/26/17 Home Theater Experience Expert Relationship Specialty Start Date End Date Daija Morton MD [address] [place] [address] PCP - General Internal Medicine 03/21/17 Beatriz Correa CNP Referring 09/28/20 Daija Morton MD [address] [place] [address] Home Care Physician Internal Medicine 09/28/20 13, Pharmacist [address] [place] [address] Pharmacist Pharmacy 06/17/21 Lizette Ulloa, SE[place]OUR [address] [place] [address] Primary Care Bundle Helper Internal Medicine 09/14/21 10/14/21 Kaye Ortega MD [address] [place] [address] General Surgery 09/21/21 Tamika HARRELL [employer] Farm Manager 09/26/17 Home Theater Experience Expert Relationship Specialty Start Date End Date Daija Morton MD [address] [place] [address] PCP - General Internal Medicine 03/21/17 Beatriz Correa, LAMIN Referring 09/28/20 Daija Morton MD [address] [place] [address] Home Care Physician Internal Medicine 09/28/20 13, Pharmacist [address] [place] [address] Pharmacist Pharmacy 06/17/21 Lizette Ulloa RN [address] [place] [address] Primary Care Bundle Helper Internal Medicine 09/14/21 10/14/21 Kaye Ortega MD [address] [facility] [place] [address] General Surgery 09/21/21 [facility]ika [facility] [employer] Farm Manager 09/26/17 Home Theater Experience Expert Relationship Specialty Start Date End Date Daija Morton MD [address] [place] [address] PCP - General Internal Medicine 03/21/17 Beatriz Correa, PHOTOGRAPHIC TECHNICIAN Referring 09/28/20 Daija Morton MD [address] [place] [address] Home Care Physician Internal Medicine 09/28/20 13, Pharmacist [address] [place] [address] Pharmacist Pharmacy 06/17/21 Lizette Ulloa RN [address] [place] [address] Primary Care Bundle Helper Internal Medicine 09/14/21 10/14/21 Kaye Ortega MD [address] [facility] [place] [address] General Surgery 09/21/21 Tamika HARRELL [employer] Farm Manager 09/26/17 Home Theater Experience Expert Relationship Specialty Start Date End Date Daija Morton MD [address] [place] [address] PCP - General Internal Medicine 03/21/17 Beatriz Correa, LAMIN Referring 09/28/20 Daija Morton MD [address] [place] [address] Home Care Physician Internal Medicine 09/28/20 13, Pharmacist [address] [place] [address] Pharmacist Pharmacy 06/17/21 Lizette Ulloa RN [address] [facility] [place] [address] Primary Care Bundle Helper Internal Medicine 09/14/21 10/14/21 Kaye Ortega MD [address] [facility] [place] [address] General Surgery 09/21/21 Tamika [facility] [place] [employer] Farm Manager 09/26/17 Home Theater Experience Expert Relationship Specialty Start Date End Date Daija Morton MD [address] [place] [address] PCP - General Internal Medicine 03/21/17 Beatriz Correa CNP Referring 09/28/20 Daija Morton MD [address] [place] [address] Home Care Physician Internal Medicine 09/28/20 Fco Franklin, SE[place] [address] [place] [address] Carton Inspector 10/08/20 12/21/20 13, Pharmacist [address] [place] [address] Pharmacist Pharmacy 06/17/21 Lizette Ulloa RN [address] [facility] [place] [address] Primary Care Bundle Helper Internal Medicine 09/14/21 10/14/21 Kaye Ortega MD [address] [place] [address] General Surgery 09/21/21 Tamika Minimary Almaguer [employer] Farm Manager 09/26/17 Home Theater Experience Expert Relationship Specialty Start Date End Date Daija Morton MD [address] [facility] [place] [address] PCP - General Internal Medicine 03/21/17 Beatriz Correa CNP Referring 09/28/20 Daija Morton MD [address] [place] [address] Home Care Physician Internal Medicine 09/28/20 13, Pharmacist [address] [place] [address] Pharmacist Pharmacy 06/17/21 Lizette Ulloa RN [address] [place] [address] Primary Care Bundle Helper Internal Medicine 09/14/21 10/14/21 Kaye Ortega MD [address] [place] [address] General Surgery 09/21/21 Tamika Almaguer [employer] Farm Manager 09/26/17 Home Theater Experience Expert Relationship Specialty Start Date End Date Daija Morton MD [address] [place] [address] PCP - General Internal Medicine 03/21/17 Beatriz Correa CNP Referring 09/28/20 10/12/21 Daija Morton MD [address] [place] [address] Home Care Physician Internal Medicine 09/28/20 10/12/21 13, Pharmacist [address] [place] [address] Pharmacist Pharmacy 06/17/21 Lizette Ulloa, SE[place] [address] [place] [address] Primary Care Bundle Helper Internal Medicine 09/14/21 10/14/21 Kaye Ortega MD [address] [place] [address] General Surgery 09/21/21 Ye Coello MD [address] [place], [place] [id number] General Surgery 10/13/21 Emilie Jauregui PA-C [address] [place] [address] Specialty Line Construction Supervisor Pulmonary and Critical Care Medicine 10/13/21 Ryan May MD [address] [place], [place] [id number] Specialty Line Construction Supervisor Vascular Surgery 10/13/21 Geronimo Medina, DO [address] [address] Nurses Superintendent Cardiology 10/13/21 Tamika Almaguer [facility] [employer] Farm Manager 09/26/17 Home Theater Experience Expert Relationship Specialty Start Date End Date Daija Morton MD [address] [place], [place] [id number] PCP - General Internal Medicine 03/21/17 13, Pharmacist [address] [place] [address] Pharmacist Pharmacy 06/17/21 Lizette Ulloa, SE[place] [address] [place] [address] Primary Care Bundle Helper Internal Medicine 09/14/21 10/14/21 Kaye Ortega MD [address] [place] [address] General Surgery 09/21/21 Ye Coello MD [address] [place], [place] [id number] General Surgery 10/13/21 Emilie Jauregui PA-C [address] [place], [place] [address] Specialty Line Construction Supervisor Pulmonary and Critical Care Medicine 10/13/21 Ryan May MD [address] [place] [address] Specialty Line Construction Supervisor Vascular Surgery 10/13/21 Geronimo Medina DO [address] [address] Nurses Superintendent Cardiology 10/13/21 Tamika Almaguer [facility] [employer] Farm Manager 09/26/17 Home Theater Experience Expert Relationship Specialty Start Date End Date Daija Morton MD [address] [place], [place] [address] PCP - General Internal Medicine 03/21/17 Beatriz Correa, PHOTOGRAPHIC TECHNICIAN Referring 09/28/20 10/12/21 Daija Morton MD [address] [place], [place] [address] Home Care Physician Internal Medicine 09/28/20 10/12/21 13, Pharmacist [address] [place] [address] Pharmacist Pharmacy 06/17/21 Lizette Ulloa, SE[place] [address] [place] [address] Primary Care Bundle Helper Internal Medicine 09/14/21 10/14/21 Kaye Ortega MD [address] [place] [address] General Surgery 09/21/21 Ye Coello MD [address] [place], [place] [id number] General Surgery 10/13/21 Emilie Jauregui PA-C [address] [place] [address] Specialty Line Construction Supervisor Pulmonary and Critical Care Medicine 10/13/21 Ryan May MD [address] [place] [address] Specialty Line Construction Supervisor Vascular Surgery 10/13/21 Geronimo Medina, [address] [address] Nurses Superintendent Cardiology 10/13/21 Tamika Canales [facility] [employer] Farm Manager 09/26/17 Home Theater Experience Expert Relationship Specialty Start Date End Date Daija Morton MD [address] [place] [address] PCP - General Internal Medicine 03/21/17 13, Pharmacist [address] [place] [address] Pharmacist Pharmacy 06/17/21 Lizette Ulloa, RN [address] [place] [address] Primary Care Bundle Helper Internal Medicine 09/14/21 10/14/21 Kaye Ortega MD [address] [place] [address] General Surgery 09/21/21 Ye Coello MD [address] [place] [address] General Surgery 10/13/21 Emilie Jauregui PA-C [address] [place] [address] Specialty Line Construction Supervisor Pulmonary and Critical Care Medicine 10/13/21 Ryan May MD [address] [place], [place] [id number] Specialty Line Construction Supervisor Vascular Surgery 10/13/21 Geronimo Medina DO [address] [address] Nurses Superintendent Cardiology 10/13/21 Tamika HARRELL [employer] Farm Manager 09/26/17 Home Theater Experience Expert Relationship Specialty Start Date End Date Daija Morton MD [address] [place] [address] PCP - General Internal Medicine 03/21/17 13, Pharmacist [address] [place] [address] Pharmacist Pharmacy 06/17/21 Kaye Ortega MD [address] [place] [address] General Surgery 09/21/21 Ye Coello MD [address] [place], [place] [id number] General Surgery 10/13/21 Emilie Jauregui PA-C [address] [place], [place] [address] Specialty Line Construction Supervisor Pulmonary and Critical Care Medicine 10/13/21 Ryan May MD [address] [place] [address] Specialty Line Construction Supervisor Vascular Surgery 10/13/21 Geronimo Medina DO [address] [address] Nurses Superintendent Cardiology 10/13/21 Tamiak HARRELL [employer] Farm Manager 09/26/17 Home Theater Experience Expert Relationship Specialty Start Date End Date Daija Morton MD [address] [place] [address] PCP - General Internal Medicine 03/21/17 13, Pharmacist [address] [place] [address] Pharmacist Pharmacy 06/17/21 Kaye Ortega MD [address] [place] [address] General Surgery 09/21/21 Ye Coello MD [address] [place], [place] [id number] General Surgery 10/13/21 Emilie Jauregui PA-C [address] [place] [address] Specialty Line Construction Supervisor Pulmonary and Critical Care Medicine 10/13/21 Ryan May MD [address] [place] [address] Specialty Line Construction Supervisor Vascular Surgery 10/13/21 Geronimo Medina, [address] [address] Nurses Superintendent Cardiology 10/13/21 Tamika Almaguer [facility] [employer] Farm Manager 09/26/17 Home Theater Experience Expert Relationship Specialty Start Date End Date Daija Morton MD [address] [place] [address] PCP - General Internal Medicine 03/21/17 13, Pharmacist [address] [place] [address] Pharmacist Pharmacy 06/17/21 Kaye Ortega MD [address] [place] [address] General Surgery 09/21/21 Ye Coello MD [address] [place], [place] [id number] General Surgery 10/13/21 Emilie Jauregui PA-C [address] [place] [address] Specialty Line Construction Supervisor Pulmonary and Critical Care Medicine 10/13/21 Ryan May MD [address] [place] [address] Specialty Line Construction Supervisor Vascular Surgery 10/13/21 Geronimo Medina, DO [address] [address] Nurses Superintendent Cardiology 10/13/21 Tamika Almaguer PASS[employer] Farm Manager 09/26/17 Home Theater Experience Expert Relationship Specialty Start Date End Date Daija Morton MD [address] [place] [address] PCP - General Internal Medicine 03/21/17 13, Pharmacist [address] [place] [address] Pharmacist Pharmacy 06/17/21 Kaye Ortega MD [address] [place] [address] General Surgery 09/21/21 Ye Coello MD [address] [place], [place] [id number] General Surgery 10/13/21 Emilie Jauregui PA-C [address] [place], [place] [address] Specialty Line Construction Supervisor Pulmonary and Critical Care Medicine 10/13/21 Ryan May MD [address] [place], [place] [address] Specialty Line Construction Supervisor Vascular Surgery 10/13/21 Geronimo Medina, DO [address] [address] Nurses Superintendent Cardiology 10/13/21 Tamika HARRELL [employer] Farm Manager 09/26/17 Home Theater Experience Expert Relationship Specialty Start Date End Date Daija Morton MD [address] [place] [address] PCP - General Internal Medicine 03/21/17 13, Pharmacist [address] [place] [address] Pharmacist Pharmacy 06/17/21 Kaye Ortega MD [address] [place] [phone] General Surgery 09/21/21 Ye Coello MD [address] [place], [place] [id number] General Surgery 10/13/21 Emilie Jauregui PA-C [address] [place] [address] Specialty Line Construction Supervisor Pulmonary and Critical Care Medicine 10/13/21 Ryan May MD [address] [place] [address] Specialty Line Construction Supervisor Vascular Surgery 10/13/21 Geronimo Medina, [address] [address] Nurses Superintendent Cardiology 10/13/21 Tamika [facility]uer [facility] [employer] Farm Manager 09/26/17 Home Theater Experience Expert Relationship Specialty Start Date End Date Daija Morton MD [address] [place] [address] PCP - General Internal Medicine 03/21/17 13, Pharmacist [address] [place] [address] Pharmacist Pharmacy 06/17/21 Kaye Ortega MD [address] [place] [address] General Surgery 09/21/21 Ye Coello MD [address] [place] [address] General Surgery 10/13/21 Emilie Jauregui PA-C [address] [place] [address] Specialty Line Construction Supervisor Pulmonary and Critical Care Medicine 10/13/21 Ryan May MD [address] [place], [place] [phone] Specialty Line Construction Supervisor Vascular Surgery 10/13/21 Geronimo Medina DO [address] [address] Nurses Superintendent Cardiology 10/13/21 Tamikadestiny Almaguer [facility] [employer] Farm Manager 09/26/17 Home Theater Experience Expert Relationship Specialty Start Date End Date Daija Morton MD [address] [place], [place] [address] PCP - General Internal Medicine 03/21/17 13, Pharmacist [address] [place] [address] Pharmacist Pharmacy 06/17/21 Kaye Ortega MD [address] [place] [address] General Surgery 09/21/21 Ye Coello MD [address] [place] [address] General Surgery 10/13/21 Emilie Jauregui PA-C [address] [place] [address] Specialty Line Construction Supervisor Pulmonary and Critical Care Medicine 10/13/21 Ryan May MD [address] [place], [place] 533[address] Specialty Line Construction Supervisor Vascular Surgery 10/13/21 Geronimo Medina DO [address] [address] Nurses Superintendent Cardiology 10/13/21 Tamika HARRELL [employer] Farm Manager 09/26/17 Home Theater Experience Expert Relationship Specialty Start Date End Date Daija Morton MD [address] [place] [address] PCP - General Internal Medicine 03/21/17 13, Pharmacist [address] [place] [address] Pharmacist Pharmacy 06/17/21 Kaye Ortega MD [address] [place] [address] General Surgery 09/21/21 Ye Coello MD [address] [place], [place] [id number] General Surgery 10/13/21 Emilie Jauregui PA-C [address] [place], [place] [address] Specialty Line Construction Supervisor Pulmonary and Critical Care Medicine 10/13/21 Ryan May MD [address] [place] [address] Specialty Line Construction Supervisor Vascular Surgery 10/13/21 Geronimo Medina DO [address] [address] Nurses Superintendent Cardiology 10/13/21 Tamika HARRELL [employer] Farm Manager 09/26/17 Home Theater Experience Expert Relationship Specialty Start Date End Date Daija Morton MD [address] [place] [address] PCP - General Internal Medicine 03/21/17 13, Pharmacist [address] [place] [address] Pharmacist Pharmacy 06/17/21 Kaye Ortega MD [address] [place] [address] General Surgery 09/21/21 Ye Coello MD [address] [place], [place] [id number] General Surgery 10/13/21 Emilie Jauregui PA-C [address] [place], [place] [address] Specialty Line Construction Supervisor Pulmonary and Critical Care Medicine 10/13/21 Ryan May MD [address] [place], [place] [id number] Specialty Line Construction Supervisor Vascular Surgery 10/13/21 Geronimo Medina, [address] [address] Nurses Superintendent Cardiology 10/13/21 Tamika Almaguer [facility] [employer] Manager 09/26/17 Home Theater Experience Expert Relationship Specialty Start Date End Date Daija Morton MD [address] [place] [address] PCP - General Internal Medicine 03/21/17 13, Pharmacist [phone] [place] [address] Pharmacist Pharmacy 06/17/21 Kaye Ortega MD [address] [place] [address] General Surgery 09/21/21 Ye Coello MD [address] [place], [place] [id number] General Surgery 10/13/21 Emilie Jauregui PA-C [address] [place] [address] Specialty Line Construction Supervisor Pulmonary and Critical Care Medicine 10/13/21 Ryan May MD [address] [facility] [place] [address] Specialty Line Construction Supervisor Vascular Surgery 10/13/21 Geronimo Medina DO [address] [address] Nurses Superintendent Cardiology 10/13/21 Tamika HARRELL [employer] 09/26/17 Home Theater Experience Expert Relationship Specialty Start Date End Date Daija Morton MD [address] [place] [address] PCP - General Internal Medicine 03/21/17 13, Pharmacist [address] [place] [address] Pharmacist Pharmacy 06/17/21 Kaye Ortega MD [address] [place] [address] General Surgery 09/21/21 Ye Coello MD [address] [place], [place] [id number] General Surgery 10/13/21 Emilie Jaureugi PA-C [address] [place] [address] Specialty Line Construction Supervisor Pulmonary and Critical Care Medicine 10/13/21 Ryan May MD [address] [facility] [place] [address] Specialty Line Construction Supervisor Vascular Surgery 10/13/21 Geronimo Medina DO [address] [address] Nurses Superintendent Cardiology 10/13/21 Tamika HARRELL [employer] 09/26/17 Home Theater Experience Expert Relationship Specialty Start Date End Date Daija Morton MD [address] [place] [address] PCP - General Internal Medicine 03/21/17 13, Pharmacist [address] [place] [address] Pharmacist Pharmacy 06/17/21 Kaye Ortega MD [address] [place] [phone] General Surgery 09/21/21 Ye Coello MD [address] [place], [place] [id number] General Surgery 10/13/21 Emilie Jauregui PANeshaC [address] [place] [address] Specialty Line Construction Supervisor Pulmonary and Critical Care Medicine 10/13/21 Ryan May MD [address] [place] [address] Specialty Line Construction Supervisor Vascular Surgery 10/13/21 Geronimo Medina, DO [address] [address] Nurses Superintendent Cardiology 10/13/21 Tamika [facility]maguer [facility] [employer] Farm Manager 09/26/17 Home Theater Experience Expert Relationship Specialty Start Date End Date Daija Morton MD [address] [place] [address] PCP - General Internal Medicine 03/21/17 13, Pharmacist [address] [place] [address] Pharmacist Pharmacy 06/17/21 Kaye Ortega MD [address] [place] [address] General Surgery 09/21/21 Ye Coello MD [address] [place] [address] General Surgery 10/13/21 Emilie Jauregui PA-C [address] [place] [address] Specialty Line Construction Supervisor Pulmonary and Critical Care Medicine 10/13/21 Ryan May MD [address] [place], [place] [id number] Specialty Line Construction Supervisor Vascular Surgery 10/13/21 Geronimo Medina, [address] [address] Nurses Superintendent Cardiology 10/13/21 Tamika Almaguer [employer] 09/26/17 Home Theater Experience Expert Relationship Specialty Start Date End Date Daija Morton MD [address] [place], [place] 959271 PCP - General Internal Medicine 03/21/17 13, Pharmacist [address] [place] [address] Pharmacist Pharmacy 06/17/21 Kaye Ortega MD [address] [place] [address] General Surgery 09/21/21 Ye Coello MD [address] [place], [place] [id number] General Surgery 10/13/21 Emilie Jauregui PA-C [address], [place] 363891 Specialty Line Construction Supervisor Pulmonary and Critical Care Medicine 10/13/21 Ryan May MD [address] [place], [place] 3392195 Specialty Line Construction Supervisor Vascular Surgery 10/13/21 Geronimo Medina DO [address] [address] Nurses Superintendent Cardiology 10/13/21 Tamika Almaguer [employer] Manager 09/26/17 Home Theater Experience Expert Relationship Specialty Start Date End Date Daija Morton MD [address] [place] [address] PCP - General Internal Medicine 03/21/17 13, Pharmacist [phone] [place] [address] Pharmacist Pharmacy 06/17/21 Kaye Ortega MD [address] [place] [phone] General Surgery 09/21/21 Ye Coello MD [address] [place], [place] [id number] General Surgery 10/13/21 Emilie Jauregui PA-C [address] [place] [address] Specialty Line Construction Supervisor Pulmonary and Critical Care Medicine 10/13/21 Ryan May MD [address] [place], [place] [id number] Specialty Line Construction Supervisor Vascular Surgery 10/13/21 Geronimo Medina, DO [address] [address] Nurses Superintendent Cardiology 10/13/21 Tamika Almaguer [employer] 09/26/17 Home Theater Experience Expert Relationship Specialty Start Date End Date Daija Morton MD [address] [place] [address] PCP - General Internal Medicine 03/21/17 13, Pharmacist [address] [place] [address] Pharmacist Pharmacy 06/17/21 Kaye Ortega MD [address] [place] [address] General Surgery 09/21/21 Ye Coello MD [address] [place], [place] [id number] General Surgery 10/13/21 Emilie Jauregui PA-C [address] [place] [address] Specialty Line Construction Supervisor Pulmonary and Critical Care Medicine 10/13/21 Ryan May MD [address] [place] [address] Specialty Line Construction Supervisor Vascular Surgery 10/13/21 Geronimo Medina DO [address] [address] Nurses Superintendent Cardiology 10/13/21 Tamika Almaguer [facility] [employer] Manager 09/26/17 Home Theater Experience Expert Relationship Specialty Start Date End Date Daija Morton MD [address] [place], [place] 266083 [phone] PCP - General Internal Medicine 03/21/17 13, Pharmacist [address]14[address] [place], [place] [phone] Pharmacist Pharmacy 06/17/21 Kaye Ortega MD [address] [place] [address] General Surgery 09/21/21 Ye Coello MD [address] [place], [place] [id number] General Surgery 10/13/21 Emilie Jauregui PA-C [address] [place] [address] Specialty Line Construction Supervisor Pulmonary and Critical Care Medicine 10/13/21 Ryan May MD [address] [facility] [place] [address] Specialty Line Construction Supervisor Vascular Surgery 10/13/21 Geronimo Medina DO [address] [address] Nurses Superintendent Cardiology 10/13/21 Tamika HARRELL [employer] 09/26/17 Home Theater Experience Expert Relationship Specialty Start Date End Date Daija Morton MD [address] [place] [address] PCP - General Internal Medicine 03/21/17 13, Pharmacist [address] [place] [address] Pharmacist Pharmacy 06/17/21 Kaye Ortega MD [address] [place] [address] General Surgery 09/21/21 Ye Coello MD [address] [place], [place] [id number] General Surgery 10/13/21 Emilie Jauregui PA-C [address] [place] [address] Specialty Line Construction Supervisor Pulmonary and Critical Care Medicine 10/13/21 Ryan May MD [address] [place] [address] [employer]ty Line Construction Supervisor Vascular Surgery 10/13/21 Geronimo Medina DO [address] [address] Nurses Superintendent Cardiology 10/13/21 Tamika HARRELL [employer] 09/26/17 Home Theater Experience Expert Relationship Specialty Start Date End Date Daija Morton MD [address] [place] [address] PCP - General Internal Medicine 03/21/17 13, Pharmacist [address] [place] [address] Pharmacist Pharmacy 06/17/21 Kaye Ortega MD [address] [place] [phone] General Surgery 09/21/21 Ye Coello MD [address] [place] [id number] General Surgery 10/13/21 Emilie Jauregui PA-C [address] [place] [address] Specialty Line Construction Supervisor Pulmonary and Critical Care Medicine 10/13/21 Ryan May MD [address] [place] [address] Specialty Line Construction Supervisor Vascular Surgery 10/13/21 Geronimo Medina, DO [address] [id number] Nurses Superintendent Cardiology 10/13/21 Tamika Almaguer [facility] [employer] Farm Manager 09/26/17 Home Theater Experience Expert Relationship Specialty Start Date End Date Daija Morton MD [address] [place] [address] PCP - General Internal Medicine 03/21/17 13, Pharmacist [address] [place] [address] Pharmacist Pharmacy 06/17/21 Kaye Ortega MD [address] [place] [address] General Surgery 09/21/21 Ye Coello MD [address] [place], [place] [id number] General Surgery 10/13/21 Emilie Jauregui PA-C [address] [place] [address] Specialty Line Construction Supervisor Pulmonary and Critical Care Medicine 10/13/21 Ryan May MD [address] [place], [place] 6004395 Specialty Line Construction Supervisor Vascular Surgery 10/13/21 Geronimo Medina, DO [address] [address] Nurses Superintendent Cardiology 10/13/21 Tamika Almaguer [facility] [employer] Farm Manager 09/26/17 Home Theater Experience Expert Relationship Specialty Start Date End Date Daija Morton MD [address] [place], [place] 525169 [phone] PCP - General Internal Medicine 03/21/17 13, Pharmacist [address] [place] [address] Pharmacist Pharmacy 06/17/21 Kaye Ortega MD [address] [place] [address] General Surgery 09/21/21 Ye Coello MD [address] [place] [address] General Surgery 10/13/21 Emilie Jauregui PA-C [address] [place] [address] Specialty Line Construction Supervisor Pulmonary and Critical Care Medicine 10/13/21 Ryan May MD [address] [place], [place] [id number] Specialty Line Construction Supervisor Vascular Surgery 10/13/21 Geronimo Medina, DO [address] [address] Nurses Superintendent Cardiology 10/13/21 Tamika Almaguer [employer] 09/26/17 Home Theater Experience Expert Relationship Specialty Start Date End Date Daija Morton MD [address] [place] [address] PCP - General Internal Medicine 03/21/17 13, Pharmacist [address] [place] [address] Pharmacist Pharmacy 06/17/21 Kaye Ortega MD [address] [place] [phone] General Surgery 09/21/21 Ye Coello MD [address] [place], [place] [id number] General Surgery 10/13/21 Emilie Jauregui PA-C [address] [place] [address] Specialty Line Construction Supervisor Pulmonary and Critical Care Medicine 10/13/21 Ryan May MD [address] [place], [place] 0406795 Specialty Line Construction Supervisor Vascular Surgery 10/13/21 Geronimo Medina, [address] [address] Nurses Superintendent Cardiology 10/13/21 Tamika Almaguer [employer] 09/26/17 Home Theater Experience Expert Relationship Specialty Start Date End Date Daija Morton MD [address] [place] [address] PCP - General Internal Medicine 03/21/17 13, Pharmacist [address] [place] [address] Pharmacist Pharmacy 06/17/21 Kaye Ortega MD [address] [place] [address] General Surgery 09/21/21 Ye Coello MD [address] [place], [place] 766445 General Surgery 10/13/21 Emilie Jauregui PA-C [address] [place] [address] Specialty Line Construction Supervisor Pulmonary and Critical Care Medicine 10/13/21 Ryan May MD [address] [place] [address] Specialty Line Construction Supervisor Vascular Surgery 10/13/21 Geronimo Medina DO [address] [address] Nurses Superintendent Cardiology 10/13/21 Tamika Almaguer [facility] [employer] Farm Manager 09/26/17 Home Theater Experience Expert Relationship Specialty Start Date End Date Daija Morton MD [address] [place] [address] PCP - General Internal Medicine 03/21/17 13, Pharmacist [address] [place] [address] Pharmacist Pharmacy 06/17/21 Kaye Ortega MD [address] [place] [address] General Surgery 09/21/21 Ye Coello MD [address] [place], [place] [id number] General Surgery 10/13/21 Emilie Jauregui PA-C [address] [place] [address] Specialty Line Construction Supervisor Pulmonary and Critical Care Medicine 10/13/21 Ryan May MD [address] [place] [address] Specialty Line Construction Supervisor Vascular Surgery 10/13/21 Geronimo Medina DO [address] [address] Nurses Superintendent Cardiology 10/13/21 Tamika Almaguer [employer] Manager 09/26/17 Home Theater Experience Expert Relationship Specialty Start Date End Date Daija Morton MD [address] [place] [address] PCP - General Internal Medicine 03/21/17 13, Pharmacist [address] [place] [address] Pharmacist Pharmacy 06/17/21 Kaye Ortega MD [address] [place] [address] General Surgery 09/21/21 Ye Coello MD [address] [place] [address] General Surgery 10/13/21 Emilie Jauregui PA-C [address] [place] [address] Specialty Line Construction Supervisor Pulmonary and Critical Care Medicine 10/13/21 Ryan May MD [address] [place] [address] Specialty Line Construction Supervisor Vascular Surgery 10/13/21 Geronimo Medina DO [address] [address] Nurses Superintendent Cardiology 10/13/21 Tamika HARRELL [employer] 09/26/17 Home Theater Experience Expert Relationship Specialty Start Date End Date Daija Morton MD [address] [place] [address] PCP - General Internal Medicine 03/21/17 13, Pharmacist [address] [place] [address] Pharmacist Pharmacy 06/17/21 Kaye Ortega MD [address] [place] [address] General Surgery 09/21/21 Ye Coello MD [address] [place], [place] [phone] General Surgery 10/13/21 Emilie Jauregui PAAshtyn [address] [place] [address] Specialty Line Construction Supervisor Pulmonary and Critical Care Medicine 10/13/21 Ryan May MD [address] [place] [address] Specialty Line Construction Supervisor Vascular Surgery 10/13/21 Geronimo Medina DO [address] [phone] Nurses Superintendent Cardiology 10/13/21 Tamika Almaguer [facility] [employer] Farm Manager 09/26/17 Home Theater Experience Expert Relationship Specialty Start Date End Date Daija Morton MD [address] [place], [place] [address] [phone] PCP - General Internal Medicine 03/21/17 13, Pharmacist [address] [place] [address] Pharmacist Pharmacy 06/17/21 Kaye Ortega MD [address] [place] [phone] General Surgery 09/21/21 eY Coello MD [address] [place], [place] [id number] General Surgery 10/13/21 Emilie Jauregui PA-C [address] [place] [address] Specialty Line Construction Supervisor Pulmonary and Critical Care Medicine 10/13/21 Ryan May MD [address] [place], [place] [phone] Specialty Line Construction Supervisor Vascular Surgery 10/13/21 Geronimo Medina, [address] [address] Nurses Superintendent Cardiology 10/13/21 Tamika Minick Tripp [facility] [employer] Farm Manager 09/26/17 Home Theater Experience Expert Relationship Specialty Start Date End Date Daija Morton MD [address] [place] [address] PCP - General Internal Medicine 03/21/17 13, Pharmacist [address] [place] [address] Pharmacist Pharmacy 06/17/21 04/12/22 Kaye Ortega MD [address] [place] [address] General Surgery 09/21/21 Ye Coello MD [address] [place] [address] General Surgery 10/13/21 Emilie Jauregui PA-C [address] [place] [address] Specialty Line Construction Supervisor Pulmonary and Critical Care Medicine 10/13/21 Ryan May MD [address] [place] [address] Specialty Line Construction Supervisor Vascular Surgery 10/13/21 Geronimo Medina DO [address] [address] Nurses Superintendent Cardiology 10/13/21 Tamika Almaguer [employer] 09/26/17 Team Status: Active Member Role Status [...] Provider Active Андрей Cooley Attending Provider Active Home Theater Experience Expert Relationship Specialty Start Date End Date Daija Morton MD [address] [place] [address] PCP - General Internal Medicine 03/21/17 Kaye Ortega MD [address] [place] [address] General Surgery 09/21/21 Ye Coello MD [address] [place] [address] General Surgery 10/13/21 Emilie Jauregui PA-Edilma [address], [place] 623341 Specialty Line Construction Supervisor Pulmonary and Critical Care Medicine 10/13/21 Ryan May MD [address] [place] [address] Specialty Line Construction Supervisor Vascular Surgery 10/13/21 Geronimo Medina DO [address] [address] Nurses Superintendent Cardiology 10/13/21 Tamika Almaguer [employer] Manager 09/26/17 Home Theater Experience Expert Relationship Specialty Start Date End Date Daija Morton MD [address] [place] [address] PCP - General Internal Medicine 03/21/17 Kaye Ortega MD [address] [place] [address] General Surgery 09/21/21 Ye Coello MD [address] [place], [place] 782726 [phone] General Surgery 10/13/21 Emilie Jauregui PA-C [address] [place] [address] Specialty Line Construction Supervisor Pulmonary and Critical Care Medicine 10/13/21 Ryan May MD [address] [place], [place] 6479995 Specialty Line Construction Supervisor Vascular Surgery 10/13/21 Geronimo Medina, [address] [phone] Nurses Superintendent Cardiology 10/13/21 Tamika Almaguer [facility] [employer] Manager 09/26/17 Home Theater Experience Expert Relationship Specialty Start Date End Date Daija Morton MD [address] [place] [address] PCP - General Internal Medicine 03/21/17 Kaye Ortega MD [address] [place] [address] General Surgery 09/21/21 Ye Coello MD [address] [place], [place] [id number] General Surgery 10/13/21 Emilie Jauregui PA-C [address] [place] [address] Specialty Line Construction Supervisor Pulmonary and Critical Care Medicine 10/13/21 Ryan May MD [address] [place], [place] 4612795 Specialty Line Construction Supervisor Vascular Surgery 10/13/21 Geronimo Medina, DO [address] [address] Nurses Superintendent Cardiology 10/13/21 Tamika HARRELL [employer] 09/26/17 Home Theater Experience Expert Relationship Specialty Start Date End Date Daija Morton MD [address] [place] [address] PCP - General Internal Medicine 03/21/17 Kaye Ortega MD [address] [place] [address] General Surgery 09/21/21 Ye Coello MD [address] [place], [place] 919615 General Surgery 10/13/21 Emilie Jauregui PA-C [address] [place] [address] Specialty Line Construction Supervisor Pulmonary and Critical Care Medicine 10/13/21 Ryan May MD [address] [place], [place] 1545195 Specialty Line Construction Supervisor Vascular Surgery 10/13/21 Geronimo Medina DO [address] [address] Nurses Superintendent Cardiology 10/13/21 Tamika HARRELL [employer] 09/26/17 Home Theater Experience Expert Relationship Specialty Start Date End Date Daija Morton MD [address] [place] [address] PCP - General Internal Medicine 03/21/17 Kaye Ortega MD [address] [place] [address] General Surgery 09/21/21 Ye Coello MD [address] [place] [address] General Surgery 10/13/21 Emilie Jauregui PA-C [address] [place] [address] Specialty Line Construction Supervisor Pulmonary and Critical Care Medicine 10/13/21 Ryan May MD [address] [place] 0475395 Specialty Line Construction Supervisor Vascular Surgery 10/13/21 Geronimo Medina, [address] [phone] Nurses Superintendent Cardiology 10/13/21 Tamika Almaguer [facility] [employer] Manager 09/26/17 Home Theater Experience Expert Relationship Specialty Start Date End Date Daija Morton MD [address] [place] [address] PCP - General Internal Medicine 03/21/17 Kaye Ortega MD [address] [place] [address] General Surgery 09/21/21 Ye Coello MD [address] [place], [place] 278897 [phone] General Surgery 10/13/21 Emilie Jauregui PA-C [address] [place] [address] Specialty Line Construction Supervisor Pulmonary and Critical Care Medicine 10/13/21 Ryan May MD [address] [place], [place] 1218195 Specialty Line Construction Supervisor Vascular Surgery 10/13/21 Geronimo Medina DO [address] [address] Nurses Superintendent Cardiology 10/13/21 Tamika Almaguer [employer] 09/26/17 Home Theater Experience Expert Relationship Specialty Start Date End Date Daija Morton MD [address] [place] [address] PCP - General Internal Medicine 03/21/17 Kaye Ortega MD [address] [place] [address] General Surgery 09/21/21 Ye Coello MD [address] [place], [place] [id number] General Surgery 10/13/21 Emilie Jauregui PA-C [address] [facility] [place] [address] Specialty Line Construction Supervisor Pulmonary and Critical Care Medicine 10/13/21 Ryan May MD [address] [place] [address] Specialty Line Construction Supervisor Vascular Surgery 10/13/21 Geronimo Medina, DO [address] [address] Nurses Superintendent Cardiology 10/13/21 Tamika [employer]UES[employer]ORT [employer] 09/26/17 Home Theater Experience Expert Relationship Specialty Start Date End Date Daija Morton MD [address] [place] [address] PCP - General Internal Medicine 03/21/17 Kaye Ortega MD [address] [place] [address] General Surgery 09/21/21 Ye Coello MD [address] [place], [place] [id number] General Surgery 10/13/21 Emilie Jauregui PA-C [address], [place] 078521 Specialty Line Construction Supervisor Pulmonary and Critical Care Medicine 10/13/21 Ryan May MD [address] [facility] [place] [address] Specialty Line Construction Supervisor Vascular Surgery 10/13/21 Geronimo Medina DO [address] [address] Nurses Superintendent Cardiology 10/13/21 Tamikadestiny Almaguer [facility] [employer] Manager 09/26/17 Team Status: Inactive Member Role Status Dates Dr. Daija Morton MD Primary Care Provider Active Андрей RAIN Attending Provider Active Team Status: Inactive Member Role Status Dates Dr. Daija Morton MD Primary Care Provider Active Dr. Jaden Jauregui MD Emergency Provider Active Home Theater Experience Expert Relationship Specialty Start Date End Date Daija Morton MD [address] [place], [place] 689661 PCP - General Internal Medicine 03/21/17 Kaye Ortega MD [address] [place] [address] General Surgery 09/21/21 Ye Coello MD [address] [place], [place] 742155 General Surgery 10/13/21 Emilie Jauregui PA-C [address] [place] [address] Specialty Line Construction Supervisor Pulmonary and Critical Care Medicine 10/13/21 Ryan May MD [address] [place] [address] Specialty Line Construction Supervisor Vascular Surgery 10/13/21 Geronimo Medina DO [address] [address] Nurses Superintendent Cardiology 10/13/21 Tamika HARRELL [employer] 09/26/17 Home Theater Experience Expert Relationship Specialty Start Date End Date Daija Morton MD [address] [place], [place] 689431 PCP - General Internal Medicine 03/21/17 Kaye Ortega MD [address] [place] [address] General Surgery 09/21/21 Ye Coello MD [address] [place] [address] General Surgery 10/13/21 Eimlie Jauregui PA-C [address] [place] [address] Specialty Line Construction Supervisor Pulmonary and Critical Care Medicine 10/13/21 Ryan May MD [address] [place] [address] Specialty Line Construction Supervisor Vascular Surgery 10/13/21 Geronimo Medina DO [address] [address] Nurses Superintendent Cardiology 10/13/21 Tamika HARRELL [employer] 09/26/17 Team Status: Inactive Member Role Status Dates Dr. Daija Morton MD Primary Care Provider Active Dr. Jaden Jauregui MD Attending Provider, Emergency Provider Active Team Status: Inactive Member Role Status Dates Dr. Daija Morton MD Primary Care Provider Active Dr. Huber Alvarado MD Emergency Provider Active Home Theater Experience Expert Relationship Specialty Start Date End Date Daija Morton MD [address] [place] [address] PCP - General Internal Medicine 03/21/17 Kaye Ortega MD [address] [place] [address] General Surgery 09/21/21 Ye Coello MD [address] [place] [address] General Surgery 10/13/21 Emilie Jauregui PA-C [address] [place] [address] [employer]ty Line Construction Supervisor Pulmonary and Critical Care Medicine 10/13/21 Ryan May MD [address] [place] [address] Specialty Line Construction Supervisor Vascular Surgery 10/13/21 Geronimo Medina DO [address] [address] Nurses Superintendent Cardiology 10/13/21 Tamika Almaguer [facility] [employer] Manager 09/26/17 Team Status: Inactive Member Role Status Dates Dr. Daija Morton MD Primary Care Provider Active Dr. Huber Alvarado MD Attending Provider, Emergency Provider Active Home Theater Experience Expert Relationship Specialty Start Date End Date Daija Morton MD [address] [place] [address] PCP - General Internal Medicine 03/21/17 Kaye Ortega MD [address] [place] [address] General Surgery 09/21/21 Ye Coello MD [address] [place] [address] General Surgery 10/13/21 Emilie Jauregui PANeshaC [address], [place] 970871 Specialty Line Construction Supervisor Pulmonary and Critical Care Medicine 10/13/21 Ryan May MD [address] [place] [address] Specialty Line Construction Supervisor Vascular Surgery 10/13/21 Geronimo Medina DO [address] [address] Nurses Superintendent Cardiology 10/13/21 Tamika Almaguer [facility] [employer] Farm Manager 09/26/17 Team Status: Active Member Role Status [...] MD Admit Provider, Attending Pro vider Active Home Theater Experience Expert Relationship Specialty Start Date End Date Daija Morton MD [address] [place] [address] PCP - General Internal Medicine 03/21/17 Kaye Ortega MD [address] [place] [address] General Surgery 09/21/21 Ye Coello MD [address] [place] [address] General Surgery 10/13/21 Emilie Jauregui PA-C [address] [place] [address] Specialty Line Construction Supervisor Pulmonary and Critical Care Medicine 10/13/21 Ryan May MD [address] [facility] [place] [address] Specialty Line Construction Supervisor Vascular Surgery 10/13/21 Geronimo Medina DO [address] [address] Nurses Superintendent Cardiology 10/13/21 Tamikadestiny Almaguer [facility] [employer] Farm Manager 09/26/17 Team Status: Active Member Role Status [...] Dr. Elton Moore MD Other Provider Active Home Theater Experience Expert Relationship Specialty Start Date End Date Daija Morton MD [address] [place] [address] PCP - General Internal Medicine 03/21/17 Kaye Ortega MD [address] [place] [address] General Surgery 09/21/21 Ye Coello MD [address] [place], [place] [address]8945 General Surgery 10/13/21 Emilie Jauregui PA-C [address] [place] [address] Specialty Line Construction Supervisor Pulmonary and Critical Care Medicine 10/13/21 Ryan May MD [address] [place] [address] Specialty Line Construction Supervisor Vascular Surgery 10/13/21 Geronimo Medina DO [address] [address] Nurses Superintendent Cardiology 10/13/21 Tamika HARRELL [employer] Farm Manager 09/26/17 Home Theater Experience Expert Relationship Specialty Start Date End Date Daija Morton MD [address] [place] [address] PCP - General Internal Medicine 03/21/17 Kaye Ortega MD [address] [place] [address] General Surgery 09/21/21 Ye Coello MD [address] [place] [address] General Surgery 10/13/21 Emilie Jauregui PA-C [address] [place] [address] Specialty Line Construction Supervisor Pulmonary and Critical Care Medicine 10/13/21 Ryan May MD [address] [place] [address] Specialty Line Construction Supervisor Vascular Surgery 10/13/21 Geronimo Medina DO [address] [place] [address] Nurses Superintendent Cardiology 10/13/21 Tamika HARRELL [employer] Manager 09/26/17 Home Theater Experience Expert Relationship Specialty Start Date End Date Daija Morton MD [address] [place] [address] PCP - General Internal Medicine 03/21/17 Kaye Ortega MD [address] [place] [address] General Surgery 09/21/21 Ye Coello MD [address] [place] [address] General Surgery 10/13/21 Emilie Jauregui PA-C [address] [place] [address] Specialty Line Construction Supervisor Pulmonary and Critical Care Medicine 10/13/21 Ryan May MD [address] [place] [address] Specialty Line Construction Supervisor Vascular Surgery 10/13/21 Geronimo Medina DO [address] [place] [address] Nurses Superintendent Cardiology 10/13/21 Tamika Almaguer [facility] [employer] Farm Manager 09/26/17 Team Status: Inactive Member Role Status [...] Provi ashley, Attending Provider, Referring Provider Active Home Theater Experience Expert Relationship Specialty Start Date End Date Daija Morton MD [address] [place] [address] PCP - General Internal Medicine 03/21/17 Kaye Ortega MD [address] [place] [phone] General Surgery 09/21/21 Ye Coello MD [address] [place] [address] General Surgery 10/13/21 Emilie Jauregui, PANeshaC [address] [place] [address] Specialty Line Construction Supervisor Pulmonary and Critical Care Medicine 10/13/21 Ryan May MD [address] [place] [address] Specialty Line Construction Supervisor Vascular Surgery 10/13/21 Geronimo Medina DO [address] [place] [address] Nurses Superintendent Cardiology 10/13/21 Tamika Almaguer [facility] [employer] Farm Manager 09/26/17 Team Status: Active Member Role Status [...] Dr. Ryan Guerin DO Attending Provider Active Home Theater Experience Expert Relationship Specialty Start Date End Date Daija Morton MD [address] [place], [place] [address]111 PCP - General Internal Medicine 03/21/17 Kaye Ortega MD [address] [place] [address] General Surgery 09/21/21 Ye Coello MD [address] [place], [place] 396135 General Surgery 10/13/21 Emilie Jauregui PA-C [address] [place] [address] Specialty Line Construction Supervisor Pulmonary and Critical Care Medicine 10/13/21 Ryan May MD [address] [place] [address] Specialty Line Construction Supervisor Vascular Surgery 10/13/21 Geronimo Medina DO [address] [place] [address] Nurses Superintendent Cardiology 10/13/21 Tamika Almaguer [facility] [employer] Farm Manager 09/26/17 Home Theater Experience Expert Relationship Specialty Start Date End Date Daija Morton MD [address] [place] [address] PCP - General Internal Medicine 03/21/17 Kaye Ortega MD [address] [place] [address] General Surgery 09/21/21 Ye Coello MD [address] [place] [address] General Surgery 10/13/21 Emilie Jauregui PA-C [address], [place] 935821 Specialty Line Construction Supervisor Pulmonary and Critical Care Medicine 10/13/21 Ryan May MD [address] [place] [address] Specialty Line Construction Supervisor Vascular Surgery 10/13/21 Geronimo Medina DO [address] [place] [address] Nurses Superintendent Cardiology 10/13/21 Tamika HARRELL [employer] Manager 09/26/17 Home Theater Experience Expert Relationship Specialty Start Date End Date Daija Morton MD [address] [place] [address] PCP - General Internal Medicine 03/21/17 Kaye Ortega MD [address] [place] [address] General Surgery 09/21/21 Ye Coello MD [address] [place], [place] [address] General Surgery 10/13/21 Emilie Jauregui PA-C [address] [facility] [place], [place] [address] Specialty Line Construction Supervisor Pulmonary and Critical Care Medicine 10/13/21 Ryan May MD [address] [place] [address] Specialty Line Construction Supervisor Vascular Surgery 10/13/21 Geronimo Medina DO [address] [place] [address] Nurses Superintendent Cardiology 10/13/21 Tamika Almaguer [facility] [employer] Farm Manager 09/26/17 Home Theater Experience Expert Relationship Specialty Start Date End Date Daija Morton MD [address] [place], [place] [address]561 PCP - General Internal Medicine 03/21/17 Kaye Ortega MD [address] [place] [address] General Surgery 09/21/21 Ye Coello MD [address] [place] [address] General Surgery 10/13/21 Emilie Jauregui PA-C [address] [facility] [place] [address] Specialty Line Construction Supervisor Pulmonary and Critical Care Medicine 10/13/21 Ryan May MD [address] [place] [address] Specialty Line Construction Supervisor Vascular Surgery 10/13/21 Geronimo Medina DO [address] [place] [address] Nurses Superintendent Cardiology 10/13/21 Tamika HARRELL [employer] Manager 09/26/17 Home Theater Experience Expert Relationship Specialty Start Date End Date Daija Morton MD [address] [place] [address] PCP - General Internal Medicine 03/21/17 Kaye Ortega MD [address] [place] [address] General Surgery 09/21/21 Ye Coello MD [address] [place] [address] General Surgery 10/13/21 Emilie Jauregui PA-C [address] [place] [address] Specialty Line Construction Supervisor Pulmonary and Critical Care Medicine 10/13/21 Ryan May MD [address] [place] [address] Specialty Line Construction Supervisor Vascular Surgery 10/13/21 Geronimo Medina DO [address] [place] [address] Nurses Superintendent Cardiology 10/13/21 Tamika HARRELL [employer] Manager 09/26/17 Home Theater Experience Expert Relationship Specialty Start Date End Date Daija Morton MD [address] [place] [address] PCP - General Internal Medicine 03/21/17 Kaye Ortega MD [address] [place] [address] General Surgery 09/21/21 Ye Coello MD [address] [place] [address] General Surgery 10/13/21 Emilie Jauregui PA-C [address] [place] [address] Specialty Line Construction Supervisor Pulmonary and Critical Care Medicine 10/13/21 Ryan May MD [address] [place] [address] Specialty Line Construction Supervisor Vascular Surgery 10/13/21 Geronimo Medina DO [address] [place] [address] Nurses Superintendent Cardiology 10/13/21 Tamika Almaguer [facility] [employer] Farm Manager 09/26/17 Home Theater Experience Expert Relationship Specialty Start Date End Date Daija Morton MD [address] [place] [address] PCP - General Internal Medicine 03/21/17 Kaye Ortega MD [address] [place] [address] General Surgery 09/21/21 Ye Coello MD [address] [place] [address] General Surgery 10/13/21 Emilie Jauregui PA-C [address] [facility] [place], [place] [address] Specialty Line Construction Supervisor Pulmonary and Critical Care Medicine 10/13/21 Ryan May MD [address] [place] [address] Specialty Line Construction Supervisor Vascular Surgery 10/13/21 Geronimo Medina DO [address] [place] [address] Nurses Superintendent Cardiology 10/13/21 Tamika Almaguer [facility] [employer] Farm Manager 09/26/17 Home Theater Experience Expert Relationship Specialty Start Date End Date Daija Morton MD [address] [place] [address] PCP - General Internal Medicine 03/21/17 Kaye Ortega MD [address] [facility] [place] [address] General Surgery 09/21/21 Ye Coello MD [address] [place] [address] General Surgery 10/13/21 Emilie Jauregui PA-C [address] [facility] [place] [address] Specialty Line Construction Supervisor Pulmonary and Critical Care Medicine 10/13/21 Ryan May MD [address] [place] [address] Specialty Line Construction Supervisor Vascular Surgery 10/13/21 Geronimo Medina DO [address] [place] [address] Nurses Superintendent Cardiology 10/13/21 Tamika HARRELL [employer] Manager 09/26/17 Home Theater Experience Expert Relationship Specialty Start Date End Date Daija Morton MD [address] [place], [place] 253421 PCP - General Internal Medicine 03/21/17 Kaye Ortega MD [address] [place] [address] General Surgery 09/21/21 Ye Coello MD [address] [place] 755385 General Surgery 10/13/21 Emilie Jauregui PANeshaC [address] [place] [address] Specialty Line Construction Supervisor Pulmonary and Critical Care Medicine 10/13/21 Ryan May MD [address] [place] [address] Specialty Line Construction Supervisor Vascular Surgery 10/13/21 Geronimo Medina DO [address] [place] [address] Nurses Superintendent Cardiology 10/13/21 Tamika HARRELL [employer] Manager 09/26/17 Home Theater Experience Expert Relationship Specialty Start Date End Date Daija Morton MD [address] [place] [address] PCP - General Internal Medicine 03/21/17 Beatriz Correa PHOTOGRAPHIC TECHNICIAN [address] [facility] [place] [address] Referring 09/28/20 10/12/21 Daija Morton MD [address] [place] [address] Home Care Provider Internal Medicine 09/28/20 10/12/21 Fco Franklin, SEYMOUR [address] [place] [address] Carton Inspector 10/08/20 12/21/20 Tamika Almaguer [facility] [employer] Farm Manager 09/26/17 Home Theater Experience Expert Relationship Specialty Start Date End Date Daija Morton MD [address] [place], [place] 552341 PCP - General Internal Medicine 03/21/17 Kaye Ortega MD [address] [place] [address] General Surgery 09/21/21 Ye Coello MD [address] [place] [address] General Surgery 10/13/21 Emilie Jauregui PA-C [address] [place] [address] Specialty Line Construction Supervisor Pulmonary and Critical Care Medicine 10/13/21 Ryan May MD [address] [place] [address] Specialty Line Construction Supervisor Vascular Surgery 10/13/21 Geronimo Medina DO [address] [place] [address] Nurses Superintendent Cardiology 10/13/21 Tamika HARRELL [employer] Manager 09/26/17 Home Theater Experience Expert Relationship Specialty Start Date End Date Daija Morton MD [address] [place], [place] 803141 PCP - General Internal Medicine 03/21/17 Kaye Ortega MD [address] [place] [address] General Surgery 09/21/21 Ye Coello MD [address] [place] [address] General Surgery 10/13/21 Emilie Jauregui PA-C [address] [place] [address] Specialty Line Construction Supervisor Pulmonary and Critical Care Medicine 10/13/21 Ryan May MD [address] [place] [address] Specialty Line Construction Supervisor Vascular Surgery 10/13/21 Geronimo Medina DO [address] [place] [address] Nurses Superintendent Cardiology 10/13/21 Tamika Almaguer [facility] [employer] Manager 09/26/17 Home Theater Experience Expert Relationship Specialty Start Date End Date Daija Morton MD [address] [place], [place] 203591 PCP - General Internal Medicine 03/21/17 Kaye Ortega MD [address] [place] [address] General Surgery 09/21/21 Ye Coello MD [address] [place], [place] 347[address] General Surgery 10/13/21 Emilie Jauregui PA-C [address] [facility] [place] [address] [phone] Specialty Line Construction Supervisor Pulmonary and Critical Care Medicine 10/13/21 Ryan May MD [address] [place] [address] Specialty Line Construction Supervisor Vascular Surgery 10/13/21 Geronimo Medina DO [address] [place] [address] Nurses Superintendent Cardiology 10/13/21 Tamika Almaguer [facility] [employer] Farm Manager 09/26/17 Home Theater Experience Expert Relationship Specialty Start Date End Date Daija Morton MD [address] [place], [place] 960161 PCP - General Internal Medicine 03/21/17 Kaye Ortega MD [address] [place] [address] General Surgery 09/21/21 Ye Coello MD [address] [place] [address] General Surgery 10/13/21 Emilie Jauregui PA-C [address] [facility] [place] [address] [phone] Specialty Line Construction Supervisor Pulmonary and Critical Care Medicine 10/13/21 Ryan May MD [address] [place] [address] Specialty Line Construction Supervisor Vascular Surgery 10/13/21 Geronimo Medina DO [address] [place] [address] Nurses Superintendent Cardiology 10/13/21 Tamika Canales [facility] [place] [employer] Farm Manager 09/26/17 Team Status: Active Member Role Status [...] November 05, 2024 End: November 05, 2024 Home Theater Experience Expert Relationship Specialty Start Date End Date Daija Morton MD [address] [place], [place] [address]281 PCP - General Internal Medicine 03/21/17 Kaye Ortega MD [address] [facility] [place] [address] General Surgery 09/21/21 Ye Coello MD [address] [place] [address] General Surgery 10/13/21 Emilei Jauregui, PA-C [address], [place] 617301 Specialty Line Construction Supervisor Pulmonary and Critical Care Medicine 10/13/21 Ryan May MD [address] [place], [place] 13637[address] Specialty Line Construction Supervisor Vascular Surgery 10/13/21 Geronimo Medina DO [address] [place] [address] Nurses Superintendent Cardiology 10/13/21 Anjel Braga APRN.PHOTOGRAPHIC TECHNICIAN [address] [place], [place] 232151 Inventory And Pricing Associate Internal Medicine 05/26/24 Tamika Canales [facility] [place] [employer] Farm Manager 09/26/17 Home Theater Experience Expert Relationship Specialty Start Date End Date Daija Morton MD [address] [place], [place] 942081 PCP - General Internal Medicine 03/21/17 Kaye Ortega MD [address] [place] [address] General Surgery 09/21/21 Ye Coello MD [address] [place], [place] 608805 General Surgery 10/13/21 Emilie Jauregui PA-C [address], [place] 27227691 Specialty Line Construction Supervisor Pulmonary and Critical Care Medicine 10/13/21 Ryan May MD [address] [place], [place] 09733[address] Specialty Line Construction Supervisor Vascular Surgery 10/13/21 Geronimo Medina DO [address] [place] [address] Nurses Superintendent Cardiology 10/13/21 Anjel Braga APRN.PHOTOGRAPHIC TECHNICIAN [address] [place], [place] 203271 Inventory And Pricing Associate Internal Medicine 05/26/24 Tamika Almaguer [facility] [employer] Farm Manager 09/26/17 Home Theater Experience Expert Relationship Specialty Start Date End Date Daija Morton MD [address] [place], [place] 505411 PCP - General Internal Medicine 03/21/17 Kaye Ortega MD [address] [place] [address] General Surgery 09/21/21 Ye Coello MD [address] [place], [place] 6748[address] General Surgery 10/13/21 Emilie Jauregui, PA-C [address], [place] 750251 Specialty Line Construction Supervisor Pulmonary and Critical Care Medicine 10/13/21 Ryan May MD [address] [place] [address] Specialty Line Construction Supervisor Vascular Surgery 10/13/21 Geronimo Medina DO [address] [place] [address] Nurses Superintendent Cardiology 10/13/21 Anjel Braga APRN.PHOTOGRAPHIC TECHNICIAN [address] [place] [address] Inventory And Pricing Associate Internal Medicine 05/26/24 Tamika Almaguer [employer] Farm Manager 09/26/17 Home Theater Experience Expert Relationship Specialty Start Date End Date Daija Morton MD [address] [place], [place] 486711 PCP - General Internal Medicine 03/21/17 Kaye Ortega MD [address] [place] [address] General Surgery 09/21/21 Ye Coello MD [address] [place], [place] 9655[address] General Surgery 10/13/21 Emilie Jauregui PA-C [address], [place] 764151 Specialty Line Construction Supervisor Pulmonary and Critical Care Medicine 10/13/21 Ryan May MD [address] [place] [address] Specialty Line Construction Supervisor Vascular Surgery 10/13/21 Geronimo Medina DO [address] [place] [address] Nurses Superintendent Cardiology 10/13/21 Anjel Braga APRN.PHOTOGRAPHIC TECHNICIAN [address] [place] [address] Inventory And Pricing Associate Internal Medicine 05/26/24 Tamika Almaguer [employer] Farm Manager 09/26/17 Home Theater Experience Expert Relationship Specialty Start Date End Date Daija Morton MD [address] [place] [address] PCP - General Internal Medicine 03/21/17 Kaye Ortega MD [address] [place] [address] General Surgery 09/21/21 Ye Coello MD [address] [place] [address] General Surgery 10/13/21 Emilie Jauregui PA-C [address] [place], [place] 393041 Specialty Line Construction Supervisor Pulmonary and Critical Care Medicine 10/13/21 Ryan May MD [address] [place] [address] Specialty Line Construction Supervisor Vascular Surgery 10/13/21 Geronimo Medina DO [address] [place] [address] Nurses Superintendent Cardiology 10/13/21 Anjel Braga APRN.PHOTOGRAPHIC TECHNICIAN [address] [place] [address] Inventory And Pricing Associate Internal Medicine 05/26/24 Tamika Almaguer [facility] [employer] Farm Manager 09/26/17 Home Theater Experience Expert Relationship Specialty Start Date End Date Daija Morton MD [address] [place] [address] PCP - General Internal Medicine 03/21/17 Kaye Ortega MD [address] [place] [address] General Surgery 09/21/21 Ye Coello MD [address] [place] [address] General Surgery 10/13/21 Emilie Jauregui PA-C [address] [place], [place] [id number] Specialty Line Construction Supervisor Pulmonary and Critical Care Medicine 10/13/21 Ryan May MD [address] [facility] [place] [address] Specialty Line Construction Supervisor Vascular Surgery 10/13/21 Geronimo Medina DO [address] [place] [address] Nurses Superintendent Cardiology 10/13/21 Anjel Braga APRN.PHOTOGRAPHIC TECHNICIAN [address] [place], [place] 60117[address] Inventory And Pricing Associate Internal Medicine 05/26/24 [facility] [employer] Farm Manager 09/26/17 Team Status: Active Member Role/Relationship Status [...] Provider Active Start: August 30, 2024 Dr. Cleia Toribio MD Other Provider Active Star t: [...] Provider Active Start : December 16, 2024 Home Theater Experience Expert Relationship Specialty Start Date End Date Daija Morton MD [address] [place], [place] 117781 PCP - General Internal Medicine 03/21/17 Kaye Ortega MD [address] [place] [address] General Surgery 09/21/21 Ye Coello MD [address] [place], [place] 128985 General Surgery 10/13/21 Emilie Jauregui PA-C [address] [place], [place] 553381 Specialty Line Construction Supervisor Pulmonary and Critical Care Medicine 10/13/21 Ryan May MD [address] [place] [address] Specialty Line Construction Supervisor Vascular Surgery 10/13/21 Geronimo Medina DO [address] [place] [address] Nurses Superintendent Cardiology 10/13/21 Anjel Braga APRN.PHOTOGRAPHIC TECHNICIAN [address] [place], [place] [address] Inventory And Pricing Associate Internal Medicine 05/26/24 Tamika Almaguer [employer] Farm Manager 09/26/17 Home Theater Experience Expert Relationship Specialty Start Date End Date Daija Morton MD [address] [place] [address] PCP - General Internal Medicine 03/21/17 Kaye Ortega MD [address] [place] [address] General Surgery 09/21/21 Ye Coello MD [address] [place] [address] General Surgery 10/13/21 Emilie Jauregui, PANeshaC [address], [place] 737771 Specialty Line Construction Supervisor Pulmonary and Critical Care Medicine 10/13/21 Ryan May MD [address] [place] [address] Specialty Line Construction Supervisor Vascular Surgery 10/13/21 Geronimo Medina DO [address] [place] [address] Nurses Superintendent Cardiology 10/13/21 Anjel Braga APRN.PHOTOGRAPHIC TECHNICIAN [address] [place] [address] [facility] Internal Medicine 05/26/24 Tamika Ally HARRELL [employer] Farm Manager 09/26/17 Team Status: Active Member Role/Relationship Status Dates Dr. Daija Morton MD Primary Care Provider Active Start: December 17, 2024 Dr. Seth Pritchard DO Emergency Provider Active Start: December 17, 2024 Dr. Roman Patel DO Admit Provider Active Start: December 17, 2024 Dr. Roman Patel DO Attending Provider Active Start: December 17, 2024 Home Theater Experience Expert Relationship Specialty Start Date End Date Daija Morton MD [address] [place] [address] PCP - General Internal Medicine 03/21/17 Kaey Ortega MD [address] [place] [address] General Surgery 09/21/21 Ye Coello MD [address] [place], [place] 470565 General Surgery 10/13/21 Emilie Jauregui PANeshaC [address] [place], [place] 711071 Specialty Line Construction Supervisor Pulmonary and Critical Care Medicine 10/13/21 Ryan May MD [address] [place] [address] Specialty Line Construction Supervisor Vascular Surgery 10/13/21 Geronimo Medina DO [address] [place] [address] Nurses Superintendent Cardiology 10/13/21 Anjel Braga APRN.PHOTOGRAPHIC TECHNICIAN [address] [place], [place] [address]181 Inventory And Pricing Associate Internal Medicine 05/26/24 Tamika HARRELL [employer] Farm Manager 09/26/17 Team Status: Inactive Member Role/Relationship Status [...] Active Start : August 29, 2024 Dr. Cleia Toribio MD Attending Provider [...] Provider Active Sta rt: December 24, 2024 aTmika Xiao MD Other Provider Active Start : [...] Provider Active Start : December 26, 2024 Home Theater Experience Expert Relationship Specialty Start Date End Date Daija Morton MD [address] [place], [place] [address]871 PCP - General Internal Medicine 03/21/17 Kaye Ortega MD [address] [place] [address] General Surgery 09/21/21 Ye Coello MD [address] [place] [address] General Surgery 10/13/21 Emilie Jauregui, PA-C [address] [place] [address] Specialty Line Construction Supervisor Pulmonary and Critical Care Medicine 10/13/21 Ryan May MD [address] [place] [address] Specialty Line Construction Supervisor Vascular Surgery 10/13/21 Geronimo Medina DO [address] [place] [address] Nurses Superintendent Cardiology 10/13/21 Anjel Braga APRN.PHOTOGRAPHIC TECHNICIAN [address] [place], [place] [address]59441 Inventory And Pricing Associate Internal Medicine 05/26/24 Tamika Almaguer [facility] [employer] Farm Manager 09/26/17 Team Status: Active Member Role/Relationship Status [...] St art: December 16, 2024 Dr. Lisha Talmaantes DO Attending Provider Active S tart: December [...] Active Start : December 20, 2024 Angelo iWley MD Other Provider Active Start: December 20, [...] Provider Active Start: December 23, 2024 Amy Cuhn MD Other Provider Active Start : December [...] Provider Active S tart: January 08, 2025 Home Theater Experience Expert Relationship Specialty Start Date End Date Daija Morton MD [address] [place] [address] PCP - General Internal Medicine 03/21/17 Kaye Ortega MD [address] [place] [address] General Surgery 09/21/21 Ye Coello MD [address] [place] [address] General Surgery 10/13/21 Emilie Jauregui, PA-C [address] [place], [place] 702201 Specialty Line Construction Supervisor Pulmonary and Critical Care Medicine 10/13/21 Ryan May MD [address] [place] [address] Specialty Line Construction Supervisor Vascular Surgery 10/13/21 Geronimo Medina DO [address] [place] [address] Nurses Superintendent Cardiology 10/13/21 Anjel Braga APRN.PHOTOGRAPHIC TECHNICIAN [address], [place] [id number] Inventory And Pricing Associate Internal Medicine 05/26/24 Tamika Almaguer [facility] [employer] Farm Manager 09/26/17 Team Status: Active Member Role/Relationship Status [...] Provider Active Start: January 07, 2025 Dr. Frnakie Galindo MD Admit Provider Active Star t: [...] End: January 09, 2025 Josefa Doss NP, [employer]-C Attending Provider Active Start: January 09, 2025 [...] 2025 End: January 09, 2025 Josefa Doss [employer], [employer]ER-C Attending Provider Active Start: January 09, 2025 [...] 2025 End: January 23, 2025 Hannah Busch [employer]-C Attending Provider Active S tart: January 23, [...] End: December 27, 2024 Josefa Doss NP [employer]-C Attending Provider Active Start: December 27, 2024 [...] 2025 End: January 09, 2025 Josefa Doss [employer], [employer]ER-C Attending Provider Active Start: January 09, 2025 [...] St art: December 15, 2024 Dr. Shilpa Conrteras MD Other Provider Active St art: December [...] Provider Active Start: December 23, 2024 Chrystal Coliler MD Other Provider Active Start : December [...] Start : December 26, 2024 Dr. Daylin Schimtt MD Other Provider Active Start : December [...] 2024 End: December 27, 2024 Josefa Doss [employer]ER, [employer]ER-C Attending Provider Active Start: December 27, 2024 [...] 2025 End: February 04, 2025 Josefa Doss [employer]ER, [employer]ER-C Attending Provider Active Start: February 04, 2025 [...] ON THE PRIMARY CLINICAL RECORDS. [facility] [employer] [facility]. provides no warranty or guarantee of the accuracy or completeness of information in this document.
[2025-06-17 08:24] LABS: Hematocrit 31.6 % (40-54); Hemoglobin 9.6 g/dL (13.0-16.5); Mean Corp Hgb Conc 30.4 g/dL (32-36); Mean Corpuscular Volume 82.1 fL (80-94); Mean Platelet Vol. 9.6 fl (6.2-12.0); Platelet Count 551 K/mm3 (150-450); RBC Distribution Width CV 18.3 % (11.6-14.6); RBC Distribution Width SD 55.0 fl (35.1-43.9); Red Blood Count 3.85 M/mm3 (4.6-6.2); White Blood Count 9.3 K/mm3 (4.4-11.0)
[2025-06-17 08:35] LABS: Carbamazepine (Tegretol) 10.8 ug/mL (4.0-12.0)
[2025-06-17 08:39] LABS: Anion Gap 8 (7-18); BUN 24 mg/dL (4-19); BUN/Creat Ratio 26.2 RATIO (10-20); Calcium,Total 9.4 mg/dL (7.6-11.0); Carbon Dioxide 30.7 mmol/L (20.0-29.0); Chloride 96 mmol/L (96-106); Glucose 95 mg/dL (70-99); Potassium 4.2 mmol/L (3.5-5.1)
== END ==
LOC: OLS.SW 05:00
PROVIDERS: PCP Internal Medicine; Visit Provider Internal Medicine
DX: D64.9 Anemia, unspecified (principal); J44.9 Chronic obstructive pulmonary disease, unspecified
CPT/HCPCS: 36415; 80048; 80156; 85027